=== PATIENT | female | born 1955 | race Caucasian/White ===

== ENCOUNTER → 2024-08-15 06:38 | Outpatient (REF) | payer MEDICARE, MEDICAID, SELFPAY ==
[2024-08-15 10:04] LABS: Hematocrit 34.7 % (37-47); Hemoglobin 10.4 g/dL (12.0-15.0); Mean Corpuscular Hgb 31.2 pg (27.0-32.0); Mean Corpuscular Volume 104.2 fL (81-99); Mean Platelet Vol. 9.8 fl (6.2-12.0); Platelet Count 236 K/mm3 (150-450); Red Blood Count 3.33 M/mm3 (4.2-5.4); White Blood Count 9.4 K/mm3 (4.4-11.0)
[2024-08-15 10:17] LABS: Anion Gap 7 (5-15); BUN 13 mg/dL (4-19); BUN/Creat Ratio 28.5 RATIO (10-20); Calcium,Total 8.8 mg/dL (7.6-11.0); Carbon Dioxide 31.7 mmol/L (21.0-32.0); Chloride 103 mmol/L (98-108); Creatinine, Serum 0.47 mg/dL (0.70-1.20); EST Glomerular Filtration Rate 104 (>60); Glucose 85 mg/dL (70-99); Potassium 3.9 mmol/L (3.3-5.1); Sodium Level 142 mmol/L (133-145)
== END ==
LOC: OLS.SANC 06:38
PROVIDERS: Visit Provider Internal Medicine
DX: J44.9 Chronic obstructive pulmonary disease, unspecified (principal); E87.6 Hypokalemia
CPT/HCPCS: 36415; 80048; 85027

== ENCOUNTER → 2024-08-22 04:00 | Outpatient (REF) | payer MEDICARE, MEDICAID, SELFPAY ==
--- OUTSIDE RECORDS SUMMARY | 2024-08-22 04:24 | XMS RPT_ITS | CCD ---
Author Organization [facility] ion Partnership [facility] Care Team Providers Care Knifeman Name Role Phone Ellis CHANDRAKANT Jameson Attending Unavailable Results Test Name Value Interpretation Reference Range Facil ity Basic Metabolic Profile (BMP )on 08-15-2024 BUN/CRE 28.5 RATIO High 10-20 [facility] Comment on above: Order Comment: 102-2 Performed By: #### L 100.0500, L500.2500 #### [facility] [address] [place], [address] Calcium [Mass/Vol] 8.8 mg/dL Normal 7.6-11.0 [facility] Comment on above: Order Comment: 102-2 Performed By: #### L 100.0500, L500.2500 #### [facility] [address] [place], [address] Chloride [Moles/Vol] 103 mmol/L Normal 98-108 [facility] Comment on above: Order Comment: 102-2 Performed By: #### L 100.0500, L500.2500 #### [facility] [address] [place], [address] CO2 [Moles/Vol] 31.7 mmol/L Normal 21.0-32.0 [facility] Comment on above: Order Comment: 102-2 Performed By: #### L 100.0500, L500.2500 #### [facility] [address] [place], [address] Creatinine [Mass/Vol] 0.47 mg/dL Low 0.70-1.20 [facility] Comment on above: Order Comment: 102-2 Performed By: #### L 100.0500, L500.2500 #### [facility] [address] [place], [address] GAP 7 Normal 5-15 [facility] Comment on above: Order Comment: 102-2 Performed By: #### L 100.0500, L500.2500 #### [facility] [address] [place], [address] GFR/1.73 sq M.predicted among non-blacks MDRD (S/P/Bld) [Vol rate/Area] 104 mL/min/{1.73_m2} Normal >60 [facility] Comment on above: Order Comment: 102-2 Result Comment: mL/m in/1.73m2 CKD-EPI Creatinine Equation (2020) Performed By: #### L 100.0500, L500.2500 #### [facility] [address] [place], [address] Glucose [Mass/Vol] 85 mg/dL Normal 70-99 [facility] Comment on above: Order Comment: 102-2 Performed By: #### L 100.0500, L500.2500 #### [facility] [address] [place], [address] Potassium [Moles/Vol] 3.9 mmol/L Normal 3.3-5.1 [facility] Comment on above: Order Comment: 102-2 Performed By: #### L 100.0500, L500.2500 #### [facility] [address] [place], [address] Sodium [Moles/Vol] 142 mmol/L Normal 133-145 [facility] Comment on above: Order Comment: 102-2 Performed By: #### L 100.0500, L500.2500 #### [facility] [address] [place], [address] Urea nitrogen [Mass/Vol] 13 mg/dL Normal 4-19 [facility] Comment on above: Order Comment: 102-2 Performed By: #### L 100.0500, L500.2500 #### [facility] [address] [place], [address] CBC-Complete Blood Cnt No Di ffon 08-15-2024 Erythrocyte distribution width (RBC) [Ratio] 14.0 % Normal 11.6-14.6 [facility] Comment on above: Order Comment: 102-2 Performed By: #### L 100.0500, L500.2500 #### [facility] [address] [place], [address] Hematocrit (Bld) [Volume fraction] 34.7 % Low 37-47 [facility] Comment on above: Order Comment: 102-2 Performed By: #### L 100.0500, L500.2500 #### [facility] [address] [place], [address] Hemoglobin (Bld) [Mass/Vol] 10.4 g/dL Low 12.0-15.0 [facility] Comment on above: Order Comment: 102-2 Performed By: #### L 100.0500, L500.2500 #### [facility] [address] [place], [address] MCH (RBC) [Entitic mass] 31.2 pg Normal 27.0-32.0 [facility] Comment on above: Order Comment: 102-2 Performed By: #### L 100.0500, L500.2500 #### [facility] [address] [place], [address] MCHC (RBC) [Mass/Vol] 30.0 g/dL Low 32-36 [facility] Comment on above: Order Comment: 102-2 Performed By: #### L 100.0500, L500.2500 #### [facility] [address] [place], [address] MCV (RBC) [Entitic vol] 104.2 fL High 81-99 [facility] Comment on above: Order Comment: 102-2 Performed By: #### L 100.0500, L500.2500 #### [facility] [address] [place], [address] Platelet mean volume (Bld) [Entitic vol] 9.8 fL Normal 6.2-12.0 [facility] Comment on above: Order Comment: 102-2 Performed By: #### L 100.0500, L500.2500 #### [facility] [address] [place], [address] Platelets (Bld) [#/Vol] 236 10*3/uL Normal 150-450 [facility] Comment on above: Order Comment: 102-2 Performed By: #### L 100.0500, L500.2500 #### [facility] [address] [place], [address] RBC (Bld) [#/Vol] 3.33 10*6/uL Low 4.2-5.4 [facility] Comment on above: Order Comment: 102-2 Performed By: #### L 100.0500, L500.2500 #### [facility] [address] [place], [address] RDW SD 54.0 fl High 35.1-43.9 [facility] Comment on above: Order Comment: 102-2 Performed By: #### L 100.0500, L500.2500 #### [facility] [address] [place], [address] WBC (Bld) [#/Vol] 9.4 10*3/uL Normal 4.4-11.0 [facility] Comment on above: Order Comment: 102-2 Performed By: #### L 100.0500, L500.2500 #### [facility] [address] [place], [address] Encounters Encounter Date Encounter Type Care Provider Facility Start: 08-15-2024 ambulatory Jameson Mcgraw lity:[facility] Payers Date Payer Category Payer Self-pay Summary Purpose Family History No Family History Records Found Advance Directives No Advanced Directives Records Found Additional Source Comments INFORMATION SOURCE (unrecogn ized section and content) DATE CREATED AUTHOR 08/18/2024 [facility] FOR RECORDS PERTAINING TO PATIENTS WHO ARE OR HAVE BEEN ENROLLED IN A CHEMICAL DEPENDENCY/SUBSTANCEABUSE PROGRAM, SOME INFORMATION MAY BE OMITTED. This clinical summary was aggregated from multiple sources. Caution should be exercised in using it in the provision of clinical care. This summary normalizes information from multiple sources, and as a consequence, information in this document may materially change the coding, format and clinical context of patient data. In addition, data may be omitted in some cases. CLINICAL DECISIONS SHOULD BE BASED ON THE PRIMARY CLINICAL RECORDS. [employer] provides no warranty or guarantee of the accuracy or completeness of information in this document.
--- OUTSIDE RECORDS SUMMARY | 2024-08-22 04:24 | XMS RPT_ITS | CCD ---
Author Organization [facility] ion Partnership [facility] Care Team Providers Care Pin Game Machine Inspector Name Role Phone Ellis CHANDRAKANT Jmaeson Attending Unavailable Results Test Name Value Interpretation Reference Range Facil ity Basic Metabolic Profile (BMP )on 08-15-2024 BUN/CRE 28.5 RATIO High 10-20 [facility] Comment on above: Order Comment: 102-2 Performed By: #### L 100.0500, L500.2500 #### [facility] [address] [place], [address] Calcium [Mass/Vol] 8.8 mg/dL Normal 7.6-11.0 [facility] Comment on above: Order Comment: 102-2 Performed By: #### L 100.0500, L500.2500 #### [facility] [address] [place], [address] Chloride [Moles/Vol] 103 mmol/L Normal 98-108 [facility] Comment on above: Order Comment: 102-2 Performed By: #### L 100.0500, L500.2500 #### [facility] [address] [place], [address] CO2 [Moles/Vol] 31.7 mmol/L Normal 21.0-32.0 [facility] Comment on above: Order Comment: 102-2 Performed By: #### L 100.0500, L500.2500 #### [facility] [address] [place], [address] Creatinine [Mass/Vol] 0.47 mg/dL Low 0.70-1.20 [facility] Comment on above: Order Comment: 102-2 Performed By: #### L 100.0500, L500.2500 #### [facility] [address] [place], [address] GAP 7 Normal 5-15 [facility] Comment on above: Order Comment: 102-2 Performed By: #### L 100.0500, L500.2500 #### [facility] [address] [place], [address] GFR/1.73 sq M.predicted among non-blacks MDRD (S/P/Bld) [Vol rate/Area] 104 mL/min/{1.73_m2} Normal >60 [facility] Comment on above: Order Comment: 102-2 Result Comment: mL/m in/1.73m2 CKD-EPI Creatinine Equation (2020) Performed By: #### L 100.0500, L500.2500 #### [facility] [address] [place], [address] Glucose [Mass/Vol] 85 mg/dL Normal 70-99 [facility] Comment on above: Order Comment: 102-2 Performed By: #### L 100.0500, L500.2500 #### [facility] [address] [place], [address] Potassium [Moles/Vol] 3.9 mmol/L Normal 3.3-5.1 [facility] Comment on above: Order Comment: 102-2 Performed By: #### L 100.0500, L500.2500 #### [facility] [address] [place], [address] Sodium [Moles/Vol] 142 mmol/L Normal 133-145 [facility] Comment on above: Order Comment: 102-2 Performed By: #### L 100.0500, L500.2500 #### [facility] [address] [place], [address] Urea nitrogen [Mass/Vol] 13 mg/dL Normal 4-19 [facility] Comment on above: Order Comment: 102-2 Performed By: #### L 100.0500, L500.2500 #### [facility] [address] [place], [address] CBC-Complete Blood Cnt No Di ffon 08-15-2024 Erythrocyte distribution width (RBC) [Ratio] 14.0 % Normal 11.6-14.6 [facility] Comment on above: Order Comment: 102-2 Performed By: #### L 100.0500, L500.2500 #### [facility] [address] [place], [address] Hematocrit (Bld) [Volume fraction] 34.7 % Low 37-47 [facility] Comment on above: Order Comment: 102-2 Performed By: #### L 100.0500, L500.2500 #### [facility] [address] [place], [address] Hemoglobin (Bld) [Mass/Vol] 10.4 g/dL Low 12.0-15.0 [facility] Comment on above: Order Comment: 102-2 Performed By: #### L 100.0500, L500.2500 #### [facility] [address] [place], [address] MCH (RBC) [Entitic mass] 31.2 pg Normal 27.0-32.0 [facility] Comment on above: Order Comment: 102-2 Performed By: #### L 100.0500, L500.2500 #### [facility] [address] [place], [address] MCHC (RBC) [Mass/Vol] 30.0 g/dL Low 32-36 [facility] Comment on above: Order Comment: 102-2 Performed By: #### L 100.0500, L500.2500 #### [facility] [address] [place], [address] MCV (RBC) [Entitic vol] 104.2 fL High 81-99 [facility] Comment on above: Order Comment: 102-2 Performed By: #### L 100.0500, L500.2500 #### [facility] [address] [place], [address] Platelet mean volume (Bld) [Entitic vol] 9.8 fL Normal 6.2-12.0 [facility] Comment on above: Order Comment: 102-2 Performed By: #### L 100.0500, L500.2500 #### [facility] [address] [place], [address] Platelets (Bld) [#/Vol] 236 10*3/uL Normal 150-450 [facility] Comment on above: Order Comment: 102-2 Performed By: #### L 100.0500, L500.2500 #### [facility] [address] [place], [address] RBC (Bld) [#/Vol] 3.33 10*6/uL Low 4.2-5.4 [facility] Comment on above: Order Comment: 102-2 Performed By: #### L 100.0500, L500.2500 #### [facility] [address] [place], [address] RDW SD 54.0 fl High 35.1-43.9 [facility] Comment on above: Order Comment: 102-2 Performed By: #### L 100.0500, L500.2500 #### [facility] [address] [place], [address] WBC (Bld) [#/Vol] 9.4 10*3/uL Normal 4.4-11.0 [facility] Comment on above: Order Comment: 102-2 Performed By: #### L 100.0500, L500.2500 #### [facility] [address] [place], [address] Encounters Encounter Date Encounter Type Care Provider Facility Start: 08-15-2024 ambulatory Jameson Mcgraw lity:[facility] Payers Date Payer Category Payer Self-pay Summary Purpose Family History No Family History Records Found Advance Directives No Advanced Directives Records Found Additional Source Comments INFORMATION SOURCE (unrecogn ized section and content) DATE CREATED AUTHOR 08/18/2024 [facility] FOR RECORDS PERTAINING TO PATIENTS WHO [...] BE BASED ON THE PRIMARY CLINICAL RECORDS. [employer] provides no warranty or guarantee of the accuracy or completeness of information in this document.
[2024-08-22 08:18] LABS: Thyroid Stim Hormone (TSH) 0.786 uIU/mL (0.300-4.200)
== END ==
LOC: OLS.SANC 04:00
PROVIDERS: Referring Provider Internal Medicine; Visit Provider Internal Medicine
DX: E03.9 Hypothyroidism, unspecified (principal)
CPT/HCPCS: 36415; 84443

== ENCOUNTER → 2024-09-14 | Outpatient (REF) | payer MEDICARE, MEDICAID, SELFPAY ==
--- OUTSIDE RECORDS SUMMARY | 2024-09-14 04:16 | XMS RPT_ITS | CCD ---
Author Organization [facility] CliniSyin Care Team Providers Care Credit Department Manager Name Role Phone Herminia Case Primary Care Provider Evie, Herminia Primary Care Unavailable Evie, Herminia Referring Unavailable Ziyad Menendez Attending Unavailable Evie, Herminia Primary Care Unavailable Distel, Herminia Referring Unavailable Ziyad Menendez Attending Unavailable Evie, Herminia Primary Care Unavailable Distel, Herminia Referring Unavailable Ziyad Menendez Attending Unavailable Distel, Herminia Primary Care Unavailable Distel, Herminia Referring Unavailable Ziyad Menendez Attending Unavailable Distel, Herminia Primary Care Unavailable Distel, Herminia Referring Unavailable Ziyad Menendez Attending Unavailable Distel Herminia MAHAJAN Primary Care Provider Herminia Case MD Primary Care Provider Herminia Case MD Primary Care Provider Ziyad Menendez MD Unavailable Aj LAMINATING PRESS OPERATOR - AN/SSN 2 4 OPERATOR, Sally Unavailable Afshin LAMINATING PRESS OPERATOR - AN/SSN 2 4 OPERATOR, Kisha Unavailable Ziyad Menendez MD Unavailable Aj LAMINATING PRESS OPERATOR - AN/SSN 2 4 OPERATOR, Sally Unavailable Ziyad Menendez MD Unavailable Herminia Case MD Primary Care Provider Herminia Case MD Primary Care Provider Ziyad Menendez MD Unavailable Aj LAMINATING PRESS OPERATOR - AN/SSN 2 4 OPERATOR, Sally Unavailable Melva Juárez PA-C Unavailable Herminia Case MD Primary Care Provider Evie MAHAJAN, Herminia Unavailable Evie MAHAJAN, Herminia Unavailable DISTEL, HERMINIA Primary Care Unavailable BARBI GOLDBERG Attending Unavailabl e DISTEL, HERMINIA Attending Unavailable DISTEL, HERMINIA Primary Care Unavailable DISTEL, HERMINIA Attending Unavailable DISTEL, HERMINIA Primary Care Unavailable DISTEL, HERMINIA Primary Care Unavailable SELF Referring Unavailable DISTEL, HERMINIA Attending Unavailable DISTEL, HERMINIA Primary Care Unavailable JOAQUINA MARTINEZ Attending Unava ilable Ellis STALLINGS, Jameson Attending Unavailable Ellis STALLINGS, Jameson Attending Unavailable DISTEL, HERMINIA Primary Care Unavailable ELYSSA TESFAYE Attending Unavailable DISTEL, HERMINIA Primary Care Unavailable SHON, ZIYAD Attending Unavailable SHON, ZIYAD Referring Unavailable DISTEL, HERMINIA Primary Care Unavailable DISTEL, HERMINIA Primary Care Unavailable BETSEY GRESHAM Consulting Unavailable DEJUAN BISHOP Admitting Unavailable RENA BEVERLY Attending Unavailable DISTEL, HERMINIA Primary Care Unavailable MIGUEL, NICKOLAS Admitting Unavailable BETSEY GRESHAM Consulting Unavailable ROLAND ORTIZ Attending Unavailable EVANGELINA DESAI Consulting Unavailable DISTEL, HERMINIA Primary Care Unavailable FLAKO ALTAMIRANO Attending Unavailable Allergies Allergy Classification Reported Allergen(s) Allergy Type Date of Onset Reaction(s) Facility (20 sources) Seasonal allergy; Translations: [SEASONAL ALLERGIES] Allergy to substance 08-16-2017 Intolerance [facility] Work Phone: (20 sources) Pollen Allergy to substance 08-16-2017 Unknown [facility] Medications Current Medications Medication Drug Class(es) Dates Sig (Normalized) Sig (Original) acetaminophen 325 mg / oxyCODONE hydrochloride 5 mg oral tablet (20 sources) Opioid Agonist Start: 10-17-2023 End: 08-22-2024 take 1 tablet by mouth every six hours as needed for pain oxyCODONE-acetamino phen (PERCOCET) 5-325 mg tablet Indications: Compression fracture of body of thoracic vertebra (HCC) , Other closed nondisplaced fracture of proximal end of right humerus with routine healing, subsequent encounter Take 1 tablet by mouth every 6 hours as needed for pain for up to 30 days. 120 tablet 07/23/2024 Active Start: 10-16-2023 End: 10-16-2023 1 tablet, Oral, Once, On 10/16/23 at 1950, For 1 dose, Maximum dose of acetaminophen is 4000 mg from all sources in 24 hours. Start: 05-03-2023 End: 10-15-2023 take 1 tablet by mouth every six hours as needed for pain oxyCODONE-acetaminophen (PERCOCET) 5-325 mg tablet Indications: Compression fracture of body of thoracic vertebra (HCC) , Other closed nondisplaced fracture of proximal end of right humerus with routine healing, subsequent encounter Take 1 tablet by mouth every 6 hours as needed for pain for up to 30 days. 120 tablet 0 09/15/2023 10/15/2023 Active Start: 02-18-2023 End: 02-23-2023 take 1 tablet by mouth every six hours as needed for pain oxyCODONE-acetaminophen (Percocet) 5-325 MG tablet Indications: Nondisplaced fracture of neck of left femur (HCC) Take 1 tablet by mouth every 6 hours as needed for moderate pain (4-6) for up to 5 days. 15 tablet 0 02/18/2023 02/23/2023 Active Start: 02-13-2023 End: 02-18-2023 take 1 tablet by mouth every six hours as needed for pain oxyCODONE-acetaminophen (Percocet) 5-325 MG per tablet 1 tablet Start: 11-08-2022 End: 11-11-2022 take 1 tablet by mouth every six hours as needed for pain oxyCODONE-acetaminophen (Percocet) 5-325 MG tablet Indications: Closed displaced intertrochanteric fracture of left femur, initial encounter ([facility]) Take 1 tablet by mouth every 6 hours as needed for moderate pain (4-6) or severe pain (7-10) for up to 3 days. 12 tablet 0 11/08/2022 11/11/2022 Active Start: 11-06-2022 End: 11-07-2022 take 1 tablet by mouth every six hours as needed for pain and pain oxyCODONE-acetaminophen (Percocet) 5-325 MG per tablet 1 tablet Start: 08-28-2022 End: 05-04-2023 take 1 tablet by mouth every four hours as needed for pain oxyCODONE-acetaminophen (PERCOCET) 5-325 mg tablet Indications: Compression fracture of body of thoracic vertebra (HCC) , Other closed nondisplaced fracture of proximal end of right humerus with routine healing, subsequent encounter Take 1 tablet by mouth every 4 hours as needed for pain for up to 30 days. 134 tablet 0 04/04/2023 05/02/2023 Discontinued Start: 06-03-2022 End: 08-26-2022 take 1 tablet by mouth every four hours as needed for pain oxyCODONE-acetaminophen (PERCOCET) 5-325 mg tablet Indications: Compression fracture of body of thoracic vertebra (HCC) , Other closed nondisplaced fracture of proximal end of right humerus with routine healing, subsequent encounter Take 1 tablet by mouth every 4 hours as needed for pain for up to 30 days. 134 tablet 0 07/27/2022 08/26/2022 Active Start: 05-24-2022 End: 05-29-2022 take 1 tablet by mouth every six hours as needed for pain oxyCODONE-acetaminophen (Percocet) 10-325 MG tablet Indications: Closed fracture of neck of right humerus, initial encounter Take 1 tablet by mouth every 6 hours as needed for moderate pain (4-6) or severe pain (7-10) for up to 5 days. 15 tablet 0 05/24/2022 05/29/2022 Active Start: 05-21-2022 End: 05-24-2022 take 2 tablets by mouth every six hours as needed for pain oxyCODONE-acetaminophen (Percocet) 5-325 MG per tablet 2 tablet Start: 04-09-2022 End: 06-06-2022 take 1 tablet by mouth every six hours as needed for pain oxyCODONE-acetaminophen (Percocet) 5-325 MG tablet Indications: Humeral head fracture, right, closed, initial encounter Take 1 tablet by mouth every 6 hours as needed for moderate pain (4-6) for up to 5 days. 12 tablet 0 05/23/2022 05/24/2022 Discontinued (Stop taking at discharge) Start: 06-01-2021 End: 04-07-2022 take 1 tablet by mouth every six hours as needed for pain oxyCODONE-acetaminophen (PERCOCET) 5-325 mg tablet Indications: Compression fracture of body of thoracic vertebra (HCC) Take 1 tablet by mouth every 6 hours as needed for pain for up to 30 days. 120 tablet 0 03/08/2022 04/07/2022 Discontinued Start: 10-16-2020 End: 10-16-2020 oxyCODONE-acetaminophen (PER COCET) 5-325 MG per tablet 1 tablet Start: 11-21-2019 oxyCODONE-acet aminophen (PERCOCET) 5-325 MG per tablet 1 tablet Start: 10-27-2019 End: 10-27-2019 oxyCODONE-acetaminophen (PER COCET) 5-325 MG per tablet 2 tablet Start: 10-27-2019 End: 11-02-2019 oxyCODONE-acetaminophen (PER COCET) 7.5-325 MG per tablet Indications: Compression fracture of L3 lumbar vertebra, sequela Take 1 tablet by mouth every 8 hours as needed for Pain for up to 6 days. Intended supply: 30 days 18 tablet 0 10/27/2019 11/02/2019 Active Start: 10-21-2019 End: 10-21-2019 oxyCODONE-acetaminophen (PER COCET) 5-325 MG per tablet 1 tablet Start: 10-21-2019 End: 10-24-2019 take 1 tablet by mouth every six hours as needed for pain, then take 1 tablet by mouth as needed for pain oxyCODONE-acetaminophen (PERCOCET) 5-325 MG per tablet Indications: Compression fracture of lumbar vertebra, initial encounter, unspecified lumbar vertebral level (HCC) Take 1 tablet by mouth every 6 hours as needed for Pain for up to 3 days. Intended supply: 3 days. Take lowest dose possible to manage pain 12 tablet 0 10/21/2019 10/24/2019 Active Start: 08-02-2019 End: 10-21-2019 take 1 tablet by mouth every six hours as needed for pain 1 tablet, Oral, EVERY 6 HOURS PRN, Pain Severe (7-10), Starting Olga 08/02/19 at 2107 Maximum dose of acetaminophen is 4000 mg from all sources in 24 hours. Start: 08-02-2019 End: 08-02-2019 oxyCODONE-acetaminophen (PER COCET) 5-325 MG per tablet 1.5 tablet take 1 tablet by shanna th every four hours as needed for pain oxyCODONE-acetaminophen (PERCOCET) 7.5-325 MG per tablet Take 1 tablet by mouth every 4 hours as needed for Pain. 0 Active Comment on above: Take 1 tablet by shanna th every 6 hours as needed for pain for up to 30 days. Take 1 tablet by shanna th every 6 hours as needed for pain for up to 30 days. Do not start before July 30, 2021. Take 1 tablet by shanna th every 6 hours as needed for pain for up to 30 days. Do not start before April 09, 2022. Take 1 tablet by shanna th every 4 hours as needed for pain for up to 30 days. albuterol 0.83 mg/ml inhalation solution (20 sources) beta2-Adrenergic Agonist Start: 08-08-2024 End: 08-08-2025 albuterol (2.5 MG/3ML) 0.083% nebulizer solution Indications: Pulmonary emphysema, unspecified emphysema type (HCC) , Chronic obstructive pulmonary disease, unspecified COPD type (HCC) Take 3 mL (2.5 mg) by nebulization 2 times daily. 08/08/2024 08/08/2025 Active Start: 08-04-2024 End: 08-08-2024 2.5 mg, Nebulization, 2 time s daily, First dose on 08/04/24 at 0800, Initiate RT Bronchodilator Protocol? Yes Start: 07-30-2024 End: 08-08-2024 2.5 mg, Nebulization, Every 4 hours PRN, wheezing, shortness of breath, Starting on 07/30/24 at 2149, Initiate RT Bronchodilator Protocol? Yes Start: 12-14-2023 End: 06-11-2024 take 2 puff(s) by inhalation every four hours as needed for wheezing albuterol HFA (PROVENTIL HFA, VENTOLIN HFA) 90 mcg/actuation inhaler Indications: Panlobular emphysema (HCC) Inhale 2 Puffs as instructed every 4 hours as needed for wheezing/shortness of breath. 18 g 5 12/14/2023 Active Start: 02-13-2023 End: 02-18-2023 albuterol (2.5 MG/3ML) 0.083 % nebulizer solution 2.5 mg Start: 06-22-2022 take 3 mL by inhalat ion every four hours as needed albuterol (PROVENTIL) 2.5 mg /3 mL (0.083 %) nebulizer solution INHALE 3 ML VIA NEBULIZER EVERY 4 HOURS NEEDED FOR WHEEZE OR FOR SHORTNESS OF BREATH 90 mL 1 06/22/2022 Active Start: 06-22-2022 End: 06-22-2022 take 2.5 mg by inhalation every four hours as needed albuterol (PROVENTIL) 2.5 mg /3 mL (0.083 %) nebulizer solution Use 3 mL via nebulizer every 4 hours as needed for wheezing/shortness of breath. 30 mL 1 06/22/2022 06/22/2022 Discontinued Start: 08-06-2021 End: 02-18-2023 take 2 puff(s) by inhalation every four hours as needed albuterol 108 (90 Base) MCG/ACT inhaler Inhale 2 puffs every 4 hours as needed. 08/06/2021 Active Start: 06-06-2020 End: 02-02-2022 take 2 puff(s) by inhalation every four hours as needed for wheezing albuterol HFA (PROVENTIL HFA, VENTOLIN HFA) 90 mcg/actuation inhaler Indications: Panlobular emphysema (HCC) Inhale 2 Puffs as instructed every 4 hours as needed for wheezing/shortness of breath. 18 g 5 08/06/2021 Active Start: 03-16-2020 albuterol (PRO VENTIL) nebulizer solution 2.5 mg Start: 11-21-2019 2.5 mg, Nebuli zation, EVERY 4 HOURS PRN, Wheezing, Starting Tue11/21/19 at 2145 Start: 12-30-2015 albuterol (PRO VENTIL) 2.5 mg /3 mL (0.083 %) nebulizer solution albuterol sulfat e HFA 108 (90 BASE) MCG/ACT inhaler Indications: as needed noted on 02/20 Inhale 2 puffs into the lungs every 6 hours as needed for Wheezing Indications: as needed noted on 02/20 Active albuterol sulfat e HFA 108 (90 BASE) MCG/ACT inhaler Indications: as needed noted on 02/20 Inhale 2 puffs into the lungs every 6 hours as needed for Wheezing Indications: as needed noted on 02/20 Active Comment on above: Inhale 2 Puffs as in structed every 4 hours as needed for Wheezing/Shortness of Breath. Use 3 mL via nebuliz er every 4 hours as needed for wheezing/shortness of breath. INHALE 3 ML VIA NEBU LIZER EVERY 4 HOURS NEEDED FOR WHEEZE OR FOR SHORTNESS OF BREATH albuterol sulfate HFA 108 (90 Base) MCG/ACT inhaler (1 source) Start: 08-02-19 albuterol sulfate HFA 108 (90 Base) MCG/ACT inhaler alendronic acid 70 mg oral tablet (20 sources) Bisphosphonate Start: 12-15-19 End: 12-27-19 take 1 tablet by mouth every week alendronate (FOSAMAX) 70 mg tablet Indications: Age-related osteoporosis without current pathological fracture TAKE 1 TABLET BY MOUTH ONE TIME A WEEK. 4 tablet 11 12/27/2023 12/26/2024 Active Start: 10-28-2020 End: 10-28-2021 take 1 tablet by mouth every week alendronate (FOSAMAX) 70 mg tablet Indications: Age-related osteoporosis without current pathological fracture Take 1 tablet by mouth one time a week. 12 tablet 3 10/28/2020 Active Alendronate Sodi um (FOSAMAX PO) Take by mouth once a week 0 Active Comment on above: Take 1 tablet by shanna th one time a week. aspirin 81 mg delayed release oral tablet (20 sources) Platelet Aggregation Inhibitor, Nonsteroidal Anti-inflammatory Drug Start: 11-25-2019 End: 08-08-2024 aspirin 81 MG EC tablet Take 81 mg by mouth. 11/25/2019 Active Start: 11-21-2019 aspirin EC tab let 81 mg Comment on above: Take 81 mg by mouth. atorvastatin 40 mg oral tablet (20 sources) HMG-CoA Reductase Inhibitor Start: 11-21-19 End: 07-31-19 take 1 tablet by mouth once daily atorvastatin (LIPITOR) 40 mg tablet Indications: Hyperlipidemia, mixed TAKE 1 TABLET BY MOUTH EVERY DAY AT NIGHT 90 tablet 3 2022 Active Comment on above: TAKE 1 TABLET BY SHANNA TH EVERY DAY AT NIGHT azithromycin 250 mg oral tablet (2 sources) Macrolide Antimicrobial Start: 03-16-20 End: 03-26-19 azithromycin (ZITHROMAX) 250 MG tablet Indications: COPD exacerbation (HCC) , Bronchitis Take 2 tablets (500 mg total) on Day 1, followed by 1 tablet (250 mg) once daily on Days 2 through 5. 1 packet 0 03/16/2020 03/26/2020 Active Start: 08-03-2019 End: 08-03-2019 azithromycin (ZITHROMAX) tab let 500 mg benzonatate 100 mg oral capsule (1 source) Non-narcotic Antitussive Start: 03-16-2020 End: 03-23-2020 take 1 capsule by mouth three times daily as needed for cough benzonatate (TESSALON PERLES) 100 MG capsule Take 1 capsule by mouth 3 times daily as needed for Cough 30 capsule 0 03/16/2020 03/23/2020 Active bisacodyl 5 mg delayed release oral tablet (1 source) Stimulant Laxative Start: 11-21-2019 take 5 mg by mouth once daily as needed for constipation 5 mg, Oral, DAILY PRN, Constipation, Starting Tue11/21/19 at 2148 First line therapy for constipation. 24 hr buPROPion hydrochloride 150 mg extended release oral tablet (20 sources) Aminoketone Start: 07-16-2024 End: 08-08-2024 take 1 tablet by mouth once daily buPROPion XL (WELLBUTRIN XL) 150 mg 24 hr tablet Indications: Major depression, recurrent, chronic TAKE 1 TABLET BY MOUTH EVERY DAY 90 tablet 3 07/16/2024 Active Start: 08-06-2021 End: 11-08-2022 take 1 tablet by mouth every twenty-four hours in the morning buPROPion XL (Wellbutrin XL) 150 MG 24 hr tablet Take 150 mg by mouth in the morning. 08/06/2021 Active Start: 02-02-2021 End: 09-22-2023 take 1 tablet by mouth once daily buPROPion XL (WELLBU JOSEPH XL) 150 mg 24 hr tablet Indications: Major depression, recurrent, chronic take 1 tablet by mouth every day 90 tablet 3 07/20/2023 Active Start: 11-22-2019 take 150 mg by mouth once sean y 150 mg, Oral, DAILY, First dose on Olga 11/22/19 at 0900 Do not crush or break. Start: 08-03-2019 take 50 mg by mouth once daily 50 mg, Oral, DAILY, First dose on Tue08/03/19 at 0900 take 150 mg by mouth once daily buPROPion HCl (WELLBUTRIN PO) Take 150 mg by mouth daily 0 Active take 50 mg by mouth once daily b uPROPion HCl (WELLBUTRIN PO) Take 50 mg by mouth daily 0 Active Comment on above: Take 1 tablet by shanna th once daily. TAKE 1 TABLET BY SHANNA TH EVERY DAY busPIRone hydrochloride 15 mg oral tablet (20 sources) Start: 08-14-2024 take 1 tablet by mouth three times daily busPIRone (BUSPAR) 15 mg tablet Indications: PAUL (generalized anxiety disorder) TAKE 1 TABLET BY MOUTH THREE TIMES A DAY 270 tablet 1 08/14/2024 Active Start: 02-07-2024 End: 03-08-2024 take 1 tablet by mouth three times daily busPIRone (BUSPAR) 15 mg tablet Indications: PAUL (generalized anxiety disorder) Take 1 tablet by mouth three times a day. 90 tablet 5 02/07/2024 03/08/2024 Active Start: 09-21-2023 End: 08-08-2024 take 1 tablet by mouth twice daily busPIRone (Buspar) 15 MG tablet Take 1 tablet (15 mg) by mouth 2 times daily. 60 tablet 09/22/2023 Active Start: 05-02-2023 End: 10-16-2023 take 1 tablet by mouth three times daily busPIRone (BUSPAR) 15 mg tablet Indications: PAUL (generalized anxiety disorder) Take 1 tablet by mouth three times a day. 90 tablet 0 09/16/2023 10/16/2023 Active Comment on above: Take 1 tablet by shanna th three times a day. calcium carbonate 625 mg / cholecalciferol 125 unt oral tablet (20 sources) Vitamin D calcium carbonate-cholecalcifer ol (Oyster Shell) 250-3.125 MG-MCG tablet Take 1 tablet by mouth. Active Calcium Citrate / Vitamin D (20 sources) Calcium Citrate- Vitamin D (CALCIUM + D PO) Take by mouth 2 times daily 0 Active cefTRIAXone sodium 1 g in sodium chloride 0.9 % 100 mL IVPB (add-vantage) (1 source) Start: 08-03-19 cefTRIAXone sodium 1 g in sodium chloride 0.9 % 100 mL IVPB (add-vantage) cholecalciferol 0.025 mg oral tablet (6 sources) Vitamin D Start: 09-22-19 End: 10-23-19 24 take 1 tablet by mouth once daily cholecalciferol (Vitamin D-3) 25 MCG (1000 UT) tablet Take 1 tablet (1,000 Units) by mouth daily. 30 tablet 09/23/2023 10/23/2023 Active cyclobenzaprine hydrochloride 5 mg oral tablet (20 sources) Muscle Relaxant Start: 01-09-20 End: 06-27-19 take 1 tablet by mouth every twelve hours cyclobenzaprine (FLEXERIL) 5 mg tablet Indications: Compression fracture of body of thoracic vertebra (HCC) , Other closed nondisplaced fracture of proximal end of right humerus with routine healing, subsequent encounter Take 1 tablet by mouth every 12 hours. 30 tablet 2 06/26/2024 Active Start: 06-11-2023 End: 01-09-2024 take 1 tablet by mouth twice daily as needed cyclobenzaprine (FLEXERIL) 5 mg tablet Indications: Compression fracture of body of thoracic vertebra (HCC) , Other closed nondisplaced fracture of proximal end of right humerus with routine healing, subsequent encounter take 1 tablet by mouth twice a day as needed 30 tablet 2 08/08/2023 01/09/2024 Discontinued Start: 02-14-2023 End: 09-22-2023 take 1 tablet by mouth three times daily as needed for muscle spasms cyclobenzaprine (Flexeril) 10 MG tablet Take 1 tablet (10 mg) by mouth 3 times daily as needed for muscle spasms for up to 10 days. 02/18/2023 09/22/2023 Discontinued (Stop taking at discharge) Start: 05-03-2022 End: 05-08-2023 take 1 tablet by mouth twice daily as needed cyclobenzaprine (FLEXERIL) 5 mg tablet Indications: Compression fracture of body of thoracic vertebra (HCC) , Other closed nondisplaced fracture of proximal end of right humerus with routine healing, subsequent encounter Take 1 tablet by mouth two times a day as needed. 90 tablet 0 02/07/2023 05/08/2023 Active Start: 02-09-2022 End: 04-07-2022 take 1 tablet by mouth three times daily as needed cyclobenzaprine (FLEXERIL) 5 mg tablet Indications: Chronic midline low back pain without sciatica Take 1 tablet by mouth three times daily as needed. 30 tablet 0 03/08/2022 04/07/2022 Active Start: 11-21-2021 End: 12-21-2021 take 1 tablet by mouth three times daily as needed cyclobenzaprine (FLEXERIL) 5 mg tablet Indications: Chronic midline low back pain without sciatica Take 1 tablet by mouth three times daily as needed. 30 tablet 0 11/21/2021 12/21/2021 Active Start: 08-06-2021 End: 09-05-2021 take 1 tablet by mouth three times daily as needed cyclobenzaprine (FLEXERIL) 5 mg tablet Indications: Chronic midline low back pain without sciatica Take 1 tablet by mouth three times daily as needed. 30 tablet 0 08/06/2021 09/05/2021 Active Start: 05-06-2021 End: 08-04-2021 take 1 tablet by mouth twice daily as needed cyclobenzaprine (FLEXERIL) 5 mg tablet Indications: Compression fracture of body of thoracic vertebra (HCC) Take 1 tablet by mouth twice daily as needed. 30 tablet 2 05/06/2021 08/04/2021 Active Start: 11-21-2019 take 10 mg by mouth three times daily as needed for muscle spasms 10 mg, Oral, 3 TIMES DAILY PRN, Muscle spasms, Starting 11/21/19 at 2146 Start: 01-08-2016 End: 10-21-2019 cyclobenzaprine (FLEXERIL) 1 0 MG tablet Indications: taking as needed noted on 02/07 Take 10 mg by mouth 2 times daily as needed Indications: taking as needed noted on 02/07 0 01/08/2016 Active Comment on above: Take 1 tablet by shanna twice daily as needed. Take 1 tablet by shanna three times daily as needed. TAKE 1 TABLET BY SHANAN TWICE A DAY NEEDED Take 1 tablet by shanna two times a day as needed. Take 10 mg by mouth. docusate sodium 50 mg / sennosides, group home 8.6 mg oral tablet (20 sources) Start: 09-21-2023 End: 10-22-2023 take 1 tablet by mouth once daily senna-docusate sodium (Senokot-S) 8.6-50 MG tablet Take 1 tablet by mouth Nightly. 30 tablet 09/22/2023 10/22/2023 Active Start: 02-08-2020 senna-docusate (PERICOLACE) 8.6-50 MG per tablet Indications: Drug induced constipation Take 2 tablets by mouth 2 times daily as needed for Constipation (Take 2 tabs daily and if needed take twice a day to maintain regular BMs) 0 02/08/2020 Active Start: 11-21-2019 take 1 tablet by shanna th twice daily as needed for constipation 1 tablet, Oral, 2 TIMES DAILY PRN, constipation, Starting 11/21/19 at 2146 Start: 10-27-2019 End: 02-08-2020 take 8.6-50 mg by mouth once as needed senna-docusate (PERICOLACE) 8.6-50 MG per tablet Take 2 tablets by mouth daily as needed for Constipation 20 tablet 0 10/27/2019 02/08/2020 Discontinued doxycycline hyclate 100 mg oral capsule (20 sources) Tetracycline-class Drug Start: 12-30-2023 End: 01-06-2024 take 1 capsule by mouth twice daily doxycycline hyclate (VIBRAMYCIN) 100 mg capsule Indications: Panlobular emphysema (HCC) Take 1 capsule (100 mg) by mouth two times a day for 7 days. 14 capsule 12/30/2023 01/06/2024 Active Start: 08-07-2023 End: 08-17-2023 take 1 tablet by mouth twice daily doxycycline (Vibra-Tabs) 100 MG tablet Take 1 tablet (100 mg) by mouth 2 times daily for 10 days. Take with a full glass of water and do not lie down for at least 30 minutes after. 20 tablet 0 08/07/2023 08/17/2023 Active Start: 09-15-2022 End: 09-25-2022 take 1 capsule by mouth twice daily doxycycline hyclate (VIBRAMYCIN) 100 mg capsule Indications: Panlobular emphysema (HCC) Take 1 capsule by mouth twice daily for 10 days. 20 capsule 0 09/15/2022 09/25/2022 Active Start: 01-30-2020 End: 05-21-2022 doxycycline (Vibramycin) 100 MG capsule Start: 08-04-2019 End: 08-09-2019 take 1 tablet by mouth twice daily doxycycline hyclate (VIBRA-TABS) 100 MG tablet Take 1 tablet by mouth 2 times daily for 5 days 10 tablet 0 08/04/2019 08/09/2019 Active Comment on above: Take 1 capsule by [facility] twice daily for 7 days. Take 1 capsule by mo [facility] twice daily for 10 days. 60 actuat fluticasone propionate 0.25 mg/actuat / salmeterol 0.05 mg/actuat dry powder inhaler (20 sources) Corticosteroid, beta2-Adrenergic Agonist Start: 08-19-2024 take 250 ug by inhalation once daily Fluticasone-Salme terol 250-50 MCG/ACT aerosol powder Inhale 250 mcg daily. 30 DAY SUPPLY 08/19/2024 Active Start: 04-24-2024 End: 10-21-2024 take 1 puff(s) by mouth twice daily fluticasone-salmeterol (ADVAIR, WIXELA) 250-50 mcg/dose inhaler Indications: Pulmonary emphysema, unspecified emphysema type (HCC) Inhale 1 Puff as instructed two times a day. RINSE AND GARGLE MOUTH WITH WATER AFTER EACH USE. 60 Each 5 04/24/2024 10/21/2024 Active Start: 01-09-2024 End: 01-11-2024 take 1 puff(s) by mouth twice daily fluticasone-salmeterol (ADVAIR, WIXELA) 250-50 mcg/dose inhaler Indications: Pulmonary emphysema, unspecified emphysema type (HCC) INHALE 1 PUFF INSTRUCTED TWO TIMES A DAY. RINSE AND GARGLE MOUTH WITH WATER AFTER EACH USE. 60 Each 5 01/09/2024 01/11/2024 Discontinued (Patient chooses alternative therapy) Start: 01-09-2024 End: 07-07-2024 take 1 puff(s) by mouth twice daily fluticasone-salmeterol (ADVAIR, WIXELA) 250-50 mcg/dose inhaler Indications: Pulmonary emphysema, unspecified emphysema type (HCC) INHALE 1 PUFF INSTRUCTED TWO TIMES A DAY. RINSE AND GARGLE MOUTH WITH WATER AFTER EACH USE. 60 Each 5 01/09/2024 07/07/2024 Active Start: 07-08-2023 End: 01-04-2024 take 1 puff(s) by mouth twice daily fluticasone-salmeterol (ADVAIR DISKUS) 250-50 mcg/dose inhaler Indications: Pulmonary emphysema, unspecified emphysema type (HCC) Inhale 1 Puff as instructed two times a day. RINSE AND GARGLE MOUTH WITH WATER AFTER EACH USE. 1 Each 5 07/08/2023 01/04/2024 Active Fluticasone Furoate-Vilanterol (BREO ELLIPTA IN) (19 sources) Fluticasone Furoate-Vilanterol (BREO ELLIPTA IN) Inhale into the lungs daily 0 Active folic acid 1 mg oral tablet (9 sources) Start: 08-07-2024 End: 08-09-2025 take 1 tablet by mouth once daily folic acid (Folvite) 1 MG tablet Take 1 tablet (1 mg) by mouth daily. 08/09/2024 08/09/2025 Active 12 hr guaiFENesin 600 mg extended release oral tablet (5 sources) Start: 08-20-2024 take 2 tablets by mouth twice daily as needed for cough guaiFENesin (Mucinex) 600 MG 12 hr tablet Indications: Chronic obstructive pulmonary disease with acute lower respiratory infection (HCC) Take 2 tablets (1,200 mg) by mouth 2 times daily as needed for cough or congestion for up to 28 doses. Do not crush, chew, or split. 56 tablet 08/20/2024 Active Start: 08-03-2019 guaiFENesin (M UCINEX) extended release tablet 600 mg 3 ml heparin sodium, porcine 100 unt/ml prefilled syringe (11 sources) Unfractionated Heparin, Anti-coagulant Start: 10-14-2021 End: 10-15-2021 heparin flush 100 UNIT/ML injection 500 Units Start: 09-24-2020 End: 09-25-2020 heparin flush 100 UNIT/ML in jection 500 Units Start: 06-09-2020 End: 06-10-2020 heparin flush 100 UNIT/ML in jection 500 Units Start: 02-21-2020 End: 02-22-2020 heparin flush 100 UNIT/ML in jection 500 Units Start: 02-07-2020 End: 02-09-2020 heparin flush 100 UNIT/ML in jection 500 Units Start: 01-31-2020 End: 02-02-2020 heparin flush 100 UNIT/ML in jection 500 Units Start: 01-24-2020 End: 01-26-2020 heparin flush 100 UNIT/ML in jection 500 Units Start: 01-17-2020 End: 01-18-2020 heparin flush 100 UNIT/ML in jection 500 Units hydrOXYzine hydrochloride 10 mg oral tablet (1 source) Antihistamine Start: 11-23-2019 hydrOXYzine (A TARAX) tablet 10 mg 4 ml labetalol hydrochloride 5 mg/ml cartridge (1 source) beta-Adrenergic Brigid Start: 11-21-2019 10 mg, Intravenous, EVERY 10 MIN PRN, High Blood Pressure, Starting Tue11/21/19 at 2147 Administer 10 mg IV every 10 min if SBP is 210 mmHg or greater OR DBP is 120 mmHg or greater as long as HR is greater than 65bp m until goal BP has been achieved and to a max of 30 mg Notify provider if SBP is 210 mmHg or greater OR DBP is 120 mmHg or greater after 3 consecutive doses. If HR is less than 65 call MD for further orders lidocaine 25 mg/ml / prilocaine 25 mg/ml topical cream (14 sources) Antiarrhythmic, Amide Local Anesthetic Start: 12-13-2019 lidocaine-prilocaine (EMLA) 2.5-2.5 % cream Apply dime size amount to port 1 hour prior to access 1 Tube 3 12/13/2019 Active Magnesium Oxide (20 sources) magnesium oxide (Mag-Ox) 400 mg tablet 400 mg daily. Active magnesium oxide (Mag-Ox) 400 mg tablet 400 mg daily. 0 Active melatonin 3 mg oral tablet (20 sources) Start: 09-20-2023 End: 08-08-2024 take 1 tablet by mouth once daily melatonin 3 MG tablet Take 1 tablet (3 mg) by mouth Nightly. 09/22/2023 Active Start: 05-21-2022 End: 05-24-2022 take 6 mg by mouth once daily as needed for sleep 6 mg, Oral, Nightly PRN, sleep, Starting on Tue05/21/22 at 0525 mirtazapine 30 mg oral tablet (20 sources) Start: 06-07-2024 End: 12-04-2024 take 1 tablet by mouth once daily at bedtime mirtazapine (REMERON) 30 mg tablet Indications: Moderate episode of recurrent major depressive disorder (HCC) Take 1 tablet by mouth daily at bedtime. 90 tablet 1 06/07/2024 12/04/2024 Active Start: 06-10-2023 End: 08-08-2024 take 1 tablet by mouth once daily mirtazapine (Remeron) 15 MG tablet Take 1 tablet (15 mg) by mouth Nightly. 30 tablet 09/22/2023 Active Start: 05-20-2023 End: 08-18-2023 take 1 tablet by mouth once daily at bedtime Mirtazapine (REMERON) 7.5 mg tablet Indications: Moderate episode of recurrent major depressive disorder (HCC) Take 1 tablet by mouth daily at bedtime. 30 tablet 2 05/20/2023 06/10/2023 Discontinued Comment on above: Take 1 tablet by shanna th daily at bedtime. montelukast 10 mg oral tablet (20 sources) Leukotriene Receptor Antagonist Start: End: take 1 tablet by mouth once daily at bedtime montelukast (SINGULAIR) 10 mg tablet Take 10 mg by mouth daily at bedtime. 2022 Active Start: 08-02-2019 End: 11-08-2022 take 10 mg by mouth once daily 10 mg, Oral, Nightly, F irst dose on Tue05/21/22 at 2100 Comment on above: Take 10 mg by mouth daily at bedtime. morphine sulfate 15 mg oral tablet (19 sources) Opioid Agonist Start: 08-08-2024 End: 08-20-2024 take 1 tablet by mouth every six hours as needed for pain morphine (MSIR) 15 MG tablet Indications: Severe malnutrition (CMS/HCC) (HCC) , Pulmonary emphysema, unspecified emphysema type (HCC) Take 1 tablet (15 mg) by mouth every 6 hours as needed for severe pain (7-10) (shortness of breath) for up to 5 days. 20 tablet 08/08/2024 08/20/2024 Active Start: 08-01-2024 End: 08-08-2024 take 1 tablet by mouth every four hours as needed for pain morphine (MSIR) 15 MG tablet Indications: Severe malnutrition (CMS/HCC) (HCC) , Pulmonary emphysema, unspecified emphysema type (HCC) Take 1 tablet (15 mg) by mouth every 4 hours as needed for severe pain (7-10) (shortness of breath) for up to 5 days. 20 tablet 08/03/2024 08/08/2024 Discontinued Start: 07-31-2024 End: 08-01-2024 take 1 tablet by mouth every four hours as needed for pain 7.5 mg, Oral, Every 4 hours PRN, severe pain (7-10), shortness of breath, Starting on Tue07/31/24 at 1533 Start: 11-06-2022 End: 11-07-2022 take 2 mg intravenously every four hours as needed for pain morphine injection 2 mg Start: 05-21-2022 End: 05-21-2022 take 2 mg intravenously every four hours as needed for pain 2 mg, IntraVENous, Every 4 hours PRN, moderate pain (4-6), Starting on Tue05/21/22 at 0525 If oral and IV narcotics ordered, use oral first and only use IV if oral is ineffective or cannot take oral. Do Not give oral and IV within 1 hour of each other unless specifically ordered. Start: 05-21-2022 End: 05-21-2022 morphine injection 2 mg Start: 10-27-2019 End: 10-27-2019 morphine (PF) 4 MG/ML inject ion Start: 10-27-2019 End: 10-27-2019 morphine injection 4 mg Nebulizers (20 sources) Start: 06-22-2022 Nebulizers Ind ications: Chronic respiratory failure with hypoxia (HCC) , Panlobular emphysema (HCC) Use as directed. 1 Each 06/22/2022 Active Start: 06-22-2022 Nebulizers Ind ications: Chronic respiratory failure with hypoxia (HCC) , Panlobular emphysema (HCC) Use as directed. 1 Each 0 06/22/2022 Active Start: 06-22-2022 End: 06-22-2022 Nebulizers Indications: Perioperative Educator kyrie respiratory failure with hypoxia (HCC) , Panlobular emphysema (HCC) Use as directed. 1 Each 0 06/22/2022 06/22/2022 Discontinued Comment on above: Use as directed. OLANZapine 5 mg oral tablet (4 sources) Atypical Antipsychotic Start: take 1 tablet by mouth once daily OLANZapine (ZYPREXA) 5 MG tablet Indications: Chemotherapy induced nausea and vomiting Take 1 tablet by mouth nightly 30 tablet 0 02/21/2020 Active ondansetron 8 mg oral tablet (14 sources) Serotonin-3 Receptor Antagonist Start: take 1 tablet by mouth every eight hours as needed for nausea ondansetron (ZOFRAN) 8 MG tablet Indications: Malignant neoplasm of exocervix (HCC) Take 1 tablet by mouth every 8 hours as needed for Nausea or Vomiting 35 tablet 4 01/03/2020 Active Start: 11-21-2019 4 mg, Intraven ous, EVERY 6 HOURS PRN, Nausea, Vomiting, Starting Tue11/21/19 at 2147 Start: 10-27-2019 End: 10-27-2019 ondansetron (ZOFRAN) injecti on 4 mg Start: 10-21-2019 End: 10-21-2019 ondansetron (ZOFRAN-ODT) dis integrating tablet 4 mg OXYGEN, HOME THERAPY, (8 sources) Start: 09-15-2020 End: 09-15-2021 OXYGEN, HOME THERAPY, Indications: Chronic respiratory failure with hypoxia (HCC) , Panlobular emphysema (HCC) 3 L/min by Nasal Cannula route continuous. 0 09/15/2020 09/15/2021 Active Comment on above: 3 L/min by Nasal Can nula route continuous. PARoxetine hydrochloride 30 mg oral tablet (20 sources) Serotonin Reuptake Inhibitor Start: 08-09-2024 End: 08-09-2025 take 1 tablet by mouth once daily in the morning PARoxetine (Paxil) 30 MG tablet Take 1 tablet (30 mg) by mouth every morning. 30 tablet 11 08/09/2024 08/09/2025 Active Start: 08-02-2024 End: 08-08-2024 take 30 mg by mouth once daily in the morning 30 mg, Oral, Every morning, First dose (after last modification) on Tue08/02/24 at 0900 Start: 09-22-2023 End: 08-08-2024 take 20 mg by mouth once daily in the morning 20 mg, Oral, Every morning, First dose on Tue07/31/24 at 0900 Start: 09-21-2023 End: 09-22-2023 take 30 mg by mouth once daily 30 mg, Oral, Daily, Fir st dose (after last modification) on Tue09/21/23 at 0900 Start: 04-07-2023 End: 04-06-2024 take 1 tablet by mouth once daily PARoxetine (PAXIL) 40 mg tablet Indications: Moderate episode of recurrent major depressive disorder (HCC) , PAUL (generalized anxiety disorder) TAKE 1 TABLET BY MOUTH EVERY DAY 90 tablet 3 04/06/2024 Active Comment on above: Take 1 tablet by shanna th once daily. Take 1/2 tablet at bedtime for 2 weeks, then increase to full tablet QHS. perflutren lipid microspheres (DEFINITY) injection 1.65 mg (1 source) Start: 11-22-2019 End: 11-25-2019 perflutren lipid microspheres (DEFINITY) injection 1.65 mg predniSONE 20 mg oral tablet (20 sources) Start: 05-02-2024 predniSONE (DELTASONE) 20 mg tablet Indications: Panlobular emphysema (HCC) 2 tabs daily x 4 days, then 1 tab daily x 4 days, then 1/2 tab daily x 4 days 14 tablet 05/02/2024 Active Start: 12-30-2023 End: 05-02-2024 predniSONE (DELTASONE) 20 mg tablet Indications: Panlobular emphysema (HCC) Take 2.5 tabs for 2 days, then decrease by 0.5 tab every 2 days until gone 15 tablet 12/30/2023 05/02/2024 Discontinued Start: 09-08-2023 End: 09-22-2023 take 4 tablets by mouth once daily, then take 3 tablets by mouth once daily, then take 2 tablets by mouth once daily, then take 1 tablet by mouth once daily, then take 0.5 tablet by mouth once daily predniSONE (DELTASONE) 10 mg tablet Indications: Herpes zoster without complication Take 4 tablets daily by mouth for 3 days, then take 3 tablets daily for 3 days, then take 2 tablets daily for 3 days, then 1 tablet daily for 3 days then one-half tablet daily for 2 days 31 tablet 0 09/08/2023 09/22/2023 Active Start: 08-07-2023 End: 08-07-2023 predniSONE (Deltasone) table t 40 mg Start: 08-07-2023 End: 08-12-2023 take 4 tablets by mouth once daily predniSONE (Deltasone) 10 MG tablet Take 4 tablets (40 mg) by mouth daily for 5 days. 20 tablet 0 08/07/2023 08/12/2023 Active Start: 05-20-2023 End: 06-10-2023 predniSONE (DELTASONE) 20 mg tablet Indications: Panlobular emphysema (HCC) 2 tabs daily x 3 days, then 1 tab daily x 3 days, then 1/2 tab daily x 4 days 11 tablet 0 05/20/2023 06/10/2023 Discontinued Start: 09-15-2022 End: 09-24-2022 predniSONE (DELTASONE) 10 mg tablet Take 4 tabs daily for 3 days, then 2 tabs daily for 3 days, then 1 tab daily for 3 days with food. 21 tablet 0 09/15/2022 09/24/2022 Active Start: 07-03-2021 End: 08-06-2021 predniSONE (DELTASONE) 20 mg tablet Indications: Panlobular emphysema (HCC) 2 tabs daily x 3 days, then 1 tab daily x 3 days, then 1/2 tab daily x 4 days 11 tablet 0 08/06/2021 Active Start: 05-06-2021 End: 07-01-2021 predniSONE (DELTASONE) 20 mg tablet Indications: COPD (chronic obstructive pulmonary disease) with acute bronchitis (HCC) 2 tabs daily x 3 days, then 1 tab daily x 3 days, then 1/2 tab daily x 4 days 12 tablet 0 05/06/2021 07/01/2021 Discontinued Start: 03-16-2020 End: 03-26-2020 take 4 tablets by mouth once daily predniSONE (DELTASONE) 10 MG tablet Take 4 tablets by mouth once daily for 5 days 20 tablet 0 03/16/2020 03/26/2020 Active Start: 01-30-2020 End: 03-16-2020 predniSONE (DELTASONE) 20 MG tablet Start: 08-04-2019 End: 08-09-2019 take 2 tablets by mouth once daily predniSONE (DELTASONE) 20 MG tablet Take 2 tablets by mouth daily for 5 days 10 tablet 0 08/04/2019 08/09/2019 Active Start: 08-04-2019 predniSONE (DE LTASONE) tablet 40 mg Comment on above: 2 tabs daily x 3 day s, then 1 tab daily x 3 days, then 1/2 tab daily x 4 days Take 4 tabs daily fo r 3 days, then 2 tabs daily for 3 days, then 1 tab daily for 3 days with food. prochlorperazine 10 mg oral tablet (19 sources) Phenothiazine Start: 2019 take 1 tablet by mouth every six hours as needed for nausea and vomiting prochlorperazine (COMPAZINE) 10 MG tablet Indications: Malignant neoplasm of exocervix (HCC) Take 1 tablet by mouth every 6 hours as needed (nausea and vomiting) 120 tablet 3 01/03/2020 Active QUEtiapine 100 mg oral tablet (20 sources) Atypical Antipsychotic Start: 2024 End: 2024 take 1 tablet by mouth once daily as needed for anxiety and sleep QUEtiapine (SEROquel) 50 MG tablet Take 1 tablet (50 mg) by mouth Nightly as needed (Anxiety and Sleep). 08/08/2024 Active Start: 07-31-2024 End: 08-08-2024 take 50 mg by mouth once daily as needed for anxiety and sleep 50 mg, Oral, Nightly PRN, agitation, Anxiety and Sleep, Starting on Tue07/31/24 at 1007 Start: 03-12-2024 End: 09-11-2024 take 2 tablets by mouth every twenty-four hours as needed QUEtiapine (SEROQUEL) 100 mg tablet TAKE 2 TABLETS BY MOUTH AT BEDTIME NEEDED 180 tablet 1 09/11/2024 Active Start: 09-21-2023 End: 09-22-2023 take 50 mg by mouth once daily as needed 50 mg, Oral, Nightly PRN, insomnia, Starting on Tue09/21/23 at 1630 Start: 09-20-2023 End: 09-21-2023 take 100 mg by mouth once daily 100 mg, Oral, Nightly, First dose on Tue09/20/23 at 0000 Start: 11-06-2022 End: 08-08-2024 take 200 mg by mouth once daily 200 mg, Oral, Nightly, First dose on Tue02/14/23 at 2100, Indications: Generalized Anxiety Disorder, Major Depressive Disorder Start: 09-15-2022 End: 03-10-2024 take 2 tablets by mouth every twenty-four hours as needed QUEtiapine (SEROQUEL) 100 mg tablet take 2 tablets by mouth at bedtime as needed 180 tablet 1 09/14/2023 03/10/2024 Discontinued Start: 03-05-2022 End: 09-15-2022 take 1.5 tablets by mouth at bedtime as needed QUEtiapine (SEROQUEL) 100 mg tablet Take 1.5 tablets by mouth at bedtime as needed. 135 tablet 1 03/05/2022 09/15/2022 Discontinued Start: 05-06-2021 End: 03-05-2022 take 1 tablet by mouth every twenty-four hours as needed QUEtiapine (SEROQUEL) 100 mg tablet Take 1 tablet by mouth at bedtime as needed. 90 tablet 1 10/28/2021 03/05/2022 Discontinued Comment on above: Take 1 tablet by shanna at bedtime as needed. Take 1.5 tablets by mouth at bedtime as needed. Take 2 tablets by mo uth at bedtime as needed. TAKE 2 TABLETS BY MO UTH AT BEDTIME NEEDED sodium chloride flush 0.9 % injection 3 mL (1 source) Start: 10-27-2019 sodium chloride flush 0.9 % injection 3 mL traZODone hydrochloride 100 mg oral tablet (20 sources) Serotonin Reuptake Inhibitor Start: 11-21-2019 take 100 mg by mouth once daily as needed for sleep 100 mg, Oral, NIGHTLY PRN, Sleep, Starting Tue11/21/19 at 2150 Start: 01-09-2017 End: 01-18-2020 traZODone (DESYREL) 50 MG ta blet Take 50-100 mg by mouth nightly as needed 0 01/09/2017 01/18/2020 Discontinued valACYclovir 1000 mg oral tablet (3 sources) Herpesvirus Nucleoside Analog DNA Polymerase Inhibitor, Herpes Simplex Virus Nucleoside Analog DNA Polymerase Inhibitor, Herpes Zoster Virus Nucleoside Analog DNA Polymerase Inhibitor Start: 09-08-2023 End: 09-15-2023 take 1 tablet by mouth three times daily valACYclovir (VALTREX) 1 gram tablet Indications: Herpes zoster without complication Take 1 tablet by mouth three times a day for 7 days. 21 tablet 0 09/08/2023 09/15/2023 Active Zinc (20 sources) Zinc 50 MG capsu le Take 50 mg by mouth. Active Zinc 50 MG capsu le Take 50 mg by mouth. 0 Active Completed/Discontinued Medications Medication Drug Class(es) Dates Sig (Normalized) Sig (Original) acetaminophen 325 mg oral tablet (20 sources) Start: 07-31-2024 End: 08-08-2024 650 mg, Oral, 2 times daily, First dose on Tue07/31/24 at 1030, Maximum dose of acetaminophen is 4000 mg from all sources in 24 hours. Start: 07-30-2024 End: 08-08-2024 take 1 tablet by mouth every six hours as needed for pain and fever acetaminophen (Tylenol) tablet 650 mg Start: 09-22-2023 End: 10-02-2023 take 2 tablets by mouth three times daily acetaminophen (Tylenol) 325 MG tablet Take 2 tablets (650 mg) by mouth 3 times daily for 10 days. 09/22/2023 10/02/2023 Active Start: 09-20-2023 End: 09-22-2023 650 mg, Oral, 3 times daily, First dose on Tue09/20/23 at 2100, Maximum dose of acetaminophen is 4000 mg from all sources in 24 hours. Start: 09-20-2023 End: 09-22-2023 take 1 tablet by mouth every six hours as needed for pain and fever acetaminophen (Tylenol) tablet 650 mg Start: 09-19-2023 End: 09-19-2023 1,000 mg, Oral, Once, On Tue09/19/23 at 1820, For 1 dose, Maximum dose of acetaminophen is 4000 mg from all sources in 24 hours. Start: 02-14-2023 End: 02-18-2023 take 1 tablet by mouth every six hours as needed for pain and fever acetaminophen (Tylenol) tablet 650 mg Start: 02-13-2023 End: 02-13-2023 acetaminophen (Tylenol) tabl et 1,000 mg Start: 11-06-2022 End: 11-08-2022 take 1 tablet by mouth every six hours as needed for pain and fever acetaminophen (Tylenol) tablet 650 mg Start: 11-06-2022 End: 11-06-2022 acetaminophen (Tylenol) tabl et 1,000 mg Start: 05-23-2022 End: 06-02-2022 take 2 tablets by mouth every six hours as needed for pain and fever acetaminophen (Tylenol) 325 MG tablet Take 2 tablets (650 mg) by mouth every 6 hours as needed for mild pain (1-3) or fever (For temp greater than 100.4 F (38 C)) for up to 10 days. 30 tablet 0 05/23/2022 06/02/2022 Active Start: 05-21-2022 End: 05-24-2022 take 1 tablet by mouth every six hours as needed for pain and fever acetaminophen (Tylenol) tablet 650 mg Start: 11-21-2019 acetaminophen (TYLENOL) tablet 650 mg 30 actuat aclidinium bromide 0.4 mg/actuat dry powder inhaler (20 sources) End: 01-18-2020 take 1 puff(s) by inhalation twice daily aclidinium (TUDORZA PRESSAIR) 400 MCG/ACT AEPB inhaler Inhale 1 puff into the lungs 2 times daily 0 01/18/2020 Discontinued albuterol 0.833 mg/ml / ipratropium bromide 0.167 mg/ml inhalation solution (9 sources) Anticholinergi c, beta2-Adrenerg ic Agonist Start: 02-18-2023 End: 02-18-2023 ipratropium-albuter ol (Duo-Neb) 0.5-2.5 mg/3 mL nebulizer solution 3 mL Start: 02-16-2023 End: 02-18-2023 3 mL, Nebulization, 3 times daily, First dose on Tue02/16/23 at 2000, Indications: Asthma, COPD Start: 11-06-2022 End: 11-08-2022 ipratropium-albuterol (Duo-N eb) 0.5-2.5 mg/3 mL nebulizer solution 3 mL Start: 05-21-2022 End: 05-24-2022 3 mL, Nebulization, 3 times daily, First dose on Tue05/21/22 at 0800 Start: 03-16-2020 End: 03-16-2020 ipratropium-albuterol (DUONE B) nebulizer solution 1 ampule albuterol sulfate HFA 108 (90 Base) MCG/ACT inhaler 2 puff (2 sources) Start: 08-02-2019 End: 08-03-2019 take 2 puff(s) by inhalation every six hours as needed for wheezing 2 puff, Inhalation, EVERY 6 HOURS PRN, Wheezing, Starting [facility] 08/02/19 at 2106 Start: 08-02-2019 albuterol sulf ate HFA 108 (90 Base) MCG/ACT inhaler 2 puff alteplase (CATHFLO) injection 2 mg (1 source) Start: 02-07-2020 End: 02-07-2020 alteplase (CATHFLO) injection 2 mg azithromycin (ZITHROMAX) 500 mg in dextrose 5 % 250 mL IVPB (1 source) Start: 08-02-2019 End: 08-02-2019 azithromycin (ZITHROMAX) 500 mg in dextrose 5 % 250 mL IVPB azithromycin (Zithromax) 500 mg in sodium chloride 0.9 % 250 mL IVPB (ADD-Holden) (2 sources) Start: 08-07-2023 End: 08-07-2023 azithromycin (Zithromax) 500 mg in sodium chloride 0.9 % 250 mL IVPB (ADD-Holden) ceFAZolin 1000 mg injection (1 source) Cephalosporin Antibacterial Start: 12-19-2019 End: 12-19-2019 ceFAZolin (ANCEF) 1 g in dextrose 5 % 50 mL IVPB (premix) ceFAZolin (Ancef) 2,000 mg in sodium chloride 0.9 % 100 mL IVPB (2 sources) Start: 11-07-2022 End: 11-08-2022 take 2000 mg intravenously every eight hours 2,000 mg, IntraVENous, at 200 mL/hr, Administer over 30 Minutes, Every 8 hours, First dose on Tue11/07/22 at 1600, For 2 doses, Phase II/On Unit Patients < 120 k mg ~~~ Patients >/= 120 k mg Mini-Bag Plus bag Suspected Indication (Select all that apply): Surgical Prophylaxis cefepime (Maxipime) 2,000 mg in sodium chloride 0.9 % 50 mL IVPB Mini-Bag Plus (4 sources) Start: 08-06-2024 End: 08-08-2024 take 2000 mg intravenously every eight hours 2,000 mg, IntraVENous, at 12.5 mL/hr, Administer over 4 Hours, Every 8 hours, First dose (after last modification) on Tue08/06/24 at 0800, Mini-Bag Plus bag, Suspected Indication (Select all that apply): Pneumonia (HAP) Start: 08-01-2024 End: 08-06-2024 take 2000 mg intravenously every twelve hours 2,000 mg, IntraVENous, at 12.5 mL/hr, Administer over 4 Hours, Every 12 hours, First dose on Tue08/01/24 at 1900, Mini-Bag Plus bag, Suspected Indication (Select all that apply): Pneumonia (HAP) cefTRIAXone (Rocephin) 1 g in sodium chloride 0.9 % 50 mL IVPB Mini-Bag Plus (2 sources) Start: 08-07-2023 End: 08-07-2023 cefTRIAXone (Rocephin) 1 g in sodium chloride 0.9 % 50 mL IVPB Mini-Bag Plus cefTRIAXone (ROCEPHIN) 1 g IVPB in NS 50ml minibag (1 source) Start: 08-02-2019 End: 08-02-2019 cefTRIAXone (ROCEPHIN) 1 g IVPB in NS 50ml minibag cetirizine hydrochloride 10 mg oral tablet (2 sources) Histamine-1 Receptor Antagonist Start: 08-01-2024 End: 08-08-2024 take 5 mg by mouth once daily 5 mg, Oral, Daily, First dose on Tue08/01/24 at 1815 CISplatin (PLATINOL) 68 mg in sodium chloride 0.9 % 500 mL chemo IVPB (4 sources) Start: 02-22-2020 End: 02-22-2020 CISplatin (PLATINOL) 68 mg in sodium chloride 0.9 % 500 mL chemo IVPB Start: 02-08-2020 End: 02-08-2020 CISplatin (PLATINOL) 68 mg i n sodium chloride 0.9 % 500 mL chemo IVPB Start: 02-01-2020 End: 02-01-2020 CISplatin (PLATINOL) 68 mg i n sodium chloride 0.9 % 500 mL chemo IVPB Start: 01-25-2020 End: 01-25-2020 CISplatin (PLATINOL) 68 mg i n sodium chloride 0.9 % 500 mL chemo IVPB clonazePAM 0.5 mg oral tablet (20 sources) Benzodiazepine Start: 11-23-2019 End: 09-22-2023 take 0.5 mg by mouth once daily 0.5 mg, Oral, Nightly, First dose on Tue05/21/22 at 2100 Comment on above: take 1 tablet by shanna th every day at night dexamethasone (DECADRON) 12 mg in sodium chloride 0.9 % IVPB (4 sources) Start: 02-22-2020 End: 02-22-2020 dexamethasone (DECADRON) 12 mg in sodium chloride 0.9 % IVPB Start: 02-08-2020 End: 02-08-2020 dexamethasone (DECADRON) 12 mg in sodium chloride 0.9 % IVPB Start: 02-01-2020 End: 02-01-2020 dexamethasone (DECADRON) 12 mg in sodium chloride 0.9 % IVPB Start: 01-25-2020 End: 01-25-2020 dexamethasone (DECADRON) 12 mg in sodium chloride 0.9 % IVPB diatrizoate meglumine-sodium (Gastrografin) 66-10 % solution 30 mL (2 sources) Start: 07-31-2024 End: 07-31-2024 30 mL, Oral, Once, On Tue07/31/24 at 1130, For 1 dose, 1. INPATIENTS 30ML GASTROGRAFIN MIXED IN 32OZ OF WATER-DRINK HALF 2 HRS BEFORE AND THE HALF 1HR BEFORE EXAM. 2. EMERGENCY PATIENTS 30ML GASTROGRAFIN MIXED IN 32OZ OF WATER AND WAIT 1 HOUR THEN SCAN. diclofenac sodium 0.01 mg/mg topical gel (20 sources) Nonsteroidal Anti-inflammatory Drug Start: 06-27-2023 End: 06-06-2024 diclofenac (VOLTAREN ARTHRITIS PAIN) 1 % topical gel Indications: Compression fracture of body of thoracic vertebra (HCC) , Other closed nondisplaced fracture of proximal end of right humerus with routine healing, subsequent encounter Apply 2 g to affected area four times daily. 200 g 5 06/27/2023 06/06/2024 Discontinued Start: 02-18-2023 End: 06-06-2024 Diclofenac Sodium (Voltaren) 1 % gel Apply 4 g topically 2 times daily. 02/18/2023 Active Start: 02-17-2023 End: 02-18-2023 Diclofenac Sodium (Voltaren) 1 % gel 4 g Start: 01-14-2023 End: 06-25-2023 diclofenac (VOLTAREN ARTHRIT IS PAIN) 1 % topical gel Indications: Compression fracture of body of thoracic vertebra (HCC) , Other closed nondisplaced fracture of proximal end of right humerus with routine healing, subsequent encounter Apply 2 g to affected area four times daily. 200 g 5 03/08/2023 06/25/2023 Discontinued Comment on above: Apply 2 g to affecte d area four times daily. Apply 4 g to affecte d area. diphenhydrAMINE hydrochloride 25 mg oral tablet (20 sources) Histamine-1 Receptor Antagonist End: diphenhydrAMINE (Sominex) 25 MG tablet Take 25 mg by mouth. 0 02/18/2023 Discontinued (Stop taking at discharge) doxylamine succinate 25 mg oral tablet (2 sources) Start: End: take 25 mg by mouth once daily as needed for sleep 25 mg, Oral, Nightly PRN, sleep, Starting on 11/07/22 at 0940 DULoxetine 60 mg delayed release oral capsule (20 sources) Serotonin and Norepinephrine Reuptake Inhibitor Start: End: take 1 capsule by mouth once daily DULoxetine (CYMBALTA) 30 mg capsule Indications: Moderate episode of recurrent major depressive disorder (HCC) , PAUL (generalized anxiety disorder) Take 1 capsule by mouth once daily. 14 capsule 0 03/11/2023 05/02/2023 Discontinued Start: 01-14-2023 End: 02-19-2024 take 60 mg by mouth once daily 60 mg, Oral, Daily, Fir st dose on Tue09/20/23 at 0900, Do not crush or chew. Start: 01-14-2023 End: 01-28-2023 take 1 capsule by mouth once daily DULoxetine (CYMBALTA) 30 mg capsule Indications: Moderate episode of recurrent major depressive disorder (HCC) Take 1 capsule by mouth once daily for 14 days. 14 capsule 0 01/14/2023 Active Comment on above: Take 1 capsule by [facility] once daily for 14 days. Take 1 capsule by [facility] once daily. 0.3 ml enoxaparin sodium 100 mg/ml prefilled syringe (14 sources) Low Molecular Weight Heparin Start: 08-01-19 End: 08-09-19 inject 30 mg by subcutaneous injection every twenty-four hours 30 mg, SubCUTAneous, Every 24 hours scheduled (Daily), First dose on Tue07/31/24 at 0900, Indication of Use: Prophylaxis-DVT/PE, Indications: Prophylaxis of Venous Thromboembolism Start: 09-20-2023 End: 09-22-2023 inject 40 mg by subcutaneous injection every twenty-four hours 40 mg, SubCUTAneous, Every 24 hours scheduled (Daily), First dose on Tue09/20/23 at 0900, Indication of Use: Prophylaxis-DVT/PE, Indications: Prophylaxis of Venous Thromboembolism Start: 02-14-2023 End: 02-18-2023 enoxaparin (Lovenox) syringe 40 mg Start: 11-09-2022 End: 12-09-2022 inject 0.4 mL by subcutaneous injection every twenty-four hours enoxaparin (Lovenox) 40 MG/0.4ML solution prefilled syringe Indications: Prophylaxis of Venous Thromboembolism Inject 0.4 mL (40 mg) under the skin every 24 hours. Do not start before November 09, 2022. 30 each 0 11/09/2022 12/09/2022 Active Start: 11-08-2022 End: 11-08-2022 inject 40 mg by subcutaneous injection every twenty-four hours 40 mg, SubCUTAneous, Every 24 hours scheduled (Daily), First dose on Tue11/08/22 at 0900, Phase II/On Unit Indication of Use: Prophylaxis-DVT/PE Indications: Prophylaxis of Venous Thromboembolism Start: 05-23-2022 End: 05-24-2022 enoxaparin (Lovenox) syringe 40 mg Start: 11-22-2019 inject 40 mg by subc utaneous injection once daily 40 mg, Subcutaneous, DAILY, First dose on Tue11/22/19 at 0900 Start: 11-09-2019 End: 11-09-2019 enoxaparin (LOVENOX) injecti on 100 mg EPINEPHrine / Lidocaine (3 sources) Antiarrhythmic, alpha-Adrenergic Agonist, beta-Adrenergic Agonist, Catecholamine, Amide Local Anesthetic Start: 05-21-2022 End: 05-21-2022 lidocaine-EPINEPHrine (Xylocaine W/EPI) 1 %-1:163910 injection 10 mL Start: 12-19-2019 End: 12-19-2019 lidocaine-EPINEPHrine 2 perc ent-1:819800 injection 2 ml fentaNYL 0.05 mg/ml injection (3 sources) Opioid Agonist Start: 12-19-2019 End: 12-19-2019 fentaNYL (SUBLIMAZE) injection fluticasone propionate 0.05 mg/actuat metered dose nasal spray (20 sources) Corticosteroid Start: 07-31-2024 End: 08-08-2024 2 spray, Each Nostril, Daily, First dose on Tue07/31/24 at 0900, Shake gently. Before first use, prime pump (press 6 times until fine spray appears). After use, clean tip and replace cap. Start: 11-08-2022 End: 11-08-2023 take 2 spray(s) nasal route once daily fluticasone (FLONASE) 50 mcg/actuation nasal spray spray 2 sprays into each nostril every day 48 mL 3 11/02/2023 Active Start: 05-21-2022 End: 05-24-2022 2 spray, Each Nostril, Daily , First dose on Tue05/21/22 at 0900 Shake gently. Before first use, prime pump (press 6 times until fine spray appears). After use, clean tip and replace cap. Start: 08-06-2021 End: 08-06-2022 fluticasone (Flonase) 50 MCG /ACT nasal spray 2 sprays in the morning. 08/06/2021 Active Start: 11-22-2019 2 spray, Nasal , 2 TIMES DAILY, First dose on Tue11/22/19 at 2100 Start: 12-29-2015 End: 08-06-2022 take 2 spray(s) nasal route once daily fluticasone (FLONASE) 50 mcg/actuation nasal spray Use 2 Sprays in each nostril once daily. 1 Each 08/06/2021 08/06/2022 Active fluticasone (AMBROCIO NASE) 50 MCG/ACT nasal spray Indications: as needed 2 sprays by Nasal route 2 times daily Indications: as needed 0 Active Comment on above: Use 2 Sprays in each nostril once daily. 30 actuat fluticasone furoate 0.2 mg/actuat / vilanterol 0.025 mg/actuat dry powder inhaler (20 sources) Corticosteroid, beta2-Adrenergic Agonist Start: 11-08-2022 End: 12-26-2023 fluticasone-vilanterol (BREO ELLIPTA) 200-25 mcg/dose inhaler Indications: Pulmonary emphysema, unspecified emphysema type (HCC) Inhale 1 Inhalation as instructed once daily. 60 Each 5 06/29/2023 07/08/2023 Discontinued Start: 11-20-2021 End: 06-07-2022 fluticasone-vilanterol (BREO ELLIPTA) 200-25 mcg/dose inhaler Indications: Pulmonary emphysema, unspecified emphysema type (HCC) Inhale 1 Inhalation as instructed once daily. 60 Each 12/09/2021 Active Start: 05-06-2021 End: 11-02-2021 fluticasone-vilanterol (BREO ELLIPTA) 200-25 mcg/dose inhaler Indications: Pulmonary emphysema, unspecified emphysema type (HCC) Inhale 1 Inhalation as instructed once daily. 60 Each 05/06/2021 11/02/2021 Active take 1 puff(s) by in halation once daily Fluticasone Furoate-Vilanterol (Breo Ellipta) 200-25 MCG/ACT aerosol powder Indications: Asthma , COPD Inhale 1 puff daily. Active Comment on above: Inhale 1 Inhalation as instructed once daily. folic acid 1 mg in dextrose 5 % 50 mL IVPB (2 sources) Start: 08-06-2024 End: 08-06-2024 1 mg, IntraVENous, at 100 mL/hr, Administer over 30 Minutes, Once, On Tue08/06/24 at 1500, For 1 dose 60 actuat formoterol fumarate 0.005 mg/actuat / mometasone furoate 0.2 mg/actuat metered dose inhaler (20 sources) Corticosteroid, beta2-Adrenergic Agonist Start: 07-30-2024 End: 08-08-2024 take 2 puff(s) by mouth twice daily 2 puff, Inhalation, 2 times daily, First dose on Tue07/30/24 at 2310, Rinse mouth with water after use to reduce aftertaste and incidence of candidiasis. Do not swallow. Start: 01-11-2024 End: 04-24-2024 take 2 puff(s) by inhalation twice daily mometasone-formoterol (DULERA) 200-5 mcg/actuation inhaler Inhale 2 Puffs as instructed two times a day. 13 g 1 01/11/2024 04/24/2024 Discontinued (Cost of medication) Start: 09-20-2023 End: 09-22-2023 take 2 puff(s) by mouth twice daily 2 puff, Inhalation, 2 times daily, First dose on Tue09/20/23 at 0000, Rinse mouth with water after use to reduce aftertaste and incidence of candidiasis. Do not swallow. Start: 11-22-2019 take 2 puff(s) by in halation twice daily 2 puff, Inhalation, 2 TIMES DAILY, First dose on [place] 11/22/19 at 2000 Rinse mouth out with water (without swallowing) after every dose. Start: 08-04-2019 take 2 puff(s) by in halation twice daily 2 puff, Inhalation, 2 TIMES DAILY, First dose on 08/04/19 at 0800 Rinse mouth out with water (without swallowing) after every dose. Start: 10-20-2016 End: 01-18-2020 take 2 puff(s) by inhalation twice daily DULERA 200-5 MCG/ACT inhaler INHALE 2 PUFF(S) 2 TIMES A DAY INHALED 30 DAY(S) 10/20/2016 01/18/2020 Discontinued (LIST CLEANUP) fosaprepitant (EMEND) 150 mg in sodium chloride 0.9 % 150 mL IVPB (4 sources) Start: 02-22-2020 End: 02-22-2020 fosaprepitant (EMEND) 150 mg in sodium chloride 0.9 % 150 mL IVPB Start: 02-08-2020 End: 02-08-2020 fosaprepitant (EMEND) 150 mg in sodium chloride 0.9 % 150 mL IVPB Start: 02-01-2020 End: 02-01-2020 fosaprepitant (EMEND) 150 mg in sodium chloride 0.9 % 150 mL IVPB Start: 01-25-2020 End: 01-25-2020 fosaprepitant (EMEND) 150 mg in sodium chloride 0.9 % 150 mL IVPB gabapentin 300 mg oral capsule (20 sources) Anti-epileptic Agent Start: 09-20-2023 End: 09-20-2023 take 600 mg by mouth once daily 600 mg, Oral, Nightly, First dose on Tue09/20/23 at 0000 Start: 02-08-2020 End: 07-30-2024 take 1 tablet by mouth once daily gabapentin (Neurontin) 600 MG tablet Take 1 tablet by mouth daily. 02/08/2020 07/30/2024 Discontinued (Therapy completed) Start: 08-02-2019 take 100 mg by mouth twice daily 100 mg, Oral, 2 TIMES DAILY, First dose on [facility] 08/02/19 at 2130 Comment on above: Take 600 mg by mouth daily at bedtime. 1 ml HYDROmorphone hydrochloride 1 mg/ml cartridge (3 sources) Opioid Agonist Start: 05-21-2022 End: 05-21-2022 HYDROmorphone (Dilaudid) injection 1 mg Start: 10-21-2019 End: 10-21-2019 HYDROmorphone (DILAUDID) inj ection 1 mg HYDROmorphone (Dilaudid) injection 0.25 mg (2 sources) Start: 11-07-2022 End: 11-08-2022 HYDROmorphone (Dilaudid) injection 0.25 mg ibuprofen 400 mg oral tablet (8 sources) Nonsteroidal Anti-inflammatory Drug Start: 05-23-2022 End: 05-23-2022 ibuprofen tablet 400 mg Start: 11-07-2019 End: 11-24-2019 take 1 tablet by mouth every six hours as needed for pain ibuprofen (ADVIL;MOTRIN) 600 MG tablet Take 1 tablet by mouth every 6 hours as needed for Pain 60 tablet 0 11/07/2019 11/24/2019 Discontinued (Stop Taking at Discharge) Start: 02-12-2017 End: 10-21-2019 take 1 tablet by mouth every six hours as needed for pain ibuprofen (ADVIL;MOTRIN) 600 MG tablet Take 1 tablet by mouth every 6 hours as needed for Pain 20 tablet 0 02/12/2017 10/21/2019 Discontinued (LIST CLEANUP) iopamidol (ISOVUE-370) 76 % injection 50 mL (1 source) Start: 10-14-2021 End: 10-14-2021 iopamidol (ISOVUE-370) 76 % injection 50 mL iopamidol (ISOVUE-370) 76 % injection 75 mL (5 sources) Start: 12-26-2020 End: 12-26-2020 iopamidol (ISOVUE-370) 76 % injection 75 mL Start: 09-24-2020 End: 09-24-2020 iopamidol (ISOVUE-370) 76 % injection 75 mL Start: 06-06-2020 End: 06-06-2020 iopamidol (ISOVUE-370) 76 % injection 75 mL Start: 03-10-2020 End: 03-10-2020 iopamidol (ISOVUE-370) 76 % injection 75 mL Start: 10-27-2019 End: 10-27-2019 iopamidol (ISOVUE-370) 76 % injection 75 mL iopamidol (Isovue-370) 76 % injection 75 mL (4 sources) Start: 08-03-2024 End: 08-08-2024 take 75 mL intravenously once as needed 75 mL, IntraVENous, IMG once PRN, contrast, Starting on Tue08/03/24 at 0917, For 1 dose Start: 07-31-2024 End: 07-31-2024 take 75 mL intravenously once as needed 75 mL, IntraVENous, IMG once PRN, contrast, Starting on Tue07/31/24 at 1125, For 1 dose 1 ml ketorolac tromethamine 30 mg/ml cartridge (8 sources) Nonsteroidal Anti-inflammatory Drug, Cyclooxygenase Inhibitor Start: 04-28-2024 End: 04-28-2024 15 mg, IntraVENous, Once, On 04/28/24 at 0115, For 1 dose Start: 02-13-2023 End: 02-13-2023 ketorolac (Toradol) injectio n 10 mg Start: 10-21-2019 ketorolac (TOR ADOL) injection 30 mg Start: 10-21-2019 End: 10-20-2020 take 1 tablet by mouth every six hours as needed for pain ketorolac (TORADOL) 10 MG tablet Take 1 tablet by mouth every 6 hours as needed for Pain 20 tablet 0 10/21/2019 10/20/2020 Active lidocaine 0.04 mg/mg medicated patch (12 sources) Antiarrhythmic, Amide Local Anesthetic Start: 10-16-2023 End: 10-17-2023 1 patch, TransDERmal, Administer over 12 Hours, Once, On 10/16/23 at 1950, For 1 dose, Apply patch to back. Patch may remain in place for up to 12 hours in any 24 hour period. Start: 10-16-2023 End: 07-30-2024 apply 1 dose transdermal route once daily, then apply 1 dose transdermal route every twelve hours lidocaine (Lidoderm) 5 % patch Apply 1 patch topically daily. Remove & discard patch within 12 hours or as directed by 10 patch 10/16/2023 07/30/2024 Discontinued (Therapy completed) Start: 09-20-2023 End: 09-22-2023 Topical, PRN, mild pain (1-3 ), left sided abd and skin pain, Starting on Tue09/20/23 at 0009 Start: 12-19-2019 End: 12-19-2019 lidocaine PF 2 % injection LORazepam 0.5 mg oral tablet (1 source) Benzodiazepine Start: 11-22-2019 End: 11-22-2019 LORazepam (ATIVAN) tablet 0.5 mg Start: 11-22-2019 End: 11-22-2019 LORazepam (ATIVAN) tablet 0. 5 mg 50 ml magnesium sulfate 40 mg/ml injection (2 sources) Start: 09-19-2023 End: 09-19-2023 2,000 mg, IntraVENous, at 25 mL/hr, Administer over 2 Hours, Once, On Tue09/19/23 at 1740, For 1 dose, Recommended infusion rate not to exceed 1,000 mg (milligrams) per hour. methocarbamol 500 mg oral tablet (7 sources) Muscle Relaxant Start: 10-16-2023 End: 08-08-2024 take 2 tablets by mouth every eight hours as needed methocarbamol (Robaxin) 500 MG tablet Take 2 tablets (1,000 mg) by mouth every 8 hours as needed for muscle spasms for up to 10 days. 30 tablet 10/16/2023 08/08/2024 Discontinued (Stop taking at discharge) methylPREDNISolone 40 mg injection (5 sources) Corticosteroid Start: 07-31-2024 End: 08-02-2024 take 20 mg intravenously every twelve hours 20 mg, IntraVENous, Every 12 hours, First dose on Tue07/31/24 at 0600 Start: 03-16-2020 End: 03-16-2020 methylPREDNISolone sodium (S PRABHJOT-MEDROL) injection 125 mg Start: 08-03-2019 End: 08-04-2019 methylPREDNISolone sodium (S PRABHJOT-MEDROL) injection 40 mg Start: 08-02-2019 End: 08-02-2019 methylPREDNISolone sodium (S PRABHJOT-MEDROL) injection 125 mg 2 ml midazolam 1 mg/ml injection (3 sources) Benzodiazepine Start: 12-19-2019 End: 12-19-2019 midazolam (VERSED) injection 1 ml naloxone hydrochloride 0.4 mg/ml injection (14 sources) Opioid Antagonist Start: 07-30-2024 End: 08-08-2024 0.4 mg, IntraVENous, Every 5 min PRN, opioid reversal, respiratory depression, Starting on Tue07/30/24 at 2308, +++ For RR Start: 09-20-2023 End: 09-22-2023 0.4 mg, IntraVENous, Every 5 min PRN, opioid reversal, respiratory depression, Starting on Tue09/20/23 at 0753, +++ For RR Start: 02-17-2023 End: 02-18-2023 naloxone (Narcan) injection 0.4 mg Start: 05-21-2022 End: 05-24-2022 naloxone (Narcan) injection 0.4 mg Start: 09-15-2020 End: 08-06-2021 naloxone 4 mg/actuation nasa l spray (NARCAN) Indications: Chronic pain syndrome Use 1 spray in one nostril as needed for overdose. May repeat every 2 to 3 min in alternating nostrils until medical assistance is available 1 Box 0 09/15/2020 08/06/2021 Discontinued Comment on above: Use 1 spray in one n ostril as needed for overdose. May repeat every 2 to 3 min in alternating nostrils until medical assistance is available 24 hr nicotine 0.583 mg/hr transdermal system (20 sources) Cholinergic Nicotinic Agonist Start: 09-20-19 End: 09-22-19 apply 1 dose transdermal route once daily at bedtime 1 patch, TransDERmal, Administer over 24 Hours, Daily, First dose on Tue09/20/23 at 1200, Apply new patch to nonhairy, clean, dry skin on the upper body or upper outer arm. Rotate patch sites. Notify Pharmacy if patient or provider prefers patch to be removed at bedtime and replaced in the morning. Start: 11-09-2022 End: 08-08-2024 apply 1 dose transdermal route once daily nicotine (Nicoderm, Step 1) 21 MG/24HR patch Place 1 patch on the skin daily. Do not start before November 09, 2022. 30 patch 11/09/2022 08/08/2024 Discontinued (Stop taking at discharge) Start: 11-09-2022 End: 05-03-2023 apply 1 dose transdermal route every hour nicotine (NICODERM) 21 mg/24 hr Apply 1 Patch as directed. 0 11/09/2022 05/03/2023 Discontinued Start: 11-08-2022 End: 11-08-2022 nicotine (Nicoderm, Step 1) 21 MG/24HR patch 1 patch Comment on above: Apply 1 Patch as dir ected. ondansetron ODT (Zofran-ODT) disintegrating tablet 4 mg (10 sources) Start: 07-31-19 End: 08-09-19 take 1 tablet by mouth every eight hours as needed for nausea and vomiting ondansetron ODT (Zofran-ODT) disintegrating tablet 4 mg Start: 09-20-2023 End: 09-22-2023 take 1 tablet by mouth every eight hours as needed for nausea and vomiting ondansetron ODT (Zofran-ODT) disintegrating tablet 4 mg Start: 02-14-2023 End: 02-18-2023 take 1 tablet by mouth every eight hours as needed for nausea and vomiting ondansetron ODT (Zofran-ODT) disintegrating tablet 4 mg Start: 11-06-2022 End: 11-08-2022 take 1 tablet by mouth every eight hours as needed for nausea and vomiting ondansetron ODT (Zofran-ODT) disintegrating tablet 4 mg Start: 05-21-2022 End: 05-24-2022 take 1 tablet by mouth every eight hours as needed for nausea and vomiting ondansetron ODT (Zofran-ODT) disintegrating tablet 4 mg oxyCODONE hydrochloride 5 mg oral tablet (17 sources) Opioid Agonist Start: 07-30-2024 End: 07-31-2024 take 1 tablet by mouth every six hours as needed for pain and pain 5 mg, Oral, Every 6 hours PRN, moderate pain (4-6), severe pain (7-10), Starting on Tue07/30/24 at 2305 Start: 09-20-2023 End: 09-22-2023 take 1 tablet by mouth every six hours as needed for pain and pain 5 mg, Oral, Every 6 hours PRN, moderate pain (4-6), severe pain (7-10), Starting on Tue09/20/23 at 0749 Start: 09-19-2023 End: 09-19-2023 take 5 mg by mouth once 5 mg, Oral, Once, On 09/18 at 1925, For 1 dose Start: 02-13-2023 End: 02-13-2023 oxyCODONE (Roxicodone) immed iate release tablet 5 mg Start: 11-07-2022 End: 11-08-2022 take 1 tablet by mouth every four hours as needed for pain oxyCODONE (Roxicodone) immediate release tablet 5 mg Start: 11-06-2022 End: 11-06-2022 oxyCODONE (Roxicodone) immed iate release tablet 5 mg Start: 11-07-2019 End: 11-14-2019 take 1 tablet by mouth every six hours as needed for pain, then take 1 tablet by mouth as needed for pain oxyCODONE (ROXICODONE) 5 MG immediate release tablet Indications: S/P hysterectomy Take 1 tablet by mouth every 6 hours as needed for Pain for up to 7 days. Intended supply: 3 days. Take lowest dose possible to manage pain 25 tablet 0 11/07/2019 11/14/2019 Active palonosetron (ALOXI) injecti on 0.25 mg (4 sources) Start: 02-22-2020 End: 02-22-2020 palonosetron (ALOXI) injecti on 0.25 mg Start: 02-08-2020 End: 02-08-2020 palonosetron (ALOXI) injecti on 0.25 mg Start: 02-01-2020 End: 02-01-2020 palonosetron (ALOXI) injecti on 0.25 mg Start: 01-25-2020 End: 01-25-2020 palonosetron (ALOXI) injecti on 0.25 mg perflutren protein A microsphere (Optison) 3 mL in sodium chloride (PF) 0.9 % 10 mL IV syringe (2 sources) Start: 09-20-2023 End: 09-22-2023 0-10 mL, IntraVENous, IMG once PRN, other, Suboptimal echo image, Starting on Tue09/20/23 at 0813, For 1 dose, CV Procedural Medications, Administer via slow IVP for suboptimal echocardiogram enhancement. May administer as divided doses to reach optimal image enhancement polyethylene glycol 3350 14434 mg powder for oral solution (14 sources) Osmotic Laxative Start: 07-30-2024 End: 08-08-2024 take 17 g by mouth every twenty-four hours as needed for constipation 17 g, Oral, Daily PRN, constipation, Starting on Tue07/30/24 at 2312, 1st line for treatment of constipation - give scheduled if no bowel movement in past 24 hours. Start: 09-20-2023 End: 09-25-2023 take 17 g by mouth every twenty-four hours as needed polyethylene glycol, PEG, 3350 (Miralax) 17 g packet Take 17 g by mouth Daily as needed (constipation) for up to 3 days. 09/22/2023 09/25/2023 Active Start: 02-14-2023 End: 02-21-2023 take 17 g by mouth every twenty-four hours as needed polyethylene glycol, PEG, 3350 (Miralax) 17 g packet Take 17 g by mouth Daily as needed (constipation) for up to 3 days. 0 02/18/2023 02/21/2023 Active Start: 11-06-2022 End: 11-08-2022 take 17 g by mouth every twenty-four hours as needed for constipation polyethylene glycol (PEG) 3350 (Miralax) packet 17 g Start: 05-21-2022 End: 05-24-2022 take 17 g by mouth every twenty-four hours as needed for constipation 17 g, Oral, Daily PRN, constipation, Starting on Tue05/21/22 at 0525 1st line for treatment of constipation - give scheduled if no bowel movement in past 24 hours. microencapsulated potassium chloride 10 meq extended release oral tablet (20 sources) Start: 09-21-2023 End: 09-21-2023 40 mEq, Oral, 2 times daily, First dose on Tue09/21/23 at 0900, For 2 doses, Best given with food and plenty of water to minimize gastric irritation. Do not crush or chew. Start: 09-20-2023 End: 09-20-2023 40 mEq, Oral, Once, On Tue at 0200, For 1 dose, Best given with food and plenty of water to minimize gastric irritation. Do not crush or chew. Start: 09-20-2023 End: 09-20-2023 40 mEq, Oral, Once, On Tue at 0200, For 1 dose, Best given with food and plenty of water to minimize gastric irritation. Do not crush or chew. Start: 09-19-2023 End: 09-19-2023 10 mEq, IntraVENous, at 100 mL/hr, Administer over 1 Hours, Every 1 hour, First dose on Tue09/19/23 at 1800, For 4 doses, Total dose: 40 mEq Start: 09-19-2023 End: 09-19-2023 40 mEq, Oral, Once, On Tue at 1740, For 1 dose, Best given with food and plenty of water to minimize gastric irritation. Do not crush or chew. Start: 02-16-2023 End: 02-16-2023 potassium chloride (Klor-Con ) packet 40 mEq Start: 2022 End: 05-03-2023 take 2 tablets by mouth in the morning potassium chloride 20 mEq TbER take 2 tablets by mouth in the morning 0 2022 05/03/2023 Discontinued Start: 01-17-2020 End: 02-18-2023 take 2 tablets by mouth once daily potassium chloride CR (Klor-Con M20) 20 MEQ ER tablet Take 2 tablets by mouth daily. 0 02/08/2020 Active Start: 11-22-2019 End: 11-22-2019 potassium chloride (KLOR-CON M) extended release tablet 40 mEq Comment on above: take 2 tablets by mo uth in the morning potassium chloride 10 mEq, magnesium sulfate 1 g in sodium chloride 0.9 % 500 mL IVPB (8 sources) Start: 02-22-2020 End: 02-22-2020 potassium chloride 10 mEq, magnesium sulfate 1 g in sodium chloride 0.9 % 500 mL IVPB Start: 02-22-2020 End: 02-22-2020 potassium chloride 10 mEq, m agnesium sulfate 1 g in sodium chloride 0.9 % 500 mL IVPB Start: 02-08-2020 End: 02-08-2020 potassium chloride 10 mEq, m agnesium sulfate 1 g in sodium chloride 0.9 % 500 mL IVPB Start: 02-08-2020 End: 02-08-2020 potassium chloride 10 mEq, m agnesium sulfate 1 g in sodium chloride 0.9 % 500 mL IVPB Start: 02-01-2020 End: 02-01-2020 potassium chloride 10 mEq, m agnesium sulfate 1 g in sodium chloride 0.9 % 500 mL IVPB Start: 02-01-2020 End: 02-01-2020 potassium chloride 10 mEq, m agnesium sulfate 1 g in sodium chloride 0.9 % 500 mL IVPB Start: 01-25-2020 End: 01-25-2020 potassium chloride 10 mEq, m agnesium sulfate 1 g in sodium chloride 0.9 % 500 mL IVPB Start: 01-25-2020 End: 01-25-2020 potassium chloride 10 mEq, m agnesium sulfate 1 g in sodium chloride 0.9 % 500 mL IVPB salmon calcitonin 200 unt/ml injectable solution (20 sources) Calcitonin Start: 07-31-2024 End: 08-08-2024 inject 50 [IU] by intramuscular injection once daily 50 Units, IntraMUSCular, Daily, First dose on Tue07/31/24 at 0900 Start: 09-20-2023 End: 09-22-2023 inject 50 [IU] by intramuscular injection once daily 50 Units, IntraMUSCular, Daily, First dose on Tue09/20/23 at 0900 Start: 02-19-2023 End: 08-08-2024 calcitonin (Miacalcin) 200 U NIT/ML injection Inject 0.25 mL (50 Units) into the shoulder, thigh, or buttocks daily. 02/19/2023 08/08/2024 Discontinued (Stop taking at discharge) Start: 02-14-2023 End: 05-03-2023 calcitonin, salmon, (MIACALC IN) 200 unit/mL injection Inject 50 Units intramuscularly. 0 02/19/2023 05/03/2023 Discontinued Comment on above: Inject 50 Units intr amuscularly. sertraline 100 mg oral tablet (20 sources) Serotonin Reuptake Inhibitor Start: 11-06-2022 End: 11-08-2022 sertraline (Zoloft) tablet 200 mg Start: 05-21-2022 End: 05-24-2022 take 200 mg by mouth once daily 200 mg, Oral, Daily, F irst dose on Tue05/21/22 at 0800 Start: 02-02-2021 End: 02-18-2023 take 2 tablets by mouth in the morning sertraline (Zoloft) 100 MG tablet Take 200 mg by mouth in the morning. 0 02/02/2021 02/18/2023 Discontinued (Stop taking at discharge) Start: 11-22-2019 take 200 mg by mouth once sean y 200 mg, Oral, DAILY, First dose on Olga 11/22/19 at 0900 Start: 08-03-2019 take 200 mg by mouth once sean y 200 mg, Oral, DAILY, First dose on Tue08/03/19 at 0900 Comment on above: Take 2 tablets by mo [facility] once daily. TAKE 2 TABLETS BY MO [facility] EVERY DAY sodium chloride 0.111 meq/ml nasal solution (20 sources) Start: 08-01-2024 End: 08-08-2024 take 2 spray(s) nasal route every two hours as needed for congestion 2 spray, Each Nostril, Every 2 hour PRN, congestion, Starting on Tue08/01/24 at 1751 Start: 04-27-2024 End: 04-28-2024 1,000 mL, IntraVENous, at 1, 000 mL/hr, Administer over 1 Hours, Once, On Tue04/27/24 at 2350, For 1 dose Start: 09-19-2023 End: 09-19-2023 500 mL, IntraVENous, at 1,00 0 mL/hr, Administer over 0.5 Hours, Once, On Tue09/19/23 at 1740, For 1 dose Start: 08-07-2023 End: 08-07-2023 sodium chloride 0.9 % bolus 1,701 mL Start: 02-17-2023 End: 02-18-2023 sodium chloride 0.9 % infusi on Start: 02-17-2023 End: 02-17-2023 sodium chloride 0.9 % bolus 500 mL Start: 02-13-2023 End: 02-13-2023 sodium chloride 0.9 % bolus 500 mL Start: 11-06-2022 End: 11-08-2022 sodium chloride 0.9 % infusi on Start: 11-06-2022 End: 11-08-2022 take 5-40 mL intravenously every twelve hours sodium chloride 0.9% (NS) flush 5-40 mL Start: 05-21-2022 End: 05-24-2022 take 5-40 mL intravenously every twelve hours 5-40 mL, IntraVENous, Every 12 hours, First dose on Tue05/21/22 at 0530 For Line Patency: Peripheral IV = 5 mL; Midline or Central Line = 10 mL/lumen. If following IV push medication, administer flush at same rate as the IV push. Flush volume is determined by type of infusion therapy being given. For non-viscous solutions use: Peripheral IV = 5 mL Midline or Central Line = 10 mL/lumen For viscous solutions (i.e. blood components, parenteral nutrition, contrast media, or after obtaining blood sample) use: Peripheral IV = 10 mL Midline or Central Line = 20 mL/lumen Start: 05-21-2022 End: 05-24-2022 take 100 mL intravenously every hour 100 mL/hr, IntraVENous, Continuous, Starting on Tue05/21/22 at 0530 Start: 05-21-2022 End: 05-24-2022 take 5-40 mL intravenously once as needed 5-40 mL, IntraVENous, PRN, line care, After every IV line use, Starting on Tue05/21/22 at 0525 For Line Patency: Peripheral IV = 5 mL; Midline or Central Line = 10 mL/lumen. If following IV push medication, administer flush at same rate as the IV push. Flush volume is determined by type of infusion therapy being given. For non-viscous solutions use: Peripheral IV = 5 mL Midline or Central Line = 10 mL/lumen For viscous solutions (i.e. blood components, parenteral nutrition, contrast media, or after obtaining blood sample) use: Peripheral IV = 10 mL Midline or Central Line = 20 mL/lumen Start: 10-14-2021 End: 10-15-2021 sodium chloride flush 0.9 % injection 5-40 mL Start: 12-26-2020 End: 12-27-2020 sodium chloride flush 0.9 % injection 10 mL Start: 06-09-2020 End: 06-10-2020 sodium chloride flush 0.9 % injection 10 mL Start: 02-22-2020 End: 02-22-2020 0.9 % sodium chloride infusi on Start: 02-21-2020 End: 02-22-2020 sodium chloride flush 0.9 % injection 10 mL Start: 02-08-2020 End: 02-08-2020 0.9 % sodium chloride infusi on Start: 02-07-2020 End: 02-08-2020 sodium chloride flush 0.9 % injection 20 mL Start: 02-01-2020 End: 02-01-2020 0.9 % sodium chloride infusi on Start: 01-31-2020 End: 02-01-2020 sodium chloride flush 0.9 % injection 10 mL Start: 01-25-2020 End: 01-25-2020 0.9 % sodium chloride infusi on Start: 01-24-2020 End: 01-25-2020 sodium chloride flush 0.9 % injection 20 mL Start: 01-17-2020 End: 01-18-2020 sodium chloride flush 0.9 % injection 20 mL Start: 12-19-2019 0.9 % sodium c hloride infusion Start: 11-22-2019 End: 11-25-2019 sodium chloride flush 0.9 % injection 10 mL Start: 11-21-2019 10 mL, Intrave nous, EVERY 12 HOURS SCHEDULED (2 times per day), First dose on Tue11/21/19 at 2215 Start: 11-21-2019 take 10 mL intraveno us route once as needed 10 mL, Intravenous, PRN, Line Care, After every IV line use, Starting Tue11/21/19 at 2147 Start: 11-21-2019 End: 11-23-2019 Intravenous, at 50 mL/hr, CONTINUOUS, Starting Tue11/21/19 at 2215 Start: 10-27-2019 End: 10-27-2019 0.9 % sodium chloride bolus Start: 08-02-2019 End: 08-02-2019 0.9 % sodium chloride bolus technetium Tc-99m medronate (Tc-MDP) radio-isotope injection 22 millicurie (2 sources) Start: 02-17-2023 End: 02-17-2023 technetium Tc-99m medronate (Tc-MDP) radio-isotope injection 22 millicurie 10 actuat tiotropium 0.0025 mg/actuat inhalation spray (20 sources) Anticholinergic Start: 07-31-2024 End: 08-08-2024 2 puff, Inhalation, Daily, First dose on Tue07/31/24 at 0800, Instruct to hold breath for 10 seconds after each inhalation. Before first use, prime inhaler by actuating until aerosal cloud is seen, then actuating 3 more times. Start: 09-20-2023 End: 09-22-2023 2 puff, Inhalation, Daily, F irst dose on Tue09/20/23 at 1300, Instruct to hold breath for 10 seconds after each inhalation. Before first use, prime inhaler by actuating until aerosal cloud is seen, then actuating 3 more times. Start: 02-16-2023 End: 02-18-2023 take 1 capsule by inhalation once daily 18 mcg (1 capsule), Inhalation, Daily, First dose on Tue02/16/23 at 1745 Start: 11-24-2022 End: 11-28-2023 take 2 puff(s) by mouth once daily tiotropium bromide (SPIRIVA RESPIMAT) 2.5 mcg/actuation inhaler Indications: Pulmonary emphysema, unspecified emphysema type (HCC) INHALE 2 PUFFS BY MOUTH ONCE DAILY DIRECTED 3 Each 3 11/28/2023 Active Start: 11-06-2022 End: 11-08-2022 take 1 capsule by inhalation once daily 18 mcg (1 capsule), Inhalation, Daily, First dose on Tue11/06/22 at 1700 Start: 11-20-2021 take 2 puff(s) by in halation in the morning tiotropium (Spiriva Respimat) 2.5 MCG/ACT inhaler Inhale 2 puffs in the morning. 11/20/2021 Active Start: 11-20-2021 End: 11-24-2022 take 2 puff(s) by inhalation once daily, then take 2 puff(s) by inhalation once daily tiotropium bromide (SPIRIVA RESPIMAT) 2.5 mcg/actuation inhaler Indications: Pulmonary emphysema, unspecified emphysema type (HCC) Inhale 2 Puffs as instructed once daily. Inhale two puffs once daily. 12 g 3 11/20/2021 11/24/2022 Discontinued Start: 05-06-2021 take 2 puff(s) by in halation once daily, then take 2 puff(s) by inhalation once daily tiotropium bromide (SPIRIVA RESPIMAT) 2.5 mcg/actuation inhaler Indications: Pulmonary emphysema, unspecified emphysema type (HCC) Inhale 2 Puffs as instructed once daily. Inhale two puffs once daily. 4 mL 5 05/06/2021 Active Start: 11-22-2019 tiotropium (SP IRIVA) inhalation capsule 18 mcg Tiotropium Bromi de Monohydrate (SPIRIVA HANDIHALER IN) Inhale into the lungs 2 times daily 0 Active Comment on above: Inhale 2 Puffs as in structed once daily. Inhale two puffs once daily. INHALE 2 PUFFS BY MO UT ONCE DAILY DIRECTED Problems Active Problems Problem Classification Problem Date Documented Date Episodic/Chronic Acute cerebrovascular disease (3 sources) Ischemic stroke; Translations: [Acute ischemic stroke] Onset: 11-22-2019 11-22-2019 Chronic Administrative/social admission (20 sources) Patient encounter status; Translations: [Other specified counseling] Resolved: 09-23-2016 09-23-2016 Episodic Anxiety disorders (20 sources) Generalized anxiety disorder; Translations: [Generalized anxiety disorder] Onset: 03-11-2023 03-11-2023 Chronic Aspiration pneumonitis; food/vomitus (1 source) Aspiration pneumonia; Translations: [Pneumonitis due to inhalation of food and vomit] 08-20-2024 Episodic Asthma (1 source) Mild intermittent asthma, uncomplicated; Translations: [Mild intermittent asthma, uncomplicated] Onset: 08-29-2024 Chronic Cardiac and circulatory congenital anomalies (13 sources) Patent foramen ovale; Translations: [PFO (patent foramen ovale)] Onset: 09-20-2023 09-20-2023 Chronic Chronic obstructive pulmonary disease and bronchiectasis (20 sources) Chronic obstructive lung disease; Translations: [Acute exacerbation of chronic obstructive airways disease] Onset: 09-14-2016 Resolved: 09-20-2023 04-10-2017 Chronic Chronic obstructive pulmonary disease and bronchiectasis (3 sources) Bronchitis; Translations: [Bronchitis, not specified as acute or chronic] 08-07-2023 Episodic Complication of device; implant or graft (20 sources) Disorder of cardiovascular prostheses and implants; Translations: [Other specified complication of vascular prosthetic devices, implants and grafts, initial encounter] Onset: 08-06-2021 Chronic Diabetes mellitus without complication (1 source) Hyperglycemia; Translations: [Hyperglycemia, unspecified] 05-02-2024 Episodic Diseases of white blood cells (20 sources) Leukocytosis; Translations: [Elevated white blood cell count, unspecified] Onset: 04-10-2017 04-13-2018 Chronic Disorders of lipid metabolism (4 sources) Mixed hyperlipidemia; Translations: [Mixed hyperlipidemia] Chronic Fluid and electrolyte disorders (20 sources) Hyperosmolality and hypernatremia; Translations: [Hypokalemia] Onset: 09-17-2016 Resolved: 04-13-2018 09-22-2016 Episodic Fracture of upper limb (4 sources) Closed supracondylar fracture of left humerus; Translations: [Displaced simple supracondylar fracture without intercondylar fracture of left humerus, initial encounter for closed fracture] Onset: 07-30-2024 07-30-2024 Episodic Mood disorders (20 sources) Recurrent major depression; Translations: [Major depressive disorder, recurrent, unspecified] Onset: 04-12-2018 04-12-2018 Chronic Nutritional deficiencies (20 sources) Malnutrition (calorie); Translations: [Moderate protein-calorie malnutrition] Onset: 04-13-2018 Resolved: 09-20-2023 04-13-2018 Chronic Osteoporosis (20 sources) Osteoporosis; Translations: [Age-related osteoporosis without current pathological fracture] 07-11-2018 Chronic Other aftercare (1 source) Post-discharge follow-up; Translations: [Encounter for follow-up examination after completed treatment for conditions other than malignant neoplasm] 08-20-2024 Episodic Other aftercare (2 sources) Encounter for follow-up examination after completed treatment for conditions other than malignant neoplasm; Translations: [Encounter for follow-up examination after completed treatment for conditions other than malignant neoplasm] Onset: 08-20-2024 Episodic Other connective tissue disease (2 sources) Swelling of lower limb; Translations: [Leg swelling] Episodic Other connective tissue disease (3 sources) Muscle weakness of upper limb; Translations: [Right arm weakness] Onset: 11-21-2019 11-21-2019 Episodic Other diseases of veins and lymphatics (2 sources) Other specified disorders of veins; Translations: [Other specified disorders of veins] Onset: 01-01-2022 Episodic Other fractures (1 source) Closed fracture of coccyx; Translations: [Fracture of coccyx, initial encounter for closed fracture] Episodic Other fractures (2 sources) Fracture of seventh thoracic vertebra; Translations: [Wedge compression fracture of T7-T8 vertebra, initial encounter for closed fracture] 09-19-2023 Episodic Other injuries and conditions due to external causes (2 sources) Closed injury of head; Translations: [Unspecified injury of head, initial encounter] 09-19-2023 Episodic Other lower respiratory disease (20 sources) Solitary pulmonary nodule; Translations: [Nodule of lung] Onset: 04-10-2017 04-10-2017 Episodic Other lower respiratory disease (2 sources) Other nonspecific abnormal finding of lung field; Translations: [Other nonspecific abnormal finding of lung field] Onset: 10-14-2021 Episodic Other nervous system disorders (20 sources) Chronic pain syndrome; Translations: [Chronic pain syndrome] Onset: 03-11-2023 Resolved: 03-11-2023 03-11-2023 Chronic Other nervous system disorders (9 sources) Chronic pain; Translations: [Other chronic pain] Onset: 04-10-2017 08-03-2024 Chronic Other nervous system disorders (9 sources) Impaired cognition; Translations: [Other symptoms and signs involving cognitive functions and awareness] Onset: 08-03-2024 08-03-2024 Episodic Other nutritional; endocrine; and metabolic disorders (13 sources) Adult failure to thrive syndrome; Translations: [Adult failure to thrive] Onset: 07-30-2024 07-30-2024 Episodic Other nutritional; endocrine; and metabolic disorders (2 sources) Adult failure to thrive; Translations: [Adult failure to thrive] Onset: 07-30-2024 Episodic Other screening for suspected conditions (not mental disorders or infectious disease) (5 sources) CT of chest abnormal; Translations: [Abnormal findings on diagnostic imaging of other specified body structures] Onset: 10-14-2021 Chronic Other upper respiratory infections (1 source) Acute sinusitis; Translations: [Other acute sinusitis] Episodic Paralysis (20 sources) Weakness of right arm; Translations: [Right arm weakness] Onset: 11-21-2019 11-21-2019 Pathological fracture (5 sources) Pathological fracture of femur due to osteoporosis; Translations: [Age-related osteoporosis with current pathological fracture, left femur, subsequent encounter for fracture with routine healing] 12-11-2022 Episodic Residual codes; unclassified (1 source) Radiology result abnormal; Translations: [Abnormal findings on diagnostic imaging of other specified body structures] Episodic Residual codes; unclassified (1 source) Family history of breast cancer; Translations: [Family history of malignant neoplasm of breast] 01-22-2023 Episodic Residual codes; unclassified (9 sources) At risk of delirium; Translations: [Other specified personal risk factors, not elsewhere classified] Onset: 08-03-2024 08-03-2024 Episodic Respiratory failure; insufficiency; arrest (adult) (20 sources) Dependence on supplemental oxygen; Translations: [Dependence on supplemental oxygen] Onset: 09-14-2016 Resolved: 09-23-2016 04-10-2017 Chronic Spondylosis; intervertebral disc disorders; other back problems (20 sources) Degeneration of cervical intervertebral disc; Translations: [Other cervical disc degeneration, unspecified cervical region] Onset: 04-12-2018 04-12-2018 Chronic Unclassified (20 sources) Compression fracture of thoracic vertebra; Translations: [Thoracic compression fracture] 04-12-2018 Unclassified (1 source) Abnormal findings on diagnostic imaging of other specified body structures; Translations: [Abnormal CT of the chest] Unclassified (1 source) OPENED IN ERROR 10-06-2023 Viral infection (20 sources) Infection due to Human parainfluenza virus 3; Translations: [Other viral infections of unspecified site] Onset: 09-14-2016 Resolved: 09-23-2016 09-23-2016 Episodic Past or Other Problems Problem Classification Problem Date Documented Date Episodic/Chronic Bacterial infection; unspecified site (20 sources) Haemophilus infection; Translations: [Hemophilus influenzae infection, unspecified site] Onset: 09-19-2016 Resolved: 09-23-2016 09-23-2016 Episodic Cancer of cervix (20 sources) Malignant neoplasm of exocervix; Translations: [Malignant neoplasm of exocervix] Onset: 11-02-2019 Resolved: 05-20-2023 11-07-2019 Chronic Cancer of cervix (20 sources) History of malignant neoplasm of cervix; Translations: [Personal history of malignant neoplasm of cervix uteri] Onset: 11-02-2019 03-09-2023 Episodic E Codes: Fall (20 sources) Fall; Translations: [Unspecified fall, initial encounter] Onset: 05-21-2022 Resolved: 11-06-2022 05-21-2022 Episodic Fracture of neck of femur (hip) (20 sources) Closed intertrochanteric fracture; Translations: [Displaced intertrochanteric fracture of left femur, initial encounter for closed fracture] Onset: 11-06-2022 11-06-2022 Episodic Fracture of upper limb (20 sources) Closed fracture of upper end of humerus; Translations: [Other nondisplaced fracture of upper end of right humerus, subsequent encounter for fracture with routine healing] Onset: 05-22-2022 Resolved: 11-06-2022 Episodic Genitourinary symptoms and ill-defined conditions (20 sources) Blood in urine; Translations: [Hematuria, unspecified] Onset: 09-22-2016 Resolved: 04-13-2018 04-13-2018 Episodic Malaise and fatigue (17 sources) Asthenia; Translations: [Other malaise] Onset: 09-20-2023 09-20-2023 Episodic Neoplasms of unspecified nature or uncertain behavior (20 sources) Neoplasm of uncertain behavior of skin; Translations: [Neoplasm of uncertain behavior of skin] Onset: 04-23-2016 03-11-2023 Episodic Open wounds of head; neck; and trunk (2 sources) Facial laceration ; Translations: [Laceration without foreign body of other part of head, initial encounter] Episodic Other circulatory disease (20 sources) Drug-induced hypotension; Translations: [Hypotension due to drugs] Onset: 09-14-2016 Resolved: 09-22-2016 09-22-2016 Episodic Other circulatory disease (20 sources) Difficult venous access; Translations: [Other specified disorders of veins] Onset: 12-19-2019 12-19-2019 Episodic Other circulatory disease (20 sources) History of cerebrovascular accident; Translations: [Personal history of transient ischemic attack (TIA), and cerebral infarction without residual deficits] Onset: 11-22-2019 12-14-2019 Episodic Other connective tissue disease (10 sources) Weakness of right arm; Translations: [Other symptoms and signs involving the musculoskeletal system] Onset: 11-21-2019 11-21-2019 Episodic Other connective tissue disease (20 sources) Other symptoms and signs involving the musculoskeletal system; Translations: [Other musculoskeletal symptoms referable to limbs] Onset: 11-21-2019 Resolved: 11-06-2022 01-01-2022 Episodic Other connective tissue disease (17 sources) Recurrent falls ; Translations: [Repeated falls] Onset: 09-20-2023 02-13-2023 Episodic Other fractures (20 sources) Compression fracture of lumbar spine; Translations: [Wedge compression fracture of unspecified lumbar vertebra, initial encounter for closed fracture] Onset: 02-13-2023 02-13-2023 Episodic Other fractures (20 sources) Compression fracture of thoracic vertebra; Translations: [Wedge compression fracture of unspecified thoracic vertebra, initial encounter for closed fracture] Onset: 04-12-2018 Resolved: 11-06-2022 04-12-2018 Episodic Other fractures (20 sources) Compression fracture of thoracic spine; Translations: [Wedge compression fracture of unspecified thoracic vertebra, initial encounter for closed fracture] Onset: 07-11-2018 Episodic Other fractures (2 sources) Wedge compression fracture of unspecified thoracic vertebra, initial encounter for closed fracture; Translations: [Wedge compression fracture of unspecified thoracic vertebra, initial encounter for closed fracture (HCC)] Onset: 10-16-2023 Episodic Other fractures (2 sources) Wedge compression fracture of T5-T6 vertebra, initial encounter for closed fracture; Translations: [Wedge compression fracture of T5-T6 vertebra, initial encounter for closed fracture (HCC)] Onset: 09-19-2023 Episodic Other fractures (2 sources) Wedge compression fracture of T7-T8 vertebra, initial encounter for closed fracture; Translations: [Wedge compression fracture of T7-T8 vertebra, initial encounter for closed fracture (HCC)] Onset: 09-19-2023 Episodic Other fractures (2 sources) Wedge compression fracture of first lumbar vertebra, initial encounter for closed fracture; Translations: [Wedge compression fracture of first lumbar vertebra, initial encounter for closed fracture (HCC)] Onset: 09-19-2023 Episodic Other injuries and conditions due to external causes (2 sources) Unspecified injury of head, initial encounter; Translations: [Unspecified injury of head, initial encounter] Onset: 09-19-2023 Episodic Other liver diseases (20 sources) Enzyme level - finding; Translations: [Transaminitis] Onset: 09-14-2016 Resolved: 09-22-2016 09-22-2016 Episodic Other lower respiratory disease (9 sources) Lung mass; Translations: [Pulmonary nodule] Onset: 04-10-2017 04-10-2017 Episodic Other lower respiratory disease (20 sources) Hypercapnia with mixed acid-base disorder; Translations: [Hypercapnia with mixed acid-base disorder] Onset: 09-17-2016 Resolved: 09-22-2016 09-22-2016 Episodic Other lower respiratory disease (20 sources) Dyspnea; Translations: [Shortness of breath] Onset: 04-13-2018 04-13-2018 Episodic Other nutritional; endocrine; and metabolic disorders (20 sources) Obese class I; Translations: [Obesity, unspecified] Onset: 12-07-2018 Resolved: 03-11-2023 12-07-2018 Chronic Other nutritional; endocrine; and metabolic disorders (15 sources) Unintentional weight loss; Translations: [Abnormal weight loss] Onset: 09-20-2023 09-20-2023 Episodic Other upper respiratory disease (20 sources) Mucoid impaction of bronchi; Translations: [Unspecified foreign body in bronchus causing asphyxiation, initial encounter] Onset: 09-15-2016 Resolved: 09-19-2016 09-19-2016 Episodic Pneumonia (except that caused by tuberculosis or sexually transmitted disease) (20 sources) Pneumonia; Translations: [Pneumonia, unspecified organism] Onset: 08-02-2019 08-02-2019 Episodic Residual codes; unclassified (20 sources) Chronic back pain ; Translations: [Chronic back pain] Onset: 04-10-2017 04-10-2017 Episodic Residual codes; unclassified (20 sources) H/O: hysterectomy; Translations: [S/P hysterectomy] Onset: 11-06-2019 11-07-2019 Episodic Respiratory failure; insufficiency; arrest (adult) (20 sources) Acute on chronic hypoxemic and hypercapnic respiratory failure; Translations: [Acute on chronic respiratory failure with hypoxia and hypercapnia] Onset: 09-14-2016 Resolved: 09-23-2016 09-23-2016 Screening and history of mental health and substance abuse codes (20 sources) Ex-smoker; Translations: [Personal history of nicotine dependence] Onset: 04-10-2017 04-10-2017 Episodic Spondylosis; intervertebral disc disorders; other back problems (20 sources) Sciatica; Translations: [Chronic low back pain] Onset: 04-10-2017 04-10-2017 Episodic Superficial injury; contusion (5 sources) Contusion of right elbow; Translations: [Contusion of right elbow, initial encounter] Onset: 04-27-2024 Episodic Syncope (4 sources) Near syncope; Translations: [Syncope and collapse] Onset: 09-19-2023 09-19-2023 Episodic Unclassified (20 sources) Patient encounter status; Translations: [Goals of care, counseling/discussion] Resolved: 09-23-2016 09-23-2016 Results Test Name Value Interpretation Reference Range Facility 36on 09-07-2024 36 Spoke to Nilesh from [facility] and scheduled patient for a follow up on 09/24@10am. Patient has not been seen for quite a while and also is requesting port removal to be scheduled. Normal [facility] 36 Nilesh from [facility] states pt's port was flushed but there was no blood draw back. Patient requested for the port to be removed due to not being used for roughly 1 year. Please contact Nilesh with further questions at [phone] Normal [facility] Progress Noteon 09-06-2024 Progress Note Normal [facility] Thyroid Stim Hormone (TSH)on 08-22-2024 TSH 0.786 uIU/mL Normal 0.300-4.200 [facility] Comment on above: Order Comment: 102.2 Performed By: #### L [id number] #### [facility] [address] [place], [address] 37on 08-20-2024 37 Normal [facility] Progress Noteon 08-20-2024 Progress Note Normal [facility] Basic Metabolic Profile (BMP )on 08-15-2024 BUN/CRE 28.5 RATIO High 10-20 [facility] Comment on above: Order Comment: 102-2 Performed By: #### L 100.0500, L500.2500 #### [facility] [address] [place], [address] Calcium [Mass/Vol] 8.8 mg/dL Normal 7.6-11.0 [place] Comment on above: Order Comment: 102-2 Performed By: #### L 100.0500, L500.2500 #### [facility] [address] [place], [address] Chloride [Moles/Vol] 103 mmol/L Normal 98-108 [facility] Comment on above: Order Comment: 102-2 Performed By: #### L 100.0500, L500.2500 #### [facility] [address] [place], [address] CO2 [Moles/Vol] 31.7 mmol/L Normal 21.0-32.0 [facility] Comment on above: Order Comment: 102-2 Performed By: #### L 100.0500, L500.2500 #### [facility] [address] [place], [address] Creatinine [Mass/Vol] 0.47 mg/dL Low 0.70-1.[address] [facility] Comment on above: Order Comment: 102-2 Performed By: #### L 100.0500, L500.2500 #### [facility] [address] [place], [address] GAP 7 Normal 5-15 [facility] Comment on above: Order Comment: 102-2 Performed By: #### L 100.0500, L500.2500 #### [facility] [address] [place], [address] GFR/1.73 sq M.predicted among non-blacks MDRD (S/P/Bld) [Vol rate/Area] 104 mL/min/{1.73_m2} Normal >60 [facility] Comment on above: Order Comment: 102-2 Result Comment: mL/m in/1.73m2 CKD-EPI Creatinine Equation (2020) Performed By: #### L 100.0500, L500.2500 #### [facility] [address] [place], [address] Glucose [Mass/Vol] 85 mg/dL Normal 70-99 [place] Comment on above: Order Comment: 102-2 Performed By: #### L 100.0500, L500.2500 #### [facility] [address] [place], [address] Potassium [Moles/Vol] 3.9 mmol/L Normal 3.3-5.[address] [facility] Comment on above: Order Comment: 102-2 Performed By: #### L 100.0500, L500.2500 #### [facility] [address] [place], [address] Sodium [Moles/Vol] 142 mmol/L Normal 133-145 [place] Comment on above: Order Comment: 102-2 Performed By: #### L 100.0500, L500.2500 #### [facility] [address] [place], [address] Urea nitrogen [Mass/Vol] 13 mg/dL Normal 4-19 [facility] Comment on above: Order Comment: 102-2 Performed By: #### L 100.0500, L500.2500 #### [facility] [address] [place], [address] CBC-Complete Blood Cnt No Di ffon 08-15-2024 Erythrocyte distribution width (RBC) [Ratio] 14.0 % Normal 11.6-14.6 [facility] Comment on above: Order Comment: 102-2 Performed By: #### L 100.0500, L500.2500 #### [facility] [address] [place], [address] Hematocrit (Bld) [Volume fraction] 34.7 % Low 37-47 [facility] Comment on above: Order Comment: 102-2 Performed By: #### L 100.0500, L500.2500 #### [facility] [address] [place], [address] Hemoglobin (Bld) [Mass/Vol] 10.4 g/dL Low 12.0-15.0 [facility] Comment on above: Order Comment: 102-2 Performed By: #### L 100.0500, L500.2500 #### [facility] [address] [place], [address] MCH (RBC) [Entitic mass] 31.2 pg Normal 27.0-32.0 [facility] Comment on above: Order Comment: 102-2 Performed By: #### L 100.0500, L500.2500 #### [facility] [address] [place], [address] MCHC (RBC) [Mass/Vol] 30.0 g/dL Low 32-[address] [facility] Comment on above: Order Comment: 102-2 Performed By: #### L 100.0500, L500.2500 #### [facility] [address] [place], [address] MCV (RBC) [Entitic vol] 104.2 fL High 81-99 [facility] Comment on above: Order Comment: 102-2 Performed By: #### L 100.0500, L500.2500 #### [facility] [address] [place], [address] Platelet mean volume (Bld) [Entitic vol] 9.8 fL Normal 6.2-12.0 [facility] Comment on above: Order Comment: 102-2 Performed By: #### L 100.0500, L500.2500 #### [facility] [address] [place], [address] Platelets (Bld) [#/Vol] 236 10*3/uL Normal 150-450 [facility] Comment on above: Order Comment: 102-2 Performed By: #### L 100.0500, L500.2500 #### [facility] [address] [place], [address] RBC (Bld) [#/Vol] 3.33 10*6/uL Low 4.2-5.4 [facility] Comment on above: Order Comment: 102-2 Performed By: #### L 100.0500, L500.2500 #### [facility] [address] [place], [address] RDW SD 54.0 fl High 35.1-43.9 [facility] Comment on above: Order Comment: 102-2 Performed By: #### L 100.0500, L500.2500 #### [facility] [address] [place], [address] WBC (Bld) [#/Vol] 9.4 10*3/uL Normal 4.4-11.0 [place] Comment on above: Order Comment: 102-2 Performed By: #### L 100.0500, L500.2500 #### [facility] [address] [place], [address] [id number] 08-10-2024 [id number] Patient Choice Patient Name: GONZALO DELUCA Date of : 1955 30on 08-08-2024 30 30 Normal [facility] [id number] 08-08-2024 [id number] MAR, Discharge med list transmitted and 7000 in HENs to [facility] [place] via [employer] per [facility]CC request. C METABOLIC PANELon 05- Anion gap [Moles/Vol] 8 mmol/L Normal 3-13 [facility] Comment on above: Performed By: #### L [id number] ####Natural Gas Inspector: HANS PAULSON ([id number])[facility] CAN[facility]ENTERNorma [facility]IC[facility] ([facility])[address] [place] [address] Calcium [Mass/Vol] 8.6 mg/dL Low 8.8-10.0 [facility] Comment on above: Performed By: #### L [id number] ####Natural Gas Inspector: HANS PAULSON ([id number])[facility] CAN[facility] CENTERNorma [facility]ICKS ([facility])[address] Chloride [Moles/Vol] 101 mmol/L Normal 98-107 [facility] Comment on above: Performed By: #### L [id number] ####Natural Gas Inspector: HANS WALDROPKimESCOBAR ([id number])[facility] MAKAYLALOS [facility]OS MEDICAL CENTERN ([facility])[address] CO2 [Moles/Vol] 32 mmol/L High 23-31 [facility] Comment on above: Performed By: #### L [id number] ####Natural Gas Inspector: HANS WALDROPIVELISSE ([id number])[facility] ([facility])[address] Creatinine [Mass/Vol] 0.63 mg/dL Normal 0.57-1.11 [facility] Comment on above: Performed By: #### L [id number] ####Natural Gas Inspector: HANS ALCANTARESCOBAR ([id number])[facility] ([facility])[address] GLOMERULAR FILTRATION RATE ML/MIN/1.73 SQ M.PREDICTED >90.0 Normal >60.0 [facility] Comment on above: Result Comment: Calc ulation based on the Chronic Kidney Disease Epidemiology Collaboration (CKD-EPI) equation refit without adjustment for race Performed By: #### L [id number] ####Natural Gas Inspector: HANS PAULSON ([id number])[facility] ([facility])[address] Glucose [Mass/Vol] 99 mg/dL Normal 82-115 [facility] Comment on above: Performed By: #### L [id number] ####Natural Gas Inspector: HANS PAULSON ([id number])[facility] Potassium [Moles/Vol] 3.9 mmol/L Normal 3.5-5.1 [facility] Comment on above: Result Comment: [facility] potassium values may be up to 0.5 mmol/L lower than serum values. Performed By: #### L AB15 ####Natural Gas Inspector: HANS PAULSON ([id number])[facility]ENTERNorma [facility] ([facility])[address] Sodium [Moles/Vol] 141 mmol/L Normal 136-145 [facility] Comment on above: Performed By: #### L [id number] ####Natural Gas Inspector: HANS PAULSON ([id number])[facility] MAKAYLAHONORHEALTH REHABILIT[facility]ITAL ([facility])[address] Urea nitrogen [Mass/Vol] 22 mg/dL Normal 9-23 [facility] Comment on above: Performed By: #### L [id number] ####Natural Gas Inspector: HANS PAULSON ([id number])[facility] ([facility])[address] Basic metabolic 1998 panelon 08-08-2024 Anion gap [Moles/Vol] 8 mmol/L 3 - 13 mmol/L [facility] Calcium [Mass/Vol] 8.6 mg/dL Low 8.8 - 10. 0 mg/dL [facility] Chloride [Moles/Vol] 101 mmol/L 98 - 10 7 mmol/L [facility] CO2 [Moles/Vol] 32 mmol/L High 23 - 31 mmol/L [facility] Creatinine [Mass/Vol] 0.63 mg/dL 0.57 - 1.11 mg/dL [facility] GFR/1.73 sq M.predicted (S/P/Bld) [Vol rate/Area] - PINF [facility] Comment on above: Calculation based on the Chronic Kidney Disease Epidemiology Collaboration (CKD-EPI) equation refit without adjustment for race Glucose [Mass/Vol] 99 mg/dL 82 - 115 mg/dL [facility] Interpretation and review of laboratory results Abnormal [facility] Potassium [Moles/Vol] 3.9 mmol/L 3.5 - 5.1 mmol/L [facility] Comment on above: Plasma potassium martín ues may be up to 0.5 mmol/L lower than serum values. Sodium [Moles/Vol] 141 mmol/L 136 - 145 mmol/L [facility] Urea nitrogen [Mass/Vol] 22 mg/dL 9 - 23 mg/d L [facility] CBC W Auto Differential pane l (Bld)on 08-08-2024 Basophils (Bld) [#/Vol] 0 10*3/uL 0.0 - 0.2 10*3/uL [facility] Basophils/100 WBC (Bld) 0.2 % 0.0 - 2.0 % [facility] Eosinophils (Bld) [#/Vol] 0.4 10*3/uL 0.0 - 0.5 10*3/uL [facility] Eosinophils/100 WBC (Bld) 2.9 % 0.0 - 6.0 % [facility] Erythrocyte distribution width (RBC) [Ratio] 14.6 % 11.5 - 15.0 % [facility] Hematocrit (Bld) [Volume fraction] 33.7 % Low 35.0 - 47.0 % [facility] Hemoglobin (Bld) [Mass/Vol] 10.4 g/dL Low 11.7 - 16.0 g/dL [facility] Immature granulocytes (Bld) [#/Vol] 0 10*3/uL NINF - 0.1 10*3/uL [facility] Immature granulocytes/100 WBC (Bld) 0.3 % 0.0 - 2.0 % [facility] Interpretation and review of laboratory results Abnormal [facility] Lymphocytes (Bld) [#/Vol] 1.1 10*3/uL 1.0 - 4.3 10*3/uL [facility] Lymphocytes/100 WBC (Bld) 9 % Low 15.0 - 45.0 % [facility] MCH (RBC) [Entitic mass] 31.3 pg 26. 0 - 34.0 pg [facility] MCHC (RBC) [Mass/Vol] 30.9 % 30.5 - 36.0 % [facility] MCV (RBC) [Entitic vol] 101.5 fL High 77.0 - 99.0 fL [facility] Monocytes (Bld) [#/Vol] 1.2 10*3/uL High 0.0 - 0.9 10*3/uL [facility] Monocytes/100 WBC (Bld) 9.6 % 5.0 - 13.0 % [facility] Neutrophils (Bld) [#/Vol] 9.8 10*3/uL High 1.8 - 7.5 10*3/uL [facility] Neutrophils/100 WBC (Bld) 78 % 38.0 - 82.0 % [facility] Nucleated RBC/100 WBC (Bld) [Ratio] 0 % [facility] Platelet mean volume (Bld) [Entitic vol] 9.8 fL 9.0 - 12.7 fL [facility] Platelets (Bld) [#/Vol] 192 10*3/uL 140 - 440 10*3/uL [facility] RBC (Bld) [#/Vol] 3.32 10*6/uL Low 3.80 - 5.2 0 10*6/uL [facility] WBC (Bld) [#/Vol] 12.6 10*3/uL High 3.6 - 10.7 10*3/uL [facility] CBC WITH AUTO DIFFERENTIALon 08-08-2024 Basophils (Bld) [#/Vol] 0.0 10*3/uL Normal 0.0-0.2 [facility] Comment on above: Performed By: #### L [id number] ####Natural Gas Inspector: HANS PAULSON ([id number])[facility]ENTERA [place] ([facility])[address] Basophils/100 WBC (Bld) 0.2 % Normal 0.0-2.0 [facility] Comment on above: Performed By: #### L [id number] ####Natural Gas Inspector: HANS PAULSON ([id number])[facility]A [place] ([facility])[address] Eosinophils (Bld) [#/Vol] 0.4 10*3/uL Normal 0.0-0.5 [facility] Comment on above: Performed By: #### L [id number] ####Natural Gas Inspector: HANS PAULSON ([id number])[facility]A [place] ([facility])[address] [place] [address] [place] Eosinophils/100 WBC (Bld) 2.9 % Normal 0.0-6.0 [facility] Comment on above: Performed By: #### L [id number] ####Natural Gas Inspector: HANS PAULSON ([id number])[facility]A [place] ([facility])[address] Erythrocyte distribution width (RBC) [Ratio] 14.6 % Normal 11.5-15.0 [facility] Comment on above: Performed By: #### L [id number] ####Natural Gas Inspector: HANS PAULSON ([id number])[facility]A [place] ([facility])[address] Hematocrit (Bld) [Volume fraction] 33.7 % Low 35.0-47.0 [facility] Comment on above: Performed By: #### L [id number] ####Natural Gas Inspector: HANS PAULSON ([id number])[facility]A [facility] ([facility])[address] Hemoglobin (Bld) [Mass/Vol] 10.4 g/dL Low 11.7-16.0 [facility] Comment on above: Performed By: #### L [id number] ####Natural Gas Inspector: HANS PAULSON ([id number])[facility]A [facility] ([facility])[address] IMMATURE GRANS % 0.3 % Normal 0.0-2.0 [facility] Comment on above: Performed By: #### L [id number] ####Natural Gas Inspector: HANS PAULSON ([id number])[facility]A [facility] ([facility])[address] IMMATURE GRANS ABSOLUTE 0.0 10*3/uL Normal <0.1 [facility] Comment on above: Performed By: #### L [id number] ####Natural Gas Inspector: HANS PAULSON ([id number])[facility]A [facility] ([facility])[address] Lymphocytes (Bld) [#/Vol] 1.1 10*3/uL Normal 1.0-4.3 [facility] Comment on above: Performed By: #### L [id number] ####Natural Gas Inspector: HANS PAULSON ([id number])[facility] ([facility])[address] Lymphocytes/100 WBC (Bld) 9.0 % Low 15.0-45.0 [facility] Comment on above: Performed By: #### L [id number] ####Natural Gas Inspector: HANS PAULSON ([id number])[facility] [place] ([facility])[address] MCH (RBC) [Entitic mass] 31.3 pg Normal 26.0-34.0 [facility] Comment on above: Performed By: #### L [id number] ####Natural Gas Inspector: HANS PAULSON ([id number])[facility]A [facility] ([facility])[address] MCHC 30.9 % Normal 30.5-36.0 [facility] Comment on above: Performed By: #### L [id number] ####Natural Gas Inspector: HANS PAULSON ([id number])[facility]A [facility] ([facility])[address] MCV (RBC) [Entitic vol] 101.5 fL High 77.0-99.0 [facility] Comment on above: Performed By: #### L [id number] ####Natural Gas Inspector: HANS PAULSON ([id number])[facility]A [place] ([facility])[address] Monocytes (Bld) [#/Vol] 1.2 10*3/uL High 0.0-0.9 [facility] Comment on above: Performed By: #### L [id number] ####Natural Gas Inspector: HANS PAULSON ([id number])[facility] [place] ([facility])[address] Monocytes/100 WBC (Bld) 9.6 % Normal 5.0-13.0 [facility] Comment on above: Performed By: #### L [id number] ####Natural Gas Inspector: HANS PAULSON ([id number])[facility]A [facility] ([facility])[address] NEUTROPHILS ABSOLUTE 9.8 10*3/uL High 1.8-7.5 [facility] Comment on above: Performed By: #### L [id number] ####Natural Gas Inspector: HANS PAULSON ([id number])[facility] [place] ([facility])[address] Neutrophils/100 WBC (Bld) 78.0 % Normal 38.0-82.0 [facility] Comment on above: Performed By: #### L [id number] ####Natural Gas Inspector: HANS PAULSON ([id number])[facility] [place] ([facility])[address] NRBC 0.0 /100 WBCs Normal 0.0-2.0 [facility] Comment on above: Performed By: #### L [id number] ####Natural Gas Inspector: HANS PAULSON ([id number])[facility] [place] ([facility])[address] Platelet mean volume (Bld) [Entitic vol] 9.8 fL Normal 9.0-12.7 [facility] Comment on above: Performed By: #### L [id number] ####Natural Gas Inspector: HANS PAULSON ([id number])[facility] [place] ([facility])[address] Platelets (Bld) [#/Vol] 192 10*3/uL Normal 140-440 [facility] Comment on above: Performed By: #### L [id number] ####Natural Gas Inspector: HANS PAULSON ([id number])[facility] [place] ([facility])[address] [place] [address] [place] RBC (Bld) [#/Vol] 3.32 10*6/uL Low 3.80-5.20 [facility] Comment on above: Performed By: #### L [id number] ####Natural Gas Inspector: HANS PAULSON ([id number])[facility] [place] ([facility])[address] WBC (Bld) [#/Vol] 12.6 10*3/uL High 3.6-10.7 [facility] Comment on above: Performed By: #### L [id number] ####Natural Gas Inspector: HANS PAULSON ([id number])[facility] ([facility])[address] [place] [address] COMPLETE URINALYSIS WITH REF FAMILIA TO CULTUREon 08-08-2024 BACTERIA (#/HPF) IN URINE Negative Normal Negative [facility] Comment on above: Performed By: #### L [id number] ####Natural Gas Inspector: HANS PAULSON ([id number])[facility] [place] [address] BILIRUBIN, TOTAL PRESENCE IN URINE Negative Normal Negative [facility] Comment on above: Performed By: #### L [id number] ####Natural Gas Inspector: HANS PAULSON ([id number])[facility])[address] [place] [address] Clarity (U) Clear Normal Clear [facility] Comment on above: Performed By: #### L [id number] ####Natural Gas Inspector: HANS PAULSON ([id number])[facility] ([facility])[address] [place] [address] Color (U) Yellow Normal Lt. Yellow [facility] Comment on above: Performed By: #### L [id number] ####Natural Gas Inspector: HANS PAULSON ([id number])[facility] ([facility])[address] [place] [address] GLUCOSE (MG/DL) IN URINE Normal Normal Normal (<70 ) [facility] Comment on above: Performed By: #### L [id number] ####Natural Gas Inspector: HANS PAULSON ([id number])[facility])[address] [place] [address] HEMOGLOBIN PRESENCE IN URINE Negative Normal Negative [facility] Comment on above: Performed By: #### L [id number] ####Natural Gas Inspector: HANS ALCANTARESCOBAR ([id number])[facility] [place] ([facility])[address] Ketones Ql (U) Negative Normal Negative [facility] Comment on above: Performed By: #### L [id number] ####Natural Gas Inspector: HANS ALCANTARESCOBAR ([id number])[facility]A [facility] ([facility])[address] LEUKOCYTE ESTERASE PRESENCE IN URINE BY TEST STRIP Negative Normal Negative [facility] Comment on above: Performed By: #### L [id number] ####Natural Gas Inspector: HANS WALDROPKimESCOBAR ([id number])[facility] ([facility])[address] [place] [address] [place] MUCUS (#/LPF) IN URINE SEDIMENT Few Normal Negative [facility] Comment on above: Performed By: #### L [id number] ####Natural Gas Inspector: HANS ALCANTARESCOBAR ([id number])[facility] ([facility])[address] NITRITE PRESENCE IN URINE Negative Normal Negative [facility] Comment on above: Performed By: #### L [id number] ####Natural Gas Inspector: HANS ALCANTARESCOBAR ([id number])[facility] ([facility])[address] pH (U) 6.0 [pH] Normal 5.0-8.0 [facility] Comment on above: Performed By: #### L [id number] ####Natural Gas Inspector: HANS ALCANTARESCOBAR ([id number])[facility] ([facility])[address] Protein (U) [Mass/Vol] 20 mg/dL Abnormal Negative [facility] Comment on above: Performed By: #### L [id number] ####Natural Gas Inspector: HANS PAULSON ([id number])[facility] ([facility])[address] [place] [address] [place] RBC (#/HPF) IN URINE SEDIMENT 0-2 Normal 0-2 [facility] Comment on above: Performed By: #### L [id number] ####Natural Gas Inspector: HANS PAULSON ([id number])[facility]A [facility] CENTERMarisa ([facility])[address] [place] [address] Specific gravity (U) [Rel density] 1.026 Normal 1.005-1.030 [facility] Comment on above: Result Comment: KYM Gilmore COMMENTS:A specimen with <=10 WBC is not consistent with inflammation. This specimen will not reflex to a urine culture. Performed By: #### L [id number] ####Natural Gas Inspector: HANS PAULSON ([id number])[facility]ENTERNorma [facility] CENTERMarisa ([facility])[address] [place] [address] SQUAMOUS EPITHELIAL CELLS (#/HPF) IN URINE SEDIMENT 0-2 Normal 3-5 [facility] Comment on above: Performed By: #### L [id number] ####Natural Gas Inspector: HANS PAULSON ([id number])[facility]ERNorma [place] ([facility])[address] [place] [address] UROBILINOGEN (MG/DL) IN URINE Normal Normal Normal (0-1) [facility] Comment on above: Performed By: #### L [id number] ####Natural Gas Inspector: HANS PAULSON ([id number])[facility]ENTERNorma [facility] ([facility])[address] [place] [address] WBC (LEUKOCYTE) (#/HPF) IN URINE SEDIMENT 3-5 Normal 0-5 [facility] Comment on above: Performed By: #### L [id number] ####Natural Gas Inspector: HANS PAULSON ([id number])[facility])[address] [place] [address] Nursing Noteon 08-08-2024 Nursing Note Called report to [facility]. Pickup scheduled for 3:30pm. Normal [facility] Nursing Note Normal [facility] Progress Noteon 08-08-2024 Progress Note Normal [facility] Progress Note Patient chart review ed and being rounded on. Note to follow. 6:29 AM 08/08/24 Rena Beverly MD Division of Hospitalist Medicine [facility] Normal [facility] Urinalysis complete panel (U )Ordered By: Ziyad Ruiz on 08-08-2024 Bacteria LM.HPF (Urine sed) [#/Area] Negative Negative /HPF [facility] Bilirubin Ql (U) Negative Negative mg/dL [facility] Clarity (U) Clear Clear [facility] Color (U) Yellow Lt. Yellow [facility] Epithelial cells.squamous LM.HPF (Urine sed) [#/Area] 0-2 [facility] h Glucose Ql (U) Normal Normal (<70) mg/dL [facility] Hemoglobin Ql (U) Negative Negative mg/dL [facility] Interpretation and review of laboratory results Abnormal [facility] Ketones (U) [Mass/Vol] Negative Negat kenton mg/dL [facility] Leukocyte esterase Test strip Ql (U) Negative Negative Sandra/uL [facility] Mucus LM.HPF (Urine sed) [#/Area] Few Negative /LPF [facility] Nitrite Ql (U) Negative Negative [facility] th pH (U) 6.0 [pH] 5.0 - 8.0 pH [facility] Protein (U) [Mass/Vol] 20 mg/dL Abnormal Negative [facility] RBC LM.HPF (Urine sed) [#/Area] 0-2 [facility] Specific gravity (U) [Rel density] 1.026 1.005 - 1.030 [facility] Urobilinogen (U) [Mass/Vol] Normal Normal (0-1) mg/dL [facility] WBC LM.HPF (Urine sed) [#/Area] 3-5 [facility] A specimen with <=10 WBC is not consistent with inflammation. This specimen will not reflex to a urine culture. [facility] XR Chest 2 Viewson No significant change compared to the prior exam. Report Dictated on Electronically Signed By: Pawan Cordova MD Electronically Signed Date/Time: 08/08/2024 10:02 AM T [employer] SYSTEM Patient Name: GONZALO DELUCA : 1955 Exam Date/Time: 08/08/2024 09:53 Procedure: XR CHEST 2 VIEWS Ordering Provider: BEVERLY CANDICE Reason For Exam: hypoxia CHEST X-RAY PA/LATERAL CLINICAL INDICATION: hypoxia TECHNIQUE: Frontal and lateral plain films of the chest were obtained. COMPARISON: 07/30/2024 and 07/31/2024. FINDINGS: Cardiomediastinal silhouette: Stable size of the cardiac silhouette. Stable central venous port. Lungs: Severe COPD changes with extensive pulmonary scarring and stable density projecting over the left infrahilar region. No acute focal pulmonary consolidation. No definite pleural effusion or pneumothorax. Bones: Generalized osteopenia. Multilevel compression deformities of the thoracic spine with kyphosis of the spine similar to prior CT imaging. [facility] Pawan Cordova MD - 08/08/2024 Patient Name: GONZALO DELUCA : 1955 [facility]#: [id number] Exam Date/Time: 08/08/2024 09:53 Procedure: XR CHEST 2 VIEWS Ordering Provider: BEVERLY CANDICE Reason For Exam: hypoxia CHEST X-RAY PA/LATERAL CLINICAL INDICATION: hypoxia TECHNIQUE: Frontal and lateral plain films of the chest were obtained. COMPARISON: 07/30/2024 and 07/31/2024. FINDINGS: Cardiomediastinal silhouette: Stable size of the cardiac silhouette. Stable central venous port. Lungs: Severe COPD changes with extensive pulmonary scarring and stable density projecting over the left infrahilar region. No acute focal pulmonary consolidation. No definite pleural effusion or pneumothorax. Bones: Generalized osteopenia. Multilevel compression deformities of the thoracic spine with kyphosis of the spine similar to prior CT imaging. IMPRESSION: No significant change compared to the prior exam. Report Dictated on Electronically Signed By: Pawan Cordova MD Electronically Signed Date/Time: 08/08/2024 10:[address] [facility] Radiology Study observation (narrative) [facility] XR Chest 2 ViewsOrdered By: Pawan Cordova on 08-08-2024 [employer] Work Phone: [phone] 08-07-2024 [id number] Normal [facility] BASIC METABOLIC PANELon 07-20 Anion gap [Moles/Vol] 7 mmol/L Normal 3-13 [facility] Comment on above: Performed By: #### L [id number] ####Natural Gas Inspector: HANS PAULSON ([id number])[facility] [place] (SBHLAB)[address] Calcium [Mass/Vol] 9.3 mg/dL Normal 8.8-10.0 [facility] Comment on above: Performed By: #### L [id number] ####Natural Gas Inspector: HANS PAULSON ([id number])[facility] [place] (SBHLAB)[address] Chloride [Moles/Vol] 101 mmol/L Normal 98-107 [facility] Comment on above: Performed By: #### L [id number] ####Natural Gas Inspector: HANS PAULSON ([id number])[facility] [place] (SBHLAB)[address] CO2 [Moles/Vol] 33 mmol/L High 23-31 [facility] Comment on above: Performed By: #### L [id number] ####Natural Gas Inspector: HANS PAULSON ([id number])[facility] [place] (SBHLAB)[address] Creatinine [Mass/Vol] 0.59 mg/dL Normal 0.57-1.11 [facility] Comment on above: Performed By: #### L [id number] ####Natural Gas Inspector: HANS PAULSON ([id number])[facility] [place] (SBHLAB)[address] [place] [address] [place] GLOMERULAR FILTRATION RATE ML/MIN/1.73 SQ M.PREDICTED >90.0 Normal >60.0 [facility] Comment on above: Result Comment: Calc ulation based on the Chronic Kidney Disease Epidemiology Collaboration (CKD-EPI) equation refit without adjustment for race Performed By: #### L [id number] ####Natural Gas Inspector: HANS PAULSON ([id number])[facility]ENTERNorma [place] (SBHLAB)[address] Glucose [Mass/Vol] 124 mg/dL High 82-115 [facility] Comment on above: Performed By: #### L [id number] ####Natural Gas Inspector: HANS PAULSON ([id number])[facility]ERNorma [facility] CENTERMarisa (SBHLAB)[address] Potassium [Moles/Vol] 3.7 mmol/L Normal 3.5-5.1 [facility] Comment on above: Result Comment: [facility] potassium values may be up to 0.5 mmol/L lower than serum values. Performed By: #### L [id number] ####Natural Gas Inspector: HANS PAULSON ([id number])[facility]ENTERNorma [place]AM[place] (SBHLAB)[address] Sodium [Moles/Vol] 141 mmol/L Normal 136-145 [facility] Comment on above: Performed By: #### L [id number] ####Natural Gas Inspector: HANS PAULSON ([id number])[facility] (SBHLAB)[address] Urea nitrogen [Mass/Vol] 28 mg/dL High 9-23 [facility] Comment on above: Performed By: #### L [id number] ####Natural Gas Inspector: HANS PAULSON ([id number])[facility] (SBHLAB)[address] Basic metabolic 1998 panelon 08-07-2024 Anion gap [Moles/Vol] 7 mmol/L 3 - 13 mmol/L [facility] Calcium [Mass/Vol] 9.3 mg/dL 8.8 - 10. 0 mg/dL [facility] Chloride [Moles/Vol] 101 mmol/L 98 - 10 7 mmol/L [facility] CO2 [Moles/Vol] 33 mmol/L High 23 - 31 mmol/L [facility] Creatinine [Mass/Vol] 0.59 mg/dL 0.57 - 1.11 mg/dL [facility] GFR/1.73 sq M.predicted (S/P/Bld) [Vol rate/Area] - PINF [facility] Comment on above: Calculation based on the Chronic Kidney Disease Epidemiology Collaboration (CKD-EPI) equation refit without adjustment for race Glucose [Mass/Vol] 124 mg/dL High 82 - 115 mg/dL [facility] Interpretation and review of laboratory results Abnormal [facility] Potassium [Moles/Vol] 3.7 mmol/L 3.5 - 5.1 mmol/L [facility] Comment on above: Plasma potassium martín ues may be up to 0.5 mmol/L lower than serum values. Sodium [Moles/Vol] 141 mmol/L 136 - 145 mmol/L [facility] Urea nitrogen [Mass/Vol] 28 mg/dL High 9 - 23 mg/d L [facility] CBC W Auto Differential pane l (Bld)Ordered By: Crystal Dupont on 08-07-2024 Basophils (Bld) [#/Vol] 0 10*3/uL 0.0 - 0.2 10*3/uL [facility] Basophils/100 WBC (Bld) 0.2 % 0.0 - 2.0 % [facility] Eosinophils (Bld) [#/Vol] 0.3 10*3/uL 0.0 - 0.5 10*3/uL [facility] Eosinophils/100 WBC (Bld) 3.2 % 0.0 - 6.0 % [facility] Erythrocyte distribution width (RBC) [Ratio] 14.3 % 11.5 - 15.0 % [facility] Hematocrit (Bld) [Volume fraction] 33.8 % Low 35.0 - 47.0 % [facility] Hemoglobin (Bld) [Mass/Vol] 10.5 g/dL Low 11.7 - 16.0 g/dL [facility] Immature granulocytes (Bld) [#/Vol] 0 10*3/uL NINF - 0.1 10*3/uL [facility] Immature granulocytes/100 WBC (Bld) 0.1 % 0.0 - 2.0 % [facility] Interpretation and review of laboratory results Abnormal [facility] Lymphocytes (Bld) [#/Vol] 1.2 10*3/uL 1.0 - 4.3 10*3/uL [facility] Lymphocytes/100 WBC (Bld) 14.2 % Low 15.0 - 45.0 % [facility] MCH (RBC) [Entitic mass] 31.1 pg 26. 0 - 34.0 pg [facility] MCHC (RBC) [Mass/Vol] 31.1 % 30.5 - 36.0 % [facility] MCV (RBC) [Entitic vol] 100 fL High 77.0 - 99.0 fL [facility] Monocytes (Bld) [#/Vol] 0.8 10*3/uL 0.0 - 0.9 10*3/uL [facility] Monocytes/100 WBC (Bld) 9.6 % 5.0 - 13.0 % [facility] Neutrophils (Bld) [#/Vol] 6.3 10*3/uL 1.8 - 7.5 10*3/uL [facility] Neutrophils/100 WBC (Bld) 72.7 % 38.0 - 82.0 % [facility] Nucleated RBC/100 WBC (Bld) [Ratio] 0 % [facility] Platelet mean volume (Bld) [Entitic vol] 9.9 fL 9.0 - 12.7 fL [facility] Platelets (Bld) [#/Vol] 189 10*3/uL 140 - 440 10*3/uL [facility] RBC (Bld) [#/Vol] 3.38 10*6/uL Low 3.80 - 5.2 0 10*6/uL [facility] WBC (Bld) [#/Vol] 8.7 10*3/uL 3.6 - 10.7 10*3/uL [facility] CBC WITH AUTO DIFFERENTIALon 08-07-2024 Basophils (Bld) [#/Vol] 0.0 10*3/uL Normal 0.0-0.2 [facility] Comment on above: Performed By: #### L [id number] ####Natural Gas Inspector: HANS PAULSON ([id number])[facility]ENTERNorma RICKS ([facility])[address] [place] [address] Basophils/100 WBC (Bld) 0.2 % Normal 0.0-2.0 [facility] Comment on above: Performed By: #### L [id number] ####Natural Gas Inspector: HANS [id number])[facility] [place] (SBHLAB)[address] Eosinophils (Bld) [#/Vol] 0.3 10*3/uL Normal 0.0-0.5 [facility] Comment on above: Performed By: #### L [id number] ####Natural Gas Inspector: HANS PAULSON ([id number])[facility] [place] (SBHLAB)[address] Eosinophils/100 WBC (Bld) 3.2 % Normal 0.0-6.0 [facility] Comment on above: Performed By: #### L [id number] ####Natural Gas Inspector: HANS PAULSON ([id number])[facility] (SBHLAB)[address] [place] [address] Erythrocyte distribution width (RBC) [Ratio] 14.3 % Normal 11.5-15.0 [facility] Comment on above: Performed By: #### L [id number] ####Natural Gas Inspector: HANS PAULSON ([id number])[facility]A [facility] (SBHLAB)[address] [place] [address] Hematocrit (Bld) [Volume fraction] 33.8 % Low 35.0-47.0 [facility] Comment on above: Performed By: #### L [id number] ####Natural Gas Inspector: HANS PAULSON ([id number])[facility] (SBHLAB)[address] [place] [address] Hemoglobin (Bld) [Mass/Vol] 10.5 g/dL Low 11.7-16.0 [facility] Comment on above: Performed By: #### L [id number] ####Natural Gas Inspector: HANS PAULSON ([id number])[facility] [place] (SBHLAB)[address] IMMATURE GRANS % 0.1 % Normal 0.0-2.0 [facility] Comment on above: Performed By: #### L [id number] ####Natural Gas Inspector: HANS PAULSON ([id number])[facility] (SBHLAB)[address] IMMATURE GRANS ABSOLUTE 0.0 10*3/uL Normal <0.1 [facility] Comment on above: Performed By: #### L [id number] ####Natural Gas Inspector: HANS PAULSON ([id number])[facility]ENTERNorma [place] (SBHLAB)[address] Lymphocytes (Bld) [#/Vol] 1.2 10*3/uL Normal 1.0-4.3 [facility] Comment on above: Performed By: #### L [id number] ####Natural Gas Inspector: HANS PAULSON ([id number])[facility]ERNorma [facility] (SBHLAB)[address] Lymphocytes/100 WBC (Bld) 14.2 % Low 15.0-45.0 [facility] Comment on above: Performed By: #### L [id number] ####Natural Gas Inspector: HANS PAULSON ([id number])[facility]ENTERNorma [place] (SBHLAB)[address] MCH (RBC) [Entitic mass] 31.1 pg Normal 26.0-34.0 [facility] Comment on above: Performed By: #### L [id number] ####Natural Gas Inspector: HANS PAULSON ([id number])[facility]ERNorma [facility] (SBHLAB)[address] [place] [address] MCHC 31.1 % Normal 30.5-36.0 [facility] Comment on above: Performed By: #### L [id number] ####Natural Gas Inspector: HANS PAULSON ([id number])[facility]ENTERNorma [place] (SBHLAB)[address] MCV (RBC) [Entitic vol] 100.0 fL High 77.0-99.0 [facility] Comment on above: Performed By: #### L [id number] ####Natural Gas Inspector: HANS PAULSON ([id number])[facility] (SBHLAB)[address] Monocytes (Bld) [#/Vol] 0.8 10*3/uL Normal 0.0-0.9 [facility] Comment on above: Performed By: #### L [id number] ####Natural Gas Inspector: HANS ALCANTARESCOBAR ([id number])[facility] [place] (SBHLAB)[address] Monocytes/100 WBC (Bld) 9.6 % Normal 5.0-13.0 [facility] Comment on above: Performed By: #### L [id number] ####Natural Gas Inspector: HANS PAULSON ([id number])[facility] [place] (SBHLAB)[address] NEUTROPHILS ABSOLUTE 6.3 10*3/uL Normal 1.8-7.5 [facility] Comment on above: Performed By: #### L [id number] ####Natural Gas Inspector: HANS PAULSON ([id number])[facility] [place] (SBHLAB)[address] Neutrophils/100 WBC (Bld) 72.7 % Normal 38.0-82.0 [facility] Comment on above: Performed By: #### L [id number] ####Natural Gas Inspector: HANS ALCANTARESCOBAR ([id number])[facility] [place] (SBHLAB)[address] NRBC 0.0 /100 WBCs Normal 0.0-2.0 [facility] Comment on above: Performed By: #### L [id number] ####Natural Gas Inspector: HANS ALCANTARESCOBAR ([id number])[facility] [place] (SBHLAB)[address] Platelet mean volume (Bld) [Entitic vol] 9.9 fL Normal 9.0-12.7 [facility] Comment on above: Performed By: #### L [id number] ####Natural Gas Inspector: HANS PAULSON ([id number])[facility] [place] (SBHLAB)[address] Platelets (Bld) [#/Vol] 189 10*3/uL Normal 140-440 [facility] Comment on above: Performed By: #### L [id number] ####Natural Gas Inspector: HANS PAULSON ([id number])[facility]ERNorm[facility] [place] ([facility])[address] RBC (Bld) [#/Vol] 3.38 10*6/uL Low 3.80-5.20 [facility] Comment on above: Performed By: #### L [id number] ####Natural Gas Inspector: HANS PAULSON ([id number])[facility]ERNorma [facility] (SBHLAB)[address] WBC (Bld) [#/Vol] 8.7 10*3/uL Normal 3.6-10.7 [facility] Comment on above: Performed By: #### L [id number] ####Natural Gas Inspector: HANS PAULSON ([id number])[facility]ERNorma [facility] (SBHLAB)[address] [place] [address] Progress Noteon 08-07-2024 Progress Note Normal [facility] Progress Note Normal [facility] 30on 08-06-2024 30 Normal [facility] 30 Normal [facility] 30 Normal [facility] [id number] 08-06-2024 [id number] Normal [facility] [id number] Normal [facility] BASIC METABOLIC PANELon 05- Anion gap [Moles/Vol] 7 mmol/L Normal 3-13 [facility] Comment on above: Performed By: #### L [id number] ####Natural Gas Inspector: HANS PAULSON ([id number])[facility] (SB[facility]AB)[address] Calcium [Mass/Vol] 8.9 mg/dL Normal 8.8-10.0 [facility] Comment on above: Performed By: #### L [id number] ####Natural Gas Inspector: HANS PAULSON ([id number])[facility] [place] (SB[facility])[address] Chloride [Moles/Vol] 101 mmol/L Normal 98-107 [facility] Comment on above: Performed By: #### L [id number] ####Natural Gas Inspector: HANS LORENE ([id number])[facility] (SB[facility])[address] CO2 [Moles/Vol] 33 mmol/L High 23-31 [facility] Comment on above: Performed By: #### L [id number] ####Natural Gas Inspector: HANS LORENE ([id number])[facility] (SBHL[facility])[address] Creatinine [Mass/Vol] 0.56 mg/dL Low 0.57-1.11 [facility] Comment on above: Performed By: #### L [id number] ####Natural Gas Inspector: HANS WALDROPIVELISSE ([id number])[facility] (SBHLAB)[address] GLOMERULAR FILTRATION RATE ML/MIN/1.73 SQ M.PREDICTED >90.0 Normal >60.0 [facility] Comment on above: Result Comment: Calc ulation based on the Chronic Kidney Disease Epidemiology Collaboration (CKD-EPI) equation refit without adjustment for race Performed By: #### L [id number] ####Natural Gas Inspector: HANS PAULSON ([id number])[facility] ([facility])[address] Glucose [Mass/Vol] 93 mg/dL Normal 82-115 [facility] Comment on above: Performed By: #### L [id number] ####Natural Gas Inspector: HANS ALCANTARESCOBAR ([id number])[facility] (HLAB)[address] Potassium [Moles/Vol] 3.8 mmol/L Normal 3.5-5.1 [facility] Comment on above: Result Comment: [facility] potassium values may be up to 0.5 mmol/L lower than serum values. Performed By: #### L [id number] ####Natural Gas Inspector: HANS PAULSON ([id number])[facility] (SBHLAB)[address] [place] [address] Sodium [Moles/Vol] 141 mmol/L Normal 136-145 [facility] Comment on above: Performed By: #### L [id number] ####Natural Gas Inspector: HANS LORENE ([id number])[facility] (SBHLAB)[address] Urea nitrogen [Mass/Vol] 27 mg/dL High 9-23 [facility] Comment on above: Performed By: #### L [id number] ####Natural Gas Inspector: HANS PAULSON ([id number])[facility] (SBHLAB)[address] [place] [address] Basic metabolic 1998 panelon 08-06-2024 Anion gap [Moles/Vol] 7 mmol/L 3 - 13 mmol/L [facility] Calcium [Mass/Vol] 8.9 mg/dL 8.8 - 10. 0 mg/dL [facility] Chloride [Moles/Vol] 101 mmol/L 98 - 10 7 mmol/L [facility] CO2 [Moles/Vol] 33 mmol/L High 23 - 31 mmol/L [facility] Creatinine [Mass/Vol] 0.56 mg/dL Low 0.57 - 1.11 mg/dL [facility] GFR/1.73 sq M.predicted (S/P/Bld) [Vol rate/Area] - PINF [facility] Comment on above: Calculation based on the Chronic Kidney Disease Epidemiology Collaboration (CKD-EPI) equation refit without adjustment for race Glucose [Mass/Vol] 93 mg/dL 82 - 115 mg/dL [facility] Interpretation and review of laboratory results Abnormal [facility] Potassium [Moles/Vol] 3.8 mmol/L 3.5 - 5.1 mmol/L [facility] Comment on above: Plasma potassium martín ues may be up to 0.5 mmol/L lower than serum values. Sodium [Moles/Vol] 141 mmol/L 136 - 145 mmol/L [facility] Urea nitrogen [Mass/Vol] 27 mg/dL High 9 - 23 mg/d L [facility] CBC W Auto Differential pane l (Bld)Ordered By: Hakeem Cruz on 08-06-2024 Basophils (Bld) [#/Vol] 0.1 10*3/uL 0.0 - 0.2 10*3/uL [facility] Basophils/100 WBC (Bld) 0.6 % 0.0 - 2.0 % [facility] Eosinophils (Bld) [#/Vol] 0.3 10*3/uL 0.0 - 0.5 10*3/uL [facility] Eosinophils/100 WBC (Bld) 3.3 % 0.0 - 6.0 % [facility] Erythrocyte distribution width (RBC) [Ratio] 14 % 11.5 - 15.0 % [facility] Hematocrit (Bld) [Volume fraction] 35.3 % 35.0 - 47.0 % [facility] Hemoglobin (Bld) [Mass/Vol] 10.7 g/dL Low 11.7 - 16.0 g/dL [facility] Immature granulocytes (Bld) [#/Vol] 0 10*3/uL NINF - 0.1 10*3/uL [facility] Immature granulocytes/100 WBC (Bld) 0.4 % 0.0 - 2.0 % [facility] Interpretation and review of laboratory results Abnormal [facility] Lymphocytes (Bld) [#/Vol] 1.4 10*3/uL 1.0 - 4.3 10*3/uL [facility] Lymphocytes/100 WBC (Bld) 18.1 % 15.0 - 45.0 % [facility] MCH (RBC) [Entitic mass] 30.8 pg 26. 0 - 34.0 pg [facility] MCHC (RBC) [Mass/Vol] 30.3 % Low 30.5 - 36.0 % [facility] MCV (RBC) [Entitic vol] 101.7 fL High 77.0 - 99.0 fL [facility] Monocytes (Bld) [#/Vol] 0.8 10*3/uL 0.0 - 0.9 10*3/uL [facility] Monocytes/100 WBC (Bld) 9.6 % 5.0 - 13.0 % [facility] Neutrophils (Bld) [#/Vol] 5.3 10*3/uL 1.8 - 7.5 10*3/uL [facility] Neutrophils/100 WBC (Bld) 68 % 38.0 - 82.0 % [facility] Nucleated RBC/100 WBC (Bld) [Ratio] 0 % [facility] Platelet mean volume (Bld) [Entitic vol] 9.6 fL 9.0 - 12.7 fL [facility] Platelets (Bld) [#/Vol] 166 10*3/uL 140 - 440 10*3/uL [facility] RBC (Bld) [#/Vol] 3.47 10*6/uL Low 3.80 - 5.2 0 10*6/uL [facility] WBC (Bld) [#/Vol] 7.8 10*3/uL 3.6 - 10.7 10*3/uL [facility] CBC WITH AUTO DIFFERENTIALon 08-06-2024 Basophils (Bld) [#/Vol] 0.1 10*3/uL Normal 0.0-0.2 [facility] Comment on above: Performed By: #### L [id number] ####Natural Gas Inspector: HANS PAULSON ([id number])[facility]ERNorma [facility]ENTERSTEVEN (SBHLAB)[address] Basophils/100 WBC (Bld) 0.6 % Normal 0.0-2.0 [facility] Comment on above: Performed By: #### L [id number] ####Natural Gas Inspector: HANS PAULSON ([id number])[facility] CENTERSTEVEN (SBHLAB)[address] Eosinophils (Bld) [#/Vol] 0.3 10*3/uL Normal 0.0-0.5 [facility] Comment on above: Performed By: #### L [id number] ####Natural Gas Inspector: HANS PAULSON ([id number])[facility]A [place] (SBHLAB)[address] [place] [address] [place] Eosinophils/100 WBC (Bld) 3.3 % Normal 0.0-6.0 [facility] Comment on above: Performed By: #### L [id number] ####Natural Gas Inspector: HANS PAULSON ([id number])[facility] [place] (SBHLAB)[address] Erythrocyte distribution width (RBC) [Ratio] 14.0 % Normal 11.5-15.0 [facility] Comment on above: Performed By: #### L [id number] ####Natural Gas Inspector: HANS PAULSON ([id number])[facility] (SBHLAB)[address] Hematocrit (Bld) [Volume fraction] 35.3 % Normal 35.0-47.0 [facility] Comment on above: Performed By: #### L [id number] ####Natural Gas Inspector: HANS PAULSON ([id number])[facility] (SBAB)[address] Hemoglobin (Bld) [Mass/Vol] 10.7 g/dL Low 11.7-16.0 [facility] Comment on above: Performed By: #### L [id number] ####Natural Gas Inspector: HANS PAULSON ([id number])[facility] (SBHLAB)[address] IMMATURE GRANS % 0.4 % Normal 0.0-2.0 [facility] Comment on above: Performed By: #### L [id number] ####Natural Gas Inspector: HANS PAULSON ([id number])[facility] (SBHLAB)[address] IMMATURE GRANS ABSOLUTE 0.0 10*3/uL Normal <0.1 [facility] Comment on above: Performed By: #### L [id number] ####Natural Gas Inspector: HANS PAULSON ([id number])[facility] [place] (SBHLAB)155 [place] [address] [place] Lymphocytes (Bld) [#/Vol] 1.4 10*3/uL Normal 1.0-4.3 [facility] Comment on above: Performed By: #### L [id number] ####Natural Gas Inspector: HANS PAULSON ([id number])[facility] (SBHLAB)[address] Lymphocytes/100 WBC (Bld) 18.1 % Normal 15.0-45.0 [facility] Comment on above: Performed By: #### L [id number] ####Natural Gas Inspector: HANS PAULSON ([id number])[place] (SBHLAB)[address] MCH (RBC) [Entitic mass] 30.8 pg Normal 26.0-34.0 [facility] Comment on above: Performed By: #### L [id number] ####Natural Gas Inspector: HANS PAULSON ([id number])[facility]ERN[facility] (SBHLAB)[address] MCHC 30.3 % Low 30.5-36.0 [facility] Comment on above: Performed By: #### L [id number] ####Natural Gas Inspector: HANS PAULSON ([id number])[facility] (SBHLAB)[address] MCV (RBC) [Entitic vol] 101.7 fL High 77.0-99.0 [facility] Comment on above: Performed By: #### L [id number] ####Natural Gas Inspector: HANS PAULSON ([id number])[facility] (SBHLAB)[address] [place] [address] Monocytes (Bld) [#/Vol] 0.8 10*3/uL Normal 0.0-0.9 [facility] Comment on above: Performed By: #### L [id number] ####Natural Gas Inspector: HANS PAULSON ([id number])[facility] [place] (SBHLAB)[address] [place] [address] [place] Monocytes/100 WBC (Bld) 9.6 % Normal 5.0-13.0 [facility] Comment on above: Performed By: #### L [id number] ####Natural Gas Inspector: HANS PAULSON ([id number])[facility] (SBHLAB)[address] NEUTROPHILS ABSOLUTE 5.3 10*3/uL Normal 1.8-7.5 [facility] Comment on above: Performed By: #### L [id number] ####Natural Gas Inspector: HANS PAULSON ([id number])[facility] [place] (SBHLAB)[address] Neutrophils/100 WBC (Bld) 68.0 % Normal 38.0-82.0 [facility] Comment on above: Performed By: #### L [id number] ####Natural Gas Inspector: HANS PAULSON ([id number])[facility] [place] (SBHLAB)[address] NRBC 0.0 /100 WBCs Normal 0.0-2.0 [facility] Comment on above: Performed By: #### L [id number] ####Natural Gas Inspector: HANS PAULSON ([id number])[facility] [place] (SBHLAB)[address] Platelet mean volume (Bld) [Entitic vol] 9.6 fL Normal 9.0-12.7 [facility] Comment on above: Performed By: #### L [id number] ####Natural Gas Inspector: HANS PAULSON ([id number])[facility] [place] (SBHLAB)[address] Platelets (Bld) [#/Vol] 166 10*3/uL Normal 140-440 [facility] Comment on above: Performed By: #### L [id number] ####Natural Gas Inspector: HANS PAULSON ([id number])[facility] [place] (SBHLAB)[address] [place] [address] [place] RBC (Bld) [#/Vol] 3.47 10*6/uL Low 3.80-5.20 [facility] Comment on above: Performed By: #### L [id number] ####Natural Gas Inspector: HANS PAULSON ([id number])[facility] [place] (SBHLAB)[address] WBC (Bld) [#/Vol] 7.8 10*3/uL Normal 3.6-10.7 [facility] Comment on above: Performed By: #### L [id number] ####Natural Gas Inspector: HANS PAULSON ([id number])[facility] (SBHLAB)[address] Progress Noteon 08-06-2024 Progress Note Normal [facility] Progress [facility] Normal [facility] Progress Note Normal [facility] Progress Note Normal [facility] Progress Note Normal [facility] 30on 08-05-2024 30 Normal [facility] 30 Normal [facility] BASIC METABOLIC PANELon 07-19 Anion gap [Moles/Vol] 5 mmol/L Normal 3-13 [facility] Comment on above: Performed By: #### L [id number] ####Natural Gas Inspector: HANS PAULSON ([id number])[facility] (SBHLAB)[address] Calcium [Mass/Vol] 9.4 mg/dL Normal 8.8-10.0 [facility] Comment on above: Performed By: #### L [id number] ####Natural Gas Inspector: HANS PAULSON ([id number])[facility] (SBHLAB)[address] [place] [address] [place] Chloride [Moles/Vol] 100 mmol/L Normal 98-107 [facility] Comment on above: Performed By: #### L [id number] ####Natural Gas Inspector: HANS PAULSON ([id number])[facility] (SBHLAB)[address] [place] [address] [place] CO2 [Moles/Vol] 36 mmol/L High 23-31 [facility] Comment on above: Performed By: #### L [id number] ####Natural Gas Inspector: HANS PAULSON ([id number])[facility] (SBHLAB)[address] Creatinine [Mass/Vol] 0.57 mg/dL Normal 0.57-1.11 [facility] Comment on above: Performed By: #### L [id number] ####Natural Gas Inspector: HANS PAULSON ([id number])[facility]orm[facility] (HLAB)[address] GLOMERULAR FILTRATION RATE ML/MIN/1.73 SQ M.PREDICTED >90.0 Normal >60.0 [facility] Comment on above: Result Comment: Calc ulation based on the Chronic Kidney Disease Epidemiology Collaboration (CKD-EPI) equation refit without adjustment for race Performed By: #### L [id number] ####Natural Gas Inspector: HANS PAULSON ([id number])[facility] Glucose [Mass/Vol] 102 mg/dL Normal 82-115 [facility] Comment on above: Performed By: #### L [id number] ####Natural Gas Inspector: HANS PAULSON ([id number])[facility] [place] [address] [place] Potassium [Moles/Vol] 4.3 mmol/L Normal 3.5-5.1 [facility] Comment on above: Result Comment: [facility] potassium values may be up to 0.5 mmol/L lower than serum values. Performed By: #### L [id number] ####Natural Gas Inspector: HANS PAULSON ([id number])[facility] [place] [address] [place] Sodium [Moles/Vol] 141 mmol/L Normal 136-145 [facility] Comment on above: Performed By: #### L [id number] ####Natural Gas Inspector: HANS PAULSON ([id number])[facility] [place] [address] [place] Urea nitrogen [Mass/Vol] 25 mg/dL High 9-23 [facility] Comment on above: Performed By: #### L [id number] ####Natural Gas Inspector: HANS PAULSON ([id number])[facility] (SBHLAB)[address] [place] [address] Bacteria identified Aer cx N om (Lower resp)Ordered By: Joaquina Andrade on 08-05-2024 Gram Stain Result Few Epithelial cells per low power field Abnormal [facility] Gram Stain Result Many Polymorphonucle ar leukocytes per low power field Abnormal [facility] Gram Stain Result Positive Abnormal [facility] ealt Gram Stain Result Negative Abnormal [facility] Interpretation and review of laboratory results Abnormal [facility] Basic metabolic 1998 panelon 08-05-2024 Anion gap [Moles/Vol] 5 mmol/L 3 - 13 mmol/L [facility] Calcium [Mass/Vol] 9.4 mg/dL 8.8 - 10. 0 mg/dL [facility] Chloride [Moles/Vol] 100 mmol/L 98 - 10 7 mmol/L [facility] CO2 [Moles/Vol] 36 mmol/L High 23 - 31 mmol/L [facility] Creatinine [Mass/Vol] 0.57 mg/dL 0.57 - 1.11 mg/dL [facility] GFR/1.73 sq M.predicted (S/P/Bld) [Vol rate/Area] - PINF [facility] Comment on above: Calculation based on the Chronic Kidney Disease Epidemiology Collaboration (CKD-EPI) equation refit without adjustment for race Glucose [Mass/Vol] 102 mg/dL 82 - 115 mg/dL [facility] Interpretation and review of laboratory results Abnormal [facility] Potassium [Moles/Vol] 4.3 mmol/L 3.5 - 5.1 mmol/L [facility] Comment on above: Plasma potassium martín ues may be up to 0.5 mmol/L lower than serum values. Sodium [Moles/Vol] 141 mmol/L 136 - 145 mmol/L [facility] Urea nitrogen [Mass/Vol] 25 mg/dL High 9 - 23 mg/d L [facility] CBC W Auto Differential pane l (Bld)Ordered By: Yair Sanchez on 08-05-2024 Basophils (Bld) [#/Vol] 0 10*3/uL 0.0 - 0.2 10*3/uL [facility] Basophils/100 WBC (Bld) 0.3 % 0.0 - 2.0 % [facility] Eosinophils (Bld) [#/Vol] 0.1 10*3/uL 0.0 - 0.5 10*3/uL [facility] Eosinophils/100 WBC (Bld) 0.6 % 0.0 - 6.0 % [facility] Erythrocyte distribution width (RBC) [Ratio] 13.9 % 11.5 - 15.0 % [facility] Hematocrit (Bld) [Volume fraction] 38.5 % 35.0 - 47.0 % [facility] Hemoglobin (Bld) [Mass/Vol] 12 g/dL 11.7 - 16.0 g/dL [facility] Immature granulocytes (Bld) [#/Vol] 0 10*3/uL NINF - 0.1 10*3/uL [facility] Immature granulocytes/100 WBC (Bld) 0.2 % 0.0 - 2.0 % [facility] Interpretation and review of laboratory results Abnormal [facility] Lymphocytes (Bld) [#/Vol] 1.5 10*3/uL 1.0 - 4.3 10*3/uL [facility] Lymphocytes/100 WBC (Bld) 14.9 % Low 15.0 - 45.0 % [facility] MCH (RBC) [Entitic mass] 31.6 pg 26. 0 - 34.0 pg [facility] MCHC (RBC) [Mass/Vol] 31.2 % 30.5 - 36.0 % [facility] MCV (RBC) [Entitic vol] 101.3 fL High 77.0 - 99.0 fL [facility] Monocytes (Bld) [#/Vol] 1.2 10*3/uL High 0.0 - 0.9 10*3/uL [facility] Monocytes/100 WBC (Bld) 12 % 5.0 - 13.0 % [facility] Neutrophils (Bld) [#/Vol] 7.1 10*3/uL 1.8 - 7.5 10*3/uL [facility] Neutrophils/100 WBC (Bld) 72 % 38.0 - 82.0 % [facility] Nucleated RBC/100 WBC (Bld) [Ratio] 0 % [facility] Platelet mean volume (Bld) [Entitic vol] 9.8 fL 9.0 - 12.7 fL [facility] Platelets (Bld) [#/Vol] 221 10*3/uL 140 - 440 10*3/uL [facility] RBC (Bld) [#/Vol] 3.8 10*6/uL 3.80 - 5.2 0 10*6/uL [facility] WBC (Bld) [#/Vol] 9.9 10*3/uL 3.6 - 10.7 10*3/uL [facility] CBC WITH AUTO DIFFERENTIALon 08-05-2024 Basophils (Bld) [#/Vol] 0.0 10*3/uL Normal 0.0-0.2 [facility] Comment on above: Performed By: #### L [id number] ####Natural Gas Inspector: HANS PAULSON ([id number])[facility] [place] (SBAB)[address] [place] [address] Basophils/100 WBC (Bld) 0.3 % Normal 0.0-2.0 [facility] Comment on above: Performed By: #### L [id number] ####Natural Gas Inspector: HANS PAULSON ([id number])[facility] [place] (SBHLAB)[address] [place] [address] Eosinophils (Bld) [#/Vol] 0.1 10*3/uL Normal 0.0-0.5 [facility] Comment on above: Performed By: #### L [id number] ####Natural Gas Inspector: HANS PAULSON ([id number])[facility] [place] (SBHLAB)[address] [place] [address] Eosinophils/100 WBC (Bld) 0.6 % Normal 0.0-6.0 [facility] Comment on above: Performed By: #### L [id number] ####Natural Gas Inspector: HANS PAULSON ([id number])[facility] [place] (SBHLAB)[address] [place] [address] Erythrocyte distribution width (RBC) [Ratio] 13.9 % Normal 11.5-15.0 [facility] Comment on above: Performed By: #### L [id number] ####Natural Gas Inspector: HANS PAULSON ([id number])[facility] (SBHLAB)[address] Hematocrit (Bld) [Volume fraction] 38.5 % Normal 35.0-47.0 [facility] Comment on above: Performed By: #### L [id number] ####Natural Gas Inspector: HANS PAULSON ([id number])[facility] (SBHLAB)[address] Hemoglobin (Bld) [Mass/Vol] 12.0 g/dL Normal 11.7-16.0 [facility] Comment on above: Performed By: #### L [id number] ####Natural Gas Inspector: HANS PAULSON ([id number])[facility] IMMATURE GRANS % 0.2 % Normal 0.0-2.0 [facility] Comment on above: Performed By: #### L [id number] ####Natural Gas Inspector: HANS PAULSON ([id number])[facility])[address] IMMATURE GRANS ABSOLUTE 0.0 10*3/uL Normal <0.1 [facility] Comment on above: Performed By: #### L [id number] ####Natural Gas Inspector: HANS PAULSON ([id number])[facility])[address] [place] [address] Lymphocytes (Bld) [#/Vol] 1.5 10*3/uL Normal 1.0-4.3 [facility] Comment on above: Performed By: #### L [id number] ####Natural Gas Inspector: HANS PAULSON ([id number])[facility])[address] [place] [address] [place] Lymphocytes/100 WBC (Bld) 14.9 % Low 15.0-45.0 [facility] Comment on above: Performed By: #### L [id number] ####Natural Gas Inspector: HANS PAULSON ([id number])[facility])[address] MCH (RBC) [Entitic mass] 31.6 pg Normal 26.0-34.0 [facility] Comment on above: Performed By: #### L [id number] ####Natural Gas Inspector: HANS ALCANTARESCOBAR ([id number])[place] (SBHLAB)[address] MCHC 31.2 % Normal 30.5-36.0 [facility] Comment on above: Performed By: #### L [id number] ####Natural Gas Inspector: HANS PAULSON ([id number])[facility] [place] (SBHLAB)[address] MCV (RBC) [Entitic vol] 101.3 fL High 77.0-99.0 [facility] Comment on above: Performed By: #### L [id number] ####Natural Gas Inspector: HANS PAULSON ([id number])[facility] [place] (SBHLAB)[address] Monocytes (Bld) [#/Vol] 1.2 10*3/uL High 0.0-0.9 [facility] Comment on above: Performed By: #### L [id number] ####Natural Gas Inspector: HANS PAULSON ([id number])[facility]MNorma [place] (SBHLAB)[address] Monocytes/100 WBC (Bld) 12.0 % Normal 5.0-13.0 [facility] Comment on above: Performed By: #### L [id number] ####Natural Gas Inspector: HANS PAULSON ([id number])[facility] [place] (SBHLAB)[address] NEUTROPHILS ABSOLUTE 7.1 10*3/uL Normal 1.8-7.5 [facility] Comment on above: Performed By: #### L [id number] ####Natural Gas Inspector: HANS PAULSON ([id number])[facility] [place] (SBHLAB)[address] Neutrophils/100 WBC (Bld) 72.0 % Normal 38.0-82.0 [facility] Comment on above: Performed By: #### L [id number] ####Natural Gas Inspector: HANS PAULSON ([id number])[facility] [place] (SBHLAB)[address] NRBC 0.0 /100 WBCs Normal 0.0-2.0 [facility] Comment on above: Performed By: #### L [id number] ####Natural Gas Inspector: HANS PAULSON ([id number])[facility] [place] (SBHLAB)[address] Platelet mean volume (Bld) [Entitic vol] 9.8 fL Normal 9.0-12.7 [facility] Comment on above: Performed By: #### L [id number] ####Natural Gas Inspector: HANS PAULSON ([id number])[facility] [place] (SBHLAB)[address] [place] [address] [place] Platelets (Bld) [#/Vol] 221 10*3/uL Normal 140-440 [facility] Comment on above: Performed By: #### L [id number] ####Natural Gas Inspector: HANS PAULSON ([id number])[facility] [place] (SBHLAB)[address] [place] [address] [place] RBC (Bld) [#/Vol] 3.80 10*6/uL Normal 3.80-5.20 [facility] Comment on above: Performed By: #### L [id number] ####Natural Gas Inspector: HANS PAULSON ([id number])[facility] [place] (SBHLAB)[address] [place] [address] [place] WBC (Bld) [#/Vol] 9.9 10*3/uL Normal 3.6-10.7 [facility] Comment on above: Performed By: #### L [id number] ####Natural Gas Inspector: HANS PAULSON ([id number])[facility] [place] (SBHLAB)[address] Laboratory - Microbiology an d Antimicrobial susceptibilityOrdered By: Joaquina Andrade on 08-05-2024 Bacteria identified Aer cx Nom (Lower resp) Many respiratory linus present. [facility] Bacteria identified Aer cx Nom (Lower resp) Many Pseudomonas aeruginosa Abnormal [facility] Progress Noteon 08-05-2024 Progress Note Normal [facility] Progress Note Normal [facility] Progress Note Normal [facility] Progress Note Normal [facility] 30on 08-04-2024 30 Normal [facility] 30 Normal [facility] [id number] 08-04-2024 [id number] Normal [facility] [id number] Normal [facility] BASIC METABOLIC PANELon 07-19 Anion gap [Moles/Vol] 6 mmol/L Normal 3-13 [facility] Comment on above: Performed By: #### L [id number] ####Natural Gas Inspector: HANS PAULSON ([id number])[facility] (SBHLAB)[address] Calcium [Mass/Vol] 8.4 mg/dL Low 8.8-10.0 [facility] Comment on above: Performed By: #### L [id number] ####Natural Gas Inspector: HANS PAULSON ([id number])[facility] (SBHLAB)[address] [place] [address] [place] Chloride [Moles/Vol] 104 mmol/L Normal 98-107 [facility] Comment on above: Performed By: #### L [id number] ####Natural Gas Inspector: HANS PAULSON ([id number])[facility] (SBHLAB)[address] [place] [address] [place] CO2 [Moles/Vol] 32 mmol/L High 23-31 [facility] Comment on above: Performed By: #### L [id number] ####Natural Gas Inspector: HANS PAULSON ([id number])[facility] (SBHLAB)[address] [place] [address] [place] Creatinine [Mass/Vol] 0.55 mg/dL Low 0.57-1.11 [facility] Comment on above: Performed By: #### L [id number] ####Natural Gas Inspector: HANS PAULSON ([id number])[facility]ENTERNorma [facility]Mar[facility] ([facility])[address] [place] [address] GLOMERULAR FILTRATION RATE ML/MIN/1.73 SQ M.PREDICTED >90.0 Normal >60.0 [facility] Comment on above: Result Comment: Calc ulation based on the Chronic Kidney Disease Epidemiology Collaboration (CKD-EPI) equation refit without adjustment for race Performed By: #### L [id number] ####Natural Gas Inspector: HANS PAULSON ([id number])[facility]ENTERNorma [place] ([facility])[address] [place] [address] Glucose [Mass/Vol] 111 mg/dL Normal 82-115 [facility] Comment on above: Performed By: #### L [id number] ####Natural Gas Inspector: HANS PAULSON ([id number])[facility] ([facility])[address] [place] [address] Potassium [Moles/Vol] 4.2 mmol/L Normal 3.5-5.1 [facility] Comment on above: Result Comment: [facility] potassium values may be up to 0.5 mmol/L lower than serum values. Performed By: #### L [id number] ####Natural Gas Inspector: HANS PAULSON ([id number])[facility]ENTERNorma [facility]ST[facility]EN ([facility])[address] [place] [address] Sodium [Moles/Vol] 142 mmol/L Normal 136-145 [facility] Comment on above: Performed By: #### L [id number] ####Natural Gas Inspector: HANS PAULSON ([id number])[facility] ([facility])[address] Urea nitrogen [Mass/Vol] 26 mg/dL High 9-23 [facility] Comment on above: Performed By: #### L [id number] ####Natural Gas Inspector: HANS PAULSON ([id number])[facility] [place] (SBHLAB)[address] Basic metabolic 1998 panelon 08-04-2024 Anion gap [Moles/Vol] 6 mmol/L 3 - 13 mmol/L [facility] Calcium [Mass/Vol] 8.4 mg/dL Low 8.8 - 10. 0 mg/dL [facility] Chloride [Moles/Vol] 104 mmol/L 98 - 10 7 mmol/L [facility] CO2 [Moles/Vol] 32 mmol/L High 23 - 31 mmol/L [facility] Creatinine [Mass/Vol] 0.55 mg/dL Low 0.57 - 1.11 mg/dL [facility] GFR/1.73 sq M.predicted (S/P/Bld) [Vol rate/Area] - PINF [facility] Comment on above: Calculation based on the Chronic Kidney Disease Epidemiology Collaboration (CKD-EPI) equation refit without adjustment for race Glucose [Mass/Vol] 111 mg/dL 82 - 115 mg/dL [facility] Interpretation and review of laboratory results Abnormal [facility] Potassium [Moles/Vol] 4.2 mmol/L 3.5 - 5.1 mmol/L [facility] Comment on above: Plasma potassium martín ues may be up to 0.5 mmol/L lower than serum values. Sodium [Moles/Vol] 142 mmol/L 136 - 145 mmol/L [facility] Urea nitrogen [Mass/Vol] 26 mg/dL High 9 - 23 mg/d L [facility] CBC W Auto Differential pane l (Bld)on 08-04-2024 Basophils (Bld) [#/Vol] 0 10*3/uL 0.0 - 0.2 10*3/uL [facility] Basophils/100 WBC (Bld) 0.2 % 0.0 - 2.0 % [facility] Eosinophils (Bld) [#/Vol] 0 10*3/uL 0.0 - 0.5 10*3/uL [facility] Eosinophils/100 WBC (Bld) 0.4 % 0.0 - 6.0 % [facility] Erythrocyte distribution width (RBC) [Ratio] 13.8 % 11.5 - 15.0 % [facility] Hematocrit (Bld) [Volume fraction] 32.5 % Low 35.0 - 47.0 % [facility] Hemoglobin (Bld) [Mass/Vol] 10.2 g/dL Low 11.7 - 16.0 g/dL [facility] Immature granulocytes (Bld) [#/Vol] 0 10*3/uL NINF - 0.1 10*3/uL [facility] Immature granulocytes/100 WBC (Bld) 0.4 % 0.0 - 2.0 % [facility] Interpretation and review of laboratory results Abnormal [facility] Lymphocytes (Bld) [#/Vol] 1 10*3/uL 1.0 - 4.3 10*3/uL [facility] Lymphocytes/100 WBC (Bld) 11.8 % Low 15.0 - 45.0 % [facility] MCH (RBC) [Entitic mass] 31.6 pg 26. 0 - 34.0 pg [facility] MCHC (RBC) [Mass/Vol] 31.4 % 30.5 - 36.0 % [facility] MCV (RBC) [Entitic vol] 100.6 fL High 77.0 - 99.0 fL [facility] Monocytes (Bld) [#/Vol] 1 10*3/uL High 0.0 - 0.9 10*3/uL [facility] Monocytes/100 WBC (Bld) 11.6 % 5.0 - 13.0 % [facility] Neutrophils (Bld) [#/Vol] 6.2 10*3/uL 1.8 - 7.5 10*3/uL [facility] Neutrophils/100 WBC (Bld) 75.6 % 38.0 - 82.0 % [facility] Nucleated RBC/100 WBC (Bld) [Ratio] 0 % [facility] Platelet mean volume (Bld) [Entitic vol] 9.6 fL 9.0 - 12.7 fL [facility] Platelets (Bld) [#/Vol] 164 10*3/uL 140 - 440 10*3/uL [facility] [facility] RBC (Bld) [#/Vol] 3.23 10*6/uL Low 3.80 - 5.2 0 10*6/uL [facility] WBC (Bld) [#/Vol] 8.2 10*3/uL 3.6 - 10.7 10*3/uL [facility] CBC WITH AUTO DIFFERENTIALon 08-04-2024 Basophils (Bld) [#/Vol] 0.0 10*3/uL Normal 0.0-0.2 [facility] Comment on above: Performed By: #### L [id number] ####Natural Gas Inspector: HANS PAULSON ([id number])[facility] (SBHLAB)[address] Basophils/100 WBC (Bld) 0.2 % Normal 0.0-2.0 [facility] Comment on above: Performed By: #### L [id number] ####Natural Gas Inspector: HANS PAULSON ([id number])[facility] (SBHLAB)[address] Eosinophils (Bld) [#/Vol] 0.0 10*3/uL Normal 0.0-0.5 [facility] Comment on above: Performed By: #### L [id number] ####Natural Gas Inspector: HANS PAULSON ([id number])[facility] (SBHLAB)[address] Eosinophils/100 WBC (Bld) 0.4 % Normal 0.0-6.0 [facility] Comment on above: Performed By: #### L [id number] ####Natural Gas Inspector: HANS PAULSON ([id number])[facility] (SBHLAB)[address] [place] [address] Erythrocyte distribution width (RBC) [Ratio] 13.8 % Normal 11.5-15.0 [facility] Comment on above: Performed By: #### L [id number] ####Natural Gas Inspector: HANS PAULSON ([id number])[facility] (SBHLAB)[address] Hematocrit (Bld) [Volume fraction] 32.5 % Low 35.0-47.0 [facility] Comment on above: Performed By: #### L [id number] ####Natural Gas Inspector: HANS PAULSON ([id number])[facility] [place] (SBHLAB)[address] [place] [address] [place] Hemoglobin (Bld) [Mass/Vol] 10.2 g/dL Low 11.7-16.0 [facility] Comment on above: Performed By: #### L [id number] ####Natural Gas Inspector: HANS PAULSON ([id number])[facility] (SBHLAB)[address] IMMATURE GRANS % 0.4 % Normal 0.0-2.0 [facility] Comment on above: Performed By: #### L [id number] ####Natural Gas Inspector: HANS PAULSON ([id number])[facility] IMMATURE GRANS ABSOLUTE 0.0 10*3/uL Normal <0.1 [facility] Comment on above: Performed By: #### L [id number] ####Natural Gas Inspector: HANS PAULSON ([id number])[facility] [place] [address] Lymphocytes (Bld) [#/Vol] 1.0 10*3/uL Normal 1.0-4.3 [facility] Comment on above: Performed By: #### L [id number] ####Natural Gas Inspector: HANS PAULSON ([id number])[facility] [place] [address] Lymphocytes/100 WBC (Bld) 11.8 % Low 15.0-45.0 [facility] Comment on above: Performed By: #### L [id number] ####Natural Gas Inspector: HANS PAULSON ([id number])[facility] (SBHLAB)[address] [place] [address] MCH (RBC) [Entitic mass] 31.6 pg Normal 26.0-34.0 [facility] Comment on above: Performed By: #### L [id number] ####Natural Gas Inspector: HANS PAULSON ([id number])[facility] (SBAB)[address] MCHC 31.4 % Normal 30.5-36.0 [facility] Comment on above: Performed By: #### L [id number] ####Natural Gas Inspector: HANS ALCANTARESCOBAR ([id number])[facility] (SBHLAB)[address] MCV (RBC) [Entitic vol] 100.6 fL High 77.0-99.0 [facility] Comment on above: Performed By: #### L [id number] ####Natural Gas Inspector: HANS ALCANTARESCOBAR ([id number])[facility] (SBHLAB)[address] Monocytes (Bld) [#/Vol] 1.0 10*3/uL High 0.0-0.9 [facility] Comment on above: Performed By: #### L [id number] ####Natural Gas Inspector: HNAS WALDROPIVELISSE ([id number])[facility] [place] (SBHLAB)[address] Monocytes/100 WBC (Bld) 11.6 % Normal 5.0-13.0 [facility] Comment on above: Performed By: #### L [id number] ####Natural Gas Inspector: HANS ALCANTARESCOBAR ([id number])[facility] (SBHLAB)[address] NEUTROPHILS ABSOLUTE 6.2 10*3/uL Normal 1.8-7.5 [facility] Comment on above: Performed By: #### L [id number] ####Natural Gas Inspector: HANS ALCANTARESCOBAR ([id number])[facility] (SBHLAB)[address] Neutrophils/100 WBC (Bld) 75.6 % Normal 38.0-82.0 [facility] Comment on above: Performed By: #### L [id number] ####Natural Gas Inspector: HANS ALCANTARESCOBAR ([id number])[facility] (SBHLAB)[address] NRBC 0.0 /100 WBCs Normal 0.0-2.0 [facility] Comment on above: Performed By: #### L [id number] ####Natural Gas Inspector: HANS PAULSON ([id number])[facility] [place] (SBHLAB)[address] Platelet mean volume (Bld) [Entitic vol] 9.6 fL Normal 9.0-12.7 [facility] Comment on above: Performed By: #### L [id number] ####Natural Gas Inspector: HANS PAULSON ([id number])[facility] [place] (SBHLAB)[address] Platelets (Bld) [#/Vol] 164 10*3/uL Normal 140-440 [facility] Comment on above: Performed By: #### L [id number] ####Natural Gas Inspector: HANS PAULSON ([id number])[facility] [place] (SBHLAB)[address] RBC (Bld) [#/Vol] 3.23 10*6/uL Low 3.80-5.20 [facility] Comment on above: Performed By: #### L [id number] ####Natural Gas Inspector: HANS PAULSON ([id number])[facility] [place] (SB[facility]AB)[address] WBC (Bld) [#/Vol] 8.2 10*3/uL Normal 3.6-10.7 [facility] Comment on above: Performed By: #### L [id number] ####Natural Gas Inspector: HANS PAULSON ([id number])[facility] [place] (SBHLAB)[address] Progress Noteon 08-04-2024 Progress Note Normal [facility] Progress Note Normal [facility] Progress Note Normal [facility] Progress Note Nutrition note -received consult for poor jeri <12 . Jeri is 21 -already being followed by RDChristie Normal [facility] 30on 08-03-2024 30 Normal [facility] 30 Normal [facility] [id number] 08-03-2024 [id number] Tasked weekend case hardener to follow for pending auth to [facility]. [phone] will need to be completed at the time of discharge. custodial services manager to follow and assist as needed. Normal [facility] [id number] Sent updated notes t o [facility] via [facility] per TCC request. Await review and response regarding ability to accept. TCC notified. Normal [facility] [id number] Normal [facility] Progress Noteon 08-03-2024 Progress Note Normal [facility] Progress Note Normal [facility] Progress Note Normal [facility] Progress Note Normal [facility] Progress Note Normal [facility] Progress Note Normal [facility] Progress Note Normal [facility] Progress Note Normal [facility] 30on 08-02-2024 30 Normal [facility] 30 Normal [facility] [id number] 08-02-2024 [id number] Normal [facility] [id number] Normal [facility] Progress Noteon 08-02-2024 Progress Note Normal [facility] Progress Note Normal [facility] Progress Note Normal [facility] Progress Note Normal [facility] Progress Note Normal [facility] Progress Note Normal [facility] Progress Note Normal [facility] 30on 08-01-2024 30 Normal [facility] [id number] 08-01-2024 [id number] Normal [facility] Consulton 08-01-2024 Consult Normal [facility] PNEUMONIA PCR PANELon 2024 PNEUMONIA PCR PANEL Normal [facility] Comment on above: Performed By: #### L [id number], [id number] ####Natural Gas Inspector: AMELIE ELIZABETH ([id number])[facility] ([id number] [place] [address] Progress Noteon 08-01-2024 Progress Note Normal [facility] Progress Note Normal [facility] Progress Note Normal [facility] Progress Note Normal [facility] Progress Note Normal [facility] RESPIRATORY CULTURE AND STAI Non 08-01-2024 RESPIRATORY CULTURE AND STAIN Normal [facility] Comment on above: Performed By: #### L AB900, [id number] ####Natural Gas Inspector: AMELIE ELIZABETH ([id number])[facility] (SACLAB)[address] Respiratory pathogens DNA an d RNA panel MILANA+non-probe (Lower resp)Ordered By: Calvin Brown on 08-01-2024 Acinetobacter baumannii complex Not detected Not Detected [facility] Adenovirus Not detected Not Detected [facility] Chlamydia pneumoniae Not detected Not Detected [facility] Enterobacter cloacae complex Not detected Not Detected [facility] Escherichia coli Not detected Not Detected [facility] FLUAV RNA MILANA+non-probe Ql (Lower resp) Not detected Not Detected [facility] FLUBV RNA MILANA+non-probe Ql (Lower resp) Not detected Not Detected [facility] Haemophilus influenzae Not detected Not Detecte d [facility] Human Metapneumovirus Not detected Not Detected [facility] Human Rhinovirus/Enterovirus Not detected Not Detected [facility] Interpretation and review of laboratory results Abnormal [facility] Klebsiella (Enterobacter) aerogenes Not detected Not Detected [facility] ealt Klebsiella oxytoca Not detected Not Detected [facility] Klebsiella pneumoniae Not detected Not Detected [facility] Legionella pneumophila Not detected Not Detecte d [facility] Moraxella catarrhalis Detected Abnormal Not Detected [facility] Mycoplasma pneumoniae Not detected Not Detected [facility] Parainfluenza virus Not detected Not Detected [facility] Proteus spp Not detected Not Detected [facility] lt Pseudomonas aeruginosa Detected Abnormal Not Detected [facility] RSV RNA MILANA+probe Ql (Resp) Not detected Not Detected [facility] S. agalactiae Org specific cx Ql (Vag fld) Detected Abnormal Not Detected [facility] SARS-CoV-2 (COVID-19) RNA MILANA+non-probe Ql (Nph) Not detected Not Detected [facility] SARS-CoV-2 (COVID-19) RNA MILANA+probe Ql (Unsp spec) Methodology: Multiplex PCR This panel does not test for SARS-CoV-2 (Covid-19). The following antimicrobial resistance gene is reported if the appropriate organism is detected: mecA. The following antimicrobial resistance genes are reported if detected and the appropriate organisms are detected: CTX-M, IMP, KPC, NDM, OXA-48-like, and VIM. [facility] Serratia marcescens Not detected Not Detected S [facility] Staphylococcus aureus Not detected Not Detected [facility] Streptococcus pneumoniae Not detected Not Detec tommy [facility] Streptococcus pyogenes Not detected Not Detecte d [facility] [id number] 07-31-2024 [id number] Desk Maker following case for Discharge Needs. Normal [facility] [id number] 07-31-2024 [id number] Normal [facility] [id number] Normal [facility] CRP [Mass/Vol]on 07-31-2024 Interpretation and review of laboratory results Normal [facility] CT Abdomen and Pelvis WO and W contrast Medardo 07-31-2024 1. New wedge-shaped subpleural airspace opacity in the left lower lobe is most likely either focal pneumonia or a lung infarct. Neoplasm is unlikely, but follow-up to resolution is recommended. 2. No acute findings in the abdomen or pelvis. 3. Multiple chronic osteoporotic compression fractures in the thoracic and lumbar spine. 4. Severe pulmonary emphysema. Report Dictated on Electronically Signed By: Brando Tejada MD Electronically Signed Date/Time: 07/31/2024 4:14 PM [facility] 1955 [id number] Exam Date/Time: 07/31/2024 15:25 Procedure: CT CHEST ABDOMEN PELVIS W CONTRAST Ordering Provider: SERNA DANIEL Reason For Exam: unexplained weight loss EXAMINATION: CT CHEST ABDOMEN PELVIS W CONTRAST CLINICAL HISTORY: unexplained weight loss COMPARISON: 10/16/2023 TECHNIQUE: Contiguous axial images were obtained through the chest abdomen and pelvis from the level of the thoracic inlet through the pubic symphysis following administration of intravenous contrast. Dose reduction was employed with automated exposure control. FINDINGS: Cardiovasculature: Heart size is normal. Left upper extremity PICC line with tip in the SVC. Normal caliber thoracic aorta. No central pulmonary emboli. Mediastinum/Pericardiu m: Small amount of pericardial fluid, similar to the prior. Lymph Nodes: No thoracic lymphadenopathy is evident Pleura: Unremarkable Central Airways: No airway nodules. Lungs: Severe diffuse emphysematous changes bilaterally. There is a new peripheral wedge-shaped airspace opacity posteriorly in the left lower lobe. A few tiny centrilobular nodules are also noted in both lower lobes. No other sites of airspace consolidation. Hepatobiliary: No suspicious hepatic lesions. The gallbladder is contracted. Pancreas: Unremarkable Spleen: Unremarkable Adrenal Glands: Unremarkable Kidneys, ureters, and bladder: No calculi or hydroureteronephrosis. Abdominal and pelvic vasculature: Unremarkable GI tract: No evidence of obstruction. The appendix is not visualized. Peritoneum and retroperitoneum: No free fluid or free air is noted. Lymph Nodes: No abdominal or pelvic lymphadenopathy is evident. Pelvis: Unremarkable Visualized musculoskeletal structures: Remote ORIF of the left hip. Chronic osteoporotic compression fractures of the T6-T9, T11, and L2-L4 vertebral bodies. No destructive bone lesion or acute fractures. [facility] Brando Tejada M D - 07/31/2024 Patient Name: GONZALO DELUCA : 1955 [facility]#: [id number] Exam Date/Time: 07/31/2024 15:25 Procedure: CT CHEST ABDOMEN PELVIS W CONTRAST Ordering Provider: SERNA DANIEL Reason For Exam: unexplained weight loss EXAMINATION: CT CHEST ABDOMEN PELVIS W CONTRAST CLINICAL HISTORY: unexplained weight loss COMPARISON: 10/16/2023 TECHNIQUE: Contiguous axial images were obtained through the chest abdomen and pelvis from the level of the thoracic inlet through the pubic symphysis following administration of intravenous contrast. Dose reduction was employed with automated exposure control. FINDINGS: Cardiovasculature: Heart size is normal. Left upper extremity PICC line with tip in the SVC. Normal caliber thoracic aorta. No central pulmonary emboli. Mediastinum/Pericardiu m: Small amount of pericardial fluid, similar to the prior. Lymph Nodes: No thoracic lymphadenopathy is evident Pleura: Unremarkable Central Airways: No airway nodules. Lungs: Severe diffuse emphysematous changes bilaterally. There is a new peripheral wedge-shaped airspace opacity posteriorly in the left lower lobe. A few tiny centrilobular nodules are also noted in both lower lobes. No other sites of airspace consolidation. Hepatobiliary: No suspicious hepatic lesions. The gallbladder is contracted. Pancreas: Unremarkable Spleen: Unremarkable Adrenal Glands: Unremarkable Kidneys, ureters, and bladder: No calculi or hydroureteronephrosis. Abdominal and pelvic vasculature: Unremarkable GI tract: No evidence of obstruction. The appendix is not visualized. Peritoneum and retroperitoneum: No free fluid or free air is noted. Lymph Nodes: No abdominal or pelvic lymphadenopathy is evident. Pelvis: Unremarkable Visualized musculoskeletal structures: Remote ORIF of the left hip. Chronic osteoporotic compression fractures of the T6-T9, T11, and L2-L4 vertebral bodies. No destructive bone lesion or acute fractures. IMPRESSION: 1. New wedge-shaped subpleural airspace opacity in the left lower lobe is most likely either focal pneumonia or a lung infarct. Neoplasm is unlikely, but follow-up to resolution is recommended. 2. No acute findings in the abdomen or pelvis. 3. Multiple chronic osteoporotic compression fractures in the thoracic and lumbar spine. 4. Severe pulmonary emphysema. Report Dictated on Electronically Signed By: Brando Tejada MD Electronically Signed Date/Time: 07/31/2024 4:14 PM EDT [facility] Radiology Study observation (narrative) [facility] CT Abdomen and Pelvis WO and W contrast IVOrdered By: Brando Tejada on 07-31-2024 [facility] Work Phone: CT CHEST ABDOMEN PELVIS W CO NTRASTon 07-31-2024 CT CHEST ABDOMEN PELVIS W CONTRAST Normal [facility] Consulton 07-31-2024 Consult Normal [facility] Consult Normal [facility] Consult Normal [facility] Consult Normal [facility] Laboratory - Chemistry and C hemistry - challengeon 07-31-2024 TSH Qn 0.28 m[IU]/L Low [facility] Procalcitonin [Mass/Vol] 0.03 ng/mL NICHOLAS F - 0.07 ng/mL [facility] CRP [Mass/Vol] 1.4 mg/L NINF - 5.0 mg/L [facility] Procalcitonin [Mass/Vol]on 0 07-31-2024 Interpretation and review of laboratory results Normal [facility] PCT <0.50 = Low risk of severe sepsis and/or septic shock. PCT >2.00 = High risk of severe sepsis and/or septic shock. [facility] Progress Noteon 07-31-2024 Progress Note Normal [facility] Progress Note Normal [facility] Progress Note Normal [facility] Progress Note Normal [facility] Progress Note Normal [facility] Progress Note Normal [facility] RESPIRATORY PATHOGENS PANEL BY PCRon 07-31-2024 RESPIRATORY PATHOGENS PANEL BY PCR Normal [facility] Comment on above: Performed By: #### L [id number] ####Natural Gas Inspector: AMELIE ELIZABETH ([id number])[facility] ([address] Respiratory pathogens DNA an d RNA panel MILANA+non-probe (Nph)on 07-31-2024 Adenovirus Not detected Not Detected [facility] B. pertussis DNA MILANA+probe Ql (Unsp spec) Not detected Not Detected [facility] ealt Bordetella parapertussis Not detected Not Detec tommy [facility] Chlamydia pneumoniae Not detected Not Detected [facility] Coronavirus 229E Not detected Not Detected [facility] Coronavirus HKU1 Not detected Not Detected [facility] Coronavirus NL63 Not detected Not Detected [facility] Coronavirus OC43 Not detected Not Detected [facility] FLUAV RNA MILANA+non-probe Ql (Nph) Not detected Not Detected [facility] FLUBV RNA MILANA+non-probe Ql (Nph) Not detected Not Detected [facility] Human Metapneumovirus Not detected Not Detected [facility] Human Rhinovirus/Enterovirus Not detected Not Detected [facility] Interpretation and review of laboratory results Normal [facility] Mycoplasma pneumoniae Not detected Not Detected [facility] Parainfluenza 1 Not detected Not Detected [facility] Parainfluenza 2 Not detected Not Detected [facility] Parainfluenza 3 Not detected Not Detected [facility] Parainfluenza 4 Not detected Not Detected [facility] Respiratory Syncytial Virus Not detected Not Detected [facility] SARS-CoV-2 (COVID-19) RNA MILANA+non-probe Ql (Nph) Not detected Not Detected [facility] Methodology: Multipl ex PCR [facility] TSH Qnon 07-31-2024 Interpretation and review of laboratory results Abnormal [facility] BASIC METABOLIC PANELon 05- Anion gap [Moles/Vol] 4 mmol/L Normal 3-13 [facility] Comment on above: Performed By: #### L AB69, LAB15, RYQ766, LAB99, LAB67, NGY169, LAB20, XZG981, [id number] ####Natural Gas Inspector: HANS PAULSON ([id number])[facility] Calcium [Mass/Vol] 8.8 mg/dL Normal 8.8-10.0 [facility] Comment on above: Performed By: #### L AB69, LAB15, RHR761, LAB99, LAB67, TXI373, LAB20, ZDD018, [id number] ####Natural Gas Inspector: HANS PAULSON ([id number])[facility] (SBAB)[address] Chloride [Moles/Vol] 103 mmol/L Normal 98-107 [facility] Comment on above: Performed By: #### L AB69, LAB15, PDS308, LAB99, LAB67, QMG045, LAB20, PPI318, [id number] ####Natural Gas Inspector: HANS PAULSON ([id number])[facility] (SBHLAB)[address] [place] [address] [place] CO2 [Moles/Vol] 37 mmol/L High 23-31 [facility] Comment on above: Performed By: #### L AB69, LAB15, ECI495, LAB99, LAB67, ZWE523, LAB20, XDL294, [id number] ####Natural Gas Inspector: HANS PAULSON ([id number])[facility] ([facility])[address] Creatinine [Mass/Vol] 0.63 mg/dL Normal 0.57-1.11 [facility] Comment on above: Performed By: #### L AB69, LAB15, ESD728, LAB99, LAB67, XSW484, LAB20, HCC644, [id number] ####Natural Gas Inspector: HANS PAULSON ([id number])[facility] ([facility])[address] GLOMERULAR FILTRATION RATE ML/MIN/1.73 SQ M.PREDICTED >90.0 Normal >60.0 [facility] Comment on above: Result Comment: Calc ulation based on the Chronic Kidney Disease Epidemiology Collaboration (CKD-EPI) equation refit without adjustment for race Performed By: #### L AB69, LAB15, DQT702, LAB99, LAB67, DAS065, LAB20, QAM692, [id number] ####Natural Gas Inspector: HANS PAULSON ([id number])[facility] ([facility])[address] [place] [address] Glucose [Mass/Vol] 80 mg/dL Low 82-115 [facility] Comment on above: Performed By: #### L AB69, LAB15, WZL268, LAB99, LAB67, IPH394, LAB20, WEV760, [id number] ####Natural Gas Inspector: HANS PAULSON ([id number])[facility] ([facility])[address] [place] [address] Potassium [Moles/Vol] 5.0 mmol/L Normal 3.5-5.1 [facility] Comment on above: Result Comment: [facility] potassium values may be up to 0.5 mmol/L lower than serum values. Performed By: #### L AB69, LAB15, ZVH665, LAB99, LAB67, LTP039, LAB20, NMM799, [id number] ####Natural Gas Inspector: HANS PAULSON ([id number])[facility] ([facility])[address] Sodium [Moles/Vol] 144 mmol/L Normal 136-145 [facility] Comment on above: Performed By: #### L AB69, LAB15, IUH389, LAB99, LAB67, KFH074, LAB20, VZM583, [id number] ####Natural Gas Inspector: HANS PAULSON ([id number])[facility] ([facility])[address] Urea nitrogen [Mass/Vol] 16 mg/dL Normal 9-23 [facility] [facility] Comment on above: Performed By: #### L AB69, LAB15, [id number], LAB99, LAB67, CUG460, LAB20, [id number], [id number] ####Natural Gas Inspector: HANS PAULSON ([id number])[facility] ([facility])[address] [place] [address] Basic metabolic 1998 panelon 07-30-2024 Anion gap [Moles/Vol] 4 mmol/L 3 - 13 mmol/L [facility] Calcium [Mass/Vol] 8.8 mg/dL 8.8 - 10. 0 mg/dL [facility] Chloride [Moles/Vol] 103 mmol/L 98 - 10 7 mmol/L [facility] CO2 [Moles/Vol] 37 mmol/L High 23 - 31 mmol/L [facility] Creatinine [Mass/Vol] 0.63 mg/dL 0.57 - 1.11 mg/dL [facility] GFR/1.73 sq M.predicted (S/P/Bld) [Vol rate/Area] - PINF [facility] Comment on above: Calculation based on the Chronic Kidney Disease Epidemiology Collaboration (CKD-EPI) equation refit without adjustment for race Glucose [Mass/Vol] 80 mg/dL Low 82 - 115 mg/dL [facility] Potassium [Moles/Vol] 5 mmol/L 3.5 - 5.1 mmol/L [facility] Comment on above: Plasma potassium martín ues may be up to 0.5 mmol/L lower than serum values. Sodium [Moles/Vol] 144 mmol/L 136 - 145 mmol/L [facility] Urea nitrogen [Mass/Vol] 16 mg/dL 9 - 23 mg/d L [facility] C-REACTIVE PROTEINon 025 CRP [Mass/Vol] 1.4 mg/L Normal <5.0 [facility] Comment on above: Performed By: #### L AB69, LAB15, [id number], LAB99, LAB67, [id number], LAB20, [id number], [id number] ####Natural Gas Inspector: HANS PAULSON ([id number])[facility] ([facility])[address] [place] [address] CBC W Auto Differential pane l (Bld)Ordered By: Eh Alves on 07-30-2024 Basophils (Bld) [#/Vol] 0 10*3/uL 0.0 - 0.2 10*3/uL [facility] Basophils/100 WBC (Bld) 0.4 % 0.0 - 2.0 % [facility] Eosinophils (Bld) [#/Vol] 0.2 10*3/uL 0.0 - 0.5 10*3/uL [facility] Eosinophils/100 WBC (Bld) 2.7 % 0.0 - 6.0 % [facility] Erythrocyte distribution width (RBC) [Ratio] 13.4 % 11.5 - 15.0 % [facility] Hematocrit (Bld) [Volume fraction] 37 % 35.0 - 47.0 % [facility] Hemoglobin (Bld) [Mass/Vol] 11.2 g/dL Low 11.7 - 16.0 g/dL [facility] Immature granulocytes (Bld) [#/Vol] 0 10*3/uL NINF - 0.1 10*3/uL [facility] Immature granulocytes/100 WBC (Bld) 0.3 % 0.0 - 2.0 % [facility] Interpretation and review of laboratory results Abnormal [facility] Lymphocytes (Bld) [#/Vol] 1 10*3/uL 1.0 - 4.3 10*3/uL [facility] Lymphocytes/100 WBC (Bld) 10.7 % Low 15.0 - 45.0 % [facility] MCH (RBC) [Entitic mass] 31.3 pg 26. 0 - 34.0 pg [facility] MCHC (RBC) [Mass/Vol] 30.3 % Low 30.5 - 36.0 % [facility] MCV (RBC) [Entitic vol] 103.4 fL High 77.0 - 99.0 fL [facility] Monocytes (Bld) [#/Vol] 0.5 10*3/uL 0.0 - 0.9 10*3/uL [facility] Monocytes/100 WBC (Bld) 5.5 % 5.0 - 13.0 % [facility] Neutrophils (Bld) [#/Vol] 7.2 10*3/uL 1.8 - 7.5 10*3/uL [facility] Neutrophils/100 WBC (Bld) 80.4 % 38.0 - 82.0 % [facility] Nucleated RBC/100 WBC (Bld) [Ratio] 0 % [facility] Platelet mean volume (Bld) [Entitic vol] 9.5 fL 9.0 - 12.7 fL [facility] Platelets (Bld) [#/Vol] 225 10*3/uL 140 - 440 10*3/uL [facility] RBC (Bld) [#/Vol] 3.58 10*6/uL Low 3.80 - 5.2 0 10*6/uL [facility] WBC (Bld) [#/Vol] 8.9 10*3/uL 3.6 - 10.7 10*3/uL [facility] CBC WITH AUTO DIFFERENTIALon 07-30-2024 Basophils (Bld) [#/Vol] 0.0 10*3/uL Normal 0.0-0.2 [facility] Comment on above: Performed By: #### L [id number] ####Natural Gas Inspector: HANS PAULSON ([id number])[facility] ([facility])[address] [place] [address] Basophils/100 WBC (Bld) 0.4 % Normal 0.0-2.0 [facility] Comment on above: Performed By: #### L [id number] ####Natural Gas Inspector: HANS PAULSON ([id number])[facility] ([facility])[address] Eosinophils (Bld) [#/Vol] 0.2 10*3/uL Normal 0.0-0.5 [facility] Comment on above: Performed By: #### L [id number] ####Natural Gas Inspector: HANS PAULSON ([id number])[facility] (SBHLAB)[address] Eosinophils/100 WBC (Bld) 2.7 % Normal 0.0-6.0 [facility] Comment on above: Performed By: #### L [id number] ####Natural Gas Inspector: HANS ALCANTARESCOBAR ([id number])[facility] ([facility])[address] Erythrocyte distribution width (RBC) [Ratio] 13.4 % Normal 11.5-15.0 [facility] Comment on above: Performed By: #### L [id number] ####Natural Gas Inspector: HANS PAULSON ([id number])[facility] Hematocrit (Bld) [Volume fraction] 37.0 % Normal 35.0-47.0 [facility] Comment on above: Performed By: #### L [id number] ####Natural Gas Inspector: HANS PAULSON ([id number])[facility] ([facility])[address] Hemoglobin (Bld) [Mass/Vol] 11.2 g/dL Low 11.7-16.0 [facility] Comment on above: Performed By: #### L [id number] ####Natural Gas Inspector: HANS PAULSON ([id number])[facility] ([facility])[address] IMMATURE GRANS % 0.3 % Normal 0.0-2.0 [facility] Comment on above: Performed By: #### L [id number] ####Natural Gas Inspector: HANS PAULSON ([id number])[facility] ([facility])[address] IMMATURE GRANS ABSOLUTE 0.0 10*3/uL Normal <0.1 [facility] Comment on above: Performed By: #### L [id number] ####Natural Gas Inspector: HANS PAULSON ([id number])[facility] ([facility])[address] Lymphocytes (Bld) [#/Vol] 1.0 10*3/uL Normal 1.0-4.3 [facility] Comment on above: Performed By: #### L [id number] ####Natural Gas Inspector: HANS ALCANTARESCOBAR ([id number])[facility] ([facility])[address] Lymphocytes/100 WBC (Bld) 10.7 % Low 15.0-45.0 [facility] Comment on above: Performed By: #### L [id number] ####Natural Gas Inspector: HANS PAULSON ([id number])[facility] [place] ([facility])[address] MCH (RBC) [Entitic mass] 31.3 pg Normal 26.0-34.0 [facility] Comment on above: Performed By: #### L [id number] ####Natural Gas Inspector: HANS PAULSON ([id number])[facility] [place] ([facility])[address] MCHC 30.3 % Low 30.5-36.0 [facility] Comment on above: Performed By: #### L [id number] ####Natural Gas Inspector: HANS PAULSON ([id number])[facility] ([facility])[address] [place] [address] MCV (RBC) [Entitic vol] 103.4 fL High 77.0-99.0 [facility] Comment on above: Performed By: #### L [id number] ####Natural Gas Inspector: HANS PAULSON ([id number])[facility] [place] ([facility])[address] Monocytes (Bld) [#/Vol] 0.5 10*3/uL Normal 0.0-0.9 [facility] Comment on above: Performed By: #### L [id number] ####Natural Gas Inspector: HANS PAULSON ([id number])[facility] [place] ([facility])[address] Monocytes/100 WBC (Bld) 5.5 % Normal 5.0-13.0 [facility] Comment on above: Performed By: #### L [id number] ####Natural Gas Inspector: HANS PAULSON ([id number])[facility] ([facility])[address] NEUTROPHILS ABSOLUTE 7.2 10*3/uL Normal 1.8-7.5 [facility] Comment on above: Performed By: #### L [id number] ####Natural Gas Inspector: HANS PAULSON ([id number])[facility] [place] ([facility])[address] Neutrophils/100 WBC (Bld) 80.4 % Normal 38.0-82.0 [facility] Comment on above: Performed By: #### L [id number] ####Natural Gas Inspector: HANS PAULSON ([id number])[facility] [place] ([facility])[address] NRBC 0.0 /100 WBCs Normal 0.0-2.0 [facility] Comment on above: Performed By: #### L [id number] ####Natural Gas Inspector: HANS PAULSON ([id number])[facility] [place] ([facility])[address] Platelet mean volume (Bld) [Entitic vol] 9.5 fL Normal 9.0-12.7 [facility] Comment on above: Performed By: #### L [id number] ####Natural Gas Inspector: HANS PAULSON ([id number])[facility] [place] ([facility])[address] [place] [address] [place] Platelets (Bld) [#/Vol] 225 10*3/uL Normal 140-440 [facility] Comment on above: Performed By: #### L [id number] ####Natural Gas Inspector: HANS PAULSON ([id number])[facility] [place] ([facility])[address] [place] [address] [place] RBC (Bld) [#/Vol] 3.58 10*6/uL Low 3.80-5.20 [facility] Comment on above: Performed By: #### L [id number] ####Natural Gas Inspector: HANS PAULSON ([id number])[facility] ([facility]AB)[address] WBC (Bld) [#/Vol] 8.9 10*3/uL Normal 3.6-10.7 [facility] Comment on above: Performed By: #### L [id number] ####Natural Gas Inspector: HANS PAULSON ([id number])[facility] ([facility]AB)[address] CNOVon 07-30-2024 CNOV Office Visit (FAMDNA ) GONZALO DELUCA ([id number]) 1955 Date Time Provider Department 07/30/24 3:00 PM HERMINIA CASE During your visit today, we recorded the following information about you: Temperature Pulse Blood pressure Weight 98.4 degrees 106/minute 120/78 40.6 kg Height 1.641 m Herminia Case MD 07/30/2024 4:33 PM Signed 07/30/2024 Recording using Miroi software for draft documentation of the visit was discussed with the patient/authorized financial sales representative; all questions welcomed and answered. Patient/authorized financial sales representative agreed to proceed HPI: Gonzalo is a 68-year-old female with a history of COPD, presenting with dyspnea and significant weight loss, accompanied by her son who is providing additional history. Dyspnea: - Chronic dyspnea, no acute worsening today. - Currently using a portable oxygen concentrator ; home oxygen set at 3.5 L/min. - Home SpO2 levels typically range from 90-93% but satting 79-81% here on oxygen. - Reports constant cough and production of "nasty looking crap." - Denies fever. - History of vaping. Weight Loss: - Significant weight loss since December 2022, with current weight at 89 lbs, down from 137 lbs. - Reports decreased appetite, often forcing herself to eat. - Consumes one meal per day, supplemented with 2-3 nutritional shakes (260 calories each) occasionally. - Experiences dyspnea while eating, leading to reduced intake. - Son reports she rarely leaves her room and often cancels appointments requiring travel. Depression: - History of depression, currently on multiple medications. - Denies feeling depressed but acknowledges difficulty breathing while eating. No other concerns or complaints today. PAST MEDICAL HISTORY Diagnosis Date COPD (chronic obstructive pulmonary disease) (HCC) DDD (degenerative disc disease), lumbar Encounter for chronic pain management Major depression, recurrent, chronic (HCC) Osteoporosis Pulmonary nodule, right 2015 PAST SURGICAL HISTORY Procedure Laterality Date CYSTOSCOPY 01/12/2017 CYSTOSCOPY 02/11/2017 EYE SURGERY HX Right 1994 detached retina HIP SURGERY HX Left 10/2022 ORIF for fracture TUBAL LIGATION HX 1992 FAMILY HISTORY Problem Relation Age of Onset Breast Cancer Mother 65 other (lung cancer) Father Breast Cancer Sister 62 No Known Problems Brother other (negative genetic testing for breast CA) Daughter Social History Tobacco Use Smoking status: Former Current packs/day: 0.00 Average packs/day: 1.5 packs/day for 69.0 years (103.5 ttl pk-yrs) Types: Cigarettes Start date: 1971 Quit date: 2018 Years since quittin.3 Smokeless tobacco: Never Tobacco comments: vaping intermittently Vaping Use Vaping status: Never Used Substance Use Topics Alcohol use: No Drug use: No Current Outpatient Medications on File Prior to Visit Medication Sig oxyCODONE-acetaminophe n (PERCOCET) 5-325 mg tablet Take 1 tablet by mouth every 6 hours as needed for pain for up to 30 days. buPROPion XL (WELLBUTRIN XL) 150 mg 24 hr tablet TAKE 1 TABLET BY MOUTH EVERY DAY cyclobenzaprine (FLEXERIL) 5 mg tablet Take 1 tablet by mouth every 12 hours. mirtazapine (REMERON) 30 mg tablet Take 1 tablet by mouth daily at bedtime. fluticasone-salmeterol (ADVAIR, WIXELA) 250-50 mcg/dose inhaler Inhale 1 Puff as instructed two times a day. RINSE AND GARGLE MOUTH WITH WATER AFTER EACH USE. PARoxetine (PAXIL) 40 mg tablet TAKE 1 TABLET BY MOUTH EVERY DAY QUEtiapine (SEROQUEL) 100 mg tablet Take 2 tablets by mouth at bedtime as needed. alendronate (FOSAMAX) 70 mg tablet TAKE 1 TABLET BY MOUTH ONE TIME A WEEK. tiotropium bromide (SPIRIVA RESPIMAT) 2.5 mcg/actuation inhaler INHALE 2 PUFFS BY MOUTH ONCE DAILY DIRECTED fluticasone (FLONASE) 50 mcg/actuation nasal spray spray 2 sprays into each nostril every day montelukast (SINGULAIR) 10 mg tablet Take 10 mg by mouth daily at bedtime. Nebulizers Use as directed. albuterol (PROVENTIL) 2.5 mg /3 mL (0.083 %) nebulizer solution INHALE 3 ML VIA NEBULIZER EVERY 4 HOURS NEEDED FOR WHEEZE OR FOR SHORTNESS OF BREATH predniSONE (DELTASONE) 20 mg tablet 2 tabs daily x 4 days, then 1 tab daily x 4 days, then 1/2 tab daily x 4 days (Patient not taking: Reported on 07/30/2024) albuterol HFA (PROVENTIL HFA, VENTOLIN HFA) 90 mcg/actuation inhaler Inhale 2 Puffs as instructed every 4 hours as needed for wheezing/shortness of breath. atorvastatin (LIPITOR) 40 mg tablet TAKE 1 TABLET BY MOUTH EVERY DAY AT NIGHT (Patient not taking: Reported on 07/30/2024) No current facility-administered medications on file prior to visit. Review of Systems: Constitutional: (+) weakness, (+) weight loss, (-) fever Respiratory: (+) dyspnea, (+) cough, (+) phlegm Gastrointestinal: (+) decreased appetite Musculoskeletal: (+) elbow pain Psychiatric: ( (more content not included)... Normal [facility] COMPLETE URINALYSIS WITH REF FAMILIA TO CULTURE 07-30-2024 AMORPHOUS CRYSTALS (#/HPF) IN URINE Many Abnormal Negative [facility] Comment on above: Performed By: #### L [id number] ####Natural Gas Inspector: HANS PAULSON ([id number])[facility] ([facility]AB)[address] BACTERIA (#/HPF) IN URINE Negative Normal Negative [facility] Comment on above: Performed By: #### L [id number] ####Natural Gas Inspector: HANS PAULSON ([id number])[facility] ([facility])[address] BILIRUBIN, TOTAL PRESENCE IN URINE Negative Normal Negative [facility] Comment on above: Performed By: #### L [id number] ####Natural Gas Inspector: HANS PAULSON ([id number])[facility] ([facility])[address] Clarity (U) Turbid Abnormal Clear [facility] Comment on above: Performed By: #### L [id number] ####Natural Gas Inspector: HANS PAULSON ([id number])[facility] ([facility])[address] Color (U) Yellow Normal Lt. Yellow [facility] Comment on above: Performed By: #### L [id number] ####Natural Gas Inspector: HANS PAULSON ([id number])[facility] ([facility])[address] GLUCOSE (MG/DL) IN URINE Normal Normal Normal (<70 ) [facility] Comment on above: Performed By: #### L [id number] ####Natural Gas Inspector: HANS PAULSON ([id number])[facility] ([facility])[address] HEMOGLOBIN PRESENCE IN URINE Negative Normal Negative [facility] Comment on above: Performed By: #### L [id number] ####Natural Gas Inspector: HANS PAULSON ([id number])[facility] ([facility])[address] HYALINE CASTS (#/LPF) IN URINE SEDIMENT BY MICROSCOPY 0-2 Abnormal Negative [facility] Comment on above: Performed By: #### L [id number] ####Natural Gas Inspector: HANS PAULSON ([id number])[facility] ([facility])[address] Ketones Ql (U) Negative Normal Negative [facility] Comment on above: Performed By: #### L [id number] ####Natural Gas Inspector: HANS PAULSON ([id number])[facility] ([facility])[address] LEUKOCYTE ESTERASE PRESENCE IN URINE BY TEST STRIP 25 Sandra/uL Abnormal Negative [facility] Comment on above: Performed By: #### L [id number] ####Natural Gas Inspector: HANS PAULSON ([id number])[facility] ([facility])[address] [place] [address] [place] MUCUS (#/LPF) IN URINE SEDIMENT Few Normal Negative [facility] Comment on above: Performed By: #### L [id number] ####Natural Gas Inspector: HANS PAULSON ([id number])[facility] NITRITE PRESENCE IN URINE Negative Normal Negative [facility] Comment on above: Performed By: #### L [id number] ####Natural Gas Inspector: HANS PAULSON ([id number])[facility] [place] [address] pH (U) 7.5 [pH] Normal 5.0-8.0 [facility] Comment on above: Performed By: #### L [id number] ####Natural Gas Inspector: HANS PAULSON ([id number])[facility] Protein (U) [Mass/Vol] 10 mg/dL Abnormal Negative [facility] Comment on above: Performed By: #### L [id number] ####Natural Gas Inspector: HANS PAULSON ([id number])[facility] [place] [address] [place] RBC (#/HPF) IN URINE SEDIMENT 0-2 Normal 0-2 [facility] Comment on above: Performed By: #### L [id number] ####Natural Gas Inspector: HANS PAULSON ([id number])[facility] ([facility])[address] [place] [address] Specific gravity (U) [Rel density] 1.023 Normal 1.005-1.030 [facility] Comment on above: Result Comment: KYM Gilmore COMMENTS:A specimen with <=10 WBC is not consistent with inflammation. This specimen will not reflex to a urine culture. Performed By: #### L [id number] ####Natural Gas Inspector: HANS PAULSON ([id number])[facility] ([facility])[address] [place] [address] SQUAMOUS EPITHELIAL CELLS (#/HPF) IN URINE SEDIMENT 0-2 Normal 3-5 [facility] Comment on above: Performed By: #### L [id number] ####Natural Gas Inspector: HANS PAULSON ([id number])[facility] [place] [address] UROBILINOGEN (MG/DL) IN URINE Normal Normal Normal (0-1) [facility] Comment on above: Performed By: #### L [id number] ####Natural Gas Inspector: HANS PAULSON ([id number])[facility] ([facility])[address] [place] [address] WBC (LEUKOCYTE) (#/HPF) IN URINE SEDIMENT 3-5 Normal 0-5 [facility] Comment on above: Performed By: #### L [id number] ####Natural Gas Inspector: HANS PAULSON ([id number])[facility] [place] [address] Cobalamin (Vitamin B12) [Mas s/Vol]on 07-30-2024 Interpretation and review of laboratory results Normal [facility] ECG 12-LEADon 07-30-2024 ECG 12-LEAD IMPRESSION: Sinus rhythm Left axis deviation Electronically Signed On 07-30-2024 21:23:27 EDT by Evelio Wills [facility] ED Provider Noteon ED Provider Note Normal [facility] FOLATEon 07-30-2024 FOLATE RESULT 5.2 ng/mL Low 7.0-31.4 [facility] Comment on above: Performed By: #### L AB69, LAB15, QYZ169, LAB99, LAB67, WQE022, LAB20, UDS725, [id number] ####Natural Gas Inspector: HANS PAULSON ([id number])[facility] ([facility])[address] [place] [address] [place] Folate [Mass/Vol]on 07-31-19 Interpretation and review of laboratory results Abnormal [facility] HEPATIC FUNCTION PANELon Albumin [Mass/Vol] 3.0 g/dL Low 3.4-4.8 [facility] Comment on above: Performed By: #### L AB69, LAB15, MNI056, LAB99, LAB67, PPN570, LAB20, ZLM420, [id number] ####Natural Gas Inspector: HANS PAULSON ([id number])[facility] ([facility])[address] [place] [address] [place] ALP [Catalytic activity/Vol] 97 U/L Normal 40-150 [facility] Comment on above: Performed By: #### L AB69, LAB15, PGI047, LAB99, LAB67, LJU778, LAB20, RWU693, [id number] ####Natural Gas Inspector: HANS PAULSON ([id number])[facility] ([facility])[address] [place] [address] [place] ALT [Catalytic activity/Vol] 10 U/L Normal <30 [facility] Comment on above: Performed By: #### L AB69, LAB15, PQV499, LAB99, LAB67, DGA988, LAB20, LGX064, [id number] ####Natural Gas Inspector: HANS PAULSON ([id number])[facility] ([facility])[address] [place] [address] [place] AST [Catalytic activity/Vol] 21 U/L Normal <34 [facility] Comment on above: Performed By: #### L AB69, LAB15, WWV128, LAB99, LAB67, PMI335, LAB20, RZG376, [id number] ####Natural Gas Inspector: HANS PAULSON ([id number])[facility] ([facility])[address] [place] [address] Bilirubin [Mass/Vol] 0.2 mg/dL Normal <1.2 [facility] Comment on above: Performed By: #### L AB69, LAB15, IGI213, LAB99, LAB67, SCW258, LAB20, OJC304, [id number] ####Natural Gas Inspector: HANS PAULSON ([id number])[facility] [place] [address] Bilirubin.indirect [Mass/Vol] 0.1 mg/dL Normal <0.5 [facility] Comment on above: Performed By: #### L AB69, LAB15, JVT643, LAB99, LAB67, KFI753, LAB20, XIG397, [id number] ####Natural Gas Inspector: HANS PAULSON ([id number])[facility] [place] [address] Protein [Mass/Vol] 6.5 g/dL Normal 6.4-8.3 [facility] Comment on above: Result Comment: Seru m protein values are higher than plasma values. Samples from recumbent persons are lower by up to 0.5 g/dL as compared to ambulatory persons. After 60 years values are lower by up to 0.2 g/dL. Performed By: #### L AB69, LAB15, KYG497, LAB99, LAB67, CLM843, LAB20, DRN435, [id number] ####Natural Gas Inspector: HANS PAULSON ([id number])[facility] [place] [address] Hepatic function 2000 panelo n 07-30-2024 Albumin [Mass/Vol] 3 g/dL Low 3.4 - 4.8 g/dL [facility] ALP [Catalytic activity/Vol] 97 U/L 40 - 150 U/L [facility] ALT [Catalytic activity/Vol] 10 U/L NINF - 30 U/L [facility] AST [Catalytic activity/Vol] 21 U/L NINF - 34 U/L [facility] Bilirubin [Mass/Vol] 0.2 mg/dL NINF - 1.2 mg/dL [facility] Bilirubin.conjugated [Mass/Vol] 0.1 mg/dL NINF - 0.5 mg/dL [facility] Protein [Mass/Vol] 6.5 g/dL 6.4 - 8.3 g/dL [facility] Comment on above: Serum protein values are higher than plasma values. Samples from recumbent persons are lower by up to 0.5 g/dL as compared to ambulatory persons. After 60 years values are lower by up to 0.2 g/dL. LIPASEon 07-30-2024 Lipase [Catalytic activity/Vol] 18 U/L Normal <55 [facility] Comment on above: Performed By: #### L AB69, LAB15, XDL048, LAB99, LAB67, VQE753, LAB20, NWM176, [id number] ####Natural Gas Inspector: HANS PAULSON ([id number])[facility] [place] [address] Laboratory - Chemistry and C hemistry - challengeon 07-30-2024 Folate [Mass/Vol] 5.2 ng/mL Low 7.0 - 31.4 ng/mL [facility] Cobalamin (Vitamin B12) [Mass/Vol] 639 pg/mL 213 - 816 pg/mL [facility] Lipase [Catalytic activity/Vol] 18 U/L NINF - 55 U/L [facility] Magnesium [Mass/Vol] 1.9 mg/dL 1.6 - 2 .6 mg/dL [facility] MAGNESIUMon 07-30-2024 Magnesium [Mass/Vol] 1.9 mg/dL Normal 1.6-2.6 [facility] Comment on above: Result Comment: KYM Gilmore COMMENTS:Higher values can be expected in females during menses. Performed By: #### L AB69, LAB15, CDK037, LAB99, LAB67, [id number], LAB20, [id number], [id number] ####Natural Gas Inspector: HANS PAULSON ([id number])[facility] CAN[facility]ER CENTERNorma RICKS (SBHLAB)[address] Magnesium [Mass/Vol]on 07-30 Higher values can be expected in females during menses. [facility] No Panel InformationOrdered By: Evelio Sterling on 07-30-[address] [place] [address] [facility] Work Phone: MI Interval 137 ms [facility] Work Phone: QRS [place] -35 degrees [facility] Work Phone: QRSD Interval 99 ms [facility] Work Phone: QT Interval 350 ms [facility] Work Phone: QTC Interval [address] [facility] Work Phone: T Wave [place] [address] [facility] Work Phone: [facility] Work Phone: No Panel Informationon 07-30 Sinus rhythm Left axis deviation Electronically Signed On 07-30-2024 21:23:27 EDT by Evelio Reyez DO - 07/30/2024 IMPRESSION: Sinus rhythm Left axis deviation Electronically Signed On 07-30-2024 21:23:27 EDT by Evelio Sterling [facility] Interpretation and review of laboratory results Abnormal [facility] Interpretation and review of laboratory results Normal [facility] Luis E Keating DO 07/30/2024 9:53 PM Splint Application Performed by: Luis E Keating DO Authorized by: Luis E Keating DO Consent: Consent obtained: Verbal Consent given by: Patient Risks, benefits, and alternatives were discussed: yes Risks discussed: Pain, numbness and swelling Alternatives discussed: Delayed treatment and referral [place] protocol: Patient identity confirmed: Verbally with patient Pre-procedure details: Distal neurologic exam: Normal Distal perfusion: distal pulses strong and brisk capillary refill Procedure details: Location: Elbow Elbow location: L elbow Strapping: no Splint type: Sugar tong and long arm Supplies: Fiberglass Attestation: Splint applied and adjusted personally by me Post-procedure details: Distal neurologic exam: Normal Distal perfusion: distal pulses strong Procedure completion: Tolerated well, no immediate complications Post-procedure imaging: not applicable [facility] PROCALCITONIN TESTon 025 PROCALCITONIN 0.03 ng/mL Normal <0.07 [facility] Comment on above: Result Comment: KYM R COMMENTS:PCT <0.50 = Low risk of severe sepsis and/or septic shock.PCT >2.00 = High risk of severe sepsis and/or septic shock. Performed By: #### L AB69, LAB15, VWN522, LAB99, LAB67, GJA874, LAB20, BCB304, [id number] ####Natural Gas Inspector: HANS PAULSON ([id number])[facility] [place] [address] THYROID STIMULATING HORMONEo n 07-30-2024 THYROID STIMULATING HORMONE 0.28 uIU/mL Low 0.35-4.94 [facility] Comment on above: Performed By: #### L AB69, LAB15, UOZ235, LAB99, LAB67, LIQ897, LAB20, IPQ135, [id number] ####Natural Gas Inspector: HANS PAULSON ([id number])[facility] [place] [address] Urinalysis complete panel (U )on 07-30-2024 Amorphous Crystals, Urine Many Abnormal Negative /HPF [facility] Bacteria LM.HPF (Urine sed) [#/Area] Negative Negative /HPF [facility] Bilirubin Ql (U) Negative Negative mg/dL [facility] Clarity (U) Turbid Abnormal Clear [facility] Color (U) Yellow Lt. Yellow [facility] Epithelial cells.squamous LM.HPF (Urine sed) [#/Area] 0-2 [facility] Glucose Ql (U) Normal Normal (<70) mg/dL [facility] Hemoglobin Ql (U) Negative Negative mg/dL [facility] Hyaline casts Auto (Urine sed) [#/Area] 0-2 Abnormal Negative /LPF [facility] Interpretation and review of laboratory results Abnormal [facility] Ketones (U) [Mass/Vol] Negative Negat kenton mg/dL [facility] Leukocyte esterase Test strip Ql (U) 25 Abnormal Negative Sandra/uL [facility] Mucus LM.HPF (Urine sed) [#/Area] Few Negative /LPF [facility] Nitrite Ql (U) Negative Negative [facility] th pH (U) 7.5 [pH] 5.0 - 8.0 pH [facility] Protein (U) [Mass/Vol] 10 mg/dL Abnormal Negative [facility] RBC LM.HPF (Urine sed) [#/Area] 0-2 [facility] Specific gravity (U) [Rel density] 1.023 1.005 - 1.030 [facility] Urobilinogen (U) [Mass/Vol] Normal Normal (0-1) mg/dL [facility] WBC LM.HPF (Urine sed) [#/Area] 3-5 [facility] A specimen with <=10 WBC is not consistent with inflammation. This specimen will not reflex to a urine culture. [facility] VITAMIN B12on 07-30-2024 Cobalamin (Vitamin B12) [Mass/Vol] 639 pg/mL Normal 213-816 [facility] Comment on above: Performed By: #### L AB69, LAB15, QUP012, LAB99, LAB67, IZP740, LAB20, GEU189, [id number] ####Natural Gas Inspector: HANS PAULSON ([id number])[facility] [place] [address] Vital signsOrdered By: Evelio Sterling on 07-30-2024 Heart rate 95 /min bpm [facility] Work Phone: XR Chest Single viewon 07-30 No acute cardiopulmonary abnormality identified. Chronic appearing lung changes. Report Dictated on Electronically Signed By: Honorio Andino MD Electronically Signed Date/Time: 07/30/2024 5:42 PM [facility] [employer] [facility] Patient Name: GONZALO DELUCA : 1955 Exam Date/Time: 07/30/2024 17:32 Procedure: XR CHEST 1 VIEW Ordering Provider: KEATING VISHNU Reason For Exam: sob EXAMINATION: XR chest AP. EXAM DATE & TIME: 07/30/2024 5:32 PM EDT INDICATION: sob ADDITIONAL INFORMATION: 68-year-old female with shortness of breath presents for evaluation COMPARISON: Chest x-ray dated 09/19/2023 TECHNIQUE: Frontal view of the chest was obtained. FINDINGS: Lines/support devices: Left chest port terminates in the region of the SVC. Cardiomediastinal silhouette: Within normal limits. Lungs/pleura: Chronic interstitial coarsening is seen. There is also bibasilar scarring/atelectasis. No focal consolidation, pleural effusion or pneumothorax. Osseous structures: Degenerative changes of the spine and shoulders are seen. No acute osseous abnormality is demonstrated. Bones are osteopenic. Other findings: None. [facility] Honorio Andino MD - 07/30/2024 Patient Name: GONZALO DELUCA : 1955 [facility]#: [id number] Exam Date/Time: 07/30/2024 17:32 Procedure: XR CHEST 1 VIEW Ordering Provider: KEATING VISHNU Reason For Exam: sob EXAMINATION: XR chest AP. EXAM DATE & TIME: 07/30/2024 5:32 PM EDT INDICATION: sob ADDITIONAL INFORMATION: 68-year-old female with shortness of breath presents for evaluation COMPARISON: Chest x-ray dated 09/19/2023 TECHNIQUE: Frontal view of the chest was obtained. FINDINGS: Lines/support devices: Left chest port terminates in the region of the SVC. Cardiomediastinal silhouette: Within normal limits. Lungs/pleura: Chronic interstitial coarsening is seen. There is also bibasilar scarring/atelectasis. No focal consolidation, pleural effusion or pneumothorax. Osseous structures: Degenerative changes of the spine and shoulders are seen. No acute osseous abnormality is demonstrated. Bones are osteopenic. Other findings: None. IMPRESSION: No acute cardiopulmonary abnormality identified. Chronic appearing lung changes. Report Dictated on Electronically Signed By: Honorio Andino MD Electronically Signed Date/Time: 07/30/2024 5:42 PM EDT [facility] Radiology Study observation (narrative) [facility] XR Elbow - left 2 Viewson Acute, obliquely oriented, slightly displaced and impacted fracture through the supracondylar region of the left elbow with associated soft tissue swelling. Report Dictated on Electronically Signed By: Honorio Andino MD Electronically Signed Date/Time: 07/30/2024 5:46 PM EDT [facility] 1955 [id number] Exam Date/Time: 07/30/2024 17:32 Procedure: XR ELBOW 1-2 VIEWS LEFT Ordering Provider: KEATING VISHNU Reason For Exam: fall; deformity EXAMINATION: XR left elbow. EXAM DATE & TIME: 07/30/2024 5:32 PM EDT INDICATION: fall; deformity ADDITIONAL INFORMATION: 68-year-old female status post fall with deformity of the left elbow and pain presents for evaluation COMPARISON: Left elbow radiograph dated 04/28/2024 TECHNIQUE: AP, lateral and oblique views of the left elbow were obtained. FINDINGS: There is an acute, obliquely oriented and slightly displaced fracture through the supracondylar region of the left elbow with associated soft tissue swelling and obscuration of the anterior fat pad the elbow. There is mild impaction with regards to this fracture. No other fracture or dislocation is seen. The bones are osteopenic. No radiopaque foreign body. [facility] Honorio Andino MD - 07/30/2024 Patient Name: GONZALO DELUCA : 1955 Exam Date/Time: 07/30/2024 17:32 Procedure: XR ELBOW 1-2 VIEWS LEFT Ordering Provider: KEATING VISHNU Reason For Exam: fall; deformity EXAMINATION: XR left elbow. EXAM DATE & TIME: 07/30/2024 5:32 PM EDT INDICATION: fall; deformity ADDITIONAL INFORMATION: 68-year-old female status post fall with deformity of the left elbow and pain presents for evaluation COMPARISON: Left elbow radiograph dated 04/28/2024 TECHNIQUE: AP, lateral and oblique views of the left elbow were obtained. FINDINGS: There is an acute, obliquely oriented and slightly displaced fracture through the supracondylar region of the left elbow with associated soft tissue swelling and obscuration of the anterior fat pad the elbow. There is mild impaction with regards to this fracture. No other fracture or dislocation is seen. The bones are osteopenic. No radiopaque foreign body. IMPRESSION: Acute, obliquely oriented, slightly displaced and impacted fracture through the supracondylar region of the left elbow with associated soft tissue swelling. Report Dictated on Electronically Signed By: Honoiro Andino MD Electronically Signed Date/Time: 07/30/2024 5:46 PM EDT [facility] Radiology Study observation (narrative) [facility] XR Elbow - left 2 ViewsOrder ed By: Honorio Adnino on 07-30-2024 [facility] Work Phone: Progress Noteon 07-24-2024 Progress Note Call placed to patient, no show for port flush appointment today. LVM to return call to get rescheduled. Normal [facility] 06-30-2024 [facility]ON[facility] DEL[facility]CA ([id number]) 1955 F Date Time Provider Department 06/30/24 [facility] During your visit today, we recorded the following information about you: Whit Shay LPN 06/30/2024 10:14 AM Signed Type of letter/form/fax request - Assisted living orders Form received from [facility] on 06/29/24 floor and placed on MD desk () for completion. Completed form needs to be faxed to [phone]. Route to NE when form completed for processing Leona Castañeda APRN.[facility] 07/02/2024 2:33 PM Signed Orders signed and in outbox. Please fax. Thank you, Leona Castañeda APRN.NADEEM Berryyaneth KAMILAH Sherman 07/02/2024 2:54 PM Signed Request completed and faxed. Allergies As of Date: 06/30/2024 Noted Allergy Reaction SEASONAL ALLERGIES 08/16/2017 5 - Intolerance Date Reviewed: 12/30/2023 Reviewed by: Joaquina Martinez APRN.AN/SSN 2 4 OPERATOR - Fully Assessed Reason for Visit: Orders [681] Prescriptions as of 07/02/2024 - cyclobenzaprine (FLEXERIL) 5 mg tablet Take 1 tablet by mouth every 12 hours. - oxyCODONE-acetaminophe n (PERCOCET) 5-325 mg tablet Take 1 tablet by mouth every 6 hours as needed for pain for up to 30 days. - mirtazapine (REMERON) 30 mg tablet Take 1 tablet by mouth daily at bedtime. - predniSONE (DELTASONE) 20 mg tablet 2 tabs daily x 4 days, then 1 tab daily x 4 days, then 1/2 tab daily x 4 days - fluticasone-salmeterol (ADVAIR, WIXELA) 250-50 mcg/dose inhaler Inhale 1 Puff as instructed two times a day. RINSE AND GARGLE MOUTH WITH WATER AFTER EACH USE. - PARoxetine (PAXIL) 40 mg tablet TAKE 1 TABLET BY MOUTH EVERY DAY - QUEtiapine (SEROQUEL) 100 mg tablet Take 2 tablets by mouth at bedtime as needed. - alendronate (FOSAMAX) 70 mg tablet TAKE 1 TABLET BY MOUTH ONE TIME A WEEK. - albuterol HFA (PROVENTIL HFA, VENTOLIN HFA) 90 mcg/actuation inhaler Inhale 2 Puffs as instructed every 4 hours as needed for wheezing/shortness of breath. - tiotropium bromide (SPIRIVA RESPIMAT) 2.5 mcg/actuation inhaler INHALE 2 PUFFS BY MOUTH ONCE DAILY DIRECTED - fluticasone (FLONASE) 50 mcg/actuation nasal spray spray 2 sprays into each nostril every day - buPROPion XL (WELLBUTRIN XL) 150 mg 24 hr tablet take 1 tablet by mouth every day - montelukast (SINGULAIR) 10 mg tablet Take 10 mg by mouth daily at bedtime. - atorvastatin (LIPITOR) 40 mg tablet TAKE 1 TABLET BY MOUTH EVERY DAY AT NIGHT - Nebulizers Use as directed. - albuterol (PROVENTIL) 2.5 mg /3 mL (0.083 %) nebulizer solution INHALE 3 ML VIA NEBULIZER EVERY 4 HOURS NEEDED FOR WHEEZE OR FOR SHORTNESS OF BREATH Problem List As Of Date 06/30/2024 Noted Resolved DDD (degenerative disc disease), lumbar [M51.36* Panlobular emphysema (HCC) [J43.1] Major depression, recurrent, chronic (HCC) [F33* Osteoporosis [M81.0] Pulmonary nodule, right [R91.1] Compression fracture of body of thoracic verteb*07/11/2018 Obesity, Class I, BMI 30-34.9 [E66.811] 12/07/2018 03/11/2023 Chronic midline low back pain without sciatica *03/23/2019 History of cervical cancer [Z85.41] 11/02/2019 COPD (chronic obstructive pulmonary disease) wi*02/02/2021 03/09/2023 Chronic respiratory failure with hypoxia (HCC) *08/06/2021 Moderate malnutrition (HCC) [E44.0] 01/22/2023 03/11/2023 Compression fracture of L4 lumbar vertebra, wit*03/11/2023 Moderate episode of recurrent major depressive *03/11/2023 PAUL (generalized anxiety disorder) [F41.1] 03/11/2023 Chronic pain syndrome [G89.4] 03/11/2023 03/11/2023 Former smoker [Z87.891] 04/10/2017 Diagnosed: 03/11/2023 H/O: CVA (cerebrovascular accident) [Z86.73] 11/22/2019 Diagnosed: 03/11/2023 Leukocytosis [D72.829] 04/10/2017 Diagnosed: 03/11/2023 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/07/2019 05/20/2023 Diagnosed: 03/11/2023 Neoplasm of uncertain behavior of skin [D48.5] 04/23/2016 Diagnosed: 03/11/2023 Nondisplaced fracture of neck of left femur (HC*11/06/2022 Diagnosed: 03/11/2023 Other specified complication of vascular prosth*08/06/2021 Diagnosed: 03/11/2023 PNA (pneumonia) [J18.9] 08/02/2019 Diagnosed: 03/11/2023 Right arm weakness [R29.898] 11/21/2019 Diagnosed: 03/11/2023 Poor venous access [I87.8] 12/19/2019 Diagnosed: 03/11/2023 S/P hysterectomy [Z90.710] 11/06/2019 Diagnosed: 03/11/2023 Sciatica [M54.30] 04/10/2017 Diagnosed: 03/11/2023 Shortness of breath [R06.02] 04/13/2018 Diagnosed: 03/11/2023 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] 04/10/2017 Diagnosed: 03/11/2023 Encounter Status:Closed by WHIT SHAY on 07/02/24 [facility] CNPNon 06-07-2024 CNPN Telephone (HCSIND) GONZALO DELUCA ([id number]) 1955 F Date Time Provider Department 06/07/24 MADDI VALERO During your visit today, we recorded the following information about you: Maddi Valero LPN 06/07/2024 5:05 PM Signed Herminia Case MD Thank you for the referral. Our first available date for a therapy start of care is 06/11/24. Please let us know if this is acceptable for you and the patient. Thank you , Maddi Valero LPN June 07, 2024 5:05 PM Maddi Valero LPN 06/08/2024 9:25 AM Signed Herminia Case MD Thank you for the referral. Our first available date for a therapy start of care is 06/11/24. Please let us know if this is acceptable for you and the patient. Thank you , KAMILAH Subramanian Laura, MD 06/08/2024 10:21 AM Signed Yes it is, thank you. Jessica Linn LPN 06/10/2024 8:38 AM Signed Herminia Case MD, [facility] received a referral for [facility] services. We have made several attempts to reach the patient, but we have been unsuccessful. At this time we will be canceling the referral. If they require services, a new referral will need to be submitted. Thank you, Jessica Linn LPN [facility] Intake Nurse Melva Juárez PA-C 06/11/2024 1:35 PM Signed Noted. Melva Juárez PA-C Allergies As of Date: 06/07/2024 Noted Allergy Reaction SEASONAL ALLERGIES 08/16/2017 5 - Intolerance Date Reviewed: 12/30/2023 Reviewed by: Joaquina Martinez APRN.AN/SSN 2 4 OPERATOR - Fully Assessed Reason for Visit: Home Care [4073] Cmt: SOC approval. Prescriptions as of 06/11/2024 - mirtazapine (REMERON) 30 mg tablet Take 1 tablet by mouth daily at bedtime. - oxyCODONE-acetaminophe n (PERCOCET) 5-325 mg tablet Take 1 tablet by mouth every 6 hours as needed for pain for up to 30 days. - predniSONE (DELTASONE) 20 mg tablet 2 tabs daily x 4 days, then 1 tab daily x 4 days, then 1/2 tab daily x 4 days - fluticasone-salmeterol (ADVAIR, WIXELA) 250-50 mcg/dose inhaler Inhale 1 Puff as instructed two times a day. RINSE AND GARGLE MOUTH WITH WATER AFTER EACH USE. - PARoxetine (PAXIL) 40 mg tablet TAKE 1 TABLET BY MOUTH EVERY DAY - cyclobenzaprine (FLEXERIL) 5 mg tablet TAKE 1 TABLET BY MOUTH EVERY 12 HOURS - QUEtiapine (SEROQUEL) 100 mg tablet Take 2 tablets by mouth at bedtime as needed. - alendronate (FOSAMAX) 70 mg tablet TAKE 1 TABLET BY MOUTH ONE TIME A WEEK. - albuterol HFA (PROVENTIL HFA, VENTOLIN HFA) 90 mcg/actuation inhaler Inhale 2 Puffs as instructed every 4 hours as needed for wheezing/shortness of breath. - tiotropium bromide (SPIRIVA RESPIMAT) 2.5 mcg/actuation inhaler INHALE 2 PUFFS BY MOUTH ONCE DAILY DIRECTED - fluticasone (FLONASE) 50 mcg/actuation nasal spray spray 2 sprays into each nostril every day - buPROPion XL (WELLBUTRIN XL) 150 mg 24 hr tablet take 1 tablet by mouth every day - montelukast (SINGULAIR) 10 mg tablet Take 10 mg by mouth daily at bedtime. - atorvastatin (LIPITOR) 40 mg tablet TAKE 1 TABLET BY MOUTH EVERY DAY AT NIGHT - Nebulizers Use as directed. - albuterol (PROVENTIL) 2.5 mg /3 mL (0.083 %) nebulizer solution INHALE 3 ML VIA NEBULIZER EVERY 4 HOURS NEEDED FOR WHEEZE OR FOR SHORTNESS OF BREATH Problem List As Of Date 06/07/2024 Noted Resolved DDD (degenerative disc disease), lumbar [M51.36* Panlobular emphysema (HCC) [J43.1] Major depression, recurrent, chronic (HCC) [F33* Osteoporosis [M81.0] Pulmonary nodule, right [R91.1] Compression fracture of body of thoracic verteb*07/11/2018 Obesity, Class I, BMI 30-34.9 [E66.811] 12/07/2018 03/11/2023 Chronic midline low back pain without sciatica *03/23/2019 History of cervical cancer [Z85.41] 11/02/2019 COPD (chronic obstructive pulmonary disease) wi*02/02/2021 03/09/2023 Chronic respiratory failure with hypoxia (HCC) *08/06/2021 Moderate malnutrition (HCC) [E44.0] 01/22/2023 03/11/2023 Compression fracture of L4 lumbar vertebra, wit*03/11/2023 Moderate episode of recurrent major depressive *03/11/2023 PAUL (generalized anxiety disorder) [F41.1] 03/11/2023 Chronic pain syndrome [G89.4] 03/11/2023 03/11/2023 Former smoker [Z87.891] 04/10/2017 Diagnosed: 03/11/2023 H/O: CVA (cerebrovascular accident) [Z86.73] 11/22/2019 Diagnosed: 03/11/2023 Leukocytosis [D72.829] 04/10/2017 Diagnosed: 03/11/2023 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/07/2019 05/20/2023 Diagnosed: 03/11/2023 Neoplasm of uncertain behavior of skin [D48.5] 04/23/2016 Diagnosed: 03/11/2023 Nondisplaced fracture of neck of left femur (HC*11/06/2022 Diagnosed: 03/11/2023 Other specified complication of vascular prosth*08/06/2021 Diagnosed: 03/11/2023 PNA (pneumonia) [J18.9] 08/02/2019 Diagnosed: 03/11/2023 Right arm weakness [R29.898] 11/21/2019 Diagnosed: 03/11/2023 Poor venous access [I87.8] 12/19/2019 Diagnosed: 03/11/2023 S/P hysterectomy [Z90.710] (more content not included)... Normal [facility] CNPN Telephone (HCSIND) GONZALO DELUCA ([id number]) 1955 F Date Time Provider Department 06/07/24 MADDI VALERO HCSIND During your visit today, we recorded the following information about you: Allergies As of Date: 06/07/2024 Noted Allergy Reaction SEASONAL ALLERGIES 08/16/2017 5 - Intolerance Date Reviewed: 12/30/2023 Reviewed by: Joaquina Martinez APRN.AN/SSN 2 4 OPERATOR - Fully Assessed Reason for Visit: Home Care [4073] Cmt: Confirmation call. Prescriptions as of 06/11/2024 - mirtazapine (REMERON) 30 mg tablet Take 1 tablet by mouth daily at bedtime. - oxyCODONE-acetaminophe n (PERCOCET) 5-325 mg tablet Take 1 tablet by mouth every 6 hours as needed for pain for up to 30 days. - predniSONE (DELTASONE) 20 mg tablet 2 tabs daily x 4 days, then 1 tab daily x 4 days, then 1/2 tab daily x 4 days - fluticasone-salmeterol (ADVAIR, WIXELA) 250-50 mcg/dose inhaler Inhale 1 Puff as instructed two times a day. RINSE AND GARGLE MOUTH WITH WATER AFTER EACH USE. - PARoxetine (PAXIL) 40 mg tablet TAKE 1 TABLET BY MOUTH EVERY DAY - cyclobenzaprine (FLEXERIL) 5 mg tablet TAKE 1 TABLET BY MOUTH EVERY 12 HOURS - QUEtiapine (SEROQUEL) 100 mg tablet Take 2 tablets by mouth at bedtime as needed. - alendronate (FOSAMAX) 70 mg tablet TAKE 1 TABLET BY MOUTH ONE TIME A WEEK. - albuterol HFA (PROVENTIL HFA, VENTOLIN HFA) 90 mcg/actuation inhaler Inhale 2 Puffs as instructed every 4 hours as needed for wheezing/shortness of breath. - tiotropium bromide (SPIRIVA RESPIMAT) 2.5 mcg/actuation inhaler INHALE 2 PUFFS BY MOUTH ONCE DAILY DIRECTED - fluticasone (FLONASE) 50 mcg/actuation nasal spray spray 2 sprays into each nostril every day - buPROPion XL (WELLBUTRIN XL) 150 mg 24 hr tablet take 1 tablet by mouth every day - montelukast (SINGULAIR) 10 mg tablet Take 10 mg by mouth daily at bedtime. - atorvastatin (LIPITOR) 40 mg tablet TAKE 1 TABLET BY MOUTH EVERY DAY AT NIGHT - Nebulizers Use as directed. - albuterol (PROVENTIL) 2.5 mg /3 mL (0.083 %) nebulizer solution INHALE 3 ML VIA NEBULIZER EVERY 4 HOURS NEEDED FOR WHEEZE OR FOR SHORTNESS OF BREATH Problem List As Of Date 06/07/2024 Noted Resolved DDD (degenerative disc disease), lumbar [M51.36* Panlobular emphysema (HCC) [J43.1] Major depression, recurrent, chronic (HCC) [F33* Osteoporosis [M81.0] Pulmonary nodule, right [R91.1] Compression fracture of body of thoracic verteb*07/11/2018 Obesity, Class I, BMI 30-34.9 [E66.811] 12/07/2018 03/11/2023 Chronic midline low back pain without sciatica *03/23/2019 History of cervical cancer [Z85.41] 11/02/2019 COPD (chronic obstructive pulmonary disease) wi*02/02/2021 03/09/2023 Chronic respiratory failure with hypoxia (HCC) *08/06/2021 Moderate malnutrition (HCC) [E44.0] 01/22/2023 03/11/2023 Compression fracture of L4 lumbar vertebra, wit*03/11/2023 Moderate episode of recurrent major depressive *03/11/2023 PAUL (generalized anxiety disorder) [F41.1] 03/11/2023 Chronic pain syndrome [G89.4] 03/11/2023 03/11/2023 Former smoker [Z87.891] 04/10/2017 Diagnosed: 03/11/2023 H/O: CVA (cerebrovascular accident) [Z86.73] 11/22/2019 Diagnosed: 03/11/2023 Leukocytosis [D72.829] 04/10/2017 Diagnosed: 03/11/2023 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/07/2019 05/20/2023 Diagnosed: 03/11/2023 Neoplasm of uncertain behavior of skin [D48.5] 04/23/2016 Diagnosed: 03/11/2023 Nondisplaced fracture of neck of left femur (HC*11/06/2022 Diagnosed: 03/11/2023 Other specified complication of vascular prosth*08/06/2021 Diagnosed: 03/11/2023 PNA (pneumonia) [J18.9] 08/02/2019 Diagnosed: 03/11/2023 Right arm weakness [R29.898] 11/21/2019 Diagnosed: 03/11/2023 Poor venous access [I87.8] 12/19/2019 Diagnosed: 03/11/2023 S/P hysterectomy [Z90.710] 11/06/2019 Diagnosed: 03/11/2023 Sciatica [M54.30] 04/10/2017 Diagnosed: 03/11/2023 Shortness of breath [R06.02] 04/13/2018 Diagnosed: 03/11/2023 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] 04/10/2017 Diagnosed: 03/11/2023 Encounter Status:Closed by MADDI VALERO on 06/07/24 Normal [facility] Helen 06-06-2024 CNPN Telephone (HCSIND) GONZALO DELUCA ([id number]) 1955 F Date Time Provider Department 06/06/24 HERMINIA CASE HCSIND During your visit today, we recorded the following information about you: Erna Diaz LPN 06/06/2024 1:02 PM Signed Herminia Case MD Thank you for the referral for Gonzalo Deluca to receive home care services through [facility]. At this time, the office note is not yet completed for us to review for CMS guidelines. Please let us know once you have an opportunity to complete it so that we can review for CMS. Also, per CMS guidelines your office note needs to include a discussion of HHC with the following: - why is HHC needed - why is the patient homebound - what is the diagnosis that HHC is seeing the patient for. Thank you, KAMILAH Cohn Melissa, LPN 06/07/2024 12:30 PM Signed Herminia Case MD At this time, the office note is not yet completed for us to review for CMS guidelines. Please let us know once you have an opportunity to complete it so that we can review for CMS. Also, per CMS guidelines your office note needs to include a discussion of HHC with the following: - why is HHC needed - why is the patient homebound - what is the diagnosis that HHC is seeing the patient for. Thank you, KAMILAH Padgett Laura, MD 06/07/2024 4:22 PM Signed Note done. Allergies As of Date: 06/06/2024 Noted Allergy Reaction SEASONAL ALLERGIES 08/16/2017 5 - Intolerance Date Reviewed: 12/30/2023 Reviewed by: Joaquina Martinez APRN.AN/SSN 2 4 OPERATOR - Fully Assessed Reason for Visit: Home Care [4073] Prescriptions as of 06/07/2024 - mirtazapine (REMERON) 30 mg tablet Take 1 tablet by mouth daily at bedtime. - oxyCODONE-acetaminophe n (PERCOCET) 5-325 mg tablet Take 1 tablet by mouth every 6 hours as needed for pain for up to 30 days. - predniSONE (DELTASONE) 20 mg tablet 2 tabs daily x 4 days, then 1 tab daily x 4 days, then 1/2 tab daily x 4 days - fluticasone-salmeterol (ADVAIR, WIXELA) 250-50 mcg/dose inhaler Inhale 1 Puff as instructed two times a day. RINSE AND GARGLE MOUTH WITH WATER AFTER EACH USE. - PARoxetine (PAXIL) 40 mg tablet TAKE 1 TABLET BY MOUTH EVERY DAY - cyclobenzaprine (FLEXERIL) 5 mg tablet TAKE 1 TABLET BY MOUTH EVERY 12 HOURS - QUEtiapine (SEROQUEL) 100 mg tablet Take 2 tablets by mouth at bedtime as needed. - alendronate (FOSAMAX) 70 mg tablet TAKE 1 TABLET BY MOUTH ONE TIME A WEEK. - albuterol HFA (PROVENTIL HFA, VENTOLIN HFA) 90 mcg/actuation inhaler Inhale 2 Puffs as instructed every 4 hours as needed for wheezing/shortness of breath. - tiotropium bromide (SPIRIVA RESPIMAT) 2.5 mcg/actuation inhaler INHALE 2 PUFFS BY MOUTH ONCE DAILY DIRECTED - fluticasone (FLONASE) 50 mcg/actuation nasal spray spray 2 sprays into each nostril every day - buPROPion XL (WELLBUTRIN XL) 150 mg 24 hr tablet take 1 tablet by mouth every day - montelukast (SINGULAIR) 10 mg tablet Take 10 mg by mouth daily at bedtime. - atorvastatin (LIPITOR) 40 mg tablet TAKE 1 TABLET BY MOUTH EVERY DAY AT NIGHT - Nebulizers Use as directed. - albuterol (PROVENTIL) 2.5 mg /3 mL (0.083 %) nebulizer solution INHALE 3 ML VIA NEBULIZER EVERY 4 HOURS NEEDED FOR WHEEZE OR FOR SHORTNESS OF BREATH Problem List As Of Date 06/06/2024 Noted Resolved DDD (degenerative disc disease), lumbar [M51.36* Panlobular emphysema (HCC) [J43.1] Major depression, recurrent, chronic (HCC) [F33* Osteoporosis [M81.0] Pulmonary nodule, right [R91.1] Compression fracture of body of thoracic verteb*07/11/2018 Obesity, Class I, BMI 30-34.9 [E66.811] 12/07/2018 03/11/2023 Chronic midline low back pain without sciatica *03/23/2019 History of cervical cancer [Z85.41] 11/02/2019 COPD (chronic obstructive pulmonary disease) wi*02/02/2021 03/09/2023 Chronic respiratory failure with hypoxia (HCC) *08/06/2021 Moderate malnutrition (HCC) [E44.0] 01/22/2023 03/11/2023 Compression fracture of L4 lumbar vertebra, wit*03/11/2023 Moderate episode of recurrent major depressive *03/11/2023 PAUL (generalized anxiety disorder) [F41.1] 03/11/2023 Chronic pain syndrome [G89.4] 03/11/2023 03/11/2023 Former smoker [Z87.891] 04/10/2017 Diagnosed: 03/11/2023 H/O: CVA (cerebrovascular accident) [Z86.73] 11/22/2019 Diagnosed: 03/11/2023 Leukocytosis [D72.829] 04/10/2017 Diagnosed: 03/11/2023 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/07/2019 05/20/2023 Diagnosed: 03/11/2023 Neoplasm of uncertain behavior of skin [D48.5] 04/23/2016 Diagnosed: 03/11/2023 Nondisplaced fracture of neck of left femur (HC*11/06/2022 Diagnosed: 03/11/2023 Other specified complication of vascular prosth*08/06/2021 Diagnosed: 03/11/2023 PNA (pneumonia) [J18.9] 08/02/2019 Diagnosed: 03/11/2023 Right arm weakness [R29.898] 11/21/2019 Diagnosed: 03/11/2023 Poor venous access [I87.8] (more content not included)... Normal [facility] 36on 06-05-2024 36 Pt called with christian padron to schedule appt with [facility]. Made appt with pt being past due. Pt was supposed to be seen 05/14 for 6 month surveillance appt. Called [facility] and scheduled port flush for 06/12/24 at 2:00 pm. Normal [facility] 36 Patient called to obtain an order for a port flush and/or removal. Patient not sure if she needs to make an appointment. Patient would like schedule in [place]. Verified contact number for patient is correct. Normal [facility] Basic metabolic 1998 panelon 04-28-2024 Anion gap [Moles/Vol] 8 mmol/L 3 - 13 mmol/L [facility] Calcium [Mass/Vol] 9.1 mg/dL 8.8 - 10. 0 mg/dL [facility] Chloride [Moles/Vol] 102 mmol/L 98 - 10 7 mmol/L [facility] CO2 [Moles/Vol] 33 mmol/L High 23 - 31 mmol/L [facility] Creatinine [Mass/Vol] 0.78 mg/dL 0.57 - 1.11 mg/dL [facility] GFR/1.73 sq M.predicted (S/P/Bld) [Vol rate/Area] 83.4 mL/min - PINF [facility] Comment on above: Calculation based on the Chronic Kidney Disease Epidemiology Collaboration (CKD-EPI) equation refit without adjustment for race Glucose [Mass/Vol] 179 mg/dL High 82 - 115 mg/dL [facility] Interpretation and review of laboratory results Abnormal [facility] Potassium [Moles/Vol] 3.6 mmol/L 3.5 - 5.1 mmol/L [facility] Comment on above: Plasma potassium martín ues may be up to 0.5 mmol/L lower than serum values. Sodium [Moles/Vol] 143 mmol/L 136 - 145 mmol/L [facility] Urea nitrogen [Mass/Vol] 13 mg/dL 9 - 23 mg/d L [facility] CBC W Auto Differential pane l (Bld)Ordered By: Hakeem Cruz on 04-28-2024 Basophils (Bld) [#/Vol] 0 10*3/uL 0.0 - 0.2 10*3/uL [facility] Basophils/100 WBC (Bld) 0.6 % 0.0 - 2.0 % [facility] Eosinophils (Bld) [#/Vol] 0.3 10*3/uL 0.0 - 0.5 10*3/uL [facility] Eosinophils/100 WBC (Bld) 4 % 0.0 - 6.0 % [facility] Erythrocyte distribution width (RBC) [Ratio] 13.2 % 11.5 - 15.0 % [facility] Hematocrit (Bld) [Volume fraction] 37.3 % 35.0 - 47.0 % [facility] Hemoglobin (Bld) [Mass/Vol] 11.5 g/dL Low 11.7 - 16.0 g/dL [facility] Immature granulocytes (Bld) [#/Vol] 0 10*3/uL NINF - 0.1 10*3/uL [facility] Immature granulocytes/100 WBC (Bld) 0.5 % 0.0 - 2.0 % [facility] Interpretation and review of laboratory results Abnormal [facility] Lymphocytes (Bld) [#/Vol] 0.7 10*3/uL Low 1.0 - 4.3 10*3/uL [facility] Lymphocytes/100 WBC (Bld) 10.6 % Low 15.0 - 45.0 % [facility] MCH (RBC) [Entitic mass] 30.9 pg 26. 0 - 34.0 pg [facility] MCHC (RBC) [Mass/Vol] 30.8 % 30.5 - 36.0 % [facility] MCV (RBC) [Entitic vol] 100.3 fL High 77.0 - 99.0 fL [facility] Monocytes (Bld) [#/Vol] 0.4 10*3/uL 0.0 - 0.9 10*3/uL [facility] Monocytes/100 WBC (Bld) 6.5 % 5.0 - 13.0 % [facility] Neutrophils (Bld) [#/Vol] 5.1 10*3/uL 1.8 - 7.5 10*3/uL [facility] Neutrophils/100 WBC (Bld) 77.8 % 38.0 - 82.0 % [facility] Nucleated RBC/100 WBC (Bld) [Ratio] 0 % [facility] Platelet mean volume (Bld) [Entitic vol] 10 fL 9.0 - 12.7 fL [facility] Platelets (Bld) [#/Vol] 165 10*3/uL 140 - 440 10*3/uL [facility] RBC (Bld) [#/Vol] 3.72 10*6/uL Low 3.80 - 5.2 0 10*6/uL [facility] WBC (Bld) [#/Vol] 6.5 10*3/uL 3.6 - 10.7 10*3/uL [facility] CT CERVICAL SPINE WO IV CONT RASTon 04-28-2024 CT CERVICAL SPINE WO IV CONTRAST Normal [facility] CT Cervical spine WO contras ton 04-28-2024 Patient Name: GONZALO DELUCA : 1955 Exam Date/Time: 04/28/2024 00:12 Procedure: CT CERVICAL SPINE WO IV CONTRAST Ordering Provider: ALTAMIRANO JEFFREY Reason For Exam: Neck trauma (Age >= 65y) Indication: Trauma Comparison date: No comparison. FINDINGS: Dose reduction was employed with automated exposure control.3 mm unenhanced imaging of the brain performed. Images viewed in multiple orthogonal planes. Limited by motion, streak artifact. There is no definite acute edema, midline shift, acute hemorrhage, or findings to suggest high likelihood of large acute infarct, within limits of the study. MRI more specific/sensitive. No convincing abnormal extra-axial fluid collections visualized. Bony structures:Unremarkabl e as seen. CSF spaces are not convincingly abnormal. Orbits within normal limits. Review of the paranasal sinuses shows no air-fluid levels. [facility] Ramses Gamble MD - 04/28/2024 Patient Name: GONZALO DELUCA : 1955 Exam Date/Time: 04/28/2024 00:12 Procedure: CT CERVICAL SPINE WO IV CONTRAST Ordering Provider: ALTAMIRANO JEFFREY Reason For Exam: Neck trauma (Age >= 65y) Indication: Trauma Comparison date: No comparison. FINDINGS: Dose reduction was employed with automated exposure control.3 mm unenhanced imaging of the brain performed. Images viewed in multiple orthogonal planes. Limited by motion, streak artifact. There is no definite acute edema, midline shift, acute hemorrhage, or findings to suggest high likelihood of large acute infarct, within limits of the study. MRI more specific/sensitive. No convincing abnormal extra-axial fluid collections visualized. Bony structures:Unremarkabl e as seen. CSF spaces are not convincingly abnormal. Orbits within normal limits. Review of the paranasal sinuses shows no air-fluid levels. IMPRESSION: Impression: No acute process seen. CT cervical spine: Indication: Trauma and neck pain FINDINGS: Dose reduction was employed with automated exposure control. Unenhanced cervical spine performed. 3-D imaging created and reviewed on independent 3-D workstation for better detection of pathology evaluation of neural foramina. Limited by motion. Bone density:Normal. Acute lesions: No acute fracture or dislocation. Soft tissues: No soft tissue swelling. Arthritis: Degenerative changes visible. Posterior osteophytes cause neural foraminal narrowing. Limited views of skull base unremarkable. Visualized portions of lung apices Show no major volume loss.. IMPRESSION: No acute bone process. Report Dictated on Electronically Signed By: Ramses Gamble MD Electronically Signed Date/Time: 04/28/2024 12:50 AM [facility] Radiology Study observation (narrative) [facility] HEAD WO IV CONTRASTon CT HEAD WO IV CONTRAST Normal [facility] CT Head WO contraston 2024 [facility] 1955 [id number] Exam Date/Time: 04/28/2024 00:12 Procedure: CT HEAD WO IV CONTRAST Ordering Provider: ALTAMIRANO JEFFREY Reason For Exam: Head trauma, minor (Age >= 65y) Indication: Trauma Comparison date: No comparison. FINDINGS: Dose reduction was employed with automated exposure control.3 mm unenhanced imaging of the brain performed. Images viewed in multiple orthogonal planes. Limited by motion, streak artifact. There is no definite acute edema, midline shift, acute hemorrhage, or findings to suggest high likelihood of large acute infarct, within limits of the study. MRI more specific/sensitive. No convincing abnormal extra-axial fluid collections visualized. Bony structures:Unremarkabl e as seen. CSF spaces are not convincingly abnormal. Orbits within normal limits. Review of the paranasal sinuses shows no air-fluid levels. [facility] Ramses Gamble MD - 04/28/2024 [facility] Name[facility]ONZALO [facility]CA : 1955 [id number] Exam Date/Time: 04/28/2024 00:12 Procedure: CT HEAD WO IV CONTRAST Ordering Provider: ALTAMIRANO JEFFREY Reason For Exam: Head trauma, minor (Age >= 65y) Indication: Trauma Comparison date: No comparison. FINDINGS: Dose reduction was employed with automated exposure control.3 mm unenhanced imaging of the brain performed. Images viewed in multiple orthogonal planes. Limited by motion, streak artifact. There is no definite acute edema, midline shift, acute hemorrhage, or findings to suggest high likelihood of large acute infarct, within limits of the study. MRI more specific/sensitive. No convincing abnormal extra-axial fluid collections visualized. Bony structures:Unremarkabl e as seen. CSF spaces are not convincingly abnormal. Orbits within normal limits. Review of the paranasal sinuses shows no air-fluid levels. IMPRESSION: Impression: No acute process seen. CT cervical spine: Indication: Trauma and neck pain FINDINGS: Dose reduction was employed with automated exposure control. Unenhanced cervical spine performed. 3-D imaging created and reviewed on independent 3-D workstation for better detection of pathology evaluation of neural foramina. Limited by motion. Bone density:Normal. Acute lesions: No acute fracture or dislocation. Soft tissues: No soft tissue swelling. Arthritis: Degenerative changes visible. Posterior osteophytes cause neural foraminal narrowing. Limited views of skull base unremarkable. Visualized portions of lung apices Show no major volume loss.. IMPRESSION: No acute bone process. Report Dictated on Electronically Signed By: Ramses aGmble MD Electronically Signed Date/Time: 04/28/2024 12:50 AM EST [facility] Radiology Study observation (narrative) [facility] ECG 12-LEADon 04-28-2024 ECG 12-LEAD IMPRESSION: Sinus rhythm with normal rate, intervals and QRS duration. No acute ischemic changes. Inferior Q waves, old Electronically Signed On 04-28-2024 14:40:42 EST by Freddy Ibarra Normal [facility] Laboratory - Chemistry and C hemistry - challengeon 04-28-2024 Magnesium [Mass/Vol] 2 mg/dL 1.6 - 2 .6 mg/dL [facility] Magnesium [Mass/Vol]on 04-28 Interpretation and review of laboratory results Normal [facility] Higher values can be expected in females during menses. [facility] No Panel Informationon 04-28 Impression: No acute process seen. CT cervical spine: Indication: Trauma and neck pain FINDINGS: Dose reduction was employed with automated exposure control. Unenhanced cervical spine performed. 3-D imaging created and reviewed on independent 3-D workstation for better detection of pathology evaluation of neural foramina. Limited by motion. Bone density:Normal. Acute lesions: No acute fracture or dislocation. Soft tissues: No soft tissue swelling. Arthritis: Degenerative changes visible. Posterior osteophytes cause neural foraminal narrowing. Limited views of skull base unremarkable. Visualized portions of lung apices Show no major volume loss.. IMPRESSION: No acute bone process. Report Dictated on Electronically Signed By: Ramses Gamble MD Electronically Signed Date/Time: 04/28/2024 12:50 AM [employer] [facility] Interpretation and review of laboratory results Normal [facility] Troponin HS Serial Baseline 4 ng/L NINF - 14 ng/L [facility] Comment on above: In individuals prese nting with symptoms > 2h, a baseline troponin <= 5 ng/L suggests acute cardiac injury is unlikely and further serial testing is generally not indicated. [facility] XR Elbow - left 3 Viewson Findings and impression: Left elbow three views performed. Bone density is normal. No fracture or dislocation seen. Report Dictated on Electronically Signed By: Ramses Gamble MD Electronically Signed Date/Time: 04/28/2024 12:23 AM [employer] Patient Name: GONZALO DELUCA : 1955 Exam Date/Time: 04/28/2024 00:01 Procedure: XR ELBOW 3+ VIEWS LEFT Ordering Provider: ALTAMIRANO JEFFREY Reason For Exam: Elbow trauma Indication: Elbow trauma. [facility] Ramses Gamble MD - 04/28/2024 Patient Name: [facility]ONZALO DELUCA : 1955 [id number] Exam Date/Time: 04/28/2024 00:01 Procedure: XR ELBOW 3+ VIEWS LEFT Ordering Provider: ALTAMIRANO JEFFREY Reason For Exam: Elbow trauma Indication: Elbow trauma. IMPRESSION: Findings and impression: Left elbow three views performed. Bone density is normal. No fracture or dislocation seen. Report Dictated on Electronically Signed By: Ramses Gamble MD Electronically Signed Date/Time: 04/28/2024 12:23 AM EST [facility] Radiology Study observation (narrative) [facility] XR Elbow - left 3 ViewsOrder ed By: Ramses Gamble on 04-28-2024 [facility] Work Phone: BASIC METABOLIC PANELon 02-0 Anion gap [Moles/Vol] 8 mmol/L Normal 3-13 [facility] Comment on above: Performed By: #### L [id number], LAB15, [id number] ####Natural Gas Inspector: HANS PAULSON ([id number])[facility] ([facility])[address] [place] [address] Calcium [Mass/Vol] 9.1 mg/dL Normal 8.8-10.0 [facility] Comment on above: Performed By: #### L [id number], LAB15, [id number] ####Natural Gas Inspector: HANS PAULSON ([id number])[facility] ([facility])[address] [place] [address] Chloride [Moles/Vol] 102 mmol/L Normal 98-107 [facility] Comment on above: Performed By: #### L [id number], LAB15, [id number] ####Natural Gas Inspector: HANS PAULSON ([id number])[facility] ([facility])[address] [place] [address] [place] CO2 [Moles/Vol] 33 mmol/L High 23-31 [facility] Comment on above: Performed By: #### Arsenio RAGLAND, LAB15, [id number] ####Natural Gas Inspector: HANS PAULSON ([id number])[facility] ([facility])[address] Creatinine [Mass/Vol] 0.78 mg/dL Normal 0.57-1.11 [facility] Comment on above: Performed By: #### Arsenio RAGLAND, LAB15, [id number] ####Natural Gas Inspector: HANS PAULSON ([id number])[facility] ([facility])[address] [place] [address] [place] GLOMERULAR FILTRATION RATE ML/MIN/1.73 SQ M.PREDICTED 83.4 mL/min/1.73m*2 Normal >60.0 [facility] Comment on above: Result Comment: Calc ulation based on the Chronic Kidney Disease Epidemiology Collaboration (CKD-EPI) equation refit without adjustment for race Performed By: #### Arsenio RAGLAND, LAB15, [id number] ####Natural Gas Inspector: HANS PAULSON ([id number])[facility] ([facility])[address] [place] [address] [place] Glucose [Mass/Vol] 179 mg/dL High 82-115 [facility] Comment on above: Performed By: #### Arsenio RAGLAND, LAB15, [id number] ####Natural Gas Inspector: HANS PAULSON ([id number])[facility] ([facility])[address] [place] [address] [place] Potassium [Moles/Vol] 3.6 mmol/L Normal 3.5-5.1 [facility] Comment on above: Result Comment: [facility] potassium values may be up to 0.5 mmol/L lower than serum values. Performed By: #### Arsenio AB103, LAB15, [id number] ####Natural Gas Inspector: HANS [id number])[facility] ([facility])[address] Sodium [Moles/Vol] 143 mmol/L Normal 136-145 [facility] Comment on above: Performed By: #### L AB103, LAB15, [id number] ####Natural Gas Inspector: HANS PAULSON ([id number])[facility] ([facility])[address] Urea nitrogen [Mass/Vol] 13 mg/dL Normal 9-23 [facility] Comment on above: Performed By: #### L [id number], LAB15, [id number] ####Natural Gas Inspector: HANS PAULSON ([id number])[facility] ([facility])[address] CBC WITH AUTO DIFFERENTIALon 04-27-2024 Basophils (Bld) [#/Vol] 0.0 10*3/uL Normal 0.0-0.2 [facility] Comment on above: Performed By: #### L [id number] ####Natural Gas Inspector: HANS PAULSON ([id number])[facility] [place] ([facility])[address] Basophils/100 WBC (Bld) 0.6 % Normal 0.0-2.0 [facility] Comment on above: Performed By: #### L [id number] ####Natural Gas Inspector: HANS PAULSON ([id number])[facility] [place] ([facility])[address] Eosinophils (Bld) [#/Vol] 0.3 10*3/uL Normal 0.0-0.5 [facility] Comment on above: Performed By: #### L [id number] ####Natural Gas Inspector: HANS PAULSON ([id number])[facility] [place] ([facility])[address] Eosinophils/100 WBC (Bld) 4.0 % Normal 0.0-6.0 [facility] Comment on above: Performed By: #### L [id number] ####Natural Gas Inspector: HANS ALCANTARESCOBAR ([id number])[facility] [place] [address] Erythrocyte distribution width (RBC) [Ratio] 13.2 % Normal 11.5-15.0 [facility] Comment on above: Performed By: #### L [id number] ####Natural Gas Inspector: HANS ALCANTARESCOBAR ([id number])[facility] [place] [address] Hematocrit (Bld) [Volume fraction] 37.3 % Normal 35.0-47.0 [facility] Comment on above: Performed By: #### L [id number] ####Natural Gas Inspector: HANS ALCANTARESCOBAR ([id number])[facility] ([facility])[address] [place] [address] Hemoglobin (Bld) [Mass/Vol] 11.5 g/dL Low 11.7-16.0 [facility] Comment on above: Performed By: #### L [id number] ####Natural Gas Inspector: HANS PAULSON ([id number])[facility] ([facility])[address] [place] [address] IMMATURE GRANS % 0.5 % Normal 0.0-2.0 [facility] Comment on above: Performed By: #### L [id number] ####Natural Gas Inspector: HANS PAULSON ([id number])[facility] ([facility])[address] [place] [address] IMMATURE GRANS ABSOLUTE 0.0 10*3/uL Normal <0.1 [facility] Comment on above: Performed By: #### L [id number] ####Natural Gas Inspector: HANS PAULSON ([id number])[facility] ([facility])[address] [place] [address] Lymphocytes (Bld) [#/Vol] 0.7 10*3/uL Low 1.0-4.3 [facility] Comment on above: Performed By: #### L [id number] ####Natural Gas Inspector: HANS PAULSON ([id number])[facility] ([facility])[address] Lymphocytes/100 WBC (Bld) 10.6 % Low 15.0-45.0 [facility] Comment on above: Performed By: #### L [id number] ####Natural Gas Inspector: HANS PAULSON ([id number])[facility]ERNorm[facility] ([facility])[address] MCH (RBC) [Entitic mass] 30.9 pg Normal 26.0-34.0 [facility] Comment on above: Performed By: #### L [id number] ####Natural Gas Inspector: HANS WALDROPKimESCOBAR ([id number])[facility] CANCER CENTERNorma VILAMarisa (SBHLAB)[address] MCHC 30.8 % Normal 30.5-36.0 [facility] Comment on above: Performed By: #### L [id number] ####Natural Gas Inspector: HANS PAULSON ([id number])[facility] CANCER CENTERNorma BR[facility] CENTERMarisa (SBHLAB)[address] MCV (RBC) [Entitic vol] 100.3 fL High 77.0-99.0 [facility] Comment on above: Performed By: #### L [id number] ####Natural Gas Inspector: HANS PAULSON ([id number])[facility] CAN[facility]ENTERNorma BR[facility] CENTERMarisa (SBHLAB)[address] Monocytes (Bld) [#/Vol] 0.4 10*3/uL Normal 0.0-0.9 [facility] Comment on above: Performed By: #### L [id number] ####Natural Gas Inspector: HANS PAULSON ([id number])[facility] CAN[facility] CENTERNorma [facility]ENTERN (SBHLAB)[address] Monocytes/100 WBC (Bld) 6.5 % Normal 5.0-13.0 [facility] Comment on above: Performed By: #### L [id number] ####Natural Gas Inspector: HANS ALCANTARESCOBAR ([id number])[facility] CAN[facility]ENTERA [place] (SBHLAB)[address] NEUTROPHILS ABSOLUTE 5.1 10*3/uL Normal 1.8-7.5 [facility] Comment on above: Performed By: #### L [id number] ####Natural Gas Inspector: HANS ALCANTARESCOBAR ([id number])[facility]ENTERA [place] (SBHLAB)[address] Neutrophils/100 WBC (Bld) 77.8 % Normal 38.0-82.0 [facility] Comment on above: Performed By: #### L [id number] ####Natural Gas Inspector: HANS WALDROPIVELISSE ([id number])[facility]ENTERA [place] (SBHLAB)[address] [place] [address] NRBC 0.0 /100 WBCs Normal 0.0-2.0 [facility] Comment on above: Performed By: #### L [id number] ####Natural Gas Inspector: HANS ALCANTARESCOBAR ([id number])[facility]A [place] (SBHLAB)[address] Platelet mean volume (Bld) [Entitic vol] 10.0 fL Normal 9.0-12.7 [facility] Comment on above: Performed By: #### L [id number] ####Natural Gas Inspector: HANS PAULSON ([id number])[facility]A [place] (SBHLAB)[address] Platelets (Bld) [#/Vol] 165 10*3/uL Normal 140-440 [facility] Comment on above: Performed By: #### L [id number] ####Natural Gas Inspector: HANS ALCANTARESCOBAR ([id number])[facility]A [place] (SBHLAB)[address] RBC (Bld) [#/Vol] 3.72 10*6/uL Low 3.80-5.20 [facility] Comment on above: Performed By: #### L [id number] ####Natural Gas Inspector: HANSRONALD PAULSON ([id number])[facility] CAN[facility]ER CENTERNorma [place] (SBHLAB)[address] WBC (Bld) [#/Vol] 6.5 10*3/uL Normal 3.6-10.7 [facility] Comment on above: Performed By: #### L [id number] ####Natural Gas Inspector: HANSRONALD PAULSON ([id number])[facility] ED Nursing Noteon 04-27-2024 ED Nursing Note Per ems, fall on carpeted floor. _ LOC but pt states she was dizzy and weak prior to fall. C/o L elbow and nose pain 2ndary fall Normal [facility] ED Provider Noteon ED Provider Note Normal [facility] HIGH SENSITIVITY TROPONIN, S ERIAL BASELINEon 04-27-2024 TROPONIN HS SERIAL BASELINE 4 ng/L Normal <=14 [facility] Comment on above: Result Comment: In i ndividuals presenting with symptoms > 2h, a baseline troponin <= 5 ng/L suggests acutecardiac injury is unlikely and further serial testing is generally not indicated. Performed By: #### L [id number], LAB15, [id number] ####Natural Gas Inspector: HANSRONALD PAULSON ([id number])[facility])[address] [place] [address] MAGNESIUMon 04-27-2024 Magnesium [Mass/Vol] 2.0 mg/dL Normal 1.6-2.6 [facility] Comment on above: Result Comment: ORDE R COMMENTS:Higher values can be expected in females during menses. Performed By: #### L [id number], LAB15, [id number] ####Natural Gas Inspector: HANS WALDROPIVELISSE ([id number])[facility] (SBAB)[address] CNPLupe 03-01-2024 CNPN Telephone ([facility]) GONZALO DELUCA ([id number]) 1955 F Date Time Provider Department 03/01/24 HERMINIA CASE During your visit today, we recorded the following information about you: Whit Shay LPN 03/01/2024 10:46 AM Signed Per [facility], Diclofenac Sodium is on backorder unavailable. Please advise. KAMILAH Contreras Laura, MD 03/01/2024 3:51 PM Signed Let patient know she can try looking for this available over the counter. Looks like she uses the diclofenac gel. Whit Shay LPN 03/02/2024 9:18 AM Signed LM for patient to call the office. KAMILAH Contreras Dawn, LPN 03/05/2024 3:49 PM Signed Patient aware, will buy over the counter. Whit Shay LPN Allergies As of Date: 03/01/2024 Noted Allergy Reaction SEASONAL ALLERGIES 08/16/2017 5 - Intolerance Date Reviewed: 12/30/2023 Reviewed by: Joaquina Martinez APRN.AN/SSN 2 4 OPERATOR - Fully Assessed Reason for Visit: Medication Problem [65] Prescriptions as of 03/05/2024 - oxyCODONE-acetaminophe n (PERCOCET) 5-325 mg tablet Take 1 tablet by mouth every 6 hours as needed for pain for up to 30 days. - busPIRone (BUSPAR) 15 mg tablet Take 1 tablet by mouth three times a day. - PARoxetine (PAXIL) 40 mg tablet Take 1 tablet by mouth once daily. - mometasone-formoterol (DULERA) 200-5 mcg/actuation inhaler Inhale 2 Puffs as instructed two times a day. - cyclobenzaprine (FLEXERIL) 5 mg tablet Take 1 tablet by mouth every 12 hours. - predniSONE (DELTASONE) 20 mg tablet Take 2.5 tabs for 2 days, then decrease by 0.5 tab every 2 days until gone - alendronate (FOSAMAX) 70 mg tablet TAKE 1 TABLET BY MOUTH ONE TIME A WEEK. - albuterol HFA (PROVENTIL HFA, VENTOLIN HFA) 90 mcg/actuation inhaler Inhale 2 Puffs as instructed every 4 hours as needed for wheezing/shortness of breath. - tiotropium bromide (SPIRIVA RESPIMAT) 2.5 mcg/actuation inhaler INHALE 2 PUFFS BY MOUTH ONCE DAILY DIRECTED - mirtazapine (REMERON) 15 mg tablet take 1 tablet by mouth everyday at bedtime - fluticasone (FLONASE) 50 mcg/actuation nasal spray spray 2 sprays into each nostril every day - QUEtiapine (SEROQUEL) 100 mg tablet take 2 tablets by mouth at bedtime as needed - buPROPion XL (WELLBUTRIN XL) 150 mg 24 hr tablet take 1 tablet by mouth every day - diclofenac (VOLTAREN ARTHRITIS PAIN) 1 % topical gel Apply 2 g to affected area four times daily. - montelukast (SINGULAIR) 10 mg tablet Take 10 mg by mouth daily at bedtime. - diclofenac (VOLTAREN) 1 % topical gel Apply 4 g to affected area. - atorvastatin (LIPITOR) 40 mg tablet TAKE 1 TABLET BY MOUTH EVERY DAY AT NIGHT - Nebulizers Use as directed. - albuterol (PROVENTIL) 2.5 mg /3 mL (0.083 %) nebulizer solution INHALE 3 ML VIA NEBULIZER EVERY 4 HOURS NEEDED FOR WHEEZE OR FOR SHORTNESS OF BREATH Problem List As Of Date 03/01/2024 Noted Resolved DDD (degenerative disc disease), lumbar [M51.36* Panlobular emphysema (HCC) [J43.1] Major depression, recurrent, chronic (HCC) [F33* Osteoporosis [M81.0] Pulmonary nodule, right [R91.1] Compression fracture of body of thoracic verteb*07/11/2018 Obesity, Class I, BMI 30-34.9 [E66.811] 12/07/2018 03/11/2023 Chronic midline low back pain without sciatica *03/23/2019 History of cervical cancer [Z85.41] 11/02/2019 COPD (chronic obstructive pulmonary disease) wi*02/02/2021 03/09/2023 Chronic respiratory failure with hypoxia (HCC) *08/06/2021 Moderate malnutrition (HCC) [E44.0] 01/22/2023 03/11/2023 Compression fracture of L4 lumbar vertebra, wit*03/11/2023 Moderate episode of recurrent major depressive *03/11/2023 PAUL (generalized anxiety disorder) [F41.1] 03/11/2023 Chronic pain syndrome [G89.4] 03/11/2023 03/11/2023 Former smoker [Z87.891] 04/10/2017 Diagnosed: 03/11/2023 H/O: CVA (cerebrovascular accident) [Z86.73] 11/22/2019 Diagnosed: 03/11/2023 Leukocytosis [D72.829] 04/10/2017 Diagnosed: 03/11/2023 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/07/2019 05/20/2023 Diagnosed: 03/11/2023 Neoplasm of uncertain behavior of skin [D48.5] 04/23/2016 Diagnosed: 03/11/2023 Nondisplaced fracture of neck of left femur (HC*11/06/2022 Diagnosed: 03/11/2023 Other specified complication of vascular prosth*08/06/2021 Diagnosed: 03/11/2023 PNA (pneumonia) [J18.9] 08/02/2019 Diagnosed: 03/11/2023 Right arm weakness [R29.898] 11/21/2019 Diagnosed: 03/11/2023 Poor venous access [I87.8] 12/19/2019 Diagnosed: 03/11/2023 S/P hysterectomy [Z90.710] 11/06/2019 Diagnosed: 03/11/2023 Sciatica [M54.30] 04/10/2017 Diagnosed: 03/11/2023 Shortness of breath [R06.02] 04/13/2018 Diagnosed: 03/11/2023 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] 04/10/2017 Diagnosed: 03/11/2023 Encounter Status:Closed by WHIT SHAY on 03/05/24 [facility] 12-27-2023 [facility]EL Telephone [facility] GONZALO DELUCA ([id number]) 1955 F Date Time Provider Department 12/27/23 HERMINIA CASE During your visit today, we recorded the following information about you: Whit Shay LPN 12/27/2023 12:51 PM Signed Type of letter/form/fax request - Home Health Care Orders Form received from [facility] on 12/26/23 floor and placed on MD desk () for completion. Completed form needs to be faxed to [phone]. Route to [place] when form completed for processing Whit Shay LPN 12/27/2023 3:31 PM Signed Request completed and faxed. Allergies As of Date: 12/27/2023 Noted Allergy Reaction SEASONAL ALLERGIES 08/16/2017 5 - Intolerance Date Reviewed: 09/08/2023 Reviewed by: Tate Weathers MA - Fully Assessed Reason for Visit: Orders [681] Prescriptions as of 12/27/2023 - alendronate (FOSAMAX) 70 mg tablet TAKE 1 TABLET BY MOUTH ONE TIME A WEEK. - albuterol HFA (PROVENTIL HFA, VENTOLIN HFA) 90 mcg/actuation inhaler Inhale 2 Puffs as instructed every 4 hours as needed for wheezing/shortness of breath. - oxyCODONE-acetaminophe n (PERCOCET) 5-325 mg tablet Take 1 tablet by mouth every 6 hours as needed for pain for up to 30 days. - tiotropium bromide (SPIRIVA RESPIMAT) 2.5 mcg/actuation inhaler INHALE 2 PUFFS BY MOUTH ONCE DAILY DIRECTED - mirtazapine (REMERON) 15 mg tablet take 1 tablet by mouth everyday at bedtime - fluticasone (FLONASE) 50 mcg/actuation nasal spray spray 2 sprays into each nostril every day - QUEtiapine (SEROQUEL) 100 mg tablet take 2 tablets by mouth at bedtime as needed - cyclobenzaprine (FLEXERIL) 5 mg tablet take 1 tablet by mouth twice a day as needed - buPROPion XL (WELLBUTRIN XL) 150 mg 24 hr tablet take 1 tablet by mouth every day - fluticasone-salmeterol (ADVAIR DISKUS) 250-50 mcg/dose inhaler Inhale 1 Puff as instructed two times a day. RINSE AND GARGLE MOUTH WITH WATER AFTER EACH USE. - PARoxetine (PAXIL) 40 mg tablet Take 1 tablet by mouth once daily. Take 1/2 tablet at bedtime for 2 weeks, then increase to full tablet QHS. - diclofenac (VOLTAREN ARTHRITIS PAIN) 1 % topical gel Apply 2 g to affected area four times daily. - montelukast (SINGULAIR) 10 mg tablet Take 10 mg by mouth daily at bedtime. - diclofenac (VOLTAREN) 1 % topical gel Apply 4 g to affected area. - atorvastatin (LIPITOR) 40 mg tablet TAKE 1 TABLET BY MOUTH EVERY DAY AT NIGHT - Nebulizers Use as directed. - albuterol (PROVENTIL) 2.5 mg /3 mL (0.083 %) nebulizer solution INHALE 3 ML VIA NEBULIZER EVERY 4 HOURS NEEDED FOR WHEEZE OR FOR SHORTNESS OF BREATH Problem List As Of Date 12/27/2023 Noted Resolved DDD (degenerative disc disease), lumbar [M51.36* Panlobular emphysema (HCC) [J43.1] Major depression, recurrent, chronic (HCC) [F33* Osteoporosis [M81.0] Pulmonary nodule, right [R91.1] Compression fracture of body of thoracic verteb*07/11/2018 Obesity, Class I, BMI 30-34.9 [E66.811] 12/07/2018 03/11/2023 Chronic midline low back pain without sciatica *03/23/2019 History of cervical cancer [Z85.41] 11/02/2019 COPD (chronic obstructive pulmonary disease) wi*02/02/2021 03/09/2023 Chronic respiratory failure with hypoxia (HCC) *08/06/2021 Moderate malnutrition (HCC) [E44.0] 01/22/2023 03/11/2023 Compression fracture of L4 lumbar vertebra, wit*03/11/2023 Moderate episode of recurrent major depressive *03/11/2023 PAUL (generalized anxiety disorder) [F41.1] 03/11/2023 Chronic pain syndrome [G89.4] 03/11/2023 03/11/2023 Former smoker [Z87.891] 04/10/2017 Diagnosed: 03/11/2023 H/O: CVA (cerebrovascular accident) [Z86.73] 11/22/2019 Diagnosed: 03/11/2023 Leukocytosis [D72.829] 04/10/2017 Diagnosed: 03/11/2023 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/07/2019 05/20/2023 Diagnosed: 03/11/2023 Neoplasm of uncertain behavior of skin [D48.5] 04/23/2016 Diagnosed: 03/11/2023 Nondisplaced fracture of neck of left femur (HC*11/06/2022 Diagnosed: 03/11/2023 Other specified complication of vascular prosth*08/06/2021 Diagnosed: 03/11/2023 PNA (pneumonia) [J18.9] 08/02/2019 Diagnosed: 03/11/2023 Right arm weakness [R29.898] 11/21/2019 Diagnosed: 03/11/2023 Poor venous access [I87.8] 12/19/2019 Diagnosed: 03/11/2023 S/P hysterectomy [Z90.710] 11/06/2019 Diagnosed: 03/11/2023 Sciatica [M54.30] 04/10/2017 Diagnosed: 03/11/2023 Shortness of breath [R06.02] 04/13/2018 Diagnosed: 03/11/2023 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] 04/10/2017 Diagnosed: 03/11/2023 Encounter Status:Closed by WHIT SHAY on 12/27/23 [facility] 12-13-2023 CNPN Telephone ([facility]) GONZALO DELUCA ([id number]) 1955 F Date Time Provider Department 12/13/23 HERMINIA CASE During your visit today, we recorded the following information about you: Whit Shay LPN 12/13/2023 11:03 AM Signed Type of letter/form/fax request - Home Health Care Orders Form received from [facility] on 12/12/23 floor and placed on MD desk () for completion. Completed form needs to be faxed to [phone]. Route to [place] when form completed for processing Herminia Case MD 12/13/2023 5:46 PM Signed Done. Whit Shay LPN 12/14/2023 7:56 AM Signed Request completed and faxed. Allergies As of Date: 12/13/2023 Noted Allergy Reaction SEASONAL ALLERGIES 08/16/2017 5 - Intolerance Date Reviewed: 09/08/2023 Reviewed by: Tate Weathers MA - Fully Assessed Reason for Visit: Results [95] Prescriptions as of 12/14/2023 - tiotropium bromide (SPIRIVA RESPIMAT) 2.5 mcg/actuation inhaler INHALE 2 PUFFS BY MOUTH ONCE DAILY DIRECTED - oxyCODONE-acetaminophe n (PERCOCET) 5-325 mg tablet Take 1 tablet by mouth every 6 hours as needed for pain for up to 30 days. - mirtazapine (REMERON) 15 mg tablet take 1 tablet by mouth everyday at bedtime - fluticasone (FLONASE) 50 mcg/actuation nasal spray spray 2 sprays into each nostril every day - QUEtiapine (SEROQUEL) 100 mg tablet take 2 tablets by mouth at bedtime as needed - cyclobenzaprine (FLEXERIL) 5 mg tablet take 1 tablet by mouth twice a day as needed - buPROPion XL (WELLBUTRIN XL) 150 mg 24 hr tablet take 1 tablet by mouth every day - fluticasone-salmeterol (ADVAIR DISKUS) 250-50 mcg/dose inhaler Inhale 1 Puff as instructed two times a day. RINSE AND GARGLE MOUTH WITH WATER AFTER EACH USE. - PARoxetine (PAXIL) 40 mg tablet Take 1 tablet by mouth once daily. Take 1/2 tablet at bedtime for 2 weeks, then increase to full tablet QHS. - diclofenac (VOLTAREN ARTHRITIS PAIN) 1 % topical gel Apply 2 g to affected area four times daily. - montelukast (SINGULAIR) 10 mg tablet Take 10 mg by mouth daily at bedtime. - diclofenac (VOLTAREN) 1 % topical gel Apply 4 g to affected area. - alendronate (FOSAMAX) 70 mg tablet TAKE 1 TABLET BY MOUTH ONE TIME A WEEK. - atorvastatin (LIPITOR) 40 mg tablet TAKE 1 TABLET BY MOUTH EVERY DAY AT NIGHT - Nebulizers Use as directed. - albuterol (PROVENTIL) 2.5 mg /3 mL (0.083 %) nebulizer solution INHALE 3 ML VIA NEBULIZER EVERY 4 HOURS NEEDED FOR WHEEZE OR FOR SHORTNESS OF BREATH - albuterol HFA (PROVENTIL HFA, VENTOLIN HFA) 90 mcg/actuation inhaler Inhale 2 Puffs as instructed every 4 hours as needed for wheezing/shortness of breath. Problem List As Of Date 12/13/2023 Noted Resolved DDD (degenerative disc disease), lumbar [M51.36] Panlobular emphysema (HCC) [J43.1] Major depression, recurrent, chronic (HCC) [F33* Osteoporosis [M81.0] Pulmonary nodule, right [R91.1] Compression fracture of body of thoracic verteb*07/11/2018 Obesity, Class I, BMI 30-34.9 [E66.9] 12/07/2018 03/11/2023 Chronic midline low back pain without sciatica *03/23/2019 History of cervical cancer [Z85.41] 11/02/2019 COPD (chronic obstructive pulmonary disease) wi*02/02/2021 03/09/2023 Chronic respiratory failure with hypoxia (HCC) *08/06/2021 Moderate malnutrition (HCC) [E44.0] 01/22/2023 03/11/2023 Compression fracture of L4 lumbar vertebra, wit*03/11/2023 Moderate episode of recurrent major depressive *03/11/2023 PAUL (generalized anxiety disorder) [F41.1] 03/11/2023 Chronic pain syndrome [G89.4] 03/11/2023 03/11/2023 Former smoker [Z87.891] 04/10/2017 Diagnosed: 03/11/2023 H/O: CVA (cerebrovascular accident) [Z86.73] 11/22/2019 Diagnosed: 03/11/2023 Leukocytosis [D72.829] 04/10/2017 Diagnosed: 03/11/2023 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/07/2019 05/20/2023 Diagnosed: 03/11/2023 Neoplasm of uncertain behavior of skin [D48.5] 04/23/2016 Diagnosed: 03/11/2023 Nondisplaced fracture of neck of left femur (HC*11/06/2022 Diagnosed: 03/11/2023 Other specified complication of vascular prosth*08/06/2021 Diagnosed: 03/11/2023 PNA (pneumonia) [J18.9] 08/02/2019 Diagnosed: 03/11/2023 Right arm weakness [R29.898] 11/21/2019 Diagnosed: 03/11/2023 Poor venous access [I87.8] 12/19/2019 Diagnosed: 03/11/2023 S/P hysterectomy [Z90.710] 11/06/2019 Diagnosed: 03/11/2023 Sciatica [M54.30] 04/10/2017 Diagnosed: 03/11/2023 Shortness of breath [R06.02] 04/13/2018 Diagnosed: 03/11/2023 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] 04/10/2017 Diagnosed: 03/11/2023 Encounter Status:Closed by WHIT SHAY on 12/14/23 [facility] 12-06-2023 ANUEL Telephone (ANALIA) GONZALO DELUCA ([id number]) 1955 F Date Time Provider Department 12/06/23 HERMINIA CASE During your visit today, we recorded the following information about you: Whit Shay LPN 12/06/2023 1:40 PM Signed Type of letter/form/fax request - Home Health Care Orders Plan of Care Certification Period-11/25/23 to 01/23/24 Form received from [facility] on 12/01/23 floor and placed on MD desk () for completion. Completed form needs to be faxed to [phone]. Route to [place] when form completed for processing Herminia Case MD 12/06/2023 2:50 PM Signed Done. Whit Shay LPN 12/06/2023 3:02 PM Signed Request completed and faxed. Allergies As of Date: 12/06/2023 Noted Allergy Reaction SEASONAL ALLERGIES 08/16/2017 5 - Intolerance Date Reviewed: 09/08/2023 Reviewed by: Tate Weathers MA - Fully Assessed Reason for Visit: Orders [681] Prescriptions as of 12/06/2023 - tiotropium bromide (SPIRIVA RESPIMAT) 2.5 mcg/actuation inhaler INHALE 2 PUFFS BY MOUTH ONCE DAILY DIRECTED - oxyCODONE-acetaminophe n (PERCOCET) 5-325 mg tablet Take 1 tablet by mouth every 6 hours as needed for pain for up to 30 days. - mirtazapine (REMERON) 15 mg tablet take 1 tablet by mouth everyday at bedtime - fluticasone (FLONASE) 50 mcg/actuation nasal spray spray 2 sprays into each nostril every day - QUEtiapine (SEROQUEL) 100 mg tablet take 2 tablets by mouth at bedtime as needed - cyclobenzaprine (FLEXERIL) 5 mg tablet take 1 tablet by mouth twice a day as needed - buPROPion XL (WELLBUTRIN XL) 150 mg 24 hr tablet take 1 tablet by mouth every day - fluticasone-salmeterol (ADVAIR DISKUS) 250-50 mcg/dose inhaler Inhale 1 Puff as instructed two times a day. RINSE AND GARGLE MOUTH WITH WATER AFTER EACH USE. - PARoxetine (PAXIL) 40 mg tablet Take 1 tablet by mouth once daily. Take 1/2 tablet at bedtime for 2 weeks, then increase to full tablet QHS. - diclofenac (VOLTAREN ARTHRITIS PAIN) 1 % topical gel Apply 2 g to affected area four times daily. - montelukast (SINGULAIR) 10 mg tablet Take 10 mg by mouth daily at bedtime. - diclofenac (VOLTAREN) 1 % topical gel Apply 4 g to affected area. - alendronate (FOSAMAX) 70 mg tablet TAKE 1 TABLET BY MOUTH ONE TIME A WEEK. - atorvastatin (LIPITOR) 40 mg tablet TAKE 1 TABLET BY MOUTH EVERY DAY AT NIGHT - Nebulizers Use as directed. - albuterol (PROVENTIL) 2.5 mg /3 mL (0.083 %) nebulizer solution INHALE 3 ML VIA NEBULIZER EVERY 4 HOURS NEEDED FOR WHEEZE OR FOR SHORTNESS OF BREATH - albuterol HFA (PROVENTIL HFA, VENTOLIN HFA) 90 mcg/actuation inhaler Inhale 2 Puffs as instructed every 4 hours as needed for wheezing/shortness of breath. Problem List As Of Date 12/06/2023 Noted Resolved DDD (degenerative disc disease), lumbar [M51.36] Panlobular emphysema (HCC) [J43.1] Major depression, recurrent, chronic (HCC) [F33* Osteoporosis [M81.0] Pulmonary nodule, right [R91.1] Compression fracture of body of thoracic verteb*07/11/2018 Obesity, Class I, BMI 30-34.9 [E66.9] 12/07/2018 03/11/2023 Chronic midline low back pain without sciatica *03/23/2019 History of cervical cancer [Z85.41] 11/02/2019 COPD (chronic obstructive pulmonary disease) wi*02/02/2021 03/09/2023 Chronic respiratory failure with hypoxia (HCC) *08/06/2021 Moderate malnutrition (HCC) [E44.0] 01/22/2023 03/11/2023 Compression fracture of L4 lumbar vertebra, wit*03/11/2023 Moderate episode of recurrent major depressive *03/11/2023 PAUL (generalized anxiety disorder) [F41.1] 03/11/2023 Chronic pain syndrome [G89.4] 03/11/2023 03/11/2023 Former smoker [Z87.891] 04/10/2017 Diagnosed: 03/11/2023 H/O: CVA (cerebrovascular accident) [Z86.73] 11/22/2019 Diagnosed: 03/11/2023 Leukocytosis [D72.829] 04/10/2017 Diagnosed: 03/11/2023 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/07/2019 05/20/2023 Diagnosed: 03/11/2023 Neoplasm of uncertain behavior of skin [D48.5] 04/23/2016 Diagnosed: 03/11/2023 Nondisplaced fracture of neck of left femur (HC*11/06/2022 Diagnosed: 03/11/2023 Other specified complication of vascular prosth*08/06/2021 Diagnosed: 03/11/2023 PNA (pneumonia) [J18.9] 08/02/2019 Diagnosed: 03/11/2023 Right arm weakness [R29.898] 11/21/2019 Diagnosed: 03/11/2023 Poor venous access [I87.8] 12/19/2019 Diagnosed: 03/11/2023 S/P hysterectomy [Z90.710] 11/06/2019 Diagnosed: 03/11/2023 Sciatica [M54.30] 04/10/2017 Diagnosed: 03/11/2023 Shortness of breath [R06.02] 04/13/2018 Diagnosed: 03/11/2023 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] 04/10/2017 Diagnosed: 03/11/2023 Encounter Status:Closed by WHIT SHAY on 12/06/23 [facility] GONZALO DELUCA ([id number]) 1955 F Date Time Provider Department 11/14/23 HERMINIA CASE During your visit today, we recorded the following information about you: Whit Shay LPN 11/14/2023 11:47 AM Signed Type of letter/form/fax request - Home Health Care Orders Form received from [facility] on 11/13/23 floor and placed on MD desk () for completion. Completed form needs to be faxed to . Route to [place] when form completed for processing Herminia Case MD 11/14/2023 12:51 PM Signed Done. Whit Shay LPN 11/14/2023 1:59 PM Signed Request completed and faxed. Allergies As of Date: 11/14/2023 Noted Allergy Reaction SEASONAL ALLERGIES 08/16/2017 5 - Intolerance Date Reviewed: 09/08/2023 Reviewed by: Tate Weathers MA - Fully Assessed Reason for Visit: Orders [851] Prescriptions as of 11/14/2023 - mirtazapine (REMERON) 15 mg tablet take 1 tablet by mouth everyday at bedtime - fluticasone (FLONASE) 50 mcg/actuation nasal spray spray 2 sprays into each nostril every day - oxyCODONE-acetaminophe n (PERCOCET) 5-325 mg tablet Take 1 tablet by mouth every 6 hours as needed for pain for up to 30 days. - QUEtiapine (SEROQUEL) 100 mg tablet take 2 tablets by mouth at bedtime as needed - cyclobenzaprine (FLEXERIL) 5 mg tablet take 1 tablet by mouth twice a day as needed - buPROPion XL (WELLBUTRIN XL) 150 mg 24 hr tablet take 1 tablet by mouth every day - fluticasone-salmeterol (ADVAIR DISKUS) 250-50 mcg/dose inhaler Inhale 1 Puff as instructed two times a day. RINSE AND GARGLE MOUTH WITH WATER AFTER EACH USE. - PARoxetine (PAXIL) 40 mg tablet Take 1 tablet by mouth once daily. Take 1/2 tablet at bedtime for 2 weeks, then increase to full tablet QHS. - diclofenac (VOLTAREN ARTHRITIS PAIN) 1 % topical gel Apply 2 g to affected area four times daily. - montelukast (SINGULAIR) 10 mg tablet Take 10 mg by mouth daily at bedtime. - diclofenac (VOLTAREN) 1 % topical gel Apply 4 g to affected area. - alendronate (FOSAMAX) 70 mg tablet TAKE 1 TABLET BY MOUTH ONE TIME A WEEK. - tiotropium bromide (SPIRIVA RESPIMAT) 2.5 mcg/actuation inhaler INHALE 2 PUFFS BY MOUTH ONCE DAILY DIRECTED - atorvastatin (LIPITOR) 40 mg tablet TAKE 1 TABLET BY MOUTH EVERY DAY AT NIGHT - Nebulizers Use as directed. - albuterol (PROVENTIL) 2.5 mg /3 mL (0.083 %) nebulizer solution INHALE 3 ML VIA NEBULIZER EVERY 4 HOURS NEEDED FOR WHEEZE OR FOR SHORTNESS OF BREATH - albuterol HFA (PROVENTIL HFA, VENTOLIN HFA) 90 mcg/actuation inhaler Inhale 2 Puffs as instructed every 4 hours as needed for wheezing/shortness of breath. Problem List As Of Date 11/14/2023 Noted Resolved DDD (degenerative disc disease), lumbar [M51.36] Panlobular emphysema (HCC) [J43.1] Major depression, recurrent, chronic (HCC) [F33* Osteoporosis [M81.0] Pulmonary nodule, right [R91.1] Compression fracture of body of thoracic verteb*07/11/2018 Obesity, Class I, BMI 30-34.9 [E66.9] 12/07/2018 03/11/2023 Chronic midline low back pain without sciatica *03/23/2019 History of cervical cancer [Z85.41] 11/02/2019 COPD (chronic obstructive pulmonary disease) wi*02/02/2021 03/09/2023 Chronic respiratory failure with hypoxia (HCC) *08/06/2021 Moderate malnutrition (HCC) [E44.0] 01/22/2023 03/11/2023 Compression fracture of L4 lumbar vertebra, wit*03/11/2023 Moderate episode of recurrent major depressive *03/11/2023 PAUL (generalized anxiety disorder) [F41.1] 03/11/2023 Chronic pain syndrome [G89.4] 03/11/2023 03/11/2023 Former smoker [Z87.891] 04/10/2017 Diagnosed: 03/11/2023 H/O: CVA (cerebrovascular accident) [Z86.73] 11/22/2019 Diagnosed: 03/11/2023 Leukocytosis [D72.829] 04/10/2017 Diagnosed: 03/11/2023 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/07/2019 05/20/2023 Diagnosed: 03/11/2023 Neoplasm of uncertain behavior of skin [D48.5] 04/23/2016 Diagnosed: 03/11/2023 Nondisplaced fracture of neck of left femur (HC*11/06/2022 Diagnosed: 03/11/2023 Other specified complication of vascular prosth*08/06/2021 Diagnosed: 03/11/2023 PNA (pneumonia) [J18.9] 08/02/2019 Diagnosed: 03/11/2023 Right arm weakness [R29.898] 11/21/2019 Diagnosed: 03/11/2023 Poor venous access [I87.8] 12/19/2019 Diagnosed: 03/11/2023 S/P hysterectomy [Z90.710] 11/06/2019 Diagnosed: 03/11/2023 Sciatica [M54.30] 04/10/2017 Diagnosed: 03/11/2023 Shortness of breath [R06.02] 04/13/2018 Diagnosed: 03/11/2023 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] 04/10/2017 Diagnosed: 03/11/2023 Encounter Status:Closed by WHIT SHAY on 11/14/23 [facility] GONZAL[facility] DELUCA ([id number]) 1955 F Date Time Provider Department 10/28/23 HERMINIA CASE During your visit today, we recorded the following information about you: Whit Shay LPN 10/28/2023 9:46 AM Signed Type of letter/form/fax request - Home Health Care Orders Form received from [facility] on 10/27/23 floor and placed on MD desk () for completion. Completed form needs to be faxed to [phone]. Route to [place] when form completed for processing Herminia Case MD 10/28/2023 1:56 PM Signed Done. Whit Shay LPN 10/28/2023 1:58 PM Signed Request completed and faxed. Allergies As of Date: 10/28/2023 Noted Allergy Reaction SEASONAL ALLERGIES 08/16/2017 5 - Intolerance Date Reviewed: 09/08/2023 Reviewed by: Tate Weathers MA - Fully Assessed Reason for Visit: Orders [681] Prescriptions as of 10/28/2023 - oxyCODONE-acetaminophe n (PERCOCET) 5-325 mg tablet Take 1 tablet by mouth every 6 hours as needed for pain for up to 30 days. - mirtazapine (REMERON) 15 mg tablet Take 1 tablet by mouth daily at bedtime. - QUEtiapine (SEROQUEL) 100 mg tablet take 2 tablets by mouth at bedtime as needed - cyclobenzaprine (FLEXERIL) 5 mg tablet take 1 tablet by mouth twice a day as needed - buPROPion XL (WELLBUTRIN XL) 150 mg 24 hr tablet take 1 tablet by mouth every day - fluticasone-salmeterol (ADVAIR DISKUS) 250-50 mcg/dose inhaler Inhale 1 Puff as instructed two times a day. RINSE AND GARGLE MOUTH WITH WATER AFTER EACH USE. - PARoxetine (PAXIL) 40 mg tablet Take 1 tablet by mouth once daily. Take 1/2 tablet at bedtime for 2 weeks, then increase to full tablet QHS. - diclofenac (VOLTAREN ARTHRITIS PAIN) 1 % topical gel Apply 2 g to affected area four times daily. - montelukast (SINGULAIR) 10 mg tablet Take 10 mg by mouth daily at bedtime. - diclofenac (VOLTAREN) 1 % topical gel Apply 4 g to affected area. - alendronate (FOSAMAX) 70 mg tablet TAKE 1 TABLET BY MOUTH ONE TIME A WEEK. - tiotropium bromide (SPIRIVA RESPIMAT) 2.5 mcg/actuation inhaler INHALE 2 PUFFS BY MOUTH ONCE DAILY DIRECTED - atorvastatin (LIPITOR) 40 mg tablet TAKE 1 TABLET BY MOUTH EVERY DAY AT NIGHT - fluticasone (FLONASE) 50 mcg/actuation nasal spray Use 2 Sprays in each nostril once daily. - Nebulizers Use as directed. - albuterol (PROVENTIL) 2.5 mg /3 mL (0.083 %) nebulizer solution INHALE 3 ML VIA NEBULIZER EVERY 4 HOURS NEEDED FOR WHEEZE OR FOR SHORTNESS OF BREATH - albuterol HFA (PROVENTIL HFA, VENTOLIN HFA) 90 mcg/actuation inhaler Inhale 2 Puffs as instructed every 4 hours as needed for wheezing/shortness of breath. Problem List As Of Date 10/28/2023 Noted Resolved DDD (degenerative disc disease), lumbar [M51.36] Panlobular emphysema (HCC) [J43.1] Major depression, recurrent, chronic (HCC) [F33* Osteoporosis [M81.0] Pulmonary nodule, right [R91.1] Compression fracture of body of thoracic verteb*07/11/2018 Obesity, Class I, BMI 30-34.9 [E66.9] 12/07/2018 03/11/2023 Chronic midline low back pain without sciatica *03/23/2019 History of cervical cancer [Z85.41] 11/02/2019 COPD (chronic obstructive pulmonary disease) wi*02/02/2021 03/09/2023 Chronic respiratory failure with hypoxia (HCC) *08/06/2021 Moderate malnutrition (HCC) [E44.0] 01/22/2023 03/11/2023 Compression fracture of L4 lumbar vertebra, wit*03/11/2023 Moderate episode of recurrent major depressive *03/11/2023 PAUL (generalized anxiety disorder) [F41.1] 03/11/2023 Chronic pain syndrome [G89.4] 03/11/2023 03/11/2023 Former smoker [Z87.891] 04/10/2017 H/O: CVA (cerebrovascular accident) [Z86.73] 11/22/2019 Leukocytosis [D72.829] 04/10/2017 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/07/2019 05/20/2023 Neoplasm of uncertain behavior of skin [D48.5] 04/23/2016 Nondisplaced fracture of neck of left femur (HC*11/06/2022 Other specified complication of vascular prosth*08/06/2021 PNA (pneumonia) [J18.9] 08/02/2019 Right arm weakness [R29.898] 11/21/2019 Poor venous access [I87.8] 12/19/2019 S/P hysterectomy [Z90.710] 11/06/2019 Sciatica [M54.30] 04/10/2017 Shortness of breath [R06.02] 04/13/2018 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] 04/10/2017 Encounter Status:Closed by WHIT SHAY on 10/28/23 [facility] 10-22-2023 CNPN Telephone (4CQ) GONZALO DELUCA ([id number]) 1955 F Date Time Provider Department 10/22/23 HERMINIA CASE 4CQ During your visit today, we recorded the following information about you: Elsy aCro 10/22/2023 11:53 AM Signed [facility] PT called to report that patient cancelled her PT appointment today. Melva Juárez PA-C 10/24/2023 11:49 AM Signed Noted. Melva Juárez PA-C Allergies As of Date: 10/22/2023 Noted Allergy Reaction SEASONAL ALLERGIES 08/16/2017 5 - Intolerance Date Reviewed: 09/08/2023 Reviewed by: Tate Weathers MA - Fully Assessed Reason for Visit: Patient Update [1234] Prescriptions as of 10/24/2023 - oxyCODONE-acetaminophe n (PERCOCET) 5-325 mg tablet Take 1 tablet by mouth every 6 hours as needed for pain for up to 30 days. - mirtazapine (REMERON) 15 mg tablet Take 1 tablet by mouth daily at bedtime. - QUEtiapine (SEROQUEL) 100 mg tablet take 2 tablets by mouth at bedtime as needed - cyclobenzaprine (FLEXERIL) 5 mg tablet take 1 tablet by mouth twice a day as needed - buPROPion XL (WELLBUTRIN XL) 150 mg 24 hr tablet take 1 tablet by mouth every day - fluticasone-salmeterol (ADVAIR DISKUS) 250-50 mcg/dose inhaler Inhale 1 Puff as instructed two times a day. RINSE AND GARGLE MOUTH WITH WATER AFTER EACH USE. - PARoxetine (PAXIL) 40 mg tablet Take 1 tablet by mouth once daily. Take 1/2 tablet at bedtime for 2 weeks, then increase to full tablet QHS. - diclofenac (VOLTAREN ARTHRITIS PAIN) 1 % topical gel Apply 2 g to affected area four times daily. - montelukast (SINGULAIR) 10 mg tablet Take 10 mg by mouth daily at bedtime. - diclofenac (VOLTAREN) 1 % topical gel Apply 4 g to affected area. - alendronate (FOSAMAX) 70 mg tablet TAKE 1 TABLET BY MOUTH ONE TIME A WEEK. - tiotropium bromide (SPIRIVA RESPIMAT) 2.5 mcg/actuation inhaler INHALE 2 PUFFS BY MOUTH ONCE DAILY DIRECTED - atorvastatin (LIPITOR) 40 mg tablet TAKE 1 TABLET BY MOUTH EVERY DAY AT NIGHT - fluticasone (FLONASE) 50 mcg/actuation nasal spray Use 2 Sprays in each nostril once daily. - Nebulizers Use as directed. - albuterol (PROVENTIL) 2.5 mg /3 mL (0.083 %) nebulizer solution INHALE 3 ML VIA NEBULIZER EVERY 4 HOURS NEEDED FOR WHEEZE OR FOR SHORTNESS OF BREATH - albuterol HFA (PROVENTIL HFA, VENTOLIN HFA) 90 mcg/actuation inhaler Inhale 2 Puffs as instructed every 4 hours as needed for wheezing/shortness of breath. Problem List As Of Date 10/22/2023 Noted Resolved DDD (degenerative disc disease), lumbar [M51.36] Panlobular emphysema (HCC) [J43.1] Major depression, recurrent, chronic (HCC) [F33* Osteoporosis [M81.0] Pulmonary nodule, right [R91.1] Compression fracture of body of thoracic verteb*07/11/2018 Obesity, Class I, BMI 30-34.9 [E66.9] 12/07/2018 03/11/2023 Chronic midline low back pain without sciatica *03/23/2019 History of cervical cancer [Z85.41] 11/02/2019 COPD (chronic obstructive pulmonary disease) wi*02/02/2021 03/09/2023 Chronic respiratory failure with hypoxia (HCC) *08/06/2021 Moderate malnutrition (HCC) [E44.0] 01/22/2023 03/11/2023 Compression fracture of L4 lumbar vertebra, wit*03/11/2023 Moderate episode of recurrent major depressive *03/11/2023 PAUL (generalized anxiety disorder) [F41.1] 03/11/2023 Chronic pain syndrome [G89.4] 03/11/2023 03/11/2023 Former smoker [Z87.891] 04/10/2017 H/O: CVA (cerebrovascular accident) [Z86.73] 11/22/2019 Leukocytosis [D72.829] 04/10/2017 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/07/2019 05/20/2023 Neoplasm of uncertain behavior of skin [D48.5] 04/23/2016 Nondisplaced fracture of neck of left femur (HC*11/06/2022 Other specified complication of vascular prosth*08/06/2021 PNA (pneumonia) [J18.9] 08/02/2019 Right arm weakness [R29.898] 11/21/2019 Poor venous access [I87.8] 12/19/2019 S/P hysterectomy [Z90.710] 11/06/2019 Sciatica [M54.30] 04/10/2017 Shortness of breath [R06.02] 04/13/2018 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] 04/10/2017 Encounter Status:Closed by MELVA JUÁREZ on 10/24/23 [facility] 10-18-2023 ANUEL Telephone ([facility]) GONZALO DELUCA ([id number]) 1955 F Date Time Provider Department 10/18/23 HERMINIA CASE During your visit today, we recorded the following information about you: Whit Shay KAMILAH 10/18/2023 3:01 PM Signed Type of letter/form/fax request - Home Health Care Orders Form received from [facility] on 10/18/23 floor and placed on MD desk () for completion. Completed form needs to be faxed to [phone]. Route to [place] when form completed for processing Jaspal Whit, KAMILAH 10/18/2023 3:53 PM Signed Request completed and faxed. Allergies As of Date: 10/18/2023 Noted Allergy Reaction SEASONAL ALLERGIES 08/16/2017 5 - Intolerance Date Reviewed: 09/08/2023 Reviewed by: Tate Weathers MA - Fully Assessed Reason for Visit: Orders [681] Prescriptions as of 10/18/2023 - oxyCODONE-acetaminophe n (PERCOCET) 5-325 mg tablet Take 1 tablet by mouth every 6 hours as needed for pain for up to 30 days. - mirtazapine (REMERON) 15 mg tablet Take 1 tablet by mouth daily at bedtime. - QUEtiapine (SEROQUEL) 100 mg tablet take 2 tablets by mouth at bedtime as needed - cyclobenzaprine (FLEXERIL) 5 mg tablet take 1 tablet by mouth twice a day as needed - buPROPion XL (WELLBUTRIN XL) 150 mg 24 hr tablet take 1 tablet by mouth every day - fluticasone-salmeterol (ADVAIR DISKUS) 250-50 mcg/dose inhaler Inhale 1 Puff as instructed two times a day. RINSE AND GARGLE MOUTH WITH WATER AFTER EACH USE. - PARoxetine (PAXIL) 40 mg tablet Take 1 tablet by mouth once daily. Take 1/2 tablet at bedtime for 2 weeks, then increase to full tablet QHS. - diclofenac (VOLTAREN ARTHRITIS PAIN) 1 % topical gel Apply 2 g to affected area four times daily. - montelukast (SINGULAIR) 10 mg tablet Take 10 mg by mouth daily at bedtime. - diclofenac (VOLTAREN) 1 % topical gel Apply 4 g to affected area. - alendronate (FOSAMAX) 70 mg tablet TAKE 1 TABLET BY MOUTH ONE TIME A WEEK. - tiotropium bromide (SPIRIVA RESPIMAT) 2.5 mcg/actuation inhaler INHALE 2 PUFFS BY MOUTH ONCE DAILY DIRECTED - atorvastatin (LIPITOR) 40 mg tablet TAKE 1 TABLET BY MOUTH EVERY DAY AT NIGHT - fluticasone (FLONASE) 50 mcg/actuation nasal spray Use 2 Sprays in each nostril once daily. - Nebulizers Use as directed. - albuterol (PROVENTIL) 2.5 mg /3 mL (0.083 %) nebulizer solution INHALE 3 ML VIA NEBULIZER EVERY 4 HOURS NEEDED FOR WHEEZE OR FOR SHORTNESS OF BREATH - albuterol HFA (PROVENTIL HFA, VENTOLIN HFA) 90 mcg/actuation inhaler Inhale 2 Puffs as instructed every 4 hours as needed for wheezing/shortness of breath. Problem List As Of Date 10/18/2023 Noted Resolved DDD (degenerative disc disease), lumbar [M51.36] Panlobular emphysema (HCC) [J43.1] Major depression, recurrent, chronic (HCC) [F33* Osteoporosis [M81.0] Pulmonary nodule, right [R91.1] Compression fracture of body of thoracic verteb*07/11/2018 Obesity, Class I, BMI 30-34.9 [E66.9] 12/07/2018 03/11/2023 Chronic midline low back pain without sciatica *03/23/2019 History of cervical cancer [Z85.41] 11/02/2019 COPD (chronic obstructive pulmonary disease) wi*02/02/2021 03/09/2023 Chronic respiratory failure with hypoxia (HCC) *08/06/2021 Moderate malnutrition (HCC) [E44.0] 01/22/2023 03/11/2023 Compression fracture of L4 lumbar vertebra, wit*03/11/2023 Moderate episode of recurrent major depressive *03/11/2023 PAUL (generalized anxiety disorder) [F41.1] 03/11/2023 Chronic pain syndrome [G89.4] 03/11/2023 03/11/2023 Former smoker [Z87.891] 04/10/2017 H/O: CVA (cerebrovascular accident) [Z86.73] 11/22/2019 Leukocytosis [D72.829] 04/10/2017 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/07/2019 05/20/2023 Neoplasm of uncertain behavior of skin [D48.5] 04/23/2016 Nondisplaced fracture of neck of left femur (HC*11/06/2022 Other specified complication of vascular prosth*08/06/2021 PNA (pneumonia) [J18.9] 08/02/2019 Right arm weakness [R29.898] 11/21/2019 Poor venous access [I87.8] 12/19/2019 S/P hysterectomy [Z90.710] 11/06/2019 Sciatica [M54.30] 04/10/2017 Shortness of breath [R06.02] 04/13/2018 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] 04/10/2017 Encounter Status:Closed by WHIT SHAY on 10/18/23 Normal [facility] CT CHEST WO IV CONTRASTon CT CHEST WO IV CONTRAST Normal [facility] CT Chest WO contraston 10-15 1. Severe emphysema with scattered areas of bronchiectasis and bronchial wall thickening as well as mucous plugging. Scattered centrilobular and branching nodular opacities suggests small airways disease/infection. Findings have demonstrated a waxing and waning appearance on prior studies. No pneumothorax or pleural effusions. 2. Osseous demineralization. Redemonstration of multiple compression fracture deformities most of which have been present on prior studies. Mild compression fracture deformity, inferior endplate T10 appears new from prior studies. Report Dictated on Electronically Signed By: Osiel Kwon MD Electronically Signed Date/Time: 10/16/2023 9:11 PM T [facility] Patient Name: GONZALO DELUCA : 1955 [facility]#: [id number] Exam Date/Time: 10/16/2023 20:29 Procedure: CT CHEST WO IV CONTRAST Ordering Provider: HARTLEY SAMANTHA Reason For Exam: L rib pain after fall CT CHEST WITHOUT CONTRAST CLINICAL INDICATION: Status post fall with left-sided rib pain TECHNIQUE: Serial axial CT images of the chest were acquired without administration of intravenous contrast. Coronal and sagittal reformatted images were also made available for interpretation. Dose reduction was employed with automated exposure control. Three dimensional volume rendered and maximum intensity projection reconstruction was performed concurrently with independent workstation software by the radiologist to better visualize the osseous structures in various orientations. COMPARISON: Several prior studies most recently CT thoracic spine 09/19/2023 FINDINGS: Examination is somewhat limited for the evaluation of solid organs and vascular structures due to the lack of intravenous contrast. Additional limitations: Patient motion and streak artifact. Heart/mediastinum: Heart size is within normal limits. Thoracic aorta and pulmonary trunk are normal in caliber. Trace to small pericardial effusion. No suspicious bulky adenopathy. Left-sided Mediport in place. Lungs/pleura: Severe emphysema with scattered areas of bronchiectasis and bronchial wall thickening. Scant inspissated secretions/mucous left mainstem bronchus with occlusion/mucus plugging involving multiple peripheral bronchi in a basilar distribution. Streaky opacities most marked most pronounced dependently. Biapical pleural-parenchymal scarring. Multiple centrilobular and branching nodular opacities in a basilar distribution. No pleural effusions. No pneumothorax. Visualized upper abdomen: Visualized liver appears homogeneous. Spleen appears within normal limits. No adrenal mass or nodule. No significant abnormality within the kidneys. Mild atherosclerosis. Osseous structures/soft tissues: Osseous structures appear demineralized. Severe compression fracture deformity T5 and to a lesser extent T8. Mild to moderate compression fracture deformities T6 and T7. Mild compression fracture deformity inferior endplate T10 which appears new. Moderate compressive fracture deformity L1, L2, and L3. Several remote appearing rib fracture deformities. No suspicious bulky axillary adenopathy. [facility] Roxie Kwon MD - 10/16/2023 Patient Name: GONZALO DELUCA : 1955 Exam Date/Time: 10/16/2023 20:29 Procedure: CT CHEST WO IV CONTRAST Ordering Provider: HARTLEY SAMANTHA Reason For Exam: L rib pain after fall CT CHEST WITHOUT CONTRAST CLINICAL INDICATION: Status post fall with left-sided rib pain TECHNIQUE: Serial axial CT images of the chest were acquired without administration of intravenous contrast. Coronal and sagittal reformatted images were also made available for interpretation. Dose reduction was employed with automated exposure control. Three dimensional volume rendered and maximum intensity projection reconstruction was performed concurrently with independent workstation software by the radiologist to better visualize the osseous structures in various orientations. COMPARISON: Several prior studies most recently CT thoracic spine 09/19/2023 FINDINGS: Examination is somewhat limited for the evaluation of solid organs and vascular structures due to the lack of intravenous contrast. Additional limitations: Patient motion and streak artifact. Heart/mediastinum: Heart size is within normal limits. Thoracic aorta and pulmonary trunk are normal in caliber. Trace to small pericardial effusion. No suspicious bulky adenopathy. Left-sided Mediport in place. Lungs/pleura: Severe emphysema with scattered areas of bronchiectasis and bronchial wall thickening. Scant inspissated secretions/mucous left mainstem bronchus with occlusion/mucus plugging involving multiple peripheral bronchi in a basilar distribution. Streaky opacities most marked most pronounced dependently. Biapical pleural-parenchymal scarring. Multiple centrilobular and branching nodular opacities in a basilar distribution. No pleural effusions. No pneumothorax. Visualized upper abdomen: Visualized liver appears homogeneous. Spleen appears within normal limits. No adrenal mass or nodule. No significant abnormality within the kidneys. Mild atherosclerosis. Osseous structures/soft tissues: Osseous structures appear demineralized. Severe compression fracture deformity T5 and to a lesser extent T8. Mild to moderate compression fracture deformities T6 and T7. Mild compression fracture deformity inferior endplate T10 which appears new. Moderate compressive fracture deformity L1, L2, and L3. Several remote appearing rib fracture deformities. No suspicious bulky axillary adenopathy. IMPRESSION: 1. Severe emphysema with scattered areas of bronchiectasis and bronchial wall thickening as well as mucous plugging. Scattered centrilobular and branching nodular opacities suggests small airways disease/infection. Findings have demonstrated a waxing and waning appearance on prior studies. No pneumothorax or pleural effusions. 2. Osseous demineralization. Redemonstration of multiple compression fracture deformities most of which have been present on prior studies. Mild compression fracture deformity, inferior endplate T10 appears new from prior studies. Report Dictated on Electronically Signed By: Osiel Kwon MD Electronically Signed Date/Time: 10/16/2023 9:11 PM EDT [facility] Radiology Study observation (narrative) Abe paz CT Chest WO contrastOrdered By: Roxie Kwon on 10-16-2023 [facility] Work Phone: ED Provider Noteon ED Provider Note Normal [facility] XR Hip - left 3 Viewson 09-19 FINDINGS/IMPRESSION: Limitations: Limited by suspected osseous demineralization and overlying bowel gas as well as patient positioning 3 cannulated screws traverse a subcapital left femoral neck fracture. Appearance is overall similar to prior study. No acute fracture or dislocation. Osteoarthritis right and left hip. Degenerative changes in the sacroiliac joints. Degenerative spondylosis in the visualized lumbar spine Report Dictated on Electronically Signed By: Osiel Kwon MD Electronically Signed Date/Time: 10/16/2023 8:46 PM EDT [facility] Patient Name: GONZALO DELUCA : 1955 Exam Date/Time: 10/16/2023 20:40 Procedure: XR HIP 2 OR 3 VW LEFT Ordering Provider: HARTLEY SAMANTHA Reason For Exam: L hip pain after fall LEFT HIP: CLINICAL INDICATION: Status post fall with left hip pain TECHNIQUE: AP view the pelvis, two views of the left hip. COMPARISON: 09/19/2023 [facility] Roxie Kwon MD - 10/16/2023 Patient Name: GONZALO DELUCA : 1955 Exam Date/Time: 10/16/2023 20:40 Procedure: XR HIP 2 OR 3 VW LEFT Ordering Provider: HARTLEY SAMANTHA Reason For Exam: L hip pain after fall LEFT HIP: CLINICAL INDICATION: Status post fall with left hip pain TECHNIQUE: AP view the pelvis, two views of the left hip. COMPARISON: 09/19/2023 IMPRESSION: FINDINGS/IMPRESSION: Limitations: Limited by suspected osseous demineralization and overlying bowel gas as well as patient positioning 3 cannulated screws traverse a subcapital left femoral neck fracture. Appearance is overall similar to prior study. No acute fracture or dislocation. Osteoarthritis right and left hip. Degenerative changes in the sacroiliac joints. Degenerative spondylosis in the visualized lumbar spine Report Dictated on Electronically Signed By: Osiel Kwon MD Electronically Signed Date/Time: 10/16/2023 8:46 PM EDT [facility] Radiology Study observation (narrative) Abe Cervantes 10-10-2023 CNPN Telephone (FAMDNA) GONZALO DELUCA ([id number]) 1955 F Date Time Provider Department 10/10/23 HERMINIA CASE [facility], [facility]1983 During your visit today, we recorded the following information about you: Whit Shay LPN 10/10/2023 1:42 PM Signed Type of letter/form/fax request - Home Health Care Orders Form received from [facility] on 10/06/23 floor and placed on MD desk () for completion. Completed form needs to be faxed to [phone]. Route to [place] when form completed for processing Herminia Case MD 10/11/2023 8:16 AM Signed Done. Whit Shay LPN 10/11/2023 8:19 AM Signed Request completed and faxed. Allergies As of Date: 10/10/2023 Noted Allergy Reaction SEASONAL ALLERGIES 08/16/2017 5 - Intolerance Date Reviewed: 09/08/2023 Reviewed by: Tate Weathers MA - Fully Assessed Reason for Visit: Orders [681] Prescriptions as of 10/11/2023 - mirtazapine (REMERON) 15 mg tablet Take 1 tablet by mouth daily at bedtime. - busPIRone (BUSPAR) 15 mg tablet Take 1 tablet by mouth three times a day. - oxyCODONE-acetaminophe n (PERCOCET) 5-325 mg tablet Take 1 tablet by mouth every 6 hours as needed for pain for up to 30 days. - QUEtiapine (SEROQUEL) 100 mg tablet take 2 tablets by mouth at bedtime as needed - cyclobenzaprine (FLEXERIL) 5 mg tablet take 1 tablet by mouth twice a day as needed - buPROPion XL (WELLBUTRIN XL) 150 mg 24 hr tablet take 1 tablet by mouth every day - fluticasone-salmeterol (ADVAIR DISKUS) 250-50 mcg/dose inhaler Inhale 1 Puff as instructed two times a day. RINSE AND GARGLE MOUTH WITH WATER AFTER EACH USE. - PARoxetine (PAXIL) 40 mg tablet Take 1 tablet by mouth once daily. Take 1/2 tablet at bedtime for 2 weeks, then increase to full tablet QHS. - diclofenac (VOLTAREN ARTHRITIS PAIN) 1 % topical gel Apply 2 g to affected area four times daily. - montelukast (SINGULAIR) 10 mg tablet Take 10 mg by mouth daily at bedtime. - diclofenac (VOLTAREN) 1 % topical gel Apply 4 g to affected area. - alendronate (FOSAMAX) 70 mg tablet TAKE 1 TABLET BY MOUTH ONE TIME A WEEK. - tiotropium bromide (SPIRIVA RESPIMAT) 2.5 mcg/actuation inhaler INHALE 2 PUFFS BY MOUTH ONCE DAILY DIRECTED - atorvastatin (LIPITOR) 40 mg tablet TAKE 1 TABLET BY MOUTH EVERY DAY AT NIGHT - fluticasone (FLONASE) 50 mcg/actuation nasal spray Use 2 Sprays in each nostril once daily. - Nebulizers Use as directed. - albuterol (PROVENTIL) 2.5 mg /3 mL (0.083 %) nebulizer solution INHALE 3 ML VIA NEBULIZER EVERY 4 HOURS NEEDED FOR WHEEZE OR FOR SHORTNESS OF BREATH - albuterol HFA (PROVENTIL HFA, VENTOLIN HFA) 90 mcg/actuation inhaler Inhale 2 Puffs as instructed every 4 hours as needed for wheezing/shortness of breath. Problem List As Of Date 10/10/2023 Noted Resolved DDD (degenerative disc disease), lumbar [M51.36] Panlobular emphysema (HCC) [J43.1] Major depression, recurrent, chronic (HCC) [F33* Osteoporosis [M81.0] Pulmonary nodule, right [R91.1] Compression fracture of body of thoracic verteb*07/11/2018 Obesity, Class I, BMI 30-34.9 [E66.9] 12/07/2018 03/11/2023 Chronic midline low back pain without sciatica *03/23/2019 History of cervical cancer [Z85.41] 11/02/2019 COPD (chronic obstructive pulmonary disease) wi*02/02/2021 03/09/2023 Chronic respiratory failure with hypoxia (HCC) *08/06/2021 Moderate malnutrition (HCC) [E44.0] 01/22/2023 03/11/2023 Compression fracture of L4 lumbar vertebra, wit*03/11/2023 Moderate episode of recurrent major depressive *03/11/2023 PAUL (generalized anxiety disorder) [F41.1] 03/11/2023 Chronic pain syndrome [G89.4] 03/11/2023 03/11/2023 Former smoker [Z87.891] 04/10/2017 H/O: CVA (cerebrovascular accident) [Z86.73] 11/22/2019 Leukocytosis [D72.829] 04/10/2017 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/07/2019 05/20/2023 Neoplasm of uncertain behavior of skin [D48.5] 04/23/2016 Nondisplaced fracture of neck of left femur (HC*11/06/2022 Other specified complication of vascular prosth*08/06/2021 PNA (pneumonia) [J18.9] 08/02/2019 Right arm weakness [R29.898] 11/21/2019 Poor venous access [I87.8] 12/19/2019 S/P hysterectomy [Z90.710] 11/06/2019 Sciatica [M54.30] 04/10/2017 Shortness of breath [R06.02] 04/13/2018 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] 04/10/2017 Encounter Status:Closed by WHIT SHAY on 10/11/23 [facility] 10-06-2023 [facility] GONZALO DELUCA ([id number]) 1955 F Date Time Provider Department 10/06/23 HERMINIA CASE During your visit today, we recorded the following information about you: Jessica Castro 10/06/2023 10:34 AM Signed [facility] is calling Herminia Case MD today to report patient's home health care physical therapy will be delayed a week as patient informed them that she is not feeling well.. Patient has been identified by name and birthdate. Duration of symptoms: N/A Person calling: caregiver: [facility] Call patient at: at home [phone] (home) [phone] (cell) Was an appointment scheduled: No Closing statement: Jessica Whitley Pss Allergies As of Date: 10/06/2023 Noted Allergy Reaction SEASONAL ALLERGIES 08/16/2017 5 - Intolerance Date Reviewed: 09/08/2023 Reviewed by: Tate Weathers MA - Fully Assessed Reason for Visit: Home Care [4073] Cmt: Physical therapy delayed 1 week Prescriptions as of 10/06/2023 - mirtazapine (REMERON) 15 mg tablet Take 1 tablet by mouth daily at bedtime. - busPIRone (BUSPAR) 15 mg tablet Take 1 tablet by mouth three times a day. - oxyCODONE-acetaminophe n (PERCOCET) 5-325 mg tablet Take 1 tablet by mouth every 6 hours as needed for pain for up to 30 days. - QUEtiapine (SEROQUEL) 100 mg tablet take 2 tablets by mouth at bedtime as needed - cyclobenzaprine (FLEXERIL) 5 mg tablet take 1 tablet by mouth twice a day as needed - buPROPion XL (WELLBUTRIN XL) 150 mg 24 hr tablet take 1 tablet by mouth every day - fluticasone-salmeterol (ADVAIR DISKUS) 250-50 mcg/dose inhaler Inhale 1 Puff as instructed two times a day. RINSE AND GARGLE MOUTH WITH WATER AFTER EACH USE. - PARoxetine (PAXIL) 40 mg tablet Take 1 tablet by mouth once daily. Take 1/2 tablet at bedtime for 2 weeks, then increase to full tablet QHS. - diclofenac (VOLTAREN ARTHRITIS PAIN) 1 % topical gel Apply 2 g to affected area four times daily. - montelukast (SINGULAIR) 10 mg tablet Take 10 mg by mouth daily at bedtime. - diclofenac (VOLTAREN) 1 % topical gel Apply 4 g to affected area. - alendronate (FOSAMAX) 70 mg tablet TAKE 1 TABLET BY MOUTH ONE TIME A WEEK. - tiotropium bromide (SPIRIVA RESPIMAT) 2.5 mcg/actuation inhaler INHALE 2 PUFFS BY MOUTH ONCE DAILY DIRECTED - atorvastatin (LIPITOR) 40 mg tablet TAKE 1 TABLET BY MOUTH EVERY DAY AT NIGHT - fluticasone (FLONASE) 50 mcg/actuation nasal spray Use 2 Sprays in each nostril once daily. - Nebulizers Use as directed. - albuterol (PROVENTIL) 2.5 mg /3 mL (0.083 %) nebulizer solution INHALE 3 ML VIA NEBULIZER EVERY 4 HOURS NEEDED FOR WHEEZE OR FOR SHORTNESS OF BREATH - albuterol HFA (PROVENTIL HFA, VENTOLIN HFA) 90 mcg/actuation inhaler Inhale 2 Puffs as instructed every 4 hours as needed for wheezing/shortness of breath. Problem List As Of Date 10/06/2023 Noted Resolved DDD (degenerative disc disease), lumbar [M51.36] Panlobular emphysema (HCC) [J43.1] Major depression, recurrent, chronic (HCC) [F33* Osteoporosis [M81.0] Pulmonary nodule, right [R91.1] Compression fracture of body of thoracic verteb*07/11/2018 Obesity, Class I, BMI 30-34.9 [E66.9] 12/07/2018 03/11/2023 Chronic midline low back pain without sciatica *03/23/2019 History of cervical cancer [Z85.41] 11/02/2019 COPD (chronic obstructive pulmonary disease) wi*02/02/2021 03/09/2023 Chronic respiratory failure with hypoxia (HCC) *08/06/2021 Moderate malnutrition (HCC) [E44.0] 01/22/2023 03/11/2023 Compression fracture of L4 lumbar vertebra, wit*03/11/2023 Moderate episode of recurrent major depressive *03/11/2023 PAUL (generalized anxiety disorder) [F41.1] 03/11/2023 Chronic pain syndrome [G89.4] 03/11/2023 03/11/2023 Former smoker [Z87.891] 04/10/2017 H/O: CVA (cerebrovascular accident) [Z86.73] 11/22/2019 Leukocytosis [D72.829] 04/10/2017 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/07/2019 05/20/2023 Neoplasm of uncertain behavior of skin [D48.5] 04/23/2016 Nondisplaced fracture of neck of left femur (HC*11/06/2022 Other specified complication of vascular prosth*08/06/2021 PNA (pneumonia) [J18.9] 08/02/2019 Right arm weakness [R29.898] 11/21/2019 Poor venous access [I87.8] 12/19/2019 S/P hysterectomy [Z90.710] 11/06/2019 Sciatica [M54.30] 04/10/2017 Shortness of breath [R06.02] 04/13/2018 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] 04/10/2017 Encounter Status:Closed by JOAQUINA MARTINEZ on 10/06/23 Normal [facility] CARECOORDon 09-26-2023 CARECOORD Patient Choice Patient Name: GONZALO DELUCA Date of : 1955 Normal [facility] BASIC METABOLIC PANELon 07-0 Anion gap [Moles/Vol] 10 mmol/L Normal 3-13 [facility] Comment on above: Performed By: #### L AB15 ####Natural Gas Inspector: HANS PAULSON ([id number])[facility] ([facility])[address] [place] [address] Calcium [Mass/Vol] 8.9 mg/dL Normal 8.4-10.4 [facility] Comment on above: Performed By: #### L AB15 ####Natural Gas Inspector: HANS PAULSON ([id number])[facility] [place] (SB[facility]AB)[address] Chloride [Moles/Vol] 100 mmol/L Normal 98-107 [facility] Comment on above: Performed By: #### L AB15 ####Natural Gas Inspector: HANS PAULSON ([id number])[facility] [place] ([facility])[address] CO2 [Moles/Vol] 30 mmol/L Normal 22-30 [facility] Comment on above: Performed By: #### L AB15 ####Natural Gas Inspector: HANS PAULSON ([id number])[facility] [place] ([facility])[address] Creatinine [Mass/Vol] 0.39 mg/dL Low 0.52-1.04 [facility] Comment on above: Performed By: #### L AB15 ####Natural Gas Inspector: HANS PAULSON ([id number])[facility] [place] ([facility])[address] GLOMERULAR FILTRATION RATE ML/MIN/1.73 SQ M.PREDICTED >90.0 Normal >60.0 [facility] Comment on above: Result Comment: Calc ulation based on the Chronic Kidney Disease Epidemiology Collaboration (CKD-EPI) equation refit without adjustment for race Performed By: #### L AB15 ####Natural Gas Inspector: HANS PAULSON ([id number])[facility] [place] (SB[facility]AB)[address] [place] [address] [place] Glucose [Mass/Vol] 109 mg/dL High 70-100 [facility] Comment on above: Performed By: #### L AB15 ####Natural Gas Inspector: HANS PAULSON ([id number])[facility] [place] (SB[facility])[address] [place] [address] [place] Potassium [Moles/Vol] 4.2 mmol/L Normal 3.5-5.1 [facility] Comment on above: Performed By: #### L AB15 ####Natural Gas Inspector: HANS PAULSON ([id number])[facility] ([facility])[address] Sodium [Moles/Vol] 140 mmol/L Normal 135-145 [facility] Comment on above: Performed By: #### L AB15 ####Natural Gas Inspector: HANS PAULSON ([id number])[facility] ([facility])[address] Urea nitrogen [Mass/Vol] 11 mg/dL Normal 7-17 [facility] Comment on above: Performed By: #### L AB15 ####Natural Gas Inspector: HANS PAULSON ([id number])[facility] ([facility])[address] [place] [address] Basic metabolic 1998 panelon 09-22-2023 Anion gap [Moles/Vol] 10 mmol/L 3 - 13 mmol/L [facility] Calcium [Mass/Vol] 8.9 mg/dL 8.4 - 10. 4 mg/dL [facility] Chloride [Moles/Vol] 100 mmol/L 98 - 10 7 mmol/L [facility] CO2 [Moles/Vol] 30 mmol/L 22 - 30 mmol/L [facility] Creatinine [Mass/Vol] 0.39 mg/dL Low 0.52 - 1.04 mg/dL [facility] GFR/1.73 sq M.predicted MDRD (S/P/Bld) [Vol rate/Area] - PINF [facility] Comment on above: Calculation based on the Chronic Kidney Disease Epidemiology Collaboration (CKD-EPI) equation refit without adjustment for race Glucose [Mass/Vol] 109 mg/dL High 70 - 100 mg/dL [facility] Interpretation and review of laboratory results Abnormal [facility] Potassium [Moles/Vol] 4.2 mmol/L 3.5 - 5.1 mmol/L [facility] Sodium [Moles/Vol] 140 mmol/L 135 - 145 mmol/L [facility] Urea nitrogen [Mass/Vol] 11 mg/dL 7 - 17 mg/d L [facility] CARECOORDon 09-22-2023 CARECOORD Normal [facility] CBC W Auto Differential pane l (Bld)Ordered By: Rolando Shelton on 09-22-2023 Basophils (Bld) [#/Vol] 0.1 10*3/uL 0.0 - 0.2 10*3/uL [facility] Basophils/100 WBC (Bld) 0.5 % 0.0 - 2.0 % [facility] Eosinophils (Bld) [#/Vol] 0.1 10*3/uL 0.0 - 0.5 10*3/uL [facility] Eosinophils/100 WBC (Bld) 1.3 % 0.0 - 6.0 % [facility] Erythrocyte distribution width (RBC) [Ratio] 13.2 % 11.5 - 15.0 % [facility] Hematocrit (Bld) [Volume fraction] 37.5 % 35.0 - 47.0 % [facility] Hemoglobin (Bld) [Mass/Vol] 11.9 g/dL 11.7 - 16.0 g/dL [facility] Immature granulocytes (Bld) [#/Vol] 0.0 10*3/uL NINF - 0.1 10*3/uL [facility] Immature granulocytes/100 WBC (Bld) 0.3 % 0.0 - 2.0 % [facility] Interpretation and review of laboratory results Abnormal [facility] Lymphocytes (Bld) [#/Vol] 0.8 10*3/uL Low 1.0 - 4.3 10*3/uL [facility] Lymphocytes/100 WBC (Bld) 8.6 % Low 15.0 - 45.0 % [facility] MCH (RBC) [Entitic mass] 30.3 pg 26. 0 - 34.0 pg [facility] MCHC (RBC) [Mass/Vol] 31.7 % 30.5 - 36.0 % [facility] MCV (RBC) [Entitic vol] 95.4 fL 77.0 - 99.0 fL [facility] Monocytes (Bld) [#/Vol] 0.5 10*3/uL 0.0 - 0.9 10*3/uL [facility] Monocytes/100 WBC (Bld) 5.3 % 5.0 - 13.0 % [facility] Neutrophils (Bld) [#/Vol] 8.2 10*3/uL High 1.8 - 7.5 10*3/uL [facility] Neutrophils/100 WBC (Bld) 84.0 % High 38.0 - 82.0 % [facility] Nucleated RBC/100 WBC (Bld) [Ratio] 0.0 % [facility] Platelet mean volume (Bld) [Entitic vol] 9.2 fL 9.0 - 12.7 fL [facility] Platelets (Bld) [#/Vol] 289 10*3/uL 140 - 440 10*3/uL [facility] RBC (Bld) [#/Vol] 3.93 10*6/uL 3.80 - 5.2 0 10*6/uL [facility] WBC (Bld) [#/Vol] 9.8 10*3/uL 3.6 - 10.7 10*3/uL [facility] CBC WITH AUTO DIFFERENTIALon 09-22-2023 Basophils (Bld) [#/Vol] 0.1 10*3/uL Normal 0.0-0.2 [facility] Comment on above: Performed By: #### L [id number] ####Natural Gas Inspector: HANS PAULSON ([id number])[facility] ([facility])[address] Basophils/100 WBC (Bld) 0.5 % Normal 0.0-2.0 [facility] Comment on above: Performed By: #### L [id number] ####Natural Gas Inspector: HANS PAULSON ([id number])[facility] ([facility])[address] [place] [address] [place] Eosinophils (Bld) [#/Vol] 0.1 10*3/uL Normal 0.0-0.5 [facility] Comment on above: Performed By: #### L [id number] ####Natural Gas Inspector: HANS PAULSON ([id number])[facility] (SBHLAB)[address] [place] [address] [place] Eosinophils/100 WBC (Bld) 1.3 % Normal 0.0-6.0 [facility] Comment on above: Performed By: #### L [id number] ####Natural Gas Inspector: HANS PAULSON ([id number])[facility]ENTERNorma [facility]ENTERMarisa ([facility])[address] [place] [address] Erythrocyte distribution width (RBC) [Ratio] 13.2 % Normal 11.5-15.0 [facility] Comment on above: Performed By: #### L [id number] ####Natural Gas Inspector: HANS PAULSON ([id number])[facility] ([facility])[address] [place] [address] Hematocrit (Bld) [Volume fraction] 37.5 % Normal 35.0-47.0 [facility] Comment on above: Performed By: #### L [id number] ####Natural Gas Inspector: HANS PAULSON ([id number])[facility] ([facility])[address] [place] [address] Hemoglobin (Bld) [Mass/Vol] 11.9 g/dL Normal 11.7-16.0 [facility] Comment on above: Performed By: #### L [id number] ####Natural Gas Inspector: HANS PAULSON ([id number])[facility] ([facility])[address] [place] [address] IMMATURE GRANS % 0.3 % Normal 0.0-2.0 [facility] Comment on above: Performed By: #### L [id number] ####Natural Gas Inspector: HANS PAULSON ([id number])[facility] ([facility])[address] [place] [address] IMMATURE GRANS ABSOLUTE 0.0 10*3/uL Normal <0.1 [facility] Comment on above: Performed By: #### L [id number] ####Natural Gas Inspector: HANS PAULSON ([id number])[facility] ([facility])[address] [place] [address] Lymphocytes (Bld) [#/Vol] 0.8 10*3/uL Low 1.0-4.3 [facility] Comment on above: Performed By: #### L [id number] ####Natural Gas Inspector: HANS PAULSON ([id number])[facility] [place] ([facility])[address] Lymphocytes/100 WBC (Bld) 8.6 % Low 15.0-45.0 [facility] Comment on above: Performed By: #### L [id number] ####Natural Gas Inspector: HANS PAULSON ([id number])[facility] (SB[facility]AB)[address] MCH (RBC) [Entitic mass] 30.3 pg Normal 26.0-34.0 [facility] Comment on above: Performed By: #### L [id number] ####Natural Gas Inspector: HANS PAULSON ([id number])[facility] (SB[facility]AB)[address] [place] [address] MCHC 31.7 % Normal 30.5-36.0 [facility] Comment on above: Performed By: #### L [id number] ####Natural Gas Inspector: HANS APULSON ([id number])[facility] ([facility])[address] [place] [address] MCV (RBC) [Entitic vol] 95.4 fL Normal 77.0-99.0 [facility] Comment on above: Performed By: #### L [id number] ####Natural Gas Inspector: HANS PAULSON ([id number])[facility] ([facility])[address] [place] [address] Monocytes (Bld) [#/Vol] 0.5 10*3/uL Normal 0.0-0.9 [facility] Comment on above: Performed By: #### L [id number] ####Natural Gas Inspector: HANS PAULSON ([id number])[facility] ([facility])[address] Monocytes/100 WBC (Bld) 5.3 % Normal 5.0-13.0 [facility] Comment on above: Performed By: #### L [id number] ####Natural Gas Inspector: HANS PAULSON ([id number])[facility] [place] (SBHLAB)[address] NEUTROPHILS ABSOLUTE 8.2 10*3/uL High 1.8-7.5 [facility] Comment on above: Performed By: #### L [id number] ####Natural Gas Inspector: HANS PAULSON ([id number])[facility] [place] ([facility])[address] Neutrophils/100 WBC (Bld) 84.0 % High 38.0-82.0 [facility] Comment on above: Performed By: #### L [id number] ####Natural Gas Inspector: HANS PAULSON ([id number])[facility] [place] ([facility])[address] NRBC 0.0 /100 WBCs Normal 0.0-2.0 [facility] Comment on above: Performed By: #### L [id number] ####Natural Gas Inspector: HANS PAULSON ([id number])[facility] [place] ([facility])[address] Platelet mean volume (Bld) [Entitic vol] 9.2 fL Normal 9.0-12.7 [facility] Comment on above: Performed By: #### L [id number] ####Natural Gas Inspector: HANS PAULSON ([id number])[facility] [place] ([facility])[address] [place] [address] [place] Platelets (Bld) [#/Vol] 289 10*3/uL Normal 140-440 [facility] Comment on above: Performed By: #### L [id number] ####Natural Gas Inspector: HANS PAULSON ([id number])[facility] [place] ([facility])[address] [place] [address] [place] RBC (Bld) [#/Vol] 3.93 10*6/uL Normal 3.80-5.20 [facility] Comment on above: Performed By: #### L [id number] ####Natural Gas Inspector: HANS PAULSON ([id number])[facility] [place]LA[place] (SB[facility]AB)[address] WBC (Bld) [#/Vol] 9.8 10*3/uL Normal 3.6-10.7 [facility] Comment on above: Performed By: #### L [id number] ####Natural Gas Inspector: HANS PAULSON ([id number])[facility]ENTERNorma [facility]ENTERMarisa ([facility]AB)[address] IDNon 09-22-2023 IDN The patient is Moderately Unstable - Medium risk of patient condition declining or worsening The patient's goals for the shift include rest The clinical goals for the shift include safety Normal [facility] Progress Noteon 09-22-2023 Progress Note Patient chart is reviewed. Currently rounding. Full note to follow. Normal [facility] 25-hydroxyvitamin D3 [Mass/V ol]on 09-21-2023 Interpretation and review of laboratory results Normal [facility] Therapy is based on measurement of Total 25-OHD with the following classification levels: Less than 20 ng/mL: Indicative of Vit D deficiency 20-30 ng/mL: Suggests Vit D insufficiency Optimal: Greater than or equal to 30 ng/mL Test performed by [employer] Competitive Immunoassay, measuring Total Vitamin D, not individual fractions. [facility] [id number] 09-21-2023 [id number] Normal [facility] BASIC METABOLIC PANELon 07-0 Anion gap [Moles/Vol] 2 mmol/L Low 3-13 [facility] Comment on above: Performed By: #### L [id number], [id number], LAB15, LAB67 ####Natural Gas Inspector: HANS PAULSON ([id number])[facility] ([facility])[address] Calcium [Mass/Vol] 9.1 mg/dL Normal 8.4-10.4 [facility] Comment on above: Performed By: #### L [id number], [id number], LAB15, LAB67 ####Natural Gas Inspector: HANS PAULSON ([id number])[facility]ENTERNorma [facility]ENTERSTEVEN (SBHLAB)[address] Chloride [Moles/Vol] 102 mmol/L Normal 98-107 [facility] Comment on above: Performed By: #### L AB129, [id number], LAB15, LAB67 ####Natural Gas Inspector: HANS PAULSON ([id number])[facility] CO2 [Moles/Vol] 35 mmol/L High 22-30 [facility] Comment on above: Performed By: #### L AB129, [id number], LAB15, LAB67 ####Natural Gas Inspector: HANS PAULSON ([id number])[facility] ([facility])[address] Creatinine [Mass/Vol] 0.49 mg/dL Low 0.52-1.04 [facility] Comment on above: Performed By: #### L AB129, [id number], LAB15, LAB67 ####Natural Gas Inspector: HANS PAULSON ([id number])[facility] ([facility])[address] [place] [address] GLOMERULAR FILTRATION RATE ML/MIN/1.73 SQ M.PREDICTED >90.0 Normal >60.0 [facility] Comment on above: Result Comment: Calc ulation based on the Chronic Kidney Disease Epidemiology Collaboration (CKD-EPI) equation refit without adjustment for race Performed By: #### L AB129, [id number], LAB15, LAB67 ####Natural Gas Inspector: HANS PAULSON ([id number])[facility] ([facility])[address] Glucose [Mass/Vol] 97 mg/dL Normal 70-100 [facility] Comment on above: Performed By: #### L AB129, [id number], LAB15, LAB67 ####Natural Gas Inspector: HANS PAULSON ([id number])[facility] ([facility])[address] Potassium [Moles/Vol] 3.1 mmol/L Low 3.5-5.1 [facility] Comment on above: Performed By: #### L AB129, [id number], LAB15, LAB67 ####Natural Gas Inspector: HANS AGUILARCER ([id number])[facility] CAN[facility]ER CENTERNorma [facility] ([facility])[address] Sodium [Moles/Vol] 139 mmol/L Normal 135-145 [facility] Comment on above: Performed By: #### L AB129, DLZ801, LAB15, LAB67 ####Natural Gas Inspector: HANS WALDROPKimESCOBAR ([id number])[facility] MA[facility] ([facility])[address] Urea nitrogen [Mass/Vol] 18 mg/dL High 7-17 [facility] Comment on above: Performed By: #### L AB129, [id number], LAB15, LAB67 ####Natural Gas Inspector: HANS ALCANTARESCOBAR ([id number])[facility] ([facility])[address] Basic metabolic 1998 panelon 09-21-2023 Anion gap [Moles/Vol] 2 mmol/L Low 3 - 13 mmol/L [facility] Calcium [Mass/Vol] 9.1 mg/dL 8.4 - 10. 4 mg/dL [facility] Chloride [Moles/Vol] 102 mmol/L 98 - 10 7 mmol/L [facility] CO2 [Moles/Vol] 35 mmol/L High 22 - 30 mmol/L [facility] Creatinine [Mass/Vol] 0.49 mg/dL Low 0.52 - 1.04 mg/dL [facility] GFR/1.73 sq M.predicted MDRD (S/P/Bld) [Vol rate/Area] - PINF [facility] Comment on above: Calculation based on the Chronic Kidney Disease Epidemiology Collaboration (CKD-EPI) equation refit without adjustment for race Glucose [Mass/Vol] 97 mg/dL 70 - 100 mg/dL [facility] Potassium [Moles/Vol] 3.1 mmol/L Low 3.5 - 5.1 mmol/L [facility] Sodium [Moles/Vol] 139 mmol/L 135 - 145 mmol/L [facility] Urea nitrogen [Mass/Vol] 18 mg/dL High 7 - 17 mg/d L [facility] CARECOORDon 07-03-2024 CARECOHACKBERRY Normal [facility] CARECOHACKBERRY Normal [facility] CBC W Auto Differential pane l (Bld)Ordered By: Crystal Dupont on 09-21-2023 Basophils (Bld) [#/Vol] 0.1 10*3/uL 0.0 - 0.2 10*3/uL [facility] Basophils/100 WBC (Bld) 0.5 % 0.0 - 2.0 % [facility] Eosinophils (Bld) [#/Vol] 0.8 10*3/uL High 0.0 - 0.5 10*3/uL [facility] Eosinophils/100 WBC (Bld) 8.2 % High 0.0 - 6.0 % [facility] Erythrocyte distribution width (RBC) [Ratio] 13.2 % 11.5 - 15.0 % [facility] Hematocrit (Bld) [Volume fraction] 33.9 % Low 35.0 - 47.0 % [facility] Hemoglobin (Bld) [Mass/Vol] 10.6 g/dL Low 11.7 - 16.0 g/dL [facility] Immature granulocytes (Bld) [#/Vol] 0.0 10*3/uL NINF - 0.1 10*3/uL [facility] Immature granulocytes/100 WBC (Bld) 0.2 % 0.0 - 2.0 % [facility] Interpretation and review of laboratory results Abnormal [facility] Lymphocytes (Bld) [#/Vol] 0.8 10*3/uL Low 1.0 - 4.3 10*3/uL [facility] Lymphocytes/100 WBC (Bld) 8.7 % Low 15.0 - 45.0 % [facility] MCH (RBC) [Entitic mass] 30.2 pg 26. 0 - 34.0 pg [facility] MCHC (RBC) [Mass/Vol] 31.3 % 30.5 - 36.0 % [facility] MCV (RBC) [Entitic vol] 96.6 fL 77.0 - 99.0 fL [facility] Monocytes (Bld) [#/Vol] 0.7 10*3/uL 0.0 - 0.9 10*3/uL [facility] Monocytes/100 WBC (Bld) 7.1 % 5.0 - 13.0 % [facility] Neutrophils (Bld) [#/Vol] 7.0 10*3/uL 1.8 - 7.5 10*3/uL [facility] Neutrophils/100 WBC (Bld) 75.3 % 38.0 - 82.0 % [facility] Nucleated RBC/100 WBC (Bld) [Ratio] 0.0 % [facility] Platelet mean volume (Bld) [Entitic vol] 9.5 fL 9.0 - 12.7 fL [facility] Platelets (Bld) [#/Vol] 217 10*3/uL 140 - 440 10*3/uL [facility] RBC (Bld) [#/Vol] 3.51 10*6/uL Low 3.80 - 5.2 0 10*6/uL [facility] WBC (Bld) [#/Vol] 9.4 10*3/uL 3.6 - 10.7 10*3/uL [facility] CBC WITH AUTO DIFFERENTIALon 09-21-2023 Basophils (Bld) [#/Vol] 0.1 10*3/uL Normal 0.0-0.2 [facility] Comment on above: Performed By: #### L [id number] ####Natural Gas Inspector: HANS PAULSON ([id number])[facility] ([facility])[address] [place] [address] Basophils/100 WBC (Bld) 0.5 % Normal 0.0-2.0 [facility] Comment on above: Performed By: #### L [id number] ####Natural Gas Inspector: HANS PAULSON ([id number])[facility] ([facility])[address] Eosinophils (Bld) [#/Vol] 0.8 10*3/uL High 0.0-0.5 [facility] Comment on above: Performed By: #### L [id number] ####Natural Gas Inspector: HANS PAULSON ([id number])[facility] ([facility])[address] Eosinophils/100 WBC (Bld) 8.2 % High 0.0-6.0 [facility] Comment on above: Performed By: #### L [id number] ####Natural Gas Inspector: HANS PAULSON ([id number])[facility] [place] [address] Erythrocyte distribution width (RBC) [Ratio] 13.2 % Normal 11.5-15.0 [facility] Comment on above: Performed By: #### L [id number] ####Natural Gas Inspector: HANS ALCANTARESCOBAR ([id number])[facility] ([facility])[address] [place] [address] Hematocrit (Bld) [Volume fraction] 33.9 % Low 35.0-47.0 [facility] Comment on above: Performed By: #### L [id number] ####Natural Gas Inspector: HANS ALCANTARESCOBAR ([id number])[facility] ([facility])[address] [place] [address] Hemoglobin (Bld) [Mass/Vol] 10.6 g/dL Low 11.7-16.0 [facility] Comment on above: Performed By: #### L [id number] ####Natural Gas Inspector: HANS PAULSON ([id number])[facility] ([facility])[address] [place] [address] IMMATURE GRANS % 0.2 % Normal 0.0-2.0 [facility] Comment on above: Performed By: #### L [id number] ####Natural Gas Inspector: HANS PAULSON ([id number])[facility] ([facility])[address] [place] [address] IMMATURE GRANS ABSOLUTE 0.0 10*3/uL Normal <0.1 [facility] Comment on above: Performed By: #### L [id number] ####Natural Gas Inspector: HANS PAULSON ([id number])[facility] ([facility])[address] [place] [address] Lymphocytes (Bld) [#/Vol] 0.8 10*3/uL Low 1.0-4.3 [facility] Comment on above: Performed By: #### L [id number] ####Natural Gas Inspector: HANS ALCANTARESCOBAR ([id number])[facility] (SBHLAB)[address] Lymphocytes/100 WBC (Bld) 8.7 % Low 15.0-45.0 [facility] Comment on above: Performed By: #### L [id number] ####Natural Gas Inspector: HANS ALCANTARESCOBAR ([id number])[facility] CAN[facility]ER CENTERNorma [facility] (SBHLAB)[address] MCH (RBC) [Entitic mass] 30.2 pg Normal 26.0-34.0 [facility] Comment on above: Performed By: #### L [id number] ####Natural Gas Inspector: HANS WALDROPKimESCOBAR ([id number])[facility] CAN[facility] CENTERNorma VILAMarisa (SBHLAB)[address] MCHC 31.3 % Normal 30.5-36.0 [facility] Comment on above: Performed By: #### L [id number] ####Natural Gas Inspector: HANS PAULSON ([id number])[facility]ENTERNorma [facility]CHL[facility] CENTERMarisa (SBHLAB)[address] MCV (RBC) [Entitic vol] 96.6 fL Normal 77.0-99.0 [facility] Comment on above: Performed By: #### L [id number] ####Natural Gas Inspector: HANS PAULSON ([id number])[facility]ENTERNorma BRANCHL[facility] CENTERMarisa (SBHLAB)[address] Monocytes (Bld) [#/Vol] 0.7 10*3/uL Normal 0.0-0.9 [facility] Comment on above: Performed By: #### L [id number] ####Natural Gas Inspector: HANS PAULSON ([id number])[facility]ENTERNorma [facility] (SB[facility]AB)[address] Monocytes/100 WBC (Bld) 7.1 % Normal 5.0-13.0 [facility] Comment on above: Performed By: #### L [id number] ####Natural Gas Inspector: HANS WALDROPKimESCOBAR ([id number])[facility]ENTERA [place] (SBHLAB)[address] NEUTROPHILS ABSOLUTE 7.0 10*3/uL Normal 1.8-7.5 [facility] Comment on above: Performed By: #### L [id number] ####Natural Gas Inspector: HANS ALCANTARESCOBAR ([id number])[facility]A [place] (SBHLAB)[address] Neutrophils/100 WBC (Bld) 75.3 % Normal 38.0-82.0 [facility] Comment on above: Performed By: #### L [id number] ####Natural Gas Inspector: HANS WALDROPIVELISSE ([id number])[facility] [place] (SBHLAB)[address] NRBC 0.0 /100 WBCs Normal 0.0-2.0 [facility] Comment on above: Performed By: #### L [id number] ####Natural Gas Inspector: HANS ALCANTARESCOBAR ([id number])[facility] [place] (SBHLAB)[address] Platelet mean volume (Bld) [Entitic vol] 9.5 fL Normal 9.0-12.7 [facility] Comment on above: Performed By: #### L [id number] ####Natural Gas Inspector: HANS PAULSON ([id number])[facility] [place] (SBHLAB)[address] Platelets (Bld) [#/Vol] 217 10*3/uL Normal 140-440 [facility] Comment on above: Performed By: #### L [id number] ####Natural Gas Inspector: HANS ALCANTARESCOBAR ([id number])[facility] [place] (SBHLAB)[address] RBC (Bld) [#/Vol] 3.51 10*6/uL Low 3.80-5.20 [facility] Comment on above: Performed By: #### L [id number] ####Natural Gas Inspector: HANS PAULSON ([id number])[facility] ([facility])[address] [place] [address] WBC (Bld) [#/Vol] 9.4 10*3/uL Normal 3.6-10.7 [facility] Comment on above: Performed By: #### L [id number] ####Natural Gas Inspector: HANS PAULSON ([id number])[facility] ([facility])[address] [place] [address] CNPNon 09-21-2023 CNPN Telephone (FAMDNA) GONZALO DELUCA ([id number]) 1955 F Date Time Provider Department 09/21/23 HERMINIA CASE FAMDNA During your visit today, we recorded the following information about you: Ana Maria Acosta, RN 09/21/2023 2:55 PM Signed Ashley from [facility] Patient currently admitted for falls Need orders to follow for Home Care Call back number: [phone] Melva Juárez PA-C 09/21/2023 4:01 PM Signed Orders or will Dr. Case follow? She will follow. We don't typically give home care orders. RODRÍGUEZ Kruse Kristina, CHARLEY 09/21/2023 4:54 PM Signed Called and spoke with Vivian from [facility] They just need to confirm Dr. Case will follow for For homecare They Don't need orders. Verbal given now. Allergies As of Date: 09/21/2023 Noted Allergy Reaction SEASONAL ALLERGIES 08/16/2017 5 - Intolerance Date Reviewed: 09/08/2023 Reviewed by: Tate Weathers MA - Fully Assessed Reason for Visit: Patient Update [1234] Prescriptions as of 09/21/2023 - mirtazapine (REMERON) 15 mg tablet Take 1 tablet by mouth daily at bedtime. - busPIRone (BUSPAR) 15 mg tablet Take 1 tablet by mouth three times a day. - oxyCODONE-acetaminophe n (PERCOCET) 5-325 mg tablet Take 1 tablet by mouth every 6 hours as needed for pain for up to 30 days. - QUEtiapine (SEROQUEL) 100 mg tablet take 2 tablets by mouth at bedtime as needed - predniSONE (DELTASONE) 10 mg tablet Take 4 tablets daily by mouth for 3 days, then take 3 tablets daily for 3 days, then take 2 tablets daily for 3 days, then 1 tablet daily for 3 days then one-half tablet daily for 2 days - cyclobenzaprine (FLEXERIL) 5 mg tablet take 1 tablet by mouth twice a day as needed - buPROPion XL (WELLBUTRIN XL) 150 mg 24 hr tablet take 1 tablet by mouth every day - fluticasone-salmeterol (ADVAIR DISKUS) 250-50 mcg/dose inhaler Inhale 1 Puff as instructed two times a day. RINSE AND GARGLE MOUTH WITH WATER AFTER EACH USE. - PARoxetine (PAXIL) 40 mg tablet Take 1 tablet by mouth once daily. Take 1/2 tablet at bedtime for 2 weeks, then increase to full tablet QHS. - diclofenac (VOLTAREN ARTHRITIS PAIN) 1 % topical gel Apply 2 g to affected area four times daily. - montelukast (SINGULAIR) 10 mg tablet Take 10 mg by mouth daily at bedtime. - diclofenac (VOLTAREN) 1 % topical gel Apply 4 g to affected area. - alendronate (FOSAMAX) 70 mg tablet TAKE 1 TABLET BY MOUTH ONE TIME A WEEK. - tiotropium bromide (SPIRIVA RESPIMAT) 2.5 mcg/actuation inhaler INHALE 2 PUFFS BY MOUTH ONCE DAILY DIRECTED - atorvastatin (LIPITOR) 40 mg tablet TAKE 1 TABLET BY MOUTH EVERY DAY AT NIGHT - fluticasone (FLONASE) 50 mcg/actuation nasal spray Use 2 Sprays in each nostril once daily. - Nebulizers Use as directed. - albuterol (PROVENTIL) 2.5 mg /3 mL (0.083 %) nebulizer solution INHALE 3 ML VIA NEBULIZER EVERY 4 HOURS NEEDED FOR WHEEZE OR FOR SHORTNESS OF BREATH - albuterol HFA (PROVENTIL HFA, VENTOLIN HFA) 90 mcg/actuation inhaler Inhale 2 Puffs as instructed every 4 hours as needed for wheezing/shortness of breath. Problem List As Of Date 09/21/2023 Noted Resolved DDD (degenerative disc disease), lumbar [M51.36] Panlobular emphysema (HCC) [J43.1] Major depression, recurrent, chronic (HCC) [F33* Osteoporosis [M81.0] Pulmonary nodule, right [R91.1] Compression fracture of body of thoracic verteb*07/11/2018 Obesity, Class I, BMI 30-34.9 [E66.9] 12/07/2018 03/11/2023 Chronic midline low back pain without sciatica *03/23/2019 History of cervical cancer [Z85.41] 11/02/2019 COPD (chronic obstructive pulmonary disease) wi*02/02/2021 03/09/2023 Chronic respiratory failure with hypoxia (HCC) *08/06/2021 Moderate malnutrition (HCC) [E44.0] 01/22/2023 03/11/2023 Compression fracture of L4 lumbar vertebra, wit*03/11/2023 Moderate episode of recurrent major depressive *03/11/2023 PAUL (generalized anxiety disorder) [F41.1] 03/11/2023 Chronic pain syndrome [G89.4] 03/11/2023 03/11/2023 Former smoker [Z87.891] 04/10/2017 H/O: CVA (cerebrovascular accident) [Z86.73] 11/22/2019 Leukocytosis [D72.829] 04/10/2017 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/07/2019 05/20/2023 Neoplasm of uncertain behavior of skin [D48.5] 04/23/2016 Nondisplaced fracture of neck of left femur (HC*11/06/2022 Other specified complication of vascular prosth*08/06/2021 PNA (pneumonia) [J18.9] 08/02/2019 Right arm weakness [R29.898] 11/21/2019 Poor venous access [I87.8] 12/19/2019 S/P hysterectomy [Z90.710] 11/06/2019 Sciatica [M54.30] 04/10/2017 Shortness of breath [R06.02] 04/13/2018 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] 04/10/2017 Encounter Status:Closed by ANA MARIA ACOSTA on 09/21/23 Normal [facility] Cobalamin (Vitamin B12) [Mas s/Vol]on 09-21-2023 Interpretation and review of laboratory results Normal [facility] Consulton 09-21-2023 Consult Normal [facility] ECG 12-LEADon 09-21-2023 ECG 12-LEAD IMPRESSION: Sinus rhythm Nonspecific T abnormalities, lateral leads Compared to ECG 09/19/2023 17:01:12 T-wave abnormality now present Prolonged QT interval no longer present Electronically Signed On 09-21-2023 09:19:23 EDT by Raul Cao Normal [facility] IDNon 09-21-2023 IDN The patient is Moderately Unstable - Medium risk of patient condition declining or worsening The patient's goals for the shift include safety and comfort The clinical goals for the shift include safety Normal [facility] Laboratory - Chemistry and C hemistry - challengeon 09-21-2023 Cobalamin (Vitamin B12) [Mass/Vol] 735 pg/mL 239 - 931 pg/mL [facility] TSH Qn 1.017 m[IU]/L [facility] 25-hydroxyvitamin D3 [Mass/Vol] 30 ng/mL 30 - 100 ng/mL [facility] Magnesium [Mass/Vol] 1.5 mg/dL Low 1.6 - 2 .3 mg/dL [facility] MAGNESIUMon 09-21-2023 Magnesium [Mass/Vol] 1.5 mg/dL Low 1.6-2.3 [facility] Comment on above: Performed By: #### L [id number], [id number], LAB15, LAB67 ####Natural Gas Inspector: HANS PAULSON ([id number])[facility] (SBHLAB)[address] [place] [address] No Panel InformationOrdered By: Raul Cao on 09-21-2023 P [place] 46 degrees [facility] Work Phone: MI Interval 142 ms [employer] Work Phone: QRS [place] -35 degrees [employer] Work Phone: QRSD Interval 102 ms [employer] Work Phone: QT Interval 382 ms [employer] Work Phone: QTC Interval 446 ms [employer] Work Phone: T Wave [place] 147 degrees [employer] Work Phone: [employer] Work Phone: No Panel Informationon 09-20 Sinus rhythm Nonspecific T abnormalities, lateral leads Compared to ECG 09/19/2023 17:01:12 T-wave abnormality now present Prolonged QT interval no longer present Electronically Signed On 09-21-2023 09:19:23 EDT by Raul Cao Raul Forman MD - 09/21/2023 IMPRESSION: Sinus rhythm Nonspecific T abnormalities, lateral leads Compared to ECG 09/19/2023 17:01:12 T-wave abnormality now present Prolonged QT interval no longer present Electronically Signed On 09-21-2023 09:19:23 EDT by Raul Cao [facility] Interpretation and review of laboratory results Abnormal [facility] Progress Noteon 09-21-2023 Progress Note Normal [facility] Normal [facility] Progress Note Normal [facility] Progress Note Normal [facility] Progress Note Normal [facility] THYROID STIMULATING HORMONEo n 09-21-2023 THYROID STIMULATING HORMONE 1.017 uIU/mL Normal 0.465-4.680 [facility] Comment on above: Performed By: #### L AB129, [id number], LAB15, LAB67 ####Natural Gas Inspector: HANS PAULSON ([id number])[facility] [place] (SBHLAB)[address] [place] [address] TSH Qnon 09-21-2023 Interpretation and review of laboratory results Normal [facility] VITAMIN B12on 09-21-2023 Cobalamin (Vitamin B12) [Mass/Vol] 735 pg/mL Normal 239-931 [facility] Comment on above: Performed By: #### L AB129, YBQ002, LAB15, LAB67 ####Natural Gas Inspector: HANS PAULSON ([id number])[facility] (SB[facility])[address] VITAMIN D DEFICIENCY SCREENI NG (VIT D 25)on 09-21-2023 VIT D 25-OH, TOTAL 30 ng/mL Normal 30-100 [facility] Comment on above: Result Comment: KYM Gilmore COMMENTS:Therapy is based on measurement of Total 25-OHD with the following classification levels:Less than 20 ng/mL: Indicative of Vit D [id number] ng/mL: Suggests Vit D insufficiencyOptimal: Greater than or equal to 30 ng/mLTest performed by miacosa Competitive Immunoassay, measuring Total Vitamin D, not individual fractions. Performed By: #### L [id number] ####Natural Gas Inspector: HANS PAULSON ([id number])[facility] (SB[facility]AB)[address] Vital signsOrdered By: Bernadette Cao on 09-21-2023 Heart rate 82 /min bpm [facility] Work Phone: BASIC METABOLIC PANELon Anion gap [Moles/Vol] 5 mmol/L Normal 3-13 [facility] Comment on above: Performed By: #### L AB15, [id number], [id number] ####Natural Gas Inspector: HANS PAULSON ([id number])[facility] ([facility])[address] Calcium [Mass/Vol] 8.5 mg/dL Normal 8.4-10.4 [facility] Comment on above: Performed By: #### L AB15, [id number], [id number] ####Natural Gas Inspector: HANS PAULSON ([id number])[facility] ([facility])[address] Chloride [Moles/Vol] 99 mmol/L Normal 98-107 [facility] Comment on above: Performed By: #### L AB15, UOL092, MPQ671 ####Natural Gas Inspector: HANS PAULSON ([id number])[facility] ([facility])[address] CO2 [Moles/Vol] 33 mmol/L High 22-30 [facility] Comment on above: Performed By: #### L AB15, [id number], GIP380 ####Natural Gas Inspector: HANS PAULSON ([id number])[facility] ([facility])[address] Creatinine [Mass/Vol] 0.73 mg/dL Normal 0.52-1.04 [facility] Comment on above: Performed By: #### Arsenio AB15, [id number], MZL764 ####Natural Gas Inspector: HANS PAULSON ([id number])[facility] ([facility])[address] GLOMERULAR FILTRATION RATE ML/MIN/1.73 SQ M.PREDICTED >90.0 Normal >60.0 [facility] Comment on above: Result Comment: Calc ulation based on the Chronic Kidney Disease Epidemiology Collaboration (CKD-EPI) equation refit without adjustment for race Performed By: #### L AB15, [id number], YLO082 ####Natural Gas Inspector: HANS PAULSON ([id number])[facility] ([facility])[address] Glucose [Mass/Vol] 94 mg/dL Normal 70-100 [facility] Comment on above: Performed By: #### L AB15, RYS724, SWG888 ####Natural Gas Inspector: HANS PAULSON ([id number])[facility] (HLAB)[address] Potassium [Moles/Vol] 3.1 mmol/L Low 3.5-5.1 [facility] Comment on above: Performed By: #### L AB15, MJD874, DPE427 ####Natural Gas Inspector: HANS PAULSON ([id number])[facility]ERNorma [facility] (SBHLAB)[address] Sodium [Moles/Vol] 137 mmol/L Normal 135-145 [facility] Comment on above: Performed By: #### L AB15, [id number], UHI022 ####Natural Gas Inspector: HANS PAULSON ([id number])[facility]ERNorm[facility] (SBHLAB)[address] Urea nitrogen [Mass/Vol] 28 mg/dL High 7-17 [facility] Comment on above: Performed By: #### L AB15, EZK018, SET340 ####Natural Gas Inspector: HANS PAULSON ([id number])[facility] (SBHLAB)[address] Basic metabolic 1998 panelon 09-20-2023 Anion gap [Moles/Vol] 5 mmol/L 3 - 13 mmol/L [facility] Calcium [Mass/Vol] 8.5 mg/dL 8.4 - 10. 4 mg/dL [facility] Chloride [Moles/Vol] 99 mmol/L 98 - 10 7 mmol/L [facility] CO2 [Moles/Vol] 33 mmol/L High 22 - 30 mmol/L [facility] Creatinine [Mass/Vol] 0.73 mg/dL 0.52 - 1.04 mg/dL [facility] GFR/1.73 sq M.predicted MDRD (S/P/Bld) [Vol rate/Area] - PINF [facility] Comment on above: Calculation based on the Chronic Kidney Disease Epidemiology Collaboration (CKD-EPI) equation refit without adjustment for race Glucose [Mass/Vol] 94 mg/dL 70 - 100 mg/dL [facility] Interpretation and review of laboratory results Abnormal [facility] Potassium [Moles/Vol] 3.1 mmol/L Low 3.5 - 5.1 mmol/L [facility] Sodium [Moles/Vol] 137 mmol/L 135 - 145 mmol/L [facility] Urea nitrogen [Mass/Vol] 28 mg/dL High 7 - 17 mg/d L [facility] CARECOORDon 09-20-2023 CARECOORD Normal [facility] CBC W Auto Differential pane l (Bld)on 09-20-2023 Basophils (Bld) [#/Vol] 0.1 10*3/uL 0.0 - 0.2 10*3/uL [facility] Basophils/100 WBC (Bld) 0.5 % 0.0 - 2.0 % [facility] Eosinophils (Bld) [#/Vol] 0.8 10*3/uL High 0.0 - 0.5 10*3/uL [facility] Eosinophils/100 WBC (Bld) 7.0 % High 0.0 - 6.0 % [facility] Erythrocyte distribution width (RBC) [Ratio] 12.9 % 11.5 - 15.0 % [facility] Hematocrit (Bld) [Volume fraction] 34.8 % Low 35.0 - 47.0 % [facility] Hemoglobin (Bld) [Mass/Vol] 11.0 g/dL Low 11.7 - 16.0 g/dL [facility] Immature granulocytes (Bld) [#/Vol] 0.0 10*3/uL NINF - 0.1 10*3/uL [facility] Immature granulocytes/100 WBC (Bld) 0.4 % 0.0 - 2.0 % [facility] Interpretation and review of laboratory results Abnormal [facility] Lymphocytes (Bld) [#/Vol] 1.3 10*3/uL 1.0 - 4.3 10*3/uL [facility] Lymphocytes/100 WBC (Bld) 11.5 % Low 15.0 - 45.0 % [facility] MCH (RBC) [Entitic mass] 30.2 pg 26. 0 - 34.[address] [facility] MCHC (RBC) [Mass/Vol] 31.6 % 30.5 - 36.0 % [facility] MCV (RBC) [Entitic vol] 95.6 fL 77.0 - 99.0 fL [facility] Monocytes (Bld) [#/Vol] 0.7 10*3/uL 0.0 - 0.9 10*3/uL [facility] Monocytes/100 WBC (Bld) 6.0 % 5.0 - 13.0 % [facility] Neutrophils (Bld) [#/Vol] 8.2 10*3/uL High 1.8 - 7.5 10*3/uL [facility] Neutrophils/100 WBC (Bld) 74.6 % 38.0 - 82.0 % [facility] [facility] Nucleated RBC/100 WBC (Bld) [Ratio] 0.0 % [facility] Platelet mean volume (Bld) [Entitic vol] 9.4 fL 9.0 - 12.7 fL [facility] Platelets (Bld) [#/Vol] 243 10*3/uL 140 - 440 10*3/uL [facility] RBC (Bld) [#/Vol] 3.64 10*6/uL Low 3.80 - 5.2 0 10*6/uL [facility] WBC (Bld) [#/Vol] 10.9 10*3/uL High 3.6 - 10.7 10*3/uL [facility] CBC WITH AUTO DIFFERENTIALon 09-20-2023 Basophils (Bld) [#/Vol] 0.1 10*3/uL Normal 0.0-0.2 [facility] Comment on above: Performed By: #### L [id number] ####Natural Gas Inspector: HANS PAULSON ([id number])[facility] ([facility])[address] Basophils/100 WBC (Bld) 0.5 % Normal 0.0-2.0 [facility] Comment on above: Performed By: #### L [id number] ####Natural Gas Inspector: HANS PAULSON ([id number])[facility] (SBAB)[address] Eosinophils (Bld) [#/Vol] 0.8 10*3/uL High 0.0-0.5 [facility] Comment on above: Performed By: #### L [id number] ####Natural Gas Inspector: HANS PAULSON ([id number])[facility] [place] (SBHLAB)[address] [place] [address] [place] Eosinophils/100 WBC (Bld) 7.0 % High 0.0-6.0 [facility] Comment on above: Performed By: #### L [id number] ####Natural Gas Inspector: HANS PAULSON ([id number])[facility] (SBHLAB)[address] Erythrocyte distribution width (RBC) [Ratio] 12.9 % Normal 11.5-15.0 [facility] Comment on above: Performed By: #### L [id number] ####Natural Gas Inspector: HANS PAULSON ([id number])[facility] [place] (SBHLAB)[address] Hematocrit (Bld) [Volume fraction] 34.8 % Low 35.0-47.0 [facility] Comment on above: Performed By: #### L [id number] ####Natural Gas Inspector: HANS PAULSON ([id number])[facility] [place] [address] Hemoglobin (Bld) [Mass/Vol] 11.0 g/dL Low 11.7-16.0 [facility] Comment on above: Performed By: #### L [id number] ####Natural Gas Inspector: HANS PAULSON ([id number])[facility] [place] (SBHLAB)[address] IMMATURE GRANS % 0.4 % Normal 0.0-2.0 [facility] Comment on above: Performed By: #### L [id number] ####Natural Gas Inspector: HANS PAULSON ([id number])[facility] IMMATURE GRANS ABSOLUTE 0.0 10*3/uL Normal <0.1 [facility] Comment on above: Performed By: #### L [id number] ####Natural Gas Inspector: HANS PAULSON ([id number])[facility] [place] (SBHLAB)[address] Lymphocytes (Bld) [#/Vol] 1.3 10*3/uL Normal 1.0-4.3 [facility] Comment on above: Performed By: #### L [id number] ####Natural Gas Inspector: HANS PAULSON ([id number])[facility] (SBHLAB)[address] Lymphocytes/100 WBC (Bld) 11.5 % Low 15.0-45.0 [facility] Comment on above: Performed By: #### L [id number] ####Natural Gas Inspector: HANS PAULSON ([id number])[facility] [place] (SBHLAB)[address] MCH (RBC) [Entitic mass] 30.2 pg Normal 26.0-34.0 [facility] Comment on above: Performed By: #### L [id number] ####Natural Gas Inspector: HANS PAULSON ([id number])[facility] (SBHLAB)[address] MCHC 31.6 % Normal 30.5-36.0 [facility] Comment on above: Performed By: #### L [id number] ####Natural Gas Inspector: HANS PAULSON ([id number])[facility] (SBHLAB)[address] MCV (RBC) [Entitic vol] 95.6 fL Normal 77.0-99.0 [facility] Comment on above: Performed By: #### L [id number] ####Natural Gas Inspector: HANS PAULSON ([id number])[facility] [place] (SBHLAB)[address] [place] [address] Monocytes (Bld) [#/Vol] 0.7 10*3/uL Normal 0.0-0.9 [facility] Comment on above: Performed By: #### L [id number] ####Natural Gas Inspector: HANS PAULSON ([id number])[facility] [place] (SBHLAB)[address] Monocytes/100 WBC (Bld) 6.0 % Normal 5.0-13.0 [facility] Comment on above: Performed By: #### L [id number] ####Natural Gas Inspector: HANS PAULSON ([id number])[facility] [place] (SBHLAB)[address] NEUTROPHILS ABSOLUTE 8.2 10*3/uL High 1.8-7.5 [facility] Comment on above: Performed By: #### L [id number] ####Natural Gas Inspector: HANS PAULSON ([id number])[facility] [place] (SBHLAB)[address] Neutrophils/100 WBC (Bld) 74.6 % Normal 38.0-82.0 [facility] Comment on above: Performed By: #### L [id number] ####Natural Gas Inspector: HANS PAULSON ([id number])[facility] [place] (SBHLAB)[address] NRBC 0.0 /100 WBCs Normal 0.0-2.0 [facility] Comment on above: Performed By: #### L [id number] ####Natural Gas Inspector: HANS PAULSON ([id number])[facility] [place] (SBHLAB)[address] Platelet mean volume (Bld) [Entitic vol] 9.4 fL Normal 9.0-12.7 [facility] Comment on above: Performed By: #### L [id number] ####Natural Gas Inspector: HANS PAULSON ([id number])[facility] [place] (SBHLAB)[address] Platelets (Bld) [#/Vol] 243 10*3/uL Normal 140-440 [facility] Comment on above: Performed By: #### L [id number] ####Natural Gas Inspector: HANS PAULSON ([id number])[facility] [place] (SBHLAB)[address] [place] [address] [place] RBC (Bld) [#/Vol] 3.64 10*6/uL Low 3.80-5.20 [facility] Comment on above: Performed By: #### L [id number] ####Natural Gas Inspector: HANS PAULSON ([id number])[facility] [place] (SBHLAB)[address] WBC (Bld) [#/Vol] 10.9 10*3/uL High 3.6-10.7 [facility] Comment on above: Performed By: #### L [id number] ####Natural Gas Inspector: HANS PAULSON ([id number])[facility] [place] [address] Consulton 09-20-2023 Consult Normal [facility] Consult Normal [facility] Consult Normal [facility] IDNon 09-20-2023 IDN Normal [facility] Laboratory - Chemistry and C hemistry - challengeon 09-20-2023 Magnesium [Mass/Vol] 2.3 mg/dL 1.6 - 2 .3 mg/dL [facility] Troponin I.cardiac [Mass/Vol] 0.022 ng/mL NINF - 0.034 ng/mL [facility] Magnesium [Mass/Vol] 2.7 mg/dL High 1.6 - 2 .3 mg/dL [facility] MAGNESIUMon 09-20-2023 Magnesium [Mass/Vol] 2.3 mg/dL Normal 1.6-2.3 [facility] Comment on above: Performed By: #### L [id number], [id number], [id number] ####Natural Gas Inspector: HANS PAULSON ([id number])[facility] ([facility])[address] [place] [address] Magnesium [Mass/Vol]on 09-19 Interpretation and review of laboratory results Normal [facility] Interpretation and review of laboratory results Abnormal [facility] Progress Noteon 09-20-2023 Progress Note [facility] Progress Note Normal [facility] Note Normal [facility] Progress [facility] TROPONIN Ion 09-20-2023 Troponin I.cardiac [Mass/Vol] 0.022 ng/mL Normal <0.034 [facility] Comment on above: Result Comment: KYM Gilmore COMMENTS:Patients with high levels of Biotin oral intake (ie >5 mg/day) may have falsely decreased Troponin levels. Performed By: #### L [id number], [id number], [id number] ####Natural Gas Inspector: HANS PAULSON ([id number])[facility] [place] (SBHLAB)[address] [place] [address] Troponin I.cardiac [Mass/Vol ]on 09-20-2023 Interpretation and review of laboratory results Normal [facility] [employer] Patients with high levels of Biotin oral intake (ie >5 mg/day) may have falsely decreased Troponin levels. [facility] Heart TransthoracicOrdere d By: Srini Vital on 09-20-2023 Ao Root Index 2.56 cm/m2 [employer] Work Phone: [phone] Aortic Root 4.0 cm [facility] Phone: [phone] Aortic Sinus Valsalva 4.0 cm [facility] [employer] Phone: [phone] Aortic Sinus Valsalva Index 2.56 cm/m2 [employer] Phone: [phone] E/E' Lateral 4.67 [facility] Phone: [phone] E/E' Ratio (Averaged) 5.13 [facility] [employer] Phone: [phone] E/E' Septal 5.60 [facility] Phone: [phone] EF BP 65 % 55 - 100 % [employer] Phone: [phone] Fractional Shortening 2D 27 % 28 - 44 % [employer] Phone: [phone] Global Longitudinal Strain -18.1 % [facility] Phone: [phone] Interpretation and review of laboratory results Abnormal [employer] Phone: [phone] IVC Diameter 1.8 cm [employer] Phone: [phone] IVSd 1.0 cm Abnormal 0.6 - 0.9 cm [employer] Phone: [phone] LA Diameter 2.8 cm [employer] Phone: [phone] LA Size Index 1.79 cm/m2 [employer] Work Phone: [phone] LA Volume 2C 36 mL 22 - 52 mL [employer] Phone: [phone] LA Volume 4C 31 mL 22 - 52 mL [facility] Work Phone: LA Volume A/L [address] [facility] Work Phone: LA Volume BP 39 mL 22 - [address] [facility] Work [phone] LA Volume Index 2C 23 mL/m2 16 - 34 mL/m2 [facility] Work Phone: LA Volume Index 4C 20 mL/m2 16 - 34 mL/m2 [facility] Work Phone: LA Volume Index A/L 27 mL/m2 16 - 34 mL/m2 [facility] Work Phone: LA Volume Index BP 25 ml/m2 16 - 34 ml/m2 [facility] Work Phone: LA/AO Root Ratio 0.70 [facility] Work Phone: LV E' Lateral Velocity 12 cm/s [facility] Work Phone: LV E' Septal Velocity 10 cm/s [facility] Work Phone: LV EDV A2C [address] [facility] Work Phone: LV EDV A4C [address] [facility] Work Phone: LV EDV BP 60 mL 56 - [address] [facility] Work Phone: LV EDV Index A2C 36 mL/m2 [facility] Work Phone: LV EDV Index A4C 38 mL/m2 [facility] Work Phone: LV EDV Index BP 38 mL/m2 [facility] Work Phone: LV Ejection Fraction A2C 60 % [facility] Work Phone: LV Ejection Fraction A4C 70 % [facility] Work Phone: LV ESV A2C [address] [facility] Work Phone: LV ESV A4C [address] [facility] Work Phone: LV ESV BP 21 mL 19 - [address] [facility] Work Phone: LV ESV Index A2C 14 mL/m2 [facility] Work Phone: [phone] LV ESV Index A4C 12 mL/m2 [facility] Work Phone: [phone] LV ESV Index BP 13 mL/m2 [facility] Work Phone: LV Mass 2D 158.2 g 67 - [address] [facility] [employer] Work Phone: [phone] LV Mass 2D Index 101.4 g/m2 Abnormal 43 - 95 g/m2 [facility] [employer] Work Phone: LV RWT Ratio 0.50 [facility] [employer] Work Phone: [phone] LVIDd 4.4 cm 3.9 - 5.[address] [facility] [employer] Work Phone: [phone] LVIDd Index 2.82 cm/m2 [facility] [employer] Work Phone: [phone] [facility] [employer] Work Phone: [phone] LVIDs Index 2.05 cm/m2 [facility] [employer] Work Phone: [phone] LVOT Area 4.[address] [facility] [employer] Work Phone: [phone] LVOT Cardiac Output 6.5 liter/minute [facility] [employer] Work Phone: LVOT Diameter 2.[address] [facility] [employer] Work Phone: [phone] LVOT Mean Gradient [address] [facility] [employer] Work Phone: [phone] LVOT Peak Gradient [address] [facility] [employer] Work Phone: [phone] LVOT Peak Velocity 0.9 m/s [facility] [employer] Work Phone: LVOT Stroke Volume Index 50.3 mL/m2 [facility] [employer] Work Phone: LVOT SV 78.[address] [facility] [employer] Work [phone] LVOT VTI 18.[address] [facility] [employer] Work Phone: LVPWd 1.1 cm Abnormal 0.6 - 0.[address] [facility] Work Phone: [phone] MV A Velocity 0.55 m/s [facility] [employer] Work Phone: [phone] MV E Velocity 0.56 m/s [facility] Work Phone: [phone] MV E Wave Deceleration Time 192.[address] [facility] Work Phone: [phone] MV E/A 1.02 [facility] Work Phone: [phone] RA Area 4C 28.[address] [facility] Work Phone: [phone] RV Basal Dimension 2.[address] [facility] Work Phone: [phone] RV Free Wall Peak S' 15 cm/s [facility] Work Phone: [phone] RV Longitudinal Dimension 5.[address] [facility] Work Phone: [phone] RV Mid Dimension 2.[address] [facility] Work Phone: [phone] Sinotubular Junction 3.4 cm [facility] Work Phone: [phone] TAPSE 1.[address] [facility] Work Phone: [phone] TR Max Velocity 2.90 m/s [facility] Work Phone: [phone] TR Peak Gradient [address] [facility] Work Phone: [phone] [facility] Work Phone: US Heart Transthoracicon Left Ventricle: Left ventricle size is normal. Mildly increased wall thickness. Normal left ventricular systolic function. EF by 2D Simpsons Biplane is 65%. Global longitudinal strain is normal with a value of -18.1%. Normal wall motion. Right Ventricle: Right ventricle size is normal. Interatrial Septum: No interatrial shunt visualized on color Doppler. Agitated saline study was positive without provocation. Right to left shunt was noted. Hypermobile interatrial septum. No significant valvular abnormalities. Left Ventricle Left ventricle size is normal. Mildly increased wall thickness. Normal left ventricular systolic function. EF by 2D [employer]ons Biplane is 65%. Global longitudinal strain is normal with a value of -18.1%. Normal wall motion. Right Ventricle Right ventricle size is normal. TAPSE is normal. Left Atrium Left atrium size is normal (LA volume index 16-34 mL/m2). Right Atrium Right atrium size is normal. IVC/SVC IVC diameter is normal and decreases greater than 50% during inspiration; therefore the estimated right atrial pressure is normal (~3 mmHg). Mitral Valve Valve structure is normal. No regurgitation. No stenosis noted. Tricuspid Valve Valve structure is normal. Trace regurgitation. Aortic Valve Trileaflet. No cusp thickening. No cusp calcification. No regurgitation. No stenosis. Pulmonic Valve The pulmonic valve was not well visualized. Valve structure is normal. No regurgitation. Ascending Aorta Not well visualized. Normal sized sinuses of Valsalva and ascending aorta. Pericardium Evidence of prominent epicardial fat. No pericardial effusion. Septum No interatrial shunt visualized on color Doppler. Agitated saline study was positive without provocation. Right to left shunt was noted. Hypermobile interatrial septum. Pulmonary Artery Pulmonary artery was not well visualized. Study Details Image quality: adequate. Additional technique includes myocardial strain. Heart rate: 79 bpm. Blood pressure: 109/66 mmHg. Saline contrast was given to evaluate for intracardiac shunt. Comparison Study There is a prior study available for comparison. Prior study date: 11/23/2019. EF 65%. Echo Additional Conclusions No significant valvular abnormalities. CV CPACS BLOOD GAS, VENOUSon 09-19-19 Base excess Calc (BldV) [Moles/Vol] 4.1 mmol/L High -3.0-3.0 [facility] Comment on above: Performed By: #### L [id number] ####Natural Gas Inspector: HANS PAULSON ([id number])[facility])[address] [place] [address] CO2 [Moles/Vol] 31.4 mmol/L High 23.0-30.0 [facility] Comment on above: Performed By: #### L [id number] ####Natural Gas Inspector: HANS PAULSON ([id number])[facility] (SBHLAB)[address] [place] [address] HCO3 (Bld) [Moles/Vol] 29.9 mmol/L Normal 21.0-30.0 [facility] Comment on above: Performed By: #### L [id number] ####Natural Gas Inspector: HANS PAULSON ([id number])[facility] Hemoglobin (Bld) [Mass/Vol] 13.4 g/dL Normal Screen only [facility] Comment on above: Performed By: #### L [id number] ####Natural Gas Inspector: HANS PAULSON ([id number])[facility] (SBHLAB)[address] OXYGEN (MM HG) IN VENOUS BLOOD 50.1 mm Hg Normal [facility] Comment on above: Performed By: #### L [id number] ####Natural Gas Inspector: HANS PAULSON ([id number])[facility] (SBHLAB)[address] OXYGEN SATURATION (%) IN VENOUS BLOOD 85.8 % Normal [facility] Comment on above: Performed By: #### L [id number] ####Natural Gas Inspector: HANS PAULSON ([id number])[facility] (SBHLAB)[address] PCO2, VICKY 49.6 mm Hg Normal 35.0-53.0 [facility] Comment on above: Performed By: #### L [id number] ####Natural Gas Inspector: HANS PAULSON ([id number])[facility] (SBHLAB)[address] PH VENOUS 7.398 Normal 7.320-7.420 [facility] Comment on above: Performed By: #### L [id number] ####Natural Gas Inspector: HANS PAULSON ([id number])[facility] (SBHLAB)[address] SOURCE OF OXYGEN Nasal cannula Normal [facility] Comment on above: Result Comment: KYM Gilmore COMMENTS:Assessment of oxygenation is best done with an arterial blood gas determination. Reference ranges for pO2, bicarbonate, and base excess are for mixed venous blood. Specimens drawn from a peripheral vein will often have higher values. Performed By: #### L [id number] ####Natural Gas Inspector: HANS PAULSON ([id number])[facility] (SBHLAB)[address] CBC W Auto Differential pane l (Bld)on 09-19-2023 Basophils (Bld) [#/Vol] 0.0 10*3/uL 0.0 - 0.2 10*3/uL [facility] Basophils/100 WBC (Bld) 0.2 % 0.0 - 2.0 % [facility] Eosinophils (Bld) [#/Vol] 0.3 10*3/uL 0.0 - 0.5 10*3/uL [facility] Eosinophils/100 WBC (Bld) 1.5 % 0.0 - 6.0 % [facility] Erythrocyte distribution width (RBC) [Ratio] 13.0 % 11.5 - 15.0 % [facility] Hematocrit (Bld) [Volume fraction] 39.6 % 35.0 - 47.0 % [facility] Hemoglobin (Bld) [Mass/Vol] 12.7 g/dL 11.7 - 16.0 g/dL [facility] Immature granulocytes (Bld) [#/Vol] 0.1 10*3/uL High NINF - 0.1 10*3/uL [facility] Immature granulocytes/100 WBC (Bld) 0.6 % 0.0 - 2.0 % [facility] Interpretation and review of laboratory results Abnormal [facility] Lymphocytes (Bld) [#/Vol] 1.3 10*3/uL 1.0 - 4.3 10*3/uL [facility] Lymphocytes/100 WBC (Bld) 6.5 % Low 15.0 - 45.0 % [facility] MCH (RBC) [Entitic mass] 30.4 pg 26. 0 - 34.0 pg [facility] MCHC (RBC) [Mass/Vol] 32.1 % 30.5 - 36.0 % [facility] MCV (RBC) [Entitic vol] 94.7 fL 77.0 - 99.0 fL [facility] Monocytes (Bld) [#/Vol] 1.0 10*3/uL High 0.0 - 0.9 10*3/uL [facility] Monocytes/100 WBC (Bld) 5.1 % 5.0 - 13.0 % [facility] Neutrophils (Bld) [#/Vol] 16.8 10*3/uL High 1.8 - 7.5 10*3/uL [facility] Neutrophils/100 WBC (Bld) 86.1 % High 38.0 - 82.0 % [facility] Nucleated RBC/100 WBC (Bld) [Ratio] 0.0 % [facility] Platelet mean volume (Bld) [Entitic vol] 9.3 fL 9.0 - 12.7 fL [facility] Platelets (Bld) [#/Vol] 339 10*3/uL 140 - 440 10*3/uL [facility] RBC (Bld) [#/Vol] 4.18 10*6/uL 3.80 - 5.2 0 10*6/uL [facility] WBC (Bld) [#/Vol] 19.5 10*3/uL High 3.6 - 10.7 10*3/uL [facility] CBC WITH AUTO DIFFERENTIALon 09-19-2023 Basophils (Bld) [#/Vol] 0.0 10*3/uL Normal 0.0-0.2 [facility] Comment on above: Performed By: #### L [id number] ####Natural Gas Inspector: HANS PAULSON ([id number])[facility] [place] (SBHLAB)[address] Basophils/100 WBC (Bld) 0.2 % Normal 0.0-2.0 [facility] Comment on above: Performed By: #### L [id number] ####Natural Gas Inspector: HANS PAULSON ([id number])[facility]ERNorma [facility] (SBHLAB)[address] Eosinophils (Bld) [#/Vol] 0.3 10*3/uL Normal 0.0-0.5 [facility] Comment on above: Performed By: #### L [id number] ####Natural Gas Inspector: HANS PAULSON ([id number])[facility] [place] (SBHLAB)[address] [place] [address] [place] Eosinophils/100 WBC (Bld) 1.5 % Normal 0.0-6.0 [facility] Comment on above: Performed By: #### L [id number] ####Natural Gas Inspector: HANS PAULSON ([id number])[facility] [place] (SBHLAB)[address] Erythrocyte distribution width (RBC) [Ratio] 13.0 % Normal 11.5-15.0 [facility] Comment on above: Performed By: #### L [id number] ####Natural Gas Inspector: HANS PAULSON ([id number])[facility] (SBHLAB)[address] Hematocrit (Bld) [Volume fraction] 39.6 % Normal 35.0-47.0 [facility] Comment on above: Performed By: #### L [id number] ####Natural Gas Inspector: HANS PAULSON ([id number])[facility] ([facility])[address] Hemoglobin (Bld) [Mass/Vol] 12.7 g/dL Normal 11.7-16.0 [facility] Comment on above: Performed By: #### L [id number] ####Natural Gas Inspector: HANS PAULSON ([id number])[facility] (SBHL[facility])[address] IMMATURE GRANS % 0.6 % Normal 0.0-2.0 [facility] Comment on above: Performed By: #### L [id number] ####Natural Gas Inspector: HANS PAULSON ([id number])[facility] ([facility])[address] IMMATURE GRANS ABSOLUTE 0.1 10*3/uL High <0.1 [facility] Comment on above: Performed By: #### L [id number] ####Natural Gas Inspector: HANS PAULSON ([id number])[facility] [place] (SBHLAB)[address] [place] [address] [place] Lymphocytes (Bld) [#/Vol] 1.3 10*3/uL Normal 1.0-4.3 [facility] Comment on above: Performed By: #### L [id number] ####Natural Gas Inspector: HANS PAULSON ([id number])[facility] ([facility])[address] [place] [address] [place] Lymphocytes/100 WBC (Bld) 6.5 % Low 15.0-45.0 [facility] Comment on above: Performed By: #### L [id number] ####Natural Gas Inspector: HANS PAULSON ([id number])[place] ([facility])[address] MCH (RBC) [Entitic mass] 30.4 pg Normal 26.0-34.0 [facility] Comment on above: Performed By: #### L [id number] ####Natural Gas Inspector: HANS PAULSON ([id number])[facility]ERNorm[facility] (SBHL[facility])[address] MCHC 32.1 % Normal 30.5-36.0 [facility] Comment on above: Performed By: #### L [id number] ####Natural Gas Inspector: HANS PAULSON ([id number])[facility]ERNorma [facility] (SBHLAB)[address] MCV (RBC) [Entitic vol] 94.7 fL Normal 77.0-99.0 [facility] Comment on above: Performed By: #### L [id number] ####Natural Gas Inspector: HANS PAULSON ([id number])[facility]ERNorma [facility] (SBHLAB)[address] [place] [address] Monocytes (Bld) [#/Vol] 1.0 10*3/uL High 0.0-0.9 [facility] Comment on above: Performed By: #### L [id number] ####Natural Gas Inspector: HANS PAULSON ([id number])[facility]A [place] (SBHLAB)[address] [place] [id number] [place] Monocytes/100 WBC (Bld) 5.1 % Normal 5.0-13.0 [facility] Comment on above: Performed By: #### L [id number] ####Natural Gas Inspector: HANS PAULSON ([id number])[facility] (SBHLAB)[address] NEUTROPHILS ABSOLUTE 16.8 10*3/uL High 1.8-7.5 [facility] Comment on above: Performed By: #### L [id number] ####Natural Gas Inspector: HANS PAULSON ([id number])[facility] [place] (SBHLAB)[address] Neutrophils/100 WBC (Bld) 86.1 % High 38.0-82.0 [facility] Comment on above: Performed By: #### L [id number] ####Natural Gas Inspector: HANS PAULSON ([id number])[facility] [place] (SBHLAB)[address] NRBC 0.0 /100 WBCs Normal 0.0-2.0 [facility] Comment on above: Performed By: #### L [id number] ####Natural Gas Inspector: HANS PAULSON ([id number])[facility] [place] (SBHLAB)[address] Platelet mean volume (Bld) [Entitic vol] 9.3 fL Normal 9.0-12.7 [facility] Comment on above: Performed By: #### L [id number] ####Natural Gas Inspector: HANS PAULSON ([id number])[facility] [place] (SBHLAB)[address] Platelets (Bld) [#/Vol] 339 10*3/uL Normal 140-440 [facility] Comment on above: Performed By: #### L [id number] ####Natural Gas Inspector: HANS PAULSON ([id number])[facility] [place] (SBHLAB)[address] [place] [id number] [place] RBC (Bld) [#/Vol] 4.18 10*6/uL Normal 3.80-5.20 [facility] Comment on above: Performed By: #### L [id number] ####Natural Gas Inspector: HANS PAULSON ([id number])[facility] [place] (SBHLAB)[address] WBC (Bld) [#/Vol] 19.5 10*3/uL High 3.6-10.7 [facility] Comment on above: Performed By: #### L [id number] ####Natural Gas Inspector: HANS PAULSON ([id number])[facility] (SBHLAB)[address] COMPLETE URINALYSISon 2023 BACTERIA (#/HPF) IN URINE Negative Normal Negative [facility] Comment on above: Performed By: #### L [id number] ####Natural Gas Inspector: HANS PAULSON ([id number])[facility] (SBHLAB)[address] BILIRUBIN, TOTAL PRESENCE IN URINE Negative Normal Negative [facility] Comment on above: Performed By: #### L [id number] ####Natural Gas Inspector: HANS PAULSON ([id number])[facility] (SBHLAB)[address] Clarity (U) Clear Normal Clear [facility] Comment on above: Performed By: #### L [id number] ####Natural Gas Inspector: HANS PAULSON ([id number])[facility] (SBHLAB)[address] Color (U) Yellow Normal Lt. Yellow [facility] Comment on above: Performed By: #### L [id number] ####Natural Gas Inspector: HANS PAULSON ([id number])[facility] (SBHLAB)[address] GLUCOSE (MG/DL) IN URINE Normal Normal Normal (<70 ) [facility] Comment on above: Performed By: #### L [id number] ####Natural Gas Inspector: HANS PAULSON ([id number])[facility] (SBHLAB)[address] HEMOGLOBIN PRESENCE IN URINE Negative Normal Negative [facility] Comment on above: Performed By: #### L [id number] ####Natural Gas Inspector: HANS PAULSON ([id number])[facility] [place] (SBHLAB)[address] HYALINE CASTS (#/LPF) IN URINE SEDIMENT BY MICROSCOPY 3-5 Abnormal Negative [facility] Comment on above: Performed By: #### L [id number] ####Natural Gas Inspector: HANS ALCANTARESCOBAR ([id number])[facility] [place] (SBHLAB)[address] Ketones Ql (U) Negative Normal Negative [facility] Comment on above: Performed By: #### L [id number] ####Natural Gas Inspector: HANS PAULSON ([id number])[facility] [place] (SBHLAB)[address] LEUKOCYTE ESTERASE PRESENCE IN URINE BY TEST STRIP Negative Normal Negative [facility] Comment on above: Performed By: #### L [id number] ####Natural Gas Inspector: HANS PAULSON ([id number])[facility] [place] (SBHLAB)[address] [place] [address] [place] MUCUS (#/LPF) IN URINE SEDIMENT Few Normal Negative [facility] Comment on above: Performed By: #### L [id number] ####Natural Gas Inspector: HANS ALCANTARESCOBAR ([id number])[facility] [place] (SBHLAB)[address] NITRITE PRESENCE IN URINE Negative Normal Negative [facility] Comment on above: Performed By: #### L [id number] ####Natural Gas Inspector: HANS ALCANTARESCOBAR ([id number])[facility] [place] (SBHLAB)[address] [place] [address] [place] NON-SQUAMOUS EPITHELIAL (#/HPF) IN URINE 0-2 Abnormal Negative [facility] Comment on above: Performed By: #### L [id number] ####Natural Gas Inspector: HANS PAULSON ([id number])[facility] [place] (SBHLAB)[address] pH (U) 5.5 [pH] Normal 5.0-8.0 [facility] Comment on above: Performed By: #### L [id number] ####Natural Gas Inspector: HANS PAULSON ([id number])[facility]ERNorma [place] (SBHLAB)[address] Protein (U) [Mass/Vol] 20 mg/dL Abnormal Negative [facility] Comment on above: Performed By: #### L [id number] ####Natural Gas Inspector: HANS PAULSON ([id number])[facility] (SBHLAB)[address] RBC (#/HPF) IN URINE SEDIMENT 0-2 Normal 0-2 [facility] Comment on above: Performed By: #### L [id number] ####Natural Gas Inspector: HANS PAULSON ([id number])[facility] CENTERNorma [place] (SBHLAB)[address] [place] [address] Specific gravity (U) [Rel density] 1.018 Normal 1.005-1.030 [facility] Comment on above: Performed By: #### L [id number] ####Natural Gas Inspector: HANS PAULSON ([id number])[facility]ENTERNorma [facility]ENTERMarisa (SBHLAB)[address] [place] [address] SQUAMOUS EPITHELIAL CELLS (#/HPF) IN URINE SEDIMENT 0-2 Normal 3-5 [facility] Comment on above: Performed By: #### L [id number] ####Natural Gas Inspector: HANS PAULSON ([id number])[facility]ERNorma [facility] (SBHLAB)[address] [place] [address] [place] UROBILINOGEN (MG/DL) IN URINE Normal Normal Normal (0-1) [facility] Comment on above: Performed By: #### L [id number] ####Natural Gas Inspector: HANS PAULSON ([id number])[facility]A [facility] (SBHLAB)[address] [place] [address] WBC (LEUKOCYTE) (#/HPF) IN URINE SEDIMENT 3-5 Normal 0-5 [facility] Comment on above: Performed By: #### L [id number] ####Natural Gas Inspector: HANS PAULSON ([id number])[facility]A [facility] (SBHLAB)[address] COMPREHENSIVE METABOLIC PANE Cory 09-19-2023 Albumin [Mass/Vol] 3.9 g/dL Normal 3.5-5.0 [facility] Comment on above: Performed By: #### L [id number], LAB17 ####Natural Gas Inspector: HANS PAULSON ([id number])[facility] (SBHLAB)[address] ALP [Catalytic activity/Vol] 115 U/L Normal 38-126 [facility] Comment on above: Performed By: #### L [id number], [id number] ####Natural Gas Inspector: HANS PAULSON ([id number])[facility] (SBHLAB)[address] ALT [Catalytic activity/Vol] 38 U/L High 0-34 [facility] Comment on above: Performed By: #### L [id number], LAB17 ####Natural Gas Inspector: HANS PAULSON ([id number])[facility] (SBHLAB)[address] Anion gap [Moles/Vol] 13 mmol/L Normal 3-13 [facility] Comment on above: Performed By: #### L [id number], LAB17 ####Natural Gas Inspector: HANS PAULSON ([id number])[facility] (SBHLAB)[address] AST [Catalytic activity/Vol] 35 U/L Normal 15-46 [facility] Comment on above: Performed By: #### L [id number], LAB17 ####Natural Gas Inspector: HANS PAULSON ([id number])[facility] (SBHLAB)[address] Bilirubin [Mass/Vol] 0.5 mg/dL Normal 0.2-1.3 [facility] Comment on above: Performed By: #### L [id number], LAB17 ####Natural Gas Inspector: HANS PAULSON ([id number])[facility] [place] (SBHLAB)[address] Calcium [Mass/Vol] 9.0 mg/dL Normal 8.4-10.4 [facility] Comment on above: Performed By: #### L [id number], LAB17 ####Natural Gas Inspector: HANS PAULSON ([id number])[facility] [place] (SBHLAB)[address] Chloride [Moles/Vol] 93 mmol/L Low 98-107 [facility] Comment on above: Performed By: #### L [id number], LAB17 ####Natural Gas Inspector: HANS PAULSON ([id number])[facility] (SBHLAB)[address] CO2 [Moles/Vol] 35 mmol/L High 22-30 [facility] Comment on above: Performed By: #### L [id number], LAB17 ####Natural Gas Inspector: HANS PAULSON ([id number])[facility] [place] (HLAB)[address] Creatinine [Mass/Vol] 1.33 mg/dL High 0.52-1.04 [facility] Comment on above: Performed By: #### L [id number], LAB17 ####Natural Gas Inspector: HANS PAULSON ([id number])[facility] [place] (SBHLAB)[address] GLOMERULAR FILTRATION RATE ML/MIN/1.73 SQ M.PREDICTED 44.2 mL/min/1.73m*2 Low >60.0 [facility] Comment on above: Result Comment: Calc ulation based on the Chronic Kidney Disease Epidemiology Collaboration (CKD-EPI) equation refit without adjustment for race Performed By: #### L [id number], LAB17 ####Natural Gas Inspector: HANS PAULSON ([id number])[facility] [place] (SBHLAB)[address] Glucose [Mass/Vol] 99 mg/dL Normal 70-100 [facility] Comment on above: Performed By: #### L [id number], LAB17 ####Natural Gas Inspector: HANS PAULSON ([id number])[facility]ERNorm[facility] (SBHLAB)[address] Potassium [Moles/Vol] 2.3 mmol/L Critically low 3.5-5.1 [facility] Comment on above: Performed By: #### L [id number], LAB17 ####Natural Gas Inspector: HANS PAULSON ([id number])[facility]ERNorm[facility] [place] (SBHLAB)[address] Protein [Mass/Vol] 7.1 g/dL Normal 6.3-8.2 [facility] Comment on above: Performed By: #### L [id number], LAB17 ####Natural Gas Inspector: HANS PAULSON ([id number])[facility]ERNorm[facility] (SBHLAB)[address] Sodium [Moles/Vol] 140 mmol/L Normal 135-145 [facility] Comment on above: Performed By: #### L [id number], LAB17 ####Natural Gas Inspector: HANS PAULSON ([id number])[facility] (SBHLAB)[address] Urea nitrogen [Mass/Vol] 36 mg/dL High 7-17 [facility] Comment on above: Performed By: #### L [id number], LAB17 ####Natural Gas Inspector: HANS PAULSON ([id number])[facility] (SBHLAB)[address] CERVICAL SPINE WO IV CONT RASTon 09-19-2023 CT CERVICAL SPINE WO IV CONTRAST Normal [facility] CT Cervical spine WO contras ton 09-19-2023 Patient Name: GONZALO DELUCA : 1955 Exam Date/Time: 09/19/2023 17:44 Procedure: CT CERVICAL SPINE WO IV CONTRAST Ordering Provider: WEATHERS KEVIN Reason For Exam: syncope and fall Examination: CT cervical spine Indication: syncope and fall Technique: Axial CT images of the cervical spine were obtained at 1 mm intervals. Dose reduction was employed with automatic exposure control. Sagittal and coronal reconstructions were provided as well. Findings: Minimal anterior listhesis present at C7/T1. Otherwise, the cervical vertebral bodies are in gross anatomic alignment. There is no acute fracture. Small sclerotic lesion is present anteriorly within the C7 vertebral body. Moderate to severe multilevel degenerative facet changes are present, greater on the right. Advanced right-sided foraminal narrowing present at C4/C5. Mild to moderate right-sided foraminal narrowing noted at C5/C6. Moderate or slightly greater foraminal narrowing present at C6/C7. Moderate disc space loss present at C6/C7. There is no prevertebral soft tissue swelling. No cervical adenopathy is demonstrated. Scarring or atelectasis of the upper lungs noted. [facility] Clark Duffy MD - 09/19/2023 Patient Name: [facility]ON[facility]CA : 1955 [id number] Exam Date/Time: 09/19/2023 17:44 Procedure: CT CERVICAL SPINE WO IV CONTRAST Ordering Provider: WEATHERS KEVIN Reason For Exam: syncope and fall Examination: CT cervical spine Indication: syncope and fall Technique: Axial CT images of the cervical spine were obtained at 1 mm intervals. Dose reduction was employed with automatic exposure control. Sagittal and coronal reconstructions were provided as well. Findings: Minimal anterior listhesis present at C7/T1. Otherwise, the cervical vertebral bodies are in gross anatomic alignment. There is no acute fracture. Small sclerotic lesion is present anteriorly within the C7 vertebral body. Moderate to severe multilevel degenerative facet changes are present, greater on the right. Advanced right-sided foraminal narrowing present at C4/C5. Mild to moderate right-sided foraminal narrowing noted at C5/C6. Moderate or slightly greater foraminal narrowing present at C6/C7. Moderate disc space loss present at C6/C7. There is no prevertebral soft tissue swelling. No cervical adenopathy is demonstrated. Scarring or atelectasis of the upper lungs noted. IMPRESSION: Impression: No acute osseous abnormality. Nonspecific sclerotic lesion within the C7 vertebral body may represent a bone island among others. Correlate with patient risk factors and consider follow-up whole-body bone scan as clinically directed. There is a left-sided catheter from a subclavian approach with catheter tip in the SVC. Examination: CT thoracic spine Indication: syncope and fall Technique: Axial CT images of the thoracic spine were obtained at 1 mm intervals Sagittal and coronal reconstructions were reviewed as well. Dose reduction was employed with automatic exposure control. Findings: Counting will be based on the small sclerotic lesion anteriorly within the C7 Recent compression fractures are present in the midthoracic region, most pronounced at T5 and T8. Moderate compression deformity of T7. Moderate compression deformity of L1. Fractures appear remote. There is thoracic kyphosis and osteopenia. There is peribronchial thickening, bilaterally. Fairly extensive emphysematous changes are present. Mild infiltrate, scar or atelectasis of the right lung base present. Mild atelectasis or scar of the left lung base noted. No sizable pulmonary nodule. Impression: Moderate to severe compression fracture of T5 and T8. Moderate compression deformity of T7. Moderate L1 compression fracture. Osteopenia. Stents of emphysematous changes with peribronchial thickening and scarring. Probable mild right basilar airspace disease. Bronchiectasis is also present. Report Dictated on Electronically Signed By: Clark Duffy MD Electronically Signed Date/Time: 09/19/2023 6:01 PM EDT [facility] CT HEAD WO IV CONTRASTon CT HEAD WO IV CONTRAST Normal [facility] CT Head WO contraston 2023 No intracranial traumatic injuries. Report Dictated on Electronically Signed By: Brando Tejada MD Electronically Signed Date/Time: 09/19/2023 5:55 PM [facility] [employer] Patient Name: GONZALO DELUCA : 1955 Exam Date/Time: 09/19/2023 17:43 Procedure: CT HEAD WO IV CONTRAST Ordering Provider: WEATHERS KEVIN Reason For Exam: syncope and fall, hit head CT HEAD WITHOUT CONTRAST CLINICAL HISTORY: syncope and fall, hit head COMPARISON: 05/21/2022 TECHNIQUE: Helical CT of the brain without contrast. Dose reduction was employed with automated exposure control. FINDINGS: Acute Findings: No hemorrhage, mass, or infarct. Chronic Changes: Unchanged small area of encephalomalacia in the lateral aspect of the right occipital lobe. Ventricles and sulci: Within normal limits for age. Other: Right scleral banding. Clear paranasal sinuses. No calvarial fractures. [facility] Brando Tejada M D - 09/19/2023 Patient Name: GONZALO DELUCA : 1955 Exam Date/Time: 09/19/2023 17:43 Procedure: CT HEAD WO IV CONTRAST Ordering Provider: WEATHERS KEVIN Reason For Exam: syncope and fall, hit head CT HEAD WITHOUT CONTRAST CLINICAL HISTORY: syncope and fall, hit head COMPARISON: 05/21/2022 TECHNIQUE: Helical CT of the brain without contrast. Dose reduction was employed with automated exposure control. FINDINGS: Acute Findings: No hemorrhage, mass, or infarct. Chronic Changes: Unchanged small area of encephalomalacia in the lateral aspect of the right occipital lobe. Ventricles and sulci: Within normal limits for age. Other: Right scleral banding. Clear paranasal sinuses. No calvarial fractures. IMPRESSION: No intracranial traumatic injuries. Report Dictated on Electronically Signed By: Brando Tejada MD Electronically Signed Date/Time: 09/19/2023 5:[address] Head WO contrastOrdered B y: Brando Tejada on 09-19-2023 [employer] Work Phone: CT THORACIC SPINE WO IV CONT RASTon 09-19-2023 CT THORACIC SPINE WO IV CONTRAST Normal [facility] CT Thoracic spine WO contras ton 09-19-2023 Patient Name: GONZALO DELUCA : 1955 Exam Date/Time: 09/19/2023 17:48 Procedure: CT THORACIC SPINE WO IV CONTRAST Ordering Provider: WEATHERS KEVIN Reason For Exam: compression frx seen on xray Examination: CT cervical spine Indication: syncope and fall Technique: Axial CT images of the cervical spine were obtained at 1 mm intervals. Dose reduction was employed with automatic exposure control. Sagittal and coronal reconstructions were provided as well. Findings: Minimal anterior listhesis present at C7/T1. Otherwise, the cervical vertebral bodies are in gross anatomic alignment. There is no acute fracture. Small sclerotic lesion is present anteriorly within the C7 vertebral body. Moderate to severe multilevel degenerative facet changes are present, greater on the right. Advanced right-sided foraminal narrowing present at C4/C5. Mild to moderate right-sided foraminal narrowing noted at C5/C6. Moderate or slightly greater foraminal narrowing present at C6/C7. Moderate disc space loss present at C6/C7. There is no prevertebral soft tissue swelling. No cervical adenopathy is demonstrated. Scarring or atelectasis of the upper lungs noted. [facility] Clark Duffy MD - 09/19/2023 [facility] Name: [facility]ON[facility]AL[facility]UCA : 1955 [id number] Exam Date/Time: 09/19/2023 17:48 Procedure: CT THORACIC SPINE WO IV CONTRAST Ordering Provider: WEATHERS KEVIN Reason For Exam: compression frx seen on xray Examination: CT cervical spine Indication: syncope and fall Technique: Axial CT images of the cervical spine were obtained at 1 mm intervals. Dose reduction was employed with automatic exposure control. Sagittal and coronal reconstructions were provided as well. Findings: Minimal anterior listhesis present at C7/T1. Otherwise, the cervical vertebral bodies are in gross anatomic alignment. There is no acute fracture. Small sclerotic lesion is present anteriorly within the C7 vertebral body. Moderate to severe multilevel degenerative facet changes are present, greater on the right. Advanced right-sided foraminal narrowing present at C4/C5. Mild to moderate right-sided foraminal narrowing noted at C5/C6. Moderate or slightly greater foraminal narrowing present at C6/C7. Moderate disc space loss present at C6/C7. There is no prevertebral soft tissue swelling. No cervical adenopathy is demonstrated. Scarring or atelectasis of the upper lungs noted. IMPRESSION: Impression: No acute osseous abnormality. Nonspecific sclerotic lesion within the C7 vertebral body may represent a bone island among others. Correlate with patient risk factors and consider follow-up whole-body bone scan as clinically directed. There is a left-sided catheter from a subclavian approach with catheter tip in the SVC. Examination: CT thoracic spine Indication: syncope and fall Technique: Axial CT images of the thoracic spine were obtained at 1 mm intervals Sagittal and coronal reconstructions were reviewed as well. Dose reduction was employed with automatic exposure control. Findings: Counting will be based on the small sclerotic lesion anteriorly within the C7 Recent compression fractures are present in the midthoracic region, most pronounced at T5 and T8. Moderate compression deformity of T7. Moderate compression deformity of L1. Fractures appear remote. There is thoracic kyphosis and osteopenia. There is peribronchial thickening, bilaterally. Fairly extensive emphysematous changes are present. Mild infiltrate, scar or atelectasis of the right lung base present. Mild atelectasis or scar of the left lung base noted. No sizable pulmonary nodule. Impression: Moderate to severe compression fracture of T5 and T8. Moderate compression deformity of T7. Moderate L1 compression fracture. Osteopenia. Stents of emphysematous changes with peribronchial thickening and scarring. Probable mild right basilar airspace disease. Bronchiectasis is also present. Report Dictated on Electronically Signed By: Clark Duffy MD Electronically Signed Date/Time: 09/19/2023 6:01 PM EDT [facility] Radiology Study observation (narrative) [facility] Comprehensive metabolic 1998 panelOrdered By: Mara Hale on 09-19-2023 Albumin [Mass/Vol] 3.9 g/dL 3.5 - 5.0 g/dL [facility] ALP [Catalytic activity/Vol] 115 U/L 38 - 126 U/L [facility] ALT [Catalytic activity/Vol] 38 U/L High 0 - 34 U/L [facility] Anion gap [Moles/Vol] 13 mmol/L 3 - 13 mmol/L [facility] AST [Catalytic activity/Vol] 35 U/L 15 - 46 U/L [facility] Bilirubin [Mass/Vol] 0.5 mg/dL 0.2 - 1 .3 mg/dL [facility] Calcium [Mass/Vol] 9.0 mg/dL 8.4 - 10. 4 mg/dL [facility] Chloride [Moles/Vol] 93 mmol/L Low 98 - 10 7 mmol/L [facility] CO2 [Moles/Vol] 35 mmol/L High 22 - 30 mmol/L [facility] Creatinine [Mass/Vol] 1.33 mg/dL High 0.52 - 1.04 mg/dL [facility] GFR/1.73 sq M.predicted MDRD (S/P/Bld) [Vol rate/Area] 44.2 mL/min/{1.73_m2} Low - PINF [facility] Comment on above: Calculation based on the Chronic Kidney Disease Epidemiology Collaboration (CKD-EPI) equation refit without adjustment for race Glucose [Mass/Vol] 99 mg/dL 70 - 100 mg/dL [facility] Interpretation and review of laboratory results Abnormal [facility] Potassium [Moles/Vol] 2.3 mmol/L Critically low 3.5 - 5.1 mmol/L [facility] Protein [Mass/Vol] 7.1 g/dL 6.3 - 8.2 g/dL [facility] Sodium [Moles/Vol] 140 mmol/L 135 - 145 mmol/L [facility] Urea nitrogen [Mass/Vol] 36 mg/dL High 7 - 17 mg/d L [facility] ECG 12-LEADon 09-19-2023 ECG 12-LEAD IMPRESSION: Sinus rhythm Inferior infarct, old Prolonged QT interval No significant changes compared to previous Electronically Signed On 09-19-2023 18:04:00 EDT by Jono Weathers Normal [facility] ED Nursing Noteon 09-19-2023 ED Nursing Note Floor advised of pt coming to floor. Elizabeth Garzon, EMT 09/19/231945 Normal [facility] ED Nursing Note Pt provided with a toni laurie and chicken salad sandwich. Elizabeth Garzon, EMT 09/19/231939 ED Nursing Note Pt on 2lpm of oxygen . Pt 89% on room air. Oxygen increased to 3lpm. Elizabeth Garzon, EMT 09/19/23 1732 Normal [facility] ED Nursing Note Pt to radiology. Elizabeth Garzon, EMT 09/19/23 1711 Normal [facility] ED Provider Noteon ED Provider Note Normal [facility] - Chemistry and C hemistry - challengeon 09-19-2023 Troponin I.cardiac [Mass/Vol] 0.031 ng/mL [facility] - 0.034 ng/mL [facility] Troponin I.cardiac [Mass/Vol] 0.025 ng/mL [facility] - 0.034 ng/mL [facility] Laboratory - Chemistry and C hemistry - challengeOrdered By: Rosa Elena Puente on 09-19-2023 Base excess Calc (BldV) [Moles/Vol] 4.1 mmol/L High -3.0 - 3.0 mmol/L [facility] CO2 (BldV) [Partial pressure] 49.6 mm[Hg] [facility] CO2 [Moles/Vol] 31.4 mmol/L High 23.0 - 30.0 mmol/L [facility] HCO3 (Bld) [Moles/Vol] 29.9 mmol/L 21.0 - 30.0 mmol/L [facility] Oxygen (BldV) [Partial pressure] 50.1 mm[Hg] mm Hg [facility] pH (BldV) 7.398 [pH] 7.320 - 7.420 [facility] Laboratory - Hematology and Cell countsOrdered By: Rosa Elena Puente on 09-19-2023 Hemoglobin (Bld) [Mass/Vol] 13.4 g/dL Screen only [facility] MAGNESIUMon 09-19-2023 Magnesium [Mass/Vol] 2.7 mg/dL High 1.6-2.3 [facility] Comment on above: Performed By: #### L [id number], [id number] ####Natural Gas Inspector: HANS PAULSON ([id number])[facility] ([facility])[address] [place] [address] No Panel InformationOrdered By: Rosa Elena Puente on 09-19-2023 Interpretation and review of laboratory results Abnormal [facility] Source Of Oxygen Nasal cannula [facility] Assessment of oxygenation is best done with an arterial blood gas determination. Reference ranges for pO2, bicarbonate, and base excess are for mixed venous blood. Specimens drawn from a peripheral vein will often have higher values. [facility] No Panel Informationon 09-18 P [place] 25 degrees [facility] MI Interval 140 ms [facility] QRS [place] -48 degrees [facility] QRSD Interval [address] [facility] QT Interval 468 ms [facility] QTC Interval 594 ms [facility] T Wave [place] 0 degrees [facility] Sinus rhythm Inferior infarct, old Prolonged QT interval No significant changes compared to previous Electronically Signed On 09-19-2023 18:04:00 EDT by Jono Weathers CV Jono Viramontes MD - 09/19/2023 IMPRESSION: Sinus rhythm Inferior infarct, old Prolonged QT interval No significant changes compared to previous Electronically Signed On 09-19-2023 18:04:00 EDT by Jono Weathers [facility] Impression: No acute osseous abnormality. Nonspecific sclerotic lesion within the C7 vertebral body may represent a bone island among others. Correlate with patient risk factors and consider follow-up whole-body bone scan as clinically directed. There is a left-sided catheter from a subclavian approach with catheter tip in the SVC. Examination: CT thoracic spine Indication: syncope and fall Technique: Axial CT images of the thoracic spine were obtained at 1 mm intervals Sagittal and coronal reconstructions were reviewed as well. Dose reduction was employed with automatic exposure control. Findings: Counting will be based on the small sclerotic lesion anteriorly within the C7 Recent compression fractures are present in the midthoracic region, most pronounced at T5 and T8. Moderate compression deformity of T7. Moderate compression deformity of L1. Fractures appear remote. There is thoracic kyphosis and osteopenia. There is peribronchial thickening, bilaterally. Fairly extensive emphysematous changes are present. Mild infiltrate, scar or atelectasis of the right lung base present. Mild atelectasis or scar of the left lung base noted. No sizable pulmonary nodule. Impression: Moderate to severe compression fracture of T5 and T8. Moderate compression deformity of T7. Moderate L1 compression fracture. Osteopenia. Stents of emphysematous changes with peribronchial thickening and scarring. Probable mild right basilar airspace disease. Bronchiectasis is also present. Report Dictated on Electronically Signed By: Clark Duffy MD Electronically Signed Date/Time: 09/19/2023 6:01 PM [facility] Radiographic feature s suggestive of COPD. Compression fractures in the midthoracic spine with thoracic kyphosis. EXAMINATION: AP pelvis one view INDICATION: sob, hx copd on 2-3L NC FINDINGS: No acute fracture or dislocation is demonstrated. There are three cannulated screws fixating a subcapital left femoral neck fracture. Mild joint space loss laterally within the left hip. Moderate degenerative disc disease of the lower lumbar spine noted. The soft tissues are grossly unremarkable. IMPRESSION: No acute osseous abnormality. Report Dictated on Electronically Signed By: Clark Duffy MD Electronically Signed Date/Time: 09/19/2023 5:26 PM [facility] Radiology Study observation (narrative) [facility] Panel InformationOrdered By: Clark Duffy on 09-19-2023 [facility] Work Phone: Nursing Noteon 09-19-2023 Nursing Note Normal [facility] Nursing Note Patient arrived from er to room 463 bed 2. Patient is alert and oriented. Realized patient required private room bed coordinator notified. Will be transferred when bed available. Normal [facility] TROPONIN Ion 09-19-2023 Troponin I.cardiac [Mass/Vol] 0.031 ng/mL Normal <0.034 [facility] Comment on above: Result Comment: KYM Gilmore COMMENTS:Patients with high levels of Biotin oral intake (ie >5 mg/day) may have falsely decreased Troponin levels. Performed By: #### L [id number], [id number] ####Natural Gas Inspector: HANS PAULSON ([id number])[facility] ([facility])[address] [place] [address] TROPONIN, WITH SERIAL REFLEX on 09-19-2023 Troponin I.cardiac [Mass/Vol] 0.025 ng/mL Normal <0.034 [facility] Comment on above: Result Comment: KYM Gilmore COMMENTS:Patients with high levels of Biotin oral intake (ie >5 mg/day) may have falsely decreased Troponin levels. Performed By: #### L [id number], [id number] ####Natural Gas Inspector: HANS PAULSON ([id number])[facility] Troponin I.cardiac [Mass/Vol ]on 09-19-2023 Interpretation and review of laboratory results Normal [facility] Patients with high levels of Biotin oral intake (ie >5 mg/day) may have falsely decreased Troponin levels. [facility] Interpretation and review of laboratory results Normal [facility] Patients with high levels of Biotin oral intake (ie >5 mg/day) may have falsely decreased Troponin levels. [facility] Urinalysis complete panel (U )Ordered By: Chrissy Aleaxndra on 09-19-2023 Bacteria LM.HPF (Urine sed) [#/Area] Negative Negative /HPF [facility] Bilirubin Ql (U) Negative Negative mg/dL [facility] Clarity (U) Clear Clear [facility] Color (U) Yellow Lt. Yellow [facility] Epithelial cells.squamous LM.HPF (Urine sed) [#/Area] 0-2 [facility] h Glucose Ql (U) Normal Normal (<70) mg/dL [facility] Hemoglobin Ql (U) Negative Negative mg/dL [facility] Hyaline casts Auto (Urine sed) [#/Area] 3-5 Abnormal Negative /LPF [facility] Interpretation and review of laboratory results Abnormal [facility] Ketones (U) [Mass/Vol] Negative Negat kenton mg/dL [facility] Leukocyte esterase Test strip Ql (U) Negative Negative Sandra/uL [facility] Mucus LM.HPF (Urine sed) [#/Area] Few Negative /LPF [facility] Nitrite Ql (U) Negative Negative [facility] Non-Squamous Epithalial Cells, Urine 0-2 Abnormal Negative /HPF [facility] pH (U) 5.5 [pH] 5.0 - 8.0 pH [facility] Protein (U) [Mass/Vol] 20 mg/dL Abnormal Negative [facility] RBC LM.HPF (Urine sed) [#/Area] 0-2 [facility] Specific gravity (U) [Rel density] 1.018 1.005 - 1.030 [facility] Urobilinogen (U) [Mass/Vol] Normal Normal (0-1) mg/dL [facility] WBC LM.HPF (Urine sed) [#/Area] 3-5 [facility] Vital signsOrdered By: Rosa Elena Puente on 09-19-2023 Oxygen saturation in Venous blood 85.8 % [facility] Vital signson 09-19-2023 Heart rate 97 /min bpm [facility] XR Chest 2 Viewson Patient Name: GONZALO DELUCA : 1955 Exam Date/Time: 09/19/2023 17:25 Procedure: XR CHEST 2 VIEWS Ordering Provider: WEATHERS KEVIN Reason For Exam: sob, hx copd on 2-3L NC EXAMINATION: PA/Lateral chest INDICATION: sob, hx copd on 2-3L NC FINDINGS: There is no focal consolidation, sizable pleural effusion or pneumothorax. There is hyperinflation of the lungs with flattening of the hemidiaphragms and increased AP dimension of the chest. The cardiac silhouette and mediastinum are within normal limits. Left-sided Mediport catheter tip overlies the SVC. The spine is osteopenic. Suspect compression fractures in the midthoracic region with thoracic kyphosis. [facility] Clark Duffy MD - 09/19/2023 Patient Name: GONZALO DELUCA : 1955 Exam Date/Time: 09/19/2023 17:25 Procedure: XR CHEST 2 VIEWS Ordering Provider: WEATHERS KEVIN Reason For Exam: sob, hx copd on 2-3L NC EXAMINATION: PA/Lateral chest INDICATION: sob, hx copd on 2-3L NC FINDINGS: There is no focal consolidation, sizable pleural effusion or pneumothorax. There is hyperinflation of the lungs with flattening of the hemidiaphragms and increased AP dimension of the chest. The cardiac silhouette and mediastinum are within normal limits. Left-sided Mediport catheter tip overlies the SVC. The spine is osteopenic. Suspect compression fractures in the midthoracic region with thoracic kyphosis. IMPRESSION: Radiographic features suggestive of COPD. Compression fractures in the midthoracic spine with thoracic kyphosis. EXAMINATION: AP pelvis one view INDICATION: sob, hx copd on 2-3L NC FINDINGS: No acute fracture or dislocation is demonstrated. There are three cannulated screws fixating a subcapital left femoral neck fracture. Mild joint space loss laterally within the left hip. Moderate degenerative disc disease of the lower lumbar spine noted. The soft tissues are grossly unremarkable. IMPRESSION: No acute osseous abnormality. Report Dictated on Electronically Signed By: Clark Duffy MD Electronically Signed Date/Time: 09/19/2023 5:26 PM EDT [facility] Radiology Study observation (narrative) [facility] XR Pelvis 1 or 2 Viewson Patient Name: GONZALO DELUCA : 1955 Exam Date/Time: 09/19/2023 17:24 Procedure: XR PELVIS 1-2 VIEWS Ordering Provider: WEATHERS KEVIN Reason For Exam: left sided hip pain s/p fall EXAMINATION: PA/Lateral chest INDICATION: sob, hx copd on 2-3L NC FINDINGS: There is no focal consolidation, sizable pleural effusion or pneumothorax. There is hyperinflation of the lungs with flattening of the hemidiaphragms and increased AP dimension of the chest. The cardiac silhouette and mediastinum are within normal limits. Left-sided Mediport catheter tip overlies the SVC. The spine is osteopenic. Suspect compression fractures in the midthoracic region with thoracic kyphosis. [facility] Clark Duffy MD - 09/19/2023 Patient Name: GONZALO DELUCA : 1955 Exam Date/Time: 09/19/2023 17:24 Procedure: XR PELVIS 1-2 VIEWS Ordering Provider: WEATHERS KEVIN Reason For Exam: left sided hip pain s/p fall EXAMINATION: PA/Lateral chest INDICATION: sob, hx copd on 2-3L NC FINDINGS: There is no focal consolidation, sizable pleural effusion or pneumothorax. There is hyperinflation of the lungs with flattening of the hemidiaphragms and increased AP dimension of the chest. The cardiac silhouette and mediastinum are within normal limits. Left-sided Mediport catheter tip overlies the SVC. The spine is osteopenic. Suspect compression fractures in the midthoracic region with thoracic kyphosis. IMPRESSION: Radiographic features suggestive of COPD. Compression fractures in the midthoracic spine with thoracic kyphosis. EXAMINATION: AP pelvis one view INDICATION: sob, hx copd on 2-3L NC FINDINGS: No acute fracture or dislocation is demonstrated. There are three cannulated screws fixating a subcapital left femoral neck fracture. Mild joint space loss laterally within the left hip. Moderate degenerative disc disease of the lower lumbar spine noted. The soft tissues are grossly unremarkable. IMPRESSION: No acute osseous abnormality. Report Dictated on Electronically Signed By: Clark Duffy MD Electronically Signed Date/Time: 09/19/2023 5:26 PM EDT [facility] Radiology Study observation (narrative) Abe Abraham 09-08-2023 CNOV Office Visit ([facility] ) GONZALO DELUCA ([id number]) 1955 F Date Time Provider Department 09/08/23 3:20 PM BARBI GOLDBERG [facility] During your visit today, we recorded the following information about you: Temperature Pulse Blood pressure Weight 99.3 degrees 105/minute 139/87 55.5 kg Height 1.641 m Tate Weathers MA 09/08/2023 4:09 PM Signed Mammogram Screening Never done Colorectal Cancer Screening Never done RSV Vaccine(1 - 1-dose 60+ series) Never done Shingrix Vaccine(2 of 2) due on 12/06/2019 Bone Density Screening due on 2021 Lung Cancer Screening due on 10/14/2022 Covid-19 Vaccine(2022- season) Never done Advance Directive Discussion due on 03/21/2023 Barbi Goldberg MD 09/08/2023 4:09 PM Signed Gonzalo Deluca is a 67 year old female who presents today with concern or complaint of Patient presents with: Shingles: On left side onset 2 days ago had pain left lower back then noted she had a rash it's burning has tried cold which did help some has never had shingles before, did not get the vaccine COPD on oxygen breathing always difficult / chronic SOB, stable interested in steroids if that would help her shingles pain no DM has done well w/ steroids in the past PAST MEDICAL HISTORY Diagnosis Date COPD (chronic obstructive pulmonary disease) (HCC) DDD (degenerative disc disease), lumbar Encounter for chronic pain management Major depression, recurrent, chronic (HCC) Osteoporosis Pulmonary nodule, right 2016 MEDS reviewed ALLERGIES: Seasonal Allergies PHYSICAL EXAMINATION: BP 139/87 Pulse 105 Temp 37.4 ?C (99.3 ?F) (Temporal) Ht 164.1 cm (5' 4.61") Wt 55.5 kg (122 lb 5.7 oz) SpO2 92% BMI 20.61 kg/m? General appearance: alert, cooperative, pleasant, in NAD, on oxygen per nasal cannula, in wheelchair Skin: Rash in dermatomal distribution left lumbar back radiating around to left side of lower abdomen - erythematous, sl indurated, few vessicles ASSESSMENT/PLAN: 1. Herpes zoster without complication - ICD9: 053.9, ICD10: B02.9 onset 2 days ago, tx w/ valtrex tid x 7 days will add prednisone in effort to improve pain control and given add'l benefit to comorbidity of COPD, also discussed topical lidocaine spray ok, cool compress ok, f/u if sx not improving or any concerns, briefly discussed add'l option of gabapentin for nerve pain if this plan is insufficient or or if persistent pain/postherpetic neuralgia after tx - VALACYCLOVIR 1 GRAM TABLET - PREDNISONE 10 MG TABLET Barbi Goldberg MD Allergies As of Date: 09/08/2023 Noted Allergy Reaction SEASONAL ALLERGIES 08/16/2017 5 - Intolerance Date Reviewed: 09/08/2023 Reviewed by: Tate Weathers MA - Fully Assessed Reason for Visit: Shingles [870] Cmt: On left side Primary Visit Diagnosis:Herpes zoster without complication [B02.9] Order(s):valACYclovir (VALTREX) 1 gram tabletTake 1 tablet by mouth three times a day for 7 days.Disp: 21 tabletRfl: 0 predniSONE (DELTASONE) 10 mg tabletTake 4 tablets daily by mouth for 3 days, then take 3 tablets daily for 3 days, then take 2 tablets daily for 3 days, then 1 tablet daily for 3 days then one-half tablet daily for 2 daysDisp: 31 tabletRfl: 0 Prescriptions as of 09/08/2023 - QUEtiapine (SEROQUEL) 100 mg tablet TAKE 2 TABLETS BY MOUTH AT BEDTIME NEEDED - alendronate (FOSAMAX) 70 mg tablet TAKE 1 TABLET BY MOUTH ONE TIME A WEEK. - tiotropium bromide (SPIRIVA RESPIMAT) 2.5 mcg/actuation inhaler INHALE 2 PUFFS BY MOUTH ONCE DAILY DIRECTED - atorvastatin (LIPITOR) 40 mg tablet TAKE 1 TABLET BY MOUTH EVERY DAY AT NIGHT - albuterol (PROVENTIL) 2.5 mg /3 mL (0.083 %) nebulizer solution INHALE 3 ML VIA NEBULIZER EVERY 4 HOURS NEEDED FOR WHEEZE OR FOR SHORTNESS OF BREATH - valACYclovir (VALTREX) 1 gram tablet Take 1 tablet by mouth three times a day for 7 days. - predniSONE (DELTASONE) 10 mg tablet Take 4 tablets daily by mouth for 3 days, then take 3 tablets daily for 3 days, then take 2 tablets daily for 3 days, then 1 tablet daily for 3 days then one-half tablet daily for 2 days - oxyCODONE-acetaminophe n (PERCOCET) 5-325 mg tablet Take 1 tablet by mouth every 6 hours as needed for pain for up to 30 days. - cyclobenzaprine (FLEXERIL) 5 mg tablet take 1 tablet by mouth twice a day as needed - buPROPion XL (WELLBUTRIN XL) 150 mg 24 hr tablet take 1 tablet by mouth every day - fluticasone-salmeterol (ADVAIR DISKUS) 250-50 mcg/dose inhaler Inhale 1 Puff as instructed two times a day. RINSE AND GARGLE MOUTH WITH WATER AFTER EACH USE. - PARoxetine (PAXIL) 40 mg tablet Take 1 tablet by mouth once daily. Take 1/2 tablet at bedtime for 2 weeks, then increase to full tablet QHS. - diclofenac (VOLTAREN ARTHRITIS PAIN) 1 % topical gel Apply 2 g to affected area four times daily. - Mirtazapine (REMER (more content not included)... Normal [facility] CNPNon 09-06-2023 ANUEL Telephone ([facility]) YOSIJACEA ([id number]) 1955 F Date Time Provider Department 09/06/23 HERMINIA CASE During your visit today, we recorded the following information about you: Lala Shelley 09/06/2023 12:30 PM Signed Gonzalo is calling Herminia Case MD today with concern regarding Electronic Communication (FAX from [facility] is going to be coming over that needs to be faxed back to them ) Patient has been identified by name and birthdate. Duration of symptoms: N/A Person calling: self daughter: Karishma Call patient at: at home [phone] (home) [phone] (cell) Was an appointment scheduled: No Closing statement: Results or non-symptom based questions: Thank you for calling [facility], your call will be returned within the next business day. Lala MckeonWhit Zimmerman LPN 09/07/2023 9:05 AM Signed LM for patient letting her know we have not received the form from [facility]. Whit Shay LPN Allergies As of Date: 09/06/2023 Noted Allergy Reaction SEASONAL ALLERGIES 08/16/2017 5 - Intolerance Date Reviewed: 05/02/2023 Reviewed by: Whit Sahy LPN - Fully Assessed Reason for Visit: Electronic Communication [890] Cmt: FAX from [facility] is going to be coming over that needs to be faxed back to them Prescriptions as of 09/07/2023 - oxyCODONE-acetaminophe n (PERCOCET) 5-325 mg tablet Take 1 tablet by mouth every 6 hours as needed for pain for up to 30 days. - cyclobenzaprine (FLEXERIL) 5 mg tablet take 1 tablet by mouth twice a day as needed - buPROPion XL (WELLBUTRIN XL) 150 mg 24 hr tablet take 1 tablet by mouth every day - fluticasone-salmeterol (ADVAIR DISKUS) 250-50 mcg/dose inhaler Inhale 1 Puff as instructed two times a day. RINSE AND GARGLE MOUTH WITH WATER AFTER EACH USE. - PARoxetine (PAXIL) 40 mg tablet Take 1 tablet by mouth once daily. Take 1/2 tablet at bedtime for 2 weeks, then increase to full tablet QHS. - diclofenac (VOLTAREN ARTHRITIS PAIN) 1 % topical gel Apply 2 g to affected area four times daily. - Mirtazapine (REMERON) 15 mg tablet Take 1 tablet by mouth daily at bedtime. - montelukast (SINGULAIR) 10 mg tablet Take 10 mg by mouth daily at bedtime. - diclofenac (VOLTAREN) 1 % topical gel Apply 4 g to affected area. - QUEtiapine (SEROQUEL) 100 mg tablet TAKE 2 TABLETS BY MOUTH AT BEDTIME NEEDED - alendronate (FOSAMAX) 70 mg tablet TAKE 1 TABLET BY MOUTH ONE TIME A WEEK. - tiotropium bromide (SPIRIVA RESPIMAT) 2.5 mcg/actuation inhaler INHALE 2 PUFFS BY MOUTH ONCE DAILY DIRECTED - atorvastatin (LIPITOR) 40 mg tablet TAKE 1 TABLET BY MOUTH EVERY DAY AT NIGHT - fluticasone (FLONASE) 50 mcg/actuation nasal spray Use 2 Sprays in each nostril once daily. - Nebulizers Use as directed. - albuterol (PROVENTIL) 2.5 mg /3 mL (0.083 %) nebulizer solution INHALE 3 ML VIA NEBULIZER EVERY 4 HOURS NEEDED FOR WHEEZE OR FOR SHORTNESS OF BREATH - albuterol HFA (PROVENTIL HFA, VENTOLIN HFA) 90 mcg/actuation inhaler Inhale 2 Puffs as instructed every 4 hours as needed for wheezing/shortness of breath. Problem List As Of Date 09/06/2023 Noted Resolved DDD (degenerative disc disease), lumbar [M51.36] Panlobular emphysema (HCC) [J43.1] Major depression, recurrent, chronic (HCC) [F33* Osteoporosis [M81.0] Pulmonary nodule, right [R91.1] Compression fracture of body of thoracic verteb*07/11/2018 Obesity, Class I, BMI 30-34.9 [E66.9] 12/07/2018 03/11/2023 Chronic midline low back pain without sciatica *03/23/2019 History of cervical cancer [Z85.41] 11/02/2019 COPD (chronic obstructive pulmonary disease) wi*02/02/2021 03/09/2023 Chronic respiratory failure with hypoxia (HCC) *08/06/2021 Moderate malnutrition (HCC) [E44.0] 01/22/2023 03/11/2023 Compression fracture of L4 lumbar vertebra, wit*03/11/2023 Moderate episode of recurrent major depressive *03/11/2023 PAUL (generalized anxiety disorder) [F41.1] 03/11/2023 Chronic pain syndrome [G89.4] 03/11/2023 03/11/2023 Former smoker [Z87.891] 04/10/2017 H/O: CVA (cerebrovascular accident) [Z86.73] 11/22/2019 Leukocytosis [D72.829] 04/10/2017 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/07/2019 05/20/2023 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 Basophils/100 WBC (Bld) 0.3 % 0.0 - 2.0 % [facility] Eosinophils (Bld) [#/Vol] 0.1 10*3/uL 0.0 - 0.5 10*3/uL [facility] [facility] Eosinophils/100 WBC (Bld) 0.8 % 0.0 - 6.0 % [facility] Erythrocyte distribution width (RBC) [Ratio] 12.6 % 11.5 - 15.0 % [facility] Hematocrit (Bld) [Volume fraction] 39.2 % 35.0 - 47.0 % [facility] Hemoglobin (Bld) [Mass/Vol] 12.6 g/dL 11.7 - 16.0 g/dL [facility] Immature granulocytes (Bld) [#/Vol] 0.1 10*3/uL High NINF - 0.1 10*3/uL [facility] Immature granulocytes/100 WBC (Bld) 0.5 % 0.0 - 2.0 % [facility] Interpretation and review of laboratory results Abnormal [facility] Lymphocytes (Bld) [#/Vol] 1.0 10*3/uL 1.0 - 4.3 10*3/uL [facility] Lymphocytes/100 WBC (Bld) 9.6 % Low 15.0 - 45.0 % [facility] MCH (RBC) [Entitic mass] 30.9 pg 26. 0 - 34.0 pg [facility] MCHC (RBC) [Mass/Vol] 32.1 % 30.5 - 36.0 % [facility] MCV (RBC) [Entitic vol] 96.1 fL 77.0 - 99.0 fL [facility] Monocytes (Bld) [#/Vol] 1.3 10*3/uL High 0.0 - 0.9 10*3/uL [facility] Monocytes/100 WBC (Bld) 12.9 % 5.0 - 13.0 % [facility] Neutrophils (Bld) [#/Vol] 7.8 10*3/uL High 1.8 - 7.5 10*3/uL [facility] Neutrophils/100 WBC (Bld) 75.9 % 38.0 - 82.0 % [facility] Nucleated RBC/100 WBC (Bld) [Ratio] 0.0 % [facility] Platelet mean volume (Bld) [Entitic vol] 9.8 fL 9.0 - 12.7 fL [facility] Platelets (Bld) [#/Vol] 351 10*3/uL 140 - 440 10*3/uL [facility] RBC (Bld) [#/Vol] 4.08 10*6/uL 3.80 - 5.2 0 10*6/uL [facility] WBC (Bld) [#/Vol] 10.3 10*3/uL 3.6 - 10.7 10*3/uL [facility] COVID-19, Flu A/B, and RSV C omboon 08-07-2023 Interpretation and review of laboratory results Normal [facility] Comprehensive metabolic 1998 panelon 08-07-2023 Albumin [Mass/Vol] 4.0 g/dL 3.5 - 5.0 g/dL [facility] ALP [Catalytic activity/Vol] 282 U/L High 38 - 126 U/L [facility] ALT [Catalytic activity/Vol] 47 U/L High 0 - 34 U/L [facility] Anion gap [Moles/Vol] 11 mmol/L 3 - 13 mmol/L [facility] AST [Catalytic activity/Vol] 62 U/L High 15 - 46 U/L [facility] Bilirubin [Mass/Vol] 1.1 mg/dL 0.2 - 1 .3 mg/dL [facility] Calcium [Mass/Vol] 9.2 mg/dL 8.4 - 10. 4 mg/dL [facility] Chloride [Moles/Vol] 96 mmol/L Low 98 - 10 7 mmol/L [facility] CO2 [Moles/Vol] 35 mmol/L High 22 - 30 mmol/L [facility] Creatinine [Mass/Vol] 0.57 mg/dL 0.52 - 1.04 mg/dL [facility] GFR/1.73 sq M.predicted MDRD (S/P/Bld) [Vol rate/Area] - PINF [facility] Comment on above: Calculation based on the Chronic Kidney Disease Epidemiology Collaboration (CKD-EPI) equation refit without adjustment for race Glucose [Mass/Vol] 119 mg/dL High 70 - 100 mg/dL [facility] Interpretation and review of laboratory results Abnormal [facility] Potassium [Moles/Vol] 3.1 mmol/L Low 3.5 - 5.1 mmol/L [facility] Protein [Mass/Vol] 7.9 g/dL 6.3 - 8.2 g/dL [facility] Sodium [Moles/Vol] 142 mmol/L 135 - 145 mmol/L [facility] Urea nitrogen [Mass/Vol] 10 mg/dL 7 - 17 mg/d L [facility] CHEMISTRY SPECIMEN MODERATELY HEMOLYZED; INTERPRET WITH CAUTION! [facility] Laboratory - Chemistry and C hemistry - challengeon 08-07-2023 Lactate [Moles/Vol] 2.0 mmol/L 0.7 - 2. 0 mmol/L [facility] Laboratory - Microbiology an d Antimicrobial susceptibilityon 08-07-2023 FLUAV RNA MILANA+probe Ql (Resp) Not detected Not Detected [facility] FLUBV RNA MILANA+probe Ql (Resp) Not detected Not Detected [facility] RSV RNA MILANA+probe Ql (Resp) Not detected Not Detected [facility] SARS-CoV-2 (COVID-19) RNA MILANA+probe Ql (Resp) Not detected Not Detected [facility] SARS-CoV-2 (COVID-19) RNA MILANA+probe Ql (Unsp spec) Methodology: real-time, RT-PCR The SARS-CoV-2, Flu A/B, and RSV Combo assay is intended for in vitro diagnostic use under the FDA Emergency Use Authorization (EUA). This test has not been FDA cleared or approved. In compliance with this authorization, please visit www.fda.gov/media/2774 35/download or www.fda.gov/media/1426 36/download to access the applicable information sheets. [facility] No Panel Informationon 08-06 Interpretation and review of laboratory results Normal [facility] P [place] [address] [facility] [place] Interval 137 ms [facility] QRS [place] -35 degrees [facility] QRSD Interval 95 ms [facility] Interval 246 ms [facility] QTC Interval 299 ms [facility] T Wave [place] 0 degrees [facility] Sinus rhythm Inferior infarct, old Electronically Signed On 08-07-2023 15:06:03 EDT by Lorenzo Jimenez MD - 08/07/2023 IMPRESSION: Sinus rhythm Inferior infarct, old Electronically Signed On 08-07-2023 15:06:03 EDT by Lorenzo Orozco [facility] Vital signson 08-07-2023 Heart rate 89 /min bpm [facility] XR Chest Single viewon 08-06 1. Lines/Tubes/Devices/Allen rdware: Left indwelling port present with tip projecting over SVC. Please confirm position and function of any catheters or attempted catheters clinically. 2. Lungs: No major volume loss. Persistent interstitial prominence likely reflects fibrosis. Elements of mild edema or infiltrate are difficult to exclude.. Limited due to portable technique. Consider follow-up with PA and lateral chest for persistent symptoms. 3. Pleura: No significant effusion. No significant pneumothorax. 4. Heart and mediastinum: Limited due to technique. 5. Upper abdomen: No acute process seen. 6. Thorax:No acute bony process Report Dictated on Electronically Signed By: Ramses Gamble MD Electronically Signed Date/Time: 08/07/2023 4:05 PM EDT [facility] Patient Name: GONZAOL DELUCA : 1955 Exam Date/Time: 08/07/2023 15:54 Procedure: XR CHEST 1 VIEW Ordering Provider: SOLIZ AMY Reason For Exam: COUGH EXAM TYPE: RADIOLOGIC EXAMINATION, CHEST, SINGLE VIEW FRONTAL (CXR SINGLE VIEW) EXAM DATE AND TIME: 08/07/2023 3:54 PM EDT INDICATION: Respiratory distress COMPARISON: 11/06/2022 TECHNIQUE: A single frontal view of the thorax was obtained and reviewed. Special views: None. [facility] Ramses Gamble MD - 08/07/2023 Patient Name: GONZALO DELUCA : 1955 Exam Date/Time: 08/07/2023 15:54 Procedure: XR CHEST 1 VIEW Ordering Provider: SOLIZ AMY Reason For Exam: COUGH EXAM TYPE: RADIOLOGIC EXAMINATION, CHEST, SINGLE VIEW FRONTAL (CXR SINGLE VIEW) EXAM DATE AND TIME: 08/07/2023 3:54 PM EDT INDICATION: Respiratory distress COMPARISON: 11/06/2022 TECHNIQUE: A single frontal view of the thorax was obtained and reviewed. Special views: None. IMPRESSION: 1. Lines/Tubes/Devices/Allen rdware: Left indwelling port present with tip projecting over SVC. Please confirm position and function of any catheters or attempted catheters clinically. 2. Lungs: No major volume loss. Persistent interstitial prominence likely reflects fibrosis. Elements of mild edema or infiltrate are difficult to exclude.. Limited due to portable technique. Consider follow-up with PA and lateral chest for persistent symptoms. 3. Pleura: No significant effusion. No significant pneumothorax. 4. Heart and mediastinum: Limited due to technique. 5. Upper abdomen: No acute process seen. 6. Thorax:No acute bony process Report Dictated on Electronically Signed By: Ramses Gamble MD Electronically Signed Date/Time: 08/07/2023 4:05 PM EDT [facility] Radiology Study observation (narrative) [facility] XR Chest Single viewOrdered By: Ramses Gamble on 08-07-2023 [facility] Work Phone: TOX SCREEN ROUT URon 024 Amphetamines Confirm (U) [Mass/Vol] Negative Negative [facility] Barbiturates Urine Negative Negative [facility] Benzodiazepines Urine Negative Negative [facility] Cannabinoids Screen Ql (U) Positive Abnormal Negative [facility] Cocaine Ql (U) Negative Negative [facility] Ethanol (U) [Mass/Vol] <11 mg/dL Cl [facility] Opiates Screen Ql (U) Negative Negative [facility] oxyCODONE cutoff Screen (U) [Mass/Vol] Positive Abnormal Negative [facility] Phencyclidine Ql (U) Negative Negative [facility] Basic metabolic 1998 panelon 02-18-2023 Anion gap [Moles/Vol] 5 mmol/L 3 - 13 mmol/L [facility] Calcium [Mass/Vol] 8.2 mg/dL Low 8.4 - 10. 4 mg/dL [facility] Chloride [Moles/Vol] 107 mmol/L 98 - 10 7 mmol/L [facility] CO2 [Moles/Vol] 28 mmol/L 22 - 30 mmol/L [facility] Creatinine [Mass/Vol] 0.55 mg/dL 0.52 - 1.04 mg/dL [facility] GFR/1.73 sq M.predicted MDRD (S/P/Bld) [Vol rate/Area] - PINF [facility] Comment on above: Calculation based on the Chronic Kidney Disease Epidemiology Collaboration (CKD-EPI) equation refit without adjustment for race Glucose [Mass/Vol] 113 mg/dL High 70 - 100 mg/dL [facility] Interpretation and review of laboratory results Abnormal [facility] Potassium [Moles/Vol] 3.8 mmol/L 3.5 - 5.1 mmol/L [facility] Sodium [Moles/Vol] 140 mmol/L 135 - 145 mmol/L [facility] Urea nitrogen [Mass/Vol] 14 mg/dL 7 - 17 mg/d L [facility] CBC W Auto Differential pane l (Bld)Ordered By: Yair Sanchez on 02-18-2023 Basophils (Bld) [#/Vol] 0.0 10*3/uL 0.0 - 0.2 10*3/uL [facility] Basophils/100 WBC (Bld) 0.7 % 0.0 - 2.0 % [facility] Eosinophils (Bld) [#/Vol] 0.4 10*3/uL 0.0 - 0.5 10*3/uL [facility] Eosinophils/100 WBC (Bld) 7.3 % High 1.0 - 6.0 % [facility] Erythrocyte distribution width (RBC) [Ratio] 14.0 % 11.5 - 14.5 % [facility] Hematocrit (Bld) [Volume fraction] 30.7 % Low 35.0 - 47.0 % [facility] Hemoglobin (Bld) [Mass/Vol] 10.0 g/dL Low 11.7 - 16.0 g/dL [facility] Interpretation and review of laboratory results Abnormal [facility] Lymphocytes (Bld) [#/Vol] 0.8 10*3/uL Low 1.0 - 4.3 10*3/uL [facility] Lymphocytes/100 WBC (Bld) 15.3 % Low 20.0 - 40.0 % [facility] MCH (RBC) [Entitic mass] 31.1 pg 26. 0 - 34.0 pg [facility] MCHC (RBC) [Mass/Vol] 32.7 % 32.0 - 36.0 % [facility] MCV (RBC) [Entitic vol] 95.1 fL 80.0 - 98.0 fL [facility] Monocytes (Bld) [#/Vol] 0.4 10*3/uL 0.0 - 0.8 10*3/uL [facility] Monocytes/100 WBC (Bld) 8.6 % 2.0 - 10.0 % [facility] Neutrophils (Bld) [#/Vol] 3.5 10*3/uL 1.8 - 7.0 10*3/uL [facility] Neutrophils/100 WBC (Bld) 68.1 % 40.0 - 80.0 % [facility] Nucleated RBC/100 WBC (Bld) [Ratio] 0.0 % [facility] Platelet mean volume (Bld) [Entitic vol] 7.3 fL Low 7.4 - 12.4 fL [facility] Platelets (Bld) [#/Vol] 178 10*3/uL 140 - 440 10*3/uL [facility] RBC (Bld) [#/Vol] 3.23 10*6/uL Low 3.8 - 5.20 10*6/uL [facility] WBC (Bld) [#/Vol] 5.1 10*3/uL 3.6 - 10.7 10*3/uL [facility] Laboratory - Microbiology an d Antimicrobial susceptibilityOrdered By: Savanna Cerrato on 02-18-2023 SARS-CoV-2 (COVID-19) Ag IA.rapid Ql (Resp) Negative Negative [facility] Comment on above: A negative result do es not rule out the possibility of SARS-CoV-2 infection. NAAT-based methods should be considered for symptomatic patients presenting greater than seven days after onset of symptoms. Method: Lateral flow immunoassay. Fact sheets for healthcare providers and patients can be found at the following sites: https://www.fda.gov/media/544245/download https://www.fda.gov/media/953447/download SARS-CoV-2 (COVID-19) Ag IA. rapid Ql (Resp)Ordered By: Savanna Cerrato on 02-18-2023 Interpretation and review of laboratory results Normal [facility] Basic metabolic 1998 panelon 02-17-2023 Anion gap [Moles/Vol] 7 mmol/L 3 - 13 mmol/L [facility] Calcium [Mass/Vol] 8.5 mg/dL 8.4 - 10. 4 mg/dL [facility] Chloride [Moles/Vol] 106 mmol/L 98 - 10 7 mmol/L [facility] CO2 [Moles/Vol] 28 mmol/L 22 - 30 mmol/L [facility] Creatinine [Mass/Vol] 0.49 mg/dL Low 0.52 - 1.04 mg/dL [facility] GFR/1.73 sq M.predicted MDRD (S/P/Bld) [Vol rate/Area] - PINF [facility] Comment on above: Calculation based on the Chronic Kidney Disease Epidemiology Collaboration (CKD-EPI) equation refit without adjustment for race Glucose [Mass/Vol] 115 mg/dL High 70 - 100 mg/dL [facility] Interpretation and review of laboratory results Abnormal [facility] Potassium [Moles/Vol] 3.7 mmol/L 3.5 - 5.1 mmol/L [facility] Sodium [Moles/Vol] 141 mmol/L 135 - 145 mmol/L [facility] Urea nitrogen [Mass/Vol] 14 mg/dL 7 - 17 mg/d L [facility] NM Bone Limited Viewson 11-3 Moderately intense tracer uptake within the L4 vertebral body, most consistent with a subacute compression fracture. Compression deformity of the L3 vertebral body seen on plain films dated 02/13/2023 demonstrates no increased tracer uptake, most consistent with remote compression fracture. Increased tracer uptake within the left femoral neck corresponds to metallic fixation hardware and sequelae of prior fracture. Punctate foci of increased tracer uptake within the anterior ribs bilaterally is consistent with nondisplaced rib fractures, age indeterminate. Report Dictated on Electronically Signed By: Raul Farmer MD Electronically Signed Date/Time: 02/17/2023 4:36 PM [facility] 1955 [id number] Exam Date/Time: 02/17/2023 10:41 Procedure: NM BONE LIMITED Ordering Provider: GRESHAM JAMES Reason For Exam: Spine fracture, thoracic, traumatic BONE SCINTIGRAPHY (LIMITED) CLINICAL INDICATION: Spine fracture, fall Delayed scintigraphic images of the thoracic and lumbar spine was performed in multiple projections following the intravenous administration of 22 mCi of technetium-99m MDP. COMPARISON: Lumbar spine plain films dated 02/13/2023. FINDINGS: There is moderately intense tracer uptake within the L4 vertebral body, most consistent with a subacute compression fracture. The compression deformity of the L3 vertebral body seen on plain films from 02/13/2023 does not demonstrate abnormal increased tracer uptake, and is most likely remote. Moderately intense tracer uptake within the mid to lower thoracic spine is most consistent with degenerative changes. There are punctate foci of increased tracer uptake within the anterior ribs bilaterally consistent with sequelae of prior trauma. Moderately increased tracer uptake within the left femoral neck corresponds to metallic fixation hardware noted on plain films of the lumbar spine. [facility] Raul Farmer MD - 02/17/2023 [facility] Name: [facility]ONZALO [facility]CA : 1955 [id number] Exam Date/Time: 02/17/2023 10:41 Procedure: NM BONE LIMITED Ordering Provider: GRESHMA JAMES Reason For Exam: Spine fracture, thoracic, traumatic BONE SCINTIGRAPHY (LIMITED) CLINICAL INDICATION: Spine fracture, fall Delayed scintigraphic images of the thoracic and lumbar spine was performed in multiple projections following the intravenous administration of 22 mCi of technetium-99m MDP. COMPARISON: Lumbar spine plain films dated 02/13/2023. FINDINGS: There is moderately intense tracer uptake within the L4 vertebral body, most consistent with a subacute compression fracture. The compression deformity of the L3 vertebral body seen on plain films from 02/13/2023 does not demonstrate abnormal increased tracer uptake, and is most likely remote. Moderately intense tracer uptake within the mid to lower thoracic spine is most consistent with degenerative changes. There are punctate foci of increased tracer uptake within the anterior ribs bilaterally consistent with sequelae of prior trauma. Moderately increased tracer uptake within the left femoral neck corresponds to metallic fixation hardware noted on plain films of the lumbar spine. IMPRESSION: Moderately intense tracer uptake within the L4 vertebral body, most consistent with a subacute compression fracture. Compression deformity of the L3 vertebral body seen on plain films dated 02/13/2023 demonstrates no increased tracer uptake, most consistent with remote compression fracture. Increased tracer uptake within the left femoral neck corresponds to metallic fixation hardware and sequelae of prior fracture. Punctate foci of increased tracer uptake within the anterior ribs bilaterally is consistent with nondisplaced rib fractures, age indeterminate. Report Dictated on Electronically Signed By: Raul Farmer MD Electronically Signed Date/Time: 02/17/2023 4:36 PM EST [facility] Radiology Study observation (narrative) [facility] NM Bone Limited ViewsOrdered By: Raul Farmer on 02-17-2023 [facility] Basic metabolic 1998 panelon 02-16-2023 Anion gap [Moles/Vol] 2 mmol/L Low 3 - 13 mmol/L [facility] Calcium [Mass/Vol] 8.3 mg/dL Low 8.4 - 10. 4 mg/dL [facility] Chloride [Moles/Vol] 105 mmol/L 98 - 10 7 mmol/L [facility] CO2 [Moles/Vol] 32 mmol/L High 22 - 30 mmol/L [facility] Creatinine [Mass/Vol] 0.58 mg/dL 0.52 - 1.04 mg/dL [facility] GFR/1.73 sq M.predicted MDRD (S/P/Bld) [Vol rate/Area] - PINF [facility] Comment on above: Calculation based on the Chronic Kidney Disease Epidemiology Collaboration (CKD-EPI) equation refit without adjustment for race Glucose [Mass/Vol] 117 mg/dL High 70 - 100 mg/dL [facility] Interpretation and review of laboratory results Abnormal [facility] Potassium [Moles/Vol] 3.3 mmol/L Low 3.5 - 5.1 mmol/L [facility] Sodium [Moles/Vol] 139 mmol/L 135 - 145 mmol/L [facility] Urea nitrogen [Mass/Vol] 16 mg/dL 7 - 17 mg/d L [facility] Laboratory - Chemistry and C hemistry - challengeon 02-16-2023 Magnesium [Mass/Vol] 1.9 mg/dL 1.6 - 2 .3 mg/dL [facility] Magnesium [Mass/Vol]on 02-16 Interpretation and review of laboratory results Normal [facility] Basic metabolic 1998 panelon 02-15-2023 Anion gap [Moles/Vol] 6 mmol/L 3 - 13 mmol/L [facility] Calcium [Mass/Vol] 8.4 mg/dL 8.4 - 10. 4 mg/dL [facility] Chloride [Moles/Vol] 104 mmol/L 98 - 10 7 mmol/L [facility] CO2 [Moles/Vol] 28 mmol/L 22 - 30 mmol/L [facility] Creatinine [Mass/Vol] 0.52 mg/dL 0.52 - 1.04 mg/dL [facility] GFR/1.73 sq M.predicted MDRD (S/P/Bld) [Vol rate/Area] - PINF [facility] Comment on above: Calculation based on the Chronic Kidney Disease Epidemiology Collaboration (CKD-EPI) equation refit without adjustment for race Glucose [Mass/Vol] 91 mg/dL 70 - 100 mg/dL [facility] Interpretation and review of laboratory results Abnormal [facility] Potassium [Moles/Vol] 3.2 mmol/L Low 3.5 - 5.1 mmol/L [facility] Sodium [Moles/Vol] 138 mmol/L 135 - 145 mmol/L [facility] Urea nitrogen [Mass/Vol] 15 mg/dL 7 - 17 mg/d L [facility] CBC panel Auto (Bld)Ordered By: Rosa Ruiz on 02-15-2023 Erythrocyte distribution width (RBC) [Ratio] 13.8 % 11.5 - 14.5 % [facility] Hematocrit (Bld) [Volume fraction] 31.2 % Low 35.0 - 47.0 % [facility] Hemoglobin (Bld) [Mass/Vol] 10.6 g/dL Low 11.7 - 16.0 g/dL [facility] Interpretation and review of laboratory results Abnormal [facility] MCH (RBC) [Entitic mass] 31.5 pg 26. 0 - 34.0 pg [facility] MCHC (RBC) [Mass/Vol] 33.9 % 32.0 - 36.0 % [facility] MCV (RBC) [Entitic vol] 92.9 fL 80.0 - 98.0 fL [facility] Platelet mean volume (Bld) [Entitic vol] 7.7 fL 7.4 - 12.4 fL [facility] Platelets (Bld) [#/Vol] 163 10*3/uL 140 - 440 10*3/uL [facility] RBC (Bld) [#/Vol] 3.36 10*6/uL Low 3.8 - 5.20 10*6/uL [facility] WBC (Bld) [#/Vol] 5.2 10*3/uL 3.6 - 10.7 10*3/uL [facility] Laboratory - Chemistry and C hemistry - challengeon 02-15-2023 Magnesium [Mass/Vol] 1.9 mg/dL 1.6 - 2 .3 mg/dL [facility] Magnesium [Mass/Vol]on 02-15 Interpretation and review of laboratory results Normal [facility] 25-hydroxyvitamin D3 [Mass/V ol]on 02-14-2023 Interpretation and review of laboratory results Normal [facility] Therapy is based on measurement of Total 25-OHD with the following classification levels: Less than 20 ng/mL: Indicative of Vit D deficiency 20-30 ng/mL: Suggests Vit D insufficiency Optimal: Greater than or equal to 30 ng/mL Test performed by [employer] Competitive Immunoassay, measuring Total Vitamin D, not individual fractions. [facility] Laboratory - Chemistry and C hemistry - challengeon 02-14-2023 25-hydroxyvitamin D3 [Mass/Vol] 37 ng/mL 30 - 100 ng/mL [facility] Basic metabolic 1998 panelon 02-13-2023 Anion gap [Moles/Vol] 7 mmol/L 3 - 13 mmol/L [facility] Calcium [Mass/Vol] 9.1 mg/dL 8.4 - 10. 4 mg/dL [facility] Chloride [Moles/Vol] 98 mmol/L 98 - 10 7 mmol/L [facility] CO2 [Moles/Vol] 32 mmol/L High 22 - 30 mmol/L [facility] Creatinine [Mass/Vol] 0.50 mg/dL Low 0.52 - 1.04 mg/dL [facility] GFR/1.73 sq M.predicted MDRD (S/P/Bld) [Vol rate/Area] - PINF [facility] Comment on above: Calculation based on the Chronic Kidney Disease Epidemiology Collaboration (CKD-EPI) equation refit without adjustment for race Glucose [Mass/Vol] 96 mg/dL 70 - 100 mg/dL [facility] Interpretation and review of laboratory results Abnormal [facility] Potassium [Moles/Vol] 3.7 mmol/L 3.5 - 5.1 mmol/L [facility] Sodium [Moles/Vol] 137 mmol/L 135 - 145 mmol/L [facility] Urea nitrogen [Mass/Vol] 13 mg/dL 7 - 17 mg/d L [facility] CBC W Auto Differential pane l (Bld)Ordered By: Kina Valverde on 02-13-2023 Basophils (Bld) [#/Vol] 0.0 10*3/uL 0.0 - 0.2 10*3/uL [facility] Basophils/100 WBC (Bld) 0.3 % 0.0 - 2.0 % [facility] Eosinophils (Bld) [#/Vol] 0.1 10*3/uL 0.0 - 0.5 10*3/uL [facility] Eosinophils/100 WBC (Bld) 0.9 % Low 1.0 - 6.0 % [facility] Erythrocyte distribution width (RBC) [Ratio] 13.8 % 11.5 - 14.5 % [facility] Hematocrit (Bld) [Volume fraction] 36.2 % 35.0 - 47.0 % [facility] Hemoglobin (Bld) [Mass/Vol] 11.9 g/dL 11.7 - 16.0 g/dL [facility] Interpretation and review of laboratory results Abnormal [facility] Lymphocytes (Bld) [#/Vol] 0.7 10*3/uL Low 1.0 - 4.3 10*3/uL [facility] Lymphocytes/100 WBC (Bld) 6.4 % Low 20.0 - 40.0 % [facility] MCH (RBC) [Entitic mass] 30.7 pg 26. 0 - 34.0 pg [facility] MCHC (RBC) [Mass/Vol] 32.7 % 32.0 - 36.0 % [facility] MCV (RBC) [Entitic vol] 93.9 fL 80.0 - 98.0 fL [facility] Monocytes (Bld) [#/Vol] 0.4 10*3/uL 0.0 - 0.8 10*3/uL [facility] Monocytes/100 WBC (Bld) 3.7 % 2.0 - 10.0 % [facility] Neutrophils (Bld) [#/Vol] 9.9 10*3/uL High 1.8 - 7.0 10*3/uL [facility] Neutrophils/100 WBC (Bld) 88.7 % High 40.0 - 80.0 % [facility] Nucleated RBC/100 WBC (Bld) [Ratio] 0.0 % [facility] mean volume (Bld) [Entitic vol] 7.3 fL Low 7.4 - 12.4 fL [facility] Platelets (Bld) [#/Vol] 212 10*3/uL 140 - 440 10*3/uL [facility] RBC (Bld) [#/Vol] 3.86 10*6/uL 3.8 - 5.20 10*6/uL [facility] WBC (Bld) [#/Vol] 11.1 10*3/uL High 3.6 - 10.7 10*3/uL [facility] [facility] XR Lumbar spine 2 or 3 Views on 02-13-2023 1. Multilevel, possible insufficiency compressive changes in the L2-L4 levels, mild and new in the L2 and L4 levels and moderate in the L3 level, similar to comparison. No other, acute osseous abnormality. 2. Degenerative change. Report Dictated on Electronically Signed By: Gianni Avila MD Electronically Signed Date/Time: 02/13/2023 8:25 PM EST [place] Patient Name: GONZALO DELUCA : 1955 Exam Date/Time: 02/13/2023 20:15 Procedure: XR LUMBAR SPINE 2-3 VIEWS Ordering Provider: OROZCO SCOTT Reason For Exam: TRAUMA LUMBAR SPINE 3 VIEWS CLINICAL INDICATION: TRAUMA TECHNIQUE: 3 views of the lumbar spine. COMPARISON: September,. FINDINGS: Diffuse osteopenia. Moderate compressive change in L3 superior endplate, about the same. Mild superior endplate concavities in L2 and L4 levels, new from comparison, but without cortical buckling. Fixation screws partially visualized in left femoral head-neck. No acute loss of height or gross malalignment of vertebral bodies. No osseous destruction. Degenerative changes, most pronounced in the L5-S1 level, including vacuum disc formation, about the same. Moderate facet arthrosis in mid-lower lumbar spine, also similar. Paraspinal soft tissues grossly unremarkable. [place] Gianni Avila MD - 02/13/2023 Patient Name: GONZALO DELUCA DOB: 1955 Exam Date/Time: 02/13/2023 20:15 Procedure: XR LUMBAR SPINE 2-3 VIEWS Ordering Provider: OROZCO SCOTT Reason For Exam: TRAUMA LUMBAR SPINE 3 VIEWS CLINICAL INDICATION: TRAUMA TECHNIQUE: 3 views of the lumbar spine. COMPARISON: September,. FINDINGS: Diffuse osteopenia. Moderate compressive change in L3 superior endplate, about the same. Mild superior endplate concavities in L2 and L4 levels, new from comparison, but without cortical buckling. Fixation screws partially visualized in left femoral head-neck. No acute loss of height or gross malalignment of vertebral bodies. No osseous destruction. Degenerative changes, most pronounced in the L5-S1 level, including vacuum disc formation, about the same. Moderate facet arthrosis in mid-lower lumbar spine, also similar. Paraspinal soft tissues grossly unremarkable. IMPRESSION: 1. Multilevel, possible insufficiency compressive changes in the L2-L4 levels, mild and new in the L2 and L4 levels and moderate in the L3 level, similar to comparison. No other, acute osseous abnormality. 2. Degenerative change. Report Dictated on Electronically Signed By: Gianni Avila MD Electronically Signed Date/Time: 02/13/2023 8:25 PM [facility] Radiology Study observation (narrative) [facility] XR Shoulder - left 2 Viewson 02-13-2023 1. No acute osseous abnormality. 2. Remote posttraumatic and mild degenerative change. Report Dictated on Electronically Signed By: Gianni Avila MD Electronically Signed Date/Time: 02/13/2023 8:17 PM [facility] Patient Name: GONZALO DELUCA : 1955 Exam Date/Time: 02/13/2023 20:13 Procedure: XR SHOULDER 2+ VIEWS LEFT Ordering Provider: OROZCO SCOTT Reason For Exam: TRAUMA LEFT SHOULDER 3 VIEWS CLINICAL INDICATION: TRAUMA TECHNIQUE: 3 views of the left shoulder. COMPARISON: Left shoulder radiographs, January,; portable chest x-ray, 3 March, 2023. FINDINGS: Diffuse osteopenia. No acute fracture or dislocation. Subacute or chronic fracture deformity in the distal clavicle, new from comparison chest x-ray. Mild degenerative change in the glenohumeral and AC joints. Soft tissues grossly unremarkable. Left-sided portacatheter again noted. [facility] Gianni Avila MD - 02/13/2023 [facility] 1955 [id number] Exam Date/Time: 02/13/2023 20:13 Procedure: XR SHOULDER 2+ VIEWS LEFT Ordering Provider: OROZCO SCOTT Reason For Exam: TRAUMA LEFT SHOULDER 3 VIEWS CLINICAL INDICATION: TRAUMA TECHNIQUE: 3 views of the left shoulder. COMPARISON: Left shoulder radiographs, January,; portable chest x-ray, May,. FINDINGS: Diffuse osteopenia. No acute fracture or dislocation. Subacute or chronic fracture deformity in the distal clavicle, new from comparison chest x-ray. Mild degenerative change in the glenohumeral and AC joints. Soft tissues grossly unremarkable. Left-sided portacatheter again noted. IMPRESSION: 1. No acute osseous abnormality. 2. Remote posttraumatic and mild degenerative change. Report Dictated on Electronically Signed By: Gianni Avila MD Electronically Signed Date/Time: 02/13/2023 8:17 PM EST [facility] Radiology Study observation (narrative) [facility] XR Shoulder - left 2 ViewsOr dered By: Gianni Avila on 02-13-2023 [facility] Work Phone: Basic metabolic 1998 panelon 11-08-2022 Anion gap [Moles/Vol] 3 mmol/L 3 - 13 mmol/L [facility] Calcium [Mass/Vol] 8.1 mg/dL Low 8.4 - 10. 4 mg/dL [facility] Chloride [Moles/Vol] 105 mmol/L 98 - 10 7 mmol/L [facility] CO2 [Moles/Vol] 27 mmol/L 22 - 30 mmol/L [facility] Creatinine [Mass/Vol] 0.65 mg/dL 0.52 - 1.04 mg/dL [facility] GFR/1.73 sq M.predicted MDRD (S/P/Bld) [Vol rate/Area] - PINF [facility] Comment on above: Calculation based on the Chronic Kidney Disease Epidemiology Collaboration (CKD-EPI) equation refit without adjustment for race Glucose [Mass/Vol] 142 mg/dL High 70 - 100 mg/dL [facility] Interpretation and review of laboratory results Abnormal [facility] Potassium [Moles/Vol] 4.1 mmol/L 3.5 - 5.1 mmol/L [facility] Sodium [Moles/Vol] 136 mmol/L 135 - 145 mmol/L [facility] Urea nitrogen [Mass/Vol] 19 mg/dL High 7 - 17 mg/d L [facility] CBC W Auto Differential pane l (Bld)Ordered By: Rolando Shelton on 11-08-2022 Basophils (Bld) [#/Vol] 0.1 10*3/uL 0.0 - 0.2 10*3/uL [facility] Basophils/100 WBC (Bld) 0.7 % 0.0 - 2.0 % [facility] Eosinophils (Bld) [#/Vol] 0.0 10*3/uL 0.0 - 0.5 10*3/uL [facility] Eosinophils/100 WBC (Bld) 0.0 % Low 1.0 - 6.0 % [facility] Erythrocyte distribution width (RBC) [Ratio] 14.7 % High 11.5 - 14.5 % [facility] Hematocrit (Bld) [Volume fraction] 29.9 % Low 35.0 - 47.0 % [facility] Hemoglobin (Bld) [Mass/Vol] 10.3 g/dL Low 11.7 - 16.0 g/dL [facility] Interpretation and review of laboratory results Abnormal [facility] Lymphocytes (Bld) [#/Vol] 0.5 10*3/uL Low 1.0 - 4.3 10*3/uL [facility] Lymphocytes/100 WBC (Bld) 5.5 % Low 20.0 - 40.0 % [facility] MCH (RBC) [Entitic mass] 32.0 pg 26. 0 - 34.0 pg [facility] MCHC (RBC) [Mass/Vol] 34.5 % 32.0 - 36.0 % [facility] MCV (RBC) [Entitic vol] 92.8 fL 80.0 - 98.[address] [facility] Monocytes (Bld) [#/Vol] 0.6 10*3/uL 0.0 - 0.8 10*3/uL [facility] Monocytes/100 WBC (Bld) 6.8 % 2.0 - 10.0 % [facility] Neutrophils (Bld) [#/Vol] 7.9 10*3/uL High 1.8 - 7.0 10*3/uL [facility] Neutrophils/100 WBC (Bld) 87.0 % High 40.0 - 80.0 % [facility] Nucleated RBC/100 WBC (Bld) [Ratio] 0.0 % [facility] Platelet mean volume (Bld) [Entitic vol] 7.6 fL 7.4 - 12.4 fL [facility] Platelets (Bld) [#/Vol] 182 10*3/uL 140 - 440 10*3/uL [facility] RBC (Bld) [#/Vol] 3.23 10*6/uL Low 3.8 - 5.20 10*6/uL [facility] WBC (Bld) [#/Vol] 9.1 10*3/uL 3.6 - 10.7 10*3/uL [facility] Basic metabolic 1998 panelon 11-07-2022 Anion gap [Moles/Vol] 0 mmol/L Low 3 - 13 mmol/L [facility] Calcium [Mass/Vol] 8.3 mg/dL Low 8.4 - 10. 4 mg/dL [facility] Chloride [Moles/Vol] 106 mmol/L 98 - 10 7 mmol/L [facility] CO2 [Moles/Vol] 29 mmol/L 22 - 30 mmol/L [facility] Creatinine [Mass/Vol] 0.71 mg/dL 0.52 - 1.04 mg/dL [facility] GFR/1.73 sq M.predicted MDRD (S/P/Bld) [Vol rate/Area] - PINF [facility] Comment on above: Calculation based on the Chronic Kidney Disease Epidemiology Collaboration (CKD-EPI) equation refit without adjustment for race Glucose [Mass/Vol] 96 mg/dL 70 - 100 mg/dL [facility] Interpretation and review of laboratory results Abnormal [facility] Potassium [Moles/Vol] 3.8 mmol/L 3.5 - 5.1 mmol/L [facility] Sodium [Moles/Vol] 135 mmol/L 135 - 145 mmol/L [facility] Urea nitrogen [Mass/Vol] 14 mg/dL 7 - 17 mg/d L [facility] Slightly Hemolyzed [facility] CBC W Auto Differential pane l (Bld)Ordered By: Hakeem Cruz on 11-07-2022 Basophils (Bld) [#/Vol] 0.0 10*3/uL 0.0 - 0.2 10*3/uL [facility] Basophils/100 WBC (Bld) 0.4 % 0.0 - 2.0 % [facility] Eosinophils (Bld) [#/Vol] 0.5 10*3/uL 0.0 - 0.5 10*3/uL [facility] Eosinophils/100 WBC (Bld) 7.5 % High 1.0 - 6.0 % [facility] Erythrocyte distribution width (RBC) [Ratio] 14.8 % High 11.5 - 14.5 % [facility] Hematocrit (Bld) [Volume fraction] 33.8 % Low 35.0 - 47.0 % [facility] Hemoglobin (Bld) [Mass/Vol] 11.2 g/dL Low 11.7 - 16.0 g/dL [facility] Interpretation and review of laboratory results Abnormal [facility] Lymphocytes (Bld) [#/Vol] 0.7 10*3/uL Low 1.0 - 4.3 10*3/uL [facility] Lymphocytes/100 WBC (Bld) 12.2 % Low 20.0 - 40.0 % [facility] MCH (RBC) [Entitic mass] 31.0 pg 26. 0 - 34.0 pg [facility] MCHC (RBC) [Mass/Vol] 33.3 % 32.0 - 36.0 % [facility] MCV (RBC) [Entitic vol] 93.0 fL 80.0 - 98.0 fL [facility] Monocytes (Bld) [#/Vol] 0.5 10*3/uL 0.0 - 0.8 10*3/uL [facility] Monocytes/100 WBC (Bld) 7.5 % 2.0 - 10.0 % [facility] Neutrophils (Bld) [#/Vol] 4.4 10*3/uL 1.8 - 7.0 10*3/uL [facility] Neutrophils/100 WBC (Bld) 72.4 % 40.0 - 80.0 % [facility] Nucleated RBC/100 WBC (Bld) [Ratio] 0.0 % [facility] Platelet mean volume (Bld) [Entitic vol] 7.0 fL Low 7.4 - 12.[address] [facility] Platelets (Bld) [#/Vol] 213 10*3/uL 140 - 440 10*3/uL [facility] RBC (Bld) [#/Vol] 3.63 10*6/uL Low 3.8 - 5.20 10*6/uL [facility] WBC (Bld) [#/Vol] 6.0 10*3/uL 3.6 - 10.7 10*3/uL [facility] No Panel Informationon 11-07 There is no interpretation needed for this exam. IMAGING Sinus rhythm Inferior infarct, old Electronically Signed On 11-07-2022 1:11:05 EDT by Melva Hull CV Melva Albrecht, - 11/07/2022 IMPRESSION: Sinus rhythm Inferior infarct, old Electronically Signed On 11-07-2022 1:11:05 EDT by Melva Hull [facility] No Panel InformationOrdered By: Melva Hull on 11-07-[address] [place] [address] [facility] Work Phone: MI Interval [address] [facility] Work Phone: QRS [place] -[address] [facility] Work Phone: QRSD Interval [address] [facility] Work Phone: QT Interval [address] [facility] Work Phone: QTC Interval [address] [facility] Work Phone: T Wave [place] -[address] [facility] Work Phone: [facility] Work Phone: Urinalysis complete panel (U )on 11-07-2022 Bilirubin Ql (U) Negative Negative mg/dL [facility] Clarity (U) Clear Clear [facility] Color (U) Yellow Lt. Yellow [facility] Glucose Ql (U) Normal Normal (<70) mg/dL [facility] Hemoglobin Ql (U) Negative Negative mg/dL [facility] Interpretation and review of laboratory results Normal [facility] Ketones (U) [Mass/Vol] Negative Negat kenton mg/dL [facility] Leukocyte esterase Test strip Ql (U) Negative Negative Sandra/uL [facility] Nitrite Ql (U) Negative Negative [facility] th pH (U) 6.5 [pH] 5.0 - 8.0 pH [facility] Protein (U) [Mass/Vol] Negative Negat kenton mg/dL [facility] Specific gravity (U) [Rel density] 1.025 1.005 - 1.030 [facility] Urobilinogen (U) [Mass/Vol] Normal Normal (0-1) mg/dL [facility] Vital signsOrdered By: Celio Hull on 11-07-2022 Heart rate 121 /min bpm [facility] Work Phone: Basic metabolic 1998 panelon 11-06-2022 Anion gap [Moles/Vol] 2 mmol/L Low 3 - 13 mmol/L [facility] Calcium [Mass/Vol] 8.4 mg/dL 8.4 - 10. 4 mg/dL [facility] Chloride [Moles/Vol] 105 mmol/L 98 - 10 7 mmol/L [facility] CO2 [Moles/Vol] 30 mmol/L 22 - 30 mmol/L [facility] Creatinine [Mass/Vol] 0.66 mg/dL 0.52 - 1.04 mg/dL [facility] GFR/1.73 sq M.predicted MDRD (S/P/Bld) [Vol rate/Area] - PINF [facility] Comment on above: Calculation based on the Chronic Kidney Disease Epidemiology Collaboration (CKD-EPI) equation refit without adjustment for race Glucose [Mass/Vol] 99 mg/dL 70 - 100 mg/dL [facility] Interpretation and review of laboratory results Abnormal [facility] Potassium [Moles/Vol] 3.5 mmol/L 3.5 - 5.1 mmol/L [facility] Sodium [Moles/Vol] 137 mmol/L 135 - 145 mmol/L [facility] Urea nitrogen [Mass/Vol] 12 mg/dL 7 - 17 mg/d L [facility] CBC panel Auto (Bld)Ordered By: Desiree Ho on 11-06-2022 Erythrocyte distribution width (RBC) [Ratio] 14.9 % High 11.5 - 14.5 % [facility] Hematocrit (Bld) [Volume fraction] 36.4 % 35.0 - 47.0 % [facility] Hemoglobin (Bld) [Mass/Vol] 12.1 g/dL 11.7 - 16.0 g/dL [facility] Interpretation and review of laboratory results Abnormal [facility] MCH (RBC) [Entitic mass] 31.0 pg 26. 0 - 34.0 pg [facility] MCHC (RBC) [Mass/Vol] 33.3 % 32.0 - 36.0 % [facility] MCV (RBC) [Entitic vol] 93.2 fL 80.0 - 98.0 fL [facility] Platelet mean volume (Bld) [Entitic vol] 7.2 fL Low 7.4 - 12.4 fL [facility] Platelets (Bld) [#/Vol] 238 10*3/uL 140 - 440 10*3/uL [facility] RBC (Bld) [#/Vol] 3.91 10*6/uL 3.8 - 5.20 10*6/uL [facility] WBC (Bld) [#/Vol] 10.3 10*3/uL 3.6 - 10.7 10*3/uL [facility] No Panel Informationon 11-06 Radiology Study observation (narrative) [facility] XR Hand - right 3 Viewson No fracture or acute osseous injury. Report Dictated on Electronically Signed By: Ankit Tripathi MD Electronically Signed Date/Time: 11/06/2022 2:14 PM [facility] Patient Name: GONZALO DELUCA : 1955 Exam Date/Time: 11/06/2022 14:20 Procedure: XR HAND 3+ VIEWS RIGHT Ordering Provider: MCCANN JOSEPH Reason For Exam: Hand trauma, fracture suspected, nondiagnostic xray Right hand CLINICAL INDICATION: Pain TECHNIQUE: Three views of the right hand COMPARISON: None FINDINGS: No cortical or trabecular irregularity to suggest a fracture. Bones appear in grossly normal anatomic alignment. The soft tissues are within normal limits. 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 Otherwise no significant productive or erosive arthropathy. [facility] Ankit Tripathi MD - 11/06/2022 Patient Name: GONZALO DELUCA : 1955 Exam Date/Time: 11/06/2022 14:20 Procedure: XR HAND 3+ VIEWS RIGHT Ordering Provider: MCCANN JOSEPH Reason For Exam: Hand trauma, fracture suspected, nondiagnostic xray Right hand CLINICAL INDICATION: Pain TECHNIQUE: Three views of the right hand COMPARISON: None FINDINGS: No cortical or trabecular irregularity to suggest a fracture. Bones appear in grossly normal anatomic alignment. The soft tissues are within normal limits. 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 Otherwise no significant productive or erosive arthropathy. IMPRESSION: No fracture or acute osseous injury. Report Dictated on Electronically Signed By: Ankit Tripathi MD Electronically Signed Date/Time: 11/06/2022 2:14 PM EDT [facility] XR Hip - left 3 Viewson 10-19 Impression: Intertrochanteric left hip fracture, with foreshortening of the fracture fragments. Report Dictated on Electronically Signed By: Ankit Tripathi MD Electronically Signed Date/Time: 11/06/2022 2:28 PM EDT [facility] Patient Name: GONZALO DELUCA : 1955 Exam Date/Time: 11/06/2022 14:18 Procedure: XR HIP 2 OR 3 VW LEFT Ordering Provider: MCCANN JOSEPH Reason For Exam: Hip trauma, fracture suspected, no prior imaging Examination: Left hip Clinical Indication: Pain Comparison: 05/21/2022 Findings: Left hip: AP view of the pelvis along with AP and lateral views of the left hip. Intertrochanteric left hip fracture, with foreshortening of the fracture fragments. The femoral head remains seated within the acetabulum. Right hip and pelvis: No fracture, diastases/dislocation or osseous necrosis. Intact sacroiliac joints without evidence of erosion or widening. Normal osseous mineralization. [facility] Ankit Tripathi MD - 11/06/2022 Patient Name: GONZALO DELUCA : 1955 Exam Date/Time: 11/06/2022 14:18 Procedure: XR HIP 2 OR 3 VW LEFT Ordering Provider: MCCANN JOSEPH Reason For Exam: Hip trauma, fracture suspected, no prior imaging Examination: Left hip Clinical Indication: Pain Comparison: 05/21/2022 Findings: Left hip: AP view of the pelvis along with AP and lateral views of the left hip. Intertrochanteric left hip fracture, with foreshortening of the fracture fragments. The femoral head remains seated within the acetabulum. Right hip and pelvis: No fracture, diastases/dislocation or osseous necrosis. Intact sacroiliac joints without evidence of erosion or widening. Normal osseous mineralization. IMPRESSION: Impression: Intertrochanteric left hip fracture, with foreshortening of the fracture fragments. Report Dictated on Electronically Signed By: Ankit Tripathi MD Electronically Signed Date/Time: 11/06/2022 2:28 PM EDT [facility] XR Ribs - left 2 Viewson 1. No acute cardiopulmonary disease. 2. Pulmonary hyperinflation. 3. Normal ribs. Report Dictated on Electronically Signed By: Ankit Tripathi MD Electronically Signed Date/Time: 11/06/2022 2:26 PM EDT [facility] Patient Name: GONZALO DELUCA : 1955 Exam Date/Time: 11/06/2022 14:18 Procedure: XR RIBS 2 VIEWS LEFT Ordering Provider: MCCANN JOSEPH Reason For Exam: Rib pain, fx suspected RIGHT RIBS AND CHEST CLINICAL INDICATION: Pain. TECHNIQUE: Three views were obtained COMPARISON: Correlation with chest radiograph May 21, 2022. FINDINGS: Stable appearance/location of the left-sided chest [id number] line. The cardiac and mediastinal silhouettes are unremarkable. The hyperinflated lungs demonstrate no consolidation or area of atelectasis. The costophrenic angles are sharp. No pneumothorax is noted. The ribs demonstrate no evidence for fracture or bone lesion. [facility] Ankit Tripathi MD - 11/06/2022 Patient Name: GONZALO DELUCA : 1955 [facility]#: [id number] Exam Date/Time: 11/06/2022 14:18 Procedure: XR RIBS 2 VIEWS LEFT Ordering Provider: MCCANN JOSEPH Reason For Exam: Rib pain, fx suspected RIGHT RIBS AND CHEST CLINICAL INDICATION: Pain. TECHNIQUE: Three views were obtained COMPARISON: Correlation with chest radiograph May 21, 2022. FINDINGS: Stable appearance/location of the left-sided chest [id number] line. The cardiac and mediastinal silhouettes are unremarkable. The hyperinflated lungs demonstrate no consolidation or area of atelectasis. The costophrenic angles are sharp. No pneumothorax is noted. The ribs demonstrate no evidence for fracture or bone lesion. IMPRESSION: 1. No acute cardiopulmonary disease. 2. Pulmonary hyperinflation. 3. Normal ribs. Report Dictated on Electronically Signed By: Ankit Tripathi MD Electronically Signed Date/Time: 11/06/2022 2:26 PM EDT [facility] Radiology Study observation (narrative) [facility] XR Ribs - left 2 ViewsOrdere d By: Ankit Tripathi on 11-06-2022 [facility] Work Phone: CBC W Auto Differential pane l (Bld)on 09-15-2022 Basophils (Bld) [#/Vol] 0.05 10*3/uL <0.11 k/uL [facility] Basophils/100 WBC (Bld) 0.5 % C [facility] Differential cell count method Nom (Bld) Auto [facility] Eosinophils (Bld) [#/Vol] 0.49 10*3/uL High <0.46 k/uL [facility] Eosinophils/100 WBC (Bld) 5.0 % [facility] Erythrocyte distribution width (RBC) [Ratio] 14.9 % 11.5 - 15.0 % [facility] Hematocrit (Bld) [Volume fraction] 39.3 % 36.0 - 46.0 % [facility] Hemoglobin (Bld) [Mass/Vol] 12.1 g/dL 11.5 - 15.5 g/dL [facility] Immature granulocytes (Bld) [#/Vol] 0.04 10*3/uL <0.10 k/uL [facility] Immature granulocytes/100 WBC (Bld) 0.4 % [facility] Lymphocytes (Bld) [#/Vol] 0.94 10*3/uL Low 1.00 - 4.00 k/uL [facility] Lymphocytes/100 WBC (Bld) 9.7 % [facility] MCH (RBC) [Entitic mass] 30.2 pg 26. 0 - 34.0 pg [facility] MCHC (RBC) [Mass/Vol] 30.8 g/dL 30.5 - 36.0 g/dL [facility] MCV (RBC) [Entitic vol] 98.0 fL 80.0 - 100.0 fL [facility] Monocytes (Bld) [#/Vol] 0.73 10*3/uL <0.87 k/uL [facility] Monocytes/100 WBC (Bld) 7.5 % C [facility] Neutrophils (Bld) [#/Vol] 7.47 10*3/uL 1.45 - 7.50 k/uL [facility] Neutrophils/100 WBC (Bld) 76.9 % [facility] Nucleated RBC (Bld) [#/Vol] <0.01 k/uL [facility] Nucleated RBC/100 WBC (Bld) [Ratio] 0.0 /100 WBC [facility] Platelet mean volume (Bld) [Entitic vol] 9.3 fL 9.0 - 12.7 fL [facility] Platelets (Bld) [#/Vol] 349 10*3/uL 150 - 400 k/uL [facility] RBC (Bld) [#/Vol] 4.01 10*6/uL 3.90 - 5.2 0 m/uL [facility] WBC (Bld) [#/Vol] 9.72 10*3/uL 3.70 - 11. 00 k/uL [facility] Comprehensive metabolic 2000 panelon 09-15-2022 Albumin [Mass/Vol] 4.0 g/dL 3.9 - 4.9 g/dL [facility] ALP [Catalytic activity/Vol] 148 U/L High 34 - 123 U/L [facility] ALT [Catalytic activity/Vol] 12 U/L 7 - 38 U/L [facility] Anion gap [Moles/Vol] 11 mmol/L 9 - 18 mmol/L [facility] AST [Catalytic activity/Vol] 17 U/L 13 - 35 U/L [facility] Bilirubin [Mass/Vol] 0.4 mg/dL 0.2 - 1 .3 mg/dL [facility] Calcium [Mass/Vol] 9.8 mg/dL 8.5 - 10. 2 mg/dL [facility] Chloride [Moles/Vol] 103 mmol/L 97 - 10 5 mmol/L [facility] CO2 [Moles/Vol] 28 mmol/L 22 - 30 mmol/L [facility] Creatinine [Mass/Vol] 0.64 mg/dL 0.58 - 0.96 mg/dL [facility] Estimated Glomerular Filtration Rate 98 mL/min/1.73m >=60 mL/min/1.73m [facility] Glucose [Mass/Vol] 84 mg/dL 74 - 99 mg/dL [facility] Potassium [Moles/Vol] 4.4 mmol/L 3.7 - 5.1 mmol/L [facility] Protein [Mass/Vol] 7.3 g/dL 6.3 - 8.0 g/dL [facility] Sodium [Moles/Vol] 142 mmol/L 136 - 144 mmol/L [facility] Urea nitrogen [Mass/Vol] 15 mg/dL 7 - 21 mg/d L [facility] Lipid 1996 panelon 3 Cholesterol [Mass/Vol] 169 mg/dL <200 mg/dL [facility] Cholesterol in HDL [Mass/Vol] 54 mg/dL >39 mg/dL [facility] Cholesterol in LDL [Mass/Vol] 85 mg/dL <100 mg/dL [facility] Cholesterol in LDL/Cholesterol in HDL [Mass ratio] 1.57 {ratio} <2.54 [facility] Cholesterol in VLDL [Mass/Vol] 30 mg/dL High <30 mg/dL [facility] Cholesterol non HDL [Mass/Vol] 115 mg/dL <130 mg/dL [facility] Cholesterol.total/Choles terol in HDL [Mass ratio] 3.13 {ratio} <5.10 [facility] Fasting Time 10 hrs [facility] Triglyceride [Mass/Vol] 150 mg/dL High <150 mg/dL C [facility] Basic metabolic 1998 panelon 05-24-2022 Anion gap [Moles/Vol] 3 mmol/L 3 - 13 mmol/L [facility] Calcium [Mass/Vol] 8.4 mg/dL 8.4 - 10. 4 mg/dL [facility] Chloride [Moles/Vol] 106 mmol/L 98 - 10 7 mmol/L [facility] CO2 [Moles/Vol] 30 mmol/L 22 - 30 mmol/L [facility] Creatinine [Mass/Vol] 0.64 mg/dL 0.52 - 1.04 mg/dL [facility] GFR/1.73 sq M.predicted MDRD (S/P/Bld) [Vol rate/Area] - PINF [facility] Comment on above: Calculation based on the Chronic Kidney Disease Epidemiology Collaboration (CKD-EPI) equation refit without adjustment for race Glucose [Mass/Vol] 157 mg/dL High 70 - 100 mg/dL [facility] Interpretation and review of laboratory results Abnormal [facility] Potassium [Moles/Vol] 3.6 mmol/L 3.5 - 5.1 mmol/L [facility] Sodium [Moles/Vol] 139 mmol/L 135 - 145 mmol/L [facility] Urea nitrogen [Mass/Vol] 12 mg/dL 7 - 17 mg/d L [facility] CBC W Auto Differential pane l (Bld)on 05-24-2022 Basophils (Bld) [#/Vol] 0.0 10*3/uL 0.0 - 0.2 10*3/uL [facility] Basophils/100 WBC (Bld) 0.5 % 0.0 - 2.0 % [facility] Eosinophils (Bld) [#/Vol] 0.3 10*3/uL 0.0 - 0.5 10*3/uL [facility] Eosinophils/100 WBC (Bld) 3.0 % 1.0 - 6.0 % [facility] Erythrocyte distribution width (RBC) [Ratio] 13.5 % 11.5 - 14.5 % [facility] Hematocrit (Bld) [Volume fraction] 30.6 % Low 35.0 - 47.0 % [facility] Hemoglobin (Bld) [Mass/Vol] 10.0 g/dL Low 11.7 - 16.0 g/dL [facility] Interpretation and review of laboratory results Abnormal [facility] Lymphocytes (Bld) [#/Vol] 0.8 10*3/uL Low 1.0 - 4.3 10*3/uL [facility] Lymphocytes/100 WBC (Bld) 8.6 % Low 20.0 - 40.0 % [facility] MCH (RBC) [Entitic mass] 31.0 pg 26. 0 - 34.0 pg [facility] MCHC (RBC) [Mass/Vol] 32.6 % 32.0 - 36.0 % [facility] MCV (RBC) [Entitic vol] 95.1 fL 80.0 - 98.0 fL [facility] Monocytes (Bld) [#/Vol] 0.5 10*3/uL 0.0 - 0.8 10*3/uL [facility] Monocytes/100 WBC (Bld) 5.7 % 2.0 - 10.0 % [facility] Neutrophils (Bld) [#/Vol] 7.6 10*3/uL High 1.8 - 7.0 10*3/uL [facility] Neutrophils/100 WBC (Bld) 82.2 % High 40.0 - 80.0 % [facility] Nucleated RBC/100 WBC (Bld) [Ratio] 0.0 % [facility] Platelet mean volume (Bld) [Entitic vol] 7.1 fL Low 7.4 - 12.4 fL [facility] Platelets (Bld) [#/Vol] 261 10*3/uL 140 - 440 10*3/uL [facility] RBC (Bld) [#/Vol] 3.22 10*6/uL Low 3.8 - 5.20 10*6/uL [facility] WBC (Bld) [#/Vol] 9.3 10*3/uL 3.6 - 10.7 10*3/uL [facility] Basic metabolic 1998 panelon 05-23-2022 Anion gap [Moles/Vol] 2 mmol/L Low 3 - 13 mmol/L [facility] Calcium [Mass/Vol] 8.5 mg/dL 8.4 - 10. 4 mg/dL [facility] Chloride [Moles/Vol] 109 mmol/L High 98 - 10 7 mmol/L [facility] CO2 [Moles/Vol] 28 mmol/L 22 - 30 mmol/L [facility] Creatinine [Mass/Vol] 0.68 mg/dL 0.52 - 1.04 mg/dL [facility] GFR/1.73 sq M.predicted MDRD (S/P/Bld) [Vol rate/Area] - PINF [facility] Comment on above: Calculation based on the Chronic Kidney Disease Epidemiology Collaboration (CKD-EPI) equation refit without adjustment for race Glucose [Mass/Vol] 104 mg/dL High 70 - 100 mg/dL [facility] Interpretation and review of laboratory results Abnormal [facility] Potassium [Moles/Vol] 3.6 mmol/L 3.5 - 5.1 mmol/L [facility] Sodium [Moles/Vol] 138 mmol/L 135 - 145 mmol/L [facility] Urea nitrogen [Mass/Vol] 13 mg/dL 7 - 17 mg/d L [facility] CBC W Auto Differential pane l (Bld)Ordered By: Crystal Dupont on 05-23-2022 Basophils (Bld) [#/Vol] 0.1 10*3/uL 0.0 - 0.2 10*3/uL [facility] Basophils/100 WBC (Bld) 0.5 % 0.0 - 2.0 % [facility] Eosinophils (Bld) [#/Vol] 0.2 10*3/uL 0.0 - 0.5 10*3/uL [facility] Eosinophils/100 WBC (Bld) 2.5 % 1.0 - 6.0 % [facility] Erythrocyte distribution width (RBC) [Ratio] 13.9 % 11.5 - 14.5 % [facility] Hematocrit (Bld) [Volume fraction] 31.1 % Low 35.0 - 47.0 % [facility] Hemoglobin (Bld) [Mass/Vol] 10.3 g/dL Low 11.7 - 16.0 g/dL [facility] Interpretation and review of laboratory results Abnormal [facility] Lymphocytes (Bld) [#/Vol] 0.7 10*3/uL Low 1.0 - 4.3 10*3/uL [facility] Lymphocytes/100 WBC (Bld) 6.8 % Low 20.0 - 40.0 % [facility] MCH (RBC) [Entitic mass] 31.5 pg 26. 0 - 34.0 pg [facility] MCHC (RBC) [Mass/Vol] 33.1 % 32.0 - 36.0 % [facility] MCV (RBC) [Entitic vol] 95.1 fL 80.0 - 98.0 fL [facility] Monocytes (Bld) [#/Vol] 0.7 10*3/uL 0.0 - 0.8 10*3/uL [facility] Monocytes/100 WBC (Bld) 7.5 % 2.0 - 10.0 % [facility] Neutrophils (Bld) [#/Vol] 7.9 10*3/uL High 1.8 - 7.0 10*3/uL [facility] Neutrophils/100 WBC (Bld) 82.7 % High 40.0 - 80.0 % [facility] Nucleated RBC/100 WBC (Bld) [Ratio] 0.1 % [facility] Platelet mean volume (Bld) [Entitic vol] 6.7 fL Low 7.4 - 12.4 fL [facility] Platelets (Bld) [#/Vol] 248 10*3/uL 140 - 440 10*3/uL [facility] RBC (Bld) [#/Vol] 3.27 10*6/uL Low 3.8 - 5.20 10*6/uL [facility] WBC (Bld) [#/Vol] 9.6 10*3/uL 3.6 - 10.7 10*3/uL [facility] Laboratory - Chemistry and C hemistry - challengeon 05-23-2022 Magnesium [Mass/Vol] 1.9 mg/dL 1.6 - 2 .3 mg/dL [facility] Magnesium [Mass/Vol]on 05-23 Interpretation and review of laboratory results Normal [facility] No Panel Informationon 05-23 [facility] Basic metabolic 1998 panelon 05-22-2022 Anion gap [Moles/Vol] 2 mmol/L Low 3 - 13 mmol/L [facility] Calcium [Mass/Vol] 8.4 mg/dL 8.4 - 10. 4 mg/dL [facility] Chloride [Moles/Vol] 105 mmol/L 98 - 10 7 mmol/L [facility] CO2 [Moles/Vol] 30 mmol/L 22 - 30 mmol/L [facility] Creatinine [Mass/Vol] 0.69 mg/dL 0.52 - 1.04 mg/dL [facility] GFR/1.73 sq M.predicted MDRD (S/P/Bld) [Vol rate/Area] - PINF [facility] Comment on above: Calculation based on the Chronic Kidney Disease Epidemiology Collaboration (CKD-EPI) equation refit without adjustment for race Glucose [Mass/Vol] 86 mg/dL 70 - 100 mg/dL [facility] Interpretation and review of laboratory results Abnormal [facility] Potassium [Moles/Vol] 4.2 mmol/L 3.5 - 5.1 mmol/L [facility] Sodium [Moles/Vol] 137 mmol/L 135 - 145 mmol/L [facility] Urea nitrogen [Mass/Vol] 13 mg/dL 7 - 17 mg/d L [facility] CBC W Auto Differential pane l (Bld)Ordered By: Hakeem Cruz on 05-22-2022 Basophils (Bld) [#/Vol] 0.0 10*3/uL 0.0 - 0.2 10*3/uL [facility] Basophils/100 WBC (Bld) 0.5 % 0.0 - 2.0 % [facility] Eosinophils (Bld) [#/Vol] 0.3 10*3/uL 0.0 - 0.5 10*3/uL [facility] Eosinophils/100 WBC (Bld) 4.1 % 1.0 - 6.0 % [facility] Erythrocyte distribution width (RBC) [Ratio] 14.0 % 11.5 - 14.5 % [facility] Hematocrit (Bld) [Volume fraction] 33.0 % Low 35.0 - 47.0 % [facility] Hemoglobin (Bld) [Mass/Vol] 10.8 g/dL Low 11.7 - 16.0 g/dL [facility] Interpretation and review of laboratory results Abnormal [facility] Lymphocytes (Bld) [#/Vol] 1.0 10*3/uL 1.0 - 4.3 10*3/uL [facility] Lymphocytes/100 WBC (Bld) 12.8 % Low 20.0 - 40.0 % [facility] MCH (RBC) [Entitic mass] 31.2 pg 26. 0 - 34.0 pg [facility] MCHC (RBC) [Mass/Vol] 32.8 % 32.0 - 36.0 % [facility] MCV (RBC) [Entitic vol] 95.1 fL 80.0 - 98.0 fL [facility] Monocytes (Bld) [#/Vol] 0.6 10*3/uL 0.0 - 0.8 10*3/uL [facility] Monocytes/100 WBC (Bld) 8.6 % 2.0 - 10.0 % [facility] Neutrophils (Bld) [#/Vol] 5.6 10*3/uL 1.8 - 7.0 10*3/uL [facility] Neutrophils/100 WBC (Bld) 74.0 % 40.0 - 80.0 % [facility] Nucleated RBC/100 WBC (Bld) [Ratio] 0.0 % [facility] Platelet mean volume (Bld) [Entitic vol] 7.0 fL Low 7.4 - 12.4 fL [facility] Platelets (Bld) [#/Vol] 238 10*3/uL 140 - 440 10*3/uL [facility] RBC (Bld) [#/Vol] 3.47 10*6/uL Low 3.8 - 5.20 10*6/uL [facility] WBC (Bld) [#/Vol] 7.5 10*3/uL 3.6 - 10.7 10*3/uL [facility] Laboratory - Chemistry and C hemistry - challengeon 05-22-2022 Magnesium [Mass/Vol] 2.2 mg/dL 1.6 - 2 .3 mg/dL [facility] Magnesium [Mass/Vol]on 05-22 Interpretation and review of laboratory results Normal [facility] No Panel Informationon 05-22 [facility] Basic metabolic 1998 panelon 05-21-2022 Anion gap [Moles/Vol] 1 mmol/L Low 3 - 13 mmol/L [facility] Calcium [Mass/Vol] 9.1 mg/dL 8.4 - 10. 4 mg/dL [facility] Chloride [Moles/Vol] 103 mmol/L 98 - 10 7 mmol/L [facility] CO2 [Moles/Vol] 35 mmol/L High 22 - 30 mmol/L [facility] Creatinine [Mass/Vol] 0.78 mg/dL 0.52 - 1.04 mg/dL [facility] GFR/1.73 sq M.predicted MDRD (S/P/Bld) [Vol rate/Area] 84.4 mL/min/{1.73_m2} - PINF [facility] Comment on above: Calculation based on the Chronic Kidney Disease Epidemiology Collaboration (CKD-EPI) equation refit without adjustment for race Glucose [Mass/Vol] 116 mg/dL High 70 - 100 mg/dL [facility] Potassium [Moles/Vol] 4.2 mmol/L 3.5 - 5.1 mmol/L [facility] Sodium [Moles/Vol] 138 mmol/L 135 - 145 mmol/L [facility] Urea nitrogen [Mass/Vol] 15 mg/dL 7 - 17 mg/d L [facility] CBC W Auto Differential pane l (Bld)Ordered By: Yair Sanchez on 05-21-2022 Basophils (Bld) [#/Vol] 0.0 10*3/uL 0.0 - 0.2 10*3/uL [facility] Basophils/100 WBC (Bld) 0.2 % 0.0 - 2.0 % [facility] Eosinophils (Bld) [#/Vol] 0.2 10*3/uL 0.0 - 0.5 10*3/uL [facility] Eosinophils/100 WBC (Bld) 1.8 % 1.0 - 6.0 % [facility] Erythrocyte distribution width (RBC) [Ratio] 14.0 % 11.5 - 14.5 % [facility] Hematocrit (Bld) [Volume fraction] 39.0 % 35.0 - 47.0 % [facility] Hemoglobin (Bld) [Mass/Vol] 12.5 g/dL 11.7 - 16.0 g/dL [facility] Interpretation and review of laboratory results Abnormal [facility] Lymphocytes (Bld) [#/Vol] 0.7 10*3/uL Low 1.0 - 4.3 10*3/uL [facility] Lymphocytes/100 WBC (Bld) 5.6 % Low 20.0 - 40.0 % [facility] MCH (RBC) [Entitic mass] 30.7 pg 26. 0 - 34.[address] [facility] MCHC (RBC) [Mass/Vol] 32.1 % 32.0 - 36.0 % [facility] MCV (RBC) [Entitic vol] 95.4 fL 80.0 - 98.0 fL [facility] Monocytes (Bld) [#/Vol] 0.6 10*3/uL 0.0 - 0.8 10*3/uL [facility] Monocytes/100 WBC (Bld) 5.3 % 2.0 - 10.0 % [facility] Neutrophils (Bld) [#/Vol] 10.6 10*3/uL High 1.8 - 7.0 10*3/uL [facility] Neutrophils/100 WBC (Bld) 87.1 % High 40.0 - 80.0 % [facility] Nucleated RBC/100 WBC (Bld) [Ratio] 0.0 % [facility] Platelet mean volume (Bld) [Entitic vol] 7.5 fL 7.4 - 12.[address] [facility] Platelets (Bld) [#/Vol] 339 10*3/uL 140 - 440 10*3/uL [facility] RBC (Bld) [#/Vol] 4.09 10*6/uL 3.8 - 5.20 10*6/uL [facility] WBC (Bld) [#/Vol] 12.1 10*3/uL High 3.6 - 10.7 10*3/uL [facility] CT Cervical spine WO contras ton 05-21-2022 1. No fracture or subluxation of the cervical vertebrae. 2. 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 3. Diffuse osteopenia. 4. Emphysema. Report Dictated on Electronically Signed By: Jaspreet Jeong Electronically Signed Date/Time: 05/21/2022 4:41 AM [facility] [[email or web address]] [employer] Patient Name: GONZALO DELUCA : 1955 Exam Date/Time: 05/21/2022 04:31 Procedure: CT CERVICAL SPINE WO IV CONTRAST Ordering Provider: FLORES PRISCA Reason For Exam: fall with head trauma CT CERVICAL SPINE: CLINICAL INDICATION: Trauma. TECHNIQUE: 3 mm axial images of the cervical spine were obtained. Coronal and sagittal reconstruction images were provided for review. Dose reduction was employed with automated exposure control. COMPARISON: None. FINDINGS: Cervical vertebra are in anatomic alignment. Multilevel cervical disc narrowing with uncovertebral and endplate osteophytes from C3-C4 through C6-C7 level. Sclerotic density in the inferior anterior C7 vertebral body likely represents degenerative endplate changes or bone island. There are degenerative changes at the atlantodens interval. Vertebral body heights are maintained. Bilateral cervical facet osteoarthritis. The osseous structures are demineralized. The surrounding soft tissues of the neck are grossly unremarkable on this noncontrast study. Evaluation for a disc herniation is limited with CT imaging. Moderate apical emphysema [facility] Jaspreet Jeong DO - 05/21/2022 [facility] 1955 [id number] Exam Date/Time: 05/21/2022 04:31 Procedure: CT CERVICAL SPINE WO IV CONTRAST Ordering Provider: FLORES PRISCA Reason For Exam: fall with head trauma CT CERVICAL SPINE: CLINICAL INDICATION: Trauma. TECHNIQUE: 3 mm axial images of the cervical spine were obtained. Coronal and sagittal reconstruction images were provided for review. Dose reduction was employed with automated exposure control. COMPARISON: None. FINDINGS: Cervical vertebra are in anatomic alignment. Multilevel cervical disc narrowing with uncovertebral and endplate osteophytes from C3-C4 through C6-C7 level. Sclerotic density in the inferior anterior C7 vertebral body likely represents degenerative endplate changes or bone island. There are degenerative changes at the atlantodens interval. Vertebral body heights are maintained. Bilateral cervical facet osteoarthritis. The osseous structures are demineralized. The surrounding soft tissues of the neck are grossly unremarkable on this noncontrast study. Evaluation for a disc herniation is limited with CT imaging. Moderate apical emphysema IMPRESSION: 1. No fracture or subluxation of the cervical vertebrae. 2. 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 3. Diffuse osteopenia. 4. Emphysema. Report Dictated on Workstation: [employer] Electronically Signed By: Jaspreet Jeogn Electronically Signed Date/Time: 05/21/2022 4:41 AM EST [facility] Radiology Study observation (narrative) [facility] CT Head WO contraston 2022 No acute intracranial process. Minimal right periorbital soft tissue swelling. Report Dictated on Workstation: [employer] Electronically Signed By: Jaspreet Jeong Electronically Signed Date/Time: 05/21/2022 4:38 AM EST [facility] 1955 [id number] Exam Date/Time: 05/21/2022 04:30 Procedure: CT HEAD WO IV CONTRAST Ordering Provider: FLORES PRISCA Reason For Exam: Head trauma, moderate-severe CT HEAD WITHOUT CONTRAST: CLINICAL INDICATION: Fall. Right periorbital laceration. Right arm pain. COMPARISON: 11/21/2019 TECHNIQUE: [address] images through the brain. Sagittal and coronal reformatted images provided. Dose reduction was employed with automated exposure control. FINDINGS: Ventricles and extra-axial spaces: Cerebral ventricles and sulci are normal in size and configuration. No extra-axial fluid collection. Cerebral and cerebellar parenchyma: No abnormal areas of decreased or increased parenchymal density. No mass, mass effect or acute cortical infarct. Hemorrhage: None. Brainstem: Normal. Visualized paranasal sinuses: Normal. Mastoid air cells: Normal. Visualized orbits: Normal. Right orbital band is redemonstrated. Calvarium and skull base: Normal.. Other: Minimal right periorbital soft tissue swelling.. Right preorbital air density is normal finding. [facility] Jaspreet Jeong, DO - 05/21/2022 Patient Name: GONZALO DELUCA : 1955 Exam Date/Time: 05/21/2022 04:30 Procedure: CT HEAD WO IV CONTRAST Ordering Provider: FLORES PRISCA Reason For Exam: Head trauma, moderate-severe CT HEAD WITHOUT CONTRAST: CLINICAL INDICATION: Fall. Right periorbital laceration. Right arm pain. COMPARISON: 11/21/2019 TECHNIQUE: [address] images through the brain. Sagittal and coronal reformatted images provided. Dose reduction was employed with automated exposure control. FINDINGS: Ventricles and extra-axial spaces: Cerebral ventricles and sulci are normal in size and configuration. No extra-axial fluid collection. Cerebral and cerebellar parenchyma: No abnormal areas of decreased or increased parenchymal density. No mass, mass effect or acute cortical infarct. Hemorrhage: None. Brainstem: Normal. Visualized paranasal sinuses: Normal. Mastoid air cells: Normal. Visualized orbits: Normal. Right orbital band is redemonstrated. Calvarium and skull base: Normal.. Other: Minimal right periorbital soft tissue swelling.. Right preorbital air density is normal finding. IMPRESSION: No acute intracranial process. Minimal right periorbital soft tissue swelling. Report Dictated on Electronically Signed By: Jaspreet Jeong Electronically Signed Date/Time: 05/21/2022 4:38 AM EST [facility] Radiology Study observation (narrative) [facility] Laboratory - Chemistry and C hemistry - challengeon 05-21-2022 Magnesium [Mass/Vol] 2.6 mg/dL High 1.6 - 2 .3 mg/dL [facility] No Panel Informationon 05-21 Interpretation and review of laboratory results Abnormal [facility] Martha Flores MD 05/21/2022 5:56 AM Laceration Repair Performed by: Martha Flores MD Authorized by: Martha Flores MD Consent: Consent obtained: Verbal Consent given by: Patient Risks discussed: Pain, poor cosmetic result, need for additional repair and poor wound healing Anesthesia: Anesthesia method: None Laceration details: Location: Shoulder/arm Shoulder/arm location: R elbow Length (cm): 3 Depth (mm): 1 Pre-procedure details: Preparation: Patient was prepped and draped in usual sterile fashion Exploration: Hemostasis achieved with: Direct pressure Imaging outcome: foreign body not noted Wound exploration: wound explored through full range of motion and entire depth of wound visualized Wound extent: no areolar tissue violation noted Contaminated: yes Treatment: Area cleansed with: Saline Amount of cleaning: Extensive Irrigation solution: Sterile saline Irrigation volume: 150 Debridement: None Undermining: None Scar revision: no Skin repair: Repair method: Steri-Strips Number of Steri-Strips: 5 Approximation: Approximation: Close Post-procedure details: Dressing: Open (no dressing) Procedure completion: Tolerated well, no immediate complications [facility] Martha Flores MD 05/21/2022 5:56 AM Laceration Repair Performed by: Martha Flores MD Authorized by: Martha Flores MD Consent: Consent obtained: Verbal Consent given by: Patient Risks discussed: Infection, need for additional repair, poor cosmetic result and poor wound healing [place] protocol: Patient identity confirmed: Verbally with patient Anesthesia: Anesthesia method: None Laceration details: Location: Hand Hand location: L hand, dorsum Length (cm): 2 Depth (mm): 1 Pre-procedure details: Preparation: Patient was prepped and draped in usual sterile fashion Exploration: Limited defect created (wound extended): no Hemostasis achieved with: Direct pressure Imaging outcome: foreign body not noted Wound exploration: wound explored through full range of motion and entire depth of wound visualized Treatment: Area cleansed with: Saline Amount of cleaning: Extensive Irrigation solution: Sterile saline Irrigation volume: 100 Irrigation method: Pressure wash Debridement: None Undermining: None Scar revision: no Skin repair: Repair method: Steri-Strips Number of Steri-Strips: 3 Approximation: Approximation: Close Post-procedure details: Dressing: Open (no dressing) Procedure completion: Tolerated well, no immediate complications [facility] Martha Flores MD 05/21/2022 5:56 AM Laceration Repair Performed by: Martha Flores MD Authorized by: Martha Flores MD Consent: Consent obtained: Verbal Consent given by: Patient Risks discussed: Infection, pain, poor cosmetic result, poor wound healing and need for additional repair [place] protocol: Patient identity confirmed: Verbally with patient Anesthesia: Anesthesia method: Local infiltration Local anesthetic: Lidocaine 1% WITH epi Laceration details: Location: Face Face location: R eyebrow Length (cm): 2 Depth (mm): 2 Pre-procedure details: Preparation: Patient was prepped and draped in usual sterile fashion Exploration: Hemostasis achieved with: Direct pressure Imaging obtained comment: CT Imaging outcome: foreign body not noted Wound exploration: wound explored through full range of motion and entire depth of wound visualized Wound extent: areolar tissue violated Wound extent: no fascia violation noted Contaminated: yes Treatment: Area cleansed with: Saline Amount of cleaning: Extensive Irrigation solution: Sterile saline Irrigation volume: 250 Irrigation method: Pressure wash Debridement: None Undermining: None Scar revision: no Skin repair: Repair method: Sutures Suture size: 5-0 Suture material: Chromic gut Suture technique: Simple interrupted Number of sutures: 4 Approximation: Approximation: Close Post-procedure details: Dressing: Open (no dressing) Procedure completion: Tolerated well, no immediate complications [facility] XR Chest Single viewon 05-21 1. Lines/ tubes/ devices: Left IJ MediPort catheter tip terminates in the mid SVC, unchanged. 2. Lungs and Pleura: Coarse bilateral interstitial markings are redemonstrated. Lungs are hyperinflated with flattened diaphragms, stretch pulmonary markings consistent with COPD. No infiltrate or mass. No pneumothorax or pleural effusion. 3. Heart and mediastinum: Normal cardiomediastinal margin. 4. Bones: Thoracic degenerative spondylosis. Interval acute, fracture of the right surgical neck with slightly displaced fracture fragments. Diffuse osteopenia. Report Dictated on Electronically Signed By: Jaspreet Jeong Electronically Signed Date/Time: 05/21/2022 3:52 AM EST [facility] Patient Name: GONZALO DELUCA : 1955 Exam Date/Time: 05/21/2022 04:12 Procedure: XR CHEST 1 VIEW Ordering Provider: FLORES PRISCA Reason For Exam: fall PORTABLE CHEST CLINICAL INDICATION: Fall. COMPARISON: 03/16/2020. Correlation is made with CT chest dated 10/14/2021. TECHNIQUE: A single frontal view of thorax was obtained and reviewed. [facility] Jaspreet Jeong, DO - 05/21/2022 Patient Name: GONZALO DELUCA : 1955 Exam Date/Time: 05/21/2022 04:12 Procedure: XR CHEST 1 VIEW Ordering Provider: FLORES PRISCA Reason For Exam: fall PORTABLE CHEST CLINICAL INDICATION: Fall. COMPARISON: 03/16/2020. Correlation is made with CT chest dated 10/14/2021. TECHNIQUE: A single frontal view of thorax was obtained and reviewed. IMPRESSION: 1. Lines/ tubes/ devices: Left IJ MediPort catheter tip terminates in the mid SVC, unchanged. 2. Lungs and Pleura: Coarse bilateral interstitial markings are redemonstrated. Lungs are hyperinflated with flattened diaphragms, stretch pulmonary markings consistent with COPD. No infiltrate or mass. No pneumothorax or pleural effusion. 3. Heart and mediastinum: Normal cardiomediastinal margin. 4. Bones: Thoracic degenerative spondylosis. Interval acute, fracture of the right surgical neck with slightly displaced fracture fragments. Diffuse osteopenia. Report Dictated on Electronically Signed By: Jaspreet Jeong Electronically Signed Date/Time: 05/21/2022 3:52 AM [facility] Radiology Study observation (narrative) [facility] XR Elbow - right 3 Viewson 0 05-21-2022 Elbow joint effusion . Occult elbow osseous fracture is likely, but not visualized. Osteopenia. Follow-up right elbow radiograph in 7-10 days is recommended. Report Dictated on Electronically Signed By: Jaspreet Jenog Electronically Signed Date/Time: 05/21/2022 4:16 AM [facility] [[email or web address]] [employer] [facility] Patient Name: GONZALO DELUCA : 1955 Exam Date/Time: 05/21/2022 04:11 Procedure: XR ELBOW 3+ VIEWS RIGHT Ordering Provider: FLORES PRISCA Reason For Exam: fall with pain with ROM RIGHT ELBOW: CLINICAL INDICATION: Fall. Elbow pain. Reduced right elbow range of motion. TECHNIQUE: AP, lateral and oblique COMPARISON: None. FINDINGS: Displaced anterior and positive posterior fat pad are consistent with elbow joint effusion. Occult elbow fracture is suspected, but not identified. The osseous structures are demineralized. No bone lesion is identified. [facility] Jaspreet Jeong DO - 05/21/2022 Patient Name: GONZALO DELUCA : 1955 Exam Date/Time: 05/21/2022 04:11 Procedure: XR ELBOW 3+ VIEWS RIGHT Ordering Provider: FLORES PRISCA Reason For Exam: fall with pain with ROM RIGHT ELBOW: CLINICAL INDICATION: Fall. Elbow pain. Reduced right elbow range of motion. TECHNIQUE: AP, lateral and oblique COMPARISON: None. FINDINGS: Displaced anterior and positive posterior fat pad are consistent with elbow joint effusion. Occult elbow fracture is suspected, but not identified. The osseous structures are demineralized. No bone lesion is identified. IMPRESSION: Elbow joint effusion. Occult elbow osseous fracture is likely, but not visualized. Osteopenia. Follow-up right elbow radiograph in 7-10 days is recommended. Report Dictated on Electronically Signed By: Jaspreet Jeong Electronically Signed Date/Time: 05/21/2022 4:[address] [facility] Radiology Study observation (narrative) [facility] XR Elbow - right 3 ViewsOrde red By: Jaspreet Jeong on 05-21-2022 [employer] Work Phone: XR Pelvis 1 or 2 Viewson No acute traumatic osseous abnormality. Osteopenia. Report Dictated on Electronically Signed By: Jaspreet Jeong Electronically Signed Date/Time: 05/21/2022 4:17 AM EST [facility] Patient Name: GONZALO DELUCA : 1955 Exam Date/Time: 05/21/2022 04:12 Procedure: XR PELVIS 1-2 VIEWS Ordering Provider: FLORES PRISCA Reason For Exam: fall PELVIS: Indication: Fall.. Views: AP Comparison: None. Findings: Bilateral hip joints are maintained. There is no evidence for fracture or dislocation. Inferior lumbar degenerative spondylosis. No diastases of the SI joints or pubic symphysis. Sacrum is obscured by overlying bowel gas. Osseous structures are demineralized. No bone lesion or soft tissue abnormality is identified. [facility] [employer] [facility] Jaspreet Jeong DO - 05/21/2022 Patient Name: GONZALO DELUCA : 1955 Exam Date/Time: 05/21/2022 04:12 Procedure: XR PELVIS 1-2 VIEWS Ordering Provider: FLORES PRISCA Reason For Exam: fall PELVIS: Indication: Fall.. Views: AP Comparison: None. Findings: Bilateral hip joints are maintained. There is no evidence for fracture or dislocation. Inferior lumbar degenerative spondylosis. No diastases of the SI joints or pubic symphysis. Sacrum is obscured by overlying bowel gas. Osseous structures are demineralized. No bone lesion or soft tissue abnormality is identified. IMPRESSION: No acute traumatic osseous abnormality. Osteopenia. Report Dictated on Workstation: [id number] Electronically Signed By: Jaspreet Jeong Electronically Signed Date/Time: 05/21/2022 4:17 AM EST [facility] Radiology Study observation (narrative) [facility] XR Shoulder - right 2 Viewso n 05-21-2022 1. Acute, transverse fracture through the right proximal surgical humeral neck. There is mild avulsion fracture of the right greater tuberosity. Diffuse osteopenia. Remote multiple mid thoracic compression fracture deformities, unchanged. Emphysema. Report Dictated on Electronically Signed By: Jaspreet Jeong Electronically Signed Date/Time: 05/21/2022 3:56 AM [facility] [[email or web address]] [employer] [facility] Patient Name: GONZALO DELUCA : 1955 Exam Date/Time: 05/21/2022 04:11 Procedure: XR SHOULDER 2+ VIEWS RIGHT Ordering Provider: FLORES PRISCA Reason For Exam: fall RIGHT SHOULDER: CLINICAL INDICATION: Fall. Right shoulder pain. TECHNIQUE: Three views of the right shoulder. COMPARISON: None. FINDINGS: There is an acute transverse, comminuted fracture involving the right proximal humeral surgical neck. There is at least three-part fracture with slight avulsion of the greater tuberosity. The right acromiohumeral space is maintained. Mild right AC joint arthrosis. Glenohumeral joint is normal. The osseous structures are demineralized. No bone lesion is identified. There are multiple mid thoracic compression fracture deformities, unchanged. No soft tissue abnormality is identified. Lungs are hyperinflated with flattened diaphragms, consistent with COPD. [facility] [employer] [facility] Jaspreet Jeong DO - 05/21/2022 Patient Name: GONZALO DELUCA : 1955 Exam Date/Time: 05/21/2022 04:11 Procedure: XR SHOULDER 2+ VIEWS RIGHT Ordering Provider: FLORES PRISCA Reason For Exam: fall RIGHT SHOULDER: CLINICAL INDICATION: Fall. Right shoulder pain. TECHNIQUE: Three views of the right shoulder. COMPARISON: None. FINDINGS: There is an acute transverse, comminuted fracture involving the right proximal humeral surgical neck. There is at least three-part fracture with slight avulsion of the greater tuberosity. The right acromiohumeral space is maintained. Mild right AC joint arthrosis. Glenohumeral joint is normal. The osseous structures are demineralized. No bone lesion is identified. There are multiple mid thoracic compression fracture deformities, unchanged. No soft tissue abnormality is identified. Lungs are hyperinflated with flattened diaphragms, consistent with COPD. IMPRESSION: 1. Acute, transverse fracture through the right proximal surgical humeral neck. There is mild avulsion fracture of the right greater tuberosity. Diffuse osteopenia. Remote multiple mid thoracic compression fracture deformities, unchanged. Emphysema. Report Dictated on Electronically Signed By: Jaspreet Jeong Electronically Signed Date/Time: 05/21/2022 3:56 AM EST [facility] Radiology Study observation (narrative) [facility] Basic Metabolic Panelon 07-2 Anion gap [Moles/Vol] 4 mmol/L Normal 3-13 [facility] Comment on above: Performed By: #### B MP3 #### [facility] [address] [place] [address] Calcium [Mass/Vol] 8.8 mg/dL Normal 8.4-10.4 [facility] Comment on above: Performed By: #### B MP3 #### [facility] [address] [place] [address] CO2 [Moles/Vol] 31 mmol/L High 22-30 [facility] Comment on above: Performed By: #### B MP3 #### [facility] [address] [place] [address] Glucose [Mass/Vol] 91 mg/dL Normal 70-100 [facility] Comment on above: Performed By: #### B MP3 #### [facility] [address] [place] [address] Urea nitrogen [Mass/Vol] 15 mg/dL Normal 9-20 [facility] Comment on above: Performed By: #### B MP3 #### [facility] [address] [place] [address] Creatinine [Mass/Vol] 0.80 mg/dL Normal 0.52-1.25 [facility] Comment on above: Performed By: #### B MP3 #### [facility] [address] [place] [address] GFR/1.73 sq M.predicted among blacks MDRD (S/P/Bld) [Vol rate/Area] 89.7 mL/min/{1.73_m2} Normal >60 [facility] Comment on above: Performed By: #### B MP3 #### [facility] [address] [place] [address] GFR/1.73 sq M.predicted among non-blacks MDRD (S/P/Bld) [Vol rate/Area] 77.4 mL/min/{1.73_m2} Normal >60 [facility] Comment on above: Result Comment: KDIG O guidelines provide the following GFR categories: Stage GFR(ml/min/1.73 m2) Terms G1 >=90 Normal or high G2 60-89 Mildly decreased* G3a 45-59 Mildly to moderately decreased G3b 30-44 Moderately to severely decreased G4 15-29 Severely decreased G5 <15 Kidney failure *Relative to young adult level. In the absence of evidence of kidney damage, neither GFR category G1 nor G2 fulfill the criteria for CKD. The CKD-EPI equation is validated in individuals 18 years of age and older. Currently the best equation for estimating glomerular filtration rate (GFR) from serum creatinine in children is the Bedside Vazquez equation. It is less accurate in patients with extremes of muscle mass, restriction of dietary protein, ingestion of creatine, extra-renal metabolism of creatinine, or treatment with medications that affect renal tubular creatinine secretion. Performed By: #### B MP3 #### [facility] [address] [place] [address] Potassium [Moles/Vol] 4.1 mmol/L Normal 3.5-5.1 [facility] Comment on above: Performed By: #### B MP3 #### [facility] [address] [place] [address] Chloride [Moles/Vol] 106 mmol/L Normal 98-107 [facility] Comment on above: Performed By: #### B MP3 #### [facility] [address] [place] [address] Sodium [Moles/Vol] 141 mmol/L Normal 135-145 [facility] Comment on above: Performed By: #### B MP3 #### [facility] [address] [place] [address] Anion gap [Moles/Vol] 4 mmol/L 3 - 13 mmol/L [facility] Calcium [Mass/Vol] 8.8 mg/dL 8.4 - 10. 4 mg/dL [facility] Chloride [Moles/Vol] 106 mmol/L 98 - 10 7 mmol/L [facility] CO2 [Moles/Vol] 31 mmol/L High 22 - 30 mmol/L [facility] Creatinine [Mass/Vol] 0.8 mg/dL 0.52 - 1.25 mg/dL [facility] EGFR IF NonAfrican Gambian 77.4 mL/min 60 - PINF mL/min [facility] Comment on above: KDIGO guidelines pro vide the following GFR categories: Stage GFR(ml/min/1.73 m2) Terms G1 >=90 Normal or high G2 60-89 Mildly decreased* G3a 45-59 Mildly to moderately decreased G3b 30-44 Moderately to severely decreased G4 15-29 Severely decreased G5 <15 Kidney failure *Relative to young adult level. In the absence of evidence of kidney damage, neither GFR category G1 nor G2 fulfill the criteria for CKD. The CKD-EPI equation is validated in individuals 18 years of age and older. Currently the best equation for estimating glomerular filtration rate (GFR) from serum creatinine in children is the Bedside Vazquez equation. It is less accurate in patients with extremes of muscle mass, restriction of dietary protein, ingestion of creatine, extra-renal metabolism of creatinine, or treatment with medications that affect renal tubular creatinine secretion. GFR/1.73 sq M.predicted among blacks MDRD (S/P/Bld) [Vol rate/Area] 89.7 mL/min/{1.73_m2} 60 - PINF mL/min [facility] Glucose [Mass/Vol] 91 mg/dL 70 - 100 mg/dL [facility] Interpretation and review of laboratory results Abnormal [facility] Potassium [Moles/Vol] 4.1 mmol/L 3.5 - 5.1 mmol/L [facility] Sodium [Moles/Vol] 141 mmol/L 135 - 145 mmol/L [facility] Urea nitrogen (BldV) [Mass/Vol] 15 mg/dL 9 - 20 mg/dL [facility] Test Performed by [facility], [address], [place], [place] [address] [facility] CT Chest w/ Contraston 10-14 CT Chest w/ Contrast Patient Name: GONZALO EDEN Computed Tomography ACCESSION EXAM DATE/TIME PROCEDURE ORDERING PROVIDER [id number] 10/14/2021 14:[address] Thorax w/ Contrast ZIYAD MENENDEZ CPT code 19911 Q9967 Reason For Exam (CT Thorax w/ Contrast) Malignant neoplasm of exocervix Report CLINICAL HISTORY: Endometrial cancer. COMPARISON: 12/26/2020 Technique: [address] images were obtained of the chest after the uneventful IV administration of 75 mL of Isovue-370. Images were reformatted in coronal and sagittal projections. FINDINGS: Lungs: Opacity seen within both lung bases on the prior 12/26/2020 examination has resolved. The previously described spiculated nodule within the posterior right lower lobe is also no longer visualized There is a new ill-defined opacity within the superior segment of the left lower lobe (series 4:56). Severe upper lobe predominant centrilobular emphysematous changes are present along with scarring in the right lung apex. There are no new suspicious nodules or masses. Filling defects are present within the tracheobronchial tree supplying the right lower lobe (series 4:182). The remainder the tracheobronchial tree remains patent although there is bronchial wall thickening. Pleura: No pleural effusion Heart/Great vessels: Normal heart size with no pericardial effusion. The aorta and pulmonary arteries are normal in caliber. Mediastinum/Neli: No enlarged mediastinal, hilar, or axillary lymph nodes. Thyroid and Esophagus: Normal Visualized Upper Abdomen: Normal Chest wall/Lower neck: Left-sided Mediport catheter in place. Bones: Computed Tomography Report Bones are osteopenic. Multilevel compression deformities of the midthoracic spine remain unchanged. IMPRESSION: Spiculated nodule within the posterior right lower lobe described on the prior 12/26/2020 examination is no longer visualized. Ill-defined opacities within the lung bases bilaterally have also resolved. New ill-defined opacity within the superior segment of the left lower lobe. Given waxing waning appearance, this would most likely be infectious or inflammatory etiology. Severe upper lobe predominant centrilobular emphysematous changes. Small filling defect within the tracheobronchial tree supplying the right lower lobe. This is most likely secondary to mucous plugging. Report Dictated on Final Dictating Physician: MD SADE, GABRIEL BRADY Signed Date and Time: 10/16/2021 12:05 pm Signed by: MD SADE, GABRIEL BRADY Transcribed Date and Time: 10/16/2021 12:06 Normal [facility] TOX SCREEN ROUT URon 022 Amphetamines Confirm (U) [Mass/Vol] Negative Negative [facility] Barbiturates Urine Negative Negative [facility] Benzodiazepines Urine Negative Negative [facility] Cannabinoids, Urine Negative Negative [facility] Cocaine Ql (U) Negative Negative [facility] Ethanol (U) [Mass/Vol] <11 <11 mg/dL [facility] Opiates Screen Ql (U) Negative Negative [facility] oxyCODONE cutoff Screen (U) [Mass/Vol] Positive Abnormal Negative [facility] Phencyclidine Ql (U) Negative Negative [facility] CT Chest w/ Contraston 12-26 CT Chest w/ Contrast Patient Name: GONZALO EDEN Computed Tomography ACCESSION EXAM DATE/TIME PROCEDURE ORDERING PROVIDER [id number] 12/26/2020 11:[address] Thorax w/ Contrast ZIYAD MENENDEZ CPT code 96215 Q9967 Reason For Exam (CT Thorax w/ Contrast) Malignant neoplasm of exocervix; lung nodule seen on imaging study; 3-6 month follow up per radiology Report CLINICAL HISTORY: Pulmonary nodules COMPARISON: 09/24/2020 Technique: [address] images were obtained of the chest after the uneventful IV administration of 75 mL of Isovue-370. Images were reformatted in coronal and sagittal projections. FINDINGS: Lungs: Previously identified ill-defined opacity within the superior segment of the left lower lobe has improved as well as the previously identified spiculated nodule within the posterior aspect of the right lower lobe However, there is a new pleural-based spiculated nodule within the posterior right lower lobe (4:190) which measures 1.2 cm in short axis. A elongated nodular density within the posterior aspect of the right lower lobe (4:129) is also new. There are also new ill-defined opacities within the lung bases bilaterally. There are severe upper lobe predominant centrilobular emphysematous changes. Linear atelectasis/scarring within the right upper lobe is unchanged. Small filling defects are present within the bronchi supplying both lower lobes. Pleura: No pleural effusion Heart/Great vessels: Normal heart size with no pericardial effusion. The aorta and pulmonary arteries are normal in caliber. Mediastinum/Neli: No enlarged mediastinal, hilar, or axillary lymph nodes. A small amount of water attenuation fluid is present within the superior aortic pericardial recess. Thyroid and Esophagus: Normal Visualized Upper Abdomen: Normal Chest wall/Lower neck: Computed Tomography Report Normal Bones: Compression deformities of the midthoracic spine are unchanged. No new suspicious osseous lesions. IMPRESSION: Nodular opacities within both lungs which display a waxing waning appearance when compared to 09/24/2020. These findings would be more consistent with an infectious or inflammatory etiology rather than neoplastic. Clinical correlation is needed. Continued short-term follow-up is recommended. Severe upper lobe predominant centrilobular emphysematous changes. Report Dictated on Final Dictating Physician: MD STUART YUN ROBERT Signed Date and Time: 12/29/2020 2:03 pm Signed by: MD STUART YUN ROBERT Transcribed Date and Time: 12/29/2020 2:04 Normal [facility] Creatinineon 12-26-2020 Creatinine [Mass/Vol] 0.73 mg/dL Normal 0.52-1.25 [facility] Comment on above: Performed By: #### C RTN3 #### [facility] [address] [place] [address] GFR/1.73 sq M.predicted among blacks MDRD (S/P/Bld) [Vol rate/Area] mL/min/{1.73_m2} Normal >60 [facility] Comment on above: Performed By: #### C RTN3 #### [facility] [address] [place] [address] GFR/1.73 sq M.predicted among non-blacks MDRD (S/P/Bld) [Vol rate/Area] 87.0 mL/min/{1.73_m2} Normal >60 [facility] Comment on above: Result Comment: KDIG O guidelines provide the following GFR categories: Stage GFR(ml/min/1.73 m2) Terms G1 >=90 Normal or high G2 60-89 Mildly decreased* G3a 45-59 Mildly to moderately decreased G3b 30-44 Moderately to severely decreased G4 15-29 Severely decreased G5 <15 Kidney failure *Relative to young adult level. In the absence of evidence of kidney damage, neither GFR category G1 nor G2 fulfill the criteria for CKD. The CKD-EPI equation is validated in individuals 18 years of age and older. Currently the best equation for estimating glomerular filtration rate (GFR) from serum creatinine in children is the Bedside Vazquez equation. It is less accurate in patients with extremes of muscle mass, restriction of dietary protein, ingestion of creatine, extra-renal metabolism of creatinine, or treatment with medications that affect renal tubular creatinine secretion. Performed By: #### C RTN3 #### [facility] [address] [place] [address] Creatinine, SerumOrdered By: Ziyad Menendez on 12-26-2020 Creatinine [Mass/Vol] 0.73 mg/dL 0.52 - 1.25 mg/dL [facility] Work Phone: EGFR IF NonAfrican Gambian 87.0 mL/min >60 [facility] Work Phone: Comment on above: KDIGO guidelines pro vide the following GFR categories: Stage GFR(ml/min/1.73 m2) Terms G1 >=90 Normal or high G2 60-89 Mildly decreased* G3a 45-59 Mildly to moderately decreased G3b 30-44 Moderately to severely decreased G4 15-29 Severely decreased G5 <15 Kidney failure *Relative to young adult level. In the absence of evidence of kidney damage, neither GFR category G1 nor G2 fulfill the criteria for CKD. The CKD-EPI equation is validated in individuals 18 years of age and older. Currently the best equation for estimating glomerular filtration rate (GFR) from serum creatinine in children is the Bedside Vazquez equation. It is less accurate in patients with extremes of muscle mass, restriction of dietary protein, ingestion of creatine, extra-renal metabolism of creatinine, or treatment with medications that affect renal tubular creatinine secretion. GFR/1.73 sq M.predicted among blacks MDRD (S/P/Bld) [Vol rate/Area] mL/min/{1.73_m2} >60 mL/min [employer] Work Phone: Test Performed by [facility], [address] [place], [place] [id number] [place], [place] [address] Work Phone: [employer] Work Phone: XR ELBOW RIGHT (MIN 3 VIEWS) Ordered By: Lauren Lutz on 10-16-2020 Patient Name: GONZALO DELUCA Diagnostic Radiology ACCESSION EXAM DATE/TIME PROCEDURE ORDERING PROVIDER [id number] 10/16/2020 15:30 EDT CR Elbow 3+ Views Right NADEEM LUTZ DANIEL M CPT code 24732 Reason For Exam (CR Elbow 3+ Views Right) pain, fall Report Indication: Pain after fall. Three views of the right elbow show no evidence of an acute fracture or dislocation. There is no bone destruction, erosion or periosteal reaction. There is no evidence of a joint effusion or radiopaque foreign body. IMPRESSION: 1. No evidence of an acute bone process. Report Dictated on --- Final --- Dictating Physician: DO WALLACE ANTHONY Signed Date and Time: 10/16/2020 3:56 pm Signed by: DO WALLACE ANTHONY Transcribed Date and Time: 10/16/2020 3:57 [facility] Work Phone: Real, [facility] Incoming Radiology Results From [facility] - 10/16/2020 3:57 PM EDT Patient Name: GONZALO DELUCA Diagnostic Radiology ACCESSION EXAM DATE/TIME PROCEDURE ORDERING PROVIDER [id number] 10/16/2020 15:30 EDT CR Elbow 3+ Views Right NADEEM LUTZ DANIEL M CPT code 68906 Reason For Exam (CR Elbow 3+ Views Right) pain, fall Report Indication: Pain after fall. Three views of the right elbow show no evidence of an acute fracture or dislocation. There is no bone destruction, erosion or periosteal reaction. There is no evidence of a joint effusion or radiopaque foreign body. IMPRESSION: 1. No evidence of an acute bone process. Report Dictated on --- Final --- Dictating Physician: DO WALLACE ANTHONY Signed Date and Time: 10/16/2020 3:56 pm Signed by: DO WALLACE ANTHONY Transcribed Date and Time: 10/16/2020 3:57 [facility] Work Phone: [facility] Work Phone: XR LUMBAR SPINE (2-3 VIEWS)O rdered By: Lauren Lutz on 10-16-2020 [id number] ACCESSION EXAM DATE/TIME PROCEDURE ORDERING PROVIDER [id number] 10/16/2020 15:30 EDT CR Spine Lumbosacral 2 NADEEM LUTZ DANIEL M or 3 Views CPT code 28476 Reason For Exam (CR Spine Lumbosacral 2 or 3 Views) back pain, fall Report LUMBAR SPINE 3 VIEWS CLINICAL INDICATION: back pain, fall TECHNIQUE: Three views of the lumbar spine. COMPARISON: 10/21/2019 CT scan FINDINGS: No significant scoliosis. Normal SI joints. Severe disc space narrowing L5-S1. Grade 1 anterolisthesis of L4 on L5. Severe facet arthrosis L4-L5 and L5-S1. Mild to moderate upper endplate L3 compression fracture similar to the previous study. IMPRESSION: 1. Degenerative changes. Chronic L3 compression fracture. Report Dictated on --- Final --- Dictating Physician: MD VENCES JOHN R Signed Date and Time: 10/16/2020 5:11 pm Signed by: MD VENCES JOHN R Transcribed Date and Time: 10/16/2020 5:12 [facility] Work Phone: [facility], [facility] From [facility] - 10/16/2020 5:12 PM EDT Patient Name: GONZALO DELUCA Diagnostic Radiology ACCESSION EXAM DATE/TIME PROCEDURE ORDERING PROVIDER [id number] 10/16/2020 15:30 EDT CR Spine Lumbosacral 2 NADEEM LUTZ DANIEL M or 3 Views CPT code 91515 Reason For Exam (CR Spine Lumbosacral 2 or 3 Views) back pain, fall Report LUMBAR SPINE 3 VIEWS CLINICAL INDICATION: back pain, fall TECHNIQUE: Three views of the lumbar spine. COMPARISON: 10/21/2019 CT scan FINDINGS: No significant scoliosis. Normal SI joints. Severe disc space narrowing L5-S1. Grade 1 anterolisthesis of L4 on L5. Severe facet arthrosis L4-L5 and L5-S1. Mild to moderate upper endplate L3 compression fracture similar to the previous study. IMPRESSION: 1. Degenerative changes. Chronic L3 compression fracture. Report Dictated on --- Final --- Dictating Physician: MD VENCES JOHN R Signed Date and Time: 10/16/2020 5:11 pm Signed by: MD VENCES JOHN R Transcribed Date and Time: 10/16/2020 5:12 [facility] Work Phone: [facility] Work Phone: XR SACRUM COCCYX (MIN 2 VIEW S)Ordered By: Lauren Lutz on 10-16-2020 Patient Name: GONZALO DELUCA Diagnostic Radiology ACCESSION EXAM DATE/TIME PROCEDURE ORDERING PROVIDER [id number] 10/16/2020 15:30 EDT CR Sacrum/Coccyx 2+ NADEEM LUTZ DANIEL M Views CPT code 33920 Reason For Exam (CR Sacrum/Coccyx 2+ Views) fall, pain Report THREE VIEWS OF THE SACRUM AND COCCYX CLINICAL INDICATION: fall, pain TECHNIQUE: Three views of the sacrum and coccyx. COMPARISON: None FINDINGS: Prominent degenerative changes lower lumbar spine. SI joints appear intact. Nondisplaced fracture seen on the lateral view in the upper coccyx. IMPRESSION: 1. Nondisplaced fracture of the coccyx. Report Dictated on --- Final --- Dictating Physician: MD VENCES JOHN R Signed Date and Time: 10/16/2020 5:13 pm Signed by: MD VENCES JOHN R Transcribed Date and Time: 10/16/2020 5:14 [facility] Work Phone: [facility], [facility] Incoming Radiology Results From [facility] - 10/16/2020 5:14 PM EDT Patient Name: GONZALO DELUCA Diagnostic Radiology ACCESSION EXAM DATE/TIME PROCEDURE ORDERING PROVIDER [id number] 10/16/2020 15:30 EDT CR Sacrum/Coccyx 2+ NADEEM LUTZ, LAUREN King Views CPT code 19551 Reason For Exam (CR Sacrum/Coccyx 2+ Views) fall, pain Report THREE VIEWS OF THE SACRUM AND COCCYX CLINICAL INDICATION: fall, pain TECHNIQUE: Three views of the sacrum and coccyx. COMPARISON: None FINDINGS: Prominent degenerative changes lower lumbar spine. SI joints appear intact. Nondisplaced fracture seen on the lateral view in the upper coccyx. IMPRESSION: 1. Nondisplaced fracture of the coccyx. Report Dictated on --- Final --- Dictating Physician: MD VENCES JOHN R Signed Date and Time: 10/16/2020 5:13 pm Signed by: MD VENCES JOHN R Transcribed Date and Time: 10/16/2020 5:14 [facility] Work Phone: [facility] Work Phone: CT CHEST W CONTRASTOrdered B y: Ziyad Menendez on 09-24-2020 Patient Name: GONZALO DELUCA Computed Tomography ACCESSION EXAM DATE/TIME PROCEDURE ORDERING PROVIDER [id number] 09/24/2020 12:[address] Thorax w/ Contrast MENENDEZ, ZIYAD CPT code 27532 Q9967 Reason For Exam (CT Thorax w/ Contrast) Malignant neoplasm of exocervix, 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 TECHNIQUE: CT scan of the chest with IV contrast. Multiplanar reformations. COMPARISON: May,. FINDINGS: The lungs again show diffuse, bullous emphysematous change and some volume loss, with upper lobe predominance. Somewhat ill-defined and juxtapleural density again noted in the posterior aspect of right lower lobe measuring 1.3 x 1.8 cm, moderately decreased in size. Hazy, nodular density noted previously in the left lower lobe posterolateral aspect now measures 6 mm and is also moderately decreased. 6 mm nodular density in the lingula, about the same. Somewhat lobular and ill-defined, juxtapleural nodular density in the left lower lobe superior segment posteriorly measures approximately 0.8 x 1.3 cm, new from comparison (series 3:68). No discrete parenchymal mass, focal consolidation, pleural effusion or apparent pneumothorax. Mediastinal structures are without significant abnormality. Left-sided portacatheter again noted. No apparent aneurysm, pseudoaneurysm or aortic dissection. No significant lymph node enlargement or axillary adenopathy. Visualized upper abdomen grossly unremarkable. Multilevel, wedge-shaped compression deformities again noted in mid thoracic spine, specifically T5, T7 and T8 levels. Less severe superior endplate concavity and compressive change in the L2 level, also similar. IMPRESSION: 1. Marked emphysematous change, and ill-defined parenchymal densities in the bilateral lower lobes, decreased in size in the interval. 2. Ill-defined, juxtapleural density in left lower lobe superior segment, new in the interval and indeterminate. Short interval follow-up CT chest in 3-6 months Computed Tomography Report suggested to document stability. 3. No other acute findings. Report Dictated on --- Final --- Dictating Physician: MD AVILA WENDELL Signed Date and Time: 09/24/2020 6:27 pm Signed by: MD AVILA WENDELL Transcribed Date and Time: 09/24/2020 6:28 [facility] Work Phone: [facility], [facility] 6:29 PM EDT Patient Name: GONZALO DELUCA Computed Tomography ACCESSION EXAM DATE/TIME PROCEDURE ORDERING PROVIDER [id number] 09/24/2020 12:[address] Thorax w/ Contrast ZIYAD MENENDEZ CPT code 60500 Q9967 Reason For Exam (CT Thorax w/ Contrast) Malignant neoplasm of exocervix, 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 TECHNIQUE: CT scan of the chest with IV contrast. Multiplanar reformations. COMPARISON: May,. FINDINGS: The lungs again show diffuse, bullous emphysematous change and some volume loss, with upper lobe predominance. Somewhat ill-defined and juxtapleural density again noted in the posterior aspect of right lower lobe measuring 1.3 x 1.8 cm, moderately decreased in size. Hazy, nodular density noted previously in the left lower lobe posterolateral aspect now measures 6 mm and is also moderately decreased. 6 mm nodular density in the lingula, about the same. Somewhat lobular and ill-defined, juxtapleural nodular density in the left lower lobe superior segment posteriorly measures approximately 0.8 x 1.3 cm, new from comparison (series 3:68). No discrete parenchymal mass, focal consolidation, pleural effusion or apparent pneumothorax. Mediastinal structures are without significant abnormality. Left-sided portacatheter again noted. No apparent aneurysm, pseudoaneurysm or aortic dissection. No significant lymph node enlargement or axillary adenopathy. Visualized upper abdomen grossly unremarkable. Multilevel, wedge-shaped compression deformities again noted in mid thoracic spine, specifically T5, T7 and T8 levels. Less severe superior endplate concavity and compressive change in the L2 level, also similar. IMPRESSION: 1. Marked emphysematous change, and ill-defined parenchymal densities in the bilateral lower lobes, decreased in size in the interval. 2. Ill-defined, juxtapleural density in left lower lobe superior segment, new in the interval and indeterminate. Short interval follow-up CT chest in 3-6 months Computed Tomography Report suggested to document stability. 3. No other acute findings. 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 FALL SCREENING: Has the patient had 2 falls in the last year or 1 fall with injury or currently using an Ambulatory Assistive Device (Walker, Cane, Wheelchair, Crutches, etc.)? No PATIENT GENDER DATA: Female. status: : No status: NO. PATIENT RELEVANT IMPLANT DATA REVIEWED: Not Applicable RADIOLOGY DEPARTMENT: CT; Exam(s) Completed: Brain and Spine and General X-ray: Exam(s) Completed: Upper Extremity X-Ray(s): Shoulder, AP / TRUE AP / AXILLARY right PERIPHERAL IV DATA: Not applicable SIGNED BY: RT Alfred(R) September 12, 2020 12:49 PM Normal [facility] Basic metabolic 2000 panelon 09-12-2020 Anion gap [Moles/Vol] 5 mmol/L Low 8-16 [facility] Comment on above: Order Comment: Speci men Type: BLOOD SPECIMEN Performed By: #### 2 4321-2 #### [facility] CLIA [id number] [address] [place] [address] [place] Calcium [Mass/Vol] 8.8 mg/dL Normal 8.5-10.1 [facility] Comment on above: Order Comment: Speci men Type: BLOOD SPECIMEN Performed By: #### 2 4321-2 #### [facility] CLIA [id number] [address] [place], [place] [address] [place] Chloride [Moles/Vol] 102 mmol/L Normal 98-107 [facility] Comment on above: Order Comment: Speci men Type: BLOOD SPECIMEN Performed By: #### 2 4321-2 #### [facility] CLIA [id number] [address] [place], [place] [address] [place] CO2 [Moles/Vol] 33 mmol/L High 21-32 [facility] Comment on above: Order Comment: Speci men Type: BLOOD SPECIMEN Performed By: #### 2 4321-2 #### [facility] CLIA [id number] [address] [place], [place] [address] [place] Creatinine [Mass/Vol] 0.86 mg/dL Normal 0.51-0.95 [facility] Comment on above: Order Comment: Speci men Type: BLOOD SPECIMEN Performed By: #### 2 4321-2 #### [facility] CLIA [id number] [address] [place] [address] [place] GFR/1.73 sq M.predicted among blacks MDRD (S/P/Bld) [Vol rate/Area] mL/min/{1.73_m2} [facility] Comment on above: Order Comment: Speci men Type: BLOOD SPECIMEN Performed By: #### 2 4321-2 #### [facility] CLIA [id number] [address] [place] [address] [place] GFR/1.73 sq M.predicted among non-blacks MDRD (S/P/Bld) [Vol rate/Area] mL/min/{1.73_m2} [facility] Comment on above: Order Comment: Speci men Type: BLOOD SPECIMEN Result Comment: eGFR (Estimated GFR) Units of measure: mL/min/1.73 meters squared eGFR is derived from the reexpressed MDRD Study equation using the following parameters: serum creatinine, age, gender and race. The creatinine assay has been calibrated to be traceable to IDMS. An eGFR <60 mL/min/1.73m2 for >3 months is consistent with chronic kidney disease. Refer to KDOQI guidelines for clinical interpretation. In patients with unstable renal function, e.g. those with acute kidney injury, the eGFR may not accurately reflect actual GFR. Performed By: #### 2 4321-2 #### [facility] CLIA [id number] [address] [place] [address] [place] Glucose [Mass/Vol] 98 mg/dL Normal 70-99 [facility] Comment on above: Order Comment: Speci men Type: BLOOD SPECIMEN Result Comment: The [place] Diabetes Association (ADA) provides guidance for cutoff values for fasting glucose and random glucose. The ADA defines fasting as no caloric intake for at least 8 hours. Fasting plasma glucose results between 100 to 125 mg/dL indicate increased risk for diabetes (prediabetes). Fasting plasma glucose results greater than or equal to 126 mg/dL meet the criteria for diagnosis of diabetes. In the absence of unequivocal hyperglycemia, results should be confirmed by repeat testing. In a patient with classic symptoms of hyperglycemia or hyperglycemic crisis, random plasma glucose results greater than or equal to 200 mg/dL meet the criteria for diagnosis of diabetes. Reference: Standards of Medical Care in Diabetes 2016, [place] [employer] Association. Diabetes Care. 2016.39(Suppl 1). Performed By: #### 2 4321-2 #### [facility] CLIA [id number] [address] [place] [address] [place] Potassium [Moles/Vol] 3.7 mmol/L Normal 3.5-5.1 [facility] Comment on above: Order Comment: Speci men Type: BLOOD SPECIMEN Performed By: #### 2 4321-2 #### [facility] CLIA [id number] [address] [place] [address] [place] Sodium [Moles/Vol] 140 mmol/L Normal 136-145 [facility] Comment on above: Order Comment: Speci men Type: BLOOD SPECIMEN Performed By: #### 2 4321-2 #### [facility] CLIA [id number] [address] [place] [address] [place] Urea nitrogen [Mass/Vol] 17 mg/dL Normal 7-18 [facility] Comment on above: Order Comment: Speci men Type: BLOOD SPECIMEN Performed By: #### 2 4321-2 #### [facility] CLIA [id number] [address] [place], [place] [address] [facility] CBC W Auto Differential pane l (Bld)on 09-12-2020 Basophils (Bld) [#/Vol] 0.03 10*3/uL Normal <0.11 [facility] Comment on above: Order Comment: Speci men Type: BLOOD SPECIMEN Performed By: #### 5 7021-8 #### [facility] CLIA [id number] [address] [place], [place] [address] [facility] Basophils/100 WBC (Bld) 0.5 % Normal [facility] Comment on above: Order Comment: Speci men Type: BLOOD SPECIMEN Performed By: #### 5 7021-8 #### [facility] CLIA [id number] [address] [place] [address] Differential cell count method Nom (Bld) Auto Normal [facility] Comment on above: Order Comment: Speci men Type: BLOOD SPECIMEN Performed By: #### 5 7021-8 #### [facility] CLIA [id number] [address] [place] [address] STATES OF [facility] Eosinophils (Bld) [#/Vol] 0.49 10*3/uL High <0.46 [facility] Comment on above: Order Comment: Speci men Type: BLOOD SPECIMEN Performed By: #### 5 7021-8 #### [facility] CLIA [id number] [address] [place], [place] [address] [facility] Eosinophils/100 WBC (Bld) 8.2 % Normal [facility] Comment on above: Order Comment: Speci men Type: BLOOD SPECIMEN Performed By: #### 5 7021-8 #### [facility] CLIA [id number] [address] [place] [address] OF [facility] Erythrocyte distribution width (RBC) [Ratio] 12.7 % Normal 11.5-15.0 [facility] Comment on above: Order Comment: Speci men Type: BLOOD SPECIMEN Performed By: #### 5 7021-8 #### [facility] CLIA [id number] [address] [place] [address] Hematocrit (Bld) [Volume fraction] 34.2 % Low 36.0-46.0 [facility] Comment on above: Order Comment: Speci men Type: BLOOD SPECIMEN Performed By: #### 5 7021-8 #### [facility] CLIA [id number] [address] [place] [address] STATES OF [facility] Hemoglobin (Bld) [Mass/Vol] 10.8 g/dL Low 11.5-15.5 [facility] Comment on above: Order Comment: Speci men Type: BLOOD SPECIMEN Performed By: #### 5 7021-8 #### [facility] CLIA [id number] [address] [place] [address] Lymphocytes (Bld) [#/Vol] 0.59 10*3/uL Low 1.00-4.00 [facility] Comment on above: Order Comment: Speci men Type: BLOOD SPECIMEN Performed By: #### 5 7021-8 #### [facility] CLIA [id number] [address] [place] [address] Lymphocytes/100 WBC (Bld) 9.9 % Normal [facility] Comment on above: Order Comment: Speci men Type: BLOOD SPECIMEN Performed By: #### 5 7021-8 #### [facility] CLIA [id number] [address] [place] [address] MCH (RBC) [Entitic mass] 30.7 pg Normal 26.0-34.0 [facility] Comment on above: Order Comment: Speci men Type: BLOOD SPECIMEN Performed By: #### 5 7021-8 #### [facility] CLIA [id number] [address] [place], [place] [address] [place] MCHC (RBC) [Mass/Vol] 31.6 g/dL Normal 30.5-36.0 [facility] Comment on above: Order Comment: Speci men Type: BLOOD SPECIMEN Performed By: #### 5 7021-8 #### [facility] CLIA [id number] [address] [place] [address] MCV (RBC) [Entitic vol] 97.2 fL Normal 80.0-100.0 [facility] Comment on above: Order Comment: Speci men Type: BLOOD SPECIMEN Performed By: #### 5 7021-8 #### [facility] CLIA [id number] [address] [place] [address] Monocytes (Bld) [#/Vol] 0.63 10*3/uL Normal <0.87 [facility] Comment on above: Order Comment: Speci men Type: BLOOD SPECIMEN Performed By: #### 5 7021-8 #### [facility] CLIA [id number] [address] [place] [address] Monocytes/100 WBC (Bld) 10.6 % Normal [facility] Comment on above: Order Comment: Speci men Type: BLOOD SPECIMEN Performed By: #### 5 7021-8 #### [facility] CLIA [id number] [address] [place] [address] Neutrophils (Bld) [#/Vol] 4.20 10*3/uL Normal 1.45-7.50 [facility] Comment on above: Order Comment: Speci men Type: BLOOD SPECIMEN Performed By: #### 5 7021-8 #### [facility] CLIA [id number] [address] [place] [address] Neutrophils/100 WBC (Bld) 70.8 % Normal [facility] Comment on above: Order Comment: Speci men Type: BLOOD SPECIMEN Performed By: #### 5 7021-8 #### [facility] CLIA [id number] [address] [place] [address] [place] Platelet mean volume (Bld) [Entitic vol] 9.1 fL Normal 9.0-12.7 [facility] Comment on above: Order Comment: Speci men Type: BLOOD SPECIMEN Performed By: #### 5 7021-8 #### [facility] CLIA [id number] [address] [place] [address] STATES OF [facility] Platelets (Bld) [#/Vol] 215 10*3/uL Normal 150-400 [facility] Comment on above: Order Comment: Speci men Type: BLOOD SPECIMEN Performed By: #### 5 7021-8 #### [facility] CLIA [id number] [address] [place] [address] [place] RBC (Bld) [#/Vol] 3.52 10*6/uL Low 3.90-5.20 [facility] Comment on above: Order Comment: Speci men Type: BLOOD SPECIMEN Performed By: #### 5 7021-8 #### [facility] CLIA [id number] [address] [place] [address] [place] WBC (Bld) [#/Vol] 5.94 10*3/uL Normal 3.70-11.00 [facility] Comment on above: Order Comment: Speci men Type: BLOOD SPECIMEN Performed By: #### 5 7021-8 #### [facility] CLIA [id number] [address] [place] [address] CT BRAIN WO IVCONon 09-13-19 CT BRAIN WO IVCON * * *Final Report* * * DATE OF EXAM: Sep 12 2020 1:00PM [facility] 0504 - CT BRAIN WO IVCON / PROCEDURE REASON: Head trauma, headache * * * * Physician Interpretation * * * * EXAMINATION: CT BRAIN WO IVCON CLINICAL HISTORY: Head trauma, headache recent fall, hit right side of the floor head. TECHNIQUE: Serial axial images without IV contrast were obtained from the vertex to the foramen magnum. MQ: [id number] CT Radiation dose: Integrated Dose-Length Product (DLP) for this visit = 1060 mGy*cm CT Dose Reduction Employed: No dose reduction techniques were required COMPARISON: None. RESULT: Post-operative change: None. Acute change: No evidence of an acute infarct or other acute parenchymal process. Hemorrhage: No evidence of acute intracranial hemorrhage. ECASS hemorrhagic transformation score: Not Applicable Mass Lesion / Mass Effect: There is no evidence of an intracranial mass or extraaxial fluid collection. No significant mass effect. Chronic change: Small area of nonspecific presumed encephalomalacia within the right occipital lobe posteriorly. Clinical correlation is recommended. Parenchyma: There is no significant volume loss. The brain parenchyma is otherwise within normal limits for age. Ventricles: The ventricles are within normal limits of size and configuration for age. Paranasal sinuses and skull base: Presumed postsurgical changes of the right orbit. The visualized mastoid air cells are clear. The visualized paranasal sinuses are clear. Food Mixer Assembler (topogram) images: No additional findings. IMPRESSION: 1. No CT evidence of acute intracranial abnormalities. 2. Small area of presumed encephalomalacia within right occipital lobe posteriorly. Clinical correlation is recommended. 3. Presumed postsurgical changes of right orbits are partially imaged. Chemistry Faculty Member: ANGEL Transcribe Date/Time: Sep 12 2020 1:04P Dictated by : ELIOT STERLING MD This examination was interpreted and the report reviewed and electronically signed by: ELIOT STERLING MD on Sep 12 2020 1:12PM EST [id number] Normal [facility] CT CERVICAL SPINE WO IVCONon 09-12-2020 CT CERVICAL SPINE WO IVCON * * *Final Report* * * DATE OF EXAM: Sep 12 2020 1:00PM [facility] 0505 - CT CERVICAL SPINE WO IVCON / PROCEDURE REASON: C-spine fx, traumatic * * * * Physician Interpretation * * * * EXAMINATION: CT CERVICAL SPINE WO IVCON CLINICAL HISTORY: Recent falls, neck pain, possible C-spine fracture. TECHNIQUE: CT of the cervical spine without IV contrast. Spiral, high resolution axial images were obtained from the skull base to the cervicothoracic junction with sagittal and coronal planar reconstructions. MQ: [id number] CT Radiation dose: Integrated CT Dose-Length Product (DLP) for this visit = 1060 mGy*cm CT Dose Reduction Employed: No dose reduction techniques were required COMPARISON: None. RESULT: Counting reference: Craniocervical junction. Anatomic Variants: None. Food Mixer Assembler (topogram) images: No additional findings. Alignment: Grade 1 anterolisthesis of the C4 relation to C5, C5 in relation to C6. Craniocervical junction: Craniocervical junction is normal. Osseous structures/fracture: Nonspecific right lesion within the T2 vertebral body inferiorly measuring the 5 mm. This is not completely characterized on this examination. Sclerotic lesion within the C6 vertebral body is favored to be bone island. Sclerotic lesion within the C7 vertebral body is stable to be bone island. The vertebral body heights are within normal limits. Severe diffuse osteopenia limits evaluation for nondisplaced fractures. Degenerative changes: Moderate multilevel degenerative changes. Other: Severe emphysema at the lung apices, with nonspecific interlobular septal thickening. IMPRESSION: 1. No CT evidence of acute osseous abnormalities. Severe diffuse osteopenia. 2. Indeterminant 5 mm sclerotic lesion within T10 vertebral body. Although this may represent a bone island, this should be confirmed with nonemergent nuclear medicine bone scan. 3. Grade 1 anterolisthesis of C4 relation to C5 and C5 in relation to C6. These are likely secondary to facet degenerative changes. 4. Partially imaged severe emphysema at the lung apices. Nonspecific interlobular septal thickening. Nonemergent dedicated chest imaging is recommended, if not previously obtained. Anatomic Variant: None. Assume 7 cervical vertebrae with counting from the craniocervical junction. Chemistry Faculty Member: [facility] Transcribe Date/Time: Sep 12 2020 1:12P Dictated by : ELIOT STERLING MD This examination was interpreted and the report reviewed and electronically signed by: ELIOT STERLING MD on Sep 12 2020 1:28PM EST [id number] Normal [facility] ED NOTEon 09-12-2020 ED NOTE HNO ID: [id number] Author: Ursula De León RN Service: Emergency Medicine Author Type: Registered Nurse Type: ED Notes Filed: 09/12/2020 1:53 PM Note Text: Normal [facility] ED NOTE HNO ID: [id number] Author: Griselda Gaviria RN Service: Emergency Medicine Author Type: Registered Nurse Type: ED Notes Filed: 09/12/2020 11:45 AM Note Text: Pt c/o frequent falls, injury to right shoulder. Pt also c/o possible UTI-having urinary frequency. Normal [facility] ED PROV NOTEon 09-12-2020 ED PROV NOTE HNO ID: [id number] Author: Sneha Jett DO Service: Emergency Medicine Author Type: Physician Type: ED Provider Notes Filed: 09/12/2020 2:14 PM Note Text: CHIEF COMPLAINT Patient presents with: fall-right shoulder pain feeling off balance-frequent falls possible UTI HPI Gonzalo Deluca is a 64 year old female who presents with dysuria since the onset one week ago. She has been having frequent falls where she feels off balance. She has had dysuria and frequency at the same time. No fever or chills. No flank pain. She did hit her head but no LOC. No headache, vision changes or focal deficits. There are no alleviating factors. REVIEW OF SYSTEMS : See history of present illness, no hematuria, no flank pain GI: No Vomiting or diarrhea General: No fe fever PAST MEDICAL HISTORY/SURGICAL HISTORY PAST MEDICAL HISTORY Diagnosis Date - COPD (chronic obstructive pulmonary disease) ([facility]) - DDD (degenerative disc disease), lumbar - Encounter for chronic pain management - Major depression, recurrent, chronic (HCC) - Osteoporosis - Pulmonary nodule, right 2015 PAST SURGICAL HISTORY Procedure Laterality Date - CYSTOSCOPY 01/12/2017 - CYSTOSCOPY 02/11/2017 - EYE SURGERY HX Right 1994 detached retina - TUBAL LIGATION HX 1992 CURRENT MEDICATIONS No current facility-administered medications for this encounter. Current Outpatient Medications: - cephALEXin (KEFLEX) 500 mg capsule, Take 1 capsule by mouth twice daily for 7 days., Disp: 14 capsule, Rfl: 0 - oxyCODONE-acetaminophe n (PERCOCET) 7.5-325 mg tablet, Take 1 tablet by mouth four times daily for 30 days., Disp: 120 tablet, Rfl: 0 - SPIRIVA RESPIMAT 2.5 mcg/actuation inhaler, INHALE 2 PUFFS INSTRUCTED ONCE DAILY. INHALE TWO PUFFS ONCE DAILY., Disp: 4 mL, Rfl: 5 - BREO ELLIPTA 200-25 mcg/dose inhaler, INHALE 1 INHALATION INSTRUCTED ONCE DAILY., Disp: 1 Each, Rfl: 5 - sertraline (ZOLOFT) 100 mg tablet, TAKE 2 TABLETS BY MOUTH EVERY DAY, Disp: 180 tablet, Rfl: 1 - cyclobenzaprine (FLEXERIL) 5 mg tablet, TAKE 1 TABLET BY MOUTH TWICE A DAY NEEDED, Disp: 30 tablet, Rfl: 0 - predniSONE (DELTASONE) 20 mg tablet, 2 tabs daily x 3 days, then 1 tab daily x 3 days, then 1/2 tab daily x 4 days, Disp: 11 tablet, Rfl: 0 - oxyCODONE-acetaminophe n (PERCOCET) 7.5-325 mg tablet, Take 1 tablet by mouth four times daily as needed for Pain for up to 30 days., Disp: 120 tablet, Rfl: 0 - oxyCODONE-acetaminophe n (PERCOCET) 7.5-325 mg tablet, Take 1 tablet by mouth four times daily for 30 days. Do not start before July 06, 2020., Disp: 120 tablet, Rfl: 0 - albuterol HFA (PROVENTIL HFA, VENTOLIN HFA) 90 mcg/actuation inhaler, Inhale 2 Puffs as instructed every 4 hours as needed for Wheezing/Shortness of Breath., Disp: 18 g, Rfl: 5 - clonazePAM (KLONOPIN) 0.5 mg tablet, Take 1 tablet by mouth daily at bedtime for 90 days., Disp: 30 tablet, Rfl: 2 - alendronate (FOSAMAX) 70 mg tablet, Take 1 tablet by mouth one time a week., Disp: 12 tablet, Rfl: 3 - buPROPion XL (WELLBUTRIN XL) 150 mg 24 hr tablet, Take 1 tablet by mouth once daily., Disp: 90 tablet, Rfl: 1 - Food Supplement, Lactose-Free (ENSURE ACTIVE HIGH PROTEIN) liqd, Take 237 mL by mouth at bedtime as needed., Disp: 60 Can, Rfl: 2 - atorvastatin (LIPITOR) 40 mg tablet, TAKE 1 TABLET BY MOUTH EVERY DAY AT NIGHT, Disp: 90 tablet, Rfl: 3 - aspirin, enteric coated (ASPIRIN, ENTERIC COATED) 81 mg EC tablet, Take 81 mg by mouth., Disp: , Rfl: - omeprazole (PRILOSEC) 20 mg capsule, TAKE 1 CAPSULE BY MOUTH EVERY DAY (Patient not taking: Reported on 04/09/2020), Disp: 30 capsule, Rfl: 2 - montelukast (SINGULAIR) 10 mg tablet, Take 1 tablet by mouth daily at bedtime., Disp: 90 tablet, Rfl: 3 - ibuprofen (MOTRIN) 600 mg tablet, Take 600 mg by mouth every 8 hours as needed for Pain. , Disp: , Rfl: - albuterol (PROVENTIL) 2.5 mg /3 mL (0.083 %) nebulizer solution, , Disp: , Rfl: - fluticasone (FLONASE) 50 mcg/actuation nasal spray, Use 2 Sprays in each nostril once daily. , Disp: , Rfl: ALLERGIES ALLERGIES Allergen Reactions - Seasonal Allergies Intolerance FAMILY HISTORY/SOCIAL HISTORY FAMILY HISTORY Problem Relation Age of Onset - Breast Cancer Mother - other (lung cancer) Father - Breast Cancer Sister 62 - No Known Problems Brother Social History Tobacco Use - Smoking status: Former Smoker Packs/day: 1.50 Years: 69.00 Pack years: 103.50 Start date: 1971 Quit date: 2017 Years since quittin.4 - Smokeless tobacco: Never Used - Tobacco comment: vaping intermittently Vaping Use - Vaping Use: Never used Substance Use Topics - Alcohol use: No - Drug use: No IMMUNIZATIONS; Noncontributory PHYSICAL EXAM VITAL SIGNS: 09/12/20 1138 09/12/20 1310 09/12/20 1406 BP: 111/65 110/53 112/73 Pulse: 73 71 74 Resp: 18 18 16 Temp: 36.5 ?C (97.7 ?F) TempSrc: Temporal SpO2: (!) 91% 97% 98% Weight: 61.2 kg (135 lb) (more content not included)... Normal [facility] Urinalysis complete panel (U )on 09-12-2020 Bacteria LM.HPF (Urine sed) [#/Area] Moderate Abnormal None Seen [facility] Comment on above: Order Comment: Speci men Type: URINE SPECIMEN Performed By: #### 2 4356-8 #### [facility] CLIA [id number] [facility] [place] Bilirubin Ql (U) Negative Normal Negative [facility] Comment on above: Order Comment: Speci men Type: URINE SPECIMEN Performed By: #### 2 4356-8 #### [facility] CLIA [id number] [facility] [address] [place] Clarity (Unsp spec) Cloudy Abnormal Clear [facility] Comment on above: Order Comment: Speci men Type: URINE SPECIMEN Performed By: #### 2 4356-8 #### [facility] CLIA [id number] [facility] [place] [address] [place] [facility] Color (U) Yellow Normal Yellow [facility] Comment on above: Order Comment: Speci men Type: URINE SPECIMEN Performed By: #### 2 4356-8 #### [facility] CLIA [id number] [address] [place], [place] [address] [facility] Epithelial cells LM.HPF (Urine sed) [#/Area] Few Normal [facility] Comment on above: Order Comment: Speci men Type: URINE SPECIMEN Performed By: #### 2 4356-8 #### [facility] CLIA [id number] [address] [place] [address] Glucose Test strip (U) [Mass/Vol] Negative Normal Negative [facility] Comment on above: Order Comment: Speci men Type: URINE SPECIMEN Performed By: #### 2 4356-8 #### [facility] CLIA [id number] [address] [place], [place] [address] [place] Hemoglobin Ql (U) Trace Abnormal Negative [facility] Comment on above: Order Comment: Speci men Type: URINE SPECIMEN Performed By: #### 2 4356-8 #### [facility] CLIA [id number] [address] [place], [place] [address] [place] Ketones Ql (U) Negative Normal Negative [facility] Comment on above: Order Comment: Speci men Type: URINE SPECIMEN Performed By: #### 2 4356-8 #### [facility] CLIA [id number] [address] [place], [place] [address] [facility] Leukocyte esterase Test strip Ql (U) 3+ Abnormal Negative [facility] Comment on above: Order Comment: Speci men Type: URINE SPECIMEN Performed By: #### 2 4356-8 #### [facility] CLIA [id number] [facility] [place] [address] [place] Nitrite Ql (U) Negative Normal Negative [facility] Comment on above: Order Comment: Speci men Type: URINE SPECIMEN Performed By: #### 2 4356-8 #### [facility] CLIA [id number] [address] [place] [address] pH (U) 6.0 [pH] Normal 5.0-8.0 [facility] Comment on above: Order Comment: Speci men Type: URINE SPECIMEN Performed By: #### 2 4356-8 #### [facility] CLIA [id number] [address] [place] [address] Protein (U) [Mass/Vol] Negative Normal Negative [facility] Comment on above: Order Comment: Speci men Type: URINE SPECIMEN Performed By: #### 2 4356-8 #### [facility] CLIA [id number] [address] [place] [address] RBC LM.HPF (Urine sed) [#/Area] 0-3 /HPF Normal 0-3 /HPF [facility] Comment on above: Order Comment: Speci men Type: URINE SPECIMEN Performed By: #### 2 4356-8 #### [facility] CLIA [id number] [address] [place] [address] Specific gravity (U) [Rel density] 1.015 Normal 1.005-1.030 [facility] Comment on above: Order Comment: Speci men Type: URINE SPECIMEN Performed By: #### 2 4356-8 #### [facility] CLIA [id number] [address] [place] [address] Urobilinogen Ql (U) 0.2 EU/dL Normal 0.2-1.0 EU/dL [facility] Comment on above: Order Comment: Speci men Type: URINE SPECIMEN Performed By: #### 2 4356-8 #### [facility] CLIA [id number] [address] [place] [address] [place] WBC LM.HPF (Urine sed) [#/Area] 11-25 /HPF Abnormal 0-5 /HPF [facility] Comment on above: Order Comment: Speci men Type: URINE SPECIMEN Performed By: #### 2 4356-8 #### [facility] CLIA [id number] [address] [place] [address] [place] XR SHLDR >/=3V AP/HECTOR AP/OTH R RTon 09-12-2020 XR SHLDR >/=3V AP/HECTOR AP/OTHR RT * * *Final Report* * * DATE OF EXAM: Sep 12 2020 12:48PM AWX [id number] - XR SHLDR >/=3V AP/HECOTR AP/OTHR RT / PROCEDURE REASON: Shoulder pain, initial exam * * * * Physician Interpretation * * * * XR SHLDR >/=3V AP/HECTOR AP/OTHR RT HISTORY: 64 years old Clinical information: Shoulder pain, initial exam multiple recent falls, c/o right shoulder pain, difficulty with abducting arm TECHNIQUE: Images: XR SHLDR >/=3V AP/HECTOR AP/OTHR RT Comparison: None. RESULT: Visualized right lung is clear. No pneumothorax is seen. Left-sided central line catheter tip in profile with the SVC. No fractures or dislocations are seen. IMPRESSION: No acute osseous abnormality. Chemistry Faculty Member: [facility] Transcribe Date/Time: Sep 12 2020 12:55P Dictated by : SHANON CARTER MD This examination was interpreted and the report reviewed and electronically signed by: SHANON CARTER MD on Sep 12 2020 12:56PM EST [id number] Normal [facility] POCT Creatinineon 06-06-2020 Creatinine [Mass/Vol] 0.8 mg/dL 0.6 - 1.4 mg/dL [employer] Work Phone: Comment on above: Performed by [facility] CLIA ID:[id number] [place] GFR/1.73 sq M predicted among blacks MDRD (S/P/Bld) [Vol rate/Area] mL/min/{1.73_m2} >60 mL/min [facility] Work Phone: GFR/1.73 sq M predicted among non-blacks MDRD (S/P/Bld) [Vol rate/Area] 78.2 mL/min/{1.73_m2} >60 [employer] Work Phone: Comment on above: KDIGO guidelines pro vide the following GFR categories: Stage GFR(ml/min/1.73 m2) Terms G1 >=90 Normal or high G2 60-89 Mildly decreased* G3a 45-59 Mildly to moderately decreased G3b 30-44 Moderately to severely decreased G4 15-29 Severely decreased G5 <15 Kidney failure *Relative to young adult level. In the absence of evidence of kidney damage, neither GFR category G1 nor G2 fulfill the criteria for CKD. The CKD-EPI equation is validated in individuals 18 years of age and older. Currently the best equation for estimating glomerular filtration rate (GFR) from serum creatinine in children is the Bedside Vazquez equation. It is less accurate in patients with extremes of muscle mass, restriction of dietary protein, ingestion of creatine, extra-renal metabolism of creatinine, or treatment with medications that affect renal tubular creatinine secretion. Test Performed by [facility], [address] [place] [address]. [place], [place] [id number] [place] [address] Work Phone: Brain Natriuretic Peptideon 03-16-2020 Natriuretic peptide B (Bld) [Mass/Vol] 100 pg/mL 0 - 125 pg/mL [place], [place] Test Performed by [facility], [address] [place] [address]. [place], [place] [id number] [place] [address] COVID-19, Rapidon 03-16-2020 Sodium [Moles/Vol] see below [place], [place] Comment on above: Not Detected Expected Result: Not Detected _ Isothermal nucleic acid amplification performed on the [employer] Now System by the [facility] Negative results do not preclude SARS-CoV-2 infection and should not be used as the sole basis for treatment or other patient management decisions. This assay was developed by [employer] and distributed under an Emergency Use Authorization (EUA) granted by the FDA for the qualitative detection of SARS-CoV-2 nucleic acid. Provider and patient fact sheets can be found at https://www.fda.gov/media/182189/download and https://www.fda.gov/media/706246/download. Test Performed by [facility], [address], [place], [place] [address] [place] Comprehensive Metabolic Pane cory 03-16-2020 Albumin [Mass/Vol] 3.2 g/dL Low 3.5 - 5 g/dL [place] ALP [Catalytic activity/Vol] 98 U/L 38 - 126 U/L [place] ALT [Catalytic activity/Vol] 18 U/L 0 - 34 U/L [place] Comment on above: The ALT test is perf ormed by an updated assay method. Please note that the reference intervals have been changed and are now sex specific. Anion gap [Moles/Vol] 6 mmol/L [place] AST [Catalytic activity/Vol] 27 U/L 15 - 46 U/L [place] Bilirubin Ql (U) 0.1 mg/dL Low 0.2 - 1.3 mg/dL [place] Calcium [Mass/Vol] 8.7 mg/dL 8.4 - 10. 4 mg/dL [place] Chloride [Moles/Vol] 104 mmol/L 98 - 10 7 mmol/L [place] CO2 [Moles/Vol] 29 mmol/L 22 - 30 mmol/L [place] Creatinine [Mass/Vol] 0.85 mg/dL 0.52 - 1.25 mg/dL [place] EGFR IF NonAfrican [place] 72.8 mL/min >60 [place] Comment on above: KDIGO guidelines pro vide the following GFR categories: Stage GFR(ml/min/1.73 m2) Terms G1 >=90 Normal or high G2 60-89 Mildly decreased* G3a 45-59 Mildly to moderately decreased G3b 30-44 Moderately to severely decreased G4 15-29 Severely decreased G5 <15 Kidney failure *Relative to young adult level. In the absence of evidence of kidney damage, neither GFR category G1 nor G2 fulfill the criteria for CKD. The CKD-EPI equation is validated in individuals 18 years of age and older. Currently the best equation for estimating glomerular filtration rate (GFR) from serum creatinine in children is the Bedside Vazquez equation. It is less accurate in patients with extremes of muscle mass, restriction of dietary protein, ingestion of creatine, extra-renal metabolism of creatinine, or treatment with medications that affect renal tubular creatinine secretion. GFR/1.73 sq M predicted among blacks MDRD (S/P/Bld) [Vol rate/Area] 84.3 mL/min/{1.73_m2} >60 [place] Glucose [Mass/Vol] 96 mg/dL 70 - 100 mg/dL [place] Interpretation and review of laboratory results Abnormal [place] Potassium [Moles/Vol] 4.1 mmol/L 3.5 - 5.1 mmol/L [place] Protein [Mass/Vol] 6.0 g/dL Low 6.3 - 8.2 g/dL [place] Sodium [Moles/Vol] 138 mmol/L 135 - 145 mmol/L [place] Urea nitrogen [Mass/Vol] 14 mg/dL 7 - 20 mg/d L [place] Test Performed by [facility], [address] [place], [place] [id number] [place] [address] Hemogram (CBC) w/Auto Diffon 03-16-2020 Absolute Baso # 0.0 10*3/uL 0 - 0.2 10*3/uL [place] Absolute Neut # 5.0 10*3/uL 1.8 - 7 10*3/uL [place] Basophils/100 WBC (Bld) 0.5 % 0 - 2 % [place] Eosinophils (Bld) [#/Vol] 0.1 10*3/uL 0 - 0.5 10*3/uL [place] Eosinophils/100 WBC (Bld) 1.7 % 1 - 6 % [place] Erythrocyte distribution width (RBC) [Ratio] 21.1 % High 11.5 - 14.5 % [place] Granulocytes/100 WBC (Bld) 76.2 % 40 - 80 % [place] Hematocrit (Bld) [Volume fraction] 27.3 % Low 35 - 47 % [place] Hemoglobin (Bld) [Mass/Vol] 8.9 g/dL Low 11.7 - 16 g/dL [place] Interpretation and review of laboratory results Abnormal [place] Lymphocytes (Bld) [#/Vol] 0.6 10*3/uL Low 1 - 4.3 10*3/uL [place] Lymphocytes/100 WBC (Bld) 9.5 % Low 20 - 40 % [place] MCH (RBC) [Entitic mass] 30.6 pg 26 - 34 pg [place] MCHC (RBC) [Mass/Vol] 32.7 % 32 - 36 % [place] MCV (RBC) [Entitic vol] 93.4 fL 79 - 98 fL [place], [place] Monocytes (Bld) [#/Vol] 0.8 10*3/uL 0 - 0.8 10*3/uL [place] Monocytes/100 WBC (Bld) 12.1 % High 2 - 10 % [place] Platelet mean volume (Bld) [Entitic vol] 6.9 fL Low 7.4 - 10.4 fL [place] Platelets (Bld) [#/Vol] 235 10*3/uL 140 - 440 10*3/uL [place] RBC (Bld) [#/Vol] 2.93 10*6/uL Low 3.8 - 5.2 10*6/uL [place] WBC (Bld) [#/Vol] 6.6 10*3/uL 3.6 - 10.7 10*3/uL [place] Test Performed by [facility], [address], [place], [place] [address] [place] Metabolic Panelon 03-16-2020 Sodium [Moles/Vol] Slight [place] RBC MORPHOLOGYon 03-16-2020 Anisocytosis Ql (Bld) Moderate [place] RBC morphology finding Nom (Bld) ABNORMAL [place] Test Performed by [facility], [address] [place], [place] [address] [place] Troponin x1on 03-16-2020 Troponin I.cardiac [Mass/Vol] ng/mL 0 - 0.034 ng/mL [place] Comment on above: . Test Performed by [facility], [address], [place], [place] [address] [place] XR CHEST PORTABLEon 03-16-20 Patient Name: GONZALO DELUCA Diagnostic Radiology ACCESSION EXAM DATE/TIME PROCEDURE ORDERING PROVIDER [id number] 03/16/2020 14:04 EST CR Chest Portable ISIDRO SOLIZ-C, AMELIE L CPT code 35083 Reason For Exam (CR Chest Portable) Cough Report EXAM TYPE: RADIOLOGIC EXAMINATION, CHEST, SINGLE VIEW FRONTAL (CXR SINGLE VIEW) EXAM DATE AND TIME: 03/16/2020 2:04 PM EST INDICATION: Cough COMPARISON: 12/19/2019 TECHNIQUE: A single frontal view of the thorax was obtained and reviewed. Special views: None. IMPRESSION: 1. Lines/Tubes/Devices/Allen rdware: Stable projection of implanted access catheter on the left.. Please confirm position/function of devices/catheters clinically. 2. Lungs: Persistent fibrotic change and interstitial prominence. New subtle irregular 2 cm density right midlung field nonspecific. Consider focal infiltrate. Follow-up recommended. 3. Pleura: No significant effusion. No significant pneumothorax. 4. Heart and mediastinum: Limited due to technique. 5. Upper abdomen: No acute process seen. 6. Thorax:No acute bony process Report Dictated on --- Final --- Dictating Physician: MD GAMBLE JOHN Signed Date and Time: 03/16/2020 2:15 pm Signed by: MD GAMBLE JOHN Transcribed Date and Time: 03/16/2020 2:16 [place] Real, [facility] - 03/16/2020 2:16 PM EST Patient Name: GONZALO DELUCA Diagnostic Radiology ACCESSION EXAM DATE/TIME PROCEDURE ORDERING PROVIDER [id number] 03/16/2020 14:04 EST CR Chest Portable ISIDRO SOLIZ-C, AMELIE L CPT code 45863 Reason For Exam (CR Chest Portable) Cough Report EXAM TYPE: RADIOLOGIC EXAMINATION, CHEST, SINGLE VIEW FRONTAL (CXR SINGLE VIEW) EXAM DATE AND TIME: 03/16/2020 2:04 PM EST INDICATION: Cough COMPARISON: 12/19/2019 TECHNIQUE: A single frontal view of the thorax was obtained and reviewed. Special views: None. IMPRESSION: 1. Lines/Tubes/Devices/Allen rdware: Stable projection of implanted access catheter on the left.. Please confirm position/function of devices/catheters clinically. 2. Lungs: Persistent fibrotic change and interstitial prominence. New subtle irregular 2 cm density right midlung field nonspecific. Consider focal infiltrate. Follow-up recommended. 3. Pleura: No significant effusion. No significant pneumothorax. 4. Heart and mediastinum: Limited due to technique. 5. Upper abdomen: No acute process seen. 6. Thorax:No acute bony process Report Dictated on --- Final --- Dictating Physician: MD GAMBLE JOHN Signed Date and Time: 03/16/2020 2:15 pm Signed by: MD GAMBLE JOHN Transcribed Date and Time: 03/16/2020 2:16 [place] CBC Auto Differentialon 12-0 Absolute Baso # 0.0 10*3/uL 0 - 0.2 10*3/uL [place] Absolute Neut # 2.5 10*3/uL 1.8 - 7 10*3/uL [place] Basophils/100 WBC (Bld) 0.5 % 0 - 2 % [place] Eosinophils (Bld) [#/Vol] 0.2 10*3/uL 0 - 0.5 10*3/uL [place] Eosinophils/100 WBC (Bld) 6.1 % High 1 - 6 % [place] Erythrocyte distribution width (RBC) [Ratio] 16.2 % High 11.5 - 14.5 % [place] Granulocytes/100 WBC (Bld) 70.6 % 40 - 80 % [place] Hematocrit (Bld) [Volume fraction] 29.6 % Low 35 - 47 % [place] Hemoglobin (Bld) [Mass/Vol] 9.8 g/dL Low 11.7 - 16 g/dL [place] Interpretation and review of laboratory results Abnormal [place] Lymphocytes (Bld) [#/Vol] 0.5 10*3/uL Low 1 - 4.3 10*3/uL [place] Lymphocytes/100 WBC (Bld) 13.0 % Low 20 - 40 % [place] MCH (RBC) [Entitic mass] 29.6 pg 26 - 34 pg [place] MCHC (RBC) [Mass/Vol] 33.0 % 32 - 36 % [place] MCV (RBC) [Entitic vol] 89.6 fL 79 - 98 fL [place] Monocytes (Bld) [#/Vol] 0.3 10*3/uL 0 - 0.8 10*3/uL [place] Monocytes/100 WBC (Bld) 9.8 % 2 - 10 % [place] Platelet mean volume (Bld) [Entitic vol] 7.5 fL 7.4 - 10.4 fL [place] Platelets (Bld) [#/Vol] 155 10*3/uL 140 - 440 10*3/uL [place] RBC (Bld) [#/Vol] 3.30 10*6/uL Low 3.8 - 5.2 10*6/uL [place] WBC (Bld) [#/Vol] 3.5 10*3/uL Low 3.6 - 10.7 10*3/uL [place] Test Performed by [facility], [address] [place] [address] [place], [place] Comp Metabolic Panelon 02-20 ALP [Catalytic activity/Vol] 89 U/L Normal 38-126 [facility] Comment on above: Performed By: #### C MP3, MG3, HEMDF ####[facility] [id number] [place] [address] ALT [Catalytic activity/Vol] 18 U/L Normal 0-34 [facility] Comment on above: Result Comment: The ALT test is performed by an updated assay method. Please note that the reference intervals have been changed and are now sex specific. Performed By: #### C MP3, MG3, HEMDF ####[place] [address] [facility] [address] [address] Calcium [Mass/Vol] 8.8 mg/dL Normal 8.4-10.4 [facility] Comment on above: Performed By: #### C MP3, MG3, HEMDF ####[place] [address] [facility] [address] Glucose [Mass/Vol] 79 mg/dL Normal 70-100 [facility] Comment on above: Performed By: #### C MP3, MG3, HEMDF ####[place] [address] [facility] [address] Protein [Mass/Vol] 6.0 g/dL Low 6.3-8.2 [facility] Comment on above: Performed By: #### C MP3, MG3, HEMDF ####[place] [address] [facility] [place] [address] Urea nitrogen [Mass/Vol] 11 mg/dL Normal 7-20 [facility] Comment on above: Performed By: #### C MP3, MG3, HEMDF ####[place] [address] [facility] [place] [address] Anion gap [Moles/Vol] 5 Normal [facility] Comment on above: Performed By: #### C MP3, MG3, HEMDF ####[place] [address] [facility] [place] [address] AST [Catalytic activity/Vol] 35 U/L Normal 15-46 [facility] Comment on above: Performed By: #### C MP3, MG3, HEMDF ####[place] [address] [facility] [place] [address] Bilirubin [Mass/Vol] 0.3 mg/dL Normal 0.2-1.3 [facility] Comment on above: Performed By: #### C MP3, MG3, HEMDF ####[place] [address] [facility] [place] [address] CO2 [Moles/Vol] 31 mmol/L High 22-30 [facility] Comment on above: Performed By: #### C MP3, MG3, HEMDF ####[place] [address] [place], [place] Creatinine [Mass/Vol] 0.64 mg/dL Normal 0.52-1.25 [facility] Comment on above: Performed By: #### C MP3, MG3, HEMDF ####[place] [address] [place], [place] GFR/1.73 sq M predicted among blacks MDRD (S/P/Bld) [Vol rate/Area] mL/min/{1.73_m2} Normal >60 [facility] Comment on above: Performed By: #### C MP3, MG3, HEMDF ####[place] [address] [place], [place] GFR/1.73 sq M predicted among non-blacks MDRD (S/P/Bld) [Vol rate/Area] mL/min/{1.73_m2} Normal >60 [facility] Comment on above: Result Comment: KDIG O guidelines provide the following GFR categories: Stage GFR(ml/min/1.73 m2) Terms G1 >=90 Normal or high G2 60-89 Mildly decreased* G3a 45-59 Mildly to moderately decreased G3b 30-44 Moderately to severely decreased G4 15-29 Severely decreased G5 <15 Kidney failure *Relative to young adult level. In the absence of evidence of kidney damage, neither GFR category G1 nor G2 fulfill the criteria for CKD. The CKD-EPI equation is validated in individuals 18 years of age and older. Currently the best equation for estimating glomerular filtration rate (GFR) from serum creatinine in children is the Bedside Vazquez equation. It is less accurate in patients with extremes of muscle mass, restriction of dietary protein, ingestion of creatine, extra-renal metabolism of creatinine, or treatment with medications that affect renal tubular creatinine secretion. Performed By: #### C MP3, MG3, HEMDF ####[place] [address] [place], [place] Chloride [Moles/Vol] 101 mmol/L Normal 98-107 [facility] Comment on above: Performed By: #### C MP3, MG3, HEMDF ####[place] [address] [place], [place] Potassium [Moles/Vol] 4.2 mmol/L Normal 3.5-5.1 [facility] Comment on above: Performed By: #### C MP3, MG3, HEMDF ####[facility] [place], [place] Sodium [Moles/Vol] 137 mmol/L Normal 135-145 [facility] Comment on above: Performed By: #### C MP3, MG3, HEMDF ####[facility] [place], [place] Albumin [Mass/Vol] 2.2 g/dL Low 3.5-5.0 [facility] Comment on above: Performed By: #### C MP3, MG3, HEMDF ####[facility] [place], [place] Comprehensive Metabolic Pane cory 02-21-2020 Albumin [Mass/Vol] 2.2 g/dL Low 3.5 - 5 g/dL [place] ALP [Catalytic activity/Vol] 89 U/L 38 - 126 U/L [place] ALT [Catalytic activity/Vol] 18 U/L 0 - 34 U/L [place] Comment on above: The ALT test is perf ormed by an updated assay method. Please note that the reference intervals have been changed and are now sex specific. Anion gap [Moles/Vol] 5 mmol/L [place] AST [Catalytic activity/Vol] 35 U/L 15 - 46 U/L [place] Bilirubin Ql (U) 0.3 mg/dL 0.2 - 1.3 mg/dL [place] Calcium [Mass/Vol] 8.8 mg/dL 8.4 - 10. 4 mg/dL [place] Chloride [Moles/Vol] 101 mmol/L 98 - 10 7 mmol/L [place] CO2 [Moles/Vol] 31 mmol/L High 22 - 30 mmol/L [place] Creatinine [Mass/Vol] 0.64 mg/dL 0.52 - 1.25 mg/dL [place] EGFR IF NonAfrican [place]ian >90.0 >60 mL/min [place] Comment on above: KDIGO guidelines pro vide the following GFR categories: Stage GFR(ml/min/1.73 m2) Terms G1 >=90 Normal or high G2 60-89 Mildly decreased* G3a 45-59 Mildly to moderately decreased G3b 30-44 Moderately to severely decreased G4 15-29 Severely decreased G5 <15 Kidney failure *Relative to young adult level. In the absence of evidence of kidney damage, neither GFR category G1 nor G2 fulfill the criteria for CKD. The CKD-EPI equation is validated in individuals 18 years of age and older. Currently the best equation for estimating glomerular filtration rate (GFR) from serum creatinine in children is the Bedside Vazquez equation. It is less accurate in patients with extremes of muscle mass, restriction of dietary protein, ingestion of creatine, extra-renal metabolism of creatinine, or treatment with medications that affect renal tubular creatinine secretion. GFR/1.73 sq M predicted among blacks MDRD (S/P/Bld) [Vol rate/Area] mL/min/{1.73_m2} >60 mL/min [place] Glucose [Mass/Vol] 79 mg/dL 70 - 100 mg/dL [place] Interpretation and review of laboratory results Abnormal [place] Potassium [Moles/Vol] 4.2 mmol/L 3.5 - 5.1 mmol/L [place] Protein [Mass/Vol] 6.0 g/dL Low 6.3 - 8.2 g/dL [place] Sodium [Moles/Vol] 137 mmol/L 135 - 145 mmol/L [place] Urea nitrogen [Mass/Vol] 11 mg/dL 7 - 20 mg/d L [place] Hemogram w/ Autodiffon 02-20 Abs Baso Cnt 0.0 10*3/uL Normal 0.0-0.2 [facility] [employer] Comment on above: Performed By: #### C MP3, MG3, HEMDF #### [facility] [address] [place] [address] Abs Neutrophile Cnt 2.5 10*3/uL Normal 1.8-7.0 [facility] Comment on above: Performed By: #### C MP3, MG3, HEMDF #### [place] [address] [place], [place] Basophils/100 WBC (Bld) 0.5 % Normal 0.0-2.0 [facility] Comment on above: Performed By: #### C MP3, MG3, HEMDF #### [place] [address] [place], [place] Eosinophils (Bld) [#/Vol] 0.2 10*3/uL Normal 0.0-0.5 [facility] Comment on above: Performed By: #### C MP3, MG3, HEMDF #### [place] [address] [place], [place] Eosinophils/100 WBC (Bld) 6.1 % High 1.0-6.0 [facility] Comment on above: Performed By: #### C MP3, MG3, HEMDF #### [place] [address] [place], [place] Erythrocyte distribution width (RBC) [Ratio] 16.2 % High 11.5-14.5 [facility] Comment on above: Performed By: #### C MP3, MG3, HEMDF #### [place] [address] [place], [place] Granulocytes/100 WBC (Bld) 70.6 % Normal 40.0-80.0 [facility] Comment on above: Performed By: #### C MP3, MG3, HEMDF #### [place] [address] [place], [place] Hematocrit (Bld) [Volume fraction] 29.6 % Low 35.0-47.0 [facility] Comment on above: Performed By: #### C MP3, MG3, HEMDF #### [place] [address] [place], [place] Hemoglobin (Bld) [Mass/Vol] 9.8 g/dL Low 11.7-16.0 [facility] Comment on above: Performed By: #### C MP3, MG3, HEMDF #### [place] [address] [place], [place] Lymphocytes (Bld) [#/Vol] 0.5 10*3/uL Low 1.0-4.3 [facility] Comment on above: Performed By: #### C MP3, MG3, HEMDF #### [place] [address] [place], [place] Lymphocytes/100 WBC (Bld) 13.0 % Low 20.0-40.0 [facility] Comment on above: Performed By: #### C MP3, MG3, HEMDF #### [place] [address] [place], [place] MCH (RBC) [Entitic mass] 29.6 pg Normal 26.0-34.0 [facility] Comment on above: Performed By: #### C MP3, MG3, HEMDF #### [address] MCHC (RBC) [Mass/Vol] 33.0 % Normal 32.0-36.0 [facility] Comment on above: Performed By: #### C MP3, MG3, HEMDF #### [address] MCV (RBC) [Entitic vol] 89.6 fL Normal 79.0-98.0 [facility] Comment on above: Performed By: #### C MP3, MG3, HEMDF #### [place] [address] [place], [place] Monocytes (Bld) [#/Vol] 0.3 10*3/uL Normal 0.0-0.8 [facility] Comment on above: Performed By: #### C MP3, MG3, HEMDF #### [address] Monocytes/100 WBC (Bld) 9.8 % Normal 2.0-10.0 [facility] Comment on above: Performed By: #### C MP3, MG3, HEMDF #### [address] [address] Platelet mean volume (Bld) [Entitic vol] 7.5 fL Normal 7.4-10.4 [facility] Comment on above: Performed By: #### C MP3, MG3, HEMDF #### [place] [address] [place], [place] Platelets (Bld) [#/Vol] 155 10*3/uL Normal 140-440 [facility] Comment on above: Performed By: #### C MP3, MG3, HEMDF #### [place] [address] [place], [place] RBC (Bld) [#/Vol] 3.30 10*6/uL Low 3.80-5.20 [facility] Comment on above: Performed By: #### C MP3, MG3, HEMDF #### [place] [address] [place], [place] WBC (Bld) [#/Vol] 3.5 10*3/uL Low 3.6-10.7 [facility] Comment on above: Performed By: #### C MP3, MG3, HEMDF #### [place] [address] [place], [place] Magnesiumon 02-21-2020 Magnesium [Mass/Vol] 1.6 mg/dL Normal 1.6-2.3 [facility] Comment on above: Performed By: #### C MP3, MG3, HEMDF #### [place] [address] [place], [place] Magnesium [Mass/Vol] 1.6 mg/dL 1.6 - 2 .3 mg/dL [place] Otheron 02-21-2020 Test Performed by [place] [address] [place] [address] [place], [place] CBC Auto Differentialon 01-19 Absolute Baso # 0.0 10*3/uL 0 - 0.2 10*3/uL [place] Absolute Neut # 5.3 10*3/uL 1.8 - 7 10*3/uL [place] Basophils/100 WBC (Bld) 0.4 % 0 - 2 % [place] Eosinophils (Bld) [#/Vol] 0.1 10*3/uL 0 - 0.5 10*3/uL [place] Eosinophils/100 WBC (Bld) 1.0 % 1 - 6 % [place] Erythrocyte distribution width (RBC) [Ratio] 15.0 % High 11.5 - 14.5 % [place] Granulocytes/100 WBC (Bld) 84.0 % High 40 - 80 % [place] Hematocrit (Bld) [Volume fraction] 34.1 % Low 35 - 47 % [place] Hemoglobin (Bld) [Mass/Vol] 11.3 g/dL Low 11.7 - 16 g/dL [place] Lymphocytes (Bld) [#/Vol] 0.4 10*3/uL Low 1 - 4.3 10*3/uL [place] Lymphocytes/100 WBC (Bld) 5.7 % Low 20 - 40 % [place] MCH (RBC) [Entitic mass] 29.7 pg 26 - 34 pg [place] MCHC (RBC) [Mass/Vol] 33.0 % 32 - 36 % [place] MCV (RBC) [Entitic vol] 89.8 fL 79 - 98 fL [place], [place] Monocytes (Bld) [#/Vol] 0.6 10*3/uL 0 - 0.8 10*3/uL [place] Monocytes/100 WBC (Bld) 8.9 % 2 - 10 % [place] Platelet mean volume (Bld) [Entitic vol] 6.7 fL Low 7.4 - 10.4 fL [place] Platelets (Bld) [#/Vol] 315 10*3/uL 140 - 440 10*3/uL [place] RBC (Bld) [#/Vol] 3.79 10*6/uL Low 3.8 - 5.2 10*6/uL [place] WBC (Bld) [#/Vol] 6.3 10*3/uL 3.6 - 10.7 10*3/uL [place] Comprehensive Metabolic Pane cory 02-07-2020 Albumin [Mass/Vol] 3.5 g/dL 3.5 - 5 g/dL [place] ALP [Catalytic activity/Vol] 91 U/L 38 - 126 U/L [place] ALT [Catalytic activity/Vol] 21 U/L 0 - 34 U/L [place] Comment on above: The ALT test is perf ormed by an updated assay method. Please note that the reference intervals have been changed and are now sex specific. Anion gap [Moles/Vol] 4 mmol/L [place] AST [Catalytic activity/Vol] 24 U/L 15 - 46 U/L [place] Bilirubin Ql (U) 0.5 mg/dL 0.2 - 1.3 mg/dL [place] Calcium [Mass/Vol] 9.1 mg/dL 8.4 - 10. 4 mg/dL [place] Chloride [Moles/Vol] 101 mmol/L 98 - 10 7 mmol/L [place] CO2 [Moles/Vol] 33 mmol/L High 22 - 30 mmol/L [place] Creatinine [Mass/Vol] 0.66 mg/dL 0.52 - 1.25 mg/dL [place] EGFR IF NonAfrican [place]ian >90.0 >60 mL/min [place] Comment on above: KDIGO guidelines pro vide the following GFR categories: Stage GFR(ml/min/1.73 m2) Terms G1 >=90 Normal or high G2 60-89 Mildly decreased* G3a 45-59 Mildly to moderately decreased G3b 30-44 Moderately to severely decreased G4 15-29 Severely decreased G5 <15 Kidney failure *Relative to young adult level. In the absence of evidence of kidney damage, neither GFR category G1 nor G2 fulfill the criteria for CKD. The CKD-EPI equation is validated in individuals 18 years of age and older. Currently the best equation for estimating glomerular filtration rate (GFR) from serum creatinine in children is the Bedside Vazquez equation. It is less accurate in patients with extremes of muscle mass, restriction of dietary protein, ingestion of creatine, extra-renal metabolism of creatinine, or treatment with medications that affect renal tubular creatinine secretion. GFR/1.73 sq M predicted among blacks MDRD (S/P/Bld) [Vol rate/Area] mL/min/{1.73_m2} >60 mL/min [place] Glucose [Mass/Vol] 97 mg/dL 70 - 100 mg/dL [place] Potassium [Moles/Vol] 3.9 mmol/L 3.5 - 5.1 mmol/L [place] Protein [Mass/Vol] 6.1 g/dL Low 6.3 - 8.2 g/dL [place] Sodium [Moles/Vol] 139 mmol/L 135 - 145 mmol/L [place] Urea nitrogen [Mass/Vol] 19 mg/dL 7 - 20 mg/d L [place] Magnesiumon 02-07-2020 Magnesium [Mass/Vol] 1.5 mg/dL Low 1.6 - 2 .3 mg/dL [place] Otheron 02-07-2020 Interpretation and review of laboratory results Abnormal [place] Test Performed by [facility], [address] [place] [id number] [place], [place] CBC Auto Differentialon 01-19 Absolute Baso # 0.0 10*3/uL 0 - 0.2 10*3/uL [place] Absolute Neut # 7.6 10*3/uL High 1.8 - 7 10*3/uL [place] Basophils/100 WBC (Bld) 0.1 % 0 - 2 % [place] Eosinophils (Bld) [#/Vol] 0.0 10*3/uL 0 - 0.5 10*3/uL [place] Eosinophils/100 WBC (Bld) 0.0 % Low 1 - 6 % [place] Erythrocyte distribution width (RBC) [Ratio] 14.3 % 11.5 - 14.5 % [place] Granulocytes/100 WBC (Bld) 94.4 % High 40 - 80 % [place] Hematocrit (Bld) [Volume fraction] 35.2 % 35 - 47 % [place] Hemoglobin (Bld) [Mass/Vol] 11.3 g/dL Low 11.7 - 16 g/dL [place] Interpretation and review of laboratory results Abnormal [place] Lymphocytes (Bld) [#/Vol] 0.2 10*3/uL Low 1 - 4.3 10*3/uL [place] Lymphocytes/100 WBC (Bld) 2.8 % Low 20 - 40 % [place] MCH (RBC) [Entitic mass] 29.2 pg 26 - 34 pg [place] MCHC (RBC) [Mass/Vol] 32.2 % 32 - 36 % [place] MCV (RBC) [Entitic vol] 90.7 fL 79 - 98 fL [place], [place] Monocytes (Bld) [#/Vol] 0.2 10*3/uL 0 - 0.8 10*3/uL [place] Monocytes/100 WBC (Bld) 2.7 % 2 - 10 % [place] Platelet mean volume (Bld) [Entitic vol] 8.1 fL 7.4 - 10.4 fL [place] Platelets (Bld) [#/Vol] 252 10*3/uL 140 - 440 10*3/uL [place] RBC (Bld) [#/Vol] 3.88 10*6/uL 3.8 - 5.2 10*6/uL [place] WBC (Bld) [#/Vol] 8.1 10*3/uL 3.6 - 10.7 10*3/uL [place] Test [facility] by [facility], [address] [place] [address] [place] Comp Metabolic Panelon 01-30 ALP [Catalytic activity/Vol] 112 U/L Normal 38-126 [facility] Comment on above: Performed By: #### C MP3, MG3, HEMDF #### [address] [address] ALT [Catalytic activity/Vol] 20 U/L Normal 0-34 [facility] Comment on above: Result Comment: The ALT test is performed by an updated assay method. Please note that the reference intervals have been changed and are now sex specific. Performed By: #### C MP3, MG3, HEMDF #### [facility] [address] [place], [place] Calcium [Mass/Vol] 9.3 mg/dL Normal 8.4-10.4 [facility] Comment on above: Performed By: #### C MP3, MG3, HEMDF #### [facility] [address] [place], [place] Glucose [Mass/Vol] 119 mg/dL High 70-100 [facility] Comment on above: Performed By: #### C MP3, MG3, HEMDF #### [facility] [address] [place], [place] Urea nitrogen [Mass/Vol] 16 mg/dL Normal 7-20 [facility] Comment on above: Performed By: #### C MP3, MG3, HEMDF #### [place] [address] [place], [place] Anion gap [Moles/Vol] 9 Normal [facility] Comment on above: Performed By: #### C MP3, MG3, HEMDF #### [place] [address] [place], [place] AST [Catalytic activity/Vol] 26 U/L Normal 15-46 [facility] Comment on above: Performed By: #### C MP3, MG3, HEMDF #### [facility] [address] [place], [place] Bilirubin [Mass/Vol] 0.2 mg/dL Normal 0.2-1.3 [facility] Comment on above: Performed By: #### C MP3, MG3, HEMDF #### [place] [address] [place], [place] CO2 [Moles/Vol] 28 mmol/L Normal 22-30 [facility] Comment on above: Performed By: #### C MP3, MG3, HEMDF #### [place] [address] [place], [place] Creatinine [Mass/Vol] 0.54 mg/dL Normal 0.52-1.25 [facility] Comment on above: Performed By: #### C MP3, MG3, HEMDF #### [place] [address] [place] [address] GFR/1.73 sq M predicted among blacks MDRD (S/P/Bld) [Vol rate/Area] mL/min/{1.73_m2} Normal >60 [facility] Comment on above: Performed By: #### C MP3, MG3, HEMDF #### [facility] [address] [place] [address] GFR/1.73 sq M predicted among non-blacks MDRD (S/P/Bld) [Vol rate/Area] mL/min/{1.73_m2} Normal >60 [facility] Comment on above: Result Comment: KDIG O guidelines provide the following GFR categories: Stage GFR(ml/min/1.73 m2) Terms G1 >=90 Normal or high G2 60-89 Mildly decreased* G3a 45-59 Mildly to moderately decreased G3b 30-44 Moderately to severely decreased G4 15-29 Severely decreased G5 <15 Kidney failure *Relative to young adult level. In the absence of evidence of kidney damage, neither GFR category G1 nor G2 fulfill the criteria for CKD. The CKD-EPI equation is validated in individuals 18 years of age and older. Currently the best equation for estimating glomerular filtration rate (GFR) from serum creatinine in children is the Bedside Vazquez equation. It is less accurate in patients with extremes of muscle mass, restriction of dietary protein, ingestion of creatine, extra-renal metabolism of creatinine, or treatment with medications that affect renal tubular creatinine secretion. Performed By: #### C MP3, MG3, HEMDF #### [facility] [address] [place] [address] Protein [Mass/Vol] 6.9 g/dL Normal 6.3-8.2 [facility] Comment on above: Performed By: #### C MP3, MG3, HEMDF #### [facility] [address] [place] [address] Chloride [Moles/Vol] 102 mmol/L Normal 98-107 [facility] Comment on above: Performed By: #### C MP3, MG3, HEMDF #### [facility] [address] [place], [place] Potassium [Moles/Vol] 4.5 mmol/L Normal 3.5-5.1 [facility] Comment on above: Performed By: #### C MP3, MG3, HEMDF #### [facility] [address] [place], [place] Sodium [Moles/Vol] 139 mmol/L Normal 135-145 [facility] Comment on above: Performed By: #### C MP3, MG3, HEMDF #### [facility] [address] [place], [place] Albumin [Mass/Vol] 3.8 g/dL Normal 3.5-5.0 [facility] Comment on above: Performed By: #### C MP3, MG3, HEMDF #### [facility] [address] [place], [place] Comprehensive Metabolic Pane cory 01-31-2020 Albumin [Mass/Vol] 3.8 g/dL 3.5 - 5 g/dL [place] ALP [Catalytic activity/Vol] 112 U/L 38 - 126 U/L [place] ALT [Catalytic activity/Vol] 20 U/L 0 - 34 U/L [place] Comment on above: The ALT test is perf ormed by an updated assay method. Please note that the reference intervals have been changed and are now sex specific. Anion gap [Moles/Vol] 9 mmol/L [place] AST [Catalytic activity/Vol] 26 U/L 15 - 46 U/L [place] Bilirubin Ql (U) 0.2 mg/dL 0.2 - 1.3 mg/dL [place] Calcium [Mass/Vol] 9.3 mg/dL 8.4 - 10. 4 mg/dL [place] Chloride [Moles/Vol] 102 mmol/L 98 - 10 7 mmol/L [place] CO2 [Moles/Vol] 28 mmol/L 22 - 30 mmol/L [place] Creatinine [Mass/Vol] 0.54 mg/dL 0.52 - 1.25 mg/dL [place] EGFR IF NonAfrican [place]ian >90.0 >60 mL/min [place] Comment on above: KDIGO guidelines pro vide the following GFR categories: Stage GFR(ml/min/1.73 m2) Terms G1 >=90 Normal or high G2 60-89 Mildly decreased* G3a 45-59 Mildly to moderately decreased G3b 30-44 Moderately to severely decreased G4 15-29 Severely decreased G5 <15 Kidney failure *Relative to young adult level. In the absence of evidence of kidney damage, neither GFR category G1 nor G2 fulfill the criteria for CKD. The CKD-EPI equation is validated in individuals 18 years of age and older. Currently the best equation for estimating glomerular filtration rate (GFR) from serum creatinine in children is the Bedside Vazquez equation. It is less accurate in patients with extremes of muscle mass, restriction of dietary protein, ingestion of creatine, extra-renal metabolism of creatinine, or treatment with medications that affect renal tubular creatinine secretion. GFR/1.73 sq M predicted among blacks MDRD (S/P/Bld) [Vol rate/Area] mL/min/{1.73_m2} >60 mL/min [place] Glucose [Mass/Vol] 119 mg/dL High 70 - 100 mg/dL [place] Interpretation and review of laboratory results Abnormal [place] Potassium [Moles/Vol] 4.5 mmol/L 3.5 - 5.1 mmol/L [place] Protein [Mass/Vol] 6.9 g/dL 6.3 - 8.2 g/dL [place] Sodium [Moles/Vol] 139 mmol/L 135 - 145 mmol/L [place] Urea nitrogen [Mass/Vol] 16 mg/dL 7 - 20 mg/d L [place] Hemogram w/ Autodiffon 01-30 Abs Baso Cnt 0.0 10*3/uL Normal 0.0-0.2 [employer] Comment on above: Performed By: #### C MP3, MG3, HEMDF #### [employer] [address] [place] [address] Abs Neutrophile Cnt 7.6 10*3/uL High 1.8-7.0 [facility] Comment on above: Performed By: #### C MP3, MG3, HEMDF #### [place] [address] [place] [address] Basophils/100 WBC (Bld) 0.1 % Normal 0.0-2.0 [facility] Comment on above: Performed By: #### C MP3, MG3, HEMDF #### [place] [address] [place] Eosinophils (Bld) [#/Vol] 0.0 10*3/uL Normal 0.0-0.5 [facility] Comment on above: Performed By: #### C MP3, MG3, HEMDF #### [place] [address] [place] Eosinophils/100 WBC (Bld) 0.0 % Low 1.0-6.0 [facility] Comment on above: Performed By: #### C MP3, MG3, HEMDF #### [place] [address] [place] Erythrocyte distribution width (RBC) [Ratio] 14.3 % Normal 11.5-14.5 [facility] Comment on above: Performed By: #### C MP3, MG3, HEMDF #### [place] [address] [place] Granulocytes/100 WBC (Bld) 94.4 % High 40.0-80.0 [facility] Comment on above: Performed By: #### C MP3, MG3, HEMDF #### [place] [address] [place] Hematocrit (Bld) [Volume fraction] 35.2 % Normal 35.0-47.0 [facility] Comment on above: Performed By: #### C MP3, MG3, HEMDF #### [place] [address] [place] Hemoglobin (Bld) [Mass/Vol] 11.3 g/dL Low 11.7-16.0 [facility] Comment on above: Performed By: #### C MP3, MG3, HEMDF #### [place] [address] [place] Lymphocytes (Bld) [#/Vol] 0.2 10*3/uL Low 1.0-4.3 [facility] Comment on above: Performed By: #### C MP3, MG3, HEMDF #### [place] [address] [place] Lymphocytes/100 WBC (Bld) 2.8 % Low 20.0-40.0 [facility] Comment on above: Performed By: #### C MP3, MG3, HEMDF #### [place] [address] [place] MCH (RBC) [Entitic mass] 29.2 pg Normal 26.0-34.0 [facility] Comment on above: Performed By: #### C MP3, MG3, HEMDF #### [place] [address] [place] MCHC (RBC) [Mass/Vol] 32.2 % Normal 32.0-36.0 [facility] Comment on above: Performed By: #### C MP3, MG3, HEMDF #### [place] [address] [place], [place] MCV (RBC) [Entitic vol] 90.7 fL Normal 79.0-98.0 [facility] Comment on above: Performed By: #### C MP3, MG3, HEMDF #### [place] [address] [place], [place] Monocytes (Bld) [#/Vol] 0.2 10*3/uL Normal 0.0-0.8 [facility] Comment on above: Performed By: #### C MP3, MG3, HEMDF #### [place] [address] [place], [place] Monocytes/100 WBC (Bld) 2.7 % Normal 2.0-10.0 [facility] Comment on above: Performed By: #### C MP3, MG3, HEMDF #### [place] [address] [place], [place] Platelet mean volume (Bld) [Entitic vol] 8.1 fL Normal 7.4-10.4 [facility] Comment on above: Performed By: #### C MP3, MG3, HEMDF #### [place] [address] [place], [place] Platelets (Bld) [#/Vol] 252 10*3/uL Normal 140-440 [facility] Comment on above: Performed By: #### C MP3, MG3, HEMDF #### [place] [address] [place], [place] RBC (Bld) [#/Vol] 3.88 10*6/uL Normal 3.80-5.20 [facility] Comment on above: Performed By: #### C MP3, MG3, HEMDF #### [place] [address] [place], [place] WBC (Bld) [#/Vol] 8.1 10*3/uL Normal 3.6-10.7 [facility] Comment on above: Performed By: #### C MP3, MG3, HEMDF #### [place] [place], [place] Magnesiumon 01-31-2020 Magnesium [Mass/Vol] 1.8 mg/dL Normal 1.6-2.3 [facility] Comment on above: Performed By: #### C MP3, MG3, HEMDF #### [place] [address] [place], [place] Magnesium [Mass/Vol] 1.8 mg/dL 1.6 - 2 .3 mg/dL [place], [place] Otheron 01-31-2020 Test Performed by [place] [address] [place] [address] [place], [place] CBC Auto Differentialon Absolute Baso # 0.0 10*3/uL 0 - 0.2 10*3/uL [place] Absolute Neut # 5.1 10*3/uL 1.8 - 7 10*3/uL [place] Basophils/100 WBC (Bld) 0.5 % 0 - 2 % [place] Eosinophils (Bld) [#/Vol] 0.5 10*3/uL 0 - 0.5 10*3/uL [place] Eosinophils/100 WBC (Bld) 6.7 % High 1 - 6 % [place] Erythrocyte distribution width (RBC) [Ratio] 14.5 % 11.5 - 14.5 % [place] Granulocytes/100 WBC (Bld) 73.3 % 40 - 80 % [place] Hematocrit (Bld) [Volume fraction] 35.8 % 35 - 47 % [place] Hemoglobin (Bld) [Mass/Vol] 11.5 g/dL Low 11.7 - 16 g/dL [place] Interpretation and review of laboratory results Abnormal [place] Lymphocytes (Bld) [#/Vol] 0.8 10*3/uL Low 1 - 4.3 10*3/uL [place] Lymphocytes/100 WBC (Bld) 12.2 % Low 20 - 40 % [place] MCH (RBC) [Entitic mass] 29.3 pg 26 - 34 pg [place] MCHC (RBC) [Mass/Vol] 32.2 % 32 - 36 % [place] MCV (RBC) [Entitic vol] 90.9 fL 79 - 98 fL [place] Monocytes (Bld) [#/Vol] 0.5 10*3/uL 0 - 0.8 10*3/uL [place] Monocytes/100 WBC (Bld) 7.3 % 2 - 10 % [place] Platelet mean volume (Bld) [Entitic vol] 8.1 fL 7.4 - 10.4 fL [place] Platelets (Bld) [#/Vol] 219 10*3/uL 140 - 440 10*3/uL [place] RBC (Bld) [#/Vol] 3.94 10*6/uL 3.8 - 5.2 10*6/uL [place] WBC (Bld) [#/Vol] 6.9 10*3/uL 3.6 - 10.7 10*3/uL [place] Test [facility] by [facility], [address], [place], [place] [address] [place], [place] Comprehensive Metabolic Pane cory 01-24-2020 Albumin [Mass/Vol] 3.9 g/dL 3.5 - 5 g/dL [place] ALP [Catalytic activity/Vol] 97 U/L 38 - 126 U/L [place] ALT [Catalytic activity/Vol] 22 U/L 0 - 34 U/L [place] Comment on above: The ALT test is perf ormed by an updated assay method. Please note that the reference intervals have been changed and are now sex specific. Anion gap [Moles/Vol] 7 mmol/L [place] AST [Catalytic activity/Vol] 27 U/L 15 - 46 U/L [place] Bilirubin Ql (U) 0.4 mg/dL 0.2 - 1.3 mg/dL [place] Calcium [Mass/Vol] 9.4 mg/dL 8.4 - 10. 4 mg/dL [place] Chloride [Moles/Vol] 102 mmol/L 98 - 10 7 mmol/L [place] CO2 [Moles/Vol] 31 mmol/L High 22 - 30 mmol/L [place] Creatinine [Mass/Vol] 0.73 mg/dL 0.52 - 1.25 mg/dL [place] EGFR IF NonAfrican [place]ian 87.5 mL/min >60 [place] Comment on above: KDIGO guidelines pro vide the following GFR categories: Stage GFR(ml/min/1.73 m2) Terms G1 >=90 Normal or high G2 60-89 Mildly decreased* G3a 45-59 Mildly to moderately decreased G3b 30-44 Moderately to severely decreased G4 15-29 Severely decreased G5 <15 Kidney failure *Relative to young adult level. In the absence of evidence of kidney damage, neither GFR category G1 nor G2 fulfill the criteria for CKD. The CKD-EPI equation is validated in individuals 18 years of age and older. Currently the best equation for estimating glomerular filtration rate (GFR) from serum creatinine in children is the Bedside Vazquez equation. It is less accurate in patients with extremes of muscle mass, restriction of dietary protein, ingestion of creatine, extra-renal metabolism of creatinine, or treatment with medications that affect renal tubular creatinine secretion. GFR/1.73 sq M predicted among blacks MDRD (S/P/Bld) [Vol rate/Area] mL/min/{1.73_m2} >60 mL/min [place] Glucose [Mass/Vol] 106 mg/dL High 70 - 100 mg/dL [place] Interpretation and review of laboratory results Abnormal [place] Potassium [Moles/Vol] 4.3 mmol/L 3.5 - 5.1 mmol/L [place] Protein [Mass/Vol] 6.8 g/dL 6.3 - 8.2 g/dL [place] Sodium [Moles/Vol] 140 mmol/L 135 - 145 mmol/L [place] Urea nitrogen [Mass/Vol] 20 mg/dL 7 - 20 mg/d L [place] Magnesium[place] 01-24-2020 Magnesium [Mass/Vol] 2.0 mg/dL 1.6 - 2 .3 mg/dL [place] Otheron 01-24-2020 Test Performed by [facility], [address] [place] [address] [place], [place] CBC Auto Differentialon 12-20 Absolute Baso # 0.1 10*3/uL 0 - 0.2 10*3/uL [place] Absolute Neut # 5.5 10*3/uL 1.8 - 7 10*3/uL [place] Basophils/100 WBC (Bld) 1.0 % 0 - 2 % [place] Eosinophils (Bld) [#/Vol] 1.2 10*3/uL High 0 - 0.5 10*3/uL [place] Eosinophils/100 WBC (Bld) 13.8 % High 1 - 6 % [place] Erythrocyte distribution width (RBC) [Ratio] 14.0 % 11.5 - 14.5 % [place] Granulocytes/100 WBC (Bld) 63.2 % 40 - 80 % [place] Hematocrit (Bld) [Volume fraction] 37.1 % 35 - 47 % [place] Hemoglobin (Bld) [Mass/Vol] 12.4 g/dL 11.7 - 16 g/dL [place] Interpretation and review of laboratory results Abnormal [place] Lymphocytes (Bld) [#/Vol] 1.3 10*3/uL 1 - 4.3 10*3/uL [place] Lymphocytes/100 WBC (Bld) 15.1 % Low 20 - 40 % [place] MCH (RBC) [Entitic mass] 30.2 pg 26 - 34 pg [place] MCHC (RBC) [Mass/Vol] 33.5 % 32 - 36 % [place] MCV (RBC) [Entitic vol] 90.0 fL 79 - 98 fL [place] Monocytes (Bld) [#/Vol] 0.6 10*3/uL 0 - 0.8 10*3/uL [place] Monocytes/100 WBC (Bld) 6.9 % 2 - 10 % [place] Platelet mean volume (Bld) [Entitic vol] 8.1 fL 7.4 - 10.4 fL [place] Platelets (Bld) [#/Vol] 224 10*3/uL 140 - 440 10*3/uL [place] RBC (Bld) [#/Vol] 4.12 10*6/uL 3.8 - 5.2 10*6/uL [place] WBC (Bld) [#/Vol] 8.7 10*3/uL 3.6 - 10.7 10*3/uL [place] Test Performed by [facility], [address], [place], [place] [id number] [place] [address] Comprehensive Metabolic Pane cory 01-17-2020 Albumin [Mass/Vol] 3.8 g/dL 3.5 - 5 g/dL [place] ALP [Catalytic activity/Vol] 99 U/L 38 - 126 U/L [place] ALT [Catalytic activity/Vol] 17 U/L 0 - 34 U/L [place] Comment on above: The ALT test is perf ormed by an updated assay method. Please note that the reference intervals have been changed and are now sex specific. Anion gap [Moles/Vol] 7 mmol/L [place] AST [Catalytic activity/Vol] 29 U/L 15 - 46 U/L [place] Bilirubin Ql (U) 0.3 mg/dL 0.2 - 1.3 mg/dL [place] Calcium [Mass/Vol] 8.7 mg/dL 8.4 - 10. 4 mg/dL [place] Chloride [Moles/Vol] 102 mmol/L 98 - 10 7 mmol/L [place] CO2 [Moles/Vol] 33 mmol/L High 22 - 30 mmol/L [place] Creatinine [Mass/Vol] 0.75 mg/dL 0.52 - 1.25 mg/dL [place] EGFR IF NonAfrican [place]ian 84.7 mL/min >60 [place] Comment on above: KDIGO guidelines pro vide the following GFR categories: Stage GFR(ml/min/1.73 m2) Terms G1 >=90 Normal or high G2 60-89 Mildly decreased* G3a 45-59 Mildly to moderately decreased G3b 30-44 Moderately to severely decreased G4 15-29 Severely decreased G5 <15 Kidney failure *Relative to young adult level. In the absence of evidence of kidney damage, neither GFR category G1 nor G2 fulfill the criteria for CKD. The CKD-EPI equation is validated in individuals 18 years of age and older. Currently the best equation for estimating glomerular filtration rate (GFR) from serum creatinine in children is the Bedside Vazquez equation. It is less accurate in patients with extremes of muscle mass, restriction of dietary protein, ingestion of creatine, extra-renal metabolism of creatinine, or treatment with medications that affect renal tubular creatinine secretion. GFR/1.73 sq M predicted among blacks MDRD (S/P/Bld) [Vol rate/Area] mL/min/{1.73_m2} >60 mL/min [place] Glucose [Mass/Vol] 93 mg/dL 70 - 100 mg/dL [place] Interpretation and review of laboratory results Abnormal [place] Potassium [Moles/Vol] 2.8 mmol/L Low 3.5 - 5.1 mmol/L [place] Protein [Mass/Vol] 6.6 g/dL 6.3 - 8.2 g/dL [place] Sodium [Moles/Vol] 142 mmol/L 135 - 145 mmol/L [place] Urea nitrogen [Mass/Vol] 9 mg/dL 7 - 20 mg/d L [place] Magnesium[place] 01-17-2020 Magnesium [Mass/Vol] 1.9 mg/dL 1.6 - 2 .3 mg/dL [place] Otheron 01-17-2020 Test Performed by [facility], [address] [place] [address]. [place], [place] [id number] [place] [address] CT Nonbill Guide Rad Therapy on 12-26-2019 CT Nonbill Guide Rad Therapy Patient Name: GONZALO DELUCA CT Exam Date/Time 12/26/2019 11:38:[address] Nonbill Guide Rad Therapy Ordering Physician MD WU, BURKE E Accession Number [id number] Reason For Exam Endometriod Ca Report CT of the abdomen and pelvis without intravenous contrast, 12/26/2019. Reason for examination: Endometrial cancer. Patient for radiation therapy. COMPARISON: October 27, 2019. TECHNIQUE: Large [id number] 3 mm axial images were obtained through the abdomen and pelvis for radiation therapy planning purposes. No intravenous or oral contrast was administered. FINDINGS: There are emphysematous changes with scattered areas of scarring or atelectasis in the visualized portions of the lungs. Evaluation is somewhat limited by motion. ABDOMEN: Evaluation is limited by technique, motion and artifact from the patient's arms. There is a nonspecific subcentimeter lesion in the left lobe of the liver which is unchanged and too small to accurately characterize. There is a nonobstructing 3 mm calculus in the upper pole of the left kidney. No mass or lymphadenopathy is appreciated. Pelvis: The uterus is not identified, and likely has been removed. No definite mass or lymphadenopathy is noted. No abnormal fluid collection is identified. There are diverticula in the distal colon. There are degenerative changes in the mid to lower thoracic spine and lumbar spine. There is a compression deformity of one of the midthoracic vertebral bodies which was better evaluated on a CT of a thoracic spine dated October 21, 2019. Also a mild compression deformity of L3 which is unchanged. IMPRESSION: Postoperative changes. Chronic findings as described. No clear evidence of metastatic disease. Report Dictated on Final Dictated: 12/26/2019 3:50 pm Dictating Physician: MD DOZIER JOE M Signed Date and Time: 12/26/2019 3:54 pm Signed by: MD DOZIER JOE M Transcribed Date and Time: 12/26/2019 3:50 Normal [facility] Otheron 12-26-2019 Patient Name: GONZALO DELUCA ---CT--- Exam Date/Time 12/26/2019 11:38:[address] Nonbill Guide Rad Therapy Ordering Physician MD WU, BURKE E Accession Number [id number] Reason For Exam Endometriod Ca Report CT of the abdomen and pelvis without intravenous contrast, 12/26/2019. Reason for examination: Endometrial cancer. Patient for radiation therapy. COMPARISON: October 27, 2019. TECHNIQUE: Large [id number] 3 mm axial images were obtained through the abdomen and pelvis for radiation therapy planning purposes. No intravenous or oral contrast was administered. FINDINGS: There are emphysematous changes with scattered areas of scarring or atelectasis in the visualized portions of the lungs. Evaluation is somewhat limited by motion. ABDOMEN: Evaluation is limited by technique, motion and artifact from the patient's arms. There is a nonspecific subcentimeter lesion in the left lobe of the liver which is unchanged and too small to accurately characterize. There is a nonobstructing 3 mm calculus in the upper pole of the left kidney. No mass or lymphadenopathy is appreciated. Pelvis: The uterus is not identified, and likely has been removed. No definite mass or lymphadenopathy is noted. No abnormal fluid collection is identified. There are diverticula in the distal colon. There are degenerative changes in the mid to lower thoracic spine and lumbar spine. There is a compression deformity of one of the midthoracic vertebral bodies which was better evaluated on a CT of a thoracic spine dated October 21, 2019. Also a mild compression deformity of L3 which is unchanged. IMPRESSION: Postoperative changes. Chronic findings as described. No clear evidence of metastatic disease. Report Dictated on --- Final --- Dictated: 12/26/2019 3:50 pm Dictating Physician: MD DOZIER JOE M Signed Date and Time: 12/26/2019 3:54 pm Signed by: MD DOZIER JOE M Transcribed Date and Time: 12/26/2019 3:50 [facility], [place] [facility], [facility] Incoming Radiology Results From [facility] - 12/26/2019 3:55 PM EDT Patient Name: GONZALO DELUCA ---CT--- Exam Date/Time 12/26/2019 11:38:[address] Nonbill Guide Rad Therapy Ordering Physician MD WU, BURKE E Accession Number [id number] Reason For Exam Endometriod Ca Report CT of the abdomen and pelvis without intravenous contrast, 12/26/2019. Reason for examination: Endometrial cancer. Patient for radiation therapy. COMPARISON: October 27, 2019. TECHNIQUE: Large tejjv-zs-[id number] 3 mm axial images were obtained through the abdomen and pelvis for radiation therapy planning purposes. No intravenous or oral contrast was administered. FINDINGS: There are emphysematous changes with scattered areas of scarring or atelectasis in the visualized portions of the lungs. Evaluation is somewhat limited by motion. ABDOMEN: Evaluation is limited by technique, motion and artifact from the patient's arms. There is a nonspecific subcentimeter lesion in the left lobe of the liver which is unchanged and too small to accurately characterize. There is a nonobstructing 3 mm calculus in the upper pole of the left kidney. No mass or lymphadenopathy is appreciated. Pelvis: The uterus is not identified, and likely has been removed. No definite mass or lymphadenopathy is noted. No abnormal fluid collection is identified. There are diverticula in the distal colon. There are degenerative changes in the mid to lower thoracic spine and lumbar spine. There is a compression deformity of one of the midthoracic vertebral bodies which was better evaluated on a CT of a thoracic spine dated October 21, 2019. Also a mild compression deformity of L3 which is unchanged. IMPRESSION: Postoperative changes. Chronic findings as described. No clear evidence of metastatic disease. Report Dictated on --- Final --- Dictated: 12/26/2019 3:50 pm Dictating Physician: MD DOZIER JOE M Signed Date and Time: 12/26/2019 3:54 pm Signed by: MD DOZIER JOE M Transcribed Date and Time: 12/26/2019 3:50 [facility], [place] XA SPECIAL ANGIOGRAPHY PROCE DURE 12-19-2019 Patient Name: GONZALO DELUCA ---Special Procedures--- Exam Date/Time 12/19/2019 14:31:06 EDT Exam XA Special Angiography Procedure Ordering Physician ZIYAD MENENDEZ Accession Number [id number] Reason For Exam Mediport placement Report LEFT CHEST PORT PLACEMENT The benefits and risks of the procedure were discussed with the patient. The patient agreed to proceed. Conscious Sedation: An independent trained nurse under my supervision monitored the patient during the procedure and administered 2 mg of Versed and 100 ug of Fentanyl intravenously. The monitoring time was 45 minutes. Sterile technique was utilized. The skin was cleaned with 2% chlorhexidine. Sterile drapes were placed. I washed my hands prior to the procedure. I wore a cap, mask, sterile gown and sterile gloves during the procedure. Lidocaine was applied for local anesthesia. Using sterile technique and fluoroscopic guidance a micropuncture needle was inserted into the left subclavian vein and a wire advanced. The subcutaneous tract was dilated. A sheath was placed and then the catheter for the port advanced through the sheath. A pocket was created for the port and the catheter tunneled to the pocket. The catheter was trimmed and attached to the port. The port was flushed with heparinized saline. The port was secured in the pocket using 2-0 Vicryl. The skin was closed using 3-0 Vicryl and steri-strips. A chest radiograph after the procedure shows no evidence of a pneumothorax. The tip of the catheter is in the SVC. Fluoroscopic time: 12 seconds Fluoroscopic images: Zero IMPRESSION: Left chest port was placed. Report Dictated on --- Final --- Dictating Physician: MD GRIFFITH MALAY Signed Date and Time: 12/19/2019 2:31 pm Signed by: MD GRIFFITH MALAY Transcribed Date and Time: 12/19/2019 2:32 [facility]- [place], [place] [facility], [facility] Incoming Radiology Results From [facility] - 12/19/2019 2:33 PM EDT Patient Name: GONZALO DELUCA ---Special Procedures--- Exam Date/Time 12/19/2019 14:31:06 EDT Exam XA Special Angiography Procedure Ordering Physician ZIYAD MENENDEZ Accession Number [id number] Reason For Exam Mediport placement Report LEFT CHEST PORT PLACEMENT The benefits and risks of the procedure were discussed with the patient. The patient agreed to proceed. Conscious Sedation: An independent trained nurse under my supervision monitored the patient during the procedure and administered 2 mg of Versed and 100 ug of Fentanyl intravenously. The monitoring time was 45 minutes. Sterile technique was utilized. The skin was cleaned with 2% chlorhexidine. Sterile drapes were placed. I washed my hands prior to the procedure. I wore a cap, mask, sterile gown and sterile gloves during the procedure. Lidocaine was applied for local anesthesia. Using sterile technique and fluoroscopic guidance a micropuncture needle was inserted into the left subclavian vein and a wire advanced. The subcutaneous tract was dilated. A sheath was placed and then the catheter for the port advanced through the sheath. A pocket was created for the port and the catheter tunneled to the pocket. The catheter was trimmed and attached to the port. The port was flushed with heparinized saline. The port was secured in the pocket using 2-0 Vicryl. The skin was closed using 3-0 Vicryl and steri-strips. A chest radiograph after the procedure shows no evidence of a pneumothorax. The tip of the catheter is in the SVC. Fluoroscopic time: 12 seconds Fluoroscopic images: Zero IMPRESSION: Left chest port was placed. Report Dictated on --- Final --- Dictating Physician: MD GRIFFITH MALAY Signed Date and Time: 12/19/2019 2:31 pm Signed by: MD GRIFFITH MALAY Transcribed Date and Time: 12/19/2019 2:32 [facility], [place] XR CHEST PORTABLEon 12-19-19 Patient Name: GONZALO DELUCA ---Diagnostic Radiology--- Exam Date/Time 12/19/2019 14:50:00 EDT Exam CR Chest Portable Ordering Physician MD GRIFFITH MALAY Accession Number [id number] CPT4 Codes 68390 () Reason For Exam Med Port placement She is in ACS room 12. She can go home after Dr. Suhail rocha's the XRay. Please contact him at [phone] when it is available. Thanks Report CLINICAL INFORMATION: Cervical cancer. Mediport placement. Portable view of the chest at 1440 hours is provided and compared with a previous study dated 11/12/2019. FINDINGS: A left chest wall Mediport is now in place via the left subclavian vein. The distal tip is in the superior vena cava. The cardiac silhouette and mediastinum are otherwise within normal limits. The lungs are free of infiltrate or pleural effusion. There is no pneumothorax. IMPRESSION: 1. New left chest wall Mediport as described. The distal tip is in the SVC. 2. No pneumothorax. Report Dictated on --- Final --- Dictating Physician: MD HO JEFFREY Signed Date and Time: 12/19/2019 3:05 pm Signed by: MD HO JEFFREY Transcribed Date and Time: 12/19/2019 3:06 [place] [facility], [facility] Incoming [facility]iology [facility] - 12/19/2019 3:06 PM EDT Patient Name: GONZALO DELUCA ---Diagnostic Radiology--- Exam Date/Time 12/19/2019 14:50:00 EDT Exam CR Chest Portable Ordering Physician MD GRIFFITH MALAY Accession Number [id number] CPT4 Codes 08746 () Reason For Exam Med Port placement She is in ACS room 12. She can go home after Dr. Suhail rocha's the XRay. Please contact him at *[phone] when it is available. Thanks Report CLINICAL INFORMATION: Cervical cancer. Mediport placement. Portable view of the chest at 1440 hours is provided and compared with a previous study dated 11/12/2019. FINDINGS: A left chest wall Mediport is now in place via the left subclavian vein. The distal tip is in the superior vena cava. The cardiac silhouette and mediastinum are otherwise within normal limits. The lungs are free of infiltrate or pleural effusion. There is no pneumothorax. IMPRESSION: 1. New left chest wall Mediport as described. The distal tip is in the SVC. 2. No pneumothorax. Report Dictated on --- Final --- Dictating Physician: MD HO JEFFREY Signed Date and Time: 12/19/2019 3:05 pm Signed by: MD HO JEFFREY Transcribed Date and Time: 12/19/2019 3:06 [place] Basic Metabolic Panel w/ Ref familia to MGon 11-24-2019 Anion gap [Moles/Vol] 4 mmol/L [place] Calcium [Mass/Vol] 8.3 mg/dL Low 8.4 - 10. 4 mg/dL [place] Chloride [Moles/Vol] 102 mmol/L 98 - 10 7 mmol/L [place] CO2 [Moles/Vol] 27 mmol/L 22 - 30 mmol/L [place] Creatinine [Mass/Vol] 0.52 mg/dL 0.52 - 1.25 mg/dL [place] EGFR IF NonAfrican [place]ian >90.0 >60 mL/min [place] Comment on above: KDIGO guidelines pro vide the following GFR categories: Stage GFR(ml/min/1.73 m2) Terms G1 >=90 Normal or high G2 60-89 Mildly decreased* G3a 45-59 Mildly to moderately decreased G3b 30-44 Moderately to severely decreased G4 15-29 Severely decreased G5 <15 Kidney failure *Relative to young adult level. In the absence of evidence of kidney damage, neither GFR category G1 nor G2 fulfill the criteria for CKD. The CKD-EPI equation is validated in individuals 18 years of age and older. Currently the best equation for estimating glomerular filtration rate (GFR) from serum creatinine in children is the Bedside Vazquez equation. It is less accurate in patients with extremes of muscle mass, restriction of dietary protein, ingestion of creatine, extra-renal metabolism of creatinine, or treatment with medications that affect renal tubular creatinine secretion. GFR/1.73 sq M predicted among blacks MDRD (S/P/Bld) [Vol rate/Area] mL/min/{1.73_m2} >60 mL/min [place] Glucose [Mass/Vol] 84 mg/dL 70 - 100 mg/dL [place] Interpretation and review of laboratory results Abnormal [place] Potassium [Moles/Vol] 3.8 mmol/L 3.5 - 5.1 mmol/L [place] Sodium [Moles/Vol] 133 mmol/L Low 135 - 145 mmol/L [place] Urea nitrogen [Mass/Vol] 8 mg/dL 7 - 20 mg/d L [place] Test Performed by [facility], [address] [place] [id number] [place] [address] CBC Auto Differentialon 0 Absolute Baso # 0.0 10*3/uL 0 - 0.2 10*3/uL [place] Absolute Neut # 5.9 10*3/uL 1.8 - 7 10*3/uL [place] Basophils/100 WBC (Bld) 0.5 % 0 - 2 % [place] Eosinophils (Bld) [#/Vol] 0.2 10*3/uL 0 - 0.5 10*3/uL [place] Eosinophils/100 WBC (Bld) 2.6 % 1 - 6 % [place] Erythrocyte distribution width (RBC) [Ratio] 13.8 % 11.5 - 14.5 % [place] Granulocytes/100 WBC (Bld) 78.0 % 40 - 80 % [place] Hematocrit (Bld) [Volume fraction] 31.1 % Low 35 - 47 % [place] Hemoglobin (Bld) [Mass/Vol] 10.0 g/dL Low 11.7 - 16 g/dL [place] Interpretation and review of laboratory results Abnormal [place] Lymphocytes (Bld) [#/Vol] 0.9 10*3/uL Low 1 - 4.3 10*3/uL [place] Lymphocytes/100 WBC (Bld) 12.2 % Low 20 - 40 % [place] MCH (RBC) [Entitic mass] 30.5 pg 26 - 34 pg [place] MCHC (RBC) [Mass/Vol] 32.3 % 32 - 36 % [place] MCV (RBC) [Entitic vol] 94.5 fL 79 - 98 fL [place] Monocytes (Bld) [#/Vol] 0.5 10*3/uL 0 - 0.8 10*3/uL [place] Monocytes/100 WBC (Bld) 6.7 % 2 - 10 % [place] Platelet mean volume (Bld) [Entitic vol] 6.7 fL Low 7.4 - 10.4 fL [place] Platelets (Bld) [#/Vol] 378 10*3/uL 140 - 440 10*3/uL [place] RBC (Bld) [#/Vol] 3.29 10*6/uL Low 3.8 - 5.2 10*6/uL [place] WBC (Bld) [#/Vol] 7.6 10*3/uL 3.6 - 10.7 10*3/uL [place] Test Performed by [facility], [address], [place], [place] [address] [place] VL DUP CAROTID BILATERALon 0 11-24-2019 Real, [facility] Incoming Cardiology Results From [facility] - 11/24/2019 9:57 AM EDT [facility] ----- Carotid Duplex Report Ordering Physician: Aparan Walter Director Of Public Works: Alexa De León Interpreting Physician: Austyn Dee MD ----- Location: [facility] [place] ----- Indications: Right arm weakness. ----- Conclusions 1. Normal antegrade flow involving the left vertebral artery. 2. Normal antegrade flow involving the right vertebral artery. 3. Normal study involving the right internal carotid artery. 4. Antegrade flow noted in the right vertebral artery. 5. Normal study involving the left internal carotid artery. 6. Antegrade flow noted in the left vertebral artery. ----- History: Risk factors: Former tobacco use. ----- Study data: Complete carotid duplex study. Grayscale 2D imaging, color Doppler imaging, and spectral Doppler analysis. Location: Vascular laboratory. Objective: Diagnostic evaluation. Procedure: A vascular evaluation was performed with the patient in the supine position. Images were obtained using a [employer] E9 vascular ultrasound machine. ----- Findings Carotid/vertebral arteries: Right common carotid: The vessel is normal; it has no evidence of disease. Right internal carotid: The vessel is normal; it has no evidence of disease. Right external carotid: The vessel is normal; it has no evidence of disease. Right vertebral: The arterial flow direction is antegrade. Left vertebral: The arterial flow direction is antegrade. Left common carotid: The vessel is normal; it has no evidence of disease. Left internal carotid: The vessel is normal; it has no evidence of disease. Left external carotid: The vessel is normal; it has no evidence of disease. ----- Arterial flow: + +------ -----+ + +Location +PSV(cm/sec)+EDV(cm/se c)+ + +------ -----+ + +R CCA , prox +79 +19 + + +------ -----+ + +R CCA , mid +71 +20 + + +------ -----+ + +R CCA , distal+71 +22 + + +------ -----+ + +R ICA , prox +44 +18 + + +------ -----+ + +R ICA , mid +78 +27 + + +------ -----+ + +R ICA , distal+67 +27 + + +------ -----+ + +R ECA +51 +14 + + +------ -----+ + +R vertebral +50 +15 + + +------ -----+ + +R subclavian +136 +13 + + +------ -----+ + +L CCA , prox +84 +15 + + +------ -----+ + +L CCA , mid +59 +11 + + +------ -----+ + +L CCA , distal+50 +7 + + +------ -----+ + +L ICA , prox +43 +14 + + +------ -----+ + +L ICA , mid +64 +24 + + +------ -----+ + +L ICA , distal+88 +21 + + +------ -----+ + +L ECA +32 +9 + + +------ -----+ + +L vertebral +45 +16 + + +------ -----+ + +L subclavian +109 +9 + + +------ -----+ + Velocity ratios: + --+-----+-----+ + +R PSV+L PSV+ + --+-----+-----+ +Max ICA / Mid CCA Ratio+1.09 +1.49 + + --+-----+-----+ Prepared and electronically signed by Austyn Dee MD 11/24/2019 09:57 [facility]- [place], [facility] ----- Carotid Duplex Report Ordering Physician: Aparna Walter Director Of Public Works: Alexa De León Interpreting Physician: Austyn Dee MD ----- Location: [facility] [place] ----- Indications: Right arm weakness. ----- Conclusions 1. Normal antegrade flow involving the left vertebral artery. 2. Normal antegrade flow involving the right vertebral artery. 3. Normal study involving the right internal carotid artery. 4. Antegrade flow noted in the right vertebral artery. 5. Normal study involving the left internal carotid artery. 6. Antegrade flow noted in the left vertebral artery. ----- History: Risk factors: Former tobacco use. ----- Study data: Complete carotid duplex study. Grayscale 2D imaging, color Doppler imaging, and spectral Doppler analysis. Location: Vascular laboratory. Objective: Diagnostic evaluation. Procedure: A vascular evaluation was performed with the patient in the supine position. Images were obtained using a [employer] E9 vascular ultrasound machine. ----- Findings Carotid/vertebral arteries: Right common carotid: The vessel is normal; it has no evidence of disease. Right internal carotid: The vessel is normal; it has no evidence of disease. Right external carotid: The vessel is normal; it has no evidence of disease. Right vertebral: The arterial flow direction is antegrade. Left vertebral: The arterial flow direction is antegrade. Left common carotid: The vessel is normal; it has no evidence of disease. Left internal carotid: The vessel is normal; it has no evidence of disease. Left external carotid: The vessel is normal; it has no evidence of disease. ----- Arterial flow: + +------ -----+ + +Location +PSV(cm/sec)+EDV(cm/se c)+ + +------ -----+ + +R CCA , prox +79 +19 + + +------ -----+ + +R CCA , mid +71 +20 + + +------ -----+ + +R CCA , distal+71 +22 + + +------ -----+ + +R ICA , prox +44 +18 + + +------ -----+ + +R ICA , mid +78 +27 + + +------ -----+ + +R ICA , distal+67 +27 + + +------ -----+ + +R ECA +51 +14 + + +------ -----+ + +R vertebral +50 +15 + + +------ -----+ + +R subclavian +136 +13 + + +------ -----+ + +L CCA , prox +84 +15 + + +------ -----+ + +L CCA , mid +59 +11 + + +------ -----+ + +L CCA , distal+50 +7 + + +------ -----+ + +L ICA , prox +43 +14 + + +------ -----+ + +L ICA , mid +64 +24 + + +------ -----+ + +L ICA , distal+88 +21 + + +------ -----+ + +L ECA +32 +9 + + +------ -----+ + +L vertebral +45 +16 + + +------ -----+ + +L subclavian +109 +9 + + +------ -----+ + Velocity ratios: + --+-----+-----+ + +R PSV+L PSV+ + --+-----+-----+ +Max ICA / Mid CCA Ratio+1.09 +1.49 + + --+-----+-----+ Prepared and electronically signed by Austyn Dee MD 11/24/2019 09:57 [facility]- [place], [place] Basic Metabolic Panel w/ Ref familia to MGon 11-23-2019 Anion gap [Moles/Vol] 3 mmol/L [facility] [place], [place] Calcium [Mass/Vol] 8.6 mg/dL 8.4 - 10. 4 mg/dL [place] Chloride [Moles/Vol] 101 mmol/L 98 - 10 7 mmol/L [place] CO2 [Moles/Vol] 31 mmol/L High 22 - 30 mmol/L [place] Creatinine [Mass/Vol] 0.55 mg/dL 0.52 - 1.25 mg/dL [place] EGFR IF NonAfrican [place]ian >90.0 >60 mL/min [place] Comment on above: KDIGO guidelines pro vide the following GFR categories: Stage GFR(ml/min/1.73 m2) Terms G1 >=90 Normal or high G2 60-89 Mildly decreased* G3a 45-59 Mildly to moderately decreased G3b 30-44 Moderately to severely decreased G4 15-29 Severely decreased G5 <15 Kidney failure *Relative to young adult level. In the absence of evidence of kidney damage, neither GFR category G1 nor G2 fulfill the criteria for CKD. The CKD-EPI equation is validated in individuals 18 years of age and older. Currently the best equation for estimating glomerular filtration rate (GFR) from serum creatinine in children is the Bedside Vazquez equation. It is less accurate in patients with extremes of muscle mass, restriction of dietary protein, ingestion of creatine, extra-renal metabolism of creatinine, or treatment with medications that affect renal tubular creatinine secretion. GFR/1.73 sq M predicted among blacks MDRD (S/P/Bld) [Vol rate/Area] mL/min/{1.73_m2} >60 mL/min [place] Glucose [Mass/Vol] 87 mg/dL 70 - 100 mg/dL [place] Interpretation and review of laboratory results Abnormal [place] Potassium [Moles/Vol] 4.0 mmol/L 3.5 - 5.1 mmol/L [place] Sodium [Moles/Vol] 136 mmol/L 135 - 145 mmol/L [place] Urea nitrogen [Mass/Vol] 12 mg/dL 7 - 20 mg/d L [place] Test Performed by [facility], [address], [address] [facility] [place], [place] CBC Auto Differentialon 09-0 Absolute Baso # 0.0 10*3/uL 0 - 0.2 10*3/uL [place] Absolute Neut # 5.3 10*3/uL 1.8 - 7 10*3/uL [place] Basophils/100 WBC (Bld) 0.6 % 0 - 2 % [place] Eosinophils (Bld) [#/Vol] 0.3 10*3/uL 0 - 0.5 10*3/uL [place] Eosinophils/100 WBC (Bld) 3.6 % 1 - 6 % [place] Erythrocyte distribution width (RBC) [Ratio] 13.7 % 11.5 - 14.5 % [place] Granulocytes/100 WBC (Bld) 73.0 % 40 - 80 % [place] Hematocrit (Bld) [Volume fraction] 30.5 % Low 35 - 47 % [place] Hemoglobin (Bld) [Mass/Vol] 9.9 g/dL Low 11.7 - 16 g/dL [place] Interpretation and review of laboratory results Abnormal [place] Lymphocytes (Bld) [#/Vol] 1.1 10*3/uL 1 - 4.3 10*3/uL [place] Lymphocytes/100 WBC (Bld) 14.8 % Low 20 - 40 % [place] MCH (RBC) [Entitic mass] 30.5 pg 26 - 34 pg [place] MCHC (RBC) [Mass/Vol] 32.3 % 32 - 36 % [place] MCV (RBC) [Entitic vol] 94.3 fL 79 - 98 fL [place], [place] Monocytes (Bld) [#/Vol] 0.6 10*3/uL 0 - 0.8 10*3/uL [place] Monocytes/100 WBC (Bld) 8.0 % 2 - 10 % [place] Platelet mean volume (Bld) [Entitic vol] 6.6 fL Low 7.4 - 10.4 fL [facility]- [place], [place] Platelets (Bld) [#/Vol] 366 10*3/uL 140 - 440 10*3/uL [facility], [place] RBC (Bld) [#/Vol] 3.24 10*6/uL Low 3.8 - 5.2 10*6/uL [facility], [place] WBC (Bld) [#/Vol] 7.3 10*3/uL 3.6 - 10.7 10*3/uL [facility], [place] Test Performed by [facility], [address] [place], [place] [id number] [place] [address], [place] ECHO Complete 2D W Doppler W Coloron 11-23-2019 TRANSTHORACIC ECHOCARDIOGRAM PATIENT: Gonzalo Deluca STUDY DATE: 11/23/2019 : 1955 AGE: 64 HT/WT: 165.1 cm (65 70.8 kg in) (155.7 lb) GENDER: F BP: 124 / 79 LOCATION: [facility] PATIENT Inpatient [facility] STATUS: *ORDERING PHYSICIAN: * Lauren Serna *RN: * Alea Gomez *READING PHYSICIAN: Haritha Milligan *HOT BOX OPERATOR: * Jany Vital MD RD, [place] ----- INDICATIONS: Right hand weakness. ----- CONCLUSIONS SUMMARY: 1. Left ventricle: Systolic function is normal by the biplane method of disks. The estimated ejection fraction is 65%. There are no regional wall motion abnormalities. 2. Pulmonary arteries: Systolic pressure is within the normal range, estimated to be 27 mm Hg. 3. No significant valve disease. ----- STUDY DATA: Complete transthoracic echocardiogram. Procedure: Image quality was fair. The study was technically limited due to poor acoustic window availability. Intravenous imaging enhancement (Definity) was administered to opacify the chamber. Definity lot #: [id number]. M-mode, complete 2D, complete spectral Doppler, and color flow Doppler images were acquired and archived for permanent storage and are available for subsequent review. Study status: Routine. Patient status: Inpatient. ECG RHYTHM: NSR ----- FINDINGS LEFT VENTRICLE: The cavity size is normal. Wall thickness is normal. Systolic function is normal by the biplane method of disks. The estimated ejection fraction is 65%. There are no regional wall motion abnormalities. RIGHT VENTRICLE: The cavity size is normal. Systolic function is normal. Right ventricular systolic pressure is within the normal range. VENTRICULAR SEPTUM: There is no evidence of a ventricular septal defect. LEFT ATRIUM: The atrium is normal in size. RIGHT ATRIUM: The atrium is normal in size. ATRIAL SEPTUM: Color Doppler shows no shunt. MITRAL VALVE: Structurally normal valve. Doppler: There is no regurgitation. The peak diastolic gradient is 2 mm Hg. AORTIC VALVE: Structurally normal valve. Trileaflet. Doppler: There is no regurgitation. The peak systolic gradient is 6 mm Hg. The peak systolic velocity is 1.2 m/sec. TRICUSPID VALVE: Structurally normal valve. Doppler: There is trivial, less than 1+ regurgitation. PULMONIC VALVE: Structurally normal valve. Doppler: There is trivial, less than 1+ regurgitation. AORTA: Aortic root: The aortic root is trivially dilated. PULMONARY ARTERY: Systolic pressure is within the normal range, estimated to be 27 mm Hg. Main pulmonary artery: Normal. PERICARDIUM: There is no pericardial effusion. SYSTEMIC VEINS: Inferior vena cava: The vessel is normal. The IVC collapses by greater than 50% with inspiration. ----- Measurements Value 09/18/2016 Reference Aortic root ID 3.6 cm <4.0 Aortic root ID, STJ, ED 2.9 cm 2.0 - 3.2 Aortic root ID/bsa, STJ, ED 1.6 cm/m^2 1.1 - 1.9 Value 09/18/2016 Reference Ascending aorta ID, A-P, S 3.1 cm Ascending aorta ID/bsa, 1.7 cm/m^2 A-P, S Left ventricle Value 09/18/2016 Reference LV ID, ED 4.7 cm 4.4 3.8 - 5.2 LV ID, ES 3.5 cm 3.4 2.2 - 3.5 LV ID/bsa, ED 2.6 cm/m^2 2.3 - 3.1 LV ID/bsa, ES 1.9 cm/m^2 1.3 - 2.1 LV PW thickness, ED (H) 1.0 cm 1.3 0.6 - 0.9 LV PW/LV ID ratio, ED 0.22 LV wall mass (H) 182 g 66 - 150 LV wall mass/bsa (H) 100 g/m^2 44 - 88 Stroke volume/bsa, 1-p A2C 36.4 ml/m^2 LV end-diastolic volume, 104 ml 48 - 140 1-p A4C LV end-systolic volume, 1-p 39 ml 12 - 60 A4C LV end-diastolic volume, 102 ml 46 - 106 2-p LV end-systolic volume, 2-p 36 ml 14 - 42 LV ejection fraction, 2-p 65 % 54 - 74 LV E/e', lateral 8.2 5.5 LV E/e', medial 9.2 5 LV E/e', average 8.7 5.2 Ventricular septum Value 09/18/2016 Reference IVS thickness, ED (H) 1.1 cm 1.1 0.6 - 0.9 LVOT Value 09/18/2016 Reference LVOT ID, A-P 2.2 cm 2.0 LVOT mean velocity, S 0.7 m/sec LVOT peak gradient, S 4 mm Hg Stroke volume (SV), LVOT DP 81 ml Stroke index (SV/bsa), LVOT 45 ml/m^2 DP Aortic valve Value 09/18/2016 Reference Aortic valve peak velocity, 1.2 m/sec S Aortic peak gradient, S 6 mm Hg Left atrium Value 09/18/2016 Reference LA volume/bsa, ES, 2-p 31 ml/m^2 18 16 - 34 Mitral valve Value 09/18/2016 Reference Mitral E-wave peak velocity 0.8 m/sec 0.9 Mitral A-wave peak velocity 1.1 m/sec 1.3 Mitral deceleration time 210 ms 174 Mitral peak gradient, D 2 mm Hg 4 Mitral E/A ratio, peak 0.7 0.7 Tricuspid valve Value 09/18/2016 Reference Tricuspid regurg peak 2.4 m/sec <=2.8 velocity Tricuspid peak RV-RA 24 mm Hg gradient Right atrium Value 09/18/2016 Reference RA area, ES, A4C 14 cm^2 11 10 - 18 Right ventricle Value 09/18/2016 Reference RV ID, minor axis, ED, A4C 3.4 cm 2.5 - 4.1 base RV ID, minor axis, ED, A4C 2.7 cm 1.9 - 3.5 mid TAPSE, 2D 2.1 cm 1.7 - 3.1 RV s', lateral 10.0 cm/sec 13.4 6.0 - 13.4 Legend: (L) and (H) derrick values outside specified reference range. Electronically signed by Srini Vital MD 11/23/2019 11:59 Prior Signatures: [facility], [facility], [facility] Incoming Cardiology Results From [facility] - 11/23/2019 11:59 AM EDT TRANSTHORACIC ECHOCARDIOGRAM PATIENT: Gonzalo Deluca STUDY DATE: 11/23/2019 : 1955 AGE: 64 HT/WT: 165.1 cm (65 70.8 kg in) (155.7 lb) GENDER: F BP: 124 / 79 LOCATION: [facility] PATIENT Inpatient [facility] STATUS: *ORDERING PHYSICIAN: * Lauren Serna *RN: * Alea Gomez *READING PHYSICIAN: Haritha Milligan *HOT BOX OPERATOR: * Jany Vital MD [facility], [place] ----- INDICATIONS: Right hand weakness. ----- CONCLUSIONS SUMMARY: 1. Left ventricle: Systolic function is normal by the biplane method of disks. The estimated ejection fraction is 65%. There are no regional wall motion abnormalities. 2. Pulmonary arteries: Systolic pressure is within the normal range, estimated to be 27 mm Hg. 3. No significant valve disease. ----- STUDY DATA: Complete transthoracic echocardiogram. Procedure: Image quality was fair. The study was technically limited due to poor acoustic window availability. Intravenous imaging enhancement (Definity) was administered to opacify the chamber. Definity lot #: [id number]. M-mode, complete 2D, complete spectral Doppler, and color flow Doppler images were acquired and archived for permanent storage and are available for subsequent review. Study status: Routine. Patient status: Inpatient. ECG RHYTHM: NSR ----- FINDINGS LEFT VENTRICLE: The cavity size is normal. Wall thickness is normal. Systolic function is normal by the biplane method of disks. The estimated ejection fraction is 65%. There are no regional wall motion abnormalities. RIGHT VENTRICLE: The cavity size is normal. Systolic function is normal. Right ventricular systolic pressure is within the normal range. VENTRICULAR SEPTUM: There is no evidence of a ventricular septal defect. LEFT ATRIUM: The atrium is normal in size. RIGHT ATRIUM: The atrium is normal in size. ATRIAL SEPTUM: Color Doppler shows no shunt. MITRAL VALVE: Structurally normal valve. Doppler: There is no regurgitation. The peak diastolic gradient is 2 mm Hg. AORTIC VALVE: Structurally normal valve. Trileaflet. Doppler: There is no regurgitation. The peak systolic gradient is 6 mm Hg. The peak systolic velocity is 1.2 m/sec. TRICUSPID VALVE: Structurally normal valve. Doppler: There is trivial, less than 1+ regurgitation. PULMONIC VALVE: Structurally normal valve. Doppler: There is trivial, less than 1+ regurgitation. AORTA: Aortic root: The aortic root is trivially dilated. PULMONARY ARTERY: Systolic pressure is within the normal range, estimated to be 27 mm Hg. Main pulmonary artery: Normal. PERICARDIUM: There is no pericardial effusion. SYSTEMIC VEINS: Inferior vena cava: The vessel is normal. The IVC collapses by greater than 50% with inspiration. ----- Measurements Value 09/18/2016 Reference Aortic root ID 3.6 cm <4.0 Aortic root ID, STJ, ED 2.9 cm 2.0 - 3.2 Aortic root ID/bsa, STJ, ED 1.6 cm/m^2 1.1 - 1.9 Value 09/18/2016 Reference Ascending aorta ID, A-P, S 3.1 cm Ascending aorta ID/bsa, 1.7 cm/m^2 A-P, S Left ventricle Value 09/18/2016 Reference LV ID, ED 4.7 cm 4.4 3.8 - 5.2 LV ID, ES 3.5 cm 3.4 2.2 - 3.5 LV ID/bsa, ED 2.6 cm/m^2 2.3 - 3.1 LV ID/bsa, ES 1.9 cm/m^2 1.3 - 2.1 LV PW thickness, ED (H) 1.0 cm 1.3 0.6 - 0.9 LV PW/LV ID ratio, ED 0.22 LV wall mass (H) 182 g 66 - 150 LV wall mass/bsa (H) 100 g/m^2 44 - 88 Stroke volume/bsa, 1-p A2C 36.4 ml/m^2 LV end-diastolic volume, 104 ml 48 - 140 1-p A4C LV end-systolic volume, 1-p 39 ml 12 - 60 A4C LV end-diastolic volume, 102 ml 46 - 106 2-p LV end-systolic volume, 2-p 36 ml 14 - 42 LV ejection fraction, 2-p 65 % 54 - 74 LV E/e', lateral 8.2 5.5 LV E/e', medial 9.2 5 LV E/e', average 8.7 5.2 Ventricular septum Value 09/18/2016 Reference IVS thickness, ED (H) 1.1 cm 1.1 0.6 - 0.9 LVOT Value 09/18/2016 Reference LVOT ID, A-P 2.2 cm 2.0 LVOT mean velocity, S 0.7 m/sec LVOT peak gradient, S 4 mm Hg Stroke volume (SV), LVOT DP 81 ml Stroke index (SV/bsa), LVOT 45 ml/m^2 DP Aortic valve Value 09/18/2016 Reference Aortic valve peak velocity, 1.2 m/sec S Aortic peak gradient, S 6 mm Hg Left atrium Value 09/18/2016 Reference LA volume/bsa, ES, 2-p 31 ml/m^2 18 16 - 34 Mitral valve Value 09/18/2016 Reference Mitral E-wave peak velocity 0.8 m/sec 0.9 Mitral A-wave peak velocity 1.1 m/sec 1.3 Mitral deceleration time 210 ms 174 Mitral peak gradient, D 2 mm Hg 4 Mitral E/A ratio, peak 0.7 0.7 Tricuspid valve Value 09/18/2016 Reference Tricuspid regurg peak 2.4 m/sec <=2.8 velocity Tricuspid peak RV-RA 24 mm Hg gradient Right atrium Value 09/18/2016 Reference RA area, ES, A4C 14 cm^2 11 10 - 18 Right ventricle Value 09/18/2016 Reference RV ID, minor axis, ED, A4C 3.4 cm 2.5 - 4.1 base RV ID, minor axis, ED, A4C 2.7 cm 1.9 - 3.5 mid TAPSE, 2D 2.1 cm 1.7 - 3.1 RV s', lateral 10.0 cm/sec 13.4 6.0 - 13.4 Legend: (L) and (H) derrick values outside specified reference range. Electronically signed by Srini Vital MD 11/23/2019 11:59 Prior Signatures: [place], [place] CBCon 11-22-2019 Erythrocyte distribution width (RBC) [Ratio] 13.8 % 11.5 - 14.5 % [place] Hematocrit (Bld) [Volume fraction] 29.9 % Low 35 - 47 % [place] Hemoglobin (Bld) [Mass/Vol] 9.6 g/dL Low 11.7 - 16 g/dL [place] Interpretation and review of laboratory results Abnormal [place] MCH (RBC) [Entitic mass] 30.3 pg 26 - 34 pg [place] MCHC (RBC) [Mass/Vol] 31.9 % Low 32 - 36 % [facility] [place] MCV (RBC) [Entitic vol] 94.9 fL 79 - 98 fL [place] Platelet mean volume (Bld) [Entitic vol] 7.2 fL Low 7.4 - 10.4 fL [place] Platelets (Bld) [#/Vol] 380 10*3/uL 140 - 440 10*3/uL [place] RBC (Bld) [#/Vol] 3.15 10*6/uL Low 3.8 - 5.2 10*6/uL [place] WBC (Bld) [#/Vol] 8.9 10*3/uL 3.6 - 10.7 10*3/uL [place] Test [facility] by [facility], [address], [place], [place] [id number] [place] [address] Comprehensive Metabolic Pane l w/ Reflex to MGon 11-22-2019 Albumin [Mass/Vol] 2.8 g/dL Low 3.5 - 5 g/dL [place] ALP [Catalytic activity/Vol] 77 U/L 38 - 126 U/L [place] ALT [Catalytic activity/Vol] 20 U/L 0 - 34 U/L [place] Comment on above: The ALT test is perf ormed by an updated assay method. Please note that the reference intervals have been changed and are now sex specific. Anion gap [Moles/Vol] 4 mmol/L [place] AST [Catalytic activity/Vol] 52 U/L High 15 - 46 U/L [place] Bilirubin Ql (U) 0.2 mg/dL 0.2 - 1.3 mg/dL [place] Calcium [Mass/Vol] 8.3 mg/dL Low 8.4 - 10. 4 mg/dL [place] Chloride [Moles/Vol] 103 mmol/L 98 - 10 7 mmol/L [place] CO2 [Moles/Vol] 33 mmol/L High 22 - 30 mmol/L [place] Creatinine [Mass/Vol] 0.54 mg/dL 0.52 - 1.25 mg/dL [place] EGFR IF NonAfrican [place]ian >90.0 >60 mL/min [place] Comment on above: KDIGO guidelines pro vide the following GFR categories: Stage GFR(ml/min/1.73 m2) Terms G1 >=90 Normal or high G2 60-89 Mildly decreased* G3a 45-59 Mildly to moderately decreased G3b 30-44 Moderately to severely decreased G4 15-29 Severely decreased G5 <15 Kidney failure *Relative to young adult level. In the absence of evidence of kidney damage, neither GFR category G1 nor G2 fulfill the criteria for CKD. The CKD-EPI equation is validated in individuals 18 years of age and older. Currently the best equation for estimating glomerular filtration rate (GFR) from serum creatinine in children is the Bedside Vazquez equation. It is less accurate in patients with extremes of muscle mass, restriction of dietary protein, ingestion of creatine, extra-renal metabolism of creatinine, or treatment with medications that affect renal tubular creatinine secretion. GFR/1.73 sq M predicted among blacks MDRD (S/P/Bld) [Vol rate/Area] mL/min/{1.73_m2} >60 mL/min [place] Glucose [Mass/Vol] 99 mg/dL 70 - 100 mg/dL [place] Interpretation and review of laboratory results Abnormal [place] Potassium [Moles/Vol] 3.1 mmol/L Low 3.5 - 5.1 mmol/L [place] Protein [Mass/Vol] 5.4 g/dL Low 6.3 - 8.2 g/dL [place] Sodium [Moles/Vol] 140 mmol/L 135 - 145 mmol/L [place] Urea nitrogen [Mass/Vol] 11 mg/dL 7 - 20 mg/d L [place] EKG 12 Lead if not already d one by divya 11-22-2019 [facility] Incoming Cardiology Results From [facility] - 11/22/2019 12:02 PM EDT [facility] Test Date: 2019-11-21 Pat Name: Gonzalo Deluca Department: 01 Room: 454 Gender: F [employer]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 : 1955 Requested By: RAY BARROSO Order Number: [id number] Reading MD: Vicente Brown Measurements Intervals [place] Rate: 89 P: 42 MI: 152 QRS: -20 QRSD: 100 T: 18 QT: 376 QTc: 458 Interpretive Statements SINUS RHYTHM Compared to ECG 08/02/2019 18:19:40 Ventricular premature complex(es) no longer present Electronically Signed On 11-22-2019 12:01:36 EDT by [facility] Test Date: 2019-11-21 Pat Name: Gonzlao Deluca Department: 01 Room: 454 Gender: F [employer]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 : 1955 Requested By: RAY BARROSO Order Number: [id number] Reading : Vicente [employer] Measurements Intervals [place] Rate: 89 P: 42 MI: 152 QRS: -20 QRSD: 100 T: 18 QT: 376 QTc: 458 Interpretive Statements SINUS RHYTHM Compared to ECG 08/02/2019 18:19:40 Ventricular premature complex(es) no longer present Electronically Signed On 11-22-2019 12:01:36 EDT by [facility] [place] Hemoglobin A1con 11-22-2019 eAG 100 mg/dL [place] HbA1c (Bld) [Mass fraction] 5.1 % 4 - 6 % [place] Comment on above: --HgbA1C levels may not be accurate in patients who have renal disease, received recent blood transfusions, are anemic, or who have dyshemoglobinemia. Test Performed by [facility], [address] Lipid panel - fastingon Cholesterol [Mass/Vol] 132 mg/dL <200 Me [place], [place] Cholesterol in HDL [Mass/Vol] 41 mg/dL 40 - 60 mg/dL [place] Cholesterol in LDL [Mass/Vol] 68 mg/dL <100 [place] Cholesterol.total/Choles terol in HDL [Mass ratio] 3 {ratio} [place] Comment on above: Ref Range: < 3 Low Risk for CHD 3-6 Mod Risk for CHD > 6 High Risk for CHD Triglyceride [Mass/Vol] 116 mg/dL <150 M [place], [place] Magnesiumon 11-22-2019 Magnesium [Mass/Vol] 1.9 mg/dL 1.6 - 2 .3 mg/dL [place] Test Performed by [facility], [address] [place], [address] Otheron 11-22-2019 Test Performed by [facility], [address] VL LOWER EXTREMITY VENOUS RI GHT [id number] 11-22-2019 [facility] ----- Right Lower Extremity Venous Duplex Report Ordering Physician: Lauren Serna Director Of Public Works: Eh Rojas Interpreting Physician: Josef Cochran ----- Location: [facility] ----- Indications: Right sided swelling. ----- Conclusions 1. There is no evidence of acute deep or superficial venous thrombosis noted in the right lower extremity. 2. The left common femoral vein fully compresses and demonstrates normal venous flow. ----- History: Risk factors: Hypercoagulable state, recent surgery. ----- Study data: Right lower extremity venous duplex evaluation. Right lateral evaluation with grayscale 2D imaging, color Doppler imaging, and spectral Doppler analysis. Location: Bedside. Objective: Diagnostic evaluation. Procedure: A vascular evaluation was performed with the patient in the supine position. Images were obtained using a [employer] E9 vascular ultrasound machine. ----- Venous flow and imaging: + ----+-------+--------- ----+ +Location +Overall+Properties + + ----+-------+--------- ----+ +R CFV +Patent +Normal phasicity; spontaneous; + + + +normal augmentation; compressible + + ----+-------+--------- ----+ +R saphenofemoral junction+Patent +Compressible + + ----+-------+--------- ----+ +R profunda femoral +Patent +Normal phasicity; spontaneous; + + + +normal augmentation + + ----+-------+--------- ----+ +R FV - prox. +Patent +Compressible + + ----+-------+--------- ----+ +R FV - mid +Patent +Normal phasicity; spontaneous; + + + +normal augmentation; compressible + + ----+-------+--------- ----+ +R FV - distal +Patent +Compressible + + ----+-------+--------- ----+ +R popliteal +Patent +Normal phasicity; spontaneous; + + + +normal augmentation; compressible + + ----+-------+--------- ----+ +R gastrocnemius +Patent +Compressible + + ----+-------+--------- ----+ +R PTV +Patent +Compressible + + ----+-------+--------- ----+ +R peroneal +Patent +Compressible + + ----+-------+--------- ----+ +R soleal +Patent +Compressible + + ----+-------+--------- ----+ +R GSV +Patent +Compressible + + ----+-------+--------- ----+ +L CFV +Patent +Normal phasicity; spontaneous; + + + +normal augmentation; compressible + + ----+-------+--------- ----+ Prepared and electronically signed by Josef Cochran 11/22/2019 14:37 [facility] [place], [place] Real, [facility] Incoming Cardiology Results From Jessika/Anny - 11/22/2019 2:37 PM EDT [facility] ----- Right Lower Extremity Venous Duplex Report Ordering Physician: Lauren Serna Director Of Public Works: Eh Rojas Interpreting Physician: Josef Cochran ----- Location: [facility] ----- Indications: Right sided swelling. ----- Conclusions 1. There is no evidence of acute deep or superficial venous thrombosis noted in the right lower extremity. 2. The left common femoral vein fully compresses and demonstrates normal venous flow. ----- History: Risk factors: Hypercoagulable state, recent surgery. ----- Study data: Right lower extremity venous duplex evaluation. Right lateral evaluation with grayscale 2D imaging, color Doppler imaging, and spectral Doppler analysis. Location: Bedside. Objective: Diagnostic evaluation. Procedure: A vascular evaluation was performed with the patient in the supine position. Images were obtained using a [employer] E9 vascular ultrasound machine. ----- Venous flow and imaging: + ----+-------+--------- ----+ +Location +Overall+Properties + + ----+-------+--------- ----+ +R CFV +Patent +Normal phasicity; spontaneous; + + + +normal augmentation; compressible + + ----+-------+--------- ----+ +R saphenofemoral junction+Patent +Compressible + + ----+-------+--------- ----+ +R profunda femoral +Patent +Normal phasicity; spontaneous; + + + +normal augmentation + + ----+-------+--------- ----+ +R FV - prox. +Patent +Compressible + + ----+-------+--------- ----+ +R FV - mid +Patent +Normal phasicity; spontaneous; + + + +normal augmentation; compressible + + ----+-------+--------- ----+ +R FV - distal +Patent +Compressible + + ----+-------+--------- ----+ +R popliteal +Patent +Normal phasicity; spontaneous; + + + +normal augmentation; compressible + + ----+-------+--------- ----+ +R gastrocnemius +Patent +Compressible + + ----+-------+--------- ----+ +R PTV +Patent +Compressible + + ----+-------+--------- ----+ +R peroneal +Patent +Compressible + + ----+-------+--------- ----+ +R soleal +Patent +Compressible + + ----+-------+--------- ----+ +R GSV +Patent +Compressible + + ----+-------+--------- ----+ +L CFV +Patent +Normal phasicity; spontaneous; + + + +normal augmentation; compressible + + ----+-------+--------- ----+ Prepared and electronically signed by Josef Cochran 11/22/2019 14:37 [place], [place] APTTon 11-21-2019 aPTT Coag (Bld) [Time] 23.6 s 20 - 30.5 s [place], [place] Comment on above: NOTE: The therapeuti c time for Heparin anticoagulation, based on Xa activity inhibition, is an APTT of 46-80 seconds. CBC Auto Differentialon Absolute Baso # 0.1 10*3/uL 0 - 0.2 10*3/uL [place] Absolute Neut # 4.8 10*3/uL 1.8 - 7 10*3/uL [place] Basophils/100 WBC (Bld) 0.7 % 0 - 2 % [place] Eosinophils (Bld) [#/Vol] 0.3 10*3/uL 0 - 0.5 10*3/uL [place] Eosinophils/100 WBC (Bld) 3.7 % 1 - 6 % [place] Erythrocyte distribution width (RBC) [Ratio] 14.0 % 11.5 - 14.5 % [place] Granulocytes/100 WBC (Bld) 71.5 % 40 - 80 % [place] Hematocrit (Bld) [Volume fraction] 34.5 % Low 35 - 47 % [place] Hemoglobin (Bld) [Mass/Vol] 11.0 g/dL Low 11.7 - 16 g/dL [place] Interpretation and review of laboratory results Abnormal [place] Lymphocytes (Bld) [#/Vol] 1.1 10*3/uL 1 - 4.3 10*3/uL [place] Lymphocytes/100 WBC (Bld) 16.9 % Low 20 - 40 % [place] MCH (RBC) [Entitic mass] 30.4 pg 26 - 34 pg [place] MCHC (RBC) [Mass/Vol] 32.0 % 32 - 36 % [place] MCV (RBC) [Entitic vol] 95.1 fL 79 - 98 fL [place] Monocytes (Bld) [#/Vol] 0.5 10*3/uL 0 - 0.8 10*3/uL [place] Monocytes/100 WBC (Bld) 7.2 % 2 - 10 % [place] Platelet mean volume (Bld) [Entitic vol] 6.7 fL Low 7.4 - 10.4 fL [place] Platelets (Bld) [#/Vol] 438 10*3/uL 140 - 440 10*3/uL [place] RBC (Bld) [#/Vol] 3.63 10*6/uL Low 3.8 - 5.2 10*6/uL [place] WBC (Bld) [#/Vol] 6.8 10*3/uL 3.6 - 10.7 10*3/uL [place] Test Performed by [facility], [address], [place], [place] [address] [place] [address] HEAD WO CONTRASTon 2019 Patient Name: GONZALO DELUCA ---CT--- Exam Date/Time 11/21/2019 16:56:[address] Head or Brain w/o Contrast Ordering Physician RAY ALLEN Accession Number [id number] CPT4 Codes 74230 () Reason For Exam right arm weakness Report CT BRAIN WITHOUT CONTRAST CLINICAL INDICATION: right arm weakness TECHNIQUE: CT scan of the brain without IV contrast. Multiplanar reformations. COMPARISON: None. FINDINGS: No apparent mass or mass effect, hemorrhage, midline shift or hydrocephalus. No evidence of acute cortical infarct. No abnormal, extra-axial fluid or air collection. Patchy low density in the periventricular and subcortical white matter is nonspecific, but may relate to chronic small vessel ischemic change. Small focus of encephalomalacia suggesting old ischemic change or infarct(s) in the right occipital region. Age-related volume loss. Osseous calvarium grossly intact. IMPRESSION: 1. No acute intracranial findings. 2. Chronic ischemic and atrophic changes. Report Dictated on Workstation: [id number] --- Final --- Dictating Physician: MD AVILA WENDELL Signed Date and Time: 11/21/2019 5:08 pm Signed by: MD AVILA WENDELL Transcribed Date and Time: 11/21/2019 5:09 [place], [place] Real, [facility] Incoming Radiology Results From [employer] - 11/21/2019 5:09 PM EDT Patient Name: GONZALO DELUCA ---CT--- Exam Date/Time 11/21/2019 16:56:[address] Head or Brain w/o Contrast Ordering Physician RAY ALLEN Accession Number [id number] CPT4 Codes 20572 () Reason For Exam right arm weakness Report CT BRAIN WITHOUT CONTRAST CLINICAL INDICATION: right arm weakness TECHNIQUE: CT scan of the brain without IV contrast. Multiplanar reformations. COMPARISON: None. FINDINGS: No apparent mass or mass effect, hemorrhage, midline shift or hydrocephalus. No evidence of acute cortical infarct. No abnormal, extra-axial fluid or air collection. Patchy low density in the periventricular and subcortical white matter is nonspecific, but may relate to chronic small vessel ischemic change. Small focus of encephalomalacia suggesting old ischemic change or infarct(s) in the right occipital region. Age-related volume loss. Osseous calvarium grossly intact. IMPRESSION: 1. No acute intracranial findings. 2. Chronic ischemic and atrophic changes. Report Dictated on Workstation: [id number] --- Final --- Dictating Physician: MD AVLIA WENDELL Signed Date and Time: 11/21/2019 5:08 pm Signed by: MD AVILA WENDELL Transcribed Date and Time: 11/21/2019 5:09 [place] Comprehensive Metabolic Pane l w/ Reflex to MGon 11-21-2019 Albumin [Mass/Vol] 3.3 g/dL Low 3.5 - 5 g/dL [place] ALP [Catalytic activity/Vol] 96 U/L 38 - 126 U/L [place] ALT [Catalytic activity/Vol] 23 U/L 0 - 34 U/L [place] Comment on above: The ALT test is perf ormed by an updated assay method. Please note that the reference intervals have been changed and are now sex specific. Anion gap [Moles/Vol] 4 mmol/L [place] AST [Catalytic activity/Vol] 37 U/L 15 - 46 U/L [place] Bilirubin Ql (U) 0.1 mg/dL Low 0.2 - 1.3 mg/dL [place] Calcium [Mass/Vol] 9.1 mg/dL 8.4 - 10. 4 mg/dL [place] Chloride [Moles/Vol] 100 mmol/L 98 - 10 7 mmol/L [place] CO2 [Moles/Vol] 37 mmol/L High 22 - 30 mmol/L [place] Creatinine [Mass/Vol] 0.66 mg/dL 0.52 - 1.25 mg/dL [place] EGFR IF NonAfrican Gambian >90.0 >60 mL/min [place] Comment on above: KDIGO guidelines pro vide the following GFR categories: Stage GFR(ml/min/1.73 m2) Terms G1 >=90 Normal or high G2 60-89 Mildly decreased* G3a 45-59 Mildly to moderately decreased G3b 30-44 Moderately to severely decreased G4 15-29 Severely decreased G5 <15 Kidney failure *Relative to young adult level. In the absence of evidence of kidney damage, neither GFR category G1 nor G2 fulfill the criteria for CKD. The CKD-EPI equation is validated in individuals 18 years of age and older. Currently the best equation for estimating glomerular filtration rate (GFR) from serum creatinine in children is the Bedside Vazquez equation. It is less accurate in patients with extremes of muscle mass, restriction of dietary protein, ingestion of creatine, extra-renal metabolism of creatinine, or treatment with medications that affect renal tubular creatinine secretion. GFR/1.73 sq M predicted among blacks MDRD (S/P/Bld) [Vol rate/Area] mL/min/{1.73_m2} >60 mL/min [place] Glucose [Mass/Vol] 93 mg/dL 70 - 100 mg/dL [place] Interpretation and review of laboratory results Abnormal [place] Potassium [Moles/Vol] 3.4 mmol/L Low 3.5 - 5.1 mmol/L [place] Protein [Mass/Vol] 6.3 g/dL 6.3 - 8.2 g/dL [place] Sodium [Moles/Vol] 141 mmol/L 135 - 145 mmol/L [place] Urea nitrogen [Mass/Vol] 12 mg/dL 7 - 20 mg/d L [place] Test Performed by [facility], [address] [place], [place] [id number] [place] [address] Magnesiumon 11-21-2019 Magnesium [Mass/Vol] 2.0 mg/dL 1.6 - 2 .3 mg/dL [place] Test Performed by [facility], [address] [place], [place] [address] [facility] [place] Otheron 11-21-2019 [facility], [address], [address] POCT Glucoseon 11-21-2019 Glucose [Mass/Vol] 94 mg/dL 70 - 100 mg/dL [place] Comment on above: Test performed by ucose meter. Results may be 10%-15% lower than serum/plasma values. (CLIA ID [id number]) Test Performed by [facility], [address] [place] [address] Protime-INRon 11-21-2019 INR Coag (PPP) [Relative time] 1.0 {INR} [place] Comment on above: Recommended Anticoag ulant Therapy: SEE BELOW ----- INR of 2.0 - 3.0 : - Prophylaxis of Venous Thrombosis (high-risk surgery) - Treatment of Venous Thrombosis - Treatment of Pulmonary Embolism (Includes tissue heart valves, Acute Myocardial Infarction to prevent systemic embolism, Valvular Heart Disease, and Atrial Fibrillation) ----- INR of 2.5 - 3.5 : - Mechanical Prosthetic Valves (high risk) - If oral anticoagulant therapy is used to prevent Myocardial Infarction PT Coag (PPP) [Time] 10.1 s 9 - 12 s [place], [place] Comment on above: . Troponinon 11-21-2019 Troponin I.cardiac [Mass/Vol] ng/mL 0 - 0.034 ng/mL [place] Comment on above: . Test Performed by [facility], [address] [place] [address] [id number] 11-13-2019 SARS-CoV-2 SARS-CoV-2 --> Statu s: F Not Detected Expected Result: Not Detected _ Real-time, RT-PCR performed on the [employer] System by the [facility]. Negative results do not preclude SARS-CoV-2 infection and should not be used as the sole basis for treatment or other patient management decisions. This assay was developed by [employer] and [employer] and distributed under an Emergency Use Authorization (EUA) granted by the FDA for the qualitative detection of SARS-CoV-2 nucleic acid. Results were determined from a pool consisting of specimens from additional patients. This test was modified, and its performance characteristics, showing minimal loss of sensitivity, have been validated by the [facility]. Approval is pending review by the U. S. Food and Drug Administration. If symptoms are severe and persist, testing a new specimen may be warranted. Additionally, IgG testing may be considered for patients more than 7-10 days post onset of symptoms. Expected Result: Not Detected _ Real-time, RT-PCR performed on the [employer] System by the [facility]. Negative results do not preclude SARS-CoV-2 infection and should not be used as the sole basis for treatment or other patient management decisions. This assay was developed by [employer] and [employer] and distributed under an Emergency Use Authorization (EUA) granted by the FDA for the qualitative detection of SARS-CoV-2 nucleic acid. Results were determined from a pool consisting of specimens from additional patients. This test was modified, and its performance characteristics, showing minimal loss of sensitivity, have been validated by the [facility]. Approval is pending review by the U. S. Food and Drug Administration. If symptoms are severe and persist, testing a new specimen may be warranted. Additionally, IgG testing may be considered for patients more than 7-10 days post onset of symptoms. Normal [facility] Comment on above: Order Comment: Speci men Source Comment:Nasopharyngeal Swab Performed By: #### C OVID ####[facility] [place], [place] Basic Metabolic Panelon - Calcium [Mass/Vol] 9.2 mg/dL Normal 8.4-10.4 [facility] Comment on above: Performed By: #### B MP3, HEMDF #### [facility] [address] [place], [place] Glucose [Mass/Vol] 120 mg/dL High 70-100 [facility] Comment on above: Performed By: #### B MP3, HEMDF #### [facility] [address] [place], [place] Urea nitrogen [Mass/Vol] 9 mg/dL Normal 7-20 [facility] Comment on above: Performed By: #### B MP3, HEMDF #### [facility] [address] [place], [place] Anion gap [Moles/Vol] 7 Normal [facility] Comment on above: Performed By: #### B MP3, HEMDF #### [facility] [address] [place], [place] CO2 [Moles/Vol] 31 mmol/L High 22-30 [facility] Comment on above: Performed By: #### B MP3, HEMDF #### [facility] [address] [place], [place] Creatinine [Mass/Vol] 0.49 mg/dL Low 0.52-1.25 [facility] Comment on above: Performed By: #### B MP3, HEMDF #### [facility] [address] [place], [place] GFR/1.73 sq M predicted among blacks MDRD (S/P/Bld) [Vol rate/Area] mL/min/{1.73_m2} Normal >60 [facility] Comment on above: Performed By: #### B MP3, HEMDF #### [facility] [address] [place], [place] GFR/1.73 sq M predicted among non-blacks MDRD (S/P/Bld) [Vol rate/Area] mL/min/{1.73_m2} Normal >60 [facility] Comment on above: Result Comment: KDIG O guidelines provide the following GFR categories: Stage GFR(ml/min/1.73 m2) Terms G1 >=90 Normal or high G2 60-89 Mildly decreased* G3a 45-59 Mildly to moderately decreased G3b 30-44 Moderately to severely decreased G4 15-29 Severely decreased G5 <15 Kidney failure *Relative to young adult level. In the absence of evidence of kidney damage, neither GFR category G1 nor G2 fulfill the criteria for CKD. The CKD-EPI equation is validated in individuals 18 years of age and older. Currently the best equation for estimating glomerular filtration rate (GFR) from serum creatinine in children is the Bedside Vazquez equation. It is less accurate in patients with extremes of muscle mass, restriction of dietary protein, ingestion of creatine, extra-renal metabolism of creatinine, or treatment with medications that affect renal tubular creatinine secretion. Performed By: #### B MP3, HEMDF #### [facility] [address] [place], [place] Potassium [Moles/Vol] 2.9 mmol/L Low 3.5-5.1 [facility] Comment on above: Performed By: #### B MP3, HEMDF #### [facility] [address] [place], [place] Chloride [Moles/Vol] 103 mmol/L Normal 98-107 [facility] Comment on above: Performed By: #### B MP3, HEMDF #### [facility] [address] [place], [place] Sodium [Moles/Vol] 140 mmol/L Normal 135-145 [facility] Comment on above: Performed By: #### B MP3, HEMDF #### [facility] [address] [place], [place] CR Chest Portableon 11-12-19 20 CR Chest Portable Patient Name: GONZALO DELUCA Diagnostic Radiology Exam Date/Time 11/12/2019 20:13:01 EDT Exam CR Chest Portable Ordering Physician NADEEM CASEY JENNIFER L. Accession Number [id number] CPT4 Codes 63249 () Reason For Exam cough and fever Report PORTABLE CHEST: INDICATION: Cough and fever COMPARISON: 08/02/2019 Obtained at 2011 hours. A single portable AP radiograph of the chest was obtained. The heart is normal in size. The mediastinal silhouette is normal. The lungs are clear. There are no effusions or infiltrates. There is no pleural thickening. The osseous structures are unremarkable. IMPRESSION: No acute process. Report Dictated on Workstation: [id number] Final Dictated: 11/12/2019 8:15 pm Dictating Physician: DO CHAVARRIA ALFRED Signed Date and Time: 11/12/2019 8:16 pm Signed by: DO CHAVARRIA ALFRED Transcribed Date and Time: 11/12/2019 8:15 Normal [facility] Hemogram w/ Autodiffon 11-11 Abs Baso Cnt 0.1 10*3/uL Normal 0.0-0.2 [facility] Comment on above: Performed By: #### B MP3, HEMDF #### [facility] [address] [place], [place] Abs Neutrophile Cnt 12.0 10*3/uL High 1.8-7.0 [facility] Comment on above: Performed By: #### B MP3, HEMDF #### [facility] [address] [place], [place] Basophils/100 WBC (Bld) 0.4 % Normal 0.0-2.0 [facility] Comment on above: Performed By: #### B MP3, HEMDF #### [facility] [address] [place], [place] Eosinophils (Bld) [#/Vol] 0.2 10*3/uL Normal 0.0-0.5 [facility] Comment on above: Performed By: #### B MP3, HEMDF #### [facility] [address] [place], [place] Eosinophils/100 WBC (Bld) 1.6 % Normal 1.0-6.0 [facility] Comment on above: Performed By: #### B MP3, HEMDF #### [facility] [address] [place], [place] Erythrocyte distribution width (RBC) [Ratio] 14.2 % Normal 11.5-14.5 [facility] Comment on above: Performed By: #### B MP3, HEMDF #### [facility] [address] [place], [place] Granulocytes/100 WBC (Bld) 81.3 % High 40.0-80.0 [facility] Comment on above: Performed By: #### B MP3, HEMDF #### [facility] [address] [place], [place] Hematocrit (Bld) [Volume fraction] 38.0 % Normal 35.0-47.0 [facility] Comment on above: Performed By: #### B MP3, HEMDF #### [facility] [address] [place], [place] Hemoglobin (Bld) [Mass/Vol] 12.9 g/dL Normal 11.7-16.0 [facility] Comment on above: Performed By: #### B MP3, HEMDF #### [place] [address] [place], [place] Lymphocytes (Bld) [#/Vol] 1.4 10*3/uL Normal 1.0-4.3 [facility] Comment on above: Performed By: #### B MP3, HEMDF #### [place] [address] [place], [place] Lymphocytes/100 WBC (Bld) 9.3 % Low 20.0-40.0 [facility] Comment on above: Performed By: #### B MP3, HEMDF #### [place] [address] [place], [place] MCH (RBC) [Entitic mass] 32.0 pg Normal 26.0-34.0 [facility] Comment on above: Performed By: #### B MP3, HEMDF #### [place] [address] [place], [place] MCHC (RBC) [Mass/Vol] 34.0 % Normal 32.0-36.0 [facility] Comment on above: Performed By: #### B MP3, HEMDF #### [place] [address] [place], [place] MCV (RBC) [Entitic vol] 94.1 fL Normal 79.0-98.0 [facility] Comment on above: Performed By: #### B MP3, HEMDF #### [place] [address] [place], [place] Monocytes (Bld) [#/Vol] 1.1 10*3/uL High 0.0-0.8 [facility] Comment on above: Performed By: #### B MP3, HEMDF #### [place] [address] [place], [place] Monocytes/100 WBC (Bld) 7.4 % Normal 2.0-10.0 [facility] Comment on above: Performed By: #### B MP3, HEMDF #### [place] [address] [place], [place] Platelet mean volume (Bld) [Entitic vol] 6.8 fL Low 7.4-10.4 [facility] Comment on above: Performed By: #### B MP3, HEMDF #### [facility] [address] [place], [place] Platelets (Bld) [#/Vol] 526 10*3/uL High 140-440 [facility] Comment on above: Performed By: #### B MP3, HEMDF #### [facility] [address] [place], [place] RBC (Bld) [#/Vol] 4.03 10*6/uL Normal 3.80-5.20 [facility] Comment on above: Performed By: #### B MP3, HEMDF #### [facility] [address] [place], [place] WBC (Bld) [#/Vol] 14.8 10*3/uL High 3.6-10.7 [facility] Comment on above: Performed By: #### B MP3, HEMDF #### [facility] [address] [place], [place] VL Venous Duplex US Lower Ex t Righton 11-10-2019 VL Venous Duplex US Lower Ext Right Patient Name: GONZALO DELUCA Ultrasound Exam Date/Time 11/10/2019 18:25:00 EDT Exam VL Venous Duplex US Lower Ext Right Ordering Physician [id number] -TANI JOSEPH Accession Number [id number] CPT4 Codes 74698 () Reason For Exam Other specified soft tissue disorders Report [facility] ----- Right Lower Extremity Venous Duplex Report Ordering Physician: Tani Joseph Director Of Public Works: Luda Alonso Interpreting Physician: Ramses Mcgrath MD ----- Location: [facility] at [place] ----- Indications: Leg swelling. Pt s/p hysterectomy 11/06/2019. Rt lower leg swelling x 1 day. Pt given Lovenox in ED last night. ----- Preliminary result was reported to Dr. Lowell Lopez , by Luda Alonso , on 11/10/2019 , at 06:30 PM. Correct read-back was verified. Patient was sent home. ----- Conclusions 1. There is no evidence of acute deep or superficial venous thrombosis noted in the right lower extremity. 2. The left common femoral vein fully compresses and demonstrates normal venous flow. ----- History: Risk factors: Former tobacco use. Age over 50 years. ----- Study data: Right lower extremity venous duplex evaluation. Right lateral evaluation with grayscale 2D imaging, color Doppler imaging, and spectral Doppler analysis. Location: Vascular laboratory. Procedure: A vascular evaluation was performed with the patient in the supine position. Images were obtained using a [employer] [email or web address] [email or web address] vascular ultrasound machine. ----- Venous flow and imaging: + ----+-------+--------- ----+ +Location +Overall+Properties + + ----+-------+--------- ----+ +R CFV +Patent +Normal phasicity; spontaneous; + + + +normal augmentation; compressible + + ----+-------+--------- ----+ +R saphenofemoral junction+Patent +Compressible + + ----+-------+--------- ----+ +R profunda femoral +Patent +Normal phasicity; spontaneous; + + + +normal augmentation + + ----+-------+--------- ----+ +R FV - prox. +Patent +Compressible + + ----+-------+--------- ----+ +R FV - mid +Patent +Normal phasicity; spontaneous; + + + +normal augmentation; compressible + + ----+-------+--------- ----+ +R FV - distal +Patent +Compressible + + ----+-------+--------- ----+ +R popliteal +Patent +Normal phasicity; spontaneous; + + + +normal augmentation; compressible + + ----+-------+--------- ----+ +R gastrocnemius +Patent +Compressible + + ----+-------+--------- ----+ +R PTV +Patent +Compressible + + ----+-------+--------- ----+ +R peroneal +Patent +Compressible + + ----+-------+--------- ----+ + ----+Patent +Compressible + + ----+-------+--------- ----+ +R GSV +Patent +Compressible + + ----+-------+--------- ----+ +L CFV +Patent +Normal phasicity; spontaneous; + + + +normal augmentation; compressible + + ----+-------+--------- ----+ Prepared and electronically signed by Ramses Mcgrath MD 11/12/2019 08:11 Final Dictated: 11/12/2019 8:11 am Dictating Physician: RAMSES MCGRATH Signed Date and Time: 11/12/2019 8:11 am Signed by: RAMSES MCGRATH [facility] Op Noteon 11-06-2019 Op Note PATIENT: MAHAMED DELUCA ADMISSION DATE: 11/06/2019 SURGERY DATE: 11/06/2019 DATE OF : 1955 AGE: 63 ADMITTING PHYSICIAN: Ziyad Menendez MD ATTENDING PHYSICIAN: Ziyad Menendez MD DICTATING PHYSICIAN: Ziyad Menendez MD OPERATIVE RECORD Procedure: ABDOMINAL RADICAL HYSTERECTOMY WITH BSO AND PELVIC LYMPH NODE DISSECTION. Preoperative Diagnosis: Cervical cancer stage IB2. Postoperative Diagnosis: Cervical cancer stage IB2. Anesthesia: General. Avionics Installer : Dr. Beth. Description of Findings: No evidence of extra cervical disease was found. Description of Procedure: The patient was identified and brought to the operating room. After administration of general anesthetic, underwent abdominoperineal and vaginal prep. She underwent exam under anesthesia, which revealed a small tumor about 2.5 cm that appeared to be in the lower uterine segment, endocervix with no evidence of parametrial vaginal involvement. A Dooley catheter was placed after she was prepped and draped and she was draped in supine position. Compression stockings on and running. Time-out was performed. Antibiotics were given. Using a knife, a Pfannenstiel incision was made, sharply dividing down through the skin, subcutaneous tissue was taken down using Bovie cautery. The fascia was opened using Bovie cautery, dissected off the underlying rectus abdominus muscles. The peritoneal cavity was opened sharply. The Nilesh wound retractor was placed followed by the Bookwalter retractor. Intra-abdominal exploration was normal. The bowel was packed out of the pelvis with wet lap sponges. The right and left round ligaments were coagulated and transected. The anterior and posterior leaves of the broad ligament were opened. The pararectal and paravesical spaces were made, no suspicious adenopathy and no evidence of parametrial disease was found. The ovarian vessels were skeletonized above the ureter, coagulated with bipolar cautery and divided. The bladder was dissected inferiorly. On the right side, the right uterine artery was identified as it exited from the superior vesical artery, was coagulated and divided using the Enseal. The right ureter was then dissected off the medial leaf of the right broad ligament, using fine right angle clamps, a small burst of electrocautery. The parametrial tunnel was opened. The ureter was released all the way down to its entry into the bladder. A similar dissection was then repeated over on the left side. The rectovaginal space was then opened and the rectum was dissected inferiorly. The uterosacral ligaments were clamped, cut, and tied using curved Zeppelins and 0 Vicryl transfixion sutures. Again using curved zeppelins, the parametrial tissue was clamped cut and tied to the vaginal tube. The vaginal cuff then crossclamped with curved Zeppelins, sharply divided, and the radical hysterectomy specimen handed off the field, was marked at 12 o'clock on the vaginal mucosa. The Zeppelins were replaced with 0 Vicryl transfixion sutures and the cuff was closed using interrupted 0 Vicryl [id number]. The abdomen and pelvis was then copiously irrigated. Starting on the left side, left common iliac, followed by left external and internal iliac nodes were removed as well as lymph nodes in the obturator space. The obturator was identified and preserved. The dissection was continued until the crossing of the circumflex iliac vein distally. A similar dissection was then repeated on the right side to remove the right pelvic lymph nodes. Hemostasis was both bipolar and monopolar cautery. Hemostasis was noted. The pelvis was irrigated. All sponges, needles, and instruments was correct to the surgeon x2 and using the colon closure protocol, the fascia was then closed using a running 0 PDS in a loop mass closure system, followed by subcuticular 3-0 Monocryl on the skin. Steri-Strips were applied and she was taken to the recovery room in stable condition. EBL about 250 cc. Diskriter Job ID: [id number] Ziyad Menendez MD DOD:11/06/2019 10:13 A /geraldnie DOT:11/06/2019 10:45 A Job Number: [id number] Document Number: [id number] cc: Ziyad Menendez MD [facility] [address] [facility] [id number] Angle Case MD [address] [address] Normal [facility] Surgical Pathologyon 020 Surgical Pathology [id number] [facility] PATHOLOGY AND LABORATORY MEDICINE [address] [place], [place] [id number] FINAL SURGICAL PATHOLOGY REPORT NAME: GONZALO DELUCA Barrington : 1955 63 Y F BILLING NO.: [id number] LOCATION: [address] [place] [address] PROCEDURE 11/06/2019 DATE: SURGEON: ZIYAD MENENDEZ MD RECEIVED 11/06/2019 DATE: ATTENDING: ZIYAD MENENDEZ MD REPORT DATE: 11/07/2019 COPIES TO: DIAGNOSIS: A. 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 LEFT PELVIC LYMPH NODES, SAMPLING - SIX LYMPH NODES, NEGATIVE FOR METASTASIS (0/6) C. RIGHT PELVIC LYMPH NODES, SAMPLING - ONE OF 12 LYMPH NODES, POSITIVE FOR METASTATIC CARCINOMA (1/12) - FOCUS OF METASTATIC CARCINOMA MEASURES APPROXIMATELY 0.5 MM IN MAXIMAL DIMENSION SPECIMEN Procedure: Radical hysterectomy, Bilateral salpingo-oophorectomy TUMOR Tumor Size: Greatest Dimension (Centimeters) - 2.2 x 2 x 2 cm Histologic Type: Squamous cell carcinoma, NOS Histologic Grade: G2: Moderately differentiated Depth of Stromal Invasion (Millimeters): 10 mm Longitudinal Horizontal Extent / Length of Stromal Invasion (Millimeters): 22 mm Other Tissue / Organ Involvement: Not applicable Lymphovascular Invasion: Present MARGINS Ectocervical Margin: Uninvolved by invasive carcinoma Status of Intraepithelial Neoplasia at Margin: Uninvolved by intraepithelial neoplasia Radial (Circumferential) Margin: Uninvolved by invasive carcinoma Vaginal Cuff Margin: Uninvolved by invasive carcinoma Status of Intraepithelial Neoplasia at Margin: Uninvolved by intraepithelial neoplasia LYMPH NODES Number of Nodes with Metastasis (excludes isolated tumor cells): 1 Number of Nodes with Isolated Tumor Cells: 0 Rubio Site(s) with Tumor Cells: Right pelvic Total Number of Node(s) Examined: 20 PATHOLOGIC STAGE CLASSIFICATION (pTNM, AJCC 8th Edition) Note: Reporting of pT, pN, and (when applicable) pM categories is based on information available to the pathologist at the time the report is issued. As per the AJCC (Chapter 1, 8th Ed.) it is the managing physician's responsibility to establish the final pathologic stage based upon all pertinent information, including but potentially not limited to this pathology report. Primary Tumor (pT): pT1b1 Regional Lymph Nodes (pN): pN1 FIGO STAGE FIGO Stage: IIIC1 RECEIVING TEAM MEMBER TUMOR BLOCK(S): A2, A3 HCK/HCK Signature> ANSLEY CHAUDHARY M.D. 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 "Radical hysterectomy, bilateral tubes and ovaries" Received in formalin is a radical hysterectomy specimen consisting of uterus, cervix, parametrium, vaginal cuff, and bilateral adnexa. A blue suture per requisition stephenson the 12 o'clock aspect of the specimen. The uterus and cervix weigh 72 grams and measure 7.7 x 3.8 x 2.7 cm. The ectocervix and vaginal cuff are pale pink in color and measures 3.7 x 3.7 cm. The os is patent and slit like and measures 1.2 cm across. The cervix from approximately 3 o'clock to 8 o'clock has a somewhat roughened, granular texture. No obvious mass is notable from the external surface. The parametrium on the right aspect measures roughly 3 x 2.8 x 1.2 cm and on the left side measures roughly 3.2 x 1.2 x 0.6 cm. The serosal surface of the uterus is pale valero stein in color smooth and glistening. The parametrium and the surrounding paracervical tissue is painted with black ink. The ectocervix is removed, revealing an apparent mass lesion present from the 6 o'clock to 9 o'clock aspects, extending into the parametrial soft tissue. An area of possible ulceration is adjacent to this area. This measures roughly 2.2 x 2.0 x2.0 cm on cross sections. Portions have a glossy white cut surface. Separate possible foci is noted at the approximately 3 o'clock aspect. The majority of friable area is noted from the 6 o'clock to 9 o'clock aspects, which are entirely submitted. Bisecting the uterus reveals the remaining endocervical canal to measure 3.2 cm with the endometrial cavity being triangular in shape and measuring 2 x 1.7 cm cornu to cornu. The cut surfaces are glossy stein pink. The majority of lesion appears concentrated on the right hand aspect of the posterior and anterior uterus. A single 0.6 cm white whorled nodule on the anterior aspect is noted. No other lesions are noted within the endomyometrium. The left ovary measures 2.4 x 1.5 x 1.1 cm with a weight of 1 gram. The ovary is pink stein and cerebriform in appearance. Sectioning reveals multiple small fluid filled cysts. No papillations or excrescences are identified. Multiple financial sales representative sections are submitted. The left fallopian tube segment measures 6.3 cm in length by an average diameter of 1.1 cm. The tube appears to have been previously surgically interrupted by the presence of blue surgical ties imbedded within the tubal tissue. The tube is dusky purple in coloration with fimbria present at one end. Sectioning reveals an unremarkable pinpoint lumen. No masses or lesions are identified. The right ovary weighs less than 1 gram and measures 2.8 x 1.1 x 0.8 cm. The ovary has a stein yellow cerebriform appearance and when sectioned, demonstrates and unremarkable appearing cut surface. No masses or lesions are identified. The entire ovary is submitted for microscopic examination. The right fallopian tube segment measures 6.6 cm in length with an average diameter of 0.6 cm. The tube has been previously interrupted via the presence of two blue surgical ties imbedded within the tissue and has a dusky purple to valero appearance. Fimbria are present at one end. Sectioning reveals an unremarkable pinpoint lumen. No masses or lesions are grossly identified. Multiple financial sales representative sections are submitted. Cassette Summary: 1 - 4 is ectocervix with vaginal cuff margin from 6 o'clock to 9 o'clock, entirely submitted; 5 is financial sales representative 9 o'clock to 12 o'clock; 6 - 8 is 3 o'clock to 6 o'clock, entirely submitted; 9 is financial sales representative 12 o'clock to 3 o'clock; 10 is 12 o'clock to 3 o'clock perpendicular section; 11is 3 o'clock to 6 o'clock perpendicular section; 12 is 6 o'clock to 9 o'clock, perpendicularly sectioned; 13 is 9 o'clock to 12 o'clock, perpendicularly sectioned; 14 and 15 are full thickness posterior endomyometrium; 16 and 17 are full thickness anterior endomyometrium with white whorled nodule; 18 is posterior lower uterine segment; 19 is anterior lower uterine segment; 20 and 21 is financial sales representative right parametrium; 22 is financial sales representative left parametrium; 23 is left ovary; 24 is right ovary; 25 is left fallopian tube; 26 right fallopian tube. B. "Left pelvic lymph node" Received in formalin are multiple fragments of yellow stein fibrofatty tissue which aggregate to approximately 5.3 x 3.0 x 1.2 cm. Contained within this tissue are multiple possible small lymph nodes ranging in size from 0.4 cm to 5 cm in greatest dimensions. The largest lymph node is serially sectioned and submitted into cassettes 1 - 4; 5 - 7 each contain a single possible lymph node, sectioned; 8 contains two possible lymph nodes; 9 contains the remainder of tissue from the specimen. C. "Right pelvic lymph node" Received in formalin are multiple small fragments of yellow stein fibrofatty tissue which aggregate to approximately 7.5 x 3.5 x 1.1 cm. Contained within this tissue are multiple possible small lymph nodes are identified which range in size from 0.4 cm in greatest dimensions to 4.5 cm in greatest dimensions. The largest lymph node is sectioned and entirely submitted into cassettes 1 - 4. The second largest node is submitted entirely into cassettes 5 - 7; 8 - 11 each contain a single possible lymph node, bisected; 12 contains four possible small lymph nodes. The remaining tissue from the specimen is submitted into 13. S/[facility] Disclaimer: The following statement applies to all immunohistochemistry, in situ hybridization, molecular studies, and immunofluorescence testing. The use of one or more reagents in the above tests is regulated as an analyte specific reagent (ASR). These tests were developed and their performance characteristics determined by the clinical laboratories of [facility]. They have not been cleared by the US Food and Drug Administration (FDA). The FDA has determined that such clearance or approval is not necessary. All the above immunostains were performed on paraffin embedded tissue. Appropriate positive and negative controls (where applicable) were run in parallel with the patient's specimen; these controls showed expected staining pattern, with acceptable intensity of staining. Immunohistochemical assays have not been validated on decalcified tissues. Results should be interpreted with caution given the raised possibility of false negativity on decalcified specimens. Professional Performing Location: [facility] [address] [place] [address]. DEPARTMENT OF PATHOLOGY AND LABORATORY MEDICINE [place], [place] [address] Normal [facility] TS GELon 11-05-2019 TS GEL ABO Group: A Rh, Gel: POS Antibody Screen Gel: NEG Normal [facility] Comment on above: Performed By: #### T SGL ####[id number] [place], [place] [address] TYPE AND SCREENon 11-05-2019 Sodium [Moles/Vol] A [facility] [place] Sodium [Moles/Vol] Positive [facility] [place] Sodium [Moles/Vol] Negative [facility], ONEL Test Performed by [facility], [address] [place] [id number] [facility] Helen 10-31-2019 CNPN Telephone (JOSE LUISFV) GONZALO DELUCA ([id number]) 1955 F Date Time Provider Department 10/31/19 AMELIE SOUSA ([employer]) AYE During your visit today, we recorded the following information about you: Allergies As of Date: 10/31/2019 Noted Allergy Reaction SEASONAL ALLERGIES 08/16/2017 5 - Intolerance Date Reviewed: 10/19/2019 Reviewed by: Luz Ellis Ma - Fully Assessed Reason for Visit: Future Appointment [256] Cmt: Spoke with patient and gave PET Scan instructions. Prescriptions as of 10/31/2019 Sig: SURGICAL LUBRICANT JELLY TOPI* For MRI Female Pelvis, MRI de* SURGICAL LUBRICANT JELLY TOPI* For MRI Female Pelvis, MRI de* PREDNISONE 20 MG TABLET Take 3 tabs by mouth daily x * SODIUM CHLORIDE 0.9 % (FLUSH)* Inject 2-10 mL intravenously * PERFLUTREN LIPID MICROSPHERES* Inject 1.3 mL intravenously a* OMEPRAZOLE 20 MG CAPSULE,HOMERO* Take 1 capsule by mouth once * OXYCODONE-ACETAMINOPHE N 7.5 M* Take 1 tablet by mouth three * OXYCODONE-ACETAMINOPHE N 7.5 M* Take 1 tablet by mouth three * TRAZODONE 50 MG TABLET Take 2 tablets by mouth daily* SERTRALINE 100 MG TABLET Take 2 tablets by mouth once * BUPROPION XL 150 MG TAB Take 1 tablet by mouth once d* CYCLOBENZAPRINE 5 MG TABLET Take 1 tablet by mouth twice * DULERA 200 MCG-5 MCG/ACTUATIO* Inhale 2 Puffs as instructed * Patient taking differently: Inhale 2 Puffs as instructed * TUDORZA PRESSAIR 400 MCG/ACTU* Inhale 1 Puff as instructed t* ALENDRONATE 70 MG TABLET Take 1 tablet by mouth one ti* GABAPENTIN 300 MG CAPSULE Take 1 capsule by mouth at be* MONTELUKAST 10 MG TABLET Take 1 tablet by mouth daily * ALBUTEROL SULFATE HFA 90 MCG/* INHALE 2 PUFFS BY MOUTH 4 CAROLINA* IBUPROFEN 600 MG TABLET Take 600 mg by mouth every 8 * ALBUTEROL SULFATE 2.5 MG/3 ML* FLUTICASONE PROPIONATE 50 MCG* Use 2 Sprays in each nostril * Problem List As Of Date 10/31/2019 Noted Resolved DDD (degenerative disc disease), lumbar [M51.36] COPD with exacerbation (HCC) [J44.1] Major depression, recurrent, chronic (HCC) [F33* Osteoporosis [M81.0] Pulmonary nodule, right [R91.1] Compression fracture of body of thoracic verteb*07/11/2018 Obesity, Class I, BMI 30-34.9 [E66.9] 12/07/2018 Chronic midline low back pain without sciatica *03/23/2019 Encounter Status:Closed by AMELIE ZAYAS on 10/31/19 [facility] PROGRESSon 10-31-2019 PROGRESS HNO ID: [id number] Author: Ankit Cook Service: ? Author Type: Physician Type: Progress Notes Filed: 11/13/2019 11:07 AM Note Text: TELEVISIT PROGRESS NOTE This is a telephone encounter initiated for an established patient, parent or guardian not leading to an Evaluation AND Management service or procedure within the next 24 hours or soonest available appointment. Patient name and birthday verified: Yes Location of patient: [place] Persons Present: patient PROBLEM: Presents for results Subjective: 63 yo hx vaginal bleeding. Referred by Dr. Valladares. Pap test notable for malignant cells. Pelvic US 09/27/2019 notable for dilated uterine cavity. Endometrial thickness by my measurement 1.3mm. Hypervascular endocervical/lower uterine segment lesion. 10/19/2019: EMB/ECC Endometrium and endocervix, biopsy and curettage (A, B) ?Detached fragments of squamous cell carcinoma; see comment COMMENT To further evaluate this patient's malignancy, immunohistochemical stains were performed and evaluated at the [facility] using block B1. 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 ?P53 shows wild type expression. ?ER shows moderate expression in 30% of tumor cells. ?MI is negative. ?An RNA in situ hybridization (DARION) test for high risk HPV is also positive. 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 The submitted material is fragmented and stromal invasion cannot be adequately evaluated. ?Dr. Navjot Escamilla has reviewed this case and agrees. 10/19/2019 wound culture - No growth 3 days 11/06/19 radical ARIANA-BSO-LND (Dr Ziyad Menendez, [facility]) 11/09/19 ED Visit ([facility]) MRI not yet completed PET not yet completed Surgical Lubricant Jelly gel For MRI Female Pelvis, MRI department to provide. Administer intra-vaginal Surgilube immediately prior the MRI procedure (total amount to patient toleranace). Surgical Lubricant Jelly gel For MRI Female Pelvis, MRI department to provide. Administer intra-vaginal Surgilube immediately prior the MRI procedure (total amount to patient toleranace). predniSONE (DELTASONE) 20 mg tablet Take 3 tabs by mouth daily x 3 days, then 2 tabs daily x 3 days, then 1 tab daily x 3 days, then 1/2 tab daily x 4 days NaCl 0.9% Inject 2-10 mL intravenously as directed. For Echo procedure perflutren lipid microspheres (DEFINITY) 1.1 mg/mL injection (to be provided with echo procedure) Inject 1.3 mL intravenously as directed. Administration Instructions: If no IV access, insert saline lock prior to administering contrast. Discontinue saline lock post exam. If patient has central line or IVAD, may access for administration according to line specific nursing protocol. Once exam is complete, flush line and de-access per line specific nursing protocol.Diluted IV Bolus: Dilute 1.3 ml of Definity with 8.7 ml of preservative-free saline. omeprazole (PRILOSEC) 20 mg capsule Take 1 capsule by mouth once daily. oxyCODONE-acetaminophe n (PERCOCET) 7.5-325 mg tablet Take 1 tablet by mouth three times daily as needed for Pain for up to 30 days. Do not start before September 30, 2019. oxyCODONE-acetaminophe n (PERCOCET) 7.5-325 mg tablet Take 1 tablet by mouth three times daily as needed for Pain for up to 30 days. Do not start before October 30, 2019. traZODone (DESYREL) 50 mg tablet Take 2 tablets by mouth daily at bedtime. sertraline (ZOLOFT) 100 mg tablet Take 2 tablets by mouth once daily. buPROPion XL (WELLBUTRIN XL) 150 mg 24 hr tablet Take 1 tablet by mouth once daily. cyclobenzaprine (FLEXERIL) 5 mg tablet Take 1 tablet by mouth twice daily as needed. mometasone-formoterol (DULERA) 200-5 mcg/actuation inhaler Inhale 2 Puffs as instructed twice daily. aclidinium bromide (TUDORZA PRESSAIR) 400 mcg/actuation aepb inhaler Inhale 1 Puff as instructed twice daily. alendronate (FOSAMAX) 70 mg tablet Take 1 tablet by mouth one time a week. gabapentin (NEURONTIN) 300 mg capsule Take 1 capsule by mouth at bedtime as needed for up to 30 days. montelukast (SINGULAIR) 10 mg tablet Take 1 tablet by mouth daily at bedtime. albuterol HFA (PROVENTIL HFA, VENTOLIN HFA) 90 mcg/actuation inhaler INHALE 2 PUFFS BY MOUTH 4 TIMES A DAY ibuprofen (MOTRIN) 600 mg tablet Take 600 mg by mouth every 8 hours as needed for Pain. albuterol (PROVENTIL) 2.5 mg /3 mL (0.083 %) nebulizer solution fluticasone (FLONASE) 50 mcg/actuation nasal spray Use 2 Sprays in each nostril once daily. ALLERGIES Allergen Reactions - Seasonal Allergies Intolerance ROS: Gonzalo Deluca reports that she feels well. No vaginal bleeding or discharge. No shortness of breath, cough, or chest pain. No abdominal pain, nausea, vomiting, diarrhea, or constipation. No dysuria, gross hematuria, urinary frequency, urinary urgency, or incontinence. Her ECOG performance status is 2 (ambulatory and capable of all selfcare but unable to carry out any work activities, up and about more than 50% of waking hours). Ankit Cook MD PHYSICAL: N/A Telephone Encounter RESULTS: ASSESSMENT: 63 yo T1b1 N1a SCC cervix Staged at [facility] 11/06/2019 Hx COPD, 3L suppl O2 at home Possible TIA 07/2019 CAD abd stress 2017; possible NSTEMI 2017 (per pt) Mother berast CA Sister breast CA [facility] eval 10/21/[address] notable for old T5 compressions fx PLAN: MRI and PET CT completed at [facility] S/p staging surgery w Dr. Menendez 11/06/201904/01 Pelvic nodes positive, Ao nodes not sampled 10mm stromal invasion Planned for adjuvant chemoRT at [facility] Ankit Cook MD 5min spent counseling the pateint by telephone Normal [facility] Basic Metabolic Panelon 08-0 Anion gap [Moles/Vol] 6 mmol/L [place], [place] Calcium [Mass/Vol] 9.7 mg/dL 8.4 - 10. 4 mg/dL [place], [place] Chloride [Moles/Vol] 102 mmol/L 98 - 10 7 mmol/L [place] CO2 [Moles/Vol] 32 mmol/L High 22 - 30 mmol/L [place] Creatinine [Mass/Vol] 0.57 mg/dL 0.52 - 1.25 mg/dL [place], [place] EGFR IF NonAfrican Gambian >90.0 >60 mL/min [place], [place] Comment on above: KDIGO guidelines pro vide the following GFR categories: Stage GFR(ml/min/1.73 m2) Terms G1 >=90 Normal or high G2 60-89 Mildly decreased* G3a 45-59 Mildly to moderately decreased G3b 30-44 Moderately to severely decreased G4 15-29 Severely decreased G5 <15 Kidney failure *Relative to young adult level. In the absence of evidence of kidney damage, neither GFR category G1 nor G2 fulfill the criteria for CKD. The CKD-EPI equation is validated in individuals 18 years of age and older. Currently the best equation for estimating glomerular filtration rate (GFR) from serum creatinine in children is the Bedside Vazquez equation. It is less accurate in patients with extremes of muscle mass, restriction of dietary protein, ingestion of creatine, extra-renal metabolism of creatinine, or treatment with medications that affect renal tubular creatinine secretion. GFR/1.73 sq M predicted among blacks MDRD (S/P/Bld) [Vol rate/Area] mL/min/{1.73_m2} >60 mL/min [place] Glucose [Mass/Vol] 111 mg/dL High 70 - 100 mg/dL [place] Potassium [Moles/Vol] 4.1 mmol/L 3.5 - 5.1 mmol/L [place] Sodium [Moles/Vol] 140 mmol/L 135 - 145 mmol/L [place] Urea nitrogen [Mass/Vol] 20 mg/dL 7 - 20 mg/d L [place] ABDOMEN PELVIS W CONTRAST on 10-27-2019 [facility] Incoming Radiology Results From [facility] - 10/27/2019 5:10 PM EDT Patient Name: GONZALO DELUCA ---CT--- Exam Date/Time 10/27/2019 16:53:[address] Abdomen/Pelvis w/ IV Contrast (IV Onl Ordering Physician MD JAMIE, ANKIT French Accession Number [id number] CPT4 Codes 77386 (CT Abdomen/Pelvis w/ IV Contrast (IV Onl), Q9967 (CT ISOVUE 370MG/[id number] L&1) Reason For Exam RUQ/RIGHT flank pain, known cervical CA, unknown if Mets Report CT ABDOMEN AND PELVIS CLINICAL INDICATION: RUQ/RIGHT flank pain, known cervical CA, unknown if Mets TECHNIQUE: CT scan of the abdomen and pelvis with IV contrast. Multiplanar reformations. COMPARISON: None FINDINGS: Lung bases show emphysema. A few small nodular densities noted at the lung bases, largest is about 8 x 6 mm in the right lower lobe. No free intraperitoneal gas seen. Liver shows no significant abnormality. Gallbladder and biliary tree appear normal. Spleen shows no significant abnormality. Adrenal glands show no significant abnormality. 2 mm calculus mid left kidney. Kidneys otherwise appear unremarkable. Pancreas shows no significant abnormality. Abdominal aorta is nonaneurysmal. The appendix appears normal. Constipation noted. No bowel obstruction. No acute inflammatory process. No adenopathy seen. Numerous diverticula, mostly in the sigmoid colon. No diverticulitis seen. No ureteral calculus seen on either side. Mild L3 compression fracture, which appears chronic. IMPRESSION: 1. A few small nodular densities at the lung bases, nonspecific. Fleischner Society guidelines indicate that for solitary nodules measuring 6-8 mm in average cross-sectional size in a low risk patient, a CT follow-up is recommended in 6-12 months, and then an additional CT can be considered at 18-24 months. For multiple nodules in a low risk patient measuring 6-8 mm in average cross-sectional size, a CT follow-up is recommended in 3-6 months, and then an additional CT can be considered at 18-24 months. For a high risk patient, a solitary nodule measuring 6-8 mm in average cross-sectional size requires CT follow-up in 6-12 months, with additional follow-up at 18-24 months. Multiple nodules from 6-8 mm in average cross-sectional size require CT in 3-6 months, with a follow-up at 18-24 months. 2. Constipation. Diverticulosis. Report Dictated on --- Final --- Dictating Physician: MD VENCES JOHN R Signed Date and Time: 10/27/2019 5:08 pm Signed by: MD VENCES JOHN R Transcribed Date and Time: 10/27/2019 5:09 [place] Patient Name: GONZALO DELUCA ---CT--- Exam Date/Time 10/27/2019 16:53:[address] Abdomen/Pelvis w/ IV Contrast (IV Onl Ordering Physician MD JAMIE, ANKIT French Accession Number [id number] CPT4 Codes 49409 (CT Abdomen/Pelvis w/ IV Contrast (IV Onl), Q9967 (CT ISOVUE 370MG/[id number]&M L&1) Reason For Exam RUQ/RIGHT flank pain, known cervical CA, unknown if Mets Report CT ABDOMEN AND PELVIS CLINICAL INDICATION: RUQ/RIGHT flank pain, known cervical CA, unknown if Mets TECHNIQUE: CT scan of the abdomen and pelvis with IV contrast. Multiplanar reformations. COMPARISON: None FINDINGS: Lung bases show emphysema. A few small nodular densities noted at the lung bases, largest is about 8 x 6 mm in the right lower lobe. No free intraperitoneal gas seen. Liver shows no significant abnormality. Gallbladder and biliary tree appear normal. Spleen shows no significant abnormality. Adrenal glands show no significant abnormality. 2 mm calculus mid left kidney. Kidneys otherwise appear unremarkable. Pancreas shows no significant abnormality. Abdominal aorta is nonaneurysmal. The appendix appears normal. Constipation noted. No bowel obstruction. No acute inflammatory process. No adenopathy seen. Numerous diverticula, mostly in the sigmoid colon. No diverticulitis seen. No ureteral calculus seen on either side. Mild L3 compression fracture, which appears chronic. IMPRESSION: 1. A few small nodular densities at the lung bases, nonspecific. Fleischner Society guidelines indicate that for solitary nodules measuring 6-8 mm in average cross-sectional size in a low risk patient, a CT follow-up is recommended in 6-12 months, and then an additional CT can be considered at 18-24 months. For multiple nodules in a low risk patient measuring 6-8 mm in average cross-sectional size, a CT follow-up is recommended in 3-6 months, and then an additional CT can be considered at 18-24 months. For a high risk patient, a solitary nodule measuring 6-8 mm in average cross-sectional size requires CT follow-up in 6-12 months, with additional follow-up at 18-24 months. Multiple nodules from 6-8 mm in average cross-sectional size require CT in 3-6 months, with a follow-up at 18-24 months. 2. Constipation. Diverticulosis. Report Dictated on --- Final --- Dictating Physician: MD VENCES JOHN R Signed Date and Time: 10/27/2019 5:08 pm Signed by: MD VENCES JOHN R Transcribed Date and Time: 10/27/2019 5:09 [place] Hemogram (CBC) w/Auto Diffon 10-27-2019 Absolute Baso # 0.1 10*3/uL 0 - 0.2 10*3/uL [place] Absolute Neut # 9.8 10*3/uL High 1.8 - 7 10*3/uL [place] Basophils/100 WBC (Bld) 0.4 % 0 - 2 % M [place] Eosinophils (Bld) [#/Vol] 0.5 10*3/uL 0 - 0.5 10*3/uL [place] Eosinophils/100 WBC (Bld) 4.0 % 1 - 6 % [place] Erythrocyte distribution width (RBC) [Ratio] 14.4 % 11.5 - 14.5 % [place] Granulocytes/100 WBC (Bld) 76.6 % 40 - 80 % [place] Hematocrit (Bld) [Volume fraction] 41.9 % 35 - 47 % [place] Hemoglobin (Bld) [Mass/Vol] 13.7 g/dL 11.7 - 16 g/dL [place] Lymphocytes (Bld) [#/Vol] 1.5 10*3/uL 1 - 4.3 10*3/uL [place] Lymphocytes/100 WBC (Bld) 12.1 % Low 20 - 40 % [place] MCH (RBC) [Entitic mass] 30.3 pg 26 - 34 pg [place] MCHC (RBC) [Mass/Vol] 32.6 % 32 - 36 % [place] MCV (RBC) [Entitic vol] 93.1 fL 79 - 98 fL [place], [place] Monocytes (Bld) [#/Vol] 0.9 10*3/uL High 0 - 0.8 10*3/uL [place] Monocytes/100 WBC (Bld) 6.9 % 2 - 10 % [place] Platelet mean volume (Bld) [Entitic vol] 7.1 fL Low 7.4 - 10.4 fL [place] Platelets (Bld) [#/Vol] 413 10*3/uL 140 - 440 10*3/uL [place] RBC (Bld) [#/Vol] 4.50 10*6/uL 3.8 - 5.2 10*6/uL [place] WBC (Bld) [#/Vol] 12.8 10*3/uL High 3.6 - 10.7 10*3/uL [place] Hepatic Function Panelon Albumin [Mass/Vol] 4.2 g/dL 3.5 - 5 g/dL [place] ALP [Catalytic activity/Vol] 116 U/L 38 - 126 U/L [place] ALT [Catalytic activity/Vol] 42 U/L High 0 - 34 U/L [place] Comment on above: The ALT test is perf ormed by an updated assay method. Please note that the reference intervals have been changed and are now sex specific. AST [Catalytic activity/Vol] 47 U/L High 15 - 46 U/L [place] Bilirubin Ql (U) 0.4 mg/dL 0.2 - 1.3 mg/dL [place] Bilirubin.direct [Mass/Vol] 0.0 mg/dL 0 - 0.3 mg/dL [place] Protein [Mass/Vol] 7.5 g/dL 6.3 - 8.2 g/dL [place] Lipaseon 10-27-2019 Lipase [Catalytic activity/Vol] 72 U/L 23 - 300 U/L [place] Otheron 10-27-2019 Interpretation and review of laboratory results Abnormal [place] Test Performed by [facility], [address] [place], [place] [id number] [place] [address] CT LUMBAR SPINE WO CONTRASTo n 10-21-2019 Patient Name: GONZALO DELUCA ---CT--- Exam Date/Time 10/21/2019 21:54:[address] Spine Lumbar w/o Contrast Ordering Physician DO OTTO DAVID J Accession Number [id number] CPT4 Codes 98638 () Reason For Exam Acute onset T 10 to L1 pain. Suspect compression fracture. History compression fractures Report CT THORACIC AND LUMBAR SPINE WITHOUT CONTRAST CLINICAL INDICATION: Acute onset T 10 to L1 pain. Suspect compression fracture. History compression fractures TECHNIQUE: CT scan of the thoracic and lumbar spine without IV contrast. Multiplanar reformations. COMPARISON: CT chest, August,. FINDINGS: Diffuse osteopenia. Mild dextroconvex curvature in the thoracic spine may be positional versus soft tissue spasm. Marked, wedge-shaped compression deformity in T5 level similar to comparison. Moderate compressive change in T7 level and mild compressive change in T6 level, also similar. No significant retropulsion. Mild-moderate concavity in the L3 superior endplate without anterior cortical buckling or significant retropulsion may also represent chronic insufficiency change. Variable, multilevel degenerative disc disease and spondylosis, most pronounced in the lower thoracic and lower lumbar spine. No obviously acute compression deformity or gross malalignment of thoracic and lumbar vertebral bodies. No acute fracture. No acute, osseous central spinal canal encroachment. Paraspinal soft tissues grossly unremarkable. Diffuse, bullous emphysematous change partially visualized in the lungs. Pleuroparenchymal, nodular densities in the bilateral lung bases measuring 1.2 cm on the right and 1.3 cm on the left partially visualized and may represent atelectasis versus scarring. 3 mm calcification in left kidney without apparent hydronephrosis. Mild diverticular change in the sigmoid colon partially visualized. IMPRESSION: 1. Chronic compression deformities in the midthoracic spine, most severe in the T5 level, similar to comparison. 2. Findings suggesting mild-moderate insufficiency compressive change in L3 superior endplate. 3. No obviously acute compression deformity or apparent fracture in the thoracic and lumbar spine. 4. Degenerative spondylosis. 5. Emphysematous change and possible atelectasis versus scarring in the bilateral lung bases, although indeterminate. Fleischner Society guidelines indicate that for a solitary nodule measuring greater than 8 mm in size in a low or high risk patient, one of the following should be performed in three months: CT follow-up, biopsy, or PET-CT. Note that negative PET-CT does not exclude low-grade malignancy, and FDG uptake may be underestimated in small nodules (<1 cm), or those close to the diaphragm. For multiple nodules greater than 8 mm in size in a low risk patient, CT follow-up is recommended in 3-6 months, then consider additional CT follow- up at 18-24 months. In a high risk patient with multiple nodules greater than 8 mm in size, recommend CT follow-up in 3-6 months, with additional follow-up at 18-24 months. 6. Nonobstructing, left renal calcification. Report Dictated on --- Final --- Dictating Physician: MD AVILA WENDELL Signed Date and Time: 10/21/2019 10:25 pm Signed by: MD AVILA WENDELL Transcribed Date and Time: 10/21/2019 10:26 [facility] [place], [place] [facility], [facility] Incoming Radiology Results From [facility] - 10/21/2019 10:26 PM EDT Patient Name: GONZALO DELUCA ---CT--- Exam Date/Time 10/21/2019 21:54:[address] Spine Lumbar w/o Contrast Ordering Physician DO OTTO DAVID J Accession Number [id number] CPT4 Codes 23579 () Reason For Exam Acute onset T 10 to L1 pain. Suspect compression fracture. History compression fractures Report CT THORACIC AND LUMBAR SPINE WITHOUT CONTRAST CLINICAL INDICATION: Acute onset T 10 to L1 pain. Suspect compression fracture. History compression fractures TECHNIQUE: CT scan of the thoracic and lumbar spine without IV contrast. Multiplanar reformations. COMPARISON: CT chest, August,. FINDINGS: Diffuse osteopenia. Mild dextroconvex curvature in the thoracic spine may be positional versus soft tissue spasm. Marked, wedge-shaped compression deformity in T5 level similar to comparison. Moderate compressive change in T7 level and mild compressive change in T6 level, also similar. No significant retropulsion. Mild-moderate concavity in the L3 superior endplate without anterior cortical buckling or significant retropulsion may also represent chronic insufficiency change. Variable, multilevel degenerative disc disease and spondylosis, most pronounced in the lower thoracic and lower lumbar spine. No obviously acute compression deformity or gross malalignment of thoracic and lumbar vertebral bodies. No acute fracture. No acute, osseous central spinal canal encroachment. Paraspinal soft tissues grossly unremarkable. Diffuse, bullous emphysematous change partially visualized in the lungs. Pleuroparenchymal, nodular densities in the bilateral lung bases measuring 1.2 cm on the right and 1.3 cm on the left partially visualized and may represent atelectasis versus scarring. 3 mm calcification in left kidney without apparent hydronephrosis. Mild diverticular change in the sigmoid colon partially visualized. IMPRESSION: 1. Chronic compression deformities in the midthoracic spine, most severe in the T5 level, similar to comparison. 2. Findings suggesting mild-moderate insufficiency compressive change in L3 superior endplate. 3. No obviously acute compression deformity or apparent fracture in the thoracic and lumbar spine. 4. Degenerative spondylosis. 5. Emphysematous change and possible atelectasis versus scarring in the bilateral lung bases, although indeterminate. Fleischner Society guidelines indicate that for a solitary nodule measuring greater than 8 mm in size in a low or high risk patient, one of the following should be performed in three months: CT follow-up, biopsy, or PET-CT. Note that negative PET-CT does not exclude low-grade malignancy, and FDG uptake may be underestimated in small nodules (<1 cm), or those close to the diaphragm. For multiple nodules greater than 8 mm in size in a low risk patient, CT follow-up is recommended in 3-6 months, then consider additional CT follow- up at 18-24 months. In a high risk patient with multiple nodules greater than 8 mm in size, recommend CT follow-up in 3-6 months, with additional follow-up at 18-24 months. 6. Nonobstructing, left renal calcification. Report Dictated on --- Final --- Dictating Physician: MD AVILA WENDELL Signed Date and Time: 10/21/2019 10:25 pm Signed by: MD AVILA WENDELL Transcribed Date and Time: 10/21/2019 10:26 [place] THORACIC SPINE WO MIHAI Ton 10-21-2019 Patient Name: GONZALO DELUCA ---CT--- Exam Date/Time 10/21/2019 20:45:[address] Spine Thoracic w/o Contrast Ordering Physician DO OTTO DAVID J Accession Number [id number] CPT4 Codes 53677 () Reason For Exam Acute onset T 10 to L1 pain. Suspect compression fracture. History compression fractures Report CT THORACIC AND LUMBAR SPINE WITHOUT CONTRAST CLINICAL INDICATION: Acute onset T 10 to L1 pain. Suspect compression fracture. History compression fractures TECHNIQUE: CT scan of the thoracic and lumbar spine without IV contrast. Multiplanar reformations. COMPARISON: CT chest, August,. FINDINGS: Diffuse osteopenia. Mild dextroconvex curvature in the thoracic spine may be positional versus soft tissue spasm. Marked, wedge-shaped compression deformity in T5 level similar to comparison. Moderate compressive change in T7 level and mild compressive change in T6 level, also similar. No significant retropulsion. Mild-moderate concavity in the L3 superior endplate without anterior cortical buckling or significant retropulsion may also represent chronic insufficiency change. Variable, multilevel degenerative disc disease and spondylosis, most pronounced in the lower thoracic and lower lumbar spine. No obviously acute compression deformity or gross malalignment of thoracic and lumbar vertebral bodies. No acute fracture. No acute, osseous central spinal canal encroachment. Paraspinal soft tissues grossly unremarkable. Diffuse, bullous emphysematous change partially visualized in the lungs. Pleuroparenchymal, nodular densities in the bilateral lung bases measuring 1.2 cm on the right and 1.3 cm on the left partially visualized and may represent atelectasis versus scarring. 3 mm calcification in left kidney without apparent hydronephrosis. Mild diverticular change in the sigmoid colon partially visualized. IMPRESSION: 1. Chronic compression deformities in the midthoracic spine, most severe in the T5 level, similar to comparison. 2. Findings suggesting mild-moderate insufficiency compressive change in L3 superior endplate. 3. No obviously acute compression deformity or apparent fracture in the thoracic and lumbar spine. 4. Degenerative spondylosis. 5. Emphysematous change and possible atelectasis versus scarring in the bilateral lung bases, although indeterminate. Fleischner Society guidelines indicate that for a solitary nodule measuring greater than 8 mm in size in a low or high risk patient, one of the following should be performed in three months: CT follow-up, biopsy, or PET-CT. Note that negative PET-CT does not exclude low-grade malignancy, and FDG uptake may be underestimated in small nodules (<1 cm), or those close to the diaphragm. For multiple nodules greater than 8 mm in size in a low risk patient, CT follow-up is recommended in 3-6 months, then consider additional CT follow- up at 18-24 months. In a high risk patient with multiple nodules greater than 8 mm in size, recommend CT follow-up in 3-6 months, with additional follow-up at 18-24 months. 6. Nonobstructing, left renal calcification. Report Dictated on --- Final --- Dictating Physician: MD AVILA WENDELL Signed Date and Time: 10/21/2019 10:25 pm Signed by: MD AVILA WENDELL Transcribed Date and Time: 10/21/2019 10:26 [facility], [place] [facility], [facility] Incoming Radiology Results From [facility] - 10/21/2019 10:26 PM EDT Patient Name: GONZALO DELUCA ---CT--- Exam Date/Time 10/21/2019 20:45:[address] Spine Thoracic w/o Contrast Ordering Physician DO OTTO DAVID J Accession Number [id number] CPT4 Codes 11631 () Reason For Exam Acute onset T 10 to L1 pain. Suspect compression fracture. History compression fractures Report CT THORACIC AND LUMBAR SPINE WITHOUT CONTRAST CLINICAL INDICATION: Acute onset T 10 to L1 pain. Suspect compression fracture. History compression fractures TECHNIQUE: CT scan of the thoracic and lumbar spine without IV contrast. Multiplanar reformations. COMPARISON: CT chest, August,. FINDINGS: Diffuse osteopenia. Mild dextroconvex curvature in the thoracic spine may be positional versus soft tissue spasm. Marked, wedge-shaped compression deformity in T5 level similar to comparison. Moderate compressive change in T7 level and mild compressive change in T6 level, also similar. No significant retropulsion. Mild-moderate concavity in the L3 superior endplate without anterior cortical buckling or significant retropulsion may also represent chronic insufficiency change. Variable, multilevel degenerative disc disease and spondylosis, most pronounced in the lower thoracic and lower lumbar spine. No obviously acute compression deformity or gross malalignment of thoracic and lumbar vertebral bodies. No acute fracture. No acute, osseous central spinal canal encroachment. Paraspinal soft tissues grossly unremarkable. Diffuse, bullous emphysematous change partially visualized in the lungs. Pleuroparenchymal, nodular densities in the bilateral lung bases measuring 1.2 cm on the right and 1.3 cm on the left partially visualized and may represent atelectasis versus scarring. 3 mm calcification in left kidney without apparent hydronephrosis. Mild diverticular change in the sigmoid colon partially visualized. IMPRESSION: 1. Chronic compression deformities in the midthoracic spine, most severe in the T5 level, similar to comparison. 2. Findings suggesting mild-moderate insufficiency compressive change in L3 superior endplate. 3. No obviously acute compression deformity or apparent fracture in the thoracic and lumbar spine. 4. Degenerative spondylosis. 5. Emphysematous change and possible atelectasis versus scarring in the bilateral lung bases, although indeterminate. Fleischner Society guidelines indicate that for a solitary nodule measuring greater than 8 mm in size in a low or high risk patient, one of the following should be performed in three months: CT follow-up, biopsy, or PET-CT. Note that negative PET-CT does not exclude low-grade malignancy, and FDG uptake may be underestimated in small nodules (<1 cm), or those close to the diaphragm. For multiple nodules greater than 8 mm in size in a low risk patient, CT follow-up is recommended in 3-6 months, then consider additional CT follow- up at 18-24 months. In a high risk patient with multiple nodules greater than 8 mm in size, recommend CT follow-up in 3-6 months, with additional follow-up at 18-24 months. 6. Nonobstructing, left renal calcification. Report Dictated on --- Final --- Dictating Physician: MD AVILA WENDELL Signed Date and Time: 10/21/2019 10:25 pm Signed by: MD AVILA WENDELL Transcribed Date and Time: 10/21/2019 10:26 [place] PROGRESSon 10-19-2019 PROGRESS HNO ID: [id number] Author: Ankit Cook Service: ? Author Type: Physician Type: Progress Notes Filed: 10/23/2019 3:58 PM Note Text: TELEVISIT PROGRESS NOTE This is a telephone encounter initiated for an established patient, parent or guardian not leading to an Evaluation AND Management service or procedure within the next 24 hours or soonest available appointment. Patient name and birthday verified: Yes Location of patient: [place] Persons Present: patient PROBLEM: Presents for results Subjective: 63 yo hx vaginal bleeding. Referred by Dr. Valladares. Pap test notable for malignant cells. Pelvic US 09/27/2019 notable for dilated uterine cavity. Endometrial thickness by my measurement 1.3mm. Hypervascular endocervical/lower uterine segment lesion. 10/19/2019: EMB/ECC Endometrium and endocervix, biopsy and curettage (A, B) ?Detached fragments of squamous cell carcinoma; see comment COMMENT To further evaluate this patient's malignancy, immunohistochemical stains were performed and evaluated at the [facility] using block B1. 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 ?P53 shows wild type expression. ?ER shows moderate expression in 30% of tumor cells. ?MI is negative. ?An RNA in situ hybridization (DARION) test for high risk HPV is also positive. 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 The submitted material is fragmented and stromal invasion cannot be adequately evaluated. ?Dr. Navjot Escamilla has reviewed this case and agrees. 10/19/2019 wound culture - No growth 3 days MRI not yet completed PET not yet completed iv contrast (will be provided with radiology test) MRI Female Pelvis Inject, intravenously, once for 1 dose. No IV access, insert saline lock prior to the beginning of sedation, infusion, injection of imaging exam. Discontinue saline lock post exam. If Pt has a central line or IVAD, may access for administration according to line specific nursing protocol. Once exam is complete flush line and de-access according to line specific nursing protocol in the MR contrast administration guidelines link. Surgical Lubricant Jelly gel For MRI Female Pelvis, MRI department to provide. Administer intra-vaginal Surgilube immediately prior the MRI procedure (total amount to patient toleranace). predniSONE (DELTASONE) 20 mg tablet Take 3 tabs by mouth daily x 3 days, then 2 tabs daily x 3 days, then 1 tab daily x 3 days, then 1/2 tab daily x 4 days NaCl 0.9% Inject 2-10 mL intravenously as directed. For Echo procedure perflutren lipid microspheres (DEFINITY) 1.1 mg/mL injection (to be provided with echo procedure) Inject 1.3 mL intravenously as directed. Administration Instructions: If no IV access, insert saline lock prior to administering contrast. Discontinue saline lock post exam. If patient has central line or IVAD, may access for administration according to line specific nursing protocol. Once exam is complete, flush line and de-access per line specific nursing protocol.Diluted IV Bolus: Dilute 1.3 ml of Definity with 8.7 ml of preservative-free saline. omeprazole (PRILOSEC) 20 mg capsule Take 1 capsule by mouth once daily. oxyCODONE-acetaminophe n (PERCOCET) 7.5-325 mg tablet Take 1 tablet by mouth three times daily as needed for Pain for up to 30 days. Do not start before September 30, 2019. [START ON 10/30/2019] oxyCODONE-acetaminophe n (PERCOCET) 7.5-325 mg tablet Take 1 tablet by mouth three times daily as needed for Pain for up to 30 days. Do not start before October 30, 2019. traZODone (DESYREL) 50 mg tablet Take 2 tablets by mouth daily at bedtime. sertraline (ZOLOFT) 100 mg tablet Take 2 tablets by mouth once daily. buPROPion XL (WELLBUTRIN XL) 150 mg 24 hr tablet Take 1 tablet by mouth once daily. cyclobenzaprine (FLEXERIL) 5 mg tablet Take 1 tablet by mouth twice daily as needed. mometasone-formoterol (DULERA) 200-5 mcg/actuation inhaler Inhale 2 Puffs as instructed twice daily. aclidinium bromide (TUDORZA PRESSAIR) 400 mcg/actuation aepb inhaler Inhale 1 Puff as instructed twice daily. alendronate (FOSAMAX) 70 mg tablet Take 1 tablet by mouth one time a week. gabapentin (NEURONTIN) 300 mg capsule Take 1 capsule by mouth at bedtime as needed for up to 30 days. montelukast (SINGULAIR) 10 mg tablet Take 1 tablet by mouth daily at bedtime. albuterol HFA (PROVENTIL HFA, VENTOLIN HFA) 90 mcg/actuation inhaler INHALE 2 PUFFS BY MOUTH 4 TIMES A DAY ibuprofen (MOTRIN) 600 mg tablet Take 600 mg by mouth every 8 hours as needed for Pain. albuterol (PROVENTIL) 2.5 mg /3 mL (0.083 %) nebulizer solution fluticasone (FLONASE) 50 mcg/actuation nasal spray Use 2 Sprays in each nostril once daily. ALLERGIES Allergen Reactions - Seasonal Allergies Intolerance ROS: Gonzalo Deluca reports that she feels well. No vaginal bleeding or discharge. No shortness of breath, cough, or chest pain. No abdominal pain, nausea, vomiting, diarrhea, or constipation. No dysuria, gross hematuria, urinary frequency, urinary urgency, or incontinence. Her ECOG performance status is 3 Ankit Cook MD PHYSICAL: N/A Telephone Encounter RESULTS: ASSESSMENT: 63 yo endocervical/lower uterine segment SCC 10/19/2019 Molecular testing suggest cervical Hx vaginal bleeding, malignant cells on Pap 10/12/2019 US w dilated uterine cavity, hypervascular endocervical/lower uterine segment lesion measuring 2.3 x 1.3cm Hx COPD, 3L suppl O2 at home Possible TIA 07/2019 CAD abd stress 2018; possible NSTEMI 2017 (per pt) Mother berast CA Sister breast CA [facility] eval 10/21/[address] notable for old T5 compressions fx PLAN: EMB and ECC 10/19/2019 SCC IHC SISH cw cervical primary Pyometra 10/19/2019 Gram stain and culture negative Discussed evaluation of cervical ca vs lower uterine segment ca. MRI pelvis to delineate lesion PET CT to assess for mets Pt has appt for 2nd opinion at [facility] 1y ago brielle [facility] per pt, follow up encouraged Telephone encounter after MR and PET Ankit Cook MD 9min spent counseling the patient by telephone. [facility] 09-27-2019 [facility] HNO ID: [id number] Author: ALIYA Choi (Ct) Service: Radiology Author Type: Clinical Carton Gluing Machine Operator Type: Allied Health Filed: 09/27/2019 9:15 AM Note Text: Radiology Service Progress Note PATIENT NAME: Gonzalo Deluca DATE OF SERVICE: September 27, 2019 TIME: 9:14 AM PATIENT IDENTITY VERIFICATION COMPLETED USING TWO (2) IDENTIFIERS: Name and Date of confirmed by patient verbally. FALL SCREENING: Has the patient had 2 falls in the last year or 1 fall with injury or currently using an Ambulatory Assistive Device (Walker, Cane, Wheelchair, Crutches, etc.)? No PATIENT GENDER DATA: Female. status: : No status: NO. PATIENT RELEVANT IMPLANT DATA REVIEWED: Not Applicable RADIOLOGY DEPARTMENT: Ultrasound PERIPHERAL IV DATA: Not applicable SIGNED BY: ALIYA Choi September 27, 2019 9:14 AM [facility] US FEMALE PELVIS TRANSABD LT Don 09-27-2019 US FEMALE PELVIS TRANSABD LTD * * *Final Report* * * DATE OF EXAM: Sep 27 2019 8:58AM [facility] 1059 - US FEMALE PELVIS TRANSABD LTD / PROCEDURE REASON: N95.1-Kxtj-juicoevmuj bleeding * * * * Physician Interpretation * * * * EXAMINATION: TRANSVAGINAL AND LIMITED TRANSABDOMINAL PELVIC ULTRASOUND CLINICAL HISTORY: Postmenopausal bleeding TECHNIQUE: Sonography of the pelvis was performed by transvaginal and transabdominal (limited) techniques. Images were obtained and stored in a permanent archive. MQ: UFP_1 COMPARISON: Comparison is made to prior CT dated 03/26/2013 RESULT: Uterus size: 7.0 x 4.3 x 2.6 cm -Orientation: Anteverted -Myometrium: Slightly inhomogeneous with a small 9 x 9 x 6 mm anterior body/fundus fibroid. -Endometrial echo complex: Complex fluid is seen within the endometrial canal. Double layer technique measures 0.2 cm. Overall thickness including the fluid measures 13 mm. There is no internal vascularity. -Cervix: At the lower uterine segment and endocervical canal there is an ovoid soft tissue hypoechoic structure measuring 2.5 x 1.2 cm. There is internal vascularity. Right ovary: Not visualized. Left ovary: 13 x 10 x 9 millimeters. Normal sonographic appearance. Pelvis free fluid: None. IMPRESSION: There is an abnormal vascular soft tissue density within the expected location of the lower uterine segment/endocervical canal measuring 2.5 x 1.2 cm. Large endometrial polyp, fibroid or endometrial neoplasm would be in the differential. There is mildly complex fluid expanding the fundal endometrium. Findings could be secondary to obstruction at the lower uterine segment. Pelvic MRI may be helpful. Chemistry Faculty Member: ANGEL Transcribe Date/Time: Sep 27 2019 5:07P Dictated by : SAAD ESQUIVEL MD This examination was interpreted and the report reviewed and electronically signed by: SAAD ESQUIVEL MD on Sep 27 2019 5:14PM EST [id number] [facility] FEMALE PELVIS TRANSVAGon 09-27-2019 US FEMALE PELVIS TRANSVAG * * *Final Report* * * DATE OF EXAM: Sep 27 2019 8:58AM [facility] 1060 - US FEMALE PELVIS TRANSVAG / PROCEDURE REASON: N95.6-Wrdk-iochjzktbd bleeding * * * * Physician Interpretation * * * * EXAMINATION: TRANSVAGINAL AND LIMITED TRANSABDOMINAL PELVIC ULTRASOUND CLINICAL HISTORY: Postmenopausal bleeding TECHNIQUE: Sonography of the pelvis was performed by transvaginal and transabdominal (limited) techniques. Images were obtained and stored in a permanent archive. MQ: UFP_1 COMPARISON: Comparison is made to prior CT dated 03/26/2013 RESULT: Uterus size: 7.0 x 4.3 x 2.6 cm -Orientation: Anteverted -Myometrium: Slightly inhomogeneous with a small 9 x 9 x 6 mm anterior body/fundus fibroid. -Endometrial echo complex: Complex fluid is seen within the endometrial canal. Double layer technique measures 0.2 cm. Overall thickness including the fluid measures 13 mm. There is no internal vascularity. -Cervix: At the lower uterine segment and endocervical canal there is an ovoid soft tissue hypoechoic structure measuring 2.5 x 1.2 cm. There is internal vascularity. Right ovary: Not visualized. Left ovary: 13 x 10 x 9 millimeters. Normal sonographic appearance. Pelvis free fluid: None. IMPRESSION: There is an abnormal vascular soft tissue density within the expected location of the lower uterine segment/endocervical canal measuring 2.5 x 1.2 cm. Large endometrial polyp, fibroid or endometrial neoplasm would be in the differential. There is mildly complex fluid expanding the fundal endometrium. Findings could be secondary to obstruction at the lower uterine segment. Pelvic MRI may be helpful. Chemistry Faculty Member: [facility] Transcribe Date/Time: Sep 27 2019 5:07P Dictated by : SAAD ESQUIVEL MD This examination was interpreted and the report reviewed and electronically signed by: SAAD ESQUIVEL MD on Sep 27 2019 5:14PM EST [id number] Normal [facility] Basic Metabolic Panelon 05- Anion gap [Moles/Vol] 8 mmol/L [place] Calcium [Mass/Vol] 8.7 mg/dL 8.4 - 10. 4 mg/dL [place] Chloride [Moles/Vol] 105 mmol/L 98 - 10 7 mmol/L [place] CO2 [Moles/Vol] 26 mmol/L 22 - 30 mmol/L [place] Creatinine [Mass/Vol] 0.5 mg/dL Low 0.52 - 1.25 mg/dL [place] EGFR IF NonAfrican [place]ian >90.0 >60 mL/min [place] Comment on above: KDIGO guidelines pro vide the following GFR categories: Stage GFR(ml/min/1.73 m2) Terms G1 >=90 Normal or high G2 60-89 Mildly decreased* G3a 45-59 Mildly to moderately decreased G3b 30-44 Moderately to severely decreased G4 15-29 Severely decreased G5 <15 Kidney failure *Relative to young adult level. In the absence of evidence of kidney damage, neither GFR category G1 nor G2 fulfill the criteria for CKD. The CKD-EPI equation is validated in individuals 18 years of age and older. Currently the best equation for estimating glomerular filtration rate (GFR) from serum creatinine in children is the Bedside Vazquez equation. It is less accurate in patients with extremes of muscle mass, restriction of dietary protein, ingestion of creatine, extra-renal metabolism of creatinine, or treatment with medications that affect renal tubular creatinine secretion. GFR/1.73 sq M predicted among blacks MDRD (S/P/Bld) [Vol rate/Area] mL/min/{1.73_m2} >60 mL/min [place] Glucose [Mass/Vol] 145 mg/dL High 70 - 100 mg/dL [place] Interpretation and review of laboratory results Abnormal [place] Potassium [Moles/Vol] 4.0 mmol/L 3.5 - 5.1 mmol/L [place] Sodium [Moles/Vol] 139 mmol/L 135 - 145 mmol/L [place] Urea nitrogen [Mass/Vol] 17 mg/dL 7 - 20 mg/d L [place] Test Performed by [facility], [address] [place], [place] [id number] [place] [address] CBC Auto Differentialon 05-1 Absolute Baso # 0.0 10*3/uL 0 - 0.2 10*3/uL [place] Absolute Neut # 13.6 10*3/uL High 1.8 - 7 10*3/uL [place] Basophils/100 WBC (Bld) 0.2 % 0 - 2 % M [place] Eosinophils (Bld) [#/Vol] 0.0 10*3/uL 0 - 0.5 10*3/uL [place] Eosinophils/100 WBC (Bld) 0.0 % Low 1 - 6 % [place] Erythrocyte distribution width (RBC) [Ratio] 13.8 % 11.5 - 14.5 % [place] Granulocytes/100 WBC (Bld) 92.2 % High 40 - 80 % [place] Hematocrit (Bld) [Volume fraction] 33.9 % Low 35 - 47 % [place] Hemoglobin (Bld) [Mass/Vol] 11.1 g/dL Low 11.7 - 16 g/dL [place] Interpretation and review of laboratory results Abnormal [place] Lymphocytes (Bld) [#/Vol] 0.6 10*3/uL Low 1 - 4.3 10*3/uL [place] Lymphocytes/100 WBC (Bld) 3.9 % Low 20 - 40 % [place] MCH (RBC) [Entitic mass] 31.0 pg 26 - 34 pg [place] MCHC (RBC) [Mass/Vol] 32.8 % 32 - 36 % [place] MCV (RBC) [Entitic vol] 94.6 fL 79 - 98 fL [place] Monocytes (Bld) [#/Vol] 0.5 10*3/uL 0 - 0.8 10*3/uL [place] Monocytes/100 WBC (Bld) 3.7 % 2 - 10 % [place] Platelet mean volume (Bld) [Entitic vol] 7.5 fL 7.4 - 10.4 fL [place] Platelets (Bld) [#/Vol] 208 10*3/uL 140 - 440 10*3/uL [place] RBC (Bld) [#/Vol] 3.58 10*6/uL Low 3.8 - 5.2 10*6/uL [place] WBC (Bld) [#/Vol] 14.7 10*3/uL High 3.6 - 10.7 10*3/uL [place] Test Performed by [facility], [address] [place] [id number] [place] [address] Basic Metabolic Panelon 05- Anion gap [Moles/Vol] 8 mmol/L [place] Calcium [Mass/Vol] 8.2 mg/dL Low 8.4 - 10. 4 mg/dL [place] Chloride [Moles/Vol] 99 mmol/L 98 - 10 7 mmol/L [place] CO2 [Moles/Vol] 28 mmol/L 22 - 30 mmol/L [place] Creatinine [Mass/Vol] 0.49 mg/dL Low 0.52 - 1.25 mg/dL [place] EGFR IF NonAfrican [place]ian >90.0 >60 mL/min [place] Comment on above: KDIGO guidelines pro vide the following GFR categories: Stage GFR(ml/min/1.73 m2) Terms G1 >=90 Normal or high G2 60-89 Mildly decreased* G3a 45-59 Mildly to moderately decreased G3b 30-44 Moderately to severely decreased G4 15-29 Severely decreased G5 <15 Kidney failure *Relative to young adult level. In the absence of evidence of kidney damage, neither GFR category G1 nor G2 fulfill the criteria for CKD. The CKD-EPI equation is validated in individuals 18 years of age and older. Currently the best equation for estimating glomerular filtration rate (GFR) from serum creatinine in children is the Bedside Vazquez equation. It is less accurate in patients with extremes of muscle mass, restriction of dietary protein, ingestion of creatine, extra-renal metabolism of creatinine, or treatment with medications that affect renal tubular creatinine secretion. GFR/1.73 sq M predicted among blacks MDRD (S/P/Bld) [Vol rate/Area] mL/min/{1.73_m2} >60 mL/min [place] Glucose [Mass/Vol] 185 mg/dL High 70 - 100 mg/dL [place] Interpretation and review of laboratory results Abnormal [place] Potassium [Moles/Vol] 3.7 mmol/L 3.5 - 5.1 mmol/L [place] Sodium [Moles/Vol] 134 mmol/L Low 135 - 145 mmol/L [place] Urea nitrogen [Mass/Vol] 11 mg/dL 7 - 20 mg/d L [place] CBC Auto Differentialon 05- Absolute Baso # 0.0 10*3/uL 0 - 0.2 10*3/uL [place] Absolute Neut # 10.2 10*3/uL High 1.8 - 7 10*3/uL [place] Basophils/100 WBC (Bld) 0.0 % 0 - 2 % [place] Eosinophils (Bld) [#/Vol] 0.0 10*3/uL 0 - 0.5 10*3/uL [place] Eosinophils/100 WBC (Bld) 0.0 % Low 1 - 6 % [place] Erythrocyte distribution width (RBC) [Ratio] 14.0 % 11.5 - 14.5 % [place] Granulocytes/100 WBC (Bld) 94.9 % High 40 - 80 % [place] Hematocrit (Bld) [Volume fraction] 35.8 % 35 - 47 % [place] Hemoglobin (Bld) [Mass/Vol] 11.9 g/dL 11.7 - 16 g/dL [place] Interpretation and review of laboratory results Abnormal [place] Lymphocytes (Bld) [#/Vol] 0.3 10*3/uL Low 1 - 4.3 10*3/uL [place] Lymphocytes/100 WBC (Bld) 3.1 % Low 20 - 40 % [place] MCH (RBC) [Entitic mass] 31.3 pg 26 - 34 pg [place] MCHC (RBC) [Mass/Vol] 33.1 % 32 - 36 % [place] MCV (RBC) [Entitic vol] 94.5 fL 79 - 98 fL [place] Monocytes (Bld) [#/Vol] 0.2 10*3/uL 0 - 0.8 10*3/uL [place] Monocytes/100 WBC (Bld) 2.0 % 2 - 10 % [place] Platelet mean volume (Bld) [Entitic vol] 7.0 fL Low 7.4 - 10.4 fL [place] Platelets (Bld) [#/Vol] 180 10*3/uL 140 - 440 10*3/uL [place] RBC (Bld) [#/Vol] 3.79 10*6/uL Low 3.8 - 5.2 10*6/uL [place] WBC (Bld) [#/Vol] 10.8 10*3/uL High 3.6 - 10.7 10*3/uL [place] Test Performed by [facility], [address] [place], [address]- [place], [place] Gram Stainon 08-03-2019 INR Coag (Bld) [Relative time] Moderate epithelial cells/lpf. Many polymorphonuclear cells/lpf. Moderate gram positive cocci Rare gram negative bacilli. Few gram positive bacilli. Few yeast. [place] Test [facility]formed by [facility], [address] [place] [address] Specimen Source Comment:Sputum Expectorated [place] Legionella Antigen, Urineon 08-03-2019 LEGIONELLA ANTIGEN Legionella antigen N OT DETECTED. [place] Magnesiumon 08-03-2019 Magnesium [Mass/Vol] 2.1 mg/dL 1.6 - 2 .3 mg/dL [place] Otheron 08-03-2019 Test Performed by [facility], [address], [place], [place] [id number] [place] [address] Test Performed by [facility], [facility] [place] [address] Specimen Source Comment:Urine, clean catch [place] Respiratory Virus PCR Panelo n 08-03-2019 Respiratory Panel PCR NEGATIVE: No targe ts were detected by the [employer] Upper Respiratory Pathogens PCR Panel. PLEASE NOTE: This assay DOES NOT detect SARS-CoV-2/COVID-19. _ The [employer] Upper Respiratory Pathogens PCR Panel can detect the following targets: Adenovirus, Coronavirus 229E, Coronavirus HKU1, Coronavirus NL63, Coronavirus OC43, Human Metapneumovirus, Human Rhinovirus/Enterovirus , Influenza A, Influenza B, Parainfluenza Virus 1, Parainfluenza Virus 2, Parainfluenza Virus 3, Parainfluenza Virus 4, Respiratory Syncytial Virus, Bordetella pertussis, Bordetella parapertussis, Chlamydia pneumoniae, Mycoplasma pneumoniae [place] Test [facility]formed by [facility], [facility] [place] [address] Specimen Source Comment:Nasopharyngeal Swab [place] STREP PNEUMONIAE ANTIGENon 0 08-03-2019 STREP PNEUMONIAE ANTIGEN, URINE Strep pneumo antigen NOT DETECTED. [place] Urinalysison 08-03-2019 Appearance (U) Clear Clear NA [place] Comment on above: . Bilirubin Urine Negative Negative mg/dL [place] Comment on above: . Color (U) Yellow Lt. Yellow NA [place] Comment on above: . Glucose, Ur Normal Normal (<70) mg/dL [place] Comment on above: . Interpretation and review of laboratory results Abnormal [place] Ketones Ql (U) Negative Negative mg/dL [place] Comment on above: . LEUKOCYTES, UA Negative Negative Sandra/uL [place] Comment on above: . Mucous Threads Few Negative /[LPF] [place] Comment on above: . Nitrite, Urine Negative Negative NA [place] Comment on above: . Occult Blood,Urine Negative Negative mg/dL [place] Comment on above: . pH (U) 6.5 [pH] [place] Comment on above: . Protein (U) [Mass/Vol] 10 mg/dL Abnormal Negative Me [place] Comment on above: . RBC (U) [#/Vol] 0-2 0 - 2 /[HPF] [place] Comment on above: . Specific [place], Urine 1.014 M [place], [place] Comment on above: . Squam Epithel, UA 0-2 3 - 5 /[HPF] [place] Comment on above: . Urobilinogen, Urine 2 mg/dL Abnormal Normal (0-1) [place] Comment on above: . WBC, UA 0-2 0 - 5 /[HPF] [place] Comment on above: . Test Performed by [facility], [address], [place], [place] [address] [place] Basic Metabolic Panelon 05- Anion gap [Moles/Vol] 11 mmol/L [place] Calcium [Mass/Vol] 8.7 mg/dL 8.4 - 10. 4 mg/dL [place] Chloride [Moles/Vol] 101 mmol/L 98 - 10 7 mmol/L [place] CO2 [Moles/Vol] 26 mmol/L 22 - 30 mmol/L [place] Creatinine [Mass/Vol] 0.61 mg/dL 0.52 - 1.25 mg/dL [place] EGFR IF NonAfrican [place]ian >90.0 >60 mL/min [place] Comment on above: KDIGO guidelines pro vide the following GFR categories: Stage GFR(ml/min/1.73 m2) Terms G1 >=90 Normal or high G2 60-89 Mildly decreased* G3a 45-59 Mildly to moderately decreased G3b 30-44 Moderately to severely decreased G4 15-29 Severely decreased G5 <15 Kidney failure *Relative to young adult level. In the absence of evidence of kidney damage, neither GFR category G1 nor G2 fulfill the criteria for CKD. The CKD-EPI equation is validated in individuals 18 years of age and older. Currently the best equation for estimating glomerular filtration rate (GFR) from serum creatinine in children is the Bedside Vazquez equation. It is less accurate in patients with extremes of muscle mass, restriction of dietary protein, ingestion of creatine, extra-renal metabolism of creatinine, or treatment with medications that affect renal tubular creatinine secretion. GFR/1.73 sq M predicted among blacks MDRD (S/P/Bld) [Vol rate/Area] mL/min/{1.73_m2} >60 mL/min [place] Glucose [Mass/Vol] 118 mg/dL High 70 - 100 mg/dL [place] Interpretation and review of laboratory results Abnormal [place] Potassium [Moles/Vol] 3.5 mmol/L 3.5 - 5.1 mmol/L [place] Sodium [Moles/Vol] 139 mmol/L 135 - 145 mmol/L [place] Urea nitrogen [Mass/Vol] 9 mg/dL 7 - 20 mg/d L [place] Test Performed by [facility], [address], [place], [place] [address] [place] COVID-19on 08-02-2019 SARS-CoV-2 Not Detected Expected Result: Not Detected _ Real-time, RT-PCR performed on the [employer] System by the [facility] Microbiology Service. Negative results do not preclude SARS-CoV-2 infection and should not be used as the sole basis for treatment or other patient management decisions. This assay was developed by [employer] and distributed under an Emergency Use Authorization (EUA) granted by the FDA for the qualitative detection of SARS-CoV-2 nucleic acid. [place] Test Performed by [facility], [address] [place] [id number] Specimen Source Comment:Nasopharyngeal Swab [place] Hemogram (CBC)on 08-02-2019 Erythrocyte distribution width (RBC) [Ratio] 14.1 % 11.5 - 14.5 % [place] Hematocrit (Bld) [Volume fraction] 37.5 % 35 - 47 % [place] Hemoglobin (Bld) [Mass/Vol] 12.5 g/dL 11.7 - 16 g/dL [place] Interpretation and review of laboratory results Abnormal [place] MCH (RBC) [Entitic mass] 31.5 pg 26 - 34 pg [place] MCHC (RBC) [Mass/Vol] 33.4 % 32 - 36 % [place] MCV (RBC) [Entitic vol] 94.3 fL 79 - 98 fL [place] Platelet mean volume (Bld) [Entitic vol] 7.6 fL 7.4 - 10.4 fL [place] Platelets (Bld) [#/Vol] 196 10*3/uL 140 - 440 10*3/uL [place] RBC (Bld) [#/Vol] 3.98 10*6/uL 3.8 - 5.2 10*6/uL [place] WBC (Bld) [#/Vol] 12.6 10*3/uL High 3.6 - 10.7 10*3/uL [place] Test Performed by [facility], [address], [place], [place] [address] [place] Lactic Acid, Plasmaon 2019 Interpretation and review of laboratory results Abnormal [place] Lactate [Moles/Vol] 0.6 mmol/L Low 0.7 - 2 mmol/L [place] Test Performed by [facility], [address], [place], [place] [address] [place] Troponin x1on 08-02-2019 Troponin I.cardiac [Mass/Vol] ng/mL 0 - 0.034 ng/mL [place] Comment on above: . Test Performed by [facility], [address] [place], [place], [place] [address] [place] XR CHEST PORTABLEon 08-02-19 20 [address], [facility] Incoming Radiology Results From [facility] - 08/02/2019 6:51 PM EDT Patient Name: GONZALO DELUCA ---Diagnostic Radiology--- Exam Date/Time 08/02/2019 18:40:13 EDT Exam CR Chest Portable Ordering Physician JOANIE ALMONTE Accession Number [id number] CPT4 Codes 98429 () Reason For Exam SOB, cough Report Portable chest, single view Clinical: Shortness of breath, cough COMPARISON: October 16, 2018 portable chest Heart size is stable. No mediastinal shift. The lungs show COPD related changes. There is now evidence of a right upper lobe infiltrate, new since previous. There is also a small, patchy left basilar infiltrate laterally. No sizable pleural effusions pneumothoraces. Osseous degenerative changes. Report Dictated on --- Final --- Dictating Physician: MD CAMACHO BRIAN Signed Date and Time: 08/02/2019 6:49 pm Signed by: MD CAMACHO BRIAN Transcribed Date and Time: 08/02/2019 6:50 [place] Patient Name: GONZALO DELUCA ---Diagnostic Radiology--- Exam Date/Time 08/02/2019 18:40:13 EDT Exam CR Chest Portable Ordering Physician JOANIE ALMONTE Accession Number [id number] CPT4 Codes 67570 () Reason For Exam SOB, cough Report Portable chest, single view Clinical: Shortness of breath, cough COMPARISON: October 16, 2018 portable chest Heart size is stable. No mediastinal shift. The lungs show COPD related changes. There is now evidence of a right upper lobe infiltrate, new since previous. There is also a small, patchy left basilar infiltrate laterally. No sizable pleural effusions pneumothoraces. Osseous degenerative changes. Report Dictated on --- Final --- Dictating Physician: MD CAMACHO BRIAN Signed Date and Time: 08/02/2019 6:49 pm Signed by: MD CAMACHO BRIAN Transcribed Date and Time: 08/02/2019 6:50 [facility] [place] Vital Signs Date Time Vital Sign Value Performing Clinician Facility 08-20-2024 10:28-0400 Body height 162.6 cm Elyssa Tesfaye NP Work Phone: [facility] 08-20-2024 10:28-0400 Body mass index (BMI) [Ratio] 16 kg/m2 Elyssa Tesfaye NP Work Phone: [facility] 08-20-2024 10:28-0400 Body temperature 96.8 [degF] Elyssa Tesfaye MACHINE WIPER Work Phone: [facility] 08-20-2024 10:28-0400 Body weight 42.27 kg Elyssa Tesfaye MACHINE WIPER Work Phone: [facility] 08-20-2024 10:28-0400 Diastolic blood pressure 67 mm[Hg] Elyssa Tesfaye MACHINE WIPER Work Phone: [facility] 08-20-2024 10:28-0400 Heart rate 92 /min Elyssa Tesfaye MACHINE WIPER Work Phone: [facility] 08-20-2024 10:28-0400 SaO2% (BldA) [Mass fraction] 91 % Elyssa Tesfaye MACHINE WIPER Work Phone: [employer] Comment on above: 4Lp 08-20-2024 10:28-0400 Systolic blood pressure 105 mm[Hg] Elyssa Tesfaye MACHINE WIPER Work Phone: [employer] [facility] 08-08-2024 13:22-0400 Heart rate 88 /min Luis E Mudrakola DO Work Phone: [employer] 08-08-2024 13:22-0400 Respiratory rate 24 /min Luis E Mudrakola DO Work Phone: [facility] 08-08-2024 13:22-0400 SaO2% (BldA) [Mass fraction] 92 % Luis E Keating DO Work Phone: [facility] 08-08-2024 08:14-0400 Body temperature 97.2 [degF] Luis E Jailynla DO Work Phone: [facility] 08-08-2024 08:14-0400 Diastolic blood pressure 64 mm[Hg] Luis E Jailynla DO Work Phone: [facility] 08-08-2024 08:14-0400 Systolic blood pressure 99 mm[Hg] Luis E Glaserla DO Work Phone: [facility] 08-06-2024 14:25-0400 Body height 162.6 cm Luis E Keating DO Work Phone: [facility] 08-03-2024 21:01-0400 Body mass index (BMI) [Ratio] 15.29 kg/m2 Luis E Keating DO Work Phone: [facility] 08-03-2024 21:01-0400 Body weight 40.4 kg Luis E Keating DO Work Phone: [facility] 07-30-2024 14:53-0400 Body height 164.1 cm Herminia Case MD Work Phone: [facility] 07-30-2024 14:53-0400 Body mass index (BMI) [Ratio] 15.08 kg/m2 Herminia Case MD Work Phone: [facility] 07-30-2024 14:53-0400 Body temperature 98.4 [degF] Herminia Case MD Work Phone: [facility] 07-30-2024 14:53-0400 Body weight 40.6 kg Herminia Case MD Work Phone: [facility] 07-30-2024 14:53-0400 Diastolic blood pressure 78 mm[Hg] Herminia Case MD Work Phone: [facility] 07-30-2024 14:53-0400 Heart rate 106 /min Herminia Case MD Work Phone: [facility] 07-30-2024 14:53-0400 SaO2% (BldA) [Mass fraction] 82 % Herminia Case MD Work Phone: [facility] 07-30-2024 14:53-0400 Systolic blood pressure 120 mm[Hg] Herminia Case MD Work Phone: [facility] 04-28-2024 01:19-0500 Diastolic blood pressure 78 mm[Hg] Flako Altamirano MD Work Phone: [facility] 04-28-2024 01:19-0500 Heart rate 87 /min Flako Altamirano MD Work Phone: [facility] 04-28-2024 01:19-0500 Respiratory rate 16 /min Flako Altamirano MD Work Phone: [facility] 04-28-2024 01:19-0500 SaO2% (BldA) [Mass fraction] 96 % Flako Altamirano MD Work Phone: [facility] 04-28-2024 01:19-0500 Systolic blood pressure 119 mm[Hg] Flako Altamirano MD Work Phone: [facility] 04-27-2024 23:43-0500 Body height 160 cm Flako Altamirano MD Work Phone: [facility] 04-27-2024 23:43-0500 Body mass index (BMI) [Ratio] 19.13 kg/m2 Flako Altamirano MD Work Phone: [facility] 04-27-2024 23:43-0500 Body temperature 98.1 [degF] Flako Altamirano MD Work Phone: [facility] 04-27-2024 23:43-0500 Body weight 48.99 kg Flako Altamirano MD Work Phone: [facility] 10-16-2023 21:24-0400 Body temperature 98.1 [degF] Herminia Case MD Work Phone: [facility] 10-16-2023 21:24-0400 Diastolic blood pressure 95 mm[Hg] Herminia Case MD Work Phone: [facility] 10-16-2023 21:24-0400 Heart rate 99 /min Herminia Case MD Work Phone: [facility] 10-16-2023 21:24-0400 Respiratory rate 14 /min Herminia Case MD Work Phone: [facility] 10-16-2023 21:24-0400 SaO2% (BldA) [Mass fraction] 94 % Herminia Case MD Work Phone: [facility] 10-16-2023 21:24-0400 Systolic blood pressure 125 mm[Hg] Herminia Case MD Work Phone: [facility] 09-22-2023 07:58-0400 Body temperature 97.39 [degF] Jono Weathers MD Work Phone: [facility] 09-22-2023 07:58-0400 Diastolic blood pressure 96 mm[Hg] Jono Weathers MD Work Phone: [facility] 09-22-2023 07:58-0400 Heart rate 99 /min Jono Weathers MD Work Phone: [facility] 09-22-2023 07:58-0400 Respiratory rate 17 /min Jono Weathers MD Work Phone: [facility] 09-22-2023 07:58-0400 SaO2% (BldA) [Mass fraction] 96 % Jono Weathers MD Work Phone: [facility] 09-22-2023 07:58-0400 Systolic blood pressure 140 mm[Hg] Jono Weathers MD Work Phone: [facility] 09-20-2023 15:22-0400 Body height 165.1 cm Jono Weathers MD Work Phone: [facility] 09-20-2023 15:22-0400 Body mass index (BMI) [Ratio] 19.14 kg/m2 Jono Weathers MD Work Phone: [facility] 09-20-2023 15:22-0400 Body weight 52.16 kg Jono Weathers MD Work Phone: [facility] 09-08-2023 15:40-0400 Body height 164.1 cm Barbi Goldberg MD Work Phone: [facility] 09-08-2023 15:40-0400 Body mass index (BMI) [Ratio] 20.61 kg/m2 Barbi Goldberg MD Work Phone: [facility] 09-08-2023 15:40-0400 Body temperature 99.3 [degF] Barbi Goldberg MD Work Phone: [facility] 09-08-2023 15:40-0400 Body weight 55.5 kg Barbi Goldberg MD Work Phone: [facility] 09-08-2023 15:40-0400 Diastolic blood pressure 87 mm[Hg] Barbi Goldberg MD Work Phone: [facility] 09-08-2023 15:40-0400 Heart rate 105 /min Barbi Goldberg MD Work Phone: [facility] 09-08-2023 15:40-0400 SaO2% (BldA) [Mass fraction] 92 % Barbi Goldberg MD Work Phone: [facility] 09-08-2023 15:40-0400 Systolic blood pressure 139 mm[Hg] Barbi Goldberg MD Work Phone: [facility] 08-07-2023 18:00-0400 Diastolic blood pressure 79 mm[Hg] Herminia Case MD Work Phone: [facility] 08-07-2023 18:00-0400 Heart rate 97 /min Herminia Case MD Work Phone: [facility] 08-07-2023 18:00-0400 Respiratory rate 23 /min Herminia Case MD Work Phone: [facility] 08-07-2023 18:00-0400 SaO2% (BldA) [Mass fraction] 92 % Herminia Case MD Work Phone: [facility] 08-07-2023 18:00-0400 Systolic blood pressure 137 mm[Hg] Herminia Case MD Work Phone: [facility] 08-07-2023 14:41-0400 Body mass index (BMI) [Ratio] 20.8 kg/m2 Herminia Case MD Work Phone: [facility] 08-07-2023 14:41-0400 Body temperature 98.01 [degF] Herminia Case MD Work Phone: [facility] 08-07-2023 14:41-0400 Body weight 56.7 kg Herminia Case MD Work Phone: [facility] 05-02-2023 14:31-0500 Body height 164.1 cm Herminia Case MD Work Phone: [facility] 05-02-2023 14:31-0500 Body temperature 98.1 [degF] Herminia Case MD Work Phone: [facility] 05-02-2023 14:31-0500 Body weight 60.1 kg Herminia Case MD Work Phone: [facility] 05-02-2023 14:31-0500 Diastolic blood pressure 78 mm[Hg] Herminia Case MD Work Phone: [facility] 05-02-2023 14:31-0500 Heart rate 87 /min Herminia Case MD Work Phone: [facility] 05-02-2023 14:31-0500 SaO2% (BldA) [Mass fraction] 90 % Herminia Case MD Work Phone: [facility] 05-02-2023 14:31-0500 Systolic blood pressure 112 mm[Hg] Herminia Case MD Work Phone: [facility] 02-18-2023 09:31-0500 Body temperature 98.01 [degF] Lorenzo Orozco MD Work Phone: [facility] 02-18-2023 09:31-0500 Diastolic blood pressure 76 mm[Hg] Lorenzo Orozco MD Work Phone: [facility] 02-18-2023 09:31-0500 Heart rate 87 /min Lorenzo Orozco MD Work Phone: [facility] 02-18-2023 09:31-0500 Respiratory rate 20 /min Lorenzo Orozco MD Work Phone: [facility] 02-18-2023 09:31-0500 SaO2% (BldA) [Mass fraction] 97 % Lorenzo Orozco MD Work Phone: [facility] 02-18-2023 09:31-0500 Systolic blood pressure 128 mm[Hg] Lorenzo Orozco MD Work Phone: [facility] 02-14-2023 10:00-0500 Body mass index (BMI) [Ratio] 22.47 kg/m2 Lorenzo Orozco MD Work Phone: [facility] 02-14-2023 10:00-0500 Body weight 61.24 kg Lorenzo Orozco MD Work Phone: [facility] 02-13-2023 19:05-0500 Body height 165.1 cm Lorenzo Orozco MD Work Phone: [facility] 01-14-2023 16:00-0400 Body height 164.1 cm Herminia Case MD Work Phone: [facility] 01-14-2023 16:00-0400 Body temperature 97.59 [degF] Herminia Case MD Work Phone: [facility] 01-14-2023 16:00-0400 Body weight 62.14 kg Herminia Case MD Work Phone: [facility] 01-14-2023 16:00-0400 Diastolic blood pressure 70 mm[Hg] Herminia Case MD Work Phone: [facility] 01-14-2023 16:00-0400 Heart rate 83 /min Herminia Case MD Work Phone: [facility] 01-14-2023 16:00-0400 SaO2% (BldA) [Mass fraction] 93 % Herminia Case MD Work Phone: [facility] 01-14-2023 16:00-0400 Systolic blood pressure 100 mm[Hg] Herminia Case MD Work Phone: [facility] 11-08-2022 08:37-0400 Heart rate 87 /min Austyn Mccann DO Work Phone: [facility] 11-08-2022 08:37-0400 Respiratory rate 16 /min Austyn Mccann DO Work Phone: [employer] [employer] [facility] 11-08-2022 08:37-0400 SaO2% (BldA) [Mass fraction] 97 % Austyn Mccann DO Work Phone: [facility] 11-08-2022 07:29-0400 Body temperature 97.81 [degF] Austyn Mccann DO Work Phone: [facility] 11-08-2022 07:29-0400 Diastolic blood pressure 63 mm[Hg] Austyn Mccann DO Work Phone: [facility] 11-08-2022 07:29-0400 Systolic blood pressure 108 mm[Hg] Austyn Mccann DO Work Phone: [facility] 11-06-2022 18:36-0400 Body height 162.6 cm Austyn Mccann DO Work Phone: [facility] 11-06-2022 18:36-0400 Body mass index (BMI) [Ratio] 22.31 kg/m2 Austyn Mccann DO Work Phone: [facility] 11-06-2022 18:36-0400 Body weight 58.97 kg Austyn Mccann DO Work Phone: [facility] 10-20-2022 14:06-0400 Body height 160 cm Kisha Afshin LAMINATING PRESS OPERATOR - AN/SSN 2 4 OPERATOR Work Phone: [facility] 10-20-2022 14:06-0400 Body mass index (BMI) [Ratio] 23.56 kg/m2 Kisha Afshin LAMINATING PRESS OPERATOR - AN/SSN 2 4 OPERATOR Work Phone: [facility] 10-20-2022 14:06-0400 Body weight 60.33 kg Kisha Afshin LAMINATING PRESS OPERATOR - AN/SSN 2 4 OPERATOR Work Phone: [facility] 10-20-2022 14:06-0400 Diastolic blood pressure 83 mm[Hg] Kisha Afshin LAMINATING PRESS OPERATOR - AN/SSN 2 4 OPERATOR Work Phone: [facility] 10-20-2022 14:06-0400 Heart rate 96 /min Kisha Afshin LAMINATING PRESS OPERATOR - AN/SSN 2 4 OPERATOR Work Phone: [facility] 10-20-2022 14:06-0400 Systolic blood pressure 143 mm[Hg] Kisha Afshin LAMINATING PRESS OPERATOR - AN/SSN 2 4 OPERATOR Work Phone: [facility] 09-15-2022 14:40-0400 Body height 165.1 cm Melva Ladonna PA-C Work Phone: [facility] 09-15-2022 14:40-0400 Body temperature 97.3 [degF] Melva Ladonna PA-C Work Phone: [facility] 09-15-2022 14:40-0400 Body weight 61.1 kg Melva Ladonna PA-C Work Phone: [facility] 09-15-2022 14:40-0400 Diastolic blood pressure 78 mm[Hg] Melva [place] PA-C Work Phone: [facility] 09-15-2022 14:40-0400 Heart rate 101 /min Melva [place] PA-C Work Phone: [facility] 09-15-2022 14:40-0400 SaO2% (BldA) [Mass fraction] 95 % Melva [place] PA-C Work Phone: [facility] 09-15-2022 14:40-0400 Systolic blood pressure 133 mm[Hg] Melva Milianland PA-C Work Phone: [facility] 05-24-2022 07:52-0500 Heart rate 98 /min Martha Flores MD Work Phone: [facility] 05-24-2022 07:52-0500 Respiratory rate 16 /min Martha Flores MD Work Phone: [facility] 05-24-2022 07:52-0500 SaO2% (BldA) [Mass fraction] 92 % Martha Flores MD Work Phone: [facility] 05-24-2022 07:24-0500 Body temperature 98.49 [degF] Martha Flores MD Work Phone: [facility] 05-24-2022 07:24-0500 Diastolic blood pressure 73 mm[Hg] Martha Flores MD Work Phone: [facility] 05-24-2022 07:24-0500 Systolic blood pressure 126 mm[Hg] Martha Flores MD Work Phone: [facility] 05-22-2022 05:38-0500 Body mass index (BMI) [Ratio] 24.32 kg/m2 Martha Flores MD Work Phone: [facility] 05-22-2022 05:38-0500 Body weight 66.3 kg Martha Flores MD Work Phone: [facility] 05-21-2022 17:58-0500 Body height 165.1 cm Martha Flores MD Work Phone: [facility] 04-21-2022 14:05-0500 Body height 165.1 cm Sally Alvarez CNP Work Phone: [facility] 04-21-2022 14:05-0500 Body mass index (BMI) [Ratio] 23.63 kg/m2 Sally Alvarez CNP Work Phone: [facility] 04-21-2022 14:05-0500 Body weight 64.41 kg Sally Rocha APRN - AN/SSN 2 4 OPERATOR Work Phone: [facility] 04-21-2022 14:05-0500 Diastolic blood pressure 78 mm[Hg] Sally Rocha APRN - AN/SSN 2 4 OPERATOR Work Phone: [facility] 04-21-2022 14:05-0500 Heart rate 93 /min Sally Rocha APRN - AN/SSN 2 4 OPERATOR Work Phone: [facility] 04-21-2022 14:05-0500 Systolic blood pressure 122 mm[Hg] Sally Rocha APRN - AN/SSN 2 4 OPERATOR Work Phone: [facility] 08-06-2021 17:18-0400 Heart rate 96 /min Herminia Case MD Work Phone: [facility] 08-06-2021 17:18-0400 SaO2% (BldA) [Mass fraction] 84 % Herminia Case MD Work Phone: [facility] 08-06-2021 16:44-0400 Diastolic blood pressure 74 mm[Hg] Herminia Case MD Work Phone: [facility] 08-06-2021 16:44-0400 Systolic blood pressure 124 mm[Hg] Herminia Case MD Work Phone: [facility] 08-06-2021 16:35-0400 Body temperature 98.8 [degF] Herminia Case MD Work Phone: [facility] 08-06-2021 16:35-0400 Body weight 58.79 kg Herminia Case MD Work Phone: [facility] 10-16-2020 14:42-0400 Body temperature 98.49 [degF] Herminia Case MD Work Phone: [facility] Work Phone: 10-16-2020 14:42-0400 Diastolic blood pressure 79 mm[Hg] Herminia Case MD Work Phone: [facility] Work Phone: 10-16-2020 14:42-0400 Heart rate 85 /min Herminia Case MD Work Phone: [facility] Work Phone: 10-16-2020 14:42-0400 Respiratory rate 20 /min Herminia Case MD Work Phone: [facility] Work Phone: 10-16-2020 14:42-0400 SaO2% (BldA) [Mass fraction] 91 % Herminia Case MD Work Phone: [facility] Work Phone: 10-16-2020 14:42-0400 Systolic blood pressure 117 mm[Hg] Herminia Case MD Work Phone: [facility] Work Phone: 03-16-2020 16:32-0500 BP Diastolic 83 mm[Hg] [place] 03-16-2020 16:32-0500 BP Systolic 133 mm[Hg] [place] 03-16-2020 16:32-0500 Pulse (Heart Rate) 101 /min [place] 03-16-2020 16:32-0500 Pulse Oximetry 94 % [place] 03-16-2020 16:32-0500 Respiratory Rate 20 /min [place] 03-16-2020 11:57-0500 BMI (Body Mass Index) 23.17 kg/m2 [place] 03-16-2020 11:57-0500 Body Temperature 98.8 [degF] [place] 03-16-2020 11:57-0500 Body weight 61.24 kg [place] 02-22-2020 09:21-0500 BP Diastolic 72 mm[Hg] Ziyad [facility]ws [facility] [place] 02-22-2020 09:21-0500 BP Systolic 102 mm[Hg] Ziyad Alicia [facility] , [place] 02-22-2020 09:21-0500 Pulse (Heart Rate) 98 /min Ziyad Alicia [facility] 02-22-2020 09:21-0500 Pulse Oximetry 92 % Ziyad Alicia [facility] [place] 02-22-2020 09:21-0500 Respiratory Rate 16 /min Ziyad Alicia [facility] 02-22-2020 09:07-0500 BMI (Body Mass Index) 23.52 kg/m2 Ziyad Alicia [facility] 02-22-2020 09:07-0500 Body weight 62.14 kg Ziyad Alicia [facility] [place] 02-22-2020 09:07-0500 Height 162.6 cm Ziyad Alicia [facility] [place] 02-21-2020 14:47-0500 Body Temperature 97.59 [degF] Ziyad Alicia [facility] , [place] 02-21-2020 14:47-0500 BP Diastolic 74 mm[Hg] Ziyad Alicia [facility] , [place] 02-21-2020 14:47-0500 BP Systolic 113 mm[Hg] Ziyad Alicia [facility] [place] 02-21-2020 14:47-0500 Pulse (Heart Rate) 90 /min Ziyad Alicia [facility] 02-21-2020 14:47-0500 Respiratory Rate 20 /min Ziyad Alicia [facility], [place] 02-08-2020 09:28-0500 BMI (Body Mass Index) 23.48 kg/m2 Ziyad Alicia [facility] 02-08-2020 09:28-0500 Body Temperature 98.6 [degF] Ziyad Alicia [facility] 02-08-2020 09:28-0500 Body weight 62.05 kg Ziyad Alicia [facility] , [place] 02-08-2020 09:28-0500 BP Diastolic 81 mm[Hg] Ziyad Alicia [facility] [place] 02-08-2020 09:28-0500 BP Systolic 98 mm[Hg] Ziyad Alicia [facility] [place] 02-08-2020 09:28-0500 Height 162.6 cm Ziyad Alicia [facility] [place] 02-08-2020 09:28-0500 Pulse (Heart Rate) 104 /min Ziyad Alicia [facility] 02-08-2020 09:28-0500 Pulse Oximetry 91 % Ziyad Alicia [facility] , [place] 02-08-2020 09:28-0500 Respiratory Rate 16 /min Ziyad Alicia [facility], [place] 02-01-2020 09:08-0500 BMI (Body Mass Index) 23.49 kg/m2 Ziyad Alicia [facility] 02-01-2020 [id number] Body weight 62.41 kg Ziyad Alicia [facility] [place] 02-01-2020 [id number] Height 163 cm Ziyad Alicia [facility] [place] 01-31-2020 14:04-0500 Body Temperature 97.9 [degF] Ziyad Alicia [facility], [place] 01-31-2020 14:04-0500 BP Diastolic 82 mm[Hg] Ziyad Menendez [facility] , [place] 01-31-2020 14:04-0500 BP Systolic 117 mm[Hg] Ziyad Alicia [facility] , [place] 01-31-2020 14:04-0500 Pulse (Heart Rate) 109 /min Ziyad Alicia [facility], [place] 01-31-2020 14:04-0500 Respiratory Rate 20 /min Ziyad Alicia [facility], [place] 01-25-2020 09:25-0500 Body Temperature 99.19 [degF] Ziyad [facility] [place] 01-25-2020 09:25-0500 BP Diastolic 80 mm[Hg] Ziyad Menendez [facility] , [place] 01-25-2020 09:25-0500 BP Systolic 113 mm[Hg] Ziyad Alicia [facility] , [place] 01-25-2020 09:25-0500 Pulse (Heart Rate) 104 /min Ziyad Alicia [facility], [place] 01-25-2020 09:25-0500 Pulse Oximetry 93 % Ziyad Alicia [facility] , [place] 01-25-2020 09:25-0500 Respiratory Rate 16 /min Ziyad Alicia [facility] [place] 01-25-2020 09:21-0500 BMI (Body Mass Index) 23.22 kg/m2 Ziyad Alicia [facility] 01-25-2020 09:21-0500 Body weight 61.69 kg Ziyad Alicia [facility] [place] 01-25-2020 09:21-0500 Height 163 cm Ziyad Alicia [facility] [place] 01-24-2020 09:25-0500 BMI (Body Mass Index) 23.22 kg/m2 Ziyad Alicia [facility] 01-24-2020 09:25-0500 Body weight 61.69 kg Ziyad Menendez [facility] [place] 12-19-2019 15:00-0400 BP Diastolic 77 mm[Hg] Ziyad Alicia [facility] , [place] 12-19-2019 15:00-0400 BP Systolic 144 mm[Hg] Ziyad Menendez [facility] , [place] 12-19-2019 15:00-0400 Pulse (Heart Rate) 92 /min Ziyad Alicia [facility], [place] 12-19-2019 15:00-0400 Pulse Oximetry 99 % Ziyad Alicia [facility] , [place] 12-19-2019 15:00-0400 Respiratory Rate 18 /min Ziyad Alicia [facility], [place] 12-19-2019 11:25-0400 BMI (Body Mass Index) 23.46 kg/m2 Ziyad Alicia [facility], [place] 12-19-2019 11:25-0400 Body Temperature 99.5 [degF] Ziyad [facility]ia [facility] [place] 12-19-2019 11:25-0400 Body weight 63.96 kg Ziyad Alicia [facility] , [place] 12-19-2019 11:25-0400 Height 165.1 cm Ziyad Alicia [facility] , [place] 11-24-2019 11:45-0400 Body Temperature 98.2 [degF] [facility] [place] [place] 11-24-2019 11:45-0400 BP Diastolic 81 mm[Hg] [facility] [place] [place] 11-24-2019 11:45-0400 BP Systolic 126 mm[Hg] [facility] [place] 11-24-2019 11:45-0400 Pulse (Heart Rate) 90 /min [facility], [place] 11-24-2019 11:45-0400 Pulse [facility] 97 [facility] [place] 11-24-2019 11:45-0400 Respiratory Rate 18 /min [facility], [place] 11-22-2019 10:31-0400 Height 165.1 cm [facility], [place] 11-21-2019 21:35-0400 BMI (Body Mass Index) 25.96 kg/m2 [facility], [place] 11-21-2019 21:35-0400 Body weight 70.76 kg [facility], [place] 11-09-2019 22:55-0400 BMI (Body Mass Index) 24.96 kg/m2 [facility], [place] 11-09-2019 22:55-0400 Body Temperature 98.29 [degF] [facility], [place] 11-09-2019 22:55-0400 Body weight 68.04 kg [facility] , [place] Comment on above: from 10/21/19 11-09-2019 22:55-0400 BP Diastolic 72 mm[Hg] [facility] , [place] 11-09-2019 22:55-0400 BP Systolic 120 mm[Hg] [facility] , [place] 11-09-2019 22:55-0400 Pulse (Heart Rate) 107 /min [facility], [place] 11-09-2019 22:55-0400 Pulse Oximetry 95 % [facility] , [place] 11-09-2019 22:55-0400 Respiratory Rate 18 /min [facility] , [place] 11-05-2019 13:04-0400 BMI (Body Mass Index) 24.96 kg/m2 Ziyad Shon [facility] 11-05-2019 13:04-0400 Body Temperature 98.49 [degF] Ziyad Alicia [facility] 11-05-2019 13:04-0400 Body weight 68.04 kg Ziyad Alicia [facility] , [place] 11-05-2019 13:04-0400 BP Diastolic 83 mm[Hg] Ziayd Alicia [facility] , [place] 11-05-2019 13:04-0400 BP Systolic 124 mm[Hg] Ziyad Alicia [facility] , [place] 11-05-2019 13:04-0400 Height 165.1 cm Ziyad Alicia [facility] , [place] 11-05-2019 13:04-0400 Pulse (Heart Rate) 92 /min Ziyad Alicia [facility], [place] 11-05-2019 13:04-0400 Pulse Oximetry 89 % Ziyad Alicia [facility] , [place] 11-05-2019 13:04-0400 Respiratory Rate 16 /min Ziyad Alicia [facility], [place] 10-27-2019 17:39-0400 BP Diastolic 82 mm[Hg] [facility] [place] 10-27-2019 17:39-0400 BP Systolic 129 mm[Hg] [facility] [place] [facility] [place] 10-27-2019 17:39-0400 Pulse (Heart Rate) 87 /min Ankit Zaragoza [facility], [place] 10-27-2019 17:39-0400 Pulse Oximetry 95 % Ankit Zaragoza [facility] , [place] 10-27-2019 17:39-0400 Respiratory Rate 18 /min [facility] [place] 10-27-2019 15:07-0400 Body Temperature 98.2 [degF] [facility] [place] 10-27-2019 15:04-0400 BMI (Body Mass Index) 24.96 kg/m2 Ankit Zaragoza [facility] [place], [place] 10-27-2019 15:04-0400 Body weight 68.04 kg Ankit Zaragoza [facility] [place] 10-27-2019 15:04-0400 Height 165.1 cm [facility] [place] 10-21-2019 23:01-0400 BP Diastolic 99 mm[Hg] Jaspreet [facility] , [place] 10-21-2019 23:01-0400 BP Systolic 152 mm[Hg] Jaspreet [facility] , [place] 10-21-2019 23:01-0400 Pulse (Heart Rate) 86 /min Jaspreet [facility], [place] 10-21-2019 23:01-0400 Pulse Oximetry 95 % Jaspreet [facility] , [place] 10-21-2019 23:01-0400 Respiratory Rate 18 /min Jaspreet [facility], [place] 10-21-2019 19:59-0400 BMI (Body Mass Index) 24.96 kg/m2 Jaspreet [facility], [place] 10-21-2019 19:59-0400 Body Temperature 98.29 [degF] Jaspreet [facility], [place] 10-21-2019 19:59-0400 Body weight 68.04 kg Jaspreet [place] 08-04-2019 09:35-0400 Pulse Oximetry 95 % [facility] , [place] 08-04-2019 09:35-0400 Respiratory Rate 18 /min [place] 08-04-2019 09:08-0400 Body Temperature 98.1 [degF] [place], [place] 08-04-2019 09:08-0400 BP Diastolic 74 mm[Hg] [place], [place] 08-04-2019 09:08-0400 BP Systolic 120 mm[Hg] [place], [place] 08-04-2019 09:08-0400 Pulse (Heart Rate) 66 /min [place], [place] 08-02-2019 20:51-0400 BMI (Body Mass Index) 23.3 kg/m2 [place], [place] 08-02-2019 20:51-0400 Body weight 63.5 kg [place] 08-02-2019 20:51-0400 Height 165.1 cm [place] Encounters Encounter Date Encounter Type Care Provider Facility Start: 09-07-2024 End: 09-11-2024 Refill Herminia Case MD Work Phone: [facility] Comment on above: Refill Request Start: 09-07-2024 End: 09-07-2024 Telephone encounter Ziyad Menendez MD Work Phone: [facility] Gynecologic Oncology - [place] Start: 09-06-2024 End: 09-06-2024 ambulatory Ziyad Menendez MD Work Phone: [facility] Comment on above: Other specified comp lication of vascular prosthetic devices, implants and grafts, initial encounter (HCC) (Primary Dx); Poor venous access Start: 08-22-2024 End: 09-03-2024 ambulatory Jameson STALLINGS Facility:[facility] Comment on above: Refill Request Start: 08-20-2024 End: 08-20-2024 Office outpatient visit 25 minutes Elyssa Tesfaye NP Work Phone: [facility] Pulmonary and Sleep Medicine [facility] Comment on above: Hospital discharge f ollow-up (Primary Dx); Acute on chronic respiratory failure with hypoxia (HCC); Centrilobular emphysema (HCC); Aspiration pneumonia of left lower lobe, unspecified aspiration pneumonia type (HCC); Chronic obstructive pulmonary disease with acute lower respiratory infection (HCC); History of tobacco abuse; Severe malnutrition (CMS/HCC) (HCC) Start: 08-20-2024 End: 08-20-2024 ambulatory ELYSSA TESFAYE [facility] Start: 08-18-2024 End: 08-24-2024 Refill Herminia Case MD Work Phone: [facility] Comment on above: Refill Request Start: 08-15-2024 ambulatory Jameson STALLINGS Faci lity:[facility] Start: 08-13-2024 End: 08-14-2024 Refill Melva Juárez PA-C Work Phone: [facility] Comment on above: Refill Request Start: 08-08-2024 End: 08-08-2024 Orders Only Melva Garcia RN [facility] Pall[facility] - [place] Comment on above: Chronic obstructive pulmonary disease, unspecified COPD type (HCC) (Primary Dx); Severe malnutrition (CMS/HCC) (HCC) Start: 07-30-2024 End: 08-08-2024 Evaluation and management of inpatient Luis E Keating DO Work Phone: [facility] Cardiac Progressive Care Unit PCU 2E Comment on above: Adult failure to thr kenton (Primary Dx); Severe protein-calorie malnutrition (HCC); Closed supracondylar fracture of left humerus, initial encounter; Severe malnutrition (CMS/HCC) (HCC); Pulmonary emphysema, unspecified emphysema type (HCC); Chronic obstructive pulmonary disease, unspecified COPD type (HCC) Start: 07-30-2024 End: 07-30-2024 Office outpatient visit 25 minutes Herminia Case MD Work Phone: [facility] Comment on above: Chronic respiratory failure with hypoxia (HCC) (Primary Dx); Centrilobular emphysema (HCC); Adult failure to thrive; Severe protein-calorie malnutrition (HCC) Start: 07-30-2024 End: 07-30-2024 ambulatory HERMINIA CASE Facility:[facility] Start: 07-22-2024 End: 07-23-2024 Refill Herminia Case MD Work Phone: [facility] Comment on above: Refill Request Start: 06-30-2024 End: 07-02-2024 Telephone encounter Herminia Case MD Work Phone: [facility] Comment on above: Orders Start: 06-26-2024 End: 06-26-2024 Refill Melva Juárez PA-C Work Phone: [facility] Comment on above: Refill Request Start: 06-07-2024 End: 06-07-2024 Telephone encounter Maddi Valero LPN Work Phone: [facility] Comment on above: Home Care (SOC appro martín.) Home Care (Confirmat ion call.) Start: 06-06-2024 End: 06-06-[address] [facility] Facility:[facility] Start: 06-06-2024 End: 06-06-2024 Telemedicine consultation with patient Herminia Case MD Work Phone: [facility] Start: 06-06-2024 End: 06-06-2024 Telephone encounter Herminia Case MD Work Phone: [facility] Comment on above: Home Care Panlobular emphysema (HCC) (Primary Dx); Moderate episode of recurrent major depressive disorder (HCC); Chronic respiratory failure with hypoxia (HCC) Start: 05-26-2024 End: 05-28-2024 Refill Herminia Case MD Work Phone: [facility] Comment on above: Refill Request Start: 05-22-2024 End: 06-22-2024 ambulatory Herminia Case MD Work Phone: [facility] Start: 05-08-2024 End: 05-10-2024 Refill Melva Juárez PA-C Work Phone: [facility] Comment on above: Refill Request Start: 05-02-2024 End: 05-02-2024 [facility] Herminia Case MD Work Phone: [facility] Comment on above: Compression fracture of body of thoracic vertebra (HCC) (Primary Dx); Panlobular emphysema (HCC); Moderate episode of recurrent major depressive disorder (HCC); PAUL (generalized anxiety disorder); Chronic respiratory failure with hypoxia (HCC); Hyperlipidemia, mixed; Hyperglycemia; Other closed nondisplaced fracture of proximal end of right humerus with routine healing, subsequent encounter Start: 04-30-2024 End: 05-01-2024 Refill Herminia Case MD Work Phone: [facility] Comment on above: Refill Request Start: 04-27-2024 End: 04-28-2024 Emergency department patient visit Flako Altamirano MD Work Phone: [facility] ED Comment on above: Contusion of face, i nitial encounter (Primary Dx) Start: 04-23-2024 End: 04-24-2024 ambulatory Melva Juárez PA-C Work Phone: [facility] Comment on above: Copd meds Start: 04-06-2024 End: 04-06-2024 Refill Herminia Case MD Work Phone: [facility] Comment on above: Refill Request Start: 03-31-2024 End: 04-03-2024 Refill Herminia Case MD Work Phone: [facility] Comment on above: Refill Request Start: 03-18-2024 End: 03-20-2024 Refill Melva PARRYC Work Phone: [facility] Comment on above: Refill Request Start: 03-10-2024 End: 03-12-2024 Refill Melva PARRYC Work Phone: [facility] Comment on above: Refill Request Start: 03-09-2024 End: 03-09-2024 Refill Herminia Case MD Work Phone: [facility] Comment on above: Refill Request Start: 03-04-2024 End: 03-06-2024 Refill Herminia Case MD Work Phone: [facility] Comment on above: Refill Request Start: 03-01-2024 End: 03-05-2024 Telephone encounter Herminia Case MD Work Phone: [facility] Comment on above: Medication Problem Start: 02-06-2024 End: 02-07-2024 ambulatory Melva Juárez PA-C Work Phone: [facility] Comment on above: [place] Refill Request Start: 01-11-2024 End: 01-11-2024 Refill Brando Simon MD Work Phone: [facility] Comment on above: Refill Request Start: 01-10-2024 End: 01-11-2024 Refill Melva Juárez PA-C Work Phone: [facility] Comment on above: Refill Request Start: 01-09-2024 End: 01-11-2024 Refill Herminia Case MD Work Phone: [facility] Comment on above: Refill Request Copd med Start: 01-08-2024 End: 01-09-2024 Refill Herminia Case MD Work Phone: [facility] Comment on above: Refill Request Start: 12-30-2023 End: 12-30-2023 ambulatory Joaquina Cesar Shubham Rao LAMINATING PRESS OPERATOR.AN/SSN 2 [address] OPER[address] Work Phone: [facility] Comment on above: Panlobular emphysema (HCC) Start: 12-30-2023 End: 12-30-2023 Telemedicine consultation with patient Joaquina Cesar Shubham Rao APRN.AN/SSN 2 4 OPERATOR Work Phone: [facility] Start: 12-27-2023 End: 12-27-2023 Refill Jessica Kong LAMINATING PRESS OPERATOR.AN/SSN 2 [address] OPER[address] Work Phone: [facility] Comment on above: Refill Request Start: 12-27-2023 End: 12-27-2023 Telephone encounter Herminia aCse MD Work Phone: [facility] Comment on above: Orders Start: 12-13-2023 End: 12-14-2023 Telephone encounter Herminia Case MD Work Phone: [facility] Comment on above: Results Refill Request Start: 12-06-2023 End: 12-08-2023 Home visit Herminia Case MD Work Phone: [facility] Comment on above: Osteoporotic vertebr al collapse, with routine healing, subsequent encounter (Primary Dx) Start: 12-06-2023 End: 12-06-2023 Telephone encounter Herminia Case MD Work Phone: [facility] Comment on above: Orders Start: 11-28-2023 End: 11-28-2023 Refill Melva Juárez PA-C Work Phone: [facility] Comment on above: Refill Request Start: 11-14-2023 End: 11-15-2023 Telephone encounter Herminia Case MD Work Phone: [facility] Comment on above: Orders Refill Request Start: 11-12-2023 End: 11-12-2023 Refill Melva Juárez PA-C Work Phone: [facility] Comment on above: Refill Request Start: 11-02-2023 Refill Brando leblanc MD Work Phone: [facility] Comment on above: Refill Request Start: 10-28-2023 Telephone encounter Herminia warner MD Work Phone: [facility] Comment on above: Orders Start: 10-22-2023 Telephone encounter Herminia warner MD Work Phone: [address] [place] [address] Comment on above: Patient Update Start: 10-18-2023 Telephone encounter Herminia warner MD Work Phone: [facility] Comment on above: Orders Start: 10-16-2023 End: 10-16-2023 Emergency department patient visit HERMINIA CASE [facility] Comment on above: Fall, initial encoun ter (Primary Dx); Compression fracture of body of thoracic vertebra (HCC) Start: 10-11-2023 Home visit Herminia Mccurdy Work Phone: [facility] Comment on above: Osteoporotic vertebr al collapse, with routine healing, subsequent encounter (Primary Dx) Start: 10-10-2023 Telephone encounter Herminia warner MD Work Phone: [facility] Comment on above: Orders Start: 10-06-2023 Home visit Herminia Mccurdy Work Phone: [facility] Comment on above: Pathological fractur e of vertebra due to other osteoporosis with routine healing, subsequent encounter (Primary Dx) Start: 10-06-2023 Telephone encounter Herminia warner MD Work Phone: [facility] Comment on above: Home Care (Physical therapy delayed 1 week) Start: 10-06-2023 Unlisted evaluation and management service Herminia Case MD Work Phone: [facility] Comment on above: OPENED IN ERROR (Mariam phillip Dx) Start: 09-21-2023 Telephone encounter Herminia warner MD Work Phone: [facility] Comment on above: Patient Update Start: 09-19-2023 End: 09-22-2023 Evaluation and management of inpatient Jono Weathers MD Work Phone: [facility] Cardiac Progressive Care Unit PCU 2E Comment on above: Near syncope (Primar y Dx); Closed head injury, initial encounter; Fall, initial encounter; Compression fracture of T5 vertebra, initial encounter (HCC); Compression fracture of T7 vertebra, initial encounter (HCC); Compression fracture of T8 vertebra, initial encounter (HCC); Compression fracture of L1 vertebra, initial encounter (HCC) Start: 09-16-2023 Refill Herminia Mccurdy Work Phone: [facility] Comment on above: Refill Request Start: 09-15-2023 Refill Herminia Mccurdy Work Phone: [facility] Comment on above: Refill Request Start: 09-14-2023 Refill Melva silva PA-C Work Phone: [facility] Comment on above: Refill Request Start: 09-08-2023 End: 09-08-2023 ambulatory HERMINIA CASE Facility:[facility] Start: 09-08-2023 End: 09-08-2023 Patient encounter procedure Barbi Goldberg MD Work Phone: [facility] Comment on above: Herpes zoster withou t complication (Primary Dx) Start: 09-06-2023 Telephone encounter Herminia warner MD Work Phone: [facility] Comment on above: Electronic Communica tion (FAX from [facility] is going to be coming over that needs to be faxed back to them ) Start: 08-20-2023 Refill Herminia Mccurdy Work Phone: [facility] Comment on above: Refill Request Start: 08-07-2023 End: 08-07-2023 Emergency department patient visit Herminia Case MD Work Phone: [facility] Comment on above: Bronchitis (Primary Dx); COPD exacerbation (HCC) Start: 08-05-2023 Refill Herminia Mccurdy Work Phone: [facility] Comment on above: Refill Request Start: 07-22-2023 Refill Herminia Mccurdy Work Phone: [facility] Comment on above: Refill Request Start: 07-20-2023 Refill Melva silva PA-C Work Phone: [facility] Comment on above: Refill Request Start: 07-05-2023 ambulatory Herminia Mccurdy Work Phone: [facility] Start: 07-04-2023 Refill Gena Michaels APRN.AN/SSN 2 4 OPERATOR Work Phone: [facility] Comment on above: Refill Request Start: 07-03-2023 Refill Gena Michaels APRN.AN/SSN 2 4 OPERATOR Work Phone: [facility] Comment on above: Refill Request Start: 06-30-2023 Telephone encounter Herminia warner MD Work Phone: [facility] Comment on above: Medication Problem Start: 06-28-2023 ambulatory Herminia Mccurdy Work Phone: [facility] Comment on above: Breo Start: 06-25-2023 Refill Herminia Mccurdy Work Phone: [facility] Comment on above: Refill Request Start: 06-24-2023 Refill Herminia Mccurdy Work Phone: [facility] Comment on above: Refill Request Start: 06-22-2023 ambulatory Herminia Mccurdy Work Phone: [facility] Start: 06-10-2023 Refill Herminia Mccurdy Work Phone: [facility] Comment on above: Refill Request Start: 06-10-2023 End: 06-10-2023 [facility] Herminia Case MD Work Phone: [facility] Comment on above: Moderate episode of recurrent major depressive disorder (HCC) (Primary Dx); Panlobular emphysema (HCC); Chronic respiratory failure with hypoxia (HCC) Start: 05-26-2023 Refill Herminia Mccurdy Work Phone: [facility] Comment on above: Refill Request Start: 05-25-2023 Telephone encounter Herminia warner MD Work Phone: [facility] Comment on above: Orders Start: 05-20-2023 End: 05-20-2023 [facility] Herminia Case MD Work Phone: [facility] Comment on above: Moderate episode of recurrent major depressive disorder (HCC) (Primary Dx); Panlobular emphysema (HCC) Start: 05-19-2023 Telephone encounter Herminia warner MD Work Phone: [facility] Comment on above: Orders Start: 05-18-2023 Home visit Herminia Mccurdy Work Phone: [facility] Comment on above: Age-related osteopor osis with current pathological fracture of left femur, initial encounter (HCC) (Primary Dx) Start: 05-18-2023 Telephone encounter Herminia warner MD Work Phone: [facility] Comment on above: Orders Start: 05-09-2023 Telephone encounter Herminia warner MD Work Phone: [facility] Comment on above: Orders Start: 05-02-2023 End: 05-02-2023 Patient encounter procedure Herminia Case MD Work Phone: [facility] Comment on above: PAUL (generalized anx iety disorder) (Primary Dx); Medication monitoring encounter; Compression fracture of body of thoracic vertebra (HCC); Other closed nondisplaced fracture of proximal end of right humerus with routine healing, subsequent encounter; Chronic respiratory failure with hypoxia (HCC); Panlobular emphysema (HCC); Moderate episode of recurrent major depressive disorder (HCC) Start: 04-29-2023 Telephone encounter Herminia warner MD Work Phone: [facility] Comment on above: Medication Problem Start: 04-27-2023 ambulatory Herminia Mccurdy Work Phone: [facility] Comment on above: Panic attacks Start: 04-21-2023 Telephone encounter Kisha Ruiz calli LAMINATING PRESS OPERATOR - AN/SSN 2 4 OPERATOR Work Phone: [facility] Gynecologic Oncology Start: 04-19-2023 Telephone encounter Herminia warner MD Work Phone: [facility] Comment on above: Orders Start: 03-07-2023 Refill Herminia Mccurdy Work Phone: [facility] Comment on above: Refill Request Start: 02-13-2023 End: 02-18-2023 Evaluation and management of inpatient Lorenzo Orozco MD Work Phone: [facility] AAU 2 Comment on above: Lumbar compression f racture, closed, initial encounter (HCC) (Primary Dx); Fall, initial encounter; Multiple falls; Nondisplaced fracture of neck of left femur (HCC) Start: 02-07-2023 Refill Melva silva PA-C Work Phone: [facility] Comment on above: Refill Request Start: 02-07-2023 Telephone encounter Herminia warner MD Work Phone: [facility] Comment on above: Orders Start: 02-01-2023 ambulatory Agustina Romero [facility] Comment on above: Population Health Na vigation Outreach (/Cologuard reminder ) Start: 01-31-2023 Telephone encounter Herminia warner MD Work Phone: [facility] Comment on above: Orders Start: 01-27-2023 ambulatory Jo mariscal MA [facility] Comment on above: Population Health Na vigation Outreach ([facility]O CARE GAP) Start: 01-24-2023 Telephone encounter Herminia warner MD Work Phone: [facility] Comment on above: Orders Start: 01-21-2023 Telephone encounter Herminia warner MD Work Phone: [facility] Comment on above: Orders Start: 01-17-2023 Telephone encounter Herminia warner MD Work Phone: [facility] Comment on above: Orders Start: 01-14-2023 End: 01-14-2023 Patient encounter procedure Herminia Case MD Work Phone: [facility] Comment on above: Compression fracture of body of thoracic vertebra (HCC) (Primary Dx); Family history of breast cancer; Malignant neoplasm of exocervix (HCC); Encounter for immunization; Moderate episode of recurrent major depressive disorder (HCC); Panlobular emphysema (HCC); Other closed nondisplaced fracture of proximal end of right humerus with routine healing, subsequent encounter; Moderate malnutrition (HCC) Start: 01-07-2023 Telephone encounter Herminia warner MD Work Phone: [facility] Comment on above: appointment cancella tion Start: 01-05-2023 Telephone encounter Herminia warner MD Work Phone: [facility] Comment on above: Missed Appointment Start: 12-30-2022 Telephone encounter Herminia warner MD Work Phone: [facility] Comment on above: Orders Start: 12-28-2022 Telephone encounter Herminia warner MD Work Phone: [facility] Comment on above: Orders Start: 12-22-2022 Telephone encounter Herminia warner MD Work Phone: [facility] Comment on above: Orders Start: 12-16-2022 Refill Herminia Mccurdy Work Phone: [facility] Comment on above: Refill Request Start: 12-10-2022 Refill Melva lovell PA-C Work Phone: [facility] Comment on above: Refill Request Start: 12-09-2022 ambulatory Melva Milian land PA-C Work Phone: [facility] Comment on above: cologuard (cologuard ) Start: 12-09-2022 Telephone encounter Herminia warner MD Work Phone: [facility] Comment on above: Orders Start: 12-07-2022 Home visit Herminia Mccurdy Work Phone: [facility] Comment on above: Age-related osteopor osis with current pathological fracture of left femur with routine healing (Primary Dx) Start: 12-07-2022 Telephone encounter Herminia warner MD Work Phone: [facility] Comment on above: Orders Start: 11-29-2022 Telephone encounter Herminia warner MD Work Phone: [facility] Comment on above: Home Care Start: 11-22-2022 Refill Melva lovell PA-C Work Phone: [facility] Comment on above: Refill Request Start: 2022 Refill Herminia Mccurdy Work Phone: [facility] Comment on above: Refill Request Start: 11-17-2022 Refill Brando leblanc MD Work Phone: [facility] Comment on above: Refill Request Start: 11-15-2022 Refill Herminia Mccurdy Work Phone: [facility] Comment on above: Refill Request Start: 11-07-2022 ambulatory Herminia Mccurdy Work Phone: [facility] Comment on above: Renewals for my Breo and Luze Start: 11-06-2022 End: 11-08-2022 Evaluation and management of inpatient Austyn Mccann DO Work Phone: [facility] 4S TE[facility] Comment on above: Closed displaced int ertrochanteric fracture of left femur, initial encounter (HCC) (Primary Dx) Start: 10-27-2022 Telephone encounter Kisha mccurdy LAMINATING PRESS OPERATOR - AN/SSN 2 4 OPERATOR Work Phone: [facility]necologic [facility] Start: 10-22-2022 Refill Herminia Mccurdy Work Phone: [facility] Comment on above: Refill Request Start: 10-21-2022 Refill Herminia Mccurdy Work Phone: [facility] Comment on above: Refill Request Start: 10-20-2022 End: 10-20-2022 Office outpatient visit 25 minutes Kisha Reichod LAMINATING PRESS OPERATOR - AN/SSN 2 4 OPERATOR Work Phone: [facility] Comment on above: 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); Encounter for screening mammogram for malignant neoplasm of breast Start: 10-15-2022 Refill Jessica warner LAMINATING PRESS OPERATOR.AN/SSN 2 4 OPER[address] Work Phone: [facility] Comment on above: Refill Request Start: 09-15-2022 End: 09-15-2022 Patient encounter procedure Melva Sandoval PA-C Work Phone: [facility] Comment on above: Panlobular emphysema (HCC) (Primary Dx); COPD (chronic obstructive pulmonary disease) with acute bronchitis (HCC); Hyperlipidemia, mixed; Medication monitoring encounter; Screening for colon cancer; Medication management; Chronic midline low back pain without sciatica; DDD (degenerative disc disease), lumbar; Major depression, recurrent, chronic (HCC) Start: 08-17-2022 ambulatory Herminia Mccurdy Work Phone: [facility] Start: 07-29-2022 Refill Herminia Mccurdy Work Phone: [facility] Comment on above: Refill Request Start: 07-27-2022 Refill Herminia Mccurdy Work Phone: [facility] Comment on above: Refill Request Start: 07-14-2022 ambulatory Herminia Mccurdy Work Phone: [facility] Start: 07-02-2022 Telephone encounter Herminia warner MD Work Phone: [facility] Comment on above: Patient Update (Rupinder elled her home OT visit today due to illness ) Start: 07-01-2022 Telephone encounter Herminia warner MD Work Phone: [facility] Comment on above: Orders Start: 06-30-2022 Telephone encounter Herminia warner MD Work Phone: [facility] Comment on above: Medication Problem; Patient Update Start: 06-22-2022 ambulatory Herminia Mccurdy Work Phone: [facility] Comment on above: Sinus Problem Start: 06-22-2022 Refill Melva lovell PA-C Work Phone: [facility] Comment on above: Med Change Request Start: 06-22-2022 Telephone encounter Herminia warner MD Work Phone: [facility] Comment on above: Orders Start: 06-14-2022 Telephone encounter Herminia warner MD Work Phone: [facility] Comment on above: Orders Start: 06-03-2022 End: 06-03-2022 ambulatory Herminia Case MD Work Phone: [facility] Comment on above: Other closed nondisp laced fracture of proximal end of right humerus with routine healing, subsequent encounter (Primary Dx); Panlobular emphysema (HCC); Chronic respiratory failure with hypoxia (HCC); COPD (chronic obstructive pulmonary disease) with acute bronchitis (HCC); Major depression, recurrent, chronic (HCC); Compression fracture of body of thoracic vertebra (HCC) Start: 06-03-2022 End: 06-03-2022 Telemedicine consultation with patient Herminia Case MD Work Phone: [facility] Start: 06-01-2022 Telephone encounter Herminia warner MD Work Phone: [facility] Comment on above: Orders Start: 05-31-2022 Telephone encounter Herminia warner MD Work Phone: [facility] Comment on above: Home Care Management Start: 05-21-2022 End: 05-24-2022 Emergency department patient visit Martha Flores MD Work Phone: [facility] Comment on above: Fall, initial encoun ter (Primary Dx); Facial laceration, initial encounter; Closed fracture of neck of right humerus, initial encounter; Humeral head fracture, right, closed, initial encounter Start: 05-06-2022 Refill Donovan montes MD Work Phone: [facility] Comment on above: Refill Request Start: 04-21-2022 End: 04-21-2022 Office outpatient visit 15 minutes Sally Rocha LAMINATING PRESS OPERATOR - AN/SSN 2 4 OPERATOR Work Phone: [facility] PIPE INSPECTOR Oncology Comment on above: 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) Start: 04-19-2022 Refill Herminia Mccurdy Work Phone: [facility] Comment on above: Refill Request Start: 04-07-2022 Refill Herminia Mccurdy Work Phone: [facility] Comment on above: Refill Request Start: 04-06-2022 ambulatory [facility] [place] Comment on above: Population Health Na vigation Outreach [facility] Start: 03-08-2022 Refill Melva lovell PA-C Work Phone: [facility] Comment on above: Refill Request Start: 03-05-2022 End: 03-05-2022 ambulatory Melva Sandoval PA-C Work Phone: [facility] Comment on above: COPD (chronic obstru ctive pulmonary disease) with acute bronchitis (HCC) (Primary Dx); DDD (degenerative disc disease), lumbar; Major depression, recurrent, chronic (HCC) Start: 03-05-2022 End: 03-05-2022 Telemedicine consultation with patient Melva Sandoval PA-C Work Phone: [facility] Start: 03-05-2022 Telephone encounter Melva Sandoval PA-C Work Phone: [facility] Comment on above: Appointment Start: 03-03-2022 Telephone encounter Herminia warner MD Work Phone: [facility] Comment on above: Orders Start: 02-16-2022 ambulatory Herminia Evie Mccurdy Work Phone: [facility] Start: 02-08-2022 ambulatory Herminia Case Christine Mccurdy Work Phone: [facility] Comment on above: Muscle relaxer Refill Request Start: 02-01-2022 ambulatory Herminia Evie Mccurdy Work Phone: [facility] Comment on above: Nurse Triage Call Start: 01-29-2022 ambulatory Macarena Young er LAMINATING PRESS OPERATOR.AN/SSN 2 4 OPERATOR Work Phone: Telemedicine Comment on above: Other acute sinusiti s, recurrence not specified (Primary Dx) Start: 01-13-2022 Refill Herminianorma Mccurdy Work Phone: [facility] Comment on above: Refill Request Start: 12-09-2021 ambulatory Herminia Case [facility] Start: 12-08-2021 ambulatory Herminia Evie Mccurdy Work Phone: [facility] Comment on above: Breo Start: 11-26-2021 Refill Herminia Evie Mccurdy Work Phone: [facility] Comment on above: Refill Request Start: 10-27-2021 Refill Melva lovell PA-C Work Phone: [facility] Comment on above: Refill Request Start: 10-18-2021 Refill Herminia Evie Mccurdy Work Phone: [facility] Comment on above: Refill Request Start: 10-14-2021 ambulatory Herminia Evie [facility] Start: 10-14-2021 End: 10-14-2021 Subsequent hospital visit by physician Ziyad Menendez MD Work Phone: [facility] Med Onc Comment on above: 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); Abnormal chest CT; Other specified complication of vascular prosthetic devices, implants and grafts, initial encounter (HCC); Poor venous access Malignant neoplasm o f exocervix (HCC); Abnormal findings on diagnostic imaging of other specified body structures; Abnormal chest CT Start: 10-13-2021 Telephone encounter Herminia warner MD Work Phone: [facility] Comment on above: Orders ([facility]-Oxy gen order.) Start: 08-26-2021 Refill Jessica warner APRN.AN/SSN 2 4 OPERATOR Work Phone: [facility] Comment on above: Refill Request Start: 08-07-2021 Telephone encounter Herminia warner MD Work Phone: [facility] Comment on above: Patient Question Start: 08-06-2021 End: 08-06-2021 Patient encounter procedure Herminia Case MD Work Phone: [facility] Comment on above: Panlobular emphysema (HCC) (Primary Dx); Encounter for screening mammogram for malignant neoplasm of breast; Chronic respiratory failure with hypoxia (HCC); Medication monitoring encounter; Major depression, recurrent, chronic (HCC); Compression fracture of body of thoracic vertebra (HCC); Chronic midline low back pain without sciatica; Screening for lipid disorders; Vitamin D deficiency; Pulmonary nodule, right Start: 08-06-2021 Telephone encounter Herminia warner MD Work Phone: [facility] Comment on above: Orders ([facility] ) Start: 08-04-2021 ambulatory Herminia Case [facility] Start: 07-28-2021 Refill Jessica warner APRN.AN/SSN 2 4 OPERATOR Work Phone: [facility] Comment on above: Refill Request Start: 07-01-2021 Refill Melva lovell PA-C Work Phone: 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); Poor venous access Malignant neoplasm o f exocervix (HCC); Lung nodule seen on imaging study Start: 10-16-2020 End: 10-16-2020 Emergency department patient visit Herminia Case MD Work Phone: [facility] Comment on above: Closed fracture of c occyx, initial encounter (HCC) (Primary Dx); Contusion of right elbow, initial encounter Start: 09-24-2020 End: 09-24-2020 Subsequent hospital visit by physician Ziyad Menendez MD Work Phone: [facility] CT Scan Comment on above: Arrived Poor venous access ( Primary Dx); Malignant neoplasm of exocervix (HCC) Start: 06-09-2020 End: 06-09-2020 Subsequent hospital visit by physician Ziyad Menendez Work Phone: 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); Poor venous access Start: 06-06-2020 End: 06-06-2020 Subsequent hospital visit by physician Ziyad Menendez Work Phone: [facility] CT Scan Comment on above: Abnormal findings on diagnostic imaging of other specified body structures; Abnormal CT of the chest Start: 03-16-2020 End: 03-16-2020 Emergency department patient visit Tani French Jake Work Phone: [facility] Comment on above: COPD exacerbation (H CC) (Primary Dx); Bronchitis Start: 03-10-2020 End: 03-10-2020 Subsequent hospital visit by physician Ziyad Menendez Work Phone: [facility] CT Scan Comment on above: Malignant neoplasm o f exocervix (HCC); Lung nodule seen on imaging study Start: 03-03-2020 End: 03-03-2020 Subsequent hospital visit by physician Burke Washburn Work Phone: [facility] Rad Onc Start: 02-29-2020 End: 02-29-2020 Subsequent hospital visit by physician Burke Washburn Work Phone: [facility] Start: 02-28-2020 End: 02-28-2020 Subsequent hospital visit by physician Burke Washburn Work Phone: [facility] Start: 02-26-2020 End: 02-26-2020 Subsequent hospital visit by physician Burke Diezer Work Phone: [facility] Start: 02-25-2020 End: 02-25-2020 Subsequent hospital visit by physician Burke Diezer Work Phone: [facility] Start: 02-22-2020 End: 02-22-2020 Subsequent hospital visit by physician Burke Diezer Work Phone: [facility] Comment on above: 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) Start: 02-07-2020 End: 02-07-2020 Subsequent hospital visit by physician Ziyad Menendez Work Phone: [facility] Comment on above: 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); Poor venous access Start: 02-06-2020 End: 02-07-2020 Subsequent hospital visit by physician Burke Diezer Work Phone: [facility] Start: 02-05-2020 End: 02-05-2020 Subsequent hospital visit by physician Burke Washburn Work Phone: [facility] Start: 02-04-2020 End: 02-04-2020 Subsequent hospital visit by physician Burke Washburn Work Phone: [facility] Start: 02-01-2020 End: 02-01-2020 Subsequent hospital visit by physician Ziyad Menendez Work Phone: [facility] Comment on above: 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 Comment on above: Poor venous access ( Primary Dx); Malignant neoplasm of exocervix (HCC) Start: 01-31-2020 End: 01-31-2020 Subsequent hospital visit by physician Burke Washburn Work Phone: [facility] Start: 01-29-2020 End: 01-29-2020 Subsequent hospital visit by physician Burke Washburn Work Phone: [facility] Start: 01-25-2020 End: 01-25-2020 Subsequent hospital visit by physician Ziyad Menendez Work Phone: [facility] Comment on above: 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) Start: 01-24-2020 End: 01-24-2020 Subsequent hospital visit by physician Ziyad Menendez Work Phone: [facility] Comment on above: Poor venous access ( Primary Dx); Malignant neoplasm of exocervix (HCC) Start: 01-22-2020 End: 01-22-2020 Subsequent hospital visit by physician Burke Washburn Work Phone: [facility] Start: 01-17-2020 End: 01-17-2020 Subsequent hospital visit by physician Ziyad Menendez Work Phone: [facility] Comment on above: 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); Poor venous access Start: 01-17-2020 End: 01-17-2020 Subsequent hospital visit by physician Burke Washburn Work Phone: [facility] Start: 01-15-2020 End: 01-15-2020 Subsequent hospital visit by physician Burke Diezer Work Phone: [facility] Start: 01-14-2020 End: 01-14-2020 Subsequent hospital visit by physician Burke Washburn Work Phone: [facility] Start: 01-11-2020 End: 01-11-2020 Subsequent hospital visit by physician Burke Washburn Work Phone: [facility] Start: 01-09-2020 End: 01-09-2020 Subsequent hospital visit by physician Burke Diezer Work Phone: [facility] Start: 12-26-2019 End: 12-26-2019 Subsequent hospital visit by physician Burke Washburn Work Phone: [facility] Start: 12-26-2019 End: 12-26-2019 Subsequent hospital visit by physician Burke Washburn Work Phone: [facility] Start: 12-19-2019 End: 12-20-2019 Subsequent hospital visit by physician Ziyad Menendez Work Phone: [facility] Cath [facility] IR Lab Comment on above: Malignant neoplasm o f exocervix (HCC) Start: 12-11-2019 End: 12-11-2019 Subsequent hospital visit by physician Burke Washburn Work Phone: [facility] Start: 11-21-2019 End: 11-24-2019 Evaluation and management of inpatient Ray Barroso Work Phone: [facility] 4S TELEMETRY Comment on above: Right arm weakness ( Primary Dx); Pulmonary emphysema, unspecified emphysema type (HCC) Start: 11-10-2019 End: 11-10-2019 Subsequent hospital visit by physician Herminia Case Work Phone: [facility] Comment on above: Leg swelling Start: 11-10-2019 End: 11-10-2019 Subsequent hospital visit by physician Tani Joseph Work Phone: [facility] Ultrasound Start: 11-09-2019 End: 11-09-2019 Emergency department patient visit Tani Madeleine Joseph Work Phone: [facility] Comment on above: Leg swelling (Primar y Dx) Start: 11-05-2019 End: 11-05-2019 Subsequent hospital visit by physician Ziyad Menendez Work Phone: [facility] Pre-Admit Testing Comment on above: Pre-op testing (Prim tom Dx) Start: 10-27-2019 End: 10-27-2019 Emergency department patient visit Ankit Zaragoza Work Phone: [facility] Comment on above: Compression fracture of L3 lumbar vertebra, sequela (Primary Dx); Acute exacerbation of chronic low back pain Start: 10-21-2019 End: 10-21-2019 Emergency department patient visit Jaspreet Ferris Wayne Work Phone: [facility] Comment on above: Compression fracture of lumbar vertebra, initial encounter, unspecified lumbar vertebral level (HCC) (Primary Dx) Start: 08-02-2019 End: 08-04-2019 Evaluation and management of inpatient Joanie Johnson Work Phone: [facility] TELEMETRY Procedures Date Procedure Procedure Detail Performing Clinician Start: 08-20-2024 Follow-up visit HERMINIA REYES Start: 08-08-2024 Urnls dip stick/tabl et reagent auto microscopy Rena Beverly MD Work Phone: Start: 08-08-2024 Radiologic exam chest 2 views Rena Beverly MD Work Phone: Start: 08-08-2024 Basic metabolic pane l calcium total Rena Beverly MD Work Phone: Start: 08-07-2024 Basic metabolic pane l calcium total Rena Beverly MD Work Phone: Start: 08-06-2024 End: 08-06-2024 Basic metabolic panel calcium total Rena Beverly MD Work Phone: Start: 08-05-2024 Basic metabolic pane l calcium total Rena Beverly MD Work Phone: Start: 08-04-2024 Basic metabolic pane l calcium total Rena Beverly MD Work Phone: Start: 08-01-2024 Respiratory pathogen s DNA and RNA panel - Lower respiratory specimen by MILANA with non-probe detection Leann Cross LAMINATING PRESS OPERATOR - AN/SSN 2 4 OPERATOR Work Phone: Start: 08-01-2024 Smr prim src gram/gi emsa stain bct fungi/cell Leann Cross LAMINATING PRESS OPERATOR - AN/SSN 2 4 OPERATOR Work Phone: Start: 07-31-2024 Ct abdomen & pelvis w/contrast material Lauren Serna MD Work Phone: Start: 07-31-2024 Respiratory pathogen s DNA and RNA panel - Nasopharynx by MILANA with non-probe detection Lauren Serna MD Work Phone: Start: 07-30-2024 Urnls dip stick/tabl et reagent auto microscopy Luis E Mudrakola DO Work Phone: Start: 07-30-2024 Radiologic exam ches t single view Luis E Mudrakola DO Work Phone: Start: 07-30-2024 Radex elbow 2 views Vis hnu Mudrakola DO Work Phone: Start: 07-30-2024 Basic metabolic pane l calcium total Luis E Mudrakola DO Work Phone: Start: 07-30-2024 C-reactive protein Lance Serna MD Work Phone: Start: 07-30-2024 Ecg routine ecg w/le ast 12 lds trcg only w/o i&r Luis E Mudrakola DO Work Phone: Start: 07-30-2024 Application long arm splint shoulder hand Luis E Mudrakola DO Work Phone: Start: 04-28-2024 Ct cervical spine w/ o contrast material Flako Altamirano MD Work Phone: Start: 04-28-2024 Ct head/brain w/o co ntrast material Flako Altamirano MD Work Phone: Start: 04-28-2024 Radex elbow complete minimum 3 views Flako Altamirano MD Work Phone: Start: 04-27-2024 Ecg routine ecg w/le ast 12 lds trcg only w/o i&r Flako Altamirano MD Work Phone: Start: 04-27-2024 Basic metabolic pane l calcium total Flako Altamirano MD Work Phone: Start: 10-16-2023 Radex hip unilateral with pelvis 2-3 views Janneth Hartley PA-C Work Phone: Start: 10-16-2023 Ct thorax w/o contra st material Janneth Hartley PA-C Work Phone: Start: 09-22-2023 Basic metabolic pane l calcium total Lauren Serna MD Work Phone: Start: 09-21-2023 Basic metabolic pane l calcium total Lauren Serna MD Work Phone: Start: 09-20-2023 Echo tthrc r-t 2d w/ wom-mode compl spec&colr d Lauren Serna MD Work Phone: Start: 09-20-2023 Ecg routine ecg w/le ast 12 lds trcg only w/o i&r Nickolas Marrreo MD Work Phone: Start: 09-20-2023 Basic metabolic pane l calcium total Lauren Serna MD Work Phone: Start: 09-19-2023 Assay of magnesium Lance Serna MD Work Phone: Start: 09-19-2023 Urinalysis complete panel - Urine Heydi Ceballos MD Work Phone: Start: 09-19-2023 Urnls dip stick/tabl et reagent auto microscopy Heydi Ceballos MD Work Phone: Start: 09-19-2023 Blood gases any comb ination ph pco2 po2 co2 hco3 Heydi Ceballos MD Work Phone: Start: 09-19-2023 End: 09-19-2023 Ct cervical spine w/o contrast material Heydi Ceballos MD Work Phone: Start: 09-19-2023 Ct head/brain w/o co ntrast material Heydi Ceballos MD Work Phone: Start: 09-19-2023 Radiologic exam chest 2 views Heydi Ceballos MD Work Phone: Start: 09-19-2023 Radiologic examinati on pelvis 1/2 views Heydi Ceballos MD Work Phone: Start: 09-19-2023 Comprehensive metabolic panel Heydi Ceballos MD Work Phone: Start: 09-19-2023 Ecg routine ecg w/le ast 12 lds trcg only w/o i&r Heydi Ceballos MD Work Phone: Start: 08-07-2023 Bacteria identified in Blood by Culture Amelie FELIX Work Phone: Start: 08-07-2023 Radiologic exam ches t single view Amelie FELIX Work Phone: Start: 08-07-2023 SARS-COV-2, FLU A/B, AND RSV COMBO Amelie FELIX Work Phone: Start: 08-07-2023 Bacteria identified in Blood by Culture Amelie FELIX Work Phone: Start: 08-07-2023 Comprehensive metabolic panel Amelie FELIX Work Phone: Start: 08-07-2023 Ecg routine ecg w/le ast 12 lds trcg only w/o i&r Lorenzo Orozco MD Work Phone: Start: 05-02-2023 Drug tst prsmv instr mnt chem analyzers pr date Herminia Case MD Work Phone: Start: 02-18-2023 SARS-CoV-2 (COVID-19 ) Ag [Presence] in Respiratory specimen by Rapid immunoassay Earlene Echavarria MD Work Phone: Start: 02-18-2023 Basic metabolic pane l calcium total Earlene Echavarria MD Work Phone: Start: 02-17-2023 Bone &/joint imaging limited area Betsey Gresham MD Work Phone: Start: 02-17-2023 Basic metabolic pane l calcium total Earlene Echavarria MD Work Phone: Start: 02-16-2023 Basic metabolic pane l calcium total Earlene Echavarria MD Work Phone: Start: 02-15-2023 Basic metabolic pane l calcium total Earlene Echavarria MD Work Phone: Start: 02-14-2023 25 hydroxy includes fractions if performed Lauren Serna MD Work Phone: Start: 02-13-2023 Basic metabolic pane l calcium total Lorenzo Orozco MD Work Phone: Start: 02-13-2023 End: 02-13-2023 Radex spine lumbosacral 2/3 views Lorenzo Orozco MD Work Phone: Start: 11-08-2022 Basic metabolic pane l calcium total Andres Ventura MD Work Phone: Start: 11-07-2022 Urinalysis complete panel - Urine Andres Ventura MD Work Phone: Start: 11-07-2022 Urnls dip stick/tabl et rgnt auto w/o microscopy Raul Whipple DO Work Phone: Start: 11-07-2022 OXYGEN THERAPY Ray Mendez APRN - ARMATURE WINDER REPAIR Work Phone: Start: 11-07-2022 FL GUIDANCE OR USE O NLY - NON-RESULTABLE Andres Ventura MD Work Phone: Start: 11-07-2022 End: 11-07-2022 Prq skel fixj femoral fx prox end neck Andres Ventura MD Work Phone: Start: 11-07-2022 End: 11-07-2022 Basic metabolic panel calcium total Raul Whipple DO Work Phone: Start: 11-06-2022 Ecg routine ecg w/le ast 12 lds trcg only w/o i&r Raul Whipple DO Work Phone: Start: 11-06-2022 Basic metabolic pane l calcium total Austyn Mccann DO Work Phone: Start: 11-06-2022 End: 11-06-2022 Radex ribs unilateral 2 views Austyn Mccann DO Work Phone: Start: 10-20-2022 Microscopic observat ion [Identifier] in Cervix by Cyto stain Kisha Pepe LAMINATING PRESS OPERATOR - AN/SSN 2 4 OPERATOR Work Phone: Start: 09-15-2022 Blood count complete auto&auto difrntl wbc Melva Sandoval PA-C Work Phone: Start: 09-15-2022 Lipid panel Bulk Order Provider Start: 09-15-2022 Lipid 1996 panel - S soniya or Plasma Herminia Case MD Work Phone: Start: 05-24-2022 Basic metabolic pane l calcium total Teresa Cedillo MD Work Phone: Start: 05-23-2022 Basic metabolic pane l calcium total Dianne Dale Work Phone: Start: 05-22-2022 Basic metabolic pane l calcium total Dianne Dale Work Phone: Start: 05-21-2022 Ecg routine ecg w/le ast 12 lds trcg only w/o i&r Martha Flores MD Work Phone: Start: 05-21-2022 Basic metabolic pane l calcium total Martha Flores MD Work Phone: Start: 05-21-2022 Ct cervical spine w/ o contrast material Martha Flores MD Work Phone: Start: 05-21-2022 Ct head/brain w/o co ntrast material Martha Flores MD Work Phone: Start: 05-21-2022 Radiologic exam ches t single view Martha Flores MD Work Phone: Start: 05-21-2022 End: 05-21-2022 Radex shoulder complete minimum 2 views Martha Flores MD Work Phone: Start: 05-21-2022 PB ED PLACEHOLDER Veena Flores MD Work Phone: Start: 10-14-2021 Basic metabolic pane l calcium total Ziyad Menendez MD Work Phone: Start: 09-17-2021 Microscopic observat ion [Identifier] in Cervix by Cyto stain Ziyad Menendez MD Work Phone: Start: 08-06-2021 Drug tst prsmv instr mnt chem analyzers pr date Herminia Case MD Work Phone: Start: 12-26-2020 Creatinine blood Janet Menendez MD Work Phone: Start: 10-16-2020 Radex spine lumbosac ral 2/3 views Lauren Lutz LAMINATING PRESS OPERATOR - AN/SSN 2 4 OPERATOR Work Phone: Start: 09-24-2020 Ct thorax w/contrast material Ziyad Menendez MD Work Phone: Start: 06-06-2020 Creatinine other source Ziyad Menendez Work Phone: Start: 03-16-2020 Nebulizer therapy Amelie Soliz Work Phone: Start: 03-16-2020 Radiologic exam ches t single view Amelie Soliz Work Phone: Start: 03-16-2020 COVID-19, RAPID Amelie sarmiento Work Phone: Start: 03-16-2020 Assay of troponin quantitative Amelie Soliz Work Phone: Start: 03-16-2020 Blood count complete auto&auto difrntl wbc Amelie Soliz Work Phone: Start: 03-16-2020 Comprehensive metabolic panel Amelie Soliz Work Phone: Start: 03-16-2020 Natriuretic peptide Amelie Soliz Work Phone: Start: 03-16-2020 RBC morphology findi ng Nom (Bld) Amelie Soliz Work Phone: Start: 03-16-2020 Ecg routine ecg w/le ast 12 lds w/i&r Amelie Soliz Work Phone: Start: 02-21-2020 Assay of magnesium Zion Menendez Work Phone: Start: 02-21-2020 Blood count complete auto&auto difrntl wbc Ziyad Menendez Work Phone: Start: 02-21-2020 Comprehensive metabolic panel Ziyad Menendez Work Phone: Start: 02-07-2020 Blood count complete auto&auto difrntl wbc Ziyad Menendez Work Phone: Start: 02-07-2020 Assay of magnesium Zion Menendez Work Phone: Start: 02-07-2020 Comprehensive metabolic panel Ziyad Menendez Work Phone: Start: 01-31-2020 Assay of magnesium Zion Menendez Work Phone: Start: 01-31-2020 Blood count complete auto&auto difrntl wbc Ziyad Menendez Work Phone: Start: 01-31-2020 Comprehensive metabolic panel Ziyad Menendez Work Phone: Start: 01-24-2020 Assay of magnesium Zion Menendez Work Phone: Start: 01-24-2020 Blood count complete auto&auto difrntl wbc Ziyad Menendez Work Phone: Start: 01-24-2020 Comprehensive metabolic panel Ziyad Menendez Work Phone: Start: 01-17-2020 Assay of magnesium Zion Menendez Work Phone: Start: 01-17-2020 Blood count complete auto&auto difrntl wbc Ziyad Menendez Work Phone: Start: 01-17-2020 Comprehensive metabolic panel Ziyad Menendez Work Phone: Start: 12-26-2019 CT GUIDANCE RADIOLOGY THERAPY Burke Washburn Work Phone: Start: 12-19-2019 Radiologic exam ches t single view Ross Griffith Work Phone: Start: 12-19-2019 Special treatments a nd procedures Ziyad Menendez Work Phone: Start: 11-24-2019 BASIC METABOLIC PANE L W/ REFLEX TO MG FOR LOW K Aparna Walter Work Phone: Start: 11-24-2019 Blood count complete auto&auto difrntl wbc Aparna Walter Work Phone: Start: 11-23-2019 Duplex scan extracra nial art compl bi study Aparna Walter Work Phone: Start: 11-23-2019 Echo tthrc r-t 2d w/ wom-mode compl spec&colr d Lauren Serna Work Phone: Start: 11-23-2019 BASIC METABOLIC PANE L W/ REFLEX TO MG FOR LOW K Aparna Walter Work Phone: Start: 11-23-2019 Blood count complete auto&auto difrntl wbc Aparna Walter Work Phone: Start: 11-22-2019 Dup-scan xtr veins unilateral/limited study Lauren Serna Work Phone: Start: 11-22-2019 Electroencephalogram w/rec awake&asleep Chad Magallanes Work Phone: Start: 11-22-2019 Assay of magnesium Lance Serna Work Phone: Start: 11-22-2019 Blood count complete auto&auto difrntl wbc Lauren Serna Work Phone: Start: 11-22-2019 Blood count complete automated Lauren Serna Work Phone: Start: 11-22-2019 Hemoglobin glycosylated a1c Lauren Serna Work Phone: Start: 11-22-2019 Lipid panel Lauren booth Work Phone: Start: 11-21-2019 Speech and language therapy regime Lauren Serna Work Phone: Start: 11-21-2019 Ct head/brain w/o co ntrast material Ray B Lafountain Work Phone: Start: 11-21-2019 Assay of magnesium Livan olas B Lafountain Work Phone: Start: 11-21-2019 Assay of troponin quantitative Ray B Lafountain Work Phone: Start: 11-21-2019 Blood count complete auto&auto difrntl wbc Ray B Lafountain Work Phone: Start: 11-21-2019 Prothrombin time Lacey as B Lafountain Work Phone: Start: 11-21-2019 Thromboplastin time partial plasma/whole blood Ray B Lafountain Work Phone: Start: 11-21-2019 Oxygen therapy [[facility] Ray B Lafountain Work Phone: Start: 11-21-2019 Ecg routine ecg w/le ast 12 lds w/i&r Ray B Lafountain Work Phone: Start: 11-21-2019 Gluc bld gluc mntr d ev cleared fda spec home use Unknown Provider Result Start: 11-18-2019 Microscopic examinat ion of blood, culture Comment on above: Order Comment: Speci men Source Comment:Blood Performed By: #### C /BLT ####[facility] Zeetl [address] [id number] Start: 11-07-2019 H/O: hysterectomy S/P hysterectomy C venkat Rocha LAMINATING PRESS OPERATOR - AN/SSN 2 4 OPERATOR Work Phone: Start: 11-06-2019 H/O: hysterectomy S/P hysterectomy S spike Menendez MD Work Phone: Start: 11-05-2019 Blood typing serologic abo Macarena Chakraborty Work Phone: Start: 10-27-2019 Assay of lipase Ankit Bren wilksadwoa Work Phone: Start: 10-27-2019 Basic metabolic pane l calcium total Ankit Zaragoza Work Phone: Start: 10-27-2019 Blood count complete auto&auto difrntl wbc Ankit Zaragoza Work Phone: Start: 10-27-2019 Hepatic function panel Ankit Zaragoza Work Phone: Start: 10-27-2019 Computed tomography of abdomen and pelvis with contrast Ankit Zaragoza Work Phone: Start: 10-21-2019 Ct lumbar spine w/o contrast material Everett Wayne Work Phone: Start: 10-21-2019 Ct thoracic spine w/ o contrast material Jaspreet Ferris Wayne Work Phone: Start: 08-04-2019 Basic metabolic pane l calcium total Roland Ortiz Work Phone: Start: 08-04-2019 Blood count complete auto&auto difrntl wbc Roland Ortiz Work Phone: Start: 08-03-2019 Assay of magnesium Lance Serna Work Phone: Start: 08-03-2019 Basic metabolic pane l calcium total Lauren Serna Work Phone: Start: 08-03-2019 Blood count complete auto&auto difrntl wbc Lauren Serna Work Phone: Start: 08-02-2019 Smr prim src gram/gi emsa stain bct fungi/cell Lauren Serna Work Phone: Start: 08-02-2019 Virus centrifuge enh ncd id imfluor stain ea Lauren Serna Work Phone: Start: 08-02-2019 Iaad ia mult step me thod nos each organism Lauren Serna Work Phone: Start: 08-02-2019 STREP PNEUMONIAE ANTIGEN Lauren Serna Work Phone: Start: 08-02-2019 Urnls dip stick/tabl et rgnt auto w/o microscopy Joanie R Alex Work Phone: Start: 08-02-2019 MDI TREATMENT Joanie R Alex Work Phone: Start: 08-02-2019 Radiologic exam ches t single view Joanie R Alex Work Phone: Start: 08-02-2019 Ecg routine ecg w/le ast 12 lds w/i&r Joanie R Alex Work Phone: Start: 08-02-2019 Assay of lactate Quenti n R Alex Work Phone: Start: 08-02-2019 COVID-19 Joanie R Alex Work Phone: Start: 08-02-2019 Iadna respiratry pro be & rev trnscr 12-25 target Joanie R Alex Work Phone: Start: 08-02-2019 Assay of troponin quantitative Joanie R Alex Work Phone: Start: 08-02-2019 Basic metabolic pane l calcium total Joanie R Alex Work Phone: Start: 08-02-2019 Blood count complete automated Joanie R Alex Work Phone: Start: 08-02-2019 CULTURE, BLOOD 1 Quenti n R Alex Work Phone: Start: 08-02-2019 Culture bacterial bl ood aerobic w/id isolates Joanie R Alex Work Phone: Start: 08-26-2017 Mammography Flako carlson MD Work Phone: Plan of Treatment Date Care Activity Detail Author Start: 10-21-2027 Screening for malign ant neoplasm of cervix [facility] Start: 09-16-2027 Lipid 1996 panel - S soniya or Plasma Lipid Screening [facility] Start: 09-16-2027 Lipid panel Lipid Screening [facility] Start: 09-16-2027 LIPID SCREEN LIPID SCREEN [facility] Start: 08-09-2027 Diabetes Screening Diabetes Screenin g [facility] Start: 07-31-2027 Diabetes Screening Diabetes Screenin g [facility] Start: 04-27-2027 Diabetes Screening Diabetes Screenin g [facility] Start: 09-21-2026 Diabetes Screening Diabetes Screenin g [facility] Start: 08-08-2026 DTaP/Tdap/Td vaccine (2 - Td or Tdap) DTaP/Tdap/Td vaccine (2 - Td or Tdap) [facility] Start: 08-08-2026 DTaP/Tdap/Td vaccine (2 - Td) DTaP/Tdap/Td vaccine (2 - Td) [place] Start: 08-08-2026 DTaP/Tdap/Td Vaccine s (2 - Td or Tdap) DTaP/Tdap/Td Vaccines (2 - Td or Tdap) [facility] Start: 08-08-2026 Urine microalbumin profile [facility] Start: 08-06-2026 Diabetes Screening Diabetes Screenin g [facility] Start: 02-18-2026 Diabetes Screening Diabetes Screenmn g [facility] Start: 11-08-2025 Diabetes Screening Diabetes Screenin [facility] Start: 10-20-2025 Screening for malign ant neoplasm of cervix Pap Smear [facility] Start: 09-15-2025 DIABETES SCREEN DIABETES SCREEN [facility] Start: 09-15-2025 Diabetes Screening Diabetes Screenin g [facility] Start: 07-30-2025 Annual PCP Team Perioperative Educator kyrie Disease Visit Annual PCP Team Chronic Disease Visit [facility] Start: 06-06-2025 Annual PCP Team Perioperative Educator kyrie Disease Visit Annual PCP Team Chronic Disease Visit [facility] Start: 05-02-2025 Annual PCP Team Perioperative Educator kyrie Disease Visit Annual PCP Team Chronic Disease Visit [facility] Start: 12-29-2024 Annual PCP Team Perioperative Educator kyrie Disease Visit Annual PCP Team Chronic Disease Visit [facility] Start: 11-26-2024 End: 11-26-2024 Patient encounter procedure 11/26/2024 1:30 PM EDT Office Visit [facility] Pulmonary and Sleep [facility] [address] [place] [address] Elyssa Tesfaye NP [address] [place] [address] [facility] Pulmonary [facility] Sleep Medicine [facility] Start: 11-20-2024 End: 11-20-2024 Patient encounter procedure 11/20/2024 3:[address] [facility] CT [address] [place] [phone] Elyssa Tesfaye NP [address] [place] [address] [facility] CT Start: 11-20-2024 End: 08-20-2025 CT Chest WO contrast CT chest wo IV contrast Imaging Routine Chronic obstructive pulmonary disease with acute lower respiratory infection (HCC) Expected: 11/20/2024, Expires: 08/20/2025 [facility] Work Phone: Comment on above: Expected: 11/20/2024 , Expires: 08/20/2025 Start: 2024 Influenza vaccination Influenz a Vaccine (Season Ended) [facility] Start: 10-24-2024 End: 10-24-2024 Patient encounter procedure 10/24/2024 10:[address] [facility] PFT [address] [place] [phone] Elyssa Tesfaye NP [address] [place] [address] [facility] PFT Start: 10-18-2024 End: 10-18-2024 ambulatory 10/18/2024 3:30 PM EDT Infusion [facility] [address] [place] [phone] Ziyad Menendez MD [address] [place] [address] [facility] Start: 10-15-2024 Screening for malign ant neoplasm of lung Lung Cancer Screening [facility] Start: 10-11-2024 HPV TESTING HPV TESTING [facility] Start: 10-11-2024 PAP TESTING PAP TESTING [facility] Start: 09-24-2024 End: 09-24-2024 Patient encounter procedure 09/24/2024 10:00 AM EDT Office Visit [facility] Gynecologic Oncology - [place] [address] [place] [phone] Radha Orellana APRN - [place] [address] [place] [address] [facility] Gynecologic Oncology - [place] Start: 09-17-2024 Screening for malign ant neoplasm of cervix [facility] Start: 09-07-2024 Annual PCP Team Perioperative Educator kyrie Disease Visit Annual PCP Team Chronic Disease Visit [facility] Start: 09-04-2024 End: 09-04-2024 ambulatory 09/04/2024 2:30 PM EDT Infusion [facility] [address] [place] [phone] [facility] Start: 08-20-2024 End: 08-20-2025 Complete PFT pre and post bronchodilator with FENO Complete PFT pre and post bronchodilator with FENO PFT Routine Chronic obstructive pulmonary disease with acute lower respiratory infection (HCC) Centrilobular emphysema (HCC) Expected: 08/20/2024 (Approximate), Expires: 08/20/2025 [facility] Comment on above: Expected: 08/20/2024 (Approximate), Expires: 08/20/2025 Start: 08-20-2024 End: 08-20-2024 Patient encounter procedure 08/20/2024 10:30 AM EDT Office Visit [facility] Pulmonary and Sleep Medicine [facility] [address] [place] [address] Elyssa Tesfaye NP [address] [place] [address] [facility] Pulmonary and Sleep Medicine [facility] Start: 07-30-2024 End: 07-30-2024 Patient encounter procedure 07/30/2024 3:00 PM EDT Office Visit Family Medicine [place] [address] [address] Herminia Case MD [address] [place] [address] back pain [facility] [place] Comment on above: back pain Start: 06-30-2024 End: 09-29-2024 CBC W Auto Differential panel - Blood COMPLETE BLOOD COUNT AND DIFFERENTIAL Lab Routine Hyperlipidemia, mixed Expected: 06/30/2024 (Approximate), Expires: 09/29/2024 [facility] Comment on above: Expected: 06/30/2024 (Approximate), Expires: 09/29/2024 Start: 06-30-2024 End: 09-29-2024 Hemoglobin A1c in Blood HEMOGLOBIN A1C Lab Routine Hyperglycemia Expected: 06/30/2024 (Approximate), Expires: 09/29/[address] [facility] Work Phone: Comment on above: Expected: 06/30/2024 (Approximate), Expires: 09/29/2024 Start: 06-30-2024 End: 09-29-2024 Hepatic function 2000 panel - Serum or Plasma HEPATIC FUNCTION PNL Lab Routine Hyperlipidemia, mixed Expected: 06/30/2024 (Approximate), Expires: 09/29/2024 [facility] Comment on above: Expected: 06/30/2024 (Approximate), Expires: 09/29/2024 Start: 06-30-2024 End: 09-29-2024 Lipid 1996 panel - Serum or Plasma LIPID PANEL BASIC Lab Routine Hyperlipidemia, mixed Expected: 06/30/2024 (Approximate), Expires: 09/29/2024 [facility] Comment on above: Expected: 06/30/2024 (Approximate), Expires: 09/29/2024 Start: 06-09-2024 Annual PCP Team Perioperative Educator kyrie Disease Visit Annual PCP Team Chronic Disease Visit [facility] Start: 06-06-2024 End: 06-06-2024 ambulatory 06/06/2024 10:20 AM EDT [place] [address] [address] Herminia Case MD [address] [place] [address] discuss assisted living/longterm [facility] [place] Comment on above: discuss assisted raul ing/longterm Start: 05-19-2024 Annual PCP Team Perioperative Educator kyrie Disease Visit Annual PCP Team Chronic Disease Visit [facility] Start: 05-02-2024 Annual PCP Team Perioperative Educator kyrie Disease Visit Annual PCP Team Chronic Disease Visit [facility] Start: 03-22-2024 Depression Monitoring Depression Mon [facility] Start: 03-21-2024 Advance Directive Discussion Advance Directive Discussion [facility] Start: 03-21-2024 Medicare Advantage Annual Wellness Visit Medicare Advantage Annual Wellness Visit [facility] Start: 03-11-2024 Annual PCP Team Perioperative Educator kyrie Disease Visit Annual PCP Team Chronic Disease Visit [facility] Start: 01-15-2024 Annual PCP Team Perioperative Educator kyrie Disease Visit Annual PCP Team Chronic Disease Visit [facility] Start: 12-08-2023 LIPID SCREEN LIPID SCREEN [facility] Start: 11-20-2023 Covid-19 Vaccine ( season) Covid-19 Vaccine ( season) [facility] Start: 11-20-2023 Covid-19 Vaccine ( season) Covid-19 Vaccine ( season) [facility] Start: 11-20-2023 Influenza vaccination C [facility] Start: 09-18-2023 Influenza vaccination Influenza Vacc ine (#1) [facility] Comment on above: Postponed from 11/19 (Declined at this time) Start: 09-16-2023 ANNUAL PCP TEAM PARENT PARTNER KYRIE DISEASE VISIT ANNUAL PCP TEAM CHRONIC DISEASE VISIT [facility] Start: 09-16-2023 Zoledronic acid therapy ALPHA- 1 ANTITRYPSIN DEFICIENCY SCREENING [facility] Comment on above: Postponed from 11/19 (Declined at this time) Start: 09-13-2023 DIABETES SCREEN DIABETES SCREEN [facility] Start: 09-08-2023 End: 09-08-2023 Patient encounter procedure 09/08/2023 3:20 PM EDT Office Visit [facility] [place] [address] [address] Barbi Goldberg MD [address] [place], [place] [phone] [facility] [place] Comment on above: shaziarae Start: 08-24-2023 End: 08-24-2023 Follow-up encounter 08/24/2023 3:[address] [facility] [address] [address] Melva Juárez, PA-C [address] [place] [address] Follow up visit Family [facility] [place] Comment on above: Follow up visit Start: 08-16-2023 End: 08-16-2023 Patient encounter procedure 08/16/2023 10:00 AM EDT Office Visit [facility] [address] [address] Herminia Case MD [address] [place], [place] [phone] sick [facility] Comment on above: sick Start: 08-03-2023 End: 08-03-2023 Follow-up encounter 08/03/2023 11:[address] [facility] [address] [address] Herminia Case MD [address] [place] [address] [facility] Comment on above: Follow up Start: 07-22-2023 End: 07-22-2023 Follow-up encounter 07/22/2023 1:00 PM EDT [facility] [place] [address] [address] Herminia Case MD [address] [place], [place] [id number] 6 week follow up-anxiety and depression [facility] [place] Comment on above: 6 week follow up-anx iety and depression Start: 07-05-2023 End: 10-04-2023 Lipid 1996 panel - Serum or Plasma LIPID PANEL BASIC Lab Routine Medication management Expected: 07/05/2023, Expires: 10/04/[address] [facility] Work Phone: Comment on above: Expected: 07/05/2023 , Expires: 10/04/2023 Start: 06-04-2023 ANNUAL PCP TEAM PARENT PARTNER KYRIE DISEASE VISIT ANNUAL PCP TEAM CHRONIC DISEASE VISIT [facility] Start: 06-04-2023 COVID-19 VACCINE (#1) COVID-19 VACCI NE (#1) [facility] Comment on above: Postponed from 05/19 (Declined at this time) Start: 06-04-2023 SHINGRIX VACCINE (2 of 2) SHINGRIX VACCINE (2 of 2) [facility] Comment on above: Postponed from 12/05 (Declined at this time) Start: 05-02-2023 End: 08-01-2023 PAIN PANEL, UR QUANT [facility] Work Phone: Comment on above: Expected: 05/02/2023 , Expires: 08/01/2023 Start: 04-22-2023 End: 04-22-2023 Patient encounter procedure [facility] Gynecologic Oncology Start: 03-21-2023 Advance Directive Discussion Advance Directive Discussion [facility] Start: 03-21-2023 Medicare Advantage Annual Wellness Visit Medicare Advantage Annual Wellness Visit [facility] Start: 03-09-2023 End: 03-09-2023 Patient encounter procedure 03/09/2023 11:15 AM EST Office Visit [facility] [address] [place] [address] Freddy Person MD [address] [address] [facility] Start: 03-05-2023 ANNUAL PCP TEAM PARENT PARTNER KYRIE DISEASE VISIT ANNUAL PCP TEAM CHRONIC DISEASE VISIT [facility] Start: 09-02-2023 ANNUAL PCP TEAM PARENT PARTNER KYRIE DISEASE VISIT ANNUAL PCP TEAM CHRONIC DISEASE VISIT [facility] Start: 2022 Covid-19 Vaccine ( season) Covid-19 Vaccine () [facility] Start: 2022 Influenza vaccination C [facility] Start: 11-17-2022 End: 11-17-2022 Patient encounter procedure 11/17/2022 9:00 AM EDT Office Visit [facility] [address] [place] [address] Nabeel Tran MD [address] [place] [address] [facility] Start: 11-10-2022 End: 11-10-2022 Patient encounter procedure 11/10/2022 3:30 PM EDT Appointment [facility] CT Imaging [address] [place] [phone] Kisha Pepe APRN - AN/SSN 2 4 OPERATOR [address] [facility] [place] [address] [facility] Imaging Start: 10-27-2022 End: 10-27-2022 Patient encounter procedure 10/27/2022 10:40 AM EDT Office Visit [facility] [address] [place] [address] Nabeel Tran MD [address] [place] [address] [facility] Start: 10-24-2022 Screening for malign ant neoplasm of cervix Cervical cancer screen [facility] Start: 10-20-2022 End: 10-21-2023 CT Chest WO contrast CT chest wo IV contrast Imaging Routine Malignant neoplasm of exocervix (HCC) Expected: 10/20/2022, Expires: 10/21/2023 [facility] Work Phone: Comment on above: Expected: 10/20/2022 , Expires: 10/21/2023 Start: 10-20-2022 End: 12-21-2023 DBT Breast - bilateral screening Bilateral screening mammogram with tomosynthesis Imaging Routine Encounter for screening mammogram for malignant neoplasm of breast Expected: 10/20/2022, Expires: 12/21/2023 [facility] Comment on above: Expected: 10/20/2022 , Expires: 12/21/2023 Start: 10-20-2022 End: 10-20-2022 Patient encounter procedure 10/20/2022 Office Visit Gynecologic Oncology Kisha Pepe APRN - [facility] [address] [facility] [place] [address] [facility] [place] PIPE INSPECTOR Oncology Start: 10-14-2022 Influenza vaccination LUNG CANCER SC REENING [facility] Start: 10-14-2022 Screening for malign ant neoplasm of lung Lung Cancer Screening [facility] Start: 09-17-2022 Influenza vaccination INFLUENZA (#1) [facility] Comment on above: Postponed from 11/19 (Declined at this time) Start: 08-17-2022 End: 10-17-2022 Lipid 1996 panel - Serum or Plasma LIPID PANEL BASIC Lab Routine Medication management Expected: 08/17/2022, Expires: 10/17/[address] [facility] Work Phone: Comment on above: Expected: 08/17/2022 , Expires: 10/17/2022 Start: 08-06-2022 ANNUAL PCP TEAM PARENT PARTNER KYRIE DISEASE VISIT ANNUAL PCP TEAM CHRONIC DISEASE VISIT [facility] Start: 05-06-2022 ANNUAL PCP TEAM PARENT PARTNER KYRIE DISEASE VISIT ANNUAL PCP TEAM CHRONIC DISEASE VISIT [facility] Start: 03-21-2022 ADVANCE DIRECTIVE DISCUSSION ADVANCE DIRECTIVE DISCUSSION [facility] Start: 03-17-2022 End: 03-17-2022 Patient encounter procedure 03/17/2022 Office Visit Gynecologic Oncology Ziyad Menendez MD [address] [facility] [place], [place] [id number] [facility] [place] PIPE INSPECTOR Oncology Start: 03-11-2022 Pneumococcal 0-64 ye ars Vaccine (2 of 2 - PPSV23) Pneumococcal 0-64 years Vaccine (2 of 2 - PPSV23) [facility] Work Phone: Start: 03-11-2022 Pneumococcal 0-64 ye ars Vaccine (2 of 4 - PPSV23) Pneumococcal 0-64 years Vaccine (2 of 4 - PPSV23) [facility] Work Phone: Start: 02-16-2022 End: 04-18-2022 CBC panel - Blood by Automated count CBC Lab Routine Medication management Expected: 02/16/2022, Expires: 04/18/[address] [facility] Work Phone: Comment on above: Expected: 02/16/2022 , Expires: 04/18/2022 Start: 02-16-2022 End: 04-18-2022 SCHEDULE LAB TESTING SCHEDULE LAB TESTING Lab Routine Expected: 02/16/2022, Expires: 04/18/[address] [facility] Work Phone: Comment on above: Expected: 02/16/2022 , Expires: 04/18/2022 Start: 12-26-2021 Influenza vaccination LUNG CANCER SC REENING [facility] Start: 12-09-2021 End: 12-09-2021 Patient encounter procedure 12/09/2021 Appointment Infusion Therapy [facility] Start: 2021 ADVANCE DIRECTIVE DISCUSSION ADVANCE DIRECTIVE DISCUSSION [facility] Start: 2021 BONE DENSITY BONE DENSITY [facility] Start: 2021 Bone Density Screening Bone Density Screening [facility] Start: 2021 Influenza vaccination C [facility] Start: 2021 Screening for osteoporosis Bone Density Screening [facility] Start: 10-27-2021 End: 12-27-2021 CBC panel - Blood by Automated count CBC Lab Routine Medication management Expected: 10/27/2021, Expires: 12/27/[address] [facility] Work Phone: Comment on above: Expected: 10/27/2021 , Expires: 12/27/2021 Start: 10-27-2021 End: 12-27-2021 SCHEDULE LAB TESTING SCHEDULE LAB TESTING Lab Routine Expected: 10/27/2021, Expires: 12/27/[address] [facility] Work Phone: Comment on above: Expected: 10/27/2021 , Expires: 12/27/2021 Start: 09-24-2021 Screening for malign ant neoplasm of lung Low dose CT lung screening [facility] Work Phone: Start: 09-15-2021 COLORECTAL CANCER SCREENING COLORECTAL CANCER SCREENING [facility] Comment on above: Postponed from 11/19 (Declined at this time) Start: 09-15-2021 COVID-19 VACCINE (#1) COVID-19 VACCI NE (#1) [facility] Comment on above: Postponed from 11/19 (Declined at this time) Start: 09-15-2021 COVID-19 VACCINE (1) COVID-19 VACCIN E (1) [facility] Comment on above: Postponed from 11/19 (Declined at this time) Start: 09-15-2021 SHINGRIX VACCINE (2 of 2) SHINGRIX VACCINE (2 of 2) [facility] Comment on above: Postponed from 12/05 (Declined at this time) Start: 08-06-2021 End: 10-06-2021 CBC W Auto Differential panel - Blood CBC + DIFF Lab Routine Panlobular emphysema (HCC) Chronic respiratory failure with hypoxia (HCC) Expected: 08/06/2021, Expires: 10/06/[address] [facility] Work Phone: Comment on above: Expected: 08/06/2021 , Expires: 10/06/2021 Start: 08-06-2021 End: 10-06-2021 Comprehensive metabolic 2000 panel - Serum or Plasma COMP METABOLIC PANEL Lab Routine Panlobular emphysema (HCC) Chronic respiratory failure with hypoxia (HCC) Expected: 08/06/2021, Expires: 10/06/[address] [facility] Work Phone: Comment on above: Expected: 08/06/2021 , Expires: 10/06/2021 Start: 08-06-2021 End: 10-06-2021 LIPID PANEL BASIC LIPID PANEL BASIC Lab Routine Screening for lipid disorders Expected: 08/06/2021, Expires: 10/06/[address] [facility] Work Phone: Comment on above: Expected: 08/06/2021 , Expires: 10/06/2021 Start: 08-06-2021 End: 10-06-2021 PAIN PANEL, UR QUANT PAIN PANEL, UR QUANT Lab Routine Medication monitoring encounter Expected: 08/06/2021, Expires: 10/06/[address] [facility] Work Phone: Comment on above: Expected: 08/06/2021 , Expires: 10/06/2021 Start: 08-06-2021 End: 10-06-2021 VITAMIN D 25 HYDROXY VITAMIN D 25 HYDROXY Lab Routine Vitamin D deficiency Expected: 08/06/2021, Expires: 10/06/[address] [facility] Work Phone: Comment on above: Expected: 08/06/2021 , Expires: 10/06/2021 Start: 06-06-2021 Screening for malign ant neoplasm of lung Low dose CT lung screening [facility] Work Phone: Start: 02-06-2021 End: 02-06-2021 Patient encounter procedure 02/06/2021 Appointment Infusion Therapy [facility] Start: 11-23-2020 Statin Therapy Statin Therapy [place] Start: 11-21-2020 Lipid panel [facility] Start: 2020 Influenza vaccination Flu vaccine (# 1) [facility] Work Phone: Start: 10-13-2020 End: 10-13-2020 Office Visit [facility] [place] PIPE INSPECTOR Oncology Start: 08-08-2020 End: 08-08-2020 Appointment 08/08/2020 Appointment Infusion Therapy [facility] Start: 07-01-2020 End: 07-01-2020 Telemedicine 07/01/2020 Telemedicine Cardiology Nell Padilla MD [address] [place] [address] [id number] [facility] Start: 06-13-2020 End: 06-13-2020 Appointment 06/13/2020 Appointment Infusion Therapy [facility] Start: 06-09-2020 End: 06-09-2020 Office Visit 06/09/2020 Office Visit Gynecologic Oncology Ziyad Menendez MD [address] [place], [address] [place] [address] [phone] [facility] [place] PIPE INSPECTOR Oncology Start: 04-15-2020 Lipid panel Lipid screen [facility] Start: 03-28-2020 End: 03-28-2020 Virtual Visit 03/28/2020 Virtual Visit Palliative Care David Pollack, DO [address] [id number] [facility] Start: 03-17-2020 End: 03-17-2020 Office Visit [facility] PIPE INSPECTOR Oncology Comment on above: 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) Start: 03-10-2020 End: 03-10-2020 Appointment 03/10/[address] [facility] [address] Scan Start: 02-22-2020 End: 02-22-2020 Appointment [facility] Start: 02-21-2020 End: 02-21-2020 Office Visit [facility] [place] PIPE INSPECTOR Oncology Start: 02-08-2020 End: 02-08-2020 Appointment [facility] Start: 02-07-2020 End: 02-07-2020 Appointment 02/07/2020 Appointment Infusion Therapy [facility] Start: 02-01-2020 End: 02-01-2020 Appointment [facility] Start: 01-31-2020 End: 01-31-[address] [facility] Start: 01-25-2020 End: 01-25-2020 Appointment [facility] Start: 01-24-2020 End: 01-24-2020 Appointment 01/24/2020 Appointment Infusion Therapy [facility] Start: 01-18-2020 End: 01-18-2020 Appointment 01/18/2020 Appointment Infusion Therapy [facility] Start: 01-17-2020 End: 01-17-2020 Appointment [facility] Start: 12-13-2019 End: 12-13-2019 Office Visit 12/13/2019 Office Visit Gynecologic Oncology Ziyad Menendez MD [address] [place], [address] [place] [address] [phone] [facility] PIPE INSPECTOR Oncology Start: 12-07-2019 End: 12-07-2019 Office Visit 12/07/2019 Office Visit Gynecologic Oncology Ziyad Menendez MD [address], [address] [place] [address] [phone] [facility] PIPE INSPECTOR Oncology Start: 12-06-2019 Shingles Vaccine (2 of 2) Shingles Vaccine (2 of 2) [facility] Start: 12-06-2019 SHINGRIX VACCINE (2 of 2) SHINGRIX VACCINE (2 of 2) [facility] Start: 12-06-2019 Zoster Vaccines (2 of 2) Zoster Vacc otto (2 of 2) [facility] Start: 11-22-2019 End: 11-22-2019 Office Visit 11/22/2019 Office Visit Gynecologic Oncology Ziyad Menendez MD [address] [place], [address] [place], [place] [id number] [facility] PIPE INSPECTOR Oncology Start: 11-20-2019 Influenza vaccination Flu vaccine (# 1) [place], [place] Start: 11-09-2019 End: 11-08-2020 US Lower Extremity Venous Right US Lower Extremity Venous Right Imaging Routine Leg swelling Expected: 11/09/2019, Expires: 11/08/2020 [place] Comment on above: Expected: 11/09/2019 , Expires: 11/08/2020 Start: 11-06-2019 End: 11-06-2019 Appointment [facility] Start: 10-30-2019 End: 10-30-2019 Appointment 10/30/2019 Appointment Pre-Admission Testing Ziyad Menendez MD [address], [address] [place] [address] [phone] [facility] Pre-Admit Testing Start: 10-25-2019 Annual Wellness Visi t (AWV) Annual Wellness Visit (AWV) [place] Start: 10-25-2019 End: 10-25-2019 Office Visit 10/25/2019 Office Visit Gynecologic Oncology Ziyad Menendez MD [address] [place] [address] [phone] [facility] [place] PIPE INSPECTOR Oncology Start: 10-18-2019 Screening for malign ant neoplasm of lung Low dose CT lung screening [place], [place] Start: 08-27-2019 Screening for malign ant neoplasm of breast Breast cancer screen [facility] Start: 12-10-2018 Screening for osteoporosis Bone Density Scan [facility] Start: 08-26-2018 Screening for malign ant neoplasm of breast [facility] Start: 03-11-2018 PNEUMOCOCCAL (2 - PCV) PNEUMOCOCCAL (2 - PCV) [facility] Start: 03-11-2018 Pneumococcal 0-64 ye ars Vaccine (2 - PCV) Pneumococcal 0-64 years Vaccine (2 - PCV) [facility] Start: 03-11-2018 Pneumococcal Vaccine : 50+ Years (2 of 2 - PCV) Pneumococcal Vaccine: 50+ Years (2 of 2 - PCV) [facility] Start: 03-11-2018 Pneumococcal Vaccine : 65+ (2 - PCV) Pneumococcal Vaccine: 65+ (2 - PCV) [facility] Start: 03-11-2018 Pneumococcal Vaccine : 65+ Years (2 - PCV) Pneumococcal Vaccine: 65+ Years (2 - PCV) [facility] Start: 03-11-2018 Pneumococcal Vaccine : 65+ Years (2 of 2 - PCV) Pneumococcal Vaccine: 65+ Years (2 of 2 - PCV) [facility] Start: 03-11-2018 PNEUMOCOCCAL: 65+ (2 - PCV) PNEUMOCOCCAL: 65+ (2 - PCV) [facility] Start: 2016 RSV Immunization age d 60 or older (1 - 1-dose 60+ series) RSV Immunization aged 60 or older (1 - 1-dose 60+ series) [facility] Start: 2016 RSV Immunization for Adults (1 - Risk 60-74 years 1-dose series) RSV Immunization for Adults (1 - Risk 60-74 years 1-dose series) [facility] Start: 2016 RSV Vaccine (1 - 1-d ose 60+ series) RSV Vaccine (1 - 1-dose 60+ series) [facility] Start: 2016 RSV Vaccine (1 - Ris k 60-74 years 1-dose series) RSV Vaccine (1 - Risk 60-74 years 1-dose series) [facility] Start: 04-15-2016 Lipid panel Lipid screen [place], [place] Start: 2006 Screening for malign ant neoplasm of colon Colon cancer screen colonoscopy [place], [place] Start: 2006 Screening for malign ant neoplasm of lung Low dose CT lung screening [facility] Start: 2006 Shingles Vaccine (1 of 2) Shingles Vaccine (1 of 2) [place] Start: 2001 COLOGUARD (FIT-DNA) COLOGUARD (FIT-D NA) [facility] Start: 2001 Colonoscopy COLONOSCOPY [facility] Start: 2001 COLORECTAL CANCER SCREENING COLORECTAL CANCER SCREENING [facility] Start: [address] COLONOGRAPHY [facility] Start: 2001 FECAL OCCULT BLOOD FECAL OCCULT BLOO D [facility] Start: 2001 Screening for malign ant neoplasm of colon [facility] Start: 2001 SIGMOIDOSCOPY SIGMOIDOSCOPY [facility] Start: 1996 Mammography [facility] Start: 1996 Screening for malign ant neoplasm of breast [facility] Start: 1986 Screening for malign ant neoplasm of cervix [facility] Start: 1986 Zoledronic acid therapy ALPHA- 1 ANTITRYPSIN DEFICIENCY SCREENING [facility] Start: 1977 Screening for malign ant neoplasm of cervix [place], [place] Start: 1974 Hepatitis C screening Hepatitis C [facility] Start: 1972 COVID-19 Vaccine (1) COVID-19 Vaccin e (1) [facility] Work Phone: Start: 1968 COVID-19 Vaccine (1) COVID-19 Vaccin e (1) [facility] Work Phone: Start: 1968 Depression Monitoring Depression Mon itoring [facility] Start: 1968 Depresssion Monitoring Depresssion M onitoring [facility] Start: 1961 COVID-19 Vaccine (#1) COVID-19 Vacci ne (#1) [facility] Start: 05-19-1957 COVID-19 VACCINE (#1) COVID-19 VACCI NE (#1) [facility] Start: 1956 Annual wellness visit Medicare Initial Physical (IPPE) [facility] Start: 1956 Annual Wellness Visi t (AWV) Annual Wellness Visit (AWV) [facility] Start: 1956 Hepatitis B Vaccines (1 of 3 - 3-dose series) Hepatitis B Vaccines (1 of 3 - 3-dose series) [facility] Start: 1956 Medicare Advantage Annual Wellness Visit (AWV) Medicare Advantage Annual Wellness Visit (AWV) [facility] Start: 1956 Screening for malign ant neoplasm of colon [facility] Start: 1956 Screening for osteoporosis Bone Density Scan [facility] Bacteria identified in Blood by Culture [facility] Work Phone: Basic metabolic 2000 panel Basic Metabolic Panel Lab Routine Daily until discontinued starting 08/04/2019, 1 completed [employer] [facility] Comment on above: Daily until disconti nued starting 08/04/2019, 1 completed Basic Metabolic Pane l w/ Reflex to MG Basic Metabolic Panel w/ Reflex to MG Lab Routine Daily until discontinued starting 11/23/2019, 2 completed [employer] [facility] Comment on above: Daily until disconti nued starting 11/23/2019, 2 completed [facility] Comment on above: Daily until disconti nued starting 08/04/2019, 1 completed Daily until disconti nued starting 11/23/2019, 2 completed End: 02-01-2020 CBC Auto Differential CBC Auto Differential Lab Routine Malignant neoplasm of exocervix (HCC) 1 Occurrences starting 02/01/2020 until 02/01/2020 [employer] [facility] Comment on above: 1 Occurrences starti ng 02/01/2020 until 02/01/2020 COLOGUARD COLOGUARD Lab Ro utine Screening for colon cancer Ordered: 09/15/[address] [facility] Work Phone: Comment on above: Ordered: 09/15/2022 End: 02-01-2020 Comprehensive metabolic 2000 panel Comprehensive Metabolic Panel Lab Routine Malignant neoplasm of exocervix (HCC) 1 Occurrences starting 02/01/2020 until 02/01/2020 [employer] [facility] Comment on above: 1 Occurrences starti ng 02/01/2020 until 02/01/2020 End: 03-16-2020 COVID-19 COVID-19 Lab STAT One Time for 1 Occurrences starting 03/16/2020 until 03/16/2020 [place] Comment on above: One Time for 1 Occur rences starting 03/16/2020 until 03/16/2020 COVID-19 COVID-19 Lab STA T 03/16/2020 1:18 PM [place] End: 06-09-2020 Creatinine [Mass/Vol] Creatinine, Serum Lab Routine Malignant neoplasm of exocervix (HCC) 1 Occurrences starting 06/09/2020 until 06/09/2020 [facility] Work Phone: Comment on above: 1 Occurrences starti ng 06/09/2020 until 06/09/2020 End: 03-10-2020 CT CHEST ABDOMEN PELVIS W CONTRAST CT CHEST ABDOMEN PELVIS W CONTRAST Imaging Routine Malignant neoplasm of exocervix (HCC) Lung nodule seen on imaging study 1 Occurrences starting 03/10/2020 until 03/10/2020 [place] Comment on above: 1 Occurrences starti ng 03/10/2020 until 03/10/2020 CT CHEST ABDOMEN PEL VIS W CONTRAST CT CHEST ABDOMEN PELVIS W CONTRAST Imaging Routine Malignant neoplasm of exocervix (HCC) Lung nodule seen on imaging study 03/10/2020 1:23 PM [place] End: 06-06-2020 CT Chest W Contrast CT Chest W Contrast Imaging Routine Abnormal CT of the chest 1 Occurrences starting 06/06/2020 until 06/06/2020 [facility] Work Phone: Comment on above: 1 Occurrences starti ng 06/06/2020 until 06/06/2020 CT Chest W Contrast [facility] Work Phone: End: 12-26-2020 CT CHEST W CONTRAST CT CHEST W CONTRAST Imaging Routine Once for 1 Occurrences starting 12/26/2020 until 12/26/2020 [facility] Work Phone: Comment on above: Once for 1 Occurrenc es starting 12/26/2020 until 12/26/2020 End: 10-14-2021 CT Chest W Contrast [facility] Work Phone: Comment on above: 1 Occurrences starti ng 10/14/2021 until 10/14/2021 Once for 1 Occurrenc es starting 10/14/2021 until 10/14/2021 Culture, Blood 1 [place], [place] End: 03-16-2020 Culture, Blood 1 Culture, Blood 1 Microbiology STAT One Time for 1 Occurrences starting 03/16/2020 until 03/16/2020 [place] Comment on above: One Time for 1 Occur rences starting 03/16/2020 until 03/16/2020 Culture, Blood 2 [place] End: 03-16-2020 Culture, Blood 2 Culture, Blood 2 Microbiology STAT One Time for 1 Occurrences starting 03/16/2020 until 03/16/2020 [place] Comment on above: One Time for 1 Occur rences starting 03/16/2020 until 03/16/2020 Culture, Respiratory Culture, Re spiratory Microbiology Routine 08/02/2019 11:55 PM EDT [place] Cytology Cervical or vaginal smear or scraping study Pap Smear Pathology and Cytology Routine Malignant neoplasm of exocervix (HCC) 10/20/2022 2:32 PM EDT [facility] End: 06-21-2025 DBT Breast - bilateral screening PAOLO SCREENING W [facility] Radiology Routine Encounter for screening mammogram for breast cancer 1 Occurrences starting 05/22/2024 until 06/21/[address] [facility] Work Phone: Comment on above: 1 Occurrences starti ng 05/22/2024 until 06/21/2025 ECG 12 lead ECG 12 lead CV E CG STAT 05/21/2022 5:47 AM [facility] Work Phone: ECG 12 lead ECG 12 lead CV E CG STAT 04/27/2024 11:57 PM [facility] Work Phone: EKG 12 Lead - Chest Pain [place], [place] End: 08-04-2019 Home O2 eval (desaturation screen) Home O2 eval (desaturation screen) Respiratory Care Routine One Time for 1 Occurrences starting 08/04/2019 until 08/04/2019 [place] Comment on above: One Time for 1 Occur rences starting 08/04/2019 until 08/04/2019 HPV High Risk PCR HPV High Risk PCR Microbiology Routine Malignant neoplasm of exocervix (HCC) 10/20/2022 2:32 PM EDT [facility] End: 02-01-2020 Magnesium [Mass/Vol] Magnesium Lab Routine Malignant neoplasm of exocervix (HCC) 1 Occurrences starting 02/01/2020 until 02/01/2020 [facility] Occurrences starti ng 02/01/2020 until 02/01/2020 End: 08-13-2023 PAOOL SCREENING PAOLO SCREENING Radiology Routine Encounter for screening mammogram for breast cancer 1 Occurrences starting 07/14/2022 until 08/13/[address] [facility] Work Phone: Comment on above: 1 Occurrences starti ng 07/14/2022 until 08/13/2023 End: 09-05-2022 PAOLO SCREENING W CARON PAOLO SCREENING [facility] Radiology Routine Encounter for screening mammogram for malignant neoplasm of breast 1 Occurrences starting 08/06/2021 until 09/05/[address] [facility] Work Phone: Comment on above: 1 Occurrences starti ng 08/06/2021 until 09/05/2022 MDI Treatment MDI Treatment Respiratory Care Routine Every 6hr As Needed until discontinued starting 08/02/2019 [facility] on above: Every 6hr As Needed until discontinued starting 08/02/2019 End: 07-21-2024 MG Breast Screening PAOLO SCREENING Radiology Routine Encounter for screening mammogram for breast cancer 1 Occurrences starting 06/22/2023 until 07/21/[address] [facility] Work Phone: Comment on above: 1 Occurrences starti ng 06/22/2023 until 07/21/2024 Nebulizer therapy HHN Treatment Respiratory Care Routine 0600, 1000, 1400, 1800, 2200 until discontinued starting 03/16/2020, 6 completed [facility] Comment on above: 0600, 1000, 1400, 18 00, 2200 until discontinued starting 03/16/2020, 6 completed Oxygen therapy [[facility]] [facility] Comment on above: Daily until disconti nued starting 11/21/2019, 2 completed Daily until disconti nued starting 11/21/2019 PAIN PANEL, UR QUANT PAIN PANEL, UR QUANT Lab Routine Medication monitoring encounter 05/02/2023 3:12 PM [facility] Work Phone: End: 08-02-2019 Respiratory Virus PCR Panel Respiratory Virus PCR Panel Microbiology Add-On One Time for 1 Occurrences starting 08/02/2019 until 08/02/2019 [facility] [place] Comment on above: One Time for 1 Occur rences starting 08/02/2019 until 08/02/2019 SPECIMEN VALIDITY, URINE SPECIME N VALIDITY, URINE Lab Routine Medication monitoring encounter 05/02/2023 3:12 PM [facility] Work Phone: End: 06-09-2020 Urea nitrogen [Mass/Vol] BUN Lab Routine Malignant neoplasm of exocervix (HCC) 1 Occurrences starting 06/09/2020 until 06/09/2020 [facility] Work Phone: Comment on above: 1 Occurrences starti ng 06/09/2020 until 06/09/2020 End: 10-27-2019 Urinalysis Urinalysis Lab STAT One Time for 1 Occurrences starting 10/27/2019 until 10/27/2019 [facility] [place] Comment on above: One Time for 1 Occur rences starting 10/27/2019 until 10/27/2019 End: 11-10-2019 US Lower Extremity Venous Right US Lower Extremity Venous Right Imaging Routine Leg swelling 1 Occurrences starting 11/10/2019 until 11/10/2019 [facility] [place] Comment on above: 1 Occurrences starti ng 11/10/2019 until 11/10/2019 US Lower Extremity Venous Right US Lower Extremity Venous Right Imaging Routine Leg swelling 11/10/2019 6:00 PM EDT [facility] Immunizations Immunization Date Immunization Notes Care Provider Stephen de santiago 01-14-2023 pneumococcal Conjuga te, unspecified formulation Herminia Case MD Work Phone: [facility] Work Phone: 01-14-2023 pneumococcal (PCV20) vaccine, 20 valent (PREVNAR 20) Herminia Case MD Work Phone: [facility] 10-11-2019 zoster vaccine recombinant Melva Ladonna PA-C Work Phone: [facility] 12-07-2018 influenza, injectabl e, quadrivalent, contains preservative Melva [place] PA-C Work Phone: [facility] 12-07-2018 influenza virus vaccine, unspecified formulation Kisha Afshin LAMINATING PRESS OPERATOR - AN/SSN 2 4 OPERATOR Work Phone: [facility] 01-10-2018 influenza nasal, unspecified formulation Herminia Case MD Work Phone: [facility] 01-10-2018 influenza virus vaccine, unspecified formulation Joanie Alex [facility] 01-10-2018 influenza, seasonal, injectable Melva [place] PA-C Work Phone: [facility] 03-11-2017 pneumococcal polysaccharide vaccine, 23 valent Melva [place] PA-C Work Phone: [facility] Work Phone: 02-15-2017 influenza, injectabl e, quadrivalent, preservative free Melva [place] PA-C Work Phone: [facility] 08-08-2016 tetanus toxoid, redu manjula diphtheria toxoid, and acellular pertussis vaccine, adsorbed Joanie Alex [facility] Work Phone: 02-10-2013 influenza, seasonal, injectable, preservative free Melva [place] PA-C Work Phone: [facility] 02-15-2012 influenza, seasonal, injectable, preservative free Melva Ladonna PA-C Work Phone: [facility] NEGATED: Highlighted row has not occurred!05-22-2022 Influenza,seasonal,sout radha Hemisphere,quad,preserv Free Martha Flores MD Work Phone: [facility] Comment on above: Deferred: Patient Re fused Payers Date Payer Category Payer Self-pay 2022 Medicare (Managed Care) [facility] DUAL COMPLETE HMO POS SNP [id number] 2022 Medicare HMO [employer] DUAL COMPLET E [id number] 2022 Unknown [id number] 2021 Medicare HUMANA MEDICARE HUMANA GOLD PLUS [id number] 2021-Present [phone] [place] [address] [id number] 2021 Medicare HUMANA MEDICARE HUMANA GOLD PLUS O [id number] 2021-Present [phone] [address] [place] [id number] 2019 Medicaid [id number] 2019 Medicaid [id number] 2019 Medicare MEDICARE MEDICAR E PART A AND B [id number] 2019-Present [phone] [address] [address] [place] [address] [id number] 2019 Medicare [id number] 2014 Unknown [facility] HEALTH PL[facility] xxxxxxxxxxxx 2014-Present [phone] [address] [place] [address] xxxxxxxxxxxx [id number] 2014 Unknown [id number] 1956 Unknown [id number] 1956 Unknown [id number] 1956 Unknown [id number] 1956 Unknown [id number] 1956 Unknown [id number] Private Health Insurance Unknown [id number] Social History Date Type Detail Facility Start: 08-02-2019 End: 09-15-2022 Tobacco smoking status NHIS Former smoker [facility] Start: 03-21-1971 End: 03-21-2017 History of tobacco use Current smoker [facility] Start: 03-21-1971 End: 03-21-2017 History of tobacco use Cigarette Smoker [facility] Start: 08-02-2019 End: 09-08-2022 Cigarettes smoked current (pack per day) - Reported [facility] Start: 08-02-2019 End: 10-20-2020 Alcohol intake Current drinker of alcohol (finding) [facility] Start: 10-19-2017 Alcohol Comment very rarely [facility] Start: 1955 Sex Assigned At Not on file [place] Exposure to SARS-CoV -2 (event) Unable to assess [facility] [place] Start: 10-21-2019 End: 09-15-2022 Tobacco use and exposure Never used [facility] Start: 07-27-2021 End: 11-06-2022 Exposure to SARS-CoV-2 (event) Not sure [facility] Start: 11-05-2019 Alcohol Comment 1-2 times/yr [facility] Start: 11-21-2019 Tobacco Comment pt states she quit 4-5 years ago [facility] Start: 11-28-2020 End: 12-30-2023 Alcohol intake Current non-drinker of alcohol (finding) [facility] Start: 05-06-2021 End: 05-21-2022 History SDOH Alcohol Frequency 2 [facility] Start: 05-06-2021 End: 05-21-2022 History SDOH Alcohol Std Drinks 1 [facility] Start: 05-06-2021 History SDOH Social Connections Phone 5 [facility] Start: 05-06-2021 End: 03-05-2022 History SDOH Social Connections Get Together 4 [facility] Start: 05-06-2021 End: 03-05-2022 History SDOH Social Connections Meetings 98 [facility] Start: 05-06-2021 End: 03-05-2022 History SDOH Social Connections Living 3 [facility] Start: 05-06-2021 End: 05-21-2022 History SDOH Physical Activity DPW 0 [facility] Start: 07-11-2018 End: 09-15-2022 Tobacco Comment vaping intermittently [facility] Start: 03-05-2022 End: 09-08-2022 Social connection and isolation panel [facility] Do you belong to any clubs or organizations such as samaritan groups, unions, fraternal or athletic groups, or school groups? No [facility] How often do you att end meetings of the clubs or organizations you belong to? Patient refused [facility] Are you now , , , , never or living with a partner? [facility] How often to you hav e a drink containing alcohol? Never [facility] How hard is it for y ou to pay for the very basics like food, housing, medical care, and heating Not very hard [facility] Do you feel stress - tense, restless, nervous, or anxious, or unable to sleep at night because your mind is troubled all the time - these days [OSQ] To some extent [facility] (I/We) worried jeannie er (my/our) food would run out before (I/we) got money to buy more. Never true [facility] The food that (I/we) bought just didn't last, and (I/we) didn't have money to get more. DK or Refused [facility] Start: 04-26-2021 Gender identity Identifies as female gender (finding) [facility] Start: 04-26-2021 Sexual orientation Heterosexual (finding) [facility] Start: 05-21-2022 End: 08-20-2024 Alcohol intake Ex-drinker (finding) [facility] Start: 05-21-2022 Alcohol Comment Approx once a year [facility] Are you now , , , , never or living with a partner? [facility] Do you feel stress - tense, restless, nervous, or anxious, or unable to sleep at night because your mind is troubled all the time - these days [OSQ] Only a little [facility] Start: 10-19-2021 Sex Female (finding) [facility] History of tobacco use Passive smoker [facility] How often do you nee d to have someone help you when you read instructions, pamphlets, or other written material from your doctor or pharmacy [SILS] Rarely [facility] Medical Equipment Procedure Code Equipment Code Equipment Origin al Text Equipment Identifier Dates Xc[employer] Power Port-12/19/2019 [id number] Start: 12-19-2019 Comment on above: Description: Kylee Barrow ower Port Left Chest Regular Size. Screw Josie 7.3x85mm 16mm-Thrd - [id number] Start: 11-07-2022 Screw Josie 7.3x85mm 16mm-Thrd - [id number] Start: 11-07-2022 Functional Status Date Assessment Result Facility 06-06-2024 Total score [AUDIT-C] 0 06/07/19 9:46 AM EDT User, Na [facility] 06-06-2024 Within the last year , have you been humiliated or emotionally abused in other ways by your partner or ex-partner? No 06/06/2024 9:46 AM EDT User, Charliet No [facility] 06-06-2024 Within the last year , have you been afraid of your partner or ex-partner? No 06/06/2024 9:46 AM EDT User, Heliocatet No [facility] 06-06-2024 Within the last year , have you been raped or forced to have any kind of sexual activity by your partner or ex-partner? No 06/06/2024 9:46 AM EDT User, Heliocatet No [facility] 06-06-2024 Within the last year , have you been kicked, hit, slapped, or otherwise physically hurt by your partner or ex-partner? No 06/06/2024 9:46 AM EDT User, Heliohart No [facility] 06-06-2024 How often to you hav e a drink containing alcohol? Never 06/06/2024 9:46 AM EDT UserCharliet Never [facility] 06-06-2024 Functional status Patient does n ot drink 06/06/2024 9:46 AM EDT User, Charliet Patient does not drink [facility] 06-06-2024 How often do you hav e 6 or more drinks on 1 occasion? Never 06/06/2024 9:46 AM EDT User, Charliet Never [facility] Clinical Notes 09-24-2020 to 09-10-2024 Telephone Encounter - Tate Weathers MA - 09/10/2024 9:01 AM EDTTelephone Encounter - Tate Weathers MA - 09/10/2024 9:01 AM EDTTelephone Encounter - Jeff Donaldson - 09/07/2024 11:19 AM EDT Note Date & Type Note Facility 09-10-2024 Telephone encounter Note Prescription Refill Information The patient has been identified by name and date of : Yes Caregiver verified no other encounters exist for this prescription request: Yes Caregiver confirmed with patient/requestor that no other refills are due, in the near future, with this provider at this time: Yes The last office visit in the department: 07/30/24 Does the patient have a future office visit with this provider/department: No Requested Prescriptions Pending Prescriptions Disp Refills QUEtiapine (SEROQUEL) 100 mg tablet [Pharmacy Med Name: QUETIAPINE FUMARATE 100 MG TAB] 180 tablet 1 Sig: TAKE 2 TABLETS BY MOUTH AT BEDTIME NEEDED Tate Weathers MA September 10, 2024 9:01 AM [facility] 09-10-2024 Miscellaneous Notes Prescription Refill Information The patient has been identified by name and date of : Yes Caregiver verified no other encounters exist for this prescription request: Yes Caregiver confirmed with patient/requestor that no other refills are due, in the near future, with this provider at this time: Yes The last office visit in the department: 07/30/24 Does the patient have a future office visit with this provider/department: No Requested Prescriptions Pending Prescriptions Disp Refills QUEtiapine (SEROQUEL) 100 mg tablet [Pharmacy Med Name: QUETIAPINE FUMARATE 100 MG TAB] 180 tablet 1 Sig: TAKE 2 TABLETS BY MOUTH AT BEDTIME NEEDED Tate Weathers MA September 10, 2024 9:01 AM documented in this encounter [facility] 09-07-2024 Telephone encounter Note Spoke to Nilesh from [facility] and scheduled patient for a follow up on 09/24@10am. Patient has not been seen for quite a while and also is requesting port removal to be scheduled. [facility] 09-07-2024 Miscellaneous Notes Spoke to Nilesh from [facility] and scheduled patient for a follow up on 09/24@10am. Patient has not been seen for quite a while and also is requesting port removal to be scheduled. Nilesh from [facility] pt's port was flushed but there was no blood draw back. Patient requested for the port to be removed due to not being used for roughly 1 year. Please contact Nilesh with further questions at [phone] documented in this encounter [facility] 09-07-2024 Telephone encounter Note Nilesh from [facility] pt's port was flushed but there was no blood draw back. Patient requested for the port to be removed due to not being used for roughly 1 year. Please contact Nilesh with further questions at [phone] [facility] 09-06-2024 History of Presen t illness Narrative Arrival Note Infusion Patient is here for port flush Labs were not ordered. Flushes without difficulty but unable to obtain blood return. Pt states that port has no been flushed in over a year. She is going to inquire with Dr. Menendez about having it removed Ordered treatment completed. Patient discharged without any issues. Patient has a copy of next infusion appointment and verbalizes understanding. All questions answered. documented in this encounter [facility] 09-03-2024 Telephone encounter Note Noted. Melva Juárez PA-C [facility] 09-03-2024 Miscellaneous Notes Noted. Melva Juárez PA-C Patient returned call and LVM. Called and spoke with patient Patient was admitted to hospital and recently discharged to a SN, patient's daughter had submitted request in anticipation of discharge. SNIF is currently managing medications, no longer in need Unsure of anticipated discharge, and if it will be to assisted living or back to home. Will plan to keep office aware. Called patient, no answer at this time. Left voicemail to call the office back. Patient had 30 pills filled on on 08/22. Is she following up with a different provider for prescriptions? Prescription Refill Information The patient has been identified by name and date of : Yes Caregiver verified no other encounters exist for this prescription request: Yes Caregiver confirmed with patient/requestor that no other refills are due, in the near future, with this provider at this time: Yes The last office visit in the department: 07/30/24 Does the patient have a future office visit with this provider/department: No Requested Prescriptions Pending Prescriptions Disp Refills oxyCODONE-acetaminophen (PERCOCET) 5-325 mg tablet 120 tablet 0 Sig: Take 1 tablet by mouth every 6 hours as needed for pain for up to 30 days. Tate Weathers MA August 22, 2024 2:19 PM documented in this encounter [facility] 09-03-2024 Telephone encounter Note Patient returned call and LVM. Called and spoke with patient Patient was admitted to hospital and recently discharged to a [facility], patient's daughter had submitted request in anticipation of discharge. [facility] is currently managing medications, no longer in need Unsure of anticipated discharge, and if it will be to assisted living or back to home. Will plan to keep office aware. [facility] 08-29-2024 Telephone encounter Note Called patient, no answer at this time. Left voicemail to call the office back. [facility] 08-28-2024 Telephone encounter Note Patient had 30 pills filled on on 08/22. Is she following up with a different provider for prescriptions? [facility] 08-22-2024 Telephone encounter Note Prescription Refill Information The patient has been identified by name and date of : Yes Caregiver verified no other encounters exist for this prescription request: Yes Caregiver confirmed with patient/requestor that no other refills are due, in the near future, with this provider at this time: Yes The last office visit in the department: 07/30/24 Does the patient have a future office visit with this provider/department: No Requested Prescriptions Pending Prescriptions Disp Refills oxyCODONE-acetaminophen (PERCOCET) 5-325 mg tablet 120 tablet 0 Sig: Take 1 tablet by mouth every 6 hours as needed for pain for up to 30 days. Tate Weathers MA August 22, 2024 2:19 PM [facility] 08-20-2024 Telephone encounter Note Prescription Refill Information The patient has been identified by name and date of : Yes Caregiver verified no other encounters exist for this prescription request: Yes Caregiver confirmed with patient/requestor that no other refills are due, in the near future, with this provider at this time: Yes The last office visit in the department: 07/30/2024 Does the patient have a future office visit with this provider/department: No Requested Prescriptions Pending Prescriptions Disp Refills oxyCODONE-acetaminophen (PERCOCET) 5-325 mg tablet 120 tablet 0 Sig: Take 1 tablet by mouth every 6 hours as needed for pain for up to 30 days. Virginia Parks LPN August 20, 2024 11:39 AM [facility] 08-20-2024 Miscellaneous Notes Prescription Refill Information The patient has been identified by name and date of : Yes Caregiver verified no other encounters exist for this prescription request: Yes Caregiver confirmed with patient/requestor that no other refills are due, in the near future, with this provider at this time: Yes The last office visit in the department: 07/30/2024 Does the patient have a future office visit with this provider/department: No Requested Prescriptions Pending Prescriptions Disp Refills oxyCODONE-acetaminophen (PERCOCET) 5-325 mg tablet 120 tablet 0 Sig: Take 1 tablet by mouth every 6 hours as needed for pain for up to 30 days. Virginia Parks LPN August 20, 2024 11:39 AM documented in this encounter [facility] 08-20-2024 History of Presen t illness Narrative Images from the original note were not included. [facility] Pulmonary Medicine [address] [place] [address] Date of Service: 08/20/2024 Visit type: An Established patient Chief Complaint/Reason for Referral: Hospital Follow-up (COPD,PSA/MSSA/STREP LRTI/ESTABLISH PULM OUTPATIENT...) SUBJECTIVE History of Present Illness: Gonzalo Deluca ( 1955) is a 68 y.o. female patient, with significant PMH of COPD, emphysema, chronic respiratory failure 3L, pulmonary nodule, sciatica, and tobacco use being seen for pulmonary hospital follow up Admitted [facility] 07/30/2024 - 08/08/2024 pulmonology was consulted for triple bacterial pneumonia, treated for pseudomona, moraxella and Streptoccus, on top of severe pneumonia, with increased oxygen requirements and chronic respiratory failure. Failure to thrive. Chronic resp failure with severe emphysema, 3L baseline O2. Treated with Dulera, Spiriva. Reports significant weight loss of 40 lbs over the past few months. Currently at [facility], [facility]. Presents today with son, states breathing is better than before the hospital. Wearing 3L supplemental continuous oxygen today. SpO2 is 92%, does not appear distressed. Staying at [facility] for [facility] and has been beneficial. Follows with palliative care for dyspnea, taking oxycodone and has been helping. Reports has gained some weight since breathing has improved and being at [facility] facility. Expressed to keep up whatever it is she is doing! BMI is 16.0 today. Continues using Breo ellipta, Spiriva inhalers twice daily. Albuterol as needed. Checking pulse ox and has ran as low as 79% (without oxygen on) and typically 90-92%. No longer smoking tobacco products, however reports she is still vaping. States its only a couple times a day. Intends to quit. Pneumonia vaccine: Seasonal Flu vaccine: COVID-19 vaccine: MMRC Dyspnea Scale: Grade Description of Breathlessness 0 I only get breathless with strenuous exercise. 1 I get short of breath when hurrying on level ground or walking up a slight hill. 2 On level ground, I walk slower than people of the same age because of breathlessness, or have to stop for breath when walking at my own pace. 3 I stop for breath after walking about 100 yards or after a few minutes on level ground. 4 I am too breathless to leave the house or I am breathless when dressing. OBJECTIVE MEDICAL HISTORY: Medical History[1] SURGICAL HISTORY: Surgical History[2] ALLERGIES: Allergies[3] MEDICATIONS: Current Medications[4] SOCIAL HISTORY: Social History Tobacco Use Smoking status: Former Current packs/day: 0.00 Average packs/day: 1.5 packs/day for 39.5 years (59.3 ttl pk-yrs) Types: Cigarettes Start date: 1972 Quit date: 09/20/2011 Years since quittin.9 Passive exposure: Past Smokeless tobacco: Never Tobacco comments: Quit smoking: pt states she quit 4-5 years ago Substance Use Topics Alcohol use: Not Currently Comment: Approx once a year FAMILY HISTORY: Family History[5] REVIEW OF SYSTEMS: Review of Systems Constitutional: Negative for chills, fatigue and fever. HENT: Positive for congestion. Negative for postnasal drip and rhinorrhea. Respiratory: Negative for chest tightness and wheezing (occasional wheezing, mostly in evenings). Cough: thick yellow sputum mostly in mornings. Shortness of breath: with activity. Cardiovascular: Negative for palpitations and leg swelling. VITAL SIGNS: BP 105/67 Pulse 92 Temp 36 C (96.8 F) (Temporal) Ht 5' 4" (1.626 m) Wt 93 lb 3.2 oz (42.3 kg) SpO2 91% Comment: 4Lp BMI 16.00 kg/m PHYSICAL EXAM: Physical Exam Constitutional: General: She is awake. She is not in acute distress (malnurished). Appearance: She is cachectic. HENT: Head: Normocephalic. Eyes: General: Right eye: No discharge. Left eye: No discharge. Cardiovascular: Rate and Rhythm: Normal rate and regular rhythm. Heart sounds: No murmur heard. Pulmonary: Effort: No respiratory distress. Breath sounds: Decreased breath sounds present. No wheezing or rhonchi. Musculoskeletal: Right lower leg: No edema. Left lower leg: No edema. Skin: General: Skin is warm and dry. Neurological: Mental Status: She is alert and oriented to person, place, and time. Psychiatric: Behavior: Behavior normal. Behavior is cooperative. DATA REVIEWED: PFT's-- CXR-- 08/08/2024 COMPARISON: 07/30/2024 and 07/31/2024. FINDINGS: Cardiomediastinal silhouette: Stable size of the cardiac silhouette. Stable central venous port. Lungs: Severe COPD changes with extensive pulmonary scarring and stable density projecting over the left infrahilar region. No acute focal pulmonary consolidation. No definite pleural effusion or pneumothorax. Bones: Generalized osteopenia. Multilevel compression deformities of the thoracic spine with kyphosis of the spine similar to prior CT imaging. IMPRESSION: No significant change compared to the prior exam. CT Chest 07/31/2024 COMPARISON: 10/16/2023 TECHNIQUE: Contiguous axial images were obtained through the chest abdomen and pelvis from the level of the thoracic inlet through the pubic symphysis following administration of intravenous contrast. Dose reduction was employed with automated exposure control. FINDINGS: Cardiovasculature: Heart size is normal. Left upper extremity PICC line with tip in the SVC. Normal caliber thoracic aorta. No central pulmonary emboli. Mediastinum/Pericardium: Small amount of pericardial fluid, similar to the prior. Lymph Nodes: No thoracic lymphadenopathy is evident Pleura: Unremarkable Central Airways: No airway nodules. Lungs: Severe diffuse emphysematous changes bilaterally. There is a new peripheral wedge-shaped airspace opacity posteriorly in the left lower lobe. A few tiny centrilobular nodules are also noted in both lower lobes. No other sites of airspace consolidation. Hepatobiliary: No suspicious hepatic lesions. The gallbladder is contracted. Pancreas: Unremarkable Spleen: Unremarkable Adrenal Glands: Unremarkable Kidneys, ureters, and bladder: No calculi or hydroureteronephrosis. Abdominal and pelvic vasculature: Unremarkable GI tract: No evidence of obstruction. The appendix is not visualized. Peritoneum and retroperitoneum: No free fluid or free air is noted. Lymph Nodes: No abdominal or pelvic lymphadenopathy is evident. Pelvis: Unremarkable Visualized musculoskeletal structures: Remote ORIF of the left hip. Chronic osteoporotic compression fractures of the T6-T9, T11, and L2-L4 vertebral bodies. No destructive bone lesion or acute fractures. IMPRESSION: 1. New wedge-shaped subpleural airspace opacity in the left lower lobe is most likely either focal pneumonia or a lung infarct. Neoplasm is unlikely, but follow-up to resolution is recommended. 2. No acute findings in the abdomen or pelvis. 3. Multiple chronic osteoporotic compression fractures in the thoracic and lumbar spine. 4. Severe pulmonary emphysema. TTE--09/20/2023 Left Ventricle: Left ventricle size is normal. Mildly increased wall thickness. Normal left ventricular systolic function. EF by 2D Simpsons Biplane is 65%. Global longitudinal strain is normal with a value of -18.1%. Normal wall motion. Right Ventricle: Right ventricle size is normal. Interatrial Septum: No interatrial shunt visualized on color Doppler. Agitated saline study was positive without provocation. Right to left shunt was noted. Hypermobile interatrial septum. No significant valvular abnormalities. ASSESSMENT and PLAN 1. Hospital discharge follow-up (Primary) Improved since discharge, treated for triple bacteria pneumonia, suspecting aspiration. Treated antibiotics. Significant weight loss recently, due to dyspnea. Treatment for dyspnea from palliative care is beneficial. Using inhalers/nebs approx. Completed prednisone taper. Wearing 3L O2 at baseline. group home currently 2. Acute on chronic respiratory failure with hypoxia (HCC) - continue supplemental oxygen, baseline 3L NC. Maintain SpO2 88-92% 3. Centrilobular emphysema (HCC) - CT chest does show severe emphysema -PFT from 2016, FEV1/FVC reduced, FEV1 1.45, 50% predicted. No bronchodilator response. Severe obstructive ventilatory defect with evidence of gas trapping, no evidence of hyperinflation or bronchodilator response. - obtaining new PFT will be beneficial to determine severity of disease. Last PFT from 2016 - complete PFT pre and post bronchodilator with FENO; Future - continue Breo ellipta, Spiriva inhalers twice daily. Albuterol nebulizer/inhler as needed for symptom relief 4. Aspiration pneumonia of left lower lobe, unspecified aspiration pneumonia type (HCC) - CT chest with new wedge shaped opacity in the LLL concerning for pneumonia vs lung infarct. Pneumonia PCR panel + for Pseudomonas, Moraxella and Strep agalactiae. Final respiratory culture + for Pseudomonas aeruginosa. - repeat CT chest 6-8 weeks; future 5. Chronic obstructive pulmonary disease with acute lower respiratory infection (HCC) - CT chest wo IV contrast; Future to ensure resolution of pneumonia - Complete PFT pre and post bronchodilator with FENO; Future - guaiFENesin (Mucinex) 600 MG 12 hr tablet; Take 2 tablets (1,200 mg) by mouth 2 times daily as needed for cough or congestion for up to 28 doses. Do not crush, chew, or split. Dispense: 56 tablet; Refill: 0 6. History of tobacco abuse - continues to remains tobacco free, is vaping a couple times a day - advised vaping can only exacerbate their condition and potentially lead to further complications. - declines NRT at this time 7. Severe malnutrition (CMS/HCC) ([facility]) - pulmonary cachexia; palliative following and treating dyspnea with benefits - trying to gain weight since breathing has improved - eating what wood chopper has recommended while at [facility] facility FOLLOW UP: Follow up in about 3 months (around 11/20/2024), or if symptoms worsen or fail to improve. Portions of the information within this encounter were entered using an electronic dictation system. Best attempts were made to proofread the information prior to note completion. Despite the review of the information, some errors may remain. If there are questions related to the information contained within the note please contact the signing provider directly. Electronically signed by: Elyssa Tesfaye NP Pulmonary & Sleep Medicine [1] Past Medical History: Diagnosis Date Abnormal stress test Acute exacerbation of chronic obstructive pulmonary disease ([facility]) 04/12/2018 Allergic rhinitis Arthritis Asthma Bronchitis Cancer (CMS/HCC) ([facility]) skin Cervical cancer ([facility]) Chest pain COPD (chronic obstructive pulmonary disease) ([facility]) USE OXYGEN 3 L AT NIGHT DDD (degenerative disc disease), cervical Defect, retina, with detachment right DJD (degenerative joint disease), lumbar Emphysema lung ([facility]) Former smoker Hematuria SCHEDULED FOR THE PROCEDURE /SURGERY ON 02/11/2017 Hypokalemia Lung nodules Near syncope 09/19/2023 Osteoporosis Palpitations Pneumonia Recurrent major depression ([facility]) Sciatica Thoracic compression fracture ([facility]) Vitamin D deficiency [2] Past Surgical History: Procedure Laterality Date CYSTOSCOPY 01/12/2017 OFFICE PROCEDURE CYSTOSCOPY 02/11/2017 C&P bladder biopsy EYE SURGERY detached retina 1994 HYSTERECTOMY 11/06/2019 ABDOMINAL RADICAL HYSTERECTOMY WITH BSO AND PELVIC LYMPH; DR. ZIYAD FISH OTHER SURGICAL HISTORY Left 12/19/2019 Med Port POWER Regular Size OTHER SURGICAL HISTORY Left 11/07/2022 Percutaneous skeltal fixation femoral fracture TUBAL LIGATION 1992 [3] Allergies Allergen Reactions Pollen Extract Unknown [4] Current Outpatient Medications: albuterol (2.5 MG/3ML) 0.083% nebulizer solution, Take 3 mL (2.5 mg) by nebulization 2 times daily., Disp: , Rfl: albuterol 108 (90 Base) MCG/ACT inhaler, Inhale 2 puffs every 4 hours as needed., Disp: , Rfl: aspirin 81 MG EC tablet, Take 81 mg by mouth., Disp: , Rfl: buPROPion XL (Wellbutrin XL) 150 MG 24 hr tablet, Take 150 mg by mouth in the morning., Disp: , Rfl: busPIRone (Buspar) 15 MG tablet, Take 1 tablet (15 mg) by mouth 2 times daily., Disp: 60 tablet, Rfl: 0 calcium carbonate-cholecalciferol (Oyster Shell) 250-3.125 MG-MCG tablet, Take 1 tablet by mouth., Disp: , Rfl: Diclofenac Sodium (Voltaren) 1 % gel, Apply 4 g topically 2 times daily., Disp: , Rfl: fluticasone (Flonase) 50 MCG/ACT nasal spray, 2 sprays in the morning., Disp: , Rfl: Fluticasone Furoate-Vilanterol (Breo Ellipta) 200-25 MCG/ACT aerosol powder , Inhale 1 puff daily., Disp: , Rfl: Fluticasone-Salmeterol 250-50 MCG/ACT aerosol powder , Inhale 250 mcg daily. 30 DAY SUPPLY, Disp: , Rfl: folic acid (Folvite) 1 MG tablet, Take 1 tablet (1 mg) by mouth daily., Disp: , Rfl: magnesium oxide (Mag-Ox) 400 mg tablet, 400 mg daily., Disp: , Rfl: melatonin 3 MG tablet, Take 1 tablet (3 mg) by mouth Nightly., Disp: , Rfl: mirtazapine (Remeron) 15 MG tablet, Take 1 tablet (15 mg) by mouth Nightly., Disp: 30 tablet, Rfl: 0 montelukast (Singulair) 10 MG tablet, Take 10 mg by mouth Nightly., Disp: , Rfl: morphine (MSIR) 15 MG tablet, Take 1 tablet (15 mg) by mouth every 6 hours as needed for severe pain (7-10) (shortness of breath) for up to 5 days., Disp: 20 tablet, Rfl: 0 PARoxetine (Paxil) 30 MG tablet, Take 1 tablet (30 mg) by mouth every morning., Disp: 30 tablet, Rfl: 11 QUEtiapine (SEROquel) 50 MG tablet, Take 1 tablet (50 mg) by mouth Nightly as needed (Anxiety and Sleep)., Disp: , Rfl: tiotropium (Spiriva Respimat) 2.5 MCG/ACT inhaler, Inhale 2 puffs in the morning., Disp: , Rfl: Zinc 50 MG capsule, Take 50 mg by mouth., Disp: , Rfl: guaiFENesin (Mucinex) 600 MG 12 hr tablet, Take 2 tablets (1,200 mg) by mouth 2 times daily as needed for cough or congestion for up to 28 doses. Do not crush, chew, or split., Disp: 56 tablet, Rfl: 0 [5] Family History Problem Relation Name Age of Onset Colon cancer Neg Hx Ovarian cancer Neg Hx Cancer Mother breast- to liver Cancer Sister breast Cancer Father lung to brain No Known Problems Brother Uterine cancer Neg Hx documented in this encounter [facility] 08-20-2024 Instructions Rosalee Marvin - 08/20/2024 10:30 AM EDT YOUR APPOINTMENT TODAY WAS WITH THE [facility] LUNG NODULE [facility], COPD CLINIC, PULMONARY AND SLEEP MEDICINE OFFICE. PLEASE CALL OUR OFFICE AT [phone] for our [place] office location or [phone] for our [place] location, IF YOU HAVE NOT RECEIVED YOUR TEST RESULTS 7 DAYS AFTER TESTING IS COMPLETED. PLEASE REMEMBER TO REQUEST REFILLS AT YOUR OFFICE VISITS. PHONE/FAX REQUESTS REQUIRE 48-72 HOURS FOR RESPONSE. A FRIENDLY REMINDER COPAYS ARE DUE AT TIME OF SERVICE. THANK YOU. Our Patients Are Important! We want to improve and you can help. After your visit we want you to feel: Listened to, Respected and have your health care explained. You may receive a survey asking you about your visit. Please complete the survey. We will use your feedback to make improvements. COVID-19 VACCINATION INFORMATION: PH. [phone] HEALTH.[facility]G/CORONAVIRUS/VACCINE [facility] Central Scheduling [phone] [facility] Sleep Scheduling [phone] documented in this encounter [facility] 08-14-2024 Telephone encounter Note Prescription Refill Information The patient has been identified by name and date of : Yes Caregiver verified no other encounters exist for this prescription request: Yes Caregiver confirmed with patient/requestor that no other refills are due, in the near future, with this provider at this time: Yes The last office visit in the department: 07/30/24 Does the patient have a future office visit with this provider/department: No Requested Prescriptions Pending Prescriptions Disp Refills busPIRone (BUSPAR) 15 mg tablet [Pharmacy Med Name: BUSPIRONE HCL 15 MG TABLET] 270 tablet 1 Sig: TAKE 1 TABLET BY MOUTH THREE TIMES A DAY Tate Weathers MA August 14, 2024 10:39 AM [facility] 08-14-2024 Miscellaneous Notes Prescription Refill Information The patient has been identified by name and date of : Yes Caregiver verified no other encounters exist for this prescription request: Yes Caregiver confirmed with patient/requestor that no other refills are due, in the near future, with this provider at this time: Yes The last office visit in the department: 07/30/24 Does the patient have a future office visit with this provider/department: No Requested Prescriptions Pending Prescriptions Disp Refills busPIRone (BUSPAR) 15 mg tablet [Pharmacy Med Name: BUSPIRONE HCL 15 MG TABLET] 270 tablet 1 Sig: TAKE 1 TABLET BY MOUTH THREE TIMES A DAY Tate Weathers MA August 14, 2024 10:39 AM documented in this encounter [facility] 08-08-2024 Nurse Note Called report to R[facility] [place]. Pickup scheduled for 3:30pm. [facility] 08-08-2024 Nurse Note Called report to [facility]. Pickup scheduled for 3:30pm. Wound Care consulted for Pressure Injury Prevention. Pt's Jeri score= 17 on 08/08 Pt's pressure points assessed. Pt stood independently for posterior assessment. Pt's Heels, Buttocks/coccyx, Back, Right elbow, Occiput and ears all intact. Cast in place to left upper extremity. [place] and healed area noted to coccyx. [place] and blanchable tissues noted to bilateral heels. Instructed pt on pressure injury prevention and importance of turning/postioning every 2hrs while in bed and every 15 min while sitting in chair. Verbalized understanding. Prevention Measures in place, including: Pillows/wedges, Heels elevated off bed on pillows, Zinc/Moisture Barrier ointment (obtained and applied), Waffle chair cushion (obtain for pt once getting out of bed to chair). Skin Care precaution order set ordered. Dietitian consult in place. PT/OT consult in place. D/W nursing staff. Will continue to follow pt. Please secure chat for any questions or concerns. Rosalina Cross RN documented in this encounter [facility] 08-08-2024 History of Presen t illness Narrative Pt has been seen by palliative care during this hospital admission. Provider suggested referral to outside pall care provider at [facility]. Referral sent to [facility], faxed to documented in this encounter [facility] 08-08-2024 Nurse Note Wound Care consulted for Pressure Injury Prevention. Pt's Jeri score= 17 on 08/08 Pt's pressure points assessed. Pt stood independently for posterior assessment. Pt's Heels, Buttocks/coccyx, Back, Right elbow, Occiput and ears all intact. Cast in place to left upper extremity. [place] and healed area noted to coccyx. [place] and blanchable tissues noted to bilateral heels. Instructed pt on pressure injury prevention and importance of turning/postioning every 2hrs while in bed and every 15 min while sitting in chair. Verbalized understanding. Prevention Measures in place, including: Pillows/wedges, Heels elevated off bed on pillows, Zinc/Moisture Barrier ointment (obtained and applied), Waffle chair cushion (obtain for pt once getting out of bed to chair). Skin Care precaution order set ordered. Dietitian consult in place. PT/OT consult in place. D/W nursing staff. Will continue to follow pt. Please secure chat for any questions or concerns. Rosalina Cross RN [facility] 08-08-2024 Note Formatting of this n ote might be different from the original. Rounds this am DCP: [facility] Called to notify Karishma/dtr: [facility] has overturned the Denial and is approved to go to [facility] Transport arranged for 330pm. Tasked to [employer] to complete 7,000 Send AVS and Mar to facility Facility is updated CHARLEY and notified [facility] 08-08-2024 Note Formatting of this n ote might be different from the original. Rounds this am DCP: [facility] Called to notify Karishma/dtr: [facility] has overturned the Denial and is approved to go to [facility] Transport arranged for 330pm. Tasked to [employer] to complete 7,000 Send AVS and Mar to facility Facility is updated CHARLEY and notified [facility] 08-08-2024 Miscellaneous Notes Rounds this am DCP: [facility] Called to notify Karishma/dtr: [facility] has overturned the Denial and is approved to go to [facility] Transport arranged for 330pm. Tasked to [employer] to complete 7,000 Send AVS and Mar to facility Facility is updated RN and MD notified Patient Choice Patient Name: GONZALO DELUCA Date of : 1955 All Providers Sent Referral Name: [facility] Member Phone: [phone] Address: [address] [place] [address] Name: [facility] Phone: [phone] Address: [address] [place] [address] Name: [facility] Phone: [phone] Address: [address] [place] [address] Name: [facility] Phone: [phone] Address: [address] [place] [address] MAR, Discharge med list transmitted and 7000 in HENs to [facility] via [facility] per TCC request. Problem: Knowledge Deficit Goal: Patient/family/caregiver demonstrates understanding of disease process, treatment plan, medications, and discharge instructions 08/08/2024 0447 by Sadie Rodriguez RN Outcome: Not Progressing 08/08/2024 0316 by Sadie Rodriguez RN Outcome: Progressing Problem: Potential for Compromised Skin Integrity Goal: Skin Integrity is Maintained or Improved 08/08/2024 0447 by Sadie Rodriguez RN Outcome: Not Progressing 08/08/2024 031 by Sadie Rodriguez RN Outcome: Not Progressing Problem: Urinary Incontinence Goal: Perineal skin integrity is maintained or improved 08/08/2024 0447 by Sadie Rodriguez RN Outcome: Not Progressing 08/08/2024 031 by Sadie Rodriguez RN Outcome: Not Progressing Problem: Potential for Falls Goal: I will remain free of falls 08/08/2024 044 by Sadie Rodriguez RN Outcome: Not Progressing 08/08/2024315 by Sadie Rodriguez RN Outcome: Progressing Problem: Discharge Barriers Goal: My discharge needs are met 08/08/2024 044 by Sadie Rodriguez RN Outcome: Not Progressing 08/08/2024315 by Sadie Rodriguez RN Outcome: Not Progressing Problem: Problem Interventions Goal: Assess Nutritional Intake 08/08/2024446 by Sadie Rodriguez RN Outcome: Progressing 08/08/2024315 by Sadie Rodriguez RN Outcome: Not Progressing Goal: Dietary Supplements 08/08/2024 0447 by Sadie Rodriguez RN Outcome: Progressing 08/08/2024 0316 by Sadie Rodriguez RN Outcome: Not Progressing Goal: Promote nutritional intake 08/08/2024 0447 by Sadie Rodriguez RN Outcome: Progressing 08/08/2024 031 by Sadie Rodriguez RN Outcome: Not Progressing Problem: Potential for Compromised Skin Integrity Goal: Skin Integrity is Maintained or Improved Outcome: Not Progressing Problem: Urinary Incontinence Goal: Perineal skin integrity is maintained or improved Outcome: Not Progressing Problem: Discharge Barriers Goal: My discharge needs are met Outcome: Not Progressing Problem: Problem Interventions Goal: Assess Nutritional Intake Outcome: Not Progressing Goal: Dietary Supplements Outcome: Not Progressing Goal: Promote nutritional intake Outcome: Not Progressing Care Management Progress Note -Pt started the appeals process yesterday for denied SNF stay. We now have 72 hours for a response from her insurance. -Notified Dr. Beverly -Updated clinicals faxed to [phone] -If the appeal process is upheld, pt will have to go home with [facility]. -custodial services manager to follow and assist as needed. Length of Stay (Days): 6 GMLOS: 5.2 Problem: Knowledge Deficit Goal: Patient/family/caregiver demonstrates understanding of disease process, treatment plan, medications, and discharge instructions Outcome: Progressing Problem: Potential for Compromised Skin Integrity Goal: Skin Integrity is Maintained or Improved Outcome: Progressing Goal: Nutritional status is improving Outcome: Progressing Problem: Urinary Incontinence Goal: Perineal skin integrity is maintained or improved Outcome: Progressing Problem: Potential for Falls Goal: I will remain free of falls Outcome: Progressing Problem: Problem Interventions Goal: Dietary Supplements Outcome: Progressing Spoke with pt earlier in the day to to determine if she wants to appeal the P2P decision denying SNF. Pt asked to go to [place]. She is in the process of trying to get to [facility] through her waiver services. She started this process about a month ago. Tasked SW to check into the AL situation. SW spoke with daughter Karishma who states she wants her mom to appeal the P2P process. She does not think the pt should be going home. It would not be a good environment for her. Spoke with pt again and informed her of daughter's concerns and needing to appeal the P2P decision. Appeals number given to pt to call: [phone]. Appeals fax number: [phone]. Pt was calling as this CM was walking out of her room. custodial services manager to follow and assist as needed. Spoke with patients daughter Karishma, regarding dc plans, who states that they would like to ideally get patient into [facility] and then get patient over to [facility] under Medicaid. This will require an insurance appeal for the [facility]p facility. Shared this discussion with the TCC Problem: Knowledge Deficit Goal: Patient/family/caregiver demonstrates understanding of disease process, treatment plan, medications, and discharge instructions Outcome: Progressing Problem: Potential for Compromised Skin Integrity Goal: Skin Integrity is Maintained or Improved Outcome: Progressing Problem: Potential for Compromised Skin Integrity Goal: Nutritional status is improving Outcome: Progressing Problem: Urinary Incontinence Goal: Perineal skin integrity is maintained or improved Outcome: Progressing Problem: Potential for Falls Goal: I will remain free of falls Outcome: Progressing Problem: Discharge Barriers Goal: My discharge needs are met Outcome: Progressing Problem: Knowledge Deficit Goal: Patient/family/caregiver demonstrates understanding of disease process, treatment plan, medications, and discharge instructions Outcome: Progressing Problem: Potential for Compromised Skin Integrity Goal: Skin Integrity is Maintained or Improved Outcome: Progressing Problem: Potential for Compromised Skin Integrity Goal: Nutritional status is improving Outcome: Progressing Problem: Urinary Incontinence Goal: Perineal skin integrity is maintained or improved Outcome: Progressing Problem: Knowledge Deficit Goal: Patient/family/caregiver demonstrates understanding of disease process, treatment plan, medications, and discharge instructions Outcome: Progressing Problem: Potential for Compromised Skin Integrity Goal: Skin Integrity is Maintained or Improved Outcome: Progressing Problem: Potential for Compromised Skin Integrity Goal: Nutritional status is improving Outcome: Progressing Problem: Urinary Incontinence Goal: Perineal skin integrity is maintained or improved Outcome: Progressing Problem: Potential for Falls Goal: I will remain free of falls Outcome: Progressing Problem: Discharge Barriers Goal: My discharge needs are met Outcome: Progressing Problem: Problem Interventions Goal: Assess Nutritional Intake Outcome: Progressing Problem: Knowledge Deficit Goal: Patient/family/caregiver demonstrates understanding of disease process, treatment plan, medications, and discharge instructions Outcome: Progressing Problem: Potential for Compromised Skin Integrity Goal: Skin Integrity is Maintained or Improved Outcome: Progressing Goal: Nutritional status is improving Outcome: Progressing Problem: Urinary Incontinence Goal: Perineal skin integrity is maintained or improved Outcome: Progressing Problem: Potential for Falls Goal: I will remain free of falls Outcome: Progressing Problem: Problem Interventions Goal: Assess Nutritional Intake Outcome: Progressing Goal: Dietary Supplements Outcome: Progressing Goal: Promote nutritional intake Outcome: Progressing Was updated by attending that peer to peer was denied and patient would need to submit an appeal. The appeal number for [facility] is [phone] and fast appeal fax [phone] is not open on the weekend and this will need to be initiated on Tuesday. Discussed with patient and she wanted to discuss with her daughter prior to deciding to pursue appeal or discharge home with [facility]. She did state that her daughter was interested in getting her into an assistive living and that she has medicaid. Will update weekday TCC to follow.. Problem: Knowledge Deficit Goal: Patient/family/caregiver demonstrates understanding of disease process, treatment plan, medications, and discharge instructions Outcome: Progressing Problem: Potential for Compromised Skin Integrity Goal: Skin Integrity is Maintained or Improved Outcome: Progressing Problem: Potential for Compromised Skin Integrity Goal: Nutritional status is improving Outcome: Progressing Problem: Urinary Incontinence Goal: Perineal skin integrity is maintained or improved Outcome: Progressing Problem: Potential for Falls Goal: I will remain free of falls Outcome: Progressing Problem: Discharge Barriers Goal: My discharge needs are met Outcome: Progressing Called [facility] and spoke with Xiao and insurance is requesting peer to peer to be completed by 08/06 at 12 noon central standard time. Number for peer to peer is [phone] option 5. Will need members name, and ID number. Physicians are available 8-5 over the weekend central standard time. Did update attending with information to complete peer to peer. . Problem: Knowledge Deficit Goal: Patient/family/caregiver demonstrates understanding of disease process, treatment plan, medications, and discharge instructions Outcome: Progressing Problem: Potential for Compromised Skin Integrity Goal: Skin Integrity is Maintained or Improved Outcome: Progressing Goal: Nutritional status is improving Outcome: Progressing Problem: Urinary Incontinence Goal: Perineal skin integrity is maintained or improved Outcome: Progressing Problem: Potential for Falls Goal: I will remain free of falls Outcome: Progressing Problem: Discharge Barriers Goal: My discharge needs are met Outcome: Progressing Problem: Problem Interventions Goal: Assess Nutritional Intake Outcome: Progressing Goal: Dietary Supplements Outcome: Progressing Goal: Promote nutritional intake Outcome: Progressing Tasked weekend case hardener to follow for pending auth to [facility]. 7000 will need to be completed at the time of discharge. custodial services manager to follow and assist as needed. Sent updated notes to [facility] per [facility] request. Await review and response regarding ability to accept. TCC notified. Care Management Progress Note -Discharge plan is [facility] -Tasked [employer] pond supervisor to start auth. -Tasked [employer] to send updated clinical notes to facility. -custodial services manager to follow for auth approval and assist as needed. Length of Stay (Days): 2 GMLOS: 4.1 Problem: Knowledge Deficit Goal: Patient/family/caregiver demonstrates understanding of disease process, treatment plan, medications, and discharge instructions Outcome: Progressing Problem: Potential for Compromised Skin Integrity Goal: Skin Integrity is Maintained or Improved Outcome: Progressing Problem: Potential for Compromised Skin Integrity Goal: Nutritional status is improving Outcome: Progressing Problem: Urinary Incontinence Goal: Perineal skin integrity is maintained or improved Outcome: Progressing Problem: Potential for Falls Goal: I will remain free of falls Outcome: Progressing Problem: Discharge Barriers Goal: My discharge needs are met Outcome: Progressing Problem: Problem Interventions Goal: Assess Nutritional Intake Outcome: Progressing Problem: Knowledge Deficit Goal: Patient/family/caregiver demonstrates understanding of disease process, treatment plan, medications, and discharge instructions Outcome: Progressing Problem: Potential for Compromised Skin Integrity Goal: Skin Integrity is Maintained or Improved Outcome: Progressing Goal: Nutritional status is improving Outcome: Progressing Problem: Urinary Incontinence Goal: Perineal skin integrity is maintained or improved Outcome: Progressing Problem: Potential for Falls Goal: I will remain free of falls Outcome: Progressing Problem: Discharge Barriers Goal: My discharge needs are met Outcome: Progressing Referral placed to SNF- [facility] via [facility] per TCC request. Await review and response regarding ability to accept. TCC notified. Care Management Progress Note -Spoke with pt at bedside for SNF choices. -Pt would like referrals sent to [facility], [facility], and [facility]. -Tasked [employer] to send those referrals. -Will speak with pt again once facility responses are in for facility of choice. -custodial services manager to follow and assist as needed. Length of Stay (Days): 1 GMLOS: No GMLOS Documented -Spoke with pt and she has chosen [facility] as FOC. Informed facility. ADOD is [address] Bishop. Anticipate starting auth tomorrow. custodial services manager to follow and assist as needed. Problem: Knowledge Deficit Goal: Patient/family/caregiver demonstrates understanding of disease process, treatment plan, medications, and discharge instructions Outcome: Progressing Problem: Potential for Compromised Skin Integrity Goal: Skin Integrity is Maintained or Improved Outcome: Progressing Problem: Urinary Incontinence Goal: Perineal skin integrity is maintained or improved Outcome: Progressing Problem: Potential for Falls Goal: I will remain free of falls Outcome: Progressing Problem: Discharge Barriers Goal: My discharge needs are met Outcome: Progressing Problem: Knowledge Deficit Goal: Patient/family/caregiver demonstrates understanding of disease process, treatment plan, medications, and discharge instructions Outcome: Progressing Problem: Potential for Compromised Skin Integrity Goal: Skin Integrity is Maintained or Improved Outcome: Progressing Goal: Nutritional status is improving Outcome: Progressing Problem: Urinary Incontinence Goal: Perineal skin integrity is maintained or improved Outcome: Progressing Problem: Potential for Falls Goal: I will remain free of falls Outcome: Progressing Problem: Discharge Barriers Goal: My discharge needs are met Outcome: Progressing Care Management Progress Note -Met with pt at bedside. Introduced self and role. -PT/OT recommending SNF. Pt is agreeable. -SNF list given to pt for her to look over for SNF choices. -Will follow up tomorrow for SNF choices. She also has contact information for CM in case she decides before then on choices. -custodial services manager to follow and assist as needed. Length of Stay (Days): 1 GMLOS: No GMLOS Documented Problem: Knowledge Deficit Goal: Patient/family/caregiver demonstrates understanding of disease process, treatment plan, medications, and discharge instructions Outcome: Progressing Problem: Potential for Compromised Skin Integrity Goal: Skin Integrity is Maintained or Improved Outcome: Progressing Goal: Nutritional status is improving Outcome: Progressing Problem: Urinary Incontinence Goal: Perineal skin integrity is maintained or improved Outcome: Progressing Problem: Potential for Falls Goal: I will remain free of falls Outcome: Progressing Problem: Discharge Barriers Goal: My discharge needs are met Outcome: Progressing Desk Maker following case for Discharge Needs. Images from the original note were not included. [facility] Palliative Care Transitions of Care Note Gonzalo Deluca : 1955 ADMIT DATE: 07/30/2024 DISCHARGE DATE: TBD PRIMARY CARE PHYSICIAN: HERMINIA CASE MD CODE STATUS: DNR-CCA DISCHARGE DIAGNOSES: Principal Problem: Adult failure to thrive HOSPITAL COURSE: Goals of care Gonzalo Deluca retains capacity for medical decision-making -legal surrogate decision maker is unknown, daughter listed in emergency contacts-->Karishma Deluca ( ) -Would encourage completion of HCPOA while admitted. -goals of care include: 1) improve SOB 2) improve pain Fall L Elbow fracture Debility, FTT -Worsening functional status at home. -She lives with her daughter, mainly stays on 2nd floor in her room where she has microwave and fridge. -She is really not able to go up and down steps well. -PT/OT. -s/p casting with ortho. -Orthopedics following, non-op fracture. -Monitor. Unintentional weight loss Pulmonary cachexia -Patient is severely malnourished appearing. -Noted that reports that she is not hungry and when she does try to eat she is full only after a few bites. -Endorses feeling very short of breath when trying to eat. -Child Development Teacher would be helpful. -BMI 15.28 -Albumin-->3.0 -Monitor. Chronic respiratory failure Dyspnea Severe emphysema -3L baseline. Worsening SOB as of late. -Continue MSIR to 15 mg Q4 hour PRN severe pain/shortness of breath. -Patient is not sure how well this is helping her shortness of breath at this time. -Continue to follow on symptoms. Discussed with her that we could rotate back to percocet/oxycodone if this was more effective. -PFT last done in 2016-->FEV1/FVC reduced, FEV1 1.45, 50% predicted. No bronchodilator response. Severe obstructive ventilatory defect with evidence of gas trapping, no evidence of hyperinflation or bronchodilator response. -Noted that we continue to follow for goals of care. -CT CAP 5-13-->reviewed, severe emphysema. -Pulmonology following. -monitor. Continue to follow. Palliative Care Encounter -Code Status: DNR-CCA, OK for intubation. - will continue to follow for ongoing monitoring of progression of Dyspnea as well as for appropriateness for hospice care due to COPD and Respiratory Failure SIGNIFICANT DIAGNOSTIC STUDIES: Labs, imaging CODE STATUS DISCUSSIONS: DNR-CCA SYMPTOM MANAGEMENT MEDICATIONS: MSIR RECOMMENDED NEXT STEPS: Dc when medically stable FOLLOW UP TESTING, PENDING RESULTS OR REFERRALS AT TRANSITIONAL CARE VISIT: No PENDING STUDIES: No DISPOSITION: Skilled Rehab Facility FACILITY/HOME CARE AGENCY NAME: [facility] Follow up with [facility] on office to call patient. If appointment not scheduled, patient should be scheduled within 1-2 weeks. Reason for Outpatient/Home/ECF Palliative Care follow-up: Symptom management: specifically pain/shortness of breath Opiate Prescribing OARRS was reviewed and is supportive of the care plan. The qualifying diagnosis is terminal condition The patient is Palliative care patient The duration of opiate prescription is longer than 7 days because terminal condition This patient requires opioid dosage greater than 30 oral morphine equivalents due to Terminal Condition and symptoms could not be controlled with non-opioid alternatives alone or with lower doses of opiates. Patient being rotated to a new opiate regimen yes. Education was provided regarding 3 options for disposal of left over medication including drug take back programs, flushing appropriate medications down the toilet or household disposal. SIGNED: DB Aggarwal CNP 08/03/2024, 10:20 AM Rounds this am DCP: TBD Need PT/OT to determine to ED with chief complaint of unintentional weight loss, shortness of breath, and also left elbow pain has been dealing with COPD for quite some time but recently has gotten more short of breath and is not finding energy to perform much of activities of daily living. Has had very poor appetite normal eats only once a day. Son is also concerned she is not taking care of her with neuropathy because she did not have the oxygen tanks is back up and her concentrator is not working. She was noted be significantly hypoxic at PCP office for the scheduled appointment 93% on 5L last read documented in this encounter [facility] 08-08-2024 Note Formatting of this n ote might be different from the original. Patient Choice Patient Name: GONZALO DELUCA Date of : 1955 All Providers Sent Referral Name: Vinicius Briggs - CPAN Member Phone: [phone] Address: [address] [place] [address] Name: [facility] Phone: [phone] Address: [address] [place] [address] Name: [facility] Phone: [phone] Address: [address] [place] [address] Name: [facility] ([facility] Phone: [phone] Address: [address] [place] [address] [facility] 08-08-2024 Note Formatting of this n ote might be different from the original. Patient Choice Patient Name: GONZALO DELUCA Date of : 1955 All Providers Sent Referral Name: Vinicius Alvarez CPAN Member Phone: [phone] Address: [address] [place] [address] Name: [facility] Phone: [phone] Address: [address] [place] [address] Name: [facility] Phone: [phone] Address: [address] [place] [address] Name: [facility] Phone: [phone] Address: [address] [place] [address] [facility] 08-08-2024 Note Formatting of this n ote might be different from the original. MAR, Discharge med list transmitted and 7000 in HENs to [facility] via [facility] per [facility] request. [facility] 08-08-2024 Note Formatting of this n ote might be different from the original. MAR, Discharge med list transmitted and 7000 in HENs to [facility] via [facility] per [facility] request. [facility] 08-08-2024 Note [facility] 08-08-2024 Hospital course Narrative Images from the original note were not included. Hospitalist Discharge Summary Gonzalo Deluca : 1955 Admit date: 07/30/2024 Discharge date: 08/08/2024 Admitting Physician: Dejuan Bishop MD Primary Care Physician: HERMINIA CASE MD Visit Status: Inpatient Code Status: DNR-CCA BRIEF HOSPITAL COURSE: 68-year-old female with a history of COPD who presents to the emergency department with worsening weight loss, failure to thrive, and increased shortness of breath. The patient reports significant weight loss, stating her weight has decreased to 89 pounds, with a total loss of 40 pounds. She describes increased anorexia, expressing no desire to eat or drink and feeling "just not hungry." The patient's shortness of breath, which is chronic due to her COPD, has worsened. She arrived at the emergency department requiring 3 liters of oxygen. Her baseline respiratory status includes chronic respiratory failure, requiring 3 liters of oxygen, and severe emphysema. In April, the patient experienced a fall resulting in left elbow pain, which has persisted since then. A fracture was identified on imaging, described as "several months old." The patient's condition has significantly impacted her overall health and functioning, leading to a failure to thrive diagnosis. Her severe malnourishment and unintentional weight loss have contributed to her debilitated state. The combination of her respiratory issues, chronic pain, and nutritional deficits has led to a decline in her overall health status. Recent healthcare interactions include consultations with [facility], palliative care, pulmonology, orthopedic surgery, geriatrics, and speech-language pathology. These consultations were initiated to address various aspects of her complex medical condition. VS on arrival HR 91, RR 18, BP 114/79, Spow 90 % on 3 liters. EKG showed heart rate of 95, normal sinus rhythm. Labs: Hemoglobin 11.2, MCP 103, glucose 80, albumin 3, folate low at 5.2. No WC in urine. Imaging: Left elbow fracture several months old. CT-CAP showed new red shaped sepulchral spats, opacity in left lower lobe, likely pneumonia or lung infarction. Multiple chronic osteoporotic compression fractures in thoracic and lumbar spine. Pulmonology was consulted for triple bacterial pneumonia in which she was treated, for Pseudomona, Moraxella and Streptocccus, on top of her severe pneumonia, with increased oxygen requirements on top of her chronic respiratory failure. Condition improved - SNF denied placement. P2P denied and appealed which was accepted. Acute, acute on chronic, unstable/uncontrolled chronic problems/discharge diagnoses: Failure to thrive with severe malnourishment Assessment: Patient has experienced significant unintentional weight loss of 40 pounds, with current weight at 89 pounds. She reports increased anorexia and no desire to eat or drink. Lab results show low albumin (3) and low folate (5.2), indicative of malnutrition. This condition is likely exacerbated by her chronic respiratory failure and severe emphysema. Plan: - METAL SMELTER evaluation: recommended regular solids with thin liquids, sitting upright, slow rate of intake, and small bites - Will likely need some extra supplementations - with boost and other nutrition on discharge Chronic respiratory failure with severe emphysema Polymicrobial pneumonia including Pseudomonas Moraxella in the Streptococcus, suspect aspiration Hx of h eavy tobacco abuse Assessment: Patient has a history of COPD with chronic shortness of breath on exertion. She arrived on 3 liters of oxygen, which is her baseline. Last PFT shows FEV1 of 11.4% and 50% predicted. CT chest shows severe pulmonary emphysema and new round-shaped septal spots, opacity in left lower lobe, possibly indicating pneumonia in which she was treated with total course of Cefepime. Plan: - Continue oxygen therapy at 3 liters - Pulmonology consultation - Continue bronchodilator therapy: Dulera and Spiriva with tapering dosing - Incentive spirometry - continue outpatient - Outpatient pulmonary function testing to get new baseline PFTs Chronic pain (left elbow fracture) L-supracondylar humerus fracture related to severe osteoporosis Assessment: Patient reports left elbow pain since a fall in April. Imaging confirms a left elbow fracture several months old. [facility] was [facility]. Plan: - Continue Tylenol 650 mg BID - Morphine 15 mg Q4 hours for pain and shortness of breath - Discontinued Flexeril during admission if she needs to restart a muscle relax use tizanidine instead per geriatrics Anxiety and depression Assessment: Patient is on multiple psychotropic medications for anxiety and depression management. Plan: - Continue: - Wellbutrin 150 mg PO daily - Effexor 150 mg daily - weaned off and discontinued during admission - Buspirone 15 mg BID - Mirtazapine 15 mg at bedtime - Adjust: - Decreased paroxetine from 40 mg to 30 mg daily - Changed Seroquel from 200 mg to 50 mg at bedtime - Discontinue: - Sudafed - Monitor for improvement in appetite with medication adjustments Severe malnutrition with suspected pulmonary cachexia Medical History[1] Procedures:Elbow 102 07/30: Impression: Acute, obliquely oriented, slightly displaced and impacted fracture through the supracondylar region of the left elbow with associated soft tissue swelling. CXR 07/30: Impression: No acute cardiopulmonary abnormality identified. Chronic appearing lung changes. CT abdomen, and pelvis with contrast 07/31: Impression: 1. New wedge-shaped subpleural airspace opacity in the left lower lobe is most likely either focal pneumonia or a lung infarct. Neoplasm is unlikely, but follow-up to resolution is recommended. 2. No acute findings in the abdomen or pelvis. 3. Multiple chronic osteoporotic compression fractures in the thoracic and lumbar spine. 4. Severe pulmonary emphysema. CXR 08/08: FINDINGS: Cardiomediastinal silhouette: Stable size of the cardiac silhouette. Stable central venous port. Lungs: Severe COPD changes with extensive pulmonary scarring and stable density projecting over the left infrahilar region. No acute focal pulmonary consolidation. No definite pleural effusion or pneumothorax. Bones: Generalized osteopenia. Multilevel compression deformities of the thoracic spine with kyphosis of the spine similar to prior CT imaging. Impression: No significant change compared to the prior exam. Hospital Course: See discharge diagnoses list above and medication adjustments below in med rec.The patient is discharged in improved and stable condition. Consults: IP CONSULT TO ORTHOPAEDIC SURGERY IP CONSULT TO PALLIATIVE CARE IP CONSULT TO GERIATRICS IP CONSULT TO DIETITIAN IP CONSULT TO DIETITIAN IP CONSULT TO WOUND PREVENTION Discharge Instructions: Diet: Dietary Orders (From admission, onward) Start Ordered 07/31/24 1031 Supplement:AM Snack, PM Snack; Vanilla Ensure Plus Until discontinued Question Answer Comment Frequency AM Snack Frequency PM Snack Select supplement: Vanilla Ensure Plus 07/31/24 1030 07/31/24 1031 Supplement:HS Snack; [place] Ensure Plus Until discontinued Question Answer Comment Frequency HS Snack Select supplement: [place] Ensure Plus 07/31/24 1030 07/30/24 2313 Adult diet Regular Diet effective now Question: Diet type Answer: Regular 07/30/24 231 Activity: as tolerated Recommended Outpatient Tests: Disposition: Patient discharged in stable condition to Home. Greater than 31 minutes spent discharging the patient and coming up with patient discharge plan. Vitals: BP 99/64 Pulse 87 Temp 36.2 C (97.2 F) Resp 18 Ht 5' 4" (1.626 m) Wt 89 lb 1.1 oz (40.4 kg) SpO2 93% BMI 15.29 kg/m Pulse Ox: SpO2 Av.8 % Min: 90 % Max: 99 % Supplemental O2: O2 Flow Rate (L/min): 3 L/min Physical Exam HENT: Mouth/Throat: Pharynx: Oropharynx is clear. Eyes: Conjunctiva/sclera: Conjunctivae normal. Cardiovascular: Rate and Rhythm: Normal rate. Heart sounds: No murmur heard. Pulmonary: Effort: Pulmonary effort is normal. No respiratory distress. Breath sounds: No wheezing or rales. Comments: Nasal cannula to 3 L oxygen Abdominal: General: Bowel sounds are normal. There is no distension. Tenderness: There is no abdominal tenderness. There is no guarding. Comments: Thin appearance Musculoskeletal: General: Signs of injury present. No tenderness. Comments: left sided cast above elbow Skin: General: Skin is warm. Capillary Refill: Capillary refill takes less than 2 seconds. Findings: Bruising (Bilateral upper and lower extremity) present. Comments: Hip scars bilaterally Neurological: General: No focal deficit present. Mental Status: She is alert and oriented to person, place, and time. Chronically ill apperances, LABS: Recent Labs 08/06/24 0118 08/07/2413708/08/24 0108 NA 141 141 141 K 3.8 3.7 3.9 CL 101 101 101 CO2 33* 33* 32* BUN 27* 28* 22 CREATININE 0.56* 0.59 0.63 GLUCOSE 93 124* 99 CALCIUM 8.9 9.3 8.6* Recent Labs 08/06/24 0119 08/07/2413708/08/24 0108 WBC 7.8 8.7 12.6* RBC 3.47* 3.38* 3.32* HGB 10.7* 10.5* 10.4* HCT 35.3 33.8* 33.7* MCV 101.7* 100.0* 101.5* MCH 30.8 31.1 31.3 MCHC 30.3* 31.1 30.9 RDW 14.0 14.3 14.6 PLT 166 189 192 MPV 9.6 9.9 9.8 Discharge Medications: Medication List START taking these medications folic acid 1 MG tablet Commonly known as: Folvite Take 1 tablet (1 mg) by mouth daily. Start taking on: August 09, 2024 melatonin 3 MG tablet Take 1 tablet (3 mg) by mouth Nightly. morphine 15 MG tablet Commonly known as: MSIR Take 1 tablet (15 mg) by mouth every 6 hours as needed for severe pain (7-10) (shortness of breath) for up to 5 days. CHANGE how you take these medications PARoxetine 30 MG tablet Commonly known as: Paxil Take 1 tablet (30 mg) by mouth every morning. Start taking on: August 09, 2024 What changed: medication strength how much to take QUEtiapine 50 MG tablet Commonly known as: SEROquel Take 1 tablet (50 mg) by mouth Nightly as needed (Anxiety and Sleep). What changed: medication strength how much to take when to take this reasons to take this CONTINUE taking these medications * albuterol 108 (90 Base) MCG/ACT inhaler * albuterol (2.5 MG/3ML) 0.083% nebulizer solution Take 3 mL (2.5 mg) by nebulization 2 times daily. aspirin 81 MG EC tablet Breo Ellipta 200-25 MCG/ACT aerosol powder Generic drug: Fluticasone Furoate-Vilanterol buPROPion XL 150 MG 24 hr tablet Commonly known as: Wellbutrin XL busPIRone 15 MG tablet Commonly known as: Buspar Take 1 tablet (15 mg) by mouth 2 times daily. calcium carbonate-cholecalciferol 250-3.125 MG-MCG tablet Commonly known as: Oyster Shell Diclofenac Sodium 1 % gel Commonly known as: Voltaren Apply 4 g topically 2 times daily. fluticasone 50 MCG/ACT nasal spray Commonly known as: Flonase magnesium oxide 400 MG tablet Commonly known as: Mag-Ox mirtazapine 15 MG tablet Commonly known as: Remeron Take 1 tablet (15 mg) by mouth Nightly. montelukast 10 MG tablet Commonly known as: Singulair Spiriva Respimat 2.5 MCG/ACT inhaler Generic drug: tiotropium Zinc 50 MG capsule * This list has 2 medication(s) that are the same as other medications prescribed for you. Read the directions carefully, and ask your doctor or other care provider to review them with you. STOP taking these medications alendronate 70 MG tablet Commonly known as: Fosamax calcitonin 200 UNIT/ML injection Commonly known as: Miacalcin methocarbamol 500 MG tablet Commonly known as: Robaxin nicotine 21 MG/24HR patch Commonly known as: Nicoderm, Step 1 Where to Get Your Medications These medications were sent to [facility]/pharmacy #[id number] - [place] [address] [facility] [place] [phone] PARoxetine 30 MG tablet You can get these medications from any pharmacy Bring a paper prescription for each of these medications morphine 15 MG tablet Information about where to get these medications is not yet available Ask your nurse or doctor about these medications albuterol (2.5 MG/3ML) 0.083% nebulizer solution folic acid 1 MG tablet QUEtiapine 50 MG tablet Recommended Follow-up: [facility] [place] [address] [facility] [address] Follow up Cognitive Evaluation Betsey Gresham MD [address] [facility] [address] Schedule an appointment as soon as possible for a visit in 3 week(s) Elyssa Tesfaye NP [address] [facility] [address] Go on 08/20/2024 Pulmonary hospital follow up at 10:30 AM Complexity of Follow up: [] Moderate Complexity: follow up within 7-14 calendar days ([address]) [x] Severe Complexity: follow up within 7 calendar days (85[address]) Follow up Testing, Pending results or Referrals at Transitional Care Visit: [x] yes [] no Instructions to MA: Please call patient on day after discharge (must document patient contacted within 2 business days of discharge). Follow up questions for MA: 1. Did you get medications filled and taking them as instructed from discharge? 2. Are you following your discharge instructions from your hospital stay? 3. Please confirm patient is scheduled for a follow up appointment within the above time frame. Signed: Rena Beverly MD Division of Hospitalist Medicine [employer] [facility] [employer] 08/08/2024, 12:48 PM [1] Past Medical History: Diagnosis Date Abnormal stress test Acute exacerbation of chronic obstructive pulmonary disease (HCC) 04/12/2018 Allergic rhinitis Arthritis Asthma Bronchitis Cancer (CMS/HCC) (HCC) skin Cervical cancer (HCC) Chest pain COPD (chronic obstructive pulmonary disease) (HCC) USE OXYGEN 3 L AT NIGHT DDD (degenerative disc disease), cervical Defect, retina, with detachment right DJD (degenerative joint disease), lumbar Emphysema lung (HCC) Former smoker Hematuria SCHEDULED FOR THE PROCEDURE /SURGERY ON 02/11/2017 Hypokalemia Lung nodules Near syncope 09/19/2023 Osteoporosis Palpitations Pneumonia Recurrent major depression (HCC) Sciatica Thoracic compression fracture (HCC) Vitamin D deficiency documented in this encounter [facility] 08-08-2024 History of Presen t illness Narrative Patient chart reviewed and being rounded on. Note to follow. 6:29 AM 08/08/24 Rena Beverly MD Division of Hospitalist Medicine [facility] [employer] Images from the original note were not included. [facility], Pulmonary Medicine [address] [place] [id number] Patient - Gonzalo Deluca, Age - 68 y.o. - 1955 Room Number - [id number] Consulting - Rena Beverly MD Primary Care Physician - [phone] Date of Admission - 07/30/2024 4:40 PM Hospital Day - 6 Chief Complaint : weight loss, shortness of breath, failure to thrive Gonzalo Deluca is a 68 y.o. female who pulmonary is following for severe emphysema PMH: COPD, emphysema, chronic respiratory failure 3 liters, pulmonary nodule, sciatica, and tobacco use. Patient quit smoking cigarettes 6 years ago but she continues to vape. Patient reports significant weight loss of around 40 lbs over the last few months. She is not currently following with a staff genetic counselor. She is on Breo ellipta, Spiriva, and prn Albuterol at home. Interval history Patient resting comfortably in bed. She denied any chest pain, shortness of breath, fever or chills. This morning. Cough and sputum production improved. On 3 liters NC. No new overnight concerns. A pertinent review of systems was performed and was otherwise non-contributory except as detailed in subjective section above. Objective Vitals: BP 122/80 (BP Location: Right arm, Patient Position: Lying) Pulse 77 Temp 36.1 C (97 F) (Temporal) Resp 18 Ht 5' 4" (1.626 m) Wt 89 lb 1.1 oz (40.4 kg) SpO2 91% BMI 15.29 kg/m Pulse Ox: SpO2 Av.2 % Min: 90 % Max: 94 % Supplemental O2: O2 Flow Rate (L/min): 3 L/min I/O 24HR INTAKE/OUTPUT: Intake/Output Summary (Last 24 hours) at 08/07/2024 1036 Last data filed at 08/07/2024 0612 Gross per 24 hour Intake 370 ml Output 350 ml Net 20 ml Exam Physical Exam Vitals and nursing note reviewed. Constitutional: General: She is not in acute distress. Comments: Thin appearance HENT: Head: Normocephalic and atraumatic. Nose: Nose normal. No congestion or rhinorrhea. Eyes: General: No scleral icterus. Right eye: No discharge. Left eye: No discharge. Cardiovascular: Rate and Rhythm: Normal rate and regular rhythm. Pulmonary: Effort: Pulmonary effort is normal. No respiratory distress. Breath sounds: No stridor. No wheezing or rales. Genitourinary: Comments: Left arm cast Neurological: Mental Status: She is alert. Medications Current Medications Scheduled Meds[1] PRN Mediations PRN Meds[2] Labs CBC Results from last 7 days Lab Units 08/07/24 0138 WBC AUTO 10*3/uL 8.7 HEMOGLOBIN g/dL 10.5* HEMATOCRIT % 33.8* PLATELETS 10*3/uL 189 BMP: Results from last 7 days Lab Units 08/07/24 0138 08/06/24 0118 08/05/24 0214 SODIUM mmol/L 141 141 141 POTASSIUM mmol/L 3.7 3.8 4.3 CHLORIDE mmol/L 101 101 100 CO2 mmol/L 33* 33* 36* BUN mg/dL 28* 27* 25* CREATININE mg/dL 0.59 0.56* 0.57 GLUCOSE mg/dL 124* 93 102 CALCIUM mg/dL 9.3 8.9 9.4 ABG: LIVER PROFILE No lab exists for component: LABALBU Cultures Respiratory pathogens PCR: Negative Respiratory culture: many respiratory linus, many pseudomonas aeruginosa Pneumonia PCR panel: + PSA, Moraxella catarrhalis, Strep agalactiae Radiology CXR 07/30/24: IMPRESSION: No acute cardiopulmonary abnormality identified. Chronic appearing lung changes CT chest, abdomen, pelvis with contrast 07/31/24: IMPRESSION: 1. New wedge-shaped subpleural airspace opacity in the left lower lobe is most likely either focal pneumonia or a lung infarct. Neoplasm is unlikely, but follow-up to resolution is recommended. 2. No acute findings in the abdomen or pelvis. 3. Multiple chronic osteoporotic compression fractures in the thoracic and lumbar spine. 4. Severe pulmonary emphysema. Active Hospital Problem List Problem List[3] Assessment LLL opacity suspicious for pneumonia vs lung infarct Polymicrobial LRTI, + PSA, Moraxella and Strep agalactiae COPD Severe emphysema Tobacco use disorder Severe malnutrition, pulmonary cachexia Recommendations CT chest with new wedge shaped opacity in the LLL concerning for pneumonia vs lung infarct. Pneumonia PCR panel + for Pseudomonas, Moraxella and Strep agalactiae. Final respiratory culture + for Pseudomonas aeruginosa. Will complete Cefepime course today Recommend follow up CT chest in 4-6 weeks to ensure resolution of pneumonia On baseline 3 liters NC. Maintain SpO2 88-92% Spiriva, Dulera, Albuterol neb's while inpatient. Resume Spiriva and Breo Ellipta at discharge. Denied need for refills Consider new PFT's outpatient to determine severity of disease. Last PFT from 2016 Prednisone taper as ordered Josué Mcgraw Counseled on smoking cessation. Patient quit smoking cigarettes 6 years ago but continues to vape. Advised patient to quit smoking completely. CM following to assist with discharge planning. Advance Directive: DNR-CCA Discharge planning: Okay to discharge from pulmonary standpoint. Will sign off at this time, please feel free to contact our service for any further questions or changes in clinical status. Hospital follow up scheduled with Elyssa Tesfaye APRN on 08/20/24 Case discussed with nurse and patient Questions and concerns addressed. I have discussed the patient's case and plan of care with my collaborating physician Dr. Aburto [1] acetaminophen, 650 mg, Oral, BID albuterol, 2.5 mg, Nebulization, BID aspirin, 81 mg, Oral, Daily buPROPion XL, 150 mg, Oral, Daily busPIRone, 15 mg, Oral, BID calcitonin, 50 Units, IntraMUSCular, Daily cefepime, 2,000 mg, IntraVENous, q8h cetirizine, 5 mg, Oral, Daily enoxaparin, 30 mg, SubCUTAneous, Daily fluticasone, 2 spray, Each Nostril, Daily folic acid, 1 mg, Oral, Daily melatonin, 3 mg, Oral, Nightly mirtazapine, 15 mg, Oral, Nightly mometasone-formoterol, 2 puff, Inhalation, BID montelukast, 10 mg, Oral, Nightly PARoxetine, 30 mg, Oral, q AM predniSONE, 10 mg, Oral, Daily tiotropium, 2 puff, Inhalation, Daily [2] PRN medications: acetaminophen OR acetaminophen, albuterol, iopamidol, morphine, naloxone, ondansetron ODT OR ondansetron, polyethylene glycol (PEG) 3350, QUEtiapine, sodium chloride [3] Patient Active Problem List Diagnosis Poor venous access Other specified complication of vascular prosthetic devices, implants and grafts, initial encounter ([facility]) Chronic pain COPD (chronic obstructive pulmonary disease) (HCC) DDD (degenerative disc disease), cervical Leukocytosis Malignant neoplasm of exocervix (HCC) Recurrent major depression (HCC) Pulmonary nodule S/P hysterectomy Sciatica Shortness of breath Supplemental oxygen dependent PNA (pneumonia) H/O: CVA (cerebrovascular accident) Former smoker Nondisplaced fracture of neck of left femur (HCC) Lumbar compression fracture, closed, initial encounter ([facility]) Severe malnutrition (CMS/HCC) (HCC) Falls frequently Unintentional weight loss Debility PFO (patent foramen ovale) Adult failure to thrive Anxiety and depression Cognitive deficits At risk for delirium Hospitalist Progress Note 08/07/2024 Subjective: Admit Date: 07/30/2024 PCP: HERMINIA CASE MD Room#: B2-254/B2-254 B BRIEF HOSPITAL COURSE: 68-year-old female with a history of COPD who presents to the emergency department with worsening weight loss, failure to thrive, and increased shortness of breath. The patient reports significant weight loss, stating her weight has decreased to 89 pounds, with a total loss of 40 pounds. She describes increased anorexia, expressing no desire to eat or drink and feeling "just not hungry." The patient's shortness of breath, which is chronic due to her COPD, has worsened. She arrived at the emergency department requiring 3 liters of oxygen. Her baseline respiratory status includes chronic respiratory failure, requiring 3 liters of oxygen, and severe emphysema. In April, the patient experienced a fall resulting in left elbow pain, which has persisted since then. A fracture was identified on imaging, described as "several months old." The patient's condition has significantly impacted her overall health and functioning, leading to a failure to thrive diagnosis. Her severe malnourishment and unintentional weight loss have contributed to her debilitated state. The combination of her respiratory issues, chronic pain, and nutritional deficits has led to a decline in her overall health status. Recent healthcare interactions include consultations with [facility], palliative care, pulmonology, orthopedic surgery, geriatrics, and speech-language pathology. These consultations were initiated to address various aspects of her complex medical condition. VS on arrival HR 91, RR 18, BP 114/79, Spow 90 % on 3 liters. EKG showed heart rate of 95, normal sinus rhythm. Labs: Hemoglobin 11.2, MCP 103, glucose 80, albumin 3, folate low at 5.2. No WC in urine. Imaging: Left elbow fracture several months old. CT-CAP showed new red shaped sepulchral spats, opacity in left lower lobe, likely pneumonia or lung infarction. Multiple chronic osteoporotic compression fractures in thoracic and lumbar spine. Pulmonology was consulted for triple bacterial pneumonia in which she was treated, for Pseudomona, Moraxella and Streptocccus, on top of her severe pneumonia, with increased oxygen requirements on top of her chronic respiratory failure. Condition improved - SNF denied placement. P2P obtained. Interval History: Discussed with patient she starting to feel okay, still requires assistance to get up out of bed and manage care. But feels stronger than she did when she first arrived. Family history regarding appeal process to try to get into usp facility. She denies any fever cough or chills,, no shortness of breath and feels like she has almost completely recovered from pneumonia. Will wait for appeal process Adult diet Regular 24HR INTAKE/OUTPUT: Intake/Output Summary (Last 24 hours) at 08/07/2024 1636 Last data filed at 08/07/2024 0900 Gross per 24 hour Intake 610 ml Output 350 ml Net 260 ml Past Medical History: Medical History[1] LABS: CBC: Recent Labs 08/05/2421308/06/24 01108/07/24 013 WBC 9.9 7.8 8.7 RBC 3.80 3.47* 3.38* HGB 12.0 10.7* 10.5* HCT 38.5 35.3 33.8* MCV 101.3* 101.7* 100.0* RDW 13.9 14.0 14.3 PLT 221 166 189 BMP: Recent Labs 08/05/2421308/06/24 0118 08/07/24 013 NA 141 141 141 K 4.3 3.8 3.7 CL 100 101 101 CO2 36* 33* 33* BUN 25* 27* 28* CREATININE 0.57 0.56* 0.59 GLUCOSE 102 93 124* CALCIUM 9.4 8.9 9.3 ANIONGAP 5 7 7 LIVER PROFILE:No results for input(s): "AST", "ALT", "BILITOT", "ALKPHOS", "PROT" in the last 72 hours. No lab exists for component: LABALBU PT/INR: No results for input(s): "PROTIME", "INR" in the last 72 hours. CARDIAC ENZYMES: No results for input(s): "TROPONINI" in the last 72 hours. Procalcitonin: No results found for: "PROCAL" COVID-19 PCR: No results for input(s): "COVID19" in the last 72 hours. Objective: Vitals: BP 122/80 (BP Location: Right arm, Patient Position: Lying) Pulse 77 Temp 36.1 C (97 F) (Temporal) Resp 18 Ht 5' 4" (1.626 m) Wt 89 lb 1.1 oz (40.4 kg) SpO2 90% BMI 15.29 kg/m Pulse Ox: SpO2 Av % Min: 90 % Max: 94 % Supplemental O2: O2 Flow Rate (L/min): 3 L/min Physical Exam Vitals and nursing note reviewed. HENT: Mouth/Throat: Pharynx: Oropharynx is clear. Eyes: Conjunctiva/sclera: Conjunctivae normal. Cardiovascular: Rate and Rhythm: Normal rate. Heart sounds: No murmur heard. Pulmonary: Effort: Pulmonary effort is normal. No respiratory distress. Breath sounds: No wheezing or rales. Comments: Nasal cannula to 2 L oxygen Abdominal: General: Bowel sounds are normal. There is no distension. Tenderness: There is no abdominal tenderness. There is no guarding. Comments: Thin appearance Musculoskeletal: General: Signs of injury present. No tenderness. Comments: left sided cast above elbow Skin: General: Skin is warm. Capillary Refill: Capillary refill takes less than 2 seconds. Findings: Bruising (Bilateral upper and lower extremity) present. Comments: Hip scars bilaterally Neurological: General: No focal deficit present. Mental Status: She is alert and oriented to person, place, and time. Medications: Scheduled PRN Scheduled Meds[2] PRN Meds[3] Continuous Continuous Meds[4] Assessment Data: (CAT1) Reviewed 3 or more notes from different specialty or health system (each=1). (CAT1) Reviewed 3 or more labs/studies ordered by another provider not previously counted (each=1, panels count as 1). (LOW: 2x CAT1 or independent historian MOD: 3x CAT1 or 1x CAT3 EXTENSIVE: 3x CAT1 and 1x CAT3) Acute, acute on chronic, unstable/uncontrolled chronic problems/diagnoses: 8-year-old female with history of COPD presents with worsening weight loss, failure to thrive, and increased shortness of breath. Failure to thrive with severe malnourishment Assessment: Patient has experienced significant unintentional weight loss of 40 pounds, with current weight at 89 pounds. She reports increased anorexia and no desire to eat or drink. Lab results show low albumin (3) and low folate (5.2), indicative of malnutrition. This condition is likely exacerbated by her chronic respiratory failure and severe emphysema. Plan: - Palliative care consultation for management of failure to thrive and debility - [facility] [facility]ELTER evaluation: recommended regular solids with thin liquids, sitting upright, slow rate of intake, and small bites - group home's has been denied - will need appeal. - Geriatrics involvement for assisted living waiver exploration - PT and OT referrals Chronic respiratory failure with severe emphysema Polymicrobial pneumonia including Pseudomonas Moraxella in the Streptococcus, suspect aspiration Hx of h eavy tobacco abuse Assessment: Patient has a history of COPD with chronic shortness of breath on exertion. She arrived on 3 liters of oxygen, which is her baseline. Last PFT shows FEV1 of 11.4% and 50% predicted. CT chest shows severe pulmonary emphysema and new round-shaped septal spots, opacity in left lower lobe, possibly indicating pneumonia or lung infarction. Neoplasm is considered unlikely. Plan: - Continue oxygen therapy at 3 liters - CT chest, abdomen, and pelvis - new wedge- shaped subpleural airspace opacity in left lower lobe, - Pulmonology consultation - will continue antibiotics until 7 day duration until 08/07 - Continue bronchodilator therapy: Dulera and Spiriva with tapering dosing - Incentive spirometry - Outpatient pulmonary function testing Chronic pain (left elbow fracture) L-supracondylar humerus fracture related to severe osteoporosis Assessment: Patient reports left elbow pain since a fall in April. Imaging confirms a left elbow fracture several months old. [facility] was [facility]. Plan: - Continue Tylenol 650 mg BID - Morphine 15 mg Q4 hours for pain and shortness of breath - Discontinued Flexeril if possible and if need to restart a muscle relax use tizanidine instead Anxiety and depression Assessment: Patient is on multiple psychotropic medications for anxiety and depression management. Plan: - Continue: - Wellbutrin 150 mg PO daily - Effexor 150 mg daily - weaned off and discontinued during admission - Buspirone 15 mg BID - Mirtazapine 15 mg at bedtime - Adjust: - Decrease paroxetine from 40 mg to 30 mg daily - Change Seroquel from 200 mg to 50 mg at bedtime - Discontinue: - Sudafed - Consider slow outpatient weaning of gabapentin - Monitor for improvement in appetite with medication adjustments Severe malnutrition with suspected pulmonary cachexia Plan As a result of the above findings & factors, the following mgmt was pursued: - 08/04- VS, labs reviewed, P2P completed for patient - unable to get approved -still denied as they stated her contact emiliano assistance - showing she is to independent for SNF placement - 08/05- VS, labs reviewed, continue antibiotics until 08/07, discussed with antibiotic stewardship, will need to Appeal P2P, vs considering trying to get AL - 08/06 - VS, labs reviewed, last day of antibiotic therapy, will need to wait on appeal for SNF placement, daugther cannot manage helping patient at home and she will need placement in the future. - 08/07-vital signs, labs obtained, awaiting for appeal for usp facility, if that gets denied will need home health, - am labs, replace lytes prn - PT/OT/CM/SW - delirium precautions: increase activity and limit nighttime disturbances - DVT prophylaxis: enoxaparin and encourage ambulation Complexity: Chronic illness with severe exacerbation, progression, or side effect of tx (HIGH). Risk: Admission to hospital-level care was considered or occurred (HIGH). Advance Directive: DNR-CCA Anticipated Discharge - Date - - Location - SNF vs home with home health - Pending the following - final placement Total time spent (which include face to face and non face to face encounters) : 38 minutes Toxic drug monitoring/narrow therapeutic index drug monitoring : # Drug name : lovenox # Route administered : SQ # Method of monitoring : Monitor for bleeding Extended Emergency Contact Information Primary Emergency Contact: Karishma Deluca Address: [address] [place] [address] [address] [place], [address] Mobile Relation: Daughter Secondary Emergency Contact: Jace Deluca Mobile Relation: Son Rena Tuyet Beverly MD Division of Hospitalist Medicine [facility] [1] Past Medical History: Diagnosis Date Abnormal stress test Acute exacerbation of chronic obstructive pulmonary disease (HCC) 04/12/2018 Allergic rhinitis Arthritis Asthma Bronchitis Cancer (CMS/HCC) (HCC) skin Cervical cancer (HCC) Chest pain COPD (chronic obstructive pulmonary disease) (HCC) USE OXYGEN 3 L AT NIGHT DDD (degenerative disc disease), cervical Defect, retina, with detachment right DJD (degenerative joint disease), lumbar Emphysema lung (HCC) Former smoker Hematuria SCHEDULED FOR THE PROCEDURE /SURGERY ON 02/11/2017 Hypokalemia Lung nodules Near syncope 09/19/2023 Osteoporosis Palpitations Pneumonia Recurrent major depression (HCC) Sciatica Thoracic compression fracture (HCC) Vitamin D deficiency [2] acetaminophen, 650 mg, Oral, BID albuterol, 2.5 mg, Nebulization, BID aspirin, 81 mg, Oral, Daily buPROPion XL, 150 mg, Oral, Daily busPIRone, 15 mg, Oral, BID calcitonin, 50 Units, IntraMUSCular, Daily cefepime, 2,000 mg, IntraVENous, q8h cetirizine, 5 mg, Oral, Daily enoxaparin, 30 mg, SubCUTAneous, Daily fluticasone, 2 spray, Each Nostril, Daily folic acid, 1 mg, Oral, Daily melatonin, 3 mg, Oral, Nightly mirtazapine, 15 mg, Oral, Nightly mometasone-formoterol, 2 puff, Inhalation, BID montelukast, 10 mg, Oral, Nightly PARoxetine, 30 mg, Oral, q AM predniSONE, 10 mg, Oral, Daily tiotropium, 2 puff, Inhalation, Daily [3] PRN medications: acetaminophen OR acetaminophen, albuterol, iopamidol, morphine, naloxone, ondansetron ODT OR ondansetron, polyethylene glycol (PEG) 3350, QUEtiapine, sodium chloride [4] Nutrition Assessment Type and Reason for Visit: Reassess (follow up on ONS -patient is consuming) Nutrition Recommendations/Plan: Suggest to continue Adult diet Regular to promote intake. Very SOB . Will continue Ensure Plus hi protein tid ( 350 alexus, 13-20 gm pro/serving) to assist with weight gain/maintenance . Continues to lose wt. Continue remeron, folvite Please document PO intakes -diet and ONS-consistently in the flowsheet to better assess intake adequacy. Monitor labs, status, intakes to reassess. Follow up at least weekly Malnutrition Assessment: Malnutrition Status: Severe malnutrition Context: Chronic Illness Findings of the 6 clinical characteristics of malnutrition: Energy Intake: 75% or less estimated energy requirements for 1 month or longer Weight Loss: Greater than 20% over 1 year (29% in 1 year) Body Fat Loss: Severe body fat loss Orbital, Buccal region Muscle Mass Loss: Severe muscle mass loss Temples (temporalis), Scapula (trapezius), Hand (interosseous) Fluid Accumulation: No significant fluid accumulation Hotel [employer] Strength: Nutrition Assessment: per MD-BRIEF HOSPITAL COURSE: 68-year-old female with a history of COPD who presents to the emergency department with worsening weight loss, failure to thrive, and increased shortness of breath. The patient reports significant weight loss, stating her weight has decreased to 89 pounds, with a total loss of 40 pounds. She describes increased anorexia, expressing no desire to eat or drink and feeling "just not hungry." The patient's shortness of breath, which is chronic due to her COPD, has worsened. She arrived at the emergency department requiring 3 liters of oxygen. Her baseline respiratory status includes chronic respiratory failure, requiring 3 liters of oxygen, and severe emphysema. In April, the patient experienced a fall resulting in left elbow pain, which has persisted since then. A fracture was identified on imaging, described as "several months old." The patient's condition has significantly impacted her overall health and functioning, leading to a failure to thrive diagnosis. Her severe malnourishment and unintentional weight loss have contributed to her debilitated state. The combination of her respiratory issues, chronic pain, and nutritional deficits has led to a decline in her overall health status. Recent healthcare interactions include consultations with [facility], palliative care, pulmonology, orthopedic surgery, geriatrics, and speech-language pathology. These consultations were initiated to address various aspects of her complex medical condition.Pulmonology was consulted for triple bacterial pneumonia in which she was treated, for Pseudomona, Moraxella and Streptocccus, on top of her severe pneumonia, with increased oxygen requirements on top of her chronic respiratory failure.Patient condition has significnatly improved and she is able to walk more, still feels difficulties with transiton from bed to standing and back down Per MD-Acute, acute on chronic, unstable/uncontrolled chronic problems/diagnoses: 8-year-old female with history of COPD presents with worsening weight loss, failure to thrive, and increased shortness of breath. 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 Estimated Daily Nutrient Needs: Energy Requirements Based On: Kcal/kg Weight Used for Energy Requirements: Weight for Energy Calculation (kg): 40.4 kg Total Energy Requirements (kcals/day): 30-35-40 or 1212- to 1414- 1616 Weight Used for Protein Requirements: Current Weight in Kg Used for Protein Requirements: 40.4 kg Estimated Total Protein (g/day): 1.2-1.8 or 48-73 Estimated Daily Total Fluid (ml/day): 1.2-1.6 liters Nutrition Related Findings: wt decreased since admission,jeri 20, 08/05 bm, i/o + 2 liters ,alb 3, hgb 10.7, co2-33, folate 5.2- ,md to start folate - low , on remeron Wound Type: None Current Nutrition Therapies: Adult diet Regular Current Oral Intake Average Meal Intake: 26-50%, 51-75% Average Supplements Intake: 51-75% Anthropometric Measures: Height: 162.6 cm (5' 4") Current Body Weight: 40.4 kg (89 lb 1.1 oz) Weight Source: Bed Scale (08/03/24) Admission Body Weight: 40.6 kg (89 lb 8.1 oz) (07/30/24 PCP office) Usual Body Weight: 55.5 kg (122 lb 5.7 oz) % Weight Change (Calculated): -27.2 [place] Body Weight (lbs) (Calculated): 120 lbs [place] Body Weight (Kg) (Calculated): 55 kg % [place] Body Weight (Calculated): 74.2 % BMI (kg/m2) (Calculated): 15.3 Weight Adjustment For: No Adjustment BMI Categories: Underweight (BMI less than 22) age over 65 Nutrition Diagnosis: Severe malnutrition, In context of chronic illness related to inadequate protein-energy intake as evidenced by severe muscle loss, severe loss of subcutaneous fat, weight loss greater than or equal to 20% in 1 year, poor intake prior to admission Increased nutrient needs related to impaired respiratory function, increase demand for energy/nutrients as evidenced by (COPD and emphysema) Nutrition Interventions: Nutrition Education/Counseling: Education not indicated Coordination of Nutrition Care: Continue to monitor while inpatient Plan of Care discussed with: patient and RN Goals: Previous Goal Met: Progressing toward Goal(s) Goals: Meet at least 75% of estimated needs, other (specify) Specify Other Goals: educate on need for high calorie supplement Nutrition Monitoring and Evaluation: Behavioral-Environmental Outcomes: None Identified Food/Nutrient Intake Outcomes: Food and Nutrient Intake, Supplement Intake Physical Signs/Symptoms Outcomes: Biochemical Data, Chewing or Swallowing, GI Status, Nausea or Vomiting, Fluid Status or Edema, Hemodynamic Status, Meal Time Behavior, Nutrition Focused Physical Findings, Skin, Weight Discharge Planning: Continue current diet, Continue Oral Nutrition Supplement Phillip Bradshaw RD Contact: *[phone] or secure chat [facility] Geriatric Medicine Inpatient Consult Service Admission Date: 07/30/2024 Assessment Principal Problem: Adult failure to thrive Active Problems: Severe malnutrition (CMS/HCC) (HCC) Debility Anxiety and depression Cognitive deficits At risk for delirium Chronic pain Plan Debility --contributing factors include medications, COPD, malnutrition, cognitive decline, subacute elbow fracture --uses a cane at baseline. --PT and OT eval - current recommendation is SNF --on several medications that can contribute to falls. See below. --Palliative care following - changed from Percocet to Morphine for shortness of breath --Family looking into AL waiver --08/06: insurance has been denying SNF. Sounds like she will be appealing. Severe Malnutrition --continue Mirtazapine --dietary following --recommend psychiatry outpatient follow up for further review of medications --08/06: appetite OK Anxiety Depression --Wellbutrin XL 150mg daily - continue at this time. Consider weaning outpatient. May contribute to weight loss. --Buspirone 15mg BID - Continue. --Mirtazapine 15mg at HS - continue. --Paroxetine 40 mg daily - Risk of anticholinergic side effects (falls, confusion). Consider slow wean to avoid withdrawal. Decreased to 30 mg daily. Further wean outpatient. --Seroquel 200mg at HS - changed to 50mg HS PRN and will monitor. Concern for fall risk. --Recommend outpatient Psychiatry follow up. --08/06: continue reduced dose of seroquel Cognitive deficits --patient knowledgeable of her medical history and medications --+ history of cognitive decline at home. + history of decline in ADL's and IADL's - Debility, COPD, medications, and depression also contributing to functional decline. --Head imaging - CT head 04/28/24: no acute process. CT head 09/20/23: Unchanged small area of encephalomalacia in the lateral aspect of the right occipital lobe. --History concerning for baseline cognitive deficits. --Recommend outpatient follow up at [facility] for more in depth cognitive evaluation when in usual state of health. --08/06 Stable Chronic pain --Continue Tylenol 650mg BID --Takes Flexeril 5mg - ordered for BID dosing at home (takes occasionally). Recommend avoiding/decreasing use due to fall/confusion risk. --Takes Oxycodone-Acetaminophen 5/325mg at home - reports taking every 6 hours. Currently on Morphine, per palliative medicine --PRN flexeril stopped on 516 as she wasn't using medication in hospital and it is serotonergic. Consider low dose of tizanidine prn if she develops muscle spasms 08/06: stable At risk for delirium --Risk factors: pain, advanced age, sensory impairments, acute illness, high risk medications including steroids, and baseline cognitive deficits --Encourage PO intake, time up in chair, family visits, supervised ambulation, and sleep hygiene --If agitated, assess for and consider treating for pain --QTc= 439 ms --Continue scheduled melatonin at --08/06 : She is not delirious Follow-up: prn, please page with any questions/issues Subjective Chief Complaint: shortness of breath Geriatrics consulted for "falls at home, failure to thrive" HPI- The patient is known to me. 68 y.o. year-old female with past medical history of COPD, cervical cancer, DDD, DJD, osteoporosis, depression, compression fracture, vitain D deficiency, anxiety who was admitted to acute care for weight loss and shortness of breath. Diagnosed with Failure to Thrive, severe protein-calorie malnutrition, closed supracondylar fracture of left elbow, COPD. Ortho evaluated and diagnosed the fracture as subacute from Apr when she had a fall. Placed in long arm cast. Started on steroids for COPD exacerbation. Also being treated for pneumonia Reviewed pulmonology progress note Reviewed primary team progress note - patient improving. Going to appeal insurance to try to get her in SNF CBC: normal wbc, plt. Hgb 10.7 TSH: CO2 33, bun 27 Interval History: -She is feeling good today. Feels like she is getting better. -feels the most short of breath around 6 pm in the evenings. Usually requests a breathing treatment around that time. -Sleep is so-so. She does wake up a couple of times -appetite is good -she is disappointed that her insurance has been denying SNF Review of Systems Constitutional: Negative for fever. Respiratory: Positive for shortness of breath. Cardiovascular: Negative for leg swelling. Gastrointestinal: Negative for abdominal pain, constipation and diarrhea. Genitourinary: Negative for dysuria. Musculoskeletal: Positive for arthralgias and back pain (chronic). Negative for myalgias. Psychiatric/Behavioral: Negative for confusion. Objective BP 116/72 (BP Location: Right arm, Patient Position: Lying) Pulse 82 Temp 36.6 C (97.9 F) (Temporal) Resp 18 Ht 5' 4" (1.626 m) Wt 89 lb 1.1 oz (40.4 kg) SpO2 93% BMI 15.29 kg/m No intake or output data in the 24 hours ending 08/06/24 1153 Wt Readings from Last 3 Encounters: 08/03/24 89 lb 1.1 oz (40.4 kg) 04/27/24 108 lb (49 kg) 09/20/23 115 lb (52.2 kg) Current Medications[1] Physical Exam Constitutional: General: She is not in acute distress. Appearance: She is not ill-appearing. Comments: Sitting up at edge of bed HENT: Head: Normocephalic and atraumatic. Cardiovascular: Rate and Rhythm: Normal rate and regular rhythm. Heart sounds: No murmur heard. No friction rub. No gallop. Pulmonary: Effort: Pulmonary effort is normal. Breath sounds: Decreased breath sounds present. No wheezing, rhonchi or rales. Musculoskeletal: Right lower leg: No edema. Left lower leg: No edema. Comments: Left arm in a cast Neurological: Mental Status: She is alert. Psychiatric: Attention and Perception: Attention normal. Mood and Affect: Affect normal. Speech: Speech normal. Labs and Imaging: Recent Results (from the past 24 hours) Basic metabolic panel Collection Time: 08/06/24 1:18 AM Result Value Ref Range SODIUM 141 136 - 145 mmol/L POTASSIUM 3.8 3.5 - 5.1 mmol/L CHLORIDE 101 98 - 107 mmol/L CARBON DIOXIDE 33 (H) 23 - 31 mmol/L UREA NITROGEN 27 (H) 9 - 23 mg/dL CREATININE 0.56 (L) 0.57 - 1.11 mg/dL GLUCOSE 93 82 - 115 mg/dL CALCIUM 8.9 8.8 - 10.0 mg/dL ANION GAP 7 3 - 13 mmol/L eGFR >90.0 >60.0 mL/min/1.73m*2 CBC auto differential Collection Time: 08/06/24 1:19 AM Result Value Ref Range Auto WBC 7.8 3.6 - 10.7 10*3/uL RBC 3.47 (L) 3.80 - 5.20 10*6/uL Hemoglobin 10.7 (L) 11.7 - 16.0 g/dL Hematocrit 35.3 35.0 - 47.0 % MCV 101.7 (H) 77.0 - 99.0 fL MCH 30.8 26.0 - 34.0 pg MCHC 30.3 (L) 30.5 - 36.0 % RDW 14.0 11.5 - 15.0 % Platelets 166 140 - 440 10*3/uL MPV 9.6 9.0 - 12.7 fL nRBC 0.0 0.0 - 2.0 /100 WBCs Neutrophils Relative 68.0 38.0 - 82.0 % Lymphocytes Relative 18.1 15.0 - 45.0 % Monocytes Relative 9.6 5.0 - 13.0 % Eosinophils Relative 3.3 0.0 - 6.0 % Basophils Relative 0.6 0.0 - 2.0 % Immature Grans % 0.4 0.0 - 2.0 % Neutrophils Absolute 5.3 1.8 - 7.5 10*3/uL Lymphocytes Absolute 1.4 1.0 - 4.3 10*3/uL Monocytes Absolute 0.8 0.0 - 0.9 10*3/uL Eosinophils Absolute 0.3 0.0 - 0.5 10*3/uL Basophils Absolute 0.1 0.0 - 0.2 10*3/uL Immature Grans Absolute 0.0 <0.1 10*3/uL Lab Results Component Value Date TSH 0.28 (L) 07/30/2024 Lab Results Component Value Date [id number] 639 07/30/2024 Lab Results Component Value Date VITD25 30 09/21/2023 [1] Current Facility-Administered Medications: acetaminophen (Tylenol) tablet 650 mg, 650 mg, Oral, q6h PRN OR acetaminophen (Tylenol) suppository 650 mg, 650 mg, Rectal, q6h PRN, Lauren Serna MD acetaminophen (Tylenol) tablet 650 mg, 650 mg, Oral, BID, Saad Telles APRN - AN/SSN 2 4 OPERATOR, 650 mg at 08/06/24 0841 albuterol (2.5 MG/3ML) 0.083% nebulizer solution 2.5 mg, 2.5 mg, Nebulization, q4h PRN, Lauren Serna MD, 2.5 mg at 08/05/24 1709 albuterol (2.5 MG/3ML) 0.083% nebulizer solution 2.5 mg, 2.5 mg, Nebulization, BID, Rena Beverly MD, 2.5 mg at 08/06/24 0911 aspirin EC tablet 81 mg, 81 mg, Oral, Daily, Lauren Serna MD, 81 mg at 08/06/24 0841 buPROPion XL (Wellbutrin XL) 24 hr tablet 150 mg, 150 mg, Oral, Daily, Lauren Serna MD, 150 mg at 08/06/24 0841 busPIRone (Buspar) tablet 15 mg, 15 mg, Oral, BID, Lauren Serna MD, 15 mg at 08/06/24 0842 calcitonin (Miacalcin) injection 50 Units, 50 Units, IntraMUSCular, Daily, Lauren Serna MD, 50 Units at 08/06/24 0839 cefepime (Maxipime) 2,000 mg in sodium chloride 0.9 % 50 mL IVPB Mini-Bag Plus, 2,000 mg, IntraVENous, q8h, Dejuan Bishop MD, Last Rate: 12.5 mL/hr at 08/06/24 0840, 2,000 mg at 08/06/24 0840 cetirizine (ZyrTEC) tablet 5 mg, 5 mg, Oral, Daily, Dejuan Bishop MD, 5 mg at 08/06/24 0842 enoxaparin (Lovenox) syringe 30 mg, 30 mg, SubCUTAneous, Daily, Lauren Serna MD, 30 mg at 08/06/24 0840 fluticasone (Flonase) nasal spray 2 spray, 2 spray, Each Nostril, Daily, Lauren Serna MD, 2 spray at 08/01/24 1347 iopamidol (Isovue-370) 76 % injection 75 mL, 75 mL, IntraVENous, Once PRN, Rena Beverly MD melatonin tablet 3 mg, 3 mg, Oral, Nightly, Lauren Serna MD, 3 mg at 08/05/242043 mirtazapine (Remeron) tablet 15 mg, 15 mg, Oral, Nightly, Lauren Serna MD, 15 mg at 08/05/242043 mometasone-formoterol (Dulera 200) 200-5 MCG/ACT inhaler 2 puff, 2 puff, Inhalation, BID, Lauren Senra MD, 2 puff at 08/06/24 0839 montelukast (Singulair) tablet 10 mg, 10 mg, Oral, Nightly, Lauren Serna MD, 10 mg at 08/05/24 2044 morphine (MSIR) tablet 15 mg, 15 mg, Oral, q4h PRN, Imelda Bernard APRN - [place], 15 mg at 08/06/24 0856 naloxone (Narcan) injection 0.4 mg, 0.4 mg, IntraVENous, q5 min PRN, Lauren Serna MD ondansetron ODT (Zofran-ODT) disintegrating tablet 4 mg, 4 mg, Oral, q8h PRN OR ondansetron (Zofran) injection 4 mg, 4 mg, IntraVENous, q6h PRN, Lauren Serna MD PARoxetine (Paxil) tablet 30 mg, 30 mg, Oral, q AM, Saad Telles APRN - AN/SSN 2 4 OPERATOR, 30 mg at 08/06/24 0841 polyethylene glycol (PEG) 3350 (Miralax) packet 17 g, 17 g, Oral, Daily PRN, Lauren Serna MD [COMPLETED] predniSONE (Deltasone) tablet 30 mg, 30 mg, Oral, Daily, 30 mg at 08/04/24 0927 FOLLOWED BY [COMPLETED] predniSONE (Deltasone) tablet 20 mg, 20 mg, Oral, Daily, 20 mg at 08/06/24 0841 FOLLOWED BY [START ON 08/07/2024] predniSONE (Deltasone) tablet 10 mg, 10 mg, Oral, Daily, Leann Cross APRN - AN/SSN 2 4 OPERATOR QUEtiapine (SEROquel) tablet 50 mg, 50 mg, Oral, Nightly PRN, Saad Telles APRN - AN/SSN 2 4 OPERATOR, 50 mg at 08/05/24 2048 sodium chloride ([place]) 0.65 % nasal spray 2 spray, 2 spray, Each Nostril, q2h PRN, Dejuan Bishop MD, 2 spray at 08/02/24 1621 tiotropium (Spiriva Respimat) 2.5 MCG/ACT inhaler 2 puff, 2 puff, Inhalation, Daily, Lauren Serna MD, 2 puff at 08/06/24 0839 Images from the original note were not included. PHYSICAL THERAPY [facility] Treatment Note Name/MRN: Gonzalo Deluca ([id number]) Date of : 1955 Age: 68 y.o. Room/Bed: B2-254/B2-254 B Visit #: 5 out of 7 Discharge Recommendation: Snf Facility Other: TBD at next level of care, pt owns a cane Assessment Pt continues to make good overall progress towards established therapy goals this date. Remains limited by severe SOB and fatigue with mobility. Pt completed bed mobility at Mod I, STS transfers with IV pole at CGA, Gait training with IV pole completed at CGA/Min Ax1. Pt tolerated all activity fair and gave good overall effort. Vitals noted in subjective section below. Pt will continue to benefit from skilled therapy services during acute medical stay to improve upon presenting deficits prior to discharge to SNF. Subjective Pt pleasant and agreeable to PT session. RN cleared pt for session. Vitals 3L O2 at start of session O2 sat 90% with a drop to 82% with short ambulation. Increased O2 to 6L during seated rest for recovery pre-gait SpO2 95% dropping to 87% post ambulation and up to 92% following 2 minute seated rest with PLB. Returned to 3L at end of session. Pain: Pt denies any current pain. Medical Precautions: No active isolations Proper PPE donned/doffed in accordance with facility standards. Fall Risk: Webb Fall Risk Score: 85 (Low Risk) Webb Fall Risk Score: 85 (High Risk) Precautions/Restrictions: Lines/Drains/Airways: PIV, O2 Fall Precautions Overall Cognitive Status: WFL Overall Orientation Status: Oriented x4 Family/Caregiver Present: none Objective Bed Mobility Supine to sit: Modified Independent Sit to supine: Modified Independent Mod I for all bed mobility. Slow and safe throughout. No LOB. Transfers/Mobility Sit to stand: Contact Guard Stand to sit: Contact Guard Pt completed STS from EOB and bedside chair x3 with IV pole for support at CGAx1. Cues given for pacing and sequencing. Fair return noted. Limited d/t SOB with activity Device(s) used: IV Pole Ambulation Ambulation 1 Assistive device(s) used: IV Pole Assist level: Contact Guard, Min Assist Distance (ft): 15ft x2, 30ft x2 Quality of gait: antalgic, reciprocal stepping, B foot clearance, shuffling, narrow SADIE, slow lauren, path deviations Multiple bouts of gait training completed with IV pole for support. CGA with Min Ax1 d/t 2 bouts of increased gait instability and deviations during onset of fatigue/SOB. Able to stabilize following cues. Increased time needed for recovery. Plan Continue acute PT per plan of care. Safety/Education Safety Safety Devices in place: All fall risk precautions in place, call light within reach, left in bed, gait belt, patient at risk for falls, nurse notified, and no alarms engaged upon entry Restraints: N/A Education Education Given To: patient Education Provided: PT Role, PT Goals, Gait Training, Plan of Care, Transfer Training, Energy Conservation, IADL Safety, Equipment, Fall Prevention Education, Discharge Recommendations, Benefits of Increasing Activity, and Breathing Techniques Education Method: Verbal, Demonstration, and Teach Back Barriers to Learning: None Education Outcome: Verbalized Understanding, Demonstrated Understanding, and Continued Education Needed Outcome Measures AM-PAC AM-PAC Inpatient Mobility Raw Score (No Stairs) : 17 [facility] Score: Walked 25 ft or more (i.e. walked outside of room) Goals Patient Stated Goal: to improve walking Encounter Problems Encounter Problems (Active) Balance Patient will maintain dynamic standing balance for 5 minutes with modified independence in order to demonstrate decreased risk of falling. (Progressing) Start: 07/31/24 Expected End: 08/14/24 Exercise Patient will complete lower extremity exercises for 1-2 sets / 10 reps in order to improve strength and activity tolerance for mobility. (Not Addressed) Start: 07/31/24 Expected End: 08/14/24 Mobility Patient will ambulate 100 feet with modified independence and least restrictive device in order to improve safety and independence with mobility. (Progressing) Start: 07/31/24 Expected End: 08/14/24 Patient will ascend and descend 13 stairs with one railing and supervision in order to safely negotiate home. (Not Addressed) Start: 07/31/24 Expected End: 08/14/24 Safety Patient will recall/demonstrate weight bearing and/or ROM restrictions with all functional mobility in order to promote healing and safety with functional tasks. (Progressing) Start: 07/31/24 Expected End: 08/14/24 Transfers Patient will perform bed mobility with modified independence in order to improve independence and prepare for out of bed mobility. (Completed) Start: 07/31/24 Expected End: 08/14/24 Resolved: 08/03/24 Patient will complete functional transfers with least restrictive device with modified independence in order to prepare for ambulation. (Progressing) Start: 07/31/24 Expected End: 08/14/24 Therapy Time Individual Co-treatment Time In 0945 Time Out 0959 Minutes 14 Timed Code Treatment Minutes: 10 Minutes (gait x1) Rayo Joseph PT Images from the original note were not included. [facility] [place] [address] [place] [id number] Patient - Gonzalo Deluca, Age - 68 y.o. - 1955 Room Number - B2-254/B2-254 B Consulting - Rena Beverly MD Primary Care Physician [phone] Date of Admission - 07/30/2024 4:40 PM Hospital Day - 5 Chief Complaint : weight loss, shortness of breath, failure to thrive Gonzalo Deluca is a 68 y.o. female who pulmonary is following for severe emphysema PMH: COPD, emphysema, chronic respiratory failure 3 liters, pulmonary nodule, sciatica, and tobacco use. Patient quit smoking cigarettes 6 years ago but she continues to vape. Patient reports significant weight loss of around 40 lbs over the last few months. She is not currently following with a staff genetic counselor. She is on Breo ellipta, Spiriva, and prn Albuterol at home. Interval history Patient denies any chest pain, fever or chills this morning. Dyspnea and cough have improved. On baseline 3 liters NC. No new overnight concerns. A pertinent review of systems was performed and was otherwise non-contributory except as detailed in subjective section above. Objective Vitals: BP 116/72 (BP Location: Right arm, Patient Position: Lying) Pulse 82 Temp 36.6 C (97.9 F) (Temporal) Resp 18 Ht 5' 4" (1.626 m) Wt 89 lb 1.1 oz (40.4 kg) SpO2 93% BMI 15.29 kg/m Pulse Ox: SpO2 Av.4 % Min: 91 % Max: 94 % Supplemental O2: O2 Flow Rate (L/min): 3 L/min I/O 24HR INTAKE/OUTPUT: No intake or output data in the 24 hours ending 08/06/24 1028 Exam Physical Exam Vitals and nursing note reviewed. Constitutional: General: She is not in acute distress. Comments: Thin appearance HENT: Head: Normocephalic and atraumatic. Nose: Nose normal. No congestion or rhinorrhea. Eyes: General: No scleral icterus. Right eye: No discharge. Left eye: No discharge. Cardiovascular: Rate and Rhythm: Normal rate and regular rhythm. Pulmonary: Effort: Pulmonary effort is normal. No respiratory distress. Breath sounds: No stridor. No wheezing or rales. Genitourinary: Comments: Left arm cast Neurological: Mental Status: She is alert. Medications Current Medications Scheduled Meds[1] PRN Mediations PRN Meds[2] Labs CBC Results from last 7 days Lab Units 08/06/24 0119 WBC AUTO 10*3/uL 7.8 HEMOGLOBIN g/dL 10.7* HEMATOCRIT % 35.3 PLATELETS 10*3/uL 166 BMP: Results from last 7 days Lab Units 08/06/24 0118 08/05/24 0214 08/04/24 0043 SODIUM mmol/L 141 141 142 POTASSIUM mmol/L 3.8 4.3 4.2 CHLORIDE mmol/L 101 100 104 CO2 mmol/L 33* 36* 32* BUN mg/dL 27* 25* 26* CREATININE mg/dL 0.56* 0.57 0.55* GLUCOSE mg/dL 93 102 111 CALCIUM mg/dL 8.9 9.4 8.4* ABG: LIVER PROFILE Results from last 7 days Lab Units 07/30/24 1729 ALK PHOS U/L 97 BILIRUBIN TOTAL mg/dL 0.2 BILIRUBIN DIRECT mg/dL 0.1 PROTEIN TOTAL g/dL 6.5 ALT U/L 10 AST U/L 21 Cultures Respiratory pathogens PCR: Negative Respiratory culture: many respiratory linus, many pseudomonas aeruginosa Pneumonia PCR panel: + PSA, Moraxella catarrhalis, Strep agalactiae Radiology CXR 07/30/24: IMPRESSION: No acute cardiopulmonary abnormality identified. Chronic appearing lung changes CT chest, abdomen, pelvis with contrast 07/31/24: IMPRESSION: 1. New wedge-shaped subpleural airspace opacity in the left lower lobe is most likely either focal pneumonia or a lung infarct. Neoplasm is unlikely, but follow-up to resolution is recommended. 2. No acute findings in the abdomen or pelvis. 3. Multiple chronic osteoporotic compression fractures in the thoracic and lumbar spine. 4. Severe pulmonary emphysema. Active Hospital Problem List Problem List[3] Assessment LLL opacity suspicious for pneumonia vs lung infarct Polymicrobial LRTI, + PSA, Moraxella and Strep agalactiae COPD Severe emphysema Tobacco use disorder Severe malnutrition, pulmonary cachexia Recommendations CT chest with new wedge shaped opacity in the LLL concerning for pneumonia vs lung infarct. Pneumonia PCR panel + for Pseudomonas, Moraxella and Strep agalactiae. Final respiratory culture + for Pseudomonas aeruginosa. Plan for IV Cefepime through 08/07 per ID stewardship recommendations. Recommend follow up CT chest in 4-6 weeks to ensure resolution of pneumonia On baseline 3 liters NC. Maintain SpO2 88-92% Spiriva, Dulera, Albuterol neb's while inpatient. Resume Spiriva and Breo Ellipta at discharge. Consider new PFT's outpatient to determine severity of disease. Last PFT from 2016 Prednisone taper as ordered Josué Mcgraw Counseled on smoking cessation. Patient quit smoking cigarettes 6 years ago but continues to vape. Advised patient to quit smoking completely. PT/OT recommend SNF Advance Directive: DNR-CCA Discharge planning: Patient is stable for SNF from pulmonary standpoint. Hospital follow up scheduled with Elyssa Tesfaye APRN on 08/20/24 Case discussed with nurse and patient Questions and concerns addressed. I have discussed the patient's case and plan of care with my collaborating physician Dr. Aburto [1] acetaminophen, 650 mg, Oral, BID albuterol, 2.5 mg, Nebulization, BID aspirin, 81 mg, Oral, Daily buPROPion XL, 150 mg, Oral, Daily busPIRone, 15 mg, Oral, BID calcitonin, 50 Units, IntraMUSCular, Daily cefepime, 2,000 mg, IntraVENous, q8h cetirizine, 5 mg, Oral, Daily enoxaparin, 30 mg, SubCUTAneous, Daily fluticasone, 2 spray, Each Nostril, Daily melatonin, 3 mg, Oral, Nightly mirtazapine, 15 mg, Oral, Nightly mometasone-formoterol, 2 puff, Inhalation, BID montelukast, 10 mg, Oral, Nightly PARoxetine, 30 mg, Oral, q AM [START ON 08/07/2024] predniSONE, 10 mg, Oral, Daily tiotropium, 2 puff, Inhalation, Daily [2] PRN medications: acetaminophen OR acetaminophen, albuterol, iopamidol, morphine, naloxone, ondansetron ODT OR ondansetron, polyethylene glycol (PEG) 3350, QUEtiapine, sodium chloride [3] Patient Active Problem List Diagnosis Poor venous access Other specified complication of vascular prosthetic devices, implants and grafts, initial encounter ([facility]) Chronic pain COPD (chronic obstructive pulmonary disease) ([facility]) DDD (degenerative disc disease), cervical Leukocytosis Malignant neoplasm of exocervix (HCC) Recurrent major depression (HCC) Pulmonary nodule S/P hysterectomy Sciatica Shortness of breath Supplemental oxygen dependent PNA (pneumonia) H/O: CVA (cerebrovascular accident) Former smoker Nondisplaced fracture of neck of left femur (HCC) Lumbar compression fracture, closed, initial encounter (HCC) Severe malnutrition (CMS/HCC) (HCC) Falls frequently Unintentional weight loss Debility PFO (patent foramen ovale) Adult failure to thrive Anxiety and depression Cognitive deficits At risk for delirium Images from the original note were not included. OCCUPATIONAL THERAPY [facility] Treatment Note Name/MRN: Gonzalo Deluca ([id number]) Date of : 1955 Age: 68 y.o. Room/Bed: B2-254/B2-254 B Visit #: 4 out of 6 Discharge Recommendation: Home with Home health OT, Home with assist PRN Equipment Needed: No Assessment Pt progressing well with OT POC. She completed bed mobility with Mod I. Supervision for transfers and SBA for mobility with no device. Pt able to complete toileting, LB dressing, and hand hygiene with mod I. She remains very limited by per Spo2 desaturations and endurance deficits however at this time, she has progressed to HHC and PRN assist instead of SNF. Pt would likely benefit from [facility] for longer term needs. Subjective Pt sleeping but awoke easily, very pleasant and agreeable to therapy treatment Pain: 0-10 pain scale: 7/10 Location: back Medical Precautions: No active isolations Proper PPE donned/doffed in accordance with facility standards. Fall Risk: Webb Fall Risk Score: 85 (Low Risk) Webb Fall Risk Score: 85 (High Risk) Precautions/Restrictions: Lines/Drains/Airways: 3L via NC, PIV, L UE splint L UE NWBing Fall Precautions Family/Caregiver Present: none Objective ADLs LE Dressing: Modified Independent Toileting: Modified Independent Grooming: Modified Independent Pt able to doff soiled pants and don new pants with mod I while seated on the toilet. She completed bathroom level toileting with mod I. Pt performed hand hygiene at the sink with mod I. Bed Mobility Supine to sit: Modified Independent Sit to supine: Modified Independent Scooting: Modified Independent Pt completed bed mobility tasks with mod I. No c/o dizziness noted with positional changes. Transfers/Mobility Sit to stand: Supervision Stand to sit: Supervision Toilet: Supervision Standing balance: SBA Functional mobility: SBA Pt stood from EOB with no device and supervision. She walked to and from the bathroom with SBA and completed a toilet transfer with supervision. Pt with a lateral sway when walking but no true LOB observed. Spo2 was 92% before mobility and briefly dropped to 83% however poor waveform noted. She returned to 90% within 2 minutes with cues for breathing technique with poor carryover. Device(s) used: None Plan Continue acute OT per plan of care. Safety/Education Safety Safety Devices in place: All fall risk precautions in place, call light within reach, left in bed, and patient at risk for falls Restraints: N/A Education Education Given To: patient Education Provided: OT Role, Plan of Care, Fall Prevention Education, Discharge Recommendations, Benefits of Increasing Activity, and Breathing Techniques Education Method: Verbal Barriers to Learning: None Education Outcome: Continued Education Needed AM-PAC AM-PAC Inpatient Daily Activity Raw Score: 18 ADL Inpatient CMS G-Code Modifier: CK Goals Patient Stated Goal: to go to the bathroom Encounter Problems Encounter Problems (Active) Balance Patient will maintain dynamic standing balance for 3 minutes with modified independence in order to demonstrate decreased risk of falling. (Progressing) Start: 08/01/24 Expected End: 08/07/24 Mobility pt will perform functional mobility and transfers with Mod I (Progressing) Start: 08/01/24 Expected End: 08/07/24 OT Misc pt will use EC/breathing techniques to maintain Spo2 > 90% during functional activities (Progressing) Start: 08/01/24 Expected End: 08/07/24 Encounter Problems (Resolved) Dressings Lower Extremities Patient will dress lower body with mod I (Goal Met) Start: 08/01/24 Expected End: 08/07/24 Resolved: 08/06/24 Toileting Patient will complete toileting tasks at standard toilet with modified independence. (Goal Met) Start: 08/01/24 Expected End: 08/07/24 Resolved: 08/06/24 Therapy Time Individual Co-treatment Time In 0814 Time Out 0826 Minutes 12 Timed Code Treatment Minutes: 12 Minutes (1 ADL) Roopa More OT Hospitalist Progress Note 08/06/2024 Subjective: Admit Date: 07/30/2024 PCP: HERMINIA CASE MD Room#: B2-254/B2-254 B BRIEF HOSPITAL COURSE: 68-year-old female with a history of COPD who presents to the emergency department with worsening weight loss, failure to thrive, and increased shortness of breath. The patient reports significant weight loss, stating her weight has decreased to 89 pounds, with a total loss of 40 pounds. She describes increased anorexia, expressing no desire to eat or drink and feeling "just not hungry." The patient's shortness of breath, which is chronic due to her COPD, has worsened. She arrived at the emergency department requiring 3 liters of oxygen. Her baseline respiratory status includes chronic respiratory failure, requiring 3 liters of oxygen, and severe emphysema. In April, the patient experienced a fall resulting in left elbow pain, which has persisted since then. A fracture was identified on imaging, described as "several months old." The patient's condition has significantly impacted her overall health and functioning, leading to a failure to thrive diagnosis. Her severe malnourishment and unintentional weight loss have contributed to her debilitated state. The combination of her respiratory issues, chronic pain, and nutritional deficits has led to a decline in her overall health status. Recent healthcare interactions include consultations with [facility], palliative care, pulmonology, orthopedic surgery, geriatrics, and speech-language pathology. These consultations were initiated to address various aspects of her complex medical condition. VS on arrival HR 91, RR 18, BP 114/79, Spow 90 % on 3 liters. EKG showed heart rate of 95, normal sinus rhythm. Labs: Hemoglobin 11.2, MCP 103, glucose 80, albumin 3, folate low at 5.2. No WC in urine. Imaging: Left elbow fracture several months old. CT-CAP showed new red shaped sepulchral spats, opacity in left lower lobe, likely pneumonia or lung infarction. Multiple chronic osteoporotic compression fractures in thoracic and lumbar spine. Pulmonology was consulted for triple bacterial pneumonia in which she was treated, for Pseudomona, Moraxella and Streptocccus, on top of her severe pneumonia, with increased oxygen requirements on top of her chronic respiratory failure. Condition improved - SNF denied placement. P2P obtained. Interval History: Discussed with patient - she feels that she is getting stronger, but is aware that she is going to eventually need more assistance - such as an assisted living facility in the future. No fever or chills. Feels that cough has improved and she does not feel short of breath at this time. No headache or dizziness, arm pain is minimal. NO other concerns expressed at this time. Adult diet Regular 24HR INTAKE/OUTPUT: No intake or output data in the 24 hours ending 08/06/24 0841 Past Medical History: Medical History[1] LABS: CBC: Recent Labs 08/04/24 0043 08/05/24 0214 08/06/24 0119 WBC 8.2 9.9 7.8 RBC 3.23* 3.80 3.47* HGB 10.2* 12.0 10.7* HCT 32.5* 38.5 35.3 MCV 100.6* 101.3* 101.7* RDW 13.8 13.9 14.0 PLT 164 221 166 BMP: Recent Labs 08/04/24 0043 08/05/24 0214 08/06/24 0118 NA 142 141 141 K 4.2 4.3 3.8 CL 104 100 101 CO2 32* 36* 33* BUN 26* 25* 27* CREATININE 0.55* 0.57 0.56* GLUCOSE 111 102 93 CALCIUM 8.4* 9.4 8.9 ANIONGAP 6 5 7 LIVER PROFILE:No results for input(s): "AST", "ALT", "BILITOT", "ALKPHOS", "PROT" in the last 72 hours. No lab exists for component: LABALBU PT/INR: No results for input(s): "PROTIME", "INR" in the last 72 hours. CARDIAC ENZYMES: No results for input(s): "TROPONINI" in the last 72 hours. Procalcitonin: No results found for: "PROCAL" COVID-19 PCR: No results for input(s): "COVID19" in the last 72 hours. Objective: Vitals: BP 116/72 (BP Location: Right arm, Patient Position: Lying) Pulse 85 Temp 36.6 C (97.9 F) (Temporal) Resp 18 Ht 5' 4" (1.626 m) Wt 89 lb 1.1 oz (40.4 kg) SpO2 94% BMI 15.29 kg/m Pulse Ox: SpO2 Av.6 % Min: 91 % Max: 94 % Supplemental O2: O2 Flow Rate (L/min): 3 L/min Physical Exam Vitals and nursing note reviewed. HENT: Mouth/Throat: Pharynx: Oropharynx is clear. Eyes: Conjunctiva/sclera: Conjunctivae normal. Cardiovascular: Rate and Rhythm: Normal rate. Heart sounds: No murmur heard. Pulmonary: Effort: Pulmonary effort is normal. No respiratory distress. Breath sounds: No wheezing or rales. Abdominal: General: Bowel sounds are normal. There is no distension. Tenderness: There is no abdominal tenderness. There is no guarding. Comments: Thin appearance Musculoskeletal: General: Signs of injury present. No tenderness. Comments: left sided cast above elbow Skin: General: Skin is warm. Capillary Refill: Capillary refill takes less than 2 seconds. Findings: Bruising (Bilateral upper and lower extremity) present. Comments: Hip scars bilaterally Neurological: General: No focal deficit present. Mental Status: She is alert and oriented to person, place, and time. Medications: Scheduled PRN Scheduled Meds[2] PRN Meds[3] Continuous Continuous Meds[4] Assessment Data: (CAT1) Reviewed 3 or more notes from different specialty or health system (each=1). (CAT1) Reviewed 3 or more labs/studies ordered by another provider not previously counted (each=1, panels count as 1). (LOW: 2x CAT1 or independent historian MOD: 3x CAT1 or 1x CAT3 EXTENSIVE: 3x CAT1 and 1x CAT3) Acute, acute on chronic, unstable/uncontrolled chronic problems/diagnoses: 8-year-old female with history of COPD presents with worsening weight loss, failure to thrive, and increased shortness of breath. Failure to thrive with severe malnourishment Assessment: Patient has experienced significant unintentional weight loss of 40 pounds, with current weight at 89 pounds. She reports increased anorexia and no desire to eat or drink. Lab results show low albumin (3) and low folate (5.2), indicative of malnutrition. This condition is likely exacerbated by her chronic respiratory failure and severe emphysema. Plan: - Palliative care consultation for management of failure to thrive and debility - METAL SMELTER evaluation: recommended regular solids with thin liquids, sitting upright, slow rate of intake, and small bites - group home's has been denied - will need appeal. - Geriatrics involvement for assisted living waiver exploration - PT and OT referrals Chronic respiratory failure with severe emphysema Polymicrobial pneumonia including Pseudomonas Moraxella in the Streptococcus, suspect aspiration Hx of h eavy tobacco abuse Assessment: Patient has a history of COPD with chronic shortness of breath on exertion. She arrived on 3 liters of oxygen, which is her baseline. Last PFT shows FEV1 of 11.4% and 50% predicted. CT chest shows severe pulmonary emphysema and new round-shaped septal spots, opacity in left lower lobe, possibly indicating pneumonia or lung infarction. Neoplasm is considered unlikely. Plan: - Continue oxygen therapy at 3 liters - CT chest, abdomen, and pelvis - new wedge- shaped subpleural airspace opacity in left lower lobe, - Pulmonology consultation - will continue antibiotics until 7 day duration until 08/07 - Continue bronchodilator therapy: Dulera and Spiriva with tapering dosing - Incentive spirometry - Outpatient pulmonary function testing Chronic pain (left elbow fracture) L-supracondylar humerus fracture related to severe osteoporosis Assessment: Patient reports left elbow pain since a fall in April. Imaging confirms a left elbow fracture several months old. [facility] was consulted. Plan: - Continue Tylenol 650 mg BID - Morphine 15 mg Q4 hours for pain and shortness of breath - Discontinued Flexeril if possible and if need to restart a muscle relax use tizanidine instead Anxiety and depression Assessment: Patient is on multiple psychotropic medications for anxiety and depression management. Plan: - Continue: - Wellbutrin 150 mg PO daily - Effexor 150 mg daily - weaned off and discontinued during admission - Buspirone 15 mg BID - Mirtazapine 15 mg at bedtime - Adjust: - Decrease paroxetine from 40 mg to 30 mg daily - Change Seroquel from 200 mg to 50 mg at bedtime - Discontinue: - Sudafed - Consider slow outpatient weaning of gabapentin - Monitor for improvement in appetite with medication adjustments Severe malnutrition with suspected pulmonary cachexia Plan As a result of the above findings & factors, the following mgmt was pursued: - 08/04- VS, labs reviewed, P2P completed for patient - unable to get approved -still denied as they stated her contact rominad assistance - showing she is to independent for SNF placement - 08/05- VS, labs reviewed, continue antibiotics until 08/07, discussed with antibiotic stewardship, will need to Appeal P2P, vs considering trying to get AL - 08/06 - VS, labs reviewed, last day of antibiotic therapy, will need to wait on appeal for SNF placement, daugther cannot manage helping patient at home and she will need placement in the future. - am labs, replace lytes prn - PT/OT/CM/SW - delirium precautions: increase activity and limit nighttime disturbances - DVT prophylaxis: enoxaparin and encourage ambulation Complexity: Chronic illness with severe exacerbation, progression, or side effect of tx (HIGH). Risk: Admission to hospital-level care was considered or occurred (HIGH). Advance Directive: DNR-CCA Anticipated Discharge - Date - - Location - SNF vs home with home health - Pending the following - final placement Total time spent (which include face to face and non face to face encounters) : 38 minutes Toxic drug monitoring/narrow therapeutic index drug monitoring : # Drug name : lovenox # Route administered : SQ # Method of monitoring : Monitor for bleeding Extended Emergency Contact Information Primary Emergency Contact: Karishma Deluca Address: [address] [place] [address] Dr [place], [address] of [facility] Mobile Relation: Daughter Secondary Emergency Contact: Jace Deluca Mobile Relation: Son Rena Benz MD [facility] [1] Past Medical History: Diagnosis Date Abnormal stress test Acute exacerbation of chronic obstructive pulmonary disease (HCC) 04/12/2018 Allergic rhinitis Arthritis Asthma Bronchitis Cancer (CMS/HCC) (HCC) skin Cervical cancer (HCC) Chest pain COPD (chronic obstructive pulmonary disease) (HCC) USE OXYGEN 3 L AT NIGHT DDD (degenerative disc disease), cervical Defect, retina, with detachment right DJD (degenerative joint disease), lumbar Emphysema lung (HCC) Former smoker Hematuria SCHEDULED FOR THE PROCEDURE /SURGERY ON 02/11/2017 Hypokalemia Lung nodules Near syncope 09/19/2023 Osteoporosis Palpitations Pneumonia Recurrent major depression (HCC) Sciatica Thoracic compression fracture (HCC) Vitamin D deficiency [2] acetaminophen, 650 mg, Oral, BID albuterol, 2.5 mg, Nebulization, BID aspirin, 81 mg, Oral, Daily buPROPion XL, 150 mg, Oral, Daily busPIRone, 15 mg, Oral, BID calcitonin, 50 Units, IntraMUSCular, Daily cefepime, 2,000 mg, IntraVENous, q8h cetirizine, 5 mg, Oral, Daily enoxaparin, 30 mg, SubCUTAneous, Daily fluticasone, 2 spray, Each Nostril, Daily melatonin, 3 mg, Oral, Nightly mirtazapine, 15 mg, Oral, Nightly mometasone-formoterol, 2 puff, Inhalation, BID montelukast, 10 mg, Oral, Nightly PARoxetine, 30 mg, Oral, q AM predniSONE, 20 mg, Oral, Daily Followed by [START ON 08/07/2024] predniSONE, 10 mg, Oral, Daily tiotropium, 2 puff, Inhalation, Daily [3] PRN medications: acetaminophen OR acetaminophen, albuterol, iopamidol, morphine, naloxone, ondansetron ODT OR ondansetron, polyethylene glycol (PEG) 3350, QUEtiapine, sodium chloride [4] Images from the original note were not included. PHYSICAL THERAPY [facility] Treatment Note Name/MRN: Gonzalo Deluca ([id number]) Date of : 1955 Age: 68 y.o. Room/Bed: B2-254/[facility] B Visit #: 4 out of 7 Discharge Recommendation: Snf Facility Other: TBD at next level of care, pt owns a cane Assessment 68 y/o female referred from PCP office with weight loss, SOB and failure to thrive. Pt also c/o she fell in apr, she had left elbow pain, and her armed turned black for weeks back then and was swollen since then. Current x-rays show a supracondylar fracture. Dr. Gresham plans to put a long-arm cast on her this admission and requests L UE NWB. Pt seen on 4L for PT this date, 6L for ambulation, SpO2 87%-94% during mobility with delayed drop post mobility. Pt is mod I for bed mobility, supervision for sitting balance, CGA for sit <> stand transfer with quad cane, and CGA for ambulation 10 feet x 1 trial, limited by decreased SpO2. RPD decreased from 3-4/10 at start of session to 2-3/10 post session. Pt would benefit from continued acute PT services and SNF to improve endurance, balance, LE strength, and independence with mobility. Subjective Cleared by RN for PT treatment. Pt received to PT 4 L via NC, increased per RN discussion to tank O2 at 6L for ambulation trial. Pt pleasant and cooperative and agreeable to PT treatment. Vitals: Pre: SpO2 90-94% on 4L, RPD 3-4/10 During: SpO2 87-91% on 4L, RPD 3/10, post ambulation 2-3/10, desat to 87% on 6L post ambulation trial Post: SpO2 93% on 4L via NC Pain: "always" but pt didn't provide rating, or location Medical Precautions: No active isolations Proper PPE donned/doffed in accordance with facility standards. Fall Risk: Webb Fall Risk Score: 85 (Low Risk) Webb Fall Risk Score: 85 (High Risk) Precautions/Restrictions: Lines/Drains/Airways: 4L via NC, PIV Fall Precautions Overall Cognitive Status: WFL Overall Orientation Status: Oriented x4 Family/Caregiver Present: none Objective Bed Mobility Supine to sit: Modified Independent Sit to supine: Modified Independent Scooting: Supervision Transfers/Mobility Sit to stand: Contact Guard Stand to sit: Contact Guard X 3 trials, v/v and visual demo for paired breathing technique to improve ventilation / gas exchange and avoid breath holding, stand to SB quad cane. Device(s) used: Quad cane and small base and gait belt Ambulation Ambulation 1 Assistive device(s) used: Quad cane and small base Assist level: Contact Guard Distance (ft): 5 feet x 2 trials, 10 feet x 1 trial, seated rest between trials d/t decreased SpO2 to 87% Quality of gait: slow lauren, increased time in double stance, cues for paced breathing throughout, Spo2 monitored throughout, pt educated on RPD scale with ambulation Balance During Session: Posture: good Sitting - Static: Supervision Sitting - Dynamic: Supervision Standing - Static: Contact Guard, with unilateral UE support Standing - Dynamic: Contact Guard, with unilateral UE support Exercises Exercises Hip Flexion: seated EOB, 1 set 10 reps Knee Long Arc Quad: seated EOB, 1 set 10 reps Ankle Pumps: seated EOB, 1 set 10 reps Other exercises Other exercises?: Yes Other exercises 1: paired breathing with all LE exercises, pt educated on paired breathing with sit <> stand trasnfers and paced breathing with activity; visual demo and v/c for correct technqiue Plan Continue acute PT per plan of care. Safety/Education Safety Safety Devices in place: All fall risk precautions in place, call light within reach, left in bed, gait belt, patient at risk for falls, and no alarms engaged upon entry Restraints: No Education Education Given To: patient Education Provided: PT Role, PT Goals, Gait Training, Plan of Care, Home Exercise Program, Precautions, Transfer Training, Energy Conservation, Equipment, Fall Prevention Education, Benefits of Increasing Activity, Breathing Techniques, and paced breathing, paired breathing, RPD scale and goal range for mobility Education Method: Verbal and Printed Information Barriers to Learning: None Education Outcome: Verbalized Understanding and Continued Education Needed Outcome Measures AM-PAC AM-PAC Inpatient Mobility Raw Score (No Stairs) : 17 JH-HLM JH-HLM Score: Walked 10 steps or more (i.e. walked to restroom) Goals Patient Stated Goal: to improve walking Encounter Problems Encounter Problems (Active) Balance Patient will maintain dynamic standing balance for 5 minutes with modified independence in order to demonstrate decreased risk of falling. (Progressing) Start: 07/31/24 Expected End: 08/14/24 Exercise Patient will complete lower extremity exercises for 1-2 sets / 10 reps in order to improve strength and activity tolerance for mobility. (Not Addressed) Start: 07/31/24 Expected End: 08/14/24 Mobility Patient will ambulate 100 feet with modified independence and least restrictive device in order to improve safety and independence with mobility. (Progressing) Start: 07/31/24 Expected End: 08/14/24 Patient will ascend and descend 13 stairs with one railing and supervision in order to safely negotiate home. (Not Addressed) Start: 07/31/24 Expected End: 08/14/24 Safety Patient will recall/demonstrate weight bearing and/or ROM restrictions with all functional mobility in order to promote healing and safety with functional tasks. (Progressing) Start: 07/31/24 Expected End: 08/14/24 Transfers Patient will perform bed mobility with modified independence in order to improve independence and prepare for out of bed mobility. (Completed) Start: 07/31/24 Expected End: 08/14/24 Resolved: 08/03/24 Patient will complete functional transfers with least restrictive device with modified independence in order to prepare for ambulation. (Progressing) Start: 07/31/24 Expected End: 08/14/24 Therapy Time Individual Co-treatment Time In 1024 Time Out 1053 Minutes 29 Timed Code Treatment Minutes: 29 Minutes (1 ther act, 1 ther ex) Gracy Garza PT Images from the original note were not included. OCCUPATIONAL THERAPY [facility] Treatment Note Name/MRN: Gonzalo Deluca ([id number]) Date of : 1955 Age: 68 y.o. Room/Bed: [facility] B Visit #: 3 out of 6 Discharge Recommendation: Snf Facility Equipment Needed: No Assessment Pt tolerated session fair, continues to be limited by fatigue and SOB. Pt completed bed mobility with Mod I. She performed STS transfers, standing balance, and functional mobility with CGA. She demo instability throughout. Pt reports limited social support. Pt is progressing with POC but is still below baseline and is a high fall risk. Pt would benefit from continued OT to improve activity tolerance, balance, and strength needed for improved occupational performance. Pt is recommended for SNF upon planned discharge d/t poor endurance and fatigue with short distances. Subjective Pt supine in bed upon arrival, pleasant and agreeable. Per RN, pt okay to see. SpO2 monitored throughout. SpO2: 88% (lowest, with mobility) Pain: 0-10 pain scale: 5/10 Location: L elbow Medical Precautions: No active isolations Proper PPE donned/doffed in accordance with facility standards. Fall Risk: Webb Fall Risk Score: 85 (Low Risk) Webb Fall Risk Score: 85 (High Risk) Precautions/Restrictions: Braces or Orthoses: LUE long cast Left UE Weight Bearing: Non-Weight Bearing Lines/Drains/Airways: O2 Family/Caregiver Present: none Objective ADLs Pt declining participation in ADL tasks at this time. Bed Mobility Supine to sit: Modified Independent Sit to supine: Modified Independent HOB Elevated Use of bed rail(s) Pt edu on LUE NWB status prior to mobility with good understanding noted. Pt completed all aspects of bed mobility with use of bed features at Mod I. Pt able to maintain LUE NWB throughout. Denied dizziness with positional changes. Transfers/Mobility Sit to stand: Contact Guard Stand to sit: Contact Guard Sitting balance: Independent Standing balance: Contact Guard Functional mobility: Contact Guard Pt completed x2 STS from EOB without device at CGA. Pt edu on proper tech to maintain LUE NWB, demo good teachback. Pt performed functional mobility without use of device with CGA, she demo instability throughout and use of environmental supports for steadiness. She tolerated short functional household distance before requiring seated recovery period. Pt edu on breathing tech throughout mobility with fair carry over. Once seated pt able to focus on breathing tech and increased SpO2 to 92-94% on 4L, good teach back. Device(s) used: None Cognition - Safety judgement: decreased awareness of need for assistance WFL Plan Continue acute OT per plan of care. Safety/Education Safety Safety Devices in place: All fall risk precautions in place, call light within reach, left in bed, gait belt, patient at risk for falls, nurse notified, and no alarms engaged upon entry Restraints: No Education Education Given To: patient Education Provided: OT Role, Plan of Care, Precautions, Transfer Training, Energy Conservation, Fall Prevention Education, Discharge Recommendations, Benefits of Increasing Activity, and Breathing Techniques Education Method: Verbal, Demonstration, and Teach Back Barriers to Learning: None Education Outcome: Verbalized Understanding, Demonstrated Understanding, and Continued Education Needed AM-PAC AM-PAC Inpatient Daily Activity Raw Score: 18 ADL Inpatient CMS G-Code Modifier: CK Goals Patient Stated Goal: none stated at this time. Encounter Problems Encounter Problems (Active) Balance Patient will maintain dynamic standing balance for 3 minutes with modified independence in order to demonstrate decreased risk of falling. (Progressing) Start: 08/01/24 Expected End: 08/07/24 Dressings Lower Extremities Patient will dress lower body with mod I (Not Addressed) Start: 08/01/24 Expected End: 08/07/24 Mobility pt will perform functional mobility and transfers with Mod I (Progressing) Start: 08/01/24 Expected End: 08/07/24 OT Misc pt will use EC/breathing techniques to maintain Spo2 > 90% during functional activities (Progressing) Start: 08/01/24 Expected End: 08/07/24 Toileting Patient will complete toileting tasks at standard toilet with modified independence. (Not Addressed) Start: 08/01/24 Expected End: 08/07/24 Therapy Time Individual Co-treatment Time In 0932 Time Out 0952 Minutes 20 Timed Code Treatment Minutes: 20 Minutes (1 THER ACT) JANICE Diana Cosigned by Roopa More OT at 08/06/2024 7:53 AM EDT Images from the original note were not included. [facility], Pulmonary Medicine [address], [place] [address] Patient - Gonzalo Deluca, Age - 68 y.o. - 1955 Room Number - B2-254/B2-254 B Consulting - Rena Beverly MD Primary Care Physician [phone] Date of Admission - 07/30/2024 4:40 PM Hospital Day - 4 Chief Complaint Gonzalo Deluca is a 68 y.o. female who pulmonary is following for Emphysema/ lung density/CRF Interval History Continues to improve sitting on the bed no acute distress she is afebrile Oxygen saturation 94 percentile on 4 L a cannula HPI Gonzalo Deluca is a 68 y.o. female admitted for Weight loss failure to thrive Patient with a history of severe underlying emphysematous lung disease, chronic respiratory failure on home oxygen heavy tobacco use quit 6 years ago continues to vape lung nodules in the past thoracic compression fracture admitted with main complaint of losing weight almost 40 pounds in recent months poor appetite failure to thrive Underwent CT chest which did show severe emphysema Left lower lobe density, new in comparison to previous CAT scan Favor tiny lung nodule both lower lobes Patient having cough with phlegm however having difficulty coughing up the phlegm Denies any fever chills Rigor Shortness of breath more recently Denies any hemoptysis hematemesis melena hematuria Apparently not seeing any staff genetic counselor recently Was on Dulera Spiriva and rescue inhaler compliant with the medication Not on NIV No PFT available in [facility] All other systems reviewed Objective Vitals: BP 123/78 Pulse 78 Temp 36.7 C (98 F) (Temporal) Resp 16 Ht 5' 4" (1.626 m) Wt 89 lb 1.1 oz (40.4 kg) SpO2 94% BMI 15.29 kg/m Pulse Ox: SpO2 Av.4 % Min: 93 % Max: 95 % Supplemental O2: O2 Flow Rate (L/min): 4 L/min (decreased to 4L NC, 5L spo2 95%. Pt wears 3L at home.) I/O 24HR INTAKE/OUTPUT: Intake/Output Summary (Last 24 hours) at 08/05/2024 1029 Last data filed at 08/05/2024 0614 Gross per 24 hour Intake 240 ml Output -- Net 240 ml Exam General appearance: No distress appears comfortable on 4 L nasal cannula HEENT: Normocephalic, atraumatic. Pupils equil and round, External ear normal, conjunctivae normal, negative for scleral icterus. No congestion. Neck: ROM normal, supple, trachea midline. No lymphadenopathy Cardiovascular: Regular rate and rhythm. Heart sounds normal. Negative for murmur, friction rub or gallop. Pulmonary: Effort normal, no respiratory distress/conversational dyspnea Increased AP diameter of the chest Markedly decreased breath sound Few basilar rales No wheezing No pleural rub Abdomen: Soft, non distended, non tender, bowel sounds normal. No palpable masses. No Hepatomegaly Musculoskeletal: ROM normal, Negative for swelling, tenderness or deformity. Skin: Warm, dry. Skin color, texture, turgor normal. Negative for rashes or lesions. Extremities: No clubbing, cyanosis, or extremity edema Left upper extremity in splint Neurological: No focal deficits. Alert and oriented x 3. Cranial nerves II-XII are intact Lymphatics: No cervical or axillary lymphadenopathy Psychiatric: Mood, behavior, thought content normal. Cooperative with exam. Medications Current Medications Scheduled Meds[1] PRN Mediations PRN Meds[2] IV Drips/Infusions Continuous Meds[3] Labs CBC Results from last 7 days Lab Units 08/05/24 0214 WBC AUTO 10*3/uL 9.9 HEMOGLOBIN g/dL 12.0 HEMATOCRIT % 38.5 PLATELETS 10*3/uL 221 BMP: Results from last 7 days Lab Units 08/05/24 0214 08/04/24 0043 07/30/24 1729 SODIUM mmol/L 141 142 144 POTASSIUM mmol/L 4.3 4.2 5.0 CHLORIDE mmol/L 100 104 103 CO2 mmol/L 36* 32* 37* BUN mg/dL 25* 26* 16 CREATININE mg/dL 0.57 0.55* 0.63 GLUCOSE mg/dL 102 111 80* CALCIUM mg/dL 9.4 8.4* 8.8 ABG: LIVER PROFILE Results from last 7 days Lab Units 07/30/24 1729 ALK PHOS U/L 97 BILIRUBIN TOTAL mg/dL 0.2 BILIRUBIN DIRECT mg/dL 0.1 PROTEIN TOTAL g/dL 6.5 ALT U/L 10 AST U/L 21 INR PTT No results found for: "PTT" Cultures Radiology Exam Date/Time: 07/31/2024 15:25 Procedure: CT CHEST ABDOMEN PELVIS W CONTRAST Ordering Provider: SERNA DANIEL Reason For Exam: unexplained weight loss EXAMINATION: CT CHEST ABDOMEN PELVIS W CONTRAST CLINICAL HISTORY: unexplained weight loss COMPARISON: 10/16/2023 TECHNIQUE: Contiguous axial images were obtained through the chest abdomen and pelvis from the level of the thoracic inlet through the pubic symphysis following administration of intravenous contrast. Dose reduction was employed with automated exposure control. FINDINGS: Cardiovasculature: Heart size is normal. Left upper extremity PICC line with tip in the SVC. Normal caliber thoracic aorta. No central pulmonary emboli. Mediastinum/Pericardium: Small amount of pericardial fluid, similar to the prior. Lymph Nodes: No thoracic lymphadenopathy is evident Pleura: Unremarkable Central Airways: No airway nodules. Lungs: Severe diffuse emphysematous changes bilaterally. There is a new peripheral wedge-shaped airspace opacity posteriorly in the left lower lobe. A few tiny centrilobular nodules are also noted in both lower lobes. No other sites of airspace consolidation. Hepatobiliary: No suspicious hepatic lesions. The gallbladder is contracted. Pancreas: Unremarkable Spleen: Unremarkable Adrenal Glands: Unremarkable Kidneys, ureters, and bladder: No calculi or hydroureteronephrosis. Abdominal and pelvic vasculature: Unremarkable GI tract: No evidence of obstruction. The appendix is not visualized. Peritoneum and retroperitoneum: No free fluid or free air is noted. Lymph Nodes: No abdominal or pelvic lymphadenopathy is evident. Pelvis: Unremarkable Visualized musculoskeletal structures: Remote ORIF of the left hip. Chronic osteoporotic compression fractures of the T6-T9, T11, and L2-L4 vertebral bodies. No destructive bone lesion or acute fractures. IMPRESSION: 1. New wedge-shaped subpleural airspace opacity in the left lower lobe is most likely either focal pneumonia or a lung infarct. Neoplasm is unlikely, but follow-up to resolution is recommended. 2. No acute findings in the abdomen or pelvis. 3. Multiple chronic osteoporotic compression fractures in the thoracic and lumbar spine. 4. Severe pulmonary emphysema. 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 Patient emphysema clinically as well as radiologically appears to be severe no current PFT available on [facility] 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 in weight loss Left lower lobe density pneumonia versus atelectasis favor later Sputum culture Incentive spirometry Will need follow-up CT chest short-term for left lower lobe density Continue bronchodilator therapy patient was on Dulera and Spiriva Tapering dose of steroid we are going slow tapering dose on prednisone that will also help her appetite Complete pulmonary function test as an outpatient Follow-up with pulmonary office postdischarge Polymicrobial lower respiratory infection on cefepime Sputum culture growing Pseudomonas Continue tapering dose of prednisone Wean off FiO2 keep saturation 90 to 92% Advance Directive: DNR-CCA Case discussed with nurse and patient. Questions and concerns addressed. Portions of the information within this encounter were entered using an electronic dictation system. Best attempts were made to edit/proofread the information prior to note completion. Despite the review of information, some errors may remain. If there are questions related to the information contained within the note please contact the signing provider directly. [1] acetaminophen, 650 mg, Oral, BID albuterol, 2.5 mg, Nebulization, BID aspirin, 81 mg, Oral, Daily buPROPion XL, 150 mg, Oral, Daily busPIRone, 15 mg, Oral, BID calcitonin, 50 Units, IntraMUSCular, Daily cefepime, 2,000 mg, IntraVENous, q12h cetirizine, 5 mg, Oral, Daily enoxaparin, 30 mg, SubCUTAneous, Daily fluticasone, 2 spray, Each Nostril, Daily melatonin, 3 mg, Oral, Nightly mirtazapine, 15 mg, Oral, Nightly mometasone-formoterol, 2 puff, Inhalation, BID montelukast, 10 mg, Oral, Nightly PARoxetine, 30 mg, Oral, q AM predniSONE, 20 mg, Oral, Daily Followed by [START ON 08/07/2024] predniSONE, 10 mg, Oral, Daily tiotropium, 2 puff, Inhalation, Daily [2] PRN medications: acetaminophen OR acetaminophen, albuterol, iopamidol, morphine, naloxone, ondansetron ODT OR ondansetron, polyethylene glycol (PEG) 3350, QUEtiapine, sodium chloride [3] [4] Patient Active Problem List Diagnosis Poor venous access Other specified complication of vascular prosthetic devices, implants and grafts, initial encounter ([facility]) Chronic pain COPD (chronic obstructive pulmonary disease) ([facility]) DDD (degenerative disc disease), cervical Leukocytosis Malignant neoplasm of exocervix (HCC) Recurrent major depression (HCC) Pulmonary nodule S/P hysterectomy Sciatica Shortness of breath Supplemental oxygen dependent PNA (pneumonia) H/O: CVA (cerebrovascular accident) Former smoker Nondisplaced fracture of neck of left femur ([facility]) Lumbar compression fracture, closed, initial encounter ([facility]) Severe malnutrition (CMS/HCC) ([facility]) Falls frequently Unintentional weight loss Debility PFO (patent foramen ovale) Adult failure to thrive Anxiety and depression Cognitive deficits At risk for delirium Hospitalist Progress Note 08/05/2024 Subjective: Admit Date: 07/30/2024 PCP: HERMINIA CASE MD Room#: B2-254/[id number] B BRIEF HOSPITAL COURSE: 68-year-old female with a history of COPD who presents to the emergency department with worsening weight loss, failure to thrive, and increased shortness of breath. The patient reports significant weight loss, stating her weight has decreased to 89 pounds, with a total loss of 40 pounds. She describes increased anorexia, expressing no desire to eat or drink and feeling "just not hungry." The patient's shortness of breath, which is chronic due to her COPD, has worsened. She arrived at the emergency department requiring 3 liters of oxygen. Her baseline respiratory status includes chronic respiratory failure, requiring 3 liters of oxygen, and severe emphysema. In April, the patient experienced a fall resulting in left elbow pain, which has persisted since then. A fracture was identified on imaging, described as "several months old." The patient's condition has significantly impacted her overall health and functioning, leading to a failure to thrive diagnosis. Her severe malnourishment and unintentional weight loss have contributed to her debilitated state. The combination of her respiratory issues, chronic pain, and nutritional deficits has led to a decline in her overall health status. Recent healthcare interactions include consultations with [facility], palliative care, pulmonology, orthopedic surgery, geriatrics, and speech-language pathology. These consultations were initiated to address various aspects of her complex medical condition. VS on arrival HR 91, RR 18, BP 114/79, Spow 90 % on 3 liters. EKG showed heart rate of 95, normal sinus rhythm. Labs: Hemoglobin 11.2, MCP 103, glucose 80, albumin 3, folate low at 5.2. No WC in urine. Imaging: Left elbow fracture several months old. CT-CAP showed new red shaped sepulchral spats, opacity in left lower lobe, likely pneumonia or lung infarction. Multiple chronic osteoporotic compression fractures in thoracic and lumbar spine. Pulmonology was consulted for triple bacterial pneumonia in which she was treated, for Pseudomona, Moraxella and Streptocccus, on top of her severe pneumonia, with increased oxygen requirements on top of her chronic respiratory failure. Interval History: Patient condition has significnatly improved and she is able to walk more, still feels difficulties with transiton from bed to standing and back down, gets fired when walking the hallways. No fever or chills. No cough or congestion - it has all significant ly improved. She is going appeal the insurance to try to get her in the SNF Adult diet Regular 24HR INTAKE/OUTPUT: Intake/Output Summary (Last 24 hours) at 08/05/2024 1435 Last data filed at 08/05/2024 0736 Gross per 24 hour Intake 480 ml Output -- Net 480 ml Past Medical History: Medical History[1] LABS: CBC: Recent Labs 08/04/24 0043 08/05/24 0214 WBC 8.2 9.9 RBC 3.23* 3.80 HGB 10.2* 12.0 HCT 32.5* 38.5 MCV 100.6* 101.3* RDW 13.8 13.9 PLT 164 221 BMP: Recent Labs 08/04/24 0043 08/05/24 0214 NA 142 141 K 4.2 4.3 CL 104 100 CO2 32* 36* BUN 26* 25* CREATININE 0.55* 0.57 GLUCOSE 111 102 CALCIUM 8.4* 9.4 ANIONGAP 6 5 LIVER PROFILE:No results for input(s): "AST", "ALT", "BILITOT", "ALKPHOS", "PROT" in the last 72 hours. No lab exists for component: LABALBU PT/INR: No results for input(s): "PROTIME", "INR" in the last 72 hours. CARDIAC ENZYMES: No results for input(s): "TROPONINI" in the last 72 hours. Procalcitonin: No results found for: "PROCAL" COVID-19 PCR: No results for input(s): "COVID19" in the last 72 hours. Objective: Vitals: BP 123/78 Pulse 78 Temp 36.7 C (98 F) (Temporal) Resp 16 Ht 5' 4" (1.626 m) Wt 89 lb 1.1 oz (40.4 kg) SpO2 94% BMI 15.29 kg/m Pulse Ox: SpO2 Av.4 % Min: 93 % Max: 95 % Supplemental O2: O2 Flow Rate (L/min): 4 L/min (decreased to 4L NC, 5L spo2 95%. Pt wears 3L at home.) Physical Exam Vitals and nursing note reviewed. HENT: Mouth/Throat: Pharynx: Oropharynx is clear. Eyes: Conjunctiva/sclera: Conjunctivae normal. Cardiovascular: Rate and Rhythm: Normal rate. Heart sounds: No murmur heard. Pulmonary: Effort: Pulmonary effort is normal. No respiratory distress. Breath sounds: No wheezing or rales. Abdominal: General: Bowel sounds are normal. There is no distension. Tenderness: There is no abdominal tenderness. There is no guarding. Comments: Thin appearance Musculoskeletal: General: Tenderness and signs of injury present. Comments: left sided cast above elbow Skin: General: Skin is warm. Capillary Refill: Capillary refill takes less than 2 seconds. Findings: Bruising (Bilateral upper and lower extremity) present. Comments: Hip scars bilaterally Neurological: General: No focal deficit present. Mental Status: She is alert and oriented to person, place, and time. Medications: Scheduled PRN Scheduled Meds[2] PRN Meds[3] Continuous Continuous Meds[4] Assessment Data: (CAT1) Reviewed 3 or more notes from different specialty or health system (each=1). (CAT1) Reviewed 3 or more labs/studies ordered by another provider not previously counted (each=1, panels count as 1). (LOW: 2x CAT1 or independent historian MOD: 3x CAT1 or 1x CAT3 EXTENSIVE: 3x CAT1 and 1x CAT3) Acute, acute on chronic, unstable/uncontrolled chronic problems/diagnoses: 8-year-old female with history of COPD presents with worsening weight loss, failure to thrive, and increased shortness of breath. Failure to thrive with severe malnourishment Assessment: Patient has experienced significant unintentional weight loss of 40 pounds, with current weight at 89 pounds. She reports increased anorexia and no desire to eat or drink. Lab results show low albumin (3) and low folate (5.2), indicative of malnutrition. This condition is likely exacerbated by her chronic respiratory failure and severe emphysema. Plan: - Palliative care consultation for management of failure to thrive and debility - METAL SMELTER evaluation: recommended regular solids with thin liquids, sitting upright, slow rate of intake, and small bites - Consider [facility] facility placement for comprehensive care - Geriatrics involvement for assisted living waiver exploration Chronic respiratory failure with severe emphysema Polymicrobial pneumonia including Pseudomonas Moraxella in the Streptococcus, suspect aspiration Hx of h eavy tobacco abuse Assessment: Patient has a history of COPD with chronic shortness of breath on exertion. She arrived on 3 liters of oxygen, which is her baseline. Last PFT shows FEV1 of 11.4% and 50% predicted. CT chest shows severe pulmonary emphysema and new round-shaped septal spots, opacity in left lower lobe, possibly indicating pneumonia or lung infarction. Neoplasm is considered unlikely. Plan: - Continue oxygen therapy at 3 liters - Pulmonology consultation - Follow-up CT chest, abdomen, and pelvis - new wedge- shaped subpleural airspace opacity in left lower lobe, - will continue antibiotics until 7 day duration until 08/07 - Continue bronchodilator therapy: Dulera and Spiriva with tapering dosing - Incentive spirometry - Outpatient pulmonary function testing - PT and OT referrals Chronic pain (left elbow fracture) Assessment: Patient reports left elbow pain since a fall in April. Imaging confirms a left elbow fracture several months old. [facility] was consulted. Plan: - Orthopedic surgeon to apply LAC tomorrow - Continue Tylenol 650 mg BID - Rotative morphine 7.5 mg Q4 hours for pain and shortness of breath - Consider discontinuing Flexeril if possible - discontinued and if need to start due tizanidine instead - Discontinue oxycodone-acetaminophen L-supracondylar humerus fracture related to severe osteoporosis Anxiety and depression Assessment: Patient is on multiple psychotropic medications for anxiety and depression management. Plan: - Continue: - Wellbutrin (dose not specified) - Effexor 150 mg daily (recommend weaning outpatient) - Buspirone 15 mg BID - Mirtazapine 15 mg at bedtime - Adjust: - Decrease paroxetine from 40 mg to 30 mg daily - Change Seroquel from 200 mg to 50 mg at bedtime - Discontinue: - Sudafed - Consider slow outpatient weaning of gabapentin - Monitor for improvement in appetite with medication adjustments Severe malnutrition with suspected pulmonary cachexia Plan As a result of the above findings & factors, the following mgmt was pursued: - 08/04- VS, labs reviewed, P2P completed for patient - unable to get approved -still denied as they stated her contact emiliano assistance - showing she is to independent for SNF placement - 08/05- VS, labs reviewed, continue antibiotics until 08/07, discussed with antibiotic stewardship, will need to Appeal P2P, vs considering trying to get AL - am labs, replace lytes prn - PT/OT/CM/SW - delirium precautions: increase activity and limit nighttime disturbances - DVT prophylaxis: enoxaparin and encourage ambulation Complexity: Chronic illness with severe exacerbation, progression, or side effect of tx (HIGH). Risk: Admission to hospital-level care was considered or occurred (HIGH). Advance Directive: DNR-CCA Anticipated Discharge - Date - - Location - SNF vs home with home health - Pending the following - final placement Total time spent (which include face to face and non face to face encounters) : 38 minutes Toxic drug monitoring/narrow therapeutic index drug monitoring : # Drug name : lovenox # Route administered : SQ # Method of monitoring : Monitor for bleeding Extended Emergency Contact Information Primary Emergency Contact: Karishma Deluca Address: [address] [place] [address] [place] [address] [facility] Mobile Relation: Daughter Secondary Emergency Contact: Jace Deluca Mobile Relation: Darshan Beverly MD Division of Hospitalist Medicine [employer] [1] Past Medical History: Diagnosis Date Abnormal stress test Acute exacerbation of chronic obstructive pulmonary disease (HCC) 04/12/2018 Allergic rhinitis Arthritis Asthma Bronchitis Cancer (CMS/HCC) (HCC) skin Cervical cancer (HCC) Chest pain COPD (chronic obstructive pulmonary disease) (HCC) USE OXYGEN 3 L AT NIGHT DDD (degenerative disc disease), cervical Defect, retina, with detachment right DJD (degenerative joint disease), lumbar Emphysema lung (HCC) Former smoker Hematuria SCHEDULED FOR THE PROCEDURE /SURGERY ON 02/11/2017 Hypokalemia Lung nodules Near syncope 09/19/2023 Osteoporosis Palpitations Pneumonia Recurrent major depression (HCC) Sciatica Thoracic compression fracture (HCC) Vitamin D deficiency [2] acetaminophen, 650 mg, Oral, BID albuterol, 2.5 mg, Nebulization, BID aspirin, 81 mg, Oral, Daily buPROPion XL, 150 mg, Oral, Daily busPIRone, 15 mg, Oral, BID calcitonin, 50 Units, IntraMUSCular, Daily cefepime, 2,000 mg, IntraVENous, q12h cetirizine, 5 mg, Oral, Daily enoxaparin, 30 mg, SubCUTAneous, Daily fluticasone, 2 spray, Each Nostril, Daily melatonin, 3 mg, Oral, Nightly mirtazapine, 15 mg, Oral, Nightly mometasone-formoterol, 2 puff, Inhalation, BID montelukast, 10 mg, Oral, Nightly PARoxetine, 30 mg, Oral, q AM predniSONE, 20 mg, Oral, Daily Followed by [START ON 08/07/2024] predniSONE, 10 mg, Oral, Daily tiotropium, 2 puff, Inhalation, Daily [3] PRN medications: acetaminophen OR acetaminophen, albuterol, iopamidol, morphine, naloxone, ondansetron ODT OR ondansetron, polyethylene glycol (PEG) 3350, QUEtiapine, sodium chloride [4] Images from the original note were not included. [facility] [place] [address] [place] [address] [id number] Patient - Gonzalo Deluca, Age - 68 y.o. - 1955 Room Number - [id number]/[id number] B Consulting - Rena Beverly MD Primary Care Physician - HERMINIA CASE MD [facility] # - [id number] Date of Admission - 07/30/2024 4:40 PM Hospital Day - 3 Chief Complaint Gonzalo Deluca is a 68 y.o. female who pulmonary is following for Emphysema/ lung density/CRF Interval History Feeling better she is awake and alert currently on 3.5 L [place] saturation 91% Appetite improving Sputum culture many Pseudomonas aeruginosa, final cultures pending Currently on cefepime HPI Gonzalo Deluca is a 68 y.o. female admitted for Weight loss failure to thrive Patient with a history of severe underlying emphysematous lung disease, chronic respiratory failure on home oxygen heavy tobacco use quit 6 years ago continues to vape lung nodules in the past thoracic compression fracture admitted with main complaint of losing weight almost 40 pounds in recent months poor appetite failure to thrive Underwent CT chest which did show severe emphysema Left lower lobe density, new in comparison to previous CAT scan Favor tiny lung nodule both lower lobes Patient having cough with phlegm however having difficulty coughing up the phlegm Denies any fever chills Rigor Shortness of breath more recently Denies any hemoptysis hematemesis melena hematuria Apparently not seeing any staff genetic counselor recently Was on Dulera Spiriva and rescue inhaler compliant with the medication Not on NIV No PFT available in [facility] All other systems reviewed Objective Vitals: BP 127/72 Pulse 85 Temp 36.3 C (97.3 F) (Temporal) Resp 18 Ht 5' 4" (1.626 m) Wt 89 lb 1.1 oz (40.4 kg) SpO2 91% BMI 15.29 kg/m Pulse Ox: SpO2 Av.8 % Min: 91 % Max: 94 % Supplemental O2: O2 Flow Rate (L/min): 3.5 L/min I/O 24HR INTAKE/OUTPUT: Intake/Output Summary (Last 24 hours) at 08/04/2024 1121 Last data filed at 08/04/2024 0938 Gross per 24 hour Intake 1146 ml Output 400 ml Net 746 ml Exam General appearance: Sitting on the bed no acute distress, afebrile HEENT: Normocephalic, atraumatic. Pupils equil and round, External ear normal, conjunctivae normal, negative for scleral icterus. No congestion. Neck: ROM normal, supple, trachea midline. No lymphadenopathy Cardiovascular: Regular rate and rhythm. Heart sounds normal. Negative for murmur, friction rub or gallop. Pulmonary: Effort normal, no respiratory distress/conversational dyspnea Increased AP diameter of the chest Markedly decreased breath sound Few basilar rales No wheezing No pleural rub Abdomen: Soft, non distended, non tender, bowel sounds normal. No palpable masses. No Hepatomegaly Musculoskeletal: ROM normal, Negative for swelling, tenderness or deformity. Skin: Warm, dry. Skin color, texture, turgor normal. Negative for rashes or lesions. Extremities: No clubbing, cyanosis, or extremity edema Left upper extremity in splint Neurological: No focal deficits. Alert and oriented x 3. Cranial nerves II-XII are intact Lymphatics: No cervical or axillary lymphadenopathy Psychiatric: Mood, behavior, thought content normal. Cooperative with exam. Medications Current Medications Scheduled Meds[1] PRN Mediations PRN Meds[2] IV Drips/Infusions Continuous Meds[3] Labs CBC Results from last 7 days Lab Units 08/04/24 0043 WBC AUTO 10*3/uL 8.2 HEMOGLOBIN g/dL 10.2* HEMATOCRIT % 32.5* PLATELETS 10*3/uL 164 BMP: Results from last 7 days Lab Units 08/04/24 0043 07/30/24 1729 SODIUM mmol/L 142 144 POTASSIUM mmol/L 4.2 5.0 CHLORIDE mmol/L 104 103 CO2 mmol/L 32* 37* BUN mg/dL 26* 16 CREATININE mg/dL 0.55* 0.63 GLUCOSE mg/dL 111 80* CALCIUM mg/dL 8.4* 8.8 ABG: LIVER PROFILE Results from last 7 days Lab Units 07/30/24 1729 ALK PHOS U/L 97 BILIRUBIN TOTAL mg/dL 0.2 BILIRUBIN DIRECT mg/dL 0.1 PROTEIN TOTAL g/dL 6.5 ALT U/L 10 AST U/L 21 INR PTT No results found for: "PTT" Cultures Radiology Exam Date/Time: 07/31/2024 15:25 Procedure: CT CHEST ABDOMEN PELVIS W CONTRAST Ordering Provider: SERNA DANIEL Reason For Exam: unexplained weight loss EXAMINATION: CT CHEST ABDOMEN PELVIS W CONTRAST CLINICAL HISTORY: unexplained weight loss COMPARISON: 10/16/2023 TECHNIQUE: Contiguous axial images were obtained through the chest abdomen and pelvis from the level of the thoracic inlet through the pubic symphysis following administration of intravenous contrast. Dose reduction was employed with automated exposure control. FINDINGS: Cardiovasculature: Heart size is normal. Left upper extremity PICC line with tip in the SVC. Normal caliber thoracic aorta. No central pulmonary emboli. Mediastinum/Pericardium: Small amount of pericardial fluid, similar to the prior. Lymph Nodes: No thoracic lymphadenopathy is evident Pleura: Unremarkable Central Airways: No airway nodules. Lungs: Severe diffuse emphysematous changes bilaterally. There is a new peripheral wedge-shaped airspace opacity posteriorly in the left lower lobe. A few tiny centrilobular nodules are also noted in both lower lobes. No other sites of airspace consolidation. Hepatobiliary: No suspicious hepatic lesions. The gallbladder is contracted. Pancreas: Unremarkable Spleen: Unremarkable Adrenal Glands: Unremarkable Kidneys, ureters, and bladder: No calculi or hydroureteronephrosis. Abdominal and pelvic vasculature: Unremarkable GI tract: No evidence of obstruction. The appendix is not visualized. Peritoneum and retroperitoneum: No free fluid or free air is noted. Lymph Nodes: No abdominal or pelvic lymphadenopathy is evident. Pelvis: Unremarkable Visualized musculoskeletal structures: Remote ORIF of the left hip. Chronic osteoporotic compression fractures of the T6-T9, T11, and L2-L4 vertebral bodies. No destructive bone lesion or acute fractures. IMPRESSION: 1. New wedge-shaped subpleural airspace opacity in the left lower lobe is most likely either focal pneumonia or a lung infarct. Neoplasm is unlikely, but follow-up to resolution is recommended. 2. No acute findings in the abdomen or pelvis. 3. Multiple chronic osteoporotic compression fractures in the thoracic and lumbar spine. 4. Severe pulmonary emphysema. 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 Patient emphysema clinically as well as radiologically appears to be severe no current PFT available on [facility] 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 in weight loss Left lower lobe density pneumonia versus atelectasis favor later Sputum culture Incentive spirometry Will need follow-up CT chest short-term for left lower lobe density Continue bronchodilator therapy patient was on Dulera and Spiriva Tapering dose of steroid we are going slow tapering dose on prednisone that will also help her appetite Complete pulmonary function test as an outpatient Follow-up with pulmonary office postdischarge Polymicrobial lower respiratory infection on cefepime Sputum culture growing Pseudomonas final report and sensitivity is still pending Advance Directive: DNR-CCA Case discussed with nurse and patient. Questions and concerns addressed. Portions of the information within this encounter were entered using an electronic dictation system. Best attempts were made to edit/proofread the information prior to note completion. Despite the review of information, some errors may remain. If there are questions related to the information contained within the note please contact the signing provider directly. [1] acetaminophen, 650 mg, Oral, BID albuterol, 2.5 mg, Nebulization, BID aspirin, 81 mg, Oral, Daily buPROPion XL, 150 mg, Oral, Daily busPIRone, 15 mg, Oral, BID calcitonin, 50 Units, IntraMUSCular, Daily cefepime, 2,000 mg, IntraVENous, q12h cetirizine, 5 mg, Oral, Daily enoxaparin, 30 mg, SubCUTAneous, Daily fluticasone, 2 spray, Each Nostril, Daily melatonin, 3 mg, Oral, Nightly mirtazapine, 15 mg, Oral, Nightly mometasone-formoterol, 2 puff, Inhalation, BID montelukast, 10 mg, Oral, Nightly PARoxetine, 30 mg, Oral, q AM [START ON 08/05/2024] predniSONE, 20 mg, Oral, Daily Followed by [START ON 08/07/2024] predniSONE, 10 mg, Oral, Daily tiotropium, 2 puff, Inhalation, Daily [2] PRN medications: acetaminophen OR acetaminophen, albuterol, iopamidol, morphine, naloxone, ondansetron ODT OR ondansetron, polyethylene glycol (PEG) 3350, QUEtiapine, sodium chloride [3] [4] Patient Active Problem List Diagnosis Poor venous access Other specified complication of vascular prosthetic devices, implants and grafts, initial encounter (HCC) Chronic pain COPD (chronic obstructive pulmonary disease) (HCC) DDD (degenerative disc disease), cervical Leukocytosis Malignant neoplasm of exocervix (HCC) Recurrent major depression (HCC) Pulmonary nodule S/P hysterectomy Sciatica Shortness of breath Supplemental oxygen dependent PNA (pneumonia) H/O: CVA (cerebrovascular accident) Former smoker Nondisplaced fracture of neck of left femur (HCC) Lumbar compression fracture, closed, initial encounter (HCC) Severe malnutrition (CMS/HCC) (HCC) Falls frequently Unintentional weight loss Debility PFO (patent foramen ovale) Adult failure to thrive Anxiety and depression Cognitive deficits At risk for delirium Hospitalist Progress Note 08/04/2024 Subjective: Admit Date: 07/30/2024 PCP: HERMINIA CASE MD Room#: B2-254/B2-254 B BRIEF HOSPITAL COURSE: 68-year-old female with a history of COPD who presents to the emergency department with worsening weight loss, failure to thrive, and increased shortness of breath. The patient reports significant weight loss, stating her weight has decreased to 89 pounds, with a total loss of 40 pounds. She describes increased anorexia, expressing no desire to eat or drink and feeling "just not hungry." The patient's shortness of breath, which is chronic due to her COPD, has worsened. She arrived at the emergency department requiring 3 liters of oxygen. Her baseline respiratory status includes chronic respiratory failure, requiring 3 liters of oxygen, and severe emphysema. In April, the patient experienced a fall resulting in left elbow pain, which has persisted since then. A fracture was identified on imaging, described as "several months old." The patient's condition has significantly impacted her overall health and functioning, leading to a failure to thrive diagnosis. Her severe malnourishment and unintentional weight loss have contributed to her debilitated state. The combination of her respiratory issues, chronic pain, and nutritional deficits has led to a decline in her overall health status. Recent healthcare interactions include consultations with [facility], palliative care, pulmonology, orthopedic surgery, geriatrics, and speech-language pathology. These consultations were initiated to address various aspects of her complex medical condition. VS on arrival HR 91, RR 18, BP 114/79, Spow 90 % on 3 liters. EKG showed heart rate of 95, normal sinus rhythm. Labs: Hemoglobin 11.2, MCP 103, glucose 80, albumin 3, folate low at 5.2. No WC in urine. Imaging: Left elbow fracture several months old. CT-CAP showed new red shaped sepulchral spats, opacity in left lower lobe, likely pneumonia or lung infarction. Multiple chronic osteoporotic compression fractures in thoracic and lumbar spine. Interval History: Patient seen in room - called for P2P which was denied and discussed that she will need to appeal the insurance decision as she will need more assistance. Has difficulties with getting things down with the arm fracture. NO fever or chills, cough or congestions. NO abdomen pain Adult diet Regular 24HR INTAKE/OUTPUT: Intake/Output Summary (Last 24 hours) at 08/04/2024 1006 Last data filed at 08/04/2024 0938 Gross per 24 hour Intake 1146 ml Output 400 ml Net 746 ml Past Medical History: Medical History[1] LABS: CBC: Recent Labs 08/04/24 0043 WBC 8.2 RBC 3.23* HGB 10.2* HCT 32.5* MCV 100.6* RDW 13.8 PLT 164 BMP: Recent Labs 08/04/24 0043 NA 142 K 4.2 CL 104 CO2 32* BUN 26* CREATININE 0.55* GLUCOSE 111 CALCIUM 8.4* ANIONGAP 6 LIVER PROFILE:No results for input(s): "AST", "ALT", "BILITOT", "ALKPHOS", "PROT" in the last 72 hours. No lab exists for component: LABALBU PT/INR: No results for input(s): "PROTIME", "INR" in the last 72 hours. CARDIAC ENZYMES: No results for input(s): "TROPONINI" in the last 72 hours. Procalcitonin: No results found for: "PROCAL" COVID-19 PCR: No results for input(s): "COVID19" in the last 72 hours. Objective: Vitals: BP 127/72 Pulse 85 Temp 36.3 C (97.3 F) (Temporal) Resp 18 Ht 5' 4" (1.626 m) Wt 89 lb 1.1 oz (40.4 kg) SpO2 91% BMI 15.29 kg/m Pulse Ox: SpO2 Av.8 % Min: 91 % Max: 94 % Supplemental O2: O2 Flow Rate (L/min): 3.5 L/min Physical Exam Vitals and nursing note reviewed. HENT: Mouth/Throat: Pharynx: Oropharynx is clear. Eyes: Conjunctiva/sclera: Conjunctivae normal. Cardiovascular: Rate and Rhythm: Normal rate. Heart sounds: No murmur heard. Pulmonary: Effort: Pulmonary effort is normal. No respiratory distress. Breath sounds: No wheezing or rales. Abdominal: General: Bowel sounds are normal. There is no distension. Tenderness: There is no abdominal tenderness. There is no guarding. Comments: Thin appearance Musculoskeletal: General: Tenderness and signs of injury present. Comments: left sided cast above elbow Skin: General: Skin is warm. Capillary Refill: Capillary refill takes less than 2 seconds. Findings: Bruising (Bilateral upper and lower extremity) present. Comments: Hip scars bilaterally Neurological: General: No focal deficit present. Mental Status: She is alert and oriented to person, place, and time. Medications: Scheduled PRN Scheduled Meds[2] PRN Meds[3] Continuous Continuous Meds[4] Assessment Data: (CAT1) Reviewed 3 or more notes from different specialty or health system (each=1). (CAT1) Reviewed 3 or more labs/studies ordered by another provider not previously counted (each=1, panels count as 1). (LOW: 2x CAT1 or independent historian MOD: 3x CAT1 or 1x CAT3 EXTENSIVE: 3x CAT1 and 1x CAT3) Acute, acute on chronic, unstable/uncontrolled chronic problems/diagnoses: 8-year-old female with history of COPD presents with worsening weight loss, failure to thrive, and increased shortness of breath. Failure to thrive with severe malnourishment Assessment: Patient has experienced significant unintentional weight loss of 40 pounds, with current weight at 89 pounds. She reports increased anorexia and no desire to eat or drink. Lab results show low albumin (3) and low folate (5.2), indicative of malnutrition. This condition is likely exacerbated by her chronic respiratory failure and severe emphysema. Plan: - Palliative care consultation for management of failure to thrive and debility - METAL SMELTER evaluation: recommended regular solids with thin liquids, sitting upright, slow rate of intake, and small bites - Consider usp facility placement for comprehensive care - Geriatrics involvement for assisted living waiver exploration Chronic respiratory failure with severe emphysema Assessment: Patient has a history of COPD with chronic shortness of breath on exertion. She arrived on 3 liters of oxygen, which is her baseline. Last PFT shows FEV1 of 11.4% and 50% predicted. CT chest shows severe pulmonary emphysema and new round-shaped septal spots, opacity in left lower lobe, possibly indicating pneumonia or lung infarction. Neoplasm is considered unlikely. Plan: - Continue oxygen therapy at 3 liters - Pulmonology consultation - Follow-up CT chest, abdomen, and pelvis - Continue bronchodilator therapy: Dulera and Spiriva with tapering dosing - Incentive spirometry - Outpatient pulmonary function testing - PT and OT referrals Chronic pain (left elbow fracture) Assessment: Patient reports left elbow pain since a fall in April. Imaging confirms a left elbow fracture several months old. [facility]. Plan: - Orthopedic surgeon to apply LAC tomorrow - Continue Tylenol 650 mg BID - Rotative morphine 7.5 mg Q4 hours for pain and shortness of breath - Consider discontinuing Flexeril if possible - discontinued and if need to start due tizanidine instead - Discontinue oxycodone-acetaminophen L-supracondylar humerus fracture related to severe osteoporosis Anxiety and depression Assessment: Patient is on multiple psychotropic medications for anxiety and depression management. Plan: - Continue: - Wellbutrin (dose not specified) - Effexor 150 mg daily (recommend weaning outpatient) - Buspirone 15 mg BID - Mirtazapine 15 mg at bedtime - Adjust: - Decrease paroxetine from 40 mg to 30 mg daily - Change Seroquel from 200 mg to 50 mg at bedtime - Discontinue: - Sudafed - Consider slow outpatient weaning of gabapentin - Monitor for improvement in appetite with medication adjustments Plan As a result of the above findings & factors, the following mgmt was pursued: - 08/04- VS, labs reviewed, P2P completed for patient - unable to get approved -still denied as they stated her contact emiliano assistance - showing she is to independent for SNF placement - am labs, replace lytes prn - PT/OT/CM/SW - delirium precautions: increase activity and limit nighttime disturbances - DVT prophylaxis: enoxaparin and encourage ambulation Complexity: Chronic illness with severe exacerbation, progression, or side effect of tx (HIGH). Risk: Admission to hospital-level care was considered or occurred (HIGH). Advance Directive: DNR-CCA Anticipated Discharge - Date - - Location - SNF vs home with home health - Pending the following - final placement Total time spent (which include face to face and non face to face encounters) : 58 minutes Toxic drug monitoring/narrow therapeutic index drug monitoring : # Drug name : lovenox # Route administered : SQ # Method of monitoring : Monitor for bleeding Extended Emergency Contact Information Primary Emergency Contact: Karishma Deluca Address: [address] [place] [address] [address] [id number] [facility] Mobile Relation: Daughter Secondary Emergency Contact: Jace Deluca Mobile Relation: Son Rena Tuyet Beverly MD Division of Hospitalist Medicine [facility] [1] Past Medical History: Diagnosis Date Abnormal stress test Acute exacerbation of chronic obstructive pulmonary disease (HCC) 04/12/2018 Allergic rhinitis Arthritis Asthma Bronchitis Cancer (CMS/HCC) (HCC) skin Cervical cancer (HCC) Chest pain COPD (chronic obstructive pulmonary disease) (HCC) USE OXYGEN 3 L AT NIGHT DDD (degenerative disc disease), cervical Defect, retina, with detachment right DJD (degenerative joint disease), lumbar Emphysema lung (HCC) Former smoker Hematuria SCHEDULED FOR THE PROCEDURE /SURGERY ON 02/11/2017 Hypokalemia Lung nodules Near syncope 09/19/2023 Osteoporosis Palpitations Pneumonia Recurrent major depression (HCC) Sciatica Thoracic compression fracture (HCC) Vitamin D deficiency [2] acetaminophen, 650 mg, Oral, BID albuterol, 2.5 mg, Nebulization, BID aspirin, 81 mg, Oral, Daily buPROPion XL, 150 mg, Oral, Daily busPIRone, 15 mg, Oral, BID calcitonin, 50 Units, IntraMUSCular, Daily cefepime, 2,000 mg, IntraVENous, q12h cetirizine, 5 mg, Oral, Daily enoxaparin, 30 mg, SubCUTAneous, Daily fluticasone, 2 spray, Each Nostril, Daily melatonin, 3 mg, Oral, Nightly mirtazapine, 15 mg, Oral, Nightly mometasone-formoterol, 2 puff, Inhalation, BID montelukast, 10 mg, Oral, Nightly PARoxetine, 30 mg, Oral, q AM [START ON 08/05/2024] predniSONE, 20 mg, Oral, Daily Followed by [START ON 08/07/2024] predniSONE, 10 mg, Oral, Daily tiotropium, 2 puff, Inhalation, Daily [3] PRN medications: acetaminophen OR acetaminophen, albuterol, iopamidol, morphine, naloxone, ondansetron ODT OR ondansetron, polyethylene glycol (PEG) 3350, QUEtiapine, sodium chloride [4] Images from the original note were not included. PHYSICAL THERAPY [facility] Name/MRN: Gonzalo Deluca ([id number]) Date: 08/04/2024 Chart review completed this date. PT attempted. Pt supine. Receiving breathing treatments during first attempt second attempt patient requesting RESISTANCE BRAZER return after eating breakfast. Pt tray had not yet arrived. Max encouragement provided with no success. Multiple options for therapy participation provided with no success. PT will continue to follow. Will re-attempt another time/date as schedule permits. Salina Miller PTA Cosigned by Gracy Garza PT at 08/04/2024 1:15 PM EDT Nutrition note -received consult for poor jeri <12 . Jeri is 20 -already being followed by LAILA. [facility] Respiratory Care Department Progress Note As part of the Respiratory Assessment Program (RAP), the following Respiratory Therapist evaluation has been completed, including a chart review and clinical/physical assessment. Respiratory Therapist RAP Evaluation Guideline Points 0 1 2 3 4 Points Strongly Consider History Factor No Pulmonary conditions Stable Pulmonary condition(s) Surgery or Intervention that may impact Pulmonary system (at risk) Surgery or Intervention that is impacting Pulmonary system Active Exacerbation of Pulmonary Condition 1 Respiratory Pattern Regular, RR= 12-18 ADRIAN or Increased RR= 19-24 Irregular, or RR= 25-30 SOB, talk in short sentences, or RR= 31-35 Severe SOB, accessory muscle use, one word answers, or RR>35 1 Aerosol Med(s), High Flow O2 Breath Sounds Clear Diminished in 1 lobe Diminished in <= 2 lobes Adventitious breath sounds Coarse crackles, Wheezes, or Diminished in >2 lobes 3 Aerosol Med(s), Bronchial Hygiene, Hyperinflation Cough & Sputum Strong cough, no secretion retention or production Weak cough, no secretion retention or production Weak cough, w/ production (less often than Q2hr), or secretion retention No cough, w/ secretion retention or production (less often than Q2hr) Significant secretion production (more often than Q2hr) or mucus plug 0 Aerosol Med(s), Bronchial Hygiene, Hyperinflation Level of Activity Ambulatory Ambulatory with Assist Up in chair or edge of bed (dangle) Non-ambulatory, bedridden with active ROM Completely paralyzed or without active ROM 1 Triage 5 0-2 Triage 4 3-5 Triage 3 6-10 Triage 2 11-14 Triage 1 >=15 Total 6 Triage Score = 3 TRIAGE SCORING - SUGGESTED FREQUENCIES Aerosol Therapy Bronchial Hygiene Hyperinflation Triage Score Q4h & PRN 1 Q4hWA (QID) & PRN 2 TID & PRN 3 BID & PRN 4 PRN 5 Therapy(s) Indicated Yes/No Aerosol Medication y Hyperinflation n Bronchial Hygiene y High Flow Oxygen n RT to enter/modify frequency of treatment order in EMR/EHR to match this RAP evaluation. Based on this RAP evaluation the following therapy is being initiated: Albuterol At the following frequency: BID & PRN Comments: Encourage C&DB, add Aerobika Thank you for involving Respiratory in the care of this patient, Nutrition Assessment Type and Reason for Visit: Reassess Nutrition Recommendations/Plan: Continue Regular Diet with Ensure Plus TID (+350 kcal, 20 g protein, 240 mL/serving) Encourage patient to participate in room service and order well balanced meals Please document all oral intake in EMR for most accurate nutrient intake assessment As able, please obtain weekly standing scale weights for most accurate anthropometric data and calculation of macronutrient and fluid needs RDN to continue to monitor weekly: fluid accumulation, weight, skin integrity, trends in lab values, tolerance of PO and ONS, clinical status, discharge planning. Malnutrition Assessment: Malnutrition Status: Severe malnutrition (copd) Context: Chronic Illness Findings of the 6 clinical characteristics of malnutrition: Energy Intake: 75% or less estimated energy requirements for 1 month or longer Weight Loss: Greater than 20% over 1 year (29% in 1 year) Body Fat Loss: Severe body fat loss Orbital, Buccal region Muscle Mass Loss: Severe muscle mass loss Temples (temporalis), Scapula (trapezius), Hand (interosseous) Fluid Accumulation: No significant fluid accumulation Hotel Controller Strength: Nutrition Assessment: 68 year old woman who remains admitted to [facility] at direction of PCP with FTT- +falls, poor PO, weight loss and SOB. Pulmonology consulted and supporting, +severe emphysema and imaging on admit showed: LLL density, suspected atelectasis . Steroid taper, +PNA. Orthopedics consulted and supporting, +Supracondylar left humerus fracture, no acute surgical interventions planning, +Cast to left arm. Palliative care and Geriatrics consulted and supporting, planning SNF discharge for short-term rehab. +4 L O2 via NC this morning. Sitting up in bed at time of assessment, this morning she consumed: a yogurt parfait, a breakfast sandwich and Ensure Plus supplement. Per patient and RN drinking daily. Bed scale weight of 42 kg or 92.4# obtained during visit. Denies: pain, nausea, GI distress. Encouraged PO. Estimated Daily Nutrient Needs: Energy Requirements Based On: Kcal/kg Weight Used for Energy Requirements: Weight for Energy Calculation (kg): 40.4 kg Total Energy Requirements (kcals/day): 30-35-40 or 1212- to 1414- 1616 Weight Used for Protein Requirements: Current Weight in Kg Used for Protein Requirements: 40.4 kg Estimated Total Protein (g/day): 1.2-1.8 or 48-73 Estimated Daily Total Fluid (ml/day): 1.2-1.6 liters Nutrition Related Findings: A+Ox4. No skin break down or edema noted, Jeri score= 20 +Supracondylar left humerus fracture with cast to left arm. PO >50%, +ONS. Meds: wellbutrin, buspar, maxipime, zyrtec, remeron, paxil, prednisone taper. Labs reviewed Wound Type: None Current Nutrition Therapies: Adult diet Regular Current Oral Intake Average Meal Intake: 51-75%, 76-100% Average Supplements Intake: 76-100% Anthropometric Measures: Height: 162.6 cm (5' 4") Current Body Weight: 42 kg (92 lb 9.5 oz) Weight Source: Bed Scale Admission Body Weight: 40.6 kg (89 lb 8.1 oz) (07/30/24 PCP office) Usual Body Weight: 55.5 kg (122 lb 5.6 oz) (per EMR 122.35# 09/08/23) % Weight Change (Calculated): -24.3 [place] Body Weight (lbs) (Calculated): 120 lbs [place] Body Weight (Kg) (Calculated): 55 kg % [place] Body Weight (Calculated): 77.2 % BMI (kg/m2) (Calculated): 15.9 Weight Adjustment For: No Adjustment BMI Categories: Underweight (BMI less than 22) age over 65 Nutrition Diagnosis: Severe malnutrition, In context of chronic illness related to inadequate protein-energy intake as evidenced by severe muscle loss, severe loss of subcutaneous fat, weight loss greater than or equal to 20% in 1 year, poor intake prior to admission Increased nutrient needs related to impaired respiratory function, increase demand for energy/nutrients as evidenced by (COPD and emphysema) Nutrition Interventions: Nutrition Education/Counseling: Education not indicated Coordination of Nutrition Care: Continue to monitor while inpatient Plan of Care discussed with: patient and RN Goals: Previous Goal Met: Progressing toward Goal(s) Goals: Meet at least 75% of estimated needs, other (specify) Specify Other Goals: educate on need for high calorie supplement Nutrition Monitoring and Evaluation: Behavioral-Environmental Outcomes: None Identified Food/Nutrient Intake Outcomes: Food and Nutrient Intake, Supplement Intake Physical Signs/Symptoms Outcomes: Biochemical Data, GI Status, Meal Time Behavior, Hemodynamic Status, Weight, Skin, Fluid Status or Edema, Nutrition Focused Physical Findings, Nausea or Vomiting Discharge Planning: Continue current diet, Continue Oral Nutrition Supplement Celeste Garcia, LAILAN, LDN, Contact: *[phone] [facility] Geriatric Medicine Inpatient Consult Service Admission Date: 07/30/2024 Assessment Principal Problem: Adult failure to thrive Plan Debility --contributing factors include medications, COPD, malnutrition, cognitive decline, subacute elbow fracture --uses a cane at baseline. --PT and OT eval - current recommendation is SNF --on several medications that can contribute to falls. See below. --Palliative care following - changed from Percocet to Morphine for shortness of breath --Family looking into [place] waiver --08/03: [facility] Severe Malnutrition --continue Mirtazapine --dietary following --recommend psychiatry outpatient follow up for further review of medications --08/03: Reports a fair appetite here. Anxiety Depression --Wellbutrin XL 150mg daily - continue at this time. Consider weaning outpatient. May contribute to weight loss. --Buspirone 15mg BID - Continue. --Mirtazapine 15mg at HS - continue. --Paroxetine 40 mg daily - Risk of anticholinergic side effects (falls, confusion). Consider slow wean to avoid withdrawal. Decreased to 30 mg daily. Further wean outpatient. --Seroquel 200mg at HS - changed to 50mg HS PRN and will monitor. Concern for fall risk. --Recommend outpatient Psychiatry follow up. --08/03: Continue on the reduced dose of seroquel. Of note, this was the dose recommended by [facility] psychiatry when she was hospitalized in summer 2023 Cognitive deficits --patient knowledgeable of her medical history and medications --+ history of cognitive decline at home. + history of decline in ADL's and IADL's - Debility, COPD, medications, and depression also contributing to functional decline. --Head imaging - CT head 04/28/24: no acute process. CT head 09/20/23: Unchanged small area of encephalomalacia in the lateral aspect of the right occipital lobe. --History concerning for baseline cognitive deficits. --Recommend outpatient follow up at [facility] for more in depth cognitive evaluation when in usual state of health. --08/03: stable Chronic pain --Continue Tylenol 650mg BID --Takes Flexeril 5mg - ordered for BID dosing at home (takes occasionally). Recommend avoiding/decreasing use due to fall/confusion risk. --Takes Oxycodone-Acetaminophen 5/325mg at home - reports taking every 6 hours. Currently on Morphine, per palliative medicine --08/03: Will stop flexeril, as she hasn't been taking the medication. Also, it is serotonergic and she is already on a few serotonergic medications. Consider a low dose of tizanidine prn if she develops muscle spasms At risk for delirium --Risk factors: pain, advanced age, sensory impairments, acute illness, high risk medications including steroids, and baseline cognitive deficits --Encourage PO intake, time up in chair, family visits, supervised ambulation, and sleep hygiene --If agitated, assess for and consider treating for pain --QTc= 439 ms --Continue scheduled melatonin at --08/03: She does not appear delirious today Follow-up: will follow with you Subjective Chief Complaint: shortness of breath Geriatrics consulted for "falls at home, failure to thrive" HPI- The patient is new to me but seen by the Geriatric Inpatient Consult team. 68 y.o. year-old female with past medical history of COPD, cervical cancer, DDD, DJD, osteoporosis, depression, compression fracture, vitain D deficiency, anxiety who was admitted to acute care for weight loss and shortness of breath. Diagnosed with Failure to Thrive, severe protein-calorie malnutrition, closed supracondylar fracture of left elbow, COPD. Ortho evaluated and diagnosed the fracture as subacute from Apr when she had a fall. Placed in long arm cast. Started on steroids for COPD exacerbation. Also being treated for pneumonia Reviewed today's orthopedic note Reviewed yesterday's palliative care note Reviewed today's case management notes Reviewed MAY: has not used prn flexeril She has used PRN seroquel each night she has been admitted. Interval History: -She reports feeling OK today. Her shortness of breath is mild and she isn't sure if it has improved over the past few days. Also with cough. Her appetite is "not bad". -Sleep: it was OK. She did wake up a few times. She does confirm that she takes the seroquel nightly at home for sleep. She notes waking up a bit more on the 50 mg nightly prn dose. Review of Systems Constitutional: Negative for fever. Respiratory: Positive for cough and shortness of breath. Cardiovascular: Negative for leg swelling. Gastrointestinal: Negative for abdominal pain, constipation, diarrhea and nausea. Genitourinary: Negative for dysuria. Musculoskeletal: Positive for arthralgias. Negative for myalgias. Psychiatric/Behavioral: Negative for confusion. Objective BP 113/65 (BP Location: Right arm, Patient Position: Sitting) Pulse 79 Temp 36.2 C (97.2 F) (Temporal) Resp 17 Ht 5' 4" (1.626 m) Wt 89 lb (40.4 kg) SpO2 94% BMI 15.28 kg/m Intake/Output Summary (Last 24 hours) at 08/03/2024 1118 Last data filed at 08/02/2024 2154 Gross per 24 hour Intake 200 ml Output -- Net 200 ml Wt Readings from Last 3 Encounters: 07/30/24 89 lb (40.4 kg) 04/27/24 108 lb (49 kg) 09/20/23 115 lb (52.2 kg) Current Medications[1] Physical Exam Constitutional: General: She is not in acute distress. Appearance: She is not ill-appearing. HENT: Head: Normocephalic and atraumatic. Cardiovascular: Rate and Rhythm: Normal rate and regular rhythm. Heart sounds: No murmur heard. No friction rub. No gallop. Pulmonary: Effort: Pulmonary effort is normal. Breath sounds: Decreased breath sounds (mild) present. No wheezing, rhonchi or rales. Abdominal: General: There is no distension. Palpations: Abdomen is soft. Tenderness: There is no abdominal tenderness. There is no guarding or rebound. Musculoskeletal: Right lower leg: No edema. Left lower leg: No edema. Comments: Left arm in a cast Neurological: Mental Status: She is alert. Psychiatric: Attention and Perception: Attention normal. Mood and Affect: Affect normal. Speech: Speech normal. Labs and Imaging: No results found for this or any previous visit (from the past 24 hours). Lab Results Component Value Date TSH 0.28 (L) 07/30/2024 Lab Results Component Value Date [id number] 639 07/30/2024 Lab Results Component Value Date VITD25 30 09/21/2023 [1] Current Facility-Administered Medications: acetaminophen (Tylenol) tablet 650 mg, 650 mg, Oral, q6h PRN OR acetaminophen (Tylenol) suppository 650 mg, 650 mg, Rectal, q6h PRN, Lauren Serna MD acetaminophen (Tylenol) tablet 650 mg, 650 mg, Oral, BID, Saad Ezdariene, LAMINATING PRESS OPERATOR - AN/SSN 2 4 OPERATOR, 650 mg at 08/03/24 09 albuterol (2.5 MG/3ML) 0.083% nebulizer solution 2.5 mg, 2.5 mg, Nebulization, q4h PRN, Lauren Serna MD, 2.5 mg at 08/01/242055 aspirin EC tablet 81 mg, 81 mg, Oral, Daily, Lauren Serna MD, 81 mg at 08/02/24 08 buPROPion XL (Wellbutrin XL) 24 hr tablet 150 mg, 150 mg, Oral, Daily, Lauren Serna MD, 150 mg at 08/03/24 09 busPIRone (Buspar) tablet 15 mg, 15 mg, Oral, BID, Lauren Serna MD, 15 mg at 08/03/24 09 calcitonin (Miacalcin) injection 50 Units, 50 Units, IntraMUSCular, Daily, Lauren Serna MD, 50 Units at 08/03/2415 cefepime (Maxipime) 2,000 mg in sodium chloride 0.9 % 50 mL IVPB Mini-Bag Plus, 2,000 mg, IntraVENous, q12h, Dejuan Bishop MD, Last Rate: 12.5 mL/hr at 08/03/24 0919, 2,000 mg at 08/03/24 0919 cetirizine (ZyrTEC) tablet 5 mg, 5 mg, Oral, Daily, Dejuan Bishop MD, 5 mg at 08/03/24 0911 cyclobenzaprine (Flexeril) tablet 5 mg, 5 mg, Oral, TID PRN, Lauren Serna MD enoxaparin (Lovenox) syringe 30 mg, 30 mg, SubCUTAneous, Daily, Lauren Serna MD, 30 mg at 08/03/24 09 fluticasone (Flonase) nasal spray 2 spray, 2 spray, Each Nostril, Daily, Lauren Serna MD, 2 spray at 08/01/24 1347 iopamidol (Isovue-370) 76 % injection 75 mL, 75 mL, IntraVENous, Once PRN, Rena Beverly MD melatonin tablet 3 mg, 3 mg, Oral, Nightly, Lauren Serna MD, 3 mg at 08/02/242047 mirtazapine (Remeron) tablet 15 mg, 15 mg, Oral, Nightly, Lauren Serna MD, 15 mg at 08/02/242047 mometasone-formoterol (Dulera 200) 200-5 MCG/ACT inhaler 2 puff, 2 puff, Inhalation, BID, Lauren Serna MD, 2 puff at 08/03/24913 montelukast (Singulair) tablet 10 mg, 10 mg, Oral, Nightly, Lauren Serna MD, 10 mg at 08/02/242047 morphine (MSIR) tablet 15 mg, 15 mg, Oral, q4h PRN, Imelda Bernard, LAMINATING PRESS OPERATOR - AN/SSN 2 4 OPERATOR, 15 mg at 08/03/24 0909 naloxone (Narcan) injection 0.4 mg, 0.4 mg, IntraVENous, q5 min PRN, Lauren Serna MD ondansetron ODT (Zofran-ODT) disintegrating tablet 4 mg, 4 mg, Oral, q8h PRN OR ondansetron (Zofran) injection 4 mg, 4 mg, IntraVENous, q6h PRN, Lauren Serna MD PARoxetine (Paxil) tablet 30 mg, 30 mg, Oral, q AM, Saad Elfego, LAMINATING PRESS OPERATOR - AN/SSN 2 4 OPERATOR, 30 mg at 08/03/24 0910 polyethylene glycol (PEG) 3350 (Miralax) packet 17 g, 17 g, Oral, Daily PRN, Lauren Serna MD predniSONE (Deltasone) tablet 30 mg, 30 mg, Oral, Daily, 30 mg at 08/03/24 0910 FOLLOWED BY [START ON 08/05/2024] predniSONE (Deltasone) tablet 20 mg, 20 mg, Oral, Daily FOLLOWED BY [START ON 08/07/2024] predniSONE (Deltasone) tablet 10 mg, 10 mg, Oral, Daily, Leann Cross, LAMINATING PRESS OPERATOR - AN/SSN 2 4 OPERATOR QUEtiapine (SEROquel) tablet 50 mg, 50 mg, Oral, Nightly PRN, Saad Telles APRN - AN/SSN 2 4 OPERATOR, 50 mg at 08/02/24 2048 sodium chloride ([place]) 0.65 % nasal spray 2 spray, 2 spray, Each Nostril, q2h PRN, Dejuan Bishop MD, 2 spray at 08/02/24 1621 tiotropium (Spiriva Respimat) 2.5 MCG/ACT inhaler 2 puff, 2 puff, Inhalation, Daily, Lauren Serna MD, 2 puff at 08/03/24 0915 Images from the original note were not included. PHYSICAL THERAPY [facility] Treatment Note Name/MRN: Gonzalo Deluca ([id number]) Date of : 1955 Age: 68 y.o. Room/Bed: [facility] B Visit #: 3 out of 7 visits Discharge Recommendation: Snf Facility Other: TBD at next level of care, pt owns a cane Prior Level of Function Prior Level of ADL Function: Independent Prior Level of Mobility: Independent; Device: Straight Cane Prior Level of Transfers: Independent Assessment Pt demonstrates continued motivation to participate in PT in order to progress toward goals. Pt is mod I for bed mobility, CGA for transfers and ambulation with cane for up to 40 ft. Pt on 4 L O2 and demonstrates delayed decrease in SpO2 with mobility. Pts SpO2 ranged 79-94% this date. Emphasis on paced pursed lip breathing (PLB) within session during activity. Pt could benefit from continued PT in order to progress toward goals. SNF recommendation remains appropriate at this time due to her high fall risk and minimal activity tolerance with mobility. Subjective Patient pleasant and agreeable to therapy session this date. Per RN patient okay for therapy. Observation: 4L O2, PIV Vitals SpO2 79-94% Pain: 0-10 pain scale: 6/10 Location: back Medical Precautions: No active isolations Proper PPE donned/doffed in accordance with facility standards. Fall Risk: Webb Fall Risk Score: 70 (Low Risk) Webb Fall Risk Score: 70 (High Risk) Precautions/Restrictions: Braces or Orthoses: L UE splint - long cast to by completed this admission by Dr. Gresham Left UE Weight Bearing: Non-Weight Bearing Lines/Drains/Airways: O2 Overall Cognitive Status: Exceptions - Safety judgement: decreased awareness of need for safety - Problem solving: decreased awareness of errors - Insights: decreased awareness of deficits Overall Orientation Status: Oriented x4 Family/Caregiver Present: none Objective Bed Mobility Supine to sit: Modified Independent Sit to supine: Modified Independent Scooting: Modified Independent Denies dizziness with positional changes. Pt completed while maintaining L UE NWB and able to provided therapist the rationale for why she is NWB on her L UE. Transfers/Mobility Sit to stand: Contact Guard, to SPC from EOB 2x Stand to sit: Contact Guard Denies dizziness on initial stance. Noted postural sway on initial stance. No true LOB. Device(s) used: Straight Cane Ambulation Ambulation 1 Assistive device(s) used: Straight Cane Assist level: Contact Guard Distance (ft): 40 ft x 2 Quality of gait: No LOB, reciprocal stepping, B foot clearance, uneven step length, slow lauren, postural sway, path deviations Gait training completed in order to improve patients functional strength, balance, safety and independence with mobility. Emphasis this date on paced PLB with exertion to prevent decreased SpO2 with activity. Pts SpO2 decreased to 79% on initial trial upon sitting EOB with ~2 minutes to return to >88%. Second trial patient demonstrates improved PLB and able to maintain SpO2 >87% with delayed drop again upon sitting. Pt demonstrates improved gait mechanics on second trial as well with slow pace and increased attention to task of breathing. Exercises Declined to complete due to back pain. Plan Continue acute PT per plan of care. Safety/Education Safety Safety Devices in place: All fall risk precautions in place, call light within reach, left in bed, gait belt, patient at risk for falls, nurse notified, and no alarms engaged upon entry Restraints: N/A Education Education Given To: patient Education Provided: PT Role, PT Goals, Gait Training, Plan of Care, Precautions, Transfer Training, Energy Conservation, Equipment, Fall Prevention Education, Discharge Recommendations, Benefits of Increasing Activity, and Breathing Techniques Education Method: Verbal, Demonstration, and Teach Back Barriers to Learning: Cognition Education Outcome: Verbalized Understanding, Demonstrated Understanding, and Continued Education Needed Outcome Measures AM-PAC AM-PAC Inpatient Mobility Raw Score (No Stairs) : 17 JH-HLM -HLM Score: Walked 25 ft or more (i.e. walked outside of room) Goals Patient Stated Goal: Patient states she wants to get stronger. Encounter Problems Encounter Problems (Active) Balance Patient will maintain dynamic standing balance for 5 minutes with modified independence in order to demonstrate decreased risk of falling. (Progressing) Start: 07/31/24 Expected End: 08/14/24 Exercise Patient will complete lower extremity exercises for 1-2 sets / 10 reps in order to improve strength and activity tolerance for mobility. (Not Addressed) Start: 07/31/24 Expected End: 08/14/24 Mobility Patient will ambulate 100 feet with modified independence and least restrictive device in order to improve safety and independence with mobility. (Progressing) Start: 07/31/24 Expected End: 08/14/24 Patient will ascend and descend 13 stairs with one railing and supervision in order to safely negotiate home. (Not Addressed) Start: 07/31/24 Expected End: 08/14/24 Safety Patient will recall/demonstrate weight bearing and/or ROM restrictions with all functional mobility in order to promote healing and safety with functional tasks. (Progressing) Start: 07/31/24 Expected End: 08/14/24 Transfers Patient will perform bed mobility with modified independence in order to improve independence and prepare for out of bed mobility. (Completed) Start: 07/31/24 Expected End: 08/14/24 Resolved: 08/03/24 Patient will complete functional transfers with least restrictive device with modified independence in order to prepare for ambulation. (Progressing) Start: 07/31/24 Expected End: 08/14/24 Therapy Time Individual Co-treatment Time In 0941 Time Out 1000 Minutes 19 Timed Code Treatment Minutes: 15 Minutes (gait x 1) Jennifer Esparza PT Images from the original note were not included. OCCUPATIONAL THERAPY [facility] Treatment Note Name/MRN: Gonzalo Deluca ([id number]) Date of : 1955 Age: 68 y.o. Room/Bed: [facility] B Visit #: 2 out of 6 visits Discharge Recommendation: Snf Facility Equipment Needed: No Prior Level of Function Prior Level of ADL Function: Independent Prior Level of Mobility: Independent; Device: Straight Cane Prior Level of Transfers: Independent Assessment Pt tolerated session fair, continues to be limited by fatigue and SOB. Pt completed bed mobility at Mod I. Pt completed x3 STS and LE dressing/bathing at [facility]. Pt completed seated UE bathing at Mod A. Pt reports limited social support. Pt is progressing with POC but is still below baseline and is a high fall risk. Pt would benefit from continued OT to improve activity tolerance, balance, and strength needed for improved occupational performance. Pt is recommended for SNF at D/C Subjective Pt supine in bed, pleasant and agreeable. Pain: Ignacio-Claros Pain Ratin = Hurts a little bit Pain Location: reports more of an "annoying" pain in her LUE Medical Precautions: No active isolations Proper PPE donned/doffed in accordance with facility standards. Fall Risk: Webb Fall Risk Score: 70 (Low Risk) Webb Fall Risk Score: 70 (High Risk) Precautions/Restrictions: Braces or Orthoses: L UE splint - long cast to by completed this admission by Dr. Gresham Left UE Weight Bearing: Non-Weight Bearing Lines/Drains/Airways: O2 Family/Caregiver Present: none Objective ADLs LE Dressing: Contact Guard Grooming: Modified Independent, after setup UE Bathing: Mod Assist, after setup LE Bathing: Contact Guard Pt maintained LUE NWB throughout. Pt demo appropriate functional reach, limited by SOB during anterior trunk flexion. Pt doffed pants with unilateral UE support at CGA. Pt demo no overt LoB. Pt demo threading LE clothing while seated and managed over hips in standing at CGA. Pt doffed/donned austin socks while seated EOB with figure 4 tech at Mod I. Pt completed seated face washing at EOB at Mod I. Pt completed UE bathing while seated EOB with Mod A after set up. Pt with IV running and in personal shirt, unable to fully doff shirt for bathing. Pt required assist to wash R side due to LUE with cast. Pt completed standing LE bathing (periarea) at [facility]. Pt demo no overt LoB, generally unstable. Pt required seated rest break x2 due to increased SOB. Pt completed BLE bathing while seated without hands on assist Bed Mobility Supine to sit: Modified Independent Sit to supine: Modified Independent Scooting: Modified Independent HOB Elevated Use of bed rail(s) Pt completed all aspects of bed mobility with use of bed features at Mod I. Pt able to maintain LUE NWB throughout. Transfers/Mobility Sit to stand: Contact Guard Stand to sit: Contact Guard, Pt completed x3 STS from EOB without device at [facility]. Pt ed on proper tech to maintain LUE NWB, demo good teachback. Pt denied dizziness but demo SOB Sitting balance: Independent Standing balance: Contact Guard Pt completed standing ADL tasks at CGA. Pt demo instability but no overt LoB. Pt limited by SOB. Device(s) used: None Cognition - Safety judgement: decreased awareness of need for assistance WFL Plan Continue acute OT per plan of care. Safety/Education Safety Safety Devices in place: All fall risk precautions in place, call light within reach, left in bed, patient at risk for falls, nurse notified, and no alarms engaged upon entry Restraints: No Education Education Given To: patient Education Provided: OT Role, Plan of Care, Precautions, ADL Adaptive Strategies, Transfer Training, Fall Prevention Education, and Discharge Recommendations Education Method: Verbal, Demonstration, and Teach Back Barriers to Learning: None Education Outcome: Verbalized Understanding, Demonstrated Understanding, and Continued Education Needed AM-PAC AM-PAC Inpatient Daily Activity Raw Score: 18 ADL Inpatient CMS G-Code Modifier: CK Goals Patient Stated Goal: none stated at this time. Encounter Problems Encounter Problems (Active) Balance Patient will maintain dynamic standing balance for 3 minutes with modified independence in order to demonstrate decreased risk of falling. (Progressing) Start: 08/01/24 Expected End: 08/07/24 Dressings Lower Extremities Patient will dress lower body with mod I (Progressing) Start: 08/01/24 Expected End: 08/07/24 Mobility pt will perform functional mobility and transfers with Mod I (Progressing) Start: 08/01/24 Expected End: 08/07/24 OT Misc pt will use EC/breathing techniques to maintain Spo2 > 90% during functional activities (Progressing) Start: 08/01/24 Expected End: 08/07/24 Toileting Patient will complete toileting tasks at standard toilet with modified independence. (Not Addressed) Start: 08/01/24 Expected End: 08/07/24 Therapy Time Individual Co-treatment Time In 1017 Time Out 1033 Minutes 16 Timed Code Treatment Minutes: 16 Minutes (1 ADL) VAN Nelson Cosigned by Heidi Park OT at 08/03/2024 2:32 PM EDT Hospitalist Progress Note 08/03/2024 Subjective: Admit Date: 07/30/2024 PCP: HERMINIA CASE MD Room#: B2-254/B2-254 B BRIEF HOSPITAL COURSE: 68-year-old female with a history of COPD who presents to the emergency department with worsening weight loss, failure to thrive, and increased shortness of breath. The patient reports significant weight loss, stating her weight has decreased to 89 pounds, with a total loss of 40 pounds. She describes increased anorexia, expressing no desire to eat or drink and feeling "just not hungry." The patient's shortness of breath, which is chronic due to her COPD, has worsened. She arrived at the emergency department requiring 3 liters of oxygen. Her baseline respiratory status includes chronic respiratory failure, requiring 3 liters of oxygen, and severe emphysema. In April, the patient experienced a fall resulting in left elbow pain, which has persisted since then. A fracture was identified on imaging, described as "several months old." The patient's condition has significantly impacted her overall health and functioning, leading to a failure to thrive diagnosis. Her severe malnourishment and unintentional weight loss have contributed to her debilitated state. The combination of her respiratory issues, chronic pain, and nutritional deficits has led to a decline in her overall health status. Recent healthcare interactions include consultations with [facility], palliative care, pulmonology, orthopedic surgery, geriatrics, and speech-language pathology. These consultations were initiated to address various aspects of her complex medical condition. VS on arrival HR 91, RR 18, BP 114/79, Spow 90 % on 3 liters. EKG showed heart rate of 95, normal sinus rhythm. Labs: Hemoglobin 11.2, MCP 103, glucose 80, albumin 3, folate low at 5.2. No WC in urine. Imaging: Left elbow fracture several months old. CT-CAP showed new red shaped sepulchral spats, opacity in left lower lobe, likely pneumonia or lung infarction. Multiple chronic osteoporotic compression fractures in thoracic and lumbar spine. Interval History: She describes chronic back pain who feels the morphine is helping. Denies any fever, chills. Feels that her appetite has improved she is aware that she has 3 different bacteria secondary pneumonia pain well no concerns of stool walking okay was walking up and down the room denies any headache or dizziness. No overnight issues. Case and plan discussed with patient and bedside nurse. All questions answered. Adult diet Regular 24HR INTAKE/OUTPUT: Intake/Output Summary (Last 24 hours) at 08/03/2024 0906 Last data filed at 08/02/2024 2154 Gross per 24 hour Intake 200 ml Output -- Net 200 ml Past Medical History: Medical History[1] LABS: CBC: No results for input(s): "WBC", "RBC", "HGB", "HCT", "MCV", "RDW", "PLT" in the last 72 hours. BMP:No results for input(s): "NA", "K", "CL", "CO2", "BUN", "CREATININE", "GLUCOSE", "CALCIUM", "ANIONGAP" in the last 72 hours. LIVER PROFILE:No results for input(s): "AST", "ALT", "BILITOT", "ALKPHOS", "PROT" in the last 72 hours. No lab exists for component: LABALBU PT/INR: No results for input(s): "PROTIME", "INR" in the last 72 hours. CARDIAC ENZYMES: No results for input(s): "TROPONINI" in the last 72 hours. Procalcitonin: No results found for: "PROCAL" COVID-19 PCR: No results for input(s): "COVID19" in the last 72 hours. Objective: Vitals: BP 113/65 (BP Location: Right arm, Patient Position: Sitting) Pulse 79 Temp 36.2 C (97.2 F) (Temporal) Resp 17 Ht 5' 4" (1.626 m) Wt 89 lb (40.4 kg) SpO2 94% BMI 15.28 kg/m Pulse Ox: SpO2 Av % Min: 94 % Max: 94 % Supplemental O2: O2 Flow Rate (L/min): 4 L/min Physical Exam Vitals and nursing note reviewed. HENT: Mouth/Throat: Pharynx: Oropharynx is clear. Eyes: Conjunctiva/sclera: Conjunctivae normal. Cardiovascular: Rate and Rhythm: Normal rate. Heart sounds: No murmur heard. Pulmonary: Effort: Pulmonary effort is normal. No respiratory distress. Breath sounds: No wheezing or rales. Abdominal: General: Bowel sounds are normal. There is no distension. Tenderness: There is no abdominal tenderness. There is no guarding. Comments: Thin appearance Musculoskeletal: General: Tenderness and signs of injury present. Comments: left sided cast above elbow Skin: General: Skin is warm. Capillary Refill: Capillary refill takes less than 2 seconds. Findings: Bruising (Bilateral upper and lower extremity) present. Comments: Hip scars bilaterally Neurological: General: No focal deficit present. Mental Status: She is alert and oriented to person, place, and time. Medications: Scheduled PRN Scheduled Meds[2] PRN Meds[3] Continuous Continuous Meds[4] Assessment Data: (CAT1) Reviewed 3 or more notes from different specialty or health system (each=1). (CAT1) Reviewed 3 or more labs/studies ordered by another provider not previously counted (each=1, panels count as 1). (LOW: 2x CAT1 or independent historian MOD: 3x CAT1 or 1x CAT3 EXTENSIVE: 3x CAT1 and 1x CAT3) Acute, acute on chronic, unstable/uncontrolled chronic problems/diagnoses: 8-year-old female with history of COPD presents with worsening weight loss, failure to thrive, and increased shortness of breath. Failure to thrive with severe malnourishment Assessment: Patient has experienced significant unintentional weight loss of 40 pounds, with current weight at 89 pounds. She reports increased anorexia and no desire to eat or drink. Lab results show low albumin (3) and low folate (5.2), indicative of malnutrition. This condition is likely exacerbated by her chronic respiratory failure and severe emphysema. Plan: - Palliative care consultation for management of failure to thrive and debility - [facility]AL SMELTER evaluation: recommended regular solids with thin liquids, sitting upright, slow rate of intake, and small bites - Consider [facility] facility placement for comprehensive care - Geriatrics involvement for assisted living waiver exploration Chronic respiratory failure with severe emphysema Assessment: Patient has a history of COPD with chronic shortness of breath on exertion. She arrived on 3 liters of oxygen, which is her baseline. Last PFT shows FEV1 of 11.4% and 50% predicted. CT chest shows severe pulmonary emphysema and new round-shaped septal spots, opacity in left lower lobe, possibly indicating pneumonia or lung infarction. Neoplasm is considered unlikely. Plan: - Continue oxygen therapy at 3 liters - Pulmonology consultation - Follow-up CT chest, abdomen, and pelvis - Continue bronchodilator therapy: Dulera and Spiriva with tapering dosing - Incentive spirometry - Outpatient pulmonary function testing - PT and OT referrals Chronic pain (left elbow fracture) Assessment: Patient reports left elbow pain since a fall in April. Imaging confirms a left elbow fracture several months old. [facility] was consulted. Plan: - Orthopedic surgeon to apply LAC tomorrow - Continue Tylenol 650 mg BID - Rotative morphine 7.5 mg Q4 hours for pain and shortness of breath - Consider discontinuing Flexeril if possible - discontinued and if need to start due tizanidine instead - Discontinue oxycodone-acetaminophen L-supracondylar humerus fracture related to severe osteoporosis Anxiety and depression Assessment: Patient is on multiple psychotropic medications for anxiety and depression management. Plan: - Continue: - Wellbutrin (dose not specified) - Effexor 150 mg daily (recommend weaning outpatient) - Buspirone 15 mg BID - Mirtazapine 15 mg at bedtime - Adjust: - Decrease paroxetine from 40 mg to 30 mg daily - Change Seroquel from 200 mg to 50 mg at bedtime - Discontinue: - Sudafed - Consider slow outpatient weaning of gabapentin - Monitor for improvement in appetite with medication adjustments Plan As a result of the above findings & factors, the following mgmt was pursued: - L-supracondylar humerus fracture related to severe osteoporosis - am labs, replace lytes prn - PT/OT/CM/SW - delirium precautions: increase activity and limit nighttime disturbances - DVT prophylaxis: enoxaparin and encourage ambulation Complexity: Chronic illness with severe exacerbation, progression, or side effect of tx (HIGH). Risk: Admission to hospital-level care was considered or occurred (HIGH). Advance Directive: DNR-CCA Anticipated Discharge - Date - - Location - SNF - Pending the following - final placement Total time spent (which include face to face and non face to face encounters) : 58 minutes Toxic drug monitoring/narrow therapeutic index drug monitoring : # Drug name : lovenox # Route administered : SQ # Method of monitoring : Monitor for bleeding Extended Emergency Contact Information Primary Emergency Contact: Karishma Deluca [address]: [address] [place] [id number] [facility] Mobile Relation: Daughter Secondary Emergency Contact: Jace Deluca Mobile Relation: Son Rena Tuyet Beverly MD Division of Hospitalist Medicine [facility] [1] Past Medical History: Diagnosis Date Abnormal stress test Acute exacerbation of chronic obstructive pulmonary disease (HCC) 04/12/2018 Allergic rhinitis Arthritis Asthma Bronchitis Cancer (CMS/HCC) (HCC) skin Cervical cancer (HCC) Chest pain COPD (chronic obstructive pulmonary disease) (HCC) USE OXYGEN 3 L AT NIGHT DDD (degenerative disc disease), cervical Defect, retina, with detachment right DJD (degenerative joint disease), lumbar Emphysema lung (HCC) Former smoker Hematuria SCHEDULED FOR THE PROCEDURE /SURGERY ON 02/11/2017 Hypokalemia Lung nodules Near syncope 09/19/2023 Osteoporosis Palpitations Pneumonia Recurrent major depression (HCC) Sciatica Thoracic compression fracture (HCC) Vitamin D deficiency [2] acetaminophen, 650 mg, Oral, BID aspirin, 81 mg, Oral, Daily buPROPion XL, 150 mg, Oral, Daily busPIRone, 15 mg, Oral, BID calcitonin, 50 Units, IntraMUSCular, Daily cefepime, 2,000 mg, IntraVENous, q12h cetirizine, 5 mg, Oral, Daily enoxaparin, 30 mg, SubCUTAneous, Daily fluticasone, 2 spray, Each Nostril, Daily melatonin, 3 mg, Oral, Nightly mirtazapine, 15 mg, Oral, Nightly mometasone-formoterol, 2 puff, Inhalation, BID montelukast, 10 mg, Oral, Nightly PARoxetine, 30 mg, Oral, q AM predniSONE, 30 mg, Oral, Daily Followed by [START ON 08/05/2024] predniSONE, 20 mg, Oral, Daily Followed by [START ON 08/07/2024] predniSONE, 10 mg, Oral, Daily tiotropium, 2 puff, Inhalation, Daily [3] PRN medications: acetaminophen OR acetaminophen, albuterol, cyclobenzaprine, morphine, naloxone, ondansetron ODT OR ondansetron, polyethylene glycol (PEG) 3350, QUEtiapine, sodium chloride [4] Images from the original note were not included. [facility] [place] [address] [place] [id number] Patient - Gonzalo Deluca, Age - 68 y.o. - 1955 Room Number - B2-254/B2-254 B Consulting - Rena Beverly MD Primary Care Physician - [phone] Date of Admission - 07/30/2024 4:40 PM Hospital Day - 2 Chief Complaint Gonzalo Deluca is a 68 y.o. female who pulmonary is following for Emphysema/ lung density/CRF Interval History Continues to improve awake and alert no distress Sputum culture growing Pseudomonas final results pending Sputum PCR positive for poly microbes Currently on cefepime HPI Gonzalo Deluca is a 68 y.o. female admitted for Weight loss failure to thrive Patient with a history of severe underlying emphysematous lung disease, chronic respiratory failure on home oxygen heavy tobacco use quit 6 years ago continues to vape lung nodules in the past thoracic compression fracture admitted with main complaint of losing weight almost 40 pounds in recent months poor appetite failure to thrive Underwent CT chest which did show severe emphysema Left lower lobe density, new in comparison to previous CAT scan Favor tiny lung nodule both lower lobes Patient having cough with phlegm however having difficulty coughing up the phlegm Denies any fever chills Rigor Shortness of breath more recently Denies any hemoptysis hematemesis melena hematuria Apparently not seeing any staff genetic counselor recently Was on Dulera Spiriva and rescue inhaler compliant with the medication Not on NIV No PFT available in [facility] All other systems reviewed Objective Vitals: BP 113/65 (BP Location: Right arm, Patient Position: Sitting) Pulse 79 Temp 36.2 C (97.2 F) (Temporal) Resp 17 Ht 5' 4" (1.626 m) Wt 89 lb (40.4 kg) SpO2 94% BMI 15.28 kg/m Pulse Ox: SpO2 Av % Min: 94 % Max: 94 % Supplemental O2: O2 Flow Rate (L/min): 4 L/min I/O 24HR INTAKE/OUTPUT: Intake/Output Summary (Last 24 hours) at 08/03/2024 0858 Last data filed at 08/02/2024 2154 Gross per 24 hour Intake 200 ml Output -- Net 200 ml Exam General appearance: Awake and alert on 4 L sat 94% HEENT: Normocephalic, atraumatic. Pupils equil and round, External ear normal, conjunctivae normal, negative for scleral icterus. No congestion. Neck: ROM normal, supple, trachea midline. No lymphadenopathy Cardiovascular: Regular rate and rhythm. Heart sounds normal. Negative for murmur, friction rub or gallop. Pulmonary: Effort normal, no respiratory distress/conversational dyspnea Increased AP diameter of the chest Markedly decreased breath sound Few basilar rales No wheezing No pleural rub Abdomen: Soft, non distended, non tender, bowel sounds normal. No palpable masses. No Hepatomegaly Musculoskeletal: ROM normal, Negative for swelling, tenderness or deformity. Skin: Warm, dry. Skin color, texture, turgor normal. Negative for rashes or lesions. Extremities: No clubbing, cyanosis, or extremity edema Left upper extremity in splint Neurological: No focal deficits. Alert and oriented x 3. Cranial nerves II-XII are intact Lymphatics: No cervical or axillary lymphadenopathy Psychiatric: Mood, behavior, thought content normal. Cooperative with exam. Medications Current Medications Scheduled Meds[1] PRN Mediations PRN Meds[2] IV Drips/Infusions Continuous Meds[3] Labs CBC Results from last 7 days Lab Units 07/30/24 1729 WBC AUTO 10*3/uL 8.9 HEMOGLOBIN g/dL 11.2* HEMATOCRIT % 37.0 PLATELETS 10*3/uL 225 BMP: Results from last 7 days Lab Units 07/30/24 1729 SODIUM mmol/L 144 POTASSIUM mmol/L 5.0 CHLORIDE mmol/L 103 CO2 mmol/L 37* BUN mg/dL 16 CREATININE mg/dL 0.63 GLUCOSE mg/dL 80* CALCIUM mg/dL 8.8 ABG: LIVER PROFILE Results from last 7 days Lab Units 07/30/24 1729 ALK PHOS U/L 97 BILIRUBIN TOTAL mg/dL 0.2 BILIRUBIN DIRECT mg/dL 0.1 PROTEIN TOTAL g/dL 6.5 ALT U/L 10 AST U/L 21 INR PTT No results found for: "PTT" Cultures Radiology Exam Date/Time: 07/31/2024 15:25 Procedure: CT CHEST ABDOMEN PELVIS W CONTRAST Ordering Provider: SERNA DANIEL Reason For Exam: unexplained weight loss EXAMINATION: CT CHEST ABDOMEN PELVIS W CONTRAST CLINICAL HISTORY: unexplained weight loss COMPARISON: 10/16/2023 TECHNIQUE: Contiguous axial images were obtained through the chest abdomen and pelvis from the level of the thoracic inlet through the pubic symphysis following administration of intravenous contrast. Dose reduction was employed with automated exposure control. FINDINGS: Cardiovasculature: Heart size is normal. Left upper extremity PICC line with tip in the SVC. Normal caliber thoracic aorta. No central pulmonary emboli. Mediastinum/Pericardium: Small amount of pericardial fluid, similar to the prior. Lymph Nodes: No thoracic lymphadenopathy is evident Pleura: Unremarkable Central Airways: No airway nodules. Lungs: Severe diffuse emphysematous changes bilaterally. There is a new peripheral wedge-shaped airspace opacity posteriorly in the left lower lobe. A few tiny centrilobular nodules are also noted in both lower lobes. No other sites of airspace consolidation. Hepatobiliary: No suspicious hepatic lesions. The gallbladder is contracted. Pancreas: Unremarkable Spleen: Unremarkable Adrenal Glands: Unremarkable Kidneys, ureters, and bladder: No calculi or hydroureteronephrosis. Abdominal and pelvic vasculature: Unremarkable GI tract: No evidence of obstruction. The appendix is not visualized. Peritoneum and retroperitoneum: No free fluid or free air is noted. Lymph Nodes: No abdominal or pelvic lymphadenopathy is evident. Pelvis: Unremarkable Visualized musculoskeletal structures: Remote ORIF of the left hip. Chronic osteoporotic compression fractures of the T6-T9, T11, and L2-L4 vertebral bodies. No destructive bone lesion or acute fractures. IMPRESSION: 1. New wedge-shaped subpleural airspace opacity in the left lower lobe is most likely either focal pneumonia or a lung infarct. Neoplasm is unlikely, but follow-up to resolution is recommended. 2. No acute findings in the abdomen or pelvis. 3. Multiple chronic osteoporotic compression fractures in the thoracic and lumbar spine. 4. Severe pulmonary emphysema. 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 Patient emphysema clinically as well as radiologically appears to be severe no current PFT available on [facility] 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 prednisone Continue to wean FiO2 Bronchodilator therapy Advance Directive: DNR-CCA Case discussed with nurse and patient. Questions and concerns addressed. Portions of the information within this encounter were entered using an electronic dictation system. Best attempts were made to edit/proofread the information prior to note completion. Despite the review of information, some errors may remain. If there are questions related to the information contained within the note please contact the signing provider directly. [1] acetaminophen, 650 mg, Oral, BID aspirin, 81 mg, Oral, Daily buPROPion XL, 150 mg, Oral, Daily busPIRone, 15 mg, Oral, BID calcitonin, 50 Units, IntraMUSCular, Daily cefepime, 2,000 mg, IntraVENous, q12h cetirizine, 5 mg, Oral, Daily enoxaparin, 30 mg, SubCUTAneous, Daily fluticasone, 2 spray, Each Nostril, Daily melatonin, 3 mg, Oral, Nightly mirtazapine, 15 mg, Oral, Nightly mometasone-formoterol, 2 puff, Inhalation, BID montelukast, 10 mg, Oral, Nightly PARoxetine, 30 mg, Oral, q AM predniSONE, 30 mg, Oral, Daily Followed by [START ON 08/05/2024] predniSONE, 20 mg, Oral, Daily Followed by [START ON 08/07/2024] predniSONE, 10 mg, Oral, Daily tiotropium, 2 puff, Inhalation, Daily [2] PRN medications: acetaminophen OR acetaminophen, albuterol, cyclobenzaprine, morphine, naloxone, ondansetron ODT OR ondansetron, polyethylene glycol (PEG) 3350, QUEtiapine, sodium chloride [3] [4] Patient Active Problem List Diagnosis Poor venous access Other specified complication of vascular prosthetic devices, implants and grafts, initial encounter (HCC) Chronic back pain COPD (chronic obstructive pulmonary disease) ([facility]) DDD (degenerative disc disease), cervical Leukocytosis Malignant neoplasm of exocervix (HCC) Recurrent major depression ([facility]) Pulmonary nodule S/P hysterectomy Sciatica Shortness of breath Supplemental oxygen dependent PNA (pneumonia) H/O: CVA (cerebrovascular accident) Former smoker Nondisplaced fracture of neck of left femur (HCC) Lumbar compression fracture, closed, initial encounter ([facility]) Severe malnutrition (CMS/HCC) (HCC) Falls frequently Unintentional weight loss Debility PFO (patent foramen ovale) Adult failure to thrive H: No results for input(s): "HGB", "WBC" in the last 72 hours. VS: Blood pressure 145/89, pulse 101, temperature 36.4 C (97.5 F), temperature source Temporal, resp. rate 18, height 1.626 m (5' 4"), weight 40.4 kg (89 lb), SpO2 94%. No complaints or overnight issues. PE: LAC intact LUE. 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 Lab Results Component Value Date WBC 8.9 07/30/2024 HGB 11.2 (L) 07/30/2024 HCT 37.0 07/30/2024 PLT 225 07/30/2024 Images from the original note were not included. Palliative Care Progress Note Chief Complaint: Gonzalo Deluca is a 68 y.o. female with chief complaint of weight loss. Palliative Care is actively following. Assessment/Plan Goals of care Gonzalo Deluca retains capacity for medical decision-making -legal surrogate decision maker is unknown, daughter listed in emergency contacts-->Karishma Deluca ( ) -Would encourage completion of HCPOA while admitted. -goals of care include: 1) improve SOB 2) improve pain Fall L Elbow fracture Debility, FTT -Worsening functional status at home. -She lives with her daughter, mainly stays on 2nd floor in her room where she has microwave and fridge. -She is really not able to go up and down steps well. -PT/OT. -s/p casting with ortho. -Orthopedics following, non-op fracture. -Monitor. Unintentional weight loss Pulmonary cachexia -Patient is severely malnourished appearing. -Noted that reports that she is not hungry and when she does try to eat she is full only after a few bites. -Endorses feeling very short of breath when trying to eat. -Child Development Teacher would be helpful. -BMI 15.28 -Albumin-->3.0 -Monitor. Chronic respiratory failure Dyspnea Severe emphysema -3L baseline. Worsening SOB as of late. -Continue MSIR to 15 mg Q4 hour PRN severe pain/shortness of breath. -Patient is not sure how well this is helping her shortness of breath at this time. -Continue to follow on symptoms. Discussed with her that we could rotate back to percocet/oxycodone if this was more effective. -PFT last done in 2016-->FEV1/FVC reduced, FEV1 1.45, 50% predicted. No bronchodilator response. Severe obstructive ventilatory defect with evidence of gas trapping, no evidence of hyperinflation or bronchodilator response. -Noted that we continue to follow for goals of care. -CT CAP 13-->reviewed, severe emphysema. -Pulmonology following. -monitor. Continue to follow. Palliative Care Encounter -Code Status: DNR-CCA, OK for intubation. - will continue to follow for ongoing monitoring of progression of Dyspnea as well as for appropriateness for hospice care due to COPD and Respiratory Failure Discharge planning: Per primary team. Patient meets criteria for general inpatient hospice care: No Palliative Care IDT members involved: None Discussed the plan of care with the other interdisciplinary team (IDT) members of the Palliative Care and Hospice teams and Patient. Subjective: Subjective/Events Gonzalo Deluca is a 68 y.o. female seen today, seen today, In bed. She received her cast with orthopedics today. States feels better now with stabilization. NAEON. Still unsure about response to MSIR. Discussion with her re: rotation back to percocet/oxycodone she is willing to try the morphine for another dose or 2 and then will re-visit discussion tomorrow. Continue to follow all other systems reviewed and negative. Palliative Care Assessments: Goals of care: Continue Current Management, Live Longer, extend life as much as possible, Improve or Maintain Function/Quality of Life, Preserve [place]/Autonomy/Control, and Remain at Home Advanced Directives: DNR-CCA, DNI Functional Assessment: PPS 70% amb reduced; can't do normal work/some disease; full self care; normal or reduced intake; full LOC Prognosis: depends upon goals of care Spiritual Assessment: No spiritual distress identified Bereavement and Grief: To Be Determined PDMP/OARRS Reviewed: Yes-reviewed ROS: See palliative care ROS/ESAS below; All other systems were reviewed and are negative. [place] Symptom Assessment Score [place] Score Pain Score (if non-verbal, add .FLACC below) 0 Tiredness Score 0 Nausea Score 0 Depression Score 0 Anxiety Score 0 Drowsiness Score 0 Anorexia Score (0= eating well, 10= not eating) 7 Wellbeing Score (10= worst sense of well-being) 7 Constipation 0 Dyspnea Score (0= no shortness of breath) 4 Family Meeting: Participants: patient Family meeting was held to discuss:Goals of Care, Treatment Options, and Symptom Management Objective: BP 123/80 (BP Location: Right arm, Patient Position: Sitting) Pulse 87 Temp 36.5 C (97.7 F) (Temporal) Resp 16 Ht 5' 4" (1.626 m) Wt 89 lb (40.4 kg) SpO2 93% BMI 15.28 kg/m Physical Exam Vitals and nursing note reviewed. Constitutional: General: She is awake. She is not in acute distress. Appearance: She is cachectic. She is ill-appearing. Interventions: Nasal cannula in place. HENT: Head: Normocephalic and atraumatic. Nose: Nose normal. Mouth/Throat: Mouth: Mucous membranes are moist. Pharynx: Oropharynx is clear. Eyes: General: Right eye: No discharge. Left eye: No discharge. Extraocular Movements: Extraocular movements intact. Pupils: Pupils are equal, round, and reactive to light. Cardiovascular: Rate and Rhythm: Normal rate and regular rhythm. Pulses: Normal pulses. Heart sounds: Normal heart sounds. No murmur heard. Pulmonary: Effort: Pulmonary effort is normal. No respiratory distress. Breath sounds: Normal breath sounds. Abdominal: General: Abdomen is flat. There is no distension. Palpations: Abdomen is soft. Tenderness: There is no abdominal tenderness. Musculoskeletal: Cervical back: Normal range of motion and neck supple. Right lower leg: No edema. Left lower leg: No edema. Skin: General: Skin is warm and dry. Capillary Refill: Capillary refill takes less than 2 seconds. Coloration: Skin is pale. Neurological: Mental Status: She is alert and oriented to person, place, and time. Mental status is at baseline. Psychiatric: Mood and Affect: Mood normal. Behavior: Behavior normal. Behavior is cooperative. Thought Content: Thought content normal. Judgment: Judgment normal. Medication information: 24-hour PRN meds received: seroquel 50 mg x1, MSIR 15mg x4 Results/Verification of Data Review Objective data reviewed (must include dates reviewed for labs, imaging reports and other specialty notes): BMP, CBC 08/02/24 Data in Support of Terminal Illness: Is patient hospice appropriate? Eligible, but not consistent with GOC at this time DB Aggarwal CNP Images from the original note were not included. PHYSICAL THERAPY [facility] Treatment Note Name/MRN: Gonzalo Deluca ([id number]) Date of : 1955 Age: 68 y.o. Room/Bed: B2-254/B2-254 B Visit #: 2 out of 7 visits Discharge Recommendation: Continue to assess pending progress, Snf Facility Other: TBD at next level of care, pt owns a cane Prior Level of Function Prior Level of ADL Function: Independent Prior Level of Mobility: Independent; Device: Straight Cane Prior Level of Transfers: Independent Assessment Pt continues to make good overall progress towards established therapy goals this date. Remains limited by SOB and rapid onset of fatigue. Pt completed bed mobility at [facility], STS transfers with IV pole to assist at CGA, Gait training with IV pole for support completed at Min/CGA. Pt tolerated all activity well and gave good overall effort. Vitals noted in subjective section below. Pt will continue to benefit from skilled therapy services during acute medical stay to improve upon presenting deficits prior to discharge to SNF pending progress with therapy services. Subjective Pt pleasant and agreeable to PT session. RN cleared pt for session. Vitals SpO2 on 5L NC 83-91% Educated on PLB technique for recovery with fair overall return. Pain: Pt denies any current pain. Medical Precautions: No active isolations Proper PPE donned/doffed in accordance with facility standards. Fall Risk: Webb Fall Risk Score: 70 (Low Risk) Webb Fall Risk Score: 70 (High Risk) Precautions/Restrictions: Braces or Orthoses: L UE splint - long cast to by completed this admission by Dr. Gresham Left UE Weight Bearing: Non-Weight Bearing Lines/Drains/Airways: O2 Overall Cognitive Status: WFL Overall Orientation Status: Oriented x4 Family/Caregiver Present: none Objective Bed Mobility Supine to sit: Contact Guard Sit to supine: Contact Guard CGAx1 for all bed mobility. Minor cues for activity pacing, hand placement for self assistance and overall body mechanics. Good return noted. No overt LOB. Increased time needed to complete. Transfers/Mobility Sit to stand: Contact Guard Stand to sit: Contact Guard Pt completed STS from EOB x3 with IV pole as support at CGAx1. No overt LOB noted. Mild multidirectional postural swaying present. Cues given for sequencing, transfer surface approximation and overall pacing. Fair return noted. Device(s) used: IV Pole Ambulation Ambulation 1 Assistive device(s) used: IV Pole Assist level: Contact Guard, Min Assist Distance (ft): 35ftx1 Quality of gait: No LOB, reciprocal stepping, B foot clearance, shuffling, narrow SADIE, slow lauren, postural sway, path deviations Pt completed gait training with IV pole for support while maintaining NWB status to LUE. Cues required for proper heel toe sequencing, gait stabilization and overall body mechanics. 2 minor episodes of lateral gait deviation d/t onset of fatigue and SOB. Min Ax1 needed to correct. Plan Continue acute PT per plan of care. Safety/Education Safety Safety Devices in place: All fall risk precautions in place, call light within reach, left in bed, gait belt, patient at risk for falls, nurse notified, and no alarms engaged upon entry Restraints: N/A Education Education Given To: patient Education Provided: PT Role, PT Goals, Gait Training, Plan of Care, Transfer Training, Energy Conservation, IADL Safety, Equipment, Fall Prevention Education, Discharge Recommendations, Benefits of Increasing Activity, and Breathing Techniques Education Method: Verbal and Demonstration Barriers to Learning: None Education Outcome: Verbalized Understanding, Demonstrated Understanding, and Continued Education Needed Outcome Measures AM-PAC AM-PAC Inpatient Mobility Raw Score (No Stairs) : 15 JH-HLM -M Score: Walked 25 ft or more (i.e. walked outside of room) Goals Patient Stated Goal: Patient states she wants to get stronger. Encounter Problems Encounter Problems (Active) Balance Patient will maintain dynamic standing balance for 5 minutes with modified independence in order to demonstrate decreased risk of falling. (Progressing) Start: 07/31/24 Expected End: 08/14/24 Exercise Patient will complete lower extremity exercises for 1-2 sets / 10 reps in order to improve strength and activity tolerance for mobility. (Not Addressed) Start: 07/31/24 Expected End: 08/14/24 Mobility Patient will ambulate 100 feet with modified independence and least restrictive device in order to improve safety and independence with mobility. (Progressing) Start: 07/31/24 Expected End: 08/14/24 Patient will ascend and descend 13 stairs with one railing and supervision in order to safely negotiate home. (Not Addressed) Start: 07/31/24 Expected End: 08/14/24 Safety Patient will recall/demonstrate weight bearing and/or ROM restrictions with all functional mobility in order to promote healing and safety with functional tasks. (Progressing) Start: 07/31/24 Expected End: 08/14/24 Transfers Patient will perform bed mobility with modified independence in order to improve independence and prepare for out of bed mobility. (Progressing) Start: 07/31/24 Expected End: 08/14/24 Patient will complete functional transfers with least restrictive device with modified independence in order to prepare for ambulation. (Progressing) Start: 07/31/24 Expected End: 08/14/24 Therapy Time Individual Co-treatment Time In 951 Time Out 1003 Minutes 11 Timed Code Treatment Minutes: 10 Minutes (gait x1) Rayo Joseph PT [facility] Geriatric Medicine Inpatient Consult Service Admission Date: 07/30/2024 Assessment Principal Problem: Adult failure to thrive Plan Falls Debility --contributing factors include medications, COPD, malnutrition, cognitive decline --uses a cane at baseline. --PT and OT eval - current recommendation is SNF --on several medications that can contribute to falls. See below. --Palliative care following - changed from Percocet to Morphine for shortness of breath --ST evaluated - Regular diet, thin liquids. No further ST needs. --Family looking into [place] waiver --08/02: making progress with therapy. Continue plan. Weight loss Severe Malnutrition --poor appetite. Intake better here. --continue Mirtazapine --dietary following --recommend psychiatry outpatient follow up for further review of medications --08/02: stable. Continue plan. Anxiety Depression --Wellbutrin XL 150mg daily - continue at this time. Recommend weaning outpatient. May contribute to weight loss. --Buspirone 15mg BID - Continue. --Mirtazapine 15mg at HS - continue. --Paroxetine 40 mg daily - Risk of anticholinergic side effects (falls, confusion). Recommend slow wean to avoid withdrawal. Decreased to 30 mg daily. Further wean outpatient. --Seroquel 200mg at HS - changed to 50mg HS PRN and will monitor. Concern for fall risk. --Patient previously reported failing trials of Duloxetine and Sertraline. --Takes Sudafed - discussed with patient to avoid --Recommend outpatient Psychiatry follow up. --08/02: Stable, continue plan. Cognitive deficits --patient knowledgeable of her medical history and medications --+ history of cognitive decline at home. + history of decline in ADL's and IADL's - Debility, COPD, medications, and depression also contributing to functional decline. --Head imaging - CT head 04/28/24: no acute process. CT head 09/20/23: Unchanged small area of encephalomalacia in the lateral aspect of the right occipital lobe. --History concerning for baseline cognitive deficits. --Recommend outpatient follow up at [facility] ([facility] for more in depth cognitive evaluation when in usual state of health. 08/02: Stable, continue plan. Chronic pain --Continue Tylenol 650mg BID --Takes Flexeril 5mg - ordered for BID dosing at home (takes occasionally). Recommend avoiding/decreasing use due to fall/confusion risk. --Takes Oxycodone-Acetaminophen 5/325mg at home - reports taking every 6 hours. Currently on Morphine. --Pain controlled --08/02: stable, continue plan. At risk for delirium --Risk factors: pain, advanced age, sensory impairments, acute illness, high risk medications, and baseline cognitive deficits --Encourage PO intake, time up in chair, family visits, supervised ambulation, and sleep hygiene --If agitated, assess for and consider treating for pain --QTc= 439 ms --Continue Seroquel 50 mg at HS PRN --Continue scheduled melatonin at HS --Monitor for constipation/urinary retention - last BM 08/01 --Possible medication contributions: Steroids --08/02: does not appear delirious. Monitor sleep. Continue plan. Follow-up: will follow with you Subjective Chief Complaint: fatigue Geriatrics consulted for "falls at home, failure to thrive" HPI- The patient is known to me. 68 y.o. year-old female with PMH of COPD, cervical cancer, DDD, DJD, Lung nodules, Osteoporosis, Depression, Compression fracture, Vitamin D deficiency, anxiety, presented to [facility] on 07/30/24 with complaints of weight loss and shortness of breath. Admitted with Failure to Thrive, severe protein-calorie malnutrition, closed supracondylar fracture of left humerus, COPD. Ortho evaluated and diagnosed the fracture as subacute from Feb when she had a fall. Placed in long arm cast. Started on steroids for COPD. Pneumonia PCR panel positive for streptococcus agalactiae, Moraxella catarrhalis, Pseudomonas aeruginosa. Interval History: Remains on general medical/surgical floor . -Patient reports she is sleepy today, had interrupted sleep last night. Had trouble breathing yesterday but improved today. Pain controlled. Eating well. Says she has 3 different infections. -Nursing reports no concerns. Seen by PT. Ambulated 35 ft x1. Recommending short term SNF for rehab. Review of Systems Constitutional: Positive for fatigue. Respiratory: Positive for cough and shortness of breath. Cardiovascular: Negative for chest pain and leg swelling. Gastrointestinal: Negative for abdominal pain and constipation. Genitourinary: Negative for difficulty urinating. Musculoskeletal: Positive for gait problem. Neurological: Positive for weakness. Psychiatric/Behavioral: Positive for sleep disturbance. Negative for confusion and dysphoric mood. The patient is not nervous/anxious. Objective BP 123/80 (BP Location: Right arm, Patient Position: Sitting) Pulse 87 Temp 36.5 C (97.7 F) (Temporal) Resp 16 Ht 5' 4" (1.626 m) Wt 89 lb (40.4 kg) SpO2 93% BMI 15.28 kg/m No intake or output data in the 24 hours ending 08/02/24 1318 Wt Readings from Last 3 Encounters: 07/30/24 89 lb (40.4 kg) 04/27/24 108 lb (49 kg) 09/20/23 115 lb (52.2 kg) Current Medications[1] Physical Exam Vitals reviewed. Constitutional: General: She is not in acute distress. Appearance: She is underweight. She is ill-appearing (chronic). Cardiovascular: Rate and Rhythm: Normal rate and regular rhythm. Pulmonary: Effort: Pulmonary effort is normal. No respiratory distress. Breath sounds: Normal breath sounds. Abdominal: General: Bowel sounds are normal. There is no distension. Palpations: Abdomen is soft. Tenderness: There is no abdominal tenderness. Musculoskeletal: Right lower leg: No edema. Left lower leg: No edema. Neurological: Mental Status: She is alert. Psychiatric: Attention and Perception: Attention normal. Mood and Affect: Mood normal. Thought Content: Thought content is not paranoid or delusional. Labs and Imaging: No results found for this or any previous visit (from the past 24 hours). Lab Results Component Value Date TSH 0.28 (L) 07/30/2024 Lab Results Component Value Date [id number] 07/30/2024 Lab Results Component Value Date VITD25 30 09/21/2023 Reviewed: allergies, previous encounters, imaging, active problem lists, medications, and labs [1] Current Facility-Administered Medications: acetaminophen (Tylenol) tablet 650 mg, 650 mg, Oral, q6h PRN OR acetaminophen (Tylenol) suppository 650 mg, 650 mg, Rectal, q6h PRN, Lauren Serna MD acetaminophen (Tylenol) tablet 650 mg, 650 mg, Oral, BID, DB Merrill CNP, 650 mg at 08/02/24 0802 albuterol (2.5 MG/3ML) 0.083% nebulizer solution 2.5 mg, 2.5 mg, Nebulization, q4h PRN, Lauren Serna MD, 2.5 mg at 08/01/242055 aspirin EC tablet 81 mg, 81 mg, Oral, Daily, Lauren Serna MD, 81 mg at 08/02/24 0803 buPROPion XL (Wellbutrin XL) 24 hr tablet 150 mg, 150 mg, Oral, Daily, Lauren Serna MD, 150 mg at 08/02/24 0803 busPIRone (Buspar) tablet 15 mg, 15 mg, Oral, BID, Lauren Serna MD, 15 mg at 08/02/24 0803 calcitonin (Miacalcin) injection 50 Units, 50 Units, IntraMUSCular, Daily, Lauren Serna MD, 50 Units at 08/02/24 1157 cefepime (Maxipime) 2,000 mg in sodium chloride 0.9 % 50 mL IVPB Mini-Bag Plus, 2,000 mg, IntraVENous, q12h, Dejuan Bishop MD, Stopped at 08/02/24 1213 cetirizine (ZyrTEC) tablet 5 mg, 5 mg, Oral, Daily, Dejuan Bishop MD, 5 mg at 08/02/24 0803 cyclobenzaprine (Flexeril) tablet 5 mg, 5 mg, Oral, TID PRN, Lauren Serna MD enoxaparin (Lovenox) syringe 30 mg, 30 mg, SubCUTAneous, Daily, Lauren Serna MD, 30 mg at 08/02/24 0802 fluticasone (Flonase) nasal spray 2 spray, 2 spray, Each Nostril, Daily, Lauren Serna MD, 2 spray at 08/01/24 1347 melatonin tablet 3 mg, 3 mg, Oral, Nightly, Lauren Serna MD, 3 mg at 08/01/242032 mirtazapine (Remeron) tablet 15 mg, 15 mg, Oral, Nightly, Lauren Serna MD, 15 mg at 08/01/242032 mometasone-formoterol (Dulera 200) 200-5 MCG/ACT inhaler 2 puff, 2 puff, Inhalation, BID, Lauren Serna MD, 2 puff at 08/02/24 0806 montelukast (Singulair) tablet 10 mg, 10 mg, Oral, Nightly, Lauren Serna MD, 10 mg at 08/01/242032 morphine (MSIR) tablet 15 mg, 15 mg, Oral, q4h PRN, Imelda Bernard, LAMINATING PRESS OPERATOR - AN/SSN 2 4 OPERATOR, 15 mg at 08/02/24 1156 naloxone (Narcan) injection 0.4 mg, 0.4 mg, IntraVENous, q5 min PRN, Lauren Serna MD ondansetron ODT (Zofran-ODT) disintegrating tablet 4 mg, 4 mg, Oral, q8h PRN OR ondansetron (Zofran) injection 4 mg, 4 mg, IntraVENous, q6h PRN, Lauren Serna MD PARoxetine (Paxil) tablet 30 mg, 30 mg, Oral, q AM, DB Merrill CNP, 30 mg at 08/02/24 0936 polyethylene glycol (PEG) 3350 (Miralax) packet 17 g, 17 g, Oral, Daily PRN, Lauren Serna MD [START ON 08/03/2024] predniSONE (Deltasone) tablet 30 mg, 30 mg, Oral, Daily FOLLOWED BY [START ON 08/05/2024] predniSONE (Deltasone) tablet 20 mg, 20 mg, Oral, Daily FOLLOWED BY [START ON 08/07/2024] predniSONE (Deltasone) tablet 10 mg, 10 mg, Oral, Daily, DB Saldana CNP QUEtiapine (SEROquel) tablet 50 mg, 50 mg, Oral, Nightly PRN, DB Merrill CNP, 50 mg at 08/01/24 2033 sodium chloride ([place]) 0.65 % nasal spray 2 spray, 2 spray, Each Nostril, q2h PRN, Dejuan Bishop MD tiotropium (Spiriva Respimat) 2.5 MCG/ACT inhaler 2 puff, 2 puff, Inhalation, Daily, Lauren Serna MD, 2 puff at 08/02/24 0806 Hospitalist Progress Note 08/02/2024 [phone]: Please page md ([phone]) for patient care issues. [phone]: Please page [facility] night Hospitalist for any issues. Subjective: Admit Date: 07/30/2024 PCP: HERMINIA CASE MD Room#: B2-254/B2-254 B Interval History: Patient is sitting on the bed, still on 5 L nasal cannula saturating well. No signs of respiratory distress noticed Denies any cough or sputum production pain No other significant overnight issues. Adult diet Regular @[id number]@ 24HR INTAKE/OUTPUT: No intake or output data in the 24 hours ending 08/02/24 1255 Past Medical History: Medical History[1] LABS: CBC: Recent Labs 07/30/24 1729 WBC 8.9 RBC 3.58* HGB 11.2* HCT 37.0 MCV 103.4* RDW 13.4 PLT 225 BMP: Recent Labs 07/30/24 1729 NA 144 K 5.0 CL 103 CO2 37* BUN 16 CREATININE 0.63 GLUCOSE 80* CALCIUM 8.8 ANIONGAP 4 LIVER PROFILE: Recent Labs 07/30/24 1729 AST 21 ALT 10 BILITOT 0.2 ALKPHOS 97 PROT 6.5 PT/INR: No results for input(s): "PROTIME", "INR" in the last 72 hours. CARDIAC ENZYMES: No results for input(s): "TROPONINI" in the last 72 hours. Procalcitonin: Lab Results Component Value Date PROCAL 0.03 07/30/2024 COVID-19 PCR: No results for input(s): "COVID19" in the last 72 hours. Objective: Vitals: BP 123/80 (BP Location: Right arm, Patient Position: Sitting) Pulse 87 Temp 36.5 C (97.7 F) (Temporal) Resp 16 Ht 5' 4" (1.626 m) Wt 89 lb (40.4 kg) SpO2 93% BMI 15.28 kg/m Pulse Ox: SpO2 Av.3 % Min: 87 % Max: 95 % Supplemental O2: O2 Flow Rate (L/min): 5 L/min General appearance: No apparent distress, appears stated age and cooperative with exam HEENT: Normal cephalic, atraumatic without obvious deformity. Pupils equal, round, and reactive to light. Extra ocular muscles intact. Conjunctivae/corneas clear. Neck: Supple, with full range of motion. No jugular venous distention. Trachea midline. No lymphadenopathy. Respiratory: Normal respiratory effort. Clear to auscultation, bilaterally without Rales/Wheezes/Rhonchi. Cardiovascular: Regular rate and rhythm with normal S1/S2 without murmurs, rubs or gallops. Abdomen: Soft, non-tender, non-distended with normal bowel sounds. No rebound or guarding. Musculoskeletal: Left upper extremity cast is in place Skin: Skin color, texture, turgor normal. No rashes or lesions. Neurologic: Neurovascularly intact without any focal sensory/motor deficits. Cranial nerves: II-XII intact, grossly non-focal. Medications: Continuous Meds[2] Scheduled Meds[3] Assessment Left supracondylar humerus fracture-mostly subacute from 04/2024. Left lower lobe density-new compared to previous CT scan. Acute hypoxic respiratory failure. Acute COPD exacerbation. Protein calorie malnutrition. History of: Severe COPD-emphysematous lung disease. Chronic respiratory failure on 3 L nasal cannula at baseline. Heavy tobacco smoker-quit 5 years ago-currently continues to vape. Severe protein calorie malnutrition. Severe osteoporosis. Plan: Orthopedics evaluated the patient, given her severe osteoporosis-not a surgical candidate. long-arm cast placed on 08/02. Continue symptomatic treatment. Currently patient is on a tapering dose of prednisone. Continue breathing treatments both scheduled and as needed. Pneumonia PCR panel growing Pseudomonas and Streptococcus and Moraxella-started patient on cefepime on 08/01 Pulmonary is following and managing COPD, also recommended follow-up imaging with a CT scan of the chest in short-term to follow-up on left lower lobe density. Still on 5 L nasal cannula-continue to wean oxygen PFTs outpatient. Protein supplements ordered. Home medications reviewed and resumed appropriately Follow-up CBC BMP ordered DVT prophylaxis: Lovenox daily. Disposition: PT OT recommending [facility] facility. Possible discharge in next 1 to 2 days. Pending Long arm cast placement -am labs, replace lytes prn -increase activity -DVT prophylaxis: [] Lovenox [] Heparin [] SCDs [x] Encourage ambulation [] Already on Anticoagulation Advance Directive: DNR-CCA Discharge planning: JEZD Dejuan Bishop MD Division of Hospitalist Medicine Inpatient Medical Services/[facility]: [phone] Acute hypoxic respiratory failure [1] Past Medical History: Diagnosis Date Abnormal stress test Acute exacerbation of chronic obstructive pulmonary disease (HCC) 04/12/2018 Allergic rhinitis Arthritis Asthma Bronchitis Cancer (CMS/HCC) (HCC) skin Cervical cancer (HCC) Chest pain COPD (chronic obstructive pulmonary disease) (HCC) USE OXYGEN 3 L AT NIGHT DDD (degenerative disc disease), cervical Defect, retina, with detachment right DJD (degenerative joint disease), lumbar Emphysema lung (HCC) Former smoker Hematuria SCHEDULED FOR THE PROCEDURE /SURGERY ON 02/11/2017 Hypokalemia Lung nodules Near syncope 09/19/2023 Osteoporosis Palpitations Pneumonia Recurrent major depression (HCC) Sciatica Thoracic compression fracture (HCC) Vitamin D deficiency [2] [3] acetaminophen, 650 mg, Oral, BID aspirin, 81 mg, Oral, Daily buPROPion XL, 150 mg, Oral, Daily busPIRone, 15 mg, Oral, BID calcitonin, 50 Units, IntraMUSCular, Daily cefepime, 2,000 mg, IntraVENous, q12h cetirizine, 5 mg, Oral, Daily enoxaparin, 30 mg, SubCUTAneous, Daily fluticasone, 2 spray, Each Nostril, Daily melatonin, 3 mg, Oral, Nightly mirtazapine, 15 mg, Oral, Nightly mometasone-formoterol, 2 puff, Inhalation, BID montelukast, 10 mg, Oral, Nightly PARoxetine, 30 mg, Oral, q AM [START ON 08/03/2024] predniSONE, 30 mg, Oral, Daily Followed by [START ON 08/05/2024] predniSONE, 20 mg, Oral, Daily Followed by [START ON 08/07/2024] predniSONE, 10 mg, Oral, Daily tiotropium, 2 puff, Inhalation, Daily Images from the original note were not included. OCCUPATIONAL THERAPY [facility] Treatment Note Name/MRN: Gonzalo Deluca ([id number]) Date of : 1955 Age: 68 y.o. Room[facility]: [facility] Visit #: 1 out of 6 visits Discharge Recommendation: Snf Facility, Continue to assess pending progress Equipment Needed: No Prior Level of Function Prior Level of ADL Function: Independent Prior Level of Mobility: Independent; Device: Straight Cane Prior Level of Transfers: Independent Assessment Patient seen for OT treatment this date focusing on functional transfers/mobility without a device. She declines use of cane when offered at this time. She demos mild instability at this time remains a high falls risk this date. Patient demos increased difficulty managing OT lines at this time. Increased shortness of breath noted at this time however SpO2 noted to remain within functional limits. Cueing provided for pursed lip breathing technique with good teach back noted at this time. She will continue benefit from skilled OT services to improve her balance, endurance, and safety at this time. Recommend plan discharge for SNF pending progress. Subjective Pleasant cooperative. Okay to see per RN. Agreeable to therapy treatment. Pain: Pt denies any current pain. Medical Precautions: No active isolations Proper PPE donned/doffed in accordance with facility standards. Fall Risk: Webb Fall Risk Score: 70 (Low Risk) Webb Fall Risk Score: 70 (High Risk) Precautions/Restrictions: Braces or Orthoses: L UE splint - long cast to by completed this admission by Dr. Gresahm Left UE Weight Bearing: Non-Weight Bearing Lines/Drains/Airways: O2 Family/Caregiver Present: none Objective ADLs Pt completed simulated toileting activity at bathroom level this date however declines formal need to complete. No difficulty noted with clothing management or functional reach or CHANEL care. Patient however demos increased instability at this time and is a high fall risk this date. Bed Mobility Supine to sit: SBA Sit to supine: SBA Scooting: SBA HOB elevated. Increased time to complete. Denies dizziness with positional changes. Increased reliance on bed rails to complete. No physical assist for BLE management or trunk control. Transfers/Mobility Sit to stand: Contact Guard Stand to sit: Contact Guard Toilet: Contact Guard Functional mobility: Contact Guard Patient pleated sit to stands x 2 this date. On x 1 from edge of bed and x 1 from left level toilet this date. Contact-guard assist overall for stability. Good hand placement for push up from/reach back for seated surfaces with good lower extremity management noted for proper base support. Denies dizziness with positional changes at this time. Once in standing patient with no true loss of balance however noted general instability throughout. Remains a high fall risk during completion. She was able to complete short functional home distances in the hallway with contact-guard assist overall increased difficulty managing O2 line this date. Increased shortness of breath noted at this time with SpO2 remaining within functional limits throughout. She completed mobility to the bathroom and was able to complete toilet transfer with contact-guard assist overall and use of grab bars for safety. Device(s) used: Front wheeled walker Plan Continue acute OT per plan of care. Safety/Education Safety Safety Devices in place: All fall risk precautions in place, call light within reach, left in bed, gait belt, patient at risk for falls, nurse notified, and no alarms engaged upon entry Restraints: No Education Education Given To: patient Education Provided: Plan of Care, ADL Adaptive Strategies, Transfer Training, Equipment, Fall Prevention Education, Discharge Recommendations, and Benefits of Increasing Activity Education Method: Verbal, Demonstration, and Teach Back Barriers to Learning: None Education Outcome: Verbalized Understanding, Demonstrated Understanding, and Continued Education Needed AM-PAC AM-PAC Inpatient Daily Activity Raw Score: 18 ADL Inpatient CMS G-Code Modifier: CK Goals Patient Stated Goal: none stated at this time. Encounter Problems Encounter Problems (Active) Balance Patient will maintain dynamic standing balance for 3 minutes with modified independence in order to demonstrate decreased risk of falling. (Progressing) Start: 08/01/24 Expected End: 08/07/24 Dressings Lower Extremities Patient will dress lower body with mod I (Not Addressed) Start: 08/01/24 Expected End: 08/07/24 Mobility pt will perform functional mobility and transfers with Mod I (Progressing) Start: 08/01/24 Expected End: 08/07/24 OT Misc pt will use EC/breathing techniques to maintain Spo2 > 90% during functional activities (Progressing) Start: 08/01/24 Expected End: 08/07/24 Toileting Patient will complete toileting tasks at standard toilet with modified independence. (Slowly Progressing) Start: 08/01/24 Expected End: 08/07/24 Therapy Time Individual Co-treatment Time In 0904 Time Out 0919 Minutes 15 Darius Worrell OT Portions of the information within this encounter were entered using an electronic dictation system. Best attempts were made to edit/proofread the information prior to note completion. Despite the review of information, some errors may remain. If there are questions related to the information contained within the note please contact the signing provider directly. H: Recent Labs 07/30/24 1729 HGB 11.2* WBC 8.9 VS: Blood pressure 131/88, pulse 95, temperature 36 C (96.8 F), temperature source Temporal, resp. rate 22, height 1.626 m (5' 4"), weight 40.4 kg (89 lb), SpO2 95%. No complaints or overnight issues. PE: NVI LUE Left elbow benign -- splint removed. Fx appears chronic. Xray: N/a IMP: Left supracondylar humerus fx -- Apr 27 PLAN: Suspect this fx will go on to nonunion giving no healing today and patient's poor metabolic state. Long arm cast applied. Proceed with discharge. Lab Results Component Value Date WBC 8.9 07/30/2024 HGB 11.2 (L) 07/30/2024 HCT 37.0 07/30/2024 PLT 225 07/30/2024 Images from the original note were not included. [facility] [place] [address] [place], [place] [id number] Patient - Gonzalo Deluca, Age - 68 y.o. - 1955 Room Number - [id number]/[id number] B Consulting - Dejuan Bishop MD Primary Care Physician - [phone] Date of Admission - 07/30/2024 4:40 PM Hospital Day - 1 Chief Complaint Gonzalo Deluca is a 68 y.o. female who pulmonary is following for Emphysema/ lung density/CRF Interval History Feeling better today currently on 5 L [place] saturation 93 to 95% Sputum pneumonia PCR positive for Enterococcus agalactiae, Moraxella catarrhalis, Pseudomonas aeruginosa, patient has been placed on cefepime Tolerating well so far Appetite slowly improving No chest pain no fever no chill no rigor HPI Gonzalo Deluca is a 68 y.o. female admitted for Weight loss failure to thrive Patient with a history of severe underlying emphysematous lung disease, chronic respiratory failure on home oxygen heavy tobacco use quit 6 years ago continues to vape lung nodules in the past thoracic compression fracture admitted with main complaint of losing weight almost 40 pounds in recent months poor appetite failure to thrive Underwent CT chest which did show severe emphysema Left lower lobe density, new in comparison to previous CAT scan Favor tiny lung nodule both lower lobes Patient having cough with phlegm however having difficulty coughing up the phlegm Denies any fever chills Rigor Shortness of breath more recently Denies any hemoptysis hematemesis melena hematuria Apparently not seeing any staff genetic counselor recently Was on Dulera Spiriva and rescue inhaler compliant with the medication Not on NIV No PFT available in [facility] All other systems reviewed Objective Vitals: BP 131/88 (BP Location: Right arm, Patient Position: Sitting) Pulse 95 Temp 36 C (96.8 F) (Temporal) Resp 22 Ht 5' 4" (1.626 m) Wt 89 lb (40.4 kg) SpO2 95% BMI 15.28 kg/m Pulse Ox: SpO2 Av.5 % Min: 87 % Max: 95 % Supplemental O2: O2 Flow Rate (L/min): 5 L/min I/O 24HR INTAKE/OUTPUT: No intake or output data in the 24 hours ending 08/02/24 0719 Exam General appearance: Sitting by the edge of the bed awake and alert no acute distress still hypoxic requiring up to 5 L nasal cannula Oxygen saturation 94% HEENT: Normocephalic, atraumatic. Pupils equil and round, External ear normal, conjunctivae normal, negative for scleral icterus. No congestion. Neck: ROM normal, supple, trachea midline. No lymphadenopathy Cardiovascular: Regular rate and rhythm. Heart sounds normal. Negative for murmur, friction rub or gallop. Pulmonary: Effort normal, no respiratory distress/conversational dyspnea Increased AP diameter of the chest Markedly decreased breath sound Few basilar rales No wheezing No pleural rub Abdomen: Soft, non distended, non tender, bowel sounds normal. No palpable masses. No Hepatomegaly Musculoskeletal: ROM normal, Negative for swelling, tenderness or deformity. Skin: Warm, dry. Skin color, texture, turgor normal. Negative for rashes or lesions. Extremities: No clubbing, cyanosis, or extremity edema Left upper extremity in splint Neurological: No focal deficits. Alert and oriented x 3. Cranial nerves II-XII are intact Lymphatics: No cervical or axillary lymphadenopathy Psychiatric: Mood, behavior, thought content normal. Cooperative with exam. Medications Current Medications Scheduled Meds[1] PRN Mediations PRN Meds[2] IV Drips/Infusions Continuous Meds[3] Labs CBC Results from last 7 days Lab Units 07/30/24 1729 WBC AUTO 10*3/uL 8.9 HEMOGLOBIN g/dL 11.2* HEMATOCRIT % 37.0 PLATELETS 10*3/uL 225 BMP: Results from last 7 days Lab Units 07/30/24 1729 SODIUM mmol/L 144 POTASSIUM mmol/L 5.0 CHLORIDE mmol/L 103 CO2 mmol/L 37* BUN mg/dL 16 CREATININE mg/dL 0.63 GLUCOSE mg/dL 80* CALCIUM mg/dL 8.8 ABG: LIVER PROFILE Results from last 7 days Lab Units 07/30/24 1729 ALK PHOS U/L 97 BILIRUBIN TOTAL mg/dL 0.2 BILIRUBIN DIRECT mg/dL 0.1 PROTEIN TOTAL g/dL 6.5 ALT U/L 10 AST U/L 21 INR PTT No results found for: "PTT" Cultures Radiology Exam Date/Time: 07/31/2024 15:25 Procedure: CT CHEST ABDOMEN PELVIS W CONTRAST Ordering Provider: SERNA DANIEL Reason For Exam: unexplained weight loss EXAMINATION: CT CHEST ABDOMEN PELVIS W CONTRAST CLINICAL HISTORY: unexplained weight loss COMPARISON: 10/16/2023 TECHNIQUE: Contiguous axial images were obtained through the chest abdomen and pelvis from the level of the thoracic inlet through the pubic symphysis following administration of intravenous contrast. Dose reduction was employed with automated exposure control. FINDINGS: Cardiovasculature: Heart size is normal. Left upper extremity PICC line with tip in the SVC. Normal caliber thoracic aorta. No central pulmonary emboli. Mediastinum/Pericardium: Small amount of pericardial fluid, similar to the prior. Lymph Nodes: No thoracic lymphadenopathy is evident Pleura: Unremarkable Central Airways: No airway nodules. Lungs: Severe diffuse emphysematous changes bilaterally. There is a new peripheral wedge-shaped airspace opacity posteriorly in the left lower lobe. A few tiny centrilobular nodules are also noted in both lower lobes. No other sites of airspace consolidation. Hepatobiliary: No suspicious hepatic lesions. The gallbladder is contracted. Pancreas: Unremarkable Spleen: Unremarkable Adrenal Glands: Unremarkable Kidneys, ureters, and bladder: No calculi or hydroureteronephrosis. Abdominal and pelvic vasculature: Unremarkable GI tract: No evidence of obstruction. The appendix is not visualized. Peritoneum and retroperitoneum: No free fluid or free air is noted. Lymph Nodes: No abdominal or pelvic lymphadenopathy is evident. Pelvis: Unremarkable Visualized musculoskeletal structures: Remote ORIF of the left hip. Chronic osteoporotic compression fractures of the T6-T9, T11, and L2-L4 vertebral bodies. No destructive bone lesion or acute fractures. IMPRESSION: 1. New wedge-shaped subpleural airspace opacity in the left lower lobe is most likely either focal pneumonia or a lung infarct. Neoplasm is unlikely, but follow-up to resolution is recommended. 2. No acute findings in the abdomen or pelvis. 3. Multiple chronic osteoporotic compression fractures in the thoracic and lumbar spine. 4. Severe pulmonary emphysema. 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 Patient emphysema clinically as well as radiologically appears to be severe no current PFT available on epic 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 in weight loss Left lower lobe density pneumonia versus atelectasis favor later Sputum culture Incentive spirometry Will need follow-up CT chest short-term for left lower lobe density Continue bronchodilator therapy patient was on Dulera and Spiriva Tapering dose of steroid we are going slow tapering dose on prednisone that will also help her appetite Complete pulmonary function test as an outpatient Follow-up with pulmonary office postdischarge As noted above patient having placed on cefepime 2 g every 12 for polymicrobial aspiration pneumonia Still hypoxic requiring up to 5 L nasal cannula, titrate FiO2 to keep saturation 90 to 92% Will switch IV steroid to p.o. prednisone Continue bronchodilator therapy Advance Directive: DNR-CCA Case discussed with nurse and patient. Questions and concerns addressed. Total time 50 minutes on this day of encounter includes counseling, coordinating plan of care, record and documentation review before and after visit including documentation and time not explicitly included on EMR time stamp for accounting for open encounter. Portions of the information within this encounter were entered using an electronic dictation system. Best attempts were made to edit/proofread the information prior to note completion. Despite the review of information, some errors may remain. If there are questions related to the information contained within the note please contact the signing provider directly. [1] acetaminophen, 650 mg, Oral, BID aspirin, 81 mg, Oral, Daily buPROPion XL, 150 mg, Oral, Daily busPIRone, 15 mg, Oral, BID calcitonin, 50 Units, IntraMUSCular, Daily cefepime, 2,000 mg, IntraVENous, q12h cetirizine, 5 mg, Oral, Daily enoxaparin, 30 mg, SubCUTAneous, Daily fluticasone, 2 spray, Each Nostril, Daily melatonin, 3 mg, Oral, Nightly methylPREDNISolone sod suc (PF), 20 mg, IntraVENous, q12h mirtazapine, 15 mg, Oral, Nightly mometasone-formoterol, 2 puff, Inhalation, BID montelukast, 10 mg, Oral, Nightly PARoxetine, 30 mg, Oral, q AM tiotropium, 2 puff, Inhalation, Daily [2] PRN medications: acetaminophen OR acetaminophen, albuterol, cyclobenzaprine, morphine, naloxone, ondansetron ODT OR ondansetron, polyethylene glycol (PEG) 3350, QUEtiapine, sodium chloride [3] [4] Patient Active Problem List Diagnosis Poor venous access Other specified complication of vascular prosthetic devices, implants and grafts, initial encounter ([facility]) Chronic back pain COPD (chronic obstructive pulmonary disease) ([facility]) DDD (degenerative disc disease), cervical Leukocytosis Malignant neoplasm of exocervix ([facility]) Recurrent major depression ([facility]) Pulmonary nodule S/P hysterectomy Sciatica Shortness of breath Supplemental oxygen dependent PNA (pneumonia) H/O: CVA (cerebrovascular accident) Former smoker Nondisplaced fracture of neck of left femur ([facility]) Lumbar compression fracture, closed, initial encounter ([facility]) Severe malnutrition (CMS/HCC) ([facility]) Falls frequently Unintentional weight loss Debility PFO (patent foramen ovale) Adult failure to thrive Hospitalist Progress Note 08/01/[phone]: Please page me ([phone]) for patient care issues. [phone]: Please page [facility] night Hospitalist for any issues. Subjective: Admit Date: 07/30/2024 PCP: HERMINIA CASE MD Room#: B2-254/B2-254 B Interval History: Patient is sitting on the chair, denies any chest pain shortness of breath or palpitations Denies any upper extremity pain. No other significant overnight issues. Adult diet Regular @[id number]@ 24HR INTAKE/OUTPUT: Intake/Output Summary (Last 24 hours) at 08/01/2024 175 Last data filed at 07/31/2024 1759 Gross per 24 hour Intake 125 ml Output -- Net 125 ml Past Medical History: Medical History[1] LABS: CBC: Recent Labs 07/30/24 1729 WBC 8.9 RBC 3.58* HGB 11.2* HCT 37.0 MCV 103.4* RDW 13.4 PLT 225 BMP: Recent Labs 07/30/24 1729 NA 144 K 5.0 CL 103 CO2 37* BUN 16 CREATININE 0.63 GLUCOSE 80* CALCIUM 8.8 ANIONGAP 4 LIVER PROFILE: Recent Labs 07/30/24 1729 AST 21 ALT 10 BILITOT 0.2 ALKPHOS 97 PROT 6.5 PT/INR: No results for input(s): "PROTIME", "INR" in the last 72 hours. CARDIAC ENZYMES: No results for input(s): "TROPONINI" in the last 72 hours. Procalcitonin: Lab Results Component Value Date PROCAL 0.03 07/30/2024 COVID-19 PCR: No results for input(s): "COVID19" in the last 72 hours. Objective: Vitals: BP 114/79 Pulse 91 Temp 36.9 C (98.5 F) (Temporal) Resp 18 Ht 5' 4" (1.626 m) Wt 89 lb (40.4 kg) SpO2 90% BMI 15.28 kg/m Pulse Ox: SpO2 Av.3 % Min: 90 % Max: 96 % Supplemental O2: O2 Flow Rate (L/min): 5 L/min General appearance: No apparent distress, appears stated age and cooperative with exam HEENT: Normal cephalic, atraumatic without obvious deformity. Pupils equal, round, and reactive to light. Extra ocular muscles intact. Conjunctivae/corneas clear. Neck: Supple, with full range of motion. No jugular venous distention. Trachea midline. No lymphadenopathy. Respiratory: Normal respiratory effort. Clear to auscultation, bilaterally without Rales/Wheezes/Rhonchi. Cardiovascular: Regular rate and rhythm with normal S1/S2 without murmurs, rubs or gallops. Abdomen: Soft, non-tender, non-distended with normal bowel sounds. No rebound or guarding. Musculoskeletal: Left upper extremity cast is in place Skin: Skin color, texture, turgor normal. No rashes or lesions. Neurologic: Neurovascularly intact without any focal sensory/motor deficits. Cranial nerves: II-XII intact, grossly non-focal. Medications: Continuous Meds[2] Scheduled Meds[3] Assessment Left supracondylar humerus fracture-mostly subacute from 04/2024. Left lower lobe density-new compared to previous CT scan. Acute COPD exacerbation. Protein calorie malnutrition. History of: Severe COPD-emphysematous lung disease. Chronic respiratory failure on 3 L nasal cannula at baseline. Heavy tobacco smoker-quit 5 years ago-currently continues to vape. Severe protein calorie malnutrition. Severe osteoporosis. Plan: Orthopedics evaluated the patient, given her severe osteoporosis-not a surgical candidate. Planning for long-arm cast tomorrow. Continue symptomatic treatment. Patient is on IV Solu-Medrol, possible transition to prednisone in next 1 to 2 days, continue breathing treatments both scheduled and as needed. Pulmonary is following and managing COPD, also recommended follow-up imaging with a CT scan of the chest in short-term to follow-up on left lower lobe density. PFTs outpatient. Protein supplements ordered. Home medications reviewed and resumed appropriately Follow-up CBC BMP ordered DVT prophylaxis: Lovenox daily. Disposition: PT OT recommending [facility] facility. Possible discharge in next 1 to 2 days. Pending Long arm cast placement -am labs, replace lytes prn -increase activity -DVT prophylaxis: [] Lovenox [] Heparin [] SCDs [x] Encourage ambulation [] Already on Anticoagulation Advance Directive: DNR-CCA Discharge planning: TBD Dejuan Bishop MD Division of Hospitalist Medicine Inpatient Medical Services/[facility]: [phone] [1] Past Medical History: Diagnosis Date Abnormal stress test Acute exacerbation of chronic obstructive pulmonary disease (HCC) 04/12/2018 Allergic rhinitis Arthritis Asthma Bronchitis Cancer (CMS/HCC) (HCC) skin Cervical cancer (HCC) Chest pain COPD (chronic obstructive pulmonary disease) (HCC) USE OXYGEN 3 L AT NIGHT DDD (degenerative disc disease), cervical Defect, retina, with detachment right DJD (degenerative joint disease), lumbar Emphysema lung (HCC) Former smoker Hematuria SCHEDULED FOR THE PROCEDURE /SURGERY ON 02/11/2017 Hypokalemia Lung nodules Near syncope 09/19/2023 Osteoporosis Palpitations Pneumonia Recurrent major depression (HCC) Sciatica Thoracic compression fracture (HCC) Vitamin D deficiency [2] [3] acetaminophen, 650 mg, Oral, BID aspirin, 81 mg, Oral, Daily buPROPion XL, 150 mg, Oral, Daily busPIRone, 15 mg, Oral, BID calcitonin, 50 Units, IntraMUSCular, Daily enoxaparin, 30 mg, SubCUTAneous, Daily fluticasone, 2 spray, Each Nostril, Daily melatonin, 3 mg, Oral, Nightly methylPREDNISolone sod suc (PF), 20 mg, IntraVENous, q12h mirtazapine, 15 mg, Oral, Nightly mometasone-formoterol, 2 puff, Inhalation, BID montelukast, 10 mg, Oral, Nightly [START ON 08/02/2024] PARoxetine, 30 mg, Oral, q AM tiotropium, 2 puff, Inhalation, Daily Images from the original note were not included. PHYSICAL THERAPY [facility] Treatment Note Name/MRN: Gonzalo Deluca ([id number]) Date of : 1955 Age: 68 y.o. Room/Bed: [facility] B Visit #: 1 out of 7 visits Discharge Recommendation: Continue to assess pending progress, Snf Facility Other: TBD at next level of care, pt owns a cane Prior Level of Function Prior Level of ADL Function: Independent Prior Level of Mobility: Independent; Device: Straight Cane Prior Level of Transfers: Independent Assessment Pt tolerated session fair. Pt greatly limited by SOB. Pt able to complete some seated exercises followed by ambulation. Pts O2 dropped to 77% during ambulation. Increased time taken after ambulation for pt to sit and focus on breathing. After a few minutes of sitting pts O2 got back to 85-87%. Pt will continue to benefit from skilled PT interventions including strength and gait training. Continue to recommend SNF pending pts activity tolerance. Subjective Pt agreeable to therapy. Observation: sitting EOB, O2 in tact Vitals: O2 78-92% throughout session. Pain: Pt denies any current pain. Medical Precautions: No active isolations Proper PPE donned/doffed in accordance with facility standards. Fall Risk: Webb Fall Risk Score: 70 (Low Risk) Webb Fall Risk Score: 70 (High Risk) Precautions/Restrictions: Braces or Orthoses: L UE splint - long cast to by completed this admission by Dr. Gresham Left UE Weight Bearing: Non-Weight Bearing Lines/Drains/Airways: O2 Overall Cognitive Status: WFL Overall Orientation Status: Oriented x4 Family/Caregiver Present: none Objective Transfers/Mobility Sit to stand: SBA Stand to sit: SBA X1 from EOB Pt cued for correct hand and foot placement. Fair teach back. Pt demos fast, impulsive movements. Pt mildly unsteady on feet throughout but no true LOB. Pt demos good eccentric control. Device(s) used: None Ambulation Ambulation 1 Assistive device(s) used: Portable O2 tank handle in RUE Assist level: Contact Guard, Min Assist Distance (ft): 40ft Quality of gait: No LOB, reciprocal stepping, B foot clearance, uneven step length, wide SADIE, slow lauren, path deviations, instability through all phases Pt demos slightly flexed forward posture with uneven, reciprocal steps and good foot clearance. Pt demos erratic movements and appears very unsteady on feet. CGA to ensure pt safety with moments of min assist required to keep pt balanced. Pt experienced multiple path deviations. Pt cued to slow movements, fair teach back. Pt O2 dropped to 78% during ambulation, pt taken back to bed, several minutes taken for O2 to get back up into upper 80s. Exercises Exercises Gluteal Sets: seated x10 BLE Hip Flexion: seated x10 BLE Knee Long Arc Quad: seated x10 BLE Plan Continue acute PT per plan of care. Safety/Education Safety Safety Devices in place: All fall risk precautions in place, call light within reach, gait belt, patient at risk for falls, nurse notified, and patient left sitting EOB Restraints: No Education Education Given To: patient and daughter Education Provided: PT Role, PT Goals, Gait Training, Plan of Care, Home Exercise Program, Transfer Training, and Benefits of Increasing Activity Education Method: Verbal, Demonstration, and Teach Back Barriers to Learning: None Education Outcome: Verbalized Understanding and Demonstrated Understanding Outcome Measures AM-PAC AM-PAC Inpatient Mobility Raw Score (No Stairs) : 15 JH-HLM JH-HLM Score: Walked 25 ft or more (i.e. walked outside of room) Goals Patient Stated Goal: Patient states she wants to get stronger. Encounter Problems Encounter Problems (Active) Balance Patient will maintain dynamic standing balance for 5 minutes with modified independence in order to demonstrate decreased risk of falling. (Progressing) Start: 07/31/24 Expected End: 08/14/24 Exercise Patient will complete lower extremity exercises for 1-2 sets / 10 reps in order to improve strength and activity tolerance for mobility. (Progressing) Start: 07/31/24 Expected End: 08/14/24 Mobility Patient will ambulate 100 feet with modified independence and least restrictive device in order to improve safety and independence with mobility. (Progressing) Start: 07/31/24 Expected End: 08/14/24 Patient will ascend and descend 13 stairs with one railing and supervision in order to safely negotiate home. (Not Addressed) Start: 07/31/24 Expected End: 08/14/24 Safety Patient will recall/demonstrate weight bearing and/or ROM restrictions with all functional mobility in order to promote healing and safety with functional tasks. (Progressing) Start: 07/31/24 Expected End: 08/14/24 Transfers Patient will perform bed mobility with modified independence in order to improve independence and prepare for out of bed mobility. (Not Addressed) Start: 07/31/24 Expected End: 08/14/24 Patient will complete functional transfers with least restrictive device with modified independence in order to prepare for ambulation. (Progressing) Start: 07/31/24 Expected End: 08/14/24 Therapy Time Individual Co-treatment Time In 1039 Time Out 1048 Minutes 9 Timed Code Treatment Minutes: 8 Minutes (1 gait) Lucía Christianson RESISTANCE BRAZER Cosigned by Jennifer Esparza PT at 08/01/2024 4:08 PM EDT [facility] Geriatric Medicine Inpatient Consult Service Admission Date: 07/30/2024 Assessment Principal Problem: Adult failure to thrive Plan Falls Debility --contributing factors include medications, COPD, malnutrition, cognitive decline --uses a cane at baseline. --PT and OT eval - current recommendation is SNF --09/21/23 Vit D 30 -- TSH 0.28 --on several medications that can contribute to falls. See below. --Palliative care following - changed from Percocet to Morphine for shortness of breath --ST evaluated - Regular diet, thin liquids. No further ST needs. --Family looking into [place] waiver Weight loss Severe Malnutrition --poor appetite. Intake better here. --continue Mirtazapine --dietary following --recommend psychiatry outpatient follow up for further review of medications Anxiety Depression --Wellbutrin XL 150mg daily - continue at this time. Recommend weaning outpatient. May contribute to weight loss. --Buspirone 15mg BID - Continue. --Mirtazapine 15mg at HS - continue. --Paroxetine 40 mg daily - Risk of anticholinergic side effects (falls, confusion). Recommend slow wean to avoid withdrawal. Recommend decrease to 30 mg daily. Further wean outpatient. --Seroquel 200mg at HS - changed to 50mg HS PRN and will monitor. Concern for fall risk. -Slept well last night with Seroquel 50mg. --Patient previously reported failing trials of Duloxetine and Sertraline. --Takes Sudafed - discussed with patient to avoid --Recommend outpatient Psychiatry follow up. Cognitive deficits --patient knowledgeable of her medical history and medications --+ history of cognitive decline at home. + history of decline in ADL's and IADL's Debility, COPD, medications contributing --Head imaging - CT head 04/28/24: no acute process. CT head 09/20/23: Unchanged small area of encephalomalacia in the lateral aspect of the right occipital lobe. --History concerning for baseline cognitive deficits. --Recommend outpatient follow up at [facility] for more in depth cognitive evaluation when in usual state of health. Chronic pain --Continue Tylenol 650mg BID --Takes Flexeril 5mg - ordered for BID dosing at home. Recommend avoiding/decreasing use due to fall/confusion risk. Reports taking occasionally at home. --Takes Oxycodone-Acetaminophen 5/325mg at home - reports taking every 6 hours. Currently on Morphine. --Pain controlled At risk for delirium --Risk factors: pain, advanced age, sensory impairments, acute illness, high risk medications, and baseline cognitive deficits --Encourage PO intake, time up in chair, family visits, supervised ambulation, and sleep hygiene --If agitated, assess for and consider treating for pain --QTc= 439 ms --Takes Seroquel 200mg at HS at home. Resumed at lower dose 50mg HS PRN. --Continue scheduled melatonin at HS --Monitor for constipation/urinary retention - last BM 08/01 --Possible medication contributions: Steroids Follow-up: will follow with you Subjective Chief Complaint: weakness Geriatrics consulted for "falls at home, failure to thrive" HPI- The patient is known to me. 68 y.o. year-old female with PMH of COPD, cervical cancer, DDD, DJD, Lung nodules, Osteoporosis, Depression, Compression fracture, Vitamin D deficiency, anxiety, presented to [facility] 07/[facility]24 with complaints of weight loss and shortness of breath. Admitted with Failure to Thrive, severe protein-calorie malnutrition, close supracondylar fracture of left humerus, COPD. Ortho evaluated and diagnosed the fracture as subacute from Fe when she had a fall. Long arm cast will be placed and she will be nonweightbearing. Started on steroids for COPD. Interval History: Remains on general medical/surgical floor . -Patient reports feeling better. Slept well last night. Eating well. BM today. -Nursing reports no concerns. Seen by PT. Ambulated 40 ft CGA- min assist Recommending short term SNF for rehab. Review of Systems Respiratory: Positive for cough and shortness of breath. Cardiovascular: Negative for chest pain and leg swelling. Gastrointestinal: Negative for abdominal pain, constipation, diarrhea and nausea. Genitourinary: Negative for difficulty urinating and dysuria. Musculoskeletal: Positive for arthralgias and gait problem. Neurological: Positive for weakness. Negative for tremors. Psychiatric/Behavioral: Negative for confusion, dysphoric mood and sleep disturbance. The patient is not nervous/anxious. Objective BP 114/79 Pulse 91 Temp 36.9 C (98.5 F) (Temporal) Resp 18 Ht 5' 4" (1.626 m) Wt 89 lb (40.4 kg) SpO2 90% BMI 15.28 kg/m Intake/Output Summary (Last 24 hours) at 08/01/2024 1031 Last data filed at 07/31/2024 1759 Gross per 24 hour Intake 325 ml Output -- Net 325 ml Wt Readings from Last 3 Encounters: 07/30/24 89 lb (40.4 kg) 04/27/24 108 lb (49 kg) 09/20/23 115 lb (52.2 kg) Current Medications[1] Physical Exam Vitals reviewed. Constitutional: General: She is not in acute distress. Appearance: She is underweight. She is ill-appearing (chronic). Cardiovascular: Rate and Rhythm: Normal rate and regular rhythm. Pulmonary: Effort: Pulmonary effort is normal. No respiratory distress. Breath sounds: Normal breath sounds. Abdominal: General: Bowel sounds are normal. There is no distension. Palpations: Abdomen is soft. Tenderness: There is no abdominal tenderness. Musculoskeletal: Right lower leg: No edema. Left lower leg: No edema. Neurological: Mental Status: She is alert. Psychiatric: Attention and Perception: Attention normal. Mood and Affect: Mood normal. Thought Content: Thought content is not paranoid or delusional. Labs and Imaging: Recent Results (from the past 24 hours) Respiratory Pathogens Panel by PCR Collection Time: 07/31/24 11:58 AM Specimen: Nasopharynx; Swab Result Value Ref Range SARS-CoV-2 Not Detected Not Detected Adenovirus Not Detected Not Detected Coronavirus HKU1 Not Detected Not Detected Coronavirus NL63 Not Detected Not Detected Coronavirus 229E Not Detected Not Detected Coronavirus OC43 Not Detected Not Detected Human Metapneumovirus Not Detected Not Detected Human Rhinovirus/Enterovirus Not Detected Not Detected Influenza A Not Detected Not Detected Influenza B Not Detected Not Detected Parainfluenza 1 Not Detected Not Detected Parainfluenza 2 Not Detected Not Detected Parainfluenza 3 Not Detected Not Detected Parainfluenza 4 Not Detected Not Detected Respiratory Syncytial Virus Not Detected Not Detected Bordetella pertussis Not Detected Not Detected Bordetella parapertussis Not Detected Not Detected Chlamydia pneumoniae Not Detected Not Detected Mycoplasma pneumoniae Not Detected Not Detected Lab Results Component Value Date TSH 0.28 (L) 07/30/2024 Lab Results Component Value Date [id number] 07/30/2024 Lab Results Component Value Date VITD25 30 09/21/2023 Reviewed: allergies, previous encounters, imaging, active problem lists, medications, and labs [1] Current Facility-Administered Medications: acetaminophen (Tylenol) tablet 650 mg, 650 mg, Oral, q6h PRN OR acetaminophen (Tylenol) suppository 650 mg, 650 mg, Rectal, q6h PRN, Lauren Serna MD acetaminophen (Tylenol) tablet 650 mg, 650 mg, Oral, BID, DB Merrill CNP, 650 mg at 08/01/24 0840 albuterol (2.5 MG/3ML) 0.083% nebulizer solution 2.5 mg, 2.5 mg, Nebulization, q4h PRN, Lauren Serna MD, 2.5 mg at 07/31/242008 aspirin EC tablet 81 mg, 81 mg, Oral, Daily, Lauren Serna MD, 81 mg at 08/01/24 0840 buPROPion XL (Wellbutrin XL) 24 hr tablet 150 mg, 150 mg, Oral, Daily, Lauren Serna MD, 150 mg at 08/01/24 0840 busPIRone (Buspar) tablet 15 mg, 15 mg, Oral, BID, Lauren Serna MD, 15 mg at 08/01/24 0840 calcitonin (Miacalcin) injection 50 Units, 50 Units, IntraMUSCular, Daily, Lauren Serna MD cyclobenzaprine (Flexeril) tablet 5 mg, 5 mg, Oral, TID PRN, Lauren Serna MD enoxaparin (Lovenox) syringe 30 mg, 30 mg, SubCUTAneous, Daily, Lauren Serna MD, 30 mg at 08/01/24 0841 fluticasone (Flonase) nasal spray 2 spray, 2 spray, Each Nostril, Daily, Lauren Serna MD, 2 spray at 07/31/24 08 melatonin tablet 3 mg, 3 mg, Oral, Nightly, Lauren Serna MD, 3 mg at 07/31/242054 methylPREDNISolone sod suc (PF) (SOLU-Medrol) 40 MG injection 20 mg, 20 mg, IntraVENous, q12h, Lauren Serna MD, 20 mg at 08/01/24 0618 mirtazapine (Remeron) tablet 15 mg, 15 mg, Oral, Nightly, Lauren Serna MD, 15 mg at 07/31/242054 mometasone-formoterol (Dulera 200) 200-5 MCG/ACT inhaler 2 puff, 2 puff, Inhalation, BID, Lauren Serna MD, 2 puff at 08/01/2448 montelukast (Singulair) tablet 10 mg, 10 mg, Oral, Nightly, Lauren Serna MD, 10 mg at 07/31/242054 morphine (MSIR) tablet 7.5 mg, 7.5 mg, Oral, q4h PRN, DB Lo CNP, 7.5 mg at 08/01/24 08 naloxone (Narcan) injection 0.4 mg, 0.4 mg, IntraVENous, q5 min PRN, Lauren Serna MD ondansetron ODT (Zofran-ODT) disintegrating tablet 4 mg, 4 mg, Oral, q8h PRN OR ondansetron (Zofran) injection 4 mg, 4 mg, IntraVENous, q6h PRN, Lauren Serna MD PARoxetine (Paxil) tablet 20 mg, 20 mg, Oral, q AM, Dejuan Bishop MD, 20 mg at 08/01/2440 polyethylene glycol (PEG) 3350 (Miralax) packet 17 g, 17 g, Oral, Daily PRN, Lauren Serna MD QUEtiapine (SEROquel) tablet 50 mg, 50 mg, Oral, Nightly PRN, DB Merrill CNP, 50 mg at 07/31/242054 tiotropium (Spiriva Respimat) 2.5 MCG/ACT inhaler 2 puff, 2 puff, Inhalation, Daily, Lauren Serna MD, 2 puff at 08/01/24 0848 Images from the original note were not included. Speech-Language Pathology SPEECH LANGUAGE PATHOLOGY [facility] Dysphagia Treatment Note Patient Name: Gonzalo Deluca Evaluation Date: 08/01/2024 Date of : 1955 Admission Date: 07/30/2024 4:40 PM Age: 68 y.o. Room[facility]Bed: [facility] B Subjective Patient alert and cooperative. Seen upright in bed. Answers all basic questions with clear vocal quality. Follows all basic commands. No visitors at bedside. Pt was sitting up eating breakfast. Current Diet: Dietary Orders (From admission, onward) Start Ordered 07/31/24 1031 Supplement:AM Snack, PM Snack; Vanilla Ensure Plus Until discontinued Question Answer Comment Frequency AM Snack Frequency PM Snack Select supplement: Vanilla Ensure Plus 07/31/24 1030 07/31/24 1031 Supplement:HS Snack; [place] Ensure Plus Until discontinued Question Answer Comment Frequency HS Snack Select supplement: [place] Ensure Plus 07/31/24 1030 07/30/24 2313 Adult diet Regular Diet effective now Question: Diet type Answer: Regular 07/30/24 2313 Oxygen: Oxygen Therapy: Supplemental oxygen O2 Delivery Method: Nasal cannula O2 Flow Rate (L/min): 5 L/min Pain: Pt denies any current pain. PPE Worn: gloves Objective & Assessment Dysphagia Treatment # of Activities: 1 Dysphagia Activity 1: Assess prandial tolerance and education of recommended strategies. Seen pt at end of breakfast meal. Taking larger bites. Encourage small bites/drinks to assist with decreased possible work of breathing with entire meal. Pt has upper dentures now. Can still eat without. Indicated slower rate with eating breakfast sandwich, however taking large bites of banana bread. Reinforce smaller bites to assist with control of respiratory status. Pt was in agreement. She is open to drinking Ensure to assist with supplement for nutritional status. Feel pt is alert and appropriate to manage diet choices independently. If dislike or unable to masticate pt will avoid. (As she did with fresh fruit cup on breakfast tray.). no further ST needs at this time. Plan & Recommendations Plan: Encouraged smaller bites. Recommend Regular solids and Thin liquids and meds as tolerated and the following precautions: - Upright positioning for all PO intake - Slow rate of intake - Small bites/sips Patient has achieved all acute care METAL SMELTER goals. Speech therapy to sign off at this time. D/C Recommendations: No follow up therapy recommended post discharge, If changes in function or further concerns with airway compromise please reconsult ST. Education Education Given: swallowing strategies Given To: patient Response: verbalizes understanding Goals Patient Stated Goal: To continue to eat better, drink Ensure. Encounter Problems Encounter Problems (Resolved) Swallowing Patient will tolerate the least restrictive diet consistency to allow for safe consumption of daily meals (Completed) Start: 07/31/24 Expected End: 08/07/24 Resolved: 08/01/24 Therapy Time METAL SMELTER Individual Minutes Time In: 829 Time Out: 839 Minutes: 10 ORI oHlden Images from the original note were not included. Palliative Care Progress Note Chief Complaint: Gonzalo Deluca is a 68 y.o. female with chief complaint of weight loss. Palliative Care provider will follow-up on 08-02. Assessment/Plan Goals of care Gonzalo Deluca retains capacity for medical decision-making -legal surrogate decision maker is unknown, daughter listed in emergency contacts-->Karishma Deluca ( ) -Would encourage completion of HCPOA while admitted. -see subjective for details of conversation -goals of care include: 1) improve SOB 2) improve pain Fall L Elbow fracture Debility, FTT -Worsening functional status at home. -She lives with her daughter, mainly stays on 2nd floor in her room where she has microwave and fridge. -She is really not able to go up and down steps well. -PT/OT. -Appears that she is getting L arm casted tomorrow with ortho. -Orthopedics following, non-op fracture. -Monitor. Unintentional weight loss Pulmonary cachexia -Patient is severely malnourished appearing. -Noted that reports that she is not hungry and when she does try to eat she is full only after a few bites. -Endorses feeling very short of breath when trying to eat. -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 -Child Development Teacher would be helpful. -BMI 15.28 -Albumin-->3.0 -Monitor. Chronic respiratory failure Dyspnea Severe emphysema -3L baseline. Worsening SOB as of late. -Chronically on percocet, but does not endorse this helping with shortness of breath. -Increase MSIR to 15 mg Q4 hour PRN severe pain/shortness of breath. Does not appear that 7.5 mg dose was effective. -PFT last done in 2016-->FEV1/FVC reduced, FEV1 1.45, 50% predicted. No bronchodilator response. Severe obstructive ventilatory defect with evidence of gas trapping, no evidence of hyperinflation or bronchodilator response. -Discussion around code status today. Discussed with her the likelihood that she would not come off of a ventilator if put on one, she is still OK with short term intubation at this time. -CT CAP 07-31-->reviewed, severe emphysema. -Pulmonology consulted, await recs. Discussed with MACHINE WIPER Leann this AM. She will need follow up outpatient as well. -monitor. Continue to follow. Palliative Care Encounter -Code Status: DNR-CCA - will continue to follow for ongoing monitoring of progression of Dyspnea as well as for appropriateness for hospice care due to COPD and Respiratory Failure Discharge planning: Not ready for discharge due to uncontrolled symptoms Patient meets criteria for general inpatient hospice care: No Palliative Care IDT members involved: None Discussed the plan of care with the other interdisciplinary team (IDT) members of the Palliative Care and Hospice teams and Patient. Subjective: Subjective/Events Gonzalo Deluca is a 68 y.o. female seen today. States that she feels a little better than yesterday. MSIR at current dose is not really helping. Increased to 15 mg today. Continue to follow. Pulmonology consulted. All other systems reviewed and negative. Palliative Care Assessments: Goals of care: Continue Current Management, Live Longer, extend life as much as possible, Improve or Maintain Function/Quality of Life, Preserve [place]/Autonomy/Control, and Remain at Home Advanced Directives: DNR Functional Assessment: PPS 70% amb reduced; can't do normal work/some disease; full self care; normal or reduced intake; full LOC Prognosis: depends upon goals of care Spiritual Assessment: No spiritual distress identified Bereavement and Grief: To Be Determined PDMP/OARRS Reviewed: Yes-reviewed ROS: See palliative care ROS/ESAS below; All other systems were reviewed and are negative. [place] Symptom Assessment Score [place] Score Pain Score (if non-verbal, add .FLACC below) 4 Tiredness Score 0 Nausea Score 0 Depression Score 0 Anxiety Score 0 Drowsiness Score 0 Anorexia Score (0= eating well, 10= not eating) 6 Wellbeing Score (10= worst sense of well-being) 7 Constipation 0 Dyspnea Score (0= no shortness of breath) 4 Family Meeting: Participants: patient Family meeting was held to discuss:Goals of Care, Treatment Options, and Symptom Management Objective: BP 114/79 Pulse 91 Temp 36.9 C (98.5 F) (Temporal) Resp 18 Ht 5' 4" (1.626 m) Wt 89 lb (40.4 kg) SpO2 90% BMI 15.28 kg/m Physical Exam Vitals and nursing note reviewed. Constitutional: General: She is awake. She is not in acute distress. Appearance: She is cachectic. She is ill-appearing. Interventions: Nasal cannula in place. HENT: Head: Normocephalic and atraumatic. Nose: Nose normal. Mouth/Throat: Mouth: Mucous membranes are moist. Pharynx: Oropharynx is clear. Eyes: General: Right eye: No discharge. Left eye: No discharge. Extraocular Movements: Extraocular movements intact. Pupils: Pupils are equal, round, and reactive to light. Cardiovascular: Rate and Rhythm: Normal rate and regular rhythm. Pulses: Normal pulses. Heart sounds: Normal heart sounds. No murmur heard. Pulmonary: Effort: Pulmonary effort is normal. No respiratory distress. Breath sounds: Normal breath sounds. Abdominal: General: Abdomen is flat. There is no distension. Palpations: Abdomen is soft. Tenderness: There is no abdominal tenderness. Musculoskeletal: Cervical back: Normal range of motion and neck supple. Right lower leg: No edema. Left lower leg: No edema. Skin: General: Skin is warm and dry. Capillary Refill: Capillary refill takes less than 2 seconds. Coloration: Skin is pale. Neurological: Mental Status: She is alert and oriented to person, place, and time. Mental status is at baseline. Psychiatric: Mood and Affect: Mood normal. Behavior: Behavior normal. Behavior is cooperative. Thought Content: Thought content normal. Judgment: Judgment normal. Medication information: 24-hour PRN meds received: MSIR 7.5 mg x3 Results/Verification of Data Review Objective data reviewed (must include dates reviewed for labs, imaging reports and other specialty notes): BMP, CBC 08/01/24 ABG 08/01/24 PFT 08/01/24 Data in Support of Terminal Illness: Is patient hospice appropriate? Eligible, but not consistent with [facility] at this time DB Aggarwal CNP H: Recent Labs 07/30/24 1729 HGB 11.2* WBC 8.9 VS: Blood pressure 145/86, pulse 91, temperature 36.7 C (98.1 F), temperature source Temporal, resp. rate 18, height 1.626 m (5' 4"), weight 40.4 kg (89 lb), SpO2 96%. No complains or overnight issues. PE: NVI LUE. Long arm splint intact. Good finger ROM Xray: N/a IMP: Left supracondylar humerus fx -- chronic? PLAN: Will apply LAC tomorrow 0700 Lab Results Component Value Date WBC 8.9 07/30/2024 HGB 11.2 (L) 07/30/2024 HCT 37.0 07/30/2024 PLT 225 07/30/2024 Hospitalist Progress Note 07/31/2024 [phone]: Please page me ([phone]) for patient care issues. [phone]: Please page IMS night Hospitalist for any issues. Subjective: Admit Date: 07/30/2024 PCP: HERMINIA CASE MD Room#: B2-254/B2-254 B Interval History: Patient is sitting on the bed, denies any chest pain or shortness of breath. Denies any abdominal pain nausea or vomitings No other significant overnight issues. Adult diet Regular @[id number]@ 24HR INTAKE/OUTPUT: Intake/Output Summary (Last 24 hours) at 07/31/2024 2325 Last data filed at 07/31/2024 1759 Gross per 24 hour Intake 565 ml Output -- Net 565 ml Past Medical History: Medical History[1] LABS: CBC: Recent Labs 07/30/24 1729 WBC 8.9 RBC 3.58* HGB 11.2* HCT 37.0 MCV 103.4* RDW 13.4 PLT 225 BMP: Recent Labs 07/30/24 1729 NA 144 K 5.0 CL 103 CO2 37* BUN 16 CREATININE 0.63 GLUCOSE 80* CALCIUM 8.8 ANIONGAP 4 LIVER PROFILE: Recent Labs 07/30/24 1729 AST 21 ALT 10 BILITOT 0.2 ALKPHOS 97 PROT 6.5 PT/INR: No results for input(s): "PROTIME", "INR" in the last 72 hours. CARDIAC ENZYMES: No results for input(s): "TROPONINI" in the last 72 hours. Procalcitonin: Lab Results Component Value Date PROCAL 0.03 07/30/2024 COVID-19 PCR: No results for input(s): "COVID19" in the last 72 hours. Objective: Vitals: BP 145/86 (BP Location: Left arm, Patient Position: Lying) Pulse 91 Temp 36.7 C (98.1 F) (Temporal) Resp 18 Ht 5' 4" (1.626 m) Wt 89 lb (40.4 kg) SpO2 96% BMI 15.28 kg/m Pulse Ox: SpO2 Av.6 % Min: 92 % Max: 96 % Supplemental O2: O2 Flow Rate (L/min): 5 L/min General appearance: No apparent distress, appears stated age and cooperative with exam HEENT: Normal cephalic, atraumatic without obvious deformity. Pupils equal, round, and reactive to light. Extra ocular muscles intact. Conjunctivae/corneas clear. Neck: Supple, with full range of motion. No jugular venous distention. Trachea midline. No lymphadenopathy. Respiratory: Normal respiratory effort. Clear to auscultation, bilaterally without Rales/Wheezes/Rhonchi. Cardiovascular: Regular rate and rhythm with normal S1/S2 without murmurs, rubs or gallops. Abdomen: Soft, non-tender, non-distended with normal bowel sounds. No rebound or guarding. Musculoskeletal: Left upper extremity cast is in place Skin: Skin color, texture, turgor normal. No rashes or lesions. Neurologic: Neurovascularly intact without any focal sensory/motor deficits. Cranial nerves: II-XII intact, grossly non-focal. Medications: Continuous Meds[2] Scheduled Meds[3] Assessment Left supracondylar humerus fracture-mostly subacute from 04/2024. Left lower lobe density-new compared to previous CT scan. Acute COPD exacerbation. Protein calorie malnutrition. History of: Severe COPD-emphysematous lung disease. Chronic respiratory failure on 3 L nasal cannula at baseline. Heavy tobacco smoker-quit 5 years ago-currently continues to vape. Severe protein calorie malnutrition. Severe osteoporosis. Plan: Orthopedics evaluated the patient, given her severe osteoporosis-not a surgical candidate. Planning for long-arm cast tomorrow. Continue symptomatic treatment. Patient is on IV Solu-Medrol, possible transition to prednisone in next 1 to 2 days, continue breathing treatments both scheduled and as needed. Pulmonary is following and managing COPD, also recommended follow-up imaging with a CT scan of the chest in short-term to follow-up on left lower lobe density. PFTs outpatient. Protein supplements ordered. Home medications reviewed and resumed appropriately Follow-up CBC BMP ordered DVT prophylaxis: Lovenox daily. Disposition: PT OT recommending [facility] facility. Possible discharge in next 1 to 2 days. Pending Long arm cast placement -am labs, replace lytes prn -increase activity -DVT prophylaxis: [] Lovenox [] Heparin [] SCDs [x] Encourage ambulation [] Already on Anticoagulation Advance Directive: DNR-CCA Discharge planning: TBD Dejuan Bishop MD Division of Hospitalist Medicine Inpatient Medical Services/[facility] P[facility]: [phone] [1] Past Medical History: Diagnosis Date Abnormal stress test Acute exacerbation of chronic obstructive pulmonary disease (HCC) 04/12/2018 Allergic rhinitis Arthritis Asthma Bronchitis Cancer ([facility]/HCC) (HCC) skin Cervical cancer (HCC) Chest pain COPD (chronic obstructive pulmonary disease) ([facility]) USE OXYGEN 3 L AT NIGHT DDD (degenerative disc disease), cervical Defect, retina, with detachment right DJD (degenerative joint disease), lumbar Emphysema lung (HCC) Former smoker Hematuria SCHEDULED FOR THE PROCEDURE /SURGERY ON 02/11/2017 Hypokalemia Lung nodules Near syncope 09/19/2023 Osteoporosis Palpitations Pneumonia Recurrent major depression ([facility]) Sciatica Thoracic compression fracture ([facility]) Vitamin D deficiency [2] [3] acetaminophen, 650 mg, Oral, BID aspirin, 81 mg, Oral, Daily buPROPion XL, 150 mg, Oral, Daily busPIRone, 15 mg, Oral, BID calcitonin, 50 Units, IntraMUSCular, Daily enoxaparin, 30 mg, SubCUTAneous, Daily fluticasone, 2 spray, Each Nostril, Daily melatonin, 3 mg, Oral, Nightly methylPREDNISolone sod suc (PF), 20 mg, IntraVENous, q12h mirtazapine, 15 mg, Oral, Nightly mometasone-formoterol, 2 puff, Inhalation, BID montelukast, 10 mg, Oral, Nightly [START ON 08/01/2024] PARoxetine, 20 mg, Oral, q AM tiotropium, 2 puff, Inhalation, Daily Images from the original note were not included. Speech-Language Pathology SPEECH LANGUAGE PATHOLOGY [facility] SPEECH THERAPY DIET RECOMMENDATIONS Diet: Regular solids (SOFT CHOICES as NEEDED)and Thin liquids Medications: as tolerated Precautions: - Upright positioning for all PO intake - Slow rate of intake - Small bites/sips Images from the original note were not included. PHYSICAL THERAPY [facility] Initial Evaluation Name/MRN: Gonzalo Deluca ([id number]) Evaluation Date: 07/31/2024 Date of : 1955 Admission Date: 07/30/2024 4:40 PM Age: 68 y.o. Room/Bed: [facility] B Discharge Recommendation: Continue to assess pending progress, Snf Facility Other: TBD at next level of care, pt owns a cane Assessment IMPRESSION: Pt presents with decreased functional mobility, decreased strength, decreased safety awareness, decreased endurance and impaired balance. Pt has decreased standing balance, poor activity tolerance, decreased safety awareness and weakness requiring assist of 1 person in order to safely complete OOB mobility placing her at a high risk of falling. Pt could benefit from skilled PT in order to address her decreased functional mobility, strength, balance and safety. Pt has medical history as listed below that that contributes to her clinical presentation, including COPD. At baseline patient is functionally independent with a cane. Currently patient is unsafe to return home secondary to her increased need for assist and fall risks with mobility. Admitting Diagnosis: Pt referred from PCP office with weight loss, SOB and failure to thrive. Pt also c/o she fell in apr, she had left elbow pain, and her armed turned black for weeks back then and was swollen since then. Current x-rays show a supracondylar fracture. Dr. Gresham plans to put a long-arm cast on her this admission and requests L UE NWB. Prognosis: good Performance Deficits /Impairments: Increased Pain, Decreased Functional Mobility, Decreased ADL status, Decreased Strength, Decreased Safety Awareness, Decreased Endurance, Decreased Balance, and Decreased ROM Decision Making: Medium Complexity Subjective Patient pleasant and agreeable to therapy session this date. Per RN patient okay for therapy. Observation: 3L O2 intact, L UE splint donned Vitals SpO2 84-92% Pain: 0-10 pain scale: 5/10 Location: L UE Past Medical History: Medical History[1] Past Surgical History: Surgical History[2] Admission Diagnosis: Patient Active Problem List Diagnosis Date Noted Severe malnutrition ([facility]) ([facility]) 07/31/2024 Adult failure to thrive 07/30/2024 Falls frequently 09/20/2023 Unintentional weight loss 09/20/2023 Debility 09/20/2023 PFO (patent foramen ovale) 09/20/2023 Lumbar compression fracture, closed, initial encounter ([facility]) 02/13/2023 Nondisplaced fracture of neck of left femur ([facility]) 11/06/2022 Other specified complication of vascular prosthetic devices, implants and grafts, initial encounter ([facility]) 08/06/2021 Poor venous access 12/19/2019 H/O: CVA (cerebrovascular accident) 12/14/2019 Malignant neoplasm of exocervix ([facility]) 11/07/2019 S/P hysterectomy 11/07/2019 PNA (pneumonia) 08/02/2019 Leukocytosis 04/13/2018 Shortness of breath 04/13/2018 DDD (degenerative disc disease), cervical 04/12/2018 Recurrent major depression ([facility]) 04/12/2018 Chronic back pain 04/10/2017 COPD (chronic obstructive pulmonary disease) ([facility]) 04/10/2017 Pulmonary nodule 04/10/2017 Sciatica 04/10/2017 Supplemental oxygen dependent 04/10/2017 Former smoker 04/10/2017 Medical Precautions: Droplet Plus Proper PPE donned/doffed in accordance with facility standards. Fall Risk: Webb Fall Risk Score: 70 (Low Risk) Webb Fall Risk Score: 70 (High Risk) Precautions/Restrictions: Braces or Orthoses: L UE splint - long cast to by completed this admission by Dr. Gresham Left UE Weight Bearing: Non-Weight Bearing Lines/Drains/Airways: O2 Family/Caregiver Present: none Overall Cognitive Status: Exceptions - Safety judgement: decreased awareness of need for assistance and decreased awareness of need for safety - Problem solving: decreased awareness of errors and decreased awareness of L UE NWB without consistent cueing Overall Orientation Status: Oriented x4 Vision: wears glasses at all times and and are being used during the eval Hearing: normal Social/Functional History Patient admitted from home. Lives With: Daughter Type of Home: single family home Home Layout: Multi-Level Home, Bed/Bath Upstairs, and 13 steps to get to her bedroom Home Access: Stairs to Enter with Rails (# of stairs: 3) Bathroom Shower/Tub: Tub/Shower Combo Toilet: Standard Home Equipment: front wheeled walker, rollator, cane, bedside commode, oxygen, and 3L O2 baseline Homemaking Responsibilities: Independent Receives Help From: Family Active Linotyper: N/A Prior Level of Function Prior Level of ADL Function: Independent Prior Level of Mobility: Independent; Device: Straight Cane Prior Level of Transfers: Independent Objective Lower Extremity Assessment AROM: WFL Strength: Pt demonstrates appropriate B LE and quad strength in order to safely participate in OOB mobility, generalized weakness noted Sensation: WFL Bed Mobility: Supine to sit: SBA Sit to supine: SBA Scooting: SBA Patient educated on L UE NWB restriction prior to mobility. Pt able to maintain with cueing, however attempts to utilize L UE occasionally, corrects with cues. Pt educated on rationale for L UE NWB in order to improve patient understanding and compliance. Denies dizziness with positional changes. Transfers Sit to stand: Contact Guard, to oxygen carrier - pt reports she uses this or a cane Stand to sit: Contact Guard Denies dizziness on initial stance. Pt requires cues for L UE NWB with transitions, able to maintain with cueing. Ambulation Ambulation 1 Assistive device(s) used: oxygen carrier pushed with R UE Assist level: Contact Guard, Min Assist Distance (ft): 40 ft x 1 Quality of gait: reciprocal stepping, B foot clearance, uneven step length, 1 LOB with Jeff for correct, increased gait speed with increased fatigue and SOB noted Pt requires 1 person for safety and cues for pursed lip breathing and slowing gait speed for safety. Pts SpO2 decreased to 84% with this distance requiring ~1 minute seated rest and PLB to return to >90%. Outcome Measures AM-PAC How much HELP from another person do you currently need Turning from your back to your side while in a flat bed without using bedrails?: A Little Moving from lying on your back to sitting on the side of a flat bed without using bedrails?: A Little Moving to and from a bed to a chair (including a wheelchair)?: A Little Standing up from a chair using your arms (wheelchair or bedside chair)?: A Little Walking in a hospital room?: A Little Stair climbing assessed?: No AM-PAC Inpatient Mobility Raw Score (No Stairs) : 15 [facility] Score: Walked 10 steps or more (i.e. walked to restroom) Plan Pt would benefit from skilled acute PT services to address Strengthening, ROM, Gait Training, Balance Training, Self-Care/ADL Training, Functional Mobility Training, Endurance Training, Safety Education and Training, Stair Training, Pain Management, Equipment Evaluation/Education, Home Management Training, and Patient/Caregiver Training. Frequency: 7 visits Barriers: Pain, Impaired balance, and Decreased endurance Safety/Education Safety Safety Devices in place: All fall risk precautions in place, call light within reach, left in bed, gait belt, patient at risk for falls, nurse notified, and no alarms engaged upon entry Restraints: N/A Education Education Given To: patient Education Provided: PT Role, PT Goals, Gait Training, Plan of Care, Precautions, Transfer Training, Energy Conservation, Equipment, Fall Prevention Education, Discharge Recommendations, Benefits of Increasing Activity, and Breathing Techniques Education Method: Verbal, Demonstration, and Teach Back Barriers to Learning: None Education Outcome: Verbalized Understanding, Demonstrated Understanding, and Continued Education Needed Goals Patient Stated Goal: Patient states she wants to get stronger. Encounter Problems Encounter Problems (Active) Balance Patient will maintain dynamic standing balance for 5 minutes with modified independence in order to demonstrate decreased risk of falling. Start: 07/31/24 Expected End: 08/14/24 Exercise Patient will complete lower extremity exercises for 1-2 sets / 10 reps in order to improve strength and activity tolerance for mobility. Start: 07/31/24 Expected End: 08/14/24 Mobility Patient will ambulate 100 feet with modified independence and least restrictive device in order to improve safety and independence with mobility. Start: 07/31/24 Expected End: 08/14/24 Patient will ascend and descend 13 stairs with one railing and supervision in order to safely negotiate home. Start: 07/31/24 Expected End: 08/14/24 Safety Patient will recall/demonstrate weight bearing and/or ROM restrictions with all functional mobility in order to promote healing and safety with functional tasks. Start: 07/31/24 Expected End: 08/14/24 Transfers Patient will perform bed mobility with modified independence in order to improve independence and prepare for out of bed mobility. Start: 07/31/24 Expected End: 08/14/24 Patient will complete functional transfers with least restrictive device with modified independence in order to prepare for ambulation. Start: 07/31/24 Expected End: 08/14/24 Therapy Time Individual Co-Treatment Co-Evaluation Time In 1437 Time Out 1449 Minutes 12 Jennifer Esparza PT Patient's Physical Therapy Plan of Care supervision is transferred to a [facility] Physical Therapist. Goals and/or treatment plan was established in collaboration with patient/family/other representatives. [1] Past Medical History: Diagnosis Date Abnormal stress test Acute exacerbation of chronic obstructive pulmonary disease (HCC) 04/12/2018 Allergic rhinitis Arthritis Asthma Bronchitis Cancer (CMS/HCC) (HCC) skin Cervical cancer ([facility]) Chest pain COPD (chronic obstructive pulmonary disease) ([facility]) USE OXYGEN 3 L AT NIGHT DDD (degenerative disc disease), cervical Defect, retina, with detachment right DJD (degenerative joint disease), lumbar Emphysema lung ([facility]) Former smoker Hematuria SCHEDULED FOR THE PROCEDURE /SURGERY ON 02/11/2017 Hypokalemia Lung nodules Near syncope 09/19/2023 Osteoporosis Palpitations Pneumonia Recurrent major depression (HCC) Sciatica Thoracic compression fracture ([facility]) Vitamin D deficiency [2] Past Surgical History: Procedure Laterality Date CYSTOSCOPY 01/12/2017 OFFICE PROCEDURE CYSTOSCOPY 02/11/2017 C&P bladder biopsy EYE SURGERY detached retina 1994 HYSTERECTOMY 11/06/2019 ABDOMINAL RADICAL HYSTERECTOMY WITH BSO AND PELVIC LYMPH; DR. ZIYAD MENENDEZ [facility] OTHER SURGICAL HISTORY Left 12/19/2019 Med Port POWER Regular Size OTHER SURGICAL HISTORY Left 11/07/2022 Percutaneous skeltal fixation femoral fracture TUBAL LIGATION 1992 Images from the original note were not included. Speech-Language Pathology SPEECH LANGUAGE PATHOLOGY [facility] Bedside Swallow Evaluation Patient Name: Gonzalo Deluca Evaluation Date: 07/31/2024 Date of : 1955 Admission Date: 07/30/2024 4:40 PM Age: 68 y.o. Room/Bed: [facility] B IMPRESSION: No s/s oropharyngeal dysphagia. No overt clinical s/s pulmonary compromise with PO. Risk factors for aspiration include COPD, emphysema, O2, intermittent coughing, concern with weight loss. RECOMMENDATION: Recommend Regular solids and Thin liquids and meds as tolerated and the following precautions: (pt is appropriate to make softer choices and cut own food up) - Upright positioning for all PO intake - Slow rate of intake - Small bites/sips Dysphagia NOMS: Level 7: The individual's ability to eat independently is not limited by swallow function. Swallowing would be safe and efficient across all consistencies. Compensatory strategies are effectively used when needed. Pt would benefit from skilled acute METAL SMELTER services Ensure patient tolerance of the recommended diet. Frequency: 3 days/wk for 1 week Barriers: debility, decreased appetite Prognosis: good D/C Recommendations: ongoing speech therapy at next level of care Subjective Patient alert and cooperative. Seen upright in bed. Answers some basic questions with clear vocal quality. Follows all basic commands. No visitors at bedside. Spoke with CHARLEY Braun who cleared pt to be evaluated. Dysphagia History: No history of METAL SMELTER services in EMR with retrospective chart review Baseline Diet: Regular diet with thin liquids Current Diet: Dietary Orders (From admission, onward) Start Ordered 07/31/24 1031 Supplement:AM Snack, PM Snack; Vanilla Ensure Plus Until discontinued Question Answer Comment Frequency AM Snack Frequency PM Snack Select supplement: Vanilla Ensure Plus 07/31/24 1030 07/31/24 1031 Supplement:HS Snack; [place] Ensure Plus Until discontinued Question Answer Comment Frequency HS Snack Select supplement: [place] Ensure Plus 07/31/24 1030 07/30/242312 Adult diet Regular Diet effective now Question: Diet type Answer: Regular 07/30/242312 Tube Feeding: no Tracheostomy: no Recent Chest Xray/CT of Chest: XR chest 1 view 07/30/2024 Impression No acute cardiopulmonary abnormality identified. Chronic appearing lung changes. Report Dictated on Electronically Signed By: Honorio Andino MD Electronically Signed Date/Time: 07/30/2024 5:42 PM EDT Oxygen: Oxygen Therapy: Supplemental oxygen O2 Delivery Method: Nasal cannula O2 Flow Rate (L/min): 5 L/min Past Medical History: Medical History[1] Past Surgical History: Surgical History[2] Admission Diagnosis: Patient Active Problem List Diagnosis Date Noted Severe malnutrition (CMS/HCC) ([facility]) 07/31/2024 Adult failure to thrive 07/30/2024 Falls frequently 09/20/2023 Unintentional weight loss 09/20/2023 Debility 09/20/2023 PFO (patent foramen ovale) 09/20/2023 Lumbar compression fracture, closed, initial encounter ([facility]) 02/13/2023 Nondisplaced fracture of neck of left femur ([facility]) 11/06/2022 Other specified complication of vascular prosthetic devices, implants and grafts, initial encounter ([facility]) 08/06/2021 Poor venous access 12/19/2019 H/O: CVA (cerebrovascular accident) 12/14/2019 Malignant neoplasm of exocervix ([facility]) 11/07/2019 S/P hysterectomy 11/07/2019 PNA (pneumonia) 08/02/2019 Leukocytosis 04/13/2018 Shortness of breath 04/13/2018 DDD (degenerative disc disease), cervical 04/12/2018 Recurrent major depression ([facility]) 04/12/2018 Chronic back pain 04/10/2017 COPD (chronic obstructive pulmonary disease) ([facility]) 04/10/2017 Pulmonary nodule 04/10/2017 Sciatica 04/10/2017 Supplemental oxygen dependent 04/10/2017 Former smoker 04/10/2017 History of Present Illness: Chief Complaint Patient presents with Weight Loss Pt in with family for c/o failure to thrive, weight loss, and shortness of breath. Pt arrives on 3L oxygen, has history of COPD and states has been short of breath with exertion. Pt states she has been losing weight and now weighs 89lbs. States was sent by PCP Shortness of [id number] y.o. who presents to the emergency department with chief complaint of unintentional weight loss, shortness of breath, and also left elbow pain. Patient has been dealing with COPD for quite some time but recently has gotten more short of breath and is not finding energy to perform much of activities of daily living. Has had very poor appetite normal eats only once a day. Son is also concerned she is not taking care of her with neuropathy because she did not have the oxygen tanks is back up and her concentrator is not working. She was noted be significantly hypoxic at PCP office for the scheduled appointment. Also noted to have lost even more weight since prior PCP appointment so PCP was concern for failure to thrive and sent to ED to ED for further evaluation. With regards to left elbow pain, she states she has fallen a couple of times and think she might of hurt it a month ago. Apparently x-rays were taken at that time but were negative for fracture. Patient Complaint: Pt without complaint. She does support occasional cough with increased rate of intake. Pain: Pt denies any current pain. PPE Worn: gloves Objective Bedside swallow eval completed. Oral Motor Mechanism Facial Movement (CN VII) - WFL Labial Structure/Function (CN VII) - WFL Lingual Structure/Function (CN XII) - WFL Dentition - Some missing teeth, does not have upper dentures, daughter to bring. Oral Hygiene: moist Swallowing Examination PO Trials - thin liquid, (straw) - puree, (teaspoon) - regular solids Oral Phase Patient presents with adequate oral receipt of each bolus. There is no anterior bolus loss. There is appropriate bolus containment for each tested texture in the oral cavity. Mastication appeared complete, organized, and timely. Oral transit time appears WFL. There is no oral residue. Pharyngeal Phase Hyolaryngeal excursion clinically appears adequate and timely per palpation. 1-2 swallows palpated per bolus, likely indicative of adequate pharyngeal clearance. No overt clinical s/s airway penetration as evidenced by no cough, no throat clear, and no change in vocal quality. able to masticate soft regular without upper plate. Encourage that pt order softer solids until dentures are available. Pt reported improved po intake at lunch. "I actually had an appetite. I haven't been hungry. Limited evaluation d/t need to go to CT for scan. Education Education Given: swallowing strategies, diet recommendations with softer choices. Given To: patient Response: verbalizes understanding Goals Patient Stated Goal: None stated. Transport entered room to take to exam. Encounter Problems Encounter Problems (Active) Swallowing Patient will tolerate the least restrictive diet consistency to allow for safe consumption of daily meals Start: 07/31/24 Expected End: 08/07/24 Therapy Time METAL SMELTER Individual Minutes Time In: 1518 Time Out: 1526 Minutes: 8 ORI Holden [1] Past Medical History: Diagnosis Date Abnormal stress test Acute exacerbation of chronic obstructive pulmonary disease (HCC) 04/12/2018 Allergic rhinitis Arthritis Asthma Bronchitis Cancer (CMS/HCC) (HCC) skin Cervical cancer (HCC) Chest pain COPD (chronic obstructive pulmonary disease) (HCC) USE OXYGEN 3 L AT NIGHT DDD (degenerative disc disease), cervical Defect, retina, with detachment right DJD (degenerative joint disease), lumbar Emphysema lung (HCC) Former smoker Hematuria SCHEDULED FOR THE PROCEDURE /SURGERY ON 02/11/2017 Hypokalemia Lung nodules Near syncope 09/19/2023 Osteoporosis Palpitations Pneumonia Recurrent major depression (HCC) Sciatica Thoracic compression fracture (HCC) Vitamin D deficiency [2] Past Surgical History: Procedure Laterality Date CYSTOSCOPY 01/12/2017 OFFICE PROCEDURE CYSTOSCOPY 02/11/2017 C&P bladder biopsy EYE SURGERY detached retina 1994 HYSTERECTOMY 11/06/2019 ABDOMINAL RADICAL HYSTERECTOMY WITH BSO AND PELVIC LYMPH; DR. ZIYAD MENENDEZ [facility] OTHER SURGICAL HISTORY Left 12/19/2019 Med Port POWER Regular Size OTHER SURGICAL HISTORY Left 11/07/2022 Percutaneous skeltal fixation femoral fracture TUBAL LIGATION 1992 Images from the original note were not included. PHYSICAL THERAPY [facility] Name/MRN: Gonzalo Deluca ([id number]) Date: 07/31/2024 Chart review completed. Patient is currently OOR for testing and not available to participate in PT session. Will continue to follow and re-attempt as appropriate. Jennifer Esparza PT Nutrition Assessment Type and Reason for Visit: Initial, Consult (poor po - needs high calorie supplement) Nutrition Recommendations/Plan: Suggest to continue regular diet to promote intake. Upper dentures not here- denies issues -denies assist status- METAL SMELTER ordered per MNT protocol , will initiate vanilla Ensure Plus hi pro( 350 alexus, 20 gm pro/serving) and brown Ensure plus ( 350 alexus, 13 gm pro/serving) Please document PO intakes-diet and ONS- consistently in the flowsheet to better assess intake adequacy. Suggest folate supplement- check vit d status . Suggest daily mvi. Continue remeron. Monitor labs, status, intake to reassess. Follow up weekly Malnutrition Assessment: Malnutrition Status: Severe malnutrition (copd) Context: Chronic Illness Findings of the 6 clinical characteristics of malnutrition: Energy Intake: 75% or less estimated energy requirements for 1 month or longer Weight Loss: Greater than 20% over 1 year (29% in 1 year) Body Fat Loss: Severe body fat loss Orbital, Buccal region Muscle Mass Loss: Severe muscle mass loss Temples (temporalis), Scapula (trapezius), Hand (interosseous) Fluid Accumulation: No significant fluid accumulation Hotel Controller Strength: na Nutrition Assessment: per MD-CHIEF COMPLAINT Chief Complaint Patient presents with Weight Loss Pt in with family for c/o failure to thrive, weight loss, and shortness of breath. Pt arrives on 3L oxygen, has history of COPD and states has been short of breath with exertion. Pt states she has been losing weight and now weighs 89lbs. States was sent by PCP Shortness of Breath, left elbow pain. per MD- Patient has been dealing with COPD for quite some time but recently has gotten more short of breath and is not finding energy to perform much of activities of daily living. Has had very poor appetite normal eats only once a day. Son is also concerned she is not taking care of her with neuropathy because she did not have the oxygen tanks is back up and her concentrator is not working. She was noted be significantly hypoxic at PCP office for the scheduled appointment. Also noted to have lost even more weight since prior PCP appointment so PCP was concern for failure to thrive and sent to ED to ED for further evaluation. per ortho-Assessment 1. Left supracondylar humerus fracture, extra-articular, presumed subacute from April 28, 2024 2. Osteoporosis 3. Severe malnutrition, BMI 15.28 4. Osteoporosis confirmed by last DEXA scan December 10, 2016 Estimated Daily Nutrient Needs: Energy Requirements Based On: Kcal/kg Weight Used for Energy Requirements: Weight for Energy Calculation (kg): 40.4 kg Total Energy Requirements (kcals/day): 30-35-40 or 1212- to 1414- 1616 Weight Used for Protein Requirements: Current Weight in Kg Used for Protein Requirements: 40.4 kg Estimated Total Protein (g/day): 1.2-1.8 or 48-73 Estimated Daily Total Fluid (ml/day): 1.2-1.6 liters Nutrition Related Findings: 29% wt loss in 1 yr- BARREL CHESTED , 5/12 bm hypoactive,jeri 21,alb 3, hgb 11.2, co2- 37, folate 5.2, gfr 90- on remeron, prednisone Wound Type: None Current Nutrition Therapies: Adult diet Regular Current Oral Intake Average Meal Intake: 51-75% Average Supplements Intake: None Ordered (RD to start) Anthropometric Measures: Height: 162.6 cm (5' 4") Current Body Weight: 40.4 kg (89 lb) Weight Source: Standing Scale Usual Body Weight: 56.7 kg (125 lb) (08/06/24) % Weight Change (Calculated): -28.8 [place] Body Weight (lbs) (Calculated): 120 lbs [place] Body Weight (Kg) (Calculated): 55 kg % [place] Body Weight (Calculated): 74.2 % BMI (kg/m2) (Calculated): 15.3 BMI Categories: Underweight (BMI less than 22) age over 65 Nutrition Diagnosis: Severe malnutrition, Inadequate protein-energy intake related to impaired respiratory function, cognitive or neurological impairment as evidenced by severe muscle loss, severe loss of subcutaneous fat, weight loss greater than or equal to 20% in 1 year, poor intake prior to admission, BMI (29% wt loss in 1 year) Nutrition Interventions: Nutrition Education/Counseling: Education initiated (needs high alexus ons) Coordination of Nutrition Care: Continue to monitor while inpatient Plan of Care discussed with: patient Goals: Goals: Meet at least 75% of estimated needs, other (specify) Specify Other Goals: educate on need for high calorie supplement Nutrition Monitoring and Evaluation: Behavioral-Environmental Outcomes: Knowledge or Skill Food/Nutrient Intake Outcomes: Food and Nutrient Intake, Supplement Intake Physical Signs/Symptoms Outcomes: Biochemical Data, Chewing or Swallowing, GI Status, Nausea or Vomiting, Fluid Status or Edema, Hemodynamic Status, Meal Time Behavior, Nutrition Focused Physical Findings, Skin, Weight Discharge Planning: Continue current diet, Continue Oral Nutrition Supplement Phillip Bradshaw RD Contact: *[phone] or secure chat documented in this encounter [facility] 08-08-2024 Plan of care note Problem: Knowledge Deficit Goal: Patient/family/caregiver demonstrates understanding of disease process, treatment plan, medications, and discharge instructions 08/08/2024446 by Sadie Rodriguez RN Outcome: Not Progressing 08/08/2024315 by Sadie Rodriguez RN Outcome: Progressing Problem: Potential for Compromised Skin Integrity Goal: Skin Integrity is Maintained or Improved 08/08/2024446 by Sadie Rodriguez RN Outcome: Not Progressing 08/08/2024315 by Sadie Rodriguez RN Outcome: Not Progressing Problem: Urinary Incontinence Goal: Perineal skin integrity is maintained or improved 08/08/2024446 by Sadie Rodriguez RN Outcome: Not Progressing 08/08/2024315 by Sadie Rodriguez RN Outcome: Not Progressing Problem: Potential for Falls Goal: I will remain free of falls 08/08/2024446 by Sadie Rodriguez RN Outcome: Not Progressing 08/08/2024315 by Sadie Rodriguez RN Outcome: Progressing Problem: Discharge Barriers Goal: My discharge needs are met 08/08/2024446 by Sadie Rodriguez RN Outcome: Not Progressing 08/08/2024315 by Sadie Rodriguez RN Outcome: Not Progressing Problem: Problem Interventions Goal: Assess Nutritional Intake 08/08/2024446 by Sadie Rodriguez RN Outcome: Progressing 08/08/2024 0316 by Sadie Rodriguez RN Outcome: Not Progressing Goal: Dietary Supplements 08/08/2024 0447 by Sadie Rodriguez RN Outcome: Progressing 08/08/2024 0316 by Sadie Rodriguez RN Outcome: Not Progressing Goal: Promote nutritional intake 08/08/2024 0447 by Sadie Rodriguez RN Outcome: Progressing 08/08/2024 0316 by Sadie Rodriguez RN Outcome: Not Progressing [facility] 08-08-2024 Plan of care note Problem: Potential for Compromised Skin Integrity Goal: Skin Integrity is Maintained or Improved Outcome: Not Progressing Problem: Urinary Incontinence Goal: Perineal skin integrity is maintained or improved Outcome: Not Progressing Problem: Discharge Barriers Goal: My discharge needs are met Outcome: Not Progressing Problem: Problem Interventions Goal: Assess Nutritional Intake Outcome: Not Progressing Goal: Dietary Supplements Outcome: Not Progressing Goal: Promote nutritional intake Outcome: Not Progressing [facility] 08-07-2024 Note Formatting of this n ote might be different from the original. Care Management Progress Note -Pt started the appeals process yesterday for denied SNF stay. We now have 72 hours for a response from her insurance. -Notified Dr. Beverly -Updated clinicals faxed to [phone] -If the appeal process is upheld, pt will have to go home with [facility]. -custodial services manager to follow and assist as needed. Length of Stay (Days): 6 GMLOS: 5.2 [facility] 08-07-2024 Note Formatting of this n ote might be different from the original. Care Management Progress Note -Pt started the appeals process yesterday for denied SNF stay. We now have 72 hours for a response from her insurance. -Notified Dr. Beverly -Updated clinicals faxed to [phone] -If the appeal process is upheld, pt will have to go home with [facility]. -custodial services manager to follow and assist as needed. Length of Stay (Days): 6 GMLOS: 5.2 [facility] 08-06-2024 Plan of care note Problem: Knowledge Deficit Goal: Patient/family/caregiver demonstrates understanding of disease process, treatment plan, medications, and discharge instructions Outcome: Progressing Problem: Potential for Compromised Skin Integrity Goal: Skin Integrity is Maintained or Improved Outcome: Progressing Goal: Nutritional status is improving Outcome: Progressing Problem: Urinary Incontinence Goal: Perineal skin integrity is maintained or improved Outcome: Progressing Problem: Potential for Falls Goal: I will remain free of falls Outcome: Progressing Problem: Problem Interventions Goal: Dietary Supplements Outcome: Progressing [facility] 08-06-2024 Note Formatting of this n ote might be different from the original. Spoke with pt earlier in the day to to determine if she wants to appeal the P2P decision denying SNF. Pt asked to go to [place]. She is in the process of trying to get to [facility] through her waiver services. She started this process about a month ago. Tasked SW to check into the [place] situation. SW spoke with daughter Karishma who states she wants her mom to appeal the P2P process. She does not think the pt should be going home. It would not be a good environment for her. Spoke with pt again and informed her of daughter's concerns and needing to appeal the P2P decision. Appeals number given to pt to call: [phone]. Appeals fax number: [phone]. Pt was calling as this CM was walking out of her room. custodial services manager to follow and assist as needed. [facility] 08-06-2024 Note Formatting of this n ote might be different from the original. Spoke with pt earlier in the day to to determine if she wants to appeal the P2P decision denying SNF. Pt asked to go to [place]. She is in the process of trying to get to [facility] through her waiver services. She started this process about a month ago. Tasked SW to check into the AL situation. SW spoke with daughter Karishma who states she wants her mom to appeal the P2P process. She does not think the pt should be going home. It would not be a good environment for her. Spoke with pt again and informed her of daughter's concerns and needing to appeal the P2P decision. Appeals number given to pt to call: [phone]. Appeals fax number: [phone]. Pt was calling as this CM was walking out of her room. custodial services manager to follow and assist as needed. [facility] 08-06-2024 Note Formatting of this n ote might be different from the original. Spoke with patients demetrice Schwarz, regarding dc plans, who states that they would like to ideally get patient into usp and then get patient over to [facility] under Medicaid. This will require an insurance appeal for the usp facility. Shared this discussion with the TCC [facility] 08-06-2024 Note Formatting of this n ote might be different from the original. Spoke with patients demetrice Schwarz, regarding dc plans, who states that they would like to ideally get patient into usp and then get patient over to [facility] under Medicaid. This will require an insurance appeal for the usp facility. Shared this discussion with the [facility] 08-06-2024 Plan of care note Problem: Knowledge Deficit Goal: Patient/family/caregiver demonstrates understanding of disease process, treatment plan, medications, and discharge instructions Outcome: Progressing Problem: Potential for Compromised Skin Integrity Goal: Skin Integrity is Maintained or Improved Outcome: Progressing Problem: Potential for Compromised Skin Integrity Goal: Nutritional status is improving Outcome: Progressing Problem: Urinary Incontinence Goal: Perineal skin integrity is maintained or improved Outcome: Progressing Problem: Potential for Falls Goal: I will remain free of falls Outcome: Progressing Problem: Discharge Barriers Goal: My discharge needs are met Outcome: Progressing [facility] 08-06-2024 Plan of care note Problem: Knowledge Deficit Goal: Patient/family/caregiver demonstrates understanding of disease process, treatment plan, medications, and discharge instructions Outcome: Progressing Problem: Potential for Compromised Skin Integrity Goal: Skin Integrity is Maintained or Improved Outcome: Progressing Problem: Potential for Compromised Skin Integrity Goal: Nutritional status is improving Outcome: Progressing Problem: Urinary Incontinence Goal: Perineal skin integrity is maintained or improved Outcome: Progressing [facility] 08-05-2024 Plan of care note Problem: Knowledge Deficit Goal: Patient/family/caregiver demonstrates understanding of disease process, treatment plan, medications, and discharge instructions Outcome: Progressing Problem: Potential for Compromised Skin Integrity Goal: Skin Integrity is Maintained or Improved Outcome: Progressing Problem: Potential for Compromised Skin Integrity Goal: Nutritional status is improving Outcome: Progressing Problem: Urinary Incontinence Goal: Perineal skin integrity is maintained or improved Outcome: Progressing Problem: Potential for Falls Goal: I will remain free of falls Outcome: Progressing Problem: Discharge Barriers Goal: My discharge needs are met Outcome: Progressing Problem: Problem Interventions Goal: Assess Nutritional Intake Outcome: Progressing [facility] 08-05-2024 Plan of care note Problem: Knowledge Deficit Goal: Patient/family/caregiver demonstrates understanding of disease process, treatment plan, medications, and discharge instructions Outcome: Progressing Problem: Potential for Compromised Skin Integrity Goal: Skin Integrity is Maintained or Improved Outcome: Progressing Goal: Nutritional status is improving Outcome: Progressing Problem: Urinary Incontinence Goal: Perineal skin integrity is maintained or improved Outcome: Progressing Problem: Potential for Falls Goal: I will remain free of falls Outcome: Progressing Problem: Problem Interventions Goal: Assess Nutritional Intake Outcome: Progressing Goal: Dietary Supplements Outcome: Progressing Goal: Promote nutritional intake Outcome: Progressing [facility] 08-04-2024 Note Formatting of this n ote might be different from the original. Was updated by attending that peer to peer was denied and patient would need to submit an appeal. The appeal number for [facility] is [phone] and fast appeal fax [phone] is not open on the weekend and this will need to be initiated on Tuesday. Discussed with patient and she wanted to discuss with her daughter prior to deciding to pursue appeal or discharge home with [facility]. She did state that her daughter was interested in getting her into an assistive living and that she has medicaid. Will update weekday TCC to follow.. [facility] 08-04-2024 Note Formatting of this n ote might be different from the original. Was updated by attending that peer to peer was denied and patient would need to submit an appeal. The appeal number for [facility] is [phone] and fast appeal fax [phone] is not open on the weekend and this will need to be initiated on Tuesday. Discussed with patient and she wanted to discuss with her daughter prior to deciding to pursue appeal or discharge home with [facility]. She did state that her daughter was interested in getting her into an assistive living and that she has medicaid. Will update weekday TCC to follow.. [facility] 08-04-2024 Plan of care note Problem: Knowledge Deficit Goal: Patient/family/caregiver demonstrates understanding of disease process, treatment plan, medications, and discharge instructions Outcome: Progressing Problem: Potential for Compromised Skin Integrity Goal: Skin Integrity is Maintained or Improved Outcome: Progressing Problem: Potential for Compromised Skin Integrity Goal: Nutritional status is improving Outcome: Progressing Problem: Urinary Incontinence Goal: Perineal skin integrity is maintained or improved Outcome: Progressing Problem: Potential for Falls Goal: I will remain free of falls Outcome: Progressing Problem: Discharge Barriers Goal: My discharge needs are met Outcome: Progressing T [facility] 08-04-2024 Note Formatting of this n ote might be different from the original. Called [facility] and spoke with Def[employer] is requesting peer to peer to be completed by 08/06 at 12 noon central standard time. Number for peer to peer is [phone] option 5. Will need members name, and ID number. Physicians are available 8-5 over the weekend central standard time. Did update attending with information to complete peer to peer. . [facility] 08-04-2024 Note Formatting of this n ote might be different from the original. Called [facility] and spoke with Defixo is requesting peer to peer to be completed by 08/06 at 12 noon central standard time. Number for peer to peer is [phone] option 5. Will need members name, and ID number. Physicians are available 8-5 over the weekend central standard time. Did update attending with information to complete peer to peer. . [facility] 08-04-2024 Plan of care note Problem: Knowledge Deficit Goal: Patient/family/caregiver demonstrates understanding of disease process, treatment plan, medications, and discharge instructions Outcome: Progressing Problem: Potential for Compromised Skin Integrity Goal: Skin Integrity is Maintained or Improved Outcome: Progressing Goal: Nutritional status is improving Outcome: Progressing Problem: Urinary Incontinence Goal: Perineal skin integrity is maintained or improved Outcome: Progressing Problem: Potential for Falls Goal: I will remain free of falls Outcome: Progressing Problem: Discharge Barriers Goal: My discharge needs are met Outcome: Progressing Problem: Problem Interventions Goal: Assess Nutritional Intake Outcome: Progressing Goal: Dietary Supplements Outcome: Progressing Goal: Promote nutritional intake Outcome: Progressing [facility] 08-03-2024 Note Formatting of this n ote might be different from the original. Tasked weekend case hardener to follow for pending auth to [facility]. 7000 will need to be completed at the time of discharge. custodial services manager to follow and assist as needed. [facility] 08-03-2024 Note Formatting of this n ote might be different from the original. Tasked weekend case hardener to follow for pending auth to [facility]. 7000 will need to be completed at the time of discharge. custodial services manager to follow and assist as needed. [facility] 08-03-2024 Note Formatting of this n ote might be different from the original. Sent updated notes to [facility] per [facility] request. Await review and response regarding ability to accept. TCC notified. [facility] 08-03-2024 Note Formatting of this n ote might be different from the original. Sent updated notes to [facility] per TCC request. Await review and response regarding ability to accept. TCC notified. [facility] 08-03-2024 Note Formatting of this n ote might be different from the original. Care Management Progress Note -Discharge plan is [facility] -Tasked [facility] pond supervisor to start auth. -Tasked [employer] to send updated clinical notes to facility. -custodial services manager to follow for auth approval and assist as needed. Length of Stay (Days): 2 GMLOS: 4.1 [facility] 08-03-2024 Note Formatting of this n ote might be different from the original. Care Management Progress Note -Discharge plan is [facility] -Tasked [employer] pond supervisor to start auth. -Tasked [employer] to send updated clinical notes to facility. -custodial services manager to follow for auth approval and assist as needed. Length of Stay (Days): 2 GMLOS: 4.1 [facility] 08-03-2024 Plan of care note Problem: Knowledge Deficit Goal: Patient/family/caregiver demonstrates understanding of disease process, treatment plan, medications, and discharge instructions Outcome: Progressing Problem: Potential for Compromised Skin Integrity Goal: Skin Integrity is Maintained or Improved Outcome: Progressing Problem: Potential for Compromised Skin Integrity Goal: Nutritional status is improving Outcome: Progressing Problem: Urinary Incontinence Goal: Perineal skin integrity is maintained or improved Outcome: Progressing Problem: Potential for Falls Goal: I will remain free of falls Outcome: Progressing Problem: Discharge Barriers Goal: My discharge needs are met Outcome: Progressing Problem: Problem Interventions Goal: Assess Nutritional Intake Outcome: Progressing [facility] 08-03-2024 Plan of care note Problem: Knowledge Deficit Goal: Patient/family/caregiver demonstrates understanding of disease process, treatment plan, medications, and discharge instructions Outcome: Progressing Problem: Potential for Compromised Skin Integrity Goal: Skin Integrity is Maintained or Improved Outcome: Progressing Goal: Nutritional status is improving Outcome: Progressing Problem: Urinary Incontinence Goal: Perineal skin integrity is maintained or improved Outcome: Progressing Problem: Potential for Falls Goal: I will remain free of falls Outcome: Progressing Problem: Discharge Barriers Goal: My discharge needs are met Outcome: Progressing [facility] 08-02-2024 Note Formatting of this n ote might be different from the original. Referral placed to [facility] via [facility] per TCC request. Await review and response regarding ability to accept. TCC notified. [facility] 08-02-2024 Note Formatting of this n ote might be different from the original. Referral placed to [facility] via [facility] per TCC request. Await review and response regarding ability to accept. TCC notified. [facility] 08-02-2024 Note Formatting of this n ote might be different from the original. Care Management Progress Note -Spoke with pt at bedside for SNF choices. -Pt would like referrals sent to [facility], [facility], and [facility]. -Tasked [employer] to send those referrals. -Will speak with pt again once facility responses are in for facility of choice. -custodial services manager to follow and assist as needed. Length of Stay (Days): 1 GMLOS: No GMLOS Documented -Spoke with pt and she has chosen [facility] as FOC. Informed facility. ADOD is [address] Bishop. Anticipate starting auth tomorrow. custodial services manager to follow and assist as needed. [facility] 08-02-2024 Note Formatting of this n ote might be different from the original. Care Management Progress Note -Spoke with pt at bedside for SNF choices. -Pt would like referrals sent to [facility], [facility], [facility], and [facility]. -Tasked [employer] to send those referrals. -Will speak with pt again once facility responses are in for facility of choice. -custodial services manager to follow and assist as needed. Length of Stay (Days): 1 GMLOS: No GMLOS Documented -Spoke with pt and she has chosen [facility] as FOC. Informed facility. ADOD is [address] Bishop. Anticipate starting auth tomorrow. custodial services manager to follow and assist as needed. [facility] 08-02-2024 Plan of care note Problem: Knowledge Deficit Goal: Patient/family/caregiver demonstrates understanding of disease process, treatment plan, medications, and discharge instructions Outcome: Progressing Problem: Potential for Compromised Skin Integrity Goal: Skin Integrity is Maintained or Improved Outcome: Progressing Problem: Urinary Incontinence Goal: Perineal skin integrity is maintained or improved Outcome: Progressing Problem: Potential for Falls Goal: I will remain free of falls Outcome: Progressing Problem: Discharge Barriers Goal: My discharge needs are met Outcome: Progressing [facility] 08-02-2024 Hospital Discharg e instructions Gabriela Rosa RN - 08/02/2024 7:21 AM EDT Images from the original note were not included. Continuity of Care Form Patient Name: Gonzalo Deluca : 1955 Admit date: 07/30/2024 Discharge date: 08/08/24 Code Status Order: DNR-CCA Advance Directives: N Admitting Physician: Lauren Serna MD PCP: HERMINIA CASE MD Discharging Nurse: Gabriela Rosa RN Discharging Hospital Unit/Room#: B2-254/B2-254 B Discharging Unit Emergency Contact: Extended Emergency Contact Information Primary Emergency Contact: Karishma Deluca Address: [address] [place] [address] [place] [id number] [facility] Mobile Relation: Daughter Secondary Emergency Contact: Jace Deluca Mobile Relation: Son Past Surgical History: Past Surgical History: Procedure Laterality Date CYSTOSCOPY 01/12/2017 OFFICE PROCEDURE CYSTOSCOPY 02/11/2017 C&P bladder biopsy EYE SURGERY detached retina 1994 HYSTERECTOMY 11/06/2019 ABDOMINAL RADICAL HYSTERECTOMY WITH BSO AND PELVIC LYMPH; DR. ZIYAD MENENDEZ [facility] OTHER SURGICAL HISTORY Left 12/19/2019 Med Port POWER Regular Size OTHER SURGICAL HISTORY Left 11/07/2022 Percutaneous skeltal fixation femoral fracture TUBAL LIGATION 1992 Immunization History: Immunization History Administered Date(s) Administered Influenza, Unspecified 01/10/2018 Tdap 08/08/2016 Active Problems: Medical Problems Problem List * (Principal) Adult failure to thrive Other specified complication of vascular prosthetic devices, implants and grafts, initial encounter (HCC) Nondisplaced fracture of neck of left femur (HCC) Lumbar compression fracture, closed, initial encounter (HCC) Severe malnutrition (CMS/HCC) (HCC) Falls frequently Unintentional weight loss Debility PFO (patent foramen ovale) Poor venous access Chronic back pain COPD (chronic obstructive pulmonary disease) (HCC) Overview Signed 01/01/2022 6:48 AM by Interface, Incoming Problems- [facility] Conversion On home 3-4L NC DDD (degenerative disc disease), cervical Leukocytosis Malignant neoplasm of exocervix (HCC) Recurrent major depression (HCC) Pulmonary nodule Overview Signed 01/01/2022 6:48 AM by Interface, Incoming Problems- [facility] Conversion Per CT CHest 09/2015: 12 mm nodule (R), 5 mm nodule (L); unchanged CT Chest 08/2016 S/P hysterectomy Sciatica Shortness of breath Supplemental oxygen dependent PNA (pneumonia) H/O: CVA (cerebrovascular accident) Overview Signed 09/20/2023 5:32 PM by Ziyad Ovalles MD Lacunar event, per Neuro 11/2019. Former smoker Isolation/Infection: No active isolations No active infections Nurse Assessment: Last Vital Signs: BP 131/88 (BP Location: Right arm, Patient Position: Sitting) Pulse 95 Temp 36 C (96.8 F) (Temporal) Resp 22 Ht 1.626 m (5' 4") Wt 40.4 kg (89 lb) SpO2 95% BMI 15.28 kg/m Last documented pain score (0-10 scale): Last Weight: Wt Readings from Last 1 Encounters: 07/30/24 40.4 kg (89 lb) Mental Status: SHAMA Patient Mental Status: oriented and alert IV Access: SHAMA IV Access: None Nursing Mobility/ADLs: Walking Minimal assistance Transfer Minimal assistance Bathing Minimal assistance Dressing Independent Toileting Minimal assistance Feeding Independent Instrumentation Instructor Minimal assistance Med Delivery yes Wound Care Documentation and Therapy: Wound/Incision 05/21/22 Traumatic Eye Right (Active) Number of days: 803 Wound/Incision 05/21/22 Traumatic Wrist Left;Posterior (Active) Number of days: 803 Wound/Incision 11/07/22 Incision Leg Anterior;Left;Proximal;Upper (Active) Number of days: 633 Elimination: Continence: Bowel: yes Bladder: yes Urinary Catheter: None Colostomy/Ileostomy/Ileal Conduit: None Date of Last BM: 08/07/24 No intake or output data in the 24 hours ending 08/02/24 0721 No intake/output data recorded. Safety Concerns: at risk for falls Impairments/Disabilities: none Nutrition Therapy: Current Nutrition Therapy: Oral diet: general Routes of Feeding: oral Liquids: no restrictions Daily Fluid Restriction: no Last Modified Barium Swallow with Video (Video Swallowing Test): not done Treatments at the Time of Hospital Discharge: Respiratory Treatments: scheduled & PRN nebulizer treatments Oxygen Therapy: is on oxygen at 3 L/min per nasal cannula. Ventilator: No ventilator support Rehab Therapies: physical therapy and occupational therapy Weight Bearing Status/Restrictions: non-weight bearing LUE Other Medical Equipment (for information only, NOT a DME order): aliyah-walker Other Treatments: Patient's personal belongings (please select all that are sent with patient): glasses, dentures upper, and clothes RN SIGNATURE: MANAGEMENT/SOCIAL WORK SECTION Inpatient Status Date: 07/30/24 Discharging to Facility/ Agency Name: [facility] Address: [address] [place] [address] Fax: Dialysis Facility (if applicable) Name: Address: Dialysis Schedule: Phone: Fax: Skiing Instructor/[employer] signature: ICIAN SECTION Name: Gonzalo Deluca Prognosis: fair Condition at Discharge: stable Rehab Potential (if transferring to Rehab): good Recommended Labs or Other Treatments After Discharge: CBC and CMP The individual is being admitted to a nursing facility directly from an [facility] or a unit of a [facility] that is not operated by or licensed by [facility] under section 5119.14 or 5160-3-15.1 5 The individual requires the level of services provided by a nursing facility for the condition for which he or she was treated in the hospital and, Physician Certification: I certify the above information and transfer of Gonzalo Deluca is necessary for the continuing treatment of the diagnosis listed and that she requires usp facility for less than 30 days. Update Admission H&P: No change in H&P Summary of interval: 68-year-old female with a history of COPD who presents to the emergency department with worsening weight loss, failure to thrive, and increased shortness of breath. The patient reports significant weight loss, stating her weight has decreased to 89 pounds, with a total loss of 40 pounds. She describes increased anorexia, expressing no desire to eat or drink and feeling "just not hungry." The patient's shortness of breath, which is chronic due to her COPD, has worsened. She arrived at the emergency department requiring 3 liters of oxygen. Her baseline respiratory status includes chronic respiratory failure, requiring 3 liters of oxygen, and severe emphysema. In April, the patient experienced a fall resulting in left elbow pain, which has persisted since then. A fracture was identified on imaging, described as "several months old." The patient's condition has significantly impacted her overall health and functioning, leading to a failure to thrive diagnosis. Her severe malnourishment and unintentional weight loss have contributed to her debilitated state. The combination of her respiratory issues, chronic pain, and nutritional deficits has led to a decline in her overall health status. Recent healthcare interactions include consultations with [facility], palliative care, pulmonology, orthopedic surgery, geriatrics, and speech-language pathology. These consultations were initiated to address various aspects of her complex medical condition. VS on arrival HR 91, RR 18, BP 114/79, Spow 90 % on 3 liters. EKG showed heart rate of 95, normal sinus rhythm. Labs: Hemoglobin 11.2, MCP 103, glucose 80, albumin 3, folate low at 5.2. No WC in urine. Imaging: Left elbow fracture several months old. CT-CAP showed new red shaped sepulchral spats, opacity in left lower lobe, likely pneumonia or lung infarction. Multiple chronic osteoporotic compression fractures in thoracic and lumbar spine. Pulmonology was consulted for triple bacterial pneumonia in which she was treated, for Pseudomona, Moraxella and Streptocccus, on top of her severe pneumonia, with increased oxygen requirements on top of her chronic respiratory failure. Condition improved - SNF denied placement. P2P denied and appealed which was accepted. Failure to thrive with severe malnourishment Assessment: Patient has experienced significant unintentional weight loss of 40 pounds, with current weight at 89 pounds. She reports increased anorexia and no desire to eat or drink. Lab results show low albumin (3) and low folate (5.2), indicative of malnutrition. This condition is likely exacerbated by her chronic respiratory failure and severe emphysema. Plan: - METAL SMELTER evaluation: recommended regular solids with thin liquids, sitting upright, slow rate of intake, and small bites - Will likely need some extra supplementations - with boost and other nutrition on discharge Chronic respiratory failure with severe emphysema Polymicrobial pneumonia including Pseudomonas Moraxella in the Streptococcus, suspect aspiration Hx of h eavy tobacco abuse Assessment: Patient has a history of COPD with chronic shortness of breath on exertion. She arrived on 3 liters of oxygen, which is her baseline. Last PFT shows FEV1 of 11.4% and 50% predicted. CT chest shows severe pulmonary emphysema and new round-shaped septal spots, opacity in left lower lobe, possibly indicating pneumonia in which she was treated with total course of Cefepime. Plan: - Continue oxygen therapy at 3 liters - Pulmonology consultation - Continue bronchodilator therapy: Dulera and Spiriva with tapering dosing - Incentive spirometry - continue outpatient - Outpatient pulmonary function testing to get new baseline PFTs Chronic pain (left elbow fracture) L-supracondylar humerus fracture related to severe osteoporosis Assessment: Patient reports left elbow pain since a fall in April. Imaging confirms a left elbow fracture several months old. [facility] was [facility]. Plan: - Continue Tylenol 650 mg BID - Morphine 15 mg Q4 hours for pain and shortness of breath - Discontinued Flexeril during admission if she needs to restart a muscle relax use tizanidine instead per geriatrics Anxiety and depression Assessment: Patient is on multiple psychotropic medications for anxiety and depression management. Plan: - Continue: - Wellbutrin 150 mg PO daily - Effexor 150 mg daily - weaned off and discontinued during admission - Buspirone 15 mg BID - Mirtazapine 15 mg at bedtime - Adjust: - Decreased paroxetine from 40 mg to 30 mg daily - Changed Seroquel from 200 mg to 50 mg at bedtime - Discontinue: - Sudafed - Monitor for improvement in appetite with medication adjustments PHYSICIAN SIGNATURE: documented in this encounter [facility] 08-02-2024 Plan of care note Problem: Knowledge Deficit Goal: Patient/family/caregiver demonstrates understanding of disease process, treatment plan, medications, and discharge instructions Outcome: Progressing Problem: Potential for Compromised Skin Integrity Goal: Skin Integrity is Maintained or Improved Outcome: Progressing Goal: Nutritional status is improving Outcome: Progressing Problem: Urinary Incontinence Goal: Perineal skin integrity is maintained or improved Outcome: Progressing Problem: Potential for Falls Goal: I will remain free of falls Outcome: Progressing Problem: Discharge Barriers Goal: My discharge needs are met Outcome: Progressing [facility] 08-01-2024 Note Formatting of this n ote might be different from the original. Care Management Progress Note -Met with pt at bedside. Introduced self and role. -PT/OT recommending SNF. Pt is agreeable. -SNF list given to pt for her to look over for SNF choices. -Will follow up tomorrow for SNF choices. She also has contact information for CM in case she decides before then on choices. -custodial services manager to follow and assist as needed. Length of Stay (Days): 1 GMLOS: No GMLOS Documented [facility] 08-01-2024 Note Formatting of this n ote might be different from the original. Care Management Progress Note -Met with pt at bedside. Introduced self and role. -PT/OT recommending SNF. Pt is agreeable. -SNF list given to pt for her to look over for SNF choices. -Will follow up tomorrow for SNF choices. She also has contact information for CM in case she decides before then on choices. -custodial services manager to follow and assist as needed. Length of Stay (Days): 1 GMLOS: No GMLOS Documented [facility] 08-01-2024 Consult note Formatting of th is note is different from the original. [facility] [place] [address] [place] [id number] Patient - Gonzalo Deluca [facility] # - [id number] - 1955 Date of Admission - 07/30/2024 4:40 PM Date of evaluation - 08/01/2024 Room - B2-254/B2-254 B Hospital Day - 1 Consulting - Dejuan Bishop MD Primary Care Physician - HERMINIA CASE MD Active Hospital Problem List Problem List[1] Reason for Consult Severe emphysema History of Present Illness Gonzalo Deluca is a 68 y.o. female admitted for Weight loss failure to thrive Patient with a history of severe underlying emphysematous lung disease, chronic respiratory failure on home oxygen heavy tobacco use quit 6 years ago continues to vape lung nodules in the past thoracic compression fracture admitted with main complaint of losing weight almost 40 pounds in recent months poor appetite failure to thrive Underwent CT chest which did show severe emphysema Left lower lobe density, new in comparison to previous CAT scan Favor tiny lung nodule both lower lobes Patient having cough with phlegm however having difficulty coughing up the phlegm Denies any fever chills Rigor Shortness of breath more recently Denies any hemoptysis hematemesis melena hematuria Apparently not seeing any staff genetic counselor recently Was on Dulera Spiriva and rescue inhaler compliant with the medication Not on NIV No PFT available in epic Medical History Past Medical History Medical History[2] Past Surgical History Surgical History[3] Social History Social History Socioeconomic History Marital status: Spouse name: Not on file Number of children: Not on file Years of education: Not on file Highest education level: Not on file Occupational History Not on file Tobacco Use Smoking status: Former Current packs/day: 0.00 Average packs/day: 1.5 packs/day for 39.5 years (59.3 ttl pk-yrs) Types: Cigarettes Start date: 1972 Quit date: 09/20/2011 Years since quittin.8 Passive exposure: Past Smokeless tobacco: Never Tobacco comments: Quit smoking: pt states she quit 4-5 years ago Vaping Use Vaping status: Every Day Substances: Nicotine Devices: Refillable tank Substance and Sexual Activity Alcohol use: Not Currently Comment: Approx once a year Drug use: No Sexual activity: Defer Other Topics Concern Not on file Social History Narrative Not on file Social Drivers of Health Financial Resource Strain: Low Risk (07/31/2024) Overall Financial Resource Strain (CARDIA) Difficulty of Paying Living Expenses: Not hard at all Food Insecurity: No Food Insecurity (07/31/2024) Hunger Vital Sign Worried About Running Out of Food in the Last Year: Never true Ran Out of Food in the Last Year: Never true Transportation Needs: No Transportation Needs (07/31/2024) PRAPARE - Transportation Lack of Transportation (Medical): No Lack of Transportation (Non-Medical): No Recent Concern: Transportation Needs - Unmet Transportation Needs (06/06/2024) Received from [facility] PRAPARE - Transportation Lack of Transportation (Medical): Yes Lack of Transportation (Non-Medical): No Physical Activity: Insufficiently Active (07/31/2024) Exercise Vital Sign Days of Exercise per Week: 3 days Minutes of Exercise per Session: 20 min Stress: No Stress Concern Present (07/31/2024) [employer] - Occupational Stress Questionnaire Feeling of Stress : Only a little Recent Concern: Stress - Stress Concern Present (06/06/2024) Received from [facility] [employer] [employer] - Occupational Stress Questionnaire Feeling of Stress : To some extent Social Connections: Socially Isolated (07/31/2024) Social Connection and Isolation Panel [NHANES] Frequency of Communication with Friends and Family: Three times a week Frequency of Social Gatherings with Friends and Family: Three times a week Attends Judaism Services: Never Active Member of Clubs or Organizations: No Attends Club or Organization Meetings: Never Marital Status: Intimate Partner Violence: Not At Risk (07/31/2024) Humiliation, Afraid, Rape, and Kick questionnaire Fear of Current or Ex-Partner: No Emotionally Abused: No Physically Abused: No Sexually Abused: No Housing Stability: Low Risk (07/31/2024) Housing Stability Vital Sign Unable to Pay for Housing in the Last Year: No Number of Times Moved in the Last Year: 0 Homeless in the Last Year: No Family History Family History[4] Immunization History Immunization History Administered Date(s) Administered Influenza, Unspecified 01/10/2018 Tdap 08/08/2016 Medications Current Medications Scheduled Meds[5] PRN Mediations PRN Meds[6] IV Drips/Infusions Continuous Meds[7] Home Medications Current Outpatient Medications Medication Instructions albuterol 108 (90 Base) MCG/ACT inhaler 2 puffs, Every 4 hours PRN alendronate (FOSAMAX) 70 mg, Oral, Weekly aspirin 81 mg buPROPion XL (WELLBUTRIN XL) 150 mg, Oral, Daily busPIRone (BUSPAR) 15 mg, Oral, 2 times daily calcitonin (MIACALCIN) 50 Units, IntraMUSCular, Daily calcium carbonate-cholecalciferol (Oyster Shell) 250-3.125 MG-MCG tablet 1 tablet Diclofenac Sodium (VOLTAREN) 4 g, Topical, 2 times daily fluticasone (Flonase) 50 MCG/ACT nasal spray 2 sprays, Does not apply, Daily Fluticasone Furoate-Vilanterol (Breo Ellipta) 200-25 MCG/ACT aerosol powder 1 puff, Daily magnesium oxide (MAG-OX) 400 mg, Daily melatonin 3 mg, Oral, Nightly methocarbamol (ROBAXIN) 1,000 mg, Oral, Every 8 hours PRN mirtazapine (REMERON) 15 mg, Oral, Nightly montelukast (SINGULAIR) 10 mg, Nightly nicotine (Nicoderm, Step 1) 21 MG/24HR patch 1 patch, TransDERmal, Daily PARoxetine (PAXIL) 20 mg, Oral, Every morning QUEtiapine (SEROQUEL) 200 mg, Nightly tiotropium (Spiriva Respimat) 2.5 MCG/ACT inhaler 2 puffs, Daily Zinc 50 mg Allergies Allergies[8] Review of Systems General Denies any fever or chills HEENT Denies any diplopia, tinnitus or vertigo Resp See HPI Cardiac Denies any chest pain, palpitations, claudication or edema GI Denies any melena, hematochezia, hematemesis or pyrosis Marked weight loss/cachexia Denies any frequency, urgency, hesitancy or incontinence Heme Denies bruising or bleeding easily Neuro Denies any focal motor or sensory deficits Psychiatric Denies anxiety, depression, suicidal ideation Skin Denies rashes, itching, open sores Vitals height is 5' 4" (1.626 m) and weight is 89 lb (40.4 kg). Her temporal temperature is 36.9 C (98.5 F). Her blood pressure is 114/79 and her pulse is 91. Her respiration is 18 and oxygen saturation is 90%. Body mass index is 15.28 kg/m . 24 Hour intake and output Intake/Output Summary (Last 24 hours) at 08/01/2024 1201 Last data filed at 07/31/2024 1759 Gross per 24 hour Intake 325 ml Output -- Net 325 ml @[id number]@ Physical Exam General appearance: Awake, alert, no acute distress. However gets short of breath on talking Currently on 3 L nasal cannula saturation 88 to 90% HEENT: Normocephalic, atraumatic. Pupils equil and round, External ear normal, conjunctivae normal, negative for scleral icterus. No congestion. Neck: ROM normal, supple, trachea midline. No lymphadenopathy Cardiovascular: Regular rate and rhythm. Heart sounds normal. Negative for murmur, friction rub or gallop. Pulmonary: Effort normal, no respiratory distress/conversational dyspnea Increased AP diameter of the chest Markedly decreased breath sound Few basilar rales No wheezing No pleural rub Abdomen: Soft, non distended, non tender, bowel sounds normal. No palpable masses. No Hepatomegaly Musculoskeletal: ROM normal, Negative for swelling, tenderness or deformity. Skin: Warm, dry. Skin color, texture, turgor normal. Negative for rashes or lesions. Extremities: No clubbing, cyanosis, or extremity edema Neurological: No focal deficits. Alert and oriented x 3. Cranial nerves II-XII are intact Lymphatics: No cervical or axillary lymphadenopathy Psychiatric: Mood, behavior, thought content normal. Cooperative with exam. Labs CBC Results from last 7 days Lab Units 07/30/24 1729 WBC AUTO 10*3/uL 8.9 HEMOGLOBIN g/dL 11.2* HEMATOCRIT % 37.0 PLATELETS 10*3/uL 225 BMP: Results from last 7 days Lab Units 07/30/24 1729 SODIUM mmol/L 144 POTASSIUM mmol/L 5.0 CHLORIDE mmol/L 103 CO2 mmol/L 37* BUN mg/dL 16 CREATININE mg/dL 0.63 GLUCOSE mg/dL 80* CALCIUM mg/dL 8.8 ABG: LIVER PROFILE Results from last 7 days Lab Units 07/30/24 1729 ALK PHOS U/L 97 BILIRUBIN TOTAL mg/dL 0.2 BILIRUBIN DIRECT mg/dL 0.1 PROTEIN TOTAL g/dL 6.5 ALT U/L 10 AST U/L 21 INR PTT No results found for: "PTT" Cultures Radiology Exam Date/Time: 07/31/2024 15:25 Procedure: CT CHEST ABDOMEN PELVIS W CONTRAST Ordering Provider: SERNA DANIEL Reason For Exam: unexplained weight loss EXAMINATION: CT CHEST ABDOMEN PELVIS W CONTRAST CLINICAL HISTORY: unexplained weight loss COMPARISON: 10/16/2023 TECHNIQUE: Contiguous axial images were obtained through the chest abdomen and pelvis from the level of the thoracic inlet through the pubic symphysis following administration of intravenous contrast. Dose reduction was employed with automated exposure control. FINDINGS: Cardiovasculature: Heart size is normal. Left upper extremity PICC line with tip in the SVC. Normal caliber thoracic aorta. No central pulmonary emboli. Mediastinum/Pericardium: Small amount of pericardial fluid, similar to the prior. Lymph Nodes: No thoracic lymphadenopathy is evident Pleura: Unremarkable Central Airways: No airway nodules. Lungs: Severe diffuse emphysematous changes bilaterally. There is a new peripheral wedge-shaped airspace opacity posteriorly in the left lower lobe. A few tiny centrilobular nodules are also noted in both lower lobes. No other sites of airspace consolidation. Hepatobiliary: No suspicious hepatic lesions. The gallbladder is contracted. Pancreas: Unremarkable Spleen: Unremarkable Adrenal Glands: Unremarkable Kidneys, ureters, and bladder: No calculi or hydroureteronephrosis. Abdominal and pelvic vasculature: Unremarkable GI tract: No evidence of obstruction. The appendix is not visualized. Peritoneum and retroperitoneum: No free fluid or free air is noted. Lymph Nodes: No abdominal or pelvic lymphadenopathy is evident. Pelvis: Unremarkable Visualized musculoskeletal structures: Remote ORIF of the left hip. Chronic osteoporotic compression fractures of the T6-T9, T11, and L2-L4 vertebral bodies. No destructive bone lesion or acute fractures. IMPRESSION: 1. New wedge-shaped subpleural airspace opacity in the left lower lobe is most likely either focal pneumonia or a lung infarct. Neoplasm is unlikely, but follow-up to resolution is recommended. 2. No acute findings in the abdomen or pelvis. 3. Multiple chronic osteoporotic compression fractures in the thoracic and lumbar spine. 4. Severe pulmonary emphysema. 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 Patient emphysema clinically as well as radiologically appears to be severe no current PFT available on [facility] 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 in weight loss Left lower lobe density pneumonia versus atelectasis favor later Sputum culture Incentive spirometry Will need follow-up CT chest short-term for left lower lobe density Continue bronchodilator therapy patient was on Dulera and Spiriva Tapering dose of steroid we are going slow tapering dose on prednisone that will also help her appetite Complete pulmonary function test as an outpatient Follow-up with pulmonary office postdischarge Advance Directive: DNR-CCA Case discussed with nurse and patient Questions and concerns addressed. Total time 60 minutes on this day of encounter includes counseling, coordinating plan of care, record and documentation review before and after visit including documentation and time not explicitly included on EMR time stamp for accounting for open encounter. Portions of the information within this encounter were entered using an electronic dictation system. Best attempts were made to edit/proofread the information prior to note completion. Despite the review of information, some errors may remain. If there are questions related to the information contained within the note please contact the signing provider directly. [1] Patient Active Problem List Diagnosis Poor venous access Other specified complication of vascular prosthetic devices, implants and grafts, initial encounter (HCC) Chronic back pain COPD (chronic obstructive pulmonary disease) (HCC) DDD (degenerative disc disease), cervical Leukocytosis Malignant neoplasm of exocervix (HCC) Recurrent major depression (HCC) Pulmonary nodule S/P hysterectomy Sciatica Shortness of breath Supplemental oxygen dependent PNA (pneumonia) H/O: CVA (cerebrovascular accident) Former smoker Nondisplaced fracture of neck of left femur (HCC) Lumbar compression fracture, closed, initial encounter (HCC) Severe malnutrition (CMS/HCC) (HCC) Falls frequently Unintentional weight loss Debility PFO (patent foramen ovale) Adult failure to thrive [2] Past Medical History: Diagnosis Date Abnormal stress test Acute exacerbation of chronic obstructive pulmonary disease (HCC) 04/12/2018 Allergic rhinitis Arthritis Asthma Bronchitis Cancer (CMS/HCC) (HCC) skin Cervical cancer (HCC) Chest pain COPD (chronic obstructive pulmonary disease) (HCC) USE OXYGEN 3 L AT NIGHT DDD (degenerative disc disease), cervical Defect, retina, with detachment right DJD (degenerative joint disease), lumbar Emphysema lung (HCC) Former smoker Hematuria SCHEDULED FOR THE PROCEDURE /SURGERY ON 02/11/2017 Hypokalemia Lung nodules Near syncope 09/19/2023 Osteoporosis Palpitations Pneumonia Recurrent major depression (HCC) Sciatica Thoracic compression fracture (HCC) Vitamin D deficiency [3] Past Surgical History: Procedure Laterality Date CYSTOSCOPY 01/12/2017 OFFICE PROCEDURE CYSTOSCOPY 02/11/2017 C&P bladder biopsy EYE SURGERY detached retina 1994 HYSTERECTOMY 11/06/2019 ABDOMINAL RADICAL HYSTERECTOMY WITH BSO AND PELVIC LYMPH; DR. ZIYAD MENENDEZ [facility] OTHER SURGICAL HISTORY Left 12/19/2019 Med Port POWER Regular Size OTHER SURGICAL HISTORY Left 11/07/2022 Percutaneous skeltal fixation femoral fracture TUBAL LIGATION 1992 [4] Family History Problem Relation Name Age of Onset Colon cancer Neg Hx Ovarian cancer Neg Hx Cancer Mother breast- to liver Cancer Sister breast Cancer Father lung to brain No Known Problems Brother Uterine cancer Neg Hx [5] acetaminophen, 650 mg, Oral, BID aspirin, 81 mg, Oral, Daily buPROPion XL, 150 mg, Oral, Daily busPIRone, 15 mg, Oral, BID calcitonin, 50 Units, IntraMUSCular, Daily enoxaparin, 30 mg, SubCUTAneous, Daily fluticasone, 2 spray, Each Nostril, Daily melatonin, 3 mg, Oral, Nightly methylPREDNISolone sod suc (PF), 20 mg, IntraVENous, q12h mirtazapine, 15 mg, Oral, Nightly mometasone-formoterol, 2 puff, Inhalation, BID montelukast, 10 mg, Oral, Nightly PARoxetine, 20 mg, Oral, q AM tiotropium, 2 puff, Inhalation, Daily [6] PRN medications: acetaminophen OR acetaminophen, albuterol, cyclobenzaprine, morphine, naloxone, ondansetron ODT OR ondansetron, polyethylene glycol (PEG) 3350, QUEtiapine [7] [8] Allergies Allergen Reactions Pollen Extract Unknown [facility] 08-01-2024 Consult note Formatting of th is note is different from the original. [facility] [place] [address] [place] [address] Patient - Gonzalo Deluca - 1955 Date of Admission - 07/30/2024 4:40 PM Date of evaluation - 08/01/2024 Room - B2-254/B2-254 B Hospital Day - 1 Consulting - Dejuan Bishop MD Primary Care Physician - HERMINIA CASE MD Active Hospital Problem List Problem List[1] Reason for Consult Severe emphysema History of Present Illness Gonzalo Deluca is a 68 y.o. female admitted for Weight loss failure to thrive Patient with a history of severe underlying emphysematous lung disease, chronic respiratory failure on home oxygen heavy tobacco use quit 6 years ago continues to vape lung nodules in the past thoracic compression fracture admitted with main complaint of losing weight almost 40 pounds in recent months poor appetite failure to thrive Underwent CT chest which did show severe emphysema Left lower lobe density, new in comparison to previous CAT scan Favor tiny lung nodule both lower lobes Patient having cough with phlegm however having difficulty coughing up the phlegm Denies any fever chills Rigor Shortness of breath more recently Denies any hemoptysis hematemesis melena hematuria Apparently not seeing any staff genetic counselor recently Was on Dulera Spiriva and rescue inhaler compliant with the medication Not on NIV No PFT available in epic Medical History Past Medical History Medical History[2] Past Surgical History Surgical History[3] Social History Social History Socioeconomic History Marital status: Spouse name: Not on file Number of children: Not on file Years of education: Not on file Highest education level: Not on file Occupational History Not on file Tobacco Use Smoking status: Former Current packs/day: 0.00 Average packs/day: 1.5 packs/day for 39.5 years (59.3 ttl pk-yrs) Types: Cigarettes Start date: 1972 Quit date: 09/20/2011 Years since quittin.8 Passive exposure: Past Smokeless tobacco: Never Tobacco comments: Quit smoking: pt states she quit 4-5 years ago Vaping Use Vaping status: Every Day Substances: Nicotine Devices: Refillable tank Substance and Sexual Activity Alcohol use: Not Currently Comment: Approx once a year Drug use: No Sexual activity: Defer Other Topics Concern Not on file Social History Narrative Not on file Social Drivers of Health Financial Resource Strain: Low Risk (07/31/2024) Overall Financial Resource Strain (CARDIA) Difficulty of Paying Living Expenses: Not hard at all Food Insecurity: No Food Insecurity (07/31/2024) Hunger Vital Sign Worried About Running Out of Food in the Last Year: Never true Ran Out of Food in the Last Year: Never true Transportation Needs: No Transportation Needs (07/31/2024) PRAPARE - Transportation Lack of Transportation (Medical): No Lack of Transportation (Non-Medical): No Recent Concern: Transportation Needs - Unmet Transportation Needs (06/06/2024) Received from [facility] PRAPARE - Transportation Lack of Transportation (Medical): Yes Lack of Transportation (Non-Medical): No Physical Activity: Insufficiently Active (07/31/2024) Exercise Vital Sign Days of Exercise per Week: 3 days Minutes of Exercise per Session: 20 min Stress: No Stress Concern Present (07/31/2024) [employer] - Occupational Stress Questionnaire Feeling of Stress : Only a little Recent Concern: Stress - Stress Concern Present (06/06/2024) Received from [facility] [employer] [employer] - Occupational Stress Questionnaire Feeling of Stress : To some extent Social Connections: Socially Isolated (07/31/2024) Social Connection and Isolation Panel [NHANES] Frequency of Communication with Friends and Family: Three times a week Frequency of Social Gatherings with Friends and Family: Three times a week Attends Judaism Services: Never Active Member of Clubs or Organizations: No Attends Club or Organization Meetings: Never Marital Status: Intimate Partner Violence: Not At Risk (07/31/2024) Humiliation, Afraid, Rape, and Kick questionnaire Fear of Current or Ex-Partner: No Emotionally Abused: No Physically Abused: No Sexually Abused: No Housing Stability: Low Risk (07/31/2024) Housing Stability Vital Sign Unable to Pay for Housing in the Last Year: No Number of Times Moved in the Last Year: 0 Homeless in the Last Year: No Family History Family History[4] Immunization History Immunization History Administered Date(s) Administered Influenza, Unspecified 01/10/2018 Tdap 08/08/2016 Medications Current Medications Scheduled Meds[5] PRN Mediations PRN Meds[6] IV Drips/Infusions Continuous Meds[7] Home Medications Current Outpatient Medications Medication Instructions albuterol 108 (90 Base) MCG/ACT inhaler 2 puffs, Every 4 hours PRN alendronate (FOSAMAX) 70 mg, Oral, Weekly aspirin 81 mg buPROPion XL (WELLBUTRIN XL) 150 mg, Oral, Daily busPIRone (BUSPAR) 15 mg, Oral, 2 times daily calcitonin (MIACALCIN) 50 Units, IntraMUSCular, Daily calcium carbonate-cholecalciferol (Oyster Shell) 250-3.125 MG-MCG tablet 1 tablet Diclofenac Sodium (VOLTAREN) 4 g, Topical, 2 times daily fluticasone (Flonase) 50 MCG/ACT nasal spray 2 sprays, Does not apply, Daily Fluticasone Furoate-Vilanterol (Breo Ellipta) 200-25 MCG/ACT aerosol powder 1 puff, Daily magnesium oxide (MAG-OX) 400 mg, Daily melatonin 3 mg, Oral, Nightly methocarbamol (ROBAXIN) 1,000 mg, Oral, Every 8 hours PRN mirtazapine (REMERON) 15 mg, Oral, Nightly montelukast (SINGULAIR) 10 mg, Nightly nicotine (Nicoderm, Step 1) 21 MG/24HR patch 1 patch, TransDERmal, Daily PARoxetine (PAXIL) 20 mg, Oral, Every morning QUEtiapine (SEROQUEL) 200 mg, Nightly tiotropium (Spiriva Respimat) 2.5 MCG/ACT inhaler 2 puffs, Daily Zinc 50 mg Allergies Allergies[8] Review of Systems General Denies any fever or chills HEENT Denies any diplopia, tinnitus or vertigo Resp See HPI Cardiac Denies any chest pain, palpitations, claudication or edema GI Denies any melena, hematochezia, hematemesis or pyrosis Marked weight loss/cachexia Denies any frequency, urgency, hesitancy or incontinence Heme Denies bruising or bleeding easily Neuro Denies any focal motor or sensory deficits Psychiatric Denies anxiety, depression, suicidal ideation Skin Denies rashes, itching, open sores Vitals height is 5' 4" (1.626 m) and weight is 89 lb (40.4 kg). Her temporal temperature is 36.9 C (98.5 F). Her blood pressure is 114/79 and her pulse is 91. Her respiration is 18 and oxygen saturation is 90%. Body mass index is 15.28 kg/m . 24 Hour intake and output Intake/Output Summary (Last 24 hours) at 08/01/2024 1201 Last data filed at 07/31/2024 1759 Gross per 24 hour Intake 325 ml Output -- Net 325 ml @[id number]@ Physical Exam General appearance: Awake, alert, no acute distress. However gets short of breath on talking Currently on 3 L nasal cannula saturation 88 to 90% HEENT: Normocephalic, atraumatic. Pupils equil and round, External ear normal, conjunctivae normal, negative for scleral icterus. No congestion. Neck: ROM normal, supple, trachea midline. No lymphadenopathy Cardiovascular: Regular rate and rhythm. Heart sounds normal. Negative for murmur, friction rub or gallop. Pulmonary: Effort normal, no respiratory distress/conversational dyspnea Increased AP diameter of the chest Markedly decreased breath sound Few basilar rales No wheezing No pleural rub Abdomen: Soft, non distended, non tender, bowel sounds normal. No palpable masses. No Hepatomegaly Musculoskeletal: ROM normal, Negative for swelling, tenderness or deformity. Skin: Warm, dry. Skin color, texture, turgor normal. Negative for rashes or lesions. Extremities: No clubbing, cyanosis, or extremity edema Neurological: No focal deficits. Alert and oriented x 3. Cranial nerves II-XII are intact Lymphatics: No cervical or axillary lymphadenopathy Psychiatric: Mood, behavior, thought content normal. Cooperative with exam. Labs CBC Results from last 7 days Lab Units 07/30/24 1729 WBC AUTO 10*3/uL 8.9 HEMOGLOBIN g/dL 11.2* HEMATOCRIT % 37.0 PLATELETS 10*3/uL 225 BMP: Results from last 7 days Lab Units 07/30/24 1729 SODIUM mmol/L 144 POTASSIUM mmol/L 5.0 CHLORIDE mmol/L 103 CO2 mmol/L 37* BUN mg/dL 16 CREATININE mg/dL 0.63 GLUCOSE mg/dL 80* CALCIUM mg/dL 8.8 ABG: LIVER PROFILE Results from last 7 days Lab Units 07/30/24 1729 ALK PHOS U/L 97 BILIRUBIN TOTAL mg/dL 0.2 BILIRUBIN DIRECT mg/dL 0.1 PROTEIN TOTAL g/dL 6.5 ALT U/L 10 AST U/L 21 INR PTT No results found for: "PTT" Cultures Radiology Exam Date/Time: 07/31/2024 15:25 Procedure: CT CHEST ABDOMEN PELVIS W CONTRAST Ordering Provider: SERNA DANIEL Reason For Exam: unexplained weight loss EXAMINATION: CT CHEST ABDOMEN PELVIS W CONTRAST CLINICAL HISTORY: unexplained weight loss COMPARISON: 10/16/2023 TECHNIQUE: Contiguous axial images were obtained through the chest abdomen and pelvis from the level of the thoracic inlet through the pubic symphysis following administration of intravenous contrast. Dose reduction was employed with automated exposure control. FINDINGS: Cardiovasculature: Heart size is normal. Left upper extremity PICC line with tip in the SVC. Normal caliber thoracic aorta. No central pulmonary emboli. Mediastinum/Pericardium: Small amount of pericardial fluid, similar to the prior. Lymph Nodes: No thoracic lymphadenopathy is evident Pleura: Unremarkable Central Airways: No airway nodules. Lungs: Severe diffuse emphysematous changes bilaterally. There is a new peripheral wedge-shaped airspace opacity posteriorly in the left lower lobe. A few tiny centrilobular nodules are also noted in both lower lobes. No other sites of airspace consolidation. Hepatobiliary: No suspicious hepatic lesions. The gallbladder is contracted. Pancreas: Unremarkable Spleen: Unremarkable Adrenal Glands: Unremarkable Kidneys, ureters, and bladder: No calculi or hydroureteronephrosis. Abdominal and pelvic vasculature: Unremarkable GI tract: No evidence of obstruction. The appendix is not visualized. Peritoneum and retroperitoneum: No free fluid or free air is noted. Lymph Nodes: No abdominal or pelvic lymphadenopathy is evident. Pelvis: Unremarkable Visualized musculoskeletal structures: Remote ORIF of the left hip. Chronic osteoporotic compression fractures of the T6-T9, T11, and L2-L4 vertebral bodies. No destructive bone lesion or acute fractures. IMPRESSION: 1. New wedge-shaped subpleural airspace opacity in the left lower lobe is most likely either focal pneumonia or a lung infarct. Neoplasm is unlikely, but follow-up to resolution is recommended. 2. No acute findings in the abdomen or pelvis. 3. Multiple chronic osteoporotic compression fractures in the thoracic and lumbar spine. 4. Severe pulmonary emphysema. 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 Patient emphysema clinically as well as radiologically appears to be severe no current PFT available on [facility] 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 in weight loss Left lower lobe density pneumonia versus atelectasis favor later Sputum culture Incentive spirometry Will need follow-up CT chest short-term for left lower lobe density Continue bronchodilator therapy patient was on Dulera and Spiriva Tapering dose of steroid we are going slow tapering dose on prednisone that will also help her appetite Complete pulmonary function test as an outpatient Follow-up with pulmonary office postdischarge Advance Directive: DNR-CCA Case discussed with nurse and patient Questions and concerns addressed. Total time 60 minutes on this day of encounter includes counseling, coordinating plan of care, record and documentation review before and after visit including documentation and time not explicitly included on EMR time stamp for accounting for open encounter. Portions of the information within this encounter were entered using an electronic dictation system. Best attempts were made to edit/proofread the information prior to note completion. Despite the review of information, some errors may remain. If there are questions related to the information contained within the note please contact the signing provider directly. [1] Patient Active Problem List Diagnosis Poor venous access Other specified complication of vascular prosthetic devices, implants and grafts, initial encounter (HCC) Chronic back pain COPD (chronic obstructive pulmonary disease) (HCC) DDD (degenerative disc disease), cervical Leukocytosis Malignant neoplasm of exocervix (HCC) Recurrent major depression (HCC) Pulmonary nodule S/P hysterectomy Sciatica Shortness of breath Supplemental oxygen dependent PNA (pneumonia) H/O: CVA (cerebrovascular accident) Former smoker Nondisplaced fracture of neck of left femur (HCC) Lumbar compression fracture, closed, initial encounter ([facility]) Severe malnutrition (CMS/HCC) ([facility]) Falls frequently Unintentional weight loss Debility PFO (patent foramen ovale) Adult failure to thrive [2] Past Medical History: Diagnosis Date Abnormal stress test Acute exacerbation of chronic obstructive pulmonary disease ([facility]) 04/12/2018 Allergic rhinitis Arthritis Asthma Bronchitis Cancer (CMS/HCC) ([facility]) skin Cervical cancer (HCC) Chest pain COPD (chronic obstructive pulmonary disease) ([facility]) USE OXYGEN 3 L AT NIGHT DDD (degenerative disc disease), cervical Defect, retina, with detachment right DJD (degenerative joint disease), lumbar Emphysema lung ([facility]) Former smoker Hematuria SCHEDULED FOR THE PROCEDURE /SURGERY ON 02/11/2017 Hypokalemia Lung nodules Near syncope 09/19/2023 Osteoporosis Palpitations Pneumonia Recurrent major depression ([facility]) Sciatica Thoracic compression fracture ([facility]) Vitamin D deficiency [3] Past Surgical History: Procedure Laterality Date CYSTOSCOPY 01/12/2017 OFFICE PROCEDURE CYSTOSCOPY 02/11/2017 C&P bladder biopsy EYE SURGERY detached retina 1994 HYSTERECTOMY 11/06/2019 ABDOMINAL RADICAL HYSTERECTOMY WITH BSO AND PELVIC LYMPH; DR. ZIYAD MENENDEZ [facility] OTHER SURGICAL HISTORY Left 12/19/2019 Med Port POWER Regular Size OTHER SURGICAL HISTORY Left 11/07/2022 Percutaneous skeltal fixation femoral fracture TUBAL LIGATION 1992 [4] Family History Problem Relation Name Age of Onset Colon cancer Neg Hx Ovarian cancer Neg Hx Cancer Mother breast- to liver Cancer Sister breast Cancer Father lung to brain No Known Problems Brother Uterine cancer Neg Hx [5] acetaminophen, 650 mg, Oral, BID aspirin, 81 mg, Oral, Daily buPROPion XL, 150 mg, Oral, Daily busPIRone, 15 mg, Oral, BID calcitonin, 50 Units, IntraMUSCular, Daily enoxaparin, 30 mg, SubCUTAneous, Daily fluticasone, 2 spray, Each Nostril, Daily melatonin, 3 mg, Oral, Nightly methylPREDNISolone sod suc (PF), 20 mg, IntraVENous, q12h mirtazapine, 15 mg, Oral, Nightly mometasone-formoterol, 2 puff, Inhalation, BID montelukast, 10 mg, Oral, Nightly PARoxetine, 20 mg, Oral, q AM tiotropium, 2 puff, Inhalation, Daily [6] PRN medications: acetaminophen OR acetaminophen, albuterol, cyclobenzaprine, morphine, naloxone, ondansetron ODT OR ondansetron, polyethylene glycol (PEG) 3350, QUEtiapine [7] [8] Allergies Allergen Reactions Pollen Extract Unknown Associated Order(s): IP CONSULT TO DIETITIAN Images from the original note were not included. Nutrition Assessment Type and Reason for Visit: Initial, Consult (poor po - needs high calorie supplement) Nutrition Recommendations/Plan: Suggest to continue regular diet to promote intake. Upper dentures not here- denies issues -denies assist status- METAL SMELTER ordered per MNT protocol , will initiate vanilla Ensure Plus hi pro( 350 alexus, 20 gm pro/serving) and brown Ensure plus ( 350 alexus, 13 gm pro/serving) Please document PO intakes-diet and ONS- consistently in the flowsheet to better assess intake adequacy. Suggest folate supplement- check vit d status . Suggest daily mvi. Continue remeron. Monitor labs, status, intake to reassess. Follow up weekly Malnutrition Assessment: Malnutrition Status: Severe malnutrition (copd) Context: Chronic Illness Findings of the 6 clinical characteristics of malnutrition: Energy Intake: 75% or less estimated energy requirements for 1 month or longer Weight Loss: Greater than 20% over 1 year (29% in 1 year) Body Fat Loss: Severe body fat loss Orbital, Buccal region Muscle Mass Loss: Severe muscle mass loss Temples (temporalis), Scapula (trapezius), Hand (interosseous) Fluid Accumulation: No significant fluid accumulation Hotel Controller Strength: na Associated Order(s): IP CONSULT TO PALLIATIVE CARE Images from the original note were not included. Palliative Care Initial Consult Chief Complaint: Gonzalo Deluca is a 68 y.o. female with chief complaint of fall, unintentional weight loss. Palliative Care is actively following. Assessment/Plan Goals of care Gonzalo Deluca retains capacity for medical decision-making -legal surrogate decision maker is unknown, daughter listed in emergency contacts-->Karishma Deluca ( ) -see subjective for details of conversation -goals of care include: 1) improve SOB Fall L Elbow fracture Debility, FTT -Worsening functional status at home. -She lives with her daughter, mainly stays on 2nd floor in her room where she has microwave and fridge. -She is really not able to go up and down steps well. -PT/OT. -Pulmonary rehab??? -Monitor. Unintentional weight loss Pulmonary cachexia -Patient is severely malnourished appearing. -Noted that reports that she is not hungry and when she does try to eat she is full only after a few bites. -Endorses feeling very short of breath when trying to eat. -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 -Child Development Teacher would be helpful. -BMI 15.28 -Albumin-->3.0 -Monitor. Chronic respiratory failure Dyspnea Severe emphysema -3L baseline. Worsening SOB as of late. -Chronically on percocet, but does not endorse this helping with shortness of breath. -Rotating to MSIR 7.5 mg Q4 hour PRN pain/SOB. -PFT last done in 2016-->FEV1/FVC reduced, FEV1 1.45, 50% predicted. No bronchodilator response. Severe obstructive ventilatory defect with evidence of gas trapping, no evidence of hyperinflation or bronchodilator response. -Appears that she has not seen pulmonology in quite sometime. -Would likely be worth having pulmonology see her this admission to establish and then f/u outpatient. -Discussion around code status today. Discussed with her the likelihood that she would not come off of a ventilator if put on one, she is still OK with short term intubation at this time. -CXR reviewed 07-30-->No acute cardiopulmonary abnormality identified. Chronic appearing lung changes. -CT CAP 07-31-->New wedge-shaped subpleural airspace opacity in the left lower lobe is most likely either focal pneumonia or a lung infarct. Neoplasm is unlikely, but follow-up to resolution is recommended. No acute findings in the abdomen or pelvis. Multiple chronic osteoporotic compression fractures in the thoracic and lumbar spine. Severe pulmonary emphysema. -monitor. Continue to follow. Palliative Care Encounter -Code Status: DNR-CCA - will continue to follow for ongoing monitoring of progression of Dyspnea as well as for appropriateness for hospice care due to COPD and Respiratory Failure PC Time Stamp: Total of 90 minutes spent on this encounter including Chart review, Patient visit and exam, Documentation in EHR, Care coordination, Communicating with primary attending or other consultants, Electronic order planner of medications, tests or procedures, Obtaining and/or reviewing separately obtained history, and Counseling and educating patient/family/caregiver. Discharge planning: Not ready for discharge due to uncontrolled symptoms Patient meets criteria for general inpatient hospice care: No Palliative Care IDT members involved: None Discussed the plan of care with the other interdisciplinary team (IDT) members of the Palliative Care and Hospice teams and Patient. Subjective: Subjective/Events Gonzalo Deluca is a 68 y.o. female with PMH of severe COPD, emphysema, tobacco abuse, OP, MDD, DDD, chronic respiratory failure on 3L. Presents for worsening debility, FTT , Falls, unintentional weight loss and worsening dyspnea. Noted L elbow pain and imaging revealing acute fracture on imaging. Orthopedics consulted. She continues to have worsening functional status at home. Noted that she has very poor appetite and only eats one time a day. O2 concentrator is not working and she has no supplies at home? She was sent to ER from her PCP office for concern of worsening failure to thrive. Palliative care consulted for goals of care and non-pain symptoms. She is seen today, in bed. She is cachetic appearing. NC in place. Some conversational dyspnea. Shortness of breath reported with minimal to no relief from oxycodone. Has been on percocet chronically for years. [facility]B. Would refer to home/OP palliative care for ongoing goals of care discussions. NAEON. Continue to follow. All other systems reviewed and negative. Return tomorrow. Pain Assessment No pain Advance Care Planning Advanced Care Planning Conversation Pertinent Diagnosis/es: severe COPD, chronic respiratory failure The patient and/or surrogate consented to a voluntary Advance Care Planning conversation. Gonzalo Deluca retains capacity for medical decision-making Individuals present included: Patient. Summary of the conversation: -Introduced the palliative care service to the patient and/or family. Discussed that we see patients with serious illnesses. Our role is to assist with pain and symptom management and to support the patient and family to promote quality of life. We at times also assist in discussions regarding goals of care and clinical decisions. -Discussed symptoms and goals of care extensively. -Discussed that likely her nutritional status is 2/2 pulmonary cachexia as mentioned above. Encouraged continued PO intake as she is able. -Briefly discussed that this will continue to progress and started discussion around hospice LOC, patient states she is not ready for this at this time. -Will refer to palliative care outpatient. -Reviewed with patient and family that, given multiple medical co-morbidities in the setting of advanced age, if patient were to have cardiac arrest the chances of surviving CPR would be low. Reviewed that if survived cardiac arrest, patient would likely not return to prior level of function. -Noted that patient continues to state that she would be ok with short term intubation, if needed but would absolutely not want CPR under any circumstance. -Questions answered, concerns addressed, emotional support provided. Outcome of the conversation: Decision to change code status to DNRCCA and allow intubation, if necessary Advance Directives were explained including HCPOA, Living Will and/or DNR. This is the first significant conversation I have had with this patient about advanced care planning. I spent 40 minutes providing separately identifiable ACP services with the patient and/or surrogate decision maker in a voluntary conversation discussing the patient's goals, values, and preferences as detailed in the note above. Imelda Bernard, LAMINATING PRESS OPERATOR - AN/SSN 2 4 OPERATOR Palliative Care Assessments: Goals of care: Continue Current Management, Live Longer, extend life as much as possible, Improve or Maintain Function/Quality of Life, Preserve [place]/Autonomy/Control, and Remain at Home Advanced Directives: DNR Functional Assessment: PPS 70% amb reduced; can't do normal work/some disease; full self care; normal or reduced intake; full LOC Prognosis: depends upon goals of care Spiritual Assessment: No spiritual distress identified Bereavement and Grief: To Be Determined PDMP/OARRS Reviewed: Yes-reviewed Social history: Marital status: Children: not addressed Living status: with daughter Work history: retired status: No Judaism sahrla: None ROS: See palliative care ROS/ESAS below; All other systems were reviewed and are negative. [place] Symptom Assessment Score [place] Score Pain Score (if non-verbal, add .FLACC below) 0 Tiredness Score 0 Nausea Score 0 Depression Score 0 Anxiety Score 0 Drowsiness Score 0 Anorexia Score (0= eating well, 10= not eating) 7 Wellbeing Score (10= worst sense of well-being) 6 Constipation 0 Dyspnea Score (0= no shortness of breath) 5 Family Meeting: Participants: patient Family meeting was held to discuss:Goals of Care and Symptom Management Medical History[1] Surgical History[2] Family History[3] Unable to obtain family history due to N/A- family history available Allergies[4] Objective: BP 106/70 (BP Location: Right arm, Patient Position: Lying) Pulse 85 Temp (!) 35.8 C (96.5 F) (Temporal) Resp 14 Ht 5' 4" (1.626 m) Wt 89 lb (40.4 kg) SpO2 94% BMI 15.28 kg/m Physical Exam Vitals and nursing note reviewed. Constitutional: General: She is awake. She is not in acute distress. Appearance: She is cachectic. She is ill-appearing. Interventions: Nasal cannula in place. HENT: Head: Normocephalic. Nose: Nose normal. Mouth/Throat: Mouth: Mucous membranes are moist. Pharynx: Oropharynx is clear. Eyes: General: Right eye: No discharge. Left eye: No discharge. Extraocular Movements: Extraocular movements intact. Pupils: Pupils are equal, round, and reactive to light. Cardiovascular: Rate and Rhythm: Normal rate and regular rhythm. Pulses: Normal pulses. Heart sounds: Normal heart sounds. No murmur heard. Pulmonary: Effort: Pulmonary effort is normal. No respiratory distress. Breath sounds: Normal breath sounds. Abdominal: General: Abdomen is flat. There is no distension. Palpations: Abdomen is soft. Tenderness: There is no abdominal tenderness. Musculoskeletal: Cervical back: Normal range of motion and neck supple. Right lower leg: No edema. Left lower leg: No edema. Skin: General: Skin is warm and dry. Capillary Refill: Capillary refill takes less than 2 seconds. Coloration: Skin is pale. Neurological: Mental Status: She is alert and oriented to person, place, and time. Mental status is at baseline. Psychiatric: Mood and Affect: Mood normal. Behavior: Behavior normal. Behavior is cooperative. Thought Content: Thought content normal. Judgment: Judgment normal. Medication information: 24-hour PRN meds received: oxycodone 5 mg x3 Results/Verification of Data Review Objective data reviewed (must include dates reviewed for labs, imaging reports and other specialty notes): BMP, CBC 08/01/24 CXR 08/01/24 Data in Support of Terminal Illness: Is patient hospice appropriate? Eligible, but not consistent with C at this time Transition Note Initiated: yes DB Aggarwal CNP [1] Past Medical History: Diagnosis Date Abnormal stress test Acute exacerbation of chronic obstructive pulmonary disease (HCC) 04/12/2018 Allergic rhinitis Arthritis Asthma Bronchitis Cancer (CMS/HCC) (HCC) skin Cervical cancer (HCC) Chest pain COPD (chronic obstructive pulmonary disease) (HCC) USE OXYGEN 3 L AT NIGHT DDD (degenerative disc disease), cervical Defect, retina, with detachment right DJD (degenerative joint disease), lumbar Emphysema lung (HCC) Former smoker Hematuria SCHEDULED FOR THE PROCEDURE /SURGERY ON 02/11/2017 Hypokalemia Lung nodules Near syncope 09/19/2023 Osteoporosis Palpitations Pneumonia Recurrent major depression (HCC) Sciatica Thoracic compression fracture (HCC) Vitamin D deficiency [2] Past Surgical History: Procedure Laterality Date CYSTOSCOPY 01/12/2017 OFFICE PROCEDURE CYSTOSCOPY 02/11/2017 C&P bladder biopsy EYE SURGERY detached retina 1994 HYSTERECTOMY 11/06/2019 ABDOMINAL RADICAL HYSTERECTOMY WITH BSO AND PELVIC LYMPH; DR. ZIYAD MENENDEZ [facility] OTHER SURGICAL HISTORY Left 12/19/2019 Med Port POWER Regular Size OTHER SURGICAL HISTORY Left 11/07/2022 Percutaneous skeltal fixation femoral fracture TUBAL LIGATION 1992 [3] Family History Problem Relation Name Age of Onset Colon cancer Neg Hx Ovarian cancer Neg Hx Cancer Mother breast- to liver Cancer Sister breast Cancer Father lung to brain No Known Problems Brother Uterine cancer Neg Hx [4] Allergies Allergen Reactions Pollen Extract Unknown Cosigned by Ruth العراقي MD at 08/01/2024 5:26 PM EDT Associated Order(s): IP CONSULT TO GERIATRICS [facility] Geriatric Medicine Inpatient Consult Service Admission Date: 07/30/2024 Admission Status: INPATIENT Chief Complaint: weight loss Reason for Appointment Geriatrics consulted for "falls at home, failure to thrive" Assessment & Plan Principal Problem: Adult failure to thrive Falls Debility --contributing factors include medications, COPD, malnutrition, cognitive decline --uses a cane at baseline. --PT and OT eval pending --09/21/23 Vit D 30 --check TSH --on several medications that can contribute to falls. See below. --Palliative care consult pending --Consult ST due to swallowing issue --Family looking into [place] waiver Weight loss Malnutrition --poor appetite (ate well this am) --continue Mirtazapine --Palliative consult --dietary consult --recommend psychiatry outpatient follow up for further review of medications Anxiety Depression --Wellbutrin XL 150mg daily - continue at this time. Recommend weaning outpatient. May contribute to weight loss. --Buspirone 15mg BID - per dispense report: fills for TID. Patient reports taking BID. Continue. --Mirtazapine 15mg at HS - continue. --Paroxetine 40 mg daily - Risk of anticholinergic side effects (falls, confusion). Recommend slow wean to avoid withdrawal. Will decrease to 30 mg daily. Further wean outpatient. --Seroquel 200mg at HS - change to 50mg HS PRN and will monitor. Concern for fall risk. --Patient previously reported failing trials of Duloxetine and Sertraline. --Takes Sudafed - discussed with patient to avoid --Recommend outpatient Psychiatry follow up. Cognitive deficits --patient knowledgeable of her medical history and medications --+ history of cognitive decline at home. + history of decline in ADL's and IADL's Debility, COPD, medications contributing --TSH pending, B12 WNL --Head imaging - CT head 04/28/24: no acute process. CT head 09/20/23: Unchanged small area of encephalomalacia in the lateral aspect of the right occipital lobe. --History concerning for baseline cognitive deficits. --Recommend outpatient follow up at [facility] for more in depth cognitive evaluation when in usual state of health. Chronic pain --Start Tylenol 650mg BID --Takes Flexeril 5mg - ordered for BID dosing at home. Recommend avoiding/decreasing use due to fall/confusion risk. --Takes Oxycodone-Acetaminophen 5/325mg - ordered for 4 times a day dosing at home. While hospitalized, schedule Tylenol and agree with Oxycodone 5mg every 6 hours as needed. At risk for delirium --Risk factors: pain, advanced age, sensory impairments, acute illness, high risk medications, and baseline cognitive deficits --Encourage PO intake, time up in chair, family visits, supervised ambulation, and sleep hygiene --If agitated, assess for and consider treating for pain --QTc= 439 ms --Takes Seroquel 200mg at HS at home. Resume at lower dose 50mg HS PRN and monitor. --Continue scheduled melatonin at HS --Monitor for constipation/urinary retention - last BM 07/30 --Possible medication contributions: Steroids I spent total time of 90 minutes face to face with the patient and/or family discussing the diagnosis and importance of compliance with the treatment plan as well as documenting on the day of the visit. In addition, that total time includes the following: -Reviewing previous notes, -Reviewing labs, -Obtaining and/or reviewing separately obtained history, -Ordering prescription medications, tests and procedures, -Communicating results to the patient/family/caregiver, -Counseling/educating the patient/family/caregiver, -Documenting clinical information in the patients electronic record, and -Performing a medically appropriate exam and/or evaluation Subjective: HPI 68 y.o. year-old female with PMH of COPD, cervical cancer, DDD, DJD, Lung nodules, Osteoporosis, Depression, Compression fracture, Vitamin D deficiency, anxiety, presented to [facility] on 07/30/24 with complaints of weight loss and shortness of breath. Admitted with Failure to Thrive, severe protein-calorie malnutrition, close supracondylar fracture of left humerus, COPD. Ortho evaluated and diagnosed the fracture as subacute from Fe when she had a fall. Long arm cast will be placed and she will be nonweightbearing. Started on steroids for COPD. Known to inpatient geriatrics September 2023. Followed for polypharmacy, debility, chronic pain, cognitive decline. Daughter Karishma reported patient having memory issues for a year with progression. [place] she was managing her medications ok. Daughter felt she needed more help in the home. Lives with daughter and granddaughter. Psychiatry evaluated patient and medication adjusted. Nursing Delirium Screen (Nu-Desc): Nursing Delirium Symptom Checklist Total Score: 0 Conversation with caregiver: Karishma daughter -Secluded to herself. -Likes sweets and snacks. Does not eat well -Has a swallowing issue, chokes. -She does not want help from family -Memory: loses track of time. Misses medications at times. May forget what time it is. -They are trying to get her into [place] and working on Medicaid waiver. Advance Care Planning Code Status: Full Code Allergies[1] Current Medications[2] Medical History[3] Surgical History[4] Social History Tobacco Use Smoking status: Former Current packs/day: 0.00 Average packs/day: 1.5 packs/day for 39.5 years (59.3 ttl pk-yrs) Types: Cigarettes Start date: 1972 Quit date: 09/20/2011 Years since quittin.8 Passive exposure: Past Smokeless tobacco: Never Tobacco comments: Quit smoking: pt states she quit 4-5 years ago Substance Use Topics Alcohol use: Not Currently Comment: Approx once a year Social History Social History Narrative Not on file Family History Family History[5] Family Status Relation Name Status Neg Hx (Not Specified) Mother Sister Alive Father Brother Alive No partnership data on file Family history reviewed as above Review of Systems Constitutional: Negative for fatigue and fever. HENT: Negative for congestion. Respiratory: Positive for cough and shortness of breath. Cardiovascular: Negative for chest pain and leg swelling. Gastrointestinal: Negative for abdominal pain, constipation, diarrhea and nausea. Genitourinary: Negative for difficulty urinating and dysuria. Musculoskeletal: Positive for arthralgias and gait problem. Neurological: Positive for dizziness and weakness. Negative for tremors. Psychiatric/Behavioral: Positive for sleep disturbance. Negative for confusion and dysphoric mood. The patient is nervous/anxious (at times). Functional Status Prior to Admission: (I: Independent, A: Assisted, D: Dependent) ADLs I A D Notes Bathing [] [x] [] Dressing [x] [] [] Toileting [] [x] [] Shortness of breath. Transfers [x] [] [] Feeding [x] [] [] Ambulation [x] [] [] Assistive devices: straight cane IADLs I A D Telephone [x] [] [] Transportation [] [] [x] Shopping [] [] [x] Meal prep [] [x] [] Housework [] [] [x] Medications [x] [] [] Finances [] [] [x] Objective: BP 115/72 (BP Location: Right arm, Patient Position: Sitting) Pulse 87 Temp 36.4 C (97.6 F) (Temporal) Resp (!) 26 Ht 5' 4" (1.626 m) Wt 89 lb (40.4 kg) SpO2 93% BMI 15.28 kg/m No intake or output data in the 24 hours ending 07/31/24 0802 Wt Readings from Last 3 Encounters: 07/30/24 89 lb (40.4 kg) 04/27/24 108 lb (49 kg) 09/20/23 115 lb (52.2 kg) Physical Exam Vitals reviewed. Constitutional: General: She is not in acute distress. Appearance: She is ill-appearing (chronic). Cardiovascular: Rate and Rhythm: Normal rate and regular rhythm. Pulmonary: Effort: Pulmonary effort is normal. No respiratory distress. Breath sounds: Normal breath sounds. Abdominal: General: Bowel sounds are normal. There is no distension. Palpations: Abdomen is soft. Tenderness: There is no abdominal tenderness. Musculoskeletal: Right lower leg: No edema. Left lower leg: No edema. Neurological: Mental Status: She is alert. Comments: Slight shaking in hands No rigidity Psychiatric: Attention and Perception: Attention normal. Mood and Affect: Mood normal. Thought Content: Thought content is not paranoid or delusional. Labs and Imaging: Recent Results (from the past 24 hours) ECG 12 lead Collection Time: 07/30/24 4:46 PM Result Value Ref Range Heart Rate 95 bpm QRSD Interval 99 ms QT Interval 350 ms QTC Interval 439 ms P [place] 53 degrees QRS [place] -35 degrees T Wave [place] 43 degrees MI Interval 137 ms CBC auto differential Collection Time: 07/30/24 5:29 PM Result Value Ref Range Auto WBC 8.9 3.6 - 10.7 10*3/uL RBC 3.58 (L) 3.80 - 5.20 10*6/uL Hemoglobin 11.2 (L) 11.7 - 16.0 g/dL Hematocrit 37.0 35.0 - 47.0 % MCV 103.4 (H) 77.0 - 99.0 fL MCH 31.3 26.0 - 34.0 pg MCHC 30.3 (L) 30.5 - 36.0 % RDW 13.4 11.5 - 15.0 % Platelets 225 140 - 440 10*3/uL MPV 9.5 9.0 - 12.7 fL nRBC 0.0 0.0 - 2.0 /100 WBCs Neutrophils Relative 80.4 38.0 - 82.0 % Lymphocytes Relative 10.7 (L) 15.0 - 45.0 % Monocytes Relative 5.5 5.0 - 13.0 % Eosinophils Relative 2.7 0.0 - 6.0 % Basophils Relative 0.4 0.0 - 2.0 % Immature Grans % 0.3 0.0 - 2.0 % Neutrophils Absolute 7.2 1.8 - 7.5 10*3/uL Lymphocytes Absolute 1.0 1.0 - 4.3 10*3/uL Monocytes Absolute 0.5 0.0 - 0.9 10*3/uL Eosinophils Absolute 0.2 0.0 - 0.5 10*3/uL Basophils Absolute 0.0 0.0 - 0.2 10*3/uL Immature Grans Absolute 0.0 <0.1 10*3/uL Basic metabolic panel Collection Time: 07/30/24 5:29 PM Result Value Ref Range SODIUM 144 136 - 145 mmol/L POTASSIUM 5.0 3.5 - 5.1 mmol/L CHLORIDE 103 98 - 107 mmol/L CARBON DIOXIDE 37 (H) 23 - 31 mmol/L UREA NITROGEN 16 9 - 23 mg/dL CREATININE 0.63 0.57 - 1.11 mg/dL GLUCOSE 80 (L) 82 - 115 mg/dL CALCIUM 8.8 8.8 - 10.0 mg/dL ANION GAP 4 3 - 13 mmol/L eGFR >90.0 >60.0 mL/min/1.73m*2 Hepatic function panel Collection Time: 07/30/24 5:29 PM Result Value Ref Range BILIRUBIN, TOTAL 0.2 <1.2 mg/dL BILIRUBIN, DIRECT 0.1 <0.5 mg/dL ALKALINE PHOSPHATASE 97 40 - 150 U/L AST (SGOT) 21 <34 U/L ALT 10 <30 U/L ALBUMIN 3.0 (L) 3.4 - 4.8 g/dL TOTAL PROTEIN 6.5 6.4 - 8.3 g/dL Lipase Collection Time: 07/30/24 5:29 PM Result Value Ref Range LIPASE 18 <55 U/L Magnesium Collection Time: 07/30/24 5:29 PM Result Value Ref Range MAGNESIUM 1.9 1.6 - 2.6 mg/dL Vitamin B12 Collection Time: 07/30/24 5:29 PM Result Value Ref Range VITAMIN B12 639 213 - 816 pg/mL Folate Collection Time: 07/30/24 5:29 PM Result Value Ref Range FOLATE RESULT 5.2 (L) 7.0 - 31.4 ng/mL Procalcitonin Test Collection Time: 07/30/24 5:29 PM Result Value Ref Range PROCALCITONIN 0.03 <0.07 ng/mL C-reactive protein Collection Time: 07/30/24 5:29 PM Result Value Ref Range C REACTIVE PROTEIN 1.4 <5.0 mg/L Urinalysis complete with reflex to Culture Collection Time: 07/30/24 9:05 PM Result Value Ref Range Color, Urine Yellow Lt. Yellow Clarity, Urine Turbid (A) Clear pH, Urine 7.5 5.0 - 8.0 pH Leukocytes, Urine 25 (A) Negative Sandra/uL Nitrite, Urine Negative Negative Protein, Urine 10 (A) Negative mg/dL Glucose, Urine Normal Normal (<70) mg/dL Bilirubin, Urine Negative Negative mg/dL Ketones, Urine Negative Negative mg/dL Urobilinogen, Urine Normal Normal (0-1) mg/dL Blood, Urine Negative Negative mg/dL RBC, Urine 0-2 0 - 2 /HPF WBC, Urine 3-5 0 - 5 /HPF Squamous Epithelial, Urine 0-2 3 - 5 /HPF Bacteria, Urine Negative Negative /HPF Mucus, Urine Few Negative /LPF Amorphous Crystals, Urine Many (A) Negative /HPF Hyaline Casts, Urine 0-2 (A) Negative /LPF SPECIFIC GRAVITY OF URINE (NUMERIC) 1.023 1.005 - 1.030 Lab Results Component Value Date TSH 1.017 09/21/2023 No components found for: "B12" No results found for: "VITD25" Reviewed: active problem list, medication list, allergies, family history, social history, notes from last encounter, notes from last several encounters, lab results, imaging Follow-up: will follow with you Saad Telles APRN - [place] 07/31/24 8:02 AM [1] Allergies Allergen Reactions Pollen Extract Unknown [2] Current Facility-Administered Medications: acetaminophen (Tylenol) tablet 650 mg, 650 mg, Oral, q6h PRN OR acetaminophen (Tylenol) suppository 650 mg, 650 mg, Rectal, q6h PRN, Lauren Serna MD albuterol (2.5 MG/3ML) 0.083% nebulizer solution 2.5 mg, 2.5 mg, Nebulization, q4h PRN, Lauren Serna MD aspirin EC tablet 81 mg, 81 mg, Oral, Daily, Lauren Serna MD buPROPion XL (Wellbutrin XL) 24 hr tablet 150 mg, 150 mg, Oral, Daily, Lauren Serna MD busPIRone (Buspar) tablet 15 mg, 15 mg, Oral, BID, Lauren Serna MD, 15 mg at 07/31/24 003 calcitonin (Miacalcin) injection 50 Units, 50 Units, IntraMUSCular, Daily, Lauren Serna MD cyclobenzaprine (Flexeril) tablet 5 mg, 5 mg, Oral, TID PRN, Lauren Serna MD enoxaparin (Lovenox) syringe 30 mg, 30 mg, SubCUTAneous, Daily, Lauren Serna MD fluticasone (Flonase) nasal spray 2 spray, 2 spray, Each Nostril, Daily, Lauren Serna MD melatonin tablet 3 mg, 3 mg, Oral, Nightly, Lauren Serna MD, 3 mg at 07/31/2429 methylPREDNISolone sod suc (PF) (SOLU-Medrol) 40 MG injection 20 mg, 20 mg, IntraVENous, q12h, Lauren Serna MD, 20 mg at 07/31/24 06 mirtazapine (Remeron) tablet 15 mg, 15 mg, Oral, Nightly, Lauren Serna MD, 15 mg at 07/31/24 003 mometasone-formoterol (Dulera 200) 200-5 MCG/ACT inhaler 2 puff, 2 puff, Inhalation, BID, Lauren Serna MD, 2 puff at 07/31/24 003 montelukast (Singulair) tablet 10 mg, 10 mg, Oral, Nightly, Lauren Serna MD, 10 mg at 07/31/24 0031 naloxone (Narcan) injection 0.4 mg, 0.4 mg, IntraVENous, q5 min PRN, Lauren Serna MD ondansetron ODT (Zofran-ODT) disintegrating tablet 4 mg, 4 mg, Oral, q8h PRN OR ondansetron (Zofran) injection 4 mg, 4 mg, IntraVENous, q6h PRN, Lauren Serna MD oxyCODONE (Roxicodone) immediate release tablet 5 mg, 5 mg, Oral, q6h PRN, Lauren Serna MD, 5 mg at 07/31/24 0052 PARoxetine (Paxil) tablet 20 mg, 20 mg, Oral, q AM, Lauren Serna MD polyethylene glycol (PEG) 3350 (Miralax) packet 17 g, 17 g, Oral, Daily PRN, Lauren Serna MD tiotropium (Spiriva Respimat) 2.5 MCG/ACT inhaler 2 puff, 2 puff, Inhalation, Daily, Lauren Serna MD [3] Past Medical History: Diagnosis Date Abnormal stress test Acute exacerbation of chronic obstructive pulmonary disease (HCC) 04/12/2018 Allergic rhinitis Arthritis Asthma Bronchitis Cancer (CMS/HCC) (HCC) skin Cervical cancer ([facility]) Chest pain COPD (chronic obstructive pulmonary disease) ([facility]) USE OXYGEN 3 L AT NIGHT DDD (degenerative disc disease), cervical Defect, retina, with detachment right DJD (degenerative joint disease), lumbar Emphysema lung (HCC) Former smoker Hematuria SCHEDULED FOR THE PROCEDURE /SURGERY ON 02/11/2017 Hypokalemia Lung nodules Near syncope 09/19/2023 Osteoporosis Palpitations Pneumonia Recurrent major depression ([facility]) Sciatica Thoracic compression fracture ([facility]) Vitamin D deficiency [4] Past Surgical History: Procedure Laterality Date CYSTOSCOPY 01/12/2017 OFFICE PROCEDURE CYSTOSCOPY 02/11/2017 C&P bladder biopsy EYE SURGERY detached retina 1994 HYSTERECTOMY 11/06/2019 ABDOMINAL RADICAL HYSTERECTOMY WITH BSO AND PELVIC LYMPH; DR. ZIYAD FISH OTHER SURGICAL HISTORY Left 12/19/2019 Med Port POWER Regular Size OTHER SURGICAL HISTORY Left 11/07/2022 Percutaneous skeltal fixation femoral fracture TUBAL LIGATION 1992 [5] Family History Problem Relation Name Age of Onset Colon cancer Neg Hx Ovarian cancer Neg Hx Cancer Mother breast- to liver Cancer Sister breast Cancer Father lung to brain No Known Problems Brother Uterine cancer Neg Hx Associated Order(s): Inpatient consult to orthopaedic surgery--left elbow fracture Inpatient consult to orthopaedic surgery--left elbow fracture Consult performed by: Betsey Gresham MD Consult ordered by: Lauren Serna MD Consult Note Date:07/31/2024 Patient Name:Gonzalo Deluca Date of :1955 Age:68 y.o. Reason for Consult: Left elbow fracture Chief Complaint Chief Complaint Patient presents with Weight Loss Pt in with family for c/o failure to thrive, weight loss, and shortness of breath. Pt arrives on 3L oxygen, has history of COPD and states has been short of breath with exertion. Pt states she has been losing weight and now weighs 89lbs. States was sent by PCP Shortness of Breath Progressive debility and shortness of breath History Obtained From Patient and chart History of Present Illness This patient was admitted for progressive weight loss and shortness of breath. Of orthopedic concern, she had a fall in early April. X-rays April 28 showed no fracture or acuity. She describes swelling and bruising at that time. She adamantly denies subsequent fall. She states she may have gotten too close to the wall and bumped the elbow." Since she was being admitted, she stated that she thought she "might as well have the elbow looked at as well." Current x-rays show a supracondylar fracture. Past Medical History Medical History[1] Past Surgical History Surgical History[2] Medications Prior to Admission medications Medication Sig Start Date End Date Taking? Authorizing Provider albuterol 108 (90 Base) MCG/ACT inhaler Inhale 2 puffs every 4 hours as needed. 08/06/21 Yes Historical Provider, aspirin 81 MG EC tablet Take 81 mg by mouth. 11/25/19 Yes Historical Provider, calcium carbonate-cholecalciferol (Oyster Shell) 250-3.125 MG-MCG tablet Take 1 tablet by mouth. Yes Historical Provider, Diclofenac Sodium (Voltaren) 1 % gel Apply 4 g topically 2 times daily. 02/18/23 Yes Earlene Echavarria MD Fluticasone Furoate-Vilanterol (Breo Ellipta) 200-25 MCG/ACT aerosol powder Inhale 1 puff daily. Yes Historical Provider, magnesium oxide (Mag-Ox) 400 mg tablet 400 mg daily. Yes Historical Provider, montelukast (Singulair) 10 MG tablet Take 10 mg by mouth Nightly. Yes Historical Provider, QUEtiapine (SEROquel) 200 MG tablet Take 200 mg by mouth Nightly. Yes Historical Provider, tiotropium (Spiriva Respimat) 2.5 MCG/ACT inhaler Inhale 2 puffs in the morning. 11/20/21 Yes Historical Provider, Zinc 50 MG capsule Take 50 mg by mouth. Yes Historical Provider, alendronate (Fosamax) 70 MG tablet Take 70 mg by mouth once a week. 12/14/21 12/14/22 Historical Provider, buPROPion XL (Wellbutrin XL) 150 MG 24 hr tablet Take 150 mg by mouth in the morning. 08/06/21 08/06/22 Historical Provider, busPIRone (Buspar) 15 MG tablet Take 1 tablet (15 mg) by mouth 2 times daily. 09/22/23 10/22/23 Roland Ortiz DO calcitonin (Miacalcin) 200 UNIT/ML injection Inject 0.25 mL (50 Units) into the shoulder, thigh, or buttocks daily. Patient not taking: Reported on 07/31/2024 02/19/23 Earlene Echavarria MD fluticasone (Flonase) 50 MCG/ACT nasal spray 2 sprays in the morning. 08/06/21 08/06/22 Historical Provider, melatonin 3 MG tablet Take 1 tablet (3 mg) by mouth Nightly. Patient not taking: Reported on 07/31/2024 09/22/23 Roland Ortiz DO methocarbamol (Robaxin) 500 MG tablet Take 2 tablets (1,000 mg) by mouth every 8 hours as needed for muscle spasms for up to 10 days. 10/16/23 10/26/23 Janneth Godinez PA-C mirtazapine (Remeron) 15 MG tablet Take 1 tablet (15 mg) by mouth Nightly. 09/22/23 10/22/23 Roland Ortiz, DO nicotine (Nicoderm, Step 1) 21 MG/24HR patch Place 1 patch on the skin daily. Do not start before November 09, 2022. 11/09/22 12/09/22 Raul Whipple, DO PARoxetine (Paxil) 20 MG tablet Take 1 tablet (20 mg) by mouth every morning. 09/22/23 10/22/23 Roland Ortiz DO atorvastatin (Lipitor) 40 MG tablet Take 1 tablet by mouth Nightly. 11/24/19 07/30/24 Historical Provider, gabapentin (Neurontin) 600 MG tablet Take 1 tablet by mouth daily. 02/08/20 07/30/24 Historical Provider, lidocaine (Lidoderm) 5 % patch Apply 1 patch topically daily. Remove & discard patch within 12 hours or as directed by . 10/16/23 07/30/24 Janneth Godinez PA-C Allergies Pollen extract Social History reports that she quit smoking about 12 years ago. Her smoking use included cigarettes. She started smoking about 52 years ago. She has a 59.3 pack-year smoking history. She has been exposed to tobacco smoke. She has never used smokeless tobacco. She reports that she does not currently use alcohol. She reports that she does not use drugs. Family History Family History[3] Review of Systems See H&P Physical Exam BP 115/72 (BP Location: Right arm, Patient Position: Sitting) Pulse 87 Temp 36.4 C (97.6 F) (Temporal) Resp (!) 26 Ht 1.626 m (5' 4") Wt 40.4 kg (89 lb) SpO2 93% BMI 15.28 kg/m General: Well-developed, very thin and malnourished. Appears older than her stated age of 68. She is in no acute distress. Neurologic: Alert and oriented x 3. Mood and affect normal. Sensory exams intact to light touch bilateral upper extremities. Vascular: No cyanosis, clubbing or edema. Musculoskeletal: Full function and range of motion to hands wrist and fingers. Left upper extremity is immobilized in long-arm splint. She is actively using this arm to eat breakfast. Labs CBC: Recent Labs 07/30/24 1729 WBC 8.9 RBC 3.58* HGB 11.2* HCT 37.0 MCV 103.4* RDW 13.4 PLT 225 CHEMISTRIES: Recent Labs 07/30/24 1729 NA 144 K 5.0 CL 103 CO2 37* BUN 16 CREATININE 0.63 GLUCOSE 80* MG 1.9 PT/INR:No results for input(s): "PROTIME", "INR" in the last 72 hours. APTT:No results for input(s): "APTT" in the last 72 hours. LIVER PROFILE: Recent Labs 07/30/24 1729 AST 21 ALT 10 BILIDIR 0.1 BILITOT 0.2 ALKPHOS 97 Imaging/Diagnostics Reviewed x-rays include: Left elbow April 28, 2024 shows no fractures or deformities. No effusion and no soft tissue signs or swelling. Current left elbow x-ray on admission shows a somewhat impacted supracondylar humerus fracture which is far distal and slightly displaced. Although it was read as acute, there are some changes that suggest this could be subacute. Assessment 1. Left supracondylar humerus fracture, extra-articular, presumed subacute from April 28, 2024 2. Osteoporosis 3. Severe malnutrition, BMI 15.28 4. Osteoporosis confirmed by last DEXA scan December 10, 2016 Plan 1. History suggest that this is a fracture that is now over 3 months old. If so, it is highly likely to go on to a nonunion. Her medical condition makes her at high risk for pulmonary complication for surgical reconstruction. Furthermore, her severe osteoporosis and the extremely small distal fragment would likely make open reduction and internal fixation a failure. If this becomes a chronic nonunion and is not symptomatically acceptable. If she ever is a surgical candidate, it would likely be an elbow replacement. I will plan on putting a long-arm arm cast on her in the next couple days as the schedule permits. She needs to be nonweightbearing on this upper extremity. Thank you for the consult we will follow with you. Electronically signed by Betsey Gresham MD [1] Past Medical History: Diagnosis Date Abnormal stress test Acute exacerbation of chronic obstructive pulmonary disease (HCC) 04/12/2018 Allergic rhinitis Arthritis Asthma Bronchitis Cancer (CMS/HCC) (HCC) skin Cervical cancer (HCC) Chest pain COPD (chronic obstructive pulmonary disease) (HCC) USE OXYGEN 3 L AT NIGHT DDD (degenerative disc disease), cervical Defect, retina, with detachment right DJD (degenerative joint disease), lumbar Emphysema lung (HCC) Former smoker Hematuria SCHEDULED FOR THE PROCEDURE /SURGERY ON 02/11/2017 Hypokalemia Lung nodules Near syncope 09/19/2023 Osteoporosis Palpitations Pneumonia Recurrent major depression (HCC) Sciatica Thoracic compression fracture (HCC) Vitamin D deficiency [2] Past Surgical History: Procedure Laterality Date CYSTOSCOPY 01/12/2017 OFFICE PROCEDURE CYSTOSCOPY 02/11/2017 C&P bladder biopsy EYE SURGERY detached retina 1994 HYSTERECTOMY 11/06/2019 ABDOMINAL RADICAL HYSTERECTOMY WITH BSO AND PELVIC LYMPH; DR. ZIYAD MENENDEZ [facility] OTHER SURGICAL HISTORY Left 12/19/2019 Med Port POWER Regular Size OTHER SURGICAL HISTORY Left 11/07/2022 Percutaneous skeltal fixation femoral fracture TUBAL LIGATION 1992 [3] Family History Problem Relation Name Age of Onset Colon cancer Neg Hx Ovarian cancer Neg Hx Cancer Mother breast- to liver Cancer Sister breast Cancer Father lung to brain No Known Problems Brother Uterine cancer Neg Hx documented in this encounter [facility] 08-01-2024 Plan of care note Problem: Knowledge Deficit Goal: Patient/family/caregiver demonstrates understanding of disease process, treatment plan, medications, and discharge instructions Outcome: Progressing Problem: Potential for Compromised Skin Integrity Goal: Skin Integrity is Maintained or Improved Outcome: Progressing Goal: Nutritional status is improving Outcome: Progressing Problem: Urinary Incontinence Goal: Perineal skin integrity is maintained or improved Outcome: Progressing Problem: Potential for Falls Goal: I will remain free of falls Outcome: Progressing Problem: Discharge Barriers Goal: My discharge needs are met Outcome: Progressing [facility] 07-31-2024 Note Formatting of this n ote might be different from the original. Desk Maker following case for Discharge Needs. [facility] 07-31-2024 Note Formatting of this n ote might be different from the original. Desk Maker following case for Discharge Needs. [facility] 07-31-2024 Consult note Associated Order (s): IP CONSULT TO DIETITIAN Images from the original note were not included. Nutrition Assessment Type and Reason for Visit: Initial, Consult (poor po - needs high calorie supplement) Nutrition Recommendations/Plan: Suggest to continue regular diet to promote intake. Upper dentures not here- denies issues -denies assist status- METAL SMELTER ordered per MNT protocol , will initiate vanilla Ensure Plus hi pro( 350 alexus, 20 gm pro/serving) and brown Ensure plus ( 350 alexus, 13 gm pro/serving) Please document PO intakes-diet and ONS- consistently in the flowsheet to better assess intake adequacy. Suggest folate supplement- check vit d status . Suggest daily mvi. Continue remeron. Monitor labs, status, intake to reassess. Follow up weekly Malnutrition Assessment: Malnutrition Status: Severe malnutrition (copd) Context: Chronic Illness Findings of the 6 clinical characteristics of malnutrition: Energy Intake: 75% or less estimated energy requirements for 1 month or longer Weight Loss: Greater than 20% over 1 year (29% in 1 year) Body Fat Loss: Severe body fat loss Orbital, Buccal region Muscle Mass Loss: Severe muscle mass loss Temples (temporalis), Scapula (trapezius), Hand (interosseous) Fluid Accumulation: No significant fluid accumulation Hotel Controller Strength: na [facility] 07-31-2024 Consult note Associated Order (s): IP CONSULT TO PALLIATIVE CARE Images from the original note were not included. Palliative Care Initial Consult Chief Complaint: Gonzalo Deluca is a 68 y.o. female with chief complaint of fall, unintentional weight loss. Palliative Care is actively following. Assessment/Plan Goals of care Gonzalo Deluca retains capacity for medical decision-making -legal surrogate decision maker is unknown, daughter listed in emergency contacts-->Karishma Deluca ( ) -see subjective for details of conversation -goals of care include: 1) improve SOB Fall L Elbow fracture Debility, FTT -Worsening functional status at home. -She lives with her daughter, mainly stays on 2nd floor in her room where she has microwave and fridge. -She is really not able to go up and down steps well. -PT/OT. -Pulmonary rehab??? -Monitor. Unintentional weight loss Pulmonary cachexia -Patient is severely malnourished appearing. -Noted that reports that she is not hungry and when she does try to eat she is full only after a few bites. -Endorses feeling very short of breath when trying to eat. -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 -Child Development Teacher would be helpful. -BMI 15.28 -Albumin-->3.0 -Monitor. Chronic respiratory failure Dyspnea Severe emphysema -3L baseline. Worsening SOB as of late. -Chronically on percocet, but does not endorse this helping with shortness of breath. -Rotating to MSIR 7.5 mg Q4 hour PRN pain/SOB. -PFT last done in 2015-->FEV1/FVC reduced, FEV1 1.45, 50% predicted. No bronchodilator response. Severe obstructive ventilatory defect with evidence of gas trapping, no evidence of hyperinflation or bronchodilator response. -Appears that she has not seen pulmonology in quite sometime. -Would likely be worth having pulmonology see her this admission to establish and then f/u outpatient. -Discussion around code status today. Discussed with her the likelihood that she would not come off of a ventilator if put on one, she is still OK with short term intubation at this time. -CXR reviewed 07-30-->No acute cardiopulmonary abnormality identified. Chronic appearing lung changes. -CT CAP 07-31-->New wedge-shaped subpleural airspace opacity in the left lower lobe is most likely either focal pneumonia or a lung infarct. Neoplasm is unlikely, but follow-up to resolution is recommended. No acute findings in the abdomen or pelvis. Multiple chronic osteoporotic compression fractures in the thoracic and lumbar spine. Severe pulmonary emphysema. -monitor. Continue to follow. Palliative Care Encounter -Code Status: DNR-CCA - will continue to follow for ongoing monitoring of progression of Dyspnea as well as for appropriateness for hospice care due to COPD and Respiratory Failure PC Time Stamp: Total of 90 minutes spent on this encounter including Chart review, Patient visit and exam, Documentation in EHR, Care coordination, Communicating with primary attending or other consultants, Electronic order planner of medications, tests or procedures, Obtaining and/or reviewing separately obtained history, and Counseling and educating patient/family/caregiver. Discharge planning: Not ready for discharge due to uncontrolled symptoms Patient meets criteria for general inpatient hospice care: No Palliative Care IDT members involved: None Discussed the plan of care with the other interdisciplinary team (IDT) members of the Palliative Care and Hospice teams and Patient. Subjective: Subjective/Events Gonzalo Deluca is a 68 y.o. female with PMH of severe COPD, emphysema, tobacco abuse, OP, MDD, DDD, chronic respiratory failure on 3L. Presents for worsening debility, FTT , Falls, unintentional weight loss and worsening dyspnea. Noted L elbow pain and imaging revealing acute fracture on imaging. Orthopedics consulted. She continues to have worsening functional status at home. Noted that she has very poor appetite and only eats one time a day. O2 concentrator is not working and she has no supplies at home? She was sent to ER from her PCP office for concern of worsening failure to thrive. Palliative care consulted for goals of care and non-pain symptoms. She is seen today, in bed. She is cachetic appearing. NC in place. Some conversational dyspnea. Shortness of breath reported with minimal to no relief from oxycodone. Has been on percocet chronically for years. Rotated to MSIR today for pain/SOB. Would refer to home/OP palliative care for ongoing goals of care discussions. NAEON. Continue to follow. All other systems reviewed and negative. Return tomorrow. Pain Assessment No pain Advance Care Planning Advanced Care Planning Conversation Pertinent Diagnosis/es: severe COPD, chronic respiratory failure The patient and/or surrogate consented to a voluntary Advance Care Planning conversation. Gonzalo Deluca retains capacity for medical decision-making Individuals present included: Patient. Summary of the conversation: -Introduced the palliative care service to the patient and/or family. Discussed that we see patients with serious illnesses. Our role is to assist with pain and symptom management and to support the patient and family to promote quality of life. We at times also assist in discussions regarding goals of care and clinical decisions. -Discussed symptoms and goals of care extensively. -Discussed that likely her nutritional status is 2/2 pulmonary cachexia as mentioned above. Encouraged continued PO intake as she is able. -Briefly discussed that this will continue to progress and started discussion around hospice LOC, patient states she is not ready for this at this time. -Will refer to palliative care outpatient. -Reviewed with patient and family that, given multiple medical co-morbidities in the setting of advanced age, if patient were to have cardiac arrest the chances of surviving CPR would be low. Reviewed that if survived cardiac arrest, patient would likely not return to prior level of function. -Noted that patient continues to state that she would be ok with short term intubation, if needed but would absolutely not want CPR under any circumstance. -Questions answered, concerns addressed, emotional support provided. Outcome of the conversation: Decision to change code status to DNRCCA and allow intubation, if necessary Advance Directives were explained including HCPOA, Living Will and/or DNR. This is the first significant conversation I have had with this patient about advanced care planning. I spent 40 minutes providing separately identifiable ACP services with the patient and/or surrogate decision maker in a voluntary conversation discussing the patient's goals, values, and preferences as detailed in the note above. Imelda Bernard, LAMINATING PRESS OPERATOR - AN/SSN 2 4 OPERATOR Palliative Care Assessments: Goals of care: Continue Current Management, Live Longer, extend life as much as possible, Improve or Maintain Function/Quality of Life, Preserve [place]/Autonomy/Control, and Remain at Home Advanced Directives: DNR Functional Assessment: PPS 70% amb reduced; can't do normal work/some disease; full self care; normal or reduced intake; full LOC Prognosis: depends upon goals of care Spiritual Assessment: No spiritual distress identified Bereavement and Grief: To Be Determined PDMP/OARRS Reviewed: Yes-reviewed Social history: Marital status: Children: not addressed Living status: with daughter Work history: retired [place] status: No Judaism sharla: None ROS: See palliative care ROS/ESAS below; All other systems were reviewed and are negative. [place] Symptom Assessment Score [place] Score Pain Score (if non-verbal, add .FLACC below) 0 Tiredness Score 0 Nausea Score 0 Depression Score 0 Anxiety Score 0 Drowsiness Score 0 Anorexia Score (0= eating well, 10= not eating) 7 Wellbeing Score (10= worst sense of well-being) 6 Constipation 0 Dyspnea Score (0= no shortness of breath) 5 Family Meeting: Participants: patient Family meeting was held to discuss:Goals of Care and Symptom Management Medical History[1] Surgical History[2] Family History[3] Unable to obtain family history due to N/A- family history available Allergies[4] Objective: BP 106/70 (BP Location: Right arm, Patient Position: Lying) Pulse 85 Temp (!) 35.8 C (96.5 F) (Temporal) Resp 14 Ht 5' 4" (1.626 m) Wt 89 lb (40.4 kg) SpO2 94% BMI 15.28 kg/m Physical Exam Vitals and nursing note reviewed. Constitutional: General: She is awake. She is not in acute distress. Appearance: She is cachectic. She is ill-appearing. Interventions: Nasal cannula in place. HENT: Head: Normocephalic. Nose: Nose normal. Mouth/Throat: Mouth: Mucous membranes are moist. Pharynx: Oropharynx is clear. Eyes: General: Right eye: No discharge. Left eye: No discharge. Extraocular Movements: Extraocular movements intact. Pupils: Pupils are equal, round, and reactive to light. Cardiovascular: Rate and Rhythm: Normal rate and regular rhythm. Pulses: Normal pulses. Heart sounds: Normal heart sounds. No murmur heard. Pulmonary: Effort: Pulmonary effort is normal. No respiratory distress. Breath sounds: Normal breath sounds. Abdominal: General: Abdomen is flat. There is no distension. Palpations: Abdomen is soft. Tenderness: There is no abdominal tenderness. Musculoskeletal: Cervical back: Normal range of motion and neck supple. Right lower leg: No edema. Left lower leg: No edema. Skin: General: Skin is warm and dry. Capillary Refill: Capillary refill takes less than 2 seconds. Coloration: Skin is pale. Neurological: Mental Status: She is alert and oriented to person, place, and time. Mental status is at baseline. Psychiatric: Mood and Affect: Mood normal. Behavior: Behavior normal. Behavior is cooperative. Thought Content: Thought content normal. Judgment: Judgment normal. Medication information: 24-hour PRN meds received: oxycodone 5 mg x3 Results/Verification of Data Review Objective data reviewed (must include dates reviewed for labs, imaging reports and other specialty notes): BMP, CBC 08/01/24 CXR 08/01/24 Data in Support of Terminal Illness: Is patient hospice appropriate? Eligible, but not consistent with GOC at this time Transition Note Initiated: yes DB Aggarwal CNP [1] Past Medical History: Diagnosis Date Abnormal stress test Acute exacerbation of chronic obstructive pulmonary disease (HCC) 04/12/2018 Allergic rhinitis Arthritis Asthma Bronchitis Cancer (CMS/HCC) (HCC) skin Cervical cancer (HCC) Chest pain COPD (chronic obstructive pulmonary disease) (HCC) USE OXYGEN 3 L AT NIGHT DDD (degenerative disc disease), cervical Defect, retina, with detachment right DJD (degenerative joint disease), lumbar Emphysema lung (HCC) Former smoker Hematuria SCHEDULED FOR THE PROCEDURE /SURGERY ON 02/11/2017 Hypokalemia Lung nodules Near syncope 09/19/2023 Osteoporosis Palpitations Pneumonia Recurrent major depression (HCC) Sciatica Thoracic compression fracture (HCC) Vitamin D deficiency [2] Past Surgical History: Procedure Laterality Date CYSTOSCOPY 01/12/2017 OFFICE PROCEDURE CYSTOSCOPY 02/11/2017 C&P bladder biopsy EYE SURGERY detached retina 1994 HYSTERECTOMY 11/06/2019 ABDOMINAL RADICAL HYSTERECTOMY WITH BSO AND PELVIC LYMPH; DR. ZIYAD FISH OTHER SURGICAL HISTORY Left 12/19/2019 Med Port POWER Regular Size OTHER SURGICAL HISTORY Left 11/07/2022 Percutaneous skeltal fixation femoral fracture TUBAL LIGATION 1992 [3] Family History Problem Relation Name Age of Onset Colon cancer Neg Hx Ovarian cancer Neg Hx Cancer Mother breast- to liver Cancer Sister breast Cancer Father lung to brain No Known Problems Brother Uterine cancer Neg Hx [4] Allergies Allergen Reactions Pollen Extract Unknown Cosigned by Ruth العراقي MD at 08/01/2024 5:26 PM EDT [facility] 07-31-2024 Note Formatting of this n ote is different from the original. Images from the original note were not included. [facility] Palliative Care Transitions of Care Note Gonzalo Deluca : 1955 ADMIT DATE: 07/30/2024 DISCHARGE DATE: TBD PRIMARY CARE PHYSICIAN: HERMINIA CASE MD CODE STATUS: DNR-CCA DISCHARGE DIAGNOSES: Principal Problem: Adult failure to thrive HOSPITAL COURSE: Goals of care Gonzalo Deluca retains capacity for medical decision-making -legal surrogate decision maker is unknown, daughter listed in emergency contacts-->Karishma Deluca ( ) -Would encourage completion of HCPOA while admitted. -goals of care include: 1) improve SOB 2) improve pain Fall L Elbow fracture Debility, FTT -Worsening functional status at home. -She lives with her daughter, mainly stays on 2nd floor in her room where she has microwave and fridge. -She is really not able to go up and down steps well. -PT/OT. -s/p casting with ortho. -Orthopedics following, non-op fracture. -Monitor. Unintentional weight loss Pulmonary cachexia -Patient is severely malnourished appearing. -Noted that reports that she is not hungry and when she does try to eat she is full only after a few bites. -Endorses feeling very short of breath when trying to eat. -Child Development Teacher would be helpful. -BMI 15.28 -Albumin-->3.0 -Monitor. Chronic respiratory failure Dyspnea Severe emphysema -3L baseline. Worsening SOB as of late. -Continue MSIR to 15 mg Q4 hour PRN severe pain/shortness of breath. -Patient is not sure how well this is helping her shortness of breath at this time. -Continue to follow on symptoms. Discussed with her that we could rotate back to percocet/oxycodone if this was more effective. -PFT last done in 2016-->FEV1/FVC reduced, FEV1 1.45, 50% predicted. No bronchodilator response. Severe obstructive ventilatory defect with evidence of gas trapping, no evidence of hyperinflation or bronchodilator response. -Noted that we continue to follow for goals of care. -CT CAP 5-13-->reviewed, severe emphysema. -Pulmonology following. -monitor. Continue to follow. Palliative Care Encounter -Code Status: DNR-CCA, OK for intubation. - will continue to follow for ongoing monitoring of progression of Dyspnea as well as for appropriateness for hospice care due to COPD and Respiratory Failure SIGNIFICANT DIAGNOSTIC STUDIES: Labs, imaging CODE STATUS DISCUSSIONS: DNR-CCA SYMPTOM MANAGEMENT MEDICATIONS: MSIR RECOMMENDED NEXT STEPS: Dc when medically stable FOLLOW UP TESTING, PENDING RESULTS OR REFERRALS AT TRANSITIONAL CARE VISIT: No PENDING STUDIES: No DISPOSITION: Skilled Rehab Facility FACILITY/HOME CARE AGENCY NAME: [facility] Follow up with [facility] on office to call patient. If appointment not scheduled, patient should be scheduled within 1-2 weeks. Reason for Outpatient/Home/ECF Palliative Care follow-up: Symptom management: specifically pain/shortness of breath Opiate Prescribing OARRS was reviewed and is supportive of the care plan. The qualifying diagnosis is terminal condition The patient is Palliative care patient The duration of opiate prescription is longer than 7 days because terminal condition This patient requires opioid dosage greater than 30 oral morphine equivalents due to Terminal Condition and symptoms could not be controlled with non-opioid alternatives alone or with lower doses of opiates. Patient being rotated to a new opiate regimen yes. Education was provided regarding 3 options for disposal of left over medication including drug take back programs, flushing appropriate medications down the toilet or household disposal. SIGNED: DB Aggarwal CNP 08/03/2024, 10:20 AM [facility] 07-31-2024 Note Formatting of this n ote is different from the original. Images from the original note were not included. [facility] Palliative Care Transitions of Care Note Gonzalo Deluca : 1955 ADMIT DATE: 07/30/2024 DISCHARGE DATE: TBD PRIMARY CARE PHYSICIAN: HERMINIA CASE MD CODE STATUS: DNR-CCA DISCHARGE DIAGNOSES: Principal Problem: Adult failure to thrive HOSPITAL COURSE: Goals of care Gonzalo Deluca retains capacity for medical decision-making -legal surrogate decision maker is unknown, daughter listed in emergency contacts-->Karishma Starksyahir ( ) -Would encourage completion of HCPOA while admitted. -goals of care include: 1) improve SOB 2) improve pain Fall L Elbow fracture Debility, FTT -Worsening functional status at home. -She lives with her daughter, mainly stays on 2nd floor in her room where she has microwave and fridge. -She is really not able to go up and down steps well. -PT/OT. -s/p casting with ortho. -Orthopedics following, non-op fracture. -Monitor. Unintentional weight loss Pulmonary cachexia -Patient is severely malnourished appearing. -Noted that reports that she is not hungry and when she does try to eat she is full only after a few bites. -Endorses feeling very short of breath when trying to eat. -Child Development Teacher would be helpful. -BMI 15.28 -Albumin-->3.0 -Monitor. Chronic respiratory failure Dyspnea Severe emphysema -3L baseline. Worsening SOB as of late. -Continue MSIR to 15 mg Q4 hour PRN severe pain/shortness of breath. -Patient is not sure how well this is helping her shortness of breath at this time. -Continue to follow on symptoms. Discussed with her that we could rotate back to percocet/oxycodone if this was more effective. -PFT last done in 2015-->FEV1/FVC reduced, FEV1 1.45, 50% predicted. No bronchodilator response. Severe obstructive ventilatory defect with evidence of gas trapping, no evidence of hyperinflation or bronchodilator response. -Noted that we continue to follow for goals of care. -CT CAP 07-31-->reviewed, severe emphysema. -Pulmonology following. -monitor. Continue to follow. Palliative Care Encounter -Code Status: DNR-CCA, OK for intubation. - will continue to follow for ongoing monitoring of progression of Dyspnea as well as for appropriateness for hospice care due to COPD and Respiratory Failure SIGNIFICANT DIAGNOSTIC STUDIES: Labs, imaging CODE STATUS DISCUSSIONS: DNR-CCA SYMPTOM MANAGEMENT MEDICATIONS: MSIR RECOMMENDED NEXT STEPS: Dc when medically stable FOLLOW UP TESTING, PENDING RESULTS OR REFERRALS AT TRANSITIONAL CARE VISIT: No PENDING STUDIES: No DISPOSITION: Skilled Rehab Facility FACILITY/HOME CARE AGENCY NAME: [facility] Follow up with [facility] on office to call patient. If appointment not scheduled, patient should be scheduled within 1-2 weeks. Reason for Outpatient/Home/ECF Palliative Care follow-up: Symptom management: specifically pain/shortness of breath Opiate Prescribing OARRS was reviewed and is supportive of the care plan. The qualifying diagnosis is terminal condition The patient is Palliative care patient The duration of opiate prescription is longer than 7 days because terminal condition This patient requires opioid dosage greater than 30 oral morphine equivalents due to Terminal Condition and symptoms could not be controlled with non-opioid alternatives alone or with lower doses of opiates. Patient being rotated to a new opiate regimen yes. Education was provided regarding 3 options for disposal of left over medication including drug take back programs, flushing appropriate medications down the toilet or household disposal. SIGNED: DB Aggarwal CNP 08/03/2024, 10:20 AM [facility] 07-31-2024 Note Formatting of this n ote might be different from the original. Rounds this am DCP: TBD Need PT/OT to determine to ED with chief complaint of unintentional weight loss, shortness of breath, and also left elbow pain has been dealing with COPD for quite some time but recently has gotten more short of breath and is not finding energy to perform much of activities of daily living. Has had very poor appetite normal eats only once a day. Son is also concerned she is not taking care of her with neuropathy because she did not have the oxygen tanks is back up and her concentrator is not working. She was noted be significantly hypoxic at PCP office for the scheduled appointment 93% on 5L last read [facility] 07-31-2024 Note Formatting of this n ote might be different from the original. Rounds this am DCP: TBD Need PT/OT to determine to ED with chief complaint of unintentional weight loss, shortness of breath, and also left elbow pain has been dealing with COPD for quite some time but recently has gotten more short of breath and is not finding energy to perform much of activities of daily living. Has had very poor appetite normal eats only once a day. Son is also concerned she is not taking care of her with neuropathy because she did not have the oxygen tanks is back up and her concentrator is not working. She was noted be significantly hypoxic at PCP office for the scheduled appointment 93% on 5L last read [facility] 07-31-2024 Consult note Associated Order (s): IP CONSULT TO GERIATRICS [facility] Ger[facility] Medicine Inpatient Consult Service Admission Date: 07/30/2024 Admission Status: INPATIENT Chief Complaint: weight loss Reason for Appointment Geriatrics consulted for "falls at home, failure to thrive" Assessment & Plan Principal Problem: Adult failure to thrive Falls Debility --contributing factors include medications, COPD, malnutrition, cognitive decline --uses a cane at baseline. --PT and OT eval pending --09/21/23 Vit D 30 --check TSH --on several medications that can contribute to falls. See below. --Palliative care consult pending --Consult ST due to swallowing issue --Family looking into [place] waiver Weight loss Malnutrition --poor appetite (ate well this am) --continue Mirtazapine --Palliative consult --dietary consult --recommend psychiatry outpatient follow up for further review of medications Anxiety Depression --Wellbutrin XL 150mg daily - continue at this time. Recommend weaning outpatient. May contribute to weight loss. --Buspirone 15mg BID - per dispense report: fills for TID. Patient reports taking BID. Continue. --Mirtazapine 15mg at HS - continue. --Paroxetine 40 mg daily - Risk of anticholinergic side effects (falls, confusion). Recommend slow wean to avoid withdrawal. Will decrease to 30 mg daily. Further wean outpatient. --Seroquel 200mg at HS - change to 50mg HS PRN and will monitor. Concern for fall risk. --Patient previously reported failing trials of Duloxetine and Sertraline. --Takes Sudafed - discussed with patient to avoid --Recommend outpatient Psychiatry follow up. Cognitive deficits --patient knowledgeable of her medical history and medications --+ history of cognitive decline at home. + history of decline in ADL's and IADL's Debility, COPD, medications contributing --TSH pending, B12 WNL --Head imaging - CT head 04/28/24: no acute process. CT head 09/20/23: Unchanged small area of encephalomalacia in the lateral aspect of the right occipital lobe. --History concerning for baseline cognitive deficits. --Recommend outpatient follow up at [facility] ([facility] for more in depth cognitive evaluation when in usual state of health. Chronic pain --Start Tylenol 650mg BID --Takes Flexeril 5mg - ordered for BID dosing at home. Recommend avoiding/decreasing use due to fall/confusion risk. --Takes Oxycodone-Acetaminophen 5/325mg - ordered for 4 times a day dosing at home. While hospitalized, schedule Tylenol and agree with Oxycodone 5mg every 6 hours as needed. At risk for delirium --Risk factors: pain, advanced age, sensory impairments, acute illness, high risk medications, and baseline cognitive deficits --Encourage PO intake, time up in chair, family visits, supervised ambulation, and sleep hygiene --If agitated, assess for and consider treating for pain --QTc= 439 ms --Takes Seroquel 200mg at HS at home. Resume at lower dose 50mg HS PRN and monitor. --Continue scheduled melatonin at HS --Monitor for constipation/urinary retention - last BM 07/30 --Possible medication contributions: Steroids I spent total time of 90 minutes face to face with the patient and/or family discussing the diagnosis and importance of compliance with the treatment plan as well as documenting on the day of the visit. In addition, that total time includes the following: -Reviewing previous notes, -Reviewing labs, -Obtaining and/or reviewing separately obtained history, -Ordering prescription medications, tests and procedures, -Communicating results to the patient/family/caregiver, -Counseling/educating the patient/family/caregiver, -Documenting clinical information in the patients electronic record, and -Performing a medically appropriate exam and/or evaluation Subjective: HPI 68 y.o. year-old female with PMH of COPD, cervical cancer, DDD, DJD, Lung nodules, Osteoporosis, Depression, Compression fracture, Vitamin D deficiency, anxiety, presented to [facility] on 07/30/24 with complaints of weight loss and shortness of breath. Admitted with Failure to Thrive, severe protein-calorie malnutrition, close supracondylar fracture of left humerus, COPD. Ortho evaluated and diagnosed the fracture as subacute from Apr when she had a fall. Long arm cast will be placed and she will be nonweightbearing. Started on steroids for COPD. Known to inpatient geriatrics September 2023. Followed for polypharmacy, debility, chronic pain, cognitive decline. Daughter Karishma reported patient having memory issues for a year with progression. [place] she was managing her medications ok. Daughter felt she needed more help in the home. Lives with daughter and granddaughter. Psychiatry evaluated patient and medication adjusted. Nursing Delirium Screen (Nu-Desc): Nursing Delirium Symptom Checklist Total Score: 0 Conversation with caregiver: Karishma daughter -Secluded to herself. -Likes sweets and snacks. Does not eat well -Has a swallowing issue, chokes. -She does not want help from family -Memory: loses track of time. Misses medications at times. May forget what time it is. -They are trying to get her into [place] and working on Medicaid waiver. Advance Care Planning Code Status: Full Code Allergies[1] Current Medications[2] Medical History[3] Surgical History[4] Social History Tobacco Use Smoking status: Former Current packs/day: 0.00 Average packs/day: 1.5 packs/day for 39.5 years (59.3 ttl pk-yrs) Types: Cigarettes Start date: 1972 Quit date: 09/20/2011 Years since quittin.8 Passive exposure: Past Smokeless tobacco: Never Tobacco comments: Quit smoking: pt states she quit 4-5 years ago Substance Use Topics Alcohol use: Not Currently Comment: Approx once a year Social History Social History Narrative Not on file Family History Family History[5] Family Status Relation Name Status Neg Hx (Not Specified) Mother Sister Alive Father Brother Alive No partnership data on file Family history reviewed as above Review of Systems Constitutional: Negative for fatigue and fever. HENT: Negative for congestion. Respiratory: Positive for cough and shortness of breath. Cardiovascular: Negative for chest pain and leg swelling. Gastrointestinal: Negative for abdominal pain, constipation, diarrhea and nausea. Genitourinary: Negative for difficulty urinating and dysuria. Musculoskeletal: Positive for arthralgias and gait problem. Neurological: Positive for dizziness and weakness. Negative for tremors. Psychiatric/Behavioral: Positive for sleep disturbance. Negative for confusion and dysphoric mood. The patient is nervous/anxious (at times). Functional Status Prior to Admission: (I: Independent, A: Assisted, D: Dependent) ADLs I A D Notes Bathing [] [x] [] Dressing [x] [] [] Toileting [] [x] [] Shortness of breath. Transfers [x] [] [] Feeding [x] [] [] Ambulation [x] [] [] Assistive devices: straight cane IADLs I A D Telephone [x] [] [] Transportation [] [] [x] Shopping [] [] [x] Meal prep [] [x] [] Housework [] [] [x] Medications [x] [] [] Finances [] [] [x] Objective: BP 115/72 (BP Location: Right arm, Patient Position: Sitting) Pulse 87 Temp 36.4 C (97.6 F) (Temporal) Resp (!) 26 Ht 5' 4" (1.626 m) Wt 89 lb (40.4 kg) SpO2 93% BMI 15.28 kg/m No intake or output data in the 24 hours ending 07/31/24 0802 Wt Readings from Last 3 Encounters: 07/30/24 89 lb (40.4 kg) 04/27/24 108 lb (49 kg) 09/20/23 115 lb (52.2 kg) Physical Exam Vitals reviewed. Constitutional: General: She is not in acute distress. Appearance: She is ill-appearing (chronic). Cardiovascular: Rate and Rhythm: Normal rate and regular rhythm. Pulmonary: Effort: Pulmonary effort is normal. No respiratory distress. Breath sounds: Normal breath sounds. Abdominal: General: Bowel sounds are normal. There is no distension. Palpations: Abdomen is soft. Tenderness: There is no abdominal tenderness. Musculoskeletal: Right lower leg: No edema. Left lower leg: No edema. Neurological: Mental Status: She is alert. Comments: Slight shaking in hands No rigidity Psychiatric: Attention and Perception: Attention normal. Mood and Affect: Mood normal. Thought Content: Thought content is not paranoid or delusional. Labs and Imaging: Recent Results (from the past 24 hours) ECG 12 lead Collection Time: 07/30/24 4:46 PM Result Value Ref Range Heart Rate 95 bpm QRSD Interval 99 ms QT Interval 350 ms QTC Interval 439 ms P [place] 53 degrees QRS [place] -35 degrees T Wave [place] 43 degrees MI Interval 137 ms CBC auto differential Collection Time: 07/30/24 5:29 PM Result Value Ref Range Auto WBC 8.9 3.6 - 10.7 10*3/uL RBC 3.58 (L) 3.80 - 5.20 10*6/uL Hemoglobin 11.2 (L) 11.7 - 16.0 g/dL Hematocrit 37.0 35.0 - 47.0 % MCV 103.4 (H) 77.0 - 99.0 fL MCH 31.3 26.0 - 34.0 pg MCHC 30.3 (L) 30.5 - 36.0 % RDW 13.4 11.5 - 15.0 % Platelets 225 140 - 440 10*3/uL MPV 9.5 9.0 - 12.7 fL nRBC 0.0 0.0 - 2.0 /100 WBCs Neutrophils Relative 80.4 38.0 - 82.0 % Lymphocytes Relative 10.7 (L) 15.0 - 45.0 % Monocytes Relative 5.5 5.0 - 13.0 % Eosinophils Relative 2.7 0.0 - 6.0 % Basophils Relative 0.4 0.0 - 2.0 % Immature Grans % 0.3 0.0 - 2.0 % Neutrophils Absolute 7.2 1.8 - 7.5 10*3/uL Lymphocytes Absolute 1.0 1.0 - 4.3 10*3/uL Monocytes Absolute 0.5 0.0 - 0.9 10*3/uL Eosinophils Absolute 0.2 0.0 - 0.5 10*3/uL Basophils Absolute 0.0 0.0 - 0.2 10*3/uL Immature Grans Absolute 0.0 <0.1 10*3/uL Basic metabolic panel Collection Time: 07/30/24 5:29 PM Result Value Ref Range SODIUM 144 136 - 145 mmol/L POTASSIUM 5.0 3.5 - 5.1 mmol/L CHLORIDE 103 98 - 107 mmol/L CARBON DIOXIDE 37 (H) 23 - 31 mmol/L UREA NITROGEN 16 9 - 23 mg/dL CREATININE 0.63 0.57 - 1.11 mg/dL GLUCOSE 80 (L) 82 - 115 mg/dL CALCIUM 8.8 8.8 - 10.0 mg/dL ANION GAP 4 3 - 13 mmol/L eGFR >90.0 >60.0 mL/min/1.73m*2 Hepatic function panel Collection Time: 07/30/24 5:29 PM Result Value Ref Range BILIRUBIN, TOTAL 0.2 <1.2 mg/dL BILIRUBIN, DIRECT 0.1 <0.5 mg/dL ALKALINE PHOSPHATASE 97 40 - 150 U/L AST (SGOT) 21 <34 U/L ALT 10 <30 U/L ALBUMIN 3.0 (L) 3.4 - 4.8 g/dL TOTAL PROTEIN 6.5 6.4 - 8.3 g/dL Lipase Collection Time: 07/30/24 5:29 PM Result Value Ref Range LIPASE 18 <55 U/L Magnesium Collection Time: 07/30/24 5:29 PM Result Value Ref Range MAGNESIUM 1.9 1.6 - 2.6 mg/dL Vitamin B12 Collection Time: 07/30/24 5:29 PM Result Value Ref Range VITAMIN B12 639 213 - 816 pg/mL Folate Collection Time: 07/30/24 5:29 PM Result Value Ref Range FOLATE RESULT 5.2 (L) 7.0 - 31.4 ng/mL Procalcitonin Test Collection Time: 07/30/24 5:29 PM Result Value Ref Range PROCALCITONIN 0.03 <0.07 ng/mL C-reactive protein Collection Time: 07/30/24 5:29 PM Result Value Ref Range C REACTIVE PROTEIN 1.4 <5.0 mg/L Urinalysis complete with reflex to Culture Collection Time: 07/30/24 9:05 PM Result Value Ref Range Color, Urine Yellow Lt. Yellow Clarity, Urine Turbid (A) Clear pH, Urine 7.5 5.0 - 8.0 pH Leukocytes, Urine 25 (A) Negative Sandra/uL Nitrite, Urine Negative Negative Protein, Urine 10 (A) Negative mg/dL Glucose, Urine Normal Normal (<70) mg/dL Bilirubin, Urine Negative Negative mg/dL Ketones, Urine Negative Negative mg/dL Urobilinogen, Urine Normal Normal (0-1) mg/dL Blood, Urine Negative Negative mg/dL RBC, Urine 0-2 0 - 2 /HPF WBC, Urine 3-5 0 - 5 /HPF Squamous Epithelial, Urine 0-2 3 - 5 /HPF Bacteria, Urine Negative Negative /HPF Mucus, Urine Few Negative /LPF Amorphous Crystals, Urine Many (A) Negative /HPF Hyaline Casts, Urine 0-2 (A) Negative /LPF SPECIFIC GRAVITY OF URINE (NUMERIC) 1.023 1.005 - 1.030 Lab Results Component Value Date TSH 1.017 09/21/2023 No components found for: "B12" No results found for: "VITD25" Reviewed: active problem list, medication list, allergies, family history, social history, notes from last encounter, notes from last several encounters, lab results, imaging Follow-up: will follow with you DB Almeida CNP 07/31/24 8:02 AM [1] Allergies Allergen Reactions Pollen Extract Unknown [2] Current Facility-Administered Medications: acetaminophen (Tylenol) tablet 650 mg, 650 mg, Oral, q6h PRN OR acetaminophen (Tylenol) suppository 650 mg, 650 mg, Rectal, q6h PRN, Lauren Serna MD albuterol (2.5 MG/3ML) 0.083% nebulizer solution 2.5 mg, 2.5 mg, Nebulization, q4h PRN, Lauren Serna MD aspirin EC tablet 81 mg, 81 mg, Oral, Daily, Lauren Serna MD buPROPion XL (Wellbutrin XL) 24 hr tablet 150 mg, 150 mg, Oral, Daily, Lauren Serna MD busPIRone (Buspar) tablet 15 mg, 15 mg, Oral, BID, Lauren Serna MD, 15 mg at 07/31/24 0030 calcitonin (Miacalcin) injection 50 Units, 50 Units, IntraMUSCular, Daily, Lauren Serna MD cyclobenzaprine (Flexeril) tablet 5 mg, 5 mg, Oral, TID PRN, Lauren Serna MD enoxaparin (Lovenox) syringe 30 mg, 30 mg, SubCUTAneous, Daily, Lauren Serna MD fluticasone (Flonase) nasal spray 2 spray, 2 spray, Each Nostril, Daily, Lauren Serna MD melatonin tablet 3 mg, 3 mg, Oral, Nightly, Lauren Serna MD, 3 mg at 07/31/24 003 methylPREDNISolone sod suc (PF) (SOLU-Medrol) 40 MG injection 20 mg, 20 mg, IntraVENous, q12h, Lauren Serna MD, 20 mg at 07/31/24 0623 mirtazapine (Remeron) tablet 15 mg, 15 mg, Oral, Nightly, Lauren Serna MD, 15 mg at 07/31/24 003 mometasone-formoterol (Dulera 200) 200-5 MCG/ACT inhaler 2 puff, 2 puff, Inhalation, BID, Lauren Serna MD, 2 puff at 07/31/24 0032 montelukast (Singulair) tablet 10 mg, 10 mg, Oral, Nightly, Lauren Serna MD, 10 mg at 07/31/24 0031 naloxone (Narcan) injection 0.4 mg, 0.4 mg, IntraVENous, q5 min PRN, Lauren Serna MD ondansetron ODT (Zofran-ODT) disintegrating tablet 4 mg, 4 mg, Oral, q8h PRN OR ondansetron (Zofran) injection 4 mg, 4 mg, IntraVENous, q6h PRN, Lauren Serna MD oxyCODONE (Roxicodone) immediate release tablet 5 mg, 5 mg, Oral, q6h PRN, Lauren Serna MD, 5 mg at 07/31/24 0052 PARoxetine (Paxil) tablet 20 mg, 20 mg, Oral, q AM, Lauren Serna MD polyethylene glycol (PEG) 3350 (Miralax) packet 17 g, 17 g, Oral, Daily PRN, Lauren Serna MD tiotropium (Spiriva Respimat) 2.5 MCG/ACT inhaler 2 puff, 2 puff, Inhalation, Daily, Lauren Serna MD [3] Past Medical History: Diagnosis Date Abnormal stress test Acute exacerbation of chronic obstructive pulmonary disease (HCC) 04/12/2018 Allergic rhinitis Arthritis Asthma Bronchitis Cancer (CMS/HCC) ([facility]) skin Cervical cancer ([facility]) Chest pain COPD (chronic obstructive pulmonary disease) ([facility]) USE OXYGEN 3 L AT NIGHT DDD (degenerative disc disease), cervical Defect, retina, with detachment right DJD (degenerative joint disease), lumbar Emphysema lung (HCC) Former smoker Hematuria SCHEDULED FOR THE PROCEDURE /SURGERY ON 02/11/2017 Hypokalemia Lung nodules Near syncope 09/19/2023 Osteoporosis Palpitations Pneumonia Recurrent major depression ([facility]) Sciatica Thoracic compression fracture ([facility]) Vitamin D deficiency [4] Past Surgical History: Procedure Laterality Date CYSTOSCOPY 01/12/2017 OFFICE PROCEDURE CYSTOSCOPY 02/11/2017 C&P bladder biopsy EYE SURGERY detached retina 1994 HYSTERECTOMY 11/06/2019 ABDOMINAL RADICAL HYSTERECTOMY WITH BSO AND PELVIC LYMPH; DR. ZIYAD MENENDEZ [facility] OTHER SURGICAL HISTORY Left 12/19/2019 Med Port POWER Regular Size OTHER SURGICAL HISTORY Left 11/07/2022 Percutaneous skeltal fixation femoral fracture TUBAL LIGATION 1992 [5] Family History Problem Relation Name Age of Onset Colon cancer Neg Hx Ovarian cancer Neg Hx Cancer Mother breast- to liver Cancer Sister breast Cancer Father lung to brain No Known Problems Brother Uterine cancer Neg Hx [facility] 07-31-2024 Consult note Associated Order (s): Inpatient consult to orthopaedic surgery--left elbow fracture Inpatient consult to orthopaedic surgery--left elbow fracture Consult performed by: Betsey Gresham MD Consult ordered by: Lauren Serna MD Consult Note Date:07/31/2024 Patient Name:Gonzalo Deluca Date of :1955 Age:68 y.o. Reason for Consult: Left elbow fracture Chief Complaint Chief Complaint Patient presents with Weight Loss Pt in with family for c/o failure to thrive, weight loss, and shortness of breath. Pt arrives on 3L oxygen, has history of COPD and states has been short of breath with exertion. Pt states she has been losing weight and now weighs 89lbs. States was sent by PCP Shortness of Breath Progressive debility and shortness of breath History Obtained From Patient and chart History of Present Illness This patient was admitted for progressive weight loss and shortness of breath. Of orthopedic concern, she had a fall in early April. X-rays April 28 showed no fracture or acuity. She describes swelling and bruising at that time. She adamantly denies subsequent fall. She states she may have gotten too close to the wall and bumped the elbow." Since she was being admitted, she stated that she thought she "might as well have the elbow looked at as well." Current x-rays show a supracondylar fracture. Past Medical History Medical History[1] Past Surgical History Surgical History[2] Medications Prior to Admission medications Medication Sig Start Date End Date Taking? Authorizing Provider albuterol 108 (90 Base) MCG/ACT inhaler Inhale 2 puffs every 4 hours as needed. 08/06/21 Yes Historical Provider, aspirin 81 MG EC tablet Take 81 mg by mouth. 11/25/19 Yes Historical Provider, calcium carbonate-cholecalciferol (Oyster Shell) 250-3.125 MG-MCG tablet Take 1 tablet by mouth. Yes Historical Provider, Diclofenac Sodium (Voltaren) 1 % gel Apply 4 g topically 2 times daily. 02/18/23 Yes Earlene Echavarria MD Fluticasone Furoate-Vilanterol (Breo Ellipta) 200-25 MCG/ACT aerosol powder Inhale 1 puff daily. Yes Historical Provider, magnesium oxide (Mag-Ox) 400 mg tablet 400 mg daily. Yes Historical Provider, montelukast (Singulair) 10 MG tablet Take 10 mg by mouth Nightly. Yes Historical Provider, QUEtiapine (SEROquel) 200 MG tablet Take 200 mg by mouth Nightly. Yes Historical Provider, tiotropium (Spiriva Respimat) 2.5 MCG/ACT inhaler Inhale 2 puffs in the morning. 11/20/21 Yes Historical Provider, Zinc 50 MG capsule Take 50 mg by mouth. Yes Historical Provider, alendronate (Fosamax) 70 MG tablet Take 70 mg by mouth once a week. 12/14/21 12/14/22 Historical Provider, buPROPion XL (Wellbutrin XL) 150 MG 24 hr tablet Take 150 mg by mouth in the morning. 08/06/21 08/06/22 Historical Provider, busPIRone (Buspar) 15 MG tablet Take 1 tablet (15 mg) by mouth 2 times daily. 09/22/23 10/22/23 Roland Ortiz DO calcitonin (Miacalcin) 200 UNIT/ML injection Inject 0.25 mL (50 Units) into the shoulder, thigh, or buttocks daily. Patient not taking: Reported on 07/31/2024 02/19/23 Earlene Echavarria MD fluticasone (Flonase) 50 MCG/ACT nasal spray 2 sprays in the morning. 08/06/21 08/06/22 Historical Provider, melatonin 3 MG tablet Take 1 tablet (3 mg) by mouth Nightly. Patient not taking: Reported on 07/31/2024 09/22/23 Roland Ortiz DO methocarbamol (Robaxin) 500 MG tablet Take 2 tablets (1,000 mg) by mouth every 8 hours as needed for muscle spasms for up to 10 days. 10/16/23 10/26/23 Janneth Godinez PA-C mirtazapine (Remeron) 15 MG tablet Take 1 tablet (15 mg) by mouth Nightly. 09/22/23 10/22/23 Roland Ortiz DO nicotine (Nicoderm, Step 1) 21 MG/24HR patch Place 1 patch on the skin daily. Do not start before November 09, 2022. 11/09/22 12/09/22 Raul Whipple, DO PARoxetine (Paxil) 20 MG tablet Take 1 tablet (20 mg) by mouth every morning. 09/22/23 10/22/23 Roland Ortiz DO atorvastatin (Lipitor) 40 MG tablet Take 1 tablet by mouth Nightly. 11/24/19 07/30/24 Historical Provider, gabapentin (Neurontin) 600 MG tablet Take 1 tablet by mouth daily. 02/08/20 07/30/24 Historical Provider, lidocaine (Lidoderm) 5 % patch Apply 1 patch topically daily. Remove & discard patch within 12 hours or as directed by . 10/16/23 07/30/24 Janneth Godinez PA-C Allergies Pollen extract Social History reports that she quit smoking about 12 years ago. Her smoking use included cigarettes. She started smoking about 52 years ago. She has a 59.3 pack-year smoking history. She has been exposed to tobacco smoke. She has never used smokeless tobacco. She reports that she does not currently use alcohol. She reports that she does not use drugs. Family History Family History[3] Review of Systems See H&P Physical Exam BP 115/72 (BP Location: Right arm, Patient Position: Sitting) Pulse 87 Temp 36.4 C (97.6 F) (Temporal) Resp (!) 26 Ht 1.626 m (5' 4") Wt 40.4 kg (89 lb) SpO2 93% BMI 15.28 kg/m General: Well-developed, very thin and malnourished. Appears older than her stated age of 68. She is in no acute distress. Neurologic: Alert and oriented x 3. Mood and affect normal. Sensory exams intact to light touch bilateral upper extremities. Vascular: No cyanosis, clubbing or edema. Musculoskeletal: Full function and range of motion to hands wrist and fingers. Left upper extremity is immobilized in long-arm splint. She is actively using this arm to eat breakfast. Labs CBC: Recent Labs 07/30/24 1729 WBC 8.9 RBC 3.58* HGB 11.2* HCT 37.0 MCV 103.4* RDW 13.4 PLT 225 CHEMISTRIES: Recent Labs 07/30/24 1729 NA 144 K 5.0 CL 103 CO2 37* BUN 16 CREATININE 0.63 GLUCOSE 80* MG 1.9 PT/INR:No results for input(s): "PROTIME", "INR" in the last 72 hours. APTT:No results for input(s): "APTT" in the last 72 hours. LIVER PROFILE: Recent Labs 07/30/24 1729 AST 21 ALT 10 BILIDIR 0.1 BILITOT 0.2 ALKPHOS 97 Imaging/Diagnostics Reviewed x-rays include: Left elbow April 28, 2024 shows no fractures or deformities. No effusion and no soft tissue signs or swelling. Current left elbow x-ray on admission shows a somewhat impacted supracondylar humerus fracture which is far distal and slightly displaced. Although it was read as acute, there are some changes that suggest this could be subacute. Assessment 1. Left supracondylar humerus fracture, extra-articular, presumed subacute from April 28, 2024 2. Osteoporosis 3. Severe malnutrition, BMI 15.28 4. Osteoporosis confirmed by last DEXA scan December 10, 2016 Plan 1. History suggest that this is a fracture that is now over 3 months old. If so, it is highly likely to go on to a nonunion. Her medical condition makes her at high risk for pulmonary complication for surgical reconstruction. Furthermore, her severe osteoporosis and the extremely small distal fragment would likely make open reduction and internal fixation a failure. If this becomes a chronic nonunion and is not symptomatically acceptable. If she ever is a surgical candidate, it would likely be an elbow replacement. I will plan on putting a long-arm arm cast on her in the next couple days as the schedule permits. She needs to be nonweightbearing on this upper extremity. Thank you for the consult we will follow with you. Electronically signed by Betsey Gresham MD [1] Past Medical History: Diagnosis Date Abnormal stress test Acute exacerbation of chronic obstructive pulmonary disease (HCC) 04/12/2018 Allergic rhinitis Arthritis Asthma Bronchitis Cancer (CMS/HCC) (HCC) skin Cervical cancer (HCC) Chest pain COPD (chronic obstructive pulmonary disease) (HCC) USE OXYGEN 3 L AT NIGHT DDD (degenerative disc disease), cervical Defect, retina, with detachment right DJD (degenerative joint disease), lumbar Emphysema lung (HCC) Former smoker Hematuria SCHEDULED FOR THE PROCEDURE /SURGERY ON 02/11/2017 Hypokalemia Lung nodules Near syncope 09/19/2023 Osteoporosis Palpitations Pneumonia Recurrent major depression (HCC) Sciatica Thoracic compression fracture (HCC) Vitamin D deficiency [2] Past Surgical History: Procedure Laterality Date CYSTOSCOPY 01/12/2017 OFFICE PROCEDURE CYSTOSCOPY 02/11/2017 C&P bladder biopsy EYE SURGERY detached retina 1994 HYSTERECTOMY 11/06/2019 ABDOMINAL RADICAL HYSTERECTOMY WITH BSO AND PELVIC LYMPH; DR. ZIYAD MENENDEZ [facility] OTHER SURGICAL HISTORY Left 12/19/2019 Med Port POWER Regular Size OTHER SURGICAL HISTORY Left 11/07/2022 Percutaneous skeltal fixation femoral fracture TUBAL LIGATION 1992 [3] Family History Problem Relation Name Age of Onset Colon cancer Neg Hx Ovarian cancer Neg Hx Cancer Mother breast- to liver Cancer Sister breast Cancer Father lung to brain No Known Problems Brother Uterine cancer Neg Hx [facility] 07-30-2024 History and physical note History and Physical [facility] Gonzalo Deluca : 1955 AGE 68 y.o. YEARS Note Date 07/30/2024 Primary Care Physician:HERMINIA CASE MD Current Providers as of 07/30/2024 PCP: Herminia Case MD Care Team Provider: Ziyad Menendez MD Care Team Provider: DB Durham CNP Care Team Provider: DB Kohli CNP Referring Provider: not found, starting on TueJuly 30, 2024 12:00 AM Attending Provider: Luis E Keating DO, starting on TueJuly 30, 2024 4:52 PM (Active) Registered Nurse: Herminia Villanueva RN, starting on TueJuly 30, 2024 7:29 PM (Active) Chief Complaint: Weight Loss (Pt in with family for c/o failure to thrive, weight loss, and shortness of breath. Pt arrives on 3L oxygen, has history of COPD and states has been short of breath with exertion. Pt states she has been losing weight and now weighs 89lbs. States was sent by PCP) and Shortness of Breath HPI: She was referred in from her pcp office She reports she fell in apr, she had left elbow pain, and her armed turned black for weeks back then and was swollen since then. Tonight in the ed it was xrayed, she reports she did not fall recently but has been swollen and painful since april She is not very hungry at home, she denies problems eating or drinking Her weight is down, she has lost about 40 lbs She admits that she has less than ideal p.o. intake. Appetite is a big reason for her if she is just not eating or drinking very much She does have COPD. She is on oxygen and inhalers at home which she was taking she continues to be short of breath sometimes at rest but usually with exertion. She has a cough and recently she was coughing up some yellow phlegm She has fallen other times in the past, but not recently When she went to see her PCP with all these problems she was referred into the hospital for further evaluation. When I currently see her in the ER she is mildly short of breath on oxygen alert answering questions Review of Systems: General: Skin: HEENT: Cardiovascular Fever n Rashes Difficulty chewing Chest Pain n Chills n Sores Appetite Loss She hardly has much of an appetite at all Chest Pressure n Fatigue A little Epistaxis Orthopnea n Sweats n Hearing loss Palpitations n GI: Tinnitus GERD n Vision quality RESP: Abdominal Pain n : SOB/ADRIAN y Nausea n Hematuria n Cough y Vomiting n Dysuria n Productive/Sputum yellow Hematemesis NEURO: Urgency n Hemoptysis n Diarrhea n Headaches n Frequency n Wheezing some Constipation Seizures n Times at night urinating n Heamatochezia Neuropathy n catheter present n MSK: Melena Focal weakness n Hesitancy Focal Numbness Incontinence Acute joint pain Left elbow pain Dizzy/Vertigo Redness n Difficulty speaking Heme/Lymph Swelling n Difficulty walking Lymphadenopathy Myalgia Ataxia Chronic joint pain Left elbow Past Medical History: Diagnosis Date Abnormal stress test Acute exacerbation of chronic obstructive pulmonary disease (HCC) 04/12/2018 Allergic rhinitis Arthritis Asthma Bronchitis Cancer (CMS/HCC) ([facility]) skin Cervical cancer (HCC) Chest pain COPD (chronic obstructive pulmonary disease) ([facility]) USE OXYGEN 3 L AT NIGHT DDD (degenerative disc disease), cervical Defect, retina, with detachment right DJD (degenerative joint disease), lumbar Emphysema lung ([facility]) Former smoker Hematuria SCHEDULED FOR THE PROCEDURE /SURGERY ON 02/11/2017 Hypokalemia Lung nodules Near syncope 09/19/2023 Osteoporosis Palpitations Pneumonia Recurrent major depression ([facility]) Sciatica Thoracic compression fracture ([facility]) Vitamin D deficiency Past Surgical History: Procedure Laterality Date CYSTOSCOPY 01/12/2017 OFFICE PROCEDURE CYSTOSCOPY 02/11/2017 C&P bladder biopsy EYE SURGERY detached retina 1994 HYSTERECTOMY 11/06/2019 ABDOMINAL RADICAL HYSTERECTOMY WITH BSO AND PELVIC LYMPH; DR. ZIYAD FISH OTHER SURGICAL HISTORY Left 12/19/2019 Med Port POWER Regular Size OTHER SURGICAL HISTORY Left 11/07/2022 Percutaneous skeltal fixation femoral fracture TUBAL LIGATION 1992 Allergies Allergen Reactions Pollen Extract Unknown Medications Prior to Admission: Medications Reviewed with patient at bedside - were able to verify most meds but not completely Current Outpatient Medications Medication Instructions albuterol 108 (90 Base) MCG/ACT inhaler 2 puffs, Inhalation, Every 4 hours PRN alendronate (FOSAMAX) 70 mg, Oral, Weekly aspirin 81 mg, Oral buPROPion XL (WELLBUTRIN XL) 150 mg, Oral, Daily busPIRone (BUSPAR) 15 mg, Oral, 2 times daily calcitonin (MIACALCIN) 50 Units, IntraMUSCular, Daily calcium carbonate-cholecalciferol (Oyster Shell) 250-3.125 MG-MCG tablet 1 tablet, Oral Diclofenac Sodium (VOLTAREN) 4 g, Topical, 2 times daily fluticasone (Flonase) 50 MCG/ACT nasal spray 2 sprays, Does not apply, Daily Fluticasone Furoate-Vilanterol (Breo Ellipta) 200-25 MCG/ACT aerosol powder 1 puff, Inhalation, Daily magnesium oxide (MAG-OX) 400 mg, Daily melatonin 3 mg, Oral, Nightly methocarbamol (ROBAXIN) 1,000 mg, Oral, Every 8 hours PRN mirtazapine (REMERON) 15 mg, Oral, Nightly montelukast (SINGULAIR) 10 mg, Oral, Nightly nicotine (Nicoderm, Step 1) 21 MG/24HR patch 1 patch, TransDERmal, Daily PARoxetine (PAXIL) 20 mg, Oral, Every morning QUEtiapine (SEROQUEL) 200 mg, Oral, Nightly tiotropium (Spiriva Respimat) 2.5 MCG/ACT inhaler 2 puffs, Inhalation, Daily Zinc 50 mg, Oral Social History Social History Tobacco Use Smoking status: Former Current packs/day: 0.00 Types: Cigarettes Quit date: 09/20/2011 Years since quittin.8 Smokeless tobacco: Never Tobacco comments: Quit smoking: pt states she quit 4-5 years ago Substance Use Topics Alcohol use: Not Currently Comment: Approx once a year Family History Family History Problem Relation Name Age of Onset Colon cancer Neg Hx Ovarian cancer Neg Hx Cancer Mother breast- to liver Cancer Sister breast Cancer Father lung to brain No Known Problems Brother Uterine cancer Neg Hx Physical Exam Temp (24hrs), Av.4 C (99.4 F), Min:37.4 C (99.4 F), Max:37.4 C (99.4 F) Body mass index is 15.28 kg/m .BMI Classification: Underweight (BMI <18.5) BP 121/82 Pulse 93 Temp 37.4 C (99.4 F) (Temporal) Resp 20 Ht 5' 4" (1.626 m) Wt 89 lb (40.4 kg) SpO2 93% BMI 15.28 kg/m Pulse Ox: SpO2 Av.6 % Min: 92 % Max: 97 % Supplemental O2: O2 Flow Rate (L/min): 3 L/min General appearance: No apparent distress, appears stated age and cooperative with exam she appears very same on oxygen mild respiratory distress HEENT: Normal cephalic, atraumatic without obvious deformity. Pupils equal, round, and reactive to light. Extra ocular muscles intact. Conjunctivae/corneas clear. Neck: Supple, with full range of motion. No jugular venous distention. Trachea midline. No lymphadenopathy. Respiratory: Decreased breath sounds with wheezing Cardiovascular: Regular rate and rhythm with normal S1/S2 without murmurs, rubs or gallops. Abdomen nondistended, normoactive bowel sounds Musculoskeletal: Muscle wasting and no edema Skin: Skin color, texture, turgor normal. No rashes or lesions. Neurologic: Neurovascularly intact without any focal sensory/motor deficits. Cranial nerves grossly intact. Labs Admission on 07/30/2024 Component Date Value Heart Rate 07/30/2024 95 QRSD Interval 07/30/2024 99 QT Interval 07/30/2024 350 QTC Interval 07/30/2024 439 P Sp[place] 07/30/2024 53 QRS Sp[place]ale 07/30/2024 -35 T Wave [place] 07/30/2024 43 MI Interval 07/30/2024 137 Auto WBC 07/30/2024 8.9 RBC 07/30/2024 3.58 (L) Hemoglobin 07/30/2024 11.2 (L) Hematocrit 07/30/2024 37.0 MCV 07/30/2024 103.4 (H) MCH 07/30/2024 31.3 MCHC 07/30/2024 30.3 (L) RDW 07/30/2024 13.4 Platelets 07/30/2024 225 MPV 07/30/2024 9.5 nRBC 07/30/2024 0.0 Neutrophils Relative 07/30/2024 80.4 Lymphocytes Relative 07/30/2024 10.7 (L) Monocytes Relative 07/30/2024 5.5 Eosinophils Relative 07/30/2024 2.7 Basophils Relative 07/30/2024 0.4 Immature Grans % 07/30/2024 0.3 Neutrophils Absolute 07/30/2024 7.2 Lymphocytes Absolute 07/30/2024 1.0 Monocytes Absolute 07/30/2024 0.5 Eosinophils Absolute 07/30/2024 0.2 Basophils Absolute 07/30/2024 0.0 Immature Grans Absolute 07/30/2024 0.0 SODIUM 07/30/2024 144 POTASSIUM 07/30/2024 5.0 CHLORIDE 07/30/2024 103 CARBON DIOXIDE 07/30/2024 37 (H) UREA NITROGEN 07/30/2024 16 CREATININE 07/30/2024 0.63 GLUCOSE 07/30/2024 80 (L) CALCIUM 07/30/2024 8.8 ANION GAP 07/30/2024 4 eGFR 07/30/2024 >90.0 BILIRUBIN, TOTAL 07/30/2024 0.2 BILIRUBIN, DIRECT 07/30/2024 0.1 ALKALINE PHOSPHATASE 07/30/2024 97 AST (SGOT) 07/30/2024 21 ALT 07/30/2024 10 ALBUMIN 07/30/2024 3.0 (L) TOTAL PROTEIN 07/30/2024 6.5 LIPASE 07/30/2024 18 MAGNESIUM 07/30/2024 1.9 VITAMIN B12 07/30/2024 639 FOLATE RESULT 07/30/2024 5.2 (L) Color, Urine 07/30/2024 Yellow Clarity, Urine 07/30/2024 Turbid (A) pH, Urine 07/30/2024 7.5 Leukocytes, Urine 07/30/2024 25 (A) Nitrite, Urine 07/30/2024 Negative Protein, Urine 07/30/2024 10 (A) Glucose, Urine 07/30/2024 Normal Bilirubin, Urine 07/30/2024 Negative Ketones, Urine 07/30/2024 Negative Urobilinogen, Urine 07/30/2024 Normal Blood, Urine 07/30/2024 Negative RBC, Urine 07/30/2024 0-2 WBC, Urine 07/30/2024 3-5 Squamous Epithelial, Uri* 07/30/2024 0-2 Bacteria, Urine 07/30/2024 Negative Mucus, Urine 07/30/2024 Few Amorphous Crystals, Urine 07/30/2024 Many (A) Hyaline Casts, Urine 07/30/2024 0-2 (A) SPECIFIC GRAVITY OF URIN* 07/30/2024 1.023 EKG Encounter Date: 07/30/24 ECG 12 lead Result Value Heart Rate 95 QRSD Interval 99 QT Interval 350 QTC Interval 439 P Sp[place] 53 QRS Spindale -35 T Wave Sp[place] 43 MI Interval 137 Impression Sinus rhythm Left axis deviation Electronically Signed On 07-30-2024 21:23:27 EDT by Evelio Sterling Assessment/Plan and Medical Decision Making Left elbow fracture She reports from fall in the past Has had swollen since then. I suspect this is a remote injury as she denies her to get recently In the emergency room she was placed in a splint. She has seen [facility] orthopedics in the past they will be asked to see and evaluate her Cough, copd Cxr clear She is coughing up yellow phlegm She is taking her inhalers and chronic oxygen at home and on admission she has a normal white blood cell count at 8.9, her procalcitonin is normal at 0.03 Nine 9.4 Pulses Fast at 95 Blood Pressure Normal but on the Lower Side at 102/70 She is requiring 3 L of oxygen She meets 1 SIRS criteria by tachycardia At this time her being afebrile, abnormal cell count having low procalcitonin I will hold off on antibiotics request respiratory viral panel I will continue her inhalers. I will start her on IV Solu-Medrol scheduled 20 mg p.o. twice daily for COPD exacerbation Weight loss She does not eat well She denies any physical problems chewing or swallowing her food. There is no problems any food getting stuck in her throat. She admits she does not eat very much and has very little appetite. She reports has not had a gi workup in the past. When I discussed with her about a GI workup she was somewhat hesitant to get procedures done not sure if she wants to go that route although she would consider getting an EGD she probably would decline a colonoscopy. With her profound weight loss appetite stimulant may be beneficial but nonetheless supplementing herself with protein shakes daily should be something more able to achieve since her BMI is down. I will ask both palliative care and geriatrics to see and assist She is already on Remeron at home In reviewing her chart I do not see any abdominal imaging performed in the last few years I think given the severity of her low BMI and declining status at home a CT of her chest abdomen pelvis would be warranted to do as an inpatient to look for any possible cause of her weight loss Some old imaging did have some pulmonary nodules I reconciled her home medications with her in the room I discussed the need for admission with the emergency provider. -DVT prophylaxis: [x] Lovenox [] Heparin [] SCDs [x] Encourage ambulation [] Already on Anticoagulation [] Pharmocologic prophylaxis on hold to due risk bleed/procedure [] Low risk, ambulatory [] Both pharmacologic and mechanical contraindicated 60 minutes - Time spent on admission 07/30/2024 Gonzalo Deluca [id number] Any scheduled follow up appointments Future Appointments Date Time Provider Department Center 09/04/2024 2:30 PM [facility] 1 [facility] None Extended Emergency Contact Information Primary Emergency Contact: Karishma Deluca Address: [address] [place] [address] [place] [address] [facility] Mobile Relation: Daughter Secondary Emergency Contact: Jace Deluca Mobile Relation: Son Portions of this note may be electronically transcribed. Please forward a copy of this H&P to the primary care physician. [facility] Work Phone: 07-30-[address] [facility] 07-30-2024 History and physical note History and Physical [facility] Gonzalo Deluca : 1955 AGE 68 y.o. YEARS Note Date 07/30/2024 Primary Care Physician:HERMINIA CASE MD Current Providers as of 07/30/2024 PCP: Herminia Case MD Care Team Provider: Ziyad Menendez MD Care Team Provider: DB Durham CNP Care Team Provider: DB Kohli CNP Referring Provider: not found, starting on TueJuly 30, 2024 12:00 AM Attending Provider: Luis E Keating DO, starting on TueJuly 30, 2024 4:52 PM (Active) Registered Nurse: Herminia Villanueva RN, starting on TueJuly 30, 2024 7:29 PM (Active) Chief Complaint: Weight Loss (Pt in with family for c/o failure to thrive, weight loss, and shortness of breath. Pt arrives on 3L oxygen, has history of COPD and states has been short of breath with exertion. Pt states she has been losing weight and now weighs 89lbs. States was sent by PCP) and Shortness of Breath HPI: She was referred in from her pcp office She reports she fell in apr, she had left elbow pain, and her armed turned black for weeks back then and was swollen since then. Tonight in the ed it was xrayed, she reports she did not fall recently but has been swollen and painful since april She is not very hungry at home, she denies problems eating or drinking Her weight is down, she has lost about 40 lbs She admits that she has less than ideal p.o. intake. Appetite is a big reason for her if she is just not eating or drinking very much She does have COPD. She is on oxygen and inhalers at home which she was taking she continues to be short of breath sometimes at rest but usually with exertion. She has a cough and recently she was coughing up some yellow phlegm She has fallen other times in the past, but not recently When she went to see her PCP with all these problems she was referred into the hospital for further evaluation. When I currently see her in the ER she is mildly short of breath on oxygen alert answering questions Review of Systems: General: Skin: HEENT: Cardiovascular Fever n Rashes Difficulty chewing Chest Pain n Chills n Sores Appetite Loss She hardly has much of an appetite at all Chest Pressure n Fatigue A little Epistaxis Orthopnea n Sweats n Hearing loss Palpitations n GI: Tinnitus GERD n Vision quality RESP: Abdominal Pain n : SOB/ADRIAN y Nausea n Hematuria n Cough y Vomiting n Dysuria n Productive/Sputum yellow Hematemesis NEURO: Urgency n Hemoptysis n Diarrhea n Headaches n Frequency n Wheezing some Constipation Seizures n Times at night urinating n Heamatochezia Neuropathy n catheter present n MSK: Melena Focal weakness n Hesitancy Focal Numbness Incontinence Acute joint pain Left elbow pain Dizzy/Vertigo Redness n Difficulty speaking Heme/Lymph Swelling n Difficulty walking Lymphadenopathy Myalgia Ataxia Chronic joint pain Left elbow Past Medical History: Diagnosis Date Abnormal stress test Acute exacerbation of chronic obstructive pulmonary disease (HCC) 04/12/2018 Allergic rhinitis Arthritis Asthma Bronchitis Cancer ([facility]/HCC) ([facility]) skin Cervical cancer (HCC) Chest pain COPD (chronic obstructive pulmonary disease) ([facility]) USE OXYGEN 3 L AT NIGHT DDD (degenerative disc disease), cervical Defect, retina, with detachment right DJD (degenerative joint disease), lumbar Emphysema lung ([facility]) Former smoker Hematuria SCHEDULED FOR THE PROCEDURE /SURGERY ON 02/11/2017 Hypokalemia Lung nodules Near syncope 09/19/2023 Osteoporosis Palpitations Pneumonia Recurrent major depression ([facility]) Sciatica Thoracic compression fracture ([facility]) Vitamin D deficiency Past Surgical History: Procedure Laterality Date CYSTOSCOPY 01/12/2017 OFFICE PROCEDURE CYSTOSCOPY 02/11/2017 C&P bladder biopsy EYE SURGERY detached retina 1994 HYSTERECTOMY 11/06/2019 ABDOMINAL RADICAL HYSTERECTOMY WITH BSO AND PELVIC LYMPH; DR. ZIYAD FISH OTHER SURGICAL HISTORY Left 12/19/2019 Med Port POWER Regular Size OTHER SURGICAL HISTORY Left 11/07/2022 Percutaneous skeltal fixation femoral fracture TUBAL LIGATION 1992 Allergies Allergen Reactions Pollen Extract Unknown Medications Prior to Admission: Medications Reviewed with patient at bedside - were able to verify most meds but not completely Current Outpatient Medications Medication Instructions albuterol 108 (90 Base) MCG/ACT inhaler 2 puffs, Inhalation, Every 4 hours PRN alendronate (FOSAMAX) 70 mg, Oral, Weekly aspirin 81 mg, Oral buPROPion XL (WELLBUTRIN XL) 150 mg, Oral, Daily busPIRone (BUSPAR) 15 mg, Oral, 2 times daily calcitonin (MIACALCIN) 50 Units, IntraMUSCular, Daily calcium carbonate-cholecalciferol (Oyster Shell) 250-3.125 MG-MCG tablet 1 tablet, Oral Diclofenac Sodium (VOLTAREN) 4 g, Topical, 2 times daily fluticasone (Flonase) 50 MCG/ACT nasal spray 2 sprays, Does not apply, Daily Fluticasone Furoate-Vilanterol (Breo Ellipta) 200-25 MCG/ACT aerosol powder 1 puff, Inhalation, Daily magnesium oxide (MAG-OX) 400 mg, Daily melatonin 3 mg, Oral, Nightly methocarbamol (ROBAXIN) 1,000 mg, Oral, Every 8 hours PRN mirtazapine (REMERON) 15 mg, Oral, Nightly montelukast (SINGULAIR) 10 mg, Oral, Nightly nicotine (Nicoderm, Step 1) 21 MG/24HR patch 1 patch, TransDERmal, Daily PARoxetine (PAXIL) 20 mg, Oral, Every morning QUEtiapine (SEROQUEL) 200 mg, Oral, Nightly tiotropium (Spiriva Respimat) 2.5 MCG/ACT inhaler 2 puffs, Inhalation, Daily Zinc 50 mg, Oral Social History Social History Tobacco Use Smoking status: Former Current packs/day: 0.00 Types: Cigarettes Quit date: 09/20/2011 Years since quittin.8 Smokeless tobacco: Never Tobacco comments: Quit smoking: pt states she quit 4-5 years ago Substance Use Topics Alcohol use: Not Currently Comment: Approx once a year Family History Family History Problem Relation Name Age of Onset Colon cancer Neg Hx Ovarian cancer Neg Hx Cancer Mother breast- to liver Cancer Sister breast Cancer Father lung to brain No Known Problems Brother Uterine cancer Neg Hx Physical Exam Temp (24hrs), Av.4 C (99.4 F), Min:37.4 C (99.4 F), Max:37.4 C (99.4 F) Body mass index is 15.28 kg/m .BMI Classification: Underweight (BMI <18.5) BP 121/82 Pulse 93 Temp 37.4 C (99.4 F) (Temporal) Resp 20 Ht 5' 4" (1.626 m) Wt 89 lb (40.4 kg) SpO2 93% BMI 15.28 kg/m Pulse Ox: SpO2 Av.6 % Min: 92 % Max: 97 % Supplemental O2: O2 Flow Rate (L/min): 3 L/min General appearance: No apparent distress, appears stated age and cooperative with exam she appears very same on oxygen mild respiratory distress HEENT: Normal cephalic, atraumatic without obvious deformity. Pupils equal, round, and reactive to light. Extra ocular muscles intact. Conjunctivae/corneas clear. Neck: Supple, with full range of motion. No jugular venous distention. Trachea midline. No lymphadenopathy. Respiratory: Decreased breath sounds with wheezing Cardiovascular: Regular rate and rhythm with normal S1/S2 without murmurs, rubs or gallops. Abdomen nondistended, normoactive bowel sounds Musculoskeletal: Muscle wasting and no edema Skin: Skin color, texture, turgor normal. No rashes or lesions. Neurologic: Neurovascularly intact without any focal sensory/motor deficits. Cranial nerves grossly intact. Labs Admission on 07/30/2024 Component Date Value Heart Rate 07/30/2024 95 QRSD Interval 07/30/2024 99 QT Interval 07/30/2024 350 QTC Interval 07/30/2024 439 P Sp[place] 07/30/2024 53 QRS [place] 07/30/2024 -35 T Wave [place] 07/30/2024 43 MI Interval 07/30/2024 137 Auto WBC 07/30/2024 8.9 RBC 07/30/2024 3.58 (L) Hemoglobin 07/30/2024 11.2 (L) Hematocrit 07/30/2024 37.0 MCV 07/30/2024 103.4 (H) MCH 07/30/2024 31.3 MCHC 07/30/2024 30.3 (L) RDW 07/30/2024 13.4 Platelets 07/30/2024 225 MPV 07/30/2024 9.5 nRBC 07/30/2024 0.0 Neutrophils Relative 07/30/2024 80.4 Lymphocytes Relative 07/30/2024 10.7 (L) Monocytes Relative 07/30/2024 5.5 Eosinophils Relative 07/30/2024 2.7 Basophils Relative 07/30/2024 0.4 Immature Grans % 07/30/2024 0.3 Neutrophils Absolute 07/30/2024 7.2 Lymphocytes Absolute 07/30/2024 1.0 Monocytes Absolute 07/30/2024 0.5 Eosinophils Absolute 07/30/2024 0.2 Basophils Absolute 07/30/2024 0.0 Immature Grans Absolute 07/30/2024 0.0 SODIUM 07/30/2024 144 POTASSIUM 07/30/2024 5.0 CHLORIDE 07/30/2024 103 CARBON DIOXIDE 07/30/2024 37 (H) UREA NITROGEN 07/30/2024 16 CREATININE 07/30/2024 0.63 GLUCOSE 07/30/2024 80 (L) CALCIUM 07/30/2024 8.8 ANION GAP 07/30/2024 4 eGFR 07/30/2024 >90.0 BILIRUBIN, TOTAL 07/30/2024 0.2 BILIRUBIN, DIRECT 07/30/2024 0.1 ALKALINE PHOSPHATASE 07/30/2024 97 AST (SGOT) 07/30/2024 21 ALT 07/30/2024 10 ALBUMIN 07/30/2024 3.0 (L) TOTAL PROTEIN 07/30/2024 6.5 LIPASE 07/30/2024 18 MAGNESIUM 07/30/2024 1.9 VITAMIN B12 07/30/2024 639 FOLATE RESULT 07/30/2024 5.2 (L) Color, Urine 07/30/2024 Yellow Clarity, Urine 07/30/2024 Turbid (A) pH, Urine 07/30/2024 7.5 Leukocytes, Urine 07/30/2024 25 (A) Nitrite, Urine 07/30/2024 Negative Protein, Urine 07/30/2024 10 (A) Glucose, Urine 07/30/2024 Normal Bilirubin, Urine 07/30/2024 Negative Ketones, Urine 07/30/2024 Negative Urobilinogen, Urine 07/30/2024 Normal Blood, Urine 07/30/2024 Negative RBC, Urine 07/30/2024 0-2 WBC, Urine 07/30/2024 3-5 Squamous Epithelial, Uri* 07/30/2024 0-2 Bacteria, Urine 07/30/2024 Negative Mucus, Urine 07/30/2024 Few Amorphous Crystals, Urine 07/30/2024 Many (A) Hyaline Casts, Urine 07/30/2024 0-2 (A) SPECIFIC GRAVITY OF URIN* 07/30/2024 1.023 EKG Encounter Date: 07/30/24 ECG 12 lead Result Value Heart Rate 95 QRSD Interval 99 QT Interval 350 QTC Interval 439 P Sp[place] 53 QRS Sp[place]ale -35 T Wave [place] 43 MI Interval 137 Impression Sinus rhythm Left axis deviation Electronically Signed On 07-30-2024 21:23:27 EDT by Evelio Sterling Assessment/Plan and Medical Decision Making Left elbow fracture She reports from fall in the past Has had swollen since then. I suspect this is a remote injury as she denies her to get recently In the emergency room she was placed in a splint. She has seen [facility] orthopedics in the past they will be asked to see and evaluate her Cough, copd Cxr clear She is coughing up yellow phlegm She is taking her inhalers and chronic oxygen at home and on admission she has a normal white blood cell count at 8.9, her procalcitonin is normal at 0.03 Nine 9.4 Pulses Fast at 95 Blood Pressure Normal but on the Lower Side at 102/70 She is requiring 3 L of oxygen She meets 1 SIRS criteria by tachycardia At this time her being afebrile, abnormal cell count having low procalcitonin I will hold off on antibiotics request respiratory viral panel I will continue her inhalers. I will start her on IV Solu-Medrol scheduled 20 mg p.o. twice daily for COPD exacerbation Weight loss She does not eat well She denies any physical problems chewing or swallowing her food. There is no problems any food getting stuck in her throat. She admits she does not eat very much and has very little appetite. She reports has not had a gi workup in the past. When I discussed with her about a GI workup she was somewhat hesitant to get procedures done not sure if she wants to go that route although she would consider getting an EGD she probably would decline a colonoscopy. With her profound weight loss appetite stimulant may be beneficial but nonetheless supplementing herself with protein shakes daily should be something more able to achieve since her BMI is down. I will ask both palliative care and geriatrics to see and assist She is already on Remeron at home In reviewing her chart I do not see any abdominal imaging performed in the last few years I think given the severity of her low BMI and declining status at home a CT of her chest abdomen pelvis would be warranted to do as an inpatient to look for any possible cause of her weight loss Some old imaging did have some pulmonary nodules I reconciled her home medications with her in the room I discussed the need for admission with the emergency provider. -DVT prophylaxis: [x] Lovenox [] Heparin [] SCDs [x] Encourage ambulation [] Already on Anticoagulation [] Pharmocologic prophylaxis on hold to due risk bleed/procedure [] Low risk, ambulatory [] Both pharmacologic and mechanical contraindicated 60 minutes - Time spent on admission 07/30/2024 Gonzalo Deluca [id number] Any scheduled follow up appointments Future Appointments Date Time Provider Department Center 09/04/2024 2:30 PM [facility] None Extended Emergency Contact Information Primary Emergency Contact: Karishma Deluca Address: [address] [place] [address] [facility] Mobile Relation: Daughter Secondary Emergency Contact: Jace Deluca Mobile Relation: Son Portions of this note may be electronically transcribed. Please forward a copy of this H&P to the primary care physician. documented in this encounter [facility] 07-30-2024 Emergency department Note Associated Order(s): Splint Application EMERGENCY DEPARTMENT ENCOUNTER Pt Name: Gonzalo Deluca Birthdate 1955 Date of evaluation: 07/30/2024 ED Provider: Luis E Keating DO CHIEF COMPLAINT Chief Complaint Patient presents with Weight Loss Pt in with family for c/o failure to thrive, weight loss, and shortness of breath. Pt arrives on 3L oxygen, has history of COPD and states has been short of breath with exertion. Pt states she has been losing weight and now weighs 89lbs. States was sent by PCP Shortness of Breath HISTORY OF PRESENT ILLNESS (Location/Symptom, Timing/Onset, Context/Setting, Quality, Duration, Modifying Factors, Severity) Note limiting factors. I wore appropriate PPE for the entirety of this encounter. HPI Goznalo Deluca is a 68 y.o. who presents to the emergency department with chief complaint of unintentional weight loss, shortness of breath, and also left elbow pain. Patient has been dealing with COPD for quite some time but recently has gotten more short of breath and is not finding energy to perform much of activities of daily living. Has had very poor appetite normal eats only once a day. Son is also concerned she is not taking care of her with neuropathy because she did not have the oxygen tanks is back up and her concentrator is not working. She was noted be significantly hypoxic at PCP office for the scheduled appointment. Also noted to have lost even more weight since prior PCP appointment so PCP was concern for failure to thrive and sent to ED to ED for further evaluation. With regards to left elbow pain, she states she has fallen a couple of times and think she might of hurt it a month ago. Apparently x-rays were taken at that time but were negative for fracture. Nursing Notes were reviewed. Limitations to history: None Outside historians: Family : son REVIEW OF SYSTEMS Review of Systems Pertinent positives and negatives as per HPI PAST MEDICAL HISTORY Past Medical History: Diagnosis Date Abnormal stress test Acute exacerbation of chronic obstructive pulmonary disease (HCC) 04/12/2018 Allergic rhinitis Arthritis Asthma Bronchitis Cancer ([facility]/HCC) (HCC) skin Cervical cancer ([facility]) Chest pain COPD (chronic obstructive pulmonary disease) ([facility]) USE OXYGEN 3 L AT NIGHT DDD (degenerative disc disease), cervical Defect, retina, with detachment right DJD (degenerative joint disease), lumbar Emphysema lung ([facility]) Former smoker Hematuria SCHEDULED FOR THE PROCEDURE /SURGERY ON 02/11/2017 Hypokalemia Lung nodules Near syncope 09/19/2023 Osteoporosis Palpitations Pneumonia Recurrent major depression ([facility]) Sciatica Thoracic compression fracture ([facility]) Vitamin D deficiency SURGICAL HISTORY Past Surgical History: Procedure Laterality Date CYSTOSCOPY 01/12/2017 OFFICE PROCEDURE CYSTOSCOPY 02/11/2017 C&P bladder biopsy EYE SURGERY detached retina 1994 HYSTERECTOMY 11/06/2019 ABDOMINAL RADICAL HYSTERECTOMY WITH BSO AND PELVIC LYMPH; DR. ZIYAD FISH OTHER SURGICAL HISTORY Left 12/19/2019 Med Port POWER Regular Size OTHER SURGICAL HISTORY Left 11/07/2022 Percutaneous skeltal fixation femoral fracture TUBAL LIGATION 1992 CURRENT MEDICATIONS Previous Medications ALBUTEROL 108 (90 BASE) MCG/ACT INHALER Inhale 2 puffs every 4 hours as needed. ALENDRONATE (FOSAMAX) 70 MG TABLET Take 70 mg by mouth once a week. ASPIRIN 81 MG EC TABLET Take 81 mg by mouth. ATORVASTATIN (LIPITOR) 40 MG TABLET Take 1 tablet by mouth Nightly. BUPROPION XL (WELLBUTRIN XL) 150 MG 24 HR TABLET Take 150 mg by mouth in the morning. BUSPIRONE (BUSPAR) 15 MG TABLET Take 1 tablet (15 mg) by mouth 2 times daily. CALCITONIN (MIACALCIN) 200 UNIT/ML INJECTION Inject 0.25 mL (50 Units) into the shoulder, thigh, or buttocks daily. CALCIUM CARBONATE-CHOLECALCIFEROL (OYSTER SHELL) 250-3.125 MG-MCG TABLET Take 1 tablet by mouth. DICLOFENAC SODIUM (VOLTAREN) 1 % GEL Apply 4 g topically 2 times daily. FLUTICASONE (FLONASE) 50 MCG/ACT NASAL SPRAY 2 sprays in the morning. FLUTICASONE FUROATE-VILANTEROL (BREO ELLIPTA) 200-25 MCG/ACT AEROSOL POWDER Inhale 1 puff daily. GABAPENTIN (NEURONTIN) 600 MG TABLET Take 1 tablet by mouth daily. LIDOCAINE (LIDODERM) 5 % PATCH Apply 1 patch topically daily. Remove & discard patch within 12 hours or as directed by MD. MAGNESIUM OXIDE (MAG-OX) 400 MG TABLET 400 mg daily. MELATONIN 3 MG TABLET Take 1 tablet (3 mg) by mouth Nightly. METHOCARBAMOL (ROBAXIN) 500 MG TABLET Take 2 tablets (1,000 mg) by mouth every 8 hours as needed for muscle spasms for up to 10 days. MIRTAZAPINE (REMERON) 15 MG TABLET Take 1 tablet (15 mg) by mouth Nightly. MONTELUKAST (SINGULAIR) 10 MG TABLET Take 10 mg by mouth Nightly. NICOTINE (NICODERM, STEP 1) 21 MG/24HR PATCH Place 1 patch on the skin daily. Do not start before November 09, 2022. PAROXETINE (PAXIL) 20 MG TABLET Take 1 tablet (20 mg) by mouth every morning. TIOTROPIUM (SPIRIVA RESPIMAT) 2.5 MCG/ACT INHALER Inhale 2 puffs in the morning. ZINC 50 MG CAPSULE Take 50 mg by mouth. ALLERGIES Pollen extract FAMILY HISTORY Family History Problem Relation Name Age of Onset Colon cancer Neg Hx Ovarian cancer Neg Hx Cancer Mother breast- to liver Cancer Sister breast Cancer Father lung to brain No Known Problems Brother Uterine cancer Neg Hx SOCIAL HISTORY Social History Socioeconomic History Marital status: Tobacco Use Smoking status: Former Current packs/day: 0.00 Types: Cigarettes Quit date: 09/20/2011 Years since quittin.8 Smokeless tobacco: Never Tobacco comments: Quit smoking: pt states she quit 4-5 years ago Vaping Use Vaping status: Every Day Substances: Nicotine Devices: Refillable tank Substance and Sexual Activity Alcohol use: Not Currently Comment: Approx once a year Drug use: No Sexual activity: Defer Social Drivers of Health Financial Resource Strain: Low Risk (06/06/2024) Received from [facility] Overall Financial Resource Strain (CARDIA) Difficulty of Paying Living Expenses: Not very hard Food Insecurity: No Food Insecurity (06/06/2024) Received from [facility] Hunger Vital Sign Worried About Running Out of Food in the Last Year: Never true Ran Out of Food in the Last Year: Never true Transportation Needs: Unmet Transportation Needs (06/06/2024) Received from [facility] PRAPARE - Transportation Lack of Transportation (Medical): Yes Lack of Transportation (Non-Medical): No Physical Activity: Inactive (06/06/2024) Received from [facility] Exercise Vital Sign Days of Exercise per Week: 0 days Minutes of Exercise per Session: 0 min Stress: Stress Concern Present (06/06/2024) Received from [facility] [employer] - Occupational Stress Questionnaire Feeling of Stress : To some extent Social Connections: Unknown (06/06/2024) Received from [facility] Social Connection and Isolation Panel [NHANES] Frequency of Communication with Friends and Family: Twice a week Frequency of Social Gatherings with Friends and Family: Never Attends Judaism Services: Never Active Member of Clubs or Organizations: No Attends Club or Organization Meetings: Never Marital Status: Patient declined Intimate Partner Violence: Not At Risk (09/19/2023) Humiliation, Afraid, Rape, and Kick questionnaire Fear of Current or Ex-Partner: No Emotionally Abused: No Physically Abused: No Sexually Abused: No Housing Stability: Low Risk (09/19/2023) Housing Stability Vital Sign Unable to Pay for Housing in the Last Year: No Number of Times Moved in the Last Year: 1 Homeless in the Last Year: No PHYSICAL EXAM ED Triage Vitals [07/30/24 1636] Temp Heart Rate Resp BP 37.4 C (99.4 F) 95 20 102/70 SpO2 Temp Source Heart Rate Source Patient Position (!) 92 % Temporal Monitor -- BP Location FiO2 (%) -- -- Physical Exam Vitals and nursing note reviewed. Constitutional: Appearance: She is well-developed. Comments: Cachectic appearance HENT: Head: Normocephalic and atraumatic. Eyes: Conjunctiva/sclera: Conjunctivae normal. Cardiovascular: Rate and Rhythm: Normal rate and regular rhythm. Heart sounds: No murmur heard. Pulmonary: Effort: Pulmonary effort is normal. No respiratory distress. Breath sounds: Rhonchi present. No wheezing or rales. Abdominal: Palpations: Abdomen is soft. Tenderness: There is no abdominal tenderness. Musculoskeletal: General: No swelling. Cervical back: Neck supple. Comments: Mild soft tissue swelling to the left elbow. Small effusion to the left elbow joint. There is bony tenderness to palpation of the condylar area of the left distal humerus. Radial pulses are 2+ bilateral. Normal strength and sensation to the hand. Capillary fill is normal along the digits. Skin: General: Skin is warm and dry. Capillary Refill: Capillary refill takes less than 2 seconds. Neurological: Mental Status: She is alert and oriented to person, place, and time. Psychiatric: Mood and Affect: Mood normal. DIAGNOSTIC RESULTS RADIOLOGY (Per Emergency Physician): Interpretation per the Radiologist below, if available at the time of this note: XR chest 1 view Final Result No acute cardiopulmonary abnormality identified. Chronic appearing lung changes. Report Dictated on Electronically Signed By: Honorio Andino MD Electronically Signed Date/Time: 07/30/2024 5:42 PM EDT XR elbow 1 or 2 views left Final Result Acute, obliquely oriented, slightly displaced and impacted fracture through the supracondylar region of the left elbow with associated soft tissue swelling. Report Dictated on Electronically Signed By: Honorio Andino MD Electronically Signed Date/Time: 07/30/2024 5:46 PM EDT LABS: Labs Reviewed CBC WITH AUTO DIFFERENTIAL - Abnormal Result Value Auto WBC 8.9 RBC 3.58 (*) Hemoglobin 11.2 (*) Hematocrit 37.0 MCV 103.4 (*) MCH 31.3 MCHC 30.3 (*) RDW 13.4 Platelets 225 MPV 9.5 nRBC 0.0 Neutrophils Relative 80.4 Lymphocytes Relative 10.7 (*) Monocytes Relative 5.5 Eosinophils Relative 2.7 Basophils Relative 0.4 Immature Grans % 0.3 Neutrophils Absolute 7.2 Lymphocytes Absolute 1.0 Monocytes Absolute 0.5 Eosinophils Absolute 0.2 Basophils Absolute 0.0 Immature Grans Absolute 0.0 BASIC METABOLIC PANEL - Abnormal SODIUM 144 POTASSIUM 5.0 CHLORIDE 103 CARBON DIOXIDE 37 (*) UREA NITROGEN 16 CREATININE 0.63 GLUCOSE 80 (*) CALCIUM 8.8 ANION GAP 4 eGFR >90.0 HEPATIC FUNCTION PANEL - Abnormal BILIRUBIN, TOTAL 0.2 BILIRUBIN, DIRECT 0.1 ALKALINE PHOSPHATASE 97 AST (SGOT) 21 ALT 10 ALBUMIN 3.0 (*) TOTAL PROTEIN 6.5 FOLATE - Abnormal FOLATE RESULT 5.2 (*) COMPLETE URINALYSIS WITH REFLEX TO CULTURE - Abnormal Color, Urine Yellow Clarity, Urine Turbid (*) pH, Urine 7.5 Leukocytes, Urine 25 (*) Nitrite, Urine Negative Protein, Urine 10 (*) Glucose, Urine Normal Bilirubin, Urine Negative Ketones, Urine Negative Urobilinogen, Urine Normal Blood, Urine Negative RBC, Urine 0-2 WBC, Urine 3-5 Squamous Epithelial, Urine 0-2 Bacteria, Urine Negative Mucus, Urine Few Amorphous Crystals, Urine Many (*) Hyaline Casts, Urine 0-2 (*) SPECIFIC GRAVITY OF URINE (NUMERIC) 1.023 Narrative: A specimen with <=10 WBC is not consistent with inflammation. This specimen will not reflex to a urine culture. LIPASE - Normal LIPASE 18 MAGNESIUM - Normal MAGNESIUM 1.9 Narrative: Higher values can be expected in females during menses. VITAMIN B12 - Normal VITAMIN B12 639 All other labs were within normal range or not returned as of this dictation. EMERGENCY DEPARTMENT COURSE and DIFFERENTIAL DIAGNOSIS/MDM: Vitals: Vitals: 07/30/24 1637 07/30/24 1900 07/30/24 1930 07/30/241999 BP: 120/77 119/82 121/82 Pulse: 94 97 93 Resp: (!) 27 18 20 Temp: TempSrc: SpO2: 93% 97% 93% 93% Weight: 40.4 kg (89 lb) Height: 1.626 m (5' 4") Medications - No data to display The patient does show evidence of malnutrition. She has weight loss, low albumin and folate levels. Has been falling more. Also not caring for equipment very well. Currently does not have any oxygen supplies at home and her concentrator is not working. PCPs concerns were for overall adult failure to thrive and needing admission. I do believe she would benefit from admission for further orthopedic evaluation as well because she does have a supracondylar fracture of the left elbow. Splinted as detailed below. Neurovascularity is normal prior to and after the splint. PROCEDURES: Splint Application Performed by: Luis E Keating DO Authorized by: Luis E Keating DO Consent: Consent obtained: Verbal Consent given by: Patient Risks, benefits, and alternatives were discussed: yes Risks discussed: Pain, numbness and swelling Alternatives discussed: Delayed treatment and referral [place] protocol: Patient identity confirmed: Verbally with patient Pre-procedure details: Distal neurologic exam: Normal Distal perfusion: distal pulses strong and brisk capillary refill Procedure details: Location: Elbow Elbow location: L elbow Strapping: no Splint type: Sugar tong and long arm Supplies: Fiberglass Attestation: Splint applied and adjusted personally by me Post-procedure details: Distal neurologic exam: Normal Distal perfusion: distal pulses strong Procedure completion: Tolerated well, no immediate complications Post-procedure imaging: not applicable FINAL IMPRESSION 1. Adult failure to thrive 2. Severe protein-calorie malnutrition (HCC) 3. Closed supracondylar fracture of left humerus, initial encounter DISPOSITION Admit 07/30/2024 09:47:19 PM PATIENT REFERRED TO: No follow-up provider specified. DISCHARGE MEDICATIONS: New Prescriptions No medications on file (Comment: Please note this report has been produced using speech recognition software and may contain errors related to that system including errors in grammar, punctuation, and spelling, as well as words and phrases that may be inappropriate. If there are any questions or concerns please feel free to contact the dictating provider for clarification.) Luis E Keating DO (electronically signed) Emergency Medicine Provider Luis E Keating DO 07/30/24 215 documented in this encounter [facility] 07-30-2024 Physician Emergency department Note Associated Order(s): Splint Application EMERGENCY DEPARTMENT ENCOUNTER Pt Name: Gonzalo Deluca Birthdate 1955 Date of evaluation: 07/30/2024 ED Provider: Luis E Keating DO CHIEF COMPLAINT Chief Complaint Patient presents with Weight Loss Pt in with family for c/o failure to thrive, weight loss, and shortness of breath. Pt arrives on 3L oxygen, has history of COPD and states has been short of breath with exertion. Pt states she has been losing weight and now weighs 89lbs. States was sent by PCP Shortness of Breath HISTORY OF PRESENT ILLNESS (Location/Symptom, Timing/Onset, Context/Setting, Quality, Duration, Modifying Factors, Severity) Note limiting factors. I wore appropriate PPE for the entirety of this encounter. HPI Gonzalo Deluca is a 68 y.o. who presents to the emergency department with chief complaint of unintentional weight loss, shortness of breath, and also left elbow pain. Patient has been dealing with COPD for quite some time but recently has gotten more short of breath and is not finding energy to perform much of activities of daily living. Has had very poor appetite normal eats only once a day. Son is also concerned she is not taking care of her with neuropathy because she did not have the oxygen tanks is back up and her concentrator is not working. She was noted be significantly hypoxic at PCP office for the scheduled appointment. Also noted to have lost even more weight since prior PCP appointment so PCP was concern for failure to thrive and sent to ED to ED for further evaluation. With regards to left elbow pain, she states she has fallen a couple of times and think she might of hurt it a month ago. Apparently x-rays were taken at that time but were negative for fracture. Nursing Notes were reviewed. Limitations to history: None Outside historians: Family : son REVIEW OF SYSTEMS Review of Systems Pertinent positives and negatives as per HPI PAST MEDICAL HISTORY Past Medical History: Diagnosis Date Abnormal stress test Acute exacerbation of chronic obstructive pulmonary disease (HCC) 04/12/2018 Allergic rhinitis Arthritis Asthma Bronchitis Cancer ([facility]) (HCC) skin Cervical cancer (HCC) Chest pain COPD (chronic obstructive pulmonary disease) (HCC) USE OXYGEN 3 L AT NIGHT DDD (degenerative disc disease), cervical Defect, retina, with detachment right DJD (degenerative joint disease), lumbar Emphysema lung (HCC) Former smoker Hematuria SCHEDULED FOR THE PROCEDURE /SURGERY ON 02/11/2017 Hypokalemia Lung nodules Near syncope 09/19/2023 Osteoporosis Palpitations Pneumonia Recurrent major depression (HCC) Sciatica Thoracic compression fracture ([facility]) Vitamin D deficiency SURGICAL HISTORY Past Surgical History: Procedure Laterality Date CYSTOSCOPY 01/12/2017 OFFICE PROCEDURE CYSTOSCOPY 02/11/2017 C&P bladder biopsy EYE SURGERY detached retina 1994 HYSTERECTOMY 11/06/2019 ABDOMINAL RADICAL HYSTERECTOMY WITH BSO AND PELVIC LYMPH; DR. ZIYAD MENENDEZ [facility] OTHER SURGICAL HISTORY Left 12/19/2019 Med Port POWER Regular Size OTHER SURGICAL HISTORY Left 11/07/2022 Percutaneous skeltal fixation femoral fracture TUBAL LIGATION 1992 CURRENT MEDICATIONS Previous Medications ALBUTEROL 108 (90 BASE) MCG/ACT INHALER Inhale 2 puffs every 4 hours as needed. ALENDRONATE (FOSAMAX) 70 MG TABLET Take 70 mg by mouth once a week. ASPIRIN 81 MG EC TABLET Take 81 mg by mouth. ATORVASTATIN (LIPITOR) 40 MG TABLET Take 1 tablet by mouth Nightly. BUPROPION XL (WELLBUTRIN XL) 150 MG 24 HR TABLET Take 150 mg by mouth in the morning. BUSPIRONE (BUSPAR) 15 MG TABLET Take 1 tablet (15 mg) by mouth 2 times daily. CALCITONIN (MIACALCIN) 200 UNIT/ML INJECTION Inject 0.25 mL (50 Units) into the shoulder, thigh, or buttocks daily. CALCIUM CARBONATE-CHOLECALCIFEROL (OYSTER SHELL) 250-3.125 MG-MCG TABLET Take 1 tablet by mouth. DICLOFENAC SODIUM (VOLTAREN) 1 % GEL Apply 4 g topically 2 times daily. FLUTICASONE (FLONASE) 50 MCG/ACT NASAL SPRAY 2 sprays in the morning. FLUTICASONE FUROATE-VILANTEROL (BREO ELLIPTA) 200-25 MCG/ACT AEROSOL POWDER Inhale 1 puff daily. GABAPENTIN (NEURONTIN) 600 MG TABLET Take 1 tablet by mouth daily. LIDOCAINE (LIDODERM) 5 % PATCH Apply 1 patch topically daily. Remove & discard patch within 12 hours or as directed by MD. MAGNESIUM OXIDE (MAG-OX) 400 MG TABLET 400 mg daily. MELATONIN 3 MG TABLET Take 1 tablet (3 mg) by mouth Nightly. METHOCARBAMOL (ROBAXIN) 500 MG TABLET Take 2 tablets (1,000 mg) by mouth every 8 hours as needed for muscle spasms for up to 10 days. MIRTAZAPINE (REMERON) 15 MG TABLET Take 1 tablet (15 mg) by mouth Nightly. MONTELUKAST (SINGULAIR) 10 MG TABLET Take 10 mg by mouth Nightly. NICOTINE (NICODERM, STEP 1) 21 MG/24HR PATCH Place 1 patch on the skin daily. Do not start before November 09, 2022. PAROXETINE (PAXIL) 20 MG TABLET Take 1 tablet (20 mg) by mouth every morning. TIOTROPIUM (SPIRIVA RESPIMAT) 2.5 MCG/ACT INHALER Inhale 2 puffs in the morning. ZINC 50 MG CAPSULE Take 50 mg by mouth. ALLERGIES Pollen extract FAMILY HISTORY Family History Problem Relation Name Age of Onset Colon cancer Neg Hx Ovarian cancer Neg Hx Cancer Mother breast- to liver Cancer Sister breast Cancer Father lung to brain No Known Problems Brother Uterine cancer Neg Hx SOCIAL HISTORY Social History Socioeconomic History Marital status: Tobacco Use Smoking status: Former Current packs/day: 0.00 Types: Cigarettes Quit date: 09/20/2011 Years since quittin.8 Smokeless tobacco: Never Tobacco comments: Quit smoking: pt states she quit 4-5 years ago Vaping Use Vaping status: Every Day Substances: Nicotine Devices: Refillable tank Substance and Sexual Activity Alcohol use: Not Currently Comment: Approx once a year Drug use: No Sexual activity: Defer Social Drivers of Health Financial Resource Strain: Low Risk (06/06/2024) Received from [facility] Overall Financial Resource Strain (CARDIA) Difficulty of Paying Living Expenses: Not very hard Food Insecurity: No Food Insecurity (06/06/2024) Received from [facility] Hunger Vital Sign Worried About Running Out of Food in the Last Year: Never true Ran Out of Food in the Last Year: Never true Transportation Needs: Unmet Transportation Needs (06/06/2024) Received from [facility] PRAPARE - Transportation Lack of Transportation (Medical): Yes Lack of Transportation (Non-Medical): No Physical Activity: Inactive (06/06/2024) Received from [facility] Exercise Vital Sign Days of Exercise per Week: 0 days Minutes of Exercise per Session: 0 min Stress: Stress Concern Present (06/06/2024) Received from [facility] [employer] - Occupational Stress Questionnaire Feeling of Stress : To some extent Social Connections: Unknown (06/06/2024) Received from [facility] Social Connection and Isolation Panel [NHANES] Frequency of Communication with Friends and Family: Twice a week Frequency of Social Gatherings with Friends and Family: Never Attends Judaism Services: Never Active Member of Clubs or Organizations: No Attends Club or Organization Meetings: Never Marital Status: Patient declined Intimate Partner Violence: Not At Risk (09/19/2023) Humiliation, Afraid, Rape, and Kick questionnaire Fear of Current or Ex-Partner: No Emotionally Abused: No Physically Abused: No Sexually Abused: No Housing Stability: Low Risk (09/19/2023) Housing Stability Vital Sign Unable to Pay for Housing in the Last Year: No Number of Times Moved in the Last Year: 1 Homeless in the Last Year: No PHYSICAL EXAM ED Triage Vitals [07/30/24 1636] Temp Heart Rate Resp BP 37.4 C (99.4 F) 95 20 102/70 SpO2 Temp Source Heart Rate Source Patient Position (!) 92 % Temporal Monitor -- BP Location FiO2 (%) -- -- Physical Exam Vitals and nursing note reviewed. Constitutional: Appearance: She is well-developed. Comments: Cachectic appearance HENT: Head: Normocephalic and atraumatic. Eyes: Conjunctiva/sclera: Conjunctivae normal. Cardiovascular: Rate and Rhythm: Normal rate and regular rhythm. Heart sounds: No murmur heard. Pulmonary: Effort: Pulmonary effort is normal. No respiratory distress. Breath sounds: Rhonchi present. No wheezing or rales. Abdominal: Palpations: Abdomen is soft. Tenderness: There is no abdominal tenderness. Musculoskeletal: General: No swelling. Cervical back: Neck supple. Comments: Mild soft tissue swelling to the left elbow. Small effusion to the left elbow joint. There is bony tenderness to palpation of the condylar area of the left distal humerus. Radial pulses are 2+ bilateral. Normal strength and sensation to the hand. Capillary fill is normal along the digits. Skin: General: Skin is warm and dry. Capillary Refill: Capillary refill takes less than 2 seconds. Neurological: Mental Status: She is alert and oriented to person, place, and time. Psychiatric: Mood and Affect: Mood normal. DIAGNOSTIC RESULTS RADIOLOGY (Per Emergency Physician): Interpretation per the Radiologist below, if available at the time of this note: XR chest 1 view Final Result No acute cardiopulmonary abnormality identified. Chronic appearing lung changes. Report Dictated on Electronically Signed By: Honorio Andino MD Electronically Signed Date/Time: 07/30/2024 5:42 PM EDT XR elbow 1 or 2 views left Final Result Acute, obliquely oriented, slightly displaced and impacted fracture through the supracondylar region of the left elbow with associated soft tissue swelling. Report Dictated on Electronically Signed By: Honorio Andino MD Electronically Signed Date/Time: 07/30/2024 5:46 PM EDT LABS: Labs Reviewed CBC WITH AUTO DIFFERENTIAL - Abnormal Result Value Auto WBC 8.9 RBC 3.58 (*) Hemoglobin 11.2 (*) Hematocrit 37.0 MCV 103.4 (*) MCH 31.3 MCHC 30.3 (*) RDW 13.4 Platelets 225 MPV 9.5 nRBC 0.0 Neutrophils Relative 80.4 Lymphocytes Relative 10.7 (*) Monocytes Relative 5.5 Eosinophils Relative 2.7 Basophils Relative 0.4 Immature Grans % 0.3 Neutrophils Absolute 7.2 Lymphocytes Absolute 1.0 Monocytes Absolute 0.5 Eosinophils Absolute 0.2 Basophils Absolute 0.0 Immature Grans Absolute 0.0 BASIC METABOLIC PANEL - Abnormal SODIUM 144 POTASSIUM 5.0 CHLORIDE 103 CARBON DIOXIDE 37 (*) UREA NITROGEN 16 CREATININE 0.63 GLUCOSE 80 (*) CALCIUM 8.8 ANION GAP 4 eGFR >90.0 HEPATIC FUNCTION PANEL - Abnormal BILIRUBIN, TOTAL 0.2 BILIRUBIN, DIRECT 0.1 ALKALINE PHOSPHATASE 97 AST (SGOT) 21 ALT 10 ALBUMIN 3.0 (*) TOTAL PROTEIN 6.5 FOLATE - Abnormal FOLATE RESULT 5.2 (*) COMPLETE URINALYSIS WITH REFLEX TO CULTURE - Abnormal Color, Urine Yellow Clarity, Urine Turbid (*) pH, Urine 7.5 Leukocytes, Urine 25 (*) Nitrite, Urine Negative Protein, Urine 10 (*) Glucose, Urine Normal Bilirubin, Urine Negative Ketones, Urine Negative Urobilinogen, Urine Normal Blood, Urine Negative RBC, Urine 0-2 WBC, Urine 3-5 Squamous Epithelial, Urine 0-2 Bacteria, Urine Negative Mucus, Urine Few Amorphous Crystals, Urine Many (*) Hyaline Casts, Urine 0-2 (*) SPECIFIC GRAVITY OF URINE (NUMERIC) 1.023 Narrative: A specimen with <=10 WBC is not consistent with inflammation. This specimen will not reflex to a urine culture. LIPASE - Normal LIPASE 18 MAGNESIUM - Normal MAGNESIUM 1.9 Narrative: Higher values can be expected in females during menses. VITAMIN B12 - Normal VITAMIN B12 639 All other labs were within normal range or not returned as of this dictation. EMERGENCY DEPARTMENT COURSE and DIFFERENTIAL DIAGNOSIS/MDM: Vitals: Vitals: 07/30/24 1637 07/30/24 1900 07/30/24 1930 07/30/241999 BP: 120/77 119/82 121/82 Pulse: 94 97 93 Resp: (!) 27 18 20 Temp: TempSrc: SpO2: 93% 97% 93% 93% Weight: 40.4 kg (89 lb) Height: 1.626 m (5' 4") Medications - No data to display The patient does show evidence of malnutrition. She has weight loss, low albumin and folate levels. Has been falling more. Also not caring for equipment very well. Currently does not have any oxygen supplies at home and her concentrator is not working. PCPs concerns were for overall adult failure to thrive and needing admission. I do believe she would benefit from admission for further orthopedic evaluation as well because she does have a supracondylar fracture of the left elbow. Splinted as detailed below. Neurovascularity is normal prior to and after the splint. PROCEDURES: Splint Application Performed by: Luis E Keating DO Authorized by: Luis E Keating DO Consent: Consent obtained: Verbal Consent given by: Patient Risks, benefits, and alternatives were discussed: yes Risks discussed: Pain, numbness and swelling Alternatives discussed: Delayed treatment and referral [place] protocol: Patient identity confirmed: Verbally with patient Pre-procedure details: Distal neurologic exam: Normal Distal perfusion: distal pulses strong and brisk capillary refill Procedure details: Location: Elbow Elbow location: L elbow Strapping: no Splint type: Sugar tong and long arm Supplies: Fiberglass Attestation: Splint applied and adjusted personally by me Post-procedure details: Distal neurologic exam: Normal Distal perfusion: distal pulses strong Procedure completion: Tolerated well, no immediate complications Post-procedure imaging: not applicable FINAL IMPRESSION 1. Adult failure to thrive 2. Severe protein-calorie malnutrition (HCC) 3. Closed supracondylar fracture of left humerus, initial encounter DISPOSITION Admit 07/30/2024 09:47:19 PM PATIENT REFERRED TO: No follow-up provider specified. DISCHARGE MEDICATIONS: New Prescriptions No medications on file (Comment: Please note this report has been produced using speech recognition software and may contain errors related to that system including errors in grammar, punctuation, and spelling, as well as words and phrases that may be inappropriate. If there are any questions or concerns please feel free to contact the dictating provider for clarification.) Luis E Keating DO (electronically signed) Emergency Medicine Provider Luis E Keating DO 07/30/242152 [facility] 07-30-2024 Note HNO ID: [id number] Author: HERMINIA CASE MD Service: ? Author Type: Physician Type: Progress Notes Filed: 07/30/2024 16:33 Note Text: 07/30/2024 Recording using [employer] software for draft documentation of the visit was discussed with the patient/authorized financial sales representative; all questions welcomed and answered. Patient/authorized financial sales representative agreed to proceed HPI: Gonzalo is a 68-year-old female with a history of COPD, presenting with dyspnea and significant weight loss, accompanied by her son who is providing additional history. Dyspnea: - Chronic dyspnea, no acute worsening today. - Currently using a portable oxygen concentrator ; home oxygen set at 3.5 L/min. - Home SpO2 levels typically range from 90-93% but satting 79-81% here on oxygen. - Reports constant cough and production of "nasty looking crap." - Denies fever. - History of vaping. Weight Loss: - Significant weight loss since December 2022, with current weight at 89 lbs, down from 137 lbs. - Reports decreased appetite, often forcing herself to eat. - Consumes one meal per day, supplemented with 2-3 nutritional shakes (260 calories each) occasionally. - Experiences dyspnea while eating, leading to reduced intake. - Son reports she rarely leaves her room and often cancels appointments requiring travel. Depression: - History of depression, currently on multiple medications. - Denies feeling depressed but acknowledges difficulty breathing while eating. No other concerns or complaints today. PAST MEDICAL HISTORY Diagnosis Date COPD (chronic obstructive pulmonary disease) (HCC) DDD (degenerative disc disease), lumbar Encounter for chronic pain management Major depression, recurrent, chronic (HCC) Osteoporosis Pulmonary nodule, right 2015 PAST SURGICAL HISTORY Procedure Laterality Date CYSTOSCOPY 01/12/2017 CYSTOSCOPY 02/11/2017 EYE SURGERY HX Right 1994 detached retina HIP SURGERY HX Left 10/2022 ORIF for fracture TUBAL LIGATION HX 1992 FAMILY HISTORY Problem Relation Age of Onset Breast Cancer Mother 65 other (lung cancer) Father Breast Cancer Sister 62 No Known Problems Brother other (negative genetic testing for breast CA) Daughter Social History Tobacco Use Smoking status: Former Current packs/day: 0.00 Average packs/day: 1.5 packs/day for 69.0 years (103.5 ttl pk-yrs) Types: Cigarettes Start date: 1971 Quit date: 2018 Years since quittin.3 Smokeless tobacco: Never Tobacco comments: vaping intermittently Vaping Use Vaping status: Never Used Substance Use Topics Alcohol use: No Drug use: No Current Outpatient Medications on File Prior to Visit Medication Sig oxyCODONE-acetaminophen (PERCOCET) 5-325 mg tablet Take 1 tablet by mouth every 6 hours as needed for pain for up to 30 days. buPROPion XL (WELLBUTRIN XL) 150 mg 24 hr tablet TAKE 1 TABLET BY MOUTH EVERY DAY cyclobenzaprine (FLEXERIL) 5 mg tablet Take 1 tablet by mouth every 12 hours. mirtazapine (REMERON) 30 mg tablet Take 1 tablet by mouth daily at bedtime. fluticasone-salmeterol (ADVAIR, WIXELA) 250-50 mcg/dose inhaler Inhale 1 Puff as instructed two times a day. RINSE AND GARGLE MOUTH WITH WATER AFTER EACH USE. PARoxetine (PAXIL) 40 mg tablet TAKE 1 TABLET BY MOUTH EVERY DAY QUEtiapine (SEROQUEL) 100 mg tablet Take 2 tablets by mouth at bedtime as needed. alendronate (FOSAMAX) 70 mg tablet TAKE 1 TABLET BY MOUTH ONE TIME A WEEK. tiotropium bromide (SPIRIVA RESPIMAT) 2.5 mcg/actuation inhaler INHALE 2 PUFFS BY MOUTH ONCE DAILY DIRECTED fluticasone (FLONASE) 50 mcg/actuation nasal spray spray 2 sprays into each nostril every day montelukast (SINGULAIR) 10 mg tablet Take 10 mg by mouth daily at bedtime. Nebulizers Use as directed. albuterol (PROVENTIL) 2.5 mg /3 mL (0.083 %) nebulizer solution INHALE 3 ML VIA NEBULIZER EVERY 4 HOURS NEEDED FOR WHEEZE OR FOR SHORTNESS OF BREATH predniSONE (DELTASONE) 20 mg tablet 2 tabs daily x 4 days, then 1 tab daily x 4 days, then 1/2 tab daily x 4 days (Patient not taking: Reported on 07/30/2024) albuterol HFA (PROVENTIL HFA, VENTOLIN HFA) 90 mcg/actuation inhaler Inhale 2 Puffs as instructed every 4 hours as needed for wheezing/shortness of breath. atorvastatin (LIPITOR) 40 mg tablet TAKE 1 TABLET BY MOUTH EVERY DAY AT NIGHT (Patient not taking: Reported on 07/30/2024) No current facility-administered medications on file prior to visit. Review of Systems: Constitutional: (+) weakness, (+) weight loss, (-) fever Respiratory: (+) dyspnea, (+) cough, (+) phlegm Gastrointestinal: (+) decreased appetite Musculoskeletal: (+) elbow pain Psychiatric: (+) depression, (+) anxiety Physical Exam: BP 120/78 Pulse 106 Temp 36.9 ?C (98.4 ?F) (Temporal) Ht 164.1 cm (5' 4.61") Wt 40.6 kg (89 lb 8.1 oz) SpO2 (!) 82% BMI 15.08 kg/m? GENERAL: NAD, alert and oriented, cachectic. SKIN: Unremarkable, no rash or skin lesions. HEAD (more content not included)... [facility] 07-30-2024 History of Presen t illness Narrative 07/30/2024 Recording using Miroi software for draft documentation of the visit was discussed with the patient/authorized financial sales representative; all questions welcomed and answered. Patient/authorized financial sales representative agreed to proceed HPI: Gonzalo is a 68-year-old female with a history of COPD, presenting with dyspnea and significant weight loss, accompanied by her son who is providing additional history. Dyspnea: - Chronic dyspnea, no acute worsening today. - Currently using a portable oxygen concentrator ; home oxygen set at 3.5 L/min. - Home SpO2 levels typically range from 90-93% but satting 79-81% here on oxygen. - Reports constant cough and production of "nasty looking crap." - Denies fever. - History of vaping. Weight Loss: - Significant weight loss since December 2022, with current weight at 89 lbs, down from 137 lbs. - Reports decreased appetite, often forcing herself to eat. - Consumes one meal per day, supplemented with 2-3 nutritional shakes (260 calories each) occasionally. - Experiences dyspnea while eating, leading to reduced intake. - Son reports she rarely leaves her room and often cancels appointments requiring travel. Depression: - History of depression, currently on multiple medications. - Denies feeling depressed but acknowledges difficulty breathing while eating. No other concerns or complaints today. PAST MEDICAL HISTORY Diagnosis Date COPD (chronic obstructive pulmonary disease) (HCC) DDD (degenerative disc disease), lumbar Encounter for chronic pain management Major depression, recurrent, chronic (HCC) Osteoporosis Pulmonary nodule, right 2015 PAST SURGICAL HISTORY Procedure Laterality Date CYSTOSCOPY 01/12/2017 CYSTOSCOPY 02/11/2017 EYE SURGERY HX Right 1994 detached retina HIP SURGERY HX Left 10/2022 ORIF for fracture TUBAL LIGATION HX 1992 FAMILY HISTORY Problem Relation Age of Onset Breast Cancer Mother 65 other (lung cancer) Father Breast Cancer Sister 62 No Known Problems Brother other (negative genetic testing for breast CA) Daughter Social History Tobacco Use Smoking status: Former Current packs/day: 0.00 Average packs/day: 1.5 packs/day for 69.0 years (103.5 ttl pk-yrs) Types: Cigarettes Start date: 1971 Quit date: 2018 Years since quittin.3 Smokeless tobacco: Never Tobacco comments: vaping intermittently Vaping Use Vaping status: Never Used Substance Use Topics Alcohol use: No Drug use: No Current Outpatient Medications on File Prior to Visit Medication Sig oxyCODONE-acetaminophen (PERCOCET) 5-325 mg tablet Take 1 tablet by mouth every 6 hours as needed for pain for up to 30 days. buPROPion XL (WELLBUTRIN XL) 150 mg 24 hr tablet TAKE 1 TABLET BY MOUTH EVERY DAY cyclobenzaprine (FLEXERIL) 5 mg tablet Take 1 tablet by mouth every 12 hours. mirtazapine (REMERON) 30 mg tablet Take 1 tablet by mouth daily at bedtime. fluticasone-salmeterol (ADVAIR, WIXELA) 250-50 mcg/dose inhaler Inhale 1 Puff as instructed two times a day. RINSE AND GARGLE MOUTH WITH WATER AFTER EACH USE. PARoxetine (PAXIL) 40 mg tablet TAKE 1 TABLET BY MOUTH EVERY DAY QUEtiapine (SEROQUEL) 100 mg tablet Take 2 tablets by mouth at bedtime as needed. alendronate (FOSAMAX) 70 mg tablet TAKE 1 TABLET BY MOUTH ONE TIME A WEEK. tiotropium bromide (SPIRIVA RESPIMAT) 2.5 mcg/actuation inhaler INHALE 2 PUFFS BY MOUTH ONCE DAILY DIRECTED fluticasone (FLONASE) 50 mcg/actuation nasal spray spray 2 sprays into each nostril every day montelukast (SINGULAIR) 10 mg tablet Take 10 mg by mouth daily at bedtime. Nebulizers Use as directed. albuterol (PROVENTIL) 2.5 mg /3 mL (0.083 %) nebulizer solution INHALE 3 ML VIA NEBULIZER EVERY 4 HOURS NEEDED FOR WHEEZE OR FOR SHORTNESS OF BREATH predniSONE (DELTASONE) 20 mg tablet 2 tabs daily x 4 days, then 1 tab daily x 4 days, then 1/2 tab daily x 4 days (Patient not taking: Reported on 07/30/2024) albuterol HFA (PROVENTIL HFA, VENTOLIN HFA) 90 mcg/actuation inhaler Inhale 2 Puffs as instructed every 4 hours as needed for wheezing/shortness of breath. atorvastatin (LIPITOR) 40 mg tablet TAKE 1 TABLET BY MOUTH EVERY DAY AT NIGHT (Patient not taking: Reported on 07/30/2024) No current facility-administered medications on file prior to visit. Review of Systems: Constitutional: (+) weakness, (+) weight loss, (-) fever Respiratory: (+) dyspnea, (+) cough, (+) phlegm Gastrointestinal: (+) decreased appetite Musculoskeletal: (+) elbow pain Psychiatric: (+) depression, (+) anxiety Physical Exam: BP 120/78 Pulse 106 Temp 36.9 C (98.4 F) (Temporal) Ht 164.1 cm (5' 4.61") Wt 40.6 kg (89 lb 8.1 oz) SpO2 (!) 82% BMI 15.08 kg/m GENERAL: NAD, alert and oriented, cachectic. SKIN: Unremarkable, no rash or skin lesions. HEAD: Normocephalic. LUNGS: Wheezing noted bilaterally. HEART: Regular rate and rhythm, no murmurs. No ectopy. EXTREMITIES: Normal, no deformities, no skin discoloration, no edema. NEURO: Awake, alert and oriented x3, gait not assessed, in wheelchair. Diagnostics reviewed: Assessment/Plan: 1. Centrilobular emphysema (HCC) (J43.2) 2. Chronic respiratory failure with hypoxia (HCC) (J96.11) - Chronic dyspnea with SpO2 at 82% on current portable oxygen concentrator setting. - Home oxygen therapy at 3.5 L/min achieves SpO2 of 90-93%. - Wheezing noted on auscultation. - Discussed risks of inadequate oxygenation, including potential for cardiac events. - Patient to go to [facility] for stabilization of oxygen levels and further evaluation, hope to admit for failure to thrive, likely needs SNF. 3. Adult failure to thrive (R62.7) 4. Severe protein-calorie malnutrition (HCC) (E43) - Significant weight loss from 137 lbs in December 2022 to 89 lbs currently. - Poor oral intake, eating once daily with occasional nutritional shakes (260 kcal each, 2-3 per day). - Discussed potential for hospitalization to optimize nutrition and oxygenation. - Consideration for admission to a [facility] facility for nutritional support and rehabilitation. - Patient and family agree to ER visit for evaluation of failure to thrive and potential admission. Orders placed during this encounter: No orders found for this visit on 07/30/24. The patient indicates understanding of these issues and agrees with the plan of care. Red flag symptoms reviewed if needed. Herminia Case MD documented in this encounter [facility] 07-23-2024 Telephone encounter Note Prescription Refill Information The patient has been identified by name and date of : Yes Caregiver verified no other encounters exist for this prescription request: Yes Caregiver confirmed with patient/requestor that no other refills are due, in the near future, with this provider at this time: Yes The last office visit in the department: 06/06/24 Does the patient have a future office visit with this provider/department: Yes Requested Prescriptions Pending Prescriptions Disp Refills oxyCODONE-acetaminophen (PERCOCET) 5-325 mg tablet 120 tablet 0 Sig: Take 1 tablet by mouth every 6 hours as needed for pain for up to 30 days. Whit Shay LPN July 23, 2024 11:22 AM [facility] 07-23-2024 Miscellaneous Notes Prescription Refill Information The patient has been identified by name and date of : Yes Caregiver verified no other encounters exist for this prescription request: Yes Caregiver confirmed with patient/requestor that no other refills are due, in the near future, with this provider at this time: Yes The last office visit in the department: 06/06/24 Does the patient have a future office visit with this provider/department: Yes Requested Prescriptions Pending Prescriptions Disp Refills oxyCODONE-acetaminophen (PERCOCET) 5-325 mg tablet 120 tablet 0 Sig: Take 1 tablet by mouth every 6 hours as needed for pain for up to 30 days. Whit Shay LPN July 23, 2024 11:22 AM documented in this encounter [facility] 07-02-2024 Telephone encounter Note Request completed and faxed. [facility] 07-02-2024 Miscellaneous Notes Request completed and faxed. Orders signed and in outbox. Please fax. Thank you, Leona Castañeda APRN.AN/SSN 2 4 OPERATOR Type of letter/form/fax request - Assisted living orders Form received from [facility] on 06/29/24 floor and placed on desk () for completion. Completed form needs to be faxed to [phone]. Route to [place] when form completed for processing documented in this encounter [facility] 07-02-2024 Telephone encounter Note Orders signed and in outbox. Please fax. Thank you, Leona Castañeda APRN.AN/SSN 2 4 OPERATOR [facility] Work Phone: 06-30-2024 Telephone encounter Note Type of letter/form/fax request - Assisted living orders Form received from [facility] on 06/29/24 floor and placed on MD desk () for completion. Completed form needs to be faxed to [phone]. Route to [place] when form completed for processing [facility] 06-26-2024 Telephone encounter Note Prescription Refill Information The patient has been identified by name and date of : Yes Caregiver verified no other encounters exist for this prescription request: Yes Caregiver confirmed with patient/requestor that no other refills are due, in the near future, with this provider at this time: Yes The last office visit in the department: 06/06/24 Does the patient have a future office visit with this provider/department: Yes Requested Prescriptions Pending Prescriptions Disp Refills cyclobenzaprine (FLEXERIL) 5 mg tablet 30 tablet 2 Sig: Take 1 tablet by mouth every 12 hours. Whit Shay LPN June 26, 2024 9:32 AM [facility] 06-26-2024 Miscellaneous Notes Prescription Refill Information The patient has been identified by name and date of : Yes Caregiver verified no other encounters exist for this prescription request: Yes Caregiver confirmed with patient/requestor that no other refills are due, in the near future, with this provider at this time: Yes The last office visit in the department: 06/06/24 Does the patient have a future office visit with this provider/department: Yes Requested Prescriptions Pending Prescriptions Disp Refills cyclobenzaprine (FLEXERIL) 5 mg tablet 30 tablet 2 Sig: Take 1 tablet by mouth every 12 hours. Whit Shay LPN June 26, 2024 9:32 AM documented in this encounter [facility] 06-26-2024 Telephone encounter Note Prescription Refill Information The patient has been identified by name and date of : Yes Caregiver verified no other encounters exist for this prescription request: Yes Caregiver confirmed with patient/requestor that no other refills are due, in the near future, with this provider at this time: Yes The last office visit in the department: 05/27/24 Does the patient have a future office visit with this provider/department: Yes Last Tox/Pain: 05/02/23 Requested Prescriptions Pending Prescriptions Disp Refills oxyCODONE-acetaminophen (PERCOCET) 5-325 mg tablet 120 tablet 0 Sig: Take 1 tablet by mouth every 6 hours as needed for pain for up to 30 days. Christina Patel MA June 26, 2024 8:38 AM [facility] 06-26-2024 Miscellaneous Notes Prescription Refill Information The patient has been identified by name and date of : Yes Caregiver verified no other encounters exist for this prescription request: Yes Caregiver confirmed with patient/requestor that no other refills are due, in the near future, with this provider at this time: Yes The last office visit in the department: 05/27/24 Does the patient have a future office visit with this provider/department: Yes Last Tox/Pain: 05/02/23 Requested Prescriptions Pending Prescriptions Disp Refills oxyCODONE-acetaminophen (PERCOCET) 5-325 mg tablet 120 tablet 0 Sig: Take 1 tablet by mouth every 6 hours as needed for pain for up to 30 days. Christina Patel MA June 26, 2024 8:38 AM documented in this encounter [facility] 06-07-2024 Telephone encounter Note Herminia Case MD Thank you for the referral. Our first available date for a therapy start of care is 06/11/24. Please let us know if this is acceptable for you and the patient. Thank you , Maddi Valero LPN June 07, 2024 5:05 PM [facility] Work Phone: 06-07-2024 Miscellaneous Notes Herminia Case MD Thank you for the referral. Our first available date for a therapy start of care is 06/11/24. Please let us know if this is acceptable for you and the patient. Thank you , Maddi Valero LPN June 07, 2024 5:05 PM documented in this encounter [facility] 06-06-2024 Telephone encounter Note Herminia Case MD Thank you for the referral for Gonzalo Deluca to receive home care services through [facility]. At this time, the office note is not yet completed for us to review for CMS guidelines. Please let us know once you have an opportunity to complete it so that we can review for CMS. Also, per CMS guidelines your office note needs to include a discussion of HHC with the following: - why is HHC needed - why is the patient homebound - what is the diagnosis that [facility] is seeing the patient for. Thank you, Erna Diaz LPN [facility] Work Phone: 06-06-2024 Miscellaneous Notes Herminia Case MD Thank you for the referral for Gonzalo Deluca to receive home care services through [facility]. At this time, the office note is not yet completed for us to review for CMS guidelines. Please let us know once you have an opportunity to complete it so that we can review for CMS. Also, per CMS guidelines your office note needs to include a discussion of HHC with the following: - why is HHC needed - why is the patient homebound - what is the diagnosis that [facility] is seeing the patient for. Thank you, Erna Diaz LPN documented in this encounter [facility] 06-06-2024 Note HNO ID: [id number] Author: HERMINIA CASE MD Service: ? Author Type: Physician Type: Progress Notes Filed: 06/07/2024 16:23 Note Text: VIRTUAL VISIT PROGRESS NOTE This is a virtual visit using [employer] Video Visit. It required patient-provider interaction for the medical decision making as documented below. I have communicated my name and active licensure. The patient's identity and physical location were verified at the time of this visit. Either the patient or their legal financial sales representative has been informed of the risks and benefits of -- and alternatives to -- treatment through a remote evaluation and consents to proceed with the evaluation remotely. Gonzalo Deluca is a 68 year old female seen for discuss living situation. Daughter worried about patient Falls frequently, losing weight. Fell a few weeks ago while walking to the bathroom, injured her arm, bruised face. No fractures in the ER. Patient feels like its mostly from tripping on her oxygen. Feels dizzy at times, not really orthostatic, no vertigo. Losing weight, thinks she's down to 100 lbs. Only eating once a day. Likes sweets, not much nutritious food. Appetite is low. Increased her mirtazapine to twice a day a few days ago. She doesn't really leave her bedroom. Copd on oxygen - good about her inhalers, meds. Oxygen is up to 4L continuous. Has anxiety about leaving the house, worries her oxygen will run out or it will get unhooked HISTORY REVIEWED (electronic chart updated): PAST MEDICAL HISTORY Diagnosis Date COPD (chronic obstructive pulmonary disease) (HCC) DDD (degenerative disc disease), lumbar Encounter for chronic pain management Major depression, recurrent, chronic (HCC) Osteoporosis Pulmonary nodule, right 2015 PAST SURGICAL HISTORY Procedure Laterality Date CYSTOSCOPY 01/12/2017 CYSTOSCOPY 02/11/2017 EYE SURGERY HX Right 1994 detached retina HIP SURGERY HX Left 10/2022 ORIF for fracture TUBAL LIGATION HX 1992 FAMILY HISTORY Problem Relation Age of Onset Breast Cancer Mother 65 other (lung cancer) Father Breast Cancer Sister 62 No Known Problems Brother other (negative genetic testing for breast CA) Daughter Social History Tobacco Use Smoking status: Former Current packs/day: 0.00 Average packs/day: 1.5 packs/day for 69.0 years (103.5 ttl pk-yrs) Types: Cigarettes Start date: 1971 Quit date: 2017 Years since quittin.2 Smokeless tobacco: Never Tobacco comments: vaping intermittently Vaping Use Vaping status: Never Used Substance Use Topics Alcohol use: No Drug use: No Current Outpatient Medications Medication Sig mirtazapine (REMERON) 15 mg tablet Take 1 tablet by mouth daily at bedtime. oxyCODONE-acetaminophen (PERCOCET) 5-325 mg tablet Take 1 tablet by mouth every 6 hours as needed for pain for up to 30 days. predniSONE (DELTASONE) 20 mg tablet 2 tabs daily x 4 days, then 1 tab daily x 4 days, then 1/2 tab daily x 4 days fluticasone-salmeterol (ADVAIR, WIXELA) 250-50 mcg/dose inhaler Inhale 1 Puff as instructed two times a day. RINSE AND GARGLE MOUTH WITH WATER AFTER EACH USE. PARoxetine (PAXIL) 40 mg tablet TAKE 1 TABLET BY MOUTH EVERY DAY cyclobenzaprine (FLEXERIL) 5 mg tablet TAKE 1 TABLET BY MOUTH EVERY 12 HOURS QUEtiapine (SEROQUEL) 100 mg tablet Take 2 tablets by mouth at bedtime as needed. alendronate (FOSAMAX) 70 mg tablet TAKE 1 TABLET BY MOUTH ONE TIME A WEEK. albuterol HFA (PROVENTIL HFA, VENTOLIN HFA) 90 mcg/actuation inhaler Inhale 2 Puffs as instructed every 4 hours as needed for wheezing/shortness of breath. tiotropium bromide (SPIRIVA RESPIMAT) 2.5 mcg/actuation inhaler INHALE 2 PUFFS BY MOUTH ONCE DAILY DIRECTED fluticasone (FLONASE) 50 mcg/actuation nasal spray spray 2 sprays into each nostril every day buPROPion XL (WELLBUTRIN XL) 150 mg 24 hr tablet take 1 tablet by mouth every day montelukast (SINGULAIR) 10 mg tablet Take 10 mg by mouth daily at bedtime. atorvastatin (LIPITOR) 40 mg tablet TAKE 1 TABLET BY MOUTH EVERY DAY AT NIGHT Nebulizers Use as directed. albuterol (PROVENTIL) 2.5 mg /3 mL (0.083 %) nebulizer solution INHALE 3 ML VIA NEBULIZER EVERY 4 HOURS NEEDED FOR WHEEZE OR FOR SHORTNESS OF BREATH No current facility-administered medications for this visit. ALLERGIES Allergen Reactions Seasonal Allergies Intolerance REVIEW OF SYSTEMS: GENERAL: feeling well without fatigue, weight loss noted RESPIRATORY: chronic lung disease under good control with current medication CARDIOVASCULAR: no chest pain, no palpitations PHYSICAL EXAMINATION: VIDEO EXAM: (if completed, performed via video enabled technology) GENERAL: alert and appropriate, in no distress, happy, smiling, interactive, and thin SKIN: no rash noted RESPIRATORY: breathing non-labored ASSESSMENT: (J43.1) Panlobular emphysema (HCC) (primary encounter diagnosis) (F33.1) Moderate episode of recurrent major depressive di (more content not included)... [facility] 06-06-2024 History of Presen t illness Narrative VIRTUAL VISIT PROGRESS NOTE This is a virtual visit using MyChart Zoom Video Visit. It required patient-provider interaction for the medical decision making as documented below. I have communicated my name and active licensure. The patient's identity and physical location were verified at the time of this visit. Either the patient or their legal financial sales representative has been informed of the risks and benefits of -- and alternatives to -- treatment through a remote evaluation and consents to proceed with the evaluation remotely. Gonzalo Deluca is a 68 year old female seen for discuss living situation. Daughter worried about patient Falls frequently, losing weight. Fell a few weeks ago while walking to the bathroom, injured her arm, bruised face. No fractures in the ER. Patient feels like its mostly from tripping on her oxygen. Feels dizzy at times, not really orthostatic, no vertigo. Losing weight, thinks she's down to 100 lbs. Only eating once a day. Likes sweets, not much nutritious food. Appetite is low. Increased her mirtazapine to twice a day a few days ago. She doesn't really leave her bedroom. Copd on oxygen - good about her inhalers, meds. Oxygen is up to 4L continuous. Has anxiety about leaving the house, worries her oxygen will run out or it will get unhooked HISTORY REVIEWED (electronic chart updated): PAST MEDICAL HISTORY Diagnosis Date COPD (chronic obstructive pulmonary disease) (HCC) DDD (degenerative disc disease), lumbar Encounter for chronic pain management Major depression, recurrent, chronic (HCC) Osteoporosis Pulmonary nodule, right 2015 PAST SURGICAL HISTORY Procedure Laterality Date CYSTOSCOPY 01/12/2017 CYSTOSCOPY 02/11/2017 EYE SURGERY HX Right 1994 detached retina HIP SURGERY HX Left 10/2022 ORIF for fracture TUBAL LIGATION HX 1992 FAMILY HISTORY Problem Relation Age of Onset Breast Cancer Mother 65 other (lung cancer) Father Breast Cancer Sister 62 No Known Problems Brother other (negative genetic testing for breast CA) Daughter Social History Tobacco Use Smoking status: Former Current packs/day: 0.00 Average packs/day: 1.5 packs/day for 69.0 years (103.5 ttl pk-yrs) Types: Cigarettes Start date: 1971 Quit date: 2018 Years since quittin.2 Smokeless tobacco: Never Tobacco comments: vaping intermittently Vaping Use Vaping status: Never Used Substance Use Topics Alcohol use: No Drug use: No Current Outpatient Medications Medication Sig mirtazapine (REMERON) 15 mg tablet Take 1 tablet by mouth daily at bedtime. oxyCODONE-acetaminophen (PERCOCET) 5-325 mg tablet Take 1 tablet by mouth every 6 hours as needed for pain for up to 30 days. predniSONE (DELTASONE) 20 mg tablet 2 tabs daily x 4 days, then 1 tab daily x 4 days, then 1/2 tab daily x 4 days fluticasone-salmeterol (ADVAIR, WIXELA) 250-50 mcg/dose inhaler Inhale 1 Puff as instructed two times a day. RINSE AND GARGLE MOUTH WITH WATER AFTER EACH USE. PARoxetine (PAXIL) 40 mg tablet TAKE 1 TABLET BY MOUTH EVERY DAY cyclobenzaprine (FLEXERIL) 5 mg tablet TAKE 1 TABLET BY MOUTH EVERY 12 HOURS QUEtiapine (SEROQUEL) 100 mg tablet Take 2 tablets by mouth at bedtime as needed. alendronate (FOSAMAX) 70 mg tablet TAKE 1 TABLET BY MOUTH ONE TIME A WEEK. albuterol HFA (PROVENTIL HFA, VENTOLIN HFA) 90 mcg/actuation inhaler Inhale 2 Puffs as instructed every 4 hours as needed for wheezing/shortness of breath. tiotropium bromide (SPIRIVA RESPIMAT) 2.5 mcg/actuation inhaler INHALE 2 PUFFS BY MOUTH ONCE DAILY DIRECTED fluticasone (FLONASE) 50 mcg/actuation nasal spray spray 2 sprays into each nostril every day buPROPion XL (WELLBUTRIN XL) 150 mg 24 hr tablet take 1 tablet by mouth every day montelukast (SINGULAIR) 10 mg tablet Take 10 mg by mouth daily at bedtime. atorvastatin (LIPITOR) 40 mg tablet TAKE 1 TABLET BY MOUTH EVERY DAY AT NIGHT Nebulizers Use as directed. albuterol (PROVENTIL) 2.5 mg /3 mL (0.083 %) nebulizer solution INHALE 3 ML VIA NEBULIZER EVERY 4 HOURS NEEDED FOR WHEEZE OR FOR SHORTNESS OF BREATH No current facility-administered medications for this visit. ALLERGIES Allergen Reactions Seasonal Allergies Intolerance REVIEW OF SYSTEMS: GENERAL: feeling well without fatigue, weight loss noted RESPIRATORY: chronic lung disease under good control with current medication CARDIOVASCULAR: no chest pain, no palpitations PHYSICAL EXAMINATION: VIDEO EXAM: (if completed, performed via video enabled technology) GENERAL: alert and appropriate, in no distress, happy, smiling, interactive, and thin SKIN: no rash noted RESPIRATORY: breathing non-labored ASSESSMENT: (J43.1) Panlobular emphysema (HCC) (primary encounter diagnosis) (F33.1) Moderate episode of recurrent major depressive disorder (HCC) (J96.11) Chronic respiratory failure with hypoxia (HCC) PLAN: Diagnoses and all orders for this visit: Panlobular emphysema (HCC) - CONSULT TO [facility] - pt cannot drive, has severe anxiety when leaving the house due to oxygen requirements, falls frequently, short of breath with exertion. Would benefit from home health for general strengthening to avoid falls, risk assessment of house, social work consultation for assistance in future usp placement. Moderate episode of recurrent major depressive disorder (HCC) - increase to 30 mg, mirtazapine (REMERON) 15 mg tablet; Take 2 tablet by mouth daily at bedtime. Chronic respiratory failure with hypoxia (HCC) - CONSULT TO [facility] There are no Patient Instructions on file for this visit. Herminia Case MD documented in this encounter [facility] 05-26-2024 Telephone encounter Note Prescription Refill Information The patient has been identified by name and date of : Yes Caregiver verified no other encounters exist for this prescription request: Yes Caregiver confirmed with patient/requestor that no other refills are due, in the near future, with this provider at this time: Yes The last office visit in the department: 05/02/24 Does the patient have a future office visit with this provider/department: Yes Requested Prescriptions Pending Prescriptions Disp Refills mirtazapine (REMERON) 15 mg tablet 90 tablet 0 Sig: Take 1 tablet by mouth daily at bedtime. oxyCODONE-acetaminophen (PERCOCET) 5-325 mg tablet 120 tablet 0 Sig: Take 1 tablet by mouth every 6 hours as needed for pain for up to 30 days. Whit Shay LPN May 26, 2024 12:10 PM [facility] 05-26-2024 Miscellaneous Notes Prescription Refill Information The patient has been identified by name and date of : Yes Caregiver verified no other encounters exist for this prescription request: Yes Caregiver confirmed with patient/requestor that no other refills are due, in the near future, with this provider at this time: Yes The last office visit in the department: 05/02/24 Does the patient have a future office visit with this provider/department: Yes Requested Prescriptions Pending Prescriptions Disp Refills mirtazapine (REMERON) 15 mg tablet 90 tablet 0 Sig: Take 1 tablet by mouth daily at bedtime. oxyCODONE-acetaminophen (PERCOCET) 5-325 mg tablet 120 tablet 0 Sig: Take 1 tablet by mouth every 6 hours as needed for pain for up to 30 days. Whit Shay LPN May 26, 2024 12:10 PM documented in this encounter [facility] 05-22-2024 Note Patient Outreach (FA [facility]) GONZALO DELUCA ([id number]) 1955 F Date Time Provider Department 05/22/24 HERMINIA CASE During your visit today, we recorded the following information about you: Allergies As of Date: 05/22/2024 Noted Allergy Reaction SEASONAL ALLERGIES 08/16/2017 5 - Intolerance Date Reviewed: 12/30/2023 Reviewed by: Joaquina Martinez APRN.AN/SSN 2 4 OPERATOR - Fully Assessed Visit Diagnosis:Encounter for screening mammogram for breast cancer [Z12.31] Order(s):PAOLO SCREENING [facility]ON [[id number]] Order #: [id number] FUTURE Prescriptions as of 06/22/2024 - mirtazapine (REMERON) 30 mg tablet Take 1 tablet by mouth daily at bedtime. - oxyCODONE-acetaminophen (PERCOCET) 5-325 mg tablet Take 1 tablet by mouth every 6 hours as needed for pain for up to 30 days. - predniSONE (DELTASONE) 20 mg tablet 2 tabs daily x 4 days, then 1 tab daily x 4 days, then 1/2 tab daily x 4 days - fluticasone-salmeterol (ADVAIR, WIXELA) 250-50 mcg/dose inhaler Inhale 1 Puff as instructed two times a day. RINSE AND GARGLE MOUTH WITH WATER AFTER EACH USE. - PARoxetine (PAXIL) 40 mg tablet TAKE 1 TABLET BY MOUTH EVERY DAY - cyclobenzaprine (FLEXERIL) 5 mg tablet TAKE 1 TABLET BY MOUTH EVERY 12 HOURS - QUEtiapine (SEROQUEL) 100 mg tablet Take 2 tablets by mouth at bedtime as needed. - alendronate (FOSAMAX) 70 mg tablet TAKE 1 TABLET BY MOUTH ONE TIME A WEEK. - albuterol HFA (PROVENTIL HFA, VENTOLIN HFA) 90 mcg/actuation inhaler Inhale 2 Puffs as instructed every 4 hours as needed for wheezing/shortness of breath. - tiotropium bromide (SPIRIVA RESPIMAT) 2.5 mcg/actuation inhaler INHALE 2 PUFFS BY MOUTH ONCE DAILY DIRECTED - fluticasone (FLONASE) 50 mcg/actuation nasal spray spray 2 sprays into each nostril every day - buPROPion XL (WELLBUTRIN XL) 150 mg 24 hr tablet take 1 tablet by mouth every day - montelukast (SINGULAIR) 10 mg tablet Take 10 mg by mouth daily at bedtime. - atorvastatin (LIPITOR) 40 mg tablet TAKE 1 TABLET BY MOUTH EVERY DAY AT NIGHT - Nebulizers Use as directed. - albuterol (PROVENTIL) 2.5 mg /3 mL (0.083 %) nebulizer solution INHALE 3 ML VIA NEBULIZER EVERY 4 HOURS NEEDED FOR WHEEZE OR FOR SHORTNESS OF BREATH Problem List As Of Date 05/22/2024 Noted Resolved DDD (degenerative disc disease), lumbar [M51.36* Panlobular emphysema (HCC) [J43.1] Major depression, recurrent, chronic (HCC) [F33* Osteoporosis [M81.0] Pulmonary nodule, right [R91.1] Compression fracture of body of thoracic verteb*07/11/2018 Obesity, Class I, BMI 30-34.9 [E66.811] 12/07/2018 03/11/2023 Chronic midline low back pain without sciatica *03/23/2019 History of cervical cancer [Z85.41] 11/02/2019 COPD (chronic obstructive pulmonary disease) wi*02/02/2021 03/09/2023 Chronic respiratory failure with hypoxia (HCC) *08/06/2021 Moderate malnutrition (HCC) [E44.0] 01/22/2023 03/11/2023 Compression fracture of L4 lumbar vertebra, wit*03/11/2023 Moderate episode of recurrent major depressive *03/11/2023 PAUL (generalized anxiety disorder) [F41.1] 03/11/2023 Chronic pain syndrome [G89.4] 03/11/2023 03/11/2023 Former smoker [Z87.891] 04/10/2017 Diagnosed: 03/11/2023 H/O: CVA (cerebrovascular accident) [Z86.73] 11/22/2019 Diagnosed: 03/11/2023 Leukocytosis [D72.829] 04/10/2017 Diagnosed: 03/11/2023 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/07/2019 05/20/2023 Diagnosed: 03/11/2023 Neoplasm of uncertain behavior of skin [D48.5] 04/23/2016 Diagnosed: 03/11/2023 Nondisplaced fracture of neck of left femur (HC*11/06/2022 Diagnosed: 03/11/2023 Other specified complication of vascular prosth*08/06/2021 Diagnosed: 03/11/2023 PNA (pneumonia) [J18.9] 08/02/2019 Diagnosed: 03/11/2023 Right arm weakness [R29.898] 11/21/2019 Diagnosed: 03/11/2023 Poor venous access [I87.8] 12/19/2019 Diagnosed: 03/11/2023 S/P hysterectomy [Z90.710] 11/06/2019 Diagnosed: 03/11/2023 Sciatica [M54.30] 04/10/2017 Diagnosed: 03/11/2023 Shortness of breath [R06.02] 04/13/2018 Diagnosed: 03/11/2023 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] 04/10/2017 Diagnosed: 03/11/2023 Encounter Status:Closed by MEG HARRISON on 06/22/24 [facility] 05-09-2024 Telephone encounter Note Pt has refills on current prescription that should be available until end may. Melva Powell PA-C [facility] 05-09-2024 Miscellaneous Notes Pt has refills on current prescription that should be available until end may. Melva Powell PA-C Prescription Refill Information The patient has been identified by name and date of : Yes Caregiver verified no other encounters exist for this prescription request: Yes Caregiver confirmed with patient/requestor that no other refills are due, in the near future, with this provider at this time: Yes The last office visit in the department: 05/02/24 Does the patient have a future office visit with this provider/department: Yes Requested Prescriptions Pending Prescriptions Disp Refills cyclobenzaprine (FLEXERIL) 5 mg tablet [Pharmacy Med Name: CYCLOBENZAPRINE 5 MG TABLET] 30 tablet 2 Sig: TAKE 1 TABLET BY MOUTH EVERY 12 HOURS Tate Weathers MA May 09, 2024 9:26 AM documented in this encounter [facility] 05-09-2024 Telephone encounter Note Prescription Refill Information The patient has been identified by name and date of : Yes Caregiver verified no other encounters exist for this prescription request: Yes Caregiver confirmed with patient/requestor that no other refills are due, in the near future, with this provider at this time: Yes The last office visit in the department: 05/02/24 Does the patient have a future office visit with this provider/department: Yes Requested Prescriptions Pending Prescriptions Disp Refills cyclobenzaprine (FLEXERIL) 5 mg tablet [Pharmacy Med Name: CYCLOBENZAPRINE 5 MG TABLET] 30 tablet 2 Sig: TAKE 1 TABLET BY MOUTH EVERY 12 HOURS Tate Weathers MA May 09, 2024 9:26 AM [facility] 05-02-2024 Note HNO ID: [id number] Author: ?, ?, ? Service: ? Author Type: ? Type: Progress Notes Filed: 05/02/2024 18:24 Note Text: Pt got scheduled [facility] 05-02-2024 Note HNO ID: [id number] Author: ?, ?, ? Service: ? Author Type: ? Type: Progress Notes Filed: 05/02/2024 12:10 Note Text: Mc sent [facility] 05-02-2024 History of Presen t illness Narrative Mc sent VIRTUAL VISIT PROGRESS NOTE This is a virtual visit using [employer] Video Visit. It required patient-provider interaction for the medical decision making as documented below. I have communicated my name and active licensure. The patient's identity and physical location were verified at the time of this visit. Either the patient or their legal financial sales representative has been informed of the risks and benefits of -- and alternatives to -- treatment through a remote evaluation and consents to proceed with the evaluation remotely. Gonzalo Deluca is a 68 year old female seen for follow up. Chronic pain Osteoporosis with compression fracture Percocet qid, last filled 04/03 Definitely helps her get around the house better. Emphysema On oxygen 3L continuous Not breathing well today, no fever, baseline chronic cough, feels sob at rest today. No chest pain. Hasn't used her albuterol today, Used advair and spiriva this morning. No sick contacts. Recent fall a few days ago, went to [place] [facility] Doesn't recall how it happened, fell in her room, thinks she tripped, hit her face on the floor no LOC Bruising over her right inferior orbital area, left elbow bruised. CT head/ neck normal, xray left elbow normal. Anxiety - doing well on paxil 40 mg seroquel at bedtime, mirtazapine at bedtime sleeping well. Mood is ok. Blood sugar 179 in the ER No results found for: "HBA1C") Cholesterol, Total (mg/dL) Date Value 09/15/2022 169 12/07/2018 159 HDL Cholesterol (mg/dL) Date Value 09/15/2022 54 12/07/2018 61 LDL Cholesterol (mg/dL) Date Value 09/15/2022 85 12/07/2018 88 Triglyceride (mg/dL) Date Value 09/15/2022 150 12/07/2018 48 HISTORY REVIEWED (electronic chart updated): PAST MEDICAL HISTORY Diagnosis Date COPD (chronic obstructive pulmonary disease) (HCC) DDD (degenerative disc disease), lumbar Encounter for chronic pain management Major depression, recurrent, chronic (HCC) Osteoporosis Pulmonary nodule, right 2015 PAST SURGICAL HISTORY Procedure Laterality Date CYSTOSCOPY 01/12/2017 CYSTOSCOPY 02/11/2017 EYE SURGERY HX Right 1994 detached retina HIP SURGERY HX Left 10/2022 ORIF for fracture TUBAL LIGATION HX 1992 FAMILY HISTORY Problem Relation Age of Onset Breast Cancer Mother 65 other (lung cancer) Father Breast Cancer Sister 62 No Known Problems Brother other (negative genetic testing for breast CA) Daughter Social History Tobacco Use Smoking status: Former Current packs/day: 0.00 Average packs/day: 1.5 packs/day for 69.0 years (103.5 ttl pk-yrs) Types: Cigarettes Start date: 1971 Quit date: 2018 Years since quittin.1 Smokeless tobacco: Never Tobacco comments: vaping intermittently Vaping Use Vaping status: Never Used Substance Use Topics Alcohol use: No Drug use: No Current Outpatient Medications Medication Sig predniSONE (DELTASONE) 20 mg tablet 2 tabs daily x 4 days, then 1 tab daily x 4 days, then 1/2 tab daily x 4 days oxyCODONE-acetaminophen (PERCOCET) 5-325 mg tablet Take 1 tablet by mouth every 6 hours as needed for pain for up to 30 days. fluticasone-salmeterol (ADVAIR, WIXELA) 250-50 mcg/dose inhaler Inhale 1 Puff as instructed two times a day. RINSE AND GARGLE MOUTH WITH WATER AFTER EACH USE. PARoxetine (PAXIL) 40 mg tablet TAKE 1 TABLET BY MOUTH EVERY DAY cyclobenzaprine (FLEXERIL) 5 mg tablet TAKE 1 TABLET BY MOUTH EVERY 12 HOURS QUEtiapine (SEROQUEL) 100 mg tablet Take 2 tablets by mouth at bedtime as needed. mirtazapine (REMERON) 15 mg tablet TAKE 1 TABLET BY MOUTH EVERYDAY AT BEDTIME alendronate (FOSAMAX) 70 mg tablet TAKE 1 TABLET BY MOUTH ONE TIME A WEEK. albuterol HFA (PROVENTIL HFA, VENTOLIN HFA) 90 mcg/actuation inhaler Inhale 2 Puffs as instructed every 4 hours as needed for wheezing/shortness of breath. tiotropium bromide (SPIRIVA RESPIMAT) 2.5 mcg/actuation inhaler INHALE 2 PUFFS BY MOUTH ONCE DAILY DIRECTED fluticasone (FLONASE) 50 mcg/actuation nasal spray spray 2 sprays into each nostril every day buPROPion XL (WELLBUTRIN XL) 150 mg 24 hr tablet take 1 tablet by mouth every day diclofenac (VOLTAREN ARTHRITIS PAIN) 1 % topical gel Apply 2 g to affected area four times daily. montelukast (SINGULAIR) 10 mg tablet Take 10 mg by mouth daily at bedtime. diclofenac (VOLTAREN) 1 % topical gel Apply 4 g to affected area. atorvastatin (LIPITOR) 40 mg tablet TAKE 1 TABLET BY MOUTH EVERY DAY AT NIGHT Nebulizers Use as directed. albuterol (PROVENTIL) 2.5 mg /3 mL (0.083 %) nebulizer solution INHALE 3 ML VIA NEBULIZER EVERY 4 HOURS NEEDED FOR WHEEZE OR FOR SHORTNESS OF BREATH No current facility-administered medications for this visit. ALLERGIES Allergen Reactions Seasonal Allergies Intolerance REVIEW OF SYSTEMS: GENERAL: feeling well without fatigue, no recent change in weight RESPIRATORY: no cough, feeling sob CARDIOVASCULAR: no chest pain, no palpitations PHYSICAL EXAMINATION: VIDEO EXAM: (if completed, performed via video enabled technology) GENERAL: alert and appropriate, in no distress, well-hydrated, well nourished, and happy, smiling, interactive SKIN: no rash noted RESPIRATORY: wearing oxygen ASSESSMENT: (S22.000A) Compression fracture of body of thoracic vertebra (HCC) (primary encounter diagnosis) (J43.1) Panlobular emphysema (HCC) (F33.1) Moderate episode of recurrent major depressive disorder (HCC) (F41.1) PAUL (generalized anxiety disorder) (J96.11) Chronic respiratory failure with hypoxia (HCC) (E78.2) Hyperlipidemia, mixed (R73.9) Hyperglycemia (S42.294D) Other closed nondisplaced fracture of proximal end of right humerus with routine healing, subsequent encounter PLAN: Diagnoses and all orders for this visit: Compression fracture of body of thoracic vertebra (HCC) - oxyCODONE-acetaminophen (PERCOCET) 5-325 mg tablet; Take 1 tablet by mouth every 6 hours as needed for pain for up to 30 days. Panlobular emphysema (HCC) - predniSONE (DELTASONE) 20 mg tablet; 2 tabs daily x 4 days, then 1 tab daily x 4 days, then 1/2 tab daily x 4 days Moderate episode of recurrent major depressive disorder (HCC) Continue current meds PAUL (generalized anxiety disorder) Continue current meds Chronic respiratory failure with hypoxia (HCC) Continue oxygen Hyperlipidemia, mixed - COMPLETE BLOOD COUNT AND DIFFERENTIAL; Future - HEPATIC FUNCTION PNL; Future - LIPID PANEL BASIC; Future Hyperglycemia - HEMOGLOBIN A1C; Future Other closed nondisplaced fracture of proximal end of right humerus with routine healing, subsequent encounter - oxyCODONE-acetaminophen (PERCOCET) 5-325 mg tablet; Take 1 tablet by mouth every 6 hours as needed for pain for up to 30 days. PDMP website checked and validated. All prescriptions have been APPROPRIATELY filled. No suspicious activity was identified. 05/02/2024 by Herminia Case MD There are no Patient Instructions on file for this visit. Herminia Case MD documented in this encounter [facility] 05-02-2024 Note HNO ID: [id number] Author: HERMINIA CASE MD Service: ? Author Type: Physician Type: Progress Notes Filed: 05/02/2024 11:35 Note Text: VIRTUAL VISIT PROGRESS NOTE This is a virtual visit using [employer] Video Visit. It required patient-provider interaction for the medical decision making as documented below. I have communicated my name and active licensure. The patient's identity and physical location were verified at the time of this visit. Either the patient or their legal financial sales representative has been informed of the risks and benefits of -- and alternatives to -- treatment through a remote evaluation and consents to proceed with the evaluation remotely. Gonzalo Deluca is a 68 year old female seen for follow up. Chronic pain Osteoporosis with compression fracture Percocet qid, last filled 04/03 Definitely helps her get around the house better. Emphysema On oxygen 3L continuous Not breathing well today, no fever, baseline chronic cough, feels sob at rest today. No chest pain. Hasn't used her albuterol today, Used advair and spiriva this morning. No sick contacts. Recent fall a few days ago, went to [facility] Doesn't recall how it happened, fell in her room, thinks she tripped, hit her face on the floor no LOC Bruising over her right inferior orbital area, left elbow bruised. CT head/ neck normal, xray left elbow normal. Anxiety - doing well on paxil 40 mg seroquel at bedtime, mirtazapine at bedtime sleeping well. Mood is ok. Blood sugar 179 in the ER No results found for: "HBA1C") Cholesterol, Total (mg/dL) Date Value 09/15/2022 169 12/07/2018 159 HDL Cholesterol (mg/dL) Date Value 09/15/2022 54 12/07/2018 61 LDL Cholesterol (mg/dL) Date Value 09/15/2022 85 12/07/2018 88 Triglyceride (mg/dL) Date Value 09/15/2022 150 12/07/2018 48 HISTORY REVIEWED (electronic chart updated): PAST MEDICAL HISTORY Diagnosis Date COPD (chronic obstructive pulmonary disease) (HCC) DDD (degenerative disc disease), lumbar Encounter for chronic pain management Major depression, recurrent, chronic (HCC) Osteoporosis Pulmonary nodule, right 2016 PAST SURGICAL HISTORY Procedure Laterality Date CYSTOSCOPY 01/12/2017 CYSTOSCOPY 02/11/2017 EYE SURGERY HX Right 1994 detached retina HIP SURGERY HX Left 10/2022 ORIF for fracture TUBAL LIGATION HX 1992 FAMILY HISTORY Problem Relation Age of Onset Breast Cancer Mother 65 other (lung cancer) Father Breast Cancer Sister 62 No Known Problems Brother other (negative genetic testing for breast CA) Daughter Social History Tobacco Use Smoking status: Former Current packs/day: 0.00 Average packs/day: 1.5 packs/day for 69.0 years (103.5 ttl pk-yrs) Types: Cigarettes Start date: 1971 Quit date: 2018 Years since quittin.1 Smokeless tobacco: Never Tobacco comments: vaping intermittently Vaping Use Vaping status: Never Used Substance Use Topics Alcohol use: No Drug use: No Current Outpatient Medications Medication Sig predniSONE (DELTASONE) 20 mg tablet 2 tabs daily x 4 days, then 1 tab daily x 4 days, then 1/2 tab daily x 4 days oxyCODONE-acetaminophen (PERCOCET) 5-325 mg tablet Take 1 tablet by mouth every 6 hours as needed for pain for up to 30 days. fluticasone-salmeterol (ADVAIR, WIXELA) 250-50 mcg/dose inhaler Inhale 1 Puff as instructed two times a day. RINSE AND GARGLE MOUTH WITH WATER AFTER EACH USE. PARoxetine (PAXIL) 40 mg tablet TAKE 1 TABLET BY MOUTH EVERY DAY cyclobenzaprine (FLEXERIL) 5 mg tablet TAKE 1 TABLET BY MOUTH EVERY 12 HOURS QUEtiapine (SEROQUEL) 100 mg tablet Take 2 tablets by mouth at bedtime as needed. mirtazapine (REMERON) 15 mg tablet TAKE 1 TABLET BY MOUTH EVERYDAY AT BEDTIME alendronate (FOSAMAX) 70 mg tablet TAKE 1 TABLET BY MOUTH ONE TIME A WEEK. albuterol HFA (PROVENTIL HFA, VENTOLIN HFA) 90 mcg/actuation inhaler Inhale 2 Puffs as instructed every 4 hours as needed for wheezing/shortness of breath. tiotropium bromide (SPIRIVA RESPIMAT) 2.5 mcg/actuation inhaler INHALE 2 PUFFS BY MOUTH ONCE DAILY DIRECTED fluticasone (FLONASE) 50 mcg/actuation nasal spray spray 2 sprays into each nostril every day buPROPion XL (WELLBUTRIN XL) 150 mg 24 hr tablet take 1 tablet by mouth every day diclofenac (VOLTAREN ARTHRITIS PAIN) 1 % topical gel Apply 2 g to affected area four times daily. montelukast (SINGULAIR) 10 mg tablet Take 10 mg by mouth daily at bedtime. diclofenac (VOLTAREN) 1 % topical gel Apply 4 g to affected area. atorvastatin (LIPITOR) 40 mg tablet TAKE 1 TABLET BY MOUTH EVERY DAY AT NIGHT Nebulizers Use as directed. albuterol (PROVENTIL) 2.5 mg /3 mL (0.083 %) nebulizer solution INHALE 3 ML VIA NEBULIZER EVERY 4 HOURS NEEDED FOR WHEEZE OR FOR SHORTNESS OF BREATH No current facility-administered medications for this visit. ALLERGIES Allergen Reactions Seasonal Allergies Intolerance REVIEW OF SYSTEMS: GENERAL: (more content not included)... [facility] 05-01-2024 Telephone encounter Note Mc sent [facility] 05-01-2024 Miscellaneous Notes Mc sent Needs appointment. Prescription Refill Information The patient has been identified by name and date of : Yes Caregiver verified no other encounters exist for this prescription request: Yes Caregiver confirmed with patient/requestor that no other refills are due, in the near future, with this provider at this time: Yes The last office visit in the department: 12/30/23 Does the patient have a future office visit with this provider/department: No Requested Prescriptions Pending Prescriptions Disp Refills oxyCODONE-acetaminophen (PERCOCET) 5-325 mg tablet 120 tablet 0 Sig: Take 1 tablet by mouth every 6 hours as needed for pain for up to 30 days. Whit Shay LPN April 30, 2024 6:08 PM documented in this encounter [facility] 05-01-2024 Telephone encounter Note Needs appointment. [facility] 04-30-2024 Telephone encounter Note Prescription Refill Information The patient has been identified by name and date of : Yes Caregiver verified no other encounters exist for this prescription request: Yes Caregiver confirmed with patient/requestor that no other refills are due, in the near future, with this provider at this time: Yes The last office visit in the department: 12/30/23 Does the patient have a future office visit with this provider/department: No Requested Prescriptions Pending Prescriptions Disp Refills oxyCODONE-acetaminophen (PERCOCET) 5-325 mg tablet 120 tablet 0 Sig: Take 1 tablet by mouth every 6 hours as needed for pain for up to 30 days. Whit Shay LPN April 30, 2024 6:08 PM [facility] 04-27-2024 Emergency department Note Patient: Gonzalo Deluca : 1955 Date of Evaluation: 04/27/2024 ED Supervising Physician: Flako Altamirano MD I personally evaluated Gonzalo Deluca and made/approved the management plan and take responsibility for the patient management. This will serve as my Supervisory note and shared attestation. I did perform a substantive portion of the visit including all aspects of the Medical Decision Making. I wore appropriate PPE for the entirety of this encounter. In brief, Gonzalo Deluca is a 68 y.o. that presents to the emergency department after a fall. States that she got up to go to the bathroom and lost her balance and fell hitting her face. She also has left elbow pain. Denies any blood thinner usage. Denies chest pain, shortness of breath, or any cold symptoms including no fever, cough, congestion. On physical exam she has an abrasion and contusion to the right side of her nose. She also has tenderness to palpation of her left elbow and pain with range of motion of the left elbow. Patient is also mildly tachycardic and her blood pressure is 90 systolic. She has mildly dry mucous membranes. Will check labs, EKG, CT head without IV contrast, CT cervical spine without IV contrast, x-ray left elbow, give IV fluids, and reassess. The differential diagnosis associated with this patient's presentation includes acute ICH, acute C-spine fracture, acute facial fracture, acute dehydration, acute kidney injury, acute electrolyte abnormality, acute elbow fracture. I personally discussed the patient's management with other clinicians: All diagnostic, treatment, and disposition decisions were made by myself in conjunction with the Resident. I also supervised cardenas portions of any procedures performed by the Resident. For all further details of the patient's emergency department visit, please see their documentation. (Comment: Please note this report has been produced using speech recognition software and may contain errors related to that system including errors in grammar, punctuation, and spelling, as well as words and phrases that may be inappropriate. If there are any questions or concerns please feel free to contact the dictating provider for clarification.) Flako Altamirano MD [employer] [facility] [place] CHIEF COMPLAINT Chief Complaint Patient presents with Fall Weakness, Gen C/o of face pain and L elbow pain 2ndary fall. Pt states she felt weak and dizzy prior to fall but no LOC HISTORY OF PRESENT ILLNESS (Location/Symptom, Timing/Onset, Context/Setting, Quality, Duration, Modifying Factors, Severity) Note limiting factors. I wore appropriate PPE for the entirety of this encounter. Nursing Notes were reviewed. Limitations to history: None Outside historians: None REVIEW OF SYSTEMS Review of Systems Musculoskeletal: Left elbow pain Pertinent positives and negatives as per HPI. PAST MEDICAL HISTORY Past Medical History: Diagnosis Date Abnormal stress test Acute exacerbation of chronic obstructive pulmonary disease ([facility]) 04/12/2018 Allergic rhinitis Arthritis Asthma Bronchitis Cancer ([facility]/HCC) (HCC) skin Cervical cancer ([facility]) Chest pain COPD (chronic obstructive pulmonary disease) ([facility]) USE OXYGEN 3 L AT NIGHT DDD (degenerative disc disease), cervical Defect, retina, with detachment right DJD (degenerative joint disease), lumbar Emphysema lung ([facility]) Former smoker Hematuria SCHEDULED FOR THE PROCEDURE /SURGERY ON 02/11/2017 Hypokalemia Lung nodules Near syncope 09/19/2023 Osteoporosis Palpitations Pneumonia Recurrent major depression ([facility]) Sciatica Thoracic compression fracture ([facility]) Vitamin D deficiency SURGICAL HISTORY Past Surgical History: Procedure Laterality Date CYSTOSCOPY 01/12/2017 OFFICE PROCEDURE CYSTOSCOPY 02/11/2017 C&P bladder biopsy EYE SURGERY detached retina 1994 HYSTERECTOMY 11/06/2019 ABDOMINAL RADICAL HYSTERECTOMY WITH BSO AND PELVIC LYMPH; DR. ZIYAD MENENDEZ [facility] OTHER SURGICAL HISTORY Left 12/19/2019 Med Port POWER Regular Size OTHER SURGICAL HISTORY Left 11/07/2022 Percutaneous skeltal fixation femoral fracture TUBAL LIGATION 1992 CURRENT MEDICATIONS Previous Medications ALBUTEROL 108 (90 BASE) MCG/ACT INHALER Inhale 2 puffs every 4 hours as needed. ALENDRONATE (FOSAMAX) 70 MG TABLET Take 70 mg by mouth once a week. ASPIRIN 81 MG EC TABLET Take 81 mg by mouth. ATORVASTATIN (LIPITOR) 40 MG TABLET Take 1 tablet by mouth Nightly. BUPROPION XL (WELLBUTRIN XL) 150 MG 24 HR TABLET Take 150 mg by mouth in the morning. BUSPIRONE (BUSPAR) 15 MG TABLET Take 1 tablet (15 mg) by mouth 2 times daily. CALCITONIN (MIACALCIN) 200 UNIT/ML INJECTION Inject 0.25 mL (50 Units) into the shoulder, thigh, or buttocks daily. CALCIUM CARBONATE-CHOLECALCIFEROL (OYSTER SHELL) 250-3.125 MG-MCG TABLET Take 1 tablet by mouth. DICLOFENAC SODIUM (VOLTAREN) 1 % GEL Apply 4 g topically 2 times daily. FLUTICASONE (FLONASE) 50 MCG/ACT NASAL SPRAY 2 sprays in the morning. FLUTICASONE FUROATE-VILANTEROL (BREO ELLIPTA) 200-25 MCG/ACT AEROSOL POWDER Inhale 1 puff daily. GABAPENTIN (NEURONTIN) 600 MG TABLET Take 1 tablet by mouth daily. LIDOCAINE (LIDODERM) 5 % PATCH Apply 1 patch topically daily. Remove & discard patch within 12 hours or as directed by MD. MAGNESIUM OXIDE (MAG-OX) 400 MG TABLET 400 mg daily. MELATONIN 3 MG TABLET Take 1 tablet (3 mg) by mouth Nightly. METHOCARBAMOL (ROBAXIN) 500 MG TABLET Take 2 tablets (1,000 mg) by mouth every 8 hours as needed for muscle spasms for up to 10 days. MIRTAZAPINE (REMERON) 15 MG TABLET Take 1 tablet (15 mg) by mouth Nightly. MONTELUKAST (SINGULAIR) 10 MG TABLET Take 10 mg by mouth Nightly. NICOTINE (NICODERM, STEP 1) 21 MG/24HR PATCH Place 1 patch on the skin daily. Do not start before November 09, 2022. PAROXETINE (PAXIL) 20 MG TABLET Take 1 tablet (20 mg) by mouth every morning. TIOTROPIUM (SPIRIVA RESPIMAT) 2.5 MCG/ACT INHALER Inhale 2 puffs in the morning. ZINC 50 MG CAPSULE Take 50 mg by mouth. ALLERGIES Pollen extract FAMILY HISTORY Family History Problem Relation Name Age of Onset Colon cancer Neg Hx Ovarian cancer Neg Hx Cancer Mother breast- to liver Cancer Sister breast Cancer Father lung to brain No Known Problems Brother Uterine cancer Neg Hx SOCIAL HISTORY Social History Socioeconomic History Marital status: Tobacco Use Smoking status: Former Current packs/day: 0.00 Types: Cigarettes Quit date: 09/20/2011 Years since quittin.6 Smokeless tobacco: Never Tobacco comments: Quit smoking: pt states she quit 4-5 years ago Vaping Use Vaping status: Every Day Substances: Nicotine Devices: Refillable tank Substance and Sexual Activity Alcohol use: Not Currently Comment: Approx once a year Drug use: No Sexual activity: Defer Social Drivers of Health Financial Resource Strain: Low Risk (09/19/2023) Overall Financial Resource Strain (CARDIA) Difficulty of Paying Living Expenses: Not hard at all Food Insecurity: No Food Insecurity (09/19/2023) Hunger Vital Sign Worried About Running Out of Food in the Last Year: Never true Ran Out of Food in the Last Year: Never true Transportation Needs: No Transportation Needs (09/19/2023) PRAPARE - Transportation Lack of Transportation (Medical): No Lack of Transportation (Non-Medical): No Physical Activity: Inactive (09/19/2023) Exercise Vital Sign Days of Exercise per Week: 0 days Minutes of Exercise per Session: 0 min Stress: No Stress Concern Present (09/19/2023) [employer] [place] [employer] - Occupational Stress Questionnaire Feeling of Stress : Only a little Social Connections: Socially Isolated (09/19/2023) Social Connection and Isolation Panel [NHANES] Frequency of Communication with Friends and Family: Three times a week Frequency of Social Gatherings with Friends and Family: Three times a week Attends Judaism Services: Never Active Member of Clubs or Organizations: No Attends Club or Organization Meetings: Never Marital Status: Intimate Partner Violence: Not At Risk (09/19/2023) Humiliation, Afraid, Rape, and Kick questionnaire Fear of Current or Ex-Partner: No Emotionally Abused: No Physically Abused: No Sexually Abused: No Housing Stability: Low Risk (09/19/2023) Housing Stability Vital Sign Unable to Pay for Housing in the Last Year: No Number of Times Moved in the Last Year: 1 Homeless in the Last Year: No SCREENINGS [place] Coma Scale Best Eye Response: Spontaneous Best Verbal Response: Oriented Best Motor Response: Follows commands Angelina Coma Scale Score: 15 PHYSICAL EXAM ED Triage Vitals [04/27/24 2343] Temp Heart Rate Resp BP 36.7 C (98.1 F) 101 20 90/64 SpO2 Temp Source Heart Rate Source Patient Position (!) 92 % Oral Monitor Lying BP Location FiO2 (%) Right arm -- Physical Exam Vitals and nursing note reviewed. Constitutional: General: She is not in acute distress. Appearance: She is well-developed. HENT: Head: Normocephalic. Comments: Abrasion/contusion to the right side of the nose Mouth/Throat: Mouth: Mucous membranes are dry. Eyes: Conjunctiva/sclera: Conjunctivae normal. Cardiovascular: Rate and Rhythm: Regular rhythm. Tachycardia present. Pulmonary: Effort: Pulmonary effort is normal. No respiratory distress. Breath sounds: Normal breath sounds. Abdominal: Palpations: Abdomen is soft. Tenderness: There is no abdominal tenderness. Musculoskeletal: Cervical back: Neck supple. Comments: Tenderness to palpation and pain with range of motion of the left elbow Skin: General: Skin is warm and dry. Neurological: Mental Status: She is alert. Comments: NIHSS equals 0 Test of skew is normal Psychiatric: Mood and Affect: Mood normal. DIAGNOSTIC RESULTS Procedures/EKG: RADIOLOGY (Per Emergency Physician): Interpretation per the Radiologist below, if available at the time of this note: CT cervical spine wo IV contrast Final Result Impression: No acute process seen. CT cervical spine: Indication: Trauma and neck pain FINDINGS: Dose reduction was employed with automated exposure control. Unenhanced cervical spine performed. 3-D imaging created and reviewed on independent 3-D workstation for better detection of pathology evaluation of neural foramina. Limited by motion. Bone density:Normal. Acute lesions: No acute fracture or dislocation. Soft tissues: No soft tissue swelling. Arthritis: Degenerative changes visible. Posterior osteophytes cause neural foraminal narrowing. Limited views of skull base unremarkable. Visualized portions of lung apices Show no major volume loss.. IMPRESSION: No acute bone process. Report Dictated on Electronically Signed By: Ramses aGmble MD Electronically Signed Date/Time: 04/28/2024 12:[address] head wo IV contrast Final Result Impression: No acute process seen. CT cervical spine: Indication: Trauma and neck pain FINDINGS: Dose reduction was employed with automated exposure control. Unenhanced cervical spine performed. 3-D imaging created and reviewed on independent 3-D workstation for better detection of pathology evaluation of neural foramina. Limited by motion. Bone density:Normal. Acute lesions: No acute fracture or dislocation. Soft tissues: No soft tissue swelling. Arthritis: Degenerative changes visible. Posterior osteophytes cause neural foraminal narrowing. Limited views of skull base unremarkable. Visualized portions of lung apices Show no major volume loss.. IMPRESSION: No acute bone process. Report Dictated on Electronically Signed By: Ramses Gamble MD Electronically Signed Date/Time: 04/28/2024 12:50 AM EST XR elbow 3+ views left Final Result Findings and impression: Left elbow three views performed. Bone density is normal. No fracture or dislocation seen. Report Dictated on Electronically Signed By: Ramses Gamble MD Electronically Signed Date/Time: 04/28/2024 12:23 AM EST ED BEDSIDE ULTRASOUND: Performed by ED Physician - none LABS: Labs Reviewed CBC WITH AUTO DIFFERENTIAL - Abnormal Result Value Auto WBC 6.5 RBC 3.72 (*) Hemoglobin 11.5 (*) Hematocrit 37.3 MCV 100.3 (*) MCH 30.9 MCHC 30.8 RDW 13.2 Platelets 165 MPV 10.0 nRBC 0.0 Neutrophils Relative 77.8 Lymphocytes Relative 10.6 (*) Monocytes Relative 6.5 Eosinophils Relative 4.0 Basophils Relative 0.6 Immature Grans % 0.5 Neutrophils Absolute 5.1 Lymphocytes Absolute 0.7 (*) Monocytes Absolute 0.4 Eosinophils Absolute 0.3 Basophils Absolute 0.0 Immature Grans Absolute 0.0 BASIC METABOLIC PANEL - Abnormal SODIUM 143 POTASSIUM 3.6 CHLORIDE 102 CARBON DIOXIDE 33 (*) UREA NITROGEN 13 CREATININE 0.78 GLUCOSE 179 (*) CALCIUM 9.1 ANION GAP 8 eGFR 83.4 HIGH SENSITIVITY TROPONIN, SERIAL BASELINE - Normal Troponin HS Serial Baseline 4 MAGNESIUM - Normal MAGNESIUM 2.0 Narrative: Higher values can be expected in females during menses. HIGH SENSITIVITY TROPONIN, SERIAL, SECOND TEST All other labs were within normal range or not returned as of this dictation. EMERGENCY DEPARTMENT COURSE and DIFFERENTIAL DIAGNOSIS/MDM: Vitals: Vitals: 04/27/24 2343 04/28/243 04/28/244 BP: 90/64 102/70 BP Location: Right arm Right arm Patient Position: Lying Lying Pulse: 101 89 Resp: 20 15 Temp: 36.7 C (98.1 F) TempSrc: Oral SpO2: (!) 92% 96% 96% Weight: 49 kg (108 lb) Height: 1.6 m (5' 3") Diagnoses as of 04/28/24111 Contusion of face, initial encounter Medications ketorolac (Toradol) injection 15 mg (has no administration in time range) sodium chloride 0.9 % bolus 1,000 mL (1,000 mL IntraVENous New Bag 04/27/24 9770) REVAL: MDM On reassessment I talked to the patient about her test results. Her CT head and C-spine are unremarkable. Her x-ray elbow showed no acute bony abnormality. We discussed symptoms that should prompt immediate return to the emergency department. Will discharge home at this time with precautions to return for worsening or changing symptoms. CRITICAL CARE TIME CONSULTS: None PROCEDURES: Unless otherwise noted below, none Procedures Patients symptoms are consistent with sepsis, severe sepsis, or septic shock (If yes use ".sepsiscoremeasure"): No FINAL IMPRESSION 1. Contusion of face, initial encounter DISPOSITION Discharge 04/28/2024 01:11:17 AM PATIENT REFERRED TO: Herminia Case MD [address] [place] [id number] DISCHARGE MEDICATIONS: New Prescriptions No medications on file (Comment: Please note this report has been produced using speech recognition software and may contain errors related to that system including errors in grammar, punctuation, and spelling, as well as words and phrases that may be inappropriate. If there are any questions or concerns please feel free to contact the dictating provider for clarification.) Flako Altamirano MD (electronically signed) Emergency Medicine Provider Flako Altamirano MD 04/28/24111 Per ems, fall on carpeted floor. _ LOC but pt states she was dizzy and weak prior to fall. C/o L elbow and nose pain 2ndary fall documented in this encounter [facility] 04-27-2024 Emergency department Triage note Per ems, fall on carpeted floor. _ LOC but pt states she was dizzy and weak prior to fall. C/o L elbow and nose pain 2ndary fall [facility] 04-27-2024 Physician Emergency department Note Patient: Gonzalo Deluca : 1955 Date of Evaluation: 04/27/2024 ED Supervising Physician: Flako Altamirano MD I personally evaluated Gonzalo Deluca and made/approved the management plan and take responsibility for the patient management. This will serve as my Supervisory note and shared attestation. I did perform a substantive portion of the visit including all aspects of the Medical Decision Making. I wore appropriate PPE for the entirety of this encounter. In brief, Gonzalo Deluca is a 68 y.o. that presents to the emergency department after a fall. States that she got up to go to the bathroom and lost her balance and fell hitting her face. She also has left elbow pain. Denies any blood thinner usage. Denies chest pain, shortness of breath, or any cold symptoms including no fever, cough, congestion. On physical exam she has an abrasion and contusion to the right side of her nose. She also has tenderness to palpation of her left elbow and pain with range of motion of the left elbow. Patient is also mildly tachycardic and her blood pressure is 90 systolic. She has mildly dry mucous membranes. Will check labs, EKG, CT head without IV contrast, CT cervical spine without IV contrast, x-ray left elbow, give IV fluids, and reassess. The differential diagnosis associated with this patient's presentation includes acute ICH, acute C-spine fracture, acute facial fracture, acute dehydration, acute kidney injury, acute electrolyte abnormality, acute elbow fracture. I personally discussed the patient's management with other clinicians: All diagnostic, treatment, and disposition decisions were made by myself in conjunction with the Resident. I also supervised cardenas portions of any procedures performed by the Resident. For all further details of the patient's emergency department visit, please see their documentation. (Comment: Please note this report has been produced using speech recognition software and may contain errors related to that system including errors in grammar, punctuation, and spelling, as well as words and phrases that may be inappropriate. If there are any questions or concerns please feel free to contact the dictating provider for clarification.) Flako Altamirano MD [facility] [employer] CHIEF COMPLAINT Chief Complaint Patient presents with Fall Weakness, Gen C/o of face pain and L elbow pain 2ndary fall. Pt states she felt weak and dizzy prior to fall but no LOC HISTORY OF PRESENT ILLNESS (Location/Symptom, Timing/Onset, Context/Setting, Quality, Duration, Modifying Factors, Severity) Note limiting factors. I wore appropriate PPE for the entirety of this encounter. Nursing Notes were reviewed. Limitations to history: None Outside historians: None REVIEW OF SYSTEMS Review of Systems Musculoskeletal: Left elbow pain Pertinent positives and negatives as per HPI. PAST MEDICAL HISTORY Past Medical History: Diagnosis Date Abnormal stress test Acute exacerbation of chronic obstructive pulmonary disease (HCC) 04/12/2018 Allergic rhinitis Arthritis Asthma Bronchitis Cancer ([facility]) (HCC) skin Cervical cancer ([facility]) Chest pain COPD (chronic obstructive pulmonary disease) ([facility]) USE OXYGEN 3 L AT NIGHT DDD (degenerative disc disease), cervical Defect, retina, with detachment right DJD (degenerative joint disease), lumbar Emphysema lung ([facility]) Former smoker Hematuria SCHEDULED FOR THE PROCEDURE /SURGERY ON 02/11/2017 Hypokalemia Lung nodules Near syncope 09/19/2023 Osteoporosis Palpitations Pneumonia Recurrent major depression ([facility]) Sciatica Thoracic compression fracture ([facility]) Vitamin D deficiency SURGICAL HISTORY Past Surgical History: Procedure Laterality Date CYSTOSCOPY 01/12/2017 OFFICE PROCEDURE CYSTOSCOPY 02/11/2017 C&P bladder biopsy EYE SURGERY detached retina 1994 HYSTERECTOMY 11/06/2019 ABDOMINAL RADICAL HYSTERECTOMY WITH BSO AND PELVIC LYMPH; DR. ZIYAD FISH OTHER SURGICAL HISTORY Left 12/19/2019 Med Port POWER Regular Size OTHER SURGICAL HISTORY Left 11/07/2022 Percutaneous skeltal fixation femoral fracture TUBAL LIGATION 1992 CURRENT MEDICATIONS Previous Medications ALBUTEROL 108 (90 BASE) MCG/ACT INHALER Inhale 2 puffs every 4 hours as needed. ALENDRONATE (FOSAMAX) 70 MG TABLET Take 70 mg by mouth once a week. ASPIRIN 81 MG EC TABLET Take 81 mg by mouth. ATORVASTATIN (LIPITOR) 40 MG TABLET Take 1 tablet by mouth Nightly. BUPROPION XL (WELLBUTRIN XL) 150 MG 24 HR TABLET Take 150 mg by mouth in the morning. BUSPIRONE (BUSPAR) 15 MG TABLET Take 1 tablet (15 mg) by mouth 2 times daily. CALCITONIN (MIACALCIN) 200 UNIT/ML INJECTION Inject 0.25 mL (50 Units) into the shoulder, thigh, or buttocks daily. CALCIUM CARBONATE-CHOLECALCIFEROL (OYSTER SHELL) 250-3.125 MG-MCG TABLET Take 1 tablet by mouth. DICLOFENAC SODIUM (VOLTAREN) 1 % GEL Apply 4 g topically 2 times daily. FLUTICASONE (FLONASE) 50 MCG/ACT NASAL SPRAY 2 sprays in the morning. FLUTICASONE FUROATE-VILANTEROL (BREO ELLIPTA) 200-25 MCG/ACT AEROSOL POWDER Inhale 1 puff daily. GABAPENTIN (NEURONTIN) 600 MG TABLET Take 1 tablet by mouth daily. LIDOCAINE (LIDODERM) 5 % PATCH Apply 1 patch topically daily. Remove & discard patch within 12 hours or as directed by MD. MAGNESIUM OXIDE (MAG-OX) 400 MG TABLET 400 mg daily. MELATONIN 3 MG TABLET Take 1 tablet (3 mg) by mouth Nightly. METHOCARBAMOL (ROBAXIN) 500 MG TABLET Take 2 tablets (1,000 mg) by mouth every 8 hours as needed for muscle spasms for up to 10 days. MIRTAZAPINE (REMERON) 15 MG TABLET Take 1 tablet (15 mg) by mouth Nightly. MONTELUKAST (SINGULAIR) 10 MG TABLET Take 10 mg by mouth Nightly. NICOTINE (NICODERM, STEP 1) 21 MG/24HR PATCH Place 1 patch on the skin daily. Do not start before November 09, 2022. PAROXETINE (PAXIL) 20 MG TABLET Take 1 tablet (20 mg) by mouth every morning. TIOTROPIUM (SPIRIVA RESPIMAT) 2.5 MCG/ACT INHALER Inhale 2 puffs in the morning. ZINC 50 MG CAPSULE Take 50 mg by mouth. ALLERGIES Pollen extract FAMILY HISTORY Family History Problem Relation Name Age of Onset Colon cancer Neg Hx Ovarian cancer Neg Hx Cancer Mother breast- to liver Cancer Sister breast Cancer Father lung to brain No Known Problems Brother Uterine cancer Neg Hx SOCIAL HISTORY Social History Socioeconomic History Marital status: Tobacco Use Smoking status: Former Current packs/day: 0.00 Types: Cigarettes Quit date: 09/20/2011 Years since quittin.6 Smokeless tobacco: Never Tobacco comments: Quit smoking: pt states she quit 4-5 years ago Vaping Use Vaping status: Every Day Substances: Nicotine Devices: Refillable tank Substance and Sexual Activity Alcohol use: Not Currently Comment: Approx once a year Drug use: No Sexual activity: Defer Social Drivers of Health Financial Resource Strain: Low Risk (09/19/2023) Overall Financial Resource Strain (CARDIA) Difficulty of Paying Living Expenses: Not hard at all Food Insecurity: No Food Insecurity (09/19/2023) Hunger Vital Sign Worried About Running Out of Food in the Last Year: Never true Ran Out of Food in the Last Year: Never true Transportation Needs: No Transportation Needs (09/19/2023) PRAPARE - Transportation Lack of Transportation (Medical): No Lack of Transportation (Non-Medical): No Physical Activity: Inactive (09/19/2023) Exercise Vital Sign Days of Exercise per Week: 0 days Minutes of Exercise per Session: 0 min Stress: No Stress Concern Present (09/19/2023) [employer] [place] [employer] - Occupational Stress Questionnaire Feeling of Stress : Only a little Social Connections: Socially Isolated (09/19/2023) Social Connection and Isolation Panel [NHANES] Frequency of Communication with Friends and Family: Three times a week Frequency of Social Gatherings with Friends and Family: Three times a week Attends Judaism Services: Never Active Member of Clubs or Organizations: No Attends Club or Organization Meetings: Never Marital Status: Intimate Partner Violence: Not At Risk (09/19/2023) Humiliation, Afraid, Rape, and Kick questionnaire Fear of Current or Ex-Partner: No Emotionally Abused: No Physically Abused: No Sexually Abused: No Housing Stability: Low Risk (09/19/2023) Housing Stability Vital Sign Unable to Pay for Housing in the Last Year: No Number of Times Moved in the Last Year: 1 Homeless in the Last Year: No SCREENINGS [place] Coma Scale Best Eye Response: Spontaneous Best Verbal Response: Oriented Best Motor Response: Follows commands Angelina Coma Scale Score: 15 PHYSICAL EXAM ED Triage Vitals [04/27/24 2343] Temp Heart Rate Resp BP 36.7 C (98.1 F) 101 20 90/64 SpO2 Temp Source Heart Rate Source Patient Position (!) 92 % Oral Monitor Lying BP Location FiO2 (%) Right arm -- Physical Exam Vitals and nursing note reviewed. Constitutional: General: She is not in acute distress. Appearance: She is well-developed. HENT: Head: Normocephalic. Comments: Abrasion/contusion to the right side of the nose Mouth/Throat: Mouth: Mucous membranes are dry. Eyes: Conjunctiva/sclera: Conjunctivae normal. Cardiovascular: Rate and Rhythm: Regular rhythm. Tachycardia present. Pulmonary: Effort: Pulmonary effort is normal. No respiratory distress. Breath sounds: Normal breath sounds. Abdominal: Palpations: Abdomen is soft. Tenderness: There is no abdominal tenderness. Musculoskeletal: Cervical back: Neck supple. Comments: Tenderness to palpation and pain with range of motion of the left elbow Skin: General: Skin is warm and dry. Neurological: Mental Status: She is alert. Comments: NIHSS equals 0 Test of skew is normal Psychiatric: Mood and Affect: Mood normal. DIAGNOSTIC RESULTS Procedures/EKG: RADIOLOGY (Per Emergency Physician): Interpretation per the Radiologist below, if available at the time of this note: CT cervical spine wo IV contrast Final Result Impression: No acute process seen. CT cervical spine: Indication: Trauma and neck pain FINDINGS: Dose reduction was employed with automated exposure control. Unenhanced cervical spine performed. 3-D imaging created and reviewed on independent 3-D workstation for better detection of pathology evaluation of neural foramina. Limited by motion. Bone density:Normal. Acute lesions: No acute fracture or dislocation. Soft tissues: No soft tissue swelling. Arthritis: Degenerative changes visible. Posterior osteophytes cause neural foraminal narrowing. Limited views of skull base unremarkable. Visualized portions of lung apices Show no major volume loss.. IMPRESSION: No acute bone process. Report Dictated on Electronically Signed By: Ramses Gamble MD Electronically Signed Date/Time: 04/28/2024 12:[address] head wo IV contrast Final Result Impression: No acute process seen. CT cervical spine: Indication: Trauma and neck pain FINDINGS: Dose reduction was employed with automated exposure control. Unenhanced cervical spine performed. 3-D imaging created and reviewed on independent 3-D workstation for better detection of pathology evaluation of neural foramina. Limited by motion. Bone density:Normal. Acute lesions: No acute fracture or dislocation. Soft tissues: No soft tissue swelling. Arthritis: Degenerative changes visible. Posterior osteophytes cause neural foraminal narrowing. Limited views of skull base unremarkable. Visualized portions of lung apices Show no major volume loss.. IMPRESSION: No acute bone process. Report Dictated on Electronically Signed By: Ramses Gamble MD Electronically Signed Date/Time: 04/28/2024 12:50 AM EST XR elbow 3+ views left Final Result Findings and impression: Left elbow three views performed. Bone density is normal. No fracture or dislocation seen. Report Dictated on Electronically Signed By: Ramses Gamble MD Electronically Signed Date/Time: 04/28/2024 12:23 AM EST ED BEDSIDE ULTRASOUND: Performed by ED Physician - none LABS: Labs Reviewed CBC WITH AUTO DIFFERENTIAL - Abnormal Result Value Auto WBC 6.5 RBC 3.72 (*) Hemoglobin 11.5 (*) Hematocrit 37.3 MCV 100.3 (*) MCH 30.9 MCHC 30.8 RDW 13.2 Platelets 165 MPV 10.0 nRBC 0.0 Neutrophils Relative 77.8 Lymphocytes Relative 10.6 (*) Monocytes Relative 6.5 Eosinophils Relative 4.0 Basophils Relative 0.6 Immature Grans % 0.5 Neutrophils Absolute 5.1 Lymphocytes Absolute 0.7 (*) Monocytes Absolute 0.4 Eosinophils Absolute 0.3 Basophils Absolute 0.0 Immature Grans Absolute 0.0 BASIC METABOLIC PANEL - Abnormal SODIUM 143 POTASSIUM 3.6 CHLORIDE 102 CARBON DIOXIDE 33 (*) UREA NITROGEN 13 CREATININE 0.78 GLUCOSE 179 (*) CALCIUM 9.1 ANION GAP 8 eGFR 83.4 HIGH SENSITIVITY TROPONIN, SERIAL BASELINE - Normal Troponin HS Serial Baseline 4 MAGNESIUM - Normal MAGNESIUM 2.0 Narrative: Higher values can be expected in females during menses. HIGH SENSITIVITY TROPONIN, SERIAL, SECOND TEST All other labs were within normal range or not returned as of this dictation. EMERGENCY DEPARTMENT COURSE and DIFFERENTIAL DIAGNOSIS/MDM: Vitals: Vitals: 04/27/24 2343 04/28/24 0053 04/28/24 0054 BP: 90/64 102/70 BP Location: Right arm Right arm Patient Position: Lying Lying Pulse: 101 89 Resp: 20 15 Temp: 36.7 C (98.1 F) TempSrc: Oral SpO2: (!) 92% 96% 96% Weight: 49 kg (108 lb) Height: 1.6 m (5' 3") Diagnoses as of 04/28/24111 Contusion of face, initial encounter Medications ketorolac (Toradol) injection 15 mg (has no administration in time range) sodium chloride 0.9 % bolus 1,000 mL (1,000 mL IntraVENous New Bag 04/27/24 7215) REVAL: MDM On reassessment I talked to the patient about her test results. Her CT head and C-spine are unremarkable. Her x-ray elbow showed no acute bony abnormality. We discussed symptoms that should prompt immediate return to the emergency department. Will discharge home at this time with precautions to return for worsening or changing symptoms. CRITICAL CARE TIME CONSULTS: None PROCEDURES: Unless otherwise noted below, none Procedures Patients symptoms are consistent with sepsis, severe sepsis, or septic shock (If yes use ".sepsiscoremeasure"): No FINAL IMPRESSION 1. Contusion of face, initial encounter DISPOSITION Discharge 04/28/2024 01:11:17 AM PATIENT REFERRED TO: Herminia Case MD [address] [place] [address] DISCHARGE MEDICATIONS: New Prescriptions No medications on file (Comment: Please note this report has been produced using speech recognition software and may contain errors related to that system including errors in grammar, punctuation, and spelling, as well as words and phrases that may be inappropriate. If there are any questions or concerns please feel free to contact the dictating provider for clarification.) Flako Altamirano MD (electronically signed) Emergency Medicine Provider Flako Altamirano MD 04/28/24111 [facility] 04-06-2024 Telephone encounter Note Prescription Refill Information The patient has been identified by name and date of : Yes Caregiver verified no other encounters exist for this prescription request: Yes Caregiver confirmed with patient/requestor that no other refills are due, in the near future, with this provider at this time: Yes The last office visit in the department: 12/30/23 Does the patient have a future office visit with this provider/department: No Requested Prescriptions Pending Prescriptions Disp Refills PARoxetine (PAXIL) 40 mg tablet [Pharmacy Med Name: PAROXETINE HCL 40 MG TABLET] 90 tablet Sig: TAKE 1 TABLET BY MOUTH EVERY DAY Tate Weathers MA April 06, 2024 9:03 AM [facility] 04-06-2024 Miscellaneous Notes Prescription Refill Information The patient has been identified by name and date of : Yes Caregiver verified no other encounters exist for this prescription request: Yes Caregiver confirmed with patient/requestor that no other refills are due, in the near future, with this provider at this time: Yes The last office visit in the department: 12/30/23 Does the patient have a future office visit with this provider/department: No Requested Prescriptions Pending Prescriptions Disp Refills PARoxetine (PAXIL) 40 mg tablet [Pharmacy Med Name: PAROXETINE HCL 40 MG TABLET] 90 tablet Sig: TAKE 1 TABLET BY MOUTH EVERY DAY Tate Weathers MA April 06, 2024 9:03 AM documented in this encounter [facility] 04-02-2024 Telephone encounter Note Pt has three refills available at the pharmacy. Melva Juárez PA-C [facility] 04-02-2024 Miscellaneous Notes Pt has three refills available at the pharmacy. Melva Juárez PA-C Pharmacy verified in Epic Patient has been identified by name and date of : Yes Patient aware RX will be sent to pharmacy. No need to notify patient. Patient phones for refill(s): Requested Prescriptions Pending Prescriptions Disp Refills tiotropium bromide (SPIRIVA RESPIMAT) 2.5 mcg/actuation inhaler 3 Each 3 Date of last office visit : 09/08/2023 Date of next office visit : 03/31/2024 Last 2 Encounter Wt Readings: Date: Wt: 09/08/2023 55.5 kg (122 lb 5.7 oz) 05/02/2023 60.1 kg (132 lb 7.9 oz) Not applicable Please advise. Maria Alejandra Reno MA documented in this encounter [facility] 04-02-2024 Telephone encounter Note Pharmacy verified in [facility] Patient has been identified by name and date of : Yes Patient aware RX will be sent to pharmacy. No need to notify patient. Patient phones for refill(s): Requested Prescriptions Pending Prescriptions Disp Refills oxyCODONE-acetaminophen (PERCOCET) 5-325 mg tablet 120 tablet 0 Sig: Take 1 tablet by mouth every 6 hours as needed for pain for up to 30 days. Date of last office visit : 09/08/2023 Date of next office visit : Visit date not found Last 2 Encounter Wt Readings: Date: Wt: 09/08/2023 55.5 kg (122 lb 5.7 oz) 05/02/2023 60.1 kg (132 lb 7.9 oz) Not applicable Please advise. Maria Alejandra Reno MA [facility] 04-02-2024 Miscellaneous Notes Pharmacy verified in [facility] Patient has been identified by name and date of : Yes Patient aware RX will be sent to pharmacy. No need to notify patient. Patient phones for refill(s): Requested Prescriptions Pending Prescriptions Disp Refills oxyCODONE-acetaminophen (PERCOCET) 5-325 mg tablet 120 tablet 0 Sig: Take 1 tablet by mouth every 6 hours as needed for pain for up to 30 days. Date of last office visit : 09/08/2023 Date of next office visit : Visit date not found Last 2 Encounter Wt Readings: Date: Wt: 09/08/2023 55.5 kg (122 lb 5.7 oz) 05/02/2023 60.1 kg (132 lb 7.9 oz) Not applicable Please advise. Maria Alejandra Reno MA documented in this encounter [facility] 04-02-2024 Telephone encounter Note Pharmacy verified in Epic Patient has been identified by name and date of : Yes Patient aware RX will be sent to pharmacy. No need to notify patient. Patient phones for refill(s): Requested Prescriptions Pending Prescriptions Disp Refills tiotropium bromide (SPIRIVA RESPIMAT) 2.5 mcg/actuation inhaler 3 Each 3 Date of last office visit : 09/08/2023 Date of next office visit : 03/31/2024 Last 2 Encounter Wt Readings: Date: Wt: 09/08/2023 55.5 kg (122 lb 5.7 oz) 05/02/2023 60.1 kg (132 lb 7.9 oz) Not applicable Please advise. Maria Alejandra Reno MA [facility] 03-20-2024 Telephone encounter Note Prescription Refill Information The patient has been identified by name and date of : Yes Caregiver verified no other encounters exist for this prescription request: Yes Caregiver confirmed with patient/requestor that no other refills are due, in the near future, with this provider at this time: Yes The last office visit in the department: 09/08/2023 Does the patient have a future office visit with this provider/department: No Requested Prescriptions Pending Prescriptions Disp Refills cyclobenzaprine (FLEXERIL) 5 mg tablet [Pharmacy Med Name: CYCLOBENZAPRINE 5 MG TABLET] 30 tablet 2 Sig: TAKE 1 TABLET BY MOUTH EVERY 12 HOURS Evangelina Baltazar MA March 20, 2024 12:08 PM [facility] 03-20-2024 Miscellaneous Notes Prescription Refill Information The patient has been identified by name and date of : Yes Caregiver verified no other encounters exist for this prescription request: Yes Caregiver confirmed with patient/requestor that no other refills are due, in the near future, with this provider at this time: Yes The last office visit in the department: 09/08/2023 Does the patient have a future office visit with this provider/department: No Requested Prescriptions Pending Prescriptions Disp Refills cyclobenzaprine (FLEXERIL) 5 mg tablet [Pharmacy Med Name: CYCLOBENZAPRINE 5 MG TABLET] 30 tablet 2 Sig: TAKE 1 TABLET BY MOUTH EVERY 12 HOURS Evangelina Baltazar MA March 20, 2024 12:08 PM documented in this encounter [facility] 03-12-2024 Telephone encounter Note Pharmacy verified in [facility]. Patient has been identified by name and date of : Yes Patient aware RX will be sent to pharmacy. No need to notify patient. Patient phones for refill(s): Requested Prescriptions Pending Prescriptions Disp Refills QUEtiapine (SEROQUEL) 100 mg tablet 180 tablet 1 Sig: Take 2 tablets by mouth at bedtime as needed. Date of last office visit : 09/08/2023 Date of next office visit : Visit date not found Last 2 Encounter Wt Readings: Date: Wt: 09/08/2023 55.5 kg (122 lb 5.7 oz) 05/02/2023 60.1 kg (132 lb 7.9 oz) Not applicable Please advise. Rocio Westfall MA [facility] 03-12-2024 Miscellaneous Notes Pharmacy verified in [facility]. Patient has been identified by name and date of : Yes Patient aware RX will be sent to pharmacy. No need to notify patient. Patient phones for refill(s): Requested Prescriptions Pending Prescriptions Disp Refills QUEtiapine (SEROQUEL) 100 mg tablet 180 tablet 1 Sig: Take 2 tablets by mouth at bedtime as needed. Date of last office visit : 09/08/2023 Date of next office visit : Visit date not found Last 2 Encounter Wt Readings: Date: Wt: 09/08/2023 55.5 kg (122 lb 5.7 oz) 05/02/2023 60.1 kg (132 lb 7.9 oz) Not applicable Please advise. Rocio Westfall MA documented in this encounter [facility] 03-09-2024 Telephone encounter Note Prescription Refill Information The patient has been identified by name and date of : Yes Caregiver verified no other encounters exist for this prescription request: Yes Caregiver confirmed with patient/requestor that no other refills are due, in the near future, with this provider at this time: Yes The last office visit in the department: 12/30/23 Does the patient have a future office visit with this provider/department: No Requested Prescriptions Pending Prescriptions Disp Refills mirtazapine (REMERON) 15 mg tablet [Pharmacy Med Name: MIRTAZAPINE 15 MG TABLET] 90 tablet 0 Sig: TAKE 1 TABLET BY MOUTH EVERYDAY AT BEDTIME Christina Patel MA March 09, 2024 4:57 PM [facility] 03-09-2024 Miscellaneous Notes Prescription Refill Information The patient has been identified by name and date of : Yes Caregiver verified no other encounters exist for this prescription request: Yes Caregiver confirmed with patient/requestor that no other refills are due, in the near future, with this provider at this time: Yes The last office visit in the department: 12/30/23 Does the patient have a future office visit with this provider/department: No Requested Prescriptions Pending Prescriptions Disp Refills mirtazapine (REMERON) 15 mg tablet [Pharmacy Med Name: MIRTAZAPINE 15 MG TABLET] 90 tablet 0 Sig: TAKE 1 TABLET BY MOUTH EVERYDAY AT BEDTIME Christina Patel MA March 09, 2024 4:57 PM documented in this encounter [facility] 03-05-2024 Telephone encounter Note Patient aware, will buy over the counter. Whit Shay LPN [facility] 03-05-2024 Miscellaneous Notes Patient aware, will buy over the counter. Whit Shay LPN LM for patient to call the office. Whit Shay LPN Let patient know she can try looking for this available over the counter. Looks like she uses the diclofenac gel. Per [facility], Diclofenac Sodium is on backorder unavailable. Please advise. Whit Shay LPN documented in this encounter [facility] 03-05-2024 Telephone encounter Note Pharmacy verified in [facility] Patient has been identified by name and date of : Yes Patient aware RX will be sent to pharmacy. No need to notify patient. Patient phones for refill(s): Requested Prescriptions Pending Prescriptions Disp Refills oxyCODONE-acetaminophen (PERCOCET) 5-325 mg tablet 120 tablet 0 Sig: Take 1 tablet by mouth every 6 hours as needed for pain for up to 30 days. Date of last office visit : 09/08/2023 Date of next office visit : Visit date not found Last 2 Encounter Wt Readings: Date: Wt: 09/08/2023 55.5 kg (122 lb 5.7 oz) 05/02/2023 60.1 kg (132 lb 7.9 oz) Please advise. Silvia Trejo MA [facility] 03-05-2024 Miscellaneous Notes Pharmacy verified in [facility] Patient has been identified by name and date of : Yes Patient aware RX will be sent to pharmacy. No need to notify patient. Patient phones for refill(s): Requested Prescriptions Pending Prescriptions Disp Refills oxyCODONE-acetaminophen (PERCOCET) 5-325 mg tablet 120 tablet 0 Sig: Take 1 tablet by mouth every 6 hours as needed for pain for up to 30 days. Date of last office visit : 09/08/2023 Date of next office visit : Visit date not found Last 2 Encounter Wt Readings: Date: Wt: 09/08/2023 55.5 kg (122 lb 5.7 oz) 05/02/2023 60.1 kg (132 lb 7.9 oz) Please advise. Silvia Trejo MA documented in this encounter [facility] 03-02-2024 Telephone encounter Note LM for patient to call the office. Whit Shay LPN [facility] 03-01-2024 Telephone encounter Note Let patient know she can try looking for this available over the counter. Looks like she uses the diclofenac gel. [facility] 03-01-2024 Telephone encounter Note Per [facility], Diclofenac Sodium is on backorder unavailable. Please advise. Whit Shay LPN [facility] 02-07-2024 Telephone encounter Note Pharmacy verified in [facility] Patient has been identified by name and date of : Yes Patient aware RX will be sent to pharmacy. No need to notify patient. Pharmacy phones for refill(s): Requested Prescriptions Pending Prescriptions Disp Refills oxyCODONE-acetaminophen (PERCOCET) 5-325 mg tablet 120 tablet 0 Sig: Take 1 tablet by mouth every 6 hours as needed for pain for up to 30 days. Date of last office visit : 09/08/2023 Date of next office visit : Visit date not found Last 2 Encounter Wt Readings: Date: Wt: 09/08/2023 55.5 kg (122 lb 5.7 oz) 05/02/2023 60.1 kg (132 lb 7.9 oz) Please advise. Silvia Trejo MA [facility] 02-07-2024 Miscellaneous Notes Pharmacy verified in Epic Patient has been identified by name and date of : Yes Patient aware RX will be sent to pharmacy. No need to notify patient. Pharmacy phones for refill(s): Requested Prescriptions Pending Prescriptions Disp Refills oxyCODONE-acetaminophen (PERCOCET) 5-325 mg tablet 120 tablet 0 Sig: Take 1 tablet by mouth every 6 hours as needed for pain for up to 30 days. Date of last office visit : 09/08/2023 Date of next office visit : Visit date not found Last 2 Encounter Wt Readings: Date: Wt: 09/08/2023 55.5 kg (122 lb 5.7 oz) 05/02/2023 60.1 kg (132 lb 7.9 oz) Please advise. Silvia Trejo MA documented in this encounter [facility] 02-07-2024 Telephone encounter Note Prescription Refill Information The patient has been identified by name and date of : Yes Caregiver verified no other encounters exist for this prescription request: Yes Caregiver confirmed with patient/requestor that no other refills are due, in the near future, with this provider at this time: Yes The last office visit in the department: 09/08/2023 Does the patient have a future office visit with this provider/department: Visit date not found Requested Prescriptions Pending Prescriptions Disp Refills busPIRone (BUSPAR) 15 mg tablet 90 tablet 0 Sig: Take 1 tablet by mouth three times a day. Simran Prasad MA February 07, 2024 11:36 AM [facility] 02-07-2024 Miscellaneous Notes Prescription Refill Information The patient has been identified by name and date of : Yes Caregiver verified no other encounters exist for this prescription request: Yes Caregiver confirmed with patient/requestor that no other refills are due, in the near future, with this provider at this time: Yes The last office visit in the department: 09/08/2023 Does the patient have a future office visit with this provider/department: Visit date not found Requested Prescriptions Pending Prescriptions Disp Refills busPIRone (BUSPAR) 15 mg tablet 90 tablet 0 Sig: Take 1 tablet by mouth three times a day. Simran Prasad MA February 07, 2024 11:36 AM documented in this encounter [facility] 01-11-2024 Telephone encounter Note This was refilled earlier today. Melva Juárez PA-C [facility] 01-11-2024 Miscellaneous Notes This was refilled earlier today. Melva Juárez PA-C Prescription Refill Information The patient has been identified by name and date of : Yes Caregiver verified no other encounters exist for this prescription request: Yes Caregiver confirmed with patient/requestor that no other refills are due, in the near future, with this provider at this time: Yes The last office visit in the department: 09/08/2023 Does the patient have a future office visit with this provider/department: Yes Requested Prescriptions Pending Prescriptions Disp Refills oxyCODONE-acetaminophen (PERCOCET) 5-325 mg tablet 120 tablet 0 Sig: Take 1 tablet by mouth every 6 hours as needed for pain for up to 30 days. Evangelina Baltazar MA January 11, 2024 2:10 PM documented in this encounter [facility] 01-11-2024 Telephone encounter Note Prescription Refill Information The patient has been identified by name and date of : Yes Caregiver verified no other encounters exist for this prescription request: Yes Caregiver confirmed with patient/requestor that no other refills are due, in the near future, with this provider at this time: Yes The last office visit in the department: 09/08/2023 Does the patient have a future office visit with this provider/department: Yes Requested Prescriptions Pending Prescriptions Disp Refills oxyCODONE-acetaminophen (PERCOCET) 5-325 mg tablet 120 tablet 0 Sig: Take 1 tablet by mouth every 6 hours as needed for pain for up to 30 days. Evangelina Baltazar MA January 11, 2024 2:10 PM [facility] 01-10-2024 Telephone encounter Note Pharmacy verified in [facility]. Patient has been identified by name and date of : Yes Patient aware RX will be sent to pharmacy. No need to notify patient. Patient phones for refill(s): Requested Prescriptions Pending Prescriptions Disp Refills PARoxetine (PAXIL) 40 mg tablet 30 tablet 2 Sig: Take 1 tablet by mouth once daily. Take 1/2 tablet at bedtime for 2 weeks, then increase to full tablet QHS. Date of last office visit : 09/08/2023 Date of next office visit : Visit date not found Last 2 Encounter Wt Readings: Date: Wt: 09/08/2023 55.5 kg (122 lb 5.7 oz) 05/02/2023 60.1 kg (132 lb 7.9 oz) Not applicable Please advise. Rocio Westfall MA [facility] 01-10-2024 Miscellaneous Notes Pharmacy verified in [facility]. Patient has been identified by name and date of : Yes Patient aware RX will be sent to pharmacy. No need to notify patient. Patient phones for refill(s): Requested Prescriptions Pending Prescriptions Disp Refills PARoxetine (PAXIL) 40 mg tablet 30 tablet 2 Sig: Take 1 tablet by mouth once daily. Take 1/2 tablet at bedtime for 2 weeks, then increase to full tablet QHS. Date of last office visit : 09/08/2023 Date of next office visit : Visit date not found Last 2 Encounter Wt Readings: Date: Wt: 09/08/2023 55.5 kg (122 lb 5.7 oz) 05/02/2023 60.1 kg (132 lb 7.9 oz) Not applicable Please advise. Rocio Westfall MA documented in this encounter [facility] 01-09-2024 Telephone encounter Note Pharmacy verified in [facility]. Patient has been identified by name and date of : Yes Patient aware RX will be sent to pharmacy. No need to notify patient. Patient phones for refill(s): Requested Prescriptions Pending Prescriptions Disp Refills oxyCODONE-acetaminophen (PERCOCET) 5-325 mg tablet 120 tablet 0 Sig: Take 1 tablet by mouth every 6 hours as needed for pain for up to 30 days. Date of last office visit : 09/08/2023 Date of next office visit : Visit date not found Last 2 Encounter Wt Readings: Date: Wt: 09/08/2023 55.5 kg (122 lb 5.7 oz) 05/02/2023 60.1 kg (132 lb 7.9 oz) Not applicable Please advise. Rocio Westfall MA [facility] 01-09-2024 Miscellaneous Notes Pharmacy verified in [facility]. Patient has been identified by name and date of : Yes Patient aware RX will be sent to pharmacy. No need to notify patient. Patient phones for refill(s): Requested Prescriptions Pending Prescriptions Disp Refills oxyCODONE-acetaminophen (PERCOCET) 5-325 mg tablet 120 tablet 0 Sig: Take 1 tablet by mouth every 6 hours as needed for pain for up to 30 days. Date of last office visit : 09/08/2023 Date of next office visit : Visit date not found Last 2 Encounter Wt Readings: Date: Wt: 09/08/2023 55.5 kg (122 lb 5.7 oz) 05/02/2023 60.1 kg (132 lb 7.9 oz) Not applicable Please advise. Rocio Westfall MA documented in this encounter [facility] 01-09-2024 Telephone encounter Note Prescription Refill Information The patient has been identified by name and date of : Yes Caregiver verified no other encounters exist for this prescription request: Yes Caregiver confirmed with patient/requestor that no other refills are due, in the near future, with this provider at this time: Yes The last office visit in the department: 12/30/23 Does the patient have a future office visit with this provider/department: No Requested Prescriptions Pending Prescriptions Disp Refills cyclobenzaprine (FLEXERIL) 5 mg tablet 30 tablet 2 Sig: Take 1 tablet by mouth every 12 hours. Whit Shay LPN January 09, 2024 2:38 PM [facility] 01-09-2024 Miscellaneous Notes Prescription Refill Information The patient has been identified by name and date of : Yes Caregiver verified no other encounters exist for this prescription request: Yes Caregiver confirmed with patient/requestor that no other refills are due, in the near future, with this provider at this time: Yes The last office visit in the department: 12/30/23 Does the patient have a future office visit with this provider/department: No Requested Prescriptions Pending Prescriptions Disp Refills cyclobenzaprine (FLEXERIL) 5 mg tablet 30 tablet 2 Sig: Take 1 tablet by mouth every 12 hours. Whit Shay LPN January 09, 2024 2:38 PM documented in this encounter [facility] 01-09-2024 Telephone encounter Note Please review and advise. [facility] 01-09-2024 Miscellaneous Notes Please review and advise. documented in this encounter [facility] 01-09-2024 Telephone encounter Note Prescription Refill Information The patient has been identified by name and date of : Yes Caregiver verified no other encounters exist for this prescription request: Yes Caregiver confirmed with patient/requestor that no other refills are due, in the near future, with this provider at this time: Yes The last office visit in the department: 12/30/23 Does the patient have a future office visit with this provider/department: No Requested Prescriptions Pending Prescriptions Disp Refills fluticasone-salmeterol (ADVAIR, WIXELA) 250-50 mcg/dose inhaler [Pharmacy Med Name: FLUTICASONE-SALMETEROL 250-50] 60 Each 5 Sig: INHALE 1 PUFF INSTRUCTED TWO TIMES A DAY. RINSE AND GARGLE MOUTH WITH WATER AFTER EACH USE. Whit Shay LPN January 09, 2024 10:42 AM [facility] 01-09-2024 Miscellaneous Notes Prescription Refill Information The patient has been identified by name and date of : Yes Caregiver verified no other encounters exist for this prescription request: Yes Caregiver confirmed with patient/requestor that no other refills are due, in the near future, with this provider at this time: Yes The last office visit in the department: 12/30/23 Does the patient have a future office visit with this provider/department: No Requested Prescriptions Pending Prescriptions Disp Refills fluticasone-salmeterol (ADVAIR, WIXELA) 250-50 mcg/dose inhaler [Pharmacy Med Name: FLUTICASONE-SALMETEROL 250-50] 60 Each 5 Sig: INHALE 1 PUFF INSTRUCTED TWO TIMES A DAY. RINSE AND GARGLE MOUTH WITH WATER AFTER EACH USE. Whit Shay LPN January 09, 2024 10:42 AM documented in this encounter [facility] 12-30-2023 Note HNO ID: [id number] Author: JOAQUINA MARTINEZ APRN.AN/SSN 2 4 OPERATOR Service: ? Author Type: Nurse Practitioner Type: Progress Notes Filed: 12/30/2023 13:47 Note Text: VIRTUAL VISIT PROGRESS NOTE This is a virtual visit using [employer] Video Visit. It required patient-provider interaction for the medical decision making as documented below. I have communicated my name and active licensure. The patient's identity and physical location were verified at the time of this visit. Either the patient or their legal financial sales representative has been informed of the risks and benefits of -- and alternatives to -- treatment through a remote evaluation and consents to proceed with the evaluation remotely. Gonzalo Deluca is a 68 year old female seen for sinus infection. C/o nose running constantly, headaches, coughing crap up, running low grade fever, upwards of 99.3. Sx started 2 days ago. Breathing not real good right now because of illness. Pulse ox 92-93%. Using inhalers. If lets this go to long, gets bad quickly. Requesting steroids to help lossen up lungs and get breathing better. HISTORY REVIEWED (electronic chart updated): PAST MEDICAL HISTORY Diagnosis Date COPD (chronic obstructive pulmonary disease) (HCC) DDD (degenerative disc disease), lumbar Encounter for chronic pain management Major depression, recurrent, chronic (HCC) Osteoporosis Pulmonary nodule, right 2016 PAST SURGICAL HISTORY Procedure Laterality Date CYSTOSCOPY 01/12/2017 CYSTOSCOPY 02/11/2017 EYE SURGERY HX Right 1994 detached retina HIP SURGERY HX Left 10/2022 ORIF for fracture TUBAL LIGATION HX 1992 FAMILY HISTORY Problem Relation Age of Onset Breast Cancer Mother 65 other (lung cancer) Father Breast Cancer Sister 62 No Known Problems Brother other (negative genetic testing for breast CA) Daughter Social History Tobacco Use Smoking status: Former Current packs/day: 0.00 Average packs/day: 1.5 packs/day for 69.0 years (103.5 ttl pk-yrs) Types: Cigarettes Start date: 1971 Quit date: 2018 Years since quittin.7 Smokeless tobacco: Never Tobacco comments: vaping intermittently Vaping Use Vaping status: Never Used Substance Use Topics Alcohol use: No Drug use: No Current Outpatient Medications Medication Sig alendronate (FOSAMAX) 70 mg tablet TAKE 1 TABLET BY MOUTH ONE TIME A WEEK. albuterol HFA (PROVENTIL HFA, VENTOLIN HFA) 90 mcg/actuation inhaler Inhale 2 Puffs as instructed every 4 hours as needed for wheezing/shortness of breath. oxyCODONE-acetaminophen (PERCOCET) 5-325 mg tablet Take 1 tablet by mouth every 6 hours as needed for pain for up to 30 days. tiotropium bromide (SPIRIVA RESPIMAT) 2.5 mcg/actuation inhaler INHALE 2 PUFFS BY MOUTH ONCE DAILY DIRECTED mirtazapine (REMERON) 15 mg tablet take 1 tablet by mouth everyday at bedtime fluticasone (FLONASE) 50 mcg/actuation nasal spray spray 2 sprays into each nostril every day QUEtiapine (SEROQUEL) 100 mg tablet take 2 tablets by mouth at bedtime as needed cyclobenzaprine (FLEXERIL) 5 mg tablet take 1 tablet by mouth twice a day as needed buPROPion XL (WELLBUTRIN XL) 150 mg 24 hr tablet take 1 tablet by mouth every day fluticasone-salmeterol (ADVAIR DISKUS) 250-50 mcg/dose inhaler Inhale 1 Puff as instructed two times a day. RINSE AND GARGLE MOUTH WITH WATER AFTER EACH USE. PARoxetine (PAXIL) 40 mg tablet Take 1 tablet by mouth once daily. Take 1/2 tablet at bedtime for 2 weeks, then increase to full tablet QHS. diclofenac (VOLTAREN ARTHRITIS PAIN) 1 % topical gel Apply 2 g to affected area four times daily. montelukast (SINGULAIR) 10 mg tablet Take 10 mg by mouth daily at bedtime. diclofenac (VOLTAREN) 1 % topical gel Apply 4 g to affected area. atorvastatin (LIPITOR) 40 mg tablet TAKE 1 TABLET BY MOUTH EVERY DAY AT NIGHT Nebulizers Use as directed. albuterol (PROVENTIL) 2.5 mg /3 mL (0.083 %) nebulizer solution INHALE 3 ML VIA NEBULIZER EVERY 4 HOURS NEEDED FOR WHEEZE OR FOR SHORTNESS OF BREATH No current facility-administered medications for this visit. ALLERGIES Allergen Reactions Seasonal Allergies Intolerance REVIEW OF SYSTEMS: As noted in HPI PHYSICAL EXAMINATION: VIDEO EXAM: (if completed, performed via video enabled technology) GENERAL: alert and appropriate, in no distress and well-hydrated, well nourished OROPHARYNX: moist mucus membranes RESPIRATORY: breathing non-labored, no grunting/flaring/retractions, and moist cough throughout OV CHEST: equal chest rise with normal respiratory effort ASSESSMENT: (J43.1) Panlobular emphysema (HCC) PLAN: Start doxy and pred taper Continue maintenance and rescue meds, mucinex Oxygen cont Monitor pulse ox at home Warning signs to seek treatment for discussed Patient to f/u with persistent, new or worsening symptoms There are no Patient Instructions on file for this visit. Joaquina Rao APRN.[facility] 12-30-2023 History of Presen t illness Narrative VIRTUAL VISIT PROGRESS NOTE This is a virtual visit using [employer] Video Visit. It required patient-provider interaction for the medical decision making as documented below. I have communicated my name and active licensure. The patient's identity and physical location were verified at the time of this visit. Either the patient or their legal financial sales representative has been informed of the risks and benefits of -- and alternatives to -- treatment through a remote evaluation and consents to proceed with the evaluation remotely. Gonzalo Deluca is a 68 year old female seen for sinus infection. C/o nose running constantly, headaches, coughing crap up, running low grade fever, upwards of 99.3. Sx started 2 days ago. Breathing not real good right now because of illness. Pulse ox 92-93%. Using inhalers. If lets this go to long, gets bad quickly. Requesting steroids to help lossen up lungs and get breathing better. HISTORY REVIEWED (electronic chart updated): PAST MEDICAL HISTORY Diagnosis Date COPD (chronic obstructive pulmonary disease) (HCC) DDD (degenerative disc disease), lumbar Encounter for chronic pain management Major depression, recurrent, chronic (HCC) Osteoporosis Pulmonary nodule, right 2015 PAST SURGICAL HISTORY Procedure Laterality Date CYSTOSCOPY 01/12/2017 CYSTOSCOPY 02/11/2017 EYE SURGERY HX Right 1994 detached retina HIP SURGERY HX Left 10/2022 ORIF for fracture TUBAL LIGATION HX 1992 FAMILY HISTORY Problem Relation Age of Onset Breast Cancer Mother 65 other (lung cancer) Father Breast Cancer Sister 62 No Known Problems Brother other (negative genetic testing for breast CA) Daughter Social History Tobacco Use Smoking status: Former Current packs/day: 0.00 Average packs/day: 1.5 packs/day for 69.0 years (103.5 ttl pk-yrs) Types: Cigarettes Start date: 1971 Quit date: 2017 Years since quittin.7 Smokeless tobacco: Never Tobacco comments: vaping intermittently Vaping Use Vaping status: Never Used Substance Use Topics Alcohol use: No Drug use: No Current Outpatient Medications Medication Sig alendronate (FOSAMAX) 70 mg tablet TAKE 1 TABLET BY MOUTH ONE TIME A WEEK. albuterol HFA (PROVENTIL HFA, VENTOLIN HFA) 90 mcg/actuation inhaler Inhale 2 Puffs as instructed every 4 hours as needed for wheezing/shortness of breath. oxyCODONE-acetaminophen (PERCOCET) 5-325 mg tablet Take 1 tablet by mouth every 6 hours as needed for pain for up to 30 days. tiotropium bromide (SPIRIVA RESPIMAT) 2.5 mcg/actuation inhaler INHALE 2 PUFFS BY MOUTH ONCE DAILY DIRECTED mirtazapine (REMERON) 15 mg tablet take 1 tablet by mouth everyday at bedtime fluticasone (FLONASE) 50 mcg/actuation nasal spray spray 2 sprays into each nostril every day QUEtiapine (SEROQUEL) 100 mg tablet take 2 tablets by mouth at bedtime as needed cyclobenzaprine (FLEXERIL) 5 mg tablet take 1 tablet by mouth twice a day as needed buPROPion XL (WELLBUTRIN XL) 150 mg 24 hr tablet take 1 tablet by mouth every day fluticasone-salmeterol (ADVAIR DISKUS) 250-50 mcg/dose inhaler Inhale 1 Puff as instructed two times a day. RINSE AND GARGLE MOUTH WITH WATER AFTER EACH USE. PARoxetine (PAXIL) 40 mg tablet Take 1 tablet by mouth once daily. Take 1/2 tablet at bedtime for 2 weeks, then increase to full tablet QHS. diclofenac (VOLTAREN ARTHRITIS PAIN) 1 % topical gel Apply 2 g to affected area four times daily. montelukast (SINGULAIR) 10 mg tablet Take 10 mg by mouth daily at bedtime. diclofenac (VOLTAREN) 1 % topical gel Apply 4 g to affected area. atorvastatin (LIPITOR) 40 mg tablet TAKE 1 TABLET BY MOUTH EVERY DAY AT NIGHT Nebulizers Use as directed. albuterol (PROVENTIL) 2.5 mg /3 mL (0.083 %) nebulizer solution INHALE 3 ML VIA NEBULIZER EVERY 4 HOURS NEEDED FOR WHEEZE OR FOR SHORTNESS OF BREATH No current facility-administered medications for this visit. ALLERGIES Allergen Reactions Seasonal Allergies Intolerance REVIEW OF SYSTEMS: As noted in HPI PHYSICAL EXAMINATION: VIDEO EXAM: (if completed, performed via video enabled technology) GENERAL: alert and appropriate, in no distress and well-hydrated, well nourished OROPHARYNX: moist mucus membranes RESPIRATORY: breathing non-labored, no grunting/flaring/retractions, and moist cough throughout OV CHEST: equal chest rise with normal respiratory effort ASSESSMENT: (J43.1) Panlobular emphysema (HCC) PLAN: Start doxy and pred taper Continue maintenance and rescue meds, mucinex Oxygen cont Monitor pulse ox at home Warning signs to seek treatment for discussed Patient to f/u with persistent, new or worsening symptoms There are no Patient Instructions on file for this visit. Joaquina Rao APRN.AN/SSN 2 4 OPERATOR documented in this encounter [facility] 12-27-2023 Telephone encounter Note Request completed and faxed. [facility] 12-27-2023 Miscellaneous Notes Request completed and faxed. Type of letter/form/fax request - Home Health Care Orders Form received from [facility] on 12/26/23 floor and placed on MD desk () for completion. Completed form needs to be faxed to [phone]. Route to [place] when form completed for processing documented in this encounter [facility] 12-27-2023 Telephone encounter Note Type of letter/form/fax request - Home Health Care Orders Form received from [facility] on 12/26/23 floor and placed on MD desk () for completion. Completed form needs to be faxed to [phone]. Route to [place] when form completed for processing [facility] 12-27-2023 Telephone encounter Note Prescription Refill Information The patient has been identified by name and date of : Yes Caregiver verified no other encounters exist for this prescription request: Yes Caregiver confirmed with patient/requestor that no other refills are due, in the near future, with this provider at this time: Yes The last office visit in the department: 09/08/23 Does the patient have a future office visit with this provider/department: No Requested Prescriptions Pending Prescriptions Disp Refills alendronate (FOSAMAX) 70 mg tablet [Pharmacy Med Name: ALENDRONATE SODIUM 70 MG TAB] 4 tablet 11 Sig: TAKE 1 TABLET BY MOUTH ONE TIME A WEEK. Danyelle Contreras LPN December 27, 2023 10:41 AM [facility] 12-27-2023 Miscellaneous Notes Prescription Refill Information The patient has been identified by name and date of : Yes Caregiver verified no other encounters exist for this prescription request: Yes Caregiver confirmed with patient/requestor that no other refills are due, in the near future, with this provider at this time: Yes The last office visit in the department: 09/08/23 Does the patient have a future office visit with this provider/department: No Requested Prescriptions Pending Prescriptions Disp Refills alendronate (FOSAMAX) 70 mg tablet [Pharmacy Med Name: ALENDRONATE SODIUM 70 MG TAB] 4 tablet 11 Sig: TAKE 1 TABLET BY MOUTH ONE TIME A WEEK. Danyelle Contreras LPN December 27, 2023 10:41 AM documented in this encounter [facility] 12-14-2023 Telephone encounter Note Prescription Refill Information The patient has been identified by name and date of : Yes Caregiver verified no other encounters exist for this prescription request: Yes Caregiver confirmed with patient/requestor that no other refills are due, in the near future, with this provider at this time: Yes The last office visit in the department: 09/08/23 Does the patient have a future office visit with this provider/department: No Requested Prescriptions Pending Prescriptions Disp Refills albuterol HFA (PROVENTIL HFA, VENTOLIN HFA) 90 mcg/actuation inhaler 18 g 5 Sig: Inhale 2 Puffs as instructed every 4 hours as needed for wheezing/shortness of breath. oxyCODONE-acetaminophen (PERCOCET) 5-325 mg tablet 120 tablet 0 Sig: Take 1 tablet by mouth every 6 hours as needed for pain for up to 30 days. Whit Shay LPN December 14, 2023 9:21 AM [facility] 12-14-2023 Miscellaneous Notes Prescription Refill Information The patient has been identified by name and date of : Yes Caregiver verified no other encounters exist for this prescription request: Yes Caregiver confirmed with patient/requestor that no other refills are due, in the near future, with this provider at this time: Yes The last office visit in the department: 09/08/23 Does the patient have a future office visit with this provider/department: No Requested Prescriptions Pending Prescriptions Disp Refills albuterol HFA (PROVENTIL HFA, VENTOLIN HFA) 90 mcg/actuation inhaler 18 g 5 Sig: Inhale 2 Puffs as instructed every 4 hours as needed for wheezing/shortness of breath. oxyCODONE-acetaminophen (PERCOCET) 5-325 mg tablet 120 tablet 0 Sig: Take 1 tablet by mouth every 6 hours as needed for pain for up to 30 days. Whit Shay LPN December 14, 2023 9:21 AM documented in this encounter [facility] 12-14-2023 Telephone encounter Note Request completed and faxed. [facility] 12-14-2023 Miscellaneous Notes Request completed and faxed. Done. Type of letter/form/fax request - Home Health Care Orders Form received from [facility] on 12/12/23 floor and placed on MD desk () for completion. Completed form needs to be faxed to [phone]. Route to [place] when form completed for processing documented in this encounter [facility] 12-13-2023 Telephone encounter Note Done. [facility] 12-13-2023 Telephone encounter Note Type of letter/form/fax request - Home Health Care Orders Form received from [facility] on 12/12/23 floor and placed on desk () for completion. Completed form needs to be faxed to [phone]. Route to [place] when form completed for processing [facility] 12-08-2023 Telephone encounter Note Home care Certification Form [address] [facility]. For cert dates 11/25/23 to 01/23/24 that were signed on 12/06/23. Recertification Patient's home health 485 form / care plan for stated certification period reviewed and signed. Relevant medical records were reviewed. No changes were indicated [facility] 12-08-2023 Miscellaneous Notes Home care Certification Form [address] [facility]. For cert dates 11/25/23 to 01/23/24 that were signed on 12/06/23. Recertification Patient's home health 485 form / care plan for stated certification period reviewed and signed. Relevant medical records were reviewed. No changes were indicated documented in this encounter [facility] 12-06-2023 Telephone encounter Note Request completed and faxed. [facility] 12-06-2023 Miscellaneous Notes Request completed and faxed. Done. Type of letter/form/fax request - Home Health Care Orders Plan of Care Certification Period-11/25/23 to 01/23/[address] [facility] on 12/01/23 floor and placed on MD desk () for completion. Completed form needs to be faxed to [phone]. Route to [place] when form completed for processing documented in this encounter [facility] 12-06-2023 Telephone encounter Note Done. [facility] 12-06-2023 Telephone encounter Note Type of letter/form/fax request - Home Health Care Orders Plan of Care Certification Period-11/25/23 to 01/23/[address] [facility] on 12/01/23 floor and placed on MD desk () for completion. Completed form needs to be faxed to [phone]. Route to [place] when form completed for processing [facility] 11-28-2023 Telephone encounter Note Pharmacy verified in [facility] Patient has been identified by name and date of : Yes Patient aware RX will be sent to pharmacy. No need to notify patient. Pharmacy phones for refill(s): Requested Prescriptions Pending Prescriptions Disp Refills SPIRIVA RESPIMAT 2.5 mcg/actuation inhaler [Pharmacy Med Name: SPIRIVA RESPIMAT 2.5 MCG INH] 4 Sig: INHALE 2 PUFFS BY MOUTH ONCE DAILY DIRECTED Date of last office visit : 09/08/2023 Date of next office visit : Visit date not found Last 2 Encounter Wt Readings: Date: Wt: 09/08/2023 55.5 kg (122 lb 5.7 oz) 05/02/2023 60.1 kg (132 lb 7.9 oz) Please advise. Silvia Trejo MA [facility] 11-28-2023 Miscellaneous Notes Pharmacy verified in [facility] Patient has been identified by name and date of : Yes Patient aware RX will be sent to pharmacy. No need to notify patient. Pharmacy phones for refill(s): Requested Prescriptions Pending Prescriptions Disp Refills SPIRIVA RESPIMAT 2.5 mcg/actuation inhaler [Pharmacy Med Name: SPIRIVA RESPIMAT 2.5 MCG INH] 4 Sig: INHALE 2 PUFFS BY MOUTH ONCE DAILY DIRECTED Date of last office visit : 09/08/2023 Date of next office visit : Visit date not found Last 2 Encounter Wt Readings: Date: Wt: 09/08/2023 55.5 kg (122 lb 5.7 oz) 05/02/2023 60.1 kg (132 lb 7.9 oz) Please advise. Silvia Trejo MA documented in this encounter [facility] 11-14-2023 Telephone encounter Note Pharmacy verified in [facility]. Patient has been identified by name and date of : Yes Patient aware RX will be sent to pharmacy. No need to notify patient. Patient phones for refill(s): Requested Prescriptions Pending Prescriptions Disp Refills oxyCODONE-acetaminophen (PERCOCET) 5-325 mg tablet 120 tablet 0 Sig: Take 1 tablet by mouth every 6 hours as needed for pain for up to 30 days. Date of last office visit : 09/08/2023 Date of next office visit : Visit date not found Last 2 Encounter Wt Readings: Date: Wt: 09/08/2023 55.5 kg (122 lb 5.7 oz) 05/02/2023 60.1 kg (132 lb 7.9 oz) Not applicable Please advise. Rocio Westfall MA [facility] 11-14-2023 Miscellaneous Notes Pharmacy verified in [facility]. Patient has been identified by name and date of : Yes Patient aware RX will be sent to pharmacy. No need to notify patient. Patient phones for refill(s): Requested Prescriptions Pending Prescriptions Disp Refills oxyCODONE-acetaminophen (PERCOCET) 5-325 mg tablet 120 tablet 0 Sig: Take 1 tablet by mouth every 6 hours as needed for pain for up to 30 days. Date of last office visit : 09/08/2023 Date of next office visit : Visit date not found Last 2 Encounter Wt Readings: Date: Wt: 09/08/2023 55.5 kg (122 lb 5.7 oz) 05/02/2023 60.1 kg (132 lb 7.9 oz) Not applicable Please advise. Rocio Westfall MA documented in this encounter [facility] 11-14-2023 Telephone encounter Note Request completed and faxed. [facility] 11-14-2023 Miscellaneous Notes Request completed and faxed. Done. Type of letter/form/fax request - Home Health Care Orders Form received from [facility] on 11/13/23 floor and placed on MD desk () for completion. Completed form needs to be faxed to . Route to [place] when form completed for processing documented in this encounter [facility] 11-14-2023 Telephone encounter Note Done. [facility] 11-14-2023 Telephone encounter Note Type of letter/form/fax request - Home Health Care Orders Form received from [facility] on 11/13/23 floor and placed on MD desk () for completion. Completed form needs to be faxed to . Route to [place] when form completed for processing [facility] 11-12-2023 Telephone encounter Note Prescription Refill Information The patient has been identified by name and date of : Yes Caregiver verified no other encounters exist for this prescription request: Yes Caregiver confirmed with patient/requestor that no other refills are due, in the near future, with this provider at this time: Yes The last office visit in the department: 09/08/23 Does the patient have a future office visit with this provider/department: No Requested Prescriptions Pending Prescriptions Disp Refills mirtazapine (REMERON) 15 mg tablet [Pharmacy Med Name: MIRTAZAPINE 15 MG TABLET] 90 tablet 0 Sig: take 1 tablet by mouth everyday at bedtime Whit Shay LPN November 12, 2023 10:33 AM [facility] 11-12-2023 Miscellaneous Notes Prescription Refill Information The patient has been identified by name and date of : Yes Caregiver verified no other encounters exist for this prescription request: Yes Caregiver confirmed with patient/requestor that no other refills are due, in the near future, with this provider at this time: Yes The last office visit in the department: 09/08/23 Does the patient have a future office visit with this provider/department: No Requested Prescriptions Pending Prescriptions Disp Refills mirtazapine (REMERON) 15 mg tablet [Pharmacy Med Name: MIRTAZAPINE 15 MG TABLET] 90 tablet 0 Sig: take 1 tablet by mouth everyday at bedtime Whit Shay LPN November 12, 2023 10:33 AM documented in this encounter [facility] 11-02-2023 Telephone encounter Note Prescription Refill Information The patient has been identified by name and date of : Yes Caregiver verified no other encounters exist for this prescription request: Yes Caregiver confirmed with patient/requestor that no other refills are due, in the near future, with this provider at this time: Yes The last office visit in the department: 09/08/2023 Does the patient have a future office visit with this provider/department: Visit date not found Requested Prescriptions Pending Prescriptions Disp Refills fluticasone (FLONASE) 50 mcg/actuation nasal spray [Pharmacy Med Name: FLUTICASONE PROP 50 MCG SPRAY] 48 mL 3 Sig: spray 2 sprays into each nostril every day Simran Prasad MA November 02, 2023 8:23 AM [facility] 11-02-2023 Miscellaneous Notes Prescription Refill Information The patient has been identified by name and date of : Yes Caregiver verified no other encounters exist for this prescription request: Yes Caregiver confirmed with patient/requestor that no other refills are due, in the near future, with this provider at this time: Yes The last office visit in the department: 09/08/2023 Does the patient have a future office visit with this provider/department: Visit date not found Requested Prescriptions Pending Prescriptions Disp Refills fluticasone (FLONASE) 50 mcg/actuation nasal spray [Pharmacy Med Name: FLUTICASONE PROP 50 MCG SPRAY] 48 mL 3 Sig: spray 2 sprays into each nostril every day Simran Prasad MA November 02, 2023 8:23 AM documented in this encounter [facility] 10-28-2023 Telephone encounter Note Request completed and faxed. [facility] 10-28-2023 Miscellaneous Notes Request completed and faxed. Done. Type of letter/form/fax request - Home Health Care Orders Form received from [facility] on 10/27/23 floor and placed on MD desk () for completion. Completed form needs to be faxed to [phone]. Route to [place] when form completed for processing documented in this encounter [facility] 10-28-2023 Telephone encounter Note Done. [facility] 10-28-2023 Telephone encounter Note Type of letter/form/fax request - Home Health Care Orders Form received from [facility] on 10/27/23 floor and placed on MD desk () for completion. Completed form needs to be faxed to [phone]. Route to [place] when form completed for processing [facility] 10-24-2023 Telephone encounter Note Noted. Melva Juárez PA-C [facility] 10-24-2023 Miscellaneous Notes Noted. Melva Juárez PA-C Summary: Patient Update [facility] PT called to report that patient cancelled her PT appointment today. documented in this encounter [facility] 10-22-2023 Telephone encounter Note Summary: Patient Update [facility] PT called to report that patient cancelled her PT appointment today. [facility] 10-18-2023 Telephone encounter Note Request completed and faxed. [facility] 10-18-2023 Miscellaneous Notes Request completed and faxed. Type of letter/form/fax request - Home Health Care Orders Form received from [facility] on 10/18/23 floor and placed on MD desk () for completion. Completed form needs to be faxed to [phone]. Route to [place] when form completed for processing documented in this encounter [facility] 10-18-2023 Telephone encounter Note Type of letter/form/fax request - Home Health Care Orders Form received from [facility] on 10/18/23 floor and placed on MD desk () for completion. Completed form needs to be faxed to [phone]. Route to [place] when form completed for processing [facility] 10-16-2023 Hospital Discharg e instructions Janneth Hartley PA-C - 10/16/2023 9:52 PM EDT Continue take your home medications as prescribed, and use lidocaine patches. Do the incentive spirometer for 10 breaths every 2 hours while awake. Return to ER if experiencing any worsening symptoms The following attachments cannot be sent through Care Everywhere.Preventing Falls ED ([place])Acute Pain, Adult ([place])documented in this encounter [facility] 10-16-2023 Emergency department Note Emergency Department Encounter [facility] ED Patient: Gonzalo Deluca : 1955 Date of Evaluation: 10/16/2023 ED LIN[facility] Provider: Janneth Hartley PA-C Patient seen independently within my scope of practice with an Emergency Medicine attending available for supervision. Chief Complaint: Chief Complaint Patient presents with Fall Pt arrived by EMS from home from falling backwards over the vacuum. Pt denies hitting head. Pt states her left side and left leg hurts. Pt states the pain is an 8/10. History of Present Illness: Gonzalo Deluca is a 67 y.o. female who presented to the emergency department for evaluation of fall. Patient states he tripped over a vacuum, fell on her left side. Patient states she is having pain in her left hip, left flank. Did not hit her head or lose consciousness. Denies any nausea or vomiting.. Nursing notes were reviewed. Limitations to history: Outside historians: Review of Systems: Positives and pertinent negatives as per HPI. All other systems were reviewed and are acutely negative except as noted. Past History: Past Medical History: Diagnosis Date Abnormal stress test Acute exacerbation of chronic obstructive pulmonary disease (HCC) 04/12/2018 Allergic rhinitis Arthritis Asthma Bronchitis Cancer (CMS/HCC) (HCC) skin Cervical cancer (CMS/HCC) ([facility]) Chest pain COPD (chronic obstructive pulmonary disease) ([facility]) USE OXYGEN 3 L AT NIGHT DDD (degenerative disc disease), cervical Defect, retina, with detachment right DJD (degenerative joint disease), lumbar Emphysema lung ([facility]) Former smoker Hematuria SCHEDULED FOR THE PROCEDURE /SURGERY ON 02/11/2017 Hypokalemia Lung nodules Near syncope 09/19/2023 Osteoporosis Palpitations Pneumonia Recurrent major depression ([facility]) Sciatica Thoracic compression fracture ([facility]) Vitamin D deficiency Past Surgical History: Procedure Laterality Date CYSTOSCOPY 01/12/2017 OFFICE PROCEDURE CYSTOSCOPY 02/11/2017 C&P bladder biopsy EYE SURGERY detached retina 1994 HYSTERECTOMY 11/06/2019 ABDOMINAL RADICAL HYSTERECTOMY WITH BSO AND PELVIC LYMPH; DR. ZIYAD MENENDEZ [facility] OTHER SURGICAL HISTORY Left 12/19/2019 Med Port POWER Regular Size OTHER SURGICAL HISTORY Left 11/07/2022 Percutaneous skeltal fixation femoral fracture TUBAL LIGATION 1992 Social History Socioeconomic History Marital status: Tobacco Use Smoking status: Former Current packs/day: 0.00 Types: Cigarettes Quit date: 09/20/2011 Years since quittin.0 Smokeless tobacco: Never Tobacco comments: Quit smoking: pt states she quit 4-5 years ago Vaping Use Vaping status: Every Day Substances: Nicotine Devices: Refillable tank Substance and Sexual Activity Alcohol use: Not Currently Comment: Approx once a year Drug use: No Sexual activity: Defer Social Determinants of Health Financial Resource Strain: Low Risk (09/19/2023) Overall Financial Resource Strain (CARDIA) Difficulty of Paying Living Expenses: Not hard at all Food Insecurity: No Food Insecurity (09/19/2023) Hunger Vital Sign Worried About Running Out of Food in the Last Year: Never true Ran Out of Food in the Last Year: Never true Transportation Needs: No Transportation Needs (09/19/2023) PRAPARE - Transportation Lack of Transportation (Medical): No Lack of Transportation (Non-Medical): No Physical Activity: Inactive (09/19/2023) Exercise Vital Sign Days of Exercise per Week: 0 days Minutes of Exercise per Session: 0 min Stress: No Stress Concern Present (09/19/2023) [employer] [place] [employer] Occupational Health - Occupational Stress Questionnaire Feeling of Stress : Only a little Social Connections: Socially Isolated (09/19/2023) Social Connection and Isolation Panel [NHANES] Frequency of Communication with Friends and Family: Three times a week Frequency of Social Gatherings with Friends and Family: Three times a week Attends Judaism Services: Never Active Member of Clubs or Organizations: No Attends Club or Organization Meetings: Never Marital Status: Intimate Partner Violence: Not At Risk (09/19/2023) Humiliation, Afraid, Rape, and Kick questionnaire Fear of Current or Ex-Partner: No Emotionally Abused: No Physically Abused: No Sexually Abused: No Housing Stability: Low Risk (09/19/2023) Housing Stability Vital Sign Unable to Pay for Housing in the Last Year: No Number of Times Moved in the Last Year: 1 Homeless in the Last Year: No Medications/Allergies: Previous Medications ALBUTEROL 108 (90 BASE) MCG/ACT INHALER Inhale 2 puffs every 4 hours as needed. ALENDRONATE (FOSAMAX) 70 MG TABLET Take 70 mg by mouth once a week. ASPIRIN 81 MG EC TABLET Take 81 mg by mouth. ATORVASTATIN (LIPITOR) 40 MG TABLET Take 1 tablet by mouth Nightly. BUPROPION XL (WELLBUTRIN XL) 150 MG 24 HR TABLET Take 150 mg by mouth in the morning. BUSPIRONE (BUSPAR) 15 MG TABLET Take 1 tablet (15 mg) by mouth 2 times daily. CALCITONIN (MIACALCIN) 200 UNIT/ML INJECTION Inject 0.25 mL (50 Units) into the shoulder, thigh, or buttocks daily. CALCIUM CARBONATE-CHOLECALCIFEROL (OYSTER SHELL) 250-3.125 MG-MCG TABLET Take 1 tablet by mouth. CHOLECALCIFEROL (VITAMIN D-3) 25 MCG (1000 UT) TABLET Take 1 tablet (1,000 Units) by mouth daily. DICLOFENAC SODIUM (VOLTAREN) 1 % GEL Apply 4 g topically 2 times daily. FLUTICASONE (FLONASE) 50 MCG/ACT NASAL SPRAY 2 sprays in the morning. FLUTICASONE FUROATE-VILANTEROL (BREO ELLIPTA) 200-25 MCG/ACT AEROSOL POWDER Inhale 1 puff daily. GABAPENTIN (NEURONTIN) 600 MG TABLET Take 1 tablet by mouth daily. MAGNESIUM OXIDE (MAG-OX) 400 MG TABLET 400 mg daily. MELATONIN 3 MG TABLET Take 1 tablet (3 mg) by mouth Nightly. MIRTAZAPINE (REMERON) 15 MG TABLET Take 1 tablet (15 mg) by mouth Nightly. MONTELUKAST (SINGULAIR) 10 MG TABLET Take 10 mg by mouth Nightly. NICOTINE (NICODERM, STEP 1) 21 MG/24HR PATCH Place 1 patch on the skin daily. Do not start before November 09, 2022. PAROXETINE (PAXIL) 20 MG TABLET Take 1 tablet (20 mg) by mouth every morning. SENNA-DOCUSATE SODIUM (SENOKOT-S) 8.6-50 MG TABLET Take 1 tablet by mouth Nightly. TIOTROPIUM (SPIRIVA RESPIMAT) 2.5 MCG/ACT INHALER Inhale 2 puffs in the morning. ZINC 50 MG CAPSULE Take 50 mg by mouth. Allergies Allergen Reactions Pollen Extract Unknown Physical Exam: ED Triage Vitals [10/16/231917] Temp Heart Rate Resp BP 36.5 C (97.7 F) (!) 113 20 113/83 SpO2 Temp Source Heart Rate Source Patient Position (!) 91 % Oral Monitor -- BP Location FiO2 (%) -- -- Physical Exam Vitals and nursing note reviewed. Constitutional: General: She is not in acute distress. Appearance: She is well-developed. HENT: Head: Normocephalic and atraumatic. Mouth/Throat: Mouth: Mucous membranes are moist. Eyes: Conjunctiva/sclera: Conjunctivae normal. Cardiovascular: Rate and Rhythm: Normal rate and regular rhythm. Pulses: Dorsalis pedis pulses are 2+ on the right side and 2+ on the left side. Heart sounds: No murmur heard. Pulmonary: Effort: Pulmonary effort is normal. No respiratory distress. Breath sounds: Normal breath sounds. Chest: Chest wall: Tenderness present. Comments: Tenderness to left posterior ribs, there is no flail chest, ecchymosis or crepitus Abdominal: Palpations: Abdomen is soft. Tenderness: There is no abdominal tenderness. Musculoskeletal: General: No swelling. Cervical back: Neck supple. Right hip: Normal. Left hip: Tenderness present. No deformity. Normal range of motion. Right upper leg: Normal. Left upper leg: Normal. Comments: Tenderness to left hip, normal range of motion Skin: General: Skin is warm and dry. Capillary Refill: Capillary refill takes less than 2 seconds. Neurological: General: No focal deficit present. Mental Status: She is alert and oriented to person, place, and time. Sensory: No sensory deficit. Motor: No weakness. Psychiatric: Mood and Affect: Mood normal. Screenings: Patients symptoms are consistent with sepsis, severe sepsis, or septic shock (If yes use ".sepsiscoremeasure"): Diagnostics: Labs: Labs Reviewed - No data to display Radiographs: XR hip left 2 or 3 views Final Result FINDINGS/IMPRESSION: Limitations: Limited by suspected osseous demineralization and overlying bowel gas as well as patient positioning 3 cannulated screws traverse a subcapital left femoral neck fracture. Appearance is overall similar to prior study. No acute fracture or dislocation. Osteoarthritis right and left hip. Degenerative changes in the sacroiliac joints. Degenerative spondylosis in the visualized lumbar spine Report Dictated on Electronically Signed By: Osiel Kwon MD Electronically Signed Date/Time: 10/16/2023 8:[address] chest wo IV contrast Final Result 1. Severe emphysema with scattered areas of bronchiectasis and bronchial wall thickening as well as mucous plugging. Scattered centrilobular and branching nodular opacities suggests small airways disease/infection. Findings have demonstrated a waxing and waning appearance on prior studies. No pneumothorax or pleural effusions. 2. Osseous demineralization. Redemonstration of multiple compression fracture deformities most of which have been present on prior studies. Mild compression fracture deformity, inferior endplate T10 appears new from prior studies. Report Dictated on Electronically Signed By: Osiel Kwon MD Electronically Signed Date/Time: 10/16/2023 9:11 PM EDT Procedures: Procedures EKG: All EKG's are interpreted by the Emergency Department Physician in the absence of a turntable engineer. Please see Epiphany for interpretation of EKG. Emergency Department Course and Medical Decision Making In brief, Gonzalo Deluca is a 67 y.o. female who presented to the emergency department for evaluation of fall. Physical exam as above, patient nontoxic in appearance. Vital signs upon arrival are normal External records reviewed: CT imaging was obtained, patient did not hit her head or lose consciousness, x-ray of the left hip was obtained which showed no acute fracture or dislocation, similar to previous study. CT chest shows severe emphysema scattered area of bronchiectasis and bronchial wall thickening and mucous plugging, findings to demonstrate a waxing waning appearance in previous studies, no pneumothorax. Has multiple compression fractures which is chronic, but there is a mild compression deformity at T10, appears to be new. Patient ambulated without difficulty, states her pain is improved. Will be discharged home and follow-up with her doctor I estimate there is LOW risk for intracranial hemorrhage or edema, subdural or epidural hematoma, cauda equina or central cord syndrome, cord compression, compartment syndrome, tendon or neurovascular injury, pneumothorax, hemothorax, pericardial tamponade, cardiac contusion, thoracic aortic dissection, intra-abdominal injury or perforated bowel, thus I consider the discharge disposition reasonable. Gonzalo Deluca and myself have engaged in Shared Decision Making to ensure adequate and appropriate information was provided to Gonzalo Deluca to assist them in choosing a course of treatment based on their own preferences and concerns. MDM elements: Diagnostic tests considered but not performed: Diagnostics interpreted by me: Discussions with other clinicians: Chronic conditions impacting care: Social determinants of health affecting care: . ED Medications managed: Medications Lidocaine 4 % patch 1 patch (1 patch TransDERmal Medication Applied 10/16/232000) oxyCODONE-acetaminophen (Percocet) 5-325 MG per tablet 1 tablet (1 tablet Oral Given 10/16/232000) Prescription drugs considered: Critical Care: None Consults: None FINAL IMPRESSION 1. Fall, initial encounter 2. Compression fracture of body of thoracic vertebra (HCC) DISPOSITION: Discharge 10/16/2023 09:51:31 PM PATIENT REFERRED TO: Herminia Case MD [address] [place] [id number] Call [facility] [id number] Go to If symptoms worsen DISCHARGE MEDICATIONS: New Prescriptions LIDOCAINE (LIDODERM) 5 % PATCH Apply 1 patch topically daily. Remove & discard patch within 12 hours or as directed by . METHOCARBAMOL (ROBAXIN) 500 MG TABLET Take 2 tablets (1,000 mg) by mouth every 8 hours as needed for muscle spasms for up to 10 days. Janneth Hartley PA-C [facility] Janneth Hartley PA-C 10/16/232151 documented in this encounter [facility] 10-16-2023 Physician Emergency department Note Emergency Department Encounter [facility] ED Patient: Gonzalo Deluca : 1955 Date of Evaluation: 10/16/2023 ED LINDA Provider: Janneth Hartley PA-C Patient seen independently within my scope of practice with an Emergency Medicine attending available for supervision. Chief Complaint: Chief Complaint Patient presents with Fall Pt arrived by EMS from home from falling backwards over the vacuum. Pt denies hitting head. Pt states her left side and left leg hurts. Pt states the pain is an 8/10. History of Present Illness: Gonzalo Deluca is a 67 y.o. female who presented to the emergency department for evaluation of fall. Patient states he tripped over a vacuum, fell on her left side. Patient states she is having pain in her left hip, left flank. Did not hit her head or lose consciousness. Denies any nausea or vomiting.. Nursing notes were reviewed. Limitations to history: Outside historians: Review of Systems: Positives and pertinent negatives as per HPI. All other systems were reviewed and are acutely negative except as noted. Past History: Past Medical History: Diagnosis Date Abnormal stress test Acute exacerbation of chronic obstructive pulmonary disease (HCC) 04/12/2018 Allergic rhinitis Arthritis Asthma Bronchitis Cancer (CMS/HCC) (HCC) skin Cervical cancer (CMS/HCC) (HCC) Chest pain COPD (chronic obstructive pulmonary disease) (HCC) USE OXYGEN 3 L AT NIGHT DDD (degenerative disc disease), cervical Defect, retina, with detachment right DJD (degenerative joint disease), lumbar Emphysema lung (HCC) Former smoker Hematuria SCHEDULED FOR THE PROCEDURE /SURGERY ON 02/11/2017 Hypokalemia Lung nodules Near syncope 09/19/2023 Osteoporosis Palpitations Pneumonia Recurrent major depression ([facility]) Sciatica Thoracic compression fracture ([facility]) Vitamin D deficiency Past Surgical History: Procedure Laterality Date CYSTOSCOPY 01/12/2017 OFFICE PROCEDURE CYSTOSCOPY 02/11/2017 C&P bladder biopsy EYE SURGERY detached retina 1994 HYSTERECTOMY 11/06/2019 ABDOMINAL RADICAL HYSTERECTOMY WITH BSO AND PELVIC LYMPH; DR. ZIYAD MENENDEZ [facility] OTHER SURGICAL HISTORY Left 12/19/2019 Med Port POWER Regular Size OTHER SURGICAL HISTORY Left 11/07/2022 Percutaneous skeltal fixation femoral fracture TUBAL LIGATION 1992 Social History Socioeconomic History Marital status: Tobacco Use Smoking status: Former Current packs/day: 0.00 Types: Cigarettes Quit date: 09/20/2011 Years since quittin.0 Smokeless tobacco: Never Tobacco comments: Quit smoking: pt states she quit 4-5 years ago Vaping Use Vaping status: Every Day Substances: Nicotine Devices: Refillable tank Substance and Sexual Activity Alcohol use: Not Currently Comment: Approx once a year Drug use: No Sexual activity: Defer Social Determinants of Health Financial Resource Strain: Low Risk (09/19/2023) Overall Financial Resource Strain (CARDIA) Difficulty of Paying Living Expenses: Not hard at all Food Insecurity: No Food Insecurity (09/19/2023) Hunger Vital Sign Worried About Running Out of Food in the Last Year: Never true Ran Out of Food in the Last Year: Never true Transportation Needs: No Transportation Needs (09/19/2023) PRAPARE - Transportation Lack of Transportation (Medical): No Lack of Transportation (Non-Medical): No Physical Activity: Inactive (09/19/2023) Exercise Vital Sign Days of Exercise per Week: 0 days Minutes of Exercise per Session: 0 min Stress: No Stress Concern Present (09/19/2023) [employer] [place] [employer] - Occupational Stress Questionnaire Feeling of Stress : Only a little Social Connections: Socially Isolated (09/19/2023) Social Connection and Isolation Panel [NHANES] Frequency of Communication with Friends and Family: Three times a week Frequency of Social Gatherings with Friends and Family: Three times a week Attends Judaism Services: Never Active Member of Clubs or Organizations: No Attends Club or Organization Meetings: Never Marital Status: Intimate Partner Violence: Not At Risk (09/19/2023) Humiliation, Afraid, Rape, and Kick questionnaire Fear of Current or Ex-Partner: No Emotionally Abused: No Physically Abused: No Sexually Abused: No Housing Stability: Low Risk (09/19/2023) Housing Stability Vital Sign Unable to Pay for Housing in the Last Year: No Number of Times Moved in the Last Year: 1 Homeless in the Last Year: No Medications/Allergies: Previous Medications ALBUTEROL 108 (90 BASE) MCG/ACT INHALER Inhale 2 puffs every 4 hours as needed. ALENDRONATE (FOSAMAX) 70 MG TABLET Take 70 mg by mouth once a week. ASPIRIN 81 MG EC TABLET Take 81 mg by mouth. ATORVASTATIN (LIPITOR) 40 MG TABLET Take 1 tablet by mouth Nightly. BUPROPION XL (WELLBUTRIN XL) 150 MG 24 HR TABLET Take 150 mg by mouth in the morning. BUSPIRONE (BUSPAR) 15 MG TABLET Take 1 tablet (15 mg) by mouth 2 times daily. CALCITONIN (MIACALCIN) 200 UNIT/ML INJECTION Inject 0.25 mL (50 Units) into the shoulder, thigh, or buttocks daily. CALCIUM CARBONATE-CHOLECALCIFEROL (OYSTER SHELL) 250-3.125 MG-MCG TABLET Take 1 tablet by mouth. CHOLECALCIFEROL (VITAMIN D-3) 25 MCG (1000 UT) TABLET Take 1 tablet (1,000 Units) by mouth daily. DICLOFENAC SODIUM (VOLTAREN) 1 % GEL Apply 4 g topically 2 times daily. FLUTICASONE (FLONASE) 50 MCG/ACT NASAL SPRAY 2 sprays in the morning. FLUTICASONE FUROATE-VILANTEROL (BREO ELLIPTA) 200-25 MCG/ACT AEROSOL POWDER Inhale 1 puff daily. GABAPENTIN (NEURONTIN) 600 MG TABLET Take 1 tablet by mouth daily. MAGNESIUM OXIDE (MAG-OX) 400 MG TABLET 400 mg daily. MELATONIN 3 MG TABLET Take 1 tablet (3 mg) by mouth Nightly. MIRTAZAPINE (REMERON) 15 MG TABLET Take 1 tablet (15 mg) by mouth Nightly. MONTELUKAST (SINGULAIR) 10 MG TABLET Take 10 mg by mouth Nightly. NICOTINE (NICODERM, STEP 1) 21 MG/24HR PATCH Place 1 patch on the skin daily. Do not start before November 09, 2022. PAROXETINE (PAXIL) 20 MG TABLET Take 1 tablet (20 mg) by mouth every morning. SENNA-DOCUSATE SODIUM (SENOKOT-S) 8.6-50 MG TABLET Take 1 tablet by mouth Nightly. TIOTROPIUM (SPIRIVA RESPIMAT) 2.5 MCG/ACT INHALER Inhale 2 puffs in the morning. ZINC 50 MG CAPSULE Take 50 mg by mouth. Allergies Allergen Reactions Pollen Extract Unknown Physical Exam: ED Triage Vitals [10/16/231917] Temp Heart Rate Resp BP 36.5 C (97.7 F) (!) 113 20 113/83 SpO2 Temp Source Heart Rate Source Patient Position (!) 91 % Oral Monitor -- BP Location FiO2 (%) -- -- Physical Exam Vitals and nursing note reviewed. Constitutional: General: She is not in acute distress. Appearance: She is well-developed. HENT: Head: Normocephalic and atraumatic. Mouth/Throat: Mouth: Mucous membranes are moist. Eyes: Conjunctiva/sclera: Conjunctivae normal. Cardiovascular: Rate and Rhythm: Normal rate and regular rhythm. Pulses: Dorsalis pedis pulses are 2+ on the right side and 2+ on the left side. Heart sounds: No murmur heard. Pulmonary: Effort: Pulmonary effort is normal. No respiratory distress. Breath sounds: Normal breath sounds. Chest: Chest wall: Tenderness present. Comments: Tenderness to left posterior ribs, there is no flail chest, ecchymosis or crepitus Abdominal: Palpations: Abdomen is soft. Tenderness: There is no abdominal tenderness. Musculoskeletal: General: No swelling. Cervical back: Neck supple. Right hip: Normal. Left hip: Tenderness present. No deformity. Normal range of motion. Right upper leg: Normal. Left upper leg: Normal. Comments: Tenderness to left hip, normal range of motion Skin: General: Skin is warm and dry. Capillary Refill: Capillary refill takes less than 2 seconds. Neurological: General: No focal deficit present. Mental Status: She is alert and oriented to person, place, and time. Sensory: No sensory deficit. Motor: No weakness. Psychiatric: Mood and Affect: Mood normal. Screenings: Patients symptoms are consistent with sepsis, severe sepsis, or septic shock (If yes use ".sepsiscoremeasure"): Diagnostics: Labs: Labs Reviewed - No data to display Radiographs: XR hip left 2 or 3 views Final Result FINDINGS/IMPRESSION: Limitations: Limited by suspected osseous demineralization and overlying bowel gas as well as patient positioning 3 cannulated screws traverse a subcapital left femoral neck fracture. Appearance is overall similar to prior study. No acute fracture or dislocation. Osteoarthritis right and left hip. Degenerative changes in the sacroiliac joints. Degenerative spondylosis in the visualized lumbar spine Report Dictated on Electronically Signed By: Osiel Kwon MD Electronically Signed Date/Time: 10/16/2023 8:[address] chest wo IV contrast Final Result 1. Severe emphysema with scattered areas of bronchiectasis and bronchial wall thickening as well as mucous plugging. Scattered centrilobular and branching nodular opacities suggests small airways disease/infection. Findings have demonstrated a waxing and waning appearance on prior studies. No pneumothorax or pleural effusions. 2. Osseous demineralization. Redemonstration of multiple compression fracture deformities most of which have been present on prior studies. Mild compression fracture deformity, inferior endplate T10 appears new from prior studies. Report Dictated on Electronically Signed By: Osiel Kwon MD Electronically Signed Date/Time: 10/16/2023 9:11 PM EDT Procedures: Procedures EKG: All EKG's are interpreted by the Emergency Department Physician in the absence of a turntable engineer. Please see Epiphany for interpretation of EKG. Emergency Department Course and Medical Decision Making In brief, Gonzalo Deluca is a 67 y.o. female who presented to the emergency department for evaluation of fall. Physical exam as above, patient nontoxic in appearance. Vital signs upon arrival are normal External records reviewed: CT imaging was obtained, patient did not hit her head or lose consciousness, x-ray of the left hip was obtained which showed no acute fracture or dislocation, similar to previous study. CT chest shows severe emphysema scattered area of bronchiectasis and bronchial wall thickening and mucous plugging, findings to demonstrate a waxing waning appearance in previous studies, no pneumothorax. Has multiple compression fractures which is chronic, but there is a mild compression deformity at T10, appears to be new. Patient ambulated without difficulty, states her pain is improved. Will be discharged home and follow-up with her doctor I estimate there is LOW risk for intracranial hemorrhage or edema, subdural or epidural hematoma, cauda equina or central cord syndrome, cord compression, compartment syndrome, tendon or neurovascular injury, pneumothorax, hemothorax, pericardial tamponade, cardiac contusion, thoracic aortic dissection, intra-abdominal injury or perforated bowel, thus I consider the discharge disposition reasonable. Gonzalo Deluca and myself have engaged in Shared Decision Making to ensure adequate and appropriate information was provided to Gonzalo Deluca to assist them in choosing a course of treatment based on their own preferences and concerns. MDM elements: Diagnostic tests considered but not performed: Diagnostics interpreted by me: Discussions with other clinicians: Chronic conditions impacting care: Social determinants of health affecting care: . ED Medications managed: Medications Lidocaine 4 % patch 1 patch (1 patch TransDERmal Medication Applied 10/16/232000) oxyCODONE-acetaminophen (Percocet) 5-325 MG per tablet 1 tablet (1 tablet Oral Given 10/16/232000) Prescription drugs considered: Critical Care: None Consults: None FINAL IMPRESSION 1. Fall, initial encounter 2. Compression fracture of body of thoracic vertebra (HCC) DISPOSITION: Discharge 10/16/2023 09:51:31 PM PATIENT REFERRED TO: Herminia Case MD [address] [place] [address] [phone] Call [facility] ED [address] [place] [phone] Go to If symptoms worsen DISCHARGE MEDICATIONS: New Prescriptions LIDOCAINE (LIDODERM) 5 % PATCH Apply 1 patch topically daily. Remove & discard patch within 12 hours or as directed by . METHOCARBAMOL (ROBAXIN) 500 MG TABLET Take 2 tablets (1,000 mg) by mouth every 8 hours as needed for muscle spasms for up to 10 days. Janneth Hartley PA-C [employer] Janneth Hartley PA-C 10/16/232151 [facility] 10-11-2023 Telephone encounter Note Home care Certification Form 485 received from [facility]. For cert dates 09/26/23 to 11/24/23 that were signed on 10/11/23. New Certification Patient's home health 485 form / care plan for stated certification period reviewed and signed. Relevant medical records were reviewed. No changes were indicated [facility] 10-11-2023 Miscellaneous Notes Home care Certification Form 485 received from [facility]. For cert dates 09/26/23 to 11/24/23 that were signed on 10/11/23. New Certification Patient's home health 485 form / care plan for stated certification period reviewed and signed. Relevant medical records were reviewed. No changes were indicated documented in this encounter [facility] 10-11-2023 Telephone encounter Note Request completed and faxed. [facility] 10-11-2023 Miscellaneous Notes Request completed and faxed. Done. Type of letter/form/fax request - Home Health Care Orders Form received from [facility] on 10/06/23 floor and placed on MD desk () for completion. Completed form needs to be faxed to [phone]. Route to [place] when form completed for processing documented in this encounter [facility] 10-11-2023 Telephone encounter Note Done. [facility] 10-10-2023 Telephone encounter Note Type of letter/form/fax request - Home Health Care Orders Form received from [facility] on 10/06/23 floor and placed on MD desk () for completion. Completed form needs to be faxed to [phone]. Route to [place] when form completed for processing [facility] 10-06-2023 Note HNO ID: [id number] Author: LALA MOLINA LPN Service: ? Author Type: LICENSED NURSE Type: Progress Notes Filed: 10/06/2023 12:12 Note Text: This encounter was opened in error. [facility] 10-06-2023 History of Presen t illness Narrative This encounter was opened in error. documented in this encounter [facility] 10-06-[address] [facility] is calling Herminia Case MD today to report patient's home health care physical therapy will be delayed a week as patient informed them that she is not feeling well.. Patient has been identified by name and birthdate. Duration of symptoms: N/A Person calling: caregiver: [facility] Call patient at: at home [phone] (home) [phone] (cell) Was an appointment scheduled: No Closing statement: Jessica Jay [facility] Work Phone: 10-06-2023 Miscellaneous Notes [facility] is calling Herminia Case MD today to report patient's home health care physical therapy will be delayed a week as patient informed them that she is not feeling well.. Patient has been identified by name and birthdate. Duration of symptoms: N/A Person calling: caregiver: [facility] Call patient at: at home [phone] (home) [phone] (cell) Was an appointment scheduled: No Closing statement: Jessica Whitley Pss documented in this encounter [facility] 09-22-2023 Miscellaneous Notes Patient Choice Patient Name: GONZALO DELUCA Date of : 1955 All Providers Sent Referral Name: [facility] Phone: [phone] Address: [address] [place] [address] The patient is Moderately Unstable - Medium risk of patient condition declining or worsening The patient's goals for the shift include rest The clinical goals for the shift include safety Received message from Reny Telles APRN. Daughter Karishma requesting information on resources available to receive additional help in the home. Placed call to [phone]. Left voice mail and return call back number. [facility] is not here tomorrow -plan to return on Tuesday09/23/23. Made referral to [facility] per Reny Telles APRN. Images from the original note were not included. Care Management Progress Note Chart reviewed. Patient remains on 2 east for treatment of falls and lumbar compression. Has LSO brace at home (per Ortho notes). Geriatrics following. PT recommends return home with home care. business liaison officer following. Currently on 3 liters oxygen; wears 2.5-3 liters at home. DC plan: home with daughter and home care, [facility] following. Discharge Milestones and Delays Expected date/time: 09/23/[address] discharge order Complete med reconciliation Case mgmt discharge readiness Clinical Stability Diagnostic Workup Patient Education Complete Expected Discharge History Expected Date/Time Set By Reviewed At 09/23/2023 SATURNINO Diaz 09/21/2023 9:03 AM 09/19- Ortho following for fractured vertebrae. On 3 liters. Up independently. 703- Still on 3L. In a lot of pain still. Home with daughter," 09/23/2023 SATURNINO Diaz 09/21/2023 9:02 AM 09/19- Ortho following for fractured vertebrae. On 3 liters. Up independently. 703- Still on 3L. In a lot of pain still. Home with daughter,Added blood pressure meds." 09/23/2023 SATURNINO Diaz 09/20/2023 9:21 AM 09/19- Ortho following for fractured vertebrae. On 3 liters. Up independently." 09/23/2023 Carolina Alvarez RN 09/20/2023 8:29 AM 09/23/2023 Heydi Ceballos MD 09/19/2023 8:42 PM 09/23/2023 Heydi Ceballos MD 09/19/2023 6:48 PM Length of Stay (Days): 2 GMLOS: No GMLOS Documented Start PACC Note Home Health Referral Educated patient and daughter, Karishma, on Home Care and services available. Patient offered choice of available HHC and agreeable to SN, PT services with [facility] - Home Care. Care Types: None Isolation Precautions: No active isolations Social Determinates of Health: Tobacco Use: Medium Risk (09/19/2023) Patient History Smoking Tobacco Use: Former Smokeless Tobacco Use: Never Passive Exposure: Not on file Social History Substance and Sexual Activity Alcohol Use Not Currently Comment: Approx once a year Social History Substance and Sexual Activity Drug Use No Does the patient have any financial resource strain? No Does the patient have any food insecurities? No Does the patient have any housing instabilities? No If any of the above is noted as yes - consider a DIRECTOR OF ROOMS evaluation once the patient returns home. START PATIENT REGISTRATION INFORMATION Order Information Order Signing Physician: Nickolas Marrero MD Service Ordered RN ?: Yes Service Ordered PT ?: Yes Service Ordered OT ?: No Service Ordered ST ?: No Service Ordered DIRECTOR OF ROOMS?:No Service Ordered COMMUNITY SERVICES COORDINATOR?: No Following Physician: HERMINIA CASE MD Following Physician Overseeing Physician: HERMINIA CASE MD (Required for Residents only) Agreeable to Follow? Yes Date/Time of Call 09/21/23 2:04 PM, Spoke with: yes per call back received from office . Care Coordination Same Day SOC?: No Primary Care Physician: HERMINIA CASE MD Primary Care Physician Primary Care Physician Address: [address] [place] [id number] Visit Instructions: N/A Service Discharge Location Type: Home with Home Health Care Service Facility Name: N/A Service Floor Facility: N/A Service Room No: N/A Demographics Patient Last Name: Yosi Patient First Name: Gonzalo Language/Communication Barrier: DAUGHTER KARISHMA IS CONTACT Service Address: [address] [place] [address] Service City: [facility] ST: [place] Service ZIP: [address] Service Other phone numbers: Telephone Information: Emergency Contact: Extended Emergency Contact Information Primary Emergency Contact: Karishma Deluca Address: [address] [place] [address] [place] [address] [facility] Mobile Relation: Daughter Secondary Emergency Contact: Jace Deluca Mobile Relation: Son Admission Information Admit Date: 09/19/2023 Patient status at discharge: Inpatient Admitting Diagnosis: Near syncope [R55] Closed head injury, initial encounter [S09.90XA] Fall, initial encounter [W19.XXXA] Compression fracture of T7 vertebra, initial encounter (HCC) [S22.060A] Compression fracture of T8 vertebra, initial encounter ([facility]) [S22.060A] Compression fracture of T5 vertebra, initial encounter ([facility]) [S22.050A] Compression fracture of L1 vertebra, initial encounter ([facility]) [S32.010A] Caregiver Information Caregiver First Name: NA Caregiver Last Name: NA Caregiver Relationship to Patient NA Caregiver Phone Number: NA Caregiver Notes: N/A [employer] List No END PATIENT REGISTRATION INFORMATION Pt Home Health goal To return home and avoid readmission to the hospital by increasing disease process education and preventing falls. COVID Status 1. Do you have any upper respiratory symptoms (cough, SOB, Fever)? No 2. Have you been exposed to anyone with COVID-19 Virus? No Answer only if pending or positive for COVID-19? 1. Agreeable to wear PPE at each visit? No 2. Is the hospital supplying them with PPE upon Discharge? No Start PACC Summary General Report/ Additional Comments Acute, acute on chronic, unstable/uncontrolled chronic problems/diagnoses: Falls/debility - PT/OT ?Syncopal episode - cardiology consulted- likely related to balance, debility and polypharmacy - ECHO- EF 65%, no valvular abnormality - prolonged QTC on admission, corrected on repeat EKG Mild elevation of troponin/left sided chest pain - ECHO no wall motion abnormality, cardiology on board. Shingles , recent- stable Hypokalemia- corrected Smoking COPD and chronic respiratory failure on home oxygen 2-3 lit/NC- stable Severe compression fracture of T5 and T8. Moderate compression fracture L1. Moderated compression deformity T7- ortho consulted, back brace as needed. Polypharmacy- geriatrics and psych consulted, see recs. Stable chronic problems affecting care, new non-acute diagnoses: Discharge Date: TBD Referral Source-PACC: (Hospital/Unit): [facility] / [id number]/[id number] A End PACC Note The patient is Moderately Unstable - Medium risk of patient condition declining or worsening The patient's goals for the shift include safety and comfort The clinical goals for the shift include safety Care Managment Initial Assessment Date: 09/20/2023 Patient Name: Gonzalo Deluca : 1955 Patient Information Source of Information: Patient Cognition/Language: WFL - Within Functional Limits Permission given to speak with patient financial sales representative/caregiver as indicated: Yes Confirmation of Payer with patient/family: Yes Payer Name: [facility] Dual Complete [place]: No Confirmation of Primary Care Physician: Confirmed PCP Name: Deep Dunn Seen in last 2 years?: Yes Primary Caregiver: Self If assistance needed, confirmed caregiver ready, willing and able to care for patient at discharge: Yes Confirmed with: patient Living Arrangements Current Residence: House Number of Floors 2 Number of Entry Steps: 2 Bed/Bath Levels: Both second floor Facility: Facility Name: Plan to Return: Lives with: Children, Extended family members Support Systems: Children Activities of Daily Living Ambulation: Assistance (cane as needed) Bathing/Dressing: Independent Elimination/Continence/Toileting : Independent Feeding: Independent Who Assists with Activities of Daily Living: Instrumental Activities of Daily Living Prescription Coverage: Yes Pharmacy Used: [facility] in [place] Medication Management: Independent Transportation/Shopping: Transportation Mode: Car Needs Assistance with Transportation at Discharge: No Meal Preparation: Assistance Provider Meal Prep Assistance Provider Name: daughter Laundry/Cleaning: Assistance Provider Laundry/Cleaning Assistance Provider Name: daughter Finances/Bill Paying: Independent Communication: Independent Types of Care Services/Equipment Utilized Care Services: Dialysis Type: NA Durable Medical Equipment: Cane, Walker, Wheelchair (standard or power), Shower Seat, Bedside Commode, Oxygen (Continuous or prn) Oxygen Flow Rate: 2.5-3 L continuous Patient's Goal/Discharge Plan Patient expects to be discharged to: Home with possible HHC Discharge Planning Actions: Continue to follow Patient's Choice Rights and [employer] and Collaborative Relationships Disclosed as Indicated for Post-Acute Care: Interdisciplinary Team Engagement: Social Work Referral for: Additional Information: Pt admitted to for syncopal episode and fall. Met with pt at bedside, introduced self and explained role. Pt has insurance with RX coverage, active with PCP. Pt lives with her daughter and granddaughter in a two story home. Pt gives permission to speak with daughter if needed. Pt uses a cane for mobility assistance. Independent with other ADL's. Daughter assists with cleaning and cooking. She manages her own medications. She does not drive and does have a ride home at discharge. Pt wears O2 as baseline at 2.5-3L continuously. Orthopedics following. Cardiology and Geriatrics consulted. ECHO pending. PT/OT with pending evals. Pt states she would be agreeable to HHC if it was deemed necessary. Tasked HHC to follow for possible home going needs. Discharge plan is home with possible HHC at this time. custodial services manager to follow and assist as needed. Carolina Alvarez RN Problem: Knowledge Deficit Goal: Patient/family/caregiver demonstrates understanding of disease process, treatment plan, medications, and discharge instructions Outcome: Progressing Problem: Potential for Compromised Skin Integrity Goal: Skin Integrity is Maintained or Improved Outcome: Progressing Goal: Nutritional status is improving Outcome: Progressing Problem: Urinary Incontinence Goal: Perineal skin integrity is maintained or improved Outcome: Progressing The patient is Moderately Stable - Low risk of patient condition declining or worsening The patient's goals for the shift include rest The clinical goals for the shift include safety Over the shift, the patient did not make progress toward the following goals. Barriers to progression include . Recommendations to address these barriers include . documented in this encounter [facility] 09-22-2023 Note Formatting of this n ote might be different from the original. Patient Choice Patient Name: GONZALO DELUCA Date of : 1955 All Providers Sent Referral Name: [facility] Phone: [phone] Address: [address] [place] [id number] [facility] 09-22-2023 Note Formatting of this n ote might be different from the original. Patient Choice Patient Name: GONZALO DELUCA Date of : 1955 All Providers Sent Referral Name: [facility] Phone: [phone] Address: [address] [place] [id number] [facility] 09-22-2023 Note [facility] 09-22-2023 History of Presen t illness Narrative Patient chart is reviewed. Currently rounding. Full note to follow. Hospitalist Progress Note 09/21/2023 Subjective: Admit Date: 09/19/2023 PCP: HERMINIA CASE MD Room#: B2-261/B2-261 A BRIEF HOSPITAL COURSE: Admitted for syncopal episode and fall. Noted to have compression fracture- ortho consulted- brace as needed. prolonged QTC/syncope - cardiology consulted Recent shingles treated with valtrex and steroid - stable Interval History: Feels better. No dizziness, lightheaded. Adult diet Regular 24HR INTAKE/OUTPUT: Intake/Output Summary (Last 24 hours) at 09/21/2023 1116 Last data filed at 09/21/2023 0218 Gross per 24 hour Intake -- Output 800 ml Net -800 ml Past Medical History: Past Medical History: Diagnosis Date Abnormal stress test Acute exacerbation of chronic obstructive pulmonary disease (HCC) 04/12/2018 Allergic rhinitis Arthritis Asthma Bronchitis Cancer (CMS/HCC) (HCC) skin Cervical cancer (CMS/HCC) (HCC) Chest pain COPD (chronic obstructive pulmonary disease) (HCC) USE OXYGEN 3 L AT NIGHT DDD (degenerative disc disease), cervical Defect, retina, with detachment right DJD (degenerative joint disease), lumbar Emphysema lung (HCC) Former smoker Hematuria SCHEDULED FOR THE PROCEDURE /SURGERY ON 02/11/2017 Hypokalemia Lung nodules Near syncope 09/19/2023 Osteoporosis Palpitations Pneumonia Recurrent major depression (HCC) Sciatica Thoracic compression fracture (HCC) Vitamin D deficiency LABS: CBC: Recent Labs 09/19/23170609/19/23 17509/20/2362609/21/23 042 WBC 19.5* -- 10.9* 9.4 RBC 4.18 -- 3.64* 3.51* HGB 12.7 13.4 11.0* 10.6* HCT 39.6 -- 34.8* 33.9* MCV 94.7 -- 95.6 96.6 RDW 13.0 -- 12.9 13.2 PLT 339 -- 243 217 BMP: Recent Labs 09/19/23170609/20/2362609/21/23426 NA 140 137 139 K 2.3* 3.1* 3.1* CL 93* 99 102 CO2 35* 33* 35* BUN 36* 28* 18* CREATININE 1.33* 0.73 0.49* GLUCOSE 99 94 97 CALCIUM 9.0 8.5 9.1 ANIONGAP 13 5 2* LIVER PROFILE: Recent Labs 09/19/231706 AST 35 ALT 38* BILITOT 0.5 ALKPHOS 115 PROT 7.1 PT/INR: No results for input(s): "PROTIME", "INR" in the last 72 hours. CARDIAC ENZYMES: Recent Labs 09/19/23170609/19/23 2319 09/20/23 06 TROPONINI 0.025 0.031 0.022 Procalcitonin: No results found for: "PROCAL" COVID-19 PCR: No results for input(s): "COVID19" in the last 72 hours. Objective: Vitals: BP 124/84 Pulse 92 Temp 36.2 C (97.2 F) (Temporal) Resp 16 Ht 5' 5" (1.651 m) Wt 115 lb (52.2 kg) SpO2 91% BMI 19.14 kg/m Pulse Ox: SpO2 Av.2 % Min: 91 % Max: 93 % Supplemental O2: O2 Flow Rate (L/min): 3 L/min Physical Exam Constitutional: Appearance: Normal appearance. Cardiovascular: Rate and Rhythm: Normal rate and regular rhythm. Pulmonary: Breath sounds: Normal breath sounds. Abdominal: General: Bowel sounds are normal. Palpations: Abdomen is soft. Musculoskeletal: Right lower leg: No edema. Left lower leg: No edema. Skin: Coloration: Skin is not pale. Comments: Rash left flank Neurological: Mental Status: She is alert. Medications: Scheduled PRN acetaminophen, 650 mg, Oral, TID buPROPion XL, 150 mg, Oral, Daily busPIRone, 15 mg, Oral, TID calcitonin, 50 Units, IntraMUSCular, Daily enoxaparin, 40 mg, SubCUTAneous, Daily mirtazapine, 15 mg, Oral, Nightly mometasone-formoterol, 2 puff, Inhalation, BID montelukast, 10 mg, Oral, Nightly nicotine, 1 patch, TransDERmal, Daily PARoxetine, 30 mg, Oral, Daily potassium chloride CR, 40 mEq, Oral, BID QUEtiapine, 100 mg, Oral, Nightly tiotropium, 2 puff, Inhalation, Daily PRN medications: acetaminophen OR acetaminophen, lidocaine, melatonin, naloxone, ondansetron ODT OR ondansetron, oxyCODONE, perflutren protein A microsphere (Optison) 3 mL in sodium chloride (PF) 0.9 % 10 mL IV syringe, polyethylene glycol (PEG) 3350 Continuous Assessment Data: (CAT1) Reviewed 1 notes from different specialty or health system (each=1). (LOW: 2x CAT1 or independent historian MOD: 3x CAT1 or 1x CAT3 EXTENSIVE: 3x CAT1 and 1x CAT3) Acute, acute on chronic, unstable/uncontrolled chronic problems/diagnoses: Falls/debility - PT/OT ?Syncopal episode - cardiology consulted- likely related to balance, debility and polypharmacy - ECHO- EF 65%, no valvular abnormality - prolonged QTC on admission, corrected on repeat EKG Mild elevation of troponin/left sided chest pain - ECHO no wall motion abnormality, cardiology on board. Shingles , recent- stable Hypokalemia- corrected Smoking COPD and chronic respiratory failure on home oxygen 2-3 lit/NC- stable Severe compression fracture of T5 and T8. Moderate compression fracture L1. Moderated compression deformity T7- ortho consulted, back brace as needed. Polypharmacy- geriatrics and psych consulted, see recs. Stable chronic problems affecting care, new non-acute diagnoses: Plan As a result of the above findings & factors, the following mgmt was pursued: - psych consult pending. - geriatrics consult appreciated. -replace K - Pt/OT- Home with [facility]. - DC home tomorrow if OK with consults. - am labs, replace lytes prn - PT/OT/CM/SW - delirium precautions: increase activity - DVT prophylaxis: enoxaparin and encourage ambulation Advance Directive: Full Code Anticipated Discharge Extended Emergency Contact Information Primary Emergency Contact: Karishma Deluca Address: [address] [place] [address] [place] [phone] [facility] Mobile Relation: Daughter Secondary Emergency Contact: Jace Deluca Mobile Relation: Son Nickolas Marrero MD Division of Hospitalist Medicine [facility] Images from the original note were not included. PHYSICAL THERAPY [facility] Initial Evaluation Name/MRN: Gonzalo Deluca ([id number]) Evaluation Date: 09/21/2023 Date of : 1955 Admission Date: 09/19/2023 4:29 PM Age: 67 y.o. Room/Bed: B2-261/B2-261 A Discharge Recommendation: Home with Home health PT, Continue to assess pending progress Assessment IMPRESSION: Patient was admitted on 09/18 due to a fall. Pt found to have moderate to severe compression fx of T5 and T8, Moderate compression deformity of T7, and Moderate l1 compression fx. Ortho said LSO for comfort but OK for OT/PT as tolerated. Prior to admission, pt lived with her daughter and performed ADLs and mobility independently. Patient mobility session is limited due to inc levels of pain, and inability to tolerate higher functional mobility. Today patient demo SBA bed mobility, CGA transfers, and min A progress to CGA for ambulation. Patient will continue to benefit from acute skilled PT in order to improve functional mobility as pain levels dec through hospital course. PT discharge rec is home with HHPT pending patient progress through acute skilled PT Diagnosis: moderate to severe compression fx of T5 and T8, Moderate compression deformity of T7, and Moderate l1 compression fx. Prognosis: good Performance Deficits /Impairments: Increased Pain, Decreased Functional Mobility, Decreased ADL status, Decreased ROM, Decreased Strength, Decreased Endurance, Decreased Balance, and Decreased Posture Decision Making: Medium Complexity Subjective PT got rn approval to eval. Patient was agreeable to PT eval. Pain: 0-10 pain scale: 8/10 Location: back Patient reports no change in pain with mobility Past Medical History: Past Medical History: Diagnosis Date Abnormal stress test Acute exacerbation of chronic obstructive pulmonary disease ([facility]) 04/12/2018 Allergic rhinitis Arthritis Asthma Bronchitis Cancer ([facility]) ([facility]) skin Cervical cancer ([facility]) ([facility]) Chest pain COPD (chronic obstructive pulmonary disease) ([facility]) USE OXYGEN 3 L AT NIGHT DDD (degenerative disc disease), cervical Defect, retina, with detachment right DJD (degenerative joint disease), lumbar Emphysema lung ([facility]) Former smoker Hematuria SCHEDULED FOR THE PROCEDURE /SURGERY ON 02/11/2017 Hypokalemia Lung nodules Near syncope 09/19/2023 Osteoporosis Palpitations Pneumonia Recurrent major depression ([facility]) Sciatica Thoracic compression fracture ([facility]) Vitamin D deficiency Past Surgical History: Past Surgical History: Procedure Laterality Date CYSTOSCOPY 01/12/2017 OFFICE PROCEDURE CYSTOSCOPY 02/11/2017 C&P bladder biopsy EYE SURGERY detached retina 1994 HYSTERECTOMY 11/06/2019 ABDOMINAL RADICAL HYSTERECTOMY WITH BSO AND PELVIC LYMPH; DR[facility]YAD [facility]AL [facility] OTHER SURGICAL HISTORY Left 12/19/2019 Med Port POWER Regular Size OTHER SURGICAL HISTORY Left 11/07/2022 Percutaneous skeltal fixation femoral fracture TUBAL LIGATION 1992 Admission Diagnosis: Patient Active Problem List Diagnosis Date Noted Severe malnutrition ([facility]) ([facility]) 09/20/2023 Falls frequently 09/20/2023 Unintentional weight loss 09/20/2023 Debility 09/20/2023 PFO (patent foramen ovale) 09/20/2023 Lumbar compression fracture, closed, initial encounter ([facility]) 02/13/2023 Nondisplaced fracture of neck of left femur ([facility]) 11/06/2022 Other specified complication of vascular prosthetic devices, implants and grafts, initial encounter ([facility]) 08/06/2021 Poor venous access 12/19/2019 H/O: CVA (cerebrovascular accident) 12/14/2019 Malignant neoplasm of exocervix ([facility]) 11/07/2019 S/P hysterectomy 11/07/2019 PNA (pneumonia) 08/02/2019 Leukocytosis 04/13/2018 Shortness of breath 04/13/2018 DDD (degenerative disc disease), cervical 04/12/2018 Recurrent major depression ([facility]) 04/12/2018 Chronic back pain 04/10/2017 COPD (chronic obstructive pulmonary disease) ([facility]) 04/10/2017 Pulmonary nodule 04/10/2017 Sciatica 04/10/2017 Supplemental oxygen dependent 04/10/2017 Former smoker 04/10/2017 Medical Precautions: No active isolations Proper PPE donned/doffed in accordance with facility standards. Fall Risk: Webb Fall Risk Score: 60 (High Risk) Precautions/Restrictions: Braces or Orthoses: LSO for comfort. OK for PT/OT as tolerated Family/Caregiver Present: none Overall Cognitive Status: Exceptions - Memory: decreased recall of recent events and decreased short term memory - Problem solving: assistance required to generate solutions and assistance required to implement solutions Overall Orientation Status: Oriented x4 Vision: no visual deficits Hearing: normal Social/Functional History Patient admitted from home. Lives With: Daughter Type of Home: single family home Home Layout: Multi-Level Home Home Access: Stairs to Enter with Rails (# of stairs: 3) Bathroom Shower/Tub: Tub/Shower Combo Toilet: Standard Home Equipment: front wheeled walker, rollator, cane, and bedside commode Homemaking Responsibilities: Independent Receives Help From: Family Active Linotyper: N/A Prior Level of Function ADL Assistance: Independent Ambulation Assistance: Independent Transfer Assistance: Independent Patient was a questionable historian Objective Lower Extremity Assessment AROM: reduced LE rom via functional mobility PROM: Not assessed this session Strength: Exceptions: reduced LE strength via functional mobility Bed Mobility: Supine to sit: SBA, Patient was educated on log roll technique for bed mobility. Patient was able to initiate and sequence with appropriate technique. Patient was IND with leg management OOB and demo adequate core strength to ascend to seated position. No LOB and denies dizziness. Sit to supine: SBA, Patient was educated on log roll technique for bed mobility. Patient was able to initiate and sequence with appropriate technique. Patient demo good trunk descend ECC control, and leg management back in bed IND. Patient required inc time to perform mobility. Transfers Sit to stand: SBA, x1 bed to FWW. Patient was educated on set up for safe ascend. Patient demo ability to complete transfer with no LOB. Patient demo inc use of UE through FWW for balance in standing. Stand to sit: SBA, x1 bed to FWW. Patient was educated on set up for safe descend. Patient demo dec ecc control upon sitting. No LOB. X3 attempt toilet transfer. Patient was educated to bed at hips not back for pain reduction. Patient unable to sit completely on toilet due to reports of pain. And refused to AMB further distance requesting to go back into bed. Ambulation Ambulation 1 Assistive device(s) used: front wheeled walker Assist level: Contact Guard, Min Assist Distance (ft): 2x15 feet Quality of gait: antalgic, step to pattern, shuffling, narrow SADIE, slow lauren, Patient demo inc use of FWW for balance and support. Patient demo dec WB on the L with inability to demonstrate heel first contact. Patient required slight assistance for balance initially progressing to CGA. Patient demo short stride lengths with a step to gait pattern. Patient was educated on FWW management, body proximity and obstacle navigation. 88% SPO2 after mobility Patient educated on breathing techniques. (1:2 ratio and pursed lip breathing) Upon PT exit patient was saturating back in the 90%'s. Outcome Measures AM-PAC How much HELP from another person do you currently need Turning from your back to your side while in a flat bed without using bedrails?: A Little Moving from lying on your back to sitting on the side of a flat bed without using bedrails?: A Little Moving to and from a bed to a chair (including a wheelchair)?: A Little Standing up from a chair using your arms (wheelchair or bedside chair)?: A Little Walking in a hospital room?: A Lot Stair climbing assessed?: No AM-PAC Inpatient Mobility Raw Score (No Stairs) : 14 -[facility] Plan Pt would benefit from skilled acute PT services to address Strengthening, ROM, Balance Training, Functional Mobility Training, Endurance Training, Gait Training, Stair Training, Pain Management, Equipment Evaluation/Education, and Positioning. Frequency: 6 visits during current hospital admission or until additional recommendations are made Barriers: Pain Safety/Education Safety Safety Devices in place: All fall risk precautions in place, call light within reach, left in bed, gait belt, patient at risk for falls, and nurse notified Restraints: No Education Education Given To: patient Education Provided: PT Role, PT Goals, Gait Training, Transfer Training, Energy Conservation, Equipment, Fall Prevention Education, Discharge Recommendations, Benefits of Increasing Activity, and Breathing Techniques Education Method: Verbal and Demonstration Barriers to Learning: None Education Outcome: Verbalized Understanding and Demonstrated Understanding Goals Patient Stated Goal: patient reports wanting back to feel better Encounter Problems Encounter Problems (Active) Exercise Patient will complete lower extremity exercises for 1-2 sets / 5-10 reps in order to improve strength and activity tolerance for mobility. Start: 09/21/23 Expected End: 09/28/23 Mobility Patient will ambulate 100 feet with modified independence and least restrictive device in order to improve safety and independence with mobility. Start: 09/21/23 Expected End: 09/28/23 Patient will ascend and descend 3 stairs with least restrictive device and modified independence in order to safely negotiate home. Start: 09/21/23 Expected End: 09/28/23 Misc: Patient will be able to ambulate 50 feet with LRAD and modified independence demonstrating left heel first contact 50% of the time in order to progress to safe ambulate at home. Start: 09/21/23 Expected End: 09/28/23 Transfers Patient will perform bed mobility with modified independence in order to improve independence and prepare for out of bed mobility. Start: 09/21/23 Expected End: 09/28/23 Patient will complete sit to stand transfer with modified independence to LRAD in order to improve safety and prepare for out of bed mobility. Start: 09/21/23 Expected End: 09/28/23 Therapy Time Individual Co-treatment Time In 906 (co eval with OT) Time Out 926 Minutes 20 Timed Code Treatment Minutes: 8 Minutes (x1 ther act) JEFFERSON Galdamez Patient's Physical Therapy Plan of Care supervision is transferred to a [facility] Physical Therapist. Goals and/or treatment plan was established in collaboration with patient/family/other representatives. Images from the original note were not included. OCCUPATIONAL THERAPY [facility] Initial Evaluation Name/MRN: Gonzalo Deluca ([id number]) Evaluation Date: 09/21/2023 Date of : 1955 Admission Date: 09/19/2023 4:29 PM Age: 67 y.o. Room/Bed: B2-261/B2-261 A Discharge Recommendation: Home with Home health OT, Home with assist PRN, Continue to assess pending progress Equipment Needed: No Assessment IMPRESSION: Pt admitted to ED on 09/18 with a fall. Pt found to have moderate to severe compression fx of T5 and T8, Moderate compression deformity of T7, and Moderate l1 compression fx. Ortho said LSO for comfort but OK for OT/PT as tolerated. Prior to admission, pt lived with her daughter and performed ADLs and mobility independently. Upon eval, pt required SBA for bed mobility, CGA for transfers, CGA-Min A for mobility, and SBA for ADLs. Pt is limited by significant back pain. Educated on BLT precautions for comfort. Pt would benefit from skilled OT services in order to increase safety and independence in occupational tasks. Recommend HHC and PRN assist upon DC. Performance Deficits /Impairments: Increased Pain, Decreased Functional Mobility, Decreased ADL status, Decreased Strength, Decreased Endurance, Decreased Balance, and Decreased High Level IADLs Prognosis: Good Decision Making: Medium Complexity Subjective Pt very pleasant and agreeable to therapy eval. Pain: 0-10 pain scale: 8/10 Location: back Past Medical History: Past Medical History: Diagnosis Date Abnormal stress test Acute exacerbation of chronic obstructive pulmonary disease (HCC) 04/12/2018 Allergic rhinitis Arthritis Asthma Bronchitis Cancer (CMS/HCC) (HCC) skin Cervical cancer (CMS/HCC) (HCC) Chest pain COPD (chronic obstructive pulmonary disease) (HCC) USE OXYGEN 3 L AT NIGHT DDD (degenerative disc disease), cervical Defect, retina, with detachment right DJD (degenerative joint disease), lumbar Emphysema lung (HCC) Former smoker Hematuria SCHEDULED FOR THE PROCEDURE /SURGERY ON 02/11/2017 Hypokalemia Lung nodules Near syncope 09/19/2023 Osteoporosis Palpitations Pneumonia Recurrent major depression (HCC) Sciatica Thoracic compression fracture ([facility]) Vitamin D deficiency Past Surgical History: Past Surgical History: Procedure Laterality Date CYSTOSCOPY 01/12/2017 OFFICE PROCEDURE CYSTOSCOPY 02/11/2017 C&P bladder biopsy EYE SURGERY detached retina 1994 HYSTERECTOMY 11/06/2019 ABDOMINAL RADICAL HYSTERECTOMY WITH BSO AND PELVIC LYMPH; DR. ZIYAD NORWOODA OTHER SURGICAL HISTORY Left 12/19/2019 Med Port POWER Regular Size OTHER SURGICAL HISTORY Left 11/07/2022 Percutaneous skeltal fixation femoral fracture TUBAL LIGATION 1992 Admission Diagnosis: Patient Active Problem List Diagnosis Date Noted Severe malnutrition ([facility]) ([facility]) 09/20/2023 Falls frequently 09/20/2023 Unintentional weight loss 09/20/2023 Debility 09/20/2023 PFO (patent foramen ovale) 09/20/2023 Lumbar compression fracture, closed, initial encounter ([facility]) 02/13/2023 Nondisplaced fracture of neck of left femur ([facility]) 11/06/2022 Other specified complication of vascular prosthetic devices, implants and grafts, initial encounter ([facility]) 08/06/2021 Poor venous access 12/19/2019 H/O: CVA (cerebrovascular accident) 12/14/2019 Malignant neoplasm of exocervix ([facility]) 11/07/2019 S/P hysterectomy 11/07/2019 PNA (pneumonia) 08/02/2019 Leukocytosis 04/13/2018 Shortness of breath 04/13/2018 DDD (degenerative disc disease), cervical 04/12/2018 Recurrent major depression ([facility]) 04/12/2018 Chronic back pain 04/10/2017 COPD (chronic obstructive pulmonary disease) ([facility]) 04/10/2017 Pulmonary nodule 04/10/2017 Sciatica 04/10/2017 Supplemental oxygen dependent 04/10/2017 Former smoker 04/10/2017 Medical Precautions: No active isolations Proper PPE donned/doffed in accordance with facility standards. Fall Risk: Webb Fall Risk Score: 60 (High Risk) Precautions/Restrictions: Braces or Orthoses: LSO for comfort. OK for PT/OT as tolerated Family/Caregiver Present: none Overall Cognitive Status: Exceptions - Memory: decreased recall of recent events and decreased short term memory - Problem solving: assistance required to generate solutions and assistance required to implement solutions Overall Orientation Status: Oriented x4 Social/Functional History Patient admitted from home. Lives With: Daughter Type of Home: single family home Home Layout: Multi-Level Home Home Access: Stairs to Enter with Rails (# of stairs: 3) Bathroom Shower/Tub: Tub/Shower Combo Toilet: Standard Home Equipment: front wheeled walker, rollator, cane, and bedside commode Homemaking Responsibilities: Independent Receives Help From: Family Active Linotyper: N/A Prior Level of Function ADL Assistance: Independent Ambulation Assistance: Independent Transfer Assistance: Independent Pt is a questionable historian Objective ADLs LE Dressing: SBA Toileting: unable to complete Pt used figure 4 technique to doff socks while sitting at EOB and hinged at the hips to don her socks. She attempted bathroom level toileting but was unable to complete, as she could not sit on the toilet d/t severe exacerbation of pain with transfer to a low surface. Educated pt on continuing to use the BSC and elevating her toilet at home to improve safety and ability to complete toilet transfers upon Dc. Upper Extremity Assessment AROM: generally WFL PROM: Not assessed this session Strength: unable to formally assess d/t pain. < 3/5 strength observed in B UEs during functional activities. Vision: no visual deficits Hearing: normal Bed Mobility Supine to sit: SBA Sit to supine: SBA Scooting: SBA Pt educated on log roll technique to improve pain management during positional changes. She required SBA for bed mobility with slight additional time to complete. HOB was elevated. Pt denied dizziness. Transfers/Functional Mobility Sit to stand: Contact Guard Stand to sit: Contact Guard Toilet: unable to complete Standing balance: Contact Guard Functional mobility: Contact Guard, Min Assist Educated pt on hand placement for transfers. She stood from EOB to FWW with CGA. Pt walked to the bathroom with Min A initially, decreased ability to WB through the L LE d/t pain. Pt attempted 3 toilet transfers but was unable to fully sit d/t pain. Pts pain increased and she returned to EOB to end the session. Device(s) used: Front wheeled walker AM-PAC AM-PAC Inpatient Daily Activity Raw Score: 19 ADL Inpatient CMS G-Code Modifier: CK Plan Pt would benefit from skilled acute OT services to address Strengthening, Balance Training, Functional Mobility Training, Endurance Training, Pain Management, Safety Education and Training, Patient/Caregiver Training, Equipment Evaluation/Education, Positioning, Self-Care/ADL Training, and Home Management Training. Frequency: 5 visits during current hospital admission or until additional recommendations are made Barriers: Pain and Decreased endurance Prognosis: good Safety/Education Safety Safety Devices in place: All fall risk precautions in place, call light within reach, left in bed, gait belt, patient at risk for falls, and nurse notified Restraints: N/A Education Education Given To: patient Education Provided: OT Role, Plan of Care, Precautions, Transfer Training, Equipment, Fall Prevention Education, Discharge Recommendations, and Benefits of Increasing Activity Education Method: Verbal Barriers to Learning: None Education Outcome: Verbalized Understanding Goals Patient Stated Goal: to have less pain Encounter Problems Encounter Problems (Active) Balance Patient will maintain dynamic standing balance for 3 minutes with modified independence in order to demonstrate decreased risk of falling. Start: 09/21/23 Expected End: 09/26/23 Dressings Lower Extremities Patient will perform LB ADLs with Mod I Start: 09/21/23 Expected End: 09/26/23 Mobility Pt will perform functional mobility and transfers with FWW and mod I Start: 09/21/23 Expected End: 09/26/23 Toileting Patient will complete toileting tasks at standard toilet with modified independence. Start: 09/21/23 Expected End: 09/26/23 Transfers Patient will perform bed mobility with modified independence in order to improve independence and prepare for out of bed mobility. Start: 09/21/23 Expected End: 09/26/23 Therapy Time Individual Co-treatment Time In 0907 Time Out 0927 co-eval Minutes 20 Roopa More OT Patient's Occupational Therapy Plan of Care supervision is transferred to a [facility] Occupational Therapist. Goals and/or treatment plan was established in collaboration with patient/family/other representatives. [facility] Geriatric Medicine Inpatient Consult Service Admission Date: 09/19/2023 Assessment Principal Problem: Falls frequently Active Problems: Severe malnutrition (CMS/HCC) (HCC) Unintentional weight loss Debility Chronic back pain COPD (chronic obstructive pulmonary disease) (HCC) Supplemental oxygen dependent Plan Polypharmacy (History per patient and review of dispense report). -Wellbutrin - taking for a year. -Duloxetine - no longer taking so order stopped. Patient reports not effective. -Cyclobenzaprine - taking 5mg about weekly. Recommend not restarting due to risk of falls and confusion. -Mirtazapine - taking 15mg at HS. Some improvement in appetite. Continue. -Paroxetine - taking 40mg. Recommend slow wean, will decrease to 30mg daily. At risk for anticholinergic side effects (falls, confusion). -Buspar - taking 15mg TID - resumed to avoid withdrawal. -Quetiapine - taking 200mg at HS for sleep. Started Nov 2022. Currently on 100mg at HS. -Oxycodone-Acetaminophen - takes 5/325mg 4 times a day for 8-10 years. Currently on Oxycodone 5mg every 6 hours as needed. -Dicussed with daughter today, recommend patient has increased supervision of medications. Anxiety History of reported panic attacks -will consult psychiatry to review medications and establish care -patient reports failing trials of Duloxetine and Sertraline -see polypharmacy above Cognitive deficits --+ history of cognitive decline at home. + history of decline in ADL's and IADL's. Debility, pain and COPD contributing to decline. --TSH WNL, B12 WNL --Head imaging - CT head 09/19/23 - unchanged small area of encephalomalacia in lateral aspect of right occipital lobe. --History concerning for baseline cognitive impairment --Recommend outpatient follow up at [facility] for more in depth cognitive evaluation when in usual state of health. Debility -contributing factors include COPD, osteoporosis, anxiety, chronic pain, polypharmacy -Vit D 30 - start Vit D3 1000 units daily -PT and OT recommend home with home PT -patient may need increased assistance at home. Daughter interested in information - case management notified. Chronic pain -continue Tylenol 650mg TID. Hepatic panel reviewed - ALT slightly elevated 38 -continue Oxycodone IR PRN At risk for delirium --Risk factors: head trauma, pain, advanced age, sensory impairments, acute illness, high risk medications, and baseline cognitive deficits --Encourage PO intake, time up in chair, family visits, supervised ambulation, and sleep hygiene --If agitated, assess for and consider treating for pain --QTc= 446 --No antipsychotic unless patient is danger to self/others/treatment --Schedule melatonin at HS --Monitor for constipation/urinary retention - last BM unknown ( few days ago per patient) --Possible medication contributions: see polypharmacy Constipation --takes stool softener regularly at home -start Senna S nightly Follow-up: will follow with you Subjective Chief Complaint: back pain Geriatrics consulted for fall, polypharmacy, labile BP HPI- The patient is known to me. 67 y.o. year-old female with PMH of asthma, skin cancer, Cervical cancer, COPD (uses 3 L at night), DDD, DJD, Former smoker, lung nodules, osteoporosis, depression, Vit D deficiency, Osteoporosis presented to [facility] on 09/19/23 for fall. Found to have prolonged QT interval, hypokalemia, WBC 19.5, CT showed multiple recent midthoracic compression fractures and likely remote lumbar compression fracture. Interval History: Remains on general medical/surgical floor . -Patient reports she is tired, slept only a few hours. Having a lot of back pain. Appetite not that good. -Nursing reports she at times seems she may have cognitive issues and other times not. -Spoke with daughter Karishma today. Reports patient having memory issues for the last year, progressively worsening. Feels she manages meds ok. Needs some assistance with bathing and dressing due to mobility and COPD. She is alone often during the day. Daughter feels she could use more help in the home Reviewed notes/chart: -prolonged Qtc on admission - corrected on repeat EKG -PT recommend home with home health PT -ortho - L1 compression - progressed from 2020, may be new or could just have settled from occurrence in 2020 and now stable. Instructed to bring LSO and wear PRN for comfort. No further workup on sclerotic cervical lesion. -BMP - K 3.1, creat 0.49 BUN 18 Review of Systems Constitutional: Negative for fatigue. HENT: Negative for congestion. Respiratory: Negative for shortness of breath. Gastrointestinal: Negative for abdominal pain, constipation, diarrhea and nausea. Genitourinary: Negative for difficulty urinating. Musculoskeletal: Positive for back pain and gait problem. Neurological: Positive for tremors (slight this morning due to pain, does not have normally). Negative for dizziness. Psychiatric/Behavioral: Positive for sleep disturbance. Objective BP 124/84 Pulse 92 Temp 36.2 C (97.2 F) (Temporal) Resp 16 Ht 5' 5" (1.651 m) Wt 115 lb (52.2 kg) SpO2 91% BMI 19.14 kg/m Intake/Output Summary (Last 24 hours) at 09/21/2023 0955 Last data filed at 09/21/2023 0218 Gross per 24 hour Intake -- Output 800 ml Net -800 ml Wt Readings from Last 3 Encounters: 09/20/23 115 lb (52.2 kg) 08/07/23 125 lb (56.7 kg) 02/14/23 135 lb (61.2 kg) Current Facility-Administered Medications: acetaminophen (Tylenol) tablet 650 mg, 650 mg, Oral, q6h PRN OR acetaminophen (Tylenol) suppository 650 mg, 650 mg, Rectal, q6h PRN, Lauren Serna MD acetaminophen (Tylenol) tablet 650 mg, 650 mg, Oral, TID, Saad Ezzie, LAMINATING PRESS OPERATOR - AN/SSN 2 4 OPERATOR, 650 mg at 09/21/23821 buPROPion XL (Wellbutrin XL) 24 hr tablet 150 mg, 150 mg, Oral, Daily, Lauren Serna MD, 150 mg at 09/21/23821 busPIRone (Buspar) tablet 15 mg, 15 mg, Oral, TID, Saad Ezzie, LAMINATING PRESS OPERATOR - AN/SSN 2 4 OPERATOR, 15 mg at 09/21/23821 calcitonin (Miacalcin) injection 50 Units, 50 Units, IntraMUSCular, Daily, Lauren Serna MD enoxaparin (Lovenox) syringe 40 mg, 40 mg, SubCUTAneous, Daily, Lauren Serna MD, 40 mg at 09/21/23821 lidocaine (LMX) 4 % cream, , Topical, PRN, Lauren Serna MD melatonin tablet 3 mg, 3 mg, Oral, Nightly PRN, Saad Ezzie, LAMINATING PRESS OPERATOR - AN/SSN 2 4 OPERATOR, 3 mg at 09/20/232121 mirtazapine (Remeron) tablet 15 mg, 15 mg, Oral, Nightly, Saad Ezzie, LAMINATING PRESS OPERATOR - AN/SSN 2 4 OPERATOR, 15 mg at 09/20/232122 mometasone-formoterol (Dulera 200) 200-5 MCG/ACT inhaler 2 puff, 2 puff, Inhalation, BID, Lauren Serna MD, 2 puff at 09/21/23 0832 montelukast (Singulair) tablet 10 mg, 10 mg, Oral, Nightly, Lauren Seran MD, 10 mg at 09/20/23 212 naloxone (Narcan) injection 0.4 mg, 0.4 mg, IntraVENous, q5 min PRN, Lauren Serna MD nicotine (Nicoderm, Step 2) 14 MG/24HR patch 1 patch, 1 patch, TransDERmal, Daily, Nickolas Marrero MD, 1 patch at 09/20/23 1601 ondansetron ODT (Zofran-ODT) disintegrating tablet 4 mg, 4 mg, Oral, q8h PRN, 4 mg at 09/21/23 0741 OR ondansetron (Zofran) injection 4 mg, 4 mg, IntraVENous, q6h PRN, Lauren Serna MD oxyCODONE (Roxicodone) immediate release tablet 5 mg, 5 mg, Oral, q6h PRN, Lauren Serna MD, 5 mg at 09/21/23 0434 PARoxetine (Paxil) tablet 30 mg, 30 mg, Oral, Daily, DB Merrill CNP, 30 mg at 09/21/23 0822 perflutren protein A microsphere (Optison) 3 mL in sodium chloride (PF) 0.9 % 10 mL IV syringe, 0-10 mL, IntraVENous, Once PRN, Lauren Serna MD polyethylene glycol (PEG) 3350 (Miralax) packet 17 g, 17 g, Oral, Daily PRN, Lauren Serna MD potassium chloride CR (Klor-Con M10) ER tablet 40 mEq, 40 mEq, Oral, BID, Nickolas Marrero MD QUEtiapine (SEROquel) tablet 100 mg, 100 mg, Oral, Nightly, Lauren Serna MD, 100 mg at 09/20/23 212 tiotropium (Spiriva Respimat) 2.5 MCG/ACT inhaler 2 puff, 2 puff, Inhalation, Daily, Nickolas Marrero MD, 2 puff at 09/21/23 0825 Physical Exam Constitutional: Comments: Grimacing at times in pain with movement Cardiovascular: Rate and Rhythm: Normal rate and regular rhythm. Pulmonary: Effort: Pulmonary effort is normal. No respiratory distress. Breath sounds: Normal breath sounds. No wheezing, rhonchi or rales. Abdominal: General: Bowel sounds are normal. There is no distension. Palpations: Abdomen is soft. Tenderness: There is no abdominal tenderness. Musculoskeletal: Right lower leg: No edema. Left lower leg: No edema. Skin: Comments: Scabbed rash over left side of low back and side Neurological: Mental Status: She is alert and oriented to person, place, and time. Psychiatric: Attention and Perception: Attention normal. Mood and Affect: Mood normal. Labs and Imaging: Recent Results (from the past 24 hour(s)) Transthoracic echocardiogram (TTE) complete with contrast, bubble, strain, and 3D PRN Collection Time: 09/20/23 3:22 PM Result Value Ref Range IVSd 1.0 (A) 0.6 - 0.9 cm LVIDd 4.4 3.9 - 5.3 cm LVIDs 3.2 cm LVOT Diameter 2.3 cm LVPWd 1.1 (A) 0.6 - 0.9 cm Global Longitudinal Strain -18.1 % EF BP 65 55 - 100 % LV Ejection Fraction A2C 60 % LV Ejection Fraction A4C 70 % LV EDV A2C 56 mL LV EDV A4C 60 mL LV EDV BP 60 56 - 104 mL LV ESV A2C 22 mL LV ESV A4C 18 mL LV ESV BP 21 19 - 49 mL LVOT Cardiac Output 6.5 liter/minute LVOT Peak Gradient 3 mmHg LVOT Mean Gradient 2 mmHg LVOT SV 78.5 ml LVOT Peak Velocity 0.9 m/s LVOT VTI 18.9 cm RV Longitudinal Dimension 5.0 cm RV Mid Dimension 2.4 cm RV Basal Dimension 2.7 cm RV Free Wall Peak S' 15 cm/s LA Diameter 2.8 cm LA Volume A/L 42 mL LA Volume 2C 36 22 - 52 mL LA Volume 4C 31 22 - 52 mL LA Volume BP 39 22 - 52 mL RA Area 4C 28.3 mL MV A Velocity 0.55 m/s MV E Wave Deceleration Time 192.4 ms MV E Velocity 0.56 m/s LV E' Lateral Velocity 12 cm/s LV E' Septal Velocity 10 cm/s TAPSE 1.9 1.7 cm TR Peak Gradient 34 mmHg TR Max Velocity 2.90 m/s IVC Diameter 1.8 cm Aortic Root 4.0 cm Fractional Shortening 2D 27 28 - 44 % LV ESV Index BP 13 mL/m2 LV EDV Index BP 38 mL/m2 LV ESV Index A4C 12 mL/m2 LV EDV Index A4C 38 mL/m2 LV ESV Index A2C 14 mL/m2 LV EDV Index A2C 36 mL/m2 LVIDd Index 2.82 cm/m2 LVIDs Index 2.05 cm/m2 LV RWT Ratio 0.50 LV Mass 2D 158.2 67 - 162 g LV Mass 2D Index 101.4 (A) 43 - 95 g/m2 MV E/A 1.02 E/E' Ratio (Averaged) 5.13 E/E' Lateral 4.67 E/E' Septal 5.60 LA Volume Index BP 25 16 - 34 ml/m2 LA Volume Index A/L 27 16 - 34 mL/m2 LVOT Stroke Volume Index 50.3 mL/m2 LVOT Area 4.2 cm2 LA Volume Index 2C 23 16 - 34 mL/m2 LA Volume Index 4C 20 16 - 34 mL/m2 LA Size Index 1.79 cm/m2 LA/AO Root Ratio 0.70 Ao Root Index 2.56 cm/m2 Aortic Sinus Valsalva 4.0 cm Aortic Sinus Valsalva Index 2.56 cm/m2 Sinotubular Junction 3.4 cm CBC auto differential Collection Time: 09/21/23 4:27 AM Result Value Ref Range Auto WBC 9.4 3.6 - 10.7 10*3/uL RBC 3.51 (L) 3.80 - 5.20 10*6/uL Hemoglobin 10.6 (L) 11.7 - 16.0 g/dL Hematocrit 33.9 (L) 35.0 - 47.0 % MCV 96.6 77.0 - 99.0 fL MCH 30.2 26.0 - 34.0 pg MCHC 31.3 30.5 - 36.0 % RDW 13.2 11.5 - 15.0 % Platelets 217 140 - 440 10*3/uL MPV 9.5 9.0 - 12.7 fL nRBC 0.0 0.0 - 2.0 /100 WBCs Neutrophils Relative 75.3 38.0 - 82.0 % Lymphocytes Relative 8.7 (L) 15.0 - 45.0 % Monocytes Relative 7.1 5.0 - 13.0 % Eosinophils Relative 8.2 (H) 0.0 - 6.0 % Basophils Relative 0.5 0.0 - 2.0 % Immature Grans % 0.2 0.0 - 2.0 % Neutrophils Absolute 7.0 1.8 - 7.5 10*3/uL Lymphocytes Absolute 0.8 (L) 1.0 - 4.3 10*3/uL Monocytes Absolute 0.7 0.0 - 0.9 10*3/uL Eosinophils Absolute 0.8 (H) 0.0 - 0.5 10*3/uL Basophils Absolute 0.1 0.0 - 0.2 10*3/uL Immature Grans Absolute 0.0 <0.1 10*3/uL Magnesium Collection Time: 09/21/23 4:27 AM Result Value Ref Range MAGNESIUM 1.5 (L) 1.6 - 2.3 mg/dL Vitamin D Deficiency Screening (Vit D 25) Collection Time: 09/21/23 4:27 AM Result Value Ref Range VIT D 25-OH, TOTAL 30 30 - 100 ng/mL TSH Collection Time: 09/21/23 4:27 AM Result Value Ref Range THYROID STIMULATING HORMONE 1.017 0.465 - 4.680 uIU/mL Vitamin B12 Collection Time: 09/21/23 4:27 AM Result Value Ref Range VITAMIN B12 735 239 - 931 pg/mL Basic metabolic panel Collection Time: 09/21/23 4:27 AM Result Value Ref Range SODIUM 139 135 - 145 mmol/L POTASSIUM 3.1 (L) 3.5 - 5.1 mmol/L CHLORIDE 102 98 - 107 mmol/L CARBON DIOXIDE 35 (H) 22 - 30 mmol/L UREA NITROGEN 18 (H) 7 - 17 mg/dL CREATININE 0.49 (L) 0.52 - 1.04 mg/dL GLUCOSE 97 70 - 100 mg/dL CALCIUM 9.1 8.4 - 10.4 mg/dL ANION GAP 2 (L) 3 - 13 mmol/L eGFR >90.0 >60.0 mL/min/1.73m*2 Lab Results Component Value Date TSH 1.017 09/21/2023 Lab Results Component Value Date [id number] 735 09/21/2023 Lab Results Component Value Date VITD25 30 09/21/2023 Reviewed: allergies, previous encounters, imaging, active problem lists, medications, and labs H: Recent Labs 09/21/23 0427 HGB 10.6* WBC 9.4 VS: Blood pressure 124/84, pulse 92, temperature 36.2 C (97.2 F), temperature source Temporal, resp. rate 16, height 1.651 m (5' 5"), weight 52.2 kg (115 lb), SpO2 91%. Complains of nausea and not feeling well. No overnight events T/L pain unchanged. PE: Sitting at side of bed w/ emesis bag NVI BLE Diffuse POP throughout T and L spine. Xray: Reviewed CT w/ radiology: Multiple mid/lower thoracic compression deformities without change from Dec 2020 scan Questionable sclerotic lesion in C7 and lucency in T1 unchanged. L1 compression deformity present in 2020, but has progressed IMP: L1 compression -- progressed from 2020. Could be new or could just have settled some from occurrence in 2020 and now stable. Thoracic kyphosis Severe osteoporosis Near syncope Weight loss of 1/3 of prior body weight PLAN: Has LSO at home. Instructed to bring in and wear prn for comfort. No further workup needed on sclerotic cervical lesion. PT/OT and mobilize as able. OK for discharge when medically stable. Lab Results Component Value Date WBC 9.4 09/21/2023 HGB 10.6 (L) 09/21/2023 HCT 33.9 (L) 09/21/2023 PLT 217 09/21/2023 Nutrition Assessment Type and Reason for Visit: Initial, Positive Nutrition Screen Nutrition Recommendations/Plan: Suggest continue Regular diet as ordered Per mnt protocol will order Ensure Plus bid (350 kcal, 20 gm prot per serving) pt encouraged to consume supplements in addition to meals -as tolerated Please document meal and supplement intakes in RN Flowsheets to better assess adequacy of nutrition Suggest standing scale weight as able -monitor wt RD to monitor po intake, labs, weight; follow up weekly Malnutrition Assessment: Malnutrition Status: Severe malnutrition Context: Chronic Illness Findings of the 6 clinical characteristics of malnutrition: Energy Intake: 75% or less estimated energy requirements for 1 month or longer Weight Loss: Greater than 7.5% over 3 months Body Fat Loss: (Moderate body fat loss) Orbital, Triceps, Fat Overlying Ribs Muscle Mass Loss: Severe muscle mass loss Temples (temporalis), Clavicles (pectoralis & deltoids), Thigh (quadraceps), Calf (gastrocnemius) Fluid Accumulation: No significant fluid accumulation Hotel Controller Strength: Not Performed Nutrition Assessment: 67 y.o. female admits after fall, syncopal episode, mild elevation of troponin/left sided chest pain, shingles, hypokalemia, COPD, Ortho assessed -exac of thoracic spine pain post fall, multiple thoracic and lumbar compression deformities, cervical thoracic vertebral lesion. per MD notes 60 lb wt loss from 170 lbs to 110 lbs in the last year (pt clarified this to be over past 10 years today) Pt reports wt loss has been gradual and trying to gain but unable. pt states drinking supplement twice daily but eating only 1 meal per day. Pt reports wt over last year from 125 lb to 115 lb (records indicate this wt loss < 2 mo) Estimated Daily Nutrient Needs: Energy Requirements Based On: Kcal/kg Weight Used for Energy Requirements: Current Weight for Energy Calculation (kg): 52 kg Total Energy Requirements (kcals/day): 9715-6150 (28-35) Weight Used for Protein Requirements: Current Weight in Kg Used for Protein Requirements: 52 kg Estimated Total Protein (g/day): 52-62 (1.0-1.2) Estimated Daily Total Fluid (ml/day): per MD Nutrition Related Findings: no edema, ?last bm, wbc 10.9, bun 28, k+3.1, meds include kcl 7/2. wt records indicate 15% loss at 9 mo and 8% loss < 2 mo Wound Type: None Wt Readings from Last 50 Encounters: 09/20/23 52.2 kg (115 lb) 08/07/23 56.7 kg (125 lb) 02/14/23 61.2 kg (135 lb) 11/06/22 59 kg (130 lb) 10/20/22 60.3 kg (133 lb) 05/22/22 66.3 kg (146 lb 2.6 oz) 04/21/22 64.4 kg (142 lb) 09/17/21 58.5 kg (129 lb) 10/20/20 63.5 kg (140 lb) 06/09/20 63.5 kg (140 lb) 02/21/20 61.7 kg (136 lb) 02/08/20 61.7 kg (136 lb) 01/31/20 61.5 kg (135 lb 8 oz) 12/07/19 64 kg (141 lb) 10/25/19 70.3 kg (155 lb) 02/22/19 65.8 kg (145 lb) Current Nutrition Therapies: Adult diet Regular Current Oral Intake Average Meal Intake: 26-50% (per pt) Average Supplements Intake: None Ordered Anthropometric Measures: Height: 165.1 cm (5' 5") Current Body Weight: 52.2 kg (115 lb) (stated) Weight Source: Stated Admission Body Weight: 52.2 kg (115 lb) Usual Body Weight: 56.7 kg (125 lb) (08/07/23 per records; 156# 11/22/[address]) % Weight Change (Calculated): -8 [place] Body Weight (lbs) (Calculated): 125 lbs [place] Body Weight (Kg) (Calculated): 57 kg % [place] Body Weight (Calculated): 92 % BMI (kg/m2) (Calculated): 19.1 BMI Categories: Underweight (BMI less than 22) age over 65 Nutrition Diagnosis: Severe malnutrition, In context of chronic illness related to catabolic illness as evidenced by poor intake prior to admission, weight loss 7.5% in 3 months, severe muscle loss, moderate loss of subcutaneous fat Nutrition Interventions: Nutrition Education/Counseling: No recommendation at this time Coordination of Nutrition Care: Continue to monitor while inpatient Plan of Care discussed with: patient Goals: Goals: PO intake 75% or greater, prior to discharge Nutrition Monitoring and Evaluation: Food/Nutrient Intake Outcomes: Food and Nutrient Intake, Supplement Intake Physical Signs/Symptoms Outcomes: Biochemical Data, Chewing or Swallowing, GI Status, Nausea or Vomiting, Fluid Status or Edema, Hemodynamic Status, Meal Time Behavior, Skin, Weight Discharge Planning: Continue current diet, Continue Oral Nutrition Supplement Mara Corona RD Contact: *[phone] or via Secure Chat Hospitalist Progress Note 09/20/2023 Subjective: Admit Date: 09/19/2023 PCP: HERMINIA CASE MD Room#: B2-261/B2-261 A BRIEF HOSPITAL COURSE: Admitted for syncopal episode and fall. Noted to have compression fracture, prolonged QTC. Recent shingles treated with valtrex and steroid Interval History: Denies any chest pain, SOB, abdominal pain. Adult diet Regular 24HR INTAKE/OUTPUT: Intake/Output Summary (Last 24 hours) at 09/20/2023 1152 Last data filed at 09/20/2023 0114 Gross per 24 hour Intake 752.08 ml Output -- Net 752.08 ml Past Medical History: Past Medical History: Diagnosis Date Abnormal stress test Allergic rhinitis Arthritis Asthma Bronchitis Cancer (CMS/HCC) (HCC) skin Cervical cancer (CMS/HCC) (HCC) Chest pain COPD (chronic obstructive pulmonary disease) (HCC) USE OXYGEN 3 L AT NIGHT DDD (degenerative disc disease), cervical Defect, retina, with detachment right DJD (degenerative joint disease), lumbar Emphysema lung (HCC) Former smoker Hematuria SCHEDULED FOR THE PROCEDURE /SURGERY ON 02/11/2017 Hypokalemia Lung nodules Near syncope 09/19/2023 Osteoporosis Palpitations Pneumonia Recurrent major depression (HCC) Sciatica Thoracic compression fracture (HCC) Vitamin D deficiency LABS: CBC: Recent Labs 09/19/23 17009/19/23 1754 09/20/23 0627 WBC 19.5* -- 10.9* RBC 4.18 -- 3.64* HGB 12.7 13.4 11.0* HCT 39.6 -- 34.8* MCV 94.7 -- 95.6 RDW 13.0 -- 12.9 PLT 339 -- 243 BMP: Recent Labs 09/19/23 1707 09/20/23 06 NA 140 137 K 2.3* 3.1* CL 93* 99 CO2 35* 33* BUN 36* 28* CREATININE 1.33* 0.73 GLUCOSE 99 94 CALCIUM 9.0 8.5 ANIONGAP 13 5 LIVER PROFILE: Recent Labs 09/19/23 170 AST 35 ALT 38* BILITOT 0.5 ALKPHOS 115 PROT 7.1 PT/INR: No results for input(s): "PROTIME", "INR" in the last 72 hours. CARDIAC ENZYMES: Recent Labs 09/19/23 1707 09/19/23 2319 09/20/23 0627 TROPONINI 0.025 0.031 0.022 Procalcitonin: No results found for: "PROCAL" COVID-19 PCR: No results for input(s): "COVID19" in the last 72 hours. Objective: Vitals: BP 110/72 (BP Location: Left arm, Patient Position: Lying) Pulse 85 Temp (!) 35.8 C (96.4 F) (Temporal) Resp 18 Ht 5' 5" (1.651 m) Wt 115 lb (52.2 kg) SpO2 92% BMI 19.14 kg/m Pulse Ox: SpO2 Av.4 % Min: 91 % Max: 95 % Supplemental O2: O2 Flow Rate (L/min): 3 L/min Physical Exam Constitutional: Appearance: Normal appearance. Cardiovascular: Rate and Rhythm: Normal rate and regular rhythm. Pulmonary: Breath sounds: Normal breath sounds. Abdominal: General: Bowel sounds are normal. Palpations: Abdomen is soft. Musculoskeletal: Right lower leg: No edema. Left lower leg: No edema. Skin: Comments: Rash left flank Neurological: Mental Status: She is alert. Medications: Scheduled PRN buPROPion XL, 150 mg, Oral, Daily calcitonin, 50 Units, IntraMUSCular, Daily clonazePAM, 0.5 mg, Oral, Nightly DULoxetine, 60 mg, Oral, Daily enoxaparin, 40 mg, SubCUTAneous, Daily gabapentin, 600 mg, Oral, Nightly mometasone-formoterol, 2 puff, Inhalation, BID montelukast, 10 mg, Oral, Nightly nicotine, 1 patch, TransDERmal, Daily QUEtiapine, 100 mg, Oral, Nightly tiotropium, 2 puff, Inhalation, Daily PRN medications: acetaminophen OR acetaminophen, lidocaine, naloxone, ondansetron ODT OR ondansetron, oxyCODONE, perflutren protein A microsphere (Optison) 3 mL in sodium chloride (PF) 0.9 % 10 mL IV syringe, polyethylene glycol (PEG) 3350 Continuous Assessment Data: (CAT1) Reviewed 1 notes from different specialty or health system (each=1). (LOW: 2x CAT1 or independent historian MOD: 3x CAT1 or 1x CAT3 EXTENSIVE: 3x CAT1 and 1x CAT3) Acute, acute on chronic, unstable/uncontrolled chronic problems/diagnoses: Fall Syncopal episode Prolonged QTC- corrected in EKG in am Mild elevation of troponin/left sided chest pain Shingles Hypokalemia Smoking Severe compression fracture of T5 and T8. Moderate compression fracture COPD Stable chronic problems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 (SGOT) 35 15 - 46 U/L ALT 38 (H) 0 - 34 U/L ALKALINE PHOSPHATASE 115 38 - 126 U/L ALBUMIN 3.9 3.5 - 5.0 g/dL BILIRUBIN, TOTAL 0.5 0.2 - 1.3 mg/dL TOTAL PROTEIN 7.1 6.3 - 8.2 g/dL eGFR 44.2 (L) >60.0 mL/min/1.73m*2 Blood gas, venous (ACH and [facility]) Collection Time: 09/19/23 5:54 PM Result Value Ref Range pH, Venous 7.398 7.320 - 7.420 pCO2, Venous 49.6 35.0 - 53.0 mm Hg pO2, Venous 50.1 mm Hg HCO3, Venous 29.9 21.0 - 30.0 mmol/L O2 Sat, Venous 85.8 % Base Excess, Venous 4.1 (H) -3.0 - 3.0 mmol/L Hgb, blood gas 13.4 Screen only g/dl TCO2, Venous 31.4 (H) 23.0 - 30.0 mmol/L Source Of Oxygen Nasal cannula Complete Urinalysis Collection Time: 09/19/23 7:33 PM Result Value Ref Range Color, Urine Yellow Lt. Yellow Clarity, Urine Clear Clear pH, Urine 5.5 5.0 - 8.0 pH Leukocytes, Urine Negative Negative Sandra/uL Nitrite, Urine Negative Negative Protein, Urine 20 (A) Negative mg/dL Glucose, Urine Normal Normal (<70) mg/dL Bilirubin, Urine Negative Negative mg/dL Ketones, Urine Negative Negative mg/dL Urobilinogen, Urine Normal Normal (0-1) mg/dL Blood, Urine Negative Negative mg/dL RBC, Urine 0-2 0 - 2 /HPF WBC, Urine 3-5 0 - 5 /HPF Squamous Epithelial, Urine 0-2 3 - 5 /HPF Non-Squamous Epithalial Cells, Urine 0-2 (A) Negative /HPF Bacteria, Urine Negative Negative /HPF Mucus, Urine Few Negative /LPF Hyaline Casts, Urine 3-5 (A) Negative /LPF SPECIFIC GRAVITY OF URINE (NUMERIC) 1.018 1.005 - 1.030 Troponin I Collection Time: 09/19/23 11:19 PM Result Value Ref Range TROPONIN I 0.031 <0.034 ng/mL Magnesium Collection Time: 09/19/23 11:19 PM Result Value Ref Range MAGNESIUM 2.7 (H) 1.6 - 2.3 mg/dL CBC auto differential Collection Time: 09/20/23 6:27 AM Result Value Ref Range Auto WBC 10.9 (H) 3.6 - 10.7 10*3/uL RBC 3.64 (L) 3.80 - 5.20 10*6/uL Hemoglobin 11.0 (L) 11.7 - 16.0 g/dL Hematocrit 34.8 (L) 35.0 - 47.0 % MCV 95.6 77.0 - 99.0 fL MCH 30.2 26.0 - 34.0 pg MCHC 31.6 30.5 - 36.0 % RDW 12.9 11.5 - 15.0 % Platelets 243 140 - 440 10*3/uL MPV 9.4 9.0 - 12.7 fL nRBC 0.0 0.0 - 2.0 /100 WBCs Neutrophils Relative 74.6 38.0 - 82.0 % Lymphocytes Relative 11.5 (L) 15.0 - 45.0 % Monocytes Relative 6.0 5.0 - 13.0 % Eosinophils Relative 7.0 (H) 0.0 - 6.0 % Basophils Relative 0.5 0.0 - 2.0 % Immature Grans % 0.4 0.0 - 2.0 % Neutrophils Absolute 8.2 (H) 1.8 - 7.5 10*3/uL Lymphocytes Absolute 1.3 1.0 - 4.3 10*3/uL Monocytes Absolute 0.7 0.0 - 0.9 10*3/uL Eosinophils Absolute 0.8 (H) 0.0 - 0.5 10*3/uL Basophils Absolute 0.1 0.0 - 0.2 10*3/uL Immature Grans Absolute 0.0 <0.1 10*3/uL Basic metabolic panel Collection Time: 09/20/23 6:27 AM Result Value Ref Range SODIUM 137 135 - 145 mmol/L POTASSIUM 3.1 (L) 3.5 - 5.1 mmol/L CHLORIDE 99 98 - 107 mmol/L CARBON DIOXIDE 33 (H) 22 - 30 mmol/L UREA NITROGEN 28 (H) 7 - 17 mg/dL CREATININE 0.73 0.52 - 1.04 mg/dL GLUCOSE 94 70 - 100 mg/dL CALCIUM 8.5 8.4 - 10.4 mg/dL ANION GAP 5 3 - 13 mmol/L eGFR >90.0 >60.0 mL/min/1.73m*2 Troponin I Collection Time: 09/20/23 6:27 AM Result Value Ref Range TROPONIN I 0.022 <0.034 ng/mL Magnesium Collection Time: 09/20/23 6:27 AM Result Value Ref Range MAGNESIUM 2.3 1.6 - 2.3 mg/dL ECG 12 lead Collection Time: 09/20/23 7:50 AM Result Value Ref Range Heart Rate 82 bpm QRSD Interval 102 ms QT Interval 382 ms QTC Interval 446 ms P [place] 46 degrees QRS [place] -35 degrees T Wave [place] 147 degrees MI Interval 142 ms Transthoracic echocardiogram (TTE) complete with contrast, bubble, strain, and 3D PRN Collection Time: 09/20/23 3:22 PM Result Value Ref Range IVSd 1.0 (A) 0.6 - 0.9 cm LVIDd 4.4 3.9 - 5.3 cm LVIDs 3.2 cm LVOT Diameter 2.3 cm LVPWd 1.1 (A) 0.6 - 0.9 cm Global Longitudinal Strain -18.1 % EF BP 65 55 - 100 % LV Ejection Fraction A2C 60 % LV Ejection Fraction A4C 70 % LV EDV A2C 56 mL LV EDV A4C 60 mL LV EDV BP 60 56 - 104 mL LV ESV A2C 22 mL LV ESV A4C 18 mL LV ESV BP 21 19 - 49 mL LVOT Cardiac Output 6.5 liter/minute LVOT Peak Gradient 3 mmHg LVOT Mean Gradient 2 mmHg LVOT SV 78.5 ml LVOT Peak Velocity 0.9 m/s LVOT VTI 18.9 cm RV Longitudinal Dimension 5.0 cm RV Mid Dimension 2.4 cm RV Basal Dimension 2.7 cm RV Free Wall Peak S' 15 cm/s LA Diameter 2.8 cm LA Volume A/L 42 mL LA Volume 2C 36 22 - 52 mL LA Volume 4C 31 22 - 52 mL LA Volume BP 39 22 - 52 mL RA Area 4C 28.3 mL MV A Velocity 0.55 m/s MV E Wave Deceleration Time 192.4 ms MV E Velocity 0.56 m/s LV E' Lateral Velocity 12 cm/s LV E' Septal Velocity 10 cm/s TAPSE 1.9 1.7 cm TR Peak Gradient 34 mmHg TR Max Velocity 2.90 m/s IVC Diameter 1.8 cm Aortic Root 4.0 cm Fractional Shortening 2D 27 28 - 44 % LV ESV Index BP 13 mL/m2 LV EDV Index BP 38 mL/m2 LV ESV Index A4C 12 mL/m2 LV EDV Index A4C 38 mL/m2 LV ESV Index A2C 14 mL/m2 LV EDV Index A2C 36 mL/m2 LVIDd Index 2.82 cm/m2 LVIDs Index 2.05 cm/m2 LV RWT Ratio 0.50 LV Mass 2D 158.2 67 - 162 g LV Mass 2D Index 101.4 (A) 43 - 95 g/m2 MV E/A 1.02 E/E' Ratio (Averaged) 5.13 E/E' Lateral 4.67 E/E' Septal 5.60 LA Volume Index BP 25 16 - 34 ml/m2 LA Volume Index A/L 27 16 - 34 mL/m2 LVOT Stroke Volume Index 50.3 mL/m2 LVOT Area 4.2 cm2 LA Volume Index 2C 23 16 - 34 mL/m2 LA Volume Index 4C 20 16 - 34 mL/m2 LA Size Index 1.79 cm/m2 LA/AO Root Ratio 0.70 Ao Root Index 2.56 cm/m2 Aortic Sinus Valsalva 4.0 cm Aortic Sinus Valsalva Index 2.56 cm/m2 Sinotubular Junction 3.4 cm No results found for: "TSH" No components found for: "B12" No results found for: "VITD25" Reviewed: active problem list, medication list, allergies, family history, social history, notes from last encounter, notes from last several encounters, lab results, imaging Follow-up: will follow with you Saad Telles, LAMINATING PRESS OPERATOR - AN/SSN 2 4 OPERATOR 09/20/23 4:58 PM Associated Order(s): IP CONSULT TO CARDIOLOGY [facility] [place] [facility] [place] Note Reason for Consult/Chief Complaint: "Syncope" Established turntable engineer: None History of Present Illness: Gonzalo Deluca is a 67 y.o. female with a long hx of falls for a variety of reasons. She has injured both UE and LE. No hx of significant head injury with these falls. There is a prior hx of R sided weakness that was dx'd as probable acute lacunar infarct by Neuro 11/2019. Hx of stage IIIc SCC cervix, s/p pelvic surgery, Staged 3C1 Rx'd chemoXRT w/cisplatin Pt says she did not pass out. Says she was in granddtr's bedroom and getting ready to walk and fell over due to loss of balance onto her left side. This fall was not as bad as others. She says she remembers falling but could not stop herself. Has occ dizziness with standing, but does not recall having syncope for a few yrs. She used to pass out when she was much younger but not recently. Has severe COPD on chronic O2-NC Assessment/Plan Fall/ Balance/ Debility. Consult for "syncope". Long hx of falls. EKG ok. Tele ok. Echo ok. No sign ACS or specific cardiac decompensation. Pt denies syncope. May have dizziness from time to time. Vitals notable for variable BP as low as 85/56, high 141/79, most other measures ok. Labile BP may contribute to risk of Sxs. May be worse with ongoing wt loss. -Avoid BP meds -Push fluids, stabilize caloric intake. -Avoid meds that lower BP -Etiology for balance issues? Central or peripheral issues vs both? Mgt per primary service; consider outpt consult Neuro -Geriatric eval Unintentional weight loss. Etiology? Pt says she has no appetite. BMI 19. 115 lbs <-125 <- 132 <- 135 (01/2023) <-130 <- 134 <-146 (05/2022) <- 140 2020. -Recommend f/u with PCP -Appetite stimulants? Re-eval for other etiologies of appetite suppression Atrial shunt. Echo suggests likely PFO. Present in 25% of the population. No other signs of substantial cardiac dysfxn. Risk of this lesion of CVA. She has made it to 67 without embolic event. This is an incidental finding. -No further w/u. COPD. O2 dependent. Stable. -outpt mgt. Hx lacunar stroke. 2019. Contributor to balance difficulty? -Med mgt. Code. Social. Lives with dtr and granddtr. Fall was in granddtr bedroom. Propre access to assistive devices? Cognitive impairment? She has had a large number of falls, apparently mechanical and due to "off balance". -Geriatric consult; address tools for stability. Mgt of polypharmacy. -Code is FULL; given falls with worsening debility, severe COPD (quit smoking) outcome, CCA should be considered and discussed with pt/family. Consider Palliative Consult for GOC. Cardiology Discharge/Sign-off Recommendations Cardiology medications to continue: [] All cardiac medications as ordered currently [x] Medications; after review of meds by Geriatrics and primary team; avoid BP agents [] Please start the following medications on discharge: [] Please stop the following medications on discharge: Followup testing recommended as an outpatient: [] To be arranged by Inpatient provider/PCP [] Will be arranged by Cardiology Cardiology followup: [x] Not needed; refer back to cardiology if there are new issues of concern. [] Recommend primary service arrange f/u with patient's outpatient turntable engineer 1-2 wks. [] Recommended; unable to arrange at this time, will arrange post-discharge [] Arranged as follows: If there are any questions/concerns, please contact the covering provider. If no answer by Secure Chat, please call the cardiology office to obtain appropriate covering RESEARCH AND DEVELOPMENT DIRECTOR/physician. Medications: buPROPion XL, 150 mg, Oral, Daily calcitonin, 50 Units, IntraMUSCular, Daily clonazePAM, 0.5 mg, Oral, Nightly DULoxetine, 60 mg, Oral, Daily enoxaparin, 40 mg, SubCUTAneous, Daily gabapentin, 600 mg, Oral, Nightly mometasone-formoterol, 2 puff, Inhalation, BID montelukast, 10 mg, Oral, Nightly nicotine, 1 patch, TransDERmal, Daily QUEtiapine, 100 mg, Oral, Nightly tiotropium, 2 puff, Inhalation, Daily Infusion Medications: Physical Examination: Vitals: 09/19/23 2343 09/20/23 0315 09/20/23 0822 09/20/23 1157 BP: 135/80 (!) 85/56 110/72 109/66 BP Location: Left arm Right arm Patient Position: Lying Sitting Pulse: 86 82 85 87 Resp: 18 16 18 18 Temp: 36.6 C (97.8 F) 36.1 C (96.9 F) (!) 35.8 C (96.4 F) 36.7 C (98.1 F) TempSrc: Temporal Temporal Temporal Temporal SpO2: 91% 95% 92% 92% Weight: Height: Intake/Output Summary (Last 24 hours) at 09/20/2023 1451 Last data filed at 09/20/2023 0114 Gross per 24 hour Intake 752.08 ml Output -- Net 752.08 ml Wt Readings from Last 3 Encounters: 09/19/23 115 lb (52.2 kg) 08/07/23 125 lb (56.7 kg) 02/14/23 135 lb (61.2 kg) Physical Exam Constitutional: No acute distress. Likely undernourished. Well hydrated Psychiatric: A &O x 3. Medical insight fair NMT: Oral mucosa is pink and moist Neck: No JVD. Respiratory: Lungs are clear Cardiac exam: Rhythm: RRR ; Normal S1 and S2 Murmur: None Other: No rub; no gallop Vasc: Peripheral pulses 2+ Abdomen: Soft, +BS Extremities: No LE edema Skin: Warm to touch and well perfused Laboratory Tests: Recent Labs 09/19/23170609/20/23 0627 NA 140 137 K 2.3* 3.1* CL 93* 99 CO2 35* 33* BUN 36* 28* CREATININE 1.33* 0.73 EGFR 44.2* >90.0 Recent Labs 09/19/23 17009/19/23 2319 09/20/23 0627 TROPONINI 0.025 0.031 0.022 Recent Labs 09/19/23 17009/19/23 1754 09/20/23 0627 WBC 19.5* -- 10.9* HGB 12.7 13.4 11.0* HCT 39.6 -- 34.8* MCV 94.7 -- 95.6 PLT 339 -- 243 Lab Results Component Value Date HGBA1C 5.1 11/22/2019 No results found for: "TSH" Lab Results Component Value Date CHOL 132 11/22/2019 Lab Results Component Value Date HDL 41 11/22/2019 No results found for: "LDLCALC" Lab Results Component Value Date TRIG 116 11/22/2019 No results found for: "CHOLHDL" No results found for: LDLCHOLESTER No results for input(s): "BNP" in the last 72 hours. No results for input(s): "INR" in the last 72 hours. Results from last 7 days Lab Units 09/19/23 1707 AST U/L 35 ALT U/L 38* No results found for: "IRON", "TIBC", "FERRITIN" Radiology: CXR: personally reviewed: Hyperexpanded lung vazquez. L chest port w/tip likely in SVC. Cardiac Tests Personally Reviewed: Last EKG 09/19/23 Impression Sinus rhythm, no ischemia/infarct Nonspecific T abnormalities, lateral leads Telemetry findings: Sinus. No arrhythmia Reports reviewed: Last Echo 09/19/23 TRANSTHORACIC ECHOCARDIOGRAM (TTE) COMPLETE (CONTRAST/BUBBLE/3D PRN) 09/20/2023 3:44 PM (Final) Interpretation Summary Left Ventricle: Left ventricle size is normal. Mildly increased wall thickness. Normal left ventricular systolic function. EF by 2D Simpsons Biplane is 65%. Global longitudinal strain is normal with a value of -18.1%. Normal wall motion. Right Ventricle: Right ventricle size is normal. Interatrial Septum: No interatrial shunt visualized on color Doppler. Agitated saline study was positive without provocation. Right to left shunt was noted. Hypermobile interatrial septum. No significant valvular abnormalities. Signed by: Srini Vital MD on 09/20/2023 3:44 PM Last Cath No results found for this or any previous visit. Last Stress Test No results found for this or any previous visit. Last EP study No results found for this or any previous visit. No results found for: "EFBP", "PLVEF", "LVEFPHYS", "LVEF2D", EF Ziyad Ovalles MD DATE of SERVICE: 09/20/2023 Associated Order(s): Inpatient consult to orthopaedic surgery-- Inpatient consult to orthopaedic surgery-- Consult performed by: Betsey Gresham MD Consult ordered by: Lauren Serna MD Consult Note Date:09/20/2023 Patient Name:Gonzalo Deluca Date of :1955 Age:67 y.o. Reason for Consult: thoracic pain Chief Complaint Chief Complaint Patient presents with Fall Pt arrived by EMS for a fall at home. EMS states she fell and hit her left side and has some rib pain. Negative LOC and not on blood thinners. Pt is on oxygen at 2lpm for COPD. Pt denies chest pain and SOB. back pain History Obtained From Patient and chart History of Present Illness This patient is well-known to our practice due to prior history of multiple spinal compression fractures and prior hip fracture. She has had an episode of thoracic pain and burning from current herpes zoster. She had a near syncopal episode yesterday and fell onto her buttocks. She presented with increasing back as well as left sided chest pain from her fall. Of note she is also lost 60 pounds going down from 170 pounds to 110 pounds in the last year. She feels that her pain is worse following her fall. She denies radiation or neurologic changes. Past Medical History Past Medical History: Diagnosis Date Abnormal stress test Allergic rhinitis Arthritis Asthma Bronchitis Cancer (CMS/HCC) ([facility]) skin Cervical cancer (CMS/HCC) ([facility]) Chest pain COPD (chronic obstructive pulmonary disease) ([facility]) USE OXYGEN 3 L AT NIGHT DDD (degenerative disc disease), cervical Defect, retina, with detachment right DJD (degenerative joint disease), lumbar Emphysema lung ([facility]) Former smoker Hematuria SCHEDULED FOR THE PROCEDURE /SURGERY ON 02/11/2017 Hypokalemia Lung nodules Near syncope 09/19/2023 Osteoporosis Palpitations Pneumonia Recurrent major depression ([facility]) Sciatica Thoracic compression fracture ([facility]) Vitamin D deficiency Past Surgical History Past Surgical History: Procedure Laterality Date CYSTOSCOPY 01/12/2017 OFFICE PROCEDURE CYSTOSCOPY 02/11/2017 C&P bladder biopsy EYE SURGERY detached retina 1994 HYSTERECTOMY 11/06/2019 ABDOMINAL RADICAL HYSTERECTOMY WITH BSO AND PELVIC LYMPH; DR. ZIYAD FISH OTHER SURGICAL HISTORY Left 12/19/2019 Med Port POWER Regular Size OTHER SURGICAL HISTORY Left 11/07/2022 Percutaneous skeltal fixation femoral fracture TUBAL LIGATION 1992 Medications Prior to Admission medications Medication Sig Start Date End Date Taking? Authorizing Provider albuterol 108 (90 Base) MCG/ACT inhaler Inhale 2 puffs every 4 hours as needed. 08/06/21 Historical Provider, alendronate (Fosamax) 70 MG tablet Take 70 mg by mouth once a week. 12/14/21 12/14/22 Historical Provider, aspirin 81 MG EC tablet Take 81 mg by mouth. 11/25/19 Historical Provider, atorvastatin (Lipitor) 40 MG tablet Take 1 tablet by mouth Nightly. 11/24/19 Historical Provider, buPROPion XL (Wellbutrin XL) 150 MG 24 hr tablet Take 150 mg by mouth in the morning. 08/06/21 08/06/22 Historical Provider, calcitonin (Miacalcin) 200 UNIT/ML injection Inject 0.25 mL (50 Units) into the shoulder, thigh, or buttocks daily. 02/19/23 Earlene Echavarria MD calcium carbonate-cholecalciferol (Oyster Shell) 250-3.125 MG-MCG tablet Take 1 tablet by mouth. Historical Provider, clonazePAM (KlonoPIN) 0.5 MG tablet Take 1 tablet by mouth Nightly. 11/24/19 Historical Provider, cyclobenzaprine (Flexeril) 10 MG tablet Take 1 tablet (10 mg) by mouth 3 times daily as needed for muscle spasms for up to 10 days. 02/18/23 02/28/23 Earlene Echavarria MD Diclofenac Sodium (Voltaren) 1 % gel Apply 4 g topically 2 times daily. 02/18/23 Earlene Echavarria MD DULoxetine (Cymbalta) [address] capsule Take 1 capsule (60 mg) by mouth daily. Do not crush or chew. 02/19/23 02/19/24 Earlene Echavarria MD fluticasone (Flonase) 50 MCG/ACT nasal spray 2 sprays in the morning. 08/06/21 08/06/22 Historical Provider, Fluticasone Furoate-Vilanterol (Breo Ellipta) 200-25 MCG/ACT aerosol powder Inhale 1 puff daily. Historical Provider, gabapentin (Neurontin) 600 MG tablet Take 1 tablet by mouth daily. 02/08/20 Historical Provider, magnesium oxide (Mag-Ox) 400 mg tablet 400 mg daily. Historical Provider, montelukast (Singulair) 10 MG tablet Take 10 mg by mouth Nightly. Historical Provider, nicotine (Nicoderm, Step 1) 21 MG/24HR patch Place 1 patch on the skin daily. Do not start before November 09, 2022. 11/09/22 12/09/22 Raul Whipple, tiotropium (Spiriva Respimat) 2.5 MCG/ACT inhaler Inhale 2 puffs in the morning. 11/20/21 Historical Provider, Zinc 50 MG capsule Take 50 mg by mouth. Historical Provider, Allergies Pollen extract Social History reports that she quit smoking about 12 years ago. Her smoking use included cigarettes. She has never used smokeless tobacco. She reports that she does not currently use alcohol. She reports that she does not use drugs. Family History Family History Problem Relation Name Age of Onset Colon cancer Neg Hx Ovarian cancer Neg Hx Cancer Mother breast- to liver Cancer Sister breast Cancer Father lung to brain No Known Problems Brother Uterine cancer Neg Hx Review of Systems See H&P Physical Exam BP 110/72 (BP Location: Left arm, Patient Position: Lying) Pulse 85 Temp (!) 35.8 C (96.4 F) (Temporal) Resp 18 Ht 1.651 m (5' 5") Wt 52.2 kg (115 lb) SpO2 92% BMI 19.14 kg/m General: Well-developed, chronically ill-appearing, on oxygen and appears her stated age of 67. She is lying in the lateral decubitus position comfortable and in no acute distress. Neurologic: Alert and oriented x 3. Mood and affect normal. Sensory exams intact to light touch bilateral lower extremities. Vascular: No cyanosis, clubbing or edema to both lower extremities. Pulses intact. Musculoskeletal: Severe thoracic kyphosis. Diffuse pain on palpation about the thoracic spine. Distal motor functions intact. Skin: Extensive zoster lesions on the thoracic spine. Photographic documentation is present in her chart. Labs CBC: Recent Labs 09/19/23170609/19/23 1754 09/20/23 0627 WBC 19.5* -- 10.9* RBC 4.18 -- 3.64* HGB 12.7 13.4 11.0* HCT 39.6 -- 34.8* MCV 94.7 -- 95.6 RDW 13.0 -- 12.9 PLT 339 -- 243 CHEMISTRIES: Recent Labs 09/19/23 17009/19/23 2319 09/20/23 0627 NA 140 -- 137 K 2.3* -- 3.1* CL 93* -- 99 CO2 35* -- 33* BUN 36* -- 28* CREATININE 1.33* -- 0.73 GLUCOSE 99 -- 94 MG -- 2.7* 2.3 PT/INR:No results for input(s): "PROTIME", "INR" in the last 72 hours. APTT:No results for input(s): "APTT" in the last 72 hours. LIVER PROFILE: Recent Labs 09/19/23 170 AST 35 ALT 38* BILITOT 0.5 ALKPHOS 115 Imaging/Diagnostics Reviewed x-rays include: CT scan of the cervical spine shows moderate to severe degenerative disc disease throughout the cervical spine and mild to severe foraminal stenosis at multiple levels. There is a C7 sclerotic lesion in the vertebral body that could be a bone island. Further imaging is recommended. CT scan of the thoracic spine shows a severe kyphosis of 90 degrees. Multiple thoracic and lumbar compression deformities are present of age-indeterminate. Question of posterior vertebral body T1 sclerotic lesion but this could be the C7 lesion and just a variation in enumeration. Assessment 1. Exacerbation of thoracic spine pain post fall 2. Multiple thoracic and lumbar compression deformities, age-indeterminate 3. Cervical thoracic vertebral lesion 4. Significant weight loss 5. Thoracic herpes zoster Plan 1. I need to review her imaging with radiology to compare the old films to new film to determine acuity. If necessary an MRI will be ordered. I also discussed with them the benefit of bone scan versus MRI to evaluate the cervical thoracic lesion. In the meantime, PT and OT have been ordered. This can proceed pending the workup as mentioned above. Thank you for the consult we will follow with you. documented in this encounter [facility] 09-21-2023 Telephone encounter Note Orders or will Dr. Case follow? She will follow. We don't typically give home care orders. Melva Juárez PA-C [facility] 09-21-2023 Telephone encounter Note Ashley from [facility] Patient currently admitted for falls Need orders to follow for Home Care Call back number: [phone] [facility] 09-21-2023 Note Formatting of this n ote is different from the original. Images from the original note were not included. Care Management Progress Note Chart reviewed. Patient remains on 2 east for treatment of falls and lumbar compression. Has LSO brace at home (per Ortho notes). Geriatrics following. PT recommends return home with home care. business liaison officer following. Currently on 3 liters oxygen; wears 2.5-3 liters at home. DC plan: home with daughter and home care, MONTE[place]O following. Discharge Milestones and Delays Expected date/time: 09/23/[address] discharge order Complete med reconciliation Case mgmt discharge readiness Clinical Stability Diagnostic Workup Patient Education Complete Expected Discharge History Expected Date/Time Set By Reviewed At 09/23/2023 SATURNINO Diaz 09/21/2023 9:03 AM 09/19- Ortho following for fractured vertebrae. On 3 liters. Up independently. 703- Still on 3L. In a lot of pain still. Home with daughter," 09/23/2023 SATURNINO Diaz 09/21/2023 9:02 AM 09/19- Ortho following for fractured vertebrae. On 3 liters. Up independently. 703- Still on 3L. In a lot of pain still. Home with daughter,Added blood pressure meds." 09/23/2023 SATURNINO Diaz 09/20/2023 9:21 AM 09/19- Ortho following for fractured vertebrae. On 3 liters. Up independently." 09/23/2023 Carolina Alvarez RN 09/20/2023 8:29 AM 09/23/2023 Heydi Ceballos MD 09/19/2023 8:42 PM 09/23/2023 Heydi Ceballos MD 09/19/2023 6:48 PM Length of Stay (Days): 2 GMLOS: No GMLOS Documented T [facility] 09-21-2023 Note Formatting of this n ote is different from the original. Images from the original note were not included. Care Management Progress Note Chart reviewed. Patient remains on 2 east for treatment of falls and lumbar compression. Has LSO brace at home (per Ortho notes). Geriatrics following. PT recommends return home with home care. business liaison officer following. Currently on 3 liters oxygen; wears 2.5-3 liters at home. DC plan: home with daughter and home care, MONTEIRO following. Discharge Milestones and Delays Expected date/time: 09/23/[address] discharge order Complete med reconciliation Case mgmt discharge readiness Clinical Stability Diagnostic Workup Patient Education Complete Expected Discharge History Expected Date/Time Set By Reviewed At 09/23/2023 Virginia Rao, SATURNINO 09/21/2023 9:03 AM 09/19- Ortho following for fractured vertebrae. On 3 liters. Up independently. 703- Still on 3L. In a lot of pain still. Home with daughter," 09/23/2023 Virginia Jalen, MACHINIST OUTSIDE 09/21/2023 9:02 AM 09/19- Ortho following for fractured vertebrae. On 3 liters. Up independently. 703- Still on 3L. In a lot of pain still. Home with daughter,Added blood pressure meds." 09/23/2023 SATURNINO Diaz 09/20/2023 9:21 AM 09/19- Ortho following for fractured vertebrae. On 3 liters. Up independently." 09/23/2023 Carolina Alvarez RN 09/20/2023 8:29 AM 09/23/2023 Heydi Ceballos MD 09/19/2023 8:42 PM 09/23/2023 Heydi Ceballos MD 09/19/2023 6:48 PM Length of Stay (Days): 2 GMLOS: No GMLOS Documented [facility] 09-21-2023 Note Formatting of this n ote is different from the original. Start PACC Note Home Health Referral Educated patient and daughter, Karishma, on Home Care and services available. Patient offered choice of available HHC and agreeable to SN, PT services with [facility]. Care Types: None Isolation Precautions: No active isolations Social Determinates of Health: Tobacco Use: Medium Risk (09/19/2023) Patient History Smoking Tobacco Use: Former Smokeless Tobacco Use: Never Passive Exposure: Not on file Social History Substance and Sexual Activity Alcohol Use Not Currently Comment: Approx once a year Social History Substance and Sexual Activity Drug Use No Does the patient have any financial resource strain? No Does the patient have any food insecurities? No Does the patient have any housing instabilities? No If any of the above is noted as yes - consider a DIRECTOR OF ROOMS evaluation once the patient returns home. START PATIENT REGISTRATION INFORMATION Order Information Order Signing Physician: Nickolas Marrero MD Service Ordered RN ?: Yes Service Ordered PT ?: Yes Service Ordered OT ?: No Service Ordered ST ?: No Service Ordered DIRECTOR OF ROOMS?:No Service Ordered COMMUNITY SERVICES COORDINATOR?: No Following Physician: HERMINIA CASE MD Following Physician Overseeing Physician: HERMINIA CASE MD (Required for Residents only) Agreeable to Follow? Yes Date/Time of Call 09/21/23 2:04 PM, Spoke with: yes per call back received from office . Care Coordination Same Day SOC?: No Primary Care Physician: HERMINIA CASE MD Primary Care Physician Primary Care Physician Address: [address] [place] [id number] Visit Instructions: N/A Service Discharge Location Type: Home with Home Health Care Service Facility Name: N/A Service Floor Facility: N/A Service Room No: N/A Demographics Patient Last Name: Yosi Patient First Name: Gonzalo Language/Communication Barrier: DAUGHTER KARISHMA IS CONTACT Service Address: [address] [place], [place] [address] Service City: [facility]: [place] Service ZIP: [address] Service Other phone numbers: Telephone Information: Emergency Contact: Extended Emergency Contact Information Primary Emergency Contact: Karishma Deluca Address: [address] [place], [place] [address] [address] [facility] Mobile Relation: Daughter Secondary Emergency Contact: Jace Deluca Mobile Relation: Son Admission Information Admit Date: 09/19/2023 Patient status at discharge: Inpatient Admitting Diagnosis: Near syncope [R55] Closed head injury, initial encounter [S09.90XA] Fall, initial encounter [W19.XXXA] Compression fracture of T7 vertebra, initial encounter (HCC) [S22.060A] Compression fracture of T8 vertebra, initial encounter ([facility]) [S22.060A] Compression fracture of T5 vertebra, initial encounter ([facility]) [S22.050A] Compression fracture of L1 vertebra, initial encounter ([facility]) [S32.010A] Caregiver Information Caregiver First Name: NA Caregiver Last Name: NA Caregiver Relationship to Patient NA Caregiver Phone Number: NA Caregiver Notes: N/A [employer] List No END PATIENT REGISTRATION INFORMATION Pt Home Health goal To return home and avoid readmission to the hospital by increasing disease process education and preventing falls. COVID Status 1. Do you have any upper respiratory symptoms (cough, SOB, Fever)? No 2. Have you been exposed to anyone with COVID-19 Virus? No Answer only if pending or positive for COVID-19? 1. Agreeable to wear PPE at each visit? No 2. Is the hospital supplying them with PPE upon Discharge? No Start PACC Summary General Report/ Additional Comments Acute, acute on chronic, unstable/uncontrolled chronic problems/diagnoses: Falls/debility - PT/OT ?Syncopal episode - cardiology consulted- likely related to balance, debility and polypharmacy - ECHO- EF 65%, no valvular abnormality - prolonged QTC on admission, corrected on repeat EKG Mild elevation of troponin/left sided chest pain - ECHO no wall motion abnormality, cardiology on board. Shingles , recent- stable Hypokalemia- corrected Smoking COPD and chronic respiratory failure on home oxygen 2-3 lit/NC- stable Severe compression fracture of T5 and T8. Moderate compression fracture L1. Moderated compression deformity T7- ortho consulted, back brace as needed. Polypharmacy- geriatrics and psych consulted, see recs. Stable chronic problems affecting care, new non-acute diagnoses: Discharge Date: TBD Referral Source-PACC: (Hospital/Unit): [facility] / B2-261/B2-261 A End PACC Note [facility] 09-21-2023 Note Formatting of this n ote is different from the original. Start PACC Note Home Health Referral Educated patient and daughter, Karishma, on Home Care and services available. Patient offered choice of available HHC and agreeable to SN, PT services with [facility]. Care Types: None Isolation Precautions: No active isolations Social Determinates of Health: Tobacco Use: Medium Risk (09/19/2023) Patient History Smoking Tobacco Use: Former Smokeless Tobacco Use: Never Passive Exposure: Not on file Social History Substance and Sexual Activity Alcohol Use Not Currently Comment: Approx once a year Social History Substance and Sexual Activity Drug Use No Does the patient have any financial resource strain? No Does the patient have any food insecurities? No Does the patient have any housing instabilities? No If any of the above is noted as yes - consider a DIRECTOR OF ROOMS evaluation once the patient returns home. START PATIENT REGISTRATION INFORMATION Order Information Order Signing Physician: Nickolas Marrero MD Service Ordered RN ?: Yes Service Ordered PT ?: Yes Service Ordered OT ?: No Service Ordered ST ?: No Service Ordered DIRECTOR OF ROOMS?:No Service Ordered COMMUNITY SERVICES COORDINATOR?: No Following Physician: HERMINIA CASE MD Following Physician Overseeing Physician: HERMINIA CASE MD (Required for Residents only) Agreeable to Follow? Yes Date/Time of Call 09/21/23 2:04 PM, Spoke with: yes per call back received from office . Care Coordination Same Day SOC?: No Primary Care Physician: HERMINIA CASE MD Primary Care Physician Primary Care Physician Address: [address] [place] [id number] Visit Instructions: N/A Service Discharge Location Type: Home with Home Health Care Service Facility Name: N/A Service Floor Facility: N/A Service Room No: N/A Demographics Patient Last Name: Yosi Patient First Name: Gonzalo Language/Communication Barrier: DAUGHTER KARISHMA IS CONTACT Service Address: [address] [place], [place] [address] [facility] City: [facility]: [place] Service ZIP: [address] Service Other phone numbers: Telephone Information: Emergency Contact: Extended Emergency Contact Information Primary Emergency Contact: Karishma Deluca Address: [address] [place] [address] [place], [place] [id number] [place] [address] Mobile Relation: Daughter Secondary Emergency Contact: Jace Deluca Mobile Relation: Son Admission Information Admit Date: 09/19/2023 Patient status at discharge: Inpatient Admitting Diagnosis: Near syncope [R55] Closed head injury, initial encounter [S09.90XA] Fall, initial encounter [W19.XXXA] Compression fracture of T7 vertebra, initial encounter ([facility]) [S22.060A] Compression fracture of T8 vertebra, initial encounter ([facility]) [S22.060A] Compression fracture of T5 vertebra, initial encounter ([facility]) [S22.050A] Compression fracture of L1 vertebra, initial encounter ([facility]) [S32.010A] Caregiver Information Caregiver First Name: NA Caregiver Last Name: NA Caregiver Relationship to Patient NA Caregiver Phone Number: NA Caregiver Notes: N/A [employer] List No END PATIENT REGISTRATION INFORMATION Pt Home Health goal To return home and avoid readmission to the hospital by increasing disease process education and preventing falls. COVID Status 1. Do you have any upper respiratory symptoms (cough, SOB, Fever)? No 2. Have you been exposed to anyone with COVID-19 Virus? No Answer only if pending or positive for COVID-19? 1. Agreeable to wear PPE at each visit? No 2. Is the hospital supplying them with PPE upon Discharge? No Start PACC Summary General Report/ Additional Comments Acute, acute on chronic, unstable/uncontrolled chronic problems/diagnoses: Falls/debility - PT/OT ?Syncopal episode - cardiology consulted- likely related to balance, debility and polypharmacy - ECHO- EF 65%, no valvular abnormality - prolonged QTC on admission, corrected on repeat EKG Mild elevation of troponin/left sided chest pain - ECHO no wall motion abnormality, cardiology on board. Shingles , recent- stable Hypokalemia- corrected Smoking COPD and chronic respiratory failure on home oxygen 2-3 lit/NC- stable Severe compression fracture of T5 and T8. Moderate compression fracture L1. Moderated compression deformity T7- ortho consulted, back brace as needed. Polypharmacy- geriatrics and psych consulted, see recs. Stable chronic problems affecting care, new non-acute diagnoses: Discharge Date: TBD Referral Source-PACC: (Hospital/Unit): [facility] / B2-261/B2-261 A End PACC Note [facility] 09-21-2023 Plan of care note The patient is Moderately Unstable - Medium risk of patient condition declining or worsening The patient's goals for the shift include safety and comfort The clinical goals for the shift include safety [facility] 09-20-2023 Consult note Associated Order (s): IP CONSULT TO GERIATRICS [facility] Geriatric Medicine Inpatient Consult Service Admission Date: 09/19/2023 Admission Status: INPATIENT Chief Complaint: back pain Reason for Appointment Geriatrics consulted for fall, polypharmacy, labile BP Assessment & Plan Principal Problem: Near syncope Active Problems: Severe malnutrition (CMS/HCC) (HCC) Polypharmacy (History per patient and review of dispense report) -Wellbutrin - taking for a year. -Duloxetine - no longer taking. Will DC. -Cyclobenzaprine - taking 5mg about weekly. Recommend not restarting due to risk of falls and confusion. -Mirtazapine - taking 15mg at HS. Some improvement in appetite. Will resume. -Paroxetine - taking 40mg. Recommend slow wean, will decrease to 30mg daily. At risk for anticholinergic side effects (falls, confusion). -Buspar - taking 15mg TID - will resume to avoid withdrawal. -Quetiapine - taking 200mg at HS for sleep. Started Nov 2022. Currently on 100mg at HS-will continue. -Oxycodone-Acetaminophen - takes 5/325mg 4 times a day for 8-10 years. Agree with current dose of Oxycodone 5mg every 6 hours as needed. -would be beneficial to speak with family regarding any cognitive concerns. Will attempt 09/20. Anxiety History of reported panic attacks -will consult psychiatry to review medications and establish care -patient reports failing trials of Duloxetine and Sertraline -see polypharmacy above Debility -contributing factors include COPD, osteoporosis, anxiety, chronic pain, polypharmacy -Vit D 37 in Jan 2023, will recheck -check TSH and B12 -PT and OT - eval pending -patient may need increased assistance at home Chronic pain -start Tylenol 650mg TID. Hepatic panel reviewed - ALT slightly elevated 38 -continue Oxycodone IR PRN At risk for delirium --Risk factors: head trauma, pain, advanced age, sensory impairments, acute illness, high risk medications, and baseline cognitive deficits --Encourage PO intake, time up in chair, family visits, supervised ambulation, and sleep hygiene --If agitated, assess for and consider treating for pain --QTc= 446 --No antipsychotic unless patient is danger to self/others/treatment --Start PRN melatonin at HS --Monitor for constipation/urinary retention - last BM unknown --Possible medication contributions: see polypharmacy I spent total time of 70 minutes face to face with the patient and/or family discussing the diagnosis and importance of compliance with the treatment plan as well as documenting on the day of the visit. In addition, that total time includes the following: -Reviewing previous notes, -Reviewing labs, -Obtaining and/or reviewing separately obtained history, -Ordering prescription medications, tests and procedures, -Communicating results to the patient/family/caregiver, -Counseling/educating the patient/family/caregiver, -Documenting clinical information in the patients electronic record, and -Performing a medically appropriate exam and/or evaluation Subjective: HPI 67 y.o. year-old female with PMH of asthma, skin cancer, Cervical cancer, COPD (uses 3 L at night), DDD, DJD, Former smoker, lung nodules, osteoporosis, depression, Vit D deficiency, Osteoporosis presented to [facility] on 09/19/23 for fall. Found to have prolonged QT interval, hypokalemia, WBC 19.5, CT showed multiple recent midthoracic compression fractures and likely remote lumbar compression fracture. Noted with weight loss 170 lbs to 110 lbs over past year Recently on valtrex for shingles diagnosed 09/07 Found to have small hematoma on right occiput Ortho consulted - thoracic and lumbar compression deformities, age-indeterminate. Cervical thoracic vertebral lesion. Plan to do bone scan versus MRI. Case management - lives with daughter and granddaughter. Uses a cane for mobility, independent in other ADLs. Daughter assists with cleaning and cooking. Manages own medications. Nursing Delirium Screen (Nu-Desc): Nursing Delirium Symptom Checklist Total Score: 0 Conversation with patient: -lives with daughter who works during day. -Patient states her appetite is better in hospital since there are more choices. Daughter cooks in evening. -Manages own medications - pulls them up on her phone. Some forgetfulness about meds without list. -Reports falling at home due to loss of balance. Did not pass out. -Report about 2-3 falls this year, 3-4 last year. -Has anxiety and panic attacks. Failed treatment with Duloxetine and Sertraline. -takes Percocet 5/325mg 4 times a day for 8-10 years -on Seroquel for 6-8 months, takes for sleep -Has tried Benadryl, Melatonin, CBD gummies to help with sleep -states she was going to set up Psychiatry appointment Conversation with caregiver: will attempt 09/20 . Advance Care Planning Healthcare Power of Pond Supervisor: Unknown Financial Power of Pond Supervisor: Unknown Living Will:Unknown Code Status: Full Code Allergies Allergen Reactions Pollen Extract Unknown Current Facility-Administered Medications: acetaminophen (Tylenol) tablet 650 mg, 650 mg, Oral, q6h PRN OR acetaminophen (Tylenol) suppository 650 mg, 650 mg, Rectal, q6h PRN, Lauren Serna MD buPROPion XL (Wellbutrin XL) 24 hr tablet 150 mg, 150 mg, Oral, Daily, Lauren Serna MD, 150 mg at 09/20/23 1043 calcitonin (Miacalcin) injection 50 Units, 50 Units, IntraMUSCular, Daily, Lauren Serna MD DULoxetine (Cymbalta) DR capsule 60 mg, 60 mg, Oral, Daily, Lauren Serna MD, 60 mg at 09/20/23 1043 enoxaparin (Lovenox) syringe 40 mg, 40 mg, SubCUTAneous, Daily, Lauren Serna MD, 40 mg at 09/20/23 1043 lidocaine (LMX) 4 % cream, , Topical, PRN, Lauren Serna MD mometasone-formoterol (Dulera 200) 200-5 MCG/ACT inhaler 2 puff, 2 puff, Inhalation, BID, Lauren Serna MD montelukast (Singulair) tablet 10 mg, 10 mg, Oral, Nightly, Lauren Serna MD, 10 mg at 09/20/23 0013 naloxone (Narcan) injection 0.4 mg, 0.4 mg, IntraVENous, q5 min PRN, Lauren Serna MD nicotine (Nicoderm, Step 2) 14 MG/24HR patch 1 patch, 1 patch, TransDERmal, Daily, Nickolas Marrero MD, 1 patch at 09/20/23 1601 ondansetron ODT (Zofran-ODT) disintegrating tablet 4 mg, 4 mg, Oral, q8h PRN OR ondansetron (Zofran) injection 4 mg, 4 mg, IntraVENous, q6h PRN, Lauren Serna MD oxyCODONE (Roxicodone) immediate release tablet 5 mg, 5 mg, Oral, q6h PRN, Lauren Serna MD, 5 mg at 09/20/23 1043 perflutren protein A microsphere (Optison) 3 mL in sodium chloride (PF) 0.9 % 10 mL IV syringe, 0-10 mL, IntraVENous, Once PRN, Lauren Serna MD polyethylene glycol (PEG) 3350 (Miralax) packet 17 g, 17 g, Oral, Daily PRN, Lauren Serna MD QUEtiapine (SEROquel) tablet 100 mg, 100 mg, Oral, Nightly, Lauren Serna MD, 100 mg at 09/20/23 0014 tiotropium (Spiriva Respimat) 2.5 MCG/ACT inhaler 2 puff, 2 puff, Inhalation, Daily, Nickolas Marrero MD, 2 puff at 09/20/23 1400 Past Medical History: Diagnosis Date Abnormal stress test Allergic rhinitis Arthritis Asthma Bronchitis Cancer (CMS/HCC) ([facility]) skin Cervical cancer (CMS/HCC) ([facility]) Chest pain COPD (chronic obstructive pulmonary disease) ([facility]) USE OXYGEN 3 L AT NIGHT DDD (degenerative disc disease), cervical Defect, retina, with detachment right DJD (degenerative joint disease), lumbar Emphysema lung ([facility]) Former smoker Hematuria SCHEDULED FOR THE PROCEDURE /SURGERY ON 02/11/2017 Hypokalemia Lung nodules Near syncope 09/19/2023 Osteoporosis Palpitations Pneumonia Recurrent major depression ([facility]) Sciatica Thoracic compression fracture ([facility]) Vitamin D deficiency Past Surgical History: Procedure Laterality Date CYSTOSCOPY 01/12/2017 OFFICE PROCEDURE CYSTOSCOPY 02/11/2017 C&P bladder biopsy EYE SURGERY detached retina 1994 HYSTERECTOMY 11/06/2019 ABDOMINAL RADICAL HYSTERECTOMY WITH BSO AND PELVIC LYMPH; DR. ZIYAD FISH OTHER SURGICAL HISTORY Left 12/19/2019 Med Port POWER Regular Size OTHER SURGICAL HISTORY Left 11/07/2022 Percutaneous skeltal fixation femoral fracture TUBAL LIGATION 1992 Social History Tobacco Use Smoking status: Former Current packs/day: 0.00 Types: Cigarettes Quit date: 09/20/2011 Years since quittin.0 Smokeless tobacco: Never Tobacco comments: Quit smoking: pt states she quit 4-5 years ago Substance Use Topics Alcohol use: Not Currently Comment: Approx once a year Social History Social History Narrative Not on file Family History Family History Problem Relation Name Age of Onset Colon cancer Neg Hx Ovarian cancer Neg Hx Cancer Mother breast- to liver Cancer Sister breast Cancer Father lung to brain No Known Problems Brother Uterine cancer Neg Hx Family Status Relation Name Status Neg Hx (Not Specified) Mother Sister Alive Father Brother Alive No partnership data on file Family history reviewed as above Review of Systems Constitutional: Negative for fatigue. HENT: Negative for congestion. Respiratory: Negative for shortness of breath. Gastrointestinal: Negative for abdominal pain, constipation, diarrhea and nausea. Genitourinary: Negative for difficulty urinating. Musculoskeletal: Positive for back pain and gait problem. Neurological: Positive for dizziness (at times when up walking). Psychiatric/Behavioral: Positive for sleep disturbance. Functional Status Prior to Admission: (I: Independent, A: Assisted, D: Dependent) ADLs I A D Notes Bathing [x] [] [] Dressing [x] [] [] Toileting [x] [] [] Transfers [x] [] [] Feeding [x] [] [] Ambulation [] [] [] Assistive devices: straight cane IADLs I A D Telephone [x] [] [] Transportation [] [] [x] Shopping [] [] [] Meal prep [] [x] [] Housework [] [] [] Medications [x] [] [] Finances [] [] [] Objective: BP 101/71 (BP Location: Right arm, Patient Position: Lying) Pulse 87 Temp (!) 35.7 C (96.3 F) (Temporal) Resp 18 Ht 5' 5" (1.651 m) Wt 115 lb (52.2 kg) SpO2 92% BMI 19.14 kg/m Intake/Output Summary (Last 24 hours) at 09/20/2023 1658 Last data filed at 09/20/2023 0114 Gross per 24 hour Intake 752.08 ml Output -- Net 752.08 ml Wt Readings from Last 3 Encounters: 09/20/23 115 lb (52.2 kg) 08/07/23 125 lb (56.7 kg) 02/14/23 135 lb (61.2 kg) Physical Exam Constitutional: General: She is not in acute distress. HENT: Mouth/Throat: Mouth: Mucous membranes are moist. Cardiovascular: Rate and Rhythm: Normal rate and regular rhythm. Pulmonary: Effort: Pulmonary effort is normal. No respiratory distress. Breath sounds: Normal breath sounds. Abdominal: General: Bowel sounds are normal. There is no distension. Palpations: Abdomen is soft. Tenderness: There is no abdominal tenderness. Musculoskeletal: Right lower leg: No edema. Left lower leg: No edema. Neurological: Mental Status: She is alert and oriented to person, place, and time. Psychiatric: Mood and Affect: Mood normal. Comments: Some trouble remembering medications, pulled up my chart on her phone Labs and Imaging: Recent Results (from the past 24 hour(s)) ECG 12 lead Collection Time: 09/19/23 5:05 PM Result Value Ref Range Heart Rate 97 bpm QRSD Interval 103 ms QT Interval 468 ms QTC Interval 594 ms P [place] 25 degrees QRS [place] -48 degrees T Wave [place] 0 degrees MI Interval 140 ms CBC auto differential Collection Time: 09/19/23 5:07 PM Result Value Ref Range Auto WBC 19.5 (H) 3.6 - 10.7 10*3/uL RBC 4.18 3.80 - 5.20 10*6/uL Hemoglobin 12.7 11.7 - 16.0 g/dL Hematocrit 39.6 35.0 - 47.0 % MCV 94.7 77.0 - 99.0 fL MCH 30.4 26.0 - 34.0 pg MCHC 32.1 30.5 - 36.0 % RDW 13.0 11.5 - 15.0 % Platelets 339 140 - 440 10*3/uL MPV 9.3 9.0 - 12.7 fL nRBC 0.0 0.0 - 2.0 /100 WBCs Neutrophils Relative 86.1 (H) 38.0 - 82.0 % Lymphocytes Relative 6.5 (L) 15.0 - 45.0 % Monocytes Relative 5.1 5.0 - 13.0 % Eosinophils Relative 1.5 0.0 - 6.0 % Basophils Relative 0.2 0.0 - 2.0 % Immature Grans % 0.6 0.0 - 2.0 % Neutrophils Absolute 16.8 (H) 1.8 - 7.5 10*3/uL Lymphocytes Absolute 1.3 1.0 - 4.3 10*3/uL Monocytes Absolute 1.0 (H) 0.0 - 0.9 10*3/uL Eosinophils Absolute 0.3 0.0 - 0.5 10*3/uL Basophils Absolute 0.0 0.0 - 0.2 10*3/uL Immature Grans Absolute 0.1 (H) <0.1 10*3/uL Troponin, with Serial Reflex Collection Time: 09/19/23 5:07 PM Result Value Ref Range TROPONIN I 0.025 <0.034 ng/mL Comprehensive metabolic panel Collection Time: 09/19/23 5:07 PM Result Value Ref Range SODIUM 140 135 - 145 mmol/L POTASSIUM 2.3 (LL) 3.5 - 5.1 mmol/L CHLORIDE 93 (L) 98 - 107 mmol/L CARBON DIOXIDE 35 (H) 22 - 30 mmol/L ANION GAP 13 3 - 13 mmol/L UREA NITROGEN 36 (H) 7 - 17 mg/dL CREATININE 1.33 (H) 0.52 - 1.04 mg/dL GLUCOSE 99 70 - 100 mg/dL CALCIUM 9.0 8.4 - 10.4 mg/dL AST (SGOT) 35 15 - 46 U/L ALT 38 (H) 0 - 34 U/L ALKALINE PHOSPHATASE 115 38 - 126 U/L ALBUMIN 3.9 3.5 - 5.0 g/dL BILIRUBIN, TOTAL 0.5 0.2 - 1.3 mg/dL TOTAL PROTEIN 7.1 6.3 - 8.2 g/dL eGFR 44.2 (L) >60.0 mL/min/1.73m*2 Blood gas, venous (ACH and [facility]) Collection Time: 09/19/23 5:54 PM Result Value Ref Range pH, Venous 7.398 7.320 - 7.420 pCO2, Venous 49.6 35.0 - 53.0 mm Hg pO2, Venous 50.1 mm Hg HCO3, Venous 29.9 21.0 - 30.0 mmol/L O2 Sat, Venous 85.8 % Base Excess, Venous 4.1 (H) -3.0 - 3.0 mmol/L Hgb, blood gas 13.4 Screen only g/dl TCO2, Venous 31.4 (H) 23.0 - 30.0 mmol/L Source Of Oxygen Nasal cannula Complete Urinalysis Collection Time: 09/19/23 7:33 PM Result Value Ref Range Color, Urine Yellow Lt. Yellow Clarity, Urine Clear Clear pH, Urine 5.5 5.0 - 8.0 pH Leukocytes, Urine Negative Negative Sandra/uL Nitrite, Urine Negative Negative Protein, Urine 20 (A) Negative mg/dL Glucose, Urine Normal Normal (<70) mg/dL Bilirubin, Urine Negative Negative mg/dL Ketones, Urine Negative Negative mg/dL Urobilinogen, Urine Normal Normal (0-1) mg/dL Blood, Urine Negative Negative mg/dL RBC, Urine 0-2 0 - 2 /HPF WBC, Urine 3-5 0 - 5 /HPF Squamous Epithelial, Urine 0-2 3 - 5 /HPF Non-Squamous Epithalial Cells, Urine 0-2 (A) Negative /HPF Bacteria, Urine Negative Negative /HPF Mucus, Urine Few Negative /LPF Hyaline Casts, Urine 3-5 (A) Negative /LPF SPECIFIC GRAVITY OF URINE (NUMERIC) 1.018 1.005 - 1.030 Troponin I Collection Time: 09/19/23 11:19 PM Result Value Ref Range TROPONIN I 0.031 <0.034 ng/mL Magnesium Collection Time: 09/19/23 11:19 PM Result Value Ref Range MAGNESIUM 2.7 (H) 1.6 - 2.3 mg/dL CBC auto differential Collection Time: 09/20/23 6:27 AM Result Value Ref Range Auto WBC 10.9 (H) 3.6 - 10.7 10*3/uL RBC 3.64 (L) 3.80 - 5.20 10*6/uL Hemoglobin 11.0 (L) 11.7 - 16.0 g/dL Hematocrit 34.8 (L) 35.0 - 47.0 % MCV 95.6 77.0 - 99.0 fL MCH 30.2 26.0 - 34.0 pg MCHC 31.6 30.5 - 36.0 % RDW 12.9 11.5 - 15.0 % Platelets 243 140 - 440 10*3/uL MPV 9.4 9.0 - 12.7 fL nRBC 0.0 0.0 - 2.0 /100 WBCs Neutrophils Relative 74.6 38.0 - 82.0 % Lymphocytes Relative 11.5 (L) 15.0 - 45.0 % Monocytes Relative 6.0 5.0 - 13.0 % Eosinophils Relative 7.0 (H) 0.0 - 6.0 % Basophils Relative 0.5 0.0 - 2.0 % Immature Grans % 0.4 0.0 - 2.0 % Neutrophils Absolute 8.2 (H) 1.8 - 7.5 10*3/uL Lymphocytes Absolute 1.3 1.0 - 4.3 10*3/uL Monocytes Absolute 0.7 0.0 - 0.9 10*3/uL Eosinophils Absolute 0.8 (H) 0.0 - 0.5 10*3/uL Basophils Absolute 0.1 0.0 - 0.2 10*3/uL Immature Grans Absolute 0.0 <0.1 10*3/uL Basic metabolic panel Collection Time: 09/20/23 6:27 AM Result Value Ref Range SODIUM 137 135 - 145 mmol/L POTASSIUM 3.1 (L) 3.5 - 5.1 mmol/L CHLORIDE 99 98 - 107 mmol/L CARBON DIOXIDE 33 (H) 22 - 30 mmol/L UREA NITROGEN 28 (H) 7 - 17 mg/dL CREATININE 0.73 0.52 - 1.04 mg/dL GLUCOSE 94 70 - 100 mg/dL CALCIUM 8.5 8.4 - 10.4 mg/dL ANION GAP 5 3 - 13 mmol/L eGFR >90.0 >60.0 mL/min/1.73m*2 Troponin I Collection Time: 09/20/23 6:27 AM Result Value Ref Range TROPONIN I 0.022 <0.034 ng/mL Magnesium Collection Time: 09/20/23 6:27 AM Result Value Ref Range MAGNESIUM 2.3 1.6 - 2.3 mg/dL ECG 12 lead Collection Time: 09/20/23 7:50 AM Result Value Ref Range Heart Rate 82 bpm QRSD Interval 102 ms QT Interval 382 ms QTC Interval 446 ms P [place] 46 degrees QRS [place] -35 degrees T Wave [place] 147 degrees MI Interval 142 ms Transthoracic echocardiogram (TTE) complete with contrast, bubble, strain, and 3D PRN Collection Time: 09/20/23 3:22 PM Result Value Ref Range IVSd 1.0 (A) 0.6 - 0.9 cm LVIDd 4.4 3.9 - 5.3 cm LVIDs 3.2 cm LVOT Diameter 2.3 cm LVPWd 1.1 (A) 0.6 - 0.9 cm Global Longitudinal Strain -18.1 % EF BP 65 55 - 100 % LV Ejection Fraction A2C 60 % LV Ejection Fraction A4C 70 % LV EDV A2C 56 mL LV EDV A4C 60 mL LV EDV BP 60 56 - 104 mL LV ESV A2C 22 mL LV ESV A4C 18 mL LV ESV BP 21 19 - 49 mL LVOT Cardiac Output 6.5 liter/minute LVOT Peak Gradient 3 mmHg LVOT Mean Gradient 2 mmHg LVOT SV 78.5 ml LVOT Peak Velocity 0.9 m/s LVOT VTI 18.9 cm RV Longitudinal Dimension 5.0 cm RV Mid Dimension 2.4 cm RV Basal Dimension 2.7 cm RV Free Wall Peak S' 15 cm/s LA Diameter 2.8 cm LA Volume A/L 42 mL LA Volume 2C 36 22 - 52 mL LA Volume 4C 31 22 - 52 mL LA Volume BP 39 22 - 52 mL RA Area 4C 28.3 mL MV A Velocity 0.55 m/s MV E Wave Deceleration Time 192.4 ms MV E Velocity 0.56 m/s LV E' Lateral Velocity 12 cm/s LV E' Septal Velocity 10 cm/s TAPSE 1.9 1.7 cm TR Peak Gradient 34 mmHg TR Max Velocity 2.90 m/s IVC Diameter 1.8 cm Aortic Root 4.0 cm Fractional Shortening 2D 27 28 - 44 % LV ESV Index BP 13 mL/m2 LV EDV Index BP 38 mL/m2 LV ESV Index A4C 12 mL/m2 LV EDV Index A4C 38 mL/m2 LV ESV Index A2C 14 mL/m2 LV EDV Index A2C 36 mL/m2 LVIDd Index 2.82 cm/m2 LVIDs Index 2.05 cm/m2 LV RWT Ratio 0.50 LV Mass 2D 158.2 67 - 162 g LV Mass 2D Index 101.4 (A) 43 - 95 g/m2 MV E/A 1.02 E/E' Ratio (Averaged) 5.13 E/E' Lateral 4.67 E/E' Septal 5.60 LA Volume Index BP 25 16 - 34 ml/m2 LA Volume Index A/L 27 16 - 34 mL/m2 LVOT Stroke Volume Index 50.3 mL/m2 LVOT Area 4.2 cm2 LA Volume Index 2C 23 16 - 34 mL/m2 LA Volume Index 4C 20 16 - 34 mL/m2 LA Size Index 1.79 cm/m2 LA/AO Root Ratio 0.70 Ao Root Index 2.56 cm/m2 Aortic Sinus Valsalva 4.0 cm Aortic Sinus Valsalva Index 2.56 cm/m2 Sinotubular Junction 3.4 cm No results found for: "TSH" No components found for: "B12" No results found for: "VITD25" Reviewed: active problem list, medication list, allergies, family history, social history, notes from last encounter, notes from last several encounters, lab results, imaging Follow-up: will follow with you DB Almeida CNP 09/20/23 4:58 PM [facility] 09-20-2023 Note Formatting of this n ote might be different from the original. Care Managment Initial Assessment Date: 09/20/2023 Patient Name: Gonzalo Deluca : 1955 Patient Information Source of Information: Patient Cognition/Language: WFL - Within Functional Limits Permission given to speak with patient financial sales representative/caregiver as indicated: Yes Confirmation of Payer with patient/family: Yes Payer Name: [facility] Dual Complete [place]: No Confirmation of Primary Care Physician: Confirmed PCP Name: Deep Dunn Seen in last 2 years?: Yes Primary Caregiver: Self If assistance needed, confirmed caregiver ready, willing and able to care for patient at discharge: Yes Confirmed with: patient Living Arrangements Current Residence: House Number of Floors 2 Number of Entry Steps: 2 Bed/Bath Levels: Both second floor Facility: Facility Name: Plan to Return: Lives with: Children, Extended family members Support Systems: Children Activities of Daily Living Ambulation: Assistance (cane as needed) Bathing/Dressing: Independent Elimination/Continence/Toileting : Independent Feeding: Independent Who Assists with Activities of Daily Living: Instrumental Activities of Daily Living Prescription Coverage: Yes [facility] Used[facility] [place] Medication Management: Independent Transportation/Shopping: Transportation Mode: Car Needs Assistance with Transportation at Discharge: No Meal Preparation: Assistance Provider Meal Prep Assistance Provider Name: daughter Laundry/Cleaning: Assistance Provider Laundry/Cleaning Assistance Provider Name: demetrice Finances/Bill Paying: Independent Communication: Independent Types of Care Services/Equipment Utilized Care Services: Dialysis Type: NA Durable Medical Equipment: Cane, Walker, Wheelchair (standard or power), Shower Seat, Bedside Commode, Oxygen (Continuous or prn) Oxygen Flow Rate: 2.5-3 L continuous Patient's Goal/Discharge Plan Patient expects to be discharged to: Home with possible HHC Discharge Planning Actions: Continue to follow Patient's Choice Rights and [employer] and Collaborative Relationships Disclosed as Indicated for Post-Acute Care: Interdisciplinary Team Engagement: Social Work Referral for: Additional Information: Pt admitted to for syncopal episode and fall. Met with pt at bedside, introduced self and explained role. Pt has insurance with RX coverage, active with PCP. Pt lives with her daughter and granddaughter in a two story home. Pt gives permission to speak with daughter if needed. Pt uses a cane for mobility assistance. Independent with other ADL's. Daughter assists with cleaning and cooking. She manages her own medications. She does not drive and does have a ride home at discharge. Pt wears O2 as baseline at 2.5-3L continuously. Orthopedics following. Cardiology and Geriatrics consulted. ECHO pending. PT/OT with pending evals. Pt states she would be agreeable to HHC if it was deemed necessary. Tasked HHC to follow for possible home going needs. Discharge plan is home with possible HHC at this time. custodial services manager to follow and assist as needed. Carolina Alvarez RN [facility] 09-20-2023 Note Formatting of this n ote might be different from the original. Care Managment Initial Assessment Date: 09/20/2023 Patient Name: Gonzalo Deluca : 1955 Patient Information Source of Information: Patient Cognition/Language: WFL - Within Functional Limits Permission given to speak with patient financial sales representative/caregiver as indicated: Yes Confirmation of Payer with patient/family: Yes Payer Name: [facility] Dual Complete : No Confirmation of Primary Care Physician: Confirmed PCP Name: Deep Dunn Seen in last 2 years?: Yes Primary Caregiver: Self If assistance needed, confirmed caregiver ready, willing and able to care for patient at discharge: Yes Confirmed with: patient Living Arrangements Current Residence: House Number of Floors 2 Number of Entry Steps: 2 Bed/Bath Levels: Both second floor Facility: Facility Name: Plan to Return: Lives with: Children, Extended family members Support Systems: Children Activities of Daily Living Ambulation: Assistance (cane as needed) Bathing/Dressing: Independent Elimination/Continence/Toileting : Independent Feeding: Independent Who Assists with Activities of Daily Living: Instrumental Activities of Daily Living Prescription Coverage: Yes [facility] [place] Medication Management: Independent Transportation/Shopping: Transportation Mode: Car Needs Assistance with Transportation at Discharge: No Meal Preparation: Assistance Provider Meal Prep Assistance Provider Name: daughter Laundry/Cleaning: Assistance Provider Laundry/Cleaning Assistance Provider Name: daughter Finances/Bill Paying: Independent Communication: Independent Types of Care Services/Equipment Utilized Care Services: Dialysis Type: NA Durable Medical Equipment: Cane, Walker, Wheelchair (standard or power), Shower Seat, Bedside Commode, Oxygen (Continuous or prn) Oxygen Flow Rate: 2.5-3 L continuous Patient's Goal/Discharge Plan Patient expects to be discharged to: Home with possible C Discharge Planning Actions: Continue to follow Patient's Choice Rights and [employer] and Collaborative Relationships Disclosed as Indicated for Post-Acute Care: Interdisciplinary Team Engagement: Social Work Referral for: Additional Information: Pt admitted to for syncopal episode and fall. Met with pt at bedside, introduced self and explained role. Pt has insurance with RX coverage, active with PCP. Pt lives with her daughter and granddaughter in a two story home. Pt gives permission to speak with daughter if needed. Pt uses a cane for mobility assistance. Independent with other ADL's. Daughter assists with cleaning and cooking. She manages her own medications. She does not drive and does have a ride home at discharge. Pt wears O2 as baseline at 2.5-3L continuously. Orthopedics following. Cardiology and Geriatrics consulted. ECHO pending. PT/OT with pending evals. Pt states she would be agreeable to [facility] if it was deemed necessary. Tasked HHC to follow for possible home going needs. Discharge plan is home with possible HHC at this time. custodial services manager to follow and assist as needed. Carolina Alvarez RN [facility] 09-20-2023 Consult note Associated Order (s): IP CONSULT TO CARDIOLOGY [facility] [place] [facility] [place] Consult Note Reason for Consult/Chief Complaint: "Syncope" Established turntable engineer: None History of Present Illness: Gonzalo Deluca is a 67 y.o. female with a long hx of falls for a variety of reasons. She has injured both UE and LE. No hx of significant head injury with these falls. There is a prior hx of R sided weakness that was dx'd as probable acute lacunar infarct by Neuro 11/2019. Hx of stage IIIc SCC cervix, s/p pelvic surgery, Staged 3C1 Rx'd chemoXRT w/cisplatin Pt says she did not pass out. Says she was in granddtr's bedroom and getting ready to walk and fell over due to loss of balance onto her left side. This fall was not as bad as others. She says she remembers falling but could not stop herself. Has occ dizziness with standing, but does not recall having syncope for a few yrs. She used to pass out when she was much younger but not recently. Has severe COPD on chronic O2-NC Assessment/Plan Fall/ Balance/ Debility. Consult for "syncope". Long hx of falls. EKG ok. Tele ok. Echo ok. No sign ACS or specific cardiac decompensation. Pt denies syncope. May have dizziness from time to time. Vitals notable for variable BP as low as 85/56, high 141/79, most other measures ok. Labile BP may contribute to risk of Sxs. May be worse with ongoing wt loss. -Avoid BP meds -Push fluids, stabilize caloric intake. -Avoid meds that lower BP -Etiology for balance issues? Central or peripheral issues vs both? Mgt per primary service; consider outpt consult Neuro -Geriatric eval Unintentional weight loss. Etiology? Pt says she has no appetite. BMI 19. 115 lbs <-125 <- 132 <- 135 (01/2023) <-130 <- 134 <-146 (05/2022) <- 140 2020. -Recommend f/u with PCP -Appetite stimulants? Re-eval for other etiologies of appetite suppression Atrial shunt. Echo suggests likely PFO. Present in 25% of the population. No other signs of substantial cardiac dysfxn. Risk of this lesion of CVA. She has made it to 67 without embolic event. This is an incidental finding. -No further w/u. COPD. O2 dependent. Stable. -outpt mgt. Hx lacunar stroke. 2020. Contributor to balance difficulty? -Med mgt. Code. Social. Lives with dtr and granddtr. Fall was in granddtr bedroom. Propre access to assistive devices? Cognitive impairment? She has had a large number of falls, apparently mechanical and due to "off balance". -Geriatric consult; address tools for stability. Mgt of polypharmacy. -Code is FULL; given falls with worsening debility, severe COPD (quit smoking) outcome, CCA should be considered and discussed with pt/family. Consider Palliative Consult for GOC. Cardiology Discharge/Sign-off Recommendations Cardiology medications to continue: [] All cardiac medications as ordered currently [x] Medications; after review of meds by Geriatrics and primary team; avoid BP agents [] Please start the following medications on discharge: [] Please stop the following medications on discharge: Followup testing recommended as an outpatient: [] To be arranged by Inpatient provider/PCP [] Will be arranged by Cardiology Cardiology followup: [x] Not needed; refer back to cardiology if there are new issues of concern. [] Recommend primary service arrange f/u with patient's outpatient turntable engineer 1-2 wks. [] Recommended; unable to arrange at this time, will arrange post-discharge [] Arranged as follows: If there are any questions/concerns, please contact the covering provider. If no answer by Secure Chat, please call the cardiology office to obtain appropriate covering RESEARCH AND DEVELOPMENT DIRECTOR/physician. Medications: buPROPion XL, 150 mg, Oral, Daily calcitonin, 50 Units, IntraMUSCular, Daily clonazePAM, 0.5 mg, Oral, Nightly DULoxetine, 60 mg, Oral, Daily enoxaparin, 40 mg, SubCUTAneous, Daily gabapentin, 600 mg, Oral, Nightly mometasone-formoterol, 2 puff, Inhalation, BID montelukast, 10 mg, Oral, Nightly nicotine, 1 patch, TransDERmal, Daily QUEtiapine, 100 mg, Oral, Nightly tiotropium, 2 puff, Inhalation, Daily Infusion Medications: Physical Examination: Vitals: 09/19/23 2343 09/20/23 0315 09/20/23 0822 09/20/23 1157 BP: 135/80 (!) 85/56 110/72 109/66 BP Location: Left arm Right arm Patient Position: Lying Sitting Pulse: 86 82 85 87 Resp: 18 16 18 18 Temp: 36.6 C (97.8 F) 36.1 C (96.9 F) (!) 35.8 C (96.4 F) 36.7 C (98.1 F) TempSrc: Temporal Temporal Temporal Temporal SpO2: 91% 95% 92% 92% Weight: Height: Intake/Output Summary (Last 24 hours) at 09/20/2023 1451 Last data filed at 09/20/2023 0114 Gross per 24 hour Intake 752.08 ml Output -- Net 752.08 ml Wt Readings from Last 3 Encounters: 09/19/23 115 lb (52.2 kg) 08/07/23 125 lb (56.7 kg) 02/14/23 135 lb (61.2 kg) Physical Exam Constitutional: No acute distress. Likely undernourished. Well hydrated Psychiatric: A &O x 3. Medical insight fair NMT: Oral mucosa is pink and moist Neck: No JVD. Respiratory: Lungs are clear Cardiac exam: Rhythm: RRR ; Normal S1 and S2 Murmur: None Other: No rub; no gallop Vasc: Peripheral pulses 2+ Abdomen: Soft, +BS Extremities: No LE edema Skin: Warm to touch and well perfused Laboratory Tests: Recent Labs 09/19/23170609/20/23 0627 NA 140 137 K 2.3* 3.1* CL 93* 99 CO2 35* 33* BUN 36* 28* CREATININE 1.33* 0.73 EGFR 44.2* >90.0 Recent Labs 09/19/23 1707 09/19/23 2319 09/20/23 0627 TROPONINI 0.025 0.031 0.022 Recent Labs 09/19/23 1707 09/19/23 1754 09/20/23 0627 WBC 19.5* -- 10.9* HGB 12.7 13.4 11.0* HCT 39.6 -- 34.8* MCV 94.7 -- 95.6 PLT 339 -- 243 Lab Results Component Value Date HGBA1C 5.1 11/22/2019 No results found for: "TSH" Lab Results Component Value Date CHOL 132 11/22/2019 Lab Results Component Value Date HDL 41 11/22/2019 No results found for: "LDLCALC" Lab Results Component Value Date TRIG 116 11/22/2019 No results found for: "CHOLHDL" No results found for: LDLCHOLESTER No results for input(s): "BNP" in the last 72 hours. No results for input(s): "INR" in the last 72 hours. Results from last 7 days Lab Units 09/19/23 1707 AST U/L 35 ALT U/L 38* No results found for: "IRON", "TIBC", "FERRITIN" Radiology: CXR: personally reviewed: Hyperexpanded lung vazquez. L chest port w/tip likely in SVC. Cardiac Tests Personally Reviewed: Last EKG 09/19/23 Impression Sinus rhythm, no ischemia/infarct Nonspecific T abnormalities, lateral leads Telemetry findings: Sinus. No arrhythmia Reports reviewed: Last Echo 09/19/23 TRANSTHORACIC ECHOCARDIOGRAM (TTE) COMPLETE (CONTRAST/BUBBLE/3D PRN) 09/20/2023 3:44 PM (Final) Interpretation Summary Left Ventricle: Left ventricle size is normal. Mildly increased wall thickness. Normal left ventricular systolic function. EF by 2D Simpsons Biplane is 65%. Global longitudinal strain is normal with a value of -18.1%. Normal wall motion. Right Ventricle: Right ventricle size is normal. Interatrial Septum: No interatrial shunt visualized on color Doppler. Agitated saline study was positive without provocation. Right to left shunt was noted. Hypermobile interatrial septum. No significant valvular abnormalities. Signed by: Srini Vital MD on 09/20/2023 3:44 PM Last Cath No results found for this or any previous visit. Last Stress Test No results found for this or any previous visit. Last EP study No results found for this or any previous visit. No results found for: "EFBP", "PLVEF", "LVEFPHYS", "LVEF2D", EF Ziyad Ovalles MD DATE of SERVICE: 09/20/2023 [facility] 09-20-2023 Consult note Associated Order (s): Inpatient consult to orthopaedic surgery-- Inpatient consult to orthopaedic surgery-- Consult performed by: Betsey Gresham MD Consult ordered by: Lauren Serna MD Consult Note Date:09/20/2023 Patient Name:Gonzalo Deluca Date of :1955 Age:67 y.o. Reason for Consult: thoracic pain Chief Complaint Chief Complaint Patient presents with Fall Pt arrived by EMS for a fall at home. EMS states she fell and hit her left side and has some rib pain. Negative LOC and not on blood thinners. Pt is on oxygen at 2lpm for COPD. Pt denies chest pain and SOB. back pain History Obtained From Patient and chart History of Present Illness This patient is well-known to our practice due to prior history of multiple spinal compression fractures and prior hip fracture. She has had an episode of thoracic pain and burning from current herpes zoster. She had a near syncopal episode yesterday and fell onto her buttocks. She presented with increasing back as well as left sided chest pain from her fall. Of note she is also lost 60 pounds going down from 170 pounds to 110 pounds in the last year. She feels that her pain is worse following her fall. She denies radiation or neurologic changes. Past Medical History Past Medical History: Diagnosis Date Abnormal stress test Allergic rhinitis Arthritis Asthma Bronchitis Cancer (CMS/HCC) ([facility]) skin Cervical cancer (CMS/HCC) ([facility]) Chest pain COPD (chronic obstructive pulmonary disease) ([facility]) USE OXYGEN 3 L AT NIGHT DDD (degenerative disc disease), cervical Defect, retina, with detachment right DJD (degenerative joint disease), lumbar Emphysema lung ([facility]) Former smoker Hematuria SCHEDULED FOR THE PROCEDURE /SURGERY ON 02/11/2017 Hypokalemia Lung nodules Near syncope 09/19/2023 Osteoporosis Palpitations Pneumonia Recurrent major depression ([facility]) Sciatica Thoracic compression fracture (HCC) Vitamin D deficiency Past Surgical History Past Surgical History: Procedure Laterality Date CYSTOSCOPY 01/12/2017 OFFICE PROCEDURE CYSTOSCOPY 02/11/2017 C&P bladder biopsy EYE SURGERY detached retina 1994 HYSTERECTOMY 11/06/2019 ABDOMINAL RADICAL HYSTERECTOMY WITH BSO AND PELVIC LYMPH; DR. ZIYAD NORWOODA OTHER SURGICAL HISTORY Left 12/19/2019 Med Port POWER Regular Size OTHER SURGICAL HISTORY Left 11/07/2022 Percutaneous skeltal fixation femoral fracture TUBAL LIGATION 1992 Medications Prior to Admission medications Medication Sig Start Date End Date Taking? Authorizing Provider albuterol 108 (90 Base) MCG/ACT inhaler Inhale 2 puffs every 4 hours as needed. 08/06/21 Historical Provider, alendronate (Fosamax) 70 MG tablet Take 70 mg by mouth once a week. 12/14/21 12/14/22 Historical Provider, aspirin 81 MG EC tablet Take 81 mg by mouth. 11/25/19 Historical Provider, atorvastatin (Lipitor) 40 MG tablet Take 1 tablet by mouth Nightly. 11/24/19 Historical Provider, buPROPion XL (Wellbutrin XL) 150 MG 24 hr tablet Take 150 mg by mouth in the morning. 08/06/21 08/06/22 Historical Provider, calcitonin (Miacalcin) 200 UNIT/ML injection Inject 0.25 mL (50 Units) into the shoulder, thigh, or buttocks daily. 02/19/23 Earlene Echavarria MD calcium carbonate-cholecalciferol (Oyster Shell) 250-3.125 MG-MCG tablet Take 1 tablet by mouth. Historical Provider, clonazePAM (KlonoPIN) 0.5 MG tablet Take 1 tablet by mouth Nightly. 11/24/19 Historical Provider, cyclobenzaprine (Flexeril) 10 MG tablet Take 1 tablet (10 mg) by mouth 3 times daily as needed for muscle spasms for up to 10 days. 02/18/23 02/28/23 Earlene Echavarria MD Diclofenac Sodium (Voltaren) 1 % gel Apply 4 g topically 2 times daily. 02/18/23 Earlene Echavarria MD DULoxetine (Cymbalta) [address] capsule Take 1 capsule (60 mg) by mouth daily. Do not crush or chew. 02/19/23 02/19/24 Earlene Echavarria MD fluticasone (Flonase) 50 MCG/ACT nasal spray 2 sprays in the morning. 08/06/21 08/06/22 Historical Provider, Fluticasone Furoate-Vilanterol (Breo Ellipta) 200-25 MCG/ACT aerosol powder Inhale 1 puff daily. Historical Provider, gabapentin (Neurontin) 600 MG tablet Take 1 tablet by mouth daily. 02/08/20 Historical Provider, magnesium oxide (Mag-Ox) 400 mg tablet 400 mg daily. Historical Provider, montelukast (Singulair) 10 MG tablet Take 10 mg by mouth Nightly. Historical Provider, nicotine (Nicoderm, Step 1) 21 MG/24HR patch Place 1 patch on the skin daily. Do not start before November 09, 2022. 11/09/22 12/09/22 Raul Whipple, tiotropium (Spiriva Respimat) 2.5 MCG/ACT inhaler Inhale 2 puffs in the morning. 11/20/21 Historical Provider, Zinc 50 MG capsule Take 50 mg by mouth. Historical Provider, Allergies Pollen extract Social History reports that she quit smoking about 12 years ago. Her smoking use included cigarettes. She has never used smokeless tobacco. She reports that she does not currently use alcohol. She reports that she does not use drugs. Family History Family History Problem Relation Name Age of Onset Colon cancer Neg Hx Ovarian cancer Neg Hx Cancer Mother breast- to liver Cancer Sister breast Cancer Father lung to brain No Known Problems Brother Uterine cancer Neg Hx Review of Systems See H&P Physical Exam BP 110/72 (BP Location: Left arm, Patient Position: Lying) Pulse 85 Temp (!) 35.8 C (96.4 F) (Temporal) Resp 18 Ht 1.651 m (5' 5") Wt 52.2 kg (115 lb) SpO2 92% BMI 19.14 kg/m General: Well-developed, chronically ill-appearing, on oxygen and appears her stated age of 67. She is lying in the lateral decubitus position comfortable and in no acute distress. Neurologic: Alert and oriented x 3. Mood and affect normal. Sensory exams intact to light touch bilateral lower extremities. Vascular: No cyanosis, clubbing or edema to both lower extremities. Pulses intact. Musculoskeletal: Severe thoracic kyphosis. Diffuse pain on palpation about the thoracic spine. Distal motor functions intact. Skin: Extensive zoster lesions on the thoracic spine. Photographic documentation is present in her chart. Labs CBC: Recent Labs 09/19/23 17009/19/23 1754 09/20/23 0627 WBC 19.5* -- 10.9* RBC 4.18 -- 3.64* HGB 12.7 13.4 11.0* HCT 39.6 -- 34.8* MCV 94.7 -- 95.6 RDW 13.0 -- 12.9 PLT 339 -- 243 CHEMISTRIES: Recent Labs 09/19/23 17009/19/23 2319 09/20/23 0627 NA 140 -- 137 K 2.3* -- 3.1* CL 93* -- 99 CO2 35* -- 33* BUN 36* -- 28* CREATININE 1.33* -- 0.73 GLUCOSE 99 -- 94 MG -- 2.7* 2.3 PT/INR:No results for input(s): "PROTIME", "INR" in the last 72 hours. APTT:No results for input(s): "APTT" in the last 72 hours. LIVER PROFILE: Recent Labs 09/19/231706 AST 35 ALT 38* BILITOT 0.5 ALKPHOS 115 Imaging/Diagnostics Reviewed x-rays include: CT scan of the cervical spine shows moderate to severe degenerative disc disease throughout the cervical spine and mild to severe foraminal stenosis at multiple levels. There is a C7 sclerotic lesion in the vertebral body that could be a bone island. Further imaging is recommended. CT scan of the thoracic spine shows a severe kyphosis of 90 degrees. Multiple thoracic and lumbar compression deformities are present of age-indeterminate. Question of posterior vertebral body T1 sclerotic lesion but this could be the C7 lesion and just a variation in enumeration. Assessment 1. Exacerbation of thoracic spine pain post fall 2. Multiple thoracic and lumbar compression deformities, age-indeterminate 3. Cervical thoracic vertebral lesion 4. Significant weight loss 5. Thoracic herpes zoster Plan 1. I need to review her imaging with radiology to compare the old films to new film to determine acuity. If necessary an MRI will be ordered. I also discussed with them the benefit of bone scan versus MRI to evaluate the cervical thoracic lesion. In the meantime, PT and OT have been ordered. This can proceed pending the workup as mentioned above. Thank you for the consult we will follow with you. [facility] 09-20-2023 Plan of care note Problem: Knowledge Deficit Goal: Patient/family/caregiver demonstrates understanding of disease process, treatment plan, medications, and discharge instructions Outcome: Progressing Problem: Potential for Compromised Skin Integrity Goal: Skin Integrity is Maintained or Improved Outcome: Progressing Goal: Nutritional status is improving Outcome: Progressing Problem: Urinary Incontinence Goal: Perineal skin integrity is maintained or improved Outcome: Progressing The patient is Moderately Stable - Low risk of patient condition declining or worsening The patient's goals for the shift include rest The clinical goals for the shift include safety Over the shift, the patient did not make progress toward the following goals. Barriers to progression include . Recommendations to address these barriers include . [facility] 09-19-2023 Nurse Note Explained to patient about transfer to 261. Patient verbalized understanding. Report called to 2e rn. No further questions at present. Attempted to restart potassium. Patient c./o paon at iv site. Potassium slowed and arm raised. Patient transported with oxygen and transport monitor to room 261. [facility] 09-19-2023 Nurse Note Explained to patient about transfer to 261. Patient verbalized understanding. Report called to 2e rn. No further questions at present. Attempted to restart potassium. Patient c./o paon at iv site. Potassium slowed and arm raised. Patient transported with oxygen and transport monitor to room 261. Patient arrived from er to room 463 bed 2. Patient is alert and oriented. Realized patient required private room bed coordinator notified. Will be transferred when bed available. documented in this encounter [facility] 09-19-2023 History and physical note Images from the original note were not included. History and Physical [facility] Gonzalo Deluca : 1955 AGE 67 y.o. 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 EMS states she fell and hit her left side and has some rib pain. Negative LOC and not on blood thinners. Pt is on oxygen at 2lpm for COPD. Pt denies chest pain and SOB. ) HPI: She reports she was walking from one room to another, and the she leaned to the left side and then fell on her left buttocks She has pain her left chest, she also has shingles on her left chest She was on valtrex for 10 days and also was on steroids due to her recently diagnosed shingles She did fell lightheaded and dizzy at the times She denied any vertigo. She denied any focal numbness or weakness. She denied hitting her head or neck but states she fell down to a sitting position mainly hitting her left buttocks first. She had pain around her left chest and left single area around this time as well Over the past year she has went from 170 lbs to 110 so she has been losing weight She denies any physical problems chewing or swallowing or food. But she does report that she has appetite loss and is not eating as much She reports she is also had other falls over the year. Including skin tears on her arm but currently she has and not having any headache or neck pain or any other specific joint pain other than her left ribs and left abdomen Review of Systems: General: Skin: HEENT: Cardiovascular Fever n Rashes n Difficulty chewing n Chest Pain n Chills n Sores n Appetite Loss y Chest Pressure n Fatigue y Epistaxis n Orthopnea Sweats n Hearing loss n Palpitations n GI: Tinnitus n GERD n Vision quality n RESP: Abdominal Pain n : SOB/ADRIAN y Nausea y Hematuria n Cough y Vomiting Dysuria n Productive/Sputum yellow Hematemesis n NEURO: Urgency n Hemoptysis n Diarrhea n Headaches n Frequency n Wheezing n Constipation n Seizures Times at night urinating Heamatochezia Neuropathy n catheter present MSK: Melena Focal weakness n Hesitancy n Focal Numbness n Incontinence n Acute joint pain n Dizzy/Vertigo n Redness n Difficulty speaking n Heme/Lymph Swelling n Difficulty walking n Lymphadenopathy Myalgia n Ataxia Chronic joint pain Past Medical History: Diagnosis Date Abnormal stress test Allergic rhinitis Arthritis Asthma Bronchitis Cancer ([facility]) ([facility]) skin Cervical cancer (CMS/HCC) ([facility]) Chest pain COPD (chronic obstructive pulmonary disease) ([facility]) USE OXYGEN 3 L AT NIGHT DDD (degenerative disc disease), cervical Defect, retina, with detachment right DJD (degenerative joint disease), lumbar Emphysema lung ([facility]) Former smoker Hematuria SCHEDULED FOR THE PROCEDURE /SURGERY ON 02/11/2017 Hypokalemia Lung nodules Near syncope 09/19/2023 Osteoporosis Palpitations Pneumonia Recurrent major depression ([facility]) Sciatica Thoracic compression fracture ([facility]) Vitamin D deficiency She is on 3 liters of oxygen chronically Past Surgical History: Procedure Laterality Date CYSTOSCOPY 01/12/2017 OFFICE PROCEDURE CYSTOSCOPY 02/11/2017 C&P bladder biopsy EYE SURGERY detached retina 1994 HYSTERECTOMY 11/06/2019 ABDOMINAL RADICAL HYSTERECTOMY WITH BSO AND PELVIC LYMPH; DR. ZIYAD MENENDEZ [facility] OTHER SURGICAL HISTORY Left 12/19/2019 Med Port POWER Regular Size OTHER SURGICAL HISTORY Left 11/07/2022 Percutaneous skeltal fixation femoral fracture TUBAL LIGATION 1992 Allergies Allergen Reactions Pollen Extract Unknown Medications Prior to Admission: Current Outpatient Medications Medication Instructions albuterol 108 (90 Base) MCG/ACT inhaler 2 puffs, Inhalation, Every 4 hours PRN alendronate (FOSAMAX) 70 mg, Oral, Weekly aspirin 81 mg, Oral atorvastatin (Lipitor) 40 MG tablet 1 tablet, Oral, Nightly buPROPion XL (WELLBUTRIN XL) 150 mg, Oral, Daily calcitonin (MIACALCIN) 50 Units, IntraMUSCular, Daily calcium carbonate-cholecalciferol (Oyster Shell) 250-3.125 MG-MCG tablet 1 tablet, Oral clonazePAM (KlonoPIN) 0.5 MG tablet 1 tablet, Oral, Nightly cyclobenzaprine (FLEXERIL) 10 mg, Oral, 3 times daily PRN Diclofenac Sodium (VOLTAREN) 4 g, Topical, 2 times daily DULoxetine (CYMBALTA) 60 mg, Oral, Daily, Do not crush or chew. fluticasone (Flonase) 50 MCG/ACT nasal spray 2 sprays, Does not apply, Daily Fluticasone Furoate-Vilanterol (Breo Ellipta) 200-25 MCG/ACT aerosol powder 1 puff, Inhalation, Daily gabapentin (Neurontin) 600 MG tablet 1 tablet, Oral, Daily magnesium oxide (MAG-OX) 400 mg, Daily montelukast (SINGULAIR) 10 mg, Oral, Nightly nicotine (Nicoderm, Step 1) 21 MG/24HR patch 1 patch, TransDERmal, Daily tiotropium (Spiriva Respimat) 2.5 MCG/ACT inhaler 2 puffs, Inhalation, Daily Zinc 50 mg, Oral She does not take asa, atorvastatin Current Facility-Administered Medications: oxyCODONE (Roxicodone) immediate release tablet 5 mg, 5 mg, Oral, Once, Heydi Ceballos MD potassium chloride IVPB 10 mEq, 10 mEq, IntraVENous, q1h, Heydi Ceballos MD, Last Rate: 100 mL/hr at 09/19/231820, 10 mEq at 09/19/231820 Social History Social History Tobacco Use Smoking status: Former Current packs/day: 0.00 Types: Cigarettes Quit date: 09/20/2011 Years since quittin.0 Smokeless tobacco: Never Tobacco comments: Quit smoking: pt states she quit 4-5 years ago Substance Use Topics Alcohol use: Not Currently Comment: Approx once a year She vapes nicotine Family History Family History Problem Relation Name Age of Onset Colon cancer Neg Hx Ovarian cancer Neg Hx Cancer Mother breast- to liver Cancer Sister breast Cancer Father lung to brain No Known Problems Brother Uterine cancer Neg Hx Physical Exam Temp (24hrs), Av.8 C (98.3 F), Min:36.8 C (98.2 F), Max:36.8 C (98.3 F) Body mass index is 19.14 kg/m .BMI Classification: Normal Weight (BMI 18.5-24.9) BP 108/67 (BP Location: Left arm, Patient Position: Lying) Pulse 92 Temp 36.8 C (98.3 F) (Temporal) Resp 16 Ht 5' 5" (1.651 m) Wt 115 lb (52.2 kg) SpO2 (!) 92% BMI 19.14 kg/m Pulse Ox: SpO2 Av % Min: 92 % Max: 92 % Supplemental O2: O2 Flow Rate (L/min): 3 L/min General appearance: She is alert and answering questions well and appears to be thin HEENT: Normal cephalic, atraumatic without obvious deformity. Pupils equal, round, and reactive to light. Extra ocular muscles intact. Conjunctivae/corneas clear. Neck: Supple, with full range of motion. No jugular venous distention. Trachea midline. No lymphadenopathy. Respiratory: Normal respiratory effort. Clear to auscultation, bilaterally without Rales/Wheezes/Rhonchi. Cardiovascular: Regular rate and rhythm with normal S1/S2 without murmurs, rubs or gallops. Abdomen: Soft, non-tender, non-distended with normal bowel sounds. No rebound or guarding. Musculoskeletal: She points to pain in her lower lateral left chest. This is around her shingles is difficult to determine if the pain is in the ribs or muscles are due to her shingles. She has no cervical thoracic or lumbar spinal tenderness Skin: She is a rash present on her left lower abdomen as pictured below It appears to be resolving herpetic lesions. Some have minor surrounding erythema but does not appear to be actively infected or draining Neurologic: Neurovascularly intact without any focal sensory/motor deficits. Cranial nerves grossly intact. Labs Admission on 09/19/2023 Component Date Value Heart Rate 09/19/2023 97 QRSD Interval 09/19/2023 103 QT Interval 09/19/2023 468 QTC Interval 09/19/2023 594 P Sp[place] 09/19/2023 25 QRS [place] 09/19/2023 -48 T Wave [place] 09/19/2023 0 MI Interval 09/19/2023 140 Auto WBC 09/19/2023 19.5 (H) RBC 09/19/2023 4.18 Hemoglobin 09/19/2023 12.7 Hematocrit 09/19/2023 39.6 MCV 09/19/2023 94.7 MCH 09/19/2023 30.4 MCHC 09/19/2023 32.1 RDW 09/19/2023 13.0 Platelets 09/19/2023 339 MPV 09/19/2023 9.3 nRBC 09/19/2023 0.0 Neutrophils Relative 09/19/2023 86.1 (H) Lymphocytes Relative 09/19/2023 6.5 (L) Monocytes Relative 09/19/2023 5.1 Eosinophils Relative 09/19/2023 1.5 Basophils Relative 09/19/2023 0.2 Immature Grans % 09/19/2023 0.6 Neutrophils Absolute 09/19/2023 16.8 (H) Lymphocytes Absolute 09/19/2023 1.3 Monocytes Absolute 09/19/2023 1.0 (H) Eosinophils Absolute 09/19/2023 0.3 Basophils Absolute 09/19/2023 0.0 Immature Grans Absolute 09/19/2023 0.1 (H) TROPONIN I 09/19/2023 0.025 SODIUM 09/19/2023 140 POTASSIUM 09/19/2023 2.3 (LL) CHLORIDE 09/19/2023 93 (L) CARBON DIOXIDE 09/19/2023 35 (H) ANION GAP 09/19/2023 13 UREA NITROGEN 09/19/2023 36 (H) CREATININE 09/19/2023 1.33 (H) GLUCOSE 09/19/2023 99 CALCIUM 09/19/2023 9.0 AST (SGOT) 09/19/2023 35 ALT 09/19/2023 38 (H) ALKALINE PHOSPHATASE 09/19/2023 115 ALBUMIN 09/19/2023 3.9 BILIRUBIN, TOTAL 09/19/2023 0.5 TOTAL PROTEIN 09/19/2023 7.1 eGFR 09/19/2023 44.2 (L) Color, Urine 09/19/2023 Yellow Clarity, Urine 09/19/2023 Clear pH, Urine 09/19/2023 5.5 Leukocytes, Urine 09/19/2023 Negative Nitrite, Urine 09/19/2023 Negative Protein, Urine 09/19/2023 20 (A) Glucose, Urine 09/19/2023 Normal Bilirubin, Urine 09/19/2023 Negative Ketones, Urine 09/19/2023 Negative Urobilinogen, Urine 09/19/2023 Normal Blood, Urine 09/19/2023 Negative RBC, Urine 09/19/2023 0-2 WBC, Urine 09/19/2023 3-5 Squamous Epithelial, Uri* 09/19/2023 0-2 Non-Squamous Epithalial * 09/19/2023 0-2 (A) Bacteria, Urine 09/19/2023 Negative Mucus, Urine 09/19/2023 Few Hyaline Casts, Urine 09/19/2023 3-5 (A) SPECIFIC GRAVITY OF URIN* 09/19/2023 1.018 pH, Venous 09/19/2023 7.398 pCO2, Venous 09/19/2023 49.6 pO2, Venous 09/19/2023 50.1 HCO3, Venous 09/19/2023 29.9 O2 Sat, Venous 09/19/2023 85.8 Base Excess, Venous 09/19/2023 4.1 (H) Hgb, blood gas 09/19/2023 13.4 TCO2, Venous 09/19/2023 31.4 (H) Source Of Oxygen 09/19/2023 Nasal cannula EKG Encounter Date: 09/19/23 ECG 12 lead Result Value Heart Rate 97 QRSD Interval 103 QT Interval 468 QTC Interval 594 P Sp[place]ale 25 QRS [place] -48 T Wave [place] 0 MI Interval 140 Impression Sinus rhythm Inferior infarct, old Prolonged QT interval No significant changes compared to previous Electronically Signed On 09-19-2023 18:04:00 EDT by Jono Weathers Assessment/Plan and Medical Decision Making Fell and hit left side ? Syncope and now with left chest pain 67-year-old presents the hospital she fell while up and ambulating Has pain in her left side left ribs similar location where she recently was diagnosed with shingles. Workup in the emergency room shows that her blood pressure was normal 141/79 on admission her pulse was 99 temperature is 98.2 Laboratory values were significant for hypokalemia - 2.3 see below Her troponin was normal on admission at 0.025 EKG with sinus rhythm flattened t waves laterally and qtc 594 - see below She had an elevated white blood cell count 19.5 she recent received steroids due to her shingles diagnosis- could be from steroied Urinalysis did not show any evidence of infection. X-ray pelvis no acute disease. Xray of chest showing emphysemia. Ct of thoracic spine showing compression fractures of the mid thoracic spine showing moderate to severe compression fracture T5 T8 and also compression deformity of T7 and L1. she additionally has evidence of hyperinflated lungs and COPD her CT of her head CT of her cervical spine did not show any acute disease. There was moderate Disc space loss at C6-C7 I will check an echocardiogram as she had exertional syncope when she was up walking around. I will check further cardiac enzymes and request cardiology to see her due to chest pain, EKG with long qt and nonspecific st changes (although some of this could be due to her hypokalemia) Monitor on tele I will also request orthostatics I will request orthopedics to see her as [facility] has seen her in the past for lumbar compression fractures I will also provide her pain control Hypokalemia Potassium 2.3 on admission low likely could cause her to have muscle weakness may be the reason for her fall IV and oral replacement currently in process At home she does not appear to be on any potassium lowering medications She may need to monitor potassium in the future and supplement if needed Recent shingles She was recently placed on Valtrex she states she completed 10-day course also prednisone She currently is on 600 mg of Neurontin daily for pain which will be continued she requested some lidocaine gel which I ordered to assist with the pain She appears to have resolving rash which does not appear to be infected I reconciled the rest of her home medications including medications and inhalers for COPD also her anxiety medications Resume diet I requested PT and OT to see her Weight loss She is she has dropped about 60 pounds over the past year She has no physical problems chewing or swallowing but does have an appetite loss Likely needs to see GI as an outpatient for workup I discussed the need for admission with the emergency provider. -DVT prophylaxis: [x] Lovenox [] Heparin [] SCDs [x] Encourage ambulation [] Already on Anticoagulation [] Pharmocologic prophylaxis on hold to due risk bleed/procedure [] Low risk, ambulatory [] Both pharmacologic and mechanical contraindicated 09/19/2023 Gonzalo Deluca [id number] Any scheduled follow up appointments Extended Emergency Contact Information Primary Emergency Contact: Karishma Deluca Address: [address] [place] [address] [place] [address] [facility] Mobile Relation: Daughter Secondary Emergency Contact: Jace Deluca Mobile Relation: Son Portions of this note may be electronically transcribed. Please forward a copy of this H&P to the primary care physician. [facility] [employer] Work Phone: 09-19-2023 Note [facility] 09-19-2023 History and physical note Images from the original note were not included. History and Physical [facility] Gonzalo Deluca : 1955 AGE 67 y.o. 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 EMS states she fell and hit her left side and has some rib pain. Negative LOC and not on blood thinners. Pt is on oxygen at 2lpm for COPD. Pt denies chest pain and SOB. ) HPI: She reports she was walking from one room to another, and the she leaned to the left side and then fell on her left buttocks She has pain her left chest, she also has shingles on her left chest She was on valtrex for 10 days and also was on steroids due to her recently diagnosed shingles She did fell lightheaded and dizzy at the times She denied any vertigo. She denied any focal numbness or weakness. She denied hitting her head or neck but states she fell down to a sitting position mainly hitting her left buttocks first. She had pain around her left chest and left single area around this time as well Over the past year she has went from 170 lbs to 110 so she has been losing weight She denies any physical problems chewing or swallowing or food. But she does report that she has appetite loss and is not eating as much She reports she is also had other falls over the year. Including skin tears on her arm but currently she has and not having any headache or neck pain or any other specific joint pain other than her left ribs and left abdomen Review of Systems: General: Skin: HEENT: Cardiovascular Fever n Rashes n Difficulty chewing n Chest Pain n Chills n Sores n Appetite Loss y Chest Pressure n Fatigue y Epistaxis n Orthopnea Sweats n Hearing loss n Palpitations n GI: Tinnitus n GERD n Vision quality n RESP: Abdominal Pain n : SOB/ADRIAN y Nausea y Hematuria n Cough y Vomiting Dysuria n Productive/Sputum yellow Hematemesis n NEURO: Urgency n Hemoptysis n Diarrhea n Headaches n Frequency n Wheezing n Constipation n Seizures Times at night urinating Heamatochezia Neuropathy n catheter present MSK: Melena Focal weakness n Hesitancy n Focal Numbness n Incontinence n Acute joint pain n Dizzy/Vertigo n Redness n Difficulty speaking n Heme/Lymph Swelling n Difficulty walking n Lymphadenopathy Myalgia n Ataxia Chronic joint pain Past Medical History: Diagnosis Date Abnormal stress test Allergic rhinitis Arthritis Asthma Bronchitis Cancer ([facility]) ([facility]) skin Cervical cancer ([facility]) ([facility]) Chest pain COPD (chronic obstructive pulmonary disease) ([facility]) USE OXYGEN 3 L AT NIGHT DDD (degenerative disc disease), cervical Defect, retina, with detachment right DJD (degenerative joint disease), lumbar Emphysema lung ([facility]) Former smoker Hematuria SCHEDULED FOR THE PROCEDURE /SURGERY ON 02/11/2017 Hypokalemia Lung nodules Near syncope 09/19/2023 Osteoporosis Palpitations Pneumonia Recurrent major depression ([facility]) Sciatica Thoracic compression fracture ([facility]) Vitamin D deficiency She is on 3 liters of oxygen chronically Past Surgical History: Procedure Laterality Date CYSTOSCOPY 01/12/2017 OFFICE PROCEDURE CYSTOSCOPY 02/11/2017 C&P bladder biopsy EYE SURGERY detached retina 1994 HYSTERECTOMY 11/06/2019 ABDOMINAL RADICAL HYSTERECTOMY WITH BSO AND PELVIC LYMPH; DR. ZIYAD MENENDEZ [facility] OTHER SURGICAL HISTORY Left 12/19/2019 Med Port POWER Regular Size OTHER SURGICAL HISTORY Left 11/07/2022 Percutaneous skeltal fixation femoral fracture TUBAL LIGATION 1992 Allergies Allergen Reactions Pollen Extract Unknown Medications Prior to Admission: Current Outpatient Medications Medication Instructions albuterol 108 (90 Base) MCG/ACT inhaler 2 puffs, Inhalation, Every 4 hours PRN alendronate (FOSAMAX) 70 mg, Oral, Weekly aspirin 81 mg, Oral atorvastatin (Lipitor) 40 MG tablet 1 tablet, Oral, Nightly buPROPion XL (WELLBUTRIN XL) 150 mg, Oral, Daily calcitonin (MIACALCIN) 50 Units, IntraMUSCular, Daily calcium carbonate-cholecalciferol (Oyster Shell) 250-3.125 MG-MCG tablet 1 tablet, Oral clonazePAM (KlonoPIN) 0.5 MG tablet 1 tablet, Oral, Nightly cyclobenzaprine (FLEXERIL) 10 mg, Oral, 3 times daily PRN Diclofenac Sodium (VOLTAREN) 4 g, Topical, 2 times daily DULoxetine (CYMBALTA) 60 mg, Oral, Daily, Do not crush or chew. fluticasone (Flonase) 50 MCG/ACT nasal spray 2 sprays, Does not apply, Daily Fluticasone Furoate-Vilanterol (Breo Ellipta) 200-25 MCG/ACT aerosol powder 1 puff, Inhalation, Daily gabapentin (Neurontin) 600 MG tablet 1 tablet, Oral, Daily magnesium oxide (MAG-OX) 400 mg, Daily montelukast (SINGULAIR) 10 mg, Oral, Nightly nicotine (Nicoderm, Step 1) 21 MG/24HR patch 1 patch, TransDERmal, Daily tiotropium (Spiriva Respimat) 2.5 MCG/ACT inhaler 2 puffs, Inhalation, Daily Zinc 50 mg, Oral She does not take asa, atorvastatin Current Facility-Administered Medications: oxyCODONE (Roxicodone) immediate release tablet 5 mg, 5 mg, Oral, Once, Heydi Ceballos MD potassium chloride IVPB 10 mEq, 10 mEq, IntraVENous, q1h, Heydi Ceballos MD, Last Rate: 100 mL/hr at 09/19/231820, 10 mEq at 09/19/231820 Social History Social History Tobacco Use Smoking status: Former Current packs/day: 0.00 Types: Cigarettes Quit date: 09/20/2011 Years since quittin.0 Smokeless tobacco: Never Tobacco comments: Quit smoking: pt states she quit 4-5 years ago Substance Use Topics Alcohol use: Not Currently Comment: Approx once a year She vapes nicotine Family History Family History Problem Relation Name Age of Onset Colon cancer Neg Hx Ovarian cancer Neg Hx Cancer Mother breast- to liver Cancer Sister breast Cancer Father lung to brain No Known Problems Brother Uterine cancer Neg Hx Physical Exam Temp (24hrs), Av.8 C (98.3 F), Min:36.8 C (98.2 F), Max:36.8 C (98.3 F) Body mass index is 19.14 kg/m .BMI Classification: Normal Weight (BMI 18.5-24.9) BP 108/67 (BP Location: Left arm, Patient Position: Lying) Pulse 92 Temp 36.8 C (98.3 F) (Temporal) Resp 16 Ht 5' 5" (1.651 m) Wt 115 lb (52.2 kg) SpO2 (!) 92% BMI 19.14 kg/m Pulse Ox: SpO2 Av % Min: 92 % Max: 92 % Supplemental O2: O2 Flow Rate (L/min): 3 L/min General appearance: She is alert and answering questions well and appears to be thin HEENT: Normal cephalic, atraumatic without obvious deformity. Pupils equal, round, and reactive to light. Extra ocular muscles intact. Conjunctivae/corneas clear. Neck: Supple, with full range of motion. No jugular venous distention. Trachea midline. No lymphadenopathy. Respiratory: Normal respiratory effort. Clear to auscultation, bilaterally without Rales/Wheezes/Rhonchi. Cardiovascular: Regular rate and rhythm with normal S1/S2 without murmurs, rubs or gallops. Abdomen: Soft, non-tender, non-distended with normal bowel sounds. No rebound or guarding. Musculoskeletal: She points to pain in her lower lateral left chest. This is around her shingles is difficult to determine if the pain is in the ribs or muscles are due to her shingles. She has no cervical thoracic or lumbar spinal tenderness Skin: She is a rash present on her left lower abdomen as pictured below It appears to be resolving herpetic lesions. Some have minor surrounding erythema but does not appear to be actively infected or draining Neurologic: Neurovascularly intact without any focal sensory/motor deficits. Cranial nerves grossly intact. Labs Admission on 09/19/2023 Component Date Value Heart Rate 09/19/2023 97 QRSD Interval 09/19/2023 103 QT Interval 09/19/2023 468 QTC Interval 09/19/2023 594 P [place] 09/19/2023 25 QRS [place] 09/19/2023 -48 T Wave [place] 09/19/2023 0 MI Interval 09/19/2023 140 Auto WBC 09/19/2023 19.5 (H) RBC 09/19/2023 4.18 Hemoglobin 09/19/2023 12.7 Hematocrit 09/19/2023 39.6 MCV 09/19/2023 94.7 MCH 09/19/2023 30.4 MCHC 09/19/2023 32.1 RDW 09/19/2023 13.0 Platelets 09/19/2023 339 MPV 09/19/2023 9.3 nRBC 09/19/2023 0.0 Neutrophils Relative 09/19/2023 86.1 (H) Lymphocytes Relative 09/19/2023 6.5 (L) Monocytes Relative 09/19/2023 5.1 Eosinophils Relative 09/19/2023 1.5 Basophils Relative 09/19/2023 0.2 Immature Grans % 09/19/2023 0.6 Neutrophils Absolute 09/19/2023 16.8 (H) Lymphocytes Absolute 09/19/2023 1.3 Monocytes Absolute 09/19/2023 1.0 (H) Eosinophils Absolute 09/19/2023 0.3 Basophils Absolute 09/19/2023 0.0 Immature Grans Absolute 09/19/2023 0.1 (H) TROPONIN I 09/19/2023 0.025 SODIUM 09/19/2023 140 POTASSIUM 09/19/2023 2.3 (LL) CHLORIDE 09/19/2023 93 (L) CARBON DIOXIDE 09/19/2023 35 (H) ANION GAP 09/19/2023 13 UREA NITROGEN 09/19/2023 36 (H) CREATININE 09/19/2023 1.33 (H) GLUCOSE 09/19/2023 99 CALCIUM 09/19/2023 9.0 AST (SGOT) 09/19/2023 35 ALT 09/19/2023 38 (H) ALKALINE PHOSPHATASE 09/19/2023 115 ALBUMIN 09/19/2023 3.9 BILIRUBIN, TOTAL 09/19/2023 0.5 TOTAL PROTEIN 09/19/2023 7.1 eGFR 09/19/2023 44.2 (L) Color, Urine 09/19/2023 Yellow Clarity, Urine 09/19/2023 Clear pH, Urine 09/19/2023 5.5 Leukocytes, Urine 09/19/2023 Negative Nitrite, Urine 09/19/2023 Negative Protein, Urine 09/19/2023 20 (A) Glucose, Urine 09/19/2023 Normal Bilirubin, Urine 09/19/2023 Negative Ketones, Urine 09/19/2023 Negative Urobilinogen, Urine 09/19/2023 Normal Blood, Urine 09/19/2023 Negative RBC, Urine 09/19/2023 0-2 WBC, Urine 09/19/2023 3-5 Squamous Epithelial, Uri* 09/19/2023 0-2 Non-Squamous Epithalial * 09/19/2023 0-2 (A) Bacteria, Urine 09/19/2023 Negative Mucus, Urine 09/19/2023 Few Hyaline Casts, Urine 09/19/2023 3-5 (A) SPECIFIC GRAVITY OF URIN* 09/19/2023 1.018 pH, Venous 09/19/2023 7.398 pCO2, Venous 09/19/2023 49.6 pO2, Venous 09/19/2023 50.1 HCO3, Venous 09/19/2023 29.9 O2 Sat, Venous 09/19/2023 85.8 Base Excess, Venous 09/19/2023 4.1 (H) Hgb, blood gas 09/19/2023 13.4 TCO2, Venous 09/19/2023 31.4 (H) Source Of Oxygen 09/19/2023 Nasal cannula EKG Encounter Date: 09/19/23 ECG 12 lead Result Value Heart Rate 97 QRSD Interval 103 QT Interval 468 QTC Interval 594 P [place] 25 QRS [place] -48 T Wave [place] 0 MI Interval 140 Impression Sinus rhythm Inferior infarct, old Prolonged QT interval No significant changes compared to previous Electronically Signed On 09-19-2023 18:04:00 EDT by Jono Weathers Assessment/Plan and Medical Decision Making Fell and hit left side ? Syncope and now with left chest pain 67-year-old presents the hospital she fell while up and ambulating Has pain in her left side left ribs similar location where she recently was diagnosed with shingles. Workup in the emergency room shows that her blood pressure was normal 141/79 on admission her pulse was 99 temperature is 98.2 Laboratory values were significant for hypokalemia - 2.3 see below Her troponin was normal on admission at 0.025 EKG with sinus rhythm flattened t waves laterally and qtc 594 - see below She had an elevated white blood cell count 19.5 she recent received steroids due to her shingles diagnosis- could be from steroied Urinalysis did not show any evidence of infection. X-ray pelvis no acute disease. Xray of chest showing emphysemia. Ct of thoracic spine showing compression fractures of the mid thoracic spine showing moderate to severe compression fracture T5 T8 and also compression deformity of T7 and L1. she additionally has evidence of hyperinflated lungs and COPD her CT of her head CT of her cervical spine did not show any acute disease. There was moderate Disc space loss at C6-C7 I will check an echocardiogram as she had exertional syncope when she was up walking around. I will check further cardiac enzymes and request cardiology to see her due to chest pain, EKG with long qt and nonspecific st changes (although some of this could be due to her hypokalemia) Monitor on tele I will also request orthostatics I will request orthopedics to see her as [facility] has seen her in the past for lumbar compression fractures I will also provide her pain control Hypokalemia Potassium 2.3 on admission low likely could cause her to have muscle weakness may be the reason for her fall IV and oral replacement currently in process At home she does not appear to be on any potassium lowering medications She may need to monitor potassium in the future and supplement if needed Recent shingles She was recently placed on Valtrex she states she completed 10-day course also prednisone She currently is on 600 mg of Neurontin daily for pain which will be continued she requested some lidocaine gel which I ordered to assist with the pain She appears to have resolving rash which does not appear to be infected I reconciled the rest of her home medications including medications and inhalers for COPD also her anxiety medications Resume diet I requested PT and OT to see her Weight loss She is she has dropped about 60 pounds over the past year She has no physical problems chewing or swallowing but does have an appetite loss Likely needs to see GI as an outpatient for workup I discussed the need for admission with the emergency provider. -DVT prophylaxis: [x] Lovenox [] Heparin [] SCDs [x] Encourage ambulation [] Already on Anticoagulation [] Pharmocologic prophylaxis on hold to due risk bleed/procedure [] Low risk, ambulatory [] Both pharmacologic and mechanical contraindicated 09/19/2023 Gonzalo Deluca [id number] Any scheduled follow up appointments Extended Emergency Contact Information Primary Emergency Contact: Karishma Deluca Address: [address] [place] [address] [place] [address] [facility] Mobile Relation: Daughter Secondary Emergency Contact: Jace Deluca Mobile Relation: Son Portions of this note may be electronically transcribed. Please forward a copy of this H&P to the primary care physician. documented in this encounter [facility] 09-19-2023 Nurse Note Patient arrived from er to room 463 bed 2. Patient is alert and oriented. Realized patient required private room bed coordinator notified. Will be transferred when bed available. [facility] 09-19-2023 Emergency department Note Floor advised of pt coming to floor. VERA Brown 09/19/231945 [facility] 09-19-2023 Emergency department Note Floor advised of pt coming to floor. VERA Brown 09/19/231945 Pt provided with a toni laurie and chicken salad sandwich. VERA Brown 09/19/231939 Pt on 2lpm of oxygen. Pt 89% on room air. Oxygen increased to 3lpm. VERA Brown 09/19/231731 Pt to radiology. VERA Brown 09/19/23 1711 EMERGENCY DEPARTMENT ENCOUNTER Pt Name: Gonzalo Deluca Birthdate 1955 Date of evaluation: 09/19/2023 ED Provider: Heydi Ceballos MD CHIEF COMPLAINT Chief Complaint Patient presents with Fall Pt arrived by EMS for a fall at home. EMS states she fell and hit her left side and has some rib pain. Negative LOC and not on blood thinners. Pt is on oxygen at 2lpm for COPD. Pt denies chest pain and SOB. HISTORY OF PRESENT ILLNESS (Location/Symptom, Timing/Onset, Context/Setting, Quality, Duration, Modifying Factors, Severity) Note limiting factors. I wore appropriate PPE for the entirety of this encounter. HPI Gonzalo Deluca is a 67 y.o. female who presents to the emergency department for fall status post near syncope. Patient arrives via EMS. Patient states that she guillermina from a chair and was walking over to another room when she started feeling lightheaded which caused her to fall. Patient states that she did not lose consciousness and does not take any blood thinners. Patient does state that she hit the back of her head. Denies nausea/vomiting, confusion, focal weakness, paresthesias. Patient is currently dealing with shingles at the moment over her left lower chest and does have significant pain due to this. Patient also has a history of COPD and requires 2 to 3 L nasal cannula at baseline. Here in the ED, patient denies recent illness, fever/chills, change in appetite, chest pain, shortness of breath, abdominal pain, dysuria, diarrhea. Nursing Notes were reviewed. Limitations to history: Outside historians: REVIEW OF SYSTEMS Review of Systems As noted in HPI. PAST MEDICAL HISTORY Past Medical History: Diagnosis Date Abnormal stress test Allergic rhinitis Arthritis Asthma Bronchitis Cancer (CMS/HCC) ([facility]) skin Cervical cancer (CMS/HCC) ([facility]) Chest pain COPD (chronic obstructive pulmonary disease) ([facility]) USE OXYGEN 3 L AT NIGHT DDD (degenerative disc disease), cervical Defect, retina, with detachment right DJD (degenerative joint disease), lumbar Emphysema lung ([facility]) Former smoker Hematuria SCHEDULED FOR THE PROCEDURE /SURGERY ON 02/11/2017 Hypokalemia Lung nodules Near syncope 09/19/2023 Osteoporosis Palpitations Pneumonia Recurrent major depression (HCC) Sciatica Thoracic compression fracture ([facility]) Vitamin D deficiency SURGICAL HISTORY Past Surgical History: Procedure Laterality Date CYSTOSCOPY 01/12/2017 OFFICE PROCEDURE CYSTOSCOPY 02/11/2017 C&P bladder biopsy EYE SURGERY detached retina 1994 HYSTERECTOMY 11/06/2019 ABDOMINAL RADICAL HYSTERECTOMY WITH BSO AND PELVIC LYMPH; DR. ZIYAD FISH OTHER SURGICAL HISTORY Left 12/19/2019 Med Port POWER Regular Size OTHER SURGICAL HISTORY Left 11/07/2022 Percutaneous skeltal fixation femoral fracture TUBAL LIGATION 1992 CURRENT MEDICATIONS Previous Medications ALBUTEROL 108 (90 BASE) MCG/ACT INHALER Inhale 2 puffs every 4 hours as needed. ALENDRONATE (FOSAMAX) 70 MG TABLET Take 70 mg by mouth once a week. ASPIRIN 81 MG EC TABLET Take 81 mg by mouth. ATORVASTATIN (LIPITOR) 40 MG TABLET Take 1 tablet by mouth Nightly. BUPROPION XL (WELLBUTRIN XL) 150 MG 24 HR TABLET Take 150 mg by mouth in the morning. CALCITONIN (MIACALCIN) 200 UNIT/ML INJECTION Inject 0.25 mL (50 Units) into the shoulder, thigh, or buttocks daily. CALCIUM CARBONATE-CHOLECALCIFEROL (OYSTER SHELL) 250-3.125 MG-MCG TABLET Take 1 tablet by mouth. CLONAZEPAM (KLONOPIN) 0.5 MG TABLET Take 1 tablet by mouth Nightly. CYCLOBENZAPRINE (FLEXERIL) 10 MG TABLET Take 1 tablet (10 mg) by mouth 3 times daily as needed for muscle spasms for up to 10 days. DICLOFENAC SODIUM (VOLTAREN) 1 % GEL Apply 4 g topically 2 times daily. DULOXETINE (CYMBALTA) [address] CAPSULE Take 1 capsule (60 mg) by mouth daily. Do not crush or chew. FLUTICASONE (FLONASE) 50 MCG/ACT NASAL SPRAY 2 sprays in the morning. FLUTICASONE FUROATE-VILANTEROL (BREO ELLIPTA) 200-25 MCG/ACT AEROSOL POWDER Inhale 1 puff daily. GABAPENTIN (NEURONTIN) 600 MG TABLET Take 1 tablet by mouth daily. MAGNESIUM OXIDE (MAG-OX) 400 MG TABLET 400 mg daily. MONTELUKAST (SINGULAIR) 10 MG TABLET Take 10 mg by mouth Nightly. NICOTINE (NICODERM, STEP 1) 21 MG/24HR PATCH Place 1 patch on the skin daily. Do not start before November 09, 2022. TIOTROPIUM (SPIRIVA RESPIMAT) 2.5 MCG/ACT INHALER Inhale 2 puffs in the morning. ZINC 50 MG CAPSULE Take 50 mg by mouth. ALLERGIES Allergies Allergen Reactions Pollen Extract Unknown FAMILY HISTORY Family History Problem Relation Name Age of Onset Colon cancer Neg Hx Ovarian cancer Neg Hx Cancer Mother breast- to liver Cancer Sister breast Cancer Father lung to brain No Known Problems Brother Uterine cancer Neg Hx SOCIAL HISTORY Social History Socioeconomic History Marital status: Tobacco Use Smoking status: Former Current packs/day: 0.00 Types: Cigarettes Quit date: 09/20/2011 Years since quittin.0 Smokeless tobacco: Never Tobacco comments: Quit smoking: pt states she quit 4-5 years ago Vaping Use Vaping status: Every Day Substance and Sexual Activity Alcohol use: Not Currently Comment: Approx once a year Drug use: No Social Determinants of Health Financial Resource Strain: Low Risk (05/20/2023) Received from [facility] Overall Financial Resource Strain (CARDIA) Difficulty of Paying Living Expenses: Not very hard Food Insecurity: No Food Insecurity (05/20/2023) Received from [facility] Hunger Vital Sign Worried About Running Out of Food in the Last Year: Never true Ran Out of Food in the Last Year: Never true Transportation Needs: No Transportation Needs (05/20/2023) Received from [facility] PRAPARE - Transportation Lack of Transportation (Medical): No Lack of Transportation (Non-Medical): No Physical Activity: Inactive (05/20/2023) Received from [facility] Exercise Vital Sign Days of Exercise per Week: 0 days Minutes of Exercise per Session: 0 min Stress: Stress Concern Present (05/20/2023) Received from [facility] of Occupational Health - Occupational Stress Questionnaire Feeling of Stress : To some extent Social Connections: Unknown (05/20/2023) Received from [facility] Social Connection and Isolation Panel [NHANES] Frequency of Communication with Friends and Family: Twice a week Frequency of Social Gatherings with Friends and Family: Patient declined Attends Judaism Services: Never Active Member of Clubs or Organizations: No Attends Club or Organization Meetings: Patient declined Marital Status: Intimate Partner Violence: Not At Risk (05/21/2022) Humiliation, Afraid, Rape, and Kick questionnaire Fear of Current or Ex-Partner: No Emotionally Abused: No Physically Abused: No Sexually Abused: No Housing Stability: Low Risk (05/20/2023) Received from [facility] Housing Stability Vital Sign Unable to Pay for Housing in the Last Year: No Number of Places Lived in the Last Year: 1 In the last 12 months, was there a time when you did not have a steady place to sleep or slept in a senior living (including now)?: No SCREENINGS PHYSICAL EXAM ED Triage Vitals Temp Pulse Resp BP -- -- -- -- SpO2 Temp src Heart Rate Source Patient Position -- -- -- -- BP Location FiO2 (%) -- -- Physical Exam Vitals and nursing note reviewed. Constitutional: General: She is not in acute distress. Appearance: She is not ill-appearing. HENT: Head: Normocephalic and atraumatic. Comments: No obvious bony deformities or step offs Eyes: Extraocular Movements: Extraocular movements intact. Pupils: Pupils are equal, round, and reactive to light. Cardiovascular: Rate and Rhythm: Normal rate and regular rhythm. Pulses: Normal pulses. Pulmonary: Effort: Pulmonary effort is normal. No respiratory distress. Breath sounds: Normal breath sounds. Comments: TTP around area of shingles rash. No bony deformities or crepitus Chest: Chest wall: Tenderness present. Abdominal: General: There is no distension. Palpations: Abdomen is soft. Musculoskeletal: General: No tenderness or deformity. Normal range of motion. Cervical back: Normal range of motion and neck supple. No tenderness. Neurological: Mental Status: She is alert and oriented to person, place, and time. DIAGNOSTIC RESULTS EKG: If performed, reviewed by me with my interpretation noted below in [facility]. Refer to [facility] for official interpretation. RADIOLOGY: Refer to [facility] below for my independent interpretation. Interpretation per the Radiologist below, if available at the time of this note: CT thoracic spine wo IV contrast Final Result Impression: No acute osseous abnormality. Nonspecific sclerotic lesion within the C7 vertebral body may represent a bone island among others. Correlate with patient risk factors and consider follow-up whole-body bone scan as clinically directed. There is a left-sided catheter from a subclavian approach with catheter tip in the SVC. Examination: CT thoracic spine Indication: syncope and fall Technique: Axial CT images of the thoracic spine were obtained at 1 mm intervals Sagittal and coronal reconstructions were reviewed as well. Dose reduction was employed with automatic exposure control. Findings: Counting will be based on the small sclerotic lesion anteriorly within the C7 Recent compression fractures are present in the midthoracic region, most pronounced at T5 and T8. Moderate compression deformity of T7. Moderate compression deformity of L1. Fractures appear remote. There is thoracic kyphosis and osteopenia. There is peribronchial thickening, bilaterally. Fairly extensive emphysematous changes are present. Mild infiltrate, scar or atelectasis of the right lung base present. Mild atelectasis or scar of the left lung base noted. No sizable pulmonary nodule. Impression: Moderate to severe compression fracture of T5 and T8. Moderate compression deformity of T7. Moderate L1 compression fracture. Osteopenia. Stents of emphysematous changes with peribronchial thickening and scarring. Probable mild right basilar airspace disease. Bronchiectasis is also present. Report Dictated on Electronically Signed By: Clark Duffy MD Electronically Signed Date/Time: 09/19/2023 6:[address] cervical spine wo IV contrast Final Result Impression: No acute osseous abnormality. Nonspecific sclerotic lesion within the C7 vertebral body may represent a bone island among others. Correlate with patient risk factors and consider follow-up whole-body bone scan as clinically directed. There is a left-sided catheter from a subclavian approach with catheter tip in the SVC. Examination: CT thoracic spine Indication: syncope and fall Technique: Axial CT images of the thoracic spine were obtained at 1 mm intervals Sagittal and coronal reconstructions were reviewed as well. Dose reduction was employed with automatic exposure control. Findings: Counting will be based on the small sclerotic lesion anteriorly within the C7 Recent compression fractures are present in the midthoracic region, most pronounced at T5 and T8. Moderate compression deformity of T7. Moderate compression deformity of L1. Fractures appear remote. There is thoracic kyphosis and osteopenia. There is peribronchial thickening, bilaterally. Fairly extensive emphysematous changes are present. Mild infiltrate, scar or atelectasis of the right lung base present. Mild atelectasis or scar of the left lung base noted. No sizable pulmonary nodule. Impression: Moderate to severe compression fracture of T5 and T8. Moderate compression deformity of T7. Moderate L1 compression fracture. Osteopenia. Stents of emphysematous changes with peribronchial thickening and scarring. Probable mild right basilar airspace disease. Bronchiectasis is also present. Report Dictated on Electronically Signed By: Clark Duffy MD Electronically Signed Date/Time: 09/19/2023 6:[address] head wo IV contrast Final Result No intracranial traumatic injuries. Report Dictated on Electronically Signed By: Brando Tejada MD Electronically Signed Date/Time: 09/19/2023 5:55 PM EDT XR chest 2 views Final Result Radiographic features suggestive of COPD. Compression fractures in the midthoracic spine with thoracic kyphosis. EXAMINATION: AP pelvis one view INDICATION: sob, hx copd on 2-3L NC FINDINGS: No acute fracture or dislocation is demonstrated. There are three cannulated screws fixating a subcapital left femoral neck fracture. Mild joint space loss laterally within the left hip. Moderate degenerative disc disease of the lower lumbar spine noted. The soft tissues are grossly unremarkable. IMPRESSION: No acute osseous abnormality. Report Dictated on Electronically Signed By: Clark Duffy MD Electronically Signed Date/Time: 09/19/2023 5:26 PM EDT XR pelvis 1 or 2 views Final Result Radiographic features suggestive of COPD. Compression fractures in the midthoracic spine with thoracic kyphosis. EXAMINATION: AP pelvis one view INDICATION: sob, hx copd on 2-3L NC FINDINGS: No acute fracture or dislocation is demonstrated. There are three cannulated screws fixating a subcapital left femoral neck fracture. Mild joint space loss laterally within the left hip. Moderate degenerative disc disease of the lower lumbar spine noted. The soft tissues are grossly unremarkable. IMPRESSION: No acute osseous abnormality. Report Dictated on Electronically Signed By: Clark Duffy MD Electronically Signed Date/Time: 09/19/2023 5:26 PM EDT LABS: Labs Reviewed CBC WITH AUTO DIFFERENTIAL - Abnormal Result Value Auto WBC 19.5 (*) RBC 4.18 Hemoglobin 12.7 Hematocrit 39.6 MCV 94.7 MCH 30.4 MCHC 32.1 RDW 13.0 Platelets 339 MPV 9.3 nRBC 0.0 Neutrophils Relative 86.1 (*) Lymphocytes Relative 6.5 (*) Monocytes Relative 5.1 Eosinophils Relative 1.5 Basophils Relative 0.2 Immature Grans % 0.6 Neutrophils Absolute 16.8 (*) Lymphocytes Absolute 1.3 Monocytes Absolute 1.0 (*) Eosinophils Absolute 0.3 Basophils Absolute 0.0 Immature Grans Absolute 0.1 (*) COMPREHENSIVE METABOLIC PANEL - Abnormal SODIUM 140 POTASSIUM 2.3 (*) CHLORIDE 93 (*) CARBON DIOXIDE 35 (*) ANION GAP 13 UREA NITROGEN 36 (*) CREATININE 1.33 (*) GLUCOSE 99 CALCIUM 9.0 AST (SGOT) 35 ALT 38 (*) ALKALINE PHOSPHATASE 115 ALBUMIN 3.9 BILIRUBIN, TOTAL 0.5 TOTAL PROTEIN 7.1 eGFR 44.2 (*) BLOOD GAS, VENOUS - Abnormal pH, Venous 7.398 pCO2, Venous 49.6 pO2, Venous 50.1 HCO3, Venous 29.9 O2 Sat, Venous 85.8 Base Excess, Venous 4.1 (*) Hgb, blood gas 13.4 TCO2, Venous 31.4 (*) Source Of Oxygen Nasal cannula Narrative: Assessment of oxygenation is best done with an arterial blood gas determination. Reference ranges for pO2, bicarbonate, and base excess are for mixed venous blood. Specimens drawn from a peripheral vein will often have higher values. TROPONIN, WITH SERIAL REFLEX - Normal TROPONIN I 0.025 Narrative: Patients with high levels of Biotin oral intake (ie >5 mg/day) may have falsely decreased Troponin levels. COMPLETE URINALYSIS WITH REFLEX TO CULTURE Narrative: The following orders were created for panel order Urinalysis complete with reflex to Culture. Procedure Abnormality Status --------- ------ Complete Urinalysis[[id number]] Please view results for these tests on the individual orders. COMPLETE URINALYSIS TROPONIN I TROPONIN I All other labs were within normal range or not returned at time of this dictation. EMERGENCY DEPARTMENT COURSE and DIFFERENTIAL DIAGNOSIS/MDM: Vitals: Vitals: 09/19/23 1639 BP: (!) 141/79 BP Location: Left arm Patient Position: Sitting Pulse: 99 Resp: 18 Temp: 36.8 C (98.2 F) TempSrc: Oral SpO2: (!) 92% Weight: 52.2 kg (115 lb) Height: 1.651 m (5' 5") Clinical Impression: The patient presented with chief complaint as above. Patient's vital signs were reviewed by me. Pertinent history and physical exam as above. Nursing notes were reviewed by me. The differential diagnosis associated with this patient's presentation includes acute hypoxic event, ACS, COPD exacerbation, pneumonia, arrhythmia, electrolyte abnormalities, metabolic derangements, UTI, other infectious process, ICH, fracture, and others or a combination of the above. Our workup consisted of ordering/reviewing EKG, CT head and C-spine, chest x-ray and pelvic x-ray, and blood work with urine studies. Reassessment: EKG shows sinus rhythm with prolonged QT interval, consistent with prior EKG though prolonged QTc interval is new. CMP does have panic lab with hypokalemia of 2.3 as well as what looks to be prerenal acidemia and elevated bicarb. VBG will be obtained. Patient given IV fluids, potassium and magnesium repletion for hypokalemia and prolonged QT. CBC does reveal leukocytosis of 19.5 which is nearly doubled from patient's baseline 1 month ago. No anemia. Chest x-ray reveals changes consistent with COPD as well as compression fractures in the mid thoracic spine with thoracic kyphosis. CT thoracic spine was added given patient did have some pain to this area, which revealed multiple recent midthoracic compression fractures and a likely remote lumbar compression fracture. X-ray of the pelvis unremarkable. Discussed patient with hospitalist, who agreed to admit patient for further management including further monitoring and repletion of electrolyte abnormalities and follow-up of compression fractures. Patient admitted in stable condition. Diagnoses as of 09/19/23 190 Near syncope Closed head injury, initial encounter Fall, initial encounter Compression fracture of T5 vertebra, initial encounter ([facility]) Compression fracture of T7 vertebra, initial encounter ([facility]) Compression fracture of T8 vertebra, initial encounter ([facility]) Compression fracture of L1 vertebra, initial encounter ([facility]) External records reviewed: Chronic conditions impacting care: Social determinants of health affecting care: Diagnostics independently interpreted by me: As above ED Medications managed: Medications potassium chloride IVPB 10 mEq (10 mEq IntraVENous New Bag 09/19/23 182) magnesium sulfate IVPB premix 2,000 mg (2,000 mg IntraVENous New Bag 09/19/23 182) sodium chloride 0.9 % bolus 500 mL (500 mL IntraVENous New Bag 09/19/23 1740) potassium chloride CR (Klor-Con M10) ER tablet 40 mEq (40 mEq Oral Given 09/19/23 1823) acetaminophen (Tylenol) tablet 1,000 mg (1,000 mg Oral Given 09/19/23 1836) Response to therapies provided: As above Diagnostics & Treatments/Interventions considered: As above Management discussions with other Clinicians: hospitalist PROCEDURES: Unless otherwise noted below, none. Procedures FINAL IMPRESSION 1. Near syncope 2. Closed head injury, initial encounter 3. Fall, initial encounter 4. Compression fracture of T5 vertebra, initial encounter ([facility]) 5. Compression fracture of T7 vertebra, initial encounter ([facility]) 6. Compression fracture of T8 vertebra, initial encounter ([facility]) 7. Compression fracture of L1 vertebra, initial encounter ([facility]) DISPOSITION Admit 09/19/2023 06:48:16 PM PATIENT REFERRED TO: No follow-up provider specified. DISCHARGE MEDICATIONS: New Prescriptions No medications on file (Comment: Please note this report has been produced using speech recognition software and may contain errors related to that system including errors in grammar, punctuation, and spelling, as well as words and phrases that may be inappropriate. If there are any questions or concerns please feel free to contact the dictating provider for clarification.) Heydi Ceballos MD (electronically signed) Emergency Medicine Resident Heydi Ceballos MD Resident 09/19/231907 Emergency Department Encounter [facility] ED Patient: Gonzalo Deluca : 1955 Date of Evaluation: 09/19/2023 ED Supervising Physician: Jono Weathers MD I personally evaluated Gonzalo Deluca and made/approved the management plan and take responsibility for the patient management. This will serve as my Supervisory note and shared attestation. I did perform a substantive portion of the visit including all aspects of the Medical Decision Making. I wore appropriate PPE for the entirety of this encounter. In brief, Gonzalo Deluca is a 67 y.o. that presents to the emergency department for evaluation of injuries from a fall. Patient states she fell and hit her left back and buttock area. Patient states he has been having back pain due to shingles in the left low back area. She does have history of COPD. Denies increased shortness of breath. She did hit her head but denies loss of consciousness. Complains of a bump on her head in the right occiput area Focused exam: Awake and alert. There is a small hematoma on the right occiput. Otherwise no palpable step-off on the scalp. Midline cervical spine nontender. Lungs with occasional expiratory wheeze. Heart regular rate and rhythm. Abdomen soft nondistended without focal tenderness rebound or guarding. Patient has healing shingles rash on her left low back area. No obvious bony prominence tenderness in the thoracic spine. She has some upper lumbar paraspinous muscle tenderness. Equal distal pulses in lower extremities. Neurologic exam has no focal deficits. NIH on my exam equals 0. EKG: Normal sinus rhythm. Rate of 97. Evidence of old inferior infarct. No acute appearing ST segment elevation. No significant change compared to previous of 08/07/2023. Today's EKG interpreted by this examiner. Chest x-ray: COPD changes. No acute infiltrate. DJD with multiple areas of compression fractures in the thoracic spine. Interpreted by this examiner. X-ray pelvis shows postsurgical changes of previous fracture repair, no acute fracture. Interpreted by this examiner Brief ED course/MDM: Laboratory studies obtained and patient has moderate to severe hypokalemia. Patient has had syncope. She did hit her head suffering head trauma but has no intracranial hemorrhage. There is no gross focal neurologic deficits. Do feel she is admitted for cardiac monitoring, electrolyte replacement. Patient is admitted in fair condition Diagnostics interpreted by me: Xray(s) multiple x-rays as above CT scan(s) CT head as above EKG; see my interpretation elsewhere in the chart All diagnostic, treatment, and disposition decisions were made by myself in conjunction with the Resident. I also supervised cardenas portions of any procedures performed by the Resident. For all further details of the patient's emergency department visit, please see their documentation. (Comment: Please note this report has been produced using speech recognition software and may contain errors related to that system including errors in grammar, punctuation, and spelling, as well as words and phrases that may be inappropriate. If there are any questions or concerns please feel free to contact the dictating provider for clarification.) Jono Weathers MD [employer] Jono Weathers MD 09/19/231903 documented in this encounter [facility] 09-19-2023 Emergency department Note Pt provided with a toni laurie and chicken salad sandwich. VERA Brown 09/19/231939 [facility] 09-19-2023 Emergency department Note Pt on 2lpm of oxygen. Pt 89% on room air. Oxygen increased to 3lpm. VERA Brown 09/19/23 1732 [facility] 09-19-2023 Emergency department Note Pt to radiology. VERA Brown 09/19/23 1711 [facility] 09-19-2023 Physician Emergency department Note EMERGENCY DEPARTMENT ENCOUNTER Pt Name: Gonzalo Deluca Birthdate 1955 Date of evaluation: 09/19/2023 ED Provider: Heydi Ceballos MD CHIEF COMPLAINT Chief Complaint Patient presents with Fall Pt arrived by EMS for a fall at home. EMS states she fell and hit her left side and has some rib pain. Negative LOC and not on blood thinners. Pt is on oxygen at 2lpm for COPD. Pt denies chest pain and SOB. HISTORY OF PRESENT ILLNESS (Location/Symptom, Timing/Onset, Context/Setting, Quality, Duration, Modifying Factors, Severity) Note limiting factors. I wore appropriate PPE for the entirety of this encounter. HPI Gonzalo Deluca is a 67 y.o. female who presents to the emergency department for fall status post near syncope. Patient arrives via EMS. Patient states that she guillermina from a chair and was walking over to another room when she started feeling lightheaded which caused her to fall. Patient states that she did not lose consciousness and does not take any blood thinners. Patient does state that she hit the back of her head. Denies nausea/vomiting, confusion, focal weakness, paresthesias. Patient is currently dealing with shingles at the moment over her left lower chest and does have significant pain due to this. Patient also has a history of COPD and requires 2 to 3 L nasal cannula at baseline. Here in the ED, patient denies recent illness, fever/chills, change in appetite, chest pain, shortness of breath, abdominal pain, dysuria, diarrhea. Nursing Notes were reviewed. Limitations to history: Outside historians: REVIEW OF SYSTEMS Review of Systems As noted in HPI. PAST MEDICAL HISTORY Past Medical History: Diagnosis Date Abnormal stress test Allergic rhinitis Arthritis Asthma Bronchitis Cancer (CMS/HCC) (HCC) skin Cervical cancer (CMS/HCC) (HCC) Chest pain COPD (chronic obstructive pulmonary disease) ([facility]) USE OXYGEN 3 L AT NIGHT DDD (degenerative disc disease), cervical Defect, retina, with detachment right DJD (degenerative joint disease), lumbar Emphysema lung ([facility]) Former smoker Hematuria SCHEDULED FOR THE PROCEDURE /SURGERY ON 02/11/2017 Hypokalemia Lung nodules Near syncope 09/19/2023 Osteoporosis Palpitations Pneumonia Recurrent major depression ([facility]) Sciatica Thoracic compression fracture ([facility]) Vitamin D deficiency SURGICAL HISTORY Past Surgical History: Procedure Laterality Date CYSTOSCOPY 01/12/2017 OFFICE PROCEDURE CYSTOSCOPY 02/11/2017 C&P bladder biopsy EYE SURGERY detached retina 1994 HYSTERECTOMY 11/06/2019 ABDOMINAL RADICAL HYSTERECTOMY WITH BSO AND PELVIC LYMPH; DR. ZIYAD MENENDEZ [facility] OTHER SURGICAL HISTORY Left 12/19/2019 Med Port POWER Regular Size OTHER SURGICAL HISTORY Left 11/07/2022 Percutaneous skeltal fixation femoral fracture TUBAL LIGATION 1992 CURRENT MEDICATIONS Previous Medications ALBUTEROL 108 (90 BASE) MCG/ACT INHALER Inhale 2 puffs every 4 hours as needed. ALENDRONATE (FOSAMAX) 70 MG TABLET Take 70 mg by mouth once a week. ASPIRIN 81 MG EC TABLET Take 81 mg by mouth. ATORVASTATIN (LIPITOR) 40 MG TABLET Take 1 tablet by mouth Nightly. BUPROPION XL (WELLBUTRIN XL) 150 MG 24 HR TABLET Take 150 mg by mouth in the morning. CALCITONIN (MIACALCIN) 200 UNIT/ML INJECTION Inject 0.25 mL (50 Units) into the shoulder, thigh, or buttocks daily. CALCIUM CARBONATE-CHOLECALCIFEROL (OYSTER SHELL) 250-3.125 MG-MCG TABLET Take 1 tablet by mouth. CLONAZEPAM (KLONOPIN) 0.5 MG TABLET Take 1 tablet by mouth Nightly. CYCLOBENZAPRINE (FLEXERIL) 10 MG TABLET Take 1 tablet (10 mg) by mouth 3 times daily as needed for muscle spasms for up to 10 days. DICLOFENAC SODIUM (VOLTAREN) 1 % GEL Apply 4 g topically 2 times daily. DULOXETINE (CYMBALTA) [address] CAPSULE Take 1 capsule (60 mg) by mouth daily. Do not crush or chew. FLUTICASONE (FLONASE) 50 MCG/ACT NASAL SPRAY 2 sprays in the morning. FLUTICASONE FUROATE-VILANTEROL (BREO ELLIPTA) 200-25 MCG/ACT AEROSOL POWDER Inhale 1 puff daily. GABAPENTIN (NEURONTIN) 600 MG TABLET Take 1 tablet by mouth daily. MAGNESIUM OXIDE (MAG-OX) 400 MG TABLET 400 mg daily. MONTELUKAST (SINGULAIR) 10 MG TABLET Take 10 mg by mouth Nightly. NICOTINE (NICODERM, STEP 1) 21 MG/24HR PATCH Place 1 patch on the skin daily. Do not start before November 09, 2022. TIOTROPIUM (SPIRIVA RESPIMAT) 2.5 MCG/ACT INHALER Inhale 2 puffs in the morning. ZINC 50 MG CAPSULE Take 50 mg by mouth. ALLERGIES Allergies Allergen Reactions Pollen Extract Unknown FAMILY HISTORY Family History Problem Relation Name Age of Onset Colon cancer Neg Hx Ovarian cancer Neg Hx Cancer Mother breast- to liver Cancer Sister breast Cancer Father lung to brain No Known Problems Brother Uterine cancer Neg Hx SOCIAL HISTORY Social History Socioeconomic History Marital status: Tobacco Use Smoking status: Former Current packs/day: 0.00 Types: Cigarettes Quit date: 09/20/2011 Years since quittin.0 Smokeless tobacco: Never Tobacco comments: Quit smoking: pt states she quit 4-5 years ago Vaping Use Vaping status: Every Day Substance and Sexual Activity Alcohol use: Not Currently Comment: Approx once a year Drug use: No Social Determinants of Health Financial Resource Strain: Low Risk (05/20/2023) Received from [facility] Overall Financial Resource Strain (CARDIA) Difficulty of Paying Living Expenses: Not very hard Food Insecurity: No Food Insecurity (05/20/2023) Received from [facility] Hunger Vital Sign Worried About Running Out of Food in the Last Year: Never true Ran Out of Food in the Last Year: Never true Transportation Needs: No Transportation Needs (05/20/2023) Received from [facility] PRAPARE - Transportation Lack of Transportation (Medical): No Lack of Transportation (Non-Medical): No Physical Activity: Inactive (05/20/2023) Received from [facility] Exercise Vital Sign Days of Exercise per Week: 0 days Minutes of Exercise per Session: 0 min Stress: Stress Concern Present (05/20/2023) Received from [facility] [employer] [place] of Occupational Health - Occupational Stress Questionnaire Feeling of Stress : To some extent Social Connections: Unknown (05/20/2023) Received from [facility] Social Connection and Isolation Panel [NHANES] Frequency of Communication with Friends and Family: Twice a week Frequency of Social Gatherings with Friends and Family: Patient declined Attends Judaism Services: Never Active Member of Clubs or Organizations: No Attends Club or Organization Meetings: Patient declined Marital Status: Intimate Partner Violence: Not At Risk (05/21/2022) Humiliation, Afraid, Rape, and Kick questionnaire Fear of Current or Ex-Partner: No Emotionally Abused: No Physically Abused: No Sexually Abused: No Housing Stability: Low Risk (05/20/2023) Received from [facility] Housing Stability Vital Sign Unable to Pay for Housing in the Last Year: No Number of Places Lived in the Last Year: 1 In the last 12 months, was there a time when you did not have a steady place to sleep or slept in a senior living (including now)?: No SCREENINGS PHYSICAL EXAM ED Triage Vitals Temp Pulse Resp BP -- -- -- -- SpO2 Temp src Heart Rate Source Patient Position -- -- -- -- BP Location FiO2 (%) -- -- Physical Exam Vitals and nursing note reviewed. Constitutional: General: She is not in acute distress. Appearance: She is not ill-appearing. HENT: Head: Normocephalic and atraumatic. Comments: No obvious bony deformities or step offs Eyes: Extraocular Movements: Extraocular movements intact. Pupils: Pupils are equal, round, and reactive to light. Cardiovascular: Rate and Rhythm: Normal rate and regular rhythm. Pulses: Normal pulses. Pulmonary: Effort: Pulmonary effort is normal. No respiratory distress. Breath sounds: Normal breath sounds. Comments: TTP around area of shingles rash. No bony deformities or crepitus Chest: Chest wall: Tenderness present. Abdominal: General: There is no distension. Palpations: Abdomen is soft. Musculoskeletal: General: No tenderness or deformity. Normal range of motion. Cervical back: Normal range of motion and neck supple. No tenderness. Neurological: Mental Status: She is alert and oriented to person, place, and time. DIAGNOSTIC RESULTS EKG: If performed, reviewed by me with my interpretation noted below in [facility]. Refer to [facility] for official interpretation. RADIOLOGY: Refer to [facility] below for my independent interpretation. Interpretation per the Radiologist below, if available at the time of this note: CT thoracic spine wo IV contrast Final Result Impression: No acute osseous abnormality. Nonspecific sclerotic lesion within the C7 vertebral body may represent a bone island among others. Correlate with patient risk factors and consider follow-up whole-body bone scan as clinically directed. There is a left-sided catheter from a subclavian approach with catheter tip in the SVC. Examination: CT thoracic spine Indication: syncope and fall Technique: Axial CT images of the thoracic spine were obtained at 1 mm intervals Sagittal and coronal reconstructions were reviewed as well. Dose reduction was employed with automatic exposure control. Findings: Counting will be based on the small sclerotic lesion anteriorly within the C7 Recent compression fractures are present in the midthoracic region, most pronounced at T5 and T8. Moderate compression deformity of T7. Moderate compression deformity of L1. Fractures appear remote. There is thoracic kyphosis and osteopenia. There is peribronchial thickening, bilaterally. Fairly extensive emphysematous changes are present. Mild infiltrate, scar or atelectasis of the right lung base present. Mild atelectasis or scar of the left lung base noted. No sizable pulmonary nodule. Impression: Moderate to severe compression fracture of T5 and T8. Moderate compression deformity of T7. Moderate L1 compression fracture. Osteopenia. Stents of emphysematous changes with peribronchial thickening and scarring. Probable mild right basilar airspace disease. Bronchiectasis is also present. Report Dictated on Electronically Signed By: Clark Duffy MD Electronically Signed Date/Time: 09/19/2023 6:[address] cervical spine wo IV contrast Final Result Impression: No acute osseous abnormality. Nonspecific sclerotic lesion within the C7 vertebral body may represent a bone island among others. Correlate with patient risk factors and consider follow-up whole-body bone scan as clinically directed. There is a left-sided catheter from a subclavian approach with catheter tip in the SVC. Examination: CT thoracic spine Indication: syncope and fall Technique: Axial CT images of the thoracic spine were obtained at 1 mm intervals Sagittal and coronal reconstructions were reviewed as well. Dose reduction was employed with automatic exposure control. Findings: Counting will be based on the small sclerotic lesion anteriorly within the C7 Recent compression fractures are present in the midthoracic region, most pronounced at T5 and T8. Moderate compression deformity of T7. Moderate compression deformity of L1. Fractures appear remote. There is thoracic kyphosis and osteopenia. There is peribronchial thickening, bilaterally. Fairly extensive emphysematous changes are present. Mild infiltrate, scar or atelectasis of the right lung base present. Mild atelectasis or scar of the left lung base noted. No sizable pulmonary nodule. Impression: Moderate to severe compression fracture of T5 and T8. Moderate compression deformity of T7. Moderate L1 compression fracture. Osteopenia. Stents of emphysematous changes with peribronchial thickening and scarring. Probable mild right basilar airspace disease. Bronchiectasis is also present. Report Dictated on Electronically Signed By: Clark Duffy MD Electronically Signed Date/Time: 09/19/2023 6:[address] head wo IV contrast Final Result No intracranial traumatic injuries. Report Dictated on Electronically Signed By: Brando Tejada MD Electronically Signed Date/Time: 09/19/2023 5:55 PM EDT XR chest 2 views Final Result Radiographic features suggestive of COPD. Compression fractures in the midthoracic spine with thoracic kyphosis. EXAMINATION: AP pelvis one view INDICATION: sob, hx copd on 2-3L NC FINDINGS: No acute fracture or dislocation is demonstrated. There are three cannulated screws fixating a subcapital left femoral neck fracture. Mild joint space loss laterally within the left hip. Moderate degenerative disc disease of the lower lumbar spine noted. The soft tissues are grossly unremarkable. IMPRESSION: No acute osseous abnormality. Report Dictated on Electronically Signed By: Clark Duffy MD Electronically Signed Date/Time: 09/19/2023 5:26 PM EDT XR pelvis 1 or 2 views Final Result Radiographic features suggestive of COPD. Compression fractures in the midthoracic spine with thoracic kyphosis. EXAMINATION: AP pelvis one view INDICATION: sob, hx copd on 2-3L NC FINDINGS: No acute fracture or dislocation is demonstrated. There are three cannulated screws fixating a subcapital left femoral neck fracture. Mild joint space loss laterally within the left hip. Moderate degenerative disc disease of the lower lumbar spine noted. The soft tissues are grossly unremarkable. IMPRESSION: No acute osseous abnormality. Report Dictated on Electronically Signed By: Clark Duffy MD Electronically Signed Date/Time: 09/19/2023 5:26 PM EDT LABS: Labs Reviewed CBC WITH AUTO DIFFERENTIAL - Abnormal Result Value Auto WBC 19.5 (*) RBC 4.18 Hemoglobin 12.7 Hematocrit 39.6 MCV 94.7 MCH 30.4 MCHC 32.1 RDW 13.0 Platelets 339 MPV 9.3 nRBC 0.0 Neutrophils Relative 86.1 (*) Lymphocytes Relative 6.5 (*) Monocytes Relative 5.1 Eosinophils Relative 1.5 Basophils Relative 0.2 Immature Grans % 0.6 Neutrophils Absolute 16.8 (*) Lymphocytes Absolute 1.3 Monocytes Absolute 1.0 (*) Eosinophils Absolute 0.3 Basophils Absolute 0.0 Immature Grans Absolute 0.1 (*) COMPREHENSIVE METABOLIC PANEL - Abnormal SODIUM 140 POTASSIUM 2.3 (*) CHLORIDE 93 (*) CARBON DIOXIDE 35 (*) ANION GAP 13 UREA NITROGEN 36 (*) CREATININE 1.33 (*) GLUCOSE 99 CALCIUM 9.0 AST (SGOT) 35 ALT 38 (*) ALKALINE PHOSPHATASE 115 ALBUMIN 3.9 BILIRUBIN, TOTAL 0.5 TOTAL PROTEIN 7.1 eGFR 44.2 (*) BLOOD GAS, VENOUS - Abnormal pH, Venous 7.398 pCO2, Venous 49.6 pO2, Venous 50.1 HCO3, Venous 29.9 O2 Sat, Venous 85.8 Base Excess, Venous 4.1 (*) Hgb, blood gas 13.4 TCO2, Venous 31.4 (*) Source Of Oxygen Nasal cannula Narrative: Assessment of oxygenation is best done with an arterial blood gas determination. Reference ranges for pO2, bicarbonate, and base excess are for mixed venous blood. Specimens drawn from a peripheral vein will often have higher values. TROPONIN, WITH SERIAL REFLEX - Normal TROPONIN I 0.025 Narrative: Patients with high levels of Biotin oral intake (ie >5 mg/day) may have falsely decreased Troponin levels. COMPLETE URINALYSIS WITH REFLEX TO CULTURE Narrative: The following orders were created for panel order Urinalysis complete with reflex to Culture. Procedure Abnormality Status --------- ------ Complete Urinalysis[[id number]] Please view results for these tests on the individual orders. COMPLETE URINALYSIS TROPONIN I TROPONIN I All other labs were within normal range or not returned at time of this dictation. EMERGENCY DEPARTMENT COURSE and DIFFERENTIAL DIAGNOSIS/MDM: Vitals: Vitals: 09/19/23 1639 BP: (!) 141/79 BP Location: Left arm Patient Position: Sitting Pulse: 99 Resp: 18 Temp: 36.8 C (98.2 F) TempSrc: Oral SpO2: (!) 92% Weight: 52.2 kg (115 lb) Height: 1.651 m (5' 5") Clinical Impression: The patient presented with chief complaint as above. Patient's vital signs were reviewed by me. Pertinent history and physical exam as above. Nursing notes were reviewed by me. The differential diagnosis associated with this patient's presentation includes acute hypoxic event, ACS, COPD exacerbation, pneumonia, arrhythmia, electrolyte abnormalities, metabolic derangements, UTI, other infectious process, ICH, fracture, and others or a combination of the above. Our workup consisted of ordering/reviewing EKG, CT head and C-spine, chest x-ray and pelvic x-ray, and blood work with urine studies. Reassessment: EKG shows sinus rhythm with prolonged QT interval, consistent with prior EKG though prolonged QTc interval is new. CMP does have panic lab with hypokalemia of 2.3 as well as what looks to be prerenal acidemia and elevated bicarb. VBG will be obtained. Patient given IV fluids, potassium and magnesium repletion for hypokalemia and prolonged QT. CBC does reveal leukocytosis of 19.5 which is nearly doubled from patient's baseline 1 month ago. No anemia. Chest x-ray reveals changes consistent with COPD as well as compression fractures in the mid thoracic spine with thoracic kyphosis. CT thoracic spine was added given patient did have some pain to this area, which revealed multiple recent midthoracic compression fractures and a likely remote lumbar compression fracture. X-ray of the pelvis unremarkable. Discussed patient with hospitalist, who agreed to admit patient for further management including further monitoring and repletion of electrolyte abnormalities and follow-up of compression fractures. Patient admitted in stable condition. Diagnoses as of 09/19/23 1900 Near syncope Closed head injury, initial encounter Fall, initial encounter Compression fracture of T5 vertebra, initial encounter (HCC) Compression fracture of T7 vertebra, initial encounter (HCC) Compression fracture of T8 vertebra, initial encounter (HCC) Compression fracture of L1 vertebra, initial encounter (HCC) External records reviewed: Chronic conditions impacting care: Social determinants of health affecting care: Diagnostics independently interpreted by me: As above ED Medications managed: Medications potassium chloride IVPB 10 mEq (10 mEq IntraVENous New Bag 09/19/23 182) magnesium sulfate IVPB premix 2,000 mg (2,000 mg IntraVENous New Bag 09/19/23 182) sodium chloride 0.9 % bolus 500 mL (500 mL IntraVENous New Bag 09/19/23 1740) potassium chloride CR (Klor-Con M10) ER tablet 40 mEq (40 mEq Oral Given 09/19/23 182) acetaminophen (Tylenol) tablet 1,000 mg (1,000 mg Oral Given 09/19/23 183) Response to therapies provided: As above Diagnostics & Treatments/Interventions considered: As above Management discussions with other Clinicians: hospitalist PROCEDURES: Unless otherwise noted below, none. Procedures FINAL IMPRESSION 1. Near syncope 2. Closed head injury, initial encounter 3. Fall, initial encounter 4. Compression fracture of T5 vertebra, initial encounter (HCC) 5. Compression fracture of T7 vertebra, initial encounter (HCC) 6. Compression fracture of T8 vertebra, initial encounter ([facility]) 7. Compression fracture of L1 vertebra, initial encounter ([facility]) DISPOSITION Admit 09/19/2023 06:48:16 PM PATIENT REFERRED TO: No follow-up provider specified. DISCHARGE MEDICATIONS: New Prescriptions No medications on file (Comment: Please note this report has been produced using speech recognition software and may contain errors related to that system including errors in grammar, punctuation, and spelling, as well as words and phrases that may be inappropriate. If there are any questions or concerns please feel free to contact the dictating provider for clarification.) Heydi Ceballos MD (electronically signed) Emergency Medicine Resident Heydi Ceballos MD Resident 09/19/23 [id number] [facility] 09-19-2023 Physician Emergency department Note Emergency Department Encounter [facility] ED Patient: Gonzalo Deluca : 1955 Date of Evaluation: 09/19/2023 ED Supervising Physician: Jono Weathers MD I personally evaluated Gonzalo Deluca and made/approved the management plan and take responsibility for the patient management. This will serve as my Supervisory note and shared attestation. I did perform a substantive portion of the visit including all aspects of the Medical Decision Making. I wore appropriate PPE for the entirety of this encounter. In brief, Gonzalo Deluca is a 67 y.o. that presents to the emergency department for evaluation of injuries from a fall. Patient states she fell and hit her left back and buttock area. Patient states he has been having back pain due to shingles in the left low back area. She does have history of COPD. Denies increased shortness of breath. She did hit her head but denies loss of consciousness. Complains of a bump on her head in the right occiput area Focused exam: Awake and alert. There is a small hematoma on the right occiput. Otherwise no palpable step-off on the scalp. Midline cervical spine nontender. Lungs with occasional expiratory wheeze. Heart regular rate and rhythm. Abdomen soft nondistended without focal tenderness rebound or guarding. Patient has healing shingles rash on her left low back area. No obvious bony prominence tenderness in the thoracic spine. She has some upper lumbar paraspinous muscle tenderness. Equal distal pulses in lower extremities. Neurologic exam has no focal deficits. NIH on my exam equals 0. EKG: Normal sinus rhythm. Rate of 97. Evidence of old inferior infarct. No acute appearing ST segment elevation. No significant change compared to previous of 08/07/2023. Today's EKG interpreted by this examiner. Chest x-ray: COPD changes. No acute infiltrate. DJD with multiple areas of compression fractures in the thoracic spine. Interpreted by this examiner. X-ray pelvis shows postsurgical changes of previous fracture repair, no acute fracture. Interpreted by this examiner Brief ED course/MDM: Laboratory studies obtained and patient has moderate to severe hypokalemia. Patient has had syncope. She did hit her head suffering head trauma but has no intracranial hemorrhage. There is no gross focal neurologic deficits. Do feel she is admitted for cardiac monitoring, electrolyte replacement. Patient is admitted in fair condition Diagnostics interpreted by me: Xray(s) multiple x-rays as above CT scan(s) CT head as above EKG; see my interpretation elsewhere in the chart All diagnostic, treatment, and disposition decisions were made by myself in conjunction with the Resident. I also supervised cardenas portions of any procedures performed by the Resident. For all further details of the patient's emergency department visit, please see their documentation. (Comment: Please note this report has been produced using speech recognition software and may contain errors related to that system including errors in grammar, punctuation, and spelling, as well as words and phrases that may be inappropriate. If there are any questions or concerns please feel free to contact the dictating provider for clarification.) Jono Weathers MD [facility] Jono Weathers MD 09/19/231903 [employer] Phone: 09-16-2023 Telephone encounter Note Prescription Refill Information The patient has been identified by name and date of : Yes Caregiver verified no other encounters exist for this prescription request: Yes Caregiver confirmed with patient/requestor that no other refills are due, in the near future, with this provider at this time: Yes The last office visit in the department: 09/08/23 Does the patient have a future office visit with this provider/department: No Requested Prescriptions Pending Prescriptions Disp Refills mirtazapine (REMERON) 15 mg tablet 90 tablet 0 Sig: Take 1 tablet by mouth daily at bedtime. Whit Shay LPN September 16, 2023 10:08 AM [facility] 09-16-2023 Miscellaneous Notes Prescription Refill Information The patient has been identified by name and date of : Yes Caregiver verified no other encounters exist for this prescription request: Yes Caregiver confirmed with patient/requestor that no other refills are due, in the near future, with this provider at this time: Yes The last office visit in the department: 09/08/23 Does the patient have a future office visit with this provider/department: No Requested Prescriptions Pending Prescriptions Disp Refills mirtazapine (REMERON) 15 mg tablet 90 tablet 0 Sig: Take 1 tablet by mouth daily at bedtime. Whit Shay LPN September 16, 2023 10:08 AM documented in this encounter [facility] 09-15-2023 Telephone encounter Note Mychart sent [facility] 09-15-2023 Miscellaneous Notes Mychart sent Schedule follow up appt with me for chronic pain Pharmacy verified in [facility] Patient has been identified by name and date of : Yes Patient aware RX will be sent to pharmacy. No need to notify patient. Patient phones for refill(s): Requested Prescriptions Pending Prescriptions Disp Refills oxyCODONE-acetaminophen (PERCOCET) 5-325 mg tablet 120 tablet 0 Sig: Take 1 tablet by mouth every 6 hours as needed for pain for up to 30 days. Date of last office visit : 09/08/2023 Date of next office visit : Visit date not found Last 2 Encounter Wt Readings: Date: Wt: 09/08/2023 55.5 kg (122 lb 5.7 oz) 05/02/2023 60.1 kg (132 lb 7.9 oz) Please advise. Silvia Trejo MA documented in this encounter [facility] 09-15-2023 Telephone encounter Note Schedule follow up appt with me for chronic pain [facility] 09-15-2023 Telephone encounter Note Pharmacy verified in [facility] Patient has been identified by name and date of : Yes Patient aware RX will be sent to pharmacy. No need to notify patient. Patient phones for refill(s): Requested Prescriptions Pending Prescriptions Disp Refills oxyCODONE-acetaminophen (PERCOCET) 5-325 mg tablet 120 tablet 0 Sig: Take 1 tablet by mouth every 6 hours as needed for pain for up to 30 days. Date of last office visit : 09/08/2023 Date of next office visit : Visit date not found Last 2 Encounter Wt Readings: Date: Wt: 09/08/2023 55.5 kg (122 lb 5.7 oz) 05/02/2023 60.1 kg (132 lb 7.9 oz) Please advise. Silvia Trejo MA [facility] 09-14-2023 Telephone encounter Note Prescription Refill Information The patient has been identified by name and date of : Yes Caregiver verified no other encounters exist for this prescription request: Yes Caregiver confirmed with patient/requestor that no other refills are due, in the near future, with this provider at this time: Yes The last office visit in the department: 09/08/23 Does the patient have a future office visit with this provider/department: No Requested Prescriptions Pending Prescriptions Disp Refills QUEtiapine (SEROQUEL) 100 mg tablet [Pharmacy Med Name: QUETIAPINE FUMARATE 100 MG TAB] 180 tablet 1 Sig: take 2 tablets by mouth at bedtime as needed Whit Shay LPN September 14, 2023 10:[address] [facility] 09-14-2023 Miscellaneous Notes Prescription Refill Information The patient has been identified by name and date of : Yes Caregiver verified no other encounters exist for this prescription request: Yes Caregiver confirmed with patient/requestor that no other refills are due, in the near future, with this provider at this time: Yes The last office visit in the department: 09/08/23 Does the patient have a future office visit with this provider/department: No Requested Prescriptions Pending Prescriptions Disp Refills QUEtiapine (SEROQUEL) 100 mg tablet [Pharmacy Med Name: QUETIAPINE FUMARATE 100 MG TAB] 180 tablet 1 Sig: take 2 tablets by mouth at bedtime as needed Whit Shay LPN September 14, 2023 10:57 AM documented in this encounter [facility] 09-08-2023 Note HNO ID: [id number] Author: BARBI GOLDBERG MD Service: ? Author Type: Physician Type: Progress Notes Filed: 09/08/2023 16:09 Note Text: Gonzalo Deluca is a 67 year old female who presents today with concern or complaint of Patient presents with: Shingles: On left side onset 2 days ago had pain left lower back then noted she had a rash it's burning has tried cold which did help some has never had shingles before, did not get the vaccine COPD on oxygen breathing always difficult / chronic SOB, stable interested in steroids if that would help her shingles pain no DM has done well w/ steroids in the past PAST MEDICAL HISTORY Diagnosis Date COPD (chronic obstructive pulmonary disease) (HCC) DDD (degenerative disc disease), lumbar Encounter for chronic pain management Major depression, recurrent, chronic (HCC) Osteoporosis Pulmonary nodule, right 2016 MEDS reviewed ALLERGIES: Seasonal Allergies PHYSICAL EXAMINATION: BP 139/87 Pulse 105 Temp 37.4 ?C (99.3 ?F) (Temporal) Ht 164.1 cm (5' 4.61") Wt 55.5 kg (122 lb 5.7 oz) SpO2 92% BMI 20.61 kg/m? General appearance: alert, cooperative, pleasant, in NAD, on oxygen per nasal cannula, in wheelchair Skin: Rash in dermatomal distribution left lumbar back radiating around to left side of lower abdomen - erythematous, sl indurated, few vessicles ASSESSMENT/PLAN: 1. Herpes zoster without complication - ICD9: 053.9, ICD10: B02.9 onset 2 days ago, tx w/ valtrex tid x 7 days will add prednisone in effort to improve pain control and given add'l benefit to comorbidity of COPD, also discussed topical lidocaine spray ok, cool compress ok, f/u if sx not improving or any concerns, briefly discussed add'l option of gabapentin for nerve pain if this plan is insufficient or or if persistent pain/postherpetic neuralgia after tx - VALACYCLOVIR 1 GRAM TABLET - PREDNISONE 10 MG TABLET Barbi Goldberg MD [facility] 09-08-2023 History of Presen t illness Narrative Gonzalo Deluca is a 67 year old female who presents today with concern or complaint of Patient presents with: Shingles: On left side onset 2 days ago had pain left lower back then noted she had a rash it's burning has tried cold which did help some has never had shingles before, did not get the vaccine COPD on oxygen breathing always difficult / chronic SOB, stable interested in steroids if that would help her shingles pain no DM has done well w/ steroids in the past PAST MEDICAL HISTORY Diagnosis Date COPD (chronic obstructive pulmonary disease) (HCC) DDD (degenerative disc disease), lumbar Encounter for chronic pain management Major depression, recurrent, chronic (HCC) Osteoporosis Pulmonary nodule, right 2016 MEDS reviewed ALLERGIES: Seasonal Allergies PHYSICAL EXAMINATION: BP 139/87 Pulse 105 Temp 37.4 C (99.3 F) (Temporal) Ht 164.1 cm (5' 4.61") Wt 55.5 kg (122 lb 5.7 oz) SpO2 92% BMI 20.61 kg/m General appearance: alert, cooperative, pleasant, in NAD, on oxygen per nasal cannula, in wheelchair Skin: Rash in dermatomal distribution left lumbar back radiating around to left side of lower abdomen - erythematous, sl indurated, few vessicles ASSESSMENT/PLAN: 1. Herpes zoster without complication - ICD9: 053.9, ICD10: B02.9 onset 2 days ago, tx w/ valtrex tid x 7 days will add prednisone in effort to improve pain control and given add'l benefit to comorbidity of COPD, also discussed topical lidocaine spray ok, cool compress ok, f/u if sx not improving or any concerns, briefly discussed add'l option of gabapentin for nerve pain if this plan is insufficient or or if persistent pain/postherpetic neuralgia after tx - VALACYCLOVIR 1 GRAM TABLET - PREDNISONE 10 MG TABLET Barbi Goldberg MD Mammogram Screening Never done Colorectal Cancer Screening Never done RSV Vaccine(1 - 1-dose 60+ series) Never done Shingrix Vaccine(2 of 2) due on 12/06/2019 Bone Density Screening due on 2021 Lung Cancer Screening due on 10/14/2022 Covid-19 Vaccine( season) Never done Advance Directive Discussion due on 03/21/2023 documented in this encounter [facility] 09-08-2023 Note HNO ID: [id number] Author: TATE WEATHERS MA Service: ? 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 Whit Shay LPN [facility] 09-07-2023 Miscellaneous Notes LM for patient letting her know we have not received the form from [employer]. Whit Shay LPN Gonzalo is calling Herminia Case MD today with concern regarding Electronic Communication [facility] ) Patient has been identified by name and birthdate. Duration of symptoms: N/A Person calling: self daughter: Karishma Call patient at: at home [phone] (home) [phone] (cell) Was an appointment scheduled: No Closing statement: Results or non-symptom based questions: Thank you for calling [facility], your call will be returned within the next business day. Lala Jay documented in this encounter [facility] 09-06-2023 Telephone encounter Note Gonzalo is calling Herminia Case MD today with concern regarding Electronic Communication (FAX from [facility] is going to be coming over that needs to be faxed back to them ) Patient has been identified by name and birthdate. Duration of symptoms: N/A Person calling: self daughter: Karishma Call patient at: at home [phone] (home) [phone] (cell) Was an appointment scheduled: No Closing statement: Results or non-symptom based questions: Thank you for calling [facility], your call will be returned within the next business day. Lala Jay [facility] 08-22-2023 Telephone encounter Note Last appointment: 05/20/23 Next appointment: 08/24/23 Pharmacy verified in [facility]. Refill(s) requested: Requested Prescriptions Pending Prescriptions Disp Refills oxyCODONE-acetaminophen (PERCOCET) 5-325 mg tablet 120 tablet 0 Sig: Take 1 tablet by mouth every 6 hours as needed for pain for up to 30 days. Refused Prescriptions Disp Refills cyclobenzaprine (FLEXERIL) 5 mg tablet 30 tablet 2 Sig: Take 1 tablet by mouth every 12 hours. Order(s) pended. Please advise. Tate Weathers MA, SALAD [employer]F [facility] 08-22-2023 Miscellaneous Notes Last appointment: 05/20/23 Next appointment: 08/24/23 Pharmacy verified in [facility]. Refill(s) requested: Requested Prescriptions Pending Prescriptions Disp Refills oxyCODONE-acetaminophen (PERCOCET) 5-325 mg tablet 120 tablet 0 Sig: Take 1 tablet by mouth every 6 hours as needed for pain for up to 30 days. Refused Prescriptions Disp Refills cyclobenzaprine (FLEXERIL) 5 mg tablet 30 tablet 2 Sig: Take 1 tablet by mouth every 12 hours. Order(s) pended. Please advise. Tate Weathers MA, [employer] documented in this encounter [facility] 08-05-2023 Telephone encounter Note Last appointment: 06/10/23 Next appointment: 08/16/23 Pharmacy verified in [facility]. Refill(s) requested: Requested Prescriptions Pending Prescriptions Disp Refills cyclobenzaprine (FLEXERIL) 5 mg tablet [Pharmacy Med Name: CYCLOBENZAPRINE 5 MG TABLET] 30 tablet 2 Sig: take 1 tablet by mouth twice a day as needed Order(s) pended. Please advise. Whit Shay LPN, [employer] [facility] 08-05-2023 Miscellaneous Notes Last appointment: 06/10/23 Next appointment: 08/16/23 Pharmacy verified in [facility]. Refill(s) requested: Requested Prescriptions Pending Prescriptions Disp Refills cyclobenzaprine (FLEXERIL) 5 mg tablet [Pharmacy Med Name: CYCLOBENZAPRINE 5 MG TABLET] 30 tablet 2 Sig: take 1 tablet by mouth twice a day as needed Order(s) pended. Please advise. Whit Shay LPN, [employer] documented in this encounter [facility] 07-23-2023 Telephone encounter Note Last appointment: 06/10/23 Next appointment: 08/03/23 Pharmacy verified in [facility]. Refill(s) requested: Requested Prescriptions Pending Prescriptions Disp Refills oxyCODONE-acetaminophen (PERCOCET) 5-325 mg tablet 120 tablet 0 Sig: Take 1 tablet by mouth every 6 hours as needed for pain for up to 30 days. Order(s) pended. Please advise. Whit Shay LPN, ELISEO [facility] 07-23-2023 Miscellaneous Notes Last appointment: 06/10/23 Next appointment: 08/03/23 Pharmacy verified in [facility]. Refill(s) requested: Requested Prescriptions Pending Prescriptions Disp Refills oxyCODONE-acetaminophen (PERCOCET) 5-325 mg tablet 120 tablet 0 Sig: Take 1 tablet by mouth every 6 hours as needed for pain for up to 30 days. Order(s) pended. Please advise. Whit Shay LPN, ELISEO documented in this encounter [facility] 07-20-2023 Telephone encounter Note Pharmacy verified in [facility] Patient has been identified by name and date of : Yes Patient aware RX will be sent to pharmacy. No need to notify patient. Pharmacy phones for refill(s): Requested Prescriptions Pending Prescriptions Disp Refills buPROPion XL (WELLBUTRIN XL) 150 mg 24 hr tablet [Pharmacy Med Name: BUPROPION HCL XL 150 MG TABLET] 90 tablet 3 Sig: take 1 tablet by mouth every day Date of last office visit : 05/02/2023 Date of next office visit : 08/03/2023 Last 2 Encounter Wt Readings: Date: Wt: 05/02/2023 60.1 kg (132 lb 7.9 oz) 01/14/2023 62.1 kg (137 lb) Thyroid: No results found for: TSH Diabetes: No results found for: HBA1C Cholesterol: Triglyceride (mg/dL) Date Value 09/15/2022 150 12/07/2018 48 HDL Cholesterol (mg/dL) Date Value 09/15/2022 54 12/07/2018 61 LDL Cholesterol (mg/dL) Date Value 09/15/2022 85 12/07/2018 88 ALT (U/L) Date Value 09/15/2022 12 Non HDL Cholesterol (mg/dL) Date Value 09/15/2022 115 12/07/2018 98 Blood Pressure: BUN (mg/dL) Date Value 09/15/2022 15 02/05/2016 14 Creatinine Date Value 09/15/2022 0.64 mg/dL 08/28/2018 0.48 MG/DL 02/05/2016 0.52 mg/dL Sodium Date Value 09/15/2022 142 mmol/L 08/28/2018 141 MEQ/L 02/05/2016 141 mEq/L Potassium Date Value 09/15/2022 4.4 mmol/L 08/28/2018 2.9 MEQ/L 02/05/2016 3.5 mEq/L Last 1 Encounter BP Readings: Date: BP: 05/02/2023 112/78 Coumadin: No results found for: INR Blood Counts: RBC Date Value 09/15/2022 4.01 m/uL 08/28/2018 4.76 M/uL 02/05/2016 4.20 mil/cmm WBC Date Value 09/15/2022 9.72 k/uL 08/28/2018 11.5 K/uL 02/05/2016 15.0 thou/cmm Hematocrit (%) Date Value 09/15/2022 39.3 02/05/2016 42.4 HEMATOCRIT (%) Date Value 08/28/2018 42.6 Hemoglobin (g/dL) Date Value 09/15/2022 12.1 HEMOGLOBIN (g/dL) Date Value 08/28/2018 14.1 Platelet Count Date Value 09/15/2022 349 k/uL 02/05/2016 352 thou/cmm PLATELETS (k/uL) Date Value 08/28/2018 265 Liver Function: ALT (U/L) Date Value 09/15/2022 12 AST (U/L) Date Value 09/15/2022 17 Potassium: Potassium Date Value 09/15/2022 4.4 mmol/L 08/28/2018 2.9 MEQ/L 02/05/2016 3.5 mEq/L B12: No results found for: "B12" Please advise. Nicole Sabillon MA [facility] 07-20-2023 Miscellaneous Notes Pharmacy verified in [facility] Patient has been identified by name and date of : Yes Patient aware RX will be sent to pharmacy. No need to notify patient. Pharmacy phones for refill(s): Requested Prescriptions Pending Prescriptions Disp Refills buPROPion XL (WELLBUTRIN XL) 150 mg 24 hr tablet [Pharmacy Med Name: BUPROPION HCL XL 150 MG TABLET] 90 tablet 3 Sig: take 1 tablet by mouth every day Date of last office visit : 05/02/2023 Date of next office visit : 08/03/2023 Last 2 Encounter Wt Readings: Date: Wt: 05/02/2023 60.1 kg (132 lb 7.9 oz) 01/14/2023 62.1 kg (137 lb) Thyroid: No results found for: TSH Diabetes: No results found for: HBA1C Cholesterol: Triglyceride (mg/dL) Date Value 09/15/2022 150 12/07/2018 48 HDL Cholesterol (mg/dL) Date Value 09/15/2022 54 12/07/2018 61 LDL Cholesterol (mg/dL) Date Value 09/15/2022 85 12/07/2018 88 ALT (U/L) Date Value 09/15/2022 12 Non HDL Cholesterol (mg/dL) Date Value 09/15/2022 115 12/07/2018 98 Blood Pressure: BUN (mg/dL) Date Value 09/15/2022 15 02/05/2016 14 Creatinine Date Value 09/15/2022 0.64 mg/dL 08/28/2018 0.48 MG/DL 02/05/2016 0.52 mg/dL Sodium Date Value 09/15/2022 142 mmol/L 08/28/2018 141 MEQ/L 02/05/2016 141 mEq/L Potassium Date Value 09/15/2022 4.4 mmol/L 08/28/2018 2.9 MEQ/L 02/05/2016 3.5 mEq/L Last 1 Encounter BP Readings: Date: BP: 05/02/2023 112/78 Coumadin: No results found for: INR Blood Counts: RBC Date Value 09/15/2022 4.01 m/uL 08/28/2018 4.76 M/uL 02/05/2016 4.20 mil/cmm WBC Date Value 09/15/2022 9.72 k/uL 08/28/2018 11.5 K/uL 02/05/2016 15.0 thou/cmm Hematocrit (%) Date Value 09/15/2022 39.3 02/05/2016 42.4 HEMATOCRIT (%) Date Value 08/28/2018 42.6 Hemoglobin (g/dL) Date Value 09/15/2022 12.1 HEMOGLOBIN (g/dL) Date Value 08/28/2018 14.1 Platelet Count Date Value 09/15/2022 349 k/uL 02/05/2016 352 thou/cmm PLATELETS (k/uL) Date Value 08/28/2018 265 Liver Function: ALT (U/L) Date Value 09/15/2022 12 AST (U/L) Date Value 09/15/2022 17 Potassium: Potassium Date Value 09/15/2022 4.4 mmol/L 08/28/2018 2.9 MEQ/L 02/05/2016 3.5 mEq/L B12: No results found for: "B12" Please advise. Nicole Sabillon MA documented in this encounter [facility] 07-08-2023 Telephone encounter Note LM for patient to call the office. Whit Shay LPN [facility] 07-08-2023 Miscellaneous Notes LM for patient to call the office. Whit Shay LPN Rx sent for advair which is similar. Received fax from [facility], the Fluticasone-Vilanterol 200-25, is not covered by insurance. Please advise. Whit Shay LPN documented in this encounter [facility] 07-08-2023 Telephone encounter Note Rx sent for advair which is similar. [facility] 07-04-2023 Miscellaneous Notes Pharmacy verified in [facility] Patient has been identified by name and date of : Yes Patient aware RX will be sent to pharmacy. No need to notify patient. Patient phones for refill(s): Requested Prescriptions Pending Prescriptions Disp Refills PARoxetine (PAXIL) 40 mg tablet 30 tablet 2 Sig: Take 1 tablet by mouth once daily. Take 1/2 tablet at bedtime for 2 weeks, then increase to full tablet QHS. Date of last office visit : 05/02/2023 Date of next office visit : 07/22/2023 Last 2 Encounter Wt Readings: Date: Wt: 05/02/2023 60.1 kg (132 lb 7.9 oz) 01/14/2023 62.1 kg (137 lb) Not applicable Please advise. Maria Alejandra Reno MA documented in this encounter [facility] 06-30-2023 Telephone encounter Note Received fax from [facility], the Fluticasone-Vilanterol 200-25, is not covered by insurance. Please advise. Whit Shay LPN [facility] 06-28-2023 Miscellaneous Notes Last appointment: 06/10/23 Next appointment: 07/22/23 Pharmacy verified in [facility]. Refill(s) requested: Requested Prescriptions Pending Prescriptions Disp Refills fluticasone-vilanterol (BREO ELLIPTA) 200-25 mcg/dose inhaler 60 Each 5 Sig: Inhale 1 Inhalation as instructed once daily. Order(s) pended. Please advise. Whit Shay LPN, [employer] documented in this encounter [facility] 06-27-2023 Miscellaneous Notes Pharmacy verified in [facility] Patient has been identified by name and date of : Yes Patient aware RX will be sent to pharmacy. No need to notify patient. Patient phones for refill(s): Requested Prescriptions Pending Prescriptions Disp Refills diclofenac (VOLTAREN ARTHRITIS PAIN) 1 % topical gel 200 g 5 Sig: Apply 2 g to affected area four times daily. oxyCODONE-acetaminophen (PERCOCET) 5-325 mg tablet 120 tablet 0 Sig: Take 1 tablet by mouth every 6 hours as needed for pain for up to 30 days. Date of last office visit : 05/02/2023 Date of next office visit : 07/22/2023 Last 2 Encounter Wt Readings: Date: Wt: 05/02/2023 60.1 kg (132 lb 7.9 oz) 01/14/2023 62.1 kg (137 lb) Not applicable Please advise. Maria Alejandra Reno MA documented in this encounter [facility] 06-24-2023 Miscellaneous Notes Last appointment: 06/10/23 Next appointment: 07/22/23 Pharmacy verified in [facility]. Refill(s) requested: Requested Prescriptions Pending Prescriptions Disp Refills busPIRone (BUSPAR) 15 mg tablet 90 tablet 0 Sig: Take 1 tablet by mouth three times a day. Order(s) pended. Please advise. Rayo Roman MA, [employer] documented in this encounter [facility] 06-11-2023 Miscellaneous Notes Last appointment: 06/10/23 Next appointment: 07/22/23 Pharmacy verified in [facility]. Refill(s) requested: Requested Prescriptions Pending Prescriptions Disp Refills cyclobenzaprine (FLEXERIL) 5 mg tablet [Pharmacy Med Name: CYCLOBENZAPRINE 5 MG TABLET] 30 tablet 2 Sig: take 1 tablet by mouth twice a day as needed Order(s) pended. Please advise. Whit Shay LPN, ELISEO documented in this encounter [facility] 06-10-2023 History of Presen t illness Narrative VIRTUAL VISIT PROGRESS NOTE This is a virtual visit using [employer] Video Visit. It required patient-provider interaction for the medical decision making as documented below. I have communicated my name and active licensure. The patient's identity and physical location were verified at the time of this visit. Either the patient or their legal financial sales representative has been informed of the risks and benefits of -- and alternatives to -- treatment through a remote evaluation and consents to proceed with the evaluation remotely. Gonzalo Deluca is a 67 year old female seen for follow up depression. Depression Added mirtazapine at bedtime last visit - not really helping. Appetite still not great. No side effects. Wellbutrin 150 mg, buspirone 15 mg TID, paxil 40 mg, seroquel 200 mg at bedtime. Still feeling anxious at times, panic attacks couple times a week. Feels anxious when can't breathe well Still on 3 liters oxygen continuous, pulse ox is 92-94, drops down to 88-89 when first getting up Took prednisone after last visit, doing better. HISTORY REVIEWED (electronic chart updated): PAST MEDICAL HISTORY Diagnosis Date COPD (chronic obstructive pulmonary disease) (HCC) DDD (degenerative disc disease), lumbar Encounter for chronic pain management Major depression, recurrent, chronic (HCC) Osteoporosis Pulmonary nodule, right 2016 PAST SURGICAL HISTORY Procedure Laterality Date CYSTOSCOPY 01/12/2017 CYSTOSCOPY 02/11/2017 EYE SURGERY HX Right 1994 detached retina HIP SURGERY HX Left 10/2022 ORIF for fracture TUBAL LIGATION HX 1992 FAMILY HISTORY Problem Relation Age of Onset Breast Cancer Mother 65 other (lung cancer) Father Breast Cancer Sister 62 No Known Problems Brother other (negative genetic testing for breast CA) Daughter Social History Tobacco Use Smoking status: Former Packs/day: 1.50 Years: 69.00 Additional pack years: 0.00 Total pack years: 103.50 Types: Cigarettes Start date: 1971 Quit date: 2018 Years since quittin.3 Smokeless tobacco: Never Tobacco comments: vaping intermittently Vaping Use Vaping Use: Never used Substance Use Topics Alcohol use: No Drug use: No Current Outpatient Medications Medication Sig QUEtiapine (SEROQUEL) 100 mg tablet TAKE 2 TABLETS BY MOUTH AT BEDTIME NEEDED buPROPion XL (WELLBUTRIN XL) 150 mg 24 hr tablet TAKE 1 TABLET BY MOUTH EVERY DAY fluticasone-salmeterol (ADVAIR DISKUS) 250-50 mcg/dose inhaler Inhale 1 Puff as instructed two times a day. RINSE AND GARGLE MOUTH WITH WATER AFTER EACH USE. PARoxetine (PAXIL) 40 mg tablet Take 1 tablet by mouth once daily. Take 1/2 tablet at bedtime for 2 weeks, then increase to full tablet QHS. diclofenac (VOLTAREN ARTHRITIS PAIN) 1 % topical gel Apply 2 g to affected area four times daily. oxyCODONE-acetaminophen (PERCOCET) 5-325 mg tablet Take 1 tablet by mouth every 6 hours as needed for pain for up to 30 days. busPIRone (BUSPAR) 15 mg tablet Take 1 tablet by mouth three times a day. cyclobenzaprine (FLEXERIL) 5 mg tablet take 1 tablet by mouth twice a day as needed Mirtazapine (REMERON) 15 mg tablet Take 1 tablet by mouth daily at bedtime. montelukast (SINGULAIR) 10 mg tablet Take 10 mg by mouth daily at bedtime. diclofenac (VOLTAREN) 1 % topical gel Apply 4 g to affected area. alendronate (FOSAMAX) 70 mg tablet TAKE 1 TABLET BY MOUTH ONE TIME A WEEK. tiotropium bromide (SPIRIVA RESPIMAT) 2.5 mcg/actuation inhaler INHALE 2 PUFFS BY MOUTH ONCE DAILY DIRECTED atorvastatin (LIPITOR) 40 mg tablet TAKE 1 TABLET BY MOUTH EVERY DAY AT NIGHT fluticasone (FLONASE) 50 mcg/actuation nasal spray Use 2 Sprays in each nostril once daily. Nebulizers Use as directed. albuterol (PROVENTIL) 2.5 mg /3 mL (0.083 %) nebulizer solution INHALE 3 ML VIA NEBULIZER EVERY 4 HOURS NEEDED FOR WHEEZE OR FOR SHORTNESS OF BREATH albuterol HFA (PROVENTIL HFA, VENTOLIN HFA) 90 mcg/actuation inhaler Inhale 2 Puffs as instructed every 4 hours as needed for wheezing/shortness of breath. No current facility-administered medications for this visit. ALLERGIES Allergen Reactions Seasonal Allergies Intolerance REVIEW OF SYSTEMS: GENERAL: no recent change in weight, no fever RESPIRATORY: chronic lung disease under good control with current medication CARDIOVASCULAR: no chest pain, no palpitations PHYSICAL EXAMINATION: VIDEO EXAM: (if completed, performed via video enabled technology) GENERAL: alert and appropriate, in no distress, well-hydrated, well nourished, and appears tired SKIN: no rash noted RESPIRATORY: breathing non-labored ASSESSMENT: (F33.1) Moderate episode of recurrent major depressive disorder (HCC) (primary encounter diagnosis) (J43.1) Panlobular emphysema (HCC) (J96.11) Chronic respiratory failure with hypoxia (HCC) PLAN: Diagnoses and all orders for this visit: Moderate episode of recurrent major depressive disorder (HCC) - increase dose from 7.5 to 15 mg Mirtazapine (REMERON) 15 mg tablet; Take 1 tablet by mouth daily at bedtime. Panlobular emphysema (HCC) Fu with pulmonary Chronic respiratory failure with hypoxia (HCC) Continue oxygen supplementation There are no Patient Instructions on file for this visit. Herminia Case MD documented in this encounter [facility] 05-27-2023 Miscellaneous Notes Pharmacy verified in [facility] Patient has been identified by name and date of : Yes Patient aware RX will be sent to pharmacy. No need to notify patient. Patient phones for refill(s): Requested Prescriptions Pending Prescriptions Disp Refills oxyCODONE-acetaminophen (PERCOCET) 5-325 mg tablet 120 tablet 0 Sig: Take 1 tablet by mouth every 6 hours as needed for pain for up to 30 days. Date of last office visit : 05/02/2023 Date of next office visit : 06/10/2023 Last 2 Encounter Wt Readings: Date: Wt: 05/02/2023 60.1 kg (132 lb 7.9 oz) 01/14/2023 62.1 kg (137 lb) Thyroid: No results found for: TSH Diabetes: No results found for: HBA1C Cholesterol: Triglyceride (mg/dL) Date Value 09/15/2022 150 12/07/2018 48 HDL Cholesterol (mg/dL) Date Value 09/15/2022 54 12/07/2018 61 LDL Cholesterol (mg/dL) Date Value 09/15/2022 85 12/07/2018 88 ALT (U/L) Date Value 09/15/2022 12 Non HDL Cholesterol (mg/dL) Date Value 09/15/2022 115 12/07/2018 98 Blood Pressure: BUN (mg/dL) Date Value 09/15/2022 15 02/05/2016 14 Creatinine Date Value 09/15/2022 0.64 mg/dL 08/28/2018 0.48 MG/DL 02/05/2016 0.52 mg/dL Sodium Date Value 09/15/2022 142 mmol/L 08/28/2018 141 MEQ/L 02/05/2016 141 mEq/L Potassium Date Value 09/15/2022 4.4 mmol/L 08/28/2018 2.9 MEQ/L 02/05/2016 3.5 mEq/L Last 1 Encounter BP Readings: Date: BP: 05/02/2023 112/78 Coumadin: No results found for: INR Blood Counts: RBC Date Value 09/15/2022 4.01 m/uL 08/28/2018 4.76 M/uL 02/05/2016 4.20 mil/cmm WBC Date Value 09/15/2022 9.72 k/uL 08/28/2018 11.5 K/uL 02/05/2016 15.0 thou/cmm Hematocrit (%) Date Value 09/15/2022 39.3 02/05/2016 42.4 HEMATOCRIT (%) Date Value 08/28/2018 42.6 Hemoglobin (g/dL) Date Value 09/15/2022 12.1 HEMOGLOBIN (g/dL) Date Value 08/28/2018 14.1 Platelet Count Date Value 09/15/2022 349 k/uL 02/05/2016 352 thou/cmm PLATELETS (k/uL) Date Value 08/28/2018 265 Liver Function: ALT (U/L) Date Value 09/15/2022 12 AST (U/L) Date Value 09/15/2022 17 Potassium: Potassium Date Value 09/15/2022 4.4 mmol/L 08/28/2018 2.9 MEQ/L 02/05/2016 3.5 mEq/L B12: No results found for: "B12" Please advise. Nicole Sabillon Ma documented in this encounter [facility] 05-26-2023 Miscellaneous Notes Last appointment: 05-20-23 Next appointment: 06-10-23 Pharmacy verified in [facility]. Refill(s) requested: Requested Prescriptions Pending Prescriptions Disp Refills busPIRone (BUSPAR) 15 mg tablet 90 tablet 0 Sig: Take 1 tablet by mouth three times a day. Order(s) pended. Please advise. Evangelina Baltazar MA, ELISEO documented in this encounter [facility] 05-25-2023 Miscellaneous Notes Type of letter/form/fax request - orders Form received from [facility] Placed on MD desk () for completion. Completed form needs to be faxed to [phone]. Route to [place] when form completed for processing documented in this encounter [facility] 05-25-2023 Miscellaneous Notes Request completed and faxed to [phone] with confirmation of receipt. [facility] Done. Type of letter/form/fax request - Home Health Care Orders Form received from [facility] on 05/18/23 floor and placed on MD desk () for completion. Completed form needs to be faxed to [phone]. Route to [place] when form completed for processing documented in this encounter [facility] 05-20-2023 History of Presen t illness Narrative VIRTUAL VISIT PROGRESS NOTE This is a virtual visit using [employer] Video Visit. It required patient-provider interaction for the medical decision making as documented below. I have communicated my name and active licensure. The patient's identity and physical location were verified at the time of this visit. Either the patient or their legal financial sales representative has been informed of the risks and benefits of -- and alternatives to -- treatment through a remote evaluation and consents to proceed with the evaluation remotely. Gonzalo Deluca is a 67 year old female seen for follow up anxiety. Anxiety Added buspirone to last visit - daughter worried about her feeling depressed, increased sadness, not eating, isolating herself. No major stressors. Sleeping well, 10-12 hours. Knows she sleeps too much because she doesn't want to do anything. Buspirone 2-3 times a day helping, no panic attacks. Copd - wheezing, sinus pressure, coughing x 1 week No fever. Feels like she needs a steroid. No body aches. Has used marijuana gummies in the last for anxiety - helped. HISTORY REVIEWED (electronic chart updated): PAST MEDICAL HISTORY Diagnosis Date COPD (chronic obstructive pulmonary disease) (HCC) DDD (degenerative disc disease), lumbar Encounter for chronic pain management Major depression, recurrent, chronic (HCC) Osteoporosis Pulmonary nodule, right 2015 PAST SURGICAL HISTORY Procedure Laterality Date CYSTOSCOPY 01/12/2017 CYSTOSCOPY 02/11/2017 EYE SURGERY HX Right 1994 detached retina HIP SURGERY HX Left 10/2022 ORIF for fracture TUBAL LIGATION HX 1992 FAMILY HISTORY Problem Relation Age of Onset Breast Cancer Mother 65 other (lung cancer) Father Breast Cancer Sister 62 No Known Problems Brother other (negative genetic testing for breast CA) Daughter Social History Tobacco Use Smoking status: Former Packs/day: 1.50 Years: 69.00 Additional pack years: 0.00 Total pack years: 103.50 Types: Cigarettes Start date: 1971 Quit date: 2018 Years since quittin.1 Smokeless tobacco: Never Tobacco comments: vaping intermittently Vaping Use Vaping Use: Never used Substance Use Topics Alcohol use: No Drug use: No Current Outpatient Medications Medication Sig Mirtazapine (REMERON) 7.5 mg tablet Take 1 tablet by mouth daily at bedtime. predniSONE (DELTASONE) 20 mg tablet 2 tabs daily x 3 days, then 1 tab daily x 3 days, then 1/2 tab daily x 4 days oxyCODONE-acetaminophen (PERCOCET) 5-325 mg tablet Take 1 tablet by mouth every 6 hours as needed for pain for up to 30 days. busPIRone (BUSPAR) 15 mg tablet Take 1 tablet by mouth three times a day. PARoxetine (PAXIL) 40 mg tablet Take 1 tablet by mouth once daily. Take 1/2 tablet at bedtime for 2 weeks, then increase to full tablet QHS. montelukast (SINGULAIR) 10 mg tablet Take 10 mg by mouth daily at bedtime. cyclobenzaprine (FLEXERIL) 10 mg tablet Take 10 mg by mouth. diclofenac (VOLTAREN) 1 % topical gel Apply 4 g to affected area. diclofenac (VOLTAREN ARTHRITIS PAIN) 1 % topical gel Apply 2 g to affected area four times daily. QUEtiapine (SEROQUEL) 100 mg tablet TAKE 2 TABLETS BY MOUTH AT BEDTIME NEEDED alendronate (FOSAMAX) 70 mg tablet TAKE 1 TABLET BY MOUTH ONE TIME A WEEK. tiotropium bromide (SPIRIVA RESPIMAT) 2.5 mcg/actuation inhaler INHALE 2 PUFFS BY MOUTH ONCE DAILY DIRECTED atorvastatin (LIPITOR) 40 mg tablet TAKE 1 TABLET BY MOUTH EVERY DAY AT NIGHT fluticasone-vilanterol (BREO ELLIPTA) 200-25 mcg/dose inhaler Inhale 1 Inhalation as instructed once daily. fluticasone (FLONASE) 50 mcg/actuation nasal spray Use 2 Sprays in each nostril once daily. buPROPion XL (WELLBUTRIN XL) 150 mg 24 hr tablet TAKE 1 TABLET BY MOUTH EVERY DAY Nebulizers Use as directed. albuterol (PROVENTIL) 2.5 mg /3 mL (0.083 %) nebulizer solution INHALE 3 ML VIA NEBULIZER EVERY 4 HOURS NEEDED FOR WHEEZE OR FOR SHORTNESS OF BREATH albuterol HFA (PROVENTIL HFA, VENTOLIN HFA) 90 mcg/actuation inhaler Inhale 2 Puffs as instructed every 4 hours as needed for wheezing/shortness of breath. No current facility-administered medications for this visit. ALLERGIES Allergen Reactions Seasonal Allergies Intolerance REVIEW OF SYSTEMS: GENERAL: feeling well without fatigue, no recent change in weight RESPIRATORY: as above CARDIOVASCULAR: no chest pain, no palpitations PHYSICAL EXAMINATION: VIDEO EXAM: (if completed, performed via video enabled technology) GENERAL: alert and appropriate, in no distress, well-hydrated, well nourished, and appears tired SKIN: no rash noted RESPIRATORY: breathing non-labored per daughter, has audible wheezing ASSESSMENT: (F33.1) Moderate episode of recurrent major depressive disorder (HCC) (primary encounter diagnosis) (J43.1) Panlobular emphysema (HCC) PLAN: Diagnoses and all orders for this visit: Moderate episode of recurrent major depressive disorder (HCC) - start Mirtazapine (REMERON) 7.5 mg tablet; Take 1 tablet by mouth daily at bedtime. Panlobular emphysema (HCC) - start predniSONE (DELTASONE) 20 mg tablet; 2 tabs daily x 3 days, then 1 tab daily x 3 days, then 1/2 tab daily x 4 days Fu 1 month There are no Patient Instructions on file for this visit. Herminia Case MD documented in this encounter [facility] 05-19-2023 Miscellaneous Notes Home care Certification Form 485 received from 05/18/23. For cert dates 05/11/23 to 07/09/23 that were signed on 05/18/23. Recertification Patient's home health 485 form / care plan for stated certification period reviewed and signed. Relevant medical records were reviewed. No changes were indicated documented in this encounter [facility] 05-18-2023 Miscellaneous Notes Request completed and faxed. Done. Type of letter/form/fax request - Home Health Care Orders Form received from [facility] on floor and placed on MD desk () for completion. Completed form needs to be faxed to [phone]. Route to [place] when form completed for processing documented in this encounter [facility] 05-09-2023 Miscellaneous Notes Request completed and faxed. Type of letter/form/fax request - Home Health Care Orders Form received from [facility] on 05/06/23 floor and placed on MD desk () for completion. Completed form needs to be faxed to [phone]. Route to [place] when form completed for processing documented in this encounter [facility] 05-02-2023 History of Presen t illness Narrative Patient presents with: Follow Up HPI: Gonzalo Deluca is a 67 year old female who presents to the office today for follow up. Anxiety - on paxil, switched from cymbalta to paxil. Chronic pain Left hip fracture - 10/2022 Compression fracture 01/2023 Went to rehab , then home right before ojai Back home currently, home nursing PT and nursing coming once a week. [facility]tox 07/2021 Falls Uses a cane or walker at home, has episodes of tripping over her oxygen, fell off the toilet while getting up. Only eats once a day, typically at night, chicken, potatoes. Copd Getting panic attacks when she can't breathe Keeps oxygen 2.5-3.5 liters Has taken clonazepam in the past Does struggle to sleep - trazodone helped int he past. REVIEW OF SYSTEMS: CONSTITUTIONAL: No fevers, chills, nightsweats, unintended weight loss HEENT: Denies frequent or severe heaches, nasal congestion/sinus symptoms, problematic allergy problems. EYES: No diplopia or blurry vision. CARDIOVASCULAR: No chest pain, dyspnea, palpitations, orthopnea, PND, ankle edema. PULM: No dyspnea, unexplained cough. GI: No dysphagia/odynophagia, problematic reflux, constipation, diarrhea, changes in stool habits, hematochezia, melena. : No new urinary complaints, including dysuria, gross hematuria or pyuria. NEURO: No new balance problems, peripheral weakness/paresthesias or numbness of concern. MUSC-SKEL: No new joint pain, swelling, or erythema. PSY: No concerns regarding depression, anxiety or panic. INTEGUMENTARY: No new skin changes (rash, new or changing mole, new growth) PAST MEDICAL HISTORY Diagnosis Date COPD (chronic obstructive pulmonary disease) (HCC) DDD (degenerative disc disease), lumbar Encounter for chronic pain management Major depression, recurrent, chronic (HCC) Osteoporosis Pulmonary nodule, right 2015 PAST SURGICAL HISTORY Procedure Laterality Date CYSTOSCOPY 01/12/2017 CYSTOSCOPY 02/11/2017 EYE SURGERY HX Right 1994 detached retina HIP SURGERY HX Left 10/2022 ORIF for fracture TUBAL LIGATION HX 1992 FAMILY HISTORY Problem Relation Age of Onset Breast Cancer Mother 65 other (lung cancer) Father Breast Cancer Sister 62 No Known Problems Brother other (negative genetic testing for breast CA) Daughter Social History Tobacco Use Smoking status: Former Packs/day: 1.50 Years: 69.00 Additional pack years: 0.00 Total pack years: 103.50 Types: Cigarettes Start date: 1971 Quit date: 2018 Years since quittin.1 Smokeless tobacco: Never Tobacco comments: vaping intermittently Vaping Use Vaping Use: Never used Substance Use Topics Alcohol use: No Drug use: No ACTIVE PROBLEM LIST Ddd (Degenerative Disc Disease), Lumbar Panlobular Emphysema (Hcc) Major Depression, Recurrent, Chronic (Hcc) Osteoporosis Pulmonary Nodule, Right Compression Fracture of Body of Thoracic Vertebra (Hcc) Chronic Midline Low Back Pain Without Sciatica History of Cervical Cancer Chronic Respiratory Failure With Hypoxia (Hcc) Compression Fracture of L4 Lumbar Vertebra, With Routine Healing, Subsequent Encounter Moderate Episode of Recurrent Major Depressive Disorder (Hcc) Paul (Generalized Anxiety Disorder) Former Smoker H/O: Cva (Cerebrovascular Accident) Leukocytosis Malignant Neoplasm of Exocervix ([facility]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 Take 1/2 tablet at bedtime for 2 weeks, then increase to full tablet QHS. montelukast (SINGULAIR) 10 mg tablet Take 10 mg by mouth daily at bedtime. cyclobenzaprine (FLEXERIL) 10 mg tablet Take 10 mg by mouth. diclofenac (VOLTAREN) 1 % topical gel Apply 4 g to affected area. diclofenac (VOLTAREN ARTHRITIS PAIN) 1 % topical gel Apply 2 g to affected area four times daily. cyclobenzaprine (FLEXERIL) 5 mg tablet Take 1 tablet by mouth two times a day as needed. QUEtiapine (SEROQUEL) 100 mg tablet TAKE 2 TABLETS BY MOUTH AT BEDTIME NEEDED alendronate (FOSAMAX) 70 mg tablet TAKE 1 TABLET BY MOUTH ONE TIME A WEEK. tiotropium bromide (SPIRIVA RESPIMAT) 2.5 mcg/actuation inhaler INHALE 2 PUFFS BY MOUTH ONCE DAILY DIRECTED atorvastatin (LIPITOR) 40 mg tablet TAKE 1 TABLET BY MOUTH EVERY DAY AT NIGHT fluticasone-vilanterol (BREO ELLIPTA) 200-25 mcg/dose inhaler Inhale 1 Inhalation as instructed once daily. fluticasone (FLONASE) 50 mcg/actuation nasal spray Use 2 Sprays in each nostril once daily. buPROPion XL (WELLBUTRIN XL) 150 mg 24 hr tablet TAKE 1 TABLET BY MOUTH EVERY DAY Nebulizers Use as directed. albuterol (PROVENTIL) 2.5 mg /3 mL (0.083 %) nebulizer solution INHALE 3 ML VIA NEBULIZER EVERY 4 HOURS NEEDED FOR WHEEZE OR FOR SHORTNESS OF BREATH oxyCODONE-acetaminophen (PERCOCET) 5-325 mg tablet Take 1 tablet by mouth every 6 hours as needed for pain for up to 30 days. busPIRone (BUSPAR) 15 mg tablet Take 1 tablet by mouth three times a day. calcitonin, salmon, (MIACALCIN) 200 unit/mL injection Inject 50 Units intramuscularly. gabapentin (NEURONTIN) 600 mg tablet Take 600 mg by mouth daily at bedtime. (Patient not taking: Reported on 05/02/2023) nicotine (NICODERM) 21 mg/24 hr Apply 1 Patch as directed. (Patient not taking: Reported on 05/02/2023) potassium chloride 20 mEq TbER take 2 tablets by mouth in the morning (Patient not taking: Reported on 05/02/2023) albuterol HFA (PROVENTIL HFA, VENTOLIN HFA) 90 mcg/actuation inhaler Inhale 2 Puffs as instructed every 4 hours as needed for wheezing/shortness of breath. EXAM:BP 112/78 Pulse 87 Temp 36.7 C (98.1 F) (Temporal) Ht 164.1 cm (5' 4.61") Wt 60.1 kg (132 lb 7.9 oz) SpO2 90% BMI 22.32 kg/m Last Wt 05/02/23 : 60.1 kg (132 lb 7.9 oz) 01/14/23 : 62.1 kg (137 lb) 09/15/22 : 61.1 kg (134 lb 11.2 oz) 08/06/21 : 58.8 kg (129 lb 9.6 oz) PHYSICAL EXAM: General Appearance: Well appearing, alert, in no acute distress, well-hydrated, well nourished.. Skin: Skin color, texture, turgor normal, no suspicious rashes or lesions. Lungs: Lungs clear to auscultation. No wheezing, rhonchi, rales. Heart: RRR without murmur, gallop, or rubs. No ectopy. Neurologic: Gait not assessed, in wheelchair. ASSESSMENT/PLAN: 1. PAUL (generalized anxiety disorder) - ICD9: 300.02, ICD10: F41.1 (primary diagnosis) - start BUSPIRONE 15 MG TABLET 2. Medication monitoring encounter - ICD9: V58.83, ICD10: Z51.81 - TOX SCREEN ROUT UR - PAIN PANEL, UR QUANT - PAIN PANEL, UR QUANT - SPECIMEN VALIDITY, URINE 3. Compression fracture of body of thoracic vertebra (HCC) - ICD9: 805.2, ICD10: S22.000A - PDMP website checked and validated. All prescriptions have been APPROPRIATELY filled. No suspicious activity was identified. 05/03/2023 by Herminia Case MD - OXYCODONE-ACETAMINOPHEN 5 MG-325 MG TABLET Decrease dose from 5 tabs per day to 4 4. Other closed nondisplaced fracture of proximal end of right humerus with routine healing, subsequent encounter - ICD9: V54.11, ICD10: S42.294D - OXYCODONE-ACETAMINOPHEN 5 MG-325 MG TABLET 5. Chronic respiratory failure with hypoxia (HCC) - ICD9: 518.83, 799.02, ICD10: J96.11 - stable, keep sats around 92% 6. Panlobular emphysema (HCC) - ICD9: 492.8, ICD10: J43.1 - stable 7. Moderate episode of recurrent major depressive disorder (HCC) - ICD9: 296.32, ICD10: F33.1 - continue current dose. Herminia Case Mammogram Screening Never done Colorectal Cancer Screening Never done RSV Vaccine(1 - 1-dose 60+ series) Never done Bone Density Screening Never done Lung Cancer Screening due on 10/14/2022 Advance Directive Discussion due on 03/21/2023 documented in this encounter [facility] 05-02-2023 Instructions Whit Shay LPN - 05/02/2023 2:26 PM EST [facility] TEST INFORMATION [facility] HOURS: Lab is open: 7:30am to 5:00pm M - , 7:30am to 4:00pm on Tue and 8am -12pm on Tue. The lab is located in [facility] on the first floor. There is a registration window at the lab, available 7 am to 3 pm Tuesday - Tuesday. If registration is unavailable at the lab, you may register at the patient registration office near the front lobby of the hospital. SCHEDULING A LAB APPOINTMENT: Laboratory appointments are recommended.Walk ins are still accepted. Call [phone] or schedule via [employer] scheduling ticket. ROUTINE LAB ORDERS 60 days after they are entered. If your lab orders , you may be required to wait in the lab while they are reinstated FUTURE ORDERS are lab tests to be completed on the EXPECTED date. These orders 60 days after the expected date. STANDING ORDERS are recurring orders with an expiration date. The interval will indicate how often the test should be completed. CT / MRI / IVP If you have lab tests ordered for one of these radiology exams, please complete the blood work at least one day prior to the scheduled exam. PRESCRIPTION REFILL REQUESTS Request prescription refills through your [employer] account or contact your Pharmacy. My Chart Schedule My Appointment enables you to view your established primary care provider's open schedule and book an appointment online in real-time. This feature is available in internal medicine, family medicine, or pediatrics at any of our [facility] locations and main campus. documented in this encounter [facility] 04-29-2023 Miscellaneous Notes Spoke to Amanda who states she has been seeing patient for a few months for palliative care. Discharged from facility about a month ago Fall and Hip fx Fall with femur fx On continuous O2 3.5L - COPD Clonazepam not reordered when she left facility - provider requesting OV Walking with walker [facility] home health care nurse also seeing pt. OV scheduled Tuesday Gonzalo is a patient of Herminia Case MD today NADEEM Patel from [facility] is calling to speak to the nurse to review medications. She has questions related to her anxiety and respiratory status. She stated it was not urgent but needs to speak to the nurse/provider today. Patient has been identified by name and birthdate. Closing statement: Symptom Call: Thank you for calling [facility], your call is very important. A nurse will call in approximately 2-4 hours during business hours. If this is an emergency, please contact 911. [place] Pss documented in this encounter [facility] 04-27-2023 Miscellaneous Notes Please review and advise documented in this encounter [facility] 04-27-2023 Telephone encounter Note Patient cancelled 04-27 appointment via [employer] with the following: Reason for Cancellation: Patient: Lack of Transportation" LVM to r/s [facility] 04-27-2023 Miscellaneous Notes Patient cancelled 04-27 appointment via [employer] with the following: Reason for Cancellation: Patient: Lack of Transportation" LVM to r/s Patient cancelled 04-22 appointment via [employer] stating: Reason for Cancellation: Patient: Schedule Conflict" LVM for patient to call back and get r/s documented in this encounter [facility] 04-21-2023 Telephone encounter Note Patient cancelled 04-22 appointment via [employer] stating: Reason for Cancellation: Patient: Schedule Conflict" LVM for patient to call back and get r/s [facility] 04-21-2023 Miscellaneous Notes Request completed and faxed. Type of letter/form/fax request - Home Health Care Orders Form received from [facility] on 04/17/23 floor and placed on MD desk () for completion. Completed form needs to be faxed to [phone]. Route to NE when form completed for processing documented in this encounter [facility] 03-11-2023 History of Past i llness Narrative Problem Noted Date Diagnosed Date Resolved Date Chronic pain syndrome 03/11/20232022 Moderate malnutrition 01/22/20232022 COPD (chronic obstructive pu lmonary disease) with acute bronchitis (HCC) 02/02/2021 03/09/2023 Obesity, Class I, BMI 30-34.9 12/07/2018 03/11/2023 documented as of this encounter (statuses as of 04/22/2023) [facility]12-22-2023 History of Past illness Narrative* Problem Noted Date Diagnosed Date Resolved Date Chronic pain syndrome 03/11/20232022 Moderate malnutrition 01/22/20232022 COPD (chronic obstructive pu lmonary disease) with acute bronchitis (HCC) 02/02/2021 03/09/2023 Obesity, Class I, BMI 30-34.9 12/07/2018 03/11/2023 documented as of this encounter (statuses as of 04/28/2023) [facility] History of Past illness Narrative* Problem Noted Date Diagnosed Date Resolved Date Chronic pain syndrome 03/11/20232022 Moderate malnutrition 01/22/20232022 COPD (chronic obstructive pu lmonary disease) with acute bronchitis (HCC) 02/02/2021 03/09/2023 Obesity, Class I, BMI 30-34.9 12/07/2018 03/11/2023 documented as of this encounter (statuses as of 05/03/2023) [facility] History of Past illness Narrative* Problem Noted Date Diagnosed Date Resolved Date Chronic pain syndrome 03/11/20232022 Moderate malnutrition 01/22/20232022 COPD (chronic obstructive pu lmonary disease) with acute bronchitis (HCC) 02/02/2021 03/09/2023 Obesity, Class I, BMI 30-34.9 12/07/2018 03/11/2023 documented as of this encounter (statuses as of 05/09/2023) [facility] History of Past illness Narrative* Problem Noted Date Diagnosed Date Resolved Date Chronic pain syndrome 03/11/20232022 Moderate malnutrition 01/22/20232022 COPD (chronic obstructive pu lmonary disease) with acute bronchitis (HCC) 02/02/2021 03/09/2023 Obesity, Class I, BMI 30-34.9 12/07/2018 03/11/2023 documented as of this encounter (statuses as of 05/18/2023) [facility] History of Past illness Narrative* Problem Noted Date Diagnosed Date Resolved Date Chronic pain syndrome 03/11/20232022 Moderate malnutrition 01/22/20232022 COPD (chronic obstructive pu lmonary disease) with acute bronchitis (HCC) 02/02/2021 03/09/2023 Malignant neoplasm of exocervix 11/07/2019 05/20/2023 Obesity, Class I, BMI 30-34.9 12/07/2018 03/11/2023 documented as of this encounter (statuses as of 05/20/2023) [facility] History of Past illness Narrative* Problem Noted Date Diagnosed Date Resolved Date Chronic pain syndrome 03/11/20232022 Moderate malnutrition 01/22/20232022 COPD (chronic obstructive pu lmonary disease) with acute bronchitis (HCC) 02/02/2021 03/09/2023 Malignant neoplasm of exocervix 11/07/2019 05/20/2023 Obesity, Class I, BMI 30-34.9 12/07/2018 03/11/2023 documented as of this encounter (statuses as of 05/21/2023) [facility] History of Past illness Narrative* Problem Noted Date Diagnosed Date Resolved Date Chronic pain syndrome 03/11/20232022 Moderate malnutrition 01/22/20232022 COPD (chronic obstructive pu lmonary disease) with acute bronchitis (HCC) 02/02/2021 03/09/2023 Malignant neoplasm of exocervix 11/07/2019 3 05/20/2023 Obesity, Class I, BMI 30-34.9 12/07/2018 03/11/2023 documented as of this encounter (statuses as of 05/24/2023) [facility] History of Past illness Narrative* Problem Noted Date Diagnosed Date Resolved Date Chronic pain syndrome 03/11/20232022 Moderate malnutrition 01/22/20232022 COPD (chronic obstructive pu lmonary disease) with acute bronchitis (HCC) 02/02/2021 03/09/2023 Malignant neoplasm of exocervix 11/07/2019 05/20/2023 Obesity, Class I, BMI 30-34.9 12/07/2018 03/11/2023 documented as of this encounter (statuses as of 05/26/2023) [facility] History of Past illness Narrative* Problem Noted Date Diagnosed Date Resolved Date Chronic pain syndrome 03/11/20232022 Moderate malnutrition 01/22/20232022 COPD (chronic obstructive pu lmonary disease) with acute bronchitis (HCC) 02/02/2021 03/09/2023 Malignant neoplasm of exocervix 11/07/2019 05/20/2023 Obesity, Class I, BMI 30-34.9 12/07/2018 03/11/2023 documented as of this encounter (statuses as of 05/26/2023) [facility] History of Past illness Narrative* Problem Noted Date Diagnosed Date Resolved Date Chronic pain syndrome 03/11/20232022 Moderate malnutrition 01/22/20232022 COPD (chronic obstructive pu lmonary disease) with acute bronchitis (HCC) 02/02/2021 03/09/2023 Malignant neoplasm of exocervix 11/07/2019 05/20/2023 Obesity, Class I, BMI 30-34.9 12/07/2018 03/11/2023 documented as of this encounter (statuses as of 05/27/2023) [facility] History of Past illness Narrative* Problem Noted Date Diagnosed Date Resolved Date Chronic pain syndrome 03/11/20232022 Moderate malnutrition 01/22/20232022 COPD (chronic obstructive pu lmonary disease) with acute bronchitis (HCC) 02/02/2021 03/09/2023 Malignant neoplasm of exocervix 11/07/2019 05/20/2023 Obesity, Class I, BMI 30-34.9 12/07/2018 03/11/2023 documented as of this encounter (statuses as of 05/27/2023) [facility] History of Past illness Narrative* Problem Noted Date Diagnosed Date Resolved Date Chronic pain syndrome 03/11/20232022 Moderate malnutrition 01/22/20232022 COPD (chronic obstructive pu lmonary disease) with acute bronchitis (HCC) 02/02/2021 03/09/2023 Malignant neoplasm of exocervix 11/07/2019 05/20/2023 Obesity, Class I, BMI 30-34.9 12/07/2018 03/11/2023 documented as of this encounter (statuses as of 06/11/2023) [facility] History of Past illness Narrative* Problem Noted Date Diagnosed Date Resolved Date Chronic pain syndrome 03/11/20232022 Moderate malnutrition 01/22/20232022 COPD (chronic obstructive pu lmonary disease) with acute bronchitis (HCC) 02/02/2021 03/09/2023 Malignant neoplasm of exocervix 11/07/2019 05/20/2023 Obesity, Class I, BMI 30-34.9 12/07/2018 03/11/2023 documented as of this encounter (statuses as of 06/24/2023) [facility] History of Past illness Narrative* Problem Noted Date Diagnosed Date Resolved Date Chronic pain syndrome 03/11/20232022 Moderate malnutrition 01/22/20232022 COPD (chronic obstructive pu lmonary disease) with acute bronchitis (HCC) 02/02/2021 03/09/2023 Malignant neoplasm of exocervix 11/07/2019 05/20/2023 Obesity, Class I, BMI 30-34.9 12/07/2018 03/11/2023 documented as of this encounter (statuses as of 06/27/2023) [facility] History of Past illness Narrative* Problem Noted Date Diagnosed Date Resolved Date Chronic pain syndrome 03/11/20232022 Moderate malnutrition 01/22/20232022 COPD (chronic obstructive pu lmonary disease) with acute bronchitis (HCC) 02/02/2021 03/09/2023 Malignant neoplasm of exocervix 11/07/2019 05/20/2023 Obesity, Class I, BMI 30-34.9 12/07/2018 03/11/2023 documented as of this encounter (statuses as of 06/27/2023) [facility] History of Past illness Narrative* Problem Noted Date Diagnosed Date Resolved Date Chronic pain syndrome 03/11/20232022 Moderate malnutrition 01/22/20232022 COPD (chronic obstructive pu lmonary disease) with acute bronchitis (HCC) 02/02/2021 03/09/2023 Malignant neoplasm of exocervix 11/07/2019 05/20/2023 Obesity, Class I, BMI 30-34.9 12/07/2018 03/11/2023 documented as of this encounter (statuses as of 06/30/2023) [facility] History of Past illness Narrative* Problem Noted Date Diagnosed Date Resolved Date Chronic pain syndrome 03/11/20232022 Moderate malnutrition 01/22/20232022 COPD (chronic obstructive pu lmonary disease) with acute bronchitis (HCC) 02/02/2021 03/09/2023 Malignant neoplasm of exocervix 11/07/2019 05/20/2023 Obesity, Class I, BMI 30-34.9 12/07/2018 03/11/2023 documented as of this encounter (statuses as of 07/05/2023) [facility] History of Past illness Narrative* Problem Noted Date Diagnosed Date Resolved Date Chronic pain syndrome 03/11/20232022 Moderate malnutrition 01/22/20232022 COPD (chronic obstructive pu lmonary disease) with acute bronchitis (HCC) 02/02/2021 03/09/2023 Malignant neoplasm of exocervix 11/07/2019 05/20/2023 Obesity, Class I, BMI 30-34.9 12/07/2018 03/11/2023 documented as of this encounter (statuses as of 07/05/2023) [facility] History of Past illness Narrative* Problem Noted Date Diagnosed Date Resolved Date Chronic pain syndrome 03/11/20232022 Moderate malnutrition 01/22/20232022 COPD (chronic obstructive pu lmonary disease) with acute bronchitis (HCC) 02/02/2021 03/09/2023 Malignant neoplasm of exocervix 11/07/2019 05/20/2023 Obesity, Class I, BMI 30-34.9 12/07/2018 03/11/2023 documented as of this encounter (statuses as of 07/08/2023) [facility]12-19-2023 Miscellaneous Notes* Telephone Encounter - Maria Alejandra Reno MA - 03/08/2023 8:34 AM EST Pharmacy verified in [facility] Patient has been identified by name and date of : Yes Patient aware RX will be sent to pharmacy. No need to notify patient. Patient phones for refill(s): Requested Prescriptions Pending Prescriptions Disp Refills diclofenac (VOLTAREN ARTHRITIS PAIN) 1 % topical gel 200 g 5 Sig: Apply 2 g to affected area four times daily. oxyCODONE-acetaminophen (PERCOCET) 5-325 mg tablet 134 tablet 0 Sig: Take 1 tablet by mouth every 4 hours as needed for pain for up to 30 days. Date of last office visit : 01/14/2023 Date of next office visit : 03/11/2023 Last 2 Encounter Wt Readings: Date: Wt: 01/14/2023 62.1 kg (137 lb) 09/15/2022 61.1 kg (134 lb 11.2 oz) Not applicable Please advise. Maria Alejandra Reno MA [facility] Miscellaneous Notes* Care Coordination - Unknown Case Management - 02/18/2023 4:02 PM EST Patient Choice Patient Name: GONZALO DELUCA Date of : 1955 All Providers Sent Referral Name: [facility] Phone: [phone] Address: [address] [place] [address] * Care Coordination - SATURNINO Garcia - 02/18/2023 2:19 PM EST S/W, follow up Patient discharged to [facility]. Transport set via [facility] at 430p. associate professor of communication provided with report number. I did visit patient in room to notify of transport at 430p. Patient noted she will inform her daughter. * Care Coordination - Nidia Barahona - 02/18/2023 1:34 PM EST Discharge med list transmitted to [facility] via [facility] per TCC request. [id number] was entered into [facility] for the SNF- Facility is aware. * Care Coordination - SATURNINO Garcia - 02/16/2023 1:48 PM EST S/W, transport Transport sheet placed in patient paper chart for [facility] SNF. * Care Coordination - Jordana Lowe RN - 02/16/2023 11:18 AM EST Images from the original note were not included. Care Management Progress Note Remains in HICU due to lumbar fracture. Bone scan planned for 02/17. Ortho following. [facility] able to accept pt. SALAD CHEF tasked to initiate insurance auth. Await insurance approval. Insurance approval received. Attending, ortho, RN & MACHINIST OUTSIDE notified. Pt to have bone scan tomorrowas needs to be completed 3 d after acute fracture to make sure can be seen on scan. Discharge Milestones and Delays Expected Date/Time: 02/18/[address] discharge order Complete med reconciliation Case mgmt discharge readiness Clinical Stability Diagnsotic Workup Expected Discharge History Expected Date/Time Set By Reviewed At 02/18/2023 SATURNINO Garcia 02/16/2023 10:12 AM 02/18/2023 SATURNINO Garcia 02/15/2023 10:33 AM 02/16/2023 Lorenzo Orozco MD 02/14/2023 9:52 AM 02/16/2023 Lorenzo Orozco MD 02/13/2023 9:24 PM Length of Stay (Days): 3 GMLOS: No GMLOS Documented * Care Coordination - Nidia Barahona - 02/15/2023 3:09 PM EST Referral placed to [facility] request. Await review and response regarding ability to accept. TCC notified. * Care Coordination - Ping Lazo RN - 02/15/2023 2:44 PM EST Care Managment Initial Assessment Date: 02/15/2023 Patient Name: Gonzalo Deluca : 1955 Patient Information Source of Information: Patient Cognition/Language: WFL - Within Functional Limits Permission given to speak with patient financial sales representative/caregiver as indicated: Yes (Karishma Deluca dtr [phone]) Confirmation of Payer with patient/family: Yes Payer Name: [facility] Medicare : No Confirmation of Primary Care Physician: Confirmed PCP Name: Herminia Case Seen in last 2 years?: Yes Primary Caregiver: Self If assistance needed, confirmed caregiver ready, willing and able to care for patient at discharge: Confirmed with: Living Arrangements Current Residence: Private Residence Number of Floors 2 Number of Entry Steps: Bed/Bath Levels: Both second floor Facility: Facility Name: Plan to Return: Lives with: Children Support Systems: Children Activities of Daily Living Ambulation: Independent Bathing/Dressing: Independent Elimination/Continence/Toileting: Independent Feeding: Independent Who Assists with Activities of Daily Living: Instrumental Activities of Daily Living Prescription Coverage: Yes [facility]: [facility] Medication Management: Independent Transportation/Shopping: Independent Transportation Mode: Car Needs Assistance with Transportation at Discharge: Yes Meal Preparation: Independent Laundry/Cleaning: Independent Finances/Bill Paying: Independent Communication: Independent Types of Care Services/Equipment Utilized Care Services: Dialysis Type: NA Durable Medical Equipment: Cane, Walker, Oxygen (Continuous or prn) Oxygen Flow Rate: 2.5 to 3 liters Patient's Goal/Discharge Plan Patient expects to be discharged to: SNF Discharge Planning Actions: Continue to follow, Snf Facility referral indicated [place] of choice: [place] of choice discussed, Choice list provided (emailed to [email or web address]) Patient's Choice Rights and [employer] and Collaborative Relationships Disclosed as Indicated for Post-Acute Care: Yes Interdisciplinary Team Engagement: PT/OT Social Work Referral for: Additional Information: Patient admitted to [facility] for treatment of of Lumbar compression fracture. PT/OT recommends SNF. Spoke with patient over the phone. Explained role. Lives w/ daughter in two story home. Independentwith adls. Daughter and Son drives. +PCP, +RX cov, +DME, home oxygen. Discussed SNF. Emailed list to [email or web address]. She did inform me she was at [facility] and would be agreeable to go back there. SALAD CHEF tasked to make referral to [facility]. Did explained will need to confirm bedavailability and obtain insurance authorization. She demonstrates understanding. DCP: SNF, referral to [facility]. Other choices pending. Ping Lazo RN * Home Care - Deanna Romero LPN - 02/14/2023 8:50 AM EST Patient is currently active with [facility]. The patients current certification period will on 03/28/23. The patient is currently receiving PT services through the agency. Desk Maker to continue to follow. documented in this [facility]SPro[facility] [id number] Note* Care Coordination - Unknown Case Management - 02/18/2023 4:02 PM EST Patient Choice Patient Name: GONZALO DELUCA Date of : 1955 All Providers Sent Referral Name: [facility] Phone: [phone] Address: [address] [place] [id number] [id number]* Care Coordination - Unknown Case Management - 02/18/2023 4:02 PM EST Patient Choice Patient Name: GONZALO DELUCA Date of : 1955 All Providers Sent Referral Name: [facility] Phone: [phone] Address: [address] [place] [id number] [id number] Note* Care Coordination - SATURNINO Garcia - 02/18/2023 2:19 PM EST S/W, follow up Patient discharged to [facility]. Transport set via [facility] at 430p. associate professor of communication provided with report number. I did visit patient in room to notify of transport at 430p. Patient noted she will inform her daughter. [id number] Note* Care Coordination - SATURNINO Garcia - 02/18/2023 2:19 PM EST S/W, follow up Patient discharged to [facility]. Transport set via [facility] at 430p. associate professor of communication provided with report number. I did visit patient in room to notify of transport at 430p. Patient noted she will inform her daughter. [place] [id number] Note* Care Coordination - Nidia Barahona - 02/18/2023 1:34 PM EST Discharge med list transmitted to [facility] via [employer] per TCC request. [id number] was entered into [facility] for the SNF- Facility is aware. [place] [id number] Note* Care Coordination - Nidia Barahona - 02/18/2023 1:34 PM EST Discharge med list transmitted to [facility] via [facility] per TCC request. [id number] was entered into [facility] for the SNF- Facility is aware. [facility] [id number] Hospital Discharge instructions* Discharge Instr - Activity* Earlene Echavarria MD - 02/18/2023 1:10 PM EST As tolerated * Discharge Instr - Diet* Earlene Echavarria MD - 02/18/2023 1:11 PM EST Dietary Orders (From admission, onward) Start Ordered 02/14/2340 Adult diet Regular Diet effective now Question: Diet type Answer: Regular 02/14/2340 * Discharge Instr - SHAMA* Rimma Mills RN - 02/16/2023 1:47 PM EST Continuity of Care Form Patient Name: Gonzalo Deluca : 1955 Admit date: 02/13/2023 Discharge date: Code Status Order: Full Code Advance Directives: N Admitting Physician: Lauren Serna MD PCP: HERMINIA CASE MD Discharging Nurse: Discharging Hospital Unit/Room#: 232-08/232-08 A Discharging Unit Phone Number: Emergency Contact: Extended Emergency Contact Information Primary Emergency Contact: Karishma Deluca Address: [address] [place] [address] [place] [address] [place] Mobile Relation: Daughter Secondary Emergency Contact: Jace Deluca Mobile Relation: Son Past Surgical History: Past Surgical History: Procedure Laterality Date CYSTOSCOPY 01/12/2017 OFFICE PROCEDURE CYSTOSCOPY 02/11/2017 C&P bladder biopsy EYE SURGERY detached retina 1995 HYSTERECTOMY 11/06/2019 ABDOMINAL RADICAL HYSTERECTOMY WITH BSO AND PELVIC LYMPH; DR. ZIYAD MENENDEZ [facility] OTHER SURGICAL HISTORY Left 12/19/2019 Med Port POWER Regular Size OTHER SURGICAL HISTORY Left 11/07/2022 Percutaneous skeltal fixation femoral fracture TUBAL LIGATION 1992 Immunization History: Immunization History Administered Date(s) Administered Influenza, Unspecified 01/10/2018 Tdap 08/08/2016 Active Problems: Medical Problems Problem List * (Principal) Lumbar compression fracture, closed, initial encounter (HCC) Other specified complication of vascular prosthetic devices, implants and grafts, initial encounter(HCC) Acute exacerbation of chronic obstructive pulmonary disease (HCC) Nondisplaced fracture of neck of left femur (HCC) Poor venous access Chronic back pain COPD (chronic obstructive pulmonary disease) ([facility]) Overview Signed 01/01/2022 6:48 AM by Interface, Incoming Problems- [facility] Conversion On home 3-4L NC DDD (degenerative disc disease), cervical Leukocytosis Malignant neoplasm of exocervix (HCC) Moderate malnutrition (CMS/HCC) (HCC) Recurrent major depression (HCC) Pulmonary nodule Overview Signed 01/01/2022 6:48 AM by Interface, Incoming Problems- [facility] Conversion Per CT CHest 09/2015: 12 mm nodule (R), 5 mm nodule (L); unchanged CT Chest 08/2016 S/P hysterectomy Sciatica Shortness of breath Supplemental oxygen dependent PNA (pneumonia) H/O: CVA (cerebrovascular accident) Former smoker Isolation/Infection: No active isolations No active infections Nurse Assessment: Last Vital Signs: BP 121/72 (BP Location: Left arm, Patient Position: Lying) Pulse 88 Temp 36.6C (97.9 F) (Temporal) Resp 16 Ht 1.651 m (5' 5") Wt 61.2 kg (135 lb) SpO2 95% BMI 22.47 kg/m Last documented pain score (0-10 scale): Last Weight: Wt Readings from Last 1 Encounters: 02/14/23 61.2 kg (135 lb) Mental Status: {SHAMA Patient Mental Status:69729} IV Access: SHAMA IV Access: None Nursing Mobility/ADLs: Walking Minimal assistance Transfer Minimal assistance Bathing Minimal assistance Dressing Minimal assistance Toileting Minimal assistance Feeding Independent Instrumentation Instructor Independent Med Delivery no Wound Care Documentation and Therapy: Wound/Incision 05/21/22 Traumatic Eye Right (Active) Number of days: 270 Wound/Incision 05/21/22 Traumatic Wrist Left;Posterior (Active) Number of days: 270 Wound/Incision 11/07/22 Incision Leg Anterior;Left;Proximal;Upper (Active) Number of days: 101 Elimination: Continence: Bowel: yes Bladder: yes Urinary Catheter: None Colostomy/Ileostomy/Ileal Conduit: None Date of Last BM: Intake/Output Summary (Last 24 hours) at 02/16/2023 1347 Last data filed at 02/15/2023 1500 Gross per 24 hour Intake 300 ml Output -- Net 300 ml I/O last 3 completed shifts: In: 300 (4.9 mL/kg) [P.O.:300] Out: - (0 mL/kg) Weight: 61.2 kg Safety Concerns: at risk for falls Impairments/Disabilities: none Nutrition Therapy: Current Nutrition Therapy: Oral diet: general Routes of Feeding: oral Liquids: thin liquids Daily Fluid Restriction: no Last Modified Barium Swallow with Video (Video Swallowing Test): not done Treatments at the Time of Hospital Discharge: Respiratory Treatments: Oxygen Therapy: is on oxygen at 3 L/min per nasal cannula. Ventilator: No ventilator support Rehab Therapies: physical therapy and occupational therapy Weight Bearing Status/Restrictions: no restriction Other Medical Equipment (for information only, NOT a DME order): LSO -- wear when out of bed. 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 Update Admission H&P: No change in H&P PHYSICIAN SIGNATURE: * Additional Instructions* Earlene Echavarria MD - 02/18/2023 1:11 PM EST BONe scan with compression fracture, and brace given, also shows rib fractures. Follow up with Dr. Frank CBC and BMP in 3 days documented in this [place]12-01-2023 History of Present illness Narrative* Yesenia Salas RCP - 02/18/2023 11:45 AM EST [facility] Respiratory Care Department Progress Note As part of the Respiratory Assessment Program (RAP), the following Respiratory Therapist evaluationhas been completed, including a chart review and clinical/physical assessment. Respiratory Therapist RAP Evaluation Guideline Points 0 1 2 3 4 Points Strongly Consider History Factor No Pulmonary conditions Stable Pulmonary condition(s) Surgery or Intervention that may impact Pulmonary system (at risk) Surgery or Intervention that is impacting Pulmonary system Active Exacerbation of Pulmonary Condition 1 Respiratory Pattern Regular, RR= 12-18 ADRIAN or Increased RR= 19-24 Irregular, or RR= 25-30 SOB, talk in short sentences, or RR= 31-35 Severe SOB, accessory muscle use, one word answers, or RR>35 0 Aerosol Med(s), High Flow O2 Breath Sounds Clear Diminished in 1 lobe Diminished in ? 2 lobes Adventitious breath sounds Coarse crackles, Wheezes, or Diminished in >2 lobes 2 Aerosol Med(s), Bronchial Hygiene, Hyperinflation Cough & Sputum Strong cough, no secretion retention or production Weak cough, no secretion retention or production Weak cough, w/ production (less often than Q2hr), or secretion retention No cough, w/ secretion retention or production (less often than Q2hr) Significant secretion production (more often than Q2hr) or mucus plug 1 Aerosol Med(s), Bronchial Hygiene, Hyperinflation Level of Activity Ambulatory Ambulatory with Assist Up in chair or edge of bed (dangle) Non-ambulatory, bedridden with active ROM Completely paralyzed or without active ROM 1 Triage 5 0-2 Triage 4 3-5 Triage 3 6-10 Triage 2 11-14 Triage 1 ?15 Total 5 Triage Score = 4 TRIAGE SCORING - SUGGESTED FREQUENCIES Aerosol Therapy Bronchial Hygiene Hyperinflation Triage Score Q4h & PRN 1 Q4hWA (QID) & PRN 2 TID & PRN 3 BID & PRN 4 PRN 5 Therapy(s) Indicated Yes/No Aerosol Medication Y Hyperinflation N Bronchial Hygiene N High Flow Oxygen N Flow Rates PEF (L/Sec) NA IVC NA FVC NA FEV1 NA FEV1/FVC NA Patient instructed and returned demonstration on use of MDI (with spacer, as appropriate) None RT to enter/modify frequency of treatment order in EMR/EHR to match this RAP evaluation. Based on this RAP evaluation the following therapy is being initiated: DUONEB At the following frequency: BID &PRN Comments: Thank you for involving Respiratory in the care of this patient, * Earlene Echavarria MD - 02/17/2023 3:43 PM EST Images from the original note were not included. [phone]: Please page me ([phone]) for patient care issues. [phone]: Please page [facility] Hospitalist for any issues. Subjective: Admit Date: 02/13/2023 PCP: HERMINIA CASE MD Room#: 232-08/232-08 Norma Deluca is a 67 y.o. female who presents with Lumbar compression fracture, closed, initial encounter ([facility]) Interval History: Claims that back pain is better, still refusing MRI because of claustrophobia andalso refuses even with sedation Bone scan was done today, results pending She was hypotensive today morning with a blood pressure of 88 systolic and improved with IV fluid bolus PT recommends SNF, held at discharge because of hypotension denies chest pain, sob, abdominal pain, nausea, vomiting, diarrhea, constipation, fevers, or chills. Adult diet Regular 24HR INTAKE/OUTPUT: No intake or output data in the 24 hours ending 02/17/23 1543 LABS: CBC: Recent Labs 02/15/23 0456 WBC 5.2 RBC 3.36* HGB 10.6* HCT 31.2* MCV 92.9 RDW 13.8 PLT 163 BMP: Recent Labs 02/15/23 0456 02/16/23 0343 02/17/23 0507 NA 138 139 141 K 3.2* 3.3* 3.7 CL 104 105 106 CO2 28 32* 28 BUN 15 16 14 CREATININE 0.52 0.58 0.49* GLUCOSE 91 117* 115* CALCIUM 8.4 8.3* 8.5 ANIONGAP 6 2* 7 LIVER PROFILE:No results for input(s): "AST", "ALT", "BILITOT", "ALKPHOS", "PROT" in the last 72 hours. No lab exists for component: "LABALBU" PT/INR: No results for input(s): "PROTIME", "INR" in the last 72 hours. CARDIAC ENZYMES: No results for input(s): "TROPONINI" in the last 72 hours. Procalcitonin: No results found for: "PROCAL" Objective: Vitals: BP 111/67 Pulse 84 Temp 36.4 C (97.5 F) (Temporal) Resp 16 Ht 5' 5" (1.651 m) Wt 135 lb (61.2 kg) SpO2 96% BMI 22.47 kg/m Pulse Ox: SpO2 Av.5 % Min: 93 % Max: 96 % Supplemental O2: O2 Flow Rate (L/min): 3 L/min 02/17/2023 General appearance: Appears to be in no distress and cooperative to exam HEENT: Eyes: No scleral icterus Oral: Tongue is semi-moist Cardiovascular: S1/S2 heard, RRR Respiratory: Diminished breath sounds bilaterally and no rhonchi or wheezing abdomen: Soft, non-tender, non-distended bowel sounds positive Musculoskeletal: Decreased range of motion of lumbar spine and pain on palpation from the thoracolumbar to the lumbosacral area and thoracic kyphosis is seen Neurologic: No acute motor or sensory deficits are noticed, no facial droop skin: No visible rashes or lesions. Medications: sodium chloride, 100 mL/hr, Last Rate: 100 mL/hr (02/17/23 1130) aspirin, 81 mg, Oral, Daily atorvastatin, 40 mg, Oral, Nightly buPROPion XL, 150 mg, Oral, Daily calcitonin, 50 Units, IntraMUSCular, Daily clonazePAM, 0.5 mg, Oral, Nightly DULoxetine, 60 mg, Oral, Daily enoxaparin, 40 mg, SubCUTAneous, Daily gabapentin, 600 mg, Oral, Daily ipratropium-albuterol, 3 mL, Nebulization, TID montelukast, 10 mg, Oral, Nightly QUEtiapine, 200 mg, Oral, Nightly tiotropium, 1 capsule, Inhalation, Daily Assessment Fall Hypotension-bolused 500 mL of IV normal saline and started IV at 100 cc an hour and a blood pressure improved new compression deformities in L2 and L4. With chronic compression at L3, acute thoracolumbar fracture-no acute surgical intervention, bone scan is done but the results are pending left shoulder pain -no acute surgery Subacute left clavicular fracture w healing from Oct 2022 COPD Chronic problems Hyperlipidemia Anxiety w claustrophobia' Osteoporosis with prior fractures Plan Bolused IV fluids and monitor blood pressure overnight also added bupropion and Cymbalta Bone scan is done and awaiting results replace potassium Diet Adult diet Regular DVT Prophylaxis [x] Lovenox, [] Heparin, [] SCDs, [] Ambulation [] Already on Anticoagulation GI Prophylaxis [] PPI, [] H2 Brigid, [] Carafate, [] Diet/Tube Feeds Code Status Full Code There was a tentative plan of discharge to [facility]p facility today but discharge was held because of hypotension, will recheck blood pressure overnight MDM [] Low, [x] Moderate,[] High Patient's risk as above Total time spent (which include face to face and non face to face encounters) : minutes Toxic drug monitoring/narrow therapeutic index drug monitoring : # Drug name : Lovenox # Route administered : Subcutaneous # Method of monitoring : Daily Extended Emergency Contact Information Primary Emergency Contact: Karishma Deluca Address: [address] [place] [address] [place] [address] [facility] Mobile Relation: Daughter Secondary Emergency Contact: YosiJace Mobile Relation: Son Advance Directive: Full Code Discharge planning: TBD Earlene Echavarria MD Division of Hospitalist Medicine Inpatient Medical Services/[facility] * Oseas Clarence, PT - 02/17/2023 11:39 AM EST Images from the original note were not included. PHYSICAL THERAPY [facility] Treatment Note Name/MRN: Gonzalo Deluca ([id number]) Date of : 1955 Age: 67 y.o. Room/Bed: 232-08/232-08 A Visit #: 2 out of 7 visits Discharge Recommendation: SNF and Continue to assess pending progress Equipment Needed: no, patient owns a cane and FWW Prior Level of Function ADL Assistance: Independent Ambulation Assistance: Independent Device(s) used: front wheeled walker Transfer Assistance: Independent Assessment Pt demo decreased mobility secondary to increased pain today. She demo bed mobility min A, transferto FWW min A and takes a few side steps to HOB with FWW and Jeff. She is very limited by pain. She desat to 85%, recover to 91% on 3L O2. She remains at increased falls risk, SNF remain appropriate Subjective Per RN pt okay for therapy. She is agreeable to PT< in pain from lying on table for bone scan Pain: RN managing pain. 0-10 pain scale: 8/10 Location: LBP Medical Precautions: No active isolations Proper PPE donned/doffed in accordance with facility standards. Fall Risk: Webb Fall Risk Score: 85 (High Risk) Precautions/Restrictions: Right LE Weight Bearing: Weight Bearing As Tolerated Left LE Weight Bearing: Weight Bearing As Tolerated Right UE Weight Bearing: Weight Bearing As Tolerated Left UE Weight Bearing: Weight Bearing As Tolerated Overall Cognitive Status: WNL Overall Orientation Status: Oriented x4 Family/Caregiver Present: none Objective Ambulation Ambulation 1 Assistive device(s) used: front wheeled walker Assist level: Min Assist, Pt able to take a few steps EOB with min A and FWW, demo little to no foot clearance and need assist to manage FWW. Distance (ft): 2 ft Quality of gait: No LOB, shuffling, wide SADIE, slow lauren, postural sway, path deviations, instability through all phases Transfers/Mobility Sit to stand: Min Assist, Pt complete transfer to FWW min A. Therapist cues pt for hand placement. Therapist cues pt for avoid twisting/bending. She demo no LOB, is limited by pain. She demo decreased eccentric control to sit, require min A. Stand to sit: Min Assist Device(s) used: front wheeled walker Bed Mobility Supine to sit: Min Assist, Pt demo log roll with min A to guide trunk. She require increased time due to pain. Therapist cues pt for sequencing for log roll and use of bed rail. She sits EOB Mod I. She desat to 85% but recover to 91% in ~1 min Plan Continue acute PT per plan of care. Safety/Education Safety Safety Devices in place: All fall risk precautions in place, call light within reach, gait belt, patient at risk for falls, nurse notified, and patient left sitting EOB Restraints: No Education Education Given To: patient Education Provided: PT Role, PT Goals, Gait Training, Plan of Care, Precautions, Transfer Training,Energy Conservation, Equipment, Fall Prevention Education, Discharge Recommendations, and Benefits of Increasing Activity Education Method: Verbal and Demonstration Barriers to Learning: None Education Outcome: Verbalized Understanding, Demonstrated Understanding, and Continued Education Needed Outcome Measures AM-PAC AM-PAC Inpatient Mobility Raw Score (No Stairs) : 15 -[facility] Goals Patient Stated Goal: Patient states she doesn't want to fall anymore. Encounter Problems Encounter Problems (Active) Balance Patient will maintain dynamic standing balance for 5 minutes with modified independence in order todemonstrate decreased risk of falling. (Progressing) Start: 02/14/23 Expected End: 02/22/23 Exercise Patient will complete lower extremity exercises for 1-2 sets / 10 reps in order to improve strengthand activity tolerance for mobility. (Not Addressed) Start: 02/14/23 Expected End: 02/22/23 Mobility Patient will ambulate 100 feet with modified independence and rolling walker in order to improve safety and independence with mobility. (Progressing) Start: 02/14/23 Expected End: 02/22/23 Patient will ascend and descend 12 stairs with least restrictive device and supervision in order tosafely negotiate home. (Not Addressed) Start: 02/14/23 Expected End: 02/22/23 Pain - Adult Transfers Patient will perform bed mobility with modified independence in order to improve independence and prepare for out of bed mobility. (Progressing) Start: 02/14/23 Expected End: 02/22/23 Patient will complete functional transfers with rolling walker with modified independence in order to prepare for ambulation. (Progressing) Start: 02/14/23 Expected End: 02/22/23 Therapy Time Individual Co-treatment Time In 1055 Time Out 1105 Minutes 10 Timed Code Treatment Minutes: 8 Minutes (ther act x1) Oseas Lima PT * Betsey Gresham MD - 02/17/2023 10:51 AM EST BS shows uptake at L4 c/w fracture. No uptake elsewhere other than deg changes. LSO ordered from [facility] Can be discharged when medically ready. * Betsey Gresham MD - 02/17/2023 7:02 AM EST H: Recent Labs 02/15/23 0456 HGB 10.6* WBC 5.2 VS: Blood pressure 125/69, pulse 93, temperature 36.6 C (97.9 F), temperature source Temporal, resp. rate 20, height 1.651 m (5' 5"), weight 61.2 kg (135 lb), SpO2 95%. Sleeping. Arouses w/ moderate stimulation. States pain controlled, had "good day" yesterday. Taking perc 5 q6 hrs. PE: NVI. Mobilizes easily. Xray: pnd IMP: L2, L4 compression deformities -- ?acuity PLAN: Bone scan today. OK for discharge to ECF after bone scan done Decision on brace and type of brace depends on if fx's are acute and location of fx's. Brace can be delivered to ECF -- but normally, ECF doesn't follow through on this and patient nevergets brace. Discussed w/ patient. Decrease pain meds. Dr. Ventura to cover until Feb. Lab Results Component Value Date WBC 5.2 02/15/2023 HGB 10.6 (L) 02/15/2023 HCT 31.2 (L) 02/15/2023 PLT 163 02/15/2023 * Roopa More OT - 02/16/2023 1:58 PM EST Images from the original note were not included. OCCUPATIONAL THERAPY [facility] Treatment Note Name/MRN: Gonzalo Deluca ([id number]) Date of : 1955 Age: 67 y.o. Room/Bed: 232-08/232-08 A Visit #: 1 out of 7 visits Discharge Recommendation: SNF Equipment Needed: TBD at next level of care Prior Level of Function ADL Assistance: Independent Ambulation Assistance: Independent Device(s) used: front wheeled walker Transfer Assistance: Independent Assessment Pt tolerating treatment fairly. She was motivated to participate but was limited by her pain and her significant O2 desaturations. Pt able to complete bed mobility with supervision. She required CGA for transfers and min A for mobility with the FWW. Pt unable to complete a household distance of mobility d/t pain and significant Spo2 desaturations. pts Spo2 desaturated to 77% despite pt being non-symptomatic requiring increased O2 and additional time to recover to 90%. SNF remains appropriate d/t pts diminished activity tolerance. Subjective Pt very pleasant and agreeable to therapy. Pain: hip pain worsening with mobility but did not rate Medical Precautions: No active isolations Proper PPE donned/doffed in accordance with facility standards. Fall Risk: Webb Fall Risk Score: 85 (High Risk) Precautions/Restrictions: Right LE Weight Bearing: Weight Bearing As Tolerated Left LE Weight Bearing: Weight Bearing As Tolerated Right UE Weight Bearing: Weight Bearing As Tolerated Left UE Weight Bearing: Weight Bearing As Tolerated Per Ortho: OK to mobilize Family/Caregiver Present: none Objective ADLs Pt declined to attempt toileting or ADLs this date. Bed Mobility Supine to sit: Supervision Sit to supine: Supervision Scooting: Supervision Pt able to use the modified log roll technique to perform bed mobility with supervision. Heavy use of bed rail required and HOB elevated > 45 degrees. Pt denied dizziness. Transfers/Mobility Sit to stand: Contact Guard Stand to sit: Contact Guard Standing balance: Contact Guard Functional mobility: Min Assist Pt able to elevate from the EOB to the FWW with CGA but demo'd poor hand placement with austin hands on the walker. Pt walked a short distance in the ramirez using the FWW. She was relatively unsteady, requiring Min A for safety. Pt walked a short distance into the hallway but required a standing rest break d/t pain and fatigue. Spo2 measured at 77% with pt not symptomatic. O2 increased with RN aware. Pt returned to EOB with additional time to recover to 90% Spo2. Device(s) used: front wheeled walker Plan Continue acute OT per plan of care. Safety/Education Safety Safety Devices in place: All fall risk precautions in place, call light within reach, left in bed, gait belt, patient at risk for falls, and nurse notified Restraints: N/A Education Education Given To: patient Education Provided: OT Role, Plan of Care, and Discharge Recommendations Education Method: Verbal Barriers to Learning: None Education Outcome: Verbalized Understanding AM-PAC AM-PAC Inpatient Daily Activity Raw Score: 19 ADL Inpatient CMS G-Code Modifier: CK Goals Patient Stated Goal: to go to rehab. Encounter Problems Encounter Problems (Active) Balance Patient will tolerate standing for 3 minutes mod I with fww to allow increased independence in ADLs. (Progressing) Start: 02/14/23 Expected End: 02/28/23 Dressing Upper Extremities Patient will complete upper body ADLs mod I. (Not Addressed) Start: 02/14/23 Expected End: 02/28/23 Dressings Lower Extremities Patient will complete lower body ADLs mod I. (Not Addressed) Start: 02/14/23 Expected End: 02/28/23 Mobility Patient will demonstrate functional ambulation mod I with fww. (Progressing) Start: 02/14/23 Expected End: 02/28/23 Toileting Patient will complete toileting tasks at standard toilet with modified independence. (Not Addressed) Start: 02/14/23 Expected End: 02/28/23 Transfers Patient will complete functional transfer with rolling walker with modified independence in order to prepare for ambulation. (Progressing) Start: 02/14/23 Expected End: 02/28/23 Therapy Time Individual Co-treatment Time In 1241 Time Out 1253 Minutes 12 Roopa More OT * Earlene Echavarria MD - 02/16/2023 8:42 AM EST Images from the original note were not included. [phone]: Please page me ([phone]) for patient care issues. [phone]: Please page [facility] Hospitalist for any issues. Subjective: Admit Date: 02/13/2023 PCP: HERMINIA CASE MD Room#: 232-08/232-08 Norma Deluac is a 67 y.o. female who presents with Lumbar compression fracture, closed, initial encounter ([facility]) Interval History: Claims that back pain is better, still refusing MRI because of claustrophobia andalso refuses even with sedation Bone scan pending on 02/17 tentative planning to go to SNF , PT recommends SNF Denies chest pain, sob, abdominal pain, nausea, vomiting, diarrhea, constipation,fevers, or chills. Adult diet Regular 24HR INTAKE/OUTPUT: Intake/Output Summary (Last 24 hours) at 02/16/2023 0842 Last data filed at 02/15/2023 1500 Gross per 24 hour Intake 300 ml Output -- Net 300 ml LABS: CBC: Recent Labs 02/13/23211302/15/23455 WBC 11.1* 5.2 RBC 3.86 3.36* HGB 11.9 10.6* HCT 36.2 31.2* MCV 93.9 92.9 RDW 13.8 13.8 PLT 212 163 BMP: Recent Labs 02/13/23211302/15/2345502/16/23 0343 NA 137 138 139 K 3.7 3.2* 3.3* CL 98 104 105 CO2 32* 28 32* BUN 13 15 16 CREATININE 0.50* 0.52 0.58 GLUCOSE 96 91 117* CALCIUM 9.1 8.4 8.3* ANIONGAP 7 6 2* LIVER PROFILE:No results for input(s): "AST", "ALT", "BILITOT", "ALKPHOS", "PROT" in the last 72 hours. No lab exists for component: "LABALBU" PT/INR: No results for input(s): "PROTIME", "INR" in the last 72 hours. CARDIAC ENZYMES: No results for input(s): "TROPONINI" in the last 72 hours. Procalcitonin: No results found for: "PROCAL" Objective: Vitals: BP 121/72 (BP Location: Left arm, Patient Position: Lying) Pulse 88 Temp 36.6 C (97.9 F) (Temporal) Resp 16 Ht 5' 5" (1.651 m) Wt 135 lb (61.2 kg) SpO2 95% BMI 22.47 kg/m Pulse Ox: SpO2 Av % Min: 95 % Max: 95 % Supplemental O2: O2 Flow Rate (L/min): 3 L/min 02/16/2023 General appearance: Appears to be in mild distress and cooperative to exam HEENT: Eyes: No scleral icterus Oral: Tongue is semi-moist Cardiovascular: S1/S2 heard, RRR Respiratory: Diminished breath sounds bilaterally and no rhonchi or wheezing abdomen: Soft, non-tender, non-distended bowel sounds positive Musculoskeletal: Decreased range of motion of lumbar spine and pain on palpation from the thoracolumbar to the lumbosacral area and thoracic kyphosis is seen Neurologic: No acute motor or sensory deficits are noticed, no facial droop skin: No visible rashes or lesions. Medications: aspirin, 81 mg, Oral, Daily atorvastatin, 40 mg, Oral, Nightly buPROPion XL, 150 mg, Oral, Daily calcitonin, 50 Units, IntraMUSCular, Daily clonazePAM, 0.5 mg, Oral, Nightly DULoxetine, 60 mg, Oral, Daily enoxaparin, 40 mg, SubCUTAneous, Daily gabapentin, 600 mg, Oral, Daily ipratropium-albuterol, 3 mL, Nebulization, TID montelukast, 10 mg, Oral, Nightly QUEtiapine, 200 mg, Oral, Nightly tiotropium, 1 capsule, Inhalation, Daily Assessment Fall-check vitamin D level New compression deformities in L2 and L4. With chronic compression at L3, acute thoracolumbar fracture-no acute surgical intervention, Ortho following and ordered a bone scan which is scheduled for 02/17 Left shoulder pain -no acute surgery Subacute left clavicular fracture w healing from Oct 2022 COPD Chronic problems Hyperlipidemia Anxiety w claustrophobia' Osteoporosis with prior fractures Plan Add Breo and montelukast and Spiriva from her home meds Also added bupropion and Cymbalta Awaiting bone scan replace potassium Diet Adult diet Regular DVT Prophylaxis [x] Lovenox, [] Heparin, [] SCDs, [] Ambulation [] Already on Anticoagulation GI Prophylaxis [] PPI, [] H2 Brigid, [] Carafate, [] Diet/Tube Feeds Code Status Full Code Disposition Patient requires continued admission due to fall and lumbar spine fracture , waiting for brace and SNF certification MDM [] Low, [x] Moderate,[] High Patient's risk as above Total time spent (which include face to face and non face to face encounters) : minutes Toxic drug monitoring/narrow therapeutic index drug monitoring : # Drug name : Lovenox # Route administered : Subcutaneous # Method of monitoring : Daily Extended Emergency Contact Information Primary Emergency Contact: RaudelNacho sinclairi Address: [address] [place] [address] [place] [address] [facility] Mobile Relation: Daughter Secondary Emergency Contact: Jace Deluca Mobile Relation: Son Advance Directive: Full Code Discharge planning: TBD Earlene Echavarria MD Division of Hospitalist Medicine Inpatient Medical Services/[facility] * Betsey Gresham MD - 02/16/2023 7:51 AM EST H: Recent Labs 02/15/23 0456 HGB 10.6* WBC 5.2 VS: Blood pressure 121/72, pulse 88, temperature 36.6 C (97.9 F), temperature source Temporal, resp. rate 16, height 1.651 m (5' 5"), weight 61.2 kg (135 lb), SpO2 95%. Sleeping, arouses easily No events overnight. Ambulated yesterday w/ PT PE: Mobilizes in bed without issue. Mild spine pain at TL jct. NVI distal Xray: pnd IMP: Age-indeteriminant fx's L2, L4 PLAN: Patient can't get MRI due to claustrophibia Bone scan scheduled for tomorrow. Brace TBD based on findins on scan. Continue to mobilize. Lab Results Component Value Date WBC 5.2 02/15/2023 HGB 10.6 (L) 02/15/2023 HCT 31.2 (L) 02/15/2023 PLT 163 02/15/2023 * Earlene Echavarria MD - 02/15/2023 2:46 PM EST Images from the original note were not included. [phone]: Please page me ([phone]) for patient care issues. [phone]: Please page [facility] Hospitalist for any issues. Subjective: Admit Date: 02/13/2023 PCP: HERMINIA CASE MD Room#: 232-08/232-08 Norma Deluca is a 67 y.o. female who presents with Lumbar compression fracture, closed, initial encounter ([facility]) Interval History: Claims that back pain is better, still refusing MRI because of claustrophobia andalso refuses even with sedation Awaiting for brace , and also for SNF precertification PT recommends SNF Denies chest pain, sob, abdominal pain, nausea, vomiting, diarrhea, constipation,fevers, or chills. Adult diet Regular 24HR INTAKE/OUTPUT: No intake or output data in the 24 hours ending 02/15/23 1447 LABS: CBC: Recent Labs 02/13/23211302/15/23 0456 WBC 11.1* 5.2 RBC 3.86 3.36* HGB 11.9 10.6* HCT 36.2 31.2* MCV 93.9 92.9 RDW 13.8 13.8 PLT 212 163 BMP: Recent Labs 02/13/23211302/15/236 NA 137 138 K 3.7 3.2* CL 98 104 CO2 32* 28 BUN 13 15 CREATININE 0.50* 0.52 GLUCOSE 96 91 CALCIUM 9.1 8.4 ANIONGAP 7 6 LIVER PROFILE:No results for input(s): "AST", "ALT", "BILITOT", "ALKPHOS", "PROT" in the last 72 hours. No lab exists for component: "LABALBU" PT/INR: No results for input(s): "PROTIME", "INR" in the last 72 hours. CARDIAC ENZYMES: No results for input(s): "TROPONINI" in the last 72 hours. Procalcitonin: No results found for: "PROCAL" Objective: Vitals: BP 138/67 (BP Location: Right arm, Patient Position: Lying) Pulse 82 Temp 36.4 C (97.5 F) (Temporal) Resp 20 Ht 5' 5" (1.651 m) Wt 135 lb (61.2 kg) SpO2 95% BMI 22.47 kg/m Pulse Ox: SpO2 Av.5 % Min: 94 % Max: 95 % Supplemental O2: O2 Flow Rate (L/min): 3 L/min 02/15/2023 General appearance: Appears to be in mild distress and cooperative to exam HEENT: Eyes: No scleral icterus Oral: Tongue is semi-moist Cardiovascular: S1/S2 heard, RRR Respiratory: Diminished breath sounds bilaterally and no rhonchi or wheezing abdomen: Soft, non-tender, non-distended bowel sounds positive Musculoskeletal: Decreased range of motion of lumbar spine and pain on palpation from the thoracolumbar to the lumbosacral area and thoracic kyphosis is seen Neurologic: No acute motor or sensory deficits are noticed, no facial droop skin: No visible rashes or lesions. Medications: aspirin, 81 mg, Oral, Daily atorvastatin, 40 mg, Oral, Nightly buPROPion XL, 150 mg, Oral, Daily calcitonin, 50 Units, IntraMUSCular, Daily DULoxetine, 60 mg, Oral, Daily enoxaparin, 40 mg, SubCUTAneous, Daily QUEtiapine, 200 mg, Oral, Nightly Assessment Fall-check vitamin D level New compression deformities in L2 and L4. With chronic compression at L3, acute thoracolumbar fracture-no acute surgical intervention Left shoulder pain -no acute surgery Subacute left clavicular fracture w healing from Oct 2022 Hypokalemia Chronic problems Hyperlipidemia Anxiety w claustrophobia' Osteoporosis with prior fractures Plan Check vitamin D level Awaiting SNF precertification Replace potassium Diet Adult diet Regular DVT Prophylaxis [x] Lovenox, [] Heparin, [] SCDs, [] Ambulation [] Already on Anticoagulation GI Prophylaxis [] PPI, [] H2 Brigid, [] Carafate, [] Diet/Tube Feeds Code Status Full Code Disposition Patient requires continued admission due to fall and lumbar spine fracture , waiting for brace and SNF certification MDM [] Low, [x] Moderate,[] High Patient's risk as above Total time spent (which include face to face and non face to face encounters) : minutes Toxic drug monitoring/narrow therapeutic index drug monitoring : # Drug name : Lovenox # Route administered : Subcutaneous # Method of monitoring : Daily Extended Emergency Contact Information Primary Emergency Contact: Karishma Deluca Address: [address] [place] [address] [place] [address] [place] Mobile Relation: Daughter Secondary Emergency Contact: Jace Deluca Mobile Relation: Son Advance Directive: Full Code Discharge planning: TBD Earlene Echavarria MD Division of Hospitalist Medicine Inpatient Medical Services/[facility] * Marian Mendosa, PT - 02/15/2023 11:13 AM EST Images from the original note were not included. PHYSICAL THERAPY [facility] Treatment Note Name/MRN: Gonzalo Deluca ([id number]) Date of : 1955 Age: 67 y.o. Room/Bed: 232-08/232-08 A Visit #: 1 out of 7 visits Discharge Recommendation: SNF and Continue to assess pending progress Equipment Needed: no, patient owns a cane and FWW Prior Level of Function ADL Assistance: Independent Ambulation Assistance: Independent Device(s) used: front wheeled walker Transfer Assistance: Independent Assessment Pt continues to present with decreased functional independence. Pt with poor endurance during ambulation with use of FWW. Pt limited by acute back pain and requires education for postioning in bed for pain control. Pt desat to 80% after ambulating with 3L and required increase to 6L to recover to 92%. At end of session patient long sitting in bed with 3.5L and 90%. Pt expected to continue to benefit from skilled PT to increase functional endurance and safety. Continue to rec SNF. Subjective Pt seated EOB upon arrival with O2 NC sitting on bed next to her. O2 85% on RA and recovered with 3L. Pain: pain in low back; did not rate Medical Precautions: No active isolations Proper PPE donned/doffed in accordance with facility standards. Fall Risk: Webb Fall Risk Score: 85 (High Risk) Precautions/Restrictions: Right LE Weight Bearing: Weight Bearing As Tolerated Left LE Weight Bearing: Weight Bearing As Tolerated Right UE Weight Bearing: Weight Bearing As Tolerated Left UE Weight Bearing: Weight Bearing As Tolerated Overall Cognitive Status: WFL Overall Orientation Status: Oriented x4 Family/Caregiver Present: none Objective Ambulation Ambulation 1 Assistive device(s) used: front wheeled walker Assist level: Min Assist Distance (ft): ~30'x1 Quality of gait: reciprocal stepping, slow lauren Pt with rapid fatigue and rushed to return to EOB. Pt spo2 desat to 80% after ambulating and increased to 90% with 6L and then titrated to 3.5L at rest. Pt educated on energy conservation and use of pursed lip breathing with good carryover. Transfers/Mobility Sit to stand: Contact Guard Stand to sit: Contact Guard From EOB to FWW with cues for hand placement. Device(s) used: front wheeled walker Bed Mobility Sit to supine: Min Assist Scooting: Min Assist Cues for positioning for pain control in low back. Increased SOB after returning to bed that improved with time. Denies dizziness. Plan Continue acute PT per plan of care. Safety/Education Safety Safety Devices in place: All fall risk precautions in place, call light within reach, left in bed, gait belt, patient at risk for falls, and nurse notified Restraints: No Education Education Given To: patient Education Provided: PT Role, PT Goals, Gait Training, Plan of Care, Precautions, Transfer Training,Energy Conservation, Equipment, and Discharge Recommendations Education Method: Verbal and Demonstration Barriers to Learning: None Education Outcome: Verbalized Understanding, Demonstrated Understanding, and Continued Education Needed Outcome Measures AM-PAC AM-PAC Inpatient Mobility Raw Score (No Stairs) : 15 Goals Patient Stated Goal: Patient states she doesn't want to fall anymore. Encounter Problems Encounter Problems (Active) Balance Patient will maintain dynamic standing balance for 5 minutes with modified independence in order todemonstrate decreased risk of falling. (Progressing) Start: 02/14/23 Expected End: 02/22/23 Exercise Patient will complete lower extremity exercises for 1-2 sets / 10 reps in order to improve strengthand activity tolerance for mobility. (Not Addressed) Start: 02/14/23 Expected End: 02/22/23 Mobility Patient will ambulate 100 feet with modified independence and rolling walker in order to improve safety and independence with mobility. (Progressing) Start: 02/14/23 Expected End: 02/22/23 Patient will ascend and descend 12 stairs with least restrictive device and supervision in order tosafely negotiate home. (Not Addressed) Start: 02/14/23 Expected End: 02/22/23 Pain - Adult Transfers Patient will perform bed mobility with modified independence in order to improve independence and prepare for out of bed mobility. (Progressing) Start: 02/14/23 Expected End: 02/22/23 Patient will complete functional transfers with rolling walker with modified independence in order to prepare for ambulation. (Progressing) Start: 02/14/23 Expected End: 02/22/23 Therapy Time Individual Co-treatment Time In 1039 Time Out 1056 Minutes 17 Timed Code Treatment Minutes: 15 Minutes (1 Gt) Marian Mendosa PT * Josie Isaac - 02/15/2023 7:55 AM EST Nutrition rescreen complete. Pt assigned a level one for nutrition care. * Btesey Gresham MD - 02/15/2023 7:22 AM EST H: Recent Labs 02/15/23 0456 HGB 10.6* WBC 5.2 VS: Blood pressure (!) 141/79, pulse 83, temperature 36.3 C (97.3 F), temperature source Temporal, resp. rate 18, height 1.651 m (5' 5"), weight 61.2 kg (135 lb), SpO2 94%. No overnight issues. Sleeping, arouses easily. Complains of "soreness." Mobilized some yesterday. PE: NVI BLE. Lying supine, comfortable. Xray: pnd IMP: Lumbar fractures. PLAN: Continue to mobilize. Unable to get MRI even w/ sedation due to claustrophobia. Waiting to get BS (.) Lab Results Component Value Date WBC 5.2 02/15/2023 HGB 10.6 (L) 02/15/2023 HCT 31.2 (L) 02/15/2023 PLT 163 02/15/2023 * Earlene Echavarria MD - 02/14/2023 10:14 AM EST Images from the original note were not included. [phone]: Please page me ([phone]) for patient care issues. [phone]: Please page [facility] Hospitalist for any issues. Subjective: Admit Date: 02/13/2023 PCP: HERMINIA CASE MD Room#: 232-08/232-08 Norma Deluca is a 67 y.o. female who presents with Lumbar compression fracture, closed, initial encounter ([facility]) Interval History: No overnight issues. She is refusing MRI because of claustrophobia Refuses MRI, reviewed ortho consult complains of back pain PT recommends SNF Denies chest pain, sob, abdominal pain, nausea, vomiting, diarrhea, constipation,fevers, or chills. Adult diet Regular 24HR INTAKE/OUTPUT: Intake/Output Summary (Last 24 hours) at 02/14/2023 1014 Last data filed at 02/13/2023 2203 Gross per 24 hour Intake 500 ml Output -- Net 500 ml LABS: CBC: Recent Labs 02/13/232113 WBC 11.1* RBC 3.86 HGB 11.9 HCT 36.2 MCV 93.9 RDW 13.8 PLT 212 BMP: Recent Labs 02/13/232113 NA 137 K 3.7 CL 98 CO2 32* BUN 13 CREATININE 0.50* GLUCOSE 96 CALCIUM 9.1 ANIONGAP 7 LIVER PROFILE:No results for input(s): "AST", "ALT", "BILITOT", "ALKPHOS", "PROT" in the last 72 hours. No lab exists for component: "LABALBU" PT/INR: No results for input(s): "PROTIME", "INR" in the last 72 hours. CARDIAC ENZYMES: No results for input(s): "TROPONINI" in the last 72 hours. Procalcitonin: No results found for: "PROCAL" Objective: Vitals: BP (!) 137/94 Pulse 83 Temp 36.8 C (98.2 F) (Oral) Resp 18 Ht 5' 5" (1.651 m) Wt 135 lb (61.2 kg) SpO2 95% BMI 22.47 kg/m Pulse Ox: SpO2 Av.8 % Min: 95 % Max: 98 % Supplemental O2: O2 Flow Rate (L/min): 3 L/min 02/14/2023 General appearance: No apparent distress, appears stated age, HEENT: Eyes: No scleral icterus Oral: Tongue is semi-moist Cardiovascular: S1/S2 heard, RRR Respiratory: Diminished breath sounds bilaterally and no rhonchi or wheezing abdomen: Soft, non-tender, non-distended bowel sounds positive Musculoskeletal: Decreased range of motion of lumbar spine and pain on palpation from the thoracolumbar to the lumbosacral area and thoracic kyphosis is seen Neurologic: No acute motor or sensory deficits are noticed, no facial droop skin: No visible rashes or lesions. Medications: aspirin, 81 mg, Oral, Daily atorvastatin, 40 mg, Oral, Nightly buPROPion XL, 150 mg, Oral, Daily calcitonin, 50 Units, IntraMUSCular, Daily DULoxetine, 60 mg, Oral, Daily enoxaparin, 40 mg, SubCUTAneous, Daily QUEtiapine, 200 mg, Oral, Nightly Assessment Fall New compression deformities in L2 and L4. With chronic compression at L3, acute thoracolumbar fracture Left shoulder pain Subacute left clavicular fracture w healing from Oct 2022 Chronic problems Hyperlipidemia Anxiety w claustrophobia' Osteoporosis with prior fractures Plan 67-year-old female patient is admitted with falls and low back pain and is diagnosed with compression deformities from L2-L4 Spine service is consulted and they recommend conservative treatment with physical therapy since patient refuses MRI Physical therapy recommending [facility] facility and possible discharge planning to SNF in 1 to 2 days -am labs, replace lytes prn -increase activity Diet Adult diet Regular DVT Prophylaxis [x] Lovenox, [] Heparin, [] SCDs, [] Ambulation [] Already on Anticoagulation GI Prophylaxis [] PPI, [] H2 Brigid, [] Carafate, [] Diet/Tube Feeds Code Status Full Code Disposition Patient requires continued admission due to fall and lumbar spine fracture MDM [] Low, [x] Moderate,[] High Patient's risk as above Total time spent (which include face to face and non face to face encounters) : minutes Toxic drug monitoring/narrow therapeutic index drug monitoring : # Drug name : Lovenox # Route administered : Subcutaneous # Method of monitoring : Daily Extended Emergency Contact Information Primary Emergency Contact: Karishma Deluca Address: [address] [place] [address] [place] [address] [facility] Mobile Relation: Daughter Secondary Emergency Contact: Jace Deluca Mobile Relation: Son Advance Directive: Full Code Discharge planning: TBD Earlene Echavarria MD Division of Hospitalist Medicine Inpatient Medical Services/[facility] * Catalina Rojo, OT - 02/14/2023 10:11 AM EST Images from the original note were not included. OCCUPATIONAL THERAPY [facility] Initial Evaluation Name/MRN: Gonzalo Deluca ([id number]) Evaluation Date: 02/14/2023 Date of : 1955 Admission Date: 02/13/2023 6:59 PM Age: 67 y.o. Room[facility]: [facility] Discharge Recommendation: SNF and Continue to assess pending progress Equipment Needed: TBD at next level of care Assessment IMPRESSION: Pt admitted with fall resulting in back pain. Ortho stated: 1. L2 and L4 compression deformities, new from 2020, post fall 201924 January 2023. 2. L3 compression deformity without interval change from 2020 3. Thoracic kyphosis 4. Thoracic pain 5. Lumbar degenerative disc disease 6. Subacute left clavicle fracture with progressive healing from October 2022 7. Status post percutaneous screw fixation left intertrochanteric hip fracture Prior to admission, pt was independent in ADLs, functional transfers and mobility with fww. Pt now requires SBA-min A for LB ADLs, and CGA for functional transfers and min A for short mobility at fww. Pt is limited by impaired balance and endurance. Pt should benefit from skilled OT services in order to increase safety and independence in occupational participation. Performance Deficits /Impairments: Increased Pain, Decreased Functional Mobility, Decreased ADL status, Decreased Strength, Decreased Safety Awareness, Decreased Endurance, Decreased Balance, and Decreased High Level IADLs Prognosis: Good Decision Making: Medium Complexity Subjective Pt pleasant and cooperative. Per RN, ok for pt to participate in OT eval. Co-eval with PT. 3L O2 intact, SpO2 ~85-92%. Pain: 0-10 pain scale: 7/10 Location: back pain Past Medical History: Past Medical History: Diagnosis Date Abnormal stress test Allergic rhinitis Arthritis Asthma Bronchitis Cancer (CMS/HCC) (HCC) skin Cervical cancer (CMS/HCC) ([facility]) Chest pain COPD (chronic obstructive pulmonary disease) ([facility]) USE OXYGEN 3 L AT NIGHT DDD (degenerative disc disease), cervical Defect, retina, with detachment right DJD (degenerative joint disease), lumbar Emphysema lung ([facility]) Former smoker Hematuria SCHEDULED FOR THE PROCEDURE /SURGERY ON 02/11/2017 Hypokalemia Lung nodules Osteoporosis Palpitations Pneumonia Recurrent major depression ([facility]) Sciatica Thoracic compression fracture ([facility]) Vitamin D deficiency Past Surgical History: Past Surgical History: Procedure Laterality Date CYSTOSCOPY 01/12/2017 OFFICE PROCEDURE CYSTOSCOPY 02/11/2017 C&P bladder biopsy EYE SURGERY detached retina 1994 HYSTERECTOMY 11/06/2019 ABDOMINAL RADICAL HYSTERECTOMY WITH BSO AND PELVIC LYMPH; DR. ZIYAD FISH OTHER SURGICAL HISTORY Left 12/19/2019 Med Port POWER Regular Size OTHER SURGICAL HISTORY Left 11/07/2022 Percutaneous skeltal fixation femoral fracture TUBAL LIGATION 1992 Admission Diagnosis: Patient Active Problem List Diagnosis Date Noted Lumbar compression fracture, closed, initial encounter ([facility]) 02/13/2023 Nondisplaced fracture of neck of left femur ([facility]) 11/06/2022 Other specified complication of vascular prosthetic devices, implants and grafts, initial encounter([facility]) 08/06/2021 Acute exacerbation of chronic obstructive pulmonary disease ([facility]) 04/12/2018 Poor venous access 12/19/2019 H/O: CVA (cerebrovascular accident) 12/14/2019 Malignant neoplasm of exocervix ([facility]) 11/07/2019 S/P hysterectomy 11/07/2019 PNA (pneumonia) 08/02/2019 Leukocytosis 04/13/2018 Moderate malnutrition ([facility]) ([facility]) 04/13/2018 Shortness of breath 04/13/2018 DDD (degenerative disc disease), cervical 04/12/2018 Recurrent major depression ([facility]) 04/12/2018 Chronic back pain 04/10/2017 COPD (chronic obstructive pulmonary disease) ([facility]) 04/10/2017 Pulmonary nodule 04/10/2017 Sciatica 04/10/2017 Supplemental oxygen dependent 04/10/2017 Former smoker 04/10/2017 Medical Precautions: No active isolations Proper PPE donned/doffed in accordance with facility standards. Fall Risk: Webb Fall Risk Score: 40 (Medium Risk) Precautions/Restrictions: Right LE Weight Bearing: Weight Bearing As Tolerated Left LE Weight Bearing: Weight Bearing As Tolerated Right UE Weight Bearing: Weight Bearing As Tolerated Left UE Weight Bearing: Weight Bearing As Tolerated Family/Caregiver Present: none Overall Cognitive Status: WFL Overall Orientation Status: Oriented x4 Social/Functional History Patient admitted from home. Lives With: Daughter Type of Home: single family home Home Layout: Two Level Home, 1/2 Bath on Main Floor, and Bed/Bed Upstairs Home Access: Stairs to Enter without Rails (# of stairs: 1) Bathroom Shower/Tub: Tub/Shower Combo, Shower Chair with Back, and Grab Bars Toilet: Standard Home Equipment: front wheeled walker, cane, and oxygen Homemaking Responsibilities: Independent Receives Help From: Family Active Linotyper: No Prior Level of Function ADL Assistance: Independent Ambulation Assistance: Independent Device(s) used: front wheeled walker Transfer Assistance: Independent Objective ADLs Pt with increased pain as well as impaired balance, strength and endurance, requiring increased assist for ADLs. Upper Extremity Assessment AROM: Impaired: generally decreased, functional PROM: Impaired: generally decreased, functional Strength: Exceptions: generally decreased, functional Vision: no visual deficits Hearing: normal Bed Mobility NT seated at EOB pre/post session. Transfers/Functional Mobility Sit to stand: Contact Guard Stand to sit: Contact Guard Functional mobility: Min Assist Pt required VC for safe hand placement when completing transfers as pt attempted to hold onto fww during transfers, pt required CGA to complete. Pt ambulated a short distance in room/ramirez with min A d/t instability, pt with increased SOB with SpO2 desaturating to ~-85% requiring VC for pursed lip breathing. SpO2 >90% within ~1 min. Device(s) used: front wheeled walker AM-PAC AM-PAC Inpatient Daily Activity Raw Score: 19 ADL Inpatient CMS G-Code Modifier: CK Plan Pt would benefit from skilled acute OT services to address Strengthening, Balance Training, Functional Mobility Training, Endurance Training, Pain Management, Safety Education and Training, Patient/Caregiver Training, Positioning, and Self-Care/ADL Training. Frequency: 7 visits during current hospital admission or until additional recommendations are made Barriers: Decreased endurance and SpO2 desaturation Prognosis: good Safety/Education Safety Safety Devices in place: All fall risk precautions in place, call light within reach, left in bed, gait belt, patient at risk for falls, nurse notified, and no alarms engaged upon entry Restraints: No Education Education Given To: patient Education Provided: OT Role, Plan of Care, ADL Adaptive Strategies, Transfer Training, Equipment, Discharge Recommendations, Benefits of Increasing Activity, and Breathing Techniques Education Method: Verbal Barriers to Learning: None Education Outcome: Verbalized Understanding, Demonstrated Understanding, and Continued Education Needed Goals Patient Stated Goal: to go to rehab. Encounter Problems Encounter Problems (Active) Balance Patient will tolerate standing for 3 minutes mod I with fww to allow increased independence in ADLs. Start: 02/14/23 Expected End: 02/28/23 Dressing Upper Extremities Patient will complete upper body ADLs mod I. Start: 02/14/23 Expected End: 02/28/23 Dressings Lower Extremities Patient will complete lower body ADLs mod I. Start: 02/14/23 Expected End: 02/28/23 Mobility Patient will demonstrate functional ambulation mod I with fww. Start: 02/14/23 Expected End: 02/28/23 Toileting Patient will complete toileting tasks at standard toilet with modified independence. Start: 02/14/23 Expected End: 02/28/23 Transfers Patient will complete functional transfer with rolling walker with modified independence in order to prepare for ambulation. Start: 02/14/23 Expected End: 02/28/23 Therapy Time Individual Co-treatment Time In 0834 Time Out 0848 Minutes 14 Catalina Rojo OT Patient's Occupational Therapy Plan of Care supervision is transferred to a [facility] Occupational Therapist. Goals and/or treatment plan was established in collaboration with patient/family/other representatives. * Jennifer Esparza PT - 02/14/2023 8:36 AM EST Images from the original note were not included. PHYSICAL THERAPY [facility] Initial Evaluation Name/MRN: Gonzalo Deluca ([id number]) Evaluation Date: 02/14/2023 Date of : 1955 Admission Date: 02/13/2023 6:59 PM Age: 67 y.o. Room/Bed: [facility]08 A Discharge Recommendation: SNF and Continue to assess pending progress Equipment Needed: no, patient owns a cane and FWW Assessment IMPRESSION: Pt presents with decreased functional mobility, decreased strength, decreased safety awareness, decreased endurance and impaired balance. Pt has decreased standing balance, poor activity tolerance, decreased safety awareness and weakness requiring physical assist of 1 person in order tosafely complete minimal OOB mobility placing her at a high risk of falling. Pt could benefit from skilled PT in order to address her decreased functional mobility, strength, balance and safety. Pt has medical history as listed below that that contributes to her clinical presentation. At baseline patient is functionally independent with a FWW. Currently patient is unsafe to return home secondary to her increased need for assist and fall risks with mobility. Diagnosis: Pt admitted with fall and back pain. Per ortho patient presents as an acute thoracolumbar fracture. No restrictions per ortho MD. Prognosis: good Performance Deficits /Impairments: Increased Pain, Decreased Functional Mobility, Decreased Strength, Decreased Safety Awareness, Decreased Endurance, Decreased Balance, and Decreased Posture Decision Making: Medium Complexity Subjective Patient pleasant agreeable to therapy session this date. Co-eval with OT. Observation: 3L O2, L LE leg length discrepancy (does not have her shoe yet) Vitals SpO2 decreased to 85% on 3L O2 with mobility, improved to >92% at rest pre/post mobility. Pain: 0-10 pain scale: 7/10 - worse with mobility, did not re-rate Location: lower back Past Medical History: Past Medical History: Diagnosis Date Abnormal stress test Allergic rhinitis Arthritis Asthma Bronchitis Cancer (CMS/HCC) ([facility]) skin Cervical cancer (CMS/HCC) ([facility]) Chest pain COPD (chronic obstructive pulmonary disease) ([facility]) USE OXYGEN 3 L AT NIGHT DDD (degenerative disc disease), cervical Defect, retina, with detachment right DJD (degenerative joint disease), lumbar Emphysema lung ([facility]) Former smoker Hematuria SCHEDULED FOR THE PROCEDURE /SURGERY ON 02/11/2017 Hypokalemia Lung nodules Osteoporosis Palpitations Pneumonia Recurrent major depression ([facility]) Sciatica Thoracic compression fracture ([facility]) Vitamin D deficiency Past Surgical History: Past Surgical History: Procedure Laterality Date CYSTOSCOPY 01/12/2017 OFFICE PROCEDURE CYSTOSCOPY 02/11/2017 C&P bladder biopsy EYE SURGERY detached retina 1994 HYSTERECTOMY 11/06/2019 ABDOMINAL RADICAL HYSTERECTOMY WITH BSO AND PELVIC LYMPH; DR. ZIYAD FISH OTHER SURGICAL HISTORY Left 12/19/2019 Med Port POWER Regular Size OTHER SURGICAL HISTORY Left 11/07/2022 Percutaneous skeltal fixation femoral fracture TUBAL LIGATION 1992 Admission Diagnosis: Patient Active Problem List Diagnosis Date Noted Lumbar compression fracture, closed, initial encounter ([facility]) 02/13/2023 Nondisplaced fracture of neck of left femur ([facility]) 11/06/2022 Other specified complication of vascular prosthetic devices, implants and grafts, initial encounter([facility]) 08/06/2021 Acute exacerbation of chronic obstructive pulmonary disease ([facility]) 04/12/2018 Poor venous access 12/19/2019 H/O: CVA (cerebrovascular accident) 12/14/2019 Malignant neoplasm of exocervix ([facility]) 11/07/2019 S/P hysterectomy 11/07/2019 PNA (pneumonia) 08/02/2019 Leukocytosis 04/13/2018 Moderate malnutrition ([facility]) ([facility]) 04/13/2018 Shortness of breath 04/13/2018 DDD (degenerative disc disease), cervical 04/12/2018 Recurrent major depression ([facility]) 04/12/2018 Chronic back pain 04/10/2017 COPD (chronic obstructive pulmonary disease) ([facility]) 04/10/2017 Pulmonary nodule 04/10/2017 Sciatica 04/10/2017 Supplemental oxygen dependent 04/10/2017 Former smoker 04/10/2017 Medical Precautions: No active isolations Proper PPE donned/doffed in accordance with facility standards. Fall Risk: Webb Fall Risk Score: 85 (Medium Risk) Precautions/Restrictions: Right LE Weight Bearing: Weight Bearing As Tolerated Left LE Weight Bearing: Weight Bearing As Tolerated Right UE Weight Bearing: Weight Bearing As Tolerated Left UE Weight Bearing: Weight Bearing As Tolerated Family/Caregiver Present: none Overall Cognitive Status: WFL Overall Orientation Status: Oriented x4 Vision: wears glasses at all times and and are being used during the eval Hearing: normal Social/Functional History Patient admitted from home. Lives With: Daughter Type of Home: single family home Home Layout: Two Level Home, 1/2 Bath on Main Floor, and Bed/Bed Upstairs Home Access: Stairs to Enter without Rails (# of stairs: 1) Bathroom Shower/Tub: Tub/Shower Combo, Shower Chair with Back, and Grab Bars Toilet: Standard Home Equipment: front wheeled walker, cane, and oxygen Homemaking Responsibilities: Independent Receives Help From: Family Active Linotyper: No Prior Level of Function ADL Assistance: Independent Ambulation Assistance: Independent Device(s) used: front wheeled walker Transfer Assistance: Independent Objective Lower Extremity Assessment AROM: WFL Strength: Pt demonstrates >3/5 with mobility, generalized weakness observed throughout mobility Bed Mobility: NT patient sitting EOB pre/post session per patient preference. Transfers Sit to stand: Contact Guard, to FWW from EOB with cues for hand placement Stand to sit: Contact Guard Denies dizziness on initial stance. No true LOB noted with UE support on initial stance. Ambulation Ambulation 1 Assistive device(s) used: front wheeled walker Assist level: Min Assist Distance (ft): 20 ft x 1 Quality of gait: Pt demonstrates uneven reciprocal stepping pattern with toe only weight acceptanceon L LE, slow lauren, flexed posture, no true LOB, instability with increased fatigue Pt requires Jeff for stability and support with increased distance. SpO2 decreases to 85% with thisdistance requiring 1 minute seated rest break and cues for pursed lip breathing to return to >91%. Pt limited by pain and fatigue placing her at a high risk of falling. Outcome Measures AM-PAC How much HELP from another person do you currently need Turning from your back to your side while in a flat bed without using bedrails?: A Little Moving from lying on your back to sitting on the side of a flat bed without using bedrails?: A Little Moving to and from a bed to a chair (including a wheelchair)?: A Little Standing up from a chair using your arms (wheelchair or bedside chair)?: A Little Walking in a hospital room?: A Little Stair climbing assessed?: No AM-PAC Inpatient Mobility Raw Score (No Stairs) : 15 Plan Pt would benefit from skilled acute PT services to address Strengthening, Balance Training, Functional Mobility Training, Endurance Training, Gait Training, Stair Training, Neuromuscular Re-EducationTraining, Pain Management, Safety Education and Training, Patient/Caregiver Training, Equipment Eval uation/Education, and Positioning. Frequency: 7 visits Barriers: Pain and Decreased endurance Safety/Education Safety Safety Devices in place: All fall risk precautions in place, call light within reach, left in bed, gait belt, patient at risk for falls, nurse notified, no alarms engaged upon entry, and patient leftsitting EOB Restraints: N/A Education Education Given To: patient Education Provided: PT Role, PT Goals, Gait Training, Plan of Care, Transfer Training, Equipment, Fall Prevention Education, Discharge Recommendations, Benefits of Increasing Activity, and Breathing Techniques Education Method: Verbal, Demonstration, and Teach Back Barriers to Learning: None Education Outcome: Verbalized Understanding, Demonstrated Understanding, and Continued Education Needed Goals Patient Stated Goal: Patient states she doesn't want to fall anymore. Encounter Problems Encounter Problems (Active) Balance Patient will maintain dynamic standing balance for 5 minutes with modified independence in order todemonstrate decreased risk of falling. Start: 02/14/23 Expected End: 02/22/23 Exercise Patient will complete lower extremity exercises for 1-2 sets / 10 reps in order to improve strengthand activity tolerance for mobility. Start: 02/14/23 Expected End: 02/22/23 Mobility Patient will ambulate 100 feet with modified independence and rolling walker in order to improve safety and independence with mobility. Start: 02/14/23 Expected End: 02/22/23 Patient will ascend and descend 12 stairs with least restrictive device and supervision in order tosafely negotiate home. Start: 02/14/23 Expected End: 02/22/23 Transfers Patient will perform bed mobility with modified independence in order to improve independence and prepare for out of bed mobility. Start: 02/14/23 Expected End: 02/22/23 Patient will complete functional transfers with rolling walker with modified independence in order to prepare for ambulation. Start: 02/14/23 Expected End: 02/22/23 Therapy Time Individual Co-treatment Time In 0834 Time Out 0848 Minutes 14 Jennifer Esparza PT Patient's Physical Therapy Plan of Care supervision is transferred to a [facility] Physical Therapist. Goals and/or treatment plan was established in collaboration with patient/family/other representatives. documented in this encounterSProMedica Defiance Regional [id number] Nurse Note* ARMIN DE OLIVEIRA - 02/17/2023 6:09 PM EST Order for brace faxed to [employer] along with face sheet by [place] Emily [facility] [id number] Nurse Note* ARMIN DE OLIVEIRA - 02/17/2023 6:09 PM EST Order for brace faxed to [employer] along with face sheet by [employer] Emily documented in this encounterSProMedica Defiance Regional [id number] Note* Care Coordination - SATURNINO Garcia - 02/16/2023 1:48 PM EST S/W, transport Transport sheet placed in patient paper chart for [facility] SN[facility]. [facility] [id number] Note* Care Coordination - SATURNINO Garcia - 02/16/2023 1:48 PM EST S/W, transport Transport sheet placed in patient paper chart for [facility] SN[facility]. [facility] [id number] Note* Care Coordination - Jordana Lowe RN - 02/16/2023 11:18 AM EST Images from the original note were not included. Care Management Progress Note Remains in HICU due to lumbar fracture. Bone scan planned for 02/17. Ortho following. [facility] able to accept pt. SALAD CHEF tasked to initiate insurance auth. Await insurance approval. Insurance approval received. Attending, faustina, RN & MACHINIST OUTSIDE notified. Pt to have bone scan tomorrowas needs to be completed 3 d after acute fracture to make sure can be seen on scan. Discharge Milestones and Delays Expected Date/Time: 02/18/[address] discharge order Complete med reconciliation Case mgmt discharge readiness Clinical Stability Diagnsotic Workup Expected Discharge History Expected Date/Time Set By Reviewed At 02/18/2023 SATURNINO Garcia 02/16/2023 10:12 AM 02/18/2023 SATURNINO Garcia 02/15/2023 10:33 AM 02/16/2023 Lorenzo Orozco MD 02/14/2023 9:52 AM 02/16/2023 Lorenzo Orozco MD 02/13/2023 9:24 PM Length of Stay (Days): 3 GMLOS: No GMLOS Documented [facility] [id number] Note* Care Coordination - Jordana Lowe RN - 02/16/2023 11:18 AM EST Images from the original note were not included. Care Management Progress Note Remains in HICU due to lumbar fracture. Bone scan planned for 02/17. Ortho following. [facility] able to accept pt. SALAD CHEF tasked to initiate insurance auth. Await insurance approval. Insurance approval received. Attending, ortho, RN & MACHINIST OUTSIDE notified. Pt to have bone scan tomorrowas needs to be completed 3 d after acute fracture to make sure can be seen on scan. Discharge Milestones and Delays Expected Date/Time: 02/18/[address] discharge order Complete med reconciliation Case mgmt discharge readiness Clinical Stability Diagnsotic Workup Expected Discharge History Expected Date/Time Set By Reviewed At 02/18/2023 SATURNINO Garcia 02/16/2023 10:12 AM 02/18/2023 SATURNINO Garcia 02/15/2023 10:33 AM 02/16/2023 Lorenzo Orozco MD 02/14/2023 9:52 AM 02/16/2023 Lorenzo Orozco MD 02/13/2023 9:24 PM Length of Stay (Days): 3 GMLOS: No GMLOS Documented [facility] [id number] Note* Care Coordination - Nidia Barahona - 02/15/2023 3:09 PM EST Referral placed to [facility] via [facility] per TCC request. Await review and response regarding ability to accept. TCC notified. [id number] Note* Care Coordination - Nidia Barahona - 02/15/2023 3:09 PM EST Referral placed to [facility] via [facility] per TCC request. Await review and response regarding ability to accept. TCC notified. [place] [id number] Note* Care Coordination - Ping Lazo RN - 02/15/2023 2:44 PM EST Care Managment Initial Assessment Date: 02/15/2023 Patient Name: Gonzalo Deluca : 1955 Patient Information Source of Information: Patient Cognition/Language: WFL - Within Functional Limits Permission given to speak with patient financial sales representative/caregiver as indicated: Yes (Karishma Starksyahir dtr [phone]) Confirmation of Payer with patient/family: Yes Payer Name: [facility] Medicare [place]: No Confirmation of Primary Care Physician: Confirmed PCP Name: Herminia Case Seen in last 2 years?: Yes Primary Caregiver: Self If assistance needed, confirmed caregiver ready, willing and able to care for patient at discharge: Confirmed with: Living Arrangements Current Residence: Private Residence Number of Floors 2 Number of Entry Steps: Bed/Bath Levels: Both second floor Facility: Facility Name: Plan to Return: Lives with: Children Support Systems: Children Activities of Daily Living Ambulation: Independent Bathing/Dressing: Independent Elimination/Continence/Toileting: Independent Feeding: Independent Who Assists with Activities of Daily Living: Instrumental Activities of Daily Living Prescription Coverage: Yes [facility] Medication Management: Independent Transportation/Shopping: Independent Transportation Mode: Car Needs Assistance with Transportation at Discharge: Yes Meal Preparation: Independent Laundry/Cleaning: Independent Finances/Bill Paying: Independent Communication: Independent Types of Care Services/Equipment Utilized Care Services: Dialysis Type: NA Durable Medical Equipment: Cane, Walker, Oxygen (Continuous or prn) Oxygen Flow Rate: 2.5 to 3 liters Patient's Goal/Discharge Plan Patient expects to be discharged to: SNF Discharge Planning Actions: Continue to follow, Snf Facility referral indicated [place]: [place] choice discussed, Choice list provided (emailed to [email or web address]) Patient's Choice Rights and [employer] and Collaborative Relationships Disclosed as Indicated for Post-Acute Care: Yes Interdisciplinary Team Engagement: PT/OT Social Work Referral for: Additional Information: Patient admitted to [facility] for treatment of of Lumbar compression fracture. PT/OT recommends SNF. Spoke with patient over the phone. Explained role. Lives w/ daughter in two story home. Independentwith adls. Daughter and Son drives. +PCP, +RX cov, +DME, home oxygen. Discussed SNF. Emailed list to [email or web address]. She did inform me she was at [facility] and would be agreeable to go back there. SALAD CHEF tasked to make referral to [facility]. Did explained will need to confirm bedavailability and obtain insurance authorization. She demonstrates understanding. DCP: SNF, referral to [facility]. Other choices pending. Ping Lazo RN [facility] [id number] Note* Care Coordination - Ping Lazo RN - 02/15/2023 2:44 PM EST Care Managment Initial Assessment Date: 02/15/2023 Patient Name: Gonzalo Deluca : 1955 Patient Information Source of Information: Patient Cognition/Language: WFL - Within Functional Limits Permission given to speak with patient financial sales representative/caregiver as indicated: Yes (Karishma Deluca dtr [phone]) Confirmation of Payer with patient/family: Yes Payer Name: [facility] Medicare [place]: No Confirmation of Primary Care Physician: Confirmed PCP Name: Herminia Case Seen in last 2 years?: Yes Primary Caregiver: Self If assistance needed, confirmed caregiver ready, willing and able to care for patient at discharge: Confirmed with: Living Arrangements Current Residence: Private Residence Number of Floors 2 Number of Entry Steps: Bed/Bath Levels: Both second floor Facility: Facility Name: Plan to Return: Lives with: Children Support Systems: Children Activities of Daily Living Ambulation: Independent Bathing/Dressing: Independent Elimination/Continence/Toileting: Independent Feeding: Independent Who Assists with Activities of Daily Living: Instrumental Activities of Daily Living Prescription Coverage: Yes [facility] Medication Management: Independent Transportation/Shopping: Independent Transportation Mode: Car Needs Assistance with Transportation at Discharge: Yes Meal Preparation: Independent Laundry/Cleaning: Independent Finances/Bill Paying: Independent Communication: Independent Types of Care Services/Equipment Utilized Care Services: Dialysis Type: NA Durable Medical Equipment: Cane, Walker, Oxygen (Continuous or prn) Oxygen Flow Rate: 2.5 to 3 liters Patient's Goal/Discharge Plan Patient expects to be discharged to: SNF Discharge Planning Actions: Continue to follow, Snf Facility referral indicated [place]: [place] of choice discussed, Choice list provided (emailed to [email or web address]) Patient's Choice Rights and [employer] and Collaborative Relationships Disclosed as Indicated for Post-Acute Care: Yes Interdisciplinary Team Engagement: PT/OT Social Work Referral for: Additional Information: Patient admitted to [facility] for treatment of of Lumbar compression fracture. PT/OT recommends SNF. Spoke with patient over the phone. Explained role. Lives w/ daughter in two story home. Independentwith adls. Daughter and Son drives. +PCP, +RX cov, +DME, home oxygen. Discussed SNF. Emailed list to [email or web address]. She did inform me she was at [facility] and would be agreeable to go back there. SALAD CHEF tasked to make referral to [facility]. Did explained will need to confirm bedavailability and obtain insurance authorization. She demonstrates understanding. DCP: SNF, referral to [facility]. Other choices pending. Ping Lazo RN [facility] [id number] Emergency department Note* Joaquina Guevara RN - 02/14/2023 9:20 AM EST Report called to Jameson WHITEHEAD at this time. Joaquina Guevara RN 02/14/23 0920 [id number] Emergency department Note* Joaquina Guevara RN - 02/14/2023 9:20 AM EST Report called to [facility] at this time. Joaquina Guevara RN 02/14/23 0920 * Joaquina Guevara RN - 02/14/2023 8:27 AM EST Attempted Nurse to nurse via telephone at this time, Jameson states they will call back. Joaquina Guevara RN 02/14/23 0828 * Lorenzo Orozco MD - 02/13/2023 6:59 PM EST EMERGENCY DEPARTMENT ENCOUNTER Pt Name: Gonzalo Deluca Birthdate 1955 Date of evaluation: 02/13/2023 ED Provider: Lorenzo Orozco MD CHIEF COMPLAINT Chief Complaint Patient presents with Fall Complaint of a fall today getting off of a toilet injuring lower back and pelvis pain. Pt also states her left shoulder hurts. Denies LOC or blood thinners. Pt is alert and oriented at this time. HISTORY OF PRESENT ILLNESS (Location/Symptom, Timing/Onset, Context/Setting, Quality, Duration, Modifying Factors, Severity) Note limiting factors. I wore appropriate PPE for the entirety of this encounter. HPI Gonzalo Deluca is a 67 y.o. who presents to the emergency department chief complaint of left shoulder and lower back pain. Patient reportedly tripped and fell in her bathroom. She denies hitting her head or loss of consciousness. Denies any head or neck pain. Denies being on any blood thinners. Denies any chest pain or abdominal pain. Brought in by EMS. Reportedly on 2 L of oxygen via nasal cannula chronically. States that happened about 20 minutes prior to presentation. Nursing Notes were reviewed. REVIEW OF SYSTEMS Review of Systems Respiratory: Negative for shortness of breath. Cardiovascular: Negative for chest pain. Gastrointestinal: Negative for abdominal pain. Genitourinary: Negative for flank pain and hematuria. Musculoskeletal: Positive for back pain. Negative for neck pain. Skin: Negative for wound. Neurological: Negative for syncope and headaches. Hematological: Does not bruise/bleed easily. Pertinent positives and negatives as per HPI PAST MEDICAL HISTORY Past Medical History: Diagnosis Date Abnormal stress test Allergic rhinitis Arthritis Asthma Bronchitis Cancer (CMS/HCC) ([facility]) skin Cervical cancer ([facility]/HCC) ([facility]) Chest pain COPD (chronic obstructive pulmonary disease) ([facility]) USE OXYGEN 3 L AT NIGHT DDD (degenerative disc disease), cervical Defect, retina, with detachment right DJD (degenerative joint disease), lumbar Emphysema lung ([facility]) Former smoker Hematuria SCHEDULED FOR THE PROCEDURE /SURGERY ON 02/11/2017 Hypokalemia Lung nodules Osteoporosis Palpitations Pneumonia Recurrent major depression ([facility]) Sciatica Thoracic compression fracture ([facility]) Vitamin D deficiency SURGICAL HISTORY Past Surgical History: Procedure Laterality Date CYSTOSCOPY 01/12/2017 OFFICE PROCEDURE CYSTOSCOPY 02/11/2017 C&P bladder biopsy EYE SURGERY detached retina 1994 HYSTERECTOMY 11/06/2019 ABDOMINAL RADICAL HYSTERECTOMY WITH BSO AND PELVIC LYMPH; DR. ZIYAD FISH OTHER SURGICAL HISTORY Left 12/19/2019 Med Port POWER Regular Size OTHER SURGICAL HISTORY Left 11/07/2022 Percutaneous skeltal fixation femoral fracture TUBAL LIGATION 1992 CURRENT MEDICATIONS Previous Medications ALBUTEROL 108 (90 BASE) MCG/ACT INHALER Inhale 2 puffs every 4 hours as needed. ALENDRONATE (FOSAMAX) 70 MG TABLET Take 70 mg by mouth once a week. ASPIRIN 81 MG EC TABLET Take 81 mg by mouth. ATORVASTATIN (LIPITOR) 40 MG TABLET Take 1 tablet by mouth Nightly. BUPROPION XL (WELLBUTRIN XL) 150 MG 24 HR TABLET Take 150 mg by mouth in the morning. CALCIUM CARBONATE-CHOLECALCIFEROL (OYSTER SHELL) 250-3.125 MG-MCG TABLET Take 1 tablet by mouth. CLONAZEPAM (KLONOPIN) 0.5 MG TABLET Take 1 tablet by mouth Nightly. DIPHENHYDRAMINE (SOMINEX) 25 MG TABLET Take 25 mg by mouth. FLUTICASONE (FLONASE) 50 MCG/ACT NASAL SPRAY 2 sprays in the morning. FLUTICASONE FUROATE-VILANTEROL (BREO ELLIPTA) 200-25 MCG/ACT AEROSOL POWDER Inhale 1 puff daily. GABAPENTIN (NEURONTIN) 600 MG TABLET Take 1 tablet by mouth daily. MAGNESIUM OXIDE (MAG-OX) 400 MG TABLET 400 mg daily. MONTELUKAST (SINGULAIR) 10 MG TABLET Take 10 mg by mouth Nightly. NICOTINE (NICODERM, STEP 1) 21 MG/24HR PATCH Place 1 patch on the skin daily. Do not start before November 09, 2022. POTASSIUM CHLORIDE CR (KLOR-CON M20) 20 MEQ ER TABLET Take 2 tablets by mouth daily. QUETIAPINE (SEROQUEL) 100 MG TABLET Take 200 mg by mouth Nightly. SERTRALINE (ZOLOFT) 100 MG TABLET Take 200 mg by mouth in the morning. TIOTROPIUM (SPIRIVA RESPIMAT) 2.5 MCG/ACT INHALER Inhale 2 puffs in the morning. ZINC 50 MG CAPSULE Take 50 mg by mouth. ALLERGIES Pollen extract FAMILY HISTORY Family History Problem Relation Name Age of Onset Colon cancer Neg Hx Ovarian cancer Neg Hx Cancer Mother breast- to liver Cancer Sister breast Cancer Father lung to brain No Known Problems Brother Uterine cancer Neg Hx SOCIAL HISTORY Social History Socioeconomic History Marital status: Tobacco Use Smoking status: Former Packs/day: 1.5 Types: Cigarettes Quit date: 09/20/2011 Years since quittin.4 Smokeless tobacco: Never Tobacco comments: Quit smoking: pt states she quit 4-5 years ago Vaping Use Vaping Use: Every day Substance and Sexual Activity Alcohol use: Not Currently Comment: Approx once a year Drug use: No Social Determinants of Health Intimate Partner Violence: Not At Risk (05/21/2022) Humiliation, Afraid, Rape, and Kick questionnaire Fear of Current or Ex-Partner: No Emotionally Abused: No Physically Abused: No Sexually Abused: No SCREENINGS PHYSICAL EXAM ED Triage Vitals [02/13/23 1905] Temp Heart Rate Resp BP 36.8 C (98.2 F) 86 16 (!) 153/86 SpO2 Temp Source Heart Rate Source Patient Position 98 % Oral -- Lying BP Location FiO2 (%) Left arm -- Physical Exam Vitals and nursing note reviewed. Constitutional: General: She is not in acute distress. Comments: 67-year-old female HENT: Head: Normocephalic and atraumatic. Eyes: Extraocular Movements: Extraocular movements intact. Pupils: Pupils are equal, round, and reactive to light. Neck: Comments: No cervical spinal tenderness Cardiovascular: Rate and Rhythm: Normal rate. Pulses: Normal pulses. Pulmonary: Effort: Pulmonary effort is normal. Breath sounds: Normal breath sounds. Chest: Chest wall: No tenderness. Abdominal: Palpations: Abdomen is soft. Tenderness: There is no abdominal tenderness. Musculoskeletal: Comments: Left lateral proximal shoulder tenderness. Lumbar and sacral spinal tenderness. No step-offs. Pelvis stable to anterior and lateral compression. No thoracic spinal tenderness. No lower extremity tenderness to gross palpation. Skin: General: Skin is warm and dry. Neurological: General: No focal deficit present. Mental Status: She is alert. Sensory: No sensory deficit. Motor: No weakness. Coordination: Coordination normal. DIAGNOSTIC RESULTS RADIOLOGY (Per Emergency Physician): Interpretation per the Radiologist below, if available at the time of this note: XR shoulder 2+ views left (Results Pending) XR lumbar spine 2 or 3 views (Results Pending) LABS: Labs Reviewed - No data to display All other labs were within normal range or not returned as of this dictation. EMERGENCY DEPARTMENT COURSE and DIFFERENTIAL DIAGNOSIS/MDM: Vitals: Vitals: 02/13/235 BP: (!) 153/86 BP Location: Left arm Patient Position: Lying Pulse: 86 Resp: 16 Temp: 36.8 C (98.2 F) TempSrc: Oral SpO2: 98% Weight: 61.2 kg (135 lb) Height: 1.651 m (5' 5") Medications acetaminophen (Tylenol) tablet 1,000 mg (has no administration in time range) oxyCODONE (Roxicodone) immediate release tablet 5 mg (has no administration in time range) Evaluated for left shoulder and lower back pain after reported mechanical fall. Denies syncope. No signs of head trauma. Denies head or neck pain. Treated symptomatically for pain with oral acetaminophen oxycodone. Denies take any medications prior to presentation. Patient hemodynamically stable. Evaluated with left shoulder and lumbar x-rays. Patient has lumbar compression fractures. Discussed continued symptomatic treatment and discharged home. Patient and family expressed concerns about patient having multiple falls and feels she would be safe for her at a facility. Patient will be admitted for physical therapy assessment and disposition. ED Course as of 02/17/23 08 Sun Feb 13, [id number] XR shoulder 2+ views left No proximal humerus fracture on my review of left shoulder x-ray [SP] 2030 XR shoulder 2+ views left IMPRESSION: 1. No acute osseous abnormality. 2. Remote posttraumatic and mild degenerative change. [SP] 2030 XR lumbar spine 2 or 3 views IMPRESSION: 1. Multilevel, possible insufficiency compressive changes in the L2-L4 levels, mild and new in the L2 and L4 levels and moderate in the L3 level, similar to comparison. No other, acute osseous abnormality. 2. Degenerative change. [SP] 2049 Family is present on reevaluation. Patient and family are requesting placement back in rehab versus [facility] facility. They states they are concerned about patient's falling at home. Patient is agreeable. [SP] ED Course User Index [SP] Lorenzo Orozco MD Diagnoses as of 02/17/23 0847 Lumbar compression fracture, closed, initial encounter (HCC) Fall, initial encounter Multiple falls MDM elements: The patient presented with chief complaint of left shoulder and lower back pain. The differential diagnosis associated with this patient's presentation includes contusion, fracture, dislocation, sprain, strain. Our workup consisted of ordering/reviewing: Shoulder and lumbosacral x-ray. To aid in management, I performed an independent interpretation of Xray(s) . I discussed their care with Admitting team and family. The patient will be Admitted. Patient is in agreement with this plan. PROCEDURES: Unless otherwise noted below, none Procedures FINAL IMPRESSION 1. Lumbar compression fracture, closed, initial encounter (HCC) 2. Fall, initial encounter 3. Multiple falls DISPOSITION PATIENT REFERRED TO: No follow-up provider specified. DISCHARGE MEDICATIONS: New Prescriptions No medications on file (Comment: Please note this report has been produced using speech recognition software and may contain errors related to that system including errors in grammar, punctuation, and spelling, as well as words and phrases that may be inappropriate. If there are any questions or concerns please feel freeto contact the dictating provider for clarification.) Lorenzo Orozco MD (electronically signed) Emergency Medicine Provider Lorenzo Orozco MD 02/17/23 0849 * VERA Harper - 02/13/2023 6:59 PM EST Complaint of fall today injuring lower back and left shoulder. * Anahi Harvey RN - 02/13/2023 6:59 PM EST Bed: 02 Expected date: Expected time: Means of arrival: Comments: Jean Harvey RN 02/13/23 185 * Nancy Salas RN - 02/13/2023 6:59 PM EST Bed: 16 Expected date: Expected time: Means of arrival: Comments: Room 2 Nancy Salas RN 02/13/232203 documented in this [place]11-27-2023 Note* Home Care - Deanna Romero LPN - 02/14/2023 8:50 AM EST Patient is currently active with [facility]. The patients current certification period will on 03/28/23. The patient is currently receiving PT services through the agency. Desk Maker to continue to follow. [facility] [id number] Note* Home Care - Deanna Romero LPN - 02/14/2023 8:50 AM EST Patient is currently active with [facility]. The patients current certification period will on 03/28/23. The patient is currently receiving PT services through the agency. Desk Maker to continue to follow. [facility] [id number] Emergency department Note* Joaquina Guevara RN - 02/14/2023 8:27 AM EST Attempted Nurse to nurse via telephone at this time, Peter states they will call back. Joaquina Guevara RN 02/14/[address] [facility] [id number] Consult note* Betsey Gresham MD - 02/14/2023 7:49 AM ESTAssociated Order(s): Inpatient consult to orthopaedic surgery-- Inpatient consult to orthopaedic surgery-- Consult performed by: Betsey Gresham MD Consult ordered by: Lauren Serna MD Consult Note Date:02/14/2023 Patient Name:Gonzalo Deluca Date of :1955 Age:67 y.o. Reason for Consult: back and left shoulder pain Chief Complaint Chief Complaint Patient presents with Fall Complaint of a fall today getting off of a toilet injuring lower back and pelvis pain. Pt also states her left shoulder hurts. Denies LOC or blood thinners. Pt is alert and oriented at this time. Back pain History Obtained From Patient and chart History of Present Illness This patient has had previous falls. She fell in October and suffered a left clavicle fracture and underwent surgical repair of the left hip fracture. She slipped on a bathroom rug and fell against the wall on the evening of February 13, 2023 (yesterday.) She is complaining of low back pain. Left shoulder pain upon arrival to the ER has improved dramatically. She denies radiation distally she localizes the pain to the thoracolumbar junction. Past Medical History Past Medical History: Diagnosis Date Abnormal stress test Allergic rhinitis Arthritis Asthma Bronchitis Cancer (CMS/HCC) ([facility]) skin Cervical cancer (CMS/HCC) ([facility]) Chest pain COPD (chronic obstructive pulmonary disease) ([facility]) USE OXYGEN 3 L AT NIGHT DDD (degenerative disc disease), cervical Defect, retina, with detachment right DJD (degenerative joint disease), lumbar Emphysema lung ([facility]) Former smoker Hematuria SCHEDULED FOR THE PROCEDURE /SURGERY ON 02/11/2017 Hypokalemia Lung nodules Osteoporosis Palpitations Pneumonia Recurrent major depression ([facility]) Sciatica Thoracic compression fracture ([facility]) Vitamin D deficiency Past Surgical History Past Surgical History: Procedure Laterality Date CYSTOSCOPY 01/12/2017 OFFICE PROCEDURE CYSTOSCOPY 02/11/2017 C&P bladder biopsy EYE SURGERY detached retina 1994 HYSTERECTOMY 11/06/2019 ABDOMINAL RADICAL HYSTERECTOMY WITH BSO AND PELVIC LYMPH; DR. ZIYAD MENENDEZ [facility] OTHER SURGICAL HISTORY Left 12/19/2019 Med Port POWER Regular Size OTHER SURGICAL HISTORY Left 11/07/2022 Percutaneous skeltal fixation femoral fracture TUBAL LIGATION 1992 Medications Prior to Admission medications Medication Sig Start Date End Date Taking? Authorizing Provider albuterol 108 (90 Base) MCG/ACT inhaler Inhale 2 puffs every 4 hours as needed. 08/06/21 Historical Provider, alendronate (Fosamax) 70 MG tablet Take 70 mg by mouth once a week. 12/14/21 12/14/22 Historical Provider, aspirin 81 MG EC tablet Take 81 mg by mouth. 11/25/19 Historical Provider, atorvastatin (Lipitor) 40 MG tablet Take 1 tablet by mouth Nightly. 11/24/19 Historical Provider, buPROPion XL (Wellbutrin XL) 150 MG 24 hr tablet Take 150 mg by mouth in the morning. 08/06/21 08/06/22 Historical Provider, calcium carbonate-cholecalciferol (Oyster Shell) 250-3.125 MG-MCG tablet Take 1 tablet by mouth. Historical Provider, clonazePAM (KlonoPIN) 0.5 MG tablet Take 1 tablet by mouth Nightly. 11/24/19 Historical Provider, diphenhydrAMINE (Sominex) 25 MG tablet Take 25 mg by mouth. Historical Provider, fluticasone (Flonase) 50 MCG/ACT nasal spray 2 sprays in the morning. 08/06/21 08/06/22 Historical Provider, Fluticasone Furoate-Vilanterol (Breo Ellipta) 200-25 MCG/ACT aerosol powder Inhale 1 puff daily. Historical Provider, gabapentin (Neurontin) 600 MG tablet Take 1 tablet by mouth daily. 02/08/20 Historical Provider, magnesium oxide (Mag-Ox) 400 mg tablet 400 mg daily. Historical Provider, montelukast (Singulair) 10 MG tablet Take 10 mg by mouth Nightly. Historical Provider, nicotine (Nicoderm, Step 1) 21 MG/24HR patch Place 1 patch on the skin daily. Do not start before November 09, 2022. 11/09/22 12/09/22 Raul Whipple, potassium chloride CR (Klor-Con M20) 20 MEQ ER tablet Take 2 tablets by mouth daily. 02/08/20 Historical Provider, QUEtiapine (SEROquel) 100 MG tablet Take 200 mg by mouth Nightly. Historical Provider, sertraline (Zoloft) 100 MG tablet Take 200 mg by mouth in the morning. 02/02/21 Historical Provider, tiotropium (Spiriva Respimat) 2.5 MCG/ACT inhaler Inhale 2 puffs in the morning. 11/20/21 Historical Provider, Zinc 50 MG capsule Take 50 mg by mouth. Historical Provider, Allergies Pollen extract Social History reports that she quit smoking about 11 years ago. Her smoking use included cigarettes. She smoked an average of 1.5 packs per day. She has never used smokeless tobacco. She reports that she does not currently use alcohol. She reports that she does not use drugs. Family History Family History Problem Relation Name Age of Onset Colon cancer Neg Hx Ovarian cancer Neg Hx Cancer Mother breast- to liver Cancer Sister breast Cancer Father lung to brain No Known Problems Brother Uterine cancer Neg Hx Review of Systems See H&P Physical Exam BP (!) 137/94 Pulse 83 Temp 36.8 C (98.2 F) (Oral) Resp 18 Ht 1.651 m (5' 5") Wt 61.2 kg (135 lb) SpO2 95% BMI 22.47 kg/m General: Well-developed, well-nourished, thin. Appears older than her stated age of 67 she is in noacute distress Vascular: No cyanosis, clubbing or edema bilateral lower extremities Neurologic: Alert and oriented x 3. Mood and affect normal. Sensory exams intact to light touch bilateral lower extremities. Musculoskeletal: Full range of motion of left shoulder with mild pain on end range. Mild discomforton palpation at the distal clavicle. Distal motor functions intact bilateral lower extremities without deformity. Pain on palpation from the thoracolumbar junction to the lumbar sacral junction. Thora cic kyphosis is present. No step-offs. Labs CBC: Recent Labs 02/13/232113 WBC 11.1* RBC 3.86 HGB 11.9 HCT 36.2 MCV 93.9 RDW 13.8 PLT 212 CHEMISTRIES: Recent Labs 02/13/232113 NA 137 K 3.7 CL 98 CO2 32* BUN 13 CREATININE 0.50* GLUCOSE 96 PT/INR:No results for input(s): "PROTIME", "INR" in the last 72 hours. APTT:No results for input(s): "APTT" in the last 72 hours. LIVER PROFILE:No results for input(s): "AST", "ALT", "BILIDIR", "BILITOT", "ALKPHOS" in the last 72hours. Imaging/Diagnostics Reviewed x-rays include: X-ray of the left shoulder shows osteopenia with progressive healing of her subacute left distal clavicle fracture which is comminuted in comparison to prior x-rays October 2022. X-ray of the lumbar spine shows lumbar degenerative disease. She has new interval compression deformities at L2 and L4 compared to prior films 16 October 2020. L3 compression deformity has no interval change. Percutaneous screw fixation of the left hip is present. Assessment 1. L2 and L4 compression deformities, new from 2020, post fall 201924 January 2023. 2. L3 compression deformity without interval change from 2020 3. Thoracic kyphosis 4. Thoracic pain 5. Lumbar degenerative disc disease 6. Subacute left clavicle fracture with progressive healing from October 2022 7. Status post percutaneous screw fixation left intertrochanteric hip fracture Plan 1. This patient presents as an acute thoracolumbar fracture. Discussed MRI with her. She states that due to claustrophobia she cannot get an MRI even with sedation. PT and OT have been ordered. She can be weightbearing as tolerated and PT can proceed. Explained toher that our only option to check for acuity for occult fractures would be a bone scan, however based on her osteoporosis and age we would have to wait until 17 February for this to be accurate. Thank you for the consult we will follow with you. [facility]11-27-2023 Consult note* Betsey [facility]resham MD - [facility]14[facility] consult to orthopaedic surgery-- Inpatient consult to orthopaedic surgery-- Consult performed by: Betsey Gresham MD Consult ordered by: Lauren Serna MD Consult Note Date:02/14/2023 Patient Name:Gonzalo Deluca Date of :1955 Age:67 y.o. Reason for Consult: back and left shoulder pain Chief Complaint Chief Complaint Patient presents with Fall Complaint of a fall today getting off of a toilet injuring lower back and pelvis pain. Pt also states her left shoulder hurts. Denies LOC or blood thinners. Pt is alert and oriented at this time. Back pain History Obtained From Patient and chart History of Present Illness This patient has had previous falls. She fell in October and suffered a left clavicle fracture and underwent surgical repair of the left hip fracture. She slipped on a bathroom rug and fell against the wall on the evening of February 13, 2023 (yesterday.) She is complaining of low back pain. Left shoulder pain upon arrival to the ER has improved dramatically. She denies radiation distally she localizes the pain to the thoracolumbar junction. Past Medical History Past Medical History: Diagnosis Date Abnormal stress test Allergic rhinitis Arthritis Asthma Bronchitis Cancer (CMS/HCC) ([facility]) skin Cervical cancer (CMS/HCC) ([facility]) Chest pain COPD (chronic obstructive pulmonary disease) ([facility]) USE OXYGEN 3 L AT NIGHT DDD (degenerative disc disease), cervical Defect, retina, with detachment right DJD (degenerative joint disease), lumbar Emphysema lung ([facility]) Former smoker Hematuria SCHEDULED FOR THE PROCEDURE /SURGERY ON 02/11/2017 Hypokalemia Lung nodules Osteoporosis Palpitations Pneumonia Recurrent major depression ([facility]) Sciatica Thoracic compression fracture (HCC) Vitamin D deficiency Past Surgical History Past Surgical History: Procedure Laterality Date CYSTOSCOPY 01/12/2017 OFFICE PROCEDURE CYSTOSCOPY 02/11/2017 C&P bladder biopsy EYE SURGERY detached retina 1994 HYSTERECTOMY 11/06/2019 ABDOMINAL RADICAL HYSTERECTOMY WITH BSO AND PELVIC LYMPH; DR. ZIYAD NORWOODA OTHER SURGICAL HISTORY Left 12/19/2019 Med Port POWER Regular Size OTHER SURGICAL HISTORY Left 11/07/2022 Percutaneous skeltal fixation femoral fracture TUBAL LIGATION 1992 Medications Prior to Admission medications Medication Sig Start Date End Date Taking? Authorizing Provider albuterol 108 (90 Base) MCG/ACT inhaler Inhale 2 puffs every 4 hours as needed. 08/06/21 Historical Provider, alendronate (Fosamax) 70 MG tablet Take 70 mg by mouth once a week. 12/14/21 12/14/22 Historical Provider, aspirin 81 MG EC tablet Take 81 mg by mouth. 11/25/19 Historical Provider, atorvastatin (Lipitor) 40 MG tablet Take 1 tablet by mouth Nightly. 11/24/19 Historical Provider, buPROPion XL (Wellbutrin XL) 150 MG 24 hr tablet Take 150 mg by mouth in the morning. 08/06/21 08/06/22 Historical Provider, calcium carbonate-cholecalciferol (Oyster Shell) 250-3.125 MG-MCG tablet Take 1 tablet by mouth. Historical Provider, clonazePAM (KlonoPIN) 0.5 MG tablet Take 1 tablet by mouth Nightly. 11/24/19 Historical Provider, diphenhydrAMINE (Sominex) 25 MG tablet Take 25 mg by mouth. Historical Provider, fluticasone (Flonase) 50 MCG/ACT nasal spray 2 sprays in the morning. 08/06/21 08/06/22 Historical Provider, Fluticasone Furoate-Vilanterol (Breo Ellipta) 200-25 MCG/ACT aerosol powder Inhale 1 puff daily. Historical Provider, gabapentin (Neurontin) 600 MG tablet Take 1 tablet by mouth daily. 02/08/20 Historical Provider, magnesium oxide (Mag-Ox) 400 mg tablet 400 mg daily. Historical Provider, montelukast (Singulair) 10 MG tablet Take 10 mg by mouth Nightly. Historical Provider, nicotine (Nicoderm, Step 1) 21 MG/24HR patch Place 1 patch on the skin daily. Do not start before November 09, 2022. 11/09/22 12/09/22 Raul Whipple, potassium chloride CR (Klor-Con M20) 20 MEQ ER tablet Take 2 tablets by mouth daily. 02/08/20 Historical Provider, QUEtiapine (SEROquel) 100 MG tablet Take 200 mg by mouth Nightly. Historical Provider, sertraline (Zoloft) 100 MG tablet Take 200 mg by mouth in the morning. 02/02/21 Historical Provider, tiotropium (Spiriva Respimat) 2.5 MCG/ACT inhaler Inhale 2 puffs in the morning. 11/20/21 Historical Provider, Zinc 50 MG capsule Take 50 mg by mouth. Historical Provider, Allergies Pollen extract Social History reports that she quit smoking about 11 years ago. Her smoking use included cigarettes. She smoked an average of 1.5 packs per day. She has never used smokeless tobacco. She reports that she does not currently use alcohol. She reports that she does not use drugs. Family History Family History Problem Relation Name Age of Onset Colon cancer Neg Hx Ovarian cancer Neg Hx Cancer Mother breast- to liver Cancer Sister breast Cancer Father lung to brain No Known Problems Brother Uterine cancer Neg Hx Review of Systems See H&P Physical Exam BP (!) 137/94 Pulse 83 Temp 36.8 C (98.2 F) (Oral) Resp 18 Ht 1.651 m (5' 5") Wt 61.2 kg (135 lb) SpO2 95% BMI 22.47 kg/m General: Well-developed, well-nourished, thin. Appears older than her stated age of 67 she is in noacute distress Vascular: No cyanosis, clubbing or edema bilateral lower extremities Neurologic: Alert and oriented x 3. Mood and affect normal. Sensory exams intact to light touch bilateral lower extremities. Musculoskeletal: Full range of motion of left shoulder with mild pain on end range. Mild discomforton palpation at the distal clavicle. Distal motor functions intact bilateral lower extremities without deformity. Pain on palpation from the thoracolumbar junction to the lumbar sacral junction. Thora cic kyphosis is present. No step-offs. Labs CBC: Recent Labs 02/13/234 WBC 11.1* RBC 3.86 HGB 11.9 HCT 36.2 MCV 93.9 RDW 13.8 PLT 212 CHEMISTRIES: Recent Labs 02/13/232113 NA 137 K 3.7 CL 98 CO2 32* BUN 13 CREATININE 0.50* GLUCOSE 96 PT/INR:No results for input(s): "PROTIME", "INR" in the last 72 hours. APTT:No results for input(s): "APTT" in the last 72 hours. LIVER PROFILE:No results for input(s): "AST", "ALT", "BILIDIR", "BILITOT", "ALKPHOS" in the last 72hours. Imaging/Diagnostics Reviewed x-rays include: X-ray of the left shoulder shows osteopenia with progressive healing of her subacute left distal clavicle fracture which is comminuted in comparison to prior x-rays October 2022. X-ray of the lumbar spine shows lumbar degenerative disease. She has new interval compression deformities at L2 and L4 compared to prior films 16 October 2020. L3 compression deformity has no interval change. Percutaneous screw fixation of the left hip is present. Assessment 1. L2 and L4 compression deformities, new from 2020, post fall 201924 January 2023. 2. L3 compression deformity without interval change from 2020 3. Thoracic kyphosis 4. Thoracic pain 5. Lumbar degenerative disc disease 6. Subacute left clavicle fracture with progressive healing from October 2022 7. Status post percutaneous screw fixation left intertrochanteric hip fracture Plan 1. This patient presents as an acute thoracolumbar fracture. Discussed MRI with her. She states that due to claustrophobia she cannot get an MRI even with sedation. PT and OT have been ordered. She can be weightbearing as tolerated and PT can proceed. Explained toher that our only option to check for acuity for occult fractures would be a bone scan, however based on her osteoporosis and age we would have to wait until 17 February for this to be accurate. Thank you for the consult we will follow with you. documented in this [place]11-26-2023 History and physical note* Lauren Serna MD - 02/13/2023 11:12 PM EST Images from the original note were not included. History and Physical [facility] Gonzalo Deluca : 1955 AGE 67 y.o. YEARS Note Date 02/13/2023 Primary Care Physician:HERMINIA CASE MD Current Providers as of 02/13/2023 PCP: Herminia Case MD Care Team Provider: Ziyad Menendez MD Care Team Provider: DB Durham CNP Care Team Provider: DB Kohli CNP Referring Provider: not found, starting on TueFeb 13, 2023 12:00 AM Admitting Provider: Lauren Serna MD, (Active) Attending Provider: Lorenzo Orozco MD, starting on TueFeb 13, 2023 7:15 PM (Active) Attending Provider: Lauren Serna MD, starting on TueFeb 13, 2023 9:24 PM (Active) Chief Complaint: Fall (Complaint of a fall today getting off of a toilet injuring lower back and pelvis pain. Pt also states her left shoulder hurts. Denies LOC or blood thinners. Pt is alert and oriented at this time. ) HPI: She presented to the ed with a fall She reports she was in the bathroom and she stood up She slipped on a bath mat, she fell, her left shoulder hit the wall, and she then fell down She had lower back afterwards, mid lower back Pain was located in the center in the lumbar area not below her waistline She did have some bruising on her left shoulder But she has some left shoulder pain mid lower back pain she denies any other pain such as head or neck pain She did not feel like she was dizzy or lightheaded that she was going to pass out She did not have any bowel or bladder incontinence she did not think that she lost consciousness. She did not have any radiating pain going down her legs Earlier this year she had a fall with a left hip fracture that was repaired she has stay in ECF For few weeks has been home for approximately couple months She is on chronic oxygen at home Review of Systems: General: Skin: HEENT: Cardiovascular Fever n Rashes n Difficulty chewing n Chest Pain n Chills n Sores n Appetite Loss n Chest Pressure n Fatigue n Epistaxis n Orthopnea n Sweats n Hearing loss n Palpitations n GI: Tinnitus n GERD n Vision quality n RESP: Abdominal Pain n : SOB/ADRIAN chronically Nausea n Hematuria n Cough n Vomiting n Dysuria n Productive/Sputum n Hematemesis n NEURO: Urgency n Hemoptysis n Diarrhea n Headaches n Frequency n Wheezing n Constipation n Seizures n Times at night urinating n Heamatochezia n Neuropathy n catheter present n MSK: Melena n Focal weakness n Hesitancy n Focal Numbness n Incontinence n Acute joint pain Left shoulder and lower back Dizzy/Vertigo n Redness n Difficulty speaking Heme/Lymph Swelling She has some left leg swelling Difficulty walking Lymphadenopathy Myalgia Ataxia Chronic joint pain Past Medical History: Diagnosis Date Abnormal stress test Allergic rhinitis Arthritis Asthma Bronchitis Cancer (CMS/HCC) ([facility]) skin Cervical cancer (CMS/HCC) ([facility]) Chest pain COPD (chronic obstructive pulmonary disease) ([facility]) USE OXYGEN 3 L AT NIGHT DDD (degenerative disc disease), cervical Defect, retina, with detachment right DJD (degenerative joint disease), lumbar Emphysema lung ([facility]) Former smoker Hematuria SCHEDULED FOR THE PROCEDURE /SURGERY ON 02/11/2017 Hypokalemia Lung nodules Osteoporosis Palpitations Pneumonia Recurrent major depression ([facility]) Sciatica Thoracic compression fracture ([facility]) Vitamin D deficiency She is on 3 liters of oxygen all the time Past Surgical History: Procedure Laterality Date CYSTOSCOPY 01/12/2017 OFFICE PROCEDURE CYSTOSCOPY 02/11/2017 C&P bladder biopsy EYE SURGERY detached retina 1994 HYSTERECTOMY 11/06/2019 ABDOMINAL RADICAL HYSTERECTOMY WITH BSO AND PELVIC LYMPH; DR. ZIYAD MENENDEZ [facility] OTHER SURGICAL HISTORY Left 12/19/2019 Med Port POWER Regular Size OTHER SURGICAL HISTORY Left 11/07/2022 Percutaneous skeltal fixation femoral fracture TUBAL LIGATION 1992 Allergies Allergen Reactions Pollen Extract Unknown Medications Prior to Admission: albuterol HFA (PROVENTIL HFA, VENTOLIN HFA) 90 mcg/actuation inhaler Indications: Panlobular emphysema (HCC) Inhale 2 Puffs as instructed every 4 hours as needed for wheezing/shortness of breath. 18 g 5 08/06/2021 Active Nebulizers Indications: Chronic respiratory failure with hypoxia (HCC), Panlobular emphysema (HCC) Use as directed. 1 Each 0 06/22/2022 Active albuterol (PROVENTIL) 2.5 mg /3 mL (0.083 %) nebulizer solution INHALE 3 ML VIA NEBULIZER EVERY 4 HOURS NEEDED FOR WHEEZE OR FOR SHORTNESS OF BREATH 90 mL 1 06/22/2022 Active buPROPion XL (WELLBUTRIN XL) 150 mg 24 hr tablet Indications: Major depression, recurrent, chronic (HCC) TAKE 1 TABLET BY MOUTH EVERY DAY 90 tablet 3 07/30/2022 Active fluticasone-vilanterol (BREO ELLIPTA) 200-25 mcg/dose inhaler Indications: Pulmonary emphysema, unspecified emphysema type (HCC) Inhale 1 Inhalation as instructed once daily. 60 Each 5 11/08/2022 05/07/2023 Active fluticasone (FLONASE) 50 mcg/actuation nasal spray Use 2 Sprays in each nostril once daily. 1 Each 11 11/08/2022 11/08/2023 Active atorvastatin (LIPITOR) 40 mg tablet Indications: Hyperlipidemia, mixed TAKE 1 TABLET BY MOUTH EVERY DAY AT NIGHT 90 tablet 3 2022ctive tiotropium bromide (SPIRIVA RESPIMAT) 2.5 mcg/actuation inhaler Indications: Pulmonary emphysema, unspecified emphysema type (HCC) INHALE 2 PUFFS BY MOUTH ONCE DAILY DIRECTED 3 Each 3 11/24/2022 Active alendronate (FOSAMAX) 70 mg tablet Indications: Age-related osteoporosis without current pathological fracture TAKE 1 TABLET BY MOUTH ONE TIME A WEEK. 12 tablet 3 12/10/2022 12/10/2023 Active DULoxetine (CYMBALTA) 30 mg capsule Indications: Moderate episode of recurrent major depressive disorder (HCC) Take 1 capsule by mouth once daily for 14 days. 14 capsule 0 01/14/2023 Active diclofenac (VOLTAREN ARTHRITIS PAIN) 1 % topical gel Indications: Compression fracture of body of thoracic vertebra (HCC), Other closed nondisplaced fracture of proximal end of right humerus with routine healing, subsequent encounter Apply 2 g to affected area four times daily. 200 g 5 01/14/2023 Active oxyCODONE-acetaminophen (PERCOCET) 5-325 mg tablet Indications: Compression fracture of body of thoracic vertebra (HCC), Other closed nondisplaced fracture of proximal end of right humerus with routine healing, subsequent encounter Take 1 tablet by mouth every 4 hours as needed for pain for up to 30 days. 134 tablet 0 02/07/2023 03/09/2023 Active DULoxetine (CYMBALTA) 60 mg capsule Indications: Moderate episode of recurrent major depressive disorder (HCC) Take 1 capsule by mouth once daily. 90 capsule 0 02/07/2023 05/08/2023 Active cyclobenzaprine (FLEXERIL) 5 mg tablet Indications: Compression fracture of body of thoracic vertebra (HCC), Other closed nondisplaced fracture of proximal end of right humerus with routine healing, subsequent encounter Take 1 tablet by mouth two times a day as needed. 90 tablet 0 02/07/2023 05/08/2023 Active QUEtiapine (SEROQUEL) 100 mg tablet TAKE 2 TABLETS BY MOUTH AT BEDTIME NEEDED 180 tablet 1 02/07/2023 Active QUEtiapine (SEROQUEL) 100 mg tablet Take 2 tablets by mouth at bedtime as needed. 180 tablet 1 09/15/2022 02/07/2023 Discontinued oxyCODONE-acetaminophen (PERCOCET) 5-325 mg tablet Indications: Compression fracture of body of thoracic vertebra (HCC), Other closed nondisplaced fracture of proximal end of right humerus with routine healing, subsequent encounter Take 1 tablet by mouth every 4 hours as needed for pain for up to 30 days. 134 tablet 0 01/11/2023 02/06/2023 Discontinued DULoxetine (CYMBALTA) 60 mg capsule Indications: Moderate episode of recurrent major depressive disorder (HCC) Take 1 capsule by mouth once daily. 30 capsule 0 01/14/2023 02/06/2023 Discontinued cyclobenzaprine (FLEXERIL) 5 mg tablet Indications: Compression fracture of body of thoracic vertebra (HCC), Other closed nondisplaced fracture of proximal end of right humerus with routine healing, subsequent encounter Take 1 tablet by mouth two times a day as needed. 30 Current Outpatient Medications Medication Instructions albuterol 108 (90 Base) MCG/ACT inhaler 2 puffs, Inhalation, Every 4 hours PRN alendronate (FOSAMAX) 70 mg, Oral, Weekly aspirin 81 mg, Oral atorvastatin (Lipitor) 40 MG tablet 1 tablet, Oral, Nightly buPROPion XL (WELLBUTRIN XL) 150 mg, Oral, Daily calcium carbonate-cholecalciferol (Oyster Shell) 250-3.125 MG-MCG tablet 1 tablet, Oral clonazePAM (KlonoPIN) 0.5 MG tablet 1 tablet, Oral, Nightly diphenhydrAMINE (SOMINEX) 25 mg, Oral fluticasone (Flonase) 50 MCG/ACT nasal spray 2 sprays, Does not apply, Daily Fluticasone Furoate-Vilanterol (Breo Ellipta) 200-25 MCG/ACT aerosol powder 1 puff, Inhalation, Daily gabapentin (Neurontin) 600 MG tablet 1 tablet, Oral, Daily magnesium oxide (MAG-OX) 400 mg, Daily montelukast (SINGULAIR) 10 mg, Oral, Nightly nicotine (Nicoderm, Step 1) 21 MG/24HR patch 1 patch, TransDERmal, Daily potassium chloride CR (Klor-Con M20) 20 MEQ ER tablet 2 tablets, Oral, Daily QUEtiapine (SEROQUEL) 200 mg, Oral, Nightly sertraline (ZOLOFT) 200 mg, Oral, Daily tiotropium (Spiriva Respimat) 2.5 MCG/ACT inhaler 2 puffs, Inhalation, Daily Zinc 50 mg, Oral Social History Social History Tobacco Use Smoking status: Former Packs/day: 1.5 Types: Cigarettes Quit date: 09/20/2011 Years since quittin.4 Smokeless tobacco: Never Tobacco comments: Quit smoking: pt states she quit 4-5 years ago Substance Use Topics Alcohol use: Not Currently Comment: Approx once a year She vapes nicotine Family History Family History Problem Relation Name Age of Onset Colon cancer Neg Hx Ovarian cancer Neg Hx Cancer Mother breast- to liver Cancer Sister breast Cancer Father lung to brain No Known Problems Brother Uterine cancer Neg Hx Physical Exam Temp (24hrs), Av.8 C (98.2 F), Min:36.8 C (98.2 F), Max:36.8 C (98.2 F) Body mass index is 22.47 kg/m .BMI Classification: Normal Weight (BMI 18.5-24.9) BP (!) 153/86 (BP Location: Left arm, Patient Position: Lying) Pulse 86 Temp 36.8 C (98.2 F) (Oral) Resp 16 Ht 5' 5" (1.651 m) Wt 135 lb (61.2 kg) SpO2 98% BMI 22.47 kg/m Pulse Ox: [id number]: 98 % Min: 98 % Max: 98 % Supplemental O2: O2 Flow Rate (L/min): 3 L/min General appearance: She is alert and oriented answering questions well resting in bed no distress HEENT: Normal cephalic, atraumatic without obvious deformity. Pupils equal, round, and reactive to light. Extra ocular muscles intact. Conjunctivae/corneas clear. Neck: Supple, with full range of motion. No jugular venous distention. Trachea midline. No lymphadenopathy. Respiratory: Normal respiratory effort. Clear to auscultation, bilaterally without Rales/Wheezes/Rhonchi. Cardiovascular: Regular rate and rhythm with normal S1/S2 without murmurs, rubs or gallops. Abdomen: Soft, non-tender, non-distended with normal bowel sounds. No rebound or guarding. Musculoskeletal: Her pain is located in her mid lumbar area. There is no particular areas of point tenderness There is no bruising. Except on the lateral side of her left shoulder Skin: Skin color, texture, turgor normal. No rashes or lesions. Neurologic: Neurovascularly intact without any focal sensory/motor deficits. Cranial nerves grosslyintact. Labs Admission on 02/13/2023 Component Date Value SODIUM 02/13/2023 137 POTASSIUM 02/13/2023 3.7 CHLORIDE 02/13/2023 98 CARBON DIOXIDE 02/13/2023 32 (H) UREA NITROGEN 02/13/2023 13 CREATININE 02/13/2023 0.50 (L) GLUCOSE 02/13/2023 96 CALCIUM 02/13/2023 9.1 ANION GAP 02/13/2023 7 eGFR 02/13/2023 >90.0 Auto WBC 02/13/2023 11.1 (H) RBC 02/13/2023 3.86 Hemoglobin 02/13/2023 11.9 Hematocrit 02/13/2023 36.2 MCV 02/13/2023 93.9 MCH 02/13/2023 30.7 MCHC 02/13/2023 32.7 RDW 02/13/2023 13.8 Platelets 02/13/2023 212 MPV 02/13/2023 7.3 (L) nRBC 02/13/2023 0.0 Neutrophils Relative 02/13/2023 88.7 (H) Lymphocytes Relative 02/13/2023 6.4 (L) Monocytes Relative 02/13/2023 3.7 Eosinophils Relative 02/13/2023 0.9 (L) Basophils Relative 02/13/2023 0.3 Neutrophils Absolute 02/13/2023 9.9 (H) Lymphocytes Absolute 02/13/2023 0.7 (L) Monocytes Absolute 02/13/2023 0.4 Eosinophils Absolute 02/13/2023 0.1 Basophils Absolute 02/13/2023 0.0 EKG Encounter Date: 11/06/22 ECG 12 lead Result Value Heart Rate 121 QRSD Interval 98 QT Interval 395 QTC Interval 473 P [place] 69 QRS [place] -35 T Wave [place] -12 MI Interval 152 Impression Sinus rhythm Inferior infarct, old Electronically Signed On 11-07-2022 1:11:05 EDT by Melva Hull Assessment/Plan and Medical Decision Making Fall with back and shoulder pain Lumbar xray "L2-L4 levels, mild and new in the L2 and L4 levels and moderate in the L3 level, " She is having pain in her lumbar back only No radiating symptoms no numbness weakness urinary incontinence Orthopedics will see and evaluate her for this For any possible further imaging or possible intervention She is 67 years old she reports osteoporosis or osteopenia but states she has not had a bone density done in 5 or 6 years will likely need to repeat bone density scan done She does supplement with vitamin D and take Fosamax at home. If new bone density study does show significant osteopenia or osteoporosis. May need to consider alternate therapies to treat as she already had earlier hip fracture this year. Patient did have left shoulder pain as well and there is a bruise present on exam however x-ray left shoulder is negative for fracture [facility] orthopedics has seen her in the past seeing her engineering technologist for the For now I will continue with oral pain control with Percocet we will add IV medication if needed Activity per orthopedics copd She is on home oxygen We will continue this she is not significantly wheezing on exam we will provide as needed breathingtreatments we will not treat for an acute exacerbation I reconciled the rest of her home medications I will continue her aspirin and statin Wellbutrin and Seroquel that she is on at home patient also takes Fosamax which can be handled as an outpatient vitamin D at home but I am unsure of the dose Per her PDMP she has not received prescription for benzodiazepines recently Patient would like evaluation for possible rehab at discharge either inpatient rehab or ECF, and case management will need to get involved to see what she qualifies for -DVT prophylaxis: [x] Lovenox [] Heparin [] SCDs [x] Encourage ambulation [] Already on Anticoagulation [] Pharmocologic prophylaxis on hold to due risk bleed/procedure 02/13/2023 Gonzalo Deluca [id number] Any scheduled follow up appointments Future Appointments Date Time Provider Department Center 03/09/2023 11:15 AM Freddy Person MD [facility] None 04/22/2023 1:00 PM DB Durham CNP [facility] None Extended Emergency Contact Information Primary Emergency Contact: Nacho Delucai Address: [address] [place] [address] [place] [address] [facility] Mobile Relation: Daughter Secondary Emergency Contact: Jace Deluca Mobile Relation: Son Portions of this note may be electronically transcribed. Please forward a copy of this H&P to the primary care physician. [facility] Phone: [phone] History and physical note* Lauren Serna MD - 02/13/2023 11:12 PM EST Images from the original note were not included. History and Physical [facility] Gonzalo Starksyahir : 1955 AGE 67 y.o. YEARS Note Date 02/13/2023 Primary Care Physician:HERMINIA CASE MD Current Providers as of 02/13/2023 PCP: Herminia Case MD Care Team Provider: Ziyad Menendez MD Care Team Provider: DB Durham CNP Care Team Provider: DB Kohli CNP Referring Provider: not found, starting on TueFeb 13, 2023 12:00 AM Admitting Provider: Lauren Serna MD, (Active) Attending Provider: Lorenzo Orozco MD, starting on TueFeb 13, 2023 7:15 PM (Active) Attending Provider: Lauren Serna MD, starting on TueFeb 13, 2023 9:24 PM (Active) Chief Complaint: Fall (Complaint of a fall today getting off of a toilet injuring lower back and pelvis pain. Pt also states her left shoulder hurts. Denies LOC or blood thinners. Pt is alert and oriented at this time. ) HPI: She presented to the ed with a fall She reports she was in the bathroom and she stood up She slipped on a bath mat, she fell, her left shoulder hit the wall, and she then fell down She had lower back afterwards, mid lower back Pain was located in the center in the lumbar area not below her waistline She did have some bruising on her left shoulder But she has some left shoulder pain mid lower back pain she denies any other pain such as head or neck pain She did not feel like she was dizzy or lightheaded that she was going to pass out She did not have any bowel or bladder incontinence she did not think that she lost consciousness. She did not have any radiating pain going down her legs Earlier this year she had a fall with a left hip fracture that was repaired she has stay in ECF For few weeks has been home for approximately couple months She is on chronic oxygen at home Review of Systems: General: Skin: HEENT: Cardiovascular Fever n Rashes n Difficulty chewing n Chest Pain n Chills n Sores n Appetite Loss n Chest Pressure n Fatigue n Epistaxis n Orthopnea n Sweats n Hearing loss n Palpitations n GI: Tinnitus n GERD n Vision quality n RESP: Abdominal Pain n : SOB/ADRIAN chronically Nausea n Hematuria n Cough n Vomiting n Dysuria n Productive/Sputum n Hematemesis n NEURO: Urgency n Hemoptysis n Diarrhea n Headaches n Frequency n Wheezing n Constipation n Seizures n Times at night urinating n Heamatochezia n Neuropathy n catheter present n MSK: Melena n Focal weakness n Hesitancy n Focal Numbness n Incontinence n Acute joint pain Left shoulder and lower back Dizzy/Vertigo n Redness n Difficulty speaking Heme/Lymph Swelling She has some left leg swelling Difficulty walking Lymphadenopathy Myalgia Ataxia Chronic joint pain Past Medical History: Diagnosis Date Abnormal stress test Allergic rhinitis Arthritis Asthma Bronchitis Cancer (CMS/HCC) ([facility]) skin Cervical cancer (CMS/HCC) ([facility]) Chest pain COPD (chronic obstructive pulmonary disease) ([facility]) USE OXYGEN 3 L AT NIGHT DDD (degenerative disc disease), cervical Defect, retina, with detachment right DJD (degenerative joint disease), lumbar Emphysema lung (HCC) Former smoker Hematuria SCHEDULED FOR THE PROCEDURE /SURGERY ON 02/11/2017 Hypokalemia Lung nodules Osteoporosis Palpitations Pneumonia Recurrent major depression (HCC) Sciatica Thoracic compression fracture (HCC) Vitamin D deficiency She is on 3 liters of oxygen all the time Past Surgical History: Procedure Laterality Date CYSTOSCOPY 01/12/2017 OFFICE PROCEDURE CYSTOSCOPY 02/11/2017 C&P bladder biopsy EYE SURGERY detached retina 1994 HYSTERECTOMY 11/06/2019 ABDOMINAL RADICAL HYSTERECTOMY WITH BSO AND PELVIC LYMPH; DR. ZIYAD NORWOODA OTHER SURGICAL HISTORY Left 12/19/2019 Med Port POWER Regular Size OTHER SURGICAL HISTORY Left 11/07/2022 Percutaneous skeltal fixation femoral fracture TUBAL LIGATION 1992 Allergies Allergen Reactions Pollen Extract Unknown Medications Prior to Admission: albuterol HFA (PROVENTIL HFA, VENTOLIN HFA) 90 mcg/actuation inhaler Indications: Panlobular emphysema (HCC) Inhale 2 Puffs as instructed every 4 hours as needed for wheezing/shortness of breath. 18 g 5 08/06/2021 Active Nebulizers Indications: Chronic respiratory failure with hypoxia (HCC), Panlobular emphysema (HCC) Use as directed. 1 Each 0 06/22/2022 Active albuterol (PROVENTIL) 2.5 mg /3 mL (0.083 %) nebulizer solution INHALE 3 ML VIA NEBULIZER EVERY 4 HOURS NEEDED FOR WHEEZE OR FOR SHORTNESS OF BREATH 90 mL 1 06/22/2022 Active buPROPion XL (WELLBUTRIN XL) 150 mg 24 hr tablet Indications: Major depression, recurrent, chronic (HCC) TAKE 1 TABLET BY MOUTH EVERY DAY 90 tablet 3 07/30/2022 Active fluticasone-vilanterol (BREO ELLIPTA) 200-25 mcg/dose inhaler Indications: Pulmonary emphysema, unspecified emphysema type (HCC) Inhale 1 Inhalation as instructed once daily. 60 Each 11/08/2022 05/07/2023 Active fluticasone (FLONASE) 50 mcg/actuation nasal spray Use 2 Sprays in each nostril once daily. 1 Each 11 11/08/2022 11/08/2023 Active atorvastatin (LIPITOR) 40 mg tablet Indications: Hyperlipidemia, mixed TAKE 1 TABLET BY MOUTH EVERY DAY AT NIGHT 90 tablet 3 2022ctive tiotropium bromide (SPIRIVA RESPIMAT) 2.5 mcg/actuation inhaler Indications: Pulmonary emphysema, unspecified emphysema type (HCC) INHALE 2 PUFFS BY MOUTH ONCE DAILY DIRECTED 3 Each 3 11/24/2022 Active alendronate (FOSAMAX) 70 mg tablet Indications: Age-related osteoporosis without current pathological fracture TAKE 1 TABLET BY MOUTH ONE TIME A WEEK. 12 tablet 3 12/10/2022 12/10/2023 Active DULoxetine (CYMBALTA) 30 mg capsule Indications: Moderate episode of recurrent major depressive disorder (HCC) Take 1 capsule by mouth once daily for 14 days. 14 capsule 0 01/14/2023 Active diclofenac (VOLTAREN ARTHRITIS PAIN) 1 % topical gel Indications: Compression fracture of body of thoracic vertebra (HCC), Other closed nondisplaced fracture of proximal end of right humerus with routine healing, subsequent encounter Apply 2 g to affected area four times daily. 200 g 5 01/14/2023 Active oxyCODONE-acetaminophen (PERCOCET) 5-325 mg tablet Indications: Compression fracture of body of thoracic vertebra (HCC), Other closed nondisplaced fracture of proximal end of right humerus with routine healing, subsequent encounter Take 1 tablet by mouth every 4 hours as needed for pain for up to 30 days. 134 tablet 0 02/07/2023 03/09/2023 Active DULoxetine (CYMBALTA) 60 mg capsule Indications: Moderate episode of recurrent major depressive disorder (HCC) Take 1 capsule by mouth once daily. 90 capsule 0 02/07/2023 05/08/2023 Active cyclobenzaprine (FLEXERIL) 5 mg tablet Indications: Compression fracture of body of thoracic vertebra (HCC), Other closed nondisplaced fracture of proximal end of right humerus with routine healing, subsequent encounter Take 1 tablet by mouth two times a day as needed. 90 tablet 0 02/07/2023 05/08/2023 Active QUEtiapine (SEROQUEL) 100 mg tablet TAKE 2 TABLETS BY MOUTH AT BEDTIME NEEDED 180 tablet 1 02/07/2023 Active QUEtiapine (SEROQUEL) 100 mg tablet Take 2 tablets by mouth at bedtime as needed. 180 tablet 1 09/15/2022 02/07/2023 Discontinued oxyCODONE-acetaminophen (PERCOCET) 5-325 mg tablet Indications: Compression fracture of body of thoracic vertebra (HCC), Other closed nondisplaced fracture of proximal end of right humerus with routine healing, subsequent encounter Take 1 tablet by mouth every 4 hours as needed for pain for up to 30 days. 134 tablet 0 01/11/2023 02/06/2023 Discontinued DULoxetine (CYMBALTA) 60 mg capsule Indications: Moderate episode of recurrent major depressive disorder (HCC) Take 1 capsule by mouth once daily. 30 capsule 0 01/14/2023 02/06/2023 Discontinued cyclobenzaprine (FLEXERIL) 5 mg tablet Indications: Compression fracture of body of thoracic vertebra (HCC), Other closed nondisplaced fracture of proximal end of right humerus with routine healing, subsequent encounter Take 1 tablet by mouth two times a day as needed. 30 Current Outpatient Medications Medication Instructions albuterol 108 (90 Base) MCG/ACT inhaler 2 puffs, Inhalation, Every 4 hours PRN alendronate (FOSAMAX) 70 mg, Oral, Weekly aspirin 81 mg, Oral atorvastatin (Lipitor) 40 MG tablet 1 tablet, Oral, Nightly buPROPion XL (WELLBUTRIN XL) 150 mg, Oral, Daily calcium carbonate-cholecalciferol (Oyster Shell) 250-3.125 MG-MCG tablet 1 tablet, Oral clonazePAM (KlonoPIN) 0.5 MG tablet 1 tablet, Oral, Nightly diphenhydrAMINE (SOMINEX) 25 mg, Oral fluticasone (Flonase) 50 MCG/ACT nasal spray 2 sprays, Does not apply, Daily Fluticasone Furoate-Vilanterol (Breo Ellipta) 200-25 MCG/ACT aerosol powder 1 puff, Inhalation, Daily gabapentin (Neurontin) 600 MG tablet 1 tablet, Oral, Daily magnesium oxide (MAG-OX) 400 mg, Daily montelukast (SINGULAIR) 10 mg, Oral, Nightly nicotine (Nicoderm, Step 1) 21 MG/24HR patch 1 patch, TransDERmal, Daily potassium chloride CR (Klor-Con M20) 20 MEQ ER tablet 2 tablets, Oral, Daily QUEtiapine (SEROQUEL) 200 mg, Oral, Nightly sertraline (ZOLOFT) 200 mg, Oral, Daily tiotropium (Spiriva Respimat) 2.5 MCG/ACT inhaler 2 puffs, Inhalation, Daily Zinc 50 mg, Oral Social History Social History Tobacco Use Smoking status: Former Packs/day: 1.5 Types: Cigarettes Quit date: 09/20/2011 Years since quittin.4 Smokeless tobacco: Never Tobacco comments: Quit smoking: pt states she quit 4-5 years ago Substance Use Topics Alcohol use: Not Currently Comment: Approx once a year She vapes nicotine Family History Family History Problem Relation Name Age of Onset Colon cancer Neg Hx Ovarian cancer Neg Hx Cancer Mother breast- to liver Cancer Sister breast Cancer Father lung to brain No Known Problems Brother Uterine cancer Neg Hx Physical Exam Temp (24hrs), Av.8 C (98.2 F), Min:36.8 C (98.2 F), Max:36.8 C (98.2 F) Body mass index is 22.47 kg/m .BMI Classification: Normal Weight (BMI 18.5-24.9) BP (!) 153/86 (BP Location: Left arm, Patient Position: Lying) Pulse 86 Temp 36.8 C (98.2 F) (Oral) Resp 16 Ht 5' 5" (1.651 m) Wt 135 lb (61.2 kg) SpO2 98% BMI 22.47 kg/m Pulse Ox: HuH1Fod: 98 % Min: 98 % Max: 98 % Supplemental O2: O2 Flow Rate (L/min): 3 L/min General appearance: She is alert and oriented answering questions well resting in bed no distress HEENT: Normal cephalic, atraumatic without obvious deformity. Pupils equal, round, and reactive to light. Extra ocular muscles intact. Conjunctivae/corneas clear. Neck: Supple, with full range of motion. No jugular venous distention. Trachea midline. No lymphadenopathy. Respiratory: Normal respiratory effort. Clear to auscultation, bilaterally without Rales/Wheezes/Rhonchi. Cardiovascular: Regular rate and rhythm with normal S1/S2 without murmurs, rubs or gallops. Abdomen: Soft, non-tender, non-distended with normal bowel sounds. No rebound or guarding. Musculoskeletal: Her pain is located in her mid lumbar area. There is no particular areas of point tenderness There is no bruising. Except on the lateral side of her left shoulder Skin: Skin color, texture, turgor normal. No rashes or lesions. Neurologic: Neurovascularly intact without any focal sensory/motor deficits. Cranial nerves grosslyintact. Labs Admission on 02/13/2023 Component Date Value SODIUM 02/13/2023 137 POTASSIUM 02/13/2023 3.7 CHLORIDE 02/13/2023 98 CARBON DIOXIDE 02/13/2023 32 (H) UREA NITROGEN 02/13/2023 13 CREATININE 02/13/2023 0.50 (L) GLUCOSE 02/13/2023 96 CALCIUM 02/13/2023 9.1 ANION GAP 02/13/2023 7 eGFR 02/13/2023 >90.0 Auto WBC 02/13/2023 11.1 (H) RBC 02/13/2023 3.86 Hemoglobin 02/13/2023 11.9 Hematocrit 02/13/2023 36.2 MCV 02/13/2023 93.9 MCH 02/13/2023 30.7 MCHC 02/13/2023 32.7 RDW 02/13/2023 13.8 Platelets 02/13/2023 212 MPV 02/13/2023 7.3 (L) nRBC 02/13/2023 0.0 Neutrophils Relative 02/13/2023 88.7 (H) Lymphocytes Relative 02/13/2023 6.4 (L) Monocytes Relative 02/13/2023 3.7 Eosinophils Relative 02/13/2023 0.9 (L) Basophils Relative 02/13/2023 0.3 Neutrophils Absolute 02/13/2023 9.9 (H) Lymphocytes Absolute 02/13/2023 0.7 (L) Monocytes Absolute 02/13/2023 0.4 Eosinophils Absolute 02/13/2023 0.1 Basophils Absolute 02/13/2023 0.0 EKG Encounter Date: 11/06/22 ECG 12 lead Result Value Heart Rate 121 QRSD Interval 98 QT Interval 395 QTC Interval 473 P [place] 69 QRS [place] -35 T Wave [place] -12 MI Interval 152 Impression Sinus rhythm Inferior infarct, old Electronically Signed On 11-07-2022 1:11:05 EDT by Melva Hull Assessment/Plan and Medical Decision Making Fall with back and shoulder pain Lumbar xray "L2-L4 levels, mild and new in the L2 and L4 levels and moderate in the L3 level, " She is having pain in her lumbar back only No radiating symptoms no numbness weakness urinary incontinence Orthopedics will see and evaluate her for this For any possible further imaging or possible intervention She is 67 years old she reports osteoporosis or osteopenia but states she has not had a bone density done in 5 or 6 years will likely need to repeat bone density scan done She does supplement with vitamin D and take Fosamax at home. If new bone density study does show significant osteopenia or osteoporosis. May need to consider alternate therapies to treat as she already had earlier hip fracture this year. Patient did have left shoulder pain as well and there is a bruise present on exam however x-ray left shoulder is negative for fracture [facility] orthopedics has seen her in the past seeing her engineering technologist for the For now I will continue with oral pain control with Percocet we will add IV medication if needed Activity per orthopedics copd She is on home oxygen We will continue this she is not significantly wheezing on exam we will provide as needed breathingtreatments we will not treat for an acute exacerbation I reconciled the rest of her home medications I will continue her aspirin and statin Wellbutrin and Seroquel that she is on at home patient also takes Fosamax which can be handled as an outpatient vitamin D at home but I am unsure of the dose Per her PDMP she has not received prescription for benzodiazepines recently Patient would like evaluation for possible rehab at discharge either inpatient rehab or ECF, and case management will need to get involved to see what she qualifies for -DVT prophylaxis: [x] Lovenox [] Heparin [] SCDs [x] Encourage ambulation [] Already on Anticoagulation [] Pharmocologic prophylaxis on hold to due risk bleed/procedure 02/13/2023 Gonzalo Deluca [id number] Any scheduled follow up appointments Future Appointments Date Time Provider Department Center 03/09/2023 11:15 AM Freddy Person MD [facility] None 04/22/2023 1:00 PM Sally Rocha APRN - [facility] None Extended Emergency Contact Information Primary Emergency Contact: Karishma Deluca Address: [address] [place] [address] [place] [address] [facility] Mobile Relation: Daughter Secondary Emergency Contact: Jace Deluca Mobile Relation: Son Portions of this note may be electronically transcribed. Please forward a copy of this H&P to the primary care physician. documented in this [place] [id number] Emergency department Note* Anahi Harvey RN - 02/13/2023 6:59 PM EST Bed: 02 Expected date: Expected time: Means of arrival: Comments: Jean Harvey RN 02/13/23 [id number] Emergency department Note* Nancy Salas RN - 02/13/2023 6:59 PM EST Bed: 16 Expected date: Expected time: Means of arrival: Comments: Room 2 Nancy Salas RN 02/13/232203 [place] [id number] Emergency department Triage note* VERA Harper - 02/13/2023 6:59 PM EST Complaint of fall today injuring lower back and left shoulder. [place] [id number] Physician Emergency department Note* Lorenzo Orozco MD - 02/13/2023 6:59 PM EST EMERGENCY DEPARTMENT ENCOUNTER Pt Name: Gonzalo Deluca Birthdate 1955 Date of evaluation: 02/13/2023 ED Provider: Lorenzo Orozco MD CHIEF COMPLAINT Chief Complaint Patient presents with Fall Complaint of a fall today getting off of a toilet injuring lower back and pelvis pain. Pt also states her left shoulder hurts. Denies LOC or blood thinners. Pt is alert and oriented at this time. HISTORY OF PRESENT ILLNESS (Location/Symptom, Timing/Onset, Context/Setting, Quality, Duration, Modifying Factors, Severity) Note limiting factors. I wore appropriate PPE for the entirety of this encounter. HPI Gonzalo Deluca is a 67 y.o. who presents to the emergency department chief complaint of left shoulder and lower back pain. Patient reportedly tripped and fell in her bathroom. She denies hitting her head or loss of consciousness. Denies any head or neck pain. Denies being on any blood thinners. Denies any chest pain or abdominal pain. Brought in by EMS. Reportedly on 2 L of oxygen via nasal cannula chronically. States that happened about 20 minutes prior to presentation. Nursing Notes were reviewed. REVIEW OF SYSTEMS Review of Systems Respiratory: Negative for shortness of breath. Cardiovascular: Negative for chest pain. Gastrointestinal: Negative for abdominal pain. Genitourinary: Negative for flank pain and hematuria. Musculoskeletal: Positive for back pain. Negative for neck pain. Skin: Negative for wound. Neurological: Negative for syncope and headaches. Hematological: Does not bruise/bleed easily. Pertinent positives and negatives as per HPI PAST MEDICAL HISTORY Past Medical History: Diagnosis Date Abnormal stress test Allergic rhinitis Arthritis Asthma Bronchitis Cancer (CMS/HCC) ([facility]) skin Cervical cancer ([facility]) ([facility]) Chest pain COPD (chronic obstructive pulmonary disease) ([facility]) USE OXYGEN 3 L AT NIGHT DDD (degenerative disc disease), cervical Defect, retina, with detachment right DJD (degenerative joint disease), lumbar Emphysema lung ([facility]) Former smoker Hematuria SCHEDULED FOR THE PROCEDURE /SURGERY ON 02/11/2017 Hypokalemia Lung nodules Osteoporosis Palpitations Pneumonia Recurrent major depression ([facility]) Sciatica Thoracic compression fracture ([facility]) Vitamin D deficiency SURGICAL HISTORY Past Surgical History: Procedure Laterality Date CYSTOSCOPY 01/12/2017 OFFICE PROCEDURE CYSTOSCOPY 02/11/2017 C&P bladder biopsy EYE SURGERY detached retina 1994 HYSTERECTOMY 11/06/2019 ABDOMINAL RADICAL HYSTERECTOMY WITH BSO AND PELVIC LYMPH; DR. ZIYAD MENENDEZ [facility] OTHER SURGICAL HISTORY Left 12/19/2019 Med Port POWER Regular Size OTHER SURGICAL HISTORY Left 11/07/2022 Percutaneous skeltal fixation femoral fracture TUBAL LIGATION 1992 CURRENT MEDICATIONS Previous Medications ALBUTEROL 108 (90 BASE) MCG/ACT INHALER Inhale 2 puffs every 4 hours as needed. ALENDRONATE (FOSAMAX) 70 MG TABLET Take 70 mg by mouth once a week. ASPIRIN 81 MG EC TABLET Take 81 mg by mouth. ATORVASTATIN (LIPITOR) 40 MG TABLET Take 1 tablet by mouth Nightly. BUPROPION XL (WELLBUTRIN XL) 150 MG 24 HR TABLET Take 150 mg by mouth in the morning. CALCIUM CARBONATE-CHOLECALCIFEROL (OYSTER SHELL) 250-3.125 MG-MCG TABLET Take 1 tablet by mouth. CLONAZEPAM (KLONOPIN) 0.5 MG TABLET Take 1 tablet by mouth Nightly. DIPHENHYDRAMINE (SOMINEX) 25 MG TABLET Take 25 mg by mouth. FLUTICASONE (FLONASE) 50 MCG/ACT NASAL SPRAY 2 sprays in the morning. FLUTICASONE FUROATE-VILANTEROL (BREO ELLIPTA) 200-25 MCG/ACT AEROSOL POWDER Inhale 1 puff daily. GABAPENTIN (NEURONTIN) 600 MG TABLET Take 1 tablet by mouth daily. MAGNESIUM OXIDE (MAG-OX) 400 MG TABLET 400 mg daily. MONTELUKAST (SINGULAIR) 10 MG TABLET Take 10 mg by mouth Nightly. NICOTINE (NICODERM, STEP 1) 21 MG/24HR PATCH Place 1 patch on the skin daily. Do not start before November 09, 2022. POTASSIUM CHLORIDE CR (KLOR-CON M20) 20 MEQ ER TABLET Take 2 tablets by mouth daily. QUETIAPINE (SEROQUEL) 100 MG TABLET Take 200 mg by mouth Nightly. SERTRALINE (ZOLOFT) 100 MG TABLET Take 200 mg by mouth in the morning. TIOTROPIUM (SPIRIVA RESPIMAT) 2.5 MCG/ACT INHALER Inhale 2 puffs in the morning. ZINC 50 MG CAPSULE Take 50 mg by mouth. ALLERGIES Pollen extract FAMILY HISTORY Family History Problem Relation Name Age of Onset Colon cancer Neg Hx Ovarian cancer Neg Hx Cancer Mother breast- to liver Cancer Sister breast Cancer Father lung to brain No Known Problems Brother Uterine cancer Neg Hx SOCIAL HISTORY Social History Socioeconomic History Marital status: Tobacco Use Smoking status: Former Packs/day: 1.5 Types: Cigarettes Quit date: 09/20/2011 Years since quittin.4 Smokeless tobacco: Never Tobacco comments: Quit smoking: pt states she quit 4-5 years ago Vaping Use Vaping Use: Every day Substance and Sexual Activity Alcohol use: Not Currently Comment: Approx once a year Drug use: No Social Determinants of Health Intimate Partner Violence: Not At Risk (05/21/2022) Humiliation, Afraid, Rape, and Kick questionnaire Fear of Current or Ex-Partner: No Emotionally Abused: No Physically Abused: No Sexually Abused: No SCREENINGS PHYSICAL EXAM ED Triage Vitals [02/13/231904] Temp Heart Rate Resp BP 36.8 C (98.2 F) 86 16 (!) 153/86 SpO2 Temp Source Heart Rate Source Patient Position 98 % Oral -- Lying BP Location FiO2 (%) Left arm -- Physical Exam Vitals and nursing note reviewed. Constitutional: General: She is not in acute distress. Comments: 67-year-old female HENT: Head: Normocephalic and atraumatic. Eyes: Extraocular Movements: Extraocular movements intact. Pupils: Pupils are equal, round, and reactive to light. Neck: Comments: No cervical spinal tenderness Cardiovascular: Rate and Rhythm: Normal rate. Pulses: Normal pulses. Pulmonary: Effort: Pulmonary effort is normal. Breath sounds: Normal breath sounds. Chest: Chest wall: No tenderness. Abdominal: Palpations: Abdomen is soft. Tenderness: There is no abdominal tenderness. Musculoskeletal: Comments: Left lateral proximal shoulder tenderness. Lumbar and sacral spinal tenderness. No step-offs. Pelvis stable to anterior and lateral compression. No thoracic spinal tenderness. No lower extremity tenderness to gross palpation. Skin: General: Skin is warm and dry. Neurological: General: No focal deficit present. Mental Status: She is alert. Sensory: No sensory deficit. Motor: No weakness. Coordination: Coordination normal. DIAGNOSTIC RESULTS RADIOLOGY (Per Emergency Physician): Interpretation per the Radiologist below, if available at the time of this note: XR shoulder 2+ views left (Results Pending) XR lumbar spine 2 or 3 views (Results Pending) LABS: Labs Reviewed - No data to display All other labs were within normal range or not returned as of this dictation. EMERGENCY DEPARTMENT COURSE and DIFFERENTIAL DIAGNOSIS/MDM: Vitals: Vitals: 02/13/231904 BP: (!) 153/86 BP Location: Left arm Patient Position: Lying Pulse: 86 Resp: 16 Temp: 36.8 C (98.2 F) TempSrc: Oral SpO2: 98% Weight: 61.2 kg (135 lb) Height: 1.651 m (5' 5") Medications acetaminophen (Tylenol) tablet 1,000 mg (has no administration in time range) oxyCODONE (Roxicodone) immediate release tablet 5 mg (has no administration in time range) Evaluated for left shoulder and lower back pain after reported mechanical fall. Denies syncope. No signs of head trauma. Denies head or neck pain. Treated symptomatically for pain with oral acetaminophen oxycodone. Denies take any medications prior to presentation. Patient hemodynamically stable. Evaluated with left shoulder and lumbar x-rays. Patient has lumbar compression fractures. Discussed continued symptomatic treatment and discharged home. Patient and family expressed concerns about patient having multiple falls and feels she would be safe for her at a facility. Patient will be admitted for physical therapy assessment and disposition. ED Course as of 02/17/23 0847 [place] Feb 13, [id number] XR shoulder 2+ views left No proximal humerus fracture on my review of left shoulder x-ray [SP] 2030 XR shoulder 2+ views left IMPRESSION: 1. No acute osseous abnormality. 2. Remote posttraumatic and mild degenerative change. [SP] 2030 XR lumbar spine 2 or 3 views IMPRESSION: 1. Multilevel, possible insufficiency compressive changes in the L2-L4 levels, mild and new in the L2 and L4 levels and moderate in the L3 level, similar to comparison. No other, acute osseous abnormality. 2. Degenerative change. [SP] 2049 Family is present on reevaluation. Patient and family are requesting placement back in rehab versus [facility]p facility. They states they are concerned about patient's falling at home. Patient is agreeable. [SP] ED Course User Index [SP] Lorenzo Orozco MD Diagnoses as of 02/17/23846 Lumbar compression fracture, closed, initial encounter (HCC) Fall, initial encounter Multiple falls MDM elements: The patient presented with chief complaint of left shoulder and lower back pain. The differential diagnosis associated with this patient's presentation includes contusion, fracture, dislocation, sprain, strain. Our workup consisted of ordering/reviewing: Shoulder and lumbosacral x-ray. To aid in management, I performed an independent interpretation of Xray(s) . I discussed their care with Admitting team and family. The patient will be Admitted. Patient is in agreement with this plan. PROCEDURES: Unless otherwise noted below, none Procedures FINAL IMPRESSION 1. Lumbar compression fracture, closed, initial encounter (HCC) 2. Fall, initial encounter 3. Multiple falls DISPOSITION PATIENT REFERRED TO: No follow-up provider specified. DISCHARGE MEDICATIONS: New Prescriptions No medications on file (Comment: Please note this report has been produced using speech recognition software and may contain errors related to that system including errors in grammar, punctuation, and spelling, as well as words and phrases that may be inappropriate. If there are any questions or concerns please feel freeto contact the dictating provider for clarification.) Lorenzo Orozco MD (electronically signed) Emergency Medicine Provider Lorenzo Orozco MD 02/17/23 0849 [id number] Miscellaneous Notes* Telephone Encounter - Whit Shay LPN - 02/08/2023 9:57 AM EST Request completed and faxed. * Telephone Encounter - Herminia Case MD - 02/08/2023 9:48 AM EST Done. * Telephone Encounter - Whit Shay LPN - 02/07/2023 2:59 PM EST Type of letter/form/fax request - Home Health Care Orders Plan of Care Certification Period- 01/28/23 to 03/28/[address] [facility] on 02/04/23 floor and placed on MD desk () for completion. Completed form needs to be faxed to [phone]. Route to [place] when form completed for processing documented [facility] Miscellaneous Notes* Telephone Encounter - Tate Weathers MA - 02/07/2023 2:00 PM EST Last appointment: 01/14/23 Next appointment: 03/11/23 Pharmacy verified in [facility]. Refill(s) requested: Requested Prescriptions Pending Prescriptions Disp Refills QUEtiapine (SEROQUEL) 100 mg tablet [Pharmacy Med Name: QUETIAPINE FUMARATE 100 MG TAB] 180 tablet 1 Sig: TAKE 2 TABLETS BY MOUTH AT BEDTIME NEEDED Order(s) pended. Please advise. Tate L Jasiel, MA, [employer] documented in this encounterVan [facility]11-14-2023 History of Present illness Narrative* Agustina Romero MA - 02/01/2023 11:01 AM EST POPULATION HEALTH NAVIGATION OUTREACH Action/FYI Called and left a message to call [phone], to discuss health maintenance items that are due. Sent My Chart message. Patient Identified by Name and : NO Outreach Outcome/Action Unable to reach patient: Left message Wixhart message sent Did you use a PCP flex slot to schedule this appointment? N/A Reason for Outreach Care Gap or Scheduling/Wellness visits Payer: Payor: [facility] MEDICARE / Plan: [facility] DUAL COMPLETE HMO POS SNP / Product Type: Medicare / Care Gap Reviewed:: Colorectal Cancer Screening Reminder: Reminder note to check Health Maintenance for items below Health Maintenance items due: Mammogram Screening Never done Colorectal Cancer Screening Never done RSV Vaccine(1 - 1-dose 60+ series) Never done Bone Density Screening Never done Lung Cancer Screening due on 10/14/2022 Navigation Signature: Agustina Romero MA February 01, 2023 11:02 AM documented in this encounterVan [facility]11-14-2023 Miscellaneous Notes* Telephone Encounter - Whit Shay LPN - 02/01/2023 9:07 AM EST Request completed and faxed. * Telephone Encounter - Whit Shay LPN - 01/31/2023 3:36 PM EST Type of letter/form/fax request - Home Health Care Orders Form received from [facility] on 01/28/23 floor and placed on MD desk () for completion. Completed form needs to be faxed to [phone]. Route to [place] when form completed for processing documented in this encounterVan [facility]11-09-2023 History of Present illness Narrative* Jo Chen MA - 01/27/2023 12:21 PM EST POPULATION HEALTH NAVIGATION OUTREACH Action/FYI Unable to leave Mychart message sent Mammogram Screening Never done Colorectal Cancer Screening Never done Patient Identified by Name and : NO Outreach Outcome/Action Unable to reach patient: Phone number not valid / voicemail full MyChart message sent Did you use a PCP flex slot to schedule this appointment? N/A Reason for Outreach Care Gap or Scheduling/Wellness visits Payer: Payor: [facility] MEDICARE / Plan: [facility] DUAL COMPLETE HMO POS SNP / Product Type: Medicare / Care Gap Reviewed:: Breast Cancer screening Colorectal Cancer Screening Reminder: Reminder note to check Health Maintenance for items below Health Maintenance items due: Mammogram Screening Never done Colorectal Cancer Screening Never done RSV Vaccine(1 - 1-dose 60+ series) Never done Bone Density Screening Never done Lung Cancer Screening due on 10/14/2022 Navigation Signature: Jo Chen MA January 27, 2023 12:21 PM documented in this encounterVan [facility]11-06-2023 Miscellaneous Notes* Telephone Encounter - Whit Shay LPN - 01/24/2023 3:12 PM EST Request completed and faxed. * Telephone Encounter - Herminia Case MD - 01/24/2023 3:06 PM EST Done. * Telephone Encounter - Whit Shay LPN - 01/24/2023 2:42 PM EST Type of letter/form/fax request - Home Health Care Orders Form received from [facility] on 01/21/23 floor and placed on MD desk () for completion. Completed form needs to be faxed to [phone]. Route to [place] when form completed for processing documented in this [facility]11-03-2023 Miscellaneous Notes* Telephone Encounter - Rayo Roman Ma - 01/21/2023 1:45 PM EDT Type of letter/form/fax request - Home Health Care Orders Form received from [facility] on 01/21/23 floor and placed on desk () for completion. Completed form needs to be faxed to [phone]. Route to [place] when form completed for processing documented in this encounterVan [facility]10-30-2023 Miscellaneous Notes* Telephone Encounter - Whit Shay LPN - 01/17/2023 6:06 PM EDT Request completed and faxed. * Telephone Encounter - Whit Shay LPN - 01/17/2023 10:35 AM EDT Type of letter/form/fax request - Home Health Care Orders Form received from [facility] on 01/15/23 floor and placed on desk () for completion. Completed form needs to be faxed to [phone]. Route to [place] when form completed for processing documented in this [facility]10-27-2023 Instructions* Patient Instructions* Herminia Case MD - 01/14/2023 4:22 PM EDT Reduce dose of sertraline to 100 mg for 2 weeks, at the same time start duloxetine 30 mg for 2 weeks. Then 1/2 tab of sertraline (50 mg ) x 2 weeks, at the same time start duloxetine 60 mg for 2 weeks. Then stop sertraline, continue 60 mg duloxetine. documented in this encounterVan [facility]10-27-2023 History of Present illness Narrative* Herminia Case MD - 01/14/2023 4:03 PM EDT Patient presents with: 6 Month Exam HPI: Gonzalo Deluca is a 67 year old female who presents to the office today for follow up. Chronic low back and hip pain Left femur fracture s/p ORIF on 11/07/2022 Cervical CA - TY Last pap 10/20/2022 - normal, HPV neg. S/p chemo, radiation Lung nodules - CT scan 09/2021 - severe emphysema, no new masses Overdue for mammogram, repeat CT scan Requesting cyclobenzaprine, voltaren gel Helps her hips, knees Pulmonary - dr. Tadeo - planning to schedule. Copd - emphysema - 2.5 liters oxygen continuous. Mood low, not motivated, not much benjie On sertraline 200 mg, not sure if really helping. REVIEW OF SYSTEMS: CONSTITUTIONAL: No fevers, chills, nightsweats, unintended weight loss HEENT: Denies frequent or severe heaches, nasal congestion/sinus symptoms, problematic allergy problems. EYES: No diplopia or blurry vision. CARDIOVASCULAR: No chest pain, dyspnea, palpitations, orthopnea, PND, ankle edema. PULM: No dyspnea, unexplained cough. GI: No dysphagia/odynophagia, problematic reflux, constipation, diarrhea, changes in stool habits, hematochezia, melena. : No new urinary complaints, including dysuria, gross hematuria or pyuria. NEURO: No new balance problems, peripheral weakness/paresthesias or numbness of concern. MUSC-SKEL: No new joint pain, swelling, or erythema. PSY: No concerns regarding depression, anxiety or panic. INTEGUMENTARY: No new skin changes (rash, new or changing mole, new growth) PAST MEDICAL HISTORY Diagnosis Date COPD (chronic obstructive pulmonary disease) (HCC) DDD (degenerative disc disease), lumbar Encounter for chronic pain management Major depression, recurrent, chronic (HCC) Osteoporosis Pulmonary nodule, right 2016 PAST SURGICAL HISTORY Procedure Laterality Date CYSTOSCOPY 01/12/2017 CYSTOSCOPY 02/11/2017 EYE SURGERY HX Right 1994 detached retina HIP SURGERY HX Left 10/2022 ORIF for fracture TUBAL LIGATION HX 1992 FAMILY HISTORY Problem Relation Age of Onset Breast Cancer Mother 65 other (lung cancer) Father Breast Cancer Sister 62 No Known Problems Brother other (negative genetic testing for breast CA) Daughter Social History Tobacco Use Smoking status: Former Packs/day: 1.50 Years: 69.00 Additional pack years: 0.00 Total pack years: 103.50 Types: Cigarettes Start date: 1971 Quit date: 2017 Years since quittin.8 Smokeless tobacco: Never Tobacco comments: vaping intermittently Vaping Use Vaping Use: Never used Substance Use Topics Alcohol use: No Drug use: No ACTIVE PROBLEM LIST Ddd (Degenerative Disc Disease), Lumbar Panlobular Emphysema (Hcc) Major Depression, Recurrent, Chronic (Hcc) Osteoporosis Pulmonary Nodule, Right Compression Fracture of Body of Thoracic Vertebra (Hcc) Obesity, Class I, Bmi 30-34.9 Chronic Midline Low Back Pain Without Sciatica Malignant Neoplasm of Exocervix (Hcc) Copd (Chronic Obstructive Pulmonary Disease) With Acute Bronchitis (Hcc) Chronic Respiratory Failure With Hypoxia (Hcc) Moderate Malnutrition (Hcc) ALLERGIES Allergen Reactions Seasonal Allergies Intolerance MEDICATIONS: oxyCODONE-acetaminophen (PERCOCET) 5-325 mg tablet Take 1 tablet by mouth every 4 hours as needed for pain for up to 30 days. alendronate (FOSAMAX) 70 mg tablet TAKE 1 TABLET BY MOUTH ONE TIME A WEEK. tiotropium bromide (SPIRIVA RESPIMAT) 2.5 mcg/actuation inhaler INHALE 2 PUFFS BY MOUTH ONCE DAILY DIRECTED atorvastatin (LIPITOR) 40 mg tablet TAKE 1 TABLET BY MOUTH EVERY DAY AT NIGHT fluticasone-vilanterol (BREO ELLIPTA) 200-25 mcg/dose inhaler Inhale 1 Inhalation as instructed once daily. fluticasone (FLONASE) 50 mcg/actuation nasal spray Use 2 Sprays in each nostril once daily. QUEtiapine (SEROQUEL) 100 mg tablet Take 2 tablets by mouth at bedtime as needed. buPROPion XL (WELLBUTRIN XL) 150 mg 24 hr tablet TAKE 1 TABLET BY MOUTH EVERY DAY Nebulizers Use as directed. albuterol (PROVENTIL) 2.5 mg /3 mL (0.083 %) nebulizer solution INHALE 3 ML VIA NEBULIZER EVERY 4 HOURS NEEDED FOR WHEEZE OR FOR SHORTNESS OF BREATH DULoxetine (CYMBALTA) 30 mg capsule Take 1 capsule by mouth once daily for 14 days. DULoxetine (CYMBALTA) 60 mg capsule Take 1 capsule by mouth once daily. cyclobenzaprine (FLEXERIL) 5 mg tablet Take 1 tablet by mouth two times a day as needed. diclofenac (VOLTAREN ARTHRITIS PAIN) 1 % topical gel Apply 2 g to affected area four times daily. albuterol HFA (PROVENTIL HFA, VENTOLIN HFA) 90 mcg/actuation inhaler Inhale 2 Puffs as instructed every 4 hours as needed for wheezing/shortness of breath. EXAM:BP 100/70 Pulse 83 Temp 36.4 C (97.6 F) (Temporal) Ht 164.1 cm (5' 4.61") Wt 62.1 kg (137 lb) SpO2 93% BMI 23.08 kg/m Last Wt 01/14/23 : 62.1 kg (137 lb) 09/15/22 : 61.1 kg (134 lb 11.2 oz) 08/06/21 : 58.8 kg (129 lb 9.6 oz) 02/02/21 : 59.8 kg (131 lb 12.8 oz) PHYSICAL EXAM: General Appearance: Well appearing, alert, in no acute distress, well-hydrated, well nourished.. Skin: Skin color, texture, turgor normal, no suspicious rashes or lesions. . Neck: Supple, no adenopathy; thyroid symmetric, normal size, no bruits. Lungs: Lungs clear to auscultation. No wheezing, rhonchi, rales. Heart: RRR without murmur, gallop, or rubs. No ectopy. Extremities: No deformities, edema, skin discoloration, clubbing or cyanosis. Good capillary refill. Neurologic: Gait not assessed, in wheelchair. ASSESSMENT/PLAN: 1. Compression fracture of body of thoracic vertebra (HCC) - ICD9: 805.2, ICD10: S22.000A (primary diagnosis) - continue percocet - CYCLOBENZAPRINE 5 MG TABLET - DICLOFENAC 1 % TOPICAL GEL 2. Family history of breast cancer - ICD9: V16.3, ICD10: Z80.3 - CONSULT TO MEDICAL GENETICS - CANCER 3. Malignant neoplasm of exocervix (HCC) - ICD9: 180.1, ICD10: C53.1 - CONSULT TO MEDICAL GENETICS - CANCER 4. Encounter for immunization - ICD9: V03.89, ICD10: Z23 - PNEUMOCOCCAL VACCINE (PREVNAR 20) 5. Moderate episode of recurrent major depressive disorder (HCC) - ICD9: 296.32, ICD10: F33.1 - start duloxetine, may help with chronic pain - stop sertraline - DULOXETINE 30 MG CAPSULE,DELAYED RELEASE - DULOXETINE 60 MG CAPSULE,DELAYED RELEASE 6. Panlobular emphysema (HCC) - ICD9: 492.8, ICD10: J43.1 7. Other closed nondisplaced fracture of proximal end of right humerus with routine healing, subsequent encounter - ICD9: V54.11, ICD10: S42.294D - CYCLOBENZAPRINE 5 MG TABLET - DICLOFENAC 1 % TOPICAL GEL 8. Moderate malnutrition (HCC) - ICD9: 263.0, ICD10: E44.0 - work on more protein, veggies. Herminia Case * Whit Shay LPN - 01/14/2023 3:59 PM EDT Mammogram Screening Never done Colorectal Cancer Screening Never done RSV Vaccine(1 - 1-dose 60+ series) Never done Pneumococcal Vaccine: 65+(2 - PCV) due on 03/11/2018 Bone Density Screening Never done Lung Cancer Screening due on 10/14/2022 Influenza Vaccine(1) due on 2022 documented in this encounterVan [facility]10-20-2023 Miscellaneous Notes* Telephone Encounter - Melva Juárez PA-C - 01/07/2023 3:21 PM EDT Noted. Melva Juárez PA-C * Telephone Encounter - Teressa Macario - 01/07/2023 1:21 PM EDT [facility] with [facility] calling to update that patient cancelled her appointment today becauseshe is not feeling well. Any questions, please call Lake @ [phone] documented in this encounterVan [facility]ert [facility] Hospital10-18-2023 Miscellaneous Notes* Telephone Encounter - Melva Juárez PA-C - 01/05/2023 5:12 PM EDT Noted. Melva Juárez PA-C * Telephone Encounter - Rayo Roman Ma - 01/05/2023 4:32 PM EDT IDANIAI * Telephone Encounter - Teressa Macario - 01/05/2023 12:17 PM EDT Dianne from [facility] calling today to update that patient missed appointment today because she does not feel well. Patient is asking to hold off therapy until Tuesday. documented in this encounterVan [facility]ert [facility]10-12-2023 Miscellaneous Notes* Telephone Encounter - Whit Shay LPN - 12/30/2022 11:28 AM EDT Request completed and faxed. * Telephone Encounter - Herminia Case MD - 12/30/2022 11:18 AM EDT Done. * Telephone Encounter - Whit Shay LPN - 12/30/2022 9:28 AM EDT Type of letter/form/fax request - Home Health Care Orders Form received from [facility] on 12/29/22 floor and placed on MD desk () for completion. Completed form needs to be faxed to [phone]. Route to [place] when form completed for processing documented in this encounterVan [facility]10-11-2023 Miscellaneous Notes* Telephone Encounter - Whit Shay LPN - 12/29/2022 8:43 AM EDT Request completed and faxed. * Telephone Encounter - Whit Shay LPN - 12/28/2022 2:00 PM EDT Type of letter/form/fax request - Home Health Care Orders Form received from [facility] on 12/27/22 floor and placed on MD desk () for completion. Completed form needs to be faxed to [phone]. Route to [place] when form completed for processing documented in this encounterVan [facility]10-09-2023 Miscellaneous Notes* Telephone Encounter - Whit Shay LPN - 12/27/2022 3:41 PM EDT Request completed and faxed. * Telephone Encounter - Whit Shay LPN - 12/22/2022 8:26 AM EDT Type of letter/form/fax request - Home Health Care Orders Form received from [facility] on 12/21/22 floor and placed on MD desk () for completion. Completed form needs to be faxed to [phone]. Route to [place] when form completed for processing documented in this encounterVan [facility]ert [facility] Hospital09-28-2023 Miscellaneous Notes* Telephone Encounter - Parul Sanderson OCCA - 12/16/2022 2:11 PM EDT Last appointment: 09/15/22 Next appointment: 01/14/23 Pharmacy verified in [facility]. Refill(s) requested: Requested Prescriptions Pending Prescriptions Disp Refills oxyCODONE-acetaminophen (PERCOCET) 5-325 mg tablet 134 tablet 0 Sig: Take 1 tablet by mouth every 4 hours as needed for pain for up to 30 days. Order(s) pended. Please advise,thank you. Parul GOMES December 16, 2022 2:12 PM documented in this encounterVan Wert [facility] Hospital09-23-2023 Miscellaneous Notes* Telephone Encounter - Whit Shay LPN - 12/11/2022 8:37 AM EDT Home care Certification Form 485 received from [facility]. For cert dates 11/29/22 to 01/27/23 that were signed on 12/07/22. Recertification Patient's home health 485 form / care plan for stated certification period reviewed and signed. Relevant medical records were reviewed. No changes were indicated documented in this encounterVan Wert [facility] Hospital09-22-2023 Miscellaneous Notes* Telephone Encounter - Cayden Acevedo - 12/10/2022 3:31 PM EDT Last appointment: 09.15.2022 Next appointment: 01.14.2023 Pharmacy verified in [facility]. Refill(s) requested: Requested Prescriptions Pending Prescriptions Disp Refills alendronate (FOSAMAX) 70 mg tablet [Pharmacy Med Name: ALENDRONATE SODIUM 70 MG TAB] 12 tablet 3 Sig: TAKE 1 TABLET BY MOUTH ONE TIME A WEEK. Order(s) pended. Please advise. Cayden Acevedo CMA documented in this encounterVan Wert [facility] Hospital09-21-2023 Miscellaneous Notes* Telephone Encounter - Whit Shay LPN - 12/09/2022 2:57 PM EDT Request completed and faxed. * Telephone Encounter - Herminia Case MD - 12/09/2022 2:49 PM EDT Done. * Telephone Encounter - Whit Shay LPN - 12/09/2022 2:16 PM EDT Type of letter/form/fax request - Home Health Care Orders Form received from [facility] on 12/07/22 floor and placed on MD desk () for completion. Completed form needs to be faxed to [phone]. Route to [place] when form completed for processing documented in this encounterVan Wert [facility] Hospital09-21-2023 History of Present illness Narrative* Silvia Trejo Ma - 12/09/2022 10:45 AM EDT Spoke with patient. Patient states that she will complete it and send it in. documented in this encounterVan Wert [facility] Hospital09-19-2023 Miscellaneous Notes* Telephone Encounter - Whit Shay LPN - 12/07/2022 4:19 PM EDT Request completed and faxed. * Telephone Encounter - Herminia Case MD - 12/07/2022 4:01 PM EDT Done. * Telephone Encounter - Whit Shay LPN - 12/07/2022 8:50 AM EDT Type of letter/form/fax request - Home Health Care Orders Form received from [facility] on 12/03/22 floor and placed on MD desk () for completion. Completed form needs to be faxed to [phone]. Route to [place] when form completed for processing documented in this encounterVan Wert [facility] Hospital09-12-2023 Miscellaneous Notes* Telephone Encounter - Whit Shay LPN - 11/30/2022 9:33 AM EDT Called Leola from [facility] and relayed message below. She verbalized understanding. Whit Shay LPN * Telephone Encounter - Herminia Case MD - 11/29/2022 7:19 PM EDT yes * Telephone Encounter - Jessica Castro - 11/29/2022 4:41 PM EDT Leola Villanueva from [facility] is calling to confirm that Dr. Case will follow patient for home health care. Please call back to [phone] documented in this encounterVan Wert [facility] Hospital09-05-2023 Miscellaneous Notes* Telephone Encounter - Simran Prasad Ma - 11/23/2022 7:49 PM EDT Date of last office visit : 09/15/2022 Date of next office visit : 01/14/2023 Pharmacy verified in [facility]. Refill(s) requested: Requested Prescriptions Pending Prescriptions Disp Refills SPIRIVA RESPIMAT 2.5 mcg/actuation inhaler [Pharmacy Med Name: SPIRIVA RESPIMAT 2.5 MCG INH] 3 Sig: INHALE 2 PUFFS BY MOUTH ONCE DAILY DIRECTED Order(s) pended. Please advise. Simran Prasad Ma, CMA documented in this encounterVan Wert [facility] Hospital09-01-2023 Miscellaneous Notes* Telephone Encounter - Estee Amor LPN - 2022 4:01 PM EDT Pharmacy verified in [facility] Patient has been identified by name and date of : Yes Patient aware RX will be sent to pharmacy. No need to notify patient. Pharmacy phones for refill(s): Requested Prescriptions Pending Prescriptions Disp Refills atorvastatin (LIPITOR) 40 mg tablet [Pharmacy Med Name: ATORVASTATIN 40 MG TABLET] 90 tablet 3 Sig: TAKE 1 TABLET BY MOUTH EVERY DAY AT NIGHT Date of last office visit : 09/15/2022 Date of next office visit : 01/14/2023 Last 2 Encounter Wt Readings: Date: Wt: 09/15/2022 61.1 kg (134 lb 11.2 oz) 08/06/2021 58.8 kg (129 lb 9.6 oz) Cholesterol: Triglyceride (mg/dL) Date Value 09/15/2022 150 12/07/2018 48 HDL Cholesterol (mg/dL) Date Value 09/15/2022 54 12/07/2018 61 LDL Cholesterol (mg/dL) Date Value 09/15/2022 85 12/07/2018 88 ALT (U/L) Date Value 09/15/2022 12 Non HDL Cholesterol (mg/dL) Date Value 09/15/2022 115 12/07/2018 98 Please advise. Estee Amor LPN documented in this encounterVan Wert [facility] Hospital08-31-2023 Miscellaneous Notes* Telephone Encounter - Madison Ceja - 11/18/2022 1:04 PM EDT Patient scheduled for sooner appointment * Telephone Encounter - Herminia Case MD - 11/18/2022 12:50 PM EDT Needs sooner appt for pain med refills. * Telephone Encounter - Parul Sanderson OCCA - 11/17/2022 12:54 PM EDT Last appointment: 09/15/22 Next appointment: 03/17/23 Pharmacy verified in [facility]. Refill(s) requested: Requested Prescriptions Pending Prescriptions Disp Refills oxyCODONE-acetaminophen (PERCOCET) 5-325 mg tablet 134 tablet 0 Sig: Take 1 tablet by mouth every 4 hours as needed for pain for up to 30 days. Order(s) pended. Please advise,thank you. Parul GOMES November 17, 2022 12:55 PM documented in this encounterVan Wert County Hospital08-28-2023 Miscellaneous Notes* Telephone Encounter - Maria Alejandra Reno MA - 11/15/2022 1:29 PM EDT Pharmacy verified in [facility] Patient has been identified by name and date of : Yes Patient aware RX will be sent to pharmacy. No need to notify patient. Patient phones for refill(s): Requested Prescriptions Pending Prescriptions Disp Refills cyclobenzaprine (FLEXERIL) 5 mg tablet [Pharmacy Med Name: CYCLOBENZAPRINE 5 MG TABLET] 30 tablet 2 Sig: TAKE 1 TABLET BY MOUTH TWICE A DAY NEEDED Date of last office visit : 09/15/2022 Date of next office visit : 03/17/2023 Last 2 Encounter Wt Readings: Date: Wt: 09/15/2022 61.1 kg (134 lb 11.2 oz) 08/06/2021 58.8 kg (129 lb 9.6 oz) Not applicable Please advise. Maria Alejandra Reno MA documented in this encounterVan Wert County Hospital08-21-2023 Note* Care Coordination - SATURNINO Garcia - 11/08/2022 2:29 PM EDT S/W, follow up Patient discharged to [facility]. Transport set via [facility] at 430p. associate professor of communication provided report number. I did visit patient in room to notify. Patient and myself did notify daughter karishma via speaker phone of transport this evening. [phone]* Care Coordination - SATURNINO Garcia - 11/08/2022 2:29 PM EDT S/W, follow up Patient discharged to [facility]. Transport set via [facility] at 430p. associate professor of communication provided report number. I did visit patient in room to notify. Patient and myself did notify daughter karishma via speaker phone of transport this evening. [facility] [phone] Miscellaneous Notes* Care Coordination - SATURNINO Garcia - 11/08/2022 2:29 PM EDT S/W, follow up Patient discharged to [facility]. Transport set via [facility] at 430p. associate professor of communication provided report number. I did visit patient in room to notify. Patient and myself did notify daughter karishma via speaker phone of transport this evening. * Care Coordination - Unknown Case Management - 11/08/2022 1:57 PM EDT Patient Choice Patient Name: GONZALO DELUCA Date of : 1955 All Providers Sent Referral Name: [facility] Phone: [phone] Address: [address] [place] [address] * Care Coordination - Phillip Gurrola RN - 11/08/2022 11:20 AM EDT Tasked SALAD [employer]F to submit for auth for [facility]. . * Care Coordination - Phillip Gurrola RN - 11/08/2022 6:59 AM EDT Images from the original note were not included. Care Management Progress Note Awaiting therapy evals and recommendations. Per careport. [facility] is able to accept. Will need insurance auth. Did send message to them to determine if would have bed available tomorrow. Labs stable this morning. Pain 5-8. Discharge plan snf Discharge Milestones and Delays Expected Date/Time: 11/08/[address] discharge order Complete med reconciliation Case mgmt discharge readiness Clinical Stability Diagnsotic Workup Expected Discharge History Expected Date/Time Set By Reviewed At 11/08/2022 Austyn Mccann DO 11/06/2022 4:18 PM 11/08/2022 Austyn Mccann, DO 11/06/2022 3:22 PM Length of Stay (Days): 2 GMLOS: No GMLOS Documented . * Care Plan - Tona Barroso RN - 11/07/2022 9:03 PM EDT The patient is Moderately Stable - Low risk of patient condition declining or worsening The patient's goals for the shift include "Pain control and rest." The clinical goals for the shift include Safety * Home Care - Rosa Elena Isaac LPN - 11/07/2022 4:39 PM EDT Desk Maker following case for Discharge Needs. * Care Coordination - Phillip Gurrola RN - 11/07/2022 4:20 PM EDT Care Managment Initial Assessment Date: 11/07/2022 Patient Name: Gonzalo Deluca : 1955 Patient Information Source of Information: Patient Name/Contact Information: KARISHMA DELUCA [phone] GUYDeirdre AND JACE DELUCA SON [phone] Cognition/Language: WFL - Within Functional Limits Permission given to speak with patient financial sales representative/caregiver as indicated: Yes Confirmation of Payer with patient/family: Yes Payer Name: [facility] DUAL COMPLETE : No Confirmation of Primary Care Physician: Confirmed PCP Name: DR. CASE Seen in last 2 years?: Yes Primary Caregiver: Self If assistance needed, confirmed caregiver ready, willing and able to care for patient at discharge:Yes Confirmed with: PER PATIENT DAUGHTER Living Arrangements Current Residence: House Number of Floors 2 (SPLIT LEVEL) Number of Entry Steps: 1 Bed/Bath Levels: Both first floor Facility: Facility Name: [facility] Plan to Return: No Lives with: Children (DAUGHTER, DAUGHTER'S BOYFRIEND AND 6 YR OLD GRANDDAUGHTER) Support Systems: Children Activities of Daily Living Ambulation: Independent Bathing/Dressing: Independent Elimination/Continence/Toileting: Independent Feeding: Independent Who Assists with Activities of Daily Living: NA Instrumental Activities of Daily Living Prescription Coverage: Yes Pharmacy Used[facility] [place] Medication Management: Prescription pick-up Who assists with medication securing and setup?: DAUGHTER PICKS UP MEDS OR HAS THEM DELIVERED Transportation/Shopping: Assistance Provider Transportation/Shopping Assistance Provider Name: DAUGHTER Transportation Mode: Car Needs Assistance with Transportation at Discharge: Yes (IF DC'D TO SNF) Meal Preparation: Assistance Provider Meal Prep Assistance Provider Name: DAUGHTERS BOYFRIEND Laundry/Cleaning: Assistance Provider Laundry/Cleaning Assistance Provider Name: DAUGHTER Finances/Bill Paying: Independent Communication: Independent Types of Care Services/Equipment Utilized Care Services: Dialysis Type: NA Durable Medical Equipment: Shower Seat, Oxygen (Continuous or prn) Oxygen Flow Rate: 2.5 LITERS CONT DME Provider: [facility] Patient's Goal/Discharge Plan Patient expects to be discharged to: RETIREMENT FACILITY Discharge Planning Actions: Snf Facility referral indicated [place] of choice: [place] of choice discussed, Choice list provided Patient's Choice Rights and [employer] and Collaborative Relationships Disclosed as Indicated for Post-Acute Care: Yes Interdisciplinary Team Engagement: PT/OT, Home Health Care Social Work Referral for: Additional Information: Inpatient status from home with left femur fracture. Ortho consulted. OR this morning-: Percutaneous cannulated screw fixation left femoral neck fracture. Daily labs, pt/ot. Discharge preparation checklist reviewed with patient. She lives at home with her daughter and her daughter's boyfriend. Theylive in a split level home. Her bedroom and bathroom are on the main floor. Discussed possible therapy needs upon discharge. List of in network facilities given to her. She states she is planning discharging to a [facility] facility and would like to go to facility in [place] where her daughter's friend works-[facility]. Will place referral in careport to determine if [facility]. Did instruct patient to choose 3 other facilities in case there is no bed available at [facility] Will have home care follow peripherally should therapy recommend home with [facility]. Tentative discharge plan is home with [facility] vs snf when medically stable/accepting facility and auth obtained. Phillip Gurrola RN * Op Note - Andres Ventura MD - 11/07/2022 8:14 AM EDT Preoperative diagnosis: Left nondisplaced valgus impacted subcapital femoral neck fracture Postoperative diagnosis: Same Procedure: Percutaneous cannulated screw fixation left femoral neck fracture Surgeon: Andres Ventura MD Avionics Installer: Jono HARRIS Anesthesia: General Estimate blood loss: 5 mL Fluids: Crystalloid per anesthesia notes Medications: Ancef 2 g IV Complications: None Implants: Three 7.3 mm cannulated screws from [employer] Clinical history and operative indications: The patient is a 66-year-old female who sustained a mechanical fall from standing height at home yesterday morning on November 06, 2022. She presented emergency department with left hip pain and inability to ambulate. Radiographic findings were consistent with a nondisplaced valgus impacted subcapital fracture of the left hip. I recommended percutaneous fixation. The procedure was explained in detail to the patient including potential risks and complications. All of her questions were answered and no guarantees were made or implied. There were no medical contraindications to surgery and informed consent was signed. Operative summary: The patient was taken the operating room on the morning of November 15 in stable condition. A nerve block was performed by the anesthesia team in the holding area. A general anesthetic was induced on her hospital bed. She is then transferred to the fracture table. The perineal post was placed and herpelvis was stabilized against the post. Her well leg was flexed and abducted out of the surgical field. The left foot was placed into the fracture table boot. Care taken to pad all of her bony prominences. Gentle traction and internal rotation was applied to the left hip. The C-arm was brought in to image the hip. C-arm confirmed anatomic reduction of her nondisplaced fracture. The left hip was then prepped and draped in usual sterile orthopedic fashion and I began the procedure. Using C arm guidance, a small stab incision was made over the lateral aspect of the left femur in line with the lesser trochanter. Deep dissection was done with a hemostat. A guidepin from the [employer] 7.3 mm cannulated screw set was then introduced into the femoral neck. The first pin was placed low on the neck on the AP view and centrally on the lateral view. With his first pin in appropriate position, the parallel pin guide was used to place 2 more pins superior to the first, 1 slightly anterior and one slightly posterior. This gave us an inverted triangular orientation of the pins. We measured the length of our screws off the pins. We overdrilled in the usual fashion. Short threaded screws were then placed carefully. Excellent bony purchase was achieved with all 3 screws. We achieved good compression across the fracture site. The guidepins were removed and that completed the procedure. Final AP and lateral images were taken with the C arm. C-arm confirmed an anatomic reduction of thefracture and good position of the screws. The wound was thoroughly irrigated before closure. Subcutaneous tissue was reapproximated with 2-0 Vicryl in interrupted fashion. Skin was closed with 4-0 Monocryl in running subcuticular fashion. Dermabond and a Silverlon dressing was applied. Patient was awakened without difficulty and was taken to recovery in stable condition. * Care Plan - Tona Barroso RN - 11/06/2022 11:24 PM EDT The patient is Moderately Stable - Low risk of patient condition declining or worsening The patient's goals for the shift include "Pain control and rest." The clinical goals for the shift include Safety documented in this [place] [id number] Note* Care Coordination - Unknown Case Management - 11/08/2022 1:57 PM EDT Patient Choice Patient Name: GONZALO DELUCA Date of : 1955 All Providers Sent [facility]erral Name: [facility] Phone: [phone] Address: [address] [place] [id number] [id number]* Care Coordination - Unknown Case Management - 11/08/2022 1:57 PM EDT Patient Choice Patient Name: GONZALO DELUCA Date of : 1955 All Providers Sent Referral Name: [facility] Phone: [phone] Address: [address] [place] [id number] [id number] Hospital Discharge instructions* Discharge Instr - SHAMA* Austyn Bee RN - 11/08/2022 1:44 PM EDT Continuity of Care Form Patient Name: Gonzalo Deluca : 1955 Admit date: 11/06/2022 Discharge date: Code Status Order: Full Code Advance Directives: N Admitting Physician: Raul Whipple DO PCP: HERMINIA CASE MD Discharging Nurse: Austyn Bee RN Discharging Hospital Unit/Room#: B4-453/B4-453 A Discharging Unit Emergency Contact: Extended Emergency Contact Information Primary Emergency Contact: YosiKarishma Relation: Child Secondary Emergency Contact: Jace Deluca Hollis Relation: Child Past Surgical History: Past Surgical History: Procedure Laterality Date CYSTOSCOPY 01/12/2017 OFFICE PROCEDURE CYSTOSCOPY 02/11/2017 C&P bladder biopsy EYE SURGERY detached retina 1995 HYSTERECTOMY 11/06/2019 ABDOMINAL RADICAL HYSTERECTOMY WITH BSO AND PELVIC LYMPH; DR. ZIYAD FISH OTHER SURGICAL HISTORY Left 12/19/2019 Med Port POWER Regular Size OTHER SURGICAL HISTORY Left 11/07/2022 Percutaneous skeltal fixation femoral fracture TUBAL LIGATION 1992 Immunization History: Immunization History Administered Date(s) Administered Influenza, Unspecified 01/10/2018 Tdap 08/08/2016 Active Problems: Medical Problems Problem List * (Principal) Nondisplaced fracture of neck of left femur (HCC) Other specified complication of vascular prosthetic devices, implants and grafts, initial encounter(HCC) Acute exacerbation of chronic obstructive pulmonary disease (HCC) Poor venous access Chronic back pain COPD (chronic obstructive pulmonary disease) (HCC) Overview Signed 01/01/2022 6:48 AM by Interface, Incoming Problems- [facility] Conversion On home 3-4L NC DDD (degenerative disc disease), cervical Leukocytosis Malignant neoplasm of exocervix (HCC) Moderate malnutrition (CMS/HCC) (HCC) Recurrent major depression (HCC) Pulmonary nodule Overview Signed 01/01/2022 6:48 AM by Interface, Incoming Problems- [facility] Conversion Per CT CHest 09/2015: 12 mm nodule (R), 5 mm nodule (L); unchanged CT Chest 08/2016 S/P hysterectomy Sciatica Shortness of breath Supplemental oxygen dependent PNA (pneumonia) H/O: CVA (cerebrovascular accident) Former smoker Isolation/Infection: No active isolations No active infections Nurse Assessment: Last Vital Signs: BP 108/63 (BP Location: Right arm, Patient Position: Lying) Pulse 87 Temp 36.6 C (97.8 F) (Temporal) Resp 16 Ht 1.626 m (5' 4") Wt 59 kg (130 lb) SpO2 97% BMI 22.31 kg/m Last documented pain score (0-10 scale): Last Weight: Wt Readings from Last 1 Encounters: 11/06/22 59 kg (130 lb) Mental Status: SHAMA Patient Mental Status: oriented, alert, and coherent IV Access: SHAMA IV Access: None Nursing Mobility/ADLs: Walking Minimal assistance Transfer Minimal assistance Bathing Minimal assistance Dressing Minimal assistance Toileting Minimal assistance Feeding Independent Instrumentation Instructor Minimal assistance Med Delivery no Wound Care Documentation and Therapy: Wound/Incision 05/21/22 Traumatic Eye Right (Active) Number of days: 170 Wound/Incision 05/21/22 Traumatic Wrist Left;Posterior (Active) Number of days: 170 Wound/Incision 11/07/22 Incision Leg Anterior;Left;Proximal;Upper (Active) Site Assessment Unable to assess 11/07/222106 Odor None 11/07/222106 Primary Dressing Dermabond;Silver dressing 11/07/222106 Dressing Status Clean, dry & intact 11/07/222106 Number of days: 1 Elimination: Continence: Bowel: yes Bladder: no, at times Urinary Catheter: None Colostomy/Ileostomy/Ileal Conduit: None Date of Last BM: 11/05/2022 Intake/Output Summary (Last 24 hours) at 11/08/2022 1342 Last data filed at 11/08/2022 0312 Gross per 24 hour Intake 132 ml Output 900 ml Net -768 ml I/O last 3 completed shifts: In: 392 (6.6 mL/kg) [I.V.:291 (4.9 mL/kg); IV Piggyback:101] Out: 900 (15.3 mL/kg) [Urine:900 (0.4 mL/kg/hr)] Weight: 59 kg Safety Concerns: Fall Risk Impairments/Disabilities: vision Nutrition Therapy: Current Nutrition Therapy: Oral diet: general Routes of Feeding: oral Liquids: no restrictions Daily Fluid Restriction: no Last Modified Barium Swallow with Video (Video Swallowing Test): not done Treatments at the Time of Hospital Discharge: Respiratory Treatments: Oxygen Therapy: is on oxygen at 3 L/min per nasal cannula. Ventilator: No ventilator support Rehab Therapies: physical therapy and occupational therapy Weight Bearing Status/Restrictions: no restriction Other Medical Equipment (for information only, NOT a DME order): walker Other Treatments: Patient's personal belongings (please select all that are sent with patient): glasses and dentures upper and lower RN SIGNATURE: MANAGEMENT/SOCIAL WORK SECTION Inpatient Status Date: Readmission Risk Assessment Score: @READMISSIONRISKDETAILS@ Discharging to Facility/ Agency Name: [facility] Address:[address] [place] [address] Phone:[phone] Fax: Dialysis Facility (if applicable) Name: Address: Dialysis Schedule: Phone: Fax: [employer] signature: ICIAN SECTION Prognosis: excellent Condition at Discharge: stable Rehab Potential (if transferring to Rehab): excellent Recommended Labs or Other Treatments After Discharge: none Physician Certification: I certify the above information and transfer of Gonzalo Deluca is necessary for the continuing treatment of the diagnosis listed and that she requires usp facility for less than 30 days. Update Admission H&P: No change in H&P PHYSICIAN SIGNATURE: documented in this [place]08-21-2023 Hospital course Narrative* Raul Whipple DO - 11/08/2022 1:31 PM EDT Images from the original note were not included. Hospitalist Discharge Summary Gonzalo Deluca : 1955 Admit date: 11/06/2022 Discharge date: 11/08/2022 Admitting Physician: Raul Whipple DO Primary Care Physician: HERMINIA CASE MD Visit Status: inpatient Code Status: Full Code Discharge Diagnoses: Left intertrochanteric hip fracture Mechanical fall at home Known COPD with emphysema and asthma Chronic hypoxic respiratory failure MDD, chronic HLD DDD Hospital Course: patient admitted with mechanical fall at home, sustained left intertrochanteric hip fracture. Underwent ORIF by ortho on 11/07/22, patient tolerated procedure well. Patient had pain managed adequately. She as cleared by ortho for discharge. Patient labs and vitals remained stable. She worked with PT/OT and was recommended SNF on discharge. Patient to follow up with PCP and ortho surgery outpatient in 2-4 weeks. Patient discharged to SNF in stable condition on 11/08/22. Consults: IP CONSULT TO ORTHOPAEDIC SURGERY IP CONSULT TO CASE MANAGEMENT Discharge Instructions: Diet: Adult diet Regular Activity: as tolerated Recommended Outpatient Tests: Disposition: Patient discharged in stable condition to SNF LABS: CBC: Recent Labs 11/06/22 1455 11/07/22 0638 11/08/22 0156 WBC 10.3 6.0 9.1 RBC 3.91 3.63* 3.23* HGB 12.1 11.2* 10.3* HCT 36.4 33.8* 29.9* MCV 93.2 93.0 92.8 RDW 14.9* 14.8* 14.7* PLT 238 213 182 BMP: Recent Labs 11/06/22 1455 11/07/22 0617 11/08/22 0156 NA 137 135 136 K 3.5 3.8 4.1 CL 105 106 105 CO2 30 29 27 BUN 12 14 19* CREATININE 0.66 0.71 0.65 GLUCOSE 99 96 142* CALCIUM 8.4 8.3* 8.1* ANIONGAP 2* 0* 3 LIVER PROFILE:No results for input(s): AST, ALT, BILITOT, ALKPHOS, PROT in the last 72 hours. No lab exists for component: LABALBU PT/INR: No results for input(s): PROTIME, INR in the last 72 hours. CARDIAC ENZYMES: No results for input(s): TROPONINI in the last 72 hours. Procalcitonin: No results found for: PROCAL COVID-19 PCR: No results for input(s): COVID19 in the last 72 hours. Vitals: BP 108/63 (BP Location: Right arm, Patient Position: Lying) Pulse 87 Temp 36.6 C (97.8 F) (Temporal) Resp 16 Ht 5' 4" (1.626 m) Wt 130 lb (59 kg) SpO2 97% BMI 22.31 kg/m Pulse Ox: SpO2 Av.3 % Min: 92 % Max: 97 % Supplemental O2: O2 Flow Rate (L/min): 3 L/min General appearance: No apparent distress, appears stated age and cooperative with exam, female in NAD Respiratory: diminished, but CTA BL , no wheezing. Cardiovascular: Regular rate and rhythm with no murmur Abdomen: Soft, non-tender, non-distended Skin: left hip post surgical changes noted, distal pulses intact in BL LE, no edema in BL LE. Neurologic: grossly non-focal. Discharge Medications: Medication List START taking these medications enoxaparin 40 MG/0.4ML solution prefilled syringe Commonly known as: Lovenox Inject 0.4 mL (40 mg) under the skin every 24 hours. Do not start before November 09, 2022. Start taking on: November 09, 2022 nicotine 21 MG/24HR patch Commonly known as: Nicoderm, Step 1 Place 1 patch on the skin daily. Do not start before November 09, 2022. Start taking on: November 09, 2022 oxyCODONE-acetaminophen 5-325 MG tablet Commonly known as: Percocet Take 1 tablet by mouth every 6 hours as needed for moderate pain (4-6) or severe pain (7-10) for upto 3 days. CONTINUE taking these medications albuterol 108 (90 Base) MCG/ACT inhaler alendronate 70 MG tablet Commonly known as: Fosamax aspirin 81 MG EC tablet atorvastatin 40 MG tablet Commonly known as: Lipitor Breo Ellipta 200-25 MCG/ACT aerosol powder Generic drug: Fluticasone Furoate-Vilanterol buPROPion XL 150 MG 24 hr tablet Commonly known as: Wellbutrin XL calcium carbonate-cholecalciferol 250-3.125 MG-MCG tablet Commonly known as: Oyster Shell clonazePAM 0.5 MG tablet Commonly known as: KlonoPIN diphenhydrAMINE 25 MG tablet Commonly known as: Sominex fluticasone 50 MCG/ACT nasal spray Commonly known as: Flonase gabapentin 600 MG tablet Commonly known as: Neurontin magnesium oxide 400 mg tablet Commonly known as: Mag-Ox montelukast 10 MG tablet Commonly known as: Singulair potassium chloride CR 20 MEQ ER tablet Commonly known as: Klor-Con M20 QUEtiapine 100 MG tablet Commonly known as: SEROquel sertraline 100 MG tablet Commonly known as: Zoloft Spiriva Respimat 2.5 MCG/ACT inhaler Generic drug: tiotropium Zinc 50 MG capsule Where to Get Your Medications You can get these medications from any pharmacy Bring a paper prescription for each of these medications enoxaparin 40 MG/0.4ML solution prefilled syringe nicotine 21 MG/24HR patch oxyCODONE-acetaminophen 5-325 MG tablet Recommended Follow-up: PCP and ortho surgery outpatient in 1-2 weeks @READMISSIONRISK@ Complexity of Follow up: [] Moderate Complexity: follow up within 7-14 calendar days (42078) [x] Severe Complexity: follow up within 7 calendar days (44092) Follow up Testing, Pending results or Referrals at Transitional Care Visit: [x] yes [] no Instructions to MA: Please call patient on day after discharge (must document patient contacted within 2 business days of discharge). Follow up questions for MA: 1. Did you get medications filled and taking them as instructed from discharge? 2. Are you following your discharge instructions from your hospital stay? 3. Please confirm patient is scheduled for a follow up appointment within the above time frame. Signed: Raul Whipple DO Division of Hospitalist Medicine Inpatient Medical Services/[facility] 11/08/2022, 1:31 PM Total time Spent on Discharge: 21 minutes documented in this [place]08-21-2023 History of Present illness Narrative* Raul Whipple DO - 11/08/2022 1:00 PM EDT Images from the original note were not included. Hospitalist Progress Note 11/08/2022 [id number]: Please page me ([phone]) for patient care issues. [id number]: Please page [facility] Hospitalist for any issues. Subjective: Admit Date: 11/06/2022 PCP: HERMINIA CASE MD Room#: B4-453/B4-453 A Interval History: No overnight issues. Denies chest pain, sob, abdominal pain, nausea, vomiting, diarrhea, constipation, fevers, or chills. Mild left hip pain reported, working well with therapy. Adult diet Regular 24HR INTAKE/OUTPUT: Intake/Output Summary (Last 24 hours) at 11/08/2022 1300 Last data filed at 11/08/2022 0312 Gross per 24 hour Intake 132 ml Output 900 ml Net -768 ml Past Medical History: Past Medical History: Diagnosis Date Abnormal stress test Allergic rhinitis Arthritis Asthma Bronchitis Cancer (CMS/HCC) (HCC) skin Cervical cancer (CMS/HCC) (HCC) Chest pain COPD (chronic obstructive pulmonary disease) ([facility]) USE OXYGEN 3 L AT NIGHT DDD (degenerative disc disease), cervical Defect, retina, with detachment right DJD (degenerative joint disease), lumbar Emphysema lung (HCC) Former smoker Hematuria SCHEDULED FOR THE PROCEDURE /SURGERY ON 02/11/2017 Hypokalemia Lung nodules Osteoporosis Palpitations Pneumonia Recurrent major depression (HCC) Sciatica Thoracic compression fracture ([facility]) Vitamin D deficiency LABS: CBC: Recent Labs 11/06/22 1455 11/07/22 0638 11/08/22 0156 WBC 10.3 6.0 9.1 RBC 3.91 3.63* 3.23* HGB 12.1 11.2* 10.3* HCT 36.4 33.8* 29.9* MCV 93.2 93.0 92.8 RDW 14.9* 14.8* 14.7* PLT 238 213 182 BMP: Recent Labs 11/06/22 1455 11/07/22 0617 11/08/22 0156 NA 137 135 136 K 3.5 3.8 4.1 CL 105 106 105 CO2 30 29 27 BUN 12 14 19* CREATININE 0.66 0.71 0.65 GLUCOSE 99 96 142* CALCIUM 8.4 8.3* 8.1* ANIONGAP 2* 0* 3 LIVER PROFILE:No results for input(s): AST, ALT, BILITOT, ALKPHOS, PROT in the last 72 hours. No lab exists for component: LABALBU PT/INR: No results for input(s): PROTIME, INR in the last 72 hours. CARDIAC ENZYMES: No results for input(s): TROPONINI in the last 72 hours. Procalcitonin: No results found for: PROCAL COVID-19 PCR: No results for input(s): COVID19 in the last 72 hours. Objective: Vitals: BP 108/63 (BP Location: Right arm, Patient Position: Lying) Pulse 87 Temp 36.6 C (97.8 F) (Temporal) Resp 16 Ht 5' 4" (1.626 m) Wt 130 lb (59 kg) SpO2 97% BMI 22.31 kg/m Pulse Ox: SpO2 Av.3 % Min: 92 % Max: 97 % Supplemental O2: O2 Flow Rate (L/min): 3 L/min General appearance: No apparent distress, appears stated age and cooperative with exam Respiratory: diminished but CTA BL, no wheezing. Cardiovascular: Regular rate and rhythm with no murmur Abdomen: Soft, non-tender, non-distended Skin: left hip post surgical changes noted, distal pulses intact in BL LE, no edema in BL LE. Neurologic: grossly non-focal. Medications: aspirin, 81 mg, Oral, Daily atorvastatin, 40 mg, Oral, Nightly buPROPion XL, 150 mg, Oral, Nightly enoxaparin, 40 mg, SubCUTAneous, Daily gabapentin, 600 mg, Oral, Nightly montelukast, 10 mg, Oral, Nightly nicotine, 1 patch, TransDERmal, Daily QUEtiapine, 200 mg, Oral, Nightly sertraline, 200 mg, Oral, Nightly sodium chloride 0.9%, 5-40 mL, IntraVENous, q12h tiotropium, 1 capsule, Inhalation, Daily Assessment Left intertrochanteric hip fracture Mechanical fall Ortho on consult, ORIF on 11/07/22 Labs stable, EKG, and UA reviewed CXR negative for acute pathology PT/OT eval and treat PRN pain medications Known COPD with emphysema and asthma Chronic hypoxic respiratory failure Patient is in 2-3L via NC at baseline No acute exacerbation Resume home breathing treatments, PRN duonebs MDD, chronic Resume home zoloft and wellbutrin HLD Resume statin DDD Gabapentin resumed Medical Decision Making 11/06/22: patient with mechanical fall at home with left intertrochanteric hip fracture. Ortho on consult. UA and EKG pre-op pending. NPO at midnight. PRN pain medications. NSQIP patient is at averagesurgical risk. At this time benefits of surgery outweigh risks associated with surgical intervention. Await ortho recs 11/07/22: patient underwent ORIF with screw fixation of left femoral neck fracture today by ortho surgery, patient tolerated procedure well. PT/OT eval and treat, labs in the AM. Suspect may need SNF.CM to follow. 11/08/22: patient with mechanical fall at home, found to have left intertrochanteric hip fracture. Underwent ORIF by ortho on 11/07/22, tolerated well. Patient at baseline O2 requirements for chronic respiratory failure. PT/OT recommending SNF. Discussed with CM, awaiting for placement and auth. -am labs, replace lytes prn -increase activity -resume home medications as indicated -DVT prophylaxis: [x] Lovenox [] Heparin [] SCDs [x] Encourage ambulation [] Already on Anticoagulation Anticipated Discharge - Date - 11/09 vs 11/10 - Location - SNF - Pending the following - clearance by ortho, PT/OT eval and treat. Auth? Toxic drug monitoring/narrow therapeutic index drug monitoring : # Drug name : # Route administered : # Method of monitoring : Extended Emergency Contact Information Primary Emergency Contact: Karishma Deluca Relation: Child Secondary Emergency Contact: Jace Deluca Relation: Child Raulmila Whipple DO Division of Hospitalist Medicine Inpatient Medical Services/[facility] PAGER: Epic chat * Betsey Gresham MD - 11/08/2022 11:05 AM EDT H: Recent Labs 11/08/22 0156 HGB 10.3* WBC 9.1 VS: Blood pressure 108/63, pulse 87, temperature 36.6 C (97.8 F), temperature source Temporal, resp. rate 16, height 1.626 m (5' 4"), weight 59 kg (130 lb), SpO2 97 %. No complaints other than pain -- block starting to wear off. Walked to door today w/ PT. PE: NVI. Calves soft. Silverlon C&D. No flash. Xray: N/a LABS: Hgb OK IMP: POD 1, perc screws left hip PLAN: PT/OT Monitor Hgb DVT prophy Discharge plans. Lab Results Component Value Date WBC 9.1 11/08/2022 HGB 10.3 (L) 11/08/2022 HCT 29.9 (L) 11/08/2022 PLT 182 11/08/2022 * Amy Brambila OT - 11/08/2022 10:19 AM EDT Occupational Therapy Facility/Department: [facility] Occupational Therapy Initial Evaluation NAME: Gonzalo Deluca : 1955 Date of Service: 11/08/2022 Discharge Recommendations: IP Rehab OT Equipment Recommendations Equipment Needed: No (TBD at next level of care) Assessment REQUIRES OT FOLLOW-UP: Yes Performance deficits / Impairments: Decreased functional mobility , Decreased ADL status, DecreasedROM, Decreased strength, Decreased cognition, Decreased balance, Decreased high-level IADLs, Decreased posture Assessment: Pt admitting 11/06 s/p L subcapital femoral fx-underwent 11/07 percutaneous screw fixation with Dr. Ventura, is WBAT. At baseline, pt is independent with ADLs and functional mobility without a device. Pt is currently mod I-max A with ADLs and min A for transfers and functional mobility short distances with fww. Pt is limited by balance deficits, weakness, fatigue, and pain and is functioning below baseline. Pt would benefit from skilled OT services to maximize safety and independence with ADLs and functional mobility. Rec IPR at d/c. Pt is motivated to participate in therapy services and likely able to tolerate 3 hrs of therapy daily. Prognosis: Good Decision Making: Medium Complexity History: Pt admitting 11/06 s/p L subcapital femoral fx-underwent 11/07 percutaneous screw fixation with Dr. Ventura is WBAT Exam: AM-PAC Assistance / Modification: mod I-max A Activity Tolerance Activity Tolerance: Patient limited by fatigue Patient Diagnosis(es): The encounter diagnosis was Closed displaced intertrochanteric fracture of left femur, initial encounter ([facility]). has a past medical history of Abnormal stress test, Allergic rhinitis, Arthritis, Asthma, Bronchitis, Cancer (CMS/HCC) ([facility]), Cervical cancer (CMS/HCC) ([facility]), Chest pain, COPD (chronic obstructive pulmonary disease) ([facility]), DDD (degenerative disc disease), cervical, Defect, retina, with detachment, DJD (degenerative joint disease), lumbar, Emphysema lung ([facility]), Former smoker, Hematuria, Hypokalemia, Lung nodules, Osteoporosis, Palpitations, Pneumonia, Recurrent major depression ([facility]), Sciatica, Thoracic compression fracture ([facility]), and Vitamin D deficiency. She has no past medical history of Blood circulation, collateral, Chronic kidney disease, Clotting disorder (CMS/HCC) ([facility]), Disease of blood and blood forming organ, GERD (gastroesophageal reflux disease), Liver disease, Movement disorder, Other disorders of kidney and ureter in diseases classified elsewhere, Seizures ([facility]), or Syncope and collapse. has a past surgical history that includes Tubal ligation; Cystoscopy (01/12/2017); Cystoscopy (02/11/2017); Eye surgery; Hysterectomy (11/06/2019); Other surgical history (Left, 12/19/2019); and Other surgical history (Left, 11/07/2022). Restrictions Restrictions/Precautions Restrictions/Precautions: Weight Bearing, General Precautions, Fall Risk Required Braces or Orthoses?: No Lower Extremity Weight Bearing Restrictions Left Lower Extremity Weight Bearing: Weight Bearing As Tolerated Position Activity Restriction Other position/activity restrictions: s/p L subcapital femoral fx-underwent 11/[address] Ventura, is WBAT Vision/Hearing Vision: Within Functional Limits Hearing: Functional/adequate for paticipation in therapy Cognition/Orientation Overall Cognitive Status: WFL Overall Orientation Status: Within Functional Limits Subjective General Chart Reviewed: Yes Patient Assessed for Rehabilitation Services: Yes Family / Caregiver Present: No Subjective Subjective: Pt supine in bed at arrival. Pleasant and agreeable. General Comments Comments: Per RN, pt ok to see. Patient Stated Goal: to get stronger and go to rehab Pain Assessment Pain Assessment: No/denies pain Social/Functional History Social/Functional History Lives With: Daughter (daughter boyfriend) Type of Home: House Home Layout: Two level, 1/2 bath on main level, Bed/Bath upstairs Home Access: Stairs to enter with rails Entrance Stairs - Number of Steps: 3 Bathroom Shower/Tub: Walk-in shower Bathroom Toilet: Standard Receives Help From: Family ADL Assistance: Independent Homemaking Assistance: Independent Homemaking Responsibilities: Yes Ambulation Assistance: Independent With device?: No Transfer Assistance: Independent Objective Gross Assessment: Yes AROM: Generally decreased, functional Strength: Generally decreased, functional Coordination: Within functional limits Tone: Normal Sensation: Impaired (reports decreased sensation in LLE however remains functional) Observation/Palpation Posture: Good Observation: sx dressing clean/dry/intact; 3L O2, PIV Balance Sitting Balance: Supervision Standing Balance: Contact guard assistance Standing Balance Time: ~1 minute total Activity: static standing Comment: Pt standing with increased reliance on fww. No true LOB noted with static standing. Functional Mobility Functional - Mobility Device: Rolling Walker Activity: Other Assist Level: Minimal assistance Functional Mobility Comments: Pt ambulating to/from door with fww with min A for balance with verbal cues for technqiue and walker mgmt. Pt with intermittent partial L knee buckling however demos self correction. Pt with mild impulsivity with ambulation and demos decreased WB with LLE. ADL Feeding: Independent Grooming: Modified independent UE Bathing: Modified independent LE Bathing: Moderate assistance UE Dressing: Modified independent LE Dressing: Maximum assistance Toileting: Minimal assistance Additional Comments: Pt is independent with ADLs at baseline. At time of eval, pt is mod I with UB ADLs, mod-max A with LB ADLs, and min A with toileting bathroom level. Pt requires assist with distal LE ADLs d/t decreased functional reach. Pt with decreased standing balance, requiring assist with clothing mgmt up/down while using fww for UE support. Bed mobility Supine to Sit: Stand by assistance Sit to Supine: Unable to assess Scooting: Stand by assistance Comment: Pt denies dizzness. Therapist educate pt on WB status. She demo bed mobility SBA with increased time to complete, is in recliner post session Transfers Sit to stand: Minimal assistance Stand to sit: Minimal assistance Transfer Comments: Pt standing from EOB to fww with min A for elevation and balance, requiring increased time to establish steady SADIE. Pt sitting in recliner with min A for controlled descent. Pt required verbal cues for safe hand placement during transfers with good teach back. Plan Times per Day: Daily # of visits: 7 Current Treatment Recommendations: Strengthening, ROM, Balance Training, Functional Mobility Training, Endurance Training, Pain Management, Safety Education & Training, Patient/Caregiver Education & Training, Equipment Evaluation, Education, & procurement, Self-Care / ADL, Home Management Training Plan Comment: POC and goals established in collaboration with the pt. Safety Safety Devices in place: Yes Type of devices: All fall risk precautions in place, Call light within reach, No alarms engaged upon entry into room, Nurse notified, Left in chair, Patient at risk for falls, Gait belt Restraints Initially in place: No Outcomes Score AM-PAC Score AM-PAC Inpatient Daily Activity Raw Score: 19 ADL Inpatient CMS G-Code Modifier: CK Goals Encounter Problems Encounter Problems (Active) Dressings Lower Extremities Patient will dress lower body with SBA Start: 11/08/22 Expected End: 11/15/22 Mobility Patient will demonstrate functional ambulation with SBA Start: 11/08/22 Expected End: 11/15/22 Toileting Patient will complete toileting tasks at standard toilet with SBA. Start: 11/08/22 Expected End: 11/15/22 Transfers Patient will complete functional transfer with rolling walker with SBA in order to prepare for ambulation. Start: 11/08/22 Expected End: 11/15/22 Education Education Given To: Patient Education Provided: OT role, Plan of care, Transfer training, Equipment, Discharge recommendations,Fall prevention strategies Education Method: Verbal, Teach Back Barriers to Learning: None Education Outcome: Verbalized understanding, Demonstrated understanding, Continued education needed Therapy Time Individual Co-treatment Time In 820 Time Out 832 (co eval with PT) Minutes 12 POC supervision transferred to rehab service department occupational therapist. Amy Brambila OT * Oseas King PT - 11/08/2022 9:45 AM EDT Physical Therapy Facility/Department: [facility] Physical Therapy Initial Evaluation NAME: Gonzalo Deluca : 1955 Date of Service: 11/08/2022 Discharge Recommendations: IP Rehab PT Equipment Recommendations Other: TBD at d/c location Assessment Requires PT Follow-Up: Yes Assessment: Pt presents with noted deficits after admission 11/06 s/p L subcapital femoral fx-underwent 11/07 percutaneous screw fixation with Dr. Ventura, is WBAT. At baseline is IND with no device. She demo bed mobility SBA, transfer to FWW with min A and minimal ambulation with FWW and min A. She is limited by fatigue and resiudal numbness. She is at increased falls risk and unsafe to retur homethis date, rec IPR.Pt highly motivated and pt will likely benefit from multidisciplinary therapies Performance Deficits/Impairments: Decreased safe awareness, Decreased functional mobility , Decreased endurance, Decreased sensation, Decreased balance, Decreased strength Decision Making: Medium Complexity History: s/p L subcapital femoral fx-underwent 11/07 percutaneous screw fixation with Dr. Ventura is WBAT Exam: [facility] Clinical Presentation: Pt admitted 11/06 with s/p L subcapital femoral fx- underwent 11/07 percutaneous screw fixation with Dr. Ventura is WBAT. She has PMH as indicated which contribute to her clinical presentation. She has multiple deficits as noted to be addressed by PT, represent moderate complexdecision making Barriers to Learning: None Barriers to Learning: None Activity Tolerance Activity Tolerance: Patient limited by fatigue Activity Tolerance Comments: residual numbness Patient Diagnosis(es): The encounter diagnosis was Closed displaced intertrochanteric fracture of left femur, initial encounter ([facility]). has a past medical history of Abnormal stress test, Allergic rhinitis, Arthritis, Asthma, Bronchitis, Cancer ([facility]) ([facility]), Cervical cancer ([facility]) ([facility]), Chest pain, COPD (chronic obstructive pulmonary disease) ([facility]), DDD (degenerative disc disease), cervical, Defect, retina, with detachment, DJD (degenerative joint disease), lumbar, Emphysema lung ([facility]), Former smoker, Hematuria, Hypokalemia, Lung nodules, Osteoporosis, Palpitations, Pneumonia, Recurrent major depression ([facility]), Sciatica, Thoracic compression fracture ([facility]), and Vitamin D deficiency. She has no past medical history of Blood circulation, collateral, Chronic kidney disease, Clotting disorder ([facility]) ([facility]), Disease of blood and blood forming organ, GERD (gastroesophageal reflux disease), Liver disease, Movement disorder, Other disorders of kidney and ureter in diseases classified elsewhere, Seizures ([facility]), or Syncope and collapse. has a past surgical history that includes Tubal ligation; Cystoscopy (01/12/2017); Cystoscopy (02/11/2017); Eye surgery; Hysterectomy (11/06/2019); Other surgical history (Left, 12/19/2019); and Other surgical history (Left, 11/07/2022). Restrictions Restrictions/Precautions Restrictions/Precautions: Weight Bearing, General Precautions, Fall Risk Required Braces or Orthoses?: No Lower Extremity Weight Bearing Restrictions Left Lower Extremity Weight Bearing: Weight Bearing As Tolerated Position Activity Restriction Other position/activity restrictions: s/p L subcapital femoral fx-underwent 11/[address] Ventura is WBAT Vision/Hearing Vision: Within Functional Limits Hearing: Functional/adequate for paticipation in therapy Cognition/Orientation Overall Cognitive Status: WFL Overall Orientation Status: Within Functional Limits Subjective General Chart Reviewed: Yes Patient Assessed for Rehabilitation Services: Yes Additional Pertinent Hx: s/p L subcapital femoral fx-underwent 11/[address] percutaneous screw fixation with Dr. Ventura is WBAT Family / Caregiver Present: No Follows Commands: Within Functional Limits General Comment Comments: Per RN pt okay for therapy Subjective Subjective: Pt pleasant and agree to PT Patient Stated Goal: None stated Pain Assessment Pain Assessment: No/denies pain Social/Functional History Social/Functional History Lives With: Daughter (daughter boyfriend) Type of Home: House Home Layout: Two level, 1/2 bath on main level, Bed/Bath upstairs Home Access: Stairs to enter with rails Entrance Stairs - Number of Steps: 3 Bathroom Shower/Tub: Walk-in shower Bathroom Toilet: Standard Receives Help From: Family ADL Assistance: Independent Homemaking Assistance: Independent Homemaking Responsibilities: Yes Ambulation Assistance: Independent With device?: No Transfer Assistance: Independent Objective Observation/Palpation Posture: Good Observation: sx dressing clean/dry/intact; 3L O2, PIV Gross Assessment: Yes AROM: Generally decreased, functional Strength: Generally decreased, functional Tone: Normal Sensation: Impaired (residual post op numbness) Bed mobility Supine to Sit: Stand by assistance Sit to Supine: Unable to assess Scooting: Stand by assistance Comment: Pt denies dizzness. Therapist educate pt on WB status. She demo bed mobility SBA with increased time to complete, is in recliner post session Transfers Sit to Stand: Minimal Assistance Stand to sit: Minimal Assistance Comment: Pt complete functional transfer to FWW with min A. Therapist cues pt for hand and foot placement. She demo 1 retro LOB with min A to correct. She demo decreased eccentric control to sit, require min A Ambulation Ambulation: Yes Ambulation 1 Surface 1: Level tile Device 1: Rolling walker Assistance 1: Minimum assistance Quality of Gait 1: No LOB, step to pattern, slow lauren Quality of Gait Comment 1: Pt ambulate with FWW and min A. She demo decreased WB through LLE, also reports some residual numbness. She demo no LOB, 1-2 instance buckling but self corrects. She demo step to pattern with decreased lauren and step length Distance (ft) 1: ~20 ft Comments 1: Therapist cues pt for safety and walker management, cues for upright trunk and walker use. Pt limited by residual numbness Balance Posture: Good Sitting - Static: Good Sitting - Dynamic: Good Standing - Static: Fair Standing - Dynamic: Fair, - Plan Times per Day: Daily # of visits: 7 Current Treatment Recommendations: Strengthening, Balance Training, Functional Mobility Training, Transfer Training, Endurance Training, Equipment Evaluation, Education, & procurement, Patient/Caregiver Education & Training, Safety Education & Training, Home Exercise Program, Stair training, Gait Training, Pain Management, Positioning Plan Comment: goals and treatment plan established in collaboration with pt Safety Safety Devices Safety Devices in Place: Yes Type of Devices: Nurse notified, Patient at risk for falls, All fall risk precautions in place, Call light within reach, Left in chair, Gait belt AM-PAC Score AM-PAC Inpatient Mobility Raw Score (No Stairs) : 15 Goals Encounter Problems Encounter Problems (Active) Exercise Patient will complete lower extremity exercises for 1-2 sets / 5-10 reps in order to improve strength and activity tolerance for mobility. Start: 11/08/22 Expected End: 11/15/22 Mobility Patient will ambulate 75 feet with SBA and rolling walker in order to improve safety and independence with mobility. Start: 11/08/22 Expected End: 11/15/22 Transfers Patient will perform bed mobility with modified independence in order to improve independence and prepare for out of bed mobility. Start: 11/08/22 Expected End: 11/15/22 Patient will complete sit to stand transfer with SBA to rolling walker in order to improve safety and prepare for out of bed mobility. Start: 11/08/22 Expected End: 11/15/22 Education Education Given To: Patient Education Provided: Goals, Energy Conservation, PT Role, General Safety, Gait Training, Plan of Care, Discharge recommendations, Functional Mobility Training, Equipment, Precautions, Transfer Training, Weight-bearing Education, Injury Prevention Education Method: Demonstration, Verbal Barriers to Learning: None Education Outcome: Verbalized understanding, Demonstrated understanding, Continued education needed Therapy Time Individual Co-treatment Time In 0821 (co-eval with OT) Time Out 0833 Minutes 12 Oseas Knig, PT * Josie Isaac - 11/08/2022 8:21 AM EDT Nutrition rescreen complete. Pt assigned a level one for nutrition care. * Raul Whipple DO - 11/07/2022 12:00 PM EDT Images from the original note were not included. Hospitalist Progress Note 11/07/2022 [phone]: Please page me ([phone]) for patient care issues. [phone]: Please page [facility] Hospitalist for any issues. Subjective: Admit Date: 11/06/2022 PCP: HERMINIA CASE MD Room#: B4-740/W7-813 A Interval History: No overnight issues. Denies chest pain, sob, abdominal pain, nausea, vomiting, diarrhea, constipation, fevers, or chills. Mild left hip pain reported, tolerated surgery well. Adult diet Regular 24HR INTAKE/OUTPUT: Intake/Output Summary (Last 24 hours) at 11/07/2022 1200 Last data filed at 11/07/2022 0917 Gross per 24 hour Intake 260 ml Output -- Net 260 ml Past Medical History: Past Medical History: Diagnosis Date Abnormal stress test Allergic rhinitis Arthritis Asthma Bronchitis Cancer (CMS/HCC) (HCC) skin Cervical cancer (CMS/HCC) (HCC) Chest pain COPD (chronic obstructive pulmonary disease) (HCC) USE OXYGEN 3 L AT NIGHT DDD (degenerative disc disease), cervical Defect, retina, with detachment right DJD (degenerative joint disease), lumbar Emphysema lung (HCC) Former smoker Hematuria SCHEDULED FOR THE PROCEDURE /SURGERY ON 02/11/2017 Hypokalemia Lung nodules Osteoporosis Palpitations Pneumonia Recurrent major depression (HCC) Sciatica Thoracic compression fracture (HCC) Vitamin D deficiency LABS: CBC: Recent Labs 11/06/22 1455 11/07/22 0638 WBC 10.3 6.0 RBC 3.91 3.63* HGB 12.1 11.2* HCT 36.4 33.8* MCV 93.2 93.0 RDW 14.9* 14.8* PLT 238 213 BMP: Recent Labs 11/06/22 1455 11/07/22 0617 NA 137 135 K 3.5 3.8 CL 105 106 CO2 30 29 BUN 12 14 CREATININE 0.66 0.71 GLUCOSE 99 96 CALCIUM 8.4 8.3* ANIONGAP 2* 0* LIVER PROFILE:No results for input(s): AST, ALT, BILITOT, ALKPHOS, PROT in the last 72 hours. No lab exists for component: LABALBU PT/INR: No results for input(s): PROTIME, INR in the last 72 hours. CARDIAC ENZYMES: No results for input(s): TROPONINI in the last 72 hours. Procalcitonin: No results found for: PROCAL COVID-19 PCR: No results for input(s): COVID19 in the last 72 hours. Objective: Vitals: BP 111/70 (BP Location: Right arm, Patient Position: Lying) Pulse 99 Temp 36.3 C (97.3 F) (Temporal) Resp 20 Ht 5' 4" (1.626 m) Wt 130 lb (59 kg) SpO2 93% BMI 22.31 kg/m Pulse Ox: SpO2 Av.4 % Min: 90 % Max: 99 % Supplemental O2: O2 Flow Rate (L/min): 3 L/min General appearance: No apparent distress, appears stated age and cooperative with exam Respiratory: diminished but CTA BL Cardiovascular: Regular rate and rhythm with no murmur Abdomen: Soft, non-tender, non-distended Skin: left hip post surgical changes noted, distal pulses intact in BL LE, no edema in BL LE. Neurologic: grossly non-focal. Medications: [START ON 11/08/2022] aspirin, 81 mg, Oral, Daily atorvastatin, 40 mg, Oral, Nightly buPROPion XL, 150 mg, Oral, Nightly ceFAZolin, 2,000 mg, IntraVENous, q8h [START ON 11/08/2022] enoxaparin, 40 mg, SubCUTAneous, Daily gabapentin, 600 mg, Oral, Nightly montelukast, 10 mg, Oral, Nightly QUEtiapine, 200 mg, Oral, Nightly sertraline, 200 mg, Oral, Nightly sodium chloride 0.9%, 5-40 mL, IntraVENous, q12h tiotropium, 1 capsule, Inhalation, Daily Assessment Left intertrochanteric hip fracture Mechanical fall Ortho on consult, ORIF on 11/07/22 Labs stable, EKG, and UA reviewed CXR negative for acute pathology PT/OT eval and treat PRN pain medications Known COPD with emphysema and asthma Chronic hypoxic respiratory failure Patient is in 2-3L via NC at baseline No acute exacerbation Resume home breathing treatments, PRN duonebs MDD, chronic Resume home zoloft and wellbutrin HLD Resume statin DDD Gabapentin resumed Medical Decision Making 11/06/22: patient with mechanical fall at home with left intertrochanteric hip fracture. Ortho on consult. UA and EKG pre-op pending. NPO at midnight. PRN pain medications. NSQIP patient is at averagesurgical risk. At this time benefits of surgery outweigh risks associated with surgical intervention. Await ortho recs 11/07/22: patient underwent ORIF with screw fixation of left femoral neck fracture today by ortho surgery, patient tolerated procedure well. PT/OT eval and treat, labs in the AM. Suspect may need SNF.CM to follow. -am labs, replace lytes prn -increase activity -resume home medications as indicated -DVT prophylaxis: [x] Lovenox [] Heparin [] SCDs [x] Encourage ambulation [] Already on Anticoagulation Anticipated Discharge - Date - 11/08 vs 11/09 - Location - Home - Pending the following - clearance by ortho, PT/OT eval and treat. Auth? Toxic drug monitoring/narrow therapeutic index drug monitoring : # Drug name : # Route administered : # Method of monitoring : Extended Emergency Contact Information Primary Emergency Contact: Karishma Deluca Relation: Child Secondary Emergency Contact: Jace Deluca Relation: Child Raul Whipple DO Division of Hospitalist Medicine Inpatient Medical Services/[employer] PAGER: Epic chat documented in this [place]08-21-2023 Note* Care Coordination - Phillip Gurrola RN - 11/08/2022 11:20 AM EDT Tasked [facility] to submit for auth for [facility]. . [facility] [id number] Note* Care Coordination - Phillip Gurrola RN - 11/08/2022 11:20 AM EDT Tasked [facility] to submit for auth for [facility]. . [facility] [id number] Nurse Note* Austyn Bee RN - 11/08/2022 10:58 AM EDT Pt. found with vape in bed. When asking pt. about using the vape, pt stated, "I have been using this since I've been here" Patient educated on no smoking/vaping policy. Vape removed and placed in chart box. Protective services notified. Dr. Whipple notified. See orders. [facility] [id number] Nurse Note* Austyn Bee RN - 11/08/2022 10:58 AM EDT Pt. found with vape in bed. When asking pt. about using the vape, pt stated, "I have been using this since I've been here" Patient educated on no smoking/vaping policy. Vape removed and placed in chart box. Protective services notified. Dr. Whipple notified. See orders. documented in this encounterSProMedica Defiance [facility] [id number] Miscellaneous Notes* Telephone Encounter - Whit Shay LPN - 11/08/2022 8:17 AM EDT Medication is pended. Last visit: 09/15/22 Next visit: 03/17/23 [facility]* Care Coordination - Phillip Gurrola RN - 11/08/2022 6:59 AM EDT Images from the original note were not included. Care Management Progress Note Awaiting therapy evals and recommendations. Per careport. [facility] is able to accept. Will need insurance auth. Did send message to them to determine if would have bed available tomorrow. Labs stable this morning. Pain 5-8. Discharge plan snf Discharge Milestones and Delays Expected Date/Time: 11/08/[address] discharge order Complete med reconciliation Case mgmt discharge readiness Clinical Stability Diagnsotic Workup Expected Discharge History Expected Date/Time Set By Reviewed At 11/08/2022 Austyn Valentinlupillo, DO 11/06/2022 4:18 PM 11/08/2022 Austyn Valentinlupillo, DO 11/06/2022 3:22 PM Length of Stay (Days): 2 GMLOS: No GMLOS Documented . [facility] [id number] Note* Care Coordination - Phillip Gurrola RN - 11/08/2022 6:59 AM EDT Images from the original note were not included. Care Management Progress Note Awaiting therapy evals and recommendations. Per careport. [facility] is able to accept. Will need insurance auth. Did send message to them to determine if would have bed available tomorrow. Labs stable this morning. Pain 5-8. Discharge plan snf Discharge Milestones and Delays Expected Date/Time: 11/08/[address] discharge order Complete med reconciliation Case mgmt discharge readiness Clinical Stability Diagnsotic Workup Expected Discharge History Expected Date/Time Set By Reviewed At 11/08/2022 Austyn Frost Jorge, DO 11/06/2022 4:18 PM 11/08/2022 Austyn Mccann, DO 11/06/2022 3:22 PM Length of Stay (Days): 2 GMLOS: No GMLOS Documented . [facility] [id number] Plan of care note* Care Plan - Tona Barroso RN - 11/07/2022 9:03 PM EDT The patient is Moderately Stable - Low risk of patient condition declining or worsening The patient's goals for the shift include "Pain control and rest." The clinical goals for the shift include Safety [facility] [id number] Note* Home Care - Rosa Elena Isaac LPN - 11/07/2022 4:39 PM EDT Desk Maker following case for Discharge Needs. [place] [id number] Note* Home Care - Rosa Elena Isaac LPN - 11/07/2022 4:39 PM EDT Desk Maker following case for Discharge Needs. [place] [id number] Note* Care Coordination - Phillip Gurrola RN - 11/07/2022 4:20 PM EDT Care Managment Initial Assessment Date: 11/07/2022 Patient Name: Gonzalo Deluca : 1955 Patient Information Source of Information: Patient Name/Contact Information: KARISHMA DELUCA [phone] LOWELL AND JACE DELUCA SON [phone] Cognition/Language: WFL - Within Functional Limits Permission given to speak with patient financial sales representative/caregiver as indicated: Yes Confirmation of Payer with patient/family: Yes Payer Name: [facility] DUAL COMPLETE : No Confirmation of Primary Care Physician: Confirmed PCP Name: DR. CASE Seen in last 2 years?: Yes Primary Caregiver: Self If assistance needed, confirmed caregiver ready, willing and able to care for patient at discharge:Yes Confirmed with: PER PATIENT DAUGHTER Living Arrangements Current Residence: House Number of Floors 2 (SPLIT LEVEL) Number of Entry Steps: 1 Bed/Bath Levels: Both first floor Facility: Facility Name: NA Plan to Return: No Lives with: Children (DAUGHTER, DAUGHTER'S BOYFRIEND AND 6 YR OLD GRANDDAUGHTER) Support Systems: Children Activities of Daily Living Ambulation: Independent Bathing/Dressing: Independent Elimination/Continence/Toileting: Independent Feeding: Independent Who Assists with Activities of Daily Living: NA Instrumental Activities of Daily Living Prescription Coverage: Yes Pharmacy Used: [facility] [place] Medication Management: Prescription pick-up Who assists with medication securing and setup?: DAUGHTER PICKS UP MEDS OR HAS THEM DELIVERED Transportation/Shopping: Assistance Provider Transportation/Shopping Assistance Provider Name: DAUGHTER Transportation Mode: Car Needs Assistance with Transportation at Discharge: Yes (IF DC'D TO SNF) Meal Preparation: Assistance Provider Meal Prep Assistance Provider Name: DAUGHTERS BOYFRIEND Laundry/Cleaning: Assistance Provider Laundry/Cleaning Assistance Provider Name: DAUGHTER Finances/Bill Paying: Independent Communication: Independent Types of Care Services/Equipment Utilized Care Services: Dialysis Type: NA Durable Medical Equipment: Shower Seat, Oxygen (Continuous or prn) Oxygen Flow Rate: 2.5 LITERS CONT DME Provider: TRACI Patient's Goal/Discharge Plan Patient expects to be discharged to: RETIREMENT FACILITY Discharge Planning Actions: Snf Facility referral indicated [place] choice: [place] discussed, Choice list provided Patient's Choice Rights and [employer] and Collaborative Relationships Disclosed as Indicated for Post-Acute Care: Yes Interdisciplinary Team Engagement: PT/OT, Home Health Care Social Work Referral for: Additional Information: Inpatient status from home with left femur fracture. Ortho consulted. OR this morning-: Percutaneous cannulated screw fixation left femoral neck fracture. Daily labs, pt/ot. Discharge preparation checklist reviewed with patient. She lives at home with her daughter and her daughter's boyfriend. Theylive in a split level home. Her bedroom and bathroom are on the main floor. Discussed possible therapy needs upon discharge. List of in network facilities given to her. She states she is planning discharging to a [facility] facility and would like to go to facility in [place] where her daughter's friend works-[employer] [facility]. Will place referral in [facility] to determine if bed is available and if fa [facility] is in network with patient's [facility]. Did instruct patient to choose 3 other facilities in case there is no bed available at [facility]. Will have home care follow peripherally should therapy recommend home with hhc. Tentative discharge plan is home with hhc vs snf when medically stable/accepting facility and auth obtained. Phillip Gurrola RN [facility] [id number] Note* Care Coordination - Phillip Gurrola RN - 11/07/2022 4:20 PM EDT Care Managment Initial Assessment Date: 11/07/2022 Patient Name: Gonzalo Deluca : 1955 Patient Information Source of Information: Patient Name/Contact Information: KARISHMA DELUCA [phone] DAROCEEDeirdre AND JACE DELUCA SON [phone] Cognition/Language: WFL - Within Functional Limits Permission given to speak with patient financial sales representative/caregiver as indicated: Yes Confirmation of Payer with patient/family: Yes Payer Name: [facility] DUAL COMPLETE : No Confirmation of Primary Care Physician: Confirmed PCP Name: DR. CASE Seen in last 2 years?: Yes Primary Caregiver: Self If assistance needed, confirmed caregiver ready, willing and able to care for patient at discharge:Yes Confirmed with: PER PATIENT DAUGHTER Living Arrangements Current Residence: House Number of Floors 2 (SPLIT LEVEL) Number of Entry Steps: 1 Bed/Bath Levels: Both first floor Facility: Facility Name: NA Plan to Return: No Lives with: Children (DAUGHTER, DAUGHTER'S BOYFRIEND AND 6 YR OLD GRANDDAUGHTER) Support Systems: Children Activities of Daily Living Ambulation: Independent Bathing/Dressing: Independent Elimination/Continence/Toileting: Independent Feeding: Independent Who Assists with Activities of Daily Living: NA Instrumental Activities of Daily Living Prescription Coverage: Yes Pharmacy Used: [facility] [place] Medication Management: Prescription pick-up Who assists with medication securing and setup?: DAUGHTER PICKS UP MEDS OR HAS THEM DELIVERED Transportation/Shopping: Assistance Provider Transportation/Shopping Assistance Provider Name: DAUGHTER Transportation Mode: Car Needs Assistance with Transportation at Discharge: Yes (IF DC'D TO SNF) Meal Preparation: Assistance Provider Meal Prep Assistance Provider Name: DAUGHTERS BOYFRIEND Laundry/Cleaning: Assistance Provider Laundry/Cleaning Assistance Provider Name: DAUGHTER Finances/Bill Paying: Independent Communication: Independent Types of Care Services/Equipment Utilized Care Services: Dialysis Type: NA Durable Medical Equipment: Shower Seat, Oxygen (Continuous or prn) Oxygen Flow Rate: 2.5 LITERS CONT DME Provider: TRACI Patient's Goal/Discharge Plan Patient expects to be discharged to: RETIREMENT FACILITY Discharge Planning Actions: Snf Facility referral indicated [place]: [place] discussed, Choice list provided Patient's Choice Rights and [employer] and Collaborative Relationships Disclosed as Indicated for Post-Acute Care: Yes Interdisciplinary Team Engagement: PT/OT, Home Health Care Social Work Referral for: Additional Information: Inpatient status from home with left femur fracture. Ortho consulted. OR this morning-: Percutaneous cannulated screw fixation left femoral neck fracture. Daily labs, pt/ot. Discharge preparation checklist reviewed with patient. She lives at home with her daughter and her daughter's boyfriend. Theylive in a split level home. Her bedroom and bathroom are on the main floor. Discussed possible therapy needs upon discharge. List of in network facilities given to her. She states she is planning discharging to a usp facility and would like to go to facility in [place] where her daughter's friend works-[employer] [facility] [employer] [facility]. [facility] and if fa cility is in network with patient's [facility]. Did instruct patient to choose 3 other facilities in case there is no bed available at [facility]. Will have home care follow peripherally should therapy recommend home with hhc. Tentative discharge plan is home with hhc vs snf when medically stable/accepting facility and auth obtained. Phillip Gurrola RN [facility] [id number] Note* Op Note - Andres Ventura MD - 11/07/2022 8:14 AM EDT Preoperative diagnosis: Left nondisplaced valgus impacted subcapital femoral neck fracture Postoperative diagnosis: Same Procedure: Percutaneous cannulated screw fixation left femoral neck fracture Surgeon: Andres Ventura MD Avionics Installer: Jono HARRIS Anesthesia: General Estimate blood loss: 5 mL Fluids: Crystalloid per anesthesia notes Medications: Ancef 2 g IV Complications: None Implants: Three 7.3 mm cannulated screws from [employer] Clinical history and operative indications: The patient is a 66-year-old female who sustained a mechanical fall from standing height at home yesterday morning on November 06, 2022. She presented emergency department with left hip pain and inability to ambulate. Radiographic findings were consistent with a nondisplaced valgus impacted subcapital fracture of the left hip. I recommended percutaneous fixation. The procedure was explained in detail to the patient including potential risks and complications. All of her questions were answered and no guarantees were made or implied. There were no medical contraindications to surgery and informed consent was signed. Operative summary: The patient was taken the operating room on the morning of November 15 in stable condition. A nerve block was performed by the anesthesia team in the holding area. A general anesthetic was induced on her hospital bed. She is then transferred to the fracture table. The perineal post was placed and herpelvis was stabilized against the post. Her well leg was flexed and abducted out of the surgical field. The left foot was placed into the fracture table boot. Care taken to pad all of her bony prominences. Gentle traction and internal rotation was applied to the left hip. The C-arm was brought in to image the hip. C-arm confirmed anatomic reduction of her nondisplaced fracture. The left hip was then prepped and draped in usual sterile orthopedic fashion and I began the procedure. Using C arm guidance, a small stab incision was made over the lateral aspect of the left femur in line with the lesser trochanter. Deep dissection was done with a hemostat. A guidepin from the [employer] 7.3 mm cannulated screw set was then introduced into the femoral neck. The first pin was placed low on the neck on the AP view and centrally on the lateral view. With his first pin in appropriate position, the parallel pin guide was used to place 2 more pins superior to the first, 1 slightly anterior and one slightly posterior. This gave us an inverted triangular orientation of the pins. We measured the length of our screws off the pins. We overdrilled in the usual fashion. Short threaded screws were then placed carefully. Excellent bony purchase was achieved with all 3 screws. We achieved good compression across the fracture site. The guidepins were removed and that completed the procedure. Final AP and lateral images were taken with the C arm. C-arm confirmed an anatomic reduction of thefracture and good position of the screws. The wound was thoroughly irrigated before closure. Subcutaneous tissue was reapproximated with 2-0 Vicryl in interrupted fashion. Skin was closed with 4-0 Monocryl in running subcuticular fashion. Dermabond and a Silverlon dressing was applied. Patient was awakened without difficulty and was taken to recovery in stable condition. [id number] Note* Op Note - Andres Ventura MD - 11/07/2022 8:14 AM EDT Preoperative diagnosis: Left nondisplaced valgus impacted subcapital femoral neck fracture Postoperative diagnosis: Same Procedure: Percutaneous cannulated screw fixation left femoral neck fracture Surgeon: Andres Ventura MD Avionics Installer: Jono HARRIS Anesthesia: General Estimate blood loss: 5 mL Fluids: Crystalloid per anesthesia notes Medications: Ancef 2 g IV Complications: None Implants: Three 7.3 mm cannulated screws from [employer] Clinical history and operative indications: The patient is a 66-year-old female who sustained a mechanical fall from standing height at home yesterday morning on November 06, 2022. She presented emergency department with left hip pain and inability to ambulate. Radiographic findings were consistent with a nondisplaced valgus impacted subcapital fracture of the left hip. I recommended percutaneous fixation. The procedure was explained in detail to the patient including potential risks and complications. All of her questions were answered and no guarantees were made or implied. There were no medical contraindications to surgery and informed consent was signed. Operative summary: The patient was taken the operating room on the morning of November 15 in stable condition. A nerve block was performed by the anesthesia team in the holding area. A general anesthetic was induced on her hospital bed. She is then transferred to the fracture table. The perineal post was placed and herpelvis was stabilized against the post. Her well leg was flexed and abducted out of the surgical field. The left foot was placed into the fracture table boot. Care taken to pad all of her bony prominences. Gentle traction and internal rotation was applied to the left hip. The C-arm was brought in to image the hip. C-arm confirmed anatomic reduction of her nondisplaced fracture. The left hip was then prepped and draped in usual sterile orthopedic fashion and I began the procedure. Using C arm guidance, a small stab incision was made over the lateral aspect of the left femur in line with the lesser trochanter. Deep dissection was done with a hemostat. A guidepin from the [employer] 7.3 mm cannulated screw set was then introduced into the femoral neck. The first pin was placed low on the neck on the AP view and centrally on the lateral view. With his first pin in appropriate position, the parallel pin guide was used to place 2 more pins superior to the first, 1 slightly anterior and one slightly posterior. This gave us an inverted triangular orientation of the pins. We measured the length of our screws off the pins. We overdrilled in the usual fashion. Short threaded screws were then placed carefully. Excellent bony purchase was achieved with all 3 screws. We achieved good compression across the fracture site. The guidepins were removed and that completed the procedure. Final AP and lateral images were taken with the C arm. C-arm confirmed an anatomic reduction of thefracture and good position of the screws. The wound was thoroughly irrigated before closure. Subcutaneous tissue was reapproximated with 2-0 Vicryl in interrupted fashion. Skin was closed with 4-0 Monocryl in running subcuticular fashion. Dermabond and a Silverlon dressing was applied. Patient was awakened without difficulty and was taken to recovery in stable condition. [facility] [id number] Plan of care note* Care Plan - Tona Barroso RN - 11/06/2022 11:24 PM EDT The patient is Moderately Stable - Low risk of patient condition declining or worsening The patient's goals for the shift include "Pain control and rest." The clinical goals for the shift include Safety [facility] [id number] Consult note* Andres Ventura MD - 11/06/2022 5:53 PM EDTAssociated Order(s): IP CONSULT TO ORTHOPAEDIC SURGERY Consult received for left hip fracture. Chart and imaging reviewed remotely. 66 yo WF tripped and fell at home this morning. X-ray was misread as intertrochanteric fracture of the left hip. This is a valgus impacted subcapital FNF. I recommend percutaneous cannulated screw fixation. No medical contraindications to surgery. She is on the OR schedule for 8 AM tomorrow. I will see her preop in the holding area to obtain informed consent. [facility] [id number] Consult note* Andres Ventura MD - 11/06/2022 5:53 PM EDTAssociated Order(s): IP CONSULT TO ORTHOPAEDIC SURGERY Consult received for left hip fracture. Chart and imaging reviewed remotely. 66 yo WF tripped and fell at home this morning. X-ray was misread as intertrochanteric fracture of the left hip. This is a valgus impacted subcapital FNF. I recommend percutaneous cannulated screw fixation. No medical contraindications to surgery. She is on the OR schedule for 8 AM tomorrow. I will see her preop in the holding area to obtain informed consent. documented in this encounterSProMedica Defiance Regional [id number] Emergency department Note* Gwen Solorzano RN - 11/06/2022 4:06 PM EDT Spoke with patient about which medications she has taken today, patient states that she take all medications nightly. Change medications to be given nightly. Gwen Solorzano RN 11/06/22 7128 [facility] [id number] Emergency department Note* Gwen Solorzano RN - 11/06/2022 4:06 PM EDT Spoke with patient about which medications she has taken today, patient states that she take all medications nightly. Change medications to be given nightly. Gwen Solorzano RN 11/06/22 1607 * VERA Kraft - 11/06/2022 1:02 PM EDT Guided Karishma back VERA Kraft 11/06/22 1302 * VERA Kraft - 11/06/2022 12:57 PM EDT Introduced myself as pt liaison and explaiined role and provided support to daughter Karishma in [place] , pt arrived via EMS. VERA Kraft 11/06/22 1258 * Austyn Mccann DO - 11/06/2022 12:49 PM EDT EMERGENCY DEPARTMENT ENCOUNTER Pt Name: Gonzalo Deluca Birthdate 1955 Date of evaluation: 11/06/2022 ED Provider: Austyn Mccann DO CHIEF COMPLAINT Chief Complaint Patient presents with Hip Pain Hand Pain HISTORY OF PRESENT ILLNESS (Location/Symptom, Timing/Onset, Context/Setting, Quality, Duration, Modifying Factors, Severity) Note limiting factors. I wore appropriate PPE for the entirety of this encounter. HPI Gonzalo Deluca is a 66 y.o. female who presents to the emergency department status post fall. The patient reports that she tripped on her feet and fell to the ground. She denies hitting her head or loss of consciousness. The patient has a history of COPD wears oxygen at baseline. She reports pain in her left hip and right hand. Denies numbness or weakness. Nursing Notes were reviewed. Limitations to history: Outside historians: REVIEW OF SYSTEMS Review of Systems Musculoskeletal: Positive for left hip pain and right hand pain PAST MEDICAL HISTORY Past Medical History: Diagnosis Date Abnormal stress test Allergic rhinitis Arthritis Asthma Bronchitis Cancer (CMS/HCC) ([facility]) skin Cervical cancer (CMS/HCC) (HCC) Chest pain COPD (chronic obstructive pulmonary disease) (HCC) USE OXYGEN 3 L AT NIGHT DDD (degenerative disc disease), cervical Defect, retina, with detachment right DJD (degenerative joint disease), lumbar Emphysema lung (HCC) Former smoker Hematuria SCHEDULED FOR THE PROCEDURE /SURGERY ON 02/11/2017 Hypokalemia Lung nodules Osteoporosis Palpitations Pneumonia Recurrent major depression (HCC) Sciatica Thoracic compression fracture ([facility]) Vitamin D deficiency SURGICAL HISTORY Past Surgical History: Procedure Laterality Date CYSTOSCOPY 01/12/2017 OFFICE PROCEDURE CYSTOSCOPY 02/11/2017 C&P bladder biopsy EYE SURGERY detached retina 1994 HYSTERECTOMY 11/06/2019 ABDOMINAL RADICAL HYSTERECTOMY WITH BSO AND PELVIC LYMPH; DR. ZIYAD FISH OTHER SURGICAL HISTORY Left 12/19/2019 Med Port POWER Regular Size TUBAL LIGATION 1992 CURRENT MEDICATIONS Previous Medications ALBUTEROL 108 (90 BASE) MCG/ACT INHALER Inhale 2 puffs every 4 hours as needed. ALENDRONATE (FOSAMAX) 70 MG TABLET Take 70 mg by mouth once a week. ASPIRIN 81 MG EC TABLET Take 81 mg by mouth. ATORVASTATIN (LIPITOR) 40 MG TABLET Take 1 tablet by mouth Nightly. BUPROPION XL (WELLBUTRIN XL) 150 MG 24 HR TABLET Take 150 mg by mouth in the morning. CALCIUM CARBONATE-CHOLECALCIFEROL (OYSTER SHELL) 250-3.125 MG-MCG TABLET Take 1 tablet by mouth. CLONAZEPAM (KLONOPIN) 0.5 MG TABLET Take 1 tablet by mouth Nightly. DIPHENHYDRAMINE (SOMINEX) 25 MG TABLET Take 25 mg by mouth. FLUTICASONE (FLONASE) 50 MCG/ACT NASAL SPRAY 2 sprays in the morning. FLUTICASONE FUROATE-VILANTEROL (BREO ELLIPTA) 200-25 MCG/ACT AEROSOL POWDER Inhale 1 puff daily. GABAPENTIN (NEURONTIN) 600 MG TABLET Take 1 tablet by mouth daily. MAGNESIUM OXIDE (MAG-OX) 400 MG TABLET 400 mg daily. MONTELUKAST (SINGULAIR) 10 MG TABLET Take 10 mg by mouth Nightly. POTASSIUM CHLORIDE CR (KLOR-CON M20) 20 MEQ ER TABLET Take 2 tablets by mouth daily. SERTRALINE (ZOLOFT) 100 MG TABLET Take 200 mg by mouth in the morning. TIOTROPIUM (SPIRIVA RESPIMAT) 2.5 MCG/ACT INHALER Inhale 2 puffs in the morning. ZINC 50 MG CAPSULE Take 50 mg by mouth. ALLERGIES Pollen extract FAMILY HISTORY Family History Problem Relation Name Age of Onset Colon cancer Neg Hx Ovarian cancer Neg Hx Cancer Mother breast- to liver Cancer Sister breast Cancer Father lung to brain No Known Problems Brother Uterine cancer Neg Hx SOCIAL HISTORY Social History Socioeconomic History Marital status: Tobacco Use Smoking status: Former Packs/day: 1.50 Types: Cigarettes Quit date: 09/20/2011 Years since quittin.1 Smokeless tobacco: Never Tobacco comments: Quit smoking: pt states she quit 4-5 years ago Substance and Sexual Activity Alcohol use: Not Currently Comment: Approx once a year Drug use: No Social Determinants of Health Intimate Partner Violence: Not At Risk (05/21/2022) Humiliation, Afraid, Rape, and Kick questionnaire Fear of Current or Ex-Partner: No Emotionally Abused: No Physically Abused: No Sexually Abused: No SCREENINGS PHYSICAL EXAM ED Triage Vitals Temp Pulse Resp BP -- -- -- -- SpO2 Temp src Heart Rate Source Patient Position -- -- -- -- BP Location FiO2 (%) -- -- Physical Exam Constitutional: General: She is not in acute distress. Appearance: Normal appearance. She is not ill-appearing, toxic-appearing or diaphoretic. HENT: Head: Atraumatic. Comments: No scalp hematoma Musculoskeletal: Comments: Tenderness to palpation of the left hip, pain with passive range of motion. Left lower extremity is neurovascular intact. Tenderness to the right third MCP. No midline spinal tenderness. No other long bone deformities or tenderness. Skin: Capillary Refill: Capillary refill takes less than 2 seconds. Comments: Swelling and bruising noted to the right third MCP. Neurological: General: No focal deficit present. Mental Status: She is alert. DIAGNOSTIC RESULTS RADIOLOGY (Per Emergency Physician): Interpretation per the Radiologist below, if available at the time of this note: XR hand 3+ views right Final Result No fracture or acute osseous injury. Report Dictated on Electronically Signed By: Ankit Tripathi MD Electronically Signed Date/Time: 11/06/2022 2:14 PM EDT XR hip left 2 or 3 views Final Result Impression: Intertrochanteric left hip fracture, with foreshortening of the fracture fragments. Report Dictated on Electronically Signed By: Ankit Tripathi MD Electronically Signed Date/Time: 11/06/2022 2:28 PM EDT XR ribs 2 views left Final Result 1. No acute cardiopulmonary disease. 2. Pulmonary hyperinflation. 3. Normal ribs. Report Dictated on Electronically Signed By: Ankit Tripathi MD Electronically Signed Date/Time: 11/06/2022 2:26 PM EDT LABS: Labs Reviewed BASIC METABOLIC PANEL - Abnormal Result Value SODIUM 137 POTASSIUM 3.5 CHLORIDE 105 CARBON DIOXIDE 30 UREA NITROGEN 12 CREATININE 0.66 GLUCOSE 99 CALCIUM 8.4 ANION GAP 2 (*) eGFR >90.0 CBC (HEMOGRAM) - Abnormal Auto WBC 10.3 RBC 3.91 Hemoglobin 12.1 Hematocrit 36.4 MCV 93.2 MCH 31.0 MCHC 33.3 RDW 14.9 (*) Platelets 238 MPV 7.2 (*) All other labs were within normal range or not returned as of this dictation. EMERGENCY DEPARTMENT COURSE and DIFFERENTIAL DIAGNOSIS/MDM: Vitals: Vitals: 11/06/22 1254 11/06/22 1259 BP: 89/79 116/88 Pulse: 92 Resp: 20 Temp: 37.1 C (98.7 F) TempSrc: Oral SpO2: 92% Weight: 59 kg (130 lb) Medications oxyCODONE (Roxicodone) immediate release tablet 5 mg (has no administration in time range) acetaminophen (Tylenol) tablet 1,000 mg (1,000 mg Oral Given 11/06/22 1305) oxyCODONE (Roxicodone) immediate release tablet 5 mg (5 mg Oral Given 11/06/22 1305) MDM The patient presented with chief complaint of left hip pain and right hand pain status post fall. See history and physical exam above. Differential diagnosis includes but is not limited to hip fracture, hand fracture. Plain films ordered. The patient was given medications as above for acute pain. To aid in management, I performed an independent interpretation of all laboratory tests, EKG, imaging, and other diagnostics ordered. Plain films reveal left intertrochanteric hip fracture as interpreted by me, see radiologist reportfor details. Orthopedics, Dr. Gresham, was consulted. The patient will be admitted to medicine. Discussed the case with admitting physician, Dr. Whipple, who was agreeable. Patient's care was impacted by COPD. I Austyn Mccann DO am the custom feed mill operator helper of record. PROCEDURES: Unless otherwise noted below, none Procedures FINAL IMPRESSION 1. Closed displaced intertrochanteric fracture of left femur, initial encounter ([facility]) DISPOSITION Admit 11/06/2022 03:22:00 PM PATIENT REFERRED TO: No follow-up provider specified. DISCHARGE MEDICATIONS: New Prescriptions No medications on file (Comment: Please note this report has been produced using speech recognition software and may contain errors related to that system including errors in grammar, punctuation, and spelling, as well as words and phrases that may be inappropriate. If there are any questions or concerns please feel freeto contact the dictating provider for clarification.) Austyn Mccann DO (electronically signed) Emergency Medicine Provider Austyn Mccann DO 11/06/22 1523 * Gwen Solorzano RN - 11/06/2022 12:49 PM EDT Patient presents to the ED via EMS. Patient had a mechanical fall in her room due to tripped over her feet. Patient denies hitting head. Patient states she has balance issues at baseline and uses assistance to walk. Patient is resting comfortably with family at bedside. * Shelley Verdugo RN - 11/06/2022 12:49 PM EDT Bed: 04 Expected date: Expected time: Means of arrival: Comments: Jean 67/F Fall with L hip pain Shelley Verdugo RN 11/06/22 1250 documented in this [place]08-19-2023 History and physical note* Raul Whipple DO - 11/06/2022 3:23 PM EDT Images from the original note were not included. Attending History and Physical Admit Date: 11/06/2022 PCP: HERMINIA CASE MD CHIEF COMPLAINT: mechanical fall Reason for Admission: left hip fracture History Obtained From: patient HISTORY OF PRESENT ILLNESS: Gonzalo is a 66 y.o. female with past medical history hx of smoking, COPD with emphysema and Asthma, HLD, anxiety/depression. who presents to [facility] on 11/06/2022 with chief complaint of fall at home. Patient reports tripping over her own feet and landing on her left side. EMS called, patient transportedto the ED for further evaluation. Denies chest pain, sob, abdominal pain, nausea, vomiting, diarrhea, constipation, fevers, or chills. While in the ED, Initial vitals showed VSS. Initial Labs showed largely stable labs. Imaging showedneagtive xray right hand, negative left ribs xray, positive xray of left hip for intertrochanteric hip fracutre. Patient started on pain medications. Patient admitted for further management of acute left hip fracture and mechanical fall at home. Past Medical History: Past Medical History: Diagnosis Date Abnormal stress test Allergic rhinitis Arthritis Asthma Bronchitis Cancer ([facility]) ([facility]) skin Cervical cancer ([facility]) ([facility]) Chest pain COPD (chronic obstructive pulmonary disease) ([facility]) USE OXYGEN 3 L AT NIGHT DDD (degenerative disc disease), cervical Defect, retina, with detachment right DJD (degenerative joint disease), lumbar Emphysema lung ([facility]) Former smoker Hematuria SCHEDULED FOR THE PROCEDURE /SURGERY ON 02/11/2017 Hypokalemia Lung nodules Osteoporosis Palpitations Pneumonia Recurrent major depression ([facility]) Sciatica Thoracic compression fracture ([facility]) Vitamin D deficiency Past Surgical History: Past Surgical History: Procedure Laterality Date CYSTOSCOPY 01/12/2017 OFFICE PROCEDURE CYSTOSCOPY 02/11/2017 C&P bladder biopsy EYE SURGERY detached retina 1994 HYSTERECTOMY 11/06/2019 ABDOMINAL RADICAL HYSTERECTOMY WITH BSO AND PELVIC LYMPH; DR. ZIYAD FISH OTHER SURGICAL HISTORY Left 12/19/2019 Med Port POWER Regular Size TUBAL LIGATION 1992 Social History: Social History Socioeconomic History Marital status: Spouse name: Not on file Number of children: Not on file Years of education: Not on file Highest education level: Not on file Occupational History Not on file Tobacco Use Smoking status: Former Packs/day: 1.50 Types: Cigarettes Quit date: 09/20/2011 Years since quittin.1 Smokeless tobacco: Never Tobacco comments: Quit smoking: pt states she quit 4-5 years ago Substance and Sexual Activity Alcohol use: Not Currently Comment: Approx once a year Drug use: No Sexual activity: Not on file Other Topics Concern Not on file Social History Narrative Not on file Social Determinants of Health Financial Resource Strain: Not on file Food Insecurity: Not on file Transportation Needs: Not on file Physical Activity: Not on file Stress: Not on file Social Connections: Not on file Intimate Partner Violence: Not At Risk (05/21/2022) Humiliation, Afraid, Rape, and Kick questionnaire Fear of Current or Ex-Partner: No Emotionally Abused: No Physically Abused: No Sexually Abused: No Housing Stability: Not on file Family History: Family History Problem Relation Name Age of Onset Colon cancer Neg Hx Ovarian cancer Neg Hx Cancer Mother breast- to liver Cancer Sister breast Cancer Father lung to brain No Known Problems Brother Uterine cancer Neg Hx Medications Prior to Admission: No current facility-administered medications on file prior to encounter. Current Outpatient Medications on File Prior to Encounter Medication Sig Dispense Refill albuterol 108 (90 Base) MCG/ACT inhaler Inhale 2 puffs every 4 hours as needed. alendronate (Fosamax) 70 MG tablet Take 70 mg by mouth once a week. aspirin 81 MG EC tablet Take 81 mg by mouth. atorvastatin (Lipitor) 40 MG tablet Take 1 tablet by mouth Nightly. buPROPion XL (Wellbutrin XL) 150 MG 24 hr tablet Take 150 mg by mouth in the morning. calcium carbonate-cholecalciferol (Oyster Shell) 250-3.125 MG-MCG tablet Take 1 tablet by mouth. clonazePAM (KlonoPIN) 0.5 MG tablet Take 1 tablet by mouth Nightly. diphenhydrAMINE (Sominex) 25 MG tablet Take 25 mg by mouth. fluticasone (Flonase) 50 MCG/ACT nasal spray 2 sprays in the morning. Fluticasone Furoate-Vilanterol (Breo Ellipta) 200-25 MCG/ACT aerosol powder Inhale 1 puff daily. gabapentin (Neurontin) 600 MG tablet Take 1 tablet by mouth daily. magnesium oxide (Mag-Ox) 400 mg tablet 400 mg daily. montelukast (Singulair) 10 MG tablet Take 10 mg by mouth Nightly. potassium chloride CR (Klor-Con M20) 20 MEQ ER tablet Take 2 tablets by mouth daily. sertraline (Zoloft) 100 MG tablet Take 200 mg by mouth in the morning. tiotropium (Spiriva Respimat) 2.5 MCG/ACT inhaler Inhale 2 puffs in the morning. Zinc 50 MG capsule Take 50 mg by mouth. Allergies: Allergies Allergen Reactions Pollen Extract Unknown REVIEW OF SYSTEMS: ROS as stated in the HPI above Vitals: BP 116/88 Pulse 92 Temp 37.1 C (98.7 F) (Oral) Resp 20 Wt 130 lb (59 kg) SpO2 92% BMI 23.03 kg/m BMI Classification: Normal Weight (BMI 18.5-24.9) Pulse Ox: SpO2 Av % Min: 92 % Max: 92 % Supplemental O2: O2 Flow Rate (L/min): 3 L/min PHYSICAL EXAM: General appearance: No apparent distress, appears stated age and cooperative with exam., female in NAD Respiratory: diminished BL, no wheezing. Cardiovascular: Regular rate and rhythm with no murmur Abdomen: Soft, non-tender, non-distended Skin: Skin color, texture, turgor normal. No rashes or lesions. Left hip tenderness, distal pulses intact in BL LE, no edema in BL LE. Neurologic: grossly non-focal. DATA: CBC: Recent Labs 11/06/22 1455 WBC 10.3 RBC 3.91 HGB 12.1 HCT 36.4 MCV 93.2 RDW 14.9* PLT 238 BMP: Recent Labs 11/06/22 1455 NA 137 K 3.5 CL 105 CO2 30 BUN 12 CREATININE 0.66 GLUCOSE 99 CALCIUM 8.4 ANIONGAP 2* LIVER PROFILE:No results for input(s): AST, ALT, BILITOT, ALKPHOS, PROT in the last 72 hours. No lab exists for component: LABALBU PT/INR: No results for input(s): PROTIME, INR in the last 72 hours. CARDIAC ENZYMES: No results for input(s): TROPONINI in the last 72 hours. Procalcitonin: No results found for: PROCAL Urine Culture: No results found for this or any previous visit. COVID-19 PCR: No results for input(s): COVID19 in the last 72 hours. I reviewed: [x] laboratory results [x] radiographic results At the time of today's encounter. Pt was advised of the results. IMPRESSION: Left intertrochanteric hip fracture Mechanical fall Ortho on consult Labs stable, EKG, and UA pending CXR negative for acute pathology PT/OT eval and treat PRN pain medications NPO after midnight Known COPD with emphysema and asthma Chronic hypoxic respiratory failure Patient is in 2-3L via NC at baseline No acute exacerbation Resume home breathing treatments, PRN duonebs MDD, chronic Resume home zoloft and wellbutrin HLD Resume statin DDD Gabapentin resumed Medical Decision Makin: patient with mechanical fall at home with left intertrochanteric hip fracture. Ortho on consult. UA and EKG pre-op pending. NPO at midnight. PRN pain medications. NSQIP patient is at average surgical risk. At this time benefits of surgery outweigh risks associated with surgical intervention. Await ortho recs. -PT/OT eval/increase activity -am labs, replace lytes prn -vitals per routine -home meds as ordered -DVT prophylaxis: [] Lovenox [] Heparin [x] SCDs [x] Encourage ambulation [] Already on Anticoagulation Anticipated Discharge - Date - 11/08/22 - Location - Home vs SNF - Pending the following - ortho eval, surgery, PT/OT eval and treat, auth if needed Toxic drug monitoring/narrow therapeutic index drug monitoring : # Drug name : # Route administered : # Method of monitoring : Extended Emergency Contact Information Primary Emergency Contact: Karishma Deluca Relation: Child Secondary Emergency Contact: YosiJace Relation: Child Code status: Prior -see below for additional orders, further recommendations to follow Orders Placed This Encounter Procedures XR hip left 2 or 3 views XR hand 3+ views right XR ribs 2 views left Basic metabolic panel CBC Inpatient consult to orthopaedic surgery-- Admit to inpatient Please forward a copy of this H&P to the patient's PCP. Thank you. [id number] History and physical note* Raul Whipple DO - 11/06/2022 3:23 PM EDT Images from the original note were not included. Attending History and Physical Admit Date: 11/06/2022 PCP: HERMINIA CASE MD CHIEF COMPLAINT: mechanical fall Reason for Admission: left hip fracture History Obtained From: patient HISTORY OF PRESENT ILLNESS: Gonzalo is a 66 y.o. female with past medical history hx of smoking, COPD with emphysema and Asthma, HLD, anxiety/depression. who presents to [facility] on 11/06/2022 with chief complaint of fall at home. Patient reports tripping over her own feet and landing on her left side. EMS called, patient transportedto the ED for further evaluation. Denies chest pain, sob, abdominal pain, nausea, vomiting, diarrhea, constipation, fevers, or chills. While in the ED, Initial vitals showed VSS. Initial Labs showed largely stable labs. Imaging showedneagtive xray right hand, negative left ribs xray, positive xray of left hip for intertrochanteric hip fracutre. Patient started on pain medications. Patient admitted for further management of acute left hip fracture and mechanical fall at home. Past Medical History: Past Medical History: Diagnosis Date Abnormal stress test Allergic rhinitis Arthritis Asthma Bronchitis Cancer ([facility]) ([facility]) skin Cervical cancer (CMS/HCC) ([facility]) Chest pain COPD (chronic obstructive pulmonary disease) ([facility]) USE OXYGEN 3 L AT NIGHT DDD (degenerative disc disease), cervical Defect, retina, with detachment right DJD (degenerative joint disease), lumbar Emphysema lung ([facility]) Former smoker Hematuria SCHEDULED FOR THE PROCEDURE /SURGERY ON 02/11/2017 Hypokalemia Lung nodules Osteoporosis Palpitations Pneumonia Recurrent major depression ([facility]) Sciatica Thoracic compression fracture ([facility]) Vitamin D deficiency Past Surgical History: Past Surgical History: Procedure Laterality Date CYSTOSCOPY 01/12/2017 OFFICE PROCEDURE CYSTOSCOPY 02/11/2017 C&P bladder biopsy EYE SURGERY detached retina 1994 HYSTERECTOMY 11/06/2019 ABDOMINAL RADICAL HYSTERECTOMY WITH BSO AND PELVIC LYMPH; DR. ZIYAD FISH OTHER SURGICAL HISTORY Left 12/19/2019 Med Port POWER Regular Size TUBAL LIGATION 1992 Social History: Social History Socioeconomic History Marital status: Spouse name: Not on file Number of children: Not on file Years of education: Not on file Highest education level: Not on file Occupational History Not on file Tobacco Use Smoking status: Former Packs/day: 1.50 Types: Cigarettes Quit date: 09/20/2011 Years since quittin.1 Smokeless tobacco: Never Tobacco comments: Quit smoking: pt states she quit 4-5 years ago Substance and Sexual Activity Alcohol use: Not Currently Comment: Approx once a year Drug use: No Sexual activity: Not on file Other Topics Concern Not on file Social History Narrative Not on file Social Determinants of Health Financial Resource Strain: Not on file Food Insecurity: Not on file Transportation Needs: Not on file Physical Activity: Not on file Stress: Not on file Social Connections: Not on file Intimate Partner Violence: Not At Risk (05/21/2022) Humiliation, Afraid, Rape, and Kick questionnaire Fear of Current or Ex-Partner: No Emotionally Abused: No Physically Abused: No Sexually Abused: No Housing Stability: Not on file Family History: Family History Problem Relation Name Age of Onset Colon cancer Neg Hx Ovarian cancer Neg Hx Cancer Mother breast- to liver Cancer Sister breast Cancer Father lung to brain No Known Problems Brother Uterine cancer Neg Hx Medications Prior to Admission: No current facility-administered medications on file prior to encounter. Current Outpatient Medications on File Prior to Encounter Medication Sig Dispense Refill albuterol 108 (90 Base) MCG/ACT inhaler Inhale 2 puffs every 4 hours as needed. alendronate (Fosamax) 70 MG tablet Take 70 mg by mouth once a week. aspirin 81 MG EC tablet Take 81 mg by mouth. atorvastatin (Lipitor) 40 MG tablet Take 1 tablet by mouth Nightly. buPROPion XL (Wellbutrin XL) 150 MG 24 hr tablet Take 150 mg by mouth in the morning. calcium carbonate-cholecalciferol (Oyster Shell) 250-3.125 MG-MCG tablet Take 1 tablet by mouth. clonazePAM (KlonoPIN) 0.5 MG tablet Take 1 tablet by mouth Nightly. diphenhydrAMINE (Sominex) 25 MG tablet Take 25 mg by mouth. fluticasone (Flonase) 50 MCG/ACT nasal spray 2 sprays in the morning. Fluticasone Furoate-Vilanterol (Breo Ellipta) 200-25 MCG/ACT aerosol powder Inhale 1 puff daily. gabapentin (Neurontin) 600 MG tablet Take 1 tablet by mouth daily. magnesium oxide (Mag-Ox) 400 mg tablet 400 mg daily. montelukast (Singulair) 10 MG tablet Take 10 mg by mouth Nightly. potassium chloride CR (Klor-Con M20) 20 MEQ ER tablet Take 2 tablets by mouth daily. sertraline (Zoloft) 100 MG tablet Take 200 mg by mouth in the morning. tiotropium (Spiriva Respimat) 2.5 MCG/ACT inhaler Inhale 2 puffs in the morning. Zinc 50 MG capsule Take 50 mg by mouth. Allergies: Allergies Allergen Reactions Pollen Extract Unknown REVIEW OF SYSTEMS: ROS as stated in the HPI above Vitals: BP 116/88 Pulse 92 Temp 37.1 C (98.7 F) (Oral) Resp 20 Wt 130 lb (59 kg) SpO2 92% BMI 23.03 kg/m BMI Classification: Normal Weight (BMI 18.5-24.9) Pulse Ox: SpO2 Av % Min: 92 % Max: 92 % Supplemental O2: O2 Flow Rate (L/min): 3 L/min PHYSICAL EXAM: General appearance: No apparent distress, appears stated age and cooperative with exam., female in NAD Respiratory: diminished BL, no wheezing. Cardiovascular: Regular rate and rhythm with no murmur Abdomen: Soft, non-tender, non-distended Skin: Skin color, texture, turgor normal. No rashes or lesions. Left hip tenderness, distal pulses intact in BL LE, no edema in BL LE. Neurologic: grossly non-focal. DATA: CBC: Recent Labs 11/06/22 1455 WBC 10.3 RBC 3.91 HGB 12.1 HCT 36.4 MCV 93.2 RDW 14.9* PLT 238 BMP: Recent Labs 11/06/22 1455 NA 137 K 3.5 CL 105 CO2 30 BUN 12 CREATININE 0.66 GLUCOSE 99 CALCIUM 8.4 ANIONGAP 2* LIVER PROFILE:No results for input(s): AST, ALT, BILITOT, ALKPHOS, PROT in the last 72 hours. No lab exists for component: LABALBU PT/INR: No results for input(s): PROTIME, INR in the last 72 hours. CARDIAC ENZYMES: No results for input(s): TROPONINI in the last 72 hours. Procalcitonin: No results found for: PROCAL Urine Culture: No results found for this or any previous visit. COVID-19 PCR: No results for input(s): COVID19 in the last 72 hours. I reviewed: [x] laboratory results [x] radiographic results At the time of today's encounter. Pt was advised of the results. IMPRESSION: Left intertrochanteric hip fracture Mechanical fall Ortho on consult Labs stable, EKG, and UA pending CXR negative for acute pathology PT/OT eval and treat PRN pain medications NPO after midnight Known COPD with emphysema and asthma Chronic hypoxic respiratory failure Patient is in 2-3L via NC at baseline No acute exacerbation Resume home breathing treatments, PRN duonebs MDD, chronic Resume home zoloft and wellbutrin HLD Resume statin DDD Gabapentin resumed Medical Decision Makin: patient with mechanical fall at home with left intertrochanteric hip fracture. Ortho on consult. UA and EKG pre-op pending. NPO at midnight. PRN pain medications. NSQIP patient is at average surgical risk. At this time benefits of surgery outweigh risks associated with surgical intervention. Await ortho recs. -PT/OT eval/increase activity -am labs, replace lytes prn -vitals per routine -home meds as ordered -DVT prophylaxis: [] Lovenox [] Heparin [x] SCDs [x] Encourage ambulation [] Already on Anticoagulation Anticipated Discharge - Date - 11/08/22 - Location - Home vs SNF - Pending the following - ortho eval, surgery, PT/OT eval and treat, auth if needed Toxic drug monitoring/narrow therapeutic index drug monitoring : # Drug name : # Route administered : # Method of monitoring : Extended Emergency Contact Information Primary Emergency Contact: Karishma Deluca Relation: Child Secondary Emergency Contact: Jace Deluca Relation: Child Code status: Prior -see below for additional orders, further recommendations to follow Orders Placed This Encounter Procedures XR hip left 2 or 3 views XR hand 3+ views right XR ribs 2 views left Basic metabolic panel CBC Inpatient consult to orthopaedic surgery-- Admit to inpatient Please forward a copy of this H&P to the patient's PCP. Thank you. documented in this encounterSumma [id number] Emergency department Note* VERA Kraft - 11/06/2022 1:02 PM EDT Guided Karishma back VERA Kraft 11/06/22 1302 [id number] Emergency department Note* VERA Kraft - 11/06/2022 12:57 PM EDT Introduced myself as pt liaison and explaiined role and provided support to [facility] , pt arrived via EMS. VERA Kraft 11/06/22 1258 [id number] Emergency department Note* Shelley Verdugo RN - 11/06/2022 12:49 PM EDT Bed: 04 Expected date: Expected time: Means of arrival: Comments: Jean 67/F Fall with L hip pain Shelley Verdugo RN 11/06/22 1250 [id number] Emergency department Triage note* Gwen Solorzano RN - 11/06/2022 12:49 PM EDT Patient presents to the ED via EMS. Patient had a mechanical fall in her room due to tripped over her feet. Patient denies hitting head. Patient states she has balance issues at baseline and uses assistance to walk. Patient is resting comfortably with family at bedside. [id number] Physician Emergency department Note* Austyn Mccann DO - 11/06/2022 12:49 PM EDT EMERGENCY DEPARTMENT ENCOUNTER Pt Name: Gonzalo Deluca Birthdate 1955 Date of evaluation: 11/06/2022 ED Provider: Austyn Mccann DO CHIEF COMPLAINT Chief Complaint Patient presents with Hip Pain Hand Pain HISTORY OF PRESENT ILLNESS (Location/Symptom, Timing/Onset, Context/Setting, Quality, Duration, Modifying Factors, Severity) Note limiting factors. I wore appropriate PPE for the entirety of this encounter. HPI Gonzalo Deluca is a 66 y.o. female who presents to the emergency department status post fall. The patient reports that she tripped on her feet and fell to the ground. She denies hitting her head or loss of consciousness. The patient has a history of COPD wears oxygen at baseline. She reports pain in her left hip and right hand. Denies numbness or weakness. Nursing Notes were reviewed. Limitations to history: Outside historians: REVIEW OF SYSTEMS Review of Systems Musculoskeletal: Positive for left hip pain and right hand pain PAST MEDICAL HISTORY Past Medical History: Diagnosis Date Abnormal stress test Allergic rhinitis Arthritis Asthma Bronchitis Cancer ([facility]) ([facility]) skin Cervical cancer (CMS/HCC) ([facility]) Chest pain COPD (chronic obstructive pulmonary disease) ([facility]) USE OXYGEN 3 L AT NIGHT DDD (degenerative disc disease), cervical Defect, retina, with detachment right DJD (degenerative joint disease), lumbar Emphysema lung ([facility]) Former smoker Hematuria SCHEDULED FOR THE PROCEDURE /SURGERY ON 02/11/2017 Hypokalemia Lung nodules Osteoporosis Palpitations Pneumonia Recurrent major depression ([facility]) Sciatica Thoracic compression fracture ([facility]) Vitamin D deficiency SURGICAL HISTORY Past Surgical History: Procedure Laterality Date CYSTOSCOPY 01/12/2017 OFFICE PROCEDURE CYSTOSCOPY 02/11/2017 C&P bladder biopsy EYE SURGERY detached retina 1994 HYSTERECTOMY 11/06/2019 ABDOMINAL RADICAL HYSTERECTOMY WITH BSO AND PELVIC LYMPH; DR. ZIYAD NORWOOD OTHER SURGICAL HISTORY Left 12/19/2019 Med Port POWER Regular Size TUBAL LIGATION 1992 CURRENT MEDICATIONS Previous Medications ALBUTEROL 108 (90 BASE) MCG/ACT INHALER Inhale 2 puffs every 4 hours as needed. ALENDRONATE (FOSAMAX) 70 MG TABLET Take 70 mg by mouth once a week. ASPIRIN 81 MG EC TABLET Take 81 mg by mouth. ATORVASTATIN (LIPITOR) 40 MG TABLET Take 1 tablet by mouth Nightly. BUPROPION XL (WELLBUTRIN XL) 150 MG 24 HR TABLET Take 150 mg by mouth in the morning. CALCIUM CARBONATE-CHOLECALCIFEROL (OYSTER SHELL) 250-3.125 MG-MCG TABLET Take 1 tablet by mouth. CLONAZEPAM (KLONOPIN) 0.5 MG TABLET Take 1 tablet by mouth Nightly. DIPHENHYDRAMINE (SOMINEX) 25 MG TABLET Take 25 mg by mouth. FLUTICASONE (FLONASE) 50 MCG/ACT NASAL SPRAY 2 sprays in the morning. FLUTICASONE FUROATE-VILANTEROL (BREO ELLIPTA) 200-25 MCG/ACT AEROSOL POWDER Inhale 1 puff daily. GABAPENTIN (NEURONTIN) 600 MG TABLET Take 1 tablet by mouth daily. MAGNESIUM OXIDE (MAG-OX) 400 MG TABLET 400 mg daily. MONTELUKAST (SINGULAIR) 10 MG TABLET Take 10 mg by mouth Nightly. POTASSIUM CHLORIDE CR (KLOR-CON M20) 20 MEQ ER TABLET Take 2 tablets by mouth daily. SERTRALINE (ZOLOFT) 100 MG TABLET Take 200 mg by mouth in the morning. TIOTROPIUM (SPIRIVA RESPIMAT) 2.5 MCG/ACT INHALER Inhale 2 puffs in the morning. ZINC 50 MG CAPSULE Take 50 mg by mouth. ALLERGIES Pollen extract FAMILY HISTORY Family History Problem Relation Name Age of Onset Colon cancer Neg Hx Ovarian cancer Neg Hx Cancer Mother breast- to liver Cancer Sister breast Cancer Father lung to brain No Known Problems Brother Uterine cancer Neg Hx SOCIAL HISTORY Social History Socioeconomic History Marital status: Tobacco Use Smoking status: Former Packs/day: 1.50 Types: Cigarettes Quit date: 09/20/2011 Years since quittin.1 Smokeless tobacco: Never Tobacco comments: Quit smoking: pt states she quit 4-5 years ago Substance and Sexual Activity Alcohol use: Not Currently Comment: Approx once a year Drug use: No Social Determinants of Health Intimate Partner Violence: Not At Risk (05/21/2022) Humiliation, Afraid, Rape, and Kick questionnaire Fear of Current or Ex-Partner: No Emotionally Abused: No Physically Abused: No Sexually Abused: No SCREENINGS PHYSICAL EXAM ED Triage Vitals Temp Pulse Resp BP -- -- -- -- SpO2 Temp src Heart Rate Source Patient Position -- -- -- -- BP Location FiO2 (%) -- -- Physical Exam Constitutional: General: She is not in acute distress. Appearance: Normal appearance. She is not ill-appearing, toxic-appearing or diaphoretic. HENT: Head: Atraumatic. Comments: No scalp hematoma Musculoskeletal: Comments: Tenderness to palpation of the left hip, pain with passive range of motion. Left lower extremity is neurovascular intact. Tenderness to the right third MCP. No midline spinal tenderness. No other long bone deformities or tenderness. Skin: Capillary Refill: Capillary refill takes less than 2 seconds. Comments: Swelling and bruising noted to the right third MCP. Neurological: General: No focal deficit present. Mental Status: She is alert. DIAGNOSTIC RESULTS RADIOLOGY (Per Emergency Physician): Interpretation per the Radiologist below, if available at the time of this note: XR hand 3+ views right Final Result No fracture or acute osseous injury. Report Dictated on Electronically Signed By: Ankit Tripathi MD Electronically Signed Date/Time: 11/06/2022 2:14 PM EDT XR hip left 2 or 3 views Final Result Impression: Intertrochanteric left hip fracture, with foreshortening of the fracture fragments. Report Dictated on Electronically Signed By: Ankit Tripathi MD Electronically Signed Date/Time: 11/06/2022 2:28 PM EDT XR ribs 2 views left Final Result 1. No acute cardiopulmonary disease. 2. Pulmonary hyperinflation. 3. Normal ribs. Report Dictated on Electronically Signed By: Ankit Tripathi MD Electronically Signed Date/Time: 11/06/2022 2:26 PM EDT LABS: Labs Reviewed BASIC METABOLIC PANEL - Abnormal Result Value SODIUM 137 POTASSIUM 3.5 CHLORIDE 105 CARBON DIOXIDE 30 UREA NITROGEN 12 CREATININE 0.66 GLUCOSE 99 CALCIUM 8.4 ANION GAP 2 (*) eGFR >90.0 CBC (HEMOGRAM) - Abnormal Auto WBC 10.3 RBC 3.91 Hemoglobin 12.1 Hematocrit 36.4 MCV 93.2 MCH 31.0 MCHC 33.3 RDW 14.9 (*) Platelets 238 MPV 7.2 (*) All other labs were within normal range or not returned as of this dictation. EMERGENCY DEPARTMENT COURSE and DIFFERENTIAL DIAGNOSIS/MDM: Vitals: Vitals: 11/06/22 1254 11/06/22 1259 BP: 89/79 116/88 Pulse: 92 Resp: 20 Temp: 37.1 C (98.7 F) TempSrc: Oral SpO2: 92% Weight: 59 kg (130 lb) Medications oxyCODONE (Roxicodone) immediate release tablet 5 mg (has no administration in time range) acetaminophen (Tylenol) tablet 1,000 mg (1,000 mg Oral Given 11/06/22 1305) oxyCODONE (Roxicodone) immediate release tablet 5 mg (5 mg Oral Given 11/06/22 1305) MDM The patient presented with chief complaint of left hip pain and right hand pain status post fall. See history and physical exam above. Differential diagnosis includes but is not limited to hip fracture, hand fracture. Plain films ordered. The patient was given medications as above for acute pain. To aid in management, I performed an independent interpretation of all laboratory tests, EKG, imaging, and other diagnostics ordered. Plain films reveal left intertrochanteric hip fracture as interpreted by me, see radiologist reportfor details. Orthopedics, Dr. Gresham, was consulted. The patient will be admitted to medicine. Discussed the case with admitting physician, Dr. Whipple, who was agreeable. Patient's care was impacted by COPD. I Austyn Mccann DO am the custom feed mill operator helper of record. PROCEDURES: Unless otherwise noted below, none Procedures FINAL IMPRESSION 1. Closed displaced intertrochanteric fracture of left femur, initial encounter ([facility]) DISPOSITION Admit 11/06/2022 03:22:00 PM PATIENT REFERRED TO: No follow-up provider specified. DISCHARGE MEDICATIONS: New Prescriptions No medications on file (Comment: Please note this report has been produced using speech recognition software and may contain errors related to that system including errors in grammar, punctuation, and spelling, as well as words and phrases that may be inappropriate. If there are any questions or concerns please feel freeto contact the dictating provider for clarification.) Austyn Mccann DO (electronically signed) Emergency Medicine Provider Austyn Mccann DO 11/06/22 1523 [id number] Telephone encounter Note* Telephone Encounter - Kisha Pepe APRN - AN/SSN 2 4 OPERATOR - 10/27/2022 11:01 AM EDT With normal HPV and Pap I left a message encouraged patient to call back with any questions or concerns [facility] [employer] Phone: [phone] [phone] Miscellaneous Notes* Telephone Encounter - DB Kohli CNP - 10/27/2022 11:01 AM EDT With normal HPV and Pap I left a message encouraged patient to call back with any questions or concerns documented in this [place]08-04-2023 Miscellaneous Notes* Telephone Encounter - Whit Shay LPN - 10/22/2022 1:01 PM EDT Last appointment: 09/15/22 Next appointment: 03/17/23 Pharmacy verified in [facility]. Refill(s) requested: Requested Prescriptions Pending Prescriptions Disp Refills sertraline (ZOLOFT) 100 mg tablet [Pharmacy Med Name: SERTRALINE HCL 100 MG TABLET] 180 tablet 1 Sig: TAKE 2 TABLETS BY MOUTH EVERY DAY Order(s) pended. Please advise. Whit Shay LPN, CMA documented in this encounterVan [facility]08-03-2023 Miscellaneous Notes* Telephone Encounter - Whit Shay LPN - 10/21/2022 12:55 PM EDT Last appointment: 09/15/22 Next appointment: 03/17/23 Pharmacy verified in [facility]. Refill(s) requested: Requested Prescriptions Pending Prescriptions Disp Refills oxyCODONE-acetaminophen (PERCOCET) 5-325 mg tablet 134 tablet 0 Sig: Take 1 tablet by mouth every 4 hours as needed for pain for up to 30 days. Order(s) pended. Please advise. Whit Shay LPN, CMA documented in this encounterVan [facility]ert [facility]08-02-2023 History of Present illness Narrative* Kisha Pepe, LAMINATING PRESS OPERATOR - AN/SSN 2 4 OPERATOR - 10/20/2022 2:00 PM EDT @LOGOIMAGE@ Chief Complaint Patient presents with Follow-up Pt has no concerns HISTORY OF THE PRESENT ILLNESS: Gonzalo Deluca is a 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 Gonzalo Deluca is a 64 y.o. 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 Patient had positive lymph node on final pathology, was then treated with combined chemoradiotherapy. Patient is s/p radical hysterectomy, BSO, LND on 11/21/2019 followed by combined chemoradiotherapy. This completed on February 2020 TREATMENT PLAN: Adjuvant radiation therapy to the pelvis. INTERVAL SINCE RADIATION: 01/14/2020 - 03/03/2020 (49 days) 01/14/20 - 03/03/20: 45.00/45.00 Gy to the Pelvis in 25 fractions of 1.80 Gy using the VMAT/Daily IGRT technique with [address] scan 01/08 to follow up on lung nodules. IMPRESSION: 1. Advanced COPD. 2. Masslike structure with fibrotic changes in the right lower lobe. This has decreased slightly in size. 3. New 1.5 cm mixed groundglass/solid nodule in the periphery of the left lower lobe. A follow-up CT is recommended in approximately 3 or [address] scan on 10/14/21 to follow-up on lung nodules IMPRESSION: Spiculated nodule within the posterior right lower lobe described on the prior 12/26/2020 examination is no longer visualized. Ill-defined opacities within the lung bases bilaterally have also resolved. New ill-defined opacity within the superior segment of the left lower lobe. Given waxing waning appearance, this would most likely be infectious or inflammatory etiology. Severe upper lobe predominant centrilobular emphysematous changes. Small filling defect within the tracheobronchial tree supplying the right lower lobe. This is most likely secondary to mucous plugging. Patient is now 2 years status post completion of treatment. Interval History Since the patient's last visit, she has been doing well and is without complaints. She does not have: Abdominal pain, abdominal distention, pelvic pain, bloating, constipation, nausea/vomiting, increased abdominal girth, early satiety, weight loss, weight gain, vaginal bleeding, vaginal discharge, changes with urination, changes with bowels, vaginal dryness. Does have SOB relatedto COPD, not worsening, on home 02. Not up-to-date on mammogram, will give order today. Past Medical History: Diagnosis Date Abnormal stress test Allergic rhinitis Arthritis Asthma Bronchitis Cancer (CMS/HCC) ([facility]) skin Cervical cancer (CMS/HCC) ([facility]) Chest pain COPD (chronic obstructive pulmonary disease) ([facility]) USE OXYGEN 3 L AT NIGHT DDD (degenerative disc disease), cervical Defect, retina, with detachment right DJD (degenerative joint disease), lumbar Emphysema lung ([facility]) Former smoker Hematuria SCHEDULED FOR THE PROCEDURE /SURGERY ON 02/11/2017 Hypokalemia Lung nodules Osteoporosis Palpitations Pneumonia Recurrent major depression ([facility]) Sciatica Thoracic compression fracture ([facility]) Vitamin D deficiency Past Surgical History: Procedure Laterality Date CYSTOSCOPY 01/12/2017 OFFICE PROCEDURE CYSTOSCOPY 02/11/2017 C&P bladder biopsy EYE SURGERY detached retina 1994 HYSTERECTOMY 11/06/2019 ABDOMINAL RADICAL HYSTERECTOMY WITH BSO AND PELVIC LYMPH; DR. ZIYAD MENENDEZ [facility] OTHER SURGICAL HISTORY Left 12/19/2019 Med Port POWER Regular Size TUBAL LIGATION 1992 @MEDCMED@ Allergies as of 10/20/2022 - Reviewed 10/20/2022 Allergen Reaction Noted Pollen extract Unknown 08/16/2017 REVIEW OF SYSTEMS: As per the HPI, otherwisenegative. Vitals: 10/20/22 1406 BP: (!) 143/83 Pulse: 96 Body mass index is 23.56 kg/m . Physical Exam Constitutional: Appearance: Normal appearance. Pulmonary: Effort: Pulmonary effort is normal. Abdominal: General: Abdomen is flat. Palpations: Abdomen is soft. Comments: Well-healed Pfannenstiel incision Genitourinary: General: Normal vulva. Comments: .Uterus, cervix, bilateral adnexa surgically absent. No lesions or nodularity of the vaginal cuff, posterior cul-de-sac or rectovaginal vault. Exam consistent with radiation changes. Musculoskeletal: General: Normal range of motion. Lymphadenopathy: Cervical: Right cervical: No superficial cervical adenopathy. Left cervical: No superficial cervical adenopathy. Upper Body: Right upper body: No supraclavicular adenopathy. Left upper body: No supraclavicular adenopathy. Skin: General: Skin is warm and dry. Neurological: General: No focal deficit present. Mental Status: She is alert and oriented to person, place, and time. ASSESSMENT/PLAN: No evidence of disease or malignancy seen on examination today. Yearly Pap Smears. Done today, will call with results and follow-up accordingly Follow up in [address] scan of chest to follow lung nodule. Mammogram ordered will call with results and follow-up accordingly. We discussed routine surveillance of disease per the NCCN guidelines with history and physical examination every 3-6 months for the first 2 years followed by every 6-12 months for years 3 through 5. We discussed the imaging will be obtained on an as-needed basis, based upon history and physical exam findings. The signs and symptoms of recurrence were reviewed and the patient will contact our office in the interim should any of these arise. The patient had an opportunity to ask questions, all of which were answered to the best of my ability. She is in agreement with the above noted plan. I spent a total time of 15 minutes reviewing previous notes, test results, obtaining history, communicating results to the patient as well as counseling the patient, documenting clinical information in the patient's electronic medical record and coordinating care for the patient. Disclaimer: This note was dictated by speech recognition. I apologize for minor errors in meat team member which may be present. documented in this [place]06-28-2023 History of Present illness Narrative* Melva Sandoval PA-C - 09/15/2022 2:46 PM EDT Gonzalo Deluca is a 66 year old female here today for routine follow up. COPD: Lungs feel junky. Increased sob since air quality became poor. +productive cough. Requesting prednisone and antibiotic. Has appt with staff genetic counselor in [place] in September. Declines antitrypsin blood draw. Using inhalers as prescribed. On O2 2.5 L Taking 200 mg seroquel at bedtime. Working well. Too hard to break in half to take 150 mg. Percocet 4 times daily, Willing to do cologuard. Mood stable with current medications. REVIEW OF SYSTEMS See HPI, otherwise unremarkable. PAST MEDICAL HISTORY Diagnosis Date COPD (chronic obstructive pulmonary disease) (HCC) DDD (degenerative disc disease), lumbar Encounter for chronic pain management Major depression, recurrent, chronic (HCC) Osteoporosis Pulmonary nodule, right 2015 PAST SURGICAL HISTORY Procedure Laterality Date CYSTOSCOPY 01/12/2017 CYSTOSCOPY 02/11/2017 EYE SURGERY HX Right 1994 detached retina TUBAL LIGATION HX 1992 FAMILY HISTORY Problem Relation Age of Onset Breast Cancer Mother other (lung cancer) Father Breast Cancer Sister 62 No Known Problems Brother Social History Tobacco Use Smoking status: Former Packs/day: 1.50 Years: 69.00 Pack years: 103.50 Types: Cigarettes Start date: 1971 Quit date: 2017 Years since quittin.4 Smokeless tobacco: Never Tobacco comments: vaping intermittently Vaping Use Vaping Use: Never used Substance Use Topics Alcohol use: No Drug use: No PHYSICAL EXAMINATION: Vitals: BP 133/78 Pulse 101 Temp 36.3 C (97.3 F) Ht 165.1 cm (5' 5") Wt 61.1 kg (134 lb 11.2 oz) SpO2 95% BMI 22.42 kg/m General Appearance: chronically ill appearing, alert, in no acute distress, well-hydrated, well nourished.. Lungs: distant breath sounds b/l, some expiratory wheezing. Heart: RRR without murmur, gallop, or rubs. No ectopy. Psych: pleasant, appropriate affect. ASSESSMENT: DIAGNOSIS: (J43.1) Panlobular emphysema (HCC) (primary encounter diagnosis) (J44.0, J20.9) COPD (chronic obstructive pulmonary disease) with acute bronchitis (HCC) (E78.2) Hyperlipidemia, mixed (Z51.81) Medication monitoring encounter (Z12.11) Screening for colon cancer (Z79.899) Medication management (M54.50, G89.29) Chronic midline low back pain without sciatica (M51.36) DDD (degenerative disc disease), lumbar (F33.9) Major depression, recurrent, chronic (HCC) PLAN: ASSESSMENT/PLAN: 1. Panlobular emphysema (HCC) - ICD9: 492.8, ICD10: J43.1 (primary diagnosis) Prednisone taper. - DOXYCYCLINE HYCLATE 100 MG CAPSULE - PARKING FOR HANDICAPPED 2. COPD (chronic obstructive pulmonary disease) with acute bronchitis (HCC) - ICD9: 491.22, ICD10: J44.0, J20.9 - PARKING FOR HANDICAPPED 3. Hyperlipidemia, mixed - ICD9: 272.2, ICD10: E78.2 - Control undetermined, due for labs - Continue current medications - Counseled on healthy diet and regular exercise 4. Medication monitoring encounter - ICD9: V58.83, ICD10: Z51.81 - CBC + DIFF - COMP METABOLIC PANEL 5. Screening for colon cancer - ICD9: V76.51, ICD10: Z12.11 - COLOGUARD 6. Medication management - ICD9: V58.69, ICD10: Z79.899 7. Chronic midline low back pain without sciatica - ICD9: 724.2, 338.29, ICD10: M54.50, G89.29 Stable, continue current meds 8. DDD (degenerative disc disease), lumbar - ICD9: 722.52, ICD10: M51.36 stable 9. Major depression, recurrent, chronic (HCC) - ICD9: 296.30, ICD10: F33.9 Stable, continue current meds Follow up 3 months or sooner prn. Pt in agreement with the plan and verbalized understanding. Melva Sandoval PA-C * Rayo Roman Ma - 09/15/2022 2:40 PM EDT ALPHA-1 ANTITRYPSIN DEFICIENCY SCREENING Never done MAMMOGRAM Never done COLORECTAL CANCER SCREENING Never done PNEUMOCOCCAL: 66+(2 - PCV) due on 03/11/2018 BONE DENSITY Never done documented in this encounterVan [facility]05-12-2023 Miscellaneous Notes* Telephone Encounter - Silvia Trejo Ma - 07/30/2022 11:26 AM EDT Pharmacy verified in [facility] Patient has been identified by name and date of : Yes Patient aware RX will be sent to pharmacy. No need to notify patient. Pharmacy phones for refill(s): Requested Prescriptions Pending Prescriptions Disp Refills buPROPion XL (WELLBUTRIN XL) 150 mg 24 hr tablet [Pharmacy Med Name: BUPROPION HCL XL 150 MG TABLET] 90 tablet 3 Sig: TAKE 1 TABLET BY MOUTH EVERY DAY Date of last office visit : 08/06/2021 Date of next office visit : 09/03/2022 Last 2 Encounter Wt Readings: Date: Wt: 08/06/2021 58.8 kg (129 lb 9.6 oz) 02/02/2021 59.8 kg (131 lb 12.8 oz) Please advise. Silvia Trejo Ma documented in this encounterVan [facility]05-09-2023 Miscellaneous Notes* Telephone Encounter - Whit Shay LPN - 07/27/2022 3:24 PM EDT Last appointment: 06/03/22 Next appointment: 09/03/22 Pharmacy verified in [facility]. Refill(s) requested: Requested Prescriptions Pending Prescriptions Disp Refills cyclobenzaprine (FLEXERIL) 5 mg tablet 30 tablet 2 Sig: Take 1 tablet by mouth twice daily as needed. oxyCODONE-acetaminophen (PERCOCET) 5-325 mg tablet 134 tablet 0 Sig: Take 1 tablet by mouth every 4 hours as needed for pain for up to 30 days. Order(s) pended. Please advise. Whit Shay LPN, CMA documented in this encounterVan [facility]ert [facility]04-14-2023 Miscellaneous Notes* Telephone Encounter - Melva Sandoval PA-C - 07/02/2022 3:24 PM EDT Noted. Melva Sandoval PA-C * Telephone Encounter - Imelda Jay - 07/02/2022 3:11 PM EDT Laurie CHRISTY from [facility] is calling Herminia Case MD today to inform provider as an Patient Update (Cancelled her home OT visit today due to illness )please be advised. Patient was not feeling well. [phone]. Patient has been identified by name and birthdate. Duration of symptoms: N/A Person calling: Laurie OT Call patient at: n/a [phone] (home) [phone] (cell) Was an appointment scheduled: No Closing statement: Results or non-symptom based questions: Thank you for calling [facility], your call will be returned within the next business day. Imelda Hull Pss documented in this encounterVan Wert [facility]04-13-2023 Miscellaneous Notes* Telephone Encounter - Whit Shay LPN - 07/01/2022 3:25 PM EDT Request completed and faxed. * Telephone Encounter - Herminia Case MD - 07/01/2022 3:00 PM EDT Done. * Telephone Encounter - Whit Shay LPN - 07/01/2022 10:35 AM EDT Type of letter/form/fax request - Home Health Care Orders Form received from [facility] on 06/30/22 floor and placed on MD desk () for completion. Completed form needs to be faxed to [phone]. Route to [place] when form completed for processing documented in this encounterVan Wert [facility]04-12-2023 Miscellaneous Notes* Telephone Encounter - Ruddy Moreno RN - 06/30/2022 7:20 PM EDT Laurie from [facility] informed. Advised to call back with any further concerns or questions. * Telephone Encounter - Melva Sandoval PA-C - 06/30/2022 7:13 PM EDT I am not aware of any concerning interactions. Melva Sandoval PA-C * Telephone Encounter - Ruddy Moreno RN - 06/30/2022 7:07 PM EDT CHRISTY Sullivan [facility]. Their computer program alerted her to "possible interaction" and they have to call and notify provider with all alerts. There are no concerns or symptoms to report. * Telephone Encounter - Melva Sandoval PA-C - 06/30/2022 7:02 PM EDT I am not aware of any interaction between the two. Can they clarify? Thanks Melva Sandoval PA-C * Telephone Encounter - Kita [facility] - 06/30/2022 3:10 PM EDT Gonzalo Deluca, has Laurie /CHRISTY with [facility] is calling Herminia Case MD today to advise ofa possible medication interaction, the albuterol sulfate with the cyclobenzaprine. This is noted they are advised to call provider with this information Laurie [phone] (verified) Patient has been identified by name and birthdate. Duration of symptoms: N/A Person calling: CHRISTY Sullivan with [facility] Call patient at: at home [phone] (home) [phone] (cell) Was an appointment scheduled: No Closing statement: Results or non-symptom based questions: Thank you for calling [facility], your call will be returned within the next business day. K[facility] documented in this encounterVan Wert County Hospital04-04-2023 Miscellaneous Notes* Telephone Encounter - Rocio Westfall MA - 06/22/2022 3:57 PM EDT Spoke to the patient and she stated she will go to Express care. Patient declined OV at this time and would rather be seen at the walk in. Rocio Westfall MA * Addendum Note - Melva Sandoval PA-C - 06/22/2022 3:45 PM EDTAddended by: MELVA SANDOVAL on: 06/22/2022 03:45 PM Modules accepted: Orders * Addendum Note - Melva Sandoval PA-C - 06/22/2022 3:45 PM EDTAddended by: MELVA SANDOVAL on: 06/22/2022 03:45 PM Modules accepted: Orders * Telephone Encounter - Melva Sandoval PA-C - 06/22/2022 3:43 PM EDT Recommend OV or express care. Please fax machine order. Thanks Melva Sandoval PA-C * Telephone Encounter - Whit Carey RN - 06/22/2022 2:46 PM EDT Voicemail received June 22, 2022 1338 Hi there, my name is Rina, I am an occupational therapist with [facility]. I am callingabout patient Gonzalo Deluca, date 57. I am calling for several reasons. First of all to notify the doctor of an elevated heart rate. Which was 105 today. Patient is having some shortness of breath today and coughing. Says she has a sinus infection she thinks, with a lot of facial pressure and yellow drainage. Her BP was 132/78, just FYI. And also to ask about a nebulizer. She had one in the past and it is broken. She isnt sure if she should get a new one. Her oxygen level was 92% on 2.5L. she had already done all her emergency inhalers. Also needed to report that hse had a fall, on the , which was last . In the bathroom, she said her feet slipped out from underneath her, said she landed on her butt. She has seen Dr. Gresham since then and no concerns for elbow and shoulder which had been broken. I think that is it. If you have any questions for me I can be reached at [phone]. Thank you" Spoke with patient Complaints of sinus pain and pressure with nasal congestion Yellow nasal discharge Productive cough, yellow green phlegm Onset 06/20/22 Reports nebulizer broke a few years ago and asking for replacement order to be sent to [facility] Will need aerosol prescription also Patient is also requesting steroid to help with respiratory symptoms. States this happens every year around this time and steroids help. Patient is agreeable to OV or express care if needed Routing to provider for review Reason for Disposition [1] Sinus congestion as part of a cold AND [2] present < 10 days Answer Assessment - Initial Assessment Questions 1. LOCATION: Under and above eyes bilaterally 2. ONSET: Tuesday06/20/22 3. SEVERITY: 5/10 4. RECURRENT SYMPTOM: Occurs when weather changes 5. NASAL CONGESTION: yes, is able to breath through nose 6. NASAL DISCHARGE yellow discharge 7. FEVER: 99.0 yesterday evening 8. OTHER SYMPTOMS: short of breath with activity 9. : NA Protocols used: Sinus Pain or [id number] documented in this encounterVan Wert [facility] Hospital04-04-2023 Miscellaneous Notes* Telephone Encounter - Bernadette Rubin MA - 06/22/2022 3:55 PM EDT Last appointment: 06/03/22 Next appointment: 09/03/22 Pharmacy verified in [facility]. Refill(s) requested: Requested Prescriptions Pending Prescriptions Disp Refills albuterol (PROVENTIL) 2.5 mg /3 mL (0.083 %) nebulizer solution [Pharmacy Med Name: ALBUTEROL SUL 2.5 MG/3 ML SOLN] 90 mL 1 Sig: INHALE 3 ML VIA NEBULIZER EVERY 4 HOURS NEEDED FOR WHEEZE OR FOR SHORTNESS OF BREATH Order(s) pended. Please advise. Bernadette Rubin MA, [facility] documented in this encounterVan Wert County Hospital04-04-2023 Miscellaneous Notes* Telephone Encounter - Whit Shay LPN - 06/22/2022 1:16 PM EDT Request completed and faxed. * Telephone Encounter - Herminia Case MD - 06/22/2022 12:59 PM EDT Done. * Telephone Encounter - Whit Shay LPN - 06/22/2022 11:38 AM EDT Type of letter/form/fax request - Home Health Care Orders Form received from [facility] on 06/21/22 floor and placed on desk () for completion. Completed form needs to be faxed to [phone]. Route to NE when form completed for processing documented in this encounterVan Wert [facility]03-27-2023 Miscellaneous Notes* Telephone Encounter - Whit Shay LPN - 06/14/2022 12:32 PM EDT Request completed and faxed. * Telephone Encounter - Herminia Case MD - 06/14/2022 12:18 PM EDT Done. * Telephone Encounter - Whit Shay LPN - 06/14/2022 10:48 AM EDT Type of letter/form/fax request - Home Health Care Orders Form received from [facility] on 06/13/22 floor and placed on MD desk () for completion. Completed form needs to be faxed to [phone]. Route to NE when form completed for processing documented in this encounterVan Wert [facility]03-16-2023 History of Present illness Narrative* Herminia Case MD - 06/03/2022 3:34 PM EDT VIRTUAL VISIT PROGRESS NOTE This is a virtual visit using LookTracker video visit. It required patient-provider interaction for themedical decision making as documented below. Gonzalo Deluca is a 66 year old female seen for follow up. Admitted 05/21-05/24 at [facility] none Fell on 05/21 Missed a step while walking in her house at night Sustained right humeral and radial head fractures Admitted, seen by ortho No surgery, wearing a sling - seeing dr. Gresham on 06/18 Has home OT and PT Xray 05/21/22 1. Acute, transverse fracture through the right proximal surgical humeral neck. There is mild avulsion fracture of the right greater tuberosity. Diffuse osteopenia. Remote multiple mid thoracic compression fracture deformities, unchanged. Copd - breathing ok, on oxygen 2.5 L continuous Chronic back pain, compression fractures Flexeril 5 mg BID, percocet 5 mg/325 QID, had 10 mg #15 for breakthrough, filled on 05/24. Has been taking 1.5 tabs of 5 mg since leaving the hospital. Mood is more depressed since the fall but feels she will be ok. HISTORY REVIEWED (electronic chart updated): PAST MEDICAL HISTORY Diagnosis Date COPD (chronic obstructive pulmonary disease) (HCC) DDD (degenerative disc disease), lumbar Encounter for chronic pain management Major depression, recurrent, chronic (HCC) Osteoporosis Pulmonary nodule, right 2015 PAST SURGICAL HISTORY Procedure Laterality Date CYSTOSCOPY 01/12/2017 CYSTOSCOPY 02/11/2017 EYE SURGERY HX Right 1994 detached retina TUBAL LIGATION HX 1992 FAMILY HISTORY Problem Relation Age of Onset Breast Cancer Mother other (lung cancer) Father Breast Cancer Sister 62 No Known Problems Brother Social History Tobacco Use Smoking status: Former Packs/day: 1.50 Years: 69.00 Pack years: 103.50 Types: Cigarettes Start date: 1971 Quit date: 2017 Years since quittin.2 Smokeless tobacco: Never Tobacco comments: vaping intermittently Vaping Use Vaping Use: Never used Substance Use Topics Alcohol use: No Drug use: No Current Outpatient Medications Medication Sig alendronate (FOSAMAX) 70 mg tablet TAKE 1 TABLET BY MOUTH ONE TIME A WEEK. atorvastatin (LIPITOR) 40 mg tablet TAKE 1 TABLET BY MOUTH EVERY DAY AT NIGHT fluticasone (FLONASE) 50 mcg/actuation nasal spray Use 2 Sprays in each nostril once daily. buPROPion XL (WELLBUTRIN XL) 150 mg 24 hr tablet Take 1 tablet by mouth once daily. oxyCODONE-acetaminophen (PERCOCET) 5-325 mg tablet Take 1 tablet by mouth every 4 hours as needed for pain for up to 30 days. cyclobenzaprine (FLEXERIL) 5 mg tablet Take 1 tablet by mouth twice daily as needed. sertraline (ZOLOFT) 100 mg tablet Take 2 tablets by mouth once daily. QUEtiapine (SEROQUEL) 100 mg tablet Take 1.5 tablets by mouth at bedtime as needed. fluticasone-vilanterol (BREO ELLIPTA) 200-25 mcg/dose inhaler Inhale 1 Inhalation as instructed once daily. tiotropium bromide (SPIRIVA RESPIMAT) 2.5 mcg/actuation inhaler Inhale 2 Puffs as instructed once daily. Inhale two puffs once daily. albuterol HFA (PROVENTIL HFA, VENTOLIN HFA) 90 mcg/actuation inhaler Inhale 2 Puffs as instructed every 4 hours as needed for wheezing/shortness of breath. No current facility-administered medications for this visit. ALLERGIES Allergen Reactions Seasonal Allergies Intolerance REVIEW OF SYSTEMS: GENERAL: feeling well without fatigue, no recent change in weight RESPIRATORY: no cough, no wheezing or shortness of breath CARDIOVASCULAR: no chest pain, no palpitations PHYSICAL EXAMINATION: VIDEO EXAM: (if completed, performed via video enabled technology) GENERAL: alert and appropriate, in no distress, well-hydrated, well nourished, and happy, smiling, interactive SKIN: no rash noted RESPIRATORY: breathing non-labored ASSESSMENT: (S42.294D) Other closed nondisplaced fracture of proximal end of right humerus with routine healing, subsequent encounter (primary encounter diagnosis) (J43.1) Panlobular emphysema (HCC) (J96.11) Chronic respiratory failure with hypoxia (HCC) (J44.0, J20.9) COPD (chronic obstructive pulmonary disease) with acute bronchitis (HCC) (F33.9) Major depression, recurrent, chronic (HCC) (S22.000A) Compression fracture of body of thoracic vertebra (HCC) PLAN: Diagnoses and all orders for this visit: Other closed nondisplaced fracture of proximal end of right humerus with routine healing, subsequent encounter - oxyCODONE-acetaminophen (PERCOCET) 5-325 mg tablet; Take 1 tablet by mouth every 4 hours as needed for pain for up to 30 days. - increase to 5 times a day for 2 weeks to help with breakthrough nighttime pain, back to #120 nextmonth Panlobular emphysema (HCC) Continue oxygen, current inhalers Chronic respiratory failure with hypoxia (HCC) COPD (chronic obstructive pulmonary disease) with acute bronchitis (HCC) Major depression, recurrent, chronic (HCC) Compression fracture of body of thoracic vertebra (HCC) - oxyCODONE-acetaminophen (PERCOCET) 5-325 mg tablet; Take 1 tablet by mouth every 4 hours as needed for pain for up to 30 days. - cyclobenzaprine (FLEXERIL) 5 mg tablet; Take 1 tablet by mouth twice daily as needed. Other orders - ADVANCE CARE PLAN DISCUSSION There are no Patient Instructions on file for this visit. Herminia Case MD documented [facility] Miscellaneous Notes* Telephone Encounter - Whit Shay LPN - 06/01/2022 10:42 AM EDT Request completed and faxed. * Telephone Encounter - Herminia Case MD - 06/01/2022 9:53 AM EDT Done. * Telephone Encounter - Whit Shay LPN - 06/01/2022 9:28 AM EDT Type of letter/form/fax request - Home Health Care Orders Form received from [facility] on 05/28/22 floor and placed on MD desk () for completion. Completed form needs to be faxed to [phone]. Route to NE when form completed for processing documented in this encounterVan [facility]03-13-[facility]23 Miscellaneous Notes* Telephone Encounter - Herminia Case MD - 05/31/2022 8:22 PM EDT Noted. * Telephone Encounter - Jessica Whitley Pss - 05/31/2022 4:09 PM EDT Rina is an occupational therapist for [facility] and is calling to let Dr. Case know that the patient cancelled her occupational therapy visit last and has put the therapist off until Tuesday (although she has not set up a time yet). Patient's occupational therapy is delayed. Rina [phone] documented in this encounterVan [facility]03-06-2023 Note* Care Coordination - Janet Jean RN - 05/24/2022 11:11 AM EST Pt remains on 1E, plan for discharge today. Spoke with pt at bedside, she states she wants to discharge home with daughter. THANIA notified, pt confirms she has transportation home and they will bring her 02 to pick her up. Wears 2L NC. Plan for pt to discharge home with HHC. TCC to assist and followas needed. [phone]* Care Coordination - Janet Jean RN - 05/24/2022 11:11 AM EST Pt remains on 1E, plan for discharge today. Spoke with pt at bedside, she states she wants to discharge home with daughter. THANIA notified, pt confirms she has transportation home and they will bring her 02 to pick her up. Wears 2L NC. Plan for pt to discharge home with HHC. TCC to assist and followas needed. [facility] [id number] Miscellaneous Notes* Care Coordination - Janet Jean RN - 05/24/2022 11:11 AM EST Pt remains on 1E, plan for discharge today. Spoke with pt at bedside, she states she wants to discharge home with daughter. THANIA notified, pt confirms she has transportation home and they will bring her 02 to pick her up. Wears 2L NC. Plan for pt to discharge home with HHC. TCC to assist and followas needed. * Care Plan - Jennifer Hartley RN - 05/23/2022 9:00 PM EST Problem: Musculoskeletal - Adult Goal: Return mobility to safest level of function Outcome: Progressing Goal: Maintain proper alignment of affected body part Outcome: Progressing Goal: Return ADL status to a safe level of function Outcome: Progressing Problem: Pain Goal: My pain/discomfort is manageable Outcome: Progressing Problem: Safety Goal: Patient will be injury free during hospitalization Outcome: Progressing Goal: I will remain free of falls Outcome: Progressing * Care Plan - Nicole Swift RN - 05/23/2022 6:02 PM EST Problem: Musculoskeletal - Adult Goal: Return mobility to safest level of function 05/23/2022 1802 by Nicole Swift RN Outcome: Progressing 05/23/2022 180 by Nicole Swift RN Outcome: Progressing Goal: Maintain proper alignment of affected body part 05/23/2022 1802 by Nicole Swift RN Outcome: Progressing 05/23/2022 1802 by Nicole Swift RN Outcome: Progressing Goal: Return ADL status to a safe level of function 05/23/2022 1802 by Nicole Swift RN Outcome: Progressing 05/23/2022 1802 by Nicole Swift RN Outcome: Progressing Problem: Pain Goal: My pain/discomfort is manageable 05/23/2022 1802 by Nicole Swift RN Outcome: Progressing 05/23/2022 1802 by Nicole Swift RN Outcome: Progressing Problem: Safety Goal: Patient will be injury free during hospitalization 05/23/2022 1802 by Nicole Swift RN Outcome: Progressing 05/23/2022 1802 by Nicole Swift RN Outcome: Progressing Goal: I will remain free of falls 05/23/2022 1802 by Nicole Swift RN Outcome: Progressing 05/23/2022 1802 by Nicole Swift RN Outcome: Progressing * Care Coordination - Unknown Case Management - 05/23/2022 2:13 PM EST Patient Choice Patient Name: GONZALO DELUCA Date of : 1955 All Providers Sent Referral Name: [facility] Phone: [phone] Address: [address] [place] [id number] * Home Care - Mahsa Castro RN - 05/23/2022 2:03 PM EST Start PACC Note Home Health Referral Educated patient on Home Care and services available. Patient offered choice of available HHC and agreeable to PT/OT services with [facility]. Care Types: None Isolation Precautions: No active isolations Social Determinates of Health: Tobacco Use: Medium Risk Smoking Tobacco Use: Former Smokeless Tobacco Use: Never Passive Exposure: Not on file Social History Substance and Sexual Activity Alcohol Use Not Currently Comment: Approx once a year Social History Substance and Sexual Activity Drug Use No Does the patient have any financial resource strain? No Does the patient have any food insecurities? No Does the patient have any housing instabilities? No If any of the above is noted as yes - consider a DIRECTOR OF ROOMS evaluation once the patient returns home. START PATIENT REGISTRATION INFORMATION Order Information Order Signing Physician: Teresa Cedillo MD Service Ordered RN ?: No Service Ordered PT ?: Yes Service Ordered OT ?: Yes Service Ordered ST ?: No Service Ordered DIRECTOR OF ROOMS?:No Service Ordered COMMUNITY SERVICES COORDINATOR?: No Following Physician: HERMINIA CASE MD Following Physician Overseeing Physician: HERMINIA CASE MD (Required for Residents only) Agreeable to Follow? Office closed Date/Time of Call 05/23/22 2:04 PM Care Coordination SOC Call from [facility] Required?: No Same Day SOC?: No Primary Care Physician: HERMINIA CASE MD Primary Care Physician Primary Care Physician Address: [address] [place] [id number] Visit Instructions: N/A Service Discharge Location Type: Home with Home Health Care Service Facility Name: N/A Service Floor Facility: N/A Service Room No: N/A Demographics Patient Last Name: Yosi Patient First Name: Gonzalo Language/Communication Barrier: n/a Service Address: [facility] Ramesh Bañuelos Service City: [facility] ST: [place] Service ZIP: [address] Service (home) Other phone numbers: Telephone Information: Emergency Contact: Extended Emergency Contact Information Primary Emergency Contact: Karishma Deluca Relation: Child Secondary Emergency Contact: Jace Deluca Relation: Child Admission Information Admit Date: 05/21/2022 Patient status at discharge: Observation Caregiver Information Caregiver First Name: Karishma Caregiver Last Name: Yosi Caregiver Relationship to Patient dtr Caregiver Caregiver Notes: N/A Brain [employer] List No END PATIENT REGISTRATION INFORMATION Pt Home Health goal rehab at home Admitting Diagnosis Facial laceration, initial encounter [S01.81XA] Fall, initial encounter [W19.XXXA] Closed fracture of neck of right humerus, initial encounter [S42.211A] Humeral head fracture, right, closed, initial encounter [S42.291A] COVID Status 1. Do you have any upper respiratory symptoms (cough, SOB, Fever)? No 2. Have you been exposed to anyone with COVID-19 Virus? No Answer only if pending or positive for COVID-19? 1. Agreeable to wear PPE at each visit? N/a 2. Is the hospital supplying them with PPE upon Discharge? N/a Start PACC Summary General Report/ Additional Comments S/P fall Proximal humeral/radial fx, right side Discharge Date: 05/23/22 Referral Source-PACC: (Hospital/Unit): [facility] / B1-147/B1-147 B End PACC Note * Care Coordination - Phillip Gurrola RN - 05/22/2022 4:48 PM EST Care Managment Initial Assessment Date: 05/22/2022 Patient Name: Gonzalo Deluca : 1955 Patient Information Source of Information: Patient Name/Contact Information: KARISHMA DELUCA [phone] DAUGHTER Cognition/Language: WFL - Within Functional Limits Permission given to speak with patient financial sales representative/caregiver as indicated: Yes Confirmation of Payer with patient/family: Yes Payer Name: [facility] DUAL COMPLETE : No Confirmation of Primary Care Physician: Confirmed PCP Name: DR. CASE Seen in last 2 years?: Yes Primary Caregiver: Self If assistance needed, confirmed caregiver ready, willing and able to care for patient at discharge: Confirmed with: Living Arrangements Current Residence: House Number of Floors 2 Number of Entry Steps: 1 Bed/Bath Levels: Both first floor Facility: Facility Name: [facility] Plan to Return: Yes Lives with: Support Systems: Children (DAUGHTER AND DAUGHTER'S BOYFRIEND AND 6 YEAR OLD GRANDDAUGHTER) Activities of Daily Living Ambulation: Independent Bathing/Dressing: Independent Elimination/Continence/Toileting: Independent Feeding: Independent Who Assists with Activities of Daily Living: NA Instrumental Activities of Daily Living Prescription Coverage: Yes Pharmacy Used: [facility] [place] Medication Management: Prescription pick-up Who assists with medication securing and setup?: DAUGHTER PICKS UP OR HAS MEDS DELIVERED Transportation/Shopping: Assistance Provider Transportation/Shopping Assistance Provider Name: DAUGHTER Transportation Mode: Car Needs Assistance with Transportation at Discharge: No (DAUGHTER) Meal Preparation: Independent Laundry/Cleaning: Independent Finances/Bill Paying: Independent Communication: Independent Types of Care Services/Equipment Utilized Care Services: Dialysis Type: NA Durable Medical Equipment: Oxygen (Continuous or prn) Oxygen Flow Rate: 2.5 LITERS CONT DME Provider: [facility] Patient's Goal/Discharge Plan Patient expects to be discharged to: HOME WITH [facility] Discharge Planning Actions: Continue to follow Patient's Choice Rights and [employer] and Collaborative Relationships Disclosed as Indicated for Post-Acute Care: NA Interdisciplinary Team Engagement: Home Health Care, PT/OT Social Work Referral for: Additional Information: Admitted from home following a fall. Sustained right shoulder and elbow fracture. Admitted to [facility] ortho consulted, has sling in place to right arm. Pt/ot and pain control. Discharge preparation checklist reviewed with patient. Has prescription coverage and able to afford medications. Reviewed therapy evals and recommendations of snf with patient and she is electing to discharge to home with [facility] services. business liaison officer updated via [facility]. Patient states lives at home with her daughter, prem's boyfriend, and her 6 year granddaughter. States her daughter plans on taking FMLA and staying with her while she recovers. Patient does wear oxygen at 2.5 liters at home cont. Denies anticipating any additional needs upon discharge. Discharge plan home with [facility] when medically stable. Anticipate probable discharge in the am.. Phillip Gurrola RN * Care Plan - Nicole Swift RN - 05/22/2022 3:59 PM EST Problem: Musculoskeletal - Adult Goal: Return mobility to safest level of function 05/22/2022 1559 by Nicole Swift RN Outcome: Progressing 05/22/2022 1558 by Nciole Swift RN Outcome: Progressing Goal: Maintain proper alignment of affected body part 05/22/2022 1559 by Nicoel Swift RN Outcome: Progressing 05/22/2022 1558 by Nicole Swift RN Outcome: Progressing Goal: Return ADL status to a safe level of function 05/22/2022 1559 by Nicole Swift RN Outcome: Progressing 05/22/2022 1558 by Nicole Swift RN Outcome: Progressing Problem: Pain Goal: My pain/discomfort is manageable 05/22/2022 1559 by Nicole Swift RN Outcome: Progressing 05/22/2022 1558 by Nicole Swift RN Outcome: Progressing Problem: Safety Goal: Patient will be injury free during hospitalization 05/22/2022 1559 by Nicole Swift RN Outcome: Progressing 05/22/2022 1558 by Nicole Swift RN Outcome: Progressing Goal: I will remain free of falls 05/22/2022 1559 by Nicole Swift RN Outcome: Progressing 05/22/2022 1558 by Nicole wSift RN Outcome: Progressing * Care Plan - Jennifer Hartley RN - 05/21/2022 10:34 PM EST Problem: Musculoskeletal - Adult Goal: Return mobility to safest level of function Outcome: Progressing Goal: Maintain proper alignment of affected body part Outcome: Progressing Goal: Return ADL status to a safe level of function Outcome: Progressing Problem: Pain Goal: My pain/discomfort is manageable Outcome: Progressing Problem: Safety Goal: Patient will be injury free during hospitalization Outcome: Progressing Goal: I will remain free of falls Outcome: Progressing documented in this [place]03-06-2023 Hospital course Narrative* Teresa Cedillo MD - 05/24/2022 10:00 AM EST Images from the original note were not included. Discharge Summary Gonzalo Deluca : 1955 ADMIT DATE: 05/21/2022 DISCHARGE DATE: 05/24/2022 PRIMARY CARE PHYSICIAN: HERMINIA CASE MD VISIT STATUS: inpatient CODE STATUS: Full Code DISCHARGE DIAGNOSES: S/P fall Proximal humeral/radial fx, right side COPD Chronic respiratory failure Anemia Hyperlipidemia depression HOSPITAL COURSE: 66 year old presented s/p fall. She was found to have right humeral and radial head fractures. She was admitted and seen by Orthopedic Surgery who recommended non operative management with sling and NWB RUE. She was seen by PT/OT. Recommendation was made for SNF but patient declined and wished [facility]. She was discharged home. SIGNIFICANT DIAGNOSTIC STUDIES: CT head, CT c spine, CXR, pelvic xray, R shoulder xray, R elbow xray CONSULTANTS: Orthopedic Surgery RECOMMENDED NEXT STEPS: Continue sling and NWB RUE. Outpatient PT/OT. Follow up with PCP and Orthopedcs as outpatient. Physical Exam: General appearance: alert, cooperative and no distress Mental Status: oriented to person, place and time and normal affect Lungs: few coarse breath sounds bilaterally, normal effort Heart: regular rate and rhythm, no murmur Abdomen: soft, nontender, nondistended, bowel sounds present, no masses Extremities: no edema, redness, tenderness in the calves Skin: no gross lesions, rashes DISCHARGE MEDICATIONS: Medication List START taking these medications acetaminophen 325 MG tablet Commonly known as: Tylenol Take 2 tablets (650 mg) by mouth every 6 hours as needed for mild pain (1-3) or fever (For temp greater than 100.4 F (38 C)) for up to 10 days. oxyCODONE-acetaminophen 10-325 MG tablet Commonly known as: Percocet Take 1 tablet by mouth every 6 hours as needed for moderate pain (4-6) or severe pain (7-10) for upto 5 days. CONTINUE taking these medications albuterol 108 (90 Base) MCG/ACT inhaler alendronate 70 MG tablet Commonly known as: Fosamax aspirin 81 MG EC tablet atorvastatin 40 MG tablet Commonly known as: Lipitor Breo Ellipta 200-25 MCG/ACT aerosol powder Generic drug: Fluticasone Furoate-Vilanterol buPROPion XL 150 MG 24 hr tablet Commonly known as: Wellbutrin XL calcium carbonate-cholecalciferol 250-3.125 MG-MCG tablet Commonly known as: Oyster Shell clonazePAM 0.5 MG tablet Commonly known as: KlonoPIN diphenhydrAMINE 25 MG tablet Commonly known as: Sominex fluticasone 50 MCG/ACT nasal spray Commonly known as: Flonase gabapentin 600 MG tablet Commonly known as: Neurontin magnesium oxide 400 mg tablet Commonly known as: Mag-Ox montelukast 10 MG tablet Commonly known as: Singulair potassium chloride CR 20 MEQ ER tablet Commonly known as: Klor-Con M20 sertraline 100 MG tablet Commonly known as: Zoloft Spiriva Respimat 2.5 MCG/ACT inhaler Generic drug: tiotropium Zinc 50 MG capsule Where to Get Your Medications You can get these medications from any pharmacy Bring a paper prescription for each of these medications oxyCODONE-acetaminophen 10-325 MG tablet Information about where to get these medications is not yet available Ask your nurse or doctor about these medications acetaminophen 325 MG tablet DIET: Adult diet Regular ACTIVITY: up with assist COMPLEXITY OF FOLLOW UP: [] Moderate Complexity: follow up within 7-14 calendar days ([id number]) [] Severe Complexity: follow up within 7 calendar days ([id number]) FOLLOW UP TESTING, PENDING RESULTS OR REFERRALS AT TRANSITIONAL CARE VISIT: [] Yes [] No PENDING STUDIES: No DISPOSITION: Home FACILITY/HOME CARE AGENCY NAME: Follow up with Betsey Gresham MD [address] [place] [address] Schedule an appointment as soon as possible for a visit in 3 week(s) Herminia Case MD [address] [place] [place] [address] Schedule an appointment as soon as possible for a visit in 1 week(s) INSTRUCTIONS TO MA/SW: Please call patient on day after discharge (must document patient contacted within 2 business days of discharge). FOLLOW UP QUESTIONS FOR MA/SW: 1. Did you get medications filled and taking them as instructed from discharge? 2. Are you following your discharge instructions from your hospital stay? 3. Please confirm patient is scheduled for a follow up appointment within the above time frame. DISCHARGE TIME: > 30 minutes SIGNED: TERESA CEDILLO MD 05/24/2022, 10:00 AM documented in this [place]03-06-2023 History of Present illness Narrative* Martita Ervin, RESISTANCE BRAZER - 05/24/2022 8:39 AM EST Physical Therapy Facility/Department: [facility] Physical Therapy Daily Treatment Note NAME: Gonzalo Deluca : 1955 Date of Service: 05/24/2022 Discharge Recommendations: Facility based therapy PT Equipment Recommendations Equipment Needed: No Assessment Assessment: Pt progressing towards acute care goals. Pt is SUP for bed mobility, SBA for transfers and light min A x 1 for ambulation due to pain and increased fatigue with distance. Pt SpO2 fluctuated between 88-92% on 3L. Pt would benefit from continued therapy at a facility but if she chooses togo home would require 24/7 asisst which she said that she has. Requires PT Follow-Up: Yes Patient Diagnosis(es): The primary encounter diagnosis was Fall, initial encounter. Diagnoses of Facial laceration, initial encounter, Closed fracture of neck of right humerus, initial encounter, andHumeral head fracture, right, closed, initial encounter were also pertinent to this visit. has a past medical history of Abnormal stress test, Allergic rhinitis, Arthritis, Asthma, Bronchitis, Cancer (CMS/HCC) (HCC), Cervical cancer (CMS/HCC) ([facility]), Chest pain, COPD (chronic obstructive pulmonary disease) ([facility]), DDD (degenerative disc disease), cervical, Defect, retina, with detachment, DJD (degenerative joint disease), lumbar, Emphysema lung ([facility]), Former smoker, Hematuria, Hypokalemia, Lung nodules, Osteoporosis, Palpitations, Pneumonia, Recurrent major depression ([facility]), Sciatica, Thoracic compression fracture ([facility]), and Vitamin D deficiency. She has no past medical history of Blood circulation, collateral, Chronic kidney disease, Clotting disorder (CMS/HCC) ([facility]), Disease of blood and blood forming organ, GERD (gastroesophageal reflux disease), Liver disease, Movement disorder, Other disorders of kidney and ureter in diseases classified elsewhere, Seizures (CMS/HCC) ([facility]), or Syncope and collapse. has a past surgical history that includes Tubal ligation; Cystoscopy (01/12/2017); Cystoscopy (02/11/2017); Eye surgery; Hysterectomy (11/06/2019); and Other surgical history (Left, 12/19/2019). Restrictions Restrictions/Precautions Restrictions/Precautions: Weight Bearing, General Precautions, Fall Risk Required Braces or Orthoses?: Yes Upper Extremity Weight Bearing Restrictions Right Upper Extremity Weight Bearing: Non Weight Bearing Required Braces or Orthoses Right Upper Extremity Brace/Splint: Sling Position Activity Restriction Other position/activity restrictions: s/p fall with R humeral surgical neck fx with new NWB status,sling, and no AROM at shoulder or elbow at this time. Subjective General Chart Reviewed: Yes Family / Caregiver Present: No General Comment Comments: Per RN okay to see. Subjective Subjective: Pt is agreeable to therapy. States she is having a lot of pain in L arm but didnt rate.RN gave pain meds a half hour ago when therapist first checked on patient. Pain Assessment Pain Assessment: (c/o of pain in R arm but didnt rate) Objective Bed mobility Supine to Sit: Supervision Sit to Supine: Supervision Scooting: Supervision Comment: Denied dizziness. HOB elevated but no use of bed rails. Pt able to maintain R UE NWB. Slowmovement and transitions. Limited by pain this session Transfers Sit to Stand: Stand by assistance (to no device) Stand to sit: Stand by assistance Comment: Denied dizziness. Pt able to demonstrate proper L UE placement when ascending and descending. Pt able to maintain R UE NWB throughout. Good eccentric control. Ambulation Ambulation: Yes Ambulation 1 Surface 1: Level tile Device 1: No device Other Apparatus 1: O2 (3L) Assistance 1: Minimum assistance Quality of Gait Comment 1: Demonstrates a slow, short reciprocal gait pattern, occasional staggers,standing rest breaks to catch her breath, slight furniture walking when faituged, unsteadiness but no LOB noted. Distance (ft) 1: [id number] Comments 1: O2 after 50ft x 1 was 88%-90%, patient slow to recover. Pt too fatigued to ambulate to steps to trail stairs. Extended time to complete. SpO2 WFL after ambulation and given time to recover. Plan # of visits: 2 visits Safety Safety Devices Safety Devices in Place: Yes Type of Devices: All fall risk precatuions in place, Call light within reach, Gait belt, Patient atrisk for falls, Left in bed, Nurse notified AM-PAC Score AM-PAC Inpatient Mobility Raw Score: 16 Mobility Inpatient [facility] G-Code Modifier: CK Goals Encounter Problems Encounter Problems (Active) Balance Patient will maintain dynamic standing balance for 5 minutes with SBA in order to demonstrate decreased risk of falling. (Progressing) Start: 05/21/22 Expected End: 05/28/22 Exercise Patient will complete lower extremity exercises for 1-2 sets / 5-10 reps in order to improve strength and activity tolerance for mobility. (Not Addressed) Start: 05/21/22 Expected End: 05/28/22 Mobility Patient will ambulate 100 feet with SBA and least restrictive device in order to improve safety andindependence with mobility. (Progressing) Start: 05/21/22 Expected End: 05/28/22 Patient will ascend and descend 12 stairs with least restrictive device and supervision in order tosafely negotiate home. (Not Addressed) Start: 05/21/22 Expected End: 05/28/22 Goal Note Declined due to pain and fatigue Transfers Patient will perform bed mobility with supervision in order to improve independence and prepare forout of bed mobility. (Completed) Start: 05/21/22 Expected End: 05/28/22 Met: 05/24/22 Patient will complete functional transfer with least restrictive device with supervision in order to prepare for ambulation. (Progressing) Start: 05/21/22 Expected End: 05/28/22 Encounter Problems (Resolved) Safety Patient will recall/demonstrate weight bearing and/or ROM restrictions with all functional mobilityin order to promote healing and safety with functional tasks. (Completed) Start: 05/21/22 Expected End: 05/28/22 Met: 05/23/22 Education Education Given To: Patient Education Provided: Goals, PT Role, Plan of Care, Discharge recommendations, Precautions, Transfer Training, Energy Conservation, General Safety, Gait Training, Functional Mobility Training, Weight-bearing Education, Injury Prevention Education Method: Demonstration, Verbal, Teach Back Barriers to Learning: None Education Outcome: Verbalized understanding, Continued education needed, Demonstrated understanding Therapy Time Individual Co-treatment Time In 0820 Time Out 0829 Minutes 9 Timed Code Treatment Minutes: 9 Minutes (1 gait) Martita Ervin PTA * Teresa Cedillo MD - 05/23/2022 2:10 PM EST Images from the original note were not included. Hospitalist Progress Note 05/23/[phone]: Please message me for patient care issues. [phone]: Please message [facility] Hospitalist for any issues. Subjective: Admit Date: 05/21/2022 PCP: HERMINIA CASE MD Room#: B1-147/B1-147 B Interval History: Remains on oxygen. Tolerating diet. Pain controlled. Denies chest pain, sob, abdominal pain, nausea, vomiting, diarrhea, constipation, fevers, or chills. She is weak. Still does notwant SNF/FBT but does not feel ready to go home today. D/w pt and RN separately. Adult diet Regular @[id number]@ 24HR INTAKE/OUTPUT: No intake or output data in the 24 hours ending 05/23/22 1410 Past Medical History: Past Medical History: Diagnosis Date Abnormal stress test Allergic rhinitis Arthritis Asthma Bronchitis Cancer (CMS/HCC) ([facility]) skin Cervical cancer (CMS/HCC) ([facility]) Chest pain COPD (chronic obstructive pulmonary disease) ([facility]) USE OXYGEN 3 L AT NIGHT DDD (degenerative disc disease), cervical Defect, retina, with detachment right DJD (degenerative joint disease), lumbar Emphysema lung (HCC) Former smoker Hematuria SCHEDULED FOR THE PROCEDURE /SURGERY ON 02/11/2017 Hypokalemia Lung nodules Osteoporosis Palpitations Pneumonia Recurrent major depression (HCC) Sciatica Thoracic compression fracture (HCC) Vitamin D deficiency LABS: CBC: Recent Labs 05/21/2252505/22/2245005/23/22 0058 WBC 12.1* 7.5 9.6 RBC 4.09 3.47* 3.27* HGB 12.5 10.8* 10.3* HCT 39.0 33.0* 31.1* MCV 95.4 95.1 95.1 RDW 14.0 14.0 13.9 PLT 339 238 248 BMP: Recent Labs 05/21/2252505/22/2245005/23/2257 NA 138 137 138 K 4.2 4.2 3.6 CL 103 105 109* CO2 35* 30 28 BUN 15 13 13 CREATININE 0.78 0.69 0.68 GLUCOSE 116* 86 104* CALCIUM 9.1 8.4 8.5 ANIONGAP 1* 2* 2* LIVER PROFILE:No results for input(s): AST, ALT, BILITOT, ALKPHOS, PROT in the last 72 hours. No lab exists for component: LABALBU PT/INR: No results for input(s): PROTIME, INR in the last 72 hours. CARDIAC ENZYMES: No results for input(s): TROPONINI in the last 72 hours. Procalcitonin: No results found for: PROCAL COVID-19 PCR: No results for input(s): COVID19 in the last 72 hours. Objective: Vitals: BP 107/79 (BP Location: Left arm, Patient Position: Lying) Pulse 91 Temp 37 C (98.6 F) (Temporal) Resp 16 Ht 5' 5" (1.651 m) Wt 146 lb 2.6 oz (66.3 kg) SpO2 95% BMI 24.32 kg/m Pulse Ox: SpO2 Av.2 % Min: 91 % Max: 95 % Physical Exam Constitutional: Appearance: Normal appearance. She is not toxic-appearing. HENT: Head: Normocephalic. Mouth/Throat: Mouth: Mucous membranes are moist. Cardiovascular: Rate and Rhythm: Normal rate and regular rhythm. Pulses: Normal pulses. Pulmonary: Effort: Pulmonary effort is normal. Breath sounds: No wheezing or rhonchi. Chest: Chest wall: No tenderness. Abdominal: General: Bowel sounds are normal. There is no distension. Palpations: Abdomen is soft. Tenderness: There is no abdominal tenderness. There is no rebound. Musculoskeletal: General: No swelling or deformity. Normal range of motion. Right lower leg: No edema. Left lower leg: No edema. Skin: General: Skin is warm and dry. Findings: No rash. Neurological: General: No focal deficit present. Mental Status: She is alert and oriented to person, place, and time. Medications: atorvastatin, 40 mg, Oral, Nightly buPROPion XL, 150 mg, Oral, Daily clonazePAM, 0.5 mg, Oral, Nightly fluticasone, 2 spray, Each Nostril, Daily gabapentin, 600 mg, Oral, Daily influenza, 0.5 mL, IntraMUSCular, Once ipratropium-albuterol, 3 mL, Nebulization, TID montelukast, 10 mg, Oral, Nightly sertraline, 200 mg, Oral, Daily sodium chloride 0.9%, 5-40 mL, IntraVENous, q12h Assessment S/P fall Proximal humeral/radial fx, right side COPD Anemia Hyperlipidemia depression Medical Decision Making Continue pain control, continue immobilizer, continue to increase activity, continue oxygen, continue IS, continue inhalers, Orthopedics following, PT/OT, follow up labs, continue current meds, discharge planning-orders complete but patient not comfortable leaving today, see orders. -am labs, replace lytes prn -increase activity -DVT prophylaxis: [x] Lovenox [] Heparin [] SCDs [x] Encourage ambulation [] Already on Anticoagulation Anticipated Discharge - Date - 05/23 - Location - Home with home care (patient declines FBT) - Pending the following - she is medically stable for discharge but patient currently does not feelcomfortable going home today Total time spent (which include face to face and non face to face encounters) : 42 minutes Toxic drug monitoring/narrow therapeutic index drug monitoring : # Drug name : # Route administered : # Method of monitoring : Extended Emergency Contact Information Primary Emergency Contact: Karishma Deluca Relation: Child Secondary Emergency Contact: Jace Deluca Relation: Child TERESA CEDILLO MD Division of Hospitalist Medicine [facility] [employer] PAGER: Epic chat * Andres Ventura MD - 05/23/2022 12:25 PM EST H: Patient sleeping soundly. I did not wake her. Chart reviewed. Recent Labs 05/23/22 0058 HGB 10.3* WBC 9.6 VS: Blood pressure 107/79, pulse 91, temperature 37 C (98.6 F), temperature source Temporal, resp. rate 16, height 1.651 m (5' 5"), weight 66.3 kg (146 lb 2.6 oz), SpO2 95 %. PE: Afeb VSS. Labs OK. Shoulder immobilizer intact. IMP: Right proximal humerus fx. Probable right radial head fx. PLAN: Therapy recommends FBT, but patient has 24 hour care and wants to go home. Plan for discharge soon. Continue shoulder immobilizer and NWB right UE. Follow up with Dr. Gresham in 2-3 weeks as outpatient. * Griselda Mcfarlane PTA - 05/23/2022 8:34 AM EST Physical Therapy Facility/Department: [facility] E Physical Therapy Daily Treatment Note NAME: Gonzalo Deluca : 1955 Date of Service: 05/23/2022 Discharge Recommendations: Facility based therapy PT Equipment Recommendations Equipment Needed: No Assessment Assessment: Pt continues to demonstrate ability to perform bed mobility, transfers and gait with SBA/MIN A for safety due to small episodes of decreased balance requiring assist for safety. Pt also demonstrates decreased O2 sats with activity requiring pacing to decrease fall risks. Pt would benefit from continued therapy at a facility but if chooses to go home would need 24 hour assist and further home therapy . Activity Tolerance Comment: Limited by fatigue/SOB Requires PT Follow-Up: Yes Patient Diagnosis(es): The primary encounter diagnosis was Fall, initial encounter. Diagnoses of Facial laceration, initial encounter and Closed fracture of neck of right humerus, initial encounter were also pertinent to this visit. has a past medical history of Abnormal stress test, Allergic rhinitis, Arthritis, Asthma, Bronchitis, Cancer (CMS/HCC) ([facility]), Cervical cancer (CMS/HCC) ([facility]), Chest pain, COPD (chronic obstructive pulmonary disease) ([facility]), DDD (degenerative disc disease), cervical, Defect, retina, with detachment, DJD (degenerative joint disease), lumbar, Emphysema lung ([facility]), Former smoker, Hematuria, Hypokalemia, Lung nodules, Osteoporosis, Palpitations, Pneumonia, Recurrent major depression ([facility]), Sciatica, Thoracic compression fracture ([facility]), and Vitamin D deficiency. She has no past medical history of Blood circulation, collateral, Chronic kidney disease, Clotting disorder (CMS/HCC) ([facility]), Disease of blood and blood forming organ, GERD (gastroesophageal reflux disease), Liver disease, Movement disorder, Other disorders of kidney and ureter in diseases classified elsewhere, Seizures ([facility]) ([facility]), or Syncope and collapse. has a past surgical history that includes Tubal ligation; Cystoscopy (01/12/2017); Cystoscopy (02/11/2017); Eye surgery; Hysterectomy (11/06/2019); and Other surgical history (Left, 12/19/2019). Restrictions Restrictions/Precautions Restrictions/Precautions: Weight Bearing, General Precautions, Fall Risk Required Braces or Orthoses?: Yes Upper Extremity Weight Bearing Restrictions Right Upper Extremity Weight Bearing: Non Weight Bearing Required Braces or Orthoses Right Upper Extremity Brace/Splint: Sling Position Activity Restriction Other position/activity restrictions: s/p fall with R humeral surgical neck fx with new NWB status,sling, and no AROM at shoulder or elbow at this time. Subjective General Chart Reviewed: Yes Family / Caregiver Present: No Subjective Subjective: Pt reports feeling better now that pain meds have "kicked in". Pt reports plan to go home vs facility. Pain Assessment Pain Score: 7 Pain Type: Acute pain Pain Location: Shoulder, Arm Pain Orientation: Right Objective Bed mobility Supine to Sit: Stand by assistance Sit to Supine: Stand by assistance Comment: pt performs with SBA with HOB elevated and maintaining of NWB R UE within sling. Slow movement with no c/o dizziness Transfers Sit to Stand: Stand by assistance Stand to sit: Stand by assistance Comment: of 1 for safety with pt maintaining NWB R UE in sling with slight unsteadiness but self recovers. Cues to stand prior to attempts to mobilize to ensure safety. Good eccentric control Ambulation 1 Surface 1: Level tile Device 1: No device Other Apparatus 1: O2 (in tow by therapist) Assistance 1: Standby assistance, Minimum assistance Quality of Gait Comment 1: of 1 for safety with slow, short reciprical pattern with occassional staggers but no blatant balance loss. Pt bumped R UE x 1 on door frame due to decreased awareness of space. (fall risk) Distance (ft) 1: 160' x 1, 15' x 1 Comments 1: O2 sat was 93% prior to mobility post gait and stairs, decreased to 82% with return to 96% within 1 minute of rest Stairs Rails 1: Left Assistance 1: Minimum assistance Number of Steps 1: 4 steps Comment 1: Pt reports only having to do 2 steps to enter home and be on level whe will be on at home (not 12 steps) Pt performed a reciprical pattern when ascending but sidestepped to descend with a step to pattern. Light assist to ensure safety and manage O2 line Exercises Straight Leg Raise: 1 set / 10 reps in supine B LE individually Quad Sets: 1 set / 10 reps in supine B LE Gluteal Sets: 1 set / 10 reps in supine B LE Hip Abduction: 1 set / 10 reps in supine B LE individually Knee Short Arc Quad: 1 set / 10 reps in supine B LE individually Comments: Pt performed exercises to improve strength and stamina for mobility. Rest breaks taken due to fatigue and respiratory status Plan # of visits: 3 visits Current Treatment Recommendations: (Cont ther ex and functional training) Safety Safety Devices Type of Devices: All fall risk precatuions in place, Call light within reach, Gait belt, Patient atrisk for falls, Left in bed, Nurse notified AM-PAC Score AM-PAC Inpatient Mobility Raw Score: 16 Mobility Inpatient [facility] G-Code Modifier: CK Goals Encounter Problems Encounter Problems (Active) Balance Patient will maintain dynamic standing balance for 5 minutes with SBA in order to demonstrate decreased risk of falling. (Progressing) Start: 05/21/22 Expected End: 05/28/22 Exercise Patient will complete lower extremity exercises for 1-2 sets / 5-10 reps in order to improve strength and activity tolerance for mobility. (Progressing) Start: 05/21/22 Expected End: 05/28/22 Mobility Patient will ambulate 100 feet with SBA and least restrictive device in order to improve safety andindependence with mobility. (Progressing) Start: 05/21/22 Expected End: 05/28/22 Patient will ascend and descend 12 stairs with least restrictive device and supervision in order tosafely negotiate home. (Progressing) Start: 05/21/22 Expected End: 05/28/22 Transfers Patient will perform bed mobility with supervision in order to improve independence and prepare forout of bed mobility. (Progressing) Start: 05/21/22 Expected End: 05/28/22 Patient will complete functional transfer with least restrictive device with supervision in order to prepare for ambulation. (Progressing) Start: 05/21/22 Expected End: 05/28/22 Encounter Problems (Resolved) Safety Patient will recall/demonstrate weight bearing and/or ROM restrictions with all functional mobilityin order to promote healing and safety with functional tasks. (Completed) Start: 05/21/22 Expected End: 05/28/22 Met: 05/23/22 Education Education Provided: Goals, PT Role, Plan of Care, Discharge recommendations, Precautions, Transfer Training, Energy Conservation, General Safety, Gait Training, Functional Mobility Training, Weight-bearing Education, Injury Prevention Education Method: Demonstration, Verbal, Teach Back Barriers to Learning: None Education Outcome: Verbalized understanding, Continued education needed, Demonstrated understanding Therapy Time Individual Co-treatment Time In 0750 Time Out 0818 Minutes 28 Timed Code Treatment Minutes: 23 Minutes (ther ex and gait) Griselda Mcfarlane PTA * Fely Walter - 05/23/2022 8:15 AM EST Nutrition rescreen completed. Patient assigned a level 1. * Griselda Mcfarlnae PTA - 05/22/2022 2:44 PM EST Physical Therapy Facility/Department: [facility] 1E Physical Therapy Daily Treatment Note NAME: Gonzalo Deluca : 1955 Date of Service: 05/22/2022 Discharge Recommendations: Facility based therapy PT Equipment Recommendations Equipment Needed: No Assessment Assessment: pt demonstrated small improvements in functional mobility with still requiring assist to safely complete transfers, bed mobility and gait. Pt fatigues easily and becomes SOB with activityrequiring frequent rest breaks. pt is not at a safe functional level and will continue to benefit from recommendation for further therapy to improve stamina, strength and functional independence withpain control Requires PT Follow-Up: Yes Patient Diagnosis(es): The primary encounter diagnosis was Fall, initial encounter. Diagnoses of Facial laceration, initial encounter and Closed fracture of neck of right humerus, initial encounter were also pertinent to this visit. has a past medical history of Abnormal stress test, Allergic rhinitis, Arthritis, Asthma, Bronchitis, Cancer (CMS/HCC) ([facility]), Cervical cancer (CMS/HCC) ([facility]), Chest pain, COPD (chronic obstructive pulmonary disease) ([facility]), DDD (degenerative disc disease), cervical, Defect, retina, with detachment, DJD (degenerative joint disease), lumbar, Emphysema lung ([facility]), Former smoker, Hematuria, Hypokalemia, Lung nodules, Osteoporosis, Palpitations, Pneumonia, Recurrent major depression ([facility]), Sciatica, Thoracic compression fracture ([facility]), and Vitamin D deficiency. She has no past medical history of Blood circulation, collateral, Chronic kidney disease, Clotting disorder (CMS/HCC) ([facility]), Disease of blood and blood forming organ, GERD (gastroesophageal reflux disease), Liver disease, Movement disorder, Other disorders of kidney and ureter in diseases classified elsewhere, Seizures (CMS/HCC) ([facility]), or Syncope and collapse. has a past surgical history that includes Tubal ligation; Cystoscopy (01/12/2017); Cystoscopy (02/11/2017); Eye surgery; Hysterectomy (11/06/2019); and Other surgical history (Left, 12/19/2019). Restrictions Restrictions/Precautions Restrictions/Precautions: Weight Bearing, General Precautions, Fall Risk Required Braces or Orthoses?: Yes Upper Extremity Weight Bearing Restrictions Right Upper Extremity Weight Bearing: Non Weight Bearing Required Braces or Orthoses Right Upper Extremity Brace/Splint: Sling Position Activity Restriction Other position/activity restrictions: s/p fall with R humeral surgical neck fx with new NWB status,sling, and no AROM at shoulder or elbow at this time. Subjective General Chart Reviewed: Yes Family / Caregiver Present: No Subjective Subjective: Pt pleasant and agreeable to therapy. Frustrated with her situation Pain Assessment Pain Score: 5 - Moderate pain (pre and post treatment) Pain Type: Acute pain Pain Location: Arm, Shoulder, Chest Pain Orientation: Right Objective Bed mobility Supine to Sit: Stand by assistance Sit to Supine: Stand by assistance Comment: of 1 for safety with HOB elevated and pt able to manuever LE's to EOB to sit self upright with supporting R UE in sling and with L UE. Pt returned to flat surface with SBA and time given with added support of LE to R with sling on. Pt positioned with pillows for comfort. Transfers Sit to Stand: Stand by assistance, Minimal Assistance Stand to sit: Stand by assistance, Minimal Assistance Comment: of 1 for safety with pt using L UE to elvate and reach back and light assist to steady pt. Ambulation 1 Surface 1: Level tile Device 1: No device Other Apparatus 1: O2 (3L) Assistance 1: Standby assistance, Minimum assistance Quality of Gait Comment 1: Pt walks with a slow step thru pattern with decreased stride length and at time varying base of support causing exagerated weight shifting/balance. Pt becomes SOB with activity Distance (ft) 1: 80' x 1 Comments 1: O2 sat 88% upon transitioning to sitting from supine with recovery to 93% prior to mobility. Dropped to 85% post gait requiring 1 minute to recover to 94%. Balance Comments: pt demonstrated ability to maintain stance with light MIN/SBA of 1 for support while donning pants with light assist provided to complete donning on R side of body. Exercises Hip Flexion: 1 set / 15 reps in sitting B LE alternating Hip Abduction: 1 set / 10 reps in sitting B LE isometrically Hip Adduction: 1 set / 10 reps in sitting B LE isometrically Knee Long Arc Quad: 1 set / 10 reps in sitting B LE alternating Ankle Pumps: 1 set / 15 reps in sitting B LE Comments: exercises performed to increase strength and stamina for mobility Rest breaks needed due to SOB Plan # of visits: 4 visits Current Treatment Recommendations: (Cont ther ex and functional training) Safety Safety Devices Type of Devices: All fall risk precatuions in place, Call light within reach, Gait belt, Patient atrisk for falls, Left in bed AM-PAC Score AM-PAC Inpatient Mobility Raw Score: 14 Mobility Inpatient [facility] G-Code Modifier: CL Goals Encounter Problems Encounter Problems (Active) Balance Patient will maintain dynamic standing balance for 5 minutes with SBA in order to demonstrate decreased risk of falling. (Progressing) Start: 05/21/22 Expected End: 05/28/22 Exercise Patient will complete lower extremity exercises for 1-2 sets / 5-10 reps in order to improve strength and activity tolerance for mobility. (Progressing) Start: 05/21/22 Expected End: 05/28/22 Mobility Patient will ambulate 100 feet with SBA and least restrictive device in order to improve safety andindependence with mobility. (Progressing) Start: 05/21/22 Expected End: 05/28/22 Patient will ascend and descend 12 stairs with least restrictive device and supervision in order tosafely negotiate home. (Not Addressed) Start: 05/21/22 Expected End: 05/28/22 Safety Patient will recall/demonstrate weight bearing and/or ROM restrictions with all functional mobilityin order to promote healing and safety with functional tasks. (Progressing) Start: 05/21/22 Expected End: 05/28/22 Transfers Patient will perform bed mobility with supervision in order to improve independence and prepare forout of bed mobility. (Progressing) Start: 05/21/22 Expected End: 05/28/22 Patient will complete functional transfer with least restrictive device with supervision in order to prepare for ambulation. (Progressing) Start: 05/21/22 Expected End: 05/28/22 Education Education Given To: Patient Education Provided: Goals, PT Role, Plan of Care, Discharge recommendations, Precautions, Transfer Training, Energy Conservation, General Safety, Equipment, Gait Training, Functional Mobility Training, Weight-bearing Education, Injury Prevention Education Method: Demonstration, Verbal Barriers to Learning: None Education Outcome: Verbalized understanding, Continued education needed, Demonstrated understanding Therapy Time Individual Co-treatment Time In 1400 Time Out 1430 Minutes 30 Timed Code Treatment Minutes: 23 Minutes (ther ex and gait) Griselda Mcfarlane PTA * Teresa Cedillo MD - 05/22/2022 11:56 AM EST Images from the original note were not included. Hospitalist Progress Note 05/22/2022 [phone]: Please message me for patient care issues. [phone]: Please message [facility] Hospitalist for any issues. Subjective: Admit Date: 05/21/2022 PCP: HERMINIA CASE MD Room#: B1-147/B1-147 B Interval History: Pain controlled. Tolerating diet. Weak. Denies chest pain, sob, abdominal pain, nausea, vomiting, diarrhea, constipation, fevers, or chills. D/w pt Adult diet Regular @[id number]@ 24HR INTAKE/OUTPUT: No intake or output data in the 24 hours ending 05/22/22 1156 Past Medical History: Past Medical History: Diagnosis Date Abnormal stress test Allergic rhinitis Arthritis Asthma Bronchitis Cancer (CMS/HCC) (HCC) skin Cervical cancer (CMS/HCC) (HCC) Chest pain COPD (chronic obstructive pulmonary disease) (HCC) USE OXYGEN 3 L AT NIGHT DDD (degenerative disc disease), cervical Defect, retina, with detachment right DJD (degenerative joint disease), lumbar Emphysema lung (HCC) Former smoker Hematuria SCHEDULED FOR THE PROCEDURE /SURGERY ON 02/11/2017 Hypokalemia Lung nodules Osteoporosis Palpitations Pneumonia Recurrent major depression (HCC) Sciatica Thoracic compression fracture (HCC) Vitamin D deficiency LABS: CBC: Recent Labs 05/21/22 0526 05/22/22 0451 WBC 12.1* 7.5 RBC 4.09 3.47* HGB 12.5 10.8* HCT 39.0 33.0* MCV 95.4 95.1 RDW 14.0 14.0 PLT 339 238 BMP: Recent Labs 05/21/22 0526 05/22/22 0451 NA 138 137 K 4.2 4.2 CL 103 105 CO2 35* 30 BUN 15 13 CREATININE 0.78 0.69 GLUCOSE 116* 86 CALCIUM 9.1 8.4 ANIONGAP 1* 2* LIVER PROFILE:No results for input(s): AST, ALT, BILITOT, ALKPHOS, PROT in the last 72 hours. No lab exists for component: LABALBU PT/INR: No results for input(s): PROTIME, INR in the last 72 hours. CARDIAC ENZYMES: No results for input(s): TROPONINI in the last 72 hours. Procalcitonin: No results found for: PROCAL COVID-19 PCR: No results for input(s): COVID19 in the last 72 hours. Objective: Vitals: BP 102/67 (BP Location: Left arm, Patient Position: Lying) Pulse 92 Temp 36.9 C (98.4 F) (Temporal) Resp 16 Ht 5' 5" (1.651 m) Wt 146 lb 2.6 oz (66.3 kg) SpO2 93% BMI 24.32 kg/m Pulse Ox: SpO2 Av % Min: 93 % Max: 95 % Physical Exam Constitutional: Appearance: Normal appearance. HENT: Head: Normocephalic. Cardiovascular: Rate and Rhythm: Normal rate and regular rhythm. Pulses: Normal pulses. Pulmonary: Effort: Pulmonary effort is normal. No respiratory distress. Breath sounds: No wheezing or rhonchi. Abdominal: General: Bowel sounds are normal. There is no distension. Palpations: Abdomen is soft. Tenderness: There is no abdominal tenderness. Musculoskeletal: General: No swelling or deformity. Right lower leg: No edema. Left lower leg: No edema. Skin: General: Skin is warm and dry. Neurological: General: No focal deficit present. Mental Status: She is alert. Medications: sodium chloride, 100 mL/hr, Last Rate: 100 mL/hr (05/21/22 0530) atorvastatin, 40 mg, Oral, Nightly buPROPion XL, 150 mg, Oral, Daily clonazePAM, 0.5 mg, Oral, Nightly fluticasone, 2 spray, Each Nostril, Daily gabapentin, 600 mg, Oral, Daily influenza, 0.5 mL, IntraMUSCular, Once ipratropium-albuterol, 3 mL, Nebulization, TID montelukast, 10 mg, Oral, Nightly sertraline, 200 mg, Oral, Daily sodium chloride 0.9%, 5-40 mL, IntraVENous, q12h Assessment S/P fall Proximal humeral/radial fx, right side COPD Anemia Hyperlipidemia depression Medical Decision Making Continue pain control, continue immobilizer, increase activity, IS, inhalers, wean oxygen, immobilizer in place, Orthopedics following, PT/OT, follow up labs, continue current meds, discharge planning, see orders. -am labs, replace lytes prn -increase activity -DVT prophylaxis: [] Lovenox [] Heparin [] SCDs [x] Encourage ambulation [] Already on Anticoagulation Anticipated Discharge - Date - 05/24 - Location - Skilled Facility - Pending the following - once authorization obtained Total time spent (which include face to face and non face to face encounters) : 40 minutes Toxic drug monitoring/narrow therapeutic index drug monitoring : # Drug name : # Route administered : # Method of monitoring : Extended Emergency Contact Information Primary Emergency Contact: Karishma Deluca Relation: Child Secondary Emergency Contact: Jace Deluca Relation: Child TERESA CEDILLO MD [facility] [employer] [facility] [employer] P[employer]: Epic chat * Andres Ventura MD - 05/22/2022 10:42 AM EST H: Patient resting comfortably. No issues over night. Recent Labs 05/22/22 0451 HGB 10.8* WBC 7.5 VS: Blood pressure 102/67, pulse 92, temperature 36.9 C (98.4 F), temperature source Temporal, resp. rate 16, height 1.651 m (5' 5"), weight 66.3 kg (146 lb 2.6 oz), SpO2 93 %. PE: Afeb VSS. Shoulder immobilizer intact right UE. NVI distally. IMP: 3-part fx right proximal humerus. Probable right radial head fx. PLAN: Shoulder immobilizer. NWB right UE. Therapy recommends FBT. Discharge planning. * Greer Isaura, PT - 05/21/2022 3:31 PM EST Physical Therapy Facility/Department: [facility] ED Physical Therapy Initial Evaluation NAME: Gonzalo Deluca : 1955 Date of Service: 05/21/2022 Discharge Recommendations: Facility based therapy, Continue to assess pending progress PT Equipment Recommendations Equipment Needed: No Assessment Assessment: Pt admitted 05/21 with fall. Pt found to have R proximal humeral fracture and occult right radial head fracture. Pt nonsurgical at this time and NWB on RUE. Pt presents with the below deficits limiting her functional independence. On evaluation patient requires Jeff for bed mobility, CGA for transfers and Min-CGA for ambulation with FWW. Pt demos decreased tolerance due to RUE pain. Pt should benefit from skilled PT to increase functional independence and safety. Rec FBT pending progress. Performance Deficits/Impairments: Decreased functional mobility , Decreased ROM, Decreased strength, Decreased safe awareness, Decreased endurance, Decreased balance, Increased pain, Decreased posture, Decreased ADL status Decision Making: Medium Complexity History: Pt admitted 05/21 with fall. Pt found to have R proximal humeral fracture and occult right radial head fracture. Pt nonsurgical at this time and NWB on RUE.. PMH listed below. Exam: AM-PAC Clinical Presentation: Pt has PMH as indicated below that contributes to her clinical presentation. Barriers to Learning: none Requires PT Follow-Up: Yes Barriers to Learning: none Activity Tolerance Activity Tolerance: Patient limited by fatigue, Patient limited by pain, Patient limited by endurance Patient Diagnosis(es): The primary encounter diagnosis was Fall, initial encounter. Diagnoses of Facial laceration, initial encounter and Closed fracture of neck of right humerus, initial encounter were also pertinent to this visit. has a past medical history of Abnormal stress test, Allergic rhinitis, Arthritis, Asthma, Bronchitis, Cancer (CMS/HCC) ([facility]), Cervical cancer (CMS/HCC) ([facility]), Chest pain, COPD (chronic obstructive pulmonary disease) ([facility]), DDD (degenerative disc disease), cervical, Defect, retina, with detachment, DJD (degenerative joint disease), lumbar, Emphysema lung ([facility]), Former smoker, Hematuria, Hypokalemia, Lung nodules, Osteoporosis, Palpitations, Pneumonia, Recurrent major depression ([facility]), Sciatica, Thoracic compression fracture ([facility]), and Vitamin D deficiency. She has no past medical history of Blood circulation, collateral, Chronic kidney disease, Clotting disorder (CMS/HCC) ([facility]), Disease of blood and blood forming organ, GERD (gastroesophageal reflux disease), Liver disease, Movement disorder, Other disorders of kidney and ureter in diseases classified elsewhere, Seizures (CMS/HCC) ([facility]), or Syncope and collapse. has a past surgical history that includes Tubal ligation; Cystoscopy (01/12/2017); Cystoscopy (02/11/2017); Eye surgery; Hysterectomy (11/06/2019); and Other surgical history (Left, 12/19/2019). Restrictions Restrictions/Precautions Restrictions/Precautions: Weight Bearing, General Precautions, Fall Risk Required Braces or Orthoses?: Yes Upper Extremity Weight Bearing Restrictions Right Upper Extremity Weight Bearing: Non Weight Bearing Required Braces or Orthoses Right Upper Extremity Brace/Splint: Sling Position Activity Restriction Other position/activity restrictions: s/p fall with R humeral surgical neck fx with new NWB status,sling, and no AROM at shoulder or elbow at this time. Vision/Hearing Vision: Impaired Vision Exceptions: (wears glasses, however the glasses are damaged at this time) Hearing: Functional/adequate for paticipation in therapy Cognition/Orientation Overall Cognitive Status: WFL Overall Orientation Status: Within Functional Limits Subjective General Chart Reviewed: Yes Patient Assessed for Rehabilitation Services: Yes Family / Caregiver Present: No Follows Commands: Within Functional Limits General Comment Comments: Per RN patient okay for therapy Subjective Subjective: Pt lying in bed and agreeable to therapy Pain Assessment Pain Assessment: 0-10 (pain in R shoulder and elbow, did not rate) Social/Functional History Social/Functional History Lives With: Daughter, Other (comment) (daughter's BF, granddaughter) Type of Home: House Home Layout: Two level, Bed/Bath upstairs, 1/2 bath on main level Home Access: Stairs to enter with rails Entrance Stairs - Number of Steps: 3 Bathroom Shower/Tub: Walk-in shower Bathroom Toilet: Standard ADL Assistance: Independent Homemaking Assistance: Independent Homemaking Responsibilities: Yes Ambulation Assistance: Independent (no device) Transfer Assistance: Independent Active Linotyper: No Additional Comments: daughter works Objective Observation/Palpation Posture: Good Observation: PIV , 3L O2 n.c. intact and in place, ED tele Gross Assessment Gross Assessment: Yes AROM: Generally decreased, functional PROM: Generally decreased, functional Strength: Generally decreased, functional Coordination: Generally decreased, functional Tone: Normal Sensation: Intact Gross Assessment: Yes AROM: Generally decreased, functional PROM: Generally decreased, functional Strength: Generally decreased, functional Coordination: Generally decreased, functional Tone: Normal Sensation: Intact Bed mobility Supine to Sit: Contact guard assistance Sit to Supine: Minimal assistance Scooting: Contact guard assistance Comment: HOB elevated and additional time to complete. Exited bed on L side to protect RUE. Pt requires Jeff for LEs to return to supine. Pt denies dizziness in sitting. Increased RUE pain during transfer. Cues to maintain NWB. Transfers Sit to Stand: Contact guard assistance Stand to sit: Contact guard assistance Comment: from EOB to no device with CGA for safety. Pt denies dizziness in standing. General unsteadiness noted. Ambulation Ambulation: Yes Ambulation 1 Surface 1: Level tile Device 1: No device Assistance 1: Contact guard, Minimum assistance Quality of Gait 1: reciprocal stepping, equal step length, instability throughout all phases, slow lauren Distance (ft) 1: ~15'x2 Comments 1: Pt requires CGA with Jeff at times due to unsteadiness. Pt with impulsive behavior and demos decreased safety awareness. Increased fall risk. Balance Posture: Fair Sitting - Static: Good Sitting - Dynamic: Good, - Standing - Static: Fair Standing - Dynamic: Fair, - Plan # of visits: 5 visits Current Treatment Recommendations: Strengthening, ROM, Balance Training, Functional Mobility Training, Transfer Training, Gait Training, Stair training, Endurance Training, Pain Management, Home Exercise Program, Safety Education & Training, Patient/Caregiver Education & Training, EquipmentEvaluation, Education, & procurement, Positioning Plan Comment: all goals and/or treatment were established in collaboration with patient Safety Safety Devices Safety Devices in Place: Yes Type of Devices: All fall risk precatuions in place, Call light within reach, Gait belt, Patient atrisk for falls, Left in bed AM-PAC Score AM-PAC Inpatient Mobility Raw Score: 12 Mobility Inpatient [facility] G-Code Modifier: CL Goals Encounter Problems Encounter Problems (Active) Balance Patient will maintain dynamic standing balance for 5 minutes with SBA in order to demonstrate decreased risk of falling. Start: 05/21/22 Expected End: 05/28/22 Exercise Patient will complete lower extremity exercises for 1-2 sets / 5-10 reps in order to improve strength and activity tolerance for mobility. Start: 05/21/22 Expected End: 05/28/22 Mobility Patient will ambulate 100 feet with SBA and least restrictive device in order to improve safety andindependence with mobility. Start: 05/21/22 Expected End: 05/28/22 Patient will ascend and descend 12 stairs with least restrictive device and supervision in order tosafely negotiate home. Start: 05/21/22 Expected End: 05/28/22 Safety Patient will recall/demonstrate weight bearing and/or ROM restrictions with all functional mobilityin order to promote healing and safety with functional tasks. Start: 05/21/22 Expected End: 05/28/22 Transfers Patient will perform bed mobility with supervision in order to improve independence and prepare forout of bed mobility. Start: 05/21/22 Expected End: 05/28/22 Patient will complete functional transfer with least restrictive device with supervision in order to prepare for ambulation. Start: 05/21/22 Expected End: 05/28/22 Education Education Given To: Patient Education Provided: Goals, PT Role, Plan of Care, Discharge recommendations, Precautions, Transfer Training, Energy Conservation, General Safety, Equipment, Gait Training, Functional Mobility Training, Weight-bearing Education, Injury Prevention Education Method: Demonstration, Verbal Barriers to Learning: None Education Outcome: Verbalized understanding, Continued education needed Therapy Time Individual Co-treatment Time In 1403 Time Out 1431 Minutes 28 Timed Code Treatment Minutes: 8 Minutes (1 TA) Marian Mendosa PT Addendum: Evaluation performed by therapist listed above. Greer Delarosa PT adding co-sign for observation. * Kendra Dougherty OT - 05/21/2022 3:27 PM EST Occupational Therapy Facility/Department: [facility] ED Occupational Therapy Initial Evaluation NAME: Gonzalo Deluca : 1955 Date of Service: 05/21/2022 Discharge Recommendations: Facility based therapy, Continue to assess pending progress OT Equipment Recommendations Equipment Needed: No (TBD at next level of care) Having reviewed the treatment plan and goals for this patient, I certify that the plan of care below is medically necessary and appropriate. Assessment Performance deficits / Impairments: Decreased functional mobility , Decreased ADL status, Decreasedendurance, Decreased ROM, Decreased balance, Decreased high-level IADLs Assessment: Pt in 05/21 with recent fall and new R humerus surgical neck fx. Pt is now NWB RUE with no AROM of shoulder or elbow. She was previously IND for ADLs, IADLs, and functional transfers / mobility. she is currently MOD A - CGA for ADLs, functional trnasfers / mobility without a device. Pt requires increased cueing for safety and stability thorughout session. good ability to maintain NWB status thorughout session, however pt with increased pain and fatigue throughout session. She would benefit from skilled OT services to address the above performance deficits. Recommend planned D/C for FBT pending. Prognosis: Good Decision Making: Medium Complexity History: Pt in 05/21 with recent fall and new R humerus surgical neck fx. Pt is now NWB RUE with no AROM of shoulder or elbow. Exam: AM-PAC Assistance / Modification: MIN - CGA REQUIRES OT FOLLOW-UP: Yes Activity Tolerance Activity Tolerance: Patient limited by fatigue Patient Diagnosis(es): The primary encounter diagnosis was Fall, initial encounter. Diagnoses of Facial laceration, initial encounter and Closed fracture of neck of right humerus, initial encounter were also pertinent to this visit. has a past medical history of Abnormal stress test, Allergic rhinitis, Arthritis, Asthma, Bronchitis, Cancer (CMS/HCC) ([facility]), Cervical cancer (CMS/HCC) ([facility]), Chest pain, COPD (chronic obstructive pulmonary disease) ([facility]), DDD (degenerative disc disease), cervical, Defect, retina, with detachment, DJD (degenerative joint disease), lumbar, Emphysema lung ([facility]), Former smoker, Hematuria, Hypokalemia, Lung nodules, Osteoporosis, Palpitations, Pneumonia, Recurrent major depression ([facility]), Sciatica, Thoracic compression fracture ([facility]), and Vitamin D deficiency. She has no past medical history of Blood circulation, collateral, Chronic kidney disease, Clotting disorder (CMS/HCC) ([facility]), Disease of blood and blood forming organ, GERD (gastroesophageal reflux disease), Liver disease, Movement disorder, Other disorders of kidney and ureter in diseases classified elsewhere, Seizures (CMS/HCC) ([facility]), or Syncope and collapse. has a past surgical history that includes Tubal ligation; Cystoscopy (01/12/2017); Cystoscopy (02/11/2017); Eye surgery; Hysterectomy (11/06/2019); and Other surgical history (Left, 12/19/2019). Restrictions Restrictions/Precautions Restrictions/Precautions: Weight Bearing, General Precautions, Fall Risk Required Braces or Orthoses?: Yes Upper Extremity Weight Bearing Restrictions Right Upper Extremity Weight Bearing: Non Weight Bearing Required Braces or Orthoses Right Upper Extremity Brace/Splint: Sling Position Activity Restriction Other position/activity restrictions: s/p fall with R humeral surgical neck fx with new NWB status,sling, and no AROM at shoulder or elbow at this time. Vision/Hearing Vision: Impaired Vision Exceptions: (wears glasses, however the glasses are damaged at this time) Hearing: Functional/adequate for paticipation in therapy Cognition/Orientation Overall Cognitive Status: WFL Overall Orientation Status: Within Functional Limits Subjective General Chart Reviewed: Yes Patient Assessed for Rehabilitation Services: Yes Family / Caregiver Present: No Subjective Subjective: pleasant and cooperative General Comments Comments: Ok to see per RN Pain Assessment Pain Assessment: 0-10 Pain Score: (R shoulder, did not formally rate) Social/Functional History Social/Functional History Lives With: Daughter, Other (comment) (daughter's BF, granddaughter) Type of Home: House Home Layout: Two level, Bed/Bath upstairs, 1/2 bath on main level Home Access: Stairs to enter with rails Entrance Stairs - Number of Steps: 3 Bathroom Shower/Tub: Walk-in shower Bathroom Toilet: Standard ADL Assistance: Independent Homemaking Assistance: Independent Homemaking Responsibilities: Yes Ambulation Assistance: Independent (no device) Transfer Assistance: Independent Active Linotyper: No Additional Comments: daughter works Objective Gross Assessment: Yes AROM: Grossly decreased, non-functional (RUE No AROM at shoulder or elbow, LUE appears WFL) Strength: Grossly decreased, non-functional (RUE NWB, LUE appears > +3/5 grossly observed) Observation/Palpation Posture: Good Observation: PIV , O2 n.c. intact and in place, ED tele Balance Sitting Balance: Modified independent (sitting EOB) Standing Balance: Contact guard assistance Standing Balance Time: ~ 2 minutes Activity: pericare, standing EOB Comment: increased fatigue noted at this time with SpO2 mild desat to 88% following short functional activity on 3L O2 n.c. Increased instability at this time. Functional Mobility Functional - Mobility Device: Rolling Walker Activity: Other (short mobility in room) Assist Level: Contact guard assistance Functional Mobility Comments: Pt with mild instability at this time during OOB activity. Pt with increased haste to complete functional mobility with mild difficulty with obstacle management. She fatigues quickly and demos mild use of environmental supports at this time. Toilet Transfers Toilet - Technique: Ambulating Equipment Used: Standard bedside commode Toilet Transfer: Contact guard assistance Toilet Transfers Comments: Increased impulsivity with incresad cueing required for pt to fully reach BSC prior to initiating sit. Extended time required to complete all functional tasks. ADL Feeding: Setup Grooming: Stand by assistance UE Bathing: Moderate assistance LE Bathing: Minimal assistance UE Dressing: Moderate assistance LE Dressing: Minimal assistance Toileting: Contact guard assistance Additional Comments: Pt requires increased time this date for all functional tasks 2/2 pain at thistime. She demos mild instability with OOB activity 2/2 pt haste to complete activities. She was able to doff austin socks with figure 4 tech and donned her LLE sock. Assist to don RLe sock required. Shecompleted BSC level toileting with CGA overall with no assist for pericare or clothing management. Cueing to slow down d/t pt impulsivity at this time. Bed mobility Supine to Sit: Contact guard assistance Sit to Supine: Minimal assistance Scooting: Contact guard assistance Comment: HOB elevated, additional time required to complete. Pt able to protect RUE throughout and avoid WB through arm. Pt denies dizziness at this time. Increased pain reported with completion. Incresaed c/o diziness throughout. Able to maintain NWB status. Transfers Sit to stand: Contact guard assistance Stand to sit: Contact guard assistance Transfer Comments: from EOB to no device and from chair to no device. No c/o dizziness, mild fatigue noted and increased pain. SpO2 mild desat to 88% with activity, recovers with seated rest. No trueLOB noted at this time with good use of LUE for push up from / reach back for seated surfaces. Plan Times per Week: 7 visits Current Treatment Recommendations: Balance Training, Functional Mobility Training, Endurance Training, Pain Management, Safety Education & Training, Patient/Caregiver Education & Training, Equipment Evaluation, Education, & procurement, Self-Care / ADL Plan Comment: POC and goals established in collaboration with pt. Safety Safety Devices in place: Yes Type of devices: All fall risk precautions in place, Call light within reach, Gait belt, Patient atrisk for falls, Left in bed, Nurse notified Restraints Initially in place: No AM-PAC Score AM-PAC Inpatient Daily Activity Raw Score: 17 ADL Inpatient CMS G-Code Modifier: CK Goals Encounter Problems Encounter Problems (Active) Dressing Upper Extremities Patient will complete upper body dressing MOD I Start: 05/21/22 Expected End: 05/31/22 Dressings Lower Extremities Patient will dress lower body MOD I Start: 05/21/22 Expected End: 05/31/22 Mobility Patient will demonstrate functional mobility with MOD I and FWW Start: 05/21/22 Expected End: 05/31/22 Safety Patient will recall/demonstrate weight bearing and/or ROM restrictions with all functional mobilityin order to promote healing and safety with functional tasks. Start: 05/21/22 Expected End: 05/31/22 Toileting Patient will complete toileting tasks at standard toilet with modified independence. Start: 05/21/22 Expected End: 05/31/22 Transfers Patient will complete functional transfer with least restrictive device with modified independence in order to prepare for ambulation. Start: 05/21/22 Expected End: 05/31/22 Education Education Given To: Patient Education Provided: OT Role, Plan of Care, Precautions, ADL Adaptive Strategies, Transfer Training,Equipment Education Method: Demonstration, Verbal Barriers to Learning: None Education Outcome: Verbalized understanding, Demonstrated understanding Therapy Time Individual Co-treatment Time In 1403 (OT / PT coeval) Time Out 1431 Minutes 28 Darius Worrell OT * Yaw Reeves MD - 05/21/2022 8:25 AM EST Patient is seen and examined, admitted by the vending mechanic early a.m., see H&P for details. Patient had a mechanical fall after she tripped over her dog, she hit her forehead but did not loseconsciousness, CT head and C-spine are negative for fracture or subluxation, x-ray pelvis negative. She sustained a acute transverse fracture of the proximal surgical neck of right humerus with mild avulsion fracture of right greater tuberosity, she also has a right elbow effusion, currently sling in place, requesting extra pain medications, Dr. Gresham at bedside and discussed with him, nonsurgical Patient can be discharged home once pain is controlled in 1 to 2 days. * Darius Worrell OT - 05/21/2022 7:43 AM EST Occupational Therapy Facility/Department: [facility] ED Occupational Therapy Initial Evaluation NAME: Gonzalo Deluca : 1955 Date of Service: 05/21/2022 PT/OT evaluation orders received and chart review completed. Pt found to have R proximal humerus fracture and possible R elbow occult right osseous fracture. Ortho consult pending. Will hold for updated POC and weight bearing status prior to initiating evaluation. Darius Worrell OT * Marian Mendosa PT - 05/21/2022 7:40 AM EST Physical Therapy Facility/Department: [facility] ED Physical Therapy Initial Evaluation NAME: Gonzalo Deluca : 1955 Date of Service: 05/21/2022 PT/OT evaluation orders received and chart review completed. Pt found to have R proximal humerus fracture and possible R elbow occult right osseous fracture. Ortho consult pending. Will hold for updated POC and weight bearing status prior to initiating evaluation. Marian Mendosa PT documented in this [place]03-05-2023 Plan of care note* Care Plan - Jennifer Hartley RN - 05/23/2022 9:00 PM EST Problem: Musculoskeletal - Adult Goal: Return mobility to safest level of function Outcome: Progressing Goal: Maintain proper alignment of affected body part Outcome: Progressing Goal: Return ADL status to a safe level of function Outcome: Progressing Problem: Pain Goal: My pain/discomfort is manageable Outcome: Progressing Problem: Safety Goal: Patient will be injury free during hospitalization Outcome: Progressing Goal: I will remain free of falls Outcome: Progressing [id number] Plan of care note* Care Plan - Nicole Swift RN - 05/23/2022 6:02 PM EST Problem: Musculoskeletal - Adult Goal: Return mobility to safest level of function 05/23/2022 180 by Nicole Swift RN Outcome: Progressing 05/23/2022 1802 by Nicole Swift RN Outcome: Progressing Goal: Maintain proper alignment of affected body part 05/23/2022 180 by Nicole Swift RN Outcome: Progressing 05/23/2022 180 by Nicole Swift RN Outcome: Progressing Goal: Return ADL status to a safe level of function 05/23/2022 180 by Nicole Swift RN Outcome: Progressing 05/23/2022 180 by Nicole Swift RN Outcome: Progressing Problem: Pain Goal: My pain/discomfort is manageable 05/23/2022 180 by Nicole Swift RN Outcome: Progressing 05/23/2022 180 by Nicole Swift RN Outcome: Progressing Problem: Safety Goal: Patient will be injury free during hospitalization 05/23/2022 180 by Nicole Swift RN Outcome: Progressing 05/23/2022 180 by Nicole Swift RN Outcome: Progressing Goal: I will remain free of falls 05/23/20221801 by Nicole Swift RN Outcome: Progressing 05/23/2022 180 by Nicole Swift RN Outcome: Progressing [id number] Note* Care Coordination - Unknown Case Management - 05/23/2022 2:13 PM EST Patient Choice Patient Name: GONZALO DELUCA Date of : 1955 All Providers Sent Referral Name: [facility] Phone: [phone] Address: [address] [place] [id number] Note* Care Coordination - Unknown Case Management - 05/23/2022 2:13 PM EST Patient Choice Patient Name: GONZALO DELUCA Date of : 1955 All Providers Sent Referral Name: [facility] Phone: [phone] Address: [address] [place] [id number] [id number] Note* Home Care - Mahsa Castro RN - 05/23/2022 2:03 PM EST Start PACC Note Home Health Referral Educated patient on Home Care and services available. Patient offered choice of available HHC and agreeable to PT/OT services with [facility]. Care Types: None Isolation Precautions: No active isolations Social Determinates of Health: Tobacco Use: Medium Risk Smoking Tobacco Use: Former Smokeless Tobacco Use: Never Passive Exposure: Not on file Social History Substance and Sexual Activity Alcohol Use Not Currently Comment: Approx once a year Social History Substance and Sexual Activity Drug Use No Does the patient have any financial resource strain? No Does the patient have any food insecurities? No Does the patient have any housing instabilities? No If any of the above is noted as yes - consider a DIRECTOR OF ROOMS evaluation once the patient returns home. START PATIENT REGISTRATION INFORMATION Order Information Order Signing Physician: Teresa Cedillo MD Service Ordered RN ?: No Service Ordered PT ?: Yes Service Ordered OT ?: Yes Service Ordered ST ?: No Service Ordered DIRECTOR OF ROOMS?:No Service Ordered COMMUNITY SERVICES COORDINATOR?: No Following Physician: HERMINIA CASE MD Following Physician Overseeing Physician: HERMINIA CASE MD (Required for Residents only) Agreeable to Follow? Office closed Date/Time of Call 05/23/22 2:04 PM Care Coordination SOC Call from [facility] Required?: No Same Day SOC?: No Primary Care Physician: HERMINIA CASE MD Primary Care Physician Primary Care Physician Address: [address] [place] [id number] Visit Instructions: N/A Service Discharge Location Type: Home with Home Health Care Service Facility Name: N/A Service Floor Facility: N/A Service Room No: N/A Demographics Patient Last Name: Yosi Patient First Name: Gonzalo Language/Communication Barrier: n/a Service Address: [facility] Ramesh Bañuelos Service City: [facility] ST: [place] Service ZIP: [address] Service (home) Other phone numbers: Telephone Information: Emergency Contact: Extended Emergency Contact Information Primary Emergency Contact: Karishma Deluca Relation: Child Secondary Emergency Contact: Jace Deluca Relation: Child Admission Information Admit Date: 05/21/2022 Patient status at discharge: Observation Caregiver Information Caregiver First Name: Karishma Caregiver Last Name: Yosi Caregiver Relationship to Patient dtr Caregiver Caregiver Notes: N/A [employer] List No END PATIENT REGISTRATION INFORMATION Pt Home Health goal rehab at home Admitting Diagnosis Facial laceration, initial encounter [S01.81XA] Fall, initial encounter [W19.XXXA] Closed fracture of neck of right humerus, initial encounter [S42.211A] Humeral head fracture, right, closed, initial encounter [S42.291A] COVID Status 1. Do you have any upper respiratory symptoms (cough, SOB, Fever)? No 2. Have you been exposed to anyone with COVID-19 Virus? No Answer only if pending or positive for COVID-19? 1. Agreeable to wear PPE at each visit? N/a 2. Is the hospital supplying them with PPE upon Discharge? N/a Start PACC Summary General Report/ Additional Comments S/P fall Proximal humeral/radial fx, right side Discharge Date: 05/23/22 Referral Source-PACC: (Hospital/Unit): [facility] / B1-147/B1-147 B End PACC Note [id number]* Home Care - Mahsa Castro RN - 05/23/2022 2:03 PM EST Start PACC Note Home Health Referral Educated patient on Home Care and services available. Patient offered choice of available HHC and agreeable to PT/OT services with [facility]. Care Types: None Isolation Precautions: No active isolations Social Determinates of Health: Tobacco Use: Medium Risk Smoking Tobacco Use: Former Smokeless Tobacco Use: Never Passive Exposure: Not on file Social History Substance and Sexual Activity Alcohol Use Not Currently Comment: Approx once a year Social History Substance and Sexual Activity Drug Use No Does the patient have any financial resource strain? No Does the patient have any food insecurities? No Does the patient have any housing instabilities? No If any of the above is noted as yes - consider a DIRECTOR OF ROOMS evaluation once the patient returns home. START PATIENT REGISTRATION INFORMATION Order Information Order Signing Physician: Teresa Cedillo MD Service Ordered RN ?: No Service Ordered PT ?: Yes Service Ordered OT ?: Yes Service Ordered ST ?: No Service Ordered DIRECTOR OF ROOMS?:No Service Ordered COMMUNITY SERVICES COORDINATOR?: No Following Physician: HERMINIA CASE MD Following Physician Overseeing Physician: HERMINIA CASE MD (Required for Residents only) Agreeable to Follow? Office closed Date/Time of Call 05/23/22 2:04 PM Care Coordination SOC Call from [facility] Required?: No Same Day SOC?: No Primary Care Physician: HERMINIA CASE MD Primary Care Physician Primary Care Physician Address: [address] [place] [address] Visit Instructions: N/A Service Discharge Location Type: Home with Home Health Care Service Facility Name: N/A Service Floor Facility: N/A Service Room No: N/A Demographics Patient Last Name: Yosi Patient First Name: Gonzalo Language/Communication Barrier: n/a Service Address: [address] [place] [address] Service City: [facility] ST: [place] Service ZIP: [address] Service (home) Other phone numbers: Telephone Information: Emergency Contact: Extended Emergency Contact Information Primary Emergency Contact: Karishma Deluca Relation: Child Secondary Emergency Contact: Jaec Deluca Relation: Child Admission Information Admit Date: 05/21/2022 Patient status at discharge: Observation Caregiver Information Caregiver First Name: Karishma Caregiver Last Name: Yosi Caregiver Relationship to Patient dtr Caregiver Caregiver Notes: N/A [employer] List No END PATIENT REGISTRATION INFORMATION Pt Home Health goal rehab at home Admitting Diagnosis Facial laceration, initial encounter [S01.81XA] Fall, initial encounter [W19.XXXA] Closed fracture of neck of right humerus, initial encounter [S42.211A] Humeral head fracture, right, closed, initial encounter [S42291A] COVID Status 1. Do you have any upper respiratory symptoms (cough, SOB, Fever)? No 2. Have you been exposed to anyone with COVID-19 Virus? No Answer only if pending or positive for COVID-19? 1. Agreeable to wear PPE at each visit? N/a 2. Is the hospital supplying them with PPE upon Discharge? N/a Start PACC Summary General Report/ Additional Comments S/P fall Proximal humeral/radial fx, right side Discharge Date: 05/23/22 Referral Source-PACC: (Hospital/Unit): [facility] / B1-147/B1-147 B End PACC Note [id number] Hospital Discharge instructions* Discharge Instr - Activity* Teresa Cedillo MD - 05/23/2022 12:34 PM EST Non weight bearing right upper extremity Continue shoulder immobilizer * Discharge Instr - Diet* Teresa Cedillo MD - 05/23/2022 12:35 PM EST Regular diet * Discharge Instr - Other Orders* Mahsa Castro RN - 05/23/2022 2:03 PM EST Discharging to Facility/ Agency [facility]: [facility] Address: [address] [place] [address] * Discharge Instr - SHAMA* Deanna Romero LPN - 05/24/2022 10:49 AM EST Continuity of Care Form Patient Name: Gonzalo Deluca : 1955 Admit date: 05/21/2022 Discharge date: Code Status Order: Full Code Advance Directives: N Admitting Physician: Teresa Cedillo MD PCP: HERMINIA CASE MD Discharging Nurse: Discharging Hospital Unit/Room#: B1-147/B1-147 B Discharging Unit Phone Number: Emergency Contact: Extended Emergency Contact Information Primary Emergency Contact: Karishma Deluca Relation: Child Secondary Emergency Contact: Jace Deluca Relation: Child Past Surgical History: Past Surgical History: Procedure Laterality Date CYSTOSCOPY 01/12/2017 OFFICE PROCEDURE CYSTOSCOPY 02/11/2017 C&P bladder biopsy EYE SURGERY detached retina 1994 HYSTERECTOMY 11/06/2019 ABDOMINAL RADICAL HYSTERECTOMY WITH BSO AND PELVIC LYMPH; [facility] OTHER [facility]GICAL HISTORY Left 12/19/2019 Med Port POWER Regular Size TUBAL LIGATION 1992 Immunization History: Immunization History Administered Date(s) Administered Influenza, Unspecified 01/10/2018 Tdap 08/08/2016 Active Problems: Medical Problems Problem List * (Principal) Fall, initial encounter Other specified complication of vascular prosthetic devices, implants and grafts, initial encounter(HCC) Acute exacerbation of chronic obstructive pulmonary disease (HCC) Humeral head fracture, right, closed, initial encounter Poor venous access Chronic back pain COPD (chronic obstructive pulmonary disease) (HCC) Overview Signed 01/01/2022 6:48 AM by Interface, Incoming Problems- [facility] Conversion On home 3-4L NC DDD (degenerative disc disease), cervical Emphysema lung (HCC) Leukocytosis Malignant neoplasm of exocervix (HCC) Moderate malnutrition (CMS/HCC) (HCC) Recurrent major depression (HCC) Pulmonary nodule Overview Signed 01/01/2022 6:48 AM by Interface, Incoming Problems- [facility] Conversion Per CT CHest 09/2015: 12 mm nodule (R), 5 mm nodule (L); unchanged CT Chest 08/2016 Right arm weakness S/P hysterectomy Sciatica Shortness of breath Supplemental oxygen dependent Thoracic compression fracture (HCC) PNA (pneumonia) H/O: CVA (cerebrovascular accident) Chronic obstructive pulmonary disease with (acute) exacerbation (HCC) COPD exacerbation (CMS/HCC) (HCC) Former smoker Isolation/Infection: No active isolations No active infections Nurse Assessment: Last Vital Signs: BP 126/73 Pulse 98 Temp 36.9 C (98.5 F) (Temporal) Resp 16 Ht 1.651 m (5'5") Wt 66.3 kg (146 lb 2.6 oz) SpO2 92% BMI 24.32 kg/m Last documented pain score (0-10 scale): Last Weight: Wt Readings from Last 1 Encounters: 05/22/22 66.3 kg (146 lb 2.6 oz) Mental Status: {SHAMA Patient Mental Status:77259} IV Access: {SHAMA IV Access:67244} Nursing Mobility/ADLs: Walking {YANETH ADL:93861::"Independent"} Transfer {YANETH ADL:03791::"Independent"} Bathing {YANETH ADL:07607::"Independent"} Dressing {YANETH ADL:74730::"Independent"} Toileting {YANETH ADL:03958::"Independent"} Feeding {YANETH ADL:13239::"Independent"} Instrumentation Instructor {YANETH ADL:29458::"Independent"} Med Delivery {yes/no:86251} Wound Care Documentation and Therapy: Wound/Incision 05/21/22 Traumatic Eye Right (Active) Site Assessment Swelling 05/24/22 0755 Odor None 05/23/22 0941 Drainage Amount None 05/24/22 0755 Primary Dressing Open to air 05/24/22 0755 Number of days: 2 Wound/Incision 05/21/22 Traumatic Wrist Left;Posterior (Active) Site Assessment [place] 05/24/22 0755 Odor None 05/24/22 0755 Drainage Amount None 05/24/22 0755 Primary Dressing Steri-strips 05/24/22 0755 Dressing Status Dry;Intact 05/24/22 0755 Number of days: 2 Elimination: Continence: Bowel: {yes/no:38698} Bladder: {yes/no:88955} Urinary Catheter: {SHAMA Urinary Catheter:42054} Colostomy/Ileostomy/Ileal Conduit: {YES / NO:56957} Date of Last BM: No intake or output data in the 24 hours ending 05/24/22 1049 No intake/output data recorded. Safety Concerns: {SHAMA Safety Concerns:19877} Impairments/Disabilities: {SHAMA Impairments/Disabilities:08815} Nutrition Therapy: Current Nutrition Therapy: {SHAMA Diet List:89393} Routes of Feeding: {routes of feedin} Liquids: {liquid consistency:54343} Daily Fluid Restriction: {daily fluid restriction:15594} Last Modified Barium Swallow with Video (Video Swallowing Test): {done not done:43715} Treatments at the Time of Hospital Discharge: Respiratory Treatments: Oxygen Therapy: {Therapy; copd oxygen:30238} Ventilator: {SHAMA Ventilator:62265} Rehab Therapies: {GEN THERAPY DISCIPLINE SCAL:1661779} Weight Bearing Status/Restrictions: {POD WEIGHT BEARIN} Other Medical Equipment (for information only, NOT a DME order): {Assistive Devices DME:77890} Other Treatments: Patient's personal belongings (please select all that are sent with patient): {SHAMA Patient Belongings:57722} RN SIGNATURE: {E-signature:61171} CASE MANAGEMENT/SOCIAL WORK SECTION Inpatient Status Date: Readmission Risk Assessment Score: Predictive Model Details Model IP RISK OF UNPLANNED READMISSION [[id number]] is not released. No score information can be retrieved Discharging to Facility/ Agency Name: Address: Phone: Fax: Dialysis Facility (if applicable) Name: Address: Dialysis Schedule: Phone: Fax: Skiing [facility] signature: {E-signature:03007} PHYSICIAN SECTION Prognosis: {Rehab Prognosis:16585} Condition at Discharge: {Patient Condition:57358} Rehab Potential (if transferring to Rehab): {Rehab Prognosis:89739} Recommended Labs or Other Treatments After Discharge: Physician Certification: I certify the above information and transfer of Gonzalo Deluca is necessary for the continuing treatment of the diagnosis listed and that she requires {SHAMA Level of Care:26248} for {greater less than:91619} 30 days. Update Admission H&P: {SHAMA Changes in H&P:78945} PHYSICIAN SIGNATURE: {E-signature:73831} Discharging to Facility/ Agency Name: [facility] Address: [address] [place] [address] documented in this [place]03-04-2023 Note* Care Coordination - Phillip Gurrola RN - 05/22/2022 4:48 PM EST Care Managment Initial Assessment Date: 05/22/2022 Patient Name: Gonzalo Deluca : 1955 Patient Information Source of Information: Patient Name/Contact Information: KARISHMA DELUCA [phone] DAUGHTER Cognition/Language: WFL - Within Functional Limits Permission given to speak with patient financial sales representative/caregiver as indicated: Yes Confirmation of Payer with patient/family: Yes Payer Name: [facility] DUAL COMPLETE [place]: No Confirmation of Primary Care Physician: Confirmed PCP Name: DR. CASE Seen in last 2 years?: Yes Primary Caregiver: Self If assistance needed, confirmed caregiver ready, willing and able to care for patient at discharge: Confirmed with: Living Arrangements Current Residence: House Number of Floors 2 Number of Entry Steps: 1 Bed/Bath Levels: Both first floor Facility: Facility Name: Plan to Return: Yes Lives with: Support Systems: Children (DAUGHTER AND DAUGHTER'S BOYFRIEND AND 6 YEAR OLD GRANDDAUGHTER) Activities of Daily Living Ambulation: Independent Bathing/Dressing: Independent Elimination/Continence/Toileting: Independent Feeding: Independent Who Assists with Activities of Daily Living: NA Instrumental Activities of Daily Living Prescription Coverage: Yes Pharmacy Used: [facility] [place] Medication Management: Prescription pick-up Who assists with medication securing and setup?: DAUGHTER PICKS UP OR HAS MEDS DELIVERED Transportation/Shopping: Assistance Provider Transportation/Shopping Assistance Provider Name: DAUGHTER Transportation Mode: Car Needs Assistance with Transportation at Discharge: No (DAUGHTER) Meal Preparation: Independent Laundry/Cleaning: Independent Finances/Bill Paying: Independent Communication: Independent Types of Care Services/Equipment Utilized Care Services: Dialysis Type: NA Durable Medical Equipment: Oxygen (Continuous or prn) Oxygen Flow Rate: 2.5 LITERS CONT DME Provider: [facility] Patient's Goal/Discharge Plan Patient expects to be discharged to: HOME WITH [facility] Discharge Planning Actions: Continue to follow Patient's Choice Rights and [employer] and Collaborative Relationships Disclosed as Indicated for Post-Acute Care: NA Interdisciplinary Team Engagement: Home Health Care, PT/OT Social Work Referral for: Additional Information: Admitted from home following a fall. Sustained right shoulder and elbow fracture. Admitted to [facility] ortho consulted, has sling in place to right arm. Pt/ot and pain control. Discharge preparation checklist reviewed with patient. Has prescription coverage and able to afford medications. Reviewed therapy evals and recommendations of snf with patient and she is electing to discharge to home with [facility] services. business liaison officer updated via [facility]. Patient states lives at home with her daughter, prem's boyfriend, and her 6 year granddaughter. States her daughter plans on taking FMLA and staying with her while she recovers. Patient does wear oxygen at 2.5 liters at home cont. Denies anticipating any additional needs upon discharge. Discharge plan home with [facility] when medically stable. Anticipate probable discharge in the am.. Phillip Gurrola RN [id number] Note* Care Coordination - Phillip Gurrola RN - 05/22/2022 4:48 PM EST Care Managment Initial Assessment Date: 05/22/2022 Patient Name: Gonzalo Deluca : 1955 Patient Information Source of Information: Patient Name/Contact Information: KARISHMA DELUCA [phone] DAUGHTER Cognition/Language: WFL - Within Functional Limits Permission given to speak with patient financial sales representative/caregiver as indicated: Yes Confirmation of Payer with patient/family: Yes Payer Name: [facility] DUAL COMPLETE [place]: No Confirmation of Primary Care Physician: Confirmed PCP Name: DR. CASE Seen in last 2 years?: Yes Primary Caregiver: Self If assistance needed, confirmed caregiver ready, willing and able to care for patient at discharge: Confirmed with: Living Arrangements Current Residence: House Number of Floors 2 Number of Entry Steps: 1 Bed/Bath Levels: Both first floor Facility: Facility Name: [facility] Plan to Return: Yes Lives with: Support Systems: Children (DAUGHTER AND DAUGHTER'S BOYFRIEND AND 6 YEAR OLD GRANDDAUGHTER) Activities of Daily Living Ambulation: Independent Bathing/Dressing: Independent Elimination/Continence/Toileting: Independent Feeding: Independent Who Assists with Activities of Daily Living: NA Instrumental Activities of Daily Living Prescription Coverage: Yes Pharmacy Used: [facility] [place] Medication Management: Prescription pick-up Who assists with medication securing and setup?: DAUGHTER PICKS UP OR HAS MEDS DELIVERED Transportation/Shopping: Assistance Provider Transportation/Shopping Assistance Provider Name: DAUGHTER Transportation Mode: Car Needs Assistance with Transportation at Discharge: No (DAUGHTER) Meal Preparation: Independent Laundry/Cleaning: Independent Finances/Bill Paying: Independent Communication: Independent Types of Care Services/Equipment Utilized Care Services: Dialysis Type: NA Durable Medical Equipment: Oxygen (Continuous or prn) Oxygen Flow Rate: 2.5 LITERS CONT DME Provider: [facility] Patient's Goal/Discharge Plan Patient expects to be discharged to: HOME WITH [facility] Discharge Planning Actions: Continue to follow Patient's Choice Rights and [employer] and Collaborative Relationships Disclosed as Indicated for Post-Acute Care: NA Interdisciplinary Team Engagement: Home Health Care, PT/OT Social Work Referral for: Additional Information: Admitted from home following a fall. Sustained right shoulder and elbow fracture. Admitted to [facility] ortho consulted, has sling in place to right arm. Pt/ot and pain control. Discharge preparation checklist reviewed with patient. Has prescription coverage and able to afford medications. Reviewed therapy evals and recommendations of snf with patient and she is electing to discharge to home with [facility] services. business liaison officer updated via [facility]. Patient states lives at home with her daughter, prem's boyfriend, and her 6 year granddaughter. States her daughter plans on taking FMLA and staying with her while she recovers. Patient does wear oxygen at 2.5 liters at home cont. Denies anticipating any additional needs upon discharge. Discharge plan home with [facility] when medically stable. Anticipate probable discharge in the am.. Phillip Gurrola RN [id number] Plan of care note* Care Plan - Nicole Swift RN - 05/22/2022 3:59 PM EST Problem: Musculoskeletal - Adult Goal: Return mobility to safest level of function 05/22/2022 1559 by Nicole Swift RN Outcome: Progressing 05/22/2022 1558 by Nicole Swift RN Outcome: Progressing Goal: Maintain proper alignment of affected body part 05/22/2022 1559 by Nicole Siwft RN Outcome: Progressing 05/22/2022 1558 by Nicole Swift RN Outcome: Progressing Goal: Return ADL status to a safe level of function 05/22/2022 1559 by Nicole Swift RN Outcome: Progressing 05/22/2022 1558 by Nicole Swift RN Outcome: Progressing Problem: Pain Goal: My pain/discomfort is manageable 05/22/2022 1559 by Nicole Swift RN Outcome: Progressing 05/22/2022 1558 by Nicole Swift RN Outcome: Progressing Problem: Safety Goal: Patient will be injury free during hospitalization 05/22/2022 1559 by Nicole Swift RN Outcome: Progressing 05/22/2022 1558 by Nicole Swift RN Outcome: Progressing Goal: I will remain free of falls 05/22/2022 1559 by Nicole Swift RN Outcome: Progressing 05/22/2022 1558 by Nicole Swift RN Outcome: Progressing [facility] [id number] Plan of care note* Care Plan - Jennifer Hartley RN - 05/21/2022 10:34 PM EST Problem: Musculoskeletal - Adult Goal: Return mobility to safest level of function Outcome: Progressing Goal: Maintain proper alignment of affected body part Outcome: Progressing Goal: Return ADL status to a safe level of function Outcome: Progressing Problem: Pain Goal: My pain/discomfort is manageable Outcome: Progressing Problem: Safety Goal: Patient will be injury free during hospitalization Outcome: Progressing Goal: I will remain free of falls Outcome: Progressing [facility] [id number] Consult note* Betsey Gresham MD - 05/21/2022 10:16 AM ESTAssociated Order(s): Inpatient consult to Orthopaedic Surgery Inpatient consult to Orthopaedic Surgery Consult performed by: Betsey Gresham MD Consult ordered by: Dianne Dale Consult Note Date:05/21/2022 Patient Name:Gonzalo Deluca Date of :1955 Age:66 y.o. Reason for Consult: Right upper extremity injury Chief Complaint Chief Complaint Patient presents with Fall Arm Injury Laceration Right arm pain History Obtained From Patient History of Present Illness This patient fell yesterday when she missed a step. She is found to have fractures in her right upper extremity. She complains of pain in this area no other complaints of pain or injury. Past Medical History Past Medical History: Diagnosis Date Abnormal stress test Allergic rhinitis Arthritis Asthma Bronchitis Cancer (CMS/HCC) skin Cervical cancer (CMS/HCC) Chest pain COPD (chronic obstructive pulmonary disease) (CMS/HCC) USE OXYGEN 3 L AT NIGHT DDD (degenerative disc disease), cervical Defect, retina, with detachment right DJD (degenerative joint disease), lumbar Emphysema lung (CMS/HCC) Former smoker Hematuria SCHEDULED FOR THE PROCEDURE /SURGERY ON 02/11/2017 Hypokalemia Lung nodules Osteoporosis Palpitations Pneumonia Recurrent major depression (CMS/HCC) Sciatica Thoracic compression fracture (CMS/HCC) Vitamin D deficiency Past Surgical History Past Surgical History: Procedure Laterality Date CYSTOSCOPY 01/12/2017 OFFICE PROCEDURE CYSTOSCOPY 02/11/2017 C&P bladder biopsy EYE SURGERY detached retina 1994 HYSTERECTOMY 11/06/2019 ABDOMINAL RADICAL HYSTERECTOMY WITH BSO AND PELVIC LYMPH; DR. ZIYAD MENENDEZ [facility] OTHER SURGICAL HISTORY Left 12/19/2019 Med Port POWER Regular Size TUBAL LIGATION 1992 Medications Prior to Admission medications Medication Sig Start Date End Date Taking? Authorizing Provider albuterol 108 (90 Base) MCG/ACT inhaler Inhale 2 puffs every 4 hours as needed. 08/06/21 Historical Provider, alendronate (Fosamax) 70 MG tablet Take 70 mg by mouth once a week. 12/14/21 12/14/22 Historical Provider, aspirin 81 MG EC tablet Take 81 mg by mouth. 11/25/19 Historical Provider, atorvastatin (Lipitor) 40 MG tablet Take 1 tablet by mouth Nightly. 11/24/19 Historical Provider, buPROPion XL (Wellbutrin XL) 150 MG 24 hr tablet Take 150 mg by mouth in the morning. 08/06/21 08/06/22 Historical Provider, clonazePAM (KlonoPIN) 0.5 MG tablet Take 1 tablet by mouth Nightly. 11/24/19 Historical Provider, diphenhydrAMINE (Sominex) 25 MG tablet Take 25 mg by mouth. Historical Provider, doxycycline (Vibramycin) 100 MG capsule 01/30/20 Historical Provider, fluticasone (Flonase) 50 MCG/ACT nasal spray 2 sprays in the morning. 08/06/21 08/06/22 Historical Provider, gabapentin (Neurontin) 600 MG tablet Take 1 tablet by mouth daily. 02/08/20 Historical Provider, montelukast (Singulair) 10 MG tablet Take 10 mg by mouth Nightly. Historical Provider, potassium chloride CR (Klor-Con M20) 20 MEQ ER tablet Take 2 tablets by mouth daily. 02/08/20 Historical Provider, sertraline (Zoloft) 100 MG tablet Take 200 mg by mouth in the morning. 02/02/21 Historical Provider, tiotropium (Spiriva Respimat) 2.5 MCG/ACT inhaler Inhale 2 puffs in the morning. 11/20/21 Historical Provider, Allergies Pollen extract Social History reports that she quit smoking about 10 years ago. Her smoking use included cigarettes. She smoked an average of 1.5 packs per day. She has never used smokeless tobacco. She reports current alcohol use. She reports that she does not use drugs. Family History Family History Problem Relation Name Age of Onset Colon cancer Neg Hx Ovarian cancer Neg Hx Cancer Mother breast- to liver Cancer Sister breast Cancer Father lung to brain No Known Problems Brother Uterine cancer Neg Hx Review of Systems Negative except that stated Physical Exam BP 112/81 Pulse 103 Temp 37.2 C (98.9 F) (Oral) Resp 16 SpO2 97% General: Well-developed, well-nourished, appears her stated age of 66 she is in no acute distress. Contusions are noted about the right supraorbital area. Vascular: No cyanosis, clubbing or edema in the upper extremities Neurologic: Alert and oriented x3, mood and affect normal, sensory exams intact to light touch bilateral upper extremities. Musculoskeletal: Swelling is present about the right shoulder and the right elbow. She is immobilized in a shoulder immobilizer. Hand, wrist and finger motion is normal. Pain on palpation about the shoulder and the elbow. Skin: Facial ecchymosis as above. Labs CBC: Recent Labs 05/21/22 0526 WBC 12.1* RBC 4.09 HGB 12.5 HCT 39.0 MCV 95.4 RDW 14.0 PLT 339 CHEMISTRIES: Recent Labs 05/21/22 0526 NA 138 K 4.2 CL 103 CO2 35* BUN 15 CREATININE 0.78 GLUCOSE 116* MG 2.6* PT/INR:No results for input(s): PROTIME, INR in the last 72 hours. APTT:No results for input(s): APTT in the last 72 hours. LIVER PROFILE:No results for input(s): AST, ALT, BILIDIR, BILITOT, ALKPHOS in the last 72 hours. Imaging/Diagnostics Reviewed x-rays include normal CT scan of the cervical spine other than degenerative disc disease and normal AP pelvis. Although x-ray of the right elbow shows no fracture she has osteopenia and there is an anterior fatpad and posterior fat pad sign consistent with occult radial head fracture. Right shoulder shows a mildly displaced right surgical neck and minimally displaced right greater tuberosity fracture. Assessment 1. Three-part humerus fracture, greater tuberosity and right surgical neck 2. Occult right radial head fracture Plan 1. Her fractures will be adequately treated with shoulder immobilization. Nonweightbearing and no range of motion through the shoulder or the elbow. PT and OT are ordered they can proceed with this. She states she has help at home. She can be discharged when independent with mobilization. Follow-up information is on the chart. Dr. Ventura will cover the weekend if there is any issues. [employer] Work Phone: [phone] Consult note* Betsey Gresham MD - [facility]22 [facility] to Orthopaedic Surgery Inpatient consult to Orthopaedic Surgery Consult performed by: Betsey Gresham MD Consult ordered by: Dianne Dale Consult Note Date:05/21/2022 Patient Name:Gonzalo Deluca Date of :1955 Age:66 y.o. Reason for Consult: Right upper extremity injury Chief Complaint Chief Complaint Patient presents with Fall Arm Injury Laceration Right arm pain History Obtained From Patient History of Present Illness This patient fell yesterday when she missed a step. She is found to have fractures in her right upper extremity. She complains of pain in this area no other complaints of pain or injury. Past Medical History Past Medical History: Diagnosis Date Abnormal stress test Allergic rhinitis Arthritis Asthma Bronchitis Cancer (CMS/HCC) skin Cervical cancer (CMS/HCC) Chest pain COPD (chronic obstructive pulmonary disease) (CMS/[facility]) USE OXYGEN 3 L AT NIGHT DDD (degenerative disc disease), cervical Defect, retina, with detachment right DJD (degenerative joint disease), lumbar Emphysema lung (CMS/HCC) Former smoker Hematuria SCHEDULED FOR THE PROCEDURE /SURGERY ON 02/11/2017 Hypokalemia Lung nodules Osteoporosis Palpitations Pneumonia Recurrent major depression ([facility]) Sciatica Thoracic compression fracture ([facility]) Vitamin D deficiency Past Surgical History Past Surgical History: Procedure Laterality Date CYSTOSCOPY 01/12/2017 OFFICE PROCEDURE CYSTOSCOPY 02/11/2017 C&P bladder biopsy EYE SURGERY detached retina 1994 HYSTERECTOMY 11/06/2019 ABDOMINAL RADICAL HYSTERECTOMY WITH BSO AND PELVIC LYMPH; DR. ZIYAD MENENDEZ [facility] OTHER SURGICAL HISTORY Left 12/19/2019 Med Port POWER Regular Size TUBAL LIGATION 1992 Medications Prior to Admission medications Medication Sig Start Date End Date Taking? Authorizing Provider albuterol 108 (90 Base) MCG/ACT inhaler Inhale 2 puffs every 4 hours as needed. 08/06/21 Historical Provider, alendronate (Fosamax) 70 MG tablet Take 70 mg by mouth once a week. 12/14/21 12/14/22 Historical Provider, aspirin 81 MG EC tablet Take 81 mg by mouth. 11/25/19 Historical Provider, atorvastatin (Lipitor) 40 MG tablet Take 1 tablet by mouth Nightly. 11/24/19 Historical Provider, buPROPion XL (Wellbutrin XL) 150 MG 24 hr tablet Take 150 mg by mouth in the morning. 08/06/21 08/06/22 Historical Provider, clonazePAM (KlonoPIN) 0.5 MG tablet Take 1 tablet by mouth Nightly. 11/24/19 Historical Provider, diphenhydrAMINE (Sominex) 25 MG tablet Take 25 mg by mouth. Historical Provider, doxycycline (Vibramycin) 100 MG capsule 01/30/20 Historical Provider, fluticasone (Flonase) 50 MCG/ACT nasal spray 2 sprays in the morning. 08/06/21 08/06/22 Historical Provider, gabapentin (Neurontin) 600 MG tablet Take 1 tablet by mouth daily. 02/08/20 Historical Provider, montelukast (Singulair) 10 MG tablet Take 10 mg by mouth Nightly. Historical Provider, potassium chloride CR (Klor-Con M20) 20 MEQ ER tablet Take 2 tablets by mouth daily. 02/08/20 Historical Provider, sertraline (Zoloft) 100 MG tablet Take 200 mg by mouth in the morning. 02/02/21 Historical Provider, tiotropium (Spiriva Respimat) 2.5 MCG/ACT inhaler Inhale 2 puffs in the morning. 11/20/21 Historical Provider, Allergies Pollen extract Social History reports that she quit smoking about 10 years ago. Her smoking use included cigarettes. She smoked an average of 1.5 packs per day. She has never used smokeless tobacco. She reports current alcohol use. She reports that she does not use drugs. Family History Family History Problem Relation Name Age of Onset Colon cancer Neg Hx Ovarian cancer Neg Hx Cancer Mother breast- to liver Cancer Sister breast Cancer Father lung to brain No Known Problems Brother Uterine cancer Neg Hx Review of Systems Negative except that stated Physical Exam BP 112/81 Pulse 103 Temp 37.2 C (98.9 F) (Oral) Resp 16 SpO2 97% General: Well-developed, well-nourished, appears her stated age of 66 she is in no acute distress. Contusions are noted about the right supraorbital area. Vascular: No cyanosis, clubbing or edema in the upper extremities Neurologic: Alert and oriented x3, mood and affect normal, sensory exams intact to light touch bilateral upper extremities. Musculoskeletal: Swelling is present about the right shoulder and the right elbow. She is immobilized in a shoulder immobilizer. Hand, wrist and finger motion is normal. Pain on palpation about the shoulder and the elbow. Skin: Facial ecchymosis as above. Labs CBC: Recent Labs 05/21/22 0526 WBC 12.1* RBC 4.09 HGB 12.5 HCT 39.0 MCV 95.4 RDW 14.0 PLT 339 CHEMISTRIES: Recent Labs 05/21/22 0526 NA 138 K 4.2 CL 103 CO2 35* BUN 15 CREATININE 0.78 GLUCOSE 116* MG 2.6* PT/INR:No results for input(s): PROTIME, INR in the last 72 hours. APTT:No results for input(s): APTT in the last 72 hours. LIVER PROFILE:No results for input(s): AST, ALT, BILIDIR, BILITOT, ALKPHOS in the last 72 hours. Imaging/Diagnostics Reviewed x-rays include normal CT scan of the cervical spine other than degenerative disc disease and normal AP pelvis. Although x-ray of the right elbow shows no fracture she has osteopenia and there is an anterior fatpad and posterior fat pad sign consistent with occult radial head fracture. Right shoulder shows a mildly displaced right surgical neck and minimally displaced right greater tuberosity fracture. Assessment 1. Three-part humerus fracture, greater tuberosity and right surgical neck 2. Occult right radial head fracture Plan 1. Her fractures will be adequately treated with shoulder immobilization. Nonweightbearing and no range of motion through the shoulder or the elbow. PT and OT are ordered they can proceed with this. She states she has help at home. She can be discharged when independent with mobilization. Follow-up information is on the chart. Dr. Ventura will cover the weekend if there is any issues. documented in this [place]03-03-2023 Emergency department Note* Erna Smalls RN - 05/21/2022 8:00 AM EST Pt repositioned in bed Erna Smalls RN 05/21/2236 [id number] Emergency department Note* Erna Smalls RN - 05/21/2022 8:00 AM EST Pt repositioned in bed Erna Smalls RN 05/21/2236 * Martha Flores MD - 05/21/2022 2:26 AM ESTAssociated Order(s): Laceration Repair; Laceration Repair; Laceration Repair Images from the original note were not included. EMERGENCY DEPARTMENT ENCOUNTER Pt Name: Gonzalo Deluca Birthdate 1955 Date of evaluation: 05/21/2022 ED Provider: Martha Flores MD CHIEF COMPLAINT Chief Complaint Patient presents with Fall Arm Injury Laceration HISTORY OF PRESENT ILLNESS (Location/Symptom, Timing/Onset, Context/Setting, Quality, Duration, Modifying Factors, Severity) Note limiting factors. I wore appropriate PPE for the entirety of this encounter. HPI Gonzalo Deluca is a 66 y.o. female with a past medical history significant for cancer, COPD, degenerative disc disease, and depression who presents to the emergency department for evaluation after a fall. Patient states was taking the dogs out when she missed her step and fell. She states she landed onto her right shoulder. States she states since then she was not able to move her right elbow or shoulder due to pain. Patient also endorses hitting her head during the incident. She denies any chest pain, shortness of breath, abdominal pain or nausea and vomiting. Patient also denies any pelvic pain or inability to ambulate. She states however given the amount of pain that she had in the blood coming from her head she did call EMS for transport to the hospital. Nursing Notes were reviewed. Limitations to history: None Outside historians: None REVIEW OF SYSTEMS Review of Systems Constitutional: Negative for chills and fever. HENT: Negative for ear pain and sore throat. Eyes: Negative for pain and visual disturbance. Respiratory: Negative for cough and shortness of breath. Cardiovascular: Negative for chest pain and palpitations. Gastrointestinal: Negative for abdominal pain and vomiting. Genitourinary: Negative for dysuria and hematuria. Musculoskeletal: Positive for arthralgias (Right shoulder and elbow). Negative for back pain. Skin: Negative for color change and rash. Neurological: Negative for seizures and syncope. Psychiatric/Behavioral: Negative for confusion. All other systems reviewed and are negative. PAST MEDICAL HISTORY Past Medical History: Diagnosis Date Abnormal stress test Allergic rhinitis Arthritis Asthma Bronchitis Cancer (CMS/HCC) skin Cervical cancer (CMS/HCC) Chest pain COPD (chronic obstructive pulmonary disease) (CMS/HCC) USE OXYGEN 3 L AT NIGHT DDD (degenerative disc disease), cervical Defect, retina, with detachment right DJD (degenerative joint disease), lumbar Emphysema lung (CMS/HCC) Former smoker Hematuria SCHEDULED FOR THE PROCEDURE /SURGERY ON 02/11/2017 Hypokalemia Lung nodules Osteoporosis Palpitations Pneumonia Recurrent major depression (CMS/HCC) Sciatica Thoracic compression fracture (CMS/HCC) Vitamin D deficiency SURGICAL HISTORY Past Surgical History: Procedure Laterality Date CYSTOSCOPY 01/12/2017 OFFICE PROCEDURE CYSTOSCOPY 02/11/2017 C&P bladder biopsy EYE SURGERY detached retina 1994 HYSTERECTOMY 11/06/2019 ABDOMINAL RADICAL HYSTERECTOMY WITH BSO AND PELVIC LYMPH; DR. ZIYAD FISH OTHER SURGICAL HISTORY Left 12/19/2019 Med Port POWER Regular Size TUBAL LIGATION 1992 CURRENT MEDICATIONS Previous Medications ALBUTEROL 108 (90 BASE) MCG/ACT INHALER Inhale 2 puffs every 4 hours as needed. ALENDRONATE (FOSAMAX) 70 MG TABLET Take 70 mg by mouth once a week. ASPIRIN 81 MG EC TABLET Take 81 mg by mouth. ATORVASTATIN (LIPITOR) 40 MG TABLET Take 1 tablet by mouth Nightly. BUPROPION XL (WELLBUTRIN XL) 150 MG 24 HR TABLET Take 150 mg by mouth in the morning. CLONAZEPAM (KLONOPIN) 0.5 MG TABLET Take 1 tablet by mouth Nightly. DIPHENHYDRAMINE (SOMINEX) 25 MG TABLET Take 25 mg by mouth. DOXYCYCLINE (VIBRAMYCIN) 100 MG CAPSULE FLUTICASONE (FLONASE) 50 MCG/ACT NASAL SPRAY 2 sprays in the morning. GABAPENTIN (NEURONTIN) 600 MG TABLET Take 1 tablet by mouth daily. MONTELUKAST (SINGULAIR) 10 MG TABLET Take 10 mg by mouth Nightly. POTASSIUM CHLORIDE CR (KLOR-CON M20) 20 MEQ ER TABLET Take 2 tablets by mouth daily. SERTRALINE (ZOLOFT) 100 MG TABLET Take 200 mg by mouth in the morning. TIOTROPIUM (SPIRIVA RESPIMAT) 2.5 MCG/ACT INHALER Inhale 2 puffs in the morning. ALLERGIES Pollen extract FAMILY HISTORY Family History Problem Relation Name Age of Onset Colon cancer Neg Hx Ovarian cancer Neg Hx Cancer Mother breast- to liver Cancer Sister breast Cancer Father lung to brain No Known Problems Brother Uterine cancer Neg Hx SOCIAL HISTORY Social History Socioeconomic History Marital status: Tobacco Use Smoking status: Former Packs/day: 1.50 Types: Cigarettes Quit date: 09/20/2011 Years since quittin.6 Smokeless tobacco: Never Tobacco comments: Quit smoking: pt states she quit 4-5 years ago Substance and Sexual Activity Alcohol use: Yes Alcohol/week: 0.0 standard drinks Drug use: No SCREENINGS PHYSICAL EXAM ED Triage Vitals [05/21/22 0237] Temp Heart Rate Resp BP 37.2 C (98.9 F) 88 20 (!) 113/92 SpO2 Temp Source Heart Rate Source Patient Position 98 % Oral Monitor Lying BP Location FiO2 (%) Left arm -- Physical Exam Vitals and nursing note reviewed. Constitutional: General: She is not in acute distress. Appearance: She is well-developed. HENT: Head: Normocephalic. Laceration (Laceration at the marked site.) present. Right Ear: Tympanic membrane and external ear normal. Left Ear: Tympanic membrane and external ear normal. Mouth/Throat: Mouth: Mucous membranes are moist. Pharynx: Oropharynx is clear. Eyes: Extraocular Movements: Extraocular movements intact. Conjunctiva/sclera: Conjunctivae normal. Pupils: Pupils are equal, round, and reactive to light. Cardiovascular: Rate and Rhythm: Normal rate and regular rhythm. Heart sounds: No murmur heard. Pulmonary: Effort: Pulmonary effort is normal. No respiratory distress. Breath sounds: Normal breath sounds. Abdominal: Palpations: Abdomen is soft. Tenderness: There is no abdominal tenderness. Musculoskeletal: General: Tenderness (Right shoulder with tenderness to palpation as well as right elbow. Patient unable to range right elbow due to pain. Wrist with full range of motion. Cap refill 2 seconds on the fingers. Patient with intact strength of the hand. .) present. No swelling. Cervical back: Neck supple. No tenderness. Lymphadenopathy: Cervical: No cervical adenopathy. Skin: General: Skin is warm and dry. Capillary Refill: Capillary refill takes less than 2 seconds. Neurological: Mental Status: She is alert. Psychiatric: Mood and Affect: Mood normal. DIAGNOSTIC RESULTS RADIOLOGY (Per Emergency Physician): Interpretation per the Radiologist below, if available at the time of this note: CT cervical spine wo IV contrast Final Result 1. No fracture or subluxation of the cervical vertebrae. 2. 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 3. Diffuse osteopenia. 4. Emphysema. Report Dictated on Electronically Signed By: Jaspreet Jeong Electronically Signed Date/Time: 05/21/2022 4:[address] head wo IV contrast Final Result No acute intracranial process. Minimal right periorbital soft tissue swelling. Report Dictated on Electronically Signed By: Jaspreet Jeong Electronically Signed Date/Time: 05/21/2022 4:38 AM EST XR pelvis 1 or 2 views Final Result No acute traumatic osseous abnormality. Osteopenia. Report Dictated on Electronically Signed By: Jaspreet Jeong Electronically Signed Date/Time: 05/21/2022 4:17 AM EST XR chest 1 view Final Result 1. Lines/ tubes/ devices: Left IJ MediPort catheter tip terminates in the mid SVC, unchanged. 2. Lungs and Pleura: Coarse bilateral interstitial markings are redemonstrated. Lungs are hyperinflated with flattened diaphragms, stretch pulmonary markings consistent with COPD.No infiltrate or mass. No pneumothorax or pleural effusion. 3. Heart and mediastinum: Normal cardiomediastinal margin. 4. Bones: Thoracic degenerative spondylosis. Interval acute, fracture of the right surgical neck with slightly displaced fracture fragments. Diffuse osteopenia. Report Dictated on Electronically Signed By: Jaspreet Jeong Electronically Signed Date/Time: 05/21/2022 3:52 AM EST XR shoulder 2+ views right Final Result 1. Acute, transverse fracture through the right proximal surgical humeral neck. There is mild avulsion fracture of the right greater tuberosity. Diffuse osteopenia. Remote multiple mid thoracic compression fracture deformities, unchanged. Emphysema. Report Dictated on Electronically Signed By: Jaspreet Jeong Electronically Signed Date/Time: 05/21/2022 3:56 AM EST XR elbow 3+ views right Final Result Elbow joint effusion. Occult elbow osseous fracture is likely, but not visualized. Osteopenia. Follow-up right elbow radiograph in 7-10 days is recommended. Report Dictated on Electronically Signed By: Jaspreet Jeong Electronically Signed Date/Time: 05/21/2022 4:16 AM EST LABS: Labs Reviewed BASIC METABOLIC PANEL - Abnormal Result Value SODIUM 138 POTASSIUM 4.2 CHLORIDE 103 CARBON DIOXIDE 35 (*) UREA NITROGEN 15 CREATININE 0.78 GLUCOSE 116 (*) CALCIUM 9.1 ANION GAP 1 (*) eGFR 84.4 MAGNESIUM - Abnormal MAGNESIUM 2.6 (*) CBC WITH AUTO DIFFERENTIAL - Abnormal Auto WBC 12.1 (*) RBC 4.09 Hemoglobin 12.5 Hematocrit 39.0 MCV 95.4 MCH 30.7 MCHC 32.1 RDW 14.0 Platelets 339 MPV 7.5 nRBC 0.0 Neutrophils Relative 87.1 (*) Lymphocytes Relative 5.6 (*) Monocytes Relative 5.3 Eosinophils Relative 1.8 Basophils Relative 0.2 Neutrophils Absolute 10.6 (*) Lymphocytes Absolute 0.7 (*) Monocytes Absolute 0.6 Eosinophils Absolute 0.2 Basophils Absolute 0.0 All other labs were within normal range or not returned as of this dictation. EMERGENCY DEPARTMENT COURSE and DIFFERENTIAL DIAGNOSIS/MDM: Vitals: Vitals: 05/21/22 0237 BP: (!) 113/92 BP Location: Left arm Patient Position: Lying Pulse: 88 Resp: 20 Temp: 37.2 C (98.9 F) TempSrc: Oral SpO2: 98% Medications clonazePAM (KlonoPIN) tablet 0.5 mg (has no administration in time range) gabapentin (Neurontin) tablet 600 mg (has no administration in time range) albuterol 108 (90 Base) MCG/ACT inhaler 2 puff (has no administration in time range) atorvastatin (Lipitor) tablet 40 mg (has no administration in time range) buPROPion XL (Wellbutrin XL) 24 hr tablet 150 mg (has no administration in time range) fluticasone (Flonase) nasal spray 2 spray (has no administration in time range) montelukast (Singulair) tablet 10 mg (has no administration in time range) sertraline (Zoloft) tablet 200 mg (has no administration in time range) ipratropium-albuterol (Duo-Neb) 0.5-2.5 mg/3 mL nebulizer solution 3 mL (has no administration in time range) HYDROcodone-acetaminophen ([place]) 5-325 MG per tablet 1 tablet (has no administration in time range) sodium chloride 0.9% (NS) flush 5-40 mL (has no administration in time range) sodium chloride 0.9% (NS) flush 5-40 mL (has no administration in time range) sodium chloride 0.9 % infusion (has no administration in time range) acetaminophen (Tylenol) tablet 650 mg (has no administration in time range) Or acetaminophen (Tylenol) suppository 650 mg (has no administration in time range) ondansetron ODT (Zofran-ODT) disintegrating tablet 4 mg (has no administration in time range) Or ondansetron (Zofran) injection 4 mg (has no administration in time range) polyethylene glycol (PEG) 3350 (Miralax) packet 17 g (has no administration in time range) Influenza Vac A&B SA Adj quadrivalent (Fluad) vaccine 0.5 mL (has no administration in time range) sodium chloride 0.9 % infusion (has no administration in time range) melatonin tablet 6 mg (has no administration in time range) morphine sulfate (PF) injection 2 mg (has no administration in time range) lidocaine-EPINEPHrine (Xylocaine W/EPI) 1 %-1:439229 injection 10 mL (10 mL Infiltration Given 05/21/22339) morphine injection 2 mg (2 mg IntraVENous Given 05/21/22339) ED Course as of 05/21/22 0555 TueMay 21, 2022 0544 Patient on my review with no intracranial bleeds appreciated. Patient with no skull or facial bone fractures. Pelvic and chest x-rays with no acute findings. X-rays of the right elbow and right shoulder with humeral neck fractureWith medial displacement and impaction with a slightly avulsed fracture on the right total aspect of the humeral head. Elbow effusion appreciated. [PK] 0546 . [PK] 0554 EKG with sinus rhythm with a rate of 93. Patient with no ST elevations or depressions concerning for STEMI. EKG with left axis deviation. Intervals within normal limits. EKG with poor R wave progression in the lateral leads. EKG otherwise unchanged from previous. EKG interpreted by myself. [PK] ED Course User Index [PK] Martha Flores MD Diagnoses as of 05/21/22 0555 Fall, initial encounter Facial laceration, initial encounter Closed fracture of neck of right humerus, initial encounter Patient presenting for evaluation for a fall with trauma to the forehead and right shoulder and elbow. Presentation is concerning for traumatic injuries including fractures and dislocations. Patient with a laceration above the right eyebrow. Patient unlikely had a syncopal episode and states remembers everything and remembers missing had step prior to falling. Patient also unlikely with an acute stroke as a result given no focal neurologic deficits on exam. Patient is positive per [place] C-spine criteria. Given these findings work-up in the department with results is as noted above with radiology over reads that agrees with this finding. Patient with mild leukocytosis with a left shift which is likelyreactive, EKG as noted above, no electrolytes abnormalities, and no renal function impairment. Patient's laceration repaired in the emergency department as noted on the procedure note. Given these findings patient was placed in a sling. Patient is a fall risk. As a result discussed with Dr. Gresham who recommended medical admission for him to evaluate patient in the morning. Patient discussed with Dr. Dale who accepted patient for admission to her service. Discussed lab and imaging results with the patient. Discussed with the patient orthopedic surgery recommendations. Patient verbalized understanding of information given and agreed with admission to the hospital for evaluation. Was admitted in stable condition. PROCEDURES: Unless otherwise noted below, none Laceration Repair Performed by: Martha Flores MD Authorized by: Martha Flores MD Consent: Consent obtained: Verbal Consent given by: Patient Risks discussed: Pain, poor cosmetic result, need for additional repair and poor wound healing Anesthesia: Anesthesia method: None Laceration details: Location: Shoulder/arm Shoulder/arm location: R elbow Length (cm): 3 Depth (mm): 1 Pre-procedure details: Preparation: Patient was prepped and draped in usual sterile fashion Exploration: Hemostasis achieved with: Direct pressure Imaging outcome: foreign body not noted Wound exploration: wound explored through full range of motion and entire depth of wound visualized Wound extent: no areolar tissue violation noted Contaminated: yes Treatment: Area cleansed with: Saline Amount of cleaning: Extensive Irrigation solution: Sterile saline Irrigation volume: 150 Debridement: None Undermining: None Scar revision: no Skin repair: Repair method: Steri-Strips Number of Steri-Strips: 5 Approximation: Approximation: Close Post-procedure details: Dressing: Open (no dressing) Procedure completion: Tolerated well, no immediate complications Laceration Repair Performed by: Martha Flores MD Authorized by: Martha Flores MD Consent: Consent obtained: Verbal Consent given by: Patient Risks discussed: Infection, need for additional repair, poor cosmetic result and poor wound healing [place] protocol: Patient identity confirmed: Verbally with patient Anesthesia: Anesthesia method: None Laceration details: Location: Hand Hand location: L hand, dorsum Length (cm): 2 Depth (mm): 1 Pre-procedure details: Preparation: Patient was prepped and draped in usual sterile fashion Exploration: Limited defect created (wound extended): no Hemostasis achieved with: Direct pressure Imaging outcome: foreign body not noted Wound exploration: wound explored through full range of motion and entire depth of wound visualized Treatment: Area cleansed with: Saline Amount of cleaning: Extensive Irrigation solution: Sterile saline Irrigation volume: 100 Irrigation method: Pressure wash Debridement: None Undermining: None Scar revision: no Skin repair: Repair method: Steri-Strips Number of Steri-Strips: 3 Approximation: Approximation: Close Post-procedure details: Dressing: Open (no dressing) Procedure completion: Tolerated well, no immediate complications Laceration Repair Performed by: Martha Flores MD Authorized by: Martha Flores MD Consent: Consent obtained: Verbal Consent given by: Patient Risks discussed: Infection, pain, poor cosmetic result, poor wound healing and need for additional repair [place] protocol: Patient identity confirmed: Verbally with patient Anesthesia: Anesthesia method: Local infiltration Local anesthetic: Lidocaine 1% WITH epi Laceration details: Location: Face Face location: R eyebrow Length (cm): 2 Depth (mm): 2 Pre-procedure details: Preparation: Patient was prepped and draped in usual sterile fashion Exploration: Hemostasis achieved with: Direct pressure Imaging obtained comment: CT Imaging outcome: foreign body not noted Wound exploration: wound explored through full range of motion and entire depth of wound visualized Wound extent: areolar tissue violated Wound extent: no fascia violation noted Contaminated: yes Treatment: Area cleansed with: Saline Amount of cleaning: Extensive Irrigation solution: Sterile saline Irrigation volume: 250 Irrigation method: Pressure wash Debridement: None Undermining: None Scar revision: no Skin repair: Repair method: Sutures Suture size: 5-0 Suture material: Chromic gut Suture technique: Simple interrupted Number of sutures: 4 Approximation: Approximation: Close Post-procedure details: Dressing: Open (no dressing) Procedure completion: Tolerated well, no immediate complications FINAL IMPRESSION 1. Fall, initial encounter 2. Facial laceration, initial encounter 3. Closed fracture of neck of right humerus, initial encounter DISPOSITION Admit 05/21/2022 05:12:55 AM PATIENT REFERRED TO: No follow-up provider specified. DISCHARGE MEDICATIONS: New Prescriptions No medications on file (Comment: Please note this report has been produced using speech recognition software and may contain errors related to that system including errors in grammar, punctuation, and spelling, as well as words and phrases that may be inappropriate. If there are any questions or concerns please feel freeto contact the dictating provider for clarification.) Martha Flores MD (electronically signed) Emergency Medicine Provider Martha Flores MD 05/21/22 0556 * Trell Muller RN - 05/21/2022 2:26 AM EST From home via EMS adrian c/o right arm pain and right orbit laceration s/p mechanical fall d/t poor lighting. Denies LOC, no thinners * Floridalma Gonzalez RN - 05/21/2022 2:26 AM EST Bed: 19 Expected date: 05/21/22 Expected time: Means of arrival: Comments: Jean Gonzalez RN 05/21/22 0227 documented in this [place]03-03-2023 History and physical note* Dianne Da Silva Suyapa - 05/21/2022 5:38 AM EST Images from the original note were not included. Attending History and Physical Admit Date: 05/21/2022 PCP: HERMINIA CASE MD CHIEF COMPLAINT: fall Reason for Admission: right shoulder frcature and elbow fracture History Obtained From: patient HISTORY OF PRESENT ILLNESS: Gonzalo is a 66 y.o. female with past medical history of cervical cancer COPD depression who presentswith chief complaint listed above. Patient presents to the Ed after a fall . She reports right arm pain and right orbit laceration . She states that at 0100 am she wanted to let her dog go out to potty. She states that due to poor lighting she missed a step and fell face down onto the floor She states that she had no LOC chest pain palpitations She reports no shortness of breath abdominal pain nausea vomiting .. In the ED patient was hemodynamically stable Ct cervical spine neg CT head neg . XRpelvis no fracture CXR no infiltrate or mass XR right elbow occult right osseous fracture XR right shoulder humeral neck and avulsion fracture of greater tuberosity . Lab data reveal sodium 138 potassium 4.2 BUN 15 Scr 0.78 WBC 12.1 HGB 12.5 PLT 339 Will admit for further evaluation and management. Past Medical History: Past Medical History: Diagnosis Date Abnormal stress test Allergic rhinitis Arthritis Asthma Bronchitis Cancer (CMS/HCC) skin Cervical cancer (CMS/HCC) Chest pain COPD (chronic obstructive pulmonary disease) (CMS/HCC) USE OXYGEN 3 L AT NIGHT DDD (degenerative disc disease), cervical Defect, retina, with detachment right DJD (degenerative joint disease), lumbar Emphysema lung (CMS/HCC) Former smoker Hematuria SCHEDULED FOR THE PROCEDURE /SURGERY ON 02/11/2017 Hypokalemia Lung nodules Osteoporosis Palpitations Pneumonia Recurrent major depression ([facility]/HCC) Sciatica Thoracic compression fracture ([facility]/HCC) Vitamin D deficiency Past Surgical History: Past Surgical History: Procedure Laterality Date CYSTOSCOPY 01/12/2017 OFFICE PROCEDURE CYSTOSCOPY 02/11/2017 C&P bladder biopsy EYE SURGERY detached retina 1994 HYSTERECTOMY 11/06/2019 ABDOMINAL RADICAL HYSTERECTOMY WITH BSO AND PELVIC LYMPH; DR. ZIYAD MENENDEZ [facility] OTHER SURGICAL HISTORY Left 12/19/2019 Med Port POWER Regular Size TUBAL LIGATION 1992 Social History: Social History Socioeconomic History Marital status: Spouse name: Not on file Number of children: Not on file Years of education: Not on file Highest education level: Not on file Occupational History Not on file Tobacco Use Smoking status: Former Packs/day: 1.50 Types: Cigarettes Quit date: 09/20/2011 Years since quittin.6 Smokeless tobacco: Never Tobacco comments: Quit smoking: pt states she quit 4-5 years ago Substance and Sexual Activity Alcohol use: Yes Alcohol/week: 0.0 standard drinks Drug use: No Sexual activity: Not on file Other Topics Concern Not on file Social History Narrative Not on file Social Determinants of Health Financial Resource Strain: Not on file Food Insecurity: Not on file Transportation Needs: Not on file Physical Activity: Not on file Stress: Not on file Social Connections: Not on file Intimate Partner Violence: Not on file Housing Stability: Not on file Family History: Family History Problem Relation Name Age of Onset Colon cancer Neg Hx Ovarian cancer Neg Hx Cancer Mother breast- to liver Cancer Sister breast Cancer Father lung to brain No Known Problems Brother Uterine cancer Neg Hx Medications Prior to Admission: No current facility-administered medications on file prior to encounter. Current Outpatient Medications on File Prior to Encounter Medication Sig Dispense Refill albuterol 108 (90 Base) MCG/ACT inhaler Inhale 2 puffs every 4 hours as needed. alendronate (Fosamax) 70 MG tablet Take 70 mg by mouth once a week. aspirin 81 MG EC tablet Take 81 mg by mouth. atorvastatin (Lipitor) 40 MG tablet Take 1 tablet by mouth Nightly. buPROPion XL (Wellbutrin XL) 150 MG 24 hr tablet Take 150 mg by mouth in the morning. clonazePAM (KlonoPIN) 0.5 MG tablet Take 1 tablet by mouth Nightly. diphenhydrAMINE (Sominex) 25 MG tablet Take 25 mg by mouth. doxycycline (Vibramycin) 100 MG capsule fluticasone (Flonase) 50 MCG/ACT nasal spray 2 sprays in the morning. gabapentin (Neurontin) 600 MG tablet Take 1 tablet by mouth daily. montelukast (Singulair) 10 MG tablet Take 10 mg by mouth Nightly. potassium chloride CR (Klor-Con M20) 20 MEQ ER tablet Take 2 tablets by mouth daily. sertraline (Zoloft) 100 MG tablet Take 200 mg by mouth in the morning. tiotropium (Spiriva Respimat) 2.5 MCG/ACT inhaler Inhale 2 puffs in the morning. Allergies: Allergies Allergen Reactions Pollen Extract Unknown REVIEW OF SYSTEMS: Constitutional: Negative for fever, chills, activity change and unexpected weight change. HEENT: Negative for congestion, postnasal drip and sneezing. Eyes: Negative for itching and visual disturbance. Respiratory: Negative for apnea, cough, choking, chest tightness, shortness of breath, wheezing andstridor. Cardiovascular: Negative for chest pain. Gastrointestinal: Negative for nausea, vomiting, abdominal pain, diarrhea and blood in stool. Genitourinary: Negative for dysuria, frequency and flank pain. Musculoskeletal: Negative for myalgias and +++joint swelling. Skin: Negative for rash. Neurological: Negative for dizziness, tremors, seizures, syncope, facial asymmetry, speech difficulty, weakness, numbness and headaches. Hematological: Negative for adenopathy. Psychiatric/Behavioral: Negative for suicidal ideas, behavioral problems, self- injury and dysphoricmood. Vitals: BP (!) 113/92 (BP Location: Left arm, Patient Position: Lying) Pulse 88 Temp 37.2 C (98.9 F) (Oral) Resp 20 SpO2 98% BMI Classification: Normal Weight (BMI 18.5-24.9) Pulse Ox: SpO2 Av % Min: 98 % Max: 98 % Supplemental O2: O2 Flow Rate (L/min): 4 L/min PHYSICAL EXAM: General appearance: No apparent distress, appears stated age and cooperative with exam. HEENT: Normal cephalic, atraumatic without obvious deformity. Pupils equal, round, and reactive to light. Extra ocular muscles intact. Conjunctivae/corneas clear. Neck: Supple, with full range of motion. No jugular venous distention. Trachea midline. No lymphadenopathy. Respiratory: Normal respiratory effort. Clear to auscultation, bilaterally without Rales/Wheezes/Rhonchi. Cardiovascular: Regular rate and rhythm with normal S1/S2 without murmurs, rubs or gallops. Abdomen: Soft, non-tender, non-distended with normal bowel sounds. No rebound or guarding. Musculoskeletal: right shoulder in sling with tenderness to palpation as well as right elbow right elbow swollen , wrist with full ROM intact strength of right and left hand No clubbing, cyanosis or edema bilaterally. +2 peripheral pulses in all extremities. Skin: Skin color, texture, turgor normal. No rashes or lesions. Neurologic: Neurovascularly intact without any focal sensory/motor deficits. Cranial nerves: II-XIIintact, grossly non-focal. Psychiatric: Alert and oriented, thought content appropriate, normal insight. DATA: CBC: Recent Labs 05/21/22 0526 WBC 12.1* RBC 4.09 HGB 12.5 HCT 39.0 MCV 95.4 RDW 14.0 PLT 339 BMP:No results for input(s): NA, K, CL, CO2, BUN, CREATININE, GLUCOSE, CALCIUM, ANIONGAP in the last 72 hours. LIVER PROFILE:No results for input(s): AST, ALT, BILITOT, ALKPHOS, PROT in the last 72 hours. No lab exists for component: LABALBU PT/INR: No results for input(s): PROTIME, INR in the last 72 hours. CARDIAC ENZYMES: No results for input(s): TROPONINI in the last 72 hours. Procalcitonin: No results found for: PROCAL Urine Culture: No results found for this or any previous visit. COVID-19 PCR: No results for input(s): COVID19 in the last 72 hours. I reviewed: [x] laboratory results [x] radiographic results At the time of today's encounter. Pt was advised of the results. No fracture or subluxation of the cervical vertebrae. 2. 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 3. Diffuse osteopenia. 4. Emphysema. IMPRESSION: No acute intracranial process. Minimal right periorbital soft tissue swelling. Comparison: None. Findings: Bilateral hip joints are maintained. There is no evidence for fracture or dislocation. Inferior lumbar degenerative spondylosis. No diastases of the SI joints or pubic symphysis. Sacrum is obscured by overlying bowel gas. Osseous structures are demineralized. No bone lesion or soft tissueabnormality is identified. IMPRESSION: No acute traumatic osseous abnormality. Osteopenia. 1. Lines/ tubes/ devices: Left IJ MediPort catheter tip terminates in the mid SVC, unchanged. 2. Lungs and Pleura: Coarse bilateral interstitial markings are redemonstrated. Lungs are hyperinflated with flattened diaphragms, stretch pulmonary markings consistent with COPD.No infiltrate or mass. No pneumothorax or pleural effusion. 3. Heart and mediastinum: Normal cardiomediastinal margin. 4. Bones: Thoracic degenerative spondylosis. Interval acute, fracture of the right surgical neck with slightly displaced fracture fragments. Diffuse osteopenia. IMPRESSION: Elbow joint effusion. Occult elbow osseous fracture is likely, but not visualized. Osteopenia. Follow-up right elbow radiograph in 7-10 days is recommended. IMPRESSION: 1. Acute, transverse fracture through the right proximal surgical humeral neck. There is mild avulsion fracture of the right greater tuberosity. Diffuse osteopenia. Remote multiple mid thoracic compression fracture deformities, unchanged. Assessment Data: (CAT1) CXR reviewed & showed no infiltrate as interpreted by me. (LOW: 2x CAT1 or independent historian MOD: 3x CAT1 or 1x CAT3 EXTENSIVE: 3x CAT1 and 1x CAT3) Acute, acute on chronic, unstable/uncontrolled chronic problems/diagnoses: Mechanical Fall : patient fell while taking her dogs out. She had no LOC XR pelvis no fracture CT head neg CT cervical spine neg XR right shoulder reveals surgical transverse humeral neck fracture XRright elbow reveals possible occult osseous fracture. Admit inpatient vitals telemetry pain controlNPO Ortho consult, patient has a 3.9 % 30 day risk of TX or cardiac arrest class 1 risk and is cleared for surgery Right orbital laceration ; repaired in ED Thoracic compression fractures as seen on Ct cervical spine , patient takes Fosamax Stable chronic problems affecting care, new non-acute diagnoses: History of squamous cell cancer or cervix : Patient is s/p radical hysterectomy, BSO, LND on 11/21/2019 followed by combined chemoradiotherapy. This completed on February 2020 COPD : Cw/ bronchodilators Depression/anxiety : Zoloft Wellbutrin Klonopin Hyperlipidemia ; Lipitor Chronic back pain : gabapentin Plan As a result of the above findings & factors, the following mgmt was pursued: - - am labs, replace lytes prn - PT/OT/CM/SW - delirium precautions: increase activity - DVT prophylaxis: encourage ambulation Complexity: Acute illness with systemic symptoms (MOD). Risk: Drug therapy requiring intensive monitoring (HIGH). Advance Directive: Full Code Anticipated Discharge - Date - 05/22/2022 - Location - Home - Pending the following - Right shoulder fracture Total time spent (which include face to face and non face to face encounters) : greater than 30 minutes Extended Emergency Contact Information Primary Emergency Contact: Karishma Cedillo Relation: Child Secondary Emergency Contact: YosiJace Hollis Relation: Child Dianne Dale Division of Hospitalist Medicine Inpatient Medical Services/[facility] [place] Work Phone: [phone] History and physical note* Dianne Dale - 05/21/2022 5:38 AM EST Images from the original note were not included. Attending History and Physical Admit Date: 05/21/2022 PCP: HERMINIA CASE MD CHIEF COMPLAINT: fall Reason for Admission: right shoulder frcature and elbow fracture History Obtained From: patient HISTORY OF PRESENT ILLNESS: Gonzalo is a 66 y.o. female with past medical history of cervical cancer COPD depression who presentswith chief complaint listed above. Patient presents to the Ed after a fall . She reports right arm pain and right orbit laceration . She states that at 0100 am she wanted to let her dog go out to potty. She states that due to poor lighting she missed a step and fell face down onto the floor She states that she had no LOC chest pain palpitations She reports no shortness of breath abdominal pain nausea vomiting .. In the ED patient was hemodynamically stable Ct cervical spine neg CT head neg . XRpelvis no fracture CXR no infiltrate or mass XR right elbow occult right osseous fracture XR right shoulder humeral neck and avulsion fracture of greater tuberosity . Lab data reveal sodium 138 potassium 4.2 BUN 15 Scr 0.78 WBC 12.1 HGB 12.5 PLT 339 Will admit for further evaluation and management. Past Medical History: Past Medical History: Diagnosis Date Abnormal stress test Allergic rhinitis Arthritis Asthma Bronchitis Cancer (CMS/HCC) skin Cervical cancer (CMS/HCC) Chest pain COPD (chronic obstructive pulmonary disease) (CMS/HCC) USE OXYGEN 3 L AT NIGHT DDD (degenerative disc disease), cervical Defect, retina, with detachment right DJD (degenerative joint disease), lumbar Emphysema lung (CMS/HCC) Former smoker Hematuria SCHEDULED FOR THE PROCEDURE /SURGERY ON 02/11/2017 Hypokalemia Lung nodules Osteoporosis Palpitations Pneumonia Recurrent major depression (CMS/HCC) Sciatica Thoracic compression fracture (CMS/HCC) Vitamin D deficiency Past Surgical History: Past Surgical History: Procedure Laterality Date CYSTOSCOPY 01/12/2017 OFFICE PROCEDURE CYSTOSCOPY 02/11/2017 C&P bladder biopsy EYE SURGERY detached retina 1994 HYSTERECTOMY 11/06/2019 ABDOMINAL RADICAL HYSTERECTOMY WITH BSO AND PELVIC LYMPH; [facility] OTHER SURGICAL HISTORY Left 12/19/2019 Med Port POWER Regular Size TUBAL LIGATION 1992 Social History: Social History Socioeconomic History Marital status: Spouse name: Not on file Number of children: Not on file Years of education: Not on file Highest education level: Not on file Occupational History Not on file Tobacco Use Smoking status: Former Packs/day: 1.50 Types: Cigarettes Quit date: 09/20/2011 Years since quittin.6 Smokeless tobacco: Never Tobacco comments: Quit smoking: pt states she quit 4-5 years ago Substance and Sexual Activity Alcohol use: Yes Alcohol/week: 0.0 standard drinks Drug use: No Sexual activity: Not on file Other Topics Concern Not on file Social History Narrative Not on file Social Determinants of Health Financial Resource Strain: Not on file Food Insecurity: Not on file Transportation Needs: Not on file Physical Activity: Not on file Stress: Not on file Social Connections: Not on file Intimate Partner Violence: Not on file Housing Stability: Not on file Family History: Family History Problem Relation Name Age of Onset Colon cancer Neg Hx Ovarian cancer Neg Hx Cancer Mother breast- to liver Cancer Sister breast Cancer Father lung to brain No Known Problems Brother Uterine cancer Neg Hx Medications Prior to Admission: No current facility-administered medications on file prior to encounter. Current Outpatient Medications on File Prior to Encounter Medication Sig Dispense Refill albuterol 108 (90 Base) MCG/ACT inhaler Inhale 2 puffs every 4 hours as needed. alendronate (Fosamax) 70 MG tablet Take 70 mg by mouth once a week. aspirin 81 MG EC tablet Take 81 mg by mouth. atorvastatin (Lipitor) 40 MG tablet Take 1 tablet by mouth Nightly. buPROPion XL (Wellbutrin XL) 150 MG 24 hr tablet Take 150 mg by mouth in the morning. clonazePAM (KlonoPIN) 0.5 MG tablet Take 1 tablet by mouth Nightly. diphenhydrAMINE (Sominex) 25 MG tablet Take 25 mg by mouth. doxycycline (Vibramycin) 100 MG capsule fluticasone (Flonase) 50 MCG/ACT nasal spray 2 sprays in the morning. gabapentin (Neurontin) 600 MG tablet Take 1 tablet by mouth daily. montelukast (Singulair) 10 MG tablet Take 10 mg by mouth Nightly. potassium chloride CR (Klor-Con M20) 20 MEQ ER tablet Take 2 tablets by mouth daily. sertraline (Zoloft) 100 MG tablet Take 200 mg by mouth in the morning. tiotropium (Spiriva Respimat) 2.5 MCG/ACT inhaler Inhale 2 puffs in the morning. Allergies: Allergies Allergen Reactions Pollen Extract Unknown REVIEW OF SYSTEMS: Constitutional: Negative for fever, chills, activity change and unexpected weight change. HEENT: Negative for congestion, postnasal drip and sneezing. Eyes: Negative for itching and visual disturbance. Respiratory: Negative for apnea, cough, choking, chest tightness, shortness of breath, wheezing andstridor. Cardiovascular: Negative for chest pain. Gastrointestinal: Negative for nausea, vomiting, abdominal pain, diarrhea and blood in stool. Genitourinary: Negative for dysuria, frequency and flank pain. Musculoskeletal: Negative for myalgias and +++joint swelling. Skin: Negative for rash. Neurological: Negative for dizziness, tremors, seizures, syncope, facial asymmetry, speech difficulty, weakness, numbness and headaches. Hematological: Negative for adenopathy. Psychiatric/Behavioral: Negative for suicidal ideas, behavioral problems, self- injury and dysphoricmood. Vitals: BP (!) 113/92 (BP Location: Left arm, Patient Position: Lying) Pulse 88 Temp 37.2 C (98.9 F) (Oral) Resp 20 SpO2 98% BMI Classification: Normal Weight (BMI 18.5-24.9) Pulse Ox: SpO2 Av % Min: 98 % Max: 98 % Supplemental O2: O2 Flow Rate (L/min): 4 L/min PHYSICAL EXAM: General appearance: No apparent distress, appears stated age and cooperative with exam. HEENT: Normal cephalic, atraumatic without obvious deformity. Pupils equal, round, and reactive to light. Extra ocular muscles intact. Conjunctivae/corneas clear. Neck: Supple, with full range of motion. No jugular venous distention. Trachea midline. No lymphadenopathy. Respiratory: Normal respiratory effort. Clear to auscultation, bilaterally without Rales/Wheezes/Rhonchi. Cardiovascular: Regular rate and rhythm with normal S1/S2 without murmurs, rubs or gallops. Abdomen: Soft, non-tender, non-distended with normal bowel sounds. No rebound or guarding. Musculoskeletal: right shoulder in sling with tenderness to palpation as well as right elbow right elbow swollen , wrist with full ROM intact strength of right and left hand No clubbing, cyanosis or edema bilaterally. +2 peripheral pulses in all extremities. Skin: Skin color, texture, turgor normal. No rashes or lesions. Neurologic: Neurovascularly intact without any focal sensory/motor deficits. Cranial nerves: II-XIIintact, grossly non-focal. Psychiatric: Alert and oriented, thought content appropriate, normal insight. DATA: CBC: Recent Labs 05/21/22 0526 WBC 12.1* RBC 4.09 HGB 12.5 HCT 39.0 MCV 95.4 RDW 14.0 PLT 339 BMP:No results for input(s): NA, K, CL, CO2, BUN, CREATININE, GLUCOSE, CALCIUM, ANIONGAP in the last 72 hours. LIVER PROFILE:No results for input(s): AST, ALT, BILITOT, ALKPHOS, PROT in the last 72 hours. No lab exists for component: LABALBU PT/INR: No results for input(s): PROTIME, INR in the last 72 hours. CARDIAC ENZYMES: No results for input(s): TROPONINI in the last 72 hours. Procalcitonin: No results found for: PROCAL Urine Culture: No results found for this or any previous visit. COVID-19 PCR: No results for input(s): COVID19 in the last 72 hours. I reviewed: [x] laboratory results [x] radiographic results At the time of today's encounter. Pt was advised of the results. No fracture or subluxation of the cervical vertebrae. 2. 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 3. Diffuse osteopenia. 4. Emphysema. IMPRESSION: No acute intracranial process. Minimal right periorbital soft tissue swelling. Comparison: None. Findings: Bilateral hip joints are maintained. There is no evidence for fracture or dislocation. Inferior lumbar degenerative spondylosis. No diastases of the SI joints or pubic symphysis. Sacrum is obscured by overlying bowel gas. Osseous structures are demineralized. No bone lesion or soft tissueabnormality is identified. IMPRESSION: No acute traumatic osseous abnormality. Osteopenia. 1. Lines/ tubes/ devices: Left IJ MediPort catheter tip terminates in the mid SVC, unchanged. 2. Lungs and Pleura: Coarse bilateral interstitial markings are redemonstrated. Lungs are hyperinflated with flattened diaphragms, stretch pulmonary markings consistent with COPD.No infiltrate or mass. No pneumothorax or pleural effusion. 3. Heart and mediastinum: Normal cardiomediastinal margin. 4. Bones: Thoracic degenerative spondylosis. Interval acute, fracture of the right surgical neck with slightly displaced fracture fragments. Diffuse osteopenia. IMPRESSION: Elbow joint effusion. Occult elbow osseous fracture is likely, but not visualized. Osteopenia. Follow-up right elbow radiograph in 7-10 days is recommended. IMPRESSION: 1. Acute, transverse fracture through the right proximal surgical humeral neck. There is mild avulsion fracture of the right greater tuberosity. Diffuse osteopenia. Remote multiple mid thoracic compression fracture deformities, unchanged. Assessment Data: (CAT1) CXR reviewed & showed no infiltrate as interpreted by me. (LOW: 2x CAT1 or independent historian MOD: 3x CAT1 or 1x CAT3 EXTENSIVE: 3x CAT1 and 1x CAT3) Acute, acute on chronic, unstable/uncontrolled chronic problems/diagnoses: Mechanical Fall : patient fell while taking her dogs out. She had no LOC XR pelvis no fracture CT head neg CT cervical spine neg XR right shoulder reveals surgical transverse humeral neck fracture XRright elbow reveals possible occult osseous fracture. Admit inpatient vitals telemetry pain controlNPO Ortho consult, patient has a 3.9 % 30 day risk of TX or cardiac arrest class 1 risk and is cleared for surgery Right orbital laceration ; repaired in ED Thoracic compression fractures as seen on Ct cervical spine , patient takes Fosamax Stable chronic problems affecting care, new non-acute diagnoses: History of squamous cell cancer or cervix : Patient is s/p radical hysterectomy, BSO, LND on 11/21/2019 followed by combined chemoradiotherapy. This completed on February 2020 COPD : Cw/ bronchodilators Depression/anxiety : Zoloft Wellbutrin Klonopin Hyperlipidemia ; Lipitor Chronic back pain : gabapentin Plan As a result of the above findings & factors, the following mgmt was pursued: - - am labs, replace lytes prn - PT/OT/CM/SW - delirium precautions: increase activity - DVT prophylaxis: encourage ambulation Complexity: Acute illness with systemic symptoms (MOD). Risk: Drug therapy requiring intensive monitoring (HIGH). Advance Directive: Full Code Anticipated Discharge - Date - 05/22/2022 - Location - Home - Pending the following - Right shoulder fracture Total time spent (which include face to face and non face to face encounters) : greater than 30 minutes Extended Emergency Contact Information Primary Emergency Contact: Karishma Cedillo Relation: Child Secondary Emergency Contact: Jace Deluca Relation: Child Dianne [place] Division of Hospitalist Medicine Inpatient Medical Services/[facility] documented in this [place]03-03-2023 Emergency department Note* Floridalma Gonzalez RN - 05/21/2022 2:26 AM EST Bed: 19 Expected date: 05/21/22 Expected time: Means of arrival: Comments: Jean Gonzalez RN 05/21/22 0227 [facility]03-03-2023 Emergency department Triage note* Trell Muller RN - 05/21/2022 2:26 AM EST From home via EMS adrian c/o right arm pain and right orbit laceration s/p mechanical fall d/t poor lighting. Denies LOC, no thinners [facility]03-03-2023 Physician Emergency department Note* Martha Flores MD - 05/21/2022 2:26 AM ESTAssociated Order(s): Laceration Repair; Laceration Repair; Laceration Repair Images from the original note were not included. EMERGENCY DEPARTMENT ENCOUNTER Pt Name: Gonzalo Deluca Birthdate 1955 Date of evaluation: 05/21/2022 ED Provider: Martha Flores MD CHIEF COMPLAINT Chief Complaint Patient presents with Fall Arm Injury Laceration HISTORY OF PRESENT ILLNESS (Location/Symptom, Timing/Onset, Context/Setting, Quality, Duration, Modifying Factors, Severity) Note limiting factors. I wore appropriate PPE for the entirety of this encounter. HPI Gonzalo Deluca is a 66 y.o. female with a past medical history significant for cancer, COPD, degenerative disc disease, and depression who presents to the emergency department for evaluation after a fall. Patient states was taking the dogs out when she missed her step and fell. She states she landed onto her right shoulder. States she states since then she was not able to move her right elbow or shoulder due to pain. Patient also endorses hitting her head during the incident. She denies any chest pain, shortness of breath, abdominal pain or nausea and vomiting. Patient also denies any pelvic pain or inability to ambulate. She states however given the amount of pain that she had in the blood coming from her head she did call EMS for transport to the hospital. Nursing Notes were reviewed. Limitations to history: None Outside historians: None REVIEW OF SYSTEMS Review of Systems Constitutional: Negative for chills and fever. HENT: Negative for ear pain and sore throat. Eyes: Negative for pain and visual disturbance. Respiratory: Negative for cough and shortness of breath. Cardiovascular: Negative for chest pain and palpitations. Gastrointestinal: Negative for abdominal pain and vomiting. Genitourinary: Negative for dysuria and hematuria. Musculoskeletal: Positive for arthralgias (Right shoulder and elbow). Negative for back pain. Skin: Negative for color change and rash. Neurological: Negative for seizures and syncope. Psychiatric/Behavioral: Negative for confusion. All other systems reviewed and are negative. PAST MEDICAL HISTORY Past Medical History: Diagnosis Date Abnormal stress test Allergic rhinitis Arthritis Asthma Bronchitis Cancer (CMS/HCC) skin Cervical cancer ([facility]/HCC) Chest pain COPD (chronic obstructive pulmonary disease) ([facility]) USE OXYGEN 3 L AT NIGHT DDD (degenerative disc disease), cervical Defect, retina, with detachment right DJD (degenerative joint disease), lumbar Emphysema lung ([facility]/HCC) Former smoker Hematuria SCHEDULED FOR THE PROCEDURE /SURGERY ON 02/11/2017 Hypokalemia Lung nodules Osteoporosis Palpitations Pneumonia Recurrent major depression ([facility]/HCC) Sciatica Thoracic compression fracture ([facility]) Vitamin D deficiency SURGICAL HISTORY Past Surgical History: Procedure Laterality Date CYSTOSCOPY 01/12/2017 OFFICE PROCEDURE CYSTOSCOPY 02/11/2017 C&P bladder biopsy EYE SURGERY detached retina 1994 HYSTERECTOMY 11/06/2019 ABDOMINAL RADICAL HYSTERECTOMY WITH BSO AND PELVIC LYMPH; DR. ZIYAD MEENNDEZ [facility] OTHER SURGICAL HISTORY Left 12/19/2019 Med Port POWER Regular Size TUBAL LIGATION 1992 CURRENT MEDICATIONS Previous Medications ALBUTEROL 108 (90 BASE) MCG/ACT INHALER Inhale 2 puffs every 4 hours as needed. ALENDRONATE (FOSAMAX) 70 MG TABLET Take 70 mg by mouth once a week. ASPIRIN 81 MG EC TABLET Take 81 mg by mouth. ATORVASTATIN (LIPITOR) 40 MG TABLET Take 1 tablet by mouth Nightly. BUPROPION XL (WELLBUTRIN XL) 150 MG 24 HR TABLET Take 150 mg by mouth in the morning. CLONAZEPAM (KLONOPIN) 0.5 MG TABLET Take 1 tablet by mouth Nightly. DIPHENHYDRAMINE (SOMINEX) 25 MG TABLET Take 25 mg by mouth. DOXYCYCLINE (VIBRAMYCIN) 100 MG CAPSULE FLUTICASONE (FLONASE) 50 MCG/ACT NASAL SPRAY 2 sprays in the morning. GABAPENTIN (NEURONTIN) 600 MG TABLET Take 1 tablet by mouth daily. MONTELUKAST (SINGULAIR) 10 MG TABLET Take 10 mg by mouth Nightly. POTASSIUM CHLORIDE CR (KLOR-CON M20) 20 MEQ ER TABLET Take 2 tablets by mouth daily. SERTRALINE (ZOLOFT) 100 MG TABLET Take 200 mg by mouth in the morning. TIOTROPIUM (SPIRIVA RESPIMAT) 2.5 MCG/ACT INHALER Inhale 2 puffs in the morning. ALLERGIES Pollen extract FAMILY HISTORY Family History Problem Relation Name Age of Onset Colon cancer Neg Hx Ovarian cancer Neg Hx Cancer Mother breast- to liver Cancer Sister breast Cancer Father lung to brain No Known Problems Brother Uterine cancer Neg Hx SOCIAL HISTORY Social History Socioeconomic History Marital status: Tobacco Use Smoking status: Former Packs/day: 1.50 Types: Cigarettes Quit date: 09/20/2011 Years since quittin.6 Smokeless tobacco: Never Tobacco comments: Quit smoking: pt states she quit 4-5 years ago Substance and Sexual Activity Alcohol use: Yes Alcohol/week: 0.0 standard drinks Drug use: No SCREENINGS PHYSICAL EXAM ED Triage Vitals [05/21/22 0237] Temp Heart Rate Resp BP 37.2 C (98.9 F) 88 20 (!) 113/92 SpO2 Temp Source Heart Rate Source Patient Position 98 % Oral Monitor Lying BP Location FiO2 (%) Left arm -- Physical Exam Vitals and nursing note reviewed. Constitutional: General: She is not in acute distress. Appearance: She is well-developed. HENT: Head: Normocephalic. Laceration (Laceration at the marked site.) present. Right Ear: Tympanic membrane and external ear normal. Left Ear: Tympanic membrane and external ear normal. Mouth/Throat: Mouth: Mucous membranes are moist. Pharynx: Oropharynx is clear. Eyes: Extraocular Movements: Extraocular movements intact. Conjunctiva/sclera: Conjunctivae normal. Pupils: Pupils are equal, round, and reactive to light. Cardiovascular: Rate and Rhythm: Normal rate and regular rhythm. Heart sounds: No murmur heard. Pulmonary: Effort: Pulmonary effort is normal. No respiratory distress. Breath sounds: Normal breath sounds. Abdominal: Palpations: Abdomen is soft. Tenderness: There is no abdominal tenderness. Musculoskeletal: General: Tenderness (Right shoulder with tenderness to palpation as well as right elbow. Patient unable to range right elbow due to pain. Wrist with full range of motion. Cap refill 2 seconds on the fingers. Patient with intact strength of the hand. .) present. No swelling. Cervical back: Neck supple. No tenderness. Lymphadenopathy: Cervical: No cervical adenopathy. Skin: General: Skin is warm and dry. Capillary Refill: Capillary refill takes less than 2 seconds. Neurological: Mental Status: She is alert. Psychiatric: Mood and Affect: Mood normal. DIAGNOSTIC RESULTS RADIOLOGY (Per Emergency Physician): Interpretation per the Radiologist below, if available at the time of this note: CT cervical spine wo IV contrast Final Result 1. No fracture or subluxation of the cervical vertebrae. 2. 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 3. Diffuse osteopenia. 4. Emphysema. Report Dictated on Electronically Signed By: Jaspreet Jeong Electronically Signed Date/Time: 05/21/2022 4:[address] head wo IV contrast Final Result No acute intracranial process. Minimal right periorbital soft tissue swelling. Report Dictated on Electronically Signed By: Jaspreet Jeong Electronically Signed Date/Time: 05/21/2022 4:38 AM EST XR pelvis 1 or 2 views Final Result No acute traumatic osseous abnormality. Osteopenia. Report Dictated on Electronically Signed By: Jaspreet Jeong Electronically Signed Date/Time: 05/21/2022 4:17 AM EST XR chest 1 view Final Result 1. Lines/ tubes/ devices: Left IJ MediPort catheter tip terminates in the mid SVC, unchanged. 2. Lungs and Pleura: Coarse bilateral interstitial markings are redemonstrated. Lungs are hyperinflated with flattened diaphragms, stretch pulmonary markings consistent with COPD.No infiltrate or mass. No pneumothorax or pleural effusion. 3. Heart and mediastinum: Normal cardiomediastinal margin. 4. Bones: Thoracic degenerative spondylosis. Interval acute, fracture of the right surgical neck with slightly displaced fracture fragments. Diffuse osteopenia. Report Dictated on Electronically Signed By: Jaspreet Jeong Electronically Signed Date/Time: 05/21/2022 3:52 AM EST XR shoulder 2+ views right Final Result 1. Acute, transverse fracture through the right proximal surgical humeral neck. There is mild avulsion fracture of the right greater tuberosity. Diffuse osteopenia. Remote multiple mid thoracic compression fracture deformities, unchanged. Emphysema. Report Dictated on Electronically Signed By: Jaspreet Jeong Electronically Signed Date/Time: 05/21/2022 3:56 AM EST XR elbow 3+ views right Final Result Elbow joint effusion. Occult elbow osseous fracture is likely, but not visualized. Osteopenia. Follow-up right elbow radiograph in 7-10 days is recommended. Report Dictated on Electronically Signed By: Jaspreet Jeong Electronically Signed Date/Time: 05/21/2022 4:16 AM EST LABS: Labs Reviewed BASIC METABOLIC PANEL - Abnormal Result Value SODIUM 138 POTASSIUM 4.2 CHLORIDE 103 CARBON DIOXIDE 35 (*) UREA NITROGEN 15 CREATININE 0.78 GLUCOSE 116 (*) CALCIUM 9.1 ANION GAP 1 (*) eGFR 84.4 MAGNESIUM - Abnormal MAGNESIUM 2.6 (*) CBC WITH AUTO DIFFERENTIAL - Abnormal Auto WBC 12.1 (*) RBC 4.09 Hemoglobin 12.5 Hematocrit 39.0 MCV 95.4 MCH 30.7 MCHC 32.1 RDW 14.0 Platelets 339 MPV 7.5 nRBC 0.0 Neutrophils Relative 87.1 (*) Lymphocytes Relative 5.6 (*) Monocytes Relative 5.3 Eosinophils Relative 1.8 Basophils Relative 0.2 Neutrophils Absolute 10.6 (*) Lymphocytes Absolute 0.7 (*) Monocytes Absolute 0.6 Eosinophils Absolute 0.2 Basophils Absolute 0.0 All other labs were within normal range or not returned as of this dictation. EMERGENCY DEPARTMENT COURSE and DIFFERENTIAL DIAGNOSIS/MDM: Vitals: Vitals: 05/21/22 0237 BP: (!) 113/92 BP Location: Left arm Patient Position: Lying Pulse: 88 Resp: 20 Temp: 37.2 C (98.9 F) TempSrc: Oral SpO2: 98% Medications clonazePAM (KlonoPIN) tablet 0.5 mg (has no administration in time range) gabapentin (Neurontin) tablet 600 mg (has no administration in time range) albuterol 108 (90 Base) MCG/ACT inhaler 2 puff (has no administration in time range) atorvastatin (Lipitor) tablet 40 mg (has no administration in time range) buPROPion XL (Wellbutrin XL) 24 hr tablet 150 mg (has no administration in time range) fluticasone (Flonase) nasal spray 2 spray (has no administration in time range) montelukast (Singulair) tablet 10 mg (has no administration in time range) sertraline (Zoloft) tablet 200 mg (has no administration in time range) ipratropium-albuterol (Duo-Neb) 0.5-2.5 mg/3 mL nebulizer solution 3 mL (has no administration in time range) HYDROcodone-acetaminophen ([place]) 5-325 MG per tablet 1 tablet (has no administration in time range) sodium chloride 0.9% (NS) flush 5-40 mL (has no administration in time range) sodium chloride 0.9% (NS) flush 5-40 mL (has no administration in time range) sodium chloride 0.9 % infusion (has no administration in time range) acetaminophen (Tylenol) tablet 650 mg (has no administration in time range) Or acetaminophen (Tylenol) suppository 650 mg (has no administration in time range) ondansetron ODT (Zofran-ODT) disintegrating tablet 4 mg (has no administration in time range) Or ondansetron (Zofran) injection 4 mg (has no administration in time range) polyethylene glycol (PEG) 3350 (Miralax) packet 17 g (has no administration in time range) Influenza Vac A&B SA Adj quadrivalent (Fluad) vaccine 0.5 mL (has no administration in time range) sodium chloride 0.9 % infusion (has no administration in time range) melatonin tablet 6 mg (has no administration in time range) morphine sulfate (PF) injection 2 mg (has no administration in time range) lidocaine-EPINEPHrine (Xylocaine W/EPI) 1 %-1:166477 injection 10 mL (10 mL Infiltration Given 05/21/22339) morphine injection 2 mg (2 mg IntraVENous Given 05/21/22339) ED Course as of 05/21/22 0555 TueMay 21, 2022 0512 Patient on my review with no intracranial bleeds appreciated. Patient with no skull or facial bone fractures. Pelvic and chest x-rays with no acute findings. X-rays of the right elbow and right shoulder with humeral neck fractureWith medial displacement and impaction with a slightly avulsed fracture on the right total aspect of the humeral head. Elbow effusion appreciated. [PK] 0546 . [PK] 0554 EKG with sinus rhythm with a rate of 93. Patient with no ST elevations or depressions concerning for STEMI. EKG with left axis deviation. Intervals within normal limits. EKG with poor R wave progression in the lateral leads. EKG otherwise unchanged from previous. EKG interpreted by myself. [PK] ED Course User Index [PK] Martha Flores MD Diagnoses as of 05/21/22 0555 Fall, initial encounter Facial laceration, initial encounter Closed fracture of neck of right humerus, initial encounter Patient presenting for evaluation for a fall with trauma to the forehead and right shoulder and elbow. Presentation is concerning for traumatic injuries including fractures and dislocations. Patient with a laceration above the right eyebrow. Patient unlikely had a syncopal episode and states remembers everything and remembers missing had step prior to falling. Patient also unlikely with an acute stroke as a result given no focal neurologic deficits on exam. Patient is positive per [place] C-spine criteria. Given these findings work-up in the department with results is as noted above with radiology over reads that agrees with this finding. Patient with mild leukocytosis with a left shift which is likelyreactive, EKG as noted above, no electrolytes abnormalities, and no renal function impairment. Patient's laceration repaired in the emergency department as noted on the procedure note. Given these findings patient was placed in a sling. Patient is a fall risk. As a result discussed with Dr. Gresham who recommended medical admission for him to evaluate patient in the morning. Patient discussed with Dr. Dlae who accepted patient for admission to her service. Discussed lab and imaging results with the patient. Discussed with the patient orthopedic surgery recommendations. Patient verbalized understanding of information given and agreed with admission to the hospital for evaluation. Was admitted in stable condition. PROCEDURES: Unless otherwise noted below, none Laceration Repair Performed by: Martha Flores MD Authorized by: Martha Flores MD Consent: Consent obtained: Verbal Consent given by: Patient Risks discussed: Pain, poor cosmetic result, need for additional repair and poor wound healing Anesthesia: Anesthesia method: None Laceration details: Location: Shoulder/arm Shoulder/arm location: R elbow Length (cm): 3 Depth (mm): 1 Pre-procedure details: Preparation: Patient was prepped and draped in usual sterile fashion Exploration: Hemostasis achieved with: Direct pressure Imaging outcome: foreign body not noted Wound exploration: wound explored through full range of motion and entire depth of wound visualized Wound extent: no areolar tissue violation noted Contaminated: yes Treatment: Area cleansed with: Saline Amount of cleaning: Extensive Irrigation solution: Sterile saline Irrigation volume: 150 Debridement: None Undermining: None Scar revision: no Skin repair: Repair method: Steri-Strips Number of Steri-Strips: 5 Approximation: Approximation: Close Post-procedure details: Dressing: Open (no dressing) Procedure completion: Tolerated well, no immediate complications Laceration Repair Performed by: Martha Flores MD Authorized by: Martha Flores MD Consent: Consent obtained: Verbal Consent given by: Patient Risks discussed: Infection, need for additional repair, poor cosmetic result and poor wound healing [place] protocol: Patient identity confirmed: Verbally with patient Anesthesia: Anesthesia method: None Laceration details: Location: Hand Hand location: L hand, dorsum Length (cm): 2 Depth (mm): 1 Pre-procedure details: Preparation: Patient was prepped and draped in usual sterile fashion Exploration: Limited defect created (wound extended): no Hemostasis achieved with: Direct pressure Imaging outcome: foreign body not noted Wound exploration: wound explored through full range of motion and entire depth of wound visualized Treatment: Area cleansed with: Saline Amount of cleaning: Extensive Irrigation solution: Sterile saline Irrigation volume: 100 Irrigation method: Pressure wash Debridement: None Undermining: None Scar revision: no Skin repair: Repair method: Steri-Strips Number of Steri-Strips: 3 Approximation: Approximation: Close Post-procedure details: Dressing: Open (no dressing) Procedure completion: Tolerated well, no immediate complications Laceration Repair Performed by: Martha Flores MD Authorized by: Martha Flores MD Consent: Consent obtained: Verbal Consent given by: Patient Risks discussed: Infection, pain, poor cosmetic result, poor wound healing and need for additional repair [place] protocol: Patient identity confirmed: Verbally with patient Anesthesia: Anesthesia method: Local infiltration Local anesthetic: Lidocaine 1% WITH epi Laceration details: Location: Face Face location: R eyebrow Length (cm): 2 Depth (mm): 2 Pre-procedure details: Preparation: Patient was prepped and draped in usual sterile fashion Exploration: Hemostasis achieved with: Direct pressure Imaging obtained comment: CT Imaging outcome: foreign body not noted Wound exploration: wound explored through full range of motion and entire depth of wound visualized Wound extent: areolar tissue violated Wound extent: no fascia violation noted Contaminated: yes Treatment: Area cleansed with: Saline Amount of cleaning: Extensive Irrigation solution: Sterile saline Irrigation volume: 250 Irrigation method: Pressure wash Debridement: None Undermining: None Scar revision: no Skin repair: Repair method: Sutures Suture size: 5-0 Suture material: Chromic gut Suture technique: Simple interrupted Number of sutures: 4 Approximation: Approximation: Close Post-procedure details: Dressing: Open (no dressing) Procedure completion: Tolerated well, no immediate complications FINAL IMPRESSION 1. Fall, initial encounter 2. Facial laceration, initial encounter 3. Closed fracture of neck of right humerus, initial encounter DISPOSITION Admit 05/21/2022 05:12:55 AM PATIENT REFERRED TO: No follow-up provider specified. DISCHARGE MEDICATIONS: New Prescriptions No medications on file (Comment: Please note this report has been produced using speech recognition software and may contain errors related to that system including errors in grammar, punctuation, and spelling, as well as words and phrases that may be inappropriate. If there are any questions or concerns please feel freeto contact the dictating provider for clarification.) Martha Flores MD (electronically signed) Emergency Medicine Provider Martha Flores MD 05/21/22 0556 [id number] Miscellaneous Notes* Telephone Encounter - Bernadette Rubin MA - 05/06/2022 8:02 AM EST Last appointment 03/05/22 Next appointment: 09/03/22 Pharmacy verified in [facility]. Refill(s) requested: Requested Prescriptions Pending Prescriptions Disp Refills oxyCODONE-acetaminophen (PERCOCET) 5-325 mg tablet 120 tablet 0 Sig: Take 1 tablet by mouth every 6 hours as needed for pain for up to 30 days. Order(s) pended. Please advise. Bernadette Rubin MA, [facility] documented in this encounterVan Wert County Hospital02-01-2023 History of Present illness Narrative* Sally Rocha APRN - AN/SSN 2 4 OPERATOR - 04/21/2022 2:00 PM EST @LOGOIMAGE@ Chief Complaint Patient presents with Follow-up Pt has no concerns. HISTORY OF THE PRESENT ILLNESS: Gonzalo Deluca is a 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 Gonzalo Deluca is a 64 y.o. 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 Patient had positive lymph node on final pathology, was then treated with combined chemoradiotherapy. Patient is s/p radical hysterectomy, BSO, LND on 11/21/2019 followed by combined chemoradiotherapy. This completed on February 2020 TREATMENT PLAN: Adjuvant radiation therapy to the pelvis. INTERVAL SINCE RADIATION: 01/14/2020 - 03/03/2020 (49 days) 01/14/20 - 03/03/20: 45.00/45.00 Gy to the Pelvis in 25 fractions of 1.80 Gy using the VMAT/Daily IGRT technique with [address] scan 01/08 to follow up on lung nodules. IMPRESSION: 1. Advanced COPD. 2. Masslike structure with fibrotic changes in the right lower lobe. This has decreased slightly in size. 3. New 1.5 cm mixed groundglass/solid nodule in the periphery of the left lower lobe. A follow-up CT is recommended in approximately 3 or 4 months Patient is now 1-1/2 years status post completion of treatment. She denies any signs and symptoms of recurrent cervical cancer. She is doing well. Interval History Since the patient's last visit, she has been doing well and is without complaints. She does not have: Abdominal pain, abdominal distention, pelvic pain, bloating, constipation, nausea/vomiting, increased abdominal girth, early satiety, weight loss, weight gain, vaginal bleeding, vaginal discharge, changes with urination, changes with bowels, vaginal dryness. Does have SOB relatedto COPD, not worsening. Past Medical History: Diagnosis Date Abnormal stress test Allergic rhinitis Arthritis Asthma Bronchitis Cancer (CMS/HCC) skin Cervical cancer (CMS/HCC) Chest pain COPD (chronic obstructive pulmonary disease) (CMS/HCC) USE OXYGEN 3 L AT NIGHT DDD (degenerative disc disease), cervical Defect, retina, with detachment right DJD (degenerative joint disease), lumbar Emphysema lung (CMS/HCC) Former smoker Hematuria SCHEDULED FOR THE PROCEDURE /SURGERY ON 02/11/2017 Hypokalemia Lung nodules Osteoporosis Palpitations Pneumonia Recurrent major depression (CMS/HCC) Sciatica Thoracic compression fracture (CMS/HCC) Vitamin D deficiency Past Surgical History: Procedure Laterality Date CYSTOSCOPY 01/12/2017 OFFICE PROCEDURE CYSTOSCOPY 02/11/2017 C&P bladder biopsy EYE SURGERY detached retina 1994 HYSTERECTOMY 11/06/2019 ABDOMINAL RADICAL HYSTERECTOMY WITH BSO AND PELVIC LYMPH; DR. ZIYAD FISH OTHER SURGICAL HISTORY Left 12/19/2019 Med Port POWER Regular Size TUBAL LIGATION 1992 @MEDCMED@ Allergies as of 04/21/2022 (No Known Allergies) REVIEW OF SYSTEMS: As per the HPI, otherwisenegative. Vitals: 04/21/22 1405 BP: 122/78 Pulse: 93 Body mass index is 23.63 kg/m . Physical Exam Abdominal: Comments: Well-healed Pfannenstiel incision ASSESSMENT/PLAN: No evidence of disease or malignancy seen on examination today. Yearly Pap Smears, not due today-will be due 10/2022. Follow up in 6 months. We discussed routine surveillance of disease per the NCCN guidelines with history and physical examination every 3-6 months for the first 2 years followed by every 6-12 months for years 3 through 5. We discussed the imaging will be obtained on an as-needed basis, based upon history and physical exam findings. The signs and symptoms of recurrence were reviewed and the patient will contact our office in the interim should any of these arise. The patient had an opportunity to ask questions, all of which were answered to the best of my ability. She is in agreement with the above noted plan. I spent a total time of 15 minutes reviewing previous notes, test results, obtaining history, communicating results to the patient as well as counseling the patient, documenting clinical information in the patient's electronic medical record and coordinating care for the patient. Disclaimer: This note was dictated by speech recognition. I apologize for minor errors in meat team member which may be present. documented in this encounterSProMedica Defiance Regional [id number] Miscellaneous Notes* Telephone Encounter - Donovan Brower MD - 04/07/2022 4:36 PM EST PDMP website checked and validated. All prescriptions have been APPROPRIATELY filled. No suspiciousactivity was identified. 04/07/2022 by Donovan Brower MD * Telephone Encounter - Bernadette Rubin MA - 04/07/2022 2:59 PM EST Last appointment: 03/05/22 Next appointment: 09/03/22 Pharmacy verified in [facility]. Refill(s) requested: Requested Prescriptions Pending Prescriptions Disp Refills oxyCODONE-acetaminophen (PERCOCET) 5-325 mg tablet 120 tablet 0 Sig: Take 1 tablet by mouth every 6 hours as needed for pain for up to 30 days. Order(s) pended. Please advise. Bernadette Rubin MA, [employer] documented in this encounterVan Wert [facility] Hospital01-17-2023 History of Present illness Narrative* Jo Chen MA - 04/06/2022 9:57 AM EST POPULATION HEALTH NAVIGATION OUTREACH Action/FYI [place] [employer] Air Powerhart message sent ANNUAL MEDICARE WELLNESS MAMMOGRAM Never done COLORECTAL CANCER SCREENING Never done INFLUENZA(1) due on 2021 ADVANCE DIRECTIVE DISCUSSION Never done Pt identified by name and : NO Outreach Outcome/Action Unable to reach patient: Left message Wixhart message sent Did you use a PCP flex slot to schedule this appointment? N/A Reason for Outreach Care Gap or Scheduling/Wellness visits Payer: Payor: [facility] MEDICARE / Plan: [facility] DUAL COMPLETE HMO SNP / Product Type: Medicare / Care Gap Reviewed:: Annual Wellness visit Breast Cancer screening Colorectal Cancer Screening Flu Vaccine Reminder: Reminder note to check Health Maintenance for items below Health Maintenance items due: COVID-19 VACCINE(1) Never done ALPHA-1 ANTITRYPSIN DEFICIENCY SCREENING Never done MAMMOGRAM Never done COLORECTAL CANCER SCREENING Never done PNEUMOCOCCAL: 65+(2 - PCV) due on 03/11/2018 SHINGRIX VACCINE(2 of 2) due on 12/06/2019 BONE DENSITY Never done INFLUENZA(1) due on 2021 ADVANCE DIRECTIVE DISCUSSION Never done Navigation Signature: Jo Chen MA April 06, 2022 9:57 AM documented in this [facility]12-19-2022 Miscellaneous Notes* Telephone Encounter - Whit Shay LPN - 03/08/2022 8:02 PM EST Last appointment: 03/05/22 Next appointment: 09/03/22 Pharmacy verified in [facility]. Refill(s) requested: Requested Prescriptions Pending Prescriptions Disp Refills cyclobenzaprine (FLEXERIL) 5 mg tablet 30 tablet 0 Sig: Take 1 tablet by mouth three times daily as needed. Order(s) pended. Please advise. Whit Shay LPN, CMA documented in this [facility]12-16-2022 Miscellaneous Notes* Telephone Encounter - Sandy Leggett - 03/05/2022 3:18 PM EST Spoke with patient. Patient has been scheduled with PCP on 09/03/2022. Thank you. Sandy Leggett * Telephone Encounter - Melva Sandoval PA-C - 03/05/2022 3:13 PM EST Please schedule pt for 6 month follow up with Dr. Case. Thanks, Melva Sandoval PA-C documented in this [facility]12-16-2022 History of Present illness Narrative* Melva Sandoval PA-C - 03/05/2022 3:07 PM EST VIRTUAL VISIT-pt consented Gonzalo Deluca is a 66 year old female here today for "follow up." COPD: Has staff genetic counselor in [place], but hasn't seen him in a year. Has call into his office to schedule. Oxygen orders were sent to DME yesterday. DDD: taking oxycodone every 6 hours. Controls pain. Inquires about increasing seroquel. 100 mg was helping her to sleep initially but no longer helping. Depression stable. REVIEW OF SYSTEMS See HPI, otherwise unremarkable. PAST MEDICAL HISTORY Diagnosis Date COPD (chronic obstructive pulmonary disease) (HCC) DDD (degenerative disc disease), lumbar Encounter for chronic pain management Major depression, recurrent, chronic (HCC) Osteoporosis Pulmonary nodule, right 2015 PAST SURGICAL HISTORY Procedure Laterality Date CYSTOSCOPY 01/12/2017 CYSTOSCOPY 02/11/2017 EYE SURGERY HX Right 1994 detached retina TUBAL LIGATION HX 1992 FAMILY HISTORY Problem Relation Age of Onset Breast Cancer Mother other (lung cancer) Father Breast Cancer Sister 62 No Known Problems Brother Social History Tobacco Use Smoking status: Former Packs/day: 1.50 Years: 69.00 Pack years: 103.50 Types: Cigarettes Start date: 1971 Quit date: 2017 Years since quittin.9 Smokeless tobacco: Never Tobacco comments: vaping intermittently Vaping Use Vaping Use: Never used Substance Use Topics Alcohol use: No Drug use: No PHYSICAL EXAMINATION: General Appearance: Well appearing, alert, in no acute distress, wearing oxygen. ASSESSMENT: DIAGNOSIS: (J44.0, J20.9) COPD (chronic obstructive pulmonary disease) with acute bronchitis (HCC) (primary encounter diagnosis) (M51.36) DDD (degenerative disc disease), lumbar (F33.9) Major depression, recurrent, chronic (HCC) PLAN: ASSESSMENT/PLAN: 1. COPD (chronic obstructive pulmonary disease) with acute bronchitis (HCC) - ICD9: 491.22, ICD10: J44.0, J20.9 (primary diagnosis) Needs to schedule with staff genetic counselor. 2. DDD (degenerative disc disease), lumbar - ICD9: 722.52, ICD10: M51.36 Stable, medication stable. 3. Major depression, recurrent, chronic (HCC) - ICD9: 296.30, ICD10: F33.9 Stable. Follow up [address] Case or sooner prn. Offered nurse visit for vaccines, pt declined. Return in the interim prn. Pt in agreement with the plan and verbalized understanding. Melva Sandoval PA-C documented in this encounterVan Wert County Hospital12-16-2022 Miscellaneous Notes* Telephone Encounter - Shelley Mendoza - 03/05/2022 7:36 AM EST Pt scheduled herself for a follow up today 03/05/22 at 3pm with Lynette Sandoval after message was left for pt to schedule with pulmonary. * Telephone Encounter - Whit Shay LPN - 03/04/2022 8:43 AM EST Orders faxed to [facility]. for patient, needs to schedule with pulmonology order was placed in Julyto schedule. Whit Shay LPN * Telephone Encounter - Melva Sandoval PA-C - 03/03/2022 6:07 PM EST Has pt seen pulmonology? She was referred in July. Needs to get this set up if she hasn't. Orders printed, please process. Melva Sandoval PA-C * Telephone Encounter - Kita Christiansen [employer] - 03/03/2022 11:03 AM EST Gonzalo Deluca [facility] Herminia Case MD today to request an order for oxygen and portable oxygen concentrator, testing and chart notes to be sent to : Attn: Christina phone number for Christina [phone] NOTE: Christina will send pre filled forms if needed please call her to advise Patient has been identified by name and birthdate. Duration of symptoms: N/A Kita Sedinger [employer] Electronically signed by [facility] at 03/03/2022 11:08 AM EST documented in this encounterVan Wert County Hospital11-23-2022 Miscellaneous Notes* Telephone Encounter - Evangelina Baltazar MA - 02/10/2022 8:27 AM EST Last appointment: 11-20-21 Next appointment: 03-01-22 Pharmacy verified in Epic. Refill(s) requested: Requested Prescriptions Pending Prescriptions Disp Refills oxyCODONE-acetaminophen (PERCOCET) 5-325 mg tablet 120 tablet 0 Sig: Take 1 tablet by mouth every 6 hours as needed for pain for up to 30 days. Order(s) pended. Please advise. Evangelina Baltazar MA, [facility] documented in this encounterVan Wert County Hospital11-21-2022 Miscellaneous Notes* Telephone Encounter - Whit Shay LPN - 02/08/2022 8:13 PM EST Medication pended. Last visit: 11/20/21 Next visit: 03/01/22 documented in this [facility]11-16-2022 Miscellaneous Notes* Telephone Encounter - Roopa Garza RN - 02/03/2022 1:14 PM EST Called patient. She said she feels about the same as yesterday. Offered an appointment with an available provider tomorrow morning. She said she will utilize [facility] today instead. * Telephone Encounter - Melva Sandoval PA-C - 02/03/2022 10:24 AM EST Can pt come in this morning for eval? Dr. Case has openings. Would prefer that pt be evaluated. Melva Sandoval PA-C * Telephone Encounter - Greer Navarro RN - 02/02/2022 6:30 PM EST Spoke to patient who is requesting antibiotic and steroid for sinus infection - concerned because of COPD hx. Symptoms started 1 week ago Cough - sometimes productive - yellowish Runny nose and congestion Pain in forehead and eyes Sometimes right sided ear pain Sore throat from drainage Some wheezing/tightness at times No new SOB Denies fever Gets frequent sinus infections with changing weather, last sinus infection in the spring Taking mucinex, ibuprofen, flonase Requesting antibiotic and steroid Reason for Disposition [1] Sinus congestion as part of a cold AND [2] present < 10 days Protocols used: Sinus Pain or [id number] * Telephone Encounter - Jessica Whitley Pss - 02/01/2022 4:19 PM EST Gonzalo is calling back. Please contact her at [phone]. Call anytime. * Telephone Encounter - Phillip Robles RN - 02/01/2022 12:10 PM EST I was wondering if Dr Lee could send an antibiotic and steroid in for me. I'm having sinus pain and coughing quite a bit. Any questions please contact me at [phone]. My pharmacy in [facility] in [place]. Thank you! Called patient regarding message below, no answer. Left message to call office back. LookTracker message sent as well. Phillip Robles RN Reason for Disposition Message left on unidentified voice mail. Phone number verified. Protocols used: No Contact or Duplicate Contact [id number] documented in this encounterVan Wert County Hospital11-11-2022 History of Present illness Narrative* Macarena Higgins APRN.AN/SSN 2 4 OPERATOR - 01/29/2022 11:12 PM EST This is an [facility] eVisit note for Gonzalo Deluca eVisit/Questionnaire reviewed The chief complaint for the visit - Patient presents with: Sinusitis Recommendations/Treatment plan - referral <5 mins to complete Macarena Higgins APRN.AN/SSN 2 4 OPERATOR documented in this [facility]10-27-2022 Miscellaneous Notes* Telephone Encounter - Christina Patel Ma - 01/14/2022 1:56 PM EDT Patient requesting refills as follows: Last Prescribed: 12/14/21 Last O/V: 11/20/21 Next O/V : 03/01/22 Requested Prescriptions Pending Prescriptions Disp Refills oxyCODONE-acetaminophen (PERCOCET) 5-325 mg tablet 120 tablet 0 Sig: Take 1 tablet by mouth every 6 hours as needed for pain for up to 30 days. Please review and advise. Christina Patel Ma documented in this [facility]09-08-2022 Miscellaneous Notes* Telephone Encounter - Evangelina Baltazar MA - 11/26/2021 9:01 AM EDT Last appointment: 11-20-21 Next appointment: 03-01-22 Pharmacy verified in [facility]. Refill(s) requested: Requested Prescriptions Pending Prescriptions Disp Refills atorvastatin (LIPITOR) 40 mg tablet [Pharmacy Med Name: ATORVASTATIN 40 MG TABLET] 90 tablet 1 Sig: TAKE 1 TABLET BY MOUTH EVERY DAY AT NIGHT Order(s) pended. Please advise. Evangelina Baltazar MA, [employer] documented in this [facility]08-10-2022 Miscellaneous Notes* Telephone Encounter - Danyelle Contreras - 10/28/2021 10:16 AM EDT Last appointment: 08/06/21 Next appointment: 11/12/21 Pharmacy verified in Epic. Refill(s) requested: Requested Prescriptions Pending Prescriptions Disp Refills QUEtiapine (SEROQUEL) 100 mg tablet 90 tablet 1 Sig: Take 1 tablet by mouth at bedtime as needed. Order(s) pended. Please advise. Danyelle Contreras LPN documented in this encounterVan Wert County Hospital08-01-2022 Miscellaneous Notes* Telephone Encounter - Melva Sandoval PA-C - 10/19/2021 1:06 PM EDT PDMP website checked and validated. All prescriptions have been APPROPRIATELY filled. No suspiciousactivity was identified. 10/19/2021 by Melva Sandoval PA-C * Telephone Encounter - Estee Amor LPN - 10/19/2021 12:47 PM EDT Pharmacy verified in [facility] Patient has been identified by name and date of : Yes Patient aware RX will be sent to pharmacy. No need to notify patient. Patient phones for refill(s): Pending Prescriptions Disp Refills OXYCODONE-ACETAMINOPHEN 5 MG-325 MG TABLET 120 tablet 0 Sig: Take 1 tablet by mouth every 6 hours as needed for pain for up to 30 days. SAULO Class: C-II SLAVA: No Date of last office visit : 08/06/2021 Date of next office visit : 11/12/2021 Last 2 Encounter Wt Readings: Date: Wt: 08/06/2021 58.8 kg (129 lb 9.6 oz) 02/02/2021 59.8 kg (131 lb 12.8 oz) Not applicable Please advise. Estee Amor LPN documented in this encounterVan Wert County Hospital07-28-2022 Miscellaneous Notes* Telephone Encounter - Whit Shay LPN - 10/15/2021 12:47 PM EDT Request completed and faxed. * Telephone Encounter - Herminia Case MD - 10/15/2021 12:45 PM EDT Done. * Telephone Encounter - Whit Shay LPN - 10/13/2021 1:11 PM EDT Placed on Dr. Case's desk for review. They are asking for a oxygen determination test. None on file. Please advise. Whit Shya LPN documented in this encounterVan Wert County Hospital07-27-2022 History of Present illness Narrative* Bret Contreras RN - 10/14/2021 1:00 PM EDT Pt here for port access for CT scan. Left Chest port accessed. Blood drawn from port. 1415: Ordered treatment completed. Patient discharged without any issues. Patient has a copy of next infusion appointment and verbalizes understanding. All questions answered. documented in this encounterSUMNE Work Phone: 1(442) 399-356506-08-2022 Miscellaneous Notes* Telephone Encounter - Melva Sandoval PA-C - 08/26/2021 3:47 PM EDT PDMP website checked and validated. All prescriptions have been APPROPRIATELY filled. No suspiciousactivity was identified. 08/26/2021 by Melva Sandoval PA-C * Telephone Encounter - Estee Amor LPN - 08/26/2021 2:15 PM EDT Pharmacy verified in Epic Patient has been identified by name and date of : Yes Patient aware RX will be sent to pharmacy. No need to notify patient. Patient phones for refill(s): Pending Prescriptions Disp Refills OXYCODONE-ACETAMINOPHEN 5 MG-325 MG TABLET 120 tablet 0 Sig: Take 1 tablet by mouth every 6 hours as needed for pain for up to 30 days. SAULO Class: C-II SLAVA: No Date of last office visit : 08/06/2021 Date of next office visit : 11/12/2021 Last 2 Encounter Wt Readings: Date: Wt: 08/06/2021 58.8 kg (129 lb 9.6 oz) 02/02/2021 59.8 kg (131 lb 12.8 oz) Not applicable Please advise. Estee Amor LPN documented in this encounterVan Wert County Hospital05-20-2022 Miscellaneous Notes* Telephone Encounter - Whit Shay LPN - 08/07/2021 3:24 PM EDT Mailed labs to patient and faxed office notes to [facility]. Whit Shay LPN * Telephone Encounter - Lala Rosas Pss - 08/07/2021 12:56 PM EDT Please mail lab orders to her home. Yes [facility] in [place] is where they need sent. Lala Jay * Telephone Encounter - Whit Shay LPN - 08/07/2021 11:24 AM EDT LM for patient to call office. 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 Need to know if it is [facility] her office notes need sent to. Whit Shay LPN documented in this encounterVan Wert County Hospital05-19-2022 Nurse Note* Lala Menard Pss - 08/06/2021 5:26 PM EDT Repeated Vitals SpO2 95 % on 3L nasal cannula , Pulse 90 SpO2 92% on room air for 2 min sitting , Pulse 92 SpO2 84% on room air ambulating 25 steps, Pulse 96 documented in this encounterVan Wert County Hospital05-19-2022 History of Present illness Narrative* Herminia Case MD - 08/06/2021 4:51 PM EDT Patient presents with: Follow Up HPI: Gonzalo Deluca is a 65 year old female who presents to the office today for follow up. 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 CT chest 12/2020 - wax and waning nodules, favor inflammation over neoplastic. Severe centrilobular emphysema Copd 2-3 Liters continuous C/o pressure in her sinuses, post nasal drip, purulent drainage No teeth pain X 1 week Increased sob. Chronic thoracic compression fracture Percocet QID - allows her to gt up and down the stairs, get around the house better, increases her function. Pain is lower back, no radiation. Last utox 08/2020 Depression Doing well on wellbutrin, zoloft Increased seroquel to 100 mg last visit, sleeping better. REVIEW OF SYSTEMS: CONSTITUTIONAL: No fevers, chills, nightsweats, unintended weight loss HEENT: Denies frequent or severe heaches, nasal congestion/sinus symptoms, problematic allergy problems. EYES: No diplopia or blurry vision. CARDIOVASCULAR: No chest pain, dyspnea, palpitations, orthopnea, PND, ankle edema. PULM: No dyspnea, unexplained cough. GI: No dysphagia/odynophagia, problematic reflux, constipation, diarrhea, changes in stool habits, hematochezia, melena. : No new urinary complaints, including dysuria, gross hematuria or pyuria. NEURO: No new balance problems, peripheral weakness/paresthesias or numbness of concern. MUSC-SKEL: No new joint pain, swelling, or erythema. PSY: No concerns regarding depression, anxiety or panic. INTEGUMENTARY: No new skin changes (rash, new or changing mole, new growth) PAST MEDICAL HISTORY Diagnosis Date COPD (chronic obstructive pulmonary disease) (HCC) DDD (degenerative disc disease), lumbar Encounter for chronic pain management Major depression, recurrent, chronic (HCC) Osteoporosis Pulmonary nodule, right 2015 PAST SURGICAL HISTORY Procedure Laterality Date CYSTOSCOPY 01/12/2017 CYSTOSCOPY 02/11/2017 EYE SURGERY HX Right 1994 detached retina TUBAL LIGATION HX 1993 FAMILY HISTORY Problem Relation Age of Onset Breast Cancer Mother other (lung cancer) Father Breast Cancer Sister 62 No Known Problems Brother Social History Tobacco Use Smoking status: Former Smoker Packs/day: 1.50 Years: 69.00 Pack years: 103.50 Start date: 1971 Quit date: 2017 Years since quittin.3 Smokeless tobacco: Never Used Tobacco comment: vaping intermittently Vaping Use Vaping Use: Never used Substance Use Topics Alcohol use: No Drug use: No ACTIVE PROBLEM LIST Ddd (Degenerative Disc Disease), Lumbar Panlobular Emphysema (Hcc) Major Depression, Recurrent, Chronic (Hcc) Osteoporosis Pulmonary Nodule, Right Compression Fracture of Body of Thoracic Vertebra (Hcc) Obesity, Class I, Bmi 30-34.9 Chronic Midline Low Back Pain Without Sciatica Malignant Neoplasm of Exocervix (Hcc) Copd (Chronic Obstructive Pulmonary Disease) With Acute Bronchitis (Hcc) Chronic Respiratory Failure With Hypoxia (Hcc) ALLERGIES Allergen Reactions Seasonal Allergies Intolerance MEDICATIONS: fluticasone (FLONASE) 50 mcg/actuation nasal spray Use 2 Sprays in each nostril once daily. oxyCODONE-acetaminophen (PERCOCET) 5-325 mg tablet Take 1 tablet by mouth every 6 hours as needed for pain for up to 30 days. Do not start before July 30, 2021. fluticasone-vilanterol (BREO ELLIPTA) 200-25 mcg/dose inhaler Inhale 1 Inhalation as instructed once daily. tiotropium bromide (SPIRIVA RESPIMAT) 2.5 mcg/actuation inhaler Inhale 2 Puffs as instructed once daily. Inhale two puffs once daily. QUEtiapine (SEROQUEL) 100 mg tablet Take 1 tablet by mouth at bedtime as needed. alendronate (FOSAMAX) 70 mg tablet Take 1 tablet by mouth one time a week. atorvastatin (LIPITOR) 40 mg tablet TAKE 1 TABLET BY MOUTH EVERY DAY AT NIGHT OXYGEN, HOME THERAPY, 3 L/min by Nasal Cannula route continuous. aspirin, enteric coated (ASPIRIN, ENTERIC COATED) 81 mg EC tablet Take 81 mg by mouth. albuterol (PROVENTIL) 2.5 mg /3 mL (0.083 %) nebulizer solution buPROPion XL (WELLBUTRIN XL) 150 mg 24 hr tablet Take 1 tablet by mouth once daily. albuterol HFA (PROVENTIL HFA, VENTOLIN HFA) 90 mcg/actuation inhaler Inhale 2 Puffs as instructed every 4 hours as needed for wheezing/shortness of breath. cyclobenzaprine (FLEXERIL) 5 mg tablet Take 1 tablet by mouth three times daily as needed. doxycycline hyclate (VIBRAMYCIN) 100 mg capsule Take 1 capsule by mouth twice daily for 7 days. predniSONE (DELTASONE) 20 mg tablet 2 tabs daily x 3 days, then 1 tab daily x 3 days, then 1/2 tab daily x 4 days sertraline (ZOLOFT) 100 mg tablet Take 2 tablets by mouth once daily. EXAM:BP 124/74 (BP Site: Right Arm, BP Position: Sitting) Pulse 96 Temp 37.1 C (98.8 F) (Temporal) Wt 58.8 kg (129 lb 9.6 oz) SpO2 (!) 84% BMI 21.57 kg/m Last Wt 08/06/21 : 58.8 kg (129 lb 9.6 oz) 02/02/21 : 59.8 kg (131 lb 12.8 oz) 10/28/20 : 60.3 kg (133 lb) 09/15/20 : 60.3 kg (133 lb) PHYSICAL EXAM: General Appearance: Well appearing, alert, in no acute distress, well-hydrated, well nourished.. Skin: Skin color, texture, turgor normal, no suspicious rashes or lesions. Lymph Nodes: No cervical lymphadenopathy, No supraclavicular lymphadenopathy Head: Normocephalic, no masses, lesions, tenderness or abnormalities. Eyes: Anicteric sclera. Pupils are equally round and reactive to light. Extraocular movements are intact. . Nose/Sinuses: Nares normal, septum midline, mucosa normal, no drainage or sinus tenderness. Oropharynx: Lips, mucosa, and tongue normal, teeth and gums normal, oropharynx normal. Neck: Supple, no adenopathy; thyroid symmetric, normal size, no bruits. Lungs: diffuse wheezing throughout Heart: RRR without murmur, gallop, or rubs. No ectopy. Neurologic: Gait normal. ASSESSMENT/PLAN: 1. Panlobular emphysema (HCC) - ICD9: 492.8, ICD10: J43.1 (primary diagnosis) - CONSULT TO PULM/CRITICAL CARE - ALBUTEROL SULFATE HFA 90 MCG/ACTUATION AEROSOL INHALER - COMP METABOLIC PANEL - CBC + DIFF - DOXYCYCLINE HYCLATE 100 MG CAPSULE - PREDNISONE 20 MG TABLET 2. Encounter for screening mammogram for malignant neoplasm of breast - ICD9: V76.12, ICD10: Z12.31 - PAOLO SCREENING W CARON 3. Chronic respiratory failure with hypoxia (HCC) - ICD9: 518.83, 799.02, ICD10: J96.11 - CONSULT TO PULM/CRITICAL CARE - COMP METABOLIC PANEL - CBC + DIFF 4. Medication monitoring encounter - ICD9: V58.83, ICD10: Z51.81 - PAIN PANEL, UR QUANT - TOX SCREEN ROUT UR 5. Major depression, recurrent, chronic (HCC) - ICD9: 296.30, ICD10: F33.9 - BUPROPION XL 150 MG TAB 6. Compression fracture of body of thoracic vertebra (HCC) - ICD9: 805.2, ICD10: S22.000A 7. Chronic midline low back pain without sciatica - ICD9: 724.2, 338.29, ICD10: M54.50, G89.29 - CYCLOBENZAPRINE 5 MG TABLET 8. Screening for lipid disorders - ICD9: V77.91, ICD10: Z13.220 - LIPID PANEL BASIC 9. Vitamin D deficiency - ICD9: 268.9, ICD10: E55.9 - VITAMIN D 25 HYDROXY 10. Pulmonary nodule, right - ICD9: 793.11, ICD10: R91.1 - encouraged to call semiconductor wafers etcher stripper/onc if needs further follow up and imaging. Herminia Case * Lala Menard Pss - 08/06/2021 4:35 PM EDT MAMMOGRAM Never done [facility] Miscellaneous Notes* Telephone Encounter - Whit Shay LPN - 08/06/2021 2:02 PM EDT Request completed and faxed. * Telephone Encounter - Herminia Case MD - 08/06/2021 1:41 PM EDT Done. * Telephone Encounter - Whit Shay LPN - 08/06/2021 10:47 AM EDT Type of letter/form/fax request - Home Health Care Orders Form received from [facility] on 08/04/21 floor and placed on MD desk () for completion. Completed form needs to be faxed to [phone]. Route to [place] when form completed for processing documented [facility] Miscellaneous Notes* Telephone Encounter - Jessica Kong APRN.CNP - 07/28/2021 4:00 PM EDT PDMP website checked and validated. All prescriptions have been APPROPRIATELY filled. No suspiciousactivity was identified. 07/28/2021 by Jessica Kong APRN.NADEEM * Telephone Encounter - Slade Mcgee Ma - 07/28/2021 1:34 PM EDT Patient has been identified by name and date of : Yes Pending Prescriptions Disp Refills OXYCODONE-ACETAMINOPHEN 5 MG-325 MG TABLET 120 tablet 0 Sig: Take 1 tablet by mouth every 6 hours as needed for pain for up to 30 days. SAULO Class: C-II SLAVA: No RX INSTRUCTIONS: Patient aware RX will be sent to pharmacy. No need to notify patient. Slade Mcgee Ma documented in this [facility]04-13-2022 Miscellaneous Notes* Telephone Encounter - Jessica Kong APRN.NADEEM - 07/01/2021 5:04 PM EDT PDMP website checked and validated. All prescriptions have been APPROPRIATELY filled. No suspiciousactivity was identified. 07/01/2021 by Jessica Kong APRN.NADEEM * Telephone Encounter - Evangelina Baltazar MA - 07/01/2021 2:26 PM EDT Last appointment: 05-06-21 Next appointment: 08-06-21 Pharmacy verified in [facility]. Refill(s) requested: Pending Prescriptions Disp Refills OXYCODONE-ACETAMINOPHEN 5 MG-325 MG TABLET 120 tablet 0 Sig: Take 1 tablet by mouth every 6 hours as needed for pain for up to 30 days. SAULO Class: C-II SLAVA: No Order(s) pended. Please advise. Evangelina Baltazar MA, SALAD [employer] documented in this [facility]04-13-2022 Miscellaneous Notes* Telephone Encounter - Evangelina Baltazar MA - 07/01/2021 2:17 PM EDT Last appointment: 05-06-21 Next appointment: 08-06-21 Pharmacy verified in [facility]. Refill(s) requested: Pending Prescriptions Disp Refills PREDNISONE 20 MG TABLET 12 tablet 0 Si tabs daily x 3 days, then 1 tab daily x 3 days, then 1/2 tab daily x 4 days SLAVA: No Order(s) pended. Please advise. Evangelina Baltazar MA, SALAD CHEF documented in this [facility]10-08-2021 History of Present illness Narrative* Shelley Lott RN - 12/26/2020 9:45 AM EDT Patient here for port access prior to CT scan, labs drawn via port. 1015 Patient taken to radiology by this RN, left at window with registration. documented [facility] encounter[facility] Work Phone: 1(876) 336-918907-29-2021 Hospital Discharge instructions* Instructions* Lauren Lutz APRN - CNP - 10/16/2020 Use a hemorrhoid pillow for the coccyx fracture, take your pain medication. * Attachments The following attachments cannot be sent through Care Everywhere. * Coccyx Injury ([place]) documented in this encounterSUMMA Work Phone: 1(275) 673-546707-07-2021 History of Present illness Narrative* Judy Mayer RN - 09/24/2020 10:55 AM EDT Arrival Note Patient is here for port access and flush for CT scan Labs were not ordered. 1230-Ordered treatment completed. Patient discharged without any issues. Patient has a copy of nextinfusion appointment and verbalizes understanding. All questions answered. documented in this encounterSUMFamiliar Work Phone: Evaluation note* Diagnosis Poor venous access- Primary Other specified circulatory system disorders Malignant neoplasm of exocervix (HCC) Malignant neoplasm of exocervix documented in this encounter [facility] Work Phone: Evaluation note* Diagnosis Closed fracture of coccyx, initial encounter (HCC)- Primary Contusion of right elbow, initial encounter documented in this encounter [facility] Work Phone: Evaluation note* Diagnosis Malignant neoplasm of exocervix (HCC)- Primary Malignant neoplasm of exocervix Poor venous access Other specified circulatory system disorders documented in this encounter [facility] Work Phone: Evaluation note* Diagnosis Malignant neoplasm of exocervix (HCC) Malignant neoplasm of exocervix Lung nodule seen on imaging study documented in this encounter [facility] Work Phone: [phone] note* Diagnosis Compression fracture of body of thoracic vertebra (HCC) [facility] Diagnosis Compression fracture of body of thoracic vertebra (HCC) [facility] Diagnosis COPD (chronic obstructive pulmonary disease) with acute bronchitis (HCC) Obstructive chronic bronchitis with acute bronchitis [facility] Panlobular emphysema (HCC)- Primary Other emphysema Encounter for screening mammogram for malignant neoplasm of breast Other screening mammogram Chronic respiratory failure with hypoxia (HCC) Chronic respiratory failure Medication monitoring encounter Encounter for therapeutic drug monitoring Major depression, recurrent, chronic (HCC) Major depressive disorder, recurrent episode, unspecified Compression fracture of body of thoracic vertebra (HCC) Chronic midline low back pain without sciatica Screening for lipid disorders Vitamin D deficiency Unspecified vitamin D deficiency Pulmonary nodule, right Solitary pulmonary nodule [facility] Diagnosis Compression fracture of body of thoracic vertebra (HCC) [facility]* Diagnosis Malignant neoplasm of exocervix (HCC)- Primary Malignant neoplasm of exocervix Abnormal chest CT Nonspecific (abnormal) findings on radiological and other examination of other intrathoracic organs Other specified complication of vascular prosthetic devices, implants and grafts, initial encounter (HCC) Poor venous access Other specified circulatory system disorders documented in this encounter [facility] Work Phone: Evaluation note* Diagnosis Malignant neoplasm of exocervix (HCC) Malignant neoplasm of exocervix Abnormal findings on diagnostic imaging of other specified body structures Abnormal chest CT Nonspecific (abnormal) findings on radiological and other examination of other intrathoracic organs documented in this encounter [facility] Work Phone: Evaluation note* Diagnosis Compression fracture of body of thoracic vertebra (HCC) [facility] Diagnosis Medication management Encounter for long-term (current) use of other medications [facility] Diagnosis Hyperlipidemia, mixed Mixed hyperlipidemia [facility] Diagnosis Compression fracture of body of thoracic vertebra (HCC) [facility] Diagnosis Other acute sinusitis, recurrence not specified- Primary [facility]* Diagnosis Chronic midline low back pain without sciatica [facility] Medication management Encounter for long-term (current) use of other medications [facility] Diagnosis Panlobular emphysema (HCC)- Primary Other emphysema [facility] Diagnosis COPD (chronic obstructive pulmonary disease) with acute bronchitis (HCC)- Primary Obstructive chronic bronchitis with acute bronchitis DDD (degenerative disc disease), lumbar Degeneration of lumbar or lumbosacral intervertebral disc Major depression, recurrent, chronic (HCC) Major depressive disorder, recurrent episode, unspecified [facility] Diagnosis Chronic midline low back pain without sciatica [facility]* Diagnosis Compression fracture of body of thoracic vertebra (HCC) [facility] Diagnosis Other closed nondisplaced fracture of proximal end of right humerus with routine healing, subsequent encounter- Primary Panlobular emphysema (HCC) Other emphysema Chronic respiratory failure with hypoxia (HCC) Chronic respiratory failure COPD (chronic obstructive pulmonary disease) with acute bronchitis (HCC) Obstructive chronic bronchitis with acute bronchitis Major depression, recurrent, chronic (HCC) Major depressive disorder, recurrent episode, unspecified Compression fracture of body of thoracic vertebra (HCC) [facility] Diagnosis Chronic respiratory failure with hypoxia (HCC)- Primary Chronic respiratory failure Panlobular emphysema (HCC) Other emphysema [facility] Diagnosis Encounter for screening mammogram for breast cancer [facility] Diagnosis Compression fracture of body of thoracic vertebra (HCC) Other closed nondisplaced fracture of proximal end of right humerus with routine healing, subsequent encounter [facility] Diagnosis Major depression, recurrent, chronic (HCC) Major depressive disorder, recurrent episode, unspecified [facility] Diagnosis Medication management Encounter for long-term (current) use of other medications [facility] Diagnosis Panlobular emphysema (HCC)- Primary Other emphysema COPD (chronic obstructive pulmonary disease) with acute bronchitis (HCC) Obstructive chronic bronchitis with acute bronchitis Hyperlipidemia, mixed Mixed hyperlipidemia Medication monitoring encounter Encounter for therapeutic drug monitoring Screening for colon cancer Special screening for malignant neoplasms, colon Medication management Encounter for long-term (current) use of other medications Chronic midline low back pain without sciatica DDD (degenerative disc disease), lumbar Degeneration of lumbar or lumbosacral intervertebral disc Major depression, recurrent, chronic (HCC) Major depressive disorder, recurrent episode, unspecified [facility] Diagnosis Major depression, recurrent, chronic (HCC) Major depressive disorder, recurrent episode, unspecified documented [facility] encounter [facility]* Diagnosis Malignant neoplasm of exocervix (HCC)- Primary Malignant neoplasm of exocervix Encounter for screening mammogram for malignant neoplasm of breast documented in this encounter [facility] note* Diagnosis Compression fracture of body of thoracic vertebra (HCC) Other closed nondisplaced fracture of proximal end of right humerus with routine healing, subsequent encounter documented [facility]* Diagnosis Major depression, recurrent, chronic (HCC) Major depressive disorder, recurrent episode, unspecified documented [facility]* Diagnosis Pulmonary emphysema, unspecified emphysema type (HCC) documented [facility]* Diagnosis Nondisplaced fracture of neck of left femur (HCC)- Primary Closed displaced intertrochanteric fracture of left femur, initial encounter ([facility]) documented in this encounter [facility] note* Diagnosis Compression fracture of body of thoracic vertebra (HCC) documented [facility]* Diagnosis Compression fracture of body of thoracic vertebra (HCC) Other closed nondisplaced fracture of proximal end of right humerus with routine healing, subsequent encounter documented [facility] encounter [facility]* Diagnosis Hyperlipidemia, mixed Mixed hyperlipidemia documented in this encounter [facility]* Diagnosis Pulmonary emphysema, unspecified emphysema type (HCC) [facility]* Diagnosis Age-related osteoporosis without current pathological fracture Senile osteoporosis documented [facility]* Diagnosis Age-related osteoporosis with current pathological fracture of left femur with routine healing- Primary Aftercare for healing pathologic fracture of upper leg [facility] Diagnosis Compression fracture of body of thoracic vertebra (HCC)- Primary Family history of breast cancer Family history of malignant neoplasm of breast Malignant neoplasm of exocervix (HCC) Malignant neoplasm of exocervix Encounter for immunization Need for other specified prophylactic vaccination against single bacterial disease Moderate episode of recurrent major depressive disorder (HCC) Panlobular emphysema (HCC) Other emphysema Other closed nondisplaced fracture of proximal end of right humerus with routine healing, subsequent encounter Moderate malnutrition (HCC) Malnutrition of moderate degree [facility] Diagnosis Lumbar compression fracture, closed, initial encounter ([facility])- Primary Lumbar compression fracture, closed, initial encounter ([facility]) Fall, initial encounter Multiple falls Nondisplaced fracture of neck of left femur (HCC) documented in this encounter [facility] note* Diagnosis Compression fracture of body of thoracic vertebra (HCC) Other closed nondisplaced fracture of proximal end of right humerus with routine healing, subsequent encounter [facility] Diagnosis PAUL (generalized anxiety disorder)- Primary Generalized anxiety disorder Medication monitoring encounter Encounter for therapeutic drug monitoring Compression fracture of body of thoracic vertebra (HCC) Other closed nondisplaced fracture of proximal end of right humerus with routine healing, subsequent encounter Chronic respiratory failure with hypoxia (HCC) Chronic respiratory failure Panlobular emphysema (HCC) Other emphysema Moderate episode of recurrent major depressive disorder (HCC) documented [facility]* Diagnosis Moderate episode of recurrent major depressive disorder (HCC)- Primary Panlobular emphysema (HCC) Other emphysema documented [facility]* Diagnosis Age-related osteoporosis with current pathological fracture of left femur, initial encounter ([facility])- Primary [facility]* Diagnosis PAUL (generalized anxiety disorder) Generalized anxiety disorder [facility]* Diagnosis Compression fracture of body of thoracic vertebra (HCC) Other closed nondisplaced fracture of proximal end of right humerus with routine healing, subsequent encounter [facility]* Diagnosis Compression fracture of body of thoracic vertebra (HCC) Other closed nondisplaced fracture of proximal end of right humerus with routine healing, subsequent encounter [facility]* Diagnosis Encounter for screening mammogram for breast cancer [facility] Diagnosis Compression fracture of body of thoracic vertebra (HCC) Other closed nondisplaced fracture of proximal end of right humerus with routine healing, subsequent encounter [facility]* Diagnosis Pulmonary emphysema, unspecified emphysema type (HCC) [facility]* Diagnosis Moderate episode of recurrent major depressive disorder (HCC) PAUL (generalized anxiety disorder) Generalized anxiety disorder documented in this encounter [facility] note* Diagnosis Moderate episode of recurrent major depressive disorder (HCC) PAUL (generalized anxiety disorder) Generalized anxiety disorder [facility] encounter [facility]* Diagnosis Medication management Encounter for long-term (current) use of other medications documented in this encounter [facility] note* Diagnosis Moderate episode of recurrent major depressive disorder (HCC)- Primary Panlobular emphysema (HCC) Other emphysema Chronic respiratory failure with hypoxia (HCC) Chronic respiratory failure documented in this encounter [facility] note* Diagnosis Major depression, recurrent, chronic (HCC) Major depressive disorder, recurrent episode, unspecified documented in this encounter [facility] note* Diagnosis Bronchitis- Primary Bronchitis, not specified as acute or chronic COPD exacerbation ([facility]) Obstructive chronic bronchitis with exacerbation documented in this encounter [facility] note* Diagnosis Compression fracture of body of thoracic vertebra (HCC) Other closed nondisplaced fracture of proximal end of right humerus with routine healing, subsequent encounter [facility] Diagnosis Herpes zoster without complication- Primary Herpes zoster without mention of complication documented in this encounter [facility] note* Diagnosis Compression fracture of body of thoracic vertebra (HCC) Other closed nondisplaced fracture of proximal end of right humerus with routine healing, subsequent encounter [facility]* Diagnosis Moderate episode of recurrent major depressive disorder (HCC) documented in this encounter [facility] note* Diagnosis Falls frequently- Primary Personal history of fall Near syncope Closed head injury, initial encounter Fall, initial encounter Compression fracture of T5 vertebra, initial encounter ([facility]) Compression fracture of T7 vertebra, initial encounter ([facility]) Compression fracture of T8 vertebra, initial encounter ([facility]) Compression fracture of L1 vertebra, initial encounter ([facility]) Severe malnutrition (CMS/HCC) (HCC) Nutritional marasmus Chronic back pain Unspecified backache COPD (chronic obstructive pulmonary disease) ([facility]) Chronic airway obstruction, not elsewhere classified Supplemental oxygen dependent Dependence on supplemental oxygen Unintentional weight loss Loss of weight Debility Unspecified debility documented in this encounter [facility] note* Diagnosis OPENED IN ERROR- Primary To allow closing an encounter opened in error (used in SmartSet) [facility]* Diagnosis Pathological fracture of vertebra due to other osteoporosis with routine healing, subsequent encounter- Primary documented in this encounter [facility]* Diagnosis Pulmonary emphysema, unspecified emphysema type (HCC) documented in this encounter [facility]* Diagnosis Osteoporotic vertebral collapse, with routine healing, subsequent encounter- Primary [facility]* Diagnosis Fall, initial encounter- Primary Compression fracture of body of thoracic vertebra (HCC) documented in this encounter [facility] note* Diagnosis Moderate episode of recurrent major depressive disorder (HCC) [facility]* Diagnosis Compression fracture of body of thoracic vertebra (HCC) Other closed nondisplaced fracture of proximal end of right humerus with routine healing, subsequent encounter documented in this encounter [facility]* Diagnosis Pulmonary emphysema, unspecified emphysema type (HCC) [facility]* Diagnosis Osteoporotic vertebral collapse, with routine healing, subsequent encounter- Primary [facility]* Diagnosis Panlobular emphysema (HCC) Other emphysema Compression fracture of body of thoracic vertebra (HCC) Other closed nondisplaced fracture of proximal end of right humerus with routine healing, subsequent encounter documented in this encounter [facility]* Diagnosis Age-related osteoporosis without current pathological fracture Senile osteoporosis [facility]* Diagnosis Panlobular emphysema (HCC) Other emphysema [facility] Diagnosis Compression fracture of body of thoracic vertebra (HCC) Other closed nondisplaced fracture of proximal end of right humerus with routine healing, subsequent encounter documented in this encounter [facility]* Diagnosis PAUL (generalized anxiety disorder) Generalized anxiety disorder [facility]* Diagnosis Malignant neoplasm of exocervix (HCC)- Primary Malignant neoplasm of exocervix documented in this encounter [facility] note* Diagnosis Fall, initial encounter- Primary Fall, initial encounter Facial laceration, initial encounter Closed fracture of neck of right humerus, initial encounter Humeral head fracture, right, closed, initial encounter Humeral head fracture, right, closed, initial encounter documented in this encounter [facility] note* Diagnosis Compression fracture of body of thoracic vertebra (HCC) Other closed nondisplaced fracture of proximal end of right humerus with routine healing, subsequent encounter [facility] Diagnosis Moderate episode of recurrent major depressive disorder (HCC) [facility]* Diagnosis Moderate episode of recurrent major depressive disorder (HCC) PAUL (generalized anxiety disorder) Generalized anxiety disorder [facility]* Diagnosis Pulmonary emphysema, unspecified emphysema type (HCC) [facility]* Diagnosis Contusion of face, initial encounter- Primary [facility]* Diagnosis Compression fracture of body of thoracic vertebra (HCC)- Primary Panlobular emphysema (HCC) Other emphysema Moderate episode of recurrent major depressive disorder (HCC) PAUL (generalized anxiety disorder) Generalized anxiety disorder Chronic respiratory failure with hypoxia (HCC) Chronic respiratory failure Hyperlipidemia, mixed Mixed hyperlipidemia Hyperglycemia Other abnormal glucose Other closed nondisplaced fracture of proximal end of right humerus with routine healing, subsequent encounter documented [facility]* Diagnosis Moderate episode of recurrent major depressive disorder (HCC) Compression fracture of body of thoracic vertebra (HCC) Other closed nondisplaced fracture of proximal end of right humerus with routine healing, subsequent encounter [facility] Diagnosis Panlobular emphysema (HCC)- Primary Other emphysema Moderate episode of recurrent major depressive disorder (HCC) Chronic respiratory failure with hypoxia (HCC) Chronic respiratory failure [facility]* Diagnosis Compression fracture of body of thoracic vertebra (HCC) Other closed nondisplaced fracture of proximal end of right humerus with routine healing, subsequent encounter documented [facility]* Diagnosis Chronic respiratory failure with hypoxia (HCC)- Primary Chronic respiratory failure Centrilobular emphysema (HCC) Other emphysema Adult failure to thrive Severe protein-calorie malnutrition (HCC) Other severe protein-calorie malnutrition [facility]* Diagnosis Chronic obstructive pulmonary disease, unspecified COPD type (HCC)- Primary Severe malnutrition (CMS/HCC) (HCC) Nutritional marasmus [facility]* Diagnosis Adult failure to thrive- Primary Adult failure to thrive Severe protein-calorie malnutrition (HCC) Other severe protein-calorie malnutrition Closed supracondylar fracture of left humerus, initial encounter Severe malnutrition (CMS/HCC) (HCC) Nutritional marasmus Pulmonary emphysema, unspecified emphysema type (HCC) Chronic obstructive pulmonary disease, unspecified COPD type (HCC) Debility Unspecified debility Severe malnutrition (CMS/HCC) (HCC) Nutritional marasmus Anxiety and depression Cognitive deficits Unspecified persistent mental disorders due to conditions classified elsewhere Chronic pain Other chronic pain At risk for delirium documented in this encounter [facility] note* Diagnosis PAUL (generalized anxiety disorder) Generalized anxiety disorder documented in this encounter [facility] note* Diagnosis Hospital discharge follow-up- Primary Other follow-up examination Acute on chronic respiratory failure with hypoxia (HCC) Centrilobular emphysema (HCC) Aspiration pneumonia of left lower lobe, unspecified aspiration pneumonia type (HCC) Chronic obstructive pulmonary disease with acute lower respiratory infection (HCC) History of tobacco abuse Severe malnutrition (CMS/HCC) (HCC) Nutritional marasmus documented in this encounter [facility] note* Diagnosis Compression fracture of body of thoracic vertebra ([facility]) Other closed nondisplaced fracture of proximal end of right humerus with routine healing, subsequent encounter documented in this encounter [facility] note* Diagnosis Other specified complication of vascular prosthetic devices, implants and grafts, initial encounter ([facility])- Primary Poor venous access documented in this encounter [facility] Discharge instructions* Attachments The following attachments cannot be sent through Care Everywhere. * Acute Bronchitis Discharge Instructions, Adult ([place]) documented in this [facility] Discharge instructions* Attachments The following attachments cannot be sent through Care Everywhere. * Closed Head Injury Discharge Instructions ([place]) documented in this [facility] for referral (narrative)* Diagnostic Procedure Only (Routine) - Pending Review Specialty Diagnoses / Procedures Referred By Lisa t Referred To Contact [facility] Diagnoses Encounter for screening mammogram for breast cancer Procedures PAOLO SCREENING SCREENING MAMMOGRAPHY BI 2-VIEW BREAST INC CAD Herminia Case MD [address] [place] [id number] [facility] [address] [facility] [address] Referral ID Status Reason Start Date Expiration Date Visits Requested Visits Authorized [id number] Pending Review Auto-Generat ed Referral 07/14/2022 08/13/2023 1 1 T [facility] for referral (narrative)* Diagnostic Procedure Only (Routine) - Pending Review Specialty Diagnoses / Procedures Referred By Lisa french Referred To Contact [facility] Diagnoses Encounter for screening mammogram for breast cancer Procedures PAOLO SCREENING SCREENING MAMMOGRAPHY BI 2-VIEW BREAST INC CAD Herminia Case MD [address] [place] [address] [facility] [address] [place] [address] Referral ID Status Reason Start Date Expiration Date Visits Requested Visits Authorized [id number] Pending Review Auto-Generat ed Referral 06/22/2023 07/21/2024 1 1 [facility] for visit Narrative* Treatment Plan (Routine) Status Reason Specialty Diagnoses / Procedures Referred By Contact Referred To Contact Authorized Diagnoses Malignant neoplasm of exocervix (HCC) Poor venous access Ziyad Menendez MD [address] [facility] [address] [place] [address] [facility] [address] [place] [address] [employer] Work Phone: [employer] for visit Narrative* Treatment Plan and Therapy Plan (Routine) Status Reason Specialty Diagnoses / Procedures Referred By Contact Referred To Contact Authorized Diagnoses Malignant neoplasm of exocervix (HCC) Poor venous access Ziyad Menendez MD [address] [facility] [place] [address] [facility] [address] [place] [address] [employer] Work Phone: [employer] for visit Narrative* Treatment Plan and Therapy Plan (Routine) - Pending Review Specialty Diagnoses / Procedures Referred By Lisa french Referred To Contact Diagnoses Poor venous access Other specified complication of vascular prosthetic devices, implants and grafts, initial encounter (HCC) Herminia Case MD [address] [place] [address] [facility] [address] [place] [address] Referral ID Status Reason Start Date Expiration Date V isits Requested Visits Authorized [id number] Pending Review 08/06/2021 08/06/2022 1 1 [facility] Work Phone: Discharge Instructions * Pharmacy* Estee Pantoja RPH - 08/03/2019 8:17 AM EDT * Additional Instructions* Freddy Fields MD - 08/04/2019 COPD SIGNS AND SYMPTOMS GREEN ZONE: All Clear- Your Symptoms Are Under Control Able to do usual activities Usual amounts of cough and phlegm/mucus No chest pain Your usual medications are controlling your symptoms This Means You Should: Continue taking your medications as prescribed Continue activity as tolerated Keep all doctor appointments Avoid smoking and exposure to strong chemical odors YELLOW ZONE: Caution as Your Health may be Worsening Increased cough and/or sputum production Increased shortness of breath with usual activity Increase in the amount of quick relief medications needed Increased fatigue or restlessness Poor sleep and symptoms waking you up Uneasy feeling or that something is wrong This Means You Should: Call your doctor for further instructions HERMINIA CASE MD [phone] RED ZONE: Medical Alert Severe or unrelieved shortness of breath at rest Unrelieved chest pain Not able to do any activity because of breathing Not able to sleep because of breathing Confusion or you can't think clearly This Means You Should Call 911 Immediately documented in this encounter* Attachments The following attachments cannot be sent through Care Everywhere. * Compression Fracture: Spine ([place]) documented in this encounter* Instructions* Ankit Zaragoza MD - 10/27/2019 Keep your appointment for magnetic resonance imaging and PET scan as scheduled. In addition to Percocet, I prescribed a laxative if needed. Let your doctor know you have had increased pain and are needing more than prescribed Percocet, and therefore ran out early. documented in this encounter* Instructions* Brandy Del Real RN - 11/05/[address] [facility] Information folder on the day of surgery. Please derrick the last dose taken (date and time ) on your Daily Medications List provided in your After Visit Summary. Please bring a photo ID and insurance information Do NOT take the following medications on the morning of surgery: Vitamins TAKE the following medications the morning of your surgery: Inhalers, WELLBUTRIN You may take your prescription pain medications. You may take Tylenol (Acetaminophen) if needed forpain. No Motrin, Ibuprofen, or Advil 24 hours prior to surgery, or longer if instructed by your surgeon. No Aleve or Naprosyn 3 days prior to surgery, or longer if instructed by your surgeon. If you are on BLOOD THINNERS or ASPIRIN Additional instruction: NONE You will receive a reminder call the day before surgery with your Same Day Surgery arrival time. If you have specific questions, please call your surgeon. * Attachments The following attachments cannot be sent through Care Everywhere. * Hysterectomy: Abdominal: Pre-op ([place]) * Oophorectomy: Pre-op ([place]) documented in this encounter* Instructions* Tani Joseph MD - 11/09/2019 Come back tomorrow for your ultrasound. If you have any chest pain or shortness of breath return tot emergency department immediately * Attachments The following attachments cannot be sent through Care Everywhere. * Edema: Leg and Ankle ([place]) documented in this encounter* Instructions* Jaspreet Lam RN - 12/19/2019 SEDATION / ANALGESIA INFORMATION / HOME GOING ADVICE You have received the sedation/analgesia medication during your visit Sedation/analgesia is used during short medical procedures under controlled supervision. The medication will produce a strong relaxation. You will be able to hear, speak and follow instructions, but your memory and alertness will be decreased. You will be able to swallow and breathe on your own. During sedation/analgesia your blood pressure,heart and breathing will be watched closely. After the procedure, you may not remember what was said or done. You may have the following effects from the medication. Drowsiness, dizziness, sleepiness or confusion. Difficulty remembering or delayed reaction times. Loss of fine muscle control or difficulty with your balance especially while walking. Difficulty focusing or blurred vision. You may not be aware of slight changes in your behavior and/or your reaction time because of the medication used during the procedure. Therefore you should follow these instructions. Have someone responsible help you with your care. Do not drive for 24 hours. Do not operate equipment for 24 hours ([employer], [employer] tools, kitchen accessories, stove). Do not drink any alcoholic beverages for a minimum of 24 hours. Do not make important personal, legal or business decisions for 24 hours. You may experience dizziness or lightheadedness. Move slowly and carefully, do not make sudden position changes. Drink extra amounts of fluids today. Increase your diet as tolerated (unless you have received specific instructions from your doctor). If you feel nauseated, continue with liquids until the nausea is gone. Notify your physician if you have not urinated within 8 hours after the procedure. Resume your medications unless otherwise instructed. Contact your physician if you have any questions or concerns. You may contact Special Procedures at with any questions or concerns. After hours (before 7 am and after 5 pm) call and ask for the Interventional Radiologist internal combustion engine inspector. IF YOU REPORT TO AN EMERGENCY ROOM, DOCTOR'S OFFICE OR HOSPITAL WITHIN 24 HOURS AFTER YOUR PROCEDURE, BRING THIS SHEET AND YOUR AFTER VISIT SUMMARY WITH YOU AND GIVE IT TO THE PHYSICIAN OR NURSE ATTENDING YOU.Implanted Port: What to Expect at Home Your Recovery Questions: [phone] You have had a procedure to implant a port. The port looks like a small bump under your skin. A thin, flexible tube called a catheter runs under the skin from the port into a large vein. You may have the port for weeks, months, or longer. You will be able to get medicine, blood, nutrients, or other fluids with more comfort. The port can be used right away. You will probably have some discomfort and bruising at the port site. This will go away in a few days. You may have strips of tape on the cut (incision) the doctor made, or the cut may have been closed with glue. It will be covered with a small bandage. This care sheet gives you a general idea about how long it will take for you to recover. But each person recovers at a different pace. Follow the steps below to feel better as quickly as possible. How can you care for yourself at home? Activity Avoid arm and upper body movements that may pull on the catheter. These movements include heavy weight lifting and vigorous use of your arms. No lifting over 5 pounds on the side with the port for 7 days. Check with your doctor as to when you may swim or exercise. You may drive 24 hours after the port placement. It's okay if the seat belt lays over the insertionsite. Medicines Your doctor will tell you if and when you can restart your medicines. He or she will also give you instructions about taking any new medicines. If you take blood thinners, such as warfarin (Coumadin), clopidogrel (Plavix), Apixaban (Eliquis), Dabigatran (Pradaxa), Rivaroxaban (Xarelto), or aspirin, be sure to talk to your doctor. He or she will tell you if and when to start taking those medicines again. Make sure that you understand exactly what your doctor wants you to do. Take pain medicines exactly as directed. If the doctor gave you a prescription medicine for pain, take it as prescribed. If you are not taking a prescription pain medicine, you may take Tylenol as directed. If you think your pain medicine is making you sick to your stomach: Take your medicine after meals (unless your doctor has told you not to). Ask your doctor for a different pain medicine. Incision care Remove the bandage the day after it has been placed to inspect the incision site. Replace with large bandaid or dressing. You will need to keep site clean & dry for 48 hours. After 48 hours days,you may shower and may wash the area with soap and water and pat it dry. Don't use hydrogen peroxide or alcohol, which can slow healing. You may cover the area with a gauze bandage if it weeps or rubs against clothing. Change the bandage every day for 7-10 days until healed. If you have strips of tape on the cut (incision) the doctor made, leave the tape on for a week or until it falls off. Use ice pack for the next 24 hours. On for 30 minutes, and off for 30 minutes. If you find relief with the use of the ice pack, you may continue to use it as needed. Other instructions Always carry the medical alert card that your doctor gives you. It contains information about your port. It will tell health care workers you have a port in case you need emergency care. Wear loose clothing over the port for the first 10 to 14 days. When getting dressed, be careful notto rub the port. Follow-up care is a cardenas part of your treatment and safety. Be sure to make and go to all appointments, and call your doctor if you are having problems. It's also a good idea to know your test resultsand keep a list of the medicines you take. When should you call for help? Call [phone] anytime you think you may need emergency care. For example, call if: You passed out (lost consciousness). You have severe trouble breathing. You have sudden chest pain and shortness of breath, or you cough up blood. Call your doctor now or seek immediate medical care if: You have signs of infection, such as: Increased pain, swelling, warmth, or redness near the port. Red streaks leading from the port. Pus draining from the port. A fever. You have pain or swelling in your neck or arm. You have trouble breathing or chest pain. Watch closely for changes in your health, and be sure to contact your doctor if: You have any problems with your port. You may call Special Procedures at with any questions or concerns about the port placement. After hours (before 7am or after 5 pm) call [phone] and ask for the Interventional Radiologist internal combustion engine inspector. Where can you learn more? Go to [email or web address] and sign in to your [employer] account. Enter M256 in the Search Health Information box to learn more about Implanted Port: What to Expect at Home. If you do not have an account, please click on the "Sign Up Now" link. Current as of: August 15, 2015 Content Version: 11.2 0510-4839 [employer]. Care instructions adapted under license by [employer]. If youhave questions about a medical condition or this instruction, always ask your healthcare professional. [employer] disclaims any warranty or liability for your use of this information. documented in this encounter* Attachments The following attachments cannot be sent through Care Everywhere. * COPD: General Info ([place]) * Bronchitis ([place]) documented in this encounter* Discharge Instr - Activity* Suzanna Concepcion RN - 11/23/2019 12:35 PM EDT As tolerated * Discharge Instr - Diet* Suzanna Concepcion RN - 11/23/2019 12:34 PM EDT ? Good nutrition is important when healing from an illness, injury, or surgery. Follow any nutrition recommendations given to you during your hospital stay. ? If you were given an oral nutrition supplement while in the hospital, continue to take this supplement at home. You can take it with meals, in-between meals, and/or before bedtime. These supplements can be purchased at most local grocery stores, pharmacies, and chain [employer]-stores. ? If you have any questions about your diet or nutrition, call the hospital and ask for the dietitian. General * Discharge Instr - Other Orders* Jessica Tubbs RN - 11/22/2019 1:27 PM EDT Your physician has ordered skilled home care services for you. Your home care will be provided by: [facility] [phone] * Attachments The following attachments cannot be sent through Care Everywhere. * Ischemic Stroke: General Info ([place]) documented in this encounter History of Present Illness * Phillip Snyder RCP - 08/04/2019 1:28 PM EDT [facility] Department Progress Note SpO2 at rest on RA = 90 HR at rest = 86 SpO2 with ambulation on RA = 87 Peak HR = 108 Distance Walked = 100ft Recovery SpO2 with ambulation = 90 with 2 lpm Recovery HR = 96 Recovery SpO2 with 4 lpm with ambulation (if needed) = 95% Patient has home oxygen 3 lpm 4lpm for exertion Qualify for home O2 Y/N = Yes Patient mobile at home Y/N = Yes * Fely Carrasco - 08/04/2019 8:35 AM EDT Nutrition rescreen completed. Patient assigned a level 1. * Roland Ortiz DO - 08/03/2019 1:55 PM EDT Hospitalist Progress Note 08/03/2019 2:56 PM [phone]: Please page me ([phone]) for patient care issues. [phone]: Please page [facility] night Hospitalist for any issues. Subjective: Admit Date: 08/02/2019 PCP: HERMINAI CASE MD Room#: 458/4582 Interval History: No overnight issues. Feels better. Denies chest pain, sob, abdominal pain, nausea, vomiting, diarrhea, constipation, fevers, or chills. DIET GENERAL; Patient Vitals for the past 96 hrs (Last 3 readings): Weight 08/02/19 2051 140 lb (63.5 kg) 08/02/19 1733 140 lb (63.5 kg) 24HR INTAKE/OUTPUT: Intake/Output Summary (Last 24 hours) at 08/03/2019 1456 Last data filed at 08/03/2019 0540 Gross per 24 hour Intake 1050 ml Output 551 ml Net 499 ml Past Medical History: Diagnosis Date Abnormal stress test Allergic rhinitis Arthritis Asthma Bronchitis Cancer (HCC) skin Chest pain COPD (chronic obstructive pulmonary disease) (HCC) USE OXYGEN 3 L AT NIGHT DDD (degenerative disc disease), cervical Defect, retina, with detachment right DJD (degenerative joint disease), lumbar Emphysema lung (HCC) Former smoker Hematuria SCHEDULED FOR THE PROCEDURE /SURGERY ON 02/11/2017 Hypokalemia Lung nodules Osteoporosis Palpitations Pneumonia Recurrent major depression (HCC) Sciatica Thoracic compression fracture (HCC) Vitamin D deficiency Medications: methylPREDNISolone 40 mg Intravenous Q8H azithromycin 500 mg Oral Daily cefTRIAXone (ROCEPHIN) IV 1 g Intravenous Q24H buPROPion 50 mg Oral Daily gabapentin 100 mg Oral BID montelukast 10 mg Oral Nightly sertraline 200 mg Oral Daily traZODone 50 mg Oral Nightly LABS: CBC: Recent Labs 08/02/19175608/03/19518 WBC 12.6* 10.8* RBC 3.98 3.79* HGB 12.5 11.9 HCT 37.5 35.8 MCV 94.3 94.5 RDW 14.1 14.0 PLT 196 180 BMP: Recent Labs 08/02/19175608/03/19518 NA 139 134* K 3.5 3.7 CL 101 99 CO2 26 28 BUN 9 11 CREATININE 0.61 0.49* GLUCOSE 118* 185* CALCIUM 8.7 8.2* ANIONGAP 11 8 LIVER PROFILE:No results for input(s): AST, ALT, BILITOT, ALKPHOS, LABALBU, PROT in the last 72 hours. PT/INR: No results for input(s): PROTIME, INR in the last 72 hours. CARDIAC ENZYMES: Recent Labs 08/02/191756 TROPONINI <0.012 Procalcitonin: Lab Results Component Value Date PROCAL 0.56 04/10/2017 Objective: Vitals: BP 123/66 Pulse 69 Temp 98.1 F (36.7 C) (Temporal) Resp 18 Ht 5' 5" (1.651 m) Wt 140 lb (63.5 kg) SpO2 99% BMI 23.30 kg/m Pulse Ox: SpO2 Av.9 % Min: 94 % Max: 99 % Supplemental O2: O2 Flow Rate (L/min): 3 L/min General appearance: No apparent distress, appears stated age and cooperative with exam HEENT: Normal cephalic, atraumatic without obvious deformity. Pupils equal, round, and reactive to light. Extra ocular muscles intact. Conjunctivae/corneas clear. Neck: Supple, with full range of motion. No jugular venous distention. Trachea midline. No lymphadenopathy. Respiratory: Normal respiratory effort. Clear to auscultation, bilaterally without Rales/Wheezes/Rhonchi. Cardiovascular: Regular rate and rhythm with normal S1/S2 without murmurs, rubs or gallops. Abdomen: Soft, non-tender, non-distended with normal bowel sounds. No rebound or guarding. Musculoskeletal: No clubbing, cyanosis or edema bilaterally. Full range of motion without deformity. Skin: Skin color, texture, turgor normal. No rashes or lesions. Neurologic: Neurovascularly intact without any focal sensory/motor deficits. Cranial nerves: II-XIIintact, grossly non-focal. Assessment 1. B/L CAP 2. AE COPD/asthma 3. Chronic pain 4. Vit D deficiency 5. Depression 6. COVID-19 negative Plan -adjust abx per ID stewardship team recs -oxygen/duonebs/IV steroids -am labs, replace lytes prn -increase activity -DVT prophylaxis: [x] Lovenox [] Heparin [] SCDs [x] Encourage ambulation [] Already on Anticoagulation Advance Directive: Full Code Discharge planning: possible discharge sometime over the weekend if continues to improve Roland Ortiz DO Division of Hospitalist Medicine Inpatient Medical Services PAGER: [phone] documented in this encounter* Brandy Del Real RN - 11/05/2019 12:30 PM EDT Labs obtained on 1st attempt with 22 gauge needle at LAC site. Patient tolerated well, site benign. documented in this encounter* Jaspreet Lam RN - 12/19/2019 1:56 PM EDT IR Procedures: This patient is here through [facility] for a Med Port placement . She verbalizes understanding of the procedural instructions. Dr. Griffith has spoken to her. History, allergies, medications andlab results reviewed. Informed consent signed. Prepped and draped in sterile fashion. Time out was performed. She is on a monitor. Tolerated the procedure well under conscious sedation. She is in no distress. Med Port pocket left chest is sutures closed, sutures are intact. Covaderm Dressing is intact, no bleeding, no hematoma. Report called to [facility]. Transfer back to [facility]. documented in this encounter* Imtiaz Mckeon RN - 01/17/2020 11:30 AM EDT Arrival Note Patient is here for port flush and lab draw. Labs were drawn via port. 1200: Ordered treatment completed. Patient discharged without any issues. Patient has a copy of next infusion appointment and verbalizes understanding. All questions answered. documented in this encounter* Sally Rocha RN - 01/24/2020 9:00 AM EST Pt here for labs from port. Completed using hospital policy. Ordered treatment completed. Patient discharged without any issues. Patient has a copy of next infusion appointment and verbalizes understanding. All questions answered. documented in this encounter* Estee Aguero RN - 01/25/2020 3:08 PM EST Ordered treatment completed. Patient discharged without any issues. Patient has a copy of next infusion appointment and verbalizes understanding. All questions answered. * Estee Aguero RN - 01/25/2020 9:30 AM EST Arrival Note Patient is here for chemotherapy. Labs were not ordered, obtained yesterday. documented in this encounter* Tigist Gee RN - 01/31/2020 2:00 PM EST Pt here for lab draw, CBCdiff/CMP/Mag from port to [facility]. Pt just came from office visit with Woody FELIX. Denies any questions or concerns today, pt has an up to date calendar and is aware of her chemo appt tomorrow. documented in this encounter* Estee Aguero RN - 02/01/2020 2:36 PM EST Ordered treatment completed. Patient discharged without any issues. Patient has a copy of next infusion appointment and verbalizes understanding. All questions answered. * Estee Aguero RN - 02/01/2020 8:30 AM EST Arrival Note Patient is here for chemotherapy. Labs were not ordered, obtained yesterday. documented in this encounter* Imtiaz Mckeon RN - 02/07/2020 10:13 AM EST Arrival Note Patient is here for port flush and lab draw. Labs were drawn via venipuncture due to port without blood return. Labs drawn for chemo treatment tomorrow. Cathflo instilled. documented in this encounter* Estee Aguero RN - 02/08/2020 2:30 PM EST Ordered treatment completed. Patient discharged without any issues. Patient has a copy of next infusion appointment and verbalizes understanding. All questions answered. * Estee Aguero RN - 02/08/2020 9:00 AM EST Arrival Note Patient is here for chemotherapy. Labs were not ordered, obtained yesterday. documented in this encounter* Tonia Sanchez RN - 02/21/2020 3:00 PM EST CBC with diff, CMP and Mag drawn via port to CCL. Tolerated well. documented in this encounter* Estee Aguero RN - 02/22/2020 2:42 PM EST Ordered treatment completed. Patient discharged without any issues. Patient has a copy of next infusion appointment and verbalizes understanding. All questions answered. * Estee Aguero RN - 02/22/2020 9:00 AM EST Arrival Note Patient is here for chemotherapy. Labs were not ordered, obtained yesterday all within limits for treatment. documented in this encounter* Leola Ashraf RCP - 11/23/2019 9:58 PM EDT Patient was offered nebulizer treatment at this time, wheeze auscultated RUL. Patient declined/refused at this time. * Aparna Walter APRN - [place] - 11/23/2019 12:00 PM EDT Hospitalist Progress Note 11/23/2019 6:27 PM Subjective: Admit Date: 11/21/2019 PCP: HERMINIA CASE MD Room#: [id number] Interval History: c/o feeling very anxious. Doesn't want to have MRI done bc she is claustrophobic.Feels like she is getting stronger. Denies chest pain, sob, abdominal pain, nausea, vomiting, diarrhea, constipation, fevers, or chills. DIET GENERAL; Dietary Nutrition Supplements: Low Calorie High Protein Supplement Patient Vitals for the past 96 hrs (Last 3 readings): Weight 11/21/19 2135 156 lb (70.8 kg) 11/21/19 1552 150 lb (68 kg) Medications: clonazePAM 0.5 mg Oral Daily fluticasone 2 spray Nasal BID mometasone-formoterol 2 puff Inhalation BID tiotropium 18 mcg Inhalation Daily buPROPion 150 mg Oral Daily sertraline 200 mg Oral Daily montelukast 10 mg Oral Nightly sodium chloride flush 10 mL Intravenous 2 times per day atorvastatin 40 mg Oral Nightly aspirin 81 mg Oral Daily Or aspirin 300 mg Rectal Daily enoxaparin 40 mg Subcutaneous Daily LABS: CBC: Recent Labs 11/21/19 1559 11/22/19 0122 11/23/19 0144 WBC 6.8 8.9 7.3 RBC 3.63* 3.15* 3.24* HGB 11.0* 9.6* 9.9* HCT 34.5* 29.9* 30.5* MCV 95.1 94.9 94.3 RDW 14.0 13.8 13.7 PLT 438 380 366 BMP: Recent Labs 11/21/19 1559 11/22/19 0122 11/23/19 0144 NA 141 140 136 K 3.4* 3.1* 4.0 CL 100 103 101 CO2 37* 33* 31* BUN 12 11 12 CREATININE 0.66 0.54 0.55 GLUCOSE 93 99 87 CALCIUM 9.1 8.3* 8.6 ANIONGAP 4 4 3 LIVER PROFILE: Recent Labs 11/21/19 1559 11/22/19 0122 AST 37 52* ALT 23 20 BILITOT 0.1* 0.2 ALKPHOS 96 77 LABALBU 3.3* 2.8* PROT 6.3 5.4* PT/INR: Recent Labs 11/21/19 155 PROTIME 10.1 INR 1.0 CARDIAC ENZYMES: Recent Labs 11/21/19 1559 TROPONINI <0.012 Procalcitonin: Lab Results Component Value Date PROCAL 0.56 04/10/2017 Objective: Vitals: BP 118/76 Pulse 85 Temp 97.7 F (36.5 C) (Temporal) Resp 18 Ht 5' 5" (1.651 m) Wt 156 lb (70.8 kg) SpO2 98% BMI 25.96 kg/m Pulse Ox: SpO2 Av.5 % Min: 92 % Max: 98 % Supplemental O2: O2 Flow Rate (L/min): 3 L/min General appearance: No apparent distress, but anxious HEENT: Normal cephalic, atraumatic without obvious deformity. Neck: Supple Respiratory: Normal respiratory effort; diminished Cardiovascular: Regular rate and rhythm with normal S1/S2 Abdomen: Soft, non-tender, non-distended with normal bowel sounds Musculoskeletal: No clubbing, cyanosis or edema bilaterally Skin: Skin color, texture, turgor normal. No rashes or lesions. Neurologic: Mild right upper extremity weakness Assessment/Plan 1. Acute right sided weakness, concern for acute stroke per Neurology. EEG done; awaiting results. Pt refusing MRI. Will get carotid US. Continue ASA/statin 2. Mild Right LE swelling, US neg for DVT 3. COPD, chronic respiratory failure: compensated ; continue home meds 4. Recent radical hyster, ARIANA, b/l salpingo-oophorectomy and pelvic LN dissection due to cervical CA: f/u Dr. Menendez as an outpt 5. Hypokalemia, replacement ordered 6. Anxiety, Hydroxyzine PRN -am labs, replace lytes prn -increase activity -DVT prophylaxis: [x] Lovenox [] Heparin [] SCDs [x] Encourage ambulation [] Already on Anticoagulation Advance Directive: Full Code Discharge planning: TBD Division of Hospitalist Medicine Inpatient Medical Services * Jennifer Esparza, PT - 11/23/2019 11:46 AM EDT Physical Therapy Facility/Department: [facility] Initial Assessment NAME: Gonzalo Deluca : 1955 Date of Service: 11/23/2019 Discharge Recommendations: Home with assist PRN PT Equipment Recommendations Equipment Needed: No Assessment Assessment: EVAL ONLY. Pt presents at her functional baseline and is independent without a device for mobility. Pt reports no concerns for home going and has no further acute PT needs. Pt has been upat radha in room this admissison. Prognosis: Good Decision Making: Low Complexity History: Pt admitted with RUE numbness/tingling/weakness, CT negative and MRI pending. Exam: AM-PAC Clinical Presentation: Pt admitted with RUE numbness/tingling/weakness, CT negative and MRI pending. Pt has medical history as indicated above that contributes to her clinical presentation. Pt presents at her functional baseline and is independent without a device for mobility. No acute PT needs identified. PT Education: Goals;PT Role;Plan of Care;General Safety Barriers to Learning: Pt has no noted barriers to learning. No Skilled PT: At baseline function REQUIRES PT FOLLOW UP: No Activity Tolerance Activity Tolerance: Patient Tolerated treatment well Patient Diagnosis(es): The encounter diagnosis was Right arm weakness. has a past medical history of Abnormal stress test, Allergic rhinitis, Arthritis, Asthma, Bronchitis, Cancer (HCC), Cervical cancer (HCC), Chest pain, COPD (chronic obstructive pulmonary disease) (HCC), DDD (degenerative disc disease), cervical, Defect, retina, with detachment, DJD (degenerative joint disease), lumbar, Emphysema lung (HCC), Former smoker, Hematuria, Hypokalemia, Lung nodules, Osteoporosis, Palpitations, Pneumonia, Recurrent major depression (HCC), Sciatica, Thoracic compressionfracture ([facility]), and Vitamin D deficiency. has a past surgical history that includes eye surgery; Tubal ligation; Cystoscopy (01/12/2017); Cystocopy (02/11/2017); and Hysterectomy (11/06/2019). Restrictions Restrictions/Precautions Restrictions/Precautions: General Precautions, Fall Risk(3L O2, tele) Required Braces or Orthoses?: No Vision/Hearing Vision: Within Functional Limits Vision Exceptions: Wears glasses at all times Hearing: Within functional limits Subjective General Chart Reviewed: Yes Patient assessed for rehabilitation services?: Yes Family / Caregiver Present: No General Comment Comments: Per RN patient okay for therapy. Co-eval with OT. Subjective Subjective: Pt pleasant and agreeable to therapy. Pain Screening Patient Currently in Pain: Yes Pain Assessment Pain Assessment: 0-10 Pain Level: 6 Pain Type: Chronic pain Pain Location: Abdomen;Back Pain Orientation: Right Pain Descriptors: Aching;Constant Pain Frequency: Continuous Clinical Progression: Not changed Non-Pharmaceutical Pain Intervention(s): Ambulation/Increased Activity;Repositioned(RN notified) Response to Pain Intervention: Patient Satisfied Vital Signs Patient Currently in Pain: Yes Orientation Orientation Overall Orientation Status: Within Normal Limits Social/Functional History Social/Functional History Lives With: Daughter Type of Home: House Home Layout: One level Home Access: Stairs to enter without rails Entrance Stairs - Number of Steps: 1 Bathroom Shower/Tub: Tub/Shower unit, Shower chair with back Bathroom Toilet: Standard Bathroom Equipment: Shower chair, Grab bars in shower Bathroom Accessibility: Accessible Home Equipment: Oxygen, Rolling walker(2-3 lit Nc O2) Receives Help From: Family ADL Assistance: Independent Homemaking Assistance: Independent Homemaking Responsibilities: Yes Ambulation Assistance: Independent(no device) Transfer Assistance: Independent Active Linotyper: Yes Mode of Transportation: Car Occupation: On disability Cognition Cognition Overall Cognitive Status: WFL Objective Observation/Palpation Posture: Good Observation: tele and 3L O2 intact AROM RLE (degrees) RLE AROM: WFL AROM LLE (degrees) LLE AROM : WFL Strength RLE Comment: demonstrates >3/5 with mobility Strength LLE Comment: demonstrates >3/5 with mobility Sensation Overall Sensation Status: Impaired(Pt c/o residual tingling in R forearm and hand, intact to pressure and light touch) Bed mobility Supine to Sit: Independent Sit to Supine: Independent Scooting: Independent Comment: Denies dizziness with positional changes. Transfers Sit to Stand: Modified independent(to no device from EOB, no LOB, denies dizziness) Stand to sit: Modified independent Ambulation Ambulation?: Yes Ambulation 1 Surface: level tile Device: No Device Other Apparatus: O2 Assistance: Modified Independent Quality of Gait: Pt demonstrates reciprocal stepping pattern with B foot clearance, no LOB, occasional lateral path deviations, no LOB Distance: 60 ft x 1 Comments: Pt able to manage O2 line and tank within room as well this session. Pt denies concerns for home going and reports she is at her baseline. Stairs/Curb Stairs?: No(Declines need to complete prior to home going and reports no concerns for completing athome.) Balance Posture: Good Sitting - Static: Good Sitting - Dynamic: Good Standing - Static: Good Standing - Dynamic: Fair;+ Plan Plan Times per week: EVAL ONLY Plan Comment: Goals and/or treatment plan were established in collaboration with patient. Safety Devices Type of devices: All fall risk precautions in place, Call light within reach, Gait belt, Patient atrisk for falls, Left in bed, Nurse notified -[facility] Score [facility] Inpatient Mobility Raw Score : 21 (11/23/19 114) [facility] Inpatient T-Scale Score : 50.25 (11/23/19 114) Mobility Inpatient [facility] 0-100% Score: 28.97 (11/23/19 114) Mobility Inpatient [facility] G-Code Modifier : CJ (11/23/191140) [facility] Mobility Inpatient How much difficulty turning over in bed?: None How much difficulty sitting down on / standing up from a chair with arms?: None How much difficulty moving from lying on back to sitting on side of bed?: None How much help from another person moving to and from a bed to a chair?: None How much help from another person needed to walk in hospital room?: None How much help from another person for climbing 3-5 steps with a railing?: Total [facility] Inpatient Mobility Raw Score : 21 AM-PAC Inpatient T-Scale Score : 50.25 Mobility Inpatient CMS 0-100% Score: 28.97 Mobility Inpatient CMS G-Code Modifier : CJ Goals Short term goals Time Frame for Short term goals: EVAL ONLY Patient Goals Patient goals : Pt states she wants to get home Therapy Time Individual Concurrent Group Co-treatment Time In 1001(co-eval with OT) Time Out 1015 Minutes 14 Jennifer Esparza, PT * Catalina Graff OT - 11/23/2019 11:41 AM EDT Occupational Therapy Occupational Therapy Initial Assessment Date: 11/23/2019 Patient Name: Gonzalo Deluca : 1955 Date of Service: 11/23/2019 Discharge Recommendations: Home with assist PRN Assessment Assessment: EVAL ONLY: Pt was and continues to be functionally independent in ADLs, functional transfers and mobility; pt with no concerns in returning home and pt with no acute OT needs. Prognosis: Good Decision Making: Low Complexity History: Pt admitted with RUE numbness/tingling/weakness, CT negative and MRI pending. Exam: AM-PAC Assistance / Modification: mod I OT Education: OT Role;Plan of Care Barriers to Learning: none No Skilled OT: Independent with functional mobility;Independent with ADL's;At baseline function;Safe to return home;No OT goals identified REQUIRES OT FOLLOW UP: No Activity Tolerance Activity Tolerance: Patient Tolerated treatment well Safety Devices Safety Devices in place: Yes Type of devices: All fall risk precautions in place;Call light within reach;Gait belt;Patient at risk for falls;Nurse notified;Left in bed Patient Diagnosis(es): The encounter diagnosis was Right arm weakness. has a past medical history of Abnormal stress test, Allergic rhinitis, Arthritis, Asthma, Bronchitis, Cancer ([facility]), Cervical cancer ([facility]), Chest pain, COPD (chronic obstructive pulmonary disease) ([facility]), DDD (degenerative disc disease), cervical, Defect, retina, with detachment, DJD (degenerative joint disease), lumbar, Emphysema lung ([facility]), Former smoker, Hematuria, Hypokalemia, Lung nodules, Osteoporosis, Palpitations, Pneumonia, Recurrent major depression ([facility]), Sciatica, Thoracic compressionfracture (HCC), and Vitamin D deficiency. has a past surgical history that includes eye surgery; Tubal ligation; Cystoscopy (01/12/2017); Cystocopy (02/11/2017); and Hysterectomy (11/06/2019). Restrictions Restrictions/Precautions Restrictions/Precautions: General Precautions, Fall Risk(3L O2, tele) Required Braces or Orthoses?: No Subjective General Chart Reviewed: Yes Patient assessed for rehabilitation services?: Yes Family / Caregiver Present: No Subjective Subjective: Pt pleasant and cooperative. General Comment Comments: Per RN ok for pt to participate in OT eval. Patient Currently in Pain: Yes Pain Assessment Pain Assessment: 0-10 Pain Level: 6 Pain Type: Chronic pain Pain Location: Abdomen;Back Pain Orientation: Right Pain Descriptors: Aching;Constant Pain Frequency: Continuous Clinical Progression: Not changed Non-Pharmaceutical Pain Intervention(s): Ambulation/Increased Activity;Repositioned(RN notified) Response to Pain Intervention: Patient Satisfied Vital Signs Temp: 97.1 F (36.2 C) Temp Source: Temporal Pulse: 87 Heart Rate Source: Monitor Resp: 18 BP: 128/80 BP Location: Left Arm MAP (mmHg): 96 Patient Position: Supine Patient Currently in Pain: Yes Oxygen Therapy SpO2: 95 % O2 Device: Nasal cannula O2 Flow Rate (L/min): 3 L/min Social/Functional History Social/Functional History Lives With: Daughter Type of Home: House Home Layout: One level Home Access: Stairs to enter without rails Entrance Stairs - Number of Steps: 1 Bathroom Shower/Tub: Tub/Shower unit, Shower chair with back Bathroom Toilet: Standard Bathroom Equipment: Shower chair, Grab bars in shower Bathroom Accessibility: Accessible Home Equipment: Oxygen, Rolling walker(2-3 lit Nc O2) Receives Help From: Family ADL Assistance: Independent Homemaking Assistance: Independent Homemaking Responsibilities: Yes Ambulation Assistance: Independent(no device) Transfer Assistance: Independent Active Linotyper: Yes Mode of Transportation: Car Occupation: On disability Objective Vision: Within Functional Limits Vision Exceptions: Wears glasses at all times Hearing: Within functional limits Observation/Palpation Posture: Good Observation: tele and 3L O2 intact Balance Sitting Balance: Independent Standing Balance: Modified independent (static/dynamic standing with no device) Functional Mobility Functional - Mobility Device: No device Activity: To/from bathroom(x2 trials) Assist Level: Modified independent Functional Mobility Comments: Pt ambulated with mod I with and without managing O2 line with no LOBnoted, however, with lateral path deviations. ADL Feeding: Independent Grooming: Modified independent UE Bathing: Modified independent LE Bathing: Modified independent UE Dressing: Modified independent LE Dressing: Modified independent Toileting: Modified independent Coordination Movements Are Fluid And Coordinated: Yes Bed mobility Supine to Sit: Independent Sit to Supine: Independent Scooting: Independent Comment: Denied dizziness with changes in positioning. Transfers Sit to stand: Modified independent Stand to sit: Modified independent Transfer Comments: with no device Cognition Overall Cognitive Status: WFL Sensation Overall Sensation Status: Impaired(Pt c/o residual tingling in R forearm and hand, intact to pressure and light touch) LUE AROM (degrees) LUE AROM : WFL RUE AROM (degrees) RUE AROM : WFL LUE Strength Gross LUE Strength: WFL L Hand General: 5/5 RUE Strength Gross RUE Strength: WFL R Hand General: 5/5 Plan Plan Plan Comment: POC and goals were made in collaboration with the pt. AM-PAC Score AM-[facility] Inpatient Daily Activity Raw Score: 24 (11/23/191137) AM-PAC Inpatient ADL T-Scale Score : 57.54 (11/23/191137) ADL Inpatient CMS 0-100% Score: 0 (11/23/191137) ADL Inpatient CMS G-Code Modifier : CH (11/23/191137) Therapy Time Individual Concurrent Group Co-treatment Time In 1001(co-eval with PT) Time Out 1015 Minutes 14 Catalina Graff OT * Dayana Roman PT - 11/22/2019 2:59 PM EDT Physical Therapy Facility/Department: [facility] 4S TELEMETRY Initial Assessment NAME: Gonzalo Deluca : 1955 Date of Service: 11/22/2019 Chart reviewed. Pt is currently off the floor at MRI. Will continue to follow and re-attempt as appropriate. Dayana Roman PT, DPT * Stacie Granados OT - 11/22/2019 2:59 PM EDT Occupational Therapy Occupational Therapy Initial Assessment Date: 11/22/2019 Patient Name: Gonzalo Deluca : 1955 Date of Service: 11/22/2019 OT garrettal attempted this PM, however pt currently off floor for MRI. Will continue to follow and attempt assessment as appropriate. Stacie Granados OT * Aparna Walter, LAMINATING PRESS OPERATOR - AN/SSN 2 4 OPERATOR - 11/22/2019 2:07 PM EDT Hospitalist Progress Note 11/22/2019 2:07 PM Subjective: Admit Date: 11/21/2019 PCP: HERMINIA CASE MD Room#: 454/4542 Interval History: No overnight issues; feeling much better today; ~95% Denies chest pain, sob, abdominal pain, nausea, vomiting, diarrhea, constipation, fevers, or chills. DIET GENERAL; Dietary Nutrition Supplements: Low Calorie High Protein Supplement Patient Vitals for the past 96 hrs (Last 3 readings): Weight 11/21/19 2135 156 lb (70.8 kg) 11/21/19 1552 150 lb (68 kg) Medications: sodium chloride 50 mL/hr at 11/21/19 2245 LORazepam 0.5 mg Oral Once sodium chloride 250 mL Intravenous Once buPROPion 150 mg Oral Daily sertraline 200 mg Oral Daily montelukast 10 mg Oral Nightly sodium chloride flush 10 mL Intravenous 2 times per day atorvastatin 40 mg Oral Nightly aspirin 81 mg Oral Daily Or aspirin 300 mg Rectal Daily enoxaparin 40 mg Subcutaneous Daily LABS: CBC: Recent Labs 11/21/19 1559 11/22/19 0122 WBC 6.8 8.9 RBC 3.63* 3.15* HGB 11.0* 9.6* HCT 34.5* 29.9* MCV 95.1 94.9 RDW 14.0 13.8 PLT 438 380 BMP: Recent Labs 11/21/19 1559 11/22/19 0122 NA 141 140 K 3.4* 3.1* CL 100 103 CO2 37* 33* BUN 12 11 CREATININE 0.66 0.54 GLUCOSE 93 99 CALCIUM 9.1 8.3* ANIONGAP 4 4 LIVER PROFILE: Recent Labs 11/21/19 1559 11/22/19 0122 AST 37 52* ALT 23 20 BILITOT 0.1* 0.2 ALKPHOS 96 77 LABALBU 3.3* 2.8* PROT 6.3 5.4* PT/INR: Recent Labs 11/21/19 1559 PROTIME 10.1 INR 1.0 CARDIAC ENZYMES: Recent Labs 11/21/19 1559 TROPONINI <0.012 Procalcitonin: Lab Results Component Value Date PROCAL 0.56 04/10/2017 Objective: Vitals: BP 109/69 Pulse 90 Temp 97.7 F (36.5 C) (Temporal) Resp 18 Ht 5' 5" (1.651 m) Wt 156 lb (70.8 kg) SpO2 94% BMI 25.96 kg/m Pulse Ox: SpO2 Av.9 % Min: 94 % Max: 100 % Supplemental O2: O2 Flow Rate (L/min): 3 L/min General appearance: No apparent distress HEENT: Normal cephalic, atraumatic without obvious deformity. Neck: Supple Respiratory: Normal respiratory effort; few wheezes Cardiovascular: Regular rate and rhythm with normal S1/S2 Abdomen: Soft, non-tender, non-distended with normal bowel sounds Musculoskeletal: No clubbing, cyanosis or edema bilaterally Skin: Skin color, texture, turgor normal. No rashes or lesions. Neurologic: Mild right upper extremity weakness Assessment/Plan 1. Acute right sided weakness, concern for acute stroke per Neurology. EEG/MRI. Continue ASA/statin. 2. Mild Right LE swelling, US neg for DVT 3. COPD, chronic respiratory failure: compensated ; resume home meds 4. Recent radical hyster, ARIANA, b/l salpingo-oophorectomy and pelvic LN dissection due to cervical CA: f/u Dr. Menendez as an outpt 5. Hypokalemia, replacement ordered -am labs, replace lytes prn -increase activity -DVT prophylaxis: [x] Lovenox [] Heparin [] SCDs [x] Encourage ambulation [] Already on Anticoagulation Advance Directive: Full Code Discharge planning: TBD Division of Hospitalist Medicine Inpatient Medical Services * Gary Lugo, RD, LD - 11/22/2019 10:40 AM EDT Comprehensive Nutrition Assessment Type and Reason for Visit: Initial, Positive Nutrition Screen Nutrition Recommendations/Plan: 1. Continue with General diet. Encourage consistent meal intake. 2. Initiate vanilla Ensure high protein BID per MNT protocol. Ensure High Protein provides 160 kcals, 16 g protein per serving. May consider changing to higher calorie formula if PO intakes are consistently <50% 3. Please document pt's PO intakes via flowsheet to accurately assess PO intake adequacy. 4. Monitor intakes, wts, and labs. RD will follow. Nutrition Assessment: Pt admit with right arm weakness and slurred speech noted by EMS. MRA head/neck and MRI of the brain pending. METAL SMELTER screened; no diet texture change recommended at this time. PT still reporting that she usually only eats 1 meal/day at home. She also reported this during an RD interview about a year ago. PT reports that her weight has been stable and that she takes ensure at home BID. Pt reports that she usually doesn't get hungry throughout the day. PT had a recent hysterectomy procedure 11/06/19 Malnutrition Assessment: Malnutrition Status: Insufficient data Context: Chronic Illness Findings of the 6 clinical characteristics of malnutrition: Energy Intake: 7 - 75% or less estimated energy requirements for 1 month or longer Weight Loss: No significant weight loss Body Fat Loss: Unable to assess Muscle Mass Loss: Unable to assess Fluid Accumulation: 1 - Mild Extremities(+1-2 RLE Edema) Hotel Controller Strength: Not Performed Estimated Daily Nutrient Needs: Energy (kcal): 9737-6683 kcals; Weight Used for Energy Requirements: [place](57kg) Protein (g): 57-68(1-1.2); Weight Used for Protein Requirements: [place](57kg) Fluid (ml/day): 1710 ml/day or per MD; Weight Used for Fluid Requirements: [place] Nutrition Related Findings: +1-2 RLE edema; K+ 3.1, ca++ 8.3, albumin 2.8 Wounds: Surgical Wound(lower ab surgical incision, BUE bruising) Current Nutrition Therapies: DIET GENERAL; Dietary Nutrition Supplements: Low Calorie High Protein Supplement Anthropometric Measures: Height: 5' 5" (165.1 cm) Current Body Weight: 156 lb (70.8 kg) Admission Body Weight: 156 lb (70.8 kg) Usual Body Weight: 155 lb (70.3 kg)(150-155# in the last month) [place] Body Weight: 125 lbs; % [place] Body Weight 124.8 % BMI: 26 Adjusted Body Weight: ; No Adjustment BMI Categories: Overweight (BMI 25.0-29.9) Nutrition Diagnosis: Inadequate energy intake related to other (comment)(lack of hunger) as evidenced by poor intake prior to admission Nutrition Interventions: Food and/or Nutrient Delivery: Continue Current Diet, Start Oral Nutrition Supplement Nutrition Education/Counseling: No recommendation at this time Coordination of Nutrition Care: Continued Inpatient Monitoring Goals: Pt will receive/tolerate >75% of meals/supplements Nutrition Monitoring and Evaluation: Behavioral-Environmental Outcomes: Beliefs and Attitutes Food/Nutrient Intake Outcomes: Food and Nutrient Intake, Supplement Intake Physical Signs/Symptoms Outcomes: Biochemical Data, GI Status, Nausea or Vomiting, Fluid Status or Edema, Meal Time Behavior, Nutrition Focused Physical Findings, Skin, Weight Discharge Planning: Continue Oral Nutrition Supplement, Continue current diet Contact: [phone] * Amelie Esquivel SLP - 11/22/2019 9:57 AM EDT Speech Language Pathology Patient is on a General diet. Completed speech orders as per stroke protocol. Spoke with pt and completed speech screening. No obvious facial weakness, dysarthria, or language deficits. Amelie Esquivel M.A.CCC/METAL SMELTER Speech-Language Pathologist documented in this encounter* Florencia Torres RN - 06/09/2020 3:30 PM EDT Patient arrived ambulatory for port flush. Port last flushed in February. Patient saw MD prior to arrival. Patient has no complaints and verbalizes understanding of POC. Med port accessed and flusheseasily. No blood return. Patient wishes not to have cathflo today due to time restraints. Wants to be scheduled in [place] for cathflo this week. Pham aware and will call patient to schedule patient.Med port deaccessed and gauze dressing applied. Patient dc home ambulatory. documented in this encounter Assessments Diagnosis Malignant neoplasm of exocervix (HCC) Malignant neoplasm of exocervix Diagnosis Poor venous access Other specified circulatory system disorders Malignant neoplasm of exocervix (HCC) Malignant neoplasm of exocervix Diagnosis PNA (pneumonia) Pneumonia, organism unspecified Diagnosis Compression fracture of lumbar vertebra, initial encounter, unspecified lumbar vertebral level (HCC) Diagnosis Compression fracture of L3 lumbar vertebra, sequela Acute exacerbation of chronic low back pain Diagnosis Pre-op testing Preoperative examination, unspecified Diagnosis Leg swelling Swelling of limb Diagnosis Leg swelling Swelling of limb Diagnosis Malignant neoplasm of exocervix (HCC) Malignant neoplasm of exocervix Diagnosis Malignant neoplasm of exocervix (HCC) Malignant neoplasm of exocervix Poor venous access Other specified circulatory system disorders Diagnosis Malignant neoplasm of exocervix (HCC) Malignant neoplasm of exocervix Diagnosis Malignant neoplasm of exocervix (HCC) Malignant neoplasm of exocervix Lung nodule seen on imaging study Malignant neoplasm of exocervix (HCC)- Primary Malignant neoplasm of exocervix Diagnosis COPD exacerbation (HCC)- Primary Obstructive chronic bronchitis with exacerbation Bronchitis Bronchitis, not specified as acute or chronic Malignant neoplasm of exocervix (HCC)- Primary Malignant neoplasm of exocervix Diagnosis Right arm weakness Other musculoskeletal symptoms referable to limbs Pulmonary emphysema, unspecified emphysema type (HCC) Acute ischemic stroke (HCC) Unspecified cerebral artery occlusion with cerebral infarction Diagnosis Abnormal findings on diagnostic imaging of other specified body structures Abnormal CT of the chest Nonspecific (abnormal) findings on radiological and other examination of other intrathoracic organs Diagnosis Malignant neoplasm of exocervix (HCC)- Primary Malignant neoplasm of exocervix Poor venous access Other specified circulatory system disorders Advance Directives Documents on File Type Date Recorded Patient Bath House Attendant Expl anation Advance Directives and Living Will Power of Pond Supervisor Latest Code Status on File Code Status Date Activated Date Inactivated Comments Full Code 08/03/2019 5:57 PM Full Code 10/17/2018 1:23 AM 10/18/2018 8:29 PM Full Code 06/05/2018 7:30 AM 06/07/2018 7:14 PM Full Code 04/12/2018 9:40 PM 04/14/2018 8:59 PM Full Code 04/10/2017 5:12 AM 04/12/2017 12:51 AM Latest Code Status on File Code Status Date Activated Date Inactivated Comments Full Code 08/03/2019 5:57 PM 08/04/2019 5:09 PM Documents on File Type Date Recorded Patient Bath House Attendant Expl anation ACP-Advance Directive ACP-Power of Pond Supervisor Latest Code Status on File Code Status Date Activated Date Inactivated Comments Full Code 11/06/2019 12:37 PM 11/08/2019 9:35 PM Full Code 11/06/2019 7:02 AM 11/06/2019 12:22 PM Full Code 08/03/2019 5:57 PM 08/04/2019 5:09 PM Full Code 10/17/2018 1:23 AM 10/18/2018 8:29 PM Full Code 06/05/2018 7:30 AM 06/07/2018 7:14 PM Documents on File Type Date Recorded Patient Bath House Attendant Expl anation ACP-Advance Directive ACP-Power of Pond Supervisor Latest Code Status on File Code Status Date Activated Date Inactivated Comments Full Code 11/06/2019 12:37 PM 11/08/2019 9:35 PM Full Code 11/06/2019 7:02 AM 11/06/2019 12:22 PM Full Code 08/03/2019 5:57 PM 08/04/2019 5:09 PM Latest Code Status on File Code Status Date Activated Date Inactivated Comments Full Code 11/21/2019 9:49 PM 11/24/2019 5:06 PM Full Code 11/06/2019 12:37 PM 11/08/2019 9:35 PM Latest Code Status on File Code Status Date Activated Date Inactivated Comments Full Code 11/21/2019 9:49 PM 11/24/2019 5:06 PM Full Code 11/06/2019 12:37 PM 11/08/2019 9:35 PM Latest Code Status on File Code Status Date Activated Date Inactivated Comments Full Code 11/21/2019 9:49 PM Documents on File Type Date Recorded Patient Bath House Attendant Expl anation Advance Directive(s) 09/12/2020 12:26 PM Documents on File Type Date Recorded Patient Bath House Attendant Expl anation Advance Directive(s) 09/12/2020 12:26 PM Latest Code Status on File Code Status Date Activated Date Inactivated Comments Full Code 05/21/2022 5:25 AM 05/24/2022 7:58 PM Latest Code Status on File Code Status Date Activated Date Inactivated Comments Full Code 05/21/2022 5:25 AM 05/24/2022 7:58 PM Latest Code Status on File Code Status Date Activated Date Inactivated Comments Full Code 11/07/2022 9:39 AM 11/08/2022 8:31 PM Code Status History Code Status Date Activated Date Inactivated Comments Full Code 11/06/2022 3:27 PM 11/07/2022 9:39 AM Full Code 05/21/2022 5:25 AM 05/24/2022 7:58 PM Latest Code Status on File Code Status Date Activated Date Inactivated Comments Full Code 02/14/2023 12:41 AM 02/18/2023 10:38 PM Code Status History Code Status Date Activated Date Inactivated Comments Full Code 11/07/2022 9:39 AM 11/08/2022 8:31 PM Full Code 11/06/2022 3:27 PM 11/07/2022 9:39 AM Full Code 05/21/2022 5:25 AM 05/24/2022 7:58 PM Date Activated Date Inactivated Comments 09/20/2023 12:06 AM 09/22/2023 4:42 PM Date Activated Date Inactivated Comments 02/14/2023 12:41 AM 02/18/2023 10:38 PM Date Activated Date Inactivated Comments 11/07/2022 9:39 AM 11/08/2022 8:31 PM Date Activated Date Inactivated Comments 11/06/2022 3:27 PM 11/07/2022 9:39 AM Date Activated Date Inactivated Comments 05/21/2022 5:25 AM 05/24/2022 7:58 PM Documents on File Type Date Recorded Patient Bath House Attendant Expl anation DNR (Do Not Resuscitate) 07/31/2024 3:36 PM [place] DNR Form Date Activated Date Inactivated Comments 07/31/2024 3:36 PM 08/08/2024 7:32 PM Question Answer Comments ICU transfer: Yes Intubation: Yes Date Activated Date Inactivated Comments 07/30/2024 11:13 PM 07/31/2024 3:36 PM Date Activated Date Inactivated Comments 09/20/2023 12:06 AM 09/22/2023 4:42 PM Date Activated Date Inactivated Comments 02/14/2023 12:41 AM 02/18/2023 10:38 PM Date Activated Date Inactivated Comments 11/07/2022 9:39 AM 11/08/2022 8:31 PM Documents on File Type Date Recorded Patient Bath House Attendant Expl anation DNR (Do Not Resuscitate) 07/31/2024 3:36 PM [place] DNR Form Date Activated Date Inactivated Comments 07/31/2024 3:36 PM 08/08/2024 7:32 PM Question Answer Comments ICU transfer: Yes Intubation: Yes Date Activated Date Inactivated Comments 07/30/2024 11:13 PM 07/31/2024 3:36 PM Date Activated Date Inactivated Comments 09/20/2023 12:06 AM 09/22/2023 4:42 PM Date Activated Date Inactivated Comments 02/14/2023 12:41 AM 02/18/2023 10:38 PM Date Activated Date Inactivated Comments 11/07/2022 9:39 AM 11/08/2022 8:31 PM Summary Purpose Family History No Family History Records FoundNo Family History Records FoundNo Family History Records FoundNo Family History Records FoundNo Family History Records FoundNo Family History Records FoundNo Family History Records FoundNo Family History Records Found Reason for Referral Status Reason Specialty Diagnoses / Procedures Referre d By Contact Referred To Contact Open Radiology Diagnoses Leg swelling Procedures US Lower Extremity Venous Right Tani Joseph MD [address] [place] [address] Status Reason Specialty Diagnoses / Procedures Referre d By Contact Referred To Contact Closed Radiology Diagnoses Malignant neoplasm of exocervix (HCC) Procedures XA SPECIAL ANGIOGRAPHY PROCEDURE Ziyad Menendez MD [address] [place] [address], [address] [place] [id number] Status Reason Specialty Diagnoses / Procedures Referre d By Contact Referred To Contact Closed Radiology Diagnoses Malignant neoplasm of exocervix (HCC) Lung nodule seen on imaging study Procedures CT CHEST ABDOMEN PELVIS W CONTRAST Ziyad Menendez MD [address] [facility] [place] [address] Status Reason Specialty Diagnoses / Procedures Referre d By Contact Referred To Contact Open Radiology Diagnoses Abnormal CT of the chest Procedures CT Chest W Contrast Ziyad Menendez MD [address] [facility] [place] [address] Status Reason Specialty Diagnoses / Procedures Referred By Contact Referred To Contact Open Specialty Services Required Orthopedic Surgery Diagnoses Closed fracture of coccyx, initial encounter (HCC) Lauren Lutz APRN - AN/SSN 2 4 OPERATOR [address] [place] [address] [place] [phone] [place] [address] Scheduling Instructions [facility] [address] [place] [address] Specialty Diagnoses / Procedures Referred By Lisa french Referred To Contact Pulmonary and Critical Care Medicine Diagnoses Panlobular emphysema (HCC) Chronic respiratory failure with hypoxia (HCC) Procedures CONSULT TO PULM/CRITICAL CARE OFFICE/OUTPATIENT [facility] 60-74 MINUTES Herminia Case MD [address] [place] [place] [id number] Referral ID Status Reason Start Date Expiration Date Visits Requested Visits Authorized [id number] Pending Review PCP Requested Referral 08/06/2021 08/06/2022 1 1 Specialty Diagnoses / Procedures Referred By Lisa french Referred To Contact BR IMAGING Diagnoses Encounter for screening mammogram for malignant neoplasm of breast Procedures PAOLO SCREENING W CARON SCREENING DIGITAL BREAST TOMOSYNTHESIS BI SCREENING MAMMOGRAPHY BI 2-VIEW BREAST INC CAD Herminia Case MD [address] [place] [address] [facility] [address] [place] [address] Referral ID Status Reason Start Date Expiration Date Visits Requested Visits Authorized [id number] Pending Review Auto-Generat ed Referral 08/06/2021 09/05/2022 1 1 Specialty Diagnoses / Procedures Referred By Lisa t Referred To Contact Radiology Diagnoses Malignant neoplasm of exocervix (HCC) Abnormal chest CT Procedures CT Chest W Contrast Ziyad Menendez MD [address] [facility] [place] [address] Referral ID Status Reason Start Date Expiration Date Visits Re quested Visits Authorized [id number] Closed 09/17/2021 09/17/2022 1 1 Specialty Diagnoses / Procedures Referred By Contac t Referred To Contact Gena Michaels APRN.AN/SSN 2 4 OPERATOR [address] [place] [address] Referral ID Status Reason Start Date Expiration Date V isits Requested Visits Authorized [id number] Pending Review 1 1 Specialty Diagnoses / Procedures Referred By Contac t Referred To Contact Radiology Diagnoses Malignant neoplasm of exocervix (HCC) Procedures CT chest wo IV contrast Kisha Pepe APRN - AN/SSN 2 4 OPERATOR [address] [facility] [address] [place] [address] Referral ID Status Reason Start Date Expiration Date V isits Requested Visits Authorized [id number] Pending Review 10/20/2022 04/18/2023 1 1 Specialty Diagnoses / Procedures Referred By Contac t Referred To Contact Diagnoses Family history of breast cancer Malignant neoplasm of exocervix (HCC) Procedures CONSULT TO MEDICAL GENETICS - CANCER MEDICAL GENETICS COUNSELING EACH 30 MINUTES Herminia Case MD [address] [place] [address] [address] Referral ID Status Reason Start Date Expiration Date Visits Requested Visits Authorized [id number] Pending Review PCP Requested Referral Auto-Generate d Referral 3 01/14/2024 1 1 Hospital Course Note Gynecology Oncology Discharg e Summary Patient Name: Gonzalo Deluca Patient : 1955 Primary Care Physician: HERMINIA CASE MD Admit Date: 11/06/2019 Attending Provider: Ziyad Menendez MD Principal Diagnosis: Post-op care Other Diagnosis: S/P hysterectomy [Z90.710] Patient Active Problem List Diagnosis ? Leukocytosis ? Sciatica ? Former smoker ? Chronic back pain ? COPD (chronic obstructive pulmonary disease) (HCC) ? Pulmonary nodule ? Supplemental oxygen dependent ? COPD exacerbation (HCC) ? Recurrent major depression (HCC) ? DDD (degenerative disc disease), cervical ? Emphysema lung (HCC) ? Thoracic compression fracture (HCC) ? Moderate malnutrition (HCC) ? Shortness of breath ? Chronic obstructive pulmonary disease with (acute) exacerbation (HCC) ? PNA (pneumonia) ? S/P hysterectomy ? 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 Additional Source Comments Reason for Visit (unrecogniz ed section and content) Reason Comments Fever Cough Emesis Reason Comments Back Pain Reason Comments Flank Pain Reason Comments Leg Swelling had surgery on 2019 for a radical hysterectomy and just noticed her right foot/ankle was swollen around 2200 on 11/09/2019. movement intact, sensation intact but states there is some numbness Reason Comments Shortness of Breath Reason Comments Extremity Weakness right arm Status Reason Specialty Diagnoses / Procedures Referred By Contact Referred To Contact Authorized Diagnoses Malignant neoplasm of exocervix (HCC) Poor venous access Ziyad Menendez MD [address] [facility] [place] [address] [facility] [address] [place] [id number] Reason Comments Fall Elbow Pain Tailbone Pain Reason Onset Date Comments Refill Request 07/01/2021 Reason Onset Date Comments Refill Request 07/28/2021 Reason Comments Orders [facility] Reason Comments Follow Up Reason Comments Patient Question Reason Onset Date Comments Refill Request 08/26/2021 Specialty Diagnoses / Procedures Referred By Lisa t Referred To Contact Radiology Diagnoses Malignant neoplasm of exocervix (HCC) Abnormal chest CT Procedures CT Chest W Contrast Ziyad Menendez MD [address] [facility] [place] [address] Referral ID Status Reason Start Date Expiration Date Visits Re quested Visits Authorized [id number] Closed 09/17/2021 09/17/2022 1 1 Reason Comments Orders [facility]. Reason Onset Date Comments Refill Request 10/18/2021 Reason Onset Date Comments Refill Request 10/27/2021 Reason Comments Refill Request Reason Onset Date Comments Refill Request 01/13/2022 Reason Comments Sinusitis Reason Comments Nurse Triage Call Reason Onset Date Comments Refill Request 02/08/2022 Reason Comments Orders Reason Comments Follow Up Reason Onset Date Comments Refill Request 03/08/2022 Reason Comments Appointment Reason Onset Date Comments Population Health Navigation Outreach 04/06/2022 [facility] Reason Onset Date Comments Refill Request 04/07/2022 Reason Onset Date Comments Refill Request 05/06/2022 Reason Comments Home Care Management Reason Comments Sinus Problem Reason Comments Med Change Request Reason Comments Medication Problem Patient Update Reason Comments Patient Update Cancelled her home O T visit today due to illness Reason Onset Date Comments Refill Request 07/27/2022 Reason Comments F/U 6 Month Reason Onset Date Comments Refill Request 10/15/2022 Reason Comments Follow-up Pt has no concerns Reason Onset Date Comments Refill Request 10/21/2022 Reason Comments Hip Pain Hand Pain Specialty Diagnoses / Procedures Referred By Contac t Referred To Contact Diagnoses Closed displaced intertrochanteric fracture of left femur, initial encounter ([facility]) Procedures . Raul Whipple DO [address] [place] [address] [facility] Telemetry [address] [place] [phone] Referral ID Status Reason Start Date Expiration Date Visits Re quested Visits Authorized [id number] 1 1 Reason Onset Date Comments Refill Request 11/17/2022 Reason Comments Home Care Reason Onset Date Comments cologuard 12/09/2022 cologuard Reason Onset Date Comments Home Care 12/07/2022 Reason Onset Date Comments Refill Request 12/16/2022 Reason Comments Missed Appointment Reason Comments appointment cancellation Reason Comments 6 Month Exam Reason Onset Date Comments Population Health Navigation Outreach 01/27/2023 ACO CARE GAP Reason Onset Date Comments Population Health Navigation Outreach 02/01/2023 Cologuard reminder Reason Comments Fall Complaint of a fall today getting off of a toilet injuring lower back and pelvis pain. Pt also states her left shoulder hurts. Denies LOC or blood thinners. Pt is alert and oriented at this time. Specialty Diagnoses / Procedures Referred By Contac t Referred To Contact Diagnoses Multiple falls Fall, initial encounter Lumbar compression fracture, closed, initial encounter ([facility]) Procedures . Lauren Serna MD [address] [address] [facility] [address] [place] [address] Referral ID Status Reason Start Date Expiration Date Visits Re quested Visits Authorized [id number] 1 1 Reason Onset Date Comments Refill Request 03/07/2023 Reason Comments Medication Problem Reason Onset Date Comments Home Care 05/18/2023 Reason Onset Date Comments Refill Request 05/26/2023 Reason Onset Date Comments Refill Request 06/24/2023 Reason Onset Date Comments Refill Request 06/25/2023 Reason Onset Date Comments Refill Request 07/04/2023 Reason Onset Date Comments Refill Request 07/22/2023 Reason Comments Shortness of Breath Cough Fever Reason Onset Date Comments Refill Request 08/20/2023 Reason Comments Electronic Communication FAX from [place] Andrey yanez is going to be coming over that needs to be faxed back to them Reason Comments Shingles On left side Reason Onset Date Comments Refill Request 09/15/2023 Reason Onset Date Comments Refill Request 09/16/2023 Reason Comments Patient Update Reason Comments Fall Pt arrived by EMS fo r a fall at home. EMS states she fell and hit her left side and has some rib pain. Negative LOC and not on blood thinners. Pt is on oxygen at 2lpm for COPD. Pt denies chest pain and SOB. Specialty Diagnoses / Procedures Referred By Contac t Referred To Contact Diagnoses Near syncope Closed head injury, initial encounter Fall, initial encounter Compression fracture of T7 vertebra, initial encounter (HCC) Compression fracture of T8 vertebra, initial encounter (HCC) Compression fracture of T5 vertebra, initial encounter (HCC) Compression fracture of L1 vertebra, initial encounter ([facility]) Procedures r55 Nickolas Marrero MD [address] [place] [address] [facility] 2e Cardiac P[address] [place] [address] Referral ID Status Reason Start Date Expiration Date Visits Re quested Visits Authorized [id number] 1 1 Reason Onset Date Comments Opened In Error 10/06/2023 Reason Comments Home Care Physical therapy del ayed 1 week Reason Onset Date Comments Home Care Management 10/06/2023 Home care C ertification Form 485 received from [employer] .For cert dates 09/26/2023 - 11/24/2023 that were signed on 10/10/2023.New CertificationPatient's home health 485 form / care plan for stated certification period reviewed and signed. Relevant medical records were reviewed. No changes were indicated Reason Onset Date Comments Home Care 10/11/2023 Reason Comments Fall Pt arrived by EMS fr om home from falling backwards over the vacuum. Pt denies hitting head. Pt states her left side and left leg hurts. Pt states the pain is an 8/10. Reason Onset Date Comments Refill Request 11/14/2023 Reason Onset Date Comments Home Care 12/06/2023 Reason Comments Results Reason Onset Date Comments Refill Request 12/13/2023 Reason Comments Telemedicine Reason Onset Date Comments Refill Request 01/09/2024 Reason Onset Date Comments Refill Request 01/10/2024 Reason Onset Date Comments Refill Request 01/11/2024 Reason Onset Date Comments Refill Request 02/06/2024 Reason Comments Follow-up Pt has no concerns. Reason Comments Fall Arm Injury Laceration Specialty Diagnoses / Procedures Referred By Lisa french Referred To Contact Diagnoses Fall, initial encounter Procedures [facility] [id number] ...[facility] Dual Complete active per [employer] eff 03/21/22 ...auth required ...pending auth ref# [id number] ...UM to fax clinical to [phone] Dianne Dale [address] [place] [address] [facility] Emergency Dept [facility] [place] [address] Referral ID Status Reason Start Date Expiration Date Visits Re quested Visits Authorized [id number] 1 1 Reason Onset Date Comments Refill Request 03/04/2024 Reason Onset Date Comments Refill Request 03/10/2024 Reason Onset Date Comments Refill Request 03/31/2024 Reason Comments Fall Weakness, Gen C/o of face pain and L elbow pain 2ndary fall. Pt states she felt weak and dizzy prior to fall but no LOC Reason Onset Date Comments Refill Request 04/30/2024 Reason Onset Date Comments Refill Request 05/26/2024 Reason Comments Follow Up Reason Comments Home Care SOC approval. Reason Comments Home Care Confirmation call. Reason Onset Date Comments Refill Request 06/26/2024 Reason Onset Date Comments Refill Request 07/22/2024 Reason Comments Weight Loss Pt in with family fo r c/o failure to thrive, weight loss, and shortness of breath. Pt arrives on 3L oxygen, has history of COPD and states has been short of breath with exertion. Pt states she has been losing weight and now weighs 89lbs. States was sent by PCP Shortness of Breath Specialty Diagnoses / Procedures Referred By Contgay t Referred To Contact Diagnoses Adult failure to thrive Severe protein-calorie malnutrition (HCC) Closed supracondylar fracture of left humerus, initial encounter Procedures . 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 Reason Onset Date Comments Refill Request 08/18/2024 Reason Onset Date Comments Refill Request 08/22/2024 Reason Comments OP Infusion INFORMATION SOURCE (unrecogn ized section and content) DATE CREATED AUTHOR 10/12/2019 [facility] DATE CREATED AUTHOR AUTHOR'S ORGANIZ ATION 11/14/2019 [facility] DATE CREATED AUTHOR AUTHOR'S ORGANIZ ATION 06/13/2020 [facility] DATE CREATED AUTHOR AUTHOR'S ORGANIZ ATION 09/13/2020 [facility] DATE CREATED AUTHOR AUTHOR'S ORGANIZ ATION 12/19/2021 [facility] DATE CREATED AUTHOR AUTHOR'S ORGANIZ ATION 07/31/2024 [facility] DATE CREATED AUTHOR AUTHOR'S ORGANIZ ATION 08/31/2024 [facility] DATE CREATED AUTHOR AUTHOR'S ORGANIZ ATION 09/11/2024 [facility] Ordered Prescriptions (unrec ognized section and content) Prescription Sig Dispensed Refills Start Date End Da te benzonatate (TESSALON PERLES) 100 MG capsule Take 1 capsule by mouth 3 times daily as needed for Cough 30 capsule 0 03/16/2020 03/23/2020 predniSONE (DELTASONE) 10 MG tablet Take 4 tablets by mouth once daily for 5 days 20 tablet 0 03/16/2020 03/26/2020 azithromycin (ZITHROMAX) 250 MG tabletIndications:COPD exacerbation (HCC),Bronchitis Take 2 tablets (500 mg total) on Day 1, followed by 1 tablet (250 mg) once daily on Days 2 through 5. 1 packet 0 03/16/2020 03/26/2020 Scheduled Active and Recently Administ ered Medications (unrecognized section and content) Medication Order 10/14/2020 10/15/2020 10/16/2020 oxyCODONE-acetaminophen (PERCOCET) 5-325 MG per tablet 1 tablet (COMPLETED) 1 tablet, Oral, ONCE, On Olga 10/16/20 at 1453, For 1 dose 1500 (Given - Provid er: Jono Wooten RN) Scheduled Medication Order 11/06/2022 11/07/2022 11/08/2022 acetaminophen (Tylenol) tablet 1,000 mg (COMPLETED) 1,000 mg, Oral, Once, On 11/06/22 at 1300, For 1 dose, Maximum dose of acetaminophen is 4000 mg from all sources in 24 hours. 1305 (Given - Provider: Gwen Solorzano RN) aspirin EC tablet 81 mg 81 mg, Oral, Daily, First dose on 11/08/22 at 0900, Do not crush, chew, or split. 0856 (Given - Provider: Austyn Bee RN) atorvastatin (Lipitor) tablet 40 mg 40 mg, Oral, Nightly, First dose on 11/06/22 at 2100 2100 (Given - Provider: Tona Barroso, CHARLEY) 2105 (Given - Provider: Tona Barroso, CHARLEY) buPROPion XL (Wellbutrin XL) 24 hr tablet 150 mg 150 mg, Oral, Nightly, First dose (after last modification) on 11/06/22 at 2100, Do not crush, chew, or split. 2100 (Given - Provider: Tona Barroso RN) 2106 (Given - Provider: Tona Barroso RN) ceFAZolin (Ancef) 2,000 mg in sodium chloride 0.9 % 100 mL IVPB (COMPLETED) 2,000 mg, IntraVENous, at 200 mL/hr, Administer over 30 Minutes, Every 8 hours, First dose on Tue11/07/22 at 1600, For 2 doses, Phase II/On Unit, Patients < 120 k mg ~~~ Patients >/= 120 k mg Mini-Bag Plus bag, Suspected Indication (Select all that apply): Surgical Prophylaxis 1615 (New Bag - Provider: Erna Sheldon RN)1645 (Stopped - Provider: Erna Sheldon RN) 0052 (New Bag - Provider: Tona Barroso RN)0122 (Stopped - Provider: Tona Barroso RN) enoxaparin (Lovenox) syringe 40 mg 40 mg, SubCUTAneous, Every 24 hours scheduled (Daily), First dose on Tue11/08/22 at 0900, Phase II/On Unit, Indication of Use: Prophylaxis-DVT/PE, Indications: Prophylaxis of Venous Thromboembolism 0856 (Given - Provider: Austyn Bee RN) gabapentin (Neurontin) tablet 600 mg 600 mg, Oral, Nightly, First dose (after last modification) on Tue11/06/22 at 2100 2100 (Given - Provider: Tona Barroso RN) 2105 (Given - Provider: Tona Barroso RN) montelukast (Singulair) tablet 10 mg 10 mg, Oral, Nightly, First dose on Tue11/06/22 at 2100 2100 (Given - Provider: Tona Barroso RN) 2105 (Given - Provider: Tona Barroso RN) nicotine (Nicoderm, Step 1) 21 MG/24HR patch 1 patch 1 patch, TransDERmal, Administer over 24 Hours, Daily, First dose on Tue11/08/22 at 1100 1110 (Medication Applied - Provider: Austyn Bee RN)1823 (Due: Medication Removed - Provider: Automatic Discharge Provider - Comment: Time automatically adjusted from order being discontinued) oxyCODONE (Roxicodone) immediate release tablet 5 mg (COMPLETED) 5 mg, Oral, Once, On Tue11/06/22 at 1300, For 1 dose 1305 (Given - Provider: Gwen Solorzano RN) oxyCODONE (Roxicodone) immediate release tablet 5 mg (COMPLETED) 5 mg, Oral, Once, On 11/06/22 at 1520, For 1 dose 1536 (Given - Provider: Gwen Solorzano RN) QUEtiapine (SEROquel) tablet 200 mg 200 mg, Oral, Nightly, First dose on 11/06/22 at 2115 2214 (Given - Provider: Tona Barroso RN) 2105 (Given - Provider: Tona Barroso RN) sertraline (Zoloft) tablet 200 mg 200 mg, Oral, Nightly, First dose (after last modification) on 11/06/22 at 2100 2100 (Given - Provider: Tona Barroso RN) 2105 (Given - Provider: Tona Barroso RN) sodium chloride 0.9% (NS) flush 5-40 mL 5-40 mL, IntraVENous, Every 12 hours, First dose on 11/06/22 at 1530, For Line Patency: Peripheral IV = 5 mL; Midline or Central Line = 10 mL/lumen. If following IV push medication, administer flush at same rate as the IV push. Flush volume is determined by type of infusion therapy being given. For non-viscous solutions use: Peripheral IV = 5 mL Midline or Central Line = 10 mL/lumen For viscous solutions (i.e. blood components, parenteral nutrition, contrast media, or after obtaining blood sample) use: Peripheral IV = 10 mL Midline or Central Line = 20 mL/lumen 1537 (Given - Provider: Gwen Solorzano RN) 0330 (Not Given - Provider: Tona Barroso RN - Reason: Other - Comment: Flushed with 10cc NS at 2100 on 11/06)0800 (Not Given - Provider: Erna Sheldon RN - Reason: Patient not available)210 (Given - Provider: Tona Barroso RN) 1009 (Given - Provider: Austyn Bee RN) tiotropium (Spiriva) 18 MCG per inhalation capsule 18 mcg 18 mcg (1 capsule), Inhalation, Daily, First dose on 11/06/22 at 1700 1700 (Not Given - Provider: Phillip Snyder RCP - Reason: Medication not available) 0945 (Given - Provider: Venu Trimble RCP) 0836 (Given - Provider: Phillip Vuong RCP) PRN Medication Order 11/06/2022 11/07/2022 11/08/2022 acetaminophen (Tylenol) suppository 650 mg(Linked Group 1) 650 mg, Rectal, Every 6 hours PRN, mild pain (1-3), fever, For temp greater than 100.4 F (38 C), Starting on 11/06/22 at 1522, Administer if oral route cannot be used. Maximum dose of acetaminophen is 4000 mg from all sources in 24 hours. acetaminophen (Tylenol) tablet 650 mg(Linked Group 1) 650 mg, Oral, Every 6 hours PRN, mild pain (1-3), fever, For temp greater than 100.4 F (38 C), Starting on 11/06/22 at 1522, Maximum dose of acetaminophen is 4000 mg from all sources in 24 hours. doxylamine (Unisom) tablet 25 mg 25 mg, Oral, Nightly PRN, sleep, Starting on 11/07/22 at 0940 HYDROmorphone (Dilaudid) injection 0.25 mg(Linked Group 2) 0.25 mg, IntraVENous, Every 3 hours PRN, moderate pain (4-6), Starting on 11/07/22 at 0939, Phase II/On Unit, If oral and IV narcotics ordered, use oral first and only use IV if oral is ineffective or cannot take oral. Do Not give oral and IV within 1 hour of each other unless specifically ordered. 1250 (See Alternative - Provider: Erna Sheldon RN)1615 (See Alternative - Provider: Erna Sheldon RN)2107 (See Alternative - Provider: Tona Barroso, CHARLEY) 0312 (See Alternative - Provider: Tona Barroso, CHARLEY)1009 (See Alternative - Provider: Austyn Bee, CHARLEY)1621 (See Alternative - Provider: Austyn Bee RN) HYDROmorphone (Dilaudid) injection 0.5 mg(Linked Group 2) 0.5 mg, IntraVENous, Every 3 hours PRN, severe pain (7-10), Starting on 11/07/22 at 0939, Phase II/On Unit, If oral and IV narcotics ordered, use oral first and only use IV if oral is ineffective or cannot take oral. Do Not give oral and IV within 1 hour of each other unless specifically ordered. 1250 (Given - Provider: Erna Sheldon, CHARLEY)1615 (Given - Provider: Erna Sheldon, CHARLEY)2107 (Given - Provider: Tona Barroso, CHARLEY) 0312 (Given - Provider: Tona Barroso, CHARLEY)1009 (Given - Provider: Austyn Bee, RN)1621 (Given - Provider: Austyn Bee RN) ipratropium-albuterol (Duo-Neb) 0.5-2.5 mg/3 mL nebulizer solution 3 mL 3 mL, Nebulization, 3 times daily PRN, wheezing, shortness of breath, Starting on 11/06/22 at 1526 morphine injection 2 mg (CANCELED) 2 mg, IntraVENous, Every 4 hours PRN, severe pain (7-10), Starting on 11/06/22 at 1526, If oral and IV narcotics ordered, use oral first and only use IV if oral is ineffective or cannot take oral. Do Not give oral and IV within 1 hour of each other unless specifically ordered. 1745 (Given - Provider: Alex Mendoza RN)2214 (Given - Provider: Tona Barroso, CHARLEY) ondansetron (Zofran) injection 4 mg(Linked Group 3) 4 mg, IntraVENous, Every 6 hours PRN, nausea, vomiting, Starting on 11/06/22 at 1522, 1st Line. Give IV if patient is unable to take orally. If inadequate response within 60 minutes, proceed to next-line agent or contact provider if no further options ordered. 0851 (Given - Provider: DB Duong CRNA) ondansetron ODT (Zofran-ODT) disintegrating tablet 4 mg(Linked Group 3) 4 mg, Oral, Every 8 hours PRN, nausea, vomiting, Starting on 11/06/22 at 1522, 1st Line. If inadequate response within 60 minutes, proceed to next-line agent or contact provider if no further options ordered. Patient should allow tablet to dissolve on tongue. Do not remove from blister pack until just before administering. 0851 (See Alternative - Provider: Ray Andrea, LAMINATING PRESS OPERATOR - [employer]PA[employer]) oxyCODONE (Roxicodone) immediate release tablet 10 mg(Linked Group 4) 10 mg, Oral, Every 4 hours PRN, severe pain (7-10), Starting on 11/07/22 at 0939, Phase II/On Unit 1013 (Given - Provider: Erna Sheldon RN)1444 (Given - Provider: Erna Sheldon RN)1850 (Given - Provider: Erna Sheldon RN) 0048 (Given - Provider: Tona Barroso RN)0855 (Given - Provider: Austyn Bee RN)1323 (Given - Provider: Austyn Bee RN) oxyCODONE (Roxicodone) immediate release tablet 5 mg(Linked Group 4) 5 mg, Oral, Every 4 hours PRN, moderate pain (4-6), Starting on 11/07/22 at 0939, Phase II/On Unit 1013 (See Alternative - Provider: Erna Sheldon RN)1444 (See Alternative - Provider: Erna Sheldon RN)1850 (See Alternative - Provider: Erna Sheldon RN) 0048 (See Alternative - Provider: Tona Barroso RN)0855 (See Alternative - Provider: Austyn Bee RN)1323 (See Alternative - Provider: Austyn Bee RN) oxyCODONE-acetaminophen (Percocet) 5-325 MG per tablet 1 tablet (CANCELED) 1 tablet, Oral, Every 6 hours PRN, moderate pain (4-6), severe pain (7-10), Starting on 11/06/22 at 1526, Maximum dose of acetaminophen is 4000 mg from all sources in 24 hours. 2048 (Given - Provider: Kelsi Madden RN) 0619 (Given - Provider: Tona Barroso RN) polyethylene glycol (PEG) 3350 (Miralax) packet 17 g 17 g, Oral, Daily PRN, constipation, Starting on 11/06/22 at 1522, 1st line for treatment of constipation - give scheduled if no bowel movement in past 24 hours. sodium chloride 0.9 % infusion 5-250 mL/hr, IntraVENous, PRN, if patient receiving piggyback infusions and maintenance fluids are not ordered OR KVO fluids to protect IV site / prevent frequent line interruptions / long duration, Starting on 11/06/22 at 1522, For piggyback infusion, administer at same rate as piggyback for a total of 25 mL. Enter 25 mL into dose field and piggyback rate into rate field of order. If piggyback is infusing at a rate less than 100 mL/hr, enter 25 mL into dose field and 100 mL/hr into rate field of order. For KVO fluids, enter rate of 20 mL/hr or less into rate field of order. sodium chloride 0.9 % irrigation solution (CANCELED) As needed, Starting on 11/07/22 at 0842, Intraprocedure 0842 (Given - Provider: Andres Ventura MD) sodium chloride 0.9% (NS) flush 5-40 mL 5-40 mL, IntraVENous, PRN, line care, After every IV line use, Starting on 11/06/22 at 1522, For Line Patency: Peripheral IV = 5 mL; Midline or Central Line = 10 mL/lumen. If following IV push medication, administer flush at same rate as the IV push. Flush volume is determined by type of infusion therapy being given. For non-viscous solutions use: Peripheral IV = 5 mL Midline or Central Line = 10 mL/lumen For viscous solutions (i.e. blood components, parenteral nutrition, contrast media, or after obtaining blood sample) use: Peripheral IV = 10 mL Midline or Central Line = 20 mL/lumen Linked Groups Order Group 1: acetaminophen (Tylenol) tablet 650 mgJump to med 650 mg, Oral, Every 6 hours PRN, mild pain (1-3), fever, For temp greater than 100.4 F (38 C), Starting on 11/06/22 at 1522
Maximum dose of acetaminophen is 4000 mg from all sources in 24 hours.
Or acetaminophen (Tylenol) suppository 650 mgJump to med 650 mg, Rectal, Every 6 hours PRN, mild pain (1-3), fever, For temp greater than 100.4 F (38 C), Starting on 11/06/22 at 1522
Administer if oral route cannot be used. Maximum dose of acetaminophen is 4000 mg from all sources in 24 hours.
Group 2: HYDROmorphone (Dilaudid) injection 0.25 mgJump to med 0.25 mg, IntraVENous, Every 3 hours PRN, moderate pain (4-6), Starting on 11/07/22 at 0939, Phase II/On Unit
If oral and IV narcotics ordered, use oral first and only use IV if oral is ineffective or cannot take oral. Do Not give oral and IV within 1 hour of each other unless specifically ordered.
Or HYDROmorphone (Dilaudid) injection 0.5 mgJump to med 0.5 mg, IntraVENous, Every 3 hours PRN, severe pain (7-10), Starting on 11/07/22 at 0939, Phase II/On Unit
If oral and IV narcotics ordered, use oral first and only use IV if oral is ineffective or cannot take oral. Do Not give oral and IV within 1 hour of each other unless specifically ordered.
Group 3: ondansetron ODT (Zofran-ODT) disintegrating tablet 4 mgJump to med 4 mg, Oral, Every 8 hours PRN, nausea, vomiting, Starting on 11/06/22 at 1522
1st Line. If inadequate response within 60 minutes, proceed to next-line agent or contact provider if no further options ordered. Patient should allow tablet to dissolve on tongue. Do not remove from blister pack until just before administering.
Or ondansetron (Zofran) injection 4 mgJump to med 4 mg, IntraVENous, Every 6 hours PRN, nausea, vomiting, Starting on 11/06/22 at 1522
1st Line. Give IV if patient is unable to take orally. If inadequate response within 60 minutes, proceed to next-line agent or contact provider if no further options ordered.
Group 4: oxyCODONE (Roxicodone) immediate release tablet 5 mgJump to med 5 mg, Oral, Every 4 hours PRN, moderate pain (4-6), Starting on 11/07/22 at 0939, Phase II/On Unit Or oxyCODONE (Roxicodone) immediate release tablet 10 mgJump to med 10 mg, Oral, Every 4 hours PRN, severe pain (7-10), Starting on 11/07/22 at 0939, Phase II/On Unit Scheduled Medication Order 02/16/2023 02/17/2023 02/18/2023 aspirin EC tablet 81 mg 81 mg, Oral, Daily, First dose on Tue02/14/23 at 0900, Do not crush, chew, or split. 0940 (Given - Provider: ARMIN DE OLIVEIRA) 1119 (Given - Provider: ARMIN DE OLIVEIRA) 0924 (Given - Provider: Rimma Mills RN) atorvastatin (Lipitor) tablet 40 mg 40 mg, Oral, Nightly, First dose on Tue02/14/23 at 2100 2100 (Given - Provider: Vicente Enciso RN) 2104 (Given - Provider: Cheryl Valdivia, CHARLEY) 2099 (Canceled Entry - Provider: Automatic Discharge Provider - Comment: Automatically canceled at discontinue of medication order) buPROPion XL (Wellbutrin XL) 24 hr tablet 150 mg 150 mg, Oral, Daily, First dose on Tue02/14/23 at 0800, Do not crush, chew, or split. 0940 (Given - Provider: ARMIN DE OLIVEIRA) 1120 (Given - Provider: ARMIN DE OLIVEIRA) 0924 (Given - Provider: Rimma Mills RN) calcitonin (Miacalcin) injection 50 Units 50 Units, IntraMUSCular, Daily, First dose on Tue02/14/23 at 0900 0948 (Given - Provider: ARMIN DE OLIVEIRA) 1120 (Given - Provider: ARMIN DE OLIVEIRA) 0921 (Given - Provider: Rimma Mills RN) clonazePAM (KlonoPIN) tablet 0.5 mg 0.5 mg, Oral, Nightly, First dose on Tue02/16/23 at 2100 210 (Given - Provider: Vicente Enciso, CHARLEY) 2104 (Given - Provider: Cheryl Valdivia, CHARLEY) 2100 (Canceled Entry - Provider: Automatic Discharge Provider - Comment: Automatically canceled at discontinue of medication order) DULoxetine (Cymbalta) DR capsule 60 mg 60 mg, Oral, Daily, First dose on Tue02/14/23 at 0900, Do not crush or chew. 0940 (Given - Provider: ARMIN DE OLIVEIRA) 1119 (Given - Provider: ARMIN DE OLIVEIRA) 0923 (Given - Provider: Rimma Mills, CHARLEY) enoxaparin (Lovenox) syringe 40 mg 40 mg, SubCUTAneous, Every 24 hours scheduled (Daily), First dose on Tue02/14/23 at 0900, Indication of Use: Prophylaxis-DVT/PE, Indications: Prophylaxis of Venous Thromboembolism 0941 (Given - Provider: ARMIN DE OLIVEIRA) 0900 (Given - Provider: ARMIN DE OLIVEIRA) 0923 (Given - Provider: Rimma Mills RN) gabapentin (Neurontin) tablet 600 mg 600 mg, Oral, Daily, First dose on Tue02/16/23 at 1745 2306 (Given - Provider: Vicente Enciso RN) 1119 (Given - Provider: ARMIN DE OLIVEIRA) 0924 (Given - Provider: Rimma Mills RN) ipratropium-albuterol (Duo-Neb) 0.5-2.5 mg/3 mL nebulizer solution 3 mL (CANCELED) 3 mL, Nebulization, 3 times daily, First dose on Tue02/16/23 at 1999, Indications: Asthma, COPD 2003 (Given - Provider: Kaylene Cifuentes RCP) 0940 (Not Given - Provider: Kate Stover RCP - Reason: Patient/family refused - Comment: pt did not feel the need fortx at this time)1300 (Not Given - Provider: Kate Stover RCP - Reason: Patient/family refused - Comment: pt did not feel the need fortx at this time)2107 (Not Given - Provider: Emanuel Le RCP - Reason: Patient/family refused) 0820 (Given - Provider: Yesenia Salas RCP) ipratropium-albuterol (Duo-Neb) 0.5-2.5 mg/3 mL nebulizer solution 3 mL 3 mL, Nebulization, 2 times daily, First dose (after last modification) on Tue02/18/23 at 1999, Indications: Asthma, COPD 1999 (Canceled Entry - Provider: Automatic Discharge Provider - Comment: Automatically canceled at discontinue of medication order) montelukast (Singulair) tablet 10 mg 10 mg, Oral, Nightly, First dose on Tue02/16/23 at 2100 2101 (Given - Provider: Vicente Enciso RN) 210 (Given - Provider: Cheryl Valdivia RN) 2100 (Canceled Entry - Provider: Automatic Discharge Provider - Comment: Automatically canceled at discontinue of medication order) potassium chloride (Klor-Con) packet 40 mEq (COMPLETED) 40 mEq, Oral, Once, On Tue02/16/23 at 0845, For 1 dose, Dissolve each packet in 4 ounces of water = 5 mEq per 1 oz fluid., Indications: Hypokalemia 0940 (Given - Provider: ARMIN DE OLIVEIRA) QUEtiapine (SEROquel) tablet 200 mg 200 mg, Oral, Nightly, First dose on Tue02/14/23 at 2100, Indications: Generalized Anxiety Disorder, Major Depressive Disorder 2100 (Given - Provider: Vicente Enciso RN) 2104 (Given - Provider: Cheryl Valdivia RN) 2100 (Canceled Entry - Provider: Automatic Discharge Provider - Comment: Automatically canceled at discontinue of medication order) sodium chloride 0.9 % bolus 500 mL (COMPLETED) 500 mL, IntraVENous, at 500 mL/hr, Administer over 1 Hours, Once, On Olga 02/17/23 at 0815, For 1 dose 0845 (New Bag - Provider: ARMIN DE OLIVEIRA)0945 (Stopped - Provider: ARMIN DE OLIVEIRA) tiotropium (Spiriva) 18 MCG per inhalation capsule 18 mcg 18 mcg (1 capsule), Inhalation, Daily, First dose on Tue02/16/23 at 1745 210 (Given - Provider: Vicente Enciso RN) 1120 (Given - Provider: ARMIN DE OLIVEIRA) 0923 (Given - Provider: Rimma Mills RN) Continuous Medication Order 02/16/2023 02/17/2023 02/18/2023 sodium chloride 0.9 % infusion (CANCELED) 100 mL/hr, IntraVENous, Continuous, Starting on Olga 02/17/23 at 1130 1130 (New Bag - Provider: ARMIN DE OLIVEIRA) 0309 (New Bag - Provider: Cheryl Valdivia RN)1343 (Stopped - Provider: Rimma Mills RN) PRN Medication Order 02/16/2023 02/17/2023 02/18/2023 acetaminophen (Tylenol) suppository 650 mg(Linked Group 1) 650 mg, Rectal, Every 6 hours PRN, mild pain (1-3), fever, For temp greater than 100.4 F (38 C), Starting on Tue02/14/23 at 0040, Administer if oral route cannot be used. Maximum dose of acetaminophen is 4000 mg from all sources in 24 hours. acetaminophen (Tylenol) tablet 650 mg(Linked Group 1) 650 mg, Oral, Every 6 hours PRN, mild pain (1-3), fever, For temp greater than 100.4 F (38 C), Starting on Tue02/14/23 at 0040, Maximum dose of acetaminophen is 4000 mg from all sources in 24 hours. albuterol (2.5 MG/3ML) 0.083% nebulizer solution 2.5 mg 2.5 mg, Nebulization, Every 4 hours PRN, wheezing, shortness of breath, Starting on Tue02/13/23 at 2323, Initiate RT Bronchodilator Protocol? Yes albuterol 108 (90 Base) MCG/ACT inhaler 2 puff 2 puff, Inhalation, Every 4 hours PRN, shortness of breath, Starting on Tue02/16/23 at 1735 cyclobenzaprine (Flexeril) tablet 10 mg 10 mg, Oral, 3 times daily PRN, muscle spasms, Starting on Tue02/14/23 at 0753 2306 (Given - Provider: Vicente Enciso RN) 0922 (Given - Provider: Rimma Mills RN) Diclofenac Sodium (Voltaren) 1 % gel 4 g 4 g, Topical, PRN, as needed for pain on joints, Starting on Olga 02/17/23 at 1620, Apply to affected areas. 2106 (Given - Provider: Cheryl Valdivia RN) HYDROcodone-acetaminophe n ([place]) 5-325 MG per tablet 1 tablet (CANCELED)(Linked Group 2) 1 tablet, Oral, Every 4 hours PRN, moderate pain (4-6), Starting on Olga 02/17/23 at 0706, Maximum dose of acetaminophen is 4000 mg from all sources in 24 hours. 1000 (Given - Provider: ARMIN DE OLIVEIRA)1119 (Given - Provider: ARMIN DE OLIVEIRA) naloxone (Narcan) injection 0.4 mg 0.4 mg, IntraVENous, PRN, opioid reversal, Starting on Olga 02/17/23 at 1542, For oversedation/difficult to rouse, pinpoint pupils, RR < 8; notify primary team internal combustion engine inspector if used ondansetron (Zofran) injection 4 mg(Linked Group 3) 4 mg, IntraVENous, Every 6 hours PRN, nausea, vomiting, Starting on Tue02/14/23 at 0040, 1st Line. Give IV if patient is unable to take orally. If inadequate response within 60 minutes, proceed to next-line agent or contact provider if no further options ordered. 0948 (See Alternative - Provider: ARMIN DE OLIVEIRA)1841 (See Alternative - Provider: ARMIN DE OLIVEIRA) ondansetron ODT (Zofran-ODT) disintegrating tablet 4 mg(Linked Group 3) 4 mg, Oral, Every 8 hours PRN, nausea, vomiting, Starting on Tue02/14/23 at 0040, 1st Line. If inadequate response within 60 minutes, proceed to next-line agent or contact provider if no further options ordered. Patient should allow tablet to dissolve on tongue. Do not remove from blister pack until just before administering. 0948 (Given - Provider: ARMIN DE OLIVEIRA)1841 (Given - Provider: ARMIN DE OLIVEIRA) oxyCODONE-acetaminophen (Percocet) 5-325 MG per tablet 1 tablet (CANCELED) 1 tablet, Oral, Every 6 hours PRN, moderate pain (4-6), severe pain (7-10), Starting on Tue02/13/23 at 2325, Maximum dose of acetaminophen is 4000 mg from all sources in 24 hours. 0333 (Given - Provider: Freddy Alarcon RN)0940 (Given - Provider: ARMIN DE OLIVEIRA)1648 (Given - Provider: ARMIN DE OLIVEIRA)2306 (Given - Provider: Vicente Enciso RN) oxyCODONE-acetaminophen (Percocet) 5-325 MG per tablet 1 tablet 1 tablet, Oral, Every 6 hours PRN, moderate pain (4-6), Starting on Olga 02/17/23 at 1540, Maximum dose of acetaminophen is 4000 mg from all sources in 24 hours. 1617 (Given - Provider: ARMIN DE OLIVEIRA)2336 (Given - Provider: Cheryl Valdivia, CHARLEY) 0921 (Given - Provider: Rimma Mills, RN)1534 (Given - Provider: Rimma Mills RN) polyethylene glycol (PEG) 3350 (Miralax) packet 17 g 17 g, Oral, Daily PRN, constipation, Starting on Tue02/14/23 at 0040, 1st line for treatment of constipation - give scheduled if no bowel movement in past 24 hours. technetium Tc-99m medronate (Tc-MDP) radio-isotope injection 22 millicurie (COMPLETED) 22 millicurie (rounded from 21.5 millicurie), IntraVENous, IMG once PRN, R WRIST, Starting on Tue02/17/23 at 0712, For 1 dose 0712 (Given - Provider: REAL Cadet) Linked Groups Order Group 1: acetaminophen (Tylenol) tablet 650 mgJump to med 650 mg, Oral, Every 6 hours PRN, mild pain (1-3), fever, For temp greater than 100.4 F (38 C), Starting on Tue02/14/23 at 0040, Maximum dose of acetaminophen is 4000 mg from all sources in 24 hours. Or acetaminophen (Tylenol) suppository 650 mgJump to med 650 mg, Rectal, Every 6 hours PRN, mild pain (1-3), fever, For temp greater than 100.4 F (38 C), Starting on Tue02/14/23 at 0040, Administer if oral route cannot be used. Maximum dose of acetaminophen is 4000 mg from all sources in 24 hours. Group 2: HYDROcodone-acetaminophen ([place]) 5-325 MG per tablet 1 tablet (CANCELED)Jump to med 1 tablet, Oral, Every 4 hours PRN, moderate pain (4-6), Starting on Tue02/17/23 at 0706, Maximum dose of acetaminophen is 4000 mg from all sources in 24 hours. Or HYDROcodone-acetaminophen ([place]) 5-325 MG per tablet 2 tablet (CANCELED) 2 tablet, Oral, Every 4 hours PRN, severe pain (7-10), Starting on Tue02/17/23 at 0706, Maximum dose of acetaminophen is 4000 mg from all sources in 24 hours. Group 3: ondansetron ODT (Zofran-ODT) disintegrating tablet 4 mgJump to med 4 mg, Oral, Every 8 hours PRN, nausea, vomiting, Starting on 02/14/23 at 0040, 1st Line. If inadequate response within 60 minutes, proceed to next-line agent or contact provider if no further options ordered. Patient should allow tablet to dissolve on tongue. Do not remove from blister pack until just before administering. Or ondansetron (Zofran) injection 4 mgJump to med 4 mg, IntraVENous, Every 6 hours PRN, nausea, vomiting, Starting on 02/14/23 at 0040, 1st Line. Give IV if patient is unable to take orally. If inadequate response within 60 minutes, proceed to next-line agent or contact provider if no further options ordered. Scheduled Medication Order 08/05/2023 08/06/2023 08/07/2023 azithromycin (Zithromax) 500 mg in sodium chloride 0.9 % 250 mL IVPB (ADD-Holden) (COMPLETED) 500 mg, IntraVENous, Administer over 60 Minutes, Once, On 08/07/23 at 1520, For 1 dose, ADD-Holden bag, Suspected Indication (Select all that apply): Upper Respiratory Infection 1745 (New Bag - Prov ider: Carolyn Monson RN)1845 (Stopped - Provider: Carolyn Monson RN) cefTRIAXone (Rocephin) 1 g in sodium chloride 0.9 % 50 mL IVPB Mini-Bag Plus (COMPLETED) 1 g, IntraVENous, at 100 mL/hr, Administer over 30 Minutes, Once, On 08/07/23 at 1520, For 1 dose, Mini-Bag Plus bag, Suspected Indication (Select all that apply): Upper Respiratory Infection 1648 (New Bag - Prov ider: Marjorie Ponce RN)171 (Stopped - Provider: Carolyn Monson RN) predniSONE (Deltasone) tablet 40 mg (COMPLETED) 40 mg, Oral, Once, On 08/07/23 at 1700, For 1 dose 1717 (Given - Provid er: Carolyn Monson RN) sodium chloride 0.9 % bolus 1,701 mL (COMPLETED) 1,701 mL (30 mL/kg 56.7 kg), IntraVENous, at 1,701 mL/hr, Administer over 1 Hours, Once, On Tue08/07/23 at 1520, For 1 dose 1539 (New Bag - Prov ider: Freddy Rodriguez, EMT)1639 (Stopped - Provider: Carolyn Monson RN) Scheduled Medication Order 09/20/2023 09/21/2023 09/22/2023 acetaminophen (Tylenol) tablet 650 mg 650 mg, Oral, 3 times daily, First dose on Tue09/20/23 at 2100, Maximum dose of acetaminophen is 4000 mg from all sources in 24 hours. 2121 (Given - Provider: Maeve Ryan RN) 0822 (Given - Provider: Jennifer Montes RN)1339 (Self Administered Via Pump - Provider: Jennifer Montes RN)2127 (Given - Provider: Maeve Ryan RN) 0801 (Given - Provider: Phillip Dee RN)1400 (Canceled Entry - Provider: Automatic Discharge Provider - Comment: Automatically canceled at discontinue of medication order) buPROPion XL (Wellbutrin XL) 24 hr tablet 150 mg 150 mg, Oral, Daily, First dose on Tue09/20/23 at 0800, Do not crush, chew, or split. 1043 (Given - Provider: Deanna Vaughan RN) 0822 (Given - Provider: Jennifer Montes RN) 0802 (Given - Provider: Phillip Dee, CHARLEY) busPIRone (Buspar) tablet 15 mg (CANCELED) 15 mg, Oral, 3 times daily, First dose on Tue09/20/23 at 2100 2121 (Given - Provider: Maeve Ryan RN) 0822 (Given - Provider: Jennifer Montes RN)1340 (Self Administered Via Pump - Provider: Jennifer Montes RN) busPIRone (Buspar) tablet 15 mg 15 mg, Oral, 2 times daily, First dose (after last modification) on Tue09/21/23 at 2100 212 (Given - Provider: Maeve Ryan RN) 0759 (Given - Provider: Phillip Dee RN) calcitonin (Miacalcin) injection 50 Units 50 Units, IntraMUSCular, Daily, First dose on Tue09/20/23 at 0900 1400 (Not Given - Provider: Deanna Vaughan RN - Reason: Medication not available) 1217 (Given - Provider: Jennifer Montes RN) 1223 (Given - Provider: Phillip Dee, CHARLEY) cholecalciferol (Vitamin D-3) tablet 1,000 Units 1,000 Units, Oral, Daily, First dose on Tue09/22/23 at 0900 0833 (Given - Provider: Phillip Dee, CHARLEY) clonazePAM (KlonoPIN) tablet 0.5 mg (CANCELED) 0.5 mg, Oral, Nightly, First dose on Tue09/20/23 at 0000 0014 (Given - Provider: Suzette Davis RN) DULoxetine (Cymbalta) DR capsule 60 mg (CANCELED) 60 mg, Oral, Daily, First dose on Tue09/20/23 at 0900, Do not crush or chew. 1043 (Given - Provider: Deanna Vaughan RN) enoxaparin (Lovenox) syringe 40 mg 40 mg, SubCUTAneous, Every 24 hours scheduled (Daily), First dose on Tue09/20/23 at 0900, Indication of Use: Prophylaxis-DVT/PE, Indications: Prophylaxis of Venous Thromboembolism 1043 (Given - Provider: Deanna Vaughan RN) 0822 (Given - Provider: Jennifer Montes RN) 0803 (Given - Provider: Phillip Dee, CHARLEY) gabapentin (Neurontin) capsule 600 mg (CANCELED) 600 mg, Oral, Nightly, First dose on Tue09/20/23 at 0000 0013 (Given - Provider: Suzette Davis RN) melatonin tablet 3 mg 3 mg, Oral, Nightly, First dose (after last modification) on Tue09/21/23 at 2100 2126 (Given - Provider: Maeve Ryan, CHARLEY) mirtazapine (Remeron) tablet 15 mg 15 mg, Oral, Nightly, First dose on Tue09/20/23 at 2100 2122 (Given - Provider: Maeve Ryan, CHARLEY) 2126 (Given - Provider: Maeve Ryan, CHARLEY) mometasone-formoterol (Dulera 200) 200-5 MCG/ACT inhaler 2 puff 2 puff, Inhalation, 2 times daily, First dose on Tue09/20/23 at 0000, Rinse mouth with water after use to reduce aftertaste and incidence of candidiasis. Do not swallow. 0000 (Canceled Entry - Provider: Automatic Discharge Provider - Comment: Automatically canceled at discontinue of medication order)0800 (Not Given - Provider: Deanna Vaughan RN - Reason: Medication not available)2124 (Given - Provider: Maeve Ryan RN) 0832 (Given - Provider: Jennifer Montes RN)2130 (Given - Provider: Maeve Ryan, CHARLEY) 08 (Given - Provider: Phillip Dee, CHARLEY) montelukast (Singulair) tablet 10 mg 10 mg, Oral, Nightly, First dose on Tue09/20/23 at 0000 0013 (Given - Provider: Suzette Davis RN)2121 (Given - Provider: Maeve Ryan, CHARLEY) 2126 (Given - Provider: Maeve Ryan RN) nicotine (Nicoderm, Step 2) 14 MG/24HR patch 1 patch 1 patch, TransDERmal, Administer over 24 Hours, Daily, First dose on Tue09/20/23 at 1200, Apply new patch to nonhairy, clean, dry skin on the upper body or upper outer arm. Rotate patch sites. Notify Pharmacy if patient or provider prefers patch to be removed at bedtime and replaced in the morning. 1601 (Medication Applied - Provider: Deanna Vaughan RN) 0859 (Medication Removed - Provider: Jennifer Montes RN)0900 (Not Given - Provider: Jennifer Montes RN - Reason: Patient/family refused) 0802 (Medication Applied - Provider: Phillip Dee RN)1436 (Due: Medication Removed - Provider: Automatic Discharge Provider - Comment: Time automatically adjusted from order being discontinued) PARoxetine (Paxil) tablet 30 mg 30 mg, Oral, Daily, First dose (after last modification) on Tue09/21/23 at 0900 0822 (Given - Provider: Jennifer Mnotes RN) 0802 (Given - Provider: Phillip Dee, RN) potassium chloride CR (Klor-Con M10) ER tablet 40 mEq (COMPLETED) 40 mEq, Oral, Once, On Tue09/20/23 at 0200, For 1 dose, Best given with food and plenty of water to minimize gastric irritation. Do not crush or chew. 0221 (Given - Provider: Suzette Davis RN) potassium chloride CR (Klor-Con M10) ER tablet 40 mEq (COMPLETED) 40 mEq, Oral, 2 times daily, First dose on Tue09/21/23 at 0900, For 2 doses, Best given with food and plenty of water to minimize gastric irritation. Do not crush or chew. 1014 (Given - Provider: Jennifer Montes RN)2127 (Given - Provider: Maeve Ryan, CHARLEY) potassium chloride IVPB 10 mEq () 10 mEq, IntraVENous, at 100 mL/hr, Administer over 1 Hours, Every 1 hour, First dose on Tue09/19/23 at 1800, For 4 doses, Total dose: 40 mEq 0014 (New Bag - Provider: Suzette Davis RN)0114 (Stopped - Provider: Suzette Davis RN) QUEtiapine (SEROquel) tablet 100 mg (CANCELED) 100 mg, Oral, Nightly, First dose on Tue09/20/23 at 0000 0014 (Given - Provider: Suzette Davis RN)2121 (Given - Provider: Maeve Ryan, CHARLEY) senna-docusate sodium (Senokot-S) 8.6-50 MG tablet 1 tablet 1 tablet, Oral, Nightly, First dose on Tue09/21/23 at 2100 2127 (Given - Provider: Maeve Ryan, CHARLEY) tiotropium (Spiriva Respimat) 2.5 MCG/ACT inhaler 2 puff 2 puff, Inhalation, Daily, First dose on Tue09/20/23 at 1300, Instruct to hold breath for 10 seconds after each inhalation. Before first use, prime inhaler by actuating until aerosal cloud is seen, then actuating 3 more times. 1400 (Given - Provider: Deanna Vaughan RN) 0825 (Given - Provider: Jennifer Montes RN) 0805 (Given - Provider: Phillip Dee RN) PRN Medication Order 09/20/2023 09/21/2023 09/22/2023 acetaminophen (Tylenol) suppository 650 mg(Linked Group 1) 650 mg, Rectal, Every 6 hours PRN, mild pain (1-3), fever, For temp greater than 100.4 F (38 C), Starting on Tue09/20/23 at 0003, Administer if oral route cannot be used. Maximum dose of acetaminophen is 4000 mg from all sources in 24 hours. acetaminophen (Tylenol) tablet 650 mg(Linked Group 1) 650 mg, Oral, Every 6 hours PRN, mild pain (1-3), fever, For temp greater than 100.4 F (38 C), Starting on Tue09/20/23 at 0003, Maximum dose of acetaminophen is 4000 mg from all sources in 24 hours. lidocaine (LMX) 4 % cream Topical, PRN, mild pain (1-3), left sided abd and skin pain, Starting on Tue09/20/23 at 0009 melatonin tablet 3 mg (CANCELED) 3 mg, Oral, Nightly PRN, sleep, Starting on Tue09/20/23 at 1812 2122 (Given - Provider: Maeve Ryan RN) naloxone (Narcan) injection 0.4 mg 0.4 mg, IntraVENous, Every 5 min PRN, opioid reversal, respiratory depression, Starting on Tue09/20/23 at 0753, +++ For RR <10, pinpoint pupils, over sedation for opioid reversal - MUST notify internal combustion engine inspector provider immediately after first dose, may give IM or SQ if no IV access +++ ondansetron (Zofran) injection 4 mg(Linked Group 2) 4 mg, IntraVENous, Every 6 hours PRN, nausea, vomiting, Starting on Tue09/20/23 at 0003, 1st Line. Give IV if patient is unable to take orally. If inadequate response within 60 minutes, proceed to next-line agent or contact provider if no further options ordered. 0741 (See Alternative - Provider: Jennifer Montes RN) ondansetron ODT (Zofran-ODT) disintegrating tablet 4 mg(Linked Group 2) 4 mg, Oral, Every 8 hours PRN, nausea, vomiting, Starting on Tue09/20/23 at 0003, 1st Line. If inadequate response within 60 minutes, proceed to next-line agent or contact provider if no further options ordered. Patient should allow tablet to dissolve on tongue. Do not remove from blister pack until just before administering. 0741 (Given - Provider: Jennifer Montes, CHARLEY) oxyCODONE (Roxicodone) immediate release tablet 5 mg 5 mg, Oral, Every 6 hours PRN, moderate pain (4-6), severe pain (7-10), Starting on Tue09/20/23 at 0749 1043 (Given - Provider: Deanna Vaughan, RN)1729 (Given - Provider: Deanna Vaughan RN) 0434 (Given - Provider: Maeve Ryan RN)1014 (Given - Provider: Jennifer Montes, RN)1748 (Given - Provider: Jennifer Montes, RN) perflutren protein A microsphere (Optison) 3 mL in sodium chloride (PF) 0.9 % 10 mL IV syringe 0-10 mL, IntraVENous, IMG once PRN, other, Suboptimal echo image, Starting on Tue09/20/23 at 0813, For 1 dose, CV Procedural Medications, Administer via slow IVP for suboptimal echocardiogram enhancement. May administer as divided doses to reach optimal image enhancement polyethylene glycol (PEG) 3350 (Miralax) packet 17 g 17 g, Oral, Daily PRN, constipation, Starting on Tue09/20/23 at 0003, 1st line for treatment of constipation - give scheduled if no bowel movement in past 24 hours. QUEtiapine (SEROquel) tablet 50 mg 50 mg, Oral, Nightly PRN, insomnia, Starting on Tue09/21/23 at 1630 Linked Groups Order Group 1: acetaminophen (Tylenol) tablet 650 mgJump to med 650 mg, Oral, Every 6 hours PRN, mild pain (1-3), fever, For temp greater than 100.4 F (38 C), Starting on Tue09/20/23 at 0003, Maximum dose of acetaminophen is 4000 mg from all sources in 24 hours. Or acetaminophen (Tylenol) suppository 650 mgJump to med 650 mg, Rectal, Every 6 hours PRN, mild pain (1-3), fever, For temp greater than 100.4 F (38 C), Starting on Tue09/20/23 at 0003, Administer if oral route cannot be used. Maximum dose of acetaminophen is 4000 mg from all sources in 24 hours. Group 2: ondansetron ODT (Zofran-ODT) disintegrating tablet 4 mgJump to med 4 mg, Oral, Every 8 hours PRN, nausea, vomiting, Starting on Tue09/20/23 at 0003, 1st Line. If inadequate response within 60 minutes, proceed to next-line agent or contact provider if no further options ordered. Patient should allow tablet to dissolve on tongue. Do not remove from blister pack until just before administering. Or ondansetron (Zofran) injection 4 mgJump to med 4 mg, IntraVENous, Every 6 hours PRN, nausea, vomiting, Starting on Tue09/20/23 at 0003, 1st Line. Give IV if patient is unable to take orally. If inadequate response within 60 minutes, proceed to next-line agent or contact provider if no further options ordered. Scheduled Medication Order 10/14/2023 10/15/2023 10/16/2023 Lidocaine 4 % patch 1 patch 1 patch, TransDERmal, Administer over 12 Hours, Once, On 10/16/23 at 1950, For 1 dose, Apply patch to back. Patch may remain in place for up to 12 hours in any 24 hour period. 2000 (Medication Linda lied - Provider: Ray Isaac RN)2231 (Due: Medication Removed - Provider: Automatic Discharge Provider - Comment: Time automatically adjusted from order being discontinued) oxyCODONE-acetaminophen (Percocet) 5-325 MG per tablet 1 tablet (COMPLETED) 1 tablet, Oral, Once, On 10/16/23 at 1950, For 1 dose, Maximum dose of acetaminophen is 4000 mg from all sources in 24 hours. 2000 (Given - Provid er: Ray Isaac RN) Scheduled Medication Order 05/22/2022 05/23/2022 05/24/2022 atorvastatin (Lipitor) tablet 40 mg 40 mg, Oral, Nightly, First dose on Tue05/21/22 at 2100 2127 (Given - Provider: Rocio Chaves LPN) 1999 (Given - Provider: Jennifer Hartley RN) buPROPion XL (Wellbutrin XL) 24 hr tablet 150 mg 150 mg, Oral, Daily, First dose on Tue05/21/22 at 0800, Do not crush, chew, or split. 1043 (Given - Provider: Nicole Swift RN) 0942 (Given - Provider: Nicole Swift RN) 0748 (Given - Provider: Patsy Wynn, CHARLEY) clonazePAM (KlonoPIN) tablet 0.5 mg 0.5 mg, Oral, Nightly, First dose on Tue05/21/22 at 2100 2127 (Given - Provider: Rocio Chaves LPN) 1999 (Given - Provider: Jennifer Hartley, RN) enoxaparin (Lovenox) syringe 40 mg 40 mg, SubCUTAneous, Every 24 hours scheduled (Daily), First dose on Tue05/23/22 at 1800, Indication of Use: Prophylaxis-DVT/PE, Indications: Prophylaxis of Venous Thromboembolism 1999 (Given - Provider: Jennifer Hartley, RN) 075 (Given - Provider: Patsy Wynn, CHARLEY) fluticasone (Flonase) nasal spray 2 spray 2 spray, Each Nostril, Daily, First dose on Tue05/21/22 at 0900, Shake gently. Before first use, prime pump (press 6 times until fine spray appears). After use, clean tip and replace cap. 0900 (Not Given - Provider: Nicole Swift RN - Reason: Patient/family refused) 0942 (Given - Provider: Nicole Swift RN) 0749 (Given - Provider: Patsy Wynn, CHARLEY) gabapentin (Neurontin) tablet 600 mg 600 mg, Oral, Daily, First dose on Tue05/21/22 at 0900 1043 (Given - Provider: Nicole Swift RN) 0942 (Given - Provider: Nicole Swift RN) 0753 (Given - Provider: Patsy Wynn, RN) ipratropium-albuterol (Duo-Neb) 0.5-2.5 mg/3 mL nebulizer solution 3 mL 3 mL, Nebulization, 3 times daily, First dose on Tue05/21/22 at 0800 0952 (Given - Provider: Lorenzo Crawford RCP)1351 (Given - Provider: Shala Perry RCP)2030 (Given - Provider: Kaykay Ambriz RCP) 0840 (Given - Provider: Yesenia Salas RCP)1349 (Given - Provider: Yesenia Salas RCP)2123 (Not Given - Provider: Emanuel Le RCP - Reason: Other - Comment: sleeping) 0752 (Given - Provider: Jessica De León RCP)1224 (Not Given - Provider: Jessica De León RCP - Reason: Patient not available - Comment: eating) montelukast (Singulair) tablet 10 mg 10 mg, Oral, Nightly, First dose on Tue05/21/22 at 2100 2127 (Given - Provider: Rocio Chaves LPN) 2000 (Given - Provider: Jennifer Hartley RN) sertraline (Zoloft) tablet 200 mg 200 mg, Oral, Daily, First dose on Tue05/21/22 at 0800 1043 (Given - Provider: Nicole Swift RN) 0942 (Given - Provider: Nicole Swift RN) 0748 (Given - Provider: Patsy Wynn, CHARLEY) sodium chloride 0.9% (NS) flush 5-40 mL 5-40 mL, IntraVENous, Every 12 hours, First dose on Tue05/21/22 at 0530, For Line Patency: Peripheral IV = 5 mL; Midline or Central Line = 10 mL/lumen. If following IV push medication, administer flush at same rate as the IV push. Flush volume is determined by type of infusion therapy being given. For non-viscous solutions use: Peripheral IV = 5 mL Midline or Central Line = 10 mL/lumen For viscous solutions (i.e. blood components, parenteral nutrition, contrast media, or after obtaining blood sample) use: Peripheral IV = 10 mL Midline or Central Line = 20 mL/lumen 0450 (Given - Provider: Jennifer Hartley RN)1730 (Not Given - Provider: Nicole Swift RN - Reason: Loss of IV access) 0530 (Not Given - Provider: Rocio Chaves LPN - Reason: Patient/family refused)1730 (Not Given - Provider: Nicole Swift RN - Reason: Loss of IV access) 0530 (Canceled Entry - Provider: Jennifer Hartley RN)1730 (Canceled Entry - Provider: Patsy Wynn, CHARLEY) PRN Medication Order 05/22/2022 05/23/2022 05/24/2022 acetaminophen (Tylenol) suppository 650 mg(Linked Group 1) 650 mg, Rectal, Every 6 hours PRN, mild pain (1-3), fever, For temp greater than 100.4 F (38 C), Starting on Tue05/21/22 at 0525, Administer if oral route cannot be used. Maximum dose of acetaminophen is 4000 mg from all sources in 24 hours. 0101 (See Alternativ e - Provider: Jennifer Hartley RN) acetaminophen (Tylenol) tablet 650 mg(Linked Group 1) 650 mg, Oral, Every 6 hours PRN, mild pain (1-3), fever, For temp greater than 100.4 F (38 C), Starting on Tue05/21/22 at 0525, Maximum dose of acetaminophen is 4000 mg from all sources in 24 hours. 0101 (Given - Provider: Jennifer Hartley RN) albuterol 108 (90 Base) MCG/ACT inhaler 2 puff 2 puff, Inhalation, Every 4 hours PRN, wheezing, shortness of breath, Starting on Tue05/21/22 at 0525 ibuprofen tablet 400 mg (COMPLETED) 400 mg, Oral, Once PRN, mild pain (1-3), Starting on Tue05/23/22 at 0628, For 1 dose 0643 (Given - Provider: Rocio Chaves LPN) melatonin tablet 6 mg 6 mg, Oral, Nightly PRN, sleep, Starting on Tue05/21/22 at 0525 2127 (Given - Provider: Rocio Chaves LPN) naloxone (Narcan) injection 0.4 mg 0.4 mg, IntraVENous, PRN, opioid reversal, Starting on Tue05/21/22 at 0745 ondansetron (Zofran) injection 4 mg(Linked Group 2) 4 mg, IntraVENous, Every 6 hours PRN, nausea, vomiting, Starting on Tue05/21/22 at 0525, 1st Line. Give IV if patient is unable to take orally. If inadequate response within 60 minutes, proceed to next-line agent or contact provider if no further options ordered. ondansetron ODT (Zofran-ODT) disintegrating tablet 4 mg(Linked Group 2) 4 mg, Oral, Every 8 hours PRN, nausea, vomiting, Starting on Tue05/21/22 at 0525, 1st Line. If inadequate response within 60 minutes, proceed to next-line agent or contact provider if no further options ordered. Patient should allow tablet to dissolve on tongue. Do not remove from blister pack until just before administering. oxyCODONE-acetaminophen (Percocet) 5-325 MG per tablet 1 tablet 1 tablet, Oral, Every 6 hours PRN, moderate pain (4-6), Starting on Tue05/21/22 at 0828, Maximum dose of acetaminophen is 4000 mg from all sources in 24 hours. oxyCODONE-acetaminophen (Percocet) 5-325 MG per tablet 2 tablet 2 tablet, Oral, Every 6 hours PRN, severe pain (7-10), Starting on Tue05/21/22 at 0828, Maximum dose of acetaminophen is 4000 mg from all sources in 24 hours. 0511 (Given - Provider: Jennifer Hartley RN)1219 (Given - Provider: Nicole Swift RN)1841 (Given - Provider: Nicole Swift RN) 0053 (Given - Provider: Rocio Chaves LPN)0656 (Given - Provider: Rocio Chaves LPN)1255 (Given - Provider: Nicole Swift RN)1959 (Given - Provider: Jennifer Hartley RN) 0211 (Given - Provider: Jennifer Hartley RN)0748 (Given - Provider: Patsy Wynn, CHARLEY)1429 (Given - Provider: Patsy Wynn, CHARLEY) polyethylene glycol (PEG) 3350 (Miralax) packet 17 g 17 g, Oral, Daily PRN, constipation, Starting on Tue05/21/22 at 0525, 1st line for treatment of constipation - give scheduled if no bowel movement in past 24 hours. 0946 (Given - Provider: Nicole Swift RN) sodium chloride 0.9 % infusion 5-250 mL/hr, IntraVENous, PRN, if patient receiving piggyback infusions and maintenance fluids are not ordered OR KVO fluids to protect IV site / prevent frequent line interruptions / long duration, Starting on Tue05/21/22 at 0525, For piggyback infusion, administer at same rate as piggyback for a total of 25 mL. Enter 25 mL into dose field and piggyback rate into rate field of order. If piggyback is infusing at a rate less than 100 mL/hr, enter 25 mL into dose field and 100 mL/hr into rate field of order. For KVO fluids, enter rate of 20 mL/hr or less into rate field of order. sodium chloride 0.9% (NS) flush 5-40 mL 5-40 mL, IntraVENous, PRN, line care, After every IV line use, Starting on Tue05/21/22 at 0525, For Line Patency: Peripheral IV = 5 mL; Midline or Central Line = 10 mL/lumen. If following IV push medication, administer flush at same rate as the IV push. Flush volume is determined by type of infusion therapy being given. For non-viscous solutions use: Peripheral IV = 5 mL Midline or Central Line = 10 mL/lumen For viscous solutions (i.e. blood components, parenteral nutrition, contrast media, or after obtaining blood sample) use: Peripheral IV = 10 mL Midline or Central Line = 20 mL/lumen Linked Groups Order Group 1: acetaminophen (Tylenol) tablet 650 mgJump to med 650 mg, Oral, Every 6 hours PRN, mild pain (1-3), fever, For temp greater than 100.4 F (38 C), Starting on Tue05/21/22 at 0525
Maximum dose of acetaminophen is 4000 mg from all sources in 24 hours.
Or acetaminophen (Tylenol) suppository 650 mgJump to med 650 mg, Rectal, Every 6 hours PRN, mild pain (1-3), fever, For temp greater than 100.4 F (38 C), Starting on Tue05/21/22 at 0525
Administer if oral route cannot be used. Maximum dose of acetaminophen is 4000 mg from all sources in 24 hours.
Group 2: ondansetron ODT (Zofran-ODT) disintegrating tablet 4 mgJump to med 4 mg, Oral, Every 8 hours PRN, nausea, vomiting, Starting on Tue05/21/22 at 0525
1st Line. If inadequate response within 60 minutes, proceed to next-line agent or contact provider if no further options ordered. Patient should allow tablet to dissolve on tongue. Do not remove from blister pack until just before administering.
Or ondansetron (Zofran) injection 4 mgJump to med 4 mg, IntraVENous, Every 6 hours PRN, nausea, vomiting, Starting on Tue05/21/22 at 0525
1st Line. Give IV if patient is unable to take orally. If inadequate response within 60 minutes, proceed to next-line agent or contact provider if no further options ordered.
Scheduled Medication Order 04/26/2024 04/27/2024 04/28/2024 ketorolac (Toradol) injection 15 mg (COMPLETED) 15 mg, IntraVENous, Once, On 04/28/24 at 0115, For 1 dose 0120 (Given - Provid er: Erna Cooper, RN) sodium chloride 0.9 % bolus 1,000 mL (COMPLETED) 1,000 mL, IntraVENous, at 1,000 mL/hr, Administer over 1 Hours, Once, On Tue04/27/24 at 2350, For 1 dose 2358 (New Bag - Provider: Desiree Rangel, RN) 0120 (Stopped - Provider: Erna Cooper, RN) Scheduled Medication Order 08/06/2024 08/07/2024 08/08/2024 acetaminophen (Tylenol) tablet 650 mg 650 mg, Oral, 2 times daily, First dose on Tue07/31/24 at 1030, Maximum dose of acetaminophen is 4000 mg from all sources in 24 hours. 0841 (Given - Provider: Neelam Badillo, CHARLEY)2024 (Given - Provider: Waldemar Holbrook, RN) 0901 (Given - Provider: Lizett Rizvi, RN)2038 (Given - Provider: Sadie Rodriguez, CHARLEY) 1014 (Given - Provider: Gabriela Rosa, CHARLEY) albuterol (2.5 MG/3ML) 0.083% nebulizer solution 2.5 mg 2.5 mg, Nebulization, 2 times daily, First dose on Tue08/04/24 at 0800, Initiate RT Bronchodilator Protocol? Yes 0911 (Given - Provider: Phillip Snyder RCP)2028 (Given - Provider: Pallavi Chairez RCP) 0838 (Given - Provider: Rosa Fiore RCP)2026 (Given - Provider: Luz Pruett, SHARONA) 0859 (Given - Provider: Kimber Alvarado RCP) aspirin EC tablet 81 mg 81 mg, Oral, Daily, First dose on Tue07/31/24 at 0900, Do not crush, chew, or split. 0841 (Given - Provider: Neelam Badillo RN) 0900 (Given - Provider: Lizett Rizvi RN) 0829 (Given - Provider: Gabriela Rosa, CHARLEY) buPROPion XL (Wellbutrin XL) 24 hr tablet 150 mg 150 mg, Oral, Daily, First dose on Tue07/31/24 at 0800, Do not crush, chew, or split. 0841 (Given - Provider: Neelam Badillo RN) 0900 (Given - Provider: Lizett Rizvi RN) 0829 (Given - Provider: Gabriela Rosa RN) busPIRone (Buspar) tablet 15 mg 15 mg, Oral, 2 times daily, First dose on Tue07/30/24 at 2310 0842 (Given - Provider: Neelam Badillo RN)2026 (Given - Provider: Waldemar Holbrook RN) 0900 (Given - Provider: Lizett Rizvi RN)2239 (Given - Provider: Sadie Rodriguez RN) 0829 (Given - Provider: Gabriela Rosa RN) calcitonin (Miacalcin) injection 50 Units 50 Units, IntraMUSCular, Daily, First dose on Tue07/31/24 at 0900 0839 (Given - Provider: Neelam Badillo RN) 0910 (Given - Provider: Lizett Rizvi RN) 1046 (Given - Provider: Gabriela Rosa RN) cefepime (Maxipime) 2,000 mg in sodium chloride 0.9 % 50 mL IVPB Mini-Bag Plus (CANCELED) 2,000 mg, IntraVENous, at 12.5 mL/hr, Administer over 4 Hours, Every 8 hours, First dose (after last modification) on Tue08/06/24 at 0800, Mini-Bag Plus bag, Suspected Indication (Select all that apply): Pneumonia (HAP) 0840 (New Bag - Provider: Neelam Badillo RN)1305 (Stopped - Provider: Neelam Badillo RN)1630 (New Bag - Provider: Neelam Badillo RN)2145 (Stopped - Provider: Waldemar Holbrook RN) 0047 (New Bag - Provider: Waldemar Holbrook RN)0612 (Stopped - Provider: Waldemar Holbrook RN)0856 (New Bag - Provider: Lizett Rizvi RN)1312 (Stopped - Provider: Lizett Rizvi RN)1612 (New Bag - Provider: Lizett Rizvi RN)2031 (Stopped - Provider: Sadie Rodriguez RN) 0019 (New Bag - Provider: Sadie Rodriguez RN)0410 (Stopped - Provider: Sadie Rodriguez RN)0834 (New Bag - Provider: Gabriela Rosa, CHARLEY)1239 (Stopped - Provider: Gabriela Rosa, CHARLEY) cetirizine (ZyrTEC) tablet 5 mg 5 mg, Oral, Daily, First dose on Tue08/01/24 at 1815 0842 (Given - Provider: Neelam Badillo RN) 0859 (Given - Provider: Lizett Rizvi RN) 0828 (Given - Provider: Gabriela Rosa, CHARLEY) enoxaparin (Lovenox) syringe 30 mg 30 mg, SubCUTAneous, Every 24 hours scheduled (Daily), First dose on Tue07/31/24 at 0900, Indication of Use: Prophylaxis-DVT/PE, Indications: Prophylaxis of Venous Thromboembolism 0840 (Given - Provider: Neelam Badillo RN) 0900 (Given - Provider: Lizett Rizvi RN) 0828 (Given - Provider: Gabriela Rosa, CHARLEY) fluticasone (Flonase) nasal spray 2 spray 2 spray, Each Nostril, Daily, First dose on Tue07/31/24 at 0900, Shake gently. Before first use, prime pump (press 6 times until fine spray appears). After use, clean tip and replace cap. 0849 (Not Given - Provider: Neelam Badillo RN - Reason: Patient/family refused) 0903 (Given - Provider: Lizett Rizvi RN) 0839 (Not Given - Provider: Gabriela Rosa RN - Reason: Patient/family refused) folic acid (Folvite) tablet 1 mg 1 mg, Oral, Daily, First dose on Tue08/07/24 at 0900 0859 (Given - Provider: Lizett Rizvi RN) 0829 (Given - Provider: Gabriela Rosa, CHARLEY) folic acid 1 mg in dextrose 5 % 50 mL IVPB (COMPLETED) 1 mg, IntraVENous, at 100 mL/hr, Administer over 30 Minutes, Once, On Tue08/06/24 at 1500, For 1 dose 1507 (New Bag - Provider: Neelam Badillo RN)1620 (Stopped - Provider: Neelam Badillo RN) melatonin tablet 3 mg 3 mg, Oral, Nightly, First dose on Tue07/30/24 at 2310 2025 (Given - Provider: Waldemar Holbrook RN) 2039 (Given - Provider: Sadie Rodriguez RN) mirtazapine (Remeron) tablet 15 mg 15 mg, Oral, Nightly, First dose on Tue07/30/24 at 2310 2025 (Given - Provider: Waldemar Holbrook RN) 2051 (Given - Provider: Sadie Rodriguez RN) mometasone-formoterol (Dulera 200) 200-5 MCG/ACT inhaler 2 puff 2 puff, Inhalation, 2 times daily, First dose on Tue07/30/24 at 2310, Rinse mouth with water after use to reduce aftertaste and incidence of candidiasis. Do not swallow. 0839 (Given - Provider: Neelam Badillo RN)2022 (Given - Provider: Waldemar Holbrook RN) 0903 (Given - Provider: Lizett Rizvi RN)2037 (Given - Provider: Sadie Rodriguez, CHARLEY) 0834 (Given - Provider: Gabriela Rosa, CHARLEY) montelukast (Singulair) tablet 10 mg 10 mg, Oral, Nightly, First dose on Tue07/30/24 at 2310 2025 (Given - Provider: Waldemar Holbrook RN) 2051 (Given - Provider: Sadie Rodriguez, CHARLEY) PARoxetine (Paxil) tablet 30 mg 30 mg, Oral, Every morning, First dose (after last modification) on Tue08/02/24 at 0900 0841 (Given - Provider: Neelam Badillo RN) 0859 (Given - Provider: Lizett Rizvi RN) 0828 (Given - Provider: Gabriela Rosa, CHARLEY) predniSONE (Deltasone) tablet 10 mg (COMPLETED)(Linked Group 1) 10 mg, Oral, Daily, First dose on Tue08/07/24 at 0900, For 2 days 0900 (Given - Provider: Lizett Rizvi RN) 0828 (Given - Provider: Gabriela Rosa, RN) predniSONE (Deltasone) tablet 20 mg (COMPLETED)(Linked Group 1) 20 mg, Oral, Daily, First dose on Tue08/05/24 at 0900, For 2 days 0841 (Given - Provider: Neelam Badillo, CHARLEY) tiotropium (Spiriva Respimat) 2.5 MCG/ACT inhaler 2 puff 2 puff, Inhalation, Daily, First dose on Tue07/31/24 at 0800, Instruct to hold breath for 10 seconds after each inhalation. Before first use, prime inhaler by actuating until aerosal cloud is seen, then actuating 3 more times. 0839 (Given - Provider: Neelam Badillo, CHARLEY) 0903 (Given - Provider: Lizett Rizvi RN) 0834 (Given - Provider: Gabriela Rosa, CHARLEY) PRN Medication Order 08/06/2024 08/07/2024 08/08/2024 acetaminophen (Tylenol) suppository 650 mg(Linked Group 2) 650 mg, Rectal, Every 6 hours PRN, fever, For temp greater than 100.4 F (38 C), Starting on Tue07/30/24 at 2312, Administer if oral route cannot be used. Maximum dose of acetaminophen is 4000 mg from all sources in 24 hours. acetaminophen (Tylenol) tablet 650 mg(Linked Group 2) 650 mg, Oral, Every 6 hours PRN, mild pain (1-3), fever, For temp greater than 100.4 F (38 C), Starting on Tue07/30/24 at 2312, Maximum dose of acetaminophen is 4000 mg from all sources in 24 hours. albuterol (2.5 MG/3ML) 0.083% nebulizer solution 2.5 mg 2.5 mg, Nebulization, Every 4 hours PRN, wheezing, shortness of breath, Starting on Tue07/30/24 at 2149, Initiate RT Bronchodilator Protocol? Yes 1613 (Given - Provider: Rosa Fiore RCP) 1321 (Given - Provider: Kimber Alvarado RCP) iopamidol (Isovue-370) 76 % injection 75 mL 75 mL, IntraVENous, IMG once PRN, contrast, Starting on Tue08/03/24 at 0917, For 1 dose morphine (MSIR) tablet 15 mg 15 mg, Oral, Every 4 hours PRN, severe pain (7-10), shortness of breath, Starting on Tue08/01/24 at 1407 0454 (Given - Provider: Linda Brasher RN)0856 (Given - Provider: Neelam Badillo, RN)1412 (Given - Provider: Neelam Badillo, RN)1851 (Given - Provider: Neelam Badillo, RN) 0046 (Given - Provider: Waldemar Holbrook, RN)0515 (Given - Provider: Waldemar Holbrook, RN)0914 (Given - Provider: Lizett Rizvi, RN)1325 (Given - Provider: Lizett Rizvi, RN)1743 (Given - Provider: Lizett Rizvi, RN)2239 (Given - Provider: Sadie Rodriguez RN) 0829 (Given - Provider: Gabriela Rosa, CHARLEY)1342 (Given - Provider: Gabriela Rosa, CHARLEY) naloxone (Narcan) injection 0.4 mg 0.4 mg, IntraVENous, Every 5 min PRN, opioid reversal, respiratory depression, Starting on Tue07/30/24 at 2308, +++ For RR <10, pinpoint pupils, over sedation for opioid reversal - MUST notify internal combustion engine inspector provider immediately after first dose, may give IM or SQ if no IV access +++ ondansetron (Zofran) injection 4 mg(Linked Group 3) 4 mg, IntraVENous, Every 6 hours PRN, nausea, vomiting, Starting on Tue07/30/24 at 2312, 1st Line. Give IV if patient is unable to take orally. If inadequate response within 60 minutes, proceed to next-line agent or contact provider if no further options ordered. ondansetron ODT (Zofran-ODT) disintegrating tablet 4 mg(Linked Group 3) 4 mg, Oral, Every 8 hours PRN, nausea, vomiting, Starting on Tue07/30/24 at 2312, 1st Line. If inadequate response within 60 minutes, proceed to next-line agent or contact provider if no further options ordered. Patient should allow tablet to dissolve on tongue. Do not remove from blister pack until just before administering. polyethylene glycol (PEG) 3350 (Miralax) packet 17 g 17 g, Oral, Daily PRN, constipation, Starting on Tue07/30/24 at 2312, 1st line for treatment of constipation - give scheduled if no bowel movement in past 24 hours. QUEtiapine (SEROquel) tablet 50 mg 50 mg, Oral, Nightly PRN, agitation, Anxiety and Sleep, Starting on Tue07/31/24 at 1007 2031 (Given - Provider: Waldemar Holbrook, RN) 2300 (Given - Provider: Sadie Rodriguez RN) sodium chloride ([place]) 0.65 % nasal spray 2 spray 2 spray, Each Nostril, Every 2 hour PRN, congestion, Starting on Tue08/01/24 at 1751 Linked Groups Order Group 1: predniSONE (Deltasone) tablet 30 mg (COMPLETED) 30 mg, Oral, Daily, First dose on Tue08/03/24 at 0900, For 2 days Followed by predniSONE (Deltasone) tablet 20 mg (COMPLETED)Jump to med 20 mg, Oral, Daily, First dose on Tue08/05/24 at 0900, For 2 days Followed by predniSONE (Deltasone) tablet 10 mg (COMPLETED)Jump to med 10 mg, Oral, Daily, First dose on Tue08/07/24 at 0900, For 2 days Group 2: acetaminophen (Tylenol) tablet 650 mgJump to med 650 mg, Oral, Every 6 hours PRN, mild pain (1-3), fever, For temp greater than 100.4 F (38 C), Starting on Tue07/30/24 at 2312, Maximum dose of acetaminophen is 4000 mg from all sources in 24 hours. Or acetaminophen (Tylenol) suppository 650 mgJump to med 650 mg, Rectal, Every 6 hours PRN, fever, For temp greater than 100.4 F (38 C), Starting on Tue07/30/24 at 2312, Administer if oral route cannot be used. Maximum dose of acetaminophen is 4000 mg from all sources in 24 hours. Group 3: ondansetron ODT (Zofran-ODT) disintegrating tablet 4 mgJump to med 4 mg, Oral, Every 8 hours PRN, nausea, vomiting, Starting on Tue07/30/24 at 2312, 1st Line. If inadequate response within 60 minutes, proceed to next-line agent or contact provider if no further options ordered. Patient should allow tablet to dissolve on tongue. Do not remove from blister pack until just before administering. Or ondansetron (Zofran) injection 4 mgJump to med 4 mg, IntraVENous, Every 6 hours PRN, nausea, vomiting, Starting on 07/30/24 at 2312, 1st Line. Give IV if patient is unable to take orally. If inadequate response within 60 minutes, proceed to next-line agent or contact provider if no further options ordered. Source Comments (unrecognize d section and content) In the event this informatio n is protected by the Federal Confidentiality of Alcohol and Drug Abuse Patient Records regulations: The Federal rules restrict any use of the information to criminally investigate or prosecute any alcohol or drug abuse patient.[facility]In the event this information is protected by the Federal Confidentiality of Alcohol and Drug Abuse Patient Records regulations: The Federal rules restrict any use of the information to criminally investigate or prosecute any alcohol or drug abuse patient.[facility]In the event this information is protected by the Federal Confidentiality of Alcohol and Drug Abuse Patient Records regulations: The Federal rules restrict any use of the information to criminally investigate or prosecute any alcohol or drug abuse patient.[facility]In the event this information is protected by the Federal Confidentiality of Alcohol and Drug Abuse Patient Records regulations: The Federal rules restrict any use of the information to criminally investigate or prosecute any alcohol or drug abuse patient.[facility]In the event this information is protected by the Federal Confidentiality of Alcohol and Drug Abuse Patient Records regulations: The Federal rules restrict any use of the information to criminally investigate or prosecute any alcohol or drug abuse patient.[facility]In the event this information is protected by the Federal Confidentiality of Alcohol and Drug Abuse Patient Records regulations: The Federal rules restrict any use of the information to criminally investigate or prosecute any alcohol or drug abuse patient.[facility]In the event this information is protected by the Federal Confidentiality of Alcohol and Drug Abuse Patient Records regulations: The Federal rules restrict any use of the information to criminally investigate or prosecute any alcohol or drug abuse patient.[facility]In the event this information is protected by the Federal Confidentiality of Alcohol and Drug Abuse Patient Records regulations: The Federal rules restrict any use of the information to criminally investigate or prosecute any alcohol or drug abuse patient.[facility]In the event this information is protected by the Federal Confidentiality of Alcohol and Drug Abuse Patient Records regulations: The Federal rules restrict any use of the information to criminally investigate or prosecute any alcohol or drug abuse patient.[facility]In the event this information is protected by the Federal Confidentiality of Alcohol and Drug Abuse Patient Records regulations: The Federal rules restrict any use of the information to criminally investigate or prosecute any alcohol or drug abuse patient.[facility]In the event this information is protected by the Federal Confidentiality of Alcohol and Drug Abuse Patient Records regulations: The Federal rules restrict any use of the information to criminally investigate or prosecute any alcohol or drug abuse patient.[facility]In the event this information is protected by the Federal Confidentiality of Alcohol and Drug Abuse Patient Records regulations: The Federal rules restrict any use of the information to criminally investigate or prosecute any alcohol or drug abuse patient.[facility]In the event this information is protected by the Federal Confidentiality of Alcohol and Drug Abuse Patient Records regulations: The Federal rules restrict any use of the information to criminally investigate or prosecute any alcohol or drug abuse patient.[facility]In the event this information is protected by the Federal Confidentiality of Alcohol and Drug Abuse Patient Records regulations: The Federal rules restrict any use of the information to criminally investigate or prosecute any alcohol or drug abuse patient.[facility]In the event this information is protected by the Federal Confidentiality of Alcohol and Drug Abuse Patient Records regulations: The Federal rules restrict any use of the information to criminally investigate or prosecute any alcohol or drug abuse patient.[facility]In the event this information is protected by the Federal Confidentiality of Alcohol and Drug Abuse Patient Records regulations: The Federal rules restrict any use of the information to criminally investigate or prosecute any alcohol or drug abuse patient.[facility]In the event this information is protected by the Federal Confidentiality of Alcohol and Drug Abuse Patient Records regulations: The Federal rules restrict any use of the information to criminally investigate or prosecute any alcohol or drug abuse patient.[facility]In the event this information is protected by the Federal Confidentiality of Alcohol and Drug Abuse Patient Records regulations: The Federal rules restrict any use of the information to criminally investigate or prosecute any alcohol or drug abuse patient.[facility]In the event this information is protected by the Federal Confidentiality of Alcohol and Drug Abuse Patient Records regulations: The Federal rules restrict any use of the information to criminally investigate or prosecute any alcohol or drug abuse patient.[facility]In the event this information is protected by the Federal Confidentiality of Alcohol and Drug Abuse Patient Records regulations: The Federal rules restrict any use of the information to criminally investigate or prosecute any alcohol or drug abuse patient.[facility]In the event this information is protected by the Federal Confidentiality of Alcohol and Drug Abuse Patient Records regulations: The Federal rules restrict any use of the information to criminally investigate or prosecute any alcohol or drug abuse patient.[facility]In the event this information is protected by the Federal Confidentiality of Alcohol and Drug Abuse Patient Records regulations: The Federal rules restrict any use of the information to criminally investigate or prosecute any alcohol or drug abuse patient.[facility]In the event this information is protected by the Federal Confidentiality of Alcohol and Drug Abuse Patient Records regulations: The Federal rules restrict any use of the information to criminally investigate or prosecute any alcohol or drug abuse patient.[facility]In the event this information is protected by the Federal Confidentiality of Alcohol and Drug Abuse Patient Records regulations: The Federal rules restrict any use of the information to criminally investigate or prosecute any alcohol or drug abuse patient.[facility]In the event this information is protected by the Federal Confidentiality of Alcohol and Drug Abuse Patient Records regulations: The Federal rules restrict any use of the information to criminally investigate or prosecute any alcohol or drug abuse patient.[facility]In the event this information is protected by the Federal Confidentiality of Alcohol and Drug Abuse Patient Records regulations: The Federal rules restrict any use of the information to criminally investigate or prosecute any alcohol or drug abuse patient.[facility]In the event this information is protected by the Federal Confidentiality of Alcohol and Drug Abuse Patient Records regulations: The Federal rules restrict any use of the information to criminally investigate or prosecute any alcohol or drug abuse patient.[facility]In the event this information is protected by the Federal Confidentiality of Alcohol and Drug Abuse Patient Records regulations: The Federal rules restrict any use of the information to criminally investigate or prosecute any alcohol or drug abuse patient.[facility]In the event this information is protected by the Federal Confidentiality of Alcohol and Drug Abuse Patient Records regulations: The Federal rules restrict any use of the information to criminally investigate or prosecute any alcohol or drug abuse patient.[facility]In the event this information is protected by the Federal Confidentiality of Alcohol and Drug Abuse Patient Records regulations: The Federal rules restrict any use of the information to criminally investigate or prosecute any alcohol or drug abuse patient.[facility]In the event this information is protected by the Federal Confidentiality of Alcohol and Drug Abuse Patient Records regulations: The Federal rules restrict any use of the information to criminally investigate or prosecute any alcohol or drug abuse patient.[facility]In the event this information is protected by the Federal Confidentiality of Alcohol and Drug Abuse Patient Records regulations: The Federal rules restrict any use of the information to criminally investigate or prosecute any alcohol or drug abuse patient.[facility]In the event this information is protected by the Federal Confidentiality of Alcohol and Drug Abuse Patient Records regulations: The Federal rules restrict any use of the information to criminally investigate or prosecute any alcohol or drug abuse patient.[facility]In the event this information is protected by the Federal Confidentiality of Alcohol and Drug Abuse Patient Records regulations: The Federal rules restrict any use of the information to criminally investigate or prosecute any alcohol or drug abuse patient.[facility]In the event this information is protected by the Federal Confidentiality of Alcohol and Drug Abuse Patient Records regulations: The Federal rules restrict any use of the information to criminally investigate or prosecute any alcohol or drug abuse patient.[facility]In the event this information is protected by the Federal Confidentiality of Alcohol and Drug Abuse Patient Records regulations: The Federal rules restrict any use of the information to criminally investigate or prosecute any alcohol or drug abuse patient.[facility]In the event this information is protected by the Federal Confidentiality of Alcohol and Drug Abuse Patient Records regulations: The Federal rules restrict any use of the information to criminally investigate or prosecute any alcohol or drug abuse patient.[facility]In the event this information is protected by the Federal Confidentiality of Alcohol and Drug Abuse Patient Records regulations: The Federal rules restrict any use of the information to criminally investigate or prosecute any alcohol or drug abuse patient.[facility]In the event this information is protected by the Federal Confidentiality of Alcohol and Drug Abuse Patient Records regulations: The Federal rules restrict any use of the information to criminally investigate or prosecute any alcohol or drug abuse patient.[facility]In the event this information is protected by the Federal Confidentiality of Alcohol and Drug Abuse Patient Records regulations: The Federal rules restrict any use of the information to criminally investigate or prosecute any alcohol or drug abuse patient.[facility]In the event this information is protected by the Federal Confidentiality of Alcohol and Drug Abuse Patient Records regulations: The Federal rules restrict any use of the information to criminally investigate or prosecute any alcohol or drug abuse patient.[facility]In the event this information is protected by the Federal Confidentiality of Alcohol and Drug Abuse Patient Records regulations: The Federal rules restrict any use of the information to criminally investigate or prosecute any alcohol or drug abuse patient.[facility]In the event this information is protected by the Federal Confidentiality of Alcohol and Drug Abuse Patient Records regulations: The Federal rules restrict any use of the information to criminally investigate or prosecute any alcohol or drug abuse patient.[facility]In the event this information is protected by the Federal Confidentiality of Alcohol and Drug Abuse Patient Records regulations: The Federal rules restrict any use of the information to criminally investigate or prosecute any alcohol or drug abuse patient.[facility]In the event this information is protected by the Federal Confidentiality of Alcohol and Drug Abuse Patient Records regulations: The Federal rules restrict any use of the information to criminally investigate or prosecute any alcohol or drug abuse patient.[facility]In the event this information is protected by the Federal Confidentiality of Alcohol and Drug Abuse Patient Records regulations: The Federal rules restrict any use of the information to criminally investigate or prosecute any alcohol or drug abuse patient.[facility]In the event this information is protected by the Federal Confidentiality of Alcohol and Drug Abuse Patient Records regulations: The Federal rules restrict any use of the information to criminally investigate or prosecute any alcohol or drug abuse patient.[facility]In the event this information is protected by the Federal Confidentiality of Alcohol and Drug Abuse Patient Records regulations: The Federal rules restrict any use of the information to criminally investigate or prosecute any alcohol or drug abuse patient.[facility]In the event this information is protected by the Federal Confidentiality of Alcohol and Drug Abuse Patient Records regulations: The Federal rules restrict any use of the information to criminally investigate or prosecute any alcohol or drug abuse patient.[facility]In the event this information is protected by the Federal Confidentiality of Alcohol and Drug Abuse Patient Records regulations: The Federal rules restrict any use of the information to criminally investigate or prosecute any alcohol or drug abuse patient.[facility]In the event this information is protected by the Federal Confidentiality of Alcohol and Drug Abuse Patient Records regulations: The Federal rules restrict any use of the information to criminally investigate or prosecute any alcohol or drug abuse patient.[facility]In the event this information is protected by the Federal Confidentiality of Alcohol and Drug Abuse Patient Records regulations: The Federal rules restrict any use of the information to criminally investigate or prosecute any alcohol or drug abuse patient.[facility]In the event this information is protected by the Federal Confidentiality of Alcohol and Drug Abuse Patient Records regulations: The Federal rules restrict any use of the information to criminally investigate or prosecute any alcohol or drug abuse patient.[facility]In the event this information is protected by the Federal Confidentiality of Alcohol and Drug Abuse Patient Records regulations: The Federal rules restrict any use of the information to criminally investigate or prosecute any alcohol or drug abuse patient.[facility]In the event this information is protected by the Federal Confidentiality of Alcohol and Drug Abuse Patient Records regulations: The Federal rules restrict any use of the information to criminally investigate or prosecute any alcohol or drug abuse patient.[facility]In the event this information is protected by the Federal Confidentiality of Alcohol and Drug Abuse Patient Records regulations: The Federal rules restrict any use of the information to criminally investigate or prosecute any alcohol or drug abuse patient.[facility]In the event this information is protected by the Federal Confidentiality of Alcohol and Drug Abuse Patient Records regulations: The Federal rules restrict any use of the information to criminally investigate or prosecute any alcohol or drug abuse patient.[facility]In the event this information is protected by the Federal Confidentiality of Alcohol and Drug Abuse Patient Records regulations: The Federal rules restrict any use of the information to criminally investigate or prosecute any alcohol or drug abuse patient.[facility]In the event this information is protected by the Federal Confidentiality of Alcohol and Drug Abuse Patient Records regulations: The Federal rules restrict any use of the information to criminally investigate or prosecute any alcohol or drug abuse patient.[facility]In the event this information is protected by the Federal Confidentiality of Alcohol and Drug Abuse Patient Records regulations: The Federal rules restrict any use of the information to criminally investigate or prosecute any alcohol or drug abuse patient.[facility]In the event this information is protected by the Federal Confidentiality of Alcohol and Drug Abuse Patient Records regulations: The Federal rules restrict any use of the information to criminally investigate or prosecute any alcohol or drug abuse patient.[facility]In the event this information is protected by the Federal Confidentiality of Alcohol and Drug Abuse Patient Records regulations: The Federal rules restrict any use of the information to criminally investigate or prosecute any alcohol or drug abuse patient.[facility]In the event this information is protected by the Federal Confidentiality of Alcohol and Drug Abuse Patient Records regulations: The Federal rules restrict any use of the information to criminally investigate or prosecute any alcohol or drug abuse patient.[facility] HospitalIn the event this information is protected by the Federal Confidentiality of Alcohol and Drug Abuse Patient Records regulations: The Federal rules restrict any use of the information to criminally investigate or prosecute any alcohol or drug abuse patient.[facility]In the event this information is protected by the Federal Confidentiality of Alcohol and Drug Abuse Patient Records regulations: The Federal rules restrict any use of the information to criminally investigate or prosecute any alcohol or drug abuse patient.[facility]In the event this information is protected by the Federal Confidentiality of Alcohol and Drug Abuse Patient Records regulations: The Federal rules restrict any use of the information to criminally investigate or prosecute any alcohol or drug abuse patient.[facility]In the event this information is protected by the Federal Confidentiality of Alcohol and Drug Abuse Patient Records regulations: The Federal rules restrict any use of the information to criminally investigate or prosecute any alcohol or drug abuse patient.[facility]In the event this information is protected by the Federal Confidentiality of Alcohol and Drug Abuse Patient Records regulations: The Federal rules restrict any use of the information to criminally investigate or prosecute any alcohol or drug abuse patient.[facility]In the event this information is protected by the Federal Confidentiality of Alcohol and Drug Abuse Patient Records regulations: The Federal rules restrict any use of the information to criminally investigate or prosecute any alcohol or drug abuse patient.[facility] HospitalIn the event this information is protected by the Federal Confidentiality of Alcohol and Drug Abuse Patient Records regulations: The Federal rules restrict any use of the information to criminally investigate or prosecute any alcohol or drug abuse patient.[facility]In the event this information is protected by the Federal Confidentiality of Alcohol and Drug Abuse Patient Records regulations: The Federal rules restrict any use of the information to criminally investigate or prosecute any alcohol or drug abuse patient.[facility]In the event this information is protected by the Federal Confidentiality of Alcohol and Drug Abuse Patient Records regulations: The Federal rules restrict any use of the information to criminally investigate or prosecute any alcohol or drug abuse patient.[facility]In the event this information is protected by the Federal Confidentiality of Alcohol and Drug Abuse Patient Records regulations: The Federal rules restrict any use of the information to criminally investigate or prosecute any alcohol or drug abuse patient.[facility]In the event this information is protected by the Federal Confidentiality of Alcohol and Drug Abuse Patient Records regulations: The Federal rules restrict any use of the information to criminally investigate or prosecute any alcohol or drug abuse patient.[facility]In the event this information is protected by the Federal Confidentiality of Alcohol and Drug Abuse Patient Records regulations: The Federal rules restrict any use of the information to criminally investigate or prosecute any alcohol or drug abuse patient.[facility]In the event this information is protected by the Federal Confidentiality of Alcohol and Drug Abuse Patient Records regulations: The Federal rules restrict any use of the information to criminally investigate or prosecute any alcohol or drug abuse patient.[facility]In the event this information is protected by the Federal Confidentiality of Alcohol and Drug Abuse Patient Records regulations: The Federal rules restrict any use of the information to criminally investigate or prosecute any alcohol or drug abuse patient.[facility]In the event this information is protected by the Federal Confidentiality of Alcohol and Drug Abuse Patient Records regulations: The Federal rules restrict any use of the information to criminally investigate or prosecute any alcohol or drug abuse patient.[facility]In the event this information is protected by the Federal Confidentiality of Alcohol and Drug Abuse Patient Records regulations: The Federal rules restrict any use of the information to criminally investigate or prosecute any alcohol or drug abuse patient.[facility]In the event this information is protected by the Federal Confidentiality of Alcohol and Drug Abuse Patient Records regulations: The Federal rules restrict any use of the information to criminally investigate or prosecute any alcohol or drug abuse patient.[facility]In the event this information is protected by the Federal Confidentiality of Alcohol and Drug Abuse Patient Records regulations: The Federal rules restrict any use of the information to criminally investigate or prosecute any alcohol or drug abuse patient.[facility]In the event this information is protected by the Federal Confidentiality of Alcohol and Drug Abuse Patient Records regulations: The Federal rules restrict any use of the information to criminally investigate or prosecute any alcohol or drug abuse patient.[facility]In the event this information is protected by the Federal Confidentiality of Alcohol and Drug Abuse Patient Records regulations: The Federal rules restrict any use of the information to criminally investigate or prosecute any alcohol or drug abuse patient.[facility]In the event this information is protected by the Federal Confidentiality of Alcohol and Drug Abuse Patient Records regulations: The Federal rules restrict any use of the information to criminally investigate or prosecute any alcohol or drug abuse patient.[facility]In the event this information is protected by the Federal Confidentiality of Alcohol and Drug Abuse Patient Records regulations: The Federal rules restrict any use of the information to criminally investigate or prosecute any alcohol or drug abuse patient.[facility]In the event this information is protected by the Federal Confidentiality of Alcohol and Drug Abuse Patient Records regulations: The Federal rules restrict any use of the information to criminally investigate or prosecute any alcohol or drug abuse patient.[facility]In the event this information is protected by the Federal Confidentiality of Alcohol and Drug Abuse Patient Records regulations: The Federal rules restrict any use of the information to criminally investigate or prosecute any alcohol or drug abuse patient.[facility]In the event this information is protected by the Federal Confidentiality of Alcohol and Drug Abuse Patient Records regulations: The Federal rules restrict any use of the information to criminally investigate or prosecute any alcohol or drug abuse patient.[facility]In the event this information is protected by the Federal Confidentiality of Alcohol and Drug Abuse Patient Records regulations: The Federal rules restrict any use of the information to criminally investigate or prosecute any alcohol or drug abuse patient.[facility]In the event this information is protected by the Federal Confidentiality of Alcohol and Drug Abuse Patient Records regulations: The Federal rules restrict any use of the information to criminally investigate or prosecute any alcohol or drug abuse patient.[facility]In the event this information is protected by the Federal Confidentiality of Alcohol and Drug Abuse Patient Records regulations: The Federal rules restrict any use of the information to criminally investigate or prosecute any alcohol or drug abuse patient.[facility]In the event this information is protected by the Federal Confidentiality of Alcohol and Drug Abuse Patient Records regulations: The Federal rules restrict any use of the information to criminally investigate or prosecute any alcohol or drug abuse patient.[facility]In the event this information is protected by the Federal Confidentiality of Alcohol and Drug Abuse Patient Records regulations: The Federal rules restrict any use of the information to criminally investigate or prosecute any alcohol or drug abuse patient.[facility]In the event this information is protected by the Federal Confidentiality of Alcohol and Drug Abuse Patient Records regulations: The Federal rules restrict any use of the information to criminally investigate or prosecute any alcohol or drug abuse patient.[facility]In the event this information is protected by the Federal Confidentiality of Alcohol and Drug Abuse Patient Records regulations: The Federal rules restrict any use of the information to criminally investigate or prosecute any alcohol or drug abuse patient.[facility]In the event this information is protected by the Federal Confidentiality of Alcohol and Drug Abuse Patient Records regulations: The Federal rules restrict any use of the information to criminally investigate or prosecute any alcohol or drug abuse patient.[facility]In the event this information is protected by the Federal Confidentiality of Alcohol and Drug Abuse Patient Records regulations: The Federal rules restrict any use of the information to criminally investigate or prosecute any alcohol or drug abuse patient.[facility]In the event this information is protected by the Federal Confidentiality of Alcohol and Drug Abuse Patient Records regulations: The Federal rules restrict any use of the information to criminally investigate or prosecute any alcohol or drug abuse patient.[facility]In the event this information is protected by the Federal Confidentiality of Alcohol and Drug Abuse Patient Records regulations: The Federal rules restrict any use of the information to criminally investigate or prosecute any alcohol or drug abuse patient.[facility]In the event this information is protected by the Federal Confidentiality of Alcohol and Drug Abuse Patient Records regulations: The Federal rules restrict any use of the information to criminally investigate or prosecute any alcohol or drug abuse patient.[facility]In the event this information is protected by the Federal Confidentiality of Alcohol and Drug Abuse Patient Records regulations: The Federal rules restrict any use of the information to criminally investigate or prosecute any alcohol or drug abuse patient.[facility]In the event this information is protected by the Federal Confidentiality of Alcohol and Drug Abuse Patient Records regulations: The Federal rules restrict any use of the information to criminally investigate or prosecute any alcohol or drug abuse patient.[facility]In the event this information is protected by the Federal Confidentiality of Alcohol and Drug Abuse Patient Records regulations: The Federal rules restrict any use of the information to criminally investigate or prosecute any alcohol or drug abuse patient.[facility]In the event this information is protected by the Federal Confidentiality of Alcohol and Drug Abuse Patient Records regulations: The Federal rules restrict any use of the information to criminally investigate or prosecute any alcohol or drug abuse patient.[facility]In the event this information is protected by the Federal Confidentiality of Alcohol and Drug Abuse Patient Records regulations: The Federal rules restrict any use of the information to criminally investigate or prosecute any alcohol or drug abuse patient.[facility]In the event this information is protected by the Federal Confidentiality of Alcohol and Drug Abuse Patient Records regulations: The Federal rules restrict any use of the information to criminally investigate or prosecute any alcohol or drug abuse patient.[facility]In the event this information is protected by the Federal Confidentiality of Alcohol and Drug Abuse Patient Records regulations: The Federal rules restrict any use of the information to criminally investigate or prosecute any alcohol or drug abuse patient.[facility]In the event this information is protected by the Federal Confidentiality of Alcohol and Drug Abuse Patient Records regulations: The Federal rules restrict any use of the information to criminally investigate or prosecute any alcohol or drug abuse patient.[facility]In the event this information is protected by the Federal Confidentiality of Alcohol and Drug Abuse Patient Records regulations: The Federal rules restrict any use of the information to criminally investigate or prosecute any alcohol or drug abuse patient.[facility] HospitalIn the event this information is protected by the Federal Confidentiality of Alcohol and Drug Abuse Patient Records regulations: The Federal rules restrict any use of the information to criminally investigate or prosecute any alcohol or drug abuse patient.[facility] HospitalIn the event this information is protected by the Federal Confidentiality of Alcohol and Drug Abuse Patient Records regulations: The Federal rules restrict any use of the information to criminally investigate or prosecute any alcohol or drug abuse patient.[facility] HospitalIn the event this information is protected by the Federal Confidentiality of Alcohol and Drug Abuse Patient Records regulations: The Federal rules restrict any use of the information to criminally investigate or prosecute any alcohol or drug abuse patient.[facility] HospitalIn the event this information is protected by the Federal Confidentiality of Alcohol and Drug Abuse Patient Records regulations: The Federal rules restrict any use of the information to criminally investigate or prosecute any alcohol or drug abuse patient.[facility] HospitalIn the event this information is protected by the Federal Confidentiality of Alcohol and Drug Abuse Patient Records regulations: The Federal rules restrict any use of the information to criminally investigate or prosecute any alcohol or drug abuse patient.[facility] HospitalIn the event this information is protected by the Federal Confidentiality of Alcohol and Drug Abuse Patient Records regulations: The Federal rules restrict any use of the information to criminally investigate or prosecute any alcohol or drug abuse patient.[facility] HospitalIn the event this information is protected by the Federal Confidentiality of Alcohol and Drug Abuse Patient Records regulations: The Federal rules restrict any use of the information to criminally investigate or prosecute any alcohol or drug abuse patient.[facility] HospitalIn the event this information is protected by the Federal Confidentiality of Alcohol and Drug Abuse Patient Records regulations: The Federal rules restrict any use of the information to criminally investigate or prosecute any alcohol or drug abuse patient.[facility] HospitalIn the event this information is protected by the Federal Confidentiality of Alcohol and Drug Abuse Patient Records regulations: The Federal rules restrict any use of the information to criminally investigate or prosecute any alcohol or drug abuse patient.[facility] HospitalIn the event this information is protected by the Federal Confidentiality of Alcohol and Drug Abuse Patient Records regulations: The Federal rules restrict any use of the information to criminally investigate or prosecute any alcohol or drug abuse patient.[facility] HospitalIn the event this information is protected by the Federal Confidentiality of Alcohol and Drug Abuse Patient Records regulations: The Federal rules restrict any use of the information to criminally investigate or prosecute any alcohol or drug abuse patient.[facility] HospitalIn the event this information is protected by the Federal Confidentiality of Alcohol and Drug Abuse Patient Records regulations: The Federal rules restrict any use of the information to criminally investigate or prosecute any alcohol or drug abuse patient.[facility] HospitalIn the event this information is protected by the Federal Confidentiality of Alcohol and Drug Abuse Patient Records regulations: The Federal rules restrict any use of the information to criminally investigate or prosecute any alcohol or drug abuse patient.[facility] HospitalIn the event this information is protected by the Federal Confidentiality of Alcohol and Drug Abuse Patient Records regulations: The Federal rules restrict any use of the information to criminally investigate or prosecute any alcohol or drug abuse patient.[facility] HospitalIn the event this information is protected by the Federal Confidentiality of Alcohol and Drug Abuse Patient Records regulations: The Federal rules restrict any use of the information to criminally investigate or prosecute any alcohol or drug abuse patient.[facility] HospitalIn the event this information is protected by the Federal Confidentiality of Alcohol and Drug Abuse Patient Records regulations: The Federal rules restrict any use of the information to criminally investigate or prosecute any alcohol or drug abuse patient.[facility] HospitalIn the event this information is protected by the Federal Confidentiality of Alcohol and Drug Abuse Patient Records regulations: The Federal rules restrict any use of the information to criminally investigate or prosecute any alcohol or drug abuse patient.[facility] HospitalIn the event this information is protected by the Federal Confidentiality of Alcohol and Drug Abuse Patient Records regulations: The Federal rules restrict any use of the information to criminally investigate or prosecute any alcohol or drug abuse patient.[facility] HospitalIn the event this information is protected by the Federal Confidentiality of Alcohol and Drug Abuse Patient Records regulations: The Federal rules restrict any use of the information to criminally investigate or prosecute any alcohol or drug abuse patient.[facility] HospitalIn the event this information is protected by the Federal Confidentiality of Alcohol and Drug Abuse Patient Records regulations: The Federal rules restrict any use of the information to criminally investigate or prosecute any alcohol or drug abuse patient.[facility] HospitalIn the event this information is protected by the Federal Confidentiality of Alcohol and Drug Abuse Patient Records regulations: The Federal rules restrict any use of the information to criminally investigate or prosecute any alcohol or drug abuse patient.[facility] HospitalIn the event this information is protected by the Federal Confidentiality of Alcohol and Drug Abuse Patient Records regulations: The Federal rules restrict any use of the information to criminally investigate or prosecute any alcohol or drug abuse patient.[facility] HospitalIn the event this information is protected by the Federal Confidentiality of Alcohol and Drug Abuse Patient Records regulations: The Federal rules restrict any use of the information to criminally investigate or prosecute any alcohol or drug abuse patient.[facility] HospitalIn the event this information is protected by the Federal Confidentiality of Alcohol and Drug Abuse Patient Records regulations: The Federal rules restrict any use of the information to criminally investigate or prosecute any alcohol or drug abuse patient.[facility] HospitalIn the event this information is protected by the Federal Confidentiality of Alcohol and Drug Abuse Patient Records regulations: The Federal rules restrict any use of the information to criminally investigate or prosecute any alcohol or drug abuse patient.[facility] HospitalIn the event this information is protected by the Federal Confidentiality of Alcohol and Drug Abuse Patient Records regulations: The Federal rules restrict any use of the information to criminally investigate or prosecute any alcohol or drug abuse patient.[facility] HospitalIn the event this information is protected by the Federal Confidentiality of Alcohol and Drug Abuse Patient Records regulations: The Federal rules restrict any use of the information to criminally investigate or prosecute any alcohol or drug abuse patient.[facility] HospitalIn the event this information is protected by the Federal Confidentiality of Alcohol and Drug Abuse Patient Records regulations: The Federal rules restrict any use of the information to criminally investigate or prosecute any alcohol or drug abuse patient.[facility] HospitalIn the event this information is protected by the Federal Confidentiality of Alcohol and Drug Abuse Patient Records regulations: The Federal rules restrict any use of the information to criminally investigate or prosecute any alcohol or drug abuse patient.[facility] HospitalIn the event this information is protected by the Federal Confidentiality of Alcohol and Drug Abuse Patient Records regulations: The Federal rules restrict any use of the information to criminally investigate or prosecute any alcohol or drug abuse patient.[facility] HospitalIn the event this information is protected by the Federal Confidentiality of Alcohol and Drug Abuse Patient Records regulations: The Federal rules restrict any use of the information to criminally investigate or prosecute any alcohol or drug abuse patient.[facility] HospitalIn the event this information is protected by the Federal Confidentiality of Alcohol and Drug Abuse Patient Records regulations: The Federal rules restrict any use of the information to criminally investigate or prosecute any alcohol or drug abuse patient.[facility] HospitalIn the event this information is protected by the Federal Confidentiality of Alcohol and Drug Abuse Patient Records regulations: The Federal rules restrict any use of the information to criminally investigate or prosecute any alcohol or drug abuse patient.[facility] HospitalIn the event this information is protected by the Federal Confidentiality of Alcohol and Drug Abuse Patient Records regulations: The Federal rules restrict any use of the information to criminally investigate or prosecute any alcohol or drug abuse patient.[facility] HospitalIn the event this information is protected by the Federal Confidentiality of Alcohol and Drug Abuse Patient Records regulations: The Federal rules restrict any use of the information to criminally investigate or prosecute any alcohol or drug abuse patient.[facility] HospitalIn the event this information is protected by the Federal Confidentiality of Alcohol and Drug Abuse Patient Records regulations: The Federal rules restrict any use of the information to criminally investigate or prosecute any alcohol or drug abuse patient.[facility] HospitalIn the event this information is protected by the Federal Confidentiality of Alcohol and Drug Abuse Patient Records regulations: The Federal rules restrict any use of the information to criminally investigate or prosecute any alcohol or drug abuse patient.[facility] HospitalIn the event this information is protected by the Federal Confidentiality of Alcohol and Drug Abuse Patient Records regulations: The Federal rules restrict any use of the information to criminally investigate or prosecute any alcohol or drug abuse patient.[facility] HospitalIn the event this information is protected by the Federal Confidentiality of Alcohol and Drug Abuse Patient Records regulations: The Federal rules restrict any use of the information to criminally investigate or prosecute any alcohol or drug abuse patient.[facility] HospitalIn the event this information is protected by the Federal Confidentiality of Alcohol and Drug Abuse Patient Records regulations: The Federal rules restrict any use of the information to criminally investigate or prosecute any alcohol or drug abuse patient.[facility] HospitalIn the event this information is protected by the Federal Confidentiality of Alcohol and Drug Abuse Patient Records regulations: The Federal rules restrict any use of the information to criminally investigate or prosecute any alcohol or drug abuse patient.[facility] HospitalIn the event this information is protected by the Federal Confidentiality of Alcohol and Drug Abuse Patient Records regulations: The Federal rules restrict any use of the information to criminally investigate or prosecute any alcohol or drug abuse patient.[facility] HospitalIn the event this information is protected by the Federal Confidentiality of Alcohol and Drug Abuse Patient Records regulations: The Federal rules restrict any use of the information to criminally investigate or prosecute any alcohol or drug abuse patient.[facility] HospitalIn the event this information is protected by the Federal Confidentiality of Alcohol and Drug Abuse Patient Records regulations: The Federal rules restrict any use of the information to criminally investigate or prosecute any alcohol or drug abuse patient.[facility] HospitalIn the event this information is protected by the Federal Confidentiality of Alcohol and Drug Abuse Patient Records regulations: The Federal rules restrict any use of the information to criminally investigate or prosecute any alcohol or drug abuse patient.[facility] HospitalIn the event this information is protected by the Federal Confidentiality of Alcohol and Drug Abuse Patient Records regulations: The Federal rules restrict any use of the information to criminally investigate or prosecute any alcohol or drug abuse patient.[facility] HospitalIn the event this information is protected by the Federal Confidentiality of Alcohol and Drug Abuse Patient Records regulations: The Federal rules restrict any use of the information to criminally investigate or prosecute any alcohol or drug abuse patient.[facility] HospitalIn the event this information is protected by the Federal Confidentiality of Alcohol and Drug Abuse Patient Records regulations: The Federal rules restrict any use of the information to criminally investigate or prosecute any alcohol or drug abuse patient.[facility] HospitalIn the event this information is protected by the Federal Confidentiality of Alcohol and Drug Abuse Patient Records regulations: The Federal rules restrict any use of the information to criminally investigate or prosecute any alcohol or drug abuse patient.[facility] HospitalIn the event this information is protected by the Federal Confidentiality of Alcohol and Drug Abuse Patient Records regulations: The Federal rules restrict any use of the information to criminally investigate or prosecute any alcohol or drug abuse patient.[facility] HospitalIn the event this information is protected by the Federal Confidentiality of Alcohol and Drug Abuse Patient Records regulations: The Federal rules restrict any use of the information to criminally investigate or prosecute any alcohol or drug abuse patient.[facility] Care Teams (unrecognized sec tion and content) Credit Department Manager Relationship Specialty Start Date End Date Herminia Case MD [address] [place] [id number] PCP - General Family Practice 12/12/18 Credit Department Manager Relationship Specialty Start Date End Date Herminia Case MD [address] [place] [address] PCP - General Family Practice 12/12/18 Credit Department Manager Relationship Specialty Start Date End Date Herminia Case MD [address] [place] [address] PCP - General Family Practice 12/12/18 Credit Department Manager Relationship Specialty Start Date End Date Herminia Case MD [address] [place] [address] PCP - General Family Practice 12/12/18 Credit Department Manager Relationship Specialty Start Date End Date Herminia Case MD [address] [place] [address] PCP - General Family Practice 12/12/18 Credit Department Manager Relationship Specialty Start Date End Date Herminia Case MD PCP - General 04/15/15 Credit Department Manager Relationship Specialty Start Date End Date Herminia Case MD PCP - General 04/15/15 Credit Department Manager Relationship Specialty Start Date End Date Herminia Case MD [address] [place] [address] PCP - General Family Practice 12/12/18 Credit Department Manager Relationship Specialty Start Date End Date Herminia Case MD [address] [place] [address] PCP - General Family Practice 12/12/18 Credit Department Manager Relationship Specialty Start Date End Date Herminia Case MD [address] [place] [address] PCP - General Family Practice 12/12/18 Credit Department Manager Relationship Specialty Start Date End Date Herminia Case MD [address] [place] [address] PCP - General Family Practice 12/12/18 Credit Department Manager Relationship Specialty Start Date End Date Herminia Case MD [address] [place] [address] PCP - General Family Medicine 12/12/18 Credit Department Manager Relationship Specialty Start Date End Date Herminia Case MD [address] [place] [address] PCP - General Family Medicine 12/12/18 Credit Department Manager Relationship Specialty Start Date End Date Herminia Case MD [address] [place] [address] PCP - General Family Medicine 12/12/18 Credit Department Manager Relationship Specialty Start Date End Date Herminia Case MD [address] [place] [address] PCP - General Family Medicine 12/12/18 Credit Department Manager Relationship Specialty Start Date End Date Herminia Case MD [address] [place] [address] PCP - General Family Medicine 12/12/18 Credit Department Manager Relationship Specialty Start Date End Date Herminia Case MD [address] [place] [address] PCP - General Family Medicine 12/12/18 Credit Department Manager Relationship Specialty Start Date End Date Herminia Case MD [address] [place] [address] PCP - General Family Medicine 12/12/18 Credit Department Manager Relationship Specialty Start Date End Date Herminia Case MD [address] [place] [address] PCP - General Family Medicine 12/12/18 Credit Department Manager Relationship Specialty Start Date End Date Herminia Case MD [address] [place] [address] PCP - General Family Medicine 12/12/18 Credit Department Manager Relationship Specialty Start Date End Date Herminia Case MD [address] [place] [address] PCP - General Family Medicine 12/12/18 Credit Department Manager Relationship Specialty Start Date End Date Herminia Case MD [address] [place] [address] PCP - General Family Medicine 12/12/18 Credit Department Manager Relationship Specialty Start Date End Date Herminia Case MD [address] [place] [address] PCP - General Family Medicine 12/12/18 Credit Department Manager Relationship Specialty Start Date End Date Herminia Case MD [address] [place] [address] PCP - General Family Medicine 12/12/18 Credit Department Manager Relationship Specialty Start Date End Date Herminia Case MD [address] [place] [address] PCP - General Family Medicine 12/12/18 Credit Department Manager Relationship Specialty Start Date End Date Herminia Case MD [address] [place] [address] PCP - General Family Medicine 12/12/18 Credit Department Manager Relationship Specialty Start Date End Date Herminia Case MD [address] [place] [address] PCP - General Family Medicine 12/12/18 Credit Department Manager Relationship Specialty Start Date End Date Herminia Case MD [address] [place] [address] PCP - General Family Medicine 12/12/18 Credit Department Manager Relationship Specialty Start Date End Date Herminia Case MD [address] [place] [address] PCP - General Family Medicine 12/12/18 Credit Department Manager Relationship Specialty Start Date End Date Herminia Case MD [address] [place], [place] [id number] PCP - General 04/15/15 Ziyad Menendez MD [address] [facility], [address] [place], [place] [id number] Consulting Physician Gynecologic Oncology 03/12/22 Sally Rocha LAMINATING PRESS OPERATOR - AN/SSN [address] [place] [address] [address] [place], [place] [id number] Nurse Practitioner Certified Nurse Practitioner 04/21/22 Kisha Pepe LAMINATING PRESS OPERATOR - AN/SSN [address] [place] [address] [address] [place], [place] [id number] Nurse Practitioner Nurse Practitioner 10/20/22 Credit Department Manager Relationship Specialty Start Date End Date Herminia Case MD [address] [place] [address] PCP - General Family Medicine 12/12/18 Credit Department Manager Relationship Specialty Start Date End Date Herminia Case MD [address] [place] [address] PCP - General Family Medicine 12/12/18 Credit Department Manager Relationship Specialty Start Date End Date Herminia Case MD [address] [place] [address] PCP - General 04/15/15 Ziyad Menendez MD [address] [facility] [place] [address] Consulting Physician Gynecologic Oncology 03/12/22 Sally Rocha APRN - AN/SSN 2 4 OPERATOR [address] [facility] [address] [place] [address] Nurse Practitioner Certified Nurse Practitioner 04/21/22 Kisha Peep APRN - AN/SSN 2 4 OPERATOR [address] [facility] [address] [place] [address] Nurse Practitioner Nurse Practitioner 10/20/22 Credit Department Manager Relationship Specialty Start Date End Date Herminia Case MD [address] [place] [address] PCP - General Family Medicine 12/12/18 Credit Department Manager Relationship Specialty Start Date End Date Herminia Case MD [address] [place] [address] PCP - General 04/15/15 Ziyad Menendez MD [address] [facility] [place] [address] Consulting Physician Gynecologic Oncology 03/12/22 Sally Rocha APRN - AN/SSN 2 4 OPERATOR [address] [facility] [address] [place] [address] Nurse Practitioner Certified Nurse Practitioner 04/21/22 Kisha Pepe APRN - AN/SSN 2 [address] [address] Nurse Practitioner Nurse Practitioner 10/20/22 Credit Department Manager Relationship Specialty Start Date End Date Herminia Case MD [address] [place] [address] PCP - General Family Medicine 12/12/18 Credit Department Manager Relationship Specialty Start Date End Date Herminia Case MD [address] [place] [address] PCP - General Family Medicine 12/12/18 Credit Department Manager Relationship Specialty Start Date End Date Herminia Case MD [address] [place] [address] PCP - General Family Medicine 12/12/18 Credit Department Manager Relationship Specialty Start Date End Date Herminia Case MD [address] [place] [address] PCP - General Family Medicine 12/12/18 Credit Department Manager Relationship Specialty Start Date End Date Herminia Case MD [address] [place] [address] PCP - General Family Medicine 12/12/18 Credit Department Manager Relationship Specialty Start Date End Date Herminia Case MD [address] [place] [address] PCP - General Family Medicine 12/12/18 Credit Department Manager Relationship Specialty Start Date End Date Herminia Case MD [address] [place] [address] PCP - General Family Medicine 12/12/18 Credit Department Manager Relationship Specialty Start Date End Date Herminia Case MD [address] [place] [address] PCP - General Family Medicine 12/12/18 Credit Department Manager Relationship Specialty Start Date End Date Herminia Case MD [address] [place] [address] PCP - General Family Medicine 12/12/18 Credit Department Manager Relationship Specialty Start Date End Date Herminia Case MD [address] [place] [address] PCP - General Family Medicine 12/12/18 Credit Department Manager Relationship Specialty Start Date End Date Herminia Case MD [address] [place] [address] PCP - General Family Medicine 12/12/18 Credit Department Manager Relationship Specialty Start Date End Date Herminia Case MD [address] [place] [address] PCP - General 04/15/15 Ziyad Menendez MD [address] [facility] [address] [place] [address] Consulting Physician Gynecologic Oncology 03/12/22 Sally Rocha LAMINATING PRESS OPERATOR - AN/SSN 2 4 OPERATOR 161 [facility] [address] [place], [place] [id number] Nurse Practitioner Certified Nurse Practitioner 04/21/22 Kisha Pepe LAMINATING PRESS OPERATOR - AN/SSN 2 4 OPERATOR 161 [facility] [address] [place], [place] [id number] Nurse Practitioner Nurse Practitioner 10/20/22 Credit Department Manager Relationship Specialty Start Date End Date Herminia Case MD [address] [place] [address] PCP - General Family Medicine 12/12/18 Credit Department Manager Relationship Specialty Start Date End Date Herminia Case MD [address] [place] [address] PCP - General Family Medicine 12/12/18 Credit Department Manager Relationship Specialty Start Date End Date Herminia Case MD [address] [place], [place] [id number] PCP - General 04/15/15 Ziyad Menendez MD [address] [facility] [address] [place] [address] Consulting Physician Gynecologic Oncology 03/12/22 Sally Rocha LAMINATING PRESS OPERATOR - AN/SSN 2 4 OPERATOR 161 [facility] [address] [place], [place] [id number] Nurse Practitioner Certified Nurse Practitioner 04/21/22 Kisha Pepe LAMINATING PRESS OPERATOR - AN/SSN 2 4 OPERATOR 161 [facility] 298 [place] [address] Nurse Practitioner Nurse Practitioner 10/20/22 Credit Department Manager Relationship Specialty Start Date End Date Herminia Case MD [address] [place] [address] PCP - General Family Medicine 12/12/18 Credit Department Manager Relationship Specialty Start Date End Date Herminia Case MD [address] [place] [address] PCP - General Family Medicine 12/12/18 Credit Department Manager Relationship Specialty Start Date End Date Herminia Case MD [address] [place] [address] PCP - General Family Medicine 12/12/18 Credit Department Manager Relationship Specialty Start Date End Date Herminia Case MD [address] [place] [address] PCP - General Family Medicine 12/12/18 Credit Department Manager Relationship Specialty Start Date End Date Herminia Case MD [address] [place] [address] PCP - General Family Medicine 12/12/18 Credit Department Manager Relationship Specialty Start Date End Date Herminia Case MD [address] [place] [address] PCP - General Family Medicine 12/12/18 Credit Department Manager Relationship Specialty Start Date End Date Herminia Case MD [address] [place] [address] PCP - General Family Medicine 12/12/18 Credit Department Manager Relationship Specialty Start Date End Date Herminia Case MD [address] [place] [address] PCP - General Family Medicine 12/12/18 Credit Department Manager Relationship Specialty Start Date End Date Herminia Case MD [address] [place] [address] PCP - General Family Medicine 12/12/18 Credit Department Manager Relationship Specialty Start Date End Date Herminia Case MD [address] [place] [address] PCP - General Family Medicine 12/12/18 Credit Department Manager Relationship Specialty Start Date End Date Herminia Csae MD [address] [place] [address] PCP - General Family Medicine 12/12/18 Credit Department Manager Relationship Specialty Start Date End Date Herminia Case MD [address] [place] [address] PCP - General 04/15/15 Ziyad Menendez MD 161 [facility] [address] [place] [address] Consulting Physician Gynecologic Oncology 03/12/22 Sally Rocha APRN - AN/SSN 2 4 OPERATOR 161 [facility] [address] [place] [address] Nurse Practitioner Certified Nurse Practitioner 04/21/22 Kisha Pepe APRN - AN/SSN 2 4 OPERATOR 161 [facility] [address] [place] [address] Nurse Practitioner Nurse Practitioner 10/20/22 Credit Department Manager Relationship Specialty Start Date End Date Herminia Case MD [address] [place] [address] PCP - General Family Medicine 12/12/18 Credit Department Manager Relationship Specialty Start Date End Date Herminia Case MD [address] [place] [address] PCP - General Family Medicine 12/12/18 Credit Department Manager Relationship Specialty Start Date End Date Herminia Case MD [address] [place] [address] PCP - General 04/15/15 Ziyad Menendez MD 161 [facility] [address] [place] [address] Consulting Physician Gynecologic Oncology 03/12/22 Sally Rocha APRN - AN/SSN 2 4 OPERATOR 161 [facility] [address] [place] [address] Nurse Practitioner Certified Nurse Practitioner 04/21/22 Kisha Pepe APRN - NADEME 161 [facility] [address] [place] [address] Nurse Practitioner Nurse Practitioner 10/20/22 Credit Department Manager Relationship Specialty Start Date End Date Herminia Case MD [address] [place] [address] PCP - General Family Medicine 12/12/18 Credit Department Manager Relationship Specialty Start Date End Date Herminia Case MD [address] [place] [address] PCP - General 04/15/15 Ziyad Menendez MD 161 [facility] [address] [place] [address] Consulting Physician Gynecologic Oncology 03/12/22 Sally Rocha APRN - NADEEM 161 [facility] [address] [place] [address] Nurse Practitioner Certified Nurse Practitioner 04/21/22 Kisha Pepe APRN - NADEEM 161 [facility] [address] [place] [address] Nurse Practitioner Nurse Practitioner 10/20/22 Credit Department Manager Relationship Specialty Start Date End Date Herminia Case MD [address] [place] [address] PCP - General Family Medicine 12/12/18 Credit Department Manager Relationship Specialty Start Date End Date Herminia Case MD [address] [place] [address] PCP - General 04/15/15 Ziyad Menendez MD 161 [facility] [place] [address] Consulting Physician Gynecologic Oncology 03/12/22 Sally Rocha, LAMINATING PRESS OPERATOR - AN/SSN 2 4 OPERATOR 161 [facility] [address] [place] [address] Nurse Practitioner Certified Nurse Practitioner 04/21/22 Credit Department Manager Relationship Specialty Start Date End Date Herminia Case MD [address] [place] [address] PCP - General 04/15/15 Ziyad Menendez MD [address] [place] [address], [address] [place] [address] Consulting Physician Gynecologic Oncology 03/12/22 Sally Rocha, LAMINATING PRESS OPERATOR - AN/SSN 2 4 OPERATOR 161 [facility] [address] [place] [address] Nurse Practitioner Certified Nurse Practitioner 04/21/22 Credit Department Manager Relationship Specialty Start Date End Date Herminia Case MD [address] [place] [address] PCP - General Family Medicine 12/12/18 Melva Juárez PA-C [address] [place] [address] [facility] 02/26/24 Credit Department Manager Relationship Specialty Start Date End Date Herminia Case MD [address] [place] [address] PCP - General Family Medicine 12/12/18 Melva Juárez PA-C [address] [place] [address] [facility] 02/26/24 Credit Department Manager Relationship Specialty Start Date End Date Herminia Case MD [address] [place] [address] PCP - General Family Medicine 12/12/18 Melva Juárez PA-C [address] [place] [address] [facility] Stars [facility] 02/26/24 Credit Department Manager Relationship Specialty Start Date End Date Herminia Case MD [address] [place] [address] PCP - General Family Medicine 12/12/18 Melva Juárez PA-C [address] [place] [address] [facility] 02/26/24 Credit Department Manager Relationship Specialty Start Date End Date Herminia Case MD [address] [place] [address] PCP - General Family Medicine 12/12/18 Melva Juárez PA-C [address] [place] [address] [facility] 02/26/24 Credit Department Manager Relationship Specialty Start Date End Date Herminia Case MD [address] [place] [address] PCP - General Family Medicine 12/12/18 Melva Juárez PA-C [address] [place] [address] [facility] 02/26/24 Credit Department Manager Relationship Specialty Start Date End Date Herminia Case MD [address] [place] [address] PCP - General 04/15/15 Ziyad Menendez MD 161 [facility] [address] [place] [address] Consulting Physician Gynecologic Oncology 03/12/22 Sally Rocha APRN - NADEEM 161 [facility] [address] [place] [address] Nurse Practitioner Certified Nurse Practitioner 04/21/22 Kisha Pepe APRN - AN/SSN 2 4 OPERATOR 161 [facility] [address] [place] [address] Nurse Practitioner Nurse Practitioner 10/20/22 Credit Department Manager Relationship Specialty Start Date End Date Herminia Case MD [address] [place] [address] PCP - General Family Medicine 12/12/18 Melva Juárez PA-C [address] [place] [address] [facility] 02/26/24 Credit Department Manager Relationship Specialty Start Date End Date Herminia Case MD [address] [place] [address] PCP - General Family Medicine 12/12/18 Melva Juárez PA-C [address] [place] [address] [facility] 02/26/24 Credit Department Manager Relationship Specialty Start Date End Date Herminia Case MD [address] [place] [address] PCP - General Family Medicine 12/12/18 Melva Juárez PA-C [address] [place] [address] [facility] 02/26/24 Herminia Case MD [address] [place] [address] Home Care Provider Family Medicine 06/07/24 Herminia Case MD [address] [place] [address] Referring Family Medicine 06/07/24 Credit Department Manager Relationship Specialty Start Date End Date Herminia Case MD [address] [place] [address] PCP - General Family Medicine 12/12/18 Melva Juárez PA-C [address] [place] [address] [facility] 02/26/24 Herminia Case MD [address] [place] [address] Home Care Provider Family Medicine 06/07/24 Herminia Case MD [address] [place] [address] Referring Family Medicine 06/07/24 Credit Department Manager Relationship Specialty Start Date End Date Herminia Case MD [address] [place] [address] PCP - General Family Medicine 12/12/18 Melva Juárez PA-C [address] [place] [address] [facility] 02/26/24 Herminia Case MD [address] [place] [address] Home Care Provider Family Medicine 06/07/24 Herminia Case MD [address] [place] [address] Referring Family Medicine 06/07/24 Credit Department Manager Relationship Specialty Start Date End Date Herminia Case MD [address] [place] [address] PCP - General Family Medicine 12/12/18 Melva Juárez PA-C [address] [place] [address] [facility] 02/26/24 Herminia Case MD [address] [place] [address] Home Care Provider Family Medicine 06/07/24 Herminia Case MD [address] [place] [address] Referring Family Medicine 06/07/24 Credit Department Manager Relationship Specialty Start Date End Date Herminia Case MD [address] [place] [address] PCP - General Family Medicine 12/12/18 Melva Juárez PA-C [address] [place] [address] [facility] 02/26/24 Herminia Case MD [address] [place] [address] Home Care Provider Family Medicine 06/07/24 Herminia Case MD [address] [place] [address] Referring Family Medicine 06/07/24 Credit Department Manager Relationship Specialty Start Date End Date Herminia Case MD [address] [place] [address] PCP - General Family Medicine 12/12/18 Melva Juárez PA-C [address] [place] [address] [facility] 02/26/24 Herminia Case MD [address] [place] [address] Home Care Provider Family Medicine 06/07/24 Herminia Case MD [address] [place] [address] Referring Family Medicine 06/07/24 Credit Department Manager Relationship Specialty Start Date End Date Herminia Case MD [address] [place] [address] PCP - General Family Medicine 12/12/18 Melva Juárez PA-C [address] [place] [address] [facility] 02/26/24 Herminia Case MD [address] [place] [address] Home Care Provider Family Medicine 06/07/24 Herminia Case MD [address] [place] [address] Referring Family Medicine 06/07/24 Credit Department Manager Relationship Specialty Start Date End Date Herminia Case MD [address] [place] [address] PCP - General 04/15/15 Ziyad Menendez MD [address] [address] Consulting Physician Gynecologic Oncology 03/12/22 Sally Rocha, LAMINATING PRESS OPERATOR - AN/SSN 2 4 OPERATOR [address] [facility] [address] [place] [address] Nurse Practitioner Certified Nurse Practitioner 04/21/22 Kisha Pepe APRN - AN/SSN 2 4 OPERATOR 161 [facility] [address] [place] [address] Nurse Practitioner Nurse Practitioner 10/20/22 Credit Department Manager Relationship Specialty Start Date End Date Herminia Case MD [address] [place] [address] PCP - General 04/15/15 Ziyad Menendez MD [address] [address] Consulting Physician Gynecologic Oncology 03/12/22 Sally Rocha APRN - AN/SSN 2 4 OPERATOR 161 [facility] [address] [place] [address] Nurse Practitioner Certified Nurse Practitioner 04/21/22 Kisha Pepe APRN - AN/SSN 2 4 OPERATOR [address] [address] Nurse Practitioner Nurse Practitioner 10/20/22 Credit Department Manager Relationship Specialty Start Date End Date Herminia Case MD [address] [place] [address] PCP - General Family Medicine 12/12/18 Melva Juárez PAKimC [address] [place], [place] [id number] [facility] 02/26/24 Herminia Case MD [address] [place] [address] Home Care Provider Family Medicine 06/07/24 Herminia Case MD [address] [place] [address] Referring Family Medicine 06/07/24 Credit Department Manager Relationship Specialty Start Date End Date Herminia Case MD [address] [place] [address] PCP - General 04/15/15 Ziyad Menendez MD 161 [facility] [address] [place] [address] Consulting Physician Gynecologic Oncology 03/12/22 Sally Rocha LAMINATING PRESS OPERATOR - AN/SSN 2 4 OPERATOR 161 [facility] [address] [place] [address] Nurse Practitioner Certified Nurse Practitioner 04/21/22 Kisha Pepe, LAMINATING PRESS OPERATOR - AN/SSN 2 4 OPERATOR 161 [facility] [address] [place] [address] Nurse Practitioner Nurse Practitioner 10/20/22 Credit Department Manager Relationship Specialty Start Date End Date Herminia Case MD [address] [place] [address] PCP - General Family Medicine 12/12/18 Melva Juárez PA-C [address] [place] [address] [facility] 02/26/24 Herminia Case MD [address] [place] [address] Home Care Provider Family Medicine 06/07/24 Herminia Case MD [address] [place] [address] Referring Family Medicine 06/07/24 Credit Department Manager Relationship Specialty Start Date End Date Herminia Case MD [address] [place] [address] PCP - General 04/15/15 Ziyad Menendez MD 161 [facility] [address] [place] [address] Consulting Physician Gynecologic Oncology 03/12/22 Sally Rocha APRN - AN/SSN 2 4 OPERATOR 161 [facility] [address] [place] [address] Nurse Practitioner Certified Nurse Practitioner 04/21/22 Kisha Pepe APRN - AN/SSN 2 4 OPERATOR 161 [facility] [address] [place] [address] Nurse Practitioner Nurse Practitioner 10/20/22 Credit Department Manager Relationship Specialty Start Date End Date Herminia Case MD [address] [place] [address] PCP - General 04/15/15 Ziyad Menendez MD 161 [facility] [address] [place] [address] Consulting Physician Gynecologic Oncology 03/12/22 Sally Rocha APRN - AN/SSN 2 4 OPERATOR 161 [facility] [address] [place] [address] Nurse Practitioner Certified Nurse Practitioner 04/21/22 Kisha Pepe APRN - AN/SSN 2 4 OPERATOR 161 [facility] [address] [place] [address] Nurse Practitioner Nurse Practitioner 10/20/22 FOR RECORDS PERTAINING TO PATIENTS WHO ARE [...] BE BASED ON THE PRIMARY CLINICAL RECORDS. [facility]. provides no warranty or guarantee of the accuracy or completeness of information in this document.
[2024-09-14 08:01] LABS: Hematocrit 38.3 % (37-47); Hemoglobin 12.1 g/dL (12.0-15.0); Mean Corp Hgb Conc 31.6 g/dL (32-36); Mean Corpuscular Volume 101.3 fL (81-99); Mean Platelet Vol. 9.9 fl (6.2-12.0); Platelet Count 274 K/mm3 (150-450); RBC Distribution Width CV 13.4 % (11.6-14.6); RBC Distribution Width SD 50.9 fl (35.1-43.9); Red Blood Count 3.78 M/mm3 (4.2-5.4); White Blood Count 11.4 K/mm3 (4.4-11.0)
[2024-09-14 09:26] LABS: Anion Gap 12 (5-15); BUN 13 mg/dL (4-19); BUN/Creat Ratio 23.4 RATIO (10-20); Calcium,Total 9.2 mg/dL (7.6-11.0); Carbon Dioxide 29.4 mmol/L (21.0-32.0); Chloride 98 mmol/L (98-108); Creatinine, Serum 0.56 mg/dL (0.70-1.20); EST Glomerular Filtration Rate 100 (>60); Glucose 103 mg/dL (70-99); Potassium 3.9 mmol/L (3.3-5.1); Sodium Level 139 mmol/L (133-145)
== END ==
LOC: OLS.SANC 05:00
PROVIDERS: Visit Provider Internal Medicine
DX: J44.9 Chronic obstructive pulmonary disease, unspecified (principal)
CPT/HCPCS: 36415; 80048; 85027

== ENCOUNTER → 2024-09-17 | Outpatient (REF) | payer MEDICARE, MEDICAID, SELFPAY ==
[2024-09-17 09:02] LABS: Hematocrit 35.4 % (37-47); Hemoglobin 10.7 g/dL (12.0-15.0); Mean Corp Hgb Conc 30.2 g/dL (32-36); Mean Corpuscular Hgb 30.9 pg (27.0-32.0); Mean Corpuscular Volume 102.3 fL (81-99); Mean Platelet Vol. 9.9 fl (6.2-12.0); Platelet Count 246 K/mm3 (150-450); RBC Distribution Width CV 13.7 % (11.6-14.6); RBC Distribution Width SD 52.1 fl (35.1-43.9); Red Blood Count 3.46 M/mm3 (4.2-5.4)
[2024-09-17 09:37] LABS: Anion Gap 7 (5-15); BUN 15 mg/dL (4-19); BUN/Creat Ratio 26.7 RATIO (10-20); Calcium,Total 8.9 mg/dL (7.6-11.0); Carbon Dioxide 32.9 mmol/L (21.0-32.0); Chloride 103 mmol/L (98-108); Creatinine, Serum 0.56 mg/dL (0.70-1.20); EST Glomerular Filtration Rate 100 (>60); Glucose 80 mg/dL (70-99); Potassium 4.1 mmol/L (3.3-5.1); Sodium Level 143 mmol/L (133-145)
== END ==
LOC: OLS.SANC 05:00
PROVIDERS: Visit Provider Internal Medicine
DX: J44.9 Chronic obstructive pulmonary disease, unspecified (principal)
CPT/HCPCS: 36415; 80048; 85027

== ENCOUNTER → 2024-09-17 | Outpatient (REF) | payer MEDICARE, MEDICAID, SELFPAY ==
[2024-09-18 11:04] LABS: Bacteria 0 SEEN /hpf (None Seen); Mucous, Urine 0 SEEN /hpf (<or=2+); Red Blood Cells-Urine 0 SEEN /hpf (0-5); Squamous Epithelial Cells - UA 0 SEEN /hpf (5-10); White Blood Cells 0 SEEN /hpf (0-5)
[2024-09-18 11:51] LABS: Color, Urine Yellow (Yellow); Glucose, Dipstick Normal (Normal); Ketone-Dipstick Negative (Negative); Leukocyte Esterase-Dipstick Negative /ul (Negative); Nitrite-Dipstick Negative (Negative); Occult Blood-Urine Negative /ul (Negative); Protein-Dipstick 15 mg/dl (Negative); Urine Bilirubin Dipstick Negative (Negative); Urine Clarity Sl. Cloudy (Clear); Urine Urobilinogen Normal (Normal)
[2024-09-18 12:35] LABS: Calcium Oxalate Crystals Ur 1+ /hpf (<or=2+)
== END ==
LOC: OLS.SANC 09:00
PROVIDERS: Referring Provider Internal Medicine; Visit Provider Internal Medicine
DX: N39.0 Urinary tract infection, site not specified (principal)
CPT/HCPCS: 81001; 87086; 87088

== ENCOUNTER → 2024-10-01 05:00 | Outpatient (REF) | payer MEDICARE, MEDICAID, SELFPAY ==
--- OUTSIDE RECORDS SUMMARY | 2024-10-01 03:48 | XMS RPT_ITS | CCD ---
Author Organization [facility] Care Team Providers Care Door Closer Name Role Phone Herminia Case Primary Care Provider Evie, Herminia Primary Care Unavailable Disttimmy, Herminia Referring Unavailable Ziyad Menendez Attending Unavailable Evie, Herminia Primary Care Unavailable Disttimmy, Herminia Referring Unavailable Ziyad Menendez Attending Unavailable Evie, Herminia Primary Care Unavailable Distel, Herminia Referring Unavailable Ziyad Menendez Attending Unavailable Guanakoel, Herminia Primary Care Unavailable Distel, Herminia Referring Unavailable Ziyad Menendez Attending Unavailable Distel, Herminia Primary Care Unavailable Distel, Herminia Referring Unavailable Ziyad Menendez Attending Unavailable Herminia Case MD Primary Care Provider [phone] Herminia Case MD Primary Care Provider Herminia Case MD Primary Care Provider Ziyad Menendez MD Unavailable [phone] Aj 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 - TONG SETTER, Sally Unavailable Afshin 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 - TONG SETTER, Kisha Unavailable Ziyad Menendez MD Unavailable Aj 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 - TONG SETTER, Sally Unavailable Ziyad Menendez MD Unavailable Herminia Case MD Primary Care Provider Herminia Case MD Primary Care Provider Ziyad Menendez MD Unavailable Ja 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 - TONG SETTER, Sally Unavailable Melva Juárez PA-C Unavailable Herminia [...] Care Unavailable JOAQUINA MARTINEZ Attending Unava ilable DISTEL, HERMINIA Primary Care Unavailable ELYSSA TESFAYE Attending Unavailable DISTEL, HERMINIA Primary Care Unavailable ZIYAD MENENDEZ Attending Unavailable ZIYAD MENENDEZ Referring Unavailable DISTEL, HERMINIA Primary Care Unavailable DISTEL, HERMINIA Primary Care Unavailable BETSEY GRESHAM Consulting Unavailable NAGINENI, DEJUAN Admitting Unavailable RENA BEVERLY Attending Unavailable DISTEL, HERMINIA Primary Care Unavailable NICKOLAS RIVERA Admitting Unavailable BETSEY GRESHAM Consulting Unavailable ILODIROLAND Attending Unavailable EVANGELINA DESAI Consulting Unavailable DISTEL, HERMINIA Primary Care Unavailable FLAKO ALTAMIRANO Attending Unavailable Ellis STALLINGS, Jameson Attending Unavailable Ellis STALLINGS, Jameson Attending Unavailable Ellis STALLINGS, Jameson Attending Unavailable Jameson Molina Referring Unavailable Jameson Molina Attending Unavailable Ellis STALLINGS, Jameson Attending Unavailable Allergies Allergy Classification Reported Allergen(s) Allergy Type Date of Onset Reaction(s) Facility (20 sources) Seasonal allergy; Translations: [SEASONAL ALLERGIES] Allergy to substance 08-16-2017 Intolerance [facility] Work Phone: (20 sources) Pollen Allergy to substance 08-16-2017 Unknown [facility] Medications Current Medications Medication Drug Class(es) [...] intertrochanteric fracture of left femur, initial encounter (HCC) Take 1 tablet by mouth every [...] zation, EVERY 4 HOURS PRN, Wheezing, Starting 11/21/19 at 2145 Start: 12-30-2015 albuterol (PRO VENTIL) 2.5 mg /3 mL (0.083 %) nebulizer solution albuterol sulfat e HFA 108 (90 BASE) MCG/ACT inhaler Indications: as needed noted on 02/20 Inhale 2 puffs into the lungs every 6 hours as needed for Wheezing Indications: as needed noted on 02/20 0 Active albuterol sulfat e HFA 108 (90 BASE) MCG/ACT inhaler Indications: as needed noted on 02/20 Inhale 2 puffs into the lungs every 6 hours as needed for Wheezing Indications: as needed noted on 02/20 0 Active Comment on above: Inhale 2 [...] 5 mg, Oral, DAILY PRN, Constipation, Starting 11/21/19 at 2148 First line therapy for constipation. [...] on above: Take 1 tablet by shanna three times a day. calcium carbonate 625 [...] mL IVPB (add-vantage) (1 source) Start: 08-03-19 20 cefTRIAXone sodium 1 g in sodium chloride 0.9 % 100 mL IVPB (add-vantage) cholecalciferol 0.025 mg oral tablet (6 sources) Vitamin D Start: 09-22-19 End: 10-23-19 take 1 tablet by mouth once daily [...] above: Take 1 tablet by shanna th twice daily as needed. Take 1 tablet by shanna th three times daily as needed. TAKE 1 TABLET BY SHANNA TH TWICE A DAY NEEDED Take 1 tablet by shanna th two times a day as needed. Take 10 mg by mouth. docusate sodium 50 mg / sennosides, chcf 8.6 mg oral tablet (20 sources) Start: [...] Start: 11-21-2019 take 1 tablet by shanna twice daily as needed for constipation 1 [...] Comment on above: Take 1 capsule by mo ut twice daily for 7 days. Take 1 capsule by mo uth twice daily for 10 days. 60 actuat [...] Active Start: 06-22-2022 End: 06-22-2022 Nebulizers Indications: [employer] kyrie respiratory failure with hypoxia (HCC) , Panlobular emphysema (HCC) Use as directed. 1 Each 0 06/22/2022 06/22/2022 Discontinued Comment on above: Use as directed. OLANZapine 5 mg oral tablet (4 sources) Atypical Antipsychotic Start: 0 take 1 tablet by mouth once daily OLANZapine (ZYPREXA) 5 MG tablet Indications: Chemotherapy induced nausea and vomiting Take 1 tablet by mouth nightly 30 tablet 0 02/21/2020 Active ondansetron 8 mg oral tablet (14 sources) Serotonin-3 Receptor Antagonist Start: 0 take 1 tablet by mouth every eight hours as needed for nausea ondansetron (ZOFRAN) 8 MG tablet Indications: Malignant neoplasm of exocervix (HCC) Take 1 tablet by mouth every 8 hours as needed for Nausea or Vomiting 35 tablet 4 01/03/2020 Active Start: 11-21-2019 4 mg, Intraven ous, EVERY 6 HOURS PRN, Nausea, Vomiting, Starting 11/21/19 at 2147 Start: 10-27-2019 End: 10-27-2019 ondansetron [...] Inhalation, EVERY 6 HOURS PRN, Wheezing, Starting [facility] 08/02/19 at 2106 Start: 08-02-2019 albuterol [...] sodium chloride 0.9 % 250 mL IVPB (ADD-[place]) (2 sources) Start: 08-07-2023 End: 08-07-2023 azithromycin (Zithromax) 500 mg in sodium chloride 0.9 % 250 mL IVPB (ADD-[place]) ceFAZolin 1000 mg injection (1 source) Cephalosporin [...] Comment on above: Take 1 capsule by [facility] once daily for 14 days. Take 1 capsule by [facility] once daily. 0.3 ml enoxaparin sodium 100 [...] 40 mg, Subcutaneous, DAILY, First dose on Olga 11/22/19 at 0900 Start: 11-09-2019 End: 11-09-2019 enoxaparin (LOVENOX) injecti on 100 mg EPINEPHrine / Lidocaine (3 sources) Antiarrhythmic, alpha-Adrenergic Agonist, beta-Adrenergic Agonist, Catecholamine, Amide Local Anesthetic Start: 05-21-2022 End: 05-21-2022 lidocaine-EPINEPHrine (Xylocaine W/EPI) 1 %-1:134751 injection 10 mL Start: 12-19-2019 End: 12-19-2019 lidocaine-EPINEPHrine 2 perc ent-1:524363 injection 2 ml fentaNYL 0.05 mg/ml injection [...] as instructed once daily. 60 Each 5 12/09/2021 Active Start: 05-06-2021 End: 11-02-2021 fluticasone-vilanterol (BREO ELLIPTA) 200-25 mcg/dose inhaler Indications: Pulmonary emphysema, unspecified emphysema type (HCC) Inhale 1 Inhalation as instructed once daily. 60 Each 5 05/06/2021 11/02/2021 Active take 1 puff(s) by [...] Oral, 2 TIMES DAILY, First dose on Olga 08/02/19 at 2130 Comment on above: Take [...] 12 hours or as directed by . 10 patch 10/16/2023 07/30/2024 Discontinued (Therapy completed) [...] reach optimal image enhancement polyethylene glycol 3350 09683 mg powder for oral solution (14 sources) [...] 200 mg, Oral, DAILY, First dose on Tue11/22/19 at 0900 Start: 08-03-2019 take 200 mg by mouth once sean y 200 mg, Oral, DAILY, First dose on Tue08/03/19 at 0900 Comment on above: Take 2 tablets by mo ut once daily. TAKE 2 TABLETS BY MO [facility] EVERY DAY sodium chloride 0.111 meq/ml [...] once daily. INHALE 2 PUFFS BY MO [facility] ONCE DAILY DIRECTED Problems Active Problems Problem [...] unspecified cervical region] Onset: 04-12-2018 04-12-2018 Chronic Thyroid disorders (1 source) Hypothyroidism, unspecified; Translations: [Hypothyroidism, unspecified] Onset: 09-20-2024 Chronic Unclassified (20 sources) Compression fracture of [...] Test Name Value Interpretation Reference Range Facility Urine Cultureon 09-20-2024 [facility] UNKNOWN METHOD OF COLLECTION Mixed Gram Pos Gram Neg Org [place] Count 11,000-25,000 MIXC Mixed contaminants. Submit a new specimen if indicated. Normal [facility] Comment on above: Performed By: #### L 400.0001, M100.2200 #### [facility] [address] [place], [address] Urinalysis, Completeon 09-18 CA OX CRYSTAL 1+ /hpf Normal [facility] Comment on above: Order Comment: UNKNO WN METHOD OF COLLECTION CLEAN CATCH Performed By: #### L 400.0001, M100.2200 #### [facility] [address] [place], [address] BACTERIA 0 SEEN Normal None Seen [facility] Comment on above: Order Comment: UNKNO WN METHOD OF COLLECTION CLEAN CATCH Performed By: #### L 400.0001, M100.2200 #### [facility] [address] [place], [address] EPI,SQUAMOUS 0 SEEN Normal 5-10 [facility] Comment on above: Order Comment: UNKNO WN METHOD OF COLLECTION CLEAN CATCH Performed By: #### L 400.0001, M100.2200 #### [facility] [address] [place], [address] Mucus Ql (Urine sed) 0 SEEN Normal [facility] Comment on above: Order Comment: UNKNO WN METHOD OF COLLECTION CLEAN CATCH Performed By: #### L 400.0001, M100.2200 #### [facility] [address] [place], [address] RBC 0 SEEN Normal 0-5 [facility] Comment on above: Order Comment: UNKNO WN METHOD OF COLLECTION CLEAN CATCH Performed By: #### L 400.0001, M100.2200 #### [facility] [address] [place], [address] WBC 0 SEEN Normal 0-5 [facility] Comment on above: Order Comment: UNKNO WN METHOD OF COLLECTION CLEAN CATCH Performed By: #### L 400.0001, M100.2200 #### [facility] [address] [place], [address] Basic Metabolic Profile (BMP )on 09-17-2024 BUN/CRE 26.7 RATIO High 10-20 [facility] Comment on above: Order Comment: 311-2 Performed By: #### L 500.2500, L100.0500 #### [facility] [address] [place], [address] Calcium [Mass/Vol] 8.9 mg/dL Normal 7.6-11.0 [facility] Comment on above: Order Comment: 311-2 Performed By: #### L 500.2500, L100.0500 #### [facility] [address] [place], [address] Chloride [Moles/Vol] 103 mmol/L Normal 98-108 [facility] Comment on above: Order Comment: 311-2 Performed By: #### L 500.2500, L100.0500 #### [facility] [address] [place], [address] CO2 [Moles/Vol] 32.9 mmol/L High 21.0-32.0 [facility] Comment on above: Order Comment: 311-2 Performed By: #### L 500.2500, L100.0500 #### [facility] [address] [place], [address] Creatinine [Mass/Vol] 0.56 mg/dL Low 0.70-1.20 [facility] Comment on above: Order Comment: 311-2 Performed By: #### L 500.2500, L100.0500 #### [facility] [address] [place], [address] GAP 7 Normal 5-15 [facility] Comment on above: Order Comment: 311-2 Performed By: #### L 500.2500, L100.0500 #### [facility] [address] [place], [address] GFR/1.73 sq M.predicted among non-blacks MDRD (S/P/Bld) [Vol rate/Area] 100 mL/min/{1.73_m2} Normal >60 [facility] Comment on above: Order Comment: 311-2 Result Comment: mL/m in/1.73m2 CKD-EPI Creatinine Equation (2020) Performed By: #### L 500.2500, L100.0500 #### [facility] [address] [place], [address] Glucose [Mass/Vol] 80 mg/dL Normal 70-99 [facility] Comment on above: Order Comment: 311-2 Performed By: #### L 500.2500, L100.0500 #### [facility] [address] [place], [address] Potassium [Moles/Vol] 4.1 mmol/L Normal 3.3-5.1 [facility] Comment on above: Order Comment: 311-2 Performed By: #### L 500.2500, L100.0500 #### [facility] [address] [place], [address] Sodium [Moles/Vol] 143 mmol/L Normal 133-145 [facility] Comment on above: Order Comment: 311-2 Performed By: #### L 500.2500, L100.0500 #### [facility] [address] [place], [address] Urea nitrogen [Mass/Vol] 15 mg/dL Normal 4-19 [facility] Comment on above: Order Comment: 311-2 Performed By: #### L 500.2500, L100.0500 #### [facility] [address] [place], [address] CBC-Complete Blood Cnt No Di ffon 09-17-2024 Erythrocyte distribution width (RBC) [Ratio] 13.7 % Normal 11.6-14.6 [facility] Comment on above: Order Comment: 311-2 Performed By: #### L 500.2500, L100.0500 #### [facility] [address] [place], [address] Hematocrit (Bld) [Volume fraction] 35.4 % Low 37-47 [facility] Comment on above: Order Comment: 311-2 Performed By: #### L 500.2500, L100.0500 #### [facility] [address] [place], [address] Hemoglobin (Bld) [Mass/Vol] 10.7 g/dL Low 12.0-15.0 [facility] Comment on above: Order Comment: 311-2 Performed By: #### L 500.2500, L100.0500 #### [facility] [address] [place], [address] MCH (RBC) [Entitic mass] 30.9 pg Normal 27.0-32.0 [facility] Comment on above: Order Comment: 311-2 Performed By: #### L 500.2500, L100.0500 #### [facility] [address] [place], [address] MCHC (RBC) [Mass/Vol] 30.2 g/dL Low 32-36 [facility] Comment on above: Order Comment: 311-2 Performed By: #### L 500.2500, L100.0500 #### [facility] [address] [place], [address] MCV (RBC) [Entitic vol] 102.3 fL High 81-99 [facility] Comment on above: Order Comment: 311-2 Performed By: #### L 500.2500, L100.0500 #### [facility] [address] [place], [address] Platelet mean volume (Bld) [Entitic vol] 9.9 fL Normal 6.2-12.0 [facility] Comment on above: Order Comment: 311-2 Performed By: #### L 500.2500, L100.0500 #### [facility] [address] [place], [address] Platelets (Bld) [#/Vol] 246 10*3/uL Normal 150-450 [facility] Comment on above: Order Comment: 311-2 Performed By: #### L 500.2500, L100.0500 #### [facility] [address] [place], [address] RBC (Bld) [#/Vol] 3.46 10*6/uL Low 4.2-5.4 [facility] Comment on above: Order Comment: 311-2 Performed By: #### L 500.2500, L100.0500 #### [facility] [address] [place], [address] RDW SD 52.1 fl High 35.1-43.9 [facility] Comment on above: Order Comment: 311-2 Performed By: #### L 500.2500, L100.0500 #### [facility] [address] [place], [address] WBC (Bld) [#/Vol] 8.0 10*3/uL Normal 4.4-11.0 [facility] Comment on above: Order Comment: 311-2 Performed By: #### L 500.2500, L100.0500 #### [facility] [address] [place], [address] Basic Metabolic Profile (BMP )on 09-14-2024 BUN/CRE 23.4 RATIO High 10-20 [facility] Comment on above: Order Comment: 311-2 Performed By: #### L 500.2500, L100.0500 #### [facility] [address] [place], [address] Calcium [Mass/Vol] 9.2 mg/dL Normal 7.6-11.0 [facility] Comment on above: Order Comment: 311-2 Performed By: #### L 500.2500, L100.0500 #### [facility] [address] [place], [address] Chloride [Moles/Vol] 98 mmol/L Normal 98-108 [facility] Comment on above: Order Comment: 311-2 Performed By: #### L 500.2500, L100.0500 #### [facility] [address] [place], [address] CO2 [Moles/Vol] 29.4 mmol/L Normal 21.0-32.0 [facility] Comment on above: Order Comment: 311-2 Performed By: #### L 500.2500, L100.0500 #### [facility] [address] [place], [address] Creatinine [Mass/Vol] 0.56 mg/dL Low 0.70-1.20 [facility] Comment on above: Order Comment: 311-2 Performed By: #### L 500.2500, L100.0500 #### [facility] [address] [place], [address] GAP 12 Normal 5-15 [facility] Comment on above: Order Comment: 311-2 Performed By: #### L 500.2500, L100.0500 #### [facility] [address] [place], [address] GFR/1.73 sq M.predicted among non-blacks MDRD (S/P/Bld) [Vol rate/Area] 100 mL/min/{1.73_m2} Normal >60 [facility] Comment on above: Order Comment: 311-2 Result Comment: mL/m in/1.73m2 CKD-EPI Creatinine Equation (2020) Performed By: #### L 500.2500, L100.0500 #### [facility] [address] [place], [address] Glucose [Mass/Vol] 103 mg/dL High 70-99 [facility] Comment on above: Order Comment: 311-2 Performed By: #### L 500.2500, L100.0500 #### [facility] [address] [place], [address] Potassium [Moles/Vol] 3.9 mmol/L Normal 3.3-5.1 [facility] Comment on above: Order Comment: 311-2 Performed By: #### L 500.2500, L100.0500 #### [facility] [address] [place], [address] Sodium [Moles/Vol] 139 mmol/L Normal 133-145 [facility] Comment on above: Order Comment: 311-2 Performed By: #### L 500.2500, L100.0500 #### [facility] [address] [place], [address] Urea nitrogen [Mass/Vol] 13 mg/dL Normal 4-19 [facility] Comment on above: Order Comment: 311-2 Performed By: #### L 500.2500, L100.0500 #### [facility] [address] [place], [address] CBC-Complete Blood Cnt No Di ffon 09-14-2024 Erythrocyte distribution width (RBC) [Ratio] 13.4 % Normal 11.6-14.6 [facility] Comment on above: Order Comment: 311-2 Performed By: #### L 500.2500, L100.0500 #### [facility] [address] [place], [address] Hematocrit (Bld) [Volume fraction] 38.3 % Normal 37-47 [facility] Comment on above: Order Comment: 311-2 Performed By: #### L 500.2500, L100.0500 #### [facility] [address] [place], [address] Hemoglobin (Bld) [Mass/Vol] 12.1 g/dL Normal 12.0-15.0 [facility] Comment on above: Order Comment: 311-2 Performed By: #### L 500.2500, L100.0500 #### [facility] [address] [place], [address] MCH (RBC) [Entitic mass] 32.0 pg Normal 27.0-32.0 [facility] Comment on above: Order Comment: 311-2 Performed By: #### L 500.2500, L100.0500 #### [facility] [address] [place], [address] MCHC (RBC) [Mass/Vol] 31.6 g/dL Low 32-36 [facility] Comment on above: Order Comment: 311-2 Performed By: #### L 500.2500, L100.0500 #### [facility] [address] [place], [address] MCV (RBC) [Entitic vol] 101.3 fL High 81-99 [facility] Comment on above: Order Comment: 311-2 Performed By: #### L 500.2500, L100.0500 #### [facility] [address] [place], [address] Platelet mean volume (Bld) [Entitic vol] 9.9 fL Normal 6.2-12.0 [facility] Comment on above: Order Comment: 311-2 Performed By: #### L 500.2500, L100.0500 #### [facility] [address] [place], [address] Platelets (Bld) [#/Vol] 274 10*3/uL Normal 150-450 [facility] Comment on above: Order Comment: 311-2 Performed By: #### L 500.2500, L100.0500 #### [facility] [address] [place], [address] RBC (Bld) [#/Vol] 3.78 10*6/uL Low 4.2-5.4 [facility] Comment on above: Order Comment: 311-2 Performed By: #### L 500.2500, L100.0500 #### [facility] [address] [place], [address] RDW SD 50.9 fl High 35.1-43.9 [facility] Comment on above: Order Comment: 311-2 Performed By: #### L 500.2500, L100.0500 #### [facility] [address] [place], [address] WBC (Bld) [#/Vol] 11.4 10*3/uL High 4.4-11.0 [facility] Comment on above: Order Comment: 311-2 Performed By: #### L 500.2500, L100.0500 #### [facility] [address] [place], [address] 36on 09-07-2024 36 Spoke to Nilesh from [facility] and scheduled patient for a follow up on 09/24@10am. Patient has not been seen for quite a while and also is requesting port removal to be scheduled. [facility] 36 Nilesh from [facility] states pt's port was flushed but there was no blood draw back. Patient requested for the port to be removed due to not being used for roughly 1 year. Please contact Nilesh with further questions at [phone] Normal [facility] Progress Noteon 09-06-2024 Progress Note Normal [facility] Thyroid Stim Hormone (TSH)on 08-22-2024 TSH 0.786 uIU/mL Normal 0.300-4.200 [facility] Comment on above: Order Comment: 102.2 Performed By: #### L 501.9520 #### [facility] [address] [place], [address] 37on 08-20-2024 37 Normal [facility] Progress Noteon 08-20-2024 Progress Note Normal [facility] Basic Metabolic Profile (BMP )on 08-15-2024 BUN/CRE 28.5 RATIO High 10-20 [facility] Comment on above: Order Comment: 102-2 Performed By: #### L 500.2500, L100.0500 #### [facility] [address] [place], [address] Calcium [Mass/Vol] 8.8 mg/dL Normal 7.6-11.0 [facility] Comment on above: Order Comment: 102-2 Performed By: #### L 500.2500, L100.0500 #### [facility] [address] [place], [address] Chloride [Moles/Vol] 103 mmol/L Normal 98-108 [facility] Comment on above: Order Comment: 102-2 Performed By: #### L 500.2500, L100.0500 #### [facility] [address] [place], [address] CO2 [Moles/Vol] 31.7 mmol/L Normal 21.0-32.0 [facility] Comment on above: Order Comment: 102-2 Performed By: #### L 500.2500, L100.0500 #### [facility] [address] [place], [address] Creatinine [Mass/Vol] 0.47 mg/dL Low 0.70-1.20 [facility] Comment on above: Order Comment: 102-2 Performed By: #### L 500.2500, L100.0500 #### [facility] [address] [place], [address] GAP 7 Normal 5-15 [facility] Comment on above: Order Comment: 102-2 Performed By: #### L 500.2500, L100.0500 #### [facility] [address] [place], [address] GFR/1.73 sq M.predicted among non-blacks MDRD (S/P/Bld) [Vol rate/Area] 104 mL/min/{1.73_m2} Normal >60 [facility] Comment on above: Order Comment: 102-2 Result Comment: mL/m in/1.73m2 CKD-EPI Creatinine Equation (2020) Performed By: #### L 500.2500, L100.0500 #### [facility] [address] [place], [address] Glucose [Mass/Vol] 85 mg/dL Normal 70-99 [facility] Comment on above: Order Comment: 102-2 Performed By: #### L 500.2500, L100.0500 #### [facility] [address] [place], [address] Potassium [Moles/Vol] 3.9 mmol/L Normal 3.3-5.1 [facility] Comment on above: Order Comment: 102-2 Performed By: #### L 500.2500, L100.0500 #### [facility] [address] [place], [address] Sodium [Moles/Vol] 142 mmol/L Normal 133-145 [facility] Comment on above: Order Comment: 102-2 Performed By: #### L 500.2500, L100.0500 #### [facility] [address] [place], [address] Urea nitrogen [Mass/Vol] 13 mg/dL Normal 4-19 [facility] Comment on above: Order Comment: 102-2 Performed By: #### L 500.2500, L100.0500 #### [facility] [address] [place], [address] CBC-Complete Blood Cnt No Di ffon 08-15-2024 Erythrocyte distribution width (RBC) [Ratio] 14.0 % Normal 11.6-14.6 [facility] Comment on above: Order Comment: 102-2 Performed By: #### L 500.2500, L100.0500 #### [facility] [address] [place], [address] Hematocrit (Bld) [Volume fraction] 34.7 % Low 37-47 [facility] Comment on above: Order Comment: 102-2 Performed By: #### L 500.2500, L100.0500 #### [facility] [address] [place], [address] Hemoglobin (Bld) [Mass/Vol] 10.4 g/dL Low 12.0-15.0 [facility] Comment on above: Order Comment: 102-2 Performed By: #### L 500.2500, L100.0500 #### [facility] [address] [place], [address] MCH (RBC) [Entitic mass] 31.2 pg Normal 27.0-32.0 [facility] Comment on above: Order Comment: 102-2 Performed By: #### L 500.2500, L100.0500 #### [facility] [address] [place], [address] MCHC (RBC) [Mass/Vol] 30.0 g/dL Low 32-36 [facility] Comment on above: Order Comment: 102-2 Performed By: #### L 500.2500, L100.0500 #### [facility] [address] [place], [address] MCV (RBC) [Entitic vol] 104.2 fL High 81-99 [facility] Comment on above: Order Comment: 102-2 Performed By: #### L 500.2500, L100.0500 #### [facility] [address] [place], [address] Platelet mean volume (Bld) [Entitic vol] 9.8 fL Normal 6.2-12.0 [facility] Comment on above: Order Comment: 102-2 Performed By: #### L 500.2500, L100.0500 #### [facility] [address] [place], [address] Platelets (Bld) [#/Vol] 236 10*3/uL Normal 150-450 [facility] Comment on above: Order Comment: 102-2 Performed By: #### L 500.2500, L100.0500 #### [facility] [address] [place], [address] RBC (Bld) [#/Vol] 3.33 10*6/uL Low 4.2-5.4 [facility] Comment on above: Order Comment: 102-2 Performed By: #### L 500.2500, L100.0500 #### [facility] [address] [place], [address] RDW SD 54.0 fl High 35.1-43.9 [facility] Comment on above: Order Comment: 102-2 Performed By: #### L 500.2500, L100.0500 #### [facility] [address] [place], [address] WBC (Bld) [#/Vol] 9.4 10*3/uL Normal 4.4-11.0 [facility] Comment on above: Order Comment: 102-2 Performed By: #### L 500.2500, L100.0500 #### [facility] [address] [place], [address] [id number] 08-10-2024 [id number] Patient Choice Patient Name: GONZALO DELUCA Date of : 1955 Normal [facility] 30on 08-08-2024 30 Normal [facility] 30 Normal [facility] [id number] 08-08-2024 [id number] Normal [facility] [id number] MAR, Discharge med list transmitted and 7000 in HENs to [facility] [place] via [employer] per TCC request. [facility] BASIC METABOLIC PANELon 05-2 Anion gap [Moles/Vol] 8 mmol/L Normal 3-13 [facility] Comment on above: Performed By: #### L [id number] ####[employer] Architect: HANS PAULSON ([id number])[facility] (SBHLAB)[address] Calcium [Mass/Vol] 8.6 mg/dL Low 8.8-10.0 [facility] Comment on above: Performed By: #### L [id number] ####[employer] Architect: HANS PAULSON ([id number])[facility] (SBHLAB)[address] [place] [address] [place] Chloride [Moles/Vol] 101 mmol/L Normal 98-107 [facility] Comment on above: Performed By: #### L [id number] ####[employer] Architect: HANS PAULSON ([id number])[facility] (SBHLAB)[address] [place] [address] [place] CO2 [Moles/Vol] 32 mmol/L High 23-31 [facility] Comment on above: Performed By: #### L [id number] ####[employer] Architect: HANS PAULSON ([id number])[facility] (SBHLAB)[address] [place] [address] [place] Creatinine [Mass/Vol] 0.63 mg/dL Normal 0.57-1.11 [facility] Comment on above: Performed By: #### L [id number] ####[employer] Automation Architect: HANS PAULSON ([id number])[facility] ([facility])[address] GLOMERULAR FILTRATION RATE ML/MIN/1.73 SQ M.PREDICTED >90.0 Normal >60.0 [facility] Comment on above: Result Comment: Calc ulation based on the Chronic Kidney Disease Epidemiology Collaboration (CKD-EPI) equation refit without adjustment for race Performed By: #### L [id number] ####[employer] Automation Architect: HANS PAULSON ([id number])[facility] ([facility])[address] [place] [address] Glucose [Mass/Vol] 99 mg/dL Normal 82-115 [facility] Comment on above: Performed By: #### L [id number] ####[employer] Automation Architect: HANS PAULSON ([id number])[facility] ([facility])[address] [place] [address] Potassium [Moles/Vol] 3.9 mmol/L Normal 3.5-5.1 [facility] Comment on above: Result Comment: [facility] potassium values may be up to 0.5 mmol/L lower than serum values. Performed By: #### L [id number] ####[employer] Automation Architect: HANS PAULSON ([id number])[facility] Sodium [Moles/Vol] 141 mmol/L Normal 136-145 [facility] Comment on above: Performed By: #### L [id number] ####[employer] Autom[employer] Architect: HANS PAULSON ([id number])[facility] Urea nitrogen [Mass/Vol] 22 mg/dL Normal 9-23 [facility] Comment on above: Performed By: #### L [id number] ####[employer] Automation Architect: HANS PAULSON ([id number])[facility] (SB[facility])[address] [place] [id number] [facility] Basic metabolic 1998 panelon 08-08-2024 Anion gap [Moles/Vol] 8 mmol/L 3 - 13 mmol/L [facility] Calcium [Mass/Vol] 8.6 mg/dL Low 8.8 - 10. 0 mg/dL [facility] Chloride [Moles/Vol] 101 mmol/L 98 - 10 7 mmol/L [facility] CO2 [Moles/Vol] 32 mmol/L High 23 - 31 mmol/L [facility] Creatinine [Mass/Vol] 0.63 mg/dL 0.57 - 1.11 mg/dL [facility] GFR/1.73 sq M.predicted (S/P/Bld) [Vol rate/Area] - PINF [facility] Comment on above: Calculation based on the Chronic Kidney Disease Epidemiology Collaboration (CKD-EPI) equation refit without adjustment for race Glucose [Mass/Vol] 99 mg/dL 82 - 115 mg/dL [facility] Interpretation and review of laboratory results Abnormal [facility] Potassium [Moles/Vol] 3.9 mmol/L 3.5 - 5.1 mmol/L [facility] Comment on above: Plasma potassium martín ues may be up to 0.5 mmol/L lower than serum values. Sodium [Moles/Vol] 141 mmol/L 136 - 145 mmol/L [facility] Urea nitrogen [Mass/Vol] 22 mg/dL 9 - 23 mg/d L [facility] CBC W Auto Differential pane l (Bld)on 08-08-2024 Basophils (Bld) [#/Vol] 0 10*3/uL 0.0 - 0.2 10*3/uL [facility] Basophils/100 WBC (Bld) 0.2 % 0.0 - 2.0 % [facility] Eosinophils (Bld) [#/Vol] 0.4 10*3/uL 0.0 - 0.5 10*3/uL [facility] Eosinophils/100 WBC (Bld) 2.9 % 0.0 - 6.0 % [facility] Erythrocyte distribution width (RBC) [Ratio] 14.6 % 11.5 - 15.0 % [facility] Hematocrit (Bld) [Volume fraction] 33.7 % Low 35.0 - 47.0 % [facility] Hemoglobin (Bld) [Mass/Vol] 10.4 g/dL Low 11.7 - 16.0 g/dL [facility] Immature granulocytes (Bld) [#/Vol] 0 10*3/uL NINF - 0.1 10*3/uL [facility] Immature granulocytes/100 WBC (Bld) 0.3 % 0.0 - 2.0 % [facility] Interpretation and review of laboratory results Abnormal [facility] Lymphocytes (Bld) [#/Vol] 1.1 10*3/uL 1.0 - 4.3 10*3/uL [facility] Lymphocytes/100 WBC (Bld) 9 % Low 15.0 - 45.0 % [facility] MCH (RBC) [Entitic mass] 31.3 pg 26. 0 - 34.0 pg [facility] MCHC (RBC) [Mass/Vol] 30.9 % 30.5 - 36.0 % [facility] MCV (RBC) [Entitic vol] 101.5 fL High 77.0 - 99.0 fL [facility] Monocytes (Bld) [#/Vol] 1.2 10*3/uL High 0.0 - 0.9 10*3/uL [facility] Monocytes/100 WBC (Bld) 9.6 % 5.0 - 13.0 % [facility] Neutrophils (Bld) [#/Vol] 9.8 10*3/uL High 1.8 - 7.5 10*3/uL [facility] Neutrophils/100 WBC (Bld) 78 % 38.0 - 82.0 % [facility] Nucleated RBC/100 WBC (Bld) [Ratio] 0 % [facility] Platelet mean volume (Bld) [Entitic vol] 9.8 fL 9.0 - 12.7 fL [facility] Platelets (Bld) [#/Vol] 192 10*3/uL 140 - 440 10*3/uL [facility] RBC (Bld) [#/Vol] 3.32 10*6/uL Low 3.80 - 5.2 0 10*6/uL [facility] WBC (Bld) [#/Vol] 12.6 10*3/uL High 3.6 - 10.7 10*3/uL [facility] CBC WITH AUTO DIFFERENTIALon 08-08-2024 Basophils (Bld) [#/Vol] 0.0 10*3/uL Normal 0.0-0.2 [facility] Comment on above: Performed By: #### L [id number] ####[employer] Architect: HANS ALCANTARESCOBAR ([id number])[facility] (SB[facility])[address] Basophils/100 WBC (Bld) 0.2 % Normal 0.0-2.0 [facility] Comment on above: Performed By: #### L [id number] ####[employer] Autom[employer] Architect: HANS ALCANTARESCOBAR ([id number])[facility] (SBHLAB)[address] Eosinophils (Bld) [#/Vol] 0.4 10*3/uL Normal 0.0-0.5 [facility] Comment on above: Performed By: #### L [id number] ####[employer] Architect: HANS PAULSON ([id number])[facility] ([facility])[address] Eosinophils/100 WBC (Bld) 2.9 % Normal 0.0-6.0 [facility] Comment on above: Performed By: #### L [id number] ####[employer] Autom[employer] Architect: HANS ALCANTARESCOBAR ([id number])[facility] (SB[facility]AB)[address] [place] [address] Erythrocyte distribution width (RBC) [Ratio] 14.6 % Normal 11.5-15.0 [facility] Comment on above: Performed By: #### L [id number] ####[employer] Architect: HANS PAULSON ([id number])[facility] ([facility])[address] Hematocrit (Bld) [Volume fraction] 33.7 % Low 35.0-47.0 [facility] Comment on above: Performed By: #### L [id number] ####[employer] Architect: HANS PAULSON ([id number])[facility] ([facility])[address] Hemoglobin (Bld) [Mass/Vol] 10.4 g/dL Low 11.7-16.0 [facility] Comment on above: Performed By: #### L [id number] ####[employer] Automation Architect: HANS PAULSON ([id number])[facility] (SBHLAB)[address] IMMATURE GRANS % 0.3 % Normal 0.0-2.0 [facility] Comment on above: Performed By: #### L [id number] ####[employer] Autom[employer] Architect: HANS PAULSON ([id number])[facility] (SBAB)[address] IMMATURE GRANS ABSOLUTE 0.0 10*3/uL Normal <0.1 [facility] Comment on above: Performed By: #### L [id number] ####[employer] Automation Architect: HANS PAULSON ([id number])[facility] Lymphocytes (Bld) [#/Vol] 1.1 10*3/uL Normal 1.0-4.3 [facility] Comment on above: Performed By: #### L [id number] ####[employer] Architect: HANS PAULSON ([id number])[facility] (SBAB)[address] Lymphocytes/100 WBC (Bld) 9.0 % Low 15.0-45.[address] [facility] Comment on above: Performed By: #### L [id number] ####[employer] Automation Architect: HANS PAULSON ([id number])[facility] ([facility])[address] MCH (RBC) [Entitic mass] 31.3 pg Normal 26.0-34.[address] [facility] Comment on above: Performed By: #### L [id number] ####[employer] Automation Architect: HANS PAULSON ([id number])[facility] (SBAB)[address] MCHC 30.9 % Normal 30.5-36.0 [facility] Comment on above: Performed By: #### L [id number] ####[employer] Automation Architect: HANS ALCANTARESCOBAR ([id number])[facility] (SB[facility]AB)[address] MCV (RBC) [Entitic vol] 101.5 fL High 77.0-99.0 [facility] Comment on above: Performed By: #### L [id number] ####[employer]ation Architect: HANS ALCANTARESCOBAR ([id number])[facility] ([facility])[address] Monocytes (Bld) [#/Vol] 1.2 10*3/uL High 0.0-0.9 [facility] Comment on above: Performed By: #### L [id number] ####[employer] Architect: HANS PAULSON ([id number])[facility] ([facility])[address] Monocytes/100 WBC (Bld) 9.6 % Normal 5.0-13.0 [facility] Comment on above: Performed By: #### L [id number] ####[employer] Architect: HANS PAULSON ([id number])[facility] ([facility])[address] NEUTROPHILS ABSOLUTE 9.8 10*3/uL High 1.8-7.5 [facility] Comment on above: Performed By: #### L [id number] ####[employer] Automation Architect: HANS ALCANTARESCOBAR ([id number])[facility] ([facility])[address] Neutrophils/100 WBC (Bld) 78.0 % Normal 38.0-82.0 [facility] Comment on above: Performed By: #### L [id number] ####[employer] Automation Architect: HANS PAULSON ([id number])[facility] ([facility])[address] [place] [address] [place] NRBC 0.0 /100 WBCs Normal 0.0-2.0 [facility] Comment on above: Performed By: #### L [id number] ####[employer] Automation Architect: HANS PAULSON ([id number])[facility] ([facility])[address] Platelet mean volume (Bld) [Entitic vol] 9.8 fL Normal 9.0-12.7 [facility] Comment on above: Performed By: #### L [id number] ####[employer] Automation Architect: HANS PAULSON ([id number])[facility] ([facility])[address] Platelets (Bld) [#/Vol] 192 10*3/uL Normal 140-440 [facility] Comment on above: Performed By: #### L [id number] ####[employer] Architect: HANS PAULSON ([id number])[facility] ([facility])[address] RBC (Bld) [#/Vol] 3.32 10*6/uL Low 3.80-5.20 [facility] Comment on above: Performed By: #### L [id number] ####[employer] Automation Architect: HANS PAULSON ([id number])[facility] (SB[facility]AB)[address] [place] [address] WBC (Bld) [#/Vol] 12.6 10*3/uL High 3.6-10.7 [facility] Comment on above: Performed By: #### L [id number] ####[employer] Autom[employer] Architect: HANS PAULSON ([id number])[facility] ([facility])[address] COMPLETE URINALYSIS WITH REF FAMILIA TO CULTUREon 08-08-2024 BACTERIA (#/HPF) IN URINE Negative Normal Negative [facility] Comment on above: Performed By: #### L [id number] ####[employer] Architect: HANS PAULSON ([id number])[facility] ([facility])[address] BILIRUBIN, TOTAL PRESENCE IN URINE Negative Normal Negative [facility] Comment on above: Performed By: #### L [id number] ####[employer] Automation Architect: HANS PAULSON ([id number])[facility] ([facility])[address] Clarity (U) Clear Normal Clear [facility] Comment on above: Performed By: #### L [id number] ####[employer] Architect: HANS PAULSON ([id number])[facility] ([facility])[address] Color (U) Yellow Normal Lt. Yellow [facility] Comment on above: Performed By: #### L [id number] ####[employer] Automation Architect: HANS PAULSON ([id number])[facility] ([facility])[address] [place] [address] GLUCOSE (MG/DL) IN URINE Normal Normal Normal (<70 ) [facility] Comment on above: Performed By: #### L [id number] ####[employer] Architect: HANS PAULSON ([id number])[facility] ([facility])[address] [place] [address] HEMOGLOBIN PRESENCE IN URINE Negative Normal Negative [facility] Comment on above: Performed By: #### L [id number] ####[employer] Architect: HANS PAULSON ([id number])[facility] ([facility])[address] [place] [address] Ketones Ql (U) Negative Normal Negative [facility] Comment on above: Performed By: #### L [id number] ####[employer]ation Architect: HANS PAULSON ([id number])[facility] ([facility])[address] [place] [address] LEUKOCYTE ESTERASE PRESENCE IN URINE BY TEST STRIP Negative Normal Negative [facility] Comment on above: Performed By: #### L [id number] ####[employer]ation Architect: HANS PAULSON ([id number])[facility] ([facility])[address] [place] [address] [place] MUCUS (#/LPF) IN URINE SEDIMENT Few Normal Negative [facility] Comment on above: Performed By: #### L [id number] ####[employer] Automation Architect: HANS PAULSON ([id number])[facility] ([facility])[address] NITRITE PRESENCE IN URINE Negative Normal Negative [facility] Comment on above: Performed By: #### L [id number] ####[employer]ation Architect: HANS PAULSON ([id number])[facility] ([facility])[address] pH (U) 6.0 [pH] Normal 5.0-8.0 [facility] Comment on above: Performed By: #### L [id number] ####[employer]ation Architect: HANS PAULSON ([id number])[facility] ([facility])[address] Protein (U) [Mass/Vol] 20 mg/dL Abnormal Negative [facility] Comment on above: Performed By: #### L [id number] ####[employer] Automation Architect: HANS PAULSON ([id number])[facility] [place] [address] RBC (#/HPF) IN URINE SEDIMENT 0-2 Normal 0-2 [facility] Comment on above: Performed By: #### L [id number] ####[employer] Automation Architect: HANS PAULSON ([id number])[facility] ([facility])[address] Specific gravity (U) [Rel density] 1.026 Normal 1.005-1.030 [facility] Comment on above: Result Comment: KYM Gilmore COMMENTS:A specimen with <=10 WBC is not consistent with inflammation. This specimen will not reflex to a urine culture. Performed By: #### L [id number] ####[employer]ation Architect: HANS PAULSON ([id number])[facility] ([facility])[address] SQUAMOUS EPITHELIAL CELLS (#/HPF) IN URINE SEDIMENT 0-2 Normal 3-5 [facility] Comment on above: Performed By: #### L [id number] ####[employer] Automation Architect: HANSRONALD PAULSON ([id number])[facility] MAK[facility]LAEN[facility] (SBHLAB)[address] UROBILINOGEN (MG/DL) IN URINE Normal Normal Normal (0-1) [facility] Comment on above: Performed By: #### L [id number] ####[employer] Automation Architect: HANS WALDROPIVELISSE ([id number])[facility] ([facility]HLAB)[address] WBC (LEUKOCYTE) (#/HPF) IN URINE SEDIMENT 3-5 Normal 0-5 [facility] Comment on above: Performed By: #### L [id number] ####[employer] Automation Architect: HANS PAULSON ([id number])[facility] ([facility])[address] [place] [address] Nursing Noteon 08-08-2024 Nursing Note Called report to Leena [facility] Pickup scheduled for 3:30pm. Normal [facility] Nursing Note Normal [facility] Progress Noteon 08-08-2024 Progress Note Normal [facility] Progress Note Patient chart review ed and being rounded on. Note to follow. 6:29 AM 08/08/24 Rena Beverly MD Division of Hospitalist Medicine Acute care [facility] Normal [facility] Urinalysis complete panel (U )Ordered By: Ziyad Ruiz on 08-08-2024 Bacteria LM.HPF (Urine sed) [#/Area] Negative Negative /HPF [facility] Bilirubin Ql (U) Negative Negative mg/dL [facility] Clarity (U) Clear Clear [facility] Color (U) Yellow Lt. Yellow [facility] Epithelial cells.squamous LM.HPF (Urine sed) [#/Area] 0-2 [facility] Glucose Ql (U) Normal Normal (<70) mg/dL [facility] Hemoglobin Ql (U) Negative Negative mg/dL [facility] Interpretation and review of laboratory results Abnormal [facility] Ketones (U) [Mass/Vol] Negative Negat kenton mg/dL [facility] Leukocyte esterase Test strip Ql (U) Negative Negative Sandra/uL [facility] Mucus LM.HPF (Urine sed) [#/Area] Few Negative /LPF [facility] Nitrite Ql (U) Negative Negative [facility] th pH (U) 6.0 [pH] 5.0 - 8.0 pH [facility] Protein (U) [Mass/Vol] 20 mg/dL Abnormal Negative [facility] RBC LM.HPF (Urine sed) [#/Area] 0-2 [facility] Specific gravity (U) [Rel density] 1.026 1.005 - 1.030 [facility] Urobilinogen (U) [Mass/Vol] Normal Normal (0-1) mg/dL [facility] WBC LM.HPF (Urine sed) [#/Area] 3-5 [facility] A specimen with <=10 WBC is not consistent with inflammation. This specimen will not reflex to a urine culture. [facility] XR Chest 2 Viewson No significant change compared to the prior exam. Report Dictated on Electronically Signed By: Pawan Cordova MD Electronically Signed Date/Time: 08/08/2024 10:02 AM EDT [facility] [employer] [facility] Patient Name[facility] 1955 [id number] Exam Date/Time: 08/08/2024 09:53 Procedure: XR CHEST [...] the spine similar to prior CT imaging. [facility] Pawan Cordova MD - 08/08/2024 Patient Name: GONZALO DELUCA : 1955 [facility]#: [id number] Exam Date/Time: 08/08/2024 09:53 Procedure: XR CHEST [...] Electronically Signed Date/Time: 08/08/2024 10:02 AM EDT [facility] Radiology Study observation (narrative) [facility] XR Chest 2 ViewsOrdered By: Pawan Cordova on 08-08-2024 [facility] Work Phone: [phone] 08-07-2024 [id number] Normal [facility] BASIC METABOLIC PANELon 07-20 Anion gap [Moles/Vol] 7 mmol/L Normal 3-13 [facility] Comment on above: Performed By: #### L [id number] ####[employer] Architect: HANS PAULSON ([id number])[facility] ([facility])[address] [place] [address] Calcium [Mass/Vol] 9.3 mg/dL Normal 8.8-10.0 [facility] Comment on above: Performed By: #### L [id number] ####[employer] Architect: HANS PAULSON ([id number])[facility] ([facility])[address] Chloride [Moles/Vol] 101 mmol/L Normal 98-107 [facility] Comment on above: Performed By: #### L [id number] ####[employer] Automation Architect: HANS ALCANTARESCOBAR ([id number])[facility] (SBHLAB)[address] CO2 [Moles/Vol] 33 mmol/L High 23-31 [facility] Comment on above: Performed By: #### L [id number] ####[employer]ation Architect: HANS WALDROPIVELISSE ([id number])[facility] (SBHLAB)[address] Creatinine [Mass/Vol] 0.59 mg/dL Normal 0.57-1.11 [facility] Comment on above: Performed By: #### L [id number] ####Qa Automation Architect: HANS PAULSON ([id number])[facility] (SBHLAB)[address] GLOMERULAR FILTRATION RATE ML/MIN/1.73 SQ M.PREDICTED >90.0 Normal >60.0 [facility] Comment on above: Result Comment: Calc ulation based on the Chronic Kidney Disease Epidemiology Collaboration (CKD-EPI) equation refit without adjustment for race Performed By: #### L [id number] ####Qa Automation Architect: HANS PAULSON ([id number])[facility] (SBHLAB)155 [place] [address] [place] Glucose [Mass/Vol] 124 mg/dL High 82-115 [facility] Comment on above: Performed By: #### L [id number] ####Qa Automation Architect: HANS PAULSON ([id number])[facility] (HLAB)[address] Potassium [Moles/Vol] 3.7 mmol/L Normal 3.5-5.1 [facility] Comment on above: Result Comment: [facility] potassium values may be up to 0.5 mmol/L lower than serum values. Performed By: #### L [id number] ####Qa Automation Architect: HANS PAULSON ([id number])[facility] (SBHLAB)[address] Sodium [Moles/Vol] 141 mmol/L Normal 136-145 [facility] Comment on above: Performed By: #### L [id number] ####Qa Automation Architect: HANS PAULSON ([id number])[facility] (SBHLAB)[address] Urea nitrogen [Mass/Vol] 28 mg/dL High 9-[address] [facility] Comment on above: Performed By: #### L [id number] ####Qa Automation Architect: HANS PAULSON ([id number])[facility] (SBHLAB)[address] Basic metabolic 1998 panelon 08-07-2024 Anion gap [Moles/Vol] 7 mmol/L 3 - 13 mmol/L [facility] Calcium [Mass/Vol] 9.3 mg/dL 8.8 - 10. 0 mg/dL [facility] Chloride [Moles/Vol] 101 mmol/L 98 - 10 7 mmol/L [facility] CO2 [Moles/Vol] 33 mmol/L High 23 - 31 mmol/L [facility] Creatinine [Mass/Vol] 0.59 mg/dL 0.57 - 1.11 mg/dL [facility] GFR/1.73 sq M.predicted (S/P/Bld) [Vol rate/Area] - PINF [facility] Comment on above: Calculation based on the Chronic Kidney Disease Epidemiology Collaboration (CKD-EPI) equation refit without adjustment for race Glucose [Mass/Vol] 124 mg/dL High 82 - 115 mg/dL [facility] Interpretation and review of laboratory results Abnormal [facility] Potassium [Moles/Vol] 3.7 mmol/L 3.5 - 5.1 mmol/L [facility] Comment on above: Plasma potassium martín ues may be up to 0.5 mmol/L lower than serum values. Sodium [Moles/Vol] 141 mmol/L 136 - 145 mmol/L [facility] Urea nitrogen [Mass/Vol] 28 mg/dL High 9 - 23 mg/d L [facility] CBC W Auto Differential pane l (Bld)Ordered By: Crystal Dupont on 08-07-2024 Basophils (Bld) [#/Vol] 0 10*3/uL 0.0 - 0.2 10*3/uL [facility] Basophils/100 WBC (Bld) 0.2 % 0.0 - 2.0 % [facility] Eosinophils (Bld) [#/Vol] 0.3 10*3/uL 0.0 - 0.5 10*3/uL [facility] Eosinophils/100 WBC (Bld) 3.2 % 0.0 - 6.0 % [facility] Erythrocyte distribution width (RBC) [Ratio] 14.3 % 11.5 - 15.0 % [facility] Hematocrit (Bld) [Volume fraction] 33.8 % Low 35.0 - 47.0 % [facility] Hemoglobin (Bld) [Mass/Vol] 10.5 g/dL Low 11.7 - 16.0 g/dL [facility] [employer] Immature granulocytes (Bld) [#/Vol] 0 10*3/uL NINF - 0.1 10*3/uL [facility] Immature granulocytes/100 WBC (Bld) 0.1 % 0.0 - 2.0 % [facility] Interpretation and review of laboratory results Abnormal [facility] Lymphocytes (Bld) [#/Vol] 1.2 10*3/uL 1.0 - 4.3 10*3/uL [facility] Lymphocytes/100 WBC (Bld) 14.2 % Low 15.0 - 45.0 % [facility] MCH (RBC) [Entitic mass] 31.1 pg 26. 0 - 34.0 pg [facility] MCHC (RBC) [Mass/Vol] 31.1 % 30.5 - 36.0 % [facility] MCV (RBC) [Entitic vol] 100 fL High 77.0 - 99.0 fL [facility] Monocytes (Bld) [#/Vol] 0.8 10*3/uL 0.0 - 0.9 10*3/uL [facility] Monocytes/100 WBC (Bld) 9.6 % 5.0 - 13.0 % [facility] Neutrophils (Bld) [#/Vol] 6.3 10*3/uL 1.8 - 7.5 10*3/uL [facility] Neutrophils/100 WBC (Bld) 72.7 % 38.0 - 82.0 % [facility] Nucleated RBC/100 WBC (Bld) [Ratio] 0 % [facility] Platelet mean volume (Bld) [Entitic vol] 9.9 fL 9.0 - 12.7 fL [facility] Platelets (Bld) [#/Vol] 189 10*3/uL 140 - 440 10*3/uL [facility] RBC (Bld) [#/Vol] 3.38 10*6/uL Low 3.80 - 5.2 0 10*6/uL [facility] WBC (Bld) [#/Vol] 8.7 10*3/uL 3.6 - 10.7 10*3/uL [facility] CBC WITH AUTO DIFFERENTIALon 08-07-2024 Basophils (Bld) [#/Vol] 0.0 10*3/uL Normal 0.0-0.[address] [facility] Comment on above: Performed By: #### L [id number] ####Qa Automation Architect: HANS PAULSON ([id number])[facility] (SBHLAB)[address] [place] [address] Basophils/100 WBC (Bld) 0.2 % Normal 0.0-2.0 [facility] Comment on above: Performed By: #### L [id number] ####Qa Automation Architect: HANS PAULSON ([id number])[facility] ([facility])[address] [place] [address] Eosinophils (Bld) [#/Vol] 0.3 10*3/uL Normal 0.0-0.[address] [facility] Comment on above: Performed By: #### L [id number] ####Qa Automation Architect: HANS PAULSON ([id number])[facility] (SBHLAB)[address] [place] [address] [place] Eosinophils/100 WBC (Bld) 3.2 % Normal 0.0-6.[address] [facility] Comment on above: Performed By: #### L [id number] ####Qa Automation Architect: HANS PAULSON ([id number])[facility] (SBHLAB)[address] Erythrocyte distribution width (RBC) [Ratio] 14.3 % Normal 11.5-15.0 [facility] Comment on above: Performed By: #### L [id number] ####Qa Automation Architect: HANS PAULSON ([id number])[facility] (SBHLAB)[address] Hematocrit (Bld) [Volume fraction] 33.8 % Low 35.0-47.0 [facility] Comment on above: Performed By: #### L [id number] ####Qa Automation Architect: HANS PAULSON ([id number])[facility] [place] [address] Hemoglobin (Bld) [Mass/Vol] 10.5 g/dL Low 11.7-16.0 [facility] Comment on above: Performed By: #### L [id number] ####Qa Automation Architect: HANS PAULSON ([id number])[facility] (SBHLAB)[address] IMMATURE GRANS % 0.1 % Normal 0.0-2.0 [facility] Comment on above: Performed By: #### L [id number] ####Qa Automation Architect: HANS PAULSON ([id number])[facility] [place] [address] IMMATURE GRANS ABSOLUTE 0.0 10*3/uL Normal <0.1 [facility] Comment on above: Performed By: #### L [id number] ####Qa Automation Architect: HANS PAULSON ([id number])[facility] (SBHLAB)[address] Lymphocytes (Bld) [#/Vol] 1.2 10*3/uL Normal 1.0-4.3 [facility] Comment on above: Performed By: #### L [id number] ####Qa Automation Architect: HANS PAULSON ([id number])[facility] (SBHLAB)[address] Lymphocytes/100 WBC (Bld) 14.2 % Low 15.0-45.[address] [facility] Comment on above: Performed By: #### L [id number] ####Qa Automation Architect: HANS PAULSON ([id number])[facility] (SBHLAB)[address] MCH (RBC) [Entitic mass] 31.1 pg Normal 26.0-34.[address] [facility] Comment on above: Performed By: #### L [id number] ####Qa Automation Architect: HANS PAULSON ([id number])[facility] (SBHLAB)[address] MCHC 31.1 % Normal 30.5-36.[address] [facility] Comment on above: Performed By: #### L [id number] ####Qa Automation Architect: HANS PAULSON ([id number])[facility] (SBHLAB)[address] MCV (RBC) [Entitic vol] 100.0 fL High 77.0-99.0 [facility] Comment on above: Performed By: #### L [id number] ####Qa Automation Architect: HANS PAULSON ([id number])[facility] (SBHLAB)[address] Monocytes (Bld) [#/Vol] 0.8 10*3/uL Normal 0.0-0.[address] [facility] Comment on above: Performed By: #### L [id number] ####Qa Automation Architect: HANS PAULSON ([id number])[facility] (SBHLAB)[address] Monocytes/100 WBC (Bld) 9.6 % Normal 5.0-13.0 [facility] Comment on above: Performed By: #### L [id number] ####Qa Automation Architect: HANS PAULSON ([id number])[facility] (SBHLAB)[address] NEUTROPHILS ABSOLUTE 6.3 10*3/uL Normal 1.8-7.5 [facility] Comment on above: Performed By: #### L [id number] ####Qa Automation Architect: HANS PAULSON ([id number])[facility] (SBHLAB)[address] Neutrophils/100 WBC (Bld) 72.7 % Normal 38.0-82.0 [facility] Comment on above: Performed By: #### L [id number] ####Qa Automation Architect: HANS PAULSON ([id number])[facility] (SBHLAB)[address] NRBC 0.0 /100 WBCs Normal 0.0-2.0 [facility] Comment on above: Performed By: #### L [id number] ####Qa Automation Architect: HANS PAULSON ([id number])[facility] (SBHLAB)[address] Platelet mean volume (Bld) [Entitic vol] 9.9 fL Normal 9.0-12.7 [facility] Comment on above: Performed By: #### L [id number] ####Qa Automation Architect: HANS PAULSON ([id number])[facility] (SBHLAB)[address] Platelets (Bld) [#/Vol] 189 10*3/uL Normal 140-440 [facility] Comment on above: Performed By: #### L [id number] ####Qa Automation Architect: HANS PAULSON ([id number])[facility] (SBHLAB)[address] RBC (Bld) [#/Vol] 3.38 10*6/uL Low 3.80-5.20 [facility] Comment on above: Performed By: #### L [id number] ####Qa Automation Architect: HANS PAULSON ([id number])[facility] (SBHLAB)[address] WBC (Bld) [#/Vol] 8.7 10*3/uL Normal 3.6-10.7 [facility] Comment on above: Performed By: #### L [id number] ####Qa Automation Architect: HANS PAULSON ([id number])[facility] ([facility])[address] Progress Noteon 08-07-2024 Progress Note Normal [facility] Progress Note Normal [facility] 30on 08-06-2024 30 Normal [facility] 30 Normal [facility] 30 Normal [facility] [id number] 08-06-2024 [id number] Normal [facility] [id number] Normal [facility] BASIC METABOLIC PANELon 05 Anion gap [Moles/Vol] 7 mmol/L Normal 3-13 [facility] Comment on above: Performed By: #### L [id number] ####Qa Automation Architect: HANS PAULSON ([id number])[facility] (SBHLAB)[address] Calcium [Mass/Vol] 8.9 mg/dL Normal 8.8-10.0 [facility] Comment on above: Performed By: #### L [id number] ####Qa Automation Architect: HANS PAULSON ([id number])[facility] ([facility])[address] [place] [address] [place] Chloride [Moles/Vol] 101 mmol/L Normal 98-107 [facility] Comment on above: Performed By: #### L [id number] ####Qa Automation Architect: HANS PAULSNO ([id number])[facility] ([facility])[address] [place] [address] [place] CO2 [Moles/Vol] 33 mmol/L High 23-31 [facility] Comment on above: Performed By: #### L [id number] ####Qa Automation Architect: HANS PAULSON ([id number])[facility] (SBHLAB)[address] Creatinine [Mass/Vol] 0.56 mg/dL Low 0.57-1.11 [facility] Comment on above: Performed By: #### L [id number] ####Qa Automation Architect: HANS PAULSON ([id number])[facility] GLOMERULAR FILTRATION RATE ML/MIN/1.73 SQ M.PREDICTED >90.0 Normal >60.0 [facility] Comment on above: Result Comment: Calc ulation based on the Chronic Kidney Disease Epidemiology Collaboration (CKD-EPI) equation refit without adjustment for race Performed By: #### L [id number] ####Qa Automation Architect: HANS PAULSON ([id number])[facility] ([facility])[address] Glucose [Mass/Vol] 93 mg/dL Normal 82-115 [facility] Comment on above: Performed By: #### L [id number] ####Qa Automation Architect: HANS PAULSON ([id number])[facility] Potassium [Moles/Vol] 3.8 mmol/L Normal 3.5-5.1 [facility] Comment on above: Result Comment: [facility] potassium values may be up to 0.5 mmol/L lower than serum values. Performed By: #### L [id number] ####Qa Automation Architect: HANS PAULSON ([id number])[facility] (HLAB)[address] [place] [address] [place] Sodium [Moles/Vol] 141 mmol/L Normal 136-145 [facility] Comment on above: Performed By: #### L [id number] ####Qa Automation Architect: HANS PAULSON ([id number])[facility] [place] [address] [place] Urea nitrogen [Mass/Vol] 27 mg/dL High 9-23 [facility] Comment on above: Performed By: #### L [id number] ####Qa Automation Architect: HANS PAULSON ([id number])[facility] (SBHLAB)[address] Basic metabolic 1998 panelon 08-06-2024 Anion gap [Moles/Vol] 7 mmol/L 3 - 13 mmol/L [facility] Calcium [Mass/Vol] 8.9 mg/dL 8.8 - 10. 0 mg/dL [facility] Chloride [Moles/Vol] 101 mmol/L 98 - 10 7 mmol/L [facility] CO2 [Moles/Vol] 33 mmol/L High 23 - 31 mmol/L [facility] Creatinine [Mass/Vol] 0.56 mg/dL Low 0.57 - 1.11 mg/dL [facility] GFR/1.73 sq M.predicted (S/P/Bld) [Vol rate/Area] - PINF [facility] Comment on above: Calculation based on the Chronic Kidney Disease Epidemiology Collaboration (CKD-EPI) equation refit without adjustment for race Glucose [Mass/Vol] 93 mg/dL 82 - 115 mg/dL [facility] Interpretation and review of laboratory results Abnormal [facility] Potassium [Moles/Vol] 3.8 mmol/L 3.5 - 5.1 mmol/L [facility] Comment on above: Plasma potassium martín ues may be up to 0.5 mmol/L lower than serum values. Sodium [Moles/Vol] 141 mmol/L 136 - 145 mmol/L [facility] Urea nitrogen [Mass/Vol] 27 mg/dL High 9 - 23 mg/d L [facility] CBC W Auto Differential pane l (Bld)Ordered By: Hakeem Cruz on 08-06-2024 Basophils (Bld) [#/Vol] 0.1 10*3/uL 0.0 - 0.2 10*3/uL [facility] Basophils/100 WBC (Bld) 0.6 % 0.0 - 2.0 % [facility] Eosinophils (Bld) [#/Vol] 0.3 10*3/uL 0.0 - 0.5 10*3/uL [facility] Eosinophils/100 WBC (Bld) 3.3 % 0.0 - 6.0 % [facility] Erythrocyte distribution width (RBC) [Ratio] 14 % 11.5 - 15.0 % [facility] Hematocrit (Bld) [Volume fraction] 35.3 % 35.0 - 47.0 % [facility] Hemoglobin (Bld) [Mass/Vol] 10.7 g/dL Low 11.7 - 16.0 g/dL [facility] Immature granulocytes (Bld) [#/Vol] 0 10*3/uL NINF - 0.1 10*3/uL [facility] Immature granulocytes/100 WBC (Bld) 0.4 % 0.0 - 2.0 % [facility] Interpretation and review of laboratory results Abnormal [facility] Lymphocytes (Bld) [#/Vol] 1.4 10*3/uL 1.0 - 4.3 10*3/uL [facility] Lymphocytes/100 WBC (Bld) 18.1 % 15.0 - 45.0 % [facility] MCH (RBC) [Entitic mass] 30.8 pg 26. 0 - 34.0 pg [facility] MCHC (RBC) [Mass/Vol] 30.3 % Low 30.5 - 36.0 % [facility] MCV (RBC) [Entitic vol] 101.7 fL High 77.0 - 99.0 fL [facility] Monocytes (Bld) [#/Vol] 0.8 10*3/uL 0.0 - 0.9 10*3/uL [facility] Monocytes/100 WBC (Bld) 9.6 % 5.0 - 13.0 % [facility] Neutrophils (Bld) [#/Vol] 5.3 10*3/uL 1.8 - 7.5 10*3/uL [facility] Neutrophils/100 WBC (Bld) 68 % 38.0 - 82.0 % [facility] Nucleated RBC/100 WBC (Bld) [Ratio] 0 % [facility] Platelet mean volume (Bld) [Entitic vol] 9.6 fL 9.0 - 12.7 fL [facility] Platelets (Bld) [#/Vol] 166 10*3/uL 140 - 440 10*3/uL [facility] RBC (Bld) [#/Vol] 3.47 10*6/uL Low 3.80 - 5.2 0 10*6/uL [facility] WBC (Bld) [#/Vol] 7.8 10*3/uL 3.6 - 10.7 10*3/uL [facility] CBC WITH AUTO DIFFERENTIALon 08-06-2024 Basophils (Bld) [#/Vol] 0.1 10*3/uL Normal 0.0-0.2 [facility] Comment on above: Performed By: #### L [id number] ####Qa Automation Architect: HANS PAULSON ([id number])[facility] (SBHLAB)[address] Basophils/100 WBC (Bld) 0.6 % Normal 0.0-2.0 [facility] Comment on above: Performed By: #### L [id number] ####Qa Automation Architect: HANS PAULSON ([id number])[facility] (SBHLAB)[address] Eosinophils (Bld) [#/Vol] 0.3 10*3/uL Normal 0.0-0.5 [facility] Comment on above: Performed By: #### L [id number] ####Qa Automation Architect: HANS PAULSON ([id number])[facility] (SBHLAB)[address] Eosinophils/100 WBC (Bld) 3.3 % Normal 0.0-6.0 [facility] Comment on above: Performed By: #### L [id number] ####Qa Automation Architect: HANS PAULSON ([id number])[facility] (SBHLAB)[address] Erythrocyte distribution width (RBC) [Ratio] 14.0 % Normal 11.5-15.0 [facility] Comment on above: Performed By: #### L [id number] ####Qa Automation Architect: HANS PAULSON ([id number])[facility] (SBHLAB)[address] Hematocrit (Bld) [Volume fraction] 35.3 % Normal 35.0-47.[address] [facility] Comment on above: Performed By: #### L [id number] ####Qa Automation Architect: HANS PAULSON ([id number])[facility] (SBHLAB)[address] Hemoglobin (Bld) [Mass/Vol] 10.7 g/dL Low 11.7-16.[address] [facility] Comment on above: Performed By: #### L [id number] ####Qa Automation Architect: HANS PAULSON ([id number])[facility] (SBHLAB)[address] IMMATURE GRANS % 0.4 % Normal 0.0-2.0 [facility] Comment on above: Performed By: #### L [id number] ####Qa Automation Architect: HANS PAULSON ([id number])[facility] (SBHLAB)[address] IMMATURE GRANS ABSOLUTE 0.0 10*3/uL Normal <0.[address] [facility] Comment on above: Performed By: #### L [id number] ####Qa Automation Architect: HANS PAULSON ([id number])[facility] (SBHLAB)[address] Lymphocytes (Bld) [#/Vol] 1.4 10*3/uL Normal 1.0-4.3 [facility] Comment on above: Performed By: #### L [id number] ####Qa Automation Architect: HANS PAULSON ([id number])[facility] ([facility])[address] [place] [address] Lymphocytes/100 WBC (Bld) 18.1 % Normal 15.0-45.[address] [facility] Comment on above: Performed By: #### L [id number] ####Qa Automation Architect: HANS PAULSON ([id number])[facility] (SBHLAB)[address] MCH (RBC) [Entitic mass] 30.8 pg Normal 26.0-34.[address] [facility] Comment on above: Performed By: #### L [id number] ####Qa Automation Architect: HANS PAULSON ([id number])[facility] ([facility])[address] MCHC 30.3 % Low 30.5-36.0 [facility] Comment on above: Performed By: #### L [id number] ####Qa Automation Architect: HANS WALDROPKmiESCOBAR ([id number])[facility] (SBHLAB)[address] MCV (RBC) [Entitic vol] 101.7 fL High 77.0-99.0 [facility] Comment on above: Performed By: #### L [id number] ####Qa Automation Architect: HANS LORENE ([id number])[facility] (SBHLAB)[address] Monocytes (Bld) [#/Vol] 0.8 10*3/uL Normal 0.0-0.9 [facility] Comment on above: Performed By: #### L [id number] ####Qa Automation Architect: HANS LORENE ([id number])[facility] (SBHLAB)[address] Monocytes/100 WBC (Bld) 9.6 % Normal 5.0-13.0 [facility] Comment on above: Performed By: #### L [id number] ####Qa Automation Architect: HANS ALCANTARESCOBAR ([id number])[facility] (SBHLAB)[address] NEUTROPHILS ABSOLUTE 5.3 10*3/uL Normal 1.8-7.5 [facility] Comment on above: Performed By: #### L [id number] ####Qa Automation Architect: HANS WALDROPBOOESCOBAR ([id number])[facility] (SBHLAB)[address] Neutrophils/100 WBC (Bld) 68.0 % Normal 38.0-82.0 [facility] Comment on above: Performed By: #### L [id number] ####Qa Automation Architect: HANS ALCANTARESCOBAR ([id number])[facility] (SBHLAB)[address] NRBC 0.0 /100 WBCs Normal 0.0-2.0 [facility] Comment on above: Performed By: #### L [id number] ####Qa Automation Architect: HANS PAULSON ([id number])[facility] (SBHLAB)[address] Platelet mean volume (Bld) [Entitic vol] 9.6 fL Normal 9.0-12.7 [facility] Comment on above: Performed By: #### L [id number] ####Qa Automation Architect: HANS PAULSON ([id number])[facility] (SB[facility]AB)[address] Platelets (Bld) [#/Vol] 166 10*3/uL Normal 140-440 [facility] Comment on above: Performed By: #### L [id number] ####Qa Automation Architect: HANS PAULSON ([id number])[facility] (SB[facility]AB)[address] RBC (Bld) [#/Vol] 3.47 10*6/uL Low 3.80-5.[address] [facility] Comment on above: Performed By: #### L [id number] ####Qa Automation Architect: HANS PAULSON ([id number])[facility] (SBHLAB)[address] [place] [address] WBC (Bld) [#/Vol] 7.8 10*3/uL Normal 3.6-10.7 [facility] Comment on above: Performed By: #### L [id number] ####Qa Automation Architect: HANS PAULSON ([id number])[facility] ([facility])[address] Progress Noteon 08-06-2024 Progress Note Normal [facility] Progress Note Normal [facility] Progress Note Normal [facility] Progress Note Normal [facility] Progress Note Normal [facility] Progress Note Normal [facility] 30on 08-05-2024 30 Normal [facility] 30 Normal [facility] BASIC METABOLIC PANELon 07-19 Anion gap [Moles/Vol] 5 mmol/L Normal 3-13 [facility] Comment on above: Performed By: #### L [id number] ####[employer] Architect: HANS PAULSON ([id number])[facility] ([facility])[address] Calcium [Mass/Vol] 9.4 mg/dL Normal 8.8-10.0 [facility] Comment on above: Performed By: #### L [id number] ####[employer] Architect: HANS PAULSON ([id number])[facility] ([facility])[address] Chloride [Moles/Vol] 100 mmol/L Normal 98-107 [facility] Comment on above: Performed By: #### L [id number] ####[employer] Architect: HANS PAULSON ([id number])[facility] ([facility])[address] [place] [address] [place] CO2 [Moles/Vol] 36 mmol/L High 23-31 [facility] Comment on above: Performed By: #### L [id number] ####[employer] Architect: HANS PAULSON ([id number])[facility] ([facility])[address] Creatinine [Mass/Vol] 0.57 mg/dL Normal 0.57-1.11 [facility] Comment on above: Performed By: #### L [id number] ####Qa Automation Architect: HANS PAULSON ([id number])[facility] ([facility])[address] [place] [address] [place] GLOMERULAR FILTRATION RATE ML/MIN/1.73 SQ M.PREDICTED >90.0 Normal >60.0 [facility] Comment on above: Result Comment: Calc ulation based on the Chronic Kidney Disease Epidemiology Collaboration (CKD-EPI) equation refit without adjustment for race Performed By: #### L [id number] ####Qa Automation Architect: HANS PAULSON ([id number])[facility] ([facility])[address] Glucose [Mass/Vol] 102 mg/dL Normal 82-115 [facility] Comment on above: Performed By: #### L [id number] ####Qa Automation Architect: HANS PAULSON ([id number])[facility] (SBHLAB)[address] Potassium [Moles/Vol] 4.3 mmol/L Normal 3.5-5.1 [facility] Comment on above: Result Comment: [facility] potassium values may be up to 0.5 mmol/L lower than serum values. Performed By: #### L [id number] ####Qa Automation Architect: HANS PAULSON ([id number])[facility] ([facility])[address] Sodium [Moles/Vol] 141 mmol/L Normal 136-145 [facility] Comment on above: Performed By: #### L [id number] ####Qa Automation Architect: HANS PAULSON ([id number])[facility] (SBHLAB)[address] Urea nitrogen [Mass/Vol] 25 mg/dL High 9-23 [facility] Comment on above: Performed By: #### L [id number] ####Qa Automation Architect: HANS PAULSON ([id number])[facility] Bacteria identified Aer cx N om (Lower resp)Ordered By: Joaquina Andrade on 08-05-2024 Gram Stain Result Few Epithelial cells per low power field Abnormal [facility] Gram Stain Result Many Polymorphonucle ar leukocytes per low power field Abnormal [facility] Gram Stain Result Positive Abnormal [facility] Gram Stain Result Negative [facility] Interpretation and review of laboratory results Abnormal [facility] Basic metabolic 1998 panelon 08-05-2024 Anion gap [Moles/Vol] 5 mmol/L 3 - 13 mmol/L [facility] Calcium [Mass/Vol] 9.4 mg/dL 8.8 - 10. 0 mg/dL [facility] Chloride [Moles/Vol] 100 mmol/L 98 - 10 7 mmol/L [facility] CO2 [Moles/Vol] 36 mmol/L High 23 - 31 mmol/L [facility] Creatinine [Mass/Vol] 0.57 mg/dL 0.57 - 1.11 mg/dL [facility] GFR/1.73 sq M.predicted (S/P/Bld) [Vol rate/Area] - PINF [facility] Comment on above: Calculation based on the Chronic Kidney Disease Epidemiology Collaboration (CKD-EPI) equation refit without adjustment for race Glucose [Mass/Vol] 102 mg/dL 82 - 115 mg/dL [facility] Interpretation and review of laboratory results Abnormal [facility] Potassium [Moles/Vol] 4.3 mmol/L 3.5 - 5.1 mmol/L [facility] Comment on above: Plasma potassium martín ues may be up to 0.5 mmol/L lower than serum values. Sodium [Moles/Vol] 141 mmol/L 136 - 145 mmol/L [facility] Urea nitrogen [Mass/Vol] 25 mg/dL High 9 - 23 mg/d L [facility] CBC W Auto Differential pane l (Bld)Ordered By: Yair Sanchez on 08-05-2024 Basophils (Bld) [#/Vol] 0 10*3/uL 0.0 - 0.2 10*3/uL [facility] Basophils/100 WBC (Bld) 0.3 % 0.0 - 2.0 % [facility] Eosinophils (Bld) [#/Vol] 0.1 10*3/uL 0.0 - 0.5 10*3/uL [facility] Eosinophils/100 WBC (Bld) 0.6 % 0.0 - 6.0 % [facility] Erythrocyte distribution width (RBC) [Ratio] 13.9 % 11.5 - 15.0 % [facility] Hematocrit (Bld) [Volume fraction] 38.5 % 35.0 - 47.0 % [facility] Hemoglobin (Bld) [Mass/Vol] 12 g/dL 11.7 - 16.0 g/dL [facility] Immature granulocytes (Bld) [#/Vol] 0 10*3/uL NINF - 0.1 10*3/uL [facility] Immature granulocytes/100 WBC (Bld) 0.2 % 0.0 - 2.0 % [facility] Interpretation and review of laboratory results Abnormal [facility] Lymphocytes (Bld) [#/Vol] 1.5 10*3/uL 1.0 - 4.3 10*3/uL [facility] Lymphocytes/100 WBC (Bld) 14.9 % Low 15.0 - 45.0 % [facility] MCH (RBC) [Entitic mass] 31.6 pg 26. 0 - 34.0 pg [facility] MCHC (RBC) [Mass/Vol] 31.2 % 30.5 - 36.0 % [facility] MCV (RBC) [Entitic vol] 101.3 fL High 77.0 - 99.0 fL [facility] Monocytes (Bld) [#/Vol] 1.2 10*3/uL High 0.0 - 0.9 10*3/uL [facility] Monocytes/100 WBC (Bld) 12 % 5.0 - 13.0 % [facility] Neutrophils (Bld) [#/Vol] 7.1 10*3/uL 1.8 - 7.5 10*3/uL [facility] Neutrophils/100 WBC (Bld) 72 % 38.0 - 82.0 % [facility] Nucleated RBC/100 WBC (Bld) [Ratio] 0 % [facility] Platelet mean volume (Bld) [Entitic vol] 9.8 fL 9.0 - 12.7 fL [facility] Platelets (Bld) [#/Vol] 221 10*3/uL 140 - 440 10*3/uL [facility] RBC (Bld) [#/Vol] 3.8 10*6/uL 3.80 - 5.2 0 10*6/uL [facility] WBC (Bld) [#/Vol] 9.9 10*3/uL 3.6 - 10.7 10*3/uL [facility] CBC WITH AUTO DIFFERENTIALon 08-05-2024 Basophils (Bld) [#/Vol] 0.0 10*3/uL Normal 0.0-0.2 [facility] Comment on above: Performed By: #### L [id number] ####Qa Automation Architect: HANS PAULSON ([id number])[facility] (SBHLAB)[address] Basophils/100 WBC (Bld) 0.3 % Normal 0.0-2.0 [facility] Comment on above: Performed By: #### L [id number] ####Qa Automation Architect: HANS PAULSON ([id number])[facility] (SBHLAB)[address] Eosinophils (Bld) [#/Vol] 0.1 10*3/uL Normal 0.0-0.5 [facility] Comment on above: Performed By: #### L [id number] ####Qa Automation Architect: HANS PAULSON ([id number])[facility] (SBHLAB)[address] Eosinophils/100 WBC (Bld) 0.6 % Normal 0.0-6.0 [facility] Comment on above: Performed By: #### L [id number] ####Qa Automation Architect: HANS PAULSON ([id number])[facility] (SBHLAB)[address] Erythrocyte distribution width (RBC) [Ratio] 13.9 % Normal 11.5-15.0 [facility] Comment on above: Performed By: #### L [id number] ####Qa Automation Architect: HANS PAULSON ([id number])[facility] (SBHLAB)[address] Hematocrit (Bld) [Volume fraction] 38.5 % Normal 35.0-47.0 [facility] Comment on above: Performed By: #### L [id number] ####Qa Automation Architect: HANS PAULSON ([id number])[facility] ([facility])[address] Hemoglobin (Bld) [Mass/Vol] 12.0 g/dL Normal 11.7-16.0 [facility] Comment on above: Performed By: #### L [id number] ####Qa Automation Architect: HANS PAULSON ([id number])[facility] (SBHLAB)[address] IMMATURE GRANS % 0.2 % Normal 0.0-2.0 [facility] Comment on above: Performed By: #### L [id number] ####Qa Automation Architect: HANS ALCANTARESCOBAR ([id number])[facility] ([facility])[address] IMMATURE GRANS ABSOLUTE 0.0 10*3/uL Normal <0.[address] [facility] Comment on above: Performed By: #### L [id number] ####Qa Automation Architect: HANS PAULSON ([id number])[facility] (SBHLAB)[address] Lymphocytes (Bld) [#/Vol] 1.5 10*3/uL Normal 1.0-4.[address] [facility] Comment on above: Performed By: #### L [id number] ####Qa Automation Architect: HANS PAULSON ([id number])[facility])[address] Lymphocytes/100 WBC (Bld) 14.9 % Low 15.0-45.[address] [facility] Comment on above: Performed By: #### L [id number] ####Qa Automation Architect: HANS PAULSON ([id number])[facility] ([facility])[address] MCH (RBC) [Entitic mass] 31.6 pg Normal 26.0-34.[address] [facility] Comment on above: Performed By: #### L [id number] ####Qa Automation Architect: HANS PAULSON ([id number])[facility] (SBHLAB)[address] MCHC 31.2 % Normal 30.5-36.[address] [facility] Comment on above: Performed By: #### L [id number] ####Qa Automation Architect: HANS PAULSON ([id number])[facility] ([facility])[address] MCV (RBC) [Entitic vol] 101.3 fL High 77.0-99.0 [facility] Comment on above: Performed By: #### L [id number] ####Qa Automation Architect: HANS PAULSON ([id number])[facility] (SBHLAB)[address] Monocytes (Bld) [#/Vol] 1.2 10*3/uL High 0.0-0.9 [facility] Comment on above: Performed By: #### L [id number] ####Qa Automation Architect: HANS PAULSON ([id number])[facility] [place] ([facility])[address] Monocytes/100 WBC (Bld) 12.0 % Normal 5.0-13.0 [facility] Comment on above: Performed By: #### L [id number] ####Qa Automation Architect: HANS PAULSON ([id number])[facility] [place] ([facility])[address] NEUTROPHILS ABSOLUTE 7.1 10*3/uL Normal 1.8-7.5 [facility] Comment on above: Performed By: #### L [id number] ####Qa Automation Architect: HANS PAULSON ([id number])[facility] [place] ([facility])[address] Neutrophils/100 WBC (Bld) 72.0 % Normal 38.0-82.0 [facility] Comment on above: Performed By: #### L [id number] ####Qa Automation Architect: HANS PAULSON ([id number])[facility] ([facility])[address] NRBC 0.0 /100 WBCs Normal 0.0-2.0 [facility] Comment on above: Performed By: #### L [id number] ####Qa Automation Architect: HANS PAULSON ([id number])[facility] ([facility])[address] Platelet mean volume (Bld) [Entitic vol] 9.8 fL Normal 9.0-12.7 [facility] Comment on above: Performed By: #### L [id number] ####Qa Automation Architect: HANS AGUILARCER ([id number])[facility] (SBHLAB)[address] Platelets (Bld) [#/Vol] 221 10*3/uL Normal 140-440 [facility] Comment on above: Performed By: #### L [id number] ####Qa Automation Architect: HANS AGUILARCER ([id number])[facility] (SBHLAB)[address] [place] [address] RBC (Bld) [#/Vol] 3.80 10*6/uL Normal 3.80-5.20 [facility] Comment on above: Performed By: #### L [id number] ####Qa Automation Architect: HANS AGUILARCER ([id number])[facility] ([facility])[address] [place] [address] WBC (Bld) [#/Vol] 9.9 10*3/uL Normal 3.6-10.7 [facility] Comment on above: Performed By: #### L [id number] ####Qa Automation Architect: HANS WALDROPIVELISSE ([id number])[facility] (SBHLAB)[address] [place] [address] Laboratory - Microbiology an d Antimicrobial susceptibilityOrdered By: Joaquina Andrade on 08-05-2024 Bacteria identified Aer cx Nom (Lower resp) Many respiratory linus present. [facility] Bacteria identified Aer cx Nom (Lower resp) Many Pseudomonas aeruginosa Abnormal [facility] Progress Noteon 08-05-2024 Progress Note Normal [facility] Progress [facility] Normal [facility] Progress Note Normal [facility] Progress Note Normal [facility] 30on 08-04-2024 [address] [facility] 30 Normal [facility] [id number] 08-04-2024 [id number] Normal [facility] [id number] Normal [facility] BASIC METABOLIC PANELon 05-1 Anion gap [Moles/Vol] 6 mmol/L Normal 3-13 [facility] Comment on above: Performed By: #### L [id number] ####Qa Automation Architect: HANS PAULSON ([id number])[facility] ([facility])[address] Calcium [Mass/Vol] 8.4 mg/dL Low 8.8-10.0 [facility] Comment on above: Performed By: #### L [id number] ####Qa Automation Architect: HANS PAULSON ([id number])[facility] ([facility])[address] Chloride [Moles/Vol] 104 mmol/L Normal 98-107 [facility] Comment on above: Performed By: #### L [id number] ####Qa Automation Architect: HANS PAULSON ([id number])[facility] [place] ([facility])[address] CO2 [Moles/Vol] 32 mmol/L High 23-31 [facility] Comment on above: Performed By: #### L [id number] ####Qa Automation Architect: HANS PAULSON ([id number])[facility] ([facility])[address] Creatinine [Mass/Vol] 0.55 mg/dL Low 0.57-1.11 [facility] Comment on above: Performed By: #### L [id number] ####Qa Automation Architect: HANS PAULSON ([id number])[facility] ([facility])[address] GLOMERULAR FILTRATION RATE ML/MIN/1.73 SQ M.PREDICTED >90.0 Normal >60.0 [facility] Comment on above: Result Comment: Calc ulation based on the Chronic Kidney Disease Epidemiology Collaboration (CKD-EPI) equation refit without adjustment for race Performed By: #### L [id number] ####Qa Automation Architect: HANS PAULSON ([id number])[facility] ([facility])[address] Glucose [Mass/Vol] 111 mg/dL Normal 82-115 [facility] Comment on above: Performed By: #### L [id number] ####Qa Automation Architect: HANS PAULSON ([id number])[facility]ALTH[facility] (SBHLAB)[address] Potassium [Moles/Vol] 4.2 mmol/L Normal 3.5-5.1 [facility] Comment on above: Result Comment: [facility] potassium values may be up to 0.5 mmol/L lower than serum values. Performed By: #### L [id number] ####Qa Automation Architect: HANS PAULSON ([id number])[facility] (SBHLAB)[address] Sodium [Moles/Vol] 142 mmol/L Normal 136-145 [facility] Comment on above: Performed By: #### L [id number] ####Qa Automation Architect: HANS PAULSON ([id number])[facility] (HLAB)[address] Urea nitrogen [Mass/Vol] 26 mg/dL High 9-23 [facility] Comment on above: Performed By: #### L [id number] ####Qa Automation Architect: HANS PAULSON ([id number])[facility] Basic metabolic 1998 panelon 08-04-2024 Anion gap [Moles/Vol] 6 mmol/L 3 - 13 mmol/L [facility] Calcium [Mass/Vol] 8.4 mg/dL Low 8.8 - 10. 0 mg/dL [facility] Chloride [Moles/Vol] 104 mmol/L 98 - 10 7 mmol/L [facility] CO2 [Moles/Vol] 32 mmol/L High 23 - 31 mmol/L [facility] Creatinine [Mass/Vol] 0.55 mg/dL Low 0.57 - 1.11 mg/dL [facility] GFR/1.73 sq M.predicted (S/P/Bld) [Vol rate/Area] - PINF [facility] Comment on above: Calculation based on the Chronic Kidney Disease Epidemiology Collaboration (CKD-EPI) equation refit without adjustment for race Glucose [Mass/Vol] 111 mg/dL 82 - 115 mg/dL [facility] Interpretation and review of laboratory results Abnormal [facility] Potassium [Moles/Vol] 4.2 mmol/L 3.5 - 5.1 mmol/L [facility] Comment on above: Plasma potassium martín ues may be up to 0.5 mmol/L lower than serum values. Sodium [Moles/Vol] 142 mmol/L 136 - 145 mmol/L [facility] Urea nitrogen [Mass/Vol] 26 mg/dL High 9 - 23 mg/d L [facility] CBC W Auto Differential pane l (Bld)on 08-04-2024 Basophils (Bld) [#/Vol] 0 10*3/uL 0.0 - 0.2 10*3/uL [facility] Basophils/100 WBC (Bld) 0.2 % 0.0 - 2.0 % [facility] Eosinophils (Bld) [#/Vol] 0 10*3/uL 0.0 - 0.5 10*3/uL [facility] Eosinophils/100 WBC (Bld) 0.4 % 0.0 - 6.0 % [facility] Erythrocyte distribution width (RBC) [Ratio] 13.8 % 11.5 - 15.0 % [facility] Hematocrit (Bld) [Volume fraction] 32.5 % Low 35.0 - 47.0 % [facility] Hemoglobin (Bld) [Mass/Vol] 10.2 g/dL Low 11.7 - 16.0 g/dL [facility] [employer] Immature granulocytes (Bld) [#/Vol] 0 10*3/uL NINF - 0.1 10*3/uL [facility] [employer] Immature granulocytes/100 WBC (Bld) 0.4 % 0.0 - 2.0 % [facility] Interpretation and review of laboratory results Abnormal [facility] Lymphocytes (Bld) [#/Vol] 1 10*3/uL 1.0 - 4.3 10*3/uL [facility] Lymphocytes/100 WBC (Bld) 11.8 % Low 15.0 - 45.0 % [facility] MCH (RBC) [Entitic mass] 31.6 pg 26. 0 - 34.0 pg [facility] MCHC (RBC) [Mass/Vol] 31.4 % 30.5 - 36.0 % [facility] MCV (RBC) [Entitic vol] 100.6 fL High 77.0 - 99.0 fL [facility] Monocytes (Bld) [#/Vol] 1 10*3/uL High 0.0 - 0.9 10*3/uL [facility] Monocytes/100 WBC (Bld) 11.6 % 5.0 - 13.0 % [facility] Neutrophils (Bld) [#/Vol] 6.2 10*3/uL 1.8 - 7.5 10*3/uL [facility] Neutrophils/100 WBC (Bld) 75.6 % 38.0 - 82.0 % [facility] Nucleated RBC/100 WBC (Bld) [Ratio] 0 % [facility] Platelet mean volume (Bld) [Entitic vol] 9.6 fL 9.0 - 12.7 fL [facility] Platelets (Bld) [#/Vol] 164 10*3/uL 140 - 440 10*3/uL [facility] RBC (Bld) [#/Vol] 3.23 10*6/uL Low 3.80 - 5.2 0 10*6/uL [facility] WBC (Bld) [#/Vol] 8.2 10*3/uL 3.6 - 10.7 10*3/uL [facility] CBC WITH AUTO DIFFERENTIALon 08-04-2024 Basophils (Bld) [#/Vol] 0.0 10*3/uL Normal 0.0-0.[address] [facility] Comment on above: Performed By: #### L [id number] ####Qa Automation Architect: HANS PAULSON ([id number])[facility] ([facility])[address] Basophils/100 WBC (Bld) 0.2 % Normal 0.0-2.0 [facility] Comment on above: Performed By: #### L [id number] ####Qa Automation Architect: AHNS PAULSON ([id number])[facility] [place] ([facility])[address] Eosinophils (Bld) [#/Vol] 0.0 10*3/uL Normal 0.0-0.5 [facility] Comment on above: Performed By: #### L [id number] ####Qa Automation Architect: HANS ALCANTARESCOBAR ([id number])[facility] ([facility])[address] [place] [address] Eosinophils/100 WBC (Bld) 0.4 % Normal 0.0-6.0 [facility] Comment on above: Performed By: #### L [id number] ####Qa Automation Architect: HANS ALCANTARESCOBAR ([id number])[facility] ([facility])[address] [place] [address] Erythrocyte distribution width (RBC) [Ratio] 13.8 % Normal 11.5-15.0 [facility] Comment on above: Performed By: #### L [id number] ####Qa Automation Architect: HANS WALDROPIVELISSE ([id number])[facility] ([facility])[address] [place] [address] Hematocrit (Bld) [Volume fraction] 32.5 % Low 35.0-47.0 [facility] Comment on above: Performed By: #### L [id number] ####Qa Automation Architect: HANS ALCANTARESCOBAR ([id number])[facility] ([facility])[address] [place] [address] Hemoglobin (Bld) [Mass/Vol] 10.2 g/dL Low 11.7-16.0 [facility] Comment on above: Performed By: #### L [id number] ####Qa Automation Architect: HANS ALCANTARESCOBAR ([id number])[facility] [place] [address] IMMATURE GRANS % 0.4 % Normal 0.0-2.0 [facility] Comment on above: Performed By: #### L [id number] ####Qa Automation Architect: HANS PAULSON ([id number])[facility] ([facility])[address] [place] [address] IMMATURE GRANS ABSOLUTE 0.0 10*3/uL Normal <0.[address] [facility] Comment on above: Performed By: #### L [id number] ####Qa Automation Architect: HANS PAULSON ([id number])[facility] (SBHLAB)[address] Lymphocytes (Bld) [#/Vol] 1.0 10*3/uL Normal 1.0-4.[address] [facility] Comment on above: Performed By: #### L [id number] ####Qa Automation Architect: HANS PAULSON ([id number])[facility] (SBHLAB)[address] Lymphocytes/100 WBC (Bld) 11.8 % Low 15.0-45.[address] [facility] Comment on above: Performed By: #### L [id number] ####Qa Automation Architect: HANS PAULSON ([id number])[facility] (SB[facility]AB)[address] [place] [address] MCH (RBC) [Entitic mass] 31.6 pg Normal 26.0-34.[address] [facility] Comment on above: Performed By: #### L [id number] ####Qa Automation Architect: HANS PAULSON ([id number])[facility] (SB[facility])[address] [place] [address] MCHC 31.4 % Normal 30.5-36.[address] [facility] Comment on above: Performed By: #### L [id number] ####Qa Automation Architect: HANS PAULSON ([id number])[facility]ALTHNorma [facility]BDZILTH[facility] (SBHLAB)[address] [place] [address] MCV (RBC) [Entitic vol] 100.6 fL High 77.0-99.0 [facility] Comment on above: Performed By: #### L [id number] ####Qa Automation Architect: HANS PAULSON ([id number])[facility] ([facility])[address] [place] [address] Monocytes (Bld) [#/Vol] 1.0 10*3/uL High 0.0-0.[address] [facility] Comment on above: Performed By: #### L [id number] ####Qa Automation Architect: HANS PAULSON ([id number])[facility] (SBHLAB)[address] Monocytes/100 WBC (Bld) 11.6 % Normal 5.0-13.0 [facility] Comment on above: Performed By: #### L [id number] ####Qa Automation Architect: HANS PAULSON ([id number])[facility] ([facility])[address] NEUTROPHILS ABSOLUTE 6.2 10*3/uL Normal 1.8-7.5 [facility] Comment on above: Performed By: #### L [id number] ####Qa Automation Architect: HANS PAULSON ([id number])[facility] ([facility])[address] Neutrophils/100 WBC (Bld) 75.6 % Normal 38.0-82.0 [facility] Comment on above: Performed By: #### L [id number] ####Qa Automation Architect: HANS PAULSON ([id number])[facility] ([facility])[address] NRBC 0.0 /100 WBCs Normal 0.0-2.0 [facility] Comment on above: Performed By: #### L [id number] ####Qa Automation Architect: HANS PUALSON ([id number])[facility] ([facility])[address] Platelet mean volume (Bld) [Entitic vol] 9.6 fL Normal 9.0-12.[address] [facility] Comment on above: Performed By: #### L [id number] ####Qa Automation Architect: HANS PAULSON ([id number])[facility] ([facility])[address] [place] [address] [place] Platelets (Bld) [#/Vol] 164 10*3/uL Normal 140-440 [facility] Comment on above: Performed By: #### L [id number] ####Qa Automation Architect: HANS PAULSON ([id number])[facility] ([facility])[address] RBC (Bld) [#/Vol] 3.23 10*6/uL Low 3.80-5.20 [facility] Comment on above: Performed By: #### L [id number] ####Qa Automation Architect: HANS PAULSON ([id number])[facility] ([facility])[address] WBC (Bld) [#/Vol] 8.2 10*3/uL Normal 3.6-10.7 [facility] Comment on above: Performed By: #### L [id number] ####[employer] Architect: HANS PAULSON ([id number])[facility] [place] [address] Progress Noteon 08-04-2024 Progress Note Normal [facility] Progress Note Normal [facility] Progress Note Nutrition note -received consult for poor jeri <12 . Jeri is 21 -already being followed by [facility]. [facility] 30on 08-03-2024 30 [facility] Center 30 [facility] [id number] 08-03-2024 [id number] Tasked weekend family caseworker to follow for pending auth to [facility]. [phone] will need to be completed at the time of discharge. vending manager to follow and assist as needed. [facility] [phone] Sent updated notes t o [facility] via [facility] per [facility] request. Await review and response regarding ability to accept. TCC notified. [facility] [id number] [facility] Progress Noteon 05-16-2025 Progress Note Normal [facility] [...] h System SHS 30on 08-02-2024 30 Normal [facility] 30 Normal [facility] [id number] 08-02-2024 [id number] Normal [facility] [id number] Normal [facility]S Progress Noteon 08-02-2024 Progress Note [...] h System SHS 30on 08-01-2024 30 Normal [facility]S [id number] 08-01-2024 [id number] Normal [facility] Consulton 08-01-2024 Consult Normal [facility] PNEUMONIA PCR PANELon 2024 PNEUMONIA PCR PANEL Normal [facility] Comment on above: Performed By: #### L [id number], [id number] ####Qa Automation Architect: AMELIE ELIZABETH ([id number])[address] Progress Noteon 08-01-2024 Progress Note Normal [facility] Progress Note Normal [facility] Progress Note Normal [facility] Progress Note Normal [facility] Progress Note Normal [facility] Progress Note Normal [facility] RESPIRATORY CULTURE AND STAI Non 08-01-2024 RESPIRATORY CULTURE AND STAIN Normal [facility] Comment on above: Performed By: #### L [id number], [id number] ####Qa Automation Architect: AMELIE ELIZABETH ([id number])[facility])[address] [place] [address] Respiratory pathogens DNA an d RNA panel MILANA+non-probe (Lower resp)Ordered By: Calvin Brown on 08-01-2024 Acinetobacter baumannii complex Not detected Not Detected [facility] Adenovirus Not detected Not Detected [facility] Chlamydia pneumoniae Not detected Not Detected [facility] Enterobacter cloacae complex Not detected Not Detected [facility] Escherichia coli Not detected Not Detected [facility] FLUAV RNA MILANA+non-probe Ql (Lower resp) Not detected Not Detected [facility] FLUBV RNA MILANA+non-probe Ql (Lower resp) Not detected Not Detected [facility] Haemophilus influenzae Not detected Not Detecte d [facility] Human Metapneumovirus Not detected Not Detected [facility] Human Rhinovirus/Enterovirus Not detected Not Detected [facility] Interpretation and review of laboratory results Abnormal [facility] Klebsiella (Enterobacter) aerogenes Not detected Not Detected [facility] Klebsiella oxytoca Not detected Not Detected [facility] Klebsiella pneumoniae Not detected Not Detected [facility] Legionella pneumophila Not detected Not Detecte d [facility] Moraxella catarrhalis Detected Abnormal Not Detected [facility] Mycoplasma pneumoniae Not detected Not Detected [facility] Parainfluenza virus Not detected Not Detected [facility] Proteus spp Not detected Not Detected [facility] Pseudomonas aeruginosa Detected Abnormal Not Detected [facility] RSV RNA MILANA+probe Ql (Resp) Not detected Not Detected [facility] S. agalactiae Org specific cx Ql (Vag fld) Detected Abnormal Not Detected [facility] SARS-CoV-2 (COVID-19) RNA MILANA+non-probe Ql (Nph) Not detected Not Detected [facility] SARS-CoV-2 (COVID-19) RNA MILANA+probe Ql (Unsp spec) Methodology: Multiplex PCR This panel does not test for SARS-CoV-2 (Covid-19). The following antimicrobial resistance gene is reported if the appropriate organism is detected: mecA. The following antimicrobial resistance genes are reported if detected and the appropriate organisms are detected: CTX-M, IMP, KPC, NDM, OXA-48-like, and VIM. [facility] Serratia marcescens Not detected Not Detected [facility] Staphylococcus aureus Not detected Not Detected [facility] Streptococcus pneumoniae Not detected Not Detec tommy [facility] Streptococcus pyogenes Not detected Not Detecte d [facility] [id number] 07-31-2024 [id number] Head Piece Assembler following case for Discharge Needs. Normal [facility] [id number] 07-31-2024 [id number] Normal [facility] [id number] Normal [facility] CRP [Mass/Vol]on 07-31-2024 Interpretation and review of laboratory results Normal [facility] CT Abdomen and Pelvis WO and [...] MD Electronically Signed Date/Time: 07/31/2024 4:14 PM [facility] Patient Name: GONZALO DELUCA : 1955 [facility]#: [id number] Exam Date/Time: 07/31/2024 15:25 Procedure: CT CHEST [...] 07/31/2024 [facility] Name[facility] 1955 [id number] Exam Date/Time: 07/31/2024 15:25 Procedure: CT CHEST [...] Date/Time: 07/31/2024 4:14 PM EDT [facility] Radiology Study observation (narrative) [facility] CT Abdomen and Pelvis WO and W contrast IVOrdered By: Brando Tejada on 07-31-2024 [facility] Work Phone: CT CHEST ABDOMEN PELVIS W CO NTRASTon 07-31-2024 CT CHEST ABDOMEN PELVIS W CONTRAST Normal [facility]S Consulton 07-31-2024 Consult Normal [facility] Consult Normal [facility] Consult Normal [facility] Consult Normal [facility] Laboratory - Chemistry and C hemistry - challengeon 07-31-2024 TSH Qn 0.28 m[IU]/L Low [facility] Procalcitonin [Mass/Vol] 0.03 ng/mL NICHOLAS F - 0.07 ng/mL [facility] CRP [Mass/Vol] 1.4 mg/L [facility] 5[facility] mg/L [facility] Procalcitonin [Mass/Vol]on 0 07-31-2024 Interpretation and review of laboratory results Normal [facility] PCT <0.50 = Low risk of severe sepsis and/or septic shock. PCT >2.00 = High risk of severe sepsis and/or septic shock. [facility] Progress Noteon 07-31-2024 Progress Note [facility] Progress [facility] Progress Note Normal [facility] Progress [facility] Normal [facility] Progress Note Normal [facility] Progress Note Normal [facility] RESPIRATORY PATHOGENS PANEL BY PCRon 07-31-2024 RESPIRATORY PATHOGENS PANEL BY PCR Normal [facility] Comment on above: Performed By: #### L [id number] ####Qa Automation Architect: AMELIE ELIZABETH ([id number])[facility] ([facility])[address] [place] [address] Respiratory pathogens DNA an d RNA panel MILANA+non-probe (Nph)on 07-31-2024 Adenovirus Not detected Not Detected [facility] B. pertussis DNA MILANA+probe Ql (Unsp spec) Not detected Not Detected [facility] Bordetella parapertussis Not detected Not Detec tommy [facility] Chlamydia pneumoniae Not detected Not Detected [facility] Coronavirus 229E Not detected Not Detected [facility] Coronavirus HKU1 Not detected Not Detected [facility] Coronavirus NL63 Not detected Not Detected [facility] Coronavirus OC43 Not detected Not Detected [facility] FLUAV RNA MILANA+non-probe Ql (Nph) Not detected Not Detected [facility] FLUBV RNA MILANA+non-probe Ql (Nph) Not detected Not Detected [facility] Human Metapneumovirus Not detected Not Detected [facility] Human Rhinovirus/Enterovirus Not detected Not Detected [facility] Interpretation and review of laboratory results Normal [facility] Mycoplasma pneumoniae Not detected Not Detected [facility] Parainfluenza 1 Not detected Not Detected [facility] Parainfluenza 2 Not detected Not Detected [facility] Parainfluenza 3 Not detected Not Detected [facility] Parainfluenza 4 Not detected Not Detected [facility] Respiratory Syncytial Virus Not detected Not Detected [facility] SARS-CoV-2 (COVID-19) RNA MILANA+non-probe Ql (Nph) Not detected Not Detected [facility] Methodology: Multipl ex PCR [facility] TSH Qnon 07-31-2024 Interpretation and review of laboratory results Abnormal [facility] BASIC METABOLIC PANELon 07-19 Anion gap [Moles/Vol] 4 mmol/L Normal 05-31 [facility] Comment on above: Performed By: #### L AB69, LAB15, RWI587, LAB99, LAB67, NRX628, LAB20, EOI916, [id number] ####Qa Automation Architect: HANS PAULSON ([id number])[facility] ([facility])[address] Calcium [Mass/Vol] 8.8 mg/dL Normal 8.8-10.0 [facility] Comment on above: Performed By: #### L AB69, LAB15, RDB657, LAB99, LAB67, ULV999, LAB20, CDP130, [id number] ####Qa Automation Architect: HANS PAULSON ([id number])[facility] ([facility])[address] Chloride [Moles/Vol] 103 mmol/L Normal 98-107 [facility] Comment on above: Performed By: #### L AB69, LAB15, TWI394, LAB99, LAB67, VOI186, LAB20, PTS247, [id number] ####Qa Automation Architect: HANS PAULSON ([id number])[facility] ([facility])[address] CO2 [Moles/Vol] 37 mmol/L High 23-31 [facility] Comment on above: Performed By: #### L AB69, LAB15, OFO820, LAB99, LAB67, NVX603, LAB20, EGW436, [id number] ####Qa Automation Architect: HANS PAULSON ([id number])[facility] ([facility])[address] Creatinine [Mass/Vol] 0.63 mg/dL Normal 0.57-1.11 [facility] Comment on above: Performed By: #### L AB69, LAB15, CBF435, LAB99, LAB67, WUM852, LAB20, DSD535, [id number] ####Qa Automation Architect: HANS PAULSON ([id number])[facility] ([facility])[address] GLOMERULAR FILTRATION RATE ML/MIN/1.73 SQ M.PREDICTED >90.0 Normal >60.0 [facility] Comment on above: Result Comment: Calc ulation based on the Chronic Kidney Disease Epidemiology Collaboration (CKD-EPI) equation refit without adjustment for race Performed By: #### L AB69, LAB15, GNH321, LAB99, LAB67, PAZ373, LAB20, HKU953, [id number] ####Qa Automation Architect: HANS PAULSON ([id number])[facility] ([facility])[address] Glucose [Mass/Vol] 80 mg/dL Low 82-115 [facility] Comment on above: Performed By: #### L AB69, LAB15, URA373, LAB99, LAB67, URC004, LAB20, DOM345, [id number] ####Qa Automation Architect: HANS PAULSON ([id number])[facility] ([facility])[address] Potassium [Moles/Vol] 5.0 mmol/L Normal 3.5-5.1 [facility] Comment on above: Result Comment: [facility] potassium values may be up to 0.5 mmol/L lower than serum values. Performed By: #### L AB69, LAB15, YHC669, LAB99, LAB67, OCC310, LAB20, MEX574, [id number] ####Qa Automation Architect: HANS PAULSON ([id number])[facility] [place] [address] Sodium [Moles/Vol] 144 mmol/L Normal 136-145 [facility] Comment on above: Performed By: #### L AB69, LAB15, DOL199, LAB99, LAB67, KDM022, LAB20, SQJ831, [id number] ####Qa Automation Architect: HANS PAULSON ([id number])[facility] ([facility])[address] [place] [address] [place] Urea nitrogen [Mass/Vol] 16 mg/dL Normal 9-23 [facility] Comment on above: Performed By: #### L AB69, LAB15, RQL134, LAB99, LAB67, HNR609, LAB20, ZPW498, [id number] ####Qa Automation Architect: HANS PAULSON ([id number])[facility] ([facility]AB)[address] Basic metabolic 1998 panelon 07-30-2024 Anion gap [Moles/Vol] 4 mmol/L 3 - 13 mmol/L [facility] Calcium [Mass/Vol] 8.8 mg/dL 8.8 - 10. 0 mg/dL [facility] Chloride [Moles/Vol] 103 mmol/L 98 - 10 7 mmol/L [facility] CO2 [Moles/Vol] 37 mmol/L High 23 - 31 mmol/L [facility] Creatinine [Mass/Vol] 0.63 mg/dL 0.57 - 1.11 mg/dL [facility] GFR/1.73 sq M.predicted (S/P/Bld) [Vol rate/Area] - PINF [facility] Comment on above: Calculation based on the Chronic Kidney Disease Epidemiology Collaboration (CKD-EPI) equation refit without adjustment for race Glucose [Mass/Vol] 80 mg/dL Low 82 - 115 mg/dL [facility] Potassium [Moles/Vol] 5 mmol/L 3.5 - 5.1 mmol/L [facility] Comment on above: Plasma potassium martín ues may be up to 0.5 mmol/L lower than serum values. Sodium [Moles/Vol] 144 mmol/L 136 - 145 mmol/L [facility] Urea nitrogen [Mass/Vol] 16 mg/dL 9 - 23 mg/d L [facility] C-REACTIVE PROTEINon 025 CRP [Mass/Vol] 1.4 mg/L Normal <5.0 [facility] Comment on above: Performed By: #### L AB69, LAB15, JFW855, LAB99, LAB67, QZU861, LAB20, IVO121, [id number] ####Qa Automation Architect: HANS PAULSON ([id number])[facility] ([facility])[address] CBC W Auto Differential pane l (Bld)Ordered By: Eh Alves on 07-30-2024 Basophils (Bld) [#/Vol] 0 10*3/uL 0.0 - 0.2 10*3/uL [facility] Basophils/100 WBC (Bld) 0.4 % 0.0 - 2.0 % [facility] Eosinophils (Bld) [#/Vol] 0.2 10*3/uL 0.0 - 0.5 10*3/uL [facility] Eosinophils/100 WBC (Bld) 2.7 % 0.0 - 6.0 % [facility] Erythrocyte distribution width (RBC) [Ratio] 13.4 % 11.5 - 15.0 % [facility] Hematocrit (Bld) [Volume fraction] 37 % 35.0 - 47.0 % [facility] Hemoglobin (Bld) [Mass/Vol] 11.2 g/dL Low 11.7 - 16.0 g/dL [facility] Immature granulocytes (Bld) [#/Vol] 0 10*3/uL NINF - 0.1 10*3/uL [facility] Immature granulocytes/100 WBC (Bld) 0.3 % 0.0 - 2.0 % [facility] Interpretation and review of laboratory results Abnormal [facility] Lymphocytes (Bld) [#/Vol] 1 10*3/uL 1.0 - 4.3 10*3/uL [facility] Lymphocytes/100 WBC (Bld) 10.7 % Low 15.0 - 45.0 % [facility] MCH (RBC) [Entitic mass] 31.3 pg 26. 0 - 34.0 pg [facility] MCHC (RBC) [Mass/Vol] 30.3 % Low 30.5 - 36.0 % [facility] MCV (RBC) [Entitic vol] 103.4 fL High 77.0 - 99.0 fL [facility] Monocytes (Bld) [#/Vol] 0.5 10*3/uL 0.0 - 0.9 10*3/uL [facility] Monocytes/100 WBC (Bld) 5.5 % 5.0 - 13.0 % [facility] Neutrophils (Bld) [#/Vol] 7.2 10*3/uL 1.8 - 7.5 10*3/uL [facility] Neutrophils/100 WBC (Bld) 80.4 % 38.0 - 82.0 % [facility] Nucleated RBC/100 WBC (Bld) [Ratio] 0 % [facility] Platelet mean volume (Bld) [Entitic vol] 9.5 fL 9.0 - 12.7 fL [facility] [employer] Platelets (Bld) [#/Vol] 225 10*3/uL 140 - 440 10*3/uL [facility] RBC (Bld) [#/Vol] 3.58 10*6/uL Low 3.80 - 5.2 0 10*6/uL [facility] WBC (Bld) [#/Vol] 8.9 10*3/uL 3.6 - 10.7 10*3/uL [facility] CBC WITH AUTO DIFFERENTIALon 07-30-2024 Basophils (Bld) [#/Vol] 0.0 10*3/uL Normal 0.0-0.[address] [facility] Comment on above: Performed By: #### L [id number] ####Qa Automation Architect: HANS PAULSON ([id number])[facility] ([facility])[address] Basophils/100 WBC (Bld) 0.4 % Normal 0.0-2.0 [facility] Comment on above: Performed By: #### L [id number] ####Qa Automation Architect: HANS PAULSON ([id number])[facility] ([facility])[address] Eosinophils (Bld) [#/Vol] 0.2 10*3/uL Normal 0.0-0.[address] [facility] Comment on above: Performed By: #### L [id number] ####Qa Automation Architect: HANS PAULSON ([id number])[facility] ([facility])[address] [place] [address] Eosinophils/100 WBC (Bld) 2.7 % Normal 0.0-6.[address] [facility] Comment on above: Performed By: #### L [id number] ####Qa Automation Architect: HANS PAULSON ([id number])[facility] ([facility])[address] Erythrocyte distribution width (RBC) [Ratio] 13.4 % Normal 11.5-15.[address] [facility] Comment on above: Performed By: #### L [id number] ####Qa Automation Architect: HANS PAULSON ([id number])[facility] ([facility])[address] Hematocrit (Bld) [Volume fraction] 37.0 % Normal 35.0-47.[address] [facility] Comment on above: Performed By: #### L [id number] ####Qa Automation Architect: HANS PAULSON ([id number])[facility] ([facility])[address] Hemoglobin (Bld) [Mass/Vol] 11.2 g/dL Low 11.7-16.[address] [facility] Comment on above: Performed By: #### L [id number] ####Qa Automation Architect: HANS PAULSON ([id number])[facility] ([facility])[address] IMMATURE GRANS % 0.3 % Normal 0.0-2.0 [facility] Comment on above: Performed By: #### L [id number] ####Qa Automation Architect: HANS PAULSON ([id number])[facility] ([facility])[address] IMMATURE GRANS ABSOLUTE 0.0 10*3/uL Normal <0.[address] [facility] Comment on above: Performed By: #### L [id number] ####Qa Automation Architect: HANS PAULSON ([id number])[facility] ([facility])[address] [place] [address] Lymphocytes (Bld) [#/Vol] 1.0 10*3/uL Normal 1.0-4.[address] [facility] Comment on above: Performed By: #### L [id number] ####Qa Automation Architect: HANS PAULSON ([id number])[facility] ([facility])[address] Lymphocytes/100 WBC (Bld) 10.7 % Low 15.0-45.[address] [facility] Comment on above: Performed By: #### L [id number] ####Qa Automation Architect: HANS PAULSON ([id number])[facility] ([facility])[address] MCH (RBC) [Entitic mass] 31.3 pg Normal 26.0-34.0 [facility] Comment on above: Performed By: #### L [id number] ####Qa Automation Architect: HANS PAULSON ([id number])[facility] ([facility])[address] MCHC 30.3 % Low 30.5-36.0 [facility] Comment on above: Performed By: #### L [id number] ####Qa Automation Architect: HANS PAULSON ([id number])[facility] ([facility])[address] MCV (RBC) [Entitic vol] 103.4 fL High 77.0-99.0 [facility] Comment on above: Performed By: #### L [id number] ####Qa Automation Architect: HANS PAULSON ([id number])[facility] ([facility])[address] Monocytes (Bld) [#/Vol] 0.5 10*3/uL Normal 0.0-0.9 [facility] Comment on above: Performed By: #### L [id number] ####Qa Automation Architect: HANS PAULSON ([id number])[facility] ([facility])[address] Monocytes/100 WBC (Bld) 5.5 % Normal 5.0-13.0 [facility] Comment on above: Performed By: #### L [id number] ####Qa Automation Architect: HANS PAULSON ([id number])[facility] ([facility])[address] NEUTROPHILS ABSOLUTE 7.2 10*3/uL Normal 1.8-7.5 [facility] Comment on above: Performed By: #### L [id number] ####Qa Automation Architect: HANS PAULSON ([id number])[facility] ([facility])[address] Neutrophils/100 WBC (Bld) 80.4 % Normal 38.0-82.0 [facility] Comment on above: Performed By: #### L [id number] ####Qa Automation Architect: HANS PAULSON ([id number])[facility] ([facility])[address] NRBC 0.0 /100 WBCs Normal 0.0-2.0 [facility] Comment on above: Performed By: #### L [id number] ####Qa Automation Architect: HANS PAULSON ([id number])[facility] ([facility])[address] Platelet mean volume (Bld) [Entitic vol] 9.5 fL Normal 9.0-12.7 [facility] Comment on above: Performed By: #### L [id number] ####Qa Automation Architect: HANS PAULSON ([id number])[facility] ([facility])[address] Platelets (Bld) [#/Vol] 225 10*3/uL Normal 140-440 [facility] Comment on above: Performed By: #### L [id number] ####Qa Automation Architect: HANS PAULSON ([id number])[facility] ([facility])[address] RBC (Bld) [#/Vol] 3.58 10*6/uL Low 3.80-5.20 [facility] Comment on above: Performed By: #### L [id number] ####Qa Automation Architect: HANS PAULSON ([id number])[facility] ([facility])[address] [place] [address] [place] WBC (Bld) [#/Vol] 8.9 10*3/uL Normal 3.6-10.7 [facility] Comment on above: Performed By: #### L [id number] ####Qa Automation Architect: HANS PAULSON ([id number])[facility] ([facility])[address] DARIANOVanna 07-30-2024 CNOV Office Visit (FAMDNA ) GONZALO DELUCA ([id number]) 1955 F Date Time Provider Department 07/30/24 3:00 PM HERMINIA CASE During your visit today, we recorded the following information about you: Temperature Pulse Blood pressure Weight 98.4 degrees 106/minute 120/78 40.6 kg Height 1.641 m Herminia Case MD 07/30/2024 4:33 PM Signed 07/30/2024 Recording using [employer] software for draft documentation of the visit was discussed with the patient/authorized artists' booking representative; all questions welcomed and answered. Patient/authorized artists' booking representative agreed to proceed HPI: Gonzalo is [...] Diagnosis Date COPD (chronic obstructive pulmonary disease) ([facility]) DDD (degenerative disc disease), lumbar Encounter for [...] 2017 Years since quittin.3 Smokeless tobacco: Never Tobacco [...] Psychiatric: ( (more content not included)... Normal [facility] COMPLETE URINALYSIS WITH REF FAMILIA TO CULTURE 07-30-2024 AMORPHOUS CRYSTALS (#/HPF) IN URINE Many Abnormal Negative [facility] Comment on above: Performed By: #### L [id number] ####Qa Automation Architect: HANS PAULSON ([id number])[facility] [place] [address] BACTERIA (#/HPF) IN URINE Negative Normal Negative [facility] Comment on above: Performed By: #### L [id number] ####Qa Automation Architect: HANS PAULSON ([id number])[facility] ([facility])[address] [place] [address] [place] BILIRUBIN, TOTAL PRESENCE IN URINE Negative Normal Negative [facility] Comment on above: Performed By: #### L [id number] ####Qa Automation Architect: HANS PAULSON ([id number])[facility] ([facility])[address] Clarity (U) Turbid Abnormal Clear [facility] Comment on above: Performed By: #### L [id number] ####Qa Automation Architect: HANS PAULSON ([id number])[facility] (SB[facility])[address] Color (U) Yellow Normal Lt. Yellow [facility] Comment on above: Performed By: #### L [id number] ####Qa Automation Architect: HANS PAULSON ([id number])[facility] (SBHLAB)[address] GLUCOSE (MG/DL) IN URINE Normal Normal Normal (<70 ) [facility] Comment on above: Performed By: #### L [id number] ####Qa Automation Architect: HANS PAULSON ([id number])[facility] [place] [address] HEMOGLOBIN PRESENCE IN URINE Negative Normal Negative [facility] Comment on above: Performed By: #### L [id number] ####Qa Automation Architect: HANS PAULSON ([id number])[facility] [place] [address] HYALINE CASTS (#/LPF) IN URINE SEDIMENT BY MICROSCOPY 0-2 Abnormal Negative [facility] Comment on above: Performed By: #### L [id number] ####Qa Automation Architect: HANS PAULSON ([id number])[facility] Ketones Ql (U) Negative Normal Negative [facility] Comment on above: Performed By: #### L [id number] ####Qa Automation Architect: HANS PAULSON ([id number])[facility] (SBHLAB)[address] [place] [address] LEUKOCYTE ESTERASE PRESENCE IN URINE BY TEST STRIP 25 Sandra/uL Abnormal Negative [facility] Comment on above: Performed By: #### L [id number] ####Qa Automation Architect: HANS PAULSON ([id number])[facility] [place] (SBHLAB)[address] [place] [address] [place] MUCUS (#/LPF) IN URINE SEDIMENT Few Normal Negative [facility] Comment on above: Performed By: #### L [id number] ####Qa Automation Architect: HANS PALUSON ([id number])[facility] BRANCHDZILTH-NA[facility]DITH-HLE HEALTH CENTERRaimundo (SBHLAB)[address] NITRITE PRESENCE IN URINE Negative Normal Negative [facility] Comment on above: Performed By: #### L [id number] ####Qa Automation Architect: HANS PAULSON ([id number])[facility] (SBHLAB)[address] pH (U) 7.5 [pH] Normal 5.0-8.0 [facility] Comment on above: Performed By: #### L [id number] ####Qa Automation Architect: HANS PAULSON ([id number])[facility] (SBHLAB)[address] Protein (U) [Mass/Vol] 10 mg/dL Abnormal Negative [facility] Comment on above: Performed By: #### L [id number] ####Qa Automation Architect: HANS PAULSON ([id number])[facility] [place] [address] RBC (#/HPF) IN URINE SEDIMENT 0-2 Normal 0-2 [facility] Comment on above: Performed By: #### L [id number] ####Qa Automation Architect: HANS PAULSON ([id number])[facility] [place] [address] Specific gravity (U) [Rel density] 1.023 Normal 1.005-1.030 [facility] Comment on above: Result Comment: KYM Gilmore COMMENTS:A specimen with <=10 WBC is not consistent with inflammation. This specimen will not reflex to a urine culture. Performed By: #### L [id number] ####Qa Automation Architect: HANS PAULSON ([id number])[facility] [place] (SBAB)[address] SQUAMOUS EPITHELIAL CELLS (#/HPF) IN URINE SEDIMENT 0-2 Normal 3-5 [facility] Comment on above: Performed By: #### L [id number] ####Qa Automation Architect: HANS PAULSON ([id number])[facility] (SBHLAB)[address] UROBILINOGEN (MG/DL) IN URINE Normal Normal Normal (0-1) [facility] Comment on above: Performed By: #### L [id number] ####Qa Automation Architect: HANS PAULSON ([id number])[facility]ALTHNoram [facility]) HOSPITALRaimundo (SBHLAB)[address] [place] [address] WBC (LEUKOCYTE) (#/HPF) IN URINE SEDIMENT 3-5 Normal 0-5 [facility] Comment on above: Performed By: #### L [id number] ####Qa Automation Architect: HANS PAULSON ([id number])[facility] (SBHLAB)[address] [place] [address] Cobalamin (Vitamin B12) [Mas s/Vol]on 07-30-2024 Interpretation and review of laboratory results Normal [facility] ECG 12-LEADon 07-30-2024 ECG 12-LEAD IMPRESSION: Sinus rhythm Left axis deviation Electronically Signed On 07-30-2024 21:23:27 EDT by Evelio Sterling Normal [facility] ED Provider Noteon ED Provider Note Normal [facility] FOLATEon 07-30-2024 FOLATE RESULT 5.2 ng/mL Low 7.0-31.4 [facility] Comment on above: Performed By: #### L AB69, LAB15, XCU087, LAB99, LAB67, CAZ940, LAB20, SHB844, [id number] ####Qa Automation Architect: HANS PAULSON ([id number])[facility] (SBHLAB)[address] [place] [address] Folate [Mass/Vol]on 07-31-19 Interpretation and review of laboratory results Abnormal [facility] HEPATIC FUNCTION PANELon Albumin [Mass/Vol] 3.0 g/dL Low 3.4-4.8 [facility] Comment on above: Performed By: #### L AB69, LAB15, LFN087, LAB99, LAB67, ESD890, LAB20, [id number], [id number] ####Qa Automation Architect: HANS PAULSON ([id number])[facility] MAKAYLAENCOM[facility] (SBHLAB)[address] ALP [Catalytic activity/Vol] 97 U/L Normal 40-150 [facility] Comment on above: Performed By: #### L AB69, LAB15, XQX269, LAB99, LAB67, FHO428, LAB20, ERJ849, [id number] ####Qa Automation Architect: HANS PAULSON ([id number])[facility] (SBHLAB)[address] [place] [address] ALT [Catalytic activity/Vol] 10 U/L Normal <30 [facility] Comment on above: Performed By: #### L AB69, LAB15, GOS188, LAB99, LAB67, AMK279, LAB20, ALO927, [id number] ####Qa Automation Architect: HANS PAULSON ([id number])[facility] (SBHLAB)[address] [place] [address] AST [Catalytic activity/Vol] 21 U/L Normal <34 [facility] Comment on above: Performed By: #### L AB69, LAB15, RDQ542, LAB99, LAB67, NZV725, LAB20, FOL347, [id number] ####Qa Automation Architect: HANS PAULSON ([id number])[facility] (SBHLAB)[address] [place] [address] [place] Bilirubin [Mass/Vol] 0.2 mg/dL Normal <1.2 [facility] Comment on above: Performed By: #### L AB69, LAB15, VRM499, LAB99, LAB67, GEU658, LAB20, MDL973, [id number] ####Qa Automation Architect: HANS PAULSON ([id number])[facility] (SBHLAB)[address] [place] [address] Bilirubin.indirect [Mass/Vol] 0.1 mg/dL Normal <0.5 [facility] Comment on above: Performed By: #### L AB69, LAB15, RJW750, LAB99, LAB67, LFN209, LAB20, GMS262, [id number] ####Qa Automation Architect: HANS PAULSON ([id number])[facility] (SBHLAB)[address] [place] [address] Protein [Mass/Vol] 6.5 g/dL Normal 6.4-8.3 [facility] Comment on above: Result Comment: Seru m protein values are higher than plasma values. Samples from recumbent persons are lower by up to 0.5 g/dL as compared to ambulatory persons. After 60 years values are lower by up to 0.2 g/dL. Performed By: #### L AB69, LAB15, QDG533, LAB99, LAB67, YRQ852, LAB20, EIG108, [id number] ####Qa Automation Architect: HANS PAULSON ([id number])[facility] (SBHLAB)[address] [place] [address] Hepatic function 2000 panelo n 07-30-2024 Albumin [Mass/Vol] 3 g/dL Low 3.4 - 4.8 g/dL [facility] ALP [Catalytic activity/Vol] 97 U/L 40 - 150 U/L [facility] ALT [Catalytic activity/Vol] 10 U/L NINF - 30 U/L [facility] AST [Catalytic activity/Vol] 21 U/L NINF - 34 U/L [facility] Bilirubin [Mass/Vol] 0.2 mg/dL NINF - 1.2 mg/dL [facility] Bilirubin.conjugated [Mass/Vol] 0.1 mg/dL [facility] 0.5 mg/dL [facility] Protein [Mass/Vol] 6.5 g/dL 6.4 - 8.3 g/dL [facility] Comment on above: Serum protein values are higher than plasma values. Samples from recumbent persons are lower by up to 0.5 g/dL as compared to ambulatory persons. After 60 years values are lower by up to 0.2 g/dL. LIPASEon 05-12-2025 Lipase [Catalytic activity/Vol] 18 U/L Normal <55 [facility] Comment on above: Performed By: #### L AB69, LAB15, UWC232, LAB99, LAB67, HLD227, LAB20, NFU713, [id number] ####Qa Automation Architect: HANS PAULSON ([id number])[facility] (SBAB)[address] Laboratory - Chemistry and C hemistry - challengeon 07-30-2024 Folate [Mass/Vol] 5.2 ng/mL Low 7.0 - 31.4 ng/mL [facility] [employer] Cobalamin (Vitamin B12) [Mass/Vol] 639 pg/mL 213 - 816 pg/mL [facility] Lipase [Catalytic activity/Vol] 18 U/L NINF - 55 U/L [facility] Magnesium [Mass/Vol] 1.9 mg/dL 1.6 - 2 .6 mg/dL [facility] MAGNESIUMon 07-30-2024 Magnesium [Mass/Vol] 1.9 mg/dL Normal 1.6-2.6 [facility] Comment on above: Result Comment: KYM Gilmore COMMENTS:Higher values can be expected in females during menses. Performed By: #### L AB69, LAB15, MCW260, LAB99, LAB67, LOI301, LAB20, NPA322, [id number] ####Qa Automation Architect: HANS PAULSON ([id number])[facility] (HLAB)[address] Magnesium [Mass/Vol]on 07-30 Higher values can be expected in females during menses. [facility] [employer] No Panel InformationOrdered By: Evelio Sterling on 07-30-2024 P Momence 53 degrees [employer] Work Phone: MS Interval 137 ms [facility] [employer] Work Phone: QRS Momence -35 degrees [employer] Work Phone: QRSD Interval 99 ms [facility] [employer] Work Phone: QT Interval 350 ms [facility] [employer] Work Phone: QTC Interval 439 ms [employer] Work Phone: T Wave Momence 43 degrees [employer] Work Phone: [employer] Work Phone: No Panel Informationon 07-30 Sinus rhythm Left axis deviation Electronically Signed On 07-30-2024 21:23:27 EDT by Evelio Reyez DO - 07/30/2024 IMPRESSION: Sinus rhythm Left axis deviation Electronically Signed On 07-30-2024 21:23:27 EDT by Evelio Sterling [facility] [employer] Interpretation and review of laboratory results Abnormal [facility] [employer] Interpretation and review of laboratory results Normal [facility] [employer] [facility] Luis E Keating DO 07/30/2024 9:53 PM Splint Application Performed by: Luis E Keating DO Authorized by: Luis E Keating DO Consent: Consent obtained: Verbal Consent given by: Patient Risks, benefits, and alternatives were discussed: yes Risks discussed: Pain, numbness and swelling Alternatives discussed: Delayed treatment and referral Piffard protocol: Patient identity confirmed: Verbally with patient [...] no immediate complications Post-procedure imaging: not applicable [facility] [employer] [facility] [employer] PROCALCITONIN TESTon 025 PROCALCITONIN 0.03 ng/mL Normal <0.07 [facility] [employer] [facility] Comment on above: Result Comment: KYM Gilmore COMMENTS:PCT <0.50 = Low risk of severe sepsis and/or septic shock.PCT >2.00 = High risk of severe sepsis and/or septic shock. Performed By: #### L AB69, LAB15, ACW354, LAB99, LAB67, EPT865, LAB20, HRU382, [id number] ####Qa Automation Architect: HANS PAULSON ([id number])[facility] (SBHLAB)[address] THYROID STIMULATING HORMONEo n 07-30-2024 THYROID STIMULATING HORMONE 0.28 uIU/mL Low 0.35-4.94 [facility] Comment on above: Performed By: #### L AB69, LAB15, CNF965, LAB99, LAB67, UUO105, LAB20, QXX034, [id number] ####Qa Automation Architect: HANS PAULSON ([id number])[facility] (SBHLAB)[address] Urinalysis complete panel (U )on 07-30-2024 Amorphous Crystals, Urine Many Abnormal Negative /HPF [facility] Bacteria LM.HPF (Urine sed) [#/Area] Negative Negative /HPF [facility] Bilirubin Ql (U) Negative Negative mg/dL [facility] Clarity (U) Turbid Abnormal Clear [facility] Color (U) Yellow Lt. Yellow [facility] Epithelial cells.squamous LM.HPF (Urine sed) [#/Area] 0-2 [facility] h Glucose Ql (U) Normal Normal (<70) mg/dL [facility] Hemoglobin Ql (U) Negative Negative mg/dL [facility] Hyaline casts Auto (Urine sed) [#/Area] 0-2 Abnormal Negative /LPF [facility] Interpretation and review of laboratory results Abnormal [facility] Ketones (U) [Mass/Vol] Negative Negat kenton mg/dL [facility] Leukocyte esterase Test strip Ql (U) 25 Abnormal Negative Sandra/uL [facility] Mucus LM.HPF (Urine sed) [#/Area] Few Negative /LPF [facility] Nitrite Ql (U) Negative Negative [facility] th pH (U) 7.5 [pH] 5.0 - 8.0 pH [facility] Protein (U) [Mass/Vol] 10 mg/dL Abnormal Negative [facility] RBC LM.HPF (Urine sed) [#/Area] 0-2 [facility] Specific gravity (U) [Rel density] 1.023 1.005 - 1.030 [facility] Urobilinogen (U) [Mass/Vol] Normal Normal (0-1) mg/dL [facility] WBC LM.HPF (Urine sed) [#/Area] 3-5 [facility] A specimen with <=10 WBC is not consistent with inflammation. This specimen will not reflex to a urine culture. [facility] VITAMIN B12on 07-30-2024 Cobalamin (Vitamin B12) [Mass/Vol] 639 pg/mL Normal 213-816 [facility] Comment on above: Performed By: #### L AB69, LAB15, GYA592, LAB99, LAB67, XHJ475, LAB20, TAU749, [id number] ####Qa Automation Architect: HANS PAULSON ([id number])[facility] (SBHLAB)[address] [place] [address] Vital signsOrdered By: Evelio Sterling on 07-30-2024 Heart rate 95 /min bpm [facility] [employer] Work Phone: XR Chest Single viewon 07-30 No acute cardiopulmonary abnormality identified. Chronic appearing lung changes. Report Dictated on Electronically Signed By: Honorio Andino MD Electronically Signed Date/Time: 07/30/2024 5:42 PM EDT [facility] [employer] [facility] Patient Name: GONZALO DELUCA : 1955 [...] Electronically Signed Date/Time: 07/30/2024 5:42 PM EDT [facility] Radiology Study observation (narrative) [facility] He alth XR Elbow - left 2 [...] bones are osteopenic. No radiopaque foreign body. [facility] Honorio Andino MD - 07/30/2024 Patient Name: [facility]ONZALO DELUCA : 1955 [id number] Exam Date/Time: 07/30/2024 17:32 Procedure: XR ELBOW [...] Date/Time: 07/30/2024 5:46 PM EDT [facility] Radiology Study observation (narrative) Abe paz XR Elbow - left 2 ViewsOrder ed By: Honorio Andino on 07-30-2024 [facility] Work Phone: Progress Noteon 07-24-2024 Progress Note Call placed to patient, no show for port flush appointment today. LVM to return call to get rescheduled. Normal [facility] CNPNon 06-30-2024 CNPN Telephone (FAMDNA) GONZALO DELUCA ([id number]) 1955 F Date Time Provider Department 06/30/24 HERMINIA CASE During your visit today, we recorded the following information about you: Whit Shay LPN 06/30/2024 10:14 AM Signed Type of letter/form/fax request - Assisted living orders Form received from [facility] on 06/29/24 floor and placed on MD desk () for completion. Completed form needs to be faxed to [phone]. Route to [place] when form completed for processing Leona Castañeda APRN.[facility] 07/02/2024 2:33 PM Signed Orders signed and in outbox. Please fax. Thank you, Leona Castañeda APRN.[facility] Whit Shay LPN 07/02/2024 2:54 PM Signed Request completed and faxed. Allergies As of Date: 06/30/2024 Noted Allergy Reaction SEASONAL ALLERGIES 08/16/2017 5 - Intolerance Date Reviewed: 12/30/2023 Reviewed by: Joaquina Martinez APRN.[facility] - Fully Assessed Reason for Visit: Orders [...] Encounter Status:Closed by WHIT SHAY on 07/02/24 [facility] Helen 06-07-2024 CNPN Telephone (HCSIND) MARIA EGONZALO LEBLANC ([id number]) 1955 F Date Time Provider Department 06/07/24 [...] Valero LPN 06/08/2024 9:25 AM Signed Herminia Caes MD Thank you for the referral. Our first available date for a therapy start of care is 06/11/24. Please let us know if this is acceptable for you and the patient. Thank you , KAMILAH Subramanian Laura, MD 06/08/2024 10:21 AM Signed Yes it is, thank you. Jessica Linn LPN 06/10/2024 8:38 AM Signed Herminia Case MD, [facility] received a referral for [facility] services. We have made several attempts to [...] Date Reviewed: 12/30/2023 Reviewed by: Joaquina Martinez APRN.[facility] - Fully Assessed Reason for Visit: Home [...] hysterectomy [Z90.710] (more content not included)... [facility] GON[facility]UCA ([id number]) 1955 F Date Time Provider Department 06/07/24 MADDI VALERO HCSIND During your visit today, we recorded the following information about you: Allergies As of Date: 06/07/2024 Noted Allergy Reaction SEASONAL ALLERGIES 08/16/2017 5 - Intolerance Date Reviewed: 12/30/2023 Reviewed by: Joaquina Martinez APRN.[facility] - Fully Assessed Reason for Visit: Home [...] Encounter Status:Closed by MADDI VALERO on 06/07/24 [facility] Helen 06-06-2024 ANUEL Telephone (HCSIND) GONZALO DELUCA ([id number]) 1955 F Date Time Provider Department 06/06/24 HERMINIA CASE During your visit today, we recorded the following information about you: Erna Diaz LPN 06/06/2024 1:02 PM Signed Herminia Case MD Thank you for the referral for Gonzalo Deluca to receive home care services through [facility]. At this time, the office note is [...] Date Reviewed: 12/30/2023 Reviewed by: Joaquina Martinez APRN.[employer] - Fully Assessed Reason for Visit: Home [...] 11/21/2019 Diagnosed: 03/11/2023 Poor venous access [I87.8] more content not included)... Normal [facility] 36on 06-05-2024 36 Pt called with christian padron to schedule appt with REHAB SERVICES AIDE. Made appt with pt being past due. Pt was supposed to be seen 05/14 for 6 month surveillance appt. Called [facility] and scheduled port flush for 06/12/24 at 2:00 pm. Normal [facility] 36 Patient called to obtain an order for a port flush and/or removal. Patient not sure if she needs to make an appointment. Patient would like schedule in [place]. Verified contact number for patient is correct. Normal [facility] Basic metabolic 1998 panelon 04-28-2024 Anion gap [Moles/Vol] 8 mmol/L 3 - 13 mmol/L [facility] Calcium [Mass/Vol] 9.1 mg/dL 8.8 - 10. 0 mg/dL [facility] Chloride [Moles/Vol] 102 mmol/L 98 - 10 7 mmol/L [facility] CO2 [Moles/Vol] 33 mmol/L High 23 - 31 mmol/L [facility] Creatinine [Mass/Vol] 0.78 mg/dL 0.57 - 1.11 mg/dL [facility] GFR/1.73 sq M.predicted (S/P/Bld) [Vol rate/Area] 83.4 mL/min - PINF [facility] Comment on above: Calculation based on the Chronic Kidney Disease Epidemiology Collaboration (CKD-EPI) equation refit without adjustment for race Glucose [Mass/Vol] 179 mg/dL High 82 - 115 mg/dL [facility] Interpretation and review of laboratory results Abnormal [facility] Potassium [Moles/Vol] 3.6 mmol/L 3.5 - 5.1 mmol/L [facility] Comment on above: Plasma potassium martín ues may be up to 0.5 mmol/L lower than serum values. Sodium [Moles/Vol] 143 mmol/L 136 - 145 mmol/L [facility] Urea nitrogen [Mass/Vol] 13 mg/dL 9 - 23 mg/d L [facility] CBC W Auto Differential pane l (Bld)Ordered By: Hakeem Cruz on 04-28-2024 Basophils (Bld) [#/Vol] 0 10*3/uL 0.0 - 0.2 10*3/uL [facility] Basophils/100 WBC (Bld) 0.6 % 0.0 - 2.0 % [facility] Eosinophils (Bld) [#/Vol] 0.3 10*3/uL 0.0 - 0.5 10*3/uL [facility] Eosinophils/100 WBC (Bld) 4 % 0.0 - 6.0 % [facility] Erythrocyte distribution width (RBC) [Ratio] 13.2 % 11.5 - 15.0 % [facility] Hematocrit (Bld) [Volume fraction] 37.3 % 35.0 - 47.0 % [facility] Hemoglobin (Bld) [Mass/Vol] 11.5 g/dL Low 11.7 - 16.0 g/dL [facility] Immature granulocytes (Bld) [#/Vol] 0 10*3/uL NINF - 0.1 10*3/uL [facility] Immature granulocytes/100 WBC (Bld) 0.5 % 0.0 - 2.0 % [facility] Interpretation and review of laboratory results Abnormal [facility] Lymphocytes (Bld) [#/Vol] 0.7 10*3/uL Low 1.0 - 4.3 10*3/uL [facility] Lymphocytes/100 WBC (Bld) 10.6 % Low 15.0 - 45.0 % [facility] MCH (RBC) [Entitic mass] 30.9 pg 26. 0 - 34.0 pg [facility] MCHC (RBC) [Mass/Vol] 30.8 % 30.5 - 36.0 % [facility] MCV (RBC) [Entitic vol] 100.3 fL High 77.0 - 99.0 fL [facility] Monocytes (Bld) [#/Vol] 0.4 10*3/uL 0.0 - 0.9 10*3/uL [facility] Monocytes/100 WBC (Bld) 6.5 % 5.0 - 13.0 % [facility] Neutrophils (Bld) [#/Vol] 5.1 10*3/uL 1.8 - 7.5 10*3/uL [facility] Neutrophils/100 WBC (Bld) 77.8 % 38.0 - 82.0 % [facility] Nucleated RBC/100 WBC (Bld) [Ratio] 0 % [facility] Platelet mean volume (Bld) [Entitic vol] 10 fL 9.0 - 12.7 fL [facility] Platelets (Bld) [#/Vol] 165 10*3/uL 140 - 440 10*3/uL [facility] RBC (Bld) [#/Vol] 3.72 10*6/uL Low 3.80 - 5.2 0 10*6/uL [facility] WBC (Bld) [#/Vol] 6.5 10*3/uL 3.6 - 10.7 10*3/uL [facility] CT CERVICAL SPINE WO IV CONT RASTon 04-28-2024 CT CERVICAL SPINE WO IV CONTRAST Normal [facility] CT Cervical spine WO contras ton [...] the paranasal sinuses shows no air-fluid levels. [facility] Rmases Gamble MD - 04/28/2024 Patient Name: GONZALO [...] Date/Time: 04/28/2024 12:50 AM EST [facility] Radiology Study observation (narrative) [facility] Maxi alth CT HEAD WO IV CONTRASTon CT HEAD WO IV CONTRAST Normal [facility] CT Head WO contraston 2024 Patient Name: GONZALO DELUCA : 1955 Exam Date/Time: 04/28/2024 00:12 Procedure: CT HEAD [...] the paranasal sinuses shows no air-fluid levels. [facility] Ramses Gamble MD - 04/28/2024 Patient Name: GONZALO DELUCA : 1955 Exam Date/Time: 04/28/2024 00:12 Procedure: CT HEAD [...] Date/Time: 04/28/2024 12:50 AM EST [facility] Radiology Study observation (narrative) [facility] Maxi jackson ECG 12-LEADon 04-28-2024 ECG 12-LEAD IMPRESSION: Sinus rhythm with normal rate, intervals and QRS duration. No acute ischemic changes. Inferior Q waves, old Electronically Signed On 04-28-2024 14:40:42 EST by Freddy Ibarra Normal [facility] Laboratory - Chemistry and C hemistry - challengeon 04-28-2024 Magnesium [Mass/Vol] 2 mg/dL 1.6 - 2 .6 mg/dL [facility] [facility] Magnesium [Mass/Vol]on 04-28 Interpretation and review of laboratory results Normal [facility] Higher values can be expected in females during menses. [facility] No Panel Informationon 04-28 Impression: No [...] MD Electronically Signed Date/Time: 04/28/2024 12:50 AM [facility] Retention Education Interpretation and review of laboratory results Normal [facility] Troponin HS Serial Baseline 4 ng/L NINF - 14 ng/L [facility] Comment on above: In individuals prese nting with symptoms > 2h, a baseline troponin <= 5 ng/L suggests acute cardiac injury is unlikely and further serial testing is generally not indicated. [employer] XR Elbow - left 3 Viewson Findings and impression: Left elbow three views performed. Bone density is normal. No fracture or dislocation seen. Report Dictated on Electronically Signed By: Ramses Gamble MD Electronically Signed Date/Time: 04/28/2024 12:23 AM [facility] [employer] Patient Name: GONZALO DELUCA : 1955 Exam Date/Time: 04/28/2024 00:01 Procedure: XR ELBOW 3+ VIEWS LEFT Ordering Provider: ALTAMIRANO JEFFREY Reason For Exam: Elbow trauma Indication: Elbow trauma. [facility] Ramses Gamble MD - 04/28/2024 Patient Name: [...] Date/Time: 04/28/2024 12:23 AM EST [facility] Radiology Study observation [facility]narrative) [facility] Elbow - left 3 ViewsOrder ed By: Ramses Gamble on 04-28-2024 [facility] Work Phone: BASIC METABOLIC PANELon 02-0 Anion gap [Moles/Vol] 8 mmol/L Normal 3-13 [facility] Comment on above: Performed By: #### Arsenio AB103, LAB15, [id number] ####[employer]a Automation Architect: HANS PAULSON ([id number])[facility] ([facility])[address] [place] [address] Calcium [Mass/Vol] 9.1 mg/dL Normal 8.8-10.0 [facility] Comment on above: Performed By: #### Arsenio ESPINOSA103, LAB15, [id number] ####Qa Automation Architect: HANS PAULSON ([id number])[facility] ([facility])[address] [place] [address] Chloride [Moles/Vol] 102 mmol/L Normal 98-107 [facility] Comment on above: Performed By: #### Arsenio AB103, LAB15, [id number] ####Qa Automation Architect: HANS PAULSON ([id number])[facility] ([facility])[address] [place] [address] CO2 [Moles/Vol] 33 mmol/L High 23-31 [facility] Comment on above: Performed By: #### Arsenio AB103, LAB15, [id number] ####Qa Automation Architect: HANS PAULSON ([id number])[facility] ([facility])[address] Creatinine [Mass/Vol] 0.78 mg/dL Normal 0.57-1.11 [facility] Comment on above: Performed By: #### Arsenio AB103, LAB15, [id number] ####Qa Automation Architect: HANS PAULSON ([id number])[facility] ([facility])[address] GLOMERULAR FILTRATION RATE ML/MIN/1.73 SQ M.PREDICTED 83.4 mL/min/1.73m*2 Normal >60.0 [facility] Comment on above: Result Comment: Calc ulation based on the Chronic Kidney Disease Epidemiology Collaboration (CKD-EPI) equation refit without adjustment for race Performed By: #### Arsenio AB103, LAB15, [id number] ####Qa Automation Architect: HANS PAULSON ([id number])[facility] ([facility])[address] Glucose [Mass/Vol] 179 mg/dL High 82-115 [facility] Comment on above: Performed By: #### Arsenio AB103, LAB15, [id number] ####Qa Automation Architect: HANS PAULSON ([id number])[facility] ([facility])[address] Potassium [Moles/Vol] 3.6 mmol/L Normal 3.5-5.1 [facility] Comment on above: Result Comment: [facility] potassium values may be up to 0.5 mmol/L lower than serum values. Performed By: #### Arsenio AB103, LAB15, [id number] ####Qa Automation Architect: HANS PAULSON ([id number])[facility] ([facility])[address] [place] [address] [place] Sodium [Moles/Vol] 143 mmol/L Normal 136-145 [facility] Comment on above: Performed By: #### L AB103, LAB15, [id number] ####Qa Automation Architect: HANS PAULSON ([id number])[facility] ([facility])[address] Urea nitrogen [Mass/Vol] 13 mg/dL Normal 9-23 [facility] Comment on above: Performed By: #### L AB103, LAB15, [id number] ####Qa Automation Architect: HANS PAULSON ([id number])[facility] (SBHL[facility])[address] CBC WITH AUTO DIFFERENTIALon 04-27-2024 Basophils (Bld) [#/Vol] 0.0 10*3/uL Normal 0.0-0.[address] [facility] Comment on above: Performed By: #### L [id number] ####Qa Automation Architect: HANS PAULSON ([id number])[facility] ([facility]HL[facility])[address] Basophils/100 WBC (Bld) 0.6 % Normal 0.0-2.0 [facility] Comment on above: Performed By: #### L [id number] ####Qa Automation Architect: HANS PAULSON ([id number])[facility] ([facility])[address] [place] [address] Eosinophils (Bld) [#/Vol] 0.3 10*3/uL Normal 0.0-0.[address] [facility] Comment on above: Performed By: #### L [id number] ####Qa Automation Architect: HANS PAULSON ([id number])[facility] ([facility])[address] Eosinophils/100 WBC (Bld) 4.0 % Normal 0.0-6.[address] [facility] Comment on above: Performed By: #### L [id number] ####Qa Automation Architect: HANS PAULSON ([id number])[facility] ([facility])[address] Erythrocyte distribution width (RBC) [Ratio] 13.2 % Normal 11.5-15.[address] [facility] Comment on above: Performed By: #### L [id number] ####Qa Automation Architect: HANS PAULSON ([id number])[facility] ([facility])[address] [place] [address] Hematocrit (Bld) [Volume fraction] 37.3 % Normal 35.0-47.[address] [facility] Comment on above: Performed By: #### L [id number] ####Qa Automation Architect: HANSRONALD WALDROPKimESCOBAR ([id number])[facility]IL[facility] (SBHLAB)[address] Hemoglobin (Bld) [Mass/Vol] 11.5 g/dL Low 11.7-16.[address] [facility] Comment on above: Performed By: #### L [id number] ####Qa Automation Architect: HNAS LORENE ([id number])[facility] ([facility])[address] IMMATURE GRANS % 0.5 % Normal 0.0-2.0 [facility] Comment on above: Performed By: #### L [id number] ####Qa Automation Architect: HANS PAULSON ([id number])[facility] [place] [address] IMMATURE GRANS ABSOLUTE 0.0 10*3/uL Normal <0.[address] [facility] Comment on above: Performed By: #### L [id number] ####Qa Automation Architect: HANS LORENE ([id number])[facility] Lymphocytes (Bld) [#/Vol] 0.7 10*3/uL Low 1.0-4.[address] [facility] Comment on above: Performed By: #### L [id number] ####Qa Automation Architect: HANS WALDROPKimESCOBAR ([id number])[facility] Lymphocytes/100 WBC (Bld) 10.6 % Low 15.0-45.[address] [facility] Comment on above: Performed By: #### L [id number] ####Qa Automation Architect: HANS LORENE ([id number])[facility] MCH (RBC) [Entitic mass] 30.9 pg Normal 26.0-34.[address] [facility] Comment on above: Performed By: #### L [id number] ####Qa Automation Architect: HANS PAULSON ([id number])[facility] ([facility])[address] MCHC 30.8 % Normal 30.5-36.0 [facility] Comment on above: Performed By: #### L [id number] ####Qa Automation Architect: HANS ALCANTARESCOBAR ([id number])[facility] (SB[facility])[address] MCV (RBC) [Entitic vol] 100.3 fL High 77.0-99.0 [facility] Comment on above: Performed By: #### L [id number] ####Qa Automation Architect: HANS ALCANTARESCOBAR ([id number])[facility] [place] ([facility])[address] [place] [address] Monocytes (Bld) [#/Vol] 0.4 10*3/uL Normal 0.0-0.9 [facility] Comment on above: Performed By: #### L [id number] ####Qa Automation Architect: HANS ALCANTARESCOBAR ([id number])[facility] [place] ([facility])[address] Monocytes/100 WBC (Bld) 6.5 % Normal 5.0-13.0 [facility] Comment on above: Performed By: #### L [id number] ####Qa Automation Architect: HANS PAULSON ([id number])[facility] [place] ([facility])[address] NEUTROPHILS ABSOLUTE 5.1 10*3/uL Normal 1.8-7.5 [facility] Comment on above: Performed By: #### L [id number] ####Qa Automation Architect: HANS PAULSON ([id number])[facility] ([facility])[address] Neutrophils/100 WBC (Bld) 77.8 % Normal 38.0-82.[address] [facility] Comment on above: Performed By: #### L [id number] ####Qa Automation Architect: HANSRONALD PAULSON ([id number])[facility] ([facility])[address] NRBC 0.0 /100 WBCs Normal 0.0-2.0 [facility] Comment on above: Performed By: #### L [id number] ####Qa Automation Architect: HANS PAULSON ([id number])[facility] ([facility])[address] Platelet mean volume (Bld) [Entitic vol] 10.0 fL Normal 9.0-12.7 [facility] Comment on above: Performed By: #### L [id number] ####Qa Automation Architect: HANS PAULSON ([id number])[facility] (SBHL[facility])[address] Platelets (Bld) [#/Vol] 165 10*3/uL Normal 140-[address] [facility] Comment on above: Performed By: #### L [id number] ####Qa Automation Architect: HANS LORENE ([id number])[facility] ([facility])[address] RBC (Bld) [#/Vol] 3.72 10*6/uL Low 3.80-5.[address] [facility] Comment on above: Performed By: #### L [id number] ####Qa Automation Architect: HANS LORENE ([id number])[facility] ([facility])[address] WBC (Bld) [#/Vol] 6.5 10*3/uL Normal 3.6-10.[address] [facility] Comment on above: Performed By: #### L [id number] ####Qa Automation Architect: HANS LORENE ([id number])[facility] ([facility])[address] ED Nursing Noteon 04-27-2024 ED Nursing Note Per ems, fall on carpeted floor. _ LOC but pt states she was dizzy and weak prior to fall. C/o L elbow and nose pain 2ndary fall Normal [facility] ED Provider Noteon ED Provider Note Normal [facility] HIGH SENSITIVITY TROPONIN, S ERIAL BASELINEon 04-27-2024 TROPONIN HS SERIAL BASELINE 4 ng/L Normal <=14 [facility] Comment on above: Result Comment: In i ndividuals presenting with symptoms > 2h, a baseline troponin <= 5 ng/L suggests acutecardiac injury is unlikely and further serial testing is generally not indicated. Performed By: #### L AB103, LAB15, [id number] ####Qa Automation Architect: HANS PAULSON ([id number])[facility] ([facility])[address] [place] [address] MAGNESIUMon 04-27-2024 Magnesium [Mass/Vol] 2.0 mg/dL Normal 1.6-2.6 [facility] Comment on above: Result Comment: KYM R COMMENTS:Higher values can be expected in females during menses. Performed By: #### L AB103, LAB15, [id number] ####Qa Automation Architect: HANS PAULSON ([id number])[facility] ([facility])[address] [place] [address] CNPNon 03-01-2024 CNPN Telephone (FAMDNA) GONZALO DELUCA ([id number]) 1955 F Date Time Provider Department 03/01/24 [...] Date Reviewed: 12/30/2023 Reviewed by: Joaquina Martinez APRN.TONG SETTER - Fully Assessed Reason for Visit: Medication [...] Encounter Status:Closed by WHIT SHAY on 03/05/24 [facility] 12-27-2023 NADEEMN Telephone (ANALIA) GONZALO DELUCA ([id number]) 1955 F Date Time Provider Department 12/27/23 HERMINIA CASE During your visit today, we recorded the following information about you: Whit Shay LPN 12/27/2023 12:51 PM Signed Type of letter/form/fax request - Home Health Care Orders Form received from [facility] on 12/26/23 floor and placed on MD desk () for completion. Completed form needs to be faxed to [phone]. Route to [place] when form completed for processing Whit Shay [...] Encounter Status:Closed by WHIT SHAY on 12/27/23 [facility] ([id number]) 1955 F Date Time Provider Department 12/13/23 HERMINIA CASE During your visit today, we recorded the following information about you: Whit Shay LPN 12/13/2023 11:03 AM Signed Type of letter/form/fax request - Home Health Care Orders Form received from [facility] on 12/12/23 floor and placed on desk () for completion. Completed form needs to be faxed to [phone]. Route to [place] when form completed for processing Herminia Case [...] Encounter Status:Closed by WHIT SHAY on [facility]23 [facility] CNPN Telephone (FAMDNA) GONZALO DELUCA ([id number]) 1955 F Date Time Provider Department 12/06/23 HERMINIA CASE During your visit today, we recorded the following information about you: Whit Shay LPN 12/06/2023 1:40 PM Signed Type of letter/form/fax request - Home Health Care Orders Plan of Care Certification Period-11/25/23 to 01/23/24 Form received from [facility] on 12/01/23 floor and placed on desk () for completion. Completed form needs to be faxed to [phone]. Route to [place] when form completed for processing Herminia Case [...] Encounter Status:Closed by WHIT SHAY on 12/06/23 [facility] 11-14-2023 CNPN Telephone (FAMDNA) GONZALO DELUCA ([id number]) 1955 F Date Time Provider Department 11/14/23 HERMINIA CASE During your visit today, we recorded the following information about you: Whit Shay LPN 11/14/2023 11:47 AM Signed Type of letter/form/fax request - Home Health Care Orders Form received from [facility] on 11/13/23 floor and placed on MD desk () for completion. Completed form needs to be faxed to . Route to [place] when form completed for processing Herminia Case MD 11/14/2023 12:51 PM Signed Done. Whit Shay LPN 11/14/2023 1:59 PM Signed Request completed and faxed. Allergies As of Date: 11/14/2023 Noted Allergy Reaction SEASONAL ALLERGIES 08/16/2017 5 - Intolerance Date Reviewed: 09/08/2023 Reviewed by: Tate Weathers MA - Fully Assessed Reason for Visit: Orders [681] Prescriptions as of 11/14/2023 - mirtazapine (REMERON) [...] Encounter Status:Closed by WHIT SHAY on 11/14/23 [facility] 10-28-2023 CNPN Telephone (FAMDNA) GONZALO DELUCA ([id number]) 1955 F Date Time Provider Department 10/28/23 [facility] CASE [facility] During your visit today, we recorded the following information about you: Whit Shay LPN 10/28/2023 9:46 AM Signed Type of letter/form/fax request - Home Health Care Orders Form received from [facility] on 10/27/23 floor and placed on MD desk () for completion. Completed form needs to be faxed to [phone]. Route to [place] when form completed for processing Herminia Case [...] Encounter Status:Closed by WHIT SHAY on 10/28/23 [facility] 10-22-2023 ANUEL Telephone (4CQ) GONZALO DELUCA ([id number]) 1955 F Date Time Provider Department 10/22/23 GUANAKOTIMMYHERMINIA 4CQ During your visit today, we recorded the following information about you: Elsy Caro 10/22/2023 11:53 AM Signed [facility] called to report that patient cancelled [...] Encounter Status:Closed by MELVA JUÁREZ on 10/24/23 [facility] GONZALO DELUCA ([id number]) 1955 F Date Time Provider Department 10/18/23 HERMINIA CASE During your visit today, we recorded the following information about you: Whit Shay LPN 10/18/2023 3:01 PM Signed Type of letter/form/fax request - Home Health Care Orders Form received from [facility] on 10/18/23 floor and placed on MD desk () for completion. Completed form needs to be faxed to [phone]. Route to [place] when form completed for processing Whit Shay LPN 10/18/2023 3:53 PM Signed Request completed and [...] Status:Closed by WHIT SHAY on 10/18/23 Normal [facility] CT CHEST WO IV CONTRASTon CT CHEST WO IV CONTRAST Normal [facility] CT Chest WO contraston 10-15 1. [...] MD Electronically Signed Date/Time: 10/16/2023 9:11 PM [facility] Patient Name: [facility]ONZALO DEL[facility]CA [facility] 1955 [id number] Exam Date/Time: 10/16/2023 20:29 Procedure: CT CHEST [...] 10/16/2023 Patient Name: [facility]ONZALO DEL[facility]CA : 1955 [id number] Exam Date/Time: 10/16/2023 20:29 Procedure: CT CHEST [...] Date/Time: 10/16/2023 9:11 PM EDT [facility] Radiology Study observation (narrative) [facility] Chest WO contrastOrdered By: Roxie Kwon on 10-16-2023 [facility] Work Phone: ED Provider Noteon 4 ED Provider Note Normal [facility] XR Hip - left 3 [...] Electronically Signed Date/Time: 10/16/2023 8:46 PM EDT [facility] Patient Name: GONZALO DELUCA : 1955 Exam Date/Time: 10/16/2023 20:40 Procedure: XR HIP 2 OR 3 VW LEFT Ordering Provider: HARTLEY SAMANTHA Reason For Exam: L hip pain after fall LEFT HIP: CLINICAL INDICATION: Status post fall with left hip pain TECHNIQUE: AP view the pelvis, two views of the left hip. COMPARISON: 09/19/2023 [facility] Roxie Kwon [...] Electronically Signed Date/Time: 10/16/2023 8:46 PM EDT [facility] Radiology Study observation (narrative) Abe Cervantes 10-10-2023 NADEEMN Telephone (FAMDNA) GONZALO DELUCA ([id number]) 1955 F Date Time Provider Department 10/10/23 HERMINIA CASE During your visit today, we recorded the following information about you: Whit Shay LPN 10/10/2023 1:42 PM Signed Type of letter/form/fax request - Home Health Care Orders Form received from [facility] on 10/06/23 floor and placed on MD desk () for completion. Completed form needs to be faxed to [phone]. Route to [place] when form completed for processing Herminia Case [...] Encounter Status:Closed by WHIT SHAY on 10/11/23 [facility] CNPN Telephone (FAMDNA) GONZALO DELUCA ([id number]) 1955 F Date Time Provider Department 10/06/23 HERMINIA CASE During your visit today, we recorded the following information about you: Jessica Castro 10/06/2023 10:34 AM Signed [facility] is calling Herminia Case MD today to report patient's home health care physical therapy will be delayed a week as patient informed them that she is not feeling well.. Patient has been identified by name and birthdate. Duration of symptoms: N/A Person calling: caregiver: [facility] Call patient at: at home [phone] (home) [phone] (cell) Was an appointment scheduled: No Closing [...] Status:Closed by JOAQUINA MARTINEZ on 10/06/23 Normal [facility] CARECOORDon 09-26-2023 CARECOWAINSCOTT Patient Choice Patient Name: GONZALO DELUCA Date of : 1955 Normal [facility] BASIC METABOLIC PANELon 07-0 Anion gap [Moles/Vol] 10 mmol/L Normal 3-13 [facility] Comment on above: Performed By: #### L AB15 ####Qa Automation Architect: HANS PAULSON ([id number])[facility] ([facility])[address] [place] [address] Calcium [Mass/Vol] 8.9 mg/dL Normal 8.4-10.4 [facility] Comment on above: Performed By: #### L AB15 ####Qa Automation Architect: HANS PAULSON ([id number])[facility] ([facility])[address] [place] [address] Chloride [Moles/Vol] 100 mmol/L Normal 98-107 [facility] Comment on above: Performed By: #### L AB15 ####Qa Automation Architect: HANS PAULSON ([id number])[facility] ([facility])[address] [place] [address] CO2 [Moles/Vol] 30 mmol/L Normal 22-30 [facility] Comment on above: Performed By: #### L AB15 ####Qa Automation Architect: HANS PAULSON ([id number])[facility]ALTH[facility]a BRANCHDZILTH-NA-[facility]-HLE HEALTH CENTERRaimundo (SBHLAB)[address] Creatinine [Mass/Vol] 0.39 mg/dL Low 0.52-1.04 [facility] Comment on above: Performed By: #### L AB15 ####Qa Automation Architect: HANS PAULSON ([id number])[facility]ALTH[facility]a [facility]ITAL[facility] (SBHLAB)[address] GLOMERULAR FILTRATION RATE ML/MIN/1.73 SQ M.PREDICTED >90.0 Normal >60.0 [facility] Comment on above: Result Comment: Calc ulation based on the Chronic Kidney Disease Epidemiology Collaboration (CKD-EPI) equation refit without adjustment for race Performed By: #### L AB15 ####Qa Automation Architect: HASN PAULSON ([id number])[facility]ALTH[facility]PITALR[facility]undo (SBHLAB)[address] Glucose [Mass/Vol] 109 mg/dL High 70-100 [facility] Comment on above: Performed By: #### L AB15 ####Qa Automation Architect: HANS PAULSON ([id number])[facility] (HLAB)[address] Potassium [Moles/Vol] 4.2 mmol/L Normal 3.5-5.1 [facility] Comment on above: Performed By: #### L AB15 ####Qa Automation Architect: HANS PAULSON ([id number])[facility] BARBDZILTH-NA-[facility]-DITH-[facility] HEALTH CENTERN (SBHLAB)[address] [place] [address] [place] Sodium [Moles/Vol] 140 mmol/L Normal 135-145 [facility] Comment on above: Performed By: #### L AB15 ####Qa Automation Architect: HANS PAULSON ([id number])[facility] ([facility])[address] Urea nitrogen [Mass/Vol] 11 mg/dL Normal 7-17 [facility] Comment on above: Performed By: #### L AB15 ####Qa Automation Architect: HANS PAULSON ([id number])[facility] [place] (SBHLAB)[address] [place] [address] Basic metabolic 1998 panelon 09-22-2023 Anion gap [Moles/Vol] 10 mmol/L 3 - 13 mmol/L [facility] Calcium [Mass/Vol] 8.9 mg/dL 8.4 - 10. 4 mg/dL [facility] Chloride [Moles/Vol] 100 mmol/L 98 - 10 7 mmol/L [facility] CO2 [Moles/Vol] 30 mmol/L 22 - 30 mmol/L [facility] Creatinine [Mass/Vol] 0.39 mg/dL Low 0.52 - 1.04 mg/dL [facility] GFR/1.73 sq M.predicted MDRD (S/P/Bld) [Vol rate/Area] - PINF [facility] Comment on above: Calculation based on the Chronic Kidney Disease Epidemiology Collaboration (CKD-EPI) equation refit without adjustment for race Glucose [Mass/Vol] 109 mg/dL High 70 - 100 mg/dL [facility] Interpretation and review of laboratory results Abnormal [facility] Potassium [Moles/Vol] 4.2 mmol/L 3.5 - 5.1 mmol/L [facility] Sodium [Moles/Vol] 140 mmol/L 135 - 145 mmol/L [facility] Urea nitrogen [Mass/Vol] 11 mg/dL 7 - 17 mg/d L [facility] CARECOORDon 09-22-2023 CARECOWAINSCOTT Normal [facility] CBC W Auto Differential pane l (Bld)Ordered By: Rolando Shelton on 09-22-2023 Basophils (Bld) [#/Vol] 0.1 10*3/uL 0.0 - 0.2 10*3/uL [facility] Basophils/100 WBC (Bld) 0.5 % 0.0 - 2.0 % [facility] Eosinophils (Bld) [#/Vol] 0.1 10*3/uL 0.0 - 0.5 10*3/uL [facility] Eosinophils/100 WBC (Bld) 1.3 % 0.0 - 6.0 % [facility] Erythrocyte distribution width (RBC) [Ratio] 13.2 % 11.5 - 15.0 % [facility] Hematocrit (Bld) [Volume fraction] 37.5 % 35.0 - 47.0 % [facility] Hemoglobin (Bld) [Mass/Vol] 11.9 g/dL 11.7 - 16.0 g/dL [facility] Immature granulocytes (Bld) [#/Vol] 0.0 10*3/uL NINF - 0.1 10*3/uL [facility] Immature granulocytes/100 WBC (Bld) 0.3 % 0.0 - 2.0 % [facility] Interpretation and review of laboratory results Abnormal [facility] Lymphocytes (Bld) [#/Vol] 0.8 10*3/uL Low 1.0 - 4.3 10*3/uL [facility] Lymphocytes/100 WBC (Bld) 8.6 % Low 15.0 - 45.0 % [facility] MCH (RBC) [Entitic mass] 30.3 pg 26. 0 - 34.0 pg [facility] MCHC (RBC) [Mass/Vol] 31.7 % 30.5 - 36.0 % [facility] MCV (RBC) [Entitic vol] 95.4 fL 77.0 - 99.0 fL [facility] Monocytes (Bld) [#/Vol] 0.5 10*3/uL 0.0 - 0.9 10*3/uL [facility] Monocytes/100 WBC (Bld) 5.3 % 5.0 - 13.0 % [facility] Neutrophils (Bld) [#/Vol] 8.2 10*3/uL High 1.8 - 7.5 10*3/uL [facility] Neutrophils/100 WBC (Bld) 84.0 % High 38.0 - 82.0 % [facility] Nucleated RBC/100 WBC (Bld) [Ratio] 0.0 % [facility] Platelet mean volume (Bld) [Entitic vol] 9.2 fL 9.0 - 12.7 fL [facility] Platelets (Bld) [#/Vol] 289 10*3/uL 140 - 440 10*3/uL [facility] RBC (Bld) [#/Vol] 3.93 10*6/uL 3.80 - 5.2 0 10*6/uL [facility] WBC (Bld) [#/Vol] 9.8 10*3/uL 3.6 - 10.7 10*3/uL [facility] CBC WITH AUTO DIFFERENTIALon 09-22-2023 Basophils (Bld) [#/Vol] 0.1 10*3/uL Normal 0.0-0.[address] [facility] Comment on above: Performed By: #### L [id number] ####[employer] Architect: HANS PAULSON ([id number])[facility] (SBHLAB)[address] Basophils/100 WBC (Bld) 0.5 % Normal 0.0-2.0 [facility] Comment on above: Performed By: #### L [id number] ####[employer] Autom[employer] Architect: HANS PAULSON ([id number])[facility] ([facility])[address] [place] [address] Eosinophils (Bld) [#/Vol] 0.1 10*3/uL Normal 0.0-0.[address] [facility] Comment on above: Performed By: #### L [id number] ####[employer] Automation Architect: HANS PAULSON ([id number])[facility] ([facility])[address] [place] [address] Eosinophils/100 WBC (Bld) 1.3 % Normal 0.0-6.[address] [facility] Comment on above: Performed By: #### L [id number] ####[employer] Automation Architect: HANS PAULSON ([id number])[facility] [place] ([facility])[address] [place] [address] Erythrocyte distribution width (RBC) [Ratio] 13.2 % Normal 11.5-15.[address] [facility] Comment on above: Performed By: #### L [id number] ####[employer] Autom[employer] Architect: HANS PAULSON ([id number])[facility] [place] ([facility])[address] [place] [address] Hematocrit (Bld) [Volume fraction] 37.5 % Normal 35.0-47.[address] [facility] Comment on above: Performed By: #### L [id number] ####[employer] Automation Architect: HANS PAULSON ([id number])[facility] (SB[facility])[address] Hemoglobin (Bld) [Mass/Vol] 11.9 g/dL Normal 11.7-16.[address] [facility] Comment on above: Performed By: #### L [id number] ####[employer] Automation Architect: HANS PAULSON ([id number])[facility] (SB[facility])[address] IMMATURE GRANS % 0.3 % Normal 0.0-2.0 [facility] Comment on above: Performed By: #### L [id number] ####Qa Automation Architect: HANS PAULSON ([id number])[facility] IMMATURE GRANS ABSOLUTE 0.0 10*3/uL Normal <0.[address] [facility] Comment on above: Performed By: #### L [id number] ####Qa Automation Architect: HANS PAULSON ([id number])[facility] ([facility])[address] Lymphocytes (Bld) [#/Vol] 0.8 10*3/uL Low 1.0-4.[address] [facility] Comment on above: Performed By: #### L [id number] ####[employer] Automation Architect: HANS PAULSON ([id number])[facility] (SB[facility])[address] Lymphocytes/100 WBC (Bld) 8.6 % Low 15.0-45.[address] [facility] Comment on above: Performed By: #### L [id number] ####[employer]a Automation Architect: HANS PAULSON ([id number])[facility])[address] MCH (RBC) [Entitic mass] 30.3 pg Normal 26.0-34.[address] [facility] Comment on above: Performed By: #### L [id number] ####[employer] Automation Architect: HANS PAULSON ([id number])[facility] ([facility])[address] MCHC 31.7 % Normal 30.5-36.0 [facility] Comment on above: Performed By: #### L [id number] ####Qa Automation Architect: HANS ALCANTARESCOBAR ([id number])[facility] ([facility]HL[facility])[address] MCV (RBC) [Entitic vol] 95.4 fL Normal 77.0-99.0 [facility] Comment on above: Performed By: #### L [id number] ####[employer] Automation Architect: HANS PAULSON ([id number])[facility] ([facility])[address] Monocytes (Bld) [#/Vol] 0.5 10*3/uL Normal 0.0-0.9 [facility] Comment on above: Performed By: #### L [id number] ####Q[employer] Automation Architect: HANS PAULSON ([id number])[facility] ([facility])[address] Monocytes/100 WBC (Bld) 5.3 % Normal 5.0-13.0 [facility] Comment on above: Performed By: #### L [id number] ####[employer] Automation Architect: HANS PAULSON ([id number])[facility] ([facility])[address] NEUTROPHILS ABSOLUTE 8.2 10*3/uL High 1.8-7.5 [facility] Comment on above: Performed By: #### L [id number] ####Qa Automation Architect: HANS PAULSON ([id number])[facility] ([facility])[address] Neutrophils/100 WBC (Bld) 84.0 % High 38.0-82.0 [facility] Comment on above: Performed By: #### L [id number] ####[employer] Automation Architect: HANS PAULSON ([id number])[facility] ([facility])[address] NRBC 0.0 /100 WBCs Normal 0.0-2.0 [facility] Comment on above: Performed By: #### L [id number] ####Qa Automation Architect: HANS PAULSON ([id number])[facility] ([facility])[address] Platelet mean volume (Bld) [Entitic vol] 9.2 fL Normal 9.0-12.7 [facility] Comment on above: Performed By: #### L [id number] ####[employer] Automation Architect: HANS PAULSON ([id number])[facility] ([facility])[address] Platelets (Bld) [#/Vol] 289 10*3/uL Normal 140-440 [facility] Comment on above: Performed By: #### L [id number] ####Qa Automation Architect: HANS PAULSON ([id number])[facility] ([facility])[address] [place] [address] RBC (Bld) [#/Vol] 3.93 10*6/uL Normal 3.80-5.20 [facility] Comment on above: Performed By: #### L [id number] ####Qa Automation Architect: HANS PAULSON ([id number])[facility] ([facility])[address] [place] [address] WBC (Bld) [#/Vol] 9.8 10*3/uL Normal 3.6-10.7 [facility] Comment on above: Performed By: #### L [id number] ####[employer] Automation Architect: HANS PAULSON ([id number])[facility] ([facility])[address] IDNon 09-22-2023 IDN The patient is Moderately Unstable - Medium risk of patient condition declining or worsening The patient's goals for the shift include rest The clinical goals for the shift include safety Normal [facility] Progress Noteon 09-22-2023 Progress Note Patient chart is reviewed. Currently rounding. Full note to follow. Normal [facility] 25-hydroxyvitamin D3 [Mass/V ol]on 09-21-2023 Interpretation and review of laboratory results Normal [facility] Therapy is based on measurement of Total 25-OHD with the following classification levels: Less than 20 ng/mL: Indicative of Vit D deficiency 20-30 ng/mL: Suggests Vit D insufficiency Optimal: Greater than or equal to 30 ng/mL Test performed by [employer] Competitive Immunoassay, measuring Total Vitamin D, not individual fractions. [facility] [id number] 09-21-2023 [id number] Normal [facility] BASIC METABOLIC PANELon Anion gap [Moles/Vol] 2 mmol/L Low 3-13 [facility] Comment on above: Performed By: #### L [id number], [id number], LAB15, LAB67 ####[employer] Automation Architect: HANS PAULSON ([id number])[facility] (SBHLAB)[address] Calcium [Mass/Vol] 9.1 mg/dL Normal 8.4-10.4 [facility] Comment on above: Performed By: #### L AB129, [id number], LAB15, LAB67 ####[employer] Automation Architect: HANS PAULSON ([id number])[facility] (SB[facility])[address] Chloride [Moles/Vol] 102 mmol/L Normal 98-107 [facility] Comment on above: Performed By: #### L AB129, [id number], LAB15, LAB67 ####[employer] Autom[employer] Architect: HANS PAULSON ([id number])[facility] (SBHLAB)[address] [place] [address] [place] CO2 [Moles/Vol] 35 mmol/L High 22-30 [facility] Comment on above: Performed By: #### L AB129, [id number], LAB15, LAB67 ####[employer] Automation Architect: HANS PAULSON ([id number])[facility] (SBHLAB)[address] [place] [address] [place] Creatinine [Mass/Vol] 0.49 mg/dL Low 0.52-1.04 [facility] Comment on above: Performed By: #### L AB129, [id number], LAB15, LAB67 ####[employer] Automation Architect: HANS PAULSON ([id number])[facility] GLOMERULAR FILTRATION RATE ML/MIN/1.73 SQ M.PREDICTED >90.0 Normal >60.0 [facility] Comment on above: Result Comment: Calc ulation based on the Chronic Kidney Disease Epidemiology Collaboration (CKD-EPI) equation refit without adjustment for race Performed By: #### L AB129, [id number], LAB15, LAB67 ####[employer] Automation Architect: HANS PAULSON ([id number])[facility] ([facility])[address] Glucose [Mass/Vol] 97 mg/dL Normal 70-100 [facility] Comment on above: Performed By: #### L AB129, [id number], LAB15, LAB67 ####[employer] Automation Architect: HANS PAULSON ([id number])[facility] Potassium [Moles/Vol] 3.1 mmol/L Low 3.5-5.1 [facility] Comment on above: Performed By: #### L AB129, [id number], LAB15, LAB67 ####[employer] Automation Architect: HANS PAULSON ([id number])[facility] [place] [address] [place] Sodium [Moles/Vol] 139 mmol/L Normal 135-145 [facility] Comment on above: Performed By: #### L AB129, [id number], LAB15, LAB67 ####[employer] Automation Architect: HANS PAULSON ([id number])[facility] [place] [address] [place] Urea nitrogen [Mass/Vol] 18 mg/dL High 7-17 [facility] Comment on above: Performed By: #### L AB129, [id number], LAB15, LAB67 ####[employer] Automation Architect: HANS PAULSON ([id number])[facility] (SBHLAB)[address] [place] [address] Basic metabolic 1998 panelon 09-21-2023 Anion gap [Moles/Vol] 2 mmol/L Low 3 - 13 mmol/L [facility] Calcium [Mass/Vol] 9.1 mg/dL 8.4 - 10. 4 mg/dL [facility] Chloride [Moles/Vol] 102 mmol/L 98 - 10 7 mmol/L [facility] CO2 [Moles/Vol] 35 mmol/L High 22 - 30 mmol/L [facility] Creatinine [Mass/Vol] 0.49 mg/dL Low 0.52 - 1.04 mg/dL [facility] GFR/1.73 sq M.predicted MDRD (S/P/Bld) [Vol rate/Area] - PINF [facility] Comment on above: Calculation based on the Chronic Kidney Disease Epidemiology Collaboration (CKD-EPI) equation refit without adjustment for race Glucose [Mass/Vol] 97 mg/dL 70 - 100 mg/dL [facility] Potassium [Moles/Vol] 3.1 mmol/L Low 3.5 - 5.1 mmol/L [facility] Sodium [Moles/Vol] 139 mmol/L 135 - 145 mmol/L [facility] Urea nitrogen [Mass/Vol] 18 mg/dL High 7 - 17 mg/d L [facility] CARECOORDon 09-21-2023 [facility] CBC W Auto Differential pane l (Bld)Ordered By: Crystal Dupont on 09-21-2023 Basophils (Bld) [#/Vol] 0.1 10*3/uL 0.0 - 0.2 10*3/uL [facility] Basophils/100 WBC (Bld) 0.5 % 0.0 - 2.0 % [facility] Eosinophils (Bld) [#/Vol] 0.8 10*3/uL High 0.0 - 0.5 10*3/uL [facility] Eosinophils/100 WBC (Bld) 8.2 % High 0.0 - 6.0 % [facility] Erythrocyte distribution width (RBC) [Ratio] 13.2 % 11.5 - 15.0 % [facility] Hematocrit (Bld) [Volume fraction] 33.9 % Low 35.0 - 47.0 % [facility] Hemoglobin (Bld) [Mass/Vol] 10.6 g/dL Low 11.7 - 16.0 g/dL [facility] Immature granulocytes (Bld) [#/Vol] 0.0 10*3/uL NINF - 0.1 10*3/uL [facility] Immature granulocytes/100 WBC (Bld) 0.2 % 0.0 - 2.0 % [facility] Interpretation and review of laboratory results Abnormal [facility] Lymphocytes (Bld) [#/Vol] 0.8 10*3/uL Low 1.0 - 4.3 10*3/uL [facility] Lymphocytes/100 WBC (Bld) 8.7 % Low 15.0 - 45.0 % [facility] MCH (RBC) [Entitic mass] 30.2 pg 26. 0 - 34.0 pg [facility] MCHC (RBC) [Mass/Vol] 31.3 % 30.5 - 36.0 % [facility] MCV (RBC) [Entitic vol] 96.6 fL 77.0 - 99.0 fL [facility] Monocytes (Bld) [#/Vol] 0.7 10*3/uL 0.0 - 0.9 10*3/uL [facility] Monocytes/100 WBC (Bld) 7.1 % 5.0 - 13.0 % [facility] Neutrophils (Bld) [#/Vol] 7.0 10*3/uL 1.8 - 7.5 10*3/uL [facility] Neutrophils/100 WBC (Bld) 75.3 % 38.0 - 82.0 % [facility] Nucleated RBC/100 WBC (Bld) [Ratio] 0.0 % [facility] Platelet mean volume (Bld) [Entitic vol] 9.5 fL 9.0 - 12.7 fL [facility] Platelets (Bld) [#/Vol] 217 10*3/uL 140 - 440 10*3/uL [facility] RBC (Bld) [#/Vol] 3.51 10*6/uL Low 3.80 - 5.2 0 10*6/uL [facility] WBC (Bld) [#/Vol] 9.4 10*3/uL 3.6 - 10.7 10*3/uL [facility] CBC WITH AUTO DIFFERENTIALon 09-21-2023 Basophils (Bld) [#/Vol] 0.1 10*3/uL Normal 0.0-0.[address] [facility] Comment on above: Performed By: #### L [id number] ####[employer] Architect: HANS PAULSON ([id number])[facility] [place] ([facility])[address] Basophils/100 WBC (Bld) 0.5 % Normal 0.0-2.0 [facility] Comment on above: Performed By: #### L [id number] ####Qa Automation Architect: HANS PAULSON ([id number])[facility] (SB[facility])[address] [place] [address] Eosinophils (Bld) [#/Vol] 0.8 10*3/uL High 0.0-0.[address] [facility] Comment on above: Performed By: #### L [id number] ####[employer] Automation Architect: HANS PAULSON ([id number])[facility] ([facility])[address] Eosinophils/100 WBC (Bld) 8.2 % High 0.0-6.[address] [facility] Comment on above: Performed By: #### L [id number] ####[employer] Automation Architect: HANS PAULSON ([id number])[facility] ([facility])[address] Erythrocyte distribution width (RBC) [Ratio] 13.2 % Normal 11.5-15.[address] [facility] Comment on above: Performed By: #### L [id number] ####[employer] Automation Architect: HANS PAULSON ([id number])[facility] (SBAB)[address] [place] [address] Hematocrit (Bld) [Volume fraction] 33.9 % Low 35.0-47.[address] [facility] Comment on above: Performed By: #### L [id number] ####[employer] Automation Architect: HANSRONALD WALDROPKimESCOBAR ([id number])[facility] ([facility])[address] Hemoglobin (Bld) [Mass/Vol] 10.6 g/dL Low 11.7-16.[address] [facility] Comment on above: Performed By: #### L [id number] ####[employer] Automation Architect: HANS WALDROPKimESCOBAR ([id number])[facility] ([facility])[address] IMMATURE GRANS % 0.2 % Normal 0.0-2.0 [facility] Comment on above: Performed By: #### L [id number] ####[employer] Automation Architect: HANS PAULSON ([id number])[facility] IMMATURE GRANS ABSOLUTE 0.0 10*3/uL Normal <0.[address] [facility] Comment on above: Performed By: #### L [id number] ####[employer] Automation Architect: HANS LORENE ([id number])[facility] Lymphocytes (Bld) [#/Vol] 0.8 10*3/uL Low 1.0-4.[address] [facility] Comment on above: Performed By: #### L [id number] ####[employer] Automation Architect: HANS ALCANTARESCOBAR ([id number])[facility] Lymphocytes/100 WBC (Bld) 8.7 % Low 15.0-45.[address] [facility] Comment on above: Performed By: #### L [id number] ####Qa Automation Architect: HANS ALCANTARESCOBAR ([id number])[facility] MCH (RBC) [Entitic mass] 30.2 pg Normal 26.0-34.[address] [facility] Comment on above: Performed By: #### L [id number] ####[employer] Automation Architect: HANS ALCANTARESCOBAR ([id number])[facility] [place] (SB[facility])[address] MCHC 31.3 % Normal 30.5-36.0 [facility] Comment on above: Performed By: #### L [id number] ####[employer] Automation Architect: HANS WALDROPIVELISSE ([id number])[facility] ([facility])[address] MCV (RBC) [Entitic vol] 96.6 fL Normal 77.0-99.0 [facility] Comment on above: Performed By: #### L [id number] ####[employer]a Automation Architect: HANS WALDROPIVELISSE ([id number])[facility] [place] ([facility])[address] [place] [address] Monocytes (Bld) [#/Vol] 0.7 10*3/uL Normal 0.0-0.9 [facility] Comment on above: Performed By: #### L [id number] ####[employer] Automation Architect: HANS ALCANTARESCOBAR ([id number])[facility] [place] ([facility])[address] Monocytes/100 WBC (Bld) 7.1 % Normal 5.0-13.0 [facility] Comment on above: Performed By: #### L [id number] ####[employer] Automation Architect: HANS PAULSON ([id number])[facility] ([facility])[address] NEUTROPHILS ABSOLUTE 7.0 10*3/uL Normal 1.8-7.5 [facility] Comment on above: Performed By: #### L [id number] ####Qa Automation Architect: HANS PAULSON ([id number])[facility] [place] ([facility])[address] Neutrophils/100 WBC (Bld) 75.3 % Normal 38.0-82.[address] [facility] Comment on above: Performed By: #### L [id number] ####Qa Automation Architect: HANSRONALD PAULSON ([id number])[facility] ([facility])[address] NRBC 0.0 /100 WBCs Normal 0.0-2.0 [facility] Comment on above: Performed By: #### L [id number] ####Qa Automation Architect: HANSRNOALD PAULSON ([id number])[facility] [place] ([facility])[address] Platelet mean volume (Bld) [Entitic vol] 9.5 fL Normal 9.0-12.7 [facility] Comment on above: Performed By: #### L [id number] ####Qa Automation Architect: HANS PAULSON ([id number])[facility] [place] ([facility])[address] [place] [address] Platelets (Bld) [#/Vol] 217 10*3/uL Normal 140-440 [facility] Comment on above: Performed By: #### L [id number] ####Qa Automation Architect: HANS PAULSON ([id number])[facility] (SB[facility]AB)[address] [place] [address] RBC (Bld) [#/Vol] 3.51 10*6/uL Low 3.80-5.20 [facility] Comment on above: Performed By: #### L [id number] ####Qa Automation Architect: HANS LORENE ([id number])[facility] [place] ([facility])[address] WBC (Bld) [#/Vol] 9.4 10*3/uL Normal 3.6-10.7 [facility] Comment on above: Performed By: #### L [id number] ####[employer]a Automation Architect: HANS LORENE ([id number])[facility] [place] ([facility])[address] Helen 09-21-2023 NADEEMN Telephone ([facility] GONZALO DELUCA ([id number]) 1955 F Date Time Provider Department 09/21/23 HERMINIA CASE During your visit today, we recorded the following information about you: Ana Maria Acosta, RN 09/21/2023 2:55 PM Signed Ashley from [facility] Patient currently admitted for falls Need orders to follow for Home Care Call back number: [phone] Melva Juárez PA-C 09/21/2023 4:01 PM Signed Orders or will Dr. Case follow? She will follow. We don't typically give home care orders. RODRÍGUEZ Kruse Kristina, RN 09/21/2023 4:54 PM Signed Called and spoke with Vivian from [place] They just need to confirm Dr. Case [...] by ANA MARIA ACOSTA on 09/21/23 Normal [facility] Cobalamin (Vitamin B12) [Mas s/Vol]on 09-21-2023 Interpretation and review of laboratory results Normal [facility] Consulton 09-21-2023 Consult Normal [facility] ECG 12-LEADon 09-21-2023 ECG 12-LEAD IMPRESSION: Sinus rhythm Nonspecific T abnormalities, lateral leads Compared to ECG 09/19/2023 17:01:12 T-wave abnormality now present Prolonged QT interval no longer present Electronically Signed On 09-21-2023 09:19:23 EDT by Raul Cao Normal [facility] IDNon 09-21-2023 IDN The patient is Moderately Unstable - Medium risk of patient condition declining or worsening The patient's goals for the shift include safety and comfort The clinical goals for the shift include safety Normal [facility] Laboratory - Chemistry and C hemistry - challengeon 09-21-2023 Cobalamin (Vitamin B12) [Mass/Vol] 735 pg/mL 239 - 931 pg/mL [facility] [employer] TSH Qn 1.017 m[IU]/L [facility] [employer] h 25-hydroxyvitamin D3 [Mass/Vol] 30 ng/mL 30 - 100 ng/mL [facility] [employer] Magnesium [Mass/Vol] 1.5 mg/dL Low 1.6 - 2 .3 mg/dL [facility] [employer] MAGNESIUMon 09-21-2023 Magnesium [Mass/Vol] 1.5 mg/dL Low 1.6-2.3 [facility] Comment on above: Performed By: #### L AB129, [id number], LAB15, LAB67 ####[employer] Autom[employer] Architect: HANS PAULSON ([id number])[facility] ([facility])[address] [place] [address] No Panel InformationOrdered By: Raul Cao on 09-21-2023 P Momence 46 degrees [facility] Work Phone: MS Interval 142 ms [facility] Work Phone: QRS Momence -35 degrees [facility] Work Phone: QRSD Interval 102 ms [facility] Work Phone: QT Interval 382 ms [facility] Work Phone: QTC Interval 446 ms [facility] Work Phone: T Wave Momence 147 degrees [facility] Work Phone: [facility] Work Phone: No Panel Informationon 09-20 Sinus rhythm Nonspecific T abnormalities, lateral leads Compared to ECG 09/19/2023 17:01:12 T-wave abnormality now present Prolonged QT interval no longer present Electronically Signed On 09-21-2023 09:19:23 EDT by Raul Cao CV Raul Forman MD - 09/21/2023 IMPRESSION: Sinus rhythm Nonspecific T abnormalities, lateral leads Compared to ECG 09/19/2023 17:01:12 T-wave abnormality now present Prolonged QT interval no longer present Electronically Signed On 09-21-2023 09:19:23 EDT by Raul Cao [facility] Interpretation and review of laboratory results Abnormal [facility] Progress Noteon 09-21-2023 Progress Note Normal [facility] Progress Note Normal [facility] Progress Note Normal [facility] Progress Note Normal [facility] THYROID STIMULATING HORMONEo n 09-21-2023 THYROID STIMULATING HORMONE 1.017 uIU/mL Normal 0.465-4.680 [facility] Comment on above: Performed By: #### L [id number], [id number], LAB15, LAB67 ####[employer] Automation Architect: HANS PAULSON ([id number])[facility] ([facility])[address] [place] [address] TSH Qnon 09-21-2023 Interpretation and review of laboratory results Normal [facility] VITAMIN B12on 09-21-2023 Cobalamin (Vitamin B12) [Mass/Vol] 735 pg/mL Normal 239-931 [facility] Comment on above: Performed By: #### L AB129, [id number], LAB15, LAB67 ####[employer] Automation Architect: HANS PAULSON ([id number])[facility] ([facility])[address] VITAMIN D DEFICIENCY SCREENI NG (VIT D 25)on 09-21-2023 VIT D 25-OH, TOTAL 30 ng/mL Normal 30-100 [facility] Comment on above: Result Comment: ORDE R COMMENTS:Therapy is based on measurement of Total 25-OHD with the following classification levels:Less than 20 ng/mL: Indicative of Vit D [id number] ng/mL: Suggests Vit D insufficiencyOptimal: Greater than or equal to 30 ng/mLTest performed by [employer] Competitive Immunoassay, measuring Total Vitamin D, not individual fractions. Performed By: #### L [id number] ####[employer]a Automation Architect: HANS PAULSON ([id number])[facility] ([facility])[address] Vital signsOrdered By: Bernadette Cao on 09-21-2023 Heart rate 82 /min bpm [facility] Work Phone: BASIC METABOLIC PANELon 07-0 Anion gap [Moles/Vol] 5 mmol/L Normal 3-13 [facility] Comment on above: Performed By: #### L AB15, [id number], [id number] ####[employer] Autom[employer] Architect: HANS PAULSON ([id number])[facility] ([facility])[address] Calcium [Mass/Vol] 8.5 mg/dL Normal 8.4-10.4 [facility] Comment on above: Performed By: #### L AB15, [id number], [id number] ####[employer] Autom[employer] Architect: HANS PAULSON ([id number])[facility] ([facility])[address] Chloride [Moles/Vol] 99 mmol/L Normal 98-107 [facility] Comment on above: Performed By: #### L AB15, DUC179, ECA444 ####[employer] Automation Architect: HANS PAULSON ([id number])[facility] ([facility])[address] [place] [address] [place] CO2 [Moles/Vol] 33 mmol/L High 22-30 [facility] Comment on above: Performed By: #### L AB15, [id number], KPG789 ####[employer] Automation Architect: HANS PAULSON ([id number])[facility] ([facility])[address] Creatinine [Mass/Vol] 0.73 mg/dL Normal 0.52-1.04 [facility] Comment on above: Performed By: #### L AB15, [id number], BLK970 ####[employer] Autom[employer] Architect: HANS PAULSON ([id number])[facility] ([facility])[address] GLOMERULAR FILTRATION RATE ML/MIN/1.73 SQ M.PREDICTED >90.0 Normal >60.0 [facility] Comment on above: Result Comment: Calc ulation based on the Chronic Kidney Disease Epidemiology Collaboration (CKD-EPI) equation refit without adjustment for race Performed By: #### L AB15, [id number], VHL115 ####[employer] Autom[employer] Architect: HANS PAULSON ([id number])[facility] ([facility])[address] Glucose [Mass/Vol] 94 mg/dL Normal 70-100 [facility] Comment on above: Performed By: #### L AB15, [id number], [id number] ####[employer] Automation Architect: HANS PAULSON ([id number])[facility] ([facility])[address] Potassium [Moles/Vol] 3.1 mmol/L Low 3.5-5.1 [facility] Comment on above: Performed By: #### L AB15, [id number], IKE172 ####[employer] Autom[employer] Architect: HANS PAULSON ([id number])[facility] ([facility])[address] Sodium [Moles/Vol] 137 mmol/L Normal 135-145 [facility] Comment on above: Performed By: #### L AB15, [id number], [id number] ####[employer] Automation Architect: HNAS PAULSON ([id number])[facility] ([facility])[address] [place] [address] [place] Urea nitrogen [Mass/Vol] 28 mg/dL High 7-17 [facility] Comment on above: Performed By: #### L AB15, [id number], ZQE337 ####Qa Automation Architect: HANS PAULSON ([id number])[facility] MAKAYLAEN[facility] ([facility])[address] Basic metabolic 1998 panelon 09-20-2023 Anion gap [Moles/Vol] 5 mmol/L 3 - 13 mmol/L [facility] Calcium [Mass/Vol] 8.5 mg/dL 8.4 - 10. 4 mg/dL [facility] Chloride [Moles/Vol] 99 mmol/L 98 - 10 7 mmol/L [facility] CO2 [Moles/Vol] 33 mmol/L High 22 - 30 mmol/L [facility] Creatinine [Mass/Vol] 0.73 mg/dL 0.52 - 1.04 mg/dL [facility] GFR/1.73 sq M.predicted MDRD (S/P/Bld) [Vol rate/Area] - PINF [facility] Comment on above: Calculation based on the Chronic Kidney Disease Epidemiology Collaboration (CKD-EPI) equation refit without adjustment for race Glucose [Mass/Vol] 94 mg/dL 70 - 100 mg/dL [facility] Interpretation and review of laboratory results Abnormal [facility] Potassium [Moles/Vol] 3.1 mmol/L Low 3.5 - 5.1 mmol/L [facility] Sodium [Moles/Vol] 137 mmol/L 135 - 145 mmol/L [facility] Urea nitrogen [Mass/Vol] 28 mg/dL High 7 - 17 mg/d L [facility] CARECOORDon 09-20-2023 CARECOWAINSCOTT Normal [facility] CBC W Auto Differential pane l (Bld)on 09-20-2023 Basophils (Bld) [#/Vol] 0.1 10*3/uL 0.0 - 0.2 10*3/uL [facility] Basophils/100 WBC (Bld) 0.5 % 0.0 - 2.0 % [facility] Eosinophils (Bld) [#/Vol] 0.8 10*3/uL High 0.0 - 0.5 10*3/uL [facility] Eosinophils/100 WBC (Bld) 7.0 % High 0.0 - 6.0 % [facility] Erythrocyte distribution width (RBC) [Ratio] 12.9 % 11.5 - 15.0 % [facility] Hematocrit (Bld) [Volume fraction] 34.8 % Low 35.0 - 47.0 % [facility] Hemoglobin (Bld) [Mass/Vol] 11.0 g/dL Low 11.7 - 16.0 g/dL [facility] [employer] Immature granulocytes (Bld) [#/Vol] 0.0 10*3/uL NINF - 0.1 10*3/uL [facility] Health Immature granulocytes/100 WBC (Bld) 0.4 % 0.0 - 2.0 % [facility] Interpretation and review of laboratory results Abnormal [facility] Lymphocytes (Bld) [#/Vol] 1.3 10*3/uL 1.0 - 4.3 10*3/uL [facility] Health Lymphocytes/100 WBC (Bld) 11.5 % Low 15.0 - 45.0 % [facility] MCH (RBC) [Entitic mass] 30.2 pg 26. 0 - 34.0 pg [facility] MCHC (RBC) [Mass/Vol] 31.6 % 30.5 - 36.0 % [facility] MCV (RBC) [Entitic vol] 95.6 fL 77.0 - 99.0 fL [facility] Monocytes (Bld) [#/Vol] 0.7 10*3/uL 0.0 - 0.9 10*3/uL [facility] Health Monocytes/100 WBC (Bld) 6.0 % 5.0 - 13.0 % [facility] Neutrophils (Bld) [#/Vol] 8.2 10*3/uL High 1.8 - 7.5 10*3/uL [facility] Neutrophils/100 WBC (Bld) 74.6 % 38.0 - 82.0 % [facility] Nucleated RBC/100 WBC (Bld) [Ratio] 0.0 % [facility] Platelet mean volume (Bld) [Entitic vol] 9.4 fL 9.0 - 12.7 fL [facility] Platelets (Bld) [#/Vol] 243 10*3/uL 140 - 440 10*3/uL [facility] RBC (Bld) [#/Vol] 3.64 10*6/uL Low 3.80 - 5.2 0 10*6/uL [facility] WBC (Bld) [#/Vol] 10.9 10*3/uL High 3.6 - 10.7 10*3/uL [facility] CBC WITH AUTO DIFFERENTIALon 09-20-2023 Basophils (Bld) [#/Vol] 0.1 10*3/uL Normal 0.0-0.[address] [facility] Comment on above: Performed By: #### L [id number] ####[employer] Automation Architect: HANS ALCANTARESCOBAR ([id number])[facility] ([facility])[address] Basophils/100 WBC (Bld) 0.5 % Normal 0.0-2.0 [facility] Comment on above: Performed By: #### L [id number] ####[employer] Automation Architect: HANS ALCANTARESCOBAR ([id number])[facility] ([facility])[address] Eosinophils (Bld) [#/Vol] 0.8 10*3/uL High 0.0-0.[address] [facility] Comment on above: Performed By: #### L [id number] ####[employer] Automation Architect: HANS ALCANTARESCOBAR ([id number])[facility] ([facility])[address] Eosinophils/100 WBC (Bld) 7.0 % High 0.0-6.[address] [facility] Comment on above: Performed By: #### L [id number] ####[employer] Automation Architect: HANS ALCANTARESCOBAR ([id number])[facility] ([facility])[address] Erythrocyte distribution width (RBC) [Ratio] 12.9 % Normal 11.5-15.[address] [facility] Comment on above: Performed By: #### L [id number] ####[employer] Automation Architect: HANS ALCANTARESCOBAR ([id number])[facility] ([facility])[address] Hematocrit (Bld) [Volume fraction] 34.8 % Low 35.0-47.[address] [facility] Comment on above: Performed By: #### L [id number] ####[employer] Automation Architect: HANS PAULSON ([id number])[facility] ([facility])[address] Hemoglobin (Bld) [Mass/Vol] 11.0 g/dL Low 11.7-16.0 [facility] Comment on above: Performed By: #### L [id number] ####Q[employer] Automation Architect: HANS PAULSON ([id number])[facility] ([facility])[address] IMMATURE GRANS % 0.4 % Normal 0.0-2.0 [facility] Comment on above: Performed By: #### L [id number] ####Q[employer] Automation Architect: HANS PAULSON ([id number])[facility] ([facility])[address] IMMATURE GRANS ABSOLUTE 0.0 10*3/uL Normal <0.[address] [facility] Comment on above: Performed By: #### L [id number] ####[employer] Automation Architect: HANS PAULSON ([id number])[facility] ([facility])[address] Lymphocytes (Bld) [#/Vol] 1.3 10*3/uL Normal 1.0-4.3 [facility] Comment on above: Performed By: #### L [id number] ####Qa Automation Architect: HANS PAULSON ([id number])[facility] ([facility])[address] Lymphocytes/100 WBC (Bld) 11.5 % Low 15.0-45.[address] [facility] Comment on above: Performed By: #### L [id number] ####Qa Automation Architect: HANS PAULSON ([id number])[facility] ([facility])[address] MCH (RBC) [Entitic mass] 30.2 pg Normal 26.0-34.[address] [facility] Comment on above: Performed By: #### L [id number] ####Qa Automation Architect: HANS PAULSON ([id number])[facility] ([facility])[address] MCHC 31.6 % Normal 30.5-36.0 [facility] Comment on above: Performed By: #### L [id number] ####Qa Automation Architect: HANS WALDROPKimESCOBAR ([id number])[facility] ([facility])[address] MCV (RBC) [Entitic vol] 95.6 fL Normal 77.0-99.0 [facility] Comment on above: Performed By: #### L [id number] ####Qa Automation Architect: HANS LORENE ([id number])[facility] ([facility])[address] Monocytes (Bld) [#/Vol] 0.7 10*3/uL Normal 0.0-0.9 [facility] Comment on above: Performed By: #### L [id number] ####Qa Automation Architect: HANS LORENE ([id number])[facility] ([facility])[address] Monocytes/100 WBC (Bld) 6.0 % Normal 5.0-13.0 [facility] Comment on above: Performed By: #### L [id number] ####Q[employer] Automation Architect: HANS ALCANTARESCOBAR ([id number])[facility] ([facility])[address] NEUTROPHILS ABSOLUTE 8.2 10*3/uL High 1.8-7.5 [facility] Comment on above: Performed By: #### L [id number] ####Qa Automation Architect: HANS WALDROPBOOESCOBAR ([id number])[facility] ([facility])[address] Neutrophils/100 WBC (Bld) 74.6 % Normal 38.0-82.0 [facility] Comment on above: Performed By: #### L [id number] ####Qa Automation Architect: HANS ALCANTARESCOBAR ([id number])[facility] ([facility])[address] NRBC 0.0 /100 WBCs Normal 0.0-2.0 [facility] Comment on above: Performed By: #### L [id number] ####Qa Automation Architect: HANS PAULSON ([id number])[facility] ([facility])[address] Platelet mean volume (Bld) [Entitic vol] 9.4 fL Normal 9.0-12.7 [facility] Comment on above: Performed By: #### L [id number] ####[employer] Automation Architect: HANS PAULSON ([id number])[facility] ([facility])[address] Platelets (Bld) [#/Vol] 243 10*3/uL Normal 140-440 [facility] Comment on above: Performed By: #### L [id number] ####[employer] Automation Architect: HANS PAULSON ([id number])[facility] ([facility])[address] RBC (Bld) [#/Vol] 3.64 10*6/uL Low 3.80-5.20 [facility] Comment on above: Performed By: #### L [id number] ####Qa Automation Architect: HANS PAULSON ([id number])[facility] ([facility])[address] [place] [address] WBC (Bld) [#/Vol] 10.9 10*3/uL High 3.6-10.7 [facility] Comment on above: Performed By: #### L [id number] ####Qa Automation Architect: HANS PAULSON ([id number])[facility] ([facility])[address] [place] [address] [place] Consulton 09-20-2023 Consult Normal [facility] Consult Normal [facility] Consult Normal [facility] IDNon 09-20-2023 IDN Normal [facility] Laboratory - Chemistry and C hemistry - challengeon 09-20-2023 Magnesium [Mass/Vol] 2.3 mg/dL 1.6 - 2 .3 mg/dL [facility] Troponin I.cardiac [Mass/Vol] 0.022 ng/mL NINF - 0.034 ng/mL [facility] Magnesium [Mass/Vol] 2.7 mg/dL High 1.6 - 2 .3 mg/dL [facility] MAGNESIUMon 09-20-2023 Magnesium [Mass/Vol] 2.3 mg/dL Normal 1.6-2.3 [facility] Comment on above: Performed By: #### L AB15, [id number], [id number] ####[employer] Automation Architect: HANS PAULSON ([id number])[facility] ([facility])[address] [place] [address] Magnesium [Mass/Vol]on 09-19 Interpretation and review of laboratory results Normal [facility] Interpretation and review of laboratory results Abnormal [facility] Progress Noteon 09-20-2023 Progress Note Normal [facility] Progress Note Normal [facility] Progress Note Normal [facility] Progress Note Normal [facility] TROPONIN Ion 09-20-2023 Troponin I.cardiac [Mass/Vol] 0.022 ng/mL Normal <0.034 [facility] Comment on above: Result Comment: KYM Gilmore COMMENTS:Patients with high levels of Biotin oral intake (ie >5 mg/day) may have falsely decreased Troponin levels. Performed By: #### L AB15, [id number], [id number] ####[employer] Automation Architect: HANS PAULSON ([id number])[facility] ([facility])[address] [place] [address] Troponin I.cardiac [Mass/Vol ]on 09-20-2023 Interpretation and review of laboratory results Normal [facility] Patients with high levels of Biotin oral intake (ie >5 mg/day) may have falsely decreased Troponin levels. [facility] US Heart TransthoracicOrdere d By: Srini Vital on 09-20-2023 Ao Root Index 2.56 cm/m2 [facility] Work Phone: Aortic Root 4.0 cm [facility] Work Phone: Aortic Sinus Valsalva 4.0 cm Sum al [employer] Phone: Aortic Sinus Valsalva Index 2.56 cm/m2 [facility] [employer] Phone: E/E' Lateral 4.67 [facility] [employer] Phone: E/E' Ratio (Averaged) 5.13 Sum al [employer] Phone: E/E' Septal 5.60 [facility] [employer] Phone: EF BP 65 % 55 - 100 % [facility] [employer] Work Phone: Fractional Shortening 2D 27 % 28 - 44 % [facility] [employer] Phone: Global Longitudinal Strain -18.1 % [facility] [employer] Phone: Interpretation and review of laboratory results Abnormal [facility] [employer] Phone: IVC Diameter 1.8 cm [facility] [employer] Phone: IVSd 1.0 cm Abnormal 0.6 - 0.9 cm [facility] [employer] Phone: LA Diameter 2.8 cm [facility] [employer] Phone: LA Size Index 1.79 cm/m2 [facility] [employer] Phone: LA Volume 2C 36 mL 22 - 52 mL [facility] [employer] Phone: LA Volume 4C 31 mL 22 - 52 mL [facility] [employer] Phone: LA Volume A/L 42 mL [facility] [employer] Work Phone: LA Volume BP 39 mL 22 - 52 mL [facility] [employer] Phone: LA Volume Index 2C 23 mL/m2 16 - 34 mL/m2 [facility] [employer] Phone: LA Volume Index 4C 20 mL/m2 16 - 34 mL/m2 [facility] [employer] Phone: LA Volume Index A/L 27 mL/m2 16 - 34 mL/m2 [facility] [employer] Phone: LA Volume Index BP 25 ml/m2 16 - 34 ml/m2 [facility] [employer] Phone: LA/AO Root Ratio 0.70 [facility] Work Phone: LV E' Lateral Velocity 12 cm/s [facility] Work Phone: LV E' Septal Velocity 10 cm/s [facility] Work Phone: LV EDV A2C 56 mL [facility] Work Phone: LV EDV A4C 60 mL [facility] Work Phone: LV EDV BP 60 mL 56 - 104 mL [facility] Work Phone: LV EDV Index A2C 36 mL/m2 [facility] Work Phone: [phone] LV EDV Index A4C 38 mL/m2 [facility] Work Phone: LV EDV Index BP 38 mL/m2 [facility] Work Phone: [phone] LV Ejection Fraction A2C 60 % [facility] Work Phone: LV Ejection Fraction A4C 70 % [facility] Work Phone: LV ESV A2C 22 mL [facility] Work Phone: [phone] LV ESV A4C 18 mL [facility] Work Phone: LV ESV BP 21 mL 19 - 49 mL [facility] Work Phone: LV ESV Index A2C 14 mL/m2 [facility] [employer] Work Phone: LV ESV Index A4C 12 mL/m2 [facility] Work Phone: LV ESV Index BP 13 mL/m2 [facility] Work Phone: LV Mass 2D 158.2 g 67 - 162 g [facility] Work Phone: [phone] LV Mass 2D Index 101.4 g/m2 Abnormal 43 - 95 g/m2 [facility] Work Phone: LV RWT Ratio 0.50 [facility] Work Phone: LVIDd 4.4 cm 3.9 - 5.3 cm [facility] Work Phone: LVIDd Index 2.82 cm/m2 [facility] [employer] Work Phone: LVIDs 3.2 cm [facility] [employer] Work Phone: LVIDs Index 2.05 cm/m2 [facility] [employer] Work Phone: LVOT Area 4.2 cm2 [facility] [employer] Work Phone: LVOT Cardiac Output 6.5 liter/minute [facility] [employer] Work Phone: LVOT Diameter 2.3 cm [facility] [employer] Work Phone: LVOT Mean Gradient 2 mmHg [facility] [employer] Work Phone: LVOT Peak Gradient 3 mmHg [facility] [employer] Work Phone: LVOT Peak Velocity 0.9 m/s [facility] [employer] Work Phone: [phone] LVOT Stroke Volume Index 50.3 mL/m2 [facility] [employer] Work Phone: [phone] LVOT SV 78.5 ml [facility] [employer] Work Phone: LVOT VTI 18.9 cm [facility] [employer] Work Phone: LVPWd 1.1 cm Abnormal 0.6 - 0.9 cm [facility] [employer] Work Phone: MV A Velocity 0.55 m/s [facility] [employer] Work Phone: [phone] MV E Velocity 0.56 m/s [facility] Work Phone: [phone] MV E Wave Deceleration Time 192.4 ms [facility] [employer] Work Phone: MV E/A 1.02 [facility] [employer] Work Phone: RA Area 4C 28.3 mL [facility] [employer] Work Phone: RV Basal Dimension 2.7 cm [facility] [employer] Work Phone: RV Free Wall Peak S' 15 cm/s [facility] [employer] Work Phone: RV Longitudinal Dimension 5.0 cm [facility] Work Phone: RV Mid Dimension 2.4 cm [facility] Work Phone: Sinotubular Junction 3.4 cm [facility] Work Phone: TAPSE 1.9 cm 1.7 cm [facility] Work Phone: TR Max Velocity 2.90 m/s Abe Fuentes [facility] Work Phone: TR Peak Gradient 34 mmHg Abe German [facility] Work Phone: [facility] Work Phone: US Heart Transthoracicon Left [...] Calc (BldV) [Moles/Vol] 4.1 mmol/L High -3.0-3.0 [facility] Comment on above: Performed By: #### L [id number] ####[employer] Autom[employer] Architect: HANS PAULSON ([id number])[facility] ([facility])[address] CO2 [Moles/Vol] 31.4 mmol/L High 23.0-30.0 [facility] Comment on above: Performed By: #### L AB79 ####[employer] Autom[employer] Architect: HANS PAULSON ([id number])[facility] ([facility])[address] HCO3 (Bld) [Moles/Vol] 29.9 mmol/L Normal 21.0-30.0 [facility] Comment on above: Performed By: #### L AB79 ####[employer] Automation Architect: HANS PAULSON ([id number])[facility] ([facility])[address] [place] [address] Hemoglobin (Bld) [Mass/Vol] 13.4 g/dL Normal Screen only [facility] Comment on above: Performed By: #### L AB79 ####[employer] Architect: HANS PAULSON ([id number])[facility] ([facility])[address] OXYGEN (MM HG) IN VENOUS BLOOD 50.1 mm Hg Normal [facility] Comment on above: Performed By: #### L AB79 ####[employer] Architect: HANS PAULSON ([id number])[facility] ([facility])[address] OXYGEN SATURATION (%) IN VENOUS BLOOD 85.8 % Normal [facility] Comment on above: Performed By: #### L AB79 ####[employer] Autom[employer] Architect: HANS PAULSON ([id number])[facility] ([facility])[address] PCO2, VICKY 49.6 mm Hg Normal 35.0-53.0 [facility] Comment on above: Performed By: #### L AB79 ####[employer] Autom[employer] Architect: HANS WALDROPIVELISSE ([id number])[facility] PH VENOUS 7.398 Normal 7.320-7.420 [facility] Comment on above: Performed By: #### L AB79 ####[employer] Automation Architect: HANS ALCANTARESCOBAR ([id number])[facility] ([facility])[address] [place] [address] SOURCE OF OXYGEN Nasal cannula Normal [facility] Comment on above: Result Comment: KYM Gilmore COMMENTS:Assessment of oxygenation is best done with an arterial blood gas determination. Reference ranges for pO2, bicarbonate, and base excess are for mixed venous blood. Specimens drawn from a peripheral vein will often have higher values. Performed By: #### L [id number] ####[employer] Automation Architect: HANS ALCANTARESCOBAR ([id number])[facility] ([facility])[address] [place] [address] CBC W Auto Differential pane l (Bld)on 09-19-2023 Basophils (Bld) [#/Vol] 0.0 10*3/uL 0.0 - 0.2 10*3/uL [facility] [employer] Basophils/100 WBC (Bld) 0.2 % 0.0 - 2.0 % [facility] [employer] Eosinophils (Bld) [#/Vol] 0.3 10*3/uL 0.0 - 0.5 10*3/uL [facility] [employer] Eosinophils/100 WBC (Bld) 1.5 % 0.0 - 6.0 % [facility] [employer] Erythrocyte distribution width (RBC) [Ratio] 13.0 % 11.5 - 15.0 % [facility] [facility] Hematocrit (Bld) [Volume fraction] 39.6 % 35.0 - 47.0 % [facility] Hemoglobin (Bld) [Mass/Vol] 12.7 g/dL 11.7 - 16.0 g/dL [facility] Immature granulocytes (Bld) [#/Vol] 0.1 10*3/uL High NINF - 0.1 10*3/uL [facility] Health Immature granulocytes/100 WBC (Bld) 0.6 % 0.0 - 2.0 % [facility] Interpretation and review of laboratory results Abnormal [facility] Lymphocytes (Bld) [#/Vol] 1.3 10*3/uL 1.0 - 4.3 10*3/uL [facility] Lymphocytes/100 WBC (Bld) 6.5 % Low 15.0 - 45.0 % [facility] MCH (RBC) [Entitic mass] 30.4 pg 26. 0 - 34.0 pg [facility] MCHC (RBC) [Mass/Vol] 32.1 % 30.5 - 36.0 % [facility] MCV (RBC) [Entitic vol] 94.7 fL 77.0 - 99.0 fL [facility] Monocytes (Bld) [#/Vol] 1.0 10*3/uL High 0.0 - 0.9 10*3/uL [facility] Monocytes/100 WBC (Bld) 5.1 % 5.0 - 13.0 % [facility] Neutrophils (Bld) [#/Vol] 16.8 10*3/uL High 1.8 - 7.5 10*3/uL [facility] Neutrophils/100 WBC (Bld) 86.1 % High 38.0 - 82.0 % [facility] Nucleated RBC/100 WBC (Bld) [Ratio] 0.0 % [facility] Platelet mean volume (Bld) [Entitic vol] 9.3 fL 9.0 - 12.7 fL [facility] Platelets (Bld) [#/Vol] 339 10*3/uL 140 - 440 10*3/uL [facility] RBC (Bld) [#/Vol] 4.18 10*6/uL 3.80 - 5.2 0 10*6/uL [facility] WBC (Bld) [#/Vol] 19.5 10*3/uL High 3.6 - 10.7 10*3/uL [facility] CBC WITH AUTO DIFFERENTIALon 09-19-2023 Basophils (Bld) [#/Vol] 0.0 10*3/uL Normal 0.0-0.2 [facility] Comment on above: Performed By: #### L [id number] ####[employer]a Automation Architect: HANS PAULSON ([id number])[facility] ([facility])[address] Basophils/100 WBC (Bld) 0.2 % Normal 0.0-2.0 [facility] Comment on above: Performed By: #### L [id number] ####[employer] Automation Architect: HANS PAULSON ([id number])[facility] ([facility])[address] Eosinophils (Bld) [#/Vol] 0.3 10*3/uL Normal 0.0-0.5 [facility] Comment on above: Performed By: #### L [id number] ####[employer]a Automation Architect: HANS PAULSON ([id number])[facility] ([facility])[address] Eosinophils/100 WBC (Bld) 1.5 % Normal 0.0-6.0 [facility] Comment on above: Performed By: #### L [id number] ####[employer]a Automation Architect: HANS PAULSON ([id number])[facility] ([facility])[address] Erythrocyte distribution width (RBC) [Ratio] 13.0 % Normal 11.5-15.0 [facility] Comment on above: Performed By: #### L [id number] ####[employer] Automation Architect: HANS PAULSON ([id number])[facility] ([facility])[address] Hematocrit (Bld) [Volume fraction] 39.6 % Normal 35.0-47.[address] [facility] Comment on above: Performed By: #### L [id number] ####[employer]a Automation Architect: HANS PAULSON ([id number])[facility] ([facility])[address] Hemoglobin (Bld) [Mass/Vol] 12.7 g/dL Normal 11.7-16.[address] [facility] Comment on above: Performed By: #### L [id number] ####Qa Automation Architect: HANS PAULSON ([id number])[facility] ([facility] IMMATURE GRANS % 0.6 % Normal 0.0-2.0 [facility] Comment on above: Performed By: #### L [id number] ####Qa Automation Architect: HANS PAULSON ([id number])[facility] ([facility])[address] IMMATURE GRANS ABSOLUTE 0.1 10*3/uL High <0.[address] [facility] Comment on above: Performed By: #### L [id number] ####Qa Automation Architect: HANS PAULSON ([id number])[facility] ([facility])[address] Lymphocytes (Bld) [#/Vol] 1.3 10*3/uL Normal 1.0-4.[address] [facility] Comment on above: Performed By: #### L [id number] ####Qa Automation Architect: HANS PAULSON ([id number])[facility] [place] [address] Lymphocytes/100 WBC (Bld) 6.5 % Low 15.0-45.[address] [facility] Comment on above: Performed By: #### L [id number] ####Qa Automation Architect: HANS PAULSON ([id number])[facility] ([facility])[address] MCH (RBC) [Entitic mass] 30.4 pg Normal 26.0-34.[address] [facility] Comment on above: Performed By: #### L [id number] ####Qa Automation Architect: HANS PAULSON ([id number])[facility] ([facility])[address] MCHC 32.1 % Normal 30.5-36.0 [facility] Comment on above: Performed By: #### L [id number] ####[employer] Autom[employer] Architect: HANS BENJIEKimESCOBAR ([id number])[facility] ([facility])[address] MCV (RBC) [Entitic vol] 94.7 fL Normal 77.0-99.0 [facility] Comment on above: Performed By: #### L [id number] ####Qa Automation Architect: HANS LORENE ([id number])[facility] ([facility])[address] Monocytes (Bld) [#/Vol] 1.0 10*3/uL High 0.0-0.9 [facility] Comment on above: Performed By: #### L [id number] ####Qa Automation Architect: HANS LORENE ([id number])[facility] ([facility])[address] Monocytes/100 WBC (Bld) 5.1 % Normal 5.0-13.0 [facility] Comment on above: Performed By: #### L [id number] ####Qa Automation Architect: HANS LORENE ([id number])[facility] ([facility])[address] [place] [address] NEUTROPHILS ABSOLUTE 16.8 10*3/uL High 1.8-7.5 [facility] Comment on above: Performed By: #### L [id number] ####Qa Automation Architect: HANS WALDROPIVELISSE ([id number])[facility] ([facility])[address] Neutrophils/100 WBC (Bld) 86.1 % High 38.0-82.0 [facility] Comment on above: Performed By: #### L [id number] ####Qa Automation Architect: HANS WALDROPKimESCOBAR ([id number])[facility] ([facility])[address] NRBC 0.0 /100 WBCs Normal 0.0-2.0 [facility] Comment on above: Performed By: #### L [id number] ####Qa Automation Architect: HANS PAULSON ([id number])[facility] ([facility])[address] Platelet mean volume (Bld) [Entitic vol] 9.3 fL Normal 9.0-12.7 [facility] Comment on above: Performed By: #### L [id number] ####Qa Automation Architect: HANS PAULSON ([id number])[facility] ([facility])[address] Platelets (Bld) [#/Vol] 339 10*3/uL Normal 140-440 [facility] Comment on above: Performed By: #### L [id number] ####Qa Automation Architect: HANS PAULSON ([id number])[facility] ([facility])[address] RBC (Bld) [#/Vol] 4.18 10*6/uL Normal 3.80-5.20 [facility] Comment on above: Performed By: #### L [id number] ####Qa Automation Architect: HANS PAULSON ([id number])[facility] ([facility])[address] WBC (Bld) [#/Vol] 19.5 10*3/uL High 3.6-10.7 [facility] Comment on above: Performed By: #### L [id number] ####Qa Automation Architect: HANS PAULSON ([id number])[facility] ([facility])[address] COMPLETE URINALYSISon 2023 BACTERIA (#/HPF) IN URINE Negative Normal Negative [facility] Comment on above: Performed By: #### L [id number] ####Qa Automation Architect: HANS PAULSON ([id number])[facility] ([facility])[address] BILIRUBIN, TOTAL PRESENCE IN URINE Negative Normal Negative [facility] Comment on above: Performed By: #### L [id number] ####Qa Automation Architect: HANS PAULSON ([id number])[facility] ([facility])[address] Clarity (U) Clear Normal Clear [facility] Comment on above: Performed By: #### L [id number] ####Qa Automation Architect: HANS PAULSON ([id number])[facility] ([facility])[address] Color (U) Yellow Normal Lt. Yellow [facility] Comment on above: Performed By: #### L [id number] ####Qa Automation Architect: HANS PAULSON ([id number])[facility] ([facility])[address] GLUCOSE (MG/DL) IN URINE Normal Normal Normal (<70 ) [facility] Comment on above: Performed By: #### L [id number] ####Qa Automation Architect: HANS PAULSON ([id number])[facility] ([facility])[address] HEMOGLOBIN PRESENCE IN URINE Negative Normal Negative [facility] Comment on above: Performed By: #### L [id number] ####Qa Automation Architect: HANS PAULSON ([id number])[facility] ([facility])[address] HYALINE CASTS (#/LPF) IN URINE SEDIMENT BY MICROSCOPY 3-5 Abnormal Negative [facility] Comment on above: Performed By: #### L [id number] ####Qa Automation Architect: HANS PAULSON ([id number])[facility] ([facility])[address] [place] [address] [place] Ketones Ql (U) Negative Normal Negative [facility] Comment on above: Performed By: #### L [id number] ####Qa Automation Architect: HANS PAULSON ([id number])[facility] ([facility])[address] LEUKOCYTE ESTERASE PRESENCE IN URINE BY TEST STRIP Negative Normal Negative [facility] Comment on above: Performed By: #### L [id number] ####Qa Automation Architect: HANS WALDROPKimESCOBAR ([id number])[facility] ([facility])[address] MUCUS (#/LPF) IN URINE SEDIMENT Few Normal Negative [facility] Comment on above: Performed By: #### L [id number] ####Qa Automation Architect: HANS PAULSON ([id number])[facility] ([facility])[address] NITRITE PRESENCE IN URINE Negative Normal Negative [facility] Comment on above: Performed By: #### L [id number] ####Qa Automation Architect: HANS ALCANTARESCOBAR ([id number])[facility] ([facility] [place] [address] [place] NON-SQUAMOUS EPITHELIAL (#/HPF) IN URINE 0-2 Abnormal Negative [facility] Comment on above: Performed By: #### L [id number] ####Qa Automation Architect: HANS PAULSON ([id number])[facility] ([facility])[address] pH (U) 5.5 [pH] Normal 5.0-8.[address] [facility] Comment on above: Performed By: #### L [id number] ####Qa Automation Architect: HANS PAULSON ([id number])[facility] ([facility])[address] [place] [address] [place] Protein (U) [Mass/Vol] 20 mg/dL Abnormal Negative [facility] Comment on above: Performed By: #### L [id number] ####Qa Automation Architect: HANS PAULSON ([id number])[facility] ([facility])[address] [place] [address] [place] RBC (#/HPF) IN URINE SEDIMENT 0-2 Normal 0-[address] [facility] Comment on above: Performed By: #### L [id number] ####Qa Automation Architect: HANS PAULSON ([id number])[facility] ([facility])[address] Specific gravity (U) [Rel density] 1.018 Normal 1.005-1.[address] [facility] Comment on above: Performed By: #### L [id number] ####Qa Automation Architect: HANS PAULSON ([id number])[facility] ([facility])[address] SQUAMOUS EPITHELIAL CELLS (#/HPF) IN URINE SEDIMENT 0-2 Normal 3-[address] [facility] Comment on above: Performed By: #### L [id number] ####Qa Automation Architect: HANS PAULSON ([id number])[facility] ([facility])[address] UROBILINOGEN (MG/DL) IN URINE Normal Normal Normal (0-1) [facility] Comment on above: Performed By: #### L [id number] ####Qa Automation Architect: HANS PAULSON ([id number])[facility] ([facility])[address] WBC (LEUKOCYTE) (#/HPF) IN URINE SEDIMENT 3-5 Normal 0-[address] [facility] Comment on above: Performed By: #### L [id number] ####Qa Automation Architect: HANS PAULSON ([id number])[facility] ([facility])[address] COMPREHENSIVE METABOLIC PANE Cory 09-19-2023 Albumin [Mass/Vol] 3.9 g/dL Normal 3.5-5.[address] [facility] Comment on above: Performed By: #### L [id number], [id number] ####Qa Automation Architect: HANS PAULSON ([id number])[facility] ([facility])[address] ALP [Catalytic activity/Vol] 115 U/L Normal 38-[address] [facility] Comment on above: Performed By: #### L [id number], LAB17 ####Qa Automation Architect: HANS PAULSON ([id number])[facility] ([facility])[address] ALT [Catalytic activity/Vol] 38 U/L High 0-34 [facility] Comment on above: Performed By: #### L [id number], LAB17 ####Qa Automation Architect: HANS PAULSON ([id number])[facility] ([facility])[address] Anion gap [Moles/Vol] 13 mmol/L Normal 3-13 [facility] Comment on above: Performed By: #### L [id number], LAB17 ####Qa Automation Architect: HANS PAULSON ([id number])[facility] ([facility])[address] AST [Catalytic activity/Vol] 35 U/L Normal 15-46 [facility] Comment on above: Performed By: #### L [id number], LAB17 ####Qa Automation Architect: HANS PAULSON ([id number])[facility] ([facility])[address] Bilirubin [Mass/Vol] 0.5 mg/dL Normal 0.2-1.3 [facility] Comment on above: Performed By: #### L [id number], LAB17 ####Qa Automation Architect: HANS PAULSON ([id number])[facility] Calcium [Mass/Vol] 9.0 mg/dL Normal 8.4-10.[address] [facility] Comment on above: Performed By: #### L [id number], [id number] ####Qa Automation Architect: HANS PAULSON ([id number])[facility] ([facility])[address] Chloride [Moles/Vol] 93 mmol/L Low 98-107 [facility] Comment on above: Performed By: #### L [id number], LAB17 ####Qa Automation Architect: HANS PAULSON ([id number])[facility] ([facility])[address] [place] [address] [place] CO2 [Moles/Vol] 35 mmol/L High 22-30 [facility] Comment on above: Performed By: #### L [id number], LAB17 ####Qa Automation Architect: HANS PAULSON ([id number])[facility] ([facility])[address] Creatinine [Mass/Vol] 1.33 mg/dL High 0.52-1.04 [facility] Comment on above: Performed By: #### L [id number], LAB17 ####Qa Automation Architect: HANS PAULSON ([id number])[facility] ([facility])[address] GLOMERULAR FILTRATION RATE ML/MIN/1.73 SQ M.PREDICTED 44.2 mL/min/1.73m*2 Low >60.0 [facility] Comment on above: Result Comment: Calc ulation based on the Chronic Kidney Disease Epidemiology Collaboration (CKD-EPI) equation refit without adjustment for race Performed By: #### L [id number], [id number] ####Qa Automation Architect: HANS PAULSON ([id number])[facility] ([facility])[address] Glucose [Mass/Vol] 99 mg/dL Normal 70-100 [facility] Comment on above: Performed By: #### L [id number], LAB17 ####Qa Automation Architect: HANS PAULSON ([id number])[facility] ([facility])[address] [place] [address] [place] Potassium [Moles/Vol] 2.3 mmol/L Critically low 3.5-5.1 [facility] Comment on above: Performed By: #### L [id number], LAB17 ####Qa Automation Architect: HANS PAULSON ([id number])[facility] ([facility])[address] Protein [Mass/Vol] 7.1 g/dL Normal 6.3-8.2 [facility] Comment on above: Performed By: #### L [id number], LAB17 ####Qa Automation Architect: HANS LORENE ([id number])[facility] ([facility])[address] Sodium [Moles/Vol] 140 mmol/L Normal 135-145 [facility] Comment on above: Performed By: #### L [id number], LAB17 ####Qa Automation Architect: HANS WALDROPIVELISSE ([id number])[facility] ([facility])[address] Urea nitrogen [Mass/Vol] 36 mg/dL High 7-17 [facility] Comment on above: Performed By: #### L [id number], LAB17 ####Qa Automation Architect: HANS ALCANTARESCOBAR ([id number])[facility] ([facility])[address] [place] [address] [place] CERVICAL SPINE WO IV CONT RASTon 09-19-2023 CT CERVICAL SPINE WO IV CONTRAST Normal [facility] CT Cervical spine WO contras ton 09-19-2023 Patient Name: GONZALO DELUCA : 1955 [facility]#: [id number] Exam Date/Time: 09/19/2023 17:44 Procedure: CT CERVICAL [...] 09/19/2023 Patient Name: GONZALO DELUCA : 1955 [facility]#: [id number] Exam Date/Time: 09/19/2023 17:44 Procedure: CT CERVICAL [...] Date/Time: 09/19/2023 6:01 PM EDT [facility] CT HEAD WO IV CONTRASTon CT HEAD WO IV CONTRAST Normal [facility] CT Head WO contraston 2023 No intracranial traumatic injuries. Report Dictated on Electronically Signed By: Brando Tejada MD Electronically Signed Date/Time: 09/19/2023 5:55 PM EDT [facility] [employer] [facility] 1955 [id number] Exam Date/Time: 09/19/2023 17:43 Procedure: CT HEAD [...] banding. Clear paranasal sinuses. No calvarial fractures. [facility] [employer] [facility] Brando Tejada M D - 09/19/2023 Patient [...] Electronically Signed Date/Time: 09/19/2023 5:55 PM EDT [facility] CT Head WO contrastOrdered B y: Brando Tejada on 09-19-2023 [employer] Work Phone: CT THORACIC SPINE WO IV CONT RASTon 09-19-2023 CT THORACIC SPINE WO IV CONTRAST Normal [facility] CT Thoracic spine WO contras ton 09-19-2023 [...] 09/19/2023 Patient Name: GONZALO DELUCA : 1955 [facility]#: [id number] Exam Date/Time: 09/19/2023 17:48 Procedure: CT THORACIC [...] Date/Time: 09/19/2023 6:01 PM EDT [facility] Radiology Study observation (narrative) [facility] metabolic 1998 panelOrdered By: Mara Hale on 09-19-2023 Albumin [Mass/Vol] 3.9 g/dL 3.5 - 5.0 g/dL [facility] ALP [Catalytic activity/Vol] 115 U/L 38 - 126 U/L [facility] ALT [Catalytic activity/Vol] 38 U/L High 0 - 34 U/L [facility] Anion gap [Moles/Vol] 13 mmol/L 3 - 13 mmol/L [facility] AST [Catalytic activity/Vol] 35 U/L 15 - 46 U/L [facility] Bilirubin [Mass/Vol] 0.5 mg/dL 0.2 - 1 .3 mg/dL [facility] Calcium [Mass/Vol] 9.0 mg/dL 8.4 - 10. 4 mg/dL [facility] Chloride [Moles/Vol] 93 mmol/L Low 98 - 10 7 mmol/L [facility] CO2 [Moles/Vol] 35 mmol/L High 22 - 30 mmol/L [facility] Creatinine [Mass/Vol] 1.33 mg/dL High 0.52 - 1.04 mg/dL [facility] GFR/1.73 sq M.predicted MDRD (S/P/Bld) [Vol rate/Area] 44.2 mL/min/{1.73_m2} Low - PINF [facility] Comment on above: Calculation based on the Chronic Kidney Disease Epidemiology Collaboration (CKD-EPI) equation refit without adjustment for race Glucose [Mass/Vol] 99 mg/dL 70 - 100 mg/dL [facility] Interpretation and review of laboratory results Abnormal [facility] Potassium [Moles/Vol] 2.3 mmol/L Critically low 3.5 - 5.1 mmol/L [facility] Protein [Mass/Vol] 7.1 g/dL 6.3 - 8.2 g/dL [facility] Sodium [Moles/Vol] 140 mmol/L 135 - 145 mmol/L [facility] Urea nitrogen [Mass/Vol] 36 mg/dL High 7 - 17 mg/d L [facility] ECG 12-LEADon 09-19-2023 ECG 12-LEAD IMPRESSION: Sinus rhythm Inferior infarct, old Prolonged QT interval No significant changes compared to previous Electronically Signed On 09-19-2023 18:04:00 EDT by Jono Weathers Normal [facility] ED Nursing Noteon 09-19-2023 ED Nursing Note Floor advised of pt coming to floor. Elizabeth Garzon, EMT 09/19/23 194 Normal [facility] ED Nursing Note Pt provided with a toni laurie and chicken salad sandwich. Elizabeth Garzon, VERA 09/19/23 1940 Normal [facility] ED Nursing Note Pt on 2lpm of oxygen . Pt 89% on room air. Oxygen increased to 3lpm. Elizabeth Garzon, EMT 09/19/23 1732 Normal [facility] ED Nursing Note Pt to radiology. VERA Brown 09/19/23 1711 Normal [facility] ED Provider Noteon ED Provider Note Normal [facility] Laboratory - Chemistry and C hemistry - challengeon 09-19-2023 Troponin I.cardiac [Mass/Vol] 0.031 ng/mL [facility] - 0.034 ng/mL [facility] Troponin I.cardiac [Mass/Vol] 0.025 ng/mL [facility] - 0.034 ng/mL [facility] Laboratory - Chemistry and C hemistry - challengeOrdered By: Rosa Elena Puente on 09-19-2023 Base excess Calc (BldV) [Moles/Vol] 4.1 mmol/L High -3.0 - 3.0 mmol/L [facility] CO2 (BldV) [Partial pressure] 49.6 mm[Hg] [facility] CO2 [Moles/Vol] 31.4 mmol/L High 23.0 - 30.0 mmol/L [facility] HCO3 (Bld) [Moles/Vol] 29.9 mmol/L 21.0 - 30.0 mmol/L [facility] Oxygen (BldV) [Partial pressure] 50.1 mm[Hg] mm Hg [facility] pH (BldV) 7.398 [pH] 7.320 - 7.420 [facility] Laboratory - Hematology and Cell countsOrdered By: Rosa Elena Puente on 09-19-2023 Hemoglobin (Bld) [Mass/Vol] 13.4 g/dL Screen only [facility] MAGNESIUMon 09-19-2023 Magnesium [Mass/Vol] 2.7 mg/dL High 1.6-2.3 [facility] Comment on above: Performed By: #### L [id number], [id number] ####Qa Automation Architect: HANS PAULSON ([id number])[facility] ([facility])[address] [place] [address] No Panel InformationOrdered By: Rosa Elena Puente on 09-19-2023 Interpretation and review of laboratory results Abnormal [facility] Source Of Oxygen Nasal cannula [facility] Assessment of oxygenation is best done with an arterial blood gas determination. Reference ranges for pO2, bicarbonate, and base excess are for mixed venous blood. Specimens drawn from a peripheral vein will often have higher values. [facility] No Panel Informationon 09-18 P Momence 25 degrees [facility] MS Interval 140 ms [facility] QRS Momence -48 degrees [facility] QRSD [facility]val 468 ms [facility] QTC Interval 594 ms [facility] T Wave Momence 0 degrees [facility] Sinus rhythm Inferior infarct, old Prolonged QT interval No significant changes compared to previous Electronically Signed On 09-19-2023 18:04:00 EDT by Jono Weathers CV Jono Viramontes MD - 09/19/2023 IMPRESSION: Sinus rhythm Inferior infarct, old Prolonged QT interval No significant changes compared to previous Electronically Signed On 09-19-2023 18:04:00 EDT by Jono Weathers [facility] Impression: No acute osseous abnormality. Nonspecific sclerotic [...] MD Electronically Signed Date/Time: 09/19/2023 6:01 PM [facility] Radiographic feature s suggestive of COPD. Compression [...] MD Electronically Signed Date/Time: 09/19/2023 5:26 PM [facility] Radiology Study observation (narrative) [facility] alth No Panel InformationOrdered By: Clark Duffy on 09-19-2023 [facility] Work Phone: Nursing Noteon 09-19-2023 Nursing Note Normal [facility] Nursing Note Patient arrived from er to room 463 bed 2. Patient is alert and oriented. Realized patient required private room bed coordinator notified. Will be transferred when bed available. Normal [facility] TROPONIN Ion 09-19-2023 Troponin I.cardiac [Mass/Vol] 0.031 ng/mL Normal <0.034 [facility] Comment on above: Result Comment: KYM Gilmore COMMENTS:Patients with high levels of Biotin oral intake (ie >5 mg/day) may have falsely decreased Troponin levels. Performed By: #### L [id number], [id number] ####[employer] Architect: HANS PAULSON ([id number])[facility] ([facility])[address] [place] [address] TROPONIN, WITH SERIAL REFLEX on 09-19-2023 Troponin I.cardiac [Mass/Vol] 0.025 ng/mL Normal <0.034 [facility] Comment on above: Result Comment: KYM Gilmore COMMENTS:Patients with high levels of Biotin oral intake (ie >5 mg/day) may have falsely decreased Troponin levels. Performed By: #### L [id number], [id number] ####[employer] Architect: HANS PAULSON ([id number])[facility] ([facility])[address] [place] [address] Troponin I.cardiac [Mass/Vol ]on 09-19-2023 Interpretation and review of laboratory results Normal [facility] Patients with high levels of Biotin oral intake (ie >5 mg/day) may have falsely decreased Troponin levels. [facility] Interpretation and review of laboratory results Normal [facility] Patients with high levels of Biotin oral intake (ie >5 mg/day) may have falsely decreased Troponin levels. [facility] Urinalysis complete panel (U )Ordered By: Chrissy Alexadnra on 09-19-2023 Bacteria LM.HPF (Urine sed) [#/Area] Negative Negative /HPF [facility] Bilirubin Ql (U) Negative Negative mg/dL [facility] Clarity (U) Clear Clear [facility] Color (U) Yellow Lt. Yellow [facility] Epithelial cells.squamous LM.HPF (Urine sed) [#/[facility] ([facility]) Normal Normal (<70) mg/dL [facility] Hemoglobin Ql (U) Negative Negative mg/dL [facility] Hyaline casts Auto (Urine sed) [#/Area] 3-5 Abnormal Negative /LPF [facility] Interpretation and review of laboratory results Abnormal [facility] Ketones (U) [Mass/Vol] Negative Negat kenton mg/dL [facility] Leukocyte esterase Test strip Ql (U) Negative Negative Sandra/uL [facility] Mucus LM.HPF (Urine sed) [#/Area] Few Negative /LPF [facility] Nitrite Ql (U) Negative Negative [facility] Non-Squamous Epithalial Cells, Urine 0-2 Abnormal Negative /HPF [facility] pH (U) 5.5 [pH] 5.0 - 8.0 pH [facility] Protein (U) [Mass/Vol] 20 mg/dL Abnormal Negative [facility] RBC LM.HPF (Urine sed) [#/Area] 0-2 [facility] Specific gravity (U) [Rel density] 1.018 1.005 - 1.030 [facility] Urobilinogen (U) [Mass/Vol] Normal Normal (0-1) mg/dL [facility] WBC LM.HPF (Urine sed) [#/Area] 3-5 [facility] Vital signsOrdered By: Rosa Elena Puente on 09-19-2023 Oxygen saturation in Venous blood 85.8 % [facility] Vital signson 09-19-2023 Heart rate 97 /min bpm [facility] XR Chest 2 Viewson Patient Name: GONZAOL DELUCA : 1955 Exam Date/Time: 09/19/2023 17:25 [...] in the midthoracic region with thoracic kyphosis. [facility] Clark Duffy MD - 09/19/2023 Patient [...] Date/Time: 09/19/2023 5:26 PM EDT [facility] Radiology Study observation (narrative) [facility] alth XR Pelvis 1 or 2 Viewson [...] in the midthoracic region with thoracic kyphosis. [facility] Clark Duffy MD - 09/19/2023 [facility] Name[facility] 1955 [id number] Ex[facility] Date/Time: 09/19/2023 17:24 Procedure: XR PELVIS [...] Date/Time: 09/19/2023 5:26 PM EDT [facility] Radiology Study observation (narrative) Abe Abraham 09-08-2023 CNOV Office Visit (FAMDNA ) GONZALO DELUCA ([id number]) 1955 F Date Time Provider Department 09/08/23 [...] Mirtazapine (REMER (more content not included)... Normal [facility] GONZ[facility] DELUCA ([id number]) 1955 F Date Time Provider Department 09/06/23 HERMINIA CASE During your visit today, we recorded the following information about you: Lala Shelley 09/06/2023 12:30 PM Signed Gonzalo is calling Herminia Case MD today with concern regarding Electronic Communication (FAX from [facility] is going to be coming over that needs to be faxed back to them ) Patient has been identified by name and birthdate. Duration of symptoms: N/A Person calling: self daughter: Karishma Call patient at: at home [phone] (home) [phone] (cell) Was an appointment scheduled: No Closing statement: Results or non-symptom based questions: Thank you for calling [facility], your call will be returned within the next business day. Lala MckeonWhit Zimmerman LPN 09/07/2023 9:05 AM Signed LM for patient letting her know we have not received the form from [facility]. Whit Shay LPN Allergies As of Date: 09/06/2023 Noted Allergy Reaction SEASONAL ALLERGIES 08/16/2017 5 - Intolerance Date Reviewed: 05/02/2023 Reviewed by: Whit Shay LPN - Fully Assessed Reason for Visit: Electronic Communication [890] Cmt: FAX from [facility] is going to be coming over that [...] Status:Closed by WHIT SHAY on 09/07/23 Normal [facility] CBC W Auto Differential pane l (Bld)on 08-07-2023 Basophils (Bld) [#/Vol] 0.0 10*3/uL 0.0 - 0.2 10*3/uL [facility] Basophils/100 WBC (Bld) 0.3 % 0.0 - 2.0 % [facility] Eosinophils (Bld) [#/Vol] 0.1 10*3/uL 0.0 - 0.5 10*3/uL [facility] Eosinophils/100 WBC (Bld) 0.8 % 0.0 - 6.0 % [facility] Erythrocyte distribution width (RBC) [Ratio] 12.6 % 11.5 - 15.0 % [facility] Hematocrit (Bld) [Volume fraction] 39.2 % 35.0 - 47.0 % [facility] Hemoglobin (Bld) [Mass/Vol] 12.6 g/dL 11.7 - 16.0 g/dL [facility] Immature granulocytes (Bld) [#/Vol] 0.1 10*3/uL High NINF - 0.1 10*3/uL [facility] Immature granulocytes/100 WBC (Bld) 0.5 % 0.0 - 2.0 % [facility] Interpretation and review of laboratory results Abnormal [facility] Lymphocytes (Bld) [#/Vol] 1.0 10*3/uL 1.0 - 4.3 10*3/uL [facility] Lymphocytes/100 WBC (Bld) 9.6 % Low 15.0 - 45.0 % [facility] MCH (RBC) [Entitic mass] 30.9 pg 26. 0 - 34.0 pg [facility] MCHC (RBC) [Mass/Vol] 32.1 % 30.5 - 36.0 % [facility] MCV (RBC) [Entitic vol] 96.1 fL 77.0 - 99.0 fL [facility] Monocytes (Bld) [#/Vol] 1.3 10*3/uL High 0.0 - 0.9 10*3/uL [facility] Monocytes/100 WBC (Bld) 12.9 % 5.0 - 13.0 % [facility] Neutrophils (Bld) [#/Vol] 7.8 10*3/uL High 1.8 - 7.5 10*3/uL [facility] Neutrophils/100 WBC (Bld) 75.9 % 38.0 - 82.0 % [facility] Nucleated RBC/100 WBC (Bld) [Ratio] 0.0 % [facility] Platelet mean volume (Bld) [Entitic vol] 9.8 fL 9.0 - 12.7 fL [facility] Platelets (Bld) [#/Vol] 351 10*3/uL 140 - 440 10*3/uL [facility] RBC (Bld) [#/Vol] 4.08 10*6/uL 3.80 - 5.2 0 10*6/uL [facility] WBC (Bld) [#/Vol] 10.3 10*3/uL 3.6 - 10.7 10*3/uL [facility] COVID-19, Flu A/B, and RSV C omboon 08-07-2023 Interpretation and review of laboratory results Normal [facility] Comprehensive metabolic 1998 panelon 08-07-2023 Albumin [Mass/Vol] 4.0 g/dL 3.5 - 5.0 g/dL [facility] ALP [Catalytic activity/Vol] 282 U/L High 38 - 126 U/L [facility] ALT [Catalytic activity/Vol] 47 U/L High 0 - 34 U/L [facility] Anion gap [Moles/Vol] 11 mmol/L 3 - 13 mmol/L [facility] AST [Catalytic activity/Vol] 62 U/L High 15 - 46 U/L [facility] Bilirubin [Mass/Vol] 1.1 mg/dL 0.2 - 1 .3 mg/dL [facility] Calcium [Mass/Vol] 9.2 mg/dL 8.4 - 10. 4 mg/dL [facility] Chloride [Moles/Vol] 96 mmol/L Low 98 - 10 7 mmol/L [facility] CO2 [Moles/Vol] 35 mmol/L High 22 - 30 mmol/L [facility] Creatinine [Mass/Vol] 0.57 mg/dL 0.52 - 1.04 mg/dL [facility] GFR/1.73 sq M.predicted MDRD (S/P/Bld) [Vol rate/Area] - PINF [facility] Comment on above: Calculation based on the Chronic Kidney Disease Epidemiology Collaboration (CKD-EPI) equation refit without adjustment for race Glucose [Mass/Vol] 119 mg/dL High 70 - 100 mg/dL [facility] Interpretation and review of laboratory results Abnormal [facility] Potassium [Moles/Vol] 3.1 mmol/L Low 3.5 - 5.1 mmol/L [facility] Protein [Mass/Vol] 7.9 g/dL 6.3 - 8.2 g/dL [facility] Sodium [Moles/Vol] 142 mmol/L 135 - 145 mmol/L [facility] Urea nitrogen [Mass/Vol] 10 mg/dL 7 - 17 mg/d L [facility] CHEMISTRY SPECIMEN MODERATELY HEMOLYZED; INTERPRET WITH CAUTION! [facility] Laboratory - Chemistry and C hemistry - challengeon 08-07-2023 Lactate [Moles/Vol] 2.0 mmol/L 0.7 - 2. 0 mmol/L [facility] Laboratory - Microbiology an d Antimicrobial susceptibilityon 08-07-2023 FLUAV RNA MILANA+probe Ql (Resp) Not detected Not Detected [facility] FLUBV RNA MILANA+probe Ql (Resp) Not detected Not Detected [facility] RSV RNA MILANA+probe Ql (Resp) Not detected Not Detected [facility] SARS-CoV-2 (COVID-19) RNA MILANA+probe Ql (Resp) Not detected Not Detected [facility] SARS-CoV-2 (COVID-19) RNA MILANA+probe Ql (Unsp spec) Methodology: real-time, RT-PCR The SARS-CoV-2, Flu A/B, and RSV Combo assay is intended for in vitro diagnostic use under the FDA Emergency Use Authorization (EUA). This test has not been FDA cleared or approved. In compliance with this authorization, please visit www.fda.gov/media/8558 35/download or www.fda.gov/media/9492 36/download to access the applicable information sheets. [facility] No Panel Informationon 08-06 Interpretation and review of laboratory results Normal [facility] P Momence 38 degrees [facility] MS Interval 137 ms [facility] QRS Momence -35 degrees [facility] QRSD Interval 95 ms [facility] QT Interval 246 ms [facility] QTC Interval 299 ms [facility] T Wave Momence 0 degrees [facility] Sinus rhythm Inferior infarct, old Electronically Signed On 08-07-2023 15:06:03 EDT by Lorenzo Orozco CV Lorenzo Cheng MD - 08/07/2023 IMPRESSION: Sinus rhythm Inferior infarct, old Electronically Signed On 08-07-2023 15:06:03 EDT by Lorenzo Orozco [facility] Vital signson 08-07-2023 Heart rate 89 /min bpm [facility] XR Chest Single viewon 08-06 1. [...] Electronically Signed Date/Time: 08/07/2023 4:05 PM EDT [facility] Patient Name: GONZALO DELUCA : 1955 Exam Date/Time: 08/07/2023 15:54 Procedure: XR CHEST 1 VIEW Ordering Provider: SOLIZ AMY Reason For Exam: COUGH EXAM TYPE: RADIOLOGIC EXAMINATION, CHEST, SINGLE VIEW FRONTAL (CXR SINGLE VIEW) EXAM DATE AND TIME: 08/07/2023 3:54 PM EDT INDICATION: Respiratory distress COMPARISON: 11/06/2022 TECHNIQUE: A single frontal view of the thorax was obtained and reviewed. Special views: None. [facility] Ramses Gamble MD - 08/07/2023 Patient [...] Date/Time: 08/07/2023 4:05 PM EDT [facility] Radiology Study observation (narrative) [facility] Maxi alth XR Chest Single viewOrdered By: Ramses Gamble on 08-07-2023 [facility] Work Phone: TOX SCREEN ROUT URon 024 Amphetamines Confirm (U) [Mass/Vol] Negative Negative [facility] Barbiturates Urine Negative Negative [facility] Benzodiazepines Urine Negative Negative [facility] Cannabinoids Screen Ql (U) Positive Abnormal Negative [facility] Cocaine Ql (U) Negative Negative [facility] Ethanol (U) [Mass/Vol] <11 mg/dL Cl [facility] Opiates Screen Ql (U) Negative Negative [facility] oxyCODONE cutoff Screen (U) [Mass/Vol] Positive Abnormal Negative [facility] Phencyclidine Ql (U) Negative Negative [facility] Basic metabolic 1998 panelon 02-18-2023 Anion gap [Moles/Vol] 5 mmol/L 3 - 13 mmol/L [facility] Calcium [Mass/Vol] 8.2 mg/dL Low 8.4 - 10. 4 mg/dL [facility] Chloride [Moles/Vol] 107 mmol/L 98 - 10 7 mmol/L [facility] CO2 [Moles/Vol] 28 mmol/L 22 - 30 mmol/L [facility] Creatinine [Mass/Vol] 0.55 mg/dL 0.52 - 1.04 mg/dL [facility] GFR/1.73 sq M.predicted MDRD (S/P/Bld) [Vol rate/Area] - PINF [facility] Comment on above: Calculation based on the Chronic Kidney Disease Epidemiology Collaboration (CKD-EPI) equation refit without adjustment for race Glucose [Mass/Vol] 113 mg/dL High 70 - 100 mg/dL [facility] Interpretation and review of laboratory results Abnormal [facility] Potassium [Moles/Vol] 3.8 mmol/L 3.5 - 5.1 mmol/L [facility] Sodium [Moles/Vol] 140 mmol/L 135 - 145 mmol/L [facility] Urea nitrogen [Mass/Vol] 14 mg/dL 7 - 17 mg/d L [facility] CBC W Auto Differential pane l (Bld)Ordered By: Yair Sanchez on 02-18-2023 Basophils (Bld) [#/Vol] 0.0 10*3/uL 0.0 - 0.2 10*3/uL [facility] Basophils/100 WBC (Bld) 0.7 % 0.0 - 2.0 % [facility] Eosinophils (Bld) [#/Vol] 0.4 10*3/uL 0.0 - 0.5 10*3/uL [facility] Eosinophils/100 WBC (Bld) 7.3 % High 1.0 - 6.0 % [facility] Erythrocyte distribution width (RBC) [Ratio] 14.0 % 11.5 - 14.5 % [facility] Hematocrit (Bld) [Volume fraction] 30.7 % Low 35.0 - 47.0 % [facility] Hemoglobin (Bld) [Mass/Vol] 10.0 g/dL Low 11.7 - 16.0 g/dL [facility] Interpretation and review of laboratory results Abnormal [facility] Lymphocytes (Bld) [#/Vol] 0.8 10*3/uL Low 1.0 - 4.3 10*3/uL [facility] Lymphocytes/100 WBC (Bld) 15.3 % Low 20.0 - 40.0 % [facility] MCH (RBC) [Entitic mass] 31.1 pg 26. 0 - 34.0 pg [facility] MCHC (RBC) [Mass/Vol] 32.7 % 32.0 - 36.0 % [facility] MCV (RBC) [Entitic vol] 95.1 fL 80.0 - 98.0 fL [facility] Monocytes (Bld) [#/Vol] 0.4 10*3/uL 0.0 - 0.8 10*3/uL [facility] Monocytes/100 WBC (Bld) 8.6 % 2.0 - 10.0 % [facility] Neutrophils (Bld) [#/Vol] 3.5 10*3/uL 1.8 - 7.0 10*3/uL [facility] Neutrophils/100 WBC (Bld) 68.1 % 40.0 - 80.0 % [facility] Nucleated RBC/100 WBC (Bld) [Ratio] 0.0 % [facility] Platelet mean volume (Bld) [Entitic vol] 7.3 fL Low 7.4 - 12.4 fL [facility] Platelets (Bld) [#/Vol] 178 10*3/uL 140 - 440 10*3/uL [facility] RBC (Bld) [#/Vol] 3.23 10*6/uL Low 3.8 - 5.20 10*6/uL [facility] WBC (Bld) [#/Vol] 5.1 10*3/uL 3.6 - 10.7 10*3/uL [facility] Laboratory - Microbiology an d Antimicrobial susceptibilityOrdered By: Savanna Cerrato on 02-18-2023 SARS-CoV-2 (COVID-19) Ag IA.rapid Ql (Resp) Negative Negative [facility] Comment on above: A negative result do es not rule out the possibility of SARS-CoV-2 infection. NAAT-based methods should be considered for symptomatic patients presenting greater than seven days after onset of symptoms. Method: Lateral flow immunoassay. Fact sheets for healthcare providers and patients can be found at the following sites: https://www.fda.gov/media/681160/download https://www.raksul.gov/media/011617/download SARS-CoV-2 (COVID-19) Ag IA. rapid Ql (Resp)Ordered By: Savanna Cerrato on 02-18-2023 Interpretation and review of laboratory results Normal [facility] Basic metabolic 1998 panelon 02-17-2023 Anion gap [Moles/Vol] 7 mmol/L 3 - 13 mmol/L [facility] Calcium [Mass/Vol] 8.5 mg/dL 8.4 - 10. 4 mg/dL [facility] Chloride [Moles/Vol] 106 mmol/L 98 - 10 7 mmol/L [facility] CO2 [Moles/Vol] 28 mmol/L 22 - 30 mmol/L [facility] Creatinine [Mass/Vol] 0.49 mg/dL Low 0.52 - 1.04 mg/dL [facility] GFR/1.73 sq M.predicted MDRD (S/P/Bld) [Vol rate/Area] - PINF [facility] Comment on above: Calculation based on the Chronic Kidney Disease Epidemiology Collaboration (CKD-EPI) equation refit without adjustment for race Glucose [Mass/Vol] 115 mg/dL High 70 - 100 mg/dL [facility] Interpretation and review of laboratory results Abnormal [facility] Potassium [Moles/Vol] 3.7 mmol/L 3.5 - 5.1 mmol/L [facility] Sodium [Moles/Vol] 141 mmol/L 135 - 145 mmol/L [facility] Urea nitrogen [Mass/Vol] 14 mg/dL 7 - 17 mg/d L [facility] NM Bone Limited Viewson 11-3 Moderately intense [...] Electronically Signed Date/Time: 02/17/2023 4:36 PM EST [employer] Patient Name: GONZALO DELUCA : 1955 Exam Date/Time: 02/17/2023 10:41 Procedure: NM BONE [...] of the lumbar spine. [facility] Lamoda Raul Farmer MD - 02/17/2023 Patient Name: [facility]ALO [facility]CA : 1955 [id number] Exam Date/Time: 02/17/2023 10:41 Procedure: NM BONE [...] Date/Time: 02/17/2023 4:36 PM EST [facility] Radiology Study observation (narrative) [facility] NM Bone Limited ViewsOrdered By: Raul Farmer on 02-17-2023 [facility] Basic metabolic 1998 panelon 02-16-2023 Anion gap [Moles/Vol] 2 mmol/L Low 3 - 13 mmol/L [facility] Calcium [Mass/Vol] 8.3 mg/dL Low 8.4 - 10. 4 mg/dL [facility] Chloride [Moles/Vol] 105 mmol/L 98 - 10 7 mmol/L [facility] CO2 [Moles/Vol] 32 mmol/L High 22 - 30 mmol/L [facility] Creatinine [Mass/Vol] 0.58 mg/dL 0.52 - 1.04 mg/dL [facility] GFR/1.73 sq M.predicted MDRD (S/P/Bld) [Vol rate/Area] [facility] Comment on above: Calculation based on the Chronic Kidney Disease Epidemiology Collaboration (CKD-EPI) equation refit without adjustment for race Glucose [Mass/Vol] 117 mg/dL High 70 - 100 mg/dL [facility] Interpretation and review of laboratory results Abnormal [facility] Potassium [Moles/Vol] 3.3 mmol/L Low 3.5 - 5.1 mmol/L [facility] Sodium [Moles/Vol] 139 mmol/L 135 - 145 mmol/L [facility] Urea nitrogen [Mass/Vol] 16 mg/dL 7 - 17 mg/d L [facility] Laboratory - Chemistry and C hemistry - challengeon 02-16-2023 Magnesium [Mass/Vol] 1.9 mg/dL 1.6 - 2 .3 mg/dL [facility] Magnesium [Mass/Vol]on 02-16 Interpretation and review of laboratory results Normal [facility] Basic metabolic 1998 panelon 02-15-2023 Anion gap [Moles/Vol] 6 mmol/L 3 - 13 mmol/L [facility] Calcium [Mass/Vol] 8.4 mg/dL 8.4 - 10. 4 mg/dL [facility] Chloride [Moles/Vol] 104 mmol/L 98 - 10 7 mmol/L [facility] CO2 [Moles/Vol] 28 mmol/L 22 - 30 mmol/L [facility] Creatinine [Mass/Vol] 0.52 mg/dL 0.52 - 1.04 mg/dL [facility] GFR/1.73 sq M.predicted MDRD (S/P/Bld) [Vol rate/Area] - [facility] Comment on above: Calculation based on the Chronic Kidney Disease Epidemiology Collaboration (CKD-EPI) equation refit without adjustment for race Glucose [Mass/Vol] 91 mg/dL 70 - 100 mg/dL [facility] Interpretation and review of laboratory results Abnormal [facility] Potassium [Moles/Vol] 3.2 mmol/L Low 3.5 - 5.1 mmol/L [facility] Sodium [Moles/Vol] 138 mmol/L 135 - 145 mmol/L [facility] Urea nitrogen [Mass/Vol] 15 mg/dL 7 - 17 mg/d L [facility] CBC panel Auto (Bld)Ordered By: Rosa Ruiz on 02-15-2023 Erythrocyte distribution width (RBC) [Ratio] 13.8 % 11.5 - 14.5 % [facility] Hematocrit (Bld) [Volume fraction] 31.2 % Low 35.0 - 47.0 % [facility] Hemoglobin (Bld) [Mass/Vol] 10.6 g/dL Low 11.7 - 16.0 g/dL [facility] Interpretation and review of laboratory results Abnormal [facility] MCH (RBC) [Entitic mass] 31.5 pg 26. 0 - 34.0 pg [facility] MCHC (RBC) [Mass/Vol] 33.9 % 32.0 - 36.0 % [facility] MCV (RBC) [Entitic vol] 92.9 fL 80.0 - 98.0 fL [facility] Platelet mean volume (Bld) [Entitic vol] 7.7 fL 7.4 - 12.4 fL [facility] Platelets (Bld) [#/Vol] 163 10*3/uL 140 - 440 10*3/uL [facility] RBC (Bld) [#/Vol] 3.36 10*6/uL Low 3.8 - 5.20 10*6/uL [facility] WBC (Bld) [#/Vol] 5.2 10*3/uL 3.6 - 10.7 10*3/uL [facility] Laboratory - Chemistry and C hemistry - challengeon 02-15-2023 Magnesium [Mass/Vol] 1.9 mg/dL 1.6 - 2 .3 mg/dL [facility] Magnesium [Mass/Vol]on 02-15 Interpretation and review of laboratory results Normal [facility] 25-hydroxyvitamin D3 [Mass/V ol]on 02-14-2023 Interpretation and review of laboratory results Normal [facility] Therapy is based on measurement of Total 25-OHD with the following classification levels: Less than 20 ng/mL: Indicative of Vit D deficiency 20-30 ng/mL: Suggests Vit D insufficiency Optimal: Greater than or equal to 30 ng/mL Test performed by [employer] Competitive Immunoassay, measuring Total Vitamin D, not individual fractions. [facility] Laboratory - Chemistry and C hemistry - challengeon 02-14-2023 25-hydroxyvitamin D3 [Mass/Vol] 37 ng/mL 30 - 100 ng/mL [facility] Basic metabolic 1998 panelon 02-13-2023 Anion gap [Moles/Vol] 7 mmol/L 3 - 13 mmol/L [facility] Calcium [Mass/Vol] 9.1 mg/dL 8.4 - 10. 4 mg/dL [facility] Chloride [Moles/Vol] 98 mmol/L 98 - 10 7 mmol/L [facility] CO2 [Moles/Vol] 32 mmol/L High 22 - 30 mmol/L [facility] Creatinine [Mass/Vol] 0.50 mg/dL Low 0.52 - 1.04 mg/dL [facility] GFR/1.73 sq M.predicted MDRD (S/P/Bld) [Vol rate/Area] - PINF [facility] Comment on above: Calculation based on the Chronic Kidney Disease Epidemiology Collaboration (CKD-EPI) equation refit without adjustment for race Glucose [Mass/Vol] 96 mg/dL 70 - 100 mg/dL [facility] Interpretation and review of laboratory results Abnormal [facility] Potassium [Moles/Vol] 3.7 mmol/L 3.5 - 5.1 mmol/L [facility] Sodium [Moles/Vol] 137 mmol/L 135 - 145 mmol/L [facility] Urea nitrogen [Mass/Vol] 13 mg/dL 7 - 17 mg/d L [facility] CBC W Auto Differential pane l (Bld)Ordered By: Kina Valverde on 02-13-2023 Basophils (Bld) [#/Vol] 0.0 10*3/uL 0.0 - 0.2 10*3/uL [facility] Basophils/100 WBC (Bld) 0.3 % 0.0 - 2.0 % [facility] Eosinophils (Bld) [#/Vol] 0.1 10*3/uL 0.0 - 0.5 10*3/uL [facility] Eosinophils/100 WBC (Bld) 0.9 % Low 1.0 - 6.0 % [facility] Erythrocyte distribution width (RBC) [Ratio] 13.8 % 11.5 - 14.5 % [facility] Hematocrit (Bld) [Volume fraction] 36.2 % 35.0 - 47.0 % [facility] Hemoglobin (Bld) [Mass/Vol] 11.9 g/dL 11.7 - 16.0 g/dL [facility] Interpretation and review of laboratory results Abnormal [facility] Lymphocytes (Bld) [#/Vol] 0.7 10*3/uL Low 1.0 - 4.3 10*3/uL [facility] Lymphocytes/100 WBC (Bld) 6.4 % Low 20.0 - 40.0 % [facility] MCH (RBC) [Entitic mass] 30.7 pg 26. 0 - 34.0 pg [facility] MCHC (RBC) [Mass/Vol] 32.7 % 32.0 - 36.0 % [facility] MCV (RBC) [Entitic vol] 93.9 fL 80.0 - 98.0 fL [facility] Monocytes (Bld) [#/Vol] 0.4 10*3/uL 0.0 - 0.8 10*3/uL [facility] Monocytes/100 WBC (Bld) 3.7 % 2.0 - 10.0 % [facility] Neutrophils (Bld) [#/Vol] 9.9 10*3/uL High 1.8 - 7.0 10*3/uL [facility] Neutrophils/100 WBC (Bld) 88.7 % High 40.0 - 80.0 % [facility] Nucleated RBC/100 WBC (Bld) [Ratio] 0.0 % [facility] Platelet mean volume (Bld) [Entitic vol] 7.3 fL Low 7.4 - 12.4 fL [facility] Platelets (Bld) [#/Vol] 212 10*3/uL 140 - 440 10*3/uL [facility] RBC (Bld) [#/Vol] 3.86 10*6/uL 3.8 - 5.20 10*6/uL [facility] WBC (Bld) [#/Vol] 11.1 10*3/uL High 3.6 - 10.7 10*3/uL [facility] XR Lumbar spine 2 or 3 Views on 02-13-2023 1. Multilevel, possible insufficiency compressive changes in the L2-L4 levels, mild and new in the L2 and L4 levels and moderate in the L3 level, similar to comparison. No other, acute osseous abnormality. 2. Degenerative change. Report Dictated on Electronically Signed By: Gianni Avila MD Electronically Signed Date/Time: 02/13/2023 8:25 PM EST [facility] [employer] [facility] Patient Name: GONZALO DELUCA : 1955 [...] also similar. Paraspinal soft tissues grossly unremarkable. [facility] Gianni Avila MD - 02/13/2023 Patient Name: GONZALO DELUCA : 1955 Exam [...] Electronically Signed Date/Time: 02/13/2023 8:25 PM EST [facility] Radiology Study observation (narrative) [facility] al[facility] XR Shoulder - left 2 Viewson 02-13-2023 1. No acute osseous abnormality. 2. Remote posttraumatic and mild degenerative change. Report Dictated on Electronically Signed By: Gianin Avila MD Electronically Signed Date/Time: 02/13/2023 8:17 PM EST [employer] SYSTEM Patient Name: GONZALO DELUCA : 1955 [...] tissues grossly unremarkable. Left-sided portacatheter again noted. [facility] Gianni Avila MD - 02/13/2023 Patient Name: GONZALO DELUCA : 1955 Exam [...] Date/Time: 02/13/2023 8:17 PM EST [facility] Radiology Study observation (narrative) [facility] alth XR Shoulder - left 2 ViewsOr dered By: Gianni Avila on 02-13-2023 [facility] Work Phone: Basic metabolic 1998 panelon 11-08-2022 Anion gap [Moles/Vol] 3 mmol/L 3 - 13 mmol/L [facility] Calcium [Mass/Vol] 8.1 mg/dL Low 8.4 - 10. 4 mg/dL [facility] Chloride [Moles/Vol] 105 mmol/L 98 - 10 7 mmol/L [facility] CO2 [Moles/Vol] 27 mmol/L 22 - 30 mmol/L [facility] Creatinine [Mass/Vol] 0.65 mg/dL 0.52 - 1.04 mg/dL [facility] GFR/1.73 sq M.predicted MDRD (S/P/Bld) [Vol rate/Area] - PINF [facility] Comment on above: Calculation based on the Chronic Kidney Disease Epidemiology Collaboration (CKD-EPI) equation refit without adjustment for race Glucose [Mass/Vol] 142 mg/dL High 70 - 100 mg/dL [facility] Interpretation and review of laboratory results Abnormal [facility] Potassium [Moles/Vol] 4.1 mmol/L 3.5 - 5.1 mmol/L [facility] Sodium [Moles/Vol] 136 mmol/L 135 - 145 mmol/L [facility] Urea nitrogen [Mass/Vol] 19 mg/dL High 7 - 17 mg/d L [facility] CBC W Auto Differential pane l (Bld)Ordered By: Rolando Shelton on 11-08-2022 Basophils (Bld) [#/Vol] 0.1 10*3/uL 0.0 - 0.2 10*3/uL [facility] Basophils/100 WBC (Bld) 0.7 % 0.0 - 2.0 % [facility] Eosinophils (Bld) [#/Vol] 0.0 10*3/uL 0.0 - 0.5 10*3/uL [facility] Eosinophils/100 WBC (Bld) 0.0 % Low 1.0 - 6.0 % [facility] Erythrocyte distribution width (RBC) [Ratio] 14.7 % High 11.5 - 14.5 % [facility] Hematocrit (Bld) [Volume fraction] 29.9 % Low 35.0 - 47.0 % [facility] Hemoglobin (Bld) [Mass/Vol] 10.3 g/dL Low 11.7 - 16.0 g/dL [facility] Interpretation and review of laboratory results Abnormal [facility] Lymphocytes (Bld) [#/Vol] 0.5 10*3/uL Low 1.0 - 4.3 10*3/uL [facility] Lymphocytes/100 WBC (Bld) 5.5 % Low 20.0 - 40.0 % [facility] MCH (RBC) [Entitic mass] 32.0 pg 26. 0 - 34.0 pg [facility] MCHC (RBC) [Mass/Vol] 34.5 % 32.0 - 36.0 % [facility] MCV (RBC) [Entitic vol] 92.8 fL 80.0 - 98.0 fL [facility] Monocytes (Bld) [#/Vol] 0.6 10*3/uL 0.0 - 0.8 10*3/uL [facility] Monocytes/100 WBC (Bld) 6.8 % 2.0 - 10.0 % [facility] Neutrophils (Bld) [#/Vol] 7.9 10*3/uL High 1.8 - 7.0 10*3/uL [facility] Neutrophils/100 WBC (Bld) 87.0 % High 40.0 - 80.0 % [facility] Nucleated RBC/100 WBC (Bld) [Ratio] 0.0 % [facility] Platelet mean volume (Bld) [Entitic vol] 7.6 fL 7.4 - 12.4 fL [facility] Platelets (Bld) [#/Vol] 182 10*3/uL 140 - 440 10*3/uL [facility] RBC (Bld) [#/Vol] 3.23 10*6/uL Low 3.8 - 5.20 10*6/uL [facility] WBC (Bld) [#/Vol] 9.1 10*3/uL 3.6 - 10.7 10*3/uL [facility] Basic metabolic 1998 panelon 11-07-2022 Anion gap [Moles/Vol] 0 mmol/L Low 3 - 13 mmol/L [facility] Calcium [Mass/Vol] 8.3 mg/dL Low 8.4 - 10. 4 mg/dL [facility] Chloride [Moles/Vol] 106 mmol/L 98 - 10 7 mmol/L [facility] CO2 [Moles/Vol] 29 mmol/L 22 - 30 mmol/L [facility] Creatinine [Mass/Vol] 0.71 mg/dL 0.52 - 1.04 mg/dL [facility] GFR/1.73 sq M.predicted MDRD (S/P/Bld) [Vol rate/Area] - PINF [facility] Comment on above: Calculation based on the Chronic Kidney Disease Epidemiology Collaboration (CKD-EPI) equation refit without adjustment for race Glucose [Mass/Vol] 96 mg/dL 70 - 100 mg/dL [facility] Interpretation and review of laboratory results Abnormal [facility] Potassium [Moles/Vol] 3.8 mmol/L 3.5 - 5.1 mmol/L [facility] Sodium [Moles/Vol] 135 mmol/L 135 - 145 mmol/L [facility] Urea nitrogen [Mass/Vol] 14 mg/dL 7 - 17 mg/d L [facility] Slightly Hemolyzed [facility] CBC W Auto Differential pane l (Bld)Ordered By: Hakeem Cruz on 11-07-2022 Basophils (Bld) [#/Vol] 0.0 10*3/uL 0.0 - 0.2 10*3/uL [facility] Basophils/100 WBC (Bld) 0.4 % 0.0 - 2.0 % [facility] Eosinophils (Bld) [#/Vol] 0.5 10*3/uL 0.0 - 0.5 10*3/uL [facility] Eosinophils/100 WBC (Bld) 7.5 % High 1.0 - 6.0 % [facility] Erythrocyte distribution width (RBC) [Ratio] 14.8 % High 11.5 - 14.5 % [facility] Hematocrit (Bld) [Volume fraction] 33.8 % Low 35.0 - 47.0 % [facility] Hemoglobin (Bld) [Mass/Vol] 11.2 g/dL Low 11.7 - 16.0 g/dL [facility] Interpretation and review of laboratory results Abnormal [facility] Lymphocytes (Bld) [#/Vol] 0.7 10*3/uL Low 1.0 - 4.3 10*3/uL [facility] Lymphocytes/100 WBC (Bld) 12.2 % Low 20.0 - 40.0 % [facility] MCH (RBC) [Entitic mass] 31.0 pg 26. 0 - 34.0 pg [facility] MCHC (RBC) [Mass/Vol] 33.3 % 32.0 - 36.0 % [facility] MCV (RBC) [Entitic vol] 93.0 fL 80.0 - 98.0 fL [facility] Monocytes (Bld) [#/Vol] 0.5 10*3/uL 0.0 - 0.8 10*3/uL [facility] Monocytes/100 WBC (Bld) 7.5 % 2.0 - 10.0 % [facility] Neutrophils (Bld) [#/Vol] 4.4 10*3/uL 1.8 - 7.0 10*3/uL [facility] Neutrophils/100 WBC (Bld) 72.4 % 40.0 - 80.0 % [facility] Nucleated RBC/100 WBC (Bld) [Ratio] 0.0 % [facility] Platelet mean volume (Bld) [Entitic vol] 7.0 fL Low 7.4 - 12.4 fL [facility] Platelets (Bld) [#/Vol] 213 10*3/uL 140 - 440 10*3/uL [facility] RBC (Bld) [#/Vol] 3.63 10*6/uL Low 3.8 - 5.20 10*6/uL [facility] WBC (Bld) [#/Vol] 6.0 10*3/uL 3.6 - 10.7 10*3/uL [facility] No Panel Informationon 11-07 There is no interpretation needed for this exam. IMAGING Sinus rhythm Inferior infarct, old Electronically Signed On 11-07-2022 1:11:05 EDT by Melva Hull CV Melva Albrecht, - 11/07/2022 IMPRESSION: Sinus rhythm Inferior infarct, old Electronically Signed On 11-07-2022 1:11:05 EDT by Melva Hull [facility] No Panel InformationOrdered By: Melva Hull on 11-07-2022 P Momence 69 degrees [facility] [employer] Work Phone: MS Interval 152 ms [facility] [employer] Work Phone: QRS Momence -35 degrees [facility] [employer] Work Phone: QRSD Interval 98 ms [facility] Work Phone: QT Interval 395 ms [facility] [employer] Work Phone: QTC Interval 473 ms [facility] [employer] Work Phone: T Wave Momence -12 degrees [facility] [employer] Work Phone: [facility] [employer] Work Phone: Urinalysis complete panel (U )on 11-07-2022 Bilirubin Ql (U) Negative Negative mg/dL [facility] Clarity (U) Clear Clear [facility] [employer] Color (U) Yellow Lt. Yellow [facility] [employer] Glucose Ql (U) Normal Normal (<70) mg/dL [facility] Hemoglobin Ql (U) Negative Negative mg/dL [facility] Interpretation and review of laboratory results Normal [facility] Ketones (U) [Mass/Vol] Negative Negat kenton mg/dL [facility] Leukocyte esterase Test strip Ql (U) Negative Negative Sandra/uL [facility] Nitrite Ql (U) Negative Negative [facility] th pH (U) 6.5 [pH] 5.0 - 8.0 pH [facility] Protein (U) [Mass/Vol] Negative Negat kenton mg/dL [facility] Specific gravity (U) [Rel density] 1.025 1.005 - 1.030 [facility] Urobilinogen (U) [Mass/Vol] Normal Normal (0-1) mg/dL [facility] Vital signsOrdered By: Celio Hull on 11-07-2022 Heart rate 121 /min bpm [facility] [employer] Work Phone: Basic metabolic 1998 panelon 11-06-2022 Anion gap [Moles/Vol] 2 mmol/L Low 3 - 13 mmol/L [facility] Calcium [Mass/Vol] 8.4 mg/dL 8.4 - 10. 4 mg/dL [facility] Chloride [Moles/Vol] 105 mmol/L 98 - 10 7 mmol/L [facility] CO2 [Moles/Vol] 30 mmol/L 22 - 30 mmol/L [facility] Creatinine [Mass/Vol] 0.66 mg/dL 0.52 - 1.04 mg/dL [facility] GFR/1.73 sq M.predicted MDRD (S/P/Bld) [Vol rate/Area] - PINF [facility] Comment on above: Calculation based on the Chronic Kidney Disease Epidemiology Collaboration (CKD-EPI) equation refit without adjustment for race Glucose [Mass/Vol] 99 mg/dL 70 - 100 mg/dL [facility] Interpretation and review of laboratory results Abnormal [facility] Potassium [Moles/Vol] 3.5 mmol/L 3.5 - 5.1 mmol/L [facility] Sodium [Moles/Vol] 137 mmol/L 135 - 145 mmol/L [facility] Urea nitrogen [Mass/Vol] 12 mg/dL 7 - 17 mg/d L [facility] CBC panel Auto (Bld)Ordered By: Desiree Ho on 11-06-2022 Erythrocyte distribution width (RBC) [Ratio] 14.9 % High 11.5 - 14.5 % [facility] Hematocrit (Bld) [Volume fraction] 36.4 % 35.0 - 47.0 % [facility] Hemoglobin (Bld) [Mass/Vol] 12.1 g/dL 11.7 - 16.0 g/dL [facility] Interpretation and review of laboratory results Abnormal [facility] MCH (RBC) [Entitic mass] 31.0 pg 26. 0 - 34.0 pg [facility] MCHC (RBC) [Mass/Vol] 33.3 % 32.0 - 36.0 % [facility] MCV (RBC) [Entitic vol] 93.2 fL 80.0 - 98.0 fL [facility] Platelet mean volume (Bld) [Entitic vol] 7.2 fL Low 7.4 - 12.4 fL [facility] Platelets (Bld) [#/Vol] 238 10*3/uL 140 - 440 10*3/uL [facility] RBC (Bld) [#/Vol] 3.91 10*6/uL 3.8 - 5.20 10*6/uL [facility] WBC (Bld) [#/Vol] 10.3 10*3/uL 3.6 - 10.7 10*3/uL [facility] No Panel Informationon 11-06 Radiology Study observation (narrative) [facility] XR Hand - right 3 Viewson No fracture or acute osseous injury. Report Dictated on Electronically Signed By: Ankit Tripathi MD Electronically Signed Date/Time: 11/06/2022 2:14 PM EDT [facility] Patient Name: GONZALO DELUCA : 1955 [...] Otherwise no significant productive or erosive arthropathy. [facility] Ankit Tripathi MD - 11/06/2022 Patient [...] Electronically Signed Date/Time: 11/06/2022 2:14 PM EDT [facility] XR Hip - left 3 Viewson 10-19 Impression: Intertrochanteric left hip fracture, with foreshortening of the fracture fragments. Report Dictated on Electronically Signed By: Ankit Tripathi MD Electronically Signed Date/Time: 11/06/2022 2:28 PM EDT [facility] Patient Name: GONZALO DELUCA : 1955 [...] of erosion or widening. Normal osseous mineralization. [facility] Ankit Tripathi MD - 11/06/2022 Patient [...] Electronically Signed Date/Time: 11/06/2022 2:28 PM EDT [facility] XR Ribs - left 2 Viewson 1. No acute cardiopulmonary disease. 2. Pulmonary hyperinflation. 3. Normal ribs. Report Dictated on Electronically Signed By: Ankit Tripathi MD Electronically Signed Date/Time: 11/06/2022 2:26 PM EDT [facility] Patient Name: GONZALO DELUCA : 1955 Exam Date/Time: 11/06/2022 14:18 Procedure: XR RIBS 2 VIEWS LEFT Ordering Provider: MCCANN JOSEPH Reason For Exam: Rib pain, fx suspected RIGHT RIBS AND CHEST CLINICAL INDICATION: Pain. TECHNIQUE: Three views were obtained COMPARISON: Correlation with chest radiograph May 21, 2022. FINDINGS: Stable appearance/location of the left-sided chest [id number] line. The cardiac and mediastinal silhouettes are unremarkable. The hyperinflated lungs demonstrate no consolidation or area of atelectasis. The costophrenic angles are sharp. No pneumothorax is noted. The ribs demonstrate no evidence for fracture or bone lesion. [facility] Ankit Tripathi MD - 11/06/2022 Patient Name: GONZALO DELUCA : 1955 Exam Date/Time: 11/06/2022 14:18 Procedure: XR RIBS 2 VIEWS LEFT Ordering Provider: MCCANN JOSEPH Reason For Exam: Rib pain, fx suspected RIGHT RIBS AND CHEST CLINICAL INDICATION: Pain. TECHNIQUE: Three views were obtained COMPARISON: Correlation with chest radiograph May 21, 2022. FINDINGS: Stable appearance/location of the left-sided chest [id number] line. The cardiac and mediastinal silhouettes are [...] Date/Time: 11/06/2022 2:26 PM EDT [facility] Radiology Study observation (narrative) [facility] XR Ribs - left 2 ViewsOrdere d By: Ankit Tripathi on 11-06-2022 [facility] [employer] Work Phone: CBC W Auto Differential pane l (Bld)on 09-15-2022 Basophils (Bld) [#/Vol] 0.05 10*3/uL <0.11 k/uL [facility] Basophils/100 WBC (Bld) 0.5 % [facility] Differential cell count method Nom (Bld) Auto [facility] Eosinophils (Bld) [#/Vol] 0.49 10*3/uL High <0.46 k/uL [facility] Eosinophils/100 WBC (Bld) 5.0 % [facility] Erythrocyte distribution width (RBC) [Ratio] 14.9 % 11.5 - 15.0 % [facility] Hematocrit (Bld) [Volume fraction] 39.3 % 36.0 - 46.0 % [facility] Hemoglobin (Bld) [Mass/Vol] 12.1 g/dL 11.5 - 15.5 g/dL [facility] Immature granulocytes (Bld) [#/Vol] 0.04 10*3/uL <0.10 k/uL [facility] Immature granulocytes/100 WBC (Bld) 0.4 % [facility] Lymphocytes (Bld) [#/Vol] 0.94 10*3/uL Low 1.00 - 4.00 k/uL [facility] Lymphocytes/100 WBC (Bld) 9.7 % [facility] MCH (RBC) [Entitic mass] 30.2 pg 26. 0 - 34.0 pg [facility] MCHC (RBC) [Mass/Vol] 30.8 g/dL 30.5 - 36.0 g/dL [facility] MCV (RBC) [Entitic vol] 98.0 fL 80.0 - 100.0 fL [facility] Monocytes (Bld) [#/Vol] 0.73 10*3/uL <0.87 k/uL [facility] Monocytes/100 WBC (Bld) 7.5 % [facility] Neutrophils (Bld) [#/Vol] 7.47 10*3/uL 1.45 - 7.50 k/uL [facility] Neutrophils/100 WBC (Bld) 76.9 % [facility] Nucleated RBC (Bld) [#/Vol] <0.01 k/uL [facility] Nucleated RBC/100 WBC (Bld) [Ratio] 0.0 /100 WBC [facility] Platelet mean volume (Bld) [Entitic vol] 9.3 fL 9.0 - 12.7 fL [facility] Platelets (Bld) [#/Vol] 349 10*3/uL 150 - 400 k/uL [facility] RBC (Bld) [#/Vol] 4.01 10*6/uL 3.90 - 5.2 0 m/uL [facility] WBC (Bld) [#/Vol] 9.72 10*3/uL 3.70 - 11. 00 k/uL [facility] Comprehensive metabolic 2000 panelon 09-15-2022 Albumin [Mass/Vol] 4.0 g/dL 3.9 - 4.9 g/dL [facility] ALP [Catalytic activity/Vol] 148 U/L High 34 - 123 U/L [facility] ALT [Catalytic activity/Vol] 12 U/L 7 - 38 U/L [facility] Anion gap [Moles/Vol] 11 mmol/L 9 - 18 mmol/L [facility] AST [Catalytic activity/Vol] 17 U/L 13 - 35 U/L [facility] Bilirubin [Mass/Vol] 0.4 mg/dL 0.2 - 1 .3 mg/dL [facility] Calcium [Mass/Vol] 9.8 mg/dL 8.5 - 10. 2 mg/dL [facility] Chloride [Moles/Vol] 103 mmol/L 97 - 10 5 mmol/L [facility] CO2 [Moles/Vol] 28 mmol/L 22 - 30 mmol/L [facility] Creatinine [Mass/Vol] 0.64 mg/dL 0.58 - 0.96 mg/dL [facility] Estimated Glomerular Filtration Rate 98 mL/min/1.73m >=60 mL/min/1.73m [facility] Glucose [Mass/Vol] 84 mg/dL 74 - 99 mg/dL [facility] Potassium [Moles/Vol] 4.4 mmol/L 3.7 - 5.1 mmol/L [facility] Protein [Mass/Vol] 7.3 g/dL 6.3 - 8.0 g/dL [facility] Sodium [Moles/Vol] 142 mmol/L 136 - 144 mmol/L [facility] Urea nitrogen [Mass/Vol] 15 mg/dL 7 - 21 mg/d L [facility] Lipid 1996 panelon Cholesterol [Mass/Vol] 169 mg/dL <200 mg/dL [facility] Cholesterol in HDL [Mass/Vol] 54 mg/dL >39 mg/dL [facility] Cholesterol in LDL [Mass/Vol] 85 mg/dL <100 mg/dL [facility] Cholesterol in LDL/Cholesterol in HDL [Mass ratio] 1.57 {ratio} <2.54 [facility] Cholesterol in VLDL [Mass/Vol] 30 mg/dL High <30 mg/dL [facility] Cholesterol non HDL [Mass/Vol] 115 mg/dL <130 mg/dL [facility] Cholesterol.total/Choles terol in HDL [Mass ratio] 3.13 {ratio} <5.10 [facility] Fasting Time 10 hrs [facility] Triglyceride [Mass/Vol] 150 mg/dL High <150 mg/dL [facility] Basic metabolic 1998 panelon 05-24-2022 Anion gap [Moles/Vol] 3 mmol/L 3 - 13 mmol/L [facility] Calcium [Mass/Vol] 8.4 mg/dL 8.4 - 10. 4 mg/dL [facility] Chloride [Moles/Vol] 106 mmol/L 98 - 10 7 mmol/L [facility] CO2 [Moles/Vol] 30 mmol/L 22 - 30 mmol/L [facility] Creatinine [Mass/Vol] 0.64 mg/dL 0.52 - 1.04 mg/dL [facility] GFR/1.73 sq M.predicted MDRD (S/P/Bld) [Vol rate/Area] - PINF [facility] Comment on above: Calculation based on the Chronic Kidney Disease Epidemiology Collaboration (CKD-EPI) equation refit without adjustment for race Glucose [Mass/Vol] 157 mg/dL High 70 - 100 mg/dL [facility] Interpretation and review of laboratory results Abnormal [facility] Potassium [Moles/Vol] 3.6 mmol/L 3.5 - 5.1 mmol/L [facility] Sodium [Moles/Vol] 139 mmol/L 135 - 145 mmol/L [facility] [facility] Urea nitrogen [Mass/Vol] 12 mg/dL 7 - 17 mg/d L [facility] CBC W Auto Differential pane l (Bld)on 05-24-2022 Basophils (Bld) [#/Vol] 0.0 10*3/uL 0.0 - 0.2 10*3/uL [facility] Basophils/100 WBC (Bld) 0.5 % 0.0 - 2.0 % [facility] Eosinophils (Bld) [#/Vol] 0.3 10*3/uL 0.0 - 0.5 10*3/uL [facility] Eosinophils/100 WBC (Bld) 3.0 % 1.0 - 6.0 % [facility] Erythrocyte distribution width (RBC) [Ratio] 13.5 % 11.5 - 14.5 % [facility] Hematocrit (Bld) [Volume fraction] 30.6 % Low 35.0 - 47.0 % [facility] Hemoglobin (Bld) [Mass/Vol] 10.0 g/dL Low 11.7 - 16.0 g/dL [facility] Interpretation and review of laboratory results Abnormal [facility] Lymphocytes (Bld) [#/Vol] 0.8 10*3/uL Low 1.0 - 4.3 10*3/uL [facility] Lymphocytes/100 WBC (Bld) 8.6 % Low 20.0 - 40.0 % [facility] MCH (RBC) [Entitic mass] 31.0 pg 26. 0 - 34.0 pg [facility] MCHC (RBC) [Mass/Vol] 32.6 % 32.0 - 36.0 % [facility] MCV (RBC) [Entitic vol] 95.1 fL 80.0 - 98.0 fL [facility] Monocytes (Bld) [#/Vol] 0.5 10*3/uL 0.0 - 0.8 10*3/uL [facility] Monocytes/100 WBC (Bld) 5.7 % 2.0 - 10.0 % [facility] Neutrophils (Bld) [#/Vol] 7.6 10*3/uL High 1.8 - 7.0 10*3/uL [facility] Neutrophils/100 WBC (Bld) 82.2 % High 40.0 - 80.0 % [facility] Nucleated RBC/100 WBC (Bld) [Ratio] 0.0 % [facility] Platelet mean volume (Bld) [Entitic vol] 7.1 fL Low 7.4 - 12.4 fL [facility] Platelets (Bld) [#/Vol] 261 10*3/uL 140 - 440 10*3/uL [facility] RBC (Bld) [#/Vol] 3.22 10*6/uL Low 3.8 - 5.20 10*6/uL [facility] WBC (Bld) [#/Vol] 9.3 10*3/uL 3.6 - 10.7 10*3/uL [facility] Basic metabolic 1998 panelon 05-23-2022 Anion gap [Moles/Vol] 2 mmol/L Low 3 - 13 mmol/L [facility] Calcium [Mass/Vol] 8.5 mg/dL 8.4 - 10. 4 mg/dL [facility] Chloride [Moles/Vol] 109 mmol/L High 98 - 10 7 mmol/L [facility] CO2 [Moles/Vol] 28 mmol/L 22 - 30 mmol/L [facility] Creatinine [Mass/Vol] 0.68 mg/dL 0.52 - 1.04 mg/dL [facility] GFR/1.73 sq M.predicted MDRD (S/P/Bld) [Vol rate/Area] - PINF [facility] Comment on above: Calculation based on the Chronic Kidney Disease Epidemiology Collaboration (CKD-EPI) equation refit without adjustment for race Glucose [Mass/Vol] 104 mg/dL High 70 - 100 mg/dL [facility] Interpretation and review of laboratory results Abnormal [facility] Potassium [Moles/Vol] 3.6 mmol/L 3.5 - 5.1 mmol/L [facility] [employer] Sodium [Moles/Vol] 138 mmol/L 135 - 145 mmol/L [facility] [employer] Urea nitrogen [Mass/Vol] 13 mg/dL 7 - 17 mg/d L [facility] CBC W Auto Differential pane l (Bld)Ordered By: Crystal Dupont on 05-23-2022 Basophils (Bld) [#/Vol] 0.1 10*3/uL 0.0 - 0.2 10*3/uL [facility] Basophils/100 WBC (Bld) 0.5 % 0.0 - 2.0 % [facility] Eosinophils (Bld) [#/Vol] 0.2 10*3/uL 0.0 - 0.5 10*3/uL [facility] Eosinophils/100 WBC (Bld) 2.5 % 1.0 - 6.0 % [facility] Erythrocyte distribution width (RBC) [Ratio] 13.9 % 11.5 - 14.5 % [facility] Hematocrit (Bld) [Volume fraction] 31.1 % Low 35.0 - 47.0 % [facility] Hemoglobin (Bld) [Mass/Vol] 10.3 g/dL Low 11.7 - 16.0 g/dL [facility] Interpretation and review of laboratory results Abnormal [facility] Lymphocytes (Bld) [#/Vol] 0.7 10*3/uL Low 1.0 - 4.3 10*3/uL [facility] Lymphocytes/100 WBC (Bld) 6.8 % Low 20.0 - 40.0 % [facility] MCH (RBC) [Entitic mass] 31.5 pg 26. 0 - 34.0 pg [facility] MCHC (RBC) [Mass/Vol] 33.1 % 32.0 - 36.0 % [facility] MCV (RBC) [Entitic vol] 95.1 fL 80.0 - 98.0 fL [facility] Monocytes (Bld) [#/Vol] 0.7 10*3/uL 0.0 - 0.8 10*3/uL [facility] Monocytes/100 WBC (Bld) 7.5 % 2.0 - 10.0 % [facility] Neutrophils (Bld) [#/Vol] 7.9 10*3/uL High 1.8 - 7.0 10*3/uL [facility] Neutrophils/100 WBC (Bld) 82.7 % High 40.0 - 80.0 % [facility] Nucleated RBC/100 WBC (Bld) [Ratio] 0.1 % [facility] Platelet mean volume (Bld) [Entitic vol] 6.7 fL Low 7.4 - 12.4 fL [facility] Platelets (Bld) [#/Vol] 248 10*3/uL 140 - 440 10*3/uL [facility] RBC (Bld) [#/Vol] 3.27 10*6/uL Low 3.8 - 5.20 10*6/uL [facility] WBC (Bld) [#/Vol] 9.6 10*3/uL 3.6 - 10.7 10*3/uL [facility] Laboratory - Chemistry and C hemistry - challengeon 05-23-2022 Magnesium [Mass/Vol] 1.9 mg/dL 1.6 - 2 .3 mg/dL [facility] Magnesium [Mass/Vol]on 05-23 Interpretation and review of laboratory results Normal [facility] No Panel Informationon 05-23 [facility] Basic metabolic 1998 panelon 05-22-2022 Anion gap [Moles/Vol] 2 mmol/L Low 3 - 13 mmol/L [facility] Calcium [Mass/Vol] 8.4 mg/dL 8.4 - 10. 4 mg/dL [facility] Chloride [Moles/Vol] 105 mmol/L 98 - 10 7 mmol/L [facility] CO2 [Moles/Vol] 30 mmol/L 22 - 30 mmol/L [facility] Creatinine [Mass/Vol] 0.69 mg/dL 0.52 - 1.04 mg/dL [facility] GFR/1.73 sq M.predicted MDRD (S/P/Bld) [Vol rate/Area] - PINF [facility] Comment on above: Calculation based on the Chronic Kidney Disease Epidemiology Collaboration (CKD-EPI) equation refit without adjustment for race Glucose [Mass/Vol] 86 mg/dL 70 - 100 mg/dL [facility] Interpretation and review of laboratory results Abnormal [facility] Potassium [Moles/Vol] 4.2 mmol/L 3.5 - 5.1 mmol/L [facility] Sodium [Moles/Vol] 137 mmol/L 135 - 145 mmol/L [facility] Urea nitrogen [Mass/Vol] 13 mg/dL 7 - 17 mg/d L [facility] [employer] CBC W Auto Differential pane l (Bld)Ordered By: Hakeem Cruz on 05-22-2022 Basophils (Bld) [#/Vol] 0.0 10*3/uL 0.0 - 0.2 10*3/uL [facility] Basophils/100 WBC (Bld) 0.5 % 0.0 - 2.0 % [facility] Eosinophils (Bld) [#/Vol] 0.3 10*3/uL 0.0 - 0.5 10*3/uL [facility] Eosinophils/100 WBC (Bld) 4.1 % 1.0 - 6.0 % [facility] Erythrocyte distribution width (RBC) [Ratio] 14.0 % 11.5 - 14.5 % [facility] Hematocrit (Bld) [Volume fraction] 33.0 % Low 35.0 - 47.0 % [facility] Hemoglobin (Bld) [Mass/Vol] 10.8 g/dL Low 11.7 - 16.0 g/dL [facility] Interpretation and review of laboratory results Abnormal [facility] Lymphocytes (Bld) [#/Vol] 1.0 10*3/uL 1.0 - 4.3 10*3/uL [facility] Lymphocytes/100 WBC (Bld) 12.8 % Low 20.0 - 40.0 % [facility] MCH (RBC) [Entitic mass] 31.2 pg 26. 0 - 34.0 pg [facility] MCHC (RBC) [Mass/Vol] 32.8 % 32.0 - 36.0 % [facility] MCV (RBC) [Entitic vol] 95.1 fL 80.0 - 98.0 fL [facility] Monocytes (Bld) [#/Vol] 0.6 10*3/uL 0.0 - 0.8 10*3/uL [facility] Monocytes/100 WBC (Bld) 8.6 % 2.0 - 10.0 % [facility] Neutrophils (Bld) [#/Vol] 5.6 10*3/uL 1.8 - 7.0 10*3/uL [facility] Neutrophils/100 WBC (Bld) 74.0 % 40.0 - 80.0 % [facility] Nucleated RBC/100 WBC (Bld) [Ratio] 0.0 % [facility] Platelet mean volume (Bld) [Entitic vol] 7.0 fL Low 7.4 - 12.4 fL [facility] Platelets (Bld) [#/Vol] 238 10*3/uL 140 - 440 10*3/uL [facility] RBC (Bld) [#/Vol] 3.47 10*6/uL Low 3.8 - 5.20 10*6/uL [facility] WBC (Bld) [#/Vol] 7.5 10*3/uL 3.6 - 10.7 10*3/uL [facility] Laboratory - Chemistry and C hemistry - challengeon 05-22-2022 Magnesium [Mass/Vol] 2.2 mg/dL 1.6 - 2 .3 mg/dL [facility] Magnesium [Mass/Vol]on 05-22 Interpretation and review of laboratory results Normal [facility] No Panel Informationon 05-22 [facility] Basic metabolic 1998 panelon 05-21-2022 Anion gap [Moles/Vol] 1 mmol/L Low 3 - 13 mmol/L [facility] Calcium [Mass/Vol] 9.1 mg/dL 8.4 - 10. 4 mg/dL [facility] Chloride [Moles/Vol] 103 mmol/L 98 - 10 7 mmol/L [facility] CO2 [Moles/Vol] 35 mmol/L High 22 - 30 mmol/L [facility] Creatinine [Mass/Vol] 0.78 mg/dL 0.52 - 1.04 mg/dL [facility] GFR/1.73 sq M.predicted MDRD (S/P/Bld) [Vol rate/Area] 84.4 mL/min/{1.73_m2} - PINF [facility] Comment on above: Calculation based on the Chronic Kidney Disease Epidemiology Collaboration (CKD-EPI) equation refit without adjustment for race Glucose [Mass/Vol] 116 mg/dL High 70 - 100 mg/dL [facility] Potassium [Moles/Vol] 4.2 mmol/L 3.5 - 5.1 mmol/L [facility] Sodium [Moles/Vol] 138 mmol/L 135 - 145 mmol/L [facility] Urea nitrogen [Mass/Vol] 15 mg/dL 7 - 17 mg/d L [facility] CBC W Auto Differential pane l (Bld)Ordered By: Yair Sanchez on 05-21-2022 Basophils (Bld) [#/Vol] 0.0 10*3/uL 0.0 - 0.2 10*3/uL [facility] Basophils/100 WBC (Bld) 0.2 % 0.0 - 2.0 % [facility] Eosinophils (Bld) [#/Vol] 0.2 10*3/uL 0.0 - 0.5 10*3/uL [facility] Eosinophils/100 WBC (Bld) 1.8 % 1.0 - 6.0 % [facility] Erythrocyte distribution width (RBC) [Ratio] 14.0 % 11.5 - 14.5 % [facility] Hematocrit (Bld) [Volume fraction] 39.0 % 35.0 - 47.0 % [facility] Hemoglobin (Bld) [Mass/Vol] 12.5 g/dL 11.7 - 16.0 g/dL [facility] Interpretation and review of laboratory results Abnormal [facility] Lymphocytes (Bld) [#/Vol] 0.7 10*3/uL Low 1.0 - 4.3 10*3/uL [facility] Lymphocytes/100 WBC (Bld) 5.6 % Low 20.0 - 40.0 % [facility] MCH (RBC) [Entitic mass] 30.7 pg 26. 0 - 34.0 pg [facility] MCHC (RBC) [Mass/Vol] 32.1 % 32.0 - 36.0 % [facility] MCV (RBC) [Entitic vol] 95.4 fL 80.0 - 98.0 fL [facility] Monocytes (Bld) [#/Vol] 0.6 10*3/uL 0.0 - 0.8 10*3/uL [facility] Monocytes/100 WBC (Bld) 5.3 % 2.0 - 10.0 % [facility] Neutrophils (Bld) [#/Vol] 10.6 10*3/uL High 1.8 - 7.0 10*3/uL [facility] Neutrophils/100 WBC (Bld) 87.1 % High 40.0 - 80.0 % [facility] Nucleated RBC/100 WBC (Bld) [Ratio] 0.0 % [facility] Platelet mean volume (Bld) [Entitic vol] 7.5 fL 7.4 - 12.4 fL [facility] Platelets (Bld) [#/Vol] 339 10*3/uL 140 - 440 10*3/uL [facility] RBC (Bld) [#/Vol] 4.09 10*6/uL 3.8 - 5.20 10*6/uL [facility] WBC (Bld) [#/Vol] 12.1 10*3/uL High 3.6 - 10.7 10*3/uL [facility] CT Cervical spine WO contras ton 05-21-2022 1. No fracture or subluxation of the cervical vertebrae. 2. 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 3. Diffuse osteopenia. 4. Emphysema. Report Dictated on Electronically Signed By: Jaspreet Jeong Electronically Signed Date/Time: 05/21/2022 4:41 AM [facility] Patient Name: GONZALO DELUCA : [...] emphysema [facility] Jaspreet Jeong, - 05/21/2022 Patient Name: GONZALO DELUCA : [...] osteopenia. 4. Emphysema. Report Dictated on Workstation: [employer] Electronically Signed By: Jaspreet Jeong Electronically Signed Date/Time: 05/21/2022 4:41 AM [facility] Radiology Study observation (narrative) [facility] CT Head WO contraston 2022 No acute intracranial process. Minimal right periorbital soft tissue swelling. Report Dictated on Electronically Signed By: Jaspreet Jeong Electronically Signed Date/Time: 05/21/2022 4:38 AM [facility] Patient Name: GONZALO DELUCA : [...] Right preorbital air density is normal finding. [facility] Jaspreet Jeong DO - 05/21/2022 Patient Name[facility]ON[facility] DEL[facility] 1955 [id number] Exam Date/Time: 05/21/2022 04:30 Procedure: CT HEAD [...] Electronically Signed Date/Time: 05/21/2022 4:38 AM EST [facility] Radiology Study observation (narrative) [facility] Laboratory - Chemistry and C hemistry - challengeon 05-21-2022 Magnesium [Mass/Vol] 2.6 mg/dL High 1.6 - 2 .3 mg/dL [facility] No Panel Informationon 05-21 Interpretation and review of laboratory results Abnormal [facility] Martha Flores MD 05/21/2022 5:56 AM Laceration [...] Procedure completion: Tolerated well, no immediate complications [facility] Martha Flores MD 05/21/2022 5:56 AM [facility] Performed by: Martha Flores MD Authorized by: Martha Flores MD Consent: Consent obtained: Verbal Consent given by: Patient Risks discussed: Infection, need for additional repair, poor cosmetic result and poor wound healing Piffard protocol: Patient identity confirmed: Verbally with patient [...] Tolerated well, no immediate complications [facility] Martha Flores MD 05/21/2022 5:56 AM [facility] Performed by: Martha Flores MD Authorized by: Martha Flores MD Consent: Consent obtained: Verbal Consent given by: Patient Risks discussed: Infection, pain, poor cosmetic result, poor wound healing and need for additional repair Piffard protocol: Patient identity confirmed: Verbally with patient [...] Tolerated well, no immediate complications [facility] XR Chest Single viewon 05-21 1. [...] Jeong Electronically Signed Date/Time: 05/21/2022 3:52 AM [facility] Patient Name: GONZALO DELUCA : 1955 Exam Date/Time: 05/21/2022 04:12 Procedure: XR CHEST 1 VIEW Ordering Provider: FLORES PRISCA Reason For Exam: fall PORTABLE CHEST CLINICAL INDICATION: Fall. COMPARISON: 03/16/2020. Correlation is made with CT chest dated 10/14/2021. TECHNIQUE: A single frontal view of thorax was obtained and reviewed. [facility] Jaspreet Jeong DO - 05/21/2022 Patient [...] Jeong Electronically Signed Date/Time: 05/21/2022 3:52 AM [facility] Radiology Study observation (narrative) [facility] Elbow - right 3 Viewson 0 05-21-2022 Elbow joint effusion . Occult elbow osseous fracture is likely, but not visualized. Osteopenia. Follow-up right elbow radiograph in 7-10 days is recommended. Report Dictated on Electronically Signed By: Jaspreet Jeong Electronically Signed Date/Time: 05/21/2022 4:16 AM [facility] Patient Name: GONZALO DELUCA : [...] are demineralized. No bone lesion is identified. [facility] Jean-Paul Jaspreet, DO - 05/21/2022 Patient Name: GONZALO DELUCA [...] 7-10 days is recommended. Report Dictated on Workstation: [employer] Electronically Signed By: Jaspreet Jeong Electronically Signed Date/Time: 05/21/2022 4:16 AM [facility] [employer] Radiology Study observation (narrative) [facility] XR Elbow - right 3 ViewsOrde red By: Jaspreet Jeong on 05-21-2022 [employer] Work Phone: XR Pelvis 1 or 2 Viewson No acute traumatic osseous abnormality. Osteopenia. Report Dictated on Workstation: [employer] Electronically Signed By: Jaspreet Jeong Electronically Signed Date/Time: 05/21/2022 4:17 AM [facility] Patient Name: GONZALO DELUCA : [...] lesion or soft tissue abnormality is identified. [facility] Jaspreet Jeong, DO - 05/21/2022 Patient [...] osseous abnormality. Osteopenia. Report Dictated on Workstation: [employer] Electronically Signed By: Jaspreet Jeong Electronically Signed Date/Time: 05/21/2022 4:17 AM [facility] Radiology Study observation (narrative) [facility] X[facility] Shoulder - right 2 Viewso n 05-21-2022 1. Acute, transverse fracture through the right proximal surgical humeral neck. There is mild avulsion fracture of the right greater tuberosity. Diffuse osteopenia. Remote multiple mid thoracic compression fracture deformities, unchanged. Emphysema. Report Dictated on Workstation: [employer] Electronically Signed By: Jaspreet Jeong Electronically Signed Date/Time: 05/21/2022 3:56 AM EST [facility] Patient Name: GONZALO DELUCA : 1955 [...] hyperinflated with flattened diaphragms, consistent with COPD. [facility] Jean-Paul, David, DO - 05/21/2022 Patient Name: GONZALO DELUCA [...] Electronically Signed Date/Time: 05/21/2022 3:56 AM EST [facility] Radiology Study observation (narrative) [facility] Basic Metabolic Panelon 07-2 Anion gap [Moles/Vol] 4 mmol/L Normal 3-13 [facility] Comment on above: Performed By: #### B MP3 #### [facility] [address] [place] [address] Calcium [Mass/Vol] 8.8 mg/dL Normal 8.4-10.[address] [facility] Comment on above: Performed By: #### B MP3 #### [facility] [address] [place] [address] CO2 [Moles/Vol] 31 mmol/L High 22-[address] [facility] Comment on above: Performed By: #### B MP3 #### [facility] [address] [place] [address] Glucose [Mass/Vol] 91 mg/dL Normal 70-[address] [facility] Comment on above: Performed By: #### B MP3 #### [facility] [address] [place] [address] Urea nitrogen [Mass/Vol] 15 mg/dL Normal 9-[address] [facility] Comment on above: Performed By: #### B MP3 #### [facility] [address] [place] [address] Creatinine [Mass/Vol] 0.80 mg/dL Normal 0.52-1.25 [facility] Comment on above: Performed By: #### B MP3 #### [facility] [address] [place] [address] GFR/1.73 sq M.predicted among blacks MDRD (S/P/Bld) [Vol rate/Area] 89.7 mL/min/{1.73_m2} Normal >60 [facility] Comment on above: Performed By: #### B MP3 #### [facility] [address] [place] [address] GFR/1.73 sq M.predicted among non-blacks MDRD (S/P/Bld) [Vol rate/Area] 77.4 mL/min/{1.73_m2} Normal >60 [facility] Comment on above: Result Comment: KDIG [...] secretion. Performed By: #### B MP3 #### [facility] [address] [place] [address] Potassium [Moles/Vol] 4.1 mmol/L Normal 3.5-5.1 [facility] Comment on above: Performed By: #### B MP3 #### [facility] [address] [place] [address] Chloride [Moles/Vol] 106 mmol/L Normal 98-107 [facility] Comment on above: Performed By: #### B MP3 #### [facility] [address] [place] [address] Sodium [Moles/Vol] 141 mmol/L Normal 135-[address] [facility] Comment on above: Performed By: #### B MP3 #### [facility] [address] [place] [address] Anion gap [Moles/Vol] 4 mmol/L 3 - 13 mmol/L [facility] Calcium [Mass/Vol] 8.8 mg/dL 8.4 - 10. 4 mg/dL [facility] Chloride [Moles/Vol] 106 mmol/L 98 - 10 7 mmol/L [facility] CO2 [Moles/Vol] 31 mmol/L High 22 - 30 mmol/L [facility] Creatinine [Mass/Vol] 0.8 mg/dL 0.52 - 1.25 mg/dL [facility] EGFR IF NonAfrican [place]uneian 77.4 mL/min 60 - PINF mL/min [facility] [...] [Mass/Vol] 91 mg/dL 70 - 100 mg/dL [facility] Interpretation and review of laboratory results Abnormal [facility] Potassium [Moles/Vol] 4.1 mmol/L 3.5 - 5.1 mmol/L [facility] Sodium [Moles/Vol] 141 mmol/L 135 - 145 mmol/L [facility] Urea nitrogen (BldV) [Mass/Vol] 15 mg/dL 9 - 20 mg/dL [facility] Test Performed by [facility], [address] [place] [address] [facility] CT Chest w/ Contraston 10-14 CT Chest w/ Contrast Patient Name: GONZALO EDEN Computed Tomography ACCESSION EXAM DATE/TIME PROCEDURE ORDERING PROVIDER [id number] 10/14/2021 14:[address] Thorax w/ Contrast ZIYAD MENENDEZ CPT code 44638 Q9967 Reason For Exam (CT Thorax w/ [...] STUART YUN ROBERT Signed Date and Time: 10/16/2021 12:05 pm Signed by: MD STUART YUN ROBERT Transcribed Date and Time: 10/16/2021 12:[address] [facility] TOX SCREEN ROUT URon 19-2 022 Amphetamines Confirm (U) [Mass/Vol] Negative Negative [facility] Barbiturates Urine Negative Negative [facility] Benzodiazepines Urine Negative Negative [facility] Cannabinoids, Urine Negative Negative [facility] Cocaine Ql (U) Negative Negative [facility] Ethanol (U) [Mass/Vol] <11 <11 mg/dL Cl [facility] Opiates Screen Ql (U) Negative Negative [facility] oxyCODONE cutoff Screen (U) [Mass/Vol] Positive Abnormal Negative [facility] Phencyclidine Ql (U) Negative Negative [facility] CT Chest w/ Contraston 12-26 CT Chest w/ Contrast Patient Name: GONZALO EDEN Computed Tomography ACCESSION EXAM DATE/TIME PROCEDURE ORDERING PROVIDER [id number] 12/26/2020 11:[address] Thorax w/ Contrast ZIYAD MENENDEZ CPT code 55781 Q9967 Reason For Exam (CT Thorax w/ [...] Transcribed Date and Time: 12/29/2020 2:[address] [facility] Creatinineon 12-26-2020 Creatinine [Mass/Vol] 0.73 mg/dL Normal 0.52-1.25 [facility] Comment on above: Performed By: #### C RTN3 #### [facility] [address] [place] [address] GFR/1.73 sq M.predicted among blacks MDRD (S/P/Bld) [Vol rate/Area] mL/min/{1.73_m2} Normal >[address] [facility] Comment on above: Performed By: #### C RTN3 #### [facility] [address] [place] [address] GFR/1.73 sq M.predicted among non-blacks MDRD (S/P/Bld) [Vol rate/Area] 87.0 mL/min/{1.73_m2} Normal >60 [facility] Comment on above: Result Comment: KDIG [...] secretion. Performed By: #### C RTN3 #### [employer] [address] [place] [address] Creatinine, SerumOrdered By: Ziyad Menendez on 12-26-2020 Creatinine [Mass/Vol] 0.73 mg/dL 0.52 - 1.25 mg/dL [employer] Work Phone: EGFR IF NonAfrican [place] 87.0 mL/min >60 [employer] Work Phone: Comment on above: KDIGO guidelines [...] MDRD (S/P/Bld) [Vol rate/Area] mL/min/{1.73_m2} >60 mL/min [employer] Work Phone: Test Performed by [employer], [address], [place], [place] [address] [employer] Work Phone: [phone] [employer] Work Phone: XR ELBOW RIGHT (MIN 3 VIEWS) Ordered By: Lauren Lutz on 10-16-2020 Patient Name: GONZALO DELUCA Diagnostic Radiology ACCESSION EXAM DATE/TIME PROCEDURE ORDERING PROVIDER [id number] 10/16/2020 15:30 EDT CR Elbow 3+ Views Right NADEEM LUTZJACQUELINETIMMY King CPT code 73395 Reason For Exam (CR Elbow 3+ Views [...] on --- Final --- Dictating Physician: DO WLALACE ANTHONY Signed Date and Time: 10/16/2020 3:56 pm Signed by: DO WALLACE ANTHONY Transcribed Date and Time: 10/16/2020 3:57 [facility] Work Phone: Real, [facility] Incoming Radiology Results From [facility] - 10/16/2020 3:57 PM EDT Patient Name: GONZALO DELUCA Diagnostic Radiology ACCESSION EXAM DATE/TIME PROCEDURE ORDERING PROVIDER [id number] 10/16/2020 15:30 EDT CR Elbow 3+ Views Right NADEEM LUTZ LAUREN M CPT code 40767 Reason For Exam (CR Elbow 3+ Views [...] Radiology ACCESSION EXAM DATE/TIME PROCEDURE ORDERING PROVIDER [id number] 10/16/2020 15:30 EDT CR Spine Lumbosacral 2 NELDA, NADEEM, LAUREN M or 3 Views CPT code 41384 Reason For Exam (CR Spine Lumbosacral 2 [...] R Transcribed Date and Time: 10/16/2020 5:12 [facility] Work Phone: Real, [facility] Results From [facility] - 10/16/2020 5:12 PM EDT Patient Name: GONZALO DELUCA Diagnostic Radiology ACCESSION EXAM DATE/TIME PROCEDURE ORDERING PROVIDER [id number] 10/16/2020 15:30 EDT CR Spine Lumbosacral 2 NELDA, NADEEM, LAUREN M or 3 Views CPT code 97868 Reason For Exam (CR Spine Lumbosacral 2 [...] and Time: 10/16/2020 5:12 [facility] Work Phone: [facility] Work Phone: XR SACRUM COCCYX (MIN 2 VIEW S)Ordered By: Lauren Lutz on 10-16-2020 Patient Name: GONZALO DELUCA Diagnostic Radiology ACCESSION EXAM DATE/TIME PROCEDURE ORDERING PROVIDER [id number] 10/16/2020 15:30 EDT CR Sacrum/Coccyx 2+ NADEEM LUTZ DANIEL M Views CPT code 48148 Reason For Exam (CR Sacrum/Coccyx 2+ Views) [...] Phone: Real, [facility] Incoming Radiology Results From [facility] - 10/16/2020 5:14 PM EDT Patient Name: GONZALO DELUCA Diagnostic Radiology ACCESSION EXAM DATE/TIME PROCEDURE ORDERING PROVIDER [id number] 10/16/2020 15:30 EDT CR Sacrum/Coccyx 2+ NADEEM LUTZ LAUREN King Kati CPT code 62546 Reason For Exam (CR Sacrum/Coccyx 2+ Views) [...] Tomography ACCESSION EXAM DATE/TIME PROCEDURE ORDERING PROVIDER [id number] 09/24/2020 12:[address] Thorax w/ Contrast ZIYAD MENENDEZ CPT code 52556 Q9967 Reason For Exam (CT Thorax w/ [...] Phone: Real, [facility] Incoming Radiology Results From [facility] - 09/24/2020 6:29 PM EDT Patient Name: GONZALO DELUCA Computed Tomography ACCESSION EXAM DATE/TIME PROCEDURE ORDERING PROVIDER [id number] 09/24/2020 12:[address] Thorax w/ Contrast ZIYAD MENENDEZ CPT code 87419 Q9967 Reason For Exam (CT Thorax w/ Contrast) Malignant neoplasm of exocervix, 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 TECHNIQUE: CT scan of the chest with IV contrast. Multiplanar reformations. COMPARISON: 19 March, 2021. FINDINGS: The lungs again show diffuse, bullous [...] and Time: 09/24/2020 6:28 [facility] Work Phone: [facility] Work Phone: [facility] 09-12-2020 [facility] HNO ID: [id number] Author: Freddy Neal RT(R) Service: Radiology Author Type: Equipment Washer Type: [facility] Filed: 09/12/2020 12:49 PM [...] Alfred(R) September 12, 2020 12:49 PM Normal [facility] Basic metabolic 2000 panelon 09-12-2020 Anion gap [Moles/Vol] 5 mmol/L Low 8-16 [facility] Comment on above: Order Comment: Speci men Type: BLOOD SPECIMEN Performed By: #### 2 4321-2 #### [facility] CLIA [id number] [address] [place] [address] [place] Calcium [Mass/Vol] 8.8 mg/dL Normal 8.5-10.1 [facility] Comment on above: Order Comment: Speci men Type: BLOOD SPECIMEN Performed By: #### 2 4321-2 #### [facility] CLIA [id number] [address] [place], [place] [address] [place] Chloride [Moles/Vol] 102 mmol/L Normal 98-107 [facility] Comment on above: Order Comment: Speci men Type: BLOOD SPECIMEN Performed By: #### 2 4321-2 #### [facility] CLIA [id number] [facility] [place] [address] [place] CO2 [Moles/Vol] 33 mmol/L High 21-32 [facility] Comment on above: Order Comment: Speci men Type: BLOOD SPECIMEN Performed By: #### 2 4321-2 #### [facility] CLIA [id number] [address] [place], [place] [address] [place] Creatinine [Mass/Vol] 0.86 mg/dL Normal 0.51-0.95 [facility] Comment on above: Order Comment: Speci men Type: BLOOD SPECIMEN Performed By: #### 2 4321-2 #### [facility] CLIA [id number] [address] [place] [address] [place] GFR/1.73 sq M.predicted among blacks MDRD (S/P/Bld) [Vol rate/Area] mL/min/{1.73_m2} [facility] Comment on above: Order Comment: Speci men Type: BLOOD SPECIMEN Performed By: #### 2 4321-2 #### [facility] CLIA [id number] [address] [place] [address] [place] GFR/1.73 sq M.predicted among non-blacks MDRD (S/P/Bld) [Vol rate/Area] mL/min/{1.73_m2} [facility] Comment on above: Order Comment: Speci [...] GFR. Performed By: #### 2 4321-2 #### [facility] CLIA [id number] [address] [place] [address] [place] Glucose [Mass/Vol] 98 mg/dL Normal 70-99 [facility] Comment on above: Order Comment: Speci men Type: BLOOD SPECIMEN Result Comment: The [place] Diabetes Association (ADA) provides guidance for cutoff [...] Standards of Medical Care in Diabetes 2016, [place] Diabetes Association. Diabetes Care. 2016.39(Suppl 1). Performed By: #### 2 4321-2 #### [facility] CLIA [id number] [address] [place] [address] STATES OF [facility] Potassium [Moles/Vol] 3.7 mmol/L Normal 3.5-5.1 [facility] Comment on above: Order Comment: Speci men Type: BLOOD SPECIMEN Performed By: #### 2 4321-2 #### [facility] CLIA [id number] [address] [place] [address] STATES [facility] Sodium [Moles/Vol] 140 mmol/L Normal 136-145 [facility] Comment on above: Order Comment: Speci men Type: BLOOD SPECIMEN Performed By: #### 2 4321-2 #### [facility] CLIA [id number] [address] [place] [address] STATES [facility] Urea nitrogen [Mass/Vol] 17 mg/dL Normal 7-18 [facility] Comment on above: Order Comment: Speci men Type: BLOOD SPECIMEN Performed By: #### 2 4321-2 #### [facility] CLIA [id number] [address] [place] [address] STATES [facility] CBC W Auto Differential pane l (Bld)on 09-12-2020 Basophils (Bld) [#/Vol] 0.03 10*3/uL Normal <0.11 [facility] Comment on above: Order Comment: Speci men Type: BLOOD SPECIMEN Performed By: #### 5 7021-8 #### [facility] CLIA [id number] [address] [place] [address] Basophils/100 WBC (Bld) 0.5 % Normal [facility] Comment on above: Order Comment: Speci men Type: BLOOD SPECIMEN Performed By: #### 5 7021-8 #### [facility] CLIA [id number] [address] [place] [address] Differential cell count method Nom (Bld) Auto Normal [facility] Comment on above: Order Comment: Speci men Type: BLOOD SPECIMEN Performed By: #### 5 7021-8 #### [facility] CLIA [id number] [address] [place] [address] Eosinophils (Bld) [#/Vol] 0.49 10*3/uL High <0.46 [facility] Comment on above: Order Comment: Speci men Type: BLOOD SPECIMEN Performed By: #### 5 7021-8 #### [facility] CLIA [id number] [address] [place] [address] Eosinophils/100 WBC (Bld) 8.2 % Normal [facility] Comment on above: Order Comment: Speci men Type: BLOOD SPECIMEN Performed By: #### 5 7021-8 #### [facility] CLIA [id number] [address] [place] [address] Erythrocyte distribution width (RBC) [Ratio] 12.7 % Normal 11.5-15.0 [facility] Comment on above: Order Comment: Speci men Type: BLOOD SPECIMEN Performed By: #### 5 7021-8 #### [facility] CLIA [id number] [address] [place] [address] Hematocrit (Bld) [Volume fraction] 34.2 % Low 36.0-46.0 [facility] Comment on above: Order Comment: Speci men Type: BLOOD SPECIMEN Performed By: #### 5 7021-8 #### [facility] CLIA [id number] [address] [place] [address] [place] Hemoglobin (Bld) [Mass/Vol] 10.8 g/dL Low 11.5-15.5 [facility] Comment on above: Order Comment: Speci men Type: BLOOD SPECIMEN Performed By: #### 5 7021-8 #### [facility] CLIA [id number] [address] [place] [address] Lymphocytes (Bld) [#/Vol] 0.59 10*3/uL Low 1.00-4.00 [facility] Comment on above: Order Comment: Speci men Type: BLOOD SPECIMEN Performed By: #### 5 7021-8 #### [facility] CLIA [id number] [address] [place] [address] Lymphocytes/100 WBC (Bld) 9.9 % Normal [facility] Comment on above: Order Comment: Speci men Type: BLOOD SPECIMEN Performed By: #### 5 7021-8 #### [facility] CLIA [id number] [address] [place] [address] MCH (RBC) [Entitic mass] 30.7 pg Normal 26.0-34.0 [facility] Comment on above: Order Comment: Speci men Type: BLOOD SPECIMEN Performed By: #### 5 7021-8 #### [facility] CLIA [id number] [address] [place] [address] MCHC (RBC) [Mass/Vol] 31.6 g/dL Normal 30.5-36.0 [facility] Comment on above: Order Comment: Speci men Type: BLOOD SPECIMEN Performed By: #### 5 7021-8 #### [facility] CLIA [id number] [address] [place] [address] MCV (RBC) [Entitic vol] 97.2 fL Normal 80.0-100.0 A [facility] Comment on above: Order Comment: Speci men Type: BLOOD SPECIMEN Performed By: #### 5 7021-8 #### [facility] CLIA [id number] [address] [place] [address] OF [facility] Monocytes (Bld) [#/Vol] 0.63 10*3/uL Normal <0.87 [facility] Comment on above: Order Comment: Speci men Type: BLOOD SPECIMEN Performed By: #### 5 7021-8 #### [facility] CLIA [id number] [address] [place] [address] Monocytes/100 WBC (Bld) 10.6 % Normal A [facility] Comment on above: Order Comment: Speci men Type: BLOOD SPECIMEN Performed By: #### 5 7021-8 #### [facility] CLIA [id number] [address] [place] [address] Neutrophils (Bld) [#/Vol] 4.20 10*3/uL Normal 1.45-7.50 [facility] Comment on above: Order Comment: Speci men Type: BLOOD SPECIMEN Performed By: #### 5 7021-8 #### [facility] CLIA [id number] [address] [place] [address] Neutrophils/100 WBC (Bld) 70.8 % Normal [facility] Comment on above: Order Comment: Speci men Type: BLOOD SPECIMEN Performed By: #### 5 7021-8 #### [facility] CLIA [id number] [address] [place] [address] Platelet mean volume (Bld) [Entitic vol] 9.1 fL Normal 9.0-12.7 [facility] Comment on above: Order Comment: Speci men Type: BLOOD SPECIMEN Performed By: #### 5 7021-8 #### [facility] CLIA [id number] [address] [place] [address] Platelets (Bld) [#/Vol] 215 10*3/uL Normal 150-400 [facility] Comment on above: Order Comment: Speci men Type: BLOOD SPECIMEN Performed By: #### 5 7021-8 #### [facility] CLIA [id number] [address] [place] [address] [place] RBC (Bld) [#/Vol] 3.52 10*6/uL Low 3.90-5.20 [facility] Comment on above: Order Comment: Speci men Type: BLOOD SPECIMEN Performed By: #### 5 7021-8 #### [facility] CLIA [id number] [address] [place] [address] WBC (Bld) [#/Vol] 5.94 10*3/uL Normal 3.70-11.00 [facility] Comment on above: Order Comment: Speci men Type: BLOOD SPECIMEN Performed By: #### 5 7021-8 #### [facility] CLIA [id number] [address] [place] [address] [place] [address] BRAIN WO IVCONon 09-13-[address] BRAIN WO IVCON * * *Final Report* * * DATE OF EXAM: Sep 12 2020 1:00PM [facility] 0504 - CT BRAIN WO IVCON / [...] clear. The visualized paranasal sinuses are clear. Production Assistant (topogram) images: No additional findings. IMPRESSION: 1. No CT evidence of acute intracranial abnormalities. 2. Small area of presumed encephalomalacia within right occipital lobe posteriorly. Clinical correlation is recommended. 3. Presumed postsurgical changes of right orbits are partially imaged. Dry Cell Battery Assembler: PSCMilind Transcribe Date/Time: Sep 12 2020 1:04P Dictated by : ELIOT STERLING MD This examination was interpreted and the report reviewed and electronically signed by: ELIOT STERLING MD on Sep 12 2020 1:12PM EST [id number] Normal [facility] CT CERVICAL SPINE WO IVCONon 09-12-2020 CT CERVICAL SPINE WO IVCON * * *Final Report* * * DATE OF EXAM: Sep 12 2020 1:00PM [facility] 0505 - CT CERVICAL SPINE WO IVCON [...] Counting reference: Craniocervical junction. Anatomic Variants: None. Production Assistant (topogram) images: No additional findings. Alignment: Grade [...] vertebrae with counting from the craniocervical junction. Dry Cell Battery Assembler: PSCMilind Transcribe Date/Time: Sep 12 2020 1:12P Dictated by : ELIOT STERLING MD This examination was interpreted and the report reviewed and electronically signed by: ELIOT STERLING MD on Sep 12 2020 1:28PM EST [id number] Normal [facility] ED NOTEon 09-12-2020 ED NOTE HNO ID: [id number] Author: Ursula De León RN Service: Emergency Medicine Author Type: Registered Nurse Type: ED Notes Filed: 09/12/2020 1:53 PM Note Text: Normal [facility] ED NOTE HNO ID: [id number] Author: Griselda Gaviria RN Service: Emergency Medicine Author Type: Registered Nurse Type: ED Notes Filed: 09/12/2020 11:45 AM Note Text: Pt c/o frequent falls, injury to right shoulder. Pt also c/o possible UTI-having urinary frequency. Normal [facility] ED PROV NOTEon 09-12-2020 ED PROV NOTE HNO ID: [id number] Author: Sneha Jett DO Service: Emergency Medicine [...] Date - COPD (chronic obstructive pulmonary disease) (HCC) - DDD (degenerative disc disease), lumbar - Encounter for chronic pain management - Major depression, recurrent, chronic (HCC) - Osteoporosis - Pulmonary nodule, right 2016 PAST SURGICAL HISTORY Procedure Laterality Date - [...] years: 103.50 Start date: 1971 Quit date: 2018 Years since quittin.4 - Smokeless tobacco: Never [...] (135 lb) (more content not included)... Normal [facility] Urinalysis complete panel (U )on 09-12-2020 Bacteria LM.HPF (Urine sed) [#/Area] Moderate Abnormal None Seen [facility] Comment on above: Order Comment: Speci men Type: URINE SPECIMEN Performed By: #### 2 4356-8 #### [facility] CLIA [id number] [address] [place] [address] Bilirubin Ql (U) Negative Normal Negative [facility] Comment on above: Order Comment: Speci men Type: URINE SPECIMEN Performed By: #### 2 4356-8 #### [facility] CLIA [id number] [address] [place] [address] Clarity (Unsp spec) Cloudy Abnormal Clear [facility] Comment on above: Order Comment: Speci men Type: URINE SPECIMEN Performed By: #### 2 4356-8 #### [facility] CLIA [id number] [address] [place] [address] Color (U) Yellow Normal Yellow [facility] Comment on above: Order Comment: Speci men Type: URINE SPECIMEN Performed By: #### 2 4356-8 #### [facility] CLIA [id number] [address] [place] [address] Epithelial cells LM.HPF (Urine sed) [#/Area] Few Normal [facility] Comment on above: Order Comment: Speci men Type: URINE SPECIMEN Performed By: #### 2 4356-8 #### [facility] CLIA [id number] [facility] [place] [address] [facility] Glucose Test strip (U) [Mass/Vol] Negative Normal Negative [facility] Comment on above: Order Comment: Speci men Type: URINE SPECIMEN Performed By: #### 2 4356-8 #### [facility] CLIA [id number] [address] [place], [place] [address] [place] Hemoglobin Ql (U) Trace Abnormal Negative [facility] Comment on above: Order Comment: Speci men Type: URINE SPECIMEN Performed By: #### 2 4356-8 #### [facility] CLIA [id number] [address] [place] [address] Ketones Ql (U) Negative Normal Negative [facility] Comment on above: Order Comment: Speci men Type: URINE SPECIMEN Performed By: #### 2 4356-8 #### [facility] CLIA [id number] [address] [place], [place] [address] [facility] Leukocyte esterase Test strip Ql (U) 3+ Abnormal Negative [facility] Comment on above: Order Comment: Speci men Type: URINE SPECIMEN Performed By: #### 2 4356-8 #### [facility] CLIA [id number] [address] [place] [address] [place] Nitrite Ql (U) Negative Normal Negative [facility] Comment on above: Order Comment: Speci men Type: URINE SPECIMEN Performed By: #### 2 4356-8 #### [facility] CLIA [id number] [address] [place], [place] [address] [place] pH (U) 6.0 [pH] Normal 5.0-8.0 [facility] Comment on above: Order Comment: Speci men Type: URINE SPECIMEN Performed By: #### 2 4356-8 #### [facility] CLIA [id number] [address] [place], [place] [address] [place] Protein (U) [Mass/Vol] Negative Normal Negative [facility] Comment on above: Order Comment: Speci men Type: URINE SPECIMEN Performed By: #### 2 4356-8 #### [facility] CLIA [id number] [address] [place] [address] RBC LM.HPF (Urine sed) [#/Area] 0-3 /HPF Normal 0-3 /HPF [facility] Comment on above: Order Comment: Speci men Type: URINE SPECIMEN Performed By: #### 2 4356-8 #### [facility] CLIA [id number] [address] [place] [address] Specific gravity (U) [Rel density] 1.015 Normal 1.005-1.030 [facility] Comment on above: Order Comment: Speci men Type: URINE SPECIMEN Performed By: #### 2 4356-8 #### [facility] CLIA [id number] [address] [place] [address] Urobilinogen Ql (U) 0.2 EU/dL Normal 0.2-1.0 EU/dL [facility] Comment on above: Order Comment: Speci men Type: URINE SPECIMEN Performed By: #### 2 4356-8 #### [facility] CLIA [id number] [address] [place] [address] WBC LM.HPF (Urine sed) [#/Area] 11-25 /HPF Abnormal 0-5 /HPF [facility] Comment on above: Order Comment: Speci men Type: URINE SPECIMEN Performed By: #### 2 4356-8 #### [facility] CLIA [id number] [address] [place] [address] XR SHLDR >/=3V AP/HECTOR AP/OTH R RTon 09-12-2020 XR SHLDR >/=3V AP/HECTOR AP/OTHR RT * * *Final Report* * * DATE OF EXAM: Sep 12 2020 12:48PM AWX 5253 - XR SHLDR >/=3V AP/HECTOR AP/OTHR RT / PROCEDURE REASON: Shoulder pain, [...] are seen. IMPRESSION: No acute osseous abnormality. 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 Transcribe Date/Time: Sep 12 2020 12:55P Dictated by : SHANON CARTER MD This examination was interpreted and the report reviewed and electronically signed by: SHANON CARTER MD on Sep 12 2020 12:56PM EST [id number] Normal [facility] POCT Creatinineon 06-06-2020 Creatinine [Mass/Vol] 0.8 mg/dL 0.6 - 1.4 mg/dL [facility] Work Phone: Comment on above: Performed by [employer] [facility] CLIA ID:[id number] [place] GFR/1.73 sq M predicted among blacks MDRD (S/P/Bld) [Vol rate/Area] mL/min/{1.73_m2} >60 mL/min [facility] Work Phone: GFR/1.73 sq M predicted among non-blacks MDRD (S/P/Bld) [Vol rate/Area] 78.2 mL/min/{1.73_m2} >60 [facility] Work Phone: Comment on above: KDIGO guidelines [...] renal tubular creatinine secretion. Test Performed by [facility] [employer] [facility], [address] JANNY [address] Work Phone: Brain Natriuretic Peptide 03-16-2020 Natriuretic peptide B (Bld) [Mass/Vol] 100 pg/mL 0 - 125 pg/mL [place], [place] Test Performed by [facility], [address] JANNY [address] COVID-19, Rapidon 03-16-2020 Sodium [Moles/Vol] see below [place], [place] Comment on above: Not Detected Expected Result: Not Detected _ Isothermal nucleic acid amplification performed on the [employer] System by the [facility] Laboratory Negative results do not preclude SARS-CoV-2 infection and should not be used as the sole basis for treatment or other patient management decisions. This assay was developed by [employer] and distributed under an Emergency Use Authorization (EUA) granted by the FDA for the qualitative detection of SARS-CoV-2 nucleic acid. Provider and patient fact sheets can be found at https://www.fda.gov/media/828607/download and https://www.fda.gov/media/018743/download. Test [facility], [address] JANNY [address] Comprehensive Metabolic Pane cory 03-16-2020 Albumin [Mass/Vol] 3.2 g/dL Low 3.5 - 5 g/dL [place], [place] ALP [Catalytic activity/Vol] 98 U/L 38 - 126 U/L [place], [place] ALT [Catalytic activity/Vol] 18 U/L 0 - 34 U/L [place] Comment on above: The ALT test is perf ormed by an updated assay method. Please note that the reference intervals have been changed and are now sex specific. Anion gap [Moles/Vol] 6 mmol/L [place], [place] AST [Catalytic activity/Vol] 27 U/L 15 - 46 U/L [place] Bilirubin Ql (U) 0.1 mg/dL Low 0.2 - 1.3 mg/dL [place] Calcium [Mass/Vol] 8.7 mg/dL 8.4 - 10. 4 mg/dL [place] Chloride [Moles/Vol] 104 mmol/L 98 - 10 7 mmol/L [place] CO2 [Moles/Vol] 29 mmol/L 22 - 30 mmol/L [place] Creatinine [Mass/Vol] 0.85 mg/dL 0.52 - 1.25 mg/dL [place] EGFR IF NonAfrican [place] 72.8 mL/min >60 [place], [place] Comment on above: KDIGO guidelines pro [...] MDRD (S/P/Bld) [Vol rate/Area] 84.3 mL/min/{1.73_m2} >60 [place] Glucose [Mass/Vol] 96 mg/dL 70 - 100 mg/dL [place] Interpretation and review of laboratory results Abnormal [place] Potassium [Moles/Vol] 4.1 mmol/L 3.5 - 5.1 mmol/L [place] Protein [Mass/Vol] 6.0 g/dL Low 6.3 - 8.2 g/dL [place] Sodium [Moles/Vol] 138 mmol/L 135 - 145 mmol/L [place] Urea nitrogen [Mass/Vol] 14 mg/dL 7 - 20 mg/d L [place] Test Performed by [facility] [employer] [facility], [address], [place], [place] [address] [place], [place] Hemogram (CBC) w/Auto Diffon 03-16-2020 Absolute Baso # 0.0 10*3/uL 0 - 0.2 10*3/uL [place] Absolute Neut # 5.0 10*3/uL 1.8 - 7 10*3/uL [place] Basophils/100 WBC (Bld) 0.5 % 0 - 2 % [place], [place] Eosinophils (Bld) [#/Vol] 0.1 10*3/uL 0 - 0.5 10*3/uL [place] Eosinophils/100 WBC (Bld) 1.7 % 1 - 6 % [place] Erythrocyte distribution width (RBC) [Ratio] 21.1 % High 11.5 - 14.5 % [place] Granulocytes/100 WBC (Bld) 76.2 % 40 - 80 % [place] Hematocrit (Bld) [Volume fraction] 27.3 % Low 35 - 47 % [place] Hemoglobin (Bld) [Mass/Vol] 8.9 g/dL Low 11.7 - 16 g/dL [place] Interpretation and review of laboratory results Abnormal [place] Lymphocytes (Bld) [#/Vol] 0.6 10*3/uL Low 1 - 4.3 10*3/uL [place] Lymphocytes/100 WBC (Bld) 9.5 % Low 20 - 40 % [place] MCH (RBC) [Entitic mass] 30.6 pg 26 - 34 pg [place] MCHC (RBC) [Mass/Vol] 32.7 % 32 - 36 % [place], [place] MCV (RBC) [Entitic vol] 93.4 fL 79 - 98 fL [place], [place] Monocytes (Bld) [#/Vol] 0.8 10*3/uL 0 - 0.8 10*3/uL [place], [place] Monocytes/100 WBC (Bld) 12.1 % High 2 - 10 % [place] Platelet mean volume (Bld) [Entitic vol] 6.9 fL Low 7.4 - 10.4 fL [place] Platelets (Bld) [#/Vol] 235 10*3/uL 140 - 440 10*3/uL [place] RBC (Bld) [#/Vol] 2.93 10*6/uL Low 3.8 - 5.2 10*6/uL [place] WBC (Bld) [#/Vol] 6.6 10*3/uL 3.6 - 10.7 10*3/uL [place] Test Performed by [facility], [address] Metabolic Panelon 03-16-2020 Sodium [Moles/Vol] Slight [place], [place] RBC MORPHOLOGYon 03-16-2020 Anisocytosis Ql (Bld) Moderate [place], [place] RBC morphology finding Nom (Bld) ABNORMAL [place] Test Performed by [facility], [address] Troponin x1on 03-16-2020 Troponin I.cardiac [Mass/Vol] ng/mL 0 - 0.034 ng/mL [place], [place] Comment on above: . Test Performed by [facility], [address] XR CHEST PORTABLEon 03-16-20 20 Patient Name: GONZALO DELUCA Diagnostic Radiology ACCESSION EXAM DATE/TIME PROCEDURE ORDERING PROVIDER [id number] 03/16/2020 14:04 EST CR Chest Portable RODRÍGUEZ SOLIZ AMY L CPT code 65196 Reason For Exam (CR Chest Portable) Cough [...] JOHN Transcribed Date and Time: 03/16/2020 2:16 [facility]- [place], [place] [facility], [facility] Incoming Radiology Results From [facility] - 03/16/2020 2:16 PM EST Patient Name: GONZALO DELUCA [facility]#: [id number] Diagnostic Radiology ACCESSION EXAM DATE/TIME PROCEDURE ORDERING PROVIDER [id number] 03/16/2020 14:04 EST CR Chest Portable RODRÍGUEZ SOLIZ AMY L CPT code 88104 Reason For Exam (CR Chest Portable) Cough [...] JOHN Transcribed Date and Time: 03/16/2020 2:16 [place], [place] CBC Auto Differentialon 12-0 Absolute Baso # 0.0 10*3/uL 0 - 0.2 10*3/uL [place] Absolute Neut # 2.5 10*3/uL 1.8 - 7 10*3/uL [place] Basophils/100 WBC (Bld) 0.5 % 0 - 2 % [place] Eosinophils (Bld) [#/Vol] 0.2 10*3/uL 0 - 0.5 10*3/uL [place] Eosinophils/100 WBC (Bld) 6.1 % High 1 - 6 % [place] Erythrocyte distribution width (RBC) [Ratio] 16.2 % High 11.5 - 14.5 % [place] Granulocytes/100 WBC (Bld) 70.6 % 40 - 80 % [place] Hematocrit (Bld) [Volume fraction] 29.6 % Low 35 - 47 % [place] Hemoglobin (Bld) [Mass/Vol] 9.8 g/dL Low 11.7 - 16 g/dL [place] Interpretation and review of laboratory results Abnormal [place] Lymphocytes (Bld) [#/Vol] 0.5 10*3/uL Low 1 - 4.3 10*3/uL [place] Lymphocytes/100 WBC (Bld) 13.0 % Low 20 - 40 % [place] MCH (RBC) [Entitic mass] 29.6 pg 26 - 34 pg [place] MCHC (RBC) [Mass/Vol] 33.0 % 32 - 36 % [place] MCV (RBC) [Entitic vol] 89.6 fL 79 - 98 fL [place] Monocytes (Bld) [#/Vol] 0.3 10*3/uL 0 - 0.8 10*3/uL [place] Monocytes/100 WBC (Bld) 9.8 % 2 - 10 % [place] Platelet mean volume (Bld) [Entitic vol] 7.5 fL 7.4 - 10.4 fL [place] Platelets (Bld) [#/Vol] 155 10*3/uL 140 - 440 10*3/uL [place] RBC (Bld) [#/Vol] 3.30 10*6/uL Low 3.8 - 5.2 10*6/uL [place] WBC (Bld) [#/Vol] 3.5 10*3/uL Low 3.6 - 10.7 10*3/uL [place] [facility], [facility] [place], [place] [id number] [place] [address] Comp Metabolic Panelon 02-20 ALP [Catalytic activity/Vol] 89 U/L Normal 38-[address] [facility] Comment on above: Performed By: #### C MP3, MG3, HEMDF ####[employer] [place], [place] ALT [Catalytic activity/Vol] 18 U/L Normal 0-[address] [facility] Comment on above: Result Comment: The ALT test is performed by an updated assay method. Please note that the reference intervals have been changed and are now sex specific. Performed By: #### C MP3, MG3, HEMDF ####[employer] [id number] [place], [place] Calcium [Mass/Vol] 8.8 mg/dL Normal 8.4-10.[address] [facility] Comment on above: Performed By: #### C MP3, MG3, HEMDF ####[employer] [id number] [place], [place] Glucose [Mass/Vol] 79 mg/dL Normal 70-[address] [facility] Comment on above: Performed By: #### C MP3, MG3, HEMDF ####[employer] [id number] [place], [place] Protein [Mass/Vol] 6.0 g/dL Low 6.3-8.[address] [facility] Comment on above: Performed By: #### C MP3, MG3, HEMDF ####[place] [address] [place], [place] Urea nitrogen [Mass/Vol] 11 mg/dL Normal 7-[address] [facility] Comment on above: Performed By: #### C MP3, MG3, HEMDF ####[place] [address] [place], [place] Anion gap [Moles/Vol] 5 Normal [facility] Comment on above: Performed By: #### C MP3, MG3, HEMDF ####[place] [address] [place], [place] AST [Catalytic activity/Vol] 35 U/L Normal 15-[address] [facility] Comment on above: Performed By: #### C MP3, MG3, HEMDF ####[place] [address] [place], [place] Bilirubin [Mass/Vol] 0.3 mg/dL Normal 0.2-1.3 [facility] Comment on above: Performed By: #### C MP3, MG3, HEMDF ####[facility] [employer] [id number] [place], [place] CO2 [Moles/Vol] 31 mmol/L High 22-[address] [facility] Comment on above: Performed By: #### C MP3, MG3, HEMDF ####[place] [address] [place], [place] Creatinine [Mass/Vol] 0.64 mg/dL Normal 0.52-1.25 [facility] Comment on above: Performed By: #### C MP3, MG3, HEMDF ####[facility] [employer] [id number] [place], [place] GFR/1.73 sq M predicted among blacks MDRD (S/P/Bld) [Vol rate/Area] mL/min/{1.73_m2} Normal >[address] [facility] Comment on above: Performed By: #### C MP3, MG3, HEMDF ####[place] [address] [place], [place] GFR/1.73 sq M predicted among non-blacks MDRD (S/P/Bld) [Vol rate/Area] mL/min/{1.73_m2} Normal >[address] [facility] Comment on above: Result Comment: KDIG [...] Performed By: #### C MP3, MG3, HEMDF ####[place] [address] [place] Chloride [Moles/Vol] 101 mmol/L Normal 98-107 [facility] Comment on above: Performed By: #### C MP3, MG3, HEMDF ####[place] [address] [place], [place] Potassium [Moles/Vol] 4.2 mmol/L Normal 3.5-5.1 [facility] Comment on above: Performed By: #### C MP3, MG3, HEMDF ####[facility] [place] [address] Sodium [Moles/Vol] 137 mmol/L Normal 135-[address] [facility] Comment on above: Performed By: #### C MP3, MG3, HEMDF ####[place] [place] [address] Albumin [Mass/Vol] 2.2 g/dL Low 3.5-5.[address] [facility] Comment on above: Performed By: #### C MP3, MG3, HEMDF ####[facility] [place] [address] Comprehensive Metabolic Pane cory 02-21-2020 Albumin [Mass/Vol] 2.2 g/dL Low 3.5 - 5 g/dL [place], [place] ALP [Catalytic activity/Vol] 89 U/L 38 - 126 U/L [place] ALT [Catalytic activity/Vol] 18 U/L 0 - 34 U/L [place] Comment on above: The ALT test is perf ormed by an updated assay method. Please note that the reference intervals have been changed and are now sex specific. Anion gap [Moles/Vol] 5 mmol/L [place] AST [Catalytic activity/Vol] 35 U/L 15 - 46 U/L [place] Bilirubin Ql (U) 0.3 mg/dL 0.2 - 1.3 mg/dL [place] Calcium [Mass/Vol] 8.8 mg/dL 8.4 - 10. 4 mg/dL [place] Chloride [Moles/Vol] 101 mmol/L 98 - 10 7 mmol/L [place] CO2 [Moles/Vol] 31 mmol/L High 22 - 30 mmol/L [place] Creatinine [Mass/Vol] 0.64 mg/dL 0.52 - 1.25 mg/dL [place] EGFR IF NonAfrican [place] >90.0 >60 mL/min [place] Comment on above: KDIGO guidelines pro [...] MDRD (S/P/Bld) [Vol rate/Area] mL/min/{1.73_m2} >60 mL/min [place] Glucose [Mass/Vol] 79 mg/dL 70 - 100 mg/dL [place] Interpretation and review of laboratory results Abnormal [place] Potassium [Moles/Vol] 4.2 mmol/L 3.5 - 5.1 mmol/L [place] Protein [Mass/Vol] 6.0 g/dL Low 6.3 - 8.2 g/dL [place] Sodium [Moles/Vol] 137 mmol/L 135 - 145 mmol/L [place] Urea nitrogen [Mass/Vol] 11 mg/dL 7 - 20 mg/d L [place] Hemogram w/ Autodiffon 02-20 Abs Baso Cnt 0.0 10*3/uL Normal 0.0-0.2 [facility] Comment on above: Performed By: #### C MP3, MG3, HEMDF #### [address] Abs Neutrophile Cnt 2.5 10*3/uL Normal 1.8-7.0 [facility] Comment on above: Performed By: #### C MP3, MG3, HEMDF #### [address] Basophils/100 WBC (Bld) 0.5 % Normal 0.0-2.0 [facility] Comment on above: Performed By: #### C MP3, MG3, HEMDF #### [address] Eosinophils (Bld) [#/Vol] 0.2 10*3/uL Normal 0.0-0.[address] [facility] Comment on above: Performed By: #### C MP3, MG3, HEMDF #### [address] Eosinophils/100 WBC (Bld) 6.1 % High 1.0-6.[address] [facility] Comment on above: Performed By: #### C MP3, MG3, HEMDF #### [facility] [address] [place], [place] Erythrocyte distribution width (RBC) [Ratio] 16.2 % High 11.5-14.[address] [facility] Comment on above: Performed By: #### C MP3, MG3, HEMDF #### [place] [address] [address] [place], [place] Granulocytes/100 WBC (Bld) 70.6 % Normal 40.0-80.[address] [facility] Comment on above: Performed By: #### C MP3, MG3, HEMDF #### [place] [address] [address] [place], [place] Hematocrit (Bld) [Volume fraction] 29.6 % Low 35.0-47.[address] [facility] Comment on above: Performed By: #### C MP3, MG3, HEMDF #### [place] [address] [address] [place], [place] Hemoglobin (Bld) [Mass/Vol] 9.8 g/dL Low 11.7-16.[address] [facility] Comment on above: Performed By: #### C MP3, MG3, HEMDF #### [place] [address] [address] [place], [place] Lymphocytes (Bld) [#/Vol] 0.5 10*3/uL Low 1.0-4.[address] [facility] Comment on above: Performed By: #### C MP3, MG3, HEMDF #### [place] [address] [address] [place], [place] Lymphocytes/100 WBC (Bld) 13.0 % Low 20.0-40.[address] [facility] Comment on above: Performed By: #### C MP3, MG3, HEMDF #### [place] [address] [address] [place], [place] MCH (RBC) [Entitic mass] 29.6 pg Normal 26.0-34.[address] [facility] Comment on above: Performed By: #### C MP3, MG3, HEMDF #### [place] [address] [address] [place], [place] MCHC (RBC) [Mass/Vol] 33.0 % Normal 32.0-36.0 [facility] Comment on above: Performed By: #### C MP3, MG3, HEMDF #### [place] [address] [place], [place] MCV (RBC) [Entitic vol] 89.6 fL Normal 79.0-98.0 [facility] Comment on above: Performed By: #### C MP3, MG3, HEMDF #### [address] Monocytes (Bld) [#/Vol] 0.3 10*3/uL Normal 0.0-0.[address] [facility] Comment on above: Performed By: #### C MP3, MG3, HEMDF #### [place] [address] [place], [place] Monocytes/100 WBC (Bld) 9.8 % Normal 2.0-10.0 [facility] Comment on above: Performed By: #### C MP3, MG3, HEMDF #### [address] Platelet mean volume (Bld) [Entitic vol] 7.5 fL Normal 7.4-10.[address] [facility] Comment on above: Performed By: #### C MP3, MG3, HEMDF #### [place] [address] [place], [place] Platelets (Bld) [#/Vol] 155 10*3/uL Normal 140-[address] [facility] Comment on above: Performed By: #### C MP3, MG3, HEMDF #### [address] RBC (Bld) [#/Vol] 3.30 10*6/uL Low 3.80-5.[address] [facility] Comment on above: Performed By: #### C MP3, MG3, HEMDF #### [facility] [address] [place] [address] WBC (Bld) [#/Vol] 3.5 10*3/uL Low 3.6-10.[address] [facility] Comment on above: Performed By: #### C MP3, MG3, HEMDF #### [facility] [address] [place] [address] Magnesiumon 02-21-2020 Magnesium [Mass/Vol] 1.6 mg/dL Normal 1.6-2.3 [facility] Comment on above: Performed By: #### C MP3, MG3, HEMDF #### [place] [address] [place], [place] Magnesium [Mass/Vol] 1.6 mg/dL 1.6 - 2 .3 mg/dL [place] Otheron 02-21-2020 Test Performed by [facility], [address] [place] [address] [place], [place] CBC Auto Differentialon 01-19 Absolute Baso # 0.0 10*3/uL 0 - 0.2 10*3/uL [place] Absolute Neut # 5.3 10*3/uL 1.8 - 7 10*3/uL [place] Basophils/100 WBC (Bld) 0.4 % 0 - 2 % [place] Eosinophils (Bld) [#/Vol] 0.1 10*3/uL 0 - 0.5 10*3/uL [place] Eosinophils/100 WBC (Bld) 1.0 % 1 - 6 % [place] Erythrocyte distribution width (RBC) [Ratio] 15.0 % High 11.5 - 14.5 % [place] Granulocytes/100 WBC (Bld) 84.0 % High 40 - 80 % [place] Hematocrit (Bld) [Volume fraction] 34.1 % Low 35 - 47 % [place] Hemoglobin (Bld) [Mass/Vol] 11.3 g/dL Low 11.7 - 16 g/dL [place] Lymphocytes (Bld) [#/Vol] 0.4 10*3/uL Low 1 - 4.3 10*3/uL [place] Lymphocytes/100 WBC (Bld) 5.7 % Low 20 - 40 % [place] MCH (RBC) [Entitic mass] 29.7 pg 26 - 34 pg [place] MCHC (RBC) [Mass/Vol] 33.0 % 32 - 36 % [place] MCV (RBC) [Entitic vol] 89.8 fL 79 - 98 fL [place] Monocytes (Bld) [#/Vol] 0.6 10*3/uL 0 - 0.8 10*3/uL [place] Monocytes/100 WBC (Bld) 8.9 % 2 - 10 % [place] Platelet mean volume (Bld) [Entitic vol] 6.7 fL Low 7.4 - 10.4 fL [place] Platelets (Bld) [#/Vol] 315 10*3/uL 140 - 440 10*3/uL [place] RBC (Bld) [#/Vol] 3.79 10*6/uL Low 3.8 - 5.2 10*6/uL [place] WBC (Bld) [#/Vol] 6.3 10*3/uL 3.6 - 10.7 10*3/uL [place] Comprehensive Metabolic Pane cory 02-07-2020 Albumin [Mass/Vol] 3.5 g/dL 3.5 - 5 g/dL [place] ALP [Catalytic activity/Vol] 91 U/L 38 - 126 U/L [place] ALT [Catalytic activity/Vol] 21 U/L 0 - 34 U/L [place] Comment on above: The ALT test is perf ormed by an updated assay method. Please note that the reference intervals have been changed and are now sex specific. Anion gap [Moles/Vol] 4 mmol/L [place] AST [Catalytic activity/Vol] 24 U/L 15 - 46 U/L [place] Bilirubin Ql (U) 0.5 mg/dL 0.2 - 1.3 mg/dL [place] Calcium [Mass/Vol] 9.1 mg/dL 8.4 - 10. 4 mg/dL [place] Chloride [Moles/Vol] 101 mmol/L 98 - 10 7 mmol/L [place] CO2 [Moles/Vol] 33 mmol/L High 22 - 30 mmol/L [place] Creatinine [Mass/Vol] 0.66 mg/dL 0.52 - 1.25 mg/dL [place] EGFR IF NonAfrican [place] >90.0 >60 mL/min [place] Comment on above: KDIGO guidelines pro [...] MDRD (S/P/Bld) [Vol rate/Area] mL/min/{1.73_m2} >60 mL/min [place] Glucose [Mass/Vol] 97 mg/dL 70 - 100 mg/dL [place] Potassium [Moles/Vol] 3.9 mmol/L 3.5 - 5.1 mmol/L [place] Protein [Mass/Vol] 6.1 g/dL Low 6.3 - 8.2 g/dL [place] Sodium [Moles/Vol] 139 mmol/L 135 - 145 mmol/L [place] Urea nitrogen [Mass/Vol] 19 mg/dL 7 - 20 mg/d L [place] Magnesiumon 02-07-2020 Magnesium [Mass/Vol] 1.5 mg/dL Low 1.6 - 2 .3 mg/dL [place] Otheron 02-07-2020 Interpretation and review of laboratory results Abnormal [place] Test Performed by [facility], [address], [place], [place] [address] [place], [place] CBC Auto Differentialon 01-19 Absolute Baso # 0.0 10*3/uL 0 - 0.2 10*3/uL [place] Absolute Neut # 7.6 10*3/uL High 1.8 - 7 10*3/uL [place] Basophils/100 WBC (Bld) 0.1 % 0 - 2 % [place] Eosinophils (Bld) [#/Vol] 0.0 10*3/uL 0 - 0.5 10*3/uL [place] Eosinophils/100 WBC (Bld) 0.0 % Low 1 - 6 % [place] Erythrocyte distribution width (RBC) [Ratio] 14.3 % 11.5 - 14.5 % [place] Granulocytes/100 WBC (Bld) 94.4 % High 40 - 80 % [place] Hematocrit (Bld) [Volume fraction] 35.2 % 35 - 47 % [place] Hemoglobin (Bld) [Mass/Vol] 11.3 g/dL Low 11.7 - 16 g/dL [place] Interpretation and review of laboratory results Abnormal [place] Lymphocytes (Bld) [#/Vol] 0.2 10*3/uL Low 1 - 4.3 10*3/uL [place] Lymphocytes/100 WBC (Bld) 2.8 % Low 20 - 40 % [place] MCH (RBC) [Entitic mass] 29.2 pg 26 - 34 pg [place] MCHC (RBC) [Mass/Vol] 32.2 % 32 - 36 % [place] MCV (RBC) [Entitic vol] 90.7 fL 79 - 98 fL [place] Monocytes (Bld) [#/Vol] 0.2 10*3/uL 0 - 0.8 10*3/uL [place] Monocytes/100 WBC (Bld) 2.7 % 2 - 10 % [place] Platelet mean volume (Bld) [Entitic vol] 8.1 fL 7.4 - 10.4 fL [place] Platelets (Bld) [#/Vol] 252 10*3/uL 140 - 440 10*3/uL [place] RBC (Bld) [#/Vol] 3.88 10*6/uL 3.8 - 5.2 10*6/uL [place] WBC (Bld) [#/Vol] 8.1 10*3/uL 3.6 - 10.7 10*3/uL [place] Test Performed by [facility], [address] [place] [address] Comp Metabolic Panelon 01-30 ALP [Catalytic activity/Vol] 112 U/L Normal 38-[address] [facility] Comment on above: Performed By: #### C MP3, MG3, HEMDF #### [address] ALT [Catalytic activity/Vol] 20 U/L Normal 0-[address] [facility] Comment on above: Result Comment: The ALT test is performed by an updated assay method. Please note that the reference intervals have been changed and are now sex specific. Performed By: #### C MP3, MG3, HEMDF #### [address] Calcium [Mass/Vol] 9.3 mg/dL Normal 8.4-10.[address] [facility] Comment on above: Performed By: #### C MP3, MG3, HEMDF #### [address] Glucose [Mass/Vol] 119 mg/dL High 70-[address] [facility] Comment on above: Performed By: #### C MP3, MG3, HEMDF #### [address] Urea nitrogen [Mass/Vol] 16 mg/dL Normal 7-[address] [facility] Comment on above: Performed By: #### C MP3, MG3, HEMDF #### [facility] [address] [place], [place] Anion gap [Moles/Vol] 9 Normal [facility] Comment on above: Performed By: #### C MP3, MG3, HEMDF #### [place] [address] [address] [place], [place] AST [Catalytic activity/Vol] 26 U/L Normal 15-[address] [facility] Comment on above: Performed By: #### C MP3, MG3, HEMDF #### [place] [address] [address] [place], [place] Bilirubin [Mass/Vol] 0.2 mg/dL Normal 0.2-1.3 [facility] Comment on above: Performed By: #### C MP3, MG3, HEMDF #### [place] [address] [address] [place], [place] CO2 [Moles/Vol] 28 mmol/L Normal 22-30 [facility] Comment on above: Performed By: #### C MP3, MG3, HEMDF #### [place] [address] [address] [place], [place] Creatinine [Mass/Vol] 0.54 mg/dL Normal 0.52-1.25 [facility] Comment on above: Performed By: #### C MP3, MG3, HEMDF #### [place] [address] [address] [place], [place] GFR/1.73 sq M predicted among blacks MDRD (S/P/Bld) [Vol rate/Area] mL/min/{1.73_m2} Normal >[address] [facility] Comment on above: Performed By: #### C MP3, MG3, HEMDF #### [place] [address] [address] [place], [place] GFR/1.73 sq M predicted among non-blacks MDRD (S/P/Bld) [Vol rate/Area] mL/min/{1.73_m2} Normal >[address] [facility] Comment on above: Result Comment: KDIG [...] By: #### C MP3, MG3, HEMDF #### [place] [address] [place], [place] Protein [Mass/Vol] 6.9 g/dL Normal 6.3-8.[address] [facility] Comment on above: Performed By: #### C MP3, MG3, HEMDF #### [address] Chloride [Moles/Vol] 102 mmol/L Normal 98-107 [facility] Comment on above: Performed By: #### C MP3, MG3, HEMDF #### [place] [address] [place], [place] Potassium [Moles/Vol] 4.5 mmol/L Normal 3.5-5.1 [facility] Comment on above: Performed By: #### C MP3, MG3, HEMDF #### [place] [address] [place], [place] Sodium [Moles/Vol] 139 mmol/L Normal 135-[address] [facility] Comment on above: Performed By: #### C MP3, MG3, HEMDF #### [place] [address] [place], [place] Albumin [Mass/Vol] 3.8 g/dL Normal 3.5-5.[address] [facility] Comment on above: Performed By: #### C MP3, MG3, HEMDF #### [facility] [address] [place] [address] Comprehensive Metabolic Pane cory 01-31-2020 Albumin [Mass/Vol] 3.8 g/dL 3.5 - 5 g/dL [place] ALP [Catalytic activity/Vol] 112 U/L 38 - 126 U/L [place] ALT [Catalytic activity/Vol] 20 U/L 0 - 34 U/L [place] Comment on above: The ALT test is perf ormed by an updated assay method. Please note that the reference intervals have been changed and are now sex specific. Anion gap [Moles/Vol] 9 mmol/L [place] AST [Catalytic activity/Vol] 26 U/L 15 - 46 U/L [place] Bilirubin Ql (U) 0.2 mg/dL 0.2 - 1.3 mg/dL [place] Calcium [Mass/Vol] 9.3 mg/dL 8.4 - 10. 4 mg/dL [place] Chloride [Moles/Vol] 102 mmol/L 98 - 10 7 mmol/L [place] CO2 [Moles/Vol] 28 mmol/L 22 - 30 mmol/L [place] Creatinine [Mass/Vol] 0.54 mg/dL 0.52 - 1.25 mg/dL [place] EGFR IF NonAfrican [place] >90.0 >60 mL/min [place] Comment on above: KDIGO guidelines pro [...] MDRD (S/P/Bld) [Vol rate/Area] mL/min/{1.73_m2} >60 mL/min [place] Glucose [Mass/Vol] 119 mg/dL High 70 - 100 mg/dL [place] Interpretation and review of laboratory results Abnormal [place] Potassium [Moles/Vol] 4.5 mmol/L 3.5 - 5.1 mmol/L [place] Protein [Mass/Vol] 6.9 g/dL 6.3 - 8.2 g/dL [place] Sodium [Moles/Vol] 139 mmol/L 135 - 145 mmol/L [place] Urea nitrogen [Mass/Vol] 16 mg/dL 7 - 20 mg/d L [place] Hemogram w/ Autodiffon 01-30 Abs Baso Cnt 0.0 10*3/uL Normal 0.0-0.2 [facility] Comment on above: Performed By: #### C MP3, MG3, HEMDF #### [facility] [address] [place] [address] Abs Neutrophile Cnt 7.6 10*3/uL High 1.8-7.0 [facility] Comment on above: Performed By: #### C MP3, MG3, HEMDF #### [facility] [address] [place] [address] Basophils/100 WBC (Bld) 0.1 % Normal 0.0-2.0 [facility] Comment on above: Performed By: #### C MP3, MG3, HEMDF #### [facility] [address] [place] [address] Eosinophils (Bld) [#/Vol] 0.0 10*3/uL Normal 0.0-0.[address] [facility] Comment on above: Performed By: #### C MP3, MG3, HEMDF #### [place] [address] [address] [place], [place] Eosinophils/100 WBC (Bld) 0.0 % Low 1.0-6.[address] [facility] Comment on above: Performed By: #### C MP3, MG3, HEMDF #### [place] [address] [address] [place], [place] Erythrocyte distribution width (RBC) [Ratio] 14.3 % Normal 11.5-14.[address] [facility] Comment on above: Performed By: #### C MP3, MG3, HEMDF #### [place] [address] [address] [place], [place] Granulocytes/100 WBC (Bld) 94.4 % High 40.0-80.[address] [facility] Comment on above: Performed By: #### C MP3, MG3, HEMDF #### [place] [address] [place], [place] Hematocrit (Bld) [Volume fraction] 35.2 % Normal 35.0-47.[address] [facility] Comment on above: Performed By: #### C MP3, MG3, HEMDF #### [place] [address] [place], [place] Hemoglobin (Bld) [Mass/Vol] 11.3 g/dL Low 11.7-16.[address] [facility] Comment on above: Performed By: #### C MP3, MG3, HEMDF #### [place] [place], [place] Lymphocytes (Bld) [#/Vol] 0.2 10*3/uL Low 1.0-4.[address] [facility] Comment on above: Performed By: #### C MP3, MG3, HEMDF #### [address] [address] [place], [place] Lymphocytes/100 WBC (Bld) 2.8 % Low 20.0-40.[address] [facility] Comment on above: Performed By: #### C MP3, MG3, HEMDF #### [place] [address] [place], [place] MCH (RBC) [Entitic mass] 29.2 pg Normal 26.0-34.[address] [facility] Comment on above: Performed By: #### C MP3, MG3, HEMDF #### [place] [address] [place], [place] MCHC (RBC) [Mass/Vol] 32.2 % Normal 32.0-36.0 [facility] Comment on above: Performed By: #### C MP3, MG3, HEMDF #### [place] [place], [place] MCV (RBC) [Entitic vol] 90.7 fL Normal 79.0-98.0 [facility] Comment on above: Performed By: #### C MP3, MG3, HEMDF #### [place] [address] [place], [place] Monocytes (Bld) [#/Vol] 0.2 10*3/uL Normal 0.0-0.[address] [facility] Comment on above: Performed By: #### C MP3, MG3, HEMDF #### [address] [place] [address] [place], [place] Monocytes/100 WBC (Bld) 2.7 % Normal 2.0-10.0 [facility] Comment on above: Performed By: #### C MP3, MG3, HEMDF #### [address] [address] [address] [place], [place] Platelet mean volume (Bld) [Entitic vol] 8.1 fL Normal 7.4-10.[address] [facility] Comment on above: Performed By: #### C MP3, MG3, HEMDF #### [address] [address] [place], [place] Platelets (Bld) [#/Vol] 252 10*3/uL Normal 140-[address] [facility] Comment on above: Performed By: #### C MP3, MG3, HEMDF #### [address] [address] [place], [place] RBC (Bld) [#/Vol] 3.88 10*6/uL Normal 3.80-5.[address] [facility] Comment on above: Performed By: #### C MP3, MG3, HEMDF #### [address] WBC (Bld) [#/Vol] 8.1 10*3/uL Normal 3.6-10.[address] [facility] Comment on above: Performed By: #### C MP3, MG3, HEMDF #### [address] [address] [place], [place] Magnesiumon 01-31-2020 Magnesium [Mass/Vol] 1.8 mg/dL Normal 1.6-2.3 [facility] Comment on above: Performed By: #### C MP3, MG3, HEMDF #### [address] Magnesium [Mass/Vol] 1.8 mg/dL 1.6 - 2 .3 mg/dL [place], [place] Otheron 01-31-2020 Test Performed by [facility], [address] [place] [address] [place], [place] CBC Auto Differentialon Absolute Baso # 0.0 10*3/uL 0 - 0.2 10*3/uL [place] Absolute Neut # 5.1 10*3/uL 1.8 - 7 10*3/uL [place], [place] Basophils/100 WBC (Bld) 0.5 % 0 - 2 % [place] Eosinophils (Bld) [#/Vol] 0.5 10*3/uL 0 - 0.5 10*3/uL [place] Eosinophils/100 WBC (Bld) 6.7 % High 1 - 6 % [place] Erythrocyte distribution width (RBC) [Ratio] 14.5 % 11.5 - 14.5 % [place] Granulocytes/100 WBC (Bld) 73.3 % 40 - 80 % [place] Hematocrit (Bld) [Volume fraction] 35.8 % 35 - 47 % [place] Hemoglobin (Bld) [Mass/Vol] 11.5 g/dL Low 11.7 - 16 g/dL [place] Interpretation and review of laboratory results Abnormal [place] Lymphocytes (Bld) [#/Vol] 0.8 10*3/uL Low 1 - 4.3 10*3/uL [place] Lymphocytes/100 WBC (Bld) 12.2 % Low 20 - 40 % [place] MCH (RBC) [Entitic mass] 29.3 pg 26 - 34 pg [place] MCHC (RBC) [Mass/Vol] 32.2 % 32 - 36 % [place] MCV (RBC) [Entitic vol] 90.9 fL 79 - 98 fL [place], [place] Monocytes (Bld) [#/Vol] 0.5 10*3/uL 0 - 0.8 10*3/uL [place], [place] Monocytes/100 WBC (Bld) 7.3 % 2 - 10 % [place] Platelet mean volume (Bld) [Entitic vol] 8.1 fL 7.4 - 10.4 fL [place] Platelets (Bld) [#/Vol] 219 10*3/uL 140 - 440 10*3/uL [place] RBC (Bld) [#/Vol] 3.94 10*6/uL 3.8 - 5.2 10*6/uL [place] WBC (Bld) [#/Vol] 6.9 10*3/uL 3.6 - 10.7 10*3/uL [place] Test Performed by [facility], [address] [place], [place] [address] [place], [place] Comprehensive Metabolic Pane cory 01-24-2020 Albumin [Mass/Vol] 3.9 g/dL 3.5 - 5 g/dL [place] ALP [Catalytic activity/Vol] 97 U/L 38 - 126 U/L [place] ALT [Catalytic activity/Vol] 22 U/L 0 - 34 U/L [place] Comment on above: The ALT test is perf ormed by an updated assay method. Please note that the reference intervals have been changed and are now sex specific. Anion gap [Moles/Vol] 7 mmol/L [place] AST [Catalytic activity/Vol] 27 U/L 15 - 46 U/L [place] Bilirubin Ql (U) 0.4 mg/dL 0.2 - 1.3 mg/dL [place] Calcium [Mass/Vol] 9.4 mg/dL 8.4 - 10. 4 mg/dL [place] Chloride [Moles/Vol] 102 mmol/L 98 - 10 7 mmol/L [place] CO2 [Moles/Vol] 31 mmol/L High 22 - 30 mmol/L [place] Creatinine [Mass/Vol] 0.73 mg/dL 0.52 - 1.25 mg/dL [place] EGFR IF NonAfrican [place]uneian 87.5 mL/min >60 [place] Comment on above: KDIGO guidelines pro [...] MDRD (S/P/Bld) [Vol rate/Area] mL/min/{1.73_m2} >60 mL/min [place] Glucose [Mass/Vol] 106 mg/dL High 70 - 100 mg/dL [place] Interpretation and review of laboratory results Abnormal [place] Potassium [Moles/Vol] 4.3 mmol/L 3.5 - 5.1 mmol/L [place] Protein [Mass/Vol] 6.8 g/dL 6.3 - 8.2 g/dL [place] Sodium [Moles/Vol] 140 mmol/L 135 - 145 mmol/L [place] Urea nitrogen [Mass/Vol] 20 mg/dL 7 - 20 mg/d L [place] Magnesiumon 01-24-2020 Magnesium [Mass/Vol] 2.0 mg/dL 1.6 - 2 .3 mg/dL [place], [place] Otheron 01-24-2020 [facility], [address], [place], [place] [address] [place], [place] CBC Auto Differentialon - Absolute Baso # 0.1 10*3/uL 0 - 0.2 10*3/uL [place] Absolute Neut # 5.5 10*3/uL 1.8 - 7 10*3/uL [place] Basophils/100 WBC (Bld) 1.0 % 0 - 2 % [place] Eosinophils (Bld) [#/Vol] 1.2 10*3/uL High 0 - 0.5 10*3/uL [place] Eosinophils/100 WBC (Bld) 13.8 % High 1 - 6 % [place] Erythrocyte distribution width (RBC) [Ratio] 14.0 % 11.5 - 14.5 % [place] Granulocytes/100 WBC (Bld) 63.2 % 40 - 80 % [place] Hematocrit (Bld) [Volume fraction] 37.1 % 35 - 47 % [place] Hemoglobin (Bld) [Mass/Vol] 12.4 g/dL 11.7 - 16 g/dL [place] Interpretation and review of laboratory results Abnormal [place] Lymphocytes (Bld) [#/Vol] 1.3 10*3/uL 1 - 4.3 10*3/uL [place] Lymphocytes/100 WBC (Bld) 15.1 % Low 20 - 40 % [place] MCH (RBC) [Entitic mass] 30.2 pg 26 - 34 pg [place] MCHC (RBC) [Mass/Vol] 33.5 % 32 - 36 % [place] MCV (RBC) [Entitic vol] 90.0 fL 79 - 98 fL [place], [place] Monocytes (Bld) [#/Vol] 0.6 10*3/uL 0 - 0.8 10*3/uL [place], [place] Monocytes/100 WBC (Bld) 6.9 % 2 - 10 % [place] Platelet mean volume (Bld) [Entitic vol] 8.1 fL 7.4 - 10.4 fL [place], [place] Platelets (Bld) [#/Vol] 224 10*3/uL 140 - 440 10*3/uL [place] RBC (Bld) [#/Vol] 4.12 10*6/uL 3.8 - 5.2 10*6/uL [place] WBC (Bld) [#/Vol] 8.7 10*3/uL 3.6 - 10.7 10*3/uL [place] Test Performed by [facility], [address], [place] [address] [place], [place] Comprehensive Metabolic Pane cory 01-17-2020 Albumin [Mass/Vol] 3.8 g/dL 3.5 - 5 g/dL [place] ALP [Catalytic activity/Vol] 99 U/L 38 - 126 U/L [place] ALT [Catalytic activity/Vol] 17 U/L 0 - 34 U/L [place] Comment on above: The ALT test is perf ormed by an updated assay method. Please note that the reference intervals have been changed and are now sex specific. Anion gap [Moles/Vol] 7 mmol/L [place] AST [Catalytic activity/Vol] 29 U/L 15 - 46 U/L [place] Bilirubin Ql (U) 0.3 mg/dL 0.2 - 1.3 mg/dL [place] Calcium [Mass/Vol] 8.7 mg/dL 8.4 - 10. 4 mg/dL [place] Chloride [Moles/Vol] 102 mmol/L 98 - 10 7 mmol/L [place] CO2 [Moles/Vol] 33 mmol/L High 22 - 30 mmol/L [place] Creatinine [Mass/Vol] 0.75 mg/dL 0.52 - 1.25 mg/dL [place] EGFR IF NonAfrican [place]uneian 84.7 mL/min >60 [place] Comment on above: KDIGO guidelines pro [...] MDRD (S/P/Bld) [Vol rate/Area] mL/min/{1.73_m2} >60 mL/min [place] Glucose [Mass/Vol] 93 mg/dL 70 - 100 mg/dL [place] Interpretation and review of laboratory results Abnormal [place] Potassium [Moles/Vol] 2.8 mmol/L Low 3.5 - 5.1 mmol/L [place] Protein [Mass/Vol] 6.6 g/dL 6.3 - 8.2 g/dL [place] Sodium [Moles/Vol] 142 mmol/L 135 - 145 mmol/L [place] Urea nitrogen [Mass/Vol] 9 mg/dL 7 - 20 mg/d L [place] Magnesiumon 01-17-2020 Magnesium [Mass/Vol] 1.9 mg/dL 1.6 - 2 .3 mg/dL [place] Otheron 01-17-2020 Test Performed by [facility] [employer] [facility], [address], [place], [place] [id number] [place] [address] CT Nonbill Guide Rad Therapy on 12-26-2019 CT Nonbill Guide Rad Therapy Patient Name: GONZALO DELUCA CT Exam Date/Time 12/26/2019 11:38:[address] Nonbill Guide Rad Therapy Ordering Physician MD BAR, BURKE Balderas Accession Number [id number] Reason For Exam Endometriod Ca Report CT of the abdomen and pelvis without intravenous contrast, 12/26/2019. Reason for examination: Endometrial cancer. Patient for radiation therapy. COMPARISON: October 27, 2019. TECHNIQUE: Large [id number] 3 mm axial images were obtained through [...] Transcribed Date and Time: 12/26/2019 3:[address] [facility] Otheron 12-26-2019 Patient Name: GONZALO DELUCA ---CT--- Exam Date/Time 12/26/2019 11:38:[address] Nonbill Guide Rad Therapy Ordering Physician MD BAR, BURKE Balderas Accession Number [id number] Reason For Exam Endometriod Ca Report CT of the abdomen and pelvis without intravenous contrast, 12/26/2019. Reason for examination: Endometrial cancer. Patient for radiation therapy. COMPARISON: October 27, 2019. TECHNIQUE: Large wjosu-ge-dogl 3 mm axial images were obtained through [...] M Transcribed Date and Time: 12/26/2019 3:50 [facility], [place] Real, [facility] Incoming Radiology Results From [facility] - 12/26/2019 3:55 PM EDT Patient Name: GONZALO DELUCA ---CT--- Exam Date/Time 12/26/2019 11:38:[address] Nonbill Guide Rad Therapy Ordering Physician MD BAR, BURKE Balderas Accession Number [id number] Reason For Exam Endometriod Ca Report CT of the abdomen and pelvis without intravenous contrast, 12/26/2019. Reason for examination: Endometrial cancer. Patient for radiation therapy. COMPARISON: October 27, 2019. TECHNIQUE: Large eickj-jv-tkom 3 mm axial images were obtained through [...] M Transcribed Date and Time: 12/26/2019 3:50 [facility], [place] XA SPECIAL ANGIOGRAPHY PROCE DUREon 12-19-2019 Patient Name: GONZALO DELUCA ---Special Procedures--- Exam Date/Time 12/19/2019 14:31:06 EDT Exam XA Special Angiography Procedure Ordering Physician SHON ZIYAD Accession Number [id number] Reason For Exam Mediport placement Report LEFT [...] MALAY Transcribed Date and Time: 12/19/2019 2:32 [facility] [place], [place] Real, [facility] Incoming Radiology Results From [facility] - 12/19/2019 2:33 PM EDT Patient Name: GONZALO DELUCA ---Special Procedures--- Exam Date/Time 12/19/2019 14:31:06 EDT Exam XA Special Angiography Procedure Ordering Physician ZIYAD MENENDEZ Accession Number [id number] Reason For Exam Mediport placement Report LEFT [...] MALAY Transcribed Date and Time: 12/19/2019 2:32 [place], [place] XR CHEST PORTABLEon 12-19-19 Patient Name: GONZALO DELUCA ---Diagnostic Radiology--- Exam Date/Time 12/19/2019 14:50:00 EDT Exam CR Chest Portable Ordering Physician MD GRIFFITH MALAY Accession Number [id number] CPT4 Codes 02605 () Reason For Exam Med Port placement She is in [facility] room 12. She can go home after Dr. Griffith ok's the XRay. Please contact him at [phone] when it is available. Thanks Report CLINICAL [...] JEFFREY Transcribed Date and Time: 12/19/2019 3:06 [place] Real, [facility] Results From [facility] - 12/19/2019 3:06 PM EDT Patient Name: GONZALO DELUCA ---Diagnostic Radiology--- Exam Date/Time 12/19/2019 14:50:00 EDT Exam CR Chest Portable Ordering Physician MD GLADIS, SINHALA Accession Number [id number] CPT4 Codes 16755 () Reason For Exam Med Port placement She is in [facility] room 12. She can go home after Dr. Griffith ok's the XRay. Please contact him at [phone] when it is available. Thanks Report CLINICAL [...] JEFFREY Transcribed Date and Time: 12/19/2019 3:06 [place], [place] Basic Metabolic Panel w/ Ref familia to MGon 11-24-2019 Anion gap [Moles/Vol] 4 mmol/L [place] Calcium [Mass/Vol] 8.3 mg/dL Low 8.4 - 10. 4 mg/dL [place] Chloride [Moles/Vol] 102 mmol/L 98 - 10 7 mmol/L [place] CO2 [Moles/Vol] 27 mmol/L 22 - 30 mmol/L [place] Creatinine [Mass/Vol] 0.52 mg/dL 0.52 - 1.25 mg/dL [place] EGFR IF NonAfrican [place]uneian >90.0 >60 mL/min [place] Comment on above: KDIGO guidelines pro [...] MDRD (S/P/Bld) [Vol rate/Area] mL/min/{1.73_m2} >60 mL/min [place] Glucose [Mass/Vol] 84 mg/dL 70 - 100 mg/dL [place] Interpretation and review of laboratory results Abnormal [place] Potassium [Moles/Vol] 3.8 mmol/L 3.5 - 5.1 mmol/L [place] Sodium [Moles/Vol] 133 mmol/L Low 135 - 145 mmol/L [place] Urea nitrogen [Mass/Vol] 8 mg/dL 7 - 20 mg/d L [place] Test Performed by [facility], [address], [place], [place] [address] [place], [place] CBC Auto Differentialon 09 Absolute Baso # 0.0 10*3/uL 0 - 0.2 10*3/uL [place] Absolute Neut # 5.9 10*3/uL 1.8 - 7 10*3/uL [place] Basophils/100 WBC (Bld) 0.5 % 0 - 2 % [place] Eosinophils (Bld) [#/Vol] 0.2 10*3/uL 0 - 0.5 10*3/uL [place] Eosinophils/100 WBC (Bld) 2.6 % 1 - 6 % [place] Erythrocyte distribution width (RBC) [Ratio] 13.8 % 11.5 - 14.5 % [place] Granulocytes/100 WBC (Bld) 78.0 % 40 - 80 % [place] Hematocrit (Bld) [Volume fraction] 31.1 % Low 35 - 47 % [place] Hemoglobin (Bld) [Mass/Vol] 10.0 g/dL Low 11.7 - 16 g/dL [place] Interpretation and review of laboratory results Abnormal [place] Lymphocytes (Bld) [#/Vol] 0.9 10*3/uL Low 1 - 4.3 10*3/uL [place] Lymphocytes/100 WBC (Bld) 12.2 % Low 20 - 40 % [place] MCH (RBC) [Entitic mass] 30.5 pg 26 - 34 pg [place] MCHC (RBC) [Mass/Vol] 32.3 % 32 - 36 % [place] MCV (RBC) [Entitic vol] 94.5 fL 79 - 98 fL [place] Monocytes (Bld) [#/Vol] 0.5 10*3/uL 0 - 0.8 10*3/uL [place] Monocytes/100 WBC (Bld) 6.7 % 2 - 10 % [facility] [place] Platelet mean volume (Bld) [Entitic vol] 6.7 fL Low 7.4 - 10.4 fL [facility], [place] Platelets (Bld) [#/Vol] 378 10*3/uL 140 - 440 10*3/uL [facility], [place] RBC (Bld) [#/Vol] 3.29 10*6/uL Low 3.8 - 5.2 10*6/uL [facility], [place] WBC (Bld) [#/Vol] 7.6 10*3/uL 3.6 - 10.7 10*3/uL [facility], [place] Test Performed by [employer] [facility], [address], [place], [place] [id number] [place] [address], [place] VL DUP CAROTID BILATERALon 0 11-24-2019 Real, [facility] Incoming Cardiology Results From [facility] - 11/24/2019 9:57 AM EDT [facility] ----- Carotid Duplex Report Ordering Physician: Aparna [place] Clutch Specialist: Alexa De León Interpreting Physician: Austyn Dee MD ----- Location: [facility] ----- Indications: Right arm weakness. ----- Conclusions [...] supine position. Images were obtained using a Kigo E9 vascular ultrasound machine. ----- Findings Carotid/vertebral [...] signed by Austyn Dee MD 11/24/2019 09:57 [facility]- [place], [place] [facility] ----- Carotid Duplex Report Ordering Physician: Aparna Walter Clutch Specialist: Alexa De León Interpreting Physician: Austyn Dee MD ----- Location: [facility] ----- Indications: Right arm weakness. ----- Conclusions [...] supine position. Images were obtained using a Kigo E9 vascular ultrasound machine. ----- Findings Carotid/vertebral [...] signed by Austyn Dee MD 11/24/2019 09:57 [facility], [place] Basic Metabolic Panel w/ Ref familia to MGon 11-23-2019 Anion gap [Moles/Vol] 3 mmol/L [facility], [place] Calcium [Mass/Vol] 8.6 mg/dL 8.4 - 10. 4 mg/dL [facility], [place] Chloride [Moles/Vol] 101 mmol/L 98 - 10 7 mmol/L [facility], [place] CO2 [Moles/Vol] 31 mmol/L High 22 - 30 mmol/L [facility], [place] Creatinine [Mass/Vol] 0.55 mg/dL 0.52 - 1.25 mg/dL [facility], [place] EGFR IF NonAfrican [place]uneian >90.0 >60 mL/min [place] Comment on above: KDIGO guidelines pro [...] MDRD (S/P/Bld) [Vol rate/Area] mL/min/{1.73_m2} >60 mL/min [place] Glucose [Mass/Vol] 87 mg/dL 70 - 100 mg/dL [place] Interpretation and review of laboratory results Abnormal [place] Potassium [Moles/Vol] 4.0 mmol/L 3.5 - 5.1 mmol/L [place] Sodium [Moles/Vol] 136 mmol/L 135 - 145 mmol/L [place] Urea nitrogen [Mass/Vol] 12 mg/dL 7 - 20 mg/d L [place] Test Performed by [facility], [address] [place], [place] [address] [place], [place] CBC Auto Differentialon 09-0 Absolute Baso # 0.0 10*3/uL 0 - 0.2 10*3/uL [place] Absolute Neut # 5.3 10*3/uL 1.8 - 7 10*3/uL [place] Basophils/100 WBC (Bld) 0.6 % 0 - 2 % [place] Eosinophils (Bld) [#/Vol] 0.3 10*3/uL 0 - 0.5 10*3/uL [place] Eosinophils/100 WBC (Bld) 3.6 % 1 - 6 % [place] Erythrocyte distribution width (RBC) [Ratio] 13.7 % 11.5 - 14.5 % [place] Granulocytes/100 WBC (Bld) 73.0 % 40 - 80 % [place] Hematocrit (Bld) [Volume fraction] 30.5 % Low 35 - 47 % [place] Hemoglobin (Bld) [Mass/Vol] 9.9 g/dL Low 11.7 - 16 g/dL [place] Interpretation and review of laboratory results Abnormal [place] Lymphocytes (Bld) [#/Vol] 1.1 10*3/uL 1 - 4.3 10*3/uL [place] Lymphocytes/100 WBC (Bld) 14.8 % Low 20 - 40 % [place] MCH (RBC) [Entitic mass] 30.5 pg 26 - 34 pg [place] MCHC (RBC) [Mass/Vol] 32.3 % 32 - 36 % [place] MCV (RBC) [Entitic vol] 94.3 fL 79 - 98 fL [place] Monocytes (Bld) [#/Vol] 0.6 10*3/uL 0 - 0.8 10*3/uL [place] Monocytes/100 WBC (Bld) 8.0 % 2 - 10 % [place] Platelet mean volume (Bld) [Entitic vol] 6.6 fL Low 7.4 - 10.4 fL [place] Platelets (Bld) [#/Vol] 366 10*3/uL 140 - 440 10*3/uL [place] RBC (Bld) [#/Vol] 3.24 10*6/uL Low 3.8 - 5.2 10*6/uL [place] WBC (Bld) [#/Vol] 7.3 10*3/uL 3.6 - 10.7 10*3/uL [place] Test [facility] by [facility], [address] [place], [place] [id number] [place] [address] ECHO Complete 2D W Doppler W Coloron 11-23-2019 TRANSTHORACIC ECHOCARDIOGRAM PATIENT: Gonzalo Deluca STUDY DATE: 11/23/2019 : 1955 AGE: 64 HT/WT: 165.1 cm (65 70.8 kg in) (155.7 lb) GENDER: F BP: 124 / 79 LOCATION: [facility] PATIENT Inpatient [facility] STATUS: *ORDERING PHYSICIAN: * Lauren Serna *RN: * Alea Gomez *READING PHYSICIAN: Haritha Milligan *BRINE PROCESS OPERATOR: Haritha Vital MD [facility], [place] ----- INDICATIONS: Right hand weakness. ----- [...] Srini Vital MD 11/23/2019 11:59 Prior Signatures: [facility], [place] Real, [facility] Incoming Cardiology Results From [facility] - 11/23/2019 11:59 AM EDT TRANSTHORACIC ECHOCARDIOGRAM PATIENT: Gonzalo Deluca STUDY DATE: 11/23/2019 : 1955 AGE: 64 HT/WT: 165.1 cm (65 70.8 kg in) (155.7 lb) GENDER: F BP: 124 / 79 LOCATION: [facility] PATIENT Inpatient [facility] STATUS: *ORDERING PHYSICIAN: * Lauren Serna *RN: * Alea Gomez *READING PHYSICIAN: Haritha Milligan *BRINE PROCESS OPERATOR: * Jany Vital MD [facility], AE ----- INDICATIONS: Right hand weakness. ----- [...] Srini Vital MD 11/23/2019 11:59 Prior Signatures: [facility] CBCon 11-22-2019 Erythrocyte distribution width (RBC) [Ratio] 13.8 % 11.5 - 14.5 % [facility] Hematocrit (Bld) [Volume fraction] 29.9 % Low 35 - 47 % [facility] Hemoglobin (Bld) [Mass/Vol] 9.6 g/dL Low 11.7 - 16 g/dL [place] Interpretation and review of laboratory results Abnormal [place] MCH (RBC) [Entitic mass] 30.3 pg 26 - 34 pg [place] MCHC (RBC) [Mass/Vol] 31.9 % Low 32 - 36 % [place] MCV (RBC) [Entitic vol] 94.9 fL 79 - 98 fL [place] Platelet mean volume (Bld) [Entitic vol] 7.2 fL Low 7.4 - 10.4 fL [place] Platelets (Bld) [#/Vol] 380 10*3/uL 140 - 440 10*3/uL [place] RBC (Bld) [#/Vol] 3.15 10*6/uL Low 3.8 - 5.2 10*6/uL [place] WBC (Bld) [#/Vol] 8.9 10*3/uL 3.6 - 10.7 10*3/uL [place] Test Performed by [facility], [address], [place], [place] [address] [place] Comprehensive Metabolic Pane l w/ Reflex to MGon 11-22-2019 Albumin [Mass/Vol] 2.8 g/dL Low 3.5 - 5 g/dL [place] ALP [Catalytic activity/Vol] 77 U/L 38 - 126 U/L [place] ALT [Catalytic activity/Vol] 20 U/L 0 - 34 U/L [place] Comment on above: The ALT test is perf ormed by an updated assay method. Please note that the reference intervals have been changed and are now sex specific. Anion gap [Moles/Vol] 4 mmol/L [place] AST [Catalytic activity/Vol] 52 U/L High 15 - 46 U/L [place] Bilirubin Ql (U) 0.2 mg/dL 0.2 - 1.3 mg/dL [place] Calcium [Mass/Vol] 8.3 mg/dL Low 8.4 - 10. 4 mg/dL [place] Chloride [Moles/Vol] 103 mmol/L 98 - 10 7 mmol/L [place] CO2 [Moles/Vol] 33 mmol/L High 22 - 30 mmol/L [place] Creatinine [Mass/Vol] 0.54 mg/dL 0.52 - 1.25 mg/dL [place] EGFR IF NonAfrican [place]ian >90.0 >60 mL/min [place] Comment on above: KDIGO guidelines pro [...] MDRD (S/P/Bld) [Vol rate/Area] mL/min/{1.73_m2} >60 mL/min [place] Glucose [Mass/Vol] 99 mg/dL 70 - 100 mg/dL [place] Interpretation and review of laboratory results Abnormal [place] Potassium [Moles/Vol] 3.1 mmol/L Low 3.5 - 5.1 mmol/L [place] Protein [Mass/Vol] 5.4 g/dL Low 6.3 - 8.2 g/dL [place] Sodium [Moles/Vol] 140 mmol/L 135 - 145 mmol/L [place] Urea nitrogen [Mass/Vol] 11 mg/dL 7 - 20 mg/d L [place] EKG 12 Lead if not already d one by divya 11-22-2019 Real, [facility] Incoming Cardiology Results From [facility] - 11/22/2019 12:02 PM EDT [facility] Test Date: 2019-11-21 Pat Name: Gonzalo Deluca Department: 01 Room: 454 Gender: F Equipment Washer: RACHEL : 1955 Requested By: RAY BARROSO Order Number: [id number] Reading MD: Vicente Nanoradio Measurements Intervals [place] Rate: 89 P: 42 MS: 152 QRS: -20 QRSD: 100 T: 18 QT: 376 QTc: 458 Interpretive Statements SINUS RHYTHM Compared to ECG 08/02/2019 18:19:40 Ventricular premature complex(es) no longer present Electronically Signed On 11-22-2019 12:01:36 EDT [address] [facility] [facility] [facility] Test Date: 2019-11-21 Pat Name: Gonzalo Deluca Department: 01 Room: 454 Gender: F Equipment Washer: RACHEL : 1955 Requested By: RAY BARROSO Order Number: [id number] Reading MD: Vicente Nanoradio Measurements Intervals [place] Rate: 89 P: 42 MS: 152 QRS: -20 QRSD: 100 T: 18 QT: 376 QTc: 458 Interpretive Statements SINUS RHYTHM Compared to ECG 08/02/2019 18:19:40 Ventricular premature complex(es) no longer present Electronically Signed On 11-22-2019 12:01:36 EDT by [employer] [place] Hemoglobin A1con 11-22-2019 eAG 100 mg/dL [place] HbA1c (Bld) [Mass fraction] 5.1 % 4 - 6 % [place] Comment on above: --HgbA1C levels may not be accurate in patients who have renal disease, received recent blood transfusions, are anemic, or who have dyshemoglobinemia. Test Performed by [employer] [facility], [address] [place], [place], [place] [address] [place], [place] Lipid panel - fastingon Cholesterol [Mass/Vol] 132 mg/dL <200 [place] Cholesterol in HDL [Mass/Vol] 41 mg/dL 40 - 60 mg/dL [place] Cholesterol in LDL [Mass/Vol] 68 mg/dL <100 [place] Cholesterol.total/Choles terol in HDL [Mass ratio] 3 {ratio} [place] Comment on above: Ref Range: < 3 Low Risk for CHD 3-6 Mod Risk for CHD > 6 High Risk for CHD Triglyceride [Mass/Vol] 116 mg/dL <150 [place] Magnesiumon 11-22-2019 Magnesium [Mass/Vol] 1.9 mg/dL 1.6 - 2 .3 mg/dL [place] Test Performed by [facility], [address], [place], [place] [id number] [place] [address] Otheron 11-22-2019 Test Performed by [facility], [address], [address] VL LOWER EXTREMITY VENOUS RI GHT [id number] 11-22-2019 [facility] ----- Right Lower Extremity Venous Duplex Report Ordering Physician: Lauren Serna Clutch Specialist: Eh Rojas Interpreting Physician: Josef Cochran ----- Location: [facility] ----- Indications: Right sided swelling. ----- Conclusions [...] supine position. Images were obtained using a Kigo [id number] vascular ultrasound machine. ----- Venous flow [...] ----+ Prepared and electronically signed by Josef Cocharn 11/22/2019 14:37 [facility], [facility] Cardiology Results From Jessika/Anny - 11/22/2019 2:37 PM EDT [facility] ----- Right Lower Extremity Venous Duplex Report Ordering Physician: Lauren Serna Clutch Specialist: Eh Rojas Interpreting Physician: Josef Cochran ----- Location: [facility] ----- Indications: Right sided swelling. ----- Conclusions [...] supine position. Images were obtained using a Kigo E9 vascular ultrasound machine. ----- Venous flow [...] electronically signed by Josef Cochran 11/22/2019 14:37 [place], [place] APTTon 11-21-2019 aPTT Coag (Bld) [Time] 23.6 s 20 - 30.5 s M [place], [place] Comment on above: NOTE: The therapeuti c time for Heparin anticoagulation, based on Xa activity inhibition, is an APTT of 46-80 seconds. CBC Auto Differentialon Absolute Baso # 0.1 10*3/uL 0 - 0.2 10*3/uL [place] Absolute Neut # 4.8 10*3/uL 1.8 - 7 10*3/uL [place] Basophils/100 WBC (Bld) 0.7 % 0 - 2 % [place], [place] Eosinophils (Bld) [#/Vol] 0.3 10*3/uL 0 - 0.5 10*3/uL [place] Eosinophils/100 WBC (Bld) 3.7 % 1 - 6 % [place] Erythrocyte distribution width (RBC) [Ratio] 14.0 % 11.5 - 14.5 % [place] Granulocytes/100 WBC (Bld) 71.5 % 40 - 80 % [place] Hematocrit (Bld) [Volume fraction] 34.5 % Low 35 - 47 % [place] Hemoglobin (Bld) [Mass/Vol] 11.0 g/dL Low 11.7 - 16 g/dL [place] Interpretation and review of laboratory results Abnormal [place] Lymphocytes (Bld) [#/Vol] 1.1 10*3/uL 1 - 4.3 10*3/uL [place] Lymphocytes/100 WBC (Bld) 16.9 % Low 20 - 40 % [place] MCH (RBC) [Entitic mass] 30.4 pg 26 - 34 pg [place] MCHC (RBC) [Mass/Vol] 32.0 % 32 - 36 % [place], [place] MCV (RBC) [Entitic vol] 95.1 fL 79 - 98 fL [place] Monocytes (Bld) [#/Vol] 0.5 10*3/uL 0 - 0.8 10*3/uL [place] Monocytes/100 WBC (Bld) 7.2 % 2 - 10 % [place] Platelet mean volume (Bld) [Entitic vol] 6.7 fL Low 7.4 - 10.4 fL [place] Platelets (Bld) [#/Vol] 438 10*3/uL 140 - 440 10*3/uL [place] RBC (Bld) [#/Vol] 3.63 10*6/uL Low 3.8 - 5.2 10*6/uL [place] WBC (Bld) [#/Vol] 6.8 10*3/uL 3.6 - 10.7 10*3/uL [place] Test Performed by [facility], [address] [place] [id number] [place] [address] CT HEAD WO CONTRASTon 2019 Patient Name: GONZALO DELUCA ---CT--- Exam Date/Time 11/21/2019 16:56:[address] Head or Brain w/o Contrast Ordering Physician [id number] -RAY BARROSO Accession Number [id number] CPT4 Codes 71722 () Reason For Exam right arm weakness [...] WENDELL Transcribed Date and Time: 11/21/2019 5:09 [place], [place] Real, [facility] Incoming Radiology Results From [facility] - 11/21/2019 5:09 PM EDT Patient Name: GONZALO DELUCA ---CT--- Exam Date/Time 11/21/2019 16:56:[address] Head or Brain w/o Contrast Ordering Physician RAY ALLEN Accession Number [id number] CPT4 Codes 26004 () Reason For Exam right arm weakness [...] WENDELL Transcribed Date and Time: 11/21/2019 5:09 [place] Comprehensive Metabolic Pane l w/ Reflex to MGon 11-21-2019 Albumin [Mass/Vol] 3.3 g/dL Low 3.5 - 5 g/dL [place] ALP [Catalytic activity/Vol] 96 U/L 38 - 126 U/L [place] ALT [Catalytic activity/Vol] 23 U/L 0 - 34 U/L [place] Comment on above: The ALT test is perf ormed by an updated assay method. Please note that the reference intervals have been changed and are now sex specific. Anion gap [Moles/Vol] 4 mmol/L [place] AST [Catalytic activity/Vol] 37 U/L 15 - 46 U/L [place] Bilirubin Ql (U) 0.1 mg/dL Low 0.2 - 1.3 mg/dL [place] Calcium [Mass/Vol] 9.1 mg/dL 8.4 - 10. 4 mg/dL [place] Chloride [Moles/Vol] 100 mmol/L 98 - 10 7 mmol/L [place] CO2 [Moles/Vol] 37 mmol/L High 22 - 30 mmol/L [place] Creatinine [Mass/Vol] 0.66 mg/dL 0.52 - 1.25 mg/dL [place] EGFR IF NonAfrican [place]uneian >90.0 >60 mL/min [place] Comment on above: KDIGO guidelines pro [...] MDRD (S/P/Bld) [Vol rate/Area] mL/min/{1.73_m2} >60 mL/min [place] Glucose [Mass/Vol] 93 mg/dL 70 - 100 mg/dL [place] Interpretation and review of laboratory results Abnormal [place] Potassium [Moles/Vol] 3.4 mmol/L Low 3.5 - 5.1 mmol/L [place] Protein [Mass/Vol] 6.3 g/dL 6.3 - 8.2 g/dL [place] Sodium [Moles/Vol] 141 mmol/L 135 - 145 mmol/L [place] Urea nitrogen [Mass/Vol] 12 mg/dL 7 - 20 mg/d L [place] Test Performed by [facility], [address] Magnesiumon 11-21-2019 Magnesium [Mass/Vol] 2.0 mg/dL 1.6 - 2 .3 mg/dL [place] Test Performed by [facility], [facility] [address] Otheron 11-21-2019 Test Performed by [facility], [facility] [address] POCT Glucoseon 11-21-2019 Glucose [Mass/Vol] 94 mg/dL 70 - 100 mg/dL [place] Comment on above: Test performed by ucose meter. Results may be 10%-15% lower than serum/plasma values. (CLIA ID [id number]) Test Performed by [facility], [address] Protime-INRon 11-21-2019 INR Coag (PPP) [Relative time] 1.0 {INR} [place], [place] Comment on above: Recommended Anticoag ulant [...] [Time] 10.1 s 9 - 12 s [place], [place] Comment on above: . Troponinon 11-21-2019 Troponin I.cardiac [Mass/Vol] ng/mL 0 - 0.034 ng/mL [place] Comment on above: . [facility], [address] [place], [place], [place] [address] [place] [id number] 11-13-2019 SARS-CoV-2 SARS-CoV-2 --> Statu s: F Not Detected Expected Result: Not Detected _ Real-time, RT-PCR performed on the [employer] System by the [facility] Microbiology Service. Negative results do not preclude SARS-CoV-2 infection and should not be used as the sole basis for treatment or other patient management decisions. This assay was developed by [employer] and distributed under an Emergency Use Authorization (EUA) granted by the FDA for the qualitative detection of SARS-CoV-2 nucleic acid. Results were determined from a pool consisting of specimens from additional patients. This test was modified, and its performance characteristics, showing minimal loss of sensitivity, have been validated by the [facility] Microbiology Service. Approval is pending review by the U. S. Food and Drug Administration. If symptoms are severe and persist, testing a new specimen may be warranted. Additionally, IgG testing may be considered for patients more than 7-10 days post onset of symptoms. Expected Result: Not Detected _ Real-time, RT-PCR performed on the [employer] System by the [facility] Service. Negative results do not preclude SARS-CoV-2 infection and should not be used as the sole basis for treatment or other patient management decisions. This assay was developed by [employer] and distributed under an Emergency Use Authorization (EUA) granted by the FDA for the qualitative detection of SARS-CoV-2 nucleic acid. Results were determined from a pool consisting of specimens from additional patients. This test was modified, and its performance characteristics, showing minimal loss of sensitivity, have been validated by the [facility]biology [facility]. Approval is pending review by the U. S. Food and Drug Administration. If symptoms are severe and persist, testing a new specimen may be warranted. Additionally, IgG testing may be considered for patients more than 7-10 days post onset of symptoms. Normal [facility] Comment on above: Order Comment: Speci men Source Comment:Nasopharyngeal Swab Performed By: #### C OVID ####[facility] [place], [place] Basic Metabolic Panelon 08-2 Calcium [Mass/Vol] 9.2 mg/dL Normal 8.4-10.[address] [facility] Comment on above: Performed By: #### B MP3, HEMDF #### [facility] [address] [place], [place] Glucose [Mass/Vol] 120 mg/dL High 70-[address] [facility] Comment on above: Performed By: #### B MP3, HEMDF #### [facility] [address] [place], [place] Urea nitrogen [Mass/Vol] 9 mg/dL Normal 7-[address] [facility] Comment on above: Performed By: #### B MP3, HEMDF #### [facility] [address] [place], [place] Anion gap [Moles/Vol] 7 Normal [facility] Comment on above: Performed By: #### B MP3, HEMDF #### [facility] [address] [place], [place] CO2 [Moles/Vol] 31 mmol/L High 22-[address] [facility] Comment on above: Performed By: #### B MP3, HEMDF #### [facility] [address] [place], [place] Creatinine [Mass/Vol] 0.49 mg/dL Low 0.52-1.25 [facility] Comment on above: Performed By: #### B MP3, HEMDF #### [facility] [address] [place], [place] GFR/1.73 sq M predicted among blacks MDRD (S/P/Bld) [Vol rate/Area] mL/min/{1.73_m2} Normal >[address] [facility] Comment on above: Performed By: #### B MP3, HEMDF #### [place] [address] [place] [address] GFR/1.73 sq M predicted among non-blacks MDRD (S/P/Bld) [Vol rate/Area] mL/min/{1.73_m2} Normal >[address] [facility] Comment on above: Result Comment: KDIG [...] Performed By: #### B MP3, HEMDF #### [place] [address] [place], [place] Potassium [Moles/Vol] 2.9 mmol/L Low 3.5-5.1 [facility] Comment on above: Performed By: #### B MP3, HEMDF #### [facility] [address] [place] [address] Chloride [Moles/Vol] 103 mmol/L Normal 98-107 [facility] Comment on above: Performed By: #### B MP3, HEMDF #### [address] [address] Sodium [Moles/Vol] 140 mmol/L Normal 135-[address] [facility] Comment on above: Performed By: #### B MP3, HEMDF #### [address] [place] [address] [place] [address] CR Chest Portableon 11-12-19 20 CR Chest Portable Patient Name: GONZALO DELUCA Diagnostic Radiology Exam Date/Time 11/12/2019 20:13:01 EDT Exam CR Chest Portable Ordering Physician NADEEM CASEY JENNIFER L. Accession Number [id number] CPT4 Codes 11382 () Reason For Exam cough and fever [...] Transcribed Date and Time: 11/12/2019 8:[address] [facility] Hemogram w/ Autodiffon 11-11 Abs Baso Cnt 0.1 10*3/uL Normal 0.0-0.2 [facility] Comment on above: Performed By: #### B MP3, HEMDF #### [facility] [address] [place], [place] Abs Neutrophile Cnt 12.0 10*3/uL High 1.8-7.0 [facility] Comment on above: Performed By: #### B MP3, HEMDF #### [facility] [address] [place], [place] Basophils/100 WBC (Bld) 0.4 % Normal 0.0-2.0 [facility] Comment on above: Performed By: #### B MP3, HEMDF #### [facility] [address] [place], [place] Eosinophils (Bld) [#/Vol] 0.2 10*3/uL Normal 0.0-0.[address] [facility] Comment on above: Performed By: #### B MP3, HEMDF #### [place] [address] [address] [place], [place] Eosinophils/100 WBC (Bld) 1.6 % Normal 1.0-6.[address] [facility] Comment on above: Performed By: #### B MP3, HEMDF #### [place] [address] [address] [place], [place] Erythrocyte distribution width (RBC) [Ratio] 14.2 % Normal 11.5-14.[address] [facility] Comment on above: Performed By: #### B MP3, HEMDF #### [place] [address] [address] [place], [place] Granulocytes/100 WBC (Bld) 81.3 % High 40.0-80.[address] [facility] Comment on above: Performed By: #### B MP3, HEMDF #### [place] [address] [address] [place], [place] Hematocrit (Bld) [Volume fraction] 38.0 % Normal 35.0-47.[address] [facility] Comment on above: Performed By: #### B MP3, HEMDF #### [place] [address] [address] [place], [place] Hemoglobin (Bld) [Mass/Vol] 12.9 g/dL Normal 11.7-16.[address] [facility] Comment on above: Performed By: #### B MP3, HEMDF #### [place] [address] [address] [place], [place] Lymphocytes (Bld) [#/Vol] 1.4 10*3/uL Normal 1.0-4.[address] [facility] Comment on above: Performed By: #### B MP3, HEMDF #### [place] [address] [address] [place], [place] Lymphocytes/100 WBC (Bld) 9.3 % Low 20.0-40.[address] [facility] Comment on above: Performed By: #### B MP3, HEMDF #### [facility] [address] [place], [place] MCH (RBC) [Entitic mass] 32.0 pg Normal 26.0-34.[address] [facility] Comment on above: Performed By: #### B MP3, HEMDF #### [facility] [address] [place], [place] MCHC (RBC) [Mass/Vol] 34.0 % Normal 32.0-36.0 [facility] Comment on above: Performed By: #### B MP3, HEMDF #### [place] [address] [address] [place], [place] MCV (RBC) [Entitic vol] 94.1 fL Normal 79.0-98.0 [facility] Comment on above: Performed By: #### B MP3, HEMDF #### [place] [address] [place], [place] Monocytes (Bld) [#/Vol] 1.1 10*3/uL High 0.0-0.[address] [facility] Comment on above: Performed By: #### B MP3, HEMDF #### [place] [address] [address] [place], [place] Monocytes/100 WBC (Bld) 7.4 % Normal 2.0-10.0 [facility] Comment on above: Performed By: #### B MP3, HEMDF #### [place] [address] [address] [place], [place] Platelet mean volume (Bld) [Entitic vol] 6.8 fL Low 7.4-10.[address] [facility] Comment on above: Performed By: #### B MP3, HEMDF #### [place] [address] [address] [place], [place] Platelets (Bld) [#/Vol] 526 10*3/uL High 140-[address] [facility] Comment on above: Performed By: #### B MP3, HEMDF #### [place] [address] [address] [place], [place] RBC (Bld) [#/Vol] 4.03 10*6/uL Normal 3.80-5.[address] [facility] Comment on above: Performed By: #### B MP3, HEMDF #### [email or web address] [address] [place] [address] WBC (Bld) [#/Vol] 14.8 10*3/uL High 3.6-10.[address] [facility] Comment on above: Performed By: #### B MP3, HEMDF #### [email or web address] [address] [place] [address] VL Venous Duplex US Lower Ex t Righton 11-10-2019 VL Venous Duplex US Lower Ext Right Patient Name: GONZALO DELUCA Ultrasound Exam Date/Time 11/10/2019 18:25:00 EDT Exam VL Venous Duplex US Lower Ext Right Ordering Physician [id number] -TANI JOSEPH Accession Number [id number] CPT4 Codes 90879 () Reason For Exam Other specified soft tissue disorders Report [facility] ----- Right Lower Extremity Venous Duplex Report Ordering Physician: Tani Joseph Clutch Specialist: Luda Alonso Interpreting Physician: Ramses Mcgrath MD ----- Location: [facility] Emergency Dept at [place] ----- Indications: Leg swelling. Pt s/p hysterectomy [...] supine position. Images were obtained using a Fabio i700 Aplio vascular ultrasound machine. ----- Venous flow and [...] 11/12/2019 8:11 am Signed by: RAMSES MCGRATH [facility] Op Noteon 11-06-2019 Op Note PATIENT: MAHAMED DELUCA ADMISSION DATE: 11/06/2019 SURGERY DATE: 11/06/2019 DATE OF : 1955 AGE: 63 ADMITTING PHYSICIAN: Ziyad Menendez MD ATTENDING PHYSICIAN: Ziyad Menendez MD DICTATING PHYSICIAN: Ziyad Menendez MD OPERATIVE RECORD Procedure: ABDOMINAL RADICAL HYSTERECTOMY WITH BSO AND PELVIC LYMPH NODE DISSECTION. Preoperative Diagnosis: Cervical cancer stage IB2. Postoperative Diagnosis: Cervical cancer stage IB2. Anesthesia: General. Diversity Specialist : Dr. Beth. Description of Findings: No [...] cuff was closed using interrupted 0 Vicryl yefiwx-by-ocaam. The abdomen and pelvis was then copiously [...] EBL about 250 cc. Diskriter Job ID: [id number] Ziyad Menendez MD DOD:11/06/2019 10:13 A /geraldine DOT:11/06/2019 10:45 A Job Number: [id number] Document Number: [id number] cc: Ziyad Menendez MD [address] [facility] [id number] Angle Case MD [address] [facility] Surgical Pathologyon 020 Surgical Pathology [id number] [facility] 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 Multiple artists' booking representative sections are submitted. The left fallopian [...] masses or lesions are grossly identified. Multiple artists' booking representative sections are submitted. Cassette Summary: 1 - 4 is ectocervix with vaginal cuff margin from 6 o'clock to 9 o'clock, entirely submitted; 5 is artists' booking representative 9 o'clock to 12 o'clock; 6 - 8 is 3 o'clock to 6 o'clock, entirely submitted; 9 is artists' booking representative 12 o'clock to 3 o'clock; 10 [...] lower uterine segment; 20 and 21 is artists' booking representative right parametrium; 22 is artists' booking representative left parametrium; 23 is left ovary; [...] from the specimen is submitted into 13. [facility] Disclaimer: The following statement applies to all immunohistochemistry, in situ hybridization, molecular studies, and immunofluorescence testing. The use of one or more reagents in the above tests is regulated as an analyte specific reagent (ASR). These tests were developed and their performance characteristics determined by the clinical laboratories of [facility]. They have not been cleared by the [...] negativity on decalcified specimens. Professional Performing Location: [address] [address]. DEPARTMENT OF PATHOLOGY AND LABORATORY MEDICINE [place], [place] [address] [facility] TS GELon 11-05-2019 TS GEL ABO Group: A Rh, Gel: POS Antibody Screen Gel: NEG Normal [facility] Comment on above: Performed By: #### T SGL ####[place] [address] TYPE AND SCREENon 11-05-2019 Sodium [Moles/Vol] A [facility] [place], [place] Sodium [Moles/Vol] Positive [facility] [place], [place] Sodium [Moles/Vol] Negative [facility], [place] Test Performed by [address] [place] [address], [place] CNPLupe 10-31-2019 CNPN Telephone ([facility]) GONZALO DELUCA ([id number]) 1955 F Date Time Provider Department 10/31/19 AMELIE SOUSA ([employer] JOSE LUIS During your visit today, we recorded the [...] Encounter Status:Closed by AMELIE ZAYAS on 10/31/19 [facility] PROGRESSon 10-31-2019 PROGRESS HNO ID: [id number] Author: Ankit Cook Service: ? Author Type: [...] stains were performed and evaluated at the [facility] using block B1. 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 ?P53 shows wild type expression. ?ER shows moderate expression in 30% of tumor cells. ?MS is negative. 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 Menendez 11/06/201904/01 Pelvic nodes positive, Ao nodes not sampled 10mm stromal invasion Planned for adjuvant chemoRT at [facility] Ankit Cook MD 5min spent counseling the pateint by telephone Normal [facility] Basic Metabolic Panelon 08-0 Anion gap [Moles/Vol] 6 mmol/L [facility], [place] Calcium [Mass/Vol] 9.7 mg/dL 8.4 - 10. 4 mg/dL [place] Chloride [Moles/Vol] 102 mmol/L 98 - 10 7 mmol/L [place] CO2 [Moles/Vol] 32 mmol/L High 22 - 30 mmol/L [place] Creatinine [Mass/Vol] 0.57 mg/dL 0.52 - 1.25 mg/dL [place] EGFR IF NonAfrican [place]ian >90.0 >60 mL/min [place] Comment on above: KDIGO guidelines pro [...] MDRD (S/P/Bld) [Vol rate/Area] mL/min/{1.73_m2} >60 mL/min [place] Glucose [Mass/Vol] 111 mg/dL High 70 - 100 mg/dL [place] Potassium [Moles/Vol] 4.1 mmol/L 3.5 - 5.1 mmol/L [place] Sodium [Moles/Vol] 140 mmol/L 135 - 145 mmol/L [place] Urea nitrogen [Mass/Vol] 20 mg/dL 7 - 20 mg/d L [place] CT ABDOMEN PELVIS W CONTRAST on 10-27-2019 Real, Abe Incoming Radiology Results From [facility] - 10/27/2019 5:10 PM EDT Patient Name: GONZALO DELUCA ---CT--- Exam Date/Time 10/27/2019 16:53:[address] Abdomen/Pelvis w/ IV Contrast (IV Onl Ordering Physician MD JAMIE, ANKIT French Accession Number [id number] CPT4 Codes 79068 (CT Abdomen/Pelvis w/ IV Contrast (IV Onl), Q9967 (CT ISOVUE 370MG/ML&[id number]&M L&1) Reason For Exam RUQ/RIGHT flank pain, [...] R Transcribed Date and Time: 10/27/2019 5:09 [place] Patient Name: GONZALO DELUCA ---CT--- Exam Date/Time 10/27/2019 16:53:[address] Abdomen/Pelvis w/ IV Contrast (IV Onl Ordering Physician MD JAMIE, ANKIT French Accession Number [id number] CPT4 Codes 18953 (CT Abdomen/Pelvis w/ IV Contrast (IV Onl), Q9967 (CT ISOVUE 370MG/ML&[id number] L&1) Reason For Exam RUQ/RIGHT flank pain, [...] R Transcribed Date and Time: 10/27/2019 5:09 [place] Hemogram (CBC) w/Auto Diffon 10-27-2019 Absolute Baso # 0.1 10*3/uL 0 - 0.2 10*3/uL [place] Absolute Neut # 9.8 10*3/uL High 1.8 - 7 10*3/uL [place] Basophils/100 WBC (Bld) 0.4 % 0 - 2 % [place] Eosinophils (Bld) [#/Vol] 0.5 10*3/uL 0 - 0.5 10*3/uL [place] Eosinophils/100 WBC (Bld) 4.0 % 1 - 6 % [place] Erythrocyte distribution width (RBC) [Ratio] 14.4 % 11.5 - 14.5 % [place] Granulocytes/100 WBC (Bld) 76.6 % 40 - 80 % [place] Hematocrit (Bld) [Volume fraction] 41.9 % 35 - 47 % [place] Hemoglobin (Bld) [Mass/Vol] 13.7 g/dL 11.7 - 16 g/dL [place] Lymphocytes (Bld) [#/Vol] 1.5 10*3/uL 1 - 4.3 10*3/uL [place] Lymphocytes/100 WBC (Bld) 12.1 % Low 20 - 40 % [place] MCH (RBC) [Entitic mass] 30.3 pg 26 - 34 pg [place] MCHC (RBC) [Mass/Vol] 32.6 % 32 - 36 % [place] MCV (RBC) [Entitic vol] 93.1 fL 79 - 98 fL [place], [place] Monocytes (Bld) [#/Vol] 0.9 10*3/uL High 0 - 0.8 10*3/uL [place] Monocytes/100 WBC (Bld) 6.9 % 2 - 10 % [place] Platelet mean volume (Bld) [Entitic vol] 7.1 fL Low 7.4 - 10.4 fL [place] Platelets (Bld) [#/Vol] 413 10*3/uL 140 - 440 10*3/uL [place] RBC (Bld) [#/Vol] 4.50 10*6/uL 3.8 - 5.2 10*6/uL [place] WBC (Bld) [#/Vol] 12.8 10*3/uL High 3.6 - 10.7 10*3/uL [place] Hepatic Function Panelon Albumin [Mass/Vol] 4.2 g/dL 3.5 - 5 g/dL [place] ALP [Catalytic activity/Vol] 116 U/L 38 - 126 U/L [place] ALT [Catalytic activity/Vol] 42 U/L High 0 - 34 U/L [place] Comment on above: The ALT test is perf ormed by an updated assay method. Please note that the reference intervals have been changed and are now sex specific. AST [Catalytic activity/Vol] 47 U/L High 15 - 46 U/L [place] Bilirubin Ql (U) 0.4 mg/dL 0.2 - 1.3 mg/dL [place] Bilirubin.direct [Mass/Vol] 0.0 mg/dL 0 - 0.3 mg/dL [place] Protein [Mass/Vol] 7.5 g/dL 6.3 - 8.2 g/dL [place] Lipaseon 10-27-2019 Lipase [Catalytic activity/Vol] 72 U/L 23 - 300 U/L [facility] [employer] [employer] Otheron 10-27-2019 Interpretation and review of laboratory results Abnormal [place], [place] Test Performed by [employer], [address], [place], [place] [address] [place], [place] LUMBAR SPINE WO CONTRASTo n 10-21-2019 Patient Name: GONZALO DELUCA ---CT--- Exam Date/Time 10/21/2019 21:54:[address] Spine Lumbar w/o Contrast Ordering Physician DO OTTO DAVID J Accession Number [id number] CPT4 Codes 29786 () Reason For Exam Acute onset T [...] WENDELL Transcribed Date and Time: 10/21/2019 10:26 [place], [place] Real [facility] Incoming Radiology Results From [facility] - 10/21/2019 10:26 PM EDT Patient Name: GONZALO DELUCA ---CT--- Exam Date/Time 10/21/2019 21:54:[address] Spine Lumbar w/o Contrast Ordering Physician DO OTTO DAVID J Accession Number [id number] CPT4 Codes 37263 () Reason For Exam Acute onset T [...] WENDELL Transcribed Date and Time: 10/21/2019 10:26 [place] CT THORACIC SPINE WO MIHAI Cee 10-21-2019 Patient Name: GONZALO DELUCA ---CT--- Exam Date/Time 10/21/2019 20:45:[address] Spine Thoracic w/o Contrast Ordering Physician DO OTTO DAVID J Accession Number [id number] CPT4 Codes 71281 () Reason For Exam Acute onset T [...] WENDELL Transcribed Date and Time: 10/21/2019 10:26 [place] Real, [facility] Incoming Radiology Results From [facility] - 10/21/2019 10:26 PM EDT Patient Name: GONZALO DELUCA ---CT--- Exam Date/Time 10/21/2019 20:45:[address] Spine Thoracic w/o Contrast Ordering Physician DO OTTO DAVID J Accession Number [id number] CPT4 Codes 98979 () Reason For Exam Acute onset T [...] WENDELL Transcribed Date and Time: 10/21/2019 10:26 [facility] 10-19-2019 PROGRESS HNO ID: [id number] Author: Ankit Cook Service: ? Author Type: [...] stains were performed and evaluated at the [facility] using block B1. 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 ?P53 shows wild type expression. ?ER shows moderate expression in 30% of tumor cells. ?MS is negative. ?An RNA in situ hybridization [...] has appt for 2nd opinion at [facility] 1y [facility] brielle Fish per pt, follow up encouraged Telephone encounter after MR and PET Ankit Cook MD 9min spent counseling the patient by telephone. [facility] ALLIED [facility] 09-27-2019 ALLIED HEALTH HNO ID: [id number] Author: ALIYA Choi (Ct) Service: Radiology Author Type: Clinical Equipment Washer Type: Allied Health Filed: 09/27/2019 9:15 AM [...] ALIYA Choi September 27, 2019 9:14 AM [facility] FEMALE PELVIS TRANSABD LT Don 09-27-2019 FEMALE PELVIS TRANSABD LTD * * *Final Report* * * DATE OF EXAM: Sep 27 2019 8:58AM MDU 1059 - FEMALE PELVIS TRANSABD LTD / PROCEDURE REASON: N95.5-Kzdi-xslejvrkng bleeding * * * * Physician Interpretation [...] uterine segment. Pelvic MRI may be helpful. [employer] Cell Battery Assembler: ANGEL Transcribe Date/Time: Sep 27 2019 5:07P Dictated by : SAAD ESQUIVEL MD This examination was interpreted and the report reviewed and electronically signed by: SAAD ESQUIVEL MD on Sep 27 2019 5:14PM EST [id number] [facility] FEMALE PELVIS TRANSVAGon 09-27-2019 US FEMALE PELVIS TRANSVAG * * *Final Report* * * DATE OF EXAM: Sep 27 2019 8:58AM MARCO 1060 - US FEMALE PELVIS TRANSVAG / PROCEDURE REASON: N95.1-Mpkq-wljvvjthzn bleeding * * * * Physician Interpretation [...] uterine segment. Pelvic MRI may be helpful. [employer] Battery Assembler: ANGEL Transcribe Date/Time: Sep 27 2019 5:07P Dictated by : SAAD ESQUIVEL MD This examination was interpreted and the report reviewed and electronically signed by: SAAD ESQUIVEL MD on Sep 27 2019 5:14PM EST [id number] Normal [facility] Basic Metabolic Panelon 07-19 Anion gap [Moles/Vol] 8 mmol/L [place] Calcium [Mass/Vol] 8.7 mg/dL 8.4 - 10. 4 mg/dL [place] Chloride [Moles/Vol] 105 mmol/L 98 - 10 7 mmol/L [place] CO2 [Moles/Vol] 26 mmol/L 22 - 30 mmol/L [place] Creatinine [Mass/Vol] 0.5 mg/dL Low 0.52 - 1.25 mg/dL [place] EGFR IF NonAfrican Bruneian >90.0 >60 mL/min [place] Comment on above: KDIGO guidelines pro [...] MDRD (S/P/Bld) [Vol rate/Area] mL/min/{1.73_m2} >60 mL/min [place] Glucose [Mass/Vol] 145 mg/dL High 70 - 100 mg/dL [place] Interpretation and review of laboratory results Abnormal [place] Potassium [Moles/Vol] 4.0 mmol/L 3.5 - 5.1 mmol/L [place] Sodium [Moles/Vol] 139 mmol/L 135 - 145 mmol/L [place] Urea nitrogen [Mass/Vol] 17 mg/dL 7 - 20 mg/d L [place] Test Performed by [facility], [address], [place], [place] [address] [place] CBC Auto Differentialon 05- Absolute Baso # 0.0 10*3/uL 0 - 0.2 10*3/uL [place] Absolute Neut # 13.6 10*3/uL High 1.8 - 7 10*3/uL [place] Basophils/100 WBC (Bld) 0.2 % 0 - 2 % [place] Eosinophils (Bld) [#/Vol] 0.0 10*3/uL 0 - 0.5 10*3/uL [place] Eosinophils/100 WBC (Bld) 0.0 % Low 1 - 6 % [place] Erythrocyte distribution width (RBC) [Ratio] 13.8 % 11.5 - 14.5 % [place] Granulocytes/100 WBC (Bld) 92.2 % High 40 - 80 % [place] Hematocrit (Bld) [Volume fraction] 33.9 % Low 35 - 47 % [place] Hemoglobin (Bld) [Mass/Vol] 11.1 g/dL Low 11.7 - 16 g/dL [place] Interpretation and review of laboratory results Abnormal [place] Lymphocytes (Bld) [#/Vol] 0.6 10*3/uL Low 1 - 4.3 10*3/uL [place] Lymphocytes/100 WBC (Bld) 3.9 % Low 20 - 40 % [place] MCH (RBC) [Entitic mass] 31.0 pg 26 - 34 pg [place] MCHC (RBC) [Mass/Vol] 32.8 % 32 - 36 % [place] MCV (RBC) [Entitic vol] 94.6 fL 79 - 98 fL [place] Monocytes (Bld) [#/Vol] 0.5 10*3/uL 0 - 0.8 10*3/uL [place] Monocytes/100 WBC (Bld) 3.7 % 2 - 10 % [place] Platelet mean volume (Bld) [Entitic vol] 7.5 fL 7.4 - 10.4 fL [place] Platelets (Bld) [#/Vol] 208 10*3/uL 140 - 440 10*3/uL [place] RBC (Bld) [#/Vol] 3.58 10*6/uL Low 3.8 - 5.2 10*6/uL [place] WBC (Bld) [#/Vol] 14.7 10*3/uL High 3.6 - 10.7 10*3/uL [place] Test [facility], [address] [place] [address] [place] Basic Metabolic Panelon 05-1 Anion gap [Moles/Vol] 8 mmol/L [place] Calcium [Mass/Vol] 8.2 mg/dL Low 8.4 - 10. 4 mg/dL [place] Chloride [Moles/Vol] 99 mmol/L 98 - 10 7 mmol/L [place] CO2 [Moles/Vol] 28 mmol/L 22 - 30 mmol/L [place] Creatinine [Mass/Vol] 0.49 mg/dL Low 0.52 - 1.25 mg/dL [place] EGFR IF NonAfrican [place]uneian >90.0 >60 mL/min [place] Comment on above: KDIGO guidelines pro [...] MDRD (S/P/Bld) [Vol rate/Area] mL/min/{1.73_m2} >60 mL/min [place] Glucose [Mass/Vol] 185 mg/dL High 70 - 100 mg/dL [place] Interpretation and review of laboratory results Abnormal [place] Potassium [Moles/Vol] 3.7 mmol/L 3.5 - 5.1 mmol/L [place] Sodium [Moles/Vol] 134 mmol/L Low 135 - 145 mmol/L [place] Urea nitrogen [Mass/Vol] 11 mg/dL 7 - 20 mg/d L [place] CBC Auto Differentialon 05- Absolute Baso # 0.0 10*3/uL 0 - 0.2 10*3/uL [place] Absolute Neut # 10.2 10*3/uL High 1.8 - 7 10*3/uL [place] Basophils/100 WBC (Bld) 0.0 % 0 - 2 % [place] Eosinophils (Bld) [#/Vol] 0.0 10*3/uL 0 - 0.5 10*3/uL [place] Eosinophils/100 WBC (Bld) 0.0 % Low 1 - 6 % [place] Erythrocyte distribution width (RBC) [Ratio] 14.0 % 11.5 - 14.5 % [place] Granulocytes/100 WBC (Bld) 94.9 % High 40 - 80 % [place] Hematocrit (Bld) [Volume fraction] 35.8 % 35 - 47 % [place] Hemoglobin (Bld) [Mass/Vol] 11.9 g/dL 11.7 - 16 g/dL [place] Interpretation and review of laboratory results Abnormal [place] Lymphocytes (Bld) [#/Vol] 0.3 10*3/uL Low 1 - 4.3 10*3/uL [place] Lymphocytes/100 WBC (Bld) 3.1 % Low 20 - 40 % [place] MCH (RBC) [Entitic mass] 31.3 pg 26 - 34 pg [place] MCHC (RBC) [Mass/Vol] 33.1 % 32 - 36 % [place] MCV (RBC) [Entitic vol] 94.5 fL 79 - 98 fL [place] Monocytes (Bld) [#/Vol] 0.2 10*3/uL 0 - 0.8 10*3/uL [place] Monocytes/100 WBC (Bld) 2.0 % 2 - 10 % [place] Platelet mean volume (Bld) [Entitic vol] 7.0 fL Low 7.4 - 10.4 fL [place] Platelets (Bld) [#/Vol] 180 10*3/uL 140 - 440 10*3/uL [place] RBC (Bld) [#/Vol] 3.79 10*6/uL Low 3.8 - 5.2 10*6/uL [place] WBC (Bld) [#/Vol] 10.8 10*3/uL High 3.6 - 10.7 10*3/uL [place] Test Performed by [facility], [address] [place], [place] [address] [place] Gram Stainon 08-03-2019 INR Coag (Bld) [Relative time] Moderate epithelial cells/lpf. Many polymorphonuclear cells/lpf. Moderate gram positive cocci Rare gram negative bacilli. Few gram positive bacilli. Few yeast. [place] Test Performed by [facility], [address] [place] [id number] Specimen Source Comment:Sputum Expectorated [place] Legionella Antigen, Urineon 08-03-2019 LEGIONELLA ANTIGEN Legionella antigen N OT DETECTED. [place] Magnesiumon 08-03-2019 Magnesium [Mass/Vol] 2.1 mg/dL 1.6 - 2 .3 mg/dL [place] Otheron 08-03-2019 Test Performed by [facility], [address], [place], [place] [address] [place] Test Performed by [facility], [address] [place] [address] Specimen Source Comment:Urine, clean catch [place] Respiratory Virus PCR Panelo n 08-03-2019 Respiratory Panel PCR NEGATIVE: No targe ts were detected by the [employer] Upper Respiratory Pathogens PCR Panel. PLEASE NOTE: This assay DOES NOT detect SARS-CoV-2/COVID-19. _ The [employer] Upper Respiratory Pathogens PCR Panel can detect the following targets: Adenovirus, Coronavirus 229E, Coronavirus HKU1, Coronavirus NL63, Coronavirus OC43, Human Metapneumovirus, Human Rhinovirus/Enterovirus , Influenza A, Influenza B, Parainfluenza Virus 1, Parainfluenza Virus 2, Parainfluenza Virus 3, Parainfluenza Virus 4, Respiratory Syncytial Virus, Bordetella pertussis, Bordetella parapertussis, Chlamydia pneumoniae, Mycoplasma pneumoniae [place] Test Performed by [facility], [address] [place] [id number] Specimen Source Comment:Nasopharyngeal Swab [place] STREP PNEUMONIAE ANTIGENon 0 08-03-2019 STREP PNEUMONIAE ANTIGEN, URINE Strep pneumo antigen NOT DETECTED. [place] Urinalysison 08-03-2019 Appearance (U) Clear Clear NA [place] Comment on above: . Bilirubin Urine Negative Negative mg/dL [place] Comment on above: . Color (U) Yellow Lt. Yellow NA [place] Comment on above: . Glucose, Ur Normal Normal (<70) mg/dL [place] Comment on above: . Interpretation and review of laboratory results Abnormal [place] Ketones Ql (U) Negative Negative mg/dL [place] Comment on above: . LEUKOCYTES, UA Negative Negative Sandra/uL [place] Comment on above: . Mucous Threads Few Negative /[LPF] [place] Comment on above: . Nitrite, Urine Negative Negative NA [place] Comment on above: . Occult Blood,Urine Negative Negative mg/dL [place] Comment on above: . pH (U) 6.5 [pH] [place] Comment on above: . Protein (U) [Mass/Vol] 10 mg/dL Abnormal Negative Me [place], [place] Comment on above: . RBC (U) [#/Vol] 0-2 0 - 2 /[HPF] [place] Comment on above: . Specific [place], Urine 1.014 [place] Comment on above: . Squam Epithel, UA 0-2 3 - 5 /[HPF] [place] Comment on above: . Urobilinogen, Urine 2 mg/dL Abnormal Normal (0-1) [place] Comment on above: . WBC, UA 0-2 0 - 5 /[HPF] [place] Comment on above: . Test Performed by [facility], [address] [place], [place] [address] [place] Basic Metabolic Panelon 05- Anion gap [Moles/Vol] 11 mmol/L [place] Calcium [Mass/Vol] 8.7 mg/dL 8.4 - 10. 4 mg/dL [place] Chloride [Moles/Vol] 101 mmol/L 98 - 10 7 mmol/L [place] CO2 [Moles/Vol] 26 mmol/L 22 - 30 mmol/L [place] Creatinine [Mass/Vol] 0.61 mg/dL 0.52 - 1.25 mg/dL [place] EGFR IF NonAfrican [place]uneian >90.0 >60 mL/min [place] Comment on above: KDIGO guidelines pro [...] MDRD (S/P/Bld) [Vol rate/Area] mL/min/{1.73_m2} >60 mL/min [place] Glucose [Mass/Vol] 118 mg/dL High 70 - 100 mg/dL [place] Interpretation and review of laboratory results Abnormal [place] Potassium [Moles/Vol] 3.5 mmol/L 3.5 - 5.1 mmol/L [place] Sodium [Moles/Vol] 139 mmol/L 135 - 145 mmol/L [place] Urea nitrogen [Mass/Vol] 9 mg/dL 7 - 20 mg/d L [place] Test Performed by [employer], [address] [place] [id number] [place] COVID-19on 08-02-2019 SARS-CoV-2 Not Detected Expected Result: Not Detected _ Real-time, RT-PCR performed on the [employer] System by the [facility] Microbiology Service. Negative results do not preclude SARS-CoV-2 infection and should not be used as the sole basis for treatment or other patient management decisions. This assay was developed by [employer] and distributed under an Emergency Use Authorization (EUA) granted by the FDA for the qualitative detection of SARS-CoV-2 nucleic acid. [place] Test Performed by [employer] [facility], [address] [place] [id number] Specimen Source Comment:Nasopharyngeal Swab [place] Hemogram (CBC)on 08-02-2019 Erythrocyte distribution width (RBC) [Ratio] 14.1 % 11.5 - 14.5 % [place] Hematocrit (Bld) [Volume fraction] 37.5 % 35 - 47 % [place] Hemoglobin (Bld) [Mass/Vol] 12.5 g/dL 11.7 - 16 g/dL [place] Interpretation and review of laboratory results Abnormal [place] MCH (RBC) [Entitic mass] 31.5 pg 26 - 34 pg [place] MCHC (RBC) [Mass/Vol] 33.4 % 32 - 36 % [place] MCV (RBC) [Entitic vol] 94.3 fL 79 - 98 fL [place] Platelet mean volume (Bld) [Entitic vol] 7.6 fL 7.4 - 10.4 fL [place] Platelets (Bld) [#/Vol] 196 10*3/uL 140 - 440 10*3/uL [place] RBC (Bld) [#/Vol] 3.98 10*6/uL 3.8 - 5.2 10*6/uL [place] WBC (Bld) [#/Vol] 12.6 10*3/uL High 3.6 - 10.7 10*3/uL [place] Test Performed by [facility], [address] [place], [address] Lactic Acid, Plasmaon 2019 Interpretation and review of laboratory results Abnormal [place] Lactate [Moles/Vol] 0.6 mmol/L Low 0.7 - 2 mmol/L [place] Test Performed by [facility], [address] [place], [address] Troponin x1on 08-02-2019 Troponin I.cardiac [Mass/Vol] ng/mL 0 - 0.034 ng/mL [place] Comment on above: . Test Performed by [facility], [address] XR CHEST PORTABLEon 08-02-19 20 Real, [facility] Incoming Radiology Results From [facility] - 08/02/2019 6:51 PM EDT Patient Name: GONZALO DELUCA ---Diagnostic Radiology--- Exam Date/Time 08/02/2019 18:40:13 EDT Exam CR Chest Portable Ordering Physician JOANIE ALMONTE Accession Number [id number] CPT4 Codes 47512 () Reason For Exam SOB, cough Report [...] pneumothoraces. Osseous degenerative changes. Report Dictated on Workstation: [employer] --- Final --- Dictating Physician: MD CAMACHO BRIAN Signed Date and Time: 08/02/2019 6:49 pm Signed by: MD CAMACHO BRIAN Transcribed Date and Time: 08/02/2019 6:50 [place] Patient Name: GONZALO DELUCA ---Diagnostic Radiology--- Exam Date/Time 08/02/2019 18:40:13 EDT Exam CR Chest Portable Ordering Physician JOANIE ALMONTE Accession Number [id number] CPT4 Codes 15583 () Reason For Exam SOB, cough Report [...] pneumothoraces. Osseous degenerative changes. Report Dictated on Workstation: [employer] --- Final --- Dictating Physician: MD CAMACHO BRIAN Signed Date and Time: 08/02/2019 6:49 pm Signed by: MD CAMACHO BRIAN Transcribed Date and Time: 08/02/2019 6:50 [place] Vital Signs Date Time Vital Sign Value Performing Clinician Facility 08-20-2024 10:28-0400 Body height 162.6 cm Elyssa Tesfaye NP Work Phone: [facility] 08-20-2024 10:28-0400 Body mass index (BMI) [Ratio] 16 kg/m2 Elyssa Tesfaye NP Work Phone: [facility] [employer] [facility] 08-20-2024 10:28-0400 Body temperature 96.8 [degF] Elyssa Tesfaye REHAB SERVICES AIDE Work Phone: [facility] [employer] [facility] 08-20-2024 10:28-0400 Body weight 42.27 kg Elyssa Tesfaye REHAB SERVICES AIDE Work Phone: [facility] [employer] [facility] 08-20-2024 10:28-0400 Diastolic blood pressure 67 mm[Hg] Elyssa Moservik REHAB SERVICES AIDE Work Phone: [facility] [employer] [facility] 08-20-2024 10:28-0400 Heart rate 92 /min Elyssa Moservik REHAB SERVICES AIDE Work Phone: [facility] [employer] 08-20-2024 10:28-0400 SaO2% (BldA) [Mass fraction] 91 % Elyssa Tesfaye REHAB SERVICES AIDE Work Phone: [facility] [employer] [facility] Comment on above: 4Lp 08-20-2024 10:28-0400 Systolic blood pressure 105 mm[Hg] Elyssa Tesfaye REHAB SERVICES AIDE Work Phone: [facility] [employer] [facility] 08-08-2024 13:22-0400 Heart rate 88 /min Luis E Mudrakola DO Work Phone: [facility] [employer] [facility] 08-08-2024 13:22-0400 Respiratory rate 24 /min Luis E Mudrakola DO Work Phone: [facility] [employer] [facility] 08-08-2024 13:22-0400 SaO2% (BldA) [Mass fraction] 92 % Luis E Mudrakola DO Work Phone: [facility] [employer] [facility] 08-08-2024 08:14-0400 Body temperature 97.2 [degF] Luis E Mudrakola DO Work Phone: [facility] [employer] [facility] 08-08-2024 08:14-0400 Diastolic blood pressure 64 mm[Hg] Luis E Mudrakola DO Work Phone: [facility] [employer] 08-08-2024 08:14-0400 Systolic blood pressure 99 mm[Hg] Luis E Mudrakola DO Work Phone: [facility] [employer] [facility] 08-06-2024 14:25-0400 Body height 162.6 cm Luis E Keating DO Work Phone: [facility] [employer] [facility] 08-03-2024 21:01-0400 Body mass index (BMI) [Ratio] 15.29 kg/m2 Luis E Keating DO Work Phone: [facility] [employer] [facility] 08-03-2024 21:01-0400 Body weight 40.4 kg Luis E Keating DO Work Phone: [facility] 07-30-2024 14:53-0400 Body height 164.1 cm Herminia Case MD Work Phone: [facility] 07-30-2024 14:53-0400 Body mass index (BMI) [Ratio] 15.08 kg/m2 Herminia Case MD Work Phone: [facility] 07-30-2024 14:53-0400 Body temperature 98.4 [degF] Herminia Case MD Work Phone: [facility] 07-30-2024 14:53-0400 Body weight 40.6 kg Herminia Case MD Work Phone: [facility] 07-30-2024 14:53-0400 Diastolic blood pressure 78 mm[Hg] Herminia Case MD Work Phone: [facility] 07-30-2024 14:53-0400 Heart rate 106 /min Herminia Case MD Work Phone: [facility] 07-30-2024 14:53-0400 SaO2% (BldA) [Mass fraction] 82 % Herminia Case MD Work Phone: [facility] 07-30-2024 14:53-0400 Systolic blood pressure 120 mm[Hg] Herminia Case MD Work Phone: [facility] 04-28-2024 01:19-0500 Diastolic blood pressure 78 mm[Hg] Flako Altamirano MD Work Phone: [facility] 04-28-2024 01:19-0500 Heart rate 87 /min Flako Altamirano MD Work Phone: [facility] [employer] 04-28-2024 01:19-0500 Respiratory rate 16 /min Flako Altamirano MD Work Phone: [facility] [employer] [facility] 04-28-2024 01:19-0500 SaO2% (BldA) [Mass fraction] 96 % Flako Altamirano MD Work Phone: [facility] [employer] [facility] 04-28-2024 01:19-0500 Systolic blood pressure 119 mm[Hg] Flako Altamirano MD Work Phone: [facility] [employer] [facility] 04-27-2024 23:43-0500 Body height 160 cm Flako Altamirano MD Work Phone: [facility] [employer] [facility] 04-27-2024 23:43-0500 Body mass index (BMI) [Ratio] 19.13 kg/m2 Flako Altamirano MD Work Phone: [facility] [employer] [facility] 04-27-2024 23:43-0500 Body temperature 98.1 [degF] Flako Altamirano MD Work Phone: [facility] [employer] [facility] 04-27-2024 23:43-0500 Body weight 48.99 kg Flako Altamirano MD Work Phone: [facility] [employer] [facility] 10-16-2023 21:24-0400 Body temperature 98.1 [degF] Herminia Case MD Work Phone: [facility] [employer] [facility] 10-16-2023 21:24-0400 Diastolic blood pressure 95 mm[Hg] Herminia Case MD Work Phone: [facility] [employer] 10-16-2023 21:24-0400 Heart rate 99 /min Herminia Case MD Work Phone: [facility] [employer] [facility] 10-16-2023 21:24-0400 Respiratory rate 14 /min Herminia Case MD Work Phone: [facility] [employer] 10-16-2023 21:24-0400 SaO2% (BldA) [Mass fraction] 94 % Herminia Case MD Work Phone: [facility] [employer] [facility] 10-16-2023 21:24-0400 Systolic blood pressure 125 mm[Hg] Herminia Case MD Work Phone: [facility] [employer] [facility] 09-22-2023 07:58-0400 Body temperature 97.39 [degF] Jono Weathers MD Work Phone: [facility] [employer] [facility] 09-22-2023 07:58-0400 Diastolic blood pressure 96 mm[Hg] Jono [place]s MD Work Phone: [facility] [employer] [facility] 09-22-2023 07:58-0400 Heart rate 99 /min Jono [place]s MD Work Phone: [facility] [employer] [facility] 09-22-2023 07:58-0400 Respiratory rate 17 /min Jono [place] MD Work Phone: [facility] [employer] [facility] 09-22-2023 07:58-0400 SaO2% (BldA) [Mass fraction] 96 % Jono Weathers MD Work Phone: [facility] [employer] [facility] 09-22-2023 07:58-0400 Systolic blood pressure 140 mm[Hg] Jono [place]s MD Work Phone: [facility] [employer] [facility] 09-20-2023 15:22-0400 Body height 165.1 cm Jono [place]s MD Work Phone: [facility] [employer] [facility] 09-20-2023 15:22-0400 Body mass index (BMI) [Ratio] 19.14 kg/m2 Jono Weathers MD Work Phone: [facility] [employer] [facility] 09-20-2023 15:22-0400 Body weight 52.16 kg Jono [place]s MD Work Phone: [facility] [employer] [facility] 09-08-2023 15:40-0400 Body height 164.1 cm Barbi Goldberg MD Work Phone: [facility] 09-08-2023 15:40-0400 Body mass index (BMI) [Ratio] 20.61 kg/m2 Barbi Goldberg MD Work Phone: [facility] 09-08-2023 15:40-0400 Body temperature 99.3 [degF] Barbi Goldberg MD Work Phone: [facility] 09-08-2023 15:40-0400 Body weight 55.5 kg Barbi Goldberg MD Work Phone: [facility] 09-08-2023 15:40-0400 Diastolic blood pressure 87 mm[Hg] Barbi Goldberg MD Work Phone: [facility] 09-08-2023 15:40-0400 Heart rate 105 /min Barbi Goldberg MD Work Phone: [facility] 09-08-2023 15:40-0400 SaO2% (BldA) [Mass fraction] 92 % Barbi Goldberg MD Work Phone: [facility] 09-08-2023 15:40-0400 Systolic blood pressure 139 mm[Hg] Barbi Goldberg MD Work Phone: [facility] 08-07-2023 18:00-0400 Diastolic blood pressure 79 mm[Hg] Herminia Case MD Work Phone: [facility] 08-07-2023 18:00-0400 Heart rate 97 /min Herminia Case MD Work Phone: [facility] 08-07-2023 18:00-0400 Respiratory rate 23 /min Herminia Case MD Work Phone: [facility] 08-07-2023 18:00-0400 SaO2% (BldA) [Mass fraction] 92 % Herminia Case MD Work Phone: [facility] 08-07-2023 18:00-0400 Systolic blood pressure 137 mm[Hg] Herminia Case MD Work Phone: [facility] 08-07-2023 14:41-0400 Body mass index (BMI) [Ratio] 20.8 kg/m2 Herminia Case MD Work Phone: [facility] 08-07-2023 14:41-0400 Body temperature 98.01 [degF] Herminia Case MD Work Phone: [facility] 08-07-2023 14:41-0400 Body weight 56.7 kg Herminia Case MD Work Phone: [facility] 05-02-2023 14:31-0500 Body height 164.1 cm Herminia Case MD Work Phone: [facility] 05-02-2023 14:31-0500 Body temperature 98.1 [degF] Herminia Case MD Work Phone: [facility] 05-02-2023 14:31-0500 Body weight 60.1 kg Herminia Case MD Work Phone: [facility] 05-02-2023 14:31-0500 Diastolic blood pressure 78 mm[Hg] Herminia Case MD Work Phone: [facility] 05-02-2023 14:31-0500 Heart rate 87 /min Herminia Case MD Work Phone: [facility] 05-02-2023 14:31-0500 SaO2% (BldA) [Mass fraction] 90 % Herminia Case MD Work Phone: [facility] 05-02-2023 14:31-0500 Systolic blood pressure 112 mm[Hg] Herminia Case MD Work Phone: [facility] 02-18-2023 09:31-0500 Body temperature 98.01 [degF] Lorenzo Orozco MD Work Phone: [facility] 02-18-2023 09:31-0500 Diastolic blood pressure 76 mm[Hg] Lorenzo Orozco MD Work Phone: [facility] 02-18-2023 09:31-0500 Heart rate 87 /min Lorenzo Orozco MD Work Phone: [facility] 02-18-2023 09:31-0500 Respiratory rate 20 /min Lorenzo Orozco MD Work Phone: [facility] 02-18-2023 09:31-0500 SaO2% (BldA) [Mass fraction] 97 % Lorenzo Orozco MD Work Phone: [facility] 02-18-2023 09:31-0500 Systolic blood pressure 128 mm[Hg] Lorenzo Orozco MD Work Phone: [facility] 02-14-2023 10:00-0500 Body mass index (BMI) [Ratio] 22.47 kg/m2 Lorenzo Orozco MD Work Phone: [facility] 02-14-2023 10:00-0500 Body weight 61.24 kg Lornezo Orozco MD Work Phone: [facility] 02-13-2023 19:05-0500 Body height 165.1 cm Lorenzo Orozco MD Work Phone: [facility] 01-14-2023 16:00-0400 Body height 164.1 cm Herminia Case MD Work Phone: [facility] 01-14-2023 16:00-0400 Body temperature 97.59 [degF] Herminia Case MD Work Phone: [facility] 01-14-2023 16:00-0400 Body weight 62.14 kg Herminia Case MD Work Phone: [facility] 01-14-2023 16:00-0400 Diastolic blood pressure 70 mm[Hg] Herminia Case MD Work Phone: [facility] 01-14-2023 16:00-0400 Heart rate 83 /min Herminia Case MD Work Phone: [facility] 01-14-2023 16:00-0400 SaO2% (BldA) [Mass fraction] 93 % Herminia Case MD Work Phone: [facility] 01-14-2023 16:00-0400 Systolic blood pressure 100 mm[Hg] Herminia Case MD Work Phone: [facility] 11-08-2022 08:37-0400 Heart rate 87 /min Austyn Mccann DO Work Phone: [employer] 11-08-2022 08:37-0400 Respiratory rate 16 /min Austyn Mccann DO Work Phone: [facility] [employer] 11-08-2022 08:37-0400 SaO2% (BldA) [Mass fraction] 97 % Austyn Mccann DO Work Phone: [facility] [employer] 11-08-2022 07:29-0400 Body temperature 97.81 [degF] [facility] 11-08-2022 07:29-0400 Diastolic blood pressure 63 mm[Hg] Austyn Mccann DO Work Phone: [facility] [employer] 11-08-2022 07:29-0400 Systolic blood pressure 108 mm[Hg] Austyn Mccann DO Work Phone: [facility] [employer] 11-06-2022 18:36-0400 Body height 162.6 cm Austyn Mccann DO Work Phone: [facility] [employer] 11-06-2022 18:36-0400 Body mass index (BMI) [Ratio] 22.31 kg/m2 Austyn Mccann DO Work Phone: [employer] 11-06-2022 18:36-0400 Body weight 58.97 kg Austyn Mccann DO Work Phone: [employer] 10-20-2022 14:06-0400 Body height 160 cm Kisha Afshin 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 - TONG SETTER Work Phone: [employer] 10-20-2022 14:06-0400 Body mass index (BMI) [Ratio] 23.56 kg/m2 Kisha Afshin 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 - TONG SETTER Work Phone: [employer] 10-20-2022 14:06-0400 Body weight 60.33 kg Kisha Afshin 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 - TONG SETTER Work Phone: [employer] 10-20-2022 14:06-0400 Diastolic blood pressure 83 mm[Hg] Kisha Afshin 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 - TONG SETTER Work Phone: [facility] [employer] 10-20-2022 14:06-0400 Heart rate 96 /min Kisha Pepe 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 - TONG SETTER Work Phone: [facility] [employer] 10-20-2022 14:06-0400 Systolic blood pressure 143 mm[Hg] Kisha Pepe 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 - TONG SETTER Work Phone: [facility] 09-15-2022 14:40-0400 Body height 165.1 cm Melva [place] PA-C Work Phone: [facility] 09-15-2022 14:40-0400 Body temperature 97.3 [degF] Melva [place] PA-C Work Phone: [facility] 09-15-2022 14:40-0400 Body weight 61.1 kg Melva [place] PA-C Work Phone: [facility] 09-15-2022 14:40-0400 Diastolic blood pressure 78 mm[Hg] Melva Ladonna PA-C Work Phone: [facility] 09-15-2022 14:40-0400 Heart rate 101 /min Melva [place] PA-C Work Phone: [facility] 09-15-2022 14:40-0400 SaO2% (BldA) [Mass fraction] 95 % Melva Ladonna PA-C Work Phone: [facility] 09-15-2022 14:40-0400 Systolic blood pressure 133 mm[Hg] Melva [place] PA-C Work Phone: [facility] 05-24-2022 07:52-0500 Heart rate 98 /min Martha Flores MD Work Phone: [facility] [employer] 05-24-2022 07:52-0500 Respiratory rate 16 /min Martha Flores MD Work Phone: [facility] [employer] 05-24-2022 07:52-0500 SaO2% (BldA) [Mass fraction] 92 % Martha Flores MD Work Phone: [facility] [employer] 05-24-2022 07:24-0500 Body temperature 98.49 [degF] Martha Flores MD Work Phone: [facility] [employer] 05-24-2022 07:24-0500 Diastolic blood pressure 73 mm[Hg] Martha Flores MD Work Phone: [facility] [employer] 05-24-2022 07:24-0500 Systolic blood pressure 126 mm[Hg] Matrha Flores MD Work Phone: [facility] [employer] 05-22-2022 05:38-0500 Body mass index (BMI) [Ratio] 24.32 kg/m2 Martha Flores MD Work Phone: [facility] [employer] 05-22-2022 05:38-0500 Body weight 66.3 kg Martha Flores MD Work Phone: [facility] [employer] 05-21-2022 17:58-0500 Body height 165.1 cm Martha Flores MD Work Phone: [facility] [employer] 04-21-2022 14:05-0500 Body height 165.1 cm Sally Aj 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 - TONG SETTER Work Phone: [facility] [employer] 04-21-2022 14:05-0500 Body mass index (BMI) [Ratio] 23.63 kg/m2 Sally Aj 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 - TONG SETTER Work Phone: [facility] [employer] 04-21-2022 14:05-0500 Body weight 64.41 kg Sally Aj 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 - TONG SETTER Work Phone: [facility] [employer] 04-21-2022 14:05-0500 Diastolic blood pressure 78 mm[Hg] Sally Aj 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 - TONG SETTER Work Phone: [facility] [employer] 04-21-2022 14:05-0500 Heart rate 93 /min Sally Riojasher 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 - TONG SETTER Work Phone: [facility] [employer] 04-21-2022 14:05-0500 Systolic blood pressure 122 mm[Hg] Sally Riojasher 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 - TONG SETTER Work Phone: [facility] 08-06-2021 17:18-0400 Heart rate 96 /min Herminia Case MD Work Phone: [facility] 08-06-2021 17:18-0400 SaO2% (BldA) [Mass fraction] 84 % Herminia Case MD Work Phone: [facility] 08-06-2021 16:44-0400 Diastolic blood pressure 74 mm[Hg] Herminia Case MD Work Phone: [facility] 08-06-2021 16:44-0400 Systolic blood pressure 124 mm[Hg] Herminia Case MD Work Phone: [facility] 08-06-2021 16:35-0400 Body temperature 98.8 [degF] Herminia Case MD Work Phone: [facility] 08-06-2021 16:35-0400 Body weight 58.79 kg Herminia Case MD Work Phone: [facility] 10-16-2020 14:42-0400 Body temperature 98.49 [degF] Herminia Case MD Work Phone: [facility] Work Phone: 10-16-2020 14:42-0400 Diastolic blood pressure 79 mm[Hg] Herminia Case MD Work Phone: [facility] Work Phone: 10-16-2020 14:42-0400 Heart rate 85 /min Herminia Case MD Work Phone: [facility] Work Phone: 10-16-2020 14:42-0400 Respiratory rate 20 /min Herminia Case MD Work Phone: [facility] Work Phone: 10-16-2020 14:42-0400 SaO2% (BldA) [Mass fraction] 91 % Herminia Case MD Work Phone: [facility] Work Phone: 10-16-2020 14:42-0400 Systolic blood pressure 117 mm[Hg] Herminia Case MD Work Phone: [facility] Work Phone: 03-16-2020 16:32-0500 BP Diastolic 83 mm[Hg] [place] 03-16-2020 16:32-0500 BP Systolic 133 mm[Hg] [place] 03-16-2020 16:32-0500 Pulse (Heart Rate) 101 /min [place] 03-16-2020 16:32-0500 Pulse Oximetry 94 % [place] 03-16-2020 16:32-0500 Respiratory Rate 20 /min [facility], [place] 03-16-2020 11:57-0500 BMI (Body Mass Index) 23.17 kg/m2 [place] 03-16-2020 11:57-0500 Body Temperature 98.8 [degF] [facility], [place] 03-16-2020 11:57-0500 Body weight 61.24 kg [place] 02-22-2020 09:21-0500 BP Diastolic 72 mm[Hg] Ziyad Menendez [facility] , [place] 02-22-2020 09:21-0500 BP Systolic 102 mm[Hg] Ziyad Menendez [facility] , [place] 02-22-2020 09:21-0500 Pulse (Heart Rate) 98 /min Ziyad Menendez [facility], [place] 02-22-2020 09:21-0500 Pulse Oximetry 92 % Ziyad Menendez [facility] , [place] 02-22-2020 09:21-0500 Respiratory Rate 16 /min [facility] [place] 02-22-2020 09:07-0500 BMI (Body Mass Index) 23.52 kg/m2 Ziyad Menendez [facility], [place] 02-22-2020 09:07-0500 Body weight 62.14 kg Ziyad Menendez [facility] , [place] 02-22-2020 09:07-0500 Height 162.6 cm Ziyad Alicia [facility] , [place] 02-21-2020 14:47-0500 Body Temperature 97.59 [degF] Ziyad Alicia [facility] [place] 02-21-2020 14:47-0500 BP Diastolic 74 mm[Hg] Ziyad Alicia [facility] , [place] 02-21-2020 14:47-0500 BP Systolic 113 mm[Hg] Ziyad Alicia [facility] , [place] 02-21-2020 14:47-0500 Pulse (Heart Rate) 90 /min Ziyad Alicia [facility], [place] 02-21-2020 14:47-0500 Respiratory Rate 20 /min Ziyad Alicia [facility], [place] 02-08-2020 09:28-0500 BMI (Body Mass Index) 23.48 kg/m2 Ziyad Alicia [facility], [place] 02-08-2020 09:28-0500 Body Temperature 98.6 [degF] Ziyad Alicia [facility], [place] 02-08-2020 09:28-0500 Body weight 62.05 kg Ziyad Alicia [facility] , [place] 02-08-2020 09:28-0500 BP Diastolic 81 mm[Hg] [facility] , [place] 02-08-2020 09:28-0500 BP Systolic 98 mm[Hg] [facility] , [place] 02-08-2020 09:28-0500 Height 162.6 cm Ziyad Alicia [facility] , [place] 02-08-2020 09:28-0500 Pulse (Heart Rate) 104 /min Ziyad Alicia [facility], [place] 02-08-2020 09:28-0500 Pulse Oximetry 91 % [facility] , [place] 02-08-2020 09:28-0500 Respiratory Rate 16 /min [facility], [place] 02-01-2020 09:08-0500 BMI (Body Mass Index) 23.49 kg/m2 Ziyad Alicia [facility], [place] 02-01-2020 09:08-0500 Body weight 62.41 kg [facility] , [place] 02-01-2020 09:08-0500 Height 163 cm Ziyad [facility]endez [facility] , [place] 01-31-2020 14:04-0500 Body Temperature 97.9 [degF] Ziyad Alicia [facility] [place] 01-31-2020 14:04-0500 BP Diastolic 82 mm[Hg] Ziyad Alicia [facility] , [place] 01-31-2020 14:04-0500 BP Systolic 117 mm[Hg] Ziyad Alicia [facility] , [place] 01-31-2020 14:04-0500 Pulse (Heart Rate) 109 /min Ziyad Alicia [facility], [place] 01-31-2020 14:04-0500 Respiratory Rate 20 /min Ziyad Alicia [facility], [place] 01-25-2020 09:25-0500 Body Temperature 99.19 [degF] Ziyad Alicia [facility], [place] 01-25-2020 09:25-0500 BP Diastolic 80 mm[Hg] [facility] , [place] 01-25-2020 09:25-0500 BP Systolic 113 mm[Hg] [facility] , [place] 01-25-2020 09:25-0500 Pulse (Heart Rate) 104 /min [facility], [place] 01-25-2020 09:25-0500 Pulse Oximetry 93 % Ziyad Alicia [facility] , [place] 01-25-2020 09:25-0500 Respiratory Rate 16 /min Ziyad Alicia [facility], [place] 01-25-2020 09:21-0500 BMI (Body Mass Index) 23.22 kg/m2 [facility], [place] 01-25-2020 09:21-0500 Body weight 61.69 kg [facility] , [place] 01-25-2020 09:21-0500 Height 163 cm Ziyad Alicia [facility] , [place] 01-24-2020 09:25-0500 BMI (Body Mass Index) 23.22 kg/m2 Ziyad Alicia [facility], [place] 01-24-2020 09:25-0500 Body weight 61.69 kg [facility] , [place] 12-19-2019 15:00-0400 BP Diastolic 77 mm[Hg] Ziyad Menendez [facility] , [place] 12-19-2019 15:00-0400 BP Systolic 144 mm[Hg] Ziyad Menendez [facility] , [place] 12-19-2019 15:00-0400 Pulse (Heart Rate) 92 /min [facility] [place] 12-19-2019 15:00-0400 Pulse Oximetry 99 % Ziyad Menendez [facility] , [place] 12-19-2019 15:00-0400 Respiratory Rate 18 /min Ziyad Menendez [facility], [place] 12-19-2019 11:25-0400 BMI (Body Mass Index) 23.46 kg/m2 Ziyad Menendez [facility], [place] 12-19-2019 11:25-0400 Body Temperature 99.5 [degF] Ziyad Menendez [facility], [place] 12-19-2019 11:25-0400 Body weight 63.96 kg Ziyadrefugio Menendez [facility] , [place] 12-19-2019 11:25-0400 Height 165.1 cm Ziyad Menendez [facility] , [place] 11-24-2019 11:45-0400 Body Temperature 98.2 [degF] [facility] [place] [place] 11-24-2019 11:45-0400 BP Diastolic 81 mm[Hg] [facility] [place] 11-24-2019 11:45-0400 BP Systolic 126 mm[Hg] [facility], [place] 11-24-2019 11:45-0400 Pulse (Heart Rate) 90 /min [facility] [place] [place] 11-24-2019 11:45-0400 Pulse Oximetry 97 % [facility] [place] 11-24-2019 11:45-0400 Respiratory Rate 18 /min [facility] [place] 11-22-2019 10:31-0400 Height 165.1 cm [facility], [place] 11-21-2019 21:35-0400 BMI (Body Mass Index) 25.96 kg/m2 [facility] [place], [place] 11-21-2019 21:35-0400 Body weight 70.76 kg [facility] [place] 11-09-2019 22:55-0400 BMI (Body Mass Index) 24.96 kg/m2 Tani Joseph [facility], [place] 11-09-2019 22:55-0400 Body Temperature 98.29 [degF] Tani [facility], [place] 11-09-2019 22:55-0400 Body weight 68.04 kg Tani [facility] , [place] Comment on above: from 10/21/19 11-09-2019 22:55-0400 BP Diastolic 72 mm[Hg] Tani [facility] , [place] 11-09-2019 22:55-0400 BP Systolic 120 mm[Hg] Tani [facility] , [place] 11-09-2019 22:55-0400 Pulse (Heart Rate) 107 /min [place] 11-09-2019 22:55-0400 Pulse Oximetry 95 % Tani [facility] , [place] 11-09-2019 22:55-0400 Respiratory Rate 18 /min Tani [facility], [place] 11-05-2019 13:04-0400 BMI (Body Mass Index) 24.96 kg/m2 [facility], [place] 11-05-2019 13:04-0400 Body Temperature 98.49 [degF] Ziyad Menendez [facility], [place] 11-05-2019 13:04-0400 Body weight 68.04 kg Ziyad Menendez [facility] , [place] 11-05-2019 13:04-0400 BP Diastolic 83 mm[Hg] Ziyad Menendez [facility] , [place] 11-05-2019 13:04-0400 BP Systolic 124 mm[Hg] Ziyad Menendez [facility] , [place] 11-05-2019 13:04-0400 Height 165.1 cm Ziyad Menendez [facility] , [place] 11-05-2019 13:04-0400 Pulse (Heart Rate) 92 /min Ziyad Menendez [facility], [place] 11-05-2019 13:04-0400 Pulse Oximetry 89 % Ziyad Menendez [facility] , [place] 11-05-2019 13:04-0400 Respiratory Rate 16 /min [facility], [place] 10-27-2019 17:39-0400 BP Diastolic 82 mm[Hg] [facility] [place] 10-27-2019 17:39-0400 BP Systolic 129 mm[Hg] Ankit [facility] , [place] 10-27-2019 17:39-0400 Pulse (Heart Rate) 87 /min [facility] [place] 10-27-2019 17:39-0400 Pulse Oximetry 95 % Ankit [facility] , [place] 10-27-2019 17:39-0400 Respiratory Rate 18 /min [facility] [place] 10-27-2019 15:07-0400 Body Temperature 98.2 [degF] Ankit [facility], [place] 10-27-2019 15:04-0400 BMI (Body Mass Index) 24.96 kg/m2 Ankit [facility], [place] 10-27-2019 15:04-0400 Body weight 68.04 kg Ankit [facility] , [place] 10-27-2019 15:04-0400 Height 165.1 cm Ankit [facility] , [place] 10-21-2019 23:01-0400 BP Diastolic 99 mm[Hg] [facility] , [place] 10-21-2019 23:01-0400 BP Systolic 152 mm[Hg] [facility] , [place] 10-21-2019 23:01-0400 Pulse (Heart Rate) 86 /min Jaspreet [facility], [place] 10-21-2019 23:01-0400 Pulse Oximetry 95 % Jaspreet [facility] , [place] 10-21-2019 23:01-0400 Respiratory Rate 18 /min Jaspreet [facility], [place] 10-21-2019 19:59-0400 BMI (Body Mass Index) 24.96 kg/m2 [facility], [place] 10-21-2019 19:59-0400 Body Temperature 98.29 [degF] Jaspreet [facility], [place] 10-21-2019 19:59-0400 Body weight 68.04 kg Jaspreet [facility] , [place] 08-04-2019 09:35-0400 Pulse Oximetry 95 % Joanie [place], [place] 08-04-2019 09:35-0400 Respiratory Rate 18 /min Joanie [place] 08-04-2019 09:08-0400 Body Temperature 98.1 [degF] Joanie [place] 08-04-2019 09:08-0400 BP Diastolic 74 mm[Hg] [place] 08-04-2019 09:08-0400 BP Systolic 120 mm[Hg] [place] 08-04-2019 09:08-0400 Pulse (Heart Rate) 66 /min [place] 08-02-2019 20:51-0400 BMI (Body Mass Index) 23.3 kg/m2 [place] 08-02-2019 20:51-0400 Body weight 63.5 kg [place] 08-02-2019 20:51-0400 Height 165.1 cm [place] Encounters Encounter Date Encounter Type Care Provider Facility Start: 09-17-2024 ambulatory Jameson STALLINGS Faci lity:[facility] Start: 09-14-2024 ambulatory Jameson STALLINGS Faci lity:[facility] Start: 09-07-2024 End: 09-11-2024 Refill Herminia Case MD Work Phone: [facility] Comment on above: Refill Request Start: 09-07-2024 End: 09-07-2024 Telephone encounter Ziyad Menendez MD Work Phone: [facility] Gynecologic Oncology - [place] Start: 09-06-2024 End: 09-06-2024 ambulatory Ziyad Menendez MD Work Phone: [facility] Comment on above: Other specified comp lication of vascular prosthetic devices, implants and grafts, initial encounter (HCC) (Primary Dx); Poor venous access Start: 08-22-2024 End: 09-03-2024 Refill Herminia Case MD Work Phone: [facility] Comment on above: Refill Request Start: 08-20-2024 End: 08-20-2024 Office outpatient visit 25 minutes Elyssa Tesfaye NP Work Phone: [facility] Pulmonary and Sleep Medicine [place] Comment on above: Hospital discharge f ollow-up (Primary Dx); Acute on chronic respiratory failure with hypoxia (HCC); Centrilobular emphysema (HCC); Aspiration pneumonia of left lower lobe, unspecified aspiration pneumonia type (HCC); Chronic obstructive pulmonary disease with acute lower respiratory infection (HCC); History of tobacco abuse; Severe malnutrition (CMS/HCC) (HCC) Start: 08-20-2024 End: 08-20-2024 [facility] Start: 08-18-2024 End: 08-24-2024 Refill Herminia Case MD Work Phone: [facility] Comment on above: Refill Request Start: 08-15-2024 ambulatory Jameson Ledbetter lity:[facility] Start: 08-13-2024 End: 08-14-2024 Refill Melva Juárez PA-C Work Phone: [facility] Comment on above: Refill Request Start: 08-08-2024 End: 08-08-2024 Orders Only Melva Garcia RN [facility] Palliative Care - [place] Comment on above: Chronic obstructive pulmonary disease, unspecified COPD type (HCC) (Primary Dx); Severe malnutrition (CMS/HCC) (HCC) Start: 07-30-2024 End: 08-08-2024 Evaluation and management of inpatient Luis E Keating DO Work Phone: [facility] Cardiac Progressive Care Unit PCU 2E Comment on above: Adult failure to thr k[place] (Primary Dx); Severe protein-calorie malnutrition (HCC); Closed supracondylar fracture of left humerus, initial encounter; Severe malnutrition (CMS/HCC) (HCC); Pulmonary emphysema, unspecified emphysema type (HCC); Chronic obstructive pulmonary disease, unspecified COPD type (HCC) Start: 07-30-2024 End: 07-30-2024 Office outpatient visit 25 minutes Herminia Case MD Work Phone: [facility] Comment on above: Chronic respiratory failure with hypoxia (HCC) (Primary Dx); Centrilobular emphysema (HCC); Adult failure to thrive; Severe protein-calorie malnutrition (HCC) Start: 07-30-2024 End: 07-30-2024 [facility] [facility] Start: 07-22-2024 End: 07-23-2024 Refill Herminia Case MD Work Phone: [facility] Comment on above: Refill Request Start: 06-30-2024 End: 07-02-2024 Telephone encounter Herminia Case MD Work Phone: [facility] Comment on above: Orders Start: 06-26-2024 End: 06-26-2024 Refill Melva Juárez PA-C Work Phone: [facility] Comment on above: Refill Request Start: 06-07-2024 End: 06-07-2024 Telephone encounter Maddi Valero LPN Work Phone: [facility] Comment on above: Home Care (SOC appro martín.) Home Care (Confirmat ion call.) Start: 06-06-2024 End: 06-06-2024 ambulatory HERMINIA CASE Facility:[facility] Start: 06-06-2024 End: 06-06-2024 Telemedicine consultation with patient Herminia Case MD Work Phone: [facility] Start: 06-06-2024 End: 06-06-2024 Telephone encounter Herminia Case MD Work Phone: [facility] Comment on above: Home Care Panlobular emphysema (HCC) (Primary Dx); Moderate episode of recurrent major depressive disorder (HCC); Chronic respiratory failure with hypoxia (HCC) Start: 05-26-2024 End: 05-28-2024 Refill Herminia Case MD Work Phone: [facility] Comment on above: Refill Request Start: 05-22-2024 End: 06-22-2024 ambulatory Herminia Case MD Work Phone: [facility] Start: 05-08-2024 End: 05-10-2024 Refill Melva Juárez PA-C Work Phone: [facility] Comment on above: Refill Request Start: 05-02-2024 End: 05-02-2024 [facility] Herminia Case MD Work Phone: [facility] Comment on above: Compression fracture of body of thoracic vertebra (HCC) (Primary Dx); Panlobular emphysema (HCC); Moderate episode of recurrent major depressive disorder (HCC); PAUL (generalized anxiety disorder); Chronic respiratory failure with hypoxia (HCC); Hyperlipidemia, mixed; Hyperglycemia; Other closed nondisplaced fracture of proximal end of right humerus with routine healing, subsequent encounter Start: 04-30-2024 End: 05-01-2024 Refill Herminia Case MD Work Phone: [facility] Comment on above: Refill Request Start: 04-27-2024 End: 04-28-2024 Emergency department patient visit Flako Altamirano MD Work Phone: [facility] Comment on above: Contusion of face, i nitial encounter (Primary Dx) Start: 04-23-2024 End: 04-24-2024 ambulatory Melva Juárez PA-C Work Phone: [facility] Comment on above: Copd meds Start: 04-06-2024 End: 04-06-2024 Refill Herminia Case MD Work Phone: [facility] Comment on above: Refill Request Start: 03-31-2024 End: 04-03-2024 Refill Herminia Case MD Work Phone: [facility] Comment on above: Refill Request Start: 03-18-2024 End: 03-20-2024 Refill Melva FELIX-C Work Phone: [facility] Comment on above: Refill Request Start: 03-10-2024 End: 03-12-2024 Refill Melva FELIX-C Work Phone: [facility] Comment on above: Refill Request Start: 03-09-2024 End: 03-09-2024 Refill Herminia Case MD Work Phone: [facility] Comment on above: Refill Request Start: 03-04-2024 End: 03-06-2024 Refill Herminia Case MD Work Phone: [facility] Comment on above: Refill Request Start: 03-01-2024 End: 03-05-2024 Telephone encounter Herminia Case MD Work Phone: [facility] Comment on above: Medication Problem Start: 02-06-2024 End: 02-07-2024 ambulatory Melva PARRYC Work Phone: [facility] Comment on above: Buspar Refill Request Start: 01-11-2024 End: 01-11-2024 Refill Brando Simon MD Work Phone: [facility] Comment on above: Refill Request Start: 01-10-2024 End: 01-11-2024 Refill Melva PARRYC Work Phone: [facility] Comment on above: Refill Request Start: 01-09-2024 End: 01-11-2024 Refill Herminia Case MD Work Phone: [facility] Comment on above: Refill Request Copd med Start: 01-08-2024 End: 01-09-2024 Refill Herminia Case MD Work Phone: [facility] Comment on above: Refill Request Start: 12-30-2023 End: 12-30-2023 ambulatory Joaquina Rao APRN.CNP Work Phone: [facility] Comment on above: Panlobular emphysema (HCC) Start: 12-30-2023 End: 12-30-2023 Telemedicine consultation with patient Joaquina Rao 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.TONG SETTER Work Phone: [facility] Start: 12-27-2023 End: 12-27-2023 Refill Jessica Kong 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.TONG SETTER Work Phone: [facility] Comment on above: Refill Request Start: 12-27-2023 End: 12-27-2023 Telephone encounter Herminia Case MD Work Phone: [facility] Comment on above: Orders Start: 12-13-2023 End: 12-14-2023 Telephone encounter Herminia Case MD Work Phone: [facility] Comment on above: Results Refill Request Start: 12-06-2023 End: 12-08-2023 Home visit Herminia Case MD Work Phone: [facility] Comment on above: Osteoporotic vertebr al collapse, with routine healing, subsequent encounter (Primary Dx) Start: 12-06-2023 End: 12-06-2023 Telephone encounter Herminia Case MD Work Phone: [facility] Comment on above: Orders Start: 11-28-2023 End: 11-28-2023 Refill Melva Juárez PA-C Work Phone: [facility] Comment on above: Refill Request Start: 11-14-2023 End: 11-15-2023 Telephone encounter Herminia Case MD Work Phone: [facility] Comment on above: Orders Refill Request Start: 11-12-2023 End: 11-12-2023 Refill Melva Juárez PA-C Work Phone: [facility] Comment on above: Refill Request Start: 11-02-2023 Refill Brando leblanc MD Work Phone: [facility] Comment on above: Refill Request Start: 10-28-2023 Telephone encounter Herminia warner MD Work Phone: [facility] Comment on above: Orders Start: 10-22-2023 Telephone encounter Herminia warner MD Work Phone: [address] [place] [address] Comment on above: Patient Update Start: 10-18-2023 Telephone encounter Herminia warner MD Work Phone: [facility] Comment on above: Orders Start: 10-16-2023 End: 10-16-2023 Emergency department patient visit HERMINIA CASE [facility] Comment on above: Fall, initial encoun ter (Primary Dx); Compression fracture of body of thoracic vertebra (HCC) Start: 10-11-2023 Home visit Herminia Mccurdy Work Phone: [facility] Comment on above: Osteoporotic vertebr al collapse, with routine healing, subsequent encounter (Primary Dx) Start: 10-10-2023 Telephone encounter Herminia warner MD Work Phone: [facility] Comment on above: Orders Start: 10-06-2023 Home visit Herminia Mccurdy Work Phone: [facility] Comment on above: Pathological fractur e of vertebra due to other osteoporosis with routine healing, subsequent encounter (Primary Dx) Start: 10-06-2023 Telephone encounter Herminia warner MD Work Phone: [facility] Comment on above: Home Care (Physical therapy delayed 1 week) Start: 10-06-2023 Unlisted evaluation and management service Herminia Case MD Work Phone: [facility] Comment on above: OPENED IN ERROR (Mariam phillip Dx) Start: 09-21-2023 Telephone encounter Herminia warner MD Work Phone: [facility] Comment on above: Patient Update Start: 09-19-2023 End: 09-22-2023 Evaluation and management of inpatient Jono Weathers MD Work Phone: [facility] Card[facility] Progressive [facility] Unit PCU 2E Comment on above: Near syncope (Primar y Dx); Closed head injury, initial encounter; Fall, initial encounter; Compression fracture of T5 vertebra, initial encounter (HCC); Compression fracture of T7 vertebra, initial encounter (HCC); Compression fracture of T8 vertebra, initial encounter (HCC); Compression fracture of L1 vertebra, initial encounter (HCC) Start: 09-16-2023 Refill Herminia Mccurdy Work Phone: [facility] Comment on above: Refill Request Start: 09-15-2023 Refill Herminia Mccurdy Work Phone: [facility] Comment on above: Refill Request Start: 09-14-2023 Refill Melva balderas PA-C Work Phone: [facility] Comment on above: Refill Request Start: 09-08-2023 End: 09-08-2023 ambulatory HERMINIA CASE Facility:[facility] Start: 09-08-2023 End: 09-08-2023 Patient encounter procedure Barbi Goldberg MD Work Phone: [facility] Comment on above: Herpes zoster withou t complication (Primary Dx) Start: 09-06-2023 Telephone encounter Herminia warner MD Work Phone: [facility] Comment on above: Electronic Communica [facility]ion [facility] be fax[facility] back to them ) Start: 08-20-2023 Refill Herminia Mccurdy Work Phone: [facility] Comment on above: Refill Request Start: 08-07-2023 End: 08-07-2023 Emergency department patient visit Herminia Case MD Work Phone: [facility] Comment on above: Bronchitis (Primary Dx); COPD exacerbation (HCC) Start: 08-05-2023 Refill Herminia Mccurdy Work Phone: [facility] Comment on above: Refill Request Start: 07-22-2023 Refill Herminia Mccurdy Work Phone: [facility] Comment on above: Refill Request Start: 07-20-2023 Refill Melva balderas PA-C Work Phone: [facility] Comment on above: Refill Request Start: 07-05-2023 ambulatory Herminia Mccurdy Work Phone: [facility] Start: 07-04-2023 Refill Gena Michaels 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.TONG SETTER Work Phone: [facility] Comment on above: Refill Request Start: 07-03-2023 Refill Gena Michaels 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.TONG SETTER Work Phone: [facility] Comment on above: Refill Request Start: 06-30-2023 Telephone encounter Herminia warner MD Work Phone: [facility] Comment on above: Medication Problem Start: 06-28-2023 ambulatory Herminia Mccurdy Work Phone: [facility] Comment on above: Breo Start: 06-25-2023 Refill Herminia Mccurdy Work Phone: [facility] Comment on above: Refill Request Start: 06-24-2023 Refill Herminia Mccurdy Work Phone: [facility] Comment on above: Refill Request Start: 06-22-2023 ambulatory Herminia Mccurdy Work Phone: [facility] Start: 06-10-2023 Refill Herminia Mccurdy Work Phone: [facility] Comment on above: Refill Request Start: 06-10-2023 End: 06-10-2023 [facility] Herminia Case MD Work Phone: [facility] Comment on above: Moderate episode of recurrent major depressive disorder (HCC) (Primary Dx); Panlobular emphysema (HCC); Chronic respiratory failure with hypoxia (HCC) Start: 05-26-2023 Refill Herminia Mccurdy Work Phone: [facility] Comment on above: Refill Request Start: 05-25-2023 Telephone encounter Herminia warner MD Work Phone: [facility] Comment on above: Orders Start: 05-20-2023 End: 05-20-2023 [facility] Herminia Case MD Work Phone: [facility] Comment on above: Moderate episode of recurrent major depressive disorder (HCC) (Primary Dx); Panlobular emphysema (HCC) Start: 05-19-2023 Telephone encounter Herminia warner MD Work Phone: [facility] Comment on above: Orders Start: 05-18-2023 Home visit Herminia Mccurdy Work Phone: [facility] Comment on above: Age-related osteopor osis with current pathological fracture of left femur, initial encounter (HCC) (Primary Dx) Start: 05-18-2023 Telephone encounter Herminia warner MD Work Phone: [facility] Comment on above: Orders Start: 05-09-2023 Telephone encounter Herminia warner MD Work Phone: [facility] Comment on above: Orders Start: 05-02-2023 End: 05-02-2023 Patient encounter procedure Herminia Case MD Work Phone: [facility] Comment on above: PAUL (generalized anx iety disorder) (Primary Dx); Medication monitoring encounter; Compression fracture of body of thoracic vertebra (HCC); Other closed nondisplaced fracture of proximal end of right humerus with routine healing, subsequent encounter; Chronic respiratory failure with hypoxia (HCC); Panlobular emphysema (HCC); Moderate episode of recurrent major depressive disorder (HCC) Start: 04-29-2023 Telephone encounter Herminia warner MD Work Phone: [facility] Comment on above: Medication Problem Start: 04-27-2023 ambulatory Herminia Mccurdy Work Phone: [facility] Comment on above: Panic attacks Start: 04-21-2023 Telephone encounter Kisha mccurdy 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 - TONG SETTER Work Phone: [facility] Gynecologic Oncology Start: 04-19-2023 Telephone encounter Herminia warner MD Work Phone: [facility] Comment on above: Orders Start: 03-07-2023 Refill Herminia Mccurdy Work Phone: [facility] Comment on above: Refill Request Start: 02-13-2023 End: 02-18-2023 Evaluation and management of inpatient Lorenzo Orozco MD Work Phone: [facility] AAU 2 Comment on above: Lumbar compression f racture, closed, initial encounter (HCC) (Primary Dx); Fall, initial encounter; Multiple falls; Nondisplaced fracture of neck of left femur (HCC) Start: 02-07-2023 Refill Melva balderas PA-C Work Phone: [facility] Comment on above: Refill Request Start: 02-07-2023 Telephone encounter Herminia warner MD Work Phone: [facility] Comment on above: Orders Start: 02-01-2023 ambulatory [facility] Rom[facility] Comment on above: Population Health Na vigation Outreach (/Cologuard reminder ) Start: 01-31-2023 Telephone encounter Herminia warner MD Work Phone: [facility] Comment on above: Orders Start: 01-27-2023 ambulatory Jo mariscal [facility] Comment on above: Population Health Na vigation Outreach ([facility]) Start: 01-24-2023 Telephone encounter Herminia warner MD Work Phone: [facility] Comment on above: Orders Start: 01-21-2023 Telephone encounter Herminia warner MD Work Phone: [facility] Comment on above: Orders Start: 01-17-2023 Telephone encounter Herminia warner MD Work Phone: [facility] Comment on above: Orders Start: 01-14-2023 End: 01-14-2023 Patient encounter procedure Herminia Case MD Work Phone: [facility] Comment on above: Compression fracture of [...] Telephone encounter Herminia warner MD Work Phone: [facility] Comment on above: appointment cancella tion Start: 01-05-2023 Telephone encounter Herminia warner MD Work Phone: [facility] Comment on above: Missed Appointment Start: 12-30-2022 Telephone encounter Herminia warner MD Work Phone: [facility] Comment on above: Orders Start: 12-28-2022 Telephone encounter Herminia warner MD Work Phone: [facility] Comment on above: Orders Start: 12-22-2022 Telephone encounter Herminia warner MD Work Phone: [facility] Comment on above: Orders Start: 12-16-2022 Refill Herminia Mccurdy Work Phone: [facility] Comment on above: Refill Request Start: 12-10-2022 Refill Melva lovell PA-C Work Phone: [facility] Comment on above: Refill Request Start: 12-09-2022 ambulatory Melva lovell PA-C Work Phone: [facility] Comment on above: cologuard (cologuard ) Start: 12-09-2022 Telephone encounter Herminia warner MD Work Phone: [facility] Comment on above: Orders Start: 12-07-2022 Home visit Herminia Mccurdy Work Phone: [facility] Comment on above: Age-related osteopor osis with current pathological fracture of left femur with routine healing (Primary Dx) Start: 12-07-2022 Telephone encounter Herminia warner MD Work Phone: [facility] Comment on above: Orders Start: 11-29-2022 Telephone encounter Herminia warner MD Work Phone: [facility] Comment on above: Home Care Start: 11-22-2022 Refill Melva lovell PA-C Work Phone: [facility] Comment on above: Refill Request Start: 2022 Refill Herminia Mccurdy Work Phone: [facility] Comment on above: Refill Request Start: 11-17-2022 Refill Brando leblanc MD Work Phone: [facility] Comment on above: Refill Request Start: 11-15-2022 Refill Herminia Mccurdy Work Phone: [facility] Comment on above: Refill Request Start: 11-07-2022 ambulatory Herminia Mccurdy Work Phone: [facility] Comment on above: Renewals for my Breo and Flonase Start: 11-06-2022 End: 11-08-2022 Evaluation and management of inpatient Austyn Mccann DO Work Phone: [facility] Comment on above: Closed displaced int ertrochanteric fracture of left femur, initial encounter (HCC) (Primary Dx) Start: 10-27-2022 Telephone encounter Kisha mccurdy 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 - TONG SETTER Work Phone: [facility] Gynecologic Oncology Start: 10-22-2022 Refill Herminia Mccurdy Work Phone: [facility] Comment on above: Refill Request Start: 10-21-2022 Refill Herminia Mccurdy Work Phone: [facility] Comment on above: Refill Request Start: 10-20-2022 End: 10-20-2022 Office outpatient visit 25 minutes Kisha Pepe 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 - TONG SETTER Work Phone: [facility] Gynecologic Oncology Comment on above: 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); Encounter for screening mammogram for malignant neoplasm of breast Start: 10-15-2022 Refill Jessica warner APRN.CNP Work Phone: [facility] Comment on above: Refill Request Start: 09-15-2022 End: 09-15-2022 Patient encounter procedure Melva Sandoval PA-C Work Phone: [facility] Comment on above: Panlobular emphysema (HCC) (Primary Dx); COPD (chronic obstructive pulmonary disease) with acute bronchitis (HCC); Hyperlipidemia, mixed; Medication monitoring encounter; Screening for colon cancer; Medication management; Chronic midline low back pain without sciatica; DDD (degenerative disc disease), lumbar; Major depression, recurrent, chronic (HCC) Start: 08-17-2022 ambulatory Herminia Mccurdy Work Phone: [facility] Start: 07-29-2022 Refill Herminia Mccurdy Work Phone: [facility] Comment on above: Refill Request Start: 07-27-2022 Refill Herminia Mccurdy Work Phone: [facility] Comment on above: Refill Request Start: 07-14-2022 ambulatory Herminia Mccurdy Work Phone: [facility] Start: 07-02-2022 Telephone encounter Herminia warner MD Work Phone: [facility] Comment on above: Patient Update (Rupinder elled her home OT visit today due to illness ) Start: 07-01-2022 Telephone encounter Herminia warner MD Work Phone: [facility] Comment on above: Orders Start: 06-30-2022 Telephone encounter Herminia warner MD Work Phone: [facility] Comment on above: Medication Problem; Patient Update Start: 06-22-2022 ambulatory Herminia Mccurdy Work Phone: [facility] Comment on above: Sinus Problem Start: 06-22-2022 Refill Melva lovell PA-C Work Phone: [facility] Comment on above: Med Change Request Start: 06-22-2022 Telephone encounter Herminia warner MD Work Phone: [facility] Comment on above: Orders Start: 06-14-2022 Telephone encounter Herminia warner MD Work Phone: [facility] Comment on above: Orders Start: 06-03-2022 End: 06-03-2022 ambulatory Herminia Case MD Work Phone: [facility] Comment on above: Other closed nondisp [...] with patient Herminia Case MD Work Phone: [facility] Start: 06-01-2022 Telephone encounter Herminia warner MD Work Phone: [facility] Comment on above: Orders Start: 05-31-2022 Telephone encounter Herminia warner MD Work Phone: [facility] Comment on above: Home Care Management Start: 05-21-2022 End: 05-24-2022 Emergency department patient visit Martha Flores MD Work Phone: [facility] Comment on above: Fall, initial encoun ter (Primary Dx); Facial laceration, initial encounter; Closed fracture of neck of right humerus, initial encounter; Humeral head fracture, right, closed, initial encounter Start: 05-06-2022 Refill Donovan montes MD Work Phone: [facility] Comment on above: Refill Request Start: 04-21-2022 End: 04-21-2022 Office outpatient visit 15 minutes Sally Alvarez CNP Work Phone: [facility] [place] GEOTHERMAL TECHNICIAN Oncology Comment on above: 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) Start: 04-19-2022 Refill Herminia Mccurdy Work Phone: [facility] Comment on above: Refill Request Start: 04-07-2022 Refill Herminia Mccurdy Work Phone: [facility] Comment on above: Refill Request Start: 04-06-2022 ambulatory Jo Phillips [facility] Comment on above: Population Health Na vigation Outreach (ANDREWO TOMA [facility]SA) Start: 03-08-2022 Refill Melva lovell PA-C Work Phone: [facility] Comment on above: Refill Request Start: 03-05-2022 End: 03-05-2022 ambulatory Melva Sandoval PA-C Work Phone: [facility] Comment on above: COPD (chronic obstru ctive pulmonary disease) with acute bronchitis (HCC) (Primary Dx); DDD (degenerative disc disease), lumbar; Major depression, recurrent, chronic (HCC) Start: 03-05-2022 End: 03-05-2022 Telemedicine consultation with patient Melva Sandoval PA-C Work Phone: [facility] Start: 03-05-2022 Telephone encounter Melva Sandoval PA-C Work Phone: [facility] Comment on above: Appointment Start: 03-03-2022 Telephone encounter Herminia warner MD Work Phone: [facility] Comment on above: Orders Start: 02-16-2022 ambulatory Herminia Mccurdy Work Phone: [facility] Start: 02-08-2022 ambulatory Herminia Mccurdy Work Phone: [facility] Comment on above: Muscle relaxer Refill Request Start: 02-01-2022 ambulatory Herminia Mccurdy Work Phone: [facility] Comment on above: Nurse Triage Call Start: 01-29-2022 ambulatory Macarena leblanc 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.TONG SETTER Work Phone: Telemedicine Comment on above: Other acute sinusiti s, recurrence not specified (Primary Dx) Start: 01-13-2022 Refill Herminia Mccurdy Work Phone: [facility] Comment on above: Refill Request Start: 12-09-2021 ambulatory [facility] Start: 12-08-2021 ambulatory Herminia Mccurdy Work Phone: [facility] Comment on above: Breo Start: 11-26-2021 Refill Herminia Mccurdy Work Phone: [facility] Comment on above: Refill Request Start: 10-27-2021 Refill Melva lovell PA-C Work Phone: [facility] Comment on above: Refill Request Start: 10-18-2021 Refill Herminia Mccurdy Work Phone: [facility] Comment on above: Refill Request Start: 10-14-2021 ambulatory Herminia [facility] Start: 10-14-2021 End: 10-14-2021 Subsequent hospital visit by physician Ziyad Menendez MD Work Phone: [facility] Med Onc Comment on above: 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); Abnormal chest CT; Other specified complication of vascular prosthetic devices, implants and grafts, initial encounter (HCC); Poor venous access Malignant neoplasm o f exocervix (HCC); Abnormal findings on diagnostic imaging of other specified body structures; Abnormal chest CT Start: 10-13-2021 Telephone encounter Herminia warner MD Work Phone: [facility] Comment on above: Orders ([facility]-Oxy gen order.) Start: 08-26-2021 Refill Jessica warner 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.TONG SETTER Work Phone: [facility] Comment on above: Refill Request Start: 08-07-2021 Telephone encounter Herminia warner MD Work Phone: [facility] Comment on above: Patient Question Start: 08-06-2021 End: 08-06-2021 Patient encounter procedure Herminia Case MD Work Phone: [facility] Comment on above: Panlobular emphysema (HCC) [...] Telephone encounter Herminia warner MD Work Phone: [facility] Comment on above: Orders ([facility] [facility] Start: 08-04-2021 ambulatory Herminia Distel [facility] Start: 07-28-2021 Refill Jessica warner APRN.CNP Work Phone: Internal [facility] Comment on above: Refill Request Start: 07-01-2021 Refill Melva lovell PA-C Work Phone: [facility] Comment on above: Refill Request Start: 02-18-2021 ambulatory Herminia Distel [facility] Start: 12-26-2020 ambulatory Herminia Distel [facility] Start: 12-26-2020 End: 12-26-2020 Subsequent hospital visit by physician Ziyad Menendez MD Work Phone: [facility] Med Onc Comment on above: 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); Poor venous access Malignant neoplasm o f exocervix (HCC); Lung nodule seen on imaging study Start: 10-16-2020 End: 10-16-2020 Emergency department patient visit Herminia Case MD Work Phone: [facility] Comment on above: Closed fracture of c occyx, initial encounter (HCC) (Primary Dx); Contusion of right elbow, initial encounter Start: 09-24-2020 End: 09-24-2020 Subsequent hospital visit by physician Ziyad Menendez MD Work Phone: [facility] CT Scan Comment on above: Arrived Poor venous access ( Primary Dx); Malignant neoplasm of exocervix (HCC) Start: 06-09-2020 End: 06-09-2020 Subsequent hospital visit by physician Ziyad Menendez Work Phone: [facility] Comment on above: 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); Poor venous access Start: 06-06-2020 End: 06-06-2020 Subsequent hospital visit by physician Ziyad Menendez Work Phone: [facility] CT Scan Comment on above: Abnormal findings on diagnostic imaging of other specified body structures; Abnormal CT of the chest Start: 03-16-2020 End: 03-16-2020 Emergency department patient visit Tani Joseph Work Phone: [facility] ED Comment on above: COPD exacerbation (H CC) (Primary Dx); Bronchitis Start: 03-10-2020 End: 03-10-2020 Subsequent hospital visit by physician Ziyad Menendez Work Phone: [facility] CT Scan Comment on above: Malignant neoplasm o f exocervix (HCC); Lung nodule seen on imaging study Start: 03-03-2020 End: 03-03-2020 Subsequent hospital visit by physician Burke Washburn Work Phone: [facility] Start: 02-29-2020 End: 02-29-2020 Subsequent hospital visit by physician Burke Washburn Work Phone: [facility] Start: 02-28-2020 End: 02-28-2020 Subsequent hospital visit by physician Burke Washburn Work Phone: [facility] Start: 02-26-2020 End: 02-26-2020 Subsequent hospital visit by physician Burke Washburn Work Phone: [facility] Start: 02-25-2020 End: 02-25-2020 Subsequent hospital visit by physician Burke Washburn Work Phone: [facility] Start: 02-22-2020 End: 02-22-2020 Subsequent hospital visit by physician Burke Washburn Work Phone: [facility] Comment on above: 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) Start: 02-21-2020 End: 02-21-2020 Subsequent hospital visit by physician Ziyad Menendez Work Phone: [facility] Comment on above: Poor venous access ( Primary Dx); Malignant neoplasm of exocervix (HCC) Start: 02-19-2020 End: 02-19-2020 Subsequent hospital visit by physician Burke Washburn Work Phone: [facility] Start: 02-13-2020 End: 02-13-2020 Subsequent hospital visit by physician Burke Washburn Work Phone: [facility] Start: 02-10-2020 End: 02-11-2020 Subsequent hospital visit by physician Burke Washburn Work Phone: [facility] Start: 02-08-2020 [...] 02-07-2020 Subsequent hospital visit by physician Burke Washburn Work Phone: [facility] Start: 02-05-2020 [...] visit by physician Ziyad Menendez Work Phone: [facility] Comment on above: Poor venous access [...] 01-15-2020 Subsequent hospital visit by physician Burke Washburn Work Phone: [facility] Start: 01-14-2020 End: 01-14-2020 Subsequent hospital visit by physician Burke Washburn Work Phone: [facility] Start: 01-11-2020 End: 01-11-2020 Subsequent hospital visit by physician Burke Washburn Work Phone: [facility] Start: 01-09-2020 End: 01-09-2020 Subsequent hospital visit by physician Burke Washburn Work Phone: [facility] Start: 12-26-2019 End: 12-26-2019 Subsequent hospital visit by physician Burke Washburn Work Phone: [facility] Start: 12-26-2019 End: 12-26-2019 Subsequent hospital visit by physician Burke Washburn Work Phone: [facility] Start: 12-19-2019 End: 12-20-2019 Subsequent hospital visit by physician Ziyad Menendez Work Phone: [facility] Cath & IR Lab Comment on above: Malignant neoplasm o f exocervix (HCC) Start: 12-11-2019 End: 12-11-2019 Subsequent hospital visit by physician Burke Washburn Work Phone: [facility] Start: 11-21-2019 End: 11-24-2019 Evaluation and management of inpatient Ray Barroso Work Phone: [facility] 4S TELEMETRY Comment on above: Right arm weakness ( Primary Dx); Pulmonary emphysema, unspecified emphysema type (HCC) Start: 11-10-2019 End: 11-10-2019 Subsequent hospital visit by physician Herminia Case Work Phone: [facility] Comment on above: Leg swelling Start: 11-10-2019 End: 11-10-2019 Subsequent hospital visit by physician Tani Joseph Work Phone: [facility] Ultrasound Start: 11-09-2019 End: 11-09-2019 Emergency department patient visit [facility] Comment on above: Leg swelling (Primar y Dx) Start: 11-05-2019 End: 11-05-2019 Subsequent hospital visit by physician Ziyad Menendez Work Phone: [facility] Pre-Admit Testing Comment on above: Pre-op testing (Prim tom Dx) Start: 10-27-2019 End: 10-27-2019 Emergency department patient visit Ankit Zaragoza Work Phone: [facility] Comment on above: Compression fracture of L3 lumbar vertebra, sequela (Primary Dx); Acute exacerbation of chronic low back pain Start: 10-21-2019 End: 10-21-2019 Emergency department patient visit Jaspreet Otto Work Phone: [facility] Comment on above: Compression fracture of lumbar vertebra, initial encounter, unspecified lumbar vertebral level (HCC) (Primary Dx) Start: 08-02-2019 End: 08-04-2019 Evaluation and management of inpatient Joanie Johnson Work Phone: [facility] TELEMETRY Procedures Date Procedure Procedure Detail [...] by MILANA with non-probe detection Leann Cross 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 - [employer]ONG SETTER Work Phone: Start: 08-01-2024 Smr prim src gram/gi emsa stain bct fungi/cell Leann Cross 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 - TONG SETTER Work Phone: Start: 07-31-2024 Ct abdomen & pelvis w/contrast material Lauren Serna MD Work Phone: Start: 07-31-2024 Respiratory pathogen s DNA and RNA panel - Nasopharynx by MILANA with non-probe detection Lauren Serna MD Work Phone: Start: 07-30-2024 Urnls dip stick/tabl et reagent auto microscopy Luis E Gisellarakola DO Work Phone: Start: 07-30-2024 Radiologic exam ches t single view Luis E Mudrakola DO Work Phone: Start: 07-30-2024 Radex elbow 2 views Vis hnu Mudrakola DO Work Phone: Start: 07-30-2024 Basic metabolic pane l calcium total Luis E Gisellarakola DO Work Phone: Start: 07-30-2024 C-reactive protein Jacqueline Serna MD Work Phone: Start: 07-30-2024 Ecg routine ecg w/le ast 12 lds trcg only w/o i&r Luis E Gisellarakola DO Work Phone: Start: 07-30-2024 Application long arm splint shoulder hand Luis E Gisellarakola DO Work Phone: Start: 04-28-2024 Ct cervical [...] 12 lds trcg only w/o i&r Nickolas Rivera MD Work Phone: Start: 09-20-2023 Basic metabolic pane l calcium total Lauren Serna MD Work Phone: Start: 09-19-2023 Assay of magnesium Jacqueline Serna MD Work Phone: Start: 09-19-2023 Urinalysis complete panel - Urine Sorandell Ceballos MD Work Phone: Start: 09-19-2023 Urnls [...] 11-07-2022 OXYGEN THERAPY Ray Mendez APRN - [facility] Work Phone: Start: 11-07-2022 FL GUIDANCE OR USE O NLY - NON-RESULTABLE Andres Ventura MD Work Phone: Start: 11-07-2022 End: 11-07-2022 Prq skel fixj femoral fx prox end neck Andres Ventura MD Work Phone: Start: 11-07-2022 End: 11-07-2022 Basic metabolic panel calcium total Raul Vogt DO Work Phone: Start: 11-06-2022 Ecg routine ecg w/le ast 12 lds trcg only w/o i&r Raul Whipple DO Work Phone: Start: 11-06-2022 Basic metabolic pane l calcium total Austyn Mccann DO Work Phone: Start: 11-06-2022 End: 11-06-2022 Radex ribs unilateral 2 views Austyn Mccann DO Work Phone: Start: 10-20-2022 Microscopic observat ion [Identifier] in Cervix by Cyto stain Kisha Pepe 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 - TONG SETTER Work Phone: Start: 09-15-2022 Blood count complete auto&auto difrntl wbc Melva Sandoval PA-C Work Phone: Start: 09-15-2022 Lipid panel Bulk Order Provider Start: 09-15-2022 Lipid 1996 panel - S soniya or Plasma Herminia Case MD Work Phone: Start: 05-24-2022 Basic metabolic pane l calcium total Teresa Cedillo MD Work Phone: Start: 05-23-2022 Basic metabolic pane l calcium total Dianne Rekha Dale Work Phone: Start: 05-22-2022 Basic metabolic pane l calcium total Dianne Whartonbryanna Dale Work Phone: Start: 05-21-2022 Ecg routine [...] prsmv instr mnt chem analyzers pr date Herminai Case MD Work Phone: Start: 12-26-2020 Creatinine blood Janet Menendez MD Work Phone: Start: 10-16-2020 Radex spine lumbosac ral 2/3 views Lauren Lutz 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 - TONG SETTER Work Phone: Start: 09-24-2020 Ct thorax w/contrast material Ziyad Menendez MD Work Phone: Start: 06-06-2020 Creatinine other source Ziyad Menendez Work Phone: Start: 03-16-2020 Nebulizer therapy Amelie Cesar Martínez Work Phone: Start: 03-16-2020 Radiologic exam ches t single view Amelie Cesar Martínez Work Phone: Start: 03-16-2020 COVID-19, RAPID Amelie sarmiento Work Phone: Start: 03-16-2020 Assay of troponin quantitative Amelie Arsneio Soliz Work Phone: Start: 03-16-2020 Blood count complete auto&auto difrntl wbc Amelie Arsenio Soliz Work Phone: Start: 03-16-2020 Comprehensive metabolic panel Amelie Cesar Kurtmallory Work Phone: Start: 03-16-2020 Natriuretic peptide Amelie Arsenio Hicksmallory Work Phone: Start: 03-16-2020 RBC morphology findi ng Nom (Bld) Amelie Cesra Martínez Work Phone: Start: 03-16-2020 Ecg routine ecg w/le ast 12 lds w/i&r Amelie L Martínez Work Phone: Start: 02-21-2020 Assay of magnesium [...] 12-19-2019 Special treatments a nd procedures Ziyad J Shon Work Phone: Start: 11-24-2019 BASIC METABOLIC PANE L W/ REFLEX TO MG FOR LOW K Aparna Jose Angel Work Phone: Start: 11-24-2019 Blood count complete auto&auto difrntl wbc Aparna Walter Work Phone: Start: 11-23-2019 Duplex scan extracra nial art compl bi study Aparna Jose Angel Work Phone: Start: 11-23-2019 Echo tthrc r-t 2d w/ wom-mode compl spec&colr d Lauren Serna Work Phone: Start: 11-23-2019 BASIC METABOLIC PANE L W/ REFLEX TO MG FOR LOW K Aparna Jose Angel Work Phone: Start: 11-23-2019 Blood count complete auto&auto difrntl wbc Aparna Walter Work Phone: Start: 11-22-2019 Dup-scan xtr veins unilateral/limited study Lauren Serna Work Phone: Start: 11-22-2019 Electroencephalogram w/rec awake&asleep Chad Magallanes Work Phone: Start: 11-22-2019 Assay of magnesium Jacqueline Serna Work Phone: Start: 11-22-2019 Blood count complete auto&auto difrntl wbc Lauren Serna Work Phone: Start: 11-22-2019 Blood count complete automated Lauren Serna Work Phone: Start: 11-22-2019 Hemoglobin glycosylated a1c Lauren Serna Work Phone: Start: 11-22-2019 Lipid panel Lauren booth Work Phone: Start: 11-21-2019 Speech and language therapy regime Lauren Serna Work Phone: Start: 11-21-2019 Ct head/brain w/o co ntrast material Ray Vaz [employer] Work Phone: Start: 11-21-2019 Assay of magnesium Livan Vaz [employer] Work Phone: Start: 11-21-2019 Assay of troponin quantitative Ray Vaz [place] Work Phone: Start: 11-21-2019 Blood count complete auto&auto difrntl wbc Ray Vaz [employer] Work Phone: Start: 11-21-2019 Prothrombin time Lacey Vaz [employer] Work Phone: Start: 11-21-2019 Thromboplastin time partial plasma/whole blood Ray Vaz [place] Work Phone: Start: 11-21-2019 Oxygen therapy [Mini mum Data Set] Ray Vaz [employer] Work Phone: Start: 11-21-2019 Ecg routine ecg w/le ast 12 lds w/i&r Ray Vaz [employer] Work Phone: Start: 11-21-2019 Gluc bld gluc mntr d ev cleared fda spec home use Unknown Provider Result Start: 11-18-2019 Microscopic examinat ion of blood, culture Comment on above: Order Comment: Speci men Source Comment:Blood Performed By: #### C /BLT ####[address] [id number] Start: 11-07-2019 H/O: hysterectomy S/P hysterectomy C venkat Rocha 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 - TONG SETTER Work Phone: Start: 11-06-2019 H/O: hysterectomy S/P hysterectomy S spike Menendez MD Work Phone: Start: 11-05-2019 Blood typing serologic abo Macarean Chakraborty Work Phone: Start: 10-27-2019 Assay of lipase Ankit castellon Work Phone: Start: 10-27-2019 Basic metabolic pane l calcium total Ankit Zaragoza Work Phone: Start: 10-27-2019 Blood count complete auto&auto difrntl wbc Ankit Zaragoza Work Phone: Start: 10-27-2019 Hepatic function panel Ankit Zaragoza Work Phone: Start: 10-27-2019 Computed tomography of abdomen and pelvis with contrast Ankit Zaragoza Work Phone: Start: 10-21-2019 Ct lumbar spine w/o contrast material Jaspreet Otto Work Phone: Start: 10-21-2019 Ct thoracic spine w/ o contrast material Jaspreet Otto Work Phone: Start: 08-04-2019 Basic metabolic pane l calcium total Roland Ortiz Work Phone: Start: 08-04-2019 Blood count complete auto&auto difrntl wbc Roland Ortiz Work Phone: Start: 08-03-2019 Assay of magnesium Jacqueline Serna Work Phone: Start: 08-03-2019 Basic metabolic pane l calcium total Lauren Serna Work Phone: Start: 08-03-2019 Blood count complete auto&auto difrntl wbc Lauren Serna Work Phone: Start: 08-02-2019 Smr prim src gram/gi emsa stain bct fungi/cell Lauren Christensenz Work Phone: Start: 08-02-2019 Virus centrifuge enh ncd id imfluor stain ea Lauren Christensenz Work Phone: Start: 08-02-2019 Iaad ia mult step me thod nos each organism Lauren Christensenz Work Phone: Start: 08-02-2019 STREP PNEUMONIAE ANTIGEN Lauren Christensenz Work Phone: Start: 08-02-2019 Urnls dip stick/tabl [...] malign ant neoplasm of cervix [facility] Start: 09-16-2027 Lipid 1996 panel - S soniya or Plasma Lipid Screening [facility] Start: 09-16-2027 Lipid panel Lipid Screening [facility] Start: 09-16-2027 LIPID SCREEN LIPID SCREEN [facility] Start: 08-09-2027 Diabetes Screening Diabetes Screenin [facility] Start: 07-31-2027 Diabetes Screening Diabetes Screenin [facility] Start: 04-27-2027 Diabetes Screening Diabetes Screenin [facility] Start: 09-21-2026 Diabetes Screening Diabetes Screenin g [facility] Start: 08-08-2026 DTaP/Tdap/Td vaccine (2 - Td or Tdap) DTaP/Tdap/Td vaccine (2 - Td or Tdap) [facility] Start: 08-08-2026 DTaP/Tdap/Td vaccine (2 - Td) DTaP/Tdap/Td vaccine (2 - Td) [place] Start: 08-08-2026 DTaP/Tdap/Td Vaccine s (2 - Td or Tdap) DTaP/Tdap/Td Vaccines (2 - Td or Tdap) [facility] Start: 08-08-2026 Urine microalbumin profile [facility] Start: 08-06-2026 Diabetes Screening Diabetes Screenin g [facility] Start: 02-18-2026 Diabetes Screening Diabetes Screenin [facility] Start: 11-08-2025 [facility] Start: 10-20-2025 Screening for malign ant neoplasm of cervix Pap Smear [facility] Start: 09-15-2025 DIABETES SCREEN DIABETES SCREEN [facility] Start: 09-15-2025 Diabetes Screening Diabetes Screenin [facility] Start: 07-30-2025 Annual PCP Team [employer] kyrie Disease Visit Annual PCP Team Chronic Disease Visit [facility] Start: 06-06-2025 Annual PCP Team [employer] kyrie Disease Visit Annual PCP Team Chronic Disease Visit [facility] Start: 05-02-2025 Annual PCP Team [employer] kyrie Disease Visit Annual PCP Team Chronic Disease Visit [facility] Start: 12-29-2024 Annual PCP Team [employer] kyrie Disease Visit Annual PCP Team Chronic Disease Visit [facility] Start: 11-26-2024 End: 11-26-2024 Patient encounter procedure 11/26/2024 1:30 PM EDT Office Visit [facility] Pulmonary and Sleep Medicine [facility] [address] [place] [address] Elyssa Tesfaye NP [address] [place] [address] [facility] Pulmonary and Sleep Medicine [facility] Start: 11-20-2024 End: 11-20-2024 Patient encounter procedure 11/20/2024 3:45 PM EDT Appointment [facility] CT [address] [place] [phone] Elyssa Tesfaye NP [address] [place], [place] [id number] [facility] CT Start: 11-20-2024 End: 08-20-2025 CT Chest WO contrast CT chest wo IV contrast Imaging Routine Chronic obstructive pulmonary disease with acute lower respiratory infection (HCC) Expected: 11/20/2024, Expires: 08/20/[address] [facility] Work Phone: Comment on above: Expected: 11/20/2024 , Expires: 08/20/2025 Start: 2024 Influenza vaccination Influenz a Vaccine (Season Ended) [facility] Start: 10-24-2024 End: 10-24-2024 Patient encounter procedure 10/24/2024 10:00 AM EDT Appointment [facility] [address] [place] [phone] Elyssa Tesfaye NP [address] [place] [address] [facility] Start: 10-18-2024 End: 10-18-2024 ambulatory 10/18/2024 3:30 PM EDT Infusion [facility] [address] [place] [phone] Ziyad Menendez MD [address] [address] [facility] Start: 10-15-2024 Screening for malign ant neoplasm of lung Lung Cancer Screening [facility] Start: 10-11-2024 HPV TESTING HPV TESTING [facility] Start: 10-11-2024 PAP TESTING PAP TESTING [facility] Start: 09-24-2024 End: 09-24-2024 Patient encounter procedure 09/24/2024 10:00 AM EDT Office Visit [facility] Gynecologic Oncology - [place] [address] [facility] [address] [place] [id number] Radha Orellana, 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 - TONG SETTER [address] [place] [address] [facility] Gynecologic Oncology - [place] Start: 09-17-2024 Screening for malign ant neoplasm of cervix [facility] Start: 09-07-2024 Annual PCP Team [employer] kyrie Disease Visit Annual PCP Team Chronic Disease Visit [facility] Start: 09-04-2024 End: 09-04-2024 ambulatory 09/04/2024 2:30 PM EDT [facility]fusion [facility] [address] [place] [address] [facility] Start: 08-20-2024 End: 08-20-2025 Complete PFT pre and post bronchodilator with FENO Complete PFT pre and post bronchodilator with FENO PFT Routine Chronic obstructive pulmonary disease with acute lower respiratory infection (HCC) Centrilobular emphysema (HCC) Expected: 08/20/2024 (Approximate), Expires: 08/20/2025 [facility] Comment on above: Expected: 08/20/2024 (Approximate), Expires: 08/20/2025 Start: 08-20-2024 End: 08-20-2024 Patient encounter procedure 08/20/2024 10:30 AM EDT Office Visit [facility] Pulmonary and Sleep Medicine [facility] [address] [place] [address] Elyssa Tesfaye NP [address] [place] [address] [facility] Pulmonary and Sleep Medicine [facility] Start: 07-30-2024 End: 07-30-2024 Patient encounter procedure 07/30/2024 3:00 PM EDT Office Visit [facility] [address] [address] Herminia Case MD [address] [place] [address] back pain [facility] Comment on above: back pain Start: 06-30-2024 End: 09-29-2024 CBC W Auto Differential panel - Blood COMPLETE BLOOD COUNT AND DIFFERENTIAL Lab Routine Hyperlipidemia, mixed Expected: 06/30/2024 (Approximate), Expires: 09/29/2024 [facility] Comment on above: Expected: 06/30/2024 (Approximate), Expires: 09/29/2024 Start: 06-30-2024 End: 09-29-2024 Hemoglobin A1c in Blood HEMOGLOBIN A1C Lab Routine Hyperglycemia Expected: 06/30/2024 (Approximate), Expires: 09/29/2024 [facility] Work Phone: Comment on above: Expected: 06/30/2024 (Approximate), Expires: 09/29/2024 Start: 06-30-2024 End: 09-29-2024 Hepatic function 2000 panel - Serum or Plasma HEPATIC FUNCTION PNL Lab Routine Hyperlipidemia, mixed Expected: 06/30/2024 (Approximate), Expires: 09/29/2024 [facility] Comment on above: Expected: 06/30/2024 (Approximate), Expires: 09/29/2024 Start: 06-30-2024 End: 09-29-2024 Lipid 1996 panel - Serum or Plasma LIPID PANEL BASIC Lab Routine Hyperlipidemia, mixed Expected: 06/30/2024 (Approximate), Expires: 09/29/2024 [facility] Comment on above: Expected: 06/30/2024 (Approximate), Expires: 09/29/2024 Start: 06-09-2024 Annual PCP Team [employer] kyrie Disease Visit Annual PCP Team Chronic Disease Visit [facility] Start: 06-06-2024 End: 06-06-2024 ambulatory 06/06/2024 10:20 AM EDT [facility] [address] [address] Herminia Case MD [address] [place] [address] discuss assisted living/senior care [facility] Comment on above: discuss assisted raul ing/senior care Start: 05-19-2024 Annual PCP Team [employer] kyrie Disease Visit Annual PCP Team Chronic Disease Visit [facility] Start: 05-02-2024 Annual PCP Team [employer] kyrie Disease Visit Annual PCP Team Chronic Disease Visit [facility] Start: 03-22-2024 [facility] Start: 03-21-2024 Advance Directive Discussion Advance Directive Discussion [facility] Start: 03-21-2024 Medicare Advantage Annual Wellness Visit Medicare Advantage Annual Wellness Visit [facility] Start: 03-11-2024 Annual PCP Team [employer] kyrie Disease Visit Annual PCP Team Chronic Disease Visit [facility] Start: 01-15-2024 Annual PCP Team [employer] kyrie Disease Visit Annual PCP Team Chronic Disease Visit [facility] Start: 12-08-2023 LIPID SCREEN LIPID SCREEN [facility] Start: 11-20-2023 Covid-19 Vaccine () Covid-19 Vaccine () [facility] Start: 11-20-2023 Covid-19 Vaccine () Covid-19 Vaccine () [facility] Start: 11-20-2023 Influenza vaccination C [facility] Start: 09-18-2023 Influenza vaccination Influenza Vacc ine (#1) [facility] Comment on above: Postponed from 11/19 (Declined at this time) Start: 09-16-2023 ANNUAL PCP TEAM WEFT STRAIGHTENER KYRIE DISEASE VISIT ANNUAL PCP TEAM CHRONIC DISEASE VISIT [facility] Start: 09-16-2023 Zoledronic acid therapy ALPHA- 1 ANTITRYPSIN DEFICIENCY SCREENING [facility] Comment on above: Postponed from 11/19 (Declined at this time) Start: 09-13-2023 DIABETES SCREEN DIABETES SCREEN [facility] Start: 09-08-2023 End: 09-08-2023 Patient encounter procedure 09/08/2023 3:20 PM EDT Office Visit [facility] [address] [address] Barbi Goldberg MD [address] [place] [address] deacon [facility] Comment on above: deacon Start: 08-24-2023 End: 08-24-2023 Follow-up encounter 08/24/2023 3:00 PM EDT [facility] [place] [address] [address] Melav Juárez PA-C [address] [place] [address] Follow up visit [facility] Comment on above: Follow up visit Start: 08-16-2023 End: 08-16-2023 Patient encounter procedure 08/16/2023 10:00 AM EDT Office Visit [place] [address] [address] Herminia Case MD [address] [place], [place] [id number] sick [facility] Comment on above: sick Start: 08-03-2023 End: 08-03-2023 Follow-up encounter 08/03/2023 11:20 AM EDT [place] [id number] [address] Herminia Case MD [address] [place] [address] Follow up [facility] Comment on above: Follow up Start: 07-22-2023 End: 07-22-2023 Follow-up encounter 07/22/2023 1:00 PM EDT [place] [address] [address] Herminia Case MD [address] [place] [address] 6 week follow up-anxiety and depression [facility] Comment on above: 6 week follow up-anx iety and depression Start: 07-05-2023 End: 10-04-2023 Lipid 1996 panel - Serum or Plasma LIPID PANEL BASIC Lab Routine Medication management Expected: 07/05/2023, Expires: 10/04/2023 [facility] Work Phone: Comment on above: Expected: 07/05/2023 , Expires: 10/04/2023 Start: 06-04-2023 ANNUAL PCP TEAM WEFT STRAIGHTENER KYRIE DISEASE VISIT ANNUAL PCP TEAM CHRONIC DISEASE VISIT [facility] Start: 06-04-2023 COVID-19 VACCINE (#1) COVID-19 VACCI NE (#1) [facility] Comment on above: Postponed from 05/19 (Declined at this time) Start: 06-04-2023 SHINGRIX VACCINE (2 of 2) SHINGRIX VACCINE (2 of 2) [facility] Comment on above: Postponed from 12/05 (Declined at this time) Start: 05-02-2023 End: 08-01-2023 PAIN PANEL, UR QUANT [facility] Work Phone: Comment on above: Expected: 05/02/2023 , Expires: 08/01/2023 Start: 04-22-2023 End: 04-22-2023 Patient encounter procedure [facility] Gynecologic Oncology Start: 03-21-2023 Advance Directive Discussion Advance Directive Discussion [facility] Start: 03-21-2023 Medicare [facility] Annual Wellness Visit Medicare Advantage Annual Wellness Visit [facility] Start: 03-09-2023 End: 03-09-2023 Patient encounter procedure 03/09/2023 11:15 AM EST Office Visit [facility] Pulmonary Care [address] [place] [address] Freddy Person MD [address] [address] [facility] Start: 03-05-2023 ANNUAL PCP TEAM WEFT STRAIGHTENER KYRIE DISEASE VISIT ANNUAL PCP TEAM CHRONIC DISEASE VISIT [facility] Start: 11-20-2022 ANNUAL PCP TEAM WEFT STRAIGHTENER KYRIE DISEASE VISIT ANNUAL PCP TEAM CHRONIC DISEASE VISIT [facility] Start: 2022 Covid-19 Vaccine ( season) Covid-19 Vaccine ( season) [facility] Start: 2022 Influenza vaccination C [facility] Start: 11-17-2022 End: 11-17-2022 Patient encounter procedure 11/17/2022 9:00 AM EDT Office Visit [facility] [address] [place] [address] Nabeel Tran MD [address] [place] [address] [facility] Start: 11-10-2022 End: 11-10-2022 Patient encounter procedure 11/10/2022 3:30 PM EDT Appointment [facility] Imaging [address] [place] [id number] Kisha Pepe APRN - TONG SETTER [address] [facility] [address] [place] [address] [facility] [address] [facility] Start: 10-27-2022 End: 10-27-2022 Patient encounter procedure 10/27/2022 10:40 AM EDT Office Visit [facility] [address] [place] [address] Nabeel Tran MD [address] [place] [address] [facility] Start: 10-24-2022 Screening for malign ant neoplasm of cervix Cervical cancer screen [place], [place] Start: 10-20-2022 End: 10-21-2023 CT Chest WO contrast CT chest wo IV contrast Imaging Routine Malignant neoplasm of exocervix (HCC) Expected: 10/20/2022, Expires: 10/21/2023 [facility] Work Phone: Comment on above: Expected: 10/20/2022 , Expires: 10/21/2023 Start: 10-20-2022 End: 12-21-2023 DBT Breast - bilateral screening Bilateral screening mammogram with tomosynthesis Imaging Routine Encounter for screening mammogram for malignant neoplasm of breast Expected: 10/20/2022, Expires: 12/21/2023 [facility] Comment on above: Expected: 10/20/2022 , Expires: 12/21/2023 Start: 10-20-2022 End: 10-20-2022 Patient encounter procedure 10/20/2022 Office Visit Gynecologic Oncology Kisha Pepe APRN - TONG SETTER [address] [facility] [place] [address] [facility] [place] GEOTHERMAL TECHNICIAN Oncology Start: 10-14-2022 Influenza vaccination LUNG CANCER SC REENING [facility] Start: 10-14-2022 Screening for malign ant neoplasm of lung Lung Cancer Screening [facility] Start: 09-17-2022 Influenza vaccination INFLUENZA (#1) [facility] Comment on above: Postponed from 11/19 (Declined at this time) Start: 08-17-2022 End: 10-17-2022 Lipid 1996 panel - Serum or Plasma LIPID PANEL BASIC Lab Routine Medication management Expected: 08/17/2022, Expires: 10/17/2022 [facility] Work Phone: Comment on above: Expected: 08/17/2022 , Expires: 10/17/2022 Start: 08-06-2022 ANNUAL PCP TEAM WEFT STRAIGHTENER KYRIE DISEASE VISIT ANNUAL PCP TEAM CHRONIC DISEASE VISIT [facility] Start: 05-06-2022 ANNUAL PCP TEAM WEFT STRAIGHTENER KYRIE DISEASE VISIT ANNUAL PCP TEAM CHRONIC DISEASE VISIT [facility] Start: 03-21-2022 ADVANCE DIRECTIVE DISCUSSION ADVANCE DIRECTIVE DISCUSSION [facility] Start: 03-17-2022 End: 03-17-2022 Patient encounter procedure 03/17/2022 Office Visit Gynecologic Oncology Ziyad Menendez MD [address] [facility] [place] [address] [facility] [place] GEOTHERMAL TECHNICIAN Oncology Start: 03-11-2022 Pneumococcal 0-64 ye ars Vaccine (2 of 2 - PPSV23) Pneumococcal 0-64 years Vaccine (2 of 2 - PPSV23) [facility] Work Phone: Start: 03-11-2022 Pneumococcal 0-64 ye ars Vaccine (2 of 4 - PPSV23) Pneumococcal 0-64 years Vaccine (2 of 4 - PPSV23) [facility] Work Phone: Start: 02-16-2022 End: 04-18-2022 CBC panel - Blood by Automated count CBC Lab Routine Medication management Expected: 02/16/2022, Expires: 04/18/2022 [facility] Work Phone: Comment on above: Expected: 02/16/2022 , Expires: 04/18/2022 Start: 02-16-2022 End: 04-18-2022 SCHEDULE LAB TESTING SCHEDULE LAB TESTING Lab Routine Expected: 02/16/2022, Expires: 04/18/2022 [facility] Work Phone: Comment on above: Expected: 02/16/2022 , Expires: 04/18/2022 Start: 12-26-2021 Influenza vaccination LUNG CANCER SC REENING [facility] Start: 12-09-2021 End: 12-09-2021 Patient encounter procedure 12/09/2021 Appointment Infusion Therapy [facility] Start: 2021 ADVANCE DIRECTIVE DISCUSSION ADVANCE DIRECTIVE DISCUSSION [facility] Start: 2021 BONE DENSITY BONE DENSITY [facility] Start: 2021 Bone Density Screening Bone Density Screening [facility] Start: 2021 Influenza vaccination C [facility] Start: 2021 Screening for osteoporosis Bone Density Screening [facility] Start: 10-27-2021 End: 12-27-2021 CBC panel - Blood by Automated count CBC Lab Routine Medication management Expected: 10/27/2021, Expires: 12/27/2021 [facility] Work Phone: Comment on above: Expected: 10/27/2021 , Expires: 12/27/2021 Start: 10-27-2021 End: 12-27-2021 SCHEDULE LAB TESTING SCHEDULE LAB TESTING Lab Routine Expected: 10/27/2021, Expires: 12/27/2021 [facility] Work Phone: Comment on above: Expected: 10/27/2021 , Expires: 12/27/2021 Start: 09-24-2021 Screening for malign ant neoplasm of lung Low dose CT lung screening [facility] Work Phone: Start: 09-15-2021 COLORECTAL CANCER SCREENING COLORECTAL CANCER SCREENING [facility] Comment on above: Postponed from 11/19 (Declined at this time) Start: 09-15-2021 COVID-19 VACCINE (#1) COVID-19 VACCI NE (#1) [facility] Comment on above: Postponed from 11/19 (Declined at this time) Start: 09-15-2021 COVID-19 VACCINE (1) COVID-19 VACCIN E (1) [facility] Comment on above: Postponed from 11/19 (Declined at this time) Start: 09-15-2021 SHINGRIX VACCINE (2 of 2) SHINGRIX VACCINE (2 of 2) [facility] Comment on above: Postponed from 12/05 (Declined at this time) Start: 08-06-2021 End: 10-06-2021 CBC W Auto Differential panel - Blood CBC + DIFF Lab Routine Panlobular emphysema (HCC) Chronic respiratory failure with hypoxia (HCC) Expected: 08/06/2021, Expires: 10/06/2021 [facility] Work Phone: Comment on above: Expected: 08/06/2021 , Expires: 10/06/2021 Start: 08-06-2021 End: 10-06-2021 Comprehensive metabolic 2000 panel - Serum or Plasma COMP METABOLIC PANEL Lab Routine Panlobular emphysema (HCC) Chronic respiratory failure with hypoxia (HCC) Expected: 08/06/2021, Expires: 10/06/2021 [facility] Work Phone: Comment on above: Expected: 08/06/2021 , Expires: 10/06/2021 Start: 08-06-2021 End: 10-06-2021 LIPID PANEL BASIC LIPID PANEL BASIC Lab Routine Screening for lipid disorders Expected: 08/06/2021, Expires: 10/06/2021 [facility] Work Phone: Comment on above: Expected: 08/06/2021 , Expires: 10/06/2021 Start: 08-06-2021 End: 10-06-2021 PAIN PANEL, UR QUANT PAIN PANEL, UR QUANT Lab Routine Medication monitoring encounter Expected: 08/06/2021, Expires: 10/06/2021 [facility] Work Phone: Comment on above: Expected: 08/06/2021 , Expires: 10/06/2021 Start: 08-06-2021 End: 10-06-2021 VITAMIN D 25 HYDROXY VITAMIN D 25 HYDROXY Lab Routine Vitamin D deficiency Expected: 08/06/2021, Expires: 10/06/2021 [facility] Work Phone: Comment on above: Expected: 08/06/2021 , Expires: 10/06/2021 Start: 06-06-2021 Screening for malign ant neoplasm of lung Low dose CT lung screening [facility] Work Phone: Start: 02-06-2021 End: 02-06-2021 Patient encounter procedure 02/06/2021 Appointment Infusion Therapy [facility] Start: 11-23-2020 Statin Therapy Statin Therapy [facility] Start: 11-21-2020 Lipid panel [facility] Start: 2020 Influenza vaccination Flu vaccine (# 1) [facility] Work Phone: Start: 10-13-2020 End: 10-13-2020 Office Visit [facility] [place] GEOTHERMAL TECHNICIAN Oncology Start: 08-08-2020 End: 08-08-2020 Appointment 08/08/2020 Appointment Infusion Therapy [facility] Start: 07-01-2020 End: 07-01-2020 Telemedicine 07/01/2020 Telemedicine Cardiology Nell Padilla MD [address] [place] [address] [address] [place] [address] [phone] [facility] Start: 06-13-2020 End: 06-13-2020 Appointment 06/13/2020 Appointment [facility]fusion Therapy [facility] Start: 06-09-2020 End: 06-09-2020 Office Visit 06/09/2020 Office Visit Gynecologic Oncology Ziyad Menendez MD [address] [facility] [place], [place] [id number] [facility] [place] GEOTHERMAL TECHNICIAN Oncology Start: 04-15-2020 Lipid panel Lipid screen [facility] [place], [place] Start: 03-28-2020 End: 03-28-2020 Virtual Visit 03/28/2020 Virtual Visit Palliative Care Pollack, David M, DO [address] [address] [phone] [facility] Start: 03-17-2020 End: 03-17-2020 Office Visit [facility] GEOTHERMAL TECHNICIAN Oncology Comment on above: 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) Start: 03-10-2020 End: 03-10-2020 Appointment 03/10/[address] [facility] [address] Scan Start: 02-22-2020 End: 02-22-2020 Appointment [facility] Start: 02-21-2020 End: 02-21-2020 Office Visit [facility] [place] GEOTHERMAL TECHNICIAN Oncology Start: 02-08-2020 End: 02-08-2020 Appointment [facility] Start: 02-07-2020 End: 02-07-2020 Appointment 02/07/2020 Appointment Infusion Therapy [facility] Start: 02-01-2020 End: 02-01-2020 Appointment [facility] Start: 01-31-2020 End: 01-31-2020 Appointment [facility] Start: 01-25-2020 End: 01-25-2020 Appointment [facility] Start: 01-24-2020 End: 01-24-2020 Appointment 01/24/2020 Appointment Infusion Therapy [facility] Start: 01-18-2020 End: 01-18-2020 Appointment 01/18/2020 Appointment Infusion Therapy [facility] Start: 01-17-2020 End: 01-17-2020 Appointment [facility] Start: 12-13-2019 End: 12-13-2019 Office Visit 12/13/2019 Office Visit Gynecologic Oncology Ziyad Menendez MD [address] [place] [address] [phone] [facility] GEOTHERMAL TECHNICIAN Oncology Start: 12-07-2019 End: 12-07-2019 Office Visit 12/07/2019 Office Visit Gynecologic Oncology Ziyad Menendez MD [address] [place], [place] [phone] [facility] Start: 12-06-2019 Shingles Vaccine (2 of 2) Shingles Vaccine (2 of 2) [facility] Start: 12-06-2019 SHINGRIX VACCINE (2 of 2) SHINGRIX VACCINE (2 of 2) [facility] Start: 12-06-2019 Zoster Vaccines (2 of 2) Zoster Vacc otto (2 of 2) [facility] Start: 11-22-2019 End: 11-22-2019 Office Visit 11/22/2019 Office Visit Gynecologic Oncology Ziyad Menendez MD [address] [place], [place] [id number] [facility] [place] GEOTHERMAL TECHNICIAN Oncology Start: 11-20-2019 Influenza vaccination Flu vaccine (# 1) [place], [place] Start: 11-09-2019 End: 11-08-2020 US Lower Extremity Venous Right US Lower Extremity Venous Right Imaging Routine Leg swelling Expected: 11/09/2019, Expires: 11/08/2020 [place], [place] Comment on above: Expected: 11/09/2019 , Expires: 11/08/2020 Start: 11-06-2019 End: 11-06-2019 Appointment [facility] Start: 10-30-2019 End: 10-30-2019 Appointment 10/30/2019 Appointment Pre-Admission Testing Ziyad Menendez MD [address] [facility] [place] [address] [facility] Pre-Admit Testing Start: 10-25-2019 Annual Wellness Visi t (AWV) Annual Wellness Visit (AWV) [place], [place] Start: 10-25-2019 End: 10-25-2019 Office Visit 10/25/2019 Office Visit Gynecologic Oncology Ziyad Menendez MD [address] [facility] [place], [place] [id number] [facility] [place] GEOTHERMAL TECHNICIAN Oncology Start: 10-18-2019 Screening for malign ant neoplasm of lung Low dose CT lung screening [place], [place] Start: 08-27-2019 Screening for malign ant neoplasm of breast Breast cancer screen [facility] Start: 12-10-2018 Screening for osteoporosis Bone Density Scan [facility] Start: 08-26-2018 Screening for malign ant neoplasm of breast [facility] Start: 03-11-2018 PNEUMOCOCCAL (2 - PCV) PNEUMOCOCCAL (2 - PCV) [facility] Start: 03-11-2018 Pneumococcal 0-64 ye ars Vaccine (2 - PCV) Pneumococcal 0-64 years Vaccine (2 - PCV) [facility] Start: 03-11-2018 Pneumococcal Vaccine : 50+ Years (2 of 2 - PCV) Pneumococcal Vaccine: 50+ Years (2 of 2 - PCV) [facility] Start: 03-11-2018 Pneumococcal Vaccine : 65+ (2 - PCV) Pneumococcal Vaccine: 65+ (2 - PCV) [facility] Start: 03-11-2018 Pneumococcal Vaccine : 65+ Years (2 - PCV) Pneumococcal Vaccine: 65+ Years (2 - PCV) [facility] Start: 03-11-2018 Pneumococcal Vaccine : 65+ Years (2 of 2 - PCV) Pneumococcal Vaccine: 65+ Years (2 of 2 - PCV) [facility] Start: 03-11-2018 PNEUMOCOCCAL: 65+ (2 - PCV) PNEUMOCOCCAL: 65+ (2 - PCV) [facility] Start: 2016 RSV Immunization age d 60 or older (1 - 1-dose 60+ series) RSV Immunization aged 60 or older (1 - 1-dose 60+ series) [facility] Start: 2016 RSV Immunization for Adults (1 - Risk 60-74 years 1-dose series) RSV Immunization for Adults (1 - Risk 60-74 years 1-dose series) [facility] Start: 2016 RSV Vaccine (1 - 1-d ose 60+ series) RSV Vaccine (1 - 1-dose 60+ series) [facility] Start: 2016 RSV Vaccine (1 - Ris k 60-74 years 1-dose series) RSV Vaccine (1 - Risk 60-74 years 1-dose series) [facility] Start: 04-15-2016 Lipid panel Lipid screen [place], [place] Start: 2006 Screening for malign ant neoplasm of colon Colon cancer screen colonoscopy [place], [place] Start: 2006 Screening for malign ant neoplasm of lung Low dose CT lung screening [facility] Start: 2006 Shingles Vaccine (1 of 2) Shingles Vaccine (1 of 2) [place] Start: 2001 COLOGUARD (FIT-DNA) COLOGUARD (FIT-D NA) [facility] Start: 2001 Colonoscopy COLONOSCOPY [facility] Start: 2001 COLORECTAL CANCER SCREENING COLORECTAL CANCER SCREENING [facility] Start: [address] COLONOGRAPHY [facility] Start: 2001 FECAL OCCULT BLOOD FECAL OCCULT BLOO D [facility] Start: 2001 Screening for malign ant neoplasm of colon [facility] Start: 2001 [facility]COPY [facility] Start: 1996 Mammography [facility] Start: 1996 Screening for malign ant neoplasm of breast [facility] Start: 1986 Screening for malign ant neoplasm of cervix [facility] Start: 1986 Zoledronic acid therapy ALPHA- 1 ANTITRYPSIN DEFICIENCY SCREENING [facility] Start: 1977 Screening for malign ant neoplasm of cervix [place], [place] Start: 1974 Hepatitis C screening Hepatitis C Sc [facility] Start: 1972 COVID-19 Vaccine (1) COVID-19 Vaccin e (1) [facility] Work Phone: Start: 1968 COVID-19 Vaccine (1) COVID-19 Vaccin e (1) [facility] Work Phone: Start: 1968 Depression Monitoring Depression Mon itoring [facility] Start: 1968 Depresssion Monitoring Depresssion M onitoring [facility] Start: 1961 COVID-19 Vaccine (#1) COVID-19 Vacci ne (#1) [facility] Start: 05-19-1957 COVID-19 VACCINE (#1) COVID-19 VACCI NE (#1) [facility] Start: 1956 Annual wellness visit Medicare Initial Physical (IPPE) [facility] Start: 1956 Annual Wellness Visi t (AWV) Annual Wellness Visit (AWV) [facility] Start: 1956 Hepatitis B Vaccines (1 of 3 - 3-dose series) Hepatitis B Vaccines (1 of 3 - 3-dose series) [facility] Start: 1956 Medicare Advantage Annual Wellness Visit (AWV) Medicare Advantage Annual Wellness Visit (AWV) [facility] Start: 1956 Screening for malign ant neoplasm of colon [facility] Start: 1956 Screening for osteoporosis Bone Density Scan [facility] Retention Education Bacteria identified in Blood by Culture [facility] Work Phone: Basic metabolic 2000 panel Basic Metabolic Panel Lab Routine Daily until discontinued starting 08/04/2019, 1 completed [facility] [place] Comment on above: Daily until disconti nued starting 08/04/2019, 1 completed Basic Metabolic Pane l w/ Reflex to MG Basic Metabolic Panel w/ Reflex to MG Lab Routine Daily until discontinued starting 11/23/2019, 2 completed [facility] [place] Comment on above: Daily until disconti nued starting 11/23/2019, 2 completed CBC Auto Differential [place], [place] Comment on above: Daily until disconti nued starting 08/04/2019, 1 completed Daily until disconti nued starting 11/23/2019, 2 completed End: 02-01-2020 CBC Auto Differential CBC Auto Differential Lab Routine Malignant neoplasm of exocervix (HCC) 1 Occurrences starting 02/01/2020 until 02/01/2020 [facility] [place] Comment on above: 1 Occurrences starti ng 02/01/2020 until 02/01/2020 COLOGUARD COLOGUARD Lab Ro utine Screening for colon cancer Ordered: 09/15/2022 [facility] Work Phone: Comment on above: Ordered: 09/15/2022 End: 02-01-2020 Comprehensive metabolic 2000 panel Comprehensive Metabolic Panel Lab Routine Malignant neoplasm of exocervix (HCC) 1 Occurrences starting 02/01/2020 until 02/01/2020 [facility] [place] Comment on above: 1 Occurrences starti ng 02/01/2020 until 02/01/2020 End: 03-16-2020 COVID-19 COVID-19 Lab STAT One Time for 1 Occurrences starting 03/16/2020 until 03/16/2020 [facility] Comment on above: One Time for 1 Occur rences starting 03/16/2020 until 03/16/2020 COVID-19 COVID-19 Lab STA T 03/16/2020 1:18 PM EST [facility], [place] End: 06-09-2020 Creatinine [Mass/Vol] Creatinine, Serum Lab [...] study 1 Occurrences starting 03/10/2020 until 03/10/2020 [place], [place] Comment on above: 1 Occurrences starti ng 03/10/2020 until 03/10/2020 CT CHEST ABDOMEN PEL VIS W CONTRAST CT CHEST ABDOMEN PELVIS W CONTRAST Imaging Routine Malignant neoplasm of exocervix (HCC) Lung nodule seen on imaging study 03/10/2020 1:23 PM EST [place], [place] End: 06-06-2020 CT Chest W Contrast [...] starting 10/14/2021 until 10/14/2021 Culture, Blood 1 [facility], [place] End: 03-16-2020 Culture, Blood 1 Culture, Blood 1 Microbiology STAT One Time for 1 Occurrences starting 03/16/2020 until 03/16/2020 [place] Comment on above: One Time for 1 Occur rences starting 03/16/2020 until 03/16/2020 Culture, Blood 2 [facility], [place] End: 03-16-2020 Culture, Blood 2 Culture, Blood 2 Microbiology STAT One Time for 1 Occurrences starting 03/16/2020 until 03/16/2020 [place], [place] Comment on above: One Time for 1 Occur rences starting 03/16/2020 until 03/16/2020 Culture, Respiratory Culture, Re spiratory Microbiology Routine 08/02/2019 11:55 PM EDT [place], [place] Cytology Cervical or vaginal smear or scraping study Pap Smear Pathology and Cytology Routine Malignant neoplasm of exocervix (HCC) 10/20/2022 2:32 PM EDT [employer] End: 06-21-2025 DBT Breast - bilateral screening PAOLO SCREENING W [facility] Radiology Routine Encounter for screening mammogram for breast cancer 1 Occurrences starting 05/22/2024 until 06/21/2025 [facility] Work Phone: Comment on above: 1 Occurrences starti ng 05/22/2024 until 06/21/2025 ECG 12 lead ECG 12 lead CV E CG STAT 05/21/2022 5:47 AM [employer] Work Phone: ECG 12 lead ECG 12 lead CV E CG STAT 04/27/2024 11:57 PM [employer] Work Phone: EKG 12 Lead - Chest Pain [place], [place] End: 08-04-2019 Home O2 eval (desaturation screen) Home O2 eval (desaturation screen) Respiratory Care Routine One Time for 1 Occurrences starting 08/04/2019 until 08/04/2019 [place], [place] Comment on above: One Time for 1 Occur rences starting 08/04/2019 until 08/04/2019 HPV High Risk PCR HPV High Risk PCR Microbiology Routine Malignant neoplasm of exocervix (HCC) 10/20/2022 2:32 PM EDT [employer] End: 02-01-2020 Magnesium [Mass/Vol] Magnesium Lab Routine Malignant neoplasm of exocervix (HCC) 1 Occurrences starting 02/01/2020 until 02/01/2020 [place], [place] Comment on above: 1 Occurrences starti ng 02/01/2020 until 02/01/2020 End: 08-13-2023 PAOLO SCREENING PAOLO SCREENING Radiology Routine Encounter for screening mammogram for breast cancer 1 Occurrences starting 07/14/2022 until 08/13/2023 [facility] Work Phone: Comment on above: 1 Occurrences starti ng 07/14/2022 until 08/13/2023 End: 09-05-2022 PAOLO SCREENING W CARON PAOLO SCREENING W CARON Radiology Routine Encounter for screening mammogram for malignant neoplasm of breast 1 Occurrences starting 08/06/2021 until 09/05/2022 [facility] Work Phone: Comment on above: 1 Occurrences starti ng 08/06/2021 until 09/05/2022 MDI Treatment MDI Treatment Respiratory Care Routine Every 6hr As Needed until discontinued starting 08/02/2019 [facility] Comment on above: Every 6hr As Needed until discontinued starting 08/02/2019 End: 07-21-2024 MG Breast Screening PAOLO SCREENING Radiology Routine Encounter for screening mammogram for breast cancer 1 Occurrences starting 06/22/2023 until 07/21/2024 [facility] Work Phone: Comment on above: 1 Occurrences starti ng 06/22/2023 until 07/21/2024 Nebulizer therapy HHN Treatment Respiratory Care Routine 0600, 1000, 1400, 1800, 2200 until discontinued starting 03/16/2020, 6 completed [employer] AKONEL Comment on above: 0600, 1000, 1400, 18 00, 2200 until discontinued starting 03/16/2020, 6 completed Oxygen therapy [[facility] Data Set] [facility] Comment on above: Daily until disconti nued starting 11/21/2019, 2 completed Daily until disconti nued starting 11/21/2019 PAIN PANEL, UR QUANT PAIN PANEL, UR QUANT Lab Routine Medication monitoring encounter 05/02/2023 3:12 PM EST [facility] Work Phone: End: 08-02-2019 Respiratory Virus PCR Panel Respiratory Virus PCR Panel Microbiology Add-On One Time for 1 Occurrences starting 08/02/2019 until 08/02/2019 [facility] Comment on above: One Time for 1 Occur rences starting 08/02/2019 until 08/02/2019 SPECIMEN VALIDITY, URINE SPECIME N VALIDITY, URINE Lab Routine Medication monitoring encounter 05/02/2023 3:12 PM EST [facility] Work Phone: End: 06-09-2020 Urea nitrogen [Mass/Vol] BUN Lab Routine Malignant neoplasm of exocervix (HCC) 1 Occurrences starting 06/09/2020 until 06/09/2020 [facility] Work Phone: Comment on above: 1 Occurrences starti ng 06/09/2020 until 06/09/2020 End: 10-27-2019 Urinalysis Urinalysis Lab STAT One Time for 1 Occurrences starting 10/27/2019 until 10/27/2019 [place] Comment on above: One Time for 1 Occur rences starting 10/27/2019 until 10/27/2019 End: 11-10-2019 US Lower Extremity Venous Right US Lower Extremity Venous Right Imaging Routine Leg swelling 1 Occurrences starting 11/10/2019 until 11/10/2019 [place] Comment on above: 1 Occurrences starti ng 11/10/2019 until 11/10/2019 US Lower Extremity Venous Right US Lower Extremity Venous Right Imaging Routine Leg swelling 11/10/2019 6:00 PM EDT [facility] Immunizations Immunization Date Immunization Notes Care Provider [facility] 01-14-2023 pneumococcal Conjuga te, unspecified formulation Herminia Case MD Work Phone: [facility] Work Phone: 01-14-2023 pneumococcal (PCV20) vaccine, 20 valent (PREVNAR 20) Herminia Case MD Work Phone: [facility] 10-11-2019 zoster vaccine recombinant Melva Sandoval PA-C Work Phone: [facility] 12-07-2018 influenza, injectabl e, quadrivalent, contains preservative Melva Sandoval PA-C Work Phone: [facility] 12-07-2018 influenza virus vaccine, unspecified formulation Kisha Pepe 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 - TONG SETTER Work Phone: [facility] 01-10-2018 influenza nasal, unspecified formulation Herminia Case MD Work Phone: [facility] 01-10-2018 influenza virus vaccine, unspecified formulation Joanieminoo Johnson [facility] 01-10-2018 influenza, seasonal, injectable Melva Ladonna PA-C Work Phone: [facility] 03-11-2017 pneumococcal polysaccharide vaccine, 23 valent Melva Ladonna PA-C Work Phone: [facility] Work Phone: 02-15-2017 influenza, injectabl e, quadrivalent, preservative free Melva [place] PA-C Work Phone: [facility] 08-08-2016 tetanus toxoid, redu manjula diphtheria toxoid, and acellular pertussis vaccine, adsorbed [facility] Work Phone: 02-10-2013 influenza, seasonal, injectable, preservative free Melva [place] PA-C Work Phone: [facility] 02-15-2012 influenza, seasonal, injectable, preservative free Melva [place] PA-C Work Phone: [facility] NEGATED: Highlighted row has not occurred!05-22-2022 Influenza,seasonal,sout radha Hemisphere,quad,preserv Free Martha Flores MD Work Phone: [facility] Comment on above: Deferred: Patient Re fused Payers Date Payer Category Payer Self-pay 2022 Medicare (Managed Care) [facility] DUAL COMPLETE HMO POS SNP [id number] 2022 Medicare O [facility] DUAL COMPLET E [id number] 2022 Unknown [id number] 2021 Medicare HUMANA MEDICARE HUMANA GOLD PLUS [id number] 2021-Present [phone] [place] [id number] [facility] [id number] 2021 Medicare HUMANA MEDICARE HUMANA GOLD PLUS O [id number] 2021-Present [phone] [id number] [place] [id number] 2019 Medicaid [id number] 2019 Medicaid [id number] 2019 Medicare MEDICARE MEDICAR E PART A AND B [id number] 2019-Present [phone] [place] [address] [id number] 2019 Medicare [id number] 2014 Unknown [facility] HEALTH PLAN [facility] xxxxxxxxxxxx 2014-Present [phone] [address] [place] [address] xxxxxxxxxxxx [id number] 2014 Unknown [id number] 1955 Unknown [id number] 1955 Unknown [id number] 1955 Unknown [id number] 1955 Unknown [id number] 1955 Unknown [id number] Private Health Insurance Unknown [id number] Unknown [id number] Social History Date Type Detail Facility Start: 08-02-2019 End: 09-15-2022 Tobacco smoking status NHIS Former smoker [facility] Start: 03-21-1971 End: 03-21-2017 History of tobacco use Current smoker [place] Start: 03-21-1971 End: 03-21-2017 History of tobacco use Cigarette Smoker [place] Start: 08-02-2019 End: 09-08-2022 Cigarettes smoked current (pack per day) - Reported [facility] Start: 08-02-2019 End: 10-20-2020 Alcohol intake Current drinker of alcohol (finding) [facility] [employer] ONEL RONQUILLO Start: 10-19-2017 Alcohol Comment very rarely [facility] [employer] ONEL RONQUILLO Start: 1955 Sex Assigned At Not on file [facility] Exposure to SARS-CoV -2 (event) Unable to assess [facility] [employer] [facility]ON[facility] Start: 10-21-2019 End: 09-15-2022 Tobacco use and exposure Never used [employer] ONEL Hagen Start: 07-27-2021 End: 11-06-2022 Exposure to SARS-CoV-2 (event) Not sure [facility] [employer] ONEL RONQUILLO Start: 11-05-2019 Alcohol Comment 1-2 times/yr [facility] [employer] ONEL RONQUILLO Start: 11-21-2019 Tobacco Comment pt states she quit 4-5 years ago [facility] [employer] [facility] Start: 11-28-2020 End: 12-30-2023 Alcohol intake Current non-drinker of alcohol (finding) [facility] Start: 05-06-2021 End: 05-21-2022 History SDOH Alcohol Frequency 2 [facility] Start: 05-06-2021 End: 05-21-2022 History SDOH Alcohol Std Drinks 1 [facility] Start: 05-06-2021 History SDOH Social Connections Phone 5 [facility] Start: 05-06-2021 End: 03-05-2022 History SDOH Social Connections Get Together 4 [facility] Start: 05-06-2021 End: 03-05-2022 History SDOH Social Connections Meetings 98 [facility] Start: 05-06-2021 End: 03-05-2022 History SDOH Social Connections Living 3 [facility] Start: 05-06-2021 End: 05-21-2022 History SDOH Physical Activity DPW 0 [facility] Start: 07-11-2018 End: 09-15-2022 Tobacco Comment vaping intermittently [facility] Start: 03-05-2022 End: 09-08-2022 Social connection and isolation panel [facility] Do you belong to any clubs or organizations such as gnosticism groups, unions, fraternal or athletic groups, or school groups? No [facility] How often do you att end meetings of the clubs or organizations you belong to? Patient refused [facility] Are you now , , , , never or living with a partner? [facility] How often to you hav e a drink containing alcohol? Never [facility] How hard is it for y ou to pay for the very basics like food, housing, medical care, and heating Not very hard [facility] Do you feel stress - tense, restless, nervous, or anxious, or unable to sleep at night because your mind is troubled all the time - these days [OSQ] To some extent [facility] (I/We) worried jeannie er (my/our) food would run out before (I/we) got money to buy more. Never true [facility] The food that (I/we) bought just didn't last, and (I/we) didn't have money to get more. DK or Refused [facility] Start: 04-26-2021 Gender identity Identifies as female gender (finding) [facility] Start: 04-26-2021 Sexual orientation Heterosexual (finding) [facility] Start: 05-21-2022 End: 08-20-2024 Alcohol intake Ex-drinker (finding) [facility] Start: 05-21-2022 Alcohol Comment Approx once a year [facility] Are you now , , , , never or living with a partner? [facility] Do you feel stress - tense, restless, nervous, or anxious, or unable to sleep at night because your mind is troubled all the time - these days [OSQ] Only a little [facility] Start: 10-19-2021 Sex Female (finding) [facility] History of tobacco use Passive smoker [facility] How often do you nee d to have someone help you when you read instructions, pamphlets, or other written material from your doctor or pharmacy [SILS] Rarely [facility] Medical Equipment Procedure Code Equipment Code Equipment Origin al Text Equipment Identifier Dates [employer] Port-12/19/2019 [id number] Start: 12-19-2019 Comment on above: Description: [employer] Port Left Chest Regular Size. Screw Josie 7.3x85mm 16mm-Thrd - [id number] Start: 11-07-2022 Screw Josie 7.3x85mm 16mm-Thrd - [id number] Start: 11-07-2022 Functional Status Date Assessment Result Facility 06-06-2024 Total score [AUDIT-C] 0 06/07/19 9:46 AM EDT UserNa [facility] 06-06-2024 Within the last year , have you been humiliated or emotionally abused in other ways by your partner or ex-partner? No 06/06/2024 9:46 AM EDT User, Charliet No [facility] 06-06-2024 Within the last year , have you been afraid of your partner or ex-partner? No 06/06/2024 9:46 AM EDT User, Charliet No [facility] 06-06-2024 Within the last year , have you been raped or forced to have any kind of sexual activity by your partner or ex-partner? No 06/06/2024 9:46 AM EDT UserCharliet No [facility] 06-06-2024 Within the last year , have you been kicked, hit, slapped, or otherwise physically hurt by your partner or ex-partner? No 06/06/2024 9:46 AM EDT User, Charliet No [facility] 06-06-2024 How often to you hav e a drink containing alcohol? Never 06/06/2024 9:46 AM EDT UserCharliet Never [facility] 06-06-2024 Functional status Patient does n ot drink 06/06/2024 9:46 AM EDT User, Charliet Patient does not drink [facility] 06-06-2024 How often do you hav e 6 or more drinks on 1 occasion? Never 06/06/2024 9:46 AM EDT User, Heliohart Never [facility] Clinical Notes 09-24-2020 to 09-10-2024 Telephone Encounter [...] Weathers MA September 10, 2024 9:01 AM [facility] 09-10-2024 Miscellaneous Notes Prescription Refill Information The [...] 2024 9:01 AM documented in this encounter [facility] 09-07-2024 Telephone encounter Note Spoke to Nilesh from [facility] and scheduled patient for a follow up on 09/24@10am. Patient has not been seen for quite a while and also is requesting port removal to be scheduled. [facility] 09-07-2024 Miscellaneous Notes Spoke to Nilesh from [facility] and scheduled patient for a follow up on 09/24@10am. Patient has not been seen for quite a while and also is requesting port removal to be scheduled. Nilesh from [facility] states pt's port was flushed but there was no blood draw back. Patient requested for the port to be removed due to not being used for roughly 1 year. Please contact Nilesh with further questions at [phone] documented in this encounter [facility] 09-07-2024 Telephone encounter Note Nilesh from [facility] pt's port was flushed but there was no blood draw back. Patient requested for the port to be removed due to not being used for roughly 1 year. Please contact Nilesh with further questions at [phone] [facility] 09-06-2024 History of Presen t illness [...] answered. documented in this encounter [facility] 09-03-2024 Telephone encounter Note Noted. Melva Juárez PA-C [facility] 09-03-2024 Miscellaneous Notes Noted. Melav Juárez PA-C Patient returned call and LVM. Called and spoke with patient Patient was admitted to hospital and recently discharged to a [facility], patient's daughter had submitted request in anticipation of discharge. [facility] is currently managing medications, no longer in [...] 2024 2:19 PM documented in this encounter [facility] 09-03-2024 Telephone encounter Note Patient returned call and LVM. Called and spoke with patient Patient was admitted to hospital and recently discharged to a [facility], patient's daughter had submitted request in anticipation of discharge. [facility] is currently managing medications, no longer in need Unsure of anticipated discharge, and if it will be to assisted living or back to home. Will plan to keep office aware. [facility] 08-29-2024 Telephone encounter Note Called patient, no answer at this time. Left voicemail to call the office back. [facility] 08-28-2024 Telephone encounter Note Patient had 30 pills filled on on 08/22. Is she following up with a different provider for prescriptions? [facility] 08-22-2024 Telephone encounter Note Prescription Refill Information [...] Weathers MA August 22, 2024 2:19 PM [facility] 08-20-2024 Telephone encounter Note Prescription Refill Information [...] Parks LPN August 20, 2024 11:39 AM [facility] 08-20-2024 Miscellaneous Notes Prescription Refill Information The [...] 2024 11:39 AM documented in this encounter [facility] 08-20-2024 History of Presen t illness Narrative Images from the original note were not included. [facility] Pulmonary Medicine [address] [place] [address] Date of Service: 08/20/2024 Visit type: An Established patient Chief Complaint/Reason for Referral: Hospital Follow-up (COPD,PSA/MSSA/STREP LRTI/ESTABLISH PULM OUTPATIENT...) SUBJECTIVE History of Present Illness: Gonzalo Deluca ( 1955) is a 68 y.o. female patient, with significant PMH of COPD, emphysema, chronic respiratory failure 3L, pulmonary nodule, sciatica, and tobacco use being seen for pulmonary hospital follow up Admitted [facility] 07/30/2024 - 08/08/2024 pulmonology was consulted for triple bacterial pneumonia, treated for pseudomona, moraxella and Streptoccus, on top of severe pneumonia, with increased oxygen requirements and chronic respiratory failure. Failure to thrive. Chronic resp failure with severe emphysema, 3L baseline O2. Treated with Dulera, Spiriva. Reports significant weight loss of 40 lbs over the past few months. Currently at [facility], [facility]pc. Presents today with son, states breathing is better than before the hospital. Wearing 3L supplemental continuous oxygen today. SpO2 is 92%, does not appear distressed. Staying at [facility] for fpc and has been beneficial. Follows with palliative care for dyspnea, taking oxycodone and has been helping. Reports has gained some weight since breathing has improved and being at fpc facility. Expressed to keep up whatever it [...] prednisone taper. Wearing 3L O2 at baseline. prison currently 2. Acute on chronic respiratory failure [...] at this time 7. Severe malnutrition (CMS/HCC) (HCC) - pulmonary cachexia; palliative following and treating dyspnea with benefits - trying to gain weight since breathing has improved - eating what hub lead has recommended while at fpc facility FOLLOW UP: Follow up in about [...] major depression (HCC) Sciatica Thoracic compression fracture ([facility]) Vitamin D deficiency [2] Past Surgical History: Procedure Laterality Date CYSTOSCOPY 01/12/2017 OFFICE PROCEDURE CYSTOSCOPY 02/11/2017 C&P bladder biopsy EYE SURGERY detached retina 1994 HYSTERECTOMY 11/06/2019 ABDOMINAL RADICAL HYSTERECTOMY WITH BSO AND PELVIC LYMPH; DR. ZIYAD MENENDEZ [facility] OTHER SURGICAL HISTORY Left 12/19/2019 Med Port [...] Hx documented in this encounter [facility] 08-20-2024 Instructions Rosalee Marvin - 08/20/2024 10:30 AM EDT YOUR APPOINTMENT TODAY WAS WITH THE [facility], COPD CLINIC, PULMONARY AND SLEEP MEDICINE OFFICE. PLEASE CALL OUR OFFICE AT [phone] for our [place] office location or [phone] for our [place] location, IF YOU HAVE NOT RECEIVED YOUR [...] to make improvements. COVID-19 VACCINATION INFORMATION: PH. [phone] HEALTH.[email or web address]/VACCINE [facility] Central Scheduling [phone] [facility] Sleep Scheduling [phone] documented in this encounter [facility] 08-14-2024 Telephone encounter Note Prescription Refill [...] Weathers MA August 14, 2024 10:39 AM [facility] 08-14-2024 Miscellaneous Notes Prescription Refill Information The [...] 2024 10:39 AM documented in this encounter [facility] 08-08-2024 Nurse Note Called report to [facility]. Pickup scheduled for 3:30pm. [facility] 08-08-2024 [facility]. Wound Care consulted for Pressure Injury Prevention. Pt's Jeri score= 17 on 08/08 Pt's pressure points assessed. Pt stood independently for posterior assessment. Pt's Heels, Buttocks/coccyx, Back, Right elbow, Occiput and ears all intact. Cast in place to left upper extremity. Wells and healed area noted to coccyx. Wells and blanchable tissues noted to bilateral heels. [...] RN documented in this encounter [facility] 08-08-2024 History of Presen t illness Narrative Pt has been seen by palliative care during this hospital admission. Provider suggested [facility] sent to [facility], faxed to documented in this encounter [facility] 08-08-2024 Nurse Note Wound Care consulted for Pressure Injury Prevention. Pt's Jeri score= 17 on 08/08 Pt's pressure points assessed. Pt stood independently for posterior assessment. Pt's Heels, Buttocks/coccyx, Back, Right elbow, Occiput and ears all intact. Cast in place to left upper extremity. Wells and healed area noted to coccyx. Wells and blanchable tissues noted to bilateral heels. [...] any questions or concerns. Rosalina Cross RN [facility] 08-08-2024 Note Formatting of this n ote might be different from the original. Rounds this am DCP: [facility] Called to notify Karishma/dtr: [facility] has overturned the Denial and is approved to go to [facility] Transport arranged for 330pm. Tasked to [facility] to complete 7,000 Send AVS and Mar to facility Facility is updated RN and MD notified [facility] 08-08-2024 Note Formatting of this n ote might be different from the original. Rounds this am DCP: [facility] Called to notify Karishma/dtr: [facility] has overturned the Denial and is approved to go to [facility] Transport arranged for 330pm. Tasked to [employer] NUR[employer] to complete 7,000 Send AVS and Mar to facility Facility is updated RN and notified [facility] 08-08-2024 Miscellaneous Notes Rounds this am DCP: [facility] Called to notify Karishma/dtr: [facility] has overturned the Denial and is approved to go to [facility] Transport arranged for 330pm. Tasked to [facility] to complete 7,000 Send AVS and Mar to facility Facility is updated RN and MD notified Patient Choice Patient Name: GONZALO DELUCA Date of : 1955 All Providers Sent Referral [facility] Phone: [phone] Address: [address] [place] [address] Name: [facility] Phone: [phone] Address: [address] [place] [address] Name: [facility] Phone: [phone] Address: [address] [place] [id number] Name: [facility] Phone: [phone] Address: [address] [place] [address] MAR, Discharge med list transmitted and 7000 in HENs to [facility] via [facility] per [facility] request. Problem: Knowledge [...] I will remain free of falls 08/08/2024 0447 by Sadie Rodirguez RN Outcome: Not Progressing 08/08/2024 0316 by Sadie Rodriguez RN Outcome: Progressing Problem: Discharge Barriers Goal: My discharge needs are met 08/08/2024 0447 by Sadie Rodriguez RN Outcome: Not Progressing 08/08/2024 031 by Sadie Rodriguez RN Outcome: Not Progressing Problem: Problem Interventions Goal: Assess Nutritional Intake 08/08/2024 0447 by Sadie Rodriguez RN Outcome: [...] -Notified Dr. Beverly -Updated clinicals faxed to [phone] -If the appeal process is upheld, pt will have to go home with [facility]. -vending manager to follow and assist as needed. [...] denying SNF. Pt asked to go to [place]. She is in the process of trying to get to [facility] through her waiver services. She started this [...] Appeals number given to pt to call: [phone]. Appeals fax number: [phone]. Pt was calling as this CM was walking out of her room. vending manager to follow and assist as needed. Spoke with patients daughter Karishma, regarding dc plans, who states that they would like to ideally get patient into fpc and then get patient over to [facility] under Medicaid. This will require an insurance appeal for the fpc facility. Shared this discussion with the TCC [...] submit an appeal. The appeal number for [facility] is [phone] and fast appeal fax [phone] is not open on the weekend and this will need to be initiated on Tuesday. Discussed with patient and she wanted to discuss with her daughter prior to deciding to pursue appeal or discharge home with [facility]. She did state that her daughter was [...] discharge needs are met Outcome: Progressing Called [facility] and spoke with Xiao and angelina is requesting peer to peer to be completed by 08/06 at 12 noon central standard time. Number for peer to peer is [phone] option 5. Will need members name, and [...] Promote nutritional intake Outcome: Progressing Tasked weekend family caseworker to follow for pending auth to [facility]. 7000 will need to be completed at the time of discharge. vending manager to follow and assist as needed. Sent updated notes to [facility] via [employer] per [facility] request. Await review and response regarding ability to accept. TCC notified. Care Management Progress Note -Discharge plan is [facility] -Tasked DIRECTOR NURSING SERVICE insurance agents supervisor to start auth. -Tasked DIRECTOR NURSING SERVICE to send updated clinical notes to facility. -vending manager to follow for auth approval and [...] are met Outcome: Progressing Referral placed to [facility] Vinic[facility] Briggs [facility] per TCC request. Await review and response regarding ability to accept. TCC notified. Care Management Progress Note -Spoke with pt at bedside for SNF choices. -Pt would like referrals sent to [facility], [facility], [facility], and [facility]. -Tasked DIRECTOR NURSING SERVICE to send those referrals. -Will speak with pt again once facility responses are in for facility of choice. -vending manager to follow and assist as needed. Length of Stay (Days): 1 GMLOS: No GMLOS Documented -Spoke with pt and she has chosen [facility] as FOC. Informed facility. ADOD is [address] Bishop. Anticipate starting auth tomorrow. vending manager to follow and assist as needed. [...] case she decides before then on choices. -vending manager to follow and assist as needed. [...] My discharge needs are met Outcome: Progressing Head Piece Assembler following case for Discharge Needs. Images from the original note were not included. [facility] Palliative Care Transitions of Care Note Gonzalo Deluca : 1955 ADMIT DATE: 07/30/2024 DISCHARGE DATE: TBD PRIMARY CARE PHYSICIAN: HERMINIA CASE MD CODE STATUS: DNR-CCA DISCHARGE DIAGNOSES: Principal Problem: Adult failure to thrive HOSPITAL COURSE: Goals of care Gonzalo Deluca retains capacity for medical decision-making -legal surrogate decision maker is unknown, daughter listed in emergency contacts-->Karishma Delcua ( ) -Would encourage completion of HCPOA [...] short of breath when trying to eat. -Insurance Agents Supervisor would be helpful. -BMI 15.28 -Albumin-->3.0 -Monitor. [...] Skilled Rehab Facility FACILITY/HOME CARE AGENCY NAME: [facility] office to call patient. [...] read documented in this encounter [facility] 08-08-2024 Note Formatting of this n ote might be different from the original. Patient Choice Patient Name: GONZALO DELUCA Date of : 1955 All Providers Sent Referral Name: Vinicius Alvarez CPAN Member Phone: [phone] Address: [address] [place] [address] Name: [facility] Phone: [phone] Address: [address] [place] [address] Name: [facility] [facility] Phone: [phone] Address: [address] [place] [address] [facility] Phone: [phone] Address: [address] [place] [address] [facility] 08-08-2024 Note Formatting of this n ote might be different from the original. Patient Choice Patient Name: GONZALO DELUCA Date of : 1955 All Providers Sent Referral Name: Vinicius Alvarez CPAN Member Phone: [phone] Address: [address] [place] [address] Name: [facility] Phone: [phone] Address: [address] [place] [address] Name: [facility] Phone: [phone] Address: [address] [place] [address] Name: [facility] Phone: [phone] Address: [address] [place] [address] [facility] 08-08-2024 Note Formatting of this n ote might be different from the original. MAR, Discharge med list transmitted and 7000 in HENs to [facility] per TCC request. [facility] 08-08-2024 Note Formatting of this n ote might be different from the original. MAR, Discharge med list transmitted and 7000 in HENs to [facility] via [employer] per TCC request. [facility] 08-08-2024 Note [facility] 08-08-2024 Hospital course Narrative Images from the [...] status. Recent healthcare interactions include consultations with [facility], palliative care, pulmonology, orthopedic surgery, geriatrics, [...] respiratory failure and severe emphysema. Plan: - C[facility]TER BANANA ROOM evaluation: recommended regular solids with thin liquids, [...] Plus 07/31/24 1030 07/31/24 1031 Supplement:HS Snack; [place] Ensure Plus Until discontinued Question Answer Comment Frequency HS Snack Select supplement: [place] Ensure Plus 07/31/24 1030 07/30/24 2313 Adult diet Regular Diet effective now Question: Diet type Answer: Regular 07/30/242312 Activity: as tolerated Recommended Outpatient Tests: Disposition: [...] ill apperances, LABS: Recent Labs 08/06/24 0118 08/07/24 0138 08/08/24 0108 NA 141 141 141 K 3.8 3.7 3.9 CL 101 101 101 CO2 33* 33* 32* BUN 27* 28* 22 CREATININE 0.56* 0.59 0.63 GLUCOSE 93 124* 99 CALCIUM 8.9 9.3 8.6* Recent Labs 08/06/24 0119 08/07/24 0138 08/08/24 0108 WBC 7.8 8.7 12.6* RBC 3.47* [...] Your Medications These medications were sent to [facility]/pharmacy #[id number] [place] [address] [facility] [place] [address] PARoxetine 30 MG tablet You can get these medications from any pharmacy Bring a paper prescription for each of these medications morphine 15 MG tablet Information about where to get these medications is not yet available Ask your nurse or doctor about these medications albuterol (2.5 MG/3ML) 0.083% nebulizer solution folic acid 1 MG tablet QUEtiapine 50 MG tablet Recommended Follow-up: [facility] [address] [facility] [address] [facility] [address] Follow up Cognitive Evaluation Betsey Gresham MD [address] [facility] [address] Schedule an appointment as soon as possible for a visit in 3 week(s) Elyssa Tesfaye NP [address] [place] [phone] Go on 08/20/2024 Pulmonary hospital follow up at 10:30 AM Complexity of Follow up: [] Moderate Complexity: follow up within 7-14 calendar days (12283) [x] Severe Complexity: follow up within 7 calendar days (580[address]) Follow up Testing, Pending results or Referrals [...] Rena Beverly MD Division of Hospitalist Medicine [facility] [employer] 08/08/2024, 12:48 PM [1] Past Medical History: [...] deficiency documented in this encounter [facility] 08-08-2024 History of Presen t illness Narrative Patient chart reviewed and being rounded on. Note to follow. 6:29 AM 08/08/24 Rena Beverly MD Division of Hospitalist Medicine [facility] [employer] Images from the original note were not included. [facility], Pulmonary Medicine [address] [place] [address] Patient - Gonzalo Deluca, Age - 68 y.o. - 1955 Room Number - B2-254/B2-254 B Consulting - Rena Beverly MD Primary Care Physician - HERMINIA CASE MD [facility] # - [id number] Date of Admission - 07/30/2024 4:40 PM [...] She is not currently following with a ultrasound specialist. She is on Breo ellipta, Spiriva, and [...] neoplasm of exocervix (HCC) Recurrent major depression ([facility]) Pulmonary nodule S/P hysterectomy Sciatica Shortness of [...] status. Recent healthcare interactions include consultations with [facility] [place] [facility], palliative care, pulmonology, orthopedic surgery, geriatrics, [...] appeal process to try to get into fpc facility. She denies any fever cough or [...] History: Medical History[1] LABS: CBC: Recent Labs 08/05/24 0214 08/06/24 0119 08/07/24 0138 WBC 9.9 7.8 8.7 RBC 3.80 3.47* 3.38* HGB 12.0 10.7* 10.5* HCT 38.5 35.3 33.8* MCV 101.3* 101.7* 100.0* RDW 13.9 14.0 14.3 PLT 221 166 189 BMP: Recent Labs 08/05/24 0214 08/06/24 0118 08/07/24 0138 NA 141 141 141 K 4.3 3.8 [...] of failure to thrive and debility - CUTTER BANANA ROOM evaluation: recommended regular solids with thin liquids, sitting upright, slow rate of intake, and small bites - prison's has been denied - will need appeal. [...] signs, labs obtained, awaiting for appeal for fpc facility, if that gets denied will need [...] Information Primary Emergency Contact: Karishma Deluca Address: [address] [place] [address] [place] [address] [facility] Mobile Relation: Daughter Secondary Emergency Contact: Jace Deluca Mobile Relation: Drashan Beverly MD Division of Hospitalist Medicine [facility] [1] Past Medical History: Diagnosis Date Abnormal [...] major depression (HCC) Sciatica Thoracic compression fracture ([facility]) Vitamin D deficiency [2] acetaminophen, 650 mg, [...] (interosseous) Fluid Accumulation: No significant fluid accumulation Personal Investment Adviser Strength: Nutrition Assessment: per MD-BRIEF HOSPITAL COURSE: [...] status. Recent healthcare interactions include consultations with [facility] [place] [facility], palliative care, pulmonology, orthopedic surgery, geriatrics, [...] 5.7 oz) % Weight Change (Calculated): -27.2 [place] Body Weight (lbs) (Calculated): 120 lbs [place] Body Weight (Kg) (Calculated): 55 kg % [place] Body Weight (Calculated): 74.2 % BMI (kg/m2) [...] Oral Nutrition Supplement Phillip Bradshaw RD Contact: *[phone] or secure chat [facility] Geriatric Medicine Inpatient Consult Service Admission [...] deficits. --Recommend outpatient follow up at [facility] for more in depth [...] --QTc= 439 ms --Continue scheduled melatonin at HS --08/06 : She is not delirious Follow-up: [...] (L) 07/30/2024 Lab Results Component Value Date [id number] 639 07/30/2024 Lab Results Component Value Date VITD25 30 09/21/2023 [1] Current Facility-Administered Medications: acetaminophen (Tylenol) tablet 650 mg, 650 mg, Oral, q6h PRN OR acetaminophen (Tylenol) suppository 650 mg, 650 mg, Rectal, q6h PRN, Lauren Serna MD acetaminophen (Tylenol) tablet 650 mg, 650 mg, Oral, BID, Saad Telles, 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 - TONG SETTER, 650 mg at 08/06/24 0841 albuterol (2.5 [...] BID, Lauren Serna MD, 15 mg at 08/06/2442 calcitonin (Miacalcin) injection 50 Units, 50 Units, IntraMUSCular, Daily, Lauren Serna MD, 50 Units at 08/06/2439 cefepime (Maxipime) 2,000 mg in sodium chloride 0.9 % 50 mL IVPB Mini-Bag Plus, 2,000 mg, IntraVENous, q8h, Dejuan Bishop MD, Last Rate: 12.5 mL/hr at 08/06/24 0840, 2,000 mg at 08/06/2440 cetirizine (ZyrTEC) tablet 5 mg, 5 mg, Oral, Daily, Dejuan Bishop MD, 5 mg at 08/06/24841 enoxaparin (Lovenox) syringe 30 mg, 30 mg, SubCUTAneous, Daily, Lauren Serna MD, 30 mg at 08/06/2440 fluticasone (Flonase) nasal spray 2 spray, 2 [...] BID, Lauren Serna MD, 2 puff at 08/06/2439 montelukast (Singulair) tablet 10 mg, 10 mg, Oral, Nightly, Lauren Serna MD, 10 mg at 08/05/242043 morphine (MSIR) tablet 15 mg, 15 mg, Oral, q4h PRN, Imelda Bernard, 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 - TONG SETTER, 15 mg at 08/06/2456 naloxone (Narcan) injection 0.4 mg, 0.4 mg, IntraVENous, q5 min PRN, Lauren Serna MD ondansetron ODT (Zofran-ODT) disintegrating tablet 4 mg, 4 mg, Oral, q8h PRN OR ondansetron (Zofran) injection 4 mg, 4 mg, IntraVENous, q6h PRN, Lauren Serna MD PARoxetine (Paxil) tablet 30 mg, 30 mg, Oral, q AM, DB Merrill CNP, 30 mg at 08/06/24 0841 polyethylene glycol [...] PRN, DB Merrill CNP, 50 mg at 08/05/24 2048 sodium chloride ([place]) 0.65 % nasal spray 2 spray, 2 spray, Each Nostril, q2h PRN, Dejuan Bishop MD, 2 spray at 08/02/24 1621 tiotropium (Spiriva Respimat) 2.5 MCG/ACT inhaler 2 puff, 2 puff, Inhalation, Daily, Lauren Serna MD, 2 puff at 08/06/24 0839 Images from the original note were not included. PHYSICAL THERAPY [facility] Treatment Note Name/MRN: Gonzalo Deluca ([id number]) Date of : 1955 Age: 68 y.o. Room/Bed: [facility]254/[facility] B Visit #: 5 out of 7 Discharge Recommendation: Halfway Facility Other: TBD at next level of [...] Stairs) : 17 JH-HLM JH-HLM Score: Walked 25 ft or [...] from the original note were not included. [facility], Pulmonary Medicine [address] [place] [address] Patient - Gonzalo Deluca, Age - 68 y.o. - 1955 Room Number - B2-254/B2-254 B Consulting - Rena Beverly MD Primary Care Physician - HERMINIA CASE MD [facility] # - [id number] Date of Admission - 07/30/2024 4:40 PM [...] She is not currently following with a ultrasound specialist. She is on Breo ellipta, Spiriva, and [...] determine severity of disease. Last PFT from 2015 Prednisone taper as ordered Josué Mcgraw Counseled [...] prosthetic devices, implants and grafts, initial encounter ([facility]) Chronic pain COPD (chronic obstructive pulmonary disease) ([facility]) DDD (degenerative disc disease), cervical Leukocytosis Malignant neoplasm of exocervix ([facility]) Recurrent major depression ([facility]) Pulmonary nodule S/P hysterectomy Sciatica Shortness of breath Supplemental oxygen dependent PNA (pneumonia) H/O: CVA (cerebrovascular accident) Former smoker Nondisplaced fracture of neck of left femur ([facility]) Lumbar compression fracture, closed, initial encounter ([facility]) Severe malnutrition (CMS/HCC) ([facility]) Falls frequently Unintentional weight loss Debility PFO (patent foramen ovale) Adult failure to thrive Anxiety and depression Cognitive deficits At risk for delirium Images from the original note were not included. OCCUPATIONAL THERAPY [facility] Treatment Note Name/MRN: Gonzalo Deluca ([id number]) Date of : 1955 Age: 68 y.o. Room/Bed: [facility] B Visit #: 4 out of 6 [...] status. Recent healthcare interactions include consultations with [place] [facility], palliative care, pulmonology, orthopedic surgery, geriatrics, [...] History[1] LABS: CBC: Recent Labs 08/04/24 0043 08/05/244 08/06/24 0119 WBC 8.2 9.9 7.8 RBC [...] of failure to thrive and debility - CUTTER BANANA ROOM evaluation: recommended regular solids with thin liquids, sitting upright, slow rate of intake, and small bites - prison's has been denied - will need appeal. [...] to wait on appeal for SNF placement, heverugther cannot manage helping patient at home and [...] Information Primary Emergency Contact: Karishma Deluca Address: [address] [place] [address] [place] [address] [facility] Mobile Relation: Daughter Secondary Emergency Contact: Jace Deluca Mobile Relation: Darshan Beverly MD Division of Hospitalist Medicine [facility] [1] Past Medical History: Diagnosis Date Abnormal [...] original note were not included. PHYSICAL THERAPY [facility] Treatment Note Name/MRN: Gonzalo Deluca ([id number]) Date of : 1955 Age: 68 y.o. Room/Bed: -254/[facility] B Visit #: 4 out of 7 Discharge Recommendation: Halfway Facility Other: TBD at next level of [...] Stairs) : 17 JH-HLM -HLM Score: Walked 10 steps or more (i.e. [...] original note were not included. OCCUPATIONAL THERAPY [facility] Treatment Note Name/MRN: Gonzalo Deluca ([id number]) Date of : 1955 Age: 68 y.o. Room/Bed: B2-254/B2-254 B Visit #: 3 out of 6 Discharge Recommendation: Halfway Facility Equipment Needed: No Assessment Pt tolerated [...] mobility with use of bed features at [facility] I. Pt able to maintain LUE NWB [...] Treatment Minutes: 20 Minutes (1 THER ACT) VAN Diana/Arsenio Cosigned by Roopa More OT at 08/06/2024 7:53 AM EDT Images from the original note were not included. [facility], Pulmonary Medicine [address] [place] [address] Patient - Gonzalo Deluca, Age - 68 y.o. 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 Recent healthcare interactions include consultations with [place] [facility], palliative care, pulmonology, orthopedic surgery, geriatrics, [...] of failure to thrive and debility - CUTTER BANANA ROOM evaluation: recommended regular solids with thin liquids, sitting upright, slow rate of intake, and small bites - Consider fpc facility placement for comprehensive care - Geriatrics [...] Information Primary Emergency Contact: Karishma Deluca Address: [address] [place], [place] [id number] [facility] Mobile Relation: Daughter Secondary Emergency Contact: Jace Deluca Mobile Relation: Darshan Rena Tuyet Beverly MD Division of Hospitalist Medicine [facility] [1] Past Medical History: Diagnosis Date Abnormal [...] from the original note were not included. [facility], Pulmonary Medicine [address] [place] [address] Patient - Gonzalo Deluca, Age - 68 y.o. 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) Chronic pain COPD (chronic obstructive pulmonary disease) ([facility]) DDD (degenerative disc disease), cervical Leukocytosis Malignant neoplasm of exocervix ([facility]) Recurrent major depression ([facility]) Pulmonary nodule S/P hysterectomy Sciatica Shortness of [...] status. Recent healthcare interactions include consultations with [facility], palliative care, pulmonology, orthopedic surgery, geriatrics, and [...] 13.8 PLT 164 BMP: Recent Labs 08/04/24 004 NA 142 K 4.2 CL 104 CO2 [...] of failure to thrive and debility - CUTTER BANANA ROOM evaluation: recommended regular solids with thin liquids, sitting upright, slow rate of intake, and small bites - Consider fpc facility placement for comprehensive care - Geriatrics [...] Information Primary Emergency Contact: Karishma Deluca Address: [address] [place] [address] [place] [address] [facility] Mobile Relation: Daughter Secondary Emergency Contact: Jace Deluca Mobile Relation: Son Rena Benz MD [facility] Division of Hospitalist Medicine [facility] [1] Past Medical History: Diagnosis Date Abnormal [...] original note were not included. PHYSICAL THERAPY [facility] Name/MRN: Gonzalo Deluca ([id number]) Date: 08/04/2024 Chart review completed this date. PT attempted. Pt supine. Receiving breathing treatments during first attempt second attempt patient requesting BROADCASTING EQUIPMENT MECHANIC return after eating breakfast. Pt tray had [...] Jeri is 21 -already being followed by RD. [facility] Respiratory Care Department Progress Note As part [...] (interosseous) Fluid Accumulation: No significant fluid accumulation Personal Investment Adviser Strength: Nutrition Assessment: 68 year old woman who remains admitted to [facility] at direction of PCP with FTT- [...] 122.35# 09/08/23) % Weight Change (Calculated): -24.3 [place] Body Weight (lbs) (Calculated): 120 lbs [place] Body Weight (Kg) (Calculated): 55 kg % [place] Body Weight (Calculated): 77.2 % BMI (kg/m2) [...] current diet, Continue Oral Nutrition Supplement Celeste Garcia RDN, LDN, Contact: *[phone] [facility] Geriatric Medicine Inpatient Consult Service Admission [...] for shortness of breath --Family looking into LULY dasilva --08/03: Discharge plan is SNF - [facility] when medically stable Severe Malnutrition --continue [...] note, this was the dose recommended by [facility] psychiatry when she was hospitalized in summer [...] deficits. --Recommend [facility] [...] note Reviewed today's case management notes Reviewed MAR: has not used prn flexeril She has [...] (L) 07/30/2024 Lab Results Component Value Date [id number] 639 07/30/2024 Lab Results Component Value Date VITD25 30 09/21/2023 [1] Current Facility-Administered Medications: acetaminophen (Tylenol) tablet 650 mg, 650 mg, Oral, q6h PRN OR acetaminophen (Tylenol) suppository 650 mg, 650 mg, Rectal, q6h PRN, Lauren Serna MD acetaminophen (Tylenol) tablet 650 mg, 650 mg, Oral, BID, Saad Ezzie, 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 - TONG SETTER, 650 mg at 08/03/24 09 albuterol (2.5 MG/3ML) 0.083% nebulizer solution 2.5 mg, 2.5 mg, Nebulization, q4h PRN, Lauren Serna MD, 2.5 mg at 08/01/242055 aspirin EC tablet 81 mg, 81 mg, Oral, Daily, Lauren Serna MD, 81 mg at 08/02/24 08 buPROPion XL (Wellbutrin XL) 24 hr tablet 150 mg, 150 mg, Oral, Daily, Lauren Serna MD, 150 mg at 08/03/24909 busPIRone (Buspar) tablet 15 mg, 15 mg, Oral, BID, Lauren Serna MD, 15 mg at 08/03/24909 calcitonin (Miacalcin) injection 50 Units, 50 Units, IntraMUSCular, Daily, Lauren Serna MD, 50 Units at 08/03/2415 cefepime (Maxipime) 2,000 mg in sodium chloride 0.9 % 50 mL IVPB Mini-Bag Plus, 2,000 mg, IntraVENous, q12h, Dejuan Bishop MD, Last Rate: 12.5 mL/hr at 08/03/24 0919, 2,000 mg at 08/03/24 09 cetirizine (ZyrTEC) tablet 5 mg, 5 mg, Oral, Daily, Dejuan Bishop MD, 5 mg at 08/03/24 09 cyclobenzaprine (Flexeril) tablet 5 mg, 5 mg, [...] 15 mg, Oral, q4h PRN, Imelda Bernard, 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 - TONG SETTER, 15 mg at 08/03/24908 naloxone (Narcan) injection 0.4 mg, 0.4 mg, IntraVENous, q5 min PRN, Lauren Serna MD ondansetron ODT (Zofran-ODT) disintegrating tablet 4 mg, 4 mg, Oral, q8h PRN OR ondansetron (Zofran) injection 4 mg, 4 mg, IntraVENous, q6h PRN, Lauren Serna MD PARoxetine (Paxil) tablet 30 mg, 30 mg, Oral, q AM, Saad Telles, 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 - TONG SETTER, 30 mg at 08/03/24909 polyethylene glycol (PEG) 3350 (Miralax) packet 17 g, 17 g, Oral, Daily PRN, Lauren Serna MD predniSONE (Deltasone) tablet 30 mg, 30 mg, Oral, Daily, 30 mg at 08/03/24 09 FOLLOWED BY [START ON 08/05/2024] predniSONE (Deltasone) tablet 20 mg, 20 mg, Oral, Daily FOLLOWED BY [START ON 08/07/2024] predniSONE (Deltasone) tablet 10 mg, 10 mg, Oral, Daily, Leann Cross, 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 - TONG SETTER QUEtiapine (SEROquel) tablet 50 mg, 50 mg, Oral, Nightly PRN, Saad Telles, 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 - TONG SETTER, 50 mg at 08/02/242047 sodium chloride ([place]) 0.65 % nasal spray 2 spray, 2 spray, Each Nostril, q2h PRN, Dejuan Bishop MD, 2 spray at 08/02/24 1621 tiotropium (Spiriva Respimat) 2.5 MCG/ACT inhaler 2 puff, 2 puff, Inhalation, Daily, Lauren Serna MD, 2 puff at 08/03/24 0915 Images from the original note were not included. PHYSICAL THERAPY [facility] Treatment Note Name/MRN: Gonzalo Deluca ([id number]) Date of : 1955 Age: 68 y.o. Room[facility]Bed: [facility] B Visit #: 3 out of 7 visits Discharge Recommendation: [facility]way Facility Other: TBD at next level of [...] Stairs) : 17 JH-HLM JH-HLM Score: Walked 25 ft or [...] original note were not included. OCCUPATIONAL THERAPY [facility] Treatment Note Name/MRN: Gonzalo Deluca ([id number]) Date of : 1955 Age: 68 y.o. Room/Bed: -254/[facility]254 B Visit #: 2 out of 6 visits Discharge Recommendation: Halfway Facility Equipment Needed: No Prior Level of Function Prior Level of ADL Function: Independent Prior Level of Mobility: Independent; Device: Straight Cane Prior Level of Transfers: Independent Assessment Pt tolerated session fair, continues to be limited by fatigue and SOB. Pt completed bed mobility at Mod I. Pt completed x3 STS and LE dressing/bathing at [facility]. Pt completed seated UE bathing at Mod [...] and managed over hips in standing at [facility]. Pt doffed/donned austin socks while seated EOB [...] Pt completed standing LE bathing (periarea) at [facility]. Pt demo no overt LoB, generally [...] x3 STS from EOB without device at [facility]. Pt ed on proper tech to maintain [...] status. Recent healthcare interactions include consultations with [place] [facility], palliative care, pulmonology, orthopedic surgery, geriatrics, [...] 08/03/2024 0906 Last data filed at 08/02/2024 2159 Gross per 24 hour Intake 200 ml [...] of failure to thrive and debility - [facility] evaluation: recommended regular solids with thin liquids, sitting upright, slow rate of intake, and small bites - Consider fpc facility placement for comprehensive care - Geriatrics [...] Information Primary Emergency Contact: Karishma Deluca [address]: [address] [place] [address] [place] [address] [facility] Mobile Relation: Daughter Secondary Emergency Contact: Jace Deluca Mobile Relation: Son Rena Tuyet Beverly MD Division of Hospitalist Medicine [facility] [1] Past Medical History: Diagnosis Date Abnormal [...] from the original note were not included. [facility], Pulmonary Medicine [address] [place], [place] [id number] Patient - Gonzalo Deluca, Age - 68 y.o. 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) Chronic back pain COPD (chronic obstructive pulmonary disease) ([facility]) DDD (degenerative disc disease), cervical Leukocytosis Malignant neoplasm of exocervix (HCC) Recurrent major depression ([facility]) Pulmonary nodule S/P hysterectomy Sciatica Shortness of breath Supplemental oxygen dependent PNA (pneumonia) H/O: CVA (cerebrovascular accident) Former smoker Nondisplaced fracture of neck of left femur (HCC) Lumbar compression fracture, closed, initial encounter ([facility]) Severe malnutrition (CMS/HCC) ([facility]) Falls frequently Unintentional weight loss Debility PFO [...] short of breath when trying to eat. -Insurance Agents Supervisor would be helpful. -BMI 15.28 -Albumin-->3.0 -Monitor. [...] follow for goals of care. -CT CAP -13-->reviewed, severe emphysema. -Pulmonology following. -monitor. Continue to [...] Improve or Maintain Function/Quality of Life, Preserve [place]/Autonomy/Control, and Remain at Home Advanced Directives: DNR-CCA, DNI Functional Assessment: PPS 70% amb reduced; can't do normal work/some disease; full self care; normal or reduced intake; full LOC Prognosis: depends upon goals of care Spiritual Assessment: No spiritual distress identified Bereavement and Grief: To Be Determined PDMP/OARRS Reviewed: Yes-reviewed ROS: See palliative care ROS/ESAS below; All other systems were reviewed and are negative. Clarence Symptom Assessment Score Clarence Score Pain Score (if non-verbal, add .FLACC [...] original note were not included. PHYSICAL THERAPY [facility] Treatment Note Name/MRN: Gonzalo Deluca ([id number]) Date of : 1955 Age: 68 y.o. Room/Bed: B2-254/B2-254 B Visit #: 2 out of 7 visits Discharge Recommendation: Continue to assess pending progress, [facility]way Facility Other: TBD at next level of care, pt owns a cane Prior Level of Function Prior Level of ADL Function: Independent Prior Level of Mobility: Independent; Device: Straight Cane Prior Level of Transfers: Independent Assessment Pt continues to make good overall progress towards established therapy goals this date. Remains limited by SOB and rapid onset of fatigue. Pt completed bed mobility at [facility], STS transfers with IV pole to assist [...] Raw Score (No Stairs) : 15 JH-HLM -[facility] Score: Walked 25 ft or more [...] 10 Minutes (gait x1) Rayo Joseph PT [facility] Geriatric Medicine Inpatient Consult Service Admission [...] deficits. --Recommend outpatient follow up at [facility]) for more in depth [...] fracture, Vitamin D deficiency, anxiety, presented to [facility] on 07/30/24 with complaints of weight [...] (L) 07/30/2024 Lab Results Component Value Date [id number] 639 07/30/2024 Lab Results Component Value Date [...] 150 mg, 150 mg, Oral, Daily, Lauren Seran MD, 150 mg at 08/02/24 0803 busPIRone [...] Lauren Serna MD, 30 mg at 08/02/24 08 fluticasone (Flonase) nasal spray 2 spray, 2 [...] Lauren Serna MD, 2 puff at 08/02/24 08 montelukast (Singulair) tablet 10 mg, 10 mg, Oral, Nightly, Lauren Serna MD, 10 mg at 08/01/242032 morphine (MSIR) tablet 15 mg, 15 mg, Oral, q4h PRN, Imelda Bernard, DB - TONG SETTER, 15 mg at 08/02/24 1156 naloxone (Narcan) injection 0.4 mg, 0.4 mg, IntraVENous, q5 min PRN, Lauren Serna MD ondansetron ODT (Zofran-ODT) disintegrating tablet 4 mg, 4 mg, Oral, q8h PRN OR ondansetron (Zofran) injection 4 mg, 4 mg, IntraVENous, q6h PRN, Lauren Serna MD PARoxetine (Paxil) tablet 30 mg, 30 mg, Oral, q AM, Saad Telles APRN - TONG SETTER, 30 mg at 08/02/24 0936 polyethylene glycol [...] PRN, DB Merrill CNP, 50 mg at 08/01/242032 sodium chloride ([place]) 0.65 % nasal spray 2 spray, 2 spray, Each Nostril, q2h PRN, Dejuan Bishop MD tiotropium (Spiriva Respimat) 2.5 MCG/ACT inhaler 2 puff, 2 puff, Inhalation, Daily, Lauren Serna MD, 2 puff at 08/02/24 0806 Hospitalist Progress Note 08/02/2024 [phone]: Please page me ([phone]) for patient care issues. [phone]: Please page [facility] night Hospitalist for any issues. Subjective: Admit Date: 07/30/2024 PCP: HERMINIA CASE MD Room#: B2-254/B2-254 B Interval History: Patient is sitting on the bed, still on 5 L nasal cannula saturating well. No signs of respiratory distress noticed Denies any cough or sputum production pain No other significant overnight issues. Adult diet Regular @[id number]@ 24HR INTAKE/OUTPUT: No intake or output data [...] prophylaxis: Lovenox daily. Disposition: PT OT recommending fpc facility. Possible discharge in next 1 to 2 days. Pending Long arm cast placement -am labs, replace lytes prn -increase activity -DVT prophylaxis: [] Lovenox [] Heparin [] SCDs [x] Encourage ambulation [] Already on Anticoagulation Advance Directive: DNR-CCA Discharge planning: TBHetal Bishop MD Division of Hospitalist Medicine Inpatient Medical Services/[facility]: [phone] Acute hypoxic respiratory failure [1] Past Medical [...] original note were not included. OCCUPATIONAL THERAPY [facility] Treatment Note Name/MRN: Gonzalo Deluca ([id number]) Date of : 1955 Age: 68 y.o. Room/Bed: [facility] B Visit #: 1 out of 6 visits Discharge Recommendation: Halfway Facility, Continue to assess pending progress Equipment [...] from the original note were not included. [facility], Pulmonary Medicine [address] [place] [id number] Patient - Gonzalo Deluca, Age - 68 y.o. - 1955 Room Number - B2-254/B2-254 B Consulting - Dejuan Bishop MD Primary Care Physician - HERMINIA CASE MD Date of Admission - 07/30/2024 4:40 PM [...] hematemesis melena hematuria Apparently not seeing any ultrasound specialist recently Was on Dulera Spiriva and rescue inhaler compliant with the medication Not on NIV No PFT available in [facility] All other systems reviewed Objective Vitals: BP [...] data in the 24 hours ending 08/02/24 07 Exam General appearance: Sitting by the edge [...] prosthetic devices, implants and grafts, initial encounter ([facility]) Chronic back pain COPD (chronic obstructive pulmonary disease) (HCC) DDD (degenerative disc disease), cervical Leukocytosis Malignant neoplasm of exocervix (HCC) Recurrent major depression (HCC) Pulmonary nodule S/P hysterectomy Sciatica Shortness of breath Supplemental oxygen dependent PNA (pneumonia) H/O: CVA (cerebrovascular accident) Former smoker Nondisplaced fracture of neck of left femur ([facility]) Lumbar compression fracture, closed, initial encounter ([facility]) Severe malnutrition (CMS/HCC) ([facility]) Falls frequently Unintentional weight loss Debility PFO (patent foramen ovale) Adult failure to thrive Hospitalist Progress Note 08/01/2024 [phone]: Please page nm ([phone]) for patient care issues. [phone]: Please page [facility] night Hospitalist for any issues. Subjective: Admit Date: 07/30/2024 PCP: HERMINIA CASE MD Room#: B2-254/B2-254 B Interval History: Patient is sitting on the chair, denies any chest pain shortness of breath or palpitations Denies any upper extremity pain. No other significant overnight issues. Adult diet Regular @[id number]@ 24HR INTAKE/OUTPUT: Intake/Output Summary (Last 24 hours) at 08/01/2024 1750 Last data filed at 07/31/2024 1759 Gross [...] prophylaxis: Lovenox daily. Disposition: PT OT recommending fpc facility. Possible discharge in next 1 to 2 days. Pending Long arm cast placement -am labs, replace lytes prn -increase activity -DVT prophylaxis: [] Lovenox [] Heparin [] SCDs [x] Encourage ambulation [] Already on Anticoagulation Advance Directive: DNR-CCA Discharge planning: JAKI Bishop MD Division of Hospitalist Medicine Inpatient Medical Services/[facility]: [phone] [1] Past Medical History: Diagnosis Date Abnormal [...] original note were not included. PHYSICAL THERAPY [facility] Treatment Note Name/MRN: Gonzalo Deluca ([id number]) Date of : 1955 Age: 68 y.o. Room/Bed: [facility] B Visit #: 1 out of 7 visits Discharge Recommendation: Continue to assess pending progress, Halfway Facility Other: TBD at next level of [...] Minutes: 8 Minutes (1 gait) Lucía Christianson PTA Cosigned by Jennifer Esparza PT at 08/01/2024 4:08 PM EDT [facility] Geriatric Medicine Inpatient Consult Service Admission [...] fracture, Vitamin D deficiency, anxiety, presented to [facility] on 07/30/24 with complaints of weight [...] (L) 07/30/2024 Lab Results Component Value Date [id number] 639 07/30/2024 Lab Results Component Value Date VITD25 30 09/21/2023 Reviewed: allergies, previous encounters, imaging, active problem lists, medications, and labs [1] Current Facility-Administered Medications: acetaminophen (Tylenol) tablet 650 mg, 650 mg, Oral, q6h PRN OR acetaminophen (Tylenol) suppository 650 mg, 650 mg, Rectal, q6h PRN, Lauren Serna MD acetaminophen (Tylenol) tablet 650 mg, 650 mg, Oral, BID, Saad Telles APRN - TONG SETTER, 650 mg at 08/01/24 08 albuterol (2.5 MG/3ML) 0.083% nebulizer solution 2.5 mg, 2.5 mg, Nebulization, q4h PRN, Lauren Serna MD, 2.5 mg at 07/31/242008 aspirin EC tablet 81 mg, 81 mg, Oral, Daily, Lauren Serna MD, 81 mg at 08/01/24 08 buPROPion XL (Wellbutrin XL) 24 hr tablet 150 mg, 150 mg, Oral, Daily, Lauren Serna MD, 150 mg at 08/01/24839 busPIRone (Buspar) tablet 15 mg, 15 mg, Oral, BID, Lauren Serna MD, 15 mg at 08/01/24839 calcitonin (Miacalcin) injection 50 Units, 50 Units, IntraMUSCular, Daily, Lauren Serna MD cyclobenzaprine (Flexeril) tablet 5 mg, 5 mg, Oral, TID PRN, Lauren Serna MD enoxaparin (Lovenox) syringe 30 mg, 30 mg, SubCUTAneous, Daily, Lauren Serna MD, 30 mg at 08/01/24840 fluticasone (Flonase) nasal spray 2 spray, 2 spray, Each Nostril, Daily, Lauren Serna MD, 2 spray at 07/31/24821 melatonin tablet 3 mg, 3 mg, Oral, Nightly, Lauren Serna MD, 3 mg at 07/31/242054 methylPREDNISolone sod suc (PF) (SOLU-Medrol) 40 MG injection 20 mg, 20 mg, IntraVENous, q12h, Lauren Serna MD, 20 mg at 08/01/24617 mirtazapine (Remeron) tablet 15 mg, 15 mg, Oral, Nightly, Lauren Serna MD, 15 mg at 07/31/242054 mometasone-formoterol (Dulera 200) 200-5 MCG/ACT inhaler 2 puff, 2 puff, Inhalation, BID, Lauren Senra MD, 2 puff at 08/01/24 0848 montelukast (Singulair) tablet 10 mg, 10 mg, Oral, Nightly, Lauren Serna MD, 10 mg at 07/31/242054 morphine (MSIR) tablet 7.5 mg, 7.5 mg, Oral, q4h PRN, DB Lo CNP, 7.5 mg at 08/01/24 0840 naloxone (Narcan) injection 0.4 mg, 0.4 mg, [...] Daily, Lauren Serna MD, 2 puff at 08/01/2448 Images from the original note were not included. Speech-Language Pathology SPEECH LANGUAGE PATHOLOGY [facility] Dysphagia Treatment Note Patient Name: Gonzalo Deluca Evaluation Date: 08/01/2024 Date of : 1955 Admission Date: 07/30/2024 4:40 PM Age: 68 y.o. Room/Bed: [facility]254/B2-254 B Subjective Patient alert and cooperative. Seen [...] Plus 07/31/24 1030 07/31/24 1031 Supplement:HS Snack; [place] Ensure Plus Until discontinued Question Answer Comment Frequency HS Snack Select supplement: [place] Ensure Plus 07/31/24 1030 07/30/24 2313 Adult [...] bites/sips Patient has achieved all acute care [facility] RO[facility] goals. 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 -Insurance Agents Supervisor would be helpful. -BMI 15.28 -Albumin-->3.0 -Monitor. Chronic respiratory failure Dyspnea Severe emphysema -3L baseline. Worsening SOB as of late. -Chronically on percocet, but does not endorse this helping with shortness of breath. -Increase MSIR to 15 mg Q4 hour PRN severe pain/shortness of breath. Does not appear that 7.5 mg dose was effective. -PFT last done in 2015-->FEV1/FVC reduced, [...] emphysema. -Pulmonology consulted, await recs. Discussed with REHAB SERVICES AIDE Leann this AM. She will need follow [...] Improve or Maintain Function/Quality of Life, Preserve [place]/Autonomy/Control, and Remain at Home Advanced Directives: DNR Functional Assessment: PPS 70% amb reduced; can't do normal work/some disease; full self care; normal or reduced intake; full LOC Prognosis: depends upon goals of care Spiritual Assessment: No spiritual distress identified Bereavement and Grief: To Be Determined PDMP/OARRS Reviewed: Yes-reviewed ROS: See palliative care ROS/ESAS below; All other systems were reviewed and are negative. Clarence Symptom Assessment Score Clarence Score Pain Score (if non-verbal, add .FLACC [...] GOC at this time DB Aggarwal CNP H: [...] PLT 225 07/30/2024 Hospitalist Progress Note 07/31/2024 [phone]: Please page me ([phone]) for patient care issues. [phone]: Please page [facility] night Hospitalist for any issues. Subjective: Admit Date: 07/30/2024 PCP: HERMINIA CASE MD Room#: B2-254/B2-254 B Interval History: Patient is sitting on the bed, denies any chest pain or shortness of breath. Denies any abdominal pain nausea or vomitings No other significant overnight issues. Adult diet Regular @[id number]@ 24HR INTAKE/OUTPUT: Intake/Output Summary (Last 24 hours) [...] prophylaxis: Lovenox daily. Disposition: PT OT recommending fpc facility. Possible discharge in next 1 to 2 days. Pending Long arm cast placement -am labs, replace lytes prn -increase activity -DVT prophylaxis: [] Lovenox [] Heparin [] SCDs [x] Encourage ambulation [] Already on Anticoagulation Advance Directive: DNR-CCA Discharge planning: TBD Dejuan Bishop MD Division of Hospitalist Medicine Inpatient Medical Services/[facility]: [phone] [1] Past Medical History: Diagnosis Date Abnormal [...] not included. Speech-Language Pathology SPEECH LANGUAGE PATHOLOGY [facility] SPEECH THERAPY DIET RECOMMENDATIONS Diet: Regular solids (SOFT CHOICES as NEEDED)and Thin liquids Medications: as tolerated Precautions: - Upright positioning for all PO intake - Slow rate of intake - Small bites/sips Images from the original note were not included. PHYSICAL THERAPY [facility] Initial Evaluation Name/MRN: Gonzalo Deluca ([id number]) Evaluation Date: 07/31/2024 Date of : 1955 Admission Date: 07/30/2024 4:40 PM Age: 68 y.o. Room/Bed: [facility]254/[facility]254 B Discharge Recommendation: Continue to assess pending progress, Halfway Facility Other: TBD at next level of [...] thrive. Pt also c/o she fell in feb, she had left elbow pain, and her [...] Problem List Diagnosis Date Noted Severe malnutrition ([facility]) ([facility]) 07/31/2024 Adult failure to thrive 07/30/2024 Falls frequently 09/20/2023 Unintentional weight loss 09/20/2023 Debility 09/20/2023 PFO (patent foramen ovale) 09/20/2023 Lumbar compression fracture, closed, initial encounter ([facility]) 02/13/2023 Nondisplaced fracture of neck of left femur ([facility]) 11/06/2022 Other specified complication of vascular prosthetic devices, implants and grafts, initial encounter ([facility]) 08/06/2021 Poor venous access 12/19/2019 H/O: CVA (cerebrovascular accident) 12/14/2019 Malignant neoplasm of exocervix ([facility]) 11/07/2019 S/P hysterectomy 11/07/2019 PNA (pneumonia) 08/02/2019 Leukocytosis 04/13/2018 Shortness of breath 04/13/2018 DDD (degenerative disc disease), cervical 04/12/2018 Recurrent major depression ([facility]) 04/12/2018 Chronic back pain 04/10/2017 COPD (chronic obstructive pulmonary disease) ([facility]) 04/10/2017 Pulmonary nodule 04/10/2017 Sciatica 04/10/2017 Supplemental [...] Responsibilities: Independent Receives Help From: Family Active Architectural Engineering Teacher: N/A Prior Level of Function Prior Level [...] Raw Score (No Stairs) : 15 JH-HLM -[facility] Score: Walked 10 steps or more [...] of Care supervision is transferred to a [facility] Therapy Services Physical Therapist. Goals and/or treatment [...] 09/19/2023 Osteoporosis Palpitations Pneumonia Recurrent major depression ([facility]) Sciatica Thoracic compression fracture ([facility]) Vitamin D deficiency [2] Past Surgical History: [...] not included. Speech-Language Pathology SPEECH LANGUAGE PATHOLOGY [facility] Bedside Swallow Evaluation Patient Name: Gonzalo Deluca Evaluation Date: 07/31/2024 Date of : 1955 Admission Date: 07/30/2024 4:40 PM Age: 68 y.o. Room/Bed: [facility] B IMPRESSION: No s/s oropharyngeal dysphagia. No [...] needed. Pt would benefit from skilled acute [facility] ROOM services Ensure patient tolerance of the recommended [...] be evaluated. Dysphagia History: No history of [facility] ROOM services in EMR with retrospective chart review Baseline Diet: Regular diet with thin liquids Current Diet: Dietary Orders (From admission, onward) Start Ordered 07/31/24 1031 Supplement:AM Snack, PM Snack; [place]illa Ensure Plus Until discontinued Question Answer Comment Frequency AM Snack Frequency PM Snack Select supplement: Vanilla Ensure Plus 07/31/24 1030 07/31/24 1031 Supplement:HS Snack; [place] Ensure Plus Until discontinued Question Answer Comment Frequency HS Snack Select supplement: [place] Ensure Plus 07/31/24 1030 07/30/24 2313 Adult [...] Problem List Diagnosis Date Noted Severe malnutrition ([facility]/HCC) ([facility]) 07/31/2024 Adult failure to thrive 07/30/2024 Falls frequently 09/20/2023 Unintentional weight loss 09/20/2023 Debility 09/20/2023 PFO (patent foramen ovale) 09/20/2023 Lumbar compression fracture, closed, initial encounter ([facility]) 02/13/2023 Nondisplaced fracture of neck of left femur ([facility]) 11/06/2022 Other specified complication of vascular prosthetic devices, implants and grafts, initial encounter ([facility]) 08/06/2021 Poor venous access 12/19/2019 H/O: CVA (cerebrovascular accident) 12/14/2019 Malignant neoplasm of exocervix ([facility]) 11/07/2019 S/P hysterectomy 11/07/2019 PNA (pneumonia) 08/02/2019 Leukocytosis 04/13/2018 Shortness of breath 04/13/2018 DDD (degenerative disc disease), cervical 04/12/2018 Recurrent major depression ([facility]) 04/12/2018 Chronic back pain 04/10/2017 COPD (chronic obstructive pulmonary disease) ([facility]) 04/10/2017 Pulmonary nodule 04/10/2017 Sciatica 04/10/2017 Supplemental [...] States was sent by PCP Shortness of [id number] y.o. who presents to the emergency department [...] for safe consumption of daily meals Start: 05/13/25 Expected End: 08/07/24 Therapy Time [facility] ROOM Individual Minutes Time In: 1518 Time Out: [...] BSO AND PELVIC LYMPH; DR. ZIYAD MENENDEZ [facility] OTHER SURGICAL HISTORY Left 12/19/2019 Med Port POWER Regular Size OTHER SURGICAL HISTORY Left 11/07/2022 Percutaneous skeltal fixation femoral fracture TUBAL LIGATION 1992 Images from the original note were not included. PHYSICAL THERAPY [facility] Name/MRN: Gonzalo Deluca ([id number]) Date: 07/31/2024 Chart review completed. Patient is currently OOR for testing and not available to participate in PT session. Will continue to follow and re-attempt as appropriate. Jennifer Esparza, PT Nutrition Assessment Type and Reason for Visit: Initial, Consult (poor po - needs high calorie supplement) Nutrition Recommendations/Plan: Suggest to continue regular diet to promote intake. Upper dentures not here- denies issues -denies assist status- [facility] ROOM ordered per MNT protocol , will initiate [...] (interosseous) Fluid Accumulation: No significant fluid accumulation Personal Investment Adviser Strength: na Nutrition Assessment: per MD-CHIEF COMPLAINT [...] loss in 1 yr- BARREL CHESTED , / bm hypoactive,jeri 21,alb 3, hgb 11.2, co2- [...] lb) (08/06/24) % Weight Change (Calculated): -28.8 [place] Body Weight (lbs) (Calculated): 120 lbs [place] Body Weight (Kg) (Calculated): 55 kg % [place] Body Weight (Calculated): 74.2 % BMI (kg/m2) [...] Oral Nutrition Supplement Phillip Bradshaw RD Contact: *[phone] or secure chat documented in this encounter [facility] 08-08-2024 Plan of care note Problem: Knowledge Deficit Goal: Patient/family/caregiver demonstrates understanding of disease process, treatment plan, medications, and discharge instructions 08/08/2024446 by Sadie Rodriguez RN Outcome: Not Progressing 08/08/2024 031 by Sadie Rodriguez RN Outcome: Progressing Problem: Potential for Compromised Skin Integrity Goal: Skin Integrity is Maintained or Improved 08/08/2024 044 by Sadie Rodriguez RN Outcome: Not Progressing 08/08/2024315 by Sadie Rodriguez RN Outcome: Not Progressing Problem: Urinary Incontinence Goal: Perineal skin integrity is maintained or improved 08/08/2024 044 by Sadie Rodriguez RN Outcome: [...] RN Outcome: Progressing 08/08/2024 031 by Sadie Rordiguez RN Outcome: Not Progressing Goal: Promote nutritional intake 08/08/2024 0447 by Sadie Rodriguez RN Outcome: Progressing 08/08/2024 0316 by Sadie Rodriguez RN Outcome: Not Progressing [facility] 08-08-2024 Plan of care note Problem: [...] Goal: Promote nutritional intake Outcome: Not Progressing T [facility] 08-07-2024 Note Formatting of this n ote might be different from the original. Care Management Progress Note -Pt started the appeals process yesterday for denied SNF stay. We now have 72 hours for a response from her insurance. -Notified Dr. Beverly -Updated clinicals faxed to [phone] -If the appeal process is upheld, pt will have to go home with [facility]. -vending manager to follow and assist as needed. Length of Stay (Days): 6 GMLOS: 5.2 [facility] 08-07-2024 Note Formatting of this n ote might be different from the original. Care Management Progress Note -Pt started the appeals process yesterday for denied SNF stay. We now have 72 hours for a response from her insurance. -Notified Dr. Beverly -Updated clinicals faxed to [phone] -If the appeal process is upheld, pt will have to go home with [facility]. -vending manager to follow and assist as needed. Length of Stay (Days): 6 GMLOS: 5.2 [facility] 08-06-2024 Plan of care note Problem: [...] Problem Interventions Goal: Dietary Supplements Outcome: Progressing T [facility] 08-06-2024 Note Formatting of this n ote might be different from the original. Spoke with pt earlier in the day to to determine if she wants to appeal the P2P decision denying SNF. Pt asked to go to [place]. She is in the process of trying to get to [facility] through her waiver services. She started this [...] Appeals number given to pt to call: [phone]. Appeals fax number: [phone]. Pt was calling as this CM was walking out of her room. vending manager to follow and assist as needed. T [facility] 08-06-2024 Note Formatting of this n ote might be different from the original. Spoke with pt earlier in the day to to determine if she wants to appeal the P2P decision denying SNF. Pt asked to go to [place]. She is in the process of trying to get to [facility] through her waiver services. She started this [...] Appeals number given to pt to call: [phone]. Appeals fax number: [phone]. Pt was calling as this CM was walking out of her room. vending manager to follow and assist as needed. T [facility] 08-06-2024 Note Formatting of this n ote might be different from the original. Spoke with patients demetrice Schwarz, regarding dc plans, who states that they would like to ideally get patient into fpc and then get patient over to [facility] under Medicaid. This will require an insurance appeal for the fpc facility. Shared this discussion with the TCC [facility] 08-06-2024 Note Formatting of this n ote might be different from the original. Spoke with patients demetrice Schwarz, regarding dc plans, who states that they would like to ideally get patient into fpc and then get patient over to [facility] under Medicaid. This will require an insurance appeal for the fpc facility. Shared this discussion with the TCC [facility] 08-06-2024 Plan of care note Problem: [...] My discharge needs are met Outcome: Progressing [facility] 08-06-2024 Plan of care note Problem: [...] integrity is maintained or improved Outcome: Progressing [facility] 08-05-2024 Plan of care note Problem: [...] Interventions Goal: Assess Nutritional Intake Outcome: Progressing [facility] 08-05-2024 Plan of care note Problem: [...] Progressing Goal: Promote nutritional intake Outcome: Progressing [facility] 08-04-2024 Note Formatting of this n ote might be different from the original. Was updated by attending that peer to peer was denied and patient would need to submit an appeal. The appeal number for [facility] is [phone] and fast appeal fax [phone] is not open on the weekend and this will need to be initiated on Tuesday. Discussed with patient and she wanted to discuss with her daughter prior to deciding to pursue appeal or discharge home with [facility]. She did state that her daughter was interested in getting her into an assistive living and that she has medicaid. Will update weekday TCC to follow.. [facility] 08-04-2024 Note Formatting of this n ote might be different from the original. Was updated by attending that peer to peer was denied and patient would need to submit an appeal. The appeal number for [facility] is [phone] and fast appeal fax [phone] is not open on the weekend and this will need to be initiated on Tuesday. Discussed with patient and she wanted to discuss with her daughter prior to deciding to pursue appeal or discharge home with [facility]. She did state that her daughter was interested in getting her into an assistive living and that she has medicaid. Will update weekday TCC to follow.. [facility] 08-04-2024 Plan of care note Problem: [...] My discharge needs are met Outcome: Progressing [facility] 08-04-2024 Note Formatting of this n ote might be different from the original. Called [facility] and spoke with [employer] is requesting peer to peer to be completed by 08/06 at 12 noon central standard time. Number for peer to peer is [phone] option 5. Will need members name, and ID number. Physicians are available 8-5 over the weekend central standard time. Did update attending with information to complete peer to peer. . [facility] 08-04-2024 Note Formatting of this n ote might be different from the original. Called [facility] and spoke with [employer] is requesting peer to peer to be completed by 08/06 at 12 noon central standard time. Number for peer to peer is [phone] option 5. Will need members name, and ID number. Physicians are available 8-5 over the weekend central standard time. Did update attending with information to complete peer to peer. . [facility] 08-04-2024 Plan of care note Problem: [...] Progressing Goal: Promote nutritional intake Outcome: Progressing [facility] 08-03-2024 Note Formatting of this n ote might be different from the original. Tasked weekend family caseworker to follow for pending auth to [facility]. 7000 will need to be completed at the time of discharge. vending manager to follow and assist as needed. [facility] 08-03-2024 Note Formatting of this n ote might be different from the original. Tasked weekend family caseworker to follow for pending auth to [facility]. 7000 will need to be completed at the time of discharge. vending manager to follow and assist as needed. [facility] 08-03-2024 Note Formatting of this n ote might be different from the original. Sent updated notes to [facility] per TCC request. Await review and response regarding ability to accept. TCC notified. [facility] 08-03-2024 Note Formatting of this n ote might be different from the original. Sent updated notes to [facility] via [facility] per TCC request. Await review and response regarding ability to accept. TCC notified. [facility] 08-03-2024 Note Formatting of this n ote might be different from the original. Care Management Progress Note -Discharge plan is [facility] -Tasked DIRECTOR NURSING SERVICE insurance agents supervisor to start auth. -Tasked DIRECTOR NURSING SERVICE to send updated clinical notes to facility. -vending manager to follow for auth approval and assist as needed. Length of Stay (Days): 2 GMLOS: 4.1 [facility] 08-03-2024 Note Formatting of this n ote might be different from the original. Care Management Progress Note -Discharge plan is [facility] -Tasked DIRECTOR NURSING SERVICE insurance agents supervisor to start auth. -Tasked DIRECTOR NURSING SERVICE to send updated clinical notes to facility. -vending manager to follow for auth approval and assist as needed. Length of Stay (Days): 2 GMLOS: 4.1 T [facility] 08-03-2024 Plan of care note Problem: [...] Interventions Goal: Assess Nutritional Intake Outcome: Progressing T [facility] 08-03-2024 Plan of care note Problem: [...] My discharge needs are met Outcome: Progressing [facility] 08-02-2024 Note Formatting of this n ote might be different from the original. Referral placed to [facility] via [facility] per TCC request. Await review and response regarding ability to accept. TCC notified. [facility] 08-02-2024 Note Formatting of this n ote might be different from the original. Referral placed to [facility] via [facility] per TCC request. Await review and response regarding ability to accept. TCC notified. [facility] 08-02-2024 Note Formatting of this n ote might be different from the original. Care Management Progress Note -Spoke with pt at bedside for SNF choices. -Pt would like referrals sent to [facility], [facility], [facility], and [facility]. -Tasked DIRECTOR NURSING SERVICE to send those referrals. -Will speak with pt again once facility responses are in for facility of choice. -vending manager to follow and assist as needed. Length of Stay (Days): 1 GMLOS: No GMLOS Documented -Spoke with pt and she has chosen [facility] as FOC. Informed facility. ADOD is [address] Bishop. Anticipate starting auth tomorrow. vending manager to follow and assist as needed. [facility] 08-02-2024 Note Formatting of this n ote might be different from the original. Care Management Progress Note -Spoke with pt at bedside for SNF choices. -Pt would like referrals sent to [facility], [facility], [facility], and [facility]. -Tasked DIRECTOR NURSING SERVICE to send those referrals. -Will speak with pt again once facility responses are in for facility of choice. -vending manager to follow and assist as needed. Length of Stay (Days): 1 GMLOS: No GMLOS Documented -Spoke with pt and she has chosen [facility] as FOC. Informed facility. ADOD is [address] Bishop. Anticipate starting auth tomorrow. vending manager to follow and assist as needed. [facility] 08-02-2024 Plan of care note Problem: [...] needs are met Outcome: Progressing [facility] 08-02-2024 Hospital Discharg e instructions Gabriela [...] Information Primary Emergency Contact: Karishma Deluca [address]: [address] [place] [address] Mobile Relation: Daughter Secondary Emergency Contact: Jace Deluca Mobile Relation: Son Past Surgical History: Past Surgical History: Procedure Laterality Date CYSTOSCOPY 01/12/2017 OFFICE PROCEDURE CYSTOSCOPY 02/11/2017 C&P bladder biopsy EYE SURGERY detached retina 1994 HYSTERECTOMY 11/06/2019 ABDOMINAL RADICAL HYSTERECTOMY WITH BSO AND PELVIC LYMPH; DR. ZIYAD MENENDEZ [facility] OTHER SURGICAL HISTORY Left 12/19/2019 Med Port [...] (HCC) Lumbar compression fracture, closed, initial encounter ([facility]) Severe malnutrition (CMS/HCC) ([facility]) Falls frequently Unintentional weight loss Debility PFO (patent foramen ovale) Poor venous access Chronic back pain COPD (chronic obstructive pulmonary disease) ([facility]) Overview Signed 01/01/2022 6:48 AM by Interface, [...] Dressing Independent Toileting Minimal assistance Feeding Independent Engine Specialist Minimal assistance Med Delivery yes Wound Care [...] Date: 07/30/24 Discharging to Facility/ Agency Name: [facility] Address: [address] [place] [id number] Fax: Dialysis Facility (if applicable) Name: Address: Dialysis Schedule: Phone: Fax: Senior Media Director/Rug Renovator signature: ICIAN SECTION Name: Gonzalo Deluca Prognosis: fair Condition at Discharge: stable Rehab Potential (if transferring to Rehab): good Recommended Labs or Other Treatments After Discharge: CBC and CMP The individual is being admitted to a nursing facility directly from an [facility] or a unit of a [facility] that is not operated by or licensed by [facility] under section 5119.14 or 5160-3-15.1 5 The individual requires the level of services provided by a nursing facility for the condition for which he or she was treated in the hospital and, Physician Certification: I certify the above information and transfer of Gonzalo Deluca is necessary for the continuing treatment of the diagnosis listed and that she requires fpc facility for less than 30 days. Update [...] status. Recent healthcare interactions include consultations with [facility], palliative care, pulmonology, orthopedic surgery, geriatrics, and [...] respiratory failure and severe emphysema. Plan: - [facility]NA[facility] ROOM evaluation: recommended regular solids with thin liquids, [...] SIGNATURE: documented in this encounter [facility] 08-02-2024 Plan of care note Problem: [...] needs are met Outcome: Progressing [facility] 08-01-2024 Note Formatting of this n [...] case she decides before then on choices. -vending manager to follow and assist as needed. Length of Stay (Days): 1 GMLOS: No GMLOS Documented [facility] 08-01-2024 Note Formatting of this n [...] case she decides before then on choices. -vending manager to follow and assist as needed. Length of Stay (Days): 1 GMLOS: No GMLOS Documented [facility] 08-01-2024 Consult note Formatting of th is note is different from the original. [facility], Pulmonary Medicine [address] [place] [id number] Patient - Gonzalo Deluca - 1955 Date [...] hematemesis melena hematuria Apparently not seeing any ultrasound specialist recently Was on Dulera Spiriva and rescue [...] - Unmet Transportation Needs (06/06/2024) Received from [facility] PRAPARE - Transportation Lack of Transportation (Medical): Yes Lack of Transportation (Non-Medical): No Physical Activity: Insufficiently Active (07/31/2024) Exercise Vital Sign Days of Exercise per Week: 3 days Minutes of Exercise per Session: 20 min Stress: No Stress Concern Present (07/31/2024) [employer] - Occupational Stress Questionnaire Feeling of Stress : Only a little Recent Concern: Stress - Stress Concern Present (06/06/2024) Received from [facility] [employer] - Occupational Stress Questionnaire Feeling of Stress : To some extent Social Connections: Socially Isolated (07/31/2024) Social Connection and Isolation Panel [NHANES] Frequency of Communication with Friends and Family: Three times a week Frequency of Social Gatherings with Friends and Family: Three times a week Attends Evangelical Services: Never Active Member of Clubs or [...] 325 ml Output -- Net 325 ml @[id number]@ Physical Exam General appearance: Awake, alert, no [...] be severe no current PFT available on [facility] 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) Chronic back pain COPD (chronic obstructive pulmonary disease) ([facility]) DDD (degenerative disc disease), cervical Leukocytosis Malignant neoplasm of exocervix ([facility]) Recurrent major depression ([facility]) Pulmonary nodule S/P hysterectomy Sciatica Shortness of breath Supplemental oxygen dependent PNA (pneumonia) H/O: CVA (cerebrovascular accident) Former smoker Nondisplaced fracture of neck of left femur (HCC) Lumbar compression fracture, closed, initial encounter ([facility]) Severe malnutrition (CMS/HCC) ([facility]) Falls frequently Unintentional weight loss Debility PFO [...] BSO AND PELVIC LYMPH; DR. ZIYAD MENENDEZ [facility] OTHER SURGICAL HISTORY Left 12/19/2019 Med Port [...] Allergen Reactions Pollen Extract Unknown [facility] 08-01-2024 Consult note Formatting of th is note is different from the original. [facility], Pulmonary Medicine [address] [place] [id number] [id number] 1955 Date of Admission - 07/30/2024 [...] hematemesis melena hematuria Apparently not seeing any ultrasound specialist recently Was on Dulera Spiriva and rescue [...] - Unmet Transportation Needs (06/06/2024) Received from [facility] PRAPARE - Transportation Lack of Transportation (Medical): Yes Lack of Transportation (Non-Medical): No Physical Activity: Insufficiently Active (07/31/2024) Exercise Vital Sign Days of Exercise per Week: 3 days Minutes of Exercise per Session: 20 min Stress: No Stress Concern Present (07/31/2024) [employer] - Occupational Stress Questionnaire Feeling of Stress : Only a little Recent Concern: Stress - Stress Concern Present (06/06/2024) Received from [facility] [employer] - Occupational Stress Questionnaire Feeling of Stress : To some extent Social Connections: Socially Isolated (07/31/2024) Social Connection and Isolation Panel [NHANES] Frequency of Communication with Friends and Family: Three times a week Frequency of Social Gatherings with Friends and Family: Three times a week Attends Evangelical Services: Never Active Member of Clubs or [...] 325 ml Output -- Net 325 ml @[id number]@ Physical Exam General appearance: Awake, alert, no [...] be severe no current PFT available on [facility] 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) Chronic back pain COPD (chronic obstructive pulmonary disease) ([facility]) DDD (degenerative disc disease), cervical Leukocytosis Malignant neoplasm of exocervix ([facility]) Recurrent major depression ([facility]) Pulmonary nodule S/P hysterectomy Sciatica Shortness of breath Supplemental oxygen dependent PNA (pneumonia) H/O: CVA (cerebrovascular accident) Former smoker Nondisplaced fracture of neck of left femur ([facility]) Lumbar compression fracture, closed, initial encounter ([facility]) Severe malnutrition (CMS/HCC) (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 -Insurance Agents Supervisor would be helpful. -BMI 15.28 -Albumin-->3.0 -Monitor. [...] with primary attending or other consultants, Electronic parts order and stock clerk of medications, tests or procedures, Obtaining and/or [...] detailed in the note above. Imelda Bernard, 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 - TONG SETTER Palliative Care Assessments: Goals of care: Continue Current Management, Live Longer, extend life as much as possible, Improve or Maintain Function/Quality of Life, Preserve [place]/Autonomy/Control, and Remain at Home Advanced Directives: DNR Functional Assessment: PPS 70% amb reduced; can't do normal work/some disease; full self care; normal or reduced intake; full LOC Prognosis: depends upon goals of care Spiritual Assessment: No spiritual distress identified Bereavement and Grief: To Be Determined PDMP/OARRS Reviewed: Yes-reviewed Social history: Marital status: Children: not addressed Living status: with daughter Work history: retired [place] status: No Evangelical sharla: None ROS: See palliative care ROS/ESAS below; All other systems were reviewed and are negative. Clarence Symptom Assessment Score Clarence Score Pain Score (if non-verbal, add .FLACC [...] at this time Transition Note Initiated: yes Imelda Bernard, DB - TONG SETTER [1] Past Medical History: Diagnosis Date Abnormal [...] BSO AND PELVIC LYMPH; DR[facility] ZIYAD MARISCAL [facility] OTHER SURGICAL HISTORY Left 12/19/2019 Med Port [...] EDT Associated Order(s): IP CONSULT TO GERIATRICS [facility] Inpatient Consult Service Admission Date: [...] deficits. --Recommend outpatient follow up at [facility] ([facility]) for more in depth [...] fracture, Vitamin D deficiency, anxiety, presented to [facility] on 07/30/24 with complaints of weight [...] memory issues for a year with progression. [place] she was managing her medications ok. Daughter [...] 350 ms QTC Interval 439 ms P Momence 53 degrees QRS Momence -35 degrees T Wave Momence 43 degrees MS Interval 137 ms CBC auto differential Collection [...] Lauren Serna MD, 10 mg at 07/31/24 003 naloxone (Narcan) injection 0.4 mg, 0.4 mg, [...] Thoracic compression fracture (HCC) Vitamin D deficiency [4] Past Surgical History: Procedure Laterality Date CYSTOSCOPY 01/12/2017 OFFICE PROCEDURE CYSTOSCOPY 02/11/2017 C&P bladder biopsy EYE SURGERY detached retina 1994 HYSTERECTOMY 11/06/2019 ABDOMINAL RADICAL HYSTERECTOMY WITH BSO AND PELVIC LYMPH; DR. ZIYAD MENENDEZ [facility] OTHER SURGICAL HISTORY Left 12/19/2019 Med Port [...] before November 09, 2022. 11/09/22 12/09/22 Raul Whipple DO PARoxetine (Paxil) 20 MG tablet Take 1 tablet (20 mg) by mouth every morning. 09/22/23 10/22/23 Roland Ortiz, atorvastatin (Lipitor) 40 MG tablet Take 1 [...] BSO AND PELVIC LYMPH; DR. ZIYAD MENENDEZ [facility] OTHER SURGICAL HISTORY Left 12/19/2019 Med Port [...] Hx documented in this encounter [facility] 08-01-2024 Plan of care note Problem: [...] needs are met Outcome: Progressing [facility] 07-31-2024 Note Formatting of this n ote might be different from the original. Head Piece Assembler following case for Discharge Needs. [facility] 07-31-2024 Note Formatting of this n ote might be different from the original. Head Piece Assembler following case for Discharge Needs. [facility] 07-31-2024 Consult note Associated Order (s): IP CONSULT TO DIETITIAN Images from the original note were not included. Nutrition Assessment Type and Reason for Visit: Initial, Consult (poor po - needs high calorie supplement) Nutrition Recommendations/Plan: Suggest to continue regular diet to promote intake. 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 -Insurance Agents Supervisor would be helpful. -BMI 15.28 -Albumin-->3.0 -Monitor. [...] with primary attending or other consultants, Electronic parts order and stock clerk of medications, tests or procedures, Obtaining and/or [...] detailed in the note above. Imelda Bernard, 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 - TONG SETTER Palliative Care Assessments: Goals of care: Continue Current Management, Live Longer, extend life as much as possible, Improve or Maintain Function/Quality of Life, Preserve [place]/Autonomy/Control, and Remain at Home Advanced Directives: DNR Functional Assessment: PPS 70% amb reduced; can't do normal work/some disease; full self care; normal or reduced intake; full LOC Prognosis: depends upon goals of care Spiritual Assessment: No spiritual distress identified Bereavement and Grief: To Be Determined PDMP/OARRS Reviewed: Yes-reviewed Social history: Marital status: Children: not addressed Living status: with daughter Work history: retired [place] status: No Evangelical sharla: None ROS: See palliative care ROS/ESAS below; All other systems were reviewed and are negative. Clarence Symptom Assessment Score Clarence Score Pain Score (if non-verbal, add .FLACC [...] at this time Transition Note Initiated: yes Imelda Bernard APRN - [place] [1] Past Medical History: Diagnosis Date Abnormal [...] BSO AND PELVIC LYMPH; DR. ZIYAD MENENDEZ [facility] OTHER SURGICAL HISTORY Left 12/19/2019 Med Port [...] at 08/01/2024 5:26 PM EDT [facility] 07-31-2024 Note Formatting of this n ote is different from the original. Images from the original note were not included. [facility] Palliative Care Transitions of Care Note Gonzalo Starksyahir : 1955 ADMIT DATE: 07/30/2024 DISCHARGE DATE: [...] short of breath when trying to eat. -Insurance Agents Supervisor would be helpful. -BMI 15.28 -Albumin-->3.0 -Monitor. [...] Skilled Rehab Facility FACILITY/HOME CARE AGENCY NAME: [facility] to call patient. [...] Aggarwal CNP 08/03/2024, 10:20 AM [facility] 07-31-2024 Note Formatting of this n ote is different from the original. Images from the original note were not included. [facility] Pall[facility] Care Transitions of Care Note Gonzalo Starksyahir : 1955 ADMIT DATE: 07/30/2024 DISCHARGE DATE: [...] short of breath when trying to eat. -Insurance Agents Supervisor would be helpful. -BMI 15.28 -Albumin-->3.0 -Monitor. [...] Skilled Rehab Facility FACILITY/HOME CARE AGENCY NAME: [facility] to call patient. [...] Aggarwal CNP 08/03/2024, 10:20 AM [facility] 07-31-2024 Note Formatting of this n [...] scheduled appointment 93% on 5L last read [facility] 07-31-2024 Note Formatting of this n [...] scheduled appointment 93% on 5L last read [facility] 07-31-2024 Consult note Associated Order (s): IP CONSULT TO GERIATRICS [facility] Inpatient Consult Service Admission Date: [...] fracture, Vitamin D deficiency, anxiety, presented to [facility] on 07/30/24 with complaints of weight [...] memory issues for a year with progression. [place] she was managing her medications ok. Daughter [...] 350 ms QTC Interval 439 ms P Momence 53 degrees QRS Momence -35 degrees T Wave Momence 43 degrees MS Interval 137 ms CBC auto differential Collection [...] BID, Lauren Serna MD, 15 mg at 07/31/2429 calcitonin (Miacalcin) injection 50 Units, 50 Units, [...] q12h, Lauren Serna MD, 20 mg at 07/31/2423 mirtazapine (Remeron) tablet 15 mg, 15 mg, Oral, Nightly, Lauren Serna MD, 15 mg at 07/31/24 003 mometasone-formoterol (Dulera 200) 200-5 MCG/ACT inhaler 2 puff, 2 puff, Inhalation, BID, Lauren Serna MD, 2 puff at 07/31/24 003 montelukast (Singulair) tablet 10 mg, 10 mg, Oral, Nightly, Lauren Serna MD, 10 mg at 07/31/2430 naloxone (Narcan) injection 0.4 mg, 0.4 mg, [...] Thoracic compression fracture (HCC) Vitamin D deficiency [4] Past Surgical History: [...] Known Problems Brother Uterine cancer Neg Hx T [facility] 07-31-2024 Consult note Associated Order (s): [...] November 09, 2022. 11/09/22 12/09/22 Raul Whipple, PARoxetine (Paxil) 20 MG tablet Take 1 [...] 12 hours or as directed by MD. 10/16/23 07/30/24 Janneth Godinez PA-C Allergies Pollen [...] BSO AND PELVIC LYMPH; DR. ZIYAD MENENDEZ [facility] OTHER SURGICAL HISTORY Left 12/19/2019 Med Port POWER Regular Size OTHER SURGICAL HISTORY Left 11/07/2022 Percutaneous skeltal fixation femoral fracture TUBAL LIGATION 1992 [3] Family History Problem Relation Name Age of Onset Colon cancer Neg Hx Ovarian cancer Neg Hx Cancer Mother breast- to liver Cancer Sister breast Cancer Father lung to brain No Known Problems Brother Uterine cancer Neg Hx [facility] 07-30-2024 History and physical note History and Physical [facility] 1955 AGE 68 y.o. YEARS Note [...] Allergic rhinitis Arthritis Asthma Bronchitis Cancer (CMS/HCC) ([facility]) skin Cervical cancer ([facility]) Chest pain COPD (chronic obstructive pulmonary disease) ([facility]) USE OXYGEN 3 L AT NIGHT DDD (degenerative disc disease), cervical Defect, retina, with detachment right DJD (degenerative joint disease), lumbar Emphysema lung ([facility]) Former smoker Hematuria SCHEDULED FOR THE PROCEDURE /SURGERY ON 02/11/2017 Hypokalemia Lung nodules Near syncope 09/19/2023 Osteoporosis Palpitations Pneumonia Recurrent major depression (HCC) Sciatica Thoracic compression fracture (HCC) Vitamin D deficiency Past Surgical History: Procedure [...] 07/30/2024 350 QTC Interval 07/30/2024 439 P Momence 07/30/2024 53 QRS Momence 07/30/2024 -35 T Wave Momence 07/30/2024 43 MS Interval 07/30/2024 137 Auto WBC 07/30/2024 8.9 [...] QT Interval 350 QTC Interval 439 P Momence 53 QRS Momence -35 T Wave Momence 43 MS Interval 137 Impression Sinus rhythm Left axis [...] placed in a splint. She has seen [facility] orth[facility]ics in the past they will be [...] Time spent on admission 07/30/2024 Gonzalo Deluca [id number] Any scheduled follow up appointments Future Appointments Date Time Provider Department Center 09/04/2024 2:30 PM [facility] None Extended Emergency Contact Information Primary Emergency Contact: Karishma Deluca Address: [address] [place] [address] [place] [address] [place] Mobile Relation: Daughter Secondary Emergency Contact: Jace Deluca Mobile Relation: Son Portions of this note may be electronically transcribed. Please forward a copy of this H&P to the primary care physician. [place] Phone: 07-30-2024 Note [facility] 07-30-2024 History and physical note History and Physical [facility] Gonzalo Deluca : 1955 AGE 68 y.o. [...] 09/19/2023 Osteoporosis Palpitations Pneumonia Recurrent major depression ([facility]) Sciatica Thoracic compression fracture ([facility]) Vitamin D deficiency Past Surgical History: Procedure [...] 07/30/2024 350 QTC Interval 07/30/2024 439 P Momence 07/30/2024 53 QRS Momence 07/30/2024 -35 T Wave Momence 07/30/2024 43 MS Interval 07/30/2024 137 Auto WBC 07/30/2024 8.9 [...] QT Interval 350 QTC Interval 439 P Momence 53 QRS Momence -35 T Wave Momence 43 MS Interval 137 Impression Sinus rhythm Left axis [...] placed in a splint. She has seen [facility] in the past they will be [...] Time spent on admission 07/30/2024 Gonzalo Deluca [id number] Any scheduled follow up appointments Future Appointments Date Time Provider Department Center 09/04/2024 2:30 PM [facility] 1 [facility] None Extended Emergency Contact Information Primary Emergency Contact: Karishma Deluca Address: [address] [place] [address] Mobile Relation: Daughter Secondary Emergency Contact: Jace Deluca Mobile Relation: Son Portions of this note may be electronically transcribed. Please forward a copy of this H&P to the primary care physician. documented in this encounter [facility] 07-30-2024 Emergency department Note Associated Order(s): [...] Acute exacerbation of chronic obstructive pulmonary disease ([facility]) 04/12/2018 Allergic rhinitis Arthritis Asthma Bronchitis Cancer ([facility]) ([facility]) skin Cervical cancer ([facility]) Chest pain COPD (chronic obstructive pulmonary disease) ([facility]) USE OXYGEN 3 L AT NIGHT DDD (degenerative disc disease), cervical Defect, retina, with detachment right DJD (degenerative joint disease), lumbar Emphysema lung ([facility]) Former smoker Hematuria SCHEDULED FOR THE PROCEDURE /SURGERY ON 02/11/2017 Hypokalemia Lung nodules Near syncope 09/19/2023 Osteoporosis Palpitations Pneumonia Recurrent major depression ([facility]) Sciatica Thoracic compression fracture ([facility]) Vitamin D deficiency SURGICAL HISTORY Past Surgical History: Procedure Laterality Date CYSTOSCOPY 01/12/2017 OFFICE PROCEDURE CYSTOSCOPY 02/11/2017 C&P bladder biopsy EYE SURGERY detached retina 1994 HYSTERECTOMY 11/06/2019 ABDOMINAL RADICAL HYSTERECTOMY WITH BSO AND PELVIC LYMPH; DR. ZIYAD FISH OTHER SURGICAL HISTORY Left 12/19/2019 Med Port POWER Regular Size OTHER SURGICAL HISTORY Left 11/07/2022 Percutaneous skeltal fixation femoral fracture TUBAL LIGATION 1993 CURRENT MEDICATIONS Previous Medications ALBUTEROL 108 (90 [...] Resource Strain: Low Risk (06/06/2024) Received from [facility] Overall Financial Resource Strain (CARDIA) Difficulty of Paying Living Expenses: Not very hard Food Insecurity: No Food Insecurity (06/06/2024) Received from [facility] Hunger Vital Sign Worried About Running Out of Food in the Last Year: Never true Ran Out of Food in the Last Year: Never true Transportation Needs: Unmet Transportation Needs (06/06/2024) Received from [facility] PRAPARE - Transportation Lack of Transportation (Medical): Yes Lack of Transportation (Non-Medical): No Physical Activity: Inactive (06/06/2024) Received from [facility] Exercise Vital Sign Days of Exercise per Week: 0 days Minutes of Exercise per Session: 0 min Stress: Stress Concern Present (06/06/2024) Received from [facility] [employer] - Occupational Stress Questionnaire Feeling of Stress : To some extent Social Connections: Unknown (06/06/2024) Received from [facility] Social Connection and Isolation Panel [NHANES] Frequency of Communication with Friends and Family: Twice a week Frequency of Social Gatherings with Friends and Family: Never Attends Evangelical Services: Never Active Member of Clubs or [...] swelling Alternatives discussed: Delayed treatment and referral Piffard protocol: Patient identity confirmed: Verbally with patient [...] Medicine Provider Luis E Keating DO 07/30/24 [id number] documented in this encounter [facility] 07-30-2024 Physician Emergency department Note Associated Order(s): Splint Application EMERGENCY DEPARTMENT ENCOUNTER Pt Name: Gonzaol Deluca Birthdate 1955 Date of evaluation: 07/30/2024 [...] major depression (HCC) Sciatica Thoracic compression fracture ([facility]) Vitamin D deficiency SURGICAL HISTORY Past Surgical History: Procedure Laterality Date CYSTOSCOPY 01/12/2017 OFFICE PROCEDURE CYSTOSCOPY 02/11/2017 C&P bladder biopsy EYE SURGERY detached retina 1994 HYSTERECTOMY 11/06/2019 ABDOMINAL RADICAL HYSTERECTOMY WITH BSO AND PELVIC LYMPH; DR. ZIYAD MENENDEZ [facility] OTHER SURGICAL HISTORY Left 12/19/2019 Med Port [...] Resource Strain: Low Risk (06/06/2024) Received from [facility] Overall Financial Resource Strain (CARDIA) Difficulty of Paying Living Expenses: Not very hard Food Insecurity: No Food Insecurity (06/06/2024) Received from [facility] Hunger Vital Sign Worried About Running Out of Food in the Last Year: Never true Ran Out of Food in the Last Year: Never true Transportation Needs: Unmet Transportation Needs (06/06/2024) Received from [facility] PRAPARE - Transportation Lack of Transportation (Medical): Yes Lack of Transportation (Non-Medical): No Physical Activity: Inactive (06/06/2024) Received from [facility] Exercise Vital Sign Days of Exercise per Week: 0 days Minutes of Exercise per Session: 0 min Stress: Stress Concern Present (06/06/2024) Received from [facility] [employer] - Occupational Stress Questionnaire Feeling of Stress : To some extent Social Connections: Unknown (06/06/2024) Received from [facility] Social Connection and Isolation Panel [NHANES] Frequency of Communication with Friends and Family: Twice a week Frequency of Social Gatherings with Friends and Family: Never Attends Evangelical Services: Never Active Member of Clubs or [...] swelling Alternatives discussed: Delayed treatment and referral Piffard protocol: Patient identity confirmed: Verbally with patient [...] Medicine Provider Luis E Keating DO [id number]/30/242152 [facility] 07-30-2024 Note HNO ID: [id number] Author: HERMINIA CASE MD Service: ? Author Type: Physician Type: Progress Notes Filed: 07/30/2024 16:33 Note Text: 07/30/2024 Recording using Bloomspot software for draft documentation of the visit was discussed with the patient/authorized artists' booking representative; all questions welcomed and answered. Patient/authorized artists' booking representative agreed to proceed HPI: Gonzalo is [...] 2017 Years since quittin.3 Smokeless tobacco: Never Tobacco [...] skin lesions. HEAD (more content not included)... [facility] 07-30-2024 History of Presen t illness Narrative 07/30/2024 Recording using Bloomspot software for draft documentation of the visit was discussed with the patient/authorized artists' booking representative; all questions welcomed and answered. Patient/authorized artists' booking representative agreed to proceed HPI: Gonzalo is [...] Diagnosis Date COPD (chronic obstructive pulmonary disease) ([facility]) DDD (degenerative disc disease), lumbar Encounter for [...] cardiac events. - Patient to go to [place] ER for stabilization of oxygen levels and [...] oxygenation. - Consideration for admission to a fpc facility for nutritional support and rehabilitation. - Patient and family agree to ER visit for evaluation of failure to thrive and potential admission. Orders placed during this encounter: No orders found for this visit on 07/30/24. The patient indicates understanding of these issues and agrees with the plan of care. Red flag symptoms reviewed if needed. Herminia Case MD documented in this encounter [facility] 07-23-2024 Telephone encounter Note Prescription Refill Information [...] Shay LPN July 23, 2024 11:22 AM [facility] 07-23-2024 Miscellaneous Notes Prescription Refill Information The [...] 2024 11:22 AM documented in this encounter [facility] 07-02-2024 Telephone encounter Note Request completed and faxed. [facility] 07-02-2024 Miscellaneous Notes Request completed and faxed. Orders signed and in outbox. Please fax. Thank you, Leona Castañeda APRN.TONG SETTER Type of letter/form/fax request - Assisted living orders Form received from [facility] on 06/29/24 floor and placed on desk () for completion. Completed form needs to be faxed to [phone]. Route to [place] when form completed for processing documented in this encounter [facility] 07-02-2024 Telephone encounter Note Orders signed and in outbox. Please fax. Thank you, Leona Castañeda APRN.TONG SETTER [facility] Work Phone: 06-30-2024 Telephone encounter Note Type of letter/form/fax request - Assisted living orders Form received from [facility] on 06/29/24 floor and placed on MD desk () for completion. Completed form needs to be faxed to [phone]. Route to [place] when form completed for processing [facility] 06-26-2024 Telephone encounter Note Prescription Refill Information [...] Shay LPN June 26, 2024 9:32 AM [facility] 06-26-2024 Miscellaneous Notes Prescription Refill Information The [...] 2024 9:32 AM documented in this encounter [facility] 06-26-2024 Telephone encounter Note Prescription Refill Information [...] Patel MA June 26, 2024 8:38 AM [facility] 06-26-2024 Miscellaneous Notes Prescription Refill Information The [...] 2024 8:38 AM documented in this encounter [facility] 06-07-2024 Telephone encounter Note Herminia Case MD Thank you for the referral. Our first available date for a therapy start of care is 06/11/24. Please let us know if this is acceptable for you and the patient. Thank you , Maddi Valero LPN June 07, 2024 5:05 PM [facility] Work Phone: 06-07-2024 Miscellaneous Notes Herminia Case MD Thank you for the referral. Our first available date for a therapy start of care is 06/11/24. Please let us know if this is acceptable for you and the patient. Thank you , Maddi Valero LPN June 07, 2024 5:05 PM documented in this encounter [facility] 06-06-2024 Telephone encounter Note Herminia Case MD Thank you for the referral for Gonzalo Deluca to receive home care services through [facility]. At this time, the office note is [...] homebound - what is the diagnosis that [facility] is seeing the patient for. Thank you, Erna Diaz LPN [facility] Work Phone: 06-06-2024 Miscellaneous Notes Herminia Case MD Thank you for the referral for Gonzalo Deluca to receive home care services through [facility]. At this time, the office note is [...] Erna Diaz LPN documented in this encounter [facility] 06-06-2024 Note HNO ID: [id number] Author: HERMINIA CASE MD Service: ? Author Type: Physician Type: Progress Notes Filed: 06/07/2024 16:23 Note Text: VIRTUAL VISIT PROGRESS NOTE This is a virtual visit using Syncbakom Video Visit. It required patient-provider interaction for the medical decision making as documented below. I have communicated my name and active licensure. The patient's identity and physical location were verified at the time of this visit. Either the patient or their legal artists' booking representative has been informed of the risks [...] major depressive di (more content not included)... [facility] 06-06-2024 History of Presen t illness Narrative VIRTUAL VISIT PROGRESS NOTE This is a virtual visit using Syncbakom Video Visit. It required patient-provider interaction for the medical decision making as documented below. I have communicated my name and active licensure. The patient's identity and physical location were verified at the time of this visit. Either the patient or their legal artists' booking representative has been informed of the risks [...] visit: Panlobular emphysema (HCC) - CONSULT TO [facility] AT HOME - pt cannot drive, has severe anxiety when leaving the house due to oxygen requirements, falls frequently, short of breath with exertion. Would benefit from home health for general strengthening to avoid falls, risk assessment of house, social work consultation for assistance in future [place] [facility] care facility placement. Moderate episode of recurrent major depressive disorder (HCC) - increase to 30 mg, mirtazapine (REMERON) 15 mg tablet; Take 2 tablet by mouth daily at bedtime. Chronic respiratory failure with hypoxia (HCC) - CONSULT TO [facility] There are no Patient Instructions on file for this visit. Herminia Case MD documented in this encounter [facility] 05-26-2024 Telephone encounter Note Prescription Refill Information [...] Shay LPN May 26, 2024 12:10 PM [facility] 05-26-2024 Miscellaneous Notes Prescription Refill Information The [...] 2024 12:10 PM documented in this encounter [facility] 05-22-2024 Note Patient Outreach (FA MDNA) GONZALO DELUCA ([id number]) 1955 F Date Time Provider Department 05/22/24 HERMINIA CASE During your visit today, we recorded the following information about you: Allergies As of Date: 05/22/2024 Noted Allergy Reaction SEASONAL ALLERGIES 08/16/2017 5 - Intolerance Date Reviewed: 12/30/2023 Reviewed by: Joaquina Martinez APRN.TONG SETTER - Fully Assessed Visit Diagnosis:Encounter for screening mammogram for breast cancer [Z12.31] Order(s):[facility] SCREENING [facility] [[id number]] Order #: [id number] FUTURE Prescriptions as of 06/22/2024 - mirtazapine [...] [Z99.81] 04/10/2017 Diagnosed: 03/11/2023 Encounter Status:Closed by EPIC, PRODUSER on 06/22/24 [facility] 05-09-2024 Telephone encounter Note Pt has refills on current prescription that should be available until end may. Melva Powell PA-C [facility] 05-09-2024 Miscellaneous Notes Pt has refills on current prescription that should be available until end may. ThanksMelva PA-C Prescription Refill Information The patient has [...] 2024 9:26 AM documented in this encounter [facility] 05-09-2024 Telephone encounter Note Prescription Refill Information [...] Weathers MA May 09, 2024 9:26 AM [facility] 05-02-2024 Note HNO ID: [id number] Author: ?, ?, ? Service: ? Author Type: ? Type: Progress Notes Filed: 05/02/2024 18:24 Note Text: Pt got scheduled [facility] 05-02-2024 Note HNO ID: [id number] Author: ?, ?, ? Service: ? Author Type: ? Type: Progress Notes Filed: 05/02/2024 12:10 Note Text: Mc sent [facility] 05-02-2024 History of Presen t illness Narrative Mc sent VIRTUAL VISIT PROGRESS NOTE This is a virtual visit using [employer] Visit. It required patient-provider interaction for the medical decision making as documented below. I have communicated my name and active licensure. The patient's identity and physical location were verified at the time of this visit. Either the patient or their legal artists' booking representative has been informed of the risks [...] fall a few days ago, [facility] Doesn't recall how it happened, fell [...] date: 1970 Quit date: 2017 Years since quittin.1 Smokeless tobacco: Never Tobacco [...] Herminia Case MD documented in this encounter [facility] 05-02-2024 Note HNO ID: [id number] Author: HERMINIA CASE MD Service: ? Author Type: Physician Type: Progress Notes Filed: 05/02/2024 11:35 Note Text: VIRTUAL VISIT PROGRESS NOTE This is a virtual visit using [employer] Visit. It required patient-provider interaction for the medical decision making as documented below. I have communicated my name and active licensure. The patient's identity and physical location were verified at the time of this visit. Either the patient or their legal artists' booking representative has been informed of the risks [...] fall a few days ago, went [facility] Doesn't recall how it happened, fell [...] OF SYSTEMS: GENERAL: (more content not included)... [facility] 05-01-2024 Telephone encounter Note Mc sent [facility] 05-01-2024 Miscellaneous Notes Mc sent Needs appointment. [...] 2024 6:08 PM documented in this encounter [facility] 05-01-2024 Telephone encounter Note Needs appointment. [facility] 04-30-2024 Telephone encounter Note Prescription Refill Information [...] Shay LPN April 30, 2024 6:08 PM [facility] 04-27-2024 Emergency department Note Patient: Gonzalo Deluca [...] for clarification.) Flako Altamirano MD [employer] CHIEF COMPLAINT Chief Complaint Patient presents with [...] 04/12/2018 Allergic rhinitis Arthritis Asthma Bronchitis Cancer ([facility]) ([facility]) skin Cervical cancer ([facility]) Chest pain COPD (chronic obstructive pulmonary disease) ([facility]) USE OXYGEN 3 L AT NIGHT DDD (degenerative disc disease), cervical Defect, retina, with detachment right DJD (degenerative joint disease), lumbar Emphysema lung ([facility]) Former smoker Hematuria SCHEDULED FOR THE PROCEDURE /SURGERY ON 02/11/2017 Hypokalemia Lung nodules Near syncope 09/19/2023 Osteoporosis Palpitations Pneumonia Recurrent major depression ([facility]) Sciatica Thoracic compression fracture ([facility]) Vitamin D deficiency SURGICAL HISTORY Past Surgical [...] min Stress: No Stress Concern Present (09/19/2023) [employer] - Occupational Stress Questionnaire Feeling of Stress : Only a little Social Connections: Socially Isolated (09/19/2023) Social Connection and Isolation Panel [NHANES] Frequency of Communication with Friends and Family: Three times a week Frequency of Social Gatherings with Friends and Family: Three times a week Attends Evangelical Services: Never Active Member of Clubs or [...] Homeless in the Last Year: No SCREENINGS [place] Coma Scale Best Eye Response: Spontaneous Best Verbal Response: Oriented Best Motor Response: Follows commands [place] Coma Scale Score: 15 PHYSICAL EXAM ED [...] 1.6 m (5' 3") Diagnoses as of 04/28/24 0112 Contusion of face, initial encounter Medications ketorolac (Toradol) injection 15 mg (has no administration in time range) sodium chloride 0.9 % bolus 1,000 mL (1,000 mL IntraVENous New Bag 04/27/24 6286) REVAL: MDM On reassessment I talked to [...] AM PATIENT REFERRED TO: Herminia Case MD [address] [place] [address] DISCHARGE MEDICATIONS: New Prescriptions No medications on [...] fall documented in this encounter [facility] 04-27-2024 Emergency department Triage note Per ems, fall on carpeted floor. _ LOC but pt states she was dizzy and weak prior to fall. C/o L elbow and nose pain 2ndary fall [facility] 04-27-2024 Physician Emergency department Note Patient: Gonzalo [...] for clarification.) Flako Altamirano MD [employer] CHIEF COMPLAINT Chief Complaint Patient presents with [...] Chest pain COPD (chronic obstructive pulmonary disease) ([facility]) USE OXYGEN 3 L AT NIGHT DDD (degenerative disc disease), cervical Defect, retina, with detachment right DJD (degenerative joint disease), lumbar Emphysema lung ([facility]) Former smoker Hematuria SCHEDULED FOR THE PROCEDURE /SURGERY ON 02/11/2017 Hypokalemia Lung nodules Near syncope 09/19/2023 Osteoporosis Palpitations Pneumonia Recurrent major depression ([facility]) Sciatica Thoracic compression fracture ([facility]) Vitamin D deficiency SURGICAL HISTORY Past Surgical History: Procedure Laterality Date CYSTOSCOPY 01/12/2017 OFFICE PROCEDURE CYSTOSCOPY 02/11/2017 C&P bladder biopsy EYE SURGERY detached retina 1994 HYSTERECTOMY 11/06/2019 ABDOMINAL RADICAL HYSTERECTOMY WITH BSO AND PELVIC LYMPH; DR[facility] ZIYAD MENENDEZ [facility] OTHER SURGICAL HISTORY Left 12/19/2019 Med Port [...] min Stress: No Stress Concern Present (09/19/2023) [employer] - Occupational Stress Questionnaire Feeling of Stress : Only a little Social Connections: Socially Isolated (09/19/2023) Social Connection and Isolation Panel [NHANES] Frequency of Communication with Friends and Family: Three times a week Frequency of Social Gatherings with Friends and Family: Three times a week Attends Evangelical Services: Never Active Member of Clubs or [...] Homeless in the Last Year: No SCREENINGS [place] Coma Scale Best Eye Response: Spontaneous Best Verbal Response: Oriented Best Motor Response: Follows commands [place] Coma Scale Score: 15 PHYSICAL EXAM ED [...] 1.6 m (5' 3") Diagnoses as of 04/28/24 0112 Contusion of face, initial encounter Medications ketorolac (Toradol) injection 15 mg (has no administration in time range) sodium chloride 0.9 % bolus 1,000 mL (1,000 mL IntraVENous New Bag 04/27/24 1313) REVAL: MDM On reassessment I talked to [...] AM PATIENT REFERRED TO: Herminia Case MD [address] [place] [id number] DISCHARGE MEDICATIONS: New Prescriptions No medications on [...] signed) Emergency Medicine Provider Flako Altamirano MD 04/28/24 0112 [facility] 04-06-2024 Telephone encounter Note Prescription Refill Information [...] Weathers MA April 06, 2024 9:03 AM [facility] 04-06-2024 Miscellaneous Notes Prescription Refill Information The [...] 2024 9:03 AM documented in this encounter [facility] 04-02-2024 Telephone encounter Note Pt has three refills available at the pharmacy. Melva Juárez PA-C [facility] 04-02-2024 Miscellaneous Notes Pt has three refills [...] Alejandra Reno MA documented in this encounter [facility] 04-02-2024 Telephone encounter Note [facility] Patient has been identified by [...] applicable Please advise. Maria Alejandra Reno MA [facility] 04-02-2024 Miscellaneous Notes Pharmacy [facility] Patient has been identified by [...] Alejandra Reno MA documented in this encounter [facility] 04-02-2024 Telephone encounter Note Pharmacy verified in [...] applicable Please advise. Maria Alejandra Reno MA [facility] 03-20-2024 Telephone encounter Note Prescription Refill [...] Baltazar MA March 20, 2024 12:08 PM [facility] 03-20-2024 Miscellaneous Notes Prescription Refill Information [...] 2024 12:08 PM documented in this encounter [facility] 03-12-2024 Telephone encounter Note Pharmacy [facility]. Patient has been identified by [...] Not applicable Please advise. Rocio Westfall MA [facility] 03-12-2024 Miscellaneous Notes Pharmacy verified in [employer]. Patient has been identified by name and [...] Rocio Westfall MA documented in this encounter [facility] 03-09-2024 Telephone encounter Note Prescription Refill Information [...] Patel MA March 09, 2024 4:57 PM [facility] 03-09-2024 Miscellaneous Notes Prescription Refill Information The [...] 2024 4:57 PM documented in this encounter [facility] 03-05-2024 Telephone encounter Note Patient aware, will buy over the counter. Whti Shay LPN [facility] 03-05-2024 Miscellaneous Notes Patient aware, will buy over the counter. Whit Shay LPN LM for patient to call the office. Whit Shay LPN Let patient know she can try looking for this available over the counter. Looks like she uses the diclofenac gel. Per [facility], Diclofenac Sodium is on backorder unavailable. Please advise. Whit Shay LPN documented in this encounter [facility] 03-05-2024 Telephone encounter Note Pharm[facility] Patient has been identified by [...] 7.9 oz) Please advise. Silvia Trejo MA [facility] 03-05-2024 Miscellaneous Notes Pharmacy [facility] Patient has been identified by [...] Silvia Trejo MA documented in this encounter [facility] 03-02-2024 Telephone encounter Note LM for patient to call the office. Whit Shay LPN [facility] 03-01-2024 Telephone encounter Note Let patient know she can try looking for this available over the counter. Looks like she uses the diclofenac gel. [facility] 03-01-2024 Telephone encounter Note Per [facility], Diclofenac Sodium is on backorder unavailable. Please advise. Whit Shay LPN [facility] 02-07-2024 Telephone encounter Note Pharm[facility] Patient has been identified by [...] 7.9 oz) Please advise. Silvia Trejo MA [facility] 02-07-2024 Miscellaneous Notes Pharmacy verified in Epic [...] Silvia Trejo MA documented in this encounter [facility] 02-07-2024 Telephone encounter Note Prescription Refill Information [...] Prasad MA February 07, 2024 11:36 AM [facility] 02-07-2024 Miscellaneous Notes Prescription Refill Information The [...] 2024 11:36 AM documented in this encounter [facility] 01-11-2024 Telephone encounter Note This was refilled earlier today. Melva Juárez PA-C [facility] 01-11-2024 Miscellaneous Notes This was refilled earlier [...] 2024 2:10 PM documented in this encounter [facility] 01-11-2024 Telephone encounter Note Prescription Refill Information [...] Baltazar MA January 11, 2024 2:10 PM [facility] 01-10-2024 Telephone encounter Note Pharmacy verified in [employer]. Patient has been identified by name and [...] Not applicable Please advise. Rocio Westfall MA [facility] 01-10-2024 Miscellaneous Notes Pharmacy verified in [employer]. Patient has been identified by name and [...] Rocio Westfall MA documented in this encounter [facility] 01-09-2024 Telephone encounter Note Pharmacy verified in [employer]. Patient has been identified by name and [...] Not applicable Please advise. Rocio Westfall MA [facility] 01-09-2024 Miscellaneous Notes Pharmacy verified in [employer]. Patient has been identified by name and [...] Rocio Westfall MA documented in this encounter [facility] 01-09-2024 Telephone encounter Note Prescription Refill Information [...] Shay LPN January 09, 2024 2:38 PM [facility] 01-09-2024 Miscellaneous Notes Prescription Refill Information The [...] 2024 2:38 PM documented in this encounter [facility] 01-09-2024 Telephone encounter Note Please review and advise. [facility] 01-09-2024 Miscellaneous Notes Please review and advise. documented in this encounter [facility] 01-09-2024 Telephone encounter Note Prescription Refill Information [...] Shay LPN January 09, 2024 10:42 AM [facility] 01-09-2024 Miscellaneous Notes Prescription Refill Information The [...] 2024 10:42 AM documented in this encounter [facility] 12-30-2023 Note HNO ID: [id number] Author: JOAQUINA MARTINEZ APRN.TONG SETTER Service: ? Author Type: Nurse Practitioner Type: Progress Notes Filed: 12/30/2023 13:47 Note Text: VIRTUAL VISIT PROGRESS NOTE This is a virtual visit using [employer] Video Visit. It required patient-provider interaction for the medical decision making as documented below. I have communicated my name and active licensure. The patient's identity and physical location were verified at the time of this visit. Either the patient or their legal artists' booking representative has been informed of the risks [...] on file for this visit. Joaquina Rao APRN.[facility] 12-30-2023 History of Presen t illness Narrative VIRTUAL VISIT PROGRESS NOTE This is a virtual visit using [employer] Visit. It required patient-provider interaction for the medical decision making as documented below. I have communicated my name and active licensure. The patient's identity and physical location were verified at the time of this visit. Either the patient or their legal artists' booking representative has been informed of the risks [...] on file for this visit. Joaquina Rao APRN.TONG SETTER documented in this encounter [facility] 12-27-2023 Telephone encounter Note Request completed and faxed. [facility] 12-27-2023 Miscellaneous Notes Request completed and faxed. Type of letter/form/fax request - Home Health Care Orders Form received from [facility] on 12/26/23 floor and placed on MD desk () for completion. Completed form needs to be faxed to [phone]. Route to [place] when form completed for processing documented in this encounter [facility] 12-27-2023 Telephone encounter Note Type of letter/form/fax request - Home Health Care Orders Form received from [facility] on 12/26/23 floor and placed on MD desk () for completion. Completed form needs to be faxed to [phone]. Route to [place] when form completed for processing [facility] 12-27-2023 Telephone encounter Note Prescription Refill Information [...] Contreras LPN December 27, 2023 10:41 AM [facility] 12-27-2023 Miscellaneous Notes Prescription Refill Information The [...] 2023 10:41 AM documented in this encounter [facility] 12-14-2023 Telephone encounter Note Prescription Refill Information [...] Shay LPN December 14, 2023 9:21 AM [facility] 12-14-2023 Miscellaneous Notes Prescription Refill Information The [...] 2023 9:21 AM documented in this encounter [facility] 12-14-2023 Telephone encounter Note Request completed and faxed. [facility] 12-14-2023 Miscellaneous Notes Request completed and faxed. Done. Type of letter/form/fax request - Home Health Care Orders Form received from [facility] on 12/12/23 floor and placed on MD desk () for completion. Completed form needs to be faxed to [phone]. Route to [place] when form completed for processing documented in this encounter [facility] 12-13-2023 Telephone encounter Note Done. [facility] 12-13-2023 Telephone encounter Note Type of letter/form/fax request - Home Health Care Orders Form received from [facility] on 12/12/23 floor and placed on MD desk () for completion. Completed form needs to be faxed to [phone]. Route to [place] when form completed for processing [facility] 12-08-2023 Telephone encounter Note Home care Certification Form 485 received from [facility]. For cert dates 11/25/23 to 01/23/24 that were signed on 12/06/23. Recertification Patient's home health 485 form / care plan for stated certification period reviewed and signed. Relevant medical records were reviewed. No changes were indicated [facility] 12-08-2023 Miscellaneous Notes Home care Certification Form 485 received from [facility]. For cert dates 11/25/23 to 01/23/24 that were signed on 12/06/23. Recertification Patient's home health 485 form / care plan for stated certification period reviewed and signed. Relevant medical records were reviewed. No changes were indicated documented in this encounter [facility] 12-06-2023 Telephone encounter Note Request completed and faxed. [facility] 12-06-2023 Miscellaneous Notes Request completed and faxed. Done. Type of letter/form/fax request - Home Health Care Orders Plan of Care Certification Period-11/25/23 to 01/23/24 Form received from [facility] on 12/01/23 floor and placed on MD desk () for completion. Completed form needs to be faxed to [phone]. Route to [place] when form completed for processing documented in this encounter [facility] 12-06-2023 Telephone encounter Note Done. [facility] 12-06-2023 Telephone encounter Note Type of letter/form/fax request - Home Health Care Orders Plan of Care Certification Period-11/25/23 to 01/23/24 Form received from [facility] on 12/01/23 floor and placed on MD desk () for completion. Completed form needs to be faxed to [phone]. Route to [place] when form completed for processing [facility] 11-28-2023 Telephone encounter Note [facility] Patient has been identified by [...] 7.9 oz) Please advise. Silvia Trejo MA T [facility] 11-28-2023 Miscellaneous Notes Pharmacy [facility] Patient has been identified by [...] Silvia Trejo MA documented in this encounter [facility] 11-14-2023 Telephone encounter Note Pharmacy verified in [employer]. Patient has been identified by name and [...] Not applicable Please advise. Rocio Westfall MA [facility] 11-14-2023 Miscellaneous Notes Pharmacy verified in [employer]. Patient has been identified by name and [...] Rocio Westfall MA documented in this encounter [facility] 11-14-2023 Telephone encounter Note Request completed and faxed. [facility] 11-14-2023 Miscellaneous Notes Request completed and faxed. Done. Type of letter/form/fax request - Home Health Care Orders Form received from [facility] on 11/13/23 floor and placed on MD desk () for completion. Completed form needs to be faxed to . Route to [place] when form completed for processing documented in this encounter [facility] 11-14-2023 Telephone encounter Note Done. [facility] 11-14-2023 Telephone encounter Note Type of letter/form/fax request - Home Health Care Orders Form received from [facility] on 11/13/23 floor and placed on MD desk () for completion. Completed form needs to be faxed to . Route to [place] when form completed for processing [facility] 11-12-2023 Telephone encounter Note Prescription Refill Information [...] Shay LPN November 12, 2023 10:33 AM [facility] 11-12-2023 Miscellaneous Notes Prescription Refill Information The [...] 2023 10:33 AM documented in this encounter [facility] 11-02-2023 Telephone encounter Note Prescription Refill Information [...] Prasad MA November 02, 2023 8:23 AM [facility] 11-02-2023 Miscellaneous Notes Prescription Refill Information The [...] 2023 8:23 AM documented in this encounter [facility] 10-28-2023 Telephone encounter Note Request completed and faxed. [facility] 10-28-2023 Miscellaneous Notes Request completed and faxed. Done. Type of letter/form/fax request - Home Health Care Orders Form received from [facility] on 10/27/23 floor and placed on MD desk () for completion. Completed form needs to be faxed to [phone]. Route to [place] when form completed for processing documented in this encounter [facility] 10-28-2023 Telephone encounter Note Done. [facility] 10-28-2023 Telephone encounter Note Type of letter/form/fax request - Home Health Care Orders Form received from [facility] on 10/27/23 floor and placed on MD desk () for completion. Completed form needs to be faxed to [phone]. Route to MA when form completed for processing [facility] 10-24-2023 Telephone encounter Note Noted. Melva Juárez PA-C [facility] 10-24-2023 Miscellaneous Notes Noted. Melva Juárez PA-C Summary: Patient Update [facility] called to report that patient cancelled her PT appointment today. documented in this encounter [facility] 10-22-2023 Telephone encounter Note Summary: Patient Update [facility] called to report that patient cancelled her PT appointment today. [facility] 10-18-2023 Telephone encounter Note Request completed and faxed. [facility] 10-18-2023 Miscellaneous Notes Request completed and faxed. Type of letter/form/fax request - Home Health Care Orders Form received from [facility] on 10/18/23 floor and placed on MD desk () for completion. Completed form needs to be faxed to [phone]. Route to MA when form completed for processing documented in this encounter [facility] 10-18-2023 Telephone encounter Note Type of letter/form/fax request - Home Health Care Orders Form received from [facility] on 10/18/23 floor and placed on MD desk () for completion. Completed form needs to be faxed to [phone]. Route to MA when form completed for processing [facility] 10-16-2023 Hospital Discharg e instructions Janneth Hartley PA-C - 10/16/2023 9:52 PM EDT Continue take your home medications as prescribed, and use lidocaine patches. Do the incentive spirometer for 10 breaths every 2 hours while awake. Return to ER if experiencing any worsening symptoms The following attachments cannot be sent through Care Everywhere.Preventing Falls ED ([place])Acute Pain, Adult ([place])documented in this encounter [facility] 10-16-2023 Emergency department Note Emergency Department Encounter [facility] ED Patient: Gonzalo Deluca : 1955 [...] major depression (HCC) Sciatica Thoracic compression fracture ([facility]) Vitamin D deficiency Past Surgical History: Procedure [...] min Stress: No Stress Concern Present (09/19/2023) [place] of Occupational Health - Occupational Stress Questionnaire Feeling of Stress : Only a little Social Connections: Socially Isolated (09/19/2023) Social Connection and Isolation Panel [NHANES] Frequency of Communication with Friends and Family: Three times a week Frequency of Social Gatherings with Friends and Family: Three times a week Attends Evangelical Services: Never Active Member of Clubs or [...] Department Physician in the absence of a waiter/waitress dining car. Please see Epiphany for interpretation of EKG. [...] PM PATIENT REFERRED TO: Herminia Case MD [address] [facility] [address] Call [facility] [address] [facility] [phone] Go to If symptoms worsen [...] [employer] Janneth Hartley PA-C 10/16/232151 documented in this encounter [facility] 10-16-2023 Physician Emergency department Note Emergency Department Encounter [facility] ED Patient: Gonzalo Deluca : 1955 Date of Evaluation: 10/16/2023 ED LINDA Provider: aJnneth Hartley PA-C Patient seen independently within my [...] (HCC) Vitamin D deficiency Past Surgical History: Procedure [...] min Stress: No Stress Concern Present (09/19/2023) [place] of Occupational Health - Occupational Stress Questionnaire Feeling of Stress : Only a little Social Connections: Socially Isolated (09/19/2023) Social Connection and Isolation Panel [NHANES] Frequency of Communication with Friends and Family: Three times a week Frequency of Social Gatherings with Friends and Family: Three times a week Attends Evangelical Services: Never Active Member of Clubs or [...] Department Physician in the absence of a waiter/waitress dining car. Please see Epiphany for interpretation of EKG. [...] PATIENT REFERRED TO: Herminia Case MD [address] [place] [id number] Call [facility] ED [address] [place] [phone] Go to If symptoms worsen DISCHARGE [...] PA-C [employer] Janneth Hartley PA-C 10/16/232 [facility] 10-11-2023 Telephone encounter Note Home care Certification Form 485 received from [facility]. For cert dates 09/26/23 to 11/24/23 that were signed on 10/11/23. New Certification Patient's home health 485 form / care plan for stated certification period reviewed and signed. Relevant medical records were reviewed. No changes were indicated [facility] 10-11-2023 Miscellaneous Notes Home care Certification Form 485 received from [facility]. For cert dates 09/26/23 to 11/24/23 that were signed on 10/11/23. New Certification Patient's home health 485 form / care plan for stated certification period reviewed and signed. Relevant medical records were reviewed. No changes were indicated documented in this encounter [facility] 10-11-2023 Telephone encounter Note Request completed and faxed. [facility] 10-11-2023 Miscellaneous Notes Request completed and faxed. Done. Type of letter/form/fax request - Home Health Care Orders Form received from [facility] on 10/06/23 floor and placed on MD desk () for completion. Completed form needs to be faxed to [phone]. Route to MA when form completed for processing documented in this encounter [facility] 10-11-2023 Telephone encounter Note Done. [facility] 10-10-2023 Telephone encounter Note Type of letter/form/fax request - Home Health Care Orders Form received from [facility] on 10/06/23 floor and placed on MD desk () for completion. Completed form needs to be faxed to [phone]. Route to MA when form completed for processing [facility] 10-06-2023 Note HNO ID: [id number] Author: LALA MOLINA LPN Service: ? Author Type: LICENSED NURSE Type: Progress Notes Filed: 10/06/2023 12:12 Note Text: This encounter was opened in error. [facility] 10-06-2023 History of Presen t illness Narrative This encounter was opened in error. documented in this encounter [facility] 10-06-2023 Telephone encounter Note [facility] is calling Herminia Case MD today to report patient's home health care physical therapy will be delayed a week as patient informed them that she is not feeling well.. Patient has been identified by name and birthdate. Duration of symptoms: N/A Person calling: caregiver: [facility] Call patient at: at home [phone] (home) [phone] (cell) Was an appointment scheduled: No Closing statement: Jessica Jay [facility] Work Phone: 10-06-2023 Miscellaneous Notes [facility] is calling Herminia Case MD today to report patient's home health care physical therapy will be delayed a week as patient informed them that she is not feeling well.. Patient has been identified by name and birthdate. Duration of symptoms: N/A Person calling: caregiver: [facility] Call patient at: at home [phone] (home) [phone] (cell) Was an appointment scheduled: No Closing statement: Jessica Jay documented in this encounter [facility] 09-22-2023 Miscellaneous Notes Patient Choice Patient Name: GONZALO DELUCA Date of : 1955 All Providers Sent Referral Name: [facility] Phone: [phone] [address]: [address] [place] [address] The patient is Moderately Unstable - Medium risk of patient condition declining or worsening The patient's goals for the shift include rest The clinical goals for the shift include safety Received message from Reny Telles APRN. Daughter Karishma requesting information on resources available to receive additional help in the home. Placed call to [phone]. Left voice mail and return call back [...] PT recommends return home with home care. editorial assistant following. Currently on 3 liters oxygen; wears [...] and agreeable to SN, PT services with [facility]. Care Types: [...] is noted as yes - consider a AIRCRAFT ENGINEER evaluation once the patient returns home. START PATIENT REGISTRATION INFORMATION Order Information Order Signing Physician: Nickolas Rivera MD Service Ordered RN ?: Yes Service Ordered PT ?: Yes Service Ordered OT ?: No Service Ordered ST ?: No Service Ordered AIRCRAFT ENGINEER?:No Service Ordered MIXER ATTENDANT?: No Following Physician: HERMINIA CASE MD Following Physician Overseeing Physician: HERMINIA CASE MD (Required for Residents only) Agreeable to Follow? Yes Date/Time of Call 09/21/23 2:04 PM, Spoke with: yes per call back received from office . Care Coordination Same Day SOC?: No Primary Care Physician: HERMINIA CASE MD Primary Care Physician Primary Care Physician Address: [address] [place] [id number] Visit Instructions: N/A Service Discharge Location Type: Home with Home Health Care Service Facility Name: N/A Service Floor Facility: N/A Service Room No: N/A Demographics Patient Last Name: Yosi Patient First Name: Gonzalo Language/Communication Barrier: DAUGHTER KARISHMA IS CONTACT Service Address: [facility] Ramesh Bañuelos [facility] [place] Service ZIP: [address] Service Other phone numbers: Telephone Information: Emergency Contact: Extended Emergency Contact Information Primary Emergency Contact: Karishma Deluca Address: [facility] [place] [address] [facility] Mobile Relation: Daughter Secondary Emergency Contact: Jace Deluca Mobile Relation: Son Admission Information Admit Date: 09/19/2023 Patient status at discharge: Inpatient Admitting Diagnosis: Near syncope [R55] Closed head injury, initial encounter [S09.90XA] Fall, initial encounter [W19.XXXA] Compression fracture of T7 vertebra, initial encounter (HCC) [S22.060A] Compression fracture of T8 vertebra, initial encounter ([facility]) [S22.060A] Compression fracture of T5 vertebra, initial encounter ([facility]) [S22.050A] Compression fracture of L1 vertebra, initial encounter ([facility]) [S32.010A] Caregiver Information Caregiver First Name: NA Caregiver Last Name: NA Caregiver Relationship to Patient NA Caregiver Phone Number: NA Caregiver Notes: N/A [employer] List No END PATIENT REGISTRATION INFORMATION Pt [...] diagnoses: Discharge Date: TBD Referral Source-PACC: (Hospital/Unit): [facility] / [id number]/[id number] A End PACC Note The [...] Limits Permission given to speak with patient artists' booking representative/caregiver as indicated: Yes Confirmation of Payer with patient/family: Yes Payer Name: [facility] Dual Complete : No Confirmation of [...] Daily Living Prescription Coverage: Yes Pharmacy Used: [facility] in [place] Medication Management: Independent Transportation/Shopping: Transportation Mode: Car [...] to be discharged to: Home with possible [facility] Discharge Planning Actions: Continue to follow Patient's [...] home with possible HHC at this time. vending manager to follow and assist as needed. [...] barriers include . documented in this encounter [facility] 09-22-2023 Note Formatting of this n ote might be different from the original. Patient Choice Patient Name: GONZALO DELUCA Date of : 1955 All Providers Sent Referral Name: [facility] Phone: [phone] Address: [address] [place] [address] [facility] 09-22-2023 Note Formatting of this n ote might be different from the original. Patient Choice Patient Name: GONZALO DELUCA Date of : 1955 All Providers Sent Referral Name: [facility] Phone: [phone] Address: [address] [place] [address] [facility] 09-22-2023 Note [facility] 09-22-2023 History of Presen t illness Narrative Patient chart is reviewed. Currently rounding. Full note to follow. Hospitalist Progress Note 09/21/2023 Subjective: Admit Date: 09/19/2023 PCP: HERMINIA CASE MD Room#: B2261/B2261 A BRIEF HOSPITAL COURSE: Admitted for syncopal [...] D deficiency LABS: CBC: Recent Labs 09/19/23170609/19/23 1754 09/20/2362609/21/23 0427 WBC 19.5* -- 10.9* 9.4 RBC 4.18 -- 3.64* 3.51* HGB 12.7 13.4 11.0* 10.6* HCT 39.6 -- 34.8* 33.9* MCV 94.7 -- 95.6 96.6 RDW 13.0 -- 12.9 13.2 PLT 339 -- 243 217 BMP: Recent Labs 09/19/23 17009/20/2362609/21/23 0427 NA 140 137 139 K 2.3* 3.1* [...] appreciated. -replace K - Pt/OT- Home with HHC. - DC home tomorrow if OK with consults. - am labs, replace lytes prn - PT/OT/CM/SW - delirium precautions: increase activity - DVT prophylaxis: enoxaparin and encourage ambulation Advance Directive: Full Code Anticipated Discharge Extended Emergency Contact Information Primary Emergency Contact: Karishma Deluca Address: [address] [place] [address] [place] [address] [facility] Mobile Relation: Daughter Secondary Emergency Contact: Jace Deluca Mobile Relation: Son Nickolas Rivera MD Division of Hospitalist Medicine [facility] Images from the original note were not included. PHYSICAL THERAPY [facility] Initial Evaluation Name/MRN: Gonzalo Deluca ([id number]) Evaluation Date: 09/21/2023 Date of : 1955 [...] Acute exacerbation of chronic obstructive pulmonary disease ([facility]) 04/12/2018 Allergic rhinitis Arthritis Asthma Bronchitis Cancer ([facility]) ([facility]) skin Cervical cancer ([facility]) ([facility]) Chest pain COPD (chronic obstructive pulmonary disease) ([facility]) USE OXYGEN 3 L AT NIGHT DDD (degenerative disc disease), cervical Defect, retina, with detachment right DJD (degenerative joint disease), lumbar Emphysema lung ([facility]) Former smoker Hematuria SCHEDULED FOR THE PROCEDURE /SURGERY ON 02/11/2017 Hypokalemia Lung nodules Near syncope 09/19/2023 Osteoporosis Palpitations Pneumonia Recurrent major depression ([facility]) Sciatica Thoracic compression fracture ([facility]) Vitamin D deficiency Past Surgical History: Past Surgical History: Procedure Laterality Date CYSTOSCOPY 01/12/2017 OFFICE PROCEDURE CYSTOSCOPY 02/11/2017 C&P bladder biopsy EYE SURGERY detached retina 1994 HYSTERECTOMY 11/06/2019 ABDOMINAL RADICAL HYSTERECTOMY WITH BSO AND PELVIC LYMPH; DR[facility] ZIYAD [facility]ISCAL [facility] OTHER SURGICAL HISTORY Left 12/19/2019 Med Port POWER Regular Size OTHER SURGICAL HISTORY Left 11/07/2022 Percutaneous skeltal fixation femoral fracture TUBAL LIGATION 1992 Admission Diagnosis: Patient Active Problem List Diagnosis Date Noted Severe malnutrition ([facility]) ([facility]) 09/20/2023 Falls frequently 09/20/2023 Unintentional weight loss 09/20/2023 Debility 09/20/2023 PFO (patent foramen ovale) 09/20/2023 Lumbar compression fracture, closed, initial encounter ([facility]) 02/13/2023 Nondisplaced fracture of neck of left femur ([facility]) 11/06/2022 Other specified complication of vascular prosthetic devices, implants and grafts, initial encounter ([facility]) 08/06/2021 Poor venous access 12/19/2019 H/O: CVA (cerebrovascular accident) 12/14/2019 Malignant neoplasm of exocervix ([facility]) 11/07/2019 S/P hysterectomy 11/07/2019 PNA (pneumonia) 08/02/2019 Leukocytosis 04/13/2018 Shortness of breath 04/13/2018 DDD (degenerative disc disease), cervical 04/12/2018 Recurrent major depression (HCC) 04/12/2018 Chronic back pain 04/10/2017 COPD (chronic obstructive pulmonary disease) (HCC) 04/10/2017 Pulmonary nodule 04/10/2017 Sciatica 04/10/2017 Supplemental [...] Responsibilities: Independent Receives Help From: Family Active Architectural Engineering Teacher: N/A Prior Level of Function ADL Assistance: [...] Mobility Raw Score (No Stairs) : 14 -[facility] Plan Pt would benefit from skilled [...] 906 (co eval with OT) Time Out 0927 Minutes 20 Timed Code Treatment Minutes: 8 Minutes (x1 ther act) JEFFERSON Galdamez Patient's Physical Therapy Plan of Care supervision is transferred to a [facility] Therapy Services Physical Therapist. Goals and/or treatment plan was established in collaboration with patient/family/other representatives. Images from the original note were not included. OCCUPATIONAL THERAPY [facility] Initial Evaluation Name/MRN: Gonzalo Deluca ([id number]) Evaluation Date: 09/21/2023 Date of : 1955 [...] Acute exacerbation of chronic obstructive pulmonary disease ([facility]) 04/12/2018 Allergic rhinitis Arthritis Asthma Bronchitis Cancer ([facility]) ([facility]) skin Cervical cancer ([facility]) ([facility]) Chest pain COPD (chronic obstructive pulmonary disease) ([facility]) USE OXYGEN 3 L AT NIGHT DDD (degenerative disc disease), cervical Defect, retina, with detachment right DJD (degenerative joint disease), lumbar Emphysema lung ([facility]) Former smoker Hematuria SCHEDULED FOR THE PROCEDURE /SURGERY ON 02/11/2017 Hypokalemia Lung nodules Near syncope 09/19/2023 Osteoporosis Palpitations Pneumonia Recurrent major depression ([facility]) Sciatica Thoracic compression fracture ([facility]) Vitamin D deficiency Past Surgical History: Past Surgical History: Procedure Laterality Date CYSTOSCOPY 01/12/2017 OFFICE PROCEDURE CYSTOSCOPY 02/11/2017 C&P bladder biopsy EYE SURGERY detached retina 1994 HYSTERECTOMY 11/06/2019 ABDOMINAL RADICAL HYSTERECTOMY WITH BSO AND PELVIC LYMPH; DR[facility] Z[facility]Z [facility] OTHER SURGICAL HISTORY Left 12/19/2019 Med Port POWER Regular Size OTHER SURGICAL HISTORY Left 11/07/2022 Percutaneous skeltal fixation femoral fracture TUBAL LIGATION 1992 Admission Diagnosis: Patient Active Problem List Diagnosis Date Noted Severe malnutrition ([facility]) ([facility]) 09/20/2023 Falls frequently 09/20/2023 Unintentional weight loss 09/20/2023 Debility 09/20/2023 PFO (patent foramen ovale) 09/20/2023 Lumbar compression fracture, closed, initial encounter ([facility]) 02/13/2023 Nondisplaced fracture of neck of left femur ([facility]) 11/06/2022 Other specified complication of vascular prosthetic devices, implants and grafts, initial encounter ([facility]) 08/06/2021 Poor venous access 12/19/2019 H/O: CVA (cerebrovascular accident) 12/14/2019 Malignant neoplasm of exocervix ([facility]) 11/07/2019 S/P hysterectomy 11/07/2019 PNA (pneumonia) 08/02/2019 Leukocytosis 04/13/2018 Shortness of breath 04/13/2018 DDD (degenerative disc disease), cervical 04/12/2018 Recurrent major depression ([facility]) 04/12/2018 Chronic back pain 04/10/2017 COPD (chronic obstructive pulmonary disease) ([facility]) 04/10/2017 Pulmonary nodule 04/10/2017 Sciatica 04/10/2017 Supplemental [...] Responsibilities: Independent Receives Help From: Family Active Architectural Engineering Teacher: N/A Prior Level of Function ADL Assistance: [...] Individual Co-treatment Time In 0907 Time Out 09 co-eval Minutes 20 Roopa More OT Patient's Occupational Therapy Plan of Care supervision is transferred to a [facility] Therapy Services Occupational Therapist. Goals and/or treatment plan was established in collaboration with patient/family/other representatives. [facility] Geriatric Medicine Inpatient Consult Service Admission Date: 09/19/2023 Assessment Principal Problem: Falls frequently Active Problems: Severe malnutrition (CMS/HCC) (HCC) Unintentional weight loss Debility Chronic back pain COPD (chronic obstructive pulmonary disease) ([facility]) Supplemental oxygen dependent Plan Polypharmacy (History per [...] at [facility] for more in depth [...] depression, Vit D deficiency, Osteoporosis presented to [facility] on 09/19/23 for fall. Found to have [...] Intake/Output Summary (Last 24 hours) at 09/21/2023 0912 Last data filed at 09/21/2023 0218 Gross [...] 650 mg, 650 mg, Oral, TID, Saad Telles APRN - TONG SETTER, 650 mg at 09/21/23821 buPROPion XL (Wellbutrin XL) 24 hr tablet 150 mg, 150 mg, Oral, Daily, Lauren Serna MD, 150 mg at 09/21/23821 busPIRone (Buspar) tablet 15 mg, 15 mg, Oral, TID, Saad Telles APRN - TONG SETTER, 15 mg at 09/21/23821 calcitonin (Miacalcin) injection 50 Units, 50 Units, IntraMUSCular, Daily, Lauren Serna MD enoxaparin (Lovenox) syringe 40 mg, 40 mg, SubCUTAneous, Daily, Lauren Serna MD, 40 mg at 09/21/23821 lidocaine (LMX) 4 % cream, , Topical, PRN, Lauren Serna MD melatonin tablet 3 mg, 3 mg, Oral, Nightly PRN, Saad Telles APRN - TONG SETTER, 3 mg at 09/20/232121 mirtazapine (Remeron) tablet 15 mg, 15 mg, Oral, Nightly, Saad Telles APRN - TONG SETTER, 15 mg at 09/20/232122 mometasone-formoterol (Dulera 200) 200-5 MCG/ACT inhaler 2 puff, 2 puff, Inhalation, BID, Lauren Serna MD, 2 puff at 09/21/23831 montelukast (Singulair) tablet 10 mg, 10 mg, Oral, Nightly, Lauren Serna MD, 10 mg at 09/20/232121 naloxone (Narcan) injection 0.4 mg, 0.4 mg, IntraVENous, q5 min PRN, Lauren Serna MD nicotine (Nicoderm, Step 2) 14 MG/24HR patch 1 patch, 1 patch, TransDERmal, Daily, Nickolas Rivera MD, 1 patch at 09/20/23 1601 ondansetron [...] tablet 30 mg, 30 mg, Oral, Daily, Saad Ezdariene, 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 - TONG SETTER, 30 mg at 09/21/23 0822 perflutren protein A microsphere (Optison) 3 mL in sodium chloride (PF) 0.9 % 10 mL IV syringe, 0-10 mL, IntraVENous, Once PRN, Lauren Serna MD polyethylene glycol (PEG) 3350 (Miralax) packet 17 g, 17 g, Oral, Daily PRN, Lauren Serna MD potassium chloride CR (Klor-Con M10) ER tablet 40 mEq, 40 mEq, Oral, BID, Nickolas Rivera MD QUEtiapine (SEROquel) tablet 100 mg, 100 mg, Oral, Nightly, Lauren Serna MD, 100 mg at 09/20/23 2122 tiotropium (Spiriva Respimat) 2.5 MCG/ACT inhaler 2 puff, 2 puff, Inhalation, Daily, Nickolas Rivera MD, 2 puff at 09/21/23 0825 Physical [...] 1.017 09/21/2023 Lab Results Component Value Date [id number] 09/21/2023 Lab Results Component Value Date [...] (gastrocnemius) Fluid Accumulation: No significant fluid accumulation Personal Investment Adviser Strength: Not Performed Nutrition Assessment: 67 y.o. [...] (kg): 52 kg Total Energy Requirements (kcals/day): 6711-0804 (28-35) Weight Used for Protein Requirements: Current [...] (140 lb) 06/09/20 63.5 kg (140 lb) 12/03/20 61.7 kg (136 lb) 02/08/20 61.7 kg [...] RD records) % Weight Change (Calculated): -8 [place] Body Weight (lbs) (Calculated): 125 lbs [place] Body Weight (Kg) (Calculated): 57 kg % [place] Body Weight (Calculated): 92 % BMI (kg/m2) [...] Oral Nutrition Supplement Mara Corona RD Contact: *[phone] or via Secure Chat Hospitalist Progress Note [...] 09/19/2023 Osteoporosis Palpitations Pneumonia Recurrent major depression ([facility]) Sciatica Thoracic compression fracture ([facility]) Vitamin D deficiency LABS: CBC: Recent Labs 09/19/23170609/19/23 1754 09/20/23 0627 WBC 19.5* -- 10.9* RBC 4.18 -- 3.64* HGB 12.7 13.4 11.0* HCT 39.6 -- 34.8* MCV 94.7 -- 95.6 RDW 13.0 -- 12.9 PLT 339 -- 243 BMP: Recent Labs 09/19/23170609/20/23 06 NA 140 137 K 2.3* 3.1* CL 93* 99 CO2 35* 33* BUN 36* 28* CREATININE 1.33* 0.73 GLUCOSE 99 94 CALCIUM 9.0 8.5 ANIONGAP 13 5 LIVER PROFILE: Recent Labs 09/19/231706 AST 35 ALT 38* BILITOT 0.5 ALKPHOS 115 PROT 7.1 PT/INR: No results for input(s): "PROTIME", "INR" in the last 72 hours. CARDIAC ENZYMES: Recent Labs 09/19/23170609/19/23 2319 09/20/23 0627 TROPONINI 0.025 0.031 0.022 [...] Emergency Contact Information Primary Emergency Contact: YosiKarishma Address: [address] [place] [address] [place] [address] [facility] Mobile Relation: Daughter Secondary Emergency Contact: Jace Deluca Mobile Relation: Son Nickolas Rivera MD Division of Hospitalist Medicine [facility] Images from the original note were not included. PHYSICAL THERAPY [facility] Name/MRN: Gonzalo J Yosi ([id number]) Date: 09/20/2023 PT orders received and chart reviewed. Pt with multiple, severe compresssion fractures of the T and L spine. Ortho consulted. Will await Ortho POC prior to initiating therapy Oseas Lima PT Images from the original note were not included. OCCUPATIONAL THERAPY [facility] Name/MRN: Gonzalo J Yosi ([id number]) Date: 09/20/2023 OT orders received and chart reviewed. Pt with multiple, severe compresssion fractures of the T and L spine. Ortho consulted. Will await Ortho POC prior to initiating therapy. Roopa More OT documented in this encounter [facility] 09-22-2023 Plan of care note The patient is Moderately Unstable - Medium risk of patient condition declining or worsening The patient's goals for the shift include rest The clinical goals for the shift include safety [facility] 09-21-2023 Telephone encounter Note Called and spoke with iVvian from [place] They just need to confirm Dr. Case will follow for For homecare They Don't need orders. Verbal given now. [facility] Work Phone: 09-21-2023 Miscellaneous Notes Called and spoke with Vivian from [place] They just need to confirm Dr. Case will follow for For homecare They Don't need orders. Verbal given now. Orders or will Dr. Case follow? She will follow. We don't typically give home care orders. Melva Juárez PA-C Ashley from [facility] Patient currently admitted for falls Need orders to follow for Home Care Call back number: [phone] documented in this encounter [facility] 09-21-2023 Hospital Discharg e instructions Freddy Black MD - 09/21/2023 4:28 PM EDT Images from the original note were not included. You have been evaluated in the hospital for a behavioral health problem. I recommend you contact the following mental health provider(s) to schedule an appointment as soon as possible: [x] [facility]; [facility] (Psychiatry, Counseling,Addiction Services); [address], [address] [address]; [x] [facility]; (Psychiatry, Counseling, Addiction Services); [address], [address], [facility] [address]; [x] [facility]; (Psychiatry, Counseling); [address] [place] [address]; [] [facility]; (Psychiatry, Counseling); [address], [address], [place] [address]; [] [facility]; (Psychiatry, Counseling); [address] [place] [address]; [] [facility]; (Psychiatry, Counseling); [address], [address], [place] [address]; [] [facility]; (Psychiatry, Counseling); [address], [address], [place] [address]; [x] [facility] (Psychiatry, Counseling, Case Management); [address]. [address], [place] [address]; ; for initial assessments you may call or walk-in on Mondays and Tuesdays at 8:00 AM [] [facility] (Psychiatry, Counseling, Case Management); [address] [place] [address]; ; for initial assessments you may call or walk-in on at noon [] [facility] (Psychiatry, Counseling, Case Management); [address] [place] [address]; [x] [facility] (Psychiatry, Counseling, Case Management, Addiction Services); [address] [place] [address]; [x] [facility] (Psychiatry, Counseling, Case Management, Addiction Services); [address], [place] [address]; [x] [facility] (Psychiatry, Counseling, Case Management, Addiction Services); [address], [address], [place] [address]; [] [facility] (Psychiatry, Counseling); [address] [place] [address]; [] [facility] (Psychiatry, Counseling, Case Management - has evening and weekend hours); [address] [place] [address]; If you or someone you know is struggling or in crisis, help is available. Call or text 988 or chat [email or web address]. -OR- Call the [facility] Crisis Hotline at [phone] -OR- Visit [facility], in person, at [address] [place] [address]; You should return to the Emergency Department or call 911 immediately if your symptoms worsen, new symptoms [...] Code Advance Directives: N Admitting Physician: Nickolas Rivera MD PCP: HERMINIA CASE MD Discharging Nurse: Discharging Hospital Unit/Room#: B2-261/B2-261 A Discharging Unit Phone Number: Emergency Contact: Extended Emergency Contact Information Primary Emergency Contact: Karishma Deluca Address: [address] [place] [address] [place] [address] [facility] Mobile Relation: Daughter Secondary Emergency Contact: Jace [...] prosthetic devices, implants and grafts, initial encounter ([facility]) Nondisplaced fracture of neck of left femur (HCC) Lumbar compression fracture, closed, initial encounter (HCC) Severe malnutrition (CMS/HCC) (HCC) Unintentional weight loss [...] (115 lb) Mental Status: {SHAMA Patient Mental Status:70968} IV Access: {SHAMA IV Access:12366} Nursing Mobility/ADLs: Walking {YANETH ADL:::"Independent"} Transfer {YANETH ADL:::"Independent"} Bathing {YANEHT ADL:::"Independent"} Dressing {YANETH ADL:::"Independent"} Toileting {YANETH ADL:::"Independent"} Feeding {YANETH ADL:::"Independent"} Engine Specialist {YANETH ADL:::"Independent"} Med Delivery {yes/no:80061} Wound Care Documentation and Therapy: Wound/Incision 05/21/22 Traumatic Eye Right (Active) Number of days: 487 Wound/Incision 05/21/22 Traumatic Wrist Left;Posterior (Active) Number of days: 487 Wound/Incision 11/07/22 Incision Leg Anterior;Left;Proximal;Upper (Active) Number of days: 318 Elimination: Continence: Bowel: {yes/no:14332} Bladder: {yes/no:95255} Urinary Catheter: {SHAMA Urinary Catheter:07648} Colostomy/Ileostomy/Ileal Conduit: {YES / NO:} Date of Last BM: Intake/Output Summary (Last 24 hours) at 09/21/2023 1408 Last data filed at 09/21/2023 0218 Gross per 24 hour Intake -- Output 800 ml Net -800 ml I/O last 3 completed shifts: In: 752.1 (14.4 mL/kg) [I.V.:52.1 (1 mL/kg); IV Piggyback:700] Out: 800 (15.3 mL/kg) [Urine:800 (0.4 mL/kg/hr)] Weight: 52.2 kg Safety Concerns: {SHAMA Safety Concerns:42235} Impairments/Disabilities: {SHAMA Impairments/Disabilities:98390} Nutrition Therapy: Current Nutrition Therapy: {SHAMA Diet List:65317} Routes of Feeding: {routes of feedin} Liquids: {liquid consistency:15191} Daily Fluid Restriction: {daily fluid restriction:57154} Last Modified Barium Swallow with Video (Video Swallowing Test): {done not done:67200} Treatments at the Time of Hospital Discharge: Respiratory Treatments: Oxygen Therapy: {Therapy; copd oxygen:97467} Ventilator: {SHAMA Ventilator:46326} Rehab Therapies: {GEN THERAPY DISCIPLINE SCAL:6788617} Weight Bearing Status/Restrictions: {POD WEIGHT BEARIN} Other Medical Equipment (for information only, NOT a DME order): {Assistive Devices DME:52841} Other Treatments: Patient's personal belongings (please select all that are sent with patient): {SHAMA Patient Belongings:93217} RN SIGNATURE: {E-signature:66748} CASE MANAGEMENT/SOCIAL WORK SECTION Inpatient Status Date: Discharging to Facility/ Agency Name: [facility] Address: [address] [place] [address] \\ Dialysis Facility (if applicable) Name: Address: Dialysis Schedule: Phone: Fax: Senior Media Director/Rug Renovator signature: {E-signature:41777} PHYSICIAN SECTION Name: Gonzalo Reyesbenji Prognosis: {Rehab Prognosis:03608} Condition at Discharge: {Patient Condition:46675} Rehab Potential (if transferring to Rehab): {Rehab Prognosis:84559} Recommended Labs or Other Treatments After Discharge: The individual is being admitted to a nursing facility directly from an [facility] or a unit of a [facility] that is not operated by or licensed by [facility] under section 5119.14 or 5160-3-15.1 5 The individual requires the level of services provided by a nursing facility for the condition for which he or she was treated in the hospital and, Physician Certification: I certify the above information and transfer of Gonzalo Deluca is necessary for the continuing treatment of the diagnosis listed and that she requires {SHAMA Level of Care:35723} for {greater less than:52928} 30 days. Update Admission H&P: {SHAMA Changes in H&P:67698} PHYSICIAN SIGNATURE: {E-signature:92963} documented in this encounter [facility] 09-21-2023 Note Formatting of this n ote might be different from the original. Received message from Reny Telles APRN. Daughter Karishma requesting information on resources available to receive additional help in the home. Placed call to [phone]. Left voice mail and return call back number. TCC is not here tomorrow -plan to return on Tuesday09/23/23. Made referral to [facility] per Reny Telles APRN. [facility] 09-21-2023 Note Formatting of this n ote might be different from the original. Received message from Reny Telles APRN. Daughter Karishma requesting information on resources available to receive additional help in the home. Placed call to [phone]. Left voice mail and return call back number. [facility] is not here tomorrow -plan to return on Tuesday09/23/23. Made referral to [facility] per Reny Telles APRN. 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 Initial presentation significant for hypokalemia and MARIA. [...] 04/12/2018 Allergic rhinitis Arthritis Asthma Bronchitis Cancer ([facility]) ([facility]) skin Cervical cancer ([facility]) ([facility]) Chest pain COPD (chronic obstructive pulmonary disease) ([facility]) USE OXYGEN 3 L AT NIGHT DDD (degenerative disc disease), cervical Defect, retina, with detachment right DJD (degenerative joint disease), lumbar Emphysema lung ([facility]) Former smoker Hematuria SCHEDULED FOR THE PROCEDURE /SURGERY ON 02/11/2017 Hypokalemia Lung nodules Near syncope 09/19/2023 Osteoporosis Palpitations Pneumonia Recurrent major depression ([facility]) Sciatica Thoracic compression fracture ([facility]) Vitamin D deficiency Past Surgical History: Past [...] mg 650 mg Oral TID Saad Ezzie, 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 - TONG SETTER 650 mg at 09/21/23 1339 buPROPion XL (Wellbutrin XL) 24 hr tablet 150 mg 150 mg Oral Daily Lauren Serna MD 150 mg at 09/21/23 0822 busPIRone (Buspar) tablet 15 mg 15 mg Oral TID Saad Ezzie, 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 - TONG SETTER 15 mg at 09/21/23 1340 calcitonin (Miacalcin) injection 50 Units 50 Units IntraMUSCular Daily Lauren Serna MD 50 Units at 09/21/23 1217 [START ON 09/22/2023] cholecalciferol (Vitamin D-3) tablet 1,000 Units 1,000 Units Oral Daily Saad Ezzie, 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 - TONG SETTER enoxaparin (Lovenox) syringe 40 mg 40 mg SubCUTAneous Daily Lauren Serna MD 40 mg at 09/21/23 0822 lidocaine (LMX) 4 % cream Topical PRN Lauren Serna MD melatonin tablet 3 mg 3 mg Oral Nightly Saad Ezzie, 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 - TONG SETTER mirtazapine (Remeron) tablet 15 mg 15 mg Oral Nightly Saad Ezzie, 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 - TONG SETTER 15 mg at 09/20/23 2123 mometasone-formoterol (Dulera 200) 200-5 MCG/ACT inhaler 2 puff 2 puff Inhalation BID Lauren Serna MD 2 puff at 09/21/23 0832 montelukast (Singulair) tablet 10 mg 10 mg Oral Nightly Lauren Serna MD 10 mg at 09/20/23 2122 naloxone (Narcan) injection 0.4 mg 0.4 mg IntraVENous q5 min PRN Lauren Serna MD nicotine (Nicoderm, Step 2) 14 MG/24HR patch 1 patch 1 patch TransDERmal Daily Nickolas Rivera MD 1 patch at 09/20/23 1601 ondansetron ODT (Zofran-ODT) disintegrating tablet 4 mg 4 mg Oral q8h PRN Lauern Serna MD 4 mg at 09/21/23 0741 Or ondansetron (Zofran) injection 4 mg 4 mg IntraVENous q6h PRN Lauren Serna MD oxyCODONE (Roxicodone) immediate release tablet 5 mg 5 mg Oral q6h PRN Lauren Serna MD 5 mg at 09/21/23 1014 PARoxetine (Paxil) tablet 30 mg 30 mg Oral Daily Saad Haynese, 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 - TONG SETTER 30 mg at 09/21/23 0822 perflutren protein A microsphere (Optison) 3 mL in sodium chloride (PF) 0.9 % 10 mL IV syringe 0-10 mL IntraVENous Once PRN Lauren Serna MD polyethylene glycol (PEG) 3350 (Miralax) packet 17 g 17 g Oral Daily PRN Lauren Serna MD potassium chloride CR (Klor-Con M10) ER tablet 40 mEq 40 mEq Oral BID Nickolas Rivera MD 40 mEq at 09/21/23 1014 QUEtiapine (SEROquel) tablet 100 mg 100 mg Oral Nightly Lauren Serna MD 100 mg at 09/20/23 2122 senna-docusate sodium (Senokot-S) 8.6-50 MG tablet 1 tablet 1 tablet Oral Nightly Saad Telles APRN - TONG SETTER tiotropium (Spiriva Respimat) 2.5 MCG/ACT inhaler 2 puff 2 puff Inhalation Daily Nickolas Rivera MD 2 puff at 09/21/23 0825 Allergies: [...] QT Interval 382 QTC Interval 446 P Momence 46 QRS Momence -35 T Wave Momence 147 MS Interval 142 Impression Sinus rhythm Nonspecific T [...] Significant recent weight loss, questionable PO intake 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 Prolonged QT related to [...] primary team. 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 Initial presentation significant for hypokalemia and MARIA. [...] Acute exacerbation of chronic obstructive pulmonary disease ([facility]) 04/12/2018 Allergic rhinitis Arthritis Asthma Bronchitis Cancer ([facility]) ([facility]) skin Cervical cancer ([facility]) ([facility]) Chest pain COPD (chronic obstructive pulmonary disease) ([facility]) USE OXYGEN 3 L AT NIGHT DDD (degenerative disc disease), cervical Defect, retina, with detachment right DJD (degenerative joint disease), lumbar Emphysema lung ([facility]) Former smoker Hematuria SCHEDULED FOR THE PROCEDURE /SURGERY ON 02/11/2017 Hypokalemia Lung nodules Near syncope 09/19/2023 Osteoporosis Palpitations Pneumonia Recurrent major depression ([facility]) Sciatica Thoracic compression fracture ([facility]) Vitamin D deficiency Past Surgical History: Past [...] 650 mg 650 mg Oral TID Saad Ezdariene, 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 - TONG SETTER 650 mg at 09/21/23 1339 buPROPion XL (Wellbutrin XL) 24 hr tablet 150 mg 150 mg Oral Daily Lauren Serna MD 150 mg at 09/21/23 0822 busPIRone (Buspar) tablet 15 mg 15 mg Oral TID Saadsue Telles, 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 - TONG SETTER 15 mg at 09/21/23 1340 calcitonin (Miacalcin) injection 50 Units 50 Units IntraMUSCular Daily Lauren Serna MD 50 Units at 09/21/23 1217 [START ON 09/22/2023] cholecalciferol (Vitamin D-3) tablet 1,000 Units 1,000 Units Oral Daily Saad Telles, 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 - TONG SETTER enoxaparin (Lovenox) syringe 40 mg 40 mg SubCUTAneous Daily Lauren Serna MD 40 mg at 09/21/23 0822 lidocaine (LMX) 4 % cream Topical PRN Lauren Serna MD melatonin tablet 3 mg 3 mg Oral Nightly Saad Ezzie, 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 - TONG SETTER mirtazapine (Remeron) tablet 15 mg 15 mg Oral Nightly Saad Ezzie, 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 - TONG SETTER 15 mg at 09/20/232122 mometasone-formoterol (Dulera 200) [...] 1 patch 1 patch TransDERmal Daily Nickolas Rivera MD 1 patch at 09/20/23 1601 ondansetron [...] 40 mEq 40 mEq Oral BID Nickolas Rivera MD 40 mEq at 09/21/23 1014 QUEtiapine (SEROquel) tablet 100 mg 100 mg Oral Nightly Lauren Serna MD 100 mg at 09/20/23 2122 senna-docusate sodium (Senokot-S) 8.6-50 MG tablet 1 tablet 1 tablet Oral Nightly Saad Telles APRN - TONG SETTER tiotropium (Spiriva Respimat) 2.5 MCG/ACT inhaler 2 puff 2 puff Inhalation Daily Nickolas Rivera MD 2 puff at 09/21/23 0825 Allergies: [...] QT Interval 382 QTC Interval 446 P Momence 46 QRS Momence -35 T Wave Momence 147 MS Interval 142 Impression Sinus rhythm Nonspecific T [...] Significant recent weight loss, questionable PO intake 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 Prolonged QT related to [...] peripherally Associated Order(s): IP CONSULT TO GERIATRICS [facility] Geriatric Medicine Inpatient Consult Service Admission Date: [...] depression, Vit D deficiency, Osteoporosis presented to [facility] on 09/19/23 for fall. Found to have [...] . Advance Care Planning Healthcare Power of Single Resource Boss: Unknown Financial Power of Single Resource Boss: Unknown Living Will:Unknown Code Status: Full Code [...] 1 patch, 1 patch, TransDERmal, Daily, Nickolas Rivera MD, 1 patch at 09/20/23 1601 ondansetron [...] 2 puff, 2 puff, Inhalation, Daily, Nickolas Rivera MD, 2 puff at 09/20/23 1400 Past Medical History: Diagnosis Date Abnormal stress test Allergic rhinitis Arthritis Asthma Bronchitis Cancer (CMS/HCC) ([facility]) skin Cervical cancer (CMS/HCC) ([facility]) Chest pain COPD (chronic obstructive pulmonary disease) ([facility]) USE OXYGEN 3 L AT NIGHT DDD (degenerative disc disease), cervical Defect, retina, with detachment right DJD (degenerative joint disease), lumbar Emphysema lung ([facility]) Former smoker Hematuria SCHEDULED FOR THE PROCEDURE /SURGERY ON 02/11/2017 Hypokalemia Lung nodules Near syncope 09/19/2023 Osteoporosis Palpitations Pneumonia Recurrent major depression ([facility]) Sciatica Thoracic compression fracture ([facility]) Vitamin D deficiency Past Surgical History: Procedure [...] 468 ms QTC Interval 594 ms P Momence 25 degrees QRS Momence -48 degrees T Wave Momence 0 degrees MS Interval 140 ms CBC auto differential Collection [...] 382 ms QTC Interval 446 ms P Momence 46 degrees QRS Momence -35 degrees T Wave Momence 147 degrees MS Interval 142 ms Transthoracic echocardiogram (TTE) complete [...] imaging Follow-up: will follow with you Saad Roberta Telles, DB - [place] 09/20/23 4:58 PM Associated Order(s): IP CONSULT TO CARDIOLOGY [facility] [place] [facility] Cardiology Consult Note Reason for Consult/Chief Complaint: "Syncope" Established waiter/waitress dining car: None History of Present Illness: Gonzalo Deluca [...] primary service arrange f/u with patient's outpatient waiter/waitress dining car 1-2 wks. [] Recommended; unable to arrange at this time, will arrange post-discharge [] Arranged as follows: If there are any questions/concerns, please contact the covering provider. If no answer by Secure Chat, please call the cardiology office to obtain appropriate covering CERTIFIED TEACHER ASSISTANT/physician. Medications: buPROPion XL, 150 mg, Oral, Daily [...] and well perfused Laboratory Tests: Recent Labs 09/19/23 1707 09/20/23 0627 NA 140 137 K 2.3* 3.1* [...] Allergic rhinitis Arthritis Asthma Bronchitis Cancer (CMS/HCC) ([facility]) skin Cervical cancer (CMS/HCC) ([facility]) Chest pain COPD (chronic obstructive pulmonary disease) ([facility]) USE OXYGEN 3 L AT NIGHT DDD (degenerative disc disease), cervical Defect, retina, with detachment right DJD (degenerative joint disease), lumbar Emphysema lung ([facility]) Former smoker Hematuria SCHEDULED FOR THE PROCEDURE [...] PLT 339 -- 243 CHEMISTRIES: Recent Labs 09/19/23170609/19/23 2319 09/20/23 0627 NA 140 -- 137 [...] you. documented in this encounter [facility] 09-21-2023 Telephone encounter Note Orders or will Dr. Case follow? She will follow. We don't typically give home care orders. Melva Juárez PA-C [facility] 09-21-2023 Telephone encounter Note Ashley from [facility] Patient currently admitted for falls Need orders to follow for Home Care Call back number: [phone] [facility] 09-21-2023 Note Formatting of this n ote is different from the original. Images from the original note were not included. Care Management Progress Note Chart reviewed. Patient remains on 2 east for treatment of falls and lumbar compression. Has LSO brace at home (per Ortho notes). Geriatrics following. PT recommends return home with home care. editorial assistant following. Currently on 3 liters oxygen; wears [...] GMLOS: No GMLOS Documented T [facility] 09-21-2023 Note Formatting of this n ote is different from the original. Images from the original note were not included. Care Management Progress Note Chart reviewed. Patient remains on 2 east for treatment of falls and lumbar compression. Has LSO brace at home (per Ortho notes). Geriatrics following. PT recommends return home with home care. editorial assistant following. Currently on 3 liters oxygen; wears [...] Stay (Days): 2 GMLOS: No GMLOS Documented [employer] 09-21-2023 Note Formatting of this n ote is different from the original. Start PACC Note Home Health Referral Educated patient and daughter, Karishma, on Home Care and services available. Patient offered choice of available HHC and agreeable to SN, PT services with [facility]. Care Types: [...] is noted as yes - consider a AIRCRAFT ENGINEER evaluation once the patient returns home. START PATIENT REGISTRATION INFORMATION Order Information Order Signing Physician: Nickolas Rievra MD Service Ordered RN ?: Yes Service Ordered PT ?: Yes Service Ordered OT ?: No Service Ordered ST ?: No Service Ordered AIRCRAFT ENGINEER?:No Service Ordered MIXER ATTENDANT?: No Following Physician: HERMINIA CASE MD Following Physician Overseeing Physician: HERMINIA CASE MD (Required for Residents only) Agreeable to Follow? Yes Date/Time of Call 09/21/23 2:04 PM, Spoke with: yes per call back received from office . Care Coordination Same Day SOC?: No Primary Care Physician: HERMINIA CASE MD Primary Care Physician Primary Care Physician Address: [address] [place] [id number] Visit Instructions: N/A Service Discharge Location Type: Home with Home Health Care Service Facility Name: N/A Service Floor Facility: N/A Service Room No: N/A Demographics Patient Last Name: Yosi Patient First Name: Gonzalo Language/Communication Barrier: DAUGHTER KARISHMA IS CONTACT Service Address: [address] [place] [address] [facility] City: [facility] [place]: [place] Service ZIP: [address] [facility] Other phone numbers: Telephone Information: Emergency Contact: Extended Emergency Contact Information Primary Emergency Contact: YosiKarishma Address: [address] [place] [address] [place] [address] [facility] Mobile Relation: Daughter Secondary Emergency Contact: Jace Deluca Mobile Relation: Son Admission Information Admit Date: 09/19/2023 Patient status at discharge: Inpatient Admitting Diagnosis: Near syncope [R55] Closed head injury, initial encounter [S09.90XA] Fall, initial encounter [W19.XXXA] Compression fracture of T7 vertebra, initial encounter ([facility]) [S22.060A] Compression fracture of T8 vertebra, initial encounter ([facility]) [S22.060A] Compression fracture of T5 vertebra, initial encounter ([facility]) [S22.050A] Compression fracture of L1 vertebra, initial encounter ([facility]) [S32.010A] Caregiver Information Caregiver First Name: NA Caregiver Last Name: NA Caregiver Relationship to Patient NA Caregiver Phone Number: NA Caregiver Notes: N/A [employer] List No END PATIENT REGISTRATION INFORMATION Pt [...] diagnoses: Discharge Date: TBD Referral Source-PACC: (Hospital/Unit): [facility] / B2-261/B2-261 A End PACC Note [facility] 09-21-2023 Note Formatting of this n ote is different from the original. Start PACC Note Home Health Referral Educated patient and daughter, Karishma, on Home Care and services available. Patient offered choice of available HHC and agreeable to SN, PT services with [facility]. Care [...] is noted as yes - consider a AIRCRAFT ENGINEER evaluation once the patient returns home. START PATIENT REGISTRATION INFORMATION Order Information Order Signing Physician: Nickloas Rivera MD Service Ordered RN ?: Yes Service Ordered PT ?: Yes Service Ordered OT ?: No Service Ordered ST ?: No Service Ordered AIRCRAFT ENGINEER?:No Service Ordered MIXER ATTENDANT?: No Following Physician: HERMINIA CASE MD Following Physician Overseeing Physician: HERMINIA CASE MD (Required for Residents only) Agreeable to Follow? Yes Date/Time of Call 09/21/23 2:04 PM, Spoke with: yes per call back received from office . Care Coordination Same Day SOC?: No Primary Care Physician: HERMINIA CASE MD Primary Care Physician Primary Care Physician Address: [address] [place] [id number] Visit Instructions: N/A Service Discharge Location Type: Home with Home Health Care Service Facility Name: N/A Service Floor Facility: N/A Service Room No: N/A Demographics Patient Last Name: Yosi Patient First Name: Gonzalo Language/Communication Barrier: DAUGHTER KARISHMA IS CONTACT Service Address: [address] [place], [place] [address] Bañuelos Service City: [facility] ST: [place] Service ZIP: [address] [facility] Other phone numbers: Telephone Information: Emergency Contact: Extended Emergency Contact Information Primary Emergency Contact: Karishma Deluca Address: [address] [place] [address] [place] [address] [facility] Mobile Relation: Daughter Secondary Emergency Contact: Jace Deluca Mobile Relation: Son Admission Information Admit Date: 09/19/2023 Patient status at discharge: Inpatient Admitting Diagnosis: Near syncope [R55] Closed head injury, initial encounter [S09.90XA] Fall, initial encounter [W19.XXXA] Compression fracture of T7 vertebra, initial encounter (HCC) [S22.060A] Compression fracture of T8 vertebra, initial encounter (HCC) [S22.060A] Compression fracture of T5 vertebra, initial encounter (HCC) [S22.050A] Compression fracture of L1 vertebra, initial encounter ([facility]) [S32.010A] Caregiver Information Caregiver First Name: NA [...] diagnoses: Discharge Date: TBD Referral Source-PACC: (Hospital/Unit): [facility] / B2-261/B2-261 A End PACC Note [facility] 09-21-2023 Plan of care note The patient is Moderately Unstable - Medium risk of patient condition declining or worsening The patient's goals for the shift include safety and comfort The clinical goals for the shift include safety [facility] 09-20-2023 Consult note Associated Order (s): IP CONSULT TO GERIATRICS [facility] Inpatient Consult Service Admission Date: [...] depression, Vit D deficiency, Osteoporosis presented to [facility] on 09/19/23 for fall. Found to have [...] . Advance Care Planning Healthcare Power of Single Resource Boss: Unknown Financial Power of Single Resource Boss: Unknown Living Will:Unknown Code Status: Full Code [...] 1 patch, 1 patch, TransDERmal, Daily, Nickolas Rivera MD, 1 patch at 09/20/23 1601 ondansetron [...] 2 puff, 2 puff, Inhalation, Daily, Nickolas Rivera MD, 2 puff at 09/20/23 1400 Past Medical History: Diagnosis Date Abnormal stress test Allergic rhinitis Arthritis Asthma Bronchitis Cancer (CMS/HCC) ([facility]) skin Cervical cancer (CMS/HCC) ([facility]) Chest pain COPD (chronic obstructive pulmonary disease) ([facility]) USE OXYGEN 3 L AT NIGHT DDD (degenerative disc disease), cervical Defect, retina, with detachment right DJD (degenerative joint disease), lumbar Emphysema lung ([facility]) Former smoker Hematuria SCHEDULED FOR THE PROCEDURE /SURGERY ON 02/11/2017 Hypokalemia Lung nodules Near syncope 09/19/2023 Osteoporosis Palpitations Pneumonia Recurrent major depression ([facility]) Sciatica Thoracic compression fracture ([facility]) Vitamin D deficiency Past Surgical History: Procedure [...] 468 ms QTC Interval 594 ms P Momence 25 degrees QRS Momence -48 degrees T Wave Momence 0 degrees MS Interval 140 ms CBC auto differential Collection [...] 382 ms QTC Interval 446 ms P Momence 46 degrees QRS Momence -35 degrees T Wave Momence 147 degrees MS Interval 142 ms Transthoracic echocardiogram (TTE) complete [...] imaging Follow-up: will follow with you Saad Donandrey Telles APRN - [place] 09/20/23 4:58 PM [facility] 09-20-2023 Note Formatting of this n ote might be different from the original. Care Managment Initial Assessment Date: 09/20/2023 Patient Name: Gonzalo Deluca : 1955 Patient Information Source of Information: Patient Cognition/Language: WFL - Within Functional Limits Permission given to speak with patient artists' booking representative/caregiver as indicated: Yes Confirmation of Payer with patient/family: Yes Payer Name: [facility] Dual Complete : No Confirmation of [...] Prescription Coverage: Yes Pharmacy Used: [facility] [place] Medication Management: Independent Transportation/Shopping: Transportation Mode: Car [...] Referral for: Additional Information: Pt admitted to 2E for syncopal episode and fall. Met with [...] home with possible HHC at this time. vending manager to follow and assist as needed. Carolina Alvarez RN [facility] 09-20-2023 Note Formatting of this n ote might be different from the original. Care Managment Initial Assessment Date: 09/20/2023 Patient Name: Gonzalo Deluca : 1955 Patient Information Source of Information: Patient Cognition/Language: WFL - Within Functional Limits Permission given to speak with patient artists' booking representative/caregiver as indicated: Yes Confirmation of Payer with patient/family: Yes Payer Name: [facility] Dual Complete : No Confirmation of [...] Daily Living Prescription Coverage: Yes Pharmacy Used: [facility] in [place] Medication Management: Independent Transportation/Shopping: Transportation Mode: Car [...] home with possible HHC at this time. vending manager to follow and assist as needed. Carolina Alvarez RN [facility] 09-20-2023 Consult note Associated Order (s): IP CONSULT TO CARDIOLOGY [facility] Cardiology Consult Note Reason for Consult/Chief Complaint: "Syncope" Established waiter/waitress dining car: None History of Present Illness: Gonzalo Deluca [...] primary service arrange f/u with patient's outpatient waiter/waitress dining car 1-2 wks. [] Recommended; unable to arrange at this time, will arrange post-discharge [] Arranged as follows: If there are any questions/concerns, please contact the covering provider. If no answer by Secure Chat, please call the cardiology office to obtain appropriate covering CERTIFIED TEACHER ASSISTANT/physician. Medications: buPROPion XL, 150 mg, Oral, Daily [...] well perfused Laboratory Tests: Recent Labs 09/19/23170609/20/23 06 NA 140 137 K 2.3* 3.1* CL 93* 99 CO2 35* 33* BUN 36* 28* CREATININE 1.33* 0.73 EGFR 44.2* >90.0 Recent Labs 09/19/23170609/19/23 2319 09/20/23 0627 TROPONINI 0.025 0.031 0.022 Recent Labs 09/19/23170609/19/23 1754 09/20/23 06 WBC 19.5* -- 10.9* HGB 12.7 13.4 [...] Ziyad Ovalles MD DATE of SERVICE: 09/20/2023 T [facility] 09-20-2023 Consult note Associated Order (s): [...] Allergic rhinitis Arthritis Asthma Bronchitis Cancer (CMS/HCC) ([facility]) skin Cervical cancer (CMS/HCC) ([facility]) Chest pain COPD (chronic obstructive pulmonary disease) (HCC) USE OXYGEN 3 L AT NIGHT DDD (degenerative disc disease), cervical Defect, retina, with detachment right DJD (degenerative joint disease), lumbar Emphysema lung ([facility]) Former smoker Hematuria SCHEDULED FOR THE PROCEDURE /SURGERY ON 02/11/2017 Hypokalemia Lung nodules Near syncope 09/19/2023 Osteoporosis Palpitations Pneumonia Recurrent major depression ([facility]) Sciatica Thoracic compression fracture ([facility]) Vitamin D deficiency Past Surgical History Past [...] 09, 2022. 11/09/22 12/09/22 Raul Whipple, DO tiotropium (Spiriva Respimat) 2.5 MCG/ACT inhaler Inhale [...] her chart. Labs CBC: Recent Labs 09/19/23 1707 09/19/23 1754 09/20/23 0627 WBC 19.5* -- 10.9* RBC 4.18 -- 3.64* HGB 12.7 13.4 11.0* HCT 39.6 -- 34.8* MCV 94.7 -- 95.6 RDW 13.0 -- 12.9 PLT 339 -- 243 CHEMISTRIES: Recent Labs 09/19/23 1707 09/19/23 2319 09/20/23 0627 NA 140 -- 137 K 2.3* -- 3.1* CL 93* -- 99 CO2 35* -- 33* BUN 36* -- 28* CREATININE 1.33* -- 0.73 GLUCOSE 99 -- 94 MG -- 2.7* 2.3 PT/INR:No results for input(s): "PROTIME", "INR" in the last 72 hours. APTT:No results for input(s): "APTT" in the last 72 hours. LIVER PROFILE: Recent Labs 09/19/23 1707 AST 35 ALT 38* BILITOT 0.5 ALKPHOS [...] the consult we will follow with you. T [facility] 09-20-2023 Plan of care note Problem: [...] address these barriers include . [facility] 09-19-2023 Nurse Note Explained to patient about transfer to 261. Patient verbalized understanding. Report called to 2e rn. No further questions at present. Attempted to restart potassium. Patient c./o paon at iv site. Potassium slowed and arm raised. Patient transported with oxygen and transport monitor to room 261. [facility] 09-19-2023 Nurse Note Explained to patient [...] available. documented in this encounter [facility] 09-19-2023 History and physical note Images from the original note were not included. History and Physical [facility] Gonzalo Deluca : 1955 AGE 67 y.o. YEARS Note Date 09/19/2023 Primary Care Physician:HERMINIA CASE MD Current Providers as of 09/19/2023 PCP: Herminia Case MD Care Team Provider: Ziyad Menendez MD Care Team Provider: DB Durham CNP Care Team Provider: DB Kohli CNP Referring Provider: not found, starting on TueSep 19, 2023 12:00 AM Admitting Provider: Nickolas Rivera MD, (Active) Attending Provider: Jono Weathers MD, starting on TueSep 19, 2023 4:43 PM, ending on TueSep 19, 2023 8:41 PM (Inactive) Attending Provider: Nickolas Rievra MD, starting on TueSep 19, 2023 6:48 PM (Active) Supervisor Typesetting RES: Heydi Ceballos MD, starting on TueSep [...] Allergic rhinitis Arthritis Asthma Bronchitis Cancer (CMS/HCC) ([facility]) skin Cervical cancer (CMS/HCC) ([facility]) Chest pain COPD (chronic obstructive pulmonary disease) ([facility]) USE OXYGEN 3 L AT NIGHT DDD (degenerative disc disease), cervical Defect, retina, with detachment right DJD (degenerative joint disease), lumbar Emphysema lung ([facility]) Former smoker Hematuria SCHEDULED FOR THE PROCEDURE /SURGERY ON 02/11/2017 Hypokalemia Lung nodules Near syncope 09/19/2023 Osteoporosis Palpitations Pneumonia Recurrent major depression ([facility]) Sciatica Thoracic compression fracture ([facility]) Vitamin D deficiency She is on 3 liters of oxygen chronically Past Surgical History: Procedure Laterality Date CYSTOSCOPY 01/12/2017 OFFICE PROCEDURE CYSTOSCOPY 02/11/2017 C&P bladder biopsy EYE SURGERY detached retina 1994 HYSTERECTOMY 11/06/2019 ABDOMINAL RADICAL HYSTERECTOMY WITH BSO AND PELVIC LYMPH; DR. ZIYAD MENENDEZ [facility] OTHER SURGICAL HISTORY Left 12/19/2019 Med [...] 09/19/2023 468 QTC Interval 09/19/2023 594 P Momence 09/19/2023 25 QRS Momence 09/19/2023 -48 T Wave Momence 09/19/2023 0 MS Interval 09/19/2023 140 Auto WBC 09/19/2023 19.5 [...] QT Interval 468 QTC Interval 594 P Momence 25 QRS Momence -48 T Wave Momence 0 MS Interval 140 Impression Sinus rhythm Inferior infarct, [...] will request orthopedics to see her as [facility] orthopedics has seen her in the past [...] pharmacologic and mechanical contraindicated 09/19/2023 Gonzalo Deluca [id number] Any scheduled follow up appointments Extended Emergency Contact Information Primary Emergency Contact: Karishma Deluca Address: [address] [place] [address] [place] [address] [facility] Mobile Relation: Daughter Secondary Emergency Contact: Jace Deluca Mobile Relation: Son Portions of this note may be electronically transcribed. Please forward a copy of this H&P to the primary care physician. [facility] Retention Education Work Phone: 09-19-2023 [facility] History and physical note Images from the original note were not included. History and Physical [facility] Gonzalo Deluca : 1955 AGE 67 y.o. YEARS Note Date 09/19/2023 Primary Care Physician:HERMINIA CASE MD Current Providers as of 09/19/2023 PCP: Herminia Case MD Care Team Provider: Ziyad Menendez MD Care Team Provider: DB Durham CNP Care Team Provider: DB Kohli CNP Referring Provider: not found, starting on TueSep 19, 2023 12:00 AM Admitting Provider: Nickolas Rivera MD, (Active) Attending Provider: Jono Weathers MD, starting on TueSep 19, 2023 4:43 PM, ending on TueSep 19, 2023 8:41 PM (Inactive) Attending Provider: Nickolas Rivera MD, starting on TueSep 19, 2023 6:48 PM (Active) Supervisor Typesetting RES: Heydi Ceballos MD, starting on TueSep [...] Allergic rhinitis Arthritis Asthma Bronchitis Cancer (CMS/HCC) ([facility]) skin Cervical cancer (CMS/HCC) ([facility]) Chest pain COPD (chronic obstructive pulmonary disease) ([facility]) USE OXYGEN 3 L AT NIGHT DDD [...] 09/19/2023 468 QTC Interval 09/19/2023 594 P Momence 09/19/2023 25 QRS Momence 09/19/2023 -48 T Wave Momence 09/19/2023 0 MS Interval 09/19/2023 140 Auto WBC 09/19/2023 19.5 [...] QT Interval 468 QTC Interval 594 P Momence 25 QRS Momence -48 T Wave Momence 0 MS Interval 140 Impression Sinus rhythm Inferior infarct, [...] will request orthopedics to see her as [facility] orthopedics has seen her in the past [...] pharmacologic and mechanical contraindicated 09/19/2023 Gonzalo Deluca [id number] Any scheduled follow up appointments Extended Emergency Contact Information Primary Emergency Contact: Karishma Deluca Address: [address] [place] [address] [place] [address] [facility] Mobile Relation: Daughter Secondary Emergency Contact: Jace Deluca Mobile Relation: Son Portions of this note may be electronically transcribed. Please forward a copy of this H&P to the primary care physician. documented in this encounter [facility] 09-19-2023 Nurse Note Patient arrived from er to room 463 bed 2. Patient is alert and oriented. Realized patient required private room bed coordinator notified. Will be transferred when bed available. [facility] 09-19-2023 Emergency department Note Floor advised of pt coming to floor. Elizabeth Garzon, EMT 09/19/231945 [facility] 09-19-2023 Emergency department Note Floor advised of pt coming to floor. VERA Brown 09/19/231945 Pt provided with a toni laurie and chicken salad sandwich. VERA Brown 09/19/231939 Pt on 2lpm of oxygen. Pt 89% on room air. Oxygen increased to 3lpm. VERA Brown 09/19/23 173 Pt to radiology. VERA Brown 09/19/23 1711 [...] Allergic rhinitis Arthritis Asthma Bronchitis Cancer (CMS/HCC) ([facility]) skin Cervical cancer (CMS/HCC) ([facility]) Chest pain COPD (chronic obstructive pulmonary disease) ([facility]) USE OXYGEN 3 L AT NIGHT DDD (degenerative disc disease), cervical Defect, retina, with detachment right DJD (degenerative joint disease), lumbar Emphysema lung ([facility]) Former smoker Hematuria SCHEDULED FOR THE PROCEDURE /SURGERY ON 02/11/2017 Hypokalemia Lung nodules Near syncope 09/19/2023 Osteoporosis Palpitations Pneumonia Recurrent major depression ([facility]) Sciatica Thoracic compression fracture ([facility]) Vitamin D deficiency SURGICAL HISTORY Past Surgical History: Procedure Laterality Date CYSTOSCOPY 01/12/2017 OFFICE PROCEDURE CYSTOSCOPY 02/11/2017 C&P bladder biopsy EYE SURGERY detached retina 1994 HYSTERECTOMY 11/06/2019 ABDOMINAL RADICAL HYSTERECTOMY WITH BSO AND PELVIC LYMPH; DR. ZIYAD MENENDEZ [facility] OTHER SURGICAL HISTORY Left 12/19/2019 Med Port [...] Resource Strain: Low Risk (05/20/2023) Received from [facility], [facility] Overall Financial Resource Strain (CARDIA) Difficulty of Paying Living Expenses: Not very hard Food Insecurity: No Food Insecurity (05/20/2023) Received from [facility] Hunger Vital Sign Worried About Running Out of Food in the Last Year: Never true Ran Out of Food in the Last Year: Never true Transportation Needs: No Transportation Needs (05/20/2023) Received from [facility] PRAPARE - Transportation Lack of Transportation (Medical): No Lack of Transportation (Non-Medical): No Physical Activity: Inactive (05/20/2023) Received from [facility] Exercise Vital Sign Days of Exercise per Week: 0 days Minutes of Exercise per Session: 0 min Stress: Stress Concern Present (05/20/2023) Received from [facility] [employer] Occupational Health - Occupational Stress Questionnaire Feeling of Stress : To some extent Social Connections: Unknown (05/20/2023) Received from [facility] Social Connection and Isolation Panel [NHANES] Frequency of Communication with Friends and Family: Twice a week Frequency of Social Gatherings with Friends and Family: Patient declined Attends Evangelical Services: Never Active Member of Clubs or Organizations: No Attends Club or Organization Meetings: Patient declined Marital Status: Intimate Partner Violence: Not At Risk (05/21/2022) Humiliation, Afraid, Rape, and Kick questionnaire Fear of Current or Ex-Partner: No Emotionally Abused: No Physically Abused: No Sexually Abused: No Housing Stability: Low Risk (05/20/2023) Received from [facility] Housing Stability Vital Sign Unable to Pay for Housing in the Last Year: No Number of Places Lived in the Last Year: 1 In the last 12 months, was there a time when you did not have a steady place to sleep or slept in a nursing home (including now)?: No SCREENINGS PHYSICAL EXAM ED [...] me with my interpretation noted below in [facility]. Refer to [facility] for official interpretation. RADIOLOGY: Refer to [facility] below for my independent interpretation. Interpretation per [...] Culture. Procedure Abnormality Status --------- ------ Complete Urinalysis[[id number]] Please view results for these tests on [...] Compression fracture of T5 vertebra, initial encounter ([facility]) Compression fracture of T7 vertebra, initial encounter ([facility]) Compression fracture of T8 vertebra, initial encounter ([facility]) Compression fracture of L1 vertebra, initial encounter ([facility]) External records reviewed: Chronic conditions impacting care: Social determinants of health affecting care: Diagnostics independently interpreted by me: As above ED Medications managed: Medications potassium chloride IVPB 10 mEq (10 mEq IntraVENous New Bag 09/19/23 182) magnesium sulfate IVPB premix 2,000 mg (2,000 mg IntraVENous New Bag 09/19/23 1825) sodium chloride 0.9 % bolus 500 mL [...] Compression fracture of T5 vertebra, initial encounter ([facility]) 5. Compression fracture of T7 vertebra, initial encounter ([facility]) 6. Compression fracture of T8 vertebra, initial encounter ([facility]) 7. Compression fracture of L1 vertebra, initial encounter ([facility]) DISPOSITION Admit 09/19/2023 06:48:16 PM PATIENT REFERRED [...] Ceballos MD Resident 09/19/231907 Emergency Department Encounter [facility] ED Patient: Gonzalo Deluca : 1955 [...] for clarification.) Jono Weathers MD Acute Care [facility] Jono Weathers MD 09/19/231903 documented in this encounter [facility] 09-19-2023 Emergency department Note Pt provided with a toni laurie and chicken salad sandwich. VERA Brown 09/19/23 194 [facility] 09-19-2023 Emergency department Note Pt on 2lpm of oxygen. Pt 89% on room air. Oxygen increased to 3lpm. VERA Brown 09/19/231731 [facility] 09-19-2023 Emergency department Note Pt to radiology. Elizabeth Garzon, VERA 09/19/23 1711 [facility] 09-19-2023 Physician Emergency department Note EMERGENCY [...] Chest pain COPD (chronic obstructive pulmonary disease) ([facility]) USE OXYGEN 3 L AT NIGHT DDD (degenerative disc disease), cervical Defect, retina, with detachment right DJD (degenerative joint disease), lumbar Emphysema lung (HCC) Former smoker Hematuria SCHEDULED FOR THE PROCEDURE /SURGERY ON 02/11/2017 Hypokalemia Lung nodules Near syncope 09/19/2023 Osteoporosis Palpitations Pneumonia Recurrent major depression (HCC) Sciatica Thoracic compression fracture (HCC) Vitamin D deficiency SURGICAL HISTORY Past Surgical [...] Resource Strain: Low Risk (05/20/2023) Received from [facility] Overall Financial Resource Strain (CARDIA) Difficulty of Paying Living Expenses: Not very hard Food Insecurity: No Food Insecurity (05/20/2023) Received from [facility] Hunger Vital Sign Worried About Running Out of Food in the Last Year: Never true Ran Out of Food in the Last Year: Never true Transportation Needs: No Transportation Needs (05/20/2023) Received from [facility] PRAPARE - Transportation Lack of Transportation (Medical): No Lack of Transportation (Non-Medical): No Physical Activity: Inactive (05/20/2023) Received from [facility] Exercise Vital Sign Days of Exercise per Week: 0 days Minutes of Exercise per Session: 0 min Stress: Stress Concern Present (05/20/2023) Received from [facility] [employer] Occupational Health - Occupational Stress Questionnaire Feeling of Stress : To some extent Social Connections: Unknown (05/20/2023) Received from [facility] Social Connection and Isolation Panel [NHANES] Frequency of Communication with Friends and Family: Twice a week Frequency of Social Gatherings with Friends and Family: Patient declined Attends Evangelical Services: Never Active Member of Clubs or Organizations: No Attends Club or Organization Meetings: Patient declined Marital Status: Intimate Partner Violence: Not At Risk (05/21/2022) Humiliation, Afraid, Rape, and Kick questionnaire Fear of Current or Ex-Partner: No Emotionally Abused: No Physically Abused: No Sexually Abused: No Housing Stability: Low Risk (05/20/2023) Received from [facility], [facility] Housing Stability Vital Sign Unable to Pay for Housing in the Last Year: No Number of Places Lived in the Last Year: 1 In the last 12 months, was there a time when you did not have a steady place to sleep or slept in a nursing home (including now)?: No SCREENINGS PHYSICAL EXAM ED [...] me with my interpretation noted below in [facility]. Refer to [facility] for official interpretation. RADIOLOGY: Refer to [facility] below for my independent interpretation. Interpretation per [...] Culture. Procedure Abnormality Status --------- ------ Complete Urinalysis[[id number]] Please view results for these tests on [...] mEq (10 mEq IntraVENous New Bag 09/19/23 1821) magnesium sulfate IVPB premix 2,000 mg (2,000 mg IntraVENous New Bag 09/19/23 1825) sodium chloride 0.9 % bolus 500 mL [...] Compression fracture of T7 vertebra, initial encounter ([facility]) 6. Compression fracture of T8 vertebra, initial encounter ([facility]) 7. Compression fracture of L1 vertebra, initial encounter ([facility]) DISPOSITION Admit 09/19/2023 06:48:16 PM PATIENT REFERRED [...] Medicine Resident Heydi Ceballos MD Resident 09/19/23 190 [facility] 09-19-2023 Physician Emergency department Note Emergency Department Encounter [facility] ED Patient: Gonzalo Deluca : 1955 [...] dictating provider for clarification.) Jono Weathers MD [facility] Jono Weathers MD 09/19/231903 [place] Phone: 09-16-2023 Telephone encounter Note Prescription Refill [...] Shay LPN September 16, 2023 10:08 AM [facility] 09-16-2023 Miscellaneous Notes Prescription Refill Information The [...] 2023 10:08 AM documented in this encounter [facility] 09-15-2023 Telephone encounter Note Mychart sent [facility] 09-15-2023 Miscellaneous Notes Mychart sent Schedule follow up appt with me for chronic pain [facility] Patient has been identified by [...] Silvia Trejo MA documented in this encounter [facility] 09-15-2023 Telephone encounter Note Schedule follow up appt with me for chronic pain [facility] 09-15-2023 Telephone encounter Note Pharmacy [facility] Patient has been identified by [...] 7.9 oz) Please advise. Silvia Trejo MA [facility] 09-14-2023 Telephone encounter Note Prescription Refill [...] Shay LPN September 14, 2023 10:57 AM [facility] 09-14-2023 Miscellaneous Notes Prescription Refill Information [...] 2023 10:57 AM documented in this encounter [facility] 09-08-2023 Note HNO ID: [id number] Author: BARBI GOLDBERG MD Service: ? Author [...] PREDNISONE 10 MG TABLET Barbi Goldberg MD [facility] 06-20-2024 History of Presen t illness Narrative Gonzalo [...] due on 03/21/2023 documented in this encounter [facility] 09-08-2023 Note HNO ID: [id number] Author: TATE WEATHERS MA Service: ? Author Type: Development Expert Type: Progress Notes Filed: 09/08/2023 16:09 Note Text: Mammogram Screening Never done Colorectal Cancer Screening Never done RSV Vaccine(1 - 1-dose 60+ series) Never done Shingrix Vaccine(2 of 2) due on 12/06/2019 Bone Density Screening due on 2021 Lung Cancer Screening due on 10/14/2022 Covid-19 Vaccine( season) Never done Advance Directive Discussion due on 03/21/2023 [facility] 09-07-2023 Telephone encounter Note LM for patient letting her know we have not received the form from [email or web address]. Whit Shay LPN [facility] 09-07-2023 Miscellaneous Notes LM for patient letting her know we have not received the form from [email or web address]. Whit Shay LPN Gonzalo is calling Herminia Case MD today with concern regarding Electronic Communication (FAX from [employer] is going to be coming over that needs to be faxed back to them ) Patient has been identified by name and birthdate. Duration of symptoms: N/A Person calling: self daughter: Karishma Call patient at: at home [phone] (home) [phone] (cell) Was an appointment scheduled: No Closing statement: Results or non-symptom based questions: Thank you for calling [facility], your call will be returned within the next business day. Lala Jay documented in this encounter [facility] 09-06-2023 Telephone encounter Note Gonzalo is calling Herminia Case MD today with concern regarding Electronic Communication (FAX from [facility] is going to be coming over that needs to be faxed back to them ) Patient has been identified by name and birthdate. Duration of symptoms: N/A Person calling: self daughter: Karishma Call patient at: at home [phone] (home) [phone] (cell) Was an appointment scheduled: No Closing statement: Results or non-symptom based questions: Thank you for calling [facility], your call will be returned within the next business day. Lala Jay [facility] 08-22-2023 Telephone encounter Note Last appointment: 05/20/23 Next appointment: 08/24/23 Pharmacy verified in [employer]. Refill(s) requested: Requested Prescriptions Pending Prescriptions Disp Refills oxyCODONE-acetaminophen (PERCOCET) 5-325 mg tablet 120 tablet 0 Sig: Take 1 tablet by mouth every 6 hours as needed for pain for up to 30 days. Refused Prescriptions Disp Refills cyclobenzaprine (FLEXERIL) 5 mg tablet 30 tablet 2 Sig: Take 1 tablet by mouth every 12 hours. Order(s) pended. Please advise. Tate Weathers MA, [facility] 08-22-2023 Miscellaneous Notes Last appointment: 05/20/23 Next appointment: 08/24/23 Pharm[facility]. Refill(s) requested: Requested Prescriptions Pending [...] Order(s) pended. Please advise. Tate Weathers MA, DIRECTOR NURSING SERVICE documented in this encounter [facility] 08-05-2023 Telephone encounter Note Last appointment: 06/10/23 Next appointment: 08/16/23 Pharmacy [facility]. Refill(s) requested: Requested Prescriptions Pending Prescriptions Disp Refills cyclobenzaprine (FLEXERIL) 5 mg tablet [Pharmacy Med Name: CYCLOBENZAPRINE 5 MG TABLET] 30 tablet 2 Sig: take 1 tablet by mouth twice a day as needed Order(s) pended. Please advise. Whit Shay LPN, CMA [facility] 08-05-2023 Miscellaneous Notes Last appointment: 06/10/23 Next appointment: 08/16/23 Pharmacy verified [facility]. Refill(s) requested: Requested Prescriptions Pending Prescriptions Disp Refills cyclobenzaprine (FLEXERIL) 5 mg tablet [Pharmacy Med Name: CYCLOBENZAPRINE 5 MG TABLET] 30 tablet 2 Sig: take 1 tablet by mouth twice a day as needed Order(s) pended. Please advise. Whit Shay LPN, CMA documented in this encounter [facility] 07-23-2023 Telephone encounter Note Last appointment: 06/10/23 Next appointment: 08/03/23 Pharmacy [facility]. Refill(s) requested: Requested Prescriptions Pending Prescriptions Disp Refills oxyCODONE-acetaminophen (PERCOCET) 5-325 mg tablet 120 tablet 0 Sig: Take 1 tablet by mouth every 6 hours as needed for pain for up to 30 days. Order(s) pended. Please advise. Whit Shay LPN, DIRECTOR NURSING SERVICE [facility] 07-23-2023 Miscellaneous Notes Last appointment: 06/10/23 Next appointment: 08/03/23 Pharmacy [facility]. Refill(s) requested: Requested Prescriptions Pending Prescriptions Disp Refills oxyCODONE-acetaminophen (PERCOCET) 5-325 mg tablet 120 tablet 0 Sig: Take 1 tablet by mouth every 6 hours as needed for pain for up to 30 days. Order(s) pended. Please advise. Whit Shay LPN, DIRECTOR NURSING SERVICE documented in this encounter [facility] 07-20-2023 Telephone encounter Note Pharm[facility] Patient has been identified by [...] for: "B12" Please advise. Nicole Sabillon MA [facility] 07-20-2023 Miscellaneous Notes Pharmacy verified in [employer] [...] Nicole Sabillon MA documented in this encounter [facility] 07-08-2023 Telephone encounter Note LM for patient to call the office. Whit Shay LPN [facility] 07-08-2023 Miscellaneous Notes LM for patient to call the office. Whit Shay LPN Rx sent for advair which is similar. Received fax from [employer], the Fluticasone-Vilanterol 200-25, is not covered by insurance. Please advise. Whit Shay LPN documented in this encounter [facility] 07-08-2023 Telephone encounter Note Rx sent for advair which is similar. [facility] 07-04-2023 Miscellaneous Notes Pharmacy [facility] Patient has been identified by [...] Alejandra Reno MA documented in this encounter [facility] 06-30-2023 Telephone encounter Note Received fax from [facility], the Fluticasone-Vilanterol 200-25, is not covered by insurance. Please advise. Whit Shay LPN [facility] 06-28-2023 Miscellaneous Notes Last appointment: 06/10/23 Next appointment: 07/22/23 Pharmacy [facility]. Refill(s) requested: Requested Prescriptions Pending Prescriptions Disp Refills fluticasone-vilanterol (BREO ELLIPTA) 200-25 mcg/dose inhaler 60 Each 5 Sig: Inhale 1 Inhalation as instructed once daily. Order(s) pended. Please advise. Whit Shay LPN, DIRECTOR NURSING SERVICE documented in this encounter [facility] 06-27-2023 Miscellaneous Notes Pharm[facility] Patient has been identified by [...] Alejandra Reno MA documented in this encounter [facility] 06-24-2023 Miscellaneous Notes Last appointment: 06/10/23 Next appointment: 07/22/23 Pharmacy [facility]. Refill(s) requested: Requested Prescriptions Pending Prescriptions Disp Refills busPIRone (BUSPAR) 15 mg tablet 90 tablet 0 Sig: Take 1 tablet by mouth three times a day. Order(s) pended. Please advise. Rayo Roman MA, DIRECTOR NURSING SERVICE documented in this encounter [facility] 06-11-2023 Miscellaneous Notes Last appointment: 06/10/23 Next appointment: 07/22/23 Pharmacy [facility]. Refill(s) requested: Requested Prescriptions Pending Prescriptions Disp Refills cyclobenzaprine (FLEXERIL) 5 mg tablet [Pharmacy Med Name: CYCLOBENZAPRINE 5 MG TABLET] 30 tablet 2 Sig: take 1 tablet by mouth twice a day as needed Order(s) pended. Please advise. Whit Shay LPN, DIRECTOR NURSING SERVICE documented in this encounter [facility] 06-10-2023 History of Presen t illness Narrative VIRTUAL VISIT PROGRESS NOTE This is a virtual visit using [employer] Zoom Video Visit. It required patient-provider interaction for the medical decision making as documented below. I have communicated my name and active licensure. The patient's identity and physical location were verified at the time of this visit. Either the patient or their legal artists' booking representative has been informed of the risks [...] Herminia Case MD documented in this encounter [facility] 05-27-2023 Miscellaneous Notes Pharmacy verified in Epic Patient [...] Nicole Sabillon Ma documented in this encounter [facility] 05-26-2023 Miscellaneous Notes Last appointment: 05-20-23 Next appointment: 06-10-23 Pharmacy verified in [facility]. Refill(s) requested: Requested Prescriptions Pending Prescriptions Disp Refills busPIRone (BUSPAR) 15 mg tablet 90 tablet 0 Sig: Take 1 tablet by mouth three times a day. Order(s) pended. Please advise. Evangelina Baltazar MA, DIRECTOR NURSING SERVICE documented in this encounter [facility] 05-25-2023 Miscellaneous Notes Type of letter/form/fax request - orders Form received from [facility] Placed on MD desk () for completion. Completed form needs to be faxed to [phone]. Route to [place] when form completed for processing documented in this encounter [facility] 05-25-2023 Miscellaneous Notes Request completed and faxed to [phone] with confirmation of receipt. Placed on Wiht TRIANA desk for filing Done. Type of letter/form/fax request - Home Health Care Orders Form received from [facility] on 05/18/23 floor and placed on desk () for completion. Completed form needs to be faxed to [phone]. Route to [place] when form completed for processing documented in this encounter [facility] 05-20-2023 History of Presen t illness Narrative VIRTUAL VISIT PROGRESS NOTE This is a virtual visit using [employer] Video Visit. It required patient-provider interaction for the medical decision making as documented below. I have communicated my name and active licensure. The patient's identity and physical location were verified at the time of this visit. Either the patient or their legal artists' booking representative has been informed of the risks [...] Herminia Case MD documented in this encounter [facility] 05-19-2023 Miscellaneous Notes Home care Certification Form 485 received from 05/18/23. For cert dates 05/11/23 to 07/09/23 that were signed on 05/18/23. Recertification Patient's home health 485 form / care plan for stated certification period reviewed and signed. Relevant medical records were reviewed. No changes were indicated documented in this encounter [facility] 05-18-2023 Miscellaneous Notes Request completed and faxed. Done. Type of letter/form/fax request - Home Health Care Orders Form received from [facility] on 24 floor and placed on MD desk () for completion. Completed form needs to be faxed to [phone]. Route to [place] when form completed for processing documented in this encounter [facility] 05-09-2023 Miscellaneous Notes Request completed and faxed. Type of letter/form/fax request - Home Health Care Orders Form received from [facility] on 05/06/23 floor and placed on MD desk () for completion. Completed form needs to be faxed to [phone]. Route to [place] when form completed for processing documented in this encounter [facility] 05-02-2023 History of Presen t illness Narrative Patient presents with: Follow Up HPI: Gonzalo Deluca is a 67 year old female who presents to the office today for follow up. Anxiety - on paxil, switched from cymbalta to paxil. 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) Pna (Pneumonia) Right Arm Weakness Poor Venous [...] due on 03/21/2023 documented in this encounter [facility] 05-02-2023 Instructions Whit Shay LPN - 05/02/2023 2:26 PM EST [facility] TEST INFORMATION [facility] HOURS: Lab is open: 7:30am to 5:00pm M - Th, 7:30am to 4:00pm on Tue and 8am -12pm on Tue. The lab is located in [facility] on the first floor. There is a registration window at the lab, available 7 am to 3 pm Tuesday - Tuesday. If registration is unavailable at the lab, you may register at the patient registration office near the front lobby of the hospital. SCHEDULING A LAB APPOINTMENT: Laboratory appointments are recommended.Walk ins are still accepted. Call [phone] or schedule via [employer] scheduling ticket. ROUTINE LAB ORDERS 60 days [...] REFILL REQUESTS Request prescription refills through your [employer] account or contact your Pharmacy. My Chart Schedule My Appointment enables you to view your established primary care provider's open schedule and book an appointment online in real-time. This feature is available in internal medicine, family medicine, or pediatrics at any of our [facility] locations and main campus. documented in this encounter [facility] 04-29-2023 Miscellaneous Notes Spoke to Amanda who states she has been seeing patient for a few months for palliative care. Discharged from facility about a month ago Fall and Hip fx Fall with femur fx On continuous O2 3.5L - COPD Clonazepam not reordered when she left facility - provider requesting OV Walking with walker [facility] home health care nurse also seeing pt. OV scheduled Tuesday Gonzalo is a patient of Herminia Case MD today NADEEM Patel from [facility] is calling to speak to the nurse to review medications. She has questions related to her anxiety and respiratory status. She stated it was not urgent but needs to speak to the nurse/provider today. Patient has been identified by name and birthdate. Closing statement: Symptom Call: Thank you for calling [facility], your call is very important. A nurse will call in approximately 2-4 hours during business hours. If this is an emergency, please contact 911. Tiara Jay documented in this encounter [facility] 04-27-2023 Miscellaneous Notes Please review and advise documented in this encounter [facility] 04-27-2023 Telephone encounter Note Patient cancelled 04-27 appointment via [employer] with the following: Reason for Cancellation: Patient: Lack of Transportation" LVM to r/s [facility] 04-27-2023 Miscellaneous Notes Patient cancelled 04-27 appointment via [employer] with the following: Reason for Cancellation: Patient: Lack of Transportation" LVM to r/s Patient cancelled 04-22 appointment via [employer] stating: Reason for Cancellation: Patient: Schedule Conflict" LVM for patient to call back and get r/s documented in this encounter [facility] 04-21-2023 Telephone encounter Note Patient cancelled 04-22 appointment via [employer] stating: Reason for Cancellation: Patient: Schedule Conflict" LVM for patient to call back and get r/s [facility] 04-21-2023 Miscellaneous Notes Request completed and faxed. Type of letter/form/fax request - Home Health Care Orders Form received from [facility] on 04/17/23 floor and placed on MD desk () for completion. Completed form needs to be faxed to [phone]. Route to [place] when form completed for processing documented in this encounter [facility] 03-11-2023 History of Past i llness Narrative Problem Noted Date Diagnosed Date Resolved Date Chronic pain syndrome 03/11/20232022 Moderate malnutrition 01/22/20232022 COPD (chronic obstructive pu lmonary disease) with acute bronchitis (HCC) 02/02/2021 03/09/2023 Obesity, Class I, BMI 30-34.9 12/07/2018 03/11/2023 documented as of this encounter (statuses as of 04/22/2023) [facility]12-22-2023 History of Past illness Narrative* Problem Noted Date Diagnosed Date Resolved Date Chronic pain syndrome 03/11/20232022 Moderate malnutrition 01/22/20232022 COPD (chronic obstructive pu lmonary disease) with acute bronchitis (HCC) 02/02/2021 03/09/2023 Obesity, Class I, BMI 30-34.9 12/07/2018 03/11/2023 documented as of this encounter (statuses as of 04/28/2023) [facility] History of Past illness Narrative* Problem Noted Date Diagnosed Date Resolved Date Chronic pain syndrome 03/11/20232022 Moderate malnutrition 01/22/20232022 COPD (chronic obstructive pu lmonary disease) with acute bronchitis (HCC) 02/02/2021 03/09/2023 Obesity, Class I, BMI 30-34.9 12/07/2018 03/11/2023 documented as of this encounter (statuses as of 05/03/2023) [facility] History of Past illness Narrative* Problem Noted Date Diagnosed Date Resolved Date Chronic pain syndrome 03/11/20232022 Moderate malnutrition 01/22/20232022 COPD (chronic obstructive pu lmonary disease) with acute bronchitis (HCC) 02/02/2021 03/09/2023 Obesity, Class I, BMI 30-34.9 12/07/2018 03/11/2023 documented as of this encounter (statuses as of 05/09/2023) [facility] History of Past illness Narrative* Problem Noted Date Diagnosed Date Resolved Date Chronic pain syndrome 03/11/20232022 Moderate malnutrition 01/22/20232022 COPD (chronic obstructive pu lmonary disease) with acute bronchitis (HCC) 02/02/2021 03/09/2023 Obesity, Class I, BMI 30-34.9 12/07/2018 03/11/2023 documented as of this encounter (statuses as of 05/18/2023) [facility]12[facility]22-2023 History of Past illness Narrative* Problem Noted Date Diagnosed Date Resolved Date Chronic pain syndrome 03/11/20232022 Moderate malnutrition 01/22/20232022 COPD (chronic obstructive pu lmonary disease) with acute bronchitis (HCC) 02/02/2021 03/09/2023 Malignant neoplasm of exocervix 11/07/2019 05/20/2023 Obesity, Class I, BMI 30-34.9 12/07/2018 03/11/2023 documented as of this encounter (statuses as of 05/20/2023) [facility]12-22-2023 History of Past illness Narrative* Problem Noted Date Diagnosed Date Resolved Date Chronic pain syndrome 03/11/20232022 Moderate malnutrition 01/22/20232022 COPD (chronic obstructive pu lmonary disease) with acute bronchitis (HCC) 02/02/2021 03/09/2023 Malignant neoplasm of exocervix 11/07/2019 05/20/2023 Obesity, Class I, BMI 30-34.9 12/07/2018 03/11/2023 documented as of this encounter (statuses as of 05/21/2023) [facility]20[facility] History of Past illness Narrative* Problem Noted Date Diagnosed Date Resolved Date Chronic pain syndrome 03/11/20232022 Moderate malnutrition 01/22/20232022 COPD (chronic obstructive pu lmonary disease) with acute bronchitis (HCC) 02/02/2021 03/09/2023 Malignant neoplasm of exocervix 11/07/2019 05/20/2023 Obesity, Class I, BMI 30-34.9 12/07/2018 03/11/2023 documented as of this encounter (statuses as of 05/24/2023) [facility] History of Past illness Narrative* Problem Noted Date Diagnosed Date Resolved Date Chronic pain syndrome 03/11/20232022 Moderate malnutrition 01/22/20232022 COPD (chronic obstructive pu lmonary disease) with acute bronchitis (HCC) 02/02/2021 03/09/2023 Malignant neoplasm of exocervix 11/07/2019 05/20/2023 Obesity, Class I, BMI 30-34.9 12/07/2018 03/11/2023 documented as of this encounter (statuses as of 05/26/2023) [facility] History of Past illness Narrative* Problem Noted Date Diagnosed Date Resolved Date Chronic pain syndrome 03/11/20232022 Moderate malnutrition 01/22/20232022 COPD (chronic obstructive pu lmonary disease) with acute bronchitis (HCC) 02/02/2021 03/09/2023 Malignant neoplasm of exocervix 11/07/2019 05/20/2023 Obesity, Class I, BMI 30-34.9 12/07/2018 03/11/2023 documented as of this encounter (statuses as of 05/26/2023) [facility] History of Past illness Narrative* Problem Noted Date Diagnosed Date Resolved Date Chronic pain syndrome 03/11/20232022 Moderate malnutrition 01/22/20232022 COPD (chronic obstructive pu lmonary disease) with acute bronchitis (HCC) 02/02/2021 03/09/2023 Malignant neoplasm of exocervix 11/07/2019 3 05/20/2023 Obesity, Class I, BMI 30-34.9 12/07/2018 03/11/2023 documented as of this encounter (statuses as of 05/27/2023) [facility] History of Past illness Narrative* Problem Noted Date Diagnosed Date Resolved Date Chronic pain syndrome 03/11/20232022 Moderate malnutrition 01/22/20232022 COPD (chronic obstructive pu lmonary disease) with acute bronchitis (HCC) 02/02/2021 03/09/2023 Malignant neoplasm of exocervix 11/07/2019 05/20/2023 Obesity, Class I, BMI 30-34.9 12/07/2018 03/11/2023 documented as of this encounter (statuses as of 05/27/2023) [facility] History of Past illness Narrative* Problem Noted Date Diagnosed Date Resolved Date Chronic pain syndrome 03/11/20232022 Moderate malnutrition 01/22/20232022 COPD (chronic obstructive pu lmonary disease) with acute bronchitis (HCC) 02/02/2021 03/09/2023 Malignant neoplasm of exocervix 11/07/2019 05/20/2023 Obesity, Class I, BMI 30-34.9 12/07/2018 03/11/2023 documented as of this encounter (statuses as of 06/11/2023) [facility] History of Past illness Narrative* Problem Noted Date Diagnosed Date Resolved Date Chronic pain syndrome 03/11/20232022 Moderate malnutrition 01/22/20232022 COPD (chronic obstructive pu lmonary disease) with acute bronchitis (HCC) 02/02/2021 03/09/2023 Malignant neoplasm of exocervix 11/07/2019 05/20/2023 Obesity, Class I, BMI 30-34.9 12/07/2018 03/11/2023 documented as of this encounter (statuses as of 06/24/2023) [facility] History of Past illness Narrative* Problem Noted Date Diagnosed Date Resolved Date Chronic pain syndrome 03/11/20232022 Moderate malnutrition 01/22/20232022 COPD (chronic obstructive pu lmonary disease) with acute bronchitis (HCC) 02/02/2021 03/09/2023 Malignant neoplasm of exocervix 11/07/2019 05/20/2023 Obesity, Class I, BMI 30-34.9 12/07/2018 03/11/2023 documented as of this encounter (statuses as of 06/27/2023) [facility] History of Past illness Narrative* Problem Noted Date Diagnosed Date Resolved Date Chronic pain syndrome 03/11/20232022 Moderate malnutrition 01/22/20232022 COPD (chronic obstructive pu lmonary disease) with acute bronchitis (HCC) 02/02/2021 03/09/2023 Malignant neoplasm of exocervix 11/07/2019 3 05/20/2023 Obesity, Class I, BMI 30-34.9 12/07/2018 03/11/2023 documented as of this encounter (statuses as of 06/27/2023) [facility] History of Past illness Narrative* Problem Noted Date Diagnosed Date Resolved Date Chronic pain syndrome 03/11/20232022 Moderate malnutrition 01/22/20232022 COPD (chronic obstructive pu lmonary disease) with acute bronchitis (HCC) 02/02/2021 03/09/2023 Malignant neoplasm of exocervix 11/07/2019 05/20/2023 Obesity, Class I, BMI 30-34.9 12/07/2018 03/11/2023 documented as of this encounter (statuses as of 06/30/2023) [facility] History of Past illness Narrative* Problem Noted Date Diagnosed Date Resolved Date Chronic pain syndrome 03/11/20232022 Moderate malnutrition 01/22/20232022 COPD (chronic obstructive pu lmonary disease) with acute bronchitis (HCC) 02/02/2021 03/09/2023 Malignant neoplasm of exocervix 11/07/2019 3 05/20/2023 Obesity, Class I, BMI 30-34.9 12/07/2018 03/11/2023 documented as of this encounter (statuses as of 07/05/2023) [facility]12[facility] History of Past illness Narrative* Problem Noted Date Diagnosed Date Resolved Date Chronic pain syndrome 03/11/20232022 Moderate malnutrition 01/22/20232022 COPD (chronic obstructive pu lmonary disease) with acute bronchitis (HCC) 02/02/2021 03/09/2023 Malignant neoplasm of exocervix 11/07/2019 05/20/2023 Obesity, Class I, BMI 30-34.9 12/07/2018 03/11/2023 documented as of this encounter (statuses as of 07/05/2023) [facility]12[facility] History of Past illness Narrative* Problem Noted Date Diagnosed Date Resolved Date Chronic pain syndrome 03/11/20232022 Moderate malnutrition 01/22/20232022 COPD (chronic obstructive pu lmonary disease) with acute bronchitis (HCC) 02/02/2021 03/09/2023 Malignant neoplasm of exocervix 11/07/2019 05/20/2023 Obesity, Class I, BMI 30-34.9 12/07/2018 03/11/2023 documented as of this encounter (statuses as of 07/08/2023) [facility]12-19-2023 Miscellaneous Notes* Telephone Encounter - Maria Alejandra Reno MA - 03/08/2023 8:34 AM EST [facility] Patient has been identified by [...] Maria Alejandra Reno MA [facility] Miscellaneous Notes* Care Coordination - Unknown Case Management - 02/18/2023 4:02 PM EST Patient Choice Patient Name: GONZALO DELUCA Date of : 1955 All Providers Sent Referral Name: [facility] Phone: [phone] Address: [address] [place] [address] * Care Coordination - SATURNINO Garcia - 02/18/2023 2:19 PM EST S/W, follow up Patient discharged to [facility]. Transport set via [facility] at 430p. gas worker provided with report number. I did visit patient in room to notify of transport at 430p. Patient noted she will inform her daughter. * Care Coordination - Nidia Barahona - 02/18/2023 1:34 PM EST Discharge med list transmitted to SNF-[facility] via [facility] per TCC request. 7000 was entered into [facility] for the SNF- Facility is aware. * Care Coordination - SATURNINO Garcia - 02/16/2023 1:48 PM EST S/W, transport Transport sheet placed in patient paper chart for [facility] SNF. * Care Coordination - Jordana Lowe RN - 02/16/2023 11:18 AM EST Images from the original note were not included. Care Management Progress Note Remains in HICU due to lumbar fracture. Bone scan planned for 02/17. Ortho following. [facility] able to accept pt. DIRECTOR NURSING SERVICE tasked to initiate insurance auth. Await insurance approval. Insurance approval received. Attending, faustina, RN & TITLE INSURANCE SALES REPRESENTATIVE notified. Pt to have bone scan tomorrowas [...] 02/15/2023 3:09 PM EST [facility] TCC request. Await review and response regarding ability to accept. TCC notified. * Care Coordination - Ping Lazo RN - 02/15/2023 2:44 PM EST Care Managment Initial Assessment Date: 02/15/2023 Patient Name: Gonzalo Deluca : 1955 Patient Information Source of Information: Patient Cognition/Language: WFL - Within Functional Limits Permission given to speak with patient artists' booking representative/caregiver as indicated: Yes (Karishma Yosi dtr [phone]) Confirmation of Payer with patient/family: Yes Payer Name: [facility] Medicare [place]: No Confirmation of Primary Care Physician: Confirmed [...] SNF Discharge Planning Actions: Continue to follow, [facility] Facility referral indicated [facility] of choice: [facility] of choice discussed, Choice list provided (emailed to [email or web address]) Patient's Choice Rights and [employer] and Collaborative Relationships Disclosed as Indicated for Post-Acute Care: Yes Interdisciplinary Team Engagement: PT/OT Social Work Referral for: Additional Information: Patient admitted to [facility] for treatment of of Lumbar compression fracture. PT/OT recommends SNF. Spoke with patient over the phone. Explained role. Lives w/ daughter in two story home. Independentwith adls. Daughter and Son drives. +PCP, +RX cov, +DME, home oxygen. Discussed SNF. Emailed list to [email or web address]. She did inform me she was at [facility] and would be agreeable to go back there. DIRECTOR NURSING SERVICE tasked to make referral to [facility]. Did explained will need to confirm bedavailability and obtain insurance authorization. She demonstrates understanding. DCP: SNF, referral to [facility]. Other choices pending. Ping Lazo RN * Home Care - Deanna Romero LPN - 02/14/2023 8:50 AM EST Patient is currently active with [facility]. The patients current certification period will on 03/28/23. The patient is currently receiving PT services through the agency. Head Piece Assembler to continue to follow. documented in this encounterSAvita [facility] Ontario [id number] Note* Care Coordination - Unknown Case Management - 02/18/2023 4:02 PM EST Patient Choice Patient Name: GONZALO DELUCA Date of : 1955 All Providers Sent Referral Name: [facility] Phone: [phone] Address: [address] [place] [id number] [id number] [facility]* Care Coordination - Unknown Case Management - 02/18/2023 4:02 PM EST Patient Choice Patient Name: GONZALO DELUCA Date of : 1955 All Providers Sent Referral Name: [facility] Phone: [phone] Address: [address] [place] [address] [facility] [id number] Note* Care Coordination - SATURNINO Garcia - 02/18/2023 2:19 PM EST S/W, follow up Patient discharged to [facility]. Transport set via [facility] at 430p. gas worker provided with report number. I did visit patient in room to notify of transport at 430p. Patient noted she will inform her daughter. [id number] Note* Care Coordination - SATURNINO Garcia - 02/18/2023 2:19 PM EST S/W, follow up Patient discharged to [facility]. Transport set via [facility] at 430p. gas worker provided with report number. I did visit patient in room to notify of transport at 430p. Patient noted she will inform her daughter. [id number] Note* Care Coordination - Nidia Barahona - 02/18/2023 1:34 PM EST Discharge med list transmitted to [facility] via [facility] per TCC request. 7000 was entered into [facility] for the SNF- Facility is aware. [place] [id number] Note* Care Coordination - Nidia Barahona - 02/18/2023 1:34 PM EST Discharge med list transmitted to [facility] via Careport per TCC request. 7000 was entered into [facility] for the [facility]- Facility is aware. [id number] Hospital Discharge instructions* Discharge Instr - Activity* [...] Information Primary Emergency Contact: Karishma Deluca Address: [address] [place] [address] Dr. [place] [phone] [facility] Mobile Relation: Daughter Secondary Emergency Contact: Jace [...] (135 lb) Mental Status: {SHAMA Patient Mental Status:22119} IV Access: SHAMA IV Access: None Nursing Mobility/ADLs: Walking Minimal assistance Transfer Minimal assistance Bathing Minimal assistance Dressing Minimal assistance Toileting Minimal assistance Feeding Independent Engine Specialist Independent Med Delivery no Wound Care Documentation [...] Assessment Score: @READMISSIONRISKDETAILS@ Discharging to Facility/ Agency [facility] Address: [address] [place] [address] Dialysis Facility (if applicable) Name: Address: Dialysis Schedule: Phone: Fax: Senior Media Director/Rug Renovator signature: ICIAN SECTION Prognosis: fair Condition at Discharge: stable Rehab Potential (if transferring to Rehab): good Recommended Labs or Other Treatments After Discharge: cbc and Bmp in 3 days Physician Certification: I certify the above information and transfer of Gonzalo Deluca is necessary for the continuing treatment of the diagnosis listed and that she requires fpc facility for less than 30 days. Update Admission H&P: No change in H&P PHYSICIAN SIGNATURE: * Additional Instructions* Earlene Echavarria MD - 02/18/2023 1:11 PM EST BONe scan with compression fracture, and brace given, also shows rib fractures. Follow up with Dr. Frank CBC and BMP in 3 days documented in this [facility]12-01-2023 History of Present illness Narrative* Yesenia Salas, LEATHER WHITENER - 02/18/2023 11:45 AM EST [facility] Respiratory Care Department Progress Note As part [...] from the original note were not included. [phone]: Please page nm ([phone]) for patient care issues. [phone]: Please page [facility] Hospitalist for any issues. Subjective: Admit Date: 02/13/2023 PCP: HERMINIA CASE MD Room#: 232-08/232-08 Norma Deluca is a 67 y.o. female who presents with Lumbar compression fracture, closed, initial encounter ([facility]) Interval History: Claims that back pain is [...] was a tentative plan of discharge to fpc facility today but discharge was held because [...] Information Primary Emergency Contact: Karishma Deluca Address: [address] [place] [address] [facility] Mobile Relation: Daughter Secondary Emergency Contact: Jace Deluca Mobile Relation: Son Advance Directive: Full Code Discharge planning: TBD Earlene Echavarria MD Division of Hospitalist Medicine Inpatient Medical Services[facility] * Oseas Lima, PT - 02/17/2023 11:39 AM EST Images from the original note were not included. PHYSICAL THERAPY [facility] Treatment Note Name/MRN: Gonzalo Deluca ([id number]) Date of : 1955 Age: 67 y.o. [...] Mobility Raw Score (No Stairs) : 15 [facility] Goals Patient Stated Goal: Patient states [...] other than deg changes. LSO ordered from [facility] Can be discharged when medically ready. * [...] original note were not included. OCCUPATIONAL THERAPY [facility] Treatment Note Name/MRN: Gonzalo Deluca ([id number]) Date of : 1955 Age: 67 y.o. Room/Bed: /232-08 A Visit #: 1 out of 7 [...] from the original note were not included. [phone]: Please page me ([phone]) for patient care issues. [phone]: Please page [facility] Hospitalist for any issues. Subjective: Admit Date: 02/13/2023 PCP: HERMINIA CASE MD Room#: 232-08/232-08 Norma Deluca is a 67 y.o. female who presents with Lumbar compression fracture, closed, initial encounter ([facility]) Interval History: Claims that back pain is [...] Net 300 ml LABS: CBC: Recent Labs 02/13/23211302/15/236 WBC 11.1* 5.2 RBC 3.86 3.36* HGB [...] Information Primary Emergency Contact: Karishma Deluca Address: [address] [place] [address] [place] [address] [facility] Mobile Relation: Daughter Secondary Emergency Contact: Jace Deluca Mobile Relation: Son Advance Directive: Full Code Discharge planning: TBD Earlene Echavarria MD Division of Hospitalist Medicine Inpatient Medical Services/[facility] * Betsey Gresham MD - 02/16/2023 7:51 [...] from the original note were not included. [phone]: Please page me ([phone]) for patient care issues. [phone]: Please page [facility] night Hospitalist for any issues. Subjective: Admit Date: 02/13/2023 PCP: HERMINIA CASE MD Room#: 232-08/232-08 Norma Deluca is a 67 y.o. female who presents with Lumbar compression fracture, closed, initial encounter ([facility]) Interval History: Claims that back pain is [...] Information Primary Emergency Contact: Karishma Deluca Address: [address] [place] [address] [place] [address] [facility] Mobile Relation: Daughter Secondary Emergency Contact: Jace Deluca Mobile Relation: Son Advance Directive: Full Code Discharge planning: TBD Earlene Echavarria MD Division of Hospitalist Medicine Inpatient Medical Services/[facility] * Marian Navya, PT - 02/15/2023 11:13 AM EST Images from the original note were not included. PHYSICAL THERAPY [facility] Treatment Note Name/MRN: Gonzalo Deluca ([id number]) Date of : 1955 Age: 67 y.o. Room/Bed: 232-08/232 A Visit #: 1 out of 7 [...] for ambulation. (Progressing) Start: 02/14/23 Expected End: 12/05/23 Therapy Time Individual Co-treatment Time In 1039 Time Out 1056 Minutes 17 Timed Code Treatment Minutes: 15 Minutes (1 Gt) Marian Mendosa PT * Josie Isaac - 02/15/2023 7:55 AM EST Nutrition rescreen complete. Pt assigned a level one for nutrition care. * Betsey Gresham MD - 02/15/2023 7:22 AM EST [...] from the original note were not included. [phone]: Please page me ([phone]) for patient care issues. [phone]: Please page [facility] Hospitalist for any issues. Subjective: Admit Date: 02/13/2023 PCP: HERMINIA CASE MD Room#: 232-08/232-08 Norma Deluca is a 67 y.o. female who presents with Lumbar compression fracture, closed, initial encounter ([facility]) Interval History: No overnight issues. She is [...] since patient refuses MRI Physical therapy recommending fpc facility and possible discharge planning to SNF [...] Information Primary Emergency Contact: Karishma Deluca Address: [address] [place] [address] [place] [address] [facility] Mobile Relation: Daughter Secondary Emergency Contact: Jace Deluca Mobile Relation: Son Advance Directive: Full Code Discharge planning: TBD Earlene Echavarria MD Division of Hospitalist Medicine Inpatient Medical Services/[facility] * Catalina Rojo OT - 02/14/2023 10:11 AM EST Images from the original note were not included. OCCUPATIONAL THERAPY [facility] Initial Evaluation Name/MRN: Gonzalo Deluca ([id number]) Evaluation Date: 02/14/2023 Date of : 1955 Admission Date: 02/13/2023 6:59 PM Age: 67 y.o. Room/Bed: 232-08/232-08 A Discharge Recommendation: SNF and Continue to [...] Allergic rhinitis Arthritis Asthma Bronchitis Cancer (CMS/HCC) ([facility]) skin Cervical cancer (CMS/HCC) ([facility]) Chest pain COPD (chronic obstructive pulmonary disease) ([facility]) USE OXYGEN 3 L AT NIGHT DDD (degenerative disc disease), cervical Defect, retina, with detachment right DJD (degenerative joint disease), lumbar Emphysema lung ([facility]) Former smoker Hematuria SCHEDULED FOR THE PROCEDURE /SURGERY ON 02/11/2017 Hypokalemia Lung nodules Osteoporosis Palpitations Pneumonia Recurrent major depression ([facility]) Sciatica Thoracic compression fracture ([facility]) Vitamin D deficiency Past Surgical History: Past [...] Noted Lumbar compression fracture, closed, initial encounter ([facility]) 02/13/2023 Nondisplaced fracture of neck of left femur ([facility]) 11/06/2022 Other specified complication of vascular prosthetic devices, implants and grafts, initial encounter([facility]) 08/06/2021 Acute exacerbation of chronic obstructive pulmonary disease ([facility]) 04/12/2018 Poor venous access 12/19/2019 H/O: CVA (cerebrovascular accident) 12/14/2019 Malignant neoplasm of exocervix ([facility]) 11/07/2019 S/P hysterectomy 11/07/2019 PNA (pneumonia) 08/02/2019 Leukocytosis 04/13/2018 Moderate malnutrition (CMS/HCC) ([facility]) 04/13/2018 Shortness of breath 04/13/2018 DDD (degenerative disc disease), cervical 04/12/2018 Recurrent major depression ([facility]) 04/12/2018 Chronic back pain 04/10/2017 COPD (chronic obstructive pulmonary disease) ([facility]) 04/10/2017 Pulmonary nodule 04/10/2017 Sciatica 04/10/2017 Supplemental [...] Responsibilities: Independent Receives Help From: Family Active Architectural Engineering Teacher: No Prior Level of Function ADL Assistance: [...] of Care supervision is transferred to a [facility] Therapy Services Occupational Therapist. Goals and/or treatment plan was established in collaboration with patient/family/other representatives. * Jennifer Esparza, PT - 02/14/2023 8:36 AM EST Images from the original note were not included. PHYSICAL THERAPY [facility] Initial Evaluation Name/MRN: Gonzalo Deluca ([id number]) Evaluation Date: 02/14/2023 Date of : 1955 Admission Date: 02/13/2023 6:59 PM Age: 67 y.o. Room[facility]Bed: [facility] Discharge Recommendation: SNF and Continue to [...] test Allergic rhinitis Arthritis Asthma Bronchitis Cancer ([facility]) ([facility]) skin Cervical cancer ([facility]/HCC) ([facility]) Chest pain COPD (chronic obstructive pulmonary disease) ([facility]) USE OXYGEN 3 L AT NIGHT DDD (degenerative disc disease), cervical Defect, retina, with detachment right DJD (degenerative joint disease), lumbar Emphysema lung ([facility]) Former smoker Hematuria SCHEDULED FOR THE PROCEDURE /SURGERY ON 02/11/2017 Hypokalemia Lung nodules Osteoporosis Palpitations Pneumonia Recurrent major depression ([facility]) Sciatica Thoracic compression fracture ([facility]) Vitamin D deficiency Past Surgical History: Past Surgical History: Procedure Laterality Date CYSTOSCOPY 01/12/2017 OFFICE PROCEDURE CYSTOSCOPY 02/11/2017 C&P bladder biopsy EYE SURGERY detached retina 1994 HYSTERECTOMY 11/06/2019 ABDOMINAL RADICAL HYSTERECTOMY WITH BSO AND PELVIC LYMPH; DR[facility] ZIYAD MARISCAL [facility] OTHER SURGICAL HISTORY Left 12/19/2019 Med Port POWER Regular Size OTHER SURGICAL HISTORY Left 11/07/2022 Percutaneous skeltal fixation femoral fracture TUBAL LIGATION 1992 Admission Diagnosis: Patient Active Problem List Diagnosis Date Noted Lumbar compression fracture, closed, initial encounter ([facility]) 02/13/2023 Nondisplaced fracture of neck of left femur ([facility]) 11/06/2022 Other specified complication of vascular prosthetic devices, implants and grafts, initial encounter([facility]) 08/06/2021 Acute exacerbation of chronic obstructive pulmonary disease ([facility]) 04/12/2018 Poor venous access 12/19/2019 H/O: CVA (cerebrovascular accident) 12/14/2019 Malignant neoplasm of exocervix (HCC) 11/07/2019 S/P hysterectomy 11/07/2019 PNA (pneumonia) 08/02/2019 Leukocytosis 04/13/2018 Moderate malnutrition (CMS/HCC) ([facility]) 04/13/2018 Shortness of breath 04/13/2018 DDD (degenerative disc disease), cervical 04/12/2018 Recurrent major depression ([facility]) 04/12/2018 Chronic back pain 04/10/2017 COPD (chronic obstructive pulmonary disease) ([facility]) 04/10/2017 Pulmonary nodule 04/10/2017 Sciatica 04/10/2017 Supplemental [...] Responsibilities: Independent Receives Help From: Family Active Architectural Engineering Teacher: No Prior Level of Function ADL Assistance: [...] of Care supervision is transferred to a [facility] Therapy Services Physical Therapist. Goals and/or treatment plan was established in collaboration with patient/family/other representatives. documented in this [facility]11-30-2023 Nurse Note* ARMIN DE OLIVEIRA - 02/17/2023 6:09 PM EST Order for brace faxed to [employer] along with face sheet by Secretary Diaz [id number] Nurse Note* ARMIN DE OLIVEIRA - 02/17/2023 6:09 PM EST Order for brace faxed to [employer] along with face sheet by Secretary Diaz documented in this [facility]11-29-2023 Note* Care Coordination - SATURNINO Garcia - 02/16/2023 1:48 PM EST S/W, transport Transport sheet placed in patient paper chart for [facility] SN[facility]. [facility] [id number] Note* Care Coordination - SATURNINO Garcia - 02/16/2023 1:48 PM EST S/W, transport Transport sheet placed in patient paper chart for [facility] SN[facility]. [facility] [id number] Note* Care Coordination - Jordana Lowe RN - 02/16/2023 11:18 AM EST Images from the original note were not included. Care Management Progress Note Remains in HICU due to lumbar fracture. Bone scan planned for 02/17. Ortho following. [facility] able to accept pt. DIRECTOR NURSING SERVICE tasked to initiate insurance auth. Await insurance approval. Insurance approval received. Attending, ortho, RN & TITLE INSURANCE SALES REPRESENTATIVE notified. Pt to have bone scan tomorrowas [...] Stay (Days): 3 GMLOS: No GMLOS Documented [facility] [id number] Note* Care Coordination - Jordana Lowe RN - 02/16/2023 11:18 AM EST Images from the original note were not included. Care Management Progress Note Remains in HICU due to lumbar fracture. Bone scan planned for 02/17. Ortho following. [facility] able to accept pt. DIRECTOR NURSING SERVICE tasked to initiate insurance auth. Await insurance approval. Insurance approval received. Attending, faustina, RN & TITLE INSURANCE SALES REPRESENTATIVE notified. Pt to have bone scan tomorrowas [...] Stay (Days): 3 GMLOS: No GMLOS Documented [facility] [id number] Note* Care Coordination - Nidia Barahona - 02/15/2023 3:09 PM EST Referral placed to [facility] via [facility] per TCC request. Await review and response regarding ability to accept. TCC notified. [facility] [id number] Note* Care Coordination - Nidia Barahona - 02/15/2023 3:09 PM EST Referral placed to [facility] via [facility] per TCC request. Await review and response regarding ability to accept. TCC notified. [place] [id number] Note* Care Coordination - Ping Lazo RN - 02/15/2023 2:44 PM EST Care Managment Initial Assessment Date: 02/15/2023 Patient Name: Gonzalo Deluca : 1955 Patient Information Source of Information: Patient Cognition/Language: WFL - Within Functional Limits Permission given to speak with patient artists' booking representative/caregiver as indicated: Yes (Karishma Deluca dtr [phone]) Confirmation of Payer with patient/family: Yes Payer Name: [facility] Medicare [place]: No Confirmation of Primary Care Physician: Confirmed [...] SNF Discharge Planning Actions: Continue to follow, [facility] referral indicated [facility]: [facility] of [facility] discussed, Choice list provided (emailed to [email or web address]) Patient's Choice Rights and [employer] and Collaborative Relationships Disclosed as Indicated for Post-Acute Care: Yes Interdisciplinary Team Engagement: PT/OT Social Work Referral for: Additional Information: Patient admitted to [facility] for treatment of of Lumbar compression fracture. PT/OT recommends SNF. Spoke with patient over the phone. Explained role. Lives w/ daughter in two story home. Independentwith adls. Daughter and Son drives. +PCP, +RX cov, +DME, home oxygen. Discussed SNF. Emailed list to [email or web address]. She did inform me she was at [facility] and would be agreeable to go back there. DIRECTOR NURSING SERVICE tasked to make referral to [facility]. Did explained will need to confirm bedavailability and obtain insurance authorization. She demonstrates understanding. DCP: SNF, referral to [facility]. Other choices pending. Ping Lazo RN [facility] [id number] Note* Care Coordination - Ping Lazo RN - 02/15/2023 2:44 PM EST Care Managment Initial Assessment Date: 02/15/2023 Patient Name: Gonzalo Deluca : 1955 Patient Information Source of Information: Patient Cognition/Language: WFL - Within Functional Limits Permission given to speak with patient artists' booking representative/caregiver as indicated: Yes (Karishma Deluca dtr [phone]) Confirmation of Payer with patient/family: Yes Payer Name: [facility] Medicare [place]: No Confirmation of Primary Care Physician: Confirmed [...] SNF Discharge Planning Actions: Continue to follow, [facility] referral indicated [facility]: [facility] of [facility] discussed, Choice list provided (emailed to [email or web address]) Patient's Choice Rights and [employer] and Collaborative Relationships Disclosed as Indicated for Post-Acute Care: Yes Interdisciplinary Team Engagement: PT/OT Social Work Referral for: Additional Information: Patient admitted to [facility] for treatment of of Lumbar compression fracture. PT/OT recommends SNF. Spoke with patient over the phone. Explained role. Lives w/ daughter in two story home. Independentwith adls. Daughter and Son drives. +PCP, +RX cov, +DME, home oxygen. Discussed SNF. Emailed list to [email or web address]. She did inform me she was at [facility] and would be agreeable to go back there. DIRECTOR NURSING SERVICE tasked to make referral to [facility]. Did explained will need to confirm bedavailability and obtain insurance authorization. She demonstrates understanding. DCP: SNF, referral to [facility]. Other choices pending. Ping Lazo RN [facility]11-27-2023 Emergency department Note* Joaquina Guevara RN - 02/14/2023 9:20 AM EST Report called to Jameson WHITEHEAD at this time. Joaquina Guevara RN 02/14/23 0920 [facility] [id number] Emergency department Note* Joaquina Guevara RN - [...] Allergic rhinitis Arthritis Asthma Bronchitis Cancer (CMS/HCC) ([facility]) skin Cervical cancer (CMS/HCC) ([facility]) Chest pain COPD (chronic obstructive pulmonary disease) ([facility]) USE OXYGEN 3 L AT NIGHT DDD (degenerative disc disease), cervical Defect, retina, with detachment right DJD (degenerative joint disease), lumbar Emphysema lung ([facility]) Former smoker Hematuria SCHEDULED FOR THE PROCEDURE /SURGERY ON 02/11/2017 Hypokalemia Lung nodules Osteoporosis Palpitations Pneumonia Recurrent major depression ([facility]) Sciatica Thoracic compression fracture ([facility]) Vitamin D deficiency SURGICAL HISTORY Past Surgical [...] DEPARTMENT COURSE and DIFFERENTIAL DIAGNOSIS/MDM: Vitals: Vitals: 02/13/23 1905 BP: (!) 153/86 BP Location: Left arm [...] disposition. ED Course as of 02/17/23 0847 Sun Feb 13, 20232016 XR shoulder 2+ [...] are requesting placement back in rehab versus fpc facility. They states they are concerned about [...] Nancy Salas RN 02/13/232203 documented in this [facility]11-27-2023 Note* Home Care - Deanna Romero LPN - 02/14/2023 8:50 AM EST Patient is currently active with [facility]. The patients current certification period will on 03/28/23. The patient is currently receiving PT services through the agency. Head Piece Assembler to continue to follow. [facility] [id number] Note* Home Care - Deanna Romero LPN - 02/14/2023 8:50 AM EST Patient is currently active with [facility]. The patients current certification period will on 03/28/23. The patient is currently receiving PT services through the agency. Head Piece Assembler to continue to follow. [facility] [id number] Emergency department Note* Joaquina Guevara RN - 02/14/2023 8:27 AM EST Attempted Nurse to nurse via telephone at this time, Peter states they will call back. Joaquina Guevara RN 02/14/23 0828 [facility] [id number] Consult note* Betsey Gresham MD - 02/14/2023 [...] Allergic rhinitis Arthritis Asthma Bronchitis Cancer (CMS/HCC) ([facility]) skin Cervical cancer (CMS/HCC) ([facility]) Chest pain COPD (chronic obstructive pulmonary disease) ([facility]) USE OXYGEN 3 L AT NIGHT DDD [...] the consult we will follow with you. [facility]11-27-2023 Consult note* Betsey Gresham MD - 02/14/2023 7:[facility]): In[facility] consult to orthopaedic surgery-- Inpatient [...] nodules Osteoporosis Palpitations Pneumonia Recurrent major depression ([facility]) Sciatica Thoracic compression fracture ([facility]) Vitamin D deficiency Past Surgical History Past Surgical History: Procedure Laterality Date CYSTOSCOPY 01/12/2017 OFFICE PROCEDURE CYSTOSCOPY 02/11/2017 C&P bladder biopsy EYE SURGERY detached retina 1994 HYSTERECTOMY 11/06/2019 ABDOMINAL RADICAL HYSTERECTOMY WITH BSO AND PELVIC LYMPH; DR. ZIYAD MENENDEZ [facility] OTHER SURGICAL HISTORY Left 12/19/2019 Med Port [...] will follow with you. documented in this [facility]11-26-2023 History and physical note* Lauren Serna MD - 02/13/2023 11:12 PM EST Images from the original note were not included. History and Physical [facility] Gonzalo Deluca : 1955 AGE 67 [...] Chest pain COPD (chronic obstructive pulmonary disease) ([facility]) USE OXYGEN 3 L AT NIGHT DDD (degenerative disc disease), cervical Defect, retina, with detachment right DJD (degenerative joint disease), lumbar Emphysema lung ([facility]) Former smoker Hematuria SCHEDULED FOR THE PROCEDURE /SURGERY ON 02/11/2017 Hypokalemia Lung nodules Osteoporosis Palpitations Pneumonia Recurrent major depression ([facility]) Sciatica Thoracic compression fracture ([facility]) Vitamin D deficiency She is on 3 liters of oxygen all the time Past Surgical History: Procedure Laterality Date CYSTOSCOPY 01/12/2017 OFFICE PROCEDURE CYSTOSCOPY 02/11/2017 C&P bladder biopsy EYE SURGERY detached retina 1994 HYSTERECTOMY 11/06/2019 ABDOMINAL RADICAL HYSTERECTOMY WITH BSO AND PELVIC LYMPH; DR. ZIYAD MENENDEZ [facility] OTHER SURGICAL HISTORY Left 12/19/2019 Med Port [...] SpO2 98% BMI 22.47 kg/m Pulse Ox: [id number]: 98 % Min: 98 % Max: 98 [...] QT Interval 395 QTC Interval 473 P Momence 69 QRS Momence -35 T Wave Momence -12 MS Interval 152 Impression Sinus rhythm Inferior infarct, [...] x-ray left shoulder is negative for fracture [facility]ics has seen her in the past seeing her residential mortgage underwriter for the For now I will continue [...] to due risk bleed/procedure 02/13/2023 Gonzalo Deluca [id number] Any scheduled follow up appointments Future Appointments Date Time Provider Department Center 03/09/2023 11:15 AM Freddy Person MD [facility] None 04/22/2023 1:00 PM DB Durham CNP [facility] GEOTHERMAL TECHNICIAN None Extended Emergency Contact Information Primary Emergency Contact: Karishma Deluca Address: [address] [place] [address] [place] [address] [facility] Mobile Relation: Daughter Secondary Emergency Contact: Jace Deluca Mobile Relation: Son Portions of this note may be electronically transcribed. Please forward a copy of this H&P to the primary care physician. [place] Phone: [phone]) 148-742811-26-2023 History and physical note* Lauren Serna MD - 02/13/2023 11:12 PM EST Images from the original note were not included. History and Physical [facility] Gonzalo Reyesebnji : 1955 AGE 67 y.o. YEARS Note [...] Allergic rhinitis Arthritis Asthma Bronchitis Cancer (CMS/HCC) ([facility]) skin Cervical cancer (CMS/HCC) ([facility]) Chest pain COPD (chronic obstructive pulmonary disease) ([facility]) USE OXYGEN 3 L AT NIGHT DDD (degenerative disc disease), cervical Defect, retina, with detachment right DJD (degenerative joint disease), lumbar Emphysema lung ([facility]) Former smoker Hematuria SCHEDULED FOR THE PROCEDURE /SURGERY ON 02/11/2017 Hypokalemia Lung nodules Osteoporosis Palpitations Pneumonia Recurrent major depression ([facility]) Sciatica Thoracic compression fracture ([facility]) Vitamin D deficiency She is on 3 [...] SpO2 98% BMI 22.47 kg/m Pulse Ox: [id number]: 98 % Min: 98 % Max: 98 [...] QT Interval 395 QTC Interval 473 P Momence 69 QRS Momence -35 T Wave Momence -12 MS Interval 152 Impression Sinus rhythm Inferior infarct, [...] x-ray left shoulder is negative for fracture [facility] has seen her in the past seeing her residential mortgage underwriter for the For now I will continue [...] to due risk bleed/procedure 02/13/2023 Gonzalo Deluca [id number] Any scheduled follow up appointments Future Appointments Date Time Provider Department Center 03/09/2023 11:15 AM Freddy Person MD [facility] None 04/22/2023 1:00 PM DB Durham CNP [facility] GEOTHERMAL TECHNICIAN None Extended Emergency Contact Information Primary Emergency Contact: Karishma Deluca Address: [address] [place] [address] [place] [address] [facility] Mobile Relation: Daughter Secondary Emergency Contact: Jace Deluca Mobile Relation: Son Portions of this note may be electronically transcribed. Please forward a copy of this H&P to the primary care physician. documented in this [facility]11-26-2023 Emergency department Note* Anahi Harvey RN - 02/13/2023 6:59 PM EST Bed: 02 Expected date: Expected time: Means of arrival: Comments: Jean Harvey RN 02/13/23 1859 [place] [address]-26-2023 Emergency department Note* Nancy Salas RN - 02/13/2023 6:59 PM EST Bed: 16 Expected date: Expected time: Means of arrival: Comments: Room 2 Nancy Salas RN 02/13/232203 [id number] Emergency department Triage note* VERA Harper - 02/13/2023 6:59 PM EST Complaint of fall today injuring lower back and left shoulder. [place] [address]-26-2023 Physician Emergency department Note* Lorenzo Orozco MD [...] Allergic rhinitis Arthritis Asthma Bronchitis Cancer (CMS/HCC) ([facility]) skin Cervical cancer (CMS/HCC) ([facility]) Chest pain COPD (chronic obstructive pulmonary disease) ([facility]) USE OXYGEN 3 L AT NIGHT DDD (degenerative disc disease), cervical Defect, retina, with detachment right DJD (degenerative joint disease), lumbar Emphysema lung ([facility]) Former smoker Hematuria SCHEDULED FOR THE PROCEDURE /SURGERY ON 02/11/2017 Hypokalemia Lung nodules Osteoporosis Palpitations Pneumonia Recurrent major depression ([facility]) Sciatica Thoracic compression fracture ([facility]) Vitamin D deficiency SURGICAL HISTORY Past Surgical History: Procedure Laterality Date CYSTOSCOPY 01/12/2017 OFFICE PROCEDURE CYSTOSCOPY 02/11/2017 C&P bladder biopsy EYE SURGERY detached retina 1994 HYSTERECTOMY 11/06/2019 ABDOMINAL RADICAL HYSTERECTOMY WITH BSO AND PELVIC LYMPH; DR. ZIYAD MENENDEZ [facility] OTHER SURGICAL HISTORY Left 12/19/2019 Med Port [...] DEPARTMENT COURSE and DIFFERENTIAL DIAGNOSIS/MDM: Vitals: Vitals: 02/13/23 1905 BP: (!) 153/86 BP Location: Left arm [...] disposition. ED Course as of 02/17/23 0847 Sun Feb 13, 20232016 XR shoulder 2+ [...] are requesting placement back in rehab versus fpc facility. They states they are concerned about [...] Medicine Provider Lorenzo Orozco MD 02/17/23 0849 [facility]11-21-2023 Miscellaneous Notes* Telephone Encounter - Whit Shay LPN - 02/08/2023 9:57 AM EST Request completed and faxed. * Telephone Encounter - Herminia Case MD - 02/08/2023 9:48 AM EST Done. * Telephone Encounter - Whit Shay LPN - 02/07/2023 2:59 PM EST Type of letter/form/fax request - Home Health Care Orders Plan of Care Certification Period- 01/28/23 to 03/28/23 Form received from [facility] on 02/04/23 floor and placed on MD desk () for completion. Completed form needs to be faxed to [phone]. Route to [place] when form completed for processing documented in this encounterUniversity [facility]als [facility]11-20-2023 Miscellaneous Notes* Telephone Encounter - Tate Weathers MA - 02/07/2023 2:00 PM EST Last appointment: 01/14/23 Next appointment: 03/11/23 [facility] Refill(s) requested: Requested Prescriptions Pending Prescriptions Disp Refills QUEtiapine (SEROQUEL) 100 mg tablet [Pharmacy Med Name: QUETIAPINE FUMARATE 100 MG TAB] 180 tablet 1 Sig: TAKE 2 TABLETS BY MOUTH AT BEDTIME NEEDED Order(s) pended. Please advise. Tate Weathers MA, [facility] documented in this encounterUniversity Hospitals [facility] Center11-14-2023 History of Present illness Narrative* Agustina Romero MA - 02/01/2023 11:01 AM EST POPULATION HEALTH NAVIGATION OUTREACH Action/FYI Called and left a message to call [phone], to discuss health maintenance items that are due. Sent My Chart message. Patient Identified by Name and : NO Outreach Outcome/Action Unable to reach patient: Left message MyChart message sent Did you use a PCP flex slot to schedule this appointment? N/A Reason for Outreach Care Gap or Scheduling/Wellness visits Payer: Payor: [facility] MEDICARE / Plan: [facility] DUAL COMPLETE HMO POS SNP / [...] 01, 2023 11:02 AM documented in this encounterUniversity Hospitals [facility] Center11-14-2023 Miscellaneous Notes* Telephone Encounter - Whit Shay LPN - 02/01/2023 9:07 AM EST Request completed and faxed. * Telephone Encounter - Whit Shay LPN - 01/31/2023 3:36 PM EST Type of letter/form/fax request - Home Health Care Orders Form received from [facility] on 01/28/23 floor and placed on MD desk () for completion. Completed form needs to be faxed to [phone]. Route to [place] when form completed for processing documented in this encounterUniversity Hospitals [facility] Center11-09-2023 History of Present illness Narrative* Jo Chen MA - 01/27/2023 12:21 PM EST POPULATION HEALTH NAVIGATION OUTREACH Action/FYI Unable to leave Mychart message sent Mammogram Screening Never done Colorectal Cancer Screening Never done Patient Identified by Name and : NO Outreach Outcome/Action Unable to reach patient: Phone number not valid / voicemail full [employer] message sent Did you use a PCP flex slot to schedule this appointment? N/A Reason for Outreach Care Gap or Scheduling/Wellness visits Payer: Payor: [facility] MEDICARE / Plan: [facility] DUAL COMPLETE HMO POS SNP / [...] 27, 2023 12:21 PM documented in this encounterUniversity Hospitals [facility] Center11-06-2023 Miscellaneous Notes* Telephone Encounter - Whit Shay LPN - 01/24/2023 3:12 PM EST Request completed and faxed. * Telephone Encounter - Herminia Case MD - 01/24/2023 3:06 PM EST Done. * Telephone Encounter - Whti Shay LPN - 01/24/2023 2:42 PM EST Type of letter/form/fax request - Home Health Care Orders Form received from [facility] on 01/21/23 floor and placed on desk () for completion. Completed form needs to be faxed to [phone]. Route to [place] when form completed for processing documented in this encounterUniversity Hospitals [facility] Center11-03-2023 Miscellaneous Notes* Telephone Encounter - Rayo Roman Ma - 01/21/2023 1:45 PM EDT Type of letter/form/fax request - Home Health Care Orders Form received from [facility] on 01/21/23 floor and placed on MD desk () for completion. Completed form needs to be faxed to [phone]. Route to [place] when form completed for processing documented in this encounterUniversity Hospitals Lake [facility] Center10-30-2023 Miscellaneous Notes* Telephone Encounter - Whit Shay LPN - 01/17/2023 6:06 PM EDT Request completed and faxed. * Telephone Encounter - Whit Shay LPN - 01/17/2023 10:35 AM EDT Type of letter/form/fax request - Home Health Care Orders Form received from [facility] on 01/15/23 floor and placed on MD desk () for completion. Completed form needs to be faxed to [phone]. Route to [place] when form completed for processing documented in this [facility]10-27-2023 Instructions* Patient Instructions* Herminia Case MD [...] continue 60 mg duloxetine. documented in this [facility]10-27-2023 History of Present illness Narrative* Herminia [...] date: 1971 Quit date: 2018 Years since quittin.8 Smokeless tobacco: Never Tobacco [...] Vaccine(1) due on 2022 documented in this encounterUniversity Hospitals Lake West Medical Center10-20-2023 Miscellaneous Notes* Telephone Encounter - Melva Juárez PA-C - 01/07/2023 3:21 PM EDT Noted. Melva Juárez PA-C * Telephone Encounter - Teressa Macario - 01/07/2023 1:21 PM EDT Lake with [facility] calling to update that patient cancelled her appointment today becauseshe is not feeling well. Any questions, please call Lake @ [phone] documented in this encounterUniversity Hospitals Lake West Medical Center10-18-2023 Miscellaneous Notes* Telephone Encounter - Melva Juárez PA-C - 01/05/2023 5:12 PM EDT Noted. Melva Juárez PA-C * Telephone Encounter - Rayo Roman Ma - 01/05/2023 4:32 PM EDT FYI * Telephone Encounter - Teressa Macario - 01/05/2023 12:17 PM EDT Dianne from [facility] calling today to update that patient missed appointment today because she does not feel well. Patient is asking to hold off therapy until Tuesday. documented in this encounterUniversity Hospitals Lake West Medical Center10-12-2023 Miscellaneous Notes* Telephone Encounter - Whit Shay LPN - 12/30/2022 11:28 AM EDT Request completed and faxed. * Telephone Encounter - Herminia Case MD - 12/30/2022 11:18 AM EDT Done. * Telephone Encounter - Whit Shay LPN - 12/30/2022 9:28 AM EDT Type of letter/form/fax request - Home Health Care Orders Form received from [facility] on 12/29/22 floor and placed on MD desk () for completion. Completed form needs to be faxed to [phone]. Route to [place] when form completed for processing documented in this [facility]10-11-2023 Miscellaneous Notes* Telephone Encounter - Whit Shay LPN - 12/29/2022 8:43 AM EDT Request completed and faxed. * Telephone Encounter - Whit Shay LPN - 12/28/2022 2:00 PM EDT Type of letter/form/fax request - Home Health Care Orders Form received from [facility] on 12/27/22 floor and placed on MD desk () for completion. Completed form needs to be faxed to [phone]. Route to [place] when form completed for processing documented in this [facility]10-09-2023 Miscellaneous Notes* Telephone Encounter - Whit Shay LPN - 12/27/2022 3:41 PM EDT Request completed and faxed. * Telephone Encounter - Whit Shay LPN - 12/22/2022 8:26 AM EDT Type of letter/form/fax request - Home Health Care Orders Form received from [facility] on 12/21/22 floor and placed on MD desk () for completion. Completed form needs to be faxed to [phone]. Route to [place] when form completed for processing documented in this [facility]09-28-2023 Miscellaneous Notes* Telephone Encounter - Parul Sanderson OCCA - 12/16/2022 2:11 PM EDT Last appointment: 09/15/22 Next appointment: 01/14/23 [facility] Refill(s) requested: Requested Prescriptions Pending Prescriptions Disp Refills oxyCODONE-acetaminophen (PERCOCET) 5-325 mg tablet 134 tablet 0 Sig: Take 1 tablet by mouth every 4 hours as needed for pain for up to 30 days. Order(s) pended. Please advise,thank you. Parul GOMES December 16, 2022 2:12 PM documented in this encounterUniversity Hospitals Lake West Medical Center09-23-2023 Miscellaneous Notes* Telephone Encounter - Whit Shay LPN - 12/11/2022 8:37 AM EDT Home care Certification Form 485 received from [facility]. For cert dates 11/29/22 to 01/27/23 that were signed on 12/07/22. Recertification Patient's home health 485 form / care plan for stated certification period reviewed and signed. Relevant medical records were reviewed. No changes were indicated documented in this [facility]09-22-2023 Miscellaneous Notes* Telephone Encounter - Cayden [...] advise. Cayden Acevedo CMA documented in this [facility]09-21-2023 Miscellaneous Notes* Telephone Encounter - Whit Shay LPN - 12/09/2022 2:57 PM EDT Request completed and faxed. * Telephone Encounter - Herminia Case MD - 12/09/2022 2:49 PM EDT Done. * Telephone Encounter - Whit Shay LPN - 12/09/2022 2:16 PM EDT Type of letter/form/fax request - Home Health Care Orders Form received from [facility] on 12/07/22 floor and placed on MD desk () for completion. Completed form needs to be faxed to [phone]. Route to [place] when form completed for processing documented in this encounterUniversity Hospitals Lake West Medical Center09-21-2023 History of Present illness Narrative* Silvia Trejo Ma - 12/09/2022 10:45 AM EDT Spoke with patient. Patient states that she will complete it and send it in. documented in this encounterUniversity Hospitals Lake West Medical Center09-19-2023 Miscellaneous Notes* Telephone Encounter - Whit Shay LPN - 12/07/2022 4:19 PM EDT Request completed and faxed. * Telephone Encounter - Herminia Case MD - 12/07/2022 4:01 PM EDT Done. * Telephone Encounter - Whit Shay LPN - 12/07/2022 8:50 AM EDT Type of letter/form/fax request - Home Health Care Orders Form received from [facility] on 12/03/22 floor and placed on desk () for completion. Completed form needs to be faxed to [phone]. Route to [place] when form completed for processing documented in this encounterUniversity Hospitals Lake West Medical Center09-12-2023 Miscellaneous Notes* Telephone Encounter - Whit Shay LPN - 11/30/2022 9:33 AM EDT Called Leola from [facility] and relayed message below. She verbalized understanding. Whit Shay LPN * Telephone Encounter - Herminia Case MD - 11/29/2022 7:19 PM EDT yes * Telephone Encounter - Jessica Castro - 11/29/2022 4:41 PM EDT Leola Villanueva from [facility] health care is calling to confirm that Dr. Case will follow patient for home health care. Please call back to [phone] documented in this encounterUniversity Hospitals Lake West Medical Center09-05-2023 Miscellaneous Notes* Telephone Encounter - Simran Prasad Ma - 11/23/2022 7:49 PM EDT Date of last office visit : 09/15/2022 Date of next office visit : 01/14/2023 [facility] Refill(s) requested: Requested Prescriptions Pending Prescriptions Disp Refills SPIRIVA RESPIMAT 2.5 mcg/actuation inhaler [Pharmacy Med Name: SPIRIVA RESPIMAT 2.5 MCG INH] 3 Sig: INHALE 2 PUFFS BY MOUTH ONCE DAILY DIRECTED Order(s) pended. Please advise. Simran Prasad Ma, CMA documented in this encounterUniversity Hospitals Lake West Medical Center09-01-2023 Miscellaneous Notes* Telephone Encounter - Estee Amor LPN - 2022 4:01 PM EDT Pharmacy verified in Epic Patient [...] advise. Estee Amor LPN documented in this encounterUniversity Hospitals Lake West Medical Center08-31-2023 Miscellaneous Notes* Telephone Encounter - Madison Ceja - 11/18/2022 1:04 PM EDT Patient scheduled for sooner appointment * Telephone Encounter - Herminia Case MD - 11/18/2022 12:50 PM EDT Needs sooner appt for pain med refills. * Telephone Encounter - Parul Sanderson OCCA - 11/17/2022 12:54 PM EDT Last appointment: 09/15/22 Next appointment: 03/17/23 [facility] Refill(s) requested: Requested Prescriptions Pending Prescriptions Disp Refills oxyCODONE-acetaminophen (PERCOCET) 5-325 mg tablet 134 tablet 0 Sig: Take 1 tablet by mouth every 4 hours as needed for pain for up to 30 days. Order(s) pended. Please advise,thank you. Parul GOMES November 17, 2022 12:55 PM documented in this encounterUniversity Hospitals Lake West Medical Center08-28-2023 Miscellaneous Notes* Telephone Encounter - Maria Alejandra Reno MA - 11/15/2022 1:29 PM EDT [facility] Patient has been identified by [...] Maria Alejandra Reno MA documented in this encounterUniversity Hospitals Lake West Medical Center08-21-2023 Note* Care Coordination - SATURNINO Garcia - 11/08/2022 2:29 PM EDT S/W, follow up Patient discharged to [facility]. Transport set via [facility] at 430p. gas worker provided report number. I did visit patient in room to notify. Patient and myself did notify daughter karishma via speaker phone of transport this evening. [facility] [id number] Note* Care Coordination - SATURNINO Garcia - 11/08/2022 2:29 PM EDT S/W, follow up Patient discharged to [facility]. Transport set via [facility] at 430p. gas worker provided report number. I did visit patient in room to notify. Patient and myself did notify daughter karishma via speaker phone of transport this evening. [facility] [id number] Miscellaneous Notes* Care Coordination - SATURNINO Garcia - 11/08/2022 2:29 PM EDT S/W, follow up Patient discharged to [facility]. Transport set via [facility] at 430p. gas worker provided report number. I did visit patient in room to notify. Patient and myself did notify daughter karishma via speaker phone of transport this evening. * Care Coordination - Unknown Case Management - 11/08/2022 1:57 PM EDT Patient Choice Patient Name: GONZALO DELUCA Date of : 1955 All Providers Sent Referral Name: [facility] Phone: [phone] Address: [address] [place] [address] * Care Coordination - Phillip Gurrola RN - 11/08/2022 11:20 AM EDT Tasked DIRECTOR NURSING SERVICE to submit for auth for [facility]. . * Care Coordination - Phillip Gurrola RN - 11/08/2022 6:59 AM EDT Images from the original note were not included. Care Management Progress Note Awaiting therapy evals and recommendations. Per careport. [facility] is able to accept. Will [...] DO 11/06/2022 4:18 PM 11/08/2022 Austyn Mccann, 11/06/2022 3:22 PM Length of Stay (Days): [...] Isaac LPN - 11/07/2022 4:39 PM EDT Head Piece Assembler following case for Discharge Needs. * Care Coordination - Phillip Gurrola RN - 11/07/2022 4:20 PM EDT Care Managment Initial Assessment Date: 11/07/2022 Patient Name: Gonzalo Deluca : 1955 Patient Information Source of Information: Patient Name/Contact Information: KARISHMA DELUCA [phone] L[address]ELL AND JACE DELUCA SON [phone] Cognition/Language: WFL - Within Functional Limits Permission given to speak with patient artists' booking representative/caregiver as indicated: Yes Confirmation of Payer with patient/family: Yes Payer Name: [facility] DUAL COMPLETE [place]: No Confirmation of Primary Care Physician: Confirmed [...] Prescription Coverage: Yes Pharmacy Used: [facility] [place] Medication Management: Prescription pick-up Who assists with [...] Plan Patient expects to be [facility] Discharge Planning Actions: Halfway Facility referral indicated [facility] of choice: [facility] of choice discussed, Choice list provided Patient's [...] states she is planning discharging to a fpc facility and would like to go to facility in [place] where her daughter's friend works-[facility]. [facility] if bed is available and if [facility] is in network with patient's [facility]. Did instruct patient to choose 3 other facilities in case there is no bed available at [facility]. Will have home care follow peripherally should [...] femoral neck fracture Surgeon: Andres Ventura MD Diversity Specialist: Jono HARRIS Anesthesia: General Estimate blood loss: [...] the shift include Safety documented in this [facility]08-21-2023 Note* Care Coordination - Unknown Case Management - 11/08/2022 1:57 PM EDT Patient Choice Patient Name: GONZALO DELUCA Date of : 1955 All Providers Sent Referral Name: [facility] Phone: [phone] Address: [address] [place] [address] [facility] [id number] Note* Care Coordination - Unknown Case Management - 11/08/2022 1:57 PM EDT Patient Choice Patient Name: GONZALO DELUCA Date of : 1955 All Providers Sent Referral Name: [facility] Phone: [phone] Address: [address] [place] [address] [facility] [id number] Hospital Discharge instructions* Discharge Instr - SHAMA* [...] Minimal assistance Toileting Minimal assistance Feeding Independent Engine Specialist Minimal assistance Med Delivery no Wound Care [...] Score: @READMISSIONRISKDETAILS@ Discharging to Facility/ Agency Name: [facility] Address:[address] [place] [address] Phone:[phone] Fax: Dialysis Facility (if applicable) Name: Address: Dialysis Schedule: Phone: Fax: Senior Media Director/Rug Renovator signature: ICIAN SECTION Prognosis: excellent Condition at Discharge: stable Rehab Potential (if transferring to Rehab): excellent Recommended Labs or Other Treatments After Discharge: none Physician Certification: I certify the above information and transfer of Gonzalo Deluca is necessary for the continuing treatment of the diagnosis listed and that she requires fpc facility for less than 30 days. Update Admission H&P: No change in H&P PHYSICIAN SIGNATURE: documented in this [facility]08-21-2023 Hospital course Narrative* Raul Whipple DO - [...] Complexity: follow up within 7-14 calendar days (97565) [x] Severe Complexity: follow up within 7 calendar days (55344) Follow up Testing, Pending results or Referrals [...] frame. Signed: Raul Whipple DO [facility] 11/08/2022, 1:31 PM Total time Spent on Discharge: 21 minutes documented in this [facility]08-21-2023 History of Present illness Narrative* Raul Whipple DO - 11/08/2022 1:00 PM EDT Images from the original note were not included. Hospitalist Progress Note 11/08/[phone]: Please page nm ([phone]) for patient care issues. [phone]: Please page [facility] night Hospitalist for any issues. Subjective: Admit Date: 11/06/2022 PCP: HERMINIA CASE MD Room#: B4-453/B4453 A Interval History: No overnight issues. Denies [...] major depression (HCC) Sciatica Thoracic compression fracture ([facility]) Vitamin D deficiency LABS: CBC: Recent Labs [...] Relation: Child Raul Whipple DO [facility] PAGER: Epic chat * Betsey Gresham MD [...] 11/08/2022 10:19 AM EDT Occupational Therapy Facility/Department: [facility] Occupational Therapy Initial Evaluation NAME: Gonzalo Deluca [...] percutaneous screw fixation with Dr. Ventura, is WBAT Exam: AM-PAC Assistance / Modification: mod I-max A Activity Tolerance Activity Tolerance: Patient limited by fatigue Patient Diagnosis(es): The encounter diagnosis was Closed displaced intertrochanteric fracture of left femur, initial encounter ([facility]). has a past medical history of Abnormal stress test, Allergic rhinitis, Arthritis, Asthma, Bronchitis, Cancer ([facility]) ([facility]), Cervical cancer (CMS/HCC) ([facility]), Chest pain, COPD (chronic obstructive pulmonary disease) ([facility]), DDD (degenerative disc disease), cervical, Defect, retina, with detachment, DJD (degenerative joint disease), lumbar, Emphysema lung ([facility]), Former smoker, Hematuria, Hypokalemia, Lung nodules, Osteoporosis, Palpitations, Pneumonia, Recurrent major depression ([facility]), Sciatica, Thoracic compression fracture ([facility]), and Vitamin D deficiency. She has no past medical history of Blood circulation, collateral, Chronic kidney disease, Clotting disorder (CMS/HCC) ([facility]), Disease of blood and blood forming organ, GERD (gastroesophageal reflux disease), Liver disease, Movement disorder, Other disorders of kidney and ureter in diseases classified elsewhere, Seizures ([facility]), or Syncope and collapse. has a past [...] needed Therapy Time Individual Co-treatment Time In 08 Time Out 0833 (co eval with PT) Minutes 12 POC supervision transferred to rehab service department occupational therapist. Amy Brambila OT * Oseas King, PT - 11/08/2022 9:45 AM EDT Physical Therapy Facility/Department: [facility] Physical Therapy Initial Evaluation NAME: Gonzalo [...] fixation with Dr. Ventura is WBAT Exam: [facility] Clinical Presentation: Pt admitted 11/06 with s/p [...] intertrochanteric fracture of left femur, initial encounter ([facility]). has a past medical history of Abnormal stress test, Allergic rhinitis, Arthritis, Asthma, Bronchitis, Cancer (CMS/HCC) ([facility]), Cervical cancer (CMS/HCC) ([facility]), Chest pain, COPD (chronic obstructive pulmonary disease) ([facility]), DDD (degenerative disc disease), cervical, Defect, retina, with detachment, DJD (degenerative joint disease), lumbar, Emphysema lung (HCC), Former smoker, Hematuria, Hypokalemia, Lung nodules, Osteoporosis, Palpitations, Pneumonia, Recurrent major depression (HCC), Sciatica, Thoracic compression fracture ([facility]), and Vitamin D deficiency. She has no past medical history of Blood circulation, collateral, Chronic kidney disease, Clotting disorder (CMS/HCC) (HCC), Disease of blood and blood forming organ, GERD (gastroesophageal reflux disease), Liver disease, Movement disorder, Other disorders of kidney and ureter in diseases classified elsewhere, Seizures ([facility]), or Syncope and collapse. has a past [...] percutaneous screw fixation with Dr. Ventura, is WBAT Family / Caregiver Present: No [...] needed Therapy Time Individual Co-treatment Time In 08 (co-eval with OT) Time Out 0833 Minutes 12 Oseas King, PT * Josie Isaac - 11/08/2022 8:21 AM EDT Nutrition rescreen complete. Pt assigned a level one for nutrition care. * Raul Whipple DO - 11/07/2022 12:00 PM EDT Images from the original note were not included. Hospitalist Progress Note 11/07/2022 [phone]: Please page me ([phone]) for patient care issues. [phone]: Please page [facility] Hospitalist for any issues. Subjective: Admit Date: 11/06/2022 PCP: HERMINIA CASE MD Room#: B4-574/B4-763 A Interval History: No overnight issues. Denies [...] Relation: Child Raul Whipple DO [facility] PAGER: Epic chat documented in this encounterSAvita Health System Ontario [id number] Note* Care Coordination - Phillip Gurrola RN - 11/08/2022 11:20 AM EDT Tasked [facility] to submit for auth for [facility]. . [facility] [id number] Note* Care Coordination - Phillip Gurrola RN - 11/08/2022 11:20 AM EDT Tasked [facility] to submit for auth for [facility]. . [facility] [id number] Nurse Note* Austyn Bee RN - 11/08/2022 10:58 AM EDT Pt. found with vape in bed. When asking pt. about using the vape, pt stated, "I have been using this since I've been here" Patient educated on no smoking/vaping policy. Vape removed and placed in chart box. Protective services notified. Dr. Whipple notified. See orders. [facility] [id number] Nurse Note* Austyn Bee RN - 11/08/2022 10:58 AM EDT Pt. found with vape in bed. When asking pt. about using the vape, pt stated, "I have been using this since I've been here" Patient educated on no smoking/vaping policy. Vape removed and placed in chart box. Protective services notified. Dr. Whipple notified. See orders. documented in this encounterSAvita Health System Ontario HospitalHyorig18-79-5674 Miscellaneous Notes* Telephone Encounter - Whit Shay LPN - 11/08/2022 8:17 AM EDT Medication is pended. Last visit: 09/15/22 Next visit: 03/17/23 documented in this encounterUniversity Hospitals Lake West Medical Center08-21-2023 Note* Care Coordination - Phillip Gurrola RN - 11/08/2022 6:59 AM EDT Images from the original note were not included. Care Management Progress Note Awaiting therapy evals and recommendations. Per careport. [facility] is able to accept. Will [...] DO 11/06/2022 4:18 PM 11/08/2022 Austyn Mccann, 11/06/2022 3:22 PM Length of Stay (Days): 2 GMLOS: No GMLOS Documented . [facility] [id number] Note* Care Coordination - Phillip Gurrola RN - 11/08/2022 6:59 AM EDT Images from the original note were not included. Care Management Progress Note Awaiting therapy evals and recommendations. Per careport. [facility] is able to accept. Will need insurance [...] Date/Time Set By Reviewed At 11/08/2022 Austyn Mccann, 11/06/2022 4:18 PM 11/08/2022 Austyn Mccann, DO 11/06/2022 3:22 PM Length of Stay (Days): 2 GMLOS: No GMLOS Documented . [facility] [id number] Plan of care note* Care Plan - Tona Barroso RN - 11/07/2022 9:03 PM EDT The patient is Moderately Stable - Low risk of patient condition declining or worsening The patient's goals for the shift include "Pain control and rest." The clinical goals for the shift include Safety [facility] [id number] Note* Home Care - Rosa Elena Isaac LPN - 11/07/2022 4:39 PM EDT Head Piece Assembler following case for Discharge Needs. [facility] [id number] Note* Home Care - Rosa Elena Isaac LPN - 11/07/2022 4:39 PM EDT Head Piece Assembler following case for Discharge Needs. [place] [id number] Note* Care Coordination - Phillip Gurrola RN - 11/07/2022 4:20 PM EDT Care Managment Initial Assessment Date: 11/07/2022 Patient Name: Gonzalo Deluca : 1955 Patient Information Source of Information: Patient Name/Contact Information: KARISHMA DELUCA [phone] FELISHADeirdre AND JACE DELUCA SON [phone] Cognition/Language: WFL - Within Functional Limits Permission given to speak with patient artists' booking representative/caregiver as indicated: Yes Confirmation of Payer with patient/family: Yes Payer Name: [facility] DUAL COMPLETE : No Confirmation of [...] Prescription Coverage: Yes Pharmacy Used: [facility] [place] Medication Management: Prescription pick-up Who assists with [...] Plan Patient expects to be discharged to: [facility] Discharge Planning Actions: Halfway Facility referral indicated [facility] of choice: [facility] of choice discussed, Choice list provided Patient's [...] states she is planning discharging to a fpc facility and would like to go to facility in [place] where her daughter's friend works-[facility]. [facility] to determine if bed is available and if fa cility is in network with patient's [facility]. Did instruct patient to choose 3 other facilities in case there is no bed available at [facility]. Will have home care follow peripherally should therapy recommend home with hhc. Tentative discharge plan is home with hhc vs snf when medically stable/accepting facility and auth obtained. Phillip Gurrola RN [facility] [id number] Note* Care Coordination - Phillip Gurrola RN - 11/07/2022 4:20 PM EDT Care Managment Initial Assessment Date: 11/07/2022 Patient Name: Gonzalo Deluca : 1955 Patient Information Source of Information: Patient Name/Contact Information: KARISHMA DELUCA [phone] LOWELL AND JACE DELUCA SON [phone] Cognition/Language: WFL - Within Functional Limits Permission given to speak with patient artists' booking representative/caregiver as indicated: Yes Confirmation of Payer with patient/family: Yes Payer Name: [facility] D[facility]TE : No Confirmation of [...] floor Facility: Facility Name: Plan to Return: No Lives with: Children (DAUGHTER, DAUGHTER'S BOYFRIEND AND 6 YR OLD GRANDDAUGHTER) Support Systems: Children Activities of Daily Living Ambulation: Independent Bathing/Dressing: Independent Elimination/Continence/Toileting: Independent Feeding: Independent Who Assists with Activities of Daily Living: NA Instrumental Activities of Daily Living Prescription Coverage: Yes Pharmacy Used: [facility] [place] Medication Management: Prescription pick-up Who assists with [...] Plan Patient expects to be discharged to: [facility] Discharge Planning Actions: Halfway Facility referral indicated [facility] of choice: [facility] of choice discussed, Choice list provided Patient's [...] states she is planning discharging to a fpc facility and would like to go to facility in [place] where her daughter's friend works-[facility]. Will place referral in careport to determine if bed is available and if fa cility is in network with patient's [facility]. Did instruct patient to choose 3 other facilities in case there is no bed available at [facility]. Will have home care follow peripherally should therapy recommend home with hhc. Tentative discharge plan is home with hhc vs snf when medically stable/accepting facility and auth obtained. Phillip Gurrola RN T [facility] [id number] Note* Op Note - Andres Ventura MD - 11/07/2022 8:14 AM EDT Preoperative diagnosis: Left nondisplaced valgus impacted subcapital femoral neck fracture Postoperative diagnosis: Same Procedure: Percutaneous cannulated screw fixation left femoral neck fracture Surgeon: Andres Ventura MD Diversity Specialist: Jono HARRIS Anesthesia: General Estimate blood loss: [...] was taken to recovery in stable condition. T [facility] [id number] Note* Op Note - Andres Ventura MD - 11/07/2022 8:14 AM EDT Preoperative diagnosis: Left nondisplaced valgus impacted subcapital femoral neck fracture Postoperative diagnosis: Same Procedure: Percutaneous cannulated screw fixation left femoral neck fracture Surgeon: Andres Ventura MD Diversity Specialist: Jono HARRIS Anesthesia: General Estimate blood loss: [...] to recovery in stable condition. [facility] [id number] Plan of care note* Care Plan - Tona Barroso RN - 11/06/2022 11:24 PM EDT The patient is Moderately Stable - Low risk of patient condition declining or worsening The patient's goals for the shift include "Pain control and rest." The clinical goals for the shift include Safety T [facility] [id number] Consult note* Andres Ventura MD - 11/06/2022 [...] area to obtain informed consent. [facility] [id number] Consult note* Andres Ventura MD - 11/06/2022 [...] to obtain informed consent. documented in this [facility]08-19-2023 Emergency department Note* Gwen Solorzano RN - 11/06/2022 4:06 PM EDT Spoke with patient about which medications she has taken today, patient states that she take all medications nightly. Change medications to be given nightly. Gwen Solorzano RN 11/06/22 [address] [id number] Emergency department Note* Gwen Solorzano RN - 11/06/2022 4:06 PM EDT Spoke with patient about which medications she has taken today, patient states that she take all medications nightly. Change medications to be given nightly. Gwen Solorzano RN 11/06/22 160 * VERA Kraft - 11/06/2022 1:02 PM [...] Allergic rhinitis Arthritis Asthma Bronchitis Cancer (CMS/HCC) ([facility]) skin Cervical cancer (CMS/HCC) (HCC) Chest pain COPD (chronic obstructive pulmonary disease) ([facility]) USE OXYGEN 3 L AT NIGHT DDD (degenerative disc disease), cervical Defect, retina, with detachment right DJD (degenerative joint disease), lumbar Emphysema lung (HCC) Former smoker Hematuria SCHEDULED FOR THE PROCEDURE /SURGERY ON 02/11/2017 Hypokalemia Lung nodules Osteoporosis Palpitations Pneumonia Recurrent major depression ([facility]) Sciatica Thoracic compression fracture (HCC) Vitamin D deficiency SURGICAL HISTORY Past Surgical [...] agreeable. Patient's care was impacted by COPD. Bryanna Mccann DO am the primary special education teacher of record. PROCEDURES: Unless otherwise noted below, none Procedures FINAL IMPRESSION 1. Closed displaced intertrochanteric fracture of left femur, initial encounter ([facility]) DISPOSITION Admit 11/06/2022 03:22:00 PM PATIENT REFERRED [...] Verdugo RN 11/06/22 1250 documented in this [facility]08-19-2023 History and physical note* Raul Whipple DO [...] and Asthma, HLD, anxiety/depression. who presents to [facility] on 11/06/2022 with chief complaint of fall [...] Allergic rhinitis Arthritis Asthma Bronchitis Cancer (CMS/HCC) ([facility]) skin Cervical cancer (CMS/HCC) ([facility]) Chest pain COPD (chronic obstructive pulmonary disease) ([facility]) USE OXYGEN 3 L AT NIGHT DDD (degenerative disc disease), cervical Defect, retina, with detachment right DJD (degenerative joint disease), lumbar Emphysema lung ([facility]) Former smoker Hematuria SCHEDULED FOR THE PROCEDURE /SURGERY ON 02/11/2017 Hypokalemia Lung nodules Osteoporosis Palpitations Pneumonia Recurrent major depression ([facility]) Sciatica Thoracic compression fracture ([facility]) Vitamin D deficiency Past Surgical History: Past Surgical History: Procedure Laterality Date CYSTOSCOPY 01/12/2017 OFFICE PROCEDURE CYSTOSCOPY 02/11/2017 C&P bladder biopsy EYE SURGERY detached retina 1994 HYSTERECTOMY 11/06/2019 ABDOMINAL RADICAL HYSTERECTOMY WITH BSO AND PELVIC LYMPH; DR. ZIYAD MENENDEZ [facility] OTHER SURGICAL HISTORY Left 12/19/2019 Med Port [...] Karishma Deluca Relation: Child Secondary Emergency Contact: RaudelsumeetJace leblanc Relation: Child Code status: Prior -see below for additional orders, further recommendations to follow Orders Placed This Encounter Procedures XR hip left 2 or 3 views XR hand 3+ views right XR ribs 2 views left Basic metabolic panel CBC Inpatient consult to orthopaedic surgery-- Admit to inpatient Please forward a copy of this H&P to the patient's PCP. Thank you. [facility] [id number] History and physical note* Raul Whipple DO [...] and Asthma, HLD, anxiety/depression. who presents to [facility] on 11/06/2022 with chief complaint of fall [...] Allergic rhinitis Arthritis Asthma Bronchitis Cancer (CMS/HCC) ([facility]) skin Cervical cancer (CMS/HCC) ([facility]) Chest pain COPD (chronic obstructive pulmonary disease) ([facility]) USE OXYGEN 3 L AT NIGHT DDD (degenerative disc disease), cervical Defect, retina, with detachment right DJD (degenerative joint disease), lumbar Emphysema lung ([facility]) Former smoker Hematuria SCHEDULED FOR THE PROCEDURE /SURGERY ON 02/11/2017 Hypokalemia Lung nodules Osteoporosis Palpitations Pneumonia Recurrent major depression ([facility]) Sciatica Thoracic compression fracture ([facility]) Vitamin D deficiency Past Surgical History: Past Surgical History: Procedure Laterality Date CYSTOSCOPY 01/12/2017 OFFICE PROCEDURE CYSTOSCOPY 02/11/2017 C&P bladder biopsy EYE SURGERY detached retina 1994 HYSTERECTOMY 11/06/2019 ABDOMINAL RADICAL HYSTERECTOMY WITH BSO AND PELVIC LYMPH; DR. ZIYAD MENENDEZ [facility] OTHER SURGICAL HISTORY Left 12/19/2019 Med Port [...] patient's PCP. Thank you. documented in this [facility]08-19-2023 Emergency department Note* VERA Kraft - 11/06/2022 1:02 PM EDT Guided Karishma back VERA Kraft 11/06/22 [id number] Emergency department Note* VERA Kraft - 11/06/2022 12:57 PM EDT Introduced myself as pt liaison and explaiined role and provided support to daughter Karishma in [place] , pt arrived via EMS. VERA Kraft 11/06/22 1258 [id number] Emergency department Note* Shelley Verdugo RN - 11/06/2022 12:49 PM EDT Bed: 04 Expected date: Expected time: Means of arrival: Comments: Jean 67/F Fall with L hip pain Shelley Verdugo RN 11/06/22 [address]250 [id number] Emergency department Triage note* Gwen Solorzano RN - 11/06/2022 12:49 PM EDT Patient presents to the ED via EMS. Patient had a mechanical fall in her room due to tripped over her feet. Patient denies hitting head. Patient states she has balance issues at baseline and uses assistance to walk. Patient is resting comfortably with family at bedside. [id number] Physician Emergency department Note* Austyn Mccann DO [...] Allergic rhinitis Arthritis Asthma Bronchitis Cancer (CMS/HCC) ([facility]) skin Cervical cancer (CMS/HCC) ([facility]) Chest pain COPD (chronic obstructive pulmonary disease) ([facility]) USE OXYGEN 3 L AT NIGHT DDD (degenerative disc disease), cervical Defect, retina, with detachment right DJD (degenerative joint disease), lumbar Emphysema lung ([facility]) Former smoker Hematuria SCHEDULED FOR THE PROCEDURE /SURGERY ON 02/11/2017 Hypokalemia Lung nodules Osteoporosis Palpitations Pneumonia Recurrent major depression ([facility]) Sciatica Thoracic compression fracture ([facility]) Vitamin D deficiency SURGICAL HISTORY Past Surgical History: Procedure Laterality Date CYSTOSCOPY 01/12/2017 OFFICE PROCEDURE CYSTOSCOPY 02/11/2017 C&P bladder biopsy EYE SURGERY detached retina 1994 HYSTERECTOMY 11/06/2019 ABDOMINAL RADICAL HYSTERECTOMY WITH BSO AND PELVIC LYMPH; DR. ZIYAD MENENDEZ [facility] OTHER SURGICAL HISTORY Left 12/19/2019 Med Port [...] COPD. I Austyn Mccann DO am the primary special education teacher of record. PROCEDURES: Unless otherwise noted below, none Procedures FINAL IMPRESSION 1. Closed displaced intertrochanteric fracture of left femur, initial encounter ([facility]) DISPOSITION Admit 11/06/2022 03:22:00 PM PATIENT REFERRED [...] Medicine Provider Austyn Mccann DO 11/06/22 1523 [id number] Telephone encounter Note* Telephone Encounter - DB Kohli CNP - 10/27/2022 11:01 AM EDT With normal HPV and Pap I left a message encouraged patient to call back with any questions or concerns [employer] [facility] [facility] Work Phone: 1(256) 294-584108-09-2023 Miscellaneous Notes* Telephone Encounter - DB Kohli CNP - 10/27/2022 11:01 AM EDT With normal HPV and Pap I left a message encouraged patient to call back with any questions or concerns documented in this [facility]08-04-2023 Miscellaneous Notes* Telephone Encounter - Whit Shay LPN - 10/22/2022 1:01 PM EDT Last appointment: 09/15/22 Next appointment: 03/17/23 Pharm[facility]. Refill(s) requested: Requested Prescriptions Pending Prescriptions Disp Refills sertraline (ZOLOFT) 100 mg tablet [Pharmacy Med Name: SERTRALINE HCL 100 MG TABLET] 180 tablet 1 Sig: TAKE 2 TABLETS BY MOUTH EVERY DAY Order(s) pended. Please advise. Whit Shay LPN, CMA documented in this [facility]08-03-2023 Miscellaneous Notes* Telephone Encounter - Whit Shay LPN - 10/21/2022 12:55 PM EDT Last appointment: 09/15/22 Next appointment: 03/17/23 Pharmacy verified [facility]. Refill(s) requested: Requested Prescriptions Pending Prescriptions Disp Refills oxyCODONE-acetaminophen (PERCOCET) 5-325 mg tablet 134 tablet 0 Sig: Take 1 tablet by mouth every 4 hours as needed for pain for up to 30 days. Order(s) pended. Please advise. Whit Shay LPN, CMA documented in this [facility]08-02-2023 History of Present illness Narrative* DB Kohli CNP - 10/20/2022 2:00 PM EDT @LOGOIMAGE@ Chief [...] nodules Osteoporosis Palpitations Pneumonia Recurrent major depression ([facility]) Sciatica Thoracic compression fracture ([facility]) Vitamin D deficiency Past Surgical History: Procedure Laterality Date CYSTOSCOPY 01/12/2017 OFFICE PROCEDURE CYSTOSCOPY 02/11/2017 C&P bladder biopsy EYE SURGERY detached retina 1994 HYSTERECTOMY 11/06/2019 ABDOMINAL RADICAL HYSTERECTOMY WITH BSO AND PELVIC LYMPH; DR. ZIYAD MENENDEZ [facility] OTHER SURGICAL HISTORY Left 12/19/2019 Med Port POWER Regular Size TUBAL LIGATION 1993 @MEDCMED@ Allergies as of 10/20/2022 - Reviewed [...] recognition. I apologize for minor errors in labor expediter which may be present. documented in this [facility]06-28-2023 History of Present illness Narrative* Melva Sandoval PA-C - 09/15/2022 2:46 PM EDT Gonzalo Deluca is a 66 year old female here today for routine follow up. COPD: Lungs feel junky. Increased sob since air quality became poor. +productive cough. Requesting prednisone and antibiotic. Has appt with ultrasound specialist in [place] in September. Declines antitrypsin blood draw. Using [...] BONE DENSITY Never done documented in this encounterUniversity Hospitals [facility] Center05-12-2023 Miscellaneous Notes* Telephone Encounter - Silvia Trejo Ma - 07/30/2022 11:26 AM EDT [facility] Patient has been identified by [...] advise. Silvia Trejo Ma documented in this encounterUniversity Hospitals Lake [facility] Center05-09-2023 Miscellaneous Notes* Telephone Encounter - Whit Shay LPN - 07/27/2022 3:24 PM EDT Last appointment: 06/03/22 Next appointment: 09/03/22 Pharmacy verified in [facility]. Refill(s) requested: Requested Prescriptions Pending Prescriptions Disp Refills cyclobenzaprine (FLEXERIL) 5 mg tablet 30 tablet 2 Sig: Take 1 tablet by mouth twice daily as needed. oxyCODONE-acetaminophen (PERCOCET) 5-325 mg tablet 134 tablet 0 Sig: Take 1 tablet by mouth every 4 hours as needed for pain for up to 30 days. Order(s) pended. Please advise. Whit Shay LPN, CMA documented in this encounterUniversity Hospitals Lake West Medical Center04-14-2023 Miscellaneous Notes* Telephone Encounter - Melva Sandoval PA-C - 07/02/2022 3:24 PM EDT Noted. Melva Sandoval PA-C * Telephone Encounter - Imelda Jay - 07/02/2022 3:11 PM EDT Laurie HARRISON from [email or web address] is calling Herminia Case MD today to inform provider as an Patient Update (Cancelled her home OT visit today due to illness )please be advised. Patient was not feeling well. [phone]. Patient has been identified by name and birthdate. Duration of symptoms: N/A Person calling: Laurie HARRISON Call patient at: n/a [phone] (home) [phone] (cell) Was an appointment scheduled: No Closing statement: Results or non-symptom based questions: Thank you for calling [facility], your call will be returned within the next business day. Imelda Hull Pss documented in this encounterUniversity Hospitals Lake West Medical Center04-13-2023 Miscellaneous Notes* Telephone Encounter - Whit Shay LPN - 07/01/2022 3:25 PM EDT Request completed and faxed. * Telephone Encounter - Herminia Case MD - 07/01/2022 3:00 PM EDT Done. * Telephone Encounter - Whit Shay LPN - 07/01/2022 10:35 AM EDT Type of letter/form/fax request - Home Health Care Orders Form received from [facility] on 06/30/22 floor and placed on MD desk () for completion. Completed form needs to be faxed to [phone]. Route to [place] when form completed for processing documented in this encounterUniversity Hospitals Lake West Medical Center04-12-2023 Miscellaneous Notes* Telephone Encounter - Ruddy Moreno RN - 06/30/2022 7:20 PM EDT Laurie from [facility] informed. Advised to call back with any further concerns or questions. * Telephone Encounter - Melva Sandoval PA-C - 06/30/2022 7:13 PM EDT I am not aware of any concerning interactions. Melva Sandoval PA-C * Telephone Encounter - Ruddy Moreno RN - 06/30/2022 7:07 PM EDT CHRISTY [facility]. Their computer program alerted her to "possible interaction" and they have to call and notify provider with all alerts. There are no concerns or symptoms to report. * Telephone Encounter - Melva Sandoval PA-C - 06/30/2022 7:02 PM EDT I am not aware of any interaction between the two. Can they clarify? Thanks Melva Sandoval PA-C * Telephone Encounter - Kita Pedroza - 06/30/2022 3:10 PM EDT Gonzalo Deluca, dino [facility] is calling Herminia Case MD today to advise ofa possible medication interaction, the albuterol sulfate with the cyclobenzaprine. This is noted they are advised to call provider with this information Laurie [phone] (verified) Patient has been identified by name and birthdate. Duration of symptoms: N/A Person calling: [facility] Call patient at: at home [phone] (home) [phone] (cell) Was an appointment scheduled: No Closing statement: Results or non-symptom based questions: Thank you for calling [facility], your call will be returned within the next business day. [facility]ita [facility] Electronically signed by Kita Christiansen [facility] at 06/30/2022 3:15 PM EDT documented in this encounterUniversity Hospitals Lake West Medical Center04-04-2023 Miscellaneous Notes* Telephone Encounter - Rocio Westfall [...] care. Please fax machine order. Thanks Melva Sandoavl PA-C * Telephone Encounter - Whit Carey RN - 06/22/2022 2:46 PM EDT Voicemail received June 22, 2022 1338 Hi there, my name is Rina, I am an occupational therapist with [employer]. I am callingabout patient Gonzalo Deluca, date [...] emergency inhalers. Also needed to report that ryan had a fall, on the , which was last . In the bathroom, she said her feet slipped out from underneath her, said she landed on her butt. She has seen Dr. Gresham since then and no concerns for elbow and shoulder which had been broken. I think that is it. If you have any questions for me I can be reached at [phone]. Thank you" Spoke with patient Complaints of sinus pain and pressure with nasal congestion Yellow nasal discharge Productive cough, yellow green phlegm Onset 06/20/22 Reports nebulizer broke a few years ago and asking for replacement order to be sent to [facility] Will need aerosol prescription also Patient is [...] : NA Protocols used: Sinus Pain or [id number] documented in this encounterUniversity Hospitals Lake West Medical Center04-04-2023 Miscellaneous Notes* Telephone Encounter - Bernadette Rubin MA - 06/22/2022 3:55 PM EDT Last appointment: 06/03/22 Next appointment: 09/03/22 Pharmacy verified in [facility]. Refill(s) requested: Requested Prescriptions Pending Prescriptions Disp Refills albuterol (PROVENTIL) 2.5 mg /3 mL (0.083 %) nebulizer solution [Pharmacy Med Name: ALBUTEROL SUL 2.5 MG/3 ML SOLN] 90 mL 1 Sig: INHALE 3 ML VIA NEBULIZER EVERY 4 HOURS NEEDED FOR WHEEZE OR FOR SHORTNESS OF BREATH Order(s) pended. Please advise. Bernadette Rubni MA, DIRECTOR NURSING SERVICE documented in this [facility]04-04-2023 Miscellaneous Notes* Telephone Encounter - Whit Shay LPN - 06/22/2022 1:16 PM EDT Request completed and faxed. * Telephone Encounter - Herminia Case MD - 06/22/2022 12:59 PM EDT Done. * Telephone Encounter - Whit Shay LPN - 06/22/2022 11:38 AM EDT Type of letter/form/fax request - Home Health Care Orders Form received from [facility] on 06/21/22 floor and placed on MD desk () for completion. Completed form needs to be faxed to [phone]. Route to [place] when form completed for processing documented in this [facility]03-27-2023 Miscellaneous Notes* Telephone Encounter - Whit Shay LPN - 06/14/2022 12:32 PM EDT Request completed and faxed. * Telephone Encounter - Herminia Case MD - 06/14/2022 12:18 PM EDT Done. * Telephone Encounter - Whit Shay LPN - 06/14/2022 10:48 AM EDT Type of letter/form/fax request - Home Health Care Orders Form received from [facility] on 06/13/22 floor and placed on MD desk () for completion. Completed form needs to be faxed to [phone]. Route to [place] when form completed for processing documented in this encounterUniversity Hospitals Lake West Medical Center03-16-2023 History of Present illness Narrative* Herminia Case MD - 06/03/2022 3:34 PM EDT VIRTUAL VISIT PROGRESS NOTE This is a virtual visit using [employer] video visit. It required patient-provider interaction for themedical decision making as documented below. Gonzalo Deulca is a 66 year old female seen for follow up. Admitted 05/21-05/24 at [facility] none Fell on 05/21 Missed a [...] visit. Herminia Case MD documented in this encounterUniversity Hospitals Lake West Medical Center03-14-2023 Miscellaneous Notes* Telephone Encounter - Whit Shay LPN - 06/01/2022 10:42 AM EDT Request completed and faxed. * Telephone Encounter - Herminia Case MD - 06/01/2022 9:53 AM EDT Done. * Telephone Encounter - Whit Shay LPN - 06/01/2022 9:28 AM EDT Type of letter/form/fax request - Home Health Care Orders Form received from [facility] on 05/28/22 floor and placed on MD desk () for completion. Completed form needs to be faxed to [phone]. Route to [place] when form completed for processing documented in this encounterUniversity Hospitals Lake West Medical Center03-13-2023 Miscellaneous Notes* Telephone Encounter - Herminia Case MD - 05/31/2022 8:22 PM EDT Noted. * Telephone Encounter - Jessica Whitley Pss - 05/31/2022 4:09 PM EDT Rina is an occupational therapist for [facility] and is calling to let Dr. Case know that the patient cancelled her occupational therapy visit last and has put the therapist off until Tuesday (although she has not set up a time yet). Patient's occupational therapy is delayed. Rina [phone] documented in this encounterUniversity Hospitals Lake West Medical Center03-06-2023 Note* Care Coordination - Janet Jean RN - 05/24/2022 11:11 AM EST Pt remains on 1E, plan for discharge today. Spoke with pt at bedside, she states she wants to discharge home with daughter. MONTEIRO notified, pt confirms she has transportation home and they will bring her 02 to pick her up. Wears 2L NC. Plan for pt to discharge home with HHC. [facility] to assist and followas needed. [facility] [id number] Note* Care Coordination - Janet Jean RN [...] to assist and followas needed. [facility] [id number] Miscellaneous Notes* Care Coordination - Janet Jean [...] 180 by Nicole Swift RN Outcome: Progressing * Care Coordination - Unknown Case Management - 05/23/2022 2:13 PM EST Patient Choice Patient Name: GONZALO DELUCA Date of : 1955 All Providers Sent Referral Name: [facility] Phone: [phone] Address: [address] [place] [address] * Home Care - Mahsa Castor RN - 05/23/2022 2:03 PM EST Start PACC Note Home Health Referral Educated patient on Home Care and services available. Patient offered choice of available HHC and agreeable to PT/OT services with [facility]. Care [...] is noted as yes - consider a AIRCRAFT ENGINEER evaluation once the patient returns home. START PATIENT REGISTRATION INFORMATION Order Information Order Signing Physician: Teresa Cedillo MD Service Ordered RN ?: No Service Ordered PT ?: Yes Service Ordered OT ?: Yes Service Ordered ST ?: No Service Ordered AIRCRAFT ENGINEER?:No Service Ordered MIXER ATTENDANT?: No Following Physician: HERMINIA CASE MD Following Physician Overseeing Physician: HERMINIA CASE MD (Required for Residents only) Agreeable to Follow? Office closed Date/Time of Call 05/23/22 2:04 PM Care Coordination SOC Call from [facility] Required?: No Same Day SOC?: No Primary Care Physician: HERMINIA CASE MD Primary Care Physician Primary Care Physician Address: [address] [place] [id number] Visit Instructions: N/A Service Discharge Location Type: Home with Home Health Care Service Facility Name: N/A Service Floor Facility: N/A Service Room No: N/A Demographics Patient Last Name: Yosi Patient First Name: Gonzalo Language/Communication Barrier: n/a Service Address: [address] [place] [address] Service City: [facility] ST: [place] Service ZIP: [address] Service (home) Other phone numbers: Telephone Information: Emergency Contact: Extended Emergency Contact Information Primary Emergency Contact: Karishma Deluca Relation: Child Secondary Emergency Contact: Jace Deluca Relation: Child Admission Information Admit Date: 05/21/2022 Patient status at discharge: Observation Caregiver Information Caregiver First Name: Karishma Caregiver Last Name: Yosi Caregiver Relationship to Patient dtr Caregiver Caregiver Notes: N/A [employer] List No END PATIENT REGISTRATION INFORMATION Pt [...] side Discharge Date: 05/23/22 Referral Source-PACC: (Hospital/Unit): [facility] / B1-147/B1-147 B End PACC Note * Care Coordination - Phillip Gurrola RN - 05/22/2022 4:48 PM EST Care Managment Initial Assessment Date: 05/22/2022 Patient Name: oGnzalo Deluca : 1955 Patient Information Source of Information: Patient Name/Contact Information: KARISHMA DELUCA [phone] DAUGHTER Cognition/Language: WFL - Within Functional Limits Permission given to speak with patient artists' booking representative/caregiver as indicated: Yes Confirmation of Payer with patient/family: Yes Payer Name: [facility] DUAL [facility]PLETE [place]: No Confirmation of Primary Care Physician: Confirmed PCP Name: DR. CASE Seen in last 2 years?: Yes Primary Caregiver: Self If assistance needed, confirmed caregiver ready, willing and able to care for patient at discharge: Confirmed with: Living Arrangements Current Residence: House Number of Floors 2 Number of Entry Steps: 1 Bed/Bath Levels: Both first floor Facility: Facility Name: NA Plan to Return: Yes Lives with: Support Systems: Children (DAUGHTER AND DAUGHTER'S BOYFRIEND AND 6 YEAR OLD GRANDDAUGHTER) Activities of Daily Living Ambulation: Independent Bathing/Dressing: Independent Elimination/Continence/Toileting: Independent Feeding: Independent Who Assists with Activities of Daily Living: NA Instrumental Activities of Daily Living Prescription Coverage: Yes Pharmacy Used: [facility] [place] Medication Management: Prescription pick-up Who assists with [...] expects to be discharged to: HOME WITH [facility] Discharge Planning Actions: Continue to follow Patient's [...] is electing to discharge to home with [facility] services. editorial assistant updated via [facility]. Patient states lives at home with her daughter, prem's boyfriend, and her 6 year granddaughter. States her daughter plans on taking FMLA and staying with her while she recovers. Patient does wear oxygen at 2.5 liters at home cont. Denies anticipating any additional needs upon discharge. Discharge plan home with [facility] when medically stable. Anticipate probable discharge in [...] affected body part 05/22/2022 1559 by Nicole Swift RN Outcome: [...] 1558 by Nicole Swift RN Outcome: Progressing * Care Plan - [...] of falls Outcome: Progressing documented in this [facility]03-06-2023 Hospital course Narrative* Teresa Cedillo MD - [...] SNF but patient declined and wished hoemwith [facility]. She was discharged home. SIGNIFICANT DIAGNOSTIC STUDIES: [...] Complexity: follow up within 7-14 calendar days (52112) [] Severe Complexity: follow up within 7 calendar days (46100) FOLLOW UP TESTING, PENDING RESULTS OR REFERRALS AT TRANSITIONAL CARE VISIT: [] Yes [] No PENDING STUDIES: No DISPOSITION: Home FACILITY/HOME CARE AGENCY NAME: Follow up with Betsey Gresham MD [address] [facility] [id number] Schedule an appointment as soon as possible for a visit in 3 week(s) Herminia Case MD [address] [place] [phone] Schedule an appointment as soon as possible [...] MD 05/24/2022, 10:00 AM documented in this [facility]03-06-2023 History of Present illness Narrative* Martita Ervin, BROADCASTING EQUIPMENT MECHANIC - 05/24/2022 8:39 AM EST Physical Therapy Facility/Department: [facility] Physical Therapy Daily Treatment Note NAME: Gonzalo [...] if she chooses togo home would require 24/ asisst which she said that she has. [...] Allergic rhinitis, Arthritis, Asthma, Bronchitis, Cancer (CMS/HCC) ([facility]), Cervical cancer (CMS/HCC) ([facility]), Chest pain, COPD (chronic obstructive pulmonary disease) ([facility]), DDD (degenerative disc disease), cervical, Defect, retina, with detachment, DJD (degenerative joint disease), lumbar, Emphysema lung ([facility]), Former smoker, Hematuria, Hypokalemia, Lung nodules, Osteoporosis, Palpitations, Pneumonia, Recurrent major depression ([facility]), Sciatica, Thoracic compression fracture (HCC), and Vitamin D deficiency. She has no past medical history of Blood circulation, collateral, Chronic kidney disease, Clotting disorder (CMS/HCC) (HCC), Disease of blood and blood forming organ, GERD (gastroesophageal reflux disease), Liver disease, Movement disorder, Other disorders of kidney and ureter in diseases classified elsewhere, Seizures (CMS/HCC) (HCC), or Syncope and collapse. has a past [...] but no LOB noted. Distance (ft) 1: [id number] Comments 1: O2 after 50ft x 1 [...] Inpatient Mobility Raw Score: 16 Mobility Inpatient [facility] G-Code Modifier: CK Goals Encounter Problems Encounter [...] (1 gait) Martita Ervin PTA * Teresa eCdillo MD - 05/23/2022 2:10 PM EST Images from the original note were not included. Hospitalist Progress Note 05/23/[id number]: Please message me for patient care issues. [phone]: Please message [facility] Hospitalist for any issues. Subjective: Admit Date: 05/21/2022 PCP: HERMINIA CASE MD Room#: B1-147/B1-147 B Interval History: Remains on oxygen. Tolerating diet. Pain controlled. Denies chest pain, sob, abdominal pain, nausea, vomiting, diarrhea, constipation, fevers, or chills. She is weak. Still does notwant SNF/FBT but does not feel ready to go home today. D/w pt and RN separately. Adult diet Regular @[id number]@ 24HR INTAKE/OUTPUT: No intake or output data in the 24 hours ending 05/23/22 1410 Past Medical History: Past Medical History: Diagnosis Date Abnormal stress test Allergic rhinitis Arthritis Asthma Bronchitis Cancer (CMS/HCC) ([facility]) skin Cervical cancer (CMS/HCC) ([facility]) Chest pain COPD (chronic obstructive pulmonary disease) ([facility]) USE OXYGEN 3 L AT NIGHT DDD (degenerative disc disease), cervical Defect, retina, with detachment right DJD (degenerative joint disease), lumbar Emphysema lung ([facility]) Former smoker Hematuria SCHEDULED FOR THE PROCEDURE /SURGERY ON 02/11/2017 Hypokalemia Lung nodules Osteoporosis Palpitations Pneumonia Recurrent major depression ([facility]) Sciatica Thoracic compression fracture ([facility]) Vitamin D deficiency LABS: CBC: Recent Labs 05/21/22 0526 05/22/22 0451 05/23/22 0058 WBC 12.1* 7.5 9.6 RBC 4.09 3.47* 3.27* HGB 12.5 10.8* 10.3* HCT 39.0 33.0* 31.1* MCV 95.4 95.1 95.1 RDW 14.0 14.0 13.9 PLT 339 238 248 BMP: Recent Labs 05/21/22 0526 05/22/22 0451 05/23/22 0058 NA 138 137 138 K 4.2 4.2 [...] Child Secondary Emergency Contact: YosiJace Relation: Child TERESA CEDILLO MD Division of Hospitalist Medicine [facility]: Epic chat * Andres Ventura MD [...] 05/23/2022 8:34 AM EST Physical Therapy Facility/Department: [facility] Physical Therapy Daily Treatment Note [...] Allergic rhinitis, Arthritis, Asthma, Bronchitis, Cancer (CMS/HCC) ([facility]), Cervical cancer (CMS/HCC) ([facility]), Chest pain, COPD (chronic obstructive pulmonary disease) ([facility]), DDD (degenerative disc disease), cervical, Defect, retina, with detachment, DJD (degenerative joint disease), lumbar, Emphysema lung ([facility]), Former smoker, Hematuria, Hypokalemia, Lung nodules, Osteoporosis, Palpitations, Pneumonia, Recurrent major depression ([facility]), Sciatica, Thoracic compression fracture ([facility]), and Vitamin D deficiency. She has no past medical history of Blood circulation, collateral, Chronic kidney disease, Clotting disorder (CMS/HCC) ([facility]), Disease of blood and blood forming organ, GERD (gastroesophageal reflux disease), Liver disease, Movement disorder, Other disorders of kidney and ureter in diseases classified elsewhere, Seizures (CMS/HCC) ([facility]), or Syncope and collapse. has a past [...] Inpatient Mobility Raw Score: 16 Mobility Inpatient [facility] G-Code Modifier: CK Goals Encounter Problems Encounter [...] Patient assigned a level 1. * Griselda Mcfarlane PTA - 05/22/2022 2:44 PM EST Physical Therapy Facility/Department: [facility] Physical Therapy Daily Treatment Note NAME: Gonzalo [...] Allergic rhinitis, Arthritis, Asthma, Bronchitis, Cancer (CMS/HCC) ([facility]), Cervical cancer (CMS/HCC) ([facility]), Chest pain, COPD (chronic obstructive pulmonary disease) ([facility]), DDD (degenerative disc disease), cervical, Defect, retina, with detachment, DJD (degenerative joint disease), lumbar, Emphysema lung ([facility]), Former smoker, Hematuria, Hypokalemia, Lung nodules, Osteoporosis, Palpitations, Pneumonia, Recurrent major depression ([facility]), Sciatica, Thoracic compression fracture ([facility]), and Vitamin D deficiency. She has no past medical history of Blood circulation, collateral, Chronic kidney disease, Clotting disorder (CMS/HCC) ([facility]), Disease of blood and blood forming organ, GERD (gastroesophageal reflux disease), Liver disease, Movement disorder, Other disorders of kidney and ureter in diseases classified elsewhere, Seizures ([facility]) ([facility]), or Syncope and collapse. has a past [...] Inpatient Mobility Raw Score: 14 Mobility Inpatient [facility] G-Code Modifier: CL Goals Encounter Problems Encounter [...] were not included. Hospitalist Progress Note 05/22/2022 [phone]: Please message me for patient care issues. [phone]: Please message [facility] Hospitalist for any issues. Subjective: Admit Date: 05/21/2022 PCP: HERMINIA CASE MD Room#: B1-147/B1-147 B Interval History: Pain controlled. Tolerating diet. Weak. Denies chest pain, sob, abdominal pain, nausea, vomiting, diarrhea, constipation, fevers, or chills. D/w pt Adult diet Regular @[id number]@ 24HR INTAKE/OUTPUT: No intake or output data [...] Vitamin D deficiency LABS: CBC: Recent Labs 05/21/2252505/22/22 0451 WBC 12.1* 7.5 RBC 4.09 3.47* HGB 12.5 10.8* HCT 39.0 33.0* MCV 95.4 95.1 RDW 14.0 14.0 PLT 339 238 BMP: Recent Labs 05/21/2252505/22/22 0451 NA 138 137 K 4.2 4.2 [...] TERESA CEDILLO MD Division of Hospitalist Medicine [facility]: Epic chat * Andres Ventura MD [...] Therapy recommends FBT. Discharge planning. * Greer Delarosa PT - 05/21/2022 3:31 PM EST Physical Therapy Facility/Department: [facility] Physical Therapy Initial Evaluation NAME: [...] Allergic rhinitis, Arthritis, Asthma, Bronchitis, Cancer (CMS/HCC) ([facility]), Cervical cancer (CMS/HCC) ([facility]), Chest pain, COPD (chronic obstructive pulmonary disease) ([facility]), DDD (degenerative disc disease), cervical, Defect, retina, with detachment, DJD (degenerative joint disease), lumbar, Emphysema lung ([facility]), Former smoker, Hematuria, Hypokalemia, Lung nodules, Osteoporosis, Palpitations, Pneumonia, Recurrent major depression ([facility]), Sciatica, Thoracic compression fracture ([facility]), and Vitamin D deficiency. She has no past medical history of Blood circulation, collateral, Chronic kidney disease, Clotting disorder (CMS/HCC) ([facility]), Disease of blood and blood forming organ, GERD (gastroesophageal reflux disease), Liver disease, Movement disorder, Other disorders of kidney and ureter in diseases classified elsewhere, Seizures (CMS/HCC) ([facility]), or Syncope and collapse. has a past [...] Independent (no device) Transfer Assistance: Independent Active Architectural Engineering Teacher: No Additional Comments: daughter works Objective Observation/Palpation [...] Inpatient Mobility Raw Score: 12 Mobility Inpatient [facility] G-Code Modifier: CL Goals Encounter Problems Encounter [...] 05/21/2022 3:27 PM EST Occupational Therapy Facility/Department: [facility] Occupational Therapy Initial Evaluation NAME: [...] Allergic rhinitis, Arthritis, Asthma, Bronchitis, Cancer (CMS/HCC) ([facility]), Cervical cancer (CMS/HCC) ([facility]), Chest pain, COPD (chronic obstructive pulmonary disease) ([facility]), DDD (degenerative disc disease), cervical, Defect, retina, with detachment, DJD (degenerative joint disease), lumbar, Emphysema lung ([facility]), Former smoker, Hematuria, Hypokalemia, Lung nodules, Osteoporosis, Palpitations, Pneumonia, Recurrent major depression ([facility]), Sciatica, Thoracic compression fracture ([facility]), and Vitamin D deficiency. She has no past medical history of Blood circulation, collateral, Chronic kidney disease, Clotting disorder (CMS/HCC) ([facility]), Disease of blood and blood forming organ, GERD (gastroesophageal reflux disease), Liver disease, Movement disorder, Other disorders of kidney and ureter in diseases classified elsewhere, Seizures (CMS/HCC) ([facility]), or Syncope and collapse. has a past [...] Independent (no device) Transfer Assistance: Independent Active Architectural Engineering Teacher: No Additional Comments: daughter works Objective Gross [...] Daily Activity Raw Score: 17 ADL Inpatient [facility] G-Code Modifier: CK Goals Encounter Problems Encounter [...] is seen and examined, admitted by the criminology professor early a.m., see H&P for details. Patient [...] 05/21/2022 7:43 AM EST Occupational Therapy Facility/Department: [facility] Occupational Therapy Initial Evaluation NAME: [...] 05/21/2022 7:40 AM EST Physical Therapy Facility/Department: [facility] Physical Therapy Initial Evaluation NAME: Gonzalo Deluca : 1955 Date of Service: 05/21/2022 PT/OT evaluation orders received and chart review completed. Pt found to have R proximal humerus fracture and possible R elbow occult right osseous fracture. Ortho consult pending. Will hold for updated POC and weight bearing status prior to initiating evaluation. Marian Mendosa PT documented in this [facility]03-05-2023 Plan of care note* Care Plan - [...] free of falls [facility]: [facility]ing [id number] of care note* Care Plan - [...] 1802 by Nicole Swift RN Outcome: Progressing [id number] Note* Care Coordination - Unknown Case Management - 05/23/2022 2:13 PM EST Patient Choice Patient Name: GONZALO DELUCA Date of : 1955 All Providers Sent Referral Name: [employer] [facility] Phone: [phone] Address: [address] [place] [phone] [employer] [id number] Note* Care Coordination - Unknown Case Management - 05/23/2022 2:13 PM EST Patient Choice Patient Name: GONZALO DELUCA Date of : 1955 All Providers Sent Referral Name: [facility] Phone: [phone] Address: [address] [place] [address] [employer] [id number] Note* Home Care - Mahsa Castro RN - 05/23/2022 2:03 PM EST Start PACC Note Home Health Referral Educated patient on Home Care and services available. Patient offered choice of available HHC and agreeable to PT/OT services with [facility] - Home Care. Care [...] is noted as yes - consider a AIRCRAFT ENGINEER evaluation once the patient returns home. START PATIENT REGISTRATION INFORMATION Order Information Order Signing Physician: Teresa Cedillo MD Service Ordered RN ?: No Service Ordered PT ?: Yes Service Ordered OT ?: Yes Service Ordered ST ?: No Service Ordered AIRCRAFT ENGINEER?:No Service Ordered MIXER ATTENDANT?: No Following Physician: HERMINIA CASE MD Following Physician Overseeing Physician: HERMINIA CASE MD (Required for Residents only) Agreeable to Follow? Office closed Date/Time of Call 05/23/22 2:04 PM Care Coordination SOC Call from [facility] Required?: No Same Day SOC?: No Primary Care Physician: HERMINIA CASE MD Primary Care Physician Primary Care Physician Address: [address] [place] [phone] Visit Instructions: N/A Service Discharge Location Type: Home with Home Health Care Service Facility Name: N/A Service Floor Facility: N/A Service Room No: N/A Demographics Patient Last Name: Yosi Patient First Name: Gonzalo Language/Communication Barrier: n/a Service Address: [address] [place], [place] [address] Service City: [facility] ST: [place] Service ZIP: [address] Service (home) Other phone numbers: Telephone Information: Emergency Contact: Extended Emergency Contact Information Primary Emergency Contact: Karishma Deluca Relation: Child Secondary Emergency Contact: Jace Deluca Relation: Child Admission Information Admit Date: 05/21/2022 Patient status at discharge: Observation Caregiver Information Caregiver First Name: Karishma Caregiver Last Name: Yosi Caregiver Relationship to Patient dtr Caregiver Caregiver Notes: N/A [employer] List No END PATIENT REGISTRATION INFORMATION Pt [...] side Discharge Date: 05/23/22 Referral Source-PACC: (Hospital/Unit): [facility] / B1-147/B1-147 B End PACC Note [id number]* Home Care - Mahsa Castro RN - 05/23/2022 2:03 PM EST Start PACC Note Home Health Referral Educated patient on Home Care and services available. Patient offered choice of available HHC and agreeable to PT/OT services with [facility] - [facility] Care. Care [...] is noted as yes - consider a AIRCRAFT ENGINEER evaluation once the patient returns home. START PATIENT REGISTRATION INFORMATION Order Information Order Signing Physician: Teresa Cedillo MD Service Ordered RN ?: No Service Ordered PT ?: Yes Service Ordered OT ?: Yes Service Ordered ST ?: No Service Ordered AIRCRAFT ENGINEER?:No Service Ordered MIXER ATTENDANT?: No Following Physician: HERMINIA CASE MD Following Physician Overseeing Physician: HERMINIA CASE MD (Required for Residents only) Agreeable to Follow? Office closed Date/Time of Call 05/23/22 2:04 PM Care Coordination SOC Call from [facility] Required?: No Same Day SOC?: No Primary Care Physician: HERMINIA CASE MD Primary Care Physician Primary Care Physician Address: [address] [place] [address] Visit Instructions: N/A Service Discharge Location Type: Home with Home Health Care Service Facility Name: N/A Service Floor Facility: N/A Service Room No: N/A Demographics Patient Last Name: Yosi Patient First Name: Gonzalo Language/Communication Barrier: n/a Service Address: [address] [place] [address] Service City: [facility] ST: [place] Service ZIP: [address] Service (home) Other phone numbers: Telephone Information: Emergency Contact: Extended Emergency Contact Information Primary Emergency Contact: Karishma Deluca Relation: Child Secondary Emergency Contact: Jace Deluca Bluejacket Relation: Child Admission Information Admit Date: 05/21/2022 Patient status at discharge: Observation Caregiver Information Caregiver First Name: Karishma Caregiver Last Name: Yosi Caregiver Relationship to Patient dtr Caregiver Caregiver Notes: N/A [employer] List No END PATIENT REGISTRATION INFORMATION Pt [...] side Discharge Date: 05/23/22 Referral Source-PACC: (Hospital/Unit): [facility] / B1-147/B1-147 B End PACC Note [id number] Discharge instructions* Discharge Instr - Activity* Teresa Cedillo MD - 05/23/2022 12:34 PM EST Non weight bearing right upper extremity Continue shoulder immobilizer * Discharge Instr - Diet* Teresa Cedillo MD - 05/23/2022 12:35 PM EST Regular diet * Discharge Instr - Other Orders* Mahsa Castro RN - 05/23/2022 2:03 PM EST Discharging to Facility/ Agency Name: [facility] Address: [address] [place] [address] * Discharge Instr - SHAMA* Deanna Romero [...] 2.6 oz) Mental Status: {SHAMA Patient Mental Status:87285} IV Access: {SHAMA IV Access:13082} Nursing Mobility/ADLs: Walking {YANETH ADL:::"Independent"} Transfer {YANETH ADL:::"Independent"} Bathing {YANETH ADL:::"Independent"} Dressing {YANETH ADL:::"Independent"} Toileting {AYNETH ADL:::"Independent"} Feeding {YANETH ADL:::"Independent"} Engine Specialist {YANETH ADL:::"Independent"} Med Delivery {yes/no:90161} Wound Care Documentation and Therapy: Wound/Incision 05/21/22 Traumatic Eye Right (Active) Site Assessment Swelling 05/24/22 0755 Odor None 05/23/22 0941 Drainage Amount None 05/24/22 0755 Primary Dressing Open to air 05/24/22 0755 Number of days: 2 Wound/Incision 05/21/22 Traumatic Wrist Left;Posterior (Active) Site Assessment Wells 05/24/22 0755 Odor None 05/24/22 0755 Drainage Amount None 05/24/22 0755 Primary Dressing Steri-strips 05/24/22 0755 Dressing Status Dry;Intact 05/24/22 0755 Number of days: 2 Elimination: Continence: Bowel: {yes/no:57654} Bladder: {yes/no:11496} Urinary Catheter: {SHAMA Urinary Catheter:71681} Colostomy/Ileostomy/Ileal Conduit: {YES / NO:} Date of Last BM: No intake or output data in the 24 hours ending 05/24/22 1049 No intake/output data recorded. Safety Concerns: {SHAMA Safety Concerns:03999} Impairments/Disabilities: {SHAMA Impairments/Disabilities:86438} Nutrition Therapy: Current Nutrition Therapy: {SHAMA Diet List:53697} Routes of Feeding: {routes of feedin} Liquids: {liquid consistency:47083} Daily Fluid Restriction: {daily fluid restriction:32740} Last Modified Barium Swallow with Video (Video Swallowing Test): {done not done:10022} Treatments at the Time of Hospital Discharge: Respiratory Treatments: Oxygen Therapy: {Therapy; copd oxygen:20608} Ventilator: {SHAMA Ventilator:94512} Rehab Therapies: {GEN THERAPY DISCIPLINE SCAL:8704601} Weight Bearing Status/Restrictions: {POD WEIGHT BEARIN} Other Medical Equipment (for information only, NOT a DME order): {Assistive Devices DME:98942} Other Treatments: Patient's personal belongings (please select all that are sent with patient): {SHAMA Patient Belongings:49543} RN SIGNATURE: {E-signature:70911} CASE MANAGEMENT/SOCIAL WORK SECTION Inpatient Status Date: Readmission Risk Assessment Score: Predictive Model Details Model IP RISK OF UNPLANNED READMISSION [[id number]] is not released. No score information can be retrieved Discharging to Facility/ Agency Name: Address: Phone: Fax: Dialysis Facility (if applicable) Name: Address: Dialysis Schedule: Phone: Fax: Senior Media Director/Rug [employer]ovator signature: {E-signature:36405} PHYSICIAN SECTION Prognosis: {Rehab Prognosis:11948} Condition at Discharge: {Patient Condition:68487} Rehab Potential (if transferring to Rehab): {Rehab Prognosis:86981} Recommended Labs or Other Treatments After Discharge: Physician Certification: I certify the above information and transfer of Gonzalo Deluca is necessary for the continuing treatment of the diagnosis listed and that she requires {SHAMA Level of Care:52719} for {greater less than:17924} 30 days. Update Admission H&P: {SHAMA Changes in H&P:83896} PHYSICIAN SIGNATURE: {E-signature:81073} Discharging to Facility/ Agency Name: [facility] Address: [address] [place] [address] documented in this [facility]03-04-2023 Note* Care Coordination - Phillip Gurrola RN - 05/22/2022 4:48 PM EST Care Managment Initial Assessment Date: 05/22/2022 Patient Name: Gonzalo Deluca : 1955 Patient Information Source of Information: Patient Name/Contact Information: KARISHMA DELUCA [phone] DAUGHTER Cognition/Language: WFL - Within Functional Limits Permission given to speak with patient artists' booking representative/caregiver as indicated: Yes Confirmation of Payer with patient/family: Yes Payer Name: [facility] DUAL COMPLETE [place]: No Confirmation of Primary Care Physician: Confirmed [...] Daily Living Prescription Coverage: Yes Pharmacy Used: [facility] [place] Medication Management: Prescription pick-up Who assists with [...] expects to be discharged to: HOME WITH [facility] Discharge Planning Actions: Continue to follow Patient's [...] is electing to discharge to home with [facility]. editorial assistant updated via [facility]. Patient states lives at home with her daughter, prem's boyfriend, and her 6 year granddaughter. States her daughter plans on taking FMLA and staying with her while she recovers. Patient does wear oxygen at 2.5 liters at home cont. Denies anticipating any additional needs upon discharge. Discharge plan home with [facility] when medically stable. Anticipate probable discharge in the am.. Phillip Gurrola RN [id number] Note* Care Coordination - Phillip Gurrola RN - 05/22/2022 4:48 PM EST Care Managment Initial Assessment Date: 05/22/2022 Patient Name: Gonzalo Deluca : 1955 Patient Information Source of Information: Patient Name/Contact Information: KARISHMA DELUCA [phone] DAUGHTER Cognition/Language: WFL - Within Functional Limits Permission given to speak with patient artists' booking representative/caregiver as indicated: Yes Confirmation of Payer with patient/family: Yes Payer Name: [facility] DUAL COMPLETE [place]: No Confirmation of Primary Care Physician: Confirmed [...] Prescription Coverage: Yes Pharmacy Used: [facility] [place] Medication Management: Prescription pick-up Who assists with [...] expects to be discharged to: HOME WITH [facility] Discharge Planning Actions: Continue to follow Patient's Choice Rights and [employer] and Collaborative Relationships Disclosed as Indicated for Post-Acute Care: NA Interdisciplinary Team Engagement: Home Health Care, PT/OT Social Work Referral for: Additional Information: Admitted from home following a fall. Sustained right shoulder and elbow fracture. Admitted to [facility] ortho consulted, has sling in place to right arm. Pt/ot and pain control. Discharge preparation checklist reviewed with patient. Has prescription coverage and able to afford medications. Reviewed therapy evals and recommendations of snf with patient and she is electing to discharge to home with [facility]. editorial assistant updated via [facility]. Patient states lives at home with her daughter, prem's boyfriend, and her 6 year granddaughter. States her daughter plans on taking FMLA and staying with her while she recovers. Patient does wear oxygen at 2.5 liters at home cont. Denies anticipating any additional needs upon discharge. Discharge plan home with [facility] when medically stable. Anticipate probable discharge in the am.. Phillip Gurrola RN [id number] Plan of care note* Care Plan - Nicole Swift RN - 05/22/2022 3:59 PM EST Problem: Musculoskeletal - Adult Goal: Return mobility to safest level of function 05/22/2022 155 by Nicole Swift RN Outcome: Progressing 05/22/2022 1558 by Nicole Swift RN Outcome: Progressing Goal: Maintain proper alignment of affected body part 05/22/2022 155 by Nicole Swift RN Outcome: Progressing 05/22/2022 [...] 1558 by Nicole Swift RN Outcome: Progressing [facility]03-03-2023 Plan of care note* Care Plan - [...] will remain free of falls Outcome: Progressing [facility]03-03-2023 Consult note* Betsey Gresham MD - 05/21/2022 [...] test Allergic rhinitis Arthritis Asthma Bronchitis Cancer ([facility]) skin Cervical cancer ([facility]) Chest pain COPD (chronic obstructive pulmonary disease) (CMS/[facility]) USE OXYGEN 3 L AT NIGHT DDD (degenerative disc disease), cervical Defect, retina, with detachment right DJD (degenerative joint disease), lumbar Emphysema lung ([facility]) Former smoker Hematuria SCHEDULED FOR THE PROCEDURE /SURGERY ON 02/11/2017 Hypokalemia Lung nodules Osteoporosis Palpitations Pneumonia Recurrent major depression (CMS/HCC) Sciatica Thoracic compression fracture ([facility]) Vitamin D deficiency Past Surgical History Past Surgical History: Procedure Laterality Date CYSTOSCOPY 01/12/2017 OFFICE PROCEDURE CYSTOSCOPY 02/11/2017 C&P bladder biopsy EYE SURGERY detached retina 1994 HYSTERECTOMY 11/06/2019 ABDOMINAL RADICAL HYSTERECTOMY WITH BSO AND PELVIC LYMPH; DR. ZIYAD MENENDEZ [facility] OTHER SURGICAL HISTORY Left 12/19/2019 Med Port [...] the weekend if there is any issues. [facility] Phone: [phone]) 372-358903-03-2023 Consult note* Betsey Gresham MD - [facility]22 [facility] to Orthopaedic Surgery [...] major depression (CMS/HCC) Sciatica Thoracic compression fracture (CMS/[facility]) Vitamin D deficiency Past Surgical History Past [...] there is any issues. documented in this [facility]03-03-2023 Emergency department Note* Erna Smalls RN - 05/21/2022 8:00 AM EST Pt repositioned in bed Erna Smalls RN 05/21/22 0836 [facility] [id number] Emergency department Note* Erna Smalls RN - 05/21/2022 8:00 AM EST Pt repositioned in bed Erna Smalls RN 05/21/22 0836 * Martha Flores MD - 05/21/2022 2:26 [...] (has no administration in time range) HYDROcodone-acetaminophen ([place]) 5-325 MG per tablet 1 tablet (has [...] in time range) lidocaine-EPINEPHrine (Xylocaine W/EPI) 1 %-1:327353 injection 10 mL (10 mL Infiltration Given 05/21/22339) morphine injection 2 mg (2 mg IntraVENous Given 05/21/22339) ED Course as of 05/21/22 05TueMay 21, 2022 05 Patient on my review with no intracranial [...] Martha Flores MD Diagnoses as of 05/21/22 05 Fall, initial encounter Facial laceration, initial encounter [...] deficits on exam. Patient is positive per [place] C-spine criteria. Given these findings work-up in [...] poor cosmetic result and poor wound healing Piffard protocol: Patient identity confirmed: Verbally with patient [...] wound healing and need for additional repair Piffard protocol: Patient identity confirmed: Verbally with patient [...] Gonzalez RN 05/21/22 0227 documented in this [facility]03-03-2023 History and physical note* Dianne Rekha Dale - 05/21/2022 5:38 AM EST Images [...] DJD (degenerative joint disease), lumbar Emphysema lung ([facility]/HCC) Former smoker Hematuria SCHEDULED FOR THE PROCEDURE /SURGERY ON 02/11/2017 Hypokalemia Lung nodules Osteoporosis Palpitations Pneumonia Recurrent major depression (CMS/HCC) Sciatica Thoracic compression fracture ([facility]/HCC) Vitamin D deficiency Past Surgical History: Past [...] a 3.9 % 30 day risk of UT or cardiac arrest class 1 risk and [...] [place] Division of Hospitalist Medicine Inpatient Medical Services[place] [employer] Work Phone: 1(511) 881-444903-03-2023 History and physical note* Dianne Dale - [...] major depression (CMS/HCC) Sciatica Thoracic compression fracture ([facility]/HCC) Vitamin D deficiency Past Surgical History: Past Surgical History: Procedure Laterality Date CYSTOSCOPY 01/12/2017 OFFICE PROCEDURE CYSTOSCOPY 02/11/2017 C&P bladder biopsy EYE SURGERY detached retina 1994 HYSTERECTOMY 11/06/2019 ABDOMINAL RADICAL HYSTERECTOMY WITH BSO AND PELVIC LYMPH; DR. ZIYAD MENENDEZ [facility] OTHER SURGICAL HISTORY Left 12/19/2019 Med Port [...] a 3.9 % 30 day risk of UT or cardiac arrest class 1 risk and [...] Extended Emergency Contact Information Primary Emergency Contact: MamadouKarishma Relation: Child Secondary Emergency Contact: YosiJace Relation: Child Dianne [place] Division of Hospitalist Medicine Inpatient Medical Services[place] documented in this [facility]03-03-2023 Emergency department Note* Floridalma Gonzalez RN - 05/21/2022 2:26 AM EST Bed: 19 Expected date: 05/21/22 Expected time: Means of arrival: Comments: Jean Gonzalez RN 05/21/22 0227 [facility]03-03-2023 Emergency department Triage note* Trell Muller RN - 05/21/2022 2:26 AM EST From home via EMS adrian c/o right arm pain and right orbit laceration s/p mechanical fall d/t poor lighting. Denies LOC, no thinners [facility]03-03-2023 Physician Emergency department Note* Martha Flores MD [...] test Allergic rhinitis Arthritis Asthma Bronchitis Cancer ([facility]/HCC) skin Cervical cancer ([facility]) Chest pain COPD (chronic obstructive pulmonary disease) ([facility]) USE OXYGEN 3 L AT NIGHT DDD (degenerative disc disease), cervical Defect, retina, with detachment right DJD (degenerative joint disease), lumbar Emphysema lung ([facility]) Former smoker Hematuria SCHEDULED FOR THE PROCEDURE /SURGERY ON 02/11/2017 Hypokalemia Lung nodules Osteoporosis Palpitations Pneumonia Recurrent major depression ([facility]) Sciatica Thoracic compression fracture ([facility]) Vitamin D deficiency SURGICAL HISTORY Past Surgical History: Procedure Laterality Date CYSTOSCOPY 01/12/2017 OFFICE PROCEDURE CYSTOSCOPY 02/11/2017 C&P bladder biopsy EYE SURGERY detached retina 1994 HYSTERECTOMY 11/06/2019 ABDOMINAL RADICAL HYSTERECTOMY WITH BSO AND PELVIC LYMPH; DR. ZIYAD MENENDEZ [facility] OTHER SURGICAL HISTORY Left 12/19/2019 Med Port [...] (has no administration in time range) HYDROcodone-acetaminophen ([place]) 5-325 MG per tablet 1 tablet (has [...] in time range) lidocaine-EPINEPHrine (Xylocaine W/EPI) 1 %-1:595037 injection 10 mL (10 mL Infiltration Given [...] deficits on exam. Patient is positive per [place] C-spine criteria. Given these findings work-up in [...] poor cosmetic result and poor wound healing Piffard protocol: Patient identity confirmed: Verbally with patient [...] wound healing and need for additional repair Piffard protocol: Patient identity confirmed: Verbally with patient [...] Martha Flores MD 05/21/22 0556 [facility] [id number] Miscellaneous Notes* Telephone Encounter - Bernadette Rubin MA - 05/06/2022 8:02 AM EST Last appointment 03/05/22 Next appointment: 09/03/22 [facility] Refill(s) requested: Requested Prescriptions Pending Prescriptions Disp Refills oxyCODONE-acetaminophen (PERCOCET) 5-325 mg tablet 120 tablet 0 Sig: Take 1 tablet by mouth every 6 hours as needed for pain for up to 30 days. Order(s) pended. Please advise. Bernadette Rubin MA, DIRECTOR NURSING SERVICE documented in this encounterUniversity Hospitals Lake West Medical Center02-01-2023 History of Present illness Narrative* DB Durham CNP - 04/21/2022 2:00 PM EST @LOGOIMAGE@ Chief [...] Med Port POWER Regular Size TUBAL LIGATION 1993 @MEDCMED@ Allergies as of 04/21/2022 (No Known [...] recognition. I apologize for minor errors in labor expediter which may be present. documented in this [facility]01-18-2023 Miscellaneous Notes* Telephone Encounter - Donovan Brower MD - 04/07/2022 4:36 PM EST PDMP website checked and validated. All prescriptions have been APPROPRIATELY filled. No suspiciousactivity was identified. 04/07/2022 by Donovan Brower MD * Telephone Encounter - Bernadette Rubin MA - 04/07/2022 2:59 PM EST Last appointment: 03/05/22 Next appointment: 09/03/22 Pharmacy verified in Epic. Refill(s) requested: Requested Prescriptions Pending Prescriptions Disp Refills oxyCODONE-acetaminophen (PERCOCET) 5-325 mg tablet 120 tablet 0 Sig: Take 1 tablet by mouth every 6 hours as needed for pain for up to 30 days. Order(s) pended. Please advise. Bernadette Rubin MA, DIRECTOR NURSING SERVICE documented in this encounterUniversity Hospitals Lake West Medical Center01-17-2023 History of Present illness Narrative* Jo Chen MA - 04/06/2022 9:57 AM EST POPULATION HEALTH NAVIGATION OUTREACH Action/FYI [facility] [employer] message sent ANNUAL MEDICARE WELLNESS MAMMOGRAM Never done COLORECTAL CANCER SCREENING Never done INFLUENZA(1) due on 2021 ADVANCE DIRECTIVE DISCUSSION Never done Pt identified by name and : NO Outreach Outcome/Action Unable to reach patient: Left message [employer] message sent Did you use a PCP flex slot to schedule this appointment? N/A Reason for Outreach Care Gap or Scheduling/Wellness visits Payer: Payor: [facility] MED[facility] / Plan: [facility] DUAL COMPLETE HMO SNP / Product [...] 06, 2022 9:57 AM documented in this encounterUniversity Hospitals Lake West Medical Center12-19-2022 Miscellaneous Notes* Telephone Encounter - Whit Shay LPN - 03/08/2022 8:02 PM EST Last appointment: 03/05/22 Next appointment: 09/03/22 Pharmacy verified in [employer]. Refill(s) requested: Requested Prescriptions Pending Prescriptions Disp Refills cyclobenzaprine (FLEXERIL) 5 mg tablet 30 tablet 0 Sig: Take 1 tablet by mouth three times daily as needed. Order(s) pended. Please advise. Whit Shay LPN, CMA documented in this encounterUniversity Hospitals Lake West Medical Center12-16-2022 Miscellaneous Notes* Telephone Encounter - Sandy Leggett - 03/05/2022 3:18 PM EST Spoke with patient. Patient has been scheduled with PCP on 09/03/2022. Thank you. Sandy Leggett * Telephone Encounter - Melva Sandoval PA-C - 03/05/2022 3:13 PM EST Please schedule pt for 6 month follow up with Dr. Case. Thanks, Melva Sandoval PA-C documented in this encounterUniversity Hospitals Lake West Medical Center12-16-2022 History of Present illness Narrative* Melva Sandoval PA-C - 03/05/2022 3:07 PM EST VIRTUAL VISIT-pt consented Gonzalo Deluca is a 66 year old female here today for "follow up." COPD: Has ultrasound specialist in [place], but hasn't seen him in a year. [...] J20.9 (primary diagnosis) Needs to schedule with ultrasound specialist. 2. DDD (degenerative disc disease), lumbar - ICD9: 722.52, ICD10: M51.36 Stable, medication stable. 3. Major depression, recurrent, chronic (HCC) - ICD9: 296.30, ICD10: F33.9 Stable. Follow up [address] Case or sooner prn. Offered nurse visit for vaccines, pt declined. Return in the interim prn. Pt in agreement with the plan and verbalized understanding. Melva Sandoval PA-C documented in this encounterUniversity Hospitals Lake West Medical Center12-16-2022 Miscellaneous Notes* Telephone Encounter - Shelley Mendoza - 03/05/2022 7:36 AM EST Pt scheduled herself for a follow up today 03/05/22 at 3pm with Lynette Sandoval after message was left for pt to schedule with pulmonary. * Telephone Encounter - Whit Shay LPN - 03/04/2022 8:43 AM EST [facility] needs to schedule with pulmonology order was placed in Julyto schedule. Whit Shay LPN * Telephone Encounter - Melva Sandoval PA-C - 03/03/2022 6:07 PM EST Has pt seen pulmonology? She was referred in July. Needs to get this set up if she hasn't. Orders printed, please process. Melva Sandoval PA-C * Telephone Encounter - Kita Pedroza - 03/03/2022 11:03 AM EST Gonzalo Yosi has Christina with [employer] calling Herminia Case MD today to request an order for oxygen and portable oxygen concentrator, testing and chart notes to be sent to : Attn: Christina phone number for Christina [phone] NOTE: Christina will send pre filled forms if needed please call her to advise Patient has been identified by name and birthdate. Duration of symptoms: N/A [facility] Electronically signed by Kita Christiansen [facility] at 03/03/2022 11:08 AM EST documented in this encounterUniversity Hospitals Lake West Medical Center11-23-2022 Miscellaneous Notes* Telephone Encounter - Evangelina Baltazar MA - 02/10/2022 8:27 AM EST Last appointment: 11-20-21 Next appointment: 03-01-22 [facility] Refill(s) requested: Requested Prescriptions Pending Prescriptions Disp Refills oxyCODONE-acetaminophen (PERCOCET) 5-325 mg tablet 120 tablet 0 Sig: Take 1 tablet by mouth every 6 hours as needed for pain for up to 30 days. Order(s) pended. Please advise. Evangelina Baltazar MA, [facility] documented in this encounterUniversity Hospitals Lake West Medical Center11-21-2022 Miscellaneous Notes* Telephone Encounter - Whit Shay LPN - 02/08/2022 8:13 PM EST Medication pended. Last visit: 11/20/21 Next visit: 03/01/22 documented in this encounterUniversity Hospitals Lake West Medical Center11-16-2022 Miscellaneous Notes* Telephone Encounter - Roopa Garza RN - 02/03/2022 1:14 PM EST Called patient. She said she feels about the same as yesterday. Offered an appointment with an available provider tomorrow morning. She said she will utilize [facility] today instead. * Telephone Encounter - [...] 10 days Protocols used: Sinus Pain or [id number] * Telephone Encounter - Jessica Whitley Pss - 02/01/2022 4:19 PM EST Gonzalo is calling back. Please contact her at [phone]. Call anytime. * Telephone Encounter - Phillip Robles RN - 02/01/2022 12:10 PM EST I was wondering if Dr Lee could send an antibiotic and steroid in for me. I'm having sinus pain and coughing quite a bit. Any questions please contact me at [phone]. My pharmacy in [facility] in [place]. Thank you! Called patient regarding message below, no answer. Left message to call office back. [employer] message sent as well. Phillip Robles RN Reason for Disposition Message left on unidentified voice mail. Phone number verified. Protocols used: No Contact or Duplicate Contact [id number] documented in this encounterUniversity Hospitals Lake West Medical Center11-11-2022 History of Present illness Narrative* Macarena Higgins APRN.CNP - 01/29/2022 11:12 PM EST This is an Express Care eVisit note for Gonzalo Deluca eVisit/Questionnaire reviewed The chief complaint for the visit - Patient presents with: Sinusitis Recommendations/Treatment plan - referral <5 mins to complete Macarena Higgins APRN.TONG SETTER documented in this encounterUniversity Hospitals Lake West Medical Center10-27-2022 Miscellaneous Notes* Telephone Encounter - Christina Patel [...] Patel Ma documented in this [facility]09-08-2022 Miscellaneous Notes* Telephone Encounter - Evangelina Baltazar MA - 11/26/2021 9:01 AM EDT Last appointment: 11-20-21 Next appointment: 03-01-22 [facility] Refill(s) requested: Requested Prescriptions Pending Prescriptions Disp Refills atorvastatin (LIPITOR) 40 mg tablet [Pharmacy Med Name: ATORVASTATIN 40 MG TABLET] 90 tablet 1 Sig: TAKE 1 TABLET BY MOUTH EVERY DAY AT NIGHT Order(s) pended. Please advise. Evangelina Baltazar MA, DIRECTOR NURSING SERVICE documented in this [facility]08-10-2022 Miscellaneous Notes* Telephone Encounter - Danyelle Contreras - 10/28/2021 10:16 AM EDT Last appointment: 08/06/21 Next appointment: 11/12/21 [facility]. Refill(s) requested: Requested Prescriptions Pending Prescriptions Disp Refills QUEtiapine (SEROQUEL) 100 mg tablet 90 tablet 1 Sig: Take 1 tablet by mouth at bedtime as needed. Order(s) pended. Please advise. Danyelle Contreras LPN documented in this [facility]08-01-2022 Miscellaneous Notes* Telephone Encounter - Melva Sandoval PA-C - 10/19/2021 1:06 PM EDT PDMP website checked and validated. All prescriptions have been APPROPRIATELY filled. No suspiciousactivity was identified. 10/19/2021 by Melva Sandoval PA-C * Telephone Encounter - Estee Amor LPN - 10/19/2021 12:47 PM EDT Pharmacy verified in Epic Patient [...] advise. Estee Amor LPN documented in this encounterUniversity Hospitals Lake West Medical Center07-28-2022 Miscellaneous Notes* Telephone Encounter - Whit Shay LPN - 10/15/2021 12:47 PM EDT Request completed and faxed. * Telephone Encounter - Herminia Case MD - 10/15/2021 12:45 PM EDT Done. * Telephone Encounter - Whit Shay LPN - 10/13/2021 1:11 PM EDT Placed on Dr. Case's desk for review. They are asking for a oxygen determination test. None on file. Please advise. Whit Shay LPN documented in this encounterUniversity Hospitals Lake West Medical Center07-27-2022 History of Present illness Narrative* Bret Contreras RN - 10/14/2021 1:00 PM EDT Pt here for port access for CT scan. Left Chest port accessed. Blood drawn from port. 1415: Ordered treatment completed. Patient discharged without any issues. Patient has a copy of next infusion appointment and verbalizes understanding. All questions answered. documented in this encounterSUMMA Work Phone: 1(610) 612-320606-08-2022 Miscellaneous Notes* Telephone Encounter - Melva Sandoval PA-C - 08/26/2021 3:47 PM EDT PDMP website checked and validated. All prescriptions have been APPROPRIATELY filled. No suspiciousactivity was identified. 08/26/2021 by Melva Sandoval PA-C * Telephone Encounter - Estee Amor LPN - 08/26/2021 2:15 PM EDT [facility] Patient has been identified by [...] advise. Estee Amor LPN documented in this encounterUniversity Hospitals Lake West Medical Center05-20-2022 Miscellaneous Notes* Telephone Encounter - Whit Shay LPN - 08/07/2021 3:24 PM EDT Mailed labs to patient and faxed office notes to [facility]. Whit Shay LPN * Telephone Encounter - Lala Jay - 08/07/2021 12:56 PM EDT Please mail lab orders to her home. Yes [facility] in [place] is where they need sent. Lala Jay * Telephone Encounter - Whit Shay LPN - 08/07/2021 11:24 AM EDT LM for patient to call office. 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 Need to know if it is [facility] her office notes need sent to. Whit Shay LPN documented in this encounterUniversity Hospitals Lake West Medical Center05-19-2022 Nurse Note* Lala Menard Pss - 08/06/2021 5:26 PM EDT Repeated Vitals SpO2 95 % on 3L nasal cannula , Pulse 90 SpO2 92% on room air for 2 min sitting , Pulse 92 SpO2 84% on room air ambulating 25 steps, Pulse 96 documented in this encounterUniversity Hospitals [facility]05-19-2022 History of Present illness Narrative* Herminia Case MD - 08/06/2021 4:51 PM EDT Patient presents with: Follow Up HPI: Gonzalo Deluca is a 65 year old female who presents to the office today for follow up. Hx of cervical cancer, s/p surgery in 10/2019 Skin Former onc at [facility] Still have the port, no longer [...] years: 103.50 Start date: 1971 Quit date: 2018 Years since quittin.3 Smokeless tobacco: Never Used [...] 793.11, ICD10: R91.1 - encouraged to call mechanical repair worker/onc if needs further follow up and imaging. Herminia Case * Lala Menard Pss - 08/06/2021 4:35 PM EDT MAMMOGRAM Never done documented in this encounterUniversity Hospitals Lake [facility] Center05-19-2022 Miscellaneous Notes* Telephone Encounter - Whit Shay LPN - 08/06/2021 2:02 PM EDT Request completed and faxed. * Telephone Encounter - Herminia Case MD - 08/06/2021 1:41 PM EDT Done. * Telephone Encounter - Whit Shay LPN - 08/06/2021 10:47 AM EDT Type of letter/form/fax request - Home Health Care Orders Form received from [facility] on 08/04/21 floor and placed on MD desk () for completion. Completed form needs to be faxed to [phone]. Route to [place] when form completed for processing documented in this encounterUniversity Hospitals Lake [facility] Center05-10-2022 Miscellaneous Notes* Telephone Encounter - Jessica Kong [...] patient. Slade Mcgee Ma documented in this encounterUniversity Hospitals Lake [facility] Center04-13-2022 Miscellaneous Notes* Telephone Encounter - Jessica Kong APRN.CNP - 07/01/2021 5:04 PM EDT PDMP website checked and validated. All prescriptions have been APPROPRIATELY filled. No suspiciousactivity was identified. 07/01/2021 by Jessica Kong APRN.TONG SETTER * Telephone Encounter - Evangelina Baltazar MA - 07/01/2021 2:26 PM EDT Last appointment: 05-06-21 Next appointment: 08-06-21 Pharmacy verified in Epic. Refill(s) requested: Pending Prescriptions Disp Refills OXYCODONE-ACETAMINOPHEN 5 MG-325 MG TABLET 120 tablet 0 Sig: Take 1 tablet by mouth every 6 hours as needed for pain for up to 30 days. SAULO Class: C-II SLAVA: No Order(s) pended. Please advise. Evangelina Baltazar MA, DIRECTOR NURSING SERVICE documented in this encounterUniversity Hospitals Lake [facility] Center04-13-2022 Miscellaneous Notes* Telephone Encounter - Evangelina Baltazar MA - 07/01/2021 2:17 PM EDT Last appointment: 05-06-21 Next appointment: 08-06-21 Pharmacy verified in Epic. Refill(s) requested: Pending Prescriptions Disp Refills PREDNISONE 20 MG TABLET 12 tablet 0 Si tabs daily x 3 days, then 1 tab daily x 3 days, then 1/2 tab daily x 4 days SLAVA: No Order(s) pended. Please advise. Evangelina Baltazar MA, DIRECTOR NURSING SERVICE documented in this encounterUniversity Hospitals Lake [facility] Center10-08-2021 History of Present illness Narrative* Shelley Lott RN - 12/26/2020 9:45 AM EDT Patient here for port access prior to CT scan, labs drawn via port. 1015 Patient taken to radiology by this RN, left at window with registration. documented in this [facility] Work Phone: 1(358) 470-183107-29-2021 Hospital Discharge instructions* Instructions* Nelda LaurenDB - NADEEM - 10/16/2020 Use a hemorrhoid pillow for the coccyx fracture, take your pain medication. * Attachments The following attachments cannot be sent through Care Everywhere. * Coccyx Injury ([place]) documented in this [facility] Work Phone: 1(560) 895-523107-07-2021 History of Present illness Narrative* Judy Mayer RN - 09/24/2020 10:55 AM EDT Arrival Note Patient is here for port access and flush for CT scan Labs were not ordered. 1230-Ordered treatment completed. Patient discharged without any issues. Patient has a copy of nextinfusion appointment and verbalizes understanding. All questions answered. [facility]: Evaluation note* Diagnosis Poor venous [...] thoracic vertebra (HCC) documented in this encounter [facility] note* Diagnosis Compression fracture of body of thoracic vertebra (HCC) documented in this encounter [facility] note* Diagnosis COPD (chronic obstructive pulmonary disease) with acute bronchitis (HCC) Obstructive chronic bronchitis with acute bronchitis [facility] Diagnosis Panlobular emphysema (HCC)- Primary [...] Solitary pulmonary nodule documented in this encounter [facility]* Diagnosis Compression fracture of body of thoracic vertebra (HCC) documented in this encounter [facility]* Diagnosis Malignant neoplasm of exocervix (HCC)- Primary Malignant neoplasm of exocervix Abnormal chest CT Nonspecific (abnormal) findings on radiological and other examination of other intrathoracic organs Other specified complication of vascular prosthetic devices, implants and grafts, initial encounter ([facility]) Poor venous access Other specified circulatory system disorders documented in this encounter [facility] Work Phone: Evaluation note* Diagnosis Malignant neoplasm of exocervix (HCC) Malignant neoplasm of exocervix Abnormal findings on diagnostic imaging of other specified body structures Abnormal chest CT Nonspecific (abnormal) findings on radiological and other examination of other intrathoracic organs documented in this encounter [employer] Work Phone: Evaluation note* Diagnosis Compression fracture of body of thoracic vertebra ([facility]) [facility] Medication management Encounter for long-term (current) use of other medications [facility] Diagnosis Hyperlipidemia, mixed Mixed hyperlipidemia [facility]* Diagnosis Compression fracture of body of thoracic vertebra (HCC) [facility]* Diagnosis Other acute sinusitis, recurrence not specified- Primary [facility]* Diagnosis Chronic midline low back pain without sciatica [facility] Diagnosis Medication management Encounter for long-term (current) use of other medications [facility] Diagnosis Panlobular emphysema (HCC)- Primary Other emphysema [facility]* Diagnosis COPD (chronic obstructive pulmonary disease) with acute bronchitis (HCC)- Primary Obstructive chronic bronchitis with acute bronchitis DDD (degenerative disc disease), lumbar Degeneration of lumbar or lumbosacral intervertebral disc Major depression, recurrent, chronic (HCC) Major depressive disorder, recurrent episode, unspecified documented in this encounter [facility]* Diagnosis Chronic midline low back pain without sciatica documented in this encounter [facility]* Diagnosis Compression fracture of body of thoracic vertebra (HCC) documented in this encounter [facility]* Diagnosis Other closed nondisplaced fracture of [...] thoracic vertebra (HCC) documented in this encounter [facility]* Diagnosis Chronic respiratory failure with hypoxia (HCC)- Primary Chronic respiratory failure Panlobular emphysema (HCC) Other emphysema documented in this encounter [facility]* Diagnosis Encounter for screening mammogram for breast cancer documented in this encounter [facility]* Diagnosis Compression fracture of body of thoracic vertebra (HCC) Other closed nondisplaced fracture of proximal end of right humerus with routine healing, subsequent encounter documented in this encounter [facility] note* Diagnosis Major depression, recurrent, chronic (HCC) Major depressive disorder, recurrent episode, unspecified [facility] Diagnosis Medication management Encounter for long-term (current) use of other medications documented in this encounter [facility] note* Diagnosis Panlobular emphysema (HCC)- Primary Other [...] recurrent episode, unspecified documented in this encounter [facility] note* Diagnosis Major depression, recurrent, chronic (HCC) Major depressive disorder, recurrent episode, unspecified [facility] Diagnosis Malignant neoplasm of exocervix (HCC)- Primary Malignant neoplasm of exocervix Encounter for screening mammogram for malignant neoplasm of breast documented in this encounter [facility] note* Diagnosis Compression fracture of body of thoracic vertebra (HCC) Other closed nondisplaced fracture of proximal end of right humerus with routine healing, subsequent encounter documented in this encounter [facility] note* Diagnosis Major depression, recurrent, chronic (HCC) Major depressive disorder, recurrent episode, unspecified documented in this encounter [facility] note* Diagnosis Pulmonary emphysema, unspecified emphysema type ([facility]) documented in this encounter [facility] note* Diagnosis Nondisplaced fracture of neck of left femur (HCC)- Primary Closed displaced intertrochanteric fracture of left femur, initial encounter ([facility]) documented in this encounter [facility] note* Diagnosis Compression fracture of body of thoracic vertebra (HCC) documented in this encounter [facility] note* Diagnosis Compression fracture of body of thoracic vertebra (HCC) Other closed nondisplaced fracture of proximal end of right humerus with routine healing, subsequent encounter documented in this encounter [facility] note* Diagnosis Hyperlipidemia, mixed Mixed hyperlipidemia [facility]* Diagnosis Pulmonary emphysema, unspecified emphysema type ([facility]) documented in this encounter [facility] note* Diagnosis Age-related osteoporosis without current pathological fracture Senile osteoporosis documented in this encounter [facility] note* Diagnosis Age-related osteoporosis with current pathological fracture of left femur with routine healing- Primary Aftercare for healing pathologic fracture of upper leg documented in this encounter [facility] note* Diagnosis Compression fracture of body of [...] with routine healing, subsequent encounter Moderate malnutrition ([facility]) Malnutrition of moderate degree documented in this encounter [facility] note* Diagnosis Lumbar compression fracture, closed, initial encounter ([facility])- Primary Lumbar compression fracture, closed, initial encounter (HCC) Fall, initial encounter Multiple falls Nondisplaced fracture of neck of left femur (HCC) documented in this encounter [facility] note* Diagnosis Compression fracture of body of thoracic vertebra (HCC) Other closed nondisplaced fracture of proximal end of right humerus with routine healing, subsequent encounter documented in this encounter [facility]* Diagnosis PAUL (generalized anxiety disorder)- Primary [...] depressive disorder (HCC) documented in this encounter [facility]* Diagnosis Moderate episode of recurrent major depressive disorder (HCC)- Primary Panlobular emphysema (HCC) Other emphysema documented in this encounter [facility]* Diagnosis Age-related osteoporosis with current pathological fracture of left femur, initial encounter ([facility])- Primary documented in this encounter [facility]* Diagnosis PAUL (generalized anxiety disorder) Generalized anxiety disorder documented in this encounter [facility]* Diagnosis Compression fracture of body of thoracic vertebra (HCC) Other closed nondisplaced fracture of proximal end of right humerus with routine healing, subsequent encounter documented in this encounter [facility]* Diagnosis Compression fracture of body of thoracic vertebra (HCC) Other closed nondisplaced fracture of proximal end of right humerus with routine healing, subsequent encounter documented in this encounter [facility]* Diagnosis Encounter for screening mammogram for breast cancer [facility]* Diagnosis Compression fracture of body of thoracic vertebra (HCC) Other closed nondisplaced fracture of proximal end of right humerus with routine healing, subsequent encounter [facility]* Diagnosis Pulmonary emphysema, unspecified emphysema type (HCC) [facility]* Diagnosis Moderate episode of recurrent major depressive disorder (HCC) PAUL (generalized anxiety disorder) Generalized anxiety disorder [facility]* Diagnosis Moderate episode of recurrent major depressive disorder (HCC) PAUL (generalized anxiety disorder) Generalized anxiety disorder [facility]* Diagnosis Medication management Encounter for long-term (current) use of other medications documented in this encounter [facility]* Diagnosis Moderate episode of recurrent major depressive disorder (HCC)- Primary Panlobular emphysema (HCC) Other emphysema Chronic respiratory failure with hypoxia (HCC) Chronic respiratory failure [facility]* Diagnosis Major depression, recurrent, chronic (HCC) Major depressive disorder, recurrent episode, unspecified documented in this encounter [facility]* Diagnosis Bronchitis- Primary Bronchitis, not specified as acute or chronic COPD exacerbation (HCC) Obstructive chronic bronchitis with exacerbation documented in this encounter [facility] note* Diagnosis Compression fracture of body of thoracic vertebra (HCC) Other closed nondisplaced fracture of proximal end of right humerus with routine healing, subsequent encounter [facility]* Diagnosis Herpes zoster without complication- Primary Herpes zoster without mention of complication documented in this encounter [facility]* Diagnosis Compression fracture of body of thoracic vertebra (HCC) Other closed nondisplaced fracture of proximal end of right humerus with routine healing, subsequent encounter documented in this encounter [facility] note* Diagnosis Moderate episode of recurrent major depressive disorder (HCC) [facility]* Diagnosis Falls frequently- Primary Personal history of fall Near syncope Closed head injury, initial encounter Fall, initial encounter Compression fracture of T5 vertebra, initial encounter ([facility]) Compression fracture of T7 vertebra, initial encounter ([facility]) Compression fracture of T8 vertebra, initial encounter ([facility]) Compression fracture of L1 vertebra, initial encounter ([facility]) Severe malnutrition (CMS/HCC) (HCC) Nutritional marasmus Chronic back pain Unspecified backache COPD (chronic obstructive pulmonary disease) (HCC) Chronic airway obstruction, not elsewhere classified Supplemental oxygen dependent Dependence on supplemental oxygen Unintentional weight loss Loss of weight Debility Unspecified debility documented in this encounter [facility] note* Diagnosis OPENED IN ERROR- Primary To allow closing an encounter opened in error (used in SmartSet) documented in this encounter [facility] note* Diagnosis Pathological fracture of vertebra due to other osteoporosis with routine healing, subsequent encounter- Primary documented in this encounter [facility] note* Diagnosis Pulmonary emphysema, unspecified emphysema type (HCC) documented in this encounter [facility]* Diagnosis Osteoporotic vertebral collapse, with routine healing, subsequent encounter- Primary documented in this encounter [facility] note* Diagnosis Fall, initial encounter- Primary Compression fracture of body of thoracic vertebra (HCC) documented in this encounter [facility] note* Diagnosis Moderate episode of recurrent major depressive disorder (HCC) documented in this encounter [facility]* Diagnosis Compression fracture of body of thoracic vertebra (HCC) Other closed nondisplaced fracture of proximal end of right humerus with routine healing, subsequent encounter documented in this encounter [facility]* Diagnosis Pulmonary emphysema, unspecified emphysema type (HCC) documented in this encounter [facility]* Diagnosis Osteoporotic vertebral collapse, with routine healing, subsequent encounter- Primary documented in this encounter [facility]* Diagnosis Panlobular emphysema (HCC) Other emphysema Compression fracture of body of thoracic vertebra (HCC) Other closed nondisplaced fracture of proximal end of right humerus with routine healing, subsequent encounter documented in this encounter [facility]* Diagnosis Age-related osteoporosis without current pathological fracture Senile osteoporosis documented in this encounter [facility]* Diagnosis Panlobular emphysema (HCC) Other emphysema [facility] Diagnosis Compression fracture of body of thoracic vertebra (HCC) Other closed nondisplaced fracture of proximal end of right humerus with routine healing, subsequent encounter documented in this encounter [facility]* Diagnosis PAUL (generalized anxiety disorder) Generalized anxiety disorder documented in this encounter [facility]* Diagnosis Malignant neoplasm of exocervix (HCC)- Primary Malignant neoplasm of exocervix documented in this encounter [facility] note* Diagnosis Fall, initial encounter- Primary Fall, initial encounter Facial laceration, initial encounter Closed fracture of neck of right humerus, initial encounter Humeral head fracture, right, closed, initial encounter Humeral head fracture, right, closed, initial encounter documented in this encounter [facility] note* Diagnosis Compression fracture of body of thoracic vertebra (HCC) Other closed nondisplaced fracture of proximal end of right humerus with routine healing, subsequent encounter documented in this encounter [facility]* Diagnosis Moderate episode of recurrent major depressive disorder (HCC) documented in this encounter [facility]* Diagnosis Moderate episode of recurrent major depressive disorder (HCC) PAUL (generalized anxiety disorder) Generalized anxiety disorder documented in this encounter [facility]* Diagnosis Pulmonary emphysema, unspecified emphysema type (HCC) [facility]* Diagnosis Contusion of face, initial encounter- Primary documented in this encounter [facility] note* Diagnosis Compression fracture of body of [...] healing, subsequent encounter documented in this encounter [facility] note* Diagnosis Moderate episode of recurrent major depressive disorder (HCC) Compression fracture of body of thoracic vertebra (HCC) Other closed nondisplaced fracture of proximal end of right humerus with routine healing, subsequent encounter documented in this encounter [facility] note* Diagnosis Panlobular emphysema (HCC)- Primary Other emphysema Moderate episode of recurrent major depressive disorder (HCC) Chronic respiratory failure with hypoxia (HCC) Chronic respiratory failure documented in this encounter [facility] note* Diagnosis Compression fracture of body of thoracic vertebra (HCC) Other closed nondisplaced fracture of proximal end of right humerus with routine healing, subsequent encounter documented in this encounter [facility] note* Diagnosis Chronic respiratory failure with hypoxia (HCC)- Primary Chronic respiratory failure Centrilobular emphysema (HCC) Other emphysema Adult failure to thrive Severe protein-calorie malnutrition (HCC) Other severe protein-calorie malnutrition documented in this encounter [facility] note* Diagnosis Chronic obstructive pulmonary disease, unspecified COPD type (HCC)- Primary Severe malnutrition (CMS/HCC) (HCC) Nutritional marasmus documented in this encounter [facility] note* Diagnosis Adult failure to thrive- Primary [...] risk for delirium documented in this encounter [facility] note* Diagnosis PAUL (generalized anxiety disorder) Generalized anxiety disorder documented in this encounter [facility] note* Diagnosis Hospital discharge follow-up- Primary Other follow-up examination Acute on chronic respiratory failure with hypoxia (HCC) Centrilobular emphysema (HCC) Aspiration pneumonia of left lower lobe, unspecified aspiration pneumonia type (HCC) Chronic obstructive pulmonary disease with acute lower respiratory infection (HCC) History of tobacco abuse Severe malnutrition (CMS/HCC) (HCC) Nutritional marasmus documented in this encounter [facility] note* Diagnosis Compression fracture of body of thoracic vertebra (HCC) Other closed nondisplaced fracture of proximal end of right humerus with routine healing, subsequent encounter documented in this encounter [facility] note* Diagnosis Other specified complication of vascular prosthetic devices, implants and grafts, initial encounter ([facility])- Primary Poor venous access documented in this encounter [facility] Discharge instructions* Attachments The following attachments cannot be sent through Care Everywhere. * Acute Bronchitis Discharge Instructions, Adult ([place]) documented in this [facility] Discharge instructions* Attachments The following attachments cannot be sent through Care Everywhere. * Closed Head Injury Discharge Instructions ([place]) documented in this [facility] for referral (narrative)* Diagnostic Procedure Only (Routine) - Pending Review Specialty Diagnoses / Procedures Referred By Lisa french Referred To Contact BR IMAGING Diagnoses Encounter for screening mammogram for breast cancer Procedures PAOLO SCREENING SCREENING MAMMOGRAPHY BI 2-VIEW BREAST INC Herminia Perkins MD [address] [place] [address] Br Imaging [address] [place] [phone] Referral ID Status Reason Start Date Expiration Date Visits Requested Visits Authorized [id number] Pending Review Auto-Generat ed Referral 07/14/2022 08/13/2023 1 1 [facility] for referral (narrative)* Diagnostic Procedure Only (Routine) - Pending Review Specialty Diagnoses / Procedures Referred By Lisa french Referred To Contact BR IMAGING Diagnoses Encounter for screening mammogram for breast cancer Procedures PAOLO SCREENING SCREENING MAMMOGRAPHY BI 2-VIEW BREAST INC Herminia Perkins MD [address] [place] [address] Imaging [address] [place] [address] Referral ID Status Reason Start Date Expiration Date Visits Requested Visits Authorized [id number] Pending Review Auto-Generat ed Referral 06/22/2023 07/21/2024 1 1 [facility] for visit Narrative* Treatment Plan (Routine) Status Reason Specialty Diagnoses / Procedures Referred By Contact Referred To Contact Authorized Diagnoses Malignant neoplasm of exocervix (HCC) Poor venous access Ziyad Menendez MD [address] [facility] [address] [place] [address] [facility] [address] [place] [address] [employer] Work Phone: Reason for visit Narrative* Treatment Plan and Therapy Plan (Routine) Status Reason Specialty Diagnoses / Procedures Referred By Contact Referred To Contact Authorized Diagnoses Malignant neoplasm of exocervix (HCC) Poor venous access Ziyad Menendez MD [address] [facility] [place] [address] [facility] [address] [place] [address] [employer] Work Phone: Reason for visit Narrative* Treatment Plan and Therapy Plan (Routine) - Pending Review Specialty Diagnoses / Procedures Referred By Contac t Referred To Contact Diagnoses Poor venous access Other specified complication of vascular prosthetic devices, implants and grafts, initial encounter ([facility]) Herminia Case MD [address] [place] [address] b Med Onc [address] [place] [address] Referral ID Status Reason Start Date Expiration Date V isits Requested Visits Authorized [id number] Pending Review 08/06/2021 08/06/2022 1 1 [employer] Work Phone: Discharge Instructions * Pharmacy* Estee Pantoja [facility] - 08/03/2019 8:17 AM EDT * Additional [...] doctor for further instructions HERMINIA CASE MD [phone] RED ZONE: Medical Alert Severe or unrelieved shortness of breath at rest Unrelieved chest pain Not able to do any activity because of breathing Not able to sleep because of breathing Confusion or you can't think clearly This Means You Should Call 911 Immediately documented in this encounter* Attachments The following attachments cannot be sent through Care Everywhere. * Compression Fracture: Spine ([place]) documented in this encounter* Instructions* Ankit [...] Real RN - 11/05/2019 Please bring your [facility] Retention Education Surgical Information folder on the day of [...] through Care Everywhere. * Hysterectomy: Abdominal: Pre-op ([place]) * Oophorectomy: Pre-op ([place]) documented in this encounter* Instructions* Tani Joseph MD - 11/09/2019 Come back tomorrow for your ultrasound. If you have any chest pain or shortness of breath return tot emergency department immediately * Attachments The following attachments cannot be sent through Care Everywhere. * Edema: Leg and Ankle ([place]) documented in this encounter* Instructions* Jaspreet [...] Do not operate equipment for 24 hours (lawnmowers, power tools, kitchen accessories, stove). Do not drink [...] call and ask for the Interventional Radiologist environmental services coordinator. IF YOU REPORT TO AN EMERGENCY ROOM, DOCTOR'S OFFICE OR HOSPITAL WITHIN 24 HOURS AFTER YOUR PROCEDURE, BRING THIS SHEET AND YOUR AFTER VISIT SUMMARY WITH YOU AND GIVE IT TO THE PHYSICIAN OR NURSE ATTENDING YOU.Implanted Port: What to Expect at Home Your Recovery Questions: [phone] You have had a procedure to implant [...] When should you call for help? Call 911 anytime you think you may need emergency [...] (before 7am or after 5 pm) call [phone] and ask for the Interventional Radiologist environmental services coordinator. Where can you learn more? Go to [email or web address] and sign in to your [employer] account. Enter M256 in the Search Health Information box to learn more about Implanted Port: What to Expect at Home. If you do not have an account, please click on the "Sign Up Now" link. Current as of: August 15, 2015 Content Version: 11.2 6640-6176 [employer]. Care instructions adapted under license by [employer]. If youhave questions about a medical condition or this instruction, always ask your healthcare professional. [employer] disclaims any warranty or liability for your use of this information. documented in this encounter* Attachments The following attachments cannot be sent through Care Everywhere. * COPD: General Info ([place]) * Bronchitis ([place]) documented in this encounter* Discharge Instr [...] at most local grocery stores, pharmacies, and [employer]-stores. ? If you have any questions about your diet or nutrition, call the hospital and ask for the dietitian. General * Discharge Instr - Other Orders* Jessica Tubbs RN - 11/22/2019 1:27 PM EDT Your physician has ordered skilled home care services for you. Your home care will be provided by: [facility] [phone] * Attachments The following attachments cannot be sent through Care Everywhere. * Ischemic Stroke: General Info ([place]) documented in this encounter History of Present Illness * Phillip Snyder, LEATHER WHITENER - 08/04/2019 1:28 PM EDT [facility] Respiratory Care Department Progress Note SpO2 at [...] EDT Hospitalist Progress Note 08/03/2019 2:56 PM [phone]: Please page me ([phone]) for patient care issues. [phone]: Please page [facility] night Hospitalist for any issues. Subjective: Admit Date: 08/02/2019 PCP: HERMINIA CASE MD Room#: 458/4582 Interval History: No [...] Chest pain COPD (chronic obstructive pulmonary disease) ([facility]) USE OXYGEN 3 L AT NIGHT DDD (degenerative disc disease), cervical Defect, retina, with detachment right DJD (degenerative joint disease), lumbar Emphysema lung (HCC) Former smoker Hematuria SCHEDULED FOR THE PROCEDURE /SURGERY ON 02/11/2017 Hypokalemia Lung nodules Osteoporosis Palpitations Pneumonia Recurrent major depression ([facility]) Sciatica Thoracic compression fracture (HCC) Vitamin D deficiency Medications: methylPREDNISolone 40 mg Intravenous Q8H azithromycin 500 mg Oral Daily cefTRIAXone (ROCEPHIN) IV 1 g Intravenous Q24H buPROPion 50 mg Oral Daily gabapentin 100 mg Oral BID montelukast 10 mg Oral Nightly sertraline 200 mg Oral Daily traZODone 50 mg Oral Nightly LABS: CBC: Recent Labs 08/02/19175608/03/19 0519 WBC 12.6* 10.8* RBC 3.98 3.79* HGB 12.5 11.9 HCT 37.5 35.8 MCV 94.3 94.5 RDW 14.1 14.0 PLT 196 180 BMP: Recent Labs 08/02/19175608/03/19 05 NA 139 134* K 3.5 3.7 CL [...] of Hospitalist Medicine Inpatient Medical Services PAGER: [phone] documented in this encounter* Brandy Del Real [...] for lab draw, CBCdiff/CMP/Mag from port to [facility]. Pt just came from office visit with [...] HERMINIA CASE MD Room#: 454/4542 Interval History: c/o feeling very anxious. Doesn't [...] 11/23/2019 11:46 AM EDT Physical Therapy Facility/Department: [facility] TE[facility] Initial Assessment NAME: Gonzalo Deluca [...] test, Allergic rhinitis, Arthritis, Asthma, Bronchitis, Cancer ([facility]), Cervical cancer (HCC), Chest pain, COPD (chronic obstructive pulmonary disease) ([facility]), DDD (degenerative disc disease), cervical, Defect, retina, with detachment, DJD (degenerative joint disease), lumbar, Emphysema lung ([facility]), Former smoker, Hematuria, Hypokalemia, Lung nodules, Osteoporosis, Palpitations, Pneumonia, Recurrent major depression (HCC), Sciatica, Thoracic compressionfracture ([facility]), and Vitamin D deficiency. has a past [...] Assistance: Independent(no device) Transfer Assistance: Independent Active Architectural Engineering Teacher: Yes Mode of Transportation: Car Occupation: On [...] for falls, Left in bed, Nurse notified [facility] Score [facility] Inpatient Mobility Raw Score : 21 (11/23/19 114) [facility] Inpatient T-Scale Score : 50.25 (11/23/191140) Mobility Inpatient CMS 0-100% Score: 28.97 (11/23/19 114) Mobility Inpatient CMS G-Code Modifier : CJ (11/23/191140) [facility] Mobility Inpatient How much difficulty turning over [...] climbing 3-5 steps with a railing?: Total [facility] Inpatient Mobility Raw Score : 21 [facility] Inpatient T-Scale Score : 50.25 Mobility Inpatient CMS 0-100% Score: 28.97 Mobility Inpatient CMS G-Code Modifier : CJ Goals Short term goals Time Frame for Short term goals: EVAL ONLY Patient Goals Patient goals : Pt states she wants to get home Therapy Time Individual Concurrent Group Co-treatment Time In 1001(co-eval with OT) Time Out 1015 Minutes 14 Jennifer Esparza, PT * Catalina Graff, OT - 11/23/2019 11:41 AM EDT Occupational [...] test, Allergic rhinitis, Arthritis, Asthma, Bronchitis, Cancer ([facility]), Cervical cancer (HCC), Chest pain, COPD (chronic obstructive pulmonary disease) ([facility]), DDD (degenerative disc disease), cervical, Defect, retina, with detachment, DJD (degenerative joint disease), lumbar, Emphysema lung ([facility]), Former smoker, Hematuria, Hypokalemia, Lung nodules, Osteoporosis, Palpitations, Pneumonia, Recurrent major depression ([facility]), Sciatica, Thoracic compressionfracture ([facility]), and Vitamin D deficiency. has a past surgical history that includes eye surgery; Tubal ligation; Cystoscopy (01/12/2017); Cystocopy (02/11/2017); and Hysterectomy (11/06/2019). Restrictions Restrictions/Precautions Restrictions/Precautions: General Precautions, Fall Risk(3L O2, tele) Required Braces or Orthoses?: No Subjective General Chart Reviewed: Yes Patient assessed for rehabilitation services?: Yes Family / Caregiver Present: No Subjective Subjective: Pt pleasant and cooperative. General Comment Comments: Per RN, ok for pt to participate [...] Assistance: Independent(no device) Transfer Assistance: Independent Active Architectural Engineering Teacher: Yes Mode of Transportation: Car Occupation: On [...] Gross LUE Strength: WFL L Hand General: 5 RUE Strength Gross RUE Strength: WFL R Hand General: 07/23 Plan Plan Plan Comment: POC and goals were made in collaboration with the pt. AM-PAC Score AM-PAC Inpatient Daily Activity Raw Score: 24 (11/23/191137) [facility] Inpatient ADL T-Scale Score : 57.54 (11/23/191137) ADL Inpatient CMS 0-100% Score: 0 (11/23/191137) ADL Inpatient CMS G-Code Modifier : CH (11/23/191137) Therapy Time Individual Concurrent Group Co-treatment Time In 1001(co-eval with PT) Time Out 1015 Minutes 14 Catalina Graff OT * Dayana Roman PT - 11/22/2019 2:59 PM EDT Physical Therapy Facility/Department: [facility] Initial Assessment NAME: Gonzalo Deluca : 1955 Date of Service: 11/22/2019 Chart reviewed. Pt is currently off the floor at MRI. Will continue to follow and re-attempt as appropriate. Dayana Roman PT, DPT * Stacie Granados OT - 11/22/2019 2:59 PM EDT Occupational Therapy Occupational Therapy Initial Assessment Date: 11/22/2019 Patient Name: Gonzalo Deluca : 1955 Date of Service: 11/22/2019 OT eval attempted this PM, however pt currently off floor for MRI. Will continue to follow and attempt assessment as appropriate. Stacie Granados OT * Aparna Walter, 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 - TONG SETTER - 11/22/2019 2:07 PM EDT Hospitalist Progress [...] 2.8* PROT 6.3 5.4* PT/INR: Recent Labs 11/21/191558 PROTIME 10.1 INR 1.0 CARDIAC ENZYMES: Recent [...] Medicine Inpatient Medical Services * Gary Lugo, LAILA, LD - 11/22/2019 10:40 AM EDT Comprehensive [...] head/neck and MRI of the brain pending. [facility] screened; no diet texture change recommended at [...] Accumulation: 1 - Mild Extremities(+1-2 RLE Edema) Personal Investment Adviser Strength: Not Performed Estimated Daily Nutrient Needs: Energy (kcal): 6287-9757 kcals; Weight Used for Energy Requirements: [place](57kg) Protein (g): 57-68(1-1.2); Weight Used for Protein Requirements: [place](57kg) Fluid (ml/day): 1710 ml/day or per MD; Weight Used for Fluid Requirements: [place] Nutrition Related Findings: +1-2 RLE edema; K+ [...] lb (70.3 kg)(150-155# in the last month) [place] Body Weight: 125 lbs; % [place] Body Weight 124.8 % BMI: 26 Adjusted [...] weakness, dysarthria, or language deficits. Amelie Esquivel M.A.CCC/[facility] Speech-Language Pathologist documented in this encounter* Florencia Torres, RN - 06/09/2020 3:30 PM EDT Patient arrived ambulatory for port flush. Port last flushed in February. Patient saw MD prior to arrival. Patient has no complaints and verbalizes understanding of POC. Med port accessed and flusheseasily. No blood return. Patient wishes not to have cathflo today due to time restraints. Wants to be scheduled in [place] for cathflo this week. Pham aware and [...] Other specified circulatory system disorders Advance Directives No Advanced Directives Records FoundDocuments on File Type Date Recorded 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 Advance Directives and Living Will Power of Single Resource Boss Latest Code Status on File Code Status [...] Documents on File Type Date Recorded 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 ACP-Advance Directive ACP-Power of Single Resource Boss Latest Code Status on File Code Status Date Activated Date Inactivated Comments Full Code 11/06/2019 12:37 PM 11/08/2019 9:35 PM Full Code 11/06/2019 7:02 AM 11/06/2019 12:22 PM Full Code 08/03/2019 5:57 PM 08/04/2019 5:09 PM Full Code 10/17/2018 1:23 AM 10/18/2018 8:29 PM Full Code 06/05/2018 7:30 AM 06/07/2018 7:14 PM Documents on File Type Date Recorded 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 ACP-Advance Directive ACP-Power of Single Resource Boss Latest Code Status on File Code Status [...] Documents on File Type Date Recorded 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 Advance Directive(s) 09/12/2020 12:26 PM Documents on File Type Date Recorded 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 Advance Directive(s) 09/12/2020 12:26 PM [...] Documents on File Type Date Recorded 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 DNR (Do Not Resuscitate) 07/31/2024 3:36 PM [place] DNR Form Date Activated Date Inactivated Comments [...] Documents on File Type Date Recorded 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 DNR (Do Not Resuscitate) 07/31/2024 3:36 PM [place] DNR Form Date Activated Date Inactivated Comments [...] Lower Extremity Venous Right Tani Joseph MD [address] [place] [address] Status Reason Specialty Diagnoses / Procedures Referre d By Contact Referred To Contact Closed Radiology Diagnoses Malignant neoplasm of exocervix (HCC) Procedures XA SPECIAL ANGIOGRAPHY PROCEDURE Ziyad Menendez MD [address] [place] [address], [address] [place] [address] Status Reason Specialty Diagnoses / Procedures Referre d By Contact Referred To Contact Closed Radiology Diagnoses Malignant neoplasm of exocervix (HCC) Lung nodule seen on imaging study Procedures CT CHEST ABDOMEN PELVIS W CONTRAST Ziyad Menendze MD [address] [facility] [place] [address] Status Reason Specialty Diagnoses / Procedures Referre d By Contact Referred To Contact Open Radiology Diagnoses Abnormal CT of the chest Procedures CT Chest W Contrast Ziyad Menendez MD [address] [facility] [place] [address] Status Reason Specialty Diagnoses / Procedures Referred By Contact Referred To Contact Open Specialty Services Required Orthopedic Surgery Diagnoses Closed fracture of coccyx, initial encounter ([facility]) Lauren Lutz APRN - TONG SETTER [address] [place] [address] [facility] Keiko Kern [place]la [address] [address] [place] [address] Scheduling Instructions [facility] Orthopedics - [place] [address] [place] [address] Specialty Diagnoses / Procedures Referred By Contac t Referred To Contact Pulmonary and Critical Care Medicine Diagnoses Panlobular emphysema (HCC) Chronic respiratory failure with hypoxia (HCC) Procedures CONSULT TO PULM/CRITICAL CARE OFFICE/OUTPATIENT [facility] 60-74 MINUTES Herminia Case MD [address] [place] [address] Referral ID Status Reason Start Date Expiration Date Visits Requested Visits Authorized [id number] Pending Review PCP Requested Referral 08/06/2021 08/06/2022 1 1 Specialty Diagnoses / Procedures Referred By Contac t Referred To Contact BR IMAGING Diagnoses Encounter for screening mammogram for malignant neoplasm of breast Procedures PAOLO SCREENING W CARON SCREENING DIGITAL BREAST TOMOSYNTHESIS BI SCREENING MAMMOGRAPHY BI 2-VIEW BREAST INC CAD Herminia Case MD [address] [place] [address] Br Imaging [address] [place] [address] Referral ID Status Reason Start Date Expiration Date Visits Requested Visits Authorized [id number] Pending Review Auto-Generat ed Referral 08/06/2021 09/05/2022 1 1 Specialty Diagnoses / Procedures Referred By Contac t Referred To Contact Radiology Diagnoses Malignant neoplasm of exocervix (HCC) Abnormal chest CT Procedures CT Chest W Contrast Ziyad Menendez MD [address] [facility] [place] [address] Referral ID Status Reason Start Date Expiration Date Visits Re quested Visits Authorized [id number] Closed 09/17/2021 09/17/2022 1 1 Specialty Diagnoses / Procedures Referred By Contac t Referred To Contact Gena Michaels APRN.[facility] [address] [place] [address] Referral ID Status Reason Start Date Expiration Date V isits Requested Visits Authorized [id number] Pending Review 1 1 Specialty Diagnoses / Procedures Referred By Contac t Referred To Contact Radiology Diagnoses Malignant neoplasm of exocervix (HCC) Procedures CT chest wo IV contrast Kisha Pepe, 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 - TONG SETTER [address] [facility] [address] [place] [address] Referral ID Status Reason Start Date Expiration Date V isits Requested Visits Authorized [id number] Pending Review 10/20/2022 04/18/2023 1 1 Specialty Diagnoses / Procedures Referred By Contac t Referred To Contact Diagnoses Family history of breast cancer Malignant neoplasm of exocervix (HCC) Procedures CONSULT TO MEDICAL GENETICS - CANCER MEDICAL GENETICS COUNSELING EACH 30 MINUTES Herminia Case MD [facility] [place] [address] [place] [address] Referral ID Status Reason Start Date Expiration Date Visits Requested Visits Authorized [id number] Pending Review PCP Requested Referral Auto-Generate d [...] Poor venous access Ziyad Menendez MD [address] [facility] [place] [address] [facility] [address] [place] [address] Reason Comments Fall Elbow Pain Tailbone Pain Reason Onset Date Comments Refill Request 07/01/2021 Reason Onset Date Comments Refill Request 07/28/2021 Reason Comments Orders [facility] Reason Comments Follow Up Reason Comments Patient Question Reason Onset Date Comments Refill Request 08/26/2021 Specialty Diagnoses / Procedures Referred By Contac t Referred To Contact Radiology Diagnoses Malignant neoplasm of exocervix (HCC) Abnormal chest CT Procedures CT Chest W Contrast Ziyad Menendez MD [address] [facility] [place] [address] Referral ID Status Reason Start Date Expiration Date Visits Re quested Visits Authorized [id number] Closed 09/17/2021 09/17/2022 1 1 Reason Comments [...] intertrochanteric fracture of left femur, initial encounter ([facility]) Procedures . Raul Whipple DO [address] [place] [address] [facility] 4s Telemetry [address] [place] [address] Referral ID Status Reason Start Date Expiration Date Visits Re quested Visits Authorized [id number] 1 1 Reason Onset Date Comments Refill [...] encounter Lumbar compression fracture, closed, initial encounter ([facility]) Procedures . Lauren Serna MD [address] [facility] [address] [address] [facility] [address] [place] [address] Referral ID Status Reason Start Date Expiration Date Visits Re quested Visits Authorized [id number] 1 1 Reason Onset Date Comments Refill [...] 08/20/2023 Reason Comments Electronic Communication FAX from [place] Andrey yanez is going to be coming [...] Compression fracture of L1 vertebra, initial encounter ([facility]) Procedures r55 Nickolas Rivera MD [address] [place] [address] S[address] [facility] [address] [place] [address] Referral ID Status Reason Start Date Expiration Date Visits Re quested Visits Authorized [id number] 1 1 Reason Onset Date Comments Opened In Error 10/06/2023 Reason Comments Home Care Physical therapy del ayed 1 week Reason Onset Date Comments Home Care Management 10/06/2023 Home care C ertification Form 485 received from [employer] .For cert dates 09/26/2023 - 11/24/2023 that [...] To Contact Diagnoses Fall, initial encounter Procedures [facility] [phone] ...[facility] Dual Complete active per [employer] eff 03/21/22 ...auth required ...pending auth ref# [id number] ...[facility] to fax clinical to [phone] Dianne Dale [address] [place] [address] [facility] Emergency Dept [address] [place] [address] Referral ID Status Reason Start Date Expiration Date Visits Re quested Visits Authorized [id number] 1 1 Reason Onset Date Comments Refill [...] Breath Specialty Diagnoses / Procedures Referred By Lisa t Referred To Contact Diagnoses Adult failure to thrive Severe protein-calorie malnutrition (HCC) Closed supracondylar fracture of left humerus, initial encounter Procedures . Lauren Serna MD [address] [place] [address] Phone: tel: fax: [facility] Cardiac Progressive Care Unit PCU [address] [place] [address] Phone: tel: Referral ID Status Reason Start Date Expiration Date Visits Re quested Visits Authorized [id number] 1 1 Reason Comments Hospital Follow-up COPD,PSA/MSSA/STREP LRTIESTABLISH PULM OUTPATIENT... Reason Onset Date Comments Refill Request 08/18/2024 Reason Onset Date Comments Refill Request 08/22/2024 Reason Comments OP Infusion INFORMATION SOURCE (unrecogn ized section and content) DATE CREATED AUTHOR 10/12/2019 [facility] DATE CREATED AUTHOR AUTHOR'S ORGANIZ ATION 11/14/2019 [facility] DATE CREATED AUTHOR AUTHOR'S ORGANIZ ATION 06/13/2020 [facility] DATE CREATED AUTHOR AUTHOR'S ORGANIZ ATION 09/13/2020 [facility] DATE CREATED AUTHOR AUTHOR'S ORGANIZ ATION 12/19/2021 [facility] DATE CREATED AUTHOR AUTHOR'S ORGANIZ ATION 07/31/2024 [facility] DATE CREATED AUTHOR AUTHOR'S ORGANIZ ATION 09/11/2024 [facility] DATE CREATED AUTHOR AUTHOR'S ORGANIZ ATION 09/22/2024 [facility] Ordered Prescriptions (unrec ognized section and content) [...] or split. 2100 (Given - Provider: Tona Barroso, CHARLEY) 2106 (Given - Provider: Tona Barroso RN) ceFAZolin (Ancef) 2,000 mg in sodium chloride 0.9 % 100 mL IVPB (COMPLETED) 2,000 mg, IntraVENous, at 200 mL/hr, Administer over 30 Minutes, Every 8 hours, First dose on 11/07/22 at 1600, For 2 doses, Phase II/On [...] 10 mg, Oral, Nightly, First dose on 11/06/22 at 2100 2100 (Given - Provider: Tona Barroso RN) 210 (Given - Provider: Tona Barroso RN) nicotine [...] 5 mg, Oral, Once, On 11/06/22 at 1300, For 1 dose 1305 (Given - Provider: Gwen Solorzano RN) oxyCODONE (Roxicodone) immediate release tablet 5 mg (COMPLETED) 5 mg, Oral, Once, On Tue11/06/22 at 1520, For 1 dose 1536 (Given - Provider: Gwen Solorzano RN) QUEtiapine (SEROquel) tablet 200 mg 200 mg, Oral, Nightly, First dose on 11/06/22 at 2115 2214 (Given - Provider: Tona Barroso RN) 210 (Given - Provider: Tona Barroso RN) sertraline (Zoloft) tablet 200 mg 200 mg, Oral, Nightly, First dose (after last modification) on 11/06/22 at 2100 2100 (Given - Provider: Tona Barroso, CHARLEY) 210 (Given - Provider: Tona Barroso RN) sodium [...] Sheldon RN)2107 (See Alternative - Provider: Tona Barroso RN) 0312 (See Alternative - Provider: Tona Barroso RN)1009 (See Alternative - Provider: Austyn Bee RN)1621 (See Alternative - Provider: Austyn Bee RN) [...] specifically ordered. 1250 (Given - Provider: Erna Sheldon RN)1615 (Given - Provider: Erna Sheldon RN)2107 (Given - Provider: Tona Barroso RN) 0312 (Given - Provider: Tona Barroso RN)1009 (Given - Provider: Austyn Bee RN)1621 (Given - Provider: Austyn Bee RN) [...] Alex Mendoza RN)2214 (Given - Provider: Tona Barroso RN) ondansetron (Zofran) injection 4 mg(Linked Group 3) [...] before administering. 0851 (See Alternative - Provider: DB Duong CRNA) oxyCODONE (Roxicodone) immediate release tablet 10 mg(Linked Group 4) 10 mg, Oral, Every 4 hours PRN, severe pain (7-10), Starting on 11/07/22 at 0939, Phase II/On Unit 1013 (Given - Provider: Erna Sheldon RN)1444 (Given - Provider: Erna Sheldon RN)1850 (Given - Provider: Erna Sheldon RN) 0048 (Given - Provider: Tona Barroso, CHARLEY)0855 (Given - Provider: Austyn Bee RN)1323 (Given [...] 81 mg, Oral, Daily, First dose on 02/14/23 at 0900, Do not crush, chew, or split. 0940 (Given - Provider: ARMIN DE OLIVEIRA) 1119 (Given - Provider: ARMIN DE OLIVEIRA) 0924 (Given - Provider: Rimma Mills, CHARLEY) atorvastatin (Lipitor) tablet 40 mg 40 mg, Oral, Nightly, First dose on Tue02/14/23 at 2100 2100 (Given - Provider: Vicente Enciso RN) 2105 (Given - Provider: Cheryl Valdivia, CHARLEY) 2100 [...] 0923 (Given - Provider: Rimma Mills RN) enoxaparin (Lovenox) syringe 40 mg 40 [...] at 2100 210 (Given - Provider: Vicente Enciso RN) 2105 (Given - Provider: Cheryl Valdivia RN) 2100 [...] 2100 (Given - Provider: Vicente Enciso RN) 2105 (Given - Provider: Cheryl Valdivia, CHARLEY) 2100 [...] Daily, First dose on Tue02/16/23 at 1745 2101 (Given - Provider: Vicente Enciso RN) 1120 (Given - Provider: ARMIN DE OLIVEIRA) 0923 (Given - Provider: Rimma Mills RN) Continuous Medication Order 02/16/2023 02/17/2023 02/18/2023 sodium chloride 0.9 % infusion (CANCELED) 100 mL/hr, IntraVENous, Continuous, Starting on Tue02/17/23 at 1130 1130 (New Bag - Provider: ARMIN DE OLIVEIRA) 0309 (New Bag - Provider: Cheryl Valdivia, CHARLEY)1343 (Stopped - Provider: Rimma Mills RN) PRN [...] needed for pain on joints, Starting on Tue02/17/23 at 1620, Apply to affected areas. 2106 (Given - Provider: Cheryl Valdivia RN) HYDROcodone-acetaminophe n ([place]) 5-325 MG per tablet 1 tablet (CANCELED)(Linked Group 2) 1 tablet, Oral, Every 4 hours PRN, moderate pain (4-6), Starting on Tue02/17/23 at 0706, Maximum dose of acetaminophen is 4000 mg from all sources in 24 hours. 1000 (Given - Provider: ARMIN DE OLIVEIAR)1119 (Given - Provider: ARMIN DE OLIVEIRA) naloxone (Narcan) injection 0.4 mg 0.4 mg, IntraVENous, PRN, opioid reversal, Starting on Tue02/17/23 at 1542, For oversedation/difficult to rouse, pinpoint pupils, RR < 8; notify primary team environmental services coordinator if used ondansetron (Zofran) injection 4 mg(Linked [...] pain (4-6), severe pain (7-10), Starting on 02/13/23 at 2325, Maximum dose of acetaminophen is [...] ARMIN DE OLIVEIRA)2336 (Given - Provider: Cheryl Valdivia RN) 0921 (Given - Provider: Rimma Mills RN)1534 (Given - Provider: Rimma Mills RN) [...] For 1 dose 0712 (Given - Provider: Jessica Iqbal [facility]) Linked Groups Order Group 1: acetaminophen (Tylenol) [...] sources in 24 hours. Group 2: HYDROcodone-acetaminophen ([place]) 5-325 MG per tablet 1 tablet (CANCELED)Jump to med 1 tablet, Oral, Every 4 hours PRN, moderate pain (4-6), Starting on Tue02/17/23 at 0706, Maximum dose of acetaminophen is 4000 mg from all sources in 24 hours. Or HYDROcodone-acetaminophen ([place]) 5-325 MG per tablet 2 tablet (CANCELED) [...] sodium chloride 0.9 % 250 mL IVPB (ADD-[place]) (COMPLETED) 500 mg, IntraVENous, Administer over 60 Minutes, Once, On 08/07/23 at 1520, For 1 dose, ADD-[place] bag, Suspected Indication (Select all that apply): [...] (New Bag - Prov ider: Marjorie Ponce RN)1718 (Stopped - Provider: Carolyn Monson RN) predniSONE (Deltasone) tablet 40 mg (COMPLETED) 40 mg, Oral, Once, On 08/07/23 at 1700, For 1 dose 1717 (Given - Provid er: Carolyn Monson RN) sodium chloride 0.9 % bolus 1,701 mL (COMPLETED) 1,701 mL (30 mL/kg 56.7 kg), IntraVENous, at 1,701 mL/hr, Administer over 1 Hours, Once, On 08/07/23 at 1520, For 1 dose 1539 (New Bag - Prov ider: Freddy Rodriguez, VERA)1639 (Stopped - Provider: Carolyn Monson RN) Scheduled Medication Order 09/20/2023 09/21/2023 09/22/2023 acetaminophen (Tylenol) tablet 650 mg 650 mg, Oral, 3 times daily, First dose on Tue09/20/23 at 2099, Maximum dose of acetaminophen is 4000 mg from all sources in 24 hours. 2121 (Given - Provider: Maeve Ryan RN) 0822 (Given - Provider: Jennifer Montes RN)1339 (Self Administered Via Pump - Provider: Jennifer Montes RN)2127 (Given - Provider: Maeve Ryan RN) 0801 (Given - Provider: Phillip Dee, CHARLEY)1400 (Canceled Entry - Provider: Automatic Discharge Provider [...] times daily, First dose on Tue09/20/23 at 2099 2121 (Given - Provider: Maeve Ryan RN) 0822 (Given - Provider: Jennifer Montes RN)1340 (Self Administered Via Pump - Provider: Jennifer Montes RN) busPIRone (Buspar) tablet 15 mg 15 mg, Oral, 2 times daily, First dose (after last modification) on Tue09/21/23 at 2099 2126 (Given - Provider: Maeve Ryan RN) 0759 (Given - Provider: Phillip Dee, CHARLEY) calcitonin (Miacalcin) injection 50 Units 50 Units, IntraMUSCular, Daily, First dose on Tue09/20/23 at 0900 1400 (Not Given - Provider: Deanna Vaughan RN - Reason: Medication not available) 1217 (Given - Provider: Jennifer Montes RN) 1223 (Given - Provider: Phillip Dee, RN) cholecalciferol (Vitamin D-3) tablet 1,000 Units 1,000 Units, Oral, Daily, First dose on Tue09/22/23 at 0900 0833 (Given - Provider: Phillip Dee RN) clonazePAM (KlonoPIN) tablet 0.5 mg (CANCELED) 0.5 [...] Montes RN) 0803 (Given - Provider: Phillip Dee RN) gabapentin (Neurontin) capsule 600 mg (CANCELED) 600 mg, Oral, Nightly, First dose on Tue09/20/23 at 0000 0013 (Given - Provider: Suzette Davis RN) melatonin tablet 3 mg 3 mg, Oral, Nightly, First dose (after last modification) on Tue09/21/23 at 2099 2126 (Given - Provider: Maeve Ryan RN) mirtazapine (Remeron) tablet 15 mg 15 mg, Oral, Nightly, First dose on Tue09/20/23 at 2099 2122 (Given - Provider: Maeve Ryan RN) 2126 (Given - Provider: Maeve Ryan RN) mometasone-formoterol (Dulera 200) 200-5 MCG/ACT inhaler [...] Medication not available)2124 (Given - Provider: Maeve Ryan, CHARLEY) 0832 (Given - Provider: Jennifer Montes RN)2130 (Given - Provider: Maeve Ryan RN) 08 (Given - Provider: Phillip Dee, CHARLEY) montelukast (Singulair) tablet 10 mg 10 mg, Oral, Nightly, First dose on Tue09/20/23 at 0000 0013 (Given - Provider: Suzette Davis, CHARLEY)2121 (Given - Provider: Maeve Ryan, CHARLEY) 2126 [...] at 0900 0822 (Given - Provider: Jennifer Montes RN) 0802 (Given - Provider: Phillip Dee, CHARLEY) potassium chloride CR (Klor-Con M10) ER tablet 40 mEq (COMPLETED) 40 mEq, Oral, Once, On Tue09/20/23 at 0200, For 1 dose, Best given with food and plenty of water to minimize gastric irritation. Do not crush or chew. 0221 (Given - Provider: Suzette Davis, CHARLEY) potassium chloride CR (Klor-Con M10) ER tablet [...] mEq 0014 (New Bag - Provider: Suzette Davis, CHARLEY)0114 (Stopped - Provider: Suzette Davis RN) QUEtiapine (SEROquel) tablet 100 mg (CANCELED) 100 mg, Oral, Nightly, First dose on Tue09/20/23 at 0000 0014 (Given - Provider: Suzette Davis RN)2121 (Given - Provider: Maeve Ryan, CHARLEY) senna-docusate sodium (Senokot-S) 8.6-50 MG tablet 1 tablet 1 tablet, Oral, Nightly, First dose on Tue09/21/23 at 2100 2126 (Given - Provider: Maeve Ryan RN) tiotropium (Spiriva Respimat) 2.5 MCG/ACT inhaler 2 [...] at 1812 2122 (Given - Provider: Maeve Ryan, CHARLEY) naloxone (Narcan) injection 0.4 mg 0.4 mg, IntraVENous, Every 5 min PRN, opioid reversal, respiratory depression, Starting on Tue09/20/23 at 0753, +++ For RR <10, pinpoint pupils, over sedation for opioid reversal - MUST notify environmental services coordinator provider immediately after first dose, may give [...] before administering. 0741 (Given - Provider: Jennifer Montes RN) oxyCODONE (Roxicodone) immediate release tablet 5 mg 5 mg, Oral, Every 6 hours PRN, moderate pain (4-6), severe pain (7-10), Starting on Tue09/20/23 at 0749 1043 (Given - Provider: Deanna Patch, RN)1729 (Given - Provider: Deanna Vaughan RN) 0434 (Given - Provider: Maeve Ryan, CHARLEY)1014 (Given - Provider: Jennifer Montes, CHARLEY)1748 (Given - Provider: Jennifer Montes, RN) perflutren [...] (Medication Linda lied - Provider: Ray Isaac RN)794 (Due: Medication Removed - Provider: Automatic Discharge [...] LPN) 1999 (Given - Provider: Jennifer Hartley, CHARLEY) buPROPion XL (Wellbutrin XL) 24 hr tablet 150 mg 150 mg, Oral, Daily, First dose on Tue05/21/22 at 0800, Do not crush, chew, or split. 1043 (Given - Provider: Nicole Swift, CHARLEY) 0942 (Given - Provider: Nicole Swift, CHARLEY) 0748 (Given - Provider: Patsy Wynn RN) clonazePAM (KlonoPIN) tablet 0.5 mg 0.5 mg, Oral, Nightly, First dose on Tue05/21/22 at 2100 2127 (Given - Provider: Rocio Chaves LPN) 1999 (Given - Provider: Jennifer Hartley RN) enoxaparin (Lovenox) syringe 40 mg 40 mg, SubCUTAneous, Every 24 hours scheduled (Daily), First dose on Tue05/23/22 at 1800, Indication of Use: Prophylaxis-DVT/PE, Indications: Prophylaxis of Venous Thromboembolism 1999 (Given - Provider: Jennifer Hartley RN) 0754 (Given - Provider: Patsy Wynn, RN) fluticasone (Flonase) nasal spray 2 spray 2 spray, Each Nostril, Daily, First dose on Tue05/21/22 at 0900, Shake gently. Before first use, prime pump (press 6 times until fine spray appears). After use, clean tip and replace cap. 0900 (Not Given - Provider: Nicole Swift RN - Reason: Patient/family refused) 0942 (Given - Provider: Nicole Swift RN) 0749 (Given - Provider: Patsy Wynn, RN) gabapentin (Neurontin) tablet 600 mg 600 mg, Oral, Daily, First dose on Tue05/21/22 at 0900 1043 (Given - Provider: Nicole Swift RN) 0942 (Given - Provider: Nicole Swift RN) 0753 (Given - Provider: Patsy Wynn RN) ipratropium-albuterol (Duo-Neb) 0.5-2.5 mg/3 mL nebulizer [...] at 2100 2127 (Given - Provider: Rocio M Raabe, COMPUTER VIDEO GAME DESIGNER) 2000 (Given - Provider: Jennifer Hartley RN) sertraline (Zoloft) tablet 200 mg 200 mg, Oral, Daily, First dose on Tue05/21/22 at 0800 1043 (Given - Provider: Nicole Swift RN) 0942 (Given - Provider: Nicole Swift RN) 0748 (Given - Provider: Patsy Wynn, RN) sodium chloride 0.9% (NS) flush 5-40 [...] Hartley RN)1730 (Canceled Entry - Provider: Patsy Wynn RN) PRN Medication Order 05/22/2022 05/23/2022 05/24/2022 acetaminophen [...] Jennifer Hartley RN)1219 (Given - Provider: Nicole Swift, RN)1841 (Given - Provider: Nicole Swift RN) [...] CHARLEY)2024 (Given - Provider: Waldemar Holbrook, RN) 09 (Given - Provider: Lizett Rizvi, CHARLEY)2038 (Given - Provider: Sadie Rodriguez RN) 101 (Given - Provider: Gabriela Rosa, CHARLEY) albuterol (2.5 MG/3ML) 0.083% nebulizer solution 2.5 mg 2.5 mg, Nebulization, 2 times daily, First dose on Tue08/04/24 at 0800, Initiate RT Bronchodilator Protocol? Yes 910 (Given - Provider: Phillip Snyder RCP)2028 (Given - Provider: Pallavi Chairez RCP) 0838 (Given - Provider: DICK GuyP)2026 (Given - Provider: Luz Pruett, DIRECTOR OF INDIVIDUAL GIVING) 0859 (Given - Provider: Kimber Alvarado LEATHER WHITENER) aspirin EC tablet 81 mg 81 mg, Oral, Daily, First dose on Tue07/31/24 at 0900, Do not crush, chew, or split. 0841 (Given - Provider: Neelam Badillo, CHARLEY) 0900 (Given - Provider: Lizett Rizvi, CHARLEY) 0829 (Given - Provider: Gabriela Rosa, CHARLEY) buPROPion XL (Wellbutrin XL) 24 hr tablet 150 mg 150 mg, Oral, Daily, First dose on Tue07/31/24 at 0800, Do not crush, chew, or split. 0841 (Given - Provider: Neelam Badillo RN) 0900 (Given - Provider: Lizett Rizvi RN) 0829 (Given - Provider: Gabriela Rosa, CHARLEY) busPIRone (Buspar) tablet 15 mg 15 mg, Oral, 2 times daily, First dose on Tue07/30/24 at 2310 0842 (Given - Provider: Neelam Badillo RN)2026 (Given - Provider: Waldemar Holbrook RN) 0900 (Given - Provider: Lizett Rizvi RN)2239 (Given - Provider: Sadie Rodriguez, CHARLEY) 0829 (Given - Provider: Gabriela Rosa, CHARLEY) calcitonin (Miacalcin) injection 50 Units 50 Units, IntraMUSCular, Daily, First dose on Tue07/31/24 at 0900 0839 (Given - Provider: Neelam Badillo RN) 0910 (Given - Provider: Lizett Rizvi RN) 1046 (Given - Provider: Gabriela Rosa, CHARLEY) cefepime (Maxipime) 2,000 mg in sodium chloride [...] Lizett Rizvi RN)1312 (Stopped - Provider: Lizett Rizvi, CHARLEY)1612 (New Bag - Provider: Lizett Rizvi, CHARLEY)2031 (Stopped - Provider: Sadie Rodriguez RN) 0019 (New Bag - Provider: Sadie Rodriguez RN)0410 (Stopped - Provider: Sadie Rodriguez RN)0834 (New Bag - Provider: Gabriela Rosa RN)1239 (Stopped - Provider: Gabriela Rosa RN) cetirizine (ZyrTEC) tablet 5 mg 5 mg, Oral, Daily, First dose on Tue08/01/24 at 1815 0842 (Given - Provider: Neelam Badillo RN) 0859 (Given - Provider: Lizett Rizvi RN) 0828 (Given - Provider: Gabriela Rosa RN) enoxaparin (Lovenox) syringe 30 mg 30 mg, SubCUTAneous, Every 24 hours scheduled (Daily), First dose on Tue07/31/24 at 0900, Indication of Use: Prophylaxis-DVT/PE, Indications: Prophylaxis of Venous Thromboembolism 0840 (Given - Provider: Neelam Badillo RN) 0900 (Given - Provider: Lizett Rizvi RN) 0828 (Given - Provider: Gabriela Rosa RN) fluticasone (Flonase) nasal spray 2 spray 2 [...] 0829 (Given - Provider: Gabriela Rosa RN) folic acid 1 mg in dextrose 5 % 50 mL IVPB (COMPLETED) 1 mg, IntraVENous, at 100 mL/hr, Administer over 30 Minutes, Once, On Tue08/06/24 at 1500, For 1 dose 1507 (New Bag - Provider: Neelam Badillo RN)1620 (Stopped - Provider: Neelam Badillo RN) melatonin tablet 3 mg 3 mg, Oral, Nightly, First dose on Tue07/30/24 at 2310 2026 (Given - Provider: Waldemar Holbrook RN) 2039 (Given - Provider: Sadie Rodriguez, CHARLEY) mirtazapine (Remeron) tablet 15 mg 15 mg, Oral, Nightly, First dose on Tue07/30/24 at 2310 2025 (Given - Provider: Waldemar Holbrook RN) 2051 (Given - Provider: Sadie Rodriguez, CHARLEY) mometasone-formoterol (Dulera 200) 200-5 MCG/ACT inhaler 2 puff 2 puff, Inhalation, 2 times daily, First dose on Tue07/30/24 at 2310, Rinse mouth with water after use to reduce aftertaste and incidence of candidiasis. Do not swallow. 0839 (Given - Provider: Neelam Badillo RN)2022 (Given - Provider: Waldemar Holbrook RN) 0903 (Given - Provider: Lizett Rizvi RN)2037 (Given - Provider: Sadie Rodriguez RN) 0834 (Given - Provider: Gabriela Rosa RN) montelukast (Singulair) tablet 10 mg 10 mg, Oral, Nightly, First dose on Tue07/30/24 at 2310 2025 (Given - Provider: Waldemar Holbrook RN) 2051 (Given - Provider: Sadie Rodriguez RN) PARoxetine (Paxil) tablet 30 mg 30 mg, [...] Rizvi RN) 0828 (Given - Provider: Gabriela Rosa RN) predniSONE (Deltasone) tablet 20 mg (COMPLETED)(Linked [...] more times. 0839 (Given - Provider: Neelam Badillo RN) 0903 (Given - Provider: Lizett Rizvi RN) 0834 (Given - Provider: Gabriela Rosa RN) PRN Medication Order 08/06/2024 08/07/2024 08/08/2024 acetaminophen [...] Lizett Rizvi, RN)1743 (Given - Provider: Lizett Rizvi RN)2239 (Given - Provider: Sadie Rodriguez RN) 0829 (Given - Provider: Gabriela Rosa, RN)1342 (Given - Provider: Gabriela Rosa, RN) naloxone (Narcan) injection 0.4 mg 0.4 mg, IntraVENous, Every 5 min PRN, opioid reversal, respiratory depression, Starting on Tue07/30/24 at 2308, +++ For RR <10, pinpoint pupils, over sedation for opioid reversal - MUST notify environmental services coordinator provider immediately after first dose, may give [...] g, Oral, Daily PRN, constipation, Starting on 07/30/24 at 2312, 1st line for treatment of constipation - give scheduled if no bowel movement in past 24 hours. QUEtiapine (SEROquel) tablet 50 mg 50 mg, Oral, Nightly PRN, agitation, Anxiety and Sleep, Starting on Tue07/31/24 at 1007 2031 (Given - Provider: Waldemar Holbrook, RN) 2300 (Given - Provider: Sadie Rodriguez RN) sodium chloride ([place]) 0.65 % nasal spray 2 spray 2 [...] or prosecute any alcohol or drug abuse patient.[facility] Center[facility] the event this information is protected by the Federal Confidentiality of Alcohol and Drug Abuse Patient Records regulations: The Federal rules restrict any use of the information to criminally investigate or prosecute any alcohol or drug abuse patient.[facility] CenterIn the event this information is protected by the Federal Confidentiality of Alcohol and Drug Abuse Patient Records regulations: The Federal rules restrict any use of the information to criminally investigate or prosecute any alcohol or drug abuse patient.[facility] CenterIn the event this information is protected by the Federal Confidentiality of Alcohol and Drug Abuse Patient Records regulations: The Federal rules restrict any use of the information to criminally investigate or prosecute any alcohol or drug abuse patient.[facility] CenterIn the event this information is protected by the Federal Confidentiality of Alcohol and Drug Abuse Patient Records regulations: The Federal rules restrict any use of the information to criminally investigate or prosecute any alcohol or drug abuse patient.[facility] CenterIn the event this information is protected by the Federal Confidentiality of Alcohol and Drug Abuse Patient Records regulations: The Federal rules restrict any use of the information to criminally investigate or prosecute any alcohol or drug abuse patient.[facility] CenterIn the event this information is protected by the Federal Confidentiality of Alcohol and Drug Abuse Patient Records regulations: The Federal rules restrict any use of the information to criminally investigate or prosecute any alcohol or drug abuse patient.[facility] CenterIn the event this information is protected by the Federal Confidentiality of Alcohol and Drug Abuse Patient Records regulations: The Federal rules restrict any use of the information to criminally investigate or prosecute any alcohol or drug abuse patient.[facility] CenterIn the event this information is protected by the Federal Confidentiality of Alcohol and Drug Abuse Patient Records regulations: The Federal rules restrict any use of the information to criminally investigate or prosecute any alcohol or drug abuse patient.[facility] CenterIn the event this information is protected by the Federal Confidentiality of Alcohol and Drug Abuse Patient Records regulations: The Federal rules restrict any use of the information to criminally investigate or prosecute any alcohol or drug abuse patient.[facility] CenterIn the event this information is protected by the Federal Confidentiality of Alcohol and Drug Abuse Patient Records regulations: The Federal rules restrict any use of the information to criminally investigate or prosecute any alcohol or drug abuse patient.[facility] CenterIn the event this information is protected by the Federal Confidentiality of Alcohol and Drug Abuse Patient Records regulations: The Federal rules restrict any use of the information to criminally investigate or prosecute any alcohol or drug abuse patient.[facility] CenterIn the event this information is protected by the Federal Confidentiality of Alcohol and Drug Abuse Patient Records regulations: The Federal rules restrict any use of the information to criminally investigate or prosecute any alcohol or drug abuse patient.[facility] CenterIn the event this information is protected by the Federal Confidentiality of Alcohol and Drug Abuse Patient Records regulations: The Federal rules restrict any use of the information to criminally investigate or prosecute any alcohol or drug abuse patient.[facility] CenterIn the event this information is protected by the Federal Confidentiality of Alcohol and Drug Abuse Patient Records regulations: The Federal rules restrict any use of the information to criminally investigate or prosecute any alcohol or drug abuse patient.[facility] CenterIn the event this information is protected by the Federal Confidentiality of Alcohol and Drug Abuse Patient Records regulations: The Federal rules restrict any use of the information to criminally investigate or prosecute any alcohol or drug abuse patient.[facility] CenterIn the event this information is protected by the Federal Confidentiality of Alcohol and Drug Abuse Patient Records regulations: The Federal rules restrict any use of the information to criminally investigate or prosecute any alcohol or drug abuse patient.[facility] CenterIn the event this information is protected by the Federal Confidentiality of Alcohol and Drug Abuse Patient Records regulations: The Federal rules restrict any use of the information to criminally investigate or prosecute any alcohol or drug abuse patient.[facility]In the event this information is protected by the Federal Confidentiality of Alcohol and Drug Abuse Patient Records regulations: The Federal rules restrict any use of the information to criminally investigate or prosecute any alcohol or drug abuse patient.[facility] CenterIn the event this information is protected by the Federal Confidentiality of Alcohol and Drug Abuse Patient Records regulations: The Federal rules restrict any use of the information to criminally investigate or prosecute any alcohol or drug abuse patient.[facility] CenterIn the event this information is protected by the Federal Confidentiality of Alcohol and Drug Abuse Patient Records regulations: The Federal rules restrict any use of the information to criminally investigate or prosecute any alcohol or drug abuse patient.[facility] CenterIn the event this information is protected by the Federal Confidentiality of Alcohol and Drug Abuse Patient Records regulations: The Federal rules restrict any use of the information to criminally investigate or prosecute any alcohol or drug abuse patient.[facility] CenterIn the event this information is protected by the Federal Confidentiality of Alcohol and Drug Abuse Patient Records regulations: The Federal rules restrict any use of the information to criminally investigate or prosecute any alcohol or drug abuse patient.[facility] CenterIn the event this information is protected by the Federal Confidentiality of Alcohol and Drug Abuse Patient Records regulations: The Federal rules restrict any use of the information to criminally investigate or prosecute any alcohol or drug abuse patient.[facility] CenterIn the event this information is protected by the Federal Confidentiality of Alcohol and Drug Abuse Patient Records regulations: The Federal rules restrict any use of the information to criminally investigate or prosecute any alcohol or drug abuse patient.[facility] CenterIn the event this information is protected by the Federal Confidentiality of Alcohol and Drug Abuse Patient Records regulations: The Federal rules restrict any use of the information to criminally investigate or prosecute any alcohol or drug abuse patient.[facility] CenterIn the event this information is protected by the Federal Confidentiality of Alcohol and Drug Abuse Patient Records regulations: The Federal rules restrict any use of the information to criminally investigate or prosecute any alcohol or drug abuse patient.[facility] CenterIn the event this information is protected by the Federal Confidentiality of Alcohol and Drug Abuse Patient Records regulations: The Federal rules restrict any use of the information to criminally investigate or prosecute any alcohol or drug abuse patient.[facility] CenterIn the event this information is protected by the Federal Confidentiality of Alcohol and Drug Abuse Patient Records regulations: The Federal rules restrict any use of the information to criminally investigate or prosecute any alcohol or drug abuse patient.[facility] CenterIn the event this information is protected by the Federal Confidentiality of Alcohol and Drug Abuse Patient Records regulations: The Federal rules restrict any use of the information to criminally investigate or prosecute any alcohol or drug abuse patient.[facility] CenterIn the event this information is protected by the Federal Confidentiality of Alcohol and Drug Abuse Patient Records regulations: The Federal rules restrict any use of the information to criminally investigate or prosecute any alcohol or drug abuse patient.[facility] CenterIn the event this information is protected by the Federal Confidentiality of Alcohol and Drug Abuse Patient Records regulations: The Federal rules restrict any use of the information to criminally investigate or prosecute any alcohol or drug abuse patient.[facility] CenterIn the event this information is protected by the Federal Confidentiality of Alcohol and Drug Abuse Patient Records regulations: The Federal rules restrict any use of the information to criminally investigate or prosecute any alcohol or drug abuse patient.[facility] CenterIn the event this information is protected by the Federal Confidentiality of Alcohol and Drug Abuse Patient Records regulations: The Federal rules restrict any use of the information to criminally investigate or prosecute any alcohol or drug abuse patient.[facility] CenterIn the event this information is protected by the Federal Confidentiality of Alcohol and Drug Abuse Patient Records regulations: The Federal rules restrict any use of the information to criminally investigate or prosecute any alcohol or drug abuse patient.[facility] CenterIn the event this information is protected by the Federal Confidentiality of Alcohol and Drug Abuse Patient Records regulations: The Federal rules restrict any use of the information to criminally investigate or prosecute any alcohol or drug abuse patient.[facility] CenterIn the event this information is protected by the Federal Confidentiality of Alcohol and Drug Abuse Patient Records regulations: The Federal rules restrict any use of the information to criminally investigate or prosecute any alcohol or drug abuse patient.[facility] CenterIn the event this information is protected by the Federal Confidentiality of Alcohol and Drug Abuse Patient Records regulations: The Federal rules restrict any use of the information to criminally investigate or prosecute any alcohol or drug abuse patient.[facility] CenterIn the event this information is protected by the Federal Confidentiality of Alcohol and Drug Abuse Patient Records regulations: The Federal rules restrict any use of the information to criminally investigate or prosecute any alcohol or drug abuse patient.[facility] CenterIn the event this information is protected by the Federal Confidentiality of Alcohol and Drug Abuse Patient Records regulations: The Federal rules restrict any use of the information to criminally investigate or prosecute any alcohol or drug abuse patient.[facility] CenterIn the event this information is protected by the Federal Confidentiality of Alcohol and Drug Abuse Patient Records regulations: The Federal rules restrict any use of the information to criminally investigate or prosecute any alcohol or drug abuse patient.[facility] CenterIn the event this information is protected by the Federal Confidentiality of Alcohol and Drug Abuse Patient Records regulations: The Federal rules restrict any use of the information to criminally investigate or prosecute any alcohol or drug abuse patient.[facility] CenterIn the event this information is protected by the Federal Confidentiality of Alcohol and Drug Abuse Patient Records regulations: The Federal rules restrict any use of the information to criminally investigate or prosecute any alcohol or drug abuse patient.[facility] CenterIn the event this information is protected by the Federal Confidentiality of Alcohol and Drug Abuse Patient Records regulations: The Federal rules restrict any use of the information to criminally investigate or prosecute any alcohol or drug abuse patient.[facility] CenterIn the event this information is protected by the Federal Confidentiality of Alcohol and Drug Abuse Patient Records regulations: The Federal rules restrict any use of the information to criminally investigate or prosecute any alcohol or drug abuse patient.[facility] CenterIn the event this information is protected by the Federal Confidentiality of Alcohol and Drug Abuse Patient Records regulations: The Federal rules restrict any use of the information to criminally investigate or prosecute any alcohol or drug abuse patient.[facility] CenterIn the event this information is protected by the Federal Confidentiality of Alcohol and Drug Abuse Patient Records regulations: The Federal rules restrict any use of the information to criminally investigate or prosecute any alcohol or drug abuse patient.[facility] CenterIn the event this information is protected by the Federal Confidentiality of Alcohol and Drug Abuse Patient Records regulations: The Federal rules restrict any use of the information to criminally investigate or prosecute any alcohol or drug abuse patient.[facility] CenterIn the event this information is protected by the Federal Confidentiality of Alcohol and Drug Abuse Patient Records regulations: The Federal rules restrict any use of the information to criminally investigate or prosecute any alcohol or drug abuse patient.[facility] CenterIn the event this information is protected by the Federal Confidentiality of Alcohol and Drug Abuse Patient Records regulations: The Federal rules restrict any use of the information to criminally investigate or prosecute any alcohol or drug abuse patient.[facility] CenterIn the event this information is protected by the Federal Confidentiality of Alcohol and Drug Abuse Patient Records regulations: The Federal rules restrict any use of the information to criminally investigate or prosecute any alcohol or drug abuse patient.[facility] CenterIn the event this information is protected by the Federal Confidentiality of Alcohol and Drug Abuse Patient Records regulations: The Federal rules restrict any use of the information to criminally investigate or prosecute any alcohol or drug abuse patient.[facility] CenterIn the event this information is protected by the Federal Confidentiality of Alcohol and Drug Abuse Patient Records regulations: The Federal rules restrict any use of the information to criminally investigate or prosecute any alcohol or drug abuse patient.[facility] CenterIn the event this information is protected by the Federal Confidentiality of Alcohol and Drug Abuse Patient Records regulations: The Federal rules restrict any use of the information to criminally investigate or prosecute any alcohol or drug abuse patient.[facility] CenterIn the event this information is protected by the Federal Confidentiality of Alcohol and Drug Abuse Patient Records regulations: The Federal rules restrict any use of the information to criminally investigate or prosecute any alcohol or drug abuse patient.[facility]In the event this information is protected by the Federal Confidentiality of Alcohol and Drug Abuse Patient Records regulations: The Federal rules restrict any use of the information to criminally investigate or prosecute any alcohol or drug abuse patient.[facility] CenterIn the event this information is protected by the Federal Confidentiality of Alcohol and Drug Abuse Patient Records regulations: The Federal rules restrict any use of the information to criminally investigate or prosecute any alcohol or drug abuse patient.[facility] CenterIn the event this information is protected by the Federal Confidentiality of Alcohol and Drug Abuse Patient Records regulations: The Federal rules restrict any use of the information to criminally investigate or prosecute any alcohol or drug abuse patient.[facility] CenterIn the event this information is protected by the Federal Confidentiality of Alcohol and Drug Abuse Patient Records regulations: The Federal rules restrict any use of the information to criminally investigate or prosecute any alcohol or drug abuse patient.[facility] CenterIn the event this information is protected by the Federal Confidentiality of Alcohol and Drug Abuse Patient Records regulations: The Federal rules restrict any use of the information to criminally investigate or prosecute any alcohol or drug abuse patient.[facility]In the event this information is protected by the Federal Confidentiality of Alcohol and Drug Abuse Patient Records regulations: The Federal rules restrict any use of the information to criminally investigate or prosecute any alcohol or drug abuse patient.[facility] CenterIn the event this information is protected by the Federal Confidentiality of Alcohol and Drug Abuse Patient Records regulations: The Federal rules restrict any use of the information to criminally investigate or prosecute any alcohol or drug abuse patient.[facility] CenterIn the event this information is protected by the Federal Confidentiality of Alcohol and Drug Abuse Patient Records regulations: The Federal rules restrict any use of the information to criminally investigate or prosecute any alcohol or drug abuse patient.[facility] CenterIn the event this information is protected by the Federal Confidentiality of Alcohol and Drug Abuse Patient Records regulations: The Federal rules restrict any use of the information to criminally investigate or prosecute any alcohol or drug abuse patient.[facility] CenterIn the event this information is protected by the Federal Confidentiality of Alcohol and Drug Abuse Patient Records regulations: The Federal rules restrict any use of the information to criminally investigate or prosecute any alcohol or drug abuse patient.[facility] CenterIn the event this information is protected by the Federal Confidentiality of Alcohol and Drug Abuse Patient Records regulations: The Federal rules restrict any use of the information to criminally investigate or prosecute any alcohol or drug abuse patient.[facility] CenterIn the event this information is protected by the Federal Confidentiality of Alcohol and Drug Abuse Patient Records regulations: The Federal rules restrict any use of the information to criminally investigate or prosecute any alcohol or drug abuse patient.[facility] CenterIn the event this information is protected by the Federal Confidentiality of Alcohol and Drug Abuse Patient Records regulations: The Federal rules restrict any use of the information to criminally investigate or prosecute any alcohol or drug abuse patient.[facility] CenterIn the event this information is protected by the Federal Confidentiality of Alcohol and Drug Abuse Patient Records regulations: The Federal rules restrict any use of the information to criminally investigate or prosecute any alcohol or drug abuse patient.[facility]In the event this information is protected by the Federal Confidentiality of Alcohol and Drug Abuse Patient Records regulations: The Federal rules restrict any use of the information to criminally investigate or prosecute any alcohol or drug abuse patient.[facility]In the event this information is protected by the Federal Confidentiality of Alcohol and Drug Abuse Patient Records regulations: The Federal rules restrict any use of the information to criminally investigate or prosecute any alcohol or drug abuse patient.[facility] CenterIn the event this information is protected by the Federal Confidentiality of Alcohol and Drug Abuse Patient Records regulations: The Federal rules restrict any use of the information to criminally investigate or prosecute any alcohol or drug abuse patient.[facility]In the event this information is protected by the Federal Confidentiality of Alcohol and Drug Abuse Patient Records regulations: The Federal rules restrict any use of the information to criminally investigate or prosecute any alcohol or drug abuse patient.[facility]In the event this information is protected by the Federal Confidentiality of Alcohol and Drug Abuse Patient Records regulations: The Federal rules restrict any use of the information to criminally investigate or prosecute any alcohol or drug abuse patient.[facility]In the event this information is protected by the Federal Confidentiality of Alcohol and Drug Abuse Patient Records regulations: The Federal rules restrict any use of the information to criminally investigate or prosecute any alcohol or drug abuse patient.[facility]In the event this information is protected by the Federal Confidentiality of Alcohol and Drug Abuse Patient Records regulations: The Federal rules restrict any use of the information to criminally investigate or prosecute any alcohol or drug abuse patient.[facility] CenterIn the event this information is protected by the Federal Confidentiality of Alcohol and Drug Abuse Patient Records regulations: The Federal rules restrict any use of the information to criminally investigate or prosecute any alcohol or drug abuse patient.[facility] CenterIn the event this information is protected by the Federal Confidentiality of Alcohol and Drug Abuse Patient Records regulations: The Federal rules restrict any use of the information to criminally investigate or prosecute any alcohol or drug abuse patient.[facility] CenterIn the event this information is protected by the Federal Confidentiality of Alcohol and Drug Abuse Patient Records regulations: The Federal rules restrict any use of the information to criminally investigate or prosecute any alcohol or drug abuse patient.[facility] CenterIn the event this information is protected by the Federal Confidentiality of Alcohol and Drug Abuse Patient Records regulations: The Federal rules restrict any use of the information to criminally investigate or prosecute any alcohol or drug abuse patient.[facility] CenterIn the event this information is protected by the Federal Confidentiality of Alcohol and Drug Abuse Patient Records regulations: The Federal rules restrict any use of the information to criminally investigate or prosecute any alcohol or drug abuse patient.[facility] CenterIn the event this information is protected by the Federal Confidentiality of Alcohol and Drug Abuse Patient Records regulations: The Federal rules restrict any use of the information to criminally investigate or prosecute any alcohol or drug abuse patient.[facility]In the event this information is protected by the Federal Confidentiality of Alcohol and Drug Abuse Patient Records regulations: The Federal rules restrict any use of the information to criminally investigate or prosecute any alcohol or drug abuse patient.[facility] CenterIn the event this information is protected by the Federal Confidentiality of Alcohol and Drug Abuse Patient Records regulations: The Federal rules restrict any use of the information to criminally investigate or prosecute any alcohol or drug abuse patient.[facility] CenterIn the event this information is protected by the Federal Confidentiality of Alcohol and Drug Abuse Patient Records regulations: The Federal rules restrict any use of the information to criminally investigate or prosecute any alcohol or drug abuse patient.[facility]In the event this information is protected by the Federal Confidentiality of Alcohol and Drug Abuse Patient Records regulations: The Federal rules restrict any use of the information to criminally investigate or prosecute any alcohol or drug abuse patient.[facility]In the event this information is protected by the Federal Confidentiality of Alcohol and Drug Abuse Patient Records regulations: The Federal rules restrict any use of the information to criminally investigate or prosecute any alcohol or drug abuse patient.[facility]In the event this information is protected by the Federal Confidentiality of Alcohol and Drug Abuse Patient Records regulations: The Federal rules restrict any use of the information to criminally investigate or prosecute any alcohol or drug abuse patient.[facility]In the event this information is protected by the Federal Confidentiality of Alcohol and Drug Abuse Patient Records regulations: The Federal rules restrict any use of the information to criminally investigate or prosecute any alcohol or drug abuse patient.[facility]In the event this information is protected by the Federal Confidentiality of Alcohol and Drug Abuse Patient Records regulations: The Federal rules restrict any use of the information to criminally investigate or prosecute any alcohol or drug abuse patient.[facility] CenterIn the event this information is protected by the Federal Confidentiality of Alcohol and Drug Abuse Patient Records regulations: The Federal rules restrict any use of the information to criminally investigate or prosecute any alcohol or drug abuse patient.[facility] CenterIn the event this information is protected by the Federal Confidentiality of Alcohol and Drug Abuse Patient Records regulations: The Federal rules restrict any use of the information to criminally investigate or prosecute any alcohol or drug abuse patient.[facility] CenterIn the event this information is protected by the Federal Confidentiality of Alcohol and Drug Abuse Patient Records regulations: The Federal rules restrict any use of the information to criminally investigate or prosecute any alcohol or drug abuse patient.[facility] CenterIn the event this information is protected by the Federal Confidentiality of Alcohol and Drug Abuse Patient Records regulations: The Federal rules restrict any use of the information to criminally investigate or prosecute any alcohol or drug abuse patient.[facility] CenterIn the event this information is protected by the Federal Confidentiality of Alcohol and Drug Abuse Patient Records regulations: The Federal rules restrict any use of the information to criminally investigate or prosecute any alcohol or drug abuse patient.[facility] CenterIn the event this information is protected by the Federal Confidentiality of Alcohol and Drug Abuse Patient Records regulations: The Federal rules restrict any use of the information to criminally investigate or prosecute any alcohol or drug abuse patient.[facility] CenterIn the event this information is protected by the Federal Confidentiality of Alcohol and Drug Abuse Patient Records regulations: The Federal rules restrict any use of the information to criminally investigate or prosecute any alcohol or drug abuse patient.[facility] CenterIn the event this information is protected by the Federal Confidentiality of Alcohol and Drug Abuse Patient Records regulations: The Federal rules restrict any use of the information to criminally investigate or prosecute any alcohol or drug abuse patient.[facility] CenterIn the event this information is protected by the Federal Confidentiality of Alcohol and Drug Abuse Patient Records regulations: The Federal rules restrict any use of the information to criminally investigate or prosecute any alcohol or drug abuse patient.[facility] CenterIn the event this information is protected by the Federal Confidentiality of Alcohol and Drug Abuse Patient Records regulations: The Federal rules restrict any use of the information to criminally investigate or prosecute any alcohol or drug abuse patient.[facility] CenterIn the event this information is protected by the Federal Confidentiality of Alcohol and Drug Abuse Patient Records regulations: The Federal rules restrict any use of the information to criminally investigate or prosecute any alcohol or drug abuse patient.[facility] CenterIn the event this information is protected by the Federal Confidentiality of Alcohol and Drug Abuse Patient Records regulations: The Federal rules restrict any use of the information to criminally investigate or prosecute any alcohol or drug abuse patient.[facility] CenterIn the event this information is protected by the Federal Confidentiality of Alcohol and Drug Abuse Patient Records regulations: The Federal rules restrict any use of the information to criminally investigate or prosecute any alcohol or drug abuse patient.[facility] CenterIn the event this information is protected by the Federal Confidentiality of Alcohol and Drug Abuse Patient Records regulations: The Federal rules restrict any use of the information to criminally investigate or prosecute any alcohol or drug abuse patient.[facility] CenterIn the event this information is protected by the Federal Confidentiality of Alcohol and Drug Abuse Patient Records regulations: The Federal rules restrict any use of the information to criminally investigate or prosecute any alcohol or drug abuse patient.[facility] CenterIn the event this information is protected by the Federal Confidentiality of Alcohol and Drug Abuse Patient Records regulations: The Federal rules restrict any use of the information to criminally investigate or prosecute any alcohol or drug abuse patient.[facility] CenterIn the event this information is protected by the Federal Confidentiality of Alcohol and Drug Abuse Patient Records regulations: The Federal rules restrict any use of the information to criminally investigate or prosecute any alcohol or drug abuse patient.[facility] CenterIn the event this information is protected by the Federal Confidentiality of Alcohol and Drug Abuse Patient Records regulations: The Federal rules restrict any use of the information to criminally investigate or prosecute any alcohol or drug abuse patient.[facility] CenterIn the event this information is protected by the Federal Confidentiality of Alcohol and Drug Abuse Patient Records regulations: The Federal rules restrict any use of the information to criminally investigate or prosecute any alcohol or drug abuse patient.[facility] CenterIn the event this information is protected by the Federal Confidentiality of Alcohol and Drug Abuse Patient Records regulations: The Federal rules restrict any use of the information to criminally investigate or prosecute any alcohol or drug abuse patient.[facility] CenterIn the event this information is protected by the Federal Confidentiality of Alcohol and Drug Abuse Patient Records regulations: The Federal rules restrict any use of the information to criminally investigate or prosecute any alcohol or drug abuse patient.[facility] CenterIn the event this information is protected by the Federal Confidentiality of Alcohol and Drug Abuse Patient Records regulations: The Federal rules restrict any use of the information to criminally investigate or prosecute any alcohol or drug abuse patient.[facility] CenterIn the event this information is protected by the Federal Confidentiality of Alcohol and Drug Abuse Patient Records regulations: The Federal rules restrict any use of the information to criminally investigate or prosecute any alcohol or drug abuse patient.[facility] CenterIn the event this information is protected by the Federal Confidentiality of Alcohol and Drug Abuse Patient Records regulations: The Federal rules restrict any use of the information to criminally investigate or prosecute any alcohol or drug abuse patient.[facility] CenterIn the event this information is protected by the Federal Confidentiality of Alcohol and Drug Abuse Patient Records regulations: The Federal rules restrict any use of the information to criminally investigate or prosecute any alcohol or drug abuse patient.[facility] CenterIn the event this information is protected by the Federal Confidentiality of Alcohol and Drug Abuse Patient Records regulations: The Federal rules restrict any use of the information to criminally investigate or prosecute any alcohol or drug abuse patient.[facility] CenterIn the event this information is protected by the Federal Confidentiality of Alcohol and Drug Abuse Patient Records regulations: The Federal rules restrict any use of the information to criminally investigate or prosecute any alcohol or drug abuse patient.[facility] CenterIn the event this information is protected by the Federal Confidentiality of Alcohol and Drug Abuse Patient Records regulations: The Federal rules restrict any use of the information to criminally investigate or prosecute any alcohol or drug abuse patient.[facility] CenterIn the event this information is protected by the Federal Confidentiality of Alcohol and Drug Abuse Patient Records regulations: The Federal rules restrict any use of the information to criminally investigate or prosecute any alcohol or drug abuse patient.[facility] CenterIn the event this information is protected by the Federal Confidentiality of Alcohol and Drug Abuse Patient Records regulations: The Federal rules restrict any use of the information to criminally investigate or prosecute any alcohol or drug abuse patient.[facility] CenterIn the event this information is protected by the Federal Confidentiality of Alcohol and Drug Abuse Patient Records regulations: The Federal rules restrict any use of the information to criminally investigate or prosecute any alcohol or drug abuse patient.[facility] CenterIn the event this information is protected by the Federal Confidentiality of Alcohol and Drug Abuse Patient Records regulations: The Federal rules restrict any use of the information to criminally investigate or prosecute any alcohol or drug abuse patient.[facility] CenterIn the event this information is protected by the Federal Confidentiality of Alcohol and Drug Abuse Patient Records regulations: The Federal rules restrict any use of the information to criminally investigate or prosecute any alcohol or drug abuse patient.[facility] CenterIn the event this information is protected by the Federal Confidentiality of Alcohol and Drug Abuse Patient Records regulations: The Federal rules restrict any use of the information to criminally investigate or prosecute any alcohol or drug abuse patient.[facility] CenterIn the event this information is protected by the Federal Confidentiality of Alcohol and Drug Abuse Patient Records regulations: The Federal rules restrict any use of the information to criminally investigate or prosecute any alcohol or drug abuse patient.[facility] CenterIn the event this information is protected by the Federal Confidentiality of Alcohol and Drug Abuse Patient Records regulations: The Federal rules restrict any use of the information to criminally investigate or prosecute any alcohol or drug abuse patient.[facility] CenterIn the event this information is protected by the Federal Confidentiality of Alcohol and Drug Abuse Patient Records regulations: The Federal rules restrict any use of the information to criminally investigate or prosecute any alcohol or drug abuse patient.[facility] CenterIn the event this information is protected by the Federal Confidentiality of Alcohol and Drug Abuse Patient Records regulations: The Federal rules restrict any use of the information to criminally investigate or prosecute any alcohol or drug abuse patient.[facility] CenterIn the event this information is protected by the Federal Confidentiality of Alcohol and Drug Abuse Patient Records regulations: The Federal rules restrict any use of the information to criminally investigate or prosecute any alcohol or drug abuse patient.[facility] CenterIn the event this information is protected by the Federal Confidentiality of Alcohol and Drug Abuse Patient Records regulations: The Federal rules restrict any use of the information to criminally investigate or prosecute any alcohol or drug abuse patient.[facility] CenterIn the event this information is protected by the Federal Confidentiality of Alcohol and Drug Abuse Patient Records regulations: The Federal rules restrict any use of the information to criminally investigate or prosecute any alcohol or drug abuse patient.[facility] CenterIn the event this information is protected by the Federal Confidentiality of Alcohol and Drug Abuse Patient Records regulations: The Federal rules restrict any use of the information to criminally investigate or prosecute any alcohol or drug abuse patient.[facility] CenterIn the event this information is protected by the Federal Confidentiality of Alcohol and Drug Abuse Patient Records regulations: The Federal rules restrict any use of the information to criminally investigate or prosecute any alcohol or drug abuse patient.[facility] CenterIn the event this information is protected by the Federal Confidentiality of Alcohol and Drug Abuse Patient Records regulations: The Federal rules restrict any use of the information to criminally investigate or prosecute any alcohol or drug abuse patient.[facility] CenterIn the event this information is protected by the Federal Confidentiality of Alcohol and Drug Abuse Patient Records regulations: The Federal rules restrict any use of the information to criminally investigate or prosecute any alcohol or drug abuse patient.[facility] CenterIn the event this information is protected by the Federal Confidentiality of Alcohol and Drug Abuse Patient Records regulations: The Federal rules restrict any use of the information to criminally investigate or prosecute any alcohol or drug abuse patient.[facility] CenterIn the event this information is protected by the Federal Confidentiality of Alcohol and Drug Abuse Patient Records regulations: The Federal rules restrict any use of the information to criminally investigate or prosecute any alcohol or drug abuse patient.[facility] CenterIn the event this information is protected by the Federal Confidentiality of Alcohol and Drug Abuse Patient Records regulations: The Federal rules restrict any use of the information to criminally investigate or prosecute any alcohol or drug abuse patient.[facility] CenterIn the event this information is protected by the Federal Confidentiality of Alcohol and Drug Abuse Patient Records regulations: The Federal rules restrict any use of the information to criminally investigate or prosecute any alcohol or drug abuse patient.[facility] CenterIn the event this information is protected by the Federal Confidentiality of Alcohol and Drug Abuse Patient Records regulations: The Federal rules restrict any use of the information to criminally investigate or prosecute any alcohol or drug abuse patient.[facility] CenterIn the event this information is protected by the Federal Confidentiality of Alcohol and Drug Abuse Patient Records regulations: The Federal rules restrict any use of the information to criminally investigate or prosecute any alcohol or drug abuse patient.[facility] CenterIn the event this information is protected by the Federal Confidentiality of Alcohol and Drug Abuse Patient Records regulations: The Federal rules restrict any use of the information to criminally investigate or prosecute any alcohol or drug abuse patient.[facility] CenterIn the event this information is protected by the Federal Confidentiality of Alcohol and Drug Abuse Patient Records regulations: The Federal rules restrict any use of the information to criminally investigate or prosecute any alcohol or drug abuse patient.[facility] CenterIn the event this information is protected by the Federal Confidentiality of Alcohol and Drug Abuse Patient Records regulations: The Federal rules restrict any use of the information to criminally investigate or prosecute any alcohol or drug abuse patient.[facility] CenterIn the event this information is protected by the Federal Confidentiality of Alcohol and Drug Abuse Patient Records regulations: The Federal rules restrict any use of the information to criminally investigate or prosecute any alcohol or drug abuse patient.[facility] CenterIn the event this information is protected by the Federal Confidentiality of Alcohol and Drug Abuse Patient Records regulations: The Federal rules restrict any use of the information to criminally investigate or prosecute any alcohol or drug abuse patient.[facility] CenterIn the event this information is protected by the Federal Confidentiality of Alcohol and Drug Abuse Patient Records regulations: The Federal rules restrict any use of the information to criminally investigate or prosecute any alcohol or drug abuse patient.[facility] CenterIn the event this information is protected by the Federal Confidentiality of Alcohol and Drug Abuse Patient Records regulations: The Federal rules restrict any use of the information to criminally investigate or prosecute any alcohol or drug abuse patient.[facility] CenterIn the event this information is protected by the Federal Confidentiality of Alcohol and Drug Abuse Patient Records regulations: The Federal rules restrict any use of the information to criminally investigate or prosecute any alcohol or drug abuse patient.[facility] CenterIn the event this information is protected by the Federal Confidentiality of Alcohol and Drug Abuse Patient Records regulations: The Federal rules restrict any use of the information to criminally investigate or prosecute any alcohol or drug abuse patient.[facility] CenterIn the event this information is protected by the Federal Confidentiality of Alcohol and Drug Abuse Patient Records regulations: The Federal rules restrict any use of the information to criminally investigate or prosecute any alcohol or drug abuse patient.[facility] CenterIn the event this information is protected by the Federal Confidentiality of Alcohol and Drug Abuse Patient Records regulations: The Federal rules restrict any use of the information to criminally investigate or prosecute any alcohol or drug abuse patient.[facility] CenterIn the event this information is protected by the Federal Confidentiality of Alcohol and Drug Abuse Patient Records regulations: The Federal rules restrict any use of the information to criminally investigate or prosecute any alcohol or drug abuse patient.[facility] CenterIn the event this information is protected by the Federal Confidentiality of Alcohol and Drug Abuse Patient Records regulations: The Federal rules restrict any use of the information to criminally investigate or prosecute any alcohol or drug abuse patient.[facility] CenterIn the event this information is protected by the Federal Confidentiality of Alcohol and Drug Abuse Patient Records regulations: The Federal rules restrict any use of the information to criminally investigate or prosecute any alcohol or drug abuse patient.[facility] CenterIn the event this information is protected by the Federal Confidentiality of Alcohol and Drug Abuse Patient Records regulations: The Federal rules restrict any use of the information to criminally investigate or prosecute any alcohol or drug abuse patient.[facility] CenterIn the event this information is protected by the Federal Confidentiality of Alcohol and Drug Abuse Patient Records regulations: The Federal rules restrict any use of the information to criminally investigate or prosecute any alcohol or drug abuse patient.[facility] CenterIn the event this information is protected by the Federal Confidentiality of Alcohol and Drug Abuse Patient Records regulations: The Federal rules restrict any use of the information to criminally investigate or prosecute any alcohol or drug abuse patient.[facility] CenterIn the event this information is protected by the Federal Confidentiality of Alcohol and Drug Abuse Patient Records regulations: The Federal rules restrict any use of the information to criminally investigate or prosecute any alcohol or drug abuse patient.[facility] CenterIn the event this information is protected by the Federal Confidentiality of Alcohol and Drug Abuse Patient Records regulations: The Federal rules restrict any use of the information to criminally investigate or prosecute any alcohol or drug abuse patient.[facility] Care Teams (unrecognized sec tion and content) Door Closer Relationship Specialty Start Date End Date Herminia Case MD [address] [place] [address] PCP - General Family Practice 12/12/18 Door Closer Relationship Specialty Start Date End Date Herminia Case MD [address] [place] [address] PCP - General Family Practice 12/12/18 Door Closer Relationship Specialty Start Date End Date Herminia Case MD [address] [place] [address] PCP - General Family Practice 12/12/18 Door Closer Relationship Specialty Start Date End Date Herminia Case MD [address] [place] [address] PCP - General Family Practice 12/12/18 Door Closer Relationship Specialty Start Date End Date Herminia Case MD [address] [place] [address] PCP - General Family Practice 12/12/18 Door Closer Relationship Specialty Start Date End Date Herminia Case MD PCP - General 04/15/15 Door Closer Relationship Specialty Start Date End Date Herminia Case MD PCP - General 04/15/15 Door Closer Relationship Specialty Start Date End Date Herminia Case MD [address] [place] [address] PCP - General Family Practice 12/12/18 Door Closer Relationship Specialty Start Date End Date Herminia Case MD [address] [place] [address] PCP - General Family Practice 12/12/18 Door Closer Relationship Specialty Start Date End Date Herminia Case MD [address] [place] [address] PCP - General Family Practice 12/12/18 Door Closer Relationship Specialty Start Date End Date Herminia Case MD [address] [place] [address] PCP - General Family Practice 12/12/18 Door Closer Relationship Specialty Start Date End Date Herminia Case MD [address] [place] [address] PCP - General Family Medicine 12/12/18 Door Closer Relationship Specialty Start Date End Date Herminia Case MD [address] [place] [address] PCP - General Family Medicine 12/12/18 Door Closer Relationship Specialty Start Date End Date Herminia Case MD [address] [place] [address] PCP - General Family Medicine 12/12/18 Door Closer Relationship Specialty Start Date End Date Herminia Case MD [address] [place] [address] PCP - General Family Medicine 12/12/18 Door Closer Relationship Specialty Start Date End Date Herminia Case MD [address] [place] [address] PCP - General Family Medicine 12/12/18 Door Closer Relationship Specialty Start Date End Date Herminia Case MD [address] [place] [address] PCP - General Family Medicine 12/12/18 Door Closer Relationship Specialty Start Date End Date Herminia Case MD [address] [place] [address] PCP - General Family Medicine 12/12/18 Door Closer Relationship Specialty Start Date End Date Herminia Case MD [address] [place] [address] PCP - General Family Medicine 12/12/18 Door Closer Relationship Specialty Start Date End Date Herminia Case MD [address] [place] [address] PCP - General Family Medicine 12/12/18 Door Closer Relationship Specialty Start Date End Date Herminia Case MD [address] [place] [address] PCP - General Family Medicine 12/12/18 Door Closer Relationship Specialty Start Date End Date Herminia Case MD [address] [place] [address] PCP - General Family Medicine 12/12/18 Door Closer Relationship Specialty Start Date End Date Herminia Case MD [address] [place] [address] PCP - General Family Medicine 12/12/18 Door Closer Relationship Specialty Start Date End Date Herminia Case MD [address] [place] [address] PCP - General Family Medicine 12/12/18 Door Closer Relationship Specialty Start Date End Date Herminia Case MD [address] [place] [address] PCP - General Family Medicine 12/12/18 Door Closer Relationship Specialty Start Date End Date Herminia Case MD [address] [place] [address] PCP - General Family Medicine 12/12/18 Door Closer Relationship Specialty Start Date End Date Herminia Case MD [address] [place] [address] PCP - General Family Medicine 12/12/18 Door Closer Relationship Specialty Start Date End Date Herminia Case MD [address] [place] [address] PCP - General Family Medicine 12/12/18 Door Closer Relationship Specialty Start Date End Date Herminia Case MD [address] [place] [address] PCP - General Family Medicine 12/12/18 Door Closer Relationship Specialty Start Date End Date Herminia Case MD [address] [place] [address] PCP - General 04/15/15 Ziyad Menendez MD [address] [place] [address], [address] [place] [address] Consulting Physician Gynecologic Oncology 03/12/22 Sally Rocha APRN - [employer]ONG [employer]TER [address] [place] [address] [address] [place] [address] Nurse Practitioner Certified Nurse Practitioner 04/21/22 Kisha Pepe APRN - TONG [employer]TER [address] [place] [address] [address] [place] [address] Nurse Practitioner Nurse Practitioner 10/20/22 Door Closer Relationship Specialty Start Date End Date Herminia Case MD [address] [place] [address] PCP - General Family Medicine 12/12/18 Door Closer Relationship Specialty Start Date End Date Herminia Case MD [address] [place] [address] PCP - General Family Medicine 12/12/18 Door Closer Relationship Specialty Start Date End Date Herminia Case MD [address] [place] [address] PCP - General 04/15/15 Ziyad Menendez MD [address] [place] [address], [address] [place] [address] Consulting Physician Gynecologic Oncology 03/12/22 Sally Rocha APRN - [place] [address] [facility] [address] [place] [address] Nurse Practitioner Certified Nurse Practitioner 04/21/22 Kisha Pepe APRN - TONG SETTER 161 [facility] [address] [place] [address] Nurse Practitioner Nurse Practitioner 10/20/22 Door Closer Relationship Specialty Start Date End Date Herminia Case MD [address] [place] [address] PCP - General Family Medicine 12/12/18 Door Closer Relationship Specialty Start Date End Date Herminia Case MD [address] [place] [address] PCP - General 04/15/15 Ziyad Menendez MD 161 [facility], [address] [place] [address] Consulting Physician Gynecologic Oncology 03/12/22 Sally Rocha APRN - TONG SETTER [address] [address] Nurse Practitioner Certified Nurse Practitioner 04/21/22 Kisha Pepe APRN - TONG SETTER [address] [address] Nurse Practitioner Nurse Practitioner 10/20/22 Door Closer Relationship Specialty Start Date End Date Herminia Case MD [address] [place] [address] PCP - General Family Medicine 12/12/18 Door Closer Relationship Specialty Start Date End Date Herminia Case MD [address] [place] [address] PCP - General Family Medicine 12/12/18 Door Closer Relationship Specialty Start Date End Date Herminia Case MD [address] [place] [address] PCP - General Family Medicine 12/12/18 Door Closer Relationship Specialty Start Date End Date Herminia Case MD [address] [place] [address] PCP - General Family Medicine 12/12/18 Door Closer Relationship Specialty Start Date End Date Herminia Case MD [address] [place] [address] PCP - General Family Medicine 12/12/18 Door Closer Relationship Specialty Start Date End Date Herminia Case MD [address] [place] [address] PCP - General Family Medicine 12/12/18 Door Closer Relationship Specialty Start Date End Date Herminia Case MD [address] [place] [address] PCP - General Family Medicine 12/12/18 Door Closer Relationship Specialty Start Date End Date Herminia Case MD [address] [place] [address] PCP - General Family Medicine 12/12/18 Door Closer Relationship Specialty Start Date End Date Herminia Case MD [address] [place] [address] PCP - General Family Medicine 12/12/18 Door Closer Relationship Specialty Start Date End Date Herminia Case MD [address] [place] [address] PCP - General Family Medicine 12/12/18 Door Closer Relationship Specialty Start Date End Date Herminia Case MD [address] [place] [address] PCP - General Family Medicine 12/12/18 Door Closer Relationship Specialty Start Date End Date Herminia Case MD [address] [place] [address] PCP - General 04/15/15 Ziyad Menendez MD 161 [facility] [address] [place] [address] Consulting Physician Gynecologic Oncology 03/12/22 Sally Rocha 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 - TONG SETTER 161 [facility] [address] [place] [address] Nurse Practitioner Certified Nurse Practitioner 04/21/22 Kisha Pepe 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 - TONG SETTER 161 [facility] [address] [place] [address] Nurse Practitioner Nurse Practitioner 10/20/22 Door Closer Relationship Specialty Start Date End Date Herminia Case MD [address] [place] [address] PCP - General Family Medicine 12/12/18 Door Closer Relationship Specialty Start Date End Date Herminia Case MD [address] [place] [address] PCP - General Family Medicine 12/12/18 Door Closer Relationship Specialty Start Date End Date Herminia Case MD [address] [place] [address] PCP - General 04/15/15 Ziyad Menendez MD 161 [facility] [address] [place] [address] Consulting Physician Gynecologic Oncology 03/12/22 Sally Rocha 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 - TONG SETTER 161 [facility] [address] [place] [address] Nurse Practitioner Certified Nurse Practitioner 04/21/22 Kisha Pepe, 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 - TONG SETTER 161 [facility] [address] [place] [address] Nurse Practitioner Nurse Practitioner 10/20/22 Door Closer Relationship Specialty Start Date End Date Herminia Case MD [address] [place] [address] PCP - General Family Medicine 12/12/18 Door Closer Relationship Specialty Start Date End Date Herminia Case MD [address] [place] [address] PCP - General Family Medicine 12/12/18 Door Closer Relationship Specialty Start Date End Date Herminia Case MD [address] [place] [address] PCP - General Family Medicine 12/12/18 Door Closer Relationship Specialty Start Date End Date Herminia Case MD [address] [place] [address] PCP - General Family Medicine 12/12/18 Door Closer Relationship Specialty Start Date End Date Herminia Case MD [address] [place] [address] PCP - General Family Medicine 12/12/18 Door Closer Relationship Specialty Start Date End Date Herminia Case MD [address] [place] [address] PCP - General Family Medicine 12/12/18 Door Closer Relationship Specialty Start Date End Date Herminia Case MD [address] [place] [address] PCP - General Family Medicine 12/12/18 Door Closer Relationship Specialty Start Date End Date Herminia Case MD [address] [place] [address] PCP - General Family Medicine 12/12/18 Door Closer Relationship Specialty Start Date End Date Herminia Case MD [address] [place] [address] PCP - General Family Medicine 12/12/18 Door Closer Relationship Specialty Start Date End Date Herminia Case MD [address] [place] [address] PCP - General Family Medicine 12/12/18 Door Closer Relationship Specialty Start Date End Date Herminia Case MD [address] [place] [address] PCP - General Family Medicine 12/12/18 Door Closer Relationship Specialty Start Date End Date Herminia Case MD [address] [place] [address] PCP - General 04/15/15 Ziyad Menendez MD 161 [facility] [address] [place] [address] Consulting Physician Gynecologic Oncology 03/12/22 Sally Rocha APRN - TONG SETTER 161 [facility] [address] [place] [address] Nurse Practitioner Certified Nurse Practitioner 04/21/22 Kisha Pepe APRN - TONG SETTER 161 [facility] [address] [place] [address] Nurse Practitioner Nurse Practitioner 10/20/22 Door Closer Relationship Specialty Start Date End Date Herminia Case MD [address] [place] [address] PCP - General Family Medicine 12/12/18 Door Closer Relationship Specialty Start Date End Date Herminia Case MD [address] [place] [address] PCP - General Family Medicine 12/12/18 Door Closer Relationship Specialty Start Date End Date Herminia Case MD [address] [place] [address] PCP - General 04/15/15 Ziyad Menendez MD 161 [facility] [address] [place] [address] Consulting Physician Gynecologic Oncology 03/12/22 Sally Rocha APRN - TONG SETTER 161 [facility] [address] [place], [place] [id number] Nurse Practitioner Certified Nurse Practitioner 04/21/22 Kisha Pepe APRN - TONG SETTER 161 [facility] [address] [place] [address] Nurse Practitioner Nurse Practitioner 10/20/22 Door Closer Relationship Specialty Start Date End Date Herminia Case MD [address] [place] [address] PCP - General Family Medicine 12/12/18 Door Closer Relationship Specialty Start Date End Date Herminia Case MD [address] [place] [address] PCP - General 04/15/15 Ziyad Menendez MD [address] [address] Consulting Physician Gynecologic Oncology 03/12/22 Sally Rocha APRN - TONG SETTER [address] [address] Nurse Practitioner Certified Nurse Practitioner 04/21/22 Kisha Pepe APRN - TONG SETTER 161 [facility] [address] [place] [address] Nurse Practitioner Nurse Practitioner 10/20/22 Door Closer Relationship Specialty Start Date End Date Herminia Case MD [address] [place] [address] PCP - General Family Medicine 12/12/18 Door Closer Relationship Specialty Start Date End Date Herminia Case MD [address] [place] [address] PCP - General 04/15/15 Ziyad Menendez MD 161 [facility], [address] [place] [address] Consulting Physician Gynecologic Oncology 03/12/22 Sally Rocha, 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 - TONG SETTER 161 [facility] [address] [place] [address] Nurse Practitioner Certified Nurse Practitioner 04/21/22 Door Closer Relationship Specialty Start Date End Date Herminia Case MD [address] [place] [address] PCP - General 04/15/15 Ziyad Menendez MD 161 [facility], [address] [place] [address] Consulting Physician Gynecologic Oncology 03/12/22 Sally Rocha, 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 - TONG SETTER 161 [facility] [address] [place] [address] Nurse Practitioner Certified Nurse Practitioner 04/21/22 Door Closer Relationship Specialty Start Date End Date Herminia Case MD [address] [place] [address] PCP - General Family Medicine 12/12/18 Melva Juárez PA-C [address] [place], [place] [id number] Imaging System Administrator Family Medicine 02/26/24 Door Closer Relationship Specialty Start Date End Date Herminia Case MD [address] [place], [place] [id number] PCP - General Family Medicine 12/12/18 Melva Juárez PA-C [address] [place] [address] Imaging System Administrator Family [facility] 02/26/24 Door Closer Relationship Specialty Start Date End Date Herminia Case MD [address] [place] [address] PCP - General Family Medicine 12/12/18 Melva uJárez PA-C [address] [place] [address] Imaging System Administrator [facility] 02/26/24 Door Closer Relationship Specialty Start Date End Date Herminia Case MD [address] [place] [address] PCP - General Family Medicine 12/12/18 Melva Juárez PA-C [address] [place] [address] Imaging System Administrator [facility] 02/26/24 Door Closer Relationship Specialty Start Date End Date Herminia Case MD [address] [place] [address] PCP - General Family Medicine 12/12/18 Melva Juárez PA-C [address] [place] [address] Imaging System Administrator [facility] 02/26/24 Door Closer Relationship Specialty Start Date End Date Herminia Case MD [address] [place] [address] PCP - General Family Medicine 12/12/18 Melva Juárez PA-C [address] [place] [address] Imaging System Administrator Family Medicine 02/26/24 Door Closer Relationship Specialty Start Date End Date Herminia Case MD [address] [place] [address] PCP - General 04/15/15 Ziyad Menendez MD 161 [facility] [address] [place] [address] Consulting Physician Gynecologic Oncology 03/12/22 Sally Rocha APRN - TONG SETTER 161 [facility] [address] [place] [address] Nurse Practitioner Certified Nurse Practitioner 04/21/22 Kisha Pepe APRN - TONG SETTER 161 [facility] [address] [place] [address] Nurse Practitioner Nurse Practitioner 10/20/22 Door Closer Relationship Specialty Start Date End Date Herminia Case MD [address] [place] [address] PCP - General Family Medicine 12/12/18 Melva Juárez PA-C [address] [place] [address] Imaging System Administrator Family Medicine 02/26/24 Door Closer Relationship Specialty Start Date End Date Herminia Case MD [address] [place] [address] PCP - General Family Medicine 12/12/18 Melva Juárez PA-C [address] [place] [address] Imaging System Administrator Family Medicine 02/26/24 Door Closer Relationship Specialty Start Date End Date Herminia Case MD [address] [place] [address] PCP - General Family Medicine 12/12/18 Melva Juárez PA-C [address] [place] [address] Imaging System Administrator Family Medicine 02/26/24 Herminia Case MD [address] [place] [address] Home Care Provider Family Medicine 06/07/24 Herminia Case MD [address] [place] [address] Referring Family Medicine 06/07/24 Door Closer Relationship Specialty Start Date End Date Herminia Case MD [address] [place] [address] PCP - General Family Medicine 12/12/18 Melva Juárez PA-C [address] [place] [address] Imaging System Administrator Family Medicine 02/26/24 Herminia Case MD [address] [place] [address] Home Care Provider Family Medicine 06/07/24 Herminia Case MD [address] [place] [address] Referring Family Medicine 06/07/24 Door Closer Relationship Specialty Start Date End Date Herminia Case MD [address] [place] [address] PCP - General Family Medicine 12/12/18 Melva Juárez PA-C [address] [place] [address] Imaging System Administrator Family Medicine 02/26/24 Herminia Case MD [address] [place] [address] Home Care Provider Family Medicine 06/07/24 Herminia Case MD [address] [place] [address] Referring Family Medicine 06/07/24 Door Closer Relationship Specialty Start Date End Date Herminia Case MD [address] [place] [address] PCP - General Family Medicine 12/12/18 Melva Juárez PA-C [address] [place] [address] Imaging System Administrator Family Medicine 02/26/24 Herminia Case MD [address] [place] [address] Home Care Provider Family Medicine 06/07/24 Herminia Case MD [address] [place] [address] Referring Family Medicine 06/07/24 Door Closer Relationship Specialty Start Date End Date Herminia Case MD [address] [place] [address] PCP - General Family Medicine 12/12/18 Melva Juárez PA-C [address] [place] [address] Imaging System Administrator Family Medicine 02/26/24 Herminia Case MD [address] [place] [address] Home Care Provider Family Medicine 06/07/24 Herminia Case MD [address] [place] [address] Referring Family Medicine 06/07/24 Door Closer Relationship Specialty Start Date End Date Herminia Csae MD [address] [place] [address] PCP - General Family Medicine 12/12/18 Melva Juárez PA-C [address] [place] [address] Imaging System Administrator Family Medicine 02/26/24 Herminia Case MD [address] [place] [address] Home Care Provider Family Medicine 06/07/24 Herminia Case MD [address] [place] [address] Referring Family Medicine 06/07/24 Door Closer Relationship Specialty Start Date End Date Herminia Case MD [address] [place] [address] PCP - General Family Medicine 12/12/18 Melva Juárez PA-C [address] [place] [address] Imaging System Administrator Family Medicine 02/26/24 Herminia Case MD [address] [place] [address] Home Care Provider Family Medicine 06/07/24 Herminia Case MD [address] [place] [address] Referring Family Medicine 06/07/24 Door Closer Relationship Specialty Start Date End Date Herminia Case MD [address] [place], [place] [id number] PCP - General 04/15/15 Ziyad Menendez MD 161 [facility] [address] [place] [address] Consulting Physician Gynecologic Oncology 03/12/22 Sally Rocha 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 - TONG SETTER 161 [facility] [address] [place] [address] Nurse Practitioner Certified Nurse Practitioner 04/21/22 Kisha Pepe 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 - TONG SETTER 161 [facility] [address] [place] [address] Nurse Practitioner Nurse Practitioner 10/20/22 Door Closer Relationship Specialty Start Date End Date Herminia Case MD [address] [place] [address] PCP - General 04/15/15 Ziyad Menendez MD 161 [facility] [address] [place] [address] Consulting Physician Gynecologic Oncology 03/12/22 Sally Rocha, 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 - TONG SETTER 161 [facility] [address] [place] [address] Nurse Practitioner Certified Nurse Practitioner 04/21/22 Kisha Pepe, 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 - TONG SETTER 161 [facility] [address] [place] [address] Nurse Practitioner Nurse Practitioner 10/20/22 Door Closer Relationship Specialty Start Date End Date Herminia Case MD [address] [place] [address] PCP - General Family Medicine 12/12/18 Melva Juárez PA-C [address] [place] [address] Imaging System Administrator Family Medicine 02/26/24 Herminia Case MD [address] [place] [address] Home Care Provider Family Medicine 06/07/24 Herminia Case MD [address] [place] [address] Referring Family Medicine 06/07/24 Door Closer Relationship Specialty Start Date End Date Herminia Case MD [address] [place] [address] PCP - General 04/15/15 Ziyad Menendez MD [address] [address] Consulting Physician Gynecologic Oncology 03/12/22 Sally Rocha, 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 - TONG SETTER 161 [facility] [address] [place] [address] Nurse Practitioner Certified Nurse Practitioner 04/21/22 Kisha Pepe APRN - TONG SETTER 161 [facility] [address] [place] [address] Nurse Practitioner Nurse Practitioner 10/20/22 Door Closer Relationship Specialty Start Date End Date Herminia Case MD [address] [place] [address] PCP - General Family Medicine 12/12/18 Melva Juárez PA-C [address] [place] [address] Imaging System Administrator Family Medicine 02/26/24 Herminia Case MD [address] [place] [address] Home Care Provider Family Medicine 06/07/24 Herminia Case MD [address] [place] [address] Referring Family Medicine 06/07/24 Door Closer Relationship Specialty Start Date End Date Herminia Case MD [address] [place] [address] PCP - General 04/15/15 Ziyad Menendez MD 161 [facility] [address] [place] [address] Consulting Physician Gynecologic Oncology 03/12/22 Sally Rocha APRN - TONG SETTER 161 [facility] [address] [place] [address] Nurse Practitioner Certified Nurse Practitioner 04/21/22 Kisha Pepe APRN - TONG SETTER 161 [facility] [address] [place], [place] [id number] Nurse Practitioner Nurse Practitioner 10/20/22 Door Closer Relationship Specialty Start Date End Date Herminia Case MD [address] [place] [address] PCP - General 04/15/15 Ziyad Menendez MD 161 [facility] [address] [place] [address] Consulting Physician Gynecologic Oncology 03/12/22 Sally Rocha APRN - TONG SETTER 161 [facility] [address] [place] [address] Nurse Practitioner Certified Nurse Practitioner 04/21/22 Kisha Pepe APRN - TONG SETTER 161 [facility] [address] [place] [address] Nurse Practitioner Nurse Practitioner 10/20/22 FOR RECORDS [...] BE BASED ON THE PRIMARY CLINICAL RECORDS. [employer] [facility]. provides no warranty or guarantee of the accuracy or completeness of information in this document.
[2024-10-01 09:35] LABS: Anion Gap 6 (5-15); BUN 18 mg/dL (4-19); BUN/Creat Ratio 33.1 RATIO (10-20); Calcium,Total 9.3 mg/dL (7.6-11.0); Carbon Dioxide 34.9 mmol/L (21.0-32.0); Chloride 101 mmol/L (98-108); Glucose 80 mg/dL (70-99); Potassium 4.6 mmol/L (3.3-5.1)
[2024-10-01 11:57] LABS: Hematocrit 37.6 % (37-47); Hemoglobin 11.4 g/dL (12.0-15.0); Mean Corp Hgb Conc 30.3 g/dL (32-36); Mean Corpuscular Volume 99.7 fL (81-99); Mean Platelet Vol. 9.8 fl (6.2-12.0); Platelet Count 248 K/mm3 (150-450); RBC Distribution Width CV 13.2 % (11.6-14.6); RBC Distribution Width SD 48.3 fl (35.1-43.9); Red Blood Count 3.77 M/mm3 (4.2-5.4); White Blood Count 6.3 K/mm3 (4.4-11.0)
== END ==
LOC: OLS.SANC 05:00
PROVIDERS: Visit Provider Internal Medicine
DX: J44.9 Chronic obstructive pulmonary disease, unspecified (principal)
CPT/HCPCS: 36415; 80048; 85027

== ENCOUNTER → 2024-12-12 | Outpatient (REF) | payer MEDICARE, MEDICAID, SELFPAY ==
--- OUTSIDE RECORDS SUMMARY | 2024-12-12 04:27 | XMS RPT_ITS | CCD ---
Author Organization [facility] Care Team Providers Care 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 Name Role Phone Herminia Csae Primary Care Provider Herminia Case Primary Care Unavailable Evie, Herminia Referring Unavailable Ziyad Menendez Attending Unavailable Evie, Herminia Primary Care Unavailable Disttimmy, Herminia Referring Unavailable Ziyad Menendez Attending Unavailable Evie, Herminia Primary Care Unavailable Distel, Herminia Referring Unavailable Ziyad Menendez Attending Unavailable Guanakoel, Herminia Primary Care Unavailable Guanakoel, Herminia Referring Unavailable Ziyad Menendez Attending Unavailable Distel, Herminia Primary Care Unavailable Distel, Herminia Referring Unavailable Ziyad Menendez Attending Unavailable Herminia Case MD Primary Care Provider Herminia Case MD Primary Care Provider Herminia Case MD Primary Care Provider Ziyad Menendez MD Unavailable Aj SEED LABORATORY TECHNICIAN - SHOE TURNER, Sally Unavailable Afshin SEED LABORATORY TECHNICIAN - SHOE TURNER, Kisha Unavailable Ziyad Menendez MD Unavailable Aj SEED LABORATORY TECHNICIAN - SHOE TURNER, Sally Unavailable Ziyad Menendez MD Unavailable Herminia Case MD Primary Care Provider Herminia Case MD Primary Care Provider Ziyad Menendez MD Unavailable Aj SEED LABORATORY TECHNICIAN - SHOE TURNER, Sally Unavailable Melva Juárez PA-C Unavailable Herminia [...] Care Unavailable JOAQUINA MARTINEZ Attending Unava ilable Katsaros OLS, Jameson Attending Unavailable Katsaros OLS, Jameson Referring Unavailable Katsaros OLS, Jameson Referring Unavailable Katsaros OLS, Jameson Attending Unavailable Katsaros OLS, Jameson Attending Unavailable Katsaros OLS, Jameson Attending Unavailable Katsaros OLS, Jameson Attending Unavailable Katsaros OLS, Jameson Attending Unavailable Aj SEED LABORATORY TECHNICIAN - SHOE TURNER, Sally Unavailable [phone] Afshin SEED LABORATORY TECHNICIAN - SHOE TURNER, Kisha Unavailable [phone] DISTEL, HERMINIA Primary Care Unavailable ZIYAD MENENDEZ Referring Unavailable ZIYAD MENENDEZ Attending Unavailable DISTEL, HERMINIA Primary Care Unavailable ELYSSA TESFAYE Attending Unavailable DISTEL, HERMINIA Primary Care Unavailable FLAKO ALTAMIRANO Attending Unavailable DISTEL, HERMINIA Primary Care Unavailable DEJUAN BISHOP Admitting Unavailable RENA BEVERLY Attending Unavailable BETSEY GRESHAM Unavailable DISTEL, HERMINIA Primary Care Unavailable ELYSSA TESFAYE Referring Unavailable ELYSSA TESFAYE Attending Unavailable DISTEL, HERMINIA Primary Care Unavailable ELYSSA TESFAYE Referring Unavailable ELYSSA TESFAYE Attending Unavailable Allergies Allergy Classification Reported Allergen(s) Allergy Type Date of Onset Reaction(s) Facility (20 sources) Seasonal allergy; Translations: [SEASONAL ALLERGIES] Allergy to substance 08-16-2017 Intolerance [facility] Work Phone: (20 sources) Pollen Allergy to substance 08-16-2017 Unknown [facility] Medications Current Medications Medication Drug Class(es) Dates [...] intertrochanteric fracture of left femur, initial encounter ([facility]) Take 1 tablet by mouth every 6 [...] 6 HOURS PRN, Pain Severe (7-10), Starting [facility] 08/02/19 at 2107 Maximum dose of acetaminophen [...] HMG-CoA Reductase Inhibitor Start: 11-21-19 End: 07-31-19 25 take 1 tablet by mouth once daily atorvastatin (LIPITOR) 40 mg tablet Indications: Hyperlipidemia, mixed TAKE 1 TABLET BY MOUTH EVERY DAY AT NIGHT 90 tablet 3 2022 Active Comment on above: TAKE 1 TABLET BY SHANNA TH EVERY DAY AT NIGHT azithromycin 250 mg oral tablet (2 sources) Macrolide Antimicrobial Start: 03-16-20 End: 03-26-19 21 azithromycin (ZITHROMAX) 250 MG tablet Indications: COPD [...] mouth. docusate sodium 50 mg / sennosides, long term 8.6 mg oral tablet (20 sources) Start: [...] on above: Take 1 capsule by mo [facility] twice daily for 7 days. Take 1 capsule by mo [facility] twice daily for 10 days. 60 actuat [...] WITH WATER AFTER EACH USE. 1 Each 07/08/2023 01/04/2024 Active Fluticasone Furoate-Vilanterol (BREO ELLIPTA IN) (19 sources) Fluticasone Furoate-Vilanterol (BREO ELLIPTA IN) Inhale into the lungs daily 0 Active folic acid 1 mg oral tablet (11 sources) Start: 08-07-2024 End: 08-09-2025 take 1 tablet by mouth once daily folic acid (Folvite) 1 MG tablet Take 1 tablet (1 mg) by mouth daily. 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 respiratory failure with hypoxia (HCC) , [...] morning, First dose (after last modification) on [place] 08/02/24 at 0900 Start: 09-22-2023 End: 08-08-2024 take [...] 200 mg, Oral, Nightly, First dose on 02/14/23 at 2100, Indications: Generalized Anxiety Disorder, Major [...] Inhalation, EVERY 6 HOURS PRN, Wheezing, Starting [facility] 08/02/19 at 2106 Start: 08-02-2019 albuterol [...] sodium chloride 0.9 % 250 mL IVPB (ADD-Butner) (2 sources) Start: 08-07-2023 End: 08-07-2023 azithromycin (Zithromax) 500 mg in sodium chloride 0.9 % 250 mL IVPB (ADD-Butner) ceFAZolin 1000 mg injection (1 source) Cephalosporin [...] Minutes, Every 8 hours, First dose on [place] 11/07/22 at 1600, For 2 doses, Phase [...] sources) Serotonin and Norepinephrine Reuptake Inhibitor Start: 023 End: 024 take 1 capsule by mouth once daily [...] on above: Take 1 capsule by mo uth once daily for 14 days. Take 1 capsule by mo uth once daily. 0.3 ml enoxaparin sodium 100 [...] 05-21-2022 End: 05-21-2022 lidocaine-EPINEPHrine (Xylocaine W/EPI) 1 %-1:644025 injection 10 mL Start: 12-19-2019 End: 12-19-2019 lidocaine-EPINEPHrine 2 perc ent-1:471375 injection 2 ml fentaNYL 0.05 mg/ml injection [...] 2 TIMES A DAY INHALED 30 DAY(S) 5 10/20/2016 01/18/2020 Discontinued (LIST CLEANUP) fosaprepitant (EMEND) [...] Oral, 2 TIMES DAILY, First dose on Tue08/02/19 at 2130 Comment on above: Take 600 [...] reach optimal image enhancement polyethylene glycol 3350 [id number] mg powder for oral solution (14 sources) [...] on above: Take 2 tablets by mo uth once daily. TAKE 2 TABLETS BY MO UTH EVERY DAY sodium chloride 0.111 meq/ml nasal [...] [Mild intermittent asthma, uncomplicated] Onset: 08-29-2024 Chronic Cancer of cervix (20 sources) Malignant neoplasm of exocervix; Translations: [Malignant neoplasm of exocervix] Onset: 11-02-2019 Resolved: 05-20-2023 11-07-2019 Chronic Cardiac and circulatory congenital anomalies (15 sources) Patent foramen ovale; Translations: [PFO (patent [...] [Hypokalemia] Onset: 09-17-2016 Resolved: 04-13-2018 09-22-2016 Episodic Mood disorders (20 sources) Recurrent major [...] other than malignant neoplasm] 08-20-2024 Episodic Other connective tissue disease (2 [...] encounter] 09-19-2023 Episodic Other lower respiratory disease (2 sources) Other nonspecific abnormal finding of lung field; Translations: [Other nonspecific abnormal finding of lung field] Onset: 10-14-2021 Episodic Other nervous system disorders (20 sources) Chronic pain syndrome; Translations: [Chronic pain syndrome] Onset: 03-11-2023 Resolved: 03-11-2023 03-11-2023 Chronic Other nervous system disorders (11 sources) Chronic pain; Translations: [Other chronic pain] Onset: 04-10-2017 08-03-2024 Chronic Other screening for suspected conditions (not mental [...] of malignant neoplasm of breast] 01-22-2023 Episodic Respiratory failure; insufficiency; arrest (adult) (20 sources) Dependence on supplemental oxygen; Translations: [Dependence on supplemental oxygen] Onset: 09-14-2016 Resolved: 09-23-2016 04-10-2017 Chronic Spondylosis; intervertebral disc disorders; other back problems (20 sources) Degeneration of cervical intervertebral disc; Translations: [Other cervical disc degeneration, unspecified cervical region] Onset: 04-12-2018 04-12-2018 Chronic Syncope (2 sources) Near syncope; Translations: [Syncope and collapse] 09-19-2023 Episodic Thyroid disorders (1 source) Hypothyroidism, unspecified; Translations: [Hypothyroidism, unspecified] Onset: 09-20-2024 Chronic Unclassified (20 sources) Compression fracture of thoracic vertebra; Translations: [Thoracic compression fracture] 04-12-2018 Unclassified (1 source) Abnormal findings on diagnostic imaging of other specified body structures; Translations: [Abnormal CT of the chest] Unclassified (1 source) OPENED IN ERROR 10-06-2023 Urinary tract infections (1 source) Urinary tract infection, site not specified; Translations: [Urinary tract infection, site not specified] Onset: 10-09-2024 Episodic Viral infection (20 sources) Infection due to Human parainfluenza virus 3; Translations: [Other viral infections of unspecified site] Onset: 09-14-2016 Resolved: 09-23-2016 09-23-2016 Episodic Past or Other Problems Problem Classification Problem Date Documented Date Episodic/Chronic Bacterial infection; unspecified site (20 sources) Haemophilus infection; Translations: [Hemophilus influenzae infection, unspecified site] Onset: 09-19-2016 Resolved: 09-23-2016 09-23-2016 Episodic Cancer of cervix (20 sources) History of [...] routine healing] Onset: 05-22-2022 Resolved: 11-06-2022 Episodic Fracture of upper limb (4 sources) Closed supracondylar fracture of left humerus; Translations: [Displaced simple supracondylar fracture without intercondylar fracture of left humerus, initial encounter for closed fracture] Onset: 07-30-2024 07-30-2024 Episodic Genitourinary symptoms and ill-defined conditions (20 sources) Blood in urine; Translations: [Hematuria, unspecified] Onset: 09-22-2016 Resolved: 04-13-2018 04-13-2018 Episodic Malaise and fatigue (19 sources) Asthenia; Translations: [Other malaise] Onset: 09-20-2023 09-20-2023 Episodic Neoplasms of unspecified nature or uncertain behavior (20 sources) Neoplasm of uncertain behavior of skin; Translations: [Neoplasm of uncertain behavior of skin] Onset: 04-23-2016 03-11-2023 Episodic Open wounds of head; neck; and trunk (2 sources) Facial laceration ; Translations: [Laceration without foreign body of other part of head, initial encounter] Episodic Other aftercare (2 sources) Encounter for follow-up examination after completed treatment for conditions other than malignant neoplasm; Translations: [Encounter for follow-up examination after completed treatment for conditions other than malignant neoplasm] Onset: 08-20-2024 Episodic Other circulatory disease (20 sources) Drug-induced [...] 11-06-2022 01-01-2022 Episodic Other connective tissue disease (19 sources) Recurrent falls ; Translations: [Repeated falls] [...] for closed fracture] Onset: 07-11-2018 Episodic Other liver diseases (20 sources) Enzyme [...] of breath] Onset: 04-13-2018 04-13-2018 Episodic Other lower respiratory disease (20 sources) Solitary pulmonary nodule; Translations: [Nodule of lung] Onset: 04-10-2017 04-10-2017 Episodic Other nervous system disorders (11 sources) Impaired cognition; Translations: [Other symptoms and signs involving cognitive functions and awareness] Onset: 08-03-2024 08-03-2024 Episodic Other nutritional; endocrine; and metabolic disorders (20 sources) Obese class I; Translations: [Obesity, unspecified] Onset: 12-07-2018 Resolved: 03-11-2023 12-07-2018 Chronic Other nutritional; endocrine; and metabolic disorders (17 sources) Unintentional weight loss; Translations: [Abnormal weight loss] Onset: 09-20-2023 09-20-2023 Episodic Other nutritional; endocrine; and metabolic disorders (15 sources) Adult failure to thrive syndrome; Translations: [Adult failure to thrive] Onset: 07-30-2024 07-30-2024 Episodic Other nutritional; endocrine; and metabolic disorders (2 sources) Adult failure to thrive; Translations: [Adult failure to thrive] Onset: 07-30-2024 Episodic Other upper respiratory disease (20 sources) [...] Translations: [S/P hysterectomy] Onset: 11-06-2019 11-07-2019 Episodic Residual codes; unclassified (11 sources) At risk of delirium; Translations: [Other [...] right elbow, initial encounter] Onset: 04-27-2024 Episodic Unclassified (20 sources) Patient encounter status; Translations: [Goals of care, counseling/discussion] Resolved: 09-23-2016 09-23-2016 Results Test Name Value Interpretation Reference Range Facility CT CHEST WO IV CONTRASTon CT CHEST WO IV CONTRAST Patient Name: GONZALO HADDAD : 1955 [facility]#: [id number] Exam Date/Time: 11/20/2024 16:24 Procedure: CT CHEST WO IV CONTRAST Ordering Provider: TESFAYE CHRISTIE Reason For Exam: hospital follow up pneumonia RLL EXAM: CT Chest Without Intravenous Contrast CLINICAL INDICATION: hospital follow up pneumonia RLL TECHNIQUE: Axial computed tomography images of the chest without intravenous contrast. This CT exam was performed using one or more of the following dose reduction techniques: automated exposure control, adjustment of the mA and/or kV according to patient size, and/or use of iterative reconstruction technique. COMPARISON: Chest CT from 07/31/2024 FINDINGS: LUNGS AND PLEURAL SPACES: Advanced bilateral panlobular emphysematous changes. Multifocal linear scarring in both lungs. Mild scattered endobronchial mucous plugging. Diffuse bronchial wall thickening, which appears slightly progressed since prior. Diffuse moderate bronchiectasis, similar to prior. Interval resolution of previously visualized subpleural consolidation in the left lower lobe. New mild focal consolidation in the medial aspect of the right upper lobe, abutting the mediastinum. Bilateral scattered tree-in-bud opacities. Stable noncalcified 7 mm nodule in the lingula (series 6 image 162). This is unchanged since the patient's chest CT from 10/16/2023. New 7 mm right upper lobe pulmonary nodule (series 6 image 94). New 4 mm left lower lobe pulmonary nodule (series 6 image 204). This is likely inflammatory/infectiou s in nature. New 3 mm right upper lobe pulmonary nodule (series 6 image 160). New 3 mm left upper lobe pulmonary nodule (series 6 image 73). Several additional scattered tiny pulmonary nodules. No significant effusion. No pneumothorax. HEART: Minimal coronary artery calcifications. MEDIASTINUM: Mildly prominent mediastinal lymph nodes, measuring up to approximately 12 mm in short axis dimension. BONES/JOINTS: Degenerative change of the spine. Chronic fracture deformity of the medial left clavicle. Several chronic thoracic and upper lumbar vertebral body compression fractures. SOFT TISSUES: Unremarkable. VASCULATURE: See above. LYMPH NODES: See above. KIDNEYS AND URETERS: Small simple parapelvic left renal cysts. No follow-up imaging is recommended. Small nonobstructing left renal calyceal calculus. TUBES, LINES AND DEVICES: Left chest wall abner catheter terminates in the upper SVC. IMPRESSION: 1. Interval resolution of previously visualized left lower lobe pneumonia. New mild focal consolidation in the right upper lobe, favored to reflect pneumonia. 2. Advanced emphysematous changes. 3. Diffuse bronchiectasis, diffuse bronchial wall thickening, and mild endobronchial mucous plugging. Bilateral small airways disease. These findings appear slightly progressed since prior. 4. 7 mm left upper lobe pulmonary nodule, which has been stable for over 12 months. Few new pulmonary nodules, measuring up to 7 mm. Recommend follow-up according to Fleischner criteria. 5. Mild mediastinal lymphadenopathy. 2017 - UPDATED [employer] GUIDELINES FOR MANAGEMENT OF SMALL PULMONARY NODULES DETECTED ON CT Note: Recommendations do not apply for lung cancer screening, patients with immunosuppression or with known cancer. Dimensions are average of long and short axis rounded to the millimeter SOLITARY NODULE: LOW RISK PATIENT <6mm - No follow up 6-8mm - 6-12 months, then consider 18-24 months >8mm - PET/CT, Bx or followup in 3 months SOLITARY NODULE: HIGH RISK PATIENT <6mm - Optional 6-12 months (suspicious morphology or upper lobe) 6-8mm - 6-12 months, then 18-24 months >8mm - PET/CT, Bx or followup in 3 months MULTIPLE NODULES: LOW RISK PATIENT (Use most suspicious nodule to manage guidelines) All <6mm - No follow up Any >6mm - 3-6 months, then consider 18-24 months MULTIPLE NODULES: HIGH RISK PATIENT (Use most suspicious nodule to manage guidelines) All <6mm - No follow up Any >6mm - 3-6 months, then 18-24 months SUBSOLID NODULE: SINGLE GROUND GLASS OPACITY <6mm - No follow up 6mm or greater - 6-12 months, then every 2 years until 5 years SUBSOLID NODULE: PART SOLID <6mm - No follow up 6mm or greater - 3-6 months, then if solid component <6mm and unchanged every year until 5 years MULTIPLE SUBSOLID NODULES: All <6mm - 3-6 months, then if stable 24 and 48 months 6mm or greater - 3-6 months, subsequent management based upon most suspicious nodule Report Dictated on Electronically Signed By: Melisa Vallejo MD Electronically Signed Date/Time: 11/22/2024 10:07 AM EDT F/U PNUEMONIA SOB Normal [facility] Basic Metabolic Profile (BMP )on 10-01-2024 BUN/CRE 33.1 RATIO High 10-20 [facility] Comment on above: Order Comment: 311.1 Performed By: #### L 500.2500, L100.0500 #### [facility] [address] [place], [address] Calcium [Mass/Vol] 9.3 mg/dL Normal 7.6-11.0 [facility] Comment on above: Order Comment: 311.1 Performed By: #### L 500.2500, L100.0500 #### [facility] [address] [place], [address] Chloride [Moles/Vol] 101 mmol/L Normal 98-108 [facility] Comment on above: Order Comment: 311.1 Performed By: #### L 500.2500, L100.0500 #### [facility] [address] [place], [address] CO2 [Moles/Vol] 34.9 mmol/L High 21.0-32.0 [facility] Comment on above: Order Comment: 311.1 Performed By: #### L 500.2500, L100.0500 #### [facility] [address] [place], [address] Creatinine [Mass/Vol] 0.54 mg/dL Low 0.70-1.20 [facility] Comment on above: Order Comment: 311.1 Performed By: #### L 500.2500, L100.0500 #### [facility] [address] [place], [address] GAP 6 Normal 5-15 [facility] Comment on above: Order Comment: 311.1 Performed By: #### L 500.2500, L100.0500 #### [facility] [address] [place], [address] GFR/1.73 sq M.predicted among non-blacks MDRD (S/P/Bld) [Vol rate/Area] 101 mL/min/{1.73_m2} Normal >60 [facility] Comment on above: Order Comment: 311.1 Result Comment: mL/m in/1.73m2 CKD-EPI Creatinine Equation (2020) Performed By: #### L 500.2500, L100.0500 #### [facility] [address] [place], [address] Glucose [Mass/Vol] 80 mg/dL Normal 70-99 [facility] Comment on above: Order Comment: 311.1 Performed By: #### L 500.2500, L100.0500 #### [facility] [address] [place], [address] Potassium [Moles/Vol] 4.6 mmol/L Normal 3.3-5.1 [facility] Comment on above: Order Comment: 311.1 Performed By: #### L 500.2500, L100.0500 #### [facility] [address] [place], [address] Sodium [Moles/Vol] 142 mmol/L Normal 133-145 [facility] Comment on above: Order Comment: 311.1 Performed By: #### L 500.2500, L100.0500 #### [facility] [address] [place], [address] Urea nitrogen [Mass/Vol] 18 mg/dL Normal 4-19 [facility] Comment on above: Order Comment: 311.1 Performed By: #### L 500.2500, L100.0500 #### [facility] [address] [place], [address] CBC-Complete Blood Cnt No Di ffon 10-01-2024 Erythrocyte distribution width (RBC) [Ratio] 13.2 % Normal 11.6-14.6 [facility] Comment on above: Order Comment: 311.1 Performed By: #### L 400.0001, M100.2200 #### [facility] [address] [place], [address] Hematocrit (Bld) [Volume fraction] 37.6 % Normal 37-47 [facility] Comment on above: Order Comment: 311.1 Performed By: #### L 400.0001, .2199 #### [facility] [address] [place], [address] Hemoglobin (Bld) [Mass/Vol] 11.4 g/dL Low 12.0-15.0 [facility] Comment on above: Order Comment: 311.1 Performed By: #### L 400.0001, #### [facility] [address] [place], [address] MCH (RBC) [Entitic mass] 30.2 pg Normal 27.0-32.0 [facility] Comment on above: Order Comment: 311.1 Performed By: #### L 400.0001, #### [facility] [address] [place], [address] MCHC (RBC) [Mass/Vol] 30.3 g/dL Low 32-36 [facility] Comment on above: Order Comment: 311.1 Performed By: #### L 400.0001, #### [facility] [address] [place], [address] MCV (RBC) [Entitic vol] 99.7 fL High 81-99 [facility] Comment on above: Order Comment: 311.1 Performed By: #### L 400.0001, #### [facility] [address] [place], [address] Platelet mean volume (Bld) [Entitic vol] 9.8 fL Normal 6.2-12.0 [facility] Comment on above: Order Comment: 311.1 Performed By: #### L 400.0001, .2199 #### [facility] [address] [place], [address] Platelets (Bld) [#/Vol] 248 10*3/uL Normal 150-450 [facility] Comment on above: Order Comment: 311.1 Performed By: #### L 400.0001, M1.0 #### [facility] [address] [place], [address] RBC (Bld) [#/Vol] 3.77 10*6/uL Low 4.2-5.4 [facility] Comment on above: Order Comment: 311.1 Performed By: #### L 400.0001, .0 #### [facility] [address] [place], [address] RDW SD 48.3 fl High 35.1-43.9 [facility] Comment on above: Order Comment: 311.1 Performed By: #### L 400.0001, .2199 #### [facility] [address] [place], [address] WBC (Bld) [#/Vol] 6.3 10*3/uL Normal 4.4-11.0 [facility] Comment on above: Order Comment: 311.1 Performed By: #### L 400.0001, #### [facility] [address] [place], [address] Urine Cultureon 09-20-2024 [facility] UNKNOWN METHOD OF COLLECTION Mixed Gram Pos Gram Neg Org Yarnell Count 11,000-25,000 MIXC Mixed contaminants. Submit a new specimen if indicated. Normal [facility] Comment on above: Performed By: #### L 400.0001, M1.0 #### [facility] [address] [place], [address] Urinalysis, Completeon 09-18 CA OX CRYSTAL 1+ /hpf Normal [facility] Comment on above: Order Comment: UNKNO WN METHOD OF COLLECTION CLEAN CATCH Performed By: #### L 400.0001, M1.2199 #### [facility] [address] [place], [address] BACTERIA 0 SEEN Normal None Seen [facility] Comment on above: Order Comment: UNKNO WN METHOD OF COLLECTION CLEAN CATCH Performed By: #### L 400.0001, M1.0 #### [facility] [address] [place], [address] EPI,SQUAMOUS 0 SEEN Normal 5-10 [facility] [facility] Comment on above: Order Comment: UNKNO WN METHOD OF COLLECTION CLEAN CATCH Performed By: #### L 400.0001, M1.2199 #### [facility] [address] [place], [address] Mucus Ql (Urine sed) 0 SEEN Normal [facility] Comment on above: Order Comment: UNKNO WN METHOD OF COLLECTION CLEAN CATCH Performed By: #### L 400.0001, .2199 #### [facility] [address] [place], [address] RBC 0 SEEN Normal 0-5 [facility] Comment on above: Order Comment: UNKNO WN METHOD OF COLLECTION CLEAN CATCH Performed By: #### L 400.0001, M1.2199 #### [facility] [address] [place], [address] WBC 0 SEEN Normal 0-5 [facility] Comment on above: Order Comment: UNKNO WN METHOD OF COLLECTION CLEAN CATCH Performed By: #### L 400.0001, M1.2199 #### [facility] [address] [place], [address] Basic Metabolic Profile (BMP )on 09-17-2024 BUN/CRE 26.7 RATIO High 10-20 [facility] Comment on above: Order Comment: 311-2 Performed By: #### L 500.2500, L100.0500 #### [facility] [address] [place], [address] Calcium [Mass/Vol] 8.9 mg/dL Normal 7.6-11.0 [facility] Comment on above: Order Comment: 311-2 Performed By: #### L 500.2500, L100.0500 #### [facility] [address] [place], [address] Chloride [Moles/Vol] 103 mmol/L Normal 98-108 [facility] Comment on above: Order Comment: 311-2 Performed By: #### L 500.2500, L100.0500 #### [facility] [address] [place], [address] CO2 [Moles/Vol] 32.9 mmol/L High 21.0-32.0 [facility] Comment on above: Order Comment: 311-2 Performed By: #### L 500.2500, L100.0500 #### [facility] [address] [place], [address] Creatinine [Mass/Vol] 0.56 mg/dL Low 0.70-1.20 [facility] Comment on above: Order Comment: 311-2 Performed By: #### L 500.2500, L100.0500 #### [facility] [address] [place], [address] GAP 7 Normal 5-15 [facility] Comment on above: Order Comment: 311-2 Performed By: #### L 500.2500, L100.0500 #### [facility] [address] [place], [address] GFR/1.73 sq M.predicted among non-blacks MDRD (S/P/Bld) [Vol rate/Area] 100 mL/min/{1.73_m2} Normal >60 [facility] Comment on above: Order Comment: 311-2 Result Comment: mL/m in/1.73m2 CKD-EPI Creatinine Equation (2020) Performed By: #### L 500.2500, L100.0500 #### [facility] [address] [place], [address] Glucose [Mass/Vol] 80 mg/dL Normal 70-99 [facility] Comment on above: Order Comment: 311-2 Performed By: #### L 500.2500, L100.0500 #### [facility] [address] [place], [address] Potassium [Moles/Vol] 4.1 mmol/L Normal 3.3-5.1 [facility] Comment on above: Order Comment: 311-2 Performed By: #### L 500.2500, L100.0500 #### [facility] [address] [place], [address] Sodium [Moles/Vol] 143 mmol/L Normal 133-145 [facility] Comment on above: Order Comment: 311-2 Performed By: #### L 500.2500, L100.0500 #### [facility] [address] [place], [address] Urea nitrogen [Mass/Vol] 15 mg/dL Normal 4-19 [facility] Comment on above: Order Comment: 311-2 Performed By: #### L 500.2500, L100.0500 #### [facility] [address] [place], [address] CBC-Complete Blood Cnt No Di ffon 09-17-2024 Erythrocyte distribution width (RBC) [Ratio] 13.7 % Normal 11.6-14.6 [facility] Comment on above: Order Comment: 311-2 Performed By: #### L 500.2500, L100.0500 #### [facility] [address] [place], [address] Hematocrit (Bld) [Volume fraction] 35.4 % Low 37-47 [facility] Comment on above: Order Comment: 311-2 Performed By: #### L 500.2500, L100.0500 #### [facility] [address] [place], [address] Hemoglobin (Bld) [Mass/Vol] 10.7 g/dL Low 12.0-15.0 [facility] Comment on above: Order Comment: 311-2 Performed By: #### L 500.2500, L100.0500 #### [facility] [address] [place], [address] MCH (RBC) [Entitic mass] 30.9 pg Normal 27.0-32.0 [facility] Comment on above: Order Comment: 311-2 Performed By: #### L 500.2500, L100.0500 #### [facility] [address] [place], [address] MCHC (RBC) [Mass/Vol] 30.2 g/dL Low 32-36 [facility] Comment on above: Order Comment: 311-2 Performed By: #### L 500.2500, L100.0500 #### [facility] [address] [place], [address] MCV (RBC) [Entitic vol] 102.3 fL High 81-99 [facility] Comment on above: Order Comment: 311-2 Performed By: #### L 500.2500, L100.0500 #### [facility] [address] [place], [address] Platelet mean volume (Bld) [Entitic vol] 9.9 fL Normal 6.2-12.0 [facility] Comment on above: Order Comment: 311-2 Performed By: #### L 500.2500, L100.0500 #### [facility] [address] [place], [address] Platelets (Bld) [#/Vol] 246 10*3/uL Normal 150-450 [facility] Comment on above: Order Comment: 311-2 Performed By: #### L 500.2500, L100.0500 #### [facility] [address] [place], [address] RBC (Bld) [#/Vol] 3.46 10*6/uL Low 4.2-5.4 [facility] Comment on above: Order Comment: 311-2 Performed By: #### L 500.2500, L100.0500 #### [facility] [address] [place], [address] RDW SD 52.1 fl High 35.1-43.9 [facility] Comment on above: Order Comment: 311-2 Performed By: #### L 500.2500, L100.0500 #### [facility] [address] [place], [address] WBC (Bld) [#/Vol] 8.0 10*3/uL Normal 4.4-11.0 [facility] Comment on above: Order Comment: 311-2 Performed By: #### L 500.2500, L100.0500 #### [facility] [address] [place], [address] Basic Metabolic Profile (BMP )on 09-14-2024 BUN/CRE 23.4 RATIO High 10-20 [facility] Comment on above: Order Comment: 311-2 Performed By: #### L 500.2500, L100.0500 #### [facility] [address] [place], [address] Calcium [Mass/Vol] 9.2 mg/dL Normal 7.6-11.0 [facility] Comment on above: Order Comment: 311-2 Performed By: #### L 500.2500, L100.0500 #### [facility] [address] [place], [address] Chloride [Moles/Vol] 98 mmol/L Normal 98-108 [facility] Comment on above: Order Comment: 311-2 Performed By: #### L 500.2500, L100.0500 #### [facility] [address] [place], [address] CO2 [Moles/Vol] 29.4 mmol/L Normal 21.0-32.0 [facility] Comment on above: Order Comment: 311-2 Performed By: #### L 500.2500, L100.0500 #### [facility] [address] [place], [address] Creatinine [Mass/Vol] 0.56 mg/dL Low 0.70-1.20 [facility] Comment on above: Order Comment: 311-2 Performed By: #### L 500.2500, L100.0500 #### [facility] [address] [place], [address] GAP 12 Normal 5-15 [facility] Comment on above: Order Comment: 311-2 Performed By: #### L 500.2500, L100.0500 #### [facility] [address] [place], [address] GFR/1.73 sq M.predicted among non-blacks MDRD (S/P/Bld) [Vol rate/Area] 100 mL/min/{1.73_m2} Normal >60 [facility] Comment on above: Order Comment: 311-2 Result Comment: mL/m in/1.73m2 CKD-EPI Creatinine Equation (2020) Performed By: #### L 500.2500, L100.0500 #### [facility] [address] [place], [address] Glucose [Mass/Vol] 103 mg/dL High 70-99 [facility] Comment on above: Order Comment: 311-2 Performed By: #### L 500.2500, L100.0500 #### [facility] [address] [place], [address] Potassium [Moles/Vol] 3.9 mmol/L Normal 3.3-5.1 [facility] Comment on above: Order Comment: 311-2 Performed By: #### L 500.2500, L100.0500 #### [facility] [address] [place], [address] Sodium [Moles/Vol] 139 mmol/L Normal 133-145 [facility] Comment on above: Order Comment: 311-2 Performed By: #### L 500.2500, L100.0500 #### [facility] [address] [place], [address] Urea nitrogen [Mass/Vol] 13 mg/dL Normal 4-19 [facility] Comment on above: Order Comment: 311-2 Performed By: #### L 500.2500, L100.0500 #### [facility] [address] [place], [address] CBC-Complete Blood Cnt No Di ffon 09-14-2024 Erythrocyte distribution width (RBC) [Ratio] 13.4 % Normal 11.6-14.6 [facility] Comment on above: Order Comment: 311-2 Performed By: #### L 500.2500, L100.0500 #### [facility] [address] [place], [address] Hematocrit (Bld) [Volume fraction] 38.3 % Normal 37-47 [facility] Comment on above: Order Comment: 311-2 Performed By: #### L 500.2500, L100.0500 #### [facility] [address] [place], [address] Hemoglobin (Bld) [Mass/Vol] 12.1 g/dL Normal 12.0-15.0 [facility] Comment on above: Order Comment: 311-2 Performed By: #### L 500.2500, L100.0500 #### [facility] [address] [place], [address] MCH (RBC) [Entitic mass] 32.0 pg Normal 27.0-32.0 [facility] Comment on above: Order Comment: 311-2 Performed By: #### L 500.2500, L100.0500 #### [facility] [address] [place], [address] MCHC (RBC) [Mass/Vol] 31.6 g/dL Low 32-36 [facility] Comment on above: Order Comment: 311-2 Performed By: #### L 500.2500, L100.0500 #### [facility] [address] [place], [address] MCV (RBC) [Entitic vol] 101.3 fL High 81-99 [facility] Comment on above: Order Comment: 311-2 Performed By: #### L 500.2500, L100.0500 #### [facility] [address] [place], [address] Platelet mean volume (Bld) [Entitic vol] 9.9 fL Normal 6.2-12.0 [facility] Comment on above: Order Comment: 311-2 Performed By: #### L 500.2500, L100.0500 #### [facility] [address] [place], [address] Platelets (Bld) [#/Vol] 274 10*3/uL Normal 150-450 [facility] Comment on above: Order Comment: 311-2 Performed By: #### L 500.2500, L100.0500 #### [facility] [address] [place], [address] RBC (Bld) [#/Vol] 3.78 10*6/uL Low 4.2-5.4 [facility] Comment on above: Order Comment: 311-2 Performed By: #### L 500.2500, L100.0500 #### [facility] [address] [place], [address] RDW SD 50.9 fl High 35.1-43.9 [facility] Comment on above: Order Comment: 311-2 Performed By: #### L 500.2500, L100.0500 #### [facility] [address] [place], [address] WBC (Bld) [#/Vol] 11.4 10*3/uL High 4.4-11.0 [facility] Comment on above: Order Comment: 311-2 Performed By: #### L 500.2500, L100.0500 #### [facility] [address] [place], [address] 36on 09-07-2024 36 Spoke to Nilesh from [facility] and scheduled patient for a follow up on 09/24@10am. Patient has not been seen for quite a while and also is requesting port removal to be scheduled. Normal [facility] 36 Nilesh from [facility] states pt's port was flushed but there was no blood draw back. Patient requested for the port to be removed due to not being used for roughly 1 year. Please contact Nilesh with further questions at [phone] Normal [facility] Progress Noteon 09-06-2024 Progress Note Arrival Note Infusio n Patient is here for port flush Labs [...] appointment and verbalizes understanding. All questions answered. Normal [facility] Thyroid Stim Hormone (TSH)on 08-22-2024 TSH 0.786 uIU/mL Normal 0.300-4.200 [facility] Comment on above: Order Comment: 102.2 Performed By: #### L 501.9520 #### [facility] [address] [place], [address] 37on 08-20-2024 37 YOUR APPOINTMENT TOHetal HAUSER WAS WITH THE [facility], COPD CLINIC, PULMONARY AND SLEEP MEDICINE OFFICE. PLEASE CALL OUR OFFICE AT [phone] for our [place] office location or [phone] for our [place] location, IF YOU HAVE NOT RECEIVED YOUR [...] to make improvements. COVID-19 VACCINATION INFORMATION: PH. [phone] [facility]/CORONAVIRUS /VACCINE [facility] Central Scheduling [phone] [facility] Sleep Scheduling [phone] [facility] Office Visiton 08-20-2024 Follow-up visit [id number] Jace Deluca 1955 F Date Provider Department Center 08/20/2024 ELYSSA GUERRERO [facility] PULM None Family History Problem Relation Age of Onset Colon cancer Neg Hx Ovarian cancer Neg Hx Cancer Mother Comments: breast- to liver Cancer Sister Comments: breast Cancer Father Comments: lung to brain No Known Problems Brother Uterine cancer Neg Hx Family Status - Relation Status Age at Neg Hx Mother Sister Alive Father Brother Alive Level of Service:87351 LA OFFICE/OUTPATIENT ESTABLISHED MOD MDM 30 MIN Reason for Visit and Comments: Hospital Follow-up [832] - COPD,PSA/MSSA/STREP LRTI ESTABLISH PULM OUTPATIENT... Normal [facility] Progress Noteon 08-20-2024 Progress Note [facility] Pulmonary Medicine [address] [place] [address] Date of Service: 08/20/2024 Visit type: An Established patient Chief Complaint/Reason for Referral: Hospital Follow-up (COPD,PSA/MSSA/STREP LRTI/ESTABLISH PULM OUTPATIENT...) SUBJECTIVE History of Present Illness: Gonzalo Deluca ( 1955) is a 68 y.o. female patient, with significant PMH of COPD, emphysema, chronic respiratory failure 3L, pulmonary nodule, sciatica, and tobacco use being seen for pulmonary hospital follow up Admitted [facility] 07/30/2024 - 08/08/2024 pulmonology was consulted for triple bacterial pneumonia, treated for pseudomona, moraxella and Streptoccus, on top of severe pneumonia, with increased oxygen requirements and chronic respiratory failure. Failure to thrive. Chronic resp failure with severe emphysema, 3L baseline O2. Treated with Dulera, Spiriva. Reports significant weight loss of 40 lbs over the past few months. Currently at [facility], group home. Presents today with son, states breathing is better than before the hospital. Wearing 3L supplemental continuous oxygen today. SpO2 is 92%, does not appear distressed. Staying at [facility] for group home and has been beneficial. Follows with palliative care for dyspnea, taking oxycodone and has been helping. Reports has gained some weight since breathing has improved and being at group home facility. Expressed to keep up whatever it [...] SIGNS: BP 105/67 Pulse 92 Temp 36 ?C (96.8 ?F) (Temporal) Ht 5' 4 (1.626 m) Wt 93 lb 3.2 oz (42.3 kg) SpO2 91% Comment: 4Lp BMI 16.00 kg/m? PHYSICAL EXAM: Physical Exam Constitutional: General: She [...] thoracic spine with kyphosis of the spine simil (more content not included)... Normal [facility] Basic Metabolic Profile (BMP )on 08-15-2024 BUN/CRE 28.5 RATIO High 10-20 [facility] Comment on above: Order Comment: 102-2 Performed By: #### L 100.0500, L500.2500 #### [facility] [address] [place], [address] Calcium [Mass/Vol] 8.8 mg/dL Normal 7.6-11.0 [facility] Comment on above: Order Comment: 102-2 Performed By: #### L 100.0500, L500.2500 #### [facility] [address] [place], [address] Chloride [Moles/Vol] 103 mmol/L Normal 98-108 [facility] Comment on above: Order Comment: 102-2 Performed By: #### L 100.0500, L500.2500 #### [facility] [address] [place], [address] CO2 [Moles/Vol] 31.7 mmol/L Normal 21.0-32.0 [facility] Comment on above: Order Comment: 102-2 Performed By: #### L 100.0500, L500.2500 #### [facility] [address] [place], [address] Creatinine [Mass/Vol] 0.47 mg/dL Low 0.70-1.20 [facility] Comment on above: Order Comment: 102-2 Performed By: #### L 100.0500, L500.2500 #### [facility] [address] [place], [address] GAP 7 Normal 5-15 [facility] Comment on above: Order Comment: 102-2 Performed By: #### L 100.0500, L500.2500 #### [facility] [address] [place], [address] GFR/1.73 sq M.predicted among non-blacks MDRD (S/P/Bld) [Vol rate/Area] 104 mL/min/{1.73_m2} Normal >60 [facility] Comment on above: Order Comment: 102-2 Result Comment: mL/m in/1.73m2 CKD-EPI Creatinine Equation (2020) Performed By: #### L 100.0500, L500.2500 #### [facility] [address] [place], [address] Glucose [Mass/Vol] 85 mg/dL Normal 70-99 [facility] Comment on above: Order Comment: 102-2 Performed By: #### L 100.0500, L500.2500 #### [facility] [address] [place], [address] Potassium [Moles/Vol] 3.9 mmol/L Normal 3.3-5.1 [facility] Comment on above: Order Comment: 102-2 Performed By: #### L 100.0500, L500.2500 #### [facility] [address] [place], [address] Sodium [Moles/Vol] 142 mmol/L Normal 133-145 [facility] Comment on above: Order Comment: 102-2 Performed By: #### L 100.0500, L500.2500 #### [facility] [address] [place], [address] Urea nitrogen [Mass/Vol] 13 mg/dL Normal 4-19 [facility] Comment on above: Order Comment: 102-2 Performed By: #### L 100.0500, L500.2500 #### [facility] [address] [place], [address] CBC-Complete Blood Cnt No Di ffon 08-15-2024 Erythrocyte distribution width (RBC) [Ratio] 14.0 % Normal 11.6-14.6 [facility] Comment on above: Order Comment: 102-2 Performed By: #### L 100.0500, L500.2500 #### [facility] [address] [place], [address] Hematocrit (Bld) [Volume fraction] 34.7 % Low 37-47 [facility] Comment on above: Order Comment: 102-2 Performed By: #### L 100.0500, L500.2500 #### [facility] [address] [place], [address] Hemoglobin (Bld) [Mass/Vol] 10.4 g/dL Low 12.0-15.0 [facility] Comment on above: Order Comment: 102-2 Performed By: #### L 100.0500, L500.2500 #### [facility] [address] [place], [address] MCH (RBC) [Entitic mass] 31.2 pg Normal 27.0-32.0 [facility] Comment on above: Order Comment: 102-2 Performed By: #### L 100.0500, L500.2500 #### [facility] [address] [place], [address] MCHC (RBC) [Mass/Vol] 30.0 g/dL Low 32-36 [facility] Comment on above: Order Comment: 102-2 Performed By: #### L 100.0500, L500.2500 #### [facility] [address] [place], [address] MCV (RBC) [Entitic vol] 104.2 fL High 81-99 [facility] Comment on above: Order Comment: 102-2 Performed By: #### L 100.0500, L500.2500 #### [facility] [address] [place], [address] Platelet mean volume (Bld) [Entitic vol] 9.8 fL Normal 6.2-12.0 [facility] Comment on above: Order Comment: 102-2 Performed By: #### L 100.0500, L500.2500 #### [facility] [address] [place], [address] Platelets (Bld) [#/Vol] 236 10*3/uL Normal 150-450 [facility] Comment on above: Order Comment: 102-2 Performed By: #### L 100.0500, L500.2500 #### [facility] [address] [place], [address] RBC (Bld) [#/Vol] 3.33 10*6/uL Low 4.2-5.4 [facility] Comment on above: Order Comment: 102-2 Performed By: #### L 100.0500, L500.2500 #### [facility] [address] [place], [address] RDW SD 54.0 fl High 35.1-43.9 [facility] Comment on above: Order Comment: 102-2 Performed By: #### L 100.0500, L500.2500 #### [facility] [address] [place], [address] WBC (Bld) [#/Vol] 9.4 10*3/uL Normal 4.4-11.0 [facility] Comment on above: Order Comment: 102-2 Performed By: #### L 100.0500, L500.2500 #### [facility] [address] [place], [address] [id number] 08-10-2024 [id number] Patient Choice Patient Name: GONZALO DELUCA Date of : 1955 [facility] 30on 08-08-2024 30 Problem: Knowledge Deficit Goal: Patient/family/caregiv er demonstrates understanding of disease process, treatment plan, medications, and discharge instructions 08/08/2024 044 by Sadie Rodriguez RN Outcome: [...] 0447 by Sadie Rodriguez RN Outcome: Progressing 08/08/2024315 by Sadie Rodriguez RN Outcome: Not Progressing Goal: Promote nutritional intake 08/08/2024 044 by Sadie Rodriguez RN Outcome: Progressing 08/08/2024315 by Sadie Rodriguez RN Outcome: Not Progressing Normal [facility] 30 Problem: Potential f or Compromised Skin Integrity Goal: Skin Integrity is Maintained or Improved Outcome: Not Progressing Problem: Urinary Incontinence Goal: Perineal skin integrity is maintained or improved Outcome: Not Progressing Problem: Discharge Barriers Goal: My discharge needs are met Outcome: Not Progressing Problem: Problem Interventions Goal: Assess Nutritional Intake Outcome: Not Progressing Goal: Dietary Supplements Outcome: Not Progressing Goal: Promote nutritional intake Outcome: Not Progressing Normal [facility] [id number] 08-08-2024 [id number] Rounds this am DCP: [facility] Called to notify Karishma/dtr: [facility] has overturned the Denial and is approved to go to [facility] Transport arranged for 330pm. Tasked to PAINT PREP TECHNICIAN to complete 7,000 Send AVS and Mar to facility Facility is updated RN and MD notified [facility] [phone] MAR, Discharge med list transmitted and 7000 in HENs to [facility] via [facility] per TCC request. [facility] BASIC METABOLIC PANELon 05-2 Anion gap [Moles/Vol] 8 mmol/L Normal 3-13 [facility] Comment on above: Performed By: #### L [id number] ####Tug Master: HANS PAULSON ([phone])[facility] ([facility] Calcium [Mass/Vol] 8.6 mg/dL Low 8.8-10.0 [facility] Comment on above: Performed By: #### L [id number] ####Tug Master: HANS PAULSON ([phone])[facility] ([facility])[address] [place] [address] [place] Chloride [Moles/Vol] 101 mmol/L Normal 98-107 [facility] Comment on above: Performed By: #### L [id number] ####Tug Master: HANS PAULSON ([phone])[facility] ([facility])[address] [place] [address] [place] CO2 [Moles/Vol] 32 mmol/L High 23-31 [facility] Comment on above: Performed By: #### L [id number] ####Tug Master: HANS PAULSON ([phone])[facility] ([facility])[address] Creatinine [Mass/Vol] 0.63 mg/dL Normal 0.57-1.11 [facility] Comment on above: Performed By: #### L [id number] ####Tug Master: HANS PAULSON ([phone])[facility] GLOMERULAR FILTRATION RATE ML/MIN/1.73 SQ M.PREDICTED >90.0 Normal >60.0 [facility] Comment on above: Result Comment: Calc ulation based on the Chronic Kidney Disease Epidemiology Collaboration (CKD-EPI) equation refit without adjustment for race Performed By: #### L [id number] ####Tug Master: HANS PAULSON ([phone])[facility] ([facility])[address] Glucose [Mass/Vol] 99 mg/dL Normal 82-115 [facility] Comment on above: Performed By: #### L [id number] ####Tug Master: HANS PAULSON ([phone])[facility] ([facility])[address] Potassium [Moles/Vol] 3.9 mmol/L Normal 3.5-5.1 [facility] Comment on above: Result Comment: [facility] potassium values may be up to 0.5 mmol/L lower than serum values. Performed By: #### L [id number] ####Tug Master: HANS PUALSON ([phone])[facility] ([facility] [place] [address] [place] Sodium [Moles/Vol] 141 mmol/L Normal 136-145 [facility] Comment on above: Performed By: #### L [id number] ####Tug Master: HANS PAULSON ([phone])[facility] ([facility] Urea nitrogen [Mass/Vol] 22 mg/dL Normal 9-23 [facility] Comment on above: Performed By: #### L [id number] ####Tug Master: HANS PAULSON ([phone])[facility] ([facility])[address] Basic metabolic 1998 panelon 08-08-2024 Anion gap [Moles/Vol] 8 mmol/L 3 - 13 mmol/L [facility] Calcium [Mass/Vol] 8.6 mg/dL Low 8.8 - 10. 0 mg/dL [facility] Chloride [Moles/Vol] 101 mmol/L 98 - 10 7 mmol/L [facility] CO2 [Moles/Vol] 32 mmol/L High 23 - 31 mmol/L [facility] Creatinine [Mass/Vol] 0.63 mg/dL 0.57 - 1.11 mg/dL [facility] GFR/1.73 sq M.predicted (S/P/Bld) [Vol rate/Area] - PINF [facility] Comment on above: Calculation based on the Chronic Kidney Disease Epidemiology Collaboration (CKD-EPI) equation refit without adjustment for race Glucose [Mass/Vol] 99 mg/dL 82 - 115 mg/dL [facility] Interpretation and review of laboratory results Abnormal [facility] Potassium [Moles/Vol] 3.9 mmol/L 3.5 - 5.1 mmol/L [facility] Comment on above: Plasma potassium martín ues may be up to 0.5 mmol/L lower than serum values. Sodium [Moles/Vol] 141 mmol/L 136 - 145 mmol/L [facility] Urea nitrogen [Mass/Vol] 22 mg/dL 9 - 23 mg/d L [facility] CBC W Auto Differential pane l (Bld)on 08-08-2024 Basophils (Bld) [#/Vol] 0 10*3/uL 0.0 - 0.2 10*3/uL [facility] Basophils/100 WBC (Bld) 0.2 % 0.0 - 2.0 % [facility] Eosinophils (Bld) [#/Vol] 0.4 10*3/uL 0.0 - 0.5 10*3/uL [facility] Eosinophils/100 WBC (Bld) 2.9 % 0.0 - 6.0 % [facility] Erythrocyte distribution width (RBC) [Ratio] 14.6 % 11.5 - 15.0 % [facility] Hematocrit (Bld) [Volume fraction] 33.7 % Low 35.0 - 47.0 % [facility] Hemoglobin (Bld) [Mass/Vol] 10.4 g/dL Low 11.7 - 16.0 g/dL [facility] Immature granulocytes (Bld) [#/Vol] 0 10*3/uL NINF - 0.1 10*3/uL [facility] Immature granulocytes/100 WBC (Bld) 0.3 % 0.0 - 2.0 % [facility] Interpretation and review of laboratory results Abnormal [facility] Lymphocytes (Bld) [#/Vol] 1.1 10*3/uL 1.0 - 4.3 10*3/uL [facility] Lymphocytes/100 WBC (Bld) 9 % Low 15.0 - 45.0 % [facility] MCH (RBC) [Entitic mass] 31.3 pg 26. 0 - 34.0 pg [facility] MCHC (RBC) [Mass/Vol] 30.9 % 30.5 - 36.0 % [facility] MCV (RBC) [Entitic vol] 101.5 fL High 77.0 - 99.0 fL [facility] Monocytes (Bld) [#/Vol] 1.2 10*3/uL High 0.0 - 0.9 10*3/uL [facility] Monocytes/100 WBC (Bld) 9.6 % 5.0 - 13.0 % [facility] Neutrophils (Bld) [#/Vol] 9.8 10*3/uL High 1.8 - 7.5 10*3/uL [facility] Neutrophils/100 WBC (Bld) 78 % 38.0 - 82.0 % [facility] Nucleated RBC/100 WBC (Bld) [Ratio] 0 % [facility] Platelet mean volume (Bld) [Entitic vol] 9.8 fL 9.0 - 12.7 fL [facility] Platelets (Bld) [#/Vol] 192 10*3/uL 140 - 440 10*3/uL [facility] RBC (Bld) [#/Vol] 3.32 10*6/uL Low 3.80 - 5.2 0 10*6/uL [facility] WBC (Bld) [#/Vol] 12.6 10*3/uL High 3.6 - 10.7 10*3/uL [facility] CBC WITH AUTO DIFFERENTIALon 08-08-2024 Basophils (Bld) [#/Vol] 0.0 10*3/uL Normal 0.0-0.2 [facility] Comment on above: Performed By: #### L [id number] ####Tug Master: HANS PAULSON ([phone])[facility] ([facility])[address] Basophils/100 WBC (Bld) 0.2 % Normal 0.0-2.0 [facility] Comment on above: Performed By: #### L [id number] ####Tug Master: HANS PAULSON ([phone])[facility] [place] ([facility])[address] Eosinophils (Bld) [#/Vol] 0.4 10*3/uL Normal 0.0-0.5 [facility] Comment on above: Performed By: #### L [id number] ####Tug Master: HANS PAULSON ([phone])[facility] [place] ([facility])[address] Eosinophils/100 WBC (Bld) 2.9 % Normal 0.0-6.0 [facility] Comment on above: Performed By: #### L [id number] ####Tug Master: HANS ALCANTARESCOBAR ([phone])[facility] [place] ([facility])[address] Erythrocyte distribution width (RBC) [Ratio] 14.6 % Normal 11.5-15.0 [facility] Comment on above: Performed By: #### L [id number] ####Tug Master: HANS PAULSON ([phone])[facility] [place] ([facility])[address] Hematocrit (Bld) [Volume fraction] 33.7 % Low 35.0-47.[address] [facility] Comment on above: Performed By: #### L [id number] ####Tug Master: HANS PAULSON ([phone])[facility] [place] ([facility])[address] Hemoglobin (Bld) [Mass/Vol] 10.4 g/dL Low 11.7-16.[address] [facility] Comment on above: Performed By: #### L [id number] ####Tug Master: HANS PAULSON ([phone])[facility] [place] ([facility])[address] IMMATURE GRANS % 0.3 % Normal 0.0-2.0 [facility] Comment on above: Performed By: #### L [id number] ####Tug Master: HANS PAULSON ([phone])[facility] ([facility])[address] IMMATURE GRANS ABSOLUTE 0.0 10*3/uL Normal <0.[address] [facility] Comment on above: Performed By: #### L [id number] ####Tug Master: HANS PAULSON ([phone])[facility] ([facility])[address] Lymphocytes (Bld) [#/Vol] 1.1 10*3/uL Normal 1.0-4.3 [facility] Comment on above: Performed By: #### L [id number] ####Tug Master: HANS PAULSON ([phone])[facility] [place] ([facility])[address] Lymphocytes/100 WBC (Bld) 9.0 % Low 15.0-45.[address] [facility] Comment on above: Performed By: #### L [id number] ####Tug Master: HANS PAULSON ([phone])[facility] [place] ([facility])[address] MCH (RBC) [Entitic mass] 31.3 pg Normal 26.0-34.[address] [facility] Comment on above: Performed By: #### L [id number] ####Tug Master: HANS PAULSON ([phone])[facility] ([facility])[address] MCHC 30.9 % Normal 30.5-36.0 [facility] Comment on above: Performed By: #### L [id number] ####Tug Master: HANS PAULSON ([phone])[facility] [place] ([facility])[address] MCV (RBC) [Entitic vol] 101.5 fL High 77.0-99.0 [facility] Comment on above: Performed By: #### L [id number] ####Tug Master: HANS LORENE ([phone])[facility] ([facility])[address] Monocytes (Bld) [#/Vol] 1.2 10*3/uL High 0.0-0.9 [facility] Comment on above: Performed By: #### L [id number] ####Tug Master: HANS LORENE ([phone])[facility] ([facility])[address] Monocytes/100 WBC (Bld) 9.6 % Normal 5.0-13.0 [facility] Comment on above: Performed By: #### L [id number] ####Tug Master: HANS WALDROPIVELISSE ([phone])[facility] [place] ([facility])[address] NEUTROPHILS ABSOLUTE 9.8 10*3/uL High 1.8-7.5 [facility] Comment on above: Performed By: #### L [id number] ####Tug Master: HANS LORENE ([phone])[facility] ([facility])[address] Neutrophils/100 WBC (Bld) 78.0 % Normal 38.0-82.0 [facility] Comment on above: Performed By: #### L [id number] ####Tug Master: HANS LORENE ([phone])[facility] [place] ([facility])[address] NRBC 0.0 /100 WBCs Normal 0.0-2.0 [facility] Comment on above: Performed By: #### L [id number] ####Tug Master: HANS PAULSON ([phone])[facility] [place] ([facility])[address] Platelet mean volume (Bld) [Entitic vol] 9.8 fL Normal 9.0-12.7 [facility] Comment on above: Performed By: #### L [id number] ####Tug Master: HANS PAULSON ([phone])[facility] ([facility])[address] Platelets (Bld) [#/Vol] 192 10*3/uL Normal 140-440 [facility] Comment on above: Performed By: #### L [id number] ####Tug Master: HANS PAULSON ([phone])[facility] ([facility])[address] RBC (Bld) [#/Vol] 3.32 10*6/uL Low 3.80-5.[address] [facility] Comment on above: Performed By: #### L [id number] ####Tug Master: HANS PAULSON ([phone])[facility] ([facility])[address] [place] [address] WBC (Bld) [#/Vol] 12.6 10*3/uL High 3.6-10.7 [facility] Comment on above: Performed By: #### L [id number] ####Tug Master: HANS PAULSON ([phone])[facility] ([facility])[address] COMPLETE URINALYSIS WITH REF FAMILIA TO CULTUREon 08-08-2024 BACTERIA (#/HPF) IN URINE Negative Normal Negative [facility] Comment on above: Performed By: #### L [id number] ####Tug Master: HANS PAULSON ([phone])[facility] ([facility])[address] BILIRUBIN, TOTAL PRESENCE IN URINE Negative Normal Negative [facility] Comment on above: Performed By: #### L [id number] ####Tug Master: HANS PAULSON ([phone])[facility] ([facility])[address] Clarity (U) Clear Normal Clear [facility] Comment on above: Performed By: #### L [id number] ####Tug Master: HANS PAULSON ([phone])[facility] ([facility])[address] Color (U) Yellow Normal Lt. Yellow [facility] Comment on above: Performed By: #### L [id number] ####Tug Master: HANS PAULSON ([phone])[facility] ([facility])[address] GLUCOSE (MG/DL) IN URINE Normal Normal Normal (<70 ) [facility] Comment on above: Performed By: #### L [id number] ####Tug Master: HANS PAULSON ([phone])[facility] ([facility])[address] HEMOGLOBIN PRESENCE IN URINE Negative Normal Negative [facility] Comment on above: Performed By: #### L [id number] ####Tug Master: HANS PAULSON ([phone])[facility] ([facility])[address] Ketones Ql (U) Negative Normal Negative [facility] Comment on above: Performed By: #### L [id number] ####Tug Master: HANS PAULSON ([phone])[facility] ([facility])[address] LEUKOCYTE ESTERASE PRESENCE IN URINE BY TEST STRIP Negative Normal Negative [facility] Comment on above: Performed By: #### L [id number] ####Tug Master: HANS PAULSON ([phone])[facility] (HLAB)[address] [place] [address] [place] MUCUS (#/LPF) IN URINE SEDIMENT Few Normal Negative [facility] Comment on above: Performed By: #### L [id number] ####Tug Master: HANS PAULSON ([phone])[facility] [place] ([facility])[address] NITRITE PRESENCE IN URINE Negative Normal Negative [facility] Comment on above: Performed By: #### L [id number] ####Tug Master: HANS PAULSON ([phone])[facility] ([facility])[address] pH (U) 6.0 [pH] Normal 5.0-8.0 [facility] Comment on above: Performed By: #### L [id number] ####Tug Master: HANS PAULSON ([phone])[facility] ([facility])[address] Protein (U) [Mass/Vol] 20 mg/dL Abnormal Negative [facility] Comment on above: Performed By: #### L [id number] ####Tug Master: HANS PAULSON ([phone])[facility] ([facility])[address] RBC (#/HPF) IN URINE SEDIMENT 0-2 Normal 0-2 [facility] Comment on above: Performed By: #### L [id number] ####Tug Master: HANS PAULSON ([phone])[facility] ([facility])[address] Specific gravity (U) [Rel density] 1.026 Normal 1.005-1.030 [facility] Comment on above: Result Comment: KYM Gonzalez COMMENTS: A specimen with <=10 WBC is not consistent with inflammation. This specimen will not reflex to a urine culture. Performed By: #### L [id number] ####Tug Master: HANS PAULSON ([phone])[facility] ([facility])[address] SQUAMOUS EPITHELIAL CELLS (#/HPF) IN URINE SEDIMENT 0-2 Normal 3-5 [facility] Comment on above: Performed By: #### L [id number] ####Tug Master: HANS PAULSON ([phone])[facility] ([facility])[address] UROBILINOGEN (MG/DL) IN URINE Normal Normal Normal (0-1) [facility] Comment on above: Performed By: #### L [id number] ####Tug Master: HANS PAULSON ([phone])[facility] ([facility])[address] WBC (LEUKOCYTE) (#/HPF) IN URINE SEDIMENT 3-5 Normal 0-5 [facility] Comment on above: Performed By: #### L [id number] ####Tug Master: HANS PAULSON ([phone])[facility] ([facility] [place] [address] Nursing Noteon 08-08-2024 Nursing Note Called report to [facility]. Pickup scheduled for 3:30pm. Normal [facility] Nursing Note Wound Care consulted for Pressure Injury Prevention. Pt's Jeri score= 17 on 08/08 Pt's pressure points assessed. Pt stood independently for posterior assessment. Pt's Heels, Buttocks/coccyx, Back, Right elbow, Occiput and ears all intact. Cast in place to left upper extremity. [place] and healed area noted to coccyx. [place] and blanchable tissues noted to bilateral heels. [...] any questions or concerns. Rosalina Cross RN Normal [facility] Progress Noteon 08-08-2024 Progress Note Patient chart review ed and being rounded on. Note to follow. 6:29 AM 08/08/24 Rena Beverly MD Division of Hospitalist Medicine [facility] Normal [facility] Urinalysis complete panel (U )Ordered By: Ziyad Ruiz on 08-08-2024 Bacteria LM.HPF (Urine sed) [#/Area] Negative Negative /HPF [facility] Bilirubin Ql (U) Negative Negative mg/dL [facility] Clarity (U) Clear Clear [facility] Color (U) Yellow Lt. Yellow [facility] Epithelial cells.squamous LM.HPF (Urine sed) [#/[facility]) Normal Normal (<70) mg/dL [facility] Hemoglobin Ql (U) Negative Negative mg/dL [facility] Interpretation and review of laboratory results Abnormal [facility] Ketones (U) [Mass/Vol] Negative Negat kenton mg/dL [facility] Leukocyte esterase Test strip Ql (U) Negative Negative Sandra/uL [facility] Mucus LM.HPF (Urine sed) [#/Area] Few Negative /LPF [facility] Nitrite Ql (U) Negative Negative [facility] th pH (U) 6.0 [pH] 5.0 - 8.0 pH [facility] Protein (U) [Mass/Vol] 20 mg/dL Abnormal Negative [facility] RBC LM.HPF (Urine sed) [#/Area] 0-2 [facility] Specific gravity (U) [Rel density] 1.026 1.005 - 1.030 [facility] Urobilinogen (U) [Mass/Vol] Normal Normal (0-1) mg/dL [facility] WBC LM.HPF (Urine sed) [#/Area] 3-5 [facility] A specimen with <=10 WBC is not consistent with inflammation. This specimen will not reflex to a urine culture. [facility] XR Chest 2 Viewson No significant change compared to the prior exam. Report Dictated on Electronically Signed By: Pawan Cordova MD Electronically Signed Date/Time: 08/08/2024 10:02 AM EDT [facility] Patient Name: GONZALO DELUCA : 1955 [...] the spine similar to prior CT imaging. [facility] Pawan Cordova MD - 08/08/2024 Patient Name: GONZALO DELUCA : 1955 Exam [...] Electronically Signed Date/Time: 08/08/2024 10:02 AM EDT [facility] Radiology Study observation (narrative) [facility] XR Chest 2 ViewsOrdered By: Pawan Cordova on 08-08-2024 [facility] Work Phone: BASIC METABOLIC PANELon 07-20 Anion gap [Moles/Vol] 7 mmol/L Normal 3-13 [facility] Comment on above: Performed By: #### L [id number] ####Tug Master: HANS PAULSON ([phone])[facility] [place] ([facility])[address] Calcium [Mass/Vol] 9.3 mg/dL Normal 8.8-10.0 [facility] Comment on above: Performed By: #### L [id number] ####Tug Master: HANS PAULSON ([phone])[facility] ([facility])[address] Chloride [Moles/Vol] 101 mmol/L Normal 98-107 [facility] Comment on above: Performed By: #### L [id number] ####Tug Master: HANS PAULSON ([phone])[facility] [place] ([facility])[address] CO2 [Moles/Vol] 33 mmol/L High 23-31 [facility] Comment on above: Performed By: #### L [id number] ####Tug Master: HANS PAULSON ([phone])[facility] [place] ([facility])[address] Creatinine [Mass/Vol] 0.59 mg/dL Normal 0.57-1.11 [facility] Comment on above: Performed By: #### L [id number] ####Tug Master: HANS PAULSON ([phone])[facility] ([facility])[address] GLOMERULAR FILTRATION RATE ML/MIN/1.73 SQ M.PREDICTED >90.0 Normal >60.0 [facility] Comment on above: Result Comment: Calc ulation based on the Chronic Kidney Disease Epidemiology Collaboration (CKD-EPI) equation refit without adjustment for race Performed By: #### L [id number] ####Tug Master: HANS PAULSON ([phone])[facility] [place] (HLAB)[address] Glucose [Mass/Vol] 124 mg/dL High 82-115 [facility] Comment on above: Performed By: #### L [id number] ####Tug Master: HANS PAULSON ([phone])[facility] (HLAB)[address] Potassium [Moles/Vol] 3.7 mmol/L Normal 3.5-5.1 [facility] Comment on above: Result Comment: [facility] potassium values may be up to 0.5 mmol/L lower than serum values. Performed By: #### L [id number] ####Tug Master: HANS PAULSON ([phone])[facility] ([facility] Sodium [Moles/Vol] 141 mmol/L Normal 136-145 [facility] Comment on above: Performed By: #### L [id number] ####Tug Master: HANS PAULSON ([phone])[facility] ([facility] Urea nitrogen [Mass/Vol] 28 mg/dL High 9-23 [facility] Comment on above: Performed By: #### L [id number] ####Tug Master: HANS PAULSON ([phone])[facility] ([facility] Basic metabolic 1998 panelon 08-07-2024 Anion gap [Moles/Vol] 7 mmol/L 3 - 13 mmol/L [facility] Calcium [Mass/Vol] 9.3 mg/dL 8.8 - 10. 0 mg/dL [facility] Chloride [Moles/Vol] 101 mmol/L 98 - 10 7 mmol/L [facility] CO2 [Moles/Vol] 33 mmol/L High 23 - 31 mmol/L [facility] Creatinine [Mass/Vol] 0.59 mg/dL 0.57 - 1.11 mg/dL [facility] [employer] GFR/1.73 sq M.predicted (S/P/Bld) [Vol rate/Area] - PINF [facility] Comment on above: Calculation based on the Chronic Kidney Disease Epidemiology Collaboration (CKD-EPI) equation refit without adjustment for race Glucose [Mass/Vol] 124 mg/dL High 82 - 115 mg/dL [facility] Interpretation and review of laboratory results Abnormal [facility] Potassium [Moles/Vol] 3.7 mmol/L 3.5 - 5.1 mmol/L [facility] Comment on above: Plasma potassium martín ues may be up to 0.5 mmol/L lower than serum values. Sodium [Moles/Vol] 141 mmol/L 136 - 145 mmol/L [facility] Urea nitrogen [Mass/Vol] 28 mg/dL High 9 - 23 mg/d L [facility] CBC W Auto Differential pane l (Bld)Ordered By: Crystal Dupont on 08-07-2024 Basophils (Bld) [#/Vol] 0 10*3/uL 0.0 - 0.2 10*3/uL [facility] Basophils/100 WBC (Bld) 0.2 % 0.0 - 2.0 % [facility] Eosinophils (Bld) [#/Vol] 0.3 10*3/uL 0.0 - 0.5 10*3/uL [facility] Eosinophils/100 WBC (Bld) 3.2 % 0.0 - 6.0 % [facility] Erythrocyte distribution width (RBC) [Ratio] 14.3 % 11.5 - 15.0 % [facility] Hematocrit (Bld) [Volume fraction] 33.8 % Low 35.0 - 47.0 % [facility] Hemoglobin (Bld) [Mass/Vol] 10.5 g/dL Low 11.7 - 16.0 g/dL [facility] Immature granulocytes (Bld) [#/Vol] 0 10*3/uL NINF - 0.1 10*3/uL [facility] [employer] Immature granulocytes/100 WBC (Bld) 0.1 % 0.0 - 2.0 % [facility] Interpretation and review of laboratory results Abnormal [facility] Lymphocytes (Bld) [#/Vol] 1.2 10*3/uL 1.0 - 4.3 10*3/uL [facility] Lymphocytes/100 WBC (Bld) 14.2 % Low 15.0 - 45.0 % [facility] MCH (RBC) [Entitic mass] 31.1 pg 26. 0 - 34.0 pg [facility] MCHC (RBC) [Mass/Vol] 31.1 % 30.5 - 36.0 % [facility] MCV (RBC) [Entitic vol] 100 fL High 77.0 - 99.0 fL [facility] Monocytes (Bld) [#/Vol] 0.8 10*3/uL 0.0 - 0.9 10*3/uL [facility] Monocytes/100 WBC (Bld) 9.6 % 5.0 - 13.0 % [facility] Neutrophils (Bld) [#/Vol] 6.3 10*3/uL 1.8 - 7.5 10*3/uL [facility] Neutrophils/100 WBC (Bld) 72.7 % 38.0 - 82.0 % [facility] Nucleated RBC/100 WBC (Bld) [Ratio] 0 % [facility] Platelet mean volume (Bld) [Entitic vol] 9.9 fL 9.0 - 12.7 fL [facility] Platelets (Bld) [#/Vol] 189 10*3/uL 140 - 440 10*3/uL [facility] RBC (Bld) [#/Vol] 3.38 10*6/uL Low 3.80 - 5.2 0 10*6/uL [facility] WBC (Bld) [#/Vol] 8.7 10*3/uL 3.6 - 10.7 10*3/uL [facility] CBC WITH AUTO DIFFERENTIALon 08-07-2024 Basophils (Bld) [#/Vol] 0.0 10*3/uL Normal 0.0-0.[address] [facility] Comment on above: Performed By: #### L [id number] ####Tug Master: HANS PAULSON ([phone])[facility] [place] [address] Basophils/100 WBC (Bld) 0.2 % Normal 0.0-2.0 [facility] Comment on above: Performed By: #### L [id number] ####Tug Master: HANS WALDROPKimESCOBAR ([phone])[facility] (SBHLAB)[address] Eosinophils (Bld) [#/Vol] 0.3 10*3/uL Normal 0.0-0.[address] [facility] Comment on above: Performed By: #### L [id number] ####Tug Master: HANS ALCANTARESCOBAR ([phone])[facility] (SBHLAB)[address] Eosinophils/100 WBC (Bld) 3.2 % Normal 0.0-6.[address] [facility] Comment on above: Performed By: #### L [id number] ####Tug Master: HANS LORENE ([phone])[facility] [place] (SB[facility])[address] [place] [address] Erythrocyte distribution width (RBC) [Ratio] 14.3 % Normal 11.5-15.0 [facility] Comment on above: Performed By: #### L [id number] ####Tug Master: HANS LORENE ([phone])[facility] ([facility])[address] [place] [address] Hematocrit (Bld) [Volume fraction] 33.8 % Low 35.0-47.[address] [facility] Comment on above: Performed By: #### L [id number] ####Tug Master: HANS PAULSON ([id number])[facility] ([facility])[address] [place] [address] Hemoglobin (Bld) [Mass/Vol] 10.5 g/dL Low 11.7-16.[address] [facility] Comment on above: Performed By: #### L [id number] ####Tug Master: HANS PAULSON ([phone])[facility] (SBHL[facility])[address] [place] [address] IMMATURE GRANS % 0.1 % Normal 0.0-2.0 [facility] Comment on above: Performed By: #### L [id number] ####Tug Master: HANS PAULSON ([phone])[facility] HOS[facility]ITALNorma [facility]PITALMarisa (SBHLAB)[address] IMMATURE GRANS ABSOLUTE 0.0 10*3/uL Normal <0.[address] [facility] Comment on above: Performed By: #### L [id number] ####Tug Master: HANS ALCANTARESCOBAR ([phone])[facility]ITALNorma [facility] (SBHLAB)[address] Lymphocytes (Bld) [#/Vol] 1.2 10*3/uL Normal 1.0-4.[address] [facility] Comment on above: Performed By: #### L [id number] ####Tug Master: HANS PAULSON ([phone])[facility]ITALNorma [facility] (SBHLAB)[address] [place] [address] Lymphocytes/100 WBC (Bld) 14.2 % Low 15.0-45.[address] [facility] Comment on above: Performed By: #### L [id number] ####Tug Master: HANS PAULSON ([phone])[facility]ITALNorma [facility]PITALMarisa (SBHLAB)[address] MCH (RBC) [Entitic mass] 31.1 pg Normal 26.0-34.[address] [facility] Comment on above: Performed By: #### L [id number] ####Tug Master: HANS PAULSON ([id number])[facility]ITALNorma [place] (SBHLAB)[address] [place] [address] MCHC 31.1 % Normal 30.5-36.[address] [facility] Comment on above: Performed By: #### L [id number] ####Tug Master: HANS PAULSON ([phone])[facility]ITALNorm[facility] (SBHLAB)[address] MCV (RBC) [Entitic vol] 100.0 fL High 77.0-99.0 [facility] Comment on above: Performed By: #### L [id number] ####Tug Master: HANS PAULSON ([id number])[facility] (SBHLAB)[address] Monocytes (Bld) [#/Vol] 0.8 10*3/uL Normal 0.0-0.9 [facility] Comment on above: Performed By: #### L [id number] ####Tug Master: HANS PAULSON ([phone])[facility] (SBHLAB)[address] Monocytes/100 WBC (Bld) 9.6 % Normal 5.0-13.0 [facility] Comment on above: Performed By: #### L [id number] ####Tug Master: HANS PAULSON ([phone])[facility] [place] (SBHLAB)[address] NEUTROPHILS ABSOLUTE 6.3 10*3/uL Normal 1.8-7.5 [facility] Comment on above: Performed By: #### L [id number] ####Tug Master: HANS PAULSON ([phone])[facility] [place] (SBHLAB)[address] Neutrophils/100 WBC (Bld) 72.7 % Normal 38.0-82.[address] [facility] Comment on above: Performed By: #### L [id number] ####Tug Master: HANS PAULSON ([phone])[facility] [place] (SBHLAB)[address] NRBC 0.0 /100 WBCs Normal 0.0-2.0 [facility] Comment on above: Performed By: #### L [id number] ####Tug Master: HANS PAULSON ([id number])[facility] [place] (SBHLAB)[address] Platelet mean volume (Bld) [Entitic vol] 9.9 fL Normal 9.0-12.[address] [facility] Comment on above: Performed By: #### L [id number] ####Tug Master: HANS PAULSON ([phone])[facility] (SBHLAB)[address] Platelets (Bld) [#/Vol] 189 10*3/uL Normal 140-[address] [facility] Comment on above: Performed By: #### L [id number] ####Tug Master: HANS PAULSON ([phone])[facility] (SBHLAB)[address] RBC (Bld) [#/Vol] 3.38 10*6/uL Low 3.80-5.[address] [facility] Comment on above: Performed By: #### L [id number] ####Tug Master: HANS PAULSON ([phone])[facility] (SBHLAB)[address] [place] [address] WBC (Bld) [#/Vol] 8.7 10*3/uL Normal 3.6-10.[address] [facility] Comment on above: Performed By: #### L [id number] ####Tug Master: HANS PAULSON ([phone])[facility] ([facility])[address] [place] [address] Progress Noteon 08-07-2024 Progress Note [facility] [address] [place] [address] Patient - Gonzalo Deluca, Age - 68 y.o. 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 She is on Breo ellipta, Spiriva, and [...] Patient Position: Lying) Pulse 77 Temp 36.1 ?C (97 ?F) (Temporal) Resp 18 Ht 5' 4 (1.626 m) Wt 89 lb 1.1 oz (40.4 kg) SpO2 91% BMI 15.29 kg/m? Pulse Ox: SpO2 Av.2 % Min: 90 [...] discharge from pulmonary standpoint. Will sign off (more content not included)... [facility] 30on 08-06-2024 30 Problem: Knowledge Deficit Goal: Patient/family/caregiv er demonstrates understanding of disease process, treatment plan, [...] Problem Interventions Goal: Dietary Supplements Outcome: Progressing Normal [facility] 30 Problem: Knowledge Deficit Goal: Patient/family/caregiv er demonstrates understanding of disease process, treatment plan, [...] My discharge needs are met Outcome: Progressing Normal [facility] 30 Problem: Knowledge Deficit Goal: Patient/family/caregiv er demonstrates understanding of disease process, treatment plan, medications, and discharge instructions Outcome: Progressing Problem: Potential for Compromised Skin Integrity Goal: Skin Integrity is Maintained or Improved Outcome: Progressing Problem: Potential for Compromised Skin Integrity Goal: Nutritional status is improving Outcome: Progressing Problem: Urinary Incontinence Goal: Perineal skin integrity is maintained or improved Outcome: Progressing Normal [facility] [id number] 08-06-2024 [id number] Spoke with pt nikolas gonzalez in the day to to determine if she wants to appeal the P2P decision denying SNF. [facility] in the process of trying to get to [facility] through her waiver services. She started [...] Appeals number given to pt to call: [phone]. Appeals fax number: [phone]. Pt was calling as this CM was walking out of her room. virtual classroom manager to follow and assist as needed. [facility] [phone] Spoke with patients daughter Karishma, regarding dc plans, who states that they would like to ideally get patient into group home and then get patient over to [facility] under Medicaid. This will require an insurance appeal for the group home facility. Shared this discussion with the [facility] BASIC METABOLIC PANELon 05-1 Anion gap [Moles/Vol] 7 mmol/L Normal 3-13 [facility] Comment on above: Performed By: #### L [id number] ####Tug Master: HANS PAULSON ([id number])[facility] (SBAB)[address] Calcium [Mass/Vol] 8.9 mg/dL Normal 8.8-10.0 [facility] Comment on above: Performed By: #### L [id number] ####Tug Master: HANS PAULSON ([phone])[facility] (SBHLAB)[address] Chloride [Moles/Vol] 101 mmol/L Normal 98-107 [facility] Comment on above: Performed By: #### L [id number] ####Tug Master: HANS PAULSON ([phone])[facility] (SBHLAB)[address] CO2 [Moles/Vol] 33 mmol/L High 23-31 [facility] Comment on above: Performed By: #### L [id number] ####Tug Master: HANS PAULSON ([phone])[facility] (SBHLAB)[address] Creatinine [Mass/Vol] 0.56 mg/dL Low 0.57-1.11 [facility] Comment on above: Performed By: #### L AB15 ####Tug Master: HANS PAULSON ([phone])[facility] (SBHLAB)[address] GLOMERULAR FILTRATION RATE ML/MIN/1.73 SQ M.PREDICTED >90.0 Normal >60.0 [facility] Comment on above: Result Comment: Calc ulation based on the Chronic Kidney Disease Epidemiology Collaboration (CKD-EPI) equation refit without adjustment for race Performed By: #### L AB15 ####Tug Master: HANS PAULSON ([phone])[facility] ([facility])[address] Glucose [Mass/Vol] 93 mg/dL Normal 82-115 [facility] Comment on above: Performed By: #### L [id number] ####Tug Master: HANS PAULSON ([phone])[facility] ([facility])[address] Potassium [Moles/Vol] 3.8 mmol/L Normal 3.5-5.1 [facility] Comment on above: Result Comment: [facility] potassium values may be up to 0.5 mmol/L lower than serum values. Performed By: #### L AB15 ####Tug Master: HANS PAULSON ([phone])[facility] ([facility])[address] Sodium [Moles/Vol] 141 mmol/L Normal 136-145 [facility] Comment on above: Performed By: #### L AB15 ####Tug Master: HANS PAULSON ([phone])[facility] ([facility])[address] [place] [address] [place] Urea nitrogen [Mass/Vol] 27 mg/dL High 9-23 [facility] Comment on above: Performed By: #### L AB15 ####Tug Master: HANS PAULSON ([phone])[facility] ([facility])[address] Basic metabolic 1998 panelon 08-06-2024 Anion gap [Moles/Vol] 7 mmol/L 3 - 13 mmol/L [facility] Calcium [Mass/Vol] 8.9 mg/dL 8.8 - 10. 0 mg/dL [facility] Chloride [Moles/Vol] 101 mmol/L 98 - 10 7 mmol/L [facility] CO2 [Moles/Vol] 33 mmol/L High 23 - 31 mmol/L [facility] Creatinine [Mass/Vol] 0.56 mg/dL Low 0.57 - 1.11 mg/dL [facility] GFR/1.73 sq M.predicted (S/P/Bld) [Vol rate/Area] - PINF [facility] Comment on above: Calculation based on the Chronic Kidney Disease Epidemiology Collaboration (CKD-EPI) equation refit without adjustment for race Glucose [Mass/Vol] 93 mg/dL 82 - 115 mg/dL [facility] Interpretation and review of laboratory results Abnormal [facility] Potassium [Moles/Vol] 3.8 mmol/L 3.5 - 5.1 mmol/L [facility] Comment on above: Plasma potassium martín ues may be up to 0.5 mmol/L lower than serum values. Sodium [Moles/Vol] 141 mmol/L 136 - 145 mmol/L [facility] Urea nitrogen [Mass/Vol] 27 mg/dL High 9 - 23 mg/d L [facility] CBC W Auto Differential pane l (Bld)Ordered By: Hakeem Cruz on 08-06-2024 Basophils (Bld) [#/Vol] 0.1 10*3/uL 0.0 - 0.2 10*3/uL [facility] Basophils/100 WBC (Bld) 0.6 % 0.0 - 2.0 % [facility] Eosinophils (Bld) [#/Vol] 0.3 10*3/uL 0.0 - 0.5 10*3/uL [facility] Eosinophils/100 WBC (Bld) 3.3 % 0.0 - 6.0 % [facility] Erythrocyte distribution width (RBC) [Ratio] 14 % 11.5 - 15.0 % [facility] Hematocrit (Bld) [Volume fraction] 35.3 % 35.0 - 47.0 % [facility] Hemoglobin (Bld) [Mass/Vol] 10.7 g/dL Low 11.7 - 16.0 g/dL [facility] Immature granulocytes (Bld) [#/Vol] 0 10*3/uL NINF - 0.1 10*3/uL [facility] Immature granulocytes/100 WBC (Bld) 0.4 % 0.0 - 2.0 % [facility] Interpretation and review of laboratory results Abnormal [facility] Lymphocytes (Bld) [#/Vol] 1.4 10*3/uL 1.0 - 4.3 10*3/uL [facility] Lymphocytes/100 WBC (Bld) 18.1 % 15.0 - 45.0 % [facility] MCH (RBC) [Entitic mass] 30.8 pg 26. 0 - 34.0 pg [facility] MCHC (RBC) [Mass/Vol] 30.3 % Low 30.5 - 36.0 % [facility] MCV (RBC) [Entitic vol] 101.7 fL High 77.0 - 99.0 fL [facility] Monocytes (Bld) [#/Vol] 0.8 10*3/uL 0.0 - 0.9 10*3/uL [facility] Monocytes/100 WBC (Bld) 9.6 % 5.0 - 13.0 % [facility] Neutrophils (Bld) [#/Vol] 5.3 10*3/uL 1.8 - 7.5 10*3/uL [facility] Neutrophils/100 WBC (Bld) 68 % 38.0 - 82.0 % [facility] Nucleated RBC/100 WBC (Bld) [Ratio] 0 % [facility] Platelet mean volume (Bld) [Entitic vol] 9.6 fL 9.0 - 12.7 fL [facility] Platelets (Bld) [#/Vol] 166 10*3/uL 140 - 440 10*3/uL [facility] RBC (Bld) [#/Vol] 3.47 10*6/uL Low 3.80 - 5.2 0 10*6/uL [facility] WBC (Bld) [#/Vol] 7.8 10*3/uL 3.6 - 10.7 10*3/uL [facility] CBC WITH AUTO DIFFERENTIALon 08-06-2024 Basophils (Bld) [#/Vol] 0.1 10*3/uL Normal 0.0-0.2 [facility] Comment on above: Performed By: #### L [id number] ####Tug Master: HANS ALCANTARESCOBAR ([phone])[facility] (SBHLAB)[address] Basophils/100 WBC (Bld) 0.6 % Normal 0.0-2.0 [facility] Comment on above: Performed By: #### L [id number] ####Tug Master: HANS WALDROPIVELISSE ([phone])[facility] (SBHLAB)[address] Eosinophils (Bld) [#/Vol] 0.3 10*3/uL Normal 0.0-0.[address] [facility] Comment on above: Performed By: #### L [id number] ####Tug Master: HANS WALDROPIVELISSE ([phone])[facility] (SBHLAB)[address] [place] [address] Eosinophils/100 WBC (Bld) 3.3 % Normal 0.0-6.[address] [facility] Comment on above: Performed By: #### L [id number] ####Tug Master: HANS WALDROPIVELISSE ([phone])[facility] (SBHL[facility])[address] Erythrocyte distribution width (RBC) [Ratio] 14.0 % Normal 11.5-15.[address] [facility] Comment on above: Performed By: #### L [id number] ####Tug Master: HANS PAULSON ([phone])[facility] (SBHLAB)[address] [place] [address] Hematocrit (Bld) [Volume fraction] 35.3 % Normal 35.0-47.[address] [facility] Comment on above: Performed By: #### L [id number] ####Tug Master: HANS ALCANTARESCOBAR ([phone])[facility] (SBHLAB)[address] [place] [address] Hemoglobin (Bld) [Mass/Vol] 10.7 g/dL Low 11.7-16.[address] [facility] Comment on above: Performed By: #### L [id number] ####Tug Master: HANS PAULSON ([phone])[facility] (SBHL[facility])[address] IMMATURE GRANS % 0.4 % Normal 0.0-2.0 [facility] Comment on above: Performed By: #### L [id number] ####Tug Master: HANS PAULSON ([phone])[facility] (SBHL[facility])[address] IMMATURE GRANS ABSOLUTE 0.0 10*3/uL Normal <0.[address] [facility] Comment on above: Performed By: #### L [id number] ####Tug Master: HANS PAULSON ([phone])[facility] (SBAB)[address] [place] [address] Lymphocytes (Bld) [#/Vol] 1.4 10*3/uL Normal 1.0-4.[address] [facility] Comment on above: Performed By: #### L [id number] ####Tug Master: HANS PAULSON ([phone])[facility] (SBAB)[address] [place] [address] Lymphocytes/100 WBC (Bld) 18.1 % Normal 15.0-45.[address] [facility] Comment on above: Performed By: #### L [id number] ####Tug Master: HANS PAULSON ([phone])[facility] (SBHLAB)[address] [place] [address] MCH (RBC) [Entitic mass] 30.8 pg Normal 26.0-34.[address] [facility] Comment on above: Performed By: #### L [id number] ####Tug Master: HANS PAULSON ([phone])[facility] (SBHL[facility])[address] MCHC 30.3 % Low 30.5-36.[address] [facility] Comment on above: Performed By: #### L [id number] ####Tug Master: HANS PAULSON ([phone])[facility] (SBHLAB)[address] MCV (RBC) [Entitic vol] 101.7 fL High 77.0-99.0 [facility] Comment on above: Performed By: #### L [id number] ####Tug Master: HANS PAULSON ([phone])[facility] (SBHL[facility])[address] Monocytes (Bld) [#/Vol] 0.8 10*3/uL Normal 0.0-0.9 [facility] Comment on above: Performed By: #### L [id number] ####Tug Master: HANS PAULSON ([phone])[facility] [place] (SBHLAB)[address] Monocytes/100 WBC (Bld) 9.6 % Normal 5.0-13.0 [facility] Comment on above: Performed By: #### L [id number] ####Tug Master: HANS PAULSON ([phone])[facility] [place] (SBHLAB)[address] NEUTROPHILS ABSOLUTE 5.3 10*3/uL Normal 1.8-7.5 [facility] Comment on above: Performed By: #### L [id number] ####Tug Master: HANS PAULSON ([phone])[facility] [place] (SB[facility])[address] Neutrophils/100 WBC (Bld) 68.0 % Normal 38.0-82.[address] [facility] Comment on above: Performed By: #### L [id number] ####Tug Master: HANS PAULSON ([phone])[facility] [place] (SBHL[facility])[address] NRBC 0.0 /100 WBCs Normal 0.0-2.0 [facility] Comment on above: Performed By: #### L [id number] ####Tug Master: HANS PAULSON ([phone])[facility]ITAL[facility] (SB[facility])[address] Platelet mean volume (Bld) [Entitic vol] 9.6 fL Normal 9.0-12.7 [facility] Comment on above: Performed By: #### L [id number] ####Tug Master: HANSRONALD PAULSON ([phone])[facility]ITAL[facility] [place] (SBHLAB)[address] Platelets (Bld) [#/Vol] 166 10*3/uL Normal 140-440 [facility] Comment on above: Performed By: #### L [id number] ####Tug Master: HANS LORENE ([phone])[facility] (SBHLAB)[address] [place] [address] RBC (Bld) [#/Vol] 3.47 10*6/uL Low 3.80-5.20 [facility] Comment on above: Performed By: #### L [id number] ####Tug Master: HANS LORENE ([phone])[facility] (SBHL[facility])[address] [place] [address] WBC (Bld) [#/Vol] 7.8 10*3/uL Normal 3.6-10.7 [facility] Comment on above: Performed By: #### L [id number] ####Tug Master: HANS ALCANTARESCOBAR ([phone])[facility] (SBHL[facility])[address] [place] [address] Progress Noteon 08-06-2024 Progress Note Nutrition Assessment Type and Reason for Visit: [...] (interosseous) Fluid Accumulation: No significant fluid accumulation 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 The patient's shortness of breath, which is [...] fracture was identified on imaging, described as several months old. The patient's condition has significantly impacted her overall health and functioning, leading to a failure to thrive diagnosis. Her severe malnourishment and unintentional weight loss have contributed to her debilitated state. The combination of her respiratory issues, chronic pain, and nutritional deficits has led to a decline in her overall health status. Recent healthcare interactions include consultations with [facility], palliative care, pulmonology, orthopedic surgery, geriatrics, [...] 51-75% Anthropometric Measures: Height: 162.6 cm (5' 4) Current Body Weight: 40.4 kg (89 lb 1.1 oz) Weight Source: Bed Scale (08/03/24) Admission Body Weight: 40.6 kg (89 lb 8.1 oz) (07/30/24 PCP office) Usual Body Weight: 55.5 kg (122 lb 5.7 oz) % Weight Change (Calculated): -27.2 [place] Body Weight (lbs) (Calculated): 120 lbs [place] Body Weight (Kg) (Calculated): 55 kg % [place] Body Weight (Calculated): 74.2 % BMI (kg/m2) (Calculated): 15.3 Weight Adjustment For: No Adjustment BMI Categories: Underweight (BMI less than 22) age over 65 Nutrition D (more content not included)... Normal [facility] Progress Note [facility] Geriatric Medicine Inpatient Consult Service Admission [...] avoiding/decreasing use due to fall/confusion risk. --Takes Oxycodone-Acetaminophe n 5/325mg at home - reports taking every [...] Complaint: shortness of breath Geriatrics consulted for falls at home, failure to thrive HPI- The patient is known to me. [...] from [place] when she had a fall. Placed in [...] and back pain (chronic). Negative for myalgias. Psychiatric/Behavioral : Negative for confusion. Objective BP 116/72 (BP Location: Right arm, Patient Position: Lying) Pulse 82 Temp 36.6 ?C (97.9 ?F) (Temporal) Resp 18 Ht 5' 4 (more content not included)... Normal [facility] Progress Note PHYSICAL THERAPY [facility] Treatment Note Name/MRN: Gonzalo Deluca ([id number]) Date of : 1955 Age: 68 y.o. Room/Bed: [facility] B Visit #: 5 out of 7 Discharge Recommendation: Detention Facility Other: TBD at next level of [...] Webb Fall Risk Score: 85 (High Risk) Precautions/Restrictio ns: Lines/Drains/Airways: PIV, O2 Fall Precautions Overall Cognitive [...] with modified independence in order to prepare (more content not included)... Normal [facility] Progress Note [facility] [address] [place] [address] Patient - Gonzalo Deluca, Age - 68 [...] She is not currently following with a roustabout supervisor. She is on Breo ellipta, Spiriva, and [...] Patient Position: Lying) Pulse 82 Temp 36.6 ?C (97.9 ?F) (Temporal) Resp 18 Ht 5' 4 (1.626 m) Wt 89 lb 1.1 oz (40.4 kg) SpO2 93% BMI 15.29 kg/m? Pulse Ox: SpO2 Av.4 % Min: 91 [...] SNF from pulmonary standpoint. Hospital follow up schedu (more content not included)... Normal [facility] Progress Note OCCUPATIONAL THERAPY [facility] Treatment Note Name/MRN: Gonzalo Deluca ([id number]) Date of : 1955 Age: 68 y.o. [...] of SNF. Pt would likely benefit from HALF-WAY for longer term needs. Subjective Pt sleeping but awoke easily, very pleasant and agreeable to therapy treatment Pain: 0-10 pain scale: 7/10 Location: back Medical Precautions: No active isolations Proper PPE donned/doffed in accordance with facility standards. Fall Risk: Webb Fall Risk Score: 85 (Low Risk) Webb Fall Risk Score: 85 (High Risk) Precautions/Restrictio ns: Lines/Drains/Airways: 3L via NC, PIV, L UE [...] Treatment Minutes: 12 Minutes (1 ADL) Roopa More, OT Normal [facility] 30on 08-05-2024 30 Problem: Knowledge Deficit Goal: Patient/family/caregiv er demonstrates understanding of disease process, treatment plan, [...] Interventions Goal: Assess Nutritional Intake Outcome: Progressing Normal [facility] 30 Problem: Knowledge Deficit Goal: Patient/family/caregiv er demonstrates understanding of disease process, treatment plan, [...] Progressing Goal: Promote nutritional intake Outcome: Progressing Normal [facility] BASIC METABOLIC PANELon 05- Anion gap [Moles/Vol] 5 mmol/L Normal 3-13 [facility] Comment on above: Performed By: #### L [id number] ####Tug Master: HANS PAULSON ([phone])[facility] [place] (SBHLAB)[address] Calcium [Mass/Vol] 9.4 mg/dL Normal 8.8-10.0 [facility] Comment on above: Performed By: #### L [id number] ####Tug Master: HANS PAULSON ([phone])[facility] [place] (SBHLAB)[address] [place] [address] [place] Chloride [Moles/Vol] 100 mmol/L Normal 98-107 [facility] Comment on above: Performed By: #### L [id number] ####Tug Master: HANS PAULSON ([phone])[facility] [place] (SBHLAB)[address] CO2 [Moles/Vol] 36 mmol/L High 23-31 [facility] Comment on above: Performed By: #### L [id number] ####Tug Master: HANS PAULSON ([phone])[facility] [place] (SBHLAB)[address] Creatinine [Mass/Vol] 0.57 mg/dL Normal 0.57-1.11 [facility] Comment on above: Performed By: #### L [id number] ####Tug Master: HANS PAULSON ([phone])[facility] [place] (SBHLAB)[address] GLOMERULAR FILTRATION RATE ML/MIN/1.73 SQ M.PREDICTED >90.0 Normal >60.0 [facility] Comment on above: Result Comment: Calc ulation based on the Chronic Kidney Disease Epidemiology Collaboration (CKD-EPI) equation refit without adjustment for race Performed By: #### L [id number] ####Tug Master: HANS PAULSON ([id number])[facility] [place] (SBHLAB)[address] Glucose [Mass/Vol] 102 mg/dL Normal 82-115 [facility] Comment on above: Performed By: #### L [id number] ####Tug Master: HANS LORENE ([id number])[facility] (SBHLAB)[address] Potassium [Moles/Vol] 4.3 mmol/L Normal 3.5-5.1 [facility] Comment on above: Result Comment: [facility] potassium values may be up to 0.5 mmol/L lower than serum values. Performed By: #### L [id number] ####Tug Master: HANS WALDROPIVELISSE ([phone])[facility] (SBHLAB)[address] Sodium [Moles/Vol] 141 mmol/L Normal 136-145 [facility] Comment on above: Performed By: #### L [id number] ####Tug Master: HANS ALCANTARESCOBAR ([phone])[facility] (SBHLAB)[address] Urea nitrogen [Mass/Vol] 25 mg/dL High 9-23 [facility] Comment on above: Performed By: #### L [id number] ####Tug Master: HANS LORENE ([id number])[facility] (HLAB)[address] Bacteria identified Aer cx N om (Lower resp)Ordered By: Joaquina Andrade on 08-05-2024 Gram Stain Result Few Epithelial cells per low power field Abnormal [facility] Gram Stain Result Many Polymorphonucle ar leukocytes per low power field Abnormal [facility] Gram Stain Result Positive Abnormal [facility] ealt Gram Stain Result Negative Abnormal [facility] ealt Interpretation and review of laboratory results Abnormal [facility] Basic metabolic 1998 panelon 08-05-2024 Anion gap [Moles/Vol] 5 mmol/L 3 - 13 mmol/L [facility] Calcium [Mass/Vol] 9.4 mg/dL 8.8 - 10. 0 mg/dL [facility] Chloride [Moles/Vol] 100 mmol/L 98 - 10 7 mmol/L [facility] CO2 [Moles/Vol] 36 mmol/L High 23 - 31 mmol/L [facility] Creatinine [Mass/Vol] 0.57 mg/dL 0.57 - 1.11 mg/dL [facility] [employer] GFR/1.73 sq M.predicted (S/P/Bld) [Vol rate/Area] - PINF [facility] Comment on above: Calculation based on the Chronic Kidney Disease Epidemiology Collaboration (CKD-EPI) equation refit without adjustment for race Glucose [Mass/Vol] 102 mg/dL 82 - 115 mg/dL [facility] Interpretation and review of laboratory results Abnormal [facility] Potassium [Moles/Vol] 4.3 mmol/L 3.5 - 5.1 mmol/L [facility] Comment on above: Plasma potassium martín ues may be up to 0.5 mmol/L lower than serum values. Sodium [Moles/Vol] 141 mmol/L 136 - 145 mmol/L [facility] Urea nitrogen [Mass/Vol] 25 mg/dL High 9 - 23 mg/d L [facility] CBC W Auto Differential pane l (Bld)Ordered By: Yair Sanchez on 08-05-2024 Basophils (Bld) [#/Vol] 0 10*3/uL 0.0 - 0.2 10*3/uL [facility] [employer] Basophils/100 WBC (Bld) 0.3 % 0.0 - 2.0 % [facility] Eosinophils (Bld) [#/Vol] 0.1 10*3/uL 0.0 - 0.5 10*3/uL [facility] [employer] Eosinophils/100 WBC (Bld) 0.6 % 0.0 - 6.0 % [facility] Erythrocyte distribution width (RBC) [Ratio] 13.9 % 11.5 - 15.0 % [facility] Hematocrit (Bld) [Volume fraction] 38.5 % 35.0 - 47.0 % [facility] Hemoglobin (Bld) [Mass/Vol] 12 g/dL 11.7 - 16.0 g/dL [facility] Immature granulocytes (Bld) [#/Vol] 0 10*3/uL NINF - 0.1 10*3/uL [facility] [employer] Immature granulocytes/100 WBC (Bld) 0.2 % 0.0 - 2.0 % [facility] Interpretation and review of laboratory results Abnormal [facility] Lymphocytes (Bld) [#/Vol] 1.5 10*3/uL 1.0 - 4.3 10*3/uL [facility] [employer] Lymphocytes/100 WBC (Bld) 14.9 % Low 15.0 - 45.0 % [facility] MCH (RBC) [Entitic mass] 31.6 pg 26. 0 - 34.0 pg [facility] MCHC (RBC) [Mass/Vol] 31.2 % 30.5 - 36.0 % [facility] MCV (RBC) [Entitic vol] 101.3 fL High 77.0 - 99.0 fL [facility] Monocytes (Bld) [#/Vol] 1.2 10*3/uL High 0.0 - 0.9 10*3/uL [facility] Monocytes/100 WBC (Bld) 12 % 5.0 - 13.0 % [facility] Neutrophils (Bld) [#/Vol] 7.1 10*3/uL 1.8 - 7.5 10*3/uL [facility] Neutrophils/100 WBC (Bld) 72 % 38.0 - 82.0 % [facility] Nucleated RBC/100 WBC (Bld) [Ratio] 0 % [facility] Platelet mean volume (Bld) [Entitic vol] 9.8 fL 9.0 - 12.7 fL [facility] Platelets (Bld) [#/Vol] 221 10*3/uL 140 - 440 10*3/uL [facility] RBC (Bld) [#/Vol] 3.8 10*6/uL 3.80 - 5.2 0 10*6/uL [facility] WBC (Bld) [#/Vol] 9.9 10*3/uL 3.6 - 10.7 10*3/uL [facility] CBC WITH AUTO DIFFERENTIALon 08-05-2024 Basophils (Bld) [#/Vol] 0.0 10*3/uL Normal 0.0-0.2 [facility] Comment on above: Performed By: #### L [id number] ####Tug Master: HANS PAULSON ([id number])[facility] ([facility])[address] [place] [address] Basophils/100 WBC (Bld) 0.3 % Normal 0.0-2.0 [facility] Comment on above: Performed By: #### L [id number] ####Tug Master: HANS PAULSON ([id number])[facility] [place] (SBHLAB)[address] Eosinophils (Bld) [#/Vol] 0.1 10*3/uL Normal 0.0-0.5 [facility] Comment on above: Performed By: #### L [id number] ####Tug Master: HANS PAULSON ([id number])[facility] [place] (SBHLAB)[address] Eosinophils/100 WBC (Bld) 0.6 % Normal 0.0-6.0 [facility] Comment on above: Performed By: #### L [id number] ####Tug Master: HANS PAULSON ([id number])[facility] ([facility])[address] [place] [address] Erythrocyte distribution width (RBC) [Ratio] 13.9 % Normal 11.5-15.0 [facility] Comment on above: Performed By: #### L [id number] ####Tug Master: HANS PAULSON ([id number])[facility] ([facility])[address] [place] [address] Hematocrit (Bld) [Volume fraction] 38.5 % Normal 35.0-47.0 [facility] Comment on above: Performed By: #### L [id number] ####Tug Master: HANS PAULSON ([id number])[facility] ([facility])[address] [place] [address] Hemoglobin (Bld) [Mass/Vol] 12.0 g/dL Normal 11.7-16.0 [facility] Comment on above: Performed By: #### L [id number] ####Tug Master: HANS PAULSON ([id number])[facility] ([facility])[address] IMMATURE GRANS % 0.2 % Normal 0.0-2.0 [facility] Comment on above: Performed By: #### L [id number] ####Tug Master: HANS PAULSON ([phone])[facility] [place] (SBHLAB)[address] IMMATURE GRANS ABSOLUTE 0.0 10*3/uL Normal <0.[address] [facility] Comment on above: Performed By: #### L [id number] ####Tug Master: HANS WALDROPKimESCOBAR ([phone])[facility] [place] (SBHLAB)[address] Lymphocytes (Bld) [#/Vol] 1.5 10*3/uL Normal 1.0-4.[address] [facility] Comment on above: Performed By: #### L [id number] ####Tug Master: HANS PAULSON ([id number])[facility] [place] (SB[facility])[address] Lymphocytes/100 WBC (Bld) 14.9 % Low 15.0-45.[address] [facility] Comment on above: Performed By: #### L [id number] ####Tug Master: HANS PAULSON ([id number])[facility] [place] (SBHLAB)[address] MCH (RBC) [Entitic mass] 31.6 pg Normal 26.0-34.[address] [facility] Comment on above: Performed By: #### L [id number] ####Tug Master: HANS ALCANTARESCOBAR ([id number])[facility] [place] (SB[facility])[address] MCHC 31.2 % Normal 30.5-36.[address] [facility] Comment on above: Performed By: #### L [id number] ####Tug Master: HANS PAULSON ([id number])[facility] [place] (SBHLAB)[address] MCV (RBC) [Entitic vol] 101.3 fL High 77.0-99.0 [facility] Comment on above: Performed By: #### L [id number] ####Tug Master: HANS PAULSON ([id number])[facility] [place] (SBHLAB)[address] Monocytes (Bld) [#/Vol] 1.2 10*3/uL High 0.0-0.9 [facility] Comment on above: Performed By: #### L [id number] ####Tug Master: HANS PAULSON ([id number])[facility] [place] (SBHLAB)[address] Monocytes/100 WBC (Bld) 12.0 % Normal 5.0-13.0 [facility] Comment on above: Performed By: #### L [id number] ####Tug Master: HANS PAULSON ([id number])[facility] [place] (SBHLAB)[address] NEUTROPHILS ABSOLUTE 7.1 10*3/uL Normal 1.8-7.5 [facility] Comment on above: Performed By: #### L [id number] ####Tug Master: HANS PAULSON ([id number])[facility] [place] (SB[facility])[address] Neutrophils/100 WBC (Bld) 72.0 % Normal 38.0-82.[address] [facility] Comment on above: Performed By: #### L [id number] ####Tug Master: HANS PAULSON ([id number])[facility] [place] (SB[facility])[address] NRBC 0.0 /100 WBCs Normal 0.0-2.0 [facility] Comment on above: Performed By: #### L [id number] ####Tug Master: HANS PAULSON ([phone])[facility] [place] (SB[facility]AB)[address] Platelet mean volume (Bld) [Entitic vol] 9.8 fL Normal 9.0-12.7 [facility] Comment on above: Performed By: #### L [id number] ####Tug Master: HANS PAULSON ([id number])[facility] [place] (SBHLAB)[address] Platelets (Bld) [#/Vol] 221 10*3/uL Normal 140-440 [facility] Comment on above: Performed By: #### L [id number] ####Tug Master: HANS PAULSON ([id number])[facility] (SBHLAB)[address] RBC (Bld) [#/Vol] 3.80 10*6/uL Normal 3.80-5.20 [facility] Comment on above: Performed By: #### L [id number] ####Tug Master: HANS PAULSON ([id number])[facility] (HLAB)[address] WBC (Bld) [#/Vol] 9.9 10*3/uL Normal 3.6-10.7 [facility] Comment on above: Performed By: #### L [id number] ####Tug Master: HANS PAULSON ([phone])[facility] (SBHLAB)[address] [place] [address] Laboratory - Microbiology an d Antimicrobial susceptibilityOrdered By: Joaquina Andrade on 08-05-2024 Bacteria identified Aer cx Nom (Lower resp) Many respiratory linus present. [facility] Bacteria identified Aer cx Nom (Lower resp) Many Pseudomonas aeruginosa Abnormal [facility] Progress Noteon 08-05-2024 Progress Note PHYSICAL THERAPY [facility] Treatment Note Name/MRN: Gonzalo Dleuca ([id number]) Date of : 1955 Age: 68 y.o. Room/Bed: B2254/[facility]254 B Visit #: 4 out of 7 Discharge Recommendation: Detention Facility Other: TBD at next level of [...] 87-91% on 4L, RPD 3/10, post ambulation 2-310, desat to 87% on 6L post ambulation trial Post: SpO2 93% on 4L via NC Pain: always but pt didn't provide rating, or location Medical Precautions: No active isolations Proper PPE donned/doffed in accordance with facility standards. Fall Risk: Webb Fall Risk Score: 85 (Low Risk) Webb Fall Risk Score: 85 (High Risk) Precautions/Restrictio ns: Lines/Drains/Airways: 4L via NC, PIV Fall Precautions [...] ambulate 100 feet with modified independence and le (more content not included)... Normal [facility] Progress Note OCCUPATIONAL THERAPY [facility] Treatment Note Name/MRN: Gonzalo Deluca ([id number]) Date of : 1955 Age: 68 y.o. Room/Bed: B2-254/B2-254 B Visit #: 3 out of 6 Discharge Recommendation: Detention Facility Equipment Needed: No Assessment Pt tolerated [...] Webb Fall Risk Score: 85 (High Risk) Precautions/Restrictio ns: Braces or Orthoses: LUE long cast Left [...] 20 Minutes (1 THER ACT) VAN Diana/Arsenio [facility] Progress Note [facility] [place] [address] [place] [address] Patient - Gonzalo Deluca, Age - 68 y.o. - 1955 Room Number - B2-254/B2-254 B Consulting - Rena Beverly MD Primary Care Physician - HERMINIA CASE MD [facility] # - [id number] Date of Admission - 07/30/2024 4:40 PM [...] hematemesis melena hematuria Apparently not seeing any roustabout supervisor recently Was on Dulera Spiriva and rescue inhaler compliant with the medication Not on NIV No PFT available in [facility] All other systems reviewed Objective Vitals: BP 123/78 Pulse 78 Temp 36.7 ?C (98 ?F) (Temporal) Resp 16 Ht 5' 4 (1.626 m) Wt 89 lb 1.1 oz (40.4 kg) SpO2 94% BMI 15.29 kg/m? Pulse Ox: SpO2 Av.4 % Min: 93 [...] or gallop. Pulmonary: Effort normal, no respiratory distress/conversationa l dyspnea Increased AP diameter of the chest [...] 21 INR PTT No results found for: PTT Cultures Radiology Exam Date/Time: 07/31/2024 15:25 Procedure: [...] fluid, similar to the prior. Lymph Nodes: N (more content not included)... Normal [facility] 30on 08-04-2024 30 Problem: Knowledge Deficit Goal: Patient/family/caregiv er demonstrates understanding of disease process, treatment plan, [...] My discharge needs are met Outcome: Progressing Normal [facility] 30 Problem: Knowledge Deficit Goal: Patient/family/caregiv er demonstrates understanding of disease process, treatment plan, [...] Progressing Goal: Promote nutritional intake Outcome: Progressing Normal [facility] [id number] 08-04-2024 [id number] Was updated by attending that peer to peer was denied and patient would need to submit an appeal. The appeal number for [facility] is [phone] and fast appeal fax [phone] is not open on the weekend and this will need to be initiated on Tuesday. Discussed with patient and she wanted to discuss with her daughter prior to deciding to pursue appeal or discharge home with [facility]. She did state that her daughter was interested in getting her into an assistive living and that she has medicaid. Will update weekday TCC to follow.. Normal [facility] [id number] Called [facility] and spoke with Xiao and insurance is requesting peer to peer to be completed by 08/06 at 12 noon central standard time. Number for peer to peer is [phone] option 5. Will need members name, and ID number. Physicians are available 8-5 over the weekend central standard time. Did update attending with information to complete peer to peer. . [facility] BASIC METABOLIC PANELon 05- Anion gap [Moles/Vol] 6 mmol/L Normal 3-13 [facility] Comment on above: Performed By: #### L [id number] ####Tug Master: HANS PAULSON ([id number])[facility] (SBAB)[address] Calcium [Mass/Vol] 8.4 mg/dL Low 8.8-10.0 [facility] Comment on above: Performed By: #### L AB15 ####Tug Master: HANS PAULSON ([id number])[facility] (SBHLAB)[address] Chloride [Moles/Vol] 104 mmol/L Normal 98-107 [facility] Comment on above: Performed By: #### L AB15 ####Tug Master: HANS PAULSON ([id number])[facility] (SBHL[facility])[address] CO2 [Moles/Vol] 32 mmol/L High 23-31 [facility] Comment on above: Performed By: #### L AB15 ####Tug Master: HANS PAULSON ([id number])[facility] ([facility])[address] Creatinine [Mass/Vol] 0.55 mg/dL Low 0.57-1.11 [facility] Comment on above: Performed By: #### L AB15 ####Tug Master: HANS [id number])[facility] ([place])[address] GLOMERULAR FILTRATION RATE ML/MIN/1.73 SQ M.PREDICTED >90.0 Normal >60.0 [facility] Comment on above: Result Comment: Calc ulation based on the Chronic Kidney Disease Epidemiology Collaboration (CKD-EPI) equation refit without adjustment for race Performed By: #### L AB15 ####Tug Master: HANS PAULSON ([phone])[facility] Glucose [Mass/Vol] 111 mg/dL Normal 82-115 [facility] Comment on above: Performed By: #### L AB15 ####Tug Master: HANS PAULSON ([id number])[facility] ([facility])[address] [place] [address] Potassium [Moles/Vol] 4.2 mmol/L Normal 3.5-5.1 [facility] Comment on above: Result Comment: [facility] potassium values may be up to 0.5 mmol/L lower than serum values. Performed By: #### L AB15 ####Tug Master: HANS PAULSON ([phone])[facility] ([facility])[address] Sodium [Moles/Vol] 142 mmol/L Normal 136-145 [facility] Comment on above: Performed By: #### L AB15 ####Tug Master: HANS PAULSON ([phone])[facility] ([facility] [place] [address] [place] Urea nitrogen [Mass/Vol] 26 mg/dL High 9-23 [facility] Comment on above: Performed By: #### L AB15 ####Tug Master: HANS PAULSON ([id number])[facility] ([facility])[address] Basic metabolic 1998 panelon 08-04-2024 Anion gap [Moles/Vol] 6 mmol/L 3 - 13 mmol/L [facility] Calcium [Mass/Vol] 8.4 mg/dL Low 8.8 - 10. 0 mg/dL [facility] Chloride [Moles/Vol] 104 mmol/L 98 - 10 7 mmol/L [facility] CO2 [Moles/Vol] 32 mmol/L High 23 - 31 mmol/L [facility] Creatinine [Mass/Vol] 0.55 mg/dL Low 0.57 - 1.11 mg/dL [facility] GFR/1.73 sq M.predicted (S/P/Bld) [Vol rate/Area] - PINF [facility] Comment on above: Calculation based on the Chronic Kidney Disease Epidemiology Collaboration (CKD-EPI) equation refit without adjustment for race Glucose [Mass/Vol] 111 mg/dL 82 - 115 mg/dL [facility] Interpretation and review of laboratory results Abnormal [facility] Potassium [Moles/Vol] 4.2 mmol/L 3.5 - 5.1 mmol/L [facility] Comment on above: Plasma potassium martín ues may be up to 0.5 mmol/L lower than serum values. Sodium [Moles/Vol] 142 mmol/L 136 - 145 mmol/L [facility] Urea nitrogen [Mass/Vol] 26 mg/dL High 9 - 23 mg/d L [facility] CBC W Auto Differential pane l (Bld)on 08-04-2024 Basophils (Bld) [#/Vol] 0 10*3/uL 0.0 - 0.2 10*3/uL [facility] Basophils/100 WBC (Bld) 0.2 % 0.0 - 2.0 % [facility] Eosinophils (Bld) [#/Vol] 0 10*3/uL 0.0 - 0.5 10*3/uL [facility] Eosinophils/100 WBC (Bld) 0.4 % 0.0 - 6.0 % [facility] Erythrocyte distribution width (RBC) [Ratio] 13.8 % 11.5 - 15.0 % [facility] Hematocrit (Bld) [Volume fraction] 32.5 % Low 35.0 - 47.0 % [facility] Hemoglobin (Bld) [Mass/Vol] 10.2 g/dL Low 11.7 - 16.0 g/dL [facility] Immature granulocytes (Bld) [#/Vol] 0 10*3/uL NINF - 0.1 10*3/uL [facility] Immature granulocytes/100 WBC (Bld) 0.4 % 0.0 - 2.0 % [facility] Interpretation and review of laboratory results Abnormal [facility] Lymphocytes (Bld) [#/Vol] 1 10*3/uL 1.0 - 4.3 10*3/uL [facility] Lymphocytes/100 WBC (Bld) 11.8 % Low 15.0 - 45.0 % [facility] MCH (RBC) [Entitic mass] 31.6 pg 26. 0 - 34.0 pg [facility] MCHC (RBC) [Mass/Vol] 31.4 % 30.5 - 36.0 % [facility] MCV (RBC) [Entitic vol] 100.6 fL High 77.0 - 99.0 fL [facility] Monocytes (Bld) [#/Vol] 1 10*3/uL High 0.0 - 0.9 10*3/uL [facility] Monocytes/100 WBC (Bld) 11.6 % 5.0 - 13.0 % [facility] Neutrophils (Bld) [#/Vol] 6.2 10*3/uL 1.8 - 7.5 10*3/uL [facility] Neutrophils/100 WBC (Bld) 75.6 % 38.0 - 82.0 % [facility] Nucleated RBC/100 WBC (Bld) [Ratio] 0 % [facility] Platelet mean volume (Bld) [Entitic vol] 9.6 fL 9.0 - 12.7 fL [facility] Platelets (Bld) [#/Vol] 164 10*3/uL 140 - 440 10*3/uL [facility] RBC (Bld) [#/Vol] 3.23 10*6/uL Low 3.80 - 5.2 0 10*6/uL [facility] WBC (Bld) [#/Vol] 8.2 10*3/uL 3.6 - 10.7 10*3/uL [facility] CBC WITH AUTO DIFFERENTIALon 08-04-2024 Basophils (Bld) [#/Vol] 0.0 10*3/uL Normal 0.0-0.2 [facility] Comment on above: Performed By: #### L [id number] ####Tug Master: HANS PAULSON ([id number])[facility] [place] ([facility])[address] Basophils/100 WBC (Bld) 0.2 % Normal 0.0-2.0 [facility] Comment on above: Performed By: #### L [id number] ####Tug Master: HANS PAULSON ([id number])[facility] [place] ([facility])[address] Eosinophils (Bld) [#/Vol] 0.0 10*3/uL Normal 0.0-0.5 [facility] Comment on above: Performed By: #### L [id number] ####Tug Master: HANS PAULSON ([id number])[facility] [facility] [place] ([facility])[address] Eosinophils/100 WBC (Bld) 0.4 % Normal 0.0-6.0 [facility] Comment on above: Performed By: #### L [id number] ####Tug Master: HANS PAULSON ([id number])[facility] [place] ([facility])[address] [place] [address] Erythrocyte distribution width (RBC) [Ratio] 13.8 % Normal 11.5-15.0 [facility] Comment on above: Performed By: #### L [id number] ####Tug Master: HANS PAULSON ([phone])[facility] [place] (SB[facility])[address] [place] [address] Hematocrit (Bld) [Volume fraction] 32.5 % Low 35.0-47.0 [facility] Comment on above: Performed By: #### L [id number] ####Tug Master: HANS PAULSON ([id number])[facility] [place] ([facility])[address] Hemoglobin (Bld) [Mass/Vol] 10.2 g/dL Low 11.7-16.[address] [facility] Comment on above: Performed By: #### L [id number] ####Tug Master: HANS PAULSON ([id number])[facility] [place] (SBHLAB)[address] IMMATURE GRANS % 0.4 % Normal 0.0-2.0 [facility] Comment on above: Performed By: #### L [id number] ####Tug Master: HANS PAULSON ([phone])[facility] [place] ([facility])[address] IMMATURE GRANS ABSOLUTE 0.0 10*3/uL Normal <0.[address] [facility] Comment on above: Performed By: #### L [id number] ####Tug Master: HANS PAULSON ([id number])[facility] [place] (SBHLAB)[address] Lymphocytes (Bld) [#/Vol] 1.0 10*3/uL Normal 1.0-4.[address] [facility] Comment on above: Performed By: #### L [id number] ####Tug Master: HANS PAULSON ([id number])[facility] [place] ([facility])[address] Lymphocytes/100 WBC (Bld) 11.8 % Low 15.0-45.[address] [facility] Comment on above: Performed By: #### L [id number] ####Tug Master: HANS PAULSON ([id number])[facility] [place] ([facility])[address] MCH (RBC) [Entitic mass] 31.6 pg Normal 26.0-34.[address] [facility] Comment on above: Performed By: #### L [id number] ####Tug Master: HANS PAULSON ([id number])[facility] [place] ([facility])[address] MCHC 31.4 % Normal 30.5-36.[address] [facility] Comment on above: Performed By: #### L [id number] ####Tug Master: HANS PAULSON ([phone])[facility] [place] (SBHLAB)[address] MCV (RBC) [Entitic vol] 100.6 fL High 77.0-99.0 [facility] Comment on above: Performed By: #### L [id number] ####Tug Master: HANS PAULSON ([id number])[facility] [place] (SB[facility])[address] Monocytes (Bld) [#/Vol] 1.0 10*3/uL High 0.0-0.[address] [facility] Comment on above: Performed By: #### L [id number] ####Tug Master: HANS PAULSON ([id number])[facility] [place] ([facility])[address] Monocytes/100 WBC (Bld) 11.6 % Normal 5.0-13.0 [facility] Comment on above: Performed By: #### L [id number] ####Tug Master: HANS PAULSON ([id number])[facility] [place] ([facility])[address] NEUTROPHILS ABSOLUTE 6.2 10*3/uL Normal 1.8-7.5 [facility] Comment on above: Performed By: #### L [id number] ####Tug Master: HANS PAULSON ([id number])[facility] [place] ([facility])[address] Neutrophils/100 WBC (Bld) 75.6 % Normal 38.0-82.[address] [facility] Comment on above: Performed By: #### L [id number] ####Tug Master: HANS PAULSON ([id number])[facility] [place] ([facility])155 [place] [address] [place] NRBC 0.0 /100 WBCs Normal 0.0-2.0 [facility] Comment on above: Performed By: #### L [id number] ####Tug Master: HANS PAULSON ([id number])[facility] [place] ([facility])[address] Platelet mean volume (Bld) [Entitic vol] 9.6 fL Normal 9.0-12.7 [facility] Comment on above: Performed By: #### L [id number] ####Tug Master: HANS ALCANTARESCOBAR ([id number])[facility] (SB[facility]AB)[address] Platelets (Bld) [#/Vol] 164 10*3/uL Normal 140-[address] [facility] Comment on above: Performed By: #### L [id number] ####Tug Master: HANS AGUILARCER ([id number])[facility] ([facility])[address] RBC (Bld) [#/Vol] 3.23 10*6/uL Low 3.80-5.[address] [facility] Comment on above: Performed By: #### L [id number] ####Tug Master: HANS PAULSON ([id number])[facility] (SBHL[facility])[address] [place] [address] WBC (Bld) [#/Vol] 8.2 10*3/uL Normal 3.6-10.7 [facility] Comment on above: Performed By: #### L [id number] ####Tug Master: HANS ALCANTARESCOBAR ([phone])[facility] (SB[facility])[address] [place] [address] Progress Noteon 08-04-2024 Progress Note [facility] [address] [place] [address] Patient - Gonzalo Deluca, Age - 68 [...] hematemesis melena hematuria Apparently not seeing any roustabout supervisor recently Was on Dulera Spiriva and rescue inhaler compliant with the medication Not on NIV No PFT available in [facility] All other systems reviewed Objective Vitals: BP 127/72 Pulse 85 Temp 36.3 ?C (97.3 ?F) (Temporal) Resp 18 Ht 5' 4 (1.626 m) Wt 89 lb 1.1 oz (40.4 kg) SpO2 91% BMI 15.29 kg/m? Pulse Ox: SpO2 Av.8 % Min: 91 [...] or gallop. Pulmonary: Effort normal, no respiratory distress/conversationa l dyspnea Increased AP diameter of the chest [...] 21 INR PTT No results found for: PTT Cultures Radiology Exam Date/Time: 07/31/2024 15:25 Procedure: [...] prior. Lymph Nodes: No thoracic lymphadenopathy is evid (more content not included)... [facility] Progress Note PHYSICAL THERAPY [facility] Name/MRN: Gonzalo Deluca ([id number]) Date: 08/04/2024 Chart review completed this date. PT attempted. Pt supine. Receiving breathing treatments during first attempt second attempt patient requesting HR COORDINATOR return after eating breakfast. Pt tray had not yet arrived. Max encouragement provided with no success. Multiple options for therapy participation provided with no success. PT will continue to follow. Will re-attempt another time/date as schedule permits. Salina Miller, HR COORDINATOR [facility] Progress Note Nutrition note -received consult for poor jeri <12 . Jeri is 20 -already being followed by RD. [facility]ills [facility] 30on 08-03-2024 30 Problem: Knowledge Deficit Goal: Patient/family/caregiv er demonstrates understanding of disease process, treatment plan, [...] Interventions Goal: Assess Nutritional Intake Outcome: Progressing [facility] 30 Problem: Knowledge Deficit Goal: Patient/family/caregiv er demonstrates understanding of disease process, treatment plan, [...] My discharge needs are met Outcome: Progressing [facility] [id number] 08-03-2024 [id number] Tasked weekend correctional case records supervisor to follow for pending auth to [facility]. 7000 will need to be completed at the time of discharge. virtual classroom manager to follow and assist as needed. [facility] [phone] Sent updated notes t o SNF [facility] via [facility] per [facility] request. Await review and response regarding ability to accept. TCC notified. 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 Pulmonology consulted and supporting, +severe emphysema and imaging on admit showed: ?LLL density, suspected atelectasis?. Steroid taper, +PNA. Orthopedics consulted and supporting, [...] 76-100% Anthropometric Measures: Height: 162.6 cm (5' 4) Current Body Weight: 42 kg (92 lb 9.5 oz) Weight Source: Bed Scale Admission Body Weight: 40.6 kg (89 lb 8.1 oz) (07/30/24 PCP office) Usual Body Weight: 55.5 kg (122 lb 5.6 oz) (per EMR 122.35# 09/08/23) % Weight Change (Calculated): -24.3 [place] Body Weight (lbs) (Calculated): 120 lbs [place] Body Weight (Kg) (Calculated): 55 kg % [place] Body Weight (Calculated): 77.2 % BMI (kg/m2) [...] high calorie supplement Nutrition Monitoring and Evaluation: Behavioral-Environment al Outcomes: None Identified Food/Nutrient Intake Outcomes: Food and Nutrient Intake, Supplement Intake Physical Signs/Symptoms Outcomes: Biochemical Data, GI Status, Meal Time Behavior, Hemodynamic Status, Weight, Skin, Fluid Status or Edema, Nutrition Focused Physical Findings, Nausea or Vomiting Discharge Planning: Continue current diet, Continue Oral Nutrition Supplement Celeste Garcia, LAILAN, LDN, Contact: *[phone] Normal [facility] Progress Note [facility] Geriatric Medicine Inpatient Consult Service Admission [...] waiver --08/03: Discharge plan is SNF - [facility] when medically stable Severe Malnutrition --continue Mirtazapine [...] note, this was the dose recommended by [facility] psychiatry when she was hospitalized in [...] deficits. --Recommend outpatient follow up at [facility]) for more in depth cognitive evaluation when in usual state of health. --08/03: stable Chronic pain --Continue Tylenol 650mg BID --Takes Flexeril 5mg - ordered for BID dosing at home (takes occasionally). Recommend avoiding/decreasing use due to fall/confusion risk. --Takes Oxycodone-Acetaminophe n 5/325mg at home - reports taking every [...] Complaint: shortness of breath Geriatrics consulted for falls at home, failure to thrive HPI- The patient is new to me [...] days. Also with cough. Her appetite is not bad. -Sleep: it was OK. She did wake [...] Musculoskeletal: Positive for arthralgias. Negative for myalgias. Psychiatric/Behavioral : Negative for confusion. Objective BP 113/65 (BP Locati (more content not included)... Normal [facility] Progress Note PHYSICAL THERAPY [facility] Treatment Note Name/MRN: Gonzalo Deluca ([id number]) Date of : 1955 Age: 68 y.o. Room/Bed: B2-254/[facility] B Visit #: 3 out of 7 visits Discharge Recommendation: Detention Facility Other: TBD at next level of [...] Webb Fall Risk Score: 70 (High Risk) Precautions/Restrictio ns: Braces or Orthoses: L UE splint - [...] and independence with mobility. (Progressing) Start: 07/31/24 Expe (more content not included)... Normal [facility] Progress Note OCCUPATIONAL THERAPY [facility] Treatment Note Name/MRN: Gonzalo Deluca ([id number]) Date of : 1955 Age: 68 y.o. Room/Bed: B2-254/B2254 B Visit #: 2 out of 6 visits Discharge Recommendation: Detention Facility Equipment Needed: No Prior Level of Function Prior Level of ADL Function: Independent Prior Level of Mobility: Independent; Device: Straight Cane Prior Level of Transfers: Independent Assessment Pt tolerated session fair, continues to be limited by fatigue and SOB. Pt completed bed mobility at Mod I. Pt completed x3 STS and LE dressing/bathing at [facility]. Pt completed seated UE bathing at [...] bit Pain Location: reports more of an annoying pain in her LUE Medical Precautions: No active isolations Proper PPE donned/doffed in accordance with facility standards. Fall Risk: Webb Fall Risk Score: 70 (Low Risk) Webb Fall Risk Score: 70 (High Risk) Precautions/Restrictio ns: Braces or Orthoses: L UE splint - [...] doffed pants with unilateral UE support at [facility]. Pt demo no overt LoB. Pt demo threading LE clothing while seated and managed over hips in standing at [facility]. Pt doffed/donned austin socks while seated EOB with figure 4 tech at [facility] I. Pt completed seated face washing at EOB at [facility] I. Pt completed UE bathing while seated EOB with Mod A after set up. Pt with IV running and in personal shirt, unable to fully doff shirt for bathing. Pt required assist to wash R side due to LUE with cast. Pt completed standing LE bathing (periarea) at [facility]. Pt demo no overt LoB, generally unstable. Pt required seated rest break x2 due to increased SOB. Pt completed BLE bathing while seated without hands on assist Bed Mobility Supine to sit: Modified Independent Sit to supine: Modified Independent Scooting: Modified Independent HOB Elevated Use of bed rail(s) Pt completed all aspects of bed mobility with use of bed features at [facility] I. Pt able to maintain LUE NWB throughout. Transfers/Mobility Sit to stand: Contact Guard Stand to sit: Contact Guard, Pt completed x3 STS from EOB without device at [facility]. Pt ed on proper tech to maintain LUE NWB, demo good teachback. Pt denied dizziness but demo SOB Sitting balance: Independent Standing balance: Contact Guard Pt completed standing ADL tasks at [facility]. Pt demo instability but no overt LoB. [...] (Not Addressed) Start: 08/01/24 Expected End: 08/07/24 T (more content not included)... Normal [facility] Progress Note [facility] [address] [place] [address] Patient - Gonzalo Deluca, Age - 68 y.o. - 1955 Room Number - B2-254/B2-254 B Consulting - Rena Beverly MD Primary Care Physician - [id number] Date of Admission - 07/30/2024 4:40 PM [...] hematemesis melena hematuria Apparently not seeing any roustabout supervisor recently Was on Dulera Spiriva and rescue inhaler compliant with the medication Not on NIV No PFT available in [facility] All other systems reviewed Objective Vitals: BP 113/65 (BP Location: Right arm, Patient Position: Sitting) Pulse 79 Temp 36.2 ?C (97.2 ?F) (Temporal) Resp 17 Ht 5' 4 (1.626 m) Wt 89 lb (40.4 kg) SpO2 94% BMI 15.28 kg/m? Pulse Ox: SpO2 Av % Min: 94 [...] or gallop. Pulmonary: Effort normal, no respiratory distress/conversationa l dyspnea Increased AP diameter of the chest [...] 21 INR PTT No results found for: PTT Cultures Radiology Exam Date/Time: 07/31/2024 15:25 Procedure: [...] is evident Pleura: Unremarkable [employer]: No ai (more content not included)... Normal [facility] Progress Note H: No results for input(s): HGB, WBC in the last 72 hours. VS: Blood pressure 145/89, pulse 101, temperature 36.4 ?C (97.5 ?F), temperature source Temporal, resp. rate 18, height 1.626 m (5' 4), weight 40.4 kg (89 lb), SpO2 94%. No complaints or overnight issues. PE: LAC intact LUE. 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 Lab Results Component Value Date WBC 8.9 07/30/2024 HGB 11.2 (L) 07/30/2024 HCT 37.0 07/30/2024 PLT 225 07/30/2024 Normal [facility] 30on 08-02-2024 30 Problem: Knowledge Deficit Goal: Patient/family/caregiv er demonstrates understanding of disease process, treatment plan, [...] My discharge needs are met Outcome: Progressing Normal [facility] 30 Problem: Knowledge Deficit Goal: Patient/family/caregiv er demonstrates understanding of disease process, treatment plan, [...] My discharge needs are met Outcome: Progressing Normal [facility] Progress Noteon 08-02-2024 Progress Note PHYSICAL THERAPY [facility] Treatment Note Name/MRN: Gonzalo Deluca ([id number]) Date of : 1955 Age: 68 y.o. Room/Bed: -254/[facility] B Visit #: 2 out of 7 visits Discharge Recommendation: Continue to assess pending progress, Detention Facility Other: TBD at next level of [...] Webb Fall Risk Score: 70 (High Risk) Precautions/Restrictio ns: Braces or Orthoses: L UE splint - [...] functional mobility in order to promote healing a (more content not included)... Normal [facility] Progress Note [facility] Geriatric Medicine Inpatient Consult Service Admission [...] avoiding/decreasing use due to fall/confusion risk. --Takes Oxycodone-Acetaminophe n 5/325mg at home - reports taking every [...] Subjective Chief Complaint: fatigue Geriatrics consulted for falls at home, failure to thrive HPI- The patient is known to me. 68 y.o. year-old female with PMH of COPD, cervical cancer, DDD, DJD, Lung nodules, Osteoporosis, Depression, Compression fracture, Vitamin D deficiency, anxiety, presented to [facility] on 07/30/24 with complaints of weight loss [...] for gait problem. Neurological: Positive for weakness. Psychiatric/Behavioral : Positive for sleep disturbance. Negative for confusion and dysphoric mood. The patient is not nervous/anxious. Objective BP 123/80 (BP Location: Right arm, Patient Position: Sitting) Pulse 87 (more content not included)... Normal [facility] Progress Note OCCUPATIONAL THERAPY [facility] Treatment Note Name/MRN: Gonzalo Deluca ([id number]) Date of : 1955 Age: 68 y.o. Room/Bed[facility] B Visit #: 1 out of 6 visits Discharge Recommendation: Detention Facility, Continue to assess pending progress Equipment [...] Webb Fall Risk Score: 70 (High Risk) Precautions/Restrictio ns: Braces or Orthoses: L UE splint - [...] Patient will complete toileting tasks at standard toil (more content not included)... Normal [facility] Progress Note H: Recent Labs 07/30/24 1729 HGB 11.2* WBC 8.9 VS: Blood pressure 131/88, pulse 95, temperature 36 ?C (96.8 ?F), temperature source Temporal, resp. rate 22, height 1.626 m (5' 4), weight 40.4 kg (89 lb), SpO2 95%. [...] 07/30/2024 HCT 37.0 07/30/2024 PLT 225 07/30/2024 Normal [facility] Progress Note [facility] [address] [place], [place] [id number] Patient - Gonzalo Deluca, Age - 68 y.o. - 1955 Room Number - B2-254/B2-254 B Consulting - Dejuan Bishop MD Primary Care Physician - HERMINIA CASE [id number] Date of Admission - 07/30/2024 4:40 PM [...] hematemesis melena hematuria Apparently not seeing any roustabout supervisor recently Was on Dulera Spiriva and rescue inhaler compliant with the medication Not on NIV No PFT available in [facility] All other systems reviewed Objective Vitals: BP 131/88 (BP Location: Right arm, Patient Position: Sitting) Pulse 95 Temp 36 ?C (96.8 ?F) (Temporal) Resp 22 Ht 5' 4 (1.626 m) Wt 89 lb (40.4 kg) SpO2 95% BMI 15.28 kg/m? Pulse Ox: SpO2 Av.5 % Min: 87 [...] or gallop. Pulmonary: Effort normal, no respiratory distress/conversationa l dyspnea Increased AP diameter of the chest [...] 21 INR PTT No results found for: PTT Cultures Radiology Exam Date/Time: 07/31/2024 15:25 Procedure: [...] central pulmonary emboli. Mediastinum/Pericardiu m: Small amount (more content not included)... Normal [facility] 30on 08-01-2024 30 Problem: Knowledge Deficit Goal: Patient/family/caregiv er demonstrates understanding of disease process, treatment plan, [...] My discharge needs are met Outcome: Progressing Normal [facility] Consulton 08-01-2024 Consult [facility] [address] [place] [address] Patient - Gonzalo Deluca - 1955 Date [...] hematemesis melena hematuria Apparently not seeing any roustabout supervisor recently Was on Dulera Spiriva and rescue [...] - Unmet Transportation Needs (06/06/2024) Received from [facility] - Transportation Lack of Transportation (Medical): Yes Lack of Transportation (Non-Medical): No Physical Activity: Insufficiently Active (07/31/2024) Exercise Vital Sign Days of Exercise per Week: 3 days Minutes of Exercise per Session: 20 min Stress: No Stress Concern Present (07/31/2024) [employer] [place] [facility] - Occupational Stress Questionnaire Feeling of Stress : Only a little Recent Concern: Stress - Stress Concern Present (06/06/2024) Received from [facility] - Occupational Stress Questionnaire Feeling of Stress : To some extent Social Connections: Socially Isolated (07/31/2024) Social Connection and Isolation Panel [NHANES] Frequency of Communication with Friends and Family: Three times a week Frequency of Social Gatherings with Friends and Family: Three times a week Attends Anabaptism Services: Never Active Member of Clubs or [...] 2 puffs, Every 4 hours PRN alendronate (more content not included)... Normal [facility] PNEUMONIA PCR PANELon 2024 PNEUMONIA PCR PANEL STAPHYLOCOCCUS AUREU S Reference Not Detected Not Detected STREPTOCOCCUS AGALACTIAE (A) Reference Detected Not Detected STREPTOCOCCUS PNEUMONIAE Reference Not Detected Not Detected STREPTOCOCCUS PYOGENES Reference Not Detected Not Detected HAEMOPHILUS INFLUENZAE Reference Not Detected Not Detected MORAXELLA CATARRHALIS (A) Reference Detected Not Detected ACINETOBACTER BAUMANNII COMPLEX Reference Not Detected Not Detected ENTEROBACTER CLOACAE COMPLEX Reference Not Detected Not Detected ESCHERICHIA COLI Reference Not Detected Not Detected KLEBSIELLA (ENTEROBACTER) AEROGENES Reference Not Detected Not Detected KLEBSIELLA OXYTOCA Reference Not Detected Not Detected KLEBSIELLA PNEUMONIAE Reference Not Detected Not Detected PROTEUS SPP Reference Not Detected Not Detected PSEUDOMONAS AERUGINOSA (A) Reference Detected Not Detected SERRATIA MARCESCENS Reference Not Detected Not Detected CHLAMYDIA PNEUMONIAE Reference Not Detected Not Detected LEGIONELLA PNEUMOPHILA Reference Not Detected Not Detected MYCOPLASMA PNEUMONIAE Reference Not Detected Not Detected ADENOVIRUS Reference Not Detected Not Detected CORONAVIRUS Reference Not Detected Not Detected HUMAN METAPNEUMOVIRUS Reference Not Detected Not Detected HUMAN RHINOVIRUS/ENTEROVIRUS Reference Not Detected Not Detected INFLUENZA A Reference Not Detected Not Detected INFLUENZA B Reference Not Detected Not Detected PARAINFLUENZA VIRUS Reference Not Detected Not Detected RESPIRATORY SYNCYTIAL VIRUS Reference Not Detected Not Detected ORDER COMMENTS: Methodology: Multiplex PCR This panel does not test for SARS-CoV-2 (Covid-19). The following antimicrobial resistance gene is reported if the appropriate organism is detected: mecA. The following antimicrobial resistance genes are reported if detected and the appropriate organisms are detected: CTX-M, IMP, KPC, NDM, OXA-48-like, and VIM. Normal [facility] Comment on above: Performed By: #### L [id number], [id number] ####Tug Master: AMELIE ELIZABETH ([id number])[facility] ([address] Progress Noteon 08-01-2024 Progress Note PHYSICAL THERAPY [facility] Treatment Note Name/MRN: Gonzalo Ferris Raudelyahir ([id number]) Date of : 1955 Age: 68 y.o. Room/Bed: [facility]254/[facility] B Visit #: 1 out of 7 visits Discharge Recommendation: Continue to assess pending progress, Detention Facility Other: TBD at next level of [...] Webb Fall Risk Score: 70 (High Risk) Precautions/Restrictio ns: Braces or Orthoses: L UE splint - [...] Raw Score (No Stairs) : 15 JH-HLM -HLM Score: Walked 25 ft or [...] Addressed) Start: 07/31/24 Expected End: 08/14/24 Patient kari (more content not included)... Normal [facility] Progress Note [facility] Geriatric Medicine Inpatient Consult Service Admission [...] deficits. --Recommend outpatient follow up at [facility] [facility]) for more in depth cognitive evaluation when in usual state of health. Chronic pain --Continue Tylenol 650mg BID --Takes Flexeril 5mg - ordered for BID dosing at home. Recommend avoiding/decreasing use due to fall/confusion risk. Reports taking occasionally at home. --Takes Oxycodone-Acetaminophe n 5/325mg at home - reports taking every [...] Subjective Chief Complaint: weakness Geriatrics consulted for falls at home, failure to thrive HPI- The patient is known to me. 68 y.o. year-old female with PMH of COPD, cervical cancer, DDD, DJD, Lung nodules, Osteoporosis, Depression, Compression fracture, Vitamin D deficiency, anxiety, presented to [facility] on 07[facility]24 with complaints of weight loss and shortness of breath. Admitted with Failure to Thrive, severe protein-calorie malnutrition, close supracondylar fracture of left humerus, COPD. Ortho evaluated and diagnosed the fracture as subacute from Feb when she had a fall. Long arm [...] Neurological: Positive for weakness. Negative for tremors. Psychiatric/Behavioral : Negative for confusion, dysphoric mood and sleep disturbance. The patient is not nervous/anxious. Objective BP 114/79 Pulse 91 Temp 36.9 ?C (98.5 ?F) (Temporal) Resp 18 Ht 5' 4 (1.626 m) Wt 89 lb (40.4 kg) SpO2 90% BMI 15.28 kg/m? Intake/Output Summary (Last 24 hours) at 08/01/2024 1031 Last data filed at 07/31/2024 1759 Gross per 24 hour Intake 325 ml Output -- Net 325 ml Wt Readings from Last 3 Encounters: 07/30/24 89 lb (40.4 kg) 04/27/24 108 lb (49 kg (more content not included)... Normal [facility] Progress Note Speech-Language Pathology SPEECH LANGUAGE PATHOLOGY [facility] Dysphagia Treatment Note Patient Name: Gonzalo Deluca Evaluation Date: 08/01/2024 Date of : 1955 Admission Date: 07/30/2024 4:40 PM Age: 68 y.o. Room/Bed: [facility] B Subjective Patient alert and cooperative. Seen upright in bed. Answers all basic questions with clear vocal quality. Follows all basic commands. No visitors at bedside. Pt was sitting up eating breakfast. Current Diet: Dietary Orders (From admission, onward) Start Ordered 07/31/24 103 Supplement:AM Snack, PM Snack; Vanilla Ensure Plus Until discontinued Question Answer Comment Frequency AM Snack Frequency PM Snack Select supplement: Vanilla Ensure Plus 07/31/24 1030 07/31/24 1031 Supplement:HS Snack; Cactus Ensure Plus Until discontinued Question Answer Comment Frequency HS Snack Select supplement: Cactus Ensure Plus 07/31/24 1030 07/30/24 2313 Adult [...] bites/sips Patient has achieved all acute care OR FIRST ASSIST REGISTERED NURSE goals. Speech therapy to sign off at [...] Expected End: 08/07/24 Resolved: 08/01/24 Therapy Time OR FIRST ASSIST REGISTERED NURSE Individual Minutes Time In: 0830 Time Out: 0840 Minutes: 10 Amelie Esquivel OR FIRST ASSIST REGISTERED NURSE Normal [facility] Progress Note H: Recent Labs 07/30/24 1729 HGB 11.2* WBC 8.9 VS: Blood pressure 145/86, pulse 91, temperature 36.7 ?C (98.1 ?F), temperature source Temporal, resp. rate 18, height 1.626 m (5' 4), weight 40.4 kg (89 lb), SpO2 96%. No complains or overnight issues. PE: NVI LUE. Long arm splint intact. Good finger ROM Xray: N/a IMP: Left supracondylar humerus fx -- chronic? PLAN: Will apply LAC tomorrow 0700 Lab Results Component Value Date WBC 8.9 07/30/2024 HGB 11.2 (L) 07/30/2024 HCT 37.0 07/30/2024 PLT 225 07/30/2024 Normal [facility] RESPIRATORY CULTURE AND STAI Non 08-01-2024 RESPIRATORY CULTURE AND STAIN RESPIRATORY CULTURE Reference Many respiratory linus present. PSEUDOMONAS AERUGINOSA Many Pseudomonas aeruginosa (A) GRAM STAIN RESULT (A) Reference (A) Few Epithelial cells per low power field Many Polymorphonuclear leukocytes per low power field Many Gram positive cocci Moderate Gram negative diplococci Organism: PSEUDOMONAS AERUGINOSA Antibiotic CAROLYN Interpretation Status Cefepime 0.5 ug/ml S F Ciprofloxacin <=0.06 ug/ml S F Levofloxacin <=0.12 ug/ml S F Meropenem <=0.25 ug/ml S F Piperacillin / Tazobactam <=4 ug/ml S F Tobramycin <=1 ug/ml S F [ S = SUSCEPTIBLE R = RESISTANT I = INTERMEDIATE S-DD = Susceptible-dose dependent NS = Non-susceptible NO = No Interpretation ] Normal [facility] Comment on above: Performed By: #### L [id number], [id number] #### Tug Master: AMELIE ELIZABETH ([id number]) [facility] [address] [place] [address] Respiratory pathogens DNA an d RNA panel MLIANA+non-probe (Lower resp)Ordered By: Calvin Brown on 08-01-2024 Acinetobacter baumannii complex Not detected Not Detected [facility] Adenovirus Not detected Not Detected [facility] Chlamydia pneumoniae Not detected Not Detected [facility] Enterobacter cloacae complex Not detected Not Detected [facility] Escherichia coli Not detected Not Detected [facility] FLUAV RNA MILANA+non-probe Ql (Lower resp) Not detected Not Detected [facility] FLUBV RNA MILANA+non-probe Ql (Lower resp) Not detected Not Detected [facility] Haemophilus influenzae Not detected Not Detecte d [facility] Human Metapneumovirus Not detected Not Detected [facility] Human Rhinovirus/Enterovirus Not detected Not Detected [facility] Interpretation and review of laboratory results Abnormal [facility] Klebsiella (Enterobacter) aerogenes Not detected Not Detected [facility] ealt Klebsiella oxytoca Not detected Not Detected [facility] Klebsiella pneumoniae Not detected Not Detected [facility] Legionella pneumophila Not detected Not Detecte d [facility] Moraxella catarrhalis Detected Abnormal Not Detected [facility] Mycoplasma pneumoniae Not detected Not Detected [facility] Parainfluenza virus Not detected Not Detected [facility] Proteus spp Not detected Not Detected [facility] Pseudomonas aeruginosa Detected Abnormal Not Detected [facility] RSV RNA MILANA+probe Ql (Resp) Not detected Not Detected [facility] S. agalactiae Org specific cx Ql (Vag fld) Detected Abnormal Not Detected [facility] SARS-CoV-2 (COVID-19) RNA MILANA+non-probe Ql (Nph) Not detected Not Detected [facility] SARS-CoV-2 (COVID-19) RNA MILANA+probe Ql (Unsp spec) Methodology: Multiplex PCR This panel does not test for SARS-CoV-2 (Covid-19). The following antimicrobial resistance gene is reported if the appropriate organism is detected: mecA. The following antimicrobial resistance genes are reported if detected and the appropriate organisms are detected: CTX-M, IMP, KPC, NDM, OXA-48-like, and VIM. [facility] Serratia marcescens Not detected Not Detected [facility] Staphylococcus aureus Not detected Not Detected [facility] Streptococcus pneumoniae Not detected Not Detec tommy [facility] Streptococcus pyogenes Not detected Not Detecte d [facility] [id number] 07-31-2024 [id number] Ssis Etl Developer following case for Discharge Needs. Normal [facility] System [facility] [id number] 07-31-2024 [id number] [facility] Palliative Care Transitions of Care [...] short of breath when trying to eat. -House Visitor would be helpful. -BMI 15.28 -Albumin-->3.0 -Monitor. [...] Skilled Rehab Facility FACILITY/HOME CARE AGENCY NAME: [facility] Follow up with [facility] on office to call patient. [...] SIGNED: DB Aggarwal CNP 08/03/2024, 10:20 AM [facility] [phone] Rounds this am DCP: TBD Need PT/OT [...] scheduled appointment 93% on 5L last read [facility] CRP [Mass/Vol]on 07-31-2024 Interpretation and review of laboratory results Normal [facility] CT Abdomen and Pelvis WO and W [...] Report Dictated on Electronically Signed By: Brando Tejaad MD Electronically Signed Date/Time: 07/31/2024 4:14 PM [facility] Name[facility]ON[facility] 1955 [id number] Exam Date/Time: 07/31/2024 15:25 Procedure: CT CHEST [...] No destructive bone lesion or acute fractures. [facility] Brando Tejada M D - 07/31/2024 Patient Name: GONZALO DELUCA : 1955 [facility]#: [id number] Exam Date/Time: 07/31/2024 15:25 Procedure: CT CHEST [...] Electronically Signed Date/Time: 07/31/2024 4:14 PM EDT [facility] Radiology Study observation (narrative) [facility] CT Abdomen and Pelvis WO and W contrast IVOrdered By: Brando Tejada on 07-31-2024 [facility] [employer] Work Phone: CT CHEST ABDOMEN PELVIS W CO NTRASTon 07-31-2024 CT CHEST ABDOMEN PELVIS W CONTRAST Patient Name: GONZALO DELUCA : 1955 [facility]#: [id number] Exam Date/Time: 07/31/2024 15:25 Procedure: CT CHEST [...] Electronically Signed Date/Time: 07/31/2024 4:14 PM EDT Pt has not really had an appetite but today it has slightly increased. Pt has had unintentional weight loss. Pt has a history of cervical cancer. Normal [facility] Consulton 07-31-2024 Consult Nutrition Assessment Type and Reason for Visit: Initial, Consult (poor po - needs high calorie supplement) Nutrition Recommendations/Plan: Suggest to continue regular diet to promote intake. 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 -House Visitor would be helpful. -BMI 15.28 -Albumin-->3.0 -Monitor. [...] with primary attending or other consultants, Electronic small order cutter of medications, tests or procedures, Obtaining and/or reviewing separately obtained history, and Counseling and educating patient/family/caregiv er. Discharge planning: Not ready for discharge due [...] on percocet chronically for years. [facility]. Would refer to home/OP palliative care for ongoing goals of care discussions. NAEON. Continue to follow. All other systems reviewed and negative. Return tomorrow. Pain Assessment No pain Advance Care Planning Advanced Care Planning Conversation Pertinent Diagnosis/es: severe COPD, chronic respiratory failure The patient and/or surrogate consented to a voluntary Advance Care Planning conversation. Gonzalo Barrington Deluca retains capacity for medical decision-making Individuals present included: Patient. Summary of the conversation: -Introduced the palliative care s (more content not included)... Normal [facility] Consult [facility] Geriatric Medicine Inpatient Consult Service Admission Date: 07/30/2024 Admission Status: INPATIENT Chief Complaint: weight loss Reason for Appointment Geriatrics consulted for falls at home, failure to thrive Assessment & Plan Principal Problem: Adult failure [...] deficits. --Recommend outpatient follow up at [facility]) for more in depth cognitive evaluation when in usual state of health. Chronic pain --Start Tylenol 650mg BID --Takes Flexeril 5mg - ordered for BID dosing at home. Recommend avoiding/decreasing use due to fall/confusion risk. --Takes Oxycodone-Acetaminophe n 5/325mg - ordered for 4 times a [...] HS --Monitor for constipation/urinary retention - last 07/30 --Possible medication contributions: Steroids I spent [...] tests and procedures, -Communicating results to the patient/family/caregiv er, -Counseling/educating the patient/family/caregiv er, -Documenting clinical information in the patients electronic record, and -Performing a medically appropriate exam and/or evaluation Subjective: HPI 68 y.o. year-old female with PMH of COPD, cervical cancer, DDD, DJD, Lung nodules, Osteoporosis, Depression, Compression fracture, Vitamin D deficiency, anxiety, presented to [facility] on 07/30/24 with complaints of weight loss [...] memory issues for a year with progression. [place] she was managing her medications ok. Daughter felt she needed more help in the home. Lives with daughter and granddaughter. Psychiatry evaluated patient and medication adjusted. Nursing Delirium Screen (Nu-Desc): Nursing Delirium Symptom Checklist Total Score: 0 Conversation with caregiver: Karishma daughter -Secluded to herself. -Likes sweets and (more content not included)... Normal [facility] Consult Inpatient consult to orthopaedic surgery--left elbow fracture [...] close to the wall and bumped the elbow. Since she was being admitted, she stated that she thought she might as well have the elbow looked at as well. Current x-rays show a supracondylar fracture. Past Medical History Medical History[1] Past Surgical History Surgical History[2] Medications Prior to Admission medications Medication Sig Start Date End Date Taking? Authorizing Provider albuterol 108 (90 Base) MCG/ACT inhaler Inhale 2 puffs every 4 hours as needed. 08/06/21 Yes Historical Provider, aspirin 81 MG EC tablet Take 81 mg by mouth. 11/25/19 Yes Historical Provider, calcium carbonate-cholecalcife rol (Oyster Shell) 250-3.125 MG-MCG tablet Take 1 [...] Patient Position: Sitting) Pulse 87 Temp 36.4 ?C (97.6 ?F) (Temporal) Resp (!) 26 Ht 1.626 m (5' 4) Wt 40.4 kg (89 lb) SpO2 93% BMI 15.28 kg/m? General: Well-developed, very thin and malnouri (more content not included)... Normal [facility] Laboratory - Chemistry and C hemistry - challengeon 07-31-2024 TSH Qn 0.28 m[IU]/L Low [facility] Procalcitonin [Mass/Vol] 0.03 ng/mL NICHOLAS F - 0.07 ng/mL [facility] CRP [Mass/Vol] 1.4 mg/L [facility] 5.[facility] mg/L [facility] Procalcitonin [Mass/Vol]on 0 07-31-2024 Interpretation and review of laboratory results Normal [facility] PCT <0.50 = Low risk of severe sepsis and/or septic shock. PCT >2.00 = High risk of severe sepsis and/or septic shock. [facility] Progress Noteon 07-31-2024 Progress Note Speech-Language Pathology SPEECH LANGUAGE PATHOLOGY [facility] SPEECH THERAPY DIET RECOMMENDATIONS Diet: Regular solids (SOFT CHOICES as NEEDED)and Thin liquids Medications: as tolerated Precautions: - Upright positioning for all PO intake - Slow rate of intake - Small bites/sips Normal [facility] Progress Note Speech-Language Pathology SPEECH LANGUAGE PATHOLOGY [facility] Bedside Swallow Evaluation Patient Name: Gonzalo Deluca Evaluation Date: 07/31/2024 Date of : 1955 Admission Date: 07/30/2024 4:40 PM Age: 68 y.o. Room/Bed: [facility] B IMPRESSION: No s/s oropharyngeal dysphagia. No [...] needed. Pt would benefit from skilled acute OR FIRST ASSIST REGISTERED NURSE services Ensure patient tolerance of the recommended [...] be evaluated. Dysphagia History: No history of OR FIRST ASSIST REGISTERED NURSE services in EMR with retrospective chart review Baseline Diet: Regular diet with thin liquids Current Diet: Dietary Orders (From admission, onward) Start Ordered 07/31/24 1031 Supplement:AM Snack, PM Snack; Vanilla Ensure Plus Until discontinued Question Answer Comment Frequency AM Snack Frequency PM Snack Select supplement: Vanilla Ensure Plus 07/31/24 1030 07/31/24 1031 Supplement:HS Snack; Cactus Ensure Plus Until discontinued Question Answer Comment Frequency HS Snack Select supplement: Cactus Ensure Plus 07/31/24 1030 07/30/24 2313 Adult [...] List Diagnosis Date Noted Severe malnutrition (CMS/HCC) (HCC) 07/31/2024 Adult failure to thrive 07/30/2024 Falls frequently 09/20/2023 Unintentional weight loss 09/20/2023 Debility 09/20/2023 PFO (patent foramen ovale) 09/20/2023 Lumbar compression fracture, closed, initial encounter ([facility]) 02/13/2023 Nondisplaced fracture of neck of left femur ([facility]) 11/06/2022 Other specified complication of vascular prosthetic devices, implants and grafts, initial encounter ([facility]) 08/06/2021 Poor venous access 12/19/2019 H/O: CVA (cerebrovascular accident) 12/14/2019 Malignant neoplasm of exocervix ([facility]) 11/07/2019 S/P hysterectomy 11/07/2019 PNA (pneumonia) 08/02/2019 Leukocytosis 04/13/2018 Shortness of breath 04/13/2018 DDD (degenerative disc disease), cervical 04/12/2018 Recurrent major depression ([facility]) 04/12/2018 Chronic back pain 04/10/2017 COPD (chronic obstructive pulmonary disease) ([facility]) 04/10/2017 Pulmonary nodule 04/10/2017 Sciatica 04/10/2017 [...] States was sent by PCP Shortness of [id number] y.o. who presents to the emergency department [...] for failure to thrive and sent to (more content not included)... Normal [facility] Progress Note PHYSICAL THERAPY [facility] Name/MRN: Gonzalo Barrington Deluca ([id number]) Date: 07/31/2024 Chart review completed. Patient is currently OOR for testing and not available to participate in PT session. Will continue to follow and re-attempt as appropriate. Jennifer Esparza, PT [facility] Progress Note Nutrition Assessment Type and Reason for Visit: Initial, Consult (poor po - needs high calorie supplement) Nutrition Recommendations/Plan: Suggest to continue regular diet to promote intake. Upper dentures not here- denies issues -denies assist status- OR FIRST ASSIST REGISTERED NURSE ordered per MNT protocol , will initiate vanilla Ensure Plus hi pro( 350 alexus, 20 gm pro/serving) and brown Ensure plus ( 350 aleuxs, 13 gm pro/serving) Please document PO intakes-diet [...] (interosseous) Fluid Accumulation: No significant fluid accumulation Motor And Generator Assembler Strength: na Nutrition Assessment: per MD-CHIEF COMPLAINT [...] significantly hypoxic at PCP office for the scheduledappointment. Also noted to have lost even more [...] start) Anthropometric Measures: Height: 162.6 cm (5' 4) Current Body Weight: 40.4 kg (89 lb) Weight Source: Standing Scale Usual Body Weight: 56.7 kg (125 lb) (08/06/24) % Weight Change (Calculated): -28.8 [place] Body Weight (lbs) (Calculated): 120 lbs [place] Body Weight (Kg) (Calculated): 55 kg % [place] Body Weight (Calculated): 74.2 % BMI (kg/m2) [...] high calorie supplement Nutrition Monitoring and Evaluation: Behavioral-Environment al Outcomes: Knowledge or Skill Food/Nutrient Intake Outcomes: Food and Nutrient Intake, Supplement Intake Physical Signs/Symptoms Outcomes: Biochemical Data, Chewing or Swallowing, GI Status, Nausea or Vomiting, Fluid Status or Edema, Hemodynamic Status, Meal Time Behavior, Nutrition Focused Physical Findings, Skin, Weight Discharge Planning: Continue current diet, Continue Oral Nutrition Supplement Phillip Bradshaw RD Contact: [phone] or secure chat Normal [facility] RESPIRATORY PATHOGENS PANEL BY PCRon 07-31-2024 RESPIRATORY PATHOGENS PANEL BY PCR SARS-COV-2 Reference Not Detected Not Detected ADENOVIRUS Reference Not Detected Not Detected CORONAVIRUS HKU1 Reference Not Detected Not Detected CORONAVIRUS NL63 Reference Not Detected Not Detected CORONAVIRUS 229E Reference Not Detected Not Detected CORONAVIRUS OC43 Reference Not Detected Not Detected HUMAN METAPNEUMOVIRUS Reference Not Detected Not Detected HUMAN RHINOVIRUS/ENTEROVIRUS Reference Not Detected Not Detected INFLUENZA A Reference Not Detected Not Detected INFLUENZA B Reference Not Detected Not Detected PARAINFLUENZA 1 Reference Not Detected Not Detected PARAINFLUENZA 2 Reference Not Detected Not Detected PARAINFLUENZA 3 Reference Not Detected Not Detected PARAINFLUENZA 4 Reference Not Detected Not Detected RESPIRATORY SYNCYTIAL VIRUS Reference Not Detected Not Detected BORDETELLA PERTUSSIS Reference Not Detected Not Detected BORDETELLA PARAPERTUSSIS Reference Not Detected Not Detected CHLAMYDIA PNEUMONIAE Reference Not Detected Not Detected MYCOPLASMA PNEUMONIAE Reference Not Detected Not Detected ORDER COMMENTS: Methodology: Multiplex PCR Normal [facility] Comment on above: Performed By: #### L [id number], [id number] #### Tug Master: AMELIE ELIZABETH ([id number]) [facility] ([id number] Respiratory pathogens DNA an d RNA panel MILANA+non-probe (Nph)on 07-31-2024 Adenovirus Not detected Not Detected [facility] B. pertussis DNA MILANA+probe Ql (Unsp spec) Not detected Not Detected [facility] ealt Bordetella parapertussis Not detected Not Detec tommy [facility] Chlamydia pneumoniae Not detected Not Detected [facility] Coronavirus 229E Not detected Not Detected [facility] Coronavirus HKU1 Not detected Not Detected [facility] Coronavirus NL63 Not detected Not Detected [facility] Coronavirus OC43 Not detected Not Detected [facility] FLUAV RNA MILANA+non-probe Ql (Nph) Not detected Not Detected [facility] FLUBV RNA MILANA+non-probe Ql (Nph) Not detected Not Detected [facility] Human Metapneumovirus Not detected Not Detected [facility] Human Rhinovirus/Enterovirus Not detected Not Detected [facility] Interpretation and review of laboratory results Normal [facility] Mycoplasma pneumoniae Not detected Not Detected [facility] Parainfluenza 1 Not detected Not Detected [facility] Parainfluenza 2 Not detected Not Detected [facility] Parainfluenza 3 Not detected Not Detected [facility] Parainfluenza 4 Not detected Not Detected [facility] Respiratory Syncytial Virus Not detected Not Detected [facility] SARS-CoV-2 (COVID-19) RNA MILANA+non-probe Ql (Nph) Not detected Not Detected [facility] Methodology: Multipl ex PCR [facility] TSH Qnon 07-31-2024 Interpretation and review of laboratory results Abnormal [facility] BASIC METABOLIC PANELon 07-19 Anion gap [Moles/Vol] 4 mmol/L Normal 3-13 [facility] Comment on above: Performed By: #### L [id number], [id number] #### Tug Master: AMELIE ELIZABETH ([id number]) [facility] ([facility]) [address] [place] [address] Calcium [Mass/Vol] 8.8 mg/dL Normal 8.8-10.0 [facility] Comment on above: Performed By: #### L [id number], [id number] #### Tug Master: AMELIE ELIZABETH ([id number]) [facility] [address] [place] [address] [place] Chloride [Moles/Vol] 103 mmol/L Normal 98-107 [facility] Comment on above: Performed By: #### L [id number], [id number] #### Tug Master: AMELIE ELIZABETH ([id number]) [facility] ([facility] [address] [place] [address] CO2 [Moles/Vol] 37 mmol/L High 23-31 [facility] Comment on above: Performed By: #### L [id number], [id number] #### Tug Master: AMELIE ELIZABETH ([id number]) [facility] ([facility] [address] [place] [address] Creatinine [Mass/Vol] 0.63 mg/dL Normal 0.57-1.11 [facility] Comment on above: Performed By: #### L [id number], [id number] #### Tug Master: AMELIE ELIZABETH ([id number]) [facility] [address] [place] [address] GLOMERULAR FILTRATION RATE ML/MIN/1.73 SQ M.PREDICTED >90.0 Normal >60.0 [facility] Comment on above: Result Comment: Calc ulation based on the Chronic Kidney Disease Epidemiology Collaboration (CKD-EPI) equation refit without adjustment for race Performed By: #### L [id number], [id number] #### Tug Master: AMELIE ELIZABETH ([phone]) [facility] [address] [place] [address] [place] Glucose [Mass/Vol] 80 mg/dL Low 82-115 [facility] Comment on above: Performed By: #### L [id number], [id number] #### Tug Master: AMELIE ELIZABETH ([phone]) [facility] ([facility]) [address] [place] [address] Potassium [Moles/Vol] 5.0 mmol/L Normal 3.5-5.1 [facility] Comment on above: Result Comment: [facility] potassium values may be up to 0.5 mmol/L lower than serum values. Performed By: #### L [id number], [id number] #### Tug Master: AMELIE ELIZABETH ([phone]) [facility] [address] [place] [address] [place] Sodium [Moles/Vol] 144 mmol/L Normal 136-145 [facility] Comment on above: Performed By: #### L [id number], [id number] #### Tug Master: AMELIE ELIZABETH ([phone]) [facility] [address] [place] [address] [place] Urea nitrogen [Mass/Vol] 16 mg/dL Normal 9-23 [facility] Comment on above: Performed By: #### L AB900, [id number] #### Tug Master: AMELIE ELIZABETH ([phone]) [facility] [address] Basic metabolic 1998 panelon 07-30-2024 Anion gap [Moles/Vol] 4 mmol/L 3 - 13 mmol/L [facility] Calcium [Mass/Vol] 8.8 mg/dL 8.8 - 10. 0 mg/dL [facility] Chloride [Moles/Vol] 103 mmol/L 98 - 10 7 mmol/L [facility] CO2 [Moles/Vol] 37 mmol/L High 23 - 31 mmol/L [facility] Creatinine [Mass/Vol] 0.63 mg/dL 0.57 - 1.11 mg/dL [facility] GFR/1.73 sq M.predicted (S/P/Bld) [Vol rate/Area] - PINF [facility] Comment on above: Calculation based on the Chronic Kidney Disease Epidemiology Collaboration (CKD-EPI) equation refit without adjustment for race Glucose [Mass/Vol] 80 mg/dL Low 82 - 115 mg/dL [facility] Potassium [Moles/Vol] 5 mmol/L 3.5 - 5.1 mmol/L [facility] Comment on above: Plasma potassium martín ues may be up to 0.5 mmol/L lower than serum values. Sodium [Moles/Vol] 144 mmol/L 136 - 145 mmol/L [facility] Urea nitrogen [Mass/Vol] 16 mg/dL 9 - 23 mg/d L [facility] C-REACTIVE PROTEINon 025 CRP [Mass/Vol] 1.4 mg/L Normal <5.0 [facility] Comment on above: Performed By: #### L AB900, [id number] #### Tug Master: AMELIE ELIZABETH ([phone]) [facility] [address] [place] [address] CBC W Auto Differential pane l (Bld)Ordered By: Eh Alves on 07-30-2024 Basophils (Bld) [#/Vol] 0 10*3/uL 0.0 - 0.2 10*3/uL [facility] Basophils/100 WBC (Bld) 0.4 % 0.0 - 2.0 % [facility] Eosinophils (Bld) [#/Vol] 0.2 10*3/uL 0.0 - 0.5 10*3/uL [facility] Eosinophils/100 WBC (Bld) 2.7 % 0.0 - 6.0 % [facility] Erythrocyte distribution width (RBC) [Ratio] 13.4 % 11.5 - 15.0 % [facility] Hematocrit (Bld) [Volume fraction] 37 % 35.0 - 47.0 % [facility] Hemoglobin (Bld) [Mass/Vol] 11.2 g/dL Low 11.7 - 16.0 g/dL [facility] Immature granulocytes (Bld) [#/Vol] 0 10*3/uL NINF - 0.1 10*3/uL [facility] Immature granulocytes/100 WBC (Bld) 0.3 % 0.0 - 2.0 % [facility] Interpretation and review of laboratory results Abnormal [facility] Lymphocytes (Bld) [#/Vol] 1 10*3/uL 1.0 - 4.3 10*3/uL [facility] Lymphocytes/100 WBC (Bld) 10.7 % Low 15.0 - 45.0 % [facility] MCH (RBC) [Entitic mass] 31.3 pg 26. 0 - 34.0 pg [facility] MCHC (RBC) [Mass/Vol] 30.3 % Low 30.5 - 36.0 % [facility] MCV (RBC) [Entitic vol] 103.4 fL High 77.0 - 99.0 fL [facility] Monocytes (Bld) [#/Vol] 0.5 10*3/uL 0.0 - 0.9 10*3/uL [facility] Monocytes/100 WBC (Bld) 5.5 % 5.0 - 13.0 % [facility] Neutrophils (Bld) [#/Vol] 7.2 10*3/uL 1.8 - 7.5 10*3/uL [facility] Neutrophils/100 WBC (Bld) 80.4 % 38.0 - 82.0 % [facility] Nucleated RBC/100 WBC (Bld) [Ratio] 0 % [facility] [employer] Platelet mean volume (Bld) [Entitic vol] 9.5 fL 9.0 - 12.7 fL [facility] Platelets (Bld) [#/Vol] 225 10*3/uL 140 - 440 10*3/uL [facility] RBC (Bld) [#/Vol] 3.58 10*6/uL Low 3.80 - 5.2 0 10*6/uL [facility] WBC (Bld) [#/Vol] 8.9 10*3/uL 3.6 - 10.7 10*3/uL [facility] CBC WITH AUTO DIFFERENTIALon 07-30-2024 Basophils (Bld) [#/Vol] 0.0 10*3/uL Normal 0.0-0.[address] [facility] Comment on above: Performed By: #### L [id number] ####Tug Master: HANS PAULSON ([phone])[facility] ([facility])[address] [place] [address] Basophils/100 WBC (Bld) 0.4 % Normal 0.0-2.0 [facility] Comment on above: Performed By: #### L [id number] ####Tug Master: HANS PAULSON ([phone])[facility] [place] ([facility])[address] Eosinophils (Bld) [#/Vol] 0.2 10*3/uL Normal 0.0-0.[address] [facility] Comment on above: Performed By: #### L [id number] ####Tug Master: HANS PAULSON ([phone])[facility] [place] ([facility])[address] Eosinophils/100 WBC (Bld) 2.7 % Normal 0.0-6.[address] [facility] Comment on above: Performed By: #### L [id number] ####Tug Master: HANS PAULSON ([phone])[facility] [place] ([facility])[address] Erythrocyte distribution width (RBC) [Ratio] 13.4 % Normal 11.5-15.[address] [facility] Comment on above: Performed By: #### L [id number] ####Tug Master: HANS PAULSON ([phone])[facility] [place] ([facility])[address] Hematocrit (Bld) [Volume fraction] 37.0 % Normal 35.0-47.0 [facility] Comment on above: Performed By: #### L [id number] ####Tug Master: HANS ALCANTARESCOBAR ([phone])[facility] ([facility])[address] Hemoglobin (Bld) [Mass/Vol] 11.2 g/dL Low 11.7-16.0 [facility] Comment on above: Performed By: #### L [id number] ####Tug Master: HANS ALCANTARESCOBAR ([phone])[facility] ([facility])[address] [place] [address] IMMATURE GRANS % 0.3 % Normal 0.0-2.0 [facility] Comment on above: Performed By: #### L [id number] ####Tug Master: HANS ALCANTARESCOBAR ([phone])[facility] ([facility])[address] IMMATURE GRANS ABSOLUTE 0.0 10*3/uL Normal <0.1 [facility] Comment on above: Performed By: #### L [id number] ####Tug Master: HANS ALCANTARESCOBAR ([phone])[facility] ([facility])[address] Lymphocytes (Bld) [#/Vol] 1.0 10*3/uL Normal 1.0-4.3 [facility] Comment on above: Performed By: #### L [id number] ####Tug Master: HANS PAULSON ([phone])[facility] ([facility])[address] Lymphocytes/100 WBC (Bld) 10.7 % Low 15.0-45.[address] [facility] Comment on above: Performed By: #### L [id number] ####Tug Master: HANS PAULSON ([phone])[facility] [place] ([facility])[address] MCH (RBC) [Entitic mass] 31.3 pg Normal 26.0-34.[address] [facility] Comment on above: Performed By: #### L [id number] ####Tug Master: HANS PAULSON ([phone])[facility] [place] ([facility])[address] MCHC 30.3 % Low 30.5-36.[address] [facility] Comment on above: Performed By: #### L [id number] ####Tug Master: HANS PAULSON ([phone])[facility] [place] ([facility])[address] MCV (RBC) [Entitic vol] 103.4 fL High 77.0-99.0 [facility] Comment on above: Performed By: #### L [id number] ####Tug Master: HANS PAULSON ([phone])[facility] [place] ([facility])[address] Monocytes (Bld) [#/Vol] 0.5 10*3/uL Normal 0.0-0.[address] [facility] Comment on above: Performed By: #### L [id number] ####Tug Master: HANS PAULSON ([phone])[facility] [place] ([facility])[address] Monocytes/100 WBC (Bld) 5.5 % Normal 5.0-13.0 [facility] Comment on above: Performed By: #### L [id number] ####Tug Master: HANS PAULSON ([phone])[facility] [place] ([facility])[address] NEUTROPHILS ABSOLUTE 7.2 10*3/uL Normal 1.8-7.5 [facility] Comment on above: Performed By: #### L [id number] ####Tug Master: HANS PAULSON ([phone])[facility] [place] ([facility])[address] Neutrophils/100 WBC (Bld) 80.4 % Normal 38.0-82.0 [facility] Comment on above: Performed By: #### L [id number] ####Tug Master: HANS PAULSON ([phone])[facility] [place] ([facility])[address] NRBC 0.0 /100 WBCs Normal 0.0-2.0 [facility] Comment on above: Performed By: #### L [id number] ####Tug Master: HANS PAULSON ([phone])[facility] [place] ([facility])[address] Platelet mean volume (Bld) [Entitic vol] 9.5 fL Normal 9.0-12.7 [facility] Comment on above: Performed By: #### L [id number] ####Tug Master: HANS PAULSON ([phone])[facility] [place] ([facility])[address] [place] [address] [place] Platelets (Bld) [#/Vol] 225 10*3/uL Normal 140-440 [facility] Comment on above: Performed By: #### L [id number] ####Tug Master: HANS PAULSON ([phone])[facility] ([facility])[address] [place] [address] [place] RBC (Bld) [#/Vol] 3.58 10*6/uL Low 3.80-5.[address] [facility] Comment on above: Performed By: #### L [id number] ####Tug Master: HANS PAULSON ([phone])[facility] [place] ([facility])[address] [place] [address] [place] WBC (Bld) [#/Vol] 8.9 10*3/uL Normal 3.6-10.7 [facility] Comment on above: Performed By: #### L [id number] ####Tug Master: HANS [phone])[facility]IC[facility] ([facility])[address] [place] [address] Leigh 07-30-2024 CNOV Office Visit (FAMDNA ) GONZALO DELUCA ([id number]) 1955 F Date Time Provider Department 07/30/24 3:00 PM HERMINIA CASE During your visit today, we recorded the following information about you: Temperature Pulse Blood pressure Weight 98.4 degrees 106/minute 120/78 40.6 kg Height 1.641 m Herminia Case MD 07/30/2024 4:33 PM Signed 07/30/2024 Recording using [employer] software for draft documentation of the visit was discussed with the patient/authorized instruments sales representative; all questions welcomed and answered. Patient/authorized instruments sales representative agreed to proceed HPI: Gonzalo [...] - Reports constant cough and production of nasty looking crap. - Denies fever. - History of vaping. [...] Psychiatric: ( (more content not included)... Normal [facility] COMPLETE URINALYSIS WITH REF FAMILIA TO CULTURE 07-30-2024 AMORPHOUS CRYSTALS (#/HPF) IN URINE Many Abnormal Negative [facility] Comment on above: Performed By: #### L [id number] ####Tug Master: HANS PAULSON ([phone])[facility] ([facility])[address] [place] [address] BACTERIA (#/HPF) IN URINE Negative Normal Negative [facility] Comment on above: Performed By: #### L [id number] ####Tug Master: HANS PAULSON ([phone])[facility] ([facility])[address] [place] [address] BILIRUBIN, TOTAL PRESENCE IN URINE Negative Normal Negative [facility] Comment on above: Performed By: #### L [id number] ####Tug Master: HANS PAULSON ([phone])[facility] ([facility])[address] Clarity (U) Turbid Abnormal Clear [facility] Comment on above: Performed By: #### L [id number] ####Tug Master: HANS PAULSON ([phone])[facility] ([facility])[address] Color (U) Yellow Normal Lt. Yellow [facility] Comment on above: Performed By: #### L [id number] ####Tug Master: HANS PAULSON ([phone])[facility] ([facility])[address] [place] [address] GLUCOSE (MG/DL) IN URINE Normal Normal Normal (<70 ) [facility] Comment on above: Performed By: #### L [id number] ####Tug Master: HANS PAULSON ([phone])[facility] ([facility])[address] [place] [address] HEMOGLOBIN PRESENCE IN URINE Negative Normal Negative [facility] Comment on above: Performed By: #### L [id number] ####Tug Master: HANS PAULSON ([phone])[facility] ([facility])[address] [place] [address] HYALINE CASTS (#/LPF) IN URINE SEDIMENT BY MICROSCOPY 0-[address] [facility] Comment on above: Performed By: #### L [id number] ####Tug Master: HANS PAULSON ([phone])[facility] ([facility])[address] [place] [address] Ketones Ql (U) Negative Normal Negative [facility] Comment on above: Performed By: #### L [id number] ####Tug Master: HANS PAULSON ([phone])[facility] ([facility])[address] [place] [address] LEUKOCYTE ESTERASE PRESENCE IN URINE BY TEST STRIP 25 Sandra/uL Abnormal Negative [facility] Comment on above: Performed By: #### L [id number] ####Tug Master: HANS PAULSON ([phone])[facility] ([facility])[address] [place] [address] [place] MUCUS (#/LPF) IN URINE SEDIMENT Few Normal Negative [facility] Comment on above: Performed By: #### L [id number] ####Tug Master: HANS PAULSON ([phone])[facility] ([facility])[address] NITRITE PRESENCE IN URINE Negative Normal Negative [facility] Comment on above: Performed By: #### L [id number] ####Tug Master: HANS PAULSON ([phone])[facility] ([facility])[address] pH (U) 7.5 [pH] Normal 5.0-8.0 [facility] Comment on above: Performed By: #### L [id number] ####Tug Master: HANS PAULSON ([phone])[facility] ([facility])[address] Protein (U) [Mass/Vol] 10 mg/dL Abnormal Negative [facility] Comment on above: Performed By: #### L [id number] ####Tug Master: HANS PAULSON ([phone])[facility] ([facility])[address] RBC (#/HPF) IN URINE SEDIMENT 0-2 Normal 0-2 [facility] Comment on above: Performed By: #### L [id number] ####Tug Master: HANS PAULSON ([phone])[facility] ([facility])[address] Specific gravity (U) [Rel density] 1.023 Normal 1.005-1.030 [facility] Comment on above: Result Comment: KYM Gonzalez COMMENTS: A specimen with <=10 WBC is not consistent with inflammation. This specimen will not reflex to a urine culture. Performed By: #### L [id number] ####Tug Master: HANS [phone])[facility] ([facility])[address] SQUAMOUS EPITHELIAL CELLS (#/HPF) IN URINE SEDIMENT 0-2 Normal 3-5 [facility] Comment on above: Performed By: #### L [id number] ####Tug Master: HANS PAULSON ([phone])[facility] ([facility])[address] UROBILINOGEN (MG/DL) IN URINE Normal Normal Normal (0-1) [facility] Comment on above: Performed By: #### L [id number] ####Tug Master: HANS PAULSON ([phone])[facility] ([facility])[address] [place] [address] WBC (LEUKOCYTE) (#/HPF) IN URINE SEDIMENT 3-5 Normal 0-5 [facility] Comment on above: Performed By: #### L [id number] ####Tug Master: HANS ALCANTARESCOBAR ([phone])[facility] ([facility])[address] [place] [address] Cobalamin (Vitamin B12) [Mas s/Vol]on 07-30-2024 Interpretation and review of laboratory results Normal [facility] ECG 12-LEADon 07-30-2024 ECG 12-LEAD IMPRESSION: Sinus rhythm Left axis deviation Electronically Signed On 07-30-2024 21:23:27 EDT by Evelio Sterling Normal [facility] ED Provider Noteon ED Provider Note EMERGENCY DEPARTMENT ENCOUNTER Pt Name: Gonzalo [...] 04/12/2018 Allergic rhinitis Arthritis Asthma Bronchitis Cancer ([facility]) (HCC) skin Cervical cancer ([facility]) Chest pain COPD (chronic obstructive pulmonary disease) ([facility]) USE OXYGEN 3 L AT NIGHT DDD (degenerative disc disease), cervical Defect, retina, with detachment right DJD (degenerative joint disease), lumbar Emphysema lung (HCC) Former smoker Hematuria SCHEDULED FOR THE PROCEDURE /SURGERY ON 02/11/2017 Hypokalemia Lung nodules Near syncope 09/19/2023 Osteoporosis Palpitations Pneumonia Recurrent major depression ([facility]) Sciatica Thoracic compression fracture ([facility]) Vitamin D deficiency SURGICAL HISTORY Past [...] the shoulder, thigh, or buttocks daily. CALCIUM CARBONATE-CHOLECALCIFE ROL (OYSTER SHELL) 250-3.125 MG-MCG TABLET Take 1 [...] 1 tablet (20 mg) by mouth every morn (more content not included)... Normal [facility] FOLATEon 07-30-2024 FOLATE RESULT 5.2 ng/mL Low 7.0-31.4 [facility] Comment on above: Performed By: #### L [id number], [id number] #### Tug Master: AMELIE ELIZABETH ([phone]) [facility] ([facility]) [address] [place] [address] Folate [Mass/Vol]on 07-31-19 Interpretation and review of laboratory results Abnormal [facility] HEPATIC FUNCTION PANELon Albumin [Mass/Vol] 3.0 g/dL Low 3.4-4.[address] [facility] Comment on above: Performed By: #### L [id number], [id number] #### Tug Master: AMELIE ELIZABETH ([phone]) [facility] ([facility]) [address] [place] [address] ALP [Catalytic activity/Vol] 97 U/L Normal 40-150 [facility] Comment on above: Performed By: #### L [id number], [id number] #### Tug Master: AMELIE ELIZABETH ([phone]) [facility] ([facility]) [address] [place] [address] [place] ALT [Catalytic activity/Vol] 10 U/L Normal <30 [facility] Comment on above: Performed By: #### L [id number], [id number] #### Tug Master: AMELIE ELIZABETH ([phone]) [facility] ([facility]) [address] [place] [address] [place] AST [Catalytic activity/Vol] 21 U/L Normal <[address] [facility] Comment on above: Performed By: #### L [id number], [id number] #### Tug Master: AMELIE ELIZABETH ([phone]) [facility] ([facility]) [address] [place] [address] [place] Bilirubin [Mass/Vol] 0.2 mg/dL Normal <1.2 [facility] Comment on above: Performed By: #### L [id number], [id number] #### Tug Master: AMELIE ELIZABETH ([phone]) [facility] ([address] Bilirubin.indirect [Mass/Vol] 0.1 mg/dL Normal <0.5 [facility] Comment on above: Performed By: #### L [id number], [id number] #### Tug Master: AMELEI ELIZABETH ([phone]) [facility]) [address] [place] [address] Protein [Mass/Vol] 6.5 g/dL Normal 6.4-8.3 [facility] Comment on above: Result Comment: Seru m protein values are higher than plasma values. Samples from recumbent persons are lower by up to 0.5 g/dL as compared to ambulatory persons. After 60 years values are lower by up to 0.2 g/dL. Performed By: #### L [id number], [id number] #### Tug Master: AMELIE ELIZABETH ([phone]) [facility]) [address] [place] [address] Hepatic function 2000 panelo n 07-30-2024 Albumin [Mass/Vol] 3 g/dL Low 3.4 - 4.8 g/dL [facility] ALP [Catalytic activity/Vol] 97 U/L 40 - 150 U/L [facility] ALT [Catalytic activity/Vol] 10 U/L [facility] U/L [facility] AST [Catalytic activity/Vol] 21 U/L [facility] - 34 U/L [facility] Bilirubin [Mass/Vol] 0.2 mg/dL [facility] - 1.2 mg/dL [facility] Bilirubin.conjugated [Mass/Vol] 0.1 mg/dL [facility] - 0.5 mg/dL [facility] Protein [Mass/Vol] 6.5 g/dL 6.4 - 8.3 g/dL [facility] Comment on above: Serum protein values are higher than plasma values. Samples from recumbent persons are lower by up to 0.5 g/dL as compared to ambulatory persons. After 60 years values are lower by up to 0.2 g/dL. LIPASEon 07-30-2024 Lipase [Catalytic activity/Vol] 18 U/L Normal <55 [facility] Comment on above: Performed By: #### L [id number], [id number] #### Tug Master: AMELIE ELIZABETH ([phone]) [facility] ([facility]) [address] [place] [address] Laboratory - Chemistry and C hemistry - challengeon 07-30-2024 Folate [Mass/Vol] 5.2 ng/mL Low 7.0 - 31.4 ng/mL [facility] [employer] Cobalamin (Vitamin B12) [Mass/Vol] 639 pg/mL 213 - 816 pg/mL [facility] Lipase [Catalytic activity/Vol] 18 U/L NINF - 55 U/L [facility] Magnesium [Mass/Vol] 1.9 mg/dL 1.6 - 2 .6 mg/dL [facility] MAGNESIUMon 07-30-2024 Magnesium [Mass/Vol] 1.9 mg/dL Normal 1.6-2.6 [facility] Comment on above: Result Comment: KYM Gonzalez COMMENTS: Higher values can be expected in females during menses. Performed By: #### L [id number], [id number] #### Tug Master: AMELIE ELIZABETH ([phone]) [facility] ([facility]) [address] [place] [address] Magnesium [Mass/Vol]on 07-30 Higher values can be expected in females during menses. [facility] [employer] No Panel InformationOrdered By: Evelio Sterling on 07-30-2024 P [place] 53 degrees [facility] Work Phone: LA Interval 137 ms [facility] Work Phone: QRS [place] -35 degrees [facility] Work Phone: QRSD Interval 99 ms [facility] Work Phone: QT Interval 350 ms [facility] Work Phone: QTC Interval 439 ms [facility] Work Phone: T Wave [place] 43 degrees [facility] Work Phone: [facility] Work Phone: No Panel Informationon 07-30 Sinus rhythm Left axis deviation Electronically Signed On 07-30-2024 21:23:27 EDT by Evelio ReyezDO - 07/30/2024 IMPRESSION: Sinus rhythm Left axis deviation Electronically Signed On 07-30-2024 21:23:27 EDT by Evelio Sterling [facility] Interpretation and review of laboratory results Abnormal [facility] Interpretation and review of laboratory results Normal [facility] Luis E Keating DO 07/30/2024 9:53 PM Splint Application Performed by: Luis E Keating DO Authorized by: Luis E Keating DO Consent: Consent obtained: Verbal Consent given by: Patient Risks, benefits, and alternatives were discussed: yes Risks discussed: Pain, numbness and swelling Alternatives discussed: Delayed treatment and referral Picacho protocol: Patient identity confirmed: Verbally with patient [...] no immediate complications Post-procedure imaging: not applicable [facility] PROCALCITONIN TESTon 025 PROCALCITONIN 0.03 ng/mL Normal <0.07 [facility] Comment on above: Result Comment: KYM Gonzalez COMMENTS: PCT <0.50 = Low risk of severe sepsis and/or septic shock. PCT >2.00 = High risk of severe sepsis and/or septic shock. Performed By: #### L [id number], [id number] #### Tug Master: AMELIE ELIZABETH ([phone]) [facility] ([facility]) [address] [place] [address] [place] THYROID STIMULATING HORMONEo n 07-30-2024 THYROID STIMULATING HORMONE 0.28 uIU/mL Low 0.35-4.94 [facility] Comment on above: Performed By: #### L [id number], [id number] #### Tug Master: AMELIE ELIZABETH ([phone]) [facility] ([facility]) [address] [place] [address] Urinalysis complete panel (U )on 07-30-2024 Amorphous Crystals, Urine Many Abnormal Negative /HPF [facility] Bacteria LM.HPF (Urine sed) [#/Area] Negative Negative /HPF [facility] Bilirubin Ql (U) Negative Negative mg/dL [facility] Clarity (U) Turbid Abnormal Clear [facility] Color (U) Yellow Lt. Yellow [facility] Epithelial cells.squamous LM.HPF (Urine sed) [#/Area] 0-2 [facility] h Glucose Ql (U) Normal Normal (<70) mg/dL [facility] Hemoglobin Ql (U) Negative Negative mg/dL [facility] Hyaline casts Auto (Urine sed) [#/Area] 0-2 Abnormal Negative /LPF [facility] Interpretation and review of laboratory results Abnormal [facility] Ketones (U) [Mass/Vol] Negative Negat kenton mg/dL [facility] Leukocyte esterase Test strip Ql (U) 25 Abnormal Negative Sandra/uL [facility] Mucus LM.HPF (Urine sed) [#/Area] Few Negative /LPF [facility] Nitrite Ql (U) Negative Negative [facility] th pH (U) 7.5 [pH] 5.0 - 8.0 pH [facility] Protein (U) [Mass/Vol] 10 mg/dL Abnormal Negative [facility] RBC LM.HPF (Urine sed) [#/Area] 0-2 [facility] Specific gravity (U) [Rel density] 1.023 1.005 - 1.030 [facility] Urobilinogen (U) [Mass/Vol] Normal Normal (0-1) mg/dL [facility] WBC LM.HPF (Urine sed) [#/Area] 3-5 [facility] A specimen with <=10 WBC is not consistent with inflammation. This specimen will not reflex to a urine culture. [facility] VITAMIN B12on 07-30-2024 Cobalamin (Vitamin B12) [Mass/Vol] 639 pg/mL Normal 213-816 [facility] Comment on above: Performed By: #### L [id number], [id number] #### Tug Master: AMELIE ELIZABETH ([phone]) [facility] ([facility]) [address] [place] [address] Vital signsOrdered By: Evelio Sterling on 07-30-2024 Heart rate 95 /min bpm [facility] Work Phone: XR Chest Single viewon 07-30 No acute cardiopulmonary abnormality identified. Chronic appearing lung changes. Report Dictated on Electronically Signed By: Honorio Andino MD Electronically Signed Date/Time: 07/30/2024 5:42 PM EDT [facility] Patient Name: GONZALO DELUCA : 1955 [id number] Exam Date/Time: 07/30/2024 17:32 Procedure: XR CHEST [...] demonstrated. Bones are osteopenic. Other findings: None. [facility] Honorio Andino MD - 07/30/2024 Patient [...] Electronically Signed Date/Time: 07/30/2024 5:42 PM EDT [facility] Radiology Study observation (narrative) [facility] XR Elbow - left 2 Viewson Acute, obliquely oriented, slightly displaced and impacted fracture through the supracondylar region of the left elbow with associated soft tissue swelling. Report Dictated on Electronically Signed By: Honorio Andino MD Electronically Signed Date/Time: 07/30/2024 5:46 PM EDT [facility] Patient Name: GONZALO DELUCA : 1955 [id number] Exam Date/Time: 07/30/2024 17:32 Procedure: XR ELBOW [...] bones are osteopenic. No radiopaque foreign body. [facility] Honroio Andino MD - 07/30/2024 Patient Name: GONZALO DELUCA : 1955 [id number] Exam Date/Time: 07/30/2024 17:32 Procedure: XR ELBOW [...] Electronically Signed Date/Time: 07/30/2024 5:46 PM EDT [facility] Radiology Study observation (narrative) [facility] XR Elbow - left 2 ViewsOrder ed By: Honorio Andino on 07-30-2024 [facility] Work Phone: Progress Noteon 07-24-2024 Progress Note Call placed to patient, no show for port flush appointment today. LVM to return call to get rescheduled. Normal [facility] 06-30-2024 [facility] Telephone (FAMDNA) GONZALO DELUCA ([id number]) 1955 F Date Time Provider Department 06/30/24 HERMINIA CASE During your visit today, we recorded the following information about you: Whit Shay LPN 06/30/2024 10:14 AM Signed Type of letter/form/fax request - Assisted living orders Form received from [facility] on 06/29/24 floor and placed on MD desk () for completion. Completed form needs to be faxed to [phone]. Route to PA when form completed for processing Leona Castañeda APRN.SHOE TURNER 07/02/2024 2:33 PM Signed Orders signed and in outbox. Please fax. Thank you, Leona Castañeda APRN.SHOE TURNER Whit Shay LPN 07/02/2024 2:54 PM Signed Request completed and faxed. Allergies As of Date: 06/30/2024 Noted Allergy Reaction SEASONAL ALLERGIES 08/16/2017 5 - Intolerance Date Reviewed: 12/30/2023 Reviewed by: Joaquina Martinez APRN.SHOE TURNER - Fully Assessed Reason for Visit: Orders [...] Encounter Status:Closed by WHIT SHAY on 07/02/24 [facility] Helen 06-07-2024 CNPN Telephone (HCSIND) GONZALO DELUCA ([id number]) 1955 F Date Time Provider Department 06/07/24 [...] 06/10/2024 8:38 AM Signed Herminia Case MD, [facility] received a referral for [facility] services. We have made several attempts to [...] Date Reviewed: 12/30/2023 Reviewed by: Joaquina Martinez APRN.SHOE TURNER - Fully Assessed Reason for Visit: Home [...] hysterectomy [Z90.710] (more content not included)... Normal [facility] Telephone (HCSIND) GONZALO DELUCA ([id number]) 1955 F Date Time Provider Department 06/07/24 MADDI VALERO During your visit today, we recorded the following information about you: Allergies As of Date: 06/07/2024 Noted Allergy Reaction SEASONAL ALLERGIES 08/16/2017 5 - Intolerance Date Reviewed: 12/30/2023 Reviewed by: Joaquina Martinez APRN.SHOE TURNER - Fully Assessed Reason for Visit: Home [...] Encounter Status:Closed by MADDI VALERO on 06/07/24 [facility] CNPLupe 06-06-2024 CNPN Telephone (HCSIND) RAUDELSUMEETGONZALO LEBLANC ([id number]) 1955 F Date Time Provider Department 06/06/24 HERMINIA CASE During your visit today, we recorded the following information about you: Erna Diaz LPN 06/06/2024 1:02 PM Signed Herminia Case MD Thank you for the referral for Gonzalo Raudelyahir to receive home care services through [facility]. At this time, the office note [...] homebound - what is the diagnosis that C is seeing the patient for. Thank you, Erna KAMILAH Diaz Melissa, LPN 06/07/2024 12:30 PM Signed Herminia Case MD At this time, the office note is not yet completed for us to review for [facility] guidelines. Please let us know once you have an opportunity to complete it so that we can review for CMS. Also, per [facility] guidelines your office note needs to include [...] Date Reviewed: 12/30/2023 Reviewed by: Joaquina Martinez APRN.SHOE TURNER - Fully Assessed Reason for Visit: Home [...] access [I87.8] more content not included)... Normal [facility] 36on 06-05-2024 36 Pt called with christian padron to schedule appt with [employer] MECHANICIAN. Made appt with pt being past due. Pt was supposed to be seen 05/14 for 6 month surveillance appt. Called Rambo weaver and scheduled port flush for 06/12/24 at 2:00 pm. Normal [facility] 36 Patient called to obtain an order for a port flush and/or removal. Patient not sure if she needs to make an appointment. Patient would like schedule in [place]. Verified contact number for patient is correct. Normal [facility] Basic metabolic 1998 panelon 04-28-2024 Anion gap [Moles/Vol] 8 mmol/L 3 - 13 mmol/L [facility] Calcium [Mass/Vol] 9.1 mg/dL 8.8 - 10. 0 mg/dL [facility] Chloride [Moles/Vol] 102 mmol/L 98 - 10 7 mmol/L [facility] CO2 [Moles/Vol] 33 mmol/L High 23 - 31 mmol/L [facility] Creatinine [Mass/Vol] 0.78 mg/dL 0.57 - 1.11 mg/dL [facility] GFR/1.73 sq M.predicted (S/P/Bld) [Vol rate/Area] 83.4 mL/min - PINF [facility] Comment on above: Calculation based on the Chronic Kidney Disease Epidemiology Collaboration (CKD-EPI) equation refit without adjustment for race Glucose [Mass/Vol] 179 mg/dL High 82 - 115 mg/dL [facility] [employer] Interpretation and review of laboratory results Abnormal [facility] [employer] Potassium [Moles/Vol] 3.6 mmol/L 3.5 - 5.1 mmol/L [facility] Comment on above: Plasma potassium martín ues may be up to 0.5 mmol/L lower than serum values. Sodium [Moles/Vol] 143 mmol/L 136 - 145 mmol/L [facility] [employer] Urea nitrogen [Mass/Vol] 13 mg/dL 9 - 23 mg/d L [facility] [employer] CBC W Auto Differential pane l (Bld)Ordered By: Hakeem Cruz on 04-28-2024 Basophils (Bld) [#/Vol] 0 10*3/uL 0.0 - 0.2 10*3/uL [facility] [employer] Basophils/100 WBC (Bld) 0.6 % 0.0 - 2.0 % [facility] [employer] Eosinophils (Bld) [#/Vol] 0.3 10*3/uL 0.0 - 0.5 10*3/uL [facility] [employer] Eosinophils/100 WBC (Bld) 4 % 0.0 - 6.0 % [facility] [employer] Erythrocyte distribution width (RBC) [Ratio] 13.2 % 11.5 - 15.0 % [facility] [employer] Hematocrit (Bld) [Volume fraction] 37.3 % 35.0 - 47.0 % [facility] [employer] Hemoglobin (Bld) [Mass/Vol] 11.5 g/dL Low 11.7 - 16.0 g/dL [facility] [employer] Immature granulocytes (Bld) [#/Vol] 0 10*3/uL NINF - 0.1 10*3/uL [facility] [employer] Immature granulocytes/100 WBC (Bld) 0.5 % 0.0 - 2.0 % [facility] Interpretation and review of laboratory results Abnormal [facility] [employer] Lymphocytes (Bld) [#/Vol] 0.7 10*3/uL Low 1.0 - 4.3 10*3/uL [facility] [employer] Lymphocytes/100 WBC (Bld) 10.6 % Low 15.0 - 45.0 % [facility] MCH (RBC) [Entitic mass] 30.9 pg 26. 0 - 34.0 pg [facility] [employer] MCHC (RBC) [Mass/Vol] 30.8 % 30.5 - 36.0 % [facility] [employer] MCV (RBC) [Entitic vol] 100.3 fL High 77.0 - 99.0 fL [facility] [employer] Monocytes (Bld) [#/Vol] 0.4 10*3/uL 0.0 - 0.9 10*3/uL [facility] [employer] Monocytes/100 WBC (Bld) 6.5 % 5.0 - 13.0 % [facility] [employer] Neutrophils (Bld) [#/Vol] 5.1 10*3/uL 1.8 - 7.5 10*3/uL [facility] [employer] Neutrophils/100 WBC (Bld) 77.8 % 38.0 - 82.0 % [facility] [employer] Nucleated RBC/100 WBC (Bld) [Ratio] 0 % [facility] [employer] Platelet mean volume (Bld) [Entitic vol] 10 fL 9.0 - 12.7 fL [facility] [employer] Platelets (Bld) [#/Vol] 165 10*3/uL 140 - 440 10*3/uL [facility] [employer] RBC (Bld) [#/Vol] 3.72 10*6/uL Low 3.80 - 5.2 0 10*6/uL [facility] [employer] WBC (Bld) [#/Vol] 6.5 10*3/uL 3.6 - 10.7 10*3/uL [facility] CT CERVICAL SPINE WO IV CONT [facility] 04-28-2024 CT CERVICAL SPINE WO IV CONTRAST Patient Name: GONZALO DELUCA : 1955 [id number] Exam Date/Time: 04/28/2024 00:12 Procedure: CT CERVICAL [...] Electronically Signed Date/Time: 04/28/2024 12:50 AM EST [facility] CT Cervical spine WO contras ton 04-28-2024 [...] the paranasal sinuses shows no air-fluid levels. [facility] Ramses Gamble MD - 04/28/2024 [...] MD Electronically Signed Date/Time: 04/28/2024 12:50 AM [facility] Radiology Study observation (narrative) [facility] HEAD WO IV CONTRASTon CT HEAD WO IV CONTRAST Patient Name: GONZALO BAKER : 1955 Exam Date/Time: 04/28/2024 00:12 Procedure: [...] Electronically Signed Date/Time: 04/28/2024 12:50 AM EST Per ems, fall on carpeted floor. _ LOC but pt states she was dizzy and weak prior to fall. C/o L elbow and nose pain secondary fall Normal [facility] CT Head WO contraston 2024 Patient Name: GONZALO DELUCA : 1955 [id number] Exam Date/Time: 04/28/2024 00:12 Procedure: CT HEAD [...] the paranasal sinuses shows no air-fluid levels. [facility] Ramses Gamble MD - 04/28/2024 Patient Name: GONZALO DELUCA : 1955 [facility] [id number] Exam Date/Time: 04/28/2024 00:12 Procedure: CT HEAD [...] Electronically Signed Date/Time: 04/28/2024 12:50 AM EST [facility] Radiology Study observation (narrative) [facility] ECG 12-LEADon 04-28-2024 ECG 12-LEAD IMPRESSION: Sinus rhythm with normal rate, intervals and QRS duration. No acute ischemic changes. Inferior Q waves, old Electronically Signed On 04-28-2024 14:40:42 EST by Freddy Wills [facility] Laboratory - Chemistry and C hemistry - challengeon 04-28-2024 Magnesium [Mass/Vol] 2 mg/dL 1.6 - 2 .6 mg/dL [facility] Magnesium [Mass/Vol]on 04-28 Interpretation and review of laboratory results Normal [facility] Higher values can be expected in females during menses. [facility] No Panel Informationon 04-28 Impression: No acute [...] MD Electronically Signed Date/Time: 04/28/2024 12:50 AM [facility] Interpretation and review of laboratory results Normal [facility] Troponin HS Serial Baseline 4 ng/L NINF - 14 ng/L [facility] Comment on above: In individuals prese nting with symptoms > 2h, a baseline troponin <= 5 ng/L suggests acute cardiac injury is unlikely and further serial testing is generally not indicated. [facility] XR Elbow - left 3 Viewson Findings and impression: Left elbow three views performed. Bone density is normal. No fracture or dislocation seen. Report Dictated on Electronically Signed By: Ramses Gamble MD Electronically Signed Date/Time: 04/28/2024 12:23 AM [employer] [facility] Patient Name: GONZALO DELUCA : 1955 Exam Date/Time: 04/28/2024 00:01 Procedure: XR ELBOW 3+ VIEWS LEFT Ordering Provider: ALTAMIRANO JEFFREY Reason For Exam: Elbow trauma Indication: Elbow trauma. [facility] Ramses Gamble MD - 04/28/2024 Patient Name: GONZALO DELUCA : 1955 [facility]#: [id number] Exam Date/Time: 04/28/2024 00:01 Procedure: XR ELBOW 3+ VIEWS LEFT Ordering Provider: ALTAMIRANO JEFFREY Reason For Exam: Elbow trauma Indication: Elbow trauma. IMPRESSION: Findings and impression: Left elbow three views performed. Bone density is normal. No fracture or dislocation seen. Report Dictated on Electronically Signed By: Ramses Gamble MD Electronically Signed Date/Time: 04/28/2024 12:23 AM EST [facility] Radiology Study observation (narrative) [facility] XR Elbow - left 3 ViewsOrder ed By: Ramses Gabmle on 04-28-2024 [facility] Work Phone: BASIC METABOLIC PANELon Anion gap [Moles/Vol] 8 mmol/L Normal 3-13 [facility] Comment on above: Performed By: #### Arsenio AB103, LAB15, [id number] ####Tug Master: HANS PAULSON ([phone])[facility] ([facility])[address] [place] [address] Calcium [Mass/Vol] 9.1 mg/dL Normal 8.8-10.0 [facility] Comment on above: Performed By: #### Arsenio AB103, LAB15, [id number] ####Tug Master: HANS PAULSON ([phone])[facility] ([facility])[address] [place] [address] [place] Chloride [Moles/Vol] 102 mmol/L Normal 98-107 [facility] Comment on above: Performed By: #### Arsenio AB103, LAB15, [id number] ####Tug Master: HANS PAULSON ([phone])[facility] ([facility])[address] [place] [address] [place] CO2 [Moles/Vol] 33 mmol/L High 23-31 [facility] Comment on above: Performed By: #### Arsenio AB103, LAB15, [id number] ####Tug Master: HANS PAULSON ([phone])[facility] ([facility] Creatinine [Mass/Vol] 0.78 mg/dL Normal 0.57-1.11 [facility] Comment on above: Performed By: #### L AB103, LAB15, [id number] ####Tug Master: HANS PAULSON ([phone])[facility] ([facility])[address] [place] [address] [place] GLOMERULAR FILTRATION RATE ML/MIN/1.73 SQ M.PREDICTED 83.4 mL/min/1.73m*2 Normal >60.0 [facility] Comment on above: Result Comment: Calc ulation based on the Chronic Kidney Disease Epidemiology Collaboration (CKD-EPI) equation refit without adjustment for race Performed By: #### Arsenio RAGLAND, LAB15, [id number] ####Tug Master: HANS PAULSON ([phone])[facility] ([facility])[address] [place] [address] Glucose [Mass/Vol] 179 mg/dL High 82-115 [facility] Comment on above: Performed By: #### Arsenio RAGLAND, LAB15, [id number] ####Tug Master: HANS PAULSON ([phone])[facility] ([facility])[address] Potassium [Moles/Vol] 3.6 mmol/L Normal 3.5-5.1 [facility] Comment on above: Result Comment: [facility] potassium values may be up to 0.5 mmol/L lower than serum values. Performed By: #### L AB103, LAB15, [id number] ####Tug Master: HANS PAULSON ([phone])[facility] ([facility])[address] [place] [address] [place] Sodium [Moles/Vol] 143 mmol/L Normal 136-[address] [facility] Comment on above: Performed By: #### L AB103, LAB15, [id number] ####Tug Master: HANS PAULSON ([id number])[facility] [place] ([facility])[address] Urea nitrogen [Mass/Vol] 13 mg/dL Normal 9-23 [facility] Comment on above: Performed By: #### L AB103, LAB15, [id number] ####Tug Master: HANS PAULSON ([phone])[facility] ([facility])[address] CBC WITH AUTO DIFFERENTIALon 04-27-2024 Basophils (Bld) [#/Vol] 0.0 10*3/uL Normal 0.0-0.2 [facility] Comment on above: Performed By: #### L [id number] ####Tug Master: HANS PAULSON ([phone])[facility] [place] ([facility])[address] Basophils/100 WBC (Bld) 0.6 % Normal 0.0-2.0 [facility] Comment on above: Performed By: #### L [id number] ####Tug Master: HANS PAULSON ([phone])[facility] ([facility])[address] [place] [address] [place] Eosinophils (Bld) [#/Vol] 0.3 10*3/uL Normal 0.0-0.[address] [facility] Comment on above: Performed By: #### L [id number] ####Tug Master: HANS PAULSON ([phone])[facility] [place] ([facility])[address] [place] [address] [place] Eosinophils/100 WBC (Bld) 4.0 % Normal 0.0-6.[address] [facility] Comment on above: Performed By: #### L [id number] ####Tug Master: HANS PAULSON ([phone])[facility] [place] ([facility])[address] Erythrocyte distribution width (RBC) [Ratio] 13.2 % Normal 11.5-15.0 [facility] Comment on above: Performed By: #### L [id number] ####Tug Master: HANS PAULSON ([phone])[facility] [place] ([facility])[address] Hematocrit (Bld) [Volume fraction] 37.3 % Normal 35.0-47.0 [facility] Comment on above: Performed By: #### L [id number] ####Tug Master: HANS PAULSON ([phone])[facility] ([facility])[address] [place] [address] Hemoglobin (Bld) [Mass/Vol] 11.5 g/dL Low 11.7-16.0 [facility] Comment on above: Performed By: #### L [id number] ####Tug Master: HANS PAULSON ([phone])[facility] ([facility])[address] IMMATURE GRANS % 0.5 % Normal 0.0-2.0 [facility] Comment on above: Performed By: #### L [id number] ####Tug Master: HANS PAULSON ([phone])[facility] ([facility])[address] [place] [address] IMMATURE GRANS ABSOLUTE 0.0 10*3/uL Normal <0.[address] [facility] Comment on above: Performed By: #### L [id number] ####Tug Master: HANS PAULSON ([phone])[facility] [place] ([facility])[address] Lymphocytes (Bld) [#/Vol] 0.7 10*3/uL Low 1.0-4.[address] [facility] Comment on above: Performed By: #### L [id number] ####Tug Master: HANS PAULSON ([phone])[facility] ([facility])[address] Lymphocytes/100 WBC (Bld) 10.6 % Low 15.0-45.[address] [facility] Comment on above: Performed By: #### L [id number] ####Tug Master: HANS PAULSON ([phone])[facility] [place] ([facility])[address] MCH (RBC) [Entitic mass] 30.9 pg Normal 26.0-34.[address] [facility] Comment on above: Performed By: #### L [id number] ####Tug Master: HANS PAULSON ([phone])[facility] ([facility])[address] MCHC 30.8 % Normal 30.5-36.[address] [facility] Comment on above: Performed By: #### L [id number] ####Tug Master: HANS PAULSON ([phone])[facility] [place] ([facility])[address] MCV (RBC) [Entitic vol] 100.3 fL High 77.0-99.0 [facility] Comment on above: Performed By: #### L [id number] ####Tug Master: HANS PAULSON ([phone])[facility] [place] ([facility])[address] [place] [address] Monocytes (Bld) [#/Vol] 0.4 10*3/uL Normal 0.0-0.[address] [facility] Comment on above: Performed By: #### L [id number] ####Tug Master: HANS PAULSON ([phone])[facility] [place] ([facility])[address] Monocytes/100 WBC (Bld) 6.5 % Normal 5.0-13.0 [facility] Comment on above: Performed By: #### L [id number] ####Tug Master: HANS PAULSON ([phone])[facility] [place] ([facility])[address] NEUTROPHILS ABSOLUTE 5.1 10*3/uL Normal 1.8-7.5 [facility] Comment on above: Performed By: #### L [id number] ####Tug Master: HANS PAULSON ([phone])[facility] [place] ([facility])[address] Neutrophils/100 WBC (Bld) 77.8 % Normal 38.0-82.0 [facility] Comment on above: Performed By: #### L [id number] ####Tug Master: HANS PAULSON ([phone])[facility] [place] ([facility])[address] NRBC 0.0 /100 WBCs Normal 0.0-2.0 [facility] Comment on above: Performed By: #### L [id number] ####Tug Master: HANS PAULSON ([id number])[facility] [place] (SBHLAB)[address] Platelet mean volume (Bld) [Entitic vol] 10.0 fL Normal 9.0-12.7 [facility] Comment on above: Performed By: #### L [id number] ####Tug Master: HANS PAULSON ([id number])[facility] [place] (SBHLAB)[address] Platelets (Bld) [#/Vol] 165 10*3/uL Normal 140-440 [facility] Comment on above: Performed By: #### L [id number] ####Tug Master: HANS PAULSON ([id number])[facility] [place] (SBHLAB)[address] RBC (Bld) [#/Vol] 3.72 10*6/uL Low 3.80-5.20 [facility] Comment on above: Performed By: #### L [id number] ####Tug Master: HANS PAULSON ([id number])[facility] [place] (SBHLAB)[address] WBC (Bld) [#/Vol] 6.5 10*3/uL Normal 3.6-10.7 [facility] Comment on above: Performed By: #### L [id number] ####Tug Master: HANS PAULSON ([id number])[facility] [place] (SBHLAB)[address] ED Nursing Noteon 04-27-2024 ED Nursing Note Per ems, fall on carpeted floor. _ LOC but pt states she was dizzy and weak prior to fall. C/o L elbow and nose pain 2ndary fall Normal [facility] ED Provider Noteon ED Provider Note Patient: Gonzalo Deluca : 1955 Date [...] dictating provider for clarification.) Flako Altamirano MD [employer] [facility] CHIEF COMPLAINT Chief Complaint Patient presents with [...] Acute exacerbation of chronic obstructive pulmonary disease ([facility]) 04/12/2018 Allergic rhinitis Arthritis Asthma Bronchitis Cancer ([facility]) ([facility]) skin Cervical cancer ([facility]) Chest pain COPD (chronic obstructive pulmonary disease) ([facility]) USE OXYGEN 3 L AT NIGHT DDD (degenerative disc disease), cervical Defect, retina, with detachment right DJD (degenerative joint disease), lumbar Emphysema lung ([facility]) Former smoker Hematuria SCHEDULED FOR THE PROCEDURE /SURGERY ON 02/11/2017 Hypokalemia Lung nodules Near syncope 09/19/2023 Osteoporosis Palpitations Pneumonia Recurrent major depression ([facility]) Sciatica Thoracic compression fracture ([facility]) Vitamin D deficiency SURGICAL HISTORY Past [...] the shoulder, thigh, or buttocks daily. CALCIUM CARBONATE-CHOLECALCIFE ROL (OYSTER SHELL) 250-3.125 MG-MCG TABLET Take 1 tablet by mouth. DICLOFENAC SODIUM (VOLTAREN) 1 % GEL A (more content not included)... Normal [facility] HIGH SENSITIVITY TROPONIN, S ERIAL BASELINEon 04-27-2024 TROPONIN HS SERIAL BASELINE 4 ng/L Normal <=14 [facility] Comment on above: Result Comment: In i ndividuals presenting with symptoms > 2h, a baseline troponin <= 5 ng/L suggests acute cardiac injury is unlikely and further serial testing is generally not indicated. Performed By: #### L OBIE, [id number], [id number] ####Tug Master: HANS PAULSON ([id number])[facility] ([facility])[address] [place] [address] MAGNESIUMon 04-27-2024 Magnesium [Mass/Vol] 2.0 mg/dL Normal 1.6-2.6 [facility] Comment on above: Result Comment: KYM R COMMENTS: Higher values can be expected in females during menses. Performed By: #### L OBIE, LAB15, [id number] ####Tug Master: HANS PAULSON ([id number])[facility] ([facility])[address] [place] [address] CNPLupe 03-01-2024 [facility] Telephone (FAMDNA) GONZALO DELUCA ([id number]) 1955 F Date Time Provider Department 03/01/24 [...] Date Reviewed: 12/30/2023 Reviewed by: Joaquina Martinez APRN.SHOE TURNER - Fully Assessed Reason for Visit: Medication [...] Encounter Status:Closed by WHIT SHAY on 03/05/24 Normal [facility] 12-27-2023 ANUEL [facility] GONZALO DELUCA ([id number]) 1955 F Date Time Provider Department 12/27/23 HERMINIA CASE During your visit today, we recorded the following information about you: Whit Shay LPN 12/27/2023 12:51 PM Signed Type of letter/form/fax request - Home Health Care Orders Form received from [facility] on 12/26/23 floor and placed on MD desk () for completion. Completed form needs to be faxed to [phone]. Route to PA when form completed for processing Whit Shay [...] Encounter Status:Closed by WHIT SHAY on 12/27/23 [facility] [place] 12-13-2023 NADEEMN Telephone (FAMDNA) GONZALO DELUCA ([id number]) 1955 F Date Time Provider Department 12/13/23 HERMINIA CASE FAMDNA During your visit today, we recorded the following information about you: Whit Shay LPN 12/13/2023 11:03 AM Signed Type of letter/form/fax request - Home Health Care Orders Form received from [facility] on 12/12/23 floor and placed on MD desk () for completion. Completed form needs to be faxed to [phone]. Route to PA when form completed for processing Herminia Case [...] Encounter Status:Closed by WHIT SHAY on 12/14/23 [facility] 12-06-2023 ANUEL Telephone (ANALIA) GONZALO DELUCA ([id number]) 1955 F Date Time Provider Department 12/06/23 HERMINIA CASE During your visit today, we recorded the following information about you: Whit Shay LPN 12/06/2023 1:40 PM Signed Type of letter/form/fax request - Home Health Care Orders Plan of Care Certification Period-11/25/23 to 01/23/24 [facility]23 floor and placed on MD desk () for completion. Completed form needs to be faxed to [phone]. Route to PA when form completed for processing Herminia Case [...] Encounter Status:Closed by WHIT [facility]AY [facility] GONZALO DELUCA ([id number]) 1955 F Date Time Provider Department 11/14/23 HERMINIA CASE During your visit today, we recorded the following information about you: Whit Shay LPN 11/14/2023 11:47 AM Signed Type of letter/form/fax request - Home Health Care Orders Form received from [facility] on 11/13/23 floor and placed on MD desk () for completion. Completed form needs to be faxed to . Route to PA when form completed for processing Herminia Case MD 11/14/2023 12:51 PM Signed Done. Whit Shay LPN 11/14/2023 1:59 PM Signed Request completed and faxed. Allergies As of Date: 11/14/2023 Noted Allergy Reaction SEASONAL ALLERGIES 08/16/2017 5 - Intolerance Date Reviewed: 09/08/2023 Reviewed by: Tate Weathers MA - Fully Assessed Reason for Visit: Orders [111] Prescriptions as of 11/14/2023 - mirtazapine (REMERON) [...] Encounter Status:Closed by WHIT SHAY on 11/14/23 [facility] 10-28-2023 [facility] GONZALO DELUCA ([id number]) 1955 F Date Time Provider Department 10/28/23 HERMINIA CASE During your visit today, we recorded the following information about you: Whit Shay LPN 10/28/2023 9:46 AM Signed Type of letter/form/fax request - Home Health Care Orders Form received from [facility] on 10/27/23 floor and placed on MD desk () for completion. Completed form needs to be faxed to [phone]. Route to PA when form completed for processing Herminia Case [...] Encounter Status:Closed by WHIT SHAY on 10/28/23 [facility] CNPNon 10-22-2023 CNPN Telephone (4CQ) GONZALO DELUCA ([id number]) 1955 F Date Time Provider Department 10/22/23 HERMINIA CASE 4CQ During your visit today, we recorded the following information about you: Elsy Caro 10/22/2023 11:53 AM Signed [facility] PT called to report that patient [...] Encounter Status:Closed by MELVA JUÁREZ on 10/24/23 [facility] [place] 10-18-2023 NADEEMN Telephone [facility] GONZALO DELUCA ([id number]) 1955 F Date Time Provider Department 10/18/23 HERMINIA CASE During your visit today, we recorded the following information about you: Whit Shay LPN 10/18/2023 3:01 PM Signed Type of letter/form/fax request - Home Health Care Orders Form received from [facility] on 10/18/23 floor and placed on MD desk () for completion. Completed form needs to be faxed to [phone]. Route to PA when form completed for processing Whit Shay [...] Status:Closed by WHIT SHAY on 10/18/[address] [facility] [address] Chest WO contraston 10-15 1. [...] MD Electronically Signed Date/Time: 10/16/2023 9:11 PM [facility] Patient Name: GONZALO DELUCA : 1955 [id number] Exam Date/Time: 10/16/2023 20:29 Procedure: CT CHEST [...] fracture deformities. No suspicious bulky axillary adenopathy. [facility] Roxie Kwon MD - 10/16/2023 Patient Name: GONZALO DELUCA : 1955 [id number] Exam Date/Time: 10/16/2023 20:29 Procedure: CT CHEST [...] Electronically Signed Date/Time: 10/16/2023 9:11 PM EDT [facility] Radiology Study observation (narrative) [facility] WO contrastOrdered By: Roxie Kwon on 10-16-2023 [facility] [employer] Work Phone: XR Hip - left 3 Viewson 09-19 [...] Electronically Signed Date/Time: 10/16/2023 8:46 PM EDT [facility] Patient Name: GONZALO DELUCA : 1955 Exam Date/Time: 10/16/2023 20:40 Procedure: XR HIP 2 OR 3 VW LEFT Ordering Provider: HARTLEY SAMANTHA Reason For Exam: L hip pain after fall LEFT HIP: CLINICAL INDICATION: Status post fall with left hip pain TECHNIQUE: AP view the pelvis, two views of the left hip. COMPARISON: 09/19/2023 [facility] Roxie Kwon MD - [...] Electronically Signed Date/Time: 10/16/2023 8:46 PM EDT [facility] Radiology Study observation (narrative) Abe Cervantes 10-10-2023 CNPN Telephone (FAMDNA) GONZALO DELUCA ([id number]) 1955 F Date Time Provider Department 10/10/23 HERMINIA CASE During your visit today, we recorded the following information about you: Whit Shay LPN 10/10/2023 1:42 PM Signed Type of letter/form/fax request - Home Health Care Orders Form received from [facility] on 10/06/23 floor and placed on MD desk () for completion. Completed form needs to be faxed to [phone]. Route to PA when form completed for processing Herminia Case [...] Encounter Status:Closed by WHIT SHAY on 10/11/23 [facility] [place] 10-06-2023 ANUEL Telephone ([facility]) GONZALO DELUCA ([id number]) 1955 F Date Time Provider Department 10/06/23 HERMINIA CASE During your visit today, we recorded the following information about you: Gutierrez JayJessica 10/06/2023 10:34 AM Signed [facility] is calling Herminia Case MD today to report patient's home health care physical therapy will be delayed a week as patient informed them that she is not feeling well.. Patient has been identified by name and birthdate. Duration of symptoms: N/A Person calling: caregiver: Abe @ Home Call patient at: at home [phone] (home) [phone] (cell) Was an appointment scheduled: No Closing statement: Jessica Christine Gutierrez Pss Allergies As of Date: 10/06/2023 Noted [...] Status:Closed by JOAQUINA MARTINEZ on 10/06/23 Normal [facility] Basic metabolic 1998 panelon 09-22-2023 Anion gap [Moles/Vol] 10 mmol/L 3 - 13 mmol/L [facility] Calcium [Mass/Vol] 8.9 mg/dL 8.4 - 10. 4 mg/dL [facility] Chloride [Moles/Vol] 100 mmol/L 98 - 10 7 mmol/L [facility] CO2 [Moles/Vol] 30 mmol/L 22 - 30 mmol/L [facility] Creatinine [Mass/Vol] 0.39 mg/dL Low 0.52 - 1.04 mg/dL [facility] GFR/1.73 sq M.predicted MDRD (S/P/Bld) [Vol rate/Area] - PINF [facility] Comment on above: Calculation based on the Chronic Kidney Disease Epidemiology Collaboration (CKD-EPI) equation refit without adjustment for race Glucose [Mass/Vol] 109 mg/dL High 70 - 100 mg/dL [facility] Interpretation and review of laboratory results Abnormal [facility] Potassium [Moles/Vol] 4.2 mmol/L 3.5 - 5.1 mmol/L [facility] Sodium [Moles/Vol] 140 mmol/L 135 - 145 mmol/L [facility] Urea nitrogen [Mass/Vol] 11 mg/dL 7 - 17 mg/d L [facility] CBC W Auto Differential pane l (Bld)Ordered By: Rolando Shelton on 09-22-2023 Basophils (Bld) [#/Vol] 0.1 10*3/uL 0.0 - 0.2 10*3/uL [facility] Basophils/100 WBC (Bld) 0.5 % 0.0 - 2.0 % [facility] Eosinophils (Bld) [#/Vol] 0.1 10*3/uL 0.0 - 0.5 10*3/uL [facility] Eosinophils/100 WBC (Bld) 1.3 % 0.0 - 6.0 % [facility] Erythrocyte distribution width (RBC) [Ratio] 13.2 % 11.5 - 15.0 % [facility] Hematocrit (Bld) [Volume fraction] 37.5 % 35.0 - 47.0 % [facility] Hemoglobin (Bld) [Mass/Vol] 11.9 g/dL 11.7 - 16.0 g/dL [facility] Immature granulocytes (Bld) [#/Vol] 0.0 10*3/uL NINF - 0.1 10*3/uL [facility] Immature granulocytes/100 WBC (Bld) 0.3 % 0.0 - 2.0 % [facility] Interpretation and review of laboratory results Abnormal [facility] Lymphocytes (Bld) [#/Vol] 0.8 10*3/uL Low 1.0 - 4.3 10*3/uL [facility] Lymphocytes/100 WBC (Bld) 8.6 % Low 15.0 - 45.0 % [facility] MCH (RBC) [Entitic mass] 30.3 pg 26. 0 - 34.0 pg [facility] MCHC (RBC) [Mass/Vol] 31.7 % 30.5 - 36.0 % [facility] MCV (RBC) [Entitic vol] 95.4 fL 77.0 - 99.0 fL [facility] Monocytes (Bld) [#/Vol] 0.5 10*3/uL 0.0 - 0.9 10*3/uL [facility] Monocytes/100 WBC (Bld) 5.3 % 5.0 - 13.0 % [facility] Neutrophils (Bld) [#/Vol] 8.2 10*3/uL High 1.8 - 7.5 10*3/uL [facility] Neutrophils/100 WBC (Bld) 84.0 % High 38.0 - 82.0 % [facility] Nucleated RBC/100 WBC (Bld) [Ratio] 0.0 % [facility] Platelet mean volume (Bld) [Entitic vol] 9.2 fL 9.0 - 12.7 fL [facility] Platelets (Bld) [#/Vol] 289 10*3/uL 140 - 440 10*3/uL [facility] RBC (Bld) [#/Vol] 3.93 10*6/uL 3.80 - 5.2 0 10*6/uL [facility] WBC (Bld) [#/Vol] 9.8 10*3/uL 3.6 - 10.7 10*3/uL [facility] 25-hydroxyvitamin D3 [Mass/V ol]on 09-21-2023 Interpretation and review of laboratory results Normal [facility] Therapy is based on measurement of Total 25-OHD with the following classification levels: Less than 20 ng/mL: Indicative of Vit D deficiency 20-30 ng/mL: Suggests Vit D insufficiency Optimal: Greater than or equal to 30 ng/mL Test performed by [employer] Competitive Immunoassay, measuring Total Vitamin D, not individual fractions. [facility] Basic metabolic 1998 panelon 09-21-2023 Anion gap [Moles/Vol] 2 mmol/L Low 3 - 13 mmol/L [facility] Calcium [Mass/Vol] 9.1 mg/dL 8.4 - 10. 4 mg/dL [facility] Chloride [Moles/Vol] 102 mmol/L 98 - 10 7 mmol/L [facility] CO2 [Moles/Vol] 35 mmol/L High 22 - 30 mmol/L [facility] Creatinine [Mass/Vol] 0.49 mg/dL Low 0.52 - 1.04 mg/dL [facility] GFR/1.73 sq M.predicted MDRD (S/P/Bld) [Vol rate/Area] - PINF [facility] Comment on above: Calculation based on the Chronic Kidney Disease Epidemiology Collaboration (CKD-EPI) equation refit without adjustment for race Glucose [Mass/Vol] 97 mg/dL 70 - 100 mg/dL [facility] [employer] Potassium [Moles/Vol] 3.1 mmol/L Low 3.5 - 5.1 mmol/L [facility] [employer] Sodium [Moles/Vol] 139 mmol/L 135 - 145 mmol/L [facility] [employer] Urea nitrogen [Mass/Vol] 18 mg/dL High 7 - 17 mg/d L [facility] [employer] CBC W Auto Differential pane l (Bld)Ordered By: Crystal Dupont on 09-21-2023 Basophils (Bld) [#/Vol] 0.1 10*3/uL 0.0 - 0.2 10*3/uL [facility] [employer] Basophils/100 WBC (Bld) 0.5 % 0.0 - 2.0 % [facility] [employer] Eosinophils (Bld) [#/Vol] 0.8 10*3/uL High 0.0 - 0.5 10*3/uL [facility] [employer] Eosinophils/100 WBC (Bld) 8.2 % High 0.0 - 6.0 % [facility] [employer] Erythrocyte distribution width (RBC) [Ratio] 13.2 % 11.5 - 15.0 % [facility] [employer] Hematocrit (Bld) [Volume fraction] 33.9 % Low 35.0 - 47.0 % [facility] [employer] Hemoglobin (Bld) [Mass/Vol] 10.6 g/dL Low 11.7 - 16.0 g/dL [facility] [employer] Immature granulocytes (Bld) [#/Vol] 0.0 10*3/uL NINF - 0.1 10*3/uL [facility] [employer] Immature granulocytes/100 WBC (Bld) 0.2 % 0.0 - 2.0 % [facility] Interpretation and review of laboratory results Abnormal [facility] [employer] Lymphocytes (Bld) [#/Vol] 0.8 10*3/uL Low 1.0 - 4.3 10*3/uL [facility] [employer] Lymphocytes/100 WBC (Bld) 8.7 % Low 15.0 - 45.0 % [facility] [employer] MCH (RBC) [Entitic mass] 30.2 pg 26. 0 - 34.0 pg [facility] [employer] MCHC (RBC) [Mass/Vol] 31.3 % 30.5 - 36.0 % [facility] MCV (RBC) [Entitic vol] 96.6 fL 77.0 - 99.0 fL [facility] Monocytes (Bld) [#/Vol] 0.7 10*3/uL 0.0 - 0.9 10*3/uL [facility] Monocytes/100 WBC (Bld) 7.1 % 5.0 - 13.0 % [facility] Neutrophils (Bld) [#/Vol] 7.0 10*3/uL 1.8 - 7.5 10*3/uL [facility] Neutrophils/100 WBC (Bld) 75.3 % 38.0 - 82.0 % [facility] Nucleated RBC/100 WBC (Bld) [Ratio] 0.0 % [facility] Platelet mean volume (Bld) [Entitic vol] 9.5 fL 9.0 - 12.7 fL [facility] Platelets (Bld) [#/Vol] 217 10*3/uL 140 - 440 10*3/uL [facility] RBC (Bld) [#/Vol] 3.51 10*6/uL Low 3.80 - 5.2 0 10*6/uL [facility] WBC (Bld) [#/Vol] 9.4 10*3/uL 3.6 - 10.7 10*3/uL [facility] CNPLupe 09-21-2023 CNPN Telephone (PATDNA) GONZALO DELUCA ([id number]) 1955 F Date Time Provider Department 09/21/23 HERMINIA CASE During your visit today, we recorded the following information about you: Ana Maria Acosta, RN 09/21/2023 2:55 PM Signed Ashley from [facility] Patient currently admitted for falls Need orders to follow for Home Care Call back number: [phone] Melva Juárez, PAKimC 09/21/2023 4:01 PM Signed Orders or will Dr. Case follow? She will follow. We don't typically give home care orders. RODRÍGUEZ Kruse Kristina RN 09/21/2023 4:54 PM Signed Called and spoke with Vivian riley Florence They just need to confirm Dr. Case [...] by ANA MARIA ACOSTA on 09/21/23 Normal [facility] Cobalamin (Vitamin B12) [Mas s/Vol]on 09-21-2023 Interpretation and review of laboratory results Normal [facility] [employer] [facility] [employer] Laboratory - Chemistry and C hemistry - challengeon 09-21-2023 Cobalamin (Vitamin B12) [Mass/Vol] 735 pg/mL 239 - 931 pg/mL [facility] [employer] TSH Qn 1.017 m[IU]/L [facility] 25-hydroxyvitamin D3 [Mass/Vol] 30 ng/mL 30 - 100 ng/mL [facility] [employer] Magnesium [Mass/Vol] 1.5 mg/dL Low 1.6 - 2 .3 mg/dL [facility] [employer] No Panel InformationOrdered By: Raul Cao on 09-21-2023 P [place] 46 degrees [employer] Work Phone: LA Interval 142 ms [employer] Work Phone: QRS [place] -35 degrees [employer] Work Phone: QRSD Interval 102 ms [facility] [employer] Work Phone: QT Interval 382 ms [employer] Work Phone: QTC Interval 446 ms [employer] Work Phone: T Wave [place] 147 degrees [employer] Work Phone: [employer] Work Phone: No Panel Informationon 09-20 Sinus [...] On 09-21-2023 09:19:23 EDT by Raul Cao [facility] [employer] Interpretation and review of laboratory results Abnormal [facility] [employer] TSH Qnon 09-21-2023 Interpretation and review of laboratory results Normal [facility] [employer] Vital signsOrdered By: Bernadette Cao on 09-21-2023 Heart rate 82 /min bpm [facility] Phone: Basic metabolic 1998 panelon 09-20-2023 Anion gap [Moles/Vol] 5 mmol/L 3 - 13 mmol/L [facility] [employer] Calcium [Mass/Vol] 8.5 mg/dL 8.4 - 10. 4 mg/dL [facility] [employer] Chloride [Moles/Vol] 99 mmol/L 98 - 10 7 mmol/L [facility] [employer] CO2 [Moles/Vol] 33 mmol/L High 22 - 30 mmol/L [facility] [employer] Creatinine [Mass/Vol] 0.73 mg/dL 0.52 - 1.04 mg/dL [facility] [employer] GFR/1.73 sq M.predicted MDRD (S/P/Bld) [Vol rate/Area] - PINF [facility] [employer] Comment on above: Calculation based on the Chronic Kidney Disease Epidemiology Collaboration (CKD-EPI) equation refit without adjustment for race Glucose [Mass/Vol] 94 mg/dL 70 - 100 mg/dL [facility] [employer] Interpretation and review of laboratory results Abnormal [facility] [employer] Potassium [Moles/Vol] 3.1 mmol/L Low 3.5 - 5.1 mmol/L [facility] Sodium [Moles/Vol] 137 mmol/L 135 - 145 mmol/L [facility] Urea nitrogen [Mass/Vol] 28 mg/dL High 7 - 17 mg/d L [facility] CBC W Auto Differential pane l (Bld)on 09-20-2023 Basophils (Bld) [#/Vol] 0.1 10*3/uL 0.0 - 0.2 10*3/uL [facility] Basophils/100 WBC (Bld) 0.5 % 0.0 - 2.0 % [facility] Eosinophils (Bld) [#/Vol] 0.8 10*3/uL High 0.0 - 0.5 10*3/uL [facility] Eosinophils/100 WBC (Bld) 7.0 % High 0.0 - 6.0 % [facility] Erythrocyte distribution width (RBC) [Ratio] 12.9 % 11.5 - 15.0 % [facility] Hematocrit (Bld) [Volume fraction] 34.8 % Low 35.0 - 47.0 % [facility] Hemoglobin (Bld) [Mass/Vol] 11.0 g/dL Low 11.7 - 16.0 g/dL [facility] Immature granulocytes (Bld) [#/Vol] 0.0 10*3/uL NINF - 0.1 10*3/uL [facility] Immature granulocytes/100 WBC (Bld) 0.4 % 0.0 - 2.0 % [facility] Interpretation and review of laboratory results Abnormal [facility] Lymphocytes (Bld) [#/Vol] 1.3 10*3/uL 1.0 - 4.3 10*3/uL [facility] Lymphocytes/100 WBC (Bld) 11.5 % Low 15.0 - 45.0 % [facility] MCH (RBC) [Entitic mass] 30.2 pg 26. 0 - 34.0 pg [facility] MCHC (RBC) [Mass/Vol] 31.6 % 30.5 - 36.0 % [facility] MCV (RBC) [Entitic vol] 95.6 fL 77.0 - 99.0 fL [facility] Monocytes (Bld) [#/Vol] 0.7 10*3/uL 0.0 - 0.9 10*3/uL [facility] Monocytes/100 WBC (Bld) 6.0 % 5.0 - 13.0 % [facility] Neutrophils (Bld) [#/Vol] 8.2 10*3/uL High 1.8 - 7.5 10*3/uL [facility] Neutrophils/100 WBC (Bld) 74.6 % 38.0 - 82.0 % [facility] Nucleated RBC/100 WBC (Bld) [Ratio] 0.0 % [facility] Platelet mean volume (Bld) [Entitic vol] 9.4 fL 9.0 - 12.7 fL [facility] Platelets (Bld) [#/Vol] 243 10*3/uL 140 - 440 10*3/uL [facility] RBC (Bld) [#/Vol] 3.64 10*6/uL Low 3.80 - 5.2 0 10*6/uL [facility] WBC (Bld) [#/Vol] 10.9 10*3/uL High 3.6 - 10.7 10*3/uL [facility] Laboratory - Chemistry and C hemistry - challengeon 09-20-2023 Magnesium [Mass/Vol] 2.3 mg/dL 1.6 - 2 .3 mg/dL [facility] Troponin I.cardiac [Mass/Vol] 0.022 ng/mL NINF - 0.034 ng/mL [facility] Magnesium [Mass/Vol] 2.7 mg/dL High 1.6 - 2 .3 mg/dL [facility] Magnesium [Mass/Vol]on 09-19 Interpretation and review of laboratory results Normal [facility] Interpretation and review of laboratory results Abnormal [facility] Troponin I.cardiac [Mass/Vol ]on 09-20-2023 Interpretation and review of laboratory results Normal [facility] Patients with high levels of Biotin oral intake (ie >5 mg/day) may have falsely decreased Troponin levels. [facility] US Heart TransthoracicOrdere d By: Srini Vital on 09-20-2023 Ao Root Index 2.56 cm/m2 [facility] Work Phone: Aortic Root 4.0 cm [facility] Work Phone: Aortic Sinus Valsalva 4.0 cm [facility] Work Phone: Aortic Sinus Valsalva Index 2.56 cm/m2 [facility] Phone: E/E' Lateral 4.67 [facility] Phone: [phone] E/E' Ratio (Averaged) 5.13 [facility] [employer] Phone: E/E' Septal 5.60 [facility] [employer] Phone: EF BP 65 % 55 - 100 % [facility] [employer] Phone: [phone] Fractional Shortening 2D 27 % 28 - 44 % [facility] [employer] Phone: Global Longitudinal Strain -18.1 % [facility] [employer] Phone: Interpretation and review of laboratory results Abnormal [facility] [employer] Phone: [phone] IVC Diameter 1.8 cm [facility] [employer] Phone: IVSd 1.0 cm Abnormal 0.6 - 0.9 cm [facility] [employer] Phone: [phone] LA Diameter 2.8 cm [facility] [employer] Phone: LA Size Index 1.79 cm/m2 [facility] [employer] Phone: LA Volume 2C 36 mL 22 - 52 mL [facility] [employer] Phone: LA Volume 4C 31 mL 22 - 52 mL [facility] [employer] Phone: LA Volume A/L 42 mL [facility] [employer] Work Phone: LA Volume BP 39 mL 22 - 52 mL [facility] [employer] Phone: LA Volume Index 2C 23 mL/m2 16 - 34 mL/m2 [facility] [employer] Phone: LA Volume Index 4C 20 mL/m2 16 - 34 mL/m2 [facility] [employer] Phone: LA Volume Index A/L 27 mL/m2 16 - 34 mL/m2 [facility] [employer] Phone: LA Volume Index BP 25 ml/m2 16 - 34 ml/m2 [facility] [employer] Phone: LA/AO Root Ratio 0.70 [facility] Work Phone: LV E' Lateral Velocity 12 cm/s [facility] Work Phone: LV E' Septal Velocity 10 cm/s [facility] Work Phone: LV EDV A2C 56 mL [facility] Work Phone: LV EDV A4C 60 mL [facility] Work Phone: LV EDV BP 60 mL 56 - 104 mL [facility] Work Phone: LV EDV Index A2C 36 mL/m2 [facility] Work Phone: LV EDV Index A4C 38 mL/m2 [facility] Work Phone: LV EDV Index BP 38 mL/m2 [facility] Work Phone: LV Ejection Fraction A2C 60 % [facility] Work Phone: LV Ejection Fraction A4C 70 % [facility] Work Phone: LV ESV A2C 22 mL [facility] Work Phone: LV ESV A4C 18 mL [facility] Work Phone: LV ESV BP 21 mL 19 - 49 mL [facility] Work Phone: LV ESV Index A2C 14 mL/m2 [facility] Work Phone: LV ESV Index A4C 12 mL/m2 [facility] Work Phone: LV ESV Index BP 13 mL/m2 [facility] Work Phone: LV Mass 2D 158.2 g 67 - 162 g [facility] Work Phone: LV Mass 2D Index 101.4 g/m2 Abnormal 43 - 95 g/m2 [facility] Work Phone: LV RWT Ratio 0.50 [facility] Work Phone: LVIDd 4.4 cm 3.9 - 5.3 cm [facility] Work Phone: LVIDd Index 2.82 cm/m2 [facility] Work Phone: LVIDs 3.2 cm [facility] Work Phone: LVIDs Index 2.05 cm/m2 [facility] [employer] Work Phone: LVOT Area 4.2 cm2 [facility] Work Phone: LVOT Cardiac Output 6.5 liter/minute [facility] [employer] Work Phone: LVOT Diameter 2.3 cm [facility] [employer] [facility] Work Phone: LVOT Mean Gradient 2 mmHg [facility] [employer] Work Phone: LVOT Peak Gradient 3 mmHg [facility] [employer] Work Phone: [phone] LVOT Peak Velocity 0.9 m/s [facility] [employer] Work Phone: [phone] LVOT Stroke Volume Index 50.3 mL/m2 [facility] [employer] Work Phone: [phone] LVOT SV 78.5 ml [facility] [employer] Work Phone: [phone] LVOT VTI 18.9 cm [facility] [employer] Work Phone: LVPWd 1.1 cm Abnormal 0.6 - 0.9 cm [facility] [employer] Work Phone: [phone] MV A Velocity 0.55 [facility]s [facility] Work Phone: [phone] MV E Velocity 0.56 m/s [facility] Work Phone: MV E Wave Deceleration Time 192.4 ms [facility] [employer] Work Phone: MV E/A 1.02 [facility] [employer] Work Phone: RA Area 4C 28.3 mL [facility] [employer] Work Phone: RV Basal Dimension 2.7 cm [facility] Work Phone: RV Free Wall Peak S' 15 cm/s [facility] Work Phone: RV Longitudinal Dimension 5.0 cm [facility] Work Phone: RV Mid Dimension 2.4 cm [facility] Work Phone: Sinotubular Junction 3.4 cm [facility] Work Phone: TAPSE 1.9 cm 1.7 cm [facility] Work Phone: TR Max Velocity 2.90 m/s [facility] Fuentes [facility] Work Phone: TR Peak Gradient 34 mmHg [facility] Work Phone: [facility] Work Phone: Heart Transthoracicon Left Ventricle: Left ventricle size [...] Conclusions No significant valvular abnormalities. CV CPACS CBC W Auto Differential pane l (Bld)on 09-19-2023 Basophils (Bld) [#/Vol] 0.0 10*3/uL 0.0 - 0.2 10*3/uL [facility] [employer] Basophils/100 WBC (Bld) 0.2 % 0.0 - 2.0 % [facility] [employer] Eosinophils (Bld) [#/Vol] 0.3 10*3/uL 0.0 - 0.5 10*3/uL [facility] [employer] Eosinophils/100 WBC (Bld) 1.5 % 0.0 - 6.0 % [facility] [employer] Erythrocyte distribution width (RBC) [Ratio] 13.0 % 11.5 - 15.0 % [facility] [employer] Hematocrit (Bld) [Volume fraction] 39.6 % 35.0 - 47.0 % [facility] [employer] Hemoglobin (Bld) [Mass/Vol] 12.7 g/dL 11.7 - 16.0 g/dL [facility] [employer] Immature granulocytes (Bld) [#/Vol] 0.1 10*3/uL High NINF - 0.1 10*3/uL [facility] [employer] Immature granulocytes/100 WBC (Bld) 0.6 % 0.0 - 2.0 % [facility] [employer] Interpretation and review of laboratory results Abnormal [facility] [employer] Lymphocytes (Bld) [#/Vol] 1.3 10*3/uL 1.0 - 4.3 10*3/uL [facility] [employer] Lymphocytes/100 WBC (Bld) 6.5 % Low 15.0 - 45.0 % [facility] [employer] MCH (RBC) [Entitic mass] 30.4 pg 26. 0 - 34.0 pg [facility] [employer] MCHC (RBC) [Mass/Vol] 32.1 % 30.5 - 36.0 % [facility] [employer] MCV (RBC) [Entitic vol] 94.7 fL 77.0 - 99.0 fL [facility] [employer] Monocytes (Bld) [#/Vol] 1.0 10*3/uL High 0.0 - 0.9 10*3/uL [facility] [employer] Monocytes/100 WBC (Bld) 5.1 % 5.0 - 13.0 % [facility] [employer] Neutrophils (Bld) [#/Vol] 16.8 10*3/uL High 1.8 - 7.5 10*3/uL [facility] Neutrophils/100 WBC (Bld) 86.1 % High 38.0 - 82.0 % [facility] Nucleated RBC/100 WBC (Bld) [Ratio] 0.0 % [facility] Platelet mean volume (Bld) [Entitic vol] 9.3 fL 9.0 - 12.7 fL [facility] Platelets (Bld) [#/Vol] 339 10*3/uL 140 - 440 10*3/uL [facility] RBC (Bld) [#/Vol] 4.18 10*6/uL 3.80 - 5.2 0 10*6/uL [facility] WBC (Bld) [#/Vol] 19.5 10*3/uL High 3.6 - 10.7 10*3/uL [facility] CT Cervical spine WO contras ton 09-19-2023 Patient Name: [facility]ONZAL[facility] 1955 [id number] Exam Date/Time: 09/19/2023 17:44 Procedure: CT CERVICAL [...] or atelectasis of the upper lungs noted. [facility] Clark Duffy MD - 09/19/2023 Patient Name: GONZALO DELUCA : 1955 [facility]#: [id number] Exam Date/Time: 09/19/2023 17:44 Procedure: CT CERVICAL [...] Electronically Signed Date/Time: 09/19/2023 6:01 PM EDT [facility] CT Head WO contraston 2023 No intracranial traumatic injuries. Report Dictated on Electronically Signed By: Brando Tejada MD Electronically Signed Date/Time: 09/19/2023 5:55 PM EDT [facility] [facility] Patient Name: GONZALO DELUCA : 1955 [...] banding. Clear paranasal sinuses. No calvarial fractures. [facility] Brando Tejada M D - 09/19/2023 [...] Electronically Signed Date/Time: 09/19/2023 5:[address] [facility] [address] Head WO contrastOrdered B y: Brando Tejada on 09-19-2023 [facility] Work Phone: CT Thoracic spine WO contras ton 09-19-2023 [...] or atelectasis of the upper lungs noted. [facility] Clark Duffy MD - [...] Electronically Signed Date/Time: 09/19/2023 6:01 PM EDT [facility] Radiology Study observation (narrative) [facility] Comprehensive metabolic 1998 panelOrdered By: Mara Hale on 09-19-2023 Albumin [Mass/Vol] 3.9 g/dL 3.5 - 5.0 g/dL [facility] ALP [Catalytic activity/Vol] 115 U/L 38 - 126 U/L [facility] ALT [Catalytic activity/Vol] 38 U/L High 0 - 34 U/L [facility] Anion gap [Moles/Vol] 13 mmol/L 3 - 13 mmol/L [facility] AST [Catalytic activity/Vol] 35 U/L 15 - 46 U/L [facility] Bilirubin [Mass/Vol] 0.5 mg/dL 0.2 - 1 .3 mg/dL [facility] Calcium [Mass/Vol] 9.0 mg/dL 8.4 - 10. 4 mg/dL [facility] Chloride [Moles/Vol] 93 mmol/L Low 98 - 10 7 mmol/L [facility] CO2 [Moles/Vol] 35 mmol/L High 22 - 30 mmol/L [facility] Creatinine [Mass/Vol] 1.33 mg/dL High 0.52 - 1.04 mg/dL [facility] GFR/1.73 sq M.predicted MDRD (S/P/Bld) [Vol rate/Area] 44.2 mL/min/{1.73_m2} Low - PINF [facility] Comment on above: Calculation based on the Chronic Kidney Disease Epidemiology Collaboration (CKD-EPI) equation refit without adjustment for race Glucose [Mass/Vol] 99 mg/dL 70 - 100 mg/dL [facility] Interpretation and review of laboratory results Abnormal [facility] Potassium [Moles/Vol] 2.3 mmol/L Critically low 3.5 - 5.1 mmol/L [facility] Protein [Mass/Vol] 7.1 g/dL 6.3 - 8.2 g/dL [facility] Sodium [Moles/Vol] 140 mmol/L 135 - 145 mmol/L [facility] Urea nitrogen [Mass/Vol] 36 mg/dL High 7 - 17 mg/d L [facility] Laboratory - Chemistry and C hemistry - challengeon 09-19-2023 Troponin I.cardiac [Mass/Vol] 0.031 ng/mL [facility] - 0.034 ng/mL [facility] Troponin I.cardiac [Mass/Vol] 0.025 ng/mL [facility] - 0.034 ng/mL [facility] Laboratory - Chemistry and C hemistry - challengeOrdered By: Rosa Elena Puente on 09-19-2023 Base excess Calc (BldV) [Moles/Vol] 4.1 mmol/L High -3.0 - 3.0 mmol/L [facility] CO2 (BldV) [Partial pressure] 49.6 mm[Hg] [facility] CO2 [Moles/Vol] 31.4 mmol/L High 23.0 - 30.0 mmol/L [facility] HCO3 (Bld) [Moles/Vol] 29.9 mmol/L 21.0 - 30.0 mmol/L [facility] Oxygen (BldV) [Partial pressure] 50.1 mm[Hg] mm Hg [facility] pH (BldV) 7.398 [pH] 7.320 - 7.420 [facility] Laboratory - Hematology and Cell countsOrdered By: Rosa Elena Puente on 09-19-2023 Hemoglobin (Bld) [Mass/Vol] 13.4 g/dL Screen only [facility] No Panel InformationOrdered By: Rosa Elena Puente on 09-19-2023 Interpretation and review of laboratory results Abnormal [facility] Source Of Oxygen Nasal cannula [facility] Assessment of oxygenation is best done with an arterial blood gas determination. Reference ranges for pO2, bicarbonate, and base excess are for mixed venous blood. Specimens drawn from a peripheral vein will often have higher values. [facility] No Panel Informationon 09-18 P [place] 25 degrees [facility] LA Interval 140 ms [facility] QRS [place] -48 degrees [facility] QRSD Interval 103 ms [facility] QT Interval 468 ms [facility] QTC Interval 594 ms [facility] T Wave [place] 0 degrees [facility] Sinus rhythm Inferior infarct, old Prolonged QT interval No significant changes compared to previous Electronically Signed On 09-19-2023 18:04:00 EDT by Jono Robertson MD - 09/19/2023 IMPRESSION: Sinus rhythm Inferior infarct, old Prolonged QT interval No significant changes compared to previous Electronically Signed On 09-19-2023 18:04:00 EDT by Jono Weathers [facility] Impression: No acute osseous abnormality. Nonspecific sclerotic [...] Electronically Signed Date/Time: 09/19/2023 6:01 PM EDT [facility] Radiographic feature s suggestive of COPD. Compression [...] Electronically Signed Date/Time: 09/19/2023 5:26 PM EDT [facility] Radiology Study observation (narrative) [facility] No Panel InformationOrdered By: Clark Duffy on 09-19-2023 [facility] Work Phone: Troponin I.cardiac [Mass/Vol ]on 09-19-2023 Interpretation and review of laboratory results Normal [facility] Patients with high levels of Biotin oral intake (ie >5 mg/day) may have falsely decreased Troponin levels. [facility] Interpretation and review of laboratory results Normal [facility] Patients with high levels of Biotin oral intake (ie >5 mg/day) may have falsely decreased Troponin levels. [facility] Urinalysis complete panel (U )Ordered By: Chrissy Alexandra on 09-19-2023 Bacteria LM.HPF (Urine sed) [#/Area] Negative Negative /HPF [facility] Bilirubin Ql (U) Negative Negative mg/dL [facility] Clarity (U) Clear Clear [facility] Color (U) Yellow Lt. Yellow [facility] Epithelial cells.squamous LM.HPF (Urine sed) [#/Area] 0-2 [facility] Glucose Ql (U) Normal Normal (<70) mg/dL [facility] Hemoglobin Ql (U) Negative Negative mg/dL [facility] Hyaline casts Auto (Urine sed) [#/Area] 3-5 Abnormal Negative /LPF [facility] Interpretation and review of laboratory results Abnormal [facility] Ketones (U) [Mass/Vol] Negative Negat kenton mg/dL [facility] Leukocyte esterase Test strip Ql (U) Negative Negative Sandra/uL [facility] Mucus LM.HPF (Urine sed) [#/Area] Few Negative /LPF [facility] Nitrite Ql (U) Negative Negative [facility] th Non-Squamous Epithalial Cells, Urine 0-2 Abnormal Negative /HPF [facility] pH (U) 5.5 [pH] 5.0 - 8.0 pH [facility] Protein (U) [Mass/Vol] 20 mg/dL Abnormal Negative [facility] RBC LM.HPF (Urine sed) [#/Area] 0-2 [facility] Specific gravity (U) [Rel density] 1.018 1.005 - 1.030 [facility] Urobilinogen (U) [Mass/Vol] Normal Normal (0-1) mg/dL [facility] WBC LM.HPF (Urine sed) [#/Area] 3-5 [facility] Vital signsOrdered By: Rosa Elena Puente on 09-19-2023 Oxygen saturation in Venous blood 85.8 % [facility] Vital signson 09-19-2023 Heart rate 97 /min bpm [facility] XR Chest 2 Viewson Patient Name: GONZALO [...] in the midthoracic region with thoracic kyphosis. [facility] Clark Duffy MD - [...] Electronically Signed Date/Time: 09/19/2023 5:26 PM EDT [facility] Radiology Study observation (narrative) [facility] XR Pelvis 1 or 2 Viewson Patient [...] in the midthoracic region with thoracic kyphosis. [facility] Clark Duffy MD - [...] Electronically Signed Date/Time: 09/19/2023 5:26 PM EDT [facility] Radiology Study observation (narrative) Abe Maxi Abraham 09-08-2023 CNOV Office Visit (FAMDNA ) GONZALO DELUCA ([id number]) 1955 F Date Time Provider Department 09/08/23 [...] (99.3 ?F) (Temporal) Ht 164.1 cm (5' 4.61) Wt 55.5 kg (122 lb 5.7 oz) [...] Mirtazapine (REMER (more content not included)... Normal [facility] 09-06-2023 [facility] Telephone (FAMDNA) GONZALO DELUCA ([id number]) 1955 F Date Time Provider Department 09/06/23 HERMINIA CASE During your visit today, we recorded the following information about you: Lala Shelley 09/06/2023 12:30 PM Signed Gonzalo is calling Herminia Case MD today with concern regarding Electronic Communication (FAX from [facility] is going to be coming over that needs to be faxed back to them ) Patient has been identified by name and birthdate. Duration of symptoms: N/A Person calling: self daughter: Karishma Call patient at: at home [phone] (home) [phone] (cell) Was an appointment scheduled: No Closing statement: Results or non-symptom based questions: Thank you for calling [facility], your call will be returned within the next business day. Whit Turner LPN 09/07/2023 9:05 AM Signed LM for patient letting her know we have not received the form from [facility]. Whit Shay LPN Allergies As of Date: 09/06/2023 Noted Allergy Reaction SEASONAL ALLERGIES 08/16/2017 5 - Intolerance Date Reviewed: 05/02/2023 Reviewed by: Whit Shay LPN - Fully Assessed Reason for Visit: Electronic Communication [890] Cmt: FAX from [facility] is going to be coming over that [...] Status:Closed by WHIT SHAY on 09/07/23 Normal [facility] CBC W Auto Differential pane l (Bld)on 08-07-2023 Basophils (Bld) [#/Vol] 0.0 10*3/uL 0.0 - 0.2 10*3/uL [facility] Basophils/100 WBC (Bld) 0.3 % 0.0 - 2.0 % [facility] Eosinophils (Bld) [#/Vol] 0.1 10*3/uL 0.0 - 0.5 10*3/uL [facility] Eosinophils/100 WBC (Bld) 0.8 % 0.0 - 6.0 % [facility] Erythrocyte distribution width (RBC) [Ratio] 12.6 % 11.5 - 15.0 % [facility] Hematocrit (Bld) [Volume fraction] 39.2 % 35.0 - 47.0 % [facility] Hemoglobin (Bld) [Mass/Vol] 12.6 g/dL 11.7 - 16.0 g/dL [facility] [employer] Immature granulocytes (Bld) [#/Vol] 0.1 10*3/uL High NINF - 0.1 10*3/uL [facility] Immature granulocytes/100 WBC (Bld) 0.5 % 0.0 - 2.0 % [facility] Interpretation and review of laboratory results Abnormal [facility] Lymphocytes (Bld) [#/Vol] 1.0 10*3/uL 1.0 - 4.3 10*3/uL [facility] Lymphocytes/100 WBC (Bld) 9.6 % Low 15.0 - 45.0 % [facility] MCH (RBC) [Entitic mass] 30.9 pg 26. 0 - 34.0 pg [facility] MCHC (RBC) [Mass/Vol] 32.1 % 30.5 - 36.0 % [facility] MCV (RBC) [Entitic vol] 96.1 fL 77.0 - 99.0 fL [facility] Monocytes (Bld) [#/Vol] 1.3 10*3/uL High 0.0 - 0.9 10*3/uL [facility] Monocytes/100 WBC (Bld) 12.9 % 5.0 - 13.0 % [facility] [employer] Neutrophils (Bld) [#/Vol] 7.8 10*3/uL High 1.8 - 7.5 10*3/uL [facility] Neutrophils/100 WBC (Bld) 75.9 % 38.0 - 82.0 % [facility] Nucleated RBC/100 WBC (Bld) [Ratio] 0.0 % [facility] Platelet mean volume (Bld) [Entitic vol] 9.8 fL 9.0 - 12.7 fL [facility] Platelets (Bld) [#/Vol] 351 10*3/uL 140 - 440 10*3/uL [facility] RBC (Bld) [#/Vol] 4.08 10*6/uL 3.80 - 5.2 0 10*6/uL [facility] WBC (Bld) [#/Vol] 10.3 10*3/uL 3.6 - 10.7 10*3/uL [facility] COVID-19, Flu A/B, and RSV C omboon 08-07-2023 Interpretation and review of laboratory results Normal [facility] Comprehensive metabolic 1998 panelon 08-07-2023 Albumin [Mass/Vol] 4.0 g/dL 3.5 - 5.0 g/dL [facility] ALP [Catalytic activity/Vol] 282 U/L High 38 - 126 U/L [facility] ALT [Catalytic activity/Vol] 47 U/L High 0 - 34 U/L [facility] Anion gap [Moles/Vol] 11 mmol/L 3 - 13 mmol/L [facility] AST [Catalytic activity/Vol] 62 U/L High 15 - 46 U/L [facility] Bilirubin [Mass/Vol] 1.1 mg/dL 0.2 - 1 .3 mg/dL [facility] Calcium [Mass/Vol] 9.2 mg/dL 8.4 - 10. 4 mg/dL [facility] Chloride [Moles/Vol] 96 mmol/L Low 98 - 10 7 mmol/L [facility] CO2 [Moles/Vol] 35 mmol/L High 22 - 30 mmol/L [facility] Creatinine [Mass/Vol] 0.57 mg/dL 0.52 - 1.04 mg/dL [facility] GFR/1.73 sq M.predicted MDRD (S/P/Bld) [Vol rate/Area] - PINF [facility] Comment on above: Calculation based on the Chronic Kidney Disease Epidemiology Collaboration (CKD-EPI) equation refit without adjustment for race Glucose [Mass/Vol] 119 mg/dL High 70 - 100 mg/dL [facility] Interpretation and review of laboratory results Abnormal [facility] Potassium [Moles/Vol] 3.1 mmol/L Low 3.5 - 5.1 mmol/L [facility] Protein [Mass/Vol] 7.9 g/dL 6.3 - 8.2 g/dL [facility] Sodium [Moles/Vol] 142 mmol/L 135 - 145 mmol/L [facility] Urea nitrogen [Mass/Vol] 10 mg/dL 7 - 17 mg/d L [facility] CHEMISTRY SPECIMEN MODERATELY HEMOLYZED; INTERPRET WITH CAUTION! [facility] Laboratory - Chemistry and C hemistry - challengeon 08-07-2023 Lactate [Moles/Vol] 2.0 mmol/L 0.7 - 2. 0 mmol/L [facility] Laboratory - Microbiology an d Antimicrobial susceptibilityon 08-07-2023 FLUAV RNA MILANA+probe Ql (Resp) Not detected Not Detected [facility] FLUBV RNA MILANA+probe Ql (Resp) Not detected Not Detected [facility] RSV RNA MILANA+probe Ql (Resp) Not detected Not Detected [facility] SARS-CoV-2 (COVID-19) RNA MILANA+probe Ql (Resp) Not detected Not Detected [facility] SARS-CoV-2 (COVID-19) RNA MILANA+probe Ql (Unsp spec) Methodology: real-time, RT-PCR The SARS-CoV-2, Flu A/B, and RSV Combo assay is intended for in vitro diagnostic use under the FDA Emergency Use Authorization (EUA). This test has not been FDA cleared or approved. In compliance with this authorization, please visit www.fda.gov/media/3898 35/download or www.fda.gov/media/1428 36/download to access the applicable information sheets. [facility] No Panel Informationon 08-06 Interpretation and review of laboratory results Normal [facility] P [place] 38 degrees [facility] LA Interval 137 ms [facility] QRS [place] -35 degrees [facility] QRSD [facility]val 95 [facility] Interval 246 ms [facility] QTC Interval 299 ms [facility] T Wave [place] 0 degrees [facility] Sinus rhythm Inferior infarct, old Electronically Signed On 08-07-2023 15:06:03 EDT by Lorenzo Orozco CV EPIPHANY Lorenzo Orozco MD - 08/07/2023 IMPRESSION: Sinus rhythm Inferior infarct, old Electronically Signed On 08-07-2023 15:06:03 EDT by Lorenzo Orozco [facility] Vital signson 08-07-2023 Heart rate 89 /min bpm [facility] XR Chest Single viewon 08-06 1. Lines/Tubes/Devices/Allen [...] Electronically Signed Date/Time: 08/07/2023 4:05 PM EDT [facility] Patient Name: GONZALO DELUCA [...] was obtained and reviewed. Special views: None. [facility] Ramses Gamble MD - 08/07/2023 Patient [...] Electronically Signed Date/Time: 08/07/2023 4:05 PM EDT [facility] Radiology Study observation (narrative) [facility] XR Chest Single viewOrdered By: Ramses Gamble on 08-07-2023 [facility] Work Phone: TOX SCREEN ROUT URon 024 Amphetamines Confirm (U) [Mass/Vol] Negative Negative [facility] Barbiturates Urine Negative Negative [facility] Benzodiazepines Urine Negative Negative [facility] Cannabinoids Screen Ql (U) Positive Abnormal Negative [facility] Cocaine Ql (U) Negative Negative [facility] Ethanol (U) [Mass/Vol] <11 mg/dL [facility] Opiates Screen Ql (U) Negative Negative [facility] oxyCODONE cutoff Screen (U) [Mass/Vol] Positive Abnormal Negative [facility] Phencyclidine Ql (U) Negative Negative [facility] Basic metabolic 1998 panelon 02-18-2023 Anion gap [Moles/Vol] 5 mmol/L 3 - 13 mmol/L [facility] Calcium [Mass/Vol] 8.2 mg/dL Low 8.4 - 10. 4 mg/dL [facility] Chloride [Moles/Vol] 107 mmol/L 98 - 10 7 mmol/L [facility] CO2 [Moles/Vol] 28 mmol/L 22 - 30 mmol/L [facility] [facility] Creat[facility] [Mass/Vol] 0.55 mg/dL 0.52 - 1.04 mg/dL [facility] GFR/1.73 sq M.predicted MDRD (S/P/Bld) [Vol rate/Area] - PINF [facility] Comment on above: Calculation based on the Chronic Kidney Disease Epidemiology Collaboration (CKD-EPI) equation refit without adjustment for race Glucose [Mass/Vol] 113 mg/dL High 70 - 100 mg/dL [facility] Interpretation and review of laboratory results Abnormal [facility] Potassium [Moles/Vol] 3.8 mmol/L 3.5 - 5.1 mmol/L [facility] Sodium [Moles/Vol] 140 mmol/L 135 - 145 mmol/L [facility] Urea nitrogen [Mass/Vol] 14 mg/dL 7 - 17 mg/d L [facility] CBC W Auto Differential pane l (Bld)Ordered By: Yair Sanchez on 02-18-2023 Basophils (Bld) [#/Vol] 0.0 10*3/uL 0.0 - 0.2 10*3/uL [facility] Basophils/100 WBC (Bld) 0.7 % 0.0 - 2.0 % [facility] Eosinophils (Bld) [#/Vol] 0.4 10*3/uL 0.0 - 0.5 10*3/uL [facility] Eosinophils/100 WBC (Bld) 7.3 % High 1.0 - 6.0 % [facility] Erythrocyte distribution width (RBC) [Ratio] 14.0 % 11.5 - 14.5 % [facility] Hematocrit (Bld) [Volume fraction] 30.7 % Low 35.0 - 47.0 % [facility] Hemoglobin (Bld) [Mass/Vol] 10.0 g/dL Low 11.7 - 16.0 g/dL [facility] Interpretation and review of laboratory results Abnormal [facility] Lymphocytes (Bld) [#/Vol] 0.8 10*3/uL Low 1.0 - 4.3 10*3/uL [facility] Lymphocytes/100 WBC (Bld) 15.3 % Low 20.0 - 40.0 % [facility] MCH (RBC) [Entitic mass] 31.1 pg 26. 0 - 34.0 pg [facility] MCHC (RBC) [Mass/Vol] 32.7 % 32.0 - 36.0 % [facility] MCV (RBC) [Entitic vol] 95.1 fL 80.0 - 98.0 fL [facility] Monocytes (Bld) [#/Vol] 0.4 10*3/uL 0.0 - 0.8 10*3/uL [facility] Monocytes/100 WBC (Bld) 8.6 % 2.0 - 10.0 % [facility] Neutrophils (Bld) [#/Vol] 3.5 10*3/uL 1.8 - 7.0 10*3/uL [facility] Neutrophils/100 WBC (Bld) 68.1 % 40.0 - 80.0 % [facility] Nucleated RBC/100 WBC (Bld) [Ratio] 0.0 % [facility] Platelet mean volume (Bld) [Entitic vol] 7.3 fL Low 7.4 - 12.4 fL [facility] Platelets (Bld) [#/Vol] 178 10*3/uL 140 - 440 10*3/uL [facility] RBC (Bld) [#/Vol] 3.23 10*6/uL Low 3.8 - 5.20 10*6/uL [facility] WBC (Bld) [#/Vol] 5.1 10*3/uL 3.6 - 10.7 10*3/uL [facility] Laboratory - Microbiology an d Antimicrobial susceptibilityOrdered By: Savanna Cerrato on 02-18-2023 SARS-CoV-2 (COVID-19) Ag IA.rapid Ql (Resp) Negative Negative [facility] Comment on above: A negative result do es not rule out the possibility of SARS-CoV-2 infection. NAAT-based methods should be considered for symptomatic patients presenting greater than seven days after onset of symptoms. Method: Lateral flow immunoassay. Fact sheets for healthcare providers and patients can be found at the following sites: https://www.fda.gov/media/883425/download https://www.fda.gov/media/512300/download SARS-CoV-2 (COVID-19) Ag IA. rapid Ql (Resp)Ordered By: Savanna Cerrato on 02-18-2023 Interpretation and review of laboratory results Normal [facility] Basic metabolic 1998 panelon 02-17-2023 Anion gap [Moles/Vol] 7 mmol/L 3 - 13 mmol/L [facility] Calcium [Mass/Vol] 8.5 mg/dL 8.4 - 10. 4 mg/dL [facility] Chloride [Moles/Vol] 106 mmol/L 98 - 10 7 mmol/L [facility] CO2 [Moles/Vol] 28 mmol/L 22 - 30 mmol/L [facility] Creatinine [Mass/Vol] 0.49 mg/dL Low 0.52 - 1.04 mg/dL [facility] GFR/1.73 sq M.predicted MDRD (S/P/Bld) [Vol rate/Area] - PINF [facility] Comment on above: Calculation based on the Chronic Kidney Disease Epidemiology Collaboration (CKD-EPI) equation refit without adjustment for race Glucose [Mass/Vol] 115 mg/dL High 70 - 100 mg/dL [facility] Interpretation and review of laboratory results Abnormal [facility] Potassium [Moles/Vol] 3.7 mmol/L 3.5 - 5.1 mmol/L [facility] Sodium [Moles/Vol] 141 mmol/L 135 - 145 mmol/L [facility] Urea nitrogen [Mass/Vol] 14 mg/dL 7 - 17 mg/d L [facility] NM Bone Limited Viewson 11 Moderately intense tracer uptake within the L4 [...] MD Electronically Signed Date/Time: 02/17/2023 4:36 PM [facility] Patient Name: GONZALO [facility]CA [facility] 1955 [id number] Exam Date/Time: 02/17/2023 10:41 Procedure: NM BONE [...] on plain films of the lumbar spine. [facility] Raul Farmer MD - 02/17/2023 Patient Name: GONZALO DELUCA : 1955 [id number] Exam Date/Time: 02/17/2023 10:41 Procedure: NM BONE [...] Electronically Signed Date/Time: 02/17/2023 4:36 PM EST [facility] Radiology Study observation (narrative) [facility] Bone Limited ViewsOrdered By: Raul Farmer on 02-17-2023 [facility] Basic metabolic 1998 panelon 02-16-2023 Anion gap [Moles/Vol] 2 mmol/L Low 3 - 13 mmol/L [facility] Calcium [Mass/Vol] 8.3 mg/dL Low 8.4 - 10. 4 mg/dL [facility] Chloride [Moles/Vol] 105 mmol/L 98 - 10 7 mmol/L [facility] CO2 [Moles/Vol] 32 mmol/L High 22 - 30 mmol/L [facility] Creatinine [Mass/Vol] 0.58 mg/dL 0.52 - 1.04 mg/dL [facility] GFR/1.73 sq M.predicted MDRD (S/P/Bld) [Vol rate/Area] - PINF [facility] Comment on above: Calculation based on the Chronic Kidney Disease Epidemiology Collaboration (CKD-EPI) equation refit without adjustment for race Glucose [Mass/Vol] 117 mg/dL High 70 - 100 mg/dL [facility] Interpretation and review of laboratory results Abnormal [facility] Potassium [Moles/Vol] 3.3 mmol/L Low 3.5 - 5.1 mmol/L [facility] Sodium [Moles/Vol] 139 mmol/L 135 - 145 mmol/L [facility] Urea nitrogen [Mass/Vol] 16 mg/dL 7 - 17 mg/d L [facility] Laboratory - Chemistry and C hemistry - challengeon 02-16-2023 Magnesium [Mass/Vol] 1.9 mg/dL 1.6 - 2 .3 mg/dL [facility] Magnesium [Mass/Vol]on 02-16 Interpretation and review of laboratory results Normal [facility] Basic metabolic 1998 panelon 02-15-2023 Anion gap [Moles/Vol] 6 mmol/L 3 - 13 mmol/L [facility] Calcium [Mass/Vol] 8.4 mg/dL 8.4 - 10. 4 mg/dL [facility] Chloride [Moles/Vol] 104 mmol/L 98 - 10 7 mmol/L [facility] CO2 [Moles/Vol] 28 mmol/L 22 - 30 mmol/L [facility] Creatinine [Mass/Vol] 0.52 mg/dL 0.52 - 1.04 mg/dL [facility] GFR/1.73 sq M.predicted MDRD (S/P/Bld) [Vol rate/Area] - PINF [facility] Comment on above: Calculation based on the Chronic Kidney Disease Epidemiology Collaboration (CKD-EPI) equation refit without adjustment for race Glucose [Mass/Vol] 91 mg/dL 70 - 100 mg/dL [facility] Interpretation and review of laboratory results Abnormal [facility] Potassium [Moles/Vol] 3.2 mmol/L Low 3.5 - 5.1 mmol/L [facility] Sodium [Moles/Vol] 138 mmol/L 135 - 145 mmol/L [facility] Urea nitrogen [Mass/Vol] 15 mg/dL 7 - 17 mg/d L [facility] CBC panel Auto (Bld)Ordered By: Rosa Ruiz on 02-15-2023 Erythrocyte distribution width (RBC) [Ratio] 13.8 % 11.5 - 14.5 % [facility] Hematocrit (Bld) [Volume fraction] 31.2 % Low 35.0 - 47.0 % [facility] Hemoglobin (Bld) [Mass/Vol] 10.6 g/dL Low 11.7 - 16.0 g/dL [facility] Interpretation and review of laboratory results Abnormal [facility] MCH (RBC) [Entitic mass] 31.5 pg 26. 0 - 34.0 pg [facility] MCHC (RBC) [Mass/Vol] 33.9 % 32.0 - 36.0 % [facility] MCV (RBC) [Entitic vol] 92.9 fL 80.0 - 98.0 fL [facility] Platelet mean volume (Bld) [Entitic vol] 7.7 fL 7.4 - 12.4 fL [facility] Platelets (Bld) [#/Vol] 163 10*3/uL 140 - 440 10*3/uL [facility] RBC (Bld) [#/Vol] 3.36 10*6/uL Low 3.8 - 5.20 10*6/uL [facility] WBC (Bld) [#/Vol] 5.2 10*3/uL 3.6 - 10.7 10*3/uL [facility] Laboratory - Chemistry and C hemistry - challengeon 02-15-2023 Magnesium [Mass/Vol] 1.9 mg/dL 1.6 - 2 .3 mg/dL [facility] Magnesium [Mass/Vol]on 02-15 Interpretation and review of laboratory results Normal [facility] 25-hydroxyvitamin D3 [Mass/V ol]on 02-14-2023 Interpretation and review of laboratory results Normal [facility] Therapy is based on measurement of Total 25-OHD with the following classification levels: Less than 20 ng/mL: Indicative of Vit D deficiency 20-30 ng/mL: Suggests Vit D insufficiency Optimal: Greater than or equal to 30 ng/mL Test performed by [employer] Competitive Immunoassay, measuring Total Vitamin D, not individual fractions. [facility] Laboratory - Chemistry and C hemistry - challengeon 02-14-2023 25-hydroxyvitamin D3 [Mass/Vol] 37 ng/mL 30 - 100 ng/mL [facility] Basic metabolic 1998 panelon 02-13-2023 Anion gap [Moles/Vol] 7 mmol/L 3 - 13 mmol/L [facility] Calcium [Mass/Vol] 9.1 mg/dL 8.4 - 10. 4 mg/dL [facility] Chloride [Moles/Vol] 98 mmol/L 98 - 10 7 mmol/L [facility] CO2 [Moles/Vol] 32 mmol/L High 22 - 30 mmol/L [facility] Creatinine [Mass/Vol] 0.50 mg/dL Low 0.52 - 1.04 mg/dL [facility] GFR/1.73 sq M.predicted MDRD (S/P/Bld) [Vol rate/Area] - PINF [facility] Comment on above: Calculation based on the Chronic Kidney Disease Epidemiology Collaboration (CKD-EPI) equation refit without adjustment for race Glucose [Mass/Vol] 96 mg/dL 70 - 100 mg/dL [facility] Interpretation and review of laboratory results Abnormal [facility] Potassium [Moles/Vol] 3.7 mmol/L 3.5 - 5.1 mmol/L [facility] Sodium [Moles/Vol] 137 mmol/L 135 - 145 mmol/L [facility] Urea nitrogen [Mass/Vol] 13 mg/dL 7 - 17 mg/d L [facility] CBC W Auto Differential pane l (Bld)Ordered By: Kina Valverde on 02-13-2023 Basophils (Bld) [#/Vol] 0.0 10*3/uL 0.0 - 0.2 10*3/uL [facility] Basophils/100 WBC (Bld) 0.3 % 0.0 - 2.0 % [facility] Eosinophils (Bld) [#/Vol] 0.1 10*3/uL 0.0 - 0.5 10*3/uL [facility] Eosinophils/100 WBC (Bld) 0.9 % Low 1.0 - 6.0 % [facility] Erythrocyte distribution width (RBC) [Ratio] 13.8 % 11.5 - 14.5 % [facility] Hematocrit (Bld) [Volume fraction] 36.2 % 35.0 - 47.0 % [facility] Hemoglobin (Bld) [Mass/Vol] 11.9 g/dL 11.7 - 16.0 g/dL [facility] Interpretation and review of laboratory results Abnormal [facility] Lymphocytes (Bld) [#/Vol] 0.7 10*3/uL Low 1.0 - 4.3 10*3/uL [facility] Lymphocytes/100 WBC (Bld) 6.4 % Low 20.0 - 40.0 % [facility] MCH (RBC) [Entitic mass] 30.7 pg 26. 0 - 34.0 pg [facility] MCHC (RBC) [Mass/Vol] 32.7 % 32.0 - 36.0 % [facility] MCV (RBC) [Entitic vol] 93.9 fL 80.0 - 98.0 fL [facility] Monocytes (Bld) [#/Vol] 0.4 10*3/uL 0.0 - 0.8 10*3/uL [facility] Monocytes/100 WBC (Bld) 3.7 % 2.0 - 10.0 % [facility] [employer] Neutrophils (Bld) [#/Vol] 9.9 10*3/uL High 1.8 - 7.0 10*3/uL [facility] [employer] Neutrophils/100 WBC (Bld) 88.7 % High 40.0 - 80.0 % [facility] [employer] Nucleated RBC/100 WBC (Bld) [Ratio] 0.0 % [facility] [employer] Platelet mean volume (Bld) [Entitic vol] 7.3 fL Low 7.4 - 12.4 fL [facility] [employer] Platelets (Bld) [#/Vol] 212 10*3/uL 140 - 440 10*3/uL [facility] [employer] RBC (Bld) [#/Vol] 3.86 10*6/uL 3.8 - 5.20 10*6/uL [facility] [employer] WBC (Bld) [#/Vol] 11.1 10*3/uL High 3.6 - 10.7 10*3/uL [facility] [employer] [facility] XR Lumbar spine 2 or 3 Views on 02-13-2023 1. Multilevel, possible insufficiency compressive changes in the L2-L4 levels, mild and new in the L2 and L4 levels and moderate in the L3 level, similar to comparison. No other, acute osseous abnormality. 2. Degenerative change. Report Dictated on Electronically Signed By: Gianni Avila MD Electronically Signed Date/Time: 02/13/2023 8:25 PM [facility] [employer] [facility] Patient Name: GONZALO DELUCA : 1955 [...] also similar. Paraspinal soft tissues grossly unremarkable. [facility] Gianni Avila MD - [...] Electronically Signed Date/Time: 02/13/2023 8:25 PM EST [facility] Radiology Study observation (narrative) [facility] XR Shoulder - left 2 Viewson 02-13-2023 1. No acute osseous abnormality. 2. Remote posttraumatic and mild degenerative change. Report Dictated on Electronically Signed By: Gianni Avila MD Electronically Signed Date/Time: 02/13/2023 8:17 PM EST [facility] [employer] [facility] Patient Name: GONZALO DELUCA : 1955 [...] tissues grossly unremarkable. Left-sided portacatheter again noted. [facility] Gianni Avila MD - 02/13/2023 Patient Name: GONZALO DELUCA : 1955 [id number] Exam Date/Time: 02/13/2023 20:13 Procedure: XR SHOULDER [...] Electronically Signed Date/Time: 02/13/2023 8:17 PM EST [facility] Radiology Study observation (narrative) [facility] XR Shoulder - left 2 ViewsOr dered By: Gianni Avila on 02-13-2023 [facility] [employer] Work Phone: Basic metabolic 1998 panelon 11-08-2022 Anion gap [Moles/Vol] 3 mmol/L 3 - 13 mmol/L [facility] Calcium [Mass/Vol] 8.1 mg/dL Low 8.4 - 10. 4 mg/dL [facility] Chloride [Moles/Vol] 105 mmol/L 98 - 10 7 mmol/L [facility] CO2 [Moles/Vol] 27 mmol/L 22 - 30 mmol/L [facility] [employer] Creatinine [Mass/Vol] 0.65 mg/dL 0.52 - 1.04 mg/dL [facility] GFR/1.73 sq M.predicted MDRD (S/P/Bld) [Vol rate/Area] - PINF [facility] Comment on above: Calculation based on the Chronic Kidney Disease Epidemiology Collaboration (CKD-EPI) equation refit without adjustment for race Glucose [Mass/Vol] 142 mg/dL High 70 - 100 mg/dL [facility] Interpretation and review of laboratory results Abnormal [facility] Potassium [Moles/Vol] 4.1 mmol/L 3.5 - 5.1 mmol/L [facility] Sodium [Moles/Vol] 136 mmol/L 135 - 145 mmol/L [facility] Urea nitrogen [Mass/Vol] 19 mg/dL High 7 - 17 mg/d L [facility] CBC W Auto Differential pane l (Bld)Ordered By: Rolando Shelton on 11-08-2022 Basophils (Bld) [#/Vol] 0.1 10*3/uL 0.0 - 0.2 10*3/uL [facility] Basophils/100 WBC (Bld) 0.7 % 0.0 - 2.0 % [facility] Eosinophils (Bld) [#/Vol] 0.0 10*3/uL 0.0 - 0.5 10*3/uL [facility] Eosinophils/100 WBC (Bld) 0.0 % Low 1.0 - 6.0 % [facility] Erythrocyte distribution width (RBC) [Ratio] 14.7 % High 11.5 - 14.5 % [facility] Hematocrit (Bld) [Volume fraction] 29.9 % Low 35.0 - 47.0 % [facility] Hemoglobin (Bld) [Mass/Vol] 10.3 g/dL Low 11.7 - 16.0 g/dL [facility] Interpretation and review of laboratory results Abnormal [facility] Lymphocytes (Bld) [#/Vol] 0.5 10*3/uL Low 1.0 - 4.3 10*3/uL [facility] Lymphocytes/100 WBC (Bld) 5.5 % Low 20.0 - 40.0 % [facility] MCH (RBC) [Entitic mass] 32.0 pg 26. 0 - 34.0 pg [facility] MCHC (RBC) [Mass/Vol] 34.5 % 32.0 - 36.0 % [facility] MCV (RBC) [Entitic vol] 92.8 fL 80.0 - 98.0 fL [facility] Monocytes (Bld) [#/Vol] 0.6 10*3/uL 0.0 - 0.8 10*3/uL [facility] Monocytes/100 WBC (Bld) 6.8 % 2.0 - 10.0 % [facility] Neutrophils (Bld) [#/Vol] 7.9 10*3/uL High 1.8 - 7.0 10*3/uL [facility] Neutrophils/100 WBC (Bld) 87.0 % High 40.0 - 80.0 % [facility] Nucleated RBC/100 WBC (Bld) [Ratio] 0.0 % [facility] Platelet mean volume (Bld) [Entitic vol] 7.6 fL 7.4 - 12.4 fL [facility] Platelets (Bld) [#/Vol] 182 10*3/uL 140 - 440 10*3/uL [facility] RBC (Bld) [#/Vol] 3.23 10*6/uL Low 3.8 - 5.20 10*6/uL [facility] WBC (Bld) [#/Vol] 9.1 10*3/uL 3.6 - 10.7 10*3/uL [facility] Basic metabolic 1998 panelon 11-07-2022 Anion gap [Moles/Vol] 0 mmol/L Low 3 - 13 mmol/L [facility] Calcium [Mass/Vol] 8.3 mg/dL Low 8.4 - 10. 4 mg/dL [facility] Chloride [Moles/Vol] 106 mmol/L 98 - 10 7 mmol/L [facility] CO2 [Moles/Vol] 29 mmol/L 22 - 30 mmol/L [facility] Creatinine [Mass/Vol] 0.71 mg/dL 0.52 - 1.04 mg/dL [facility] GFR/1.73 sq M.predicted MDRD (S/P/Bld) [Vol rate/Area] - PINF [facility] Comment on above: Calculation based on the Chronic Kidney Disease Epidemiology Collaboration (CKD-EPI) equation refit without adjustment for race Glucose [Mass/Vol] 96 mg/dL 70 - 100 mg/dL [facility] Interpretation and review of laboratory results Abnormal [facility] Potassium [Moles/Vol] 3.8 mmol/L 3.5 - 5.1 mmol/L [facility] Sodium [Moles/Vol] 135 mmol/L 135 - 145 mmol/L [facility] Urea nitrogen [Mass/Vol] 14 mg/dL 7 - 17 mg/d L [facility] Slightly Hemolyzed [facility] CBC W Auto Differential pane l (Bld)Ordered By: Hakeem Cruz on 11-07-2022 Basophils (Bld) [#/Vol] 0.0 10*3/uL 0.0 - 0.2 10*3/uL [facility] Basophils/100 WBC (Bld) 0.4 % 0.0 - 2.0 % [facility] Eosinophils (Bld) [#/Vol] 0.5 10*3/uL 0.0 - 0.5 10*3/uL [facility] Eosinophils/100 WBC (Bld) 7.5 % High 1.0 - 6.0 % [facility] Erythrocyte distribution width (RBC) [Ratio] 14.8 % High 11.5 - 14.5 % [facility] Hematocrit (Bld) [Volume fraction] 33.8 % Low 35.0 - 47.0 % [facility] Hemoglobin (Bld) [Mass/Vol] 11.2 g/dL Low 11.7 - 16.0 g/dL [facility] Interpretation and review of laboratory results Abnormal [facility] Lymphocytes (Bld) [#/Vol] 0.7 10*3/uL Low 1.0 - 4.3 10*3/uL [facility] Lymphocytes/100 WBC (Bld) 12.2 % Low 20.0 - 40.0 % [facility] MCH (RBC) [Entitic mass] 31.0 pg 26. 0 - 34.0 pg [facility] MCHC (RBC) [Mass/Vol] 33.3 % 32.0 - 36.0 % [facility] MCV (RBC) [Entitic vol] 93.0 fL 80.0 - 98.0 fL [facility] Monocytes (Bld) [#/Vol] 0.5 10*3/uL 0.0 - 0.8 10*3/uL [facility] [employer] Monocytes/100 WBC (Bld) 7.5 % 2.0 - 10.0 % [facility] [employer] Neutrophils (Bld) [#/Vol] 4.4 10*3/uL 1.8 - 7.0 10*3/uL [facility] Neutrophils/100 WBC (Bld) 72.4 % 40.0 - 80.0 % [facility] Nucleated RBC/100 WBC (Bld) [Ratio] 0.0 % [facility] [employer] Platelet mean volume (Bld) [Entitic vol] 7.0 fL Low 7.4 - 12.4 fL [facility] [employer] Platelets (Bld) [#/Vol] 213 10*3/uL 140 - 440 10*3/uL [facility] RBC (Bld) [#/Vol] 3.63 10*6/uL Low 3.8 - 5.20 10*6/uL [facility] WBC (Bld) [#/Vol] 6.0 10*3/uL 3.6 - 10.7 10*3/uL [facility] No Panel Informationon 11-07 There is no interpretation needed for this exam. IMAGING Sinus rhythm Inferior infarct, old Electronically Signed On 11-07-2022 1:11:05 EDT by Melva Hull CV Melva Albrecht, - 11/07/2022 IMPRESSION: Sinus rhythm Inferior infarct, old Electronically Signed On 11-07-2022 1:11:05 EDT by Melva Hull [facility] No Panel InformationOrdered By: Melva Hull on 11-07-2022 P [place] 69 degrees [facility] Work Phone: LA Interval 152 ms [facility] Work Phone: QRS [place] -35 degrees [facility] Work Phone: QRSD Interval 98 ms [facility] [email or web address] [facility] Work Phone: QT Interval 395 ms [facility] Work Phone: QTC Interval 473 ms [facility] Work Phone: T Wave [place] -12 degrees [facility] Work Phone: [facility] Work Phone: Urinalysis complete panel (U )on 11-07-2022 Bilirubin Ql (U) Negative Negative mg/dL [facility] Clarity (U) Clear Clear [facility] Color (U) Yellow Lt. Yellow [facility] Glucose Ql (U) Normal Normal (<70) mg/dL [facility] Hemoglobin Ql (U) Negative Negative mg/dL [facility] Interpretation and review of laboratory results Normal [facility] Ketones (U) [Mass/Vol] Negative Negat kenton mg/dL [facility] Leukocyte esterase Test strip Ql (U) Negative Negative Sandra/uL [facility] Nitrite Ql (U) Negative Negative [facility] th pH (U) 6.5 [pH] 5.0 - 8.0 pH [facility] Protein (U) [Mass/Vol] Negative Negat kenton mg/dL [facility] Specific gravity (U) [Rel density] 1.025 1.005 - 1.030 [facility] Urobilinogen (U) [Mass/Vol] Normal Normal (0-1) mg/dL [facility] Vital signsOrdered By: Celio Hull on 11-07-2022 Heart rate 121 /min bpm [facility] [employer] Work Phone: Basic metabolic 1998 panelon 11-06-2022 Anion gap [Moles/Vol] 2 mmol/L Low 3 - 13 mmol/L [facility] Calcium [Mass/Vol] 8.4 mg/dL 8.4 - 10. 4 mg/dL [facility] Chloride [Moles/Vol] 105 mmol/L 98 - 10 7 mmol/L [facility] CO2 [Moles/Vol] 30 mmol/L 22 - 30 mmol/L [facility] Creatinine [Mass/Vol] 0.66 mg/dL 0.52 - 1.04 mg/dL [facility] GFR/1.73 sq M.predicted MDRD (S/P/Bld) [Vol rate/Area] - PINF [facility] Comment on above: Calculation based on the Chronic Kidney Disease Epidemiology Collaboration (CKD-EPI) equation refit without adjustment for race Glucose [Mass/Vol] 99 mg/dL 70 - 100 mg/dL [facility] Interpretation and review of laboratory results Abnormal [facility] Potassium [Moles/Vol] 3.5 mmol/L 3.5 - 5.1 mmol/L [facility] Sodium [Moles/Vol] 137 mmol/L 135 - 145 mmol/L [facility] Urea nitrogen [Mass/Vol] 12 mg/dL 7 - 17 mg/d L [facility] CBC panel Auto (Bld)Ordered By: Desiree Ho on 11-06-2022 Erythrocyte distribution width (RBC) [Ratio] 14.9 % High 11.5 - 14.5 % [facility] Hematocrit (Bld) [Volume fraction] 36.4 % 35.0 - 47.0 % [facility] Hemoglobin (Bld) [Mass/Vol] 12.1 g/dL 11.7 - 16.0 g/dL [facility] Interpretation and review of laboratory results Abnormal [facility] MCH (RBC) [Entitic mass] 31.0 pg 26. 0 - 34.0 pg [facility] MCHC (RBC) [Mass/Vol] 33.3 % 32.0 - 36.0 % [facility] MCV (RBC) [Entitic vol] 93.2 fL 80.0 - 98.0 fL [facility] Platelet mean volume (Bld) [Entitic vol] 7.2 fL Low 7.4 - 12.4 fL [facility] Platelets (Bld) [#/Vol] 238 10*3/uL 140 - 440 10*3/uL [facility] RBC (Bld) [#/Vol] 3.91 10*6/uL 3.8 - 5.20 10*6/uL [facility] WBC (Bld) [#/Vol] 10.3 10*3/uL 3.6 - 10.7 10*3/uL [facility] No Panel Informationon 11-06 Radiology Study observation (narrative) [facility] X[facility] Hand - right 3 Viewson No fracture or acute osseous injury. Report Dictated on Electronically Signed By: Ankit Tripathi MD Electronically Signed Date/Time: 11/06/2022 2:14 PM T [facility] Patient Name: GONZALO DELUCA [...] Otherwise no significant productive or erosive arthropathy. [facility] Ankit Tripathi MD - 11/06/2022 Patient [...] Electronically Signed Date/Time: 11/06/2022 2:14 PM EDT [facility] [employer] [facility] XR Hip - left 3 Viewson 10-19 Impression: Intertrochanteric left hip fracture, with foreshortening of the fracture fragments. Report Dictated on Electronically Signed By: Ankit Tripathi MD Electronically Signed Date/Time: 11/06/2022 2:28 PM EDT [facility] Patient Name: GONZALO DELUCA : 1955 [...] of erosion or widening. Normal osseous mineralization. [facility] Ankit Tripathi MD - [...] Electronically Signed Date/Time: 11/06/2022 2:28 PM EDT [facility] XR Ribs - left 2 Viewson 1. No acute cardiopulmonary disease. 2. Pulmonary hyperinflation. 3. Normal ribs. Report Dictated on Electronically Signed By: Ankit Tripathi MD Electronically Signed Date/Time: 11/06/2022 2:26 PM EDT [facility] Patient Name: GONZALO DELUCA : 1955 Exam Date/Time: 11/06/2022 14:18 Procedure: XR RIBS 2 VIEWS LEFT Ordering Provider: MCCANN JOSEPH Reason For Exam: Rib pain, fx suspected RIGHT RIBS AND CHEST CLINICAL INDICATION: Pain. TECHNIQUE: Three views were obtained COMPARISON: Correlation with chest radiograph May 21, 2022. FINDINGS: Stable appearance/location of the left-sided chest [id number] line. The cardiac and mediastinal silhouettes are unremarkable. The hyperinflated lungs demonstrate no consolidation or area of atelectasis. The costophrenic angles are sharp. No pneumothorax is noted. The ribs demonstrate no evidence for fracture or bone lesion. [facility] Ankit Tripathi MD - 11/06/2022 Patient Name: GONZALO DELUCA : 1955 [id number] Exam Date/Time: 11/06/2022 14:18 Procedure: XR RIBS 2 VIEWS LEFT Ordering Provider: MCCANN JOSEPH Reason For Exam: Rib pain, fx suspected RIGHT RIBS AND CHEST CLINICAL INDICATION: Pain. TECHNIQUE: Three views were obtained COMPARISON: Correlation with chest radiograph May 21, 2022. FINDINGS: Stable appearance/location of the left-sided chest [id number] line. The cardiac and mediastinal silhouettes are [...] Electronically Signed Date/Time: 11/06/2022 2:26 PM EDT [facility] Radiology Study observation (narrative) [facility] XR Ribs - left 2 ViewsOrdere d By: Ankit Tripathi on 11-06-2022 [employer] Work Phone: CBC W Auto Differential pane l (Bld)on 09-15-2022 Basophils (Bld) [#/Vol] 0.05 10*3/uL <0.11 k/uL [facility] Basophils/100 WBC (Bld) 0.5 % [facility] Differential cell count method Nom (Bld) Auto [facility] Eosinophils (Bld) [#/Vol] 0.49 10*3/uL High <0.46 k/uL [facility] Eosinophils/100 WBC (Bld) 5.0 % [facility] Erythrocyte distribution width (RBC) [Ratio] 14.9 % 11.5 - 15.0 % [facility] Hematocrit (Bld) [Volume fraction] 39.3 % 36.0 - 46.0 % [facility] Hemoglobin (Bld) [Mass/Vol] 12.1 g/dL 11.5 - 15.5 g/dL [facility] Immature granulocytes (Bld) [#/Vol] 0.04 10*3/uL <0.10 k/uL [facility] Immature granulocytes/100 WBC (Bld) 0.4 % [facility] Lymphocytes (Bld) [#/Vol] 0.94 10*3/uL Low 1.00 - 4.00 k/uL [facility] Lymphocytes/100 WBC (Bld) 9.7 % [facility] MCH (RBC) [Entitic mass] 30.2 pg 26. 0 - 34.0 pg [facility] MCHC (RBC) [Mass/Vol] 30.8 g/dL 30.5 - 36.0 g/dL [facility] MCV (RBC) [Entitic vol] 98.0 fL 80.0 - 100.0 fL [facility] Monocytes (Bld) [#/Vol] 0.73 10*3/uL <0.87 k/uL [facility] Monocytes/100 WBC (Bld) 7.5 % [facility] Neutrophils (Bld) [#/Vol] 7.47 10*3/uL 1.45 - 7.50 k/uL [facility] Neutrophils/100 WBC (Bld) 76.9 % [facility] Nucleated RBC (Bld) [#/Vol] <0.01 k/uL [facility] Nucleated RBC/100 WBC (Bld) [Ratio] 0.0 /100 WBC [facility] Platelet mean volume (Bld) [Entitic vol] 9.3 fL 9.0 - 12.7 fL [facility] Platelets (Bld) [#/Vol] 349 10*3/uL 150 - 400 k/uL [facility] RBC (Bld) [#/Vol] 4.01 10*6/uL 3.90 - 5.2 0 m/uL [facility] WBC (Bld) [#/Vol] 9.72 10*3/uL 3.70 - 11. 00 k/uL [facility] Comprehensive metabolic 2000 panelon 09-15-2022 Albumin [Mass/Vol] 4.0 g/dL 3.9 - 4.9 g/dL [facility] ALP [Catalytic activity/Vol] 148 U/L High 34 - 123 U/L [facility] ALT [Catalytic activity/Vol] 12 U/L 7 - 38 U/L [facility] Anion gap [Moles/Vol] 11 mmol/L 9 - 18 mmol/L [facility] AST [Catalytic activity/Vol] 17 U/L 13 - 35 U/L [facility] Bilirubin [Mass/Vol] 0.4 mg/dL 0.2 - 1 .3 mg/dL [facility] Calcium [Mass/Vol] 9.8 mg/dL 8.5 - 10. 2 mg/dL [facility] Chloride [Moles/Vol] 103 mmol/L 97 - 10 5 mmol/L [facility] CO2 [Moles/Vol] 28 mmol/L 22 - 30 mmol/L [facility] Creatinine [Mass/Vol] 0.64 mg/dL 0.58 - 0.96 mg/dL [facility] Estimated Glomerular Filtration Rate 98 mL/min/1.73m >=60 mL/min/1.73m [facility] Glucose [Mass/Vol] 84 mg/dL 74 - 99 mg/dL [facility] Potassium [Moles/Vol] 4.4 mmol/L 3.7 - 5.1 mmol/L [facility] Protein [Mass/Vol] 7.3 g/dL 6.3 - 8.0 g/dL [facility] Sodium [Moles/Vol] 142 mmol/L 136 - 144 mmol/L [facility] Urea nitrogen [Mass/Vol] 15 mg/dL 7 - 21 mg/d L [facility] Lipid 1996 panelon Cholesterol [Mass/Vol] 169 mg/dL <200 mg/dL [facility] Cholesterol in HDL [Mass/Vol] 54 mg/dL >39 mg/dL [facility] Cholesterol in LDL [Mass/Vol] 85 mg/dL <100 mg/dL [facility] Cholesterol in LDL/Cholesterol in HDL [Mass ratio] 1.57 {ratio} <2.54 [facility] Cholesterol in VLDL [Mass/Vol] 30 mg/dL High <30 mg/dL [facility] Cholesterol non HDL [Mass/Vol] 115 mg/dL <130 mg/dL [facility] Cholesterol.total/Choles terol in HDL [Mass ratio] 3.13 {ratio} <5.10 [facility] Fasting Time 10 hrs [facility] Triglyceride [Mass/Vol] 150 mg/dL High <150 mg/dL [facility] Basic metabolic 1998 panelon 05-24-2022 Anion gap [Moles/Vol] 3 mmol/L 3 - 13 mmol/L [facility] Calcium [Mass/Vol] 8.4 mg/dL 8.4 - 10. 4 mg/dL [facility] Chloride [Moles/Vol] 106 mmol/L 98 - 10 7 mmol/L [facility] CO2 [Moles/Vol] 30 mmol/L 22 - 30 mmol/L [facility] Creatinine [Mass/Vol] 0.64 mg/dL 0.52 - 1.04 mg/dL [facility] GFR/1.73 sq M.predicted MDRD (S/P/Bld) [Vol rate/Area] - PINF [facility] Comment on above: Calculation based on the Chronic Kidney Disease Epidemiology Collaboration (CKD-EPI) equation refit without adjustment for race Glucose [Mass/Vol] 157 mg/dL High 70 - 100 mg/dL [facility] Interpretation and review of laboratory results Abnormal [facility] Potassium [Moles/Vol] 3.6 mmol/L 3.5 - 5.1 mmol/L [facility] Sodium [Moles/Vol] 139 mmol/L 135 - 145 mmol/L [facility] Urea nitrogen [Mass/Vol] 12 mg/dL 7 - 17 mg/d L [facility] CBC W Auto Differential pane l (Bld)on 05-24-2022 Basophils (Bld) [#/Vol] 0.0 10*3/uL 0.0 - 0.2 10*3/uL [facility] Basophils/100 WBC (Bld) 0.5 % 0.0 - 2.0 % [facility] Eosinophils (Bld) [#/Vol] 0.3 10*3/uL 0.0 - 0.5 10*3/uL [facility] Eosinophils/100 WBC (Bld) 3.0 % 1.0 - 6.0 % [facility] Erythrocyte distribution width (RBC) [Ratio] 13.5 % 11.5 - 14.5 % [facility] Hematocrit (Bld) [Volume fraction] 30.6 % Low 35.0 - 47.0 % [facility] Hemoglobin (Bld) [Mass/Vol] 10.0 g/dL Low 11.7 - 16.0 g/dL [facility] Interpretation and review of laboratory results Abnormal [facility] Lymphocytes (Bld) [#/Vol] 0.8 10*3/uL Low 1.0 - 4.3 10*3/uL [facility] Lymphocytes/100 WBC (Bld) 8.6 % Low 20.0 - 40.0 % [facility] MCH (RBC) [Entitic mass] 31.0 pg 26. 0 - 34.0 pg [facility] MCHC (RBC) [Mass/Vol] 32.6 % 32.0 - 36.0 % [facility] MCV (RBC) [Entitic vol] 95.1 fL 80.0 - 98.0 fL [facility] Monocytes (Bld) [#/Vol] 0.5 10*3/uL 0.0 - 0.8 10*3/uL [facility] Monocytes/100 WBC (Bld) 5.7 % 2.0 - 10.0 % [facility] Neutrophils (Bld) [#/Vol] 7.6 10*3/uL High 1.8 - 7.0 10*3/uL [facility] Neutrophils/100 WBC (Bld) 82.2 % High 40.0 - 80.0 % [facility] Nucleated RBC/100 WBC (Bld) [Ratio] 0.0 % [facility] Platelet mean volume (Bld) [Entitic vol] 7.1 fL Low 7.4 - 12.4 fL [facility] Platelets (Bld) [#/Vol] 261 10*3/uL 140 - 440 10*3/uL [facility] RBC (Bld) [#/Vol] 3.22 10*6/uL Low 3.8 - 5.20 10*6/uL [facility] WBC (Bld) [#/Vol] 9.3 10*3/uL 3.6 - 10.7 10*3/uL [facility] Basic metabolic 1998 panelon 05-23-2022 Anion gap [Moles/Vol] 2 mmol/L Low 3 - 13 mmol/L [facility] Calcium [Mass/Vol] 8.5 mg/dL 8.4 - 10. 4 mg/dL [facility] Chloride [Moles/Vol] 109 mmol/L High 98 - 10 7 mmol/L [facility] CO2 [Moles/Vol] 28 mmol/L 22 - 30 mmol/L [facility] Creatinine [Mass/Vol] 0.68 mg/dL 0.52 - 1.04 mg/dL [facility] GFR/1.73 sq M.predicted MDRD (S/P/Bld) [Vol rate/Area] - PINF [facility] Comment on above: Calculation based on the Chronic Kidney Disease Epidemiology Collaboration (CKD-EPI) equation refit without adjustment for race Glucose [Mass/Vol] 104 mg/dL High 70 - 100 mg/dL [facility] Interpretation and review of laboratory results Abnormal [facility] Potassium [Moles/Vol] 3.6 mmol/L 3.5 - 5.1 mmol/L [facility] Sodium [Moles/Vol] 138 mmol/L 135 - 145 mmol/L [facility] Urea nitrogen [Mass/Vol] 13 mg/dL 7 - 17 mg/d L [facility] CBC W Auto Differential pane l (Bld)Ordered By: Crystal Dupont on 05-23-2022 Basophils (Bld) [#/Vol] 0.1 10*3/uL 0.0 - 0.2 10*3/uL [facility] Basophils/100 WBC (Bld) 0.5 % 0.0 - 2.0 % [facility] Eosinophils (Bld) [#/Vol] 0.2 10*3/uL 0.0 - 0.5 10*3/uL [facility] Eosinophils/100 WBC (Bld) 2.5 % 1.0 - 6.0 % [facility] Erythrocyte distribution width (RBC) [Ratio] 13.9 % 11.5 - 14.5 % [facility] Hematocrit (Bld) [Volume fraction] 31.1 % Low 35.0 - 47.0 % [facility] Hemoglobin (Bld) [Mass/Vol] 10.3 g/dL Low 11.7 - 16.0 g/dL [facility] Interpretation and review of laboratory results Abnormal [facility] Lymphocytes (Bld) [#/Vol] 0.7 10*3/uL Low 1.0 - 4.3 10*3/uL [facility] [employer] Lymphocytes/100 WBC (Bld) 6.8 % Low 20.0 - 40.0 % [facility] MCH (RBC) [Entitic mass] 31.5 pg 26. 0 - 34.0 pg [facility] MCHC (RBC) [Mass/Vol] 33.1 % 32.0 - 36.0 % [facility] MCV (RBC) [Entitic vol] 95.1 fL 80.0 - 98.0 fL [facility] Monocytes (Bld) [#/Vol] 0.7 10*3/uL 0.0 - 0.8 10*3/uL [facility] Monocytes/100 WBC (Bld) 7.5 % 2.0 - 10.0 % [facility] Neutrophils (Bld) [#/Vol] 7.9 10*3/uL High 1.8 - 7.0 10*3/uL [facility] Neutrophils/100 WBC (Bld) 82.7 % High 40.0 - 80.0 % [facility] Nucleated RBC/100 WBC (Bld) [Ratio] 0.1 % [facility] [employer] Platelet mean volume (Bld) [Entitic vol] 6.7 fL Low 7.4 - 12.4 fL [facility] Platelets (Bld) [#/Vol] 248 10*3/uL 140 - 440 10*3/uL [facility] RBC (Bld) [#/Vol] 3.27 10*6/uL Low 3.8 - 5.20 10*6/uL [facility] WBC (Bld) [#/Vol] 9.6 10*3/uL 3.6 - 10.7 10*3/uL [facility] Laboratory - Chemistry and C hemistry - challengeon 05-23-2022 Magnesium [Mass/Vol] 1.9 mg/dL 1.6 - 2 .3 mg/dL [facility] Magnesium [Mass/Vol]on 05-23 Interpretation and review of laboratory results Normal [facility] No Panel Informationon 05-23 [facility] Basic metabolic 1998 panelon 05-22-2022 Anion gap [Moles/Vol] 2 mmol/L Low 3 - 13 mmol/L [facility] Calcium [Mass/Vol] 8.4 mg/dL 8.4 - 10. 4 mg/dL [facility] Chloride [Moles/Vol] 105 mmol/L 98 - 10 7 mmol/L [facility] CO2 [Moles/Vol] 30 mmol/L 22 - 30 mmol/L [facility] Creatinine [Mass/Vol] 0.69 mg/dL 0.52 - 1.04 mg/dL [facility] GFR/1.73 sq M.predicted MDRD (S/P/Bld) [Vol rate/Area] - PINF [facility] Comment on above: Calculation based on the Chronic Kidney Disease Epidemiology Collaboration (CKD-EPI) equation refit without adjustment for race Glucose [Mass/Vol] 86 mg/dL 70 - 100 mg/dL [facility] Interpretation and review of laboratory results Abnormal [facility] Potassium [Moles/Vol] 4.2 mmol/L 3.5 - 5.1 mmol/L [facility] Sodium [Moles/Vol] 137 mmol/L 135 - 145 mmol/L [facility] Urea nitrogen [Mass/Vol] 13 mg/dL 7 - 17 mg/d L [facility] CBC W Auto Differential pane l (Bld)Ordered By: Hakeem Cruz on 05-22-2022 Basophils (Bld) [#/Vol] 0.0 10*3/uL 0.0 - 0.2 10*3/uL [facility] Basophils/100 WBC (Bld) 0.5 % 0.0 - 2.0 % [facility] Eosinophils (Bld) [#/Vol] 0.3 10*3/uL 0.0 - 0.5 10*3/uL [facility] Eosinophils/100 WBC (Bld) 4.1 % 1.0 - 6.0 % [facility] Erythrocyte distribution width (RBC) [Ratio] 14.0 % 11.5 - 14.5 % [facility] Hematocrit (Bld) [Volume fraction] 33.0 % Low 35.0 - 47.0 % [facility] Hemoglobin (Bld) [Mass/Vol] 10.8 g/dL Low 11.7 - 16.0 g/dL [facility] Interpretation and review of laboratory results Abnormal [facility] Lymphocytes (Bld) [#/Vol] 1.0 10*3/uL 1.0 - 4.3 10*3/uL [facility] Lymphocytes/100 WBC (Bld) 12.8 % Low 20.0 - 40.0 % [facility] MCH (RBC) [Entitic mass] 31.2 pg 26. 0 - 34.0 pg [facility] MCHC (RBC) [Mass/Vol] 32.8 % 32.0 - 36.0 % [facility] MCV (RBC) [Entitic vol] 95.1 fL 80.0 - 98.0 fL [facility] Monocytes (Bld) [#/Vol] 0.6 10*3/uL 0.0 - 0.8 10*3/uL [facility] Monocytes/100 WBC (Bld) 8.6 % 2.0 - 10.0 % [facility] Neutrophils (Bld) [#/Vol] 5.6 10*3/uL 1.8 - 7.0 10*3/uL [facility] Neutrophils/100 WBC (Bld) 74.0 % 40.0 - 80.0 % [facility] Nucleated RBC/100 WBC (Bld) [Ratio] 0.0 % [facility] Platelet mean volume (Bld) [Entitic vol] 7.0 fL Low 7.4 - 12.4 fL [facility] Platelets (Bld) [#/Vol] 238 10*3/uL 140 - 440 10*3/uL [facility] RBC (Bld) [#/Vol] 3.47 10*6/uL Low 3.8 - 5.20 10*6/uL [facility] WBC (Bld) [#/Vol] 7.5 10*3/uL 3.6 - 10.7 10*3/uL [facility] Laboratory - Chemistry and C hemistry - challengeon 05-22-2022 Magnesium [Mass/Vol] 2.2 mg/dL 1.6 - 2 .3 mg/dL [facility] Magnesium [Mass/Vol]on 05-22 Interpretation and review of laboratory results Normal [facility] No Panel Informationon 05-22 [facility] Basic metabolic 1998 panelon 05-21-2022 Anion gap [Moles/Vol] 1 mmol/L Low 3 - 13 mmol/L [facility] Calcium [Mass/Vol] 9.1 mg/dL 8.4 - 10. 4 mg/dL [facility] Chloride [Moles/Vol] 103 mmol/L 98 - 10 7 mmol/L [facility] [employer] CO2 [Moles/Vol] 35 mmol/L High 22 - 30 mmol/L [facility] Creatinine [Mass/Vol] 0.78 mg/dL 0.52 - 1.04 mg/dL [facility] GFR/1.73 sq M.predicted MDRD (S/P/Bld) [Vol rate/Area] 84.4 mL/min/{1.73_m2} - PINF [facility] Comment on above: Calculation based on the Chronic Kidney Disease Epidemiology Collaboration (CKD-EPI) equation refit without adjustment for race Glucose [Mass/Vol] 116 mg/dL High 70 - 100 mg/dL [facility] Potassium [Moles/Vol] 4.2 mmol/L 3.5 - 5.1 mmol/L [facility] Sodium [Moles/Vol] 138 mmol/L 135 - 145 mmol/L [facility] Urea nitrogen [Mass/Vol] 15 mg/dL 7 - 17 mg/d L [facility] CBC W Auto Differential pane l (Bld)Ordered By: Yair Sanchez on 05-21-2022 Basophils (Bld) [#/Vol] 0.0 10*3/uL 0.0 - 0.2 10*3/uL [facility] [employer] Basophils/100 WBC (Bld) 0.2 % 0.0 - 2.0 % [facility] Eosinophils (Bld) [#/Vol] 0.2 10*3/uL 0.0 - 0.5 10*3/uL [facility] Eosinophils/100 WBC (Bld) 1.8 % 1.0 - 6.0 % [facility] Erythrocyte distribution width (RBC) [Ratio] 14.0 % 11.5 - 14.5 % [facility] Hematocrit (Bld) [Volume fraction] 39.0 % 35.0 - 47.0 % [facility] Hemoglobin (Bld) [Mass/Vol] 12.5 g/dL 11.7 - 16.0 g/dL [facility] Interpretation and review of laboratory results Abnormal [facility] Lymphocytes (Bld) [#/Vol] 0.7 10*3/uL Low 1.0 - 4.3 10*3/uL [facility] Lymphocytes/100 WBC (Bld) 5.6 % Low 20.0 - 40.0 % [facility] [employer] MCH (RBC) [Entitic mass] 30.7 pg 26. 0 - 34.0 pg [facility] MCHC (RBC) [Mass/Vol] 32.1 % 32.0 - 36.0 % [facility] MCV (RBC) [Entitic vol] 95.4 fL 80.0 - 98.0 fL [facility] Monocytes (Bld) [#/Vol] 0.6 10*3/uL 0.0 - 0.8 10*3/uL [facility] Monocytes/100 WBC (Bld) 5.3 % 2.0 - 10.0 % [facility] Neutrophils (Bld) [#/Vol] 10.6 10*3/uL High 1.8 - 7.0 10*3/uL [facility] Neutrophils/100 WBC (Bld) 87.1 % High 40.0 - 80.0 % [facility] Nucleated RBC/100 WBC (Bld) [Ratio] 0.0 % [facility] Platelet mean volume (Bld) [Entitic vol] 7.5 fL 7.4 - 12.4 fL [facility] Platelets (Bld) [#/Vol] 339 10*3/uL 140 - 440 10*3/uL [facility] RBC (Bld) [#/Vol] 4.09 10*6/uL 3.8 - 5.20 10*6/uL [facility] WBC (Bld) [#/Vol] 12.1 10*3/uL High 3.6 - 10.7 10*3/uL [facility] CT Cervical spine WO contras ton 05-21-2022 1. No fracture or subluxation of the cervical vertebrae. 2. 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 3. Diffuse osteopenia. 4. Emphysema. Report Dictated on Electronically Signed By: Jaspreet Jeong Electronically Signed Date/Time: 05/21/2022 4:41 AM [facility] Patient Name: GONZALO DELUCA : 1955 [...] limited with CT imaging. Moderate apical emphysema [facility] Jaspreet Jeong DO - [...] Jeong Electronically Signed Date/Time: 05/21/2022 4:41 AM [facility] Radiology Study observation (narrative) [facility] al[facility] CT Head WO contraston 2022 No acute intracranial process. Minimal right periorbital soft tissue swelling. Report Dictated on Electronically Signed By: Jaspreet Jeong Electronically Signed Date/Time: 05/21/2022 4:38 AM [facility] Patient Name: GONZALO DELUCA : 1955 [...] Right preorbital air density is normal finding. [facility] Jaspreet Jeong, - 05/21/2022 Patient Name: [...] Electronically Signed Date/Time: 05/21/2022 4:38 AM EST [facility] Radiology Study observation (narrative) [facility] Laboratory - Chemistry and C hemistry - challengeon 05-21-2022 Magnesium [Mass/Vol] 2.6 mg/dL High 1.6 - 2 .3 mg/dL [facility] No Panel Informationon 05-21 Interpretation and review of laboratory results Abnormal [facility] Martha Flores MD 05/21/2022 5:56 AM Laceration [...] Procedure completion: Tolerated well, no immediate complications [facility] Martha Flores MD 05/21/2022 5:56 AM [facility] Performed by: Martha Flores MD Authorized by: Martha Flores MD Consent: Consent obtained: Verbal Consent given by: Patient Risks discussed: Infection, need for additional repair, poor cosmetic result and poor wound healing Picacho protocol: Patient identity confirmed: Verbally with patient [...] Procedure completion: Tolerated well, no immediate complications [facility] Martha Flores MD 05/21/2022 5:56 AM Lac[employer] Repair Performed by: Martha Flores MD Authorized by: Martha Flores MD Consent: Consent obtained: Verbal Consent given by: Patient Risks discussed: Infection, pain, poor cosmetic result, poor wound healing and need for additional repair Pic[facility] protocol: Patient identity confirmed: Verbally with patient [...] Procedure completion: Tolerated well, no immediate complications [facility] XR Chest Single viewon 05-21 1. Lines/ [...] Electronically Signed Date/Time: 05/21/2022 3:52 AM EST [facility] Patient Name: GONZALO DELUCA : 1955 Exam Date/Time: 05/21/2022 04:12 Procedure: XR CHEST 1 VIEW Ordering Provider: FLORES PRISCA Reason For Exam: fall PORTABLE CHEST CLINICAL INDICATION: Fall. COMPARISON: 03/16/2020. Correlation is made with CT chest dated 10/14/2021. TECHNIQUE: A single frontal view of thorax was obtained and reviewed. [facility] Jaspreet Jeong DO - 05/21/2022 Patient [...] Jeong Electronically Signed Date/Time: 05/21/2022 3:52 AM [facility] Radiology Study observation (narrative) [facility] XR Elbow - right 3 Viewson 0 05-21-2022 Elbow joint effusion . Occult elbow osseous fracture is likely, but not visualized. Osteopenia. Follow-up right elbow radiograph in 7-10 days is recommended. Report Dictated on Electronically Signed By: Jaspreet Jeong Electronically Signed Date/Time: 05/21/2022 4:16 AM [employer] [facility] Patient Name: GONZALO DELUCA : 1955 [...] are demineralized. No bone lesion is identified. [facility] Jaspreet Jeong DO - [...] Electronically Signed Date/Time: 05/21/2022 4:16 AM EST [facility] [employer] Radiology Study observation (narrative) Abe paz XR Elbow - right 3 ViewsOrde red By: Jaspreet Jeong on 05-21-2022 [employer] Work Phone: XR Pelvis 1 or 2 Viewson No acute traumatic osseous abnormality. Osteopenia. Report Dictated on Electronically Signed By: Jaspreet Jeong Electronically Signed Date/Time: 05/21/2022 4:17 AM EST [employer] [facility] Patient Name: GONZALO DELUCA : 1955 [...] lesion or soft tissue abnormality is identified. [facility] Jaspreet Jeong DO - 05/21/2022 [...] osseous abnormality. Osteopenia. Report Dictated on Workstation: [employer] Electronically Signed By: Jaspreet Jeong Electronically Signed Date/Time: 05/21/2022 4:17 AM [facility] Radiology Study observation (narrative) [facility] XR Shoulder - right 2 Viewso n 05-21-2022 1. Acute, transverse fracture through the right proximal surgical humeral neck. There is mild avulsion fracture of the right greater tuberosity. Diffuse osteopenia. Remote multiple mid thoracic compression fracture deformities, unchanged. Emphysema. Report Dictated on Electronically Signed By: Jaspreet Jeong Electronically Signed Date/Time: 05/21/2022 3:56 AM [employer] [facility] Patient Name: GONZALO DELUCA : 1955 [...] hyperinflated with flattened diaphragms, consistent with COPD. [facility] Jaspreet Jeong, DO - 05/21/2022 Patient Name: GONZALO DELUCA : 1955 [facility]#: [id number] Exam Date/Time: 05/21/2022 04:11 Procedure: XR SHOULDER [...] Electronically Signed Date/Time: 05/21/2022 3:56 AM EST [facility] Radiology Study observation (narrative) [facility] Basic Metabolic Panelon 07-2 Anion gap [Moles/Vol] 4 mmol/L Normal 3-13 [facility] Comment on above: Performed By: #### B MP3 #### [facility] [address] [place] [address] Calcium [Mass/Vol] 8.8 mg/dL Normal 8.4-10.[address] [facility] Comment on above: Performed By: #### B MP3 #### [facility] [address] [place] [address] CO2 [Moles/Vol] 31 mmol/L High 22-30 [facility] Comment on above: Performed By: #### B MP3 #### [facility] [address] [place] [address] Glucose [Mass/Vol] 91 mg/dL Normal 70-[address] [facility] Comment on above: Performed By: #### B MP3 #### [facility] [address] [place] [address] Urea nitrogen [Mass/Vol] 15 mg/dL Normal 9-[address] [facility] Comment on above: Performed By: #### B MP3 #### [facility] [address] [place] [address] Creatinine [Mass/Vol] 0.80 mg/dL Normal 0.52-1.25 [facility] Comment on above: Performed By: #### B MP3 #### [facility] [address] [place] [address] GFR/1.73 sq M.predicted among blacks MDRD (S/P/Bld) [Vol rate/Area] 89.7 mL/min/{1.73_m2} Normal >60 [facility] Comment on above: Performed By: #### B MP3 #### [facility] [address] [place] [address] GFR/1.73 sq M.predicted among non-blacks MDRD (S/P/Bld) [Vol rate/Area] 77.4 mL/min/{1.73_m2} Normal >60 [facility] Comment on above: Result Comment: KDIG [...] secretion. Performed By: #### B MP3 #### [facility] [address] [place] [address] Potassium [Moles/Vol] 4.1 mmol/L Normal 3.5-5.1 [facility] Comment on above: Performed By: #### B MP3 #### [facility] [address] [place] [address] Chloride [Moles/Vol] 106 mmol/L Normal 98-107 [facility] Comment on above: Performed By: #### B MP3 #### [facility] [address] [place] [address] Sodium [Moles/Vol] 141 mmol/L Normal 135-[address] [facility] Comment on above: Performed By: #### B MP3 #### [facility] [address] [place] [address] Anion gap [Moles/Vol] 4 mmol/L 3 - 13 mmol/L [facility] Calcium [Mass/Vol] 8.8 mg/dL 8.4 - 10. 4 mg/dL [facility] Chloride [Moles/Vol] 106 mmol/L 98 - 10 7 mmol/L [facility] CO2 [Moles/Vol] 31 mmol/L High 22 - 30 mmol/L [facility] Creatinine [Mass/Vol] 0.8 mg/dL 0.52 - 1.25 mg/dL [facility] EGFR IF NonAfrican [place] 77.4 mL/min 60 - PINF mL/min [facility] Comment on above: KDIGO guidelines pro vide [...] [Mass/Vol] 91 mg/dL 70 - 100 mg/dL [facility] Interpretation and review of laboratory results Abnormal [facility] Potassium [Moles/Vol] 4.1 mmol/L 3.5 - 5.1 mmol/L [facility] Sodium [Moles/Vol] 141 mmol/L 135 - 145 mmol/L [facility] Urea nitrogen (BldV) [Mass/Vol] 15 mg/dL 9 - 20 mg/dL [facility] Test Performed by [facility], [address] [place], [place] [address] [place] [address] [address] [facility] [address] Chest w/ Contraston 10-14 CT Chest w/ Contrast Patient Name: GONZALO EDEN Computed Tomography ACCESSION EXAM DATE/TIME PROCEDURE ORDERING PROVIDER [id number] 10/14/2021 14:[address] Thorax w/ Contrast ZIYAD MENENDEZ CPT code 07634 Q9967 Reason For Exam (CT Thorax w/ [...] Transcribed Date and Time: 10/16/2021 12:[address] [facility] TOX SCREEN ROUT URon 022 Amphetamines Confirm (U) [Mass/Vol] Negative Negative [facility] Barbiturates Urine Negative Negative [facility] Benzodiazepines Urine Negative Negative [facility] Cannabinoids, Urine Negative Negative [facility] Cocaine Ql (U) Negative Negative [facility] Ethanol (U) [Mass/Vol] <11 <11 mg/dL [facility] Opiates Screen Ql (U) Negative Negative [facility] oxyCODONE cutoff Screen (U) [Mass/Vol] Positive Abnormal Negative [facility] Phencyclidine Ql (U) Negative Negative [facility] CT Chest w/ Contraston 12-26 CT Chest w/ Contrast Patient Name: GONZALO EDEN Computed Tomography ACCESSION EXAM DATE/TIME PROCEDURE ORDERING PROVIDER [id number] 12/26/2020 11:[address] Thorax w/ Contrast ZIYAD MENENDEZ CPT code 43303 Q9967 Reason For Exam (CT Thorax w/ [...] Transcribed Date and Time: 12/29/2020 2:[address] [facility] Creatinineon 12-26-2020 Creatinine [Mass/Vol] 0.73 mg/dL Normal 0.52-1.25 [facility] Comment on above: Performed By: #### C RTN3 #### [facility] [address] [place] [address] GFR/1.73 sq M.predicted among blacks MDRD (S/P/Bld) [Vol rate/Area] mL/min/{1.73_m2} Normal >[address] [facility] Comment on above: Performed By: #### C RTN3 #### [facility] [address] [place] [address] GFR/1.73 sq M.predicted among non-blacks MDRD (S/P/Bld) [Vol rate/Area] 87.0 mL/min/{1.73_m2} Normal >60 [facility] Comment on above: Result Comment: KDIG [...] secretion. Performed By: #### C RTN3 #### [facility] [address] [place] [address] Creatinine, SerumOrdered By: Ziyad Menendez on 12-26-2020 Creatinine [Mass/Vol] 0.73 mg/dL 0.52 - 1.25 mg/dL [facility] Work Phone: EGFR IF NonAfrican [place] 87.0 mL/min >60 [facility] Work Phone: Comment on above: KDIGO guidelines [...] MDRD (S/P/Bld) [Vol rate/Area] mL/min/{1.73_m2} >60 mL/min [employer] Work Phone: Test Performed by [employer], [address] [place] [address] [employer] Work Phone: [employer] Work Phone: XR ELBOW RIGHT (MIN 3 VIEWS) Ordered By: Lauren Lutz on 10-16-2020 Patient Name: GONZALO DELUCA Diagnostic Radiology ACCESSION EXAM DATE/TIME PROCEDURE ORDERING PROVIDER [id number] 10/16/2020 15:30 EDT CR Elbow 3+ Views Right NADEEM LUTZ DANIEL M CPT code 84786 Reason For Exam (CR Elbow 3+ Views [...] ANTHONY Transcribed Date and Time: 10/16/2020 3:57 [facility] Work Phone: Real, [employer] Incoming Radiology Results From [facility] - 10/16/2020 3:57 PM EDT Patient Name: GONZALO DELUCA Diagnostic Radiology ACCESSION EXAM DATE/TIME PROCEDURE ORDERING PROVIDER [id number] 10/16/2020 15:30 EDT CR Elbow 3+ Views Right NADEEM LUTZ DANIEL M CPT code 29083 Reason For Exam (CR Elbow 3+ Views [...] Radiology ACCESSION EXAM DATE/TIME PROCEDURE ORDERING PROVIDER [id number] 10/16/2020 15:30 EDT CR Spine Lumbosacral 2 NADEEM LUTZ DANIEL M or 3 Views CPT code 70733 Reason For Exam (CR Spine Lumbosacral 2 [...] Time: 10/16/2020 5:12 [facility] Work Phone: Real, [facility] Incoming Radiology Results From [facility] - 10/16/2020 5:12 PM EDT Patient Name: GONZALO DELUCA Diagnostic Radiology ACCESSION EXAM DATE/TIME PROCEDURE ORDERING PROVIDER [id number] 10/16/2020 15:30 EDT CR Spine Lumbosacral 2 NADEEM LUTZ DANIEL M or 3 Views CPT code 60035 Reason For Exam (CR Spine Lumbosacral 2 [...] Radiology ACCESSION EXAM DATE/TIME PROCEDURE ORDERING PROVIDER [id number] 10/16/2020 15:30 EDT CR Sacrum/Coccyx 2+ NADEEM LUTZ DANIEL M Views CPT code 40218 Reason For Exam (CR Sacrum/Coccyx 2+ Views) [...] Phone: [facility], [facility] Incoming Radiology Results From [facility] - 10/16/2020 5:14 PM EDT Patient Name: GONZALO DELUCA Diagnostic Radiology ACCESSION EXAM DATE/TIME PROCEDURE ORDERING PROVIDER [id number] 10/16/2020 15:30 EDT CR Sacrum/Coccyx 2+ NADEEM LUTZ, LAUREN King Views CPT code 31385 Reason For Exam (CR Sacrum/Coccyx 2+ Views) [...] Tomography ACCESSION EXAM DATE/TIME PROCEDURE ORDERING PROVIDER [id number] 09/24/2020 12:[address] Thorax w/ Contrast ZIYAD MENENDEZ CPT code 14469 Q9967 Reason For Exam (CT Thorax w/ [...] No other acute findings. Report Dictated on Workstation: [id number] --- Final --- Dictating Physician: MD AVILA WENDELL Signed Date and Time: 09/24/2020 6:27 pm Signed by: MD AVILA WENDELL Transcribed Date and Time: 09/24/2020 6:28 [facility] Work Phone: [facility], [facility] Incoming Radiology Results From [employer] - 09/24/2020 6:29 PM EDT Patient Name: GONZALO DELUCA Computed Tomography ACCESSION EXAM DATE/TIME PROCEDURE ORDERING PROVIDER [id number] 09/24/2020 12:[address] Thorax w/ Contrast ZIYAD MENENDEZ CPT code 87509 Q9967 Reason For Exam (CT Thorax w/ [...] and Time: 09/24/2020 6:28 [facility] Work Phone: [employer] Work Phone: [facility] 09-12-2020 [facility] HNO ID: [id number] Author: RT Alfred(R) Service: Radiology Author Type: Filament Welder Type: [facility] Filed: 09/12/2020 12:49 PM [...] Alfred(R) September 12, 2020 12:49 PM Normal [facility] Basic metabolic 2000 panelon 09-12-2020 Anion gap [Moles/Vol] 5 mmol/L Low 8-16 [facility] Comment on above: Order Comment: Speci men Type: BLOOD SPECIMEN Performed By: #### 2 4321-2 #### [facility] CLIA [id number] [address] [place] [address] [place] Calcium [Mass/Vol] 8.8 mg/dL Normal 8.5-10.1 [facility] Comment on above: Order Comment: Speci men Type: BLOOD SPECIMEN Performed By: #### 2 4321-2 #### [facility] CLIA [id number] [facility] [place] Chloride [Moles/Vol] 102 mmol/L Normal 98-107 [facility] Comment on above: Order Comment: Speci men Type: BLOOD SPECIMEN Performed By: #### 2 4321-2 #### [facility] CLIA [id number] [address] [place] [address] [place] CO2 [Moles/Vol] 33 mmol/L High 21-32 [facility] Comment on above: Order Comment: Speci men Type: BLOOD SPECIMEN Performed By: #### 2 4321-2 #### [facility] CLIA [id number] [address] [place] [address] [place] Creatinine [Mass/Vol] 0.86 mg/dL Normal 0.51-0.95 [facility] Comment on above: Order Comment: Speci men Type: BLOOD SPECIMEN Performed By: #### 2 4321-2 #### [facility] CLIA [id number] [address] [place] [address] [place] GFR/1.73 sq M.predicted among blacks MDRD (S/P/Bld) [Vol rate/Area] mL/min/{1.73_m2} [facility] Comment on above: Order Comment: Speci men Type: BLOOD SPECIMEN Performed By: #### 2 4321-2 #### [facility] CLIA [id number] [address] [place] [address] [place] GFR/1.73 sq M.predicted among non-blacks MDRD (S/P/Bld) [Vol rate/Area] mL/min/{1.73_m2} [facility] Comment on above: Order Comment: [...] GFR. Performed By: #### 2 4321-2 #### [facility] [employer] [facility] CLIA [id number] [address] [place] [address] [place] Glucose [Mass/Vol] 98 mg/dL Normal 70-99 [facility] Comment on above: Order Comment: Speci men Type: BLOOD SPECIMEN Result Comment: The [place] Diabetes Association (ADA) provides guidance for cutoff [...] Standards of Medical Care in Diabetes 2016, [place] Diabetes Association. Diabetes Care. 2016.39(Suppl 1). Performed By: #### 2 4321-2 #### [facility] CLIA [id number] [address] [place] [address] [place] Potassium [Moles/Vol] 3.7 mmol/L Normal 3.5-5.1 [facility] Comment on above: Order Comment: Speci men Type: BLOOD SPECIMEN Performed By: #### 2 4321-2 #### [facility] CLIA [id number] [address] [place] [address] [place] Sodium [Moles/Vol] 140 mmol/L Normal 136-145 [facility] Comment on above: Order Comment: Speci men Type: BLOOD SPECIMEN Performed By: #### 2 4321-2 #### [facility] CLIA [id number] [address] [place] [address] Urea nitrogen [Mass/Vol] 17 mg/dL Normal 7-18 [facility] Comment on above: Order Comment: Speci men Type: BLOOD SPECIMEN Performed By: #### 2 4321-2 #### [facility] CLIA [id number] [address] [place] [address] CBC W Auto Differential pane l (Bld)on 09-12-2020 Basophils (Bld) [#/Vol] 0.03 10*3/uL Normal <0.11 [facility] Comment on above: Order Comment: Speci men Type: BLOOD SPECIMEN Performed By: #### 5 7021-8 #### [facility] CLIA [id number] [address] [place] [address] Basophils/100 WBC (Bld) 0.5 % Normal [facility] Comment on above: Order Comment: Speci men Type: BLOOD SPECIMEN Performed By: #### 5 7021-8 #### [facility] CLIA [id number] [address] [place] [address] Differential cell count method Nom (Bld) Auto Normal [facility] Comment on above: Order Comment: Speci men Type: BLOOD SPECIMEN Performed By: #### 5 7021-8 #### [facility] CLIA [id number] [address] [place] [address] [place] Eosinophils (Bld) [#/Vol] 0.49 10*3/uL High <0.46 [facility] Comment on above: Order Comment: Speci men Type: BLOOD SPECIMEN Performed By: #### 5 7021-8 #### [facility] CLIA [id number] [address] [place] [address] Eosinophils/100 WBC (Bld) 8.2 % Normal [facility] Comment on above: Order Comment: Speci men Type: BLOOD SPECIMEN Performed By: #### 5 7021-8 #### [facility] CLIA [id number] [address] [place] [address] Erythrocyte distribution width (RBC) [Ratio] 12.7 % Normal 11.5-15.0 [facility] Comment on above: Order Comment: Speci men Type: BLOOD SPECIMEN Performed By: #### 5 7021-8 #### [facility] CLIA [id number] [address] [place] [address] Hematocrit (Bld) [Volume fraction] 34.2 % Low 36.0-46.0 [facility] Comment on above: Order Comment: Speci men Type: BLOOD SPECIMEN Performed By: #### 5 7021-8 #### [facility] CLIA [id number] [address] [place] [address] Hemoglobin (Bld) [Mass/Vol] 10.8 g/dL Low 11.5-15.5 [facility] Comment on above: Order Comment: Speci men Type: BLOOD SPECIMEN Performed By: #### 5 7021-8 #### [facility] CLIA [id number] [address] [place] [address] Lymphocytes (Bld) [#/Vol] 0.59 10*3/uL Low 1.00-4.00 [facility] Comment on above: Order Comment: Speci men Type: BLOOD SPECIMEN Performed By: #### 5 7021-8 #### [facility] CLIA [id number] [address] [place] [address] Lymphocytes/100 WBC (Bld) 9.9 % Normal [facility] Comment on above: Order Comment: Speci men Type: BLOOD SPECIMEN Performed By: #### 5 7021-8 #### [facility] CLIA [id number] [address] [place] [address] MCH (RBC) [Entitic mass] 30.7 pg Normal 26.0-34.0 [facility] Comment on above: Order Comment: Speci men Type: BLOOD SPECIMEN Performed By: #### 5 7021-8 #### [facility] CLIA [id number] [address] [place] [address] MCHC (RBC) [Mass/Vol] 31.6 g/dL Normal 30.5-36.0 [facility] Comment on above: Order Comment: Speci men Type: BLOOD SPECIMEN Performed By: #### 5 7021-8 #### [facility] CLIA [id number] [address] [place] [address] MCV (RBC) [Entitic vol] 97.2 fL Normal 80.0-100.0 [facility] Comment on above: Order Comment: Speci men Type: BLOOD SPECIMEN Performed By: #### 5 7021-8 #### [facility] CLIA [id number] [address] [place] [address] Monocytes (Bld) [#/Vol] 0.63 10*3/uL Normal <0.87 [facility] Comment on above: Order Comment: Speci men Type: BLOOD SPECIMEN Performed By: #### 5 7021-8 #### [facility] CLIA [id number] [address] [place] [address] Monocytes/100 WBC (Bld) 10.6 % Normal [facility] Comment on above: Order Comment: Speci men Type: BLOOD SPECIMEN Performed By: #### 5 7021-8 #### [facility] CLIA [id number] [address] [place] [address] Neutrophils (Bld) [#/Vol] 4.20 10*3/uL Normal 1.45-7.50 [facility] Comment on above: Order Comment: Speci men Type: BLOOD SPECIMEN Performed By: #### 5 7021-8 #### [facility] CLIA [id number] [address] [place] [address] Neutrophils/100 WBC (Bld) 70.8 % Normal [facility] Comment on above: Order Comment: Speci men Type: BLOOD SPECIMEN Performed By: #### 5 7021-8 #### [facility] CLIA [id number] [address] [place] [address] Platelet mean volume (Bld) [Entitic vol] 9.1 fL Normal 9.0-12.7 [facility] Comment on above: Order Comment: Speci men Type: BLOOD SPECIMEN Performed By: #### 5 7021-8 #### [facility] CLIA [id number] [address] [place] [address] [place] [facility] Platelets (Bld) [#/Vol] 215 10*3/uL Normal 150-400 [facility] Comment on above: Order Comment: Speci men Type: BLOOD SPECIMEN Performed By: #### 5 7021-8 #### [facility] CLIA [id number] [address] [place] [address] RBC (Bld) [#/Vol] 3.52 10*6/uL Low 3.90-5.20 [facility] Comment on above: Order Comment: Speci men Type: BLOOD SPECIMEN Performed By: #### 5 7021-8 #### [facility] CLIA [id number] [address] [place] [address] WBC (Bld) [#/Vol] 5.94 10*3/uL Normal 3.70-11.00 [facility] Comment on above: Order Comment: Speci men Type: BLOOD SPECIMEN Performed By: #### 5 7021-8 #### [facility] CLIA [id number] [address] [place] [address] CT BRAIN WO IVCONon 09-13-[address] BRAIN WO IVCON * * *Final Report* * * DATE OF EXAM: Sep 12 2020 1:00PM [facility] 0504 - CT BRAIN WO [...] clear. The visualized paranasal sinuses are clear. Potato Spotter (topogram) images: No additional findings. IMPRESSION: 1. No CT evidence of acute intracranial abnormalities. 2. Small area of presumed encephalomalacia within right occipital lobe posteriorly. Clinical correlation is recommended. 3. Presumed postsurgical changes of right orbits are partially imaged. Real Estate Branch Manager: [employer] Transcribe Date/Time: Sep 12 2020 1:04P Dictated by : ELIOT STERLING MD This examination was interpreted and the report reviewed and electronically signed by: ELIOT STERLING MD on Sep 12 2020 1:12PM EST [id number] Normal [facility] CT CERVICAL SPINE WO IVCONon 09-12-2020 CT CERVICAL SPINE WO IVCON * * *Final Report* * * DATE OF EXAM: Sep 12 2020 1:00PM [facility] 0505 - CT CERVICAL SPINE [...] Counting reference: Craniocervical junction. Anatomic Variants: None. Potato Spotter (topogram) images: No additional findings. Alignment: Grade [...] vertebrae with counting from the craniocervical junction. Real Estate Branch Manager: [facility] Transcribe Date/Time: Sep 12 2020 1:12P Dictated by : ELIOT STERLING MD This examination was interpreted and the report reviewed and electronically signed by: ELIOT STERLING MD on Sep 12 2020 1:28PM EST [id number] Normal [facility] ED NOTEon 09-12-2020 ED NOTE HNO ID: [id number] Author: Ursula De León RN Service: Emergency Medicine Author Type: Registered Nurse Type: ED Notes Filed: 09/12/2020 1:53 PM Note Text: Normal [facility] ED NOTE HNO ID: [id number] Author: Griselda Gaviria RN Service: Emergency Medicine Author Type: Registered Nurse Type: ED Notes Filed: 09/12/2020 11:45 AM Note Text: Pt c/o frequent falls, injury to right shoulder. Pt also c/o possible UTI-having urinary frequency. Normal [facility] ED PROV NOTEon 09-12-2020 ED PROV NOTE HNO ID: [id number] Author: Sneha Jett DO Service: Emergency Medicine [...] (135 lb) (more content not included)... Normal [facility] Urinalysis complete panel (U )on 09-12-2020 Bacteria LM.HPF (Urine sed) [#/Area] Moderate Abnormal None Seen [facility] Comment on above: Order Comment: Speci men Type: URINE SPECIMEN Performed By: #### 2 4356-8 #### [facility] CLIA [id number] [address] [place] [address] [place] Bilirubin Ql (U) Negative Normal Negative [facility] Comment on above: Order Comment: Speci men Type: URINE SPECIMEN Performed By: #### 2 4356-8 #### [facility] CLIA [id number] [facility] [place] [address] [place] Clarity (Unsp spec) Cloudy Abnormal Clear [facility] Comment on above: Order Comment: Speci men Type: URINE SPECIMEN Performed By: #### 2 4356-8 #### [facility] CLIA [id number] [address] [place], [place] [address] [place] Color (U) Yellow Normal Yellow [facility] Comment on above: Order Comment: Speci men Type: URINE SPECIMEN Performed By: #### 2 4356-8 #### [facility] CLIA [id number] [address] [place] [address] Epithelial cells LM.HPF (Urine sed) [#/Area] Few Normal [facility] Comment on above: Order Comment: Speci men Type: URINE SPECIMEN Performed By: #### 2 4356-8 #### [facility] CLIA [id number] [address] [place] [address] Glucose Test strip (U) [Mass/Vol] Negative Normal Negative [facility] Comment on above: Order Comment: Speci men Type: URINE SPECIMEN Performed By: #### 2 4356-8 #### [facility] CLIA [id number] [address] [place], [place] [address] [place] Hemoglobin Ql (U) Trace Abnormal Negative [facility] Comment on above: Order Comment: Speci men Type: URINE SPECIMEN Performed By: #### 2 4356-8 #### [facility] CLIA [id number] [address] [place], [place] [address] [place] Ketones Ql (U) Negative Normal Negative [facility] Comment on above: Order Comment: Speci men Type: URINE SPECIMEN Performed By: #### 2 4356-8 #### [facility] CLIA [id number] [facility] [place] [address] [facility] Leukocyte esterase Test strip Ql (U) 3+ Abnormal Negative [facility] Comment on above: Order Comment: Speci men Type: URINE SPECIMEN Performed By: #### 2 4356-8 #### [facility] CLIA [id number] [address] [place] [address] Nitrite Ql (U) Negative Normal Negative [facility] Comment on above: Order Comment: Speci men Type: URINE SPECIMEN Performed By: #### 2 4356-8 #### [facility] CLIA [id number] [address] [place] [address] pH (U) 6.0 [pH] Normal 5.0-8.0 [facility] Comment on above: Order Comment: Speci men Type: URINE SPECIMEN Performed By: #### 2 4356-8 #### [facility] CLIA [id number] [address] [place] [address] Protein (U) [Mass/Vol] Negative Normal Negative [facility] Comment on above: Order Comment: Speci men Type: URINE SPECIMEN Performed By: #### 2 4356-8 #### [facility] CLIA [id number] [address] [place] [address] RBC LM.HPF (Urine sed) [#/Area] 0-3 /HPF Normal 0-3 /HPF [facility] Comment on above: Order Comment: Speci men Type: URINE SPECIMEN Performed By: #### 2 4356-8 #### [facility] CLIA [id number] [address] [place] [address] Specific gravity (U) [Rel density] 1.015 Normal 1.005-1.030 [facility] Comment on above: Order Comment: Speci men Type: URINE SPECIMEN Performed By: #### 2 4356-8 #### [facility] CLIA [id number] [address] [place] [address] Urobilinogen Ql (U) 0.2 EU/dL Normal 0.2-1.0 EU/dL [facility] Comment on above: Order Comment: Speci men Type: URINE SPECIMEN Performed By: #### 2 4356-8 #### [facility] CLIA [id number] [address] [place], [place] [address] [place] [facility] WBC LM.HPF (Urine sed) [#/Area] 11-25 /HPF Abnormal 0-5 /HPF [facility] Comment on above: Order Comment: Speci men Type: URINE SPECIMEN Performed By: #### 2 4356-8 #### [facility] CLIA [id number] [address] [place], [place] [address] [facility] XR SHLDR >/=3V AP/HECTOR AP/OTH R RTon [...] are seen. IMPRESSION: No acute osseous abnormality. Real Estate Branch Manager: PSC[employer] Transcribe Date/Time: Sep 12 2020 12:55P Dictated by : SHANON CARTER MD This examination was interpreted and the report reviewed and electronically signed by: SHANNO CARTER MD on Sep 12 2020 12:56PM EST [id number] Normal [facility] POCT Creatinineon 06-06-2020 Creatinine [Mass/Vol] 0.8 mg/dL 0.6 - 1.4 mg/dL [facility] Work Phone: Comment on above: Performed by [employer] CLIA ID:[id number] [place], [place] GFR/1.73 sq M predicted among blacks MDRD (S/P/Bld) [Vol rate/Area] mL/min/{1.73_m2} >60 mL/min [facility] Work Phone: GFR/1.73 sq M predicted among non-blacks MDRD (S/P/Bld) [Vol rate/Area] 78.2 mL/min/{1.73_m2} >60 [facility] Work Phone: Comment on above: KDIGO guidelines [...] renal tubular creatinine secretion. Test Performed by [facility], [address], [place] [id number] [place] [address] Work Phone: Brain Natriuretic Peptideon 03-16-2020 Natriuretic peptide B (Bld) [Mass/Vol] 100 pg/mL 0 - 125 pg/mL [place], [place] Test Performed by [facility], [address] [place], [place] [address] [place] COVID-19, Rapidon 03-16-2020 Sodium [Moles/Vol] see below [place], [place] Comment on above: Not Detected Expected Result: Not Detected _ Isothermal nucleic acid amplification performed on the [employer] System by the [facility] Negative results do not preclude SARS-CoV-2 infection and should not be used as the sole basis for treatment or other patient management decisions. This assay was developed by [employer] and distributed under an Emergency Use Authorization (EUA) granted by the FDA for the qualitative detection of SARS-CoV-2 nucleic acid. Provider and patient fact sheets can be found at https://www.fda.gov/media/289694/download and https://www.fda.gov/media/043435/download. Test Performed by [employer] [facility], [address], [place], [place] [address] [place], [place] Comprehensive Metabolic Pane sonja 03-16-2020 Albumin [Mass/Vol] 3.2 g/dL Low 3.5 - 5 g/dL [place] ALP [Catalytic activity/Vol] 98 U/L 38 - 126 U/L [place] ALT [Catalytic activity/Vol] 18 U/L 0 - 34 U/L [place] Comment on above: The ALT test is perf ormed by an updated assay method. Please note that the reference intervals have been changed and are now sex specific. Anion gap [Moles/Vol] 6 mmol/L [place], [place] AST [Catalytic activity/Vol] 27 U/L 15 - 46 U/L [place] Bilirubin Ql (U) 0.1 mg/dL Low 0.2 - 1.3 mg/dL [place] Calcium [Mass/Vol] 8.7 mg/dL 8.4 - 10. 4 mg/dL [place] Chloride [Moles/Vol] 104 mmol/L 98 - 10 7 mmol/L [place] CO2 [Moles/Vol] 29 mmol/L 22 - 30 mmol/L [place] Creatinine [Mass/Vol] 0.85 mg/dL 0.52 - 1.25 mg/dL [place] EGFR IF NonAfrican [place] 72.8 mL/min >60 [place] Comment on above: KDIGO guidelines pro [...] MDRD (S/P/Bld) [Vol rate/Area] 84.3 mL/min/{1.73_m2} >60 [place] Glucose [Mass/Vol] 96 mg/dL 70 - 100 mg/dL [place] Interpretation and review of laboratory results Abnormal [place] Potassium [Moles/Vol] 4.1 mmol/L 3.5 - 5.1 mmol/L [place] Protein [Mass/Vol] 6.0 g/dL Low 6.3 - 8.2 g/dL [place] Sodium [Moles/Vol] 138 mmol/L 135 - 145 mmol/L [place] Urea nitrogen [Mass/Vol] 14 mg/dL 7 - 20 mg/d L [place] Test Performed by [facility], [address] [place] [id number] [place] [address] Hemogram (CBC) w/Auto Diffon 03-16-2020 Absolute Baso # 0.0 10*3/uL 0 - 0.2 10*3/uL [place] Absolute Neut # 5.0 10*3/uL 1.8 - 7 10*3/uL [place] Basophils/100 WBC (Bld) 0.5 % 0 - 2 % [place] Eosinophils (Bld) [#/Vol] 0.1 10*3/uL 0 - 0.5 10*3/uL [place] Eosinophils/100 WBC (Bld) 1.7 % 1 - 6 % [place] Erythrocyte distribution width (RBC) [Ratio] 21.1 % High 11.5 - 14.5 % [place] Granulocytes/100 WBC (Bld) 76.2 % 40 - 80 % [place] Hematocrit (Bld) [Volume fraction] 27.3 % Low 35 - 47 % [place] Hemoglobin (Bld) [Mass/Vol] 8.9 g/dL Low 11.7 - 16 g/dL [place] Interpretation and review of laboratory results Abnormal [place] Lymphocytes (Bld) [#/Vol] 0.6 10*3/uL Low 1 - 4.3 10*3/uL [place] Lymphocytes/100 WBC (Bld) 9.5 % Low 20 - 40 % [place] MCH (RBC) [Entitic mass] 30.6 pg 26 - 34 pg [place] MCHC (RBC) [Mass/Vol] 32.7 % 32 - 36 % [place] MCV (RBC) [Entitic vol] 93.4 fL 79 - 98 fL [place], [place] Monocytes (Bld) [#/Vol] 0.8 10*3/uL 0 - 0.8 10*3/uL [place] Monocytes/100 WBC (Bld) 12.1 % High 2 - 10 % [place] Platelet mean volume (Bld) [Entitic vol] 6.9 fL Low 7.4 - 10.4 fL [place] Platelets (Bld) [#/Vol] 235 10*3/uL 140 - 440 10*3/uL [place] RBC (Bld) [#/Vol] 2.93 10*6/uL Low 3.8 - 5.2 10*6/uL [place] WBC (Bld) [#/Vol] 6.6 10*3/uL 3.6 - 10.7 10*3/uL [place] Test Performed by [employer], [address], [place], [place] [address] [place] Metabolic Panelon 03-16-2020 Sodium [Moles/Vol] Slight [place] RBC MORPHOLOGYon 03-16-2020 Anisocytosis Ql (Bld) Moderate [place] RBC morphology finding Nom (Bld) ABNORMAL [place] Test Performed by [facility], [address], [place], [place] [address] [place] Troponin x1on 03-16-2020 Troponin I.cardiac [Mass/Vol] ng/mL 0 - 0.034 ng/mL [place] Comment on above: . Test Performed by [facility], [address], [place], [place] [address] [place] XR CHEST PORTABLEon 03-16-20 20 Patient Name: GONZALO DELUCA Diagnostic Radiology ACCESSION EXAM DATE/TIME PROCEDURE ORDERING PROVIDER [id number] 03/16/2020 14:04 EST CR Chest Portable RODRÍGUEZ SOLIZ, AMELIE Cesar CPT code 72677 Reason For Exam (CR Chest Portable) Cough [...] JOHN Transcribed Date and Time: 03/16/2020 2:16 [place], [place] Real, [facility] 03/16/2020 2:16 PM EST Patient Name: GONZALO DELUCA Diagnostic Radiology ACCESSION EXAM DATE/TIME PROCEDURE ORDERING PROVIDER [id number] 03/16/2020 14:04 EST CR Chest Portable MARTÍNEZRODRÍGUEZ, AMELIE Cesar CPT code 80539 Reason For Exam (CR Chest Portable) Cough [...] JOHN Transcribed Date and Time: 03/16/2020 2:16 [place] CBC Auto Differentialon 12-0 Absolute Baso # 0.0 10*3/uL 0 - 0.2 10*3/uL [place] Absolute Neut # 2.5 10*3/uL 1.8 - 7 10*3/uL [place] Basophils/100 WBC (Bld) 0.5 % 0 - 2 % [place] Eosinophils (Bld) [#/Vol] 0.2 10*3/uL 0 - 0.5 10*3/uL [place] Eosinophils/100 WBC (Bld) 6.1 % High 1 - 6 % [place] Erythrocyte distribution width (RBC) [Ratio] 16.2 % High 11.5 - 14.5 % [place] Granulocytes/100 WBC (Bld) 70.6 % 40 - 80 % [place] Hematocrit (Bld) [Volume fraction] 29.6 % Low 35 - 47 % [place] Hemoglobin (Bld) [Mass/Vol] 9.8 g/dL Low 11.7 - 16 g/dL [place] Interpretation and review of laboratory results Abnormal [place] Lymphocytes (Bld) [#/Vol] 0.5 10*3/uL Low 1 - 4.3 10*3/uL [place] Lymphocytes/100 WBC (Bld) 13.0 % Low 20 - 40 % [place] MCH (RBC) [Entitic mass] 29.6 pg 26 - 34 pg [place] MCHC (RBC) [Mass/Vol] 33.0 % 32 - 36 % [place] MCV (RBC) [Entitic vol] 89.6 fL 79 - 98 fL [place], [place] Monocytes (Bld) [#/Vol] 0.3 10*3/uL 0 - 0.8 10*3/uL [place] Monocytes/100 WBC (Bld) 9.8 % 2 - 10 % [place] Platelet mean volume (Bld) [Entitic vol] 7.5 fL 7.4 - 10.4 fL [place] Platelets (Bld) [#/Vol] 155 10*3/uL 140 - 440 10*3/uL [place] RBC (Bld) [#/Vol] 3.30 10*6/uL Low 3.8 - 5.2 10*6/uL [place] WBC (Bld) [#/Vol] 3.5 10*3/uL Low 3.6 - 10.7 10*3/uL [place] Test Performed by [facility], [address] [place] [address] [place], [place] Comp Metabolic Panelon 02-20 ALP [Catalytic activity/Vol] 89 U/L Normal 38-126 [facility] [employer] [facility] Comment on above: Performed By: #### C MP3, MG3, HEMDF ####[facility] [employer] [id number] [place] [address] ALT [Catalytic activity/Vol] 18 U/L Normal 0-[address] [facility] Comment on above: Result Comment: The ALT test is performed by an updated assay method. Please note that the reference intervals have been changed and are now sex specific. Performed By: #### C MP3, MG3, HEMDF ####[place] [id number] [address] Calcium [Mass/Vol] 8.8 mg/dL Normal 8.4-10.[address] [facility] Comment on above: Performed By: #### C MP3, MG3, HEMDF ####[place] [id number] [facility] [place] [place] [address] Glucose [Mass/Vol] 79 mg/dL Normal 70-[address] [facility] Comment on above: Performed By: #### C MP3, MG3, HEMDF ####[place] [address] [facility] [place] Protein [Mass/Vol] 6.0 g/dL Low 6.3-8.[address] [facility] Comment on above: Performed By: #### C MP3, MG3, HEMDF ####[place] [id number] [facility] [place] Urea nitrogen [Mass/Vol] 11 mg/dL Normal 7-[address] [facility] Comment on above: Performed By: #### C MP3, MG3, HEMDF ####[place] [id number] [facility] [place] Anion gap [Moles/Vol] 5 Normal [facility] Comment on above: Performed By: #### C MP3, MG3, HEMDF ####[place] [id number] [facility] [place] AST [Catalytic activity/Vol] 35 U/L Normal 15-[address] [facility] Comment on above: Performed By: #### C MP3, MG3, HEMDF ####[place] [id number] [facility] Bilirubin [Mass/Vol] 0.3 mg/dL Normal 0.2-1.3 [facility] Comment on above: Performed By: #### C MP3, MG3, HEMDF ####[facility] [place], [place] CO2 [Moles/Vol] 31 mmol/L High 22-30 [facility] Comment on above: Performed By: #### C MP3, MG3, HEMDF ####[facility] [place], [place] Creatinine [Mass/Vol] 0.64 mg/dL Normal 0.52-1.25 [facility] Comment on above: Performed By: #### C MP3, MG3, HEMDF ####[place] [address] [place], [place] GFR/1.73 sq M predicted among blacks MDRD (S/P/Bld) [Vol rate/Area] mL/min/{1.73_m2} Normal >[address] [facility] Comment on above: Performed By: #### C MP3, MG3, HEMDF ####[place] [id number] [place], [place] GFR/1.73 sq M predicted among non-blacks MDRD (S/P/Bld) [Vol rate/Area] mL/min/{1.73_m2} Normal >[address] [facility] Comment on above: Result Comment: KDIG [...] Performed By: #### C MP3, MG3, HEMDF ####[facility] [employer] [address] [place], [place] Chloride [Moles/Vol] 101 mmol/L Normal 98-107 [facility] Comment on above: Performed By: #### C MP3, MG3, HEMDF ####[facility] [place], [place] Potassium [Moles/Vol] 4.2 mmol/L Normal 3.5-5.1 [facility] Comment on above: Performed By: #### C MP3, MG3, HEMDF ####[facility] [place], [place] Sodium [Moles/Vol] 137 mmol/L Normal 135-[address] [facility] Comment on above: Performed By: #### C MP3, MG3, HEMDF ####[facility] [place], [place] Albumin [Mass/Vol] 2.2 g/dL Low 3.5-5.[address] [facility] Comment on above: Performed By: #### C MP3, MG3, HEMDF ####[facility] [place], [place] Comprehensive Metabolic Pane sonja 02-21-2020 Albumin [Mass/Vol] 2.2 g/dL Low 3.5 - 5 g/dL [place] ALP [Catalytic activity/Vol] 89 U/L 38 - 126 U/L [place] ALT [Catalytic activity/Vol] 18 U/L 0 - 34 U/L [place] Comment on above: The ALT test is perf ormed by an updated assay method. Please note that the reference intervals have been changed and are now sex specific. Anion gap [Moles/Vol] 5 mmol/L [place], [place] AST [Catalytic activity/Vol] 35 U/L 15 - 46 U/L [place] Bilirubin Ql (U) 0.3 mg/dL 0.2 - 1.3 mg/dL [place] Calcium [Mass/Vol] 8.8 mg/dL 8.4 - 10. 4 mg/dL [place] Chloride [Moles/Vol] 101 mmol/L 98 - 10 7 mmol/L [place] CO2 [Moles/Vol] 31 mmol/L High 22 - 30 mmol/L [place] Creatinine [Mass/Vol] 0.64 mg/dL 0.52 - 1.25 mg/dL [place] EGFR IF NonAfrican [place] >90.0 >60 mL/min [place] Comment on above: KDIGO guidelines pro [...] MDRD (S/P/Bld) [Vol rate/Area] mL/min/{1.73_m2} >60 mL/min [place] Glucose [Mass/Vol] 79 mg/dL 70 - 100 mg/dL [place] Interpretation and review of laboratory results Abnormal [place] Potassium [Moles/Vol] 4.2 mmol/L 3.5 - 5.1 mmol/L [place] Protein [Mass/Vol] 6.0 g/dL Low 6.3 - 8.2 g/dL [place] Sodium [Moles/Vol] 137 mmol/L 135 - 145 mmol/L [place] Urea nitrogen [Mass/Vol] 11 mg/dL 7 - 20 mg/d L [place] Hemogram w/ Autodiffon 02-20 Abs Baso Cnt 0.0 10*3/uL Normal 0.0-0.2 [facility] [employer] [facility] Comment on above: Performed By: #### C MP3, MG3, HEMDF #### [facility] [address] [place], [place] Abs Neutrophile Cnt 2.5 10*3/uL Normal 1.8-7.0 [facility] Comment on above: Performed By: #### C MP3, MG3, HEMDF #### [place] [address] [place], [place] Basophils/100 WBC (Bld) 0.5 % Normal 0.0-2.0 [facility] Comment on above: Performed By: #### C MP3, MG3, HEMDF #### [place] [address] [place], [place] Eosinophils (Bld) [#/Vol] 0.2 10*3/uL Normal 0.0-0.[address] [facility] Comment on above: Performed By: #### C MP3, MG3, HEMDF #### [place] [address] [place], [place] Eosinophils/100 WBC (Bld) 6.1 % High 1.0-6.[address] [facility] Comment on above: Performed By: #### C MP3, MG3, HEMDF #### [place] [address] [place], [place] Erythrocyte distribution width (RBC) [Ratio] 16.2 % High 11.5-14.[address] [facility] Comment on above: Performed By: #### C MP3, MG3, HEMDF #### [place] [address] [place], [place] Granulocytes/100 WBC (Bld) 70.6 % Normal 40.0-80.[address] [facility] Comment on above: Performed By: #### C MP3, MG3, HEMDF #### [place] [address] [place], [place] Hematocrit (Bld) [Volume fraction] 29.6 % Low 35.0-47.[address] [facility] Comment on above: Performed By: #### C MP3, MG3, HEMDF #### [place] [address] [place], [place] Hemoglobin (Bld) [Mass/Vol] 9.8 g/dL Low 11.7-16.[address] [facility] Comment on above: Performed By: #### C MP3, MG3, HEMDF #### [facility] [address] [place], [place] Lymphocytes (Bld) [#/Vol] 0.5 10*3/uL Low 1.0-4.[address] [facility] Comment on above: Performed By: #### C MP3, MG3, HEMDF #### [place] [address] [place], [place] Lymphocytes/100 WBC (Bld) 13.0 % Low 20.0-40.[address] [facility] Comment on above: Performed By: #### C MP3, MG3, HEMDF #### [place] [address] [place], [place] MCH (RBC) [Entitic mass] 29.6 pg Normal 26.0-34.[address] [facility] Comment on above: Performed By: #### C MP3, MG3, HEMDF #### [place] [address] [place], [place] MCHC (RBC) [Mass/Vol] 33.0 % Normal 32.0-36.0 [facility] Comment on above: Performed By: #### C MP3, MG3, HEMDF #### [place] [address] [place] MCV (RBC) [Entitic vol] 89.6 fL Normal 79.0-98.0 [facility] Comment on above: Performed By: #### C MP3, MG3, HEMDF #### [place] [address] [place], [place] Monocytes (Bld) [#/Vol] 0.3 10*3/uL Normal 0.0-0.[address] [facility] Comment on above: Performed By: #### C MP3, MG3, HEMDF #### [place] [address] [place], [place] Monocytes/100 WBC (Bld) 9.8 % Normal 2.0-10.0 [facility] Comment on above: Performed By: #### C MP3, MG3, HEMDF #### [place] [address] [place] Platelet mean volume (Bld) [Entitic vol] 7.5 fL Normal 7.4-10.[address] [facility] Comment on above: Performed By: #### C MP3, MG3, HEMDF #### [place] [address] [place] Platelets (Bld) [#/Vol] 155 10*3/uL Normal 140-[address] [facility] Comment on above: Performed By: #### C MP3, MG3, HEMDF #### [place] [address] [place] RBC (Bld) [#/Vol] 3.30 10*6/uL Low 3.80-5.[address] [facility] Comment on above: Performed By: #### C MP3, MG3, HEMDF #### [place] [address] [place] WBC (Bld) [#/Vol] 3.5 10*3/uL Low 3.6-10.[address] [facility] Comment on above: Performed By: #### C MP3, MG3, HEMDF #### [place] [address] [place] Magnesiumon 02-21-2020 Magnesium [Mass/Vol] 1.6 mg/dL Normal 1.6-2.3 [facility] Comment on above: Performed By: #### C MP3, MG3, HEMDF #### [place] [address] [place], [place] Magnesium [Mass/Vol] 1.6 mg/dL 1.6 - 2 .3 mg/dL [facility], [place] Otheron 02-21-2020 Test Performed by [place] [address] [place] [address] [facility], [place] CBC Auto Differentialon 11-1 Absolute Baso # 0.0 10*3/uL 0 - 0.2 10*3/uL [place] Absolute Neut # 5.3 10*3/uL 1.8 - 7 10*3/uL [place] Basophils/100 WBC (Bld) 0.4 % 0 - 2 % [place] Eosinophils (Bld) [#/Vol] 0.1 10*3/uL 0 - 0.5 10*3/uL [place] Eosinophils/100 WBC (Bld) 1.0 % 1 - 6 % [place] Erythrocyte distribution width (RBC) [Ratio] 15.0 % High 11.5 - 14.5 % [place] Granulocytes/100 WBC (Bld) 84.0 % High 40 - 80 % [place] Hematocrit (Bld) [Volume fraction] 34.1 % Low 35 - 47 % [place] Hemoglobin (Bld) [Mass/Vol] 11.3 g/dL Low 11.7 - 16 g/dL [place] Lymphocytes (Bld) [#/Vol] 0.4 10*3/uL Low 1 - 4.3 10*3/uL [place] Lymphocytes/100 WBC (Bld) 5.7 % Low 20 - 40 % [place] MCH (RBC) [Entitic mass] 29.7 pg 26 - 34 pg [place] MCHC (RBC) [Mass/Vol] 33.0 % 32 - 36 % [place] MCV (RBC) [Entitic vol] 89.8 fL 79 - 98 fL [place], [place] Monocytes (Bld) [#/Vol] 0.6 10*3/uL 0 - 0.8 10*3/uL [place] Monocytes/100 WBC (Bld) 8.9 % 2 - 10 % [place] Platelet mean volume (Bld) [Entitic vol] 6.7 fL Low 7.4 - 10.4 fL [place] Platelets (Bld) [#/Vol] 315 10*3/uL 140 - 440 10*3/uL [place] RBC (Bld) [#/Vol] 3.79 10*6/uL Low 3.8 - 5.2 10*6/uL [place] WBC (Bld) [#/Vol] 6.3 10*3/uL 3.6 - 10.7 10*3/uL [place] Comprehensive Metabolic Pane sonja 02-07-2020 Albumin [Mass/Vol] 3.5 g/dL 3.5 - 5 g/dL [place] ALP [Catalytic activity/Vol] 91 U/L 38 - 126 U/L [place] ALT [Catalytic activity/Vol] 21 U/L 0 - 34 U/L [place] Comment on above: The ALT test is perf ormed by an updated assay method. Please note that the reference intervals have been changed and are now sex specific. Anion gap [Moles/Vol] 4 mmol/L [place] AST [Catalytic activity/Vol] 24 U/L 15 - 46 U/L [place] Bilirubin Ql (U) 0.5 mg/dL 0.2 - 1.3 mg/dL [place] Calcium [Mass/Vol] 9.1 mg/dL 8.4 - 10. 4 mg/dL [place] Chloride [Moles/Vol] 101 mmol/L 98 - 10 7 mmol/L [place] CO2 [Moles/Vol] 33 mmol/L High 22 - 30 mmol/L [place] Creatinine [Mass/Vol] 0.66 mg/dL 0.52 - 1.25 mg/dL [place] EGFR IF NonAfrican [place]ian >90.0 >60 mL/min [place] Comment on above: KDIGO guidelines pro [...] MDRD (S/P/Bld) [Vol rate/Area] mL/min/{1.73_m2} >60 mL/min [place] Glucose [Mass/Vol] 97 mg/dL 70 - 100 mg/dL [place] Potassium [Moles/Vol] 3.9 mmol/L 3.5 - 5.1 mmol/L [place] Protein [Mass/Vol] 6.1 g/dL Low 6.3 - 8.2 g/dL [place] Sodium [Moles/Vol] 139 mmol/L 135 - 145 mmol/L [place] Urea nitrogen [Mass/Vol] 19 mg/dL 7 - 20 mg/d L [place] Magnesiumon 02-07-2020 Magnesium [Mass/Vol] 1.5 mg/dL Low 1.6 - 2 .3 mg/dL [place] Otheron 02-07-2020 Interpretation and review of laboratory results Abnormal [place] Test Performed by [facility], [address] [place] [address] [place], [place] CBC Auto Differentialon 01-19 Absolute Baso # 0.0 10*3/uL 0 - 0.2 10*3/uL [place] Absolute Neut # 7.6 10*3/uL High 1.8 - 7 10*3/uL [place] Basophils/100 WBC (Bld) 0.1 % 0 - 2 % [place] Eosinophils (Bld) [#/Vol] 0.0 10*3/uL 0 - 0.5 10*3/uL [place] Eosinophils/100 WBC (Bld) 0.0 % Low 1 - 6 % [place] Erythrocyte distribution width (RBC) [Ratio] 14.3 % 11.5 - 14.5 % [place] Granulocytes/100 WBC (Bld) 94.4 % High 40 - 80 % [place] Hematocrit (Bld) [Volume fraction] 35.2 % 35 - 47 % [place] Hemoglobin (Bld) [Mass/Vol] 11.3 g/dL Low 11.7 - 16 g/dL [place] Interpretation and review of laboratory results Abnormal [place] Lymphocytes (Bld) [#/Vol] 0.2 10*3/uL Low 1 - 4.3 10*3/uL [place] Lymphocytes/100 WBC (Bld) 2.8 % Low 20 - 40 % [place] MCH (RBC) [Entitic mass] 29.2 pg 26 - 34 pg [place] MCHC (RBC) [Mass/Vol] 32.2 % 32 - 36 % [place] MCV (RBC) [Entitic vol] 90.7 fL 79 - 98 fL [place] Monocytes (Bld) [#/Vol] 0.2 10*3/uL 0 - 0.8 10*3/uL [place] Monocytes/100 WBC (Bld) 2.7 % 2 - 10 % [place] Platelet mean volume (Bld) [Entitic vol] 8.1 fL 7.4 - 10.4 fL [place] Platelets (Bld) [#/Vol] 252 10*3/uL 140 - 440 10*3/uL [place] RBC (Bld) [#/Vol] 3.88 10*6/uL 3.8 - 5.2 10*6/uL [place] WBC (Bld) [#/Vol] 8.1 10*3/uL 3.6 - 10.7 10*3/uL [place] Test Performed by [facility], [address] [place] [address] [place], [place] Comp Metabolic Panelon 01-30 ALP [Catalytic activity/Vol] 112 U/L Normal 38-126 [facility] [employer] [facility] Comment on above: Performed By: #### C MP3, MG3, HEMDF #### [facility] [address] [place], [place] ALT [Catalytic activity/Vol] 20 U/L Normal 0-[address] [facility] Comment on above: Result Comment: The ALT test is performed by an updated assay method. Please note that the reference intervals have been changed and are now sex specific. Performed By: #### C MP3, MG3, HEMDF #### [facility] [address] [place], [place] Calcium [Mass/Vol] 9.3 mg/dL Normal 8.4-10.[address] [facility] Comment on above: Performed By: #### C MP3, MG3, HEMDF #### [place] [address] [place], [place] Glucose [Mass/Vol] 119 mg/dL High 70-[address] [facility] Comment on above: Performed By: #### C MP3, MG3, HEMDF #### [place] [address] [place] Urea nitrogen [Mass/Vol] 16 mg/dL Normal 7-[address] [facility] Comment on above: Performed By: #### C MP3, MG3, HEMDF #### [address] [place] [address] [address] [place], [place] Anion gap [Moles/Vol] 9 Normal [facility] Comment on above: Performed By: #### C MP3, MG3, HEMDF #### [facility] [address] [place], [place] AST [Catalytic activity/Vol] 26 U/L Normal 15-[address] [facility] Comment on above: Performed By: #### C MP3, MG3, HEMDF #### [address] [place] [address] [address] [place], [place] Bilirubin [Mass/Vol] 0.2 mg/dL Normal 0.2-1.3 [facility] Comment on above: Performed By: #### C MP3, MG3, HEMDF #### [address] [address] [place], [place] CO2 [Moles/Vol] 28 mmol/L Normal 22-30 [facility] Comment on above: Performed By: #### C MP3, MG3, HEMDF #### [address] Creatinine [Mass/Vol] 0.54 mg/dL Normal 0.52-1.25 [facility] Comment on above: Performed By: #### C MP3, MG3, HEMDF #### [address] GFR/1.73 sq M predicted among blacks MDRD (S/P/Bld) [Vol rate/Area] mL/min/{1.73_m2} Normal >[address] [facility] Comment on above: Performed By: #### C MP3, MG3, HEMDF #### [address] GFR/1.73 sq M predicted among non-blacks MDRD (S/P/Bld) [Vol rate/Area] mL/min/{1.73_m2} Normal >[address] [facility] Comment on above: Result Comment: KDIG [...] By: #### C MP3, MG3, HEMDF #### [address] Protein [Mass/Vol] 6.9 g/dL Normal 6.3-8.[address] [facility] Comment on above: Performed By: #### C MP3, MG3, HEMDF #### [facility] [address] [place] [address] Chloride [Moles/Vol] 102 mmol/L Normal 98-107 [facility] Comment on above: Performed By: #### C MP3, MG3, HEMDF #### [facility] [address] [place] [address] Potassium [Moles/Vol] 4.5 mmol/L Normal 3.5-5.1 [facility] Comment on above: Performed By: #### C MP3, MG3, HEMDF #### [facility] [address] [place], [place] [id number] Sodium [Moles/Vol] 139 mmol/L Normal 135-[address] [facility] Comment on above: Performed By: #### C MP3, MG3, HEMDF #### [facility] [address] [place] [address] Albumin [Mass/Vol] 3.8 g/dL Normal 3.5-5.[address] [facility] Comment on above: Performed By: #### C MP3, MG3, HEMDF #### [place] [address] [place] [address] Comprehensive Metabolic Pane sonja 01-31-2020 Albumin [Mass/Vol] 3.8 g/dL 3.5 - 5 g/dL [place] ALP [Catalytic activity/Vol] 112 U/L 38 - 126 U/L [place] ALT [Catalytic activity/Vol] 20 U/L 0 - 34 U/L [place] Comment on above: The ALT test is perf ormed by an updated assay method. Please note that the reference intervals have been changed and are now sex specific. Anion gap [Moles/Vol] 9 mmol/L [place], [place] AST [Catalytic activity/Vol] 26 U/L 15 - 46 U/L [place] Bilirubin Ql (U) 0.2 mg/dL 0.2 - 1.3 mg/dL [place] Calcium [Mass/Vol] 9.3 mg/dL 8.4 - 10. 4 mg/dL [place] Chloride [Moles/Vol] 102 mmol/L 98 - 10 7 mmol/L [place] CO2 [Moles/Vol] 28 mmol/L 22 - 30 mmol/L [place] Creatinine [Mass/Vol] 0.54 mg/dL 0.52 - 1.25 mg/dL [place] EGFR IF NonAfrican Montserr[place]ian >90.0 >60 mL/min [place] Comment on above: KDIGO guidelines pro [...] MDRD (S/P/Bld) [Vol rate/Area] mL/min/{1.73_m2} >60 mL/min [place] Glucose [Mass/Vol] 119 mg/dL High 70 - 100 mg/dL [place] Interpretation and review of laboratory results Abnormal [place] Potassium [Moles/Vol] 4.5 mmol/L 3.5 - 5.1 mmol/L [place] Protein [Mass/Vol] 6.9 g/dL 6.3 - 8.2 g/dL [place] Sodium [Moles/Vol] 139 mmol/L 135 - 145 mmol/L [place] Urea nitrogen [Mass/Vol] 16 mg/dL 7 - 20 mg/d L [place] Hemogram w/ Autodiffon 01-30 Abs Baso Cnt 0.0 10*3/uL Normal 0.0-0.2 [facility] Comment on above: Performed By: #### C MP3, MG3, HEMDF #### [place] [address] [place] [address] Abs Neutrophile Cnt 7.6 10*3/uL High 1.8-7.0 [facility] Comment on above: Performed By: #### C MP3, MG3, HEMDF #### [place] [address] [place] [address] Basophils/100 WBC (Bld) 0.1 % Normal 0.0-2.0 [facility] Comment on above: Performed By: #### C MP3, MG3, HEMDF #### [place] [address] [place] Eosinophils (Bld) [#/Vol] 0.0 10*3/uL Normal 0.0-0.[address] [facility] Comment on above: Performed By: #### C MP3, MG3, HEMDF #### [place] [address] [place] Eosinophils/100 WBC (Bld) 0.0 % Low 1.0-6.[address] [facility] Comment on above: Performed By: #### C MP3, MG3, HEMDF #### [place] [address] [place], [place] Erythrocyte distribution width (RBC) [Ratio] 14.3 % Normal 11.5-14.[address] [facility] Comment on above: Performed By: #### C MP3, MG3, HEMDF #### [place] [address] [place] [address] Granulocytes/100 WBC (Bld) 94.4 % High 40.0-80.[address] [facility] Comment on above: Performed By: #### C MP3, MG3, HEMDF #### [place] [place] [address] Hematocrit (Bld) [Volume fraction] 35.2 % Normal 35.0-47.[address] [facility] Comment on above: Performed By: #### C MP3, MG3, HEMDF #### [place] [address] [place] Hemoglobin (Bld) [Mass/Vol] 11.3 g/dL Low 11.7-16.[address] [facility] Comment on above: Performed By: #### C MP3, MG3, HEMDF #### [place] [address] [place], [place] Lymphocytes (Bld) [#/Vol] 0.2 10*3/uL Low 1.0-4.[address] [facility] Comment on above: Performed By: #### C MP3, MG3, HEMDF #### [place] [address] [place], [place] Lymphocytes/100 WBC (Bld) 2.8 % Low 20.0-40.[address] [facility] Comment on above: Performed By: #### C MP3, MG3, HEMDF #### [place] [address] [place], [place] MCH (RBC) [Entitic mass] 29.2 pg Normal 26.0-34.[address] [facility] Comment on above: Performed By: #### C MP3, MG3, HEMDF #### [address] MCHC (RBC) [Mass/Vol] 32.2 % Normal 32.0-36.0 [facility] Comment on above: Performed By: #### C MP3, MG3, HEMDF #### [place] [address] [place], [place] MCV (RBC) [Entitic vol] 90.7 fL Normal 79.0-98.0 [facility] Comment on above: Performed By: #### C MP3, MG3, HEMDF #### [address] Monocytes (Bld) [#/Vol] 0.2 10*3/uL Normal 0.0-0.[address] [facility] Comment on above: Performed By: #### C MP3, MG3, HEMDF #### [place] [address] [place] [address] Monocytes/100 WBC (Bld) 2.7 % Normal 2.0-10.0 [facility] Comment on above: Performed By: #### C MP3, MG3, HEMDF #### [place] [address] [place] [address] Platelet mean volume (Bld) [Entitic vol] 8.1 fL Normal 7.4-10.[address] [facility] Comment on above: Performed By: #### C MP3, MG3, HEMDF #### [place] [address] [place] [address] Platelets (Bld) [#/Vol] 252 10*3/uL Normal 140-[address] [facility] Comment on above: Performed By: #### C MP3, MG3, HEMDF #### [place] [address] [place], [place] RBC (Bld) [#/Vol] 3.88 10*6/uL Normal 3.80-5.[address] [facility] Comment on above: Performed By: #### C MP3, MG3, HEMDF #### [place] [address] [place], [place] WBC (Bld) [#/Vol] 8.1 10*3/uL Normal 3.6-10.[address] [facility] Comment on above: Performed By: #### C MP3, MG3, HEMDF #### [place] [address] [place] [address] Magnesiumon 01-31-2020 Magnesium [Mass/Vol] 1.8 mg/dL Normal 1.6-2.3 [facility] Comment on above: Performed By: #### C MP3, MG3, HEMDF #### [address] Magnesium [Mass/Vol] 1.8 mg/dL 1.6 - 2 .3 mg/dL [facility], [place] Otheron 01-31-2020 Test Performed by [address] [address] [facility], [place] CBC Auto Differentialon 11-0 Absolute Baso # 0.0 10*3/uL 0 - 0.2 10*3/uL [place], [place] Absolute Neut # 5.1 10*3/uL 1.8 - 7 10*3/uL [place] Basophils/100 WBC (Bld) 0.5 % 0 - 2 % [place] Eosinophils (Bld) [#/Vol] 0.5 10*3/uL 0 - 0.5 10*3/uL [place] Eosinophils/100 WBC (Bld) 6.7 % High 1 - 6 % [place] Erythrocyte distribution width (RBC) [Ratio] 14.5 % 11.5 - 14.5 % [place] Granulocytes/100 WBC (Bld) 73.3 % 40 - 80 % [place] Hematocrit (Bld) [Volume fraction] 35.8 % 35 - 47 % [place] Hemoglobin (Bld) [Mass/Vol] 11.5 g/dL Low 11.7 - 16 g/dL [place] Interpretation and review of laboratory results Abnormal [place] Lymphocytes (Bld) [#/Vol] 0.8 10*3/uL Low 1 - 4.3 10*3/uL [place] Lymphocytes/100 WBC (Bld) 12.2 % Low 20 - 40 % [place] MCH (RBC) [Entitic mass] 29.3 pg 26 - 34 pg [place] MCHC (RBC) [Mass/Vol] 32.2 % 32 - 36 % [place] MCV (RBC) [Entitic vol] 90.9 fL 79 - 98 fL [place] Monocytes (Bld) [#/Vol] 0.5 10*3/uL 0 - 0.8 10*3/uL [place], [place] Monocytes/100 WBC (Bld) 7.3 % 2 - 10 % [place] Platelet mean volume (Bld) [Entitic vol] 8.1 fL 7.4 - 10.4 fL [place] Platelets (Bld) [#/Vol] 219 10*3/uL 140 - 440 10*3/uL [place] RBC (Bld) [#/Vol] 3.94 10*6/uL 3.8 - 5.2 10*6/uL [place] WBC (Bld) [#/Vol] 6.9 10*3/uL 3.6 - 10.7 10*3/uL [place] Test Performed by [facility] [employer] [facility], [address], [place], [place] [address] [place], [place] Comprehensive Metabolic Pane sonja 01-24-2020 Albumin [Mass/Vol] 3.9 g/dL 3.5 - 5 g/dL [place] ALP [Catalytic activity/Vol] 97 U/L 38 - 126 U/L [place] ALT [Catalytic activity/Vol] 22 U/L 0 - 34 U/L [place] Comment on above: The ALT test is perf ormed by an updated assay method. Please note that the reference intervals have been changed and are now sex specific. Anion gap [Moles/Vol] 7 mmol/L [place], [place] AST [Catalytic activity/Vol] 27 U/L 15 - 46 U/L [place] Bilirubin Ql (U) 0.4 mg/dL 0.2 - 1.3 mg/dL [place] Calcium [Mass/Vol] 9.4 mg/dL 8.4 - 10. 4 mg/dL [place] Chloride [Moles/Vol] 102 mmol/L 98 - 10 7 mmol/L [place] CO2 [Moles/Vol] 31 mmol/L High 22 - 30 mmol/L [place] Creatinine [Mass/Vol] 0.73 mg/dL 0.52 - 1.25 mg/dL [place] EGFR IF NonAfrican [place]err[place]ian 87.5 mL/min >60 [place] Comment on above: KDIGO guidelines pro [...] MDRD (S/P/Bld) [Vol rate/Area] mL/min/{1.73_m2} >60 mL/min [place] Glucose [Mass/Vol] 106 mg/dL High 70 - 100 mg/dL [place] Interpretation and review of laboratory results Abnormal [place] Potassium [Moles/Vol] 4.3 mmol/L 3.5 - 5.1 mmol/L [place] Protein [Mass/Vol] 6.8 g/dL 6.3 - 8.2 g/dL [place] Sodium [Moles/Vol] 140 mmol/L 135 - 145 mmol/L [place] Urea nitrogen [Mass/Vol] 20 mg/dL 7 - 20 mg/d L [place] Magnesiumon 01-24-2020 Magnesium [Mass/Vol] 2.0 mg/dL 1.6 - 2 .3 mg/dL [place], [place] Otheron 01-24-2020 Test Performed by [facility], [address] [place], [place] [address] [place], [place] CBC Auto Differentialon - Absolute Baso # 0.1 10*3/uL 0 - 0.2 10*3/uL [place] Absolute Neut # 5.5 10*3/uL 1.8 - 7 10*3/uL [place] Basophils/100 WBC (Bld) 1.0 % 0 - 2 % [place] Eosinophils (Bld) [#/Vol] 1.2 10*3/uL High 0 - 0.5 10*3/uL [place] Eosinophils/100 WBC (Bld) 13.8 % High 1 - 6 % [place] Erythrocyte distribution width (RBC) [Ratio] 14.0 % 11.5 - 14.5 % [place] Granulocytes/100 WBC (Bld) 63.2 % 40 - 80 % [place] Hematocrit (Bld) [Volume fraction] 37.1 % 35 - 47 % [place] Hemoglobin (Bld) [Mass/Vol] 12.4 g/dL 11.7 - 16 g/dL [place] Interpretation and review of laboratory results Abnormal [place] Lymphocytes (Bld) [#/Vol] 1.3 10*3/uL 1 - 4.3 10*3/uL [place] Lymphocytes/100 WBC (Bld) 15.1 % Low 20 - 40 % [place] MCH (RBC) [Entitic mass] 30.2 pg 26 - 34 pg [place] MCHC (RBC) [Mass/Vol] 33.5 % 32 - 36 % [place] MCV (RBC) [Entitic vol] 90.0 fL 79 - 98 fL [place] Monocytes (Bld) [#/Vol] 0.6 10*3/uL 0 - 0.8 10*3/uL [place] Monocytes/100 WBC (Bld) 6.9 % 2 - 10 % [place] Platelet mean volume (Bld) [Entitic vol] 8.1 fL 7.4 - 10.4 fL [place] Platelets (Bld) [#/Vol] 224 10*3/uL 140 - 440 10*3/uL [place] RBC (Bld) [#/Vol] 4.12 10*6/uL 3.8 - 5.2 10*6/uL [place] WBC (Bld) [#/Vol] 8.7 10*3/uL 3.6 - 10.7 10*3/uL [place] Test Performed by [facility], [address], [address] [facility] [place], [place] Comprehensive Metabolic Pane sonja 01-17-2020 Albumin [Mass/Vol] 3.8 g/dL 3.5 - 5 g/dL [place] ALP [Catalytic activity/Vol] 99 U/L 38 - 126 U/L [place] ALT [Catalytic activity/Vol] 17 U/L 0 - 34 U/L [place] Comment on above: The ALT test is perf ormed by an updated assay method. Please note that the reference intervals have been changed and are now sex specific. Anion gap [Moles/Vol] 7 mmol/L [place], [place] AST [Catalytic activity/Vol] 29 U/L 15 - 46 U/L [place] Bilirubin Ql (U) 0.3 mg/dL 0.2 - 1.3 mg/dL [place] Calcium [Mass/Vol] 8.7 mg/dL 8.4 - 10. 4 mg/dL [place] Chloride [Moles/Vol] 102 mmol/L 98 - 10 7 mmol/L [place] CO2 [Moles/Vol] 33 mmol/L High 22 - 30 mmol/L [place] Creatinine [Mass/Vol] 0.75 mg/dL 0.52 - 1.25 mg/dL [place] EGFR IF NonAfrican [place]serr[place]ian 84.7 mL/min >60 [place] Comment on above: KDIGO guidelines pro [...] MDRD (S/P/Bld) [Vol rate/Area] mL/min/{1.73_m2} >60 mL/min [place] Glucose [Mass/Vol] 93 mg/dL 70 - 100 mg/dL [place] Interpretation and review of laboratory results Abnormal [place] Potassium [Moles/Vol] 2.8 mmol/L Low 3.5 - 5.1 mmol/L [place] Protein [Mass/Vol] 6.6 g/dL 6.3 - 8.2 g/dL [place] Sodium [Moles/Vol] 142 mmol/L 135 - 145 mmol/L [place] Urea nitrogen [Mass/Vol] 9 mg/dL 7 - 20 mg/d L [place] Magnesiumon 01-17-2020 Magnesium [Mass/Vol] 1.9 mg/dL 1.6 - 2 .3 mg/dL [place] Otheron 01-17-2020 Test Performed by [facility], [address] [place] [id number] [place] [address] CT Nonbill Guide Rad Therapy on 12-26-2019 CT Nonbill Guide Rad Therapy Patient Name: GONZALO DELUCA CT Exam Date/Time 12/26/2019 11:38:[address] Nonbill Guide Rad Therapy Ordering Physician MD WU, BURKE E Accession Number [id number] Reason For Exam Endometriod Ca Report CT of the abdomen and pelvis without intravenous contrast, 12/26/2019. Reason for examination: Endometrial cancer. Patient for radiation therapy. COMPARISON: October 27, 2019. TECHNIQUE: Large prdyz-if-tzdr 3 mm axial images were obtained through [...] Transcribed Date and Time: 12/26/2019 3:[address] [facility] Otheron 12-26-2019 Patient Name: GONZALO DELUCA ---CT--- Exam Date/Time 12/26/2019 11:38:[address] Nonbill Guide Rad Therapy Ordering Physician MD WU, BURKE E Accession Number [id number] Reason For Exam Endometriod Ca Report CT of the abdomen and pelvis without intravenous contrast, 12/26/2019. Reason for examination: Endometrial cancer. Patient for radiation therapy. COMPARISON: October 27, 2019. TECHNIQUE: Large eejqh-qg-whgs 3 mm axial images were obtained through [...] M Transcribed Date and Time: 12/26/2019 3:50 [place], [place] Real, [facility] Incoming Radiology Results From [facility] - 12/26/2019 3:55 PM EDT Patient Name: GONZALO DELUCA ---CT--- Exam Date/Time 12/26/2019 11:38:[address] Nonbill Guide Rad Therapy Ordering Physician MD WU, BURKE E Accession Number [id number] Reason For Exam Endometriod Ca Report CT of the abdomen and pelvis without intravenous contrast, 12/26/2019. Reason for examination: Endometrial cancer. Patient for radiation therapy. COMPARISON: October 27, 2019. TECHNIQUE: Large elyvi-mc-ajev 3 mm axial images were obtained through [...] M Transcribed Date and Time: 12/26/2019 3:50 [facility], [place] XA SPECIAL ANGIOGRAPHY PROCE [facility] 12-19-2019 Patient Name: GONZALO DELUCA ---Special Procedures--- Exam Date/Time 12/19/2019 14:31:06 EDT Exam XA Special Angiography Procedure Ordering Physician ZIYAD MENENDEZ Accession Number [id number] Reason For Exam Mediport placement Report LEFT [...] MALAY Transcribed Date and Time: 12/19/2019 2:32 [facility], [place] Real, [facility] Incoming Radiology Results From [facility] - 12/19/2019 2:33 PM EDT Patient Name: GONZALO DELUCA ---Special Procedures--- Exam Date/Time 12/19/2019 14:31:06 EDT Exam XA Special Angiography Procedure Ordering Physician ZIYAD MENENDEZ Accession Number [id number] Reason For Exam Mediport placement Report LEFT [...] MALAY Transcribed Date and Time: 12/19/2019 2:32 [facility], [facility] XR CHEST PORTABLEon 12-19-19 Patient Name: GONZALO DELUCA ---Diagnostic Radiology--- Exam Date/Time 12/19/2019 14:50:00 EDT Exam CR Chest Portable Ordering Physician MD GRIFFITH MALAY Accession Number [id number] CPT4 Codes 19842 () Reason For Exam Med Port placement She is in ACS room 12. She can go home after Dr. Griffith ok's the XRay. Please contact him at [phone] when it is available. Thanks Report CLINICAL [...] JEFFREY Transcribed Date and Time: 12/19/2019 3:06 [facility], [place] Real, [facility] 12[facility]/2019 3:06 PM EDT Patient Name: GONZALO DELUCA ---Diagnostic Radiology--- Exam Date/Time 12/19/2019 14:50:00 EDT Exam CR Chest Portable Ordering Physician MD GRIFFITH MALAY Accession Number [id number] CPT4 Codes 77519 () Reason For Exam Med Port placement She is in ACS room 12. She can go home after Dr. Suhail rocha's the XRay. Please contact him at [phone] when it is available. Thanks Report CLINICAL [...] JEFFREY Transcribed Date and Time: 12/19/2019 3:06 [place] Basic Metabolic Panel w/ Ref afmilia to MGon 11-24-2019 Anion gap [Moles/Vol] 4 mmol/L [place], [place] Calcium [Mass/Vol] 8.3 mg/dL Low 8.4 - 10. 4 mg/dL [place] Chloride [Moles/Vol] 102 mmol/L 98 - 10 7 mmol/L [place] CO2 [Moles/Vol] 27 mmol/L 22 - 30 mmol/L [place] Creatinine [Mass/Vol] 0.52 mg/dL 0.52 - 1.25 mg/dL [place] EGFR IF NonAfrican [place]ian >90.0 >60 mL/min [place] Comment on above: KDIGO guidelines pro [...] MDRD (S/P/Bld) [Vol rate/Area] mL/min/{1.73_m2} >60 mL/min [place] Glucose [Mass/Vol] 84 mg/dL 70 - 100 mg/dL [place] Interpretation and review of laboratory results Abnormal [place] Potassium [Moles/Vol] 3.8 mmol/L 3.5 - 5.1 mmol/L [place] Sodium [Moles/Vol] 133 mmol/L Low 135 - 145 mmol/L [place] Urea nitrogen [Mass/Vol] 8 mg/dL 7 - 20 mg/d L [place] Test Performed by [facility], [address] [place], [place] [address] [place], [place] CBC Auto Differentialon 0 Absolute Baso # 0.0 10*3/uL 0 - 0.2 10*3/uL [place] Absolute Neut # 5.9 10*3/uL 1.8 - 7 10*3/uL [place] Basophils/100 WBC (Bld) 0.5 % 0 - 2 % [place] Eosinophils (Bld) [#/Vol] 0.2 10*3/uL 0 - 0.5 10*3/uL [place] Eosinophils/100 WBC (Bld) 2.6 % 1 - 6 % [place] Erythrocyte distribution width (RBC) [Ratio] 13.8 % 11.5 - 14.5 % [place] Granulocytes/100 WBC (Bld) 78.0 % 40 - 80 % [place] Hematocrit (Bld) [Volume fraction] 31.1 % Low 35 - 47 % [place] Hemoglobin (Bld) [Mass/Vol] 10.0 g/dL Low 11.7 - 16 g/dL [place] Interpretation and review of laboratory results Abnormal [place] Lymphocytes (Bld) [#/Vol] 0.9 10*3/uL Low 1 - 4.3 10*3/uL [place] Lymphocytes/100 WBC (Bld) 12.2 % Low 20 - 40 % [place] MCH (RBC) [Entitic mass] 30.5 pg 26 - 34 pg [place] MCHC (RBC) [Mass/Vol] 32.3 % 32 - 36 % [place] MCV (RBC) [Entitic vol] 94.5 fL 79 - 98 fL [place] Monocytes (Bld) [#/Vol] 0.5 10*3/uL 0 - 0.8 10*3/uL [place] Monocytes/100 WBC (Bld) 6.7 % 2 - 10 % [place] Platelet mean volume (Bld) [Entitic vol] 6.7 fL Low 7.4 - 10.4 fL [place] Platelets (Bld) [#/Vol] 378 10*3/uL 140 - 440 10*3/uL [place] RBC (Bld) [#/Vol] 3.29 10*6/uL Low 3.8 - 5.2 10*6/uL [place] WBC (Bld) [#/Vol] 7.6 10*3/uL 3.6 - 10.7 10*3/uL [place] Test Performed by [facility], [address], [place], [place] [address] [place] VL DUP CAROTID BILATERALon 0 11-24-2019 Real, [facility] Cardiology Results From Jess[facility]Anny - 11/24/2019 9:57 AM EDT [facility] ----- Carotid Duplex Report Ordering Physician: Aparna Walter Rate And Cost Analyst: Alexa De León Interpreting Physician: Austyn Dee MD ----- Location: [facility] ----- Indications: Right arm weakness. ----- [...] supine position. Images were obtained using a [employer] E9 vascular ultrasound machine. ----- Findings Carotid/vertebral [...] signed by Austyn Dee MD 11/24/2019 09:57 [facility]- [place], [facility] ----- Carotid Duplex Report Ordering Physician: Aparna Walter Rate And Cost Analyst: Alexa De León Interpreting Physician: Austyn Dee MD ----- Location: [facility] ----- Indications: Right arm weakness. ----- [...] supine position. Images were obtained using a [employer] E9 vascular ultrasound machine. ----- Findings Carotid/vertebral [...] signed by Austyn Dee MD 11/24/2019 09:57 [place] Basic Metabolic Panel w/ Ref familia to MGon 11-23-2019 Anion gap [Moles/Vol] 3 mmol/L [place] Calcium [Mass/Vol] 8.6 mg/dL 8.4 - 10. 4 mg/dL [place] Chloride [Moles/Vol] 101 mmol/L 98 - 10 7 mmol/L [place] CO2 [Moles/Vol] 31 mmol/L High 22 - 30 mmol/L [place] Creatinine [Mass/Vol] 0.55 mg/dL 0.52 - 1.25 mg/dL [place] EGFR IF NonAfrican [place]ian >90.0 >60 mL/min [place] Comment on above: KDIGO guidelines pro [...] MDRD (S/P/Bld) [Vol rate/Area] mL/min/{1.73_m2} >60 mL/min [place] Glucose [Mass/Vol] 87 mg/dL 70 - 100 mg/dL [place] Interpretation and review of laboratory results Abnormal [place] Potassium [Moles/Vol] 4.0 mmol/L 3.5 - 5.1 mmol/L [place] Sodium [Moles/Vol] 136 mmol/L 135 - 145 mmol/L [place] Urea nitrogen [Mass/Vol] 12 mg/dL 7 - 20 mg/d L [place] Test Performed by [facility], [address], [place], [place] [address] [place] CBC Auto Differentialon 09-0 -2019 Absolute Baso # 0.0 10*3/uL 0 - 0.2 10*3/uL [place] Absolute Neut # 5.3 10*3/uL 1.8 - 7 10*3/uL [place] Basophils/100 WBC (Bld) 0.6 % 0 - 2 % [place] Eosinophils (Bld) [#/Vol] 0.3 10*3/uL 0 - 0.5 10*3/uL [place] Eosinophils/100 WBC (Bld) 3.6 % 1 - 6 % [place] Erythrocyte distribution width (RBC) [Ratio] 13.7 % 11.5 - 14.5 % [place] Granulocytes/100 WBC (Bld) 73.0 % 40 - 80 % [place] Hematocrit (Bld) [Volume fraction] 30.5 % Low 35 - 47 % [place] Hemoglobin (Bld) [Mass/Vol] 9.9 g/dL Low 11.7 - 16 g/dL [place] Interpretation and review of laboratory results Abnormal [place] Lymphocytes (Bld) [#/Vol] 1.1 10*3/uL 1 - 4.3 10*3/uL [place] Lymphocytes/100 WBC (Bld) 14.8 % Low 20 - 40 % [place] MCH (RBC) [Entitic mass] 30.5 pg 26 - 34 pg [place] MCHC (RBC) [Mass/Vol] 32.3 % 32 - 36 % [place] MCV (RBC) [Entitic vol] 94.3 fL 79 - 98 fL [place] Monocytes (Bld) [#/Vol] 0.6 10*3/uL 0 - 0.8 10*3/uL [facility] [place] Monocytes/100 WBC (Bld) 8.0 % 2 - 10 % M [facility] [employer] [place], [place] Platelet mean volume (Bld) [Entitic vol] 6.6 fL Low 7.4 - 10.4 fL [facility] [employer] [place] Platelets (Bld) [#/Vol] 366 10*3/uL 140 - 440 10*3/uL [facility] [place], [place] RBC (Bld) [#/Vol] 3.24 10*6/uL Low 3.8 - 5.2 10*6/uL [facility] [employer] [place] WBC (Bld) [#/Vol] 7.3 10*3/uL 3.6 - 10.7 10*3/uL [facility], [place] Test Performed by [facility], [address] [place] [id number] [place], [place] [address], [place] ECHO Complete 2D W Doppler W Coloron 11-23-2019 TRANSTHORACIC ECHOCARDIOGRAM PATIENT: Gonzalo Deluca STUDY DATE: 11/23/2019 : 1955 AGE: 64 HT/WT: 165.1 cm (65 70.8 kg in) (155.7 lb) GENDER: F BP: 124 / 79 LOCATION: [facility] PATIENT [facility] STATUS: *ORDERING PHYSICIAN: * Lauren Serna *RN: * Alea Gomez *READING PHYSICIAN: Haritha Milligan *DELIVERY AND INSTALLATION SUBCONTRACTOR: Haritha Vital MD RDCS, AE ----- INDICATIONS: Right [...] Srini Vital MD 11/23/2019 11:59 Prior Signatures: [facility] [place], [place] [facility] [place] Incoming Cardiology Results From [facility] - 11/23/2019 11:59 AM EDT TRANSTHORACIC ECHOCARDIOGRAM PATIENT: Gonzalo Deluca STUDY DATE: 11/23/2019 : 1955 AGE: 64 HT/WT: 165.1 cm (65 70.8 kg in) (155.7 lb) GENDER: F BP: 124 / 79 LOCATION: [facility] PATIENT Inpatient [facility] STATUS: *ORDERING PHYSICIAN: Lauren Shirley *RN: * Alea Gomez *READING PHYSICIAN: Haritha Milligan *DELIVERY AND INSTALLATION SUBCONTRACTOR: Haritha Vital MD [facility], AE ----- INDICATIONS: Right hand weakness. ----- [...] Srini Vital MD 11/23/2019 11:59 Prior Signatures: [place], [place] CBCon 11-22-2019 Erythrocyte distribution width (RBC) [Ratio] 13.8 % 11.5 - 14.5 % [place], [place] Hematocrit (Bld) [Volume fraction] 29.9 % Low 35 - 47 % [place] Hemoglobin (Bld) [Mass/Vol] 9.6 g/dL Low 11.7 - 16 g/dL [place] Interpretation and review of laboratory results Abnormal [place] MCH (RBC) [Entitic mass] 30.3 pg 26 - 34 pg [place] MCHC (RBC) [Mass/Vol] 31.9 % Low 32 - 36 % [place], [place] MCV (RBC) [Entitic vol] 94.9 fL 79 - 98 fL [place] Platelet mean volume (Bld) [Entitic vol] 7.2 fL Low 7.4 - 10.4 fL [place] Platelets (Bld) [#/Vol] 380 10*3/uL 140 - 440 10*3/uL [place] RBC (Bld) [#/Vol] 3.15 10*6/uL Low 3.8 - 5.2 10*6/uL [place] WBC (Bld) [#/Vol] 8.9 10*3/uL 3.6 - 10.7 10*3/uL [place] Test Performed by [facility], [address] [place] [id number] [place], [place] Comprehensive Metabolic Pane l w/ Reflex to MGon 11-22-2019 Albumin [Mass/Vol] 2.8 g/dL Low 3.5 - 5 g/dL [place], [place] ALP [Catalytic activity/Vol] 77 U/L 38 - 126 U/L [place] ALT [Catalytic activity/Vol] 20 U/L 0 - 34 U/L [place] Comment on above: The ALT test is perf ormed by an updated assay method. Please note that the reference intervals have been changed and are now sex specific. Anion gap [Moles/Vol] 4 mmol/L [place], [place] AST [Catalytic activity/Vol] 52 U/L High 15 - 46 U/L [place] Bilirubin Ql (U) 0.2 mg/dL 0.2 - 1.3 mg/dL [place] Calcium [Mass/Vol] 8.3 mg/dL Low 8.4 - 10. 4 mg/dL [place] Chloride [Moles/Vol] 103 mmol/L 98 - 10 7 mmol/L [place] CO2 [Moles/Vol] 33 mmol/L High 22 - 30 mmol/L [place] Creatinine [Mass/Vol] 0.54 mg/dL 0.52 - 1.25 mg/dL [place] EGFR IF NonAfrican Montserratian >90.0 >60 mL/min [place] Comment on above: KDIGO guidelines pro [...] MDRD (S/P/Bld) [Vol rate/Area] mL/min/{1.73_m2} >60 mL/min [place] Glucose [Mass/Vol] 99 mg/dL 70 - 100 mg/dL [place] Interpretation and review of laboratory results Abnormal [place] Potassium [Moles/Vol] 3.1 mmol/L Low 3.5 - 5.1 mmol/L [place] Protein [Mass/Vol] 5.4 g/dL Low 6.3 - 8.2 g/dL [place] Sodium [Moles/Vol] 140 mmol/L 135 - 145 mmol/L [place] Urea nitrogen [Mass/Vol] 11 mg/dL 7 - 20 mg/d L [place] EKG 12 Lead if not already d one by divya 11-22-2019 [facility] Results From [facility]/[place] - 11/22/2019 12:[address] [facility] Test Date: 2019-11-21 Pat Name: Gonzalo Deluca Department: 01 Room: 454 Gender: F Filament Welder: RACHEL : 1955 Requested By: RAY BARROSO Order Number: [id number] Reading MD: Vicente Brown Measurements Intervals [place] Rate: 89 P: 42 LA: 152 QRS: -20 QRSD: 100 T: 18 QT: 376 QTc: 458 Interpretive Statements SINUS RHYTHM Compared to ECG 08/02/2019 18:19:40 Ventricular premature complex(es) no longer present Electronically Signed On 11-22-2019 12:01:36 EDT by Vicente Brown [facility] [employer] [facility] Test Date: 2019-11-21 Pat Name: Gonzalo Deluca Department: 01 Room: 454 Gender: F Filament Welder: RACHEL : 1955 Requested By: RAY BARROSO Order Number: [id number] Reading : Vicente Brown Measurements Intervals [place] Rate: 89 P: 42 LA: 152 QRS: -20 QRSD: 100 T: 18 QT: 376 QTc: 458 Interpretive Statements SINUS RHYTHM Compared to ECG 08/02/2019 18:19:40 Ventricular premature complex(es) no longer present Electronically Signed On 11-22-2019 12:01:36 EDT by Vicente Brown [place], [place] Hemoglobin A1con 11-22-2019 eAG 100 mg/dL [place] HbA1c (Bld) [Mass fraction] 5.1 % 4 - 6 % [place] Comment on above: --HgbA1C levels may not be accurate in patients who have renal disease, received recent blood transfusions, are anemic, or who have dyshemoglobinemia. Test Performed by [facility] [employer] [facility], [address] [place], [address] Lipid panel - fastingon Cholesterol [Mass/Vol] 132 mg/dL <200 [place], [place] Cholesterol in HDL [Mass/Vol] 41 mg/dL 40 - 60 mg/dL [place] Cholesterol in LDL [Mass/Vol] 68 mg/dL <100 [place] Cholesterol.total/Choles terol in HDL [Mass ratio] 3 {ratio} [place] Comment on above: Ref Range: < 3 Low Risk for CHD 3-6 Mod Risk for CHD > 6 High Risk for CHD Triglyceride [Mass/Vol] 116 mg/dL <150 [place] Magnesiumon 11-22-2019 Magnesium [Mass/Vol] 1.9 mg/dL 1.6 - 2 .3 mg/dL [place] Test Performed by [facility] [employer], [address] [place], [address] Otheron 11-22-2019 Test Performed by [facility], [address] [place], [address] VL LOWER EXTREMITY VENOUS RI GHT [id number] 11-22-2019 [facility] ----- Right Lower Extremity Venous Duplex Report Ordering Physician: Lauren Serna Rate And Cost Analyst: Eh Rojas Interpreting Physician: Josef Cochran ----- Location: [facility] ----- Indications: Right sided swelling. ----- [...] supine position. Images were obtained using a [employer] E9 vascular ultrasound machine. ----- Venous flow [...] electronically signed by Josef Cochran 11/22/2019 14:37 [place], [place] [facility] Incoming Cardiology Results From Jessika/Anny - 11/22/2019 2:37 PM EDT [facility] ----- Right Lower Extremity Venous Duplex Report Ordering Physician: Lauren Serna Rate And Cost Analyst: hE Rojas Interpreting Physician: Josef Cochran ----- Location: [facility] ----- Indications: Right sided swelling. ----- [...] supine position. Images were obtained using a [employer] E9 vascular ultrasound machine. ----- Venous flow [...] electronically signed by Josef Cochran 11/22/2019 14:37 [place] APTTon 11-21-2019 aPTT Coag (Bld) [Time] 23.6 s 20 - 30.5 s [place], [place] Comment on above: NOTE: The therapeuti c time for Heparin anticoagulation, based on Xa activity inhibition, is an APTT of 46-80 seconds. CBC Auto Differentialon Absolute Baso # 0.1 10*3/uL 0 - 0.2 10*3/uL [place] Absolute Neut # 4.8 10*3/uL 1.8 - 7 10*3/uL [place] Basophils/100 WBC (Bld) 0.7 % 0 - 2 % [place] Eosinophils (Bld) [#/Vol] 0.3 10*3/uL 0 - 0.5 10*3/uL [place] Eosinophils/100 WBC (Bld) 3.7 % 1 - 6 % [place] Erythrocyte distribution width (RBC) [Ratio] 14.0 % 11.5 - 14.5 % [place] Granulocytes/100 WBC (Bld) 71.5 % 40 - 80 % [place] Hematocrit (Bld) [Volume fraction] 34.5 % Low 35 - 47 % [place] Hemoglobin (Bld) [Mass/Vol] 11.0 g/dL Low 11.7 - 16 g/dL [place] Interpretation and review of laboratory results Abnormal [place] Lymphocytes (Bld) [#/Vol] 1.1 10*3/uL 1 - 4.3 10*3/uL [place] Lymphocytes/100 WBC (Bld) 16.9 % Low 20 - 40 % [place] MCH (RBC) [Entitic mass] 30.4 pg 26 - 34 pg [place] MCHC (RBC) [Mass/Vol] 32.0 % 32 - 36 % [place] MCV (RBC) [Entitic vol] 95.1 fL 79 - 98 fL [place], [place] Monocytes (Bld) [#/Vol] 0.5 10*3/uL 0 - 0.8 10*3/uL [place] Monocytes/100 WBC (Bld) 7.2 % 2 - 10 % [place] Platelet mean volume (Bld) [Entitic vol] 6.7 fL Low 7.4 - 10.4 fL [place] Platelets (Bld) [#/Vol] 438 10*3/uL 140 - 440 10*3/uL [place] RBC (Bld) [#/Vol] 3.63 10*6/uL Low 3.8 - 5.2 10*6/uL [place] WBC (Bld) [#/Vol] 6.8 10*3/uL 3.6 - 10.7 10*3/uL [place] Test Performed by [facility], [address] [place], [place], [place] [address] [place] HEAD WO CONTRASTon 2019 Patient Name: GONZALO DELUCA ---CT--- Exam Date/Time 11/21/2019 16:56:[address] Head or Brain w/o Contrast Ordering Physician RAY ALLEN Accession Number [id number] CPT4 Codes 61751 () Reason For Exam right arm weakness [...] WENDELL Transcribed Date and Time: 11/21/2019 5:09 [place] Real, [facility] Incoming Radiology Results From [facility] - 11/21/2019 5:09 PM EDT Patient Name: GONZALO DELUCA ---CT--- Exam Date/Time 11/21/2019 16:56:[address] Head or Brain w/o Contrast Ordering Physician [id number] -RIK BARROSOS Accession Number [id number] CPT4 Codes 37604 () Reason For Exam right arm weakness [...] WENDELL Transcribed Date and Time: 11/21/2019 5:09 [place] Comprehensive Metabolic Pane l w/ Reflex to MGon 11-21-2019 Albumin [Mass/Vol] 3.3 g/dL Low 3.5 - 5 g/dL [place] ALP [Catalytic activity/Vol] 96 U/L 38 - 126 U/L [place] ALT [Catalytic activity/Vol] 23 U/L 0 - 34 U/L [place] Comment on above: The ALT test is perf ormed by an updated assay method. Please note that the reference intervals have been changed and are now sex specific. Anion gap [Moles/Vol] 4 mmol/L [place] AST [Catalytic activity/Vol] 37 U/L 15 - 46 U/L [place] Bilirubin Ql (U) 0.1 mg/dL Low 0.2 - 1.3 mg/dL [place] Calcium [Mass/Vol] 9.1 mg/dL 8.4 - 10. 4 mg/dL [place] Chloride [Moles/Vol] 100 mmol/L 98 - 10 7 mmol/L [place] CO2 [Moles/Vol] 37 mmol/L High 22 - 30 mmol/L [place] Creatinine [Mass/Vol] 0.66 mg/dL 0.52 - 1.25 mg/dL [place] EGFR IF NonAfrican [place]err[place]ian >90.0 >60 mL/min [place] Comment on above: KDIGO guidelines pro [...] MDRD (S/P/Bld) [Vol rate/Area] mL/min/{1.73_m2} >60 mL/min [place] Glucose [Mass/Vol] 93 mg/dL 70 - 100 mg/dL [place] Interpretation and review of laboratory results Abnormal [place] Potassium [Moles/Vol] 3.4 mmol/L Low 3.5 - 5.1 mmol/L [place] Protein [Mass/Vol] 6.3 g/dL 6.3 - 8.2 g/dL [place] Sodium [Moles/Vol] 141 mmol/L 135 - 145 mmol/L [place] Urea nitrogen [Mass/Vol] 12 mg/dL 7 - 20 mg/d L [place] Test Performed by [employer] [facility], [address] [place], [place], [place] [id number] [place] [address] Magnesiumon 11-21-2019 Magnesium [Mass/Vol] 2.0 mg/dL 1.6 - 2 .3 mg/dL [place] Test Performed by [facility], [address], [address] Otheron 11-21-2019 Test Performed by [facility], [address] JANNY, [address] POCT Glucoseon 11-21-2019 Glucose [Mass/Vol] 94 mg/dL 70 - 100 mg/dL [place] Comment on above: Test performed by [employer] ucose meter. Results may be 10%-15% lower than serum/plasma values. (CLIA ID [id number]) Test Performed by [facility], [address] JAN[place], [address] Protime-INRon 11-21-2019 INR Coag (PPP) [Relative time] 1.0 {INR} [place] Comment on above: Recommended Anticoag ulant [...] [Time] 10.1 s 9 - 12 s [place] Comment on above: . Troponinon 11-21-2019 Troponin I.cardiac [Mass/Vol] ng/mL 0 - 0.034 ng/mL [place] Comment on above: . Test Performed by [facility], [address] JAN[place] [address] [id number] 11-13-2019 SARS-CoV-2 SARS-CoV-2 --> Statu s: F Not Detected Expected Result: Not Detected _ Real-time, RT-PCR performed on the [employer] System by the [facility]. Negative results do not preclude SARS-CoV-2 infection and should not be used as the sole basis for treatment or other patient management decisions. This assay was developed by [employer] and distributed under an Emergency Use Authorization (EUA) granted by the FDA for the qualitative detection of SARS-CoV-2 nucleic acid. Results were determined from a pool consisting of specimens from additional patients. This test was modified, and its performance characteristics, showing minimal loss of sensitivity, have been validated by the [facility]. Approval is pending review by the U. S. Food and Drug Administration. If symptoms are severe and persist, testing a new specimen may be warranted. Additionally, IgG testing may be considered for patients more than 7-10 days post onset of symptoms. Expected Result: Not Detected _ Real-time, RT-PCR performed on the [employer] System by the [facility]. Negative results do not preclude SARS-CoV-2 infection and should not be used as the sole basis for treatment or other patient management decisions. This assay was developed by [employer] and distributed under an Emergency Use Authorization (EUA) granted by the FDA for the qualitative detection of SARS-CoV-2 nucleic acid. Results were determined from a pool consisting of specimens from additional patients. This test was modified, and its performance characteristics, showing minimal loss of sensitivity, have been validated by the [facility]. Approval is pending review by the U. S. Food and Drug Administration. If symptoms are severe and persist, testing a new specimen may be warranted. Additionally, IgG testing may be considered for patients more than 7-10 days post onset of symptoms. Normal [facility] Comment on above: Order Comment: Speci men Source Comment:Nasopharyngeal Swab Performed By: #### C OVID ####[facility] [place], [place] Basic Metabolic Panelon 08-2 Calcium [Mass/Vol] 9.2 mg/dL Normal 8.4-10.[address] [facility] Comment on above: Performed By: #### B MP3, HEMDF #### [facility] [address] [place], [place] Glucose [Mass/Vol] 120 mg/dL High 70-[address] [facility] Comment on above: Performed By: #### B MP3, HEMDF #### [facility] [address] [place], [place] Urea nitrogen [Mass/Vol] 9 mg/dL Normal 7-[address] [facility] Comment on above: Performed By: #### B MP3, HEMDF #### [facility] [address] [place], [place] Anion gap [Moles/Vol] 7 Normal [facility] Comment on above: Performed By: #### B MP3, HEMDF #### [facility] [address] [place], [place] CO2 [Moles/Vol] 31 mmol/L High 22-30 [facility] Comment on above: Performed By: #### B MP3, HEMDF #### [facility] [address] [place], [place] Creatinine [Mass/Vol] 0.49 mg/dL Low 0.52-1.25 [facility] Comment on above: Performed By: #### B MP3, HEMDF #### [facility] [address] [place], [place] GFR/1.73 sq M predicted among blacks MDRD (S/P/Bld) [Vol rate/Area] mL/min/{1.73_m2} Normal >[address] [facility] Comment on above: Performed By: #### B MP3, HEMDF #### [facility] [address] [place], [place] GFR/1.73 sq M predicted among non-blacks MDRD (S/P/Bld) [Vol rate/Area] mL/min/{1.73_m2} Normal >[address] [facility] Comment on above: Result Comment: KDIG [...] Performed By: #### B MP3, HEMDF #### [facility] [address] [place] [address] Potassium [Moles/Vol] 2.9 mmol/L Low 3.5-5.1 [facility] Comment on above: Performed By: #### B MP3, HEMDF #### [facility] [address] [place] [address] Chloride [Moles/Vol] 103 mmol/L Normal 98-107 [facility] Comment on above: Performed By: #### B MP3, HEMDF #### [facility] [address] [place] [address] Sodium [Moles/Vol] 140 mmol/L Normal 135-[address] [facility] Comment on above: Performed By: #### B MP3, HEMDF #### [facility] [address] [place] [address] CR Chest Portableon 11-12-19 20 CR Chest Portable Patient Name: GONZALO DELUCA Diagnostic Radiology Exam Date/Time 11/12/2019 20:13:01 EDT Exam CR Chest Portable Ordering Physician NADEEM CASEY JENNIFER L. Accession Number [id number] CPT4 Codes 09668 () Reason For Exam cough and fever [...] Transcribed Date and Time: 11/12/2019 8:[address] [facility] Hemogram w/ Autodiffon 11-11 Abs Baso Cnt 0.1 10*3/uL Normal 0.0-0.2 [facility] Comment on above: Performed By: #### B MP3, HEMDF #### [facility] [address] [place], [place] Abs Neutrophile Cnt 12.0 10*3/uL High 1.8-7.0 [facility] Comment on above: Performed By: #### B MP3, HEMDF #### [facility] [address] [place], [place] Basophils/100 WBC (Bld) 0.4 % Normal 0.0-2.0 [facility] Comment on above: Performed By: #### B MP3, HEMDF #### [place] [address] [address] [place], [place] Eosinophils (Bld) [#/Vol] 0.2 10*3/uL Normal 0.0-0.[address] [facility] Comment on above: Performed By: #### B MP3, HEMDF #### [facility] [address] [place], [place] Eosinophils/100 WBC (Bld) 1.6 % Normal 1.0-6.[address] [facility] Comment on above: Performed By: #### B MP3, HEMDF #### [facility] [address] [place], [place] Erythrocyte distribution width (RBC) [Ratio] 14.2 % Normal 11.5-14.[address] [facility] Comment on above: Performed By: #### B MP3, HEMDF #### [facility] [address] [place], [place] Granulocytes/100 WBC (Bld) 81.3 % High 40.0-80.[address] [facility] Comment on above: Performed By: #### B MP3, HEMDF #### [facility] [address] [place], [place] Hematocrit (Bld) [Volume fraction] 38.0 % Normal 35.0-47.[address] [facility] Comment on above: Performed By: #### B MP3, HEMDF #### [place] [address] [address] [place], [place] Hemoglobin (Bld) [Mass/Vol] 12.9 g/dL Normal 11.7-16.[address] [facility] Comment on above: Performed By: #### B MP3, HEMDF #### [place] [address] [address] [place], [place] Lymphocytes (Bld) [#/Vol] 1.4 10*3/uL Normal 1.0-4.[address] [facility] Comment on above: Performed By: #### B MP3, HEMDF #### [place] [address] [place], [place] Lymphocytes/100 WBC (Bld) 9.3 % Low 20.0-40.[address] [facility] Comment on above: Performed By: #### B MP3, HEMDF #### [place] [address] [address] [place], [place] MCH (RBC) [Entitic mass] 32.0 pg Normal 26.0-34.[address] [facility] Comment on above: Performed By: #### B MP3, HEMDF #### [place] [address] [address] [place], [place] MCHC (RBC) [Mass/Vol] 34.0 % Normal 32.0-36.0 [facility] Comment on above: Performed By: #### B MP3, HEMDF #### [place] [address] [address] [place], [place] MCV (RBC) [Entitic vol] 94.1 fL Normal 79.0-98.0 [facility] Comment on above: Performed By: #### B MP3, HEMDF #### [place] [address] [place], [place] Monocytes (Bld) [#/Vol] 1.1 10*3/uL High 0.0-0.[address] [facility] Comment on above: Performed By: #### B MP3, HEMDF #### [place] [address] [address] [place], [place] Monocytes/100 WBC (Bld) 7.4 % Normal 2.0-10.0 [facility] Comment on above: Performed By: #### B MP3, HEMDF #### [facility] [address] [place], [place] Platelet mean volume (Bld) [Entitic vol] 6.8 fL Low 7.4-10.[address] [facility] Comment on above: Performed By: #### B MP3, HEMDF #### [facility] [address] [place], [place] Platelets (Bld) [#/Vol] 526 10*3/uL High 140-[address] [facility] Comment on above: Performed By: #### B MP3, HEMDF #### [facility] [address] [place], [place] RBC (Bld) [#/Vol] 4.03 10*6/uL Normal 3.80-5.[address] [facility] Comment on above: Performed By: #### B MP3, HEMDF #### [facility] [address] [place], [place] WBC (Bld) [#/Vol] 14.8 10*3/uL High 3.6-10.[address] [facility] Comment on above: Performed By: #### B MP3, HEMDF #### [facility] [address] [place], [place] VL Venous Duplex US Lower Ex t Righton 11-10-2019 VL Venous Duplex US Lower Ext Right Patient Name: GONZALO DELUCA Ultrasound Exam Date/Time 11/10/2019 18:25:00 EDT Exam VL Venous Duplex US Lower Ext Right Ordering Physician TANI RADFORD Accession Number [id number] CPT4 Codes 95334 () Reason For Exam Other specified soft tissue disorders Report [facility] ----- Right Lower Extremity Venous Duplex Report Ordering Physician: Tani Joseph Rate And Cost Analyst: Luda Alonso Interpreting Physician: Ramses Mcgrath MD ----- Location: [facility] Emergency Dept at [place] ----- Indications: Leg swelling. Pt s/p hysterectomy [...] supine position. Images were obtained using a [employer] i700 Aplio vascular ultrasound machine. ----- Venous [...] 11/12/2019 8:11 am Signed by: RAMSES MCGRATH [facility] Op Noteon 11-06-2019 Op Note PATIENT: MAHAMED DELUCA ADMISSION DATE: 11/06/2019 SURGERY DATE: 11/06/2019 DATE OF : 1955 AGE: 63 ADMITTING PHYSICIAN: Ziyad Menendez MD ATTENDING PHYSICIAN: Ziyad Menendez MD DICTATING PHYSICIAN: Ziyad Menendez MD OPERATIVE RECORD Procedure: ABDOMINAL RADICAL HYSTERECTOMY WITH BSO AND PELVIC LYMPH NODE DISSECTION. Preoperative Diagnosis: Cervical cancer stage IB2. Postoperative Diagnosis: Cervical cancer stage IB2. Anesthesia: General. Paint Spray Tender : Dr. Beth. Description of Findings: No [...] cuff was closed using interrupted 0 Vicryl [id number]-[id number]. The abdomen and pelvis was then copiously [...] EBL about 250 cc. Diskriter Job ID: [id number] Ziyad Menendez MD DOD:11/06/2019 10:13 A /geraldine DOT:11/06/2019 10:45 A Job Number: [id number] Document Number: [id number] cc: Ziyad Menendez MD [address] [facility] [id number] Angle Case MD [id number] [place] [address] Surgical Pathologyon 020 Surgical Pathology [id number] [facility] PATHOLOGY AND LABORATORY MEDICINE [address] [place], [place] [id number] FINAL SURGICAL PATHOLOGY REPORT NAME: GONZALO DELUCA [place] N [id number] : 1955 63 Y F BILLING NO.: [id number] LOCATION: [address] [place] [address] PROCEDURE 11/06/2019 DATE: SURGEON: ZIYAD MENENDEZ MD [...] (pN): pN1 FIGO STAGE FIGO Stage: IIIC1 BIAS BINDING FOLDER TUMOR BLOCK(S): A2, A3 HCK/HCK Signature> ANSLEY CHAUDHARY M.D. 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 Radical hysterectomy, bilateral tubes and ovaries Received in formalin is a radical hysterectomy [...] No papillations or excrescences are identified. Multiple instruments sales representative sections are submitted. The left [...] masses or lesions are grossly identified. Multiple instruments sales representative sections are submitted. Cassette Summary: 1 - 4 is ectocervix with vaginal cuff margin from 6 o'clock to 9 o'clock, entirely submitted; 5 is instruments sales representative 9 o'clock to 12 o'clock; 6 - 8 is 3 o'clock to 6 o'clock, entirely submitted; 9 is instruments sales representative 12 o'clock to 3 o'clock; [...] lower uterine segment; 20 and 21 is instruments sales representative right parametrium; 22 is instruments sales representative left parametrium; 23 is left ovary; 24 is right ovary; 25 is left fallopian tube; 26 right fallopian tube. B. Left pelvic lymph node Received in formalin are multiple fragments of [...] remainder of tissue from the specimen. C. Right pelvic lymph node Received in formalin are multiple small fragments [...] from the specimen is submitted into 13. S/[facility] Disclaimer: The following statement applies to all immunohistochemistry, in situ hybridization, molecular studies, and immunofluorescence testing. The use of one or more reagents in the above tests is regulated as an analyte specific reagent (ASR). These tests were developed and their performance characteristics determined by the clinical laboratories of [facility]. They have not been cleared by [...] negativity on decalcified specimens. Professional Performing Location: [facility] [address] [place] [address]. DEPARTMENT OF PATHOLOGY AND LABORATORY MEDICINE [place], [place] [address] [facility] TS GELon 11-05-2019 TS GEL ABO Group: A Rh, Gel: POS Antibody Screen Gel: NEG Normal [facility] Comment on above: Performed By: #### T SGL ####[place] [address] [place], [place] [address] TYPE AND SCREENon 11-05-2019 Sodium [Moles/Vol] A [facility] [place], [place] Sodium [Moles/Vol] Positive [facility] [place], [place] Sodium [Moles/Vol] Negative [facility] [place] Test Performed by [facility], [address] [place] [address] [facility] [place], [place] CNPNon 10-31-2019 CNPN Telephone (MOLEFV) GONZALO DELUCA ([id number]) 1955 F Date Time Provider Department 10/31/19 AMELIE SOUSA (TECH) JOSE LUISFV During your visit today, we recorded the [...] Encounter Status:Closed by AMELIE ZAYAS on 10/31/19 [facility] PROGRESSon 10-31-2019 PROGRESS HNO ID: [id number] Author: Ankit Cook Service: ? Author Type: [...] stains were performed and evaluated at the [facility] using block B1. 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 ?P53 shows wild type expression. ?ER shows moderate expression in 30% of tumor cells. ?LA is negative. ?An RNA in situ hybridization [...] days 11/06/19 radical ARIANA-BSO-LND (Dr Ziyad Menendez, [facility]) 11/09/19 ED Visit (OSH) MRI not [...] yo T1b1 N1a SCC cervix Staged at [facility] 11/06/2019 Hx COPD, 3L suppl O2 at home Possible TIA 07/2019 CAD abd stress 2017; possible NSTEMI 2017 (per pt) Mother berast CA Sister breast CA Maral jacobs 10/21/[address] notable for old T5 compressions fx PLAN: MRI and PET CT completed at [facility] S/p staging surgery w Dr. Menendez 11/06/201904/01 Pelvic nodes positive, Ao nodes not sampled 10mm stromal invasion Planned for adjuvant chemoRT at [facility] Ankit Cook MD 5min spent counseling the pateint by telephone Normal [facility] Basic Metabolic Panelon 08-0 Anion gap [Moles/Vol] 6 mmol/L [place], [place] Calcium [Mass/Vol] 9.7 mg/dL 8.4 - 10. 4 mg/dL [place] Chloride [Moles/Vol] 102 mmol/L 98 - 10 7 mmol/L [place] CO2 [Moles/Vol] 32 mmol/L High 22 - 30 mmol/L [place] Creatinine [Mass/Vol] 0.57 mg/dL 0.52 - 1.25 mg/dL [place] EGFR IF NonAfrican [place]serratian >90.0 >60 mL/min [place] Comment on above: KDIGO guidelines pro [...] MDRD (S/P/Bld) [Vol rate/Area] mL/min/{1.73_m2} >60 mL/min [place] Glucose [Mass/Vol] 111 mg/dL High 70 - 100 mg/dL [place] Potassium [Moles/Vol] 4.1 mmol/L 3.5 - 5.1 mmol/L [place] Sodium [Moles/Vol] 140 mmol/L 135 - 145 mmol/L [place] Urea nitrogen [Mass/Vol] 20 mg/dL 7 - 20 mg/d L [place] ABDOMEN PELVIS W CONTRAST on 10-27-2019 [facility] 5:10 PM EDT Patient Name: GONZALO DELUCA ---CT--- Exam Date/Time 10/27/2019 16:53:[address] Abdomen/Pelvis w/ IV Contrast (IV Onl Ordering Physician MD JAMIE, ANKIT French Accession Number [id number] CPT4 Codes 28472 (CT Abdomen/Pelvis w/ IV Contrast (IV Onl), Q9967 (CT ISOVUE 370MG/ML&[id number]&M L&1) Reason For Exam RUQ/RIGHT flank pain, [...] R Transcribed Date and Time: 10/27/2019 5:09 [place] Patient Name: GONZALO DELUCA ---CT--- Exam Date/Time 10/27/2019 16:53:[address] Abdomen/Pelvis w/ IV Contrast (IV Onl Ordering Physician MD JAMIE, ANKIT French Accession Number [id number] CPT4 Codes 17944 (CT Abdomen/Pelvis w/ IV Contrast (IV Onl), Q9967 (CT ISOVUE 370MG/ML&[id number]&M L&1) Reason For Exam RUQ/RIGHT flank pain, [...] R Transcribed Date and Time: 10/27/2019 5:09 [place] Hemogram (CBC) w/Auto Diffon 10-27-2019 Absolute Baso # 0.1 10*3/uL 0 - 0.2 10*3/uL [place] Absolute Neut # 9.8 10*3/uL High 1.8 - 7 10*3/uL [place] Basophils/100 WBC (Bld) 0.4 % 0 - 2 % [place] Eosinophils (Bld) [#/Vol] 0.5 10*3/uL 0 - 0.5 10*3/uL [place] Eosinophils/100 WBC (Bld) 4.0 % 1 - 6 % [place] Erythrocyte distribution width (RBC) [Ratio] 14.4 % 11.5 - 14.5 % [place] Granulocytes/100 WBC (Bld) 76.6 % 40 - 80 % [place] Hematocrit (Bld) [Volume fraction] 41.9 % 35 - 47 % [place] Hemoglobin (Bld) [Mass/Vol] 13.7 g/dL 11.7 - 16 g/dL [place] Lymphocytes (Bld) [#/Vol] 1.5 10*3/uL 1 - 4.3 10*3/uL [place] Lymphocytes/100 WBC (Bld) 12.1 % Low 20 - 40 % [place] MCH (RBC) [Entitic mass] 30.3 pg 26 - 34 pg [place] MCHC (RBC) [Mass/Vol] 32.6 % 32 - 36 % [place] MCV (RBC) [Entitic vol] 93.1 fL 79 - 98 fL [place], [place] Monocytes (Bld) [#/Vol] 0.9 10*3/uL High 0 - 0.8 10*3/uL [place], [place] Monocytes/100 WBC (Bld) 6.9 % 2 - 10 % [place] Platelet mean volume (Bld) [Entitic vol] 7.1 fL Low 7.4 - 10.4 fL [place] Platelets (Bld) [#/Vol] 413 10*3/uL 140 - 440 10*3/uL [place] RBC (Bld) [#/Vol] 4.50 10*6/uL 3.8 - 5.2 10*6/uL [place] WBC (Bld) [#/Vol] 12.8 10*3/uL High 3.6 - 10.7 10*3/uL [place] Hepatic Function Panelon Albumin [Mass/Vol] 4.2 g/dL 3.5 - 5 g/dL [place] ALP [Catalytic activity/Vol] 116 U/L 38 - 126 U/L [place] ALT [Catalytic activity/Vol] 42 U/L High 0 - 34 U/L [place] Comment on above: The ALT test is perf ormed by an updated assay method. Please note that the reference intervals have been changed and are now sex specific. AST [Catalytic activity/Vol] 47 U/L High 15 - 46 U/L [place] Bilirubin Ql (U) 0.4 mg/dL 0.2 - 1.3 mg/dL [place] Bilirubin.direct [Mass/Vol] 0.0 mg/dL 0 - 0.3 mg/dL [place] Protein [Mass/Vol] 7.5 g/dL 6.3 - 8.2 g/dL [place] Lipaseon 10-27-2019 Lipase [Catalytic activity/Vol] 72 U/L 23 - 300 U/L [place], [place] Otheron 10-27-2019 Interpretation and review of laboratory results Abnormal [place] Test Performed by [facility], [address] [place], [place] [id number] [place] [address] CT LUMBAR SPINE WO CONTRASTo n 10-21-2019 Patient Name: GONZALO DELUCA ---CT--- Exam Date/Time 10/21/2019 21:54:[address] Spine Lumbar w/o Contrast Ordering Physician DO OTTO DAVID J Accession Number [id number] CPT4 Codes 97218 () Reason For Exam Acute onset T [...] WENDELL Transcribed Date and Time: 10/21/2019 10:26 [facility] [place] [facility] Incoming Radiology Results From [facility] - 10/21/2019 10:26 PM EDT Patient Name: GONZALO DELUCA ---CT--- Exam Date/Time 10/21/2019 21:54:[address] Spine Lumbar w/o Contrast Ordering Physician DO OTTO DAVID J Accession Number [id number] CPT4 Codes 90348 () Reason For Exam Acute onset T [...] WENDELL Transcribed Date and Time: 10/21/2019 10:26 [place] THORACIC SPINE WO CONTRRADHA Coleman 10-21-2019 Patient Name: GONZALO DELUCA ---CT--- Exam Date/Time 10/21/2019 20:45:[address] Spine Thoracic w/o Contrast Ordering Physician DO OTTO DAVID J Accession Number [id number] CPT4 Codes 82992 () Reason For Exam Acute onset T [...] WENDELL Transcribed Date and Time: 10/21/2019 10:26 [facility], [place] Real, [facility] Incoming Radiology Results From [facility] - 10/21/2019 10:26 PM EDT Patient Name: GONZALO DELUCA ---CT--- Exam Date/Time 10/21/2019 20:45:[address] Spine Thoracic w/o Contrast Ordering Physician DO OTTO DAVID J Accession Number [id number] CPT4 Codes 26130 () Reason For Exam Acute onset T [...] WENDELL Transcribed Date and Time: 10/21/2019 10:26 [place] PROGRESSon 10-19-2019 PROGRESS HNO ID: [id number] Author: Ankit Cook Service: ? Author Type: Physician Type: Progress Notes Filed: 10/23/2019 3:58 PM Note Text: TELEVISIT PROGRESS NOTE This is a telephone encounter initiated for an established patient, parent or guardian not leading to an Evaluation AND Management service or procedure within the next 24 hours or soonest available appointment. Patient name and birthday verified: Yes Location of patient: [place] Persons Present: patient PROBLEM: Presents for results [...] stains were performed and evaluated at the [facility] using block B1. 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 ?P53 shows wild type expression. ?ER shows moderate expression in 30% of tumor cells. ?LA is negative. ?An RNA in situ hybridization [...] 9min spent counseling the patient by telephone. [facility] ALLIED [facility] 09-27-2019 ALLIED HEALTH HNO ID: [id number] Author: ALIYA Choi (Ct) Service: Radiology Author Type: Clinical Filament Welder Type: Allied Health Filed: 09/27/2019 9:15 AM [...] ALIYA Choi September 27, 2019 9:14 AM [facility] US FEMALE PELVIS TRANSABD LT Don 09-27-2019 US FEMALE PELVIS TRANSABD LTD * * *Final Report* * * DATE OF EXAM: Sep 27 2019 8:58AM MARCO 1059 - US FEMALE PELVIS TRANSABD LTD / PROCEDURE REASON: N95.8-[id number]-[id number] bleeding * * * * Physician Interpretation [...] uterine segment. Pelvic MRI may be helpful. Real Estate Branch Manager: ANGEL Transcribe Date/Time: Sep 27 2019 5:07P Dictated by : SAAD ESQUIVEL MD This examination was interpreted and the report reviewed and electronically signed by: SAAD ESQUIVEL MD on Sep 27 2019 5:14PM EST [id number] [facility] FEMALE PELVIS TRANSVAGon 09-27-2019 US FEMALE PELVIS TRANSVAG * * *Final Report* * * DATE OF EXAM: Sep 27 2019 8:58AM U 1060 - US FEMALE PELVIS TRANSVAG / PROCEDURE REASON: N95.1-Rulw-ikrxftwpzd bleeding * * * * Physician Interpretation [...] uterine segment. Pelvic MRI may be helpful. Real Estate Branch Manager: ANGEL Transcribe Date/Time: Sep 27 2019 5:07P Dictated by : SAAD ESQUIVEL MD This examination was interpreted and the report reviewed and electronically signed by: SAAD ESQUIVEL MD on Sep 27 2019 5:14PM EST [id number] Normal [facility] Basic Metabolic Panelon 05- Anion gap [Moles/Vol] 8 mmol/L [place] Calcium [Mass/Vol] 8.7 mg/dL 8.4 - 10. 4 mg/dL [place] Chloride [Moles/Vol] 105 mmol/L 98 - 10 7 mmol/L [place] CO2 [Moles/Vol] 26 mmol/L 22 - 30 mmol/L [place] Creatinine [Mass/Vol] 0.5 mg/dL Low 0.52 - 1.25 mg/dL [place] EGFR IF NonAfrican [place]ian >90.0 >60 mL/min [place] Comment on above: KDIGO guidelines pro [...] MDRD (S/P/Bld) [Vol rate/Area] mL/min/{1.73_m2} >60 mL/min [place] Glucose [Mass/Vol] 145 mg/dL High 70 - 100 mg/dL [place] Interpretation and review of laboratory results Abnormal [place] Potassium [Moles/Vol] 4.0 mmol/L 3.5 - 5.1 mmol/L [place] Sodium [Moles/Vol] 139 mmol/L 135 - 145 mmol/L [place] Urea nitrogen [Mass/Vol] 17 mg/dL 7 - 20 mg/d L [place] Test Performed by [facility], [address], [place] [id number] [place] [address] CBC Auto Differentialon 05-1 Absolute Baso # 0.0 10*3/uL 0 - 0.2 10*3/uL [place] Absolute Neut # 13.6 10*3/uL High 1.8 - 7 10*3/uL [place] Basophils/100 WBC (Bld) 0.2 % 0 - 2 % [place] Eosinophils (Bld) [#/Vol] 0.0 10*3/uL 0 - 0.5 10*3/uL [place] Eosinophils/100 WBC (Bld) 0.0 % Low 1 - 6 % [place] Erythrocyte distribution width (RBC) [Ratio] 13.8 % 11.5 - 14.5 % [place] Granulocytes/100 WBC (Bld) 92.2 % High 40 - 80 % [place] Hematocrit (Bld) [Volume fraction] 33.9 % Low 35 - 47 % [place] Hemoglobin (Bld) [Mass/Vol] 11.1 g/dL Low 11.7 - 16 g/dL [place] Interpretation and review of laboratory results Abnormal [place] Lymphocytes (Bld) [#/Vol] 0.6 10*3/uL Low 1 - 4.3 10*3/uL [place] Lymphocytes/100 WBC (Bld) 3.9 % Low 20 - 40 % [place] MCH (RBC) [Entitic mass] 31.0 pg 26 - 34 pg [place] MCHC (RBC) [Mass/Vol] 32.8 % 32 - 36 % [place] MCV (RBC) [Entitic vol] 94.6 fL 79 - 98 fL [place], [place] Monocytes (Bld) [#/Vol] 0.5 10*3/uL 0 - 0.8 10*3/uL [place], [place] Monocytes/100 WBC (Bld) 3.7 % 2 - 10 % [place] Platelet mean volume (Bld) [Entitic vol] 7.5 fL 7.4 - 10.4 fL [place] Platelets (Bld) [#/Vol] 208 10*3/uL 140 - 440 10*3/uL [place] RBC (Bld) [#/Vol] 3.58 10*6/uL Low 3.8 - 5.2 10*6/uL [place] WBC (Bld) [#/Vol] 14.7 10*3/uL High 3.6 - 10.7 10*3/uL [place] Test Performed by [facility], [address], [place], [place] [id number] [place] [address] Basic Metabolic Panelon 05-1 Anion gap [Moles/Vol] 8 mmol/L [place] Calcium [Mass/Vol] 8.2 mg/dL Low 8.4 - 10. 4 mg/dL [place] Chloride [Moles/Vol] 99 mmol/L 98 - 10 7 mmol/L [place] CO2 [Moles/Vol] 28 mmol/L 22 - 30 mmol/L [place] Creatinine [Mass/Vol] 0.49 mg/dL Low 0.52 - 1.25 mg/dL [place] EGFR IF NonAfrican [place]ian >90.0 >60 mL/min [place] Comment on above: KDIGO guidelines pro [...] MDRD (S/P/Bld) [Vol rate/Area] mL/min/{1.73_m2} >60 mL/min [place] Glucose [Mass/Vol] 185 mg/dL High 70 - 100 mg/dL [place] Interpretation and review of laboratory results Abnormal [place] Potassium [Moles/Vol] 3.7 mmol/L 3.5 - 5.1 mmol/L [place] Sodium [Moles/Vol] 134 mmol/L Low 135 - 145 mmol/L [place] Urea nitrogen [Mass/Vol] 11 mg/dL 7 - 20 mg/d L [place] CBC Auto Differentialon 05-1 Absolute Baso # 0.0 10*3/uL 0 - 0.2 10*3/uL [place] Absolute Neut # 10.2 10*3/uL High 1.8 - 7 10*3/uL [place] Basophils/100 WBC (Bld) 0.0 % 0 - 2 % [place] Eosinophils (Bld) [#/Vol] 0.0 10*3/uL 0 - 0.5 10*3/uL [place] Eosinophils/100 WBC (Bld) 0.0 % Low 1 - 6 % [place] Erythrocyte distribution width (RBC) [Ratio] 14.0 % 11.5 - 14.5 % [place] Granulocytes/100 WBC (Bld) 94.9 % High 40 - 80 % [place] Hematocrit (Bld) [Volume fraction] 35.8 % 35 - 47 % [place] Hemoglobin (Bld) [Mass/Vol] 11.9 g/dL 11.7 - 16 g/dL [place] Interpretation and review of laboratory results Abnormal [place] Lymphocytes (Bld) [#/Vol] 0.3 10*3/uL Low 1 - 4.3 10*3/uL [place] Lymphocytes/100 WBC (Bld) 3.1 % Low 20 - 40 % [place] MCH (RBC) [Entitic mass] 31.3 pg 26 - 34 pg [place] MCHC (RBC) [Mass/Vol] 33.1 % 32 - 36 % [place] MCV (RBC) [Entitic vol] 94.5 fL 79 - 98 fL [place], [place] Monocytes (Bld) [#/Vol] 0.2 10*3/uL 0 - 0.8 10*3/uL [place], [place] Monocytes/100 WBC (Bld) 2.0 % 2 - 10 % [place] Platelet mean volume (Bld) [Entitic vol] 7.0 fL Low 7.4 - 10.4 fL [place] Platelets (Bld) [#/Vol] 180 10*3/uL 140 - 440 10*3/uL [place] RBC (Bld) [#/Vol] 3.79 10*6/uL Low 3.8 - 5.2 10*6/uL [place] WBC (Bld) [#/Vol] 10.8 10*3/uL High 3.6 - 10.7 10*3/uL [place] Test Performed by [facility], [address] [place] [address] [place] Gram Stainon 08-03-2019 INR Coag (Bld) [Relative time] Moderate epithelial cells/lpf. Many polymorphonuclear cells/lpf. Moderate gram positive cocci Rare gram negative bacilli. Few gram positive bacilli. Few yeast. [place] Test Performed by [facility], [facility] [place] [address] Specimen Source Comment:Sputum Expectorated [place] Legionella Antigen, Urineon 08-03-2019 LEGIONELLA ANTIGEN Legionella antigen N OT DETECTED. [place] Magnesiumon 08-03-2019 Magnesium [Mass/Vol] 2.1 mg/dL 1.6 - 2 .3 mg/dL [place] Otheron 08-03-2019 Test Performed [address] [facility], [address], [place], [place] [id number] [place] [address] Test Performed by [facility], [facility] [place] [address] Specimen Source Comment:Urine, clean catch [place] Respiratory Virus PCR Panelo n 08-03-2019 [...] pertussis, Bordetella parapertussis, Chlamydia pneumoniae, Mycoplasma pneumoniae [place] Test Performed by [facility], [address] [employer] [place] [address] Specimen Source Comment:Nasopharyngeal Swab [place] STREP PNEUMONIAE ANTIGENon 0 08-03-2019 STREP PNEUMONIAE ANTIGEN, URINE Strep pneumo antigen NOT DETECTED. [place] Urinalysison 08-03-2019 Appearance (U) Clear Clear NA [place] Comment on above: . Bilirubin Urine Negative Negative mg/dL [place] Comment on above: . Color (U) Yellow Lt. Yellow NA [place] Comment on above: . Glucose, Ur Normal Normal (<70) mg/dL [place] Comment on above: . Interpretation and review of laboratory results Abnormal [place] Ketones Ql (U) Negative Negative mg/dL [place] Comment on above: . LEUKOCYTES, UA Negative Negative Sandra/uL [place] Comment on above: . Mucous Threads Few Negative /[LPF] [place] Comment on above: . Nitrite, Urine Negative Negative NA [place] Comment on above: . Occult Blood,Urine Negative Negative mg/dL [place] Comment on above: . pH (U) 6.5 [pH] [place] Comment on above: . Protein (U) [Mass/Vol] 10 mg/dL Abnormal Negative [place] Comment on above: . RBC (U) [#/Vol] 0-2 0 - 2 /[HPF] [place] Comment on above: . Specific [place], Urine 1.014 [place] Comment on above: . Squam Epithel, UA 0-2 3 - 5 /[HPF] [place] Comment on above: . Urobilinogen, Urine 2 mg/dL Abnormal Normal (0-1) [place], [place] Comment on above: . WBC, UA 0-2 0 - 5 /[HPF] [place] Comment on above: . Test Performed by [facility], [address], [place], [place] [address] [place] Basic Metabolic Panelon 07-19 Anion gap [Moles/Vol] 11 mmol/L [place] Calcium [Mass/Vol] 8.7 mg/dL 8.4 - 10. 4 mg/dL [place] Chloride [Moles/Vol] 101 mmol/L 98 - 10 7 mmol/L [place] CO2 [Moles/Vol] 26 mmol/L 22 - 30 mmol/L [place] Creatinine [Mass/Vol] 0.61 mg/dL 0.52 - 1.25 mg/dL [place] EGFR IF NonAfrican [place]err[place]ian >90.0 >60 mL/min [place] Comment on above: KDIGO guidelines pro [...] MDRD (S/P/Bld) [Vol rate/Area] mL/min/{1.73_m2} >60 mL/min [place] Glucose [Mass/Vol] 118 mg/dL High 70 - 100 mg/dL [place] Interpretation and review of laboratory results Abnormal [place] Potassium [Moles/Vol] 3.5 mmol/L 3.5 - 5.1 mmol/L [place] Sodium [Moles/Vol] 139 mmol/L 135 - 145 mmol/L [place] Urea nitrogen [Mass/Vol] 9 mg/dL 7 - 20 mg/d L [place] Test Performed by [facility], [address], [place], [place] [address] [place] COVID-19on 08-02-2019 SARS-CoV-2 Not Detected Expected Result: Not Detected _ Real-time, RT-PCR performed on the [employer] System by the [facility]. Negative results do not preclude SARS-CoV-2 infection and should not be used as the sole basis for treatment or other patient management decisions. This assay was developed by [employer] and distributed under an Emergency Use Authorization (EUA) granted by the FDA for the qualitative detection of SARS-CoV-2 nucleic acid. [place] Test Performed by [facility], [address] [place] [id number] Specimen Source Comment:Nasopharyngeal Swab [place] Hemogram (CBC)on 08-02-2019 Erythrocyte distribution width (RBC) [Ratio] 14.1 % 11.5 - 14.5 % [place] Hematocrit (Bld) [Volume fraction] 37.5 % 35 - 47 % [place] Hemoglobin (Bld) [Mass/Vol] 12.5 g/dL 11.7 - 16 g/dL [place] Interpretation and review of laboratory results Abnormal [place] MCH (RBC) [Entitic mass] 31.5 pg 26 - 34 pg [place] MCHC (RBC) [Mass/Vol] 33.4 % 32 - 36 % [place] MCV (RBC) [Entitic vol] 94.3 fL 79 - 98 fL [place] Platelet mean volume (Bld) [Entitic vol] 7.6 fL 7.4 - 10.4 fL [place] Platelets (Bld) [#/Vol] 196 10*3/uL 140 - 440 10*3/uL [place] RBC (Bld) [#/Vol] 3.98 10*6/uL 3.8 - 5.2 10*6/uL [place] WBC (Bld) [#/Vol] 12.6 10*3/uL High 3.6 - 10.7 10*3/uL [place] Test Performed by [facility], [address] [place], [place], [place] [address] [place] Lactic Acid, Plasmaon 2019 Interpretation and review of laboratory results Abnormal [place] Lactate [Moles/Vol] 0.6 mmol/L Low 0.7 - 2 mmol/L [place] Test Performed by [facility], [address] [place] [address] [place] Troponin x1on 08-02-2019 Troponin I.cardiac [Mass/Vol] ng/mL 0 - 0.034 ng/mL [place] Comment on above: . Test Performed by [facility], [address], [place], [place] [address] [place] XR CHEST PORTABLEon 08-02-19 20 Real, [facility] Incoming Radiology Results From [facility] - 08/02/2019 6:51 PM EDT Patient Name: GONZALO DELUCA ---Diagnostic Radiology--- Exam Date/Time 08/02/2019 18:40:13 EDT Exam CR Chest Portable Ordering Physician JOANIE ALMONTE Accession Number [id number] CPT4 Codes 36066 () Reason For Exam SOB, cough Report [...] Osseous degenerative changes. Report Dictated on Workstation: [facility] --- Final --- Dictating Physician: MD CAMACHO BRIAN Signed Date and Time: 08/02/2019 6:49 pm Signed by: MD CAMACHO BRIAN Transcribed Date and Time: 08/02/2019 6:50 [place] Patient Name: GONZALO DELUCA ---Diagnostic Radiology--- Exam Date/Time 08/02/2019 18:40:13 EDT Exam CR Chest Portable Ordering Physician JOANIE ALMONTE Accession Number [id number] CPT4 Codes 78995 () Reason For Exam SOB, cough Report [...] Osseous degenerative changes. Report Dictated on Workstation: [facility] --- Final --- Dictating Physician: MD CAMACHO BRIAN Signed Date and Time: 08/02/2019 6:49 pm Signed by: MD CAMACHO BRIAN Transcribed Date and Time: 08/02/2019 6:50 [place] Vital Signs Date Time Vital Sign Value Performing Clinician Facility 08-20-2024 10:28-0400 Body height 162.6 cm Elyssa Tesfaye NP Work Phone: [facility] [employer] 08-20-2024 10:28-0400 Body mass index (BMI) [Ratio] 16 kg/m2 Elyssa Tesfaye RADIO COMMUNICATIONS MECHANICIAN Work Phone: [facility] [employer] 08-20-2024 10:28-0400 Body temperature 96.8 [degF] Elyssa Tesfaye RADIO COMMUNICATIONS MECHANICIAN Work Phone: [facility] [employer] 08-20-2024 10:28-0400 Body weight 42.27 kg Elyssa Tesfaye NP Work Phone: [facility] [employer] 08-20-2024 10:28-0400 Diastolic blood pressure 67 mm[Hg] Elyssa Tesfaye RADIO COMMUNICATIONS MECHANICIAN Work Phone: [facility] [employer] 08-20-2024 10:28-0400 Heart rate 92 /min Elyssa Tesfaye NP Work Phone: [facility] [employer] 08-20-2024 10:28-0400 SaO2% (BldA) [Mass fraction] 91 % Elyssa Tesfaye NP Work Phone: [facility] [employer] Comment on above: 4Lp 08-20-2024 10:28-0400 Systolic blood pressure 105 mm[Hg] Elyssa Tesfaye NP Work Phone: [facility] [employer] 08-08-2024 13:22-0400 Heart rate 88 /min Luis E Keating DO Work Phone: [facility] [employer] 08-08-2024 13:22-0400 Respiratory rate 24 /min Luis E Keating DO Work Phone: [facility] [employer] 08-08-2024 13:22-0400 SaO2% (BldA) [Mass fraction] 92 % Luis E Glaserla DO Work Phone: [facility] [employer] 08-08-2024 08:14-0400 Body temperature 97.2 [degF] Luis E Glaserla DO Work Phone: [facility] [employer] 08-08-2024 08:14-0400 Diastolic blood pressure 64 mm[Hg] Luis E Jailynla DO Work Phone: [facility] [employer] 08-08-2024 08:14-0400 Systolic blood pressure 99 mm[Hg] Luis E Glaserla DO Work Phone: [facility] [employer] 08-06-2024 14:25-0400 Body height 162.6 cm Luis E Keating DO Work Phone: [facility] [employer] 08-03-2024 21:01-0400 Body mass index (BMI) [Ratio] 15.29 kg/m2 Luis E Keating DO Work Phone: [facility] [employer] 08-03-2024 21:01-0400 Body weight 40.4 kg Luis E Keating DO Work Phone: [facility] [employer] 07-30-2024 14:53-0400 Body height 164.1 cm Herminia Case MD Work Phone: [facility] 07-30-2024 14:53-0400 Body mass index (BMI) [Ratio] 15.08 kg/m2 Herminia Case MD Work Phone: [facility] 07-30-2024 14:53-0400 Body temperature 98.4 [degF] Herminia Case MD Work Phone: [facility] 07-30-2024 14:53-0400 Body weight 40.6 kg Herminia Case MD Work Phone: [facility] 07-30-2024 14:53-0400 Diastolic blood pressure 78 mm[Hg] Herminia Case MD Work Phone: [facility] 07-30-2024 14:53-0400 Heart rate 106 /min Herminia Case MD Work Phone: [facility] 07-30-2024 14:53-0400 SaO2% (BldA) [Mass fraction] 82 % Herminia Case MD Work Phone: [facility] 07-30-2024 14:53-0400 Systolic blood pressure 120 mm[Hg] Herminia Case MD Work Phone: [facility] 04-28-2024 01:19-0500 Diastolic blood pressure 78 mm[Hg] Flako Altamirano MD Work Phone: [facility] [employer] 04-28-2024 01:19-0500 Heart rate 87 /min Flako Altamirano MD Work Phone: [facility] [employer] 04-28-2024 01:19-0500 Respiratory rate 16 /min Flako Altamirano MD Work Phone: [facility] [employer] 04-28-2024 01:19-0500 SaO2% (BldA) [Mass fraction] 96 % Flako Altamirano MD Work Phone: [facility] [employer] 04-28-2024 01:19-0500 Systolic blood pressure 119 mm[Hg] Flako Altamirano MD Work Phone: [facility] [employer] 04-27-2024 23:43-0500 Body height 160 cm Flako Altamirano MD Work Phone: [facility] [employer] 04-27-2024 23:43-0500 Body mass index (BMI) [Ratio] 19.13 kg/m2 Flako Altamirano MD Work Phone: [facility] [employer] 04-27-2024 23:43-0500 Body temperature 98.1 [degF] Flako Altamirano MD Work Phone: [facility] [employer] 04-27-2024 23:43-0500 Body weight 48.99 kg Flako Altamirano MD Work Phone: [facility] [employer] 10-16-2023 21:24-0400 Body temperature 98.1 [degF] Herminia Case MD Work Phone: [facility] [employer] 10-16-2023 21:24-0400 Diastolic blood pressure 95 mm[Hg] Herminia Case MD Work Phone: [facility] [employer] 10-16-2023 21:24-0400 Heart rate 99 /min Herminia Case MD Work Phone: [facility] [employer] 10-16-2023 21:24-0400 Respiratory rate 14 /min Herminia Case MD Work Phone: [facility] [employer] 10-16-2023 21:24-0400 SaO2% (BldA) [Mass fraction] 94 % Herminia Case MD Work Phone: [facility] [employer] 10-16-2023 21:24-0400 Systolic blood pressure 125 mm[Hg] Herminia Case MD Work Phone: [facility] [employer] 09-22-2023 07:58-0400 Body temperature 97.39 [degF] Jono Weathers MD Work Phone: [facility] [employer] 09-22-2023 07:58-0400 Diastolic blood pressure 96 mm[Hg] Jono Weathers MD Work Phone: [facility] [employer] 09-22-2023 07:58-0400 Heart rate 99 /min Jono Weathers MD Work Phone: [facility] [facility] [employer] 09-22-2023 07:58-0400 Respiratory rate 17 /min Jono Weathers MD Work Phone: [facility] [employer] 09-22-2023 07:58-0400 SaO2% (BldA) [Mass fraction] 96 % Jono Weathers MD Work Phone: [facility] [employer] 09-22-2023 07:58-0400 Systolic blood pressure 140 mm[Hg] Jono Weathers MD Work Phone: [facility] 09-20-2023 15:22-0400 Body height 165.1 cm Jono Weathers MD Work Phone: [facility] 09-20-2023 15:22-0400 Body mass index (BMI) [Ratio] 19.14 kg/m2 Jono Weathers MD Work Phone: [facility] 09-20-2023 15:22-0400 Body weight 52.16 kg Jono Weathers MD Work Phone: [facility] 09-08-2023 15:40-0400 Body height 164.1 cm Barbi Goldberg MD Work Phone: [facility] 09-08-2023 15:40-0400 Body mass index (BMI) [Ratio] 20.61 kg/m2 Barbi Goldberg MD Work Phone: [facility] 09-08-2023 15:40-0400 Body temperature 99.3 [degF] Barbi Goldberg MD Work Phone: [facility] 09-08-2023 15:40-0400 Body weight 55.5 kg Barbi Goldberg MD Work Phone: [facility] 09-08-2023 15:40-0400 Diastolic blood pressure 87 mm[Hg] Barbi Goldberg MD Work Phone: [facility] 09-08-2023 15:40-0400 Heart rate 105 /min Barbi Goldberg MD Work Phone: [facility] 09-08-2023 15:40-0400 SaO2% (BldA) [Mass fraction] 92 % Barbi Goldberg MD Work Phone: [facility] 09-08-2023 15:40-0400 Systolic blood pressure 139 mm[Hg] Barbi Goldberg MD Work Phone: [facility] 08-07-2023 18:00-0400 Diastolic blood pressure 79 mm[Hg] Herminia Case MD Work Phone: [facility] 08-07-2023 18:00-0400 Heart rate 97 /min Herminia Case MD Work Phone: [facility] 08-07-2023 18:00-0400 Respiratory rate 23 /min Herminia Case MD Work Phone: [facility] 08-07-2023 18:00-0400 SaO2% (BldA) [Mass fraction] 92 % Herminia Case MD Work Phone: [facility] 08-07-2023 18:00-0400 Systolic blood pressure 137 mm[Hg] Herminia Case MD Work Phone: [facility] 08-07-2023 14:41-0400 Body mass index (BMI) [Ratio] 20.8 kg/m2 Herminia Case MD Work Phone: [facility] 08-07-2023 14:41-0400 Body temperature 98.01 [degF] Herminia Case MD Work Phone: [facility] 08-07-2023 14:41-0400 Body weight 56.7 kg Herminia Case MD Work Phone: [facility] 05-02-2023 14:31-0500 Body height 164.1 cm Herminia Case MD Work Phone: [facility] 05-02-2023 14:31-0500 Body temperature 98.1 [degF] Herminia Case MD Work Phone: [facility] 05-02-2023 14:31-0500 Body weight 60.1 kg Herminia Case MD Work Phone: [facility] 05-02-2023 14:31-0500 Diastolic blood pressure 78 mm[Hg] Herminia Case MD Work Phone: [facility] 05-02-2023 14:31-0500 Heart rate 87 /min Herminia Case MD Work Phone: [facility] 05-02-2023 14:31-0500 SaO2% (BldA) [Mass fraction] 90 % Herminia Case MD Work Phone: [facility] 05-02-2023 14:31-0500 Systolic blood pressure 112 mm[Hg] Herminia Case MD Work Phone: [facility] 02-18-2023 09:31-0500 Body temperature 98.01 [degF] Lorenzo Orozco MD Work Phone: [facility] 02-18-2023 09:31-0500 Diastolic blood pressure 76 mm[Hg] Lorenzo Orozco MD Work Phone: [facility] 02-18-2023 09:31-0500 Heart rate 87 /min Lorenzo Orozco MD Work Phone: [facility] 02-18-2023 09:31-0500 Respiratory rate 20 /min Lorenzo Orozco MD Work Phone: [facility] 02-18-2023 09:31-0500 SaO2% (BldA) [Mass fraction] 97 % Lorenzo Orozco MD Work Phone: [facility] 02-18-2023 09:31-0500 Systolic blood pressure 128 mm[Hg] Lorenzo Orozco MD Work Phone: [facility] 02-14-2023 10:00-0500 Body mass index (BMI) [Ratio] 22.47 kg/m2 Lorenzo Orozco MD Work Phone: [facility] 02-14-2023 10:00-0500 Body weight 61.24 kg Lorenzo Orozco MD Work Phone: [facility] 02-13-2023 19:05-0500 Body height 165.1 cm Lorenzo Orozco MD Work Phone: [facility] 01-14-2023 16:00-0400 Body height 164.1 cm Herminia Case MD Work Phone: [facility] 01-14-2023 16:00-0400 Body temperature 97.59 [degF] Herminia Case MD Work Phone: [facility] 01-14-2023 16:00-0400 Body weight 62.14 kg Herminia Case MD Work Phone: [facility] 01-14-2023 16:00-0400 Diastolic blood pressure 70 mm[Hg] Herminia Case MD Work Phone: [facility] 01-14-2023 16:00-0400 Heart rate 83 /min Herminia Case MD Work Phone: [facility] 01-14-2023 16:00-0400 SaO2% (BldA) [Mass fraction] 93 % Herminia Case MD Work Phone: [facility] 01-14-2023 16:00-0400 Systolic blood pressure 100 mm[Hg] Herminia Case MD Work Phone: [facility] 11-08-2022 08:37-0400 Heart rate 87 /min Austyn Mccann DO Work Phone: [facility] 11-08-2022 08:37-0400 Respiratory rate 16 /min Austyn Mccann DO Work Phone: [facility] 11-08-2022 08:37-0400 SaO2% (BldA) [Mass fraction] 97 % Austyn Mccann DO Work Phone: [facility] 11-08-2022 07:29-0400 Body temperature 97.81 [degF] Austyn Mccann DO Work Phone: [facility] 11-08-2022 07:29-0400 Diastolic blood pressure 63 mm[Hg] Austyn Valentinbour DO Work Phone: [facility] 11-08-2022 07:29-0400 Systolic blood pressure 108 mm[Hg] Austyn Mccann DO Work Phone: [facility] 11-06-2022 18:36-0400 Body height 162.6 cm uAstyn Mccann DO Work Phone: [facility] 11-06-2022 18:36-0400 Body mass index (BMI) [Ratio] 22.31 kg/m2 Austyn Mccann DO Work Phone: [facility] [employer] 11-06-2022 18:36-0400 Body weight 58.97 kg Austyn Mccann DO Work Phone: [facility] [employer] 10-20-2022 14:06-0400 Body height 160 cm Kisha Afshin SEED LABORATORY TECHNICIAN - [employer] Work Phone: [facility] [employer] 10-20-2022 14:06-0400 Body mass index (BMI) [Ratio] 23.56 kg/m2 Kisha Afshin SEED LABORATORY TECHNICIAN - [employer] Work Phone: [facility] [employer] 10-20-2022 14:06-0400 Body weight 60.33 kg Kisha Afshin SEED LABORATORY TECHNICIAN - [employer] Work Phone: [facility] [employer] 10-20-2022 14:06-0400 Diastolic blood pressure 83 mm[Hg] Kisha Afshin SEED LABORATORY TECHNICIAN - [employer] Work Phone: [facility] [employer] 10-20-2022 14:06-0400 Heart rate 96 /min Kisha Afshin SEED LABORATORY TECHNICIAN - [employer] Work Phone: [facility] [employer] 10-20-2022 14:06-0400 Systolic blood pressure 143 mm[Hg] Kisha Afshin SEED LABORATORY TECHNICIAN - [employer] Work Phone: [facility] [employer] 09-15-2022 14:40-0400 Body height 165.1 cm Melva Ladonna PA-C Work Phone: [facility] 09-15-2022 14:40-0400 Body temperature 97.3 [degF] Melva Ladonna PA-C Work Phone: [facility] 09-15-2022 14:40-0400 Body weight 61.1 kg Melva Ladonna PA-C Work Phone: [facility] 09-15-2022 14:40-0400 Diastolic blood pressure 78 mm[Hg] Melva Proctor PA-C Work Phone: [facility] 09-15-2022 14:40-0400 Heart rate 101 /min Melva Proctor PA-C Work Phone: [facility] 09-15-2022 14:40-0400 SaO2% (BldA) [Mass fraction] 95 % Melva Milianland PA-C Work Phone: [facility] 09-15-2022 14:40-0400 Systolic blood pressure 133 mm[Hg] Melva Milianland PA-C Work Phone: [facility] 05-24-2022 07:52-0500 Heart rate 98 /min Martha Flores MD Work Phone: [facility] [employer] 05-24-2022 07:52-0500 Respiratory rate 16 /min Martha Flores MD Work Phone: [facility] 05-24-2022 07:52-0500 SaO2% (BldA) [Mass fraction] 92 % Martha Flores MD Work Phone: [facility] [employer] 05-24-2022 07:24-0500 Body temperature 98.49 [degF] Martha Flores MD Work Phone: [facility] [employer] 05-24-2022 07:24-0500 Diastolic blood pressure 73 mm[Hg] Martha Flores MD Work Phone: [facility] [employer] 05-24-2022 07:24-0500 Systolic blood pressure 126 mm[Hg] Martha Flores MD Work Phone: [facility] [employer] 05-22-2022 05:38-0500 Body mass index (BMI) [Ratio] 24.32 kg/m2 Martha Flores MD Work Phone: [facility] [employer] 05-22-2022 05:38-0500 Body weight 66.3 kg Martha Flores MD Work Phone: [facility] [employer] 05-21-2022 17:58-0500 Body height 165.1 cm Martha Flores MD Work Phone: [facility] [employer] 04-21-2022 14:05-0500 Body height 165.1 cm Sally Rocha APRN - [place] Work Phone: [facility] [employer] 04-21-2022 14:05-0500 Body mass index (BMI) [Ratio] 23.63 kg/m2 Sally Rocha APRN - [employer] Work Phone: [facility] [employer] 04-21-2022 14:05-0500 Body weight 64.41 kg Sally Rocha APRN - [place] Work Phone: [facility] [employer] 04-21-2022 14:05-0500 Diastolic blood pressure 78 mm[Hg] Sally Rocha APRN - [employer] Work Phone: [facility] [employer] 04-21-2022 14:05-0500 Heart rate 93 /min Sally Rocha APRN - [place] Work Phone: [facility] [employer] 04-21-2022 14:05-0500 Systolic blood pressure 122 mm[Hg] Sally Rocha APRN - [place] Work Phone: [facility] [employer] 08-06-2021 17:18-0400 Heart rate 96 /min Herminia Case MD Work Phone: [facility] 08-06-2021 17:18-0400 SaO2% (BldA) [Mass fraction] 84 % Herminia Case MD Work Phone: [facility] 08-06-2021 16:44-0400 Diastolic blood pressure 74 mm[Hg] Herminia Case MD Work Phone: [facility] 08-06-2021 16:44-0400 Systolic blood pressure 124 mm[Hg] Herminia Case MD Work Phone: [facility] 08-06-2021 16:35-0400 Body temperature 98.8 [degF] Herminia Case MD Work Phone: [facility] 08-06-2021 16:35-0400 Body weight 58.79 kg Herminia Case MD Work Phone: [facility] 10-16-2020 14:42-0400 Body temperature 98.49 [degF] Herminia Case MD Work Phone: [facility] Work Phone: 10-16-2020 14:42-0400 Diastolic blood pressure 79 mm[Hg] Herminia Case MD Work Phone: [facility] Work Phone: 10-16-2020 14:42-0400 Heart rate 85 /min Herminia Case MD Work Phone: [facility] Work Phone: 10-16-2020 14:42-0400 Respiratory rate 20 /min Herminia Case MD Work Phone: [facility] Work Phone: 10-16-2020 14:42-0400 SaO2% (BldA) [Mass fraction] 91 % Herminia Case MD Work Phone: [facility] Work Phone: 10-16-2020 14:42-0400 Systolic blood pressure 117 mm[Hg] Herminia Case MD Work Phone: [employer] Work Phone: 03-16-2020 16:32-0500 BP Diastolic 83 mm[Hg] [place] 03-16-2020 16:32-0500 BP Systolic 133 mm[Hg] [place] 03-16-2020 16:32-0500 Pulse (Heart Rate) 101 /min [place], [place] 03-16-2020 16:32-0500 Pulse Oximetry 94 % [place] 03-16-2020 16:32-0500 Respiratory Rate 20 /min [facility], [place] 03-16-2020 11:57-0500 BMI (Body Mass Index) 23.17 kg/m2 [place] 03-16-2020 11:57-0500 Body Temperature 98.8 [degF] [facility], [place] 03-16-2020 11:57-0500 Body weight 61.24 kg Tani Joseph [facility] , [place] 02-22-2020 09:21-0500 BP Diastolic 72 mm[Hg] Ziyad Menendez [facility] , [place] 02-22-2020 09:21-0500 BP Systolic 102 mm[Hg] Ziyad Alicia [facility] , [place] 02-22-2020 09:21-0500 Pulse (Heart Rate) 98 /min [facility] [place] 02-22-2020 09:21-0500 Pulse Oximetry 92 % [facility] , [place] 02-22-2020 09:21-0500 Respiratory Rate 16 /min [facility] 02-22-2020 09:07-0500 BMI (Body Mass Index) 23.52 kg/m2 Ziyad Alicia [facility], [place] 02-22-2020 09:07-0500 Body weight 62.14 kg [facility] , [place] 02-22-2020 09:07-0500 Height 162.6 cm Ziyad Alicia [facility] , [place] 02-21-2020 14:47-0500 Body Temperature 97.59 [degF] [facility] 02-21-2020 14:47-0500 BP Diastolic 74 mm[Hg] Ziyad Menendez [facility] , [place] 02-21-2020 14:47-0500 BP Systolic 113 mm[Hg] Ziyad Menendez [facility] , [place] 02-21-2020 14:47-0500 Pulse (Heart Rate) 90 /min [facility], [place] 02-21-2020 14:47-0500 Respiratory Rate 20 /min Ziyad Menendez [facility] [place] 02-08-2020 09:28-0500 BMI (Body Mass Index) 23.48 kg/m2 [facility], [place] 02-08-2020 09:28-0500 Body Temperature 98.6 [degF] Ziyad Menendez [facility] [place] [facility] 02-08-2020 09:28-0500 Body weight 62.05 kg Ziyad Menendez [facility] , [place] 02-08-2020 09:28-0500 BP Diastolic 81 mm[Hg] Ziyad Alicia [facility] , [place] 02-08-2020 09:28-0500 BP Systolic 98 mm[Hg] Ziyad Alicia [facility] , [place] 02-08-2020 09:28-0500 Height 162.6 cm Ziyad Alicia [facility] , [place] 02-08-2020 09:28-0500 Pulse (Heart Rate) 104 /min Ziyad Alicia [facility], [place] 02-08-2020 09:28-0500 Pulse Oximetry 91 % Ziyad Alicia [facility] , [place] 02-08-2020 09:28-0500 Respiratory Rate 16 /min Ziyad Alicia [facility] 02-01-2020 09:08-0500 BMI (Body Mass Index) 23.49 kg/m2 Ziyad Alicia [facility], [place] 02-01-2020 09:08-0500 Body weight 62.41 kg [facility] , [place] 02-01-2020 09:080500 Height 163 cm Ziyad Alicia [facility] , [place] 01-31-2020 14:04-0500 Body Temperature 97.9 [degF] [facility] 01-31-2020 14:04-0500 BP Diastolic 82 mm[Hg] Ziyad Alicia [facility] , [place] 01-31-2020 14:04-0500 BP Systolic 117 mm[Hg] [facility] , [place] 01-31-2020 14:04-0500 Pulse (Heart Rate) 109 /min Ziyad Alicia [facility], [place] 01-31-2020 14:04-0500 Respiratory Rate 20 /min [facility] 01-25-2020 09:25-0500 Body Temperature 99.19 [degF] [facility] [place] 01-25-2020 09:25-0500 BP Diastolic 80 mm[Hg] [facility] [place] , [place] 01-25-2020 09:25-0500 BP Systolic 113 mm[Hg] Ziyad Menendez [facility] , [place] 01-25-2020 09:25-0500 Pulse (Heart Rate) 104 /min Ziyad Menendez [facility], [place] 01-25-2020 09:25-0500 Pulse Oximetry 93 % Ziyad Alicia [facility] , [place] 01-25-2020 09:25-0500 Respiratory Rate 16 /min Ziyad Alicia [facility], [place] 01-25-2020 09:21-0500 BMI (Body Mass Index) 23.22 kg/m2 Ziyad Menendez [facility], [place] 01-25-2020 09:21-0500 Body weight 61.69 kg Ziyad Menendez [facility] , [place] 01-25-2020 09:21-0500 Height 163 cm Ziyad Menendez [facility] , [place] 01-24-2020 09:25-0500 BMI (Body Mass Index) 23.22 kg/m2 Ziyad Menendez [facility], [place] 01-24-2020 09:25-0500 Body weight 61.69 kg Ziyad Menendez [facility] , [place] 12-19-2019 15:00-0400 BP Diastolic 77 mm[Hg] Ziyad Menendez [facility] , [place] 12-19-2019 15:00-0400 BP Systolic 144 mm[Hg] Ziyad Menendez [facility] , [place] 12-19-2019 15:00-0400 Pulse (Heart Rate) 92 /min [facility] [place] 12-19-2019 15:00-0400 Pulse Oximetry 99 % Ziyad Menendez [facility] , [place] 12-19-2019 15:00-0400 Respiratory Rate 18 /min Ziyad Menendez [facility], [place] 12-19-2019 11:25-0400 BMI (Body Mass Index) 23.46 kg/m2 Ziyad Menendez [facility], [place] 12-19-2019 11:25-0400 Body Temperature 99.5 [degF] Ziyad Menendez [facility], [place] 12-19-2019 11:25-0400 Body weight 63.96 kg Ziyad Menendez [facility] , [place] 12-19-2019 11:25-0400 Height 165.1 cm Ziyad Menendez [facility] , [place] 11-24-2019 11:45-0400 Body Temperature 98.2 [degF] [facility] [place] 11-24-2019 11:45-0400 BP Diastolic 81 mm[Hg] [facility] [place] 11-24-2019 11:45-0400 BP Systolic 126 mm[Hg] [facility] [place] 11-24-2019 11:45-0400 Pulse (Heart Rate) 90 /min [facility], [place] 11-24-2019 11:45-0400 Pulse Oximetry 97 % [facility] [place] 11-24-2019 11:45-0400 Respiratory Rate 18 /min [facility] 11-22-2019 10:31-0400 Height 165.1 cm [facility] [place] 11-21-2019 21:35-0400 BMI (Body Mass Index) 25.96 kg/m2 [facility], [place] 11-21-2019 21:35-0400 Body weight 70.76 kg [facility] [place] 11-09-2019 22:55-0400 BMI (Body Mass Index) 24.96 kg/m2 [facility], [place] 11-09-2019 22:55-0400 Body Temperature 98.29 [degF] [facility], [place] 11-09-2019 22:55-0400 Body weight 68.04 kg [facility] , [place] Comment on above: from 10/21/19 11-09-2019 22:55-0400 BP Diastolic 72 mm[Hg] [facility] , [place] 11-09-2019 22:55-0400 BP Systolic 120 mm[Hg] [facility] , [place] 11-09-2019 22:55-0400 Pulse (Heart Rate) 107 /min [facility], [place] 11-09-2019 22:55-0400 Pulse Oximetry 95 % [facility] , [place] 11-09-2019 22:55-0400 Respiratory Rate 18 /min [facility] [place] 11-05-2019 13:04-0400 BMI (Body Mass Index) 24.96 kg/m2 Ziyad Alicia [facility], [place] 11-05-2019 13:04-0400 Body Temperature 98.49 [degF] [facility] [place] 11-05-2019 13:04-0400 Body weight 68.04 kg Ziyad Alicia [facility] , [place] 11-05-2019 13:04-0400 BP Diastolic 83 mm[Hg] Ziyad Alicia [facility] , [place] 11-05-2019 13:04-0400 BP Systolic 124 mm[Hg] [facility] , [place] 11-05-2019 13:04-0400 Height 165.1 cm Ziyad Alicia [facility] , [place] 11-05-2019 13:04-0400 Pulse (Heart Rate) 92 /min Ziyad Alicia [facility], [place] 11-05-2019 13:04-0400 Pulse Oximetry 89 % Ziyad Alicia [facility] , [place] 11-05-2019 13:04-0400 Respiratory Rate 16 /min [facility] 10-27-2019 17:39-0400 BP Diastolic 82 mm[Hg] Ankit Zaragoza [facility] , [place] 10-27-2019 17:39-0400 BP Systolic 129 mm[Hg] [facility] [place] [facility] [place] 10-27-2019 17:39-0400 Pulse (Heart Rate) 87 /min Ankit Zaragoza [facility], [place] 10-27-2019 17:39-0400 Pulse Oximetry 95 % Ankit Zaragoza [facility] , [place] 10-27-2019 17:39-0400 Respiratory Rate 18 /min [facility], [place] 10-27-2019 15:07-0400 Body Temperature 98.2 [degF] [facility] 10-27-2019 15:04-0400 BMI (Body Mass Index) 24.96 kg/m2 [facility] [place] [place] 10-27-2019 15:04-0400 Body weight 68.04 kg Aknit Zaragoza [facility] , [place] 10-27-2019 15:04-0400 Height 165.1 cm Ankit Zaragoza [facility] , [place] 10-21-2019 23:01-0400 BP Diastolic 99 mm[Hg] Jaspreet [facility] , [place] 10-21-2019 23:01-0400 BP Systolic 152 mm[Hg] Jaspreet [facility] , [place] 10-21-2019 23:01-0400 Pulse (Heart Rate) 86 /min Jaspreet [facility], [place] 10-21-2019 23:01-0400 Pulse Oximetry 95 % Jaspreet [facility] , [place] 10-21-2019 23:01-0400 Respiratory Rate 18 /min Jaspreet [facility], [place] 10-21-2019 19:59-0400 BMI (Body Mass Index) 24.96 kg/m2 Jaspreet [facility], [place] 10-21-2019 19:59-0400 Body Temperature 98.29 [degF] [facility], [place] 10-21-2019 19:59-0400 Body weight 68.04 kg Jaspreet [facility] , [place] 08-04-2019 09:35-0400 Pulse Oximetry 95 % [facility] [place] 08-04-2019 09:35-0400 Respiratory Rate 18 /[facility] [place] 08-04-2019 09:08-0400 Body Temperature 98.1 [degF] [facility] [place] 08-04-2019 09:08-0400 BP Diastolic 74 mm[Hg] [facility] , [place] 08-04-2019 09:08-0400 BP Systolic 120 mm[Hg] [facility] [place] 08-04-2019 09:08-0400 Pulse (Heart Rate) 66 /min [facility], [place] 08-02-2019 20:51-0400 BMI (Body Mass Index) 23.3 kg/m2 [facility], [place] 08-02-2019 20:51-0400 Body weight 63.5 kg [facility] [place] 08-02-2019 20:51-0400 Height 165.1 cm [place], [place] Encounters Encounter Date Encounter Type Care Provider Facility Start: 11-20-2024 End: 11-20-2024 ambulatory [facility] Start: 11-20-2024 End: 11-20-2024 Subsequent hospital visit by physician Elyssa Tesfaye NP Work Phone: [facility] Comment on above: Chronic obstructive pulmonary disease with acute lower respiratory infection (HCC) Start: 10-24-2024 End: 10-24-2024 ambulatory [facility] Start: 10-01-2024 ambulatory Jameson Mackenziejanes OLS Faci lity:[facility] Start: 09-17-2024 ambulatory Jameson Mackenziejanes OLS Faci lity:[facility] Start: 09-14-2024 ambulatory Jameson Mannjanes OLS Faci lity:[facility] Start: 09-07-2024 End: 09-11-2024 Refill Herminia Case MD Work Phone: [facility] Comment on above: Refill Request Start: 09-07-2024 End: 09-07-2024 Telephone encounter Ziyad Menendez MD Work Phone: [facility] - [place] Start: 09-06-2024 End: 09-06-2024 ambulatory Ziyad Menendez MD Work Phone: [facility] Comment on above: Other specified comp lication of vascular prosthetic devices, implants and grafts, initial encounter (HCC) (Primary Dx); Poor venous access Start: 08-22-2024 End: 09-03-2024 Refill [facility] MD [facility] Comment on above: Refill Request Start: 08-20-2024 End: 08-20-2024 Office outpatient visit 25 minutes Elyssa Tesfaye NP Work Phone: [facility] [place] Comment on above: Hospital discharge f ollow-up (Primary Dx); Acute on chronic respiratory failure with hypoxia (HCC); Centrilobular emphysema (HCC); Aspiration pneumonia of left lower lobe, unspecified aspiration pneumonia type (HCC); Chronic obstructive pulmonary disease with acute lower respiratory infection (HCC); History of tobacco abuse; Severe malnutrition (CMS/HCC) (HCC) Start: 08-20-2024 End: 08-20-2024 ambulatory [facility] Start: 08-18-2024 End: 08-24-2024 Refill Herminia Case MD Work Phone: [facility] Comment on above: Refill Request Start: 08-15-2024 ambulatory Jameson Corral [facility] Faci lity:[facility] Start: 08-13-2024 End: 08-14-2024 Refill Melva Juárez PA-C Work Phone: [facility] Comment on above: Refill Request Start: 08-08-2024 End: 08-08-2024 Orders Only Melva Garcia RN [facility] Comment on above: Chronic obstructive pulmonary disease, unspecified COPD type (HCC) (Primary Dx); Severe malnutrition (CMS/HCC) (HCC) Start: 07-30-2024 End: 08-08-2024 Evaluation and management of inpatient Luis E Keating DO Work Phone: [facility] Cardiac Progressive Care Unit PCU 2E Comment on above: Adult failure to thr kenton (Primary Dx); Severe protein-calorie malnutrition (HCC); Closed supracondylar fracture of left humerus, initial encounter; Severe malnutrition (CMS/HCC) (HCC); Pulmonary emphysema, unspecified emphysema type (HCC); Chronic obstructive pulmonary disease, unspecified COPD type (HCC) Start: 07-30-2024 End: 07-30-2024 Office outpatient visit 25 minutes Herminia Case MD Work Phone: [facility] Comment on above: Chronic respiratory failure with hypoxia (HCC) (Primary Dx); Centrilobular emphysema (HCC); Adult failure to thrive; Severe protein-calorie malnutrition (HCC) Start: 07-30-2024 End: 07-30-2024 ambulatory HERMINIA CASE Facility:[facility] Start: 07-22-2024 End: 07-23-2024 Refill Herminia Case MD Work Phone: [facility] Comment on above: Refill Request Start: 06-30-2024 End: 07-02-2024 Telephone encounter Herminia Case MD Work Phone: [facility] Comment on above: Orders Start: 06-26-2024 End: 06-26-2024 Refill Melva Juárez PA-C Work Phone: [facility] Comment on above: Refill Request Start: 06-07-2024 End: 06-07-2024 Telephone encounter Maddi Valero LPN Work Phone: [facility] Comment on above: Home Care (SOC appro martín.) Home Care (Confirmat ion call.) Start: 06-06-2024 End: 06-06-2024 ambulatory HERMINIA CASE Facility:[facility] Start: 06-06-2024 End: 06-06-2024 Telemedicine consultation with patient Herminia Case MD Work Phone: [facility] Start: 06-06-2024 End: 06-06-2024 Telephone encounter Herminia Case MD Work Phone: [facility] Comment on above: Home Care Panlobular emphysema (HCC) (Primary Dx); Moderate episode of recurrent major depressive disorder (HCC); Chronic respiratory failure with hypoxia (HCC) Start: 05-26-2024 End: 05-28-2024 Refill Herminia Case MD Work Phone: [facility] Comment on above: Refill Request Start: 05-22-2024 End: 06-22-2024 ambulatory Herminia Case MD Work Phone: [facility] Start: 05-08-2024 End: 05-10-2024 Refill Melva Juárez PA-C Work Phone: [facility] Comment on above: Refill Request Start: 05-02-2024 End: 05-02-2024 [facility] Herminia Case MD Work Phone: [facility] Comment on above: Compression fracture of body of thoracic vertebra (HCC) (Primary Dx); Panlobular emphysema (HCC); Moderate episode of recurrent major depressive disorder (HCC); PAUL (generalized anxiety disorder); Chronic respiratory failure with hypoxia (HCC); Hyperlipidemia, mixed; Hyperglycemia; Other closed nondisplaced fracture of proximal end of right humerus with routine healing, subsequent encounter Start: 04-30-2024 End: 05-01-2024 Refill Herminia Case MD Work Phone: [facility] Comment on above: Refill Request Start: 04-27-2024 End: 04-28-2024 Emergency department patient visit Flako Altamirano MD Work Phone: [facility] ED Comment on above: Contusion of face, i nitial encounter (Primary Dx) Start: 04-23-2024 End: 04-24-2024 ambulatory Melva Juárez PA-C Work Phone: [facility] Comment on above: Copd meds Start: 04-06-2024 End: 04-06-2024 Refill Herminia Case MD Work Phone: [facility] Comment on above: Refill Request Start: 03-31-2024 End: 04-03-2024 Refill Herminia Case MD Work Phone: [facility] Comment on above: Refill Request Start: 03-18-2024 End: 03-20-2024 Refill Melva Juárez PA-C Work Phone: [facility] Comment on above: Refill Request Start: 03-10-2024 End: 03-12-2024 Refill Melva Juárez PA-C Work Phone: [facility] Comment on above: Refill Request Start: 03-09-2024 End: 03-09-2024 Refill Herminia Case MD Work Phone: [facility] Comment on above: Refill Request Start: 03-04-2024 End: 03-06-2024 Refill Herminia Case MD Work Phone: [facility] Comment on above: Refill Request Start: 03-01-2024 End: 03-05-2024 Telephone encounter Herminia Case MD Work Phone: [facility] Comment on above: Medication Problem Start: 02-06-2024 End: 02-07-2024 ambulatory Melva Juárez PA-C Work Phone: [facility] Comment on above: [place] Refill Request Start: 01-11-2024 End: 01-11-2024 Refill Brando Simon MD Work Phone: [facility] Comment on above: Refill Request Start: 01-10-2024 End: 01-11-2024 Refill Melva Juárez PA-C Work Phone: [facility] Comment on above: Refill Request Start: 01-09-2024 End: 01-11-2024 Refill Herminia Case MD Work Phone: [facility] Comment on above: Refill Request Copd med Start: 01-08-2024 End: 01-09-2024 Refill Herminia Case MD Work Phone: [facility] Comment on above: Refill Request Start: 12-30-2023 End: 12-30-2023 ambulatory Joaquina Rao APRN.SHOE TURNER Work Phone: [facility] Comment on above: Panlobular emphysema (HCC) Start: 12-30-2023 End: 12-30-2023 Telemedicine consultation with patient Joaquina Rao APRN.SHOE TURNER Work Phone: [facility] Start: 12-27-2023 End: 12-27-2023 Refill Jessica Kong APRN.SHOE TURNER Work Phone: [facility] Comment on above: Refill Request Start: 12-27-2023 End: 12-27-2023 Telephone encounter Herminia Case MD Work Phone: [facility] Comment on above: Orders Start: 12-13-2023 End: 12-14-2023 Telephone encounter Herminia Case MD Work Phone: [facility] Comment on above: Results Refill Request Start: 12-06-2023 End: 12-08-2023 Home visit Herminia Case MD Work Phone: [facility] Comment on above: Osteoporotic vertebr al collapse, with routine healing, subsequent encounter (Primary Dx) Start: 12-06-2023 End: 12-06-2023 Telephone encounter Herminia Case MD Work Phone: [facility] Comment on above: Orders Start: 11-28-2023 End: 11-28-2023 Refill Melva Juárez PA-C Work Phone: [facility] Comment on above: Refill Request Start: 11-14-2023 End: 11-15-2023 Telephone encounter Herminia Case MD Work Phone: [facility] Comment on above: Orders Refill Request Start: 11-12-2023 End: 11-12-2023 Refill Melva Juárez PA-C Work Phone: [facility] Comment on above: Refill Request Start: 11-02-2023 Refill Brando leblanc MD Work Phone: [facility] Comment on above: Refill Request Start: 10-28-2023 Telephone encounter Herminia warner MD Work Phone: [facility] Comment on above: Orders Start: 10-22-2023 Telephone encounter Herminia warner MD Work Phone: [address] [place] [address] Comment on above: Patient Update Start: 10-18-2023 Telephone encounter Hermiina warner MD Work Phone: [facility] Comment on above: Orders Start: 10-16-2023 End: 10-16-2023 Emergency department patient visit Herminia Case MD Work Phone: [facility] ED Comment on above: Fall, initial encoun ter (Primary Dx); Compression fracture of body of thoracic vertebra (HCC) Start: 10-11-2023 Home visit Herminia Mccurdy Work Phone: [facility] Comment on above: Osteoporotic vertebr al collapse, with routine healing, subsequent encounter (Primary Dx) Start: 10-10-2023 Telephone encounter Herminia warner MD Work Phone: [facility] Comment on above: Orders Start: 10-06-2023 Home visit Herminia Mccurdy Work Phone: [facility] Comment on above: Pathological fractur e of vertebra due to other osteoporosis with routine healing, subsequent encounter (Primary Dx) Start: 10-06-2023 Telephone encounter Herminia warner MD Work Phone: [facility] Comment on above: Home Care (Physical therapy delayed 1 week) Start: 10-06-2023 Unlisted evaluation and management service Herminia Case MD Work Phone: [facility] Comment on above: OPENED IN ERROR (Mariam phillip Dx) Start: 09-21-2023 Telephone encounter Herminia warner MD Work Phone: [facility] Comment on above: Patient Update Start: 09-19-2023 End: 09-22-2023 Evaluation and management of inpatient Jono Weathers MD Work Phone: [facility] Cardiac Progressive Care Unit PCU 2E Comment on above: Near syncope (Primar y Dx); Closed head injury, initial encounter; Fall, initial encounter; Compression fracture of T5 vertebra, initial encounter (HCC); Compression fracture of T7 vertebra, initial encounter (HCC); Compression fracture of T8 vertebra, initial encounter (HCC); Compression fracture of L1 vertebra, initial encounter (HCC) Start: 09-16-2023 Refill Herminia Mccurdy Work Phone: [facility] Comment on above: Refill Request Start: 09-15-2023 Refill Herminia Mccurdy Work Phone: [facility] Comment on above: Refill Request Start: 09-14-2023 Refill Melva balderas PA-C Work Phone: [facility] Comment on above: Refill Request Start: 09-08-2023 End: 09-08-2023 ambulatory HERMINIA CASE Facility:[facility] Start: 09-08-2023 End: 09-08-2023 Patient encounter procedure Barbi Goldberg MD Work Phone: [facility] Comment on above: Herpes zoster withou t complication (Primary Dx) Start: 09-06-2023 Telephone encounter Herminia warner MD Work Phone: [facility] Comment on above: [facility]ica [facility] ) Start: 08-20-2023 Refill Herminia Mccurdy Work Phone: [facility] Comment on above: Refill Request Start: 08-07-2023 End: 08-07-2023 Emergency department patient visit Herminia Case MD Work Phone: [facility] ED Comment on above: Bronchitis (Primary Dx); COPD exacerbation (HCC) Start: 08-05-2023 Refill Herminia Mccurdy Work Phone: [facility] Comment on above: Refill Request Start: 07-22-2023 Refill Herminia Mccurdy Work Phone: [facility] Comment on above: Refill Request Start: 07-20-2023 Refill Melva balderas PA-C Work Phone: [facility] Comment on above: Refill Request Start: 07-05-2023 ambulatory Herminia Mccurdy Work Phone: [facility] [place] Start: 07-04-2023 Refill Gena Michaels APRN.SHOE TURNER Work Phone: [facility] Comment on above: Refill Request Start: 07-03-2023 Refill Gena Michaels APRN.SHOE TURNER Work Phone: [facility] Comment on above: Refill Request Start: 06-30-2023 Telephone encounter Herminia warner MD Work Phone: [facility] Comment on above: Medication Problem Start: 06-28-2023 ambulatory Herminia Case M D Work Phone: [facility] Comment on above: Breo Start: 06-25-2023 Refill Herminia Mccurdy Work Phone: [facility] Comment on above: Refill Request Start: 06-24-2023 Refill Herminia Case M Hetal Work Phone: [facility] Comment on above: Refill Request Start: 06-22-2023 ambulatory Herminia Mccurdy Work Phone: [facility] [place] Start: 06-10-2023 Refill Herminia Mccurdy Work Phone: [facility] Comment on above: Refill Request Start: 06-10-2023 End: 06-10-2023 [facility] Herminia Case MD Work Phone: [facility] Comment on above: Moderate episode of recurrent major depressive disorder (HCC) (Primary Dx); Panlobular emphysema (HCC); Chronic respiratory failure with hypoxia (HCC) Start: 05-26-2023 Refill Herminia Mccurdy Work Phone: [facility] Comment on above: Refill Request Start: 05-25-2023 Telephone encounter Herminia warner MD Work Phone: [facility] Comment on above: Orders Start: 05-20-2023 End: 05-20-2023 [facility] Ugo Case MD Work Phone: [facility] Comment on above: Moderate episode of recurrent major depressive disorder (HCC) (Primary Dx); Panlobular emphysema (HCC) Start: 05-19-2023 Telephone encounter Herminia warner MD Work Phone: [facility] Comment on above: Orders Start: 05-18-2023 Home visit Herminia Mccurdy Work Phone: [facility] Comment on above: Age-related osteopor osis with current pathological fracture of left femur, initial encounter (HCC) (Primary Dx) Start: 05-18-2023 Telephone encounter Herminia warner MD Work Phone: [facility] Comment on above: Orders Start: 05-09-2023 Telephone encounter Herminia warner MD Work Phone: [facility] Comment on above: Orders Start: 05-02-2023 End: 05-02-2023 Patient encounter procedure Herminia Case MD Work Phone: [facility] Comment on above: PAUL (generalized anx iety disorder) (Primary Dx); Medication monitoring encounter; Compression fracture of body of thoracic vertebra (HCC); Other closed nondisplaced fracture of proximal end of right humerus with routine healing, subsequent encounter; Chronic respiratory failure with hypoxia (HCC); Panlobular emphysema (HCC); Moderate episode of recurrent major depressive disorder (HCC) Start: 04-29-2023 Telephone encounter Herminia warner MD Work Phone: [facility] Comment on above: Medication Problem Start: 04-27-2023 ambulatory Herminia Mccurdy Work Phone: [facility] Comment on above: Panic attacks Start: 04-21-2023 Telephone encounter Kisha mccurdy SEED LABORATORY TECHNICIAN - SHOE TURNER Work Phone: [facility] Gynecologic Oncology Start: 04-19-2023 Telephone encounter Herminia warner MD Work Phone: [facility] Comment on above: Orders Start: 03-07-2023 Refill Herminia Mccurdy Work Phone: [facility] Comment on above: Refill Request Start: 02-13-2023 End: 02-18-2023 Evaluation and management of inpatient Lorenzo Orozco MD Work Phone: [facility] Comment on above: Lumbar compression f racture, closed, initial encounter (HCC) (Primary Dx); Fall, initial encounter; Multiple falls; Nondisplaced fracture of neck of left femur (HCC) Start: 02-07-2023 Refill Melva balderas PA-C Work Phone: [facility] Comment on above: Refill Request Start: 02-07-2023 Telephone encounter Herminia warner MD Work Phone: [facility] Comment on above: Orders Start: 02-01-2023 ambulatory Agustina Romero PA [facility] Comment on above: Population Health Na vigation Outreach (/Cologuard reminder ) Start: 01-31-2023 Telephone encounter Herminia warner MD Work Phone: [facility] Comment on above: Orders Start: 01-27-2023 ambulatory Jo mariscal MA [facility] Comment on above: Population Health Na vigation Outreach ([facility]O [facility]ARE GAP) Start: 01-24-2023 Telephone encounter Herminia warner MD Work Phone: [facility] Comment on above: Orders Start: 01-21-2023 Telephone encounter Herminia warner MD Work Phone: [facility] Comment on above: Orders Start: 01-17-2023 Telephone encounter Herminia warner MD Work Phone: [facility] Comment on above: Orders Start: 01-14-2023 End: 01-14-2023 Patient encounter procedure Herminia Case MD Work Phone: [facility] Comment on above: Compression fracture of [...] Telephone encounter Herminia warner MD Work Phone: [facility] Comment on above: appointment cancella tion Start: 01-05-2023 Telephone encounter Herminia warner MD Work Phone: [facility] Comment on above: Missed Appointment Start: 12-30-2022 Telephone encounter Herminia warner MD Work Phone: [facility] Comment on above: Orders Start: 12-28-2022 Telephone encounter Herminia warner MD Work Phone: [facility] Comment on above: Orders Start: 12-22-2022 Telephone encounter Herminia warner MD Work Phone: [facility] Comment on above: Orders Start: 12-16-2022 Refill Herminia Mccurdy Work Phone: [facility] Comment on above: Refill Request Start: 12-10-2022 Refill Melva E Free land PA-C Work Phone: [facility] Comment on above: Refill Request Start: 12-09-2022 ambulatory Melva E Free land PA-C Work Phone: [facility] Comment on above: cologuard (cologuard ) Start: 12-09-2022 Telephone encounter Herminia warner MD Work Phone: [facility] Comment on above: Orders Start: 12-07-2022 Home visit Herminia Mccurdy Work Phone: [facility] Comment on above: Age-related osteopor osis with current pathological fracture of left femur with routine healing (Primary Dx) Start: 12-07-2022 Telephone encounter Herminia warner MD Work Phone: [facility] Comment on above: Orders Start: 11-29-2022 Telephone encounter Herminia warner MD Work Phone: [facility] Comment on above: Home Care Start: 11-22-2022 Refill Melva E Free land PA-C Work Phone: [facility] Comment on above: Refill Request Start: 2022 Refill Herminia Mccurdy Work Phone: [facility] Comment on above: Refill Request Start: 11-17-2022 Refill Brando leblnac MD Work Phone: [facility] Comment on above: Refill Request Start: 11-15-2022 Refill Herminia Mccurdy Work Phone: [facility] Comment on above: Refill Request Start: 11-07-2022 ambulatory Herminia Mccurdy Work Phone: [facility] Comment on above: Renewals for my Breo and Flonase Start: 11-06-2022 End: 11-08-2022 Evaluation and management of inpatient Austyn Mccann DO Work Phone: [facility] TELEMET[facility] Comment on above: Closed displaced int ertrochanteric fracture of left femur, initial encounter (HCC) (Primary Dx) Start: 10-27-2022 Telephone encounter Kisha mccurdy SEED LABORATORY TECHNICIAN - SHOE TURNER Work Phone: [facility] Gynecologic Oncology Start: 10-22-2022 Refill Herminia Mccurdy Work Phone: [facility] Comment on above: Refill Request Start: 10-21-2022 Refill Herminia Mccurdy Work Phone: [facility] Comment on above: Refill Request Start: 10-20-2022 End: 10-20-2022 Office outpatient visit 25 minutes 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 - SHOE TURNER Work Phone: [facility] Gynecologic Oncology Comment on above: 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); Encounter for screening mammogram for malignant neoplasm of breast Start: 10-15-2022 Refill Jessica warner SEED LABORATORY TECHNICIAN.SHOE TURNER Work Phone: [facility] Comment on above: Refill Request Start: 09-15-2022 End: 09-15-2022 Patient encounter procedure Melva Sandoval PA-C Work Phone: [facility] Comment on above: Panlobular emphysema (HCC) (Primary Dx); COPD (chronic obstructive pulmonary disease) with acute bronchitis (HCC); Hyperlipidemia, mixed; Medication monitoring encounter; Screening for colon cancer; Medication management; Chronic midline low back pain without sciatica; DDD (degenerative disc disease), lumbar; Major depression, recurrent, chronic (HCC) Start: 08-17-2022 ambulatory Herminia Mccurdy Work Phone: [facility] Start: 07-29-2022 Refill Herminia Mccurdy Work Phone: [facility] Comment on above: Refill Request Start: 07-27-2022 Refill Herminia Mccurdy Work Phone: [facility] Comment on above: Refill Request Start: 07-14-2022 ambulatory Herminia Mccurdy Work Phone: [facility] Start: 07-02-2022 Telephone encounter Herminia warner MD Work Phone: [facility] Comment on above: Patient Update (Rupinder wilsoned her home OT visit today due to illness ) Start: 07-01-2022 Telephone encounter Herminia warner MD Work Phone: [facility] Comment on above: Orders Start: 06-30-2022 Telephone encounter Herminia warner MD Work Phone: [facility] Comment on above: Medication Problem; Patient Update Start: 06-22-2022 ambulatory Herminia Mccurdy Work Phone: [facility] Comment on above: Sinus Problem Start: 06-22-2022 Refill Melva lovell PA-C Work Phone: [facility] Comment on above: Med Change Request Start: 06-22-2022 Telephone encounter Herminia warner MD Work Phone: [facility] Comment on above: Orders Start: 06-14-2022 Telephone encounter Herminia warner MD Work Phone: [facility] Comment on above: Orders Start: 06-03-2022 End: 06-03-2022 ambulatory Herminia Case MD Work Phone: [facility] Comment on above: Other closed nondisp [...] with patient Herminia Case MD Work Phone: [facility] Start: 06-01-2022 Telephone encounter Herminia warner MD Work Phone: [facility] Comment on above: Orders Start: 05-31-2022 Telephone encounter Herminia warner MD Work Phone: [facility] Comment on above: Home Care Management Start: 05-21-2022 End: 05-24-2022 Emergency department patient visit Martha Flores MD Work Phone: [facility] SURG Comment on above: Fall, initial encoun ter (Primary Dx); Facial laceration, initial encounter; Closed fracture of neck of right humerus, initial encounter; Humeral head fracture, right, closed, initial encounter Start: 05-06-2022 Refill Donovan montes MD Work Phone: [facility] Comment on above: Refill Request Start: 04-21-2022 End: 04-21-2022 Office outpatient visit 15 minutes Sally Rocha APRN - SHOE TURNER Work Phone: [facility] [place] MANAGEMENT ANALYST Oncology Comment on above: 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) Start: 04-19-2022 Refill Herminia Mccurdy Work Phone: [facility] Comment on above: Refill Request Start: 04-07-2022 Refill Herminia Mccurdy Work Phone: [facility] Comment on above: Refill Request Start: 04-06-2022 ambulatory Jo Phillips ach MA [facility] [place] Comment on above: Population Health Na vigation Outreach (OSIEL LIMA) Start: 03-08-2022 Refill Melva Balderas Maicol lovell PA-C Work Phone: [facility] Comment on above: Refill Request Start: 03-05-2022 End: 03-05-2022 ambulatory Melva Balderas [place] PA-C Work Phone: [facility] Comment on above: COPD (chronic obstru ctive pulmonary disease) with acute bronchitis (HCC) (Primary Dx); DDD (degenerative disc disease), lumbar; Major depression, recurrent, chronic (HCC) Start: 03-05-2022 End: 03-05-2022 Telemedicine consultation with patient Melva Balderas Ladonna PA-C Work Phone: [facility] Start: 03-05-2022 Telephone encounter Melva E Ladonna PA-C Work Phone: [facility] Comment on above: Appointment Start: 03-03-2022 Telephone encounter Herminia warner MD Work Phone: [facility] Comment on above: Orders Start: 02-16-2022 ambulatory Herminia Mccurdy Work Phone: [facility] Start: 02-08-2022 ambulatory Herminia Mccurdy Work Phone: [facility] Comment on above: Muscle relaxer Refill Request Start: 02-01-2022 ambulatory Herminia Mccurdy Work Phone: [facility] Comment on above: Nurse Triage Call Start: 01-29-2022 ambulatory Macarena leblanc SEED LABORATORY TECHNICIAN.SHOE TURNER Work Phone: [facility] Comment on above: Other acute sinusiti s, recurrence not specified (Primary Dx) Start: 01-13-2022 Refill Herminia Mccurdy Work Phone: [facility] Comment on above: Refill Request Start: 12-09-2021 ambulatory Herminia Case [facility] Start: 12-08-2021 ambulatory Herminia Mccurdy Work Phone: [facility] Comment on above: Breo Start: 11-26-2021 Refill Herminia Mccurdy Work Phone: [facility] Comment on above: Refill Request Start: 10-27-2021 Refill Melva lovell PA-C Work Phone: [facility] Comment on above: Refill Request Start: 10-18-2021 Refill Herminia Mccurdy Work Phone: [facility] Comment on above: Refill Request Start: 10-14-2021 ambulatory Herminia Case [facility] Start: 10-14-2021 End: 10-14-2021 Subsequent hospital visit by physician Ziyad Menendez MD Work Phone: [facility] Med Onc Comment on above: 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); Abnormal chest CT; Other specified complication of vascular prosthetic devices, implants and grafts, initial encounter (HCC); Poor venous access Malignant neoplasm o f exocervix (HCC); Abnormal findings on diagnostic imaging of other specified body structures; Abnormal chest CT Start: 10-13-2021 Telephone encounter Herminia warner MD Work Phone: [facility] Comment on above: Orders ([employer]-Oxy gen order.) Start: 08-26-2021 Refill Jessica warner APRN.CNP Work Phone: [facility] Comment on above: Refill Request Start: 08-07-2021 Telephone encounter Herminia warner MD Work Phone: [facility] Comment on above: Patient Question Start: 08-06-2021 End: 08-06-2021 Patient encounter procedure Herminia Case MD Work Phone: [facility] Comment on above: Panlobular emphysema (HCC) [...] Telephone encounter Herminia warner MD Work Phone: [facility] Comment on above: Orders ([facility] ) Start: 08-04-2021 ambulatory Herminia Case [facility] Start: 07-28-2021 Refill Jessica warner APRN.CNP Work Phone: [facility] Comment on above: Refill Request Start: 07-01-2021 Refill Melva lovell PA-C Work Phone: [facility] Comment on above: Refill Request Start: 02-18-2021 ambulatory Herminia Case [facility] Start: 12-26-2020 ambulatory Herminia Case [facility] Start: 12-26-2020 End: 12-26-2020 Subsequent hospital visit by physician Ziyad Menendez MD Work Phone: [facility] Med Onc Comment on above: 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); Poor venous access Malignant neoplasm o f exocervix (HCC); Lung nodule seen on imaging study Start: 10-16-2020 End: 10-16-2020 Emergency department patient visit Herminia Case MD Work Phone: [facility] ED Comment on above: Closed fracture of c occyx, initial encounter (HCC) (Primary Dx); Contusion of right elbow, initial encounter Start: 09-24-2020 End: 09-24-2020 Subsequent hospital visit by physician Ziyad Menendez MD Work Phone: [facility] CT Scan Comment on above: Arrived Poor venous access ( Primary Dx); Malignant neoplasm of exocervix (HCC) Start: 06-09-2020 End: 06-09-2020 Subsequent hospital visit by physician Ziyad Menendez Work Phone: [facility] Comment on above: 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); Poor venous access Start: 06-06-2020 End: 03-19-2021 Subsequent hospital visit by physician Ziyad Menendez Work Phone: [facility] CT Scan Comment on above: Abnormal findings on diagnostic imaging of other specified body structures; Abnormal CT of the chest Start: 03-16-2020 End: 03-16-2020 Emergency department patient visit Tani Joseph Work Phone: [facility] ED Comment on above: COPD exacerbation (H CC) (Primary Dx); Bronchitis Start: 03-10-2020 End: 03-10-2020 Subsequent hospital visit by physician Ziyad Menendez Work Phone: [facility] CT Scan Comment on above: Malignant neoplasm o f exocervix (HCC); Lung nodule seen on imaging study Start: 03-03-2020 End: 03-03-2020 Subsequent hospital visit by physician Burke Washburn Work Phone: [facility] Start: 02-29-2020 End: 02-29-2020 Subsequent hospital visit by physician Burke Diezer Work Phone: [facility] Start: 02-28-2020 End: 02-28-2020 Subsequent hospital visit by physician Burke Diezer Work Phone: [facility] Start: 02-26-2020 [...] visit by physician Ziyad Menendez Work Phone: [facility] Comment on above: Poor venous access ( [...] visit by physician Ziyad Menendez Work Phone: [facility] Comment on above: Poor venous access ( [...] 01-22-2020 Subsequent hospital visit by physician Burke Diezer Work Phone: [facility] Start: 01-17-2020 [...] 01-11-2020 Subsequent hospital visit by physician Burke Diezer Work Phone: [facility] Start: 01-09-2020 End: 01-09-2020 Subsequent hospital visit by physician Burke Diezer Work Phone: [facility] Start: 12-26-2019 End: 12-26-2019 Subsequent hospital visit by physician Burke Diezer Work Phone: [facility] Start: 12-26-2019 End: 12-26-2019 Subsequent hospital visit by physician Burke Washburn Work Phone: [facility] Rad Onc Start: 12-19-2019 End: 12-20-2019 Subsequent hospital visit by physician Ziyad Menendez Work Phone: [facility] Cath & IR Lab Comment on above: Malignant neoplasm o f exocervix (HCC) Start: 12-11-2019 End: 12-11-2019 Subsequent hospital visit by physician Burke Washburn Work Phone: [facility] Rad Onc Start: 11-21-2019 End: 11-24-2019 Evaluation and management of inpatient Ray Barroso Work Phone: [facility] Comment on above: Right arm weakness ( Primary Dx); Pulmonary emphysema, unspecified emphysema type (HCC) Start: 11-10-2019 End: 11-10-2019 Subsequent hospital visit by physician Herminia Case Work Phone: [facility] Comment on above: Leg swelling Start: 11-10-2019 End: 11-10-2019 Subsequent hospital visit by physician Tani Joseph Work Phone: [facility] Ultrasound Start: 11-09-2019 End: 11-09-2019 Emergency department patient visit Tani Joseph Work Phone: [facility] Comment on above: Leg swelling (Primar y Dx) Start: 11-05-2019 End: 11-05-2019 Subsequent hospital visit by physician Ziyad Menendez Work Phone: [facility] Pre-Admit Testing Comment on above: Pre-op testing (Prim tom Dx) Start: 10-27-2019 End: 10-27-2019 Emergency department patient visit Ankit Zaragoza Work Phone: [facility] Comment on above: Compression fracture of L3 lumbar vertebra, sequela (Primary Dx); Acute exacerbation of chronic low back pain Start: 10-21-2019 End: 10-21-2019 Emergency department patient visit Jaspreet Otto Work Phone: [facility] Comment on above: Compression fracture of lumbar vertebra, initial encounter, unspecified lumbar vertebral level (HCC) (Primary Dx) Start: 08-02-2019 End: 08-04-2019 Evaluation and management of inpatient Joanie Johnson Work Phone: [facility] Procedures Date Procedure Procedure Detail Performing Clinician Start: 08-08-2024 Urnls dip stick/tabl et reagent [...] by MILANA with non-probe detection Leann Cross SEED LABORATORY TECHNICIAN - SHOE TURNER Work Phone: Start: 08-01-2024 Smr prim src gram/gi emsa stain bct fungi/cell Leann Cross SEED LABORATORY TECHNICIAN - SHOE TURNER Work Phone: Start: 07-31-2024 Ct abdomen & pelvis w/contrast material Lauren Serna MD Work Phone: Start: 07-31-2024 Respiratory pathogen s DNA and RNA panel - Nasopharynx by MILANA with non-probe detection Lauren Serna MD Work Phone: Start: 07-30-2024 Urnls dip stick/tabl et reagent auto microscopy Luis E Keating DO Work Phone: Start: 07-30-2024 Radiologic exam ches t single view Luis E Keating DO Work Phone: Start: 07-30-2024 Radex elbow 2 views Vis hnrey Keating DO Work Phone: Start: 07-30-2024 Basic metabolic pane l calcium total Luis E Keating DO Work Phone: Start: 07-30-2024 C-reactive protein Lance Serna MD Work Phone: Start: 07-30-2024 Ecg routine ecg w/le ast 12 lds trcg only w/o i&r Luis E Keating DO Work Phone: Start: 07-30-2024 Application long arm splint shoulder hand Luis E Keating DO Work Phone: Start: 04-28-2024 Ct cervical [...] Ct thorax w/o contra st material Janneth PARRYC Work Phone: Start: 09-22-2023 Basic metabolic pane l calcium total Lauren Serna MD Work Phone: Start: 09-21-2023 Basic metabolic pane l calcium total Lauren Serna MD Work Phone: Start: 09-20-2023 Echo tthrc r-t 2d w/ wom-mode compl spec&colr d Lauren Serna MD Work Phone: Start: 09-20-2023 Ecg routine ecg w/le ast 12 lds trcg only w/o i&r Nickolas Marrero MD Work Phone: Start: 09-20-2023 Basic metabolic [...] Radiologic exam ches t single view Amelie Arsenio Martínez FELIX Work Phone: Start: 08-07-2023 SARS-COV-2, FLU [...] Phone: Start: 11-07-2022 OXYGEN THERAPY Ray Mendez SEED LABORATORY TECHNICIAN - [employer] Work Phone: Start: 11-07-2022 FL GUIDANCE OR [...] in Cervix by Cyto stain 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 - SHOE TURNER Work Phone: Start: 09-15-2022 Blood count complete auto&auto difrntl wbc Melva Sandoval PA-C Work Phone: Start: 09-15-2022 Lipid panel Bulk Order Provider Start: 09-15-2022 Lipid 1996 panel - S soniya or Plasma Herminia Case MD Work Phone: Start: 05-24-2022 Basic metabolic pane l calcium total Teresa Cedillo MD Work Phone: Start: 05-23-2022 Basic metabolic pane l calcium total Dianne Whartoni Suyapa Work Phone: Start: 05-22-2022 Basic metabolic pane l calcium total Dianne Da Silva Suyapa Work Phone: Start: 05-21-2022 Ecg routine ecg w/le ast 12 lds trcg only w/o i&r Marhta Flores MD Work Phone: Start: 05-21-2022 Basic [...] Radex spine lumbosac ral 2/3 views Lauren Perkinsner SEED LABORATORY TECHNICIAN - SHOE TURNER Work Phone: Start: 09-24-2020 Ct thorax w/contrast [...] Radiologic exam ches t single view Ross K Suhail Work Phone: Start: 12-19-2019 Special treatments a [...] 11-22-2019 Dup-scan xtr veins unilateral/limited study Lauren Ferris Kareem Work Phone: Start: 11-22-2019 Electroencephalogram w/rec awake&asleep Chad Salas Magallanes Work Phone: Start: 11-22-2019 Assay of magnesium Lance Serna Work Phone: Start: 11-22-2019 Blood count complete auto&auto difrntl wbc Lauren Serna Work Phone: Start: 11-22-2019 Blood count complete automated Lauren Serna Work Phone: Start: 11-22-2019 Hemoglobin glycosylated a1c Lauren Serna Work Phone: Start: 11-22-2019 Lipid panel Lauren Barrington booth Work Phone: Start: 11-21-2019 Speech and [...] Work Phone: Start: 11-21-2019 Prothrombin time Lacey Barroso Work Phone: Start: 11-21-2019 Thromboplastin time partial plasma/whole blood Ray Barroso Work Phone: Start: 11-21-2019 Oxygen therapy [Mini mum Data Set] Ray Barroso Work Phone: Start: 11-21-2019 Ecg routine ecg w/le ast 12 lds w/i&r Ray Barroso Work Phone: Start: 11-21-2019 Gluc bld gluc mntr d ev cleared fda spec home use Unknown Provider Result Start: 11-18-2019 Microscopic examinat ion of blood, culture Comment on above: Order Comment: Speci men Source Comment:Blood Performed By: #### C /BLT ####[address] [id number] Start: 11-07-2019 H/O: hysterectomy S/P hysterectomy C venkat Rocha SEED LABORATORY TECHNICIAN - SHOE TURNER Work Phone: Start: 11-06-2019 H/O: hysterectomy S/P [...] Iadna respiratry pro be & rev trnscr 03-14 target Joanie R Alex Work Phone: Start: [...] Screening for malign ant neoplasm of cervix [facility] Start: 09-16-2027 Lipid 1996 panel - S soniya or Plasma Lipid Screening [facility] Start: 09-16-2027 Lipid panel Lipid Screening [facility] Start: 09-16-2027 LIPID SCREEN LIPID SCREEN [facility] Start: 08-09-2027 Diabetes Screening Diabetes Screenin [facility] Start: 07-31-2027 Diabetes Screening Diabetes Screenin [facility] Start: 04-27-2027 Diabetes Screening Diabetes Screenin g [facility] Start: 09-21-2026 Diabetes Screening Diabetes Screenin g [facility] Start: 08-08-2026 DTaP/Tdap/Td vaccine (2 - Td or Tdap) DTaP/Tdap/Td vaccine (2 - Td or Tdap) [facility] Start: 08-08-2026 DTaP/Tdap/Td vaccine (2 - Td) DTaP/Tdap/Td vaccine (2 - Td) [place] Start: 08-08-2026 DTaP/Tdap/Td Vaccine s (2 - Td or Tdap) DTaP/Tdap/Td Vaccines (2 - Td or Tdap) [facility] Start: 08-08-2026 Urine microalbumin profile [facility] Start: 08-06-2026 Diabetes Screening Diabetes Screenin g [facility] Start: 02-18-2026 Diabetes Screening Diabetes Screenin g [facility] Start: 11-08-2025 Diabetes Screening Diabetes Screenin g [facility] Start: 10-20-2025 Screening for malign ant neoplasm of cervix Pap Smear [facility] Start: 09-15-2025 DIABETES SCREEN DIABETES SCREEN [facility] Start: 09-15-2025 Diabetes Screening Diabetes Screenin g [facility] Start: 07-30-2025 Annual PCP Team Registered Respiratory Technician kyrie Disease Visit Annual PCP Team Chronic Disease Visit [facility] Start: 06-06-2025 Annual PCP Team Registered Respiratory Technician kyrie Disease Visit Annual PCP Team Chronic Disease Visit [facility] Start: 05-02-2025 Annual PCP Team Registered Respiratory Technician kyrie Disease Visit Annual PCP Team Chronic Disease Visit [facility] Start: 12-29-2024 Annual PCP Team Registered Respiratory Technician kyrie Disease Visit Annual PCP Team Chronic Disease Visit [facility] Start: 12-04-2024 Subsequent hospital visit by physician 12/04/2024 7:45 AM EDT Hospital Encounter [facility] Pulmonary Function Lab [address] [place] [phone] Elyssa Tesfaye NP [address] [place], [place] [id number] [facility] Start: 11-26-2024 End: 11-26-2024 Patient encounter procedure 11/26/2024 1:30 PM EDT Office Visit [facility] Pulmonary and Sleep Medicine [facility] [address] [place] [address] Elyssa Tesfaye NP [address] [place], [place] [phone] [facility] Pulmonary and Sleep Medicine [facility] Start: 11-20-2024 End: 11-20-2024 Patient encounter procedure 11/20/2024 3:45 PM EDT Appointment [facility] [address] [place] [address] Elyssa Tesfaye, LEONELA [address] [place] [address] [facility] [address] Start: 11-20-2024 End: 08-20-2025 CT Chest WO contrast [facility] [employer] [facility] Work Phone: Comment on above: Expected: 11/20/2024 , Expires: 08/20/2025 Once for 1 Occurrenc es starting 11/20/2024 until 11/20/2024 Start: 2024 COVID-19 Vaccine ( season) COVID-19 Vaccine ( season) [facility] Start: 2024 Influenza vaccination C [facility] Start: 10-24-2024 End: 10-24-2024 Patient encounter procedure 10/24/2024 10:00 AM EDT Appointment [facility] PFT [address] [place] [phone] Elyssa Tesfaye NP [address] [place] [address] [facility] PFT Start: 10-18-2024 End: 10-18-2024 ambulatory 10/18/2024 3:30 PM EDT Infusion [facility] [address] [place] [phone] Ziyad Menendez MD [address] [facility] [address] [place] [address] [facility] Start: 10-15-2024 Screening for malign ant neoplasm of lung Lung Cancer Screening [facility] Start: 10-11-2024 HPV TESTING HPV TESTING [facility] Start: 10-11-2024 PAP TESTING PAP TESTING [facility] Start: 09-24-2024 End: 09-24-2024 Patient encounter procedure 09/24/2024 10:00 AM EDT Office Visit [facility] Gynecologic Oncology - [place] [address] [place] [phone] Radha Orellana, DB - SHOE TURNER [address] [facility] [address] [place] [address] [facility] Gynecologic Oncology - [place] Start: 09-17-2024 Screening for malign ant neoplasm of cervix [facility] Start: 09-07-2024 Annual PCP Team Registered Respiratory Technician kyrie Disease Visit Annual PCP Team Chronic Disease Visit [facility] Start: 09-04-2024 End: 09-04-2024 ambulatory 09/04/2024 2:30 PM EDT Infusion [facility] [address] [place] [address] [facility] Start: 08-20-2024 End: 08-20-2025 Complete PFT pre and post bronchodilator with FENO Complete PFT pre and post bronchodilator with FENO PFT Routine Chronic obstructive pulmonary disease with acute lower respiratory infection (HCC) Centrilobular emphysema (HCC) Expected: 08/20/2024 (Approximate), Expires: 08/20/2025 [facility] Comment on above: Expected: 08/20/2024 (Approximate), Expires: 08/20/2025 Start: 08-20-2024 End: 08-20-2024 Patient encounter procedure 08/20/2024 10:30 AM EDT Office Visit [facility] Pulmonary and Sleep Medicine [facility] [address] [place] [address] Elyssa Tesfaye NP [address] [place] [address] [facility] Pulmonary and Sleep Medicine [facility] Start: 07-30-2024 End: 07-30-2024 Patient encounter procedure 07/30/2024 3:00 PM EDT Office Visit [facility] [address] [address] Herminia Case MD [address] [place] [address] back pain [facility] Comment on above: back pain Start: 06-30-2024 End: 09-29-2024 CBC W Auto Differential panel - Blood COMPLETE BLOOD COUNT AND DIFFERENTIAL Lab Routine Hyperlipidemia, mixed Expected: 06/30/2024 (Approximate), Expires: 09/29/2024 [facility] Comment on above: Expected: 06/30/2024 (Approximate), Expires: 09/29/2024 Start: 06-30-2024 End: 09-29-2024 Hemoglobin A1c in Blood HEMOGLOBIN A1C Lab Routine Hyperglycemia Expected: 06/30/2024 (Approximate), Expires: 09/29/2024 [facility] Work Phone: Comment on above: Expected: 06/30/2024 (Approximate), Expires: 09/29/2024 Start: 06-30-2024 End: 09-29-2024 Hepatic function 2000 panel - Serum or Plasma HEPATIC FUNCTION PNL Lab Routine Hyperlipidemia, mixed Expected: 06/30/2024 (Approximate), Expires: 09/29/2024 [facility] Comment on above: Expected: 06/30/2024 (Approximate), Expires: 09/29/2024 Start: 06-30-2024 End: 09-29-2024 Lipid 1996 panel - Serum or Plasma LIPID PANEL BASIC Lab Routine Hyperlipidemia, mixed Expected: 06/30/2024 (Approximate), Expires: 09/29/2024 [facility] Comment on above: Expected: 06/30/2024 (Approximate), Expires: 09/29/2024 Start: 06-09-2024 Annual PCP Team Registered Respiratory Technician kyrie Disease Visit Annual PCP Team Chronic Disease Visit [facility] Start: 06-06-2024 End: 06-06-2024 [facility] [address] [address] eHrminia Case MD [address] [place] [address] discuss assisted living/intermediate [facility] Comment on above: discuss assisted raul ing/intermediate Start: 05-19-2024 Annual PCP Team Registered Respiratory Technician kyrie Disease Visit Annual PCP Team Chronic Disease Visit [facility] Start: 05-02-2024 Annual PCP Team Registered Respiratory Technician kyrie Disease Visit Annual PCP Team Chronic Disease Visit [facility] Start: 03-22-2024 Depression Monitoring Depression [facility] Start: 03-21-2024 Advance Directive Discussion Advance Directive Discussion [facility] Start: 03-21-2024 Medicare Advantage Annual Wellness Visit Medicare Advantage Annual Wellness Visit [facility] Start: 03-11-2024 Annual PCP Team Registered Respiratory Technician kyrie Disease Visit Annual PCP Team Chronic Disease Visit [facility] Start: 01-15-2024 Annual PCP Team Registered Respiratory Technician kyrie Disease Visit Annual PCP Team Chronic Disease Visit [facility] Start: 12-08-2023 LIPID SCREEN LIPID SCREEN [facility] Start: 11-20-2023 Covid-19 Vaccine ( season) Covid-19 Vaccine () [facility] Start: 11-20-2023 Covid-19 Vaccine () Covid-19 Vaccine () [facility] Start: 11-20-2023 Influenza vaccination C [facility] Start: 09-18-2023 Influenza vaccination Influenza Vacc ine (#1) [facility] Comment on above: Postponed from 11/19 (Declined at this time) Start: 09-16-2023 ANNUAL PCP TEAM MANAGER OF WAREHOUSE KYRIE DISEASE VISIT ANNUAL PCP TEAM CHRONIC DISEASE VISIT [facility] Start: 09-16-2023 Zoledronic acid therapy ALPHA- 1 ANTITRYPSIN DEFICIENCY SCREENING [facility] Comment on above: Postponed from 11/19 (Declined at this time) Start: 09-13-2023 DIABETES SCREEN DIABETES SCREEN [facility] Start: 09-08-2023 End: 09-08-2023 Patient encounter procedure 09/08/2023 3:20 PM EDT Office Visit [facility] [address] [address] Barbi Goldberg MD [address] [place] [address] [facility] Comment on above: [facility] Start: 08-24-2023 End: 08-24-2023 Follow-up encounter 08/24/2023 3:00 PM EDT [facility] [address] [address] Melva Juárez, PA-C [address] [place] [address] Follow up visit [facility] Comment on above: Follow up visit Start: 08-16-2023 End: 08-16-2023 Patient encounter procedure 08/16/2023 10:00 AM EDT Office Visit [facility] [address] [address] Herminia Case MD [address] [place] [address] sick [facility] Comment on above: sick Start: 08-03-2023 End: 08-03-2023 Follow-up encounter 08/03/2023 11:20 AM EDT [facility] [address] [address] Herminia Case MD [address] [place] [address] Follow up [facility] Comment on above: Follow up Start: 07-22-2023 End: 07-22-2023 Follow-up encounter 07/22/2023 1:00 PM EDT [facility] [address] [address] Herminia Case MD [address] [place] [address] 6 week follow up-anxiety and depression [facility] Comment on above: 6 week follow up-anx iety and depression Start: 07-05-2023 End: 10-04-2023 Lipid 1996 panel - Serum or Plasma LIPID PANEL BASIC Lab Routine Medication management Expected: 07/05/2023, Expires: 10/04/2023 [facility] Work Phone: Comment on above: Expected: 07/05/2023 , Expires: 10/04/2023 Start: 06-04-2023 ANNUAL PCP TEAM MANAGER OF WAREHOUSE KYRIE DISEASE VISIT ANNUAL PCP TEAM CHRONIC DISEASE VISIT [facility] Start: 06-04-2023 COVID-19 VACCINE (#1) COVID-19 VACCI NE (#1) [facility] Comment on above: Postponed from 05/19 (Declined at this time) Start: 06-04-2023 SHINGRIX VACCINE (2 of 2) SHINGRIX VACCINE (2 of 2) [facility] Comment on above: Postponed from 12/05 (Declined at this time) Start: 05-02-2023 End: 08-01-2023 PAIN PANEL, UR QUANT [facility] Work Phone: Comment on above: Expected: 05/02/2023 , Expires: 08/01/2023 Start: 04-22-2023 End: 04-22-2023 Patient encounter procedure [facility] Gynecologic Oncology Start: 03-21-2023 Advance Directive Discussion Advance Directive Discussion [facility] Start: 03-21-2023 Medicare Advantage Annual Wellness Visit Medicare [facility] Annual Wellness Visit [facility] Start: 03-09-2023 End: 03-09-2023 Patient encounter procedure 03/09/2023 11:15 AM EST Office Visit [facility] Care [address] [place] [address] Freddy Person MD [address] [address] [facility] Start: 03-05-2023 ANNUAL PCP TEAM MANAGER OF WAREHOUSE KYRIE DISEASE VISIT ANNUAL PCP TEAM CHRONIC DISEASE VISIT [facility] Start: 11-20-2022 ANNUAL PCP TEAM MANAGER OF WAREHOUSE KYRIE DISEASE VISIT ANNUAL PCP TEAM CHRONIC DISEASE VISIT [facility] Start: 2022 Covid-19 Vaccine ( season) Covid-19 Vaccine ( season) [facility] Start: 2022 Influenza vaccination C [facility] Start: 11-17-2022 End: 11-17-2022 Patient encounter procedure 11/17/2022 9:00 AM EDT Office Visit [facility] [address] [place] [address] Nabeel Tran MD [address] [place] [address] [facility] Start: 11-10-2022 End: 11-10-2022 Patient encounter procedure 11/10/2022 3:30 PM EDT Appointment [facility] [address] [place] [phone] Kisha Pepe APRN - SHOE TURNER [address] [place], [place] [id number] [facility] Imaging Start: 10-27-2022 End: 10-27-2022 Patient encounter procedure 10/27/2022 10:40 AM EDT Office Visit [facility] [address] [place] [address] Nabeel Tran MD [address] [place] [address] [facility] Start: 10-24-2022 Screening for malign ant neoplasm of cervix Cervical cancer screen [place], [place] Start: 10-20-2022 End: 10-21-2023 CT Chest WO contrast CT chest wo IV contrast Imaging Routine Malignant neoplasm of exocervix (HCC) Expected: 10/20/2022, Expires: 10/21/2023 [facility] Work Phone: Comment on above: Expected: 10/20/2022 , Expires: 10/21/2023 Start: 10-20-2022 End: 12-21-2023 DBT Breast - bilateral screening Bilateral screening mammogram with tomosynthesis Imaging Routine Encounter for screening mammogram for malignant neoplasm of breast Expected: 10/20/2022, Expires: 12/21/2023 [facility] Comment on above: Expected: 10/20/2022 , Expires: 12/21/2023 Start: 10-20-2022 End: 10-20-2022 Patient encounter procedure 10/20/2022 Office Visit Gynecologic Oncology Kisha Pepe APRN - SHOE TURNER [address] [place] [address] [facility] MANAGEMENT ANALYST Oncology Start: 10-14-2022 Influenza vaccination LUNG CANCER SC REENING [facility] Start: 10-14-2022 Screening for malign ant neoplasm of lung Lung Cancer Screening [facility] Start: 09-17-2022 Influenza vaccination INFLUENZA (#1) [facility] Comment on above: Postponed from 11/19 (Declined at this time) Start: 08-17-2022 End: 10-17-2022 Lipid 1996 panel - Serum or Plasma LIPID PANEL BASIC Lab Routine Medication management Expected: 08/17/2022, Expires: 10/17/2022 [facility] Work Phone: Comment on above: Expected: 08/17/2022 , Expires: 10/17/2022 Start: 08-06-2022 ANNUAL PCP TEAM MANAGER OF WAREHOUSE [place] DISEASE VISIT ANNUAL PCP TEAM CHRONIC DISEASE VISIT [facility] Start: 05-06-2022 ANNUAL PCP TEAM MANAGER OF WAREHOUSE [place] DISEASE VISIT ANNUAL PCP TEAM CHRONIC DISEASE VISIT [facility] Start: 03-21-2022 ADVANCE DIRECTIVE DISCUSSION ADVANCE DIRECTIVE DISCUSSION [facility] Start: 03-17-2022 End: 03-17-2022 Patient encounter procedure 03/17/2022 Office Visit Gynecologic Oncology Ziyad Menendez MD [address] [place] [address] [facility] MANAGEMENT ANALYST Oncology Start: 03-11-2022 Pneumococcal 0-64 ye ars Vaccine (2 of 2 - PPSV23) Pneumococcal 0-64 years Vaccine (2 of 2 - PPSV23) [facility] Work Phone: Start: 03-11-2022 Pneumococcal 0-64 ye ars Vaccine (2 of 4 - PPSV23) Pneumococcal 0-64 years Vaccine (2 of 4 - PPSV23) [facility] Work Phone: Start: 02-16-2022 End: 04-18-2022 CBC panel - Blood by Automated count CBC Lab Routine Medication management Expected: 02/16/2022, Expires: 04/18/2022 [facility] Work Phone: Comment on above: Expected: 02/16/2022 , Expires: 04/18/2022 Start: 02-16-2022 End: 04-18-2022 SCHEDULE LAB TESTING SCHEDULE LAB TESTING Lab Routine Expected: 02/16/2022, Expires: 04/18/2022 [facility] Work Phone: Comment on above: Expected: 02/16/2022 , Expires: 04/18/2022 Start: 12-26-2021 Influenza vaccination LUNG CANCER SC REENING [facility] Start: 12-09-2021 End: 12-09-2021 Patient encounter procedure 12/09/2021 Appointment Infusion Therapy [facility] Start: 2021 ADVANCE DIRECTIVE DISCUSSION ADVANCE DIRECTIVE DISCUSSION [facility] Start: 2021 BONE DENSITY BONE DENSITY [facility] Start: 2021 Bone Density Screening Bone Density Screening [facility] Start: 2021 Influenza vaccination [facility] Start: 2021 Screening for osteoporosis Bone Density Screening [facility] Start: 10-27-2021 End: 12-27-2021 CBC panel - Blood by Automated count CBC Lab Routine Medication management Expected: 10/27/2021, Expires: 12/27/2021 [facility] Work Phone: Comment on above: Expected: 10/27/2021 , Expires: 12/27/2021 Start: 10-27-2021 End: 12-27-2021 SCHEDULE LAB TESTING SCHEDULE LAB TESTING Lab Routine Expected: 10/27/2021, Expires: 12/27/2021 [facility] Work Phone: Comment on above: Expected: 10/27/2021 , Expires: 12/27/2021 Start: 09-24-2021 Screening for malign ant neoplasm of lung Low dose CT lung screening [facility] Work Phone: Start: 09-15-2021 COLORECTAL CANCER SCREENING COLORECTAL CANCER SCREENING [facility] Comment on above: Postponed from 11/19 (Declined at this time) Start: 09-15-2021 COVID-19 VACCINE (#1) COVID-19 VACCI NE (#1) [facility] Comment on above: Postponed from 11/19 (Declined at this time) Start: 09-15-2021 COVID-19 VACCINE (1) COVID-19 VACCIN E (1) [facility] Comment on above: Postponed from 11/19 (Declined at this time) Start: 09-15-2021 SHINGRIX VACCINE (2 of 2) SHINGRIX VACCINE (2 of 2) [facility] Comment on above: Postponed from 12/05 (Declined at this time) Start: 08-06-2021 End: 10-06-2021 CBC W Auto Differential panel - Blood CBC + DIFF Lab Routine Panlobular emphysema (HCC) Chronic respiratory failure with hypoxia (HCC) Expected: 08/06/2021, Expires: 10/06/2021 [facility] Work Phone: Comment on above: Expected: 08/06/2021 , Expires: 10/06/2021 Start: 08-06-2021 End: 10-06-2021 Comprehensive metabolic 2000 panel - Serum or Plasma COMP METABOLIC PANEL Lab Routine Panlobular emphysema (HCC) Chronic respiratory failure with hypoxia (HCC) Expected: 08/06/2021, Expires: 10/06/2021 [facility] Work Phone: Comment on above: Expected: 08/06/2021 , Expires: 10/06/2021 Start: 08-06-2021 End: 10-06-2021 LIPID PANEL BASIC LIPID PANEL BASIC Lab Routine Screening for lipid disorders Expected: 08/06/2021, Expires: 10/06/2021 [facility] Work Phone: Comment on above: Expected: 08/06/2021 , Expires: 10/06/2021 Start: 08-06-2021 End: 10-06-2021 PAIN PANEL, UR QUANT PAIN PANEL, UR QUANT Lab Routine Medication monitoring encounter Expected: 08/06/2021, Expires: 10/06/2021 [facility] Work Phone: Comment on above: Expected: 08/06/2021 , Expires: 10/06/2021 Start: 08-06-2021 End: 10-06-2021 VITAMIN D 25 HYDROXY VITAMIN D 25 HYDROXY Lab Routine Vitamin D deficiency Expected: 08/06/2021, Expires: 10/06/2021 [facility] Work Phone: Comment on above: Expected: 08/06/2021 , Expires: 10/06/2021 Start: 06-06-2021 Screening for malign ant neoplasm of lung Low dose CT lung screening [facility] Work Phone: Start: 02-06-2021 End: 02-06-2021 Patient encounter procedure 02/06/2021 Appointment Infusion Therapy [facility] Start: 11-23-2020 [facility] Start: 11-21-2020 Lipid panel [facility] Start: 2020 Influenza vaccination Flu vaccine (# 1) [facility] Work Phone: Start: 10-13-2020 End: 10-13-2020 Office Visit [facility] MANAGEMENT ANALYST Oncology Start: 08-08-2020 End: 08-08-2020 Appointment 08/08/2020 Appointment Infusion Therapy [facility] Start: 07-01-2020 End: 07-01-2020 Telemedicine 07/01/2020 Telemedicine Cardiology Nell Padilla MD [address] [address] [phone] [facility] Start: 06-13-2020 End: 06-13-2020 Appointment 06/13/2020 Appointment Infusion Therapy [facility] Start: 06-09-2020 End: 06-09-2020 Office Visit 06/09/2020 Office Visit Gynecologic Oncology Ziyad Menendez MD [address] [facility] [place] [address] [phone] [facility] MANAGEMENT ANALYST Oncology Start: 04-15-2020 [facility] Start: 03-28-2020 End: 03-28-2020 Virtual Visit 03/28/2020 Virtual Visit Palliative Care David Pollack, [address] [facility] [address] [place] [id number] [facility] Start: 03-17-2020 End: 03-17-2020 Office Visit [facility] MANAGEMENT ANALYST Oncology Comment on above: 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) Start: 03-10-2020 End: 03-10-2020 Appointment 03/10/[address] [facility] [address] Scan Start: 02-22-2020 End: 02-22-2020 Appointment [facility] Start: 02-21-2020 End: 02-21-2020 Office Visit [facility] MANAGEMENT ANALYST Oncology Start: 02-08-2020 End: 02-08-2020 Appointment [facility] Start: 02-07-2020 End: 02-07-2020 Appointment 02/07/2020 Appointment Infusion Therapy [facility] Start: 02-01-2020 End: 02-01-2020 Appointment [facility] Start: 01-31-2020 End: 01-31-2020 Appointment [facility] Start: 01-25-2020 End: 01-25-2020 Appointment [facility] Start: 01-24-2020 End: 01-24-2020 Appointment 01/24/2020 Appointment Infusion Therapy [facility] Start: 01-18-2020 End: 01-18-2020 Appointment 01/18/2020 Appointment Infusion Therapy [facility] Start: 01-17-2020 End: 01-17-2020 Appointment [facility] Start: 12-13-2019 End: 12-13-2019 Office Visit 12/13/2019 Office Visit Gynecologic Oncology Ziyad Menendez MD [address] [place] [address] [phone] [facility] MANAGEMENT ANALYST Oncology Start: 12-07-2019 End: 12-07-2019 Office Visit 12/07/2019 Office Visit Gynecologic Oncology Ziyad Menendez MD [address] [facility] [address] [place] [address] [facility] MANAGEMENT ANALYST Oncology Start: 12-06-2019 Shingles Vaccine (2 of 2) Shingles Vaccine (2 of 2) [facility] Start: 12-06-2019 SHINGRIX VACCINE (2 of 2) SHINGRIX VACCINE (2 of 2) [facility] Start: 12-06-2019 Zoster Vaccines (2 of 2) Zoster Vacc otto (2 of 2) [facility] Start: 11-22-2019 End: 11-22-2019 Office Visit 11/22/2019 Office Visit Gynecologic Oncology Ziyad Menendez MD [address], [address] [place], [place] [id number] [facility] MANAGEMENT ANALYST Oncology Start: 11-20-2019 Influenza vaccination Flu vaccine (# 1) [place], [place] Start: 11-09-2019 End: 11-08-2020 US Lower Extremity Venous Right US Lower Extremity Venous Right Imaging Routine Leg swelling Expected: 11/09/2019, Expires: 11/08/2020 [place], [place] Comment on above: Expected: 11/09/2019 , Expires: 11/08/2020 Start: 11-06-2019 End: 11-06-2019 Appointment [facility] Start: 10-30-2019 End: 10-30-2019 Appointment 10/30/2019 Appointment Pre-Admission Testing Ziyad Menendez MD [address] [place], [place] [id number] [facility] Pre-Admit Testing Start: 10-25-2019 Annual Wellness Visi t (AWV) Annual Wellness Visit (AWV) [place], [place] Start: 10-25-2019 End: 10-25-2019 Office Visit 10/25/2019 Office Visit Gynecologic Oncology Ziyad Menendez MD [address] [facility] [address] [place], [place] [id number] [facility] MANAGEMENT ANALYST Oncology Start: 10-18-2019 Screening for malign ant neoplasm of lung Low dose CT lung screening [place], [place] Start: 08-27-2019 Screening for malign ant neoplasm of breast Breast cancer screen [facility] Start: 12-10-2018 Screening for osteoporosis Bone Density Scan [facility] Start: 08-26-2018 Screening for malign ant neoplasm of breast [facility] Start: 03-11-2018 PNEUMOCOCCAL (2 - PCV) PNEUMOCOCCAL (2 - PCV) [facility] Start: 03-11-2018 Pneumococcal 0-64 ye ars Vaccine (2 - PCV) Pneumococcal 0-64 years Vaccine (2 - PCV) [facility] Start: 03-11-2018 Pneumococcal Vaccine : 50+ Years (2 of 2 - PCV) Pneumococcal Vaccine: 50+ Years (2 of 2 - PCV) [facility] Start: 03-11-2018 Pneumococcal Vaccine : 65+ (2 - PCV) Pneumococcal Vaccine: 65+ (2 - PCV) [facility] Start: 03-11-2018 Pneumococcal Vaccine : 65+ Years (2 - PCV) Pneumococcal Vaccine: 65+ Years (2 - PCV) [facility] Start: 03-11-2018 Pneumococcal Vaccine : 65+ Years (2 of 2 - PCV) Pneumococcal Vaccine: 65+ Years (2 of 2 - PCV) [facility] Start: 03-11-2018 PNEUMOCOCCAL: 65+ (2 - PCV) PNEUMOCOCCAL: 65+ (2 - PCV) [facility] Start: 2016 RSV Immunization age d 60 or older (1 - 1-dose 60+ series) RSV Immunization aged 60 or older (1 - 1-dose 60+ series) [facility] Start: 2016 RSV Immunization for Adults (1 - Risk 60-74 years 1-dose series) RSV Immunization for Adults (1 - Risk 60-74 years 1-dose series) [facility] Start: 2016 RSV Vaccine (1 - 1-d ose 60+ series) RSV Vaccine (1 - 1-dose 60+ series) [facility] Start: 2016 RSV Vaccine (1 - Ris k 60-74 years 1-dose series) RSV Vaccine (1 - Risk 60-74 years 1-dose series) [facility] Start: 04-15-2016 Lipid panel Lipid screen [place], [place] Start: 2006 Screening for malign ant neoplasm of colon Colon cancer screen colonoscopy [place], [place] Start: 2006 Screening for malign ant neoplasm of lung Low dose CT lung screening [facility] Start: 2006 Shingles Vaccine (1 of 2) Shingles Vaccine (1 of 2) [place], [place] Start: 2001 COLOGUARD (FIT-DNA) COLOGUARD (FIT-D NA) [facility] Start: 2001 Colonoscopy COLONOSCOPY [facility] Start: 2001 COLORECTAL CANCER SCREENING COLORECTAL CANCER SCREENING [facility] Start: [address] [facility] Start: 2001 FECAL OCCULT BLOOD FECAL OCCULT BLOO D [facility] Start: 2001 Screening for malign ant neoplasm of colon [facility] Start: 2001 SIGMOIDOSCOPY SIGMOIDOSCOPY [facility] Start: 1996 Mammography [facility] Start: 1996 Screening for malign ant neoplasm of breast [facility] Start: 1986 Screening for malign ant neoplasm of cervix [facility] Start: 1986 Zoledronic acid therapy ALPHA- 1 ANTITRYPSIN DEFICIENCY SCREENING [facility] Start: 1977 Screening for malign ant neoplasm of cervix [place], [place] Start: 1974 Hepatitis C screening Hepatitis C [facility] Start: 1972 COVID-19 Vaccine (1) COVID-19 Vaccin e (1) [facility] Work Phone: Start: 1968 COVID-19 Vaccine (1) COVID-19 Vaccin e (1) [facility] Work Phone: Start: 1968 Depression Monitoring Depression Mon itoring [facility] Start: 1968 Depresssion Monitoring Depresssion M onitoring [facility] Start: 1961 COVID-19 Vaccine (#1) COVID-19 Vacci ne (#1) [facility] Start: 05-19-1957 COVID-19 VACCINE (#1) COVID-19 VACCI NE (#1) [facility] Start: 1956 Annual wellness visit Medicare Initial Physical (IPPE) [facility] Start: 1956 Annual Wellness Visi t (AWV) Annual Wellness Visit (AWV) [facility] Start: 1956 Hepatitis B Vaccines (1 of 3 - 3-dose series) Hepatitis B Vaccines (1 of 3 - 3-dose series) [facility] Start: 1956 Medicare Advantage Annual Wellness Visit (AWV) Medicare Advantage Annual Wellness Visit (AWV) [facility] Start: 1956 Screening for malign ant neoplasm of colon [facility] Start: 1956 Screening for osteoporosis Bone Density Scan [facility] Bacteria identified in Blood by Culture [facility] Work Phone: Basic metabolic 2000 panel Basic Metabolic Panel Lab Routine Daily until discontinued starting 08/04/2019, 1 completed [facility] [place] Comment on above: Daily until disconti nued starting 08/04/2019, 1 completed Basic Metabolic Pane l w/ Reflex to MG Basic Metabolic Panel w/ Reflex to MG Lab Routine Daily until discontinued starting 11/23/2019, 2 completed [facility], [place] Comment on above: Daily until disconti nued starting 11/23/2019, 2 completed CBC Auto Differential [place], [place] Comment on above: Daily until disconti nued starting 08/04/2019, 1 completed Daily until disconti nued starting 11/23/2019, 2 completed End: 02-01-2020 CBC Auto Differential CBC Auto Differential Lab Routine Malignant neoplasm of exocervix (HCC) 1 Occurrences starting 02/01/2020 until 02/01/2020 [place] Comment on above: 1 Occurrences starti ng 02/01/2020 until 02/01/2020 COLOGUARD COLOGUARD Lab Ro utine Screening for colon cancer Ordered: 09/15/2022 [facility] Work Phone: Comment on above: Ordered: 09/15/2022 End: 02-01-2020 Comprehensive metabolic 2000 panel Comprehensive Metabolic Panel Lab Routine Malignant neoplasm of exocervix (HCC) 1 Occurrences starting 02/01/2020 until 02/01/2020 [place], [place] Comment on above: 1 Occurrences starti ng 02/01/2020 until 02/01/2020 End: 03-16-2020 COVID-19 COVID-19 Lab STAT One Time for 1 Occurrences starting 03/16/2020 until 03/16/2020 [facility] [place] Comment on above: One Time for 1 Occur rences starting 03/16/2020 until 03/16/2020 COVID-19 COVID-19 Lab STA T 03/16/2020 1:18 PM EST [place], [place] End: 06-09-2020 Creatinine [Mass/Vol] Creatinine, Serum Lab Routine Malignant neoplasm of exocervix (HCC) 1 Occurrences starting 06/09/2020 until 06/09/2020 [facility] Work Phone: Comment on above: 1 Occurrences starti ng 06/09/2020 until 06/09/2020 End: 03-10-2020 CT CHEST ABDOMEN PELVIS W CONTRAST CT CHEST ABDOMEN PELVIS W CONTRAST Imaging Routine Malignant neoplasm of exocervix (HCC) Lung nodule seen on imaging study 1 Occurrences starting 03/10/2020 until 03/10/2020 [place] Comment on above: 1 Occurrences starti ng 03/10/2020 until 03/10/2020 CT CHEST ABDOMEN PEL VIS W CONTRAST CT CHEST ABDOMEN PELVIS W CONTRAST Imaging Routine Malignant neoplasm of exocervix (HCC) Lung nodule seen on imaging study 03/10/2020 1:23 PM EST [place], [place] End: 06-06-2020 CT Chest W Contrast [...] starting 10/14/2021 until 10/14/2021 Culture, Blood [facility] [place] [place] End: 03-16-2020 Culture, Blood 1 Culture, Blood 1 Microbiology STAT One Time for 1 Occurrences starting 03/16/2020 until 03/16/2020 [place] Comment on above: One Time for 1 Occur rences starting 03/16/2020 until 03/16/2020 Culture, Blood 2 [facility] [place] [place] End: 03-16-2020 Culture, Blood 2 Culture, Blood 2 Microbiology STAT One Time for 1 Occurrences starting 03/16/2020 until 03/16/2020 [place] Comment on above: One Time for 1 Occur rences starting 03/16/2020 until 03/16/2020 Culture, Respiratory Culture, Re spiratory Microbiology Routine 08/02/2019 11:55 PM EDT [place] Cytology Cervical or vaginal smear or scraping study Pap Smear Pathology and Cytology Routine Malignant neoplasm of exocervix (HCC) 10/20/2022 2:32 PM EDT [facility] End: 06-21-2025 DBT Breast - bilateral screening PAOLO SCREENING [facility] Radiology Routine Encounter for screening mammogram for breast cancer 1 Occurrences starting 05/22/2024 until 06/21/2025 [facility] Work Phone: Comment on above: 1 Occurrences starti ng 05/22/2024 until 06/21/2025 ECG 12 lead ECG 12 lead CV E CG STAT 05/21/2022 5:47 AM [facility] Work Phone: ECG 12 lead ECG 12 lead CV E CG STAT 04/27/2024 11:57 PM [facility] Work Phone: EKG 12 Lead - Chest Pain [place], [place] End: 08-04-2019 Home O2 eval (desaturation screen) Home O2 eval (desaturation screen) Respiratory Care Routine One Time for 1 Occurrences starting 08/04/2019 until 08/04/2019 [place] Comment on above: One Time for 1 Occur rences starting 08/04/2019 until 08/04/2019 HPV High Risk PCR HPV High Risk PCR Microbiology Routine Malignant neoplasm of exocervix (HCC) 10/20/2022 2:32 PM T [facility] End: 02-01-2020 Magnesium [Mass/Vol] Magnesium Lab Routine Malignant neoplasm of exocervix (HCC) 1 Occurrences starting 02/01/2020 until 02/01/2020 [place] Comment on above: 1 Occurrences starti ng 02/01/2020 until 02/01/2020 End: 08-13-2023 PAOLO SCREENING PAOLO SCREENING Radiology Routine Encounter for screening mammogram for breast cancer 1 Occurrences starting 07/14/2022 until 08/13/2023 [facility] Work Phone: Comment on above: 1 Occurrences starti ng 07/14/2022 until 08/13/2023 End: 09-05-2022 PAOLO SCREENING [facility] PAOLO SCREENING [facility] Radiology Routine Encounter for screening mammogram for malignant neoplasm of breast 1 Occurrences starting 08/06/2021 until 09/05/2022 [facility] Work Phone: Comment on above: 1 Occurrences starti ng 08/06/2021 until 09/05/2022 MDI Treatment MDI Treatment Respiratory Care Routine Every 6hr As Needed until discontinued starting 08/02/2019 [facility] Comment on above: Every 6hr As Needed until discontinued starting 08/02/2019 End: 07-21-2024 MG Breast Screening PAOLO SCREENING Radiology Routine Encounter for screening mammogram for breast cancer 1 Occurrences starting 06/22/2023 until 07/21/2024 [facility] Work Phone: Comment on above: 1 Occurrences starti ng 06/22/2023 until 07/21/2024 Nebulizer therapy HHN Treatment Respiratory Care Routine 0600, 1000, 1400, 1800, 2200 until discontinued starting 03/16/2020, 6 completed [facility] Comment on above: 0600, 1000, 1400, 18 00, 2200 until discontinued starting 03/16/2020, 6 completed Oxygen therapy [[facility]] [facility] Comment on above: Daily until disconti nued starting 11/21/2019, 2 completed Daily until disconti nued starting 11/21/2019 PAIN PANEL, UR QUANT PAIN PANEL, UR QUANT Lab Routine Medication monitoring encounter 05/02/2023 3:12 PM EST [facility] Work Phone: End: 08-02-2019 Respiratory Virus PCR Panel Respiratory Virus PCR Panel Microbiology Add-On One Time for 1 Occurrences starting 08/02/2019 until 08/02/2019 [facility] Comment on above: One Time for 1 Occur rences starting 08/02/2019 until 08/02/2019 SPECIMEN VALIDITY, URINE SPECIME N VALIDITY, URINE Lab Routine Medication monitoring encounter 05/02/2023 3:12 PM EST [facility] Work Phone: End: 06-09-2020 Urea nitrogen [Mass/Vol] BUN Lab Routine Malignant neoplasm of exocervix (HCC) 1 Occurrences starting 06/09/2020 until 06/09/2020 [facility] Work Phone: Comment on above: 1 Occurrences starti ng 06/09/2020 until 06/09/2020 End: 10-27-2019 Urinalysis Urinalysis Lab STAT One Time for 1 Occurrences starting 10/27/2019 until 10/27/2019 [place] Comment on above: One Time for 1 Occur rences starting 10/27/2019 until 10/27/2019 End: 11-10-2019 US Lower Extremity Venous Right US Lower Extremity Venous Right Imaging Routine Leg swelling 1 Occurrences starting 11/10/2019 until 11/10/2019 [place] Comment on above: 1 Occurrences starti ng 11/10/2019 until 11/10/2019 US Lower Extremity Venous Right US Lower Extremity Venous Right Imaging Routine Leg swelling 11/10/2019 6:00 PM EDT [facility] Immunizations Immunization Date Immunization Notes Care Provider [facility] 01-14-2023 pneumococcal Conjuga te, unspecified formulation Herminia Case MD Work Phone: [facility] Work Phone: 01-14-2023 pneumococcal (PCV20) vaccine, 20 valent (PREVNAR 20) Herminia Case MD Work Phone: [facility] 10-11-2019 zoster vaccine recombinant Melva Sandoval PA-C Work Phone: [facility] 12-07-2018 influenza, injectabl e, quadrivalent, contains preservative Melva Sandoval PA-C Work Phone: [facility] 12-07-2018 influenza virus vaccine, unspecified formulation 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 - [employer] Work Phone: [facility] 01-10-2018 influenza nasal, unspecified formulation Herminia Case MD Work Phone: [facility] 01-10-2018 influenza virus vaccine, unspecified formulation Joaniemartir Johnson [facility] 01-10-2018 influenza, seasonal, injectable Melva Proctor PA-C Work Phone: [facility] [facility] 03[facility]2017 pneumococcal polysaccharide vaccine, 23 valent Melva Proctor PA-C Work Phone: [facility] Work Phone: 02-15-2017 influenza, injectabl e, quadrivalent, preservative free Melva Proctor PA-C Work Phone: [facility] 08-08-2016 tetanus toxoid, redu manjula diphtheria toxoid, and acellular pertussis vaccine, adsorbed [facility] Work Phone: 02-10-2013 influenza, seasonal, injectable, preservative free Melva Ladonna PA-C Work Phone: [facility] 02-15-2012 influenza, seasonal, injectable, preservative free Melva Proctor PA-C Work Phone: [facility] NEGATED: Highlighted row has not occurred!05-22-2022 Influenza,seasonal,sout radha Hemisphere,quad,preserv Free Martha Flores MD Work Phone: [facility] Comment on above: Deferred: Patient Re fused Payers Date Payer Category Payer Self-pay 2022 Medicare (Managed Care) [facility] DUAL COMPLETE HMO POS SNP [id number] 2022 Medicare O [facility] DUAL COMPLET E [id number] 2022 Formerly [facility] [id number] 2021 Medicare HUMANA MEDICARE HUMANA GOLD PLUS [id number] 2021-Present [phone] [address] [address] [place] [address] O [id number] 2021 Medicare HUMANA MEDICARE HUMANA GOLD PLUS O [id number] 2021-Present [phone] [address] [place] [address] [id number] 2019 Medicaid [id number] 2019 Medicaid [id number] 2019 Medicare MEDICARE MEDICAR E PART A AND B [id number] 2019-Present [phone] [place] [address] [id number] 2019 Medicare [id number] 2014 Unknown [facility] xxxxxxxxxxxx 2014-Present [phone] [address] [place] [address] xxxxxxxxxxxx [id number] 2014 Unknown [id number] 1955 Unknown [id number] .668 1955 Unknown [id number] .668 1955 Unknown [id number] .668 1955 Unknown [id number] .668 1955 Unknown [id number] .668 Private Health Insurance Unknown [id number] Unknown [id number] [id number] [id number] Unknown [id number] .462 Unknown [id number] [id number] .462 Unknown [id number] [id number] Unknown [id number] Social History Date Type Detail Facility Start: 08-02-2019 End: 07-31-2024 Tobacco smoking status NHIS Former smoker [facility] Start: 03-21-1971 End: 03-21-2017 History of tobacco use Current smoker [facility] [employer] [facility] RONQUILLO Start: 03-21-1971 End: 03-21-2017 History of tobacco use Cigarette Smoker [facility] [employer] [facility] Start: 08-02-2019 End: 07-31-2024 Cigarettes smoked current (pack per day) - Reported [facility] Start: 08-02-2019 End: 10-20-2020 Alcohol intake [facility] [employer] [facility] Start: 10-19-2017 Alcohol Comment very rarely [facility] [employer] Start: 1955 Sex Assigned At Not on file [facility] Exposure to SARS-CoV -2 (event) Unable to assess [facility] Start: 10-21-2019 End: 07-31-2024 Tobacco use and exposure Never [facility] Start: 07-27-2021 End: 11-06-2022 Exposure to SARS-CoV-2 (event) Not sure [facility] Start: 11-05-2019 Alcohol Comment 1-2 times/yr [facility] [employer] [facility]ONQUILLO Start: 11-21-2019 Tobacco Comment pt states she quit 4-5 years ago [facility] Start: 11-28-2020 End: 12-30-2023 Alcohol intake Current non-drinker of alcohol (finding) [facility] Start: 05-06-2021 End: 05-21-2022 History SDOH Alcohol Frequency 2 [facility] Start: 05-06-2021 End: 05-21-2022 History SDOH Alcohol Std Drinks 1 [facility] Start: 05-06-2021 History SDOH Social Connections Phone 5 [facility] Start: 05-06-2021 End: 03-05-2022 History SDOH Social Connections Get Together 4 [facility] Start: 05-06-2021 End: 03-05-2022 History SDOH Social Connections Meetings 98 [facility] Start: 05-06-2021 End: 03-05-2022 History SDOH Social Connections Living 3 [facility] Start: 05-06-2021 End: 05-21-2022 History SDOH Physical Activity DPW 0 [facility] Start: 07-11-2018 End: 09-15-2022 Tobacco Comment vaping intermittently [facility] Start: 03-05-2022 End: 07-31-2024 Social connection and isolation panel [facility] Do you belong to any clubs or organizations such as mormon groups, unions, fraternal or athletic groups, or school groups? No [facility] How often do you att end meetings of the clubs or organizations you belong to? Patient refused [facility] Are you now , , , , never or living with a partner? [facility] How often to you hav e a drink containing alcohol? Never [facility] How hard is it for y ou to pay for the very basics like food, housing, medical care, and heating Not very hard [facility] Do you feel stress - tense, restless, nervous, or anxious, or unable to sleep at night because your mind is troubled all the time - these days [OSQ] To some extent [facility] (I/We) worried jeannie er (my/our) food would run out before (I/we) got money to buy more. Never true [facility] The food that (I/we) bought just didn't last, and (I/we) didn't have money to get more. DK or Refused [facility] Start: 04-26-2021 Gender identity Identifies as female gender (finding) [facility] Start: 04-26-2021 Sexual orientation Heterosexual (finding) [facility] Start: 05-21-2022 End: 08-20-2024 Alcohol intake Ex-drinker (finding) [facility] Start: 05-21-2022 Alcohol Comment Approx once a year [facility] Are you now , , , , never or living with a partner? [facility] Do you feel stress - tense, restless, nervous, or anxious, or unable to sleep at night because your mind is troubled all the time - these days [OSQ] Only a little [facility] Start: 10-19-2021 Sex Female (finding) [facility] History of tobacco use Passive smoker [facility] How often do you nee d to have someone help you when you read instructions, pamphlets, or other written material from your doctor or pharmacy [SILS] Rarely [facility] Medical Equipment Procedure Code Equipment Code Equipment Origin al Text Equipment Identifier Dates Kylee Power Port-12/19/2019 [id number] Start: 12-19-2019 Comment on above: Description: Kylee Barrow ower Port Left Chest Regular Size. Screw Josie 7.3x85mm 16mm-Thrd - [id number] Start: 11-07-2022 Screw Josie 7.3x85mm 16mm-Thrd - [id number] Start: 11-07-2022 Functional Status Date Assessment Result Facility 06-06-2024 Total score [AUDIT-C] 0 06/07/19 9:46 AM EDT User, Na [facility] 06-06-2024 Within the last year , have you been humiliated or emotionally abused in other ways by your partner or ex-partner? No 06/06/2024 9:46 AM EDT User, Charliet No [facility] 06-06-2024 Within the last year , have you been afraid of your partner or ex-partner? No 06/06/2024 9:46 AM EDT User, Charliet No [facility] 06-06-2024 Within the last year , have you been raped or forced to have any kind of sexual activity by your partner or ex-partner? No 06/06/2024 9:46 AM EDT User, Heliohart No [facility] 06-06-2024 Within the last year , have you been kicked, hit, slapped, or otherwise physically hurt by your partner or ex-partner? No 06/06/2024 9:46 AM EDT User, Heliohart No [facility] 06-06-2024 How often to you hav e a drink containing alcohol? Never 06/06/2024 9:46 AM EDT User, Mychart Never [facility] 06-06-2024 Functional status Patient does n ot drink 06/06/2024 9:46 AM EDT User, Charliet Patient does not drink [facility] 06-06-2024 How often do you hav e 6 or more drinks on 1 occasion? Never 06/06/2024 9:46 AM EDT User, Charliet Never [facility] Clinical Notes 09-24-2020 to 09-10-2024 Telephone Encounter [...] Weathers MA September 10, 2024 9:01 AM [facility] 09-10-2024 Miscellaneous Notes Prescription Refill Information [...] 2024 9:01 AM documented in this encounter [facility] 09-07-2024 Telephone encounter Note Spoke to Nilesh from [facility] and scheduled patient for a follow up on 09/24@10am. Patient has not been seen for quite a while and also is requesting port removal to be scheduled. [facility] 09-07-2024 Miscellaneous Notes Spoke to Nilesh from [facility] and scheduled patient for a follow up on 09/24@10am. Patient has not been seen for quite a while and also is requesting port removal to be scheduled. Nilesh from [facility] pt's port was flushed but there was no blood draw back. Patient requested for the port to be removed due to not being used for roughly 1 year. Please contact Nilesh with further questions at [phone] documented in this encounter [facility] 09-07-2024 Telephone encounter Note Nilesh from [facility] states pt's port was flushed but there was no blood draw back. Patient requested for the port to be removed due to not being used for roughly 1 year. Please contact Nilesh with further questions at [phone] [facility] 09-06-2024 History of Presen t illness Narrative [...] All questions answered. documented in this encounter [facility] 09-03-2024 Telephone encounter Note Noted. Melva Juárez PA-C [facility] 09-03-2024 Miscellaneous Notes Noted. Melva Juárez PA-C Patient returned call and LVM. Called and spoke with patient Patient was admitted to hospital and recently discharged to a SN, patient's daughter had submitted request in anticipation of discharge. [facility] is currently managing medications, no longer in [...] 2024 2:19 PM documented in this encounter [facility] 09-03-2024 Telephone encounter Note Patient returned call and LVM. Called and spoke with patient Patient was admitted to hospital and recently discharged to a SN, patient's daughter had submitted request in anticipation of discharge. [facility] is currently managing medications, no longer in need Unsure of anticipated discharge, and if it will be to assisted living or back to home. Will plan to keep office aware. [facility] 08-29-2024 Telephone encounter Note Called patient, no answer at this time. Left voicemail to call the office back. [facility] 08-28-2024 Telephone encounter Note Patient had 30 pills filled on on 08/22. Is she following up with a different provider for prescriptions? [facility] 08-22-2024 Telephone encounter Note Prescription Refill [...] Weathers MA August 22, 2024 2:19 PM [facility] 08-20-2024 Telephone encounter Note Prescription Refill [...] Parks LPN August 20, 2024 11:39 AM [facility] 08-20-2024 Miscellaneous Notes Prescription Refill Information [...] 2024 11:39 AM documented in this encounter [facility] 08-20-2024 History of Presen t illness Narrative Images from the original note were not included. [facility] [address] [place] [address] Date of Service: 08/20/2024 Visit type: An Established patient Chief Complaint/Reason for Referral: Hospital Follow-up (COPD,PSA/MSSA/STREP LRTI/ESTABLISH PULM OUTPATIENT...) SUBJECTIVE History of Present Illness: Gonzalo Deluca ( 1955) is a 68 y.o. female patient, with significant PMH of COPD, emphysema, chronic respiratory failure 3L, pulmonary nodule, sciatica, and tobacco use being seen for pulmonary hospital follow up Admitted [facility] 07/30/2024 - 08/08/2024 pulmonology was consulted for triple bacterial pneumonia, treated for pseudomona, moraxella and Streptoccus, on top of severe pneumonia, with increased oxygen requirements and chronic respiratory failure. Failure to thrive. Chronic resp failure with severe emphysema, 3L baseline O2. Treated with Dulera, Spiriva. Reports significant weight loss of 40 lbs over the past few months. Currently at [facility], group home. Presents today with son, states breathing is better than before the hospital. Wearing 3L supplemental continuous oxygen today. SpO2 is 92%, does not appear distressed. Staying at [facility] for group home and has been beneficial. Follows with palliative care for dyspnea, taking oxycodone and has been helping. Reports has gained some weight since breathing has improved and being at group home facility. Expressed to keep up whatever it [...] 36 C (96.8 F) (Temporal) Ht 5' 4 (1.626 m) Wt 93 lb 3.2 oz [...] prednisone taper. Wearing 3L O2 at baseline. MCFP currently 2. Acute on chronic respiratory failure [...] at this time 7. Severe malnutrition (CMS/HCC) ([facility]) - pulmonary cachexia; palliative following and treating dyspnea with benefits - trying to gain weight since breathing has improved - eating what medical information officer has recommended while at group home facility FOLLOW UP: Follow up in about [...] Chest pain COPD (chronic obstructive pulmonary disease) ([facility]) USE OXYGEN 3 L AT NIGHT DDD (degenerative disc disease), cervical Defect, retina, with detachment right DJD (degenerative joint disease), lumbar Emphysema lung (HCC) Former smoker Hematuria SCHEDULED FOR THE PROCEDURE /SURGERY ON 02/11/2017 Hypokalemia Lung nodules Near syncope 09/19/2023 Osteoporosis Palpitations Pneumonia Recurrent major depression (HCC) Sciatica Thoracic compression fracture ([facility]) Vitamin D deficiency [2] Past Surgical [...] cancer Neg Hx documented in this encounter [facility] 08-20-2024 Instructions Rosalee Marvin - 08/20/2024 10:30 AM EDT YOUR APPOINTMENT TODAY WAS WITH THE [facility] LUNG NODULE CLINIC, COPD CLINIC, PULMONARY AND SLEEP MEDICINE OFFICE. PLEASE CALL OUR OFFICE AT [phone] for our [place] office location or [phone] for our [place] location, IF YOU HAVE NOT RECEIVED YOUR [...] to make improvements. COVID-19 VACCINATION INFORMATION: PH. [phone] HEALTH.ORG/CORONAVIRUS/VACCINE [facility] Central Scheduling [phone] [facility] Sleep Scheduling [phone] documented in this encounter [facility] 08-14-2024 Telephone encounter Note Prescription Refill Information [...] Weathers MA August 14, 2024 10:39 AM [facility] 08-14-2024 Miscellaneous Notes Prescription Refill Information [...] 2024 10:39 AM documented in this encounter [facility] 08-08-2024 Nurse Note Called report to [facility]. Pickup scheduled for 3:30pm. [facility] 08-08-2024 Nurse Note Called report to [facility]. Pickup scheduled for 3:30pm. Wound Care consulted for Pressure Injury Prevention. Pt's Jeri score= 17 on 08/08 Pt's pressure points assessed. Pt stood independently for posterior assessment. Pt's Heels, Buttocks/coccyx, Back, Right elbow, Occiput and ears all intact. Cast in place to left upper extremity. [place] and healed area noted to coccyx. [place] and blanchable tissues noted to bilateral heels. [...] Rosalina Cross RN documented in this encounter [facility] 08-08-2024 History of Presen t illness Narrative Pt has been seen by palliative care during this hospital admission. Provider suggested referral to outside pall care provider at [facility]. Referral sent to [facility], faxed to [phone] documented in this encounter [facility] 08-08-2024 Note Pt has been seen by palliative care during this hospital admission. Provider suggested referral to outside pall care provider at [facility]. Referral sent to [facility], faxed to [phone] [facility] 08-08-2024 Nurse Note Wound Care consulted for Pressure Injury Prevention. Pt's Jeri score= 17 on 08/08 Pt's pressure points assessed. Pt stood independently for posterior assessment. Pt's Heels, Buttocks/coccyx, Back, Right elbow, Occiput and ears all intact. Cast in place to left upper extremity. [place] and healed area noted to coccyx. [place] and blanchable tissues noted to bilateral heels. [...] any questions or concerns. Rosalina Cross RN [facility] 08-08-2024 Note Formatting of this n ote might be different from the original. Rounds this am DCP: [facility] Called to notify Karishma/dtr: [facility] has overturned the Denial and is approved to go to [facility] Transport arranged for 330pm. Tasked to PAINT PREP TECHNICIAN to complete 7,000 Send AVS and Mar to facility Facility is updated RN and MD notified [facility] 08-08-2024 Note Formatting of this n ote might be different from the original. Rounds this am DCP: [facility] Called to notify Karishma/dtr: [facility] has overturned the Denial and is approved to go to [facility] Transport arranged for 330pm. Tasked to PAINT PREP TECHNICIAN to complete 7,000 Send AVS and Mar to facility Facility is updated RN and MD notified [facility] 08-08-2024 Miscellaneous Notes Rounds this am DCP: [facility] Called to notify Karishma/dtr: [facility] has overturned the Denial and is approved to go to [facility] Transport arranged for 330pm. Tasked to PAINT PREP TECHNICIAN to complete 7,000 Send AVS and Mar to facility Facility is updated RN and MD notified Patient Choice Patient Name: GONZALO DELUCA Date of : 1955 All Providers Sent Referral Name: [facility] Phone: [phone] Address: [address] [place] [address] Name: [facility] Phone: [phone] Address: [address] [place] [address] Name: [facility] Phone: [phone] Address: [address] [place] [address] Name: [facility] Phone: [phone] Address: [address] [place] [address] MAR, Discharge med list transmitted and 7000 in HENs to [facility] via [facility] per TCC request. [...] RN Outcome: Not Progressing Goal: Dietary Supplements 08/08/2024446 by Sadie Rodriguez RN Outcome: Progressing 08/08/2024315 by Sadie Rodriguez RN Outcome: Not Progressing Goal: Promote nutritional intake 08/08/2024446 by Sadie Rodriguez RN Outcome: Progressing [...] -Notified Dr. Beverly -Updated clinicals faxed to [phone] -If the appeal process is upheld, pt will have to go home with [facility]. -virtual classroom manager to follow and assist as needed. [...] denying SNF. [facility] is in the process of trying to get to [facility] through her waiver services. She started [...] Appeals number given to pt to call: [phone]. Appeals fax number: [phone]. Pt was calling as this CM was walking out of her room. virtual classroom manager to follow and assist as needed. Spoke with patients daughter Karishma, regarding dc plans, who states that they would like to ideally get patient into group home and then get patient over to [facility] under Medicaid. This will require an insurance appeal for the group home facility. Shared this discussion with the TCC [...] submit an appeal. The appeal number for [facility] is [phone] and fast appeal fax [phone] is not open on the weekend and this will need to be initiated on Tuesday. Discussed with patient and she wanted to discuss with her daughter prior to deciding to pursue appeal or discharge home with [facility]. She did state that her daughter [...] discharge needs are met Outcome: Progressing Called [facility] and spoke with Xiao and insurance is requesting peer to peer to be completed by 08/06 at 12 noon central standard time. Number for peer to peer is [phone] option 5. Will need members name, and [...] Promote nutritional intake Outcome: Progressing Tasked weekend correctional case records supervisor to follow for pending auth to [facility]. 7000 will need to be completed at the time of discharge. virtual classroom manager to follow and assist as needed. Sent updated notes to [facility] via [facility]port per TCC request. Await review and response regarding ability to accept. TCC notified. Care Management Progress Note -Discharge plan is [facility] -Tasked PAINT PREP TECHNICIAN supervisor mold construction to start auth. -Tasked PAINT PREP TECHNICIAN to send updated clinical notes to facility. -virtual classroom manager to follow for auth approval and [...] met Outcome: Progressing Referral placed to SNF- [facility] via [facility] per [facility] request. Await review and response regarding ability to accept. TCC notified. Care Management Progress Note -Spoke with pt at bedside for SNF choices. -Pt would like referrals sent to [facility], [facility], [facility], and [facility]. -Tasked PAINT PREP TECHNICIAN to send those referrals. -Will speak with pt again once facility responses are in for facility of choice. -virtual classroom manager to follow and assist as needed. Length of Stay (Days): 1 GMLOS: No GMLOS Documented -Spoke with pt and she has chosen [facility] as FOC. Informed facility. ADOD is [address] Bishop. Anticipate starting auth tomorrow. virtual classroom manager to follow and assist as needed. [...] case she decides before then on choices. -virtual classroom manager to follow and assist as needed. [...] My discharge needs are met Outcome: Progressing Ssis Etl Developer following case for Discharge Needs. Images from the original note were not included. [facility] Palliative Care Transitions of Care Note [...] short of breath when trying to eat. -House Visitor would be helpful. -BMI 15.28 -Albumin-->3.0 -Monitor. [...] Skilled Rehab Facility FACILITY/HOME CARE AGENCY NAME: [facility] Follow up with [facility] on office to call patient. [...] 5L last read documented in this encounter [facility] 08-08-2024 Note Formatting of this n ote might be different from the original. Patient Choice Patient Name: GONZALO DELUCA Date of : 1955 All Providers Sent Referral Name: Vinicius Brigitte AMAYA Member Phone: [phone] Address: [address] [place] [address] Name: [facility] Phone: [phone] Address: [address] [place] [address] Name: [facility] Phone: [phone] Address: [address] [place] [address] Name: [facility] (formerly [facility] (Formerly [facility])) Phone: [phone] Address: [address] [place], [place] [address] [facility] 08-08-2024 Note Formatting of this n ote might be different from the original. Patient Choice Patient Name: GONZALO DELUCA Date of : 1955 All Providers Sent Referral Name: Wishram Brigitte AMAYA Member Phone: [phone] Address: [address] [place] [address] Name: [facility] Phone: [phone] Address: [address] [place] [address] Name: Yapp[facility] Phone: [phone] Address: [address] [place] [address] Name: [facility] (formerly [facility] ([facility] Phone: [phone] Address: [address] [place] [address] [facility] 08-08-2024 Note Formatting of this n ote might be different from the original. MAR, Discharge med list transmitted and 7000 in [facility] to [facility] via [facility] per TCC request. [facility] 08-08-2024 Note Formatting of this n ote might be different from the original. MAR, Discharge med list transmitted and 7000 in [facility] to [facility] via [facility] per TCC request. T [facility] 08-08-2024 Note Hospitalist Discharg e Summary Gonzalo Deluca : 1955 Admit date: [...] desire to eat or drink and feeling just not hungry. The patient's shortness of breath, which is [...] fracture was identified on imaging, described as several months old. The patient's condition has significantly impacted her overall health and functioning, leading to a failure to thrive diagnosis. Her severe malnourishment and unintentional weight loss have contributed to her debilitated state. The combination of her respiratory issues, chronic pain, and nutritional deficits has led to a decline in her overall health status. Recent healthcare interactions include consultations with [facility], palliative care, pulmonology, orthopedic surgery, geriatrics, and [...] respiratory failure and severe emphysema. Plan: - OR FIRST ASSIST REGISTERED NURSE evaluation: recommended regular solids with thin liquids, [...] mg at bedtime - Adjust: - Decreased (more content not included)... [facility] 08-08-2024 Hospital course Narrative Images from the [...] desire to eat or drink and feeling just not hungry. The patient's shortness of breath, which is [...] fracture was identified on imaging, described as several months old. The patient's condition has significantly impacted her overall health and functioning, leading to a failure to thrive diagnosis. Her severe malnourishment and unintentional weight loss have contributed to her debilitated state. The combination of her respiratory issues, chronic pain, and nutritional deficits has led to a decline in her overall health status. Recent healthcare interactions include consultations with [facility], palliative care, pulmonology, orthopedic surgery, geriatrics, and [...] respiratory failure and severe emphysema. Plan: - OR FIRST ASSIST REGISTERED NURSE evaluation: recommended regular solids with thin liquids, [...] Plus 07/31/24 1030 07/31/24 1031 Supplement:HS Snack; Cactus Ensure Plus Until discontinued Question Answer Comment Frequency HS Snack Select supplement: Cactus Ensure Plus 07/31/24 1030 07/30/24 2313 Adult diet Regular Diet effective now Question: Diet type Answer: Regular 07/30/24 2313 Activity: as tolerated Recommended Outpatient Tests: Disposition: Patient discharged in stable condition to Home. Greater than 31 minutes spent discharging the patient and coming up with patient discharge plan. Vitals: BP 99/64 Pulse 87 Temp 36.2 C (97.2 F) Resp 18 Ht 5' 4 (1.626 m) Wt 89 lb 1.1 oz [...] Chronically ill apperances, LABS: Recent Labs 08/06/24 01108/07/2413708/08/24 0108 NA 141 141 141 K 3.8 3.7 3.9 CL 101 101 101 CO2 33* 33* 32* BUN 27* 28* 22 CREATININE 0.56* 0.59 0.63 GLUCOSE 93 124* 99 CALCIUM 8.9 9.3 8.6* Recent Labs 08/06/2411808/07/2413708/08/24 010 WBC 7.8 8.7 12.6* RBC 3.47* 3.38* [...] Your Medications These medications were sent to [facility]/pharmacy #[id number] [place] [id number] [facility] [place] [phone] PARoxetine 30 MG tablet You can get these medications from any pharmacy Bring a paper prescription for each of these medications morphine 15 MG tablet Information about where to get these medications is not yet available Ask your nurse or doctor about these medications albuterol (2.5 MG/3ML) 0.083% nebulizer solution folic acid 1 MG tablet QUEtiapine 50 MG tablet Recommended Follow-up: [facility] [address] [facility] [address] [facility] [address] Follow up Cognitive Evaluation Betsey Gresham MD [address] [facility] [address] Schedule an appointment as soon as possible for a visit in 3 week(s) Elyssa Tesfaye NP [address] [facility] [phone] Go on 08/20/2024 Pulmonary hospital follow up at 10:30 AM Complexity of Follow up: [] Moderate Complexity: follow up within 7-14 calendar days (32377) [x] Severe Complexity: follow up within 7 calendar days (26219) Follow up Testing, Pending results or Referrals [...] Rena Beverly MD Division of Hospitalist Medicine [facility] 08/08/2024, 12:48 PM [1] Past Medical History: [...] Vitamin D deficiency documented in this encounter [facility] 08-08-2024 History of Presen t illness Narrative Patient chart reviewed and being rounded on. Note to follow. 6:29 AM 08/08/24 Rena Beverly MD Division of Hospitalist Medicine [facility] Images from the original note were not included. [facility] [address] [place] [address] Patient - Gonzalo Deluca, Age - 68 y.o. - 1955 Room Number - B2-254/B2-254 B Consulting - Rena Beverly MD Primary Care Physician [id number] Date of Admission - 07/30/2024 4:40 PM [...] She is not currently following with a roustabout supervisor. She is on Breo ellipta, Spiriva, and [...] (97 F) (Temporal) Resp 18 Ht 5' 4 (1.626 m) Wt 89 lb 1.1 oz [...] prosthetic devices, implants and grafts, initial encounter ([facility]) Chronic pain COPD (chronic obstructive pulmonary disease) ([facility]) DDD (degenerative disc disease), cervical Leukocytosis Malignant neoplasm of exocervix ([facility]) Recurrent major depression ([facility]) Pulmonary nodule S/P hysterectomy Sciatica Shortness of breath Supplemental oxygen dependent PNA (pneumonia) H/O: CVA (cerebrovascular accident) Former smoker Nondisplaced fracture of neck of left femur ([facility]) Lumbar compression fracture, closed, initial encounter ([facility]) Severe malnutrition (CMS/HCC) ([facility]) Falls frequently Unintentional weight loss Debility [...] desire to eat or drink and feeling just not hungry. The patient's shortness of breath, which is [...] fracture was identified on imaging, described as several months old. The patient's condition has significantly impacted her overall health and functioning, leading to a failure to thrive diagnosis. Her severe malnourishment and unintentional weight loss have contributed to her debilitated state. The combination of her respiratory issues, chronic pain, and nutritional deficits has led to a decline in her overall health status. Recent healthcare interactions include consultations with [facility], palliative care, pulmonology, orthopedic surgery, geriatrics, and [...] appeal process to try to get into group home facility. She denies any fever cough or [...] 7 7 LIVER PROFILE:No results for input(s): AST, ALT, [...] (97 F) (Temporal) Resp 18 Ht 5' 4 (1.626 m) Wt 89 lb 1.1 oz [...] of failure to thrive and debility - OR FIRST ASSIST REGISTERED NURSE evaluation: recommended regular solids with thin liquids, sitting upright, slow rate of intake, and small bites - [facility]FP's has been denied - will need appeal. [...] to wait on appeal for SNF placement, alannah cannot manage helping patient at home and she will need placement in the future. 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 The patient's shortness of breath, which is [...] fracture was identified on imaging, described as several months old. The patient's condition has significantly impacted her overall health and functioning, leading to a failure to thrive diagnosis. Her severe malnourishment and unintentional weight loss have contributed to her debilitated state. The combination of her respiratory issues, chronic pain, and nutritional deficits has led to a decline in her overall health status. Recent healthcare interactions include consultations with [facility], palliative care, pulmonology, orthopedic surgery, geriatrics, and [...] Related Findings: wt decreased since admission,jeri 20, /18 bm, i/o + 2 liters ,alb 3, hgb 10.7, co2-33, folate 5.2- ,md to start folate - low , on remeron Wound Type: None Current Nutrition Therapies: Adult diet Regular Current Oral Intake Average Meal Intake: 26-50%, 51-75% Average Supplements Intake: 51-75% Anthropometric Measures: Height: 162.6 cm (5' 4) Current Body Weight: 40.4 kg (89 lb 1.1 oz) Weight Source: Bed Scale (08/03/24) Admission Body Weight: 40.6 kg (89 lb 8.1 oz) (07/30/24 PCP office) Usual Body Weight: 55.5 kg (122 lb 5.7 oz) % Weight Change (Calculated): -27.2 [place] Body Weight (lbs) (Calculated): 120 lbs [place] Body Weight (Kg) (Calculated): 55 kg % [place] Body Weight (Calculated): 74.2 % BMI (kg/m2) [...] Oral Nutrition Supplement Phillip Bradshaw RD Contact: [phone] or secure chat [facility] Geriatric Medicine Inpatient Consult Service Admission [...] at [facility] for more in depth [...] Complaint: shortness of breath Geriatrics consulted for falls at home, failure to thrive HPI- The patient is known to me. [...] from [place] when she had a fall. Placed in [...] (97.9 F) (Temporal) Resp 18 Ht 5' 4 (1.626 m) Wt 89 lb 1.1 oz [...] (L) 07/30/2024 Lab Results Component Value Date [id number] 639 07/30/2024 Lab Results Component Value Date VITD25 30 09/21/2023 [1] Current Facility-Administered Medications: acetaminophen (Tylenol) tablet 650 mg, 650 mg, Oral, q6h PRN OR acetaminophen (Tylenol) suppository 650 mg, 650 mg, Rectal, q6h PRN, Lauren Serna MD acetaminophen (Tylenol) tablet 650 mg, 650 mg, Oral, BID, Saad Ezzie, SEED LABORATORY TECHNICIAN - SHOE TURNER, 650 mg at 08/06/24 0841 albuterol (2.5 MG/3ML) 0.083% nebulizer solution 2.5 mg, 2.5 mg, Nebulization, q4h PRN, Lauren Serna MD, 2.5 mg at 08/05/24 1709 albuterol (2.5 MG/3ML) 0.083% nebulizer solution 2.5 mg, 2.5 mg, Nebulization, BID, Rena Tuyet Morehart, MD, 2.5 mg at 08/06/24 0911 aspirin [...] BID, Lauren Serna MD, 2 puff at 08/06/24 0839 montelukast (Singulair) tablet 10 mg, 10 mg, Oral, Nightly, Lauren Serna MD, 10 mg at 08/05/24 2044 morphine (MSIR) tablet 15 mg, 15 mg, Oral, q4h PRN, Imelda Bernard, DB - [place], 15 mg at 08/06/24 0856 naloxone (Narcan) injection 0.4 mg, 0.4 mg, IntraVENous, q5 min PRN, Lauren Serna MD ondansetron ODT (Zofran-ODT) disintegrating tablet 4 mg, 4 mg, Oral, q8h PRN OR ondansetron (Zofran) injection 4 mg, 4 mg, IntraVENous, q6h PRN, Lauren Serna MD PARoxetine (Paxil) tablet 30 mg, 30 mg, Oral, q AM, Saad Telles APRN - SHOE TURNER, 30 mg at 08/06/24 0841 polyethylene glycol [...] mg, 10 mg, Oral, Daily, Leann Cross SEED LABORATORY TECHNICIAN - [employer]URNER QUEtiapine (SEROquel) tablet 50 mg, 50 mg, Oral, Nightly PRN, Saad Telles APRN - SH[employer]URNER, 50 mg at 08/05/24 2048 sodium chloride ([place]) 0.65 % nasal spray 2 spray, 2 spray, Each Nostril, q2h PRN, Dejuan Bishop MD, 2 spray at 08/02/24 1621 tiotropium (Spiriva Respimat) 2.5 MCG/ACT inhaler 2 puff, 2 puff, Inhalation, Daily, Lauren Serna MD, 2 puff at 08/06/24 0839 Images from the original note were not included. PHYSICAL THERAPY [facility] Treatment Note Name/MRN: Gonzalo Deluca ([id number]) Date of : 1955 Age: 68 y.o. Room/Bed: B2-254/[facility] B Visit #: 5 out of 7 Discharge Recommendation: Detention Facility Other: TBD at next level of [...] original note were not included. [facility] Pul[facility] [place] [address] [place], [place] [id number] Patient - Gonzalo Deluca, Age - 68 y.o. - 1955 Room Number - B2-254/B2-254 B Consulting - Rena Beverly MD Primary Care Physician - HERMINIA CASE MD [facility] # - [id number] Date of Admission - 07/30/2024 4:40 PM [...] She is not currently following with a roustabout supervisor. She is on Breo ellipta, Spiriva, and [...] (97.9 F) (Temporal) Resp 18 Ht 5' 4 (1.626 m) Wt 89 lb 1.1 oz [...] prosthetic devices, implants and grafts, initial encounter ([facility]) Chronic pain COPD (chronic obstructive pulmonary disease) ([facility]) DDD (degenerative disc disease), cervical Leukocytosis Malignant neoplasm of exocervix ([facility]) Recurrent major depression ([facility]) Pulmonary nodule S/P hysterectomy Sciatica Shortness of breath Supplemental oxygen dependent PNA (pneumonia) H/O: CVA (cerebrovascular accident) Former smoker Nondisplaced fracture of neck of left femur (HCC) Lumbar compression fracture, closed, initial encounter ([facility]) Severe malnutrition (CMS/HCC) ([facility]) Falls frequently Unintentional weight loss Debility PFO (patent foramen ovale) Adult failure to thrive Anxiety and depression Cognitive deficits At risk for delirium Images from the original note were not included. OCCUPATIONAL THERAPY [facility] Treatment Note Name/MRN: Gonzalo Deluca ([id number]) Date of : 1955 Age: 68 y.o. Room/Bed: [facility] B Visit #: 4 out of [...] desire to eat or drink and feeling just not hungry. The patient's shortness of breath, which is [...] fracture was identified on imaging, described as several months old. The patient's condition has significantly impacted her overall health and functioning, leading to a failure to thrive diagnosis. Her severe malnourishment and unintentional weight loss have contributed to her debilitated state. The combination of her respiratory issues, chronic pain, and nutritional deficits has led to a decline in her overall health status. Recent healthcare interactions include consultations with [facility], palliative care, pulmonology, orthopedic surgery, geriatrics, [...] 5 7 LIVER PROFILE:No results for input(s): AST, ALT, [...] (97.9 F) (Temporal) Resp 18 Ht 5' 4 (1.626 m) Wt 89 lb 1.1 oz [...] of failure to thrive and debility - OR FIRST ASSIST REGISTERED NURSE evaluation: recommended regular solids with thin liquids, sitting upright, slow rate of intake, and small bites - MCFP's has been denied - will need appeal. [...] drug monitoring : # Drug name : genovevanox # Route administered : SQ # Method of monitoring : Monitor for bleeding Extended Emergency Contact Information Primary Emergency Contact: Nacho Delucai Address: [address] [place] [address] [place] [id number] [facility] Mobile Relation: Daughter Secondary Emergency Contact: Jace Deluca Mobile Relation: Son Rena Tuyet Beverly MD Division of Hospitalist Medicine [facility] [1] Past Medical History: Diagnosis [...] original note were not included. PHYSICAL THERAPY [facility] Treatment Note Name/MRN: Gonzalo Deluca ([id number]) Date of : 1955 Age: 68 y.o. Room/Bed: B2-254/B2254 B Visit #: 4 out of 7 Discharge Recommendation: Detention Facility Other: TBD at next level of [...] SpO2 93% on 4L via NC Pain: always but pt didn't provide rating, or location [...] original note were not included. OCCUPATIONAL THERAPY [facility] Treatment Note Name/MRN: Gonzalo Deluca ([id number]) Date of : 1955 Age: 68 y.o. Room/Bed: B2-254/B2-254 B Visit #: 3 out of 6 Discharge Recommendation: Detention Facility Equipment Needed: No Assessment Pt tolerated [...] original note were not included. [facility] [place] [address] [place] [address] Patient - Gonzalo Deluca, Age - 68 [...] hematemesis melena hematuria Apparently not seeing any roustabout supervisor recently Was on Dulera Spiriva and rescue inhaler compliant with the medication Not on NIV No PFT available in [facility] All other systems reviewed Objective Vitals: BP 123/78 Pulse 78 Temp 36.7 C (98 F) (Temporal) Resp 16 Ht 5' 4 (1.626 m) Wt 89 lb 1.1 oz [...] 21 INR PTT No results found for: PTT Cultures Radiology Exam Date/Time: 07/31/2024 15:25 Procedure: [...] be severe no current PFT available on [facility] 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 [...] prosthetic devices, implants and grafts, initial encounter ([facility]) Chronic pain COPD (chronic obstructive pulmonary disease) (HCC) DDD (degenerative disc disease), cervical Leukocytosis Malignant neoplasm of exocervix (HCC) Recurrent major depression (HCC) Pulmonary nodule S/P hysterectomy Sciatica Shortness of breath Supplemental oxygen dependent PNA (pneumonia) H/O: CVA (cerebrovascular accident) Former smoker Nondisplaced fracture of neck of left femur (HCC) Lumbar compression fracture, closed, initial encounter ([facility]) Severe malnutrition (CMS/HCC) ([facility]) Falls frequently Unintentional weight loss Debility [...] desire to eat or drink and feeling just not hungry. The patient's shortness of breath, which is [...] fracture was identified on imaging, described as several months old. The patient's condition has significantly impacted her overall health and functioning, leading to a failure to thrive diagnosis. Her severe malnourishment and unintentional weight loss have contributed to her debilitated state. The combination of her respiratory issues, chronic pain, and nutritional deficits has led to a decline in her overall health status. Recent healthcare interactions include consultations with [facility], palliative care, pulmonology, orthopedic surgery, geriatrics, [...] 6 5 LIVER PROFILE:No results for input(s): AST, ALT, [...] (98 F) (Temporal) Resp 16 Ht 5' 4 (1.626 m) Wt 89 lb 1.1 oz [...] of failure to thrive and debility - OR FIRST ASSIST REGISTERED NURSE evaluation: recommended regular solids with thin liquids, sitting upright, slow rate of intake, and small bites - Consider group home facility placement for comprehensive care - Geriatrics [...] Information Primary Emergency Contact: Karishma Deluca Address: [address] [place] [address] [place] [address] [facility] Mobile Relation: Daughter Secondary Emergency Contact: Jace Deluca Mobile Relation: Son Rena Tuyet Beverly MD Division of Hospitalist Medicine [employer] [facility] [1] Past Medical History: Diagnosis Date Abnormal [...] original note were not included. [facility] [address] [place] [address] Patient - Gonzalo Deluca, Age - 68 y.o. - 1955 Room Number - B2-254/B2-254 B Consulting - Rena Beverly MD Primary Care Physician - HER[id number] Date of Admission - 07/30/2024 4:40 PM [...] hematemesis melena hematuria Apparently not seeing any roustabout supervisor recently Was on Dulera Spiriva and rescue inhaler compliant with the medication Not on NIV No PFT available in [facility] All other systems reviewed Objective Vitals: BP 127/72 Pulse 85 Temp 36.3 C (97.3 F) (Temporal) Resp 18 Ht 5' 4 (1.626 m) Wt 89 lb 1.1 oz [...] 21 INR PTT No results found for: PTT Cultures Radiology Exam Date/Time: 07/31/2024 15:25 Procedure: [...] be severe no current PFT available on [facility] 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 The patient's shortness of breath, which is [...] fracture was identified on imaging, described as several months old. The patient's condition has significantly impacted her overall health and functioning, leading to a failure to thrive diagnosis. Her severe malnourishment and unintentional weight loss have contributed to her debilitated state. The combination of her respiratory issues, chronic pain, and nutritional deficits has led to a decline in her overall health status. Recent healthcare interactions include consultations with [facility], palliative care, pulmonology, orthopedic surgery, geriatrics, [...] ANIONGAP 6 LIVER PROFILE:No results for input(s): AST, ALT, [...] (97.3 F) (Temporal) Resp 18 Ht 5' 4 (1.626 m) Wt 89 lb 1.1 oz [...] of failure to thrive and debility - OR FIRST ASSIST REGISTERED NURSE evaluation: recommended regular solids with thin liquids, sitting upright, slow rate of intake, and small bites - Consider group home facility placement for comprehensive care - Geriatrics [...] drug monitoring : # Drug name : genovevanox # Route administered : SQ # Method of monitoring : Monitor for bleeding Extended Emergency Contact Information Primary Emergency Contact: Karishma Deluca Address: [address] [place] [address] [place] [address] [facility] Mobile Relation: Daughter Secondary Emergency Contact: YosiJace Mobile Relation: Son Rena Tuyet Beverly MD Division of Hospitalist Medicine [facility] [1] Past Medical History: Diagnosis [...] original note were not included. PHYSICAL THERAPY [facility] Name/MRN: Gonzalo Deluca ([id number]) Date: 08/04/2024 Chart review completed this date. PT attempted. Pt supine. Receiving breathing treatments during first attempt second attempt patient requesting HR COORDINATOR return after eating breakfast. Pt tray had [...] is 21 -already being followed by RD. 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 Strength: Nutrition Assessment: 68 year old woman who remains admitted to [facility] at direction of PCP with FTT- +falls, [...] 76-100% Anthropometric Measures: Height: 162.6 cm (5' 4) Current Body Weight: 42 kg (92 lb 9.5 oz) Weight Source: Bed Scale Admission Body Weight: 40.6 kg (89 lb 8.1 oz) (07/30/24 PCP office) Usual Body Weight: 55.5 kg (122 lb 5.6 oz) (per EMR 122.35# 09/08/23) % Weight Change (Calculated): -24.3 [place] Body Weight (lbs) (Calculated): 120 lbs [place] Body Weight (Kg) (Calculated): 55 kg % [place] Body Weight (Calculated): 77.2 % BMI (kg/m2) [...] Nutrition Supplement Celeste Garcia RDN, LDN, Contact: *[phone] [facility] Geriatric Medicine Inpatient Consult Service Admission [...] for shortness of breath --[facility] Severe Malnutrition --continue [...] note, this was the dose recommended by [facility] psychiatry when she was hospitalized in [...] 439 ms --Continue scheduled melatonin at HS --08/03: She does not appear delirious today Follow-up: will follow with you Subjective Chief Complaint: shortness of breath Geriatrics consulted for falls at home, failure to thrive HPI- The patient is new to me [...] days. Also with cough. Her appetite is not bad. -Sleep: it was OK. She did wake [...] (97.2 F) (Temporal) Resp 17 Ht 5' 4 (1.626 m) Wt 89 lb (40.4 kg) [...] (L) 07/30/2024 Lab Results Component Value Date [id number] 639 07/30/2024 Lab Results Component Value Date VITD25 30 09/21/2023 [1] Current Facility-Administered Medications: acetaminophen (Tylenol) tablet 650 mg, 650 mg, Oral, q6h PRN OR acetaminophen (Tylenol) suppository 650 mg, 650 mg, Rectal, q6h PRN, Lauren Serna MD acetaminophen (Tylenol) tablet 650 mg, 650 mg, Oral, BID, Saad Haynese, SEED LABORATORY TECHNICIAN - SHOE TURNER, 650 mg at 08/03/24910 albuterol (2.5 MG/3ML) 0.083% nebulizer solution 2.5 mg, 2.5 mg, Nebulization, q4h PRN, Lauren Serna MD, 2.5 mg at 08/01/242055 aspirin EC tablet 81 mg, 81 mg, Oral, Daily, Lauren Serna MD, 81 mg at 08/02/24802 buPROPion XL (Wellbutrin XL) 24 hr tablet 150 mg, 150 mg, Oral, Daily, Lauren Serna MD, 150 mg at 08/03/24909 busPIRone (Buspar) tablet 15 mg, 15 mg, Oral, BID, Lauren Serna MD, 15 mg at 08/03/24909 calcitonin (Miacalcin) injection 50 Units, 50 Units, IntraMUSCular, Daily, Lauren Serna MD, 50 Units at 08/03/24914 cefepime (Maxipime) 2,000 mg in sodium chloride 0.9 % 50 mL IVPB Mini-Bag Plus, 2,000 mg, IntraVENous, q12h, Dejuan Bishop MD, Last Rate: 12.5 mL/hr at 08/03/24918, 2,000 mg at 08/03/24918 cetirizine (ZyrTEC) tablet 5 mg, 5 mg, Oral, Daily, Dejuan Bishop MD, 5 mg at 08/03/24910 cyclobenzaprine (Flexeril) tablet 5 mg, 5 mg, Oral, TID PRN, Lauren Serna MD enoxaparin (Lovenox) syringe 30 mg, 30 mg, SubCUTAneous, Daily, Lauren Serna MD, 30 mg at 08/03/24909 fluticasone (Flonase) nasal spray 2 spray, 2 [...] 15 mg, Oral, q4h PRN, Imelda Bernard, SEED LABORATORY TECHNICIAN - SHOE TURNER, 15 mg at 08/03/24 0909 naloxone (Narcan) injection 0.4 mg, 0.4 mg, IntraVENous, q5 min PRN, Lauren Serna MD ondansetron ODT (Zofran-ODT) disintegrating tablet 4 mg, 4 mg, Oral, q8h PRN OR ondansetron (Zofran) injection 4 mg, 4 mg, IntraVENous, q6h PRN, Lauren Serna MD PARoxetine (Paxil) tablet 30 mg, 30 mg, Oral, q AM, Saad Telles, SEED LABORATORY TECHNICIAN - SHOE TURNER, 30 mg at 08/03/24 0910 polyethylene glycol [...] mg, 10 mg, Oral, Daily, Leann Cross, SEED LABORATORY TECHNICIAN - SHOE TURNER QUEtiapine (SEROquel) tablet 50 mg, 50 mg, Oral, Nightly PRN, Saad Telles APRN - [place], 50 mg at 08/02/242047 sodium chloride ([place]) 0.65 % nasal spray 2 spray, 2 spray, Each Nostril, q2h PRN, Dejuan Bishop MD, 2 spray at 08/02/24 1621 tiotropium (Spiriva Respimat) 2.5 MCG/ACT inhaler 2 puff, 2 puff, Inhalation, Daily, Lauren Serna MD, 2 puff at 08/03/24 0915 Images from the original note were not included. PHYSICAL THERAPY [facility] Treatment Note Name/MRN: Gonzalo Deluca ([id number]) Date of : 1955 Age: 68 y.o. Room/Bed: [facility] B Visit #: 3 out of 7 visits Discharge Recommendation: Detention Facility Other: TBD at next level of [...] original note were not included. OCCUPATIONAL THERAPY [facility] Treatment Note Name/MRN: Gonzalo Deluca ([id number]) Date of : 1955 Age: 68 y.o. Room/Bed: B2-254/B2-254 B Visit #: 2 out of 6 visits Discharge Recommendation: Detention Facility Equipment Needed: No Prior Level of Function Prior Level of ADL Function: Independent Prior Level of Mobility: Independent; Device: Straight Cane Prior Level of Transfers: Independent Assessment Pt tolerated session fair, continues to be limited by fatigue and SOB. Pt completed bed mobility at Mod I. Pt completed x3 STS and LE dressing/bathing at [facility]. Pt completed seated UE bathing at [...] bit Pain Location: reports more of an annoying pain in her LUE Medical Precautions: No [...] Pt completed standing LE bathing (periarea) at [facility]. Pt demo no overt LoB, generally [...] x3 STS from EOB without device at [facility]. Pt ed on proper tech to [...] desire to eat or drink and feeling just not hungry. The patient's shortness of breath, which is [...] fracture was identified on imaging, described as several months old. The patient's condition has significantly impacted her overall health and functioning, leading to a failure to thrive diagnosis. Her severe malnourishment and unintentional weight loss have contributed to her debilitated state. The combination of her respiratory issues, chronic pain, and nutritional deficits has led to a decline in her overall health status. Recent healthcare interactions include consultations with [facility], palliative care, pulmonology, orthopedic surgery, geriatrics, [...] Intake/Output Summary (Last 24 hours) at 08/03/2024 09 Last data filed at 08/02/2024 2154 Gross per 24 hour Intake 200 ml Output -- Net 200 ml Past Medical History: Medical History[1] LABS: CBC: No results for input(s): WBC, RBC, HGB, HCT, MCV, RDW, PLT in the last 72 hours. BMP:No results for input(s): NA, K, CL, [...] (97.2 F) (Temporal) Resp 17 Ht 5' 4 (1.626 m) Wt 89 lb (40.4 kg) [...] of failure to thrive and debility - OR FIRST ASSIST REGISTERED NURSE evaluation: recommended regular solids with thin liquids, sitting upright, slow rate of intake, and small bites - Consider group home facility placement for comprehensive care - Geriatrics [...] Information Primary Emergency Contact: Karishma Deluca Address: [address] [place] [address] [place] [address] [facility] Mobile Relation: Daughter Secondary Emergency Contact: Jace Deluca Mobile Relation: Son Rena Tuyet Beverly MD Division of Hospitalist Medicine [facility] [1] Past Medical History: Diagnosis [...] original note were not included. [facility] [address] [place] [address] Patient - Gonzalo Deluca, Age - 68 [...] hematemesis melena hematuria Apparently not seeing any roustabout supervisor recently Was on Dulera Spiriva and rescue inhaler compliant with the medication Not on NIV No PFT available in [facility] All other systems reviewed Objective Vitals: BP 113/65 (BP Location: Right arm, Patient Position: Sitting) Pulse 79 Temp 36.2 C (97.2 F) (Temporal) Resp 17 Ht 5' 4 (1.626 m) Wt 89 lb (40.4 kg) [...] 21 INR PTT No results found for: PTT Cultures Radiology Exam Date/Time: 07/31/2024 15:25 Procedure: [...] be severe no current PFT available on [facility] 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 [...] prosthetic devices, implants and grafts, initial encounter ([facility]) Chronic back pain COPD (chronic obstructive pulmonary disease) ([facility]) DDD (degenerative disc disease), cervical Leukocytosis Malignant neoplasm of exocervix ([facility]) Recurrent major depression ([facility]) Pulmonary nodule S/P hysterectomy Sciatica Shortness of breath Supplemental oxygen dependent PNA (pneumonia) H/O: CVA (cerebrovascular accident) Former smoker Nondisplaced fracture of neck of left femur ([facility]) Lumbar compression fracture, closed, initial encounter ([facility]) Severe malnutrition (CMS/HCC) ([facility]) Falls frequently Unintentional weight loss Debility PFO (patent foramen ovale) Adult failure to thrive H: No results for input(s): HGB, WBC in the last 72 hours. VS: Blood pressure 145/89, pulse 101, temperature 36.4 C (97.5 F), temperature source Temporal, resp. rate 18, height 1.626 m (5' 4), weight 40.4 kg (89 lb), SpO2 94%. [...] short of breath when trying to eat. -House Visitor would be helpful. -BMI 15.28 -Albumin-->3.0 -Monitor. [...] Improve or Maintain Function/Quality of Life, Preserve Harrison/Autonomy/Control, and Remain at Home Advanced Directives: DNR-CCA, DNI Functional Assessment: PPS 70% amb reduced; can't do normal work/some disease; full self care; normal or reduced intake; full LOC Prognosis: depends upon goals of care Spiritual Assessment: No spiritual distress identified Bereavement and Grief: To Be Determined PDMP/OARRS Reviewed: Yes-reviewed ROS: See palliative care ROS/ESAS below; All other systems were reviewed and are negative. [place] Symptom Assessment Score [place] Score Pain Score (if non-verbal, add .FLACC [...] (97.7 F) (Temporal) Resp 16 Ht 5' 4 (1.626 m) Wt 89 lb (40.4 kg) [...] original note were not included. PHYSICAL THERAPY [facility] Treatment Note Name/MRN: Gonzalo Deluca ([id number]) Date of : 1955 Age: 68 y.o. Room/Bed: [facility] B Visit #: 2 out of 7 visits Discharge Recommendation: Continue to assess pending progress, Detention Facility Other: TBD at next level of [...] Raw Score (No Stairs) : 15 JH-HLM -HLM Score: Walked 25 ft or [...] 10 Minutes (gait x1) Rayo Joseph PT [facility] Geriatric Medicine Inpatient Consult Service Admission [...] deficits. --Recommend outpatient follow up at [facility]) for more in depth cognitive evaluation [...] Subjective Chief Complaint: fatigue Geriatrics consulted for falls at home, failure to thrive HPI- The patient is known to me. 68 y.o. year-old female with PMH of COPD, cervical cancer, DDD, DJD, Lung nodules, Osteoporosis, Depression, Compression fracture, Vitamin D deficiency, anxiety, presented to [facility] on 07/30/24 with complaints of weight loss [...] (97.7 F) (Temporal) Resp 16 Ht 5' 4 (1.626 m) Wt 89 lb (40.4 kg) [...] (L) 07/30/2024 Lab Results Component Value Date [id number] 639 07/30/2024 Lab Results Component Value Date VITD25 09/21/2023 Reviewed: allergies, previous encounters, imaging, active [...] Lauren Serna MD, 150 mg at 08/02/24 08 busPIRone (Buspar) tablet 15 mg, 15 mg, [...] 15 mg, Oral, q4h PRN, Imelda Bernard, SEED LABORATORY TECHNICIAN - SHOE TURNER, 15 mg at 08/02/24 1156 naloxone (Narcan) injection 0.4 mg, 0.4 mg, IntraVENous, q5 min PRN, Lauren Serna MD ondansetron ODT (Zofran-ODT) disintegrating tablet 4 mg, 4 mg, Oral, q8h PRN OR ondansetron (Zofran) injection 4 mg, 4 mg, IntraVENous, q6h PRN, Lauren Serna MD PARoxetine (Paxil) tablet 30 mg, 30 mg, Oral, q AM, Saad Ezdariene, SEED LABORATORY TECHNICIAN - [employer]OE [employer]URNER, 30 mg at 08/02/24 0936 polyethylene glycol [...] CNP, 50 mg at 08/01/242032 sodium chloride ([place]) 0.65 % nasal spray 2 spray, 2 spray, Each Nostril, q2h PRN, Dejuan Bishop MD tiotropium (Spiriva Respimat) 2.5 MCG/ACT inhaler 2 puff, 2 puff, Inhalation, Daily, Lauren Serna MD, 2 puff at 08/02/24 0806 Hospitalist Progress Note 08/02/2024 [phone]: Please page me ([phone]) for patient care issues. [phone]: Please page [facility] night Hospitalist for any issues. Subjective: Admit Date: 07/30/2024 PCP: HERMINIA CASE MD Room#: B2-254/B2254 B Interval History: Patient is sitting on the bed, still on 5 L nasal cannula saturating well. No signs of respiratory distress noticed Denies any cough or sputum production pain No other significant overnight issues. Adult diet Regular @[id number]@ 24HR INTAKE/OUTPUT: No intake or output data [...] PROT 6.5 PT/INR: No results for input(s): PROTIME, INR in the last 72 hours. CARDIAC ENZYMES: No results for input(s): TROPONINI in the last 72 hours. Procalcitonin: Lab Results Component Value Date PROCAL 0.03 07/30/2024 COVID-19 PCR: No results for input(s): COVID19 in the last 72 hours. Objective: Vitals: BP 123/80 (BP Location: Right arm, Patient Position: Sitting) Pulse 87 Temp 36.5 C (97.7 F) (Temporal) Resp 16 Ht 5' 4 (1.626 m) Wt 89 lb (40.4 kg) [...] prophylaxis: Lovenox daily. Disposition: PT OT recommending group home facility. Possible discharge in next 1 to 2 days. Pending Long arm cast placement -am labs, replace lytes prn -increase activity -DVT prophylaxis: [] Lovenox [] Heparin [] SCDs [x] Encourage ambulation [] Already on Anticoagulation Advance Directive: DNR-CCA Discharge planning: TBD Dejuan Bishop MD Division of Hospitalist Medicine Inpatient Medical Services/[facility] P[facility]ER: [phone] Acute hypoxic respiratory failure [1] Past Medical [...] original note were not included. OCCUPATIONAL THERAPY [facility] Treatment Note Name/MRN: Gonzalo Deluca ([id number]) Date of : 1955 Age: 68 y.o. Room/Bed: [facility] B Visit #: 1 out of 6 visits Discharge Recommendation: Detention Facility, Continue to assess pending progress Equipment [...] Daily Activity Raw Score: 18 ADL Inpatient [facility] G-Code Modifier: CK Goals Patient Stated Goal: [...] Individual Co-treatment Time In 0904 Time Out 09 Minutes 15 Darius Worrell OT Portions of [...] resp. rate 22, height 1.626 m (5' 4), weight 40.4 kg (89 lb), SpO2 95%. [...] original note were not included. [facility] [place] [address] [place] [address] Patient - Gonzalo Deluca, Age - 68 y.o. - 1955 Room Number - B2-254/B2-254 B Consulting - Dejuan Bishop MD Primary Care Physician - [id number] Date of Admission - 07/30/2024 4:40 PM [...] hematemesis melena hematuria Apparently not seeing any roustabout supervisor recently Was on Dulera Spiriva and rescue inhaler compliant with the medication Not on NIV No PFT available in [facility] All other systems reviewed Objective Vitals: BP 131/88 (BP Location: Right arm, Patient Position: Sitting) Pulse 95 Temp 36 C (96.8 F) (Temporal) Resp 22 Ht 5' 4 (1.626 m) Wt 89 lb (40.4 kg) [...] 21 INR PTT No results found for: PTT Cultures Radiology Exam Date/Time: 07/31/2024 15:25 Procedure: [...] be severe no current PFT available on [facility] 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 [...] prosthetic devices, implants and grafts, initial encounter ([facility]) Chronic back pain COPD (chronic obstructive pulmonary disease) ([facility]) DDD (degenerative disc disease), cervical Leukocytosis Malignant neoplasm of exocervix (HCC) Recurrent major depression ([facility]) Pulmonary nodule S/P hysterectomy Sciatica Shortness of breath Supplemental oxygen dependent PNA (pneumonia) H/O: CVA (cerebrovascular accident) Former smoker Nondisplaced fracture of neck of left femur ([facility]) Lumbar compression fracture, closed, initial encounter ([facility]) Severe malnutrition (CMS/HCC) ([facility]) Falls frequently Unintentional weight loss Debility PFO (patent foramen ovale) Adult failure to thrive Hospitalist Progress Note 08/01/2024 [phone]: Please page me ([phone]) for patient care issues. [phone]: Please page [facility] Hospitalist for any issues. Subjective: Admit Date: 07/30/2024 PCP: HERMINIA CASE MD Room#: B2-254/B2-254 B Interval History: Patient is sitting on the chair, denies any chest pain shortness of breath or palpitations Denies any upper extremity pain. No other significant overnight issues. Adult diet Regular @[id number]@ 24HR INTAKE/OUTPUT: Intake/Output Summary (Last 24 hours) at 08/01/2024 175 Last data filed at 07/31/2024 175 Gross per 24 hour Intake 125 ml [...] PROT 6.5 PT/INR: No results for input(s): PROTIME, INR in the last 72 hours. CARDIAC ENZYMES: No results for input(s): TROPONINI in the last 72 hours. Procalcitonin: Lab Results Component Value Date PROCAL 0.03 07/30/2024 COVID-19 PCR: No results for input(s): COVID19 in the last 72 hours. Objective: Vitals: BP 114/79 Pulse 91 Temp 36.9 C (98.5 F) (Temporal) Resp 18 Ht 5' 4 (1.626 m) Wt 89 lb (40.4 kg) [...] prophylaxis: Lovenox daily. Disposition: PT OT recommending group home facility. Possible discharge in next 1 to 2 days. Pending Long arm cast placement -am labs, replace lytes prn -increase activity -DVT prophylaxis: [] Lovenox [] Heparin [] SCDs [x] Encourage ambulation [] Already on Anticoagulation Advance Directive: DNR-CCA Discharge planning: TBD Dejuan Bishop MD Division of Hospitalist Medicine Inpatient Medical Services/[facility] PAGER: [phone] [1] Past Medical History: Diagnosis Date Abnormal [...] original note were not included. PHYSICAL THERAPY [facility] Treatment Note Name/MRN: Gonzalo Deluca ([id number]) Date of : 1955 Age: 68 y.o. Room/Bed: [facility] B Visit #: 1 out of 7 visits Discharge Recommendation: Continue to assess pending progress, Detention Facility Other: TBD at next level of [...] Raw Score (No Stairs) : 15 JH-HLM -[facility] Score: Walked 25 ft or more [...] Esparza PT at 08/01/2024 4:08 PM EDT [facility] Geriatric Medicine Inpatient Consult Service Admission [...] [facility] for more in depth [...] Subjective Chief Complaint: weakness Geriatrics consulted for falls at home, failure to thrive HPI- The patient is known to me. 68 y.o. year-old female with PMH of COPD, cervical cancer, DDD, DJD, Lung nodules, Osteoporosis, Depression, Compression fracture, Vitamin D deficiency, anxiety, presented to [facility] on 07/30/24 with complaints of weight loss [...] (98.5 F) (Temporal) Resp 18 Ht 5' 4 (1.626 m) Wt 89 lb (40.4 kg) [...] (L) 07/30/2024 Lab Results Component Value Date [id number] 639 07/30/2024 Lab Results Component Value Date [...] BID, Lauren Serna MD, 2 puff at 08/01/24847 montelukast (Singulair) tablet 10 mg, 10 mg, [...] AM, Dejuan Bishop MD, 20 mg at 08/01/24 0840 polyethylene glycol (PEG) 3350 (Miralax) packet 17 [...] not included. Speech-Language Pathology SPEECH LANGUAGE PATHOLOGY [facility] Dysphagia Treatment Note Patient Name: Gonzalo Deluca Evaluation Date: 08/01/2024 Date of : 1955 Admission Date: 07/30/2024 4:40 PM Age: 68 y.o. Room/Bed: [facility] B Subjective Patient alert and cooperative. Seen [...] Plus 07/31/24 1030 07/31/24 1031 Supplement:HS Snack; Cactus Ensure Plus Until discontinued Question Answer Comment Frequency HS Snack Select supplement: Cactus Ensure Plus 07/31/24 1030 07/30/24 2313 Adult [...] bites/sips Patient has achieved all acute care OR FIRST ASSIST REGISTERED NURSE goals. 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 -House Visitor would be helpful. -BMI 15.28 -Albumin-->3.0 -Monitor. [...] emphysema. -Pulmonology consulted, await recs. Discussed with RADIO COMMUNICATIONS MECHANICIAN Leann this AM. She will need follow [...] Improve or Maintain Function/Quality of Life, Preserve Harrison/Autonomy/Control, and Remain at Home Advanced Directives: DNR Functional Assessment: PPS 70% amb reduced; can't do normal work/some disease; full self care; normal or reduced intake; full LOC Prognosis: depends upon goals of care Spiritual Assessment: No spiritual distress identified Bereavement and Grief: To Be Determined PDMP/OARRS Reviewed: Yes-reviewed ROS: See palliative care ROS/ESAS below; All other systems were reviewed and are negative. [place] Symptom Assessment Score [place] Score Pain Score (if non-verbal, add .FLACC [...] (98.5 F) (Temporal) Resp 18 Ht 5' 4 (1.626 m) Wt 89 lb (40.4 kg) [...] resp. rate 18, height 1.626 m (5' 4), weight 40.4 kg (89 lb), SpO2 96%. No complains or overnight issues. PE: NVI LUE. Long arm splint intact. Good finger ROM Xray: N/a IMP: Left supracondylar humerus fx -- chronic? PLAN: Will apply LAC tomorrow 0700 Lab Results Component Value Date WBC 8.9 07/30/2024 HGB 11.2 (L) 07/30/2024 HCT 37.0 07/30/2024 PLT 225 07/30/2024 Hospitalist Progress Note 07/31/[phone]: Please page me ([phone]) for patient care issues. [phone]: Please page [facility] night Hospitalist for any issues. Subjective: Admit Date: 07/30/2024 PCP: HERMINIA CASE MD Room#: B2-254/-254 B Interval History: Patient is sitting on the bed, denies any chest pain or shortness of breath. Denies any abdominal pain nausea or vomitings No other significant overnight issues. Adult diet Regular @[id number]@ 24HR INTAKE/OUTPUT: Intake/Output Summary (Last 24 hours) [...] PROT 6.5 PT/INR: No results for input(s): PROTIME, INR in the last 72 hours. CARDIAC ENZYMES: No results for input(s): TROPONINI in the last 72 hours. Procalcitonin: Lab Results Component Value Date PROCAL 0.03 07/30/2024 COVID-19 PCR: No results for input(s): COVID19 in the last 72 hours. Objective: Vitals: BP 145/86 (BP Location: Left arm, Patient Position: Lying) Pulse 91 Temp 36.7 C (98.1 F) (Temporal) Resp 18 Ht 5' 4 (1.626 m) Wt 89 lb (40.4 kg) [...] prophylaxis: Lovenox daily. Disposition: PT OT recommending group home facility. Possible discharge in next 1 to 2 days. Pending Long arm cast placement -am labs, replace lytes prn -increase activity -DVT prophylaxis: [] Lovenox [] Heparin [] SCDs [x] Encourage ambulation [] Already on Anticoagulation Advance Directive: DNR-CCA Discharge planning: TBD Dejuan Bishop MD Division of Hospitalist Medicine Inpatient Medical Services/[facility] PAGER: [phone] [1] Past Medical History: Diagnosis Date Abnormal [...] not included. Speech-Language Pathology SPEECH LANGUAGE PATHOLOGY [facility] SPEECH THERAPY DIET RECOMMENDATIONS Diet: Regular solids (SOFT CHOICES as NEEDED)and Thin liquids Medications: as tolerated Precautions: - Upright positioning for all PO intake - Slow rate of intake - Small bites/sips Images from the original note were not included. PHYSICAL THERAPY [facility] Initial Evaluation Name/MRN: Gonzalo Deluca ([id number]) Evaluation Date: 07/31/2024 Date of : 1955 Admission Date: 07/30/2024 4:40 PM Age: 68 y.o. Room/Bed: [facility] B Discharge Recommendation: Continue to assess pending progress, Detention Facility Other: TBD at next level of [...] Problem List Diagnosis Date Noted Severe malnutrition ([facility]) ([facility]) 07/31/2024 Adult failure to thrive 07/30/2024 Falls frequently 09/20/2023 Unintentional weight loss 09/20/2023 Debility 09/20/2023 PFO (patent foramen ovale) 09/20/2023 Lumbar compression fracture, closed, initial encounter ([facility]) 02/13/2023 Nondisplaced fracture of neck of left femur ([facility]) 11/06/2022 Other specified complication of vascular prosthetic devices, implants and grafts, initial encounter ([facility]) 08/06/2021 Poor venous access 12/19/2019 H/O: CVA (cerebrovascular accident) 12/14/2019 Malignant neoplasm of exocervix ([facility]) 11/07/2019 S/P hysterectomy 11/07/2019 PNA (pneumonia) 08/02/2019 Leukocytosis 04/13/2018 Shortness of breath 04/13/2018 DDD (degenerative disc disease), cervical 04/12/2018 Recurrent major depression (FORMERLY [facility]) 04/12/2018 Chronic back pain 04/10/2017 COPD (chronic obstructive pulmonary disease) ([facility]) 04/10/2017 Pulmonary nodule 04/10/2017 Sciatica 04/10/2017 [...] Responsibilities: Independent Receives Help From: Family Active Content Assistant: N/A Prior Level of Function Prior Level [...] Raw Score (No Stairs) : 15 JH-HLM -HLM Score: Walked 10 steps or [...] 1437 Time Out 1449 Minutes 12 Jennifer Esparza, PT Patient's Physical Therapy Plan of Care supervision is transferred to a [facility] Physical Therapist. Goals and/or [...] major depression (HCC) Sciatica Thoracic compression fracture ([facility]) Vitamin D deficiency [2] Past Surgical History: Procedure Laterality Date CYSTOSCOPY 01/12/2017 OFFICE PROCEDURE CYSTOSCOPY 02/11/2017 C&P bladder biopsy EYE SURGERY detached retina 1994 HYSTERECTOMY 11/06/2019 ABDOMINAL RADICAL HYSTERECTOMY WITH BSO AND PELVIC LYMPH; DR. ZIYAD MENENDEZ [facility] OTHER SURGICAL HISTORY Left 12/19/2019 Med Port POWER Regular Size OTHER SURGICAL HISTORY Left 11/07/2022 Percutaneous skeltal fixation femoral fracture TUBAL LIGATION 1992 Images from the original note were not included. Speech-Language Pathology SPEECH LANGUAGE PATHOLOGY [facility] Bedside Swallow Evaluation Patient Name: Gonzalo Deluca Evaluation Date: 07/31/2024 Date of : 1955 Admission Date: 07/30/2024 4:40 PM Age: 68 y.o. Room/Bed: B2-254/B2-254 B IMPRESSION: No s/s oropharyngeal dysphagia. No [...] needed. Pt would benefit from skilled acute OR FIRST ASSIST REGISTERED NURSE services Ensure patient tolerance of the recommended [...] be evaluated. Dysphagia History: No history of OR FIRST ASSIST REGISTERED NURSE services in EMR with retrospective chart review Baseline Diet: Regular diet with thin liquids Current Diet: Dietary Orders (From admission, onward) Start Ordered 07/31/24 1031 Supplement:AM Snack, PM Snack; Vanilla Ensure Plus Until discontinued Question Answer Comment Frequency AM Snack Frequency PM Snack Select supplement: Vanilla Ensure Plus 07/31/24 1030 07/31/24 1031 Supplement:HS Snack; Cactus Ensure Plus Until discontinued Question Answer Comment Frequency HS Snack Select supplement: Cactus Ensure Plus 07/31/24 1030 07/30/24 2313 Adult diet Regular Diet effective now Question: Diet type Answer: Regular 07/30/24 2313 Tube Feeding: no Tracheostomy: no Recent Chest [...] Problem List Diagnosis Date Noted Severe malnutrition ([facility]) ([facility]) 07/31/2024 Adult failure to thrive 07/30/2024 Falls frequently 09/20/2023 Unintentional weight loss 09/20/2023 Debility 09/20/2023 PFO (patent foramen ovale) 09/20/2023 Lumbar compression fracture, closed, initial encounter ([facility]) 02/13/2023 Nondisplaced fracture of neck of left femur ([facility]) 11/06/2022 Other specified complication of vascular prosthetic devices, implants and grafts, initial encounter ([facility]) 08/06/2021 Poor venous access 12/19/2019 H/O: CVA (cerebrovascular accident) 12/14/2019 Malignant neoplasm of exocervix ([facility]) 11/07/2019 S/P hysterectomy 11/07/2019 PNA (pneumonia) 08/02/2019 Leukocytosis 04/13/2018 Shortness of breath 04/13/2018 DDD (degenerative disc disease), cervical 04/12/2018 Recurrent major depression ([facility]) 04/12/2018 Chronic back pain 04/10/2017 COPD (chronic obstructive pulmonary disease) ([facility]) 04/10/2017 Pulmonary nodule 04/10/2017 Sciatica 04/10/2017 [...] States was sent by PCP Shortness of [id number] y.o. who presents to the emergency department [...] Pt reported improved po intake at lunch. I actually had an appetite. I haven't been [...] Start: 07/31/24 Expected End: 08/07/24 Therapy Time OR FIRST ASSIST REGISTERED NURSE Individual Minutes Time In: 1518 Time Out: [...] BSO AND PELVIC LYMPH; DR. ZIYAD MENENDEZ [facility] OTHER SURGICAL HISTORY Left 12/19/2019 Med Port POWER Regular Size OTHER SURGICAL HISTORY Left 11/07/2022 Percutaneous skeltal fixation femoral fracture TUBAL LIGATION 1992 Images from the original note were not included. PHYSICAL THERAPY [facility] Name/MRN: Gonzalo Deluca ([id number]) Date: 07/31/2024 Chart review completed. Patient is [...] not here- denies issues -denies assist status- OR FIRST ASSIST REGISTERED NURSE ordered per MNT protocol , will initiate [...] (interosseous) Fluid Accumulation: No significant fluid accumulation Motor And Generator Assembler Strength: na Nutrition Assessment: per MD-CHIEF COMPLAINT [...] start) Anthropometric Measures: Height: 162.6 cm (5' 4) Current Body Weight: 40.4 kg (89 lb) Weight Source: Standing Scale Usual Body Weight: 56.7 kg (125 lb) (08/06/24) % Weight Change (Calculated): -28.8 [place] Body Weight (lbs) (Calculated): 120 lbs [place] Body Weight (Kg) (Calculated): 55 kg % [place] Body Weight (Calculated): 74.2 % BMI (kg/m2) [...] Oral Nutrition Supplement Phillip Bradshaw RD Contact: *[phone] or secure chat documented in this encounter [facility] 08-08-2024 Plan of care note Problem: Knowledge [...] free of falls 08/08/2024 0447 by Sadie Rodriguez RN Outcome: Not Progressing 08/08/2024315 by Sadie Rodriguez RN Outcome: Progressing Problem: Discharge Barriers Goal: My discharge needs are met 08/08/2024446 by Sadie Rodriguez RN Outcome: Not Progressing 08/08/2024315 by Sadie Rodriguez RN Outcome: Not Progressing Problem: Problem Interventions Goal: Assess Nutritional Intake 08/08/2024 0447 by Sadie Rodriguez RN Outcome: Progressing 08/08/2024315 by Sadie Rodriguez RN Outcome: Not Progressing Goal: Dietary Supplements 08/08/2024 0447 by Sadie Rodriguez RN Outcome: Progressing 08/08/2024 031 by Sadie Rodriguez RN Outcome: Not Progressing Goal: Promote nutritional intake 08/08/20247 by Sadie Rodriguez RN Outcome: Progressing 08/08/2024 0316 by Sadie Rodriguez RN Outcome: Not Progressing [facility] 08-08-2024 Plan of care note Problem: Potential [...] Goal: Promote nutritional intake Outcome: Not Progressing [facility] 08-07-2024 Note Formatting of this n ote might be different from the original. Care Management Progress Note -Pt started the appeals process yesterday for denied SNF stay. We now have 72 hours for a response from her insurance. -Notified Dr. Beverly -Updated clinicals faxed to [phone] -If the appeal process is upheld, pt will have to go home with [facility]. -virtual classroom manager to follow and assist as needed. Length of Stay (Days): 6 GMLOS: 5.2 [facility] 08-07-2024 Note Formatting of this n ote might be different from the original. Care Management Progress Note -Pt started the appeals process yesterday for denied SNF stay. We now have 72 hours for a response from her insurance. -Notified Dr. Beverly -Updated clinicals faxed to [phone] -If the appeal process is upheld, pt will have to go home with [facility]. -virtual classroom manager to follow and assist as needed. Length of Stay (Days): 6 GMLOS: 5.2 [facility] 08-07-2024 Note Care Management Prog ress Note -Pt started the appeals process yesterday for denied SNF stay. We now have 72 hours for a response from her insurance. -Notified Dr. Beverly -Updated clinicals faxed to [phone] -If the appeal process is upheld, pt will have to go home with [facility]. -virtual classroom manager to follow and assist as needed. Length of Stay (Days): 6 GMLOS: 5.2 [facility] 08-07-2024 Note Hospitalist Progress Note 08/07/2024 Subjective: Admit Date: [...] desire to eat or drink and feeling just not hungry. The patient's shortness of breath, which is [...] fracture was identified on imaging, described as several months old. The patient's condition has significantly impacted her overall health and functioning, leading to a failure to thrive diagnosis. Her severe malnourishment and unintentional weight loss have contributed to her debilitated state. The combination of her respiratory issues, chronic pain, and nutritional deficits has led to a decline in her overall health status. Recent healthcare interactions include consultations with [facility], palliative care, pulmonology, orthopedic surgery, geriatrics, [...] appeal process to try to get into group home facility. She denies any fever cough or [...] 7 7 LIVER PROFILE:No results for input(s): AST, ALT, [...] Patient Position: Lying) Pulse 77 Temp 36.1 ?C (97 ?F) (Temporal) Resp 18 Ht 5' 4 (1.626 m) Wt 89 lb 1.1 oz (40.4 kg) SpO2 90% BMI 15.29 kg/m? Pulse Ox: SpO2 Av % Min: 90 [...] injury present. No tenderness. Comments: left sided c (more content not included)... [facility] 08-06-2024 Plan of care note Problem: Knowledge [...] Problem Interventions Goal: Dietary Supplements Outcome: Progressing [facility] 08-06-2024 Note Formatting of this n ote might be different from the original. Spoke with pt earlier in the day to to determine if she wants to appeal the P2P decision denying SNF. [place] to go to [place]. She is in the process of trying to get to [facility] through her waiver services. She started [...] Appeals number given to pt to call: [phone]. Appeals fax number: [phone]. Pt was calling as this CM was walking out of her room. virtual classroom manager to follow and assist as needed. [facility] [employer] 08-06-2024 Note Formatting of this n ote might be different from the original. Spoke with pt earlier in the day to to determine if she wants to appeal the P2P decision denying SNF. Pt asked to go to [place]. She is in the process of trying to get to [facility] through her waiver services. She started [...] Appeals number given to pt to call: [phone]. Appeals fax number: [phone]. Pt was calling as this CM was walking out of her room. virtual classroom manager to follow and assist as needed. [facility] [employer] 08-06-2024 Note Formatting of this n ote might be different from the original. Spoke with patients daughter Karishma, regarding dc plans, who states that they would like to ideally get patient into group home and then get patient over to [facility] under Medicaid. This will require an insurance appeal for the group home facility. Shared this discussion with the TCC T [facility] 08-06-2024 Note Formatting of this n ote might be different from the original. Spoke with patients daughter Karishma, regarding dc plans, who states that they would like to ideally get patient into group home and then get patient over to [facility] under Medicaid. This will require an insurance appeal for the group home facility. Shared this discussion with the TCC [facility] 08-06-2024 Plan of care note Problem: Knowledge [...] My discharge needs are met Outcome: Progressing [facility] 08-06-2024 Note Hospitalist Progress Note 08/06/2024 Subjective: Admit Date: [...] desire to eat or drink and feeling just not hungry. The patient's shortness of breath, which is [...] fracture was identified on imaging, described as several months old. The patient's condition has significantly impacted her overall health and functioning, leading to a failure to thrive diagnosis. Her severe malnourishment and unintentional weight loss have contributed to her debilitated state. The combination of her respiratory issues, chronic pain, and nutritional deficits has led to a decline in her overall health status. Recent healthcare interactions include consultations with [facility], palliative care, pulmonology, orthopedic surgery, geriatrics, [...] 5 7 LIVER PROFILE:No results for input(s): AST, ALT, [...] Patient Position: Lying) Pulse 85 Temp 36.6 ?C (97.9 ?F) (Temporal) Resp 18 Ht 5' 4 (1.626 m) Wt 89 lb 1.1 oz (40.4 kg) SpO2 94% BMI 15.29 kg/m? Pulse Ox: SpO2 Av.6 % Min: 91 [...] seconds. Findings: Bruising (Bilateral upper and lower extremity (more content not included)... [facility] 08-06-2024 Plan of care note Problem: Knowledge [...] integrity is maintained or improved Outcome: Progressing T [facility] 08-05-2024 Plan of care note Problem: Knowledge [...] Interventions Goal: Assess Nutritional Intake Outcome: Progressing [facility] 08-05-2024 Note Hospitalist Progress Note 08/05/2024 Subjective: Admit Date: [...] desire to eat or drink and feeling just not hungry. The patient's shortness of breath, which is [...] fracture was identified on imaging, described as several months old. The patient's condition has significantly impacted her overall health and functioning, leading to a failure to thrive diagnosis. Her severe malnourishment and unintentional weight loss have contributed to her debilitated state. The combination of her respiratory issues, chronic pain, and nutritional deficits has led to a decline in her overall health status. Recent healthcare interactions include consultations with [facility], palliative care, pulmonology, orthopedic surgery, geriatrics, [...] 6 5 LIVER PROFILE:No results for input(s): AST, ALT, [...] Vitals: BP 123/78 Pulse 78 Temp 36.7 ?C (98 ?F) (Temporal) Resp 16 Ht 5' 4 (1.626 m) Wt 89 lb 1.1 oz (40.4 kg) SpO2 94% BMI 15.29 kg/m? Pulse Ox: SpO2 Av.4 % Min: 93 [...] Neurological: General: No focal deficit present. Mental Statu (more content not included)... [facility] 08-05-2024 Plan of care note Problem: Knowledge [...] Progressing Goal: Promote nutritional intake Outcome: Progressing T [facility] 08-04-2024 Note Formatting of this n ote might be different from the original. Was updated by attending that peer to peer was denied and patient would need to submit an appeal. The appeal number for [facility] is [phone] and fast appeal fax [phone] is not open on the weekend and this will need to be initiated on Tuesday. Discussed with patient and she wanted to discuss with her daughter prior to deciding to pursue appeal or discharge home with [facility]. She did state that her daughter was interested in getting her into an assistive living and that she has medicaid. Will update weekday TCC to follow.. [facility] 08-04-2024 Note Formatting of this n ote might be different from the original. Was updated by attending that peer to peer was denied and patient would need to submit an appeal. The appeal number for [facility] is [phone] and fast appeal fax [phone] is not open on the weekend and this will need to be initiated on Tuesday. Discussed with patient and she wanted to discuss with her daughter prior to deciding to pursue appeal or discharge home with [facility]. She did state that her daughter was interested in getting her into an assistive living and that she has medicaid. Will update weekday TCC to follow.. [facility] 08-04-2024 Plan of care note Problem: Knowledge [...] My discharge needs are met Outcome: Progressing [facility] 08-04-2024 Note Formatting of this n ote might be different from the original. Called [facility] and spoke with [employer] is requesting peer to peer to be completed by 08/06 at 12 noon central standard time. Number for peer to peer is [phone] option 5. Will need members name, and ID number. Physicians are available 8-5 over the weekend central standard time. Did update attending with information to complete peer to peer. . [facility] 08-04-2024 Note Formatting of this n ote might be different from the original. Called [facility] and spoke with [employer] is requesting peer to peer to be completed by 08/06 at 12 noon central standard time. Number for peer to peer is [phone] option 5. Will need members name, and ID number. Physicians are available 8-5 over the weekend central standard time. Did update attending with information to complete peer to peer. . [facility] 08-04-2024 Note Hospitalist Progress Note 08/04/2024 Subjective: Admit Date: [...] desire to eat or drink and feeling just not hungry. The patient's shortness of breath, which is [...] fracture was identified on imaging, described as several months old. The patient's condition has significantly impacted her overall health and functioning, leading to a failure to thrive diagnosis. Her severe malnourishment and unintentional weight loss have contributed to her debilitated state. The combination of her respiratory issues, chronic pain, and nutritional deficits has led to a decline in her overall health status. Recent healthcare interactions include consultations with [facility], palliative care, pulmonology, orthopedic surgery, geriatrics, [...] Medical History[1] LABS: CBC: Recent Labs 08/04/24 004 WBC 8.2 RBC 3.23* HGB 10.2* HCT 32.5* MCV 100.6* RDW 13.8 PLT 164 BMP: Recent Labs 08/04/2442 NA 142 K 4.2 CL 104 CO2 32* BUN 26* CREATININE 0.55* GLUCOSE 111 CALCIUM 8.4* ANIONGAP 6 LIVER PROFILE:No results for input(s): AST, ALT, [...] Vitals: BP 127/72 Pulse 85 Temp 36.3 ?C (97.3 ?F) (Temporal) Resp 18 Ht 5' 4 (1.626 m) Wt 89 lb 1.1 oz (40.4 kg) SpO2 91% BMI 15.29 kg/m? Pulse Ox: SpO2 Av.8 % Min: 91 [...] independent historian MOD: 3x CAT1 or 1x CA (more content not included)... [facility] 08-04-2024 Plan of care note Problem: Knowledge [...] Progressing Goal: Promote nutritional intake Outcome: Progressing [facility] 08-03-2024 Note [facility] Respiratory Care Department Progress Note As [...] Respiratory in the care of this patient, [facility] 08-03-2024 Note Formatting of this n ote might be different from the original. Tasked weekend correctional case records supervisor to follow for pending auth to [facility]. 7000 will need to be completed at the time of discharge. virtual classroom manager to follow and assist as needed. [facility] 08-03-2024 Note Formatting of this n ote might be different from the original. Tasked weekend correctional case records supervisor to follow for pending auth to [facility]. 7000 will need to be completed at the time of discharge. virtual classroom manager to follow and assist as needed. [facility] 08-03-2024 Note Formatting of this n ote might be different from the original. Sent updated notes to [facility] via [facility] per TCC request. Await review and response regarding ability to accept. TCC notified. [facility] 08-03-2024 Note Formatting of this n ote might be different from the original. Sent updated notes to [facility] via [employer] per TCC request. Await review and response regarding ability to accept. TCC notified. T [facility] 08-03-2024 Note Formatting of this n ote might be different from the original. Care Management Progress Note -Discharge plan is [facility] -Tasked [facility] supervisor mold construction to start auth. -Tasked PAINT PREP TECHNICIAN to send updated clinical notes to facility. -virtual classroom manager to follow for auth approval and assist as needed. Length of Stay (Days): 2 GMLOS: 4.1 [facility] 08-03-2024 Note Formatting of this n ote might be different from the original. Care Management Progress Note -Discharge plan is [facility] -Tasked PAINT PREP TECHNICIAN supervisor mold construction to start auth. -Tasked PAINT PREP TECHNICIAN to send updated clinical notes to facility. -virtual classroom manager to follow for auth approval and assist as needed. Length of Stay (Days): 2 GMLOS: 4.1 [facility] 08-03-2024 Note Care Management Prog ress Note -Discharge plan is [facility] -Tasked PAINT PREP TECHNICIAN supervisor mold construction to start auth. -Tasked PAINT PREP TECHNICIAN to send updated clinical notes to facility. -virtual classroom manager to follow for auth approval and assist as needed. Length of Stay (Days): 2 GMLOS: 4.1 [facility] 08-03-2024 Plan of care note Problem: Knowledge [...] Interventions Goal: Assess Nutritional Intake Outcome: Progressing [facility] 08-03-2024 Note Hospitalist Progress Note 08/03/2024 Subjective: Admit Date: [...] desire to eat or drink and feeling just not hungry. The patient's shortness of breath, which is [...] fracture was identified on imaging, described as several months old. The patient's condition has significantly impacted her overall health and functioning, leading to a failure to thrive diagnosis. Her severe malnourishment and unintentional weight loss have contributed to her debilitated state. The combination of her respiratory issues, chronic pain, and nutritional deficits has led to a decline in her overall health status. Recent healthcare interactions include consultations with [facility], palliative care, pulmonology, orthopedic surgery, geriatrics, [...] 08/03/2024 0906 Last data filed at 08/02/2024 215 Gross per 24 hour Intake 200 ml Output -- Net 200 ml Past Medical History: Medical History[1] LABS: CBC: No results for input(s): WBC, RBC, HGB, HCT, MCV, RDW, PLT in the last 72 hours. BMP:No results for input(s): NA, K, CL, [...] Patient Position: Sitting) Pulse 79 Temp 36.2 ?C (97.2 ?F) (Temporal) Resp 17 Ht 5' 4 (1.626 m) Wt 89 lb (40.4 kg) SpO2 94% BMI 15.28 kg/m? Pulse Ox: SpO2 Av % Min: 94 [...] (each=1). (CAT1) Reviewed 3 or more labs/studies orde (more content not included)... [facility] 08-03-2024 Plan of care note Problem: Knowledge [...] My discharge needs are met Outcome: Progressing [facility] 08-02-2024 Note Palliative Care Prog ress Note Chief Complaint: Gonzalo Deluca is a [...] short of breath when trying to eat. -House Visitor would be helpful. -BMI 15.28 -Albumin-->3.0 -Monitor. [...] Improve or Maintain Function/Quality of Life, Preserve Harrison/Autonomy/Control, and Remain at Home Advanced Directives: DNR-CCA, DNI Functional Assessment: PPS 70% amb reduced; can't do normal work/some disease; full self care; normal or reduced intake; full LOC Prognosis: depends upon goals of care Spiritual Assessment: No spiritual distress identified Bereavement and Grief: To Be Determined PDMP/OARRS Reviewed: Yes-reviewed ROS: See palliative care ROS/ESAS below; All other systems were reviewed and are negative. [place] Symptom Assessment Score [place] Score Pain Score (if non-verbal, add .FLACC [...] Patient Position: Sitting) Pulse 87 Temp 36.5 ?C (97.7 ?F) (Temporal) Resp 16 Ht 5' 4 (1.626 m) Wt 89 lb (40.4 kg) SpO2 93% BMI 15.28 kg/m? Physical Exam Vitals and nursing note reviewed. [...] regular rhythm. Pulses: Normal pulses. Heart sounds: Nor (more content not included)... [facility] 08-02-2024 Note Hospitalist Progress Note 08/02/2024 [phone]: Please page me ([phone]) for patient care issues. [phone]: Please page [facility] night Hospitalist for any issues. Subjective: Admit Date: 07/30/2024 PCP: HERMINIA CASE MD Room#: B2-254/B2-254 B Interval History: Patient is sitting on the bed, still on 5 L nasal cannula saturating well. No signs of respiratory distress noticed Denies any cough or sputum production pain No other significant overnight issues. Adult diet Regular @[id number]@ 24HR INTAKE/OUTPUT: No intake or output data [...] PROT 6.5 PT/INR: No results for input(s): PROTIME, INR in the last 72 hours. CARDIAC ENZYMES: No results for input(s): TROPONINI in the last 72 hours. Procalcitonin: Lab Results Component Value Date PROCAL 0.03 07/30/2024 COVID-19 PCR: No results for input(s): COVID19 in the last 72 hours. Objective: Vitals: BP 123/80 (BP Location: Right arm, Patient Position: Sitting) Pulse 87 Temp 36.5 ?C (97.7 ?F) (Temporal) Resp 16 Ht 5' 4 (1.626 m) Wt 89 lb (40.4 kg) SpO2 93% BMI 15.28 kg/m? Pulse Ox: SpO2 Av.3 % Min: 87 [...] prophylaxis: Lovenox daily. Disposition: PT OT recommending group home facility. Possible discharge in next 1 to 2 days. Pending Long arm cast placement -am labs, replace lytes prn -increase activity -DVT prophylaxis: [] Lovenox [] Heparin [] SCDs [x] Encourage ambulation [] Already on Anticoagulation Advance Directive: DNR-CCA Discharge planning: JAKI Bishop MD Division of Hospitalist Medicine Inpatient Medical Services/[facility] PAGER: [phone] Acute hypoxic respiratory failure [1] Past Medical History: Diagnosis Date Abnormal stress test Acute exacerbation of chronic obstructive pulmonary disease (HCC) 04/12/2018 Allergic rhinitis Arthritis Asthma Bronchitis Cancer (CMS/HCC) (HCC) skin Cervical cancer (HCC) Chest pain COPD (chronic obstructive pulmonary disease) ([facility]) USE OXYGEN 3 L AT NIGHT DDD (degenerative disc disease), cervical Defect, retina, with detachment right DJD (degenerative joint disease), lumbar Emphysema lung (HCC) Former smoker Hematuria SCHEDULED FOR THE PROCEDURE /SURGERY ON 02/11/2017 Hypokalemi (more content not included)... [facility] 08-02-2024 Note Formatting of this n ote might be different from the original. Referral placed to [facility] via Careport per TCC request. Await review and response regarding ability to accept. TCC notified. [facility] 08-02-2024 Note Formatting of this n ote might be different from the original. Referral placed to [facility] via [facility] per TCC request. Await review and response regarding ability to accept. TCC notified. [facility] 08-02-2024 Note Referral placed to [facility] via Careport per TCC request. Await review and response regarding ability to accept. TCC notified. [facility] 08[facility]2024 Note Formatting of this n ote might be different from the original. Care Management Progress Note -Spoke with pt at bedside for SNF choices. -Pt would like referrals sent to [facility], [facility], and [facility]. -Tasked PAINT PREP TECHNICIAN to send those referrals. -Will speak with pt again once facility responses are in for facility of choice. -virtual classroom manager to follow and assist as needed. Length of Stay (Days): 1 GMLOS: No GMLOS Documented -Spoke with pt and she has chosen [facility] as FOC. Informed facility. ADOD is [address] Bishop. Anticipate starting auth tomorrow. virtual classroom manager to follow and assist as needed. [facility] 08-02-2024 Note Formatting of this n ote might be different from the original. Care Management Progress Note -Spoke with pt at bedside for SNF choices. -Pt would like referrals sent to [facility], [facility], and [facility]. -Tasked PAINT PREP TECHNICIAN to send those referrals. -Will speak with pt again once facility responses are in for facility of choice. -virtual classroom manager to follow and assist as needed. Length of Stay (Days): 1 GMLOS: No GMLOS Documented -Spoke with pt and she has chosen [facility] as FOC. Informed facility. ADOD is [address] Bishop. Anticipate starting auth tomorrow. virtual classroom manager to follow and assist as needed. [facility] 08-02-2024 Note Care Management Prog ress Note -Spoke with pt at bedside for SNF choices. -Pt would like referrals sent to [facility], [facility] and [facility]. -Tasked PAINT PREP TECHNICIAN to send those referrals. -Will speak with pt again once facility responses are in for facility of choice. -virtual classroom manager to follow and assist as needed. Length of Stay (Days): 1 GMLOS: No GMLOS Documented -Spoke with pt and she has chosen [facility] as FOC. Informed facility. ADOD is [address] Bishop. Anticipate starting auth tomorrow. virtual classroom manager to follow and assist as needed. [facility] 08-02-2024 Plan of care note Problem: Knowledge [...] My discharge needs are met Outcome: Progressing [facility] 08-02-2024 Hospital Discharg e instructions Gabriela Rosa [...] Information Primary Emergency Contact: Karishma Deluca Address: [address] [place] [address] of [facility] Mobile Relation: Daughter Secondary Emergency Contact: Jace Deluca Mobile Relation: Son Past Surgical History: Past Surgical History: Procedure Laterality Date CYSTOSCOPY 01/12/2017 OFFICE PROCEDURE CYSTOSCOPY 02/11/2017 C&P bladder biopsy EYE SURGERY detached retina 1994 HYSTERECTOMY 11/06/2019 ABDOMINAL RADICAL HYSTERECTOMY WITH BSO AND PELVIC LYMPH; DR. ZIYAD MENENDEZ [facility] OTHER SURGICAL HISTORY Left 12/19/2019 Med Port [...] disease), cervical Leukocytosis Malignant neoplasm of exocervix ([facility]) Recurrent major depression ([facility]) Pulmonary nodule Overview Signed 01/01/2022 6:48 AM [...] (Temporal) Resp 22 Ht 1.626 m (5' 4) Wt 40.4 kg (89 lb) SpO2 95% BMI 15.28 kg/m Last documented pain score (0-10 scale): Last Weight: Wt Readings from Last 1 Encounters: 07/30/24 40.4 kg (89 lb) Mental Status: SHAMA Patient Mental Status: oriented and alert IV Access: SHAMA IV Access: None Nursing Mobility/ADLs: Walking Minimal assistance Transfer Minimal assistance Bathing Minimal assistance Dressing Independent Toileting Minimal assistance Feeding Independent Sexton Helper Minimal assistance Med Delivery yes Wound Care [...] Date: 07/30/24 Discharging to Facility/ Agency Name: [facility] Address: [address] [place] [address] Fax: Dialysis Facility (if applicable) Name: Address: Dialysis Schedule: Phone: Fax: Hyster Driver/Pizza Chef signature: ICIAN SECTION Name: Gonzalo Starkssumeetbenji Prognosis: fair Condition at Discharge: stable Rehab Potential (if transferring to Rehab): good Recommended Labs or Other Treatments After Discharge: CBC and CMP The individual is being admitted to a nursing facility directly from an [facility] or a unit of a [facility] that is not operated by or licensed by [facility] under section 5119.14 or 5160-3-15.1 5 The individual requires the level of services provided by a nursing facility for the condition for which he or she was treated in the hospital and, Physician Certification: I certify the above information and transfer of Gonzalo Deluca is necessary for the continuing treatment of the diagnosis listed and that she requires group home facility for less than 30 days. Update [...] desire to eat or drink and feeling just not hungry. The patient's shortness of breath, which is [...] fracture was identified on imaging, described as several months old. The patient's condition has significantly impacted her overall health and functioning, leading to a failure to thrive diagnosis. Her severe malnourishment and unintentional weight loss have contributed to her debilitated state. The combination of her respiratory issues, chronic pain, and nutritional deficits has led to a decline in her overall health status. Recent healthcare interactions include consultations with [facility], palliative care, pulmonology, orthopedic surgery, geriatrics, [...] respiratory failure and severe emphysema. Plan: - OR FIRST ASSIST REGISTERED NURSE evaluation: recommended regular solids with thin liquids, [...] adjustments PHYSICIAN SIGNATURE: documented in this encounter [facility] 08-02-2024 Plan of care note Problem: Knowledge [...] My discharge needs are met Outcome: Progressing [facility] 08-01-2024 Note Hospitalist Progress Note 08/01/2024 [phone]: Please page me ([phone]) for patient care issues. [phone]: Please page [facility] night Hospitalist for any issues. Subjective: Admit Date: 07/30/2024 PCP: HERMINIA CASE MD Room#: B2-254/B2-254 B Interval History: Patient is sitting on the chair, denies any chest pain shortness of breath or palpitations Denies any upper extremity pain. No other significant overnight issues. Adult diet Regular @[id number]@ 24HR INTAKE/OUTPUT: Intake/Output Summary (Last 24 hours) [...] PROT 6.5 PT/INR: No results for input(s): PROTIME, INR in the last 72 hours. CARDIAC ENZYMES: No results for input(s): TROPONINI in the last 72 hours. Procalcitonin: Lab Results Component Value Date PROCAL 0.03 07/30/2024 COVID-19 PCR: No results for input(s): COVID19 in the last 72 hours. Objective: Vitals: BP 114/79 Pulse 91 Temp 36.9 ?C (98.5 ?F) (Temporal) Resp 18 Ht 5' 4 (1.626 m) Wt 89 lb (40.4 kg) SpO2 90% BMI 15.28 kg/m? Pulse Ox: SpO2 Av.3 % Min: 90 [...] prophylaxis: Lovenox daily. Disposition: PT OT recommending group home facility. Possible discharge in next 1 to 2 days. Pending Long arm cast placement -am labs, replace lytes prn -increase activity -DVT prophylaxis: [] Lovenox [] Heparin [] SCDs [x] Encourage ambulation [] Already on Anticoagulation Advance Directive: DNR-CCA Discharge planning: JEZD Dejuanbryanna Bishop MD Division of Hospitalist Medicine Inpatient Medical Services/[facility] PAGER: [phone] [1] Past Medical History: Diagnosis Date Abnormal [...] compression fracture (HCC) Vitamin D deficiency [2] (more content not included)... [facility] 08-01-2024 Note Formatting of this n ote [...] case she decides before then on choices. -virtual classroom manager to follow and assist as needed. Length of Stay (Days): 1 GMLOS: No GMLOS Documented [facility] 08-01-2024 Note Formatting of this n ote [...] case she decides before then on choices. -virtual classroom manager to follow and assist as needed. Length of Stay (Days): 1 GMLOS: No GMLOS Documented T [facility] 08-01-2024 Note Care Management Prog ress Note -Met with pt at bedside. Introduced self and role. -PT/OT recommending SNF. Pt is agreeable. -SNF list given to pt for her to look over for SNF choices. -Will follow up tomorrow for SNF choices. She also has contact information for CM in case she decides before then on choices. -virtual classroom manager to follow and assist as needed. Length of Stay (Days): 1 GMLOS: No GMLOS Documented [facility] 08-01-2024 Consult note Formatting of th is note is different from the original. [facility] [place] [address] [place] [id number] Patient - Gonzalo Deluca - 1955 Date [...] hematemesis melena hematuria Apparently not seeing any roustabout supervisor recently Was on Dulera Spiriva and rescue [...] - Unmet Transportation Needs (06/06/2024) Received from [facility] PRAPARE - Transportation Lack of Transportation (Medical): Yes Lack of Transportation (Non-Medical): No Physical Activity: Insufficiently Active (07/31/2024) Exercise Vital Sign Days of Exercise per Week: 3 days Minutes of Exercise per Session: 20 min Stress: No Stress Concern Present (07/31/2024) [employer] [place] [facility] - Occupational Stress Questionnaire Feeling of Stress : Only a little Recent Concern: Stress - Stress Concern Present (06/06/2024) Received from [facility]ational Health - Occupational Stress Questionnaire Feeling of Stress : To some extent Social Connections: Socially Isolated (07/31/2024) Social Connection and Isolation Panel [NHANES] Frequency of Communication with Friends and Family: Three times a week Frequency of Social Gatherings with Friends and Family: Three times a week Attends Anabaptism Services: Never Active Member of Clubs or [...] itching, open sores Vitals height is 5' 4 (1.626 m) and weight is 89 lb [...] 325 ml Output -- Net 325 ml @[id number]@ Physical Exam General appearance: Awake, alert, no [...] 21 INR PTT No results found for: PTT Cultures Radiology Exam Date/Time: 07/31/2024 15:25 Procedure: [...] be severe no current PFT available on [facility] 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 [...] prosthetic devices, implants and grafts, initial encounter ([facility]) Chronic back pain COPD (chronic obstructive pulmonary disease) ([facility]) DDD (degenerative disc disease), cervical Leukocytosis Malignant neoplasm of exocervix ([facility]) Recurrent major depression ([facility]) Pulmonary nodule S/P hysterectomy Sciatica Shortness of breath Supplemental oxygen dependent PNA (pneumonia) H/O: CVA (cerebrovascular accident) Former smoker Nondisplaced fracture of neck of left femur ([facility]) Lumbar compression fracture, closed, initial encounter ([facility]) Severe malnutrition (CMS/HCC) ([facility]) Falls frequently Unintentional weight loss Debility PFO (patent foramen ovale) Adult failure to thrive [2] Past Medical History: Diagnosis Date Abnormal stress test Acute exacerbation of chronic obstructive pulmonary disease ([facility]) 04/12/2018 Allergic rhinitis Arthritis Asthma Bronchitis Cancer (CMS/HCC) ([facility]) skin Cervical cancer ([facility]) Chest pain COPD (chronic obstructive pulmonary [...] BSO AND PELVIC LYMPH; DR. ZIYAD MENENDEZ [facility] OTHER SURGICAL HISTORY Left 12/19/2019 Med Port [...] [8] Allergies Allergen Reactions Pollen Extract Unknown [facility] 08-01-2024 Consult note Formatting of th is note is different from the original. [facility] [place] [place] [address], [place] [address] [id number] 1955 Date of Admission - 07/30/2024 [...] hematemesis melena hematuria Apparently not seeing any roustabout supervisor recently Was on Dulera Spiriva and rescue [...] - Unmet Transportation Needs (06/06/2024) Received from [facility] PRAPARE - Transportation Lack of Transportation (Medical): Yes Lack of Transportation (Non-Medical): No Physical Activity: Insufficiently Active (07/31/2024) Exercise Vital Sign Days of Exercise per Week: 3 days Minutes of Exercise per Session: 20 min Stress: No Stress Concern Present (07/31/2024) [employer] [place] [facility] [employer] - Occupational Stress Questionnaire Feeling of Stress : Only a little Recent Concern: Stress - Stress Concern Present (06/06/2024) Received from [facility]ational Health - Occupational Stress Questionnaire Feeling of Stress : To some extent Social Connections: Socially Isolated (07/31/2024) Social Connection and Isolation Panel [NHANES] Frequency of Communication with Friends and Family: Three times a week Frequency of Social Gatherings with Friends and Family: Three times a week Attends Anabaptism Services: Never Active Member of Clubs or [...] itching, open sores Vitals height is 5' 4 (1.626 m) and weight is 89 lb [...] 325 ml Output -- Net 325 ml @[id number]@ Physical Exam General appearance: Awake, alert, no [...] 21 INR PTT No results found for: PTT Cultures Radiology Exam Date/Time: 07/31/2024 15:25 Procedure: [...] be severe no current PFT available on [facility] 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 [...] prosthetic devices, implants and grafts, initial encounter ([facility]) Chronic back pain COPD (chronic obstructive pulmonary disease) ([facility]) DDD (degenerative disc disease), cervical Leukocytosis Malignant neoplasm of exocervix ([facility]) Recurrent major depression ([facility]) Pulmonary nodule S/P hysterectomy Sciatica Shortness of breath Supplemental oxygen dependent PNA (pneumonia) H/O: CVA (cerebrovascular accident) Former smoker Nondisplaced fracture of neck of left femur ([facility]) Lumbar compression fracture, closed, initial encounter ([facility]) Severe malnutrition (CMS/HCC) ([facility]) Falls frequently Unintentional weight loss Debility PFO (patent foramen ovale) Adult failure to thrive [2] Past Medical History: Diagnosis Date Abnormal stress test Acute exacerbation of chronic obstructive pulmonary disease ([facility]) 04/12/2018 Allergic rhinitis Arthritis Asthma Bronchitis Cancer (CMS/HCC) ([facility]) skin Cervical cancer ([facility]) Chest pain COPD (chronic obstructive pulmonary disease) ([facility]) USE OXYGEN 3 L AT NIGHT DDD (degenerative disc disease), cervical Defect, retina, with detachment right DJD (degenerative joint disease), lumbar Emphysema lung ([facility]) Former smoker Hematuria SCHEDULED FOR THE [...] not here- denies issues -denies assist status- OR FIRST ASSIST REGISTERED NURSE ordered per MNT protocol , will initiate [...] (interosseous) Fluid Accumulation: No significant fluid accumulation Motor And Generator Assembler Strength: na Associated Order(s): IP CONSULT TO [...] -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 -House Visitor would be helpful. -BMI 15.28 -Albumin-->3.0 -Monitor. [...] with primary attending or other consultants, Electronic small order cutter of medications, tests or procedures, Obtaining and/or [...] detailed in the note above. Imelda Bernard, SEED LABORATORY TECHNICIAN - SHOE TURNER Palliative Care Assessments: Goals of care: Continue Current Management, Live Longer, extend life as much as possible, Improve or Maintain Function/Quality of Life, Preserve Harrison/Autonomy/Control, and Remain at Home Advanced Directives: DNR Functional Assessment: PPS 70% amb reduced; can't do normal work/some disease; full self care; normal or reduced intake; full LOC Prognosis: depends upon goals of care Spiritual Assessment: No spiritual distress identified Bereavement and Grief: To Be Determined PDMP/OARRS Reviewed: Yes-reviewed Social history: Marital status: Children: not addressed Living status: with daughter Work history: retired [employer] status: No Anabaptism sharla: None ROS: See palliative care ROS/ESAS below; All other systems were reviewed and are negative. [place] Symptom Assessment Score [place] Score Pain Score (if non-verbal, add .FLACC [...] (96.5 F) (Temporal) Resp 14 Ht 5' 4 (1.626 m) Wt 89 lb (40.4 kg) [...] Note Initiated: yes Imelda Bernard, DB - NADE[place] [1] Past Medical History: Diagnosis [...] BSO AND PELVIC LYMPH; DR. ZIYAD MENENDEZ [facility] OTHER SURGICAL HISTORY Left 12/19/2019 Med Port [...] EDT Associated Order(s): IP CONSULT TO GERIATRICS [facility] Geriatric Medicine Inpatient Consult Service Admission Date: 07/30/2024 Admission Status: INPATIENT Chief Complaint: weight loss Reason for Appointment Geriatrics consulted for falls at home, failure to thrive Assessment & Plan Principal Problem: Adult failure [...] at [facility] for more in depth [...] fracture, Vitamin D deficiency, anxiety, presented to [facility] 07[facility]24 with complaints of weight loss [...] memory issues for a year with progression. [place] she was managing her medications ok. Daughter [...] (59.3 ttl pk-yrs) Types: Cigarettes Start date: 1973 Quit date: 09/20/2011 Years since quittin.8 Passive [...] F) (Temporal) Resp (!) 26 Ht 5' 4 (1.626 m) Wt 89 lb (40.4 kg) [...] 350 ms QTC Interval 439 ms P [place] 53 degrees QRS [place] -35 degrees T Wave [place] 43 degrees [place] Interval 137 ms CBC auto differential Collection [...] 8.0 pH Leukocytes, Urine 25 (A) Negative Sadnra/uL Nitrite, Urine Negative Negative Protein, Urine 10 [...] TSH 1.017 09/21/2023 No components found for: B12 No results found for: VITD25 Reviewed: active problem list, medication list, allergies, [...] q12h, Lauren Serna MD, 20 mg at 07/31/24622 mirtazapine (Remeron) tablet 15 mg, 15 mg, Oral, Nightly, Lauren Serna MD, 15 mg at 07/31/2430 mometasone-formoterol (Dulera 200) 200-5 MCG/ACT inhaler 2 puff, 2 puff, Inhalation, BID, Lauren Serna MD, 2 puff at 07/31/2431 montelukast (Singulair) tablet 10 mg, 10 mg, [...] PRN, Lauren Serna MD, 5 mg at 07/31/2451 PARoxetine (Paxil) tablet 20 mg, 20 mg, [...] 09/19/2023 Osteoporosis Palpitations Pneumonia Recurrent major depression ([facility]) Sciatica Thoracic compression fracture ([facility]) Vitamin D deficiency [4] Past Surgical History: Procedure Laterality Date CYSTOSCOPY 01/12/2017 OFFICE PROCEDURE CYSTOSCOPY 02/11/2017 C&P bladder biopsy EYE SURGERY detached retina 1994 HYSTERECTOMY 11/06/2019 ABDOMINAL RADICAL HYSTERECTOMY WITH BSO AND PELVIC LYMPH; DR. ZIYAD MENENDEZ [facility] OTHER SURGICAL HISTORY Left 12/19/2019 Med Port [...] close to the wall and bumped the elbow. Since she was being admitted, she stated that she thought she might as well have the elbow looked at as well. Current x-rays show a supracondylar fracture. Past [...] Resp (!) 26 Ht 1.626 m (5' 4) Wt 40.4 kg (89 lb) SpO2 93% [...] 80* MG 1.9 PT/INR:No results for input(s): PROTIME, INR in the last 72 hours. APTT:No results for input(s): APTT in the last 72 hours. LIVER PROFILE: [...] cancer Neg Hx documented in this encounter [facility] 08-01-2024 Note OCCUPATIONAL THERAPY [facility] Initial Evaluation Name/MRN: Gonzalo Deluca ([id number]) Evaluation Date: 08/01/2024 Date of : 1955 Admission Date: 07/30/2024 4:40 PM Age: 68 y.o. Room/Bed: B2-254/B2-254 B Having reviewed the treatment plan and goals for this patient, I certify that the plan of care below is medically necessary and appropriate. Discharge Recommendation: Detention Facility, Continue to assess pending progress Equipment Needed: No Assessment IMPRESSION: Pt admitted to ED on 07/30 with significant weight loss, SOB, and failure to thrive. She recently fell and had L elbow pain. Her arm was discolored and swollen. Xrays now indicate a supracondylar fx. Pt is in a long arm cast and is NWBing L UE. Prior to admission, pt lived with her daughter and performed ADLs and mobility independently. Upon eval, pt required supervision for bed mobility, CGA for transfers, CGA for mobility, and SBA-min A for ADLs. Pt is mostly limited by significant SOB. Sop2 noted to desaturate to 82% on 3L, which is her baseline O2. Pt demo's poor endurance and activity tolerance at this time. Pt would benefit from skilled OT services in order to increase safety and independence in occupational tasks. Recommend SNF pending progress upon DC. Admitting Diagnosis: adult failure to thrive Performance Deficits /Impairments: Increased Pain, Decreased Functional Mobility, Decreased ADL status, Decreased Strength, Decreased Endurance, Decreased Balance, Decreased ROM, Decreased High Level IADLs, and Decreased Fine Motor Control Prognosis: Good Decision Making: Medium Complexity Subjective Pt very pleasant and agreeable to therapy eval. Pain: 0-10 pain scale: 5/10 Location: L UE Past Medical History: Medical History[1] Past Surgical History: Surgical History[2] Admission Diagnosis: Patient Active Problem List Diagnosis Date Noted Severe malnutrition (CMS/HCC) (HCC) 07/31/2024 Adult failure to thrive 07/30/2024 Falls frequently 09/20/2023 Unintentional weight loss 09/20/2023 Debility 09/20/2023 PFO (patent foramen ovale) 09/20/2023 Lumbar compression fracture, closed, initial encounter ([facility]) 02/13/2023 Nondisplaced fracture of neck of left femur ([facility]) 11/06/2022 Other specified complication of vascular prosthetic devices, implants and grafts, initial encounter ([facility]) 08/06/2021 Poor venous access 12/19/2019 H/O: CVA (cerebrovascular accident) 12/14/2019 Malignant neoplasm of exocervix ([facility]) 11/07/2019 S/P hysterectomy 11/07/2019 PNA (pneumonia) 08/02/2019 Leukocytosis 04/13/2018 Shortness of breath 04/13/2018 DDD (degenerative disc disease), cervical 04/12/2018 Recurrent major depression ([facility]) 04/12/2018 Chronic back pain 04/10/2017 COPD (chronic obstructive pulmonary disease) ([facility]) 04/10/2017 Pulmonary nodule 04/10/2017 Sciatica 04/10/2017 [...] Responsibilities: Independent Receives Help From: Family Active Content Assistant: N/A Prior Level of Function Prior Level of ADL Function: Independent Prior Level of Mobility: Independent; Device: Straight Cane Prior Level of Transfers: Independent Objective ADLs LE Dressing: SBA Pt simulated bathroom level toileting with SBA but did not need to void during the session. Anticipate increased difficulty with ADLs d/t NWBing of the L UE with ROM restrictions d/t cast. Upper Extremity Assessment AROM: R UE WFL; L UE limited d/t cast PROM: Not assessed this session Strength: R UE WFL; L UE not tested d/t NWBing Bed Mobility Supine to sit: Supervision Sit to supine: Supervision Scooting: Supervision Pt able to complete bed mob (more content not included)... 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 -House Visitor would be helpful. -BMI 15.28 -Albumin-->3.0 -Monitor. [...] emphysema. -Pulmonology consulted, await recs. Discussed with RADIO COMMUNICATIONS MECHANICIAN Leann this AM. She will need follow [...] Improve or Maintain Function/Quality of Life, Preserve Harrison/Autonomy/Control, and Remain at Home Advanced Directives: DNR Functional Assessment: PPS 70% amb reduced; can't do normal work/some disease; full self care; normal or reduced intake; full LOC Prognosis: depends upon goals of care Spiritual Assessment: No spiritual distress identified Bereavement and Grief: To Be Determined PDMP/OARRS Reviewed: Yes-reviewed ROS: See palliative care ROS/ESAS below; All other systems were reviewed and are negative. [place] Symptom Assessment Score [place] Score Pain Score (if non-verbal, add .FLACC [...] Objective: BP 114/79 Pulse 91 Temp 36.9 ?C (98.5 ?F) (Temporal) Resp 18 Ht 5' 4 (1.626 m) Wt 89 lb (40.4 kg) SpO2 90% BMI 15.28 kg/m? Physical Exam Vitals and nursing note reviewed. [...] reactive to light. Cardiovascular: Rate and Rhythm: (more content not included)... [facility] 08-01-2024 Plan of care note Problem: Knowledge [...] My discharge needs are met Outcome: Progressing [facility] 07-31-2024 Note Hospitalist Progress Note 07/31/2024 [id number]: Please page me ([phone]) for patient care issues. [phone]: Please page IMS night Hospitalist for any issues. Subjective: Admit Date: 07/30/2024 PCP: HERMINIA CASE MD Room#: B2-254/B2-254 B Interval History: Patient is sitting on the bed, denies any chest pain or shortness of breath. Denies any abdominal pain nausea or vomitings No other significant overnight issues. Adult diet Regular @[id number]@ 24HR INTAKE/OUTPUT: Intake/Output Summary (Last 24 hours) [...] PROT 6.5 PT/INR: No results for input(s): PROTIME, INR in the last 72 hours. CARDIAC ENZYMES: No results for input(s): TROPONINI in the last 72 hours. Procalcitonin: Lab Results Component Value Date PROCAL 0.03 07/30/2024 COVID-19 PCR: No results for input(s): COVID19 in the last 72 hours. Objective: Vitals: BP 145/86 (BP Location: Left arm, Patient Position: Lying) Pulse 91 Temp 36.7 ?C (98.1 ?F) (Temporal) Resp 18 Ht 5' 4 (1.626 m) Wt 89 lb (40.4 kg) SpO2 96% BMI 15.28 kg/m? Pulse Ox: SpO2 Av.6 % Min: 92 [...] prophylaxis: Lovenox daily. Disposition: PT OT recommending group home facility. Possible discharge in next 1 to 2 days. Pending Long arm cast placement -am labs, replace lytes prn -increase activity -DVT prophylaxis: [] Lovenox [] Heparin [] SCDs [x] Encourage ambulation [] Already on Anticoagulation Advance Directive: DNR-CCA Discharge planning: TBD eDjuan Bishop MD Division of Hospitalist Medicine Inpatient Medical Services/[facility] PAGER: [phone] [1] Past Medical History: Diagnosis Date Abnormal [...] Pneumonia Recurrent major depression (HCC) Sciatica Thoracic compressi (more content not included)... [facility] 07-31-2024 Note PHYSICAL THERAPY [facility] Initial Evaluation Name/MRN: Gonzalo Deluca ([id number]) Evaluation Date: 07/31/2024 Date of : 1955 Admission Date: 07/30/2024 4:40 PM Age: 68 y.o. Room/Bed: [facility]254/[facility] B Discharge Recommendation: Continue to assess pending progress, Detention Facility Other: TBD at next level of [...] Problem List Diagnosis Date Noted Severe malnutrition ([facility]) ([facility]) 07/31/2024 Adult failure to thrive 07/30/2024 Falls frequently 09/20/2023 Unintentional weight loss 09/20/2023 Debility 09/20/2023 PFO (patent foramen ovale) 09/20/2023 Lumbar compression fracture, closed, initial encounter ([facility]) 02/13/2023 Nondisplaced fracture of neck of left femur ([facility]) 11/06/2022 Other specified complication of vascular prosthetic devices, implants and grafts, initial encounter ([facility]) 08/06/2021 Poor venous access 12/19/2019 H/O: CVA (cerebrovascular accident) 12/14/2019 Malignant neoplasm of exocervix ([facility]) 11/07/2019 S/P hysterectomy 11/07/2019 PNA (pneumonia) 08/02/2019 Leukocytosis 04/13/2018 Shortness of breath 04/13/2018 DDD (degenerative disc disease), cervical 04/12/2018 Recurrent major depression ([facility]) 04/12/2018 Chronic back pain 04/10/2017 COPD (chronic obstructive pulmonary disease) ([facility]) 04/10/2017 Pulmonary nodule 04/10/2017 Sciatica 04/10/2017 [...] Responsibilities: Independent Receives Help From: Family Active Content Assistant: N/A Prior Level of Function Prior Level of ADL Function: Independent Prior Level of Mobility: Independent; Device: Straight Cane Prior Level of Transfers: Independent Objective Lower Extremity Assessment AROM: WFL Strength: Pt demonstrates appropriate B LE and quad strength in order to safely participate in OOB mobility, generalized weakness noted Sensation: WFL Bed Mobility: Supine to sit: SBA Sit to sanchez (more content not included)... [facility] 07-31-2024 Note Formatting of this n ote might be different from the original. Ssis Etl Developer following case for Discharge Needs. T [facility] 07-31-2024 Note Formatting of this n ote might be different from the original. Ssis Etl Developer following case for Discharge Needs. T [facility] 07-31-2024 Consult note Associated Order (s): IP CONSULT TO DIETITIAN Images from the original note were not included. Nutrition Assessment Type and Reason for Visit: Initial, Consult (poor po - needs high calorie supplement) Nutrition Recommendations/Plan: Suggest to continue regular diet to promote intake. 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 -House Visitor would be helpful. -BMI 15.28 -Albumin-->3.0 -Monitor. [...] with primary attending or other consultants, Electronic small order cutter of medications, tests or procedures, Obtaining and/or [...] detailed in the note above. Imelda Bernard, SEED LABORATORY TECHNICIAN - SHOE TURNER Palliative Care Assessments: Goals of care: Continue Current Management, Live Longer, extend life as much as possible, Improve or Maintain Function/Quality of Life, Preserve Harrison/Autonomy/Control, and Remain at Home Advanced Directives: DNR [...] with daughter Work history: retired status: No Anabaptism sharla: None ROS: See palliative care ROS/ESAS below; All other systems were reviewed and are negative. [place] Symptom Assessment Score [place] Score Pain Score (if non-verbal, add .FLACC [...] (96.5 F) (Temporal) Resp 14 Ht 5' 4 (1.626 m) Wt 89 lb (40.4 kg) [...] Note Initiated: yes Imelda Bernard, DB - NADEEM [1] Past Medical History: Diagnosis [...] BSO AND PELVIC LYMPH; [facility] OTHER SURGICAL HISTORY Left 12/19/2019 Med [...] العراقي MD at 08/01/2024 5:26 PM EDT [facility] 07-31-2024 Note Formatting of this n ote is different from the original. Images from the original note were not included. [facility] Palliative Care Transitions of Care [...] short of breath when trying to eat. -House Visitor would be helpful. -BMI 15.28 -Albumin-->3.0 -Monitor. [...] Skilled Rehab Facility FACILITY/HOME CARE AGENCY NAME: [facility] Follow up with [facility] on office to call patient. [...] SIGNED: DB Aggarwal CNP 08/03/2024, 10:20 AM [facility] 07-31-2024 Note Formatting of this n ote is different from the original. Images from the original note were not included. [facility] Palliative Care Transitions of Care Note Gonzalo Deluca : 1955 ADMIT DATE: 07/30/2024 DISCHARGE DATE: TBD PRIMARY CARE PHYSICIAN: HERMINIA CASE MD CODE STATUS: DNR-CCA DISCHARGE DIAGNOSES: Principal Problem: Adult failure to thrive HOSPITAL COURSE: Goals of care Gonzalo Deluca retains capacity for medical decision-making -legal surrogate decision maker is unknown, daughter listed in emergency contacts-->Karishma Guyahir ( ) -Would encourage completion of HCPOA [...] short of breath when trying to eat. -House Visitor would be helpful. -BMI 15.28 -Albumin-->3.0 -Monitor. [...] Skilled Rehab Facility FACILITY/HOME CARE AGENCY NAME: [facility] Follow up with [facility] office to call patient. [...] SIGNED: DB Aggarwal CNP 08/03/2024, 10:20 AM [facility] 07-31-2024 Note Formatting of this n ote [...] scheduled appointment 93% on 5L last read [facility] 07-31-2024 Note Formatting of this n ote [...] scheduled appointment 93% on 5L last read [facility] 07-31-2024 Consult note Associated Order (s): IP CONSULT TO GERIATRICS [facility] Geriatric Medicine Inpatient Consult Service Admission Date: 07/30/2024 Admission Status: INPATIENT Chief Complaint: weight loss Reason for Appointment Geriatrics consulted for falls at home, failure to thrive Assessment & Plan Principal Problem: Adult failure [...] at [facility] for more in depth [...] fracture, Vitamin D deficiency, anxiety, presented to [facility] on 07/30/24 with complaints of weight loss [...] memory issues for a year with progression. [place] she was managing her medications ok. Daughter [...] F) (Temporal) Resp (!) 26 Ht 5' 4 (1.626 m) Wt 89 lb (40.4 kg) [...] 350 ms QTC Interval 439 ms P Wood[place] 53 degrees QRS Wood[place] -35 degrees T Wave [place] 43 degrees LA Interval 137 ms CBC auto differential Collection [...] 213 - 816 pg/mL Folate Collection Time: 05/12/25 5:29 PM Result Value Ref Range FOLATE [...] TSH 1.017 09/21/2023 No components found for: B12 No results found for: VITD25 Reviewed: active problem list, medication list, allergies, [...] Nightly, Lauren Serna MD, 15 mg at 07/31/2430 mometasone-formoterol (Dulera 200) 200-5 MCG/ACT inhaler 2 [...] Bronchitis Cancer (CMS/HCC) (HCC) skin Cervical cancer ([facility]) Chest pain COPD (chronic obstructive pulmonary disease) ([facility]) USE OXYGEN 3 L AT NIGHT DDD (degenerative disc disease), cervical Defect, retina, with detachment right DJD (degenerative joint disease), lumbar Emphysema lung ([facility]) Former smoker Hematuria SCHEDULED FOR THE PROCEDURE /SURGERY ON 02/11/2017 Hypokalemia Lung nodules Near syncope 09/19/2023 Osteoporosis Palpitations Pneumonia Recurrent major depression ([facility]) Sciatica Thoracic compression fracture ([facility]) Vitamin D deficiency [4] Past Surgical History: Procedure Laterality Date CYSTOSCOPY 01/12/2017 OFFICE PROCEDURE CYSTOSCOPY 02/11/2017 C&P bladder biopsy EYE SURGERY detached retina 1994 HYSTERECTOMY 11/06/2019 ABDOMINAL RADICAL HYSTERECTOMY WITH BSO AND PELVIC LYMPH; DR. ZIYAD MENENDEZ [facility] OTHER SURGICAL HISTORY Left 12/19/2019 Med Port POWER Regular Size OTHER SURGICAL HISTORY Left 11/07/2022 Percutaneous skeltal fixation femoral fracture TUBAL LIGATION 1992 [5] Family History Problem Relation Name Age of Onset Colon cancer Neg Hx Ovarian cancer Neg Hx Cancer Mother breast- to liver Cancer Sister breast Cancer Father lung to brain No Known Problems Brother Uterine cancer Neg Hx [facility] 07-31-2024 Consult note Associated Order (s): Inpatient consult to orthopaedic surgery--left elbow fracture Inpatient consult to orthopaedic surgery--left elbow fracture Consult performed by: Betsey Gresham MD Consult ordered by: aLuren Serna MD Consult Note Date:07/31/2024 Patient Name:Gonzalo [...] close to the wall and bumped the elbow. Since she was being admitted, she stated that she thought she might as well have the elbow looked at as well. Current x-rays show a supracondylar fracture. Past [...] Resp (!) 26 Ht 1.626 m (5' 4) Wt 40.4 kg (89 lb) SpO2 93% [...] 80* MG 1.9 PT/INR:No results for input(s): PROTIME, INR in the last 72 hours. APTT:No results for input(s): APTT in the last 72 hours. LIVER PROFILE: [...] BSO AND PELVIC LYMPH; DR. ZIYAD MENENDEZ [facility] OTHER SURGICAL HISTORY Left 12/19/2019 Med Port POWER Regular Size OTHER SURGICAL HISTORY Left 11/07/2022 Percutaneous skeltal fixation femoral fracture TUBAL LIGATION 1992 [3] Family History Problem Relation Name Age of Onset Colon cancer Neg Hx Ovarian cancer Neg Hx Cancer Mother breast- to liver Cancer Sister breast Cancer Father lung to brain No Known Problems Brother Uterine cancer Neg Hx [facility] 07-30-2024 History and physical note History and Physical [facility] Gonzalo Deluca : 1955 AGE 68 y.o. [...] Allergic rhinitis Arthritis Asthma Bronchitis Cancer (CMS/HCC) ([facility]) skin Cervical cancer (HCC) Chest pain COPD (chronic obstructive pulmonary disease) ([facility]) USE OXYGEN 3 L AT NIGHT DDD (degenerative disc disease), cervical Defect, retina, with detachment right DJD (degenerative joint disease), lumbar Emphysema lung ([facility]) Former smoker Hematuria SCHEDULED FOR THE PROCEDURE /SURGERY ON 02/11/2017 Hypokalemia Lung nodules Near syncope 09/19/2023 Osteoporosis Palpitations Pneumonia Recurrent major depression ([facility]) Sciatica Thoracic compression fracture ([facility]) Vitamin D deficiency Past Surgical History: [...] (99.4 F) (Temporal) Resp 20 Ht 5' 4 (1.626 m) Wt 89 lb (40.4 kg) [...] 07/30/2024 350 QTC Interval 07/30/2024 439 P Woodland 07/30/2024 53 QRS [place] 07/30/2024 -35 T Wave [place] 07/30/2024 43 LA Interval 07/30/2024 137 Auto WBC 07/30/2024 8.9 [...] QT Interval 350 QTC Interval 439 P Wood[place] 53 QRS Wood[place] -35 T Wave [place] 43 LA Interval 137 Impression Sinus rhythm Left axis [...] placed in a splint. She has seen [facility] orthopedics in the past they will be [...] Time spent on admission 07/30/2024 Gonzalo Deluca [id number] Any scheduled follow up appointments Future Appointments Date Time Provider Department Center 09/04/2024 2:30 PM [facility] 1 [facility] None Extended Emergency Contact Information Primary Emergency Contact: Karishma Deluca Address: [address] [place] [address] of [facility] Mobile Relation: Daughter Secondary Emergency Contact: Jace Deluca Mobile Relation: Son Portions of this note may be electronically transcribed. Please forward a copy of this H&P to the primary care physician. Kauli Work Phone: 07-30-2024 Note History and Physical [facility] Gonzalo Deluca : 1955 AGE 68 y.o. [...] Chest pain COPD (chronic obstructive pulmonary disease) ([facility]) USE OXYGEN 3 L AT NIGHT DDD (degenerative disc disease), cervical Defect, retina, with detachment right DJD (degenerative joint disease), lumbar Emphysema lung ([facility]) Former smoker Hematuria SCHEDULED FOR THE PROCEDURE /SURGERY ON 02/11/2017 Hypokalemia Lung nodules Near syncope 09/19/2023 Osteoporosis Palpitations Pneumonia Recurrent major depression ([facility]) Sciatica Thoracic compression fracture ([facility]) Vitamin D deficiency Past Surgical History: [...] (Flonase) 50 MCG/ACT nasal spray 2 sprays (more content not included)... [facility] 07-30-2024 History and physical note History and Physical [facility] Gnozalo Deluca : 1955 AGE 68 y.o. YEARS [...] Bronchitis Cancer (CMS/HCC) (HCC) skin Cervical cancer ([facility]) Chest pain COPD (chronic obstructive pulmonary disease) ([facility]) USE OXYGEN 3 L AT NIGHT DDD (degenerative disc disease), cervical Defect, retina, with detachment right DJD (degenerative joint disease), lumbar Emphysema lung ([facility]) Former smoker Hematuria SCHEDULED FOR THE PROCEDURE /SURGERY ON 02/11/2017 Hypokalemia Lung nodules Near syncope 09/19/2023 Osteoporosis Palpitations Pneumonia Recurrent major depression ([facility]) Sciatica Thoracic compression fracture ([facility]) Vitamin D deficiency Past Surgical History: [...] (99.4 F) (Temporal) Resp 20 Ht 5' 4 (1.626 m) Wt 89 lb (40.4 kg) [...] 07/30/2024 350 QTC Interval 07/30/2024 439 P Woodland 07/30/2024 53 QRS [place] 07/30/2024 -35 T Wave [place] 07/30/2024 43 LA Interval 07/30/2024 137 Auto WBC 07/30/2024 8.9 [...] QT Interval 350 QTC Interval 439 P [place] 53 QRS [place] -35 T Wave [place] 43 LA Interval 137 Impression Sinus rhythm Left axis [...] placed in a splint. She has seen [facility] orthopedics in the past they will be [...] Time spent on admission 07/30/2024 Gonzalo Deluca [id number] Any scheduled follow up appointments Future Appointments Date Time Provider Department Center 09/04/2024 2:30 PM [facility] 1 [facility] None Extended Emergency Contact Information Primary Emergency Contact: Karishma Deluca Address: [address] [place] [address] [place] [phone] [facility] Mobile Relation: Daughter Secondary Emergency Contact: Jace Deluca Mobile Relation: Son Portions of this note may be electronically transcribed. Please forward a copy of this H&P to the primary care physician. documented in this encounter [facility] 07-30-2024 Emergency department Note Associated Order(s): Splint [...] Chest pain COPD (chronic obstructive pulmonary disease) ([facility]) USE OXYGEN 3 L AT NIGHT DDD (degenerative disc disease), cervical Defect, retina, with detachment right DJD (degenerative joint disease), lumbar Emphysema lung (HCC) Former smoker Hematuria SCHEDULED FOR THE PROCEDURE /SURGERY ON 02/11/2017 Hypokalemia Lung nodules Near syncope 09/19/2023 Osteoporosis Palpitations Pneumonia Recurrent major depression ([facility]) Sciatica Thoracic compression fracture ([facility]) Vitamin D deficiency SURGICAL HISTORY Past Surgical History: Procedure Laterality Date CYSTOSCOPY 01/12/2017 OFFICE PROCEDURE CYSTOSCOPY 02/11/2017 C&P bladder biopsy EYE SURGERY detached retina 1994 HYSTERECTOMY 11/06/2019 ABDOMINAL RADICAL HYSTERECTOMY WITH BSO AND PELVIC LYMPH; DR. ZIYAD MARISCAL [facility] OTHER SURGICAL HISTORY Left 12/19/2019 Med Port [...] Resource Strain: Low Risk (06/06/2024) Received from [facility] Overall Financial Resource Strain (CARDIA) Difficulty of Paying Living Expenses: Not very hard Food Insecurity: No Food Insecurity (06/06/2024) Received from [facility] Hunger Vital Sign Worried About Running Out of Food in the Last Year: Never true Ran Out of Food in the Last Year: Never true Transportation Needs: Unmet Transportation Needs (06/06/2024) Received from [facility] PRAPARE - Transportation Lack of Transportation (Medical): Yes Lack of Transportation (Non-Medical): No Physical Activity: Inactive (06/06/2024) Received from [facility] Exercise Vital Sign Days of Exercise per Week: 0 days Minutes of Exercise per Session: 0 min Stress: Stress Concern Present (06/06/2024) Received from [facility] [place] [employer] - Occupational Stress Questionnaire Feeling of Stress : To some extent Social Connections: Unknown (06/06/2024) Received from [facility] Social Connection and Isolation Panel [NHANES] Frequency of Communication with Friends and Family: Twice a week Frequency of Social Gatherings with Friends and Family: Never Attends Anabaptism Services: Never Active Member of Clubs or [...] kg (89 lb) Height: 1.626 m (5' 4) Medications - No data to display The [...] swelling Alternatives discussed: Delayed treatment and referral [place] protocol: Patient identity confirmed: Verbally with patient [...] Medicine Provider Luis E Keating DO 07/30/24 [id number] documented in this encounter [facility] 07-30-2024 Physician Emergency department Note Associated Order(s): [...] Chest pain COPD (chronic obstructive pulmonary disease) ([facility]) USE OXYGEN 3 L AT NIGHT DDD (degenerative disc disease), cervical Defect, retina, with detachment right DJD (degenerative joint disease), lumbar Emphysema lung (HCC) Former smoker Hematuria SCHEDULED FOR THE PROCEDURE /SURGERY ON 02/11/2017 Hypokalemia Lung nodules Near syncope 09/19/2023 Osteoporosis Palpitations Pneumonia Recurrent major depression ([facility]) Sciatica Thoracic compression fracture ([facility]) Vitamin D deficiency SURGICAL HISTORY Past [...] 12 hours or as directed by . MAGNESIUM OXIDE (MAG-OX) 400 MG TABLET 400 [...] Resource Strain: Low Risk (06/06/2024) Received from [facility] Overall Financial Resource Strain (CARDIA) Difficulty of Paying Living Expenses: Not very hard Food Insecurity: No Food Insecurity (06/06/2024) Received from [facility] Hunger Vital Sign Worried About Running Out of Food in the Last Year: Never true Ran Out of Food in the Last Year: Never true Transportation Needs: Unmet Transportation Needs (06/06/2024) Received from [facility] PRAPARE - Transportation Lack of Transportation (Medical): Yes Lack of Transportation (Non-Medical): No Physical Activity: Inactive (06/06/2024) Received from [facility] Exercise Vital Sign Days of Exercise per Week: 0 days Minutes of Exercise per Session: 0 min Stress: Stress Concern Present (06/06/2024) Received from [facility] [place] [employer] - Occupational Stress Questionnaire Feeling of Stress : To some extent Social Connections: Unknown (06/06/2024) Received from [facility] Social Connection and Isolation Panel [NHANES] Frequency of Communication with Friends and Family: Twice a week Frequency of Social Gatherings with Friends and Family: Never Attends Anabaptism Services: Never Active Member of Clubs or [...] kg (89 lb) Height: 1.626 m (5' 4) Medications - No data to display The [...] swelling Alternatives discussed: Delayed treatment and referral Pic[place] protocol: Patient identity confirmed: Verbally with patient [...] Medicine Provider Luis E Keating DO [id number]/30/242152 [facility] 07-30-2024 Note HNO ID: [id number] Author: HERMINIA CASE MD Service: ? Author Type: Physician Type: Progress Notes Filed: 07/30/2024 16:33 Note Text: 07/30/2024 Recording using [employer] software for draft documentation of the visit was discussed with the patient/authorized instruments sales representative; all questions welcomed and answered. Patient/authorized instruments sales representative agreed to proceed HPI: Gonzalo [...] - Reports constant cough and production of nasty looking crap. - Denies fever. - History of vaping. [...] Diagnosis Date COPD (chronic obstructive pulmonary disease) ([facility]) DDD (degenerative disc disease), lumbar Encounter [...] (98.4 ?F) (Temporal) Ht 164.1 cm (5' 4.61) Wt 40.6 kg (89 lb 8.1 oz) SpO2 (!) 82% BMI 15.08 kg/m? GENERAL: NAD, alert and oriented, cachectic. SKIN: Unremarkable, no rash or skin lesions. HEAD (more content not included)... [facility] 07-30-2024 History of Presen t illness Narrative 07/30/2024 Recording using ambient [employer] software for draft documentation of the visit was discussed with the patient/authorized instruments sales representative; all questions welcomed and answered. Patient/authorized instruments sales representative agreed to proceed HPI: Gonzalo [...] - Reports constant cough and production of nasty looking crap. - Denies fever. - History of vaping. [...] (98.4 F) (Temporal) Ht 164.1 cm (5' 4.61) Wt 40.6 kg (89 lb 8.1 oz) [...] cardiac events. - Patient to go to [place] [facility] for stabilization of oxygen levels and [...] oxygenation. - Consideration for admission to a group home facility for nutritional support and rehabilitation. - Patient and family agree to ER visit for evaluation of failure to thrive and potential admission. Orders placed during this encounter: No orders found for this visit on 07/30/24. The patient indicates understanding of these issues and agrees with the plan of care. Red flag symptoms reviewed if needed. Herminia Case MD documented in this encounter [facility] 07-23-2024 Telephone encounter Note Prescription Refill [...] Shay LPN July 23, 2024 11:22 AM [facility] 07-23-2024 Miscellaneous Notes Prescription Refill Information [...] 2024 11:22 AM documented in this encounter [facility] 07-02-2024 Telephone encounter Note Request completed and faxed. [facility] 07-02-2024 Miscellaneous Notes Request completed and faxed. Orders signed and in outbox. Please fax. Thank you, Leona Castañeda APRN.SHOE TURNER Type of letter/form/fax request - Assisted living orders Form received from [facility] on 06/29/24 floor and placed on MD desk () for completion. Completed form needs to be faxed to [phone]. Route to [place] when form completed for processing documented in this encounter [facility] 07-02-2024 Telephone encounter Note Orders signed and in outbox. Please fax. Thank you, Leona Castañeda APRN.SHOE TURNER [facility] Work Phone: 06-30-2024 Telephone encounter Note Type of letter/form/fax request - Assisted living orders Form received from [facility] on 06/29/24 floor and placed on MD desk () for completion. Completed form needs to be faxed to [phone]. Route to [place] when form completed for processing [facility] 06-26-2024 Telephone encounter Note Prescription Refill [...] Shay LPN June 26, 2024 9:32 AM [facility] 06-26-2024 Miscellaneous Notes Prescription Refill Information [...] 2024 9:32 AM documented in this encounter [facility] 06-26-2024 Telephone encounter Note Prescription Refill [...] Patel MA June 26, 2024 8:38 AM [facility] 06-26-2024 Miscellaneous Notes Prescription Refill Information [...] 2024 8:38 AM documented in this encounter [facility] 06-07-2024 Telephone encounter Note Herminia Case MD Thank you for the referral. Our first available date for a therapy start of care is 06/11/24. Please let us know if this is acceptable for you and the patient. Thank you , Maddi Valero LPN June 07, 2024 5:05 PM [facility] Work Phone: 06-07-2024 Miscellaneous Notes Herminia Case MD Thank you for the referral. Our first available date for a therapy start of care is 06/11/24. Please let us know if this is acceptable for you and the patient. Thank you , Maddi Valero LPN June 07, 2024 5:05 PM documented in this encounter [facility] 06-06-2024 Telephone encounter Note Herminia Case MD Thank you for the referral for Gonzalo Deluca to receive home care services through [facility]. At this time, the office note [...] patient for. Thank you, Erna Diaz LPN [facility] Work Phone: 06-06-2024 Miscellaneous Notes Herminia Case MD Thank you for the referral for Gonzalo Deluca to receive home care services through [facility]. At this time, the office note is not yet completed for us to review for CMS guidelines. Please let us know once you have an opportunity to complete it so that we can review for CMS. Also, per CMS guidelines your office note needs to include a discussion of [facility] with the following: - why is C needed - why is the patient homebound - what is the diagnosis that [facility] is seeing the patient for. Thank you, Erna Diaz LPN documented in this encounter [facility] 06-06-2024 Note HNO ID: [id number] Author: HERMINIA CASE MD Service: ? Author Type: Physician Type: Progress Notes Filed: 06/07/2024 16:23 Note Text: VIRTUAL VISIT PROGRESS NOTE This is a virtual visit using Blow[employer]chom Video Visit. It required patient-provider interaction for the medical decision making as documented below. I have communicated my name and active licensure. The patient's identity and physical location were verified at the time of this visit. Either the patient or their legal instruments sales representative has been informed of the [...] major depressive di (more content not included)... [facility] 06-06-2024 History of Presen t illness Narrative VIRTUAL VISIT PROGRESS NOTE This is a virtual visit using B[employer] Video Visit. It required patient-provider interaction for the medical decision making as documented below. I have communicated my name and active licensure. The patient's identity and physical location were verified at the time of this visit. Either the patient or their legal instruments sales representative has been informed of the [...] visit: Panlobular emphysema (HCC) - CONSULT TO [facility] - pt cannot drive, has severe anxiety when leaving the house due to oxygen requirements, falls frequently, short of breath with exertion. Would benefit from home health for general strengthening to avoid falls, risk assessment of house, social work consultation for assistance in future terminal operations manager placement. Moderate episode of recurrent major depressive disorder (HCC) - increase to 30 mg, mirtazapine (REMERON) 15 mg tablet; Take 2 tablet by mouth daily at bedtime. Chronic respiratory failure with hypoxia (HCC) - CONSULT TO [facility] There are no Patient Instructions on file for this visit. Herminia Case MD documented in this encounter [facility] 05-26-2024 Telephone encounter Note Prescription Refill [...] Shay LPN May 26, 2024 12:10 PM [facility] 05-26-2024 Miscellaneous Notes Prescription Refill Information [...] 2024 12:10 PM documented in this encounter [facility] 05-22-2024 Note Patient Outreach (FA MDNA) GONZALO DELUCA ([id number]) 1955 F Date Time Provider Department 05/22/24 HERMINIA CASE During your visit today, we recorded the following information about you: Allergies As of Date: 05/22/2024 Noted Allergy Reaction SEASONAL ALLERGIES 08/16/2017 5 - Intolerance Date Reviewed: 12/30/2023 Reviewed by: Joaquina Martinez APRN.SHOE TURNER - Fully Assessed Visit Diagnosis:Encounter for screening mammogram for breast cancer [Z12.31] Order(s):PAOLO SCREENING W CARON [[id number]] Order #: [id number] FUTURE Prescriptions as of 06/22/2024 - mirtazapine [...] [Z99.81] 04/10/2017 Diagnosed: 03/11/2023 Encounter Status:Closed by HUNTER, PRODUSER on 06/22/24 [facility] 05-09-2024 Telephone encounter Note Pt has refills on current prescription that should be available until end may. Melva Powell PA-C [facility] 05-09-2024 Miscellaneous Notes Pt has refills [...] 2024 9:26 AM documented in this encounter [facility] 05-09-2024 Telephone encounter Note Prescription Refill [...] Weathers MA May 09, 2024 9:26 AM [facility] 05-02-2024 Note HNO ID: [id number] Author: ?, ?, ? Service: ? Author Type: ? Type: Progress Notes Filed: 05/02/2024 18:24 Note Text: Pt got scheduled [facility] 05-02-2024 Note HNO ID: [id number] Author: ?, ?, ? Service: ? Author Type: ? Type: Progress Notes Filed: 05/02/2024 12:10 Note Text: Mc sent [facility] 05-02-2024 History of Presen t illness Narrative Mc sent VIRTUAL VISIT PROGRESS NOTE This is a virtual visit using Blowtorchom Video Visit. It required patient-provider interaction for the medical decision making as documented below. I have communicated my name and active licensure. The patient's identity and physical location were verified at the time of this visit. Either the patient or their legal instruments sales representative has been informed of the [...] fall a few days ago, went [facility] Doesn't recall how it happened, fell [...] in the ER No results found for: HBA1C) Cholesterol, Total (mg/dL) Date Value 09/15/2022 169 [...] Herminia Case MD documented in this encounter [facility] 05-02-2024 Note HNO ID: [id number] Author: HERMINIA CASE MD Service: ? Author Type: Physician Type: Progress Notes Filed: 05/02/2024 11:35 Note Text: VIRTUAL VISIT PROGRESS NOTE This is a virtual visit using [employer] Zoom Video Visit. It required patient-provider interaction for the medical decision making as documented below. I have communicated my name and active licensure. The patient's identity and physical location were verified at the time of this visit. Either the patient or their legal instruments sales representative has been informed of the [...] fall a few days ago, went to [facility] Doesn't recall how it happened, fell [...] in the ER No results found for: HBA1C) Cholesterol, Total (mg/dL) Date Value 09/15/2022 169 [...] OF SYSTEMS: GENERAL: (more content not included)... [facility] 05-01-2024 Telephone encounter Note Mc sent [facility] 05-01-2024 Miscellaneous Notes Mc sent Needs [...] 2024 6:08 PM documented in this encounter [facility] 05-01-2024 Telephone encounter Note Needs appointment. [facility] 04-30-2024 Telephone encounter Note Prescription Refill [...] Shay LPN April 30, 2024 6:08 PM [facility] 04-27-2024 Emergency department Note Patient: Gonzalo [...] for clarification.) Flako Altamirano MD Acute Care [facility] CHIEF COMPLAINT Chief Complaint Patient presents with [...] Acute exacerbation of chronic obstructive pulmonary disease ([facility]) 04/12/2018 Allergic rhinitis Arthritis Asthma Bronchitis Cancer ([facility]/HCC) ([facility]) skin Cervical cancer ([facility]) Chest pain COPD (chronic obstructive pulmonary disease) ([facility]) USE OXYGEN 3 L AT NIGHT DDD (degenerative disc disease), cervical Defect, retina, with detachment right DJD (degenerative joint disease), lumbar Emphysema lung ([facility]) Former smoker Hematuria SCHEDULED FOR THE PROCEDURE /SURGERY ON 02/11/2017 Hypokalemia Lung nodules Near syncope 09/19/2023 Osteoporosis Palpitations Pneumonia Recurrent major depression ([facility]) Sciatica Thoracic compression fracture ([facility]) Vitamin D deficiency SURGICAL HISTORY Past [...] min Stress: No Stress Concern Present (09/19/2023) [employer] [place] [employer] - Occupational Stress Questionnaire Feeling of Stress : Only a little Social Connections: Socially Isolated (09/19/2023) Social Connection and Isolation Panel [NHANES] Frequency of Communication with Friends and Family: Three times a week Frequency of Social Gatherings with Friends and Family: Three times a week Attends Anabaptism Services: Never Active Member of Clubs or [...] Homeless in the Last Year: No SCREENINGS [place] Coma Scale Best Eye Response: Spontaneous Best [...] kg (108 lb) Height: 1.6 m (5' 3) Diagnoses as of 04/28/24 011 Contusion of face, initial encounter Medications ketorolac (Toradol) injection 15 mg (has no administration in time range) sodium chloride 0.9 % bolus 1,000 mL (1,000 mL IntraVENous New Bag 04/27/24 3410) REVAL: MDM On reassessment I talked to [...] sepsis, or septic shock (If yes use .sepsiscoremeasure): No FINAL IMPRESSION 1. Contusion of face, initial encounter DISPOSITION Discharge 04/28/2024 01:11:17 AM PATIENT REFERRED TO: Herminia Case MD [address] [place] [address] DISCHARGE MEDICATIONS: New Prescriptions No medications on [...] pain 2ndary fall documented in this encounter [facility] 04-27-2024 Emergency department Triage note Per ems, fall on carpeted floor. _ LOC but pt states she was dizzy and weak prior to fall. C/o L elbow and nose pain 2ndary fall [facility] 04-27-2024 Physician Emergency department Note Patient: [...] Bronchitis Cancer (CMS/HCC) (HCC) skin Cervical cancer ([facility]) Chest pain COPD (chronic obstructive pulmonary disease) ([facility]) USE OXYGEN 3 L AT NIGHT DDD (degenerative disc disease), cervical Defect, retina, with detachment right DJD (degenerative joint disease), lumbar Emphysema lung ([facility]) Former smoker Hematuria SCHEDULED FOR THE PROCEDURE /SURGERY ON 02/11/2017 Hypokalemia Lung nodules Near syncope 09/19/2023 Osteoporosis Palpitations Pneumonia Recurrent major depression ([facility]) Sciatica Thoracic compression fracture ([facility]) Vitamin D deficiency SURGICAL HISTORY Past Surgical History: Procedure Laterality Date CYSTOSCOPY 01/12/2017 OFFICE PROCEDURE CYSTOSCOPY 02/11/2017 C&P bladder biopsy EYE SURGERY detached retina 1994 HYSTERECTOMY 11/06/2019 ABDOMINAL RADICAL HYSTERECTOMY WITH BSO AND PELVIC LYMPH; DR. ZIYAD MENENDEZ [facility] OTHER SURGICAL HISTORY Left 12/19/2019 Med Port [...] min Stress: No Stress Concern Present (09/19/2023) [employer] [place] [employer] - Occupational Stress Questionnaire Feeling of Stress : Only a little Social Connections: Socially Isolated (09/19/2023) Social Connection and Isolation Panel [NHANES] Frequency of Communication with Friends and Family: Three times a week Frequency of Social Gatherings with Friends and Family: Three times a week Attends Anabaptism Services: Never Active Member of Clubs or [...] kg (108 lb) Height: 1.6 m (5' 3) Diagnoses as of 04/28/24 0112 Contusion of face, initial encounter Medications ketorolac (Toradol) injection 15 mg (has no administration in time range) sodium chloride 0.9 % bolus 1,000 mL (1,000 mL IntraVENous New Bag 04/27/24 0358) REVAL: MDM On reassessment I talked to [...] sepsis, or septic shock (If yes use .sepsiscoremeasure): No FINAL IMPRESSION 1. Contusion of face, initial encounter DISPOSITION Discharge 04/28/2024 01:11:17 AM PATIENT REFERRED TO: Herminia Case MD [address] [place] [id number] DISCHARGE MEDICATIONS: New Prescriptions No medications on [...] Medicine Provider Flako Altamirano MD 04/28/24 0112 [facility] 04-06-2024 Telephone encounter Note Prescription Refill [...] Weathers MA April 06, 2024 9:03 AM [facility] 04-06-2024 Miscellaneous Notes Prescription Refill Information [...] 2024 9:03 AM documented in this encounter [facility] 04-02-2024 Telephone encounter Note Pt has three refills available at the pharmacy. Melva Juárez PA-C [facility] 04-02-2024 Miscellaneous Notes Pt has three [...] Alejandra Reno MA documented in this encounter [facility] 04-02-2024 Telephone encounter Note Pharmacy verified in [facility] Patient has been identified by name and [...] applicable Please advise. Maria Alejandra Reno MA [facility] 04-02-2024 Miscellaneous Notes Pharmacy verified in [facility] Patient has been identified by name and [...] Alejandra Reno MA documented in this encounter [facility] 04-02-2024 Telephone encounter Note Pharmacy verified in [facility] Patient has been identified by name and [...] applicable Please advise. Maria Alejandra Reno MA [facility] 03-20-2024 Telephone encounter Note Prescription Refill Information [...] Baltazar MA March 20, 2024 12:08 PM [facility] 03-20-2024 Miscellaneous Notes Prescription Refill Information The [...] 2024 12:08 PM documented in this encounter [facility] 03-12-2024 Telephone encounter Note Pharmacy verified in [facility]. Patient has been identified by name and [...] Not applicable Please advise. Rocio Westfall MA [facility] 03-12-2024 Miscellaneous Notes Pharmacy verified in [place]. Patient has been identified by name and [...] Rocio Westfall MA documented in this encounter [facility] 03-09-2024 Telephone encounter Note Prescription Refill [...] Patel MA March 09, 2024 4:57 PM [facility] 03-09-2024 Miscellaneous Notes Prescription Refill Information [...] 2024 4:57 PM documented in this encounter [facility] 03-05-2024 Telephone encounter Note Patient aware, will buy over the counter. Whit Shay LPN [facility] 03-05-2024 Miscellaneous Notes Patient aware, will buy over the counter. Whit Shay LPN LM for patient to call the office. Whit Shay LPN Let patient know she can try looking for this available over the counter. Looks like she uses the diclofenac gel. Per [facility], Diclofenac Sodium is on backorder unavailable. Please advise. Whit Shay LPN documented in this encounter [facility] 03-05-2024 Telephone encounter Note Pharmacy verified in [facility] Patient has been identified by name and [...] 7.9 oz) Please advise. Silvia Trejo MA [facility] 03-05-2024 Miscellaneous Notes Pharmacy verified in [facility] Patient has been identified by name and [...] Silvia Trejo MA documented in this encounter [facility] 03-02-2024 Telephone encounter Note LM for patient to call the office. Whit Shay LPN [facility] 03-01-2024 Telephone encounter Note Let patient know she can try looking for this available over the counter. Looks like she uses the diclofenac gel. [facility] 03-01-2024 Telephone encounter Note Per [facility], Diclofenac Sodium is on backorder unavailable. Please advise. Whit Shay LPN [facility] 02-07-2024 Telephone encounter Note Pharmacy verified in [facility] Patient has been identified by name and [...] kg (132 lb 7.9 oz) Please advise. Silvai Trejo MA [facility] 02-07-2024 Miscellaneous Notes Pharmacy verified in [...] Silvia Trejo MA documented in this encounter [facility] 02-07-2024 Telephone encounter Note Prescription Refill [...] Prasad MA February 07, 2024 11:36 AM [facility] 02-07-2024 Miscellaneous Notes Prescription Refill Information [...] 2024 11:36 AM documented in this encounter [facility] 01-11-2024 Telephone encounter Note This was refilled earlier today. Melva Juárez PA-C [facility] 01-11-2024 Miscellaneous Notes This was refilled [...] 2024 2:10 PM documented in this encounter [facility] 01-11-2024 Telephone encounter Note Prescription Refill [...] Baltazar MA January 11, 2024 2:10 PM [facility] 01-10-2024 Telephone encounter Note Pharmacy verified in [place]. Patient has been identified by name and [...] Not applicable Please advise. Rocio Westfall MA [facility] 01-10-2024 Miscellaneous Notes Pharmacy verified in [place]. Patient has been identified by name and [...] Rocio Westfall MA documented in this encounter [facility] 01-09-2024 Telephone encounter Note Pharmacy verified in [place]. Patient has been identified by name and [...] Not applicable Please advise. Rocio Westfall MA [facility] 01-09-2024 Miscellaneous Notes Pharmacy verified in [place]. Patient has been identified by name and [...] Rocio Westfall MA documented in this encounter [facility] 01-09-2024 Telephone encounter Note Prescription Refill [...] Shay LPN January 09, 2024 2:38 PM [facility] 01-09-2024 Miscellaneous Notes Prescription Refill Information [...] 2024 2:38 PM documented in this encounter [facility] 01-09-2024 Telephone encounter Note Please review and advise. [facility] 01-09-2024 Miscellaneous Notes Please review and advise. documented in this encounter [facility] 01-09-2024 Telephone encounter Note Prescription Refill [...] Shay LPN January 09, 2024 10:42 AM [facility] 01-09-2024 Miscellaneous Notes Prescription Refill Information [...] 2024 10:42 AM documented in this encounter [facility] 12-30-2023 Note HNO ID: [id number] Author: JOAQUINA MARTINEZ APRN.SHOE TURNER Service: ? Author Type: Nurse Practitioner Type: Progress Notes Filed: 12/30/2023 13:47 Note Text: VIRTUAL VISIT PROGRESS NOTE This is a virtual visit using [employer] Video Visit. It required patient-provider interaction for the medical decision making as documented below. I have communicated my name and active licensure. The patient's identity and physical location were verified at the time of this visit. Either the patient or their legal instruments sales representative has been informed of the [...] on file for this visit. Joaquina Rao APRN.[facility] 12-30-2023 History of Presen t illness Narrative VIRTUAL VISIT PROGRESS NOTE This is a virtual visit using [employer] Video Visit. It required patient-provider interaction for the medical decision making as documented below. I have communicated my name and active licensure. The patient's identity and physical location were verified at the time of this visit. Either the patient or their legal instruments sales representative has been informed of the [...] on file for this visit. Joaquina Rao APRN.SHOE TURNER documented in this encounter [facility] 12-27-2023 Telephone encounter Note Request completed and faxed. [facility] 12-27-2023 Miscellaneous Notes Request completed and faxed. Type of letter/form/fax request - Home Health Care Orders Form received from [facility] on 12/26/23 floor and placed on MD desk () for completion. Completed form needs to be faxed to [phone]. Route to [place] when form completed for processing [facility] [facility] 12-27-2023 Telephone encounter Note Type of letter/form/fax request - Home Health Care Orders Form received from [facility] on 12/26/23 floor and placed on MD desk () for completion. Completed form needs to be faxed to [phone]. Route to PA when form completed for processing [facility] 12-27-2023 Telephone encounter Note Prescription Refill [...] Contreras LPN December 27, 2023 10:41 AM [facility] 12-27-2023 Miscellaneous Notes Prescription Refill Information [...] 2023 10:41 AM documented in this encounter [facility] 12-14-2023 Telephone encounter Note Prescription Refill [...] Shay LPN December 14, 2023 9:21 AM [facility] 12-14-2023 Miscellaneous Notes Prescription Refill Information [...] 2023 9:21 AM documented in this encounter [facility] 12-14-2023 Telephone encounter Note Request completed and faxed. [facility] 12-14-2023 Miscellaneous Notes Request completed and faxed. Done. Type of letter/form/fax request - Home Health Care Orders Form received from [facility] on 12/12/23 floor and placed on MD desk () for completion. Completed form needs to be faxed to [phone]. Route to MA when form completed for processing documented in this encounter [facility] 12-13-2023 Telephone encounter Note Done. [facility] 12-13-2023 Telephone encounter Note Type of letter/form/fax request - Home Health Care Orders Form received from [facility] on 12/12/23 floor and placed on desk () for completion. Completed form needs to be faxed to [phone]. Route to MA when form completed for processing [facility] 12-08-2023 Telephone encounter Note Home care Certification Form 485 received from [facility]. For cert dates 11/25/23 to 01/23/24 that were signed on 12/06/23. Recertification Patient's home health 485 form / care plan for stated certification period reviewed and signed. Relevant medical records were reviewed. No changes were indicated [facility] 12-08-2023 Miscellaneous Notes Home care Certification Form 485 received from [facility]. For cert dates 11/25/23 to 01/23/24 that were signed on 12/06/23. Recertification Patient's home health 485 form / care plan for stated certification period reviewed and signed. Relevant medical records were reviewed. No changes were indicated documented in this encounter [facility] 12-06-2023 Telephone encounter Note Request completed and faxed. [facility] 12-06-2023 Miscellaneous Notes Request completed and faxed. Done. Type of letter/form/fax request - Home Health Care Orders Plan of Care Certification Period-11/25/23 to 01/23/24 Form received from [facility] on 12/01/23 floor and placed on desk () for completion. Completed form needs to be faxed to [phone]. Route to PA when form completed for processing documented in this encounter [facility] 12-06-2023 Telephone encounter Note Done. T [facility] 12-06-2023 Telephone encounter Note Type of letter/form/fax request - Home Health Care Orders Plan of Care Certification Period-11/25/23 to 01/23/24 Form received from [facility] on 12/01/23 floor and placed on MD desk () for completion. Completed form needs to be faxed to [phone]. Route to PA when form completed for processing [facility] 11-28-2023 Telephone encounter Note Pharmacy verified in [facility] Patient has been identified by name and [...] oz) Please advise. Silvia Trejo MA T [facility] 11-28-2023 Miscellaneous Notes Pharmacy verified in [facility] Patient has been identified by name and [...] Silvia Trejo MA documented in this encounter [facility] 11-14-2023 Telephone encounter Note Pharmacy verified in [facility]. Patient has been identified by name and [...] Not applicable Please advise. Rocio Westfall MA [facility] 11-14-2023 Miscellaneous Notes Pharmacy verified in [facility]. Patient has been identified by name and [...] Rocio Westfall MA documented in this encounter [facility] 11-14-2023 Telephone encounter Note Request completed and faxed. [facility] 11-14-2023 Miscellaneous Notes Request completed and faxed. Done. Type of letter/form/fax request - Home Health Care Orders Form received from [facility] on 11/13/23 floor and placed on MD desk () for completion. Completed form needs to be faxed to . Route to MA when form completed for processing documented in this encounter [facility] 11-14-2023 Telephone encounter Note Done. [facility] 11-14-2023 Telephone encounter Note Type of letter/form/fax request - Home Health Care Orders Form received from [facility] on 11/13/23 floor and placed on MD desk () for completion. Completed form needs to be faxed to . Route to MA when form completed for processing [facility] 11-12-2023 Telephone encounter Note Prescription Refill [...] Shay LPN November 12, 2023 10:33 AM [facility] 11-12-2023 Miscellaneous Notes Prescription Refill Information [...] 2023 10:33 AM documented in this encounter [facility] 11-02-2023 Telephone encounter Note Prescription Refill [...] Prasad MA November 02, 2023 8:23 AM [facility] 11-02-2023 Miscellaneous Notes Prescription Refill Information [...] 2023 8:23 AM documented in this encounter [facility] 10-28-2023 Telephone encounter Note Request completed and faxed. [facility] 10-28-2023 Miscellaneous Notes Request completed and faxed. Done. Type of letter/form/fax request - Home Health Care Orders Form received from [facility] on 10/27/23 floor and placed on MD desk () for completion. Completed form needs to be faxed to [phone]. Route to MA when form completed for processing documented in this encounter [facility] 10-28-2023 Telephone encounter Note Done. [facility] 10-28-2023 Telephone encounter Note Type of letter/form/fax request - Home Health Care Orders Form received from [facility] on 10/27/23 floor and placed on MD desk () for completion. Completed form needs to be faxed to [phone]. Route to MA when form completed for processing [facility] 10-24-2023 Telephone encounter Note Noted. Melva Juárez PA-C [facility] 10-24-2023 Miscellaneous Notes Noted. Melva Juárez PA-C Summary: Patient Update [facility] PT called to report that patient cancelled her PT appointment today. documented in this encounter [facility] 10-22-2023 Telephone encounter Note Summary: Patient Update [facility] PT called to report that patient cancelled her PT appointment today. [facility] 10-18-2023 Telephone encounter Note Request completed and faxed. [facility] 10-18-2023 Miscellaneous Notes Request completed and faxed. Type of letter/form/fax request - Home Health Care Orders Form received from [facility] on 10/18/23 floor and placed on MD desk () for completion. Completed form needs to be faxed to [phone]. Route to PA when form completed for processing documented in this encounter [facility] 10-18-2023 Telephone encounter Note Type of letter/form/fax request - Home Health Care Orders Form received from [facility] on 10/18/23 floor and placed on MD desk () for completion. Completed form needs to be faxed to [phone]. Route to PA when form completed for processing [facility] 10-16-2023 Hospital Discharg e instructions Janneth Hartley PA-C - 10/16/2023 9:52 PM EDT Continue take your home medications as prescribed, and use lidocaine patches. Do the incentive spirometer for 10 breaths every 2 hours while awake. Return to ER if experiencing any worsening symptoms The following attachments cannot be sent through Care Everywhere.Preventing Falls ED (Peruvian)Acute Pain, Adult (Peruvian)documented in this encounter [facility] 10-16-2023 Emergency department Note Emergency Department Encounter [facility] ED Patient: Gonzalo Deluca : 1955 Date [...] major depression (HCC) Sciatica Thoracic compression fracture ([facility]) Vitamin D deficiency Past Surgical History: [...] min Stress: No Stress Concern Present (09/19/2023) [employer] [place] [employer] - Occupational Stress Questionnaire Feeling of Stress : Only a little Social Connections: Socially Isolated (09/19/2023) Social Connection and Isolation Panel [NHANES] Frequency of Communication with Friends and Family: Three times a week Frequency of Social Gatherings with Friends and Family: Three times a week Attends Anabaptism Services: Never Active Member of Clubs or [...] sepsis, or septic shock (If yes use .sepsiscoremeasure): Diagnostics: Labs: Labs Reviewed - No data [...] Department Physician in the absence of a executive steward. Please see Epiphany for interpretation of EKG. [...] PATIENT REFERRED TO: Herminia Case MD [address] [facility] [address] Call [facility] ED [address] [address] Go to If symptoms worsen DISCHARGE MEDICATIONS: New Prescriptions LIDOCAINE (LIDODERM) 5 % PATCH Apply 1 patch topically daily. Remove & discard patch within 12 hours or as directed by . METHOCARBAMOL (ROBAXIN) 500 MG TABLET Take 2 tablets (1,000 mg) by mouth every 8 hours as needed for muscle spasms for up to 10 days. Janneth Hartley PA-C [facility] Janneth Hartley PA-C 10/16/232151 documented in this encounter [facility] 10-16-2023 Physician Emergency department Note Emergency Department Encounter [facility] ED Patient: Gonzalo Deluca : 1955 Date [...] is an 8/10. History of Present Illness: Goznalo Deluca is a 67 y.o. female who [...] major depression (HCC) Sciatica Thoracic compression fracture ([facility]) Vitamin D deficiency Past Surgical History: Procedure Laterality Date CYSTOSCOPY 01/12/2017 OFFICE PROCEDURE CYSTOSCOPY 02/11/2017 C&P bladder biopsy EYE SURGERY detached retina 1994 HYSTERECTOMY 11/06/2019 ABDOMINAL RADICAL HYSTERECTOMY WITH BSO AND PELVIC LYMPH; DR. ZIYAD MENENDEZ [facility] OTHER SURGICAL HISTORY Left 12/19/2019 Med Port [...] min Stress: No Stress Concern Present (09/19/2023) [employer] [place] [employer] - Occupational Stress Questionnaire Feeling of Stress : Only a little Social Connections: Socially Isolated (09/19/2023) Social Connection and Isolation Panel [NHANES] Frequency of Communication with Friends and Family: Three times a week Frequency of Social Gatherings with Friends and Family: Three times a week Attends Anabaptism Services: Never Active Member of Clubs or [...] sepsis, or septic shock (If yes use .sepsiscoremeasure): Diagnostics: Labs: Labs Reviewed - No data [...] Department Physician in the absence of a executive steward. Please see Epiphany for interpretation of EKG. [...] PM PATIENT REFERRED TO: Herminia Case MD [address] [place] [address] Call [facility] ED [address] [place] [phone] Go to If symptoms worsen DISCHARGE MEDICATIONS: New Prescriptions LIDOCAINE (LIDODERM) 5 % PATCH Apply 1 patch topically daily. Remove & discard patch within 12 hours or as directed by . METHOCARBAMOL (ROBAXIN) 500 MG TABLET Take 2 tablets (1,000 mg) by mouth every 8 hours as needed for muscle spasms for up to 10 days. Janneth Hartley PA-C [facility] Janneth Hartley PA-C 10/16/232151 [facility] 10-11-2023 Telephone encounter Note Home care Certification Form 485 received from [facility]. For cert dates 09/26/23 to 11/24/23 that were signed on 10/11/23. New Certification Patient's home health 485 form / care plan for stated certification period reviewed and signed. Relevant medical records were reviewed. No changes were indicated [facility] 10-11-2023 Miscellaneous Notes Home care Certification Form 485 received from [facility]. For cert dates 09/26/23 to 11/24/23 that were signed on 10/11/23. New Certification Patient's home health 485 form / care plan for stated certification period reviewed and signed. Relevant medical records were reviewed. No changes were indicated documented in this encounter [facility] 10-11-2023 Telephone encounter Note Request completed and faxed. [facility] 10-11-2023 Miscellaneous Notes Request completed and faxed. Done. Type of letter/form/fax request - Home Health Care Orders Form received from [facility] on 10/06/23 floor and placed on MD desk () for completion. Completed form needs to be faxed to [phone]. Route to MA when form completed for processing documented in this encounter [facility] 10-11-2023 Telephone encounter Note Done. [facility] 10-10-2023 Telephone encounter Note Type of letter/form/fax request - Home Health Care Orders Form received from [facility] on 10/06/23 floor and placed on MD desk () for completion. Completed form needs to be faxed to [phone]. Route to MA when form completed for processing [facility] 10-06-2023 Note HNO ID: [id number] Author: LALA MOLINA LPN Service: ? Author Type: LICENSED NURSE Type: Progress Notes Filed: 10/06/2023 12:12 Note Text: This encounter was opened in error. [facility] 10-06-2023 History of Presen t illness Narrative This encounter was opened in error. documented in this encounter [facility] 10-06-2023 Telephone encounter Note [facility] is calling Herminia Case MD today to report patient's home health care physical therapy will be delayed a week as patient informed them that she is not feeling well.. Patient has been identified by name and birthdate. Duration of symptoms: N/A Person calling: caregiver: [facility] Call patient at: at home [phone] (home) [phone] (cell) Was an appointment scheduled: No Closing statement: Jessica Jay [facility] Work Phone: 10-06-2023 Miscellaneous Notes [facility] is calling Herminia Case MD today to report patient's home health care physical therapy will be delayed a week as patient informed them that she is not feeling well.. Patient has been identified by name and birthdate. Duration of symptoms: N/A Person calling: caregiver: [facility] Call patient at: at home [phone] (home) [phone] (cell) Was an appointment scheduled: No Closing statement: Jessica Jay documented in this encounter [facility] 09-22-2023 Miscellaneous Notes Patient Choice Patient Name: GONZALO DELUCA Date of : 1955 All Providers Sent Referral Name: [facility] Phone: [phone] Address: [address] [place] [address] The patient is Moderately Unstable - Medium risk of patient condition declining or worsening The patient's goals for the shift include rest The clinical goals for the shift include safety Received message from Reny Telles APRN. Daughter Karishma requesting information on resources available to receive additional help in the home. Placed call to [phone]. Left voice mail and return call back [...] PT recommends return home with home care. engagement liaison following. Currently on 3 liters oxygen; wears [...] a lot of pain still. Home with daughter, 09/23/2023 SATURNINO Diaz 09/21/2023 9:02 AM 09/19- Ortho following for fractured vertebrae. On 3 liters. Up independently. 703- Still on 3L. In a lot of pain still. Home with daughter,Added blood pressure meds. 09/23/2023 SATURNINO Diaz 09/20/2023 9:21 AM 09/19- Ortho following for fractured vertebrae. On 3 liters. Up independently. 09/23/2023 Carolina Alvarez RN 09/20/2023 8:29 AM 09/23/2023 Heydi Ceballos MD 09/19/2023 8:42 PM 09/23/2023 Heydi Ceballos MD 09/19/2023 6:48 PM Length of Stay (Days): 2 GMLOS: No GMLOS Documented Start PACC Note Home Health Referral Educated patient and daughter, Karishma, on Home Care and services available. Patient offered choice of available HHC and agreeable to SN, PT services with [facility]. Care Types: [...] is noted as yes - consider a SWEAT BAND SEWER evaluation once the patient returns home. START PATIENT REGISTRATION INFORMATION Order Information Order Signing Physician: Nickolas Marrero MD Service Ordered RN ?: Yes Service Ordered PT ?: Yes Service Ordered OT ?: No Service Ordered ST ?: No Service Ordered SWEAT BAND SEWER?:No Service Ordered SENIOR MECHANICAL DESIGN ENGINEER?: No Following Physician: HERMINIA CASE MD Following Physician Overseeing Physician: HERMINIA CASE MD (Required for Residents only) Agreeable to Follow? Yes Date/Time of Call 09/21/23 2:04 PM, Spoke with: yes per call back received from office . Care Coordination Same Day SOC?: No Primary Care Physician: HERMINIA CASE MD Primary Care Physician Primary Care Physician Address: [address] [place] [address] Visit Instructions: N/A Service Discharge Location Type: Home with Home Health Care Service Facility Name: N/A Service Floor Facility: N/A Service Room No: N/A Demographics Patient Last Name: Yosi Patient First Name: Gonzalo Language/Communication Barrier: DAUGHTER KARISHMA IS CONTACT Service Address: [facility] Ramesh Bañuelos [facility] ST: [place] Service ZIP: [address] Service Other phone numbers: Telephone Information: Emergency Contact: Extended Emergency Contact Information Primary Emergency Contact: Karishma Deluca Address: [facility] [place] [address] [facility] Mobile Relation: Daughter Secondary Emergency Contact: Jace Deluca Mobile Relation: Son Admission Information Admit Date: 09/19/2023 Patient status at discharge: Inpatient Admitting Diagnosis: Near syncope [R55] Closed head injury, initial encounter [S09.90XA] Fall, initial encounter [W19.XXXA] Compression fracture of T7 vertebra, initial encounter (HCC) [S22.060A] Compression fracture of T8 vertebra, initial encounter ([facility]) [S22.060A] Compression fracture of T5 vertebra, initial encounter ([facility]) [S22.050A] Compression fracture of L1 vertebra, initial encounter ([facility]) [S32.010A] Caregiver Information Caregiver First Name: NA Caregiver Last Name: NA Caregiver Relationship to Patient NA Caregiver Phone Number: NA Caregiver Notes: N/A Only [employer] No END PATIENT REGISTRATION INFORMATION Pt [...] diagnoses: Discharge Date: TBD Referral Source-PACC: (Hospital/Unit): [facility] / B2-261/B2-261 A End PACC Note [...] Limits Permission given to speak with patient instruments sales representative/caregiver as indicated: Yes Confirmation of Payer with patient/family: Yes Payer Name: [facility] Dual Complete [place]: No Confirmation of Primary Care Physician: Confirmed [...] Daily Living Prescription Coverage: Yes Pharmacy Used: [facility] in [place] Medication Management: Independent Transportation/Shopping: Transportation Mode: Car [...] to be discharged to: Home with possible [facility] Discharge Planning Actions: Continue to follow Patient's [...] home with possible HHC at this time. virtual classroom manager to follow and assist as needed. [...] barriers include . documented in this encounter [facility] 09-22-2023 Note Formatting of this n ote might be different from the original. Patient Choice Patient Name: GONZALO DELUCA Date of : 1955 All Providers Sent Referral Name: [facility] Phone: [phone] Address: [address] [place] [address] [facility] 09-22-2023 Note Formatting of this n ote might be different from the original. Patient Choice Patient Name: GONZALO DELUCA Date of : 1955 All Providers Sent Referral Name: [facility] Phone: [phone] Address: [address] [place] [address] [facility] 09-22-2023 History of Presen t illness Narrative [...] 339 [phone] BMP: Recent Labs 09/19/23170609/20/2362609/21/23 0427 NA 140 137 139 K 2.3* 3.1* 3.1* CL 93* 99 102 CO2 35* 33* 35* BUN 36* 28* 18* CREATININE 1.33* 0.73 0.49* GLUCOSE 99 94 97 CALCIUM 9.0 8.5 9.1 ANIONGAP 13 5 2* LIVER PROFILE: Recent Labs 09/19/231706 AST 35 ALT 38* BILITOT 0.5 ALKPHOS 115 PROT 7.1 PT/INR: No results for input(s): PROTIME, INR in the last 72 hours. CARDIAC ENZYMES: Recent Labs 09/19/23170609/19/23 2319 09/20/23 0627 TROPONINI 0.025 0.031 0.022 Procalcitonin: No results found for: PROCAL COVID-19 PCR: No results for input(s): COVID19 in the last 72 hours. Objective: Vitals: BP 124/84 Pulse 92 Temp 36.2 C (97.2 F) (Temporal) Resp 16 Ht 5' 5 (1.651 m) Wt 115 lb (52.2 kg) [...] Information Primary Emergency Contact: Karishma Deluca Address: [address] [place] [address] [place] [address] [facility] Mobile Relation: Daughter Secondary Emergency Contact: AmybenjiJace Mobile Relation: Son Nickolas Marrero MD Division of Hospitalist Medicine [facility] Images from the original note were not included. PHYSICAL THERAPY [facility] Initial Evaluation Name/MRN: Gonzalo Deluca ([id number]) Evaluation Date: 09/21/2023 Date of : 1955 [...] Acute exacerbation of chronic obstructive pulmonary disease ([facility]) 04/12/2018 Allergic rhinitis Arthritis Asthma Bronchitis Cancer ([facility]) ([facility]) skin Cervical cancer ([facility]) ([facility]) Chest pain COPD (chronic obstructive pulmonary disease) ([facility]) USE OXYGEN 3 L AT NIGHT DDD (degenerative disc disease), cervical Defect, retina, with detachment right DJD (degenerative joint disease), lumbar Emphysema lung ([facility]) Former smoker Hematuria SCHEDULED FOR THE PROCEDURE /SURGERY ON 02/11/2017 Hypokalemia Lung nodules Near syncope 09/19/2023 Osteoporosis Palpitations Pneumonia Recurrent major depression ([facility]) Sciatica Thoracic compression fracture ([facility]) Vitamin D deficiency Past Surgical History: Past Surgical History: Procedure Laterality Date CYSTOSCOPY 01/12/2017 OFFICE PROCEDURE CYSTOSCOPY 02/11/2017 C&P bladder biopsy EYE SURGERY detached retina 1994 HYSTERECTOMY 11/06/2019 ABDOMINAL RADICAL HYSTERECTOMY WITH BSO AND PELVIC LYMPH; DR. ZIYAD MENENDEZ [facility] OTHER SURGICAL HISTORY Left 12/19/2019 Med Port POWER Regular Size OTHER SURGICAL HISTORY Left 11/07/2022 Percutaneous skeltal fixation femoral fracture TUBAL LIGATION 1992 Admission Diagnosis: Patient Active Problem List Diagnosis Date Noted Severe malnutrition ([facility]) ([facility]) 09/20/2023 Falls frequently 09/20/2023 Unintentional weight loss 09/20/2023 Debility 09/20/2023 PFO (patent foramen ovale) 09/20/2023 Lumbar compression fracture, closed, initial encounter ([facility]) 02/13/2023 Nondisplaced fracture of neck of left femur ([facility]) 11/06/2022 Other specified complication of vascular prosthetic devices, implants and grafts, initial encounter ([facility]) 08/06/2021 Poor venous access 12/19/2019 H/O: CVA (cerebrovascular accident) 12/14/2019 Malignant neoplasm of exocervix ([facility]) 11/07/2019 S/P hysterectomy 11/07/2019 PNA (pneumonia) [...] Responsibilities: Independent Receives Help From: Family Active Content Assistant: N/A Prior Level of Function ADL Assistance: [...] Mobility Raw Score (No Stairs) : 14 [facility] Plan Pt would benefit from skilled acute [...] 09/28/23 Therapy Time Individual Co-treatment Time In 09 (co eval with OT) Time Out 0927 Minutes 20 Timed Code Treatment Minutes: 8 Minutes (x1 ther act) JEFFERSON Galdamez Patient's Physical Therapy Plan of Care supervision is transferred to a [facility] Physical Therapist. Goals and/or treatment plan was established in collaboration with patient/family/other representatives. Images from the original note were not included. OCCUPATIONAL THERAPY [facility] Initial Evaluation Name/MRN: Gonzalo Deluca ([id number]) Evaluation Date: 09/21/2023 Date of : 1955 [...] Acute exacerbation of chronic obstructive pulmonary disease ([facility]) 04/12/2018 Allergic rhinitis Arthritis Asthma Bronchitis Cancer ([facility]) ([facility]) skin Cervical cancer ([facility]) ([facility]) Chest pain COPD (chronic obstructive pulmonary disease) ([facility]) USE OXYGEN 3 L AT NIGHT DDD (degenerative disc disease), cervical Defect, retina, with detachment right DJD (degenerative joint disease), lumbar Emphysema lung ([facility]) Former smoker Hematuria SCHEDULED FOR THE PROCEDURE /SURGERY ON 02/11/2017 Hypokalemia Lung nodules Near syncope 09/19/2023 Osteoporosis Palpitations Pneumonia Recurrent major depression ([facility]) Sciatica Thoracic compression fracture ([facility]) Vitamin D deficiency Past Surgical History: [...] Problem List Diagnosis Date Noted Severe malnutrition ([facility]) ([facility]) 09/20/2023 Falls frequently 09/20/2023 Unintentional weight loss 09/20/2023 Debility 09/20/2023 PFO (patent foramen ovale) 09/20/2023 Lumbar compression fracture, closed, initial encounter ([facility]) 02/13/2023 Nondisplaced fracture of neck of left femur ([facility]) 11/06/2022 Other specified complication of vascular prosthetic devices, implants and grafts, initial encounter ([facility]) 08/06/2021 Poor venous access 12/19/2019 H/O: CVA (cerebrovascular accident) 12/14/2019 Malignant neoplasm of exocervix ([facility]) 11/07/2019 S/P hysterectomy 11/07/2019 PNA (pneumonia) 08/02/2019 Leukocytosis 04/13/2018 Shortness of breath 04/13/2018 DDD (degenerative disc disease), cervical 04/12/2018 Recurrent major depression ([facility]) 04/12/2018 Chronic back pain 04/10/2017 COPD (chronic obstructive pulmonary disease) ([facility]) 04/10/2017 Pulmonary nodule 04/10/2017 Sciatica 04/10/2017 [...] Responsibilities: Independent Receives Help From: Family Active Content Assistant: N/A Prior Level of Function ADL Assistance: [...] 09/26/23 Therapy Time Individual Co-treatment Time In 09 Time Out 09 co-eval Minutes 20 Roopa More OT Patient's Occupational Therapy Plan of Care supervision is transferred to a [facility] Occupational Therapist. Goals and/or treatment plan was established in collaboration with patient/family/other representatives. [facility] Geriatric Medicine Inpatient Consult Service Admission Date: 09/19/2023 Assessment Principal Problem: Falls frequently Active Problems: Severe malnutrition (CMS/HCC) (HCC) Unintentional weight loss Debility Chronic back pain COPD (chronic obstructive pulmonary disease) ([facility]) Supplemental oxygen dependent Plan Polypharmacy (History [...] impairment --Recommend outpatient follow up at [facility] for more in depth [...] depression, Vit D deficiency, Osteoporosis presented to [facility] on 09/19/23 for fall. Found to [...] (97.2 F) (Temporal) Resp 16 Ht 5' 5 (1.651 m) Wt 115 lb (52.2 kg) SpO2 91% BMI 19.14 kg/m Intake/Output Summary (Last 24 hours) at 09/21/2023 0938 Last data filed at 09/21/2023 0218 Gross [...] mg, Oral, TID, Saad Telles APRN - SHOE TURNER, 650 mg at 09/21/23821 buPROPion XL (Wellbutrin XL) 24 hr tablet 150 mg, 150 mg, Oral, Daily, Lauren Serna MD, 150 mg at 09/21/23821 busPIRone (Buspar) tablet 15 mg, 15 mg, Oral, TID, Saad Telles APRN - SHOE TURNER, 15 mg at 09/21/23821 calcitonin (Miacalcin) injection 50 Units, 50 Units, IntraMUSCular, Daily, Lauren Serna MD enoxaparin (Lovenox) syringe 40 mg, 40 mg, SubCUTAneous, Daily, Lauren Serna MD, 40 mg at 09/21/23821 lidocaine (LMX) 4 % cream, , Topical, PRN, Lauren Serna MD melatonin tablet 3 mg, 3 mg, Oral, Nightly PRN, DB Merrill CNP, 3 mg at 09/20/232121 mirtazapine (Remeron) tablet 15 mg, 15 mg, Oral, Nightly, DB Merrill CNP, 15 mg at 09/20/232122 mometasone-formoterol (Dulera 200) [...] 30 mg, 30 mg, Oral, Daily, Saad Telles APRN - SHOE TURNER, 30 mg at 09/21/23 0822 perflutren protein [...] 1.017 09/21/2023 Lab Results Component Value Date [id number] 735 09/21/2023 Lab Results Component Value Date VITD25 30 09/21/2023 Reviewed: allergies, previous encounters, imaging, active problem lists, medications, and labs H: Recent Labs 09/21/23 0427 HGB 10.6* WBC 9.4 VS: Blood pressure 124/84, pulse 92, temperature 36.2 C (97.2 F), temperature source Temporal, resp. rate 16, height 1.651 m (5' 5), weight 52.2 kg (115 lb), SpO2 91%. 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 [...] (kg): 52 kg Total Energy Requirements (kcals/day): 8424-9500 (28-35) Weight Used for Protein Requirements: Current [...] Ordered Anthropometric Measures: Height: 165.1 cm (5' 5) Current Body Weight: 52.2 kg (115 lb) (stated) Weight Source: Stated Admission Body Weight: 52.2 kg (115 lb) Usual Body Weight: 56.7 kg (125 lb) (08/07/23 per records; 156# 11/22/[address]) % Weight Change (Calculated): -8 [place] Body Weight (lbs) (Calculated): 125 lbs [place] Body Weight (Kg) (Calculated): 57 kg % [place] Body Weight (Calculated): 92 % BMI (kg/m2) [...] Oral Nutrition Supplement Mara Corona RD Contact: *[phone] or via Secure Chat Hospitalist Progress Note [...] Chest pain COPD (chronic obstructive pulmonary disease) ([facility]) USE OXYGEN 3 L AT NIGHT DDD (degenerative disc disease), cervical Defect, retina, with detachment right DJD (degenerative joint disease), lumbar Emphysema lung ([facility]) Former smoker Hematuria SCHEDULED FOR THE PROCEDURE /SURGERY ON 02/11/2017 Hypokalemia Lung nodules Near syncope 09/19/2023 Osteoporosis Palpitations Pneumonia Recurrent major depression ([facility]) Sciatica Thoracic compression fracture ([facility]) Vitamin D deficiency LABS: CBC: Recent Labs 09/19/23170609/19/23175309/20/23 06 WBC 19.5* -- 10.9* RBC 4.18 -- [...] PROT 7.1 PT/INR: No results for input(s): PROTIME, INR in the last 72 hours. CARDIAC ENZYMES: Recent Labs 09/19/23170609/19/23 2319 09/20/23 06 TROPONINI 0.025 0.031 0.022 Procalcitonin: No results found for: PROCAL COVID-19 PCR: No results for input(s): COVID19 in the last 72 hours. Objective: Vitals: BP 110/72 (BP Location: Left arm, Patient Position: Lying) Pulse 85 Temp (!) 35.8 C (96.4 F) (Temporal) Resp 18 Ht 5' 5 (1.651 m) Wt 115 lb (52.2 kg) [...] Information Primary Emergency Contact: Karishma Deluca Address: [address] [place] [address] [place] [address] [facility] Mobile Relation: Daughter Secondary Emergency Contact: Jace Deluca Mobile Relation: Son Nickolas Marrero MD Division of Hospitalist Medicine [facility] Images from the original note were not included. PHYSICAL THERAPY [facility] Name/MRN: Gonzalo Ferris Yosi ([id number]) Date: 09/20/2023 PT orders received and chart reviewed. Pt with multiple, severe compresssion fractures of the T and L spine. Ortho consulted. Will await Ortho POC prior to initiating therapy Oseas L[facility] PT Images from the original note were not included. OCCUPATIONAL THERAPY [facility] Name/MRN: Gonzalo Starkssumeetbenji ([id number]) Date: 09/20/2023 OT orders received and chart reviewed. Pt with multiple, severe compresssion fractures of the T and L spine. Ortho consulted. Will await Ortho POC prior to initiating therapy. Roopa More OT documented in this encounter [facility] 09-22-2023 Plan of care note The patient is Moderately Unstable - Medium risk of patient condition declining or worsening The patient's goals for the shift include rest The clinical goals for the shift include safety [facility] 09-21-2023 Telephone encounter Note Called and spoke with Vivian from [place] They just need to confirm Dr. Case will follow for For homecare They Don't need orders. Verbal given now. [facility] Work Phone: 09-21-2023 Miscellaneous Notes Called and spoke with Vivian from [place] They just need to confirm Dr. Case will follow for For homecare They Don't need orders. Verbal given now. Orders or will Dr. Case follow? She will follow. We don't typically give home care orders. Melva Juárez PA-C Ashley from [facility] Patient currently admitted for falls Need orders to follow for Home Care Call back number: [phone] documented in this encounter [facility] 09-21-2023 Hospital Discharg e instructions Freddy Black MD - 09/21/2023 4:28 PM EDT Images from the original note were not included. You have been evaluated in the hospital for a behavioral health problem. I recommend you contact the following mental health provider(s) to schedule an appointment as soon as possible: [x] [facility]; [facility] (Psychiatry, Counseling,Addiction Services); [address], [place] [address]; [x] [facility]; (Psychiatry, Counseling, Addiction Services); [address], [facility] [address]; [x] [facility]; (Psychiatry, Counseling); [address] [place] [address]; [] [facility]; (Psychiatry, Counseling); [address], [address], [place] [address]; [] [facility]; (Psychiatry, Counseling); [address], [place] [address]; [] [facility]; (Psychiatry, Counseling); [address], [place] [address]; [] [facility]; (Psychiatry, Counseling); [address], [address], [place] [address]; [x] [facility] (Psychiatry, Counseling, Case Management); [address], [place] [address]; ; for initial assessments you may call or walk-in on Mondays and Tuesdays at 8:00 AM [] [facility] (Psychiatry, Counseling, Case Management); [address] [place] [address]; ; for initial assessments you may call or walk-in on at noon [] [facility] (Psychiatry, Counseling, Case Management); [address] [place] [address]; [x] [facility] (Psychiatry, Counseling, Case Management, Addiction Services); [address] [place] [address]; [x] [facility] (Psychiatry, Counseling, Case Management, Addiction Services); [address], [place] [address]; [x] [facility] (Psychiatry, Counseling, Case Management, Addiction Services); [address], [place] [address]; [] [facility] (Psychiatry, Counseling); [address] [place] [address]; [] [facility] (Psychiatry, Counseling, Case Management - has evening and weekend hours); [address] [place] [address]; If you or someone you know is struggling or in crisis, help is available. Call or text 988 or chat [email or web address]. -OR- Call the [facility] Crisis Hotline at 833-824-7716 -OR- Visit [facility] Psychiatric Emergency Services, in person, at [address] [place] [address]; You should return to the Emergency Department [...] Information Primary Emergency Contact: Karishma Deluca Address: [address] [place] [address] [place] [address] [facility] Mobile Relation: Daughter Secondary Emergency [...] prosthetic devices, implants and grafts, initial encounter ([facility]) Nondisplaced fracture of neck of left femur ([facility]) Lumbar compression fracture, closed, initial encounter ([facility]) Severe malnutrition (CMS/HCC) ([facility]) Unintentional weight loss Debility PFO (patent foramen ovale) Poor venous access Chronic back pain COPD (chronic obstructive pulmonary disease) ([facility]) Overview Signed 01/01/2022 6:48 AM by Interface, Incoming Problems- [facility] Conversion On home 3-4L NC DDD (degenerative disc disease), cervical Leukocytosis Malignant neoplasm of exocervix (HCC) Recurrent major depression ([facility]) Pulmonary nodule Overview Signed 01/01/2022 6:48 AM [...] (Temporal) Resp 16 Ht 1.651 m (5' 5) Wt 52.2 kg (115 lb) SpO2 91% BMI 19.14 kg/m Last documented pain score (0-10 scale): Last Weight: Wt Readings from Last 1 Encounters: 09/20/23 52.2 kg (115 lb) Mental Status: {SHAMA Patient Mental Status:52012} IV Access: {SHAMA IV Access:54664} Nursing Mobility/ADLs: Walking {YANETH ADL:::Independent} Transfer {YANETH ADL:::Independent} Bathing {YANETH ADL:::Independent} Dressing {YANETH ADL:::Independent} Toileting {YANETH ADL:::Independent} Feeding {YANETH ADL:::Independent} Sexton Helper {YANETH ADL:::Independent} Med Delivery {yes/no:79364} Wound Care Documentation and Therapy: Wound/Incision 05/21/22 Traumatic Eye Right (Active) Number of days: 487 Wound/Incision 05/21/22 Traumatic Wrist Left;Posterior (Active) Number of days: 487 Wound/Incision 11/07/22 Incision Leg Anterior;Left;Proximal;Upper (Active) Number of days: 318 Elimination: Continence: Bowel: {yes/no:41430} Bladder: {yes/no:61750} Urinary Catheter: {SHAMA Urinary Catheter:86707} Colostomy/Ileostomy/Ileal Conduit: {YES / NO:} Date of Last BM: Intake/Output Summary (Last 24 hours) at 09/21/2023 1408 Last data filed at 09/21/2023 0218 Gross per 24 hour Intake -- Output 800 ml Net -800 ml I/O last 3 completed shifts: In: 752.1 (14.4 mL/kg) [I.V.:52.1 (1 mL/kg); IV Piggyback:700] Out: 800 (15.3 mL/kg) [Urine:800 (0.4 mL/kg/hr)] Weight: 52.2 kg Safety Concerns: {SHAMA Safety Concerns:63686} Impairments/Disabilities: {SHAMA Impairments/Disabilities:57389} Nutrition Therapy: Current Nutrition Therapy: {SHAMA Diet List:02598} Routes of Feeding: {routes of feedin} Liquids: {liquid consistency:09956} Daily Fluid Restriction: {daily fluid restriction:02784} Last Modified Barium Swallow with Video (Video Swallowing Test): {done not done:42717} Treatments at the Time of Hospital Discharge: Respiratory Treatments: Oxygen Therapy: {Therapy; copd oxygen:65555} Ventilator: {SHAMA Ventilator:91467} Rehab Therapies: {GEN THERAPY DISCIPLINE [facility]:7959982} Weight Bearing Status/Restrictions: {POD WEIGHT BEARIN} Other Medical Equipment (for information only, NOT a DME order): {Assistive Devices DME:74591} Other Treatments: Patient's personal belongings (please select all that are sent with patient): {SHAMA Patient Belongings:66889} RN SIGNATURE: {E-signature:31213} CASE MANAGEMENT/SOCIAL WORK SECTION Inpatient Status Date: Discharging to Facility/ Agency Name: [facility] Address: [address] [place] [address] \ Dialysis Facility (if applicable) Name: Address: Dialysis Schedule: Phone: Fax: Hyster Driver/Pizza Chef signature: {E-signature:86587} PHYSICIAN SECTION Name: Gonzalo Deluca Prognosis: {Rehab Prognosis:20466} Condition at Discharge: {Patient Condition:11320} Rehab Potential (if transferring to Rehab): {Rehab Prognosis:64432} Recommended Labs or Other Treatments After Discharge: The individual is being admitted to a nursing facility directly from an [facility] or a unit of a [facility] that is not operated by or licensed by [facility] under section 5119.14 or 5160-3-15.1 5 The individual requires the level of services provided by a nursing facility for the condition for which he or she was treated in the hospital and, Physician Certification: I certify the above information and transfer of Gonzalo Deluca is necessary for the continuing treatment of the diagnosis listed and that she requires {SHAMA Level of Care:63213} for {greater less than:73502} 30 days. Update Admission H&P: {SHAMA Changes in H&P:39500} PHYSICIAN SIGNATURE: {E-signature:00879} documented in this encounter [facility] 09-21-2023 Note Formatting of this n ote might be different from the original. Received message from Reny Telles APRN. Daughter Karishma requesting information on resources available to receive additional help in the home. Placed call to [phone]. Left voice mail and return call back number. [facility] is not here tomorrow -plan to return on Tuesday09/23/23. Made referral to [facility] per Reny Telles APRN. [facility] 09-21-2023 Note Formatting of this n ote might be different from the original. Received message from Reny Telles APRN. Daughter Karishma requesting information on resources available to receive additional help in the home. Placed call to [phone]. Left voice mail and return call back number. [facility] is not here tomorrow -plan to return on Tuesday09/23/23. Made referral to [facility] per Reny Telles APRN. T [facility] [employer] [employer] 09-21-2023 Consult note Associated Order (s): IP CONSULT TO PSYCHIATRY Department of Psychiatry Consult Service Attending Consult Note Reason for Consult: History of anxiety and panic attacks. High [...] apparently had been a problem for her HR COORDINATOR. Initial presentation significant for hypokalemia and MARIA. [...] Cancer (CMS/HCC) (HCC) skin Cervical cancer (CMS/HCC) ([facility]) Chest pain COPD (chronic obstructive pulmonary disease) ([facility]) USE OXYGEN 3 L AT NIGHT DDD (degenerative disc disease), cervical Defect, retina, with detachment right DJD (degenerative joint disease), lumbar Emphysema lung ([facility]) Former smoker Hematuria SCHEDULED FOR THE PROCEDURE /SURGERY ON 02/11/2017 Hypokalemia Lung nodules Near syncope 09/19/2023 Osteoporosis Palpitations Pneumonia Recurrent major depression ([facility]) Sciatica Thoracic compression fracture ([facility]) Vitamin D deficiency Past Surgical History: [...] mg 650 mg Oral TID Saad Ezzie, SEED LABORATORY TECHNICIAN - SHOE TURNER 650 mg at 09/21/23 1339 buPROPion XL (Wellbutrin XL) 24 hr tablet 150 mg 150 mg Oral Daily Lauren Serna MD 150 mg at 09/21/23 0822 busPIRone (Buspar) tablet 15 mg 15 mg Oral TID Saad Ezzie, SEED LABORATORY TECHNICIAN - SHOE TURNER 15 mg at 09/21/23 1340 calcitonin (Miacalcin) injection 50 Units 50 Units IntraMUSCular Daily Lauren Serna MD 50 Units at 09/21/23 1217 [START ON 09/22/2023] cholecalciferol (Vitamin D-3) tablet 1,000 Units 1,000 Units Oral Daily Saad Ezzie, SEED LABORATORY TECHNICIAN - SHOE TURNER enoxaparin (Lovenox) syringe 40 mg 40 mg SubCUTAneous Daily Lauren Serna MD 40 mg at 09/21/23 0822 lidocaine (LMX) 4 % cream Topical PRN Lauren Serna MD melatonin tablet 3 mg 3 mg Oral Nightly Saad Ezzie, SEED LABORATORY TECHNICIAN - SHOE TURNER mirtazapine (Remeron) tablet 15 mg 15 mg Oral Nightly Saad Ezzie, SEED LABORATORY TECHNICIAN - SHOE TURNER 15 mg at 09/20/23 2123 mometasone-formoterol (Dulera [...] tablet 1 tablet Oral Nightly DB Merrill CNP tiotropium (Spiriva Respimat) 2.5 MCG/ACT inhaler 2 [...] Regular rate, rhythm, volume and articulation Mood: been better Affect: Restricted Thought process: Linear, goal directed [...] QT Interval 382 QTC Interval 446 P [place] 46 QRS [place] -35 T Wave [place] 147 LA Interval 142 Impression Sinus rhythm Nonspecific T [...] Significant recent weight loss, questionable PO intake HR COORDINATOR leading to weakness/fall. Prolonged QT related to [...] primary team. Follow up: will follow peripherally [facility] [employer] Work Phone: 09-21-2023 Consult note Associated Order (s): IP CONSULT TO PSYCHIATRY Department of Psychiatry Consult Service Attending Consult Note Reason for Consult: History of anxiety and panic attacks. High [...] apparently had been a problem for her HR COORDINATOR. Initial presentation significant for hypokalemia and MARIA. [...] Acute exacerbation of chronic obstructive pulmonary disease ([facility]) 04/12/2018 Allergic rhinitis Arthritis Asthma Bronchitis Cancer ([facility]) ([facility]) skin Cervical cancer ([facility]) ([facility]) Chest pain COPD (chronic obstructive pulmonary disease) ([facility]) USE OXYGEN 3 L AT NIGHT DDD (degenerative disc disease), cervical Defect, retina, with detachment right DJD (degenerative joint disease), lumbar Emphysema lung ([facility]) Former smoker Hematuria SCHEDULED FOR THE PROCEDURE /SURGERY ON 02/11/2017 Hypokalemia Lung nodules Near syncope 09/19/2023 Osteoporosis Palpitations Pneumonia Recurrent major depression ([facility]) Sciatica Thoracic compression fracture ([facility]) Vitamin D deficiency Past Surgical History: Past Surgical History: Procedure Laterality Date CYSTOSCOPY 01/12/2017 OFFICE PROCEDURE CYSTOSCOPY 02/11/2017 C&P bladder biopsy EYE SURGERY detached retina 1994 HYSTERECTOMY 11/06/2019 ABDOMINAL RADICAL HYSTERECTOMY WITH BSO AND PELVIC LYMPH; DR[facility] Z[facility]ENENDEZ [facility] ABE OTHER SURGICAL HISTORY Left 12/19/2019 Med Port [...] mg 650 mg Oral TID Saad Ezdariene, SEED LABORATORY TECHNICIAN - SHOE TURNER 650 mg at 09/21/23 1339 buPROPion XL (Wellbutrin XL) 24 hr tablet 150 mg 150 mg Oral Daily Lauren Serna MD 150 mg at 09/21/23 0822 busPIRone (Buspar) tablet 15 mg 15 mg Oral TID Saad Ezdariene, SEED LABORATORY TECHNICIAN - SHOE TURNER 15 mg at 09/21/23 1340 calcitonin (Miacalcin) injection 50 Units 50 Units IntraMUSCular Daily Lauren Serna MD 50 Units at 09/21/23 1217 [START ON 09/22/2023] cholecalciferol (Vitamin D-3) tablet 1,000 Units 1,000 Units Oral Daily Saad Ezzie, SEED LABORATORY TECHNICIAN - SHOE TURNER enoxaparin (Lovenox) syringe 40 mg 40 mg SubCUTAneous Daily Lauren Serna MD 40 mg at 09/21/23 0822 lidocaine (LMX) 4 % cream Topical PRN Lauren Serna MD melatonin tablet 3 mg 3 mg Oral Nightly Saad Ezzie, SEED LABORATORY TECHNICIAN - SHOE TURNER mirtazapine (Remeron) tablet 15 mg 15 mg Oral Nightly Saad Ezzie, SEED LABORATORY TECHNICIAN - SHOE TURNER 15 mg at 09/20/23 2123 mometasone-formoterol (Dulera [...] 30 mg 30 mg Oral Daily Saad Ezzie, SEED LABORATORY TECHNICIAN - SHOE TURNER 30 mg at 09/21/23 0822 perflutren protein [...] tablet 1 tablet Oral Nightly Saad Ezzie, SEED LABORATORY TECHNICIAN - SHOE TURNER tiotropium (Spiriva Respimat) 2.5 MCG/ACT inhaler 2 [...] Regular rate, rhythm, volume and articulation Mood: been better Affect: Restricted Thought process: Linear, goal directed [...] QT Interval 382 QTC Interval 446 P [place] 46 QRS [place] -35 T Wave [place] 147 [place] Interval 142 Impression Sinus rhythm Nonspecific T [...] Significant recent weight loss, questionable PO intake HR COORDINATOR leading to weakness/fall. Prolonged QT related to [...] peripherally Associated Order(s): IP CONSULT TO GERIATRICS [facility] Geriatric Medicine Inpatient Consult Service Admission [...] depression, Vit D deficiency, Osteoporosis presented to [facility] on 09/19/23 for fall. Found to [...] Psychiatry appointment Conversation with caregiver: will attempt 7/3 . Advance Care Planning Healthcare Power of Travelers' Aid Worker: Unknown Financial Power of Travelers' Aid Worker: Unknown Living Will:Unknown Code Status: Full Code [...] Chest pain COPD (chronic obstructive pulmonary disease) ([facility]) USE OXYGEN 3 L AT NIGHT DDD (degenerative disc disease), cervical Defect, retina, with detachment right DJD (degenerative joint disease), lumbar Emphysema lung (HCC) Former smoker Hematuria SCHEDULED FOR THE PROCEDURE /SURGERY ON 02/11/2017 Hypokalemia Lung nodules Near syncope 09/19/2023 Osteoporosis Palpitations Pneumonia Recurrent major depression ([facility]) Sciatica Thoracic compression fracture ([facility]) Vitamin D deficiency Past Surgical History: Procedure Laterality Date CYSTOSCOPY 01/12/2017 OFFICE PROCEDURE CYSTOSCOPY 02/11/2017 C&P bladder biopsy EYE SURGERY detached retina 1994 HYSTERECTOMY 11/06/2019 ABDOMINAL RADICAL HYSTERECTOMY WITH BSO AND PELVIC LYMPH; DR. ZIYAD MENENDEZ [facility] OTHER SURGICAL HISTORY Left 12/19/2019 Med [...] (96.3 F) (Temporal) Resp 18 Ht 5' 5 (1.651 m) Wt 115 lb (52.2 kg) [...] 468 ms QTC Interval 594 ms P Woodland 25 degrees QRS Woodland -48 degrees T Wave [place] 0 degrees [place] Interval 140 ms CBC auto differential Collection [...] 382 ms QTC Interval 446 ms P [place] 46 degrees QRS Woodland -35 degrees T Wave [place] 147 degrees [place] Interval 142 ms Transthoracic echocardiogram (TTE) complete [...] Junction 3.4 cm No results found for: TSH No components found for: B12 No results found for: VITD25 Reviewed: active problem list, medication list, allergies, family history, social history, notes from last encounter, notes from last several encounters, lab results, imaging Follow-up: will follow with you Saad Donricardo Telles APRN - [place] 09/20/23 4:58 PM Associated Order(s): IP CONSULT TO CARDIOLOGY [facility] [place] [facility] [place] Consult Note Reason for Consult/Chief Complaint: Syncope Established executive steward: None History of Present Illness: Gonzalo Deluca [...] O2-NC Assessment/Plan Fall/ Balance/ Debility. Consult for syncope. Long hx of falls. EKG ok. Tele [...] of falls, apparently mechanical and due to off balance. -Geriatric consult; address tools for stability. Mgt [...] primary service arrange f/u with patient's outpatient executive steward 1-2 wks. [] Recommended; unable to arrange at this time, will arrange post-discharge [] Arranged as follows: If there are any questions/concerns, please contact the covering provider. If no answer by Secure Chat, please call the cardiology office to obtain appropriate covering VBA DEVELOPER/physician. Medications: buPROPion XL, 150 mg, Oral, Daily [...] well perfused Laboratory Tests: Recent Labs 09/19/23 17009/20/23 0627 NA 140 137 K 2.3* 3.1* [...] HGBA1C 5.1 11/22/2019 No results found for: TSH Lab Results Component Value Date CHOL 132 11/22/2019 Lab Results Component Value Date HDL 41 11/22/2019 No results found for: LDLCALC Lab Results Component Value Date TRIG 116 11/22/2019 No results found for: CHOLHDL No results found for: LDLCHOLESTER No results for input(s): BNP in the last 72 hours. No results for input(s): INR in the last 72 hours. Results from last 7 days Lab Units 09/19/23 1707 AST U/L 35 ALT U/L 38* No results found for: IRON, TIBC, FERRITIN Radiology: CXR: personally reviewed: Hyperexpanded lung vazquez. [...] any previous visit. No results found for: EFBP, PLVEF, LVEFPHYS, LVEF2D, EF Ziyad A Klautky, MD DATE of SERVICE: 09/20/2023 Associated Order(s): [...] Allergic rhinitis Arthritis Asthma Bronchitis Cancer (CMS/HCC) ([facility]) skin Cervical cancer (CMS/HCC) ([facility]) Chest pain COPD (chronic obstructive pulmonary disease) ([facility]) USE OXYGEN 3 L AT NIGHT DDD (degenerative disc disease), cervical Defect, retina, with detachment right DJD (degenerative joint disease), lumbar Emphysema lung ([facility]) Former smoker Hematuria SCHEDULED FOR THE PROCEDURE /SURGERY ON 02/11/2017 Hypokalemia Lung nodules Near syncope 09/19/2023 Osteoporosis Palpitations Pneumonia Recurrent major depression ([facility]) Sciatica Thoracic compression fracture ([facility]) Vitamin D deficiency Past Surgical History [...] (Temporal) Resp 18 Ht 1.651 m (5' 5) Wt 52.2 kg (115 lb) SpO2 92% [...] in her chart. Labs CBC: Recent Labs 07/01/170609/19/23 1754 09/20/23 0627 WBC 19.5* -- 10.9* [...] -- 2.7* 2.3 PT/INR:No results for input(s): PROTIME, INR in the last 72 hours. APTT:No results for input(s): APTT in the last 72 hours. LIVER PROFILE: [...] follow with you. documented in this encounter [facility] 09-21-2023 Telephone encounter Note Orders or will Dr. Case follow? She will follow. We don't typically give home care orders. Melva Juárez PA-C [facility] 09-21-2023 Telephone encounter Note Ashley from [facility] Patient currently admitted for falls Need orders to follow for Home Care Call back number: [phone] [facility] 09-21-2023 Note Formatting of this n ote is different from the original. Images from the original note were not included. Care Management Progress Note Chart reviewed. Patient remains on 2 east for treatment of falls and lumbar compression. Has LSO brace at home (per Ortho notes). Geriatrics following. PT recommends return home with home care. engagement liaison following. Currently on 3 liters oxygen; wears [...] a lot of pain still. Home with daughter, 09/23/2023 SATURNINO Diaz 09/21/2023 9:02 AM 09/19- Ortho following for fractured vertebrae. On 3 liters. Up independently. 703- Still on 3L. In a lot of pain still. Home with daughter,Added blood pressure meds. 09/23/2023 SATURNINO Diaz 09/20/2023 9:21 AM 09/19- Ortho following for fractured vertebrae. On 3 liters. Up independently. 09/23/2023 Carolina Alvarez RN 09/20/2023 8:29 AM 09/23/2023 Heydi Ceballos MD 09/19/2023 8:42 PM 09/23/2023 Heydi Ceballos MD 09/19/2023 6:48 PM Length of Stay (Days): 2 GMLOS: No GMLOS Documented [facility] 09-21-2023 Note Formatting of this n ote is different from the original. Images from the original note were not included. Care Management Progress Note Chart reviewed. Patient remains on 2 east for treatment of falls and lumbar compression. Has LSO brace at home (per Ortho notes). Geriatrics following. PT recommends return home with home care. engagement liaison following. Currently on 3 liters oxygen; wears [...] a lot of pain still. Home with daughter, 09/23/2023 SATURNINO Diaz 09/21/2023 9:02 AM 09/19- Ortho following for fractured vertebrae. On 3 liters. Up independently. 703- Still on 3L. In a lot of pain still. Home with daughter,Added blood pressure meds. 09/23/2023 SATURNINO Diaz 09/20/2023 9:21 AM 09/19- Ortho following for fractured vertebrae. On 3 liters. Up independently. 09/23/2023 Carolina Alvarez RN 09/20/2023 8:29 AM 09/23/2023 Heydi Ceballos MD 09/19/2023 8:42 PM 09/23/2023 Heydi Ceballos MD 09/19/2023 6:48 PM Length of Stay (Days): 2 GMLOS: No GMLOS Documented [facility] 09-21-2023 Note Formatting of this n ote is different from the original. Start PACC Note Home Health Referral Educated patient and daughter, Karishma, on Home Care and services available. Patient offered choice of available HHC and agreeable to SN, PT services with [facility]. Care Types: [...] is noted as yes - consider a SWEAT BAND SEWER evaluation once the patient returns home. START PATIENT REGISTRATION INFORMATION Order Information Order Signing Physician: Nickolas Marrero MD Service Ordered RN ?: Yes Service Ordered PT ?: Yes Service Ordered OT ?: No Service Ordered ST ?: No Service Ordered SWEAT BAND SEWER?:No Service Ordered SENIOR MECHANICAL DESIGN ENGINEER?: No Following Physician: HERMINIA CASE MD Following Physician Overseeing Physician: HERMINIA CASE MD (Required for Residents only) Agreeable to Follow? Yes Date/Time of Call 09/21/23 2:04 PM, Spoke with: yes per call back received from office . Care Coordination Same Day SOC?: No Primary Care Physician: HERMINIA CASE MD Primary Care Physician Primary Care Physician Address: [address] [place], [place] [id number] Visit Instructions: N/A Service Discharge Location Type: Home with Home Health Care Service Facility Name: N/A Service Floor Facility: N/A Service Room No: N/A Demographics Patient Last Name: Yosi Patient First Name: Gonzalo Language/Communication Barrier: DAUGHTER KARISHMA IS CONTACT Service Address: [address] Service City: [facility] [place]: [place] Service ZIP: [address] Service Other phone numbers: Telephone Information: Emergency Contact: Extended Emergency Contact Information Primary Emergency Contact: Karishma Deluca Address: [address] [place] [address] [facility] Mobile Relation: Daughter Secondary Emergency Contact: Jace Deluca Mobile Relation: Son Admission Information Admit Date: 09/19/2023 Patient status at discharge: Inpatient Admitting Diagnosis: Near syncope [R55] Closed head injury, initial encounter [S09.90XA] Fall, initial encounter [W19.XXXA] Compression fracture of T7 vertebra, initial encounter ([facility]) [S22.060A] Compression fracture of T8 vertebra, initial encounter ([facility]) [S22.060A] Compression fracture of T5 vertebra, initial encounter ([facility]) [S22.050A] Compression fracture of L1 vertebra, initial encounter ([facility]) [S32.010A] Caregiver Information Caregiver First Name: DESTINY Caregiver Last Name: DESTINY Caregiver Relationship to Patient NA Caregiver Phone Number: NA Caregiver Notes: N/A Only [employer] List No END PATIENT REGISTRATION INFORMATION Pt [...] diagnoses: Discharge Date: TBD Referral Source-PACC: (Hospital/Unit): [facility] / B2-261/B2-261 A End PACC Note [facility] 09-21-2023 Note Formatting of this n ote is different from the original. Start PACC Note Home Health Referral Educated patient and daughter, Karishma, on Home Care and services available. Patient offered choice of available HHC and agreeable to SN, PT services with [facility]. Care Types: [...] is noted as yes - consider a SWEAT BAND SEWER evaluation once the patient returns home. START PATIENT REGISTRATION INFORMATION Order Information Order Signing Physician: Nickolas Marrero MD Service Ordered RN ?: Yes Service Ordered PT ?: Yes Service Ordered OT ?: No Service Ordered ST ?: No Service Ordered SWEAT BAND SEWER?:No Service Ordered SENIOR MECHANICAL DESIGN ENGINEER?: No Following Physician: HERMINIA CASE MD Following Physician Overseeing Physician: HERMINIA CASE MD (Required for Residents only) Agreeable to Follow? Yes Date/Time of Call 09/21/23 2:04 PM, Spoke with: yes per call back received from office . Care Coordination Same Day SOC?: No Primary Care Physician: HERMINIA CASE MD Primary Care Physician Primary Care Physician Address: [address] [place] [id number] Visit Instructions: N/A Service Discharge Location Type: Home with Home Health Care Service Facility Name: N/A Service Floor Facility: N/A Service Room No: N/A Demographics Patient Last Name: Yosi Patient First Name: Gonzalo Language/Communication Barrier: DAUGHTER KARISHMA IS CONTACT Service Address: [address] [place] [address] Service City: [facility] ST: [place] Service ZIP: [address] Service Other phone numbers: Telephone Information: Emergency Contact: Extended Emergency Contact Information Primary Emergency Contact: Nacho Delucai Address: [address] [place] [address] [place] [address] [facility] Mobile Relation: Daughter Secondary Emergency Contact: Jace Deluca Mobile Relation: Son Admission Information Admit Date: 09/19/2023 Patient status at discharge: Inpatient Admitting Diagnosis: Near syncope [R55] Closed head injury, initial encounter [S09.90XA] Fall, initial encounter [W19.XXXA] Compression fracture of T7 vertebra, initial encounter ([facility]) [S22.060A] Compression fracture of T8 vertebra, initial encounter ([facility]) [S22.060A] Compression fracture of T5 vertebra, initial encounter ([facility]) [S22.050A] Compression fracture of L1 vertebra, initial encounter ([facility]) [S32.010A] Caregiver Information Caregiver First Name: DESTINY Caregiver Last Name: NA Caregiver Relationship to Patient NA Caregiver Phone Number: NA Caregiver Notes: N/A Only [employer] List No END PATIENT REGISTRATION INFORMATION Pt [...] diagnoses: Discharge Date: TBD Referral Source-PACC: (Hospital/Unit): [facility] / B2-261/B2-261 A End PACC Note [facility] 09-21-2023 Plan of care note The patient is Moderately Unstable - Medium risk of patient condition declining or worsening The patient's goals for the shift include safety and comfort The clinical goals for the shift include safety [facility] 09-20-2023 Consult note Associated Order (s): IP CONSULT TO GERIATRICS [facility] Geriatric Medicine Inpatient Consult Service Admission [...] depression, Vit D deficiency, Osteoporosis presented to [facility] on 09/19/23 for fall. Found to [...] . Advance Care Planning Healthcare Power of Travelers' Aid Worker: Unknown Financial Power of Travelers' Aid Worker: Unknown Living Will:Unknown Code Status: Full Code [...] Allergic rhinitis Arthritis Asthma Bronchitis Cancer (CMS/HCC) ([facility]) skin Cervical cancer (CMS/HCC) ([facility]) Chest pain COPD (chronic obstructive pulmonary disease) ([facility]) USE OXYGEN 3 L AT NIGHT DDD (degenerative disc disease), cervical Defect, retina, with detachment right DJD (degenerative joint disease), lumbar Emphysema lung ([facility]) Former smoker Hematuria SCHEDULED FOR THE PROCEDURE /SURGERY ON 02/11/2017 Hypokalemia Lung nodules Near syncope 09/19/2023 Osteoporosis Palpitations Pneumonia Recurrent major depression ([facility]) Sciatica Thoracic compression fracture ([facility]) Vitamin D deficiency Past Surgical History: [...] (96.3 F) (Temporal) Resp 18 Ht 5' 5 (1.651 m) Wt 115 lb (52.2 kg) [...] 468 ms QTC Interval 594 ms P [place] 25 degrees QRS [place] -48 degrees T Wave [place] 0 degrees [place] Interval 140 ms CBC auto differential Collection [...] 44.2 (L) >60.0 mL/min/1.73m*2 Blood gas, venous ([facility]) Collection Time: 09/19/23 5:54 PM [...] 382 ms QTC Interval 446 ms P [place] 46 degrees QRS [place] -35 degrees T Wave [place] 147 degrees [place] Interval 142 ms Transthoracic echocardiogram (TTE) complete [...] Junction 3.4 cm No results found for: TSH No components found for: B12 No results found for: VITD25 Reviewed: active problem list, medication list, allergies, family history, social history, notes from last encounter, notes from last several encounters, lab results, imaging Follow-up: will follow with you Saad Telles APRN - [place] 09/20/23 4:58 PM [facility] 09-20-2023 Note Formatting of this n ote might be different from the original. Care Managment Initial Assessment Date: 09/20/2023 Patient Name: Gonzalo Deluca : 1955 Patient Information Source of Information: Patient Cognition/Language: WFL - Within Functional Limits Permission given to speak with patient instruments sales representative/caregiver as indicated: Yes Confirmation of Payer with patient/family: Yes Payer Name: [facility] Dual Complete [place]: No Confirmation of Primary Care Physician: Confirmed [...] Daily Living Prescription Coverage: Yes Pharmacy Used: [facility] in [place] Medication Management: Independent Transportation/Shopping: Transportation Mode: Car [...] to be discharged to: Home with possible [facility] Discharge Planning Actions: Continue to follow Patient's [...] home with possible HHC at this time. virtual classroom manager to follow and assist as needed. Carolina Alvarez RN [facility] [employer] 09-20-2023 Note Formatting of this n ote might be different from the original. Care Managment Initial Assessment Date: 09/20/2023 Patient Name: Gonzalo Deluca : 1955 Patient Information Source of Information: Patient Cognition/Language: WFL - Within Functional Limits Permission given to speak with patient instruments sales representative/caregiver as indicated: Yes Confirmation of Payer with patient/family: Yes Payer Name: [facility] Dual Complete : No Confirmation of Primary [...] Prescription Coverage: Yes Pharmacy Used: [facility] in [place] Medication Management: Independent Transportation/Shopping: Transportation Mode: Car [...] home with possible HHC at this time. virtual classroom manager to follow and assist as needed. Carolina Alvarez RN [facility] 09-20-2023 Consult note Associated Order (s): IP CONSULT TO CARDIOLOGY [facility] [place] [facility] [place] Consult Note Reason for Consult/Chief Complaint: Syncope Established executive steward: None History of Present Illness: Gonzalo Deluca [...] O2-NC Assessment/Plan Fall/ Balance/ Debility. Consult for syncope. Long hx of falls. EKG ok. Tele [...] of falls, apparently mechanical and due to off balance. -Geriatric consult; address tools for stability. Mgt [...] primary service arrange f/u with patient's outpatient executive steward 1-2 wks. [] Recommended; unable to arrange at this time, will arrange post-discharge [] Arranged as follows: If there are any questions/concerns, please contact the covering provider. If no answer by Secure Chat, please call the cardiology office to obtain appropriate covering VBA DEVELOPER/physician. Medications: buPROPion XL, 150 mg, Oral, Daily [...] well perfused Laboratory Tests: Recent Labs 09/19/23 17009/20/23 0627 NA 140 137 K 2.3* 3.1* [...] HGBA1C 5.1 11/22/2019 No results found for: TSH Lab Results Component Value Date CHOL 132 11/22/2019 Lab Results Component Value Date HDL 41 11/22/2019 No results found for: LDLCALC Lab Results Component Value Date TRIG 116 11/22/2019 No results found for: CHOLHDL No results found for: LDLCHOLESTER No results for input(s): BNP in the last 72 hours. No results for input(s): INR in the last 72 hours. Results from last 7 days Lab Units 09/19/23 1707 AST U/L 35 ALT U/L 38* No results found for: IRON, TIBC, FERRITIN Radiology: CXR: personally reviewed: Hyperexpanded lung vazquez. [...] any previous visit. No results found for: EFBP, PLVEF, LVEFPHYS, LVEF2D, EF Ziyad Ovalles MD DATE of SERVICE: 09/20/2023 T [facility] 09-20-2023 Consult note Associated Order (s): Inpatient [...] Allergic rhinitis Arthritis Asthma Bronchitis Cancer (CMS/HCC) ([facility]) skin Cervical cancer (CMS/HCC) ([facility]) Chest pain COPD (chronic obstructive pulmonary disease) ([facility]) USE OXYGEN 3 L AT NIGHT DDD (degenerative disc disease), cervical Defect, retina, with detachment right DJD (degenerative joint disease), lumbar Emphysema lung ([facility]) Former smoker Hematuria SCHEDULED FOR THE PROCEDURE /SURGERY ON 02/11/2017 Hypokalemia Lung nodules Near syncope 09/19/2023 Osteoporosis Palpitations Pneumonia Recurrent major depression ([facility]) Sciatica Thoracic compression fracture ([facility]) Vitamin D deficiency Past Surgical History Past Surgical History: Procedure Laterality Date CYSTOSCOPY 01/12/2017 OFFICE PROCEDURE CYSTOSCOPY 02/11/2017 C&P bladder biopsy EYE SURGERY detached retina 1994 HYSTERECTOMY 11/06/2019 ABDOMINAL RADICAL HYSTERECTOMY WITH BSO AND PELVIC LYMPH; DR. ZIYAD MENENDEZ [facility] OTHER SURGICAL HISTORY Left 12/19/2019 Med Port [...] (Temporal) Resp 18 Ht 1.651 m (5' 5) Wt 52.2 kg (115 lb) SpO2 92% [...] -- 2.7* 2.3 PT/INR:No results for input(s): PROTIME, INR in the last 72 hours. APTT:No results for input(s): APTT in the last 72 hours. LIVER PROFILE: [...] the consult we will follow with you. [facility] 09-20-2023 Plan of care note Problem: Knowledge [...] Recommendations to address these barriers include . [facility] 09-19-2023 Nurse Note Explained to patient about transfer to 261. Patient verbalized understanding. Report called to 2e rn. No further questions at present. Attempted to restart potassium. Patient c./o paon at iv site. Potassium slowed and arm raised. Patient transported with oxygen and transport monitor to room 261. [facility] 09-19-2023 Nurse Note Explained to patient about [...] when bed available. documented in this encounter [facility] 09-19-2023 History and physical note Images from the original note were not included. History and Physical [facility] Gonzalo Deluca : 1955 AGE [...] on TueSep 19, 2023 6:48 PM (Active) Track Layer Head RES: Heydi Ceballos MD, starting on TueSep [...] Allergic rhinitis Arthritis Asthma Bronchitis Cancer (CMS/HCC) ([facility]) skin Cervical cancer (CMS/HCC) ([facility]) Chest pain COPD (chronic obstructive pulmonary disease) ([facility]) USE OXYGEN 3 L AT NIGHT DDD (degenerative disc disease), cervical Defect, retina, with detachment right DJD (degenerative joint disease), lumbar Emphysema lung ([facility]) Former smoker Hematuria SCHEDULED FOR THE PROCEDURE /SURGERY ON 02/11/2017 Hypokalemia Lung nodules Near syncope 09/19/2023 Osteoporosis Palpitations Pneumonia Recurrent major depression ([facility]) Sciatica Thoracic compression fracture ([facility]) Vitamin D deficiency She is on 3 liters of oxygen chronically Past Surgical History: Procedure Laterality Date CYSTOSCOPY 01/12/2017 OFFICE PROCEDURE CYSTOSCOPY 02/11/2017 C&P bladder biopsy EYE SURGERY detached retina 1994 HYSTERECTOMY 11/06/2019 ABDOMINAL RADICAL HYSTERECTOMY WITH BSO AND PELVIC LYMPH; DR. ZIYAD MARISCAL [facility] OTHER SURGICAL HISTORY Left 12/19/2019 Med Port [...] (98.3 F) (Temporal) Resp 16 Ht 5' 5 (1.651 m) Wt 115 lb (52.2 kg) [...] 09/19/2023 468 QTC Interval 09/19/2023 594 P [place] 09/19/2023 25 QRS [place] 09/19/2023 -48 T Wave [place] 09/19/2023 0 LA Interval 09/19/2023 140 Auto WBC 09/19/2023 19.5 [...] QT Interval 468 QTC Interval 594 P [place] 25 QRS [place] -48 T Wave [place] 0 LA Interval 140 Impression Sinus rhythm Inferior infarct, [...] will request orthopedics to see her as [facility] orthopedics has seen her in the past [...] pharmacologic and mechanical contraindicated 09/19/2023 Gonzalo Deluca [id number] Any scheduled follow up appointments Extended Emergency Contact Information Primary Emergency Contact: Karishma Deluca Address: [address] [place] [address] [place] [address] [facility] Mobile Relation: Daughter Secondary Emergency Contact: Jace Deluca Mobile Relation: Son Portions of this note may be electronically transcribed. Please forward a copy of this H&P to the primary care physician. [employer] Phone: 09-19-2023 History and physical note Images from the original note were not included. History and Physical [facility] Gonzalo Deluca : 1955 AGE 67 y.o. YEARS Note Date 09/19/2023 Primary Care Physician:HERMINIA CASE MD Current Providers as of 09/19/2023 PCP: Herminia Case MD Care Team Provider: Ziyad Menendez MD Care Team Provider: DB Durham CNP Care Team Provider: DB Kohli CNP Referring Provider: not found, starting on TueSep 19, 2023 12:00 AM Admitting Provider: Nickloas Marrero MD, (Active) Attending Provider: Jono Weathers MD, starting on TueSep 19, 2023 4:43 PM, ending on TueSep 19, 2023 8:41 PM (Inactive) Attending Provider: Nickolas Marrero MD, starting on TueSep 19, 2023 6:48 PM (Active) Track Layer Head RES: Heydi Ceballos MD, starting on TueSep [...] Allergic rhinitis Arthritis Asthma Bronchitis Cancer (CMS/HCC) (FORM[facility]LY [facility]) skin Cervical cancer (CMS/HCC) ([facility]) Chest pain COPD (chronic obstructive pulmonary disease) ([facility]) USE OXYGEN 3 L AT NIGHT DDD (degenerative disc disease), cervical Defect, retina, with detachment right DJD (degenerative joint disease), lumbar Emphysema lung ([facility]) Former smoker Hematuria SCHEDULED FOR THE PROCEDURE /SURGERY ON 02/11/2017 Hypokalemia Lung nodules Near syncope 09/19/2023 Osteoporosis Palpitations Pneumonia Recurrent major depression ([facility]) Sciatica Thoracic compression fracture ([facility]) Vitamin D deficiency She is on 3 liters of oxygen chronically Past Surgical History: Procedure Laterality Date CYSTOSCOPY 01/12/2017 OFFICE PROCEDURE CYSTOSCOPY 02/11/2017 C&P bladder biopsy EYE SURGERY detached retina 1994 HYSTERECTOMY 11/06/2019 ABDOMINAL RADICAL HYSTERECTOMY WITH BSO AND PELVIC LYMPH; DR. ZIYAD MENENDEZ ACH ABE OTHER SURGICAL HISTORY Left 12/19/2019 Med Port [...] (98.3 F) (Temporal) Resp 16 Ht 5' 5 (1.651 m) Wt 115 lb (52.2 kg) [...] 09/19/2023 468 QTC Interval 09/19/2023 594 P [place] 09/19/2023 25 QRS [place] 09/19/2023 -48 T Wave [place] 09/19/2023 0 LA Interval 09/19/2023 140 Auto WBC 09/19/2023 19.5 [...] QT Interval 468 QTC Interval 594 P [place] 25 QRS [place] -48 T Wave [place] 0 LA Interval 140 Impression Sinus rhythm Inferior infarct, [...] will request orthopedics to see her as [facility] orthopedics has seen her in the past [...] pharmacologic and mechanical contraindicated 09/19/2023 Gonzalo Deluca [id number] Any scheduled follow up appointments Extended Emergency Contact Information Primary Emergency Contact: Karishma Deluca Address: [address] [place] [address] [place] [address] [facility] Mobile Relation: Daughter Secondary Emergency Contact: Jace Deluca Mobile Relation: Son Portions of this note may be electronically transcribed. Please forward a copy of this H&P to the primary care physician. documented in this encounter [facility] 09-19-2023 Nurse Note Patient arrived from er to room 463 bed 2. Patient is alert and oriented. Realized patient required private room bed coordinator notified. Will be transferred when bed available. [facility] 09-19-2023 Emergency department Note Floor advised of pt coming to floor. VERA Brown 09/19/231945 [facility] 09-19-2023 Emergency department Note Floor advised of pt coming to floor. VERA Brown 09/19/231945 Pt provided with a toni laurie and chicken salad sandwich. VERA Brown 09/19/231939 Pt on 2lpm of oxygen. Pt 89% on room air. Oxygen increased to 3lpm. VERA Brown 09/19/23 1732 Pt to radiology. EVRA Brown 09/19/23 1711 EMERGENCY DEPARTMENT ENCOUNTER Pt [...] Allergic rhinitis Arthritis Asthma Bronchitis Cancer (CMS/HCC) ([facility]) skin Cervical cancer (CMS/HCC) ([facility]) Chest pain COPD (chronic obstructive pulmonary disease) ([facility]) USE OXYGEN 3 L AT NIGHT DDD (degenerative disc disease), cervical Defect, retina, with detachment right DJD (degenerative joint disease), lumbar Emphysema lung (HCC) Former smoker Hematuria SCHEDULED FOR THE PROCEDURE /SURGERY ON 02/11/2017 Hypokalemia Lung nodules Near syncope 09/19/2023 Osteoporosis Palpitations Pneumonia Recurrent major depression ([facility]) Sciatica Thoracic compression fracture ([facility]) Vitamin D deficiency SURGICAL HISTORY Past [...] Resource Strain: Low Risk (05/20/2023) Received from [facility] Overall Financial Resource Strain (CARDIA) Difficulty of Paying Living Expenses: Not very hard Food Insecurity: No Food Insecurity (05/20/2023) Received from [facility] Hunger Vital Sign Worried About Running Out of Food in the Last Year: Never true Ran Out of Food in the Last Year: Never true Transportation Needs: No Transportation Needs (05/20/2023) Received from [facility] PRAPARE - Transportation Lack of Transportation (Medical): No Lack of Transportation (Non-Medical): No Physical Activity: Inactive (05/20/2023) Received from [facility] Exercise Vital Sign Days of Exercise per Week: 0 days Minutes of Exercise per Session: 0 min Stress: Stress Concern Present (05/20/2023) [facility] [place] [facility] - Occupational Stress Questionnaire Feeling of Stress : To some extent Social Connections: Unknown (05/20/2023) Received from [facility], [facility] Social Connection and Isolation Panel [NHANES] Frequency of Communication with Friends and Family: Twice a week Frequency of Social Gatherings with Friends and Family: Patient declined Attends Anabaptism Services: Never Active Member of Clubs or Organizations: No Attends Club or Organization Meetings: Patient declined Marital Status: Intimate Partner Violence: Not At Risk (05/21/2022) Humiliation, Afraid, Rape, and Kick questionnaire Fear of Current or Ex-Partner: No Emotionally Abused: No Physically Abused: No Sexually Abused: No Housing Stability: Low Risk (05/20/2023) Received from [facility], [facility] Housing Stability Vital Sign Unable to Pay for Housing in the Last Year: No Number of Places Lived in the Last Year: 1 In the last 12 months, was there a time when you did not have a steady place to sleep or slept in a long-term (including now)?: No SCREENINGS PHYSICAL EXAM ED [...] me with my interpretation noted below in MDM. Refer to [facility] for official interpretation. RADIOLOGY: Refer to [facility] below for my independent interpretation. [...] Culture. Procedure Abnormality Status --------- ------ Complete Urinalysis[[id number]] Please view results for these tests on [...] kg (115 lb) Height: 1.651 m (5' 5) Clinical Impression: The patient presented with chief [...] Compression fracture of T5 vertebra, initial encounter ([facility]) Compression fracture of T7 vertebra, initial encounter ([facility]) Compression fracture of T8 vertebra, initial encounter (HCC) Compression fracture of L1 vertebra, initial encounter ([facility]) External records reviewed: Chronic conditions impacting [...] Compression fracture of T5 vertebra, initial encounter ([facility]) 5. Compression fracture of T7 vertebra, initial encounter ([facility]) 6. Compression fracture of T8 vertebra, initial encounter ([facility]) 7. Compression fracture of L1 vertebra, initial encounter ([facility]) DISPOSITION Admit 09/19/2023 06:48:16 PM PATIENT [...] Medicine Resident Heydi Ceballos MD Resident 09/19/23 1893 Emergency Department Encounter [facility] ED Patient: Gonzalo Deluca : 1955 Date [...] for clarification.) Jono Weathers MD Acute Care [facility] Jono Weathers MD 09/19/231903 documented in this encounter [facility] 09-19-2023 Emergency department Note Pt provided with a toni laurie and chicken salad sandwich. VERA Brown 09/19/23 1940 [facility] 09-19-2023 Emergency department Note Pt on 2lpm of oxygen. Pt 89% on room air. Oxygen increased to 3lpm. VERA Brown 09/19/23 1732 [facility] 09-19-2023 Emergency department Note Pt to radiology. VERA Brown 09/19/23 1711 [facility] 09-19-2023 Physician Emergency department Note EMERGENCY DEPARTMENT [...] Allergic rhinitis Arthritis Asthma Bronchitis Cancer (CMS/HCC) ([facility]) skin Cervical cancer (CMS/HCC) ([facility]) Chest pain COPD (chronic obstructive pulmonary disease) ([facility]) USE OXYGEN 3 L AT NIGHT DDD (degenerative disc disease), cervical Defect, retina, with detachment right DJD (degenerative joint disease), lumbar Emphysema lung ([facility]) Former smoker Hematuria SCHEDULED FOR THE PROCEDURE /SURGERY ON 02/11/2017 Hypokalemia Lung nodules Near syncope 09/19/2023 Osteoporosis Palpitations Pneumonia Recurrent major depression ([facility]) Sciatica Thoracic compression fracture ([facility]) Vitamin D deficiency SURGICAL HISTORY Past [...] Resource Strain: Low Risk (05/20/2023) Received from [facility] Overall Financial Resource Strain (CARDIA) Difficulty of Paying Living Expenses: Not very hard Food Insecurity: No Food Insecurity (05/20/2023) Received from [facility] Hunger Vital Sign Worried About Running Out of Food in the Last Year: Never true Ran Out of Food in the Last Year: Never true Transportation Needs: No Transportation Needs (05/20/2023) Received from [facility] PRAPARE - Transportation Lack of Transportation (Medical): No Lack of Transportation (Non-Medical): No Physical Activity: Inactive (05/20/2023) Received from [facility] Exercise Vital Sign Days of Exercise per Week: 0 days Minutes of Exercise per Session: 0 min Stress: Stress Concern Present (05/20/2023) Received from [facility] [place] [facility] Occup[facility] - Occupational Stress Questionnaire Feeling of Stress : To some extent Social Connections: Unknown (05/20/2023) Received from [facility] Social Connection and Isolation Panel [NHANES] Frequency of Communication with Friends and Family: Twice a week Frequency of Social Gatherings with Friends and Family: Patient declined Attends Anabaptism Services: Never Active Member of Clubs or Organizations: No Attends Club or Organization Meetings: Patient declined Marital Status: Intimate Partner Violence: Not At Risk (05/21/2022) Humiliation, Afraid, Rape, and Kick questionnaire Fear of Current or Ex-Partner: No Emotionally Abused: No Physically Abused: No Sexually Abused: No Housing Stability: Low Risk (05/20/2023) Received from [facility] Housing Stability Vital Sign Unable to Pay for Housing in the Last Year: No Number of Places Lived in the Last Year: 1 In the last 12 months, was there a time when you did not have a steady place to sleep or slept in a long-term (including now)?: No SCREENINGS PHYSICAL EXAM ED [...] me with my interpretation noted below in [facility]. Refer to [facility] for official interpretation. RADIOLOGY: Refer to [facility] below for my independent interpretation. [...] Culture. Procedure Abnormality Status --------- ------ Complete Urinalysis[[id number]] Please view results for these tests on [...] kg (115 lb) Height: 1.651 m (5' 5) Clinical Impression: The patient presented with chief [...] admitted in stable condition. Diagnoses as of 09/19/231899 Near syncope Closed head injury, initial encounter Fall, initial encounter Compression fracture of T5 vertebra, initial encounter ([facility]) Compression fracture of T7 vertebra, initial encounter ([facility]) Compression fracture of T8 vertebra, initial encounter ([facility]) Compression fracture of L1 vertebra, initial encounter ([facility]) External records reviewed: Chronic conditions impacting [...] Compression fracture of T5 vertebra, initial encounter ([facility]) 5. Compression fracture of T7 vertebra, initial encounter ([facility]) 6. Compression fracture of T8 vertebra, initial encounter ([facility]) 7. Compression fracture of L1 vertebra, initial encounter ([facility]) DISPOSITION Admit 09/19/2023 06:48:16 PM PATIENT [...] Medicine Resident Heydi Ceballos MD Resident 09/19/231907 [facility] 09-19-2023 Physician Emergency department Note Emergency Department Encounter [facility] ED Patient: Gonzalo Deluca : 1955 Date [...] [employer] Jono Weathers MD 09/19/231903 [facility] Phone: 09-16-2023 Telephone encounter Note Prescription Refill [...] Shay LPN September 16, 2023 10:08 AM [facility] 09-16-2023 Miscellaneous Notes Prescription Refill Information [...] 2023 10:08 AM documented in this encounter [facility] 09-15-2023 Telephone encounter Note Mychart sent [facility] 09-15-2023 Miscellaneous Notes Mychart sent Schedule follow up appt with me for chronic pain Pharmacy verified in Epic Patient has been [...] Silvia Trejo MA documented in this encounter [facility] 09-15-2023 Telephone encounter Note Schedule follow up appt with me for chronic pain [facility] 09-15-2023 Telephone encounter Note Pharmacy verified in Epic [...] 7.9 oz) Please advise. Silvia Trejo MA [facility] 09-14-2023 Telephone encounter Note Prescription Refill [...] Shay LPN September 14, 2023 10:57 AM [facility] 09-14-2023 Miscellaneous Notes Prescription Refill Information [...] 2023 10:57 AM documented in this encounter [facility] 09-08-2023 Note HNO ID: [id number] Author: BARBI GOLDBERG MD Service: ? Author [...] (99.3 ?F) (Temporal) Ht 164.1 cm (5' 4.61) Wt 55.5 kg (122 lb 5.7 oz) [...] PREDNISONE 10 MG TABLET Barbi Goldberg MD [facility] 09-08-2023 History of Presen t illness Narrative [...] (99.3 F) (Temporal) Ht 164.1 cm (5' 4.61) Wt 55.5 kg (122 lb 5.7 oz) [...] due on 03/21/2023 documented in this encounter [facility] 09-08-2023 Note HNO ID: [id number] Author: TATE WEATHERS MA Service: ? Author Type: Manager Legal Type: Progress Notes Filed: 09/08/2023 16:09 Note Text: Mammogram Screening Never done Colorectal Cancer Screening Never done RSV Vaccine(1 - 1-dose 60+ series) Never done Shingrix Vaccine(2 of 2) due on 12/06/2019 Bone Density Screening due on 2021 Lung Cancer Screening due on 10/14/2022 Covid-19 Vaccine( season) Never done Advance Directive Discussion due on 03/21/2023 [facility] 09-07-2023 Telephone encounter Note LM for patient letting her know we have not received the form from [employer]. Whit Shay LPN [facility] 09-07-2023 Miscellaneous Notes LM for patient letting her know we have not received the form from [employer]. Whit Shay LPN Gonzalo is calling Herminia Case MD today with concern regarding Electronic Communication (FAX from [employer] is going to be coming over that needs to be faxed back to them ) Patient has been identified by name and birthdate. Duration of symptoms: N/A Person calling: self daughter: Karishma Call patient at: at home [phone] (home) [phone] (cell) Was an appointment scheduled: No Closing statement: Results or non-symptom based questions: Thank you for calling [facility], your call will be returned within the next business day. Lala Jay documented in this encounter [facility] 09-06-2023 Telephone encounter Note Gonzalo is calling Herminia Case MD today with concern regarding Electronic Communication (FAX from [employer] is going to be coming over that needs to be faxed back to them ) Patient has been identified by name and birthdate. Duration of symptoms: N/A Person calling: self daughter: Karishma Call patient at: at home [phone] (home) [phone] (cell) Was an appointment scheduled: No Closing statement: Results or non-symptom based questions: Thank you for calling [facility], your call will be returned within the next business day. Lala Rosas Pss [facility] 08-22-2023 Telephone encounter Note Last appointment: 05/20/23 Next appointment: 08/24/23 Pharmacy verified in [facility]. Refill(s) requested: Requested Prescriptions Pending Prescriptions Disp Refills oxyCODONE-acetaminophen (PERCOCET) 5-325 mg tablet 120 tablet 0 Sig: Take 1 tablet by mouth every 6 hours as needed for pain for up to 30 days. Refused Prescriptions Disp Refills cyclobenzaprine (FLEXERIL) 5 mg tablet 30 tablet 2 Sig: Take 1 tablet by mouth every 12 hours. Order(s) pended. Please advise. Tate Weathers MA, PAINT PREP TECHNICIAN [facility] 08-22-2023 Miscellaneous Notes Last appointment: 05/20/23 Next appointment: 08/24/23 Pharmacy verified in [facility]. Refill(s) requested: Requested Prescriptions Pending Prescriptions Disp Refills oxyCODONE-acetaminophen (PERCOCET) 5-325 mg tablet 120 tablet 0 Sig: Take 1 tablet by mouth every 6 hours as needed for pain for up to 30 days. Refused Prescriptions Disp Refills cyclobenzaprine (FLEXERIL) 5 mg tablet 30 tablet 2 Sig: Take 1 tablet by mouth every 12 hours. Order(s) pended. Please advise. Tate Weathers MA, PAINT PREP TECHNICIAN documented in this encounter [facility] 08-05-2023 Telephone encounter Note Last appointment: 06/10/23 Next appointment: 08/16/23 Pharmacy verified in [facility]. Refill(s) requested: Requested Prescriptions Pending Prescriptions Disp Refills cyclobenzaprine (FLEXERIL) 5 mg tablet [Pharmacy Med Name: CYCLOBENZAPRINE 5 MG TABLET] 30 tablet 2 Sig: take 1 tablet by mouth twice a day as needed Order(s) pended. Please advise. Whit Shay LPN, CMA [facility] 08-05-2023 Miscellaneous Notes Last appointment: 06/10/23 Next appointment: 08/16/23 Pharmacy verified in [facility]. Refill(s) requested: Requested Prescriptions Pending Prescriptions Disp Refills cyclobenzaprine (FLEXERIL) 5 mg tablet [Pharmacy Med Name: CYCLOBENZAPRINE 5 MG TABLET] 30 tablet 2 Sig: take 1 tablet by mouth twice a day as needed Order(s) pended. Please advise. Whit Shay LPN, CMA documented in this encounter [facility] 07-23-2023 Telephone encounter Note Last appointment: 06/10/23 Next appointment: 08/03/23 Pharmacy verified in [facility]. Refill(s) requested: Requested Prescriptions Pending Prescriptions Disp Refills oxyCODONE-acetaminophen (PERCOCET) 5-325 mg tablet 120 tablet 0 Sig: Take 1 tablet by mouth every 6 hours as needed for pain for up to 30 days. Order(s) pended. Please advise. Whit Shay LPN, CMA [facility] 07-23-2023 Miscellaneous Notes Last appointment: 06/10/23 Next appointment: 08/03/23 Pharmacy verified in [facility]. Refill(s) requested: Requested Prescriptions Pending Prescriptions Disp Refills oxyCODONE-acetaminophen (PERCOCET) 5-325 mg tablet 120 tablet 0 Sig: Take 1 tablet by mouth every 6 hours as needed for pain for up to 30 days. Order(s) pended. Please advise. Whit Shay LPN PAINT PREP TECHNICIAN documented in this encounter [facility] 07-20-2023 Telephone encounter Note Pharmacy verified in Epic [...] 3.5 mEq/L B12: No results found for: B12 Please advise. Nicole Sabillon MA [facility] 07-20-2023 Miscellaneous Notes Pharmacy verified in [facility] Patient has been identified by name and [...] 3.5 mEq/L B12: No results found for: B12 Please advise. Nicole Sabillon MA documented in this encounter [facility] 07-08-2023 Telephone encounter Note LM for patient to call the office. Whit Shay LPN [facility] 07-08-2023 Miscellaneous Notes LM for patient to call the office. Whit Shay LPN Rx sent for advair which is similar. Received fax from [employer], the Fluticasone-Vilanterol 200-25, is not covered by insurance. Please advise. Whit Shay LPN documented in this encounter [facility] 07-08-2023 Telephone encounter Note Rx sent for advair which is similar. [facility] 07-04-2023 Miscellaneous Notes Pharmacy verified in [facility] Patient has been identified by name and [...] Alejandra Reno MA documented in this encounter [facility] 06-30-2023 Telephone encounter Note Received fax from [facility], the Fluticasone-Vilanterol 200-25, is not covered by insurance. Please advise. Whit Shay LPN [facility] 06-28-2023 Miscellaneous Notes Last appointment: 06/10/23 Next appointment: 07/22/23 Pharmacy verified in [facility]. Refill(s) requested: Requested Prescriptions Pending Prescriptions Disp Refills fluticasone-vilanterol (BREO ELLIPTA) 200-25 mcg/dose inhaler 60 Each 5 Sig: Inhale 1 Inhalation as instructed once daily. Order(s) pended. Please advise. Whit Shay LPN, PAINT PREP TECHNICIAN documented in this encounter [facility] 06-27-2023 Miscellaneous Notes Pharmacy verified in [facility] Patient has been identified by name and [...] Alejandra Reno MA documented in this encounter [facility] 06-24-2023 Miscellaneous Notes Last appointment: 06/10/23 Next appointment: 07/22/23 Pharmacy verified in [facility]. Refill(s) requested: Requested Prescriptions Pending Prescriptions Disp Refills busPIRone (BUSPAR) 15 mg tablet 90 tablet 0 Sig: Take 1 tablet by mouth three times a day. Order(s) pended. Please advise. Rayo Roman MA, PAINT PREP TECHNICIAN documented in this encounter [facility] 06-11-2023 Miscellaneous Notes Last appointment: 06/10/23 Next appointment: 07/22/23 Pharmacy verified in [facility]. Refill(s) requested: Requested Prescriptions Pending Prescriptions Disp Refills cyclobenzaprine (FLEXERIL) 5 mg tablet [Pharmacy Med Name: CYCLOBENZAPRINE 5 MG TABLET] 30 tablet 2 Sig: take 1 tablet by mouth twice a day as needed Order(s) pended. Please advise. Whit Shay LPN, PAINT PREP TECHNICIAN documented in this encounter [facility] 06-10-2023 History of Presen t illness Narrative VIRTUAL VISIT PROGRESS NOTE This is a virtual visit using [employer] Video Visit. It required patient-provider interaction for the medical decision making as documented below. I have communicated my name and active licensure. The patient's identity and physical location were verified at the time of this visit. Either the patient or their legal instruments sales representative has been informed of the [...] Diagnosis Date COPD (chronic obstructive pulmonary disease) ([facility]) DDD (degenerative disc disease), lumbar Encounter [...] Herminia Case MD documented in this encounter [facility] 05-27-2023 Miscellaneous Notes Pharmacy verified in Epic [...] 3.5 mEq/L B12: No results found for: B12 Please advise. Nicole Sabillon Ma documented in this encounter [facility] 05-26-2023 Miscellaneous Notes Last appointment: 05-20-23 Next appointment: 06-10-23 Pharmacy verified in [facility]. Refill(s) requested: Requested Prescriptions Pending Prescriptions Disp Refills busPIRone (BUSPAR) 15 mg tablet 90 tablet 0 Sig: Take 1 tablet by mouth three times a day. Order(s) pended. Please advise. Evangelina Baltazar MA, [facility] documented [facility] this encounter [facility] [facility]23 Miscellaneous Notes Type of letter/form/fax request - orders Form [facility] Placed on desk () for completion. Completed form needs to be faxed to [phone]. Route to [place] when form completed for processing documented in this encounter [facility] 05-25-2023 Miscellaneous Notes Request completed and faxed to [phone] with confirmation of receipt. Placed on Whit TRIANA desk for filing Done. Type of letter/form/fax request - Home Health Care Orders Form received from [facility] on 05/18/23 floor and placed on desk () for completion. Completed form needs to be faxed to [phone]. Route to [place] when form completed for processing documented in this encounter [facility] 05-20-2023 History of Presen t illness Narrative VIRTUAL VISIT PROGRESS NOTE This is a virtual visit using [employer] Zoom Video Visit. It required patient-provider interaction for the medical decision making as documented below. I have communicated my name and active licensure. The patient's identity and physical location were verified at the time of this visit. Either the patient or their legal instruments sales representative has been informed of the [...] Herminia Case MD documented in this encounter [facility] 05-19-2023 Miscellaneous Notes Home care Certification Form 485 received from 05/18/23. For cert dates 05/11/23 to 07/09/23 that were signed on 05/18/23. Recertification Patient's home health 485 form / care plan for stated certification period reviewed and signed. Relevant medical records were reviewed. No changes were indicated documented in this encounter [facility] 05-18-2023 Miscellaneous Notes Request completed and faxed. Done. Type of letter/form/fax request - Home Health Care Orders Form received from [facility] on floor and placed on MD desk () for completion. Completed form needs to be faxed to [phone]. Route to MA when form completed for processing documented in this encounter [facility] 05-09-2023 Miscellaneous Notes Request completed and faxed. Type of letter/form/fax request - Home Health Care Orders Form received from [facility] on 05/06/23 floor and placed on MD desk () for completion. Completed form needs to be faxed to [phone]. Route to MA when form completed for processing documented in this encounter [facility] 05-02-2023 History of Presen t illness Narrative Patient presents with: Follow Up HPI: Gonzalo Deluca is a 67 year old female who presents to the office today for follow up. Anxiety - on paxil, switched from cymbalta to paxil. Chronic pain Left hip fracture - 10/2022 Compression fracture 01/2023 Went to rehab , then home right before [place] Back home currently, home nursing PT and [...] Prosthetic Devices, Implants and Grafts, Initial Encounter ([facility]) Pna (Pneumonia) Right Arm Weakness Poor Venous [...] (98.1 F) (Temporal) Ht 164.1 cm (5' 4.61) Wt 60.1 kg (132 lb 7.9 oz) [...] due on 03/21/2023 documented in this encounter [facility] 05-02-2023 Instructions Whit Shay LPN - 05/02/2023 2:26 PM EST [facility] TEST INFORMATION [facility] BU[facility] LAB HOURS: Lab is open: 7:30am to 5:00pm - , 7:30am to 4:00pm on Tue and 8am -12pm on Tue. The lab is located in [facility] on the first floor. There is a registration window at the lab, available 7 am to 3 pm Tuesday - Tuesday. If registration is unavailable at the lab, you may register at the patient registration office near the front lobby of the [facility]. SCHEDULING A LAB APPOINTMENT: Laboratory appointments are recommended.Walk ins are still accepted. Call [phone] or schedule via [employer] scheduling ticket. ROUTINE LAB ORDERS 60 days [...] REFILL REQUESTS Request prescription refills through your [employer] account or contact your Pharmacy. My Chart Schedule My Appointment enables you to view your established primary care provider's open schedule and book an appointment online in real-time. This feature is available in internal medicine, family medicine, or pediatrics at any of our [facility] locations and main campus. documented in this encounter [facility] 04-29-2023 Miscellaneous Notes Spoke to Amanda who states she has been seeing patient for a few months for palliative care. Discharged from facility about a month ago Fall and Hip fx Fall with femur fx On continuous O2 3.5L - COPD Clonazepam not reordered when she left facility - provider requesting OV Walking with walker [facility] home health care nurse also seeing pt. OV scheduled Tuesday Gonzalo is a patient of Herminia Case MD today NADEEM Patel from [facility] is calling to speak to the nurse to review medications. She has questions related to her anxiety and respiratory status. She stated it was not urgent but needs to speak to the nurse/provider today. Patient has been identified by name and birthdate. Closing statement: Symptom Call: Thank you for calling [facility], your call is very important. A nurse will call in approximately 2-4 hours during business hours. If this is an emergency, please contact 911. Tiara Jay documented in this encounter [facility] 04-27-2023 Miscellaneous Notes Please review and advise documented in this encounter [facility] 04-27-2023 Telephone encounter Note Patient cancelled 04-27 appointment via [employer] with the following: Reason for Cancellation: Patient: Lack of Transportation LVM to r/s [facility] 04-27-2023 Miscellaneous Notes Patient cancelled 04-27 appointment via [employer] with the following: Reason for Cancellation: Patient: Lack of Transportation LVM to r/s Patient cancelled 04-22 appointment via [employer] stating: Reason for Cancellation: Patient: Schedule Conflict LVM for patient to call back and get r/s documented in this encounter [facility] 04-21-2023 Telephone encounter Note Patient cancelled 04-22 appointment via [employer] stating: Reason for Cancellation: Patient: Schedule Conflict LVM for patient to call back and get r/s [facility] 04-21-2023 Miscellaneous Notes Request completed and faxed. Type of letter/form/fax request - Home Health Care Orders Form received from [facility] on 04/17/23 floor and placed on MD desk () for completion. Completed form needs to be faxed to [phone]. Route to [place] when form completed for processing documented in this encounter [facility] 03-11-2023 History of Past i llness Narrative Problem Noted Date Diagnosed Date Resolved Date Chronic pain syndrome 03/11/20232022 Moderate malnutrition 01/22/20232022 COPD (chronic obstructive pu lmonary disease) with acute bronchitis (HCC) 02/02/2021 03/09/2023 Obesity, Class I, BMI 30-34.9 12/07/2018 03/11/2023 documented as of this encounter (statuses as of 04/22/2023) [facility] History of Past illness Narrative* Problem Noted Date Diagnosed Date Resolved Date Chronic pain syndrome 03/11/20232022 Moderate malnutrition 01/22/20232022 COPD (chronic obstructive pu lmonary disease) with acute bronchitis (HCC) 02/02/2021 03/09/2023 Obesity, Class I, BMI 30-34.9 12/07/2018 03/11/2023 documented as of this encounter (statuses as of 04/28/2023) [facility] History of Past illness Narrative* Problem Noted Date Diagnosed Date Resolved Date Chronic pain syndrome 03/11/20232022 Moderate malnutrition 01/22/20232022 COPD (chronic obstructive pu lmonary disease) with acute bronchitis (HCC) 02/02/2021 03/09/2023 Obesity, Class I, BMI 30-34.9 12/07/2018 03/11/2023 documented as of this encounter (statuses as of 05/03/2023) [facility] History of Past illness Narrative* Problem Noted Date Diagnosed Date Resolved Date Chronic pain syndrome 03/11/20232022 Moderate malnutrition 01/22/20232022 COPD (chronic obstructive pu lmonary disease) with acute bronchitis (HCC) 02/02/2021 03/09/2023 Obesity, Class I, BMI 30-34.9 12/07/2018 03/11/2023 documented as of this encounter (statuses as of 05/09/2023) [facility] History of Past illness Narrative* Problem Noted Date Diagnosed Date Resolved Date Chronic pain syndrome 03/11/20232022 Moderate malnutrition 01/22/20232022 COPD (chronic obstructive pu lmonary disease) with acute bronchitis (HCC) 02/02/2021 03/09/2023 Obesity, Class I, BMI 30-34.9 12/07/2018 03/11/2023 documented as of this encounter (statuses as of 05/18/2023) [facility] History of Past illness Narrative* Problem Noted Date Diagnosed Date Resolved Date Chronic pain syndrome 03/11/20232022 Moderate malnutrition 01/22/20232022 COPD (chronic obstructive pu lmonary disease) with acute bronchitis (HCC) 02/02/2021 03/09/2023 Malignant neoplasm of exocervix 11/07/2019 05/20/2023 Obesity, Class I, BMI 30-34.9 12/07/2018 03/11/2023 documented as of this encounter (statuses as of 05/20/2023) [facility] History of Past illness Narrative* Problem Noted Date Diagnosed Date Resolved Date Chronic pain syndrome 03/11/20232022 Moderate malnutrition 01/22/20232022 COPD (chronic obstructive pu lmonary disease) with acute bronchitis (HCC) 02/02/2021 03/09/2023 Malignant neoplasm of exocervix 11/07/2019 05/20/2023 Obesity, Class I, BMI 30-34.9 12/07/2018 03/11/2023 documented as of this encounter (statuses as of 05/21/2023) [facility] of Past illness Narrative* Problem Noted Date Diagnosed Date Resolved Date Chronic pain syndrome 03/11/20232022 Moderate malnutrition 01/22/20232022 COPD (chronic obstructive pu lmonary disease) with acute bronchitis (HCC) 02/02/2021 03/09/2023 Malignant neoplasm of exocervix 11/07/2019 05/20/2023 Obesity, Class I, BMI 30-34.9 12/07/2018 03/11/2023 documented as of this encounter (statuses as of 05/24/2023) [facility] History of Past illness Narrative* Problem Noted Date Diagnosed Date Resolved Date Chronic pain syndrome 03/11/20232022 Moderate malnutrition 01/22/20232022 COPD (chronic obstructive pu lmonary disease) with acute bronchitis (HCC) 02/02/2021 03/09/2023 Malignant neoplasm of exocervix 11/07/2019 05/20/2023 Obesity, Class I, BMI 30-34.9 12/07/2018 03/11/2023 documented as of this encounter (statuses as of 05/26/2023) [facility] History of Past illness Narrative* Problem Noted Date Diagnosed Date Resolved Date Chronic pain syndrome 03/11/20232022 Moderate malnutrition 01/22/20232022 COPD (chronic obstructive pu lmonary disease) with acute bronchitis (HCC) 02/02/2021 03/09/2023 Malignant neoplasm of exocervix 11/07/2019 3 05/20/2023 Obesity, Class I, BMI 30-34.9 12/07/2018 03/11/2023 documented as of this encounter (statuses as of 05/26/2023) [facility] of Past illness Narrative* Problem Noted Date Diagnosed Date Resolved Date Chronic pain syndrome 03/11/20232022 Moderate malnutrition 01/22/20232022 COPD (chronic obstructive pu lmonary disease) with acute bronchitis (HCC) 02/02/2021 03/09/2023 Malignant neoplasm of exocervix 11/07/2019 05/20/2023 Obesity, Class I, BMI 30-34.9 12/07/2018 03/11/2023 documented as of this encounter (statuses as of 05/27/2023) [facility] History of Past illness Narrative* Problem Noted Date Diagnosed Date Resolved Date Chronic pain syndrome 03/11/20232022 Moderate malnutrition 01/22/20232022 COPD (chronic obstructive pu lmonary disease) with acute bronchitis (HCC) 02/02/2021 03/09/2023 Malignant neoplasm of exocervix 11/07/2019 3 05/20/2023 Obesity, Class I, BMI 30-34.9 12/07/2018 03/11/2023 documented as of this encounter (statuses as of 05/27/2023) [facility] History of Past illness Narrative* Problem Noted Date Diagnosed Date Resolved Date Chronic pain syndrome 03/11/20232022 Moderate malnutrition 01/22/20232022 COPD (chronic obstructive pu lmonary disease) with acute bronchitis (HCC) 02/02/2021 03/09/2023 Malignant neoplasm of exocervix 11/07/2019 3 05/20/2023 Obesity, Class I, BMI 30-34.9 12/07/2018 03/11/2023 documented as of this encounter (statuses as of 06/11/2023) [facility] of Past illness Narrative* Problem Noted Date Diagnosed Date Resolved Date Chronic pain syndrome 03/11/20232022 Moderate malnutrition 01/22/20232022 COPD (chronic obstructive pu lmonary disease) with acute bronchitis (HCC) 02/02/2021 03/09/2023 Malignant neoplasm of exocervix 11/07/2019 05/20/2023 Obesity, Class I, BMI 30-34.9 12/07/2018 03/11/2023 documented as of this encounter (statuses as of 06/24/2023) [facility] History of Past illness Narrative* Problem Noted Date Diagnosed Date Resolved Date Chronic pain syndrome 03/11/20232022 Moderate malnutrition 01/22/20232022 COPD (chronic obstructive pu lmonary disease) with acute bronchitis (HCC) 02/02/2021 03/09/2023 Malignant neoplasm of exocervix 11/07/2019 05/20/2023 Obesity, Class I, BMI 30-34.9 12/07/2018 03/11/2023 documented as of this encounter (statuses as of 06/27/2023) [facility] of Past illness Narrative* Problem Noted Date Diagnosed Date Resolved Date Chronic pain syndrome 03/11/20232022 Moderate malnutrition 01/22/20232022 COPD (chronic obstructive pu lmonary disease) with acute bronchitis (HCC) 02/02/2021 03/09/2023 Malignant neoplasm of exocervix 11/07/2019 05/20/2023 Obesity, Class I, BMI 30-34.9 12/07/2018 03/11/2023 documented as of this encounter (statuses as of 06/27/2023) [facility] History of Past illness Narrative* Problem Noted Date Diagnosed Date Resolved Date Chronic pain syndrome 03/11/20232022 Moderate malnutrition 01/22/20232022 COPD (chronic obstructive pu lmonary disease) with acute bronchitis (HCC) 02/02/2021 03/09/2023 Malignant neoplasm of exocervix 11/07/2019 3 05/20/2023 Obesity, Class I, BMI 30-34.9 12/07/2018 03/11/2023 documented as of this encounter (statuses as of 06/30/2023) [facility] History of Past illness Narrative* Problem Noted Date Diagnosed Date Resolved Date Chronic pain syndrome 03/11/20232022 Moderate malnutrition 01/22/20232022 COPD (chronic obstructive pu lmonary disease) with acute bronchitis (HCC) 02/02/2021 03/09/2023 Malignant neoplasm of exocervix 11/07/2019 05/20/2023 Obesity, Class I, BMI 30-34.9 12/07/2018 03/11/2023 documented as of this encounter (statuses as of 07/05/2023) [facility] History of Past illness Narrative* Problem Noted Date Diagnosed Date Resolved Date Chronic pain syndrome 03/11/20232022 Moderate malnutrition 01/22/20232022 COPD (chronic obstructive pu lmonary disease) with acute bronchitis (HCC) 02/02/2021 03/09/2023 Malignant neoplasm of exocervix 11/07/2019 05/20/2023 Obesity, Class I, BMI 30-34.9 12/07/2018 03/11/2023 documented as of this encounter (statuses as of 07/05/2023) [facility] History of Past illness Narrative* Problem Noted Date Diagnosed Date Resolved Date Chronic pain syndrome 03/11/20232022 Moderate malnutrition 01/22/20232022 COPD (chronic obstructive pu lmonary disease) with acute bronchitis (HCC) 02/02/2021 03/09/2023 Malignant neoplasm of exocervix 11/07/2019 05/20/2023 Obesity, Class I, BMI 30-34.9 12/07/2018 03/11/2023 documented as of this encounter (statuses as of 07/08/2023) [facility]12-19-[facility] Miscellaneous Notes* Telephone Encounter - Toporowski, Maria Alejandra, MA - 03/08/2023 8:34 AM EST Pharmacy verified in [facility] Patient has been identified by name and [...] Maria Alejandra Reno MA [facility] Miscellaneous Notes* Care Coordination - Unknown Case Management - 02/18/2023 4:02 PM EST Patient Choice Patient Name: GONZALO DELUCA Date of : 1955 All Providers Sent Referral Name: [facility] Phone: [phone] Address: [address] [place] [address] * Care Coordination - SATURNINO Garcia - 02/18/2023 2:19 PM EST S/W, follow up Patient discharged to [facility]. Transport set via [facility] at 430p. cigar making supervisor provided with report number. I did visit patient in room to notify of transport at 430p. Patient noted she will inform her daughter. * Care Coordination - Nidia Barahona - 02/18/2023 1:34 PM EST Discharge med list transmitted to [facility] via [facility] per TCC request. 7000 was entered into [facility] for the SNF- Facility is aware. * Care Coordination - SATURNINO Garcia - 02/16/2023 1:48 PM EST S/W, transport Transport sheet placed in patient paper chart for [facility]. * Care Coordination - Jordana Lowe RN - 02/16/2023 11:18 AM EST Images from the original note were not included. Care Management Progress Note Remains in HICU due to lumbar fracture. Bone scan planned for 02/17. Ortho following. [facility] able to accept pt. PAINT PREP TECHNICIAN tasked to initiate insurance auth. Await insurance approval. Insurance approval received. Attending, ortho, RN & CALL OR CONTACT CENTRE COACH notified. Pt to have bone scan tomorrowas [...] 02/15/2023 3:09 PM EST Referral placed to [facility]. Await review and response regarding ability to accept. TCC notified. * Care Coordination - Ping Lazo RN - 02/15/2023 2:44 PM EST Care Managment Initial Assessment Date: 02/15/2023 Patient Name: Gonzalo Deluca : 1955 Patient Information Source of Information: Patient Cognition/Language: WFL - Within Functional Limits Permission given to speak with patient instruments sales representative/caregiver as indicated: Yes (Karishma Deluca dtr [phone]) Confirmation of Payer with patient/family: Yes Payer Name: UHC Medicare : No Confirmation of Primary Care [...] Living Prescription Coverage: Yes [facility]acy Used: [facility] Medication Management: Independent Transportation/Shopping: Independent Transportation Mode: [...] SNF Discharge Planning Actions: Continue to follow, Detention Facility referral indicated [place] of choice: [place] of choice discussed, Choice list provided (emailed to [email or web address]) Patient's Choice Rights and [employer] and Collaborative Relationships Disclosed as Indicated for Post-Acute Care: Yes Interdisciplinary Team Engagement: PT/OT Social Work Referral for: Additional Information: [facility]. PT/OT recommends SNF. Spoke with patient over the phone. Explained role. Lives w/ daughter in two story home. Independentwith adls. Daughter and Son drives. +PCP, +RX cov, +DME, home oxygen. Discussed SNF. Emailed list to [email or web address]. She did inform me she was at [facility] and would be agreeable to go back there. PAINT PREP TECHNICIAN tasked to make referral to [facility]. Did explained will need to confirm bedavailability and obtain insurance authorization. She demonstrates understanding. DCP: SNF, referral to [facility]. Other choices pending. Ping Lazo RN * Home Care - Deanna Romero LPN - 02/14/2023 8:50 AM EST Patient is currently active with [facility]. The patients current certification period will on 03/28/23. The patient is currently receiving PT services through the agency. Ssis Etl Developer to continue to follow. documented in this [facility]12-01-2023 Note* Care Coordination - Unknown Case Management - 02/18/2023 4:02 PM EST Patient Choice Patient Name: GONZALO DELUCA Date of : 1955 All Providers Sent Referral Name: [facility] Phone: [phone] Address: [address] [place] [id number] [place] [id number] Note* Care Coordination - Unknown Case Management - 02/18/2023 4:02 PM EST Patient Choice Patient Name: GONZALO DELUCA Date of : 1955 All Providers Sent Referral Name: [facility] Phone: [phone] Address: [address] [place] [id number] [address] [place] [id number] Note* Care Coordination - SATURNINO Garcia - 02/18/2023 2:19 PM EST S/W, follow up Patient discharged to [facility]. Transport set via [facility] at 430p. cigar making supervisor provided with report number. I did visit patient in room to notify of transport at 430p. Patient noted she will inform her daughter. [place] [id number] Note* Care Coordination - SATURNINO Garcia - 02/18/2023 2:19 PM EST S/W, follow up Patient discharged to [facility]. Transport set via [facility] at 430p. cigar making supervisor provided with report number. I did visit patient in room to notify of transport at 430p. Patient noted she will inform her daughter. [id number]* Care Coordination - Nidia Barahona - 02/18/2023 1:34 PM EST Discharge med list transmitted to [facility] via Careport per TCC request. 7000 was entered into [facility] for the [facility] is aware. [place] [id number] Note* Care Coordination - Nidia Barahona - 02/18/2023 1:34 PM EST Discharge med list transmitted to [facility] via [employer] per TCC request. 7000 was entered into [facility] [employer] [facility] for the [facility] is aware. [id number] Hospital Discharge instructions* Discharge Instr - Activity* [...] Information Primary Emergency Contact: Nacho Delucai Address: [address] [place] [address] [place] [address] [facility] Mobile Relation: Daughter Secondary Emergency Contact: Jace Deluca Mobile Relation: Son Past Surgical History: Past Surgical History: Procedure Laterality Date CYSTOSCOPY 01/12/2017 OFFICE PROCEDURE CYSTOSCOPY 02/11/2017 C&P bladder biopsy EYE SURGERY detached retina 1994 HYSTERECTOMY 11/06/2019 ABDOMINAL RADICAL HYSTERECTOMY WITH BSO AND PELVIC LYMPH; DR. ZIYAD MENENDEZ [facility] OTHER SURGICAL HISTORY Left 12/19/2019 Med Port [...] (Temporal) Resp 16 Ht 1.651 m (5' 5) Wt 61.2 kg (135 lb) SpO2 95% BMI 22.47 kg/m Last documented pain score (0-10 scale): Last Weight: Wt Readings from Last 1 Encounters: 02/14/23 61.2 kg (135 lb) Mental Status: {SHAMA Patient Mental Status:98788} IV Access: SHAMA IV Access: None Nursing Mobility/ADLs: Walking Minimal assistance Transfer Minimal assistance Bathing Minimal assistance Dressing Minimal assistance Toileting Minimal assistance Feeding Independent Sexton Helper Independent Med Delivery no Wound Care Documentation [...] Assessment Score: @READMISSIONRISKDETAILS@ Discharging to Facility/ Agency [facility] Address: [address] [place] [address] Dialysis Facility (if applicable) Name: Address: Dialysis Schedule: Phone: Fax: Hyster Driver/Pizza Chef signature: ICIAN SECTION Prognosis: fair Condition at Discharge: stable Rehab Potential (if transferring to Rehab): good Recommended Labs or Other Treatments After Discharge: cbc and Bmp in 3 days Physician Certification: I certify the above information and transfer of Gonzalo Deluca is necessary for the continuing treatment of the diagnosis listed and that she requires group home facility for less than 30 days. Update Admission H&P: No change in H&P PHYSICIAN SIGNATURE: * Additional Instructions* Earlene Echavarria MD - 02/18/2023 1:11 PM EST BONe scan with compression fracture, and brace given, also shows rib fractures. Follow up with Dr. Frank CBC and BMP in 3 days documented in this [facility]12-01-2023 History of Present illness Narrative* Yesenia Salas RCP - 02/18/2023 11:[address] [facility] Respiratory Care Department Progress Note As [...] from the original note were not included. [id number]: Please page me ([phone]) for patient care issues. [phone]: Please page [facility] Hospitalist for any issues. Subjective: Admit Date: 02/13/2023 PCP: HERMINIA CASE MD Room#: 232-08/232-08 Norma Deluca is a 67 y.o. female who presents with Lumbar compression fracture, closed, initial encounter ([facility]) Interval History: Claims that back pain [...] 2* 7 LIVER PROFILE:No results for input(s): AST, ALT, BILITOT, ALKPHOS, PROT in the last 72 hours. No lab exists for component: LABALBU PT/INR: No results for input(s): PROTIME, INR in the last 72 hours. CARDIAC ENZYMES: No results for input(s): TROPONINI in the last 72 hours. Procalcitonin: No results found for: PROCAL Objective: Vitals: BP 111/67 Pulse 84 Temp 36.4 C (97.5 F) (Temporal) Resp 16 Ht 5' 5 (1.651 m) Wt 135 lb (61.2 kg) [...] was a tentative plan of discharge to group home facility today but discharge was held because [...] Information Primary Emergency Contact: Karishma Deluca Address: [address] [place] [address] [place] [address] [facility] Mobile Relation: Daughter Secondary Emergency Contact: Jace Deluca Mobile Relation: Son Advance Directive: Full Code Discharge planning: TBD Earlene Echavarria MD Division of Hospitalist Medicine Inpatient Medical Services/[facility] * Oseas Lima, PT - 02/17/2023 11:39 AM EST Images from the original note were not included. PHYSICAL THERAPY [facility] Treatment Note Name/MRN: Gonzalo Deluca ([id number]) Date of : 1955 Age: 67 y.o. Room/Bed: 232-08/23208 A Visit #: 2 out of 7 [...] Raw Score (No Stairs) : 15 JH-HLM Goals Patient Stated Goal: Patient states she [...] other than deg changes. LSO ordered from [facility] Can be discharged when medically ready. * Betsey Gresham MD - 02/17/2023 7:02 AM EST H: Recent Labs 02/15/23 0456 HGB 10.6* WBC 5.2 VS: Blood pressure 125/69, pulse 93, temperature 36.6 C (97.9 F), temperature source Temporal, resp. rate 20, height 1.651 m (5' 5), weight 61.2 kg (135 lb), SpO2 95%. Sleeping. Arouses w/ moderate stimulation. States pain controlled, had good day yesterday. Taking perc 5 q6 hrs. PE: [...] (L) 02/15/2023 PLT 163 02/15/2023 * Roopa More, OT - 02/16/2023 1:58 PM EST Images from the original note were not included. OCCUPATIONAL THERAPY [facility] Treatment Note Name/MRN: Gonzalo Deluca ([id number]) Date of : 1955 Age: 67 y.o. [...] from the original note were not included. [phone]: Please page ok ([phone]) for patient care issues. [phone]: Please page [facility] Hospitalist for any issues. Subjective: Admit Date: 02/13/2023 PCP: HERMINIA CASE MD Room#: 232-08/232-08 Norma Deluca is a 67 y.o. female who presents with Lumbar compression fracture, closed, initial encounter ([facility]) Interval History: Claims that back pain [...] PLT 212 163 BMP: Recent Labs 02/13/23211302/15/236 02/16/23 0343 NA 137 138 139 K 3.7 3.2* 3.3* CL 98 104 105 CO2 32* 28 32* BUN 13 15 16 CREATININE 0.50* 0.52 0.58 GLUCOSE 96 91 117* CALCIUM 9.1 8.4 8.3* ANIONGAP 7 6 2* LIVER PROFILE:No results for input(s): AST, ALT, BILITOT, ALKPHOS, PROT in the last 72 hours. No lab exists for component: LABALBU PT/INR: No results for input(s): PROTIME, INR in the last 72 hours. CARDIAC ENZYMES: No results for input(s): TROPONINI in the last 72 hours. Procalcitonin: No results found for: PROCAL Objective: Vitals: BP 121/72 (BP Location: Left arm, Patient Position: Lying) Pulse 88 Temp 36.6 C (97.9 F) (Temporal) Resp 16 Ht 5' 5 (1.651 m) Wt 135 lb (61.2 kg) [...] Extended Emergency Contact Information Primary Emergency Contact: RaudelsumeetbenjiKarishma Address: [address] [place] [address] Dr. [place], [facility] Mobile Relation: Daughter Secondary Emergency Contact: Jace Deluca Mobile Relation: Son Advance Directive: Full Code Discharge planning: TBD Earlene Echavarria MD Division of Hospitalist Medicine Inpatient Medical Services/[facility] * Betsey Gresham MD - 02/16/2023 7:51 AM EST H: Recent Labs 02/15/23 0456 HGB 10.6* WBC 5.2 VS: Blood pressure 121/72, pulse 88, temperature 36.6 C (97.9 F), temperature source Temporal, resp. rate 16, height 1.651 m (5' 5), weight 61.2 kg (135 lb), SpO2 95%. [...] from the original note were not included. [phone]: Please page ok ([phone]) for patient care issues. [phone]: Please page [facility] Hospitalist for any issues. Subjective: Admit Date: 02/13/2023 PCP: HERMINIA CASE MD Room#: 232-08/232-08 Norma Deluca is a 67 y.o. female who presents with Lumbar compression fracture, closed, initial encounter ([facility]) Interval History: Claims that back pain [...] 7 6 LIVER PROFILE:No results for input(s): AST, ALT, BILITOT, ALKPHOS, PROT in the last 72 hours. No lab exists for component: LABALBU PT/INR: No results for input(s): PROTIME, INR in the last 72 hours. CARDIAC ENZYMES: No results for input(s): TROPONINI in the last 72 hours. Procalcitonin: No results found for: PROCAL Objective: Vitals: BP 138/67 (BP Location: Right arm, Patient Position: Lying) Pulse 82 Temp 36.4 C (97.5 F) (Temporal) Resp 20 Ht 5' 5 (1.651 m) Wt 135 lb (61.2 kg) [...] Information Primary Emergency Contact: Karishma Deluca Address: [address] [place] [address] [place] [address] [facility] Mobile Relation: Daughter Secondary Emergency Contact: Jace Deluca Mobile Relation: Son Advance Directive: Full Code Discharge planning: TBD Earlene Echavarria MD Division of Hospitalist Medicine Inpatient Medical Services/[facility] * Marian Mendosa PT - 02/15/2023 11:13 AM EST Images from the original note were not included. PHYSICAL THERAPY [facility] Treatment Note Name/MRN: Gonzalo Deluca ([id number]) Date of : 1955 Age: 67 y.o. Room/Bed: 232-08/23208 A Visit #: 1 out of 7 [...] resp. rate 18, height 1.651 m (5' 5), weight 61.2 kg (135 lb), SpO2 94%. No overnight issues. Sleeping, arouses easily. Complains of soreness. Mobilized some yesterday. PE: NVI BLE. Lying [...] from the original note were not included. [phone]: Please page me ([phone]) for patient care issues. [phone]: Please page [facility] Hospitalist for any issues. Subjective: Admit Date: 02/13/2023 PCP: HERMINIA CASE MD Room#: 232-08/232-08 Norma Deluca is a 67 y.o. female who presents with Lumbar compression fracture, closed, initial encounter ([facility]) Interval History: No overnight issues. She [...] ANIONGAP 7 LIVER PROFILE:No results for input(s): AST, ALT, BILITOT, ALKPHOS, PROT in the last 72 hours. No lab exists for component: LABALBU PT/INR: No results for input(s): PROTIME, INR in the last 72 hours. CARDIAC ENZYMES: No results for input(s): TROPONINI in the last 72 hours. Procalcitonin: No results found for: PROCAL Objective: Vitals: BP (!) 137/94 Pulse 83 Temp 36.8 C (98.2 F) (Oral) Resp 18 Ht 5' 5 (1.651 m) Wt 135 lb (61.2 kg) [...] since patient refuses MRI Physical therapy recommending group home facility and possible discharge planning to SNF [...] drug monitoring : # Drug name : Genovevanox # Route administered : Subcutaneous # Method of monitoring : Daily Extended Emergency Contact Information Primary Emergency Contact: YosiKarishma Address: [address] [place] [address] [place] [address] [facility] Mobile Relation: Daughter Secondary Emergency Contact: Jace Deluca Mobile Relation: Son Advance Directive: Full Code Discharge planning: TBD Earlene Echavarria MD Division of Hospitalist Medicine Inpatient Medical Services/[facility] * Catalina Rojo OT - 02/14/2023 10:11 AM EST Images from the original note were not included. OCCUPATIONAL THERAPY [facility] Initial Evaluation Name/MRN: Gonzalo Deluca ([id number]) Evaluation Date: 02/14/2023 Date of : 1955 Admission Date: 02/13/2023 6:59 PM Age: 67 y.o. Room/Bed: [facility] A Discharge Recommendation: SNF and Continue to [...] test Allergic rhinitis Arthritis Asthma Bronchitis Cancer ([facility]) ([facility]) skin Cervical cancer ([facility]) ([facility]) Chest pain COPD (chronic obstructive pulmonary disease) ([facility]) USE OXYGEN 3 L AT NIGHT DDD (degenerative disc disease), cervical Defect, retina, with detachment right DJD (degenerative joint disease), lumbar Emphysema lung ([facility]) Former smoker Hematuria SCHEDULED FOR THE PROCEDURE /SURGERY ON 02/11/2017 Hypokalemia Lung nodules Osteoporosis Palpitations Pneumonia Recurrent major depression ([facility]) Sciatica Thoracic compression fracture ([facility]) Vitamin D deficiency Past Surgical History: Past Surgical History: Procedure Laterality Date CYSTOSCOPY 01/12/2017 OFFICE PROCEDURE CYSTOSCOPY 02/11/2017 C&P bladder biopsy EYE SURGERY detached retina 1994 HYSTERECTOMY 11/06/2019 ABDOMINAL RADICAL HYSTERECTOMY WITH BSO AND PELVIC LYMPH; DR. ZIYAD MENENDEZ [facility] OTHER SURGICAL HISTORY Left 12/19/2019 Med Port POWER Regular Size OTHER SURGICAL HISTORY Left 11/07/2022 Percutaneous skeltal fixation femoral fracture TUBAL LIGATION 1992 Admission Diagnosis: Patient Active Problem List Diagnosis Date Noted Lumbar compression fracture, closed, initial encounter ([facility]) 02/13/2023 Nondisplaced fracture of neck of left femur ([facility]) 11/06/2022 Other specified complication of vascular prosthetic devices, implants and grafts, initial encounter([facility]) 08/06/2021 Acute exacerbation of chronic obstructive pulmonary disease ([facility]) 04/12/2018 Poor venous access 12/19/2019 H/O: CVA (cerebrovascular accident) 12/14/2019 Malignant neoplasm of exocervix ([facility]) 11/07/2019 S/P hysterectomy 11/07/2019 PNA (pneumonia) 08/02/2019 Leukocytosis 04/13/2018 Moderate malnutrition ([facility]) ([facility]) 04/13/2018 Shortness of breath 04/13/2018 DDD [...] Responsibilities: Independent Receives Help From: Family Active Content Assistant: No Prior Level of Function ADL Assistance: [...] of Care supervision is transferred to a [facility] Services Occupational Therapist. Goals and/or treatment plan was established in collaboration with patient/family/other representatives. I * Jennifer Esparza, PT - 02/14/2023 8:36 AM EST Images from the original note were not included. PHYSICAL THERAPY [facility] Initial Evaluation Name/MRN: Gonzalo Deluca ([id number]) Evaluation Date: 02/14/2023 Date of : 1955 [...] Allergic rhinitis Arthritis Asthma Bronchitis Cancer (CMS/HCC) ([facility]) skin Cervical cancer (CMS/HCC) ([facility]) Chest pain COPD (chronic obstructive pulmonary disease) ([facility]) USE OXYGEN 3 L AT NIGHT DDD (degenerative disc disease), cervical Defect, retina, with detachment right DJD (degenerative joint disease), lumbar Emphysema lung ([facility]) Former smoker Hematuria SCHEDULED FOR THE PROCEDURE /SURGERY ON 02/11/2017 Hypokalemia Lung nodules Osteoporosis Palpitations Pneumonia Recurrent major depression ([facility]) Sciatica Thoracic compression fracture ([facility]) Vitamin D deficiency Past Surgical History: [...] Noted Lumbar compression fracture, closed, initial encounter ([facility]) 02/13/2023 Nondisplaced fracture of neck of left femur ([facility]) 11/06/2022 Other specified complication of vascular prosthetic devices, implants and grafts, initial encounter([facility]) 08/06/2021 Acute exacerbation of chronic obstructive pulmonary disease ([facility]) 04/12/2018 Poor venous access 12/19/2019 H/O: CVA (cerebrovascular accident) 12/14/2019 Malignant neoplasm of exocervix ([facility]) 11/07/2019 S/P hysterectomy 11/07/2019 PNA (pneumonia) 08/02/2019 Leukocytosis 04/13/2018 Moderate malnutrition (CMS/HCC) ([facility]) 04/13/2018 Shortness of breath 04/13/2018 DDD (degenerative disc disease), cervical 04/12/2018 Recurrent major depression ([facility]) 04/12/2018 Chronic back pain 04/10/2017 COPD (chronic obstructive pulmonary disease) ([facility]) 04/10/2017 Pulmonary nodule 04/10/2017 Sciatica 04/10/2017 [...] Responsibilities: Independent Receives Help From: Family Active Content Assistant: No Prior Level of Function ADL Assistance: [...] 0834 Time Out 0848 Minutes 14 Jennifer Esparza, PT Patient's Physical Therapy Plan of Care supervision is transferred to a [facility] Services Physical Therapist. Goals and/or treatment plan was established in collaboration with patient/family/other representatives. documented in this [facility]11-30-2023 Nurse Note* ARMIN DE OLIVEIRA - 02/17/2023 6:09 PM EST Order for brace faxed to [facility] along with face sheet by Secretary Diaz [place] [id number] Nurse Note* ARMIN DE OLIVEIRA - 02/17/2023 6:09 PM EST Order for brace faxed to [facility] along with face sheet by Secretary Diaz documented in this [facility]11-29-2023 Note* Care Coordination - SATURNINO Garcia - 02/16/2023 1:48 PM EST S/W, transport Transport sheet placed in patient paper chart for [facility] SN[facility]. [id number] Note* Care Coordination - SATURNINO Garcia - 02/16/2023 1:48 PM EST S/W, transport Transport sheet placed in patient paper chart for [facility] SN[facility]. [id number] Note* Care Coordination - Jordana Lowe RN - 02/16/2023 11:18 AM EST Images from the original note were not included. Care Management Progress Note Remains in HICU due to lumbar fracture. Bone scan planned for 02/17. Ortho following. [facility] able to accept pt. [facility] tasked to initiate insurance auth. Await insurance approval. Insurance approval received. Attending, faustina, RN & CALL OR CONTACT CENTRE COACH notified. Pt to have bone scan tomorrowas [...] Stay (Days): 3 GMLOS: No GMLOS Documented [facility]11-29-2023 Note* Care Coordination - Jordana Lowe RN - 02/16/2023 11:18 AM EST Images from the original note were not included. Care Management Progress Note Remains in HICU due to lumbar fracture. Bone scan planned for 02/17. Ortho following. [facility] able to accept pt. [facility] tasked to initiate insurance auth. Await insurance approval. Insurance approval received. Attending, faustina, RN & CALL OR CONTACT CENTRE COACH notified. Pt to have bone scan tomorrowas [...] Stay (Days): 3 GMLOS: No GMLOS Documented [place] [id number] Note* Care Coordination - Nidia Barahona - 02/15/2023 3:09 PM EST Referral placed to [facility] via Careport per TCC request. Await review and response regarding ability to accept. TCC notified. [facility]11-28-2023 Note* Care Coordination - Nidia Barahona - 02/15/2023 3:09 PM EST Referral placed to [facility] via Careport per TCC request. Await review and response regarding ability to accept. TCC notified. [address]28-2023 Note* Care Coordination - Ping Lazo RN - 02/15/2023 2:44 PM EST Care Managment Initial Assessment Date: 02/15/2023 Patient Name: Gonzalo Deluca : 1955 Patient Information Source of Information: Patient Cognition/Language: WFL - Within Functional Limits Permission given to speak with patient instruments sales representative/caregiver as indicated: Yes (Karishma Deluca dtr [phone]) Confirmation of Payer with patient/family: Yes Payer Name: [facility] Medicare [place]: No Confirmation of Primary Care Physician: Confirmed PCP Name: Herminia Christine Evie Seen in last 2 years?: Yes Primary [...] Living Prescription Coverage: Yes [facility]acy Used: [facility] Medication Management: Independent Transportation/Shopping: Independent Transportation Mode: [...] SNF Discharge Planning Actions: Continue to follow, Detention Facility referral indicated [place] of choice: [place] of choice discussed, Choice list provided (emailed to [email or web address]) Patient's Choice Rights and [employer] and Collaborative Relationships Disclosed as Indicated for Post-Acute Care: Yes Interdisciplinary Team Engagement: PT/OT Social Work Referral for: Additional Information: [facility]bar [facility]. PT/OT recommends SNF. Spoke with patient over the phone. Explained role. Lives w/ daughter in two story home. Independentwith adls. Daughter and Son drives. +PCP, +RX cov, +DME, home oxygen. Discussed SNF. Emailed list to [email or web address]. She did inform me she was at [facility] and would be agreeable to go back there. PAINT PREP TECHNICIAN tasked to make referral to [facility]. Did explained will need to confirm bedavailability and obtain insurance authorization. She demonstrates understanding. DCP: SNF, referral to [facility]. Other choices pending. Ping Lazo RN [facility] [id number] Note* Care Coordination - Ping Lazo RN - 02/15/2023 2:44 PM EST Care Managment Initial Assessment Date: 02/15/2023 Patient Name: Gonzalo Deluca : 1955 Patient Information Source of Information: Patient Cognition/Language: WFL - Within Functional Limits Permission given to speak with patient instruments sales representative/caregiver as indicated: Yes (Karishma Deluca dtr [phone]) Confirmation of Payer with patient/family: Yes Payer Name: [facility] Medicare : No Confirmation of Primary Care [...] Living Prescription Coverage: Yes [facility] Used: [facility] Medication Management: Independent Transportation/Shopping: Independent Transportation Mode: [...] SNF Discharge Planning Actions: Continue to follow, Detention Facility referral indicated [place] of choice: [place] of choice discussed, Choice list provided (emailed to [email or web address]) Patient's Choice Rights and [employer] and Collaborative Relationships Disclosed as Indicated for Post-Acute Care: Yes Interdisciplinary Team Engagement: PT/OT Social Work Referral for: Additional Information: [facility] Lumbar [facility]. PT/OT recommends SNF. Spoke with patient over the phone. Explained role. Lives w/ daughter in two story home. Independentwith adls. Daughter and Son drives. +PCP, +RX cov, +DME, home oxygen. Discussed SNF. Emailed list to [email or web address]. She did inform me she was at [facility] and would be agreeable to go back there. PAINT PREP TECHNICIAN tasked to make referral to [facility]. Did explained will need to confirm bedavailability and obtain insurance authorization. She demonstrates understanding. DCP: SNF, referral to [facility]. Other choices pending. Ping Lazo RN [id number] Emergency department Note* Joaquina Guevara RN - 02/14/2023 9:20 AM EST Report called to Jameson WHITEHEAD at this time. Joaquina Guevara RN 02/14/23919 [id number] Emergency department Note* Joaquina Guevara RN - [...] Chest pain COPD (chronic obstructive pulmonary disease) ([facility]) USE OXYGEN 3 L AT NIGHT DDD (degenerative disc disease), cervical Defect, retina, with detachment right DJD (degenerative joint disease), lumbar Emphysema lung (HCC) Former smoker Hematuria SCHEDULED FOR THE PROCEDURE /SURGERY ON 02/11/2017 Hypokalemia Lung nodules Osteoporosis Palpitations Pneumonia Recurrent major depression (HCC) Sciatica Thoracic compression fracture ([facility]) Vitamin D deficiency SURGICAL HISTORY Past Surgical History: Procedure Laterality Date CYSTOSCOPY 01/12/2017 OFFICE PROCEDURE CYSTOSCOPY 02/11/2017 C&P bladder biopsy EYE SURGERY detached retina 1994 HYSTERECTOMY 11/06/2019 ABDOMINAL RADICAL HYSTERECTOMY WITH BSO AND PELVIC LYMPH; DR. ZIYAD IFSH OTHER SURGICAL HISTORY Left 12/19/2019 Med Port [...] kg (135 lb) Height: 1.651 m (5' 5) Medications acetaminophen (Tylenol) tablet 1,000 mg (has [...] disposition. ED Course as of 02/17/23 08 [place] Feb 13, [id number] XR shoulder 2+ views [...] are requesting placement back in rehab versus group home facility. They states they are concerned about [...] 1. Lumbar compression fracture, closed, initial encounter ([facility]) 2. Fall, initial encounter 3. Multiple falls [...] of arrival: Comments: Jean Harvey RN 02/13/23 511 * Nancy Salas RN - 02/13/2023 6:59 PM EST Bed: 16 Expected date: Expected time: Means of arrival: Comments: Room 2 Nancy Salas RN 02/13/232203 documented in this [facility]11-27-2023 Note* Home Care - Deanna Romero LPN - 02/14/2023 8:50 AM EST Patient is currently active with [facility]. The patients current certification period will on 03/28/23. The patient is currently receiving PT services through the agency. Ssis Etl Developer to continue to follow. [facility] [id number] Note* Home Care - Deanna Romero LPN - 02/14/2023 8:50 AM EST Patient is currently active with [facility]. The patients current certification period will on 03/28/23. The patient is currently receiving PT services through the agency. Ssis Etl Developer to continue to follow. [facility] [id number] Emergency department Note* Joaquina Guevara RN - 02/14/2023 8:27 AM EST Attempted Nurse to nurse via telephone at this time, Peter states they will call back. Joaquina Guevara RN 02/14/23 0828 [facility] [id number] Consult note* Betsey Gresham MD - 02/14/2023 [...] Allergic rhinitis Arthritis Asthma Bronchitis Cancer (CMS/HCC) ([facility]) skin Cervical cancer (CMS/HCC) ([facility]) Chest pain COPD (chronic obstructive pulmonary disease) ([facility]) USE OXYGEN 3 L AT NIGHT DDD (degenerative disc disease), cervical Defect, retina, with detachment right DJD (degenerative joint disease), lumbar Emphysema lung ([facility]) Former smoker Hematuria SCHEDULED FOR THE PROCEDURE /SURGERY ON 02/11/2017 Hypokalemia Lung nodules Osteoporosis Palpitations Pneumonia Recurrent major depression ([facility]) Sciatica Thoracic compression fracture ([facility]) Vitamin D deficiency Past Surgical History Past Surgical History: Procedure Laterality Date CYSTOSCOPY 01/12/2017 OFFICE PROCEDURE CYSTOSCOPY 02/11/2017 C&P bladder biopsy EYE SURGERY detached retina 1994 HYSTERECTOMY 11/06/2019 ABDOMINAL RADICAL HYSTERECTOMY WITH BSO AND PELVIC LYMPH; DR. ZIYAD MENENDEZ [facility] OTHER SURGICAL HISTORY Left 12/19/2019 Med Port [...] (Oral) Resp 18 Ht 1.651 m (5' 5) Wt 61.2 kg (135 lb) SpO2 95% [...] 0.50* GLUCOSE 96 PT/INR:No results for input(s): PROTIME, INR in the last 72 hours. APTT:No results for input(s): APTT in the last 72 hours. LIVER PROFILE:No results for input(s): AST, ALT, BILIDIR, BILITOT, ALKPHOS in the last 72hours. Imaging/Diagnostics Reviewed x-rays [...] the consult we will follow with you. [facility]11-27-2023 Consult note* Betsey Gresham MD - [facility]14[facility]23 7[facility] consult to orthopaedic surgery-- Inpatient [...] Allergic rhinitis Arthritis Asthma Bronchitis Cancer (CMS/HCC) ([facility]) skin Cervical cancer (CMS/HCC) ([facility]) Chest pain COPD (chronic obstructive pulmonary disease) ([facility]) USE OXYGEN 3 L AT NIGHT DDD (degenerative disc disease), cervical Defect, retina, with detachment right DJD (degenerative joint disease), lumbar Emphysema lung (HCC) Former smoker Hematuria SCHEDULED FOR THE PROCEDURE /SURGERY ON 02/11/2017 Hypokalemia Lung nodules Osteoporosis Palpitations Pneumonia Recurrent major depression ([facility]) Sciatica Thoracic compression fracture ([facility]) Vitamin D deficiency Past Surgical History [...] (Oral) Resp 18 Ht 1.651 m (5' 5) Wt 61.2 kg (135 lb) SpO2 95% [...] 0.50* GLUCOSE 96 PT/INR:No results for input(s): PROTIME, INR in the last 72 hours. APTT:No results for input(s): APTT in the last 72 hours. LIVER PROFILE:No results for input(s): AST, ALT, BILIDIR, BILITOT, ALKPHOS in the last 72hours. Imaging/Diagnostics Reviewed x-rays [...] will follow with you. documented in this [facility]11-26-2023 History and physical note* Lauren Serna MD - 02/13/2023 11:12 PM EST Images from the original note were not included. History and Physical [facility] Gonzalo Deluca : 1955 AGE 67 y.o. [...] Allergic rhinitis Arthritis Asthma Bronchitis Cancer (CMS/HCC) ([facility]) skin Cervical cancer (CMS/HCC) ([facility]) Chest pain COPD (chronic obstructive pulmonary disease) ([facility]) USE OXYGEN 3 L AT NIGHT DDD (degenerative disc disease), cervical Defect, retina, with detachment right DJD (degenerative joint disease), lumbar Emphysema lung ([facility]) Former smoker Hematuria SCHEDULED FOR THE PROCEDURE /SURGERY ON 02/11/2017 Hypokalemia Lung nodules Osteoporosis Palpitations Pneumonia Recurrent major depression ([facility]) Sciatica Thoracic compression fracture ([facility]) Vitamin D deficiency She is on [...] (98.2 F) (Oral) Resp 16 Ht 5' 5 (1.651 m) Wt 135 lb (61.2 kg) SpO2 98% BMI 22.47 kg/m Pulse Ox: [id number]: 98 % Min: 98 % Max: 98 [...] QT Interval 395 QTC Interval 473 P Woodland 69 QRS Woodland -35 T Wave Woodland -12 LA Interval 152 Impression Sinus rhythm Inferior infarct, old Electronically Signed On 11-07-2022 1:11:05 EDT by Melva Hull Assessment/Plan and Medical Decision Making Fall with back and shoulder pain Lumbar xray L2-L4 levels, mild and new in the L2 and L4 levels and moderate in the L3 level, She is having pain in her lumbar [...] x-ray left shoulder is negative for fracture [facility] has seen her in the past seeing her steward/stewardess third for the For now I will continue [...] to due risk bleed/procedure 02/13/2023 Gonzalo Deluca [id number] Any scheduled follow up appointments Future Appointments Date Time Provider Department Center 03/09/2023 11:15 AM Freddy Person MD [facility] None 04/22/2023 1:00 PM Sally Rocha APRN - [facility] None Extended Emergency Contact Information Primary Emergency Contact: Karishma Deluca Address: [address] [place] [address] Mobile Relation: Daughter Secondary Emergency Contact: YosiJace Mobile Relation: Son Portions of this note may be electronically transcribed. Please forward a copy of this H&P to the primary care physician. [place]ua Phone: [phone] 497-487511-26-2023 History and physical note* Lauren Serna MD - 02/13/2023 11:12 PM EST Images from the original note were not included. History and Physical [facility] Gonzalo Deluca : 1955 AGE 67 y.o. YEARS Note Date 02/13/2023 Primary Care Physician:HERMINIA CASE MD Current Providers as of 02/13/2023 PCP: Hreminia Case MD Care Team Provider: Ziyad Menendez MD Care Team Provider: DB Durham CNP Care Team Provider: DB Kohli CNP Referring Provider: not found, starting on TueFeb 13, 2023 12:00 AM Admitting Provider: Lauren Serna MD, (Active) Attending Provider: Lornezo Orozco MD, starting on TueFeb 13, 2023 [...] Chest pain COPD (chronic obstructive pulmonary disease) ([facility]) USE OXYGEN 3 L AT NIGHT DDD (degenerative disc disease), cervical Defect, retina, with detachment right DJD (degenerative joint disease), lumbar Emphysema lung ([facility]) Former smoker Hematuria SCHEDULED FOR THE PROCEDURE /SURGERY ON 02/11/2017 Hypokalemia Lung nodules Osteoporosis Palpitations Pneumonia Recurrent major depression ([facility]) Sciatica Thoracic compression fracture ([facility]) Vitamin D deficiency She is on 3 liters of oxygen all the time Past Surgical History: Procedure Laterality Date CYSTOSCOPY 01/12/2017 OFFICE PROCEDURE CYSTOSCOPY 02/11/2017 C&P bladder biopsy EYE SURGERY detached retina 1994 HYSTERECTOMY 11/06/2019 ABDOMINAL RADICAL HYSTERECTOMY WITH BSO AND PELVIC LYMPH; DR. ZIYAD MENENDEZ [facility] OTHER SURGICAL HISTORY Left 12/19/2019 Med [...] (98.2 F) (Oral) Resp 16 Ht 5' 5 (1.651 m) Wt 135 lb (61.2 kg) SpO2 98% BMI 22.47 kg/m Pulse Ox: [id number]: 98 % Min: 98 % Max: 98 [...] QT Interval 395 QTC Interval 473 P Woodland 69 QRS Woodland -35 T Wave Woodland -12 LA Interval 152 Impression Sinus rhythm Inferior infarct, old Electronically Signed On 11-07-2022 1:11:05 EDT by Melva Hull Assessment/Plan and Medical Decision Making Fall with back and shoulder pain Lumbar xray L2-L4 levels, mild and new in the L2 and L4 levels and moderate in the L3 level, She is having pain in her lumbar [...] x-ray left shoulder is negative for fracture [facility] has seen her in the past seeing her steward/stewardess third for the For now I will continue [...] to due risk bleed/procedure 02/13/2023 Gonzalo Deluca [id number] Any scheduled follow up appointments Future Appointments Date Time Provider Department Center 03/09/2023 11:15 AM Freddy Person MD [facility] None 04/22/2023 1:00 PM Sally Rocha APRN - [place] [facility] [facility] None Extended Emergency Contact Information Primary Emergency Contact: Karishma Deluca Address: [address] [place] [address] [place] [address] [place] Mobile Relation: Daughter Secondary Emergency Contact: Jace Deluca Mobile Relation: Son Portions of this note may be electronically transcribed. Please forward a copy of this H&P to the primary care physician. documented in this [facility]11-26-2023 Emergency department Note* Anahi Harvey RN - 02/13/2023 6:59 PM EST Bed: 02 Expected date: Expected time: Means of arrival: Comments: Jean Harvey RN 02/13/23 [address] [id number] Emergency department Note* Nancy Salas RN - 02/13/2023 6:59 PM EST Bed: 16 Expected date: Expected time: Means of arrival: Comments: Room 2 Nancy Salas RN 02/13/232[address] [place] [id number] Emergency department Triage note* VERA Harper - 02/13/2023 6:59 PM EST Complaint of fall today injuring lower back and left shoulder. [id number] Physician Emergency department Note* Lorenzo Orozco MD [...] test Allergic rhinitis Arthritis Asthma Bronchitis Cancer ([facility]) ([facility]) skin Cervical cancer ([facility]) ([facility]) Chest pain COPD (chronic obstructive pulmonary disease) ([facility]) USE OXYGEN 3 L AT NIGHT DDD (degenerative disc disease), cervical Defect, retina, with detachment right DJD (degenerative joint disease), lumbar Emphysema lung ([facility]) Former smoker Hematuria SCHEDULED FOR THE PROCEDURE /SURGERY ON 02/11/2017 Hypokalemia Lung nodules Osteoporosis Palpitations Pneumonia Recurrent major depression ([facility]) Sciatica Thoracic compression fracture ([facility]) Vitamin D deficiency SURGICAL HISTORY Past [...] kg (135 lb) Height: 1.651 m (5' 5) Medications acetaminophen (Tylenol) tablet 1,000 mg (has [...] are requesting placement back in rehab versus group home facility. They states they are concerned about [...] 1. Lumbar compression fracture, closed, initial encounter ([facility]) 2. Fall, initial encounter 3. Multiple falls [...] Medicine Provider Lorenzo Orozco MD 02/17/23 0849 [id number] Miscellaneous Notes* Telephone Encounter - Whit Shay LPN - 02/08/2023 9:57 AM EST Request completed and faxed. * Telephone Encounter - Herminia Case MD - 02/08/2023 9:48 AM EST Done. * Telephone Encounter - Whit Shay LPN - 02/07/2023 2:59 PM EST Type of letter/form/fax request - Home Health Care Orders Plan of Care Certification Period- 01/28/23 to 03/28/23 Form received from [facility] on 02/04/23 floor and placed on desk () for completion. Completed form needs to be faxed to [phone]. Route to PA when form completed for processing documented in this [facility]Mer[facility]11-[facility]-2023 Miscellaneous Notes* Telephone Encounter - Tate Weathers MA - 02/07/2023 2:00 PM EST Last appointment: 01/14/23 Next appointment: 03/11/23 Pharmacy verified in Epic. Refill(s) requested: Requested Prescriptions Pending Prescriptions Disp Refills QUEtiapine (SEROQUEL) 100 mg tablet [Pharmacy Med Name: QUETIAPINE FUMARATE 100 MG TAB] 180 tablet 1 Sig: TAKE 2 TABLETS BY MOUTH AT BEDTIME NEEDED Order(s) pended. Please advise. Tate Weathers MA, [facility] documented in this encounterMercy [facility]11-14-2023 History of Present illness Narrative* Agustina Romero MA - 02/01/2023 11:01 AM EST POPULATION HEALTH NAVIGATION OUTREACH Action/FYI Called and left a message to call [phone], to discuss health maintenance items that are due. Sent My Chart message. Patient Identified by Name and : NO Outreach Outcome/Action Unable to reach patient: Left message BrandBeauhart message sent Did you use a PCP flex slot to schedule this appointment? N/A Reason for Outreach Care Gap or Scheduling/Wellness visits Payer: Payor: [facility] MEDICARE / Plan: [facility] DUAL COMPLETE HMO POS SNP / Product [...] 01, 2023 11:02 AM documented in this encounterMercy [facility]11-14-2023 Miscellaneous Notes* Telephone Encounter - Whit Shay LPN - 02/01/2023 9:07 AM EST Request completed and faxed. * Telephone Encounter - Whit Shay LPN - 01/31/2023 3:36 PM EST Type of letter/form/fax request - Home Health Care Orders Form received from [facility] on 01/28/23 floor and placed on MD desk () for completion. Completed form needs to be faxed to [phone]. Route to PA when form completed for processing documented in this encounterMercy [facility]11-09-2023 History of Present illness Narrative* Jo Chen MA - 01/27/2023 12:21 PM EST POPULATION HEALTH NAVIGATION OUTREACH Action/FYI Unable to leave [employer] message sent Mammogram Screening Never done Colorectal Cancer Screening Never done Patient Identified by Name and : NO Outreach Outcome/Action Unable to reach patient: Phone number not valid / voicemail full WindSimt message sent Did you use a PCP flex slot to schedule this appointment? N/A Reason for Outreach Care Gap or Scheduling/Wellness visits Payer: Payor: [facility] MEDICARE / Plan: [facility] DUAL COMPLETE HMO POS SNP / Product [...] 27, 2023 12:21 PM documented in this encounterMercy Health [facility]11-06-2023 Miscellaneous Notes* Telephone Encounter - Whit Shay LPN - 01/24/2023 3:12 PM EST Request completed and faxed. * Telephone Encounter - Herminia Case MD - 01/24/2023 3:06 PM EST Done. * Telephone Encounter - Whit Shay LPN - 01/24/2023 2:42 PM EST Type of letter/form/fax request - Home Health Care Orders Form received from [facility] on 01/21/23 floor and placed on MD desk () for completion. Completed form needs to be faxed to [phone]. Route to [place] when form completed for processing documented in this encounterMercy [facility]11-03-2023 Miscellaneous Notes* Telephone Encounter - Rayo Roman Ma - 01/21/2023 1:45 PM EDT Type of letter/form/fax request - Home Health Care Orders Form received from [facility] on 01/21/23 floor and placed on MD desk () for completion. Completed form needs to be faxed to [phone]. Route to [place] when form completed for processing documented in this encounterMercy Health [facility] Hospital10-30-2023 Miscellaneous Notes* Telephone Encounter - Whit Shay LPN - 01/17/2023 6:06 PM EDT Request completed and faxed. * Telephone Encounter - Whit Shay LPN - 01/17/2023 10:35 AM EDT Type of letter/form/fax request - Home Health Care Orders Form received from [facility] on 01/15/23 floor and placed on desk () for completion. Completed form needs to be faxed to [phone]. Route to [place] when form completed for processing documented in this encounterMercy Health [facility] Hospital10-27-2023 Instructions* Patient Instructions* Herminia Case MD [...] continue 60 mg duloxetine. documented in this encounterMercy Health [facility] Hospital10-27-2023 History of Present illness Narrative* Herminia [...] (97.6 F) (Temporal) Ht 164.1 cm (5' 4.61) Wt 62.1 kg (137 lb) SpO2 93% [...] Vaccine(1) due on 2022 documented in this encounterMercy Health [facility] Hospital10-20-2023 Miscellaneous Notes* Telephone Encounter - Melva Juárez PA-C - 01/07/2023 3:21 PM EDT Noted. Melva Juárez PA-C * Telephone Encounter - Teressa Macario - 01/07/2023 1:21 PM EDT Lake with [facility] calling to update that patient cancelled her appointment today becauseshe is not feeling well. Any questions, please call Lake @ [phone] documented in this encounterMercy Health [facility] Hospital10-18-2023 Miscellaneous Notes* Telephone Encounter - Melva Juárez PA-C - 01/05/2023 5:12 PM EDT Noted. Melva Juárez PA-C * Telephone Encounter - Rayo Roman Ma - 01/05/2023 4:32 PM EDT JANNIE * Telephone Encounter - Teressa Macario - 01/05/2023 12:17 PM EDT Dianne from [facility] calling today to update that patient missed appointment today because she does not feel well. Patient is asking to hold off therapy until Tuesday. documented in this encounterMercy Health [facility] Hospital10-12-2023 Miscellaneous Notes* Telephone Encounter - Whit Shay LPN - 12/30/2022 11:28 AM EDT Request completed and faxed. * Telephone Encounter - Herminia Case MD - 12/30/2022 11:18 AM EDT Done. * Telephone Encounter - Whit Shay LPN - 12/30/2022 9:28 AM EDT Type of letter/form/fax request - Home Health Care Orders Form received from [facility] on 12/29/22 floor and placed on MD desk () for completion. Completed form needs to be faxed to [phone]. Route to [place] when form completed for processing documented in this encounterMercy Health [facility] Hospital10-11-2023 Miscellaneous Notes* Telephone Encounter - Whit Shay LPN - 12/29/2022 8:43 AM EDT Request completed and faxed. * Telephone Encounter - Whit Shay LPN - 12/28/2022 2:00 PM EDT Type of letter/form/fax request - Home Health Care Orders Form received from [facility] on 12/27/22 floor and placed on MD desk () for completion. Completed form needs to be faxed to [phone]. Route to [place] when form completed for processing documented in this [facility]10-09-2023 Miscellaneous Notes* Telephone Encounter - Whit Shay LPN - 12/27/2022 3:41 PM EDT Request completed and faxed. * Telephone Encounter - Whit Shay LPN - 12/22/2022 8:26 AM EDT Type of letter/form/fax request - Home Health Care Orders Form received from [facility] on 12/21/22 floor and placed on MD desk () for completion. Completed form needs to be faxed to [phone]. Route to PA when form completed for processing documented in this encounterMercy Health [facility] Hospital09-28-2023 Miscellaneous Notes* Telephone Encounter - Parul Sanderson OCCA - 12/16/2022 2:11 PM EDT Last appointment: 09/15/22 Next appointment: 01/14/23 Pharmacy verified in [facility]. Refill(s) requested: Requested Prescriptions Pending Prescriptions Disp Refills oxyCODONE-acetaminophen (PERCOCET) 5-325 mg tablet 134 tablet 0 Sig: Take 1 tablet by mouth every 4 hours as needed for pain for up to 30 days. Order(s) pended. Please advise,thank you. Parul GOMES December 16, 2022 2:12 PM documented in this encounterMercy Health [facility] Hospital09-23-2023 Miscellaneous Notes* Telephone Encounter - Whit Shay LPN - 12/11/2022 8:37 AM EDT Home care Certification Form 485 received from [facility]. For cert dates 11/29/22 to 01/27/23 that were signed on 12/07/22. Recertification Patient's home health 485 form / care plan for stated certification period reviewed and signed. Relevant medical records were reviewed. No changes were indicated documented in this encounterMercy Health Anderson Hospital09-22-2023 Miscellaneous Notes* Telephone Encounter - Cayden [...] advise. Cayden Acevedo CMA documented in this encounterMercy Health Anderson Hospital09-21-2023 Miscellaneous Notes* Telephone Encounter - Whit Shay LPN - 12/09/2022 2:57 PM EDT Request completed and faxed. * Telephone Encounter - Herminia Case MD - 12/09/2022 2:49 PM EDT Done. * Telephone Encounter - Whit Shay LPN - 12/09/2022 2:16 PM EDT Type of letter/form/fax request - Home Health Care Orders Form received from [facility] on 12/07/22 floor and placed on desk () for completion. Completed form needs to be faxed to [phone]. Route to PA when form completed for processing documented in this encounterMercy Health Anderson Hospital09-21-2023 History of Present illness Narrative* Silvia Trejo Ma - 12/09/2022 10:45 AM EDT Spoke with patient. Patient states that she will complete it and send it in. documented in this encounterMercy Health Anderson Hospital09-19-2023 Miscellaneous Notes* Telephone Encounter - Whit Shay LPN - 12/07/2022 4:19 PM EDT Request completed and faxed. * Telephone Encounter - Herminia Case MD - 12/07/2022 4:01 PM EDT Done. * Telephone Encounter - Whit Shay LPN - 12/07/2022 8:50 AM EDT Type of letter/form/fax request - Home Health Care Orders Form received from [facility] on 12/03/22 floor and placed on MD desk () for completion. Completed form needs to be faxed to [phone]. Route to PA when form completed for processing documented in this encounterMercy Health [facility] Hospital09-12-2023 Miscellaneous Notes* Telephone Encounter - Whit Shay LPN - 11/30/2022 9:33 AM EDT Called Leola from [facility] and relayed message below. She verbalized understanding. Whit Shay LPN * Telephone Encounter - Herminia Case MD - 11/29/2022 7:19 PM EDT yes * Telephone Encounter - Jessica Castro - 11/29/2022 4:41 PM EDT Leola Villanueva from [facility] is calling to confirm that Dr. Case will follow patient for home health care. Please call back to [phone] documented in this encounterMercy Health Anderson Hospital09-05-2023 Miscellaneous Notes* Telephone Encounter - Simran Prasad Ma - 11/23/2022 7:49 PM EDT Date of last office visit : 09/15/2022 Date of next office visit : 01/14/2023 Pharmacy verified in [facility]. Refill(s) requested: Requested Prescriptions Pending Prescriptions Disp Refills SPIRIVA RESPIMAT 2.5 mcg/actuation inhaler [Pharmacy Med Name: SPIRIVA RESPIMAT 2.5 MCG INH] 3 Sig: INHALE 2 PUFFS BY MOUTH ONCE DAILY DIRECTED Order(s) pended. Please advise. Simran Prasad Ma, ELISEO documented in this encounterMercy Health Anderson Hospital09-01-2023 Miscellaneous Notes* Telephone Encounter - Estee Amor LPN - 2022 4:01 PM EDT Pharmacy verified in [facility] Patient has been identified by name and [...] advise. Estee Amor LPN documented in this encounterMercy Health Anderson Hospital08-31-2023 Miscellaneous Notes* Telephone Encounter - Madison Ceja - 11/18/2022 1:04 PM EDT Patient scheduled for sooner appointment * Telephone Encounter - Herminia Case MD - 11/18/2022 12:50 PM EDT Needs sooner appt for pain med refills. * Telephone Encounter - Parul Sanderson OCCA - 11/17/2022 12:54 PM EDT Last appointment: 09/15/22 Next appointment: 03/17/23 Pharmacy verified in [facility]. Refill(s) requested: Requested Prescriptions Pending Prescriptions Disp Refills oxyCODONE-acetaminophen (PERCOCET) 5-325 mg tablet 134 tablet 0 Sig: Take 1 tablet by mouth every 4 hours as needed for pain for up to 30 days. Order(s) pended. Please advise,thank you. Parul GOMES November 17, 2022 12:55 PM documented in this encounterMercy Health Anderson Hospital08-28-2023 Miscellaneous Notes* Telephone Encounter - Maria Alejandra Reno MA - 11/15/2022 1:29 PM EDT Pharmacy verified in [facility] Patient has been identified by name and [...] Maria Alejandra Reno MA documented in this encounterMercy Health Anderson Hospital08-21-2023 Note* Care Coordination - SATURNINO Garcia - 11/08/2022 2:29 PM EDT S/W, follow up Patient discharged to [facility]. Transport set via [facility] at 430p. cigar making supervisor provided report number. I did visit patient in room to notify. Patient and myself did notify daughter karishma via speaker phone of transport this evening. [facility] [id number] Note* Care Coordination - SATURNINO Garcia - 11/08/2022 2:29 PM EDT S/W, follow up Patient discharged to [facility]. Transport set via [facility] at 430p. cigar making supervisor provided report number. I did visit patient in room to notify. Patient and myself did notify daughter karishma via speaker phone of transport this evening. [facility] [id number] Miscellaneous Notes* Care Coordination - SATURNINO Garcia - 11/08/2022 2:29 PM EDT S/W, follow up Patient discharged to [facility]. Transport set via [facility] at 430p. cigar making supervisor provided report number. I did visit patient in room to notify. Patient and myself did notify daughter karishma via speaker phone of transport this evening. * Care Coordination - Unknown Case Management - 11/08/2022 1:57 PM EDT Patient Choice Patient Name: GONZALO DELUCA Date of : 1955 All Providers Sent Referral Name: [facility] Phone: [phone] Address: [address] [place] [address] * Care Coordination - Phillip Gurrola RN - 11/08/2022 11:20 AM EDT Tasked PAINT PREP TECHNICIAN to submit for auth for [facility]. . * Care Coordination - Phillip Gurrola RN - 11/08/2022 6:59 AM EDT Images from the original note were not included. Care Management Progress Note Awaiting therapy evals and recommendations. Per careport. [facility] is able to accept. Will need insurance [...] Set By Reviewed At 11/08/2022 Austyn Mccann, DO 11/06/2022 4:18 PM 11/08/2022 Austyn Mccann, DO 11/06/2022 3:22 PM Length of Stay (Days): 2 GMLOS: No GMLOS Documented . * Care Plan - Tona Barroso RN - 11/07/2022 9:03 PM EDT The patient is Moderately Stable - Low risk of patient condition declining or worsening The patient's goals for the shift include Pain control and rest. The clinical goals for the shift include Safety * Home Care - Rosa Elena Isaac LPN - 11/07/2022 4:39 PM EDT Ssis Etl Developer following case for Discharge Needs. * Care Coordination - Phillip Gurrola RN - 11/07/2022 4:20 PM EDT Care Managment Initial Assessment Date: 11/07/2022 Patient Name: Gonzalo Deluca : 1955 Patient Information Source of Information: Patient Name/Contact Information: KARISHMA DELUAC [phone] BRENDON DELUCA SON [phone] Cognition/Language: WFL - Within Functional Limits Permission given to speak with patient instruments sales representative/caregiver as indicated: Yes Confirmation of Payer with patient/family: Yes Payer Name: [facility] DUAL COMPLETE : No Confirmation of Primary [...] Daily Living Prescription Coverage: Yes Pharmacy Used: [facility] Medication Management: Prescription pick-up Who assists with [...] Plan Patient expects to be discharged to: INTERMEDIATE FACILITY Discharge Planning Actions: Detention Facility referral indicated [place] of choice: [place] of choice discussed, Choice list provided Patient's [...] states she is planning discharging to a group home facility and would like to go to facility in [place] where her daughter's friend works-[employer] [facility]. Will place referral in careport to determine if bed is available and if [facility] is in network with patient's [facility]. Did instruct patient to choose 3 other facilities in case there is no bed available at [facility]. Will have home care follow peripherally should [...] femoral neck fracture Surgeon: Andres Ventura MD Paint Spray Tender: Jono HARRIS Anesthesia: General Estimate blood loss: [...] The patient's goals for the shift include Pain control and rest. The clinical goals for the shift include Safety documented in this encounterSSelect Medical Specialty Hospital - YoungstownFspptt26-31-8989 Note* Care Coordination - Unknown Case Management - 11/08/2022 1:57 PM EDT Patient Choice Patient Name: GONZALO DELUCA Date of : 1955 All Providers Sent Referral Name: [facility] Phone: [phone] Address: [address] [place], [place] [id number] [place] [id number] Note* Care Coordination - Unknown Case Management - 11/08/2022 1:57 PM EDT Patient Choice Patient Name: GONZALO DELUCA Date of : 1955 All Providers Sent [facility] Phone: [phone] Address: [address] [place], [place] [id number] [address] StreetRimotv95-39-0879 Hospital Discharge instructions* Discharge Instr - SHAMA* [...] (Temporal) Resp 16 Ht 1.626 m (5' 4) Wt 59 kg (130 lb) SpO2 97% [...] Minimal assistance Toileting Minimal assistance Feeding Independent Sexton Helper Minimal assistance Med Delivery no Wound Care [...] Score: @READMISSIONRISKDETAILS@ Discharging to Facility/ Agency Name: [facility] Address:[address] [place] [address] Phone:[phone] Fax: Dialysis Facility (if applicable) Name: Address: Dialysis Schedule: Phone: Fax: Hyster Driver/Pizza Chef signature: ICIAN SECTION Prognosis: excellent Condition at Discharge: stable Rehab Potential (if transferring to Rehab): excellent Recommended Labs or Other Treatments After Discharge: none Physician Certification: I certify the above information and transfer of Gonzalo Deluca is necessary for the continuing treatment of the diagnosis listed and that she requires group home facility for less than 30 days. Update Admission H&P: No change in H&P PHYSICIAN SIGNATURE: documented in this [facility]08-21-2023 Hospital course Narrative* Raul Whipple DO - [...] Disposition: Patient discharged in stable condition to [facility] LABS: CBC: Recent Labs 11/06/22 1455 11/07/22 [...] (97.8 F) (Temporal) Resp 16 Ht 5' 4 (1.626 m) Wt 130 lb (59 kg) [...] nicotine 21 MG/24HR patch Commonly known as: Latisha Step [address] 1 patch on the [...] Complexity: follow up within 7-14 calendar days (14864) [x] Severe Complexity: follow up within 7 calendar days (79392) Follow up Testing, Pending results or Referrals [...] DO Division of Hospitalist Medicine Inpatient Medical Services/[facility] 11/08/2022, 1:31 PM Total time Spent on Discharge: 21 minutes documented in this [facility]08-21-2023 History of Present illness Narrative* Raul Whipple DO - 11/08/2022 1:00 PM EDT Images from the original note were not included. Hospitalist Progress Note 11/08/2022 [phone]: Please page me ([phone]) for patient care issues. [phone]: Please page [facility] Hospitalist for any issues. Subjective: Admit Date: 11/06/2022 PCP: HERMINIA CASE MD Room#: Z8-461/Z9-368 A Interval History: No overnight issues. Denies [...] (97.8 F) (Temporal) Resp 16 Ht 5' 4 (1.626 m) Wt 130 lb (59 kg) [...] Relation: Child Raul Whipple DO [facility] Services/[facility] PAGER: Epic chat * Betsey Gresham MD - 11/08/2022 11:05 AM EDT H: Recent Labs 11/08/22 0156 HGB 10.3* WBC 9.1 VS: Blood pressure 108/63, pulse 87, temperature 36.6 C (97.8 F), temperature source Temporal, resp. rate 16, height 1.626 m (5' 4), weight 59 kg (130 lb), SpO2 97 [...] 11/08/2022 10:19 AM EDT Occupational Therapy Facility/Department: [facility] Occupational Therapy Initial Evaluation NAME: Gonzalo Deluca [...] intertrochanteric fracture of left femur, initial encounter ([facility]). has a past medical history of Abnormal stress test, Allergic rhinitis, Arthritis, Asthma, Bronchitis, Cancer ([facility]/HCC) ([facility]), Cervical cancer ([facility]/HCC) ([facility]), Chest pain, COPD (chronic obstructive pulmonary disease) ([facility]), DDD (degenerative disc disease), cervical, Defect, retina, with detachment, DJD (degenerative joint disease), lumbar, Emphysema lung ([facility]), Former smoker, Hematuria, Hypokalemia, Lung nodules, Osteoporosis, Palpitations, Pneumonia, Recurrent major depression ([facility]), Sciatica, Thoracic compression fracture ([facility]), and Vitamin D deficiency. She has no past medical history of Blood circulation, collateral, Chronic kidney disease, Clotting disorder (CMS/HCC) ([facility]), Disease of blood and blood forming organ, GERD (gastroesophageal reflux disease), Liver disease, Movement disorder, Other disorders of kidney and ureter in diseases classified elsewhere, Seizures ([facility]), or Syncope and collapse. has a [...] Daily Activity Raw Score: 19 ADL Inpatient [facility] G-Code Modifier: CK Goals Encounter Problems Encounter [...] 11/08/2022 9:45 AM EDT Physical Therapy Facility/Department: [facility] Physical Therapy Initial Evaluation NAME: Gonzalo Deluca [...] fixation with Dr. Ventura, is WBAT Exam: [facility] Clinical Presentation: Pt admitted 11/06 with s/p L subcapital femoral fx- underwent 11/07 percutaneous screw fixation with Dr. Ventura, is WBAT. She has PMH as indicated [...] intertrochanteric fracture of left femur, initial encounter ([facility]). has a past medical history of Abnormal stress test, Allergic rhinitis, Arthritis, Asthma, Bronchitis, Cancer (CMS/HCC) ([facility]), Cervical cancer (CMS/HCC) ([facility]), Chest pain, COPD (chronic obstructive pulmonary disease) ([facility]), DDD (degenerative disc disease), cervical, Defect, retina, with detachment, DJD (degenerative joint disease), lumbar, Emphysema lung ([facility]), Former smoker, Hematuria, Hypokalemia, Lung nodules, Osteoporosis, Palpitations, Pneumonia, Recurrent major depression ([facility]), Sciatica, Thoracic compression fracture ([facility]), and Vitamin D deficiency. She has no past medical history of Blood circulation, collateral, Chronic kidney disease, Clotting disorder (CMS/HCC) ([facility]), Disease of blood and blood forming organ, GERD (gastroesophageal reflux disease), Liver disease, Movement disorder, Other disorders of kidney and ureter in diseases classified elsewhere, Seizures ([facility]), or Syncope and collapse. has a [...] Therapy Time Individual Co-treatment Time In 820 (co-eval with OT) Time Out 0833 Minutes 12 Oseas King PT * Josie Isaac - 11/08/2022 8:21 AM EDT Nutrition rescreen complete. Pt assigned a level one for nutrition care. * Raul Whipple, DO - 11/07/2022 12:00 PM EDT Images from the original note were not included. Hospitalist Progress Note 11/07/[phone]: Please page me ([phone]) for patient care issues. [phone]: Please page [facility] night Hospitalist for any issues. Subjective: Admit [...] (97.3 F) (Temporal) Resp 20 Ht 5' 4 (1.626 m) Wt 130 lb (59 kg) [...] DO Division of Hospitalist Medicine Inpatient Medical Services/[facility] PAGER: Epic chat documented in this encounterSSelect Medical Specialty Hospital - YoungstownKzhawr05-81-1980 Note* Care Coordination - Phillip Gurrola RN - 11/08/2022 11:20 AM EDT Tasked PAINT PREP TECHNICIAN to submit for auth for [facility]. . [facility] CenterNrltha18-17-5939 Note* Care Coordination - Phillip Gurrola RN - 11/08/2022 11:20 AM EDT Tasked PAINT PREP TECHNICIAN to submit for auth for [facility]. . [facility] CenterLnbgdw58-56-0144 Nurse Note* Austyn Bee RN - 11/08/2022 10:58 AM EDT Pt. found with vape in bed. When asking pt. about using the vape, pt stated, I have been using this since I've been here Patient educated on no smoking/vaping policy. Vape removed and placed in chart box. Protective services notified. Dr. Whipple notified. See orders. [facility] CenterIddaww33-22-1045 Nurse Note* Austyn Bee RN - 11/08/2022 10:58 AM EDT Pt. found with vape in bed. When asking pt. about using the vape, pt stated, I have been using this since I've been here Patient educated on no smoking/vaping policy. Vape removed and placed in chart box. Protective services notified. Dr. Whipple notified. See orders. documented in this encounterSSelect Medical Specialty Hospital - YoungstownFsjtva23-85-0518 Miscellaneous Notes* Telephone Encounter - Whit Shay LPN - 11/08/2022 8:17 AM EDT Medication is pended. Last visit: 09/15/22 Next visit: 03/17/23 [facility]* Care Coordination - Phillip Gurrola RN - 11/08/2022 6:59 AM EDT Images from the original note were not included. Care Management Progress Note Awaiting therapy evals and recommendations. Per careport. [place] [facility] is able to accept. Will need [...] Set By Reviewed At 11/08/2022 Austyn Mccann, DO 11/06/2022 4:18 PM 11/08/2022 Austyn Mccann, DO 11/06/2022 3:22 PM Length of Stay (Days): 2 GMLOS: No GMLOS Documented . [facility] [id number] Note* Care Coordination - Phillip Gurrola RN - 11/08/2022 6:59 AM EDT Images from the original note were not included. Care Management Progress Note Awaiting therapy evals and recommendations. Per careport. [place] [facility] is able to accept. Will need [...] Set By Reviewed At 11/08/2022 Austyn Mccann, DO 11/06/2022 4:18 PM 11/08/2022 Austyn Mccann, DO 11/06/2022 3:22 PM Length of Stay (Days): 2 GMLOS: No GMLOS Documented . [facility] CenterLyobng30-10-2057 Plan of care note* Care Plan - Tona Barroso RN - 11/07/2022 9:03 PM EDT The patient is Moderately Stable - Low risk of patient condition declining or worsening The patient's goals for the shift include Pain control and rest. The clinical goals for the shift include Safety [id number] Note* Home Care - Rosa Elena Isaac LPN - 11/07/2022 4:39 PM EDT Ssis Etl Developer following case for Discharge Needs. [facility] CenterZyhwtw88-69-8998 Note* Home Care - Rosa Elena Isaac LPN - 11/07/2022 4:39 PM EDT Ssis Etl Developer following case for Discharge Needs. [address]Pkiqqd98-88-3226 Note* Care Coordination - Phillip Gurrola RN - 11/07/2022 4:20 PM EDT Care Managment Initial Assessment Date: 11/07/2022 Patient Name: Gonzalo Deluca : 1955 Patient Information Source of Information: Patient Name/Contact Information: KARISHMA DELUCA [phone] LOWELL AND JACE DELUCA SON [phone] Cognition/Language: WFL - Within Functional Limits Permission given to speak with patient instruments sales representative/caregiver as indicated: Yes Confirmation of Payer with patient/family: Yes Payer Name: [facility] DUAL COMPLETE : No Confirmation of Primary [...] Daily Living Prescription Coverage: Yes Pharmacy Used: [facility] Medication Management: Prescription pick-up Who assists with [...] Plan Patient expects to be discharged to: INTERMEDIATE FACILITY Discharge Planning Actions: Detention Facility referral indicated [place] of choice: [place] of choice discussed, Choice list provided Patient's [...] states she is planning discharging to a group home facility and would like to go to facility in [place] where her daughter's friend works-[facility]. Will place referral in careport to determine if bed is available and if fa cility is in network with patient's [facility]. Did instruct patient to choose 3 other facilities in case there is no bed available at [facility]. Will have home care follow peripherally should therapy recommend home with c. Tentative discharge plan is home with hhc vs snf when medically stable/accepting facility and auth obtained. Phillip Gurrola RN [facility] CenterXlipzs04-62-8815 Note* Care Coordination - Phillip Gurrola RN - 11/07/2022 4:20 PM EDT Care Managment Initial Assessment Date: 11/07/2022 Patient Name: Gonzalo Deluca : 1955 Patient Information Source of Information: Patient Name/Contact Information: KARISHMA DELUCA [phone] LOWELL AND JACE DELUCA SON [phone] Cognition/Language: WFL - Within Functional Limits Permission given to speak with patient instruments sales representative/caregiver as indicated: Yes Confirmation of Payer with patient/family: Yes Payer Name: [facility] DUAL COMPLETE [place]: No Confirmation of Primary Care Physician: Confirmed [...] Daily Living Prescription Coverage: Yes Pharmacy Used: [facility] Medication Management: Prescription pick-up Who assists with [...] Plan Patient expects to be discharged to: INTERMEDIATE FACILITY Discharge Planning Actions: Detention Facility referral indicated [place] of choice: [place] of choice discussed, Choice list provided Patient's [...] states she is planning discharging to a group home facility and would like to go to facility in [place] where her daughter's friend works-[facility]. Will place referral in [facility] to determine if bed is available and if fa cility is in network with patient's [facility]. Did instruct patient to choose 3 other facilities in case there is no bed available at [facility]. Will have home care follow peripherally should therapy recommend home with hhc. Tentative discharge plan is home with hhc vs snf when medically stable/accepting facility and auth obtained. Phillip Gurrola RN [facility] CenterSjdsox34-17-8687 Note* Op Note - Andres Ventura MD - 11/07/2022 8:14 AM EDT Preoperative diagnosis: Left nondisplaced valgus impacted subcapital femoral neck fracture Postoperative diagnosis: Same Procedure: Percutaneous cannulated screw fixation left femoral neck fracture Surgeon: Andres Ventura MD Paint Spray Tender: Jono HARRIS Anesthesia: General Estimate blood loss: [...] taken to recovery in stable condition. T [facility] CenterFzpelm77-30-6695 Note* Op Note - Andres Ventura MD - 11/07/2022 8:14 AM EDT Preoperative diagnosis: Left nondisplaced valgus impacted subcapital femoral neck fracture Postoperative diagnosis: Same Procedure: Percutaneous cannulated screw fixation left femoral neck fracture Surgeon: Andres Ventura MD Paint Spray Tender: Jono HARRIS Anesthesia: General Estimate blood loss: [...] taken to recovery in stable condition. T [facility] CenterBzpdqx77-96-1974 Plan of care note* Care Plan - Tona Barroso RN - 11/06/2022 11:24 PM EDT The patient is Moderately Stable - Low risk of patient condition declining or worsening The patient's goals for the shift include Pain control and rest. The clinical goals for the shift include Safety [facility] CenterBpjeoy65-01-0278 Consult note* Andres Ventura MD - 11/06/2022 [...] the holding area to obtain informed consent. [facility] CenterHrwbts02-79-6277 Consult note* Andres Ventura MD - 11/06/2022 [...] to obtain informed consent. documented in this [facility]08-19-2023 Emergency department Note* Gwen Solorzano RN - 11/06/2022 4:06 PM EDT Spoke with patient about which medications she has taken today, patient states that she take all medications nightly. Change medications to be given nightly. Gwen Solorzano RN 11/06/22 7695 [facility] CenterOsoqna26-82-6945 Emergency department Note* Gwen Solorzano RN - [...] and provided support to daughter Karishma in [facility] , pt arrived via EMS. VERA Kraft [...] Cancer (CMS/HCC) (HCC) skin Cervical cancer (CMS/HCC) ([facility]) Chest pain COPD (chronic obstructive pulmonary disease) ([facility]) USE OXYGEN 3 L AT NIGHT DDD (degenerative disc disease), cervical Defect, retina, with detachment right DJD (degenerative joint disease), lumbar Emphysema lung ([facility]) Former smoker Hematuria SCHEDULED FOR THE PROCEDURE /SURGERY ON 02/11/2017 Hypokalemia Lung nodules Osteoporosis Palpitations Pneumonia Recurrent major depression ([facility]) Sciatica Thoracic compression fracture ([facility]) Vitamin D deficiency SURGICAL HISTORY Past Surgical History: Procedure Laterality Date CYSTOSCOPY 01/12/2017 OFFICE PROCEDURE CYSTOSCOPY 02/11/2017 C&P bladder biopsy EYE SURGERY detached retina 1994 HYSTERECTOMY 11/06/2019 ABDOMINAL RADICAL HYSTERECTOMY WITH BSO AND PELVIC LYMPH; DR. ZIYAD MENENDEZ [facility] OTHER SURGICAL HISTORY Left 12/19/2019 Med Port [...] COPD. I Austyn Mccann DO am the behavioral health clinician of record. PROCEDURES: Unless otherwise noted below, none Procedures FINAL IMPRESSION 1. Closed displaced intertrochanteric fracture of left femur, initial encounter ([facility]) DISPOSITION Admit 11/06/2022 03:22:00 PM PATIENT [...] Verdugo RN 11/06/22 1250 documented in this [place] [address]-19-2023 History and physical note* Raul Whipple, DO - 11/06/2022 3:23 PM EDT Images [...] and Asthma, HLD, anxiety/depression. who presents to [facility] on 11/06/2022 with chief complaint of fall [...] Allergic rhinitis Arthritis Asthma Bronchitis Cancer (CMS/HCC) ([facility]) skin Cervical cancer (CMS/HCC) ([facility]) Chest pain COPD (chronic obstructive pulmonary disease) ([facility]) USE OXYGEN 3 L AT NIGHT DDD (degenerative disc disease), cervical Defect, retina, with detachment right DJD (degenerative joint disease), lumbar Emphysema lung (HCC) Former smoker Hematuria SCHEDULED FOR THE PROCEDURE /SURGERY ON 02/11/2017 Hypokalemia Lung nodules Osteoporosis Palpitations Pneumonia Recurrent major depression ([facility]) Sciatica Thoracic compression fracture ([facility]) Vitamin D deficiency Past Surgical History: [...] H&P to the patient's PCP. Thank you. [facility] CenterCwpfmb07-50-9359 History and physical note* Raul Whipple DO [...] and Asthma, HLD, anxiety/depression. who presents to [facility] on 11/06/2022 with chief complaint of fall [...] test Allergic rhinitis Arthritis Asthma Bronchitis Cancer (CMS/[facility]) ([facility]) skin Cervical cancer (CMS/HCC) ([facility]) Chest pain COPD (chronic obstructive pulmonary disease) ([facility]) USE OXYGEN 3 L AT NIGHT DDD (degenerative disc disease), cervical Defect, retina, with detachment right DJD (degenerative joint disease), lumbar Emphysema lung ([facility]) Former smoker Hematuria SCHEDULED FOR THE PROCEDURE /SURGERY ON 02/11/2017 Hypokalemia Lung nodules Osteoporosis Palpitations Pneumonia Recurrent major depression ([facility]) Sciatica Thoracic compression fracture ([facility]) Vitamin D deficiency Past Surgical History: [...] patient's PCP. Thank you. documented in this [address]19-2023 Emergency department Note* VERA Kraft - 11/06/2022 1:02 PM EDT Guided Karishma back VERA Kraft 11/06/22 1302 [address]Ztspux18-32-8588 Emergency department Note* VERA Kraft - 11/06/2022 12:57 PM EDT Introduced myself as pt liaison and explaiined role and provided support to daughter Karishma in [facility] , pt arrived via EMS. VERA Kraft 11/06/22 1258 [address]Qizkon21-15-3321 Emergency department Note* Shelley Verdugo RN - 11/06/2022 12:49 PM EDT Bed: 04 Expected date: Expected time: Means of arrival: Comments: Jean 67/F Fall with L hip pain Shelley Verdugo RN 11/06/22 1250 [address]Ynxehx21-14-2676 Emergency department Triage note* Gwen Solorzano RN - 11/06/2022 12:49 PM EDT Patient presents to the ED via EMS. Patient had a mechanical fall in her room due to tripped over her feet. Patient denies hitting head. Patient states she has balance issues at baseline and uses assistance to walk. Patient is resting comfortably with family at bedside. [facility] CenterPtnzjq41-93-7337 Physician Emergency department Note* Austyn Mccann DO - 11/06/2022 12:49 PM EDT EMERGENCY DEPARTMENT ENCOUNTER Pt Name: Gonzlao Deluca Birthdate 1955 Date of evaluation: 11/06/2022 [...] Allergic rhinitis Arthritis Asthma Bronchitis Cancer (CMS/HCC) ([facility]) skin Cervical cancer (CMS/HCC) ([facility]) Chest pain COPD (chronic obstructive pulmonary disease) ([facility]) USE OXYGEN 3 L AT NIGHT DDD (degenerative disc disease), cervical Defect, retina, with detachment right DJD (degenerative joint disease), lumbar Emphysema lung ([facility]) Former smoker Hematuria SCHEDULED FOR THE PROCEDURE /SURGERY ON 02/11/2017 Hypokalemia Lung nodules Osteoporosis Palpitations Pneumonia Recurrent major depression ([facility]) Sciatica Thoracic compression fracture ([facility]) Vitamin D deficiency SURGICAL HISTORY Past [...] COPD. I Austyn Mccann DO am the behavioral health clinician of record. PROCEDURES: Unless otherwise noted below, none Procedures FINAL IMPRESSION 1. Closed displaced intertrochanteric fracture of left femur, initial encounter ([facility]) DISPOSITION Admit 11/06/2022 03:22:00 PM PATIENT [...] Medicine Provider Austyn Mccann DO 11/06/22 1523 [facility] CenterTenmhu10-74-7511 Telephone encounter Note* Telephone Encounter - DB Kohli CNP - 10/27/2022 11:01 AM EDT With normal HPV and Pap I left a message encouraged patient to call back with any questions or concerns [facility] Phone: 1(761) 956-160508-09-2023 Miscellaneous Notes* Telephone Encounter - DB Kohli CNP - 10/27/2022 11:01 AM EDT With normal HPV and Pap I left a message encouraged patient to call back with any questions or concerns documented in this encounterSSelect Medical Specialty Hospital - [id number] Miscellaneous Notes* Telephone Encounter - Whit Shay LPN - 10/22/2022 1:01 PM EDT Last appointment: 09/15/22 Next appointment: 03/17/23 Pharmacy verified in [place]. Refill(s) requested: Requested Prescriptions Pending Prescriptions Disp Refills sertraline (ZOLOFT) 100 mg tablet [Pharmacy Med Name: SERTRALINE HCL 100 MG TABLET] 180 tablet 1 Sig: TAKE 2 TABLETS BY MOUTH EVERY DAY Order(s) pended. Please advise. Whit Shay LPN, CMA documented in this encounterMercy Health Anderson Hospital08-03-2023 Miscellaneous Notes* Telephone Encounter - Whit Shay LPN - 10/21/2022 12:55 PM EDT Last appointment: 09/15/22 Next appointment: 03/17/23 Pharmacy verified in [place]. Refill(s) requested: Requested Prescriptions Pending Prescriptions Disp Refills oxyCODONE-acetaminophen (PERCOCET) 5-325 mg tablet 134 tablet 0 Sig: Take 1 tablet by mouth every 4 hours as needed for pain for up to 30 days. Order(s) pended. Please advise. Whit Shay LPN, PAINT PREP TECHNICIAN documented in this encounterMercy Health Anderson Hospital08-02-2023 History of Present illness Narrative* Kisha Pepe APRN - [employer]OE [employer]URNER - 10/20/2022 2:00 PM EDT @LOGOIMAGE@ Chief [...] SOB relatedto COPD, not worsening, on home . Not up-to-date on mammogram, will give order today. Past Medical History: Diagnosis Date Abnormal stress test Allergic rhinitis Arthritis Asthma Bronchitis Cancer (CMS/HCC) ([facility]) skin Cervical cancer (CMS/HCC) ([facility]) Chest pain COPD (chronic obstructive pulmonary disease) ([facility]) USE OXYGEN 3 L AT NIGHT DDD (degenerative disc disease), cervical Defect, retina, with detachment right DJD (degenerative joint disease), lumbar Emphysema lung ([facility]) Former smoker Hematuria SCHEDULED FOR THE PROCEDURE /SURGERY ON 02/11/2017 Hypokalemia Lung nodules Osteoporosis Palpitations Pneumonia Recurrent major depression ([facility]) Sciatica Thoracic compression fracture ([facility]) Vitamin D deficiency Past Surgical History: Procedure Laterality Date CYSTOSCOPY 01/12/2017 OFFICE PROCEDURE CYSTOSCOPY 02/11/2017 C&P bladder biopsy EYE SURGERY detached retina 1994 HYSTERECTOMY 11/06/2019 ABDOMINAL RADICAL HYSTERECTOMY WITH BSO AND PELVIC LYMPH; DR. ZIYAD MENENDEZ [facility] OTHER SURGICAL HISTORY Left 12/19/2019 Med Port [...] recognition. I apologize for minor errors in unified communications engineer which may be present. documented in this [facility]06-28-2023 History of Present illness Narrative* Melva Sandoval PA-C - 09/15/2022 2:46 PM EDT Gonzalo Deluca is a 66 year old female here today for routine follow up. COPD: Lungs feel junky. Increased sob since air quality became poor. +productive cough. Requesting prednisone and antibiotic. Has appt with roustabout supervisor in [place] in September. Declines antitrypsin blood draw. Using [...] C (97.3 F) Ht 165.1 cm (5' 5) Wt 61.1 kg (134 lb 11.2 oz) [...] BONE DENSITY Never done documented in this encounterMercy Health Anderson Hospital05-12-2023 Miscellaneous Notes* Telephone Encounter - Silvia Trejo Ma - 07/30/2022 11:26 AM EDT Pharmacy verified in [facility] Patient has been identified by name and [...] advise. Silvia Trejo Ma documented in this encounterMercy Health Anderson Hospital05-09-2023 Miscellaneous Notes* Telephone Encounter - Whit Shay LPN - 07/27/2022 3:24 PM EDT Last appointment: 06/03/22 Next appointment: 09/03/22 Pharmacy verified in [facility]. Refill(s) requested: Requested Prescriptions Pending Prescriptions Disp Refills cyclobenzaprine (FLEXERIL) 5 mg tablet 30 tablet 2 Sig: Take 1 tablet by mouth twice daily as needed. oxyCODONE-acetaminophen (PERCOCET) 5-325 mg tablet 134 tablet 0 Sig: Take 1 tablet by mouth every 4 hours as needed for pain for up to 30 days. Order(s) pended. Please advise. Whit Shay LPN, CMA documented in this encounterMercy Health Anderson Hospital04-14-2023 Miscellaneous Notes* Telephone Encounter - Melva Sandoval PA-C - 07/02/2022 3:24 PM EDT Noted. Melva Sandoval PA-C * Telephone Encounter - Imelda Hull Pss - 07/02/2022 3:11 PM EDT Laurie HARRISON from [facility] is calling Herminia Case MD today to inform provider as an Patient Update (Cancelled her home OT visit today due to illness )please be advised. Patient was not feeling well. [phone]. Patient has been identified by name and birthdate. Duration of symptoms: N/A Person calling: Laurie HARRISON Call patient at: n/a [phone] (home) [phone] (cell) Was an appointment scheduled: No Closing statement: Results or non-symptom based questions: Thank you for calling [facility], your call will be returned within the next business day. Imelda Hull Pss documented in this encounterMercy Health Anderson Hospital04-13-2023 Miscellaneous Notes* Telephone Encounter - Whit Shay LPN - 07/01/2022 3:25 PM EDT Request completed and faxed. * Telephone Encounter - Herminia Case MD - 07/01/2022 3:00 PM EDT Done. * Telephone Encounter - Whit Shay LPN - 07/01/2022 10:35 AM EDT Type of letter/form/fax request - Home Health Care Orders Form received from [facility] on 06/30/22 floor and placed on MD desk () for completion. Completed form needs to be faxed to [phone]. Route to PA when form completed for processing documented in this encounterMercy Health Anderson Hospital04-12-2023 Miscellaneous Notes* Telephone Encounter - Ruddy Moreno RN - 06/30/2022 7:20 PM EDT Laurie from [facility] informed. Advised to call back with any further concerns or questions. * Telephone Encounter - Melva Sandoval PA-C - 06/30/2022 7:13 PM EDT I am not aware of any concerning interactions. Melva Sandoval PA-C * Telephone Encounter - Ruddy Moreno RN - 06/30/2022 7:07 PM EDT CHRISTY Sullivan [facility]. Their computer program alerted her to possible interaction and they have to call and notify provider with all alerts. There are no concerns or symptoms to report. * Telephone Encounter - Melva Sandoval PA-C - 06/30/2022 7:02 PM EDT I am not aware of any interaction between the two. Can they clarify? Thanks Melva Sandoval PA-C * Telephone Encounter - Kita Christiansen [facility] - 06/30/2022 3:10 PM EDT Gonzalo Deluca, has Laurie /OT with [facility] is calling Herminia Case MD today to advise ofa possible medication interaction, the albuterol sulfate with the cyclobenzaprine. This is noted they are advised to call provider with this information Laurie [phone] (verified) Patient has been identified by name and birthdate. Duration of symptoms: N/A Person calling: CHRISTY Sullivan with [facility] Call patient at: at home [phone] (home) [phone] (cell) Was an appointment scheduled: No Closing statement: Results or non-symptom based questions: Thank you for calling [facility], your call will be returned within the next business day. Kita Christiansen [facility] documented in this encounterMercy Health Anderson Hospital04-04-2023 Miscellaneous Notes* Telephone Encounter - Rocio [...] care. Please fax machine order. Thanks Melva Sandovla PA-C * Telephone Encounter - Whit Carey RN - 06/22/2022 2:46 PM EDT Voicemail received June 22, 2022 1338 Hi there, my name is Rina, I am an occupational therapist with [facility] [employer] [facility]. I am callingabout patient Gonzalo Deluca, date [...] for me I can be reached at [phone]. Thank you Spoke with patient Complaints of sinus pain and pressure with nasal congestion Yellow nasal discharge Productive cough, yellow green phlegm Onset 06/20/22 Reports nebulizer broke a few years ago and asking for replacement order to be sent to Will need aerosol prescription also Patient is [...] : NA Protocols used: Sinus Pain or [id number] documented in this encounterMercy Health Anderson Hospital04-04-2023 Miscellaneous Notes* Telephone Encounter - Bernadette Rubin MA - 06/22/2022 3:55 PM EDT Last appointment: 06/03/22 Next appointment: 09/03/22 Pharmacy verified in [facility]. Refill(s) requested: Requested Prescriptions Pending Prescriptions Disp Refills albuterol (PROVENTIL) 2.5 mg /3 mL (0.083 %) nebulizer solution [Pharmacy Med Name: ALBUTEROL SUL 2.5 MG/3 ML SOLN] 90 mL 1 Sig: INHALE 3 ML VIA NEBULIZER EVERY 4 HOURS NEEDED FOR WHEEZE OR FOR SHORTNESS OF BREATH Order(s) pended. Please advise. Bernadette Rubin MA, [facility] documented in this encounterMercy Health Anderson Hospital04-04-2023 Miscellaneous Notes* Telephone Encounter - Whit Shay LPN - 06/22/2022 1:16 PM EDT Request completed and faxed. * Telephone Encounter - Herminia Case MD - 06/22/2022 12:59 PM EDT Done. * Telephone Encounter - Whit Shay LPN - 06/22/2022 11:38 AM EDT Type of letter/form/fax request - Home Health Care Orders Form received from [facility] on 06/21/22 floor and placed on desk () for completion. Completed form needs to be faxed to [phone]. Route to PA when form completed for processing documented in this encounterMercy Health Anderson Hospital03-27-2023 Miscellaneous Notes* Telephone Encounter - Whit Shay LPN - 06/14/2022 12:32 PM EDT Request completed and faxed. * Telephone Encounter - Herminia Case MD - 06/14/2022 12:18 PM EDT Done. * Telephone Encounter - Whit Shay LPN - 06/14/2022 10:48 AM EDT Type of letter/form/fax request - Home Health Care Orders Form received from [facility] on 06/13/22 floor and placed on MD desk () for completion. Completed form needs to be faxed to [phone]. Route to PA when form completed for processing documented in this encounterMercy Health Anderson Hospital03-16-2023 History of Present illness Narrative* Herminia Case MD - 06/03/2022 3:34 PM EDT VIRTUAL VISIT PROGRESS NOTE This is a virtual visit using [employer] video visit. It required patient-provider interaction for themedical decision making as documented below. Gonzalo Deluca is a 66 year old female seen for follow up. Admitted 05/21-05/24 at [facility] none Fell on 05/21 Missed a step [...] no rash noted RESPIRATORY: breathing non-labored ASSESSMENT: (S42.224D) Other closed nondisplaced fracture of proximal end [...] visit. Herminia Case MD documented in this encounterMercy Health Anderson Hospital03-14-2023 Miscellaneous Notes* Telephone Encounter - Whit Shay LPN - 06/01/2022 10:42 AM EDT Request completed and faxed. * Telephone Encounter - Herminia Case MD - 06/01/2022 9:53 AM EDT Done. * Telephone Encounter - Whit Shay LPN - 06/01/2022 9:28 AM EDT Type of letter/form/fax request - Home Health Care Orders Form received from [facility] on 05/28/22 floor and placed on MD desk () for completion. Completed form needs to be faxed to [phone]. Route to PA when form completed for processing documented in this encounterMercy Health Anderson Hospital03-13-2023 Miscellaneous Notes* Telephone Encounter - Herminia Case MD - 05/31/2022 8:22 PM EDT Noted. * Telephone Encounter - Jessica Jay - 05/31/2022 4:09 PM EDT Rina is an occupational therapist for [facility] health care and is calling to let Dr. Case know that the patient cancelled her occupational therapy visit last and has put the therapist off until Tuesday (although she has not set up a time yet). Patient's occupational therapy is delayed. Rina [phone] documented in this encounterMercy Health Anderson Hospital03-06-2023 Note* Care Coordination - Janet Jean [...] HHC. TCC to assist and followas needed. [facility]03-06-2023 Note* Care Coordination - Janet Jean [...] HHC. TCC to assist and followas needed. [phone] Miscellaneous Notes* Care Coordination - Janet Jean [...] : 1955 All Providers Sent Referral Name: [facility] Phone: [phone] Address: [address] [place] [address] * Home Care - Mahsa Castro RN - 05/23/2022 2:03 PM EST Start PACC Note Home Health Referral Educated patient on Home Care and services available. Patient offered choice of available HHC and agreeable to PT/OT services with [facility]. Care Types: [...] is noted as yes - consider a SWEAT BAND SEWER evaluation once the patient returns home. START PATIENT REGISTRATION INFORMATION Order Information Order Signing Physician: Teresa Cedillo MD Service Ordered RN ?: No Service Ordered PT ?: Yes Service Ordered OT ?: Yes Service Ordered ST ?: No Service Ordered SWEAT BAND SEWER?:No Service Ordered SENIOR MECHANICAL DESIGN ENGINEER?: No Following Physician: HERMINIA CASE MD Following Physician Overseeing Physician: HERMINIA CASE MD (Required for Residents only) Agreeable to Follow? Office closed Date/Time of Call 05/23/22 2:04 PM Care Coordination SOC Call from [facility] Required?: No Same Day SOC?: No Primary Care Physician: HERMINIA CASE MD Primary Care Physician Primary Care Physician [address]: [address] [place], [place] [id number] Visit Instructions: N/A Service Discharge Location Type: Home with Home Health Care Service Facility Name: N/A Service Floor Facility: N/A Service Room No: N/A Demographics Patient Last Name: Yosi Patient First Name: Gonzalo Language/Communication Barrier: n/a Service Address: [address] Service City: [facility] ST: [place] Service ZIP: [address] Service (home) Other phone numbers: Telephone Information: Emergency Contact: Extended Emergency Contact Information Primary Emergency Contact: Karishma Deluca Relation: Child Secondary Emergency Contact: Jace Deluca Relation: Child Admission Information Admit Date: 05/21/2022 Patient status at discharge: Observation Caregiver Information Caregiver First Name: Karishma Caregiver Last Name: Yosi Caregiver Relationship to Patient dtr Caregiver Caregiver Notes: N/A [employer] List No END PATIENT REGISTRATION INFORMATION [...] side Discharge Date: 05/23/22 Referral Source-PACC: (Hospital/Unit): [facility] / B1-147/B1-147 B End PACC Note * Care Coordination - Phillip Gurrola RN - 05/22/2022 4:48 PM EST Care Managment Initial Assessment Date: 05/22/2022 Patient Name: Gonzalo Deluca : 1955 Patient Information Source of Information: Patient Name/Contact Information: KARISHMA DELUCA [phone] DAUGHTER Cognition/Language: WFL - Within Functional Limits Permission given to speak with patient instruments sales representative/caregiver as indicated: Yes Confirmation of Payer with patient/family: Yes Payer Name: [facility] DUAL COMPLETE [place]: No Confirmation of Primary Care Physician: Confirmed [...] Daily Living Prescription Coverage: Yes Pharmacy Used: [facility] Medication Management: Prescription pick-up Who assists with [...] expects to be discharged to: HOME WITH [facility] Discharge Planning Actions: Continue to follow Patient's Choice Rights and [employer] and Collaborative Relationships Disclosed as Indicated for Post-Acute Care: NA Interdisciplinary Team Engagement: Home Health Care, PT/OT Social Work Referral for: Additional Information: Admitted from home following a fall. Sustained right shoulder and elbow fracture. Admitted to [facility] ortho consulted, has sling in place to right arm. Pt/ot and pain control. Discharge preparation checklist reviewed with patient. Has prescription coverage and able to afford medications. Reviewed therapy evals and recommendations of snf with patient and she is electing to discharge to [facility]. engagement liaison updated via [facility]. Patient states lives at home with her daughter, prem's boyfriend, and her 6 year granddaughter. States her daughter plans on taking FMLA and staying with her while she recovers. Patient does wear oxygen at 2.5 liters at home cont. Denies anticipating any additional needs upon discharge. Discharge plan home [facility] when medically stable. Anticipate probable discharge [...] to a safe level of function 05/22/2022 155 by Nicole Swift RN Outcome: Progressing 05/22/2022 1558 by Nicole Swift RN Outcome: Progressing Problem: Pain Goal: My pain/discomfort is manageable 05/22/2022 155 by Nicole Swift RN Outcome: Progressing 05/22/2022 1558 by Nicole Swift RN Outcome: Progressing Problem: Safety Goal: Patient will be injury free during hospitalization 05/22/2022 155 by Nicole Swift RN Outcome: Progressing 05/22/2022 1558 by Nicole Swift RN Outcome: Progressing Goal: I will remain free of falls 05/22/2022 155 by Nicole Swift RN Outcome: [...] of falls Outcome: Progressing documented in this [facility]03-06-2023 Hospital course Narrative* Teresa Cedillo MD - [...] SNF but patient declined and wished hoemwith [facility]. She was discharged home. SIGNIFICANT DIAGNOSTIC STUDIES: [...] Complexity: follow up within 7-14 calendar days (69650) [] Severe Complexity: follow up within 7 calendar days (32984) FOLLOW UP TESTING, PENDING RESULTS OR REFERRALS AT TRANSITIONAL CARE VISIT: [] Yes [] No PENDING STUDIES: No DISPOSITION: Home FACILITY/HOME CARE AGENCY NAME: Follow up with Betsey Gresham MD [address] [place] [address] [place] [phone] Schedule an appointment as soon as possible for a visit in 3 week(s) Herminia Case MD [address] [facility] [address] Schedule an appointment as soon as possible [...] MD 05/24/2022, 10:00 AM documented in this [facility]03-06-2023 History of Present illness Narrative* Martita Ervin, HR COORDINATOR - 05/24/2022 8:39 AM EST Physical Therapy Facility/Department: [facility] Physical Therapy Daily Treatment Note NAME: [...] Allergic rhinitis, Arthritis, Asthma, Bronchitis, Cancer (CMS/HCC) ([facility]), Cervical cancer (CMS/HCC) ([facility]), Chest pain, COPD (chronic obstructive pulmonary disease) ([facility]), DDD (degenerative disc disease), cervical, Defect, retina, with detachment, DJD (degenerative joint disease), lumbar, Emphysema lung ([facility]), Former smoker, Hematuria, Hypokalemia, Lung nodules, Osteoporosis, Palpitations, Pneumonia, Recurrent major depression ([facility]), Sciatica, Thoracic compression fracture ([facility]), and Vitamin D deficiency. She has no past medical history of Blood circulation, collateral, Chronic kidney disease, Clotting disorder (CMS/HCC) ([facility]), Disease of blood and blood forming organ, GERD (gastroesophageal reflux disease), Liver disease, Movement disorder, Other disorders of kidney and ureter in diseases classified elsewhere, Seizures (CMS/HCC) ([facility]), or Syncope and collapse. has a [...] but no LOB noted. Distance (ft) 1: [id number] Comments 1: O2 after 50ft x 1 [...] Inpatient Mobility Raw Score: 16 Mobility Inpatient [facility] G-Code Modifier: CK Goals Encounter Problems Encounter [...] were not included. Hospitalist Progress Note 05/23/[phone]: Please message me for patient care issues. [phone]: Please message [facility] Hospitalist for any issues. Subjective: Admit Date: 05/21/2022 PCP: HERMINIA CASE MD Room#: B1-147/B1-147 B Interval History: Remains on oxygen. Tolerating diet. Pain controlled. Denies chest pain, sob, abdominal pain, nausea, vomiting, diarrhea, constipation, fevers, or chills. She is weak. Still does notwant SNF/FBT but does not feel ready to go home today. D/w pt and RN separately. Adult diet Regular @CCIO1BOWEUI@ 24HR INTAKE/OUTPUT: No intake or output data [...] Vitamin D deficiency LABS: CBC: Recent Labs 05/21/2252505/22/2245005/23/228 WBC 12.1* 7.5 9.6 RBC 4.09 3.47* [...] (98.6 F) (Temporal) Resp 16 Ht 5' 5 (1.651 m) Wt 146 lb 2.6 oz [...] TERESA CEDILLO MD Division of Hospitalist Medicine [facility] PAGER: Epic chat * Andres Ventura MD - 05/23/2022 12:25 PM EST H: Patient sleeping soundly. I did not wake her. Chart reviewed. Recent Labs 05/23/22 0058 HGB 10.3* WBC 9.6 VS: Blood pressure 107/79, pulse 91, temperature 37 C (98.6 F), temperature source Temporal, resp. rate 16, height 1.651 m (5' 5), weight 66.3 kg (146 lb 2.6 oz), [...] 05/23/2022 8:34 AM EST Physical Therapy Facility/Department: [facility] E Physical Therapy Daily Treatment Note NAME: Gonazlo Deluca : 1955 Date of Service: 05/23/2022 [...] Allergic rhinitis, Arthritis, Asthma, Bronchitis, Cancer (CMS/HCC) ([facility]), Cervical cancer (CMS/HCC) ([facility]), Chest pain, COPD (chronic obstructive pulmonary disease) ([facility]), DDD (degenerative disc disease), cervical, Defect, retina, with detachment, DJD (degenerative joint disease), lumbar, Emphysema lung ([facility]), Former smoker, Hematuria, Hypokalemia, Lung nodules, Osteoporosis, Palpitations, Pneumonia, Recurrent major depression ([facility]), Sciatica, Thoracic compression fracture ([facility]), and Vitamin D deficiency. She has no past medical history of Blood circulation, collateral, Chronic kidney disease, Clotting disorder (CMS/HCC) ([facility]), Disease of blood and blood forming organ, GERD (gastroesophageal reflux disease), Liver disease, Movement disorder, Other disorders of kidney and ureter in diseases classified elsewhere, Seizures (CMS/HCC) ([facility]), or Syncope and collapse. has a [...] feeling better now that pain meds have kicked in. Pt reports plan to go home vs [...] Inpatient Mobility Raw Score: 16 Mobility Inpatient CMS G-Code Modifier: CK Goals Encounter Problems Encounter Problems (Active) Balance Patient will maintain dynamic standing balance for 5 minutes with SBA in order to demonstrate decreased risk of falling. (Progressing) Start: 03/03/23 Expected End: 05/28/22 Exercise Patient will complete [...] 05/22/2022 2:44 PM EST Physical Therapy Facility/Department: [facility] Physical Therapy Daily Treatment Note NAME: Gonzalo [...] Allergic rhinitis, Arthritis, Asthma, Bronchitis, Cancer (CMS/HCC) ([facility]), Cervical cancer (CMS/HCC) ([facility]), Chest pain, COPD (chronic obstructive pulmonary disease) ([facility]), DDD (degenerative disc disease), cervical, Defect, retina, with detachment, DJD (degenerative joint disease), lumbar, Emphysema lung ([facility]), Former smoker, Hematuria, Hypokalemia, Lung nodules, Osteoporosis, Palpitations, Pneumonia, Recurrent major depression ([facility]), Sciatica, Thoracic compression fracture ([facility]), and Vitamin D deficiency. She has no past medical history of Blood circulation, collateral, Chronic kidney disease, Clotting disorder (CMS/HCC) ([facility]), Disease of blood and blood forming organ, GERD (gastroesophageal reflux disease), Liver disease, Movement disorder, Other disorders of kidney and ureter in diseases classified elsewhere, Seizures (CMS/HCC) ([facility]), or Syncope and collapse. has a [...] Inpatient Mobility Raw Score: 14 Mobility Inpatient [facility] G-Code Modifier: CL Goals Encounter Problems Encounter [...] note were not included. Hospitalist Progress Note 05/22/[id number]: Please message me for patient care issues. [phone]: Please message [facility] Hospitalist for any issues. Subjective: Admit Date: 05/21/2022 PCP: HERMINIA CASE MD Room#: -147/[facility] B Interval History: Pain controlled. Tolerating diet. Weak. Denies chest pain, sob, abdominal pain, nausea, vomiting, diarrhea, constipation, fevers, or chills. D/w pt Adult diet Regular @OYHR2FCIGZC@ 24HR INTAKE/OUTPUT: No intake or output data [...] (98.4 F) (Temporal) Resp 16 Ht 5' 5 (1.651 m) Wt 146 lb 2.6 oz [...] Relation: Child TERESA CEDILLO MD [facility] PAGER: Epic chat * Andres Ventura MD - 05/22/2022 10:42 AM EST H: Patient resting comfortably. No issues over night. Recent Labs 05/22/22 0451 HGB 10.8* WBC 7.5 VS: Blood pressure 102/67, pulse 92, temperature 36.9 C (98.4 F), temperature source Temporal, resp. rate 16, height 1.651 m (5' 5), weight 66.3 kg (146 lb 2.6 oz), SpO2 93 %. PE: Afeb VSS. Shoulder immobilizer intact right UE. NVI distally. IMP: 3-part fx right proximal humerus. Probable right radial head fx. PLAN: Shoulder immobilizer. NWB right UE. Therapy recommends FBT. Discharge planning. * Greer Delarosa, PT - 05/21/2022 3:31 PM EST Physical Therapy Facility/Department: [facility] ED Physical Therapy Initial Evaluation NAME: Gonzalo [...] Allergic rhinitis, Arthritis, Asthma, Bronchitis, Cancer (CMS/HCC) ([facility]), Cervical cancer (CMS/HCC) ([facility]), Chest pain, COPD (chronic obstructive pulmonary disease) ([facility]), DDD (degenerative disc disease), cervical, Defect, retina, with detachment, DJD (degenerative joint disease), lumbar, Emphysema lung ([facility]), Former smoker, Hematuria, Hypokalemia, Lung nodules, Osteoporosis, Palpitations, Pneumonia, Recurrent major depression ([facility]), Sciatica, Thoracic compression fracture ([facility]), and Vitamin D deficiency. She has no past medical history of Blood circulation, collateral, Chronic kidney disease, Clotting disorder (CMS/HCC) ([facility]), Disease of blood and blood forming organ, GERD (gastroesophageal reflux disease), Liver disease, Movement disorder, Other disorders of kidney and ureter in diseases classified elsewhere, Seizures (CMS/HCC) ([facility]), or Syncope and collapse. has a [...] Independent (no device) Transfer Assistance: Independent Active Content Assistant: No Additional Comments: daughter works Objective Observation/Palpation [...] ~15'x2 Comments 1: Pt requires CGA with Jfef at times due to unsteadiness. Pt with [...] Inpatient Mobility Raw Score: 12 Mobility Inpatient [facility] G-Code Modifier: CL Goals Encounter Problems Encounter [...] 05/21/2022 3:27 PM EST Occupational Therapy Facility/Department: [facility] ED Occupational Therapy Initial Evaluation NAME: Gonzalo [...] Allergic rhinitis, Arthritis, Asthma, Bronchitis, Cancer (CMS/HCC) ([facility]), Cervical cancer (CMS/HCC) ([facility]), Chest pain, COPD (chronic obstructive pulmonary disease) ([facility]), DDD (degenerative disc disease), cervical, Defect, retina, with detachment, DJD (degenerative joint disease), lumbar, Emphysema lung ([facility]), Former smoker, Hematuria, Hypokalemia, Lung nodules, Osteoporosis, Palpitations, Pneumonia, Recurrent major depression ([facility]), Sciatica, Thoracic compression fracture ([facility]), and Vitamin D deficiency. She has no past medical history of Blood circulation, collateral, Chronic kidney disease, Clotting disorder (CMS/HCC) ([facility]), Disease of blood and blood forming organ, GERD (gastroesophageal reflux disease), Liver disease, Movement disorder, Other disorders of kidney and ureter in diseases classified elsewhere, Seizures (CMS/HCC) ([facility]), or Syncope and collapse. has a [...] Independent (no device) Transfer Assistance: Independent Active Content Assistant: No Additional Comments: daughter works Objective Gross [...] Daily Activity Raw Score: 17 ADL Inpatient [facility] G-Code Modifier: CK Goals Encounter Problems Encounter [...] is seen and examined, admitted by the wire insulator early a.m., see H&P for details. Patient [...] 05/21/2022 7:43 AM EST Occupational Therapy Facility/Department: [facility] ED Occupational Therapy Initial Evaluation NAME: Gonzalo [...] 05/21/2022 7:40 AM EST Physical Therapy Facility/Department: [facility] ED Physical Therapy Initial Evaluation NAME: Gonzalo Deluca : 1955 Date of Service: 05/21/2022 PT/OT evaluation orders received and chart review completed. Pt found to have R proximal humerus fracture and possible R elbow occult right osseous fracture. Ortho consult pending. Will hold for updated POC and weight bearing status prior to initiating evaluation. Marian Mendosa PT documented in this [facility] [id number] Plan of care note* Care Plan - [...] will remain free of falls Outcome: [facility]ing [id number] Plan of care note* Care Plan - [...] Swift RN Outcome: Progressing 05/23/2022 180 by Nicoel Swift RN Outcome: Progressing Problem: Safety Goal: Patient will be injury free during hospitalization 05/23/2022 180 by Nicole Swift RN Outcome: Progressing 05/23/2022 180 by Nicole Swift RN Outcome: Progressing Goal: I will remain free of falls 05/23/2022 180 by Nicole Swift RN Outcome: Progressing 05/23/2022 180 by Nicole Swift RN Outcome: Progressing [facility] [id number] Note* Care Coordination - Unknown Case Management - 05/23/2022 2:13 PM EST Patient Choice Patient Name: GONZALO DELUCA Date of : 1955 All Providers Sent Referral Name: [facility] Phone: [phone] Address: [address] [place] [address] [facility] [id number] Note* Care Coordination - Unknown Case Management - 05/23/2022 2:13 PM EST Patient Choice Patient Name: GONZALO DELUCA Date of : 1955 All Providers Sent Referral Name: [facility] Phone: [phone] Address: [address] [place], [place] [id number] [facility] [id number] Note* Home Care - Mahsa Castro RN - 05/23/2022 2:03 PM EST Start PACC Note Home Health Referral Educated patient on Home Care and services available. Patient offered choice of available HHC and agreeable to PT/OT services with [facility] - [facility]. Care [...] is noted as yes - consider a SWEAT BAND SEWER evaluation once the patient returns home. START PATIENT REGISTRATION INFORMATION Order Information Order Signing Physician: Teresa Cedillo MD Service Ordered RN ?: No Service Ordered PT ?: Yes Service Ordered OT ?: Yes Service Ordered ST ?: No Service Ordered SWEAT BAND SEWER?:No Service Ordered SENIOR MECHANICAL DESIGN ENGINEER?: No Following Physician: HERMINIA CASE MD Following Physician Overseeing Physician: HERMINIA CASE MD (Required for Residents only) Agreeable to Follow? Office closed Date/Time of Call 05/23/22 2:04 PM Care Coordination SOC Call from [facility] Required?: No Same Day SOC?: No Primary Care Physician: HERMINIA CASE MD Primary Care Physician Primary Care Physician Address: [address] [place] [phone] Visit Instructions: N/A Service Discharge Location Type: Home with Home Health Care Service Facility Name: N/A Service Floor Facility: N/A Service Room No: N/A Demographics Patient Last Name: Yosi Patient First Name: Gonzalo Language/Communication Barrier: n/a Service Address: [address] [place], [place] [address] Service City: [facility] ST: [place] Service ZIP: [address] Service (home) Other phone numbers: Telephone Information: Emergency Contact: Extended Emergency Contact Information Primary Emergency Contact: Karishma Deluca Relation: Child Secondary Emergency Contact: Jace Deluca Relation: Child Admission Information Admit Date: 05/21/2022 Patient status at discharge: Observation Caregiver Information Caregiver First Name: Karishma Caregiver Last Name: Yosi Caregiver Relationship to Patient dtr Caregiver Caregiver Notes: N/A [employer] List No END PATIENT REGISTRATION INFORMATION [...] side Discharge Date: 05/23/22 Referral Source-PACC: (Hospital/Unit): [facility] / B1-147/B1-147 B End PACC Note [id number] [facility]* Home Care - Mahsa Castro RN - 05/23/2022 2:03 PM EST Start PACC Note Home Health Referral Educated patient on Home Care and services available. Patient offered choice of available HHC and agreeable to PT/OT services with [facility] - [facility] Care. Care Types: [...] is noted as yes - consider a SWEAT BAND SEWER evaluation once the patient returns home. START PATIENT REGISTRATION INFORMATION Order Information Order Signing Physician: Teresa Cedillo MD Service Ordered RN ?: No Service Ordered PT ?: Yes Service Ordered OT ?: Yes Service Ordered ST ?: No Service Ordered SWEAT BAND SEWER?:No Service Ordered SENIOR MECHANICAL DESIGN ENGINEER?: No Following Physician: HERMINIA CASE MD Following Physician Overseeing Physician: HERMINIA CASE MD (Required for Residents only) Agreeable to Follow? Office closed Date/Time of Call 05/23/22 2:04 PM Care Coordination SOC Call from [facility] Required?: No Same Day SOC?: No Primary Care Physician: HERMINIA CASE MD Primary Care Physician Primary Care Physician Address: [address] [place] [id number] Visit Instructions: N/A Service Discharge Location Type: Home with Home Health Care Service Facility Name: N/A Service Floor Facility: N/A Service Room No: N/A Demographics Patient Last Name: Yosi Patient First Name: Gonzalo Language/Communication Barrier: n/a Service Address: [address] [place], [place] [address] Service City: [facility] ST: [place] Service ZIP: [address] Service (home) Other phone numbers: Telephone Information: Emergency Contact: Extended Emergency Contact Information Primary Emergency Contact: Karishma Deluca Relation: Child Secondary Emergency Contact: Jace Deluca Relation: Child Admission Information Admit Date: 05/21/2022 Patient status at discharge: Observation Caregiver Information Caregiver First Name: Karishma Caregiver Last Name: Yosi Caregiver Relationship to Patient dtr Caregiver Caregiver Notes: N/A Only [employer] List No END PATIENT REGISTRATION INFORMATION Pt [...] side Discharge Date: 05/23/22 Referral Source-PACC: (Hospital/Unit): [facility] / B1-147/B1-147 B End PACC Note [id number] Hospital Discharge instructions* Discharge Instr - Activity* Teresa Cedillo MD - 05/23/2022 12:34 PM EST Non weight bearing right upper extremity Continue shoulder immobilizer * Discharge Instr - Diet* Teresa Cedillo MD - 05/23/2022 12:35 PM EST Regular diet * Discharge Instr - Other Orders* Mahsa Castro RN - 05/23/2022 2:03 PM EST Discharging to Facility/ Agency Name: [facility] Address: [address] [place] [address] * Discharge Instr - SHAMA* Deanna Nick, JACKSCREW MAN - 05/24/2022 10:49 AM EST Continuity of Care Form Patient Name: Gonzalo Deluca : 1955 Admit date: 05/21/2022 Discharge date: Code Status Order: Full Code Advance Directives: N Admitting Physician: Teresa Cedillo MD PCP: HERMINIA CASE MD Discharging Nurse: Discharging Hospital Unit/Room#: B1-147/B1-147 B Discharging Unit Phone Number: Emergency Contact: Extended Emergency Contact Information Primary Emergency Contact: Nacho Delucai Relation: Child Secondary Emergency Contact: Jace Deluca Relation: Child Past Surgical History: Past Surgical History: Procedure Laterality Date CYSTOSCOPY 01/12/2017 OFFICE PROCEDURE CYSTOSCOPY 02/11/2017 C&P bladder biopsy EYE SURGERY detached retina 1994 HYSTERECTOMY 11/06/2019 ABDOMINAL RADICAL HYSTERECTOMY WITH BSO AND PELVIC LYMPH; DR. ZIYAD MENENDEZ [facility] OTHER SURGICAL HISTORY Left 12/19/2019 Med Port [...] F) (Temporal) Resp 16 Ht 1.651 m (5'5) Wt 66.3 kg (146 lb 2.6 oz) SpO2 92% BMI 24.32 kg/m Last documented pain score (0-10 scale): Last Weight: Wt Readings from Last 1 Encounters: 05/22/22 66.3 kg (146 lb 2.6 oz)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 07/01/2021 2:17 PM EDT Last appointment: 05-06-21 Next appointment: 08-06-21 Pharmacy verified in [facility]. Refill(s) requested: Pending Prescriptions Disp Refills PREDNISONE 20 MG TABLET 12 tablet 0 Si tabs daily x 3 days, then 1 tab daily x 3 days, then 1/2 tab daily x 4 days SLAVA: No Order(s) pended. Please advise. Evangelina Baltazar MA, PAINT PREP TECHNICIAN documented in this encounterMercy Health Anderson Hospital10-08-2021 History of Present illness Narrative* Shelley Lott, RN - 12/26/2020 9:45 AM EDT Patient here for port access prior to CT scan, labs drawn via port. 1015 Patient taken to radiology by this RN, left at window with registration. documented in this encounterSProjektino Work Phone: 1(608) 437-105607-29-2021 Hospital Discharge instructions* Instructions* Lauren Lutz APRN - SHOE TURNER - 10/16/2020 Use a hemorrhoid pillow for the coccyx fracture, take your pain medication. * Attachments The following attachments cannot be sent through Care Everywhere. * Coccyx Injury (Peruvian) documented in this encounterSUMMA Work Phone: 1(881) 445-543507-07-2021 History of Present illness Narrative* Judy Mayer RN - 09/24/2020 10:55 AM EDT Arrival Note Patient is here for port access and flush for CT scan Labs were not ordered. 1230-Ordered treatment completed. Patient discharged without any issues. Patient has a copy of nextinfusion appointment and verbalizes understanding. All questions answered. documented in this encounterSProjektino Work Phone: Evaluation note* Diagnosis Poor venous [...] thoracic vertebra (HCC) documented in this encounter [facility]Eval[facility]* Diagnosis Compression fracture of body of thoracic vertebra (HCC) [facility]* Diagnosis COPD (chronic obstructive pulmonary disease) with acute bronchitis (HCC) Obstructive chronic bronchitis with acute bronchitis documented in this encounter [facility]* Diagnosis Panlobular emphysema (HCC)- Primary Other [...] Solitary pulmonary nodule documented in this encounter [facility]* Diagnosis Compression fracture of body of thoracic vertebra (HCC) documented in this encounter [facility]* Diagnosis Malignant neoplasm of exocervix (HCC)- [...] thoracic vertebra (HCC) documented in this encounter [facility]* Diagnosis Medication management Encounter for long-term (current) use of other medications documented in this encounter [facility]* Diagnosis Hyperlipidemia, mixed Mixed hyperlipidemia documented in this encounter [facility] HospitalEvaluation [facility]* Diagnosis Compression fracture of body of thoracic vertebra (HCC) [facility]* Diagnosis Other acute sinusitis, recurrence not specified- Primary documented in this encounter [facility]* Diagnosis Chronic midline low back pain without sciatica [facility]* Diagnosis Medication management Encounter for long-term (current) use of other medications [facility] encounter [facility]* Diagnosis Panlobular emphysema (HCC)- Primary Other emphysema documented in this encounter [facility]* Diagnosis COPD (chronic obstructive pulmonary disease) with acute bronchitis (HCC)- Primary Obstructive chronic bronchitis with acute bronchitis DDD (degenerative disc disease), lumbar Degeneration of lumbar or lumbosacral intervertebral disc Major depression, recurrent, chronic (HCC) Major depressive disorder, recurrent episode, unspecified documented in this encounter [facility]* Diagnosis Chronic midline low back pain without sciatica documented [facility] this encounter [facility]* Diagnosis Compression fracture of body of thoracic vertebra (HCC) documented [facility] this encounter [facility]* Diagnosis Other closed nondisplaced fracture of [...] thoracic vertebra (HCC) documented [facility] encounter [facility]* Diagnosis Chronic respiratory failure with hypoxia (HCC)- Primary Chronic respiratory failure Panlobular emphysema (HCC) Other emphysema documented [facility] encounter [facility]* Diagnosis Encounter for screening mammogram for breast cancer documented [facility] this encounter [facility]* Diagnosis Compression fracture of body of thoracic vertebra (HCC) Other closed nondisplaced fracture of proximal end of right humerus with routine healing, subsequent encounter documented in this encounter [facility]* Diagnosis Major depression, recurrent, chronic (HCC) Major depressive disorder, recurrent episode, unspecified documented [facility] encounter [facility]* Diagnosis Medication management Encounter for long-term (current) use of other medications documented [facility] this encounter [facility]* Diagnosis Panlobular emphysema (HCC)- Primary Other [...] recurrent episode, unspecified documented in this encounter [facility]* Diagnosis Major depression, recurrent, chronic (HCC) Major depressive disorder, recurrent episode, unspecified documented in this encounter [facility]* Diagnosis Malignant neoplasm of exocervix (HCC)- Primary Malignant neoplasm of exocervix Encounter for screening mammogram for malignant neoplasm of breast documented in this encounter [facility] note* Diagnosis Compression fracture of body of thoracic vertebra (HCC) Other closed nondisplaced fracture of proximal end of right humerus with routine healing, subsequent encounter documented in this encounter [facility]* Diagnosis Major depression, recurrent, chronic (HCC) Major depressive disorder, recurrent episode, unspecified documented in this encounter [facility]* Diagnosis Pulmonary emphysema, unspecified emphysema type (HCC) documented in this encounter [facility]* Diagnosis Nondisplaced fracture of neck of left femur (HCC)- Primary Closed displaced intertrochanteric fracture of left femur, initial encounter ([facility]) documented in this encounter [facility] note* Diagnosis Compression fracture of body of thoracic vertebra (HCC) documented [facility] encounter [facility]* Diagnosis Compression fracture of body of thoracic vertebra (HCC) Other closed nondisplaced fracture of proximal end of right humerus with routine healing, subsequent encounter documented in this encounter [facility]* Diagnosis Hyperlipidemia, mixed Mixed hyperlipidemia documented in this encounter [facility]* Diagnosis Pulmonary emphysema, unspecified emphysema type (HCC) documented in this encounter [facility]* Diagnosis Age-related osteoporosis without current pathological fracture Senile osteoporosis documented in this encounter [facility]* Diagnosis Age-related osteoporosis with current pathological fracture of left femur with routine healing- Primary Aftercare for healing pathologic fracture of upper leg [facility]* Diagnosis Compression fracture of body [...] of moderate degree documented in this encounter [facility]* Diagnosis Lumbar compression fracture, closed, initial encounter ([facility])- Primary Lumbar compression fracture, closed, initial encounter ([facility]) Fall, initial encounter Multiple falls Nondisplaced fracture of neck of left femur (HCC) documented in this encounter [facility] note* Diagnosis Compression fracture of body of thoracic vertebra (HCC) Other closed nondisplaced fracture of proximal end of right humerus with routine healing, subsequent encounter documented in this encounter [facility]* Diagnosis PAUL (generalized anxiety disorder)- Primary [...] depressive disorder (HCC) documented in this encounter [facility]* Diagnosis Moderate episode of recurrent major depressive disorder (HCC)- Primary Panlobular emphysema (HCC) Other emphysema documented in this encounter [facility]* Diagnosis Age-related osteoporosis with current pathological fracture of left femur, initial encounter ([facility])- Primary [facility]* Diagnosis PAUL (generalized anxiety disorder) Generalized anxiety disorder documented in this encounter [facility]* Diagnosis Compression fracture of body of thoracic vertebra (HCC) Other closed nondisplaced fracture of proximal end of right humerus with routine healing, subsequent encounter [facility]* Diagnosis Compression fracture of body of thoracic vertebra (HCC) Other closed nondisplaced fracture of proximal end of right humerus with routine healing, subsequent encounter documented in this encounter [facility]* Diagnosis Encounter for screening mammogram for [facility] Diagnosis Compression fracture of body of thoracic vertebra (HCC) Other closed nondisplaced fracture of proximal end of right humerus with routine healing, subsequent encounter documented in this encounter [facility] note* Diagnosis Pulmonary emphysema, unspecified emphysema type (HCC) documented in this encounter [facility] note* Diagnosis Moderate episode of recurrent major depressive disorder (HCC) PAUL (generalized anxiety disorder) Generalized anxiety disorder documented in this encounter [facility] note* Diagnosis Moderate episode of recurrent major depressive disorder (HCC) PAUL (generalized anxiety disorder) Generalized anxiety disorder documented in this encounter [facility] note* Diagnosis Medication management Encounter for long-term (current) use of other medications [facility]* Diagnosis Moderate episode of recurrent major depressive disorder (HCC)- Primary Panlobular emphysema (HCC) Other emphysema Chronic respiratory failure with hypoxia ([facility]) Chronic respiratory failure documented in this encounter [facility] note* Diagnosis Major depression, recurrent, chronic (HCC) Major depressive disorder, recurrent episode, unspecified documented in this encounter [facility] note* Diagnosis Bronchitis- Primary Bronchitis, not specified as acute or chronic COPD exacerbation ([facility]) Obstructive chronic bronchitis with exacerbation documented in this encounter [facility] note* Diagnosis Compression fracture of body of thoracic vertebra (HCC) Other closed nondisplaced fracture of proximal end of right humerus with routine healing, subsequent encounter [facility]* Diagnosis Herpes zoster without complication- Primary Herpes zoster without mention of complication documented in this encounter [facility] note* Diagnosis Compression fracture of body of thoracic vertebra (HCC) Other closed nondisplaced fracture of proximal end of right humerus with routine healing, subsequent encounter [facility]* Diagnosis Moderate episode of recurrent major depressive disorder (HCC) documented in this encounter [facility] note* Diagnosis Falls frequently- Primary Personal history of fall Near syncope Closed head injury, initial encounter Fall, initial encounter Compression fracture of T5 vertebra, initial encounter ([facility]) Compression fracture of T7 vertebra, initial encounter ([facility]) Compression fracture of T8 vertebra, initial encounter ([facility]) Compression fracture of L1 vertebra, initial encounter ([facility]) Severe malnutrition (CMS/HCC) ([facility]) Nutritional marasmus Chronic back pain Unspecified backache COPD (chronic obstructive pulmonary disease) (HCC) Chronic airway obstruction, not elsewhere classified Supplemental oxygen dependent Dependence on supplemental oxygen Unintentional weight loss Loss of weight Debility Unspecified debility documented in this encounter [facility] note* Diagnosis OPENED IN ERROR- Primary To allow closing an encounter opened in error (used in SmartSet) [facility] Diagnosis Pathological fracture of vertebra due to other osteoporosis with routine healing, subsequent encounter- Primary [facility] Diagnosis Pulmonary emphysema, unspecified emphysema type (HCC) [facility]* Diagnosis Osteoporotic vertebral collapse, with routine healing, subsequent encounter- Primary [facility]* Diagnosis Fall, initial encounter- Primary Compression fracture of body of thoracic vertebra (HCC) documented in this encounter [facility] note* Diagnosis Moderate episode of recurrent major depressive disorder (HCC) [facility] Diagnosis Compression fracture of body of thoracic vertebra (HCC) Other closed nondisplaced fracture of proximal end of right humerus with routine healing, subsequent encounter [facility]* Diagnosis Pulmonary emphysema, unspecified emphysema type (HCC) [facility]* Diagnosis Osteoporotic vertebral collapse, with routine healing, subsequent encounter- Primary [facility]* Diagnosis Panlobular emphysema (HCC) Other emphysema Compression fracture of body of thoracic vertebra (HCC) Other closed nondisplaced fracture of proximal end of right humerus with routine healing, subsequent encounter [facility]* Diagnosis Age-related osteoporosis without current pathological fracture Senile osteoporosis [facility]* Diagnosis Panlobular emphysema (HCC) Other emphysema [facility]* Diagnosis Compression fracture of body of thoracic vertebra (HCC) Other closed nondisplaced fracture of proximal end of right humerus with routine healing, subsequent encounter [facility]* Diagnosis PAUL (generalized anxiety disorder) Generalized anxiety disorder [facility]* Diagnosis Malignant neoplasm of exocervix (HCC)- Primary Malignant neoplasm of exocervix documented in this encounter [facility] note* Diagnosis Fall, initial encounter- Primary Fall, initial encounter Facial laceration, initial encounter Closed fracture of neck of right humerus, initial encounter Humeral head fracture, right, closed, initial encounter Humeral head fracture, right, closed, initial encounter [facility]* Diagnosis Compression fracture of body of thoracic vertebra (HCC) Other closed nondisplaced fracture of proximal end of right humerus with routine healing, subsequent encounter [facility] Diagnosis Moderate episode of recurrent major depressive disorder (HCC) [facility]* Diagnosis Moderate episode of recurrent major depressive disorder (HCC) PAUL (generalized anxiety disorder) Generalized anxiety disorder [facility]* Diagnosis Pulmonary emphysema, unspecified emphysema type (HCC) [facility]* Diagnosis Contusion of face, initial encounter- Primary documented [facility]* Diagnosis Compression fracture of body of [...] healing, subsequent encounter [facility]* Diagnosis Moderate episode of recurrent major depressive disorder (HCC) Compression fracture of body of thoracic vertebra (HCC) Other closed nondisplaced fracture of proximal end of right humerus with routine healing, subsequent encounter [facility]* Diagnosis Panlobular emphysema (HCC)- Primary Other emphysema Moderate episode of recurrent major depressive disorder (HCC) Chronic respiratory failure with hypoxia (HCC) Chronic respiratory failure [facility]* Diagnosis Compression fracture of body of thoracic vertebra (HCC) Other closed nondisplaced fracture of proximal end of right humerus with routine healing, subsequent encounter [facility]* Diagnosis Chronic respiratory failure with hypoxia (HCC)- Primary Chronic respiratory failure Centrilobular emphysema (HCC) Other emphysema Adult failure to thrive Severe protein-calorie malnutrition (HCC) Other severe protein-calorie malnutrition [facility]* Diagnosis Chronic obstructive pulmonary disease, unspecified COPD type (HCC)- Primary Severe malnutrition (CMS/HCC) (HCC) Nutritional marasmus documented in this encounter [facility] note* Diagnosis Adult failure to thrive- Primary [...] risk for delirium documented in this encounter [facility] note* Diagnosis PAUL (generalized anxiety disorder) Generalized anxiety disorder documented in this encounter [facility] note* Diagnosis Hospital discharge follow-up- Primary Other follow-up examination Acute on chronic respiratory failure with hypoxia (HCC) Centrilobular emphysema (HCC) Aspiration pneumonia of left lower lobe, unspecified aspiration pneumonia type (HCC) Chronic obstructive pulmonary disease with acute lower respiratory infection (HCC) History of tobacco abuse Severe malnutrition (CMS/HCC) (HCC) Nutritional marasmus documented in this encounter [facility] note* Diagnosis Compression fracture of body of thoracic vertebra (HCC) Other closed nondisplaced fracture of proximal end of right humerus with routine healing, subsequent encounter documented in this encounter [facility] note* Diagnosis Other specified complication of vascular prosthetic devices, implants and grafts, initial encounter ([facility])- Primary Poor venous access documented in this encounter [facility] note* Diagnosis Chronic obstructive pulmonary disease with acute lower respiratory infection (HCC) documented in this encounter [facility] Discharge instructions* Attachments The following attachments cannot be sent through Care Everywhere. * Acute Bronchitis Discharge Instructions, Adult (Peruvian) documented in this [facility] Discharge instructions* Attachments The following attachments cannot be sent through Care Everywhere. * Closed Head Injury Discharge Instructions (Peruvian) documented in this [facility] for referral (narrative)* Diagnostic Procedure Only (Routine) - Pending Review Specialty Diagnoses / Procedures Referred By Lisa french Referred To Contact [facility] Diagnoses Encounter for screening mammogram for breast cancer Procedures [facility] SCREENING SCREENING MAMMOGRAPHY BI 2-VIEW BREAST INC Herminia Perkins MD [address] [place] [id number] [facility] [address] [place] [address] Referral ID Status Reason Start Date Expiration Date Visits Requested Visits Authorized [id number] Pending Review Auto-Generat ed Referral 07/14/2022 08/13/2023 1 1 [facility] (narrative)* Diagnostic Procedure Only (Routine) - Pending Review Specialty Diagnoses / Procedures Referred By Pieterac t Referred To Contact [facility] Diagnoses Encounter for screening mammogram for breast cancer Procedures [facility] SCREENING SCREENING MAMMOGRAPHY BI 2-VIEW BREAST INC CAD Herminia Case MD [address] [place] [id number] [facility] [address] [place] [address] Referral ID Status Reason Start Date Expiration Date Visits Requested Visits Authorized [id number] Pending Review Auto-Generat ed Referral 06/22/2023 07/21/2024 1 1 [facility] for visit Narrative* Treatment Plan (Routine) Status Reason Specialty Diagnoses / Procedures Referred By Contact Referred To Contact Authorized Diagnoses Malignant neoplasm of exocervix (HCC) Poor venous access Ziyad Menendez MD [address] [place] [address] [facility] [address] [place] [address] [employer] Work Phone: Reason for visit Narrative* Treatment Plan and Therapy Plan (Routine) Status Reason Specialty Diagnoses / Procedures Referred By Contact Referred To Contact Authorized Diagnoses Malignant neoplasm of exocervix (HCC) Poor venous access Ziyad Menendez MD [address] [place] [address] [facility] [address] [place] [address] [employer] Work Phone: Reason for visit Narrative* Treatment Plan and Therapy Plan (Routine) - Pending Review Specialty Diagnoses / Procedures Referred By Lisa french Referred To Contact Diagnoses Poor venous access Other specified complication of vascular prosthetic devices, implants and grafts, initial encounter (HCC) Herminia Case MD [address] [place] [address] [facility] [address] [place] [address] Referral ID Status Reason Start Date Expiration Date V isits Requested Visits Authorized [id number] Pending Review 08/06/2021 08/06/2022 1 1 [facility] Phone: Reason for visit Narrative* Imaging (Routine) - Closed Specialty Diagnoses / Procedures Referred By Lisa french Referred To Contact Radiology Diagnoses Chronic obstructive pulmonary disease with acute lower respiratory infection (HCC) Procedures CT chest wo IV contrast Elyssa Tesfaye NP [address] [place] [address] Phone: tel: fax: Referral ID Status Reason Start Date Expiration Date Visits Re quested Visits Authorized [id number] Closed 08/20/2024 08/20/2025 1 1 [facility] [employer] Discharge Instructions * Pharmacy* Estee Pantoja RPH [...] doctor for further instructions HERMINIA CASE MD [phone] RED ZONE: Medical Alert Severe or unrelieved shortness of breath at rest Unrelieved chest pain Not able to do any activity because of breathing Not able to sleep because of breathing Confusion or you can't think clearly This Means You Should Call 911 Immediately documented in this encounter* Attachments The following attachments cannot be sent through Care Everywhere. * Compression Fracture: Spine (Peruvian) documented in this encounter* Instructions* Ankit Zaragoza [...] Real RN - 11/05/2019 Please bring your [employer] Surgical Information folder on the day of [...] through Care Everywhere. * Hysterectomy: Abdominal: Pre-op (Peruvian) * Oophorectomy: Pre-op (Peruvian) documented in this encounter* Instructions* Tani Joseph MD - 11/09/2019 Come back tomorrow for your ultrasound. If you have any chest pain or shortness of breath return tot emergency department immediately * Attachments The following attachments cannot be sent through Care Everywhere. * Edema: Leg and Ankle (Peruvian) documented in this encounter* Instructions* Jaspreet Lam [...] call and ask for the Interventional Radiologist business liaison officer. IF YOU REPORT TO AN EMERGENCY ROOM, DOCTOR'S OFFICE OR HOSPITAL WITHIN 24 HOURS AFTER YOUR PROCEDURE, BRING THIS SHEET AND YOUR AFTER VISIT SUMMARY WITH YOU AND GIVE IT TO THE PHYSICIAN OR NURSE ATTENDING YOU.Implanted Port: What to Expect at Home Your Recovery Questions: [phone] You have had a procedure to implant [...] (before 7am or after 5 pm) call [phone] and ask for the Interventional Radiologist business liaison officer. Where can you learn more? Go to [email or web address] and sign in to your [employer] account. Enter M256 in the Search Health Information box to learn more about Implanted Port: What to Expect at Home. If you do not have an account, please click on the Sign Up Now link. Current as of: August 15, 2015 Content Version: 11.2 [employer]. Care instructions adapted under license by [employer]. If youhave questions about a medical condition or this instruction, always ask your healthcare professional. [employer] disclaims any warranty or liability for your use of this information. documented in this encounter* Attachments The following attachments cannot be sent through Care Everywhere. * COPD: General Info (Peruvian) * Bronchitis (Peruvian) documented in this encounter* Discharge Instr - [...] most local grocery stores, pharmacies, and chain super-stores. ? If you have any questions about your diet or nutrition, call the hospital and ask for the dietitian. General * Discharge Instr - Other Orders* Jessica Tubbs RN - 11/22/2019 1:27 PM EDT Your physician has ordered skilled home care services for you. Your home care will be provided by: [facility] [phone] * Attachments The following attachments cannot be sent through Care Everywhere. * Ischemic Stroke: General Info (Peruvian) documented in this encounter History of Present Illness * Phillip Snyder RCP - 08/04/2019 1:[address] [facility] Respiratory Care Department Progress Note SpO2 [...] EDT Hospitalist Progress Note 08/03/2019 2:56 PM [phone]: Please page me ([phone]) for patient care issues. [phone]: Please page IMS night Hospitalist for any issues. Subjective: Admit Date: 08/02/2019 PCP: HERMINIA CASE MD Room#: 680/[id number] Interval History: No overnight issues. Feels better. [...] 14.0 PLT 196 180 BMP: Recent Labs 08/02/19 1757 08/03/19 0519 NA 139 134* K 3.5 3.7 CL 101 99 CO2 26 28 BUN 9 11 CREATININE 0.61 0.49* GLUCOSE 118* 185* CALCIUM 8.7 8.2* ANIONGAP 11 8 LIVER PROFILE:No results for input(s): AST, ALT, BILITOT, ALKPHOS, LABALBU, PROT in the last 72 hours. PT/INR: No results for input(s): PROTIME, INR in the last 72 hours. CARDIAC ENZYMES: Recent Labs 08/02/19 1757 TROPONINI <0.012 Procalcitonin: Lab Results Component Value Date PROCAL 0.56 04/10/2017 Objective: Vitals: BP 123/66 Pulse 69 Temp 98.1 F (36.7 C) (Temporal) Resp 18 Ht 5' 5 (1.651 m) Wt 140 lb (63.5 kg) [...] to improve Roland Ortiz DO [facility] PAGER: [phone] documented in this encounter* Brandy Del Real RN - 11/05/2019 12:30 PM EDT Labs obtained on 1st attempt with 22 gauge needle at LAC site. Patient tolerated well, site benign. documented in this encounter* Jaspreet Lam, CHARLEY - 12/19/2019 1:56 PM EDT IR Procedures: [...] to ACS. documented in this encounter* Imtiaz Mckeon, RN - 01/17/2020 11:30 AM EDT Arrival [...] for lab draw, CBCdiff/CMP/Mag from port to [facility]. Pt just came from office visit with [...] Date: 11/21/2019 PCP: HERMINIA CASE MD Room#: [id number] Interval History: c/o feeling very anxious. Doesn't want to have MRI done bc she is claustrophobic.Feels like she is getting stronger. Denies chest pain, sob, abdominal pain, nausea, vomiting, diarrhea, constipation, fevers, or chills. DIET GENERAL; Dietary Nutrition Supplements: Low Calorie High Protein Supplement Patient Vitals for the past 96 hrs (Last 3 readings): Weight 11/21/19 2135 156 lb (70.8 kg) 11/21/19 155 150 lb (68 kg) Medications: clonazePAM 0.5 [...] Subcutaneous Daily LABS: CBC: Recent Labs 11/21/19 15511/22/19 0122 11/23/19 0144 WBC 6.8 8.9 7.3 RBC 3.63* 3.15* 3.24* HGB 11.0* 9.6* 9.9* HCT 34.5* 29.9* 30.5* MCV 95.1 94.9 94.3 RDW 14.0 13.8 13.7 PLT 438 380 366 BMP: Recent Labs 11/21/19 15511/22/19 0122 11/23/19 0144 NA 141 140 136 K 3.4* 3.1* 4.0 CL 100 103 101 CO2 37* 33* 31* BUN 12 11 12 CREATININE 0.66 0.54 0.55 GLUCOSE 93 99 87 CALCIUM 9.1 8.3* 8.6 ANIONGAP 4 4 3 LIVER PROFILE: Recent Labs 11/21/19 15511/22/19 012 AST 37 52* ALT 23 20 BILITOT 0.1* 0.2 ALKPHOS 96 77 LABALBU 3.3* 2.8* PROT 6.3 5.4* PT/INR: Recent Labs 11/21/19 1559 PROTIME 10.1 INR 1.0 CARDIAC ENZYMES: Recent Labs 11/21/19 1559 TROPONINI <0.012 Procalcitonin: Lab Results Component Value Date PROCAL 0.56 04/10/2017 Objective: Vitals: BP 118/76 Pulse 85 Temp 97.7 F (36.5 C) (Temporal) Resp 18 Ht 5' 5 (1.651 m) Wt 156 lb (70.8 kg) [...] 11/23/2019 11:46 AM EDT Physical Therapy Facility/Department: [facility] 4S TELEMETRY Initial Assessment NAME: Gonzalo Deluca [...] test, Allergic rhinitis, Arthritis, Asthma, Bronchitis, Cancer ([facility]), Cervical cancer ([facility]), Chest pain, COPD (chronic obstructive pulmonary disease) ([facility]), DDD (degenerative disc disease), cervical, Defect, retina, with detachment, DJD (degenerative joint disease), lumbar, Emphysema lung ([facility]), Former smoker, Hematuria, Hypokalemia, Lung nodules, Osteoporosis, Palpitations, Pneumonia, Recurrent major depression ([facility]), Sciatica, Thoracic compressionfracture ([facility]), and Vitamin D deficiency. has a [...] Assistance: Independent(no device) Transfer Assistance: Independent Active Content Assistant: Yes Mode of Transportation: Car Occupation: On [...] Left in bed, Nurse notified AM-PAC Score [facility] Inpatient Mobility Raw Score : 21 (11/23/19 1141) [facility] Inpatient T-Scale Score : 50.25 (11/23/19 1141) Mobility Inpatient CMS 0-100% Score: 28.97 (11/23/19 114) Mobility Inpatient CMS G-Code Modifier : CJ (11/23/19 114) [facility] Mobility Inpatient How much difficulty turning over [...] climbing 3-5 steps with a railing?: Total [facility] Inpatient Mobility Raw Score : 21 [facility] Inpatient T-Scale Score : 50.25 Mobility Inpatient CMS 0-100% Score: 28.97 Mobility Inpatient CMS G-Code Modifier : CJ Goals Short term goals Time Frame for Short term goals: EVAL ONLY Patient Goals Patient goals : Pt states she wants to get home Therapy Time Individual Concurrent Group Co-treatment Time In 1001(co-eval with OT) Time Out 1015 Minutes 14 Jennifer Esparza PT * Catalina Graff OT - 11/23/2019 [...] numbness/tingling/weakness, CT negative and MRI pending. Exam: [facility] Assistance / Modification: mod I OT Education: [...] Chest pain, COPD (chronic obstructive pulmonary disease) ([facility]), DDD (degenerative disc disease), cervical, Defect, retina, with detachment, DJD (degenerative joint disease), lumbar, Emphysema lung ([facility]), Former smoker, Hematuria, Hypokalemia, Lung nodules, Osteoporosis, Palpitations, Pneumonia, Recurrent major depression ([facility]), Sciatica, Thoracic compressionfracture ([facility]), and Vitamin D deficiency. has a [...] Assistance: Independent(no device) Transfer Assistance: Independent Active Content Assistant: Yes Mode of Transportation: Car Occupation: On [...] [facility] Inpatient Daily Activity Raw Score: 24 (11/23/19 113) [facility] In[facility] ADL T-Scale Score : 57.54 (11/23/19 113) ADL Inpatient CMS 0-100% Score: 0 (11/23/19 1138) ADL Inpatient CMS G-Code Modifier : CH (11/23/19 1138) Therapy Time Individual Concurrent Group Co-treatment Time In 1001(co-eval with PT) Time Out 1015 Minutes 14 Catalina Graff OT * Dayana Roman PT - 11/22/2019 2:59 PM EDT Physical Therapy Facility/Department: [facility] TELEMET[facility] Initial Assessment NAME: Gonzalo Deluca [...] as appropriate. Stacie Granados OT * Aparna Walter APRN - [place] - 11/22/2019 2:07 PM EDT Hospitalist Progress Note 11/22/2019 2:07 PM Subjective: Admit Date: 11/21/2019 PCP: HERMINIA CASE MD Room#: [id number] Interval History: No overnight issues; feeling much better today; ~95% Denies chest pain, sob, abdominal pain, nausea, vomiting, diarrhea, constipation, fevers, or chills. DIET GENERAL; Dietary Nutrition Supplements: Low Calorie High Protein Supplement Patient Vitals for the past 96 hrs (Last 3 readings): Weight 11/21/19 2135 156 lb (70.8 kg) 11/21/19 1552 150 lb (68 kg) Medications: sodium chloride 50 mL/hr at 09/02/20 2245 LORazepam 0.5 mg Oral Once sodium [...] (36.5 C) (Temporal) Resp 18 Ht 5' 5 (1.651 m) Wt 156 lb (70.8 kg) [...] head/neck and MRI of the brain pending. 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 Generator Assembler Strength: Not Performed Estimated Daily Nutrient Needs: Energy (kcal): 3302-8767 kcals; Weight Used for Energy Requirements: [place](57kg) Protein (g): 57-68(1-1.2); Weight Used for Protein Requirements: [place](57kg) Fluid (ml/day): 1710 ml/day or per MD; Weight Used for Fluid Requirements: [place] Nutrition Related Findings: +1-2 RLE edema; K+ 3.1, ca++ 8.3, albumin 2.8 Wounds: Surgical Wound(lower ab surgical incision, BUE bruising) Current Nutrition Therapies: DIET GENERAL; Dietary Nutrition Supplements: Low Calorie High Protein Supplement Anthropometric Measures: Height: 5' 5 (165.1 cm) Current Body Weight: 156 lb (70.8 kg) Admission Body Weight: 156 lb (70.8 kg) Usual Body Weight: 155 lb (70.3 kg)(150-155# in the last month) [place] Body Weight: 125 lbs; % [place] Body Weight 124.8 % BMI: 26 Adjusted [...] Continue current diet Contact: 3155 * Amelie Esquivel, OR FIRST ASSIST REGISTERED NURSE - 11/22/2019 9:57 AM EDT Speech Language Pathology Patient is on a General diet. Completed speech orders as per stroke protocol. Spoke with pt and completed speech screening. No obvious facial weakness, dysarthria, or language deficits. Amelie Esquivel M.A.[facility]/OR FIRST ASSIST REGISTERED NURSE Speech-Language Pathologist documented in this encounter* Florencia [...] time restraints. Wants to be scheduled in [place] for cathflo this week. Pham aware and [...] FoundDocuments on File Type Date Recorded Patient Psychotherapist Social Worker Expl anation Advance Directives and Living Will Power of Travelers' Aid Worker Latest Code Status on File Code Status [...] Documents on File Type Date Recorded Patient Psychotherapist Social Worker Expl anation ACP-Advance Directive ACP-Power of Travelers' Aid Worker Latest Code Status on File Code Status Date Activated Date Inactivated Comments Full Code 11/06/2019 12:37 PM 11/08/2019 9:35 PM Full Code 11/06/2019 7:02 AM 11/06/2019 12:22 PM Full Code 08/03/2019 5:57 PM 08/04/2019 5:09 PM Full Code 10/17/2018 1:23 AM 10/18/2018 8:29 PM Full Code 06/05/2018 7:30 AM 06/07/2018 7:14 PM Documents on File Type Date Recorded Patient Psychotherapist Social Worker Expl anation ACP-Advance Directive ACP-Power of Travelers' Aid Worker Latest Code Status on File Code Status [...] Documents on File Type Date Recorded Patient Psychotherapist Social Worker Expl anation Advance Directive(s) 09/12/2020 12:26 PM Documents on File Type Date Recorded Patient Psychotherapist Social Worker Expl anation Advance Directive(s) 09/12/2020 12:26 PM [...] Documents on File Type Date Recorded Patient Psychotherapist Social Worker Expl anation DNR (Do Not Resuscitate) 07/31/2024 3:36 PM [place] DNR Form Date Activated Date Inactivated Comments [...] Documents on File Type Date Recorded Patient Psychotherapist Social Worker Expl anation DNR (Do Not Resuscitate) 07/31/2024 3:36 PM [place] DNR Form Date Activated Date Inactivated Comments [...] Lower Extremity Venous Right Tani Joseph MD [address] [place] [address] Status Reason Specialty Diagnoses / Procedures Referre d By Contact Referred To Contact Closed Radiology Diagnoses Malignant neoplasm of exocervix (HCC) Procedures XA SPECIAL ANGIOGRAPHY PROCEDURE Ziyad Menendez MD [address] [facility] [place] [address] Status Reason Specialty Diagnoses / Procedures Referre d By Contact Referred To Contact Closed Radiology Diagnoses Malignant neoplasm of exocervix (HCC) Lung nodule seen on imaging study Procedures CT CHEST ABDOMEN PELVIS W CONTRAST Ziyad Menendez MD [address] [facility] [place] [address] Status Reason Specialty Diagnoses / Procedures Referre d By Contact Referred To Contact Open Radiology Diagnoses Abnormal CT of the chest Procedures CT Chest W Contrast Ziyad Menendez MD [address] [facility] [place] [address] Status Reason Specialty Diagnoses / Procedures Referred By Contact Referred To Contact Open Specialty Services Required Orthopedic Surgery Diagnoses Closed fracture of coccyx, initial encounter ([facility]) Lauren Lutz APRN - SHOE TURNER [address] [place] [address] [facility] [address] [address] [place] [address] Scheduling Instructions [facility] [address] [place] [address] Specialty Diagnoses / Procedures Referred By Lisa t Referred To Contact Pulmonary and Critical Care Medicine Diagnoses Panlobular emphysema (HCC) Chronic respiratory failure with hypoxia (HCC) Procedures CONSULT TO PULM/CRITICAL CARE OFFICE/OUTPATIENT [facility] 60-74 MINUTES Herminia Case MD [address] [place] [address] Referral ID Status Reason Start Date Expiration Date Visits Requested Visits Authorized [id number] Pending Review PCP Requested Referral 08/06/2021 08/06/2022 1 1 Specialty Diagnoses / Procedures Referred By Lisa t Referred To Contact BR IMAGING Diagnoses Encounter for screening mammogram for malignant neoplasm of breast Procedures PAOLO SCREENING W CARON SCREENING DIGITAL BREAST TOMOSYNTHESIS BI SCREENING MAMMOGRAPHY BI 2-VIEW BREAST INC CAD Herminia Case MD [address] [place] [address] [facility] [address] [place] [address] Referral ID Status Reason Start Date Expiration Date Visits Requested Visits Authorized [id number] Pending Review Auto-Generat ed Referral 08/06/2021 09/05/2022 1 1 Specialty Diagnoses / Procedures Referred By Contac t Referred To Contact Radiology Diagnoses Malignant neoplasm of exocervix (HCC) Abnormal chest CT Procedures CT Chest W Contrast Ziyad Menendez MD [address] [facility], [address] [place] [address] Referral ID Status Reason Start Date Expiration Date Visits Re quested Visits Authorized [id number] Closed 09/17/2021 09/17/2022 1 1 Specialty Diagnoses / Procedures Referred By Contac t Referred To Contact Gena Michaels APRN.SHOE TURNER [address] [place] [address] Referral ID Status Reason Start Date Expiration Date V isits Requested Visits Authorized [id number] Pending Review 1 1 Specialty Diagnoses / Procedures Referred By Contac t Referred To Contact Radiology Diagnoses Malignant neoplasm of exocervix (HCC) Procedures CT chest wo IV contrast Kisha Pepe APRN - [facility] [address] [facility] [address] [place] [address] Referral ID Status Reason Start Date Expiration Date V isits Requested Visits Authorized [id number] Pending Review 10/20/2022 04/18/2023 1 1 Specialty Diagnoses / Procedures Referred By Contac t Referred To Contact Diagnoses Family history of breast cancer Malignant neoplasm of exocervix (HCC) Procedures CONSULT TO MEDICAL GENETICS - CANCER MEDICAL GENETICS COUNSELING EACH 30 MINUTES Herminia Case MD [address] [place] [address] [facility] [address] [place] [address] Referral ID Status Reason Start Date Expiration Date Visits Requested Visits Authorized [id number] Pending Review PCP Requested Referral Auto-Generate d [...] venous access Ziyad Menendez MD [address] [facility] [place] [address] [facility] [address] [place] [address] Reason Comments Fall Elbow Pain Tailbone Pain [...] Chest W Contrast Ziyad Menendez MD [address] [facility] [place] [address] Referral ID Status Reason Start Date Expiration Date Visits Re quested Visits Authorized [id number] Closed 09/17/2021 09/17/2022 1 1 Reason Comments [...] intertrochanteric fracture of left femur, initial encounter ([facility]) Procedures . Raul Whipple DO [address] [place] [address] [facility] Telemetry [address] [place] [id number] Referral ID Status Reason Start Date Expiration Date Visits Re quested Visits Authorized [id number] 1 1 Reason Onset Date Comments Refill [...] encounter Lumbar compression fracture, closed, initial encounter ([facility]) Procedures . Lauren Serna MD [address] [facility] [address] [place] [address] [address] Referral ID Status Reason Start Date Expiration Date Visits Re quested Visits Authorized [id number] 1 1 Reason Onset Date Comments Refill [...] 08/20/2023 Reason Comments Electronic Communication FAX from [place] [facility] is going to be coming over that [...] fracture of L1 vertebra, initial encounter (HCC) Procedures r55 Nickolas Marrero MD [address] [place] [address] [facility] Cardiac P[facility] [address] [place] [address] Referral ID Status Reason Start Date Expiration Date Visits Re quested Visits Authorized [id number] 1 1 Reason Onset Date Comments Opened In Error 10/06/2023 Reason Comments Home Care Physical therapy del ayed 1 week Reason Onset Date Comments Home Care Management 10/06/2023 [facility]For cert dates 09/26/2023 - 11/24/2023 that were signed on 10/10/2023.[facility] home health 485 form / care plan [...] Laceration Specialty Diagnoses / Procedures Referred By Contac t Referred To Contact Diagnoses Fall, initial encounter Procedures [facility] [id number] ...[facility] Dual Complete active per [employer] eff 03/21/22 ...auth required ...pending auth ref# [id number] ...UM to fax clinical to [phone] Dianne Dale [address] [place] [address] [facility] Emergency Dept [address] [place] [address] Referral ID Status Reason Start Date Expiration Date Visits Re quested Visits Authorized [id number] 1 1 Reason Onset Date Comments Refill [...] Breath Specialty Diagnoses / Procedures Referred By Contac t Referred To Contact Diagnoses Adult failure to thrive Severe protein-calorie malnutrition (HCC) Closed supracondylar fracture of left humerus, initial encounter Procedures . Lauren Serna MD [address] [place] [address] Phone: tel: fax: [facility] Cardiac Progressive Care Unit PCU [address] [place] [address] Phone: tel: Referral ID Status Reason Start Date Expiration Date Visits Re quested Visits Authorized [id number] 1 1 Reason Comments Hospital Follow-up COPD,PSA/MSSA/STREP LRTIESTABLISH PULM OUTPATIENT... Reason Onset Date Comments Refill Request 08/18/2024 Reason Onset Date Comments Refill Request 08/22/2024 Reason Comments OP Infusion INFORMATION SOURCE (unrecogn ized section and content) DATE CREATED AUTHOR 10/12/2019 [facility] DATE CREATED AUTHOR AUTHOR'S ORGANIZ ATION 11/14/2019 [facility] DATE CREATED AUTHOR AUTHOR'S ORGANIZ ATION 06/13/2020 [facility] DATE CREATED AUTHOR AUTHOR'S ORGANIZ ATION 09/13/2020 [facility] DATE CREATED AUTHOR AUTHOR'S ORGANIZ ATION 12/19/2021 [facility] DATE CREATED AUTHOR AUTHOR'S ORGANIZ ATION 07/31/2024 [facility] DATE CREATED AUTHOR AUTHOR'S ORGANIZ ATION 10/20/2024 [facility] DATE CREATED AUTHOR AUTHOR'S ORGANIZ ATION 11/24/2024 [facility] Ordered Prescriptions (unrec [...] 81 mg, Oral, Daily, First dose on Tue11/08/22 at 0900, Do not crush, chew, or split. 0856 (Given - Provider: Austyn Bee RN) atorvastatin (Lipitor) tablet 40 mg 40 mg, Oral, Nightly, First dose on Tue11/06/22 at 2100 2100 (Given - Provider: Tona Barroso RN) 2105 (Given - Provider: Tona Barroso RN) buPROPion XL (Wellbutrin XL) 24 hr [...] On 11/06/22 at 1520, For 1 dose 153 (Given - Provider: Gwen Solorzano RN) QUEtiapine [...] Erna Sheldon RN - Reason: Patient not available)2108 (Given - Provider: Tona Barroso RN) 1009 [...] Sheldon RN)1615 (Given - Provider: Erna Sheldon RN)210 (Given - Provider: Tona Barroso RN) 031 (Given - Provider: Tona Barroso RN)1009 (Given [...] 2048 (Given - Provider: Kelsi Madden RN) 06 (Given - Provider: Tona Barroso RN) polyethylene [...] 2101 (Given - Provider: Vicente Enciso RN) 2105 [...] DE OLIVEIRA) 0923 (Given - Provider: Rimma Milsl RN) enoxaparin (Lovenox) syringe 40 mg 40 [...] on Tue02/16/23 at 2000, Indications: Asthma, COPD 2004 (Given - Provider: Kaylene Cifuentes RCP) 0940 (Not Given - Provider: Kate Stover RCP - Reason: Patient/family refused - Comment: pt did not feel the need fortx at this time)1300 (Not Given - Provider: Kate Stover [facility] - Reason: Patient/family refused - Comment: pt did not feel the need fortx at this time)210 (Not Given - Provider: Emanuel Le [facility] - Reason: Patient/family refused) 0820 (Given - Provider: Yesenia Salas [facility]) ipratropium-albuterol (Duo-Neb) 0.5-2.5 mg/3 mL nebulizer solution 3 mL 3 mL, Nebulization, 2 times daily, First dose (after last modification) on Tue02/18/23 at 2000, Indications: Asthma, COPD 1999 (Canceled Entry - Provider: Automatic Discharge Provider - Comment: Automatically canceled at discontinue of medication order) montelukast (Singulair) tablet 10 mg 10 mg, Oral, Nightly, First dose on Tue02/16/23 at 2100 2100 (Given - Provider: Vicente [...] Indications: Generalized Anxiety Disorder, Major Depressive Disorder 2099 (Given - Provider: Vicente Enciso RN) 2104 (Given - Provider: Cheryl Valdivia RN) 2099 (Canceled Entry - Provider: Automatic Discharge [...] at 1745 2101 (Given - Provider: Vicente Enciso, RN) 1120 (Given - Provider: ARMIN DE [...] PRN, wheezing, shortness of breath, Starting on 02/13/23 at 2323, Initiate RT Bronchodilator Protocol? Yes albuterol 108 (90 Base) MCG/ACT inhaler 2 puff 2 puff, Inhalation, Every 4 hours PRN, shortness of breath, Starting on Tue02/16/23 at 1735 cyclobenzaprine (Flexeril) tablet 10 mg 10 mg, Oral, 3 times daily PRN, muscle spasms, Starting on Tue02/14/23 at 0753 2306 (Given - Provider: Vicente Enciso, RN) 0922 (Given - Provider: Rimma Mills RN) Diclofenac Sodium (Voltaren) 1 % gel 4 g 4 g, Topical, PRN, as needed for pain on joints, Starting on Tue02/17/23 at 1620, Apply to affected areas. 2106 (Given - Provider: Cheryl Valdivia RN) HYDROcodone-acetaminophe n ([place]) 5-325 MG per tablet 1 tablet (CANCELED)(Linked Group 2) 1 tablet, Oral, Every 4 hours PRN, moderate pain (4-6), Starting on Tue02/17/23 at 0706, Maximum dose of acetaminophen is 4000 mg from all sources in 24 hours. 1000 (Given - Provider: ARMIN DE OLIVEIRA)1119 (Given - Provider: AMRIN DE OLIVEIRA) naloxone (Narcan) injection 0.4 mg 0.4 mg, IntraVENous, PRN, opioid reversal, Starting on Tue02/17/23 at 1542, For oversedation/difficult to rouse, pinpoint pupils, RR < 8; notify primary team business liaison officer if used ondansetron (Zofran) injection 4 mg(Linked [...] ARMIN DE OLIVEIRA)1841 (See Alternative - Provider: AMRIN DE OLIVEIRA) ondansetron ODT (Zofran-ODT) disintegrating tablet [...] Valdivia RN) 0921 (Given - Provider: Rimma Mills, CHARLEY)1534 (Given - Provider: Rimma Mills RN) polyethylene [...] IMG once PRN, R WRIST, Starting on Olga 02/17/23 at 0712, For 1 dose 0712 (Given [...] sources in 24 hours. Group 2: HYDROcodone-acetaminophen ([place]) 5-325 MG per tablet 1 tablet (CANCELED)Jump to med 1 tablet, Oral, Every 4 hours PRN, moderate pain (4-6), Starting on Olga 02/17/23 at 0706, Maximum dose of acetaminophen is 4000 mg from all sources in 24 hours. Or HYDROcodone-acetaminophen ([place]) 5-325 MG per tablet 2 tablet (CANCELED) 2 tablet, Oral, Every 4 hours PRN, severe pain (7-10), Starting on Olga 02/17/23 at 0706, Maximum [...] sodium chloride 0.9 % 250 mL IVPB (ADD-Butner) (COMPLETED) 500 mg, IntraVENous, Administer over 60 Minutes, Once, On 08/07/23 at 1520, For 1 dose, ADD-Butner bag, Suspected Indication (Select all that apply): Upper Respiratory Infection 2705 (New Bag - Prov ider: Carolyn Monson RN)1845 (Stopped - Provider: Carolyn Monson RN) cefTRIAXone (Rocephin) 1 g in sodium chloride 0.9 % 50 mL IVPB Mini-Bag Plus (COMPLETED) 1 g, IntraVENous, at 100 mL/hr, Administer over 30 Minutes, Once, On Tue08/07/23 at 1520, For 1 dose, Mini-Bag Plus bag, Suspected Indication (Select all that apply): Upper Respiratory Infection 1648 (New Bag - Prov ider: Marjorie Ponce RN)1718 (Stopped - Provider: Carolyn Monson RN) predniSONE (Deltasone) tablet 40 mg (COMPLETED) 40 mg, Oral, Once, On Tue08/07/23 at 1700, For 1 dose 1717 (Given [...] 2121 (Given - Provider: Maeve Ryan RN) 08 (Given - Provider: Jennifer Montes RN)1339 (Self [...] Vaughan RN) 0822 (Given - Provider: Jennifer Montes, RN) 0802 (Given - Provider: Phillip Dee, CHARLEY) busPIRone (Buspar) tablet 15 mg (CANCELED) 15 mg, Oral, 3 times daily, First dose on Tue09/20/23 at 2100 2122 (Given - Provider: Maeve Ryan, RN) 0822 (Given - Provider: Jennifer Montes, RN)1340 (Self Administered Via Pump - Provider: Jennifer Montes RN) busPIRone (Buspar) tablet 15 mg 15 mg, Oral, 2 times daily, First dose (after last modification) on Tue09/21/23 at 2100 2127 (Given - Provider: Maeve Ryan, CHARLEY) 0759 (Given - Provider: Phlilip Dee RN) calcitonin (Miacalcin) injection 50 Units [...] at 2100 2122 (Given - Provider: Maeve Ryan RN) [...] Suzette Davis RN)2121 (Given - Provider: Maeve Ryan RN) 2126 [...] refused) 0802 (Medication Applied - Provider: Phillip Dee, CHARLEY)1436 (Due: Medication Removed - Provider: Automatic Discharge Provider - Comment: Time automatically adjusted from order being discontinued) PARoxetine (Paxil) tablet 30 mg 30 mg, Oral, Daily, First dose (after last modification) on Tue09/21/23 at 0900 0822 (Given - Provider: Jennifer Montes RN) 0802 (Given - Provider: Phillip Dee RN) potassium chloride CR (Klor-Con M10) ER [...] chew. 1014 (Given - Provider: Jennifer Montes RN)8 (Given - Provider: Maeve Ryan, CHARLEY) potassium [...] Vaughan RN) 0825 (Given - Provider: Jennifer Montes, RN) 0805 (Given - Provider: Phillip Dee [...] sedation for opioid reversal - MUST notify business liaison officer provider immediately after first dose, may give [...] at 0749 1043 (Given - Provider: Deanna Vaughan RN)1729 (Given - Provider: Deanna Vaughan RN) [...] TransDERmal, Administer over 12 Hours, Once, On Tue10/16/23 at 1950, For 1 dose, Apply patch to back. Patch may remain in place for up to 12 hours in any 24 hour period. 2000 (Medication Linda lied - Provider: Ray Isaac RN)4751 (Due: Medication Removed - Provider: Automatic Discharge [...] 0748 (Given - Provider: Patsy Wynn, RN) clonazePAM (KlonoPIN) tablet 0.5 mg 0.5 [...] RN) 0754 (Given - Provider: Patsy Wynn, CHARLEY) fluticasone [...] RN) 0753 (Given - Provider: Patsy Wynn, CHARLEY) ipratropium-albuterol (Duo-Neb) 0.5-2.5 mg/3 mL nebulizer solution 3 mL 3 mL, Nebulization, 3 times daily, First dose on Tue05/21/22 at 0800 0952 (Given - Provider: Lorenzo Crawford RCP)1351 (Given - Provider: Shala Perry DEPUTY ASSESSOR)2030 (Given - Provider: Kaykay Ambriz RCP) 0840 [...] Swift RN) 0748 (Given - Provider: Patsy Wynn RN) sodium chloride 0.9% (NS) flush 5-40 [...] Hartley RN)1730 (Not Given - Provider: Nicole Swift, RN - Reason: Loss of IV access) 0530 (Not Given - Provider: Rocio Chaves LPN - Reason: Patient/family refused)1730 (Not Given - Provider: Nicole Swift, RN - Reason: Loss of IV access) [...] Wynn, CHARLEY)1429 (Given - Provider: Patsy Wynn, RN) polyethylene glycol (PEG) 3350 (Miralax) packet 17 g 17 g, Oral, Daily PRN, constipation, Starting on Tue05/21/22 at 0525, 1st line for treatment of constipation - give scheduled if no bowel movement in past 24 hours. 0946 (Given - Provider: Nicloe Swift RN) sodium chloride 0.9 % infusion [...] dose 0120 (Given - Provid er: Erna Cooper RN) sodium chloride 0.9 % bolus 1,000 mL (COMPLETED) 1,000 mL, IntraVENous, at 1,000 mL/hr, Administer over 1 Hours, Once, On Tue04/27/24 at 2350, For 1 dose 2358 (New Bag - Provider: Desiree Rangel RN) 0120 (Stopped - Provider: Erna Cooper RN) Scheduled Medication Order 08/06/2024 08/07/2024 08/08/2024 acetaminophen (Tylenol) tablet 650 mg 650 mg, Oral, 2 times daily, First dose on Tue07/31/24 at 1030, Maximum dose of acetaminophen is 4000 mg from all sources in 24 hours. 0841 (Given - Provider: Neelam Badillo, CHARLEY)2024 (Given - Provider: Waldemar Holbrook, RN) 09 (Given - Provider: Lizett Rizvi, RN)2038 (Given - Provider: Sadie Rodriguez RN) 1014 (Given - Provider: Gabriela Rosa RN) albuterol (2.5 MG/3ML) 0.083% nebulizer solution 2.5 mg 2.5 mg, Nebulization, 2 times daily, First dose on Tue08/04/24 at 0800, Initiate RT Bronchodilator Protocol? Yes 0911 (Given - Provider: DICK CrumpP)2028 (Given - Provider: DICK SpenceP) 0838 (Given - Provider: DICK GuyP)2026 (Given - Provider: Luz Pruett, HAND DRAWER IN) 0859 (Given - Provider: Kimber Alvarado DEPUTY ASSESSOR) aspirin EC tablet 81 mg 81 mg, Oral, Daily, First dose on Tue07/31/24 at 0900, Do not crush, chew, or split. 0841 (Given - Provider: Neelam Badillo RN) 0900 (Given - Provider: Lizett Rizvi RN) 0829 (Given - Provider: Gabriela Rosa RN) buPROPion XL (Wellbutrin XL) 24 hr [...] 2310 0842 (Given - Provider: Neelam Badillo RN)2025 (Given - Provider: Waldemar Holbrook RN) 0900 (Given - Provider: Lizett Rizvi RN)223 (Given - Provider: Sadie Rodriguez RN) 0829 [...] Rizvi, CHARLEY)1612 (New Bag - Provider: Lizett Rizvi RN)2031 [...] RN) 0839 (Not Given - Provider: Gabriela Rosa, CHARLEY - Reason: Patient/family refused) folic acid (Folvite) [...] RN) 0903 (Given - Provider: Lizett Rizvi RN)2038 (Given - Provider: Sadie Rodriguez RN) 0834 (Given - Provider: Gabriela Rosa, CHARLEY) montelukast (Singulair) tablet 10 mg 10 mg, Oral, Nightly, First dose on Tue07/30/24 at 2310 6 (Given - Provider: Waldemar Holbrook RN) 2051 (Given - Provider: Sadie Rodriguez RN) PARoxetine (Paxil) tablet 30 mg 30 mg, Oral, Every morning, First dose (after last modification) on Tue08/02/24 at 0900 0841 (Given - Provider: Neelam Bdaillo RN) 0859 (Given - Provider: Lizett Rizvi [...] 2 days 0841 (Given - Provider: Neelam Badillo RN) tiotropium (Spiriva Respimat) 2.5 MCG/ACT inhaler [...] Brasher RN)0856 (Given - Provider: Neelam Badillo, CHARLEY)1412 (Given - Provider: Neelam Badillo, CHARLEY)1851 (Given - Provider: Neelam Badillo, CHARLEY) 0046 (Given - Provider: Waldemar Holbrook RN)0515 (Given - Provider: Waldemar Holbrook RN)0914 (Given - Provider: Lizett Rizvi, CHARLEY)1325 (Given - Provider: Lizett Rizvi, CHARLEY)1743 (Given - Provider: Lizett Rizvi, RN)2239 (Given - Provider: Sadie Rodriguez RN) 0829 (Given - Provider: Gabriela Rosa, CHARLEY)1342 (Given - Provider: Gabriela Rosa, CHARLEY) naloxone (Narcan) injection 0.4 mg 0.4 mg, IntraVENous, Every 5 min PRN, opioid reversal, respiratory depression, Starting on Tue07/30/24 at 2308, +++ For RR <10, pinpoint pupils, over sedation for opioid reversal - MUST notify business liaison officer provider immediately after first dose, may give [...] - Provider: Sadie Rodriguez RN) sodium chloride ([place]) 0.65 % nasal spray 2 spray 2 [...] 8 hours PRN, nausea, vomiting, Starting on 07/30/24 at 2312, 1st Line. If inadequate response [...] or prosecute any alcohol or drug abuse patient.[facility] Hospital[facility] the event this information is protected by the Federal Confidentiality of Alcohol and Drug Abuse Patient Records regulations: The Federal rules restrict any use of the information to criminally investigate or prosecute any alcohol or drug abuse patient.[facility] HospitalIn the event this information is protected by the Federal Confidentiality of Alcohol and Drug Abuse Patient Records regulations: The Federal rules restrict any use of the information to criminally investigate or prosecute any alcohol or drug abuse patient.[facility] HospitalIn the event this information is protected by the Federal Confidentiality of Alcohol and Drug Abuse Patient Records regulations: The Federal rules restrict any use of the information to criminally investigate or prosecute any alcohol or drug abuse patient.[facility] Hospital[facility] the event this information is protected by the Federal Confidentiality of Alcohol and Drug Abuse Patient Records regulations: The Federal rules restrict any use of the information to criminally investigate or prosecute any alcohol or drug abuse patient.[facility] HospitalIn the event this information is protected by the Federal Confidentiality of Alcohol and Drug Abuse Patient Records regulations: The Federal rules restrict any use of the information to criminally investigate or prosecute any alcohol or drug abuse patient.[facility] HospitalIn the event this information is protected by the Federal Confidentiality of Alcohol and Drug Abuse Patient Records regulations: The Federal rules restrict any use of the information to criminally investigate or prosecute any alcohol or drug abuse patient.[facility] HospitalIn the event this information is protected by the Federal Confidentiality of Alcohol and Drug Abuse Patient Records regulations: The Federal rules restrict any use of the information to criminally investigate or prosecute any alcohol or drug abuse patient.[facility] HospitalIn the event this information is protected by the Federal Confidentiality of Alcohol and Drug Abuse Patient Records regulations: The Federal rules restrict any use of the information to criminally investigate or prosecute any alcohol or drug abuse patient.[facility] HospitalIn the event this information is protected by the Federal Confidentiality of Alcohol and Drug Abuse Patient Records regulations: The Federal rules restrict any use of the information to criminally investigate or prosecute any alcohol or drug abuse patient.[facility] HospitalIn the event this information is protected by the Federal Confidentiality of Alcohol and Drug Abuse Patient Records regulations: The Federal rules restrict any use of the information to criminally investigate or prosecute any alcohol or drug abuse patient.[facility] HospitalIn the event this information is protected by the Federal Confidentiality of Alcohol and Drug Abuse Patient Records regulations: The Federal rules restrict any use of the information to criminally investigate or prosecute any alcohol or drug abuse patient.[facility] HospitalIn the event this information is protected by the Federal Confidentiality of Alcohol and Drug Abuse Patient Records regulations: The Federal rules restrict any use of the information to criminally investigate or prosecute any alcohol or drug abuse patient.[facility] HospitalIn the event this information is protected by the Federal Confidentiality of Alcohol and Drug Abuse Patient Records regulations: The Federal rules restrict any use of the information to criminally investigate or prosecute any alcohol or drug abuse patient.[facility] HospitalIn the event this information is protected by the Federal Confidentiality of Alcohol and Drug Abuse Patient Records regulations: The Federal rules restrict any use of the information to criminally investigate or prosecute any alcohol or drug abuse patient.[facility] HospitalIn the event this information is protected by the Federal Confidentiality of Alcohol and Drug Abuse Patient Records regulations: The Federal rules restrict any use of the information to criminally investigate or prosecute any alcohol or drug abuse patient.[facility] HospitalIn the event this information is protected by the Federal Confidentiality of Alcohol and Drug Abuse Patient Records regulations: The Federal rules restrict any use of the information to criminally investigate or prosecute any alcohol or drug abuse patient.[facility] HospitalIn the event this information is protected by the Federal Confidentiality of Alcohol and Drug Abuse Patient Records regulations: The Federal rules restrict any use of the information to criminally investigate or prosecute any alcohol or drug abuse patient.[facility] HospitalIn the event this information is protected by the Federal Confidentiality of Alcohol and Drug Abuse Patient Records regulations: The Federal rules restrict any use of the information to criminally investigate or prosecute any alcohol or drug abuse patient.[facility] HospitalIn the event this information is protected by the Federal Confidentiality of Alcohol and Drug Abuse Patient Records regulations: The Federal rules restrict any use of the information to criminally investigate or prosecute any alcohol or drug abuse patient.[facility] HospitalIn the event this information is protected by the Federal Confidentiality of Alcohol and Drug Abuse Patient Records regulations: The Federal rules restrict any use of the information to criminally investigate or prosecute any alcohol or drug abuse patient.[facility] HospitalIn the event this information is protected by the Federal Confidentiality of Alcohol and Drug Abuse Patient Records regulations: The Federal rules restrict any use of the information to criminally investigate or prosecute any alcohol or drug abuse patient.[facility] HospitalIn the event this information is protected by the Federal Confidentiality of Alcohol and Drug Abuse Patient Records regulations: The Federal rules restrict any use of the information to criminally investigate or prosecute any alcohol or drug abuse patient.[facility] HospitalIn the event this information is protected by the Federal Confidentiality of Alcohol and Drug Abuse Patient Records regulations: The Federal rules restrict any use of the information to criminally investigate or prosecute any alcohol or drug abuse patient.[facility] HospitalIn the event this information is protected by the Federal Confidentiality of Alcohol and Drug Abuse Patient Records regulations: The Federal rules restrict any use of the information to criminally investigate or prosecute any alcohol or drug abuse patient.[facility] HospitalIn the event this information is protected by the Federal Confidentiality of Alcohol and Drug Abuse Patient Records regulations: The Federal rules restrict any use of the information to criminally investigate or prosecute any alcohol or drug abuse patient.[facility] HospitalIn the event this information is protected by the Federal Confidentiality of Alcohol and Drug Abuse Patient Records regulations: The Federal rules restrict any use of the information to criminally investigate or prosecute any alcohol or drug abuse patient.[facility] HospitalIn the event this information is protected by the Federal Confidentiality of Alcohol and Drug Abuse Patient Records regulations: The Federal rules restrict any use of the information to criminally investigate or prosecute any alcohol or drug abuse patient.[facility] HospitalIn the event this information is protected by the Federal Confidentiality of Alcohol and Drug Abuse Patient Records regulations: The Federal rules restrict any use of the information to criminally investigate or prosecute any alcohol or drug abuse patient.[facility] HospitalIn the event this information is protected by the Federal Confidentiality of Alcohol and Drug Abuse Patient Records regulations: The Federal rules restrict any use of the information to criminally investigate or prosecute any alcohol or drug abuse patient.[facility] HospitalIn the event this information is protected by the Federal Confidentiality of Alcohol and Drug Abuse Patient Records regulations: The Federal rules restrict any use of the information to criminally investigate or prosecute any alcohol or drug abuse patient.[facility] HospitalIn the event this information is protected by the Federal Confidentiality of Alcohol and Drug Abuse Patient Records regulations: The Federal rules restrict any use of the information to criminally investigate or prosecute any alcohol or drug abuse patient.[facility] HospitalIn the event this information is protected by the Federal Confidentiality of Alcohol and Drug Abuse Patient Records regulations: The Federal rules restrict any use of the information to criminally investigate or prosecute any alcohol or drug abuse patient.[facility] HospitalIn the event this information is protected by the Federal Confidentiality of Alcohol and Drug Abuse Patient Records regulations: The Federal rules restrict any use of the information to criminally investigate or prosecute any alcohol or drug abuse patient.[facility] HospitalIn the event this information is protected by the Federal Confidentiality of Alcohol and Drug Abuse Patient Records regulations: The Federal rules restrict any use of the information to criminally investigate or prosecute any alcohol or drug abuse patient.[facility] HospitalIn the event this information is protected by the Federal Confidentiality of Alcohol and Drug Abuse Patient Records regulations: The Federal rules restrict any use of the information to criminally investigate or prosecute any alcohol or drug abuse patient.[facility] HospitalIn the event this information is protected by the Federal Confidentiality of Alcohol and Drug Abuse Patient Records regulations: The Federal rules restrict any use of the information to criminally investigate or prosecute any alcohol or drug abuse patient.[facility] HospitalIn the event this information is protected by the Federal Confidentiality of Alcohol and Drug Abuse Patient Records regulations: The Federal rules restrict any use of the information to criminally investigate or prosecute any alcohol or drug abuse patient.[facility] HospitalIn the event this information is protected by the Federal Confidentiality of Alcohol and Drug Abuse Patient Records regulations: The Federal rules restrict any use of the information to criminally investigate or prosecute any alcohol or drug abuse patient.[facility] HospitalIn the event this information is protected by the Federal Confidentiality of Alcohol and Drug Abuse Patient Records regulations: The Federal rules restrict any use of the information to criminally investigate or prosecute any alcohol or drug abuse patient.[facility] HospitalIn the event this information is protected by the Federal Confidentiality of Alcohol and Drug Abuse Patient Records regulations: The Federal rules restrict any use of the information to criminally investigate or prosecute any alcohol or drug abuse patient.[facility] HospitalIn the event this information is protected by the Federal Confidentiality of Alcohol and Drug Abuse Patient Records regulations: The Federal rules restrict any use of the information to criminally investigate or prosecute any alcohol or drug abuse patient.[facility] HospitalIn the event this information is protected by the Federal Confidentiality of Alcohol and Drug Abuse Patient Records regulations: The Federal rules restrict any use of the information to criminally investigate or prosecute any alcohol or drug abuse patient.[facility] HospitalIn the event this information is protected by the Federal Confidentiality of Alcohol and Drug Abuse Patient Records regulations: The Federal rules restrict any use of the information to criminally investigate or prosecute any alcohol or drug abuse patient.[facility] HospitalIn the event this information is protected by the Federal Confidentiality of Alcohol and Drug Abuse Patient Records regulations: The Federal rules restrict any use of the information to criminally investigate or prosecute any alcohol or drug abuse patient.[facility] HospitalIn the event this information is protected by the Federal Confidentiality of Alcohol and Drug Abuse Patient Records regulations: The Federal rules restrict any use of the information to criminally investigate or prosecute any alcohol or drug abuse patient.[facility] HospitalIn the event this information is protected by the Federal Confidentiality of Alcohol and Drug Abuse Patient Records regulations: The Federal rules restrict any use of the information to criminally investigate or prosecute any alcohol or drug abuse patient.[facility] HospitalIn the event this information is protected by the Federal Confidentiality of Alcohol and Drug Abuse Patient Records regulations: The Federal rules restrict any use of the information to criminally investigate or prosecute any alcohol or drug abuse patient.[facility] HospitalIn the event this information is protected by the Federal Confidentiality of Alcohol and Drug Abuse Patient Records regulations: The Federal rules restrict any use of the information to criminally investigate or prosecute any alcohol or drug abuse patient.[facility] HospitalIn the event this information is protected by the Federal Confidentiality of Alcohol and Drug Abuse Patient Records regulations: The Federal rules restrict any use of the information to criminally investigate or prosecute any alcohol or drug abuse patient.[facility] HospitalIn the event this information is protected by the Federal Confidentiality of Alcohol and Drug Abuse Patient Records regulations: The Federal rules restrict any use of the information to criminally investigate or prosecute any alcohol or drug abuse patient.[facility] HospitalIn the event this information is protected by the Federal Confidentiality of Alcohol and Drug Abuse Patient Records regulations: The Federal rules restrict any use of the information to criminally investigate or prosecute any alcohol or drug abuse patient.[facility] HospitalIn the event this information is protected by the Federal Confidentiality of Alcohol and Drug Abuse Patient Records regulations: The Federal rules restrict any use of the information to criminally investigate or prosecute any alcohol or drug abuse patient.[facility] HospitalIn the event this information is protected by the Federal Confidentiality of Alcohol and Drug Abuse Patient Records regulations: The Federal rules restrict any use of the information to criminally investigate or prosecute any alcohol or drug abuse patient.[facility] HospitalIn the event this information is protected by the Federal Confidentiality of Alcohol and Drug Abuse Patient Records regulations: The Federal rules restrict any use of the information to criminally investigate or prosecute any alcohol or drug abuse patient.[facility] HospitalIn the event this information is protected by the Federal Confidentiality of Alcohol and Drug Abuse Patient Records regulations: The Federal rules restrict any use of the information to criminally investigate or prosecute any alcohol or drug abuse patient.[facility] HospitalIn the event this information is protected by the Federal Confidentiality of Alcohol and Drug Abuse Patient Records regulations: The Federal rules restrict any use of the information to criminally investigate or prosecute any alcohol or drug abuse patient.[facility] HospitalIn the event this information is protected by the Federal Confidentiality of Alcohol and Drug Abuse Patient Records regulations: The Federal rules restrict any use of the information to criminally investigate or prosecute any alcohol or drug abuse patient.[facility] HospitalIn the event this information is protected by the Federal Confidentiality of Alcohol and Drug Abuse Patient Records regulations: The Federal rules restrict any use of the information to criminally investigate or prosecute any alcohol or drug abuse patient.[facility] HospitalIn the event this information is protected by the Federal Confidentiality of Alcohol and Drug Abuse Patient Records regulations: The Federal rules restrict any use of the information to criminally investigate or prosecute any alcohol or drug abuse patient.[facility] HospitalIn the event this information is protected by the Federal Confidentiality of Alcohol and Drug Abuse Patient Records regulations: The Federal rules restrict any use of the information to criminally investigate or prosecute any alcohol or drug abuse patient.[facility] HospitalIn the event this information is protected by the Federal Confidentiality of Alcohol and Drug Abuse Patient Records regulations: The Federal rules restrict any use of the information to criminally investigate or prosecute any alcohol or drug abuse patient.[facility] HospitalIn the event this information is protected by the Federal Confidentiality of Alcohol and Drug Abuse Patient Records regulations: The Federal rules restrict any use of the information to criminally investigate or prosecute any alcohol or drug abuse patient.[facility] HospitalIn the event this information is protected by the Federal Confidentiality of Alcohol and Drug Abuse Patient Records regulations: The Federal rules restrict any use of the information to criminally investigate or prosecute any alcohol or drug abuse patient.[facility] HospitalIn the event this information is protected by the Federal Confidentiality of Alcohol and Drug Abuse Patient Records regulations: The Federal rules restrict any use of the information to criminally investigate or prosecute any alcohol or drug abuse patient.[facility] HospitalIn the event this information is protected by the Federal Confidentiality of Alcohol and Drug Abuse Patient Records regulations: The Federal rules restrict any use of the information to criminally investigate or prosecute any alcohol or drug abuse patient.[facility] HospitalIn the event this information is protected by the Federal Confidentiality of Alcohol and Drug Abuse Patient Records regulations: The Federal rules restrict any use of the information to criminally investigate or prosecute any alcohol or drug abuse patient.[facility] HospitalIn the event this information is protected by the Federal Confidentiality of Alcohol and Drug Abuse Patient Records regulations: The Federal rules restrict any use of the information to criminally investigate or prosecute any alcohol or drug abuse patient.[facility] HospitalIn the event this information is protected by the Federal Confidentiality of Alcohol and Drug Abuse Patient Records regulations: The Federal rules restrict any use of the information to criminally investigate or prosecute any alcohol or drug abuse patient.[facility] HospitalIn the event this information is protected by the Federal Confidentiality of Alcohol and Drug Abuse Patient Records regulations: The Federal rules restrict any use of the information to criminally investigate or prosecute any alcohol or drug abuse patient.[facility] HospitalIn the event this information is protected by the Federal Confidentiality of Alcohol and Drug Abuse Patient Records regulations: The Federal rules restrict any use of the information to criminally investigate or prosecute any alcohol or drug abuse patient.[facility] HospitalIn the event this information is protected by the Federal Confidentiality of Alcohol and Drug Abuse Patient Records regulations: The Federal rules restrict any use of the information to criminally investigate or prosecute any alcohol or drug abuse patient.[facility] HospitalIn the event this information is protected by the Federal Confidentiality of Alcohol and Drug Abuse Patient Records regulations: The Federal rules restrict any use of the information to criminally investigate or prosecute any alcohol or drug abuse patient.[facility] HospitalIn the event this information is protected by the Federal Confidentiality of Alcohol and Drug Abuse Patient Records regulations: The Federal rules restrict any use of the information to criminally investigate or prosecute any alcohol or drug abuse patient.[facility] HospitalIn the event this information is protected by the Federal Confidentiality of Alcohol and Drug Abuse Patient Records regulations: The Federal rules restrict any use of the information to criminally investigate or prosecute any alcohol or drug abuse patient.[facility] HospitalIn the event this information is protected by the Federal Confidentiality of Alcohol and Drug Abuse Patient Records regulations: The Federal rules restrict any use of the information to criminally investigate or prosecute any alcohol or drug abuse patient.[facility] HospitalIn the event this information is protected by the Federal Confidentiality of Alcohol and Drug Abuse Patient Records regulations: The Federal rules restrict any use of the information to criminally investigate or prosecute any alcohol or drug abuse patient.[facility] HospitalIn the event this information is protected by the Federal Confidentiality of Alcohol and Drug Abuse Patient Records regulations: The Federal rules restrict any use of the information to criminally investigate or prosecute any alcohol or drug abuse patient.[facility] HospitalIn the event this information is protected by the Federal Confidentiality of Alcohol and Drug Abuse Patient Records regulations: The Federal rules restrict any use of the information to criminally investigate or prosecute any alcohol or drug abuse patient.[facility] HospitalIn the event this information is protected by the Federal Confidentiality of Alcohol and Drug Abuse Patient Records regulations: The Federal rules restrict any use of the information to criminally investigate or prosecute any alcohol or drug abuse patient.[facility] HospitalIn the event this information is protected by the Federal Confidentiality of Alcohol and Drug Abuse Patient Records regulations: The Federal rules restrict any use of the information to criminally investigate or prosecute any alcohol or drug abuse patient.[facility] HospitalIn the event this information is protected by the Federal Confidentiality of Alcohol and Drug Abuse Patient Records regulations: The Federal rules restrict any use of the information to criminally investigate or prosecute any alcohol or drug abuse patient.[facility] HospitalIn the event this information is protected by the Federal Confidentiality of Alcohol and Drug Abuse Patient Records regulations: The Federal rules restrict any use of the information to criminally investigate or prosecute any alcohol or drug abuse patient.[facility] HospitalIn the event this information is protected by the Federal Confidentiality of Alcohol and Drug Abuse Patient Records regulations: The Federal rules restrict any use of the information to criminally investigate or prosecute any alcohol or drug abuse patient.[facility] HospitalIn the event this information is protected by the Federal Confidentiality of Alcohol and Drug Abuse Patient Records regulations: The Federal rules restrict any use of the information to criminally investigate or prosecute any alcohol or drug abuse patient.[facility] HospitalIn the event this information is protected by the Federal Confidentiality of Alcohol and Drug Abuse Patient Records regulations: The Federal rules restrict any use of the information to criminally investigate or prosecute any alcohol or drug abuse patient.[facility] HospitalIn the event this information is protected by the Federal Confidentiality of Alcohol and Drug Abuse Patient Records regulations: The Federal rules restrict any use of the information to criminally investigate or prosecute any alcohol or drug abuse patient.[facility] HospitalIn the event this information is protected by the Federal Confidentiality of Alcohol and Drug Abuse Patient Records regulations: The Federal rules restrict any use of the information to criminally investigate or prosecute any alcohol or drug abuse patient.[facility] HospitalIn the event this information is protected by the Federal Confidentiality of Alcohol and Drug Abuse Patient Records regulations: The Federal rules restrict any use of the information to criminally investigate or prosecute any alcohol or drug abuse patient.[facility] HospitalIn the event this information is protected by the Federal Confidentiality of Alcohol and Drug Abuse Patient Records regulations: The Federal rules restrict any use of the information to criminally investigate or prosecute any alcohol or drug abuse patient.[facility] HospitalIn the event this information is protected by the Federal Confidentiality of Alcohol and Drug Abuse Patient Records regulations: The Federal rules restrict any use of the information to criminally investigate or prosecute any alcohol or drug abuse patient.[facility] HospitalIn the event this information is protected by the Federal Confidentiality of Alcohol and Drug Abuse Patient Records regulations: The Federal rules restrict any use of the information to criminally investigate or prosecute any alcohol or drug abuse patient.[facility] HospitalIn the event this information is protected by the Federal Confidentiality of Alcohol and Drug Abuse Patient Records regulations: The Federal rules restrict any use of the information to criminally investigate or prosecute any alcohol or drug abuse patient.[facility] HospitalIn the event this information is protected by the Federal Confidentiality of Alcohol and Drug Abuse Patient Records regulations: The Federal rules restrict any use of the information to criminally investigate or prosecute any alcohol or drug abuse patient.[facility] HospitalIn the event this information is protected by the Federal Confidentiality of Alcohol and Drug Abuse Patient Records regulations: The Federal rules restrict any use of the information to criminally investigate or prosecute any alcohol or drug abuse patient.[facility] HospitalIn the event this information is protected by the Federal Confidentiality of Alcohol and Drug Abuse Patient Records regulations: The Federal rules restrict any use of the information to criminally investigate or prosecute any alcohol or drug abuse patient.[facility] HospitalIn the event this information is protected by the Federal Confidentiality of Alcohol and Drug Abuse Patient Records regulations: The Federal rules restrict any use of the information to criminally investigate or prosecute any alcohol or drug abuse patient.[facility] HospitalIn the event this information is protected by the Federal Confidentiality of Alcohol and Drug Abuse Patient Records regulations: The Federal rules restrict any use of the information to criminally investigate or prosecute any alcohol or drug abuse patient.[facility] HospitalIn the event this information is protected by the Federal Confidentiality of Alcohol and Drug Abuse Patient Records regulations: The Federal rules restrict any use of the information to criminally investigate or prosecute any alcohol or drug abuse patient.[facility] HospitalIn the event this information is protected by the Federal Confidentiality of Alcohol and Drug Abuse Patient Records regulations: The Federal rules restrict any use of the information to criminally investigate or prosecute any alcohol or drug abuse patient.[facility] HospitalIn the event this information is protected by the Federal Confidentiality of Alcohol and Drug Abuse Patient Records regulations: The Federal rules restrict any use of the information to criminally investigate or prosecute any alcohol or drug abuse patient.[facility] HospitalIn the event this information is protected by the Federal Confidentiality of Alcohol and Drug Abuse Patient Records regulations: The Federal rules restrict any use of the information to criminally investigate or prosecute any alcohol or drug abuse patient.[facility] HospitalIn the event this information is protected by the Federal Confidentiality of Alcohol and Drug Abuse Patient Records regulations: The Federal rules restrict any use of the information to criminally investigate or prosecute any alcohol or drug abuse patient.[facility] HospitalIn the event this information is protected by the Federal Confidentiality of Alcohol and Drug Abuse Patient Records regulations: The Federal rules restrict any use of the information to criminally investigate or prosecute any alcohol or drug abuse patient.[facility] HospitalIn the event this information is protected by the Federal Confidentiality of Alcohol and Drug Abuse Patient Records regulations: The Federal rules restrict any use of the information to criminally investigate or prosecute any alcohol or drug abuse patient.[facility] HospitalIn the event this information is protected by the Federal Confidentiality of Alcohol and Drug Abuse Patient Records regulations: The Federal rules restrict any use of the information to criminally investigate or prosecute any alcohol or drug abuse patient.[facility] HospitalIn the event this information is protected by the Federal Confidentiality of Alcohol and Drug Abuse Patient Records regulations: The Federal rules restrict any use of the information to criminally investigate or prosecute any alcohol or drug abuse patient.[facility] HospitalIn the event this information is protected by the Federal Confidentiality of Alcohol and Drug Abuse Patient Records regulations: The Federal rules restrict any use of the information to criminally investigate or prosecute any alcohol or drug abuse patient.[facility] HospitalIn the event this information is protected by the Federal Confidentiality of Alcohol and Drug Abuse Patient Records regulations: The Federal rules restrict any use of the information to criminally investigate or prosecute any alcohol or drug abuse patient.[facility] HospitalIn the event this information is protected by the Federal Confidentiality of Alcohol and Drug Abuse Patient Records regulations: The Federal rules restrict any use of the information to criminally investigate or prosecute any alcohol or drug abuse patient.[facility] HospitalIn the event this information is protected by the Federal Confidentiality of Alcohol and Drug Abuse Patient Records regulations: The Federal rules restrict any use of the information to criminally investigate or prosecute any alcohol or drug abuse patient.[facility] HospitalIn the event this information is protected by the Federal Confidentiality of Alcohol and Drug Abuse Patient Records regulations: The Federal rules restrict any use of the information to criminally investigate or prosecute any alcohol or drug abuse patient.[facility] HospitalIn the event this information is protected by the Federal Confidentiality of Alcohol and Drug Abuse Patient Records regulations: The Federal rules restrict any use of the information to criminally investigate or prosecute any alcohol or drug abuse patient.[facility] HospitalIn the event this information is protected by the Federal Confidentiality of Alcohol and Drug Abuse Patient Records regulations: The Federal rules restrict any use of the information to criminally investigate or prosecute any alcohol or drug abuse patient.[facility] HospitalIn the event this information is protected by the Federal Confidentiality of Alcohol and Drug Abuse Patient Records regulations: The Federal rules restrict any use of the information to criminally investigate or prosecute any alcohol or drug abuse patient.[facility] HospitalIn the event this information is protected by the Federal Confidentiality of Alcohol and Drug Abuse Patient Records regulations: The Federal rules restrict any use of the information to criminally investigate or prosecute any alcohol or drug abuse patient.[facility] HospitalIn the event this information is protected by the Federal Confidentiality of Alcohol and Drug Abuse Patient Records regulations: The Federal rules restrict any use of the information to criminally investigate or prosecute any alcohol or drug abuse patient.[facility] HospitalIn the event this information is protected by the Federal Confidentiality of Alcohol and Drug Abuse Patient Records regulations: The Federal rules restrict any use of the information to criminally investigate or prosecute any alcohol or drug abuse patient.[facility] HospitalIn the event this information is protected by the Federal Confidentiality of Alcohol and Drug Abuse Patient Records regulations: The Federal rules restrict any use of the information to criminally investigate or prosecute any alcohol or drug abuse patient.[facility] HospitalIn the event this information is protected by the Federal Confidentiality of Alcohol and Drug Abuse Patient Records regulations: The Federal rules restrict any use of the information to criminally investigate or prosecute any alcohol or drug abuse patient.[facility] HospitalIn the event this information is protected by the Federal Confidentiality of Alcohol and Drug Abuse Patient Records regulations: The Federal rules restrict any use of the information to criminally investigate or prosecute any alcohol or drug abuse patient.[facility] HospitalIn the event this information is protected by the Federal Confidentiality of Alcohol and Drug Abuse Patient Records regulations: The Federal rules restrict any use of the information to criminally investigate or prosecute any alcohol or drug abuse patient.[facility] HospitalIn the event this information is protected by the Federal Confidentiality of Alcohol and Drug Abuse Patient Records regulations: The Federal rules restrict any use of the information to criminally investigate or prosecute any alcohol or drug abuse patient.[facility] HospitalIn the event this information is protected by the Federal Confidentiality of Alcohol and Drug Abuse Patient Records regulations: The Federal rules restrict any use of the information to criminally investigate or prosecute any alcohol or drug abuse patient.[facility] HospitalIn the event this information is protected by the Federal Confidentiality of Alcohol and Drug Abuse Patient Records regulations: The Federal rules restrict any use of the information to criminally investigate or prosecute any alcohol or drug abuse patient.[facility] HospitalIn the event this information is protected by the Federal Confidentiality of Alcohol and Drug Abuse Patient Records regulations: The Federal rules restrict any use of the information to criminally investigate or prosecute any alcohol or drug abuse patient.[facility] HospitalIn the event this information is protected by the Federal Confidentiality of Alcohol and Drug Abuse Patient Records regulations: The Federal rules restrict any use of the information to criminally investigate or prosecute any alcohol or drug abuse patient.[facility] HospitalIn the event this information is protected by the Federal Confidentiality of Alcohol and Drug Abuse Patient Records regulations: The Federal rules restrict any use of the information to criminally investigate or prosecute any alcohol or drug abuse patient.[facility] HospitalIn the event this information is protected by the Federal Confidentiality of Alcohol and Drug Abuse Patient Records regulations: The Federal rules restrict any use of the information to criminally investigate or prosecute any alcohol or drug abuse patient.[facility] HospitalIn the event this information is protected by the Federal Confidentiality of Alcohol and Drug Abuse Patient Records regulations: The Federal rules restrict any use of the information to criminally investigate or prosecute any alcohol or drug abuse patient.[facility] HospitalIn the event this information is protected by the Federal Confidentiality of Alcohol and Drug Abuse Patient Records regulations: The Federal rules restrict any use of the information to criminally investigate or prosecute any alcohol or drug abuse patient.[facility] HospitalIn the event this information is protected by the Federal Confidentiality of Alcohol and Drug Abuse Patient Records regulations: The Federal rules restrict any use of the information to criminally investigate or prosecute any alcohol or drug abuse patient.[facility] HospitalIn the event this information is protected by the Federal Confidentiality of Alcohol and Drug Abuse Patient Records regulations: The Federal rules restrict any use of the information to criminally investigate or prosecute any alcohol or drug abuse patient.[facility] HospitalIn the event this information is protected by the Federal Confidentiality of Alcohol and Drug Abuse Patient Records regulations: The Federal rules restrict any use of the information to criminally investigate or prosecute any alcohol or drug abuse patient.[facility] HospitalIn the event this information is protected by the Federal Confidentiality of Alcohol and Drug Abuse Patient Records regulations: The Federal rules restrict any use of the information to criminally investigate or prosecute any alcohol or drug abuse patient.[facility] HospitalIn the event this information is protected by the Federal Confidentiality of Alcohol and Drug Abuse Patient Records regulations: The Federal rules restrict any use of the information to criminally investigate or prosecute any alcohol or drug abuse patient.[facility] HospitalIn the event this information is protected by the Federal Confidentiality of Alcohol and Drug Abuse Patient Records regulations: The Federal rules restrict any use of the information to criminally investigate or prosecute any alcohol or drug abuse patient.[facility] HospitalIn the event this information is protected by the Federal Confidentiality of Alcohol and Drug Abuse Patient Records regulations: The Federal rules restrict any use of the information to criminally investigate or prosecute any alcohol or drug abuse patient.[facility] HospitalIn the event this information is protected by the Federal Confidentiality of Alcohol and Drug Abuse Patient Records regulations: The Federal rules restrict any use of the information to criminally investigate or prosecute any alcohol or drug abuse patient.[facility] HospitalIn the event this information is protected by the Federal Confidentiality of Alcohol and Drug Abuse Patient Records regulations: The Federal rules restrict any use of the information to criminally investigate or prosecute any alcohol or drug abuse patient.[facility] HospitalIn the event this information is protected by the Federal Confidentiality of Alcohol and Drug Abuse Patient Records regulations: The Federal rules restrict any use of the information to criminally investigate or prosecute any alcohol or drug abuse patient.[facility] HospitalIn the event this information is protected by the Federal Confidentiality of Alcohol and Drug Abuse Patient Records regulations: The Federal rules restrict any use of the information to criminally investigate or prosecute any alcohol or drug abuse patient.[facility] HospitalIn the event this information is protected by the Federal Confidentiality of Alcohol and Drug Abuse Patient Records regulations: The Federal rules restrict any use of the information to criminally investigate or prosecute any alcohol or drug abuse patient.[facility] HospitalIn the event this information is protected by the Federal Confidentiality of Alcohol and Drug Abuse Patient Records regulations: The Federal rules restrict any use of the information to criminally investigate or prosecute any alcohol or drug abuse patient.[facility] HospitalIn the event this information is protected by the Federal Confidentiality of Alcohol and Drug Abuse Patient Records regulations: The Federal rules restrict any use of the information to criminally investigate or prosecute any alcohol or drug abuse patient.[facility] HospitalIn the event this information is protected by the Federal Confidentiality of Alcohol and Drug Abuse Patient Records regulations: The Federal rules restrict any use of the information to criminally investigate or prosecute any alcohol or drug abuse patient.[facility] HospitalIn the event this information is protected by the Federal Confidentiality of Alcohol and Drug Abuse Patient Records regulations: The Federal rules restrict any use of the information to criminally investigate or prosecute any alcohol or drug abuse patient.[facility] HospitalIn the event this information is protected by the Federal Confidentiality of Alcohol and Drug Abuse Patient Records regulations: The Federal rules restrict any use of the information to criminally investigate or prosecute any alcohol or drug abuse patient.[facility] HospitalIn the event this information is protected by the Federal Confidentiality of Alcohol and Drug Abuse Patient Records regulations: The Federal rules restrict any use of the information to criminally investigate or prosecute any alcohol or drug abuse patient.[facility] HospitalIn the event this information is protected by the Federal Confidentiality of Alcohol and Drug Abuse Patient Records regulations: The Federal rules restrict any use of the information to criminally investigate or prosecute any alcohol or drug abuse patient.[facility] HospitalIn the event this information is protected by the Federal Confidentiality of Alcohol and Drug Abuse Patient Records regulations: The Federal rules restrict any use of the information to criminally investigate or prosecute any alcohol or drug abuse patient.[facility] HospitalIn the event this information is protected by the Federal Confidentiality of Alcohol and Drug Abuse Patient Records regulations: The Federal rules restrict any use of the information to criminally investigate or prosecute any alcohol or drug abuse patient.[facility] HospitalIn the event this information is protected by the Federal Confidentiality of Alcohol and Drug Abuse Patient Records regulations: The Federal rules restrict any use of the information to criminally investigate or prosecute any alcohol or drug abuse patient.[facility] HospitalIn the event this information is protected by the Federal Confidentiality of Alcohol and Drug Abuse Patient Records regulations: The Federal rules restrict any use of the information to criminally investigate or prosecute any alcohol or drug abuse patient.[facility] HospitalIn the event this information is protected by the Federal Confidentiality of Alcohol and Drug Abuse Patient Records regulations: The Federal rules restrict any use of the information to criminally investigate or prosecute any alcohol or drug abuse patient.[facility] HospitalIn the event this information is protected by the Federal Confidentiality of Alcohol and Drug Abuse Patient Records regulations: The Federal rules restrict any use of the information to criminally investigate or prosecute any alcohol or drug abuse patient.[facility] HospitalIn the event this information is protected by the Federal Confidentiality of Alcohol and Drug Abuse Patient Records regulations: The Federal rules restrict any use of the information to criminally investigate or prosecute any alcohol or drug abuse patient.[facility] HospitalIn the event this information is protected by the Federal Confidentiality of Alcohol and Drug Abuse Patient Records regulations: The Federal rules restrict any use of the information to criminally investigate or prosecute any alcohol or drug abuse patient.[facility] HospitalIn the event this information is protected by the Federal Confidentiality of Alcohol and Drug Abuse Patient Records regulations: The Federal rules restrict any use of the information to criminally investigate or prosecute any alcohol or drug abuse patient.[facility] HospitalIn the event this information is protected by the Federal Confidentiality of Alcohol and Drug Abuse Patient Records regulations: The Federal rules restrict any use of the information to criminally investigate or prosecute any alcohol or drug abuse patient.[facility] Care Teams (unrecognized sec tion and content) 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 Relationship Specialty Start Date End Date Herminia Case MD [address] [place] [address] PCP - General Family Practice 12/12/18 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 Relationship Specialty Start Date End Date Herminia Case MD [address] [place] [address] PCP - General Family Practice 12/12/18 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 Relationship Specialty Start Date End Date Herminia Case MD [address] [place] [address] PCP - General Family Practice 12/12/18 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 Relationship Specialty Start Date End Date Herminia Case MD [address] [place] [address] PCP - General Family Practice 12/12/18 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 Relationship Specialty Start Date End Date Herminia Case MD [address] [place] [address] PCP - General Family Practice 12/12/18 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 Relationship Specialty Start Date End Date Herminia Case MD PCP - General 04/15/15 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 Relationship Specialty Start Date End Date Herminia Case MD PCP - General 04/15/15 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 Relationship Specialty Start Date End Date Herminia Case MD [address] [place] [address] PCP - General Family Practice 12/12/18 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 Relationship Specialty Start Date End Date Herminia Case MD [address] [place] [address] PCP - General Family Practice 12/12/18 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 Relationship Specialty Start Date End Date Herminia Case MD [address] [place] [address] PCP - General Family Practice 12/12/18 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 Relationship Specialty Start Date End Date Herminia Case MD [address] [place] [address] PCP - General Family Practice 12/12/18 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 Relationship Specialty Start Date End Date Herminia Case MD [address] [place] [address] PCP - General Family Medicine 12/12/18 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 Relationship Specialty Start Date End Date Herminia Case MD [address] [place] [address] PCP - General Family Medicine 12/12/18 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 Relationship Specialty Start Date End Date Herminia Case MD [address] [place] [address] PCP - General Family Medicine 12/12/18 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 Relationship Specialty Start Date End Date Herminia Case MD [address] [place] [address] PCP - General Family Medicine 12/12/18 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 Relationship Specialty Start Date End Date Herminia Case MD [address] [place] [address] PCP - General Family Medicine 12/12/18 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 Relationship Specialty Start Date End Date Herminia Case MD [address] [place] [address] PCP - General Family Medicine 12/12/18 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 Relationship Specialty Start Date End Date Herminia Case MD [address] [place] [address] PCP - General Family Medicine 12/12/18 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 Relationship Specialty Start Date End Date Herminia Case MD [address] [place] [address] PCP - General Family Medicine 12/12/18 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 Relationship Specialty Start Date End Date Herminia Case MD [address] [place] [address] PCP - General Family Medicine 12/12/18 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 Relationship Specialty Start Date End Date Herminia Case MD [address] [place] [address] PCP - General Family Medicine 12/12/18 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 Relationship Specialty Start Date End Date Herminia Case MD [address] [place] [address] PCP - General Family Medicine 12/12/18 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 Relationship Specialty Start Date End Date Herminia Case MD [address] [place] [address] PCP - General Family Medicine 12/12/18 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 Relationship Specialty Start Date End Date Herminia Case MD [address] [place] [address] PCP - General Family Medicine 12/12/18 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 Relationship Specialty Start Date End Date Herminia Case MD [address] [place] [address] PCP - General Family Medicine 12/12/18 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 Relationship Specialty Start Date End Date Herminia Case MD [address] [place] [address] PCP - General Family Medicine 12/12/18 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 Relationship Specialty Start Date End Date Herminia Case MD [address] [place] [address] PCP - General Family Medicine 12/12/18 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 Relationship Specialty Start Date End Date Herminia Case MD [address] [place] [address] PCP - General Family Medicine 12/12/18 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 Relationship Specialty Start Date End Date Herminia Case MD [address] [place] [address] PCP - General Family Medicine 12/12/18 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 Relationship Specialty Start Date End Date Herminia Case MD [address] [place] [address] PCP - General 04/15/15 Ziyad Menendez MD 161 [facility], [address] [place], [place] [id number] Consulting Physician Gynecologic Oncology 03/12/22 Sally Rocha, DB - NADEEM 161 [facility] [address] [place], [place] [id number] Nurse Practitioner Certified Nurse Practitioner 04/21/22 Kisha Pepe APRN - SHOE TURNER [address] [place] [address] [address] [place] [address] Nurse Practitioner Nurse Practitioner 10/20/22 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 Relationship Specialty Start Date End Date Herminia Case MD [address] [place] [address] PCP - General Family Medicine 12/12/18 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 Relationship Specialty Start Date End Date Herminia Case MD [address] [place], [place] [id number] PCP - General Family Medicine 12/12/18 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 Relationship Specialty Start Date End Date Herminia Case MD [address] [place], [place] [id number] PCP - General 04/15/15 Ziyad Menendez MD [address] [place] [address], [address] [place], [place] [id number] Consulting Physician Gynecologic Oncology 03/12/22 Sally Rocha SEED LABORATORY TECHNICIAN - SHOE TURNER [address] [place] [address] [address] [place] [address] Nurse Practitioner Certified Nurse Practitioner 04/21/22 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 - SHOE TURNER [address] [place] [address] [address] [place], [place] [id number] Nurse Practitioner Nurse Practitioner 10/20/22 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 Relationship Specialty Start Date End Date Herminia Case MD [address] [place], [place] [id number] PCP - General Family Medicine 12/12/18 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 Relationship Specialty Start Date End Date Herminia Case MD [address] [place] [address] PCP - General 04/15/15 Ziyad Menendez MD 161 [facility] [place] [address] Consulting Physician Gynecologic Oncology 03/12/22 Sally Rocha SEED LABORATORY TECHNICIAN - SHOE TURNER 161 [facility] [address] [place], [place] [id number] Nurse Practitioner Certified Nurse Practitioner 04/21/22 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 - SHOE TURNER 161 [facility] [address] [place], [place] [id number] Nurse Practitioner Nurse Practitioner 10/20/22 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 Relationship Specialty Start Date End Date Herminia Case MD [address] [place] [address] PCP - General Family Medicine 12/12/18 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 Relationship Specialty Start Date End Date Herminia Case MD [address] [place] [address] PCP - General Family Medicine 12/12/18 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 Relationship Specialty Start Date End Date Herminia Case MD [address] [place], [place] [id number] PCP - General Family Medicine 12/12/18 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 Relationship Specialty Start Date End Date Herminia Case MD [address] [place] [address] PCP - General Family Medicine 12/12/18 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 Relationship Specialty Start Date End Date Herminia Case MD [address] [place] [address] PCP - General Family Medicine 12/12/18 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 Relationship Specialty Start Date End Date Herminia Case MD [address] [place] [address] PCP - General Family Medicine 12/12/18 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 Relationship Specialty Start Date End Date Herminia Case MD [address] [place] [address] PCP - General Family Medicine 12/12/18 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 Relationship Specialty Start Date End Date Herminia Case MD [address] [place] [address] PCP - General Family Medicine 12/12/18 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 Relationship Specialty Start Date End Date Herminia Case MD [address] [place] [address] PCP - General Family Medicine 12/12/18 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 Relationship Specialty Start Date End Date Herminia Case MD [address] [place] [address] PCP - General Family Medicine 12/12/18 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 Relationship Specialty Start Date End Date Herminia Case MD [address] [place] [address] PCP - General Family Medicine 12/12/18 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 Relationship Specialty Start Date End Date Herminia Case MD [address] [place] [address] PCP - General 04/15/15 Ziyad Menendez MD 161 [facility] 298 [place] [address] Consulting Physician Gynecologic Oncology 03/12/22 Sally Rocha APRN - SHOE TURNER 161 [facility] 295 [place] [address] Nurse Practitioner Certified Nurse Practitioner 04/21/22 Kisha Pepe APRN - SHOE TURNER 161 [facility] 298 [place] [address] Nurse Practitioner Nurse Practitioner 10/20/22 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 Relationship Specialty Start Date End Date Herminia Case MD [address] [place] [address] PCP - General Family Medicine 12/12/18 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 Relationship Specialty Start Date End Date Herminia Case MD [address] [place] [address] PCP - General Family Medicine 12/12/18 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 Relationship Specialty Start Date End Date Herminia Case MD [address] [place] [address] PCP - General 04/15/15 Ziyad Menendez MD 161 [facility] [address] [place] [address] Consulting Physician Gynecologic Oncology 03/12/22 Sally Rocha, SEED LABORATORY TECHNICIAN - SHOE TURNER 161 [facility] 295 [place] [address] Nurse Practitioner Certified Nurse Practitioner 04/21/22 Kisha Pepe APRN - SHOE TURNER [address] [address] Nurse Practitioner Nurse Practitioner 10/20/22 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 Relationship Specialty Start Date End Date Herminia Case MD [address] [place] [address] PCP - General Family Medicine 12/12/18 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 Relationship Specialty Start Date End Date Herminia Case MD [address] [place] [address] PCP - General Family Medicine 12/12/18 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 Relationship Specialty Start Date End Date Herminia Case MD [address] [place] [address] PCP - General Family Medicine 12/12/18 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 Relationship Specialty Start Date End Date Herminia Case MD [address] [place] [address] PCP - General Family Medicine 12/12/18 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 Relationship Specialty Start Date End Date Herminia Case MD [address] [place] [address] PCP - General Family Medicine 12/12/18 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 Relationship Specialty Start Date End Date Herminia Case MD [address] [place] [address] PCP - General Family Medicine 12/12/18 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 Relationship Specialty Start Date End Date Herminia Case MD [address] [place] [address] PCP - General Family Medicine 12/12/18 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 Relationship Specialty Start Date End Date Herminia Case MD [address] [place] [address] PCP - General Family Medicine 12/12/18 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 Relationship Specialty Start Date End Date Herminia Case MD [address] [place] [address] PCP - General Family Medicine 12/12/18 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 Relationship Specialty Start Date End Date Herminia Case MD [address] [place] [address] PCP - General Family Medicine 12/12/18 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 Relationship Specialty Start Date End Date Herminia Case MD [address] [place] [address] PCP - General Family Medicine 12/12/18 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 Relationship Specialty Start Date End Date Herminia Case MD [address] [place] [address] PCP - General 04/15/15 Ziyad Menendez MD 161 [facility] 295 [place] [address] Consulting Physician Gynecologic Oncology 03/12/22 Sally Rocha APRN - SHOE TURNER 161 [address] [facility] [address] [place] [address] Nurse Practitioner Certified Nurse Practitioner 04/21/22 Kisha Pepe APRN - SHOE TURNER 161 [facility] 298 [place] [address] Nurse Practitioner Nurse Practitioner 10/20/22 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 Relationship Specialty Start Date End Date Herminia Case MD [address] [place] [address] PCP - General Family Medicine 12/12/18 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 Relationship Specialty Start Date End Date Herminia Case MD [address] [place] [address] PCP - General Family Medicine 12/12/18 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 Relationship Specialty Start Date End Date Herminia Case MD [address] [place] [address] PCP - General 04/15/15 Ziyad Menendez MD 161 [facility] 295 [place] [address] Consulting Physician Gynecologic Oncology 03/12/22 Sally Rocha SEED LABORATORY TECHNICIAN - SHOE TURNER 161 [facility] 295 [place] [address] Nurse Practitioner Certified Nurse Practitioner 04/21/22 Kisha Pepe, SEED LABORATORY TECHNICIAN - SHOE TURNER 161 [facility] [address] [place] [address] Nurse Practitioner Nurse Practitioner 10/20/22 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 Relationship Specialty Start Date End Date Herminia Case MD [address] [place] [address] PCP - General Family Medicine 12/12/18 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 Relationship Specialty Start Date End Date Herminia Case MD [address] [place] [address] PCP - General 04/15/15 Ziyad Menendez MD [address] [place] [address] 295 [place] [address] Consulting Physician Gynecologic Oncology 03/12/22 Sally Rocha, SEED LABORATORY TECHNICIAN - SHOE TURNER [address] [place] [address] 295 [place] [address] Nurse Practitioner Certified Nurse Practitioner 04/21/22 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 - SHOE TURNER [address] [place] [address] [address] [place] [address] Nurse Practitioner Nurse Practitioner 10/20/22 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 Relationship Specialty Start Date End Date Herminia Case MD [address] [place] [address] PCP - General Family Medicine 12/12/18 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 Relationship Specialty Start Date End Date Herminia Case MD [address] [place] [address] PCP - General 04/15/15 Ziyad Menendez MD 161 [facility], [address] [place] [address] Consulting Physician Gynecologic Oncology 03/12/22 Sally Rocha, SEED LABORATORY TECHNICIAN - SHOE TURNER 161 [facility] [address] [place] [address] Nurse Practitioner Certified Nurse Practitioner 04/21/22 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 Relationship Specialty Start Date End Date Herminia Case MD [address] [place] [address] PCP - General 04/15/15 Ziyad Menendez MD 161 [facility] [place] [address] Consulting Physician Gynecologic Oncology 03/12/22 Sally Rocha, SEED LABORATORY TECHNICIAN - SHOE TURNER 161 [facility] [address] [place] [address] Nurse Practitioner Certified Nurse Practitioner 04/21/22 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 Relationship Specialty Start Date End Date Herminia Case MD [address] [place] [address] PCP - General Family Medicine 12/12/18 Melva Juárez PA-C [address] [place] [address] [facility] 02/26/24 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 Relationship Specialty Start Date End Date Herminia Case MD [address] [place] [address] PCP - General Family Medicine 12/12/18 Melva Juárez PA-C [address] [place] [address] [facility] 02/26/24 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 Relationship Specialty Start Date End Date Herminia Case MD [address] [place] [address] PCP - General Family Medicine 12/12/18 Melva Juárez PA-C [address] [place] [address] [facility] 02/26/24 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 Relationship Specialty Start Date End Date Herminia Case MD [address] [place] [address] PCP - General Family Medicine 12/12/18 Melva Juárez PA-C [address] [place] [address] [facility] 02/26/24 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 Relationship Specialty Start Date End Date Herminia Case MD [address] [place] [address] PCP - General Family Medicine 12/12/18 Melva Juárez PA-C [address] [place] [address] [facility] 02/26/24 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 Relationship Specialty Start Date End Date Herminia Case MD [address] [place] [address] PCP - General Family Medicine 12/12/18 Melva Juárez PA-C [address] [place] [address] [facility] 02/26/24 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 Relationship Specialty Start Date End Date Herminia Case MD [address] [place] [address] PCP - General 04/15/15 Ziyad Menendez MD [address] [facility] [address] [place] [address] Consulting Physician Gynecologic Oncology 03/12/22 Sally Rocha, SEED LABORATORY TECHNICIAN - SHOE TURNER 161 [facility] 295 [place] [address] Nurse Practitioner Certified Nurse Practitioner 04/21/22 Kisha Pepe APRN - SHOE TURNER 161 [facility] 298 [place] [address] Nurse Practitioner Nurse Practitioner 10/20/22 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 Relationship Specialty Start Date End Date Herminia Case MD [address] [place] [address] PCP - General Family Medicine 12/12/18 Melva Juárez PA-C [address] [place] [address] [facility] 02/26/24 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 Relationship Specialty Start Date End Date Herminia Case MD [address] [place] [address] PCP - General Family Medicine 12/12/18 Melva Juárez PA-C [address] [place] [address] [facility] 02/26/24 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 Relationship Specialty Start Date End Date Herminia Case MD [address] [place] [address] PCP - General Family Medicine 12/12/18 Melva Juárez PA-C [address] [place] [address] [facility] 02/26/24 Herminia Case MD [address] [place] [address] Home Care Provider Family Medicine 06/07/24 Herminia Case MD [address] [place] [address] Referring Family Medicine 06/07/24 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 Relationship Specialty Start Date End Date Herminia Case MD [address] [place] [address] PCP - General Family Medicine 12/12/18 Melva Juárez PA-C [address] [place] [address] [facility] 02/26/24 Herminia Case MD [address] [place] [address] Home Care Provider Family Medicine 06/07/24 Herminia Case MD [address] [place] [address] Referring Family Medicine 06/07/24 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 Relationship Specialty Start Date End Date Herminia Case MD [address] [place] [address] PCP - General Family Medicine 12/12/18 Melva Juárez PA-C [address] [place] [address] [facility] 02/26/24 Herminia Case MD [address] [place] [address] Home Care Provider Family Medicine 06/07/24 Herminia Case MD [address] [place] [address] Referring Family Medicine 06/07/24 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 Relationship Specialty Start Date End Date Herminia Case MD [address] [place] [address] PCP - General Family Medicine 12/12/18 Melva Juárez PA-C [address] [place] [address] [facility] 02/26/24 Herminia Case MD [address] [place] [address] Home Care Provider Family Medicine 06/07/24 Herminia Case MD [address] [place] [address] Referring Family Medicine 06/07/24 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 Relationship Specialty Start Date End Date Herminia Case MD [address] [place] [address] PCP - General Family Medicine 12/12/18 Melva Juárez PA-C [address] [place] [address] [facility] 02/26/24 Herminia Case MD [address] [place] [address] Home Care Provider Family Medicine 06/07/24 Herminia Case MD [address] [place] [address] Referring Family Medicine 06/07/24 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 Relationship Specialty Start Date End Date Herminia Case MD [address] [place] [address] PCP - General Family Medicine 12/12/18 Melva Juárez PA-C [address] [place] [address] [facility] 02/26/24 Herminia Case MD [address] [place] [address] Home Care Provider Family Medicine 06/07/24 Herminia Case MD [address] [place] [address] Referring Family Medicine 06/07/24 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 Relationship Specialty Start Date End Date Herminia Case MD [address] [place] [address] PCP - General Family Medicine 12/12/18 Melva Juárez PA-C [address] [place] [address] [facility] 02/26/24 Herminia Case MD [address] [place] [address] Home Care Provider Family Medicine 06/07/24 Herminia Case MD [address] [place] [address] Referring Family Medicine 06/07/24 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 Relationship Specialty Start Date End Date Herminia Case MD [address] [place] [address] PCP - General 04/15/15 Ziyad Menendez MD 161 [facility] [address] [place] [address] Consulting Physician Gynecologic Oncology 03/12/22 Sally Rocha APRN - SHOE TURNER 161 [facility] [address] [place] [address] Nurse Practitioner Certified Nurse Practitioner 04/21/22 Kisha Pepe APRN - SHOE TURNER 161 [facility] [address] [place] [address] Nurse Practitioner Nurse Practitioner 10/20/22 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 Relationship Specialty Start Date End Date Herminia Case MD [address] [place] [address] PCP - General 04/15/15 Ziyad Menendez MD 161 [facility] [address] [place] [address] Consulting Physician Gynecologic Oncology 03/12/22 Sally Rocha APRN - SHOE TURNER [address] [facility] [address] [place] [address] Nurse Practitioner Certified Nurse Practitioner 04/21/22 Kisha Pepe APRN - CNP [address] [facility] [place] [address] Nurse Practitioner Nurse Practitioner 10/20/22 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 Relationship Specialty Start Date End Date Herminia Case MD [address] [place] [address] PCP - General Family Medicine 12/12/18 Melva Juárez PA-C [address] [place] [address] [facility] 02/26/24 Herminia Case MD [address] [place] [address] Home Care Provider Family Medicine 06/07/24 Herminia Case MD [address] [place] [address] Referring Family Medicine 06/07/24 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 Relationship Specialty Start Date End Date Herminia Case MD [address] [place] [address] PCP - General 04/15/15 Ziyad Menendez MD [address] [facility] [address] [place] [address] Consulting Physician Gynecologic Oncology 03/12/22 Sally Rocha SEED LABORATORY TECHNICIAN - SHOE TURNER [address] [facility] [address] [place], [place] [address] Nurse Practitioner Certified Nurse Practitioner 04/21/22 Kisha Pepe APRN - SHOE TURNER [address] [facility] [address] [place], [place] [id number] Nurse Practitioner Nurse Practitioner 10/20/22 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 Relationship Specialty Start Date End Date Herminia Case MD [address] [place] [address] PCP - General Family Medicine 12/12/18 Melva Juárez PA-C [address] [place] [address] [facility] 02/26/24 Herminia Case MD [address] [place] [address] Home Care Provider Family Medicine 06/07/24 Herminia Case MD [address] [place] [address] Referring Family Medicine 06/07/24 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 Relationship Specialty Start Date End Date Herminia Case MD [address] [place] [address] PCP - General 04/15/15 Ziyad Menendez MD 161 [facility] [address] [place] [address] Consulting Physician Gynecologic Oncology 03/12/22 Sally Rocha APRN - SHOE TURNER 161 [facility] 295 [place] [address] Nurse Practitioner Certified Nurse Practitioner 04/21/22 Kisha Pepe APRN - SHOE TURNER 161 [facility] [address] [place] [address] Nurse Practitioner Nurse Practitioner 10/20/22 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 Relationship Specialty Start Date End Date Herminia Case MD [address] [place] [address] PCP - General 04/15/15 Ziyad Menendez MD [address] [id number] Consulting Physician Gynecologic Oncology 03/12/22 Sally Rocha APRN - CNP 161 [facility] 295 [place], [place] [id number] Nurse Practitioner Certified Nurse Practitioner 04/21/22 Kisha Pepe APRN - NADEEM [address] [address] Nurse Practitioner Nurse Practitioner 10/20/22 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 Relationship Specialty Start Date End Date Herminia Case MD [address] [place] [address] PCP - General 04/15/15 Ziyad Menendez MD [address] [address] Consulting Physician Gynecologic Oncology 03/12/22 Sally Rocha APRN - CNP [address] [address] Nurse Practitioner Certified Nurse Practitioner 04/21/22 Kisha Pepe APRN - CNP [address] [address] Nurse Practitioner Nurse Practitioner 10/20/22 FOR RECORDS [...] BE BASED ON THE PRIMARY CLINICAL RECORDS. [facility]. provides no warranty or guarantee of the accuracy or completeness of information in this document.
--- OUTSIDE RECORDS SUMMARY | 2024-12-12 04:27 | XMS RPT_ITS | CCD ---
Author Organization [facility] Care Team Providers Care Supervisory Training Specialist Name Role Phone Herminia Case Primary Care Provider Herminia Case Primary Care Unavailable Evie, Herminia Referring Unavailable Ziyad Menendez Attending Unavailable Evie, Herminia Primary Care Unavailable Disttimmy, Herminia Referring Unavailable Ziyad Menendez Attending Unavailable Evie, Herminia Primary Care Unavailable Distel, Herminia Referring Unavailable Ziyad Menendez Attending Unavailable Guanakoel, Herminia Primary Care Unavailable Guanakoel, Herminia Referring Unavailable Ziyad Menendez Attending Unavailable Distel, Herminia Primary Care Unavailable Distel, Ehrminia Referring Unavailable Ziyad Menendez Attending Unavailable Herminia Case MD Primary Care Provider Herminia Case MD Primary Care Provider Herminia Case MD Primary Care Provider Ziyad Menendez MD Unavailable Aj SPRAYING MACHINE OPERATOR - CARD PLACER, Sally Unavailable Afshin SPRAYING MACHINE OPERATOR - CARD PLACER, Kisha Unavailable Ziyad Menendez MD Unavailable Aj SPRAYING MACHINE OPERATOR - CARD PLACER, Sally Unavailable Ziyad Menendez MD Unavailable Herminia Case MD Primary Care Provider Herminia Case MD Primary Care Provider Ziyad Menendez MD Unavailable Aj SPRAYING MACHINE OPERATOR - CARD PLACER, Sally Unavailable Melva Juárez PA-C Unavailable Herminia Case MD Primary Care Provider [phone] Evie MAHAJAN, Herminia Unavailable Evie MAHAJAN, Herminia [...] Unavailable Katsaros OLS, Jameson Attending Unavailable Aj SPRAYING MACHINE OPERATOR - CARD PLACER, Sally Unavailable [phone] Afshin SPRAYING MACHINE OPERATOR - CARD PLACER, Kisha Unavailable DISTEL, HERMINIA Primary Care Unavailable ZIYAD [...] [SEASONAL ALLERGIES] Allergy to substance 08-16-2017 Intolerance [facility] Work Phone: (20 sources) Pollen Allergy to substance 08-16-2017 Unknown [facility] Medications Current Medications Medication Drug Class(es) [...] intertrochanteric fracture of left femur, initial encounter ([facility]) Take 1 tablet by mouth every 6 [...] 6 HOURS PRN, Pain Severe (7-10), [facility] 08/02/19 at 2107 Maximum dose of acetaminophen [...] mouth. docusate sodium 50 mg / sennosides, mcfp 8.6 mg oral tablet (20 sources) Start: [...] on above: Take 1 capsule by mo [facility] twice daily for 7 days. Take 1 capsule by mo [facility] twice daily for 10 days. 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) , [...] Inhalation, EVERY 6 HOURS PRN, Wheezing, [facility] 08/02/19 at 2106 Start: 08-02-2019 albuterol sulf [...] sodium chloride 0.9 % 250 mL IVPB ([facility]) (2 sources) Start: 08-07-2023 End: 08-07-2023 azithromycin (Zithromax) 500 mg in sodium chloride 0.9 % 250 mL IVPB ([facility]) ceFAZolin 1000 mg injection (1 source) Cephalosporin [...] Minutes, Every 8 hours, First dose on [place] 11/07/22 at 1600, For 2 doses, Phase [...] 05-21-2022 End: 05-21-2022 lidocaine-EPINEPHrine (Xylocaine W/EPI) 1 %-1:[id number] injection 10 mL Start: 12-19-2019 End: 12-19-2019 lidocaine-EPINEPHrine 2 perc ent-1:[id number] injection 2 ml fentaNYL 0.05 mg/ml injection [...] reach optimal image enhancement polyethylene glycol 3350 86408 mg powder for oral solution (14 sources) [...] CONTRAST Patient Name: GONZALO HADDAD : 1955 [facility]#: [id number] Exam Date/Time: 11/20/2024 16:24 Procedure: CT CHEST [...] 10:07 AM EDT F/U PNUEMONIA SOB Normal [facility] Basic Metabolic Profile (BMP )on 10-01-2024 BUN/CRE 33.1 RATIO High 10-20 [facility] Comment on above: Order Comment: 311.1 Performed By: #### L 500.2500, L100.0500 #### [facility] [address] [place], [address] Calcium [Mass/Vol] 9.3 mg/dL Normal 7.6-11.0 [facility] Comment on above: Order Comment: 311.1 Performed By: #### L 500.2500, L100.0500 #### [facility] [address] [place], [address] Chloride [Moles/Vol] 101 mmol/L Normal 98-108 [facility] Comment on above: Order Comment: 311.1 Performed By: #### L 500.2500, L100.0500 #### [facility] [address] [place], [address] CO2 [Moles/Vol] 34.9 mmol/L High 21.0-32.0 [facility] Comment on above: Order Comment: 311.1 Performed By: #### L 500.2500, L100.0500 #### [facility] [address] [place], [address] Creatinine [Mass/Vol] 0.54 mg/dL Low 0.70-1.20 [facility] Comment on above: Order Comment: 311.1 Performed By: #### L 500.2500, L100.0500 #### [facility] [address] [place], [address] GAP 6 Normal 5-15 [facility] Comment on above: Order Comment: 311.1 Performed By: #### L 500.2500, L100.0500 #### [facility] [address] [place], [address] GFR/1.73 sq M.predicted among non-blacks MDRD (S/P/Bld) [Vol rate/Area] 101 mL/min/{1.73_m2} Normal >60 [facility] Comment on above: Order Comment: 311.1 Result Comment: mL/m in/1.73m2 CKD-EPI Creatinine Equation (2020) Performed By: #### L 500.2500, L100.0500 #### [facility] [address] [place], [address] Glucose [Mass/Vol] 80 mg/dL Normal 70-99 [facility] Comment on above: Order Comment: 311.1 Performed By: #### L 500.2500, L100.0500 #### [facility] [address] [place], [address] Potassium [Moles/Vol] 4.6 mmol/L Normal 3.3-5.1 [facility] Comment on above: Order Comment: 311.1 Performed By: #### L 500.2500, L100.0500 #### [facility] [address] [place], [address] Sodium [Moles/Vol] 142 mmol/L Normal 133-145 [facility] Comment on above: Order Comment: 311.1 Performed By: #### L 500.2500, L100.0500 #### [facility] [address] [place], [address] Urea nitrogen [Mass/Vol] 18 mg/dL Normal 4-19 [facility] Comment on above: Order Comment: 311.1 Performed By: #### L 500.2500, L100.0500 #### [facility] [address] [place], [address] CBC-Complete Blood Cnt No Di ffon 10-01-2024 Erythrocyte distribution width (RBC) [Ratio] 13.2 % Normal 11.6-14.6 [facility] Comment on above: Order Comment: 311.1 Performed By: #### L 400.0001, M100.2200 #### [facility] [address] [place], [address] Hematocrit (Bld) [Volume fraction] 37.6 % Normal 37-47 [facility] Comment on above: Order Comment: 311.1 Performed By: #### L 400.0001, .2199 #### [facility] [address] [place], [address] Hemoglobin (Bld) [Mass/Vol] 11.4 g/dL Low 12.0-15.0 [facility] Comment on above: Order Comment: 311.1 Performed By: #### L 400.0001, #### [facility] [address] [place], [address] MCH (RBC) [Entitic mass] 30.2 pg Normal 27.0-32.0 [facility] Comment on above: Order Comment: 311.1 Performed By: #### L 400.0001, #### [facility] [address] [place], [address] MCHC (RBC) [Mass/Vol] 30.3 g/dL Low 32-36 [facility] Comment on above: Order Comment: 311.1 Performed By: #### L 400.0001, #### [facility] [address] [place], [address] MCV (RBC) [Entitic vol] 99.7 fL High 81-99 [facility] Comment on above: Order Comment: 311.1 Performed By: #### L 400.0001, #### [facility] [address] [place], [address] Platelet mean volume (Bld) [Entitic vol] 9.8 fL Normal 6.2-12.0 [facility] Comment on above: Order Comment: 311.1 Performed By: #### L 400.0001, .2199 #### [facility] [address] [place], [address] Platelets (Bld) [#/Vol] 248 10*3/uL Normal 150-450 [facility] Comment on above: Order Comment: 311.1 Performed By: #### L 400.0001, M1.0 #### [facility] [address] [place], [address] RBC (Bld) [#/Vol] 3.77 10*6/uL Low 4.2-5.4 [facility] Comment on above: Order Comment: 311.1 Performed By: #### L 400.0001, .0 #### [facility] [address] [place], [address] RDW SD 48.3 fl High 35.1-43.9 [facility] Comment on above: Order Comment: 311.1 Performed By: #### L 400.0001, .2199 #### [facility] [address] [place], [address] WBC (Bld) [#/Vol] 6.3 10*3/uL Normal 4.4-11.0 [facility] Comment on above: Order Comment: 311.1 Performed By: #### L 400.0001, #### [facility] [address] [place], [address] Urine Cultureon 09-20-2024 U[facility] UNKNOWN METHOD OF COLLECTION Mixed Gram Pos Gram Neg Org Conception Count 11,000-25,000 MIXC Mixed contaminants. Submit a new specimen if indicated. Normal [facility] Comment on above: Performed By: #### L 400.0001, M1.0 #### [facility] [address] [place], [address] Urinalysis, Completeon 09-18 CA OX CRYSTAL 1+ /hpf Normal [facility] Comment on above: Order Comment: UNKNO WN METHOD OF COLLECTION CLEAN CATCH Performed By: #### L 400.0001, M1.2199 #### [facility] [address] [place], [address] BACTERIA 0 SEEN Normal None Seen [facility] Comment on above: Order Comment: UNKNO WN METHOD OF COLLECTION CLEAN CATCH Performed By: #### L 400.0001, M1.0 #### [facility] [address] [place], [address] EPI,SQUAMOUS 0 SEEN Normal 5-10 [facility] Comment on above: Order Comment: UNKNO WN METHOD OF COLLECTION CLEAN CATCH Performed By: #### L 400.0001, M1.2199 #### [facility] [address] [place], [address] Mucus Ql (Urine sed) 0 SEEN Normal [facility] Comment on above: Order Comment: UNKNO WN METHOD OF COLLECTION CLEAN CATCH Performed By: #### L 400.0001, .2199 #### [facility] [address] [place], [address] RBC 0 SEEN Normal 0-5 [facility] Comment on above: Order Comment: UNKNO WN METHOD OF COLLECTION CLEAN CATCH Performed By: #### L 400.0001, M1.2199 #### [facility] [address] [place], [address] WBC 0 SEEN Normal 0-5 [facility] Comment on above: Order Comment: UNKNO WN METHOD OF COLLECTION CLEAN CATCH Performed By: #### L 400.0001, M1.2199 #### [facility] [address] [place], [address] Basic Metabolic Profile (BMP )on 09-17-2024 BUN/CRE 26.7 RATIO High 10-20 [facility] Comment on above: Order Comment: 311-2 Performed By: #### L 500.2500, L100.0500 #### [facility] [address] [place], [address] Calcium [Mass/Vol] 8.9 mg/dL Normal 7.6-11.0 [facility] Comment on above: Order Comment: 311-2 Performed By: #### L 500.2500, L100.0500 #### [facility] [address] [place], [address] Chloride [Moles/Vol] 103 mmol/L Normal 98-108 [facility] Comment on above: Order Comment: 311-2 Performed By: #### L 500.2500, L100.0500 #### [facility] [address] [place], [address] CO2 [Moles/Vol] 32.9 mmol/L High 21.0-32.0 [facility] Comment on above: Order Comment: 311-2 Performed By: #### L 500.2500, L100.0500 #### [facility] [address] [place], [address] Creatinine [Mass/Vol] 0.56 mg/dL Low 0.70-1.20 [facility] Comment on above: Order Comment: 311-2 Performed By: #### L 500.2500, L100.0500 #### [facility] [address] [place], [address] GAP 7 Normal 5-15 [facility] Comment on above: Order Comment: 311-2 Performed By: #### L 500.2500, L100.0500 #### [facility] [address] [place], [address] GFR/1.73 sq M.predicted among non-blacks MDRD (S/P/Bld) [Vol rate/Area] 100 mL/min/{1.73_m2} Normal >60 [facility] Comment on above: Order Comment: 311-2 Result Comment: mL/m in/1.73m2 CKD-EPI Creatinine Equation (2020) Performed By: #### L 500.2500, L100.0500 #### [facility] [address] [place], [address] Glucose [Mass/Vol] 80 mg/dL Normal 70-99 [facility] Comment on above: Order Comment: 311-2 Performed By: #### L 500.2500, L100.0500 #### [facility] [address] [place], [address] Potassium [Moles/Vol] 4.1 mmol/L Normal 3.3-5.1 [facility] Comment on above: Order Comment: 311-2 Performed By: #### L 500.2500, L100.0500 #### [facility] [address] [place], [address] Sodium [Moles/Vol] 143 mmol/L Normal 133-145 [facility] Comment on above: Order Comment: 311-2 Performed By: #### L 500.2500, L100.0500 #### [facility] [address] [place], [address] Urea nitrogen [Mass/Vol] 15 mg/dL Normal 4-19 [facility] Comment on above: Order Comment: 311-2 Performed By: #### L 500.2500, L100.0500 #### [facility] [address] [place], [address] CBC-Complete Blood Cnt No Di ffon 09-17-2024 Erythrocyte distribution width (RBC) [Ratio] 13.7 % Normal 11.6-14.6 [facility] Comment on above: Order Comment: 311-2 Performed By: #### L 500.2500, L100.0500 #### [facility] [address] [place], [address] Hematocrit (Bld) [Volume fraction] 35.4 % Low 37-47 [facility] Comment on above: Order Comment: 311-2 Performed By: #### L 500.2500, L100.0500 #### [facility] [address] [place], [address] Hemoglobin (Bld) [Mass/Vol] 10.7 g/dL Low 12.0-15.0 [facility] Comment on above: Order Comment: 311-2 Performed By: #### L 500.2500, L100.0500 #### [facility] [address] [place], [address] MCH (RBC) [Entitic mass] 30.9 pg Normal 27.0-32.0 [facility] Comment on above: Order Comment: 311-2 Performed By: #### L 500.2500, L100.0500 #### [facility] [address] [place], [address] MCHC (RBC) [Mass/Vol] 30.2 g/dL Low 32-36 [facility] Comment on above: Order Comment: 311-2 Performed By: #### L 500.2500, L100.0500 #### [facility] [address] [place], [address] MCV (RBC) [Entitic vol] 102.3 fL High 81-99 [facility] Comment on above: Order Comment: 311-2 Performed By: #### L 500.2500, L100.0500 #### [facility] [address] [place], [address] Platelet mean volume (Bld) [Entitic vol] 9.9 fL Normal 6.2-12.0 [facility] Comment on above: Order Comment: 311-2 Performed By: #### L 500.2500, L100.0500 #### [facility] [address] [place], [address] Platelets (Bld) [#/Vol] 246 10*3/uL Normal 150-450 [facility] Comment on above: Order Comment: 311-2 Performed By: #### L 500.2500, L100.0500 #### [facility] [address] [place], [address] RBC (Bld) [#/Vol] 3.46 10*6/uL Low 4.2-5.4 [facility] Comment on above: Order Comment: 311-2 Performed By: #### L 500.2500, L100.0500 #### [facility] [address] [place], [address] RDW SD 52.1 fl High 35.1-43.9 [facility] Comment on above: Order Comment: 311-2 Performed By: #### L 500.2500, L100.0500 #### [facility] [address] [place], [address] WBC (Bld) [#/Vol] 8.0 10*3/uL Normal 4.4-11.0 [facility] Comment on above: Order Comment: 311-2 Performed By: #### L 500.2500, L100.0500 #### [facility] [address] [place], [address] Basic Metabolic Profile (BMP )on 09-14-2024 BUN/CRE 23.4 RATIO High 10-20 [facility] Comment on above: Order Comment: 311-2 Performed By: #### L 500.2500, L100.0500 #### [facility] [address] [place], [address] Calcium [Mass/Vol] 9.2 mg/dL Normal 7.6-11.0 [facility] Comment on above: Order Comment: 311-2 Performed By: #### L 500.2500, L100.0500 #### [facility] [address] [place], [address] Chloride [Moles/Vol] 98 mmol/L Normal 98-108 [facility] Comment on above: Order Comment: 311-2 Performed By: #### L 500.2500, L100.0500 #### [facility] [address] [place], [address] CO2 [Moles/Vol] 29.4 mmol/L Normal 21.0-32.0 [facility] Comment on above: Order Comment: 311-2 Performed By: #### L 500.2500, L100.0500 #### [facility] [address] [place], [address] Creatinine [Mass/Vol] 0.56 mg/dL Low 0.70-1.20 [facility] Comment on above: Order Comment: 311-2 Performed By: #### L 500.2500, L100.0500 #### [facility] [address] [place], [address] GAP 12 Normal 5-15 [facility] Comment on above: Order Comment: 311-2 Performed By: #### L 500.2500, L100.0500 #### [facility] [address] [place], [address] GFR/1.73 sq M.predicted among non-blacks MDRD (S/P/Bld) [Vol rate/Area] 100 mL/min/{1.73_m2} Normal >60 [facility] Comment on above: Order Comment: 311-2 Result Comment: mL/m in/1.73m2 CKD-EPI Creatinine Equation (2020) Performed By: #### L 500.2500, L100.0500 #### [facility] [address] [place], [address] Glucose [Mass/Vol] 103 mg/dL High 70-99 [facility] Comment on above: Order Comment: 311-2 Performed By: #### L 500.2500, L100.0500 #### [facility] [address] [place], [address] Potassium [Moles/Vol] 3.9 mmol/L Normal 3.3-5.1 [facility] Comment on above: Order Comment: 311-2 Performed By: #### L 500.2500, L100.0500 #### [facility] [address] [place], [address] Sodium [Moles/Vol] 139 mmol/L Normal 133-145 [facility] Comment on above: Order Comment: 311-2 Performed By: #### L 500.2500, L100.0500 #### [facility] [address] [place], [address] Urea nitrogen [Mass/Vol] 13 mg/dL Normal 4-19 [facility] Comment on above: Order Comment: 311-2 Performed By: #### L 500.2500, L100.0500 #### [facility] [address] [place], [address] CBC-Complete Blood Cnt No Di ffon 09-14-2024 Erythrocyte distribution width (RBC) [Ratio] 13.4 % Normal 11.6-14.6 [facility] Comment on above: Order Comment: 311-2 Performed By: #### L 500.2500, L100.0500 #### [facility] [address] [place], [address] Hematocrit (Bld) [Volume fraction] 38.3 % Normal 37-47 [facility] Comment on above: Order Comment: 311-2 Performed By: #### L 500.2500, L100.0500 #### [facility] [address] [place], [address] Hemoglobin (Bld) [Mass/Vol] 12.1 g/dL Normal 12.0-15.0 [facility] Comment on above: Order Comment: 311-2 Performed By: #### L 500.2500, L100.0500 #### [facility] [address] [place], [address] MCH (RBC) [Entitic mass] 32.0 pg Normal 27.0-32.0 [facility] Comment on above: Order Comment: 311-2 Performed By: #### L 500.2500, L100.0500 #### [facility] [address] [place], [address] MCHC (RBC) [Mass/Vol] 31.6 g/dL Low 32-36 [facility] Comment on above: Order Comment: 311-2 Performed By: #### L 500.2500, L100.0500 #### [facility] [address] [place], [address] MCV (RBC) [Entitic vol] 101.3 fL High 81-99 [facility] Comment on above: Order Comment: 311-2 Performed By: #### L 500.2500, L100.0500 #### [facility] [address] [place], [address] Platelet mean volume (Bld) [Entitic vol] 9.9 fL Normal 6.2-12.0 [facility] Comment on above: Order Comment: 311-2 Performed By: #### L 500.2500, L100.0500 #### [facility] [address] [place], [address] Platelets (Bld) [#/Vol] 274 10*3/uL Normal 150-450 [facility] Comment on above: Order Comment: 311-2 Performed By: #### L 500.2500, L100.0500 #### [facility] [address] [place], [address] RBC (Bld) [#/Vol] 3.78 10*6/uL Low 4.2-5.4 [facility] Comment on above: Order Comment: 311-2 Performed By: #### L 500.2500, L100.0500 #### [facility] [address] [place], [address] RDW SD 50.9 fl High 35.1-43.9 [facility] Comment on above: Order Comment: 311-2 Performed By: #### L 500.2500, L100.0500 #### [facility] [address] [place], [address] WBC (Bld) [#/Vol] 11.4 10*3/uL High 4.4-11.0 [facility] Comment on above: Order Comment: 311-2 Performed By: #### L 500.2500, L100.0500 #### [facility] [address] [place], [address] 36on 09-07-2024 36 Spoke to Nilesh from [facility] and scheduled patient for a follow up on 09/24@10am. Patient has not been seen for quite a while and also is requesting port removal to be scheduled. Normal [facility] 36 Nilesh from [facility] states pt's port was flushed but there was no blood draw back. Patient requested for the port to be removed due to not being used for roughly 1 year. Please contact Nilesh with further questions at [phone] Normal [facility] Progress Noteon 09-06-2024 Progress Note Arrival Note [...] and verbalizes understanding. All questions answered. Normal [facility] Thyroid Stim Hormone (TSH)on 08-22-2024 TSH 0.786 uIU/mL Normal 0.300-4.200 [facility] Comment on above: Order Comment: 102.2 Performed By: #### L 501.9520 #### [facility] [address] [place], [address] 37on 08-20-2024 37 YOUR APPOINTMENT TOHetal HAUSER WAS WITH [facility], COPD CLINIC, PULMONARY AND SLEEP MEDICINE OFFICE. PLEASE CALL OUR OFFICE AT [phone] for our [place] office location or [phone] for our [place] location, IF YOU HAVE NOT RECEIVED YOUR [...] to make improvements. COVID-19 VACCINATION INFORMATION: PH. [phone] [email or web address]/CORONAVIRUS /VACCINE [facility] Scheduling [phone] [facility] Sleep Scheduling [phone] [facility] Office Visiton 08-20-2024 Follow-up visit [id number] Jace Deluca 1955 F Date Provider Department Center 08/20/2024 ELYSSA GUERRERO [facility] PULM None Family History Problem Relation Age of Onset Colon cancer Neg Hx Ovarian cancer Neg Hx Cancer Mother Comments: breast- to liver Cancer Sister Comments: breast Cancer Father Comments: lung to brain No Known Problems Brother Uterine cancer Neg Hx Family Status - Relation Status Age at Neg Hx Mother Sister Alive Father Brother Alive Level of Service:07898 ND OFFICE/OUTPATIENT ESTABLISHED MOD MDM 30 MIN Reason for Visit and Comments: Hospital Follow-up [832] - COPD,PSA/MSSA/STREP LRTI ESTABLISH PULM OUTPATIENT... Normal [facility] Progress Noteon 08-20-2024 Progress Note [facility] Pulmonary Medicine [address] [place] [address] Date of Service: 08/20/2024 Visit type: An Established patient Chief Complaint/Reason for Referral: Hospital Follow-up (COPD,PSA/MSSA/STREP LRTI/ESTABLISH PULM OUTPATIENT...) SUBJECTIVE History of Present Illness: Gonzalo Deluca ( 1955) is a 68 y.o. female patient, with significant PMH of COPD, emphysema, chronic respiratory failure 3L, pulmonary nodule, sciatica, and tobacco use being seen for pulmonary hospital follow up Admitted [facility] 07/30/2024 - 08/08/2024 pulmonology was consulted for triple bacterial pneumonia, treated for pseudomona, moraxella and Streptoccus, on top of severe pneumonia, with increased oxygen requirements and chronic respiratory failure. Failure to thrive. Chronic resp failure with severe emphysema, 3L baseline O2. Treated with Dulera, Spiriva. Reports significant weight loss of 40 lbs over the past few months. Currently at [facility], long term. Presents today with son, states breathing is better than before the hospital. Wearing 3L supplemental continuous oxygen today. SpO2 is 92%, does not appear distressed. Staying at [facility] for long term and has been beneficial. Follows with palliative care for dyspnea, taking oxycodone and has been helping. Reports has gained some weight since breathing has improved and being at long term facility. Expressed to keep up whatever it [...] spine simil (more content not included)... Normal [facility] Basic Metabolic Profile (BMP )on 08-15-2024 BUN/CRE 28.5 RATIO High 10-20 [facility] Comment on above: Order Comment: 102-2 Performed By: #### L 100.0500, L500.2500 #### [facility] [address] [place], [address] Calcium [Mass/Vol] 8.8 mg/dL Normal 7.6-11.0 [facility] Comment on above: Order Comment: 102-2 Performed By: #### L 100.0500, L500.2500 #### [facility] [address] [place], [address] Chloride [Moles/Vol] 103 mmol/L Normal 98-108 [facility] Comment on above: Order Comment: 102-2 Performed By: #### L 100.0500, L500.2500 #### [facility] [address] [place], [address] CO2 [Moles/Vol] 31.7 mmol/L Normal 21.0-32.0 [facility] Comment on above: Order Comment: 102-2 Performed By: #### L 100.0500, L500.2500 #### [facility] [address] [place], [address] Creatinine [Mass/Vol] 0.47 mg/dL Low 0.70-1.20 [facility] Comment on above: Order Comment: 102-2 Performed By: #### L 100.0500, L500.2500 #### [facility] [address] [place], [address] GAP 7 Normal 5-15 [facility] Comment on above: Order Comment: 102-2 Performed By: #### L 100.0500, L500.2500 #### [facility] [address] [place], [address] GFR/1.73 sq M.predicted among non-blacks MDRD (S/P/Bld) [Vol rate/Area] 104 mL/min/{1.73_m2} Normal >60 [facility] Comment on above: Order Comment: 102-2 Result Comment: mL/m in/1.73m2 CKD-EPI Creatinine Equation (2020) Performed By: #### L 100.0500, L500.2500 #### [facility] [address] [place], [address] Glucose [Mass/Vol] 85 mg/dL Normal 70-99 [facility] Comment on above: Order Comment: 102-2 Performed By: #### L 100.0500, L500.2500 #### [facility] [address] [place], [address] Potassium [Moles/Vol] 3.9 mmol/L Normal 3.3-5.1 [facility] Comment on above: Order Comment: 102-2 Performed By: #### L 100.0500, L500.2500 #### [facility] [address] [place], [address] Sodium [Moles/Vol] 142 mmol/L Normal 133-145 [facility] Comment on above: Order Comment: 102-2 Performed By: #### L 100.0500, L500.2500 #### [facility] [address] [place], [address] Urea nitrogen [Mass/Vol] 13 mg/dL Normal 4-19 [facility] Comment on above: Order Comment: 102-2 Performed By: #### L 100.0500, L500.2500 #### [facility] [address] [place], [address] CBC-Complete Blood Cnt No Di ffon 08-15-2024 Erythrocyte distribution width (RBC) [Ratio] 14.0 % Normal 11.6-14.6 [facility] Comment on above: Order Comment: 102-2 Performed By: #### L 100.0500, L500.2500 #### [facility] [address] [place], [address] Hematocrit (Bld) [Volume fraction] 34.7 % Low 37-47 [facility] Comment on above: Order Comment: 102-2 Performed By: #### L 100.0500, L500.2500 #### [facility] [address] [place], [address] Hemoglobin (Bld) [Mass/Vol] 10.4 g/dL Low 12.0-15.0 [facility] Comment on above: Order Comment: 102-2 Performed By: #### L 100.0500, L500.2500 #### [facility] [address] [place], [address] MCH (RBC) [Entitic mass] 31.2 pg Normal 27.0-32.0 [facility] Comment on above: Order Comment: 102-2 Performed By: #### L 100.0500, L500.2500 #### [facility] [address] [place], [address] MCHC (RBC) [Mass/Vol] 30.0 g/dL Low 32-36 [facility] Comment on above: Order Comment: 102-2 Performed By: #### L 100.0500, L500.2500 #### [facility] [address] [place], [address] MCV (RBC) [Entitic vol] 104.2 fL High 81-99 [facility] Comment on above: Order Comment: 102-2 Performed By: #### L 100.0500, L500.2500 #### [facility] [address] [place], [address] Platelet mean volume (Bld) [Entitic vol] 9.8 fL Normal 6.2-12.0 [facility] Comment on above: Order Comment: 102-2 Performed By: #### L 100.0500, L500.2500 #### [facility] [address] [place], [address] Platelets (Bld) [#/Vol] 236 10*3/uL Normal 150-450 [facility] Comment on above: Order Comment: 102-2 Performed By: #### L 100.0500, L500.2500 #### [facility] [address] [place], [address] RBC (Bld) [#/Vol] 3.33 10*6/uL Low 4.2-5.4 [facility] Comment on above: Order Comment: 102-2 Performed By: #### L 100.0500, L500.2500 #### [facility] [address] [place], [address] RDW SD 54.0 fl High 35.1-43.9 [facility] Comment on above: Order Comment: 102-2 Performed By: #### L 100.0500, L500.2500 #### [facility] [address] [place], [address] WBC (Bld) [#/Vol] 9.4 10*3/uL Normal 4.4-11.0 [facility] Comment on above: Order Comment: 102-2 Performed By: #### L 100.0500, L500.2500 #### [facility] [address] [place], [address] [id number] 08-10-2024 [id number] Patient Choice Patient Name: GONZALO DELUCA Date of : 1955 [facility] 30on 08-08-2024 30 Problem: Knowledge Deficit Goal: [...] Sadie Rodriguez RN Outcome: Not Progressing Normal [facility] 30 Problem: Potential f or Compromised Skin [...] Promote nutritional intake Outcome: Not Progressing Normal [facility] [id number] 08-08-2024 [id number] Rounds this am DCP: [facility] Called to notify Karishma/dtr: [facility] has overturned the Denial and is approved to go to [facility] Transport arranged for 330pm. Tasked to [employer] to complete 7,000 Send AVS and Mar to facility Facility is updated RN and MD notified [facility] [phone] MAR, Discharge med list transmitted and 7000 in HENs to [facility] via [facility] per TCC request. [facility] BASIC METABOLIC PANELon 05-2 Anion gap [Moles/Vol] 8 mmol/L Normal 3-13 [facility] Comment on above: Performed By: #### L AB15 ####Medical Records Specialist: HANS PAULSON ([phone])[facility] Calcium [Mass/Vol] 8.6 mg/dL Low 8.8-10.0 [facility] Comment on above: Performed By: #### L AB15 ####Medical Records Specialist: HANS PAULSON ([phone])[facility] ([facility])[address] [place] [address] [place] Chloride [Moles/Vol] 101 mmol/L Normal 98-107 [facility] Comment on above: Performed By: #### L AB15 ####Medical Records Specialist: HANS PAULSON ([phone])[facility] ([facility])[address] [place] [address] [place] CO2 [Moles/Vol] 32 mmol/L High 23-31 [facility] Comment on above: Performed By: #### L AB15 ####Medical Records Specialist: HANS PAULSON ([phone])[facility] ([facility])[address] Creatinine [Mass/Vol] 0.63 mg/dL Normal 0.57-1.11 [facility] Comment on above: Performed By: #### L AB15 ####Medical Records Specialist: HANS PAULSON ([phone])[facility] ([facility] GLOMERULAR FILTRATION RATE ML/MIN/1.73 SQ M.PREDICTED >90.0 Normal >60.0 [facility] Comment on above: Result Comment: Calc ulation based on the Chronic Kidney Disease Epidemiology Collaboration (CKD-EPI) equation refit without adjustment for race Performed By: #### L AB15 ####Medical Records Specialist: HANS PAULSON ([phone])[facility] ([facility])[address] Glucose [Mass/Vol] 99 mg/dL Normal 82-115 [facility] Comment on above: Performed By: #### L AB15 ####Medical Records Specialist: HANS PAULSON ([phone])[facility] ([facility])[address] Potassium [Moles/Vol] 3.9 mmol/L Normal 3.5-5.1 [facility] Comment on above: Result Comment: [facility] potassium values may be up to 0.5 mmol/L lower than serum values. Performed By: #### L AB15 ####Medical Records Specialist: HANS PAULSON ([phone])[facility] ([facility] [place] [address] [place] Sodium [Moles/Vol] 141 mmol/L Normal 136-145 [facility] Comment on above: Performed By: #### L AB15 ####Medical Records Specialist: HANS PAULSON ([phone])[facility] ([facility] Urea nitrogen [Mass/Vol] 22 mg/dL Normal 9-23 [facility] Comment on above: Performed By: #### L AB15 ####Medical Records Specialist: HANS PAULSON ([phone])[facility] ([facility])[address] Basic metabolic 1998 panelon 08-08-2024 Anion gap [Moles/Vol] 8 mmol/L 3 - 13 mmol/L [facility] Calcium [Mass/Vol] 8.6 mg/dL Low 8.8 - 10. 0 mg/dL [facility] Chloride [Moles/Vol] 101 mmol/L 98 - 10 7 mmol/L [facility] CO2 [Moles/Vol] 32 mmol/L High 23 - 31 mmol/L [facility] Creatinine [Mass/Vol] 0.63 mg/dL 0.57 - 1.11 mg/dL [facility] GFR/1.73 sq M.predicted (S/P/Bld) [Vol rate/Area] - PINF [facility] Comment on above: Calculation based on the Chronic Kidney Disease Epidemiology Collaboration (CKD-EPI) equation refit without adjustment for race Glucose [Mass/Vol] 99 mg/dL 82 - 115 mg/dL [facility] Interpretation and review of laboratory results Abnormal [facility] Potassium [Moles/Vol] 3.9 mmol/L 3.5 - 5.1 mmol/L [facility] Comment on above: Plasma potassium martín ues may be up to 0.5 mmol/L lower than serum values. Sodium [Moles/Vol] 141 mmol/L 136 - 145 mmol/L [facility] Urea nitrogen [Mass/Vol] 22 mg/dL 9 - 23 mg/d L [facility] CBC W Auto Differential pane l (Bld)on 08-08-2024 Basophils (Bld) [#/Vol] 0 10*3/uL 0.0 - 0.2 10*3/uL [facility] Basophils/100 WBC (Bld) 0.2 % 0.0 - 2.0 % [facility] Eosinophils (Bld) [#/Vol] 0.4 10*3/uL 0.0 - 0.5 10*3/uL [facility] Eosinophils/100 WBC (Bld) 2.9 % 0.0 - 6.0 % [facility] Erythrocyte distribution width (RBC) [Ratio] 14.6 % 11.5 - 15.0 % [facility] Hematocrit (Bld) [Volume fraction] 33.7 % Low 35.0 - 47.0 % [facility] Hemoglobin (Bld) [Mass/Vol] 10.4 g/dL Low 11.7 - 16.0 g/dL [facility] Immature granulocytes (Bld) [#/Vol] 0 10*3/uL NINF - 0.1 10*3/uL [facility] Immature granulocytes/100 WBC (Bld) 0.3 % 0.0 - 2.0 % [facility] Interpretation and review of laboratory results Abnormal [facility] Lymphocytes (Bld) [#/Vol] 1.1 10*3/uL 1.0 - 4.3 10*3/uL [facility] Lymphocytes/100 WBC (Bld) 9 % Low 15.0 - 45.0 % [facility] MCH (RBC) [Entitic mass] 31.3 pg 26. 0 - 34.0 pg [facility] MCHC (RBC) [Mass/Vol] 30.9 % 30.5 - 36.0 % [facility] MCV (RBC) [Entitic vol] 101.5 fL High 77.0 - 99.0 fL [facility] Monocytes (Bld) [#/Vol] 1.2 10*3/uL High 0.0 - 0.9 10*3/uL [facility] Monocytes/100 WBC (Bld) 9.6 % 5.0 - 13.0 % [facility] Neutrophils (Bld) [#/Vol] 9.8 10*3/uL High 1.8 - 7.5 10*3/uL [facility] Neutrophils/100 WBC (Bld) 78 % 38.0 - 82.0 % [facility] Nucleated RBC/100 WBC (Bld) [Ratio] 0 % [facility] Platelet mean volume (Bld) [Entitic vol] 9.8 fL 9.0 - 12.7 fL [facility] Platelets (Bld) [#/Vol] 192 10*3/uL 140 - 440 10*3/uL [facility] RBC (Bld) [#/Vol] 3.32 10*6/uL Low 3.80 - 5.2 0 10*6/uL [facility] WBC (Bld) [#/Vol] 12.6 10*3/uL High 3.6 - 10.7 10*3/uL [facility] CBC WITH AUTO DIFFERENTIALon 08-08-2024 Basophils (Bld) [#/Vol] 0.0 10*3/uL Normal 0.0-0.2 [facility] Comment on above: Performed By: #### L [id number] ####Medical Records Specialist: HANS PAULSON ([phone])[facility] ([facility])[address] Basophils/100 WBC (Bld) 0.2 % Normal 0.0-2.0 [facility] Comment on above: Performed By: #### L [id number] ####Medical Records Specialist: HANS PAULSON ([id number])[facility] ([facility])[address] Eosinophils (Bld) [#/Vol] 0.4 10*3/uL Normal 0.0-0.5 [facility] Comment on above: Performed By: #### L [id number] ####Medical Records Specialist: HANS PAULSON ([phone])[facility] [place] ([facility])[address] Eosinophils/100 WBC (Bld) 2.9 % Normal 0.0-6.0 [facility] Comment on above: Performed By: #### L [id number] ####Medical Records Specialist: HANS ALCANTARESCOBAR ([id number])[facility] ([facility])[address] Erythrocyte distribution width (RBC) [Ratio] 14.6 % Normal 11.5-15.0 [facility] Comment on above: Performed By: #### L [id number] ####Medical Records Specialist: HANS PAULSON ([phone])[facility] ([facility])[address] Hematocrit (Bld) [Volume fraction] 33.7 % Low 35.0-47.0 [facility] Comment on above: Performed By: #### L [id number] ####Medical Records Specialist: HANS PAULSON ([id number])[facility] [place] ([facility])[address] Hemoglobin (Bld) [Mass/Vol] 10.4 g/dL Low 11.7-16.0 [facility] Comment on above: Performed By: #### L [id number] ####Medical Records Specialist: HANS PAULSON ([phone])[facility] [place] ([facility])[address] IMMATURE GRANS % 0.3 % Normal 0.0-2.0 [facility] Comment on above: Performed By: #### L [id number] ####Medical Records Specialist: HANS PAULSON ([id number])[facility] ([facility])[address] IMMATURE GRANS ABSOLUTE 0.0 10*3/uL Normal <0.1 [facility] Comment on above: Performed By: #### L [id number] ####Medical Records Specialist: HANS PAULSON ([phone])[facility] ([facility])[address] Lymphocytes (Bld) [#/Vol] 1.1 10*3/uL Normal 1.0-4.3 [facility] Comment on above: Performed By: #### L [id number] ####Medical Records Specialist: HANS PAULSON ([phone])[facility] [place] ([facility])[address] Lymphocytes/100 WBC (Bld) 9.0 % Low 15.0-45.0 [facility] Comment on above: Performed By: #### L [id number] ####Medical Records Specialist: HANS PAULSON ([phone])[facility] [place] ([facility])[address] MCH (RBC) [Entitic mass] 31.3 pg Normal 26.0-34.0 [facility] Comment on above: Performed By: #### L [id number] ####Medical Records Specialist: HANS PAULSON ([phone])[facility] ([facility])[address] MCHC 30.9 % Normal 30.5-36.0 [facility] Comment on above: Performed By: #### L [id number] ####Medical Records Specialist: HANS PAULSON ([id number])[facility] ([facility])[address] MCV (RBC) [Entitic vol] 101.5 fL High 77.0-99.0 [facility] Comment on above: Performed By: #### L [id number] ####Medical Records Specialist: HANS LORENE ([phone])[facility] ([facility])[address] Monocytes (Bld) [#/Vol] 1.2 10*3/uL High 0.0-0.9 [facility] Comment on above: Performed By: #### L [id number] ####Medical Records Specialist: HANS LORENE ([id number])[facility] ([facility])[address] Monocytes/100 WBC (Bld) 9.6 % Normal 5.0-13.0 [facility] Comment on above: Performed By: #### L [id number] ####Medical Records Specialist: HANS WALDROPIVELISSE ([id number])[facility] ([facility])[address] NEUTROPHILS ABSOLUTE 9.8 10*3/uL High 1.8-7.5 [facility] Comment on above: Performed By: #### L [id number] ####Medical Records Specialist: HANS LORENE ([phone])[facility] ([facility])[address] Neutrophils/100 WBC (Bld) 78.0 % Normal 38.0-82.0 [facility] Comment on above: Performed By: #### L [id number] ####Medical Records Specialist: HANS LORENE ([phone])[facility] [place] ([facility])[address] NRBC 0.0 /100 WBCs Normal 0.0-2.0 [facility] Comment on above: Performed By: #### L [id number] ####Medical Records Specialist: HANS PAULSON ([phone])[facility] ([facility])[address] Platelet mean volume (Bld) [Entitic vol] 9.8 fL Normal 9.0-12.7 [facility] Comment on above: Performed By: #### L [id number] ####Medical Records Specialist: HANS PAULSON ([phone])[facility])[address] Platelets (Bld) [#/Vol] 192 10*3/uL Normal 140-440 [facility] Comment on above: Performed By: #### L [id number] ####Medical Records Specialist: HANS PAULSON ([phone])[facility] ([facility])[address] RBC (Bld) [#/Vol] 3.32 10*6/uL Low 3.80-5.20 [facility] Comment on above: Performed By: #### L [id number] ####Medical Records Specialist: HANS PAULSON ([phone])[facility] ([facility])[address] [place] [address] WBC (Bld) [#/Vol] 12.6 10*3/uL High 3.6-10.7 [facility] Comment on above: Performed By: #### L [id number] ####Medical Records Specialist: HANS PAULSON ([phone])[facility] ([facility])[address] COMPLETE URINALYSIS WITH REF FAMILIA TO CULTUREon 08-08-2024 BACTERIA (#/HPF) IN URINE Negative Normal Negative [facility] Comment on above: Performed By: #### L [id number] ####Medical Records Specialist: HANS PAULSON ([phone])[facility] ([facility])[address] BILIRUBIN, TOTAL PRESENCE IN URINE Negative Normal Negative [facility] Comment on above: Performed By: #### L [id number] ####Medical Records Specialist: HANS PAULSON ([id number])[facility] ([facility])[address] Clarity (U) Clear Normal Clear [facility] Comment on above: Performed By: #### L [id number] ####Medical Records Specialist: HANS PAULSON ([phone])[facility] ([facility])[address] Color (U) Yellow Normal Lt. Yellow [facility] Comment on above: Performed By: #### L [id number] ####Medical Records Specialist: HANS PAULSON ([phone])[facility] ([facility])[address] GLUCOSE (MG/DL) IN URINE Normal Normal Normal (<70 ) [facility] Comment on above: Performed By: #### L [id number] ####Medical Records Specialist: HANS PAULSON ([id number])[facility] ([facility])[address] HEMOGLOBIN PRESENCE IN URINE Negative Normal Negative [facility] Comment on above: Performed By: #### L [id number] ####Medical Records Specialist: HANS PAULSON ([id number])[facility] ([facility])[address] Ketones Ql (U) Negative Normal Negative [facility] Comment on above: Performed By: #### L [id number] ####Medical Records Specialist: HANS PAULSON ([id number])[facility] ([facility])[address] LEUKOCYTE ESTERASE PRESENCE IN URINE BY TEST STRIP Negative Normal Negative [facility] Comment on above: Performed By: #### L [id number] ####Medical Records Specialist: HANS PAULSON ([id number])[facility] ([facility])[address] [place] [address] [place] MUCUS (#/LPF) IN URINE SEDIMENT Few Normal Negative [facility] Comment on above: Performed By: #### L [id number] ####Medical Records Specialist: HANS PAULSON ([phone])[facility] [place] ([facility])[address] NITRITE PRESENCE IN URINE Negative Normal Negative [facility] Comment on above: Performed By: #### L [id number] ####Medical Records Specialist: HANS PAULSON ([id number])[facility] ([facility])[address] pH (U) 6.0 [pH] Normal 5.0-8.0 [facility] Comment on above: Performed By: #### L [id number] ####Medical Records Specialist: HANS PAULSON ([phone])[facility] (SB[facility])[address] Protein (U) [Mass/Vol] 20 mg/dL Abnormal Negative [facility] Comment on above: Performed By: #### L [id number] ####Medical Records Specialist: HANS PAULSON ([phone])[facility] ([facility])[address] RBC (#/HPF) IN URINE SEDIMENT 0-2 Normal 0-2 [facility] Comment on above: Performed By: #### L [id number] ####Medical Records Specialist: HANS PAULSON ([id number])[facility] (SB[facility])[address] Specific gravity (U) [Rel density] 1.026 Normal 1.005-1.030 [facility] Comment on above: Result Comment: KYM Gonzalez COMMENTS: A specimen with <=10 WBC is not consistent with inflammation. This specimen will not reflex to a urine culture. Performed By: #### L [id number] ####Medical Records Specialist: HANS PAULSON ([id number])[facility] (SBHLAB)[address] SQUAMOUS EPITHELIAL CELLS (#/HPF) IN URINE SEDIMENT 0-2 Normal 3-5 [facility] Comment on above: Performed By: #### L [id number] ####Medical Records Specialist: HANS PAULSON ([phone])[facility] (SBHLAB)[address] UROBILINOGEN (MG/DL) IN URINE Normal Normal Normal (0-1) [facility] Comment on above: Performed By: #### L [id number] ####Medical Records Specialist: HANS PAULSON ([id number])[facility] (SBHLAB)[address] WBC (LEUKOCYTE) (#/HPF) IN URINE SEDIMENT 3-5 Normal 0-5 [facility] Comment on above: Performed By: #### L [id number] ####Medical Records Specialist: HANS PAULSON ([phone])[facility] ([facility] [place] [address] Nursing Noteon 08-08-2024 Nursing Note Called report to [facility] Pickup scheduled for 3:30pm. Normal [facility] Nursing Note Wound Care consulted for Pressure Injury Prevention. Pt's Jeri score= 17 on 08/08 Pt's pressure points assessed. Pt stood independently for posterior assessment. Pt's Heels, Buttocks/coccyx, Back, Right elbow, Occiput and ears all intact. Cast in place to left upper extremity. Steen and healed area noted to coccyx. Steen and blanchable tissues noted to bilateral heels. [...] questions or concerns. Rosalina Cross RN Normal [facility] Progress Noteon 08-08-2024 Progress Note Patient chart review ed and being rounded on. Note to follow. 6:29 AM 08/08/24 Rena Beverly MD Division of Hospitalist Medicine [facility] Normal [facility] Urinalysis complete panel (U )Ordered By: Ziyad Ruiz on 08-08-2024 Bacteria LM.HPF (Urine sed) [#/Area] Negative Negative /HPF [facility] Bilirubin Ql (U) Negative Negative mg/dL [facility] Clarity (U) Clear Clear [facility] Color (U) Yellow Lt. Yellow [facility] Epithelial cells.squamous LM.HPF (Urine sed) [#/Area] 0-2 [facility] Glucose Ql (U) Normal Normal (<70) mg/dL [facility] Hemoglobin Ql (U) Negative Negative mg/dL [facility] Interpretation and review of laboratory results Abnormal [facility] Ketones (U) [Mass/Vol] Negative Negat kenton mg/dL [facility] Leukocyte esterase Test strip Ql (U) Negative Negative Sandra/uL [facility] Mucus LM.HPF (Urine sed) [#/Area] Few Negative /LPF [facility] Nitrite Ql (U) Negative Negative [facility] th pH (U) 6.0 [pH] 5.0 - 8.0 pH [facility] Protein (U) [Mass/Vol] 20 mg/dL Abnormal Negative [facility] RBC LM.HPF (Urine sed) [#/Area] 0-2 [facility] Specific gravity (U) [Rel density] 1.026 1.005 - 1.030 [facility] Urobilinogen (U) [Mass/Vol] Normal Normal (0-1) mg/dL [facility] WBC LM.HPF (Urine sed) [#/Area] 3-5 [facility] A specimen with <=10 WBC is not consistent with inflammation. This specimen will not reflex to a urine culture. [facility] XR Chest 2 Viewson No significant change compared to the prior exam. Report Dictated on Electronically Signed By: Pawan Cordova MD Electronically Signed Date/Time: 08/08/2024 10:02 AM EDT [facility] Patient Name: GONZALO DELUCA : [...] the spine similar to prior CT imaging. [facility] Pawan Cordova MD - 08/08/2024 [...] Electronically Signed Date/Time: 08/08/2024 10:02 AM EDT [facility] Radiology Study observation (narrative) [facility] XR Chest 2 ViewsOrdered By: Pawan Cordova on 08-08-2024 [facility] Work Phone: BASIC METABOLIC PANELon 07-20 Anion gap [Moles/Vol] 7 mmol/L Normal 3-13 [facility] Comment on above: Performed By: #### L [id number] ####Medical Records Specialist: HANS PAULSON ([phone])[facility] (SBHLAB)[address] Calcium [Mass/Vol] 9.3 mg/dL Normal 8.8-10.0 [facility] Comment on above: Performed By: #### L [id number] ####Medical Records Specialist: HANS PAULSON ([phone])[facility] (SBHLAB)[address] Chloride [Moles/Vol] 101 mmol/L Normal 98-107 [facility] Comment on above: Performed By: #### L [id number] ####Medical Records Specialist: HANS PAULSON ([phone])[facility] [place] (SBHLAB)[address] CO2 [Moles/Vol] 33 mmol/L High 23-31 [facility] Comment on above: Performed By: #### L [id number] ####Medical Records Specialist: HANS PAULSON ([phone])[facility] [place] (SBHLAB)[address] Creatinine [Mass/Vol] 0.59 mg/dL Normal 0.57-1.11 [facility] Comment on above: Performed By: #### L [id number] ####Medical Records Specialist: HANS PAULSON ([phone])[facility] (SBHLAB)[address] GLOMERULAR FILTRATION RATE ML/MIN/1.73 SQ M.PREDICTED >90.0 Normal >60.0 [facility] Comment on above: Result Comment: Calc ulation based on the Chronic Kidney Disease Epidemiology Collaboration (CKD-EPI) equation refit without adjustment for race Performed By: #### L [id number] ####Medical Records Specialist: HANS PAULSON ([id number])[facility] [place] (HLAB)[address] Glucose [Mass/Vol] 124 mg/dL High 82-115 [facility] Comment on above: Performed By: #### L [id number] ####Medical Records Specialist: HANS PAULSON ([id number])[facility] (HLAB)[address] Potassium [Moles/Vol] 3.7 mmol/L Normal 3.5-5.1 [facility] Comment on above: Result Comment: [facility] potassium values may be up to 0.5 mmol/L lower than serum values. Performed By: #### L [id number] ####Medical Records Specialist: HANS PAULSON ([phone])[facility] ([facility])[address] Sodium [Moles/Vol] 141 mmol/L Normal 136-145 [facility] Comment on above: Performed By: #### L [id number] ####Medical Records Specialist: HANS PAULSON ([phone])[facility])[address] Urea nitrogen [Mass/Vol] 28 mg/dL High 9-23 [facility] Comment on above: Performed By: #### L [id number] ####Medical Records Specialist: HANS PAULSON ([phone])[facility] ([facility])[address] Basic metabolic 1998 panelon 08-07-2024 Anion gap [Moles/Vol] 7 mmol/L 3 - 13 mmol/L [facility] Calcium [Mass/Vol] 9.3 mg/dL 8.8 - 10. 0 mg/dL [facility] Chloride [Moles/Vol] 101 mmol/L 98 - 10 7 mmol/L [facility] CO2 [Moles/Vol] 33 mmol/L High 23 - 31 mmol/L [facility] Creatinine [Mass/Vol] 0.59 mg/dL 0.57 - 1.11 mg/dL [facility] Variable GFR/1.73 sq M.predicted (S/P/Bld) [Vol rate/Area] - PINF [facility] Comment on above: Calculation based on the Chronic Kidney Disease Epidemiology Collaboration (CKD-EPI) equation refit without adjustment for race Glucose [Mass/Vol] 124 mg/dL High 82 - 115 mg/dL [facility] Interpretation and review of laboratory results Abnormal [facility] Potassium [Moles/Vol] 3.7 mmol/L 3.5 - 5.1 mmol/L [facility] Comment on above: Plasma potassium martín ues may be up to 0.5 mmol/L lower than serum values. Sodium [Moles/Vol] 141 mmol/L 136 - 145 mmol/L [facility] Urea nitrogen [Mass/Vol] 28 mg/dL High 9 - 23 mg/d L [facility] CBC W Auto Differential pane l (Bld)Ordered By: Crystal Dupont on 08-07-2024 Basophils (Bld) [#/Vol] 0 10*3/uL 0.0 - 0.2 10*3/uL [facility] Basophils/100 WBC (Bld) 0.2 % 0.0 - 2.0 % [facility] Eosinophils (Bld) [#/Vol] 0.3 10*3/uL 0.0 - 0.5 10*3/uL [facility] Eosinophils/100 WBC (Bld) 3.2 % 0.0 - 6.0 % [facility] Erythrocyte distribution width (RBC) [Ratio] 14.3 % 11.5 - 15.0 % [facility] Hematocrit (Bld) [Volume fraction] 33.8 % Low 35.0 - 47.0 % [facility] Hemoglobin (Bld) [Mass/Vol] 10.5 g/dL Low 11.7 - 16.0 g/dL [facility] Immature granulocytes (Bld) [#/Vol] 0 10*3/uL NINF - 0.1 10*3/uL [facility] Variable Immature granulocytes/100 WBC (Bld) 0.1 % 0.0 - 2.0 % [facility] Interpretation and review of laboratory results Abnormal [facility] Lymphocytes (Bld) [#/Vol] 1.2 10*3/uL 1.0 - 4.3 10*3/uL [facility] Lymphocytes/100 WBC (Bld) 14.2 % Low 15.0 - 45.0 % [facility] MCH (RBC) [Entitic mass] 31.1 pg 26. 0 - 34.0 pg [facility] MCHC (RBC) [Mass/Vol] 31.1 % 30.5 - 36.0 % [facility] MCV (RBC) [Entitic vol] 100 fL High 77.0 - 99.0 fL [facility] Monocytes (Bld) [#/Vol] 0.8 10*3/uL 0.0 - 0.9 10*3/uL [facility] Monocytes/100 WBC (Bld) 9.6 % 5.0 - 13.0 % [facility] Neutrophils (Bld) [#/Vol] 6.3 10*3/uL 1.8 - 7.5 10*3/uL [facility] Neutrophils/100 WBC (Bld) 72.7 % 38.0 - 82.0 % [facility] Nucleated RBC/100 WBC (Bld) [Ratio] 0 % [facility] Platelet mean volume (Bld) [Entitic vol] 9.9 fL 9.0 - 12.7 fL [facility] Platelets (Bld) [#/Vol] 189 10*3/uL 140 - 440 10*3/uL [facility] RBC (Bld) [#/Vol] 3.38 10*6/uL Low 3.80 - 5.2 0 10*6/uL [facility] WBC (Bld) [#/Vol] 8.7 10*3/uL 3.6 - 10.7 10*3/uL [facility] CBC WITH AUTO DIFFERENTIALon 08-07-2024 Basophils (Bld) [#/Vol] 0.0 10*3/uL Normal 0.0-0.2 [facility] Comment on above: Performed By: #### L [id number] ####Medical Records Specialist: HANS PAULSON ([id number])[facility])[address] [place] [address] Basophils/100 WBC (Bld) 0.2 % Normal 0.0-2.0 [facility] Comment on above: Performed By: #### L [id number] ####Medical Records Specialist: HANS WALDROPKimESCOBAR ([id number])[facility] (SBHLAB)[address] Eosinophils (Bld) [#/Vol] 0.3 10*3/uL Normal 0.0-0.5 [facility] Comment on above: Performed By: #### L [id number] ####Medical Records Specialist: HANS ALCANTARESCOBAR ([phone])[facility] (SBHLAB)[address] Eosinophils/100 WBC (Bld) 3.2 % Normal 0.0-6.0 [facility] Comment on above: Performed By: #### L [id number] ####Medical Records Specialist: HANS LORENE ([id number])[facility] [place] (SBAB)[address] [place] [address] Erythrocyte distribution width (RBC) [Ratio] 14.3 % Normal 11.5-15.0 [facility] Comment on above: Performed By: #### L [id number] ####Medical Records Specialist: HANS LORENE ([phone])[facility] ([facility])[address] [place] [address] Hematocrit (Bld) [Volume fraction] 33.8 % Low 35.0-47.0 [facility] Comment on above: Performed By: #### L [id number] ####Medical Records Specialist: HANS PAULSON ([id number])[facility] (SBHLAB)[address] [place] [address] Hemoglobin (Bld) [Mass/Vol] 10.5 g/dL Low 11.7-16.0 [facility] Comment on above: Performed By: #### L [id number] ####Medical Records Specialist: HANS PAULSON ([id number])[facility] (SBHLAB)[address] [place] [address] IMMATURE GRANS % 0.1 % Normal 0.0-2.0 [facility] Comment on above: Performed By: #### L [id number] ####Medical Records Specialist: HANS PAULSON ([id number])[facility]AL[facility]ITAL[facility]isa (SBHLAB)[address] IMMATURE GRANS ABSOLUTE 0.0 10*3/uL Normal <0.1 [facility] Comment on above: Performed By: #### L [id number] ####Medical Records Specialist: HANS ALCANTARESCOBAR ([phone])[facility] (SB[facility])[address] Lymphocytes (Bld) [#/Vol] 1.2 10*3/uL Normal 1.0-4.3 [facility] Comment on above: Performed By: #### L [id number] ####Medical Records Specialist: HANS PAULSON ([id number])[facility] (SB[facility])[address] [place] [address] Lymphocytes/100 WBC (Bld) 14.2 % Low 15.0-45.0 [facility] Comment on above: Performed By: #### L [id number] ####Medical Records Specialist: HANS PAULSON ([phone])[facility]ITALMarisa (SBHLAB)[address] MCH (RBC) [Entitic mass] 31.1 pg Normal 26.0-34.0 [facility] Comment on above: Performed By: #### L [id number] ####Medical Records Specialist: HANS PAULSON ([id number])[facility] [place] (SBHLAB)[address] [place] [address] MCHC 31.1 % Normal 30.5-36.0 [facility] Comment on above: Performed By: #### L [id number] ####Medical Records Specialist: HANS PAULSON ([phone])[facility] ([facility])[address] MCV (RBC) [Entitic vol] 100.0 fL High 77.0-99.0 [facility] Comment on above: Performed By: #### L [id number] ####Medical Records Specialist: HANS PAULSON ([id number])[facility] (SBHLAB)[address] Monocytes (Bld) [#/Vol] 0.8 10*3/uL Normal 0.0-0.9 [facility] Comment on above: Performed By: #### L [id number] ####Medical Records Specialist: HANS PAULSON ([id number])[facility] (SBHLAB)[address] Monocytes/100 WBC (Bld) 9.6 % Normal 5.0-13.0 [facility] Comment on above: Performed By: #### L [id number] ####Medical Records Specialist: HANS PAULSON ([phone])[facility] [place] (SB[facility])[address] NEUTROPHILS ABSOLUTE 6.3 10*3/uL Normal 1.8-7.5 [facility] Comment on above: Performed By: #### L [id number] ####Medical Records Specialist: HANS PAULSON ([id number])[facility] [place] ([facility])[address] Neutrophils/100 WBC (Bld) 72.7 % Normal 38.0-82.0 [facility] Comment on above: Performed By: #### L [id number] ####Medical Records Specialist: HANS PAULSON ([id number])[facility] [place] ([facility])[address] NRBC 0.0 /100 WBCs Normal 0.0-2.0 [facility] Comment on above: Performed By: #### L [id number] ####Medical Records Specialist: HANS PAULSON ([id number])[facility] [place] ([facility])[address] Platelet mean volume (Bld) [Entitic vol] 9.9 fL Normal 9.0-12.7 [facility] Comment on above: Performed By: #### L [id number] ####Medical Records Specialist: HANS PAULSON ([phone])[facility] (SB[facility])[address] Platelets (Bld) [#/Vol] 189 10*3/uL Normal 140-440 [facility] Comment on above: Performed By: #### L [id number] ####Medical Records Specialist: HANS PAULSON ([phone])[facility] (SB[facility])[address] RBC (Bld) [#/Vol] 3.38 10*6/uL Low 3.80-5.20 [facility] Comment on above: Performed By: #### L [id number] ####Medical Records Specialist: HANS PAULSON ([id number])[facility] (SB[facility])[address] [place] [address] WBC (Bld) [#/Vol] 8.7 10*3/uL Normal 3.6-10.7 [facility] Comment on above: Performed By: #### L [id number] ####Medical Records Specialist: HANS PAULSON ([phone])[facility] ([facility])[address] [place] [address] Progress Noteon 08-07-2024 Progress Note [facility], Pulmonary Medicine [address] [place] [address] Patient - Gonzalo Deluca, Age - 68 y.o. - 1955 Room Number - [id number] B Consulting - Rena Beverly MD Primary Care Physician [id number] Date of Admission - 07/30/2024 4:40 PM [...] She is not currently following with a doctor of pharmacy. She is on Breo ellipta, Spiriva, and [...] Will sign off (more content not included)... [facility] 30on 08-06-2024 30 Problem: Knowledge Deficit Goal: [...] Interventions Goal: Dietary Supplements Outcome: Progressing Normal [facility] 30 Problem: Knowledge Deficit Goal: Patient/family/caregiv er [...] discharge needs are met Outcome: Progressing Normal [facility] 30 Problem: Knowledge Deficit Goal: Patient/family/caregiv er demonstrates understanding of disease process, treatment plan, medications, and discharge instructions Outcome: Progressing Problem: Potential for Compromised Skin Integrity Goal: Skin Integrity is Maintained or Improved Outcome: Progressing Problem: Potential for Compromised Skin Integrity Goal: Nutritional status is improving Outcome: Progressing Problem: Urinary Incontinence Goal: Perineal skin integrity is maintained or improved Outcome: Progressing Normal [facility] [id number] 08-06-2024 [id number] Spoke with pt nikolas gonzalez in the day to to determine if she wants to appeal the P2P decision denying SNF. [place] asked to go to [place]. She is in the process of trying to get to [facility] through her waiver services. She started this [...] Appeals number given to pt to call: [phone]. Appeals fax number: [phone]. Pt was calling as this CM was walking out of her room. wireless sales manager to follow and assist as needed. [facility] [phone] Spoke with patients daughter Karishma, regarding dc plans, who states that they would like to ideally get patient into long term and then get patient over to [facility] under Medicaid. This will require an insurance appeal for the long term facility. Shared this discussion with the [facility] BASIC METABOLIC PANELon 05-1 Anion gap [Moles/Vol] 7 mmol/L Normal 3-13 [facility] Comment on above: Performed By: #### L [id number] ####Medical Records Specialist: HANS PAULSON ([phone])[facility] (SBAB)[address] Calcium [Mass/Vol] 8.9 mg/dL Normal 8.8-10.0 [facility] Comment on above: Performed By: #### L [id number] ####Medical Records Specialist: HANS PAULSON ([phone])[facility] (SBHLAB)[address] Chloride [Moles/Vol] 101 mmol/L Normal 98-107 [facility] Comment on above: Performed By: #### L [id number] ####Medical Records Specialist: HANS PAULSON ([phone])[facility] (SB[facility]AB)[address] CO2 [Moles/Vol] 33 mmol/L High 23-31 [facility] Comment on above: Performed By: #### L [id number] ####Medical Records Specialist: HANS PAULSON ([phone])[facility] (SBHLAB)[address] Creatinine [Mass/Vol] 0.56 mg/dL Low 0.57-1.11 [facility] Comment on above: Performed By: #### L [id number] ####Medical Records Specialist: HANS PAULSON ([phone])[facility] (SB[facility])[address] GLOMERULAR FILTRATION RATE ML/MIN/1.73 SQ M.PREDICTED >90.0 Normal >60.0 [facility] Comment on above: Result Comment: Calc ulation based on the Chronic Kidney Disease Epidemiology Collaboration (CKD-EPI) equation refit without adjustment for race Performed By: #### L [id number] ####Medical Records Specialist: HANS PAULSON ([id number])[facility] ([facility] Glucose [Mass/Vol] 93 mg/dL Normal 82-115 [facility] Comment on above: Performed By: #### L [id number] ####Medical Records Specialist: HANS PAULSON ([id number])[facility] ([facility])[address] Potassium [Moles/Vol] 3.8 mmol/L Normal 3.5-5.1 [facility] Comment on above: Result Comment: [facility] potassium values may be up to 0.5 mmol/L lower than serum values. Performed By: #### L [id number] ####Medical Records Specialist: HANS PAULSON ([phone])[facility] ([facility])[address] Sodium [Moles/Vol] 141 mmol/L Normal 136-145 [facility] Comment on above: Performed By: #### L [id number] ####Medical Records Specialist: HANS PAULSON ([phone])[facility] ([facility] [place] [address] [place] Urea nitrogen [Mass/Vol] 27 mg/dL High 9-23 [facility] Comment on above: Performed By: #### L [id number] ####Medical Records Specialist: HANS PAULSON ([phone])[facility] ([facility] Basic metabolic 1998 panelon 08-06-2024 Anion gap [Moles/Vol] 7 mmol/L 3 - 13 mmol/L [facility] Calcium [Mass/Vol] 8.9 mg/dL 8.8 - 10. 0 mg/dL [facility] Chloride [Moles/Vol] 101 mmol/L 98 - 10 7 mmol/L [facility] CO2 [Moles/Vol] 33 mmol/L High 23 - 31 mmol/L [facility] Creatinine [Mass/Vol] 0.56 mg/dL Low 0.57 - 1.11 mg/dL [facility] GFR/1.73 sq M.predicted (S/P/Bld) [Vol rate/Area] - PINF [facility] Comment on above: Calculation based on the Chronic Kidney Disease Epidemiology Collaboration (CKD-EPI) equation refit without adjustment for race Glucose [Mass/Vol] 93 mg/dL 82 - 115 mg/dL [facility] Interpretation and review of laboratory results Abnormal [facility] Potassium [Moles/Vol] 3.8 mmol/L 3.5 - 5.1 mmol/L [facility] Comment on above: Plasma potassium martín ues may be up to 0.5 mmol/L lower than serum values. Sodium [Moles/Vol] 141 mmol/L 136 - 145 mmol/L [facility] Urea nitrogen [Mass/Vol] 27 mg/dL High 9 - 23 mg/d L [facility] CBC W Auto Differential pane l (Bld)Ordered By: Hakeem Cruz on 08-06-2024 Basophils (Bld) [#/Vol] 0.1 10*3/uL 0.0 - 0.2 10*3/uL [facility] Basophils/100 WBC (Bld) 0.6 % 0.0 - 2.0 % [facility] Eosinophils (Bld) [#/Vol] 0.3 10*3/uL 0.0 - 0.5 10*3/uL [facility] Eosinophils/100 WBC (Bld) 3.3 % 0.0 - 6.0 % [facility] Erythrocyte distribution width (RBC) [Ratio] 14 % 11.5 - 15.0 % [facility] Hematocrit (Bld) [Volume fraction] 35.3 % 35.0 - 47.0 % [facility] Hemoglobin (Bld) [Mass/Vol] 10.7 g/dL Low 11.7 - 16.0 g/dL [facility] Immature granulocytes (Bld) [#/Vol] 0 10*3/uL NINF - 0.1 10*3/uL [facility] Immature granulocytes/100 WBC (Bld) 0.4 % 0.0 - 2.0 % [facility] Interpretation and review of laboratory results Abnormal [facility] Lymphocytes (Bld) [#/Vol] 1.4 10*3/uL 1.0 - 4.3 10*3/uL [facility] Lymphocytes/100 WBC (Bld) 18.1 % 15.0 - 45.0 % [facility] MCH (RBC) [Entitic mass] 30.8 pg 26. 0 - 34.0 pg [facility] MCHC (RBC) [Mass/Vol] 30.3 % Low 30.5 - 36.0 % [facility] MCV (RBC) [Entitic vol] 101.7 fL High 77.0 - 99.0 fL [facility] Monocytes (Bld) [#/Vol] 0.8 10*3/uL 0.0 - 0.9 10*3/uL [facility] Monocytes/100 WBC (Bld) 9.6 % 5.0 - 13.0 % [facility] Neutrophils (Bld) [#/Vol] 5.3 10*3/uL 1.8 - 7.5 10*3/uL [facility] Neutrophils/100 WBC (Bld) 68 % 38.0 - 82.0 % [facility] Nucleated RBC/100 WBC (Bld) [Ratio] 0 % [facility] Platelet mean volume (Bld) [Entitic vol] 9.6 fL 9.0 - 12.7 fL [facility] Platelets (Bld) [#/Vol] 166 10*3/uL 140 - 440 10*3/uL [facility] RBC (Bld) [#/Vol] 3.47 10*6/uL Low 3.80 - 5.2 0 10*6/uL [facility] WBC (Bld) [#/Vol] 7.8 10*3/uL 3.6 - 10.7 10*3/uL [facility] CBC WITH AUTO DIFFERENTIALon 08-06-2024 Basophils (Bld) [#/Vol] 0.1 10*3/uL Normal 0.0-0.2 [facility] Comment on above: Performed By: #### L [id number] ####Medical Records Specialist: HANS ALCANTARESCOBAR ([phone])[facility] (SBHLAB)[address] Basophils/100 WBC (Bld) 0.6 % Normal 0.0-2.0 [facility] Comment on above: Performed By: #### L [id number] ####Medical Records Specialist: HNAS WALDROPIVELISSE ([phone])[facility] (SBHLAB)[address] Eosinophils (Bld) [#/Vol] 0.3 10*3/uL Normal 0.0-0.5 [facility] Comment on above: Performed By: #### L [id number] ####Medical Records Specialist: HANS WALDROPIVELISSE ([phone])[facility] (SBHLAB)[address] [place] [address] Eosinophils/100 WBC (Bld) 3.3 % Normal 0.0-6.0 [facility] Comment on above: Performed By: #### L [id number] ####Medical Records Specialist: HANS WALDROPIVELISSE ([phone])[facility] (SBHLAB)[address] Erythrocyte distribution width (RBC) [Ratio] 14.0 % Normal 11.5-15.0 [facility] Comment on above: Performed By: #### L [id number] ####Medical Records Specialist: HANS PAULSON ([id number])[facility] (SBHLAB)[address] [place] [address] Hematocrit (Bld) [Volume fraction] 35.3 % Normal 35.0-47.0 [facility] Comment on above: Performed By: #### L [id number] ####Medical Records Specialist: HANS ALCANTARESCOBAR ([phone])[facility] (SBHLAB)[address] [place] [address] Hemoglobin (Bld) [Mass/Vol] 10.7 g/dL Low 11.7-16.0 [facility] Comment on above: Performed By: #### L [id number] ####Medical Records Specialist: HANS PAULSON ([phone])[facility] (SBHL[facility])[address] IMMATURE GRANS % 0.4 % Normal 0.0-2.0 [facility] Comment on above: Performed By: #### L [id number] ####Medical Records Specialist: HANS PAULSON ([phone])[facility] (SBHLAB)[address] IMMATURE GRANS ABSOLUTE 0.0 10*3/uL Normal <0.1 [facility] Comment on above: Performed By: #### L [id number] ####Medical Records Specialist: HANS PAULSON ([id number])[facility] (SBAB)[address] [place] [address] Lymphocytes (Bld) [#/Vol] 1.4 10*3/uL Normal 1.0-4.3 [facility] Comment on above: Performed By: #### L [id number] ####Medical Records Specialist: HANS PAULSON ([phone])[facility] (SBAB)[address] [place] [address] Lymphocytes/100 WBC (Bld) 18.1 % Normal 15.0-45.0 [facility] Comment on above: Performed By: #### L [id number] ####Medical Records Specialist: HANS PAULSON ([phone])[facility] (SBHLAB)[address] [place] [address] MCH (RBC) [Entitic mass] 30.8 pg Normal 26.0-34.0 [facility] Comment on above: Performed By: #### L [id number] ####Medical Records Specialist: HANS PAULSON ([phone])[facility] (SBHLAB)[address] MCHC 30.3 % Low 30.5-36.0 [facility] Comment on above: Performed By: #### L [id number] ####Medical Records Specialist: HANS PAULSON ([phone])[facility] (SBHLAB)[address] MCV (RBC) [Entitic vol] 101.7 fL High 77.0-99.0 [facility] Comment on above: Performed By: #### L [id number] ####Medical Records Specialist: HANS PAULSON ([phone])[facility] (SBHLAB)[address] Monocytes (Bld) [#/Vol] 0.8 10*3/uL Normal 0.0-0.9 [facility] Comment on above: Performed By: #### L [id number] ####Medical Records Specialist: HANS PAULSON ([phone])[facility] [place] (SB[facility])[address] Monocytes/100 WBC (Bld) 9.6 % Normal 5.0-13.0 [facility] Comment on above: Performed By: #### L [id number] ####Medical Records Specialist: HANS PAULSON ([phone])[facility] [place] (SB[facility]AB)[address] NEUTROPHILS ABSOLUTE 5.3 10*3/uL Normal 1.8-7.5 [facility] Comment on above: Performed By: #### L [id number] ####Medical Records Specialist: HANS PAULSON ([phone])[facility] [place] (SB[facility])[address] Neutrophils/100 WBC (Bld) 68.0 % Normal 38.0-82.0 [facility] Comment on above: Performed By: #### L [id number] ####Medical Records Specialist: HANS PAULSON ([phone])[facility] [place] (SBHLAB)[address] NRBC 0.0 /100 WBCs Normal 0.0-2.0 [facility] Comment on above: Performed By: #### L [id number] ####Medical Records Specialist: HANS PAULSON ([phone])[facility] (SBHL[facility])[address] Platelet mean volume (Bld) [Entitic vol] 9.6 fL Normal 9.0-12.7 [facility] Comment on above: Performed By: #### L [id number] ####Medical Records Specialist: HANSRONALD PAULSON ([phone])[facility] [place] (SBHLAB)[address] Platelets (Bld) [#/Vol] 166 10*3/uL Normal 140-440 [facility] Comment on above: Performed By: #### L [id number] ####Medical Records Specialist: HANS LORENE ([phone])[facility] (SBHLAB)[address] [place] [address] RBC (Bld) [#/Vol] 3.47 10*6/uL Low 3.80-5.20 [facility] Comment on above: Performed By: #### L [id number] ####Medical Records Specialist: HANS LORENE ([phone])[facility] (SBHLAB)[address] [place] [address] WBC (Bld) [#/Vol] 7.8 10*3/uL Normal 3.6-10.7 [facility] Comment on above: Performed By: #### L [id number] ####Medical Records Specialist: HANS ALCANTARESCOBAR ([id number])[facility] (SBHLAB)[address] [place] [address] Progress Noteon 08-06-2024 Progress Note Nutrition Assessment [...] (interosseous) Fluid Accumulation: No significant fluid accumulation Ict Help Desk Technician Strength: Nutrition Assessment: per MD-BRIEF HOSPITAL COURSE: [...] status. Recent healthcare interactions include consultations with [facility], palliative care, pulmonology, orthopedic surgery, geriatrics, [...] 5.7 oz) % Weight Change (Calculated): -27.2 [place] Body Weight (lbs) (Calculated): 120 lbs [place] Body Weight (Kg) (Calculated): 55 kg % [place] Body Weight (Calculated): 74.2 % BMI (kg/m2) (Calculated): 15.3 Weight Adjustment For: No Adjustment BMI Categories: Underweight (BMI less than 22) age over 65 Nutrition D (more content not included)... Normal [facility] Progress Note [facility] Geriatric Medicine Inpatient Consult Service Admission [...] 5' 4 (more content not included)... Normal [facility] Progress Note PHYSICAL THERAPY [facility] Treatment Note Name/MRN: Gonzalo Deluca ([id number]) Date of : 1955 Age: 68 y.o. Room/Bed: [facility]254/[facility] B Visit #: 5 out of 7 Discharge Recommendation: [facility] Facility Other: TBD at next level of [...] to prepare (more content not included)... Normal [facility] Progress Note [facility] [place], Pulmonary Medicine [address] [place] [address] Patient - Gonzalo Deluca, Age - 68 [...] She is not currently following with a doctor of pharmacy. She is on Breo ellipta, Spiriva, and [...] up schedu (more content not included)... Normal [facility] Progress Note OCCUPATIONAL THERAPY [facility] Treatment Note Name/MRN: Gonzalo Deluca ([id number]) Date of : 1955 Age: 68 y.o. [...] of SNF. Pt would likely benefit from [facility] for longer term needs. Subjective Pt sleeping [...] Minutes (1 ADL) Roopa More, OT Normal [facility] 30on 08-05-2024 30 Problem: Knowledge Deficit Goal: [...] Goal: Assess Nutritional Intake Outcome: Progressing Normal [facility] 30 Problem: Knowledge Deficit Goal: Patient/family/caregiv er [...] Goal: Promote nutritional intake Outcome: Progressing Normal [facility] BASIC METABOLIC PANELon 05- Anion gap [Moles/Vol] 5 mmol/L Normal 3-13 [facility] Comment on above: Performed By: #### L [id number] ####Medical Records Specialist: HANS PAULSON ([phone])[facility] [place] (SBHLAB)[address] Calcium [Mass/Vol] 9.4 mg/dL Normal 8.8-10.0 [facility] Comment on above: Performed By: #### L [id number] ####Medical Records Specialist: HANS APULSON ([phone])[facility] [place] (SBHLAB)[address] [place] [address] [place] Chloride [Moles/Vol] 100 mmol/L Normal 98-107 [facility] Comment on above: Performed By: #### L AB15 ####Medical Records Specialist: HANS PAULSON ([id number])[facility] [place] (SBHLAB)[address] CO2 [Moles/Vol] 36 mmol/L High 23-31 [facility] Comment on above: Performed By: #### L AB15 ####Medical Records Specialist: HANS PAULSON ([phone])[facility] [place] (SBHLAB)[address] Creatinine [Mass/Vol] 0.57 mg/dL Normal 0.57-1.11 [facility] Comment on above: Performed By: #### L AB15 ####Medical Records Specialist: HANS PAULSON ([phone])[facility] [place] (SBHLAB)[address] GLOMERULAR FILTRATION RATE ML/MIN/1.73 SQ M.PREDICTED >90.0 Normal >60.0 [facility] Comment on above: Result Comment: Calc ulation based on the Chronic Kidney Disease Epidemiology Collaboration (CKD-EPI) equation refit without adjustment for race Performed By: #### L AB15 ####Medical Records Specialist: HANS PAULSON ([phone])[facility] [place] (SB[facility])[address] Glucose [Mass/Vol] 102 mg/dL Normal 82-115 [facility] Comment on above: Performed By: #### L AB15 ####Medical Records Specialist: HANS LORENE ([phone])[facility] (SBHLAB)[address] Potassium [Moles/Vol] 4.3 mmol/L Normal 3.5-5.1 [facility] Comment on above: Result Comment: [facility] potassium values may be up to 0.5 mmol/L lower than serum values. Performed By: #### L AB15 ####Medical Records Specialist: HANS WALDROPIVELISSE ([phone])[facility] (SBHLAB)[address] Sodium [Moles/Vol] 141 mmol/L Normal 136-145 [facility] Comment on above: Performed By: #### L AB15 ####Medical Records Specialist: HANS ALCANTARESCOBAR ([phone])[facility] (SBHLAB)[address] Urea nitrogen [Mass/Vol] 25 mg/dL High 9-23 [facility] Comment on above: Performed By: #### L AB15 ####Medical Records Specialist: HANS LORENE ([phone])[facility] (HLAB)[address] Bacteria identified Aer cx N om (Lower resp)Ordered By: Joaquina Andrade on 08-05-2024 Gram Stain Result Few Epithelial cells per low power field Abnormal [facility] Gram Stain Result Many Polymorphonucle ar leukocytes per low power field Abnormal [facility] Gram Stain Result Positive Abnormal [facility] ealt Gram Stain Result Negative Abnormal [facility] ealt Interpretation and review of laboratory results Abnormal [facility] Basic metabolic 1998 panelon 08-05-2024 Anion gap [Moles/Vol] 5 mmol/L 3 - 13 mmol/L [facility] Calcium [Mass/Vol] 9.4 mg/dL 8.8 - 10. 0 mg/dL [facility] Chloride [Moles/Vol] 100 mmol/L 98 - 10 7 mmol/L [facility] CO2 [Moles/Vol] 36 mmol/L High 23 - 31 mmol/L [facility] Creatinine [Mass/Vol] 0.57 mg/dL 0.57 - 1.11 mg/dL [facility] Variable GFR/1.73 sq M.predicted (S/P/Bld) [Vol rate/Area] - PINF [facility] Comment on above: Calculation based on the Chronic Kidney Disease Epidemiology Collaboration (CKD-EPI) equation refit without adjustment for race Glucose [Mass/Vol] 102 mg/dL 82 - 115 mg/dL [facility] Interpretation and review of laboratory results Abnormal [facility] Potassium [Moles/Vol] 4.3 mmol/L 3.5 - 5.1 mmol/L [facility] Comment on above: Plasma potassium martín ues may be up to 0.5 mmol/L lower than serum values. Sodium [Moles/Vol] 141 mmol/L 136 - 145 mmol/L [facility] Urea nitrogen [Mass/Vol] 25 mg/dL High 9 - 23 mg/d L [facility] CBC W Auto Differential pane l (Bld)Ordered By: Yair Sanchez on 08-05-2024 Basophils (Bld) [#/Vol] 0 10*3/uL 0.0 - 0.2 10*3/uL [facility] Variable Basophils/100 WBC (Bld) 0.3 % 0.0 - 2.0 % [facility] Eosinophils (Bld) [#/Vol] 0.1 10*3/uL 0.0 - 0.5 10*3/uL [facility] Variable Eosinophils/100 WBC (Bld) 0.6 % 0.0 - 6.0 % [facility] Erythrocyte distribution width (RBC) [Ratio] 13.9 % 11.5 - 15.0 % [facility] Hematocrit (Bld) [Volume fraction] 38.5 % 35.0 - 47.0 % [facility] Hemoglobin (Bld) [Mass/Vol] 12 g/dL 11.7 - 16.0 g/dL [facility] Immature granulocytes (Bld) [#/Vol] 0 10*3/uL NINF - 0.1 10*3/uL [facility] Variable Immature granulocytes/100 WBC (Bld) 0.2 % 0.0 - 2.0 % [facility] Interpretation and review of laboratory results Abnormal [facility] Lymphocytes (Bld) [#/Vol] 1.5 10*3/uL 1.0 - 4.3 10*3/uL [facility] Variable Lymphocytes/100 WBC (Bld) 14.9 % Low 15.0 - 45.0 % [facility] MCH (RBC) [Entitic mass] 31.6 pg 26. 0 - 34.0 pg [facility] MCHC (RBC) [Mass/Vol] 31.2 % 30.5 - 36.0 % [facility] MCV (RBC) [Entitic vol] 101.3 fL High 77.0 - 99.0 fL [facility] Monocytes (Bld) [#/Vol] 1.2 10*3/uL High 0.0 - 0.9 10*3/uL [facility] Monocytes/100 WBC (Bld) 12 % 5.0 - 13.0 % [facility] Neutrophils (Bld) [#/Vol] 7.1 10*3/uL 1.8 - 7.5 10*3/uL [facility] Neutrophils/100 WBC (Bld) 72 % 38.0 - 82.0 % [facility] Nucleated RBC/100 WBC (Bld) [Ratio] 0 % [facility] Platelet mean volume (Bld) [Entitic vol] 9.8 fL 9.0 - 12.7 fL [facility] Platelets (Bld) [#/Vol] 221 10*3/uL 140 - 440 10*3/uL [facility] RBC (Bld) [#/Vol] 3.8 10*6/uL 3.80 - 5.2 0 10*6/uL [facility] WBC (Bld) [#/Vol] 9.9 10*3/uL 3.6 - 10.7 10*3/uL [facility] CBC WITH AUTO DIFFERENTIALon 08-05-2024 Basophils (Bld) [#/Vol] 0.0 10*3/uL Normal 0.0-0.2 [facility] Comment on above: Performed By: #### L [id number] ####Medical Records Specialist: HANS PAULSON ([phone])[facility] ([facility])[address] [place] [address] Basophils/100 WBC (Bld) 0.3 % Normal 0.0-2.0 [facility] Comment on above: Performed By: #### L [id number] ####Medical Records Specialist: HANS PAULSON ([id number])[facility] (SBHLAB)[address] Eosinophils (Bld) [#/Vol] 0.1 10*3/uL Normal 0.0-0.5 [facility] Comment on above: Performed By: #### L [id number] ####Medical Records Specialist: HANS PAULSON ([phone])[facility] [place] (SB[facility])[address] Eosinophils/100 WBC (Bld) 0.6 % Normal 0.0-6.0 [facility] Comment on above: Performed By: #### L [id number] ####Medical Records Specialist: HANS PAULSON ([phone])[facility] (SB[facility])[address] [place] [address] Erythrocyte distribution width (RBC) [Ratio] 13.9 % Normal 11.5-15.0 [facility] Comment on above: Performed By: #### L [id number] ####Medical Records Specialist: HANS PAULSON ([id number])[facility] (SB[facility])[address] [place] [address] Hematocrit (Bld) [Volume fraction] 38.5 % Normal 35.0-47.0 [facility] Comment on above: Performed By: #### L [id number] ####Medical Records Specialist: HANS PAULSON ([phone])[facility] (SBHLAB)[address] [place] [address] Hemoglobin (Bld) [Mass/Vol] 12.0 g/dL Normal 11.7-16.0 [facility] Comment on above: Performed By: #### L [id number] ####Medical Records Specialist: HANS PAULSON ([phone])[facility] (SBHLAB)[address] IMMATURE GRANS % 0.2 % Normal 0.0-2.0 [facility] Comment on above: Performed By: #### L [id number] ####Medical Records Specialist: HANS PAULSON ([id number])[facility] (SBHLAB)[address] IMMATURE GRANS ABSOLUTE 0.0 10*3/uL Normal <0.1 [facility] Comment on above: Performed By: #### L [id number] ####Medical Records Specialist: HANS WALDROPKimESCOBAR ([id number])[facility] (SBHLAB)[address] Lymphocytes (Bld) [#/Vol] 1.5 10*3/uL Normal 1.0-4.3 [facility] Comment on above: Performed By: #### L [id number] ####Medical Records Specialist: HANS PAULSON ([id number])[facility] [place] (SB[facility])[address] Lymphocytes/100 WBC (Bld) 14.9 % Low 15.0-45.0 [facility] Comment on above: Performed By: #### L [id number] ####Medical Records Specialist: HANS PAULSON ([phone])[facility] [place] (SB[facility])[address] MCH (RBC) [Entitic mass] 31.6 pg Normal 26.0-34.0 [facility] Comment on above: Performed By: #### L [id number] ####Medical Records Specialist: HANS ALCANTARESCOBAR ([id number])[facility] [place] (SB[facility])[address] MCHC 31.2 % Normal 30.5-36.0 [facility] Comment on above: Performed By: #### L [id number] ####Medical Records Specialist: HANS PAULSON ([id number])[facility] [place] (SB[facility])[address] MCV (RBC) [Entitic vol] 101.3 fL High 77.0-99.0 [facility] Comment on above: Performed By: #### L [id number] ####Medical Records Specialist: HANS PAULSON ([id number])[facility] (SBHLAB)[address] Monocytes (Bld) [#/Vol] 1.2 10*3/uL High 0.0-0.9 [facility] Comment on above: Performed By: #### L [id number] ####Medical Records Specialist: HANS PAULSON ([phone])[facility] (SBHLAB)[address] Monocytes/100 WBC (Bld) 12.0 % Normal 5.0-13.0 [facility] Comment on above: Performed By: #### L [id number] ####Medical Records Specialist: HANS PAULSON ([phone])[facility] (SBHLAB)[address] NEUTROPHILS ABSOLUTE 7.1 10*3/uL Normal 1.8-7.5 [facility] Comment on above: Performed By: #### L [id number] ####Medical Records Specialist: HANS PAULSON ([id number])[facility] [place] (SB[facility])[address] Neutrophils/100 WBC (Bld) 72.0 % Normal 38.0-82.0 [facility] Comment on above: Performed By: #### L [id number] ####Medical Records Specialist: HANS PAULSON ([phone])[facility] [place] ([facility])[address] NRBC 0.0 /100 WBCs Normal 0.0-2.0 [facility] Comment on above: Performed By: #### L [id number] ####Medical Records Specialist: HANS PAULSON ([phone])[facility] [place] (SB[facility])[address] Platelet mean volume (Bld) [Entitic vol] 9.8 fL Normal 9.0-12.7 [facility] Comment on above: Performed By: #### L [id number] ####Medical Records Specialist: HANS PAULSON ([id number])[facility] (SBHLAB)[address] Platelets (Bld) [#/Vol] 221 10*3/uL Normal 140-440 [facility] Comment on above: Performed By: #### L [id number] ####Medical Records Specialist: HANS PAULSON ([phone])[facility] (SBHLAB)[address] RBC (Bld) [#/Vol] 3.80 10*6/uL Normal 3.80-5.20 [facility] Comment on above: Performed By: #### L [id number] ####Medical Records Specialist: HANS PAULSON ([phone])[facility] (HLAB)[address] WBC (Bld) [#/Vol] 9.9 10*3/uL Normal 3.6-10.7 [facility] Comment on above: Performed By: #### L [id number] ####Medical Records Specialist: HANS PAULSON ([phone])[facility] (SBHLAB)[address] [place] [address] Laboratory - Microbiology an d Antimicrobial susceptibilityOrdered By: Joaquina Andrade on 08-05-2024 Bacteria identified Aer cx Nom (Lower resp) Many respiratory linus present. [facility] Bacteria identified Aer cx Nom (Lower resp) Many Pseudomonas aeruginosa Abnormal [facility] Progress Noteon 08-05-2024 Progress Note PHYSICAL THERAPY [facility] Treatment Note Name/MRN: Gonzalo Deluca ([id number]) Date of : 1955 Age: 68 y.o. Room/Bed: B2254/[facility]254 B Visit #: 4 out of 7 Discharge Recommendation: [facility] Facility Other: TBD at next level of [...] and le (more content not included)... Normal [facility] [facility] Progress Note OCCUPATIONAL THERAPY [facility] Treatment Note Name/MRN: Gonzalo Deluca ([id number]) Date of : 1955 Age: 68 y.o. Room/Bed: B2-254/B2-254 B Visit #: 3 out of 6 Discharge Recommendation: [facility] Facility Equipment Needed: No Assessment Pt tolerated [...] 20 Minutes (1 THER ACT) VAN Diana/Arsenio [facility] Progress Note [facility] [place], Pulmonary Medicine [address] [place] [address] Patient - Gonzalo Deluca, Age - 68 y.o. - 1955 Room Number - B2-254/B2-254 B Consulting - Rena Beverly MD Primary Care Physician - HERMINIA CASE MD [facility] # - [id number] Date of Admission - 07/30/2024 4:40 PM [...] hematemesis melena hematuria Apparently not seeing any doctor of pharmacy recently Was on Dulera Spiriva and rescue inhaler compliant with the medication Not on NIV No PFT available in [facility] All other systems reviewed Objective Vitals: [...] Nodes: N (more content not included)... Normal [facility] 30on 08-04-2024 30 Problem: Knowledge Deficit Goal: [...] discharge needs are met Outcome: Progressing Normal [facility] 30 Problem: Knowledge Deficit Goal: Patient/family/caregiv er [...] Goal: Promote nutritional intake Outcome: Progressing Normal [facility] [id number] 08-04-2024 [id number] Was updated by attending that peer to peer was denied and patient would need to submit an appeal. The appeal number for [facility] is [phone] and fast appeal fax [phone] is not open on the weekend and this will need to be initiated on Tuesday. Discussed with patient and she wanted to discuss with her daughter prior to deciding to pursue appeal or discharge home with [facility]. She did state that her daughter was interested in getting her into an assistive living and that she has medicaid. Will update weekday TCC to follow.. Normal [facility] [id number] Called [facility] and spoke with Xiao and insurance is requesting peer to peer to be completed by 08/06 at 12 noon central standard time. Number for peer to peer is [phone] option 5. Will need members name, and ID number. Physicians are available 8-5 over the weekend central standard time. Did update attending with information to complete peer to peer. . [facility] BASIC METABOLIC PANELon 05- Anion gap [Moles/Vol] 6 mmol/L Normal 3-13 [facility] Comment on above: Performed By: #### L [id number] ####Medical Records Specialist: HANS PAULSON ([phone])[facility] ([facility])[address] Calcium [Mass/Vol] 8.4 mg/dL Low 8.8-10.0 [facility] Comment on above: Performed By: #### L AB15 ####Medical Records Specialist: HANS PAULSON ([phone])[facility] (SBHLAB)[address] Chloride [Moles/Vol] 104 mmol/L Normal 98-107 [facility] Comment on above: Performed By: #### L AB15 ####Medical Records Specialist: HANS PAULSON ([id number])[facility] (SBHLAB)[address] CO2 [Moles/Vol] 32 mmol/L High 23-31 [facility] Comment on above: Performed By: #### L [id number] ####Medical Records Specialist: HANS PAULSON ([phone])[facility] (SBHLAB)[address] Creatinine [Mass/Vol] 0.55 mg/dL Low 0.57-1.11 [facility] Comment on above: Performed By: #### L AB15 ####Medical Records Specialist: HANS [id number])[facility] (SBHLAB)[address] GLOMERULAR FILTRATION RATE ML/MIN/1.73 SQ M.PREDICTED >90.0 Normal >60.0 [facility] Comment on above: Result Comment: Calc ulation based on the Chronic Kidney Disease Epidemiology Collaboration (CKD-EPI) equation refit without adjustment for race Performed By: #### L AB15 ####Medical Records Specialist: HANS PAULSON ([phone])[facility] Glucose [Mass/Vol] 111 mg/dL Normal 82-115 [facility] Comment on above: Performed By: #### L AB15 ####Medical Records Specialist: HANS PAULSON ([id number])[facility] ([facility])[address] [place] [address] Potassium [Moles/Vol] 4.2 mmol/L Normal 3.5-5.1 [facility] Comment on above: Result Comment: [facility] potassium values may be up to 0.5 mmol/L lower than serum values. Performed By: #### L AB15 ####Medical Records Specialist: HANS PAULSON ([id number])[facility] ([facility])[address] Sodium [Moles/Vol] 142 mmol/L Normal 136-145 [facility] Comment on above: Performed By: #### L AB15 ####Medical Records Specialist: HANS PAULSON ([id number])[facility] ([facility] [place] [address] [place] Urea nitrogen [Mass/Vol] 26 mg/dL High 9-23 [facility] Comment on above: Performed By: #### L AB15 ####Medical Records Specialist: HANS PAULSON ([id number])[facility] ([facility] Basic metabolic 1998 panelon 08-04-2024 Anion gap [Moles/Vol] 6 mmol/L 3 - 13 mmol/L [facility] Calcium [Mass/Vol] 8.4 mg/dL Low 8.8 - 10. 0 mg/dL [facility] Chloride [Moles/Vol] 104 mmol/L 98 - 10 7 mmol/L [facility] CO2 [Moles/Vol] 32 mmol/L High 23 - 31 mmol/L [facility] Creatinine [Mass/Vol] 0.55 mg/dL Low 0.57 - 1.11 mg/dL [facility] GFR/1.73 sq M.predicted (S/P/Bld) [Vol rate/Area] - PINF [facility] Comment on above: Calculation based on the Chronic Kidney Disease Epidemiology Collaboration (CKD-EPI) equation refit without adjustment for race Glucose [Mass/Vol] 111 mg/dL 82 - 115 mg/dL [facility] Interpretation and review of laboratory results Abnormal [facility] Potassium [Moles/Vol] 4.2 mmol/L 3.5 - 5.1 mmol/L [facility] Comment on above: Plasma potassium martín ues may be up to 0.5 mmol/L lower than serum values. Sodium [Moles/Vol] 142 mmol/L 136 - 145 mmol/L [facility] Urea nitrogen [Mass/Vol] 26 mg/dL High 9 - 23 mg/d L [facility] CBC W Auto Differential pane l (Bld)on 08-04-2024 Basophils (Bld) [#/Vol] 0 10*3/uL 0.0 - 0.2 10*3/uL [facility] Basophils/100 WBC (Bld) 0.2 % 0.0 - 2.0 % [facility] Eosinophils (Bld) [#/Vol] 0 10*3/uL 0.0 - 0.5 10*3/uL [facility] Eosinophils/100 WBC (Bld) 0.4 % 0.0 - 6.0 % [facility] Erythrocyte distribution width (RBC) [Ratio] 13.8 % 11.5 - 15.0 % [facility] Hematocrit (Bld) [Volume fraction] 32.5 % Low 35.0 - 47.0 % [facility] Hemoglobin (Bld) [Mass/Vol] 10.2 g/dL Low 11.7 - 16.0 g/dL [facility] Immature granulocytes (Bld) [#/Vol] 0 10*3/uL NINF - 0.1 10*3/uL [facility] Immature granulocytes/100 WBC (Bld) 0.4 % 0.0 - 2.0 % [facility] Interpretation and review of laboratory results Abnormal [facility] Lymphocytes (Bld) [#/Vol] 1 10*3/uL 1.0 - 4.3 10*3/uL [facility] Lymphocytes/100 WBC (Bld) 11.8 % Low 15.0 - 45.0 % [facility] MCH (RBC) [Entitic mass] 31.6 pg 26. 0 - 34.0 pg [facility] MCHC (RBC) [Mass/Vol] 31.4 % 30.5 - 36.0 % [facility] MCV (RBC) [Entitic vol] 100.6 fL High 77.0 - 99.0 fL [facility] Monocytes (Bld) [#/Vol] 1 10*3/uL High 0.0 - 0.9 10*3/uL [facility] Monocytes/100 WBC (Bld) 11.6 % 5.0 - 13.0 % [facility] Neutrophils (Bld) [#/Vol] 6.2 10*3/uL 1.8 - 7.5 10*3/uL [facility] Neutrophils/100 WBC (Bld) 75.6 % 38.0 - 82.0 % [facility] Nucleated RBC/100 WBC (Bld) [Ratio] 0 % [facility] Platelet mean volume (Bld) [Entitic vol] 9.6 fL 9.0 - 12.7 fL [facility] Platelets (Bld) [#/Vol] 164 10*3/uL 140 - 440 10*3/uL [facility] RBC (Bld) [#/Vol] 3.23 10*6/uL Low 3.80 - 5.2 0 10*6/uL [facility] WBC (Bld) [#/Vol] 8.2 10*3/uL 3.6 - 10.7 10*3/uL [facility] CBC WITH AUTO DIFFERENTIALon 08-04-2024 Basophils (Bld) [#/Vol] 0.0 10*3/uL Normal 0.0-0.2 [facility] Comment on above: Performed By: #### L [id number] ####Medical Records Specialist: HANS PALUSON ([id number])[facility] (SBHLAB)[address] Basophils/100 WBC (Bld) 0.2 % Normal 0.0-2.0 [facility] Comment on above: Performed By: #### L [id number] ####Medical Records Specialist: HANS PAULSON ([id number])[facility] (SBHLAB)[address] Eosinophils (Bld) [#/Vol] 0.0 10*3/uL Normal 0.0-0.5 [facility] Comment on above: Performed By: #### L [id number] ####Medical Records Specialist: HANS PAULSON ([id number])[facility] ([facility])[address] Eosinophils/100 WBC (Bld) 0.4 % Normal 0.0-6.0 [facility] Comment on above: Performed By: #### L [id number] ####Medical Records Specialist: HANS PAULSON ([id number])[facility] [place] ([facility])[address] [place] [address] Erythrocyte distribution width (RBC) [Ratio] 13.8 % Normal 11.5-15.0 [facility] Comment on above: Performed By: #### L [id number] ####Medical Records Specialist: HANS PAULSON ([id number])[facility] ([facility])[address] [place] [address] Hematocrit (Bld) [Volume fraction] 32.5 % Low 35.0-47.0 [facility] Comment on above: Performed By: #### L [id number] ####Medical Records Specialist: HANS PAULSON ([id number])[facility] ([facility])[address] Hemoglobin (Bld) [Mass/Vol] 10.2 g/dL Low 11.7-16.0 [facility] Comment on above: Performed By: #### L [id number] ####Medical Records Specialist: HANS PAULSON ([id number])[facility] (SBHLAB)[address] IMMATURE GRANS % 0.4 % Normal 0.0-2.0 [facility] Comment on above: Performed By: #### L [id number] ####Medical Records Specialist: HANS PAULSON ([id number])[facility] [place] ([facility])[address] IMMATURE GRANS ABSOLUTE 0.0 10*3/uL Normal <0.1 [facility] Comment on above: Performed By: #### L [id number] ####Medical Records Specialist: HANS PAULSON ([id number])[facility] (SBHLAB)[address] Lymphocytes (Bld) [#/Vol] 1.0 10*3/uL Normal 1.0-4.3 [facility] Comment on above: Performed By: #### L [id number] ####Medical Records Specialist: HANS PAULSON ([id number])[facility] ([facility])[address] Lymphocytes/100 WBC (Bld) 11.8 % Low 15.0-45.0 [facility] Comment on above: Performed By: #### L [id number] ####Medical Records Specialist: HANS PAULSON ([id number])[facility] ([facility])[address] MCH (RBC) [Entitic mass] 31.6 pg Normal 26.0-34.0 [facility] Comment on above: Performed By: #### L [id number] ####Medical Records Specialist: HANS PAULSON ([id number])[facility] ([facility])[address] MCHC 31.4 % Normal 30.5-36.0 [facility] Comment on above: Performed By: #### L [id number] ####Medical Records Specialist: HNAS PAULSON ([id number])[facility] (SBHLAB)[address] MCV (RBC) [Entitic vol] 100.6 fL High 77.0-99.0 [facility] Comment on above: Performed By: #### L [id number] ####Medical Records Specialist: HANS PAULSON ([id number])[facility] ([facility]HLAB)[address] Monocytes (Bld) [#/Vol] 1.0 10*3/uL High 0.0-0.9 [facility] Comment on above: Performed By: #### L [id number] ####Medical Records Specialist: HANS PAULSON ([id number])[facility] ([facility])[address] Monocytes/100 WBC (Bld) 11.6 % Normal 5.0-13.0 [facility] Comment on above: Performed By: #### L [id number] ####Medical Records Specialist: HANS PAULSON ([id number])[facility] ([facility])[address] NEUTROPHILS ABSOLUTE 6.2 10*3/uL Normal 1.8-7.5 [facility] Comment on above: Performed By: #### L [id number] ####Medical Records Specialist: HANS PAULSON ([id number])[facility] ([facility])[address] Neutrophils/100 WBC (Bld) 75.6 % Normal 38.0-82.0 [facility] Comment on above: Performed By: #### L [id number] ####Medical Records Specialist: HANS PAULSON ([id number])[facility] ([facility])[address] [place] [address] [place] NRBC 0.0 /100 WBCs Normal 0.0-2.0 [facility] Comment on above: Performed By: #### L [id number] ####Medical Records Specialist: HANS PAULSON ([id number])[facility] ([facility])[address] Platelet mean volume (Bld) [Entitic vol] 9.6 fL Normal 9.0-12.7 [facility] Comment on above: Performed By: #### L [id number] ####Medical Records Specialist: HANS ALCANTARESCOBAR ([id number])[facility] (SBHL[facility])[address] Platelets (Bld) [#/Vol] 164 10*3/uL Normal 140-440 [facility] Comment on above: Performed By: #### L [id number] ####Medical Records Specialist: HANS AGUILARCER ([id number])[facility] (SBHLAB)[address] RBC (Bld) [#/Vol] 3.23 10*6/uL Low 3.80-5.20 [facility] Comment on above: Performed By: #### L [id number] ####Medical Records Specialist: HANS PAULSON ([id number])[facility] ([facility]HL[facility])[address] [place] [address] WBC (Bld) [#/Vol] 8.2 10*3/uL Normal 3.6-10.7 [facility] Comment on above: Performed By: #### L [id number] ####Medical Records Specialist: HANS ALCANTARESCOBAR ([id number])[facility] ([facility])[address] [place] [address] Progress Noteon 08-04-2024 Progress Note [facility] [place], Pulmonary Medicine [address] [place] [address] Patient - Gonzalo Deluca, Age - 68 [...] hematemesis melena hematuria Apparently not seeing any doctor of pharmacy recently Was on Dulera Spiriva and rescue inhaler compliant with the medication Not on NIV No PFT available in [facility] All other systems reviewed Objective Vitals: [...] lymphadenopathy is evid (more content not included)... [facility] Progress Note PHYSICAL THERAPY [facility] Name/MRN: Gonzalo Deluca ([id number]) Date: 08/04/2024 Chart review completed this date. PT attempted. Pt supine. Receiving breathing treatments during first attempt second attempt patient requesting PROFESSIONAL EMPLOYER CONSULTANT return after eating breakfast. Pt tray had not yet arrived. Max encouragement provided with no success. Multiple options for therapy participation provided with no success. PT will continue to follow. Will re-attempt another time/date as schedule permits. Salina Miller, PROFESSIONAL EMPLOYER CONSULTANT [facility] Progress Note Nutrition note -received consult for poor jeri <12 . Jeri is 20 -already being followed by RD. Wills [facility] 30on 08-03-2024 30 Problem: Knowledge Deficit Goal: [...] Interventions Goal: Assess Nutritional Intake Outcome: Progressing [facility] 30 Problem: Knowledge Deficit Goal: Patient/family/caregiv er [...] My discharge needs are met Outcome: Progressing [facility] [id number] 08-03-2024 [id number] Tasked weekend correctional casework specialist to follow for pending auth to [facility]. 7000 will need to be completed at the time of discharge. wireless sales manager to follow and assist as needed. [facility] [phone] Sent updated notes t o [facility] via [facility] per [facility] request. Await review and response regarding ability to accept. TCC notified. [facility] Progress Noteon 08-03-2024 Progress Note Nutrition Assessment [...] (interosseous) Fluid Accumulation: No significant fluid accumulation Ict Help Desk Technician Strength: Nutrition Assessment: 68 year old woman who remains admitted to [facility] at direction of PCP with FTT- [...] 122.35# 09/08/23) % Weight Change (Calculated): -24.3 [place] Body Weight (lbs) (Calculated): 120 lbs [facility] [place] Body Weight (Kg) (Calculated): 55 kg % [facility] [place] Body Weight (Calculated): 77.2 % BMI (kg/m2) [...] Nutrition Supplement Celeste Garcia, LAILAN, LDN, Contact: *[phone] Normal [facility] Progress Note [facility] Geriatric Medicine Inpatient Consult Service Admission [...] waiver --08/03: Discharge plan is SNF - [facility] when medically stable Severe Malnutrition --continue Mirtazapine [...] note, this was the dose recommended by [facility] psychiatry when she was hospitalized in [...] deficits. --Recommend outpatient follow up at [facility]) for more in depth cognitive [...] (BP Locati (more content not included)... Normal [facility] Progress Note PHYSICAL THERAPY [facility] Treatment Note Name/MRN: Gonzalo Deluca ([id number]) Date of : 1955 Age: 68 y.o. Room/Bed: B2-254/[facility]254 B Visit #: 3 out of 7 visits Discharge Recommendation: [facility] Facility Other: TBD at next level of [...] 07/31/24 Expe (more content not included)... Normal [facility] Progress Note OCCUPATIONAL THERAPY [facility] Treatment Note Name/MRN: Gonzalo Deluca ([id number]) Date of : 1955 Age: 68 y.o. Room/Bed: B2-254/B2254 B Visit #: 2 out of 6 visits Discharge Recommendation: [facility] Facility Equipment Needed: No Prior Level of Function Prior Level of ADL Function: Independent Prior Level of Mobility: Independent; Device: Straight Cane Prior Level of Transfers: Independent Assessment Pt tolerated session fair, continues to be limited by fatigue and SOB. Pt completed bed mobility at [facility] I. Pt completed x3 STS and LE dressing/bathing at [employer]. Pt completed seated UE bathing at Mod [...] doffed pants with unilateral UE support at [employer]. Pt demo no overt LoB. Pt demo threading LE clothing while seated and managed over hips in standing at [employer]. Pt doffed/donned austin socks while seated EOB with figure 4 tech at [facility] I. Pt completed seated face washing at EOB at [facility] I. Pt completed UE bathing while seated EOB with Mod A after set up. Pt with IV running and in personal shirt, unable to fully doff shirt for bathing. Pt required assist to wash R side due to LUE with cast. Pt completed standing LE bathing (periarea) at [employer]. Pt demo no overt LoB, generally unstable. Pt required seated rest break x2 due to increased SOB. Pt completed BLE bathing while seated without hands on assist Bed Mobility Supine to sit: Modified Independent Sit to supine: Modified Independent Scooting: Modified Independent HOB Elevated Use of bed rail(s) Pt completed all aspects of bed mobility with use of bed features at [facility] I. Pt able to maintain LUE NWB throughout. Transfers/Mobility Sit to stand: Contact Guard Stand to sit: Contact Guard, Pt completed x3 STS from EOB without device at [employer]. Pt ed on proper tech to maintain LUE NWB, demo good teachback. Pt denied dizziness but demo SOB Sitting balance: Independent Standing balance: Contact Guard Pt completed standing ADL tasks at [employer]. Pt demo instability but no overt LoB. [...] 08/07/24 T (more content not included)... Normal [facility] Progress Note [facility] [place], Pulmonary Medicine [address] [place] [address] Patient - Gonzalo Deluca, Age - 68 y.o. - 1955 Room Number - B2-254/B2-254 B Consulting - Rena Beverly MD Primary Care Phys[id number] Date of Admission - 07/30/2024 4:40 PM [...] hematemesis melena hematuria Apparently not seeing any doctor of pharmacy recently Was on Dulera Spiriva and rescue inhaler compliant with the medication Not on NIV No PFT available in [facility] All other systems reviewed Objective Vitals: [...] No ai (more content not included)... Normal [facility] Progress Note H: No results for [...] HCT 37.0 07/30/2024 PLT 225 07/30/2024 Normal [facility] 30on 08-02-2024 30 Problem: Knowledge Deficit Goal: [...] discharge needs are met Outcome: Progressing Normal [facility] 30 Problem: Knowledge Deficit Goal: Patient/family/caregiv er [...] discharge needs are met Outcome: Progressing Normal [facility] Progress Noteon 08-02-2024 Progress Note PHYSICAL THERAPY [facility] Treatment Note Name/MRN: Gonzalo Deluca ([id number]) Date of : 1955 Age: 68 y.o. Room/Bed: -254/[facility] B Visit #: 2 out of 7 visits Discharge Recommendation: Continue to assess pending progress, [facility] Facility Other: TBD at next level of [...] healing a (more content not included)... Normal [facility] Progress Note [facility] Inpatient Consult Service Admission [...] fracture, Vitamin D deficiency, anxiety, presented to [facility] on 07/30/24 with complaints of weight [...] Pulse 87 (more content not included)... Normal [facility] Progress Note OCCUPATIONAL THERAPY [facility] Treatment Note Name/MRN: Gonzalo Deluca ([id number]) Date of : 1955 Age: 68 y.o. Room/Bed: [facility]254/[facility] B Visit #: 1 out of 6 visits Discharge Recommendation: M[facility] Facility, Continue to assess pending progress Equipment [...] standard toil (more content not included)... Normal [facility] Progress Note H: Recent Labs 07/30/24 1729 [...] HCT 37.0 07/30/2024 PLT 225 07/30/2024 Normal [facility] Progress Note [facility], Pulmonary Medicine [address] [place], [place] [id number] Patient - Gonzalo Deluca, Age - 68 y.o. - 1955 Room Number - B2-254/B2-254 B Consulting - Dejuan Bishop MD Primary Care Physician - [id number] Date of Admission - 07/30/2024 4:40 PM [...] hematemesis melena hematuria Apparently not seeing any doctor of pharmacy recently Was on Dulera Spiriva and rescue inhaler compliant with the medication Not on NIV No PFT available in [facility] All other systems reviewed Objective Vitals: [...] Small amount (more content not included)... Normal [facility] 30on 08-01-2024 30 Problem: Knowledge Deficit Goal: [...] discharge needs are met Outcome: Progressing Normal [facility] Consulton 08-01-2024 Consult [facility], Pulmonary Medicine [address] [place] [id number] Patient - Gonzalo Deluca - 1955 Date [...] hematemesis melena hematuria Apparently not seeing any doctor of pharmacy recently Was on Dulera Spiriva and rescue [...] - Unmet Transportation Needs (06/06/2024) [facility] [facility] - Transportation Lack of Transportation (Medical): Yes Lack of Transportation (Non-Medical): No Physical Activity: Insufficiently Active (07/31/2024) Exercise Vital Sign Days of Exercise per Week: 3 days Minutes of Exercise per Session: 20 min Stress: No Stress Concern Present (07/31/2024) [place] of [facility]ational [facility] - Occupational Stress Questionnaire Feeling of Stress : Only a little Recent Concern: Stress - Stress Concern Present (06/06/2024) Received from [facility] of Occupational Health - Occupational Stress Questionnaire Feeling of Stress : To some extent Social Connections: Socially Isolated (07/31/2024) Social Connection and Isolation Panel [NHANES] Frequency of Communication with Friends and Family: Three times a week Frequency of Social Gatherings with Friends and Family: Three times a week Attends Mandaen Services: Never Active Member of Clubs or [...] PRN alendronate (more content not included)... Normal [facility] PNEUMONIA PCR PANELon 2024 PNEUMONIA PCR PANEL [...] IMP, KPC, NDM, OXA-48-like, and VIM. Normal [facility] Comment on above: Performed By: #### L [id number], [id number] ####Medical Records Specialist: AMELIE ELIZABETH ([phone])[facility] ([address] Progress Noteon 08-01-2024 Progress Note PHYSICAL THERAPY [facility] Treatment Note Name/MRN: Gonzalo Ferris Raudelyahir ([id number]) Date of : 1955 Age: 68 y.o. Room/Bed: [facility] B Visit #: 1 out of 7 visits Discharge Recommendation: Continue to assess pending progress, [facility] Facility Other: TBD at next level of [...] Patient kari (more content not included)... Normal [facility] Progress Note [facility] Geriatric Medicine Inpatient Consult Service Admission [...] deficits. --Recommend outpatient follow up at [facility]) for more in depth cognitive [...] fracture, Vitamin D deficiency, anxiety, presented to [facility] on 07[facility]24 with complaints of weight [...] (49 kg (more content not included)... Normal [facility] Progress Note Speech-Language Pathology SPEECH LANGUAGE PATHOLOGY [facility] Dysphagia Treatment Note Patient Name: Gonzalo Deluca Evaluation Date: 08/01/2024 Date of : 1955 Admission Date: 07/30/2024 4:40 PM Age: 68 y.o. Room/Bed: [facility] B Subjective Patient alert and cooperative. Seen [...] Plus 07/31/24 1030 07/31/24 1031 Supplement:HS Snack; [place] Ensure Plus Until discontinued Question Answer Comment Frequency HS Snack Select supplement: [place] Ensure Plus 07/31/24 1030 07/30/24 2313 Adult [...] bites/sips Patient has achieved all acute care MARINE CARGO INSPECTOR goals. Speech therapy to sign off at [...] Expected End: 08/07/24 Resolved: 08/01/24 Therapy Time MARINE CARGO INSPECTOR Individual Minutes Time In: 0830 Time Out: 0840 Minutes: 10 Amelie Esquivel MARINE CARGO INSPECTOR Normal [facility] Progress Note H: Recent Labs 07/30/24 1729 [...] HCT 37.0 07/30/2024 PLT 225 07/30/2024 Normal [facility] RESPIRATORY CULTURE AND STAI Non 08-01-2024 RESPIRATORY [...] Non-susceptible NO = No Interpretation ] Normal [facility] Comment on above: Performed By: #### L [id number], [id number] #### Medical Records Specialist: AMELIE ELIZABETH ([phone]) [facility] ([facility]) [address] [place] [address] Respiratory pathogens DNA an d RNA panel MILANA+non-probe (Lower resp)Ordered By: Calvin Brown on 08-01-2024 Acinetobacter baumannii complex Not detected Not Detected [facility] Adenovirus Not detected Not Detected [facility] Chlamydia pneumoniae Not detected Not Detected [facility] Enterobacter cloacae complex Not detected Not Detected [facility] Escherichia coli Not detected Not Detected [facility] FLUAV RNA MILANA+non-probe Ql (Lower resp) Not detected Not Detected [facility] FLUBV RNA MILANA+non-probe Ql (Lower resp) Not detected Not Detected [facility] Haemophilus influenzae Not detected Not Detecte d [facility] Human Metapneumovirus Not detected Not Detected [facility] Human Rhinovirus/Enterovirus Not detected Not Detected [facility] Interpretation and review of laboratory results Abnormal [facility] Klebsiella (Enterobacter) aerogenes Not detected Not Detected [facility] ealt Klebsiella oxytoca Not detected Not Detected [facility] Klebsiella pneumoniae Not detected Not Detected [facility] Legionella pneumophila Not detected Not Detecte d [facility] Moraxella catarrhalis Detected Abnormal Not Detected [facility] Mycoplasma pneumoniae Not detected Not Detected [facility] Parainfluenza virus Not detected Not Detected [facility] Proteus spp Not detected Not Detected [facility] Pseudomonas aeruginosa Detected Abnormal Not Detected [facility] RSV RNA MILANA+probe Ql (Resp) Not detected Not Detected [facility] S. agalactiae Org specific cx Ql (Vag fld) Detected Abnormal Not Detected [facility] SARS-CoV-2 (COVID-19) RNA MILANA+non-probe Ql (Nph) Not detected Not Detected [facility] SARS-CoV-2 (COVID-19) RNA MILANA+probe Ql (Unsp spec) Methodology: Multiplex PCR This panel does not test for SARS-CoV-2 (Covid-19). The following antimicrobial resistance gene is reported if the appropriate organism is detected: mecA. The following antimicrobial resistance genes are reported if detected and the appropriate organisms are detected: CTX-M, IMP, KPC, NDM, OXA-48-like, and VIM. [facility] Serratia marcescens Not detected Not Detected [facility] Staphylococcus aureus Not detected Not Detected [facility] Streptococcus pneumoniae Not detected Not Detec tommy [facility] Streptococcus pyogenes Not detected Not Detecte d [facility] [id number] 07-31-2024 [id number] Anchor Operator following case for Discharge Needs. Normal [facility] System [facility] [id number] 07-31-2024 [id number] [facility] Group Palliative Care Transitions of [...] short of breath when trying to eat. -Veterinary Laboratory Technician would be helpful. -BMI 15.28 -Albumin-->3.0 -Monitor. [...] Skilled Rehab Facility FACILITY/HOME CARE AGENCY NAME: [facility] Follow up with [facility] on office to call patient. [...] SIGNED: DB Aggarwal CNP 08/03/2024, 10:20 AM [facility] [phone] Rounds this am DCP: TBD Need PT/OT [...] scheduled appointment 93% on 5L last read [facility] CRP [Mass/Vol]on 07-31-2024 Interpretation and review of laboratory results Normal [facility] CT Abdomen and Pelvis WO and W [...] MD Electronically Signed Date/Time: 07/31/2024 4:14 PM [facility]ON[facility] 1955 [id number] Exam Date/Time: 07/31/2024 15:25 Procedure: CT CHEST [...] No destructive bone lesion or acute fractures. [facility] Brando Tejada M D - 07/31/2024 Patient Name: GONZALO DELUCA : 1955 [facility]#: [id number] Exam Date/Time: 07/31/2024 15:25 Procedure: CT CHEST [...] Electronically Signed Date/Time: 07/31/2024 4:14 PM EDT [facility] Radiology Study observation (narrative) [facility] CT Abdomen and Pelvis WO and W contrast IVOrdered By: Brando Tejada on 07-31-2024 [facility] Variable Work Phone: CT CHEST ABDOMEN PELVIS W CO NTRASTon 07-31-2024 CT CHEST ABDOMEN PELVIS W CONTRAST Patient Name: GONZALO DELUCA : 1955 [facility]#: [id number] Exam Date/Time: 07/31/2024 15:25 Procedure: CT CHEST [...] has a history of cervical cancer. Normal [facility] Consulton 07-31-2024 Consult Nutrition Assessment Type and Reason for Visit: Initial, Consult (poor po - needs high calorie supplement) Nutrition Recommendations/Plan: Suggest to continue regular diet to promote intake. 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 -Veterinary Laboratory Technician would be helpful. -BMI 15.28 -Albumin-->3.0 -Monitor. [...] with primary attending or other consultants, Electronic service order dispatcher chief of medications, tests or procedures, Obtaining and/or [...] on percocet chronically for years. [facility]. Would refer to [...] care s (more content not included)... Normal [facility] Consult [facility] Geriatric Medicine Inpatient Consult Service [...] deficits. --Recommend outpatient follow up at [facility]) for more in depth [...] fracture, Vitamin D deficiency, anxiety, presented to [facility] on 07/30/24 with complaints of weight [...] memory issues for a year with progression. [place] she was managing her medications ok. Daughter felt she needed more help in the home. Lives with daughter and granddaughter. Psychiatry evaluated patient and medication adjusted. Nursing Delirium Screen (Nu-Desc): Nursing Delirium Symptom Checklist Total Score: 0 Conversation with caregiver: Karishma daughter -Secluded to herself. -Likes sweets and (more content not included)... Normal [facility] Consult Inpatient consult to orthopaedic surgery--left elbow [...] topically 2 times daily. 02/18/23 Yes Earlene Echaavrria MD Fluticasone Furoate-Vilanterol (Breo Ellipta) 200-25 MCG/ACT [...] and [place] (more content not included)... Normal [facility] Laboratory - Chemistry and C hemistry - challengeon 07-31-2024 TSH Qn 0.28 m[IU]/L Low [facility] Procalcitonin [Mass/Vol] 0.03 ng/mL NICHOLAS F - 0.07 ng/mL [facility] CRP [Mass/Vol] 1.4 mg/L [facility] 5.[facility] mg/L [facility] Procalcitonin [Mass/Vol]on 0 07-31-2024 Interpretation and review of laboratory results Normal [facility] PCT <0.50 = Low risk of severe sepsis and/or septic shock. PCT >2.00 = High risk of severe sepsis and/or septic shock. [facility] Progress Noteon 07-31-2024 Progress Note Speech-Language Pathology SPEECH LANGUAGE PATHOLOGY [facility] SPEECH THERAPY DIET RECOMMENDATIONS Diet: Regular solids (SOFT CHOICES as NEEDED)and Thin liquids Medications: as tolerated Precautions: - Upright positioning for all PO intake - Slow rate of intake - Small bites/sips Normal [facility] Progress Note Speech-Language Pathology SPEECH LANGUAGE PATHOLOGY [facility] Bedside Swallow Evaluation Patient Name: Gonzalo Deluca Evaluation Date: 07/31/2024 Date of : 1955 Admission Date: 07/30/2024 4:40 PM Age: 68 y.o. Room/Bed: [facility] B IMPRESSION: No s/s oropharyngeal dysphagia. [...] needed. Pt would benefit from skilled acute MARINE CARGO INSPECTOR services Ensure patient tolerance of the recommended [...] be evaluated. Dysphagia History: No history of MARINE CARGO INSPECTOR services in EMR with retrospective chart review Baseline Diet: Regular diet with thin liquids Current Diet: Dietary Orders (From admission, onward) Start Ordered 07/31/24 1031 Supplement:AM Snack, PM Snack; [place] Ensure Plus Until discontinued Question Answer Comment Frequency AM Snack Frequency PM Snack Select supplement: [place] Ensure Plus 07/31/24 1030 07/31/24 1031 Supplement:HS Snack; [place] Ensure Plus Until discontinued Question Answer Comment Frequency HS Snack Select supplement: [place] Ensure Plus 07/31/24 1030 07/30/24 2313 Adult [...] 09/20/2023 Lumbar compression fracture, closed, initial encounter ([facility]) 02/13/2023 Nondisplaced fracture of neck of left femur ([facility]) 11/06/2022 Other specified complication of vascular prosthetic devices, implants and grafts, initial encounter ([facility]) 08/06/2021 Poor venous access 12/19/2019 H/O: CVA (cerebrovascular accident) 12/14/2019 Malignant neoplasm of exocervix ([facility]) 11/07/2019 S/P hysterectomy 11/07/2019 PNA (pneumonia) 08/02/2019 Leukocytosis 04/13/2018 Shortness of breath 04/13/2018 DDD (degenerative disc disease), cervical 04/12/2018 Recurrent major depression ([facility]) 04/12/2018 Chronic back pain 04/10/2017 COPD (chronic obstructive pulmonary disease) ([facility]) 04/10/2017 Pulmonary nodule 04/10/2017 Sciatica 04/10/2017 Supplemental [...] States was sent by PCP Shortness of [id number] y.o. who presents to the emergency department [...] sent to (more content not included)... Normal [facility] Progress Note PHYSICAL THERAPY [facility] Name/MRN: Gonzalo Barrington Deluca ([id number]) Date: 07/31/2024 Chart review completed. Patient is currently OOR for testing and not available to participate in PT session. Will continue to follow and re-attempt as appropriate. Jennifer Esparza, PT [facility] Progress Note Nutrition Assessment Type and Reason for Visit: Initial, Consult (poor po - needs high calorie supplement) Nutrition Recommendations/Plan: Suggest to continue regular diet to promote intake. Upper dentures not here- denies issues -denies assist status- MARINE CARGO INSPECTOR ordered per MNT protocol , will initiate [...] (interosseous) Fluid Accumulation: No significant fluid accumulation Ict Help Desk Technician Strength: na Nutrition Assessment: per MD-CHIEF COMPLAINT [...] lb) (08/06/24) % Weight Change (Calculated): -28.8 [place] Body Weight (lbs) (Calculated): 120 lbs [place] Body Weight (Kg) (Calculated): 55 kg % [place] Body Weight (Calculated): 74.2 % BMI (kg/m2) [...] Oral Nutrition Supplement Phillip Bradshaw RD Contact: *[phone] or secure chat Normal [facility] RESPIRATORY PATHOGENS PANEL BY PCRon 07-31-2024 RESPIRATORY [...] Detected ORDER COMMENTS: Methodology: Multiplex PCR Normal [facility] Comment on above: Performed By: #### L [id number], [id number] #### Medical Records Specialist: AMELIE ELIZABETH ([id number]) [facility] ([id number] Respiratory pathogens DNA an d RNA panel MILANA+non-probe (Nph)on 07-31-2024 Adenovirus Not detected Not Detected [facility] B. pertussis DNA MILANA+probe Ql (Unsp spec) Not detected Not Detected [facility] ealt Bordetella parapertussis Not detected Not Detec tommy [facility] Chlamydia pneumoniae Not detected Not Detected [facility] Coronavirus 229E Not detected Not Detected [facility] Coronavirus HKU1 Not detected Not Detected [facility] Coronavirus NL63 Not detected Not Detected [facility] Coronavirus OC43 Not detected Not Detected [facility] FLUAV RNA MILANA+non-probe Ql (Nph) Not detected Not Detected [facility] FLUBV RNA MILANA+non-probe Ql (Nph) Not detected Not Detected [facility] Human Metapneumovirus Not detected Not Detected [facility] Human Rhinovirus/Enterovirus Not detected Not Detected [facility] Interpretation and review of laboratory results Normal [facility] Mycoplasma pneumoniae Not detected Not Detected [facility] Parainfluenza 1 Not detected Not Detected [facility] Parainfluenza 2 Not detected Not Detected [facility] Parainfluenza 3 Not detected Not Detected [facility] Parainfluenza 4 Not detected Not Detected [facility] Respiratory Syncytial Virus Not detected Not Detected [facility] SARS-CoV-2 (COVID-19) RNA MILANA+non-probe Ql (Nph) Not detected Not Detected [facility] Methodology: Multipl ex PCR [facility] TSH Qnon 07-31-2024 Interpretation and review of laboratory results Abnormal [facility] BASIC METABOLIC PANELon 07-19 Anion gap [Moles/Vol] 4 mmol/L Normal 3-13 [facility] Comment on above: Performed By: #### L [id number], [id number] #### Medical Records Specialist: AMELIE ELIZABETH ([phone]) [facility] ([facility]) [address] [place] [address] Calcium [Mass/Vol] 8.8 mg/dL Normal 8.8-10.0 [facility] Comment on above: Performed By: #### L [id number], [id number] #### Medical Records Specialist: AMELIE ELIZABETH ([phone]) [facility] ([facility]) [address] [place] [address] [place] Chloride [Moles/Vol] 103 mmol/L Normal 98-107 [facility] Comment on above: Performed By: #### L [id number], [id number] #### Medical Records Specialist: AMELIE ELIZABETH ([id number]) [facility] ([facility]) [address] [place] [address] CO2 [Moles/Vol] 37 mmol/L High 23-31 [facility] Comment on above: Performed By: #### L [id number], [id number] #### Medical Records Specialist: AMELIE ELIZABETH ([phone]) [facility] ([facility]) [address] [place] [address] Creatinine [Mass/Vol] 0.63 mg/dL Normal 0.57-1.11 [facility] Comment on above: Performed By: #### L [id number], [id number] #### Medical Records Specialist: AMELIE ELIZABETH ([id number]) [facility] ([facility]) [address] [place] [address] GLOMERULAR FILTRATION RATE ML/MIN/1.73 SQ M.PREDICTED >90.0 Normal >60.0 [facility] Comment on above: Result Comment: Calc ulation based on the Chronic Kidney Disease Epidemiology Collaboration (CKD-EPI) equation refit without adjustment for race Performed By: #### L [id number], [id number] #### Medical Records Specialist: AMELIE ELIZABETH ([id number]) [facility] ([facility]) [address] [place] [address] [place] Glucose [Mass/Vol] 80 mg/dL Low 82-115 [facility] Comment on above: Performed By: #### L [id number], [id number] #### Medical Records Specialist: AMELIE ELIZABETH ([phone]) [facility] ([facility]) [address] [place] [address] Potassium [Moles/Vol] 5.0 mmol/L Normal 3.5-5.1 [facility] Comment on above: Result Comment: [facility] potassium values may be up to 0.5 mmol/L lower than serum values. Performed By: #### L [id number], [id number] #### Medical Records Specialist: AMELIE ELIZABETH ([id number]) [facility] ([facility]) [address] [place] [address] [place] Sodium [Moles/Vol] 144 mmol/L Normal 136-145 [facility] Comment on above: Performed By: #### L [id number], [id number] #### Medical Records Specialist: AMELIE ELIZABETH ([id number]) [facility] ([facility]) [address] [place] [address] [place] Urea nitrogen [Mass/Vol] 16 mg/dL Normal 9-23 [facility] Comment on above: Performed By: #### L AB900, [id number] #### Medical Records Specialist: AMELIE ELIZABETH ([phone]) [facility] ([facility]) [address] Basic metabolic 1998 panelon 07-30-2024 Anion gap [Moles/Vol] 4 mmol/L 3 - 13 mmol/L [facility] Calcium [Mass/Vol] 8.8 mg/dL 8.8 - 10. 0 mg/dL [facility] Chloride [Moles/Vol] 103 mmol/L 98 - 10 7 mmol/L [facility] CO2 [Moles/Vol] 37 mmol/L High 23 - 31 mmol/L [facility] Creatinine [Mass/Vol] 0.63 mg/dL 0.57 - 1.11 mg/dL [facility] GFR/1.73 sq M.predicted (S/P/Bld) [Vol rate/Area] - PINF [facility] Comment on above: Calculation based on the Chronic Kidney Disease Epidemiology Collaboration (CKD-EPI) equation refit without adjustment for race Glucose [Mass/Vol] 80 mg/dL Low 82 - 115 mg/dL [facility] Potassium [Moles/Vol] 5 mmol/L 3.5 - 5.1 mmol/L [facility] Comment on above: Plasma potassium martín ues may be up to 0.5 mmol/L lower than serum values. Sodium [Moles/Vol] 144 mmol/L 136 - 145 mmol/L [facility] Urea nitrogen [Mass/Vol] 16 mg/dL 9 - 23 mg/d L [facility] C-REACTIVE PROTEINon 025 CRP [Mass/Vol] 1.4 mg/L Normal <5.0 [facility] Comment on above: Performed By: #### L [id number], [id number] #### Medical Records Specialist: AMELIE ELIZABETH ([phone]) [facility] ([facility]) [address] [place] [address] CBC W Auto Differential pane l (Bld)Ordered By: Eh Alves on 07-30-2024 Basophils (Bld) [#/Vol] 0 10*3/uL 0.0 - 0.2 10*3/uL [facility] Basophils/100 WBC (Bld) 0.4 % 0.0 - 2.0 % [facility] Eosinophils (Bld) [#/Vol] 0.2 10*3/uL 0.0 - 0.5 10*3/uL [facility] Eosinophils/100 WBC (Bld) 2.7 % 0.0 - 6.0 % [facility] Erythrocyte distribution width (RBC) [Ratio] 13.4 % 11.5 - 15.0 % [facility] Hematocrit (Bld) [Volume fraction] 37 % 35.0 - 47.0 % [facility] Hemoglobin (Bld) [Mass/Vol] 11.2 g/dL Low 11.7 - 16.0 g/dL [facility] Immature granulocytes (Bld) [#/Vol] 0 10*3/uL NINF - 0.1 10*3/uL [facility] Immature granulocytes/100 WBC (Bld) 0.3 % 0.0 - 2.0 % [facility] Interpretation and review of laboratory results Abnormal [facility] Lymphocytes (Bld) [#/Vol] 1 10*3/uL 1.0 - 4.3 10*3/uL [facility] Lymphocytes/100 WBC (Bld) 10.7 % Low 15.0 - 45.0 % [facility] MCH (RBC) [Entitic mass] 31.3 pg 26. 0 - 34.0 pg [facility] MCHC (RBC) [Mass/Vol] 30.3 % Low 30.5 - 36.0 % [facility] MCV (RBC) [Entitic vol] 103.4 fL High 77.0 - 99.0 fL [facility] Monocytes (Bld) [#/Vol] 0.5 10*3/uL 0.0 - 0.9 10*3/uL [facility] Monocytes/100 WBC (Bld) 5.5 % 5.0 - 13.0 % [facility] Neutrophils (Bld) [#/Vol] 7.2 10*3/uL 1.8 - 7.5 10*3/uL [facility] Neutrophils/100 WBC (Bld) 80.4 % 38.0 - 82.0 % [facility] Nucleated RBC/100 WBC (Bld) [Ratio] 0 % [facility] Variable Platelet mean volume (Bld) [Entitic vol] 9.5 fL 9.0 - 12.7 fL [facility] Platelets (Bld) [#/Vol] 225 10*3/uL 140 - 440 10*3/uL [facility] RBC (Bld) [#/Vol] 3.58 10*6/uL Low 3.80 - 5.2 0 10*6/uL [facility] WBC (Bld) [#/Vol] 8.9 10*3/uL 3.6 - 10.7 10*3/uL [facility] CBC WITH AUTO DIFFERENTIALon 07-30-2024 Basophils (Bld) [#/Vol] 0.0 10*3/uL Normal 0.0-0.2 [facility] Comment on above: Performed By: #### L [id number] ####Medical Records Specialist: HANS PAULSON ([id number])[facility] ([facility] [place] [address] Basophils/100 WBC (Bld) 0.4 % Normal 0.0-2.0 [facility] Comment on above: Performed By: #### L [id number] ####Medical Records Specialist: HANS PAULSON ([phone])[facility] [place] ([facility])[address] Eosinophils (Bld) [#/Vol] 0.2 10*3/uL Normal 0.0-0.5 [facility] Comment on above: Performed By: #### L [id number] ####Medical Records Specialist: HANS PAULSON ([phone])[facility] [place] ([facility])[address] Eosinophils/100 WBC (Bld) 2.7 % Normal 0.0-6.0 [facility] Comment on above: Performed By: #### L [id number] ####Medical Records Specialist: HANS PAULSON ([phone])[facility] [place] ([facility])[address] Erythrocyte distribution width (RBC) [Ratio] 13.4 % Normal 11.5-15.0 [facility] Comment on above: Performed By: #### L [id number] ####Medical Records Specialist: HANS PAULSON ([phone])[facility] [place] ([facility])[address] Hematocrit (Bld) [Volume fraction] 37.0 % Normal 35.0-47.0 [facility] Comment on above: Performed By: #### L [id number] ####Medical Records Specialist: HANS ALCANTARESCOBAR ([phone])[facility] ([facility])[address] Hemoglobin (Bld) [Mass/Vol] 11.2 g/dL Low 11.7-16.0 [facility] Comment on above: Performed By: #### L [id number] ####Medical Records Specialist: HANS ALCANTARESCOBAR ([phone])[facility] [place] [address] IMMATURE GRANS % 0.3 % Normal 0.0-2.0 [facility] Comment on above: Performed By: #### L [id number] ####Medical Records Specialist: HANS ALCANTARESCOBAR ([id number])[facility])[address] IMMATURE GRANS ABSOLUTE 0.0 10*3/uL Normal <0.1 [facility] Comment on above: Performed By: #### L [id number] ####Medical Records Specialist: HANS ALCANTARESCOBAR ([phone])[facility])[address] Lymphocytes (Bld) [#/Vol] 1.0 10*3/uL Normal 1.0-4.3 [facility] Comment on above: Performed By: #### L [id number] ####Medical Records Specialist: HANS PAULSON ([phone])[facility])[address] Lymphocytes/100 WBC (Bld) 10.7 % Low 15.0-45.0 [facility] Comment on above: Performed By: #### L [id number] ####Medical Records Specialist: HANS PAULSON ([phone])[facility] (SBHLAB)[address] MCH (RBC) [Entitic mass] 31.3 pg Normal 26.0-34.0 [facility] Comment on above: Performed By: #### L [id number] ####Medical Records Specialist: HANS PAULSON ([phone])[facility] [place] (SB[facility])[address] MCHC 30.3 % Low 30.5-36.0 [facility] Comment on above: Performed By: #### L [id number] ####Medical Records Specialist: HANS PAULSON ([phone])[facility] [place] (SB[facility])[address] MCV (RBC) [Entitic vol] 103.4 fL High 77.0-99.0 [facility] Comment on above: Performed By: #### L [id number] ####Medical Records Specialist: HANS PAULSON ([phone])[facility] [place] ([facility])[address] Monocytes (Bld) [#/Vol] 0.5 10*3/uL Normal 0.0-0.9 [facility] Comment on above: Performed By: #### L [id number] ####Medical Records Specialist: HANS PAULSON ([phone])[facility] [place] ([facility])[address] Monocytes/100 WBC (Bld) 5.5 % Normal 5.0-13.0 [facility] Comment on above: Performed By: #### L [id number] ####Medical Records Specialist: HANS PAULSON ([phone])[facility] [place] ([facility])[address] NEUTROPHILS ABSOLUTE 7.2 10*3/uL Normal 1.8-7.5 [facility] Comment on above: Performed By: #### L [id number] ####Medical Records Specialist: HANS PAULSON ([phone])[facility] [place] (SB[facility]AB)[address] Neutrophils/100 WBC (Bld) 80.4 % Normal 38.0-82.0 [facility] Comment on above: Performed By: #### L [id number] ####Medical Records Specialist: HANS PAULSON ([id number])[facility] [place] ([facility])[address] NRBC 0.0 /100 WBCs Normal 0.0-2.0 [facility] Comment on above: Performed By: #### L [id number] ####Medical Records Specialist: HANS PAULSON ([phone])[facility] [place] ([facility])[address] Platelet mean volume (Bld) [Entitic vol] 9.5 fL Normal 9.0-12.7 [facility] Comment on above: Performed By: #### L [id number] ####Medical Records Specialist: HANS PAULSON ([phone])[facility] [place] ([facility])[address] [place] [address] [place] Platelets (Bld) [#/Vol] 225 10*3/uL Normal 140-440 [facility] Comment on above: Performed By: #### L [id number] ####Medical Records Specialist: HANS PAULSON ([phone])[facility] ([facility])[address] [place] [address] [place] RBC (Bld) [#/Vol] 3.58 10*6/uL Low 3.80-5.20 [facility] Comment on above: Performed By: #### L [id number] ####Medical Records Specialist: HANS PAULSON ([phone])[facility] [place] ([facility])[address] [place] [address] [place] WBC (Bld) [#/Vol] 8.9 10*3/uL Normal 3.6-10.7 [facility] Comment on above: Performed By: #### L [id number] ####Medical Records Specialist: HANS [phone])[facility] (SBHLAB)[address] [place] [address] Leigh 07-30-2024 CNOV Office Visit (FAMDNA ) GONZALO DELUCA ([id number]) 1955 F Date Time Provider Department 07/30/24 3:00 PM HERMINIA CASE During your visit today, we recorded the following information about you: Temperature Pulse Blood pressure Weight 98.4 degrees 106/minute 120/78 40.6 kg Height 1.641 m Herminia Case MD 07/30/2024 4:33 PM Signed 07/30/2024 Recording using OptuLink software for draft documentation of the visit was discussed with the patient/authorized sales representative printing supplies; all questions welcomed and answered. Patient/authorized sales representative printing supplies agreed to proceed HPI: Gonzalo is a [...] Psychiatric: ( (more content not included)... Normal [facility] COMPLETE URINALYSIS WITH REF FAMILIA TO CULTURE 07-30-2024 AMORPHOUS CRYSTALS (#/HPF) IN URINE Many Abnormal Negative [facility] Comment on above: Performed By: #### L [id number] ####Medical Records Specialist: HANS PAULSON ([id number])[facility] ([facility])[address] [place] [address] BACTERIA (#/HPF) IN URINE Negative Normal Negative [facility] Comment on above: Performed By: #### L [id number] ####Medical Records Specialist: HANS PAULSON ([phone])[facility] ([facility])[address] [place] [address] BILIRUBIN, TOTAL PRESENCE IN URINE Negative Normal Negative [facility] Comment on above: Performed By: #### L [id number] ####Medical Records Specialist: HANS PAULSON ([phone])[facility] (SB[facility])[address] Clarity (U) Turbid Abnormal Clear [facility] Comment on above: Performed By: #### L [id number] ####Medical Records Specialist: HANS PAULSON ([phone])[facility] ([facility])[address] Color (U) Yellow Normal Lt. Yellow [facility] Comment on above: Performed By: #### L [id number] ####Medical Records Specialist: HANS PAULSON ([id number])[facility] ([facility])[address] [place] [address] GLUCOSE (MG/DL) IN URINE Normal Normal Normal (<70 ) [facility] Comment on above: Performed By: #### L [id number] ####Medical Records Specialist: HANS PAULSON ([phone])[facility] ([facility])[address] [place] [address] HEMOGLOBIN PRESENCE IN URINE Negative Normal Negative [facility] Comment on above: Performed By: #### L [id number] ####Medical Records Specialist: HANS PAULSON ([phone])[facility] ([facility])[address] [place] [address] HYALINE CASTS (#/LPF) IN URINE SEDIMENT BY MICROSCOPY 0-2 Abnormal Negative [facility] Comment on above: Performed By: #### L [id number] ####Medical Records Specialist: HANS PAULSON ([phone])[facility] ([facility])[address] [place] [address] Ketones Ql (U) Negative Normal Negative [facility] Comment on above: Performed By: #### L [id number] ####Medical Records Specialist: HANS PAULSON ([phone])[facility] ([facility])[address] [place] [address] LEUKOCYTE ESTERASE PRESENCE IN URINE BY TEST STRIP 25 Sandra/uL Abnormal Negative [facility] Comment on above: Performed By: #### L [id number] ####Medical Records Specialist: HANS PAULSON ([phone])[facility] ([facility])[address] [place] [address] [place] MUCUS (#/LPF) IN URINE SEDIMENT Few Normal Negative [facility] Comment on above: Performed By: #### L [id number] ####Medical Records Specialist: HANS PAULSON ([phone])[facility] ([facility])[address] NITRITE PRESENCE IN URINE Negative Normal Negative [facility] Comment on above: Performed By: #### L [id number] ####Medical Records Specialist: HANS PAULSON ([id number])[facility] ([facility])[address] pH (U) 7.5 [pH] Normal 5.0-8.0 [facility] Comment on above: Performed By: #### L [id number] ####Medical Records Specialist: HANS PAULSON ([id number])[facility] ([facility])[address] Protein (U) [Mass/Vol] 10 mg/dL Abnormal Negative [facility] Comment on above: Performed By: #### L [id number] ####Medical Records Specialist: HANS PAULSON ([phone])[facility] ([facility])[address] RBC (#/HPF) IN URINE SEDIMENT 0-2 Normal 0-2 [facility] Comment on above: Performed By: #### L [id number] ####Medical Records Specialist: HANS PAULSON ([phone])[facility] ([facility])[address] Specific gravity (U) [Rel density] 1.023 Normal 1.005-1.030 [facility] Comment on above: Result Comment: KYM Gonzalez COMMENTS: A specimen with <=10 WBC is not consistent with inflammation. This specimen will not reflex to a urine culture. Performed By: #### L [id number] ####Medical Records Specialist: HANS [phone])[facility] (SB[facility])[address] SQUAMOUS EPITHELIAL CELLS (#/HPF) IN URINE SEDIMENT 0-2 Normal 3-5 [facility] Comment on above: Performed By: #### L [id number] ####Medical Records Specialist: HANS PAULSON ([id number])[facility] ([facility])[address] UROBILINOGEN (MG/DL) IN URINE Normal Normal Normal (0-1) [facility] Comment on above: Performed By: #### L [id number] ####Medical Records Specialist: HANS PAULSON ([id number])[facility] ([facility])[address] [place] [address] WBC (LEUKOCYTE) (#/HPF) IN URINE SEDIMENT 3-5 Normal 0-5 [facility] Comment on above: Performed By: #### L [id number] ####Medical Records Specialist: HANS ALCANTARESCOBAR ([phone])[facility] ([facility])[address] [place] [address] Cobalamin (Vitamin B12) [Mas s/Vol]on 07-30-2024 Interpretation and review of laboratory results Normal [facility] ECG 12-LEADon 07-30-2024 ECG 12-LEAD IMPRESSION: Sinus rhythm Left axis deviation Electronically Signed On 07-30-2024 21:23:27 EDT by Evelio Sterling Normal [facility] ED Provider Noteon ED Provider Note EMERGENCY [...] 04/12/2018 Allergic rhinitis Arthritis Asthma Bronchitis Cancer ([facility]/HCC) (HCC) skin Cervical cancer ([facility]) Chest pain COPD (chronic obstructive pulmonary disease) ([facility]) USE OXYGEN 3 L AT NIGHT DDD (degenerative disc disease), cervical Defect, retina, with detachment right DJD (degenerative joint disease), lumbar Emphysema lung (HCC) Former smoker Hematuria SCHEDULED FOR THE PROCEDURE /SURGERY ON 02/11/2017 Hypokalemia Lung nodules Near syncope 09/19/2023 Osteoporosis Palpitations Pneumonia Recurrent major depression ([facility]) Sciatica Thoracic compression fracture ([facility]) Vitamin D deficiency SURGICAL HISTORY Past Surgical [...] every morn (more content not included)... Normal [facility] FOLATEon 07-30-2024 FOLATE RESULT 5.2 ng/mL Low 7.0-31.4 [facility] Comment on above: Performed By: #### L [id number], [id number] #### Medical Records Specialist: AMELIE ELIZABETH ([phone]) [facility] ([facility]) [address] [place] [address] Folate [Mass/Vol]on 07-31-19 Interpretation and review of laboratory results Abnormal [facility] HEPATIC FUNCTION PANELon Albumin [Mass/Vol] 3.0 g/dL Low 3.4-4.8 [facility] Comment on above: Performed By: #### L [id number], [id number] #### Medical Records Specialist: AMELIE ELIZABETH ([id number]) [facility] ([facility]) [address] [place] [address] ALP [Catalytic activity/Vol] 97 U/L Normal 40-150 [facility] Comment on above: Performed By: #### L [id number], [id number] #### Medical Records Specialist: AMELIE ELIZABETH ([phone]) [facility] ([facility]) [address] [place] [address] [place] ALT [Catalytic activity/Vol] 10 U/L Normal <30 [facility] Comment on above: Performed By: #### L [id number], [id number] #### Medical Records Specialist: AMELIE ELIZABETH ([phone]) [facility] ([facility]) [address] [place] [address] [place] AST [Catalytic activity/Vol] 21 U/L Normal <34 [facility] Comment on above: Performed By: #### L [id number], [id number] #### Medical Records Specialist: AMELIE ELIZABETH ([id number]) [facility] ([facility]) [address] [place] [address] [place] Bilirubin [Mass/Vol] 0.2 mg/dL Normal <1.2 [facility] Comment on above: Performed By: #### L [id number], [id number] #### Medical Records Specialist: AMELIE ELIZABETH ([id number]) [facility] ([address] Bilirubin.indirect [Mass/Vol] 0.1 mg/dL Normal <0.5 [facility] Comment on above: Performed By: #### L [id number], [id number] #### Medical Records Specialist: AMELIE ELIZABETH ([phone]) [facility]) [address] [place] [address] Protein [Mass/Vol] 6.5 g/dL Normal 6.4-8.3 [facility] Comment on above: Result Comment: Seru m protein values are higher than plasma values. Samples from recumbent persons are lower by up to 0.5 g/dL as compared to ambulatory persons. After 60 years values are lower by up to 0.2 g/dL. Performed By: #### L [id number], [id number] #### Medical Records Specialist: AMELIE ELIZABETH ([phone]) [facility]) [address] [place] [address] Hepatic function 2000 panelo n 07-30-2024 Albumin [Mass/Vol] 3 g/dL Low 3.4 - 4.8 g/dL [facility] ALP [Catalytic activity/Vol] 97 U/L 40 - 150 U/L [facility] ALT [Catalytic activity/Vol] 10 U/L [facility] - [facility] U/L [facility] AST [Catalytic activity/Vol] 21 U/L [facility] - 34 U/L [facility] Bilirubin [Mass/Vol] 0.2 mg/dL [facility] - 1.2 mg/dL [facility] Bilirubin.conjugated [Mass/Vol] 0.1 mg/dL [facility] - 0.5 mg/dL [facility] Protein [Mass/Vol] 6.5 g/dL 6.4 - 8.3 g/dL [facility] Comment on above: Serum protein values are higher than plasma values. Samples from recumbent persons are lower by up to 0.5 g/dL as compared to ambulatory persons. After 60 years values are lower by up to 0.2 g/dL. LIPASEon 07-30-2024 Lipase [Catalytic activity/Vol] 18 U/L Normal <55 [facility] Comment on above: Performed By: #### L [id number], [id number] #### Medical Records Specialist: AMELIE ELIZABETH ([phone]) [facility] ([facility]) [address] [place] [address] Laboratory - Chemistry and C hemistry - challengeon 07-30-2024 Folate [Mass/Vol] 5.2 ng/mL Low 7.0 - 31.4 ng/mL [facility] Variable Cobalamin (Vitamin B12) [Mass/Vol] 639 pg/mL 213 - 816 pg/mL [facility] Lipase [Catalytic activity/Vol] 18 U/L NINF - 55 U/L [facility] Magnesium [Mass/Vol] 1.9 mg/dL 1.6 - 2 .6 mg/dL [facility] MAGNESIUMon 07-30-2024 Magnesium [Mass/Vol] 1.9 mg/dL Normal 1.6-2.6 [facility] Comment on above: Result Comment: KYM Gonzalez COMMENTS: Higher values can be expected in females during menses. Performed By: #### L AB900, [id number] #### Medical Records Specialist: AMELIE ELIZABETH ([phone]) [facility] ([facility]) [address] [place] [address] Magnesium [Mass/Vol]on 07-30 Higher values can be expected in females during menses. [facility] Variable No Panel InformationOrdered By: Evelio Sterling on 07-30-2024 P [place] 53 degrees [facility] Work Phone: ND Interval 137 ms [facility] Work Phone: QRS [place] -35 degrees [facility] Work Phone: QRSD Interval 99 ms [facility] Work Phone: QT Interval 350 ms [facility] Work Phone: QTC Interval 439 ms [facility] Work Phone: T Wave [place] 43 degrees [facility] Work Phone: [facility] Work Phone: No Panel Informationon 07-30 Sinus rhythm Left axis deviation Electronically Signed On 07-30-2024 21:23:27 EDT by Evelio ReyezDO - 07/30/2024 IMPRESSION: Sinus rhythm Left axis deviation Electronically Signed On 07-30-2024 21:23:27 EDT by Evelio Sterling [facility] Interpretation and review of laboratory results Abnormal [facility] Interpretation and review of laboratory results Normal [facility] Luis E Keating DO 07/30/2024 9:53 PM Splint Application Performed by: Luis E Keating DO Authorized by: Luis E Keating DO Consent: Consent obtained: Verbal Consent given by: Patient Risks, benefits, and alternatives were discussed: yes Risks discussed: Pain, numbness and swelling Alternatives discussed: Delayed treatment and referral [place] protocol: Patient identity confirmed: Verbally with patient [...] no immediate complications Post-procedure imaging: not applicable [facility] PROCALCITONIN TESTon 025 PROCALCITONIN 0.03 ng/mL Normal <0.07 [facility] Comment on above: Result Comment: KYM Gonzalez COMMENTS: PCT <0.50 = Low risk of severe sepsis and/or septic shock. PCT >2.00 = High risk of severe sepsis and/or septic shock. Performed By: #### L AB900, [id number] #### Medical Records Specialist: AMELIE ELIZABETH ([phone]) [facility] ([facility]) [address] [place] [address] [place] THYROID STIMULATING HORMONEo n 07-30-2024 THYROID STIMULATING HORMONE 0.28 uIU/mL Low 0.35-4.94 [facility] Comment on above: Performed By: #### L AB900, [id number] #### Medical Records Specialist: AMELIE ELIZABETH ([phone]) [facility] ([facility]) [address] [place] [address] Urinalysis complete panel (U )on 07-30-2024 Amorphous Crystals, Urine Many Abnormal Negative /HPF [facility] Bacteria LM.HPF (Urine sed) [#/Area] Negative Negative /HPF [facility] Bilirubin Ql (U) Negative Negative mg/dL [facility] Clarity (U) Turbid Abnormal Clear [facility] Color (U) Yellow Lt. Yellow [facility] Epithelial cells.squamous LM.HPF (Urine sed) [#/Area] 0-2 [facility] h Glucose Ql (U) Normal Normal (<70) mg/dL [facility] Hemoglobin Ql (U) Negative Negative mg/dL [facility] Hyaline casts Auto (Urine sed) [#/Area] 0-2 Abnormal Negative /LPF [facility] Interpretation and review of laboratory results Abnormal [facility] Ketones (U) [Mass/Vol] Negative Negat kenton mg/dL [facility] Leukocyte esterase Test strip Ql (U) 25 Abnormal Negative Sandra/uL [facility] Mucus LM.HPF (Urine sed) [#/Area] Few Negative /LPF [facility] Nitrite Ql (U) Negative Negative [facility] th pH (U) 7.5 [pH] 5.0 - 8.0 pH [facility] Protein (U) [Mass/Vol] 10 mg/dL Abnormal Negative [facility] RBC LM.HPF (Urine sed) [#/Area] 0-2 [facility] Specific gravity (U) [Rel density] 1.023 1.005 - 1.030 [facility] Urobilinogen (U) [Mass/Vol] Normal Normal (0-1) mg/dL [facility] WBC LM.HPF (Urine sed) [#/Area] 3-5 [facility] A specimen with <=10 WBC is not consistent with inflammation. This specimen will not reflex to a urine culture. [facility] VITAMIN B12on 07-30-2024 Cobalamin (Vitamin B12) [Mass/Vol] 639 pg/mL Normal 213-816 [facility] Comment on above: Performed By: #### L AB900, [id number] #### Medical Records Specialist: AMELIE ELIZABETH ([phone]) [facility] ([facility]) [address] [place] [address] Vital signsOrdered By: Evelio Sterling on 07-30-2024 Heart rate 95 /min bpm [facility] Work Phone: XR Chest Single viewon 07-30 No acute cardiopulmonary abnormality identified. Chronic appearing lung changes. Report Dictated on Electronically Signed By: Honorio Andino MD Electronically Signed Date/Time: 07/30/2024 5:42 PM EDT [facility] Patient Name: GONZALO DELUCA : 1955 [place] Hospital[id number] Exam Date/Time: 07/30/2024 17:32 Procedure: XR CHEST [...] demonstrated. Bones are osteopenic. Other findings: None. [facility] Honorio Andino MD - 07/30/2024 [...] Electronically Signed Date/Time: 07/30/2024 5:42 PM EDT [facility] Radiology Study observation (narrative) [facility] XR Elbow - left 2 Viewson Acute, obliquely oriented, slightly displaced and impacted fracture through the supracondylar region of the left elbow with associated soft tissue swelling. Report Dictated on Electronically Signed By: Honorio Andino MD Electronically Signed Date/Time: 07/30/2024 5:46 PM EDT [employer] Patient Name: GONZALO DELUCA : 1955 [place] [id number] Exam Date/Time: 07/30/2024 17:32 Procedure: XR ELBOW [...] bones are osteopenic. No radiopaque foreign body. [facility] Honorio Andino MD - 07/30/2024 Patient Name: GONZALO DELUCA : 1955 [place] [facility] [id number] Exam Date/Time: 07/30/2024 17:32 Procedure: XR ELBOW [...] Electronically Signed Date/Time: 07/30/2024 5:46 PM EDT [facility] Radiology Study observation (narrative) [facility]th XR Elbow - left 2 ViewsOrder ed By: Honorio Andino on 07-30-2024 [facility] Work Phone: Progress Noteon 07-24-2024 Progress Note Call placed to patient, no show for port flush appointment today. LVM to return call to get rescheduled. Normal [facility] 06-30-2024 [facility] Telephone (FAMDNA) GONZALO DELUCA ([id number]) 1955 F Date Time Provider Department 06/30/24 HERMINIA CASE During your visit today, we recorded the following information about you: Whit Shay LPN 06/30/2024 10:14 AM Signed Type of letter/form/fax request - Assisted living orders Form received from [facility] on 06/29/24 floor and placed on MD desk () for completion. Completed form needs to be faxed to [phone]. Route to [place] when form completed for processing Leona Castañeda APRN.CARD PLACER 07/02/2024 2:33 PM Signed Orders signed and in outbox. Please fax. Thank you, Leona Castañeda APRN.CARD PLACER hWit Shay LPN 07/02/2024 2:54 PM Signed Request completed and faxed. Allergies As of Date: 06/30/2024 Noted Allergy Reaction SEASONAL ALLERGIES 08/16/2017 5 - Intolerance Date Reviewed: 12/30/2023 Reviewed by: Joaquina Martinez APRN.CARD PLACER - Fully Assessed Reason for Visit: Orders [...] [Z99.81] 04/10/2017 Diagnosed: 03/11/2023 Encounter Status:Closed by WIHT SHAY on 07/02/24 [facility] 06-07-2024 CNPN Telephone (HCSIND) GONZALO DELUCA ([id number]) 1955 F Date Time Provider Department 06/07/24 [...] 06/10/2024 8:38 AM Signed Herminia Case MD, [facility] received a referral for [facility] services. We have made several attempts [...] Date Reviewed: 12/30/2023 Reviewed by: Joaquina Martinez APRN.CARD PLACER - Fully Assessed Reason for Visit: Home [...] hysterectomy [Z90.710] (more content not included)... Normal [facility] Telephone (HCSIND) GONZALO DELUCA ([id number]) 1955 F Date Time Provider Department 06/07/24 MADDI VALERO During your visit today, we recorded the following information about you: Allergies As of Date: 06/07/2024 Noted Allergy Reaction SEASONAL ALLERGIES 08/16/2017 5 - Intolerance Date Reviewed: 12/30/2023 Reviewed by: Joaquina Martinez APRN.CARD PLACER - Fully Assessed Reason for Visit: Home [...] Encounter Status:Closed by MADDI VALERO on 06/07/24 [facility] 06-06-2024 CNPN Telephone (HCSIND) RAUDELSUMEETGONZALO LEBLANC ([id number]) 1955 F Date Time Provider Department 06/06/24 HERMINIA CASE During your visit today, we recorded the following information about you: Erna Diaz LPN 06/06/2024 1:02 PM Signed Herminia Case MD Thank you for the referral for Gonzalo Raudelyahir to receive home care services through [facility]. At this time, the office note is [...] yet completed for us to review for [facility] guidelines. Please let us know once you have an opportunity to complete it so that we can review for CMS. Also, per [facility] guidelines your office note needs to include [...] Date Reviewed: 12/30/2023 Reviewed by: Joaquina Martinez APRN.CARD PLACER - Fully Assessed Reason for Visit: Home [...] access [I87.8] more content not included)... Normal [facility] 36on 06-05-2024 36 Pt called with christian padron to schedule appt with IMMIGRATION ATTORNEY. Made appt with pt being past due. Pt was supposed to be seen 05/14 for 6 month surveillance appt. Called Rambo weaver and scheduled port flush for 06/12/24 at 2:00 pm. Normal [facility] 36 Patient called to obtain an order for a port flush and/or removal. Patient not sure if she needs to make an appointment. Patient would like schedule in [place]. Verified contact number for patient is correct. Normal [facility] Basic metabolic 1998 panelon 04-28-2024 Anion gap [Moles/Vol] 8 mmol/L 3 - 13 mmol/L [facility] Calcium [Mass/Vol] 9.1 mg/dL 8.8 - 10. 0 mg/dL [facility] Chloride [Moles/Vol] 102 mmol/L 98 - 10 7 mmol/L [facility] CO2 [Moles/Vol] 33 mmol/L High 23 - 31 mmol/L [facility] Creatinine [Mass/Vol] 0.78 mg/dL 0.57 - 1.11 mg/dL [facility] GFR/1.73 sq M.predicted (S/P/Bld) [Vol rate/Area] 83.4 mL/min - PINF [facility] Comment on above: Calculation based on the Chronic Kidney Disease Epidemiology Collaboration (CKD-EPI) equation refit without adjustment for race Glucose [Mass/Vol] 179 mg/dL High 82 - 115 mg/dL [facility] Variable Interpretation and review of laboratory results Abnormal [facility] Variable Potassium [Moles/Vol] 3.6 mmol/L 3.5 - 5.1 mmol/L [facility] Comment on above: Plasma potassium martín ues may be up to 0.5 mmol/L lower than serum values. Sodium [Moles/Vol] 143 mmol/L 136 - 145 mmol/L [facility] Variable Urea nitrogen [Mass/Vol] 13 mg/dL 9 - 23 mg/d L [facility] Variable CBC W Auto Differential pane l (Bld)Ordered By: Hakeem Cruz on 04-28-2024 Basophils (Bld) [#/Vol] 0 10*3/uL 0.0 - 0.2 10*3/uL [facility] Variable Basophils/100 WBC (Bld) 0.6 % 0.0 - 2.0 % [facility] Variable Eosinophils (Bld) [#/Vol] 0.3 10*3/uL 0.0 - 0.5 10*3/uL [facility] Variable Eosinophils/100 WBC (Bld) 4 % 0.0 - 6.0 % [facility] Variable Erythrocyte distribution width (RBC) [Ratio] 13.2 % 11.5 - 15.0 % [facility] Variable Hematocrit (Bld) [Volume fraction] 37.3 % 35.0 - 47.0 % [facility] Variable Hemoglobin (Bld) [Mass/Vol] 11.5 g/dL Low 11.7 - 16.0 g/dL [facility] Variable Immature granulocytes (Bld) [#/Vol] 0 10*3/uL NINF - 0.1 10*3/uL [facility] Variable Immature granulocytes/100 WBC (Bld) 0.5 % 0.0 - 2.0 % [facility] Interpretation and review of laboratory results Abnormal [facility] Variable Lymphocytes (Bld) [#/Vol] 0.7 10*3/uL Low 1.0 - 4.3 10*3/uL [facility] Variable Lymphocytes/100 WBC (Bld) 10.6 % Low 15.0 - 45.0 % [facility] MCH (RBC) [Entitic mass] 30.9 pg 26. 0 - 34.0 pg [facility] Variable MCHC (RBC) [Mass/Vol] 30.8 % 30.5 - 36.0 % [facility] Variable MCV (RBC) [Entitic vol] 100.3 fL High 77.0 - 99.0 fL [facility] Variable Monocytes (Bld) [#/Vol] 0.4 10*3/uL 0.0 - 0.9 10*3/uL [facility] Variable Monocytes/100 WBC (Bld) 6.5 % 5.0 - 13.0 % [facility] Variable Neutrophils (Bld) [#/Vol] 5.1 10*3/uL 1.8 - 7.5 10*3/uL [facility] Variable Neutrophils/100 WBC (Bld) 77.8 % 38.0 - 82.0 % [facility] Variable Nucleated RBC/100 WBC (Bld) [Ratio] 0 % [employer] Variable Platelet mean volume (Bld) [Entitic vol] 10 fL 9.0 - 12.7 fL [facility] Variable Platelets (Bld) [#/Vol] 165 10*3/uL 140 - 440 10*3/uL [facility] Variable RBC (Bld) [#/Vol] 3.72 10*6/uL Low 3.80 - 5.2 0 10*6/uL [facility] Variable WBC (Bld) [#/Vol] 6.5 10*3/uL 3.6 - 10.7 10*3/uL [facility] CT CERVICAL SPINE WO IV CONT [facility] 04-28-2024 CT CERVICAL SPINE WO IV CONTRAST Patient Name: GONZALO DELUCA : 1955 [place] [id number] Exam Date/Time: 04/28/2024 00:12 Procedure: CT CERVICAL [...] Electronically Signed Date/Time: 04/28/2024 12:50 AM EST [facility] CT Cervical spine WO contras ton 04-28-2024 Patient Name: GONZALO DELUCA : 1955 Exam Date/Time: 04/28/2024 00:12 Procedure: CT CERVICAL SPINE WO IV CONTRAST Ordering Provider: ATLAMIRANO JEFFREY Reason For Exam: Neck trauma (Age [...] the paranasal sinuses shows no air-fluid levels. [facility] Ramses Gamble MD - 04/28/2024 [...] MD Electronically Signed Date/Time: 04/28/2024 12:50 AM [facility] Radiology Study observation (narrative[facility] WO IV CONTRASTon [...] elbow and nose pain secondary fall Normal [facility] CT Head WO contraston 2024 Patient Name: GONZALO DELUCA : 1955 [place] [facility] [id number] Exam Date/Time: 04/28/2024 00:12 Procedure: CT HEAD [...] the paranasal sinuses shows no air-fluid levels. [facility] Ramses Gamble MD - 04/28/2024 Patient Name: GONZALO DELUCA : 1955 [place] [id number] Exam Date/Time: 04/28/2024 00:12 Procedure: CT HEAD [...] Electronically Signed Date/Time: 04/28/2024 12:50 AM EST [facility] Radiology Study observation (narrative) Abe He alth ECG 12-LEADon 04-28-2024 ECG 12-LEAD IMPRESSION: Sinus rhythm with normal rate, intervals and QRS duration. No acute ischemic changes. Inferior Q waves, old Electronically Signed On 04-28-2024 14:40:42 EST by Freddy Wills [facility] Laboratory - Chemistry and C hemistry - challengeon 04-28-2024 Magnesium [Mass/Vol] 2 mg/dL 1.6 - 2 .6 mg/dL [facility] Magnesium [Mass/Vol]on 04-28 Interpretation and review of laboratory results Normal [facility] Higher values can be expected in females during menses. [facility] No Panel Informationon 04-28 Impression: No [...] MD Electronically Signed Date/Time: 04/28/2024 12:50 AM [facility] [employer] [facility] Interpretation and review of laboratory results Normal [facility] Troponin HS Serial Baseline 4 ng/L NINF - 14 ng/L [facility] Comment on above: In individuals prese nting with symptoms > 2h, a baseline troponin <= 5 ng/L suggests acute cardiac injury is unlikely and further serial testing is generally not indicated. [facility] XR Elbow - left 3 Viewson Findings and impression: Left elbow three views performed. Bone density is normal. No fracture or dislocation seen. Report Dictated on Electronically Signed By: Ramses Gamble MD Electronically Signed Date/Time: 04/28/2024 12:23 AM [employer] [facility] Patient Name: GONZALO DELUCA : 1955 Exam Date/Time: 04/28/2024 00:01 Procedure: XR ELBOW 3+ VIEWS LEFT Ordering Provider: ALTAMIRANO JEFFREY Reason For Exam: Elbow trauma Indication: Elbow trauma. [facility] Ramses Gamble MD - 04/28/2024 Patient Name: GONZALO DELUCA : 1955 [facility]#: [id number] Exam Date/Time: 04/28/2024 00:01 Procedure: XR ELBOW 3+ VIEWS LEFT Ordering Provider: ALTAMIRANO JEFFREY Reason For Exam: Elbow trauma Indication: Elbow trauma. IMPRESSION: Findings and impression: Left elbow three views performed. Bone density is normal. No fracture or dislocation seen. Report Dictated on Electronically Signed By: Ramses Gamble MD Electronically Signed Date/Time: 04/28/2024 12:23 AM EST [facility] Radiology Study observation (narrative) [facility] Maxi alth XR Elbow - left 3 ViewsOrder ed By: aRmses Gamble on 04-28-2024 [facility] Work Phone: BASIC METABOLIC PANELon Anion gap [Moles/Vol] 8 mmol/L Normal 3-13 [facility] Comment on above: Performed By: #### Arsenio AB103, LAB15, [id number] ####Medical Records Specialist: HANS PAULSON ([phone])[facility] ([facility])[address] [place] [address] Calcium [Mass/Vol] 9.1 mg/dL Normal 8.8-10.0 [facility] Comment on above: Performed By: #### Arsenio AB103, LAB15, [id number] ####Medical Records Specialist: HANS PAULSON ([phone])[facility] ([facility])[address] [place] [address] [place] Chloride [Moles/Vol] 102 mmol/L Normal 98-107 [facility] Comment on above: Performed By: #### Arsenio AB103, LAB15, [id number] ####Medical Records Specialist: HANS PAULSON ([phone])[facility] ([facility])[address] [place] [address] [place] CO2 [Moles/Vol] 33 mmol/L High 23-31 [facility] Comment on above: Performed By: #### Arsenio AB103, LAB15, [id number] ####Medical Records Specialist: HANS PAULSON ([phone])[facility] Creatinine [Mass/Vol] 0.78 mg/dL Normal 0.57-1.11 [facility] Comment on above: Performed By: #### L AB103, LAB15, [id number] ####Medical Records Specialist: HANS PAULSON ([phone])[facility] ([facility])[address] [place] [address] [place] GLOMERULAR FILTRATION RATE ML/MIN/1.73 SQ M.PREDICTED 83.4 mL/min/1.73m*2 Normal >60.0 [facility] Comment on above: Result Comment: Calc ulation based on the Chronic Kidney Disease Epidemiology Collaboration (CKD-EPI) equation refit without adjustment for race Performed By: #### Arsenio RAGLAND, LAB15, [id number] ####Medical Records Specialist: HANS PAULSON ([phone])[facility] ([facility])[address] [place] [address] Glucose [Mass/Vol] 179 mg/dL High 82-115 [facility] Comment on above: Performed By: #### Arsenio RAGLAND, LAB15, [id number] ####Medical Records Specialist: HANS PAULSON ([phone])[facility] Potassium [Moles/Vol] 3.6 mmol/L Normal 3.5-5.1 [facility] Comment on above: Result Comment: [facility] potassium values may be up to 0.5 mmol/L lower than serum values. Performed By: #### L AB103, LAB15, [id number] ####Medical Records Specialist: HANS PAULSON ([phone])[facility] ([facility])[address] [place] [address] [place] Sodium [Moles/Vol] 143 mmol/L Normal 136-145 [facility] Comment on above: Performed By: #### L AB103, LAB15, [id number] ####Medical Records Specialist: HANS PAULSON ([phone])[facility] [place] ([facility])[address] Urea nitrogen [Mass/Vol] 13 mg/dL Normal 9-23 [facility] Comment on above: Performed By: #### L AB103, LAB15, [id number] ####Medical Records Specialist: HANS PAULSON ([phone])[facility] ([facility])[address] CBC WITH AUTO DIFFERENTIALon 04-27-2024 Basophils (Bld) [#/Vol] 0.0 10*3/uL Normal 0.0-0.2 [facility] Comment on above: Performed By: #### L [id number] ####Medical Records Specialist: HANS PAULSON ([phone])[facility] [place] ([facility])[address] Basophils/100 WBC (Bld) 0.6 % Normal 0.0-2.0 [facility] Comment on above: Performed By: #### L [id number] ####Medical Records Specialist: HANS PAULSON ([phone])[facility] ([facility])[address] [place] [address] [place] Eosinophils (Bld) [#/Vol] 0.3 10*3/uL Normal 0.0-0.5 [facility] Comment on above: Performed By: #### L [id number] ####Medical Records Specialist: HANS PAULSON ([id number])[facility] [place] ([facility])[address] [place] [address] [place] Eosinophils/100 WBC (Bld) 4.0 % Normal 0.0-6.0 [facility] Comment on above: Performed By: #### L [id number] ####Medical Records Specialist: HANS PAULSON ([phone])[facility] [place] ([facility])[address] Erythrocyte distribution width (RBC) [Ratio] 13.2 % Normal 11.5-15.0 [facility] Comment on above: Performed By: #### L [id number] ####Medical Records Specialist: HANS PAULSON ([phone])[facility] [place] ([facility])[address] Hematocrit (Bld) [Volume fraction] 37.3 % Normal 35.0-47.0 [facility] Comment on above: Performed By: #### L [id number] ####Medical Records Specialist: HANS PAULSON ([phone])[facility] [place] [address] Hemoglobin (Bld) [Mass/Vol] 11.5 g/dL Low 11.7-16.0 [facility] Comment on above: Performed By: #### L [id number] ####Medical Records Specialist: HANS PAULSON ([id number])[facility] ([facility])[address] IMMATURE GRANS % 0.5 % Normal 0.0-2.0 [facility] Comment on above: Performed By: #### L [id number] ####Medical Records Specialist: HANS PAULSON ([phone])[facility] [place] [address] IMMATURE GRANS ABSOLUTE 0.0 10*3/uL Normal <0.1 [facility] Comment on above: Performed By: #### L [id number] ####Medical Records Specialist: HANS PAULSON ([phone])[facility] [place] ([facility])[address] Lymphocytes (Bld) [#/Vol] 0.7 10*3/uL Low 1.0-4.3 [facility] Comment on above: Performed By: #### L [id number] ####Medical Records Specialist: HNAS PAULSON ([id number])[facility] ([facility])[address] Lymphocytes/100 WBC (Bld) 10.6 % Low 15.0-45.0 [facility] Comment on above: Performed By: #### L [id number] ####Medical Records Specialist: HANS PAULSON ([phone])[facility] [place] ([facility])[address] MCH (RBC) [Entitic mass] 30.9 pg Normal 26.0-34.0 [facility] Comment on above: Performed By: #### L [id number] ####Medical Records Specialist: HANS PAULSON ([phone])[facility] ([facility])[address] MCHC 30.8 % Normal 30.5-36.0 [facility] Comment on above: Performed By: #### L [id number] ####Medical Records Specialist: HANS PAULSON ([id number])[facility] [place] ([facility])[address] MCV (RBC) [Entitic vol] 100.3 fL High 77.0-99.0 [facility] Comment on above: Performed By: #### L [id number] ####Medical Records Specialist: HANS PAULSON ([id number])[facility] [place] ([facility])[address] [place] [address] Monocytes (Bld) [#/Vol] 0.4 10*3/uL Normal 0.0-0.9 [facility] Comment on above: Performed By: #### L [id number] ####Medical Records Specialist: HANS PAULSON ([id number])[facility] [place] ([facility])[address] Monocytes/100 WBC (Bld) 6.5 % Normal 5.0-13.0 [facility] Comment on above: Performed By: #### L [id number] ####Medical Records Specialist: HANS PAULSON ([phone])[facility] [place] ([facility])[address] NEUTROPHILS ABSOLUTE 5.1 10*3/uL Normal 1.8-7.5 [facility] Comment on above: Performed By: #### L [id number] ####Medical Records Specialist: HANS PAULSON ([id number])[facility] [place] ([facility])[address] Neutrophils/100 WBC (Bld) 77.8 % Normal 38.0-82.0 [facility] Comment on above: Performed By: #### L [id number] ####Medical Records Specialist: HANS PAULSON ([phone])[facility] [place] ([facility])[address] NRBC 0.0 /100 WBCs Normal 0.0-2.0 [facility] Comment on above: Performed By: #### L [id number] ####Medical Records Specialist: HANS PAULSON ([id number])[facility] [place] ([facility])[address] Platelet mean volume (Bld) [Entitic vol] 10.0 fL Normal 9.0-12.7 [facility] Comment on above: Performed By: #### L [id number] ####Medical Records Specialist: HANS PAULSON ([id number])[facility] [place] ([facility])[address] Platelets (Bld) [#/Vol] 165 10*3/uL Normal 140-440 [facility] Comment on above: Performed By: #### L [id number] ####Medical Records Specialist: HANS PAULSON ([id number])[facility] [place] ([facility])[address] RBC (Bld) [#/Vol] 3.72 10*6/uL Low 3.80-5.20 [facility] Comment on above: Performed By: #### L [id number] ####Medical Records Specialist: HANS PAULSON ([id number])[facility] [place] ([facility])[address] WBC (Bld) [#/Vol] 6.5 10*3/uL Normal 3.6-10.7 [facility] Comment on above: Performed By: #### L [id number] ####Medical Records Specialist: HANS PAULSON ([phone])[facility] ([facility])[address] ED Nursing Noteon 04-27-2024 ED Nursing Note Per ems, fall on carpeted floor. _ LOC but pt states she was dizzy and weak prior to fall. C/o L elbow and nose pain 2ndary fall Normal [facility] ED Provider Noteon ED Provider Note Patient: [...] dictating provider for clarification.) Flako Altamirano MD [employer] [facility] CHIEF COMPLAINT Chief Complaint Patient presents [...] Acute exacerbation of chronic obstructive pulmonary disease ([facility]) 04/12/2018 Allergic rhinitis Arthritis Asthma Bronchitis Cancer ([facility]/HCC) ([facility]) skin Cervical cancer ([facility]) Chest pain COPD (chronic obstructive pulmonary disease) ([facility]) USE OXYGEN 3 L AT NIGHT DDD (degenerative disc disease), cervical Defect, retina, with detachment right DJD (degenerative joint disease), lumbar Emphysema lung ([facility]) Former smoker Hematuria SCHEDULED FOR THE PROCEDURE /SURGERY ON 02/11/2017 Hypokalemia Lung nodules Near syncope 09/19/2023 Osteoporosis Palpitations Pneumonia Recurrent major depression ([facility]) Sciatica Thoracic compression fracture ([facility]) Vitamin D deficiency SURGICAL HISTORY Past Surgical [...] GEL A (more content not included)... Normal [facility] HIGH SENSITIVITY TROPONIN, S ERIAL BASELINEon 04-27-2024 TROPONIN HS SERIAL BASELINE 4 ng/L Normal <=14 [facility] Comment on above: Result Comment: In i ndividuals presenting with symptoms > 2h, a baseline troponin <= 5 ng/L suggests acute cardiac injury is unlikely and further serial testing is generally not indicated. Performed By: #### L OBIE, LAB15, [id number] ####Medical Records Specialist: HANS PAULSON ([phone])[facility] ([facility])[address] [place] [address] MAGNESIUMon 04-27-2024 Magnesium [Mass/Vol] 2.0 mg/dL Normal 1.6-2.6 [facility] Comment on above: Result Comment: KYM R COMMENTS: Higher values can be expected in females during menses. Performed By: #### L OBIE, LAB15, [id number] ####Medical Records Specialist: HANS PALUSON ([phone])[facility] ([facility])[address] [place] [address] CNPLupe 03-01-2024 [facility] Telephone (FAMDNA) GONZALO DELUCA ([id number]) 1955 F Date Time Provider Department 03/01/24 [...] Date Reviewed: 12/30/2023 Reviewed by: Joaquina Martinez APRN.CARD PLACER - Fully Assessed Reason for Visit: Medication [...] Status:Closed by WHIT SHAY on 03/05/24 Normal [facility] Helen 12-27-2023 ANUEL [facility] GONZALO DELUCA ([id number]) 1955 F Date Time Provider Department 12/27/23 HERMINIA CASE During your visit today, we recorded the following information about you: Whit Shay LPN 12/27/2023 12:51 PM Signed Type of letter/form/fax request - Home Health Care Orders Form received from [facility] on 12/26/23 floor and placed on MD desk () for completion. Completed form needs to be faxed to [phone]. Route to [place] when form completed for processing Whit Shay [...] Encounter Status:Closed by WHIT SHAY on 12/27/23 [facility] [place] 12-13-2023 NADEEMN Telephone (FAMDNA) GONZALO DELUCA ([id number]) 1955 F Date Time Provider Department 12/13/23 HERMINIA CASE FAMDNA During your visit today, we recorded the following information about you: Whit Shay LPN 12/13/2023 11:03 AM Signed Type of letter/form/fax request - Home Health Care Orders Form received from [facility] on 12/12/23 floor and placed on MD desk () for completion. Completed form needs to be faxed to [phone]. Route to [place] when form completed for processing Herminia Case [...] Encounter Status:Closed by WHIT SHAY on 12/14/23 [facility] 12-06-2023 ANUEL Telephone (ANALIA) GONZALO DELUCA ([id number]) 1955 F Date Time Provider Department 12/06/23 HERMINIA CASE During your visit today, we recorded the following information about you: Whit Shay LPN 12/06/2023 1:40 PM Signed Type of letter/form/fax request - Home Health Care Orders Plan of Care Certification Period-11/25/23 to 01/23/24 [facility] floor and placed on MD desk () for completion. Completed form needs to be faxed to [phone]. Route to [place] when form completed for processing Herminia Case [...] Encounter Status:Closed by WHIT SHAY on 12[facility]06/23 [facility] GONZALO DELUCA ([id number]) 1955 F Date Time Provider Department 11/14/23 HERMINIA CASE During your visit today, we recorded the following information about you: Whit Shay LPN 11/14/2023 11:47 AM Signed Type of letter/form/fax request - Home Health Care Orders Form received from [facility] on 11/13/23 floor and placed on MD desk () for completion. Completed form needs to be faxed to . Route to [place] when form completed for processing Herminia Case MD 11/14/2023 12:51 PM Signed Done. Whit Shay LPN 11/14/2023 1:59 PM Signed Request completed and faxed. Allergies As of Date: 11/14/2023 Noted Allergy Reaction SEASONAL ALLERGIES 08/16/2017 5 - Intolerance Date Reviewed: 09/08/2023 Reviewed by: Tate Weathers MA - Fully Assessed Reason for Visit: Orders [171] Prescriptions as of 11/14/2023 - mirtazapine (REMERON) [...] Encounter Status:Closed by WHIT SHAY on 11/14/23 [facility] 10-28-2023 [facility]PAT[facility] GONZALO DELUCA ([id number]) 1955 F Date Time Provider Department 10/28/23 HERMINIA CASE During your visit today, we recorded the following information about you: Whit Shay LPN 10/28/2023 9:46 AM Signed Type of letter/form/fax request - Home Health Care Orders Form received from [facility] on 10/27/23 floor and placed on MD desk () for completion. Completed form needs to be faxed to [phone]. Route to [place] when form completed for processing Herminia Case [...] Encounter Status:Closed by WHIT SHAY on 10/28/23 [facility] CNPNon 10-22-2023 CNPN Telephone (4CQ) GONZALO DELUCA ([id number]) 1955 F Date Time Provider Department 10/22/23 HERMINIA CASE 4CQ During your visit today, we recorded the following information about you: Elsy Caro 10/22/2023 11:53 AM Signed [facility] called to report that patient [...] Encounter Status:Closed by MELVA JUÁREZ on 10/24/23 [facility] [place] 10-18-2023 NADEEMN Telephone [facility] GONZALO DELUCA ([id number]) 1955 F Date Time Provider Department 10/18/23 HERMINIA CASE During your visit today, we recorded the following information about you: Whit Shay LPN 10/18/2023 3:01 PM Signed Type of letter/form/fax request - Home Health Care Orders Form received from [facility] on 10/18/23 floor and placed on MD desk () for completion. Completed form needs to be faxed to [phone]. Route to [place] when form completed for processing Whit Shay [...] Status:Closed by WHIT SHAY on 10/18/23 Normal [facility] CT Chest WO contraston 10-15 1. [...] MD Electronically Signed Date/Time: 10/16/2023 9:11 PM [facility] 1955 [id number] Exam Date/Time: 10/16/2023 20:29 Procedure: CT CHEST [...] fracture deformities. No suspicious bulky axillary adenopathy. [facility] Roxie Kwon MD - 10/16/2023 Patient Name: [facility]ONZAL[facility]CA [facility] 1955 [id number] Exam Date/Time: 10/16/2023 20:29 Procedure: CT CHEST [...] Electronically Signed Date/Time: 10/16/2023 9:11 PM EDT [facility] Radiology [facility]narrative) [facility] WO contrastOrdered By: Roxie Kwon on 10-16-2023 [facility] Variable Work Phone: XR Hip - left 3 [...] Electronically Signed Date/Time: 10/16/2023 8:46 PM EDT [facility] Patient Name: GONZALO DELUCA : 1955 Exam Date/Time: 10/16/2023 20:40 Procedure: XR HIP 2 OR 3 VW LEFT Ordering Provider: HARTLEY SAMANTHA Reason For Exam: L hip pain after fall LEFT HIP: CLINICAL INDICATION: Status post fall with left hip pain TECHNIQUE: AP view the pelvis, two views of the left hip. COMPARISON: 09/19/2023 [facility] Roxie Kwon MD - 10/16/2023 [...] Electronically Signed Date/Time: 10/16/2023 8:46 PM EDT [facility] Radiology Study observation (narrative) Abe Cervantes 10-10-2023 CNPN Telephone (FAMDNA) GONZALO DELUCA ([id number]) 1955 F Date Time Provider Department 10/10/23 HERMINIA CASE During your visit today, we recorded the following information about you: Whit Shay LPN 10/10/2023 1:42 PM Signed Type of letter/form/fax request - Home Health Care Orders Form received from [facility] on 10/06/23 floor and placed on MD desk () for completion. Completed form needs to be faxed to [phone]. Route to [place] when form completed for processing Herminia Case [...] Encounter Status:Closed by WHIT SHAY on 10/11/23 [facility] [place] 10-06-2023 ANUEL Telephone ([facility]) GONZALO DELUCA ([id number]) 1955 F Date Time Provider Department 10/06/23 [...] @ Home Call patient at: at home [phone] (home) [phone] (cell) Was an appointment scheduled: No Closing [...] Status:Closed by JOAQUINA MARTINEZ on 10/06/23 Normal [facility] Basic metabolic 1998 panelon 09-22-2023 Anion gap [Moles/Vol] 10 mmol/L 3 - 13 mmol/L [facility] Calcium [Mass/Vol] 8.9 mg/dL 8.4 - 10. 4 mg/dL [facility] Chloride [Moles/Vol] 100 mmol/L 98 - 10 7 mmol/L [facility] CO2 [Moles/Vol] 30 mmol/L 22 - 30 mmol/L [facility] Creatinine [Mass/Vol] 0.39 mg/dL Low 0.52 - 1.04 mg/dL [facility] GFR/1.73 sq M.predicted MDRD (S/P/Bld) [Vol rate/Area] - PINF [facility] Comment on above: Calculation based on the Chronic Kidney Disease Epidemiology Collaboration (CKD-EPI) equation refit without adjustment for race Glucose [Mass/Vol] 109 mg/dL High 70 - 100 mg/dL [facility] Interpretation and review of laboratory results Abnormal [facility] Potassium [Moles/Vol] 4.2 mmol/L 3.5 - 5.1 mmol/L [facility] Sodium [Moles/Vol] 140 mmol/L 135 - 145 mmol/L [facility] Urea nitrogen [Mass/Vol] 11 mg/dL 7 - 17 mg/d L [facility] CBC W Auto Differential pane l (Bld)Ordered By: Rolando Shelton on 09-22-2023 Basophils (Bld) [#/Vol] 0.1 10*3/uL 0.0 - 0.2 10*3/uL [facility] Basophils/100 WBC (Bld) 0.5 % 0.0 - 2.0 % [facility] Eosinophils (Bld) [#/Vol] 0.1 10*3/uL 0.0 - 0.5 10*3/uL [facility] Eosinophils/100 WBC (Bld) 1.3 % 0.0 - 6.0 % [facility] Erythrocyte distribution width (RBC) [Ratio] 13.2 % 11.5 - 15.0 % [facility] Hematocrit (Bld) [Volume fraction] 37.5 % 35.0 - 47.0 % [facility] Hemoglobin (Bld) [Mass/Vol] 11.9 g/dL 11.7 - 16.0 g/dL [facility] Immature granulocytes (Bld) [#/Vol] 0.0 10*3/uL NINF - 0.1 10*3/uL [facility] Immature granulocytes/100 WBC (Bld) 0.3 % 0.0 - 2.0 % [facility] Interpretation and review of laboratory results Abnormal [facility] Lymphocytes (Bld) [#/Vol] 0.8 10*3/uL Low 1.0 - 4.3 10*3/uL [facility] Lymphocytes/100 WBC (Bld) 8.6 % Low 15.0 - 45.0 % [facility] MCH (RBC) [Entitic mass] 30.3 pg 26. 0 - 34.0 pg [facility] MCHC (RBC) [Mass/Vol] 31.7 % 30.5 - 36.0 % [facility] MCV (RBC) [Entitic vol] 95.4 fL 77.0 - 99.0 fL [facility] Monocytes (Bld) [#/Vol] 0.5 10*3/uL 0.0 - 0.9 10*3/uL [facility] Monocytes/100 WBC (Bld) 5.3 % 5.0 - 13.0 % [facility] Neutrophils (Bld) [#/Vol] 8.2 10*3/uL High 1.8 - 7.5 10*3/uL [facility] Neutrophils/100 WBC (Bld) 84.0 % High 38.0 - 82.0 % [facility] Nucleated RBC/100 WBC (Bld) [Ratio] 0.0 % [facility] Platelet mean volume (Bld) [Entitic vol] 9.2 fL 9.0 - 12.7 fL [facility] Platelets (Bld) [#/Vol] 289 10*3/uL 140 - 440 10*3/uL [facility] RBC (Bld) [#/Vol] 3.93 10*6/uL 3.80 - 5.2 0 10*6/uL [facility] WBC (Bld) [#/Vol] 9.8 10*3/uL 3.6 - 10.7 10*3/uL [facility] 25-hydroxyvitamin D3 [Mass/V ol]on 09-21-2023 Interpretation and review of laboratory results Normal [facility] Therapy is based on measurement of Total 25-OHD with the following classification levels: Less than 20 ng/mL: Indicative of Vit D deficiency 20-30 ng/mL: Suggests Vit D insufficiency Optimal: Greater than or equal to 30 ng/mL Test performed by [employer] Competitive Immunoassay, measuring Total Vitamin D, not individual fractions. [facility] Basic metabolic 1998 panelon 09-21-2023 Anion gap [Moles/Vol] 2 mmol/L Low 3 - 13 mmol/L [facility] Calcium [Mass/Vol] 9.1 mg/dL 8.4 - 10. 4 mg/dL [facility] Chloride [Moles/Vol] 102 mmol/L 98 - 10 7 mmol/L [facility] CO2 [Moles/Vol] 35 mmol/L High 22 - 30 mmol/L [facility] Creatinine [Mass/Vol] 0.49 mg/dL Low 0.52 - 1.04 mg/dL [facility] GFR/1.73 sq M.predicted MDRD (S/P/Bld) [Vol rate/Area] - PINF [facility] Comment on above: Calculation based on the Chronic Kidney Disease Epidemiology Collaboration (CKD-EPI) equation refit without adjustment for race Glucose [Mass/Vol] 97 mg/dL 70 - 100 mg/dL [facility] Variable Potassium [Moles/Vol] 3.1 mmol/L Low 3.5 - 5.1 mmol/L [facility] Sodium [Moles/Vol] 139 mmol/L 135 - 145 mmol/L [facility] Urea nitrogen [Mass/Vol] 18 mg/dL High 7 - 17 mg/d L [facility] Variable CBC W Auto Differential pane l (Bld)Ordered By: Crystal Dupont on 09-21-2023 Basophils (Bld) [#/Vol] 0.1 10*3/uL 0.0 - 0.2 10*3/uL [facility] Variable Basophils/100 WBC (Bld) 0.5 % 0.0 - 2.0 % [facility] Eosinophils (Bld) [#/Vol] 0.8 10*3/uL High 0.0 - 0.5 10*3/uL [facility] Eosinophils/100 WBC (Bld) 8.2 % High 0.0 - 6.0 % [facility] Erythrocyte distribution width (RBC) [Ratio] 13.2 % 11.5 - 15.0 % [facility] Hematocrit (Bld) [Volume fraction] 33.9 % Low 35.0 - 47.0 % [facility] Hemoglobin (Bld) [Mass/Vol] 10.6 g/dL Low 11.7 - 16.0 g/dL [facility] Immature granulocytes (Bld) [#/Vol] 0.0 10*3/uL NINF - 0.1 10*3/uL [facility] Immature granulocytes/100 WBC (Bld) 0.2 % 0.0 - 2.0 % [facility] Interpretation and review of laboratory results Abnormal [facility] Variable Lymphocytes (Bld) [#/Vol] 0.8 10*3/uL Low 1.0 - 4.3 10*3/uL [facility] Lymphocytes/100 WBC (Bld) 8.7 % Low 15.0 - 45.0 % [facility] Variable MCH (RBC) [Entitic mass] 30.2 pg 26. 0 - 34.0 pg [facility] MCHC (RBC) [Mass/Vol] 31.3 % 30.5 - 36.0 % [facility] Health MCV (RBC) [Entitic vol] 96.6 fL 77.0 - 99.0 fL [facility] Monocytes (Bld) [#/Vol] 0.7 10*3/uL 0.0 - 0.9 10*3/uL [facility] Monocytes/100 WBC (Bld) 7.1 % 5.0 - 13.0 % [facility] Neutrophils (Bld) [#/Vol] 7.0 10*3/uL 1.8 - 7.5 10*3/uL [facility] Neutrophils/100 WBC (Bld) 75.3 % 38.0 - 82.0 % [facility] Nucleated RBC/100 WBC (Bld) [Ratio] 0.0 % [facility] Platelet mean volume (Bld) [Entitic vol] 9.5 fL 9.0 - 12.7 fL [facility] Platelets (Bld) [#/Vol] 217 10*3/uL 140 - 440 10*3/uL [facility] RBC (Bld) [#/Vol] 3.51 10*6/uL Low 3.80 - 5.2 0 10*6/uL [facility] WBC (Bld) [#/Vol] 9.4 10*3/uL 3.6 - 10.7 10*3/uL [facility] Health [facility] CNPLupe 09-21-2023 CNPN Telephone (PATDNA) GONZALO DELUCA ([id number]) 1955 F Date Time Provider Department 09/21/23 HERMINIA CASE During your visit today, we recorded the following information about you: Ana Maria Acosta, RN 09/21/2023 2:55 PM Signed Ashley from [facility] Patient currently admitted for falls Need orders to follow for Home Care Call back number: [phone] Melva Juárez, PAKimC 09/21/2023 4:01 PM Signed Orders or will Dr. Case follow? She will follow. We don't typically give home care orders. RODRÍGUEZ Kruse Kristina RN 09/21/2023 4:54 PM Signed Called and spoke with Vivian riley [place] They just need to confirm Dr. Case [...] by ANA MARIA ACOSTA on 09/21/23 Normal [facility] Cobalamin (Vitamin B12) [Mas s/Vol]on 09-21-2023 Interpretation and review of laboratory results Normal [facility] Variable [facility] Variable Laboratory - Chemistry and C hemistry - challengeon 09-21-2023 Cobalamin (Vitamin B12) [Mass/Vol] 735 pg/mL 239 - 931 pg/mL [facility] TSH Qn 1.017 m[IU]/L [facility] 25-hydroxyvitamin D3 [Mass/Vol] 30 ng/mL 30 - 100 ng/mL [facility] Magnesium [Mass/Vol] 1.5 mg/dL Low 1.6 - 2 .3 mg/dL [facility] No Panel InformationOrdered By: Raul Cao on 09-21-2023 P [place] 46 degrees [employer] Work Phone: ND Interval 142 ms [employer] Work Phone: QRS [place] -35 degrees [employer] Work Phone: QRSD Interval 102 ms [facility] Work Phone: QT Interval 382 ms [employer] Work Phone: QTC Interval 446 ms [employer] Work Phone: T Wave [place] 147 degrees [employer] Work Phone: [employer] Work Phone: No Panel Informationon 09-20 Sinus [...] On 09-21-2023 09:19:23 EDT by Raul Cao [facility] Interpretation and review of laboratory results Abnormal [facility] Variable TSH Qnon 09-21-2023 Interpretation and review of laboratory results Normal [facility] [employer] Variable Vital signsOrdered By: Bernadette Cao on 09-21-2023 Heart rate 82 /min bpm [facility] Phone: Basic metabolic 1998 panelon 09-20-2023 Anion gap [Moles/Vol] 5 mmol/L 3 - 13 mmol/L [facility] Calcium [Mass/Vol] 8.5 mg/dL 8.4 - 10. 4 mg/dL [facility] Chloride [Moles/Vol] 99 mmol/L 98 - 10 7 mmol/L [facility] CO2 [Moles/Vol] 33 mmol/L High 22 - 30 mmol/L [facility] Creatinine [Mass/Vol] 0.73 mg/dL 0.52 - 1.04 mg/dL [facility] GFR/1.73 sq M.predicted MDRD (S/P/Bld) [Vol rate/Area] - PINF [facility] Comment on above: Calculation based on the Chronic Kidney Disease Epidemiology Collaboration (CKD-EPI) equation refit without adjustment for race Glucose [Mass/Vol] 94 mg/dL 70 - 100 mg/dL [facility] Interpretation and review of laboratory results Abnormal [facility] Potassium [Moles/Vol] 3.1 mmol/L Low 3.5 - 5.1 mmol/L [facility] Sodium [Moles/Vol] 137 mmol/L 135 - 145 mmol/L [facility] Urea nitrogen [Mass/Vol] 28 mg/dL High 7 - 17 mg/d L [facility] CBC W Auto Differential pane l (Bld)on 09-20-2023 Basophils (Bld) [#/Vol] 0.1 10*3/uL 0.0 - 0.2 10*3/uL [facility] Basophils/100 WBC (Bld) 0.5 % 0.0 - 2.0 % [facility] Eosinophils (Bld) [#/Vol] 0.8 10*3/uL High 0.0 - 0.5 10*3/uL [facility] Eosinophils/100 WBC (Bld) 7.0 % High 0.0 - 6.0 % [facility] Erythrocyte distribution width (RBC) [Ratio] 12.9 % 11.5 - 15.0 % [facility] Hematocrit (Bld) [Volume fraction] 34.8 % Low 35.0 - 47.0 % [facility] Hemoglobin (Bld) [Mass/Vol] 11.0 g/dL Low 11.7 - 16.0 g/dL [facility] Immature granulocytes (Bld) [#/Vol] 0.0 10*3/uL NINF - 0.1 10*3/uL [facility] Immature granulocytes/100 WBC (Bld) 0.4 % 0.0 - 2.0 % [facility] Interpretation and review of laboratory results Abnormal [facility] Lymphocytes (Bld) [#/Vol] 1.3 10*3/uL 1.0 - 4.3 10*3/uL [facility] Lymphocytes/100 WBC (Bld) 11.5 % Low 15.0 - 45.0 % [facility] MCH (RBC) [Entitic mass] 30.2 pg 26. 0 - 34.0 pg [facility] MCHC (RBC) [Mass/Vol] 31.6 % 30.5 - 36.0 % [facility] MCV (RBC) [Entitic vol] 95.6 fL 77.0 - 99.0 fL [facility] Monocytes (Bld) [#/Vol] 0.7 10*3/uL 0.0 - 0.9 10*3/uL [facility] Monocytes/100 WBC (Bld) 6.0 % 5.0 - 13.0 % [facility] Neutrophils (Bld) [#/Vol] 8.2 10*3/uL High 1.8 - 7.5 10*3/uL [facility] Neutrophils/100 WBC (Bld) 74.6 % 38.0 - 82.0 % [facility] Nucleated RBC/100 WBC (Bld) [Ratio] 0.0 % [facility] Platelet mean volume (Bld) [Entitic vol] 9.4 fL 9.0 - 12.7 fL [facility] Platelets (Bld) [#/Vol] 243 10*3/uL 140 - 440 10*3/uL [facility] RBC (Bld) [#/Vol] 3.64 10*6/uL Low 3.80 - 5.2 0 10*6/uL [facility] WBC (Bld) [#/Vol] 10.9 10*3/uL High 3.6 - 10.7 10*3/uL [facility] Laboratory - Chemistry and C hemistry - challengeon 09-20-2023 Magnesium [Mass/Vol] 2.3 mg/dL 1.6 - 2 .3 mg/dL [facility] Troponin I.cardiac [Mass/Vol] 0.022 ng/mL NINF - 0.034 ng/mL [facility] Magnesium [Mass/Vol] 2.7 mg/dL High 1.6 - 2 .3 mg/dL [facility] Magnesium [Mass/Vol]on 09-19 Interpretation and review of laboratory results Normal [facility] Interpretation and review of laboratory results Abnormal [facility] Troponin I.cardiac [Mass/Vol ]on 09-20-2023 Interpretation and review of laboratory results Normal [facility] Patients with high levels of Biotin oral intake (ie >5 mg/day) may have falsely decreased Troponin levels. [facility] US Heart TransthoracicOrdere d By: Srini Vital on 09-20-2023 Ao Root Index 2.56 cm/m2 [facility] Work Phone: Aortic Root 4.0 cm [facility] Work Phone: Aortic Sinus Valsalva 4.0 cm [facility] Work Phone: Aortic Sinus Valsalva Index 2.56 cm/m2 [facility] [employer] Phone: E/E' Lateral 4.67 [facility] [employer] Phone: [phone] E/E' Ratio (Averaged) 5.13 [facility] [employer] Phone: E/E' Septal 5.60 [facility] [employer] Phone: EF BP 65 % 55 - 100 % [facility] [employer] Phone: [phone] Fractional Shortening 2D 27 % 28 - 44 % [facility] [employer] Phone: Global Longitudinal Strain -18.1 % [facility] [employer] Phone: Interpretation and review of laboratory results Abnormal [facility] [employer] Phone: [phone] IVC Diameter 1.8 cm [facility] [employer] Phone: IVSd 1.0 cm Abnormal 0.6 - 0.9 cm [facility] [employer] Phone: [phone] LA Diameter 2.8 cm [facility] [employer] Phone: LA Size Index 1.79 cm/m2 [facility] [employer] Phone: LA Volume 2C 36 mL 22 - 52 mL [facility] [employer] Phone: LA Volume 4C 31 mL 22 - 52 mL [facility] [employer] Phone: LA Volume A/L 42 mL [facility] [employer] Work Phone: LA Volume BP 39 mL 22 - 52 mL [facility] [employer] Phone: LA Volume Index 2C 23 mL/m2 16 - 34 mL/m2 [facility] [facility] [employer] Phone: LA Volume Index 4C 20 mL/m2 16 - 34 mL/m2 [facility] [employer] Phone: LA Volume Index A/L 27 mL/m2 16 - 34 mL/m2 [facility] [employer] Phone: LA Volume Index BP 25 ml/m2 16 - 34 ml/m2 [facility] [employer] Phone: LA/AO Root Ratio 0.70 [facility] Work Phone: LV E' Lateral Velocity 12 cm/s [facility] Work Phone: LV E' Septal Velocity 10 cm/s [facility] Work Phone: LV EDV A2C 56 mL [facility] Work Phone: LV EDV A4C 60 mL [facility] Work Phone: LV EDV BP 60 mL 56 - 104 mL [facility] Work Phone: LV EDV Index A2C 36 mL/m2 [facility] Work Phone: LV EDV Index A4C 38 mL/m2 [facility] Work Phone: LV EDV Index BP 38 mL/m2 [facility] Work Phone: LV Ejection Fraction A2C 60 % [facility] Work Phone: LV Ejection Fraction A4C 70 % [facility] Work Phone: LV ESV A2C 22 mL [facility] Work Phone: LV ESV A4C 18 mL [facility] Work Phone: LV ESV BP 21 mL 19 - 49 mL [facility] Work Phone: LV ESV Index A2C 14 mL/m2 [facility] Work Phone: LV ESV Index A4C 12 mL/m2 [facility] Work Phone: LV ESV Index BP 13 mL/m2 [facility] Work Phone: LV Mass 2D 158.2 g 67 - 162 g [facility] Work Phone: LV Mass 2D Index 101.4 g/m2 Abnormal 43 - 95 g/m2 [facility] Work Phone: LV RWT Ratio 0.50 [facility] Work Phone: LVIDd 4.4 cm 3.9 - 5.3 cm [facility] Work Phone: LVIDd Index 2.82 cm/m2 [facility] Work Phone: LVIDs 3.2 cm [facility] Work Phone: LVIDs Index 2.05 cm/m2 [facility] Variable Work Phone: LVOT Area 4.2 cm2 [facility] Work Phone: LVOT Cardiac Output 6.5 liter/minute [facility] Work Phone: LVOT Diameter 2.3 cm [facility] [employer] Work Phone: LVOT Mean Gradient 2 mmHg [facility] Variable Work Phone: LVOT Peak Gradient 3 mmHg [facility] Variable Work Phone: [phone] LVOT Peak Velocity 0.9 m/s [facility] Work Phone: [phone] LVOT Stroke Volume Index 50.3 mL/m2 [facility] Work Phone: [phone] LVOT SV 78.5 ml [facility] Work Phone: [phone] LVOT VTI 18.9 cm [facility] Work Phone: LVPWd 1.1 cm Abnormal 0.6 - 0.9 cm [facility] Variable Work Phone: [phone] MV A Velocity 0.55 m/s [facility] Work Phone: [phone] MV E Velocity 0.56 m/s [facility] Work Phone: MV E Wave Deceleration Time 192.4 ms [facility] Work Phone: MV E/A 1.02 [facility] Work Phone: RA Area 4C 28.3 mL [facility] Work Phone: RV Basal Dimension 2.7 cm [facility] Work Phone: RV Free Wall Peak S' 15 cm/s [facility] Work Phone: RV Longitudinal Dimension 5.0 cm [facility] Work Phone: RV Mid Dimension 2.4 cm [facility] Work Phone: Sinotubular Junction 3.4 cm [facility] Work Phone: TAPSE 1.9 cm 1.7 cm [facility] Work Phone: TR Max Velocity 2.90 m/s [facility] Fuentes [facility] Work Phone: TR Peak Gradient 34 mmHg [facility] Work Phone: [facility] Work Phone: Heart Transthoracicon Left Ventricle: [...] [#/Vol] 0.0 10*3/uL 0.0 - 0.2 10*3/uL [employer] Variable Basophils/100 WBC (Bld) 0.2 % 0.0 - 2.0 % [facility] Variable Eosinophils (Bld) [#/Vol] 0.3 10*3/uL 0.0 - 0.5 10*3/uL [facility] Variable Eosinophils/100 WBC (Bld) 1.5 % 0.0 - 6.0 % [facility] Variable Erythrocyte distribution width (RBC) [Ratio] 13.0 % 11.5 - 15.0 % [facility] Variable Hematocrit (Bld) [Volume fraction] 39.6 % 35.0 - 47.0 % [facility] Variable Hemoglobin (Bld) [Mass/Vol] 12.7 g/dL 11.7 - 16.0 g/dL [facility] Variable Immature granulocytes (Bld) [#/Vol] 0.1 10*3/uL High NINF - 0.1 10*3/uL [facility] Variable Immature granulocytes/100 WBC (Bld) 0.6 % 0.0 - 2.0 % [facility] Variable Interpretation and review of laboratory results Abnormal [facility] Variable Lymphocytes (Bld) [#/Vol] 1.3 10*3/uL 1.0 - 4.3 10*3/uL [facility] Variable Lymphocytes/100 WBC (Bld) 6.5 % Low 15.0 - 45.0 % [facility] Variable MCH (RBC) [Entitic mass] 30.4 pg 26. 0 - 34.0 pg [facility] Variable MCHC (RBC) [Mass/Vol] 32.1 % 30.5 - 36.0 % [facility] Variable MCV (RBC) [Entitic vol] 94.7 fL 77.0 - 99.0 fL [facility] Variable Monocytes (Bld) [#/Vol] 1.0 10*3/uL High 0.0 - 0.9 10*3/uL [facility] Variable Monocytes/100 WBC (Bld) 5.1 % 5.0 - 13.0 % [facility] Variable Neutrophils (Bld) [#/Vol] 16.8 10*3/uL High 1.8 - 7.5 10*3/uL [facility] Health Neutrophils/100 WBC (Bld) 86.1 % High 38.0 - 82.0 % [facility] Health Nucleated RBC/100 WBC (Bld) [Ratio] 0.0 % [facility] Health Platelet mean volume (Bld) [Entitic vol] 9.3 fL 9.0 - 12.7 fL [facility] Health Platelets (Bld) [#/Vol] 339 10*3/uL 140 - 440 10*3/uL [facility] RBC (Bld) [#/Vol] 4.18 10*6/uL 3.80 - 5.2 0 10*6/uL [facility] WBC (Bld) [#/Vol] 19.5 10*3/uL High 3.6 - 10.7 10*3/uL [facility] CT Cervical spine WO contras ton 09-19-2023 [facility] 1955 [id number] Exam Date/Time: 09/19/2023 17:44 Procedure: CT CERVICAL [...] or atelectasis of the upper lungs noted. [facility] Clark Duffy MD - 09/19/2023 Patient Name: GONZALO DELUCA : 1955 [facility]#: [id number] Exam Date/Time: 09/19/2023 17:44 Procedure: CT CERVICAL [...] Electronically Signed Date/Time: 09/19/2023 6:01 PM EDT [facility] CT Head WO contraston 2023 No intracranial traumatic injuries. Report Dictated on Electronically Signed By: Brando Tejada MD Electronically Signed Date/Time: 09/19/2023 5:55 PM EDT [facility] [employer] [facility] Patient Name: GONZALO DELUCA : 1955 [...] banding. Clear paranasal sinuses. No calvarial fractures. [facility] Brando Tejada M D - [...] Electronically Signed Date/Time: 09/19/2023 5:[address] ED[address] [employer] [facility] Head WO contrastOrdered B y: Brando Tejada on 09-19-2023 [employer] Work Phone: CT Thoracic spine WO contras [...] or atelectasis of the upper lungs noted. [facility] Clark Duffy MD - 09/19/2023 [...] Electronically Signed Date/Time: 09/19/2023 6:01 PM EDT [facility] Radiology Study observation (narrative) [facility] Comprehensive metabolic 1998 panelOrdered By: Mara Hale on 09-19-2023 Albumin [Mass/Vol] 3.9 g/dL 3.5 - 5.0 g/dL [facility] ALP [Catalytic activity/Vol] 115 U/L 38 - 126 U/L [facility] ALT [Catalytic activity/Vol] 38 U/L High 0 - 34 U/L [facility] Anion gap [Moles/Vol] 13 mmol/L 3 - 13 mmol/L [facility] AST [Catalytic activity/Vol] 35 U/L 15 - 46 U/L [facility] Bilirubin [Mass/Vol] 0.5 mg/dL 0.2 - 1 .3 mg/dL [facility] Calcium [Mass/Vol] 9.0 mg/dL 8.4 - 10. 4 mg/dL [facility] Chloride [Moles/Vol] 93 mmol/L Low 98 - 10 7 mmol/L [facility] CO2 [Moles/Vol] 35 mmol/L High 22 - 30 mmol/L [facility] Creatinine [Mass/Vol] 1.33 mg/dL High 0.52 - 1.04 mg/dL [facility] GFR/1.73 sq M.predicted MDRD (S/P/Bld) [Vol rate/Area] 44.2 mL/min/{1.73_m2} Low - PINF [facility] Comment on above: Calculation based on the Chronic Kidney Disease Epidemiology Collaboration (CKD-EPI) equation refit without adjustment for race Glucose [Mass/Vol] 99 mg/dL 70 - 100 mg/dL [facility] Interpretation and review of laboratory results Abnormal [facility] Potassium [Moles/Vol] 2.3 mmol/L Critically low 3.5 - 5.1 mmol/L [facility] Protein [Mass/Vol] 7.1 g/dL 6.3 - 8.2 g/dL [facility] Sodium [Moles/Vol] 140 mmol/L 135 - 145 mmol/L [facility] Urea nitrogen [Mass/Vol] 36 mg/dL High 7 - 17 mg/d L [facility] Laboratory - Chemistry and C hemistry - challengeon 09-19-2023 Troponin I.cardiac [Mass/Vol] 0.031 ng/mL [facility] - 0.034 ng/mL [facility] Troponin I.cardiac [Mass/Vol] 0.025 ng/mL [facility] 0.[facility] ng/mL [facility] Laboratory - Chemistry and C hemistry - challengeOrdered By: Rosa Elena Puente on 09-19-2023 Base excess Calc (BldV) [Moles/Vol] 4.1 mmol/L High -3.0 - 3.0 mmol/L [facility] CO2 (BldV) [Partial pressure] 49.6 mm[Hg] [facility] CO2 [Moles/Vol] 31.4 mmol/L High 23.0 - 30.0 mmol/L [facility] HCO3 (Bld) [Moles/Vol] 29.9 mmol/L 21.0 - 30.0 mmol/L [facility] Oxygen (BldV) [Partial pressure] 50.1 mm[Hg] mm Hg [facility] pH (BldV) 7.398 [pH] 7.320 - 7.420 [facility] Laboratory - Hematology and Cell countsOrdered By: Rosa Elena Puente on 09-19-2023 Hemoglobin (Bld) [Mass/Vol] 13.4 g/dL Screen only [facility] No Panel InformationOrdered By: Rosa Elena Puente on 09-19-2023 Interpretation and review of laboratory results Abnormal [facility] Source Of Oxygen Nasal cannula [facility] Assessment of oxygenation is best done with an arterial blood gas determination. Reference ranges for pO2, bicarbonate, and base excess are for mixed venous blood. Specimens drawn from a peripheral vein will often have higher values. [facility] No Panel Informationon 09-18 P [place] 25 degrees [facility] ND Interval 140 ms [facility] QRS [place] -48 degrees [facility] QRSD Interval 103 ms [facility] QT Interval 468 ms [facility] QTC Interval 594 ms [facility] T Wave [place] 0 degrees [facility] Sinus rhythm Inferior infarct, old Prolonged QT interval No significant changes compared to previous Electronically Signed On 09-19-2023 18:04:00 EDT by Jono Robertson MD - 09/19/2023 IMPRESSION: Sinus rhythm Inferior infarct, old Prolonged QT interval No significant changes compared to previous Electronically Signed On 09-19-2023 18:04:00 EDT by Jono Weathers [facility] Impression: No acute osseous abnormality. Nonspecific sclerotic [...] Electronically Signed Date/Time: 09/19/2023 6:01 PM EDT [facility] Radiographic feature s suggestive of COPD. [...] Electronically Signed Date/Time: 09/19/2023 5:26 PM EDT [facility] Radiology Study observation (narrative) [facility] alth No Panel InformationOrdered By: Clark Duffy on 09-19-2023 [facility] Work Phone: Troponin I.cardiac [Mass/Vol ]on 09-19-2023 Interpretation and review of laboratory results Normal [facility] Patients with high levels of Biotin oral intake (ie >5 mg/day) may have falsely decreased Troponin levels. [facility] Interpretation and review of laboratory results Normal [facility] Patients with high levels of Biotin oral intake (ie >5 mg/day) may have falsely decreased Troponin levels. [facility] Urinalysis complete panel (U )Ordered By: Chrissy Alexandra on 09-19-2023 Bacteria LM.HPF (Urine sed) [#/Area] Negative Negative /HPF [facility] Bilirubin Ql (U) Negative Negative mg/dL [facility] Clarity (U) Clear Clear [facility] Color (U) Yellow Lt. Yellow [facility] Epithelial cells.squamous LM.HPF (Urine sed) [#/Area] 0-2 [facility] Glucose Ql (U) Normal Normal (<70) mg/dL [facility] Hemoglobin Ql (U) Negative Negative mg/dL [facility] Hyaline casts Auto (Urine sed) [#/Area] 3-5 Abnormal Negative /LPF [facility] Interpretation and review of laboratory results Abnormal [facility] Ketones (U) [Mass/Vol] Negative Negat kenton mg/dL [facility] Leukocyte esterase Test strip Ql (U) Negative Negative Sandra/uL [facility] Mucus LM.HPF (Urine sed) [#/Area] Few Negative /LPF [facility] Nitrite Ql (U) Negative Negative [facility] th Non-Squamous Epithalial Cells, Urine 0-2 Abnormal Negative /HPF [facility] pH (U) 5.5 [pH] 5.0 - 8.0 pH [facility] Protein (U) [Mass/Vol] 20 mg/dL Abnormal Negative [facility] RBC LM.HPF (Urine sed) [#/Area] 0-2 [facility] Specific gravity (U) [Rel density] 1.018 1.005 - 1.030 [facility] Urobilinogen (U) [Mass/Vol] Normal Normal (0-1) mg/dL [facility] WBC LM.HPF (Urine sed) [#/Area] 3-5 [facility] Vital signsOrdered By: Rosa Elena Puente on 09-19-2023 Oxygen saturation in Venous blood 85.8 % [facility] Vital signson 09-19-2023 Heart rate 97 /min bpm [facility] XR Chest 2 Viewson Patient Name: [...] in the midthoracic region with thoracic kyphosis. [facility] Clark Duffy MD - 09/19/2023 [...] Electronically Signed Date/Time: 09/19/2023 5:26 PM EDT [facility] Radiology Study observation (narrative) [facility] XR Pelvis 1 or 2 Viewson Patient [...] in the midthoracic region with thoracic kyphosis. [facility] Clark Duffy MD - 09/19/2023 [...] Electronically Signed Date/Time: 09/19/2023 5:26 PM EDT [facility] Radiology Study observation (narrative) Abe Maxi Abraham 09-08-2023 CNOV Office Visit (FAMDNA ) GONZALO DELUCA ([id number]) 1955 F Date Time Provider Department 09/08/23 [...] Mirtazapine (REMER (more content not included)... Normal [facility] 09-06-2023 [facility] Telephone (FAMDNA) GONZALO DELUCA ([id number]) 1955 F Date Time Provider Department 09/06/23 HERMINIA CASE During your visit today, we recorded the following information about you: Lala Shelley 09/06/2023 12:30 PM Signed Gonzalo is calling Herminia Case MD today with concern regarding Electronic Communication (FAX from [facility] is going to be coming over that needs to be faxed back to them ) Patient has been identified by name and birthdate. Duration of symptoms: N/A Person calling: self daughter: Karishma Call patient at: at home [phone] (home) [phone] (cell) Was an appointment scheduled: No Closing statement: Results or non-symptom based questions: Thank you for calling [facility], your call will be returned within the next business day. Whit Turner LPN 09/07/2023 9:05 AM Signed LM for patient letting her know we have not received the form from [facility]. Whit Shay LPN Allergies As of Date: 09/06/2023 Noted Allergy Reaction SEASONAL ALLERGIES 08/16/2017 5 - Intolerance Date Reviewed: 05/02/2023 Reviewed by: Whit Shay LPN - Fully Assessed Reason for Visit: Electronic Communication [890] Cmt: FAX from [facility] is going to be coming over that [...] Status:Closed by WHIT SHAY on 09/07/23 Normal [facility] CBC W Auto Differential pane l (Bld)on 08-07-2023 Basophils (Bld) [#/Vol] 0.0 10*3/uL 0.0 - 0.2 10*3/uL [facility] Basophils/100 WBC (Bld) 0.3 % 0.0 - 2.0 % [facility] Eosinophils (Bld) [#/Vol] 0.1 10*3/uL 0.0 - 0.5 10*3/uL [facility] Eosinophils/100 WBC (Bld) 0.8 % 0.0 - 6.0 % [facility] Erythrocyte distribution width (RBC) [Ratio] 12.6 % 11.5 - 15.0 % [facility] Hematocrit (Bld) [Volume fraction] 39.2 % 35.0 - 47.0 % [facility] Health Hemoglobin (Bld) [Mass/Vol] 12.6 g/dL 11.7 - 16.0 g/dL [facility] Variable Immature granulocytes (Bld) [#/Vol] 0.1 10*3/uL High NINF - 0.1 10*3/uL [facility] Health Immature granulocytes/100 WBC (Bld) 0.5 % 0.0 - 2.0 % [facility] Interpretation and review of laboratory results Abnormal [facility] Health Lymphocytes (Bld) [#/Vol] 1.0 10*3/uL 1.0 - 4.3 10*3/uL [facility] Health Lymphocytes/100 WBC (Bld) 9.6 % Low 15.0 - 45.0 % [facility] Health MCH (RBC) [Entitic mass] 30.9 pg 26. 0 - 34.0 pg [facility] MCHC (RBC) [Mass/Vol] 32.1 % 30.5 - 36.0 % [facility] MCV (RBC) [Entitic vol] 96.1 fL 77.0 - 99.0 fL [facility] Monocytes (Bld) [#/Vol] 1.3 10*3/uL High 0.0 - 0.9 10*3/uL [facility] Monocytes/100 WBC (Bld) 12.9 % 5.0 - 13.0 % [facility] Variable Neutrophils (Bld) [#/Vol] 7.8 10*3/uL High 1.8 - 7.5 10*3/uL [facility] Neutrophils/100 WBC (Bld) 75.9 % 38.0 - 82.0 % [facility] Nucleated RBC/100 WBC (Bld) [Ratio] 0.0 % [facility] Platelet mean volume (Bld) [Entitic vol] 9.8 fL 9.0 - 12.7 fL [facility] Platelets (Bld) [#/Vol] 351 10*3/uL 140 - 440 10*3/uL [facility] RBC (Bld) [#/Vol] 4.08 10*6/uL 3.80 - 5.2 0 10*6/uL [facility] WBC (Bld) [#/Vol] 10.3 10*3/uL 3.6 - 10.7 10*3/uL [facility] COVID-19, Flu A/B, and RSV C omboon 08-07-2023 Interpretation and review of laboratory results Normal [facility] Comprehensive metabolic 1998 panelon 08-07-2023 Albumin [Mass/Vol] 4.0 g/dL 3.5 - 5.0 g/dL [facility] ALP [Catalytic activity/Vol] 282 U/L High 38 - 126 U/L [facility] ALT [Catalytic activity/Vol] 47 U/L High 0 - 34 U/L [facility] Anion gap [Moles/Vol] 11 mmol/L 3 - 13 mmol/L [facility] AST [Catalytic activity/Vol] 62 U/L High 15 - 46 U/L [facility] Bilirubin [Mass/Vol] 1.1 mg/dL 0.2 - 1 .3 mg/dL [facility] Calcium [Mass/Vol] 9.2 mg/dL 8.4 - 10. 4 mg/dL [facility] Chloride [Moles/Vol] 96 mmol/L Low 98 - 10 7 mmol/L [facility] CO2 [Moles/Vol] 35 mmol/L High 22 - 30 mmol/L [facility] Creatinine [Mass/Vol] 0.57 mg/dL 0.52 - 1.04 mg/dL [facility] GFR/1.73 sq M.predicted MDRD (S/P/Bld) [Vol rate/Area] - PINF [facility] Comment on above: Calculation based on the Chronic Kidney Disease Epidemiology Collaboration (CKD-EPI) equation refit without adjustment for race Glucose [Mass/Vol] 119 mg/dL High 70 - 100 mg/dL [facility] Interpretation and review of laboratory results Abnormal [facility] Potassium [Moles/Vol] 3.1 mmol/L Low 3.5 - 5.1 mmol/L [facility] Protein [Mass/Vol] 7.9 g/dL 6.3 - 8.2 g/dL [facility] Sodium [Moles/Vol] 142 mmol/L 135 - 145 mmol/L [facility] Urea nitrogen [Mass/Vol] 10 mg/dL 7 - 17 mg/d L [facility] CHEMISTRY SPECIMEN MODERATELY HEMOLYZED; INTERPRET WITH CAUTION! [facility] Laboratory - Chemistry and C hemistry - challengeon 08-07-2023 Lactate [Moles/Vol] 2.0 mmol/L 0.7 - 2. 0 mmol/L [facility] Laboratory - Microbiology an d Antimicrobial susceptibilityon 08-07-2023 FLUAV RNA MILANA+probe Ql (Resp) Not detected Not Detected [facility] FLUBV RNA MILANA+probe Ql (Resp) Not detected Not Detected [facility] RSV RNA MILANA+probe Ql (Resp) Not detected Not Detected [facility] SARS-CoV-2 (COVID-19) RNA MILANA+probe Ql (Resp) Not detected Not Detected [facility]th SARS-CoV-2 (COVID-19) RNA MILANA+probe Ql (Unsp spec) Methodology: real-time, RT-PCR The SARS-CoV-2, Flu A/B, and RSV Combo assay is intended for in vitro diagnostic use under the FDA Emergency Use Authorization (EUA). This test has not been FDA cleared or approved. In compliance with this authorization, please visit www.fda.gov/media/9855 35/download or www.fda.gov/media/1427 36/download to access the applicable information sheets. [facility] No Panel Informationon 08-06 Interpretation and review of laboratory results Normal [facility] P [place] 38 degrees [facility] ND Interval 137 ms [facility] QRS [place] -35 degrees [facility] QRSD Interval 95 ms [facility] QT Interval 246 ms [facility] QTC Interval 299 ms [facility] T Wave [place] 0 degrees [facility] Sinus rhythm Inferior infarct, old Electronically Signed On 08-07-2023 15:06:03 EDT by Lorenzo Orozco CV EPIPHANY Lorenzo Orozco MD - 08/07/2023 IMPRESSION: Sinus rhythm Inferior infarct, old Electronically Signed On 08-07-2023 15:06:03 EDT by Lorenzo Orozco [facility] Vital signson 08-07-2023 Heart rate 89 /min bpm [facility] XR Chest Single viewon 08-06 1. [...] Electronically Signed Date/Time: 08/07/2023 4:05 PM EDT [facility] Patient Name: GONZALO [...] was obtained and reviewed. Special views: None. [facility] Ramses Gamble MD - 08/07/2023 [...] Electronically Signed Date/Time: 08/07/2023 4:05 PM EDT [facility] Radiology Study observation (narrative) [facility] XR Chest Single viewOrdered By: Ramses Gamble on 08-07-2023 [facility] Work Phone: TOX SCREEN ROUT URon 024 Amphetamines Confirm (U) [Mass/Vol] Negative Negative [facility] Barbiturates Urine Negative Negative [facility] Benzodiazepines Urine Negative Negative [facility] Cannabinoids Screen Ql (U) Positive Abnormal Negative [facility] Cocaine Ql (U) Negative Negative [facility] Ethanol (U) [Mass/Vol] <11 mg/dL Cl [facility] Opiates Screen Ql (U) Negative Negative [facility] oxyCODONE cutoff Screen (U) [Mass/Vol] Positive Abnormal Negative [facility] Phencyclidine Ql (U) Negative Negative [facility] Basic metabolic 1998 panelon 02-18-2023 Anion gap [Moles/Vol] 5 mmol/L 3 - 13 mmol/L [facility] Calcium [Mass/Vol] 8.2 mg/dL Low 8.4 - 10. 4 mg/dL [facility] Chloride [Moles/Vol] 107 mmol/L 98 - 10 7 mmol/L [facility] CO2 [Moles/Vol] 28 mmol/L 22 - 30 mmol/L [facility] Creatinine [Mass/Vol] 0.55 mg/dL 0.52 - 1.04 mg/dL [facility] GFR/1.73 sq M.predicted MDRD (S/P/Bld) [Vol rate/Area] - PINF [facility] Comment on above: Calculation based on the Chronic Kidney Disease Epidemiology Collaboration (CKD-EPI) equation refit without adjustment for race Glucose [Mass/Vol] 113 mg/dL High 70 - 100 mg/dL [facility] Interpretation and review of laboratory results Abnormal [facility] Potassium [Moles/Vol] 3.8 mmol/L 3.5 - 5.1 mmol/L [facility] Sodium [Moles/Vol] 140 mmol/L 135 - 145 mmol/L [facility] Urea nitrogen [Mass/Vol] 14 mg/dL 7 - 17 mg/d L [facility] CBC W Auto Differential pane l (Bld)Ordered By: Yair Sanchez on 02-18-2023 Basophils (Bld) [#/Vol] 0.0 10*3/uL 0.0 - 0.2 10*3/uL [facility] Basophils/100 WBC (Bld) 0.7 % 0.0 - 2.0 % [facility] Eosinophils (Bld) [#/Vol] 0.4 10*3/uL 0.0 - 0.5 10*3/uL [facility] Eosinophils/100 WBC (Bld) 7.3 % High 1.0 - 6.0 % [facility] Erythrocyte distribution width (RBC) [Ratio] 14.0 % 11.5 - 14.5 % [facility] Hematocrit (Bld) [Volume fraction] 30.7 % Low 35.0 - 47.0 % [facility] Hemoglobin (Bld) [Mass/Vol] 10.0 g/dL Low 11.7 - 16.0 g/dL [facility] Interpretation and review of laboratory results Abnormal [facility] Lymphocytes (Bld) [#/Vol] 0.8 10*3/uL Low 1.0 - 4.3 10*3/uL [facility] Lymphocytes/100 WBC (Bld) 15.3 % Low 20.0 - 40.0 % [facility] MCH (RBC) [Entitic mass] 31.1 pg 26. 0 - 34.0 pg [facility] MCHC (RBC) [Mass/Vol] 32.7 % 32.0 - 36.0 % [facility] MCV (RBC) [Entitic vol] 95.1 fL 80.0 - 98.0 fL [facility] Monocytes (Bld) [#/Vol] 0.4 10*3/uL 0.0 - 0.8 10*3/uL [facility] Monocytes/100 WBC (Bld) 8.6 % 2.0 - 10.0 % [facility] Neutrophils (Bld) [#/Vol] 3.5 10*3/uL 1.8 - 7.0 10*3/uL [facility] Neutrophils/100 WBC (Bld) 68.1 % 40.0 - 80.0 % [facility] Nucleated RBC/100 WBC (Bld) [Ratio] 0.0 % [facility] Platelet mean volume (Bld) [Entitic vol] 7.3 fL Low 7.4 - 12.4 fL [facility] Platelets (Bld) [#/Vol] 178 10*3/uL 140 - 440 10*3/uL [facility] RBC (Bld) [#/Vol] 3.23 10*6/uL Low 3.8 - 5.20 10*6/uL [facility] WBC (Bld) [#/Vol] 5.1 10*3/uL 3.6 - 10.7 10*3/uL [facility] Laboratory - Microbiology an d Antimicrobial susceptibilityOrdered By: Savanna Cerrato on 02-18-2023 SARS-CoV-2 (COVID-19) Ag IA.rapid Ql (Resp) Negative Negative [facility] Comment on above: A negative result do es not rule out the possibility of SARS-CoV-2 infection. NAAT-based methods should be considered for symptomatic patients presenting greater than seven days after onset of symptoms. Method: Lateral flow immunoassay. Fact sheets for healthcare providers and patients can be found at the following sites: https://www.fda.gov/media/134286/download https://www.fda.gov/media/046271/download SARS-CoV-2 (COVID-19) Ag IA. rapid Ql (Resp)Ordered By: Savanna Cerrato on 02-18-2023 Interpretation and review of laboratory results Normal [facility] Basic metabolic 1998 panelon 02-17-2023 Anion gap [Moles/Vol] 7 mmol/L 3 - 13 mmol/L [facility] Calcium [Mass/Vol] 8.5 mg/dL 8.4 - 10. 4 mg/dL [facility] Chloride [Moles/Vol] 106 mmol/L 98 - 10 7 mmol/L [facility] CO2 [Moles/Vol] 28 mmol/L 22 - 30 mmol/L [facility] Creatinine [Mass/Vol] 0.49 mg/dL Low 0.52 - 1.04 mg/dL [facility] GFR/1.73 sq M.predicted MDRD (S/P/Bld) [Vol rate/Area] - PINF [facility] Comment on above: Calculation based on the Chronic Kidney Disease Epidemiology Collaboration (CKD-EPI) equation refit without adjustment for race Glucose [Mass/Vol] 115 mg/dL High 70 - 100 mg/dL [facility] Interpretation and review of laboratory results Abnormal [facility] Potassium [Moles/Vol] 3.7 mmol/L 3.5 - 5.1 mmol/L [facility] Sodium [Moles/Vol] 141 mmol/L 135 - 145 mmol/L [facility] Urea nitrogen [Mass/Vol] 14 mg/dL 7 - 17 mg/d L [facility] NM Bone Limited Viewson 11 Moderately intense [...] MD Electronically Signed Date/Time: 02/17/2023 4:36 PM [facility] 1955 [id number] Exam Date/Time: 02/17/2023 10:41 Procedure: NM BONE [...] on plain films of the lumbar spine. [facility] Raul Farmer MD - 02/17/2023 [facility] Name: [facility] 1955 [id number] Exam Date/Time: 02/17/2023 10:41 Procedure: NM BONE [...] Electronically Signed Date/Time: 02/17/2023 4:36 PM EST [facility] Radiology Study observation (narrative) [facility] Bone Limited ViewsOrdered By: Raul Farmer on 02-17-2023 [facility] Basic metabolic 1998 panelon 02-16-2023 Anion gap [Moles/Vol] 2 mmol/L Low 3 - 13 mmol/L [facility] Calcium [Mass/Vol] 8.3 mg/dL Low 8.4 - 10. 4 mg/dL [facility] Chloride [Moles/Vol] 105 mmol/L 98 - 10 7 mmol/L [facility] CO2 [Moles/Vol] 32 mmol/L High 22 - 30 mmol/L [facility] Creatinine [Mass/Vol] 0.58 mg/dL 0.52 - 1.04 mg/dL [facility] GFR/1.73 sq M.predicted MDRD (S/P/Bld) [Vol rate/Area] - PINF [facility] Comment on above: Calculation based on the Chronic Kidney Disease Epidemiology Collaboration (CKD-EPI) equation refit without adjustment for race Glucose [Mass/Vol] 117 mg/dL High 70 - 100 mg/dL [facility] Interpretation and review of laboratory results Abnormal [facility] Potassium [Moles/Vol] 3.3 mmol/L Low 3.5 - 5.1 mmol/L [facility] Sodium [Moles/Vol] 139 mmol/L 135 - 145 mmol/L [facility] Urea nitrogen [Mass/Vol] 16 mg/dL 7 - 17 mg/d L [facility] Laboratory - Chemistry and C hemistry - challengeon 02-16-2023 Magnesium [Mass/Vol] 1.9 mg/dL 1.6 - 2 .3 mg/dL [facility] Magnesium [Mass/Vol]on 02-16 Interpretation and review of laboratory results Normal [facility] Basic metabolic 1998 panelon 02-15-2023 Anion gap [Moles/Vol] 6 mmol/L 3 - 13 mmol/L [facility] Calcium [Mass/Vol] 8.4 mg/dL 8.4 - 10. 4 mg/dL [facility] Chloride [Moles/Vol] 104 mmol/L 98 - 10 7 mmol/L [facility] CO2 [Moles/Vol] 28 mmol/L 22 - 30 mmol/L [facility] Creatinine [Mass/Vol] 0.52 mg/dL 0.52 - 1.04 mg/dL [facility] GFR/1.73 sq M.predicted MDRD (S/P/Bld) [Vol rate/Area] - PINF [facility] Comment on above: Calculation based on the Chronic Kidney Disease Epidemiology Collaboration (CKD-EPI) equation refit without adjustment for race Glucose [Mass/Vol] 91 mg/dL 70 - 100 mg/dL [facility] Interpretation and review of laboratory results Abnormal [facility] Potassium [Moles/Vol] 3.2 mmol/L Low 3.5 - 5.1 mmol/L [facility] Sodium [Moles/Vol] 138 mmol/L 135 - 145 mmol/L [facility] Urea nitrogen [Mass/Vol] 15 mg/dL 7 - 17 mg/d L [facility] CBC panel Auto (Bld)Ordered By: Rosa Ruiz on 02-15-2023 Erythrocyte distribution width (RBC) [Ratio] 13.8 % 11.5 - 14.5 % [facility] Hematocrit (Bld) [Volume fraction] 31.2 % Low 35.0 - 47.0 % [facility] Hemoglobin (Bld) [Mass/Vol] 10.6 g/dL Low 11.7 - 16.0 g/dL [facility] Interpretation and review of laboratory results Abnormal [facility] MCH (RBC) [Entitic mass] 31.5 pg 26. 0 - 34.0 pg [facility] MCHC (RBC) [Mass/Vol] 33.9 % 32.0 - 36.0 % [facility] MCV (RBC) [Entitic vol] 92.9 fL 80.0 - 98.0 fL [facility] Platelet mean volume (Bld) [Entitic vol] 7.7 fL 7.4 - 12.4 fL [facility] Platelets (Bld) [#/Vol] 163 10*3/uL 140 - 440 10*3/uL [facility] RBC (Bld) [#/Vol] 3.36 10*6/uL Low 3.8 - 5.20 10*6/uL [facility] WBC (Bld) [#/Vol] 5.2 10*3/uL 3.6 - 10.7 10*3/uL [facility] Laboratory - Chemistry and C hemistry - challengeon 02-15-2023 Magnesium [Mass/Vol] 1.9 mg/dL 1.6 - 2 .3 mg/dL [facility] Magnesium [Mass/Vol]on 02-15 Interpretation and review of laboratory results Normal [facility] 25-hydroxyvitamin D3 [Mass/V ol]on 02-14-2023 Interpretation and review of laboratory results Normal [facility] Therapy is based on measurement of Total 25-OHD with the following classification levels: Less than 20 ng/mL: Indicative of Vit D deficiency 20-30 ng/mL: Suggests Vit D insufficiency Optimal: Greater than or equal to 30 ng/mL Test performed by [employer] Competitive Immunoassay, measuring Total Vitamin D, not individual fractions. [facility] Laboratory - Chemistry and C hemistry - challengeon 02-14-2023 25-hydroxyvitamin D3 [Mass/Vol] 37 ng/mL 30 - 100 ng/mL [facility] Basic metabolic 1998 panelon 02-13-2023 Anion gap [Moles/Vol] 7 mmol/L 3 - 13 mmol/L [facility] Calcium [Mass/Vol] 9.1 mg/dL 8.4 - 10. 4 mg/dL [facility] Chloride [Moles/Vol] 98 mmol/L 98 - 10 7 mmol/L [facility] CO2 [Moles/Vol] 32 mmol/L High 22 - 30 mmol/L [facility] Creatinine [Mass/Vol] 0.50 mg/dL Low 0.52 - 1.04 mg/dL [facility] GFR/1.73 sq M.predicted MDRD (S/P/Bld) [Vol rate/Area] - PINF [facility] Comment on above: Calculation based on the Chronic Kidney Disease Epidemiology Collaboration (CKD-EPI) equation refit without adjustment for race Glucose [Mass/Vol] 96 mg/dL 70 - 100 mg/dL [facility] Interpretation and review of laboratory results Abnormal [facility] Potassium [Moles/Vol] 3.7 mmol/L 3.5 - 5.1 mmol/L [facility] Sodium [Moles/Vol] 137 mmol/L 135 - 145 mmol/L [facility] Urea nitrogen [Mass/Vol] 13 mg/dL 7 - 17 mg/d L [facility] CBC W Auto Differential pane l (Bld)Ordered By: Kina Valverde on 02-13-2023 Basophils (Bld) [#/Vol] 0.0 10*3/uL 0.0 - 0.2 10*3/uL [facility] Basophils/100 WBC (Bld) 0.3 % 0.0 - 2.0 % [facility] Eosinophils (Bld) [#/Vol] 0.1 10*3/uL 0.0 - 0.5 10*3/uL [facility] Eosinophils/100 WBC (Bld) 0.9 % Low 1.0 - 6.0 % [facility] Erythrocyte distribution width (RBC) [Ratio] 13.8 % 11.5 - 14.5 % [facility] Hematocrit (Bld) [Volume fraction] 36.2 % 35.0 - 47.0 % [facility] Hemoglobin (Bld) [Mass/Vol] 11.9 g/dL 11.7 - 16.0 g/dL [facility] Interpretation and review of laboratory results Abnormal [facility] Lymphocytes (Bld) [#/Vol] 0.7 10*3/uL Low 1.0 - 4.3 10*3/uL [facility] Lymphocytes/100 WBC (Bld) 6.4 % Low 20.0 - 40.0 % [facility] MCH (RBC) [Entitic mass] 30.7 pg 26. 0 - 34.0 pg [facility] MCHC (RBC) [Mass/Vol] 32.7 % 32.0 - 36.0 % [facility] MCV (RBC) [Entitic vol] 93.9 fL 80.0 - 98.0 fL [facility] Monocytes (Bld) [#/Vol] 0.4 10*3/uL 0.0 - 0.8 10*3/uL [facility] Monocytes/100 WBC (Bld) 3.7 % 2.0 - 10.0 % [facility] Neutrophils (Bld) [#/Vol] 9.9 10*3/uL High 1.8 - 7.0 10*3/uL [facility] Neutrophils/100 WBC (Bld) 88.7 % High 40.0 - 80.0 % [facility] Nucleated RBC/100 WBC (Bld) [Ratio] 0.0 % [facility] Platelet mean volume (Bld) [Entitic vol] 7.3 fL Low 7.4 - 12.4 fL [facility] Platelets (Bld) [#/Vol] 212 10*3/uL 140 - 440 10*3/uL [facility] RBC (Bld) [#/Vol] 3.86 10*6/uL 3.8 - 5.20 10*6/uL [facility] WBC (Bld) [#/Vol] 11.1 10*3/uL High 3.6 - 10.7 10*3/uL [facility] Variable [facility] XR Lumbar spine 2 or 3 Views on 02-13-2023 1. Multilevel, possible insufficiency compressive changes in the L2-L4 levels, mild and new in the L2 and L4 levels and moderate in the L3 level, similar to comparison. No other, acute osseous abnormality. 2. Degenerative change. Report Dictated on Electronically Signed By: Gianni Avila MD Electronically Signed Date/Time: 02/13/2023 8:25 PM [facility] [employer] [facility] Patient Name: GONZALO DELUCA : 1955 [...] also similar. Paraspinal soft tissues grossly unremarkable. [facility] Gianni Avila MD - 02/13/2023 [...] Electronically Signed Date/Time: 02/13/2023 8:25 PM EST [facility] Radiology Study observation (narrative) [facility] XR Shoulder - left 2 Viewson 02-13-2023 1. No acute osseous abnormality. 2. Remote posttraumatic and mild degenerative change. Report Dictated on Electronically Signed By: Gianni Avila MD Electronically Signed Date/Time: 02/13/2023 8:17 PM EST [facility] [employer] [facility] Patient Name: GONZALO DELUCA : 1955 [...] tissues grossly unremarkable. Left-sided portacatheter again noted. [facility] Gianni Avila MD - 02/13/2023 [facility] Name[facility] 1955 [id number] Exam Date/Time: 02/13/2023 20:13 Procedure: XR SHOULDER [...] Electronically Signed Date/Time: 02/13/2023 8:17 PM EST [facility] Radiology Study observation (narrative) [facility] XR Shoulder - left 2 ViewsOr dered By: Gianni Avila on 02-13-2023 [facility] Work Phone: Basic metabolic 1998 panelon 11-08-2022 Anion gap [Moles/Vol] 3 mmol/L 3 - 13 mmol/L [facility] Calcium [Mass/Vol] 8.1 mg/dL Low 8.4 - 10. 4 mg/dL [facility] Chloride [Moles/Vol] 105 mmol/L 98 - 10 7 mmol/L [facility] CO2 [Moles/Vol] 27 mmol/L 22 - 30 mmol/L [facility] Creatinine [Mass/Vol] 0.65 mg/dL 0.52 - 1.04 mg/dL [facility] GFR/1.73 sq M.predicted MDRD (S/P/Bld) [Vol rate/Area] - PINF [facility] Comment on above: Calculation based on the Chronic Kidney Disease Epidemiology Collaboration (CKD-EPI) equation refit without adjustment for race Glucose [Mass/Vol] 142 mg/dL High 70 - 100 mg/dL [facility] Interpretation and review of laboratory results Abnormal [facility] Potassium [Moles/Vol] 4.1 mmol/L 3.5 - 5.1 mmol/L [facility] Sodium [Moles/Vol] 136 mmol/L 135 - 145 mmol/L [facility] Urea nitrogen [Mass/Vol] 19 mg/dL High 7 - 17 mg/d L [facility] CBC W Auto Differential pane l (Bld)Ordered By: Rolando Shelton on 11-08-2022 Basophils (Bld) [#/Vol] 0.1 10*3/uL 0.0 - 0.2 10*3/uL [facility] Basophils/100 WBC (Bld) 0.7 % 0.0 - 2.0 % [facility] Eosinophils (Bld) [#/Vol] 0.0 10*3/uL 0.0 - 0.5 10*3/uL [facility] Eosinophils/100 WBC (Bld) 0.0 % Low 1.0 - 6.0 % [facility] Erythrocyte distribution width (RBC) [Ratio] 14.7 % High 11.5 - 14.5 % [facility] Hematocrit (Bld) [Volume fraction] 29.9 % Low 35.0 - 47.0 % [facility] Hemoglobin (Bld) [Mass/Vol] 10.3 g/dL Low 11.7 - 16.0 g/dL [facility] Interpretation and review of laboratory results Abnormal [facility] Lymphocytes (Bld) [#/Vol] 0.5 10*3/uL Low 1.0 - 4.3 10*3/uL [facility] Lymphocytes/100 WBC (Bld) 5.5 % Low 20.0 - 40.0 % [facility] MCH (RBC) [Entitic mass] 32.0 pg 26. 0 - 34.0 pg [facility] MCHC (RBC) [Mass/Vol] 34.5 % 32.0 - 36.0 % [facility] MCV (RBC) [Entitic vol] 92.8 fL 80.0 - 98.0 fL [facility] Monocytes (Bld) [#/Vol] 0.6 10*3/uL 0.0 - 0.8 10*3/uL [facility] Monocytes/100 WBC (Bld) 6.8 % 2.0 - 10.0 % [facility] Neutrophils (Bld) [#/Vol] 7.9 10*3/uL High 1.8 - 7.0 10*3/uL [facility] Neutrophils/100 WBC (Bld) 87.0 % High 40.0 - 80.0 % [facility] Nucleated RBC/100 WBC (Bld) [Ratio] 0.0 % [facility] Platelet mean volume (Bld) [Entitic vol] 7.6 fL 7.4 - 12.4 fL [facility] Platelets (Bld) [#/Vol] 182 10*3/uL 140 - 440 10*3/uL [facility] RBC (Bld) [#/Vol] 3.23 10*6/uL Low 3.8 - 5.20 10*6/uL [facility] WBC (Bld) [#/Vol] 9.1 10*3/uL 3.6 - 10.7 10*3/uL [facility] Basic metabolic 1998 panelon 11-07-2022 Anion gap [Moles/Vol] 0 mmol/L Low 3 - 13 mmol/L [facility] Calcium [Mass/Vol] 8.3 mg/dL Low 8.4 - 10. 4 mg/dL [facility] Chloride [Moles/Vol] 106 mmol/L 98 - 10 7 mmol/L [facility] CO2 [Moles/Vol] 29 mmol/L 22 - 30 mmol/L [facility] Creatinine [Mass/Vol] 0.71 mg/dL 0.52 - 1.04 mg/dL [facility] GFR/1.73 sq M.predicted MDRD (S/P/Bld) [Vol rate/Area] - PINF [facility] Comment on above: Calculation based on the Chronic Kidney Disease Epidemiology Collaboration (CKD-EPI) equation refit without adjustment for race Glucose [Mass/Vol] 96 mg/dL 70 - 100 mg/dL [facility] Interpretation and review of laboratory results Abnormal [facility] Potassium [Moles/Vol] 3.8 mmol/L 3.5 - 5.1 mmol/L [facility] Sodium [Moles/Vol] 135 mmol/L 135 - 145 mmol/L [facility] Urea nitrogen [Mass/Vol] 14 mg/dL 7 - 17 mg/d L [facility] Slightly Hemolyzed [facility] CBC W Auto Differential pane l (Bld)Ordered By: Hakeem Cruz on 11-07-2022 Basophils (Bld) [#/Vol] 0.0 10*3/uL 0.0 - 0.2 10*3/uL [facility] Basophils/100 WBC (Bld) 0.4 % 0.0 - 2.0 % [facility] Eosinophils (Bld) [#/Vol] 0.5 10*3/uL 0.0 - 0.5 10*3/uL [facility] Eosinophils/100 WBC (Bld) 7.5 % High 1.0 - 6.0 % [facility] Erythrocyte distribution width (RBC) [Ratio] 14.8 % High 11.5 - 14.5 % [facility] Hematocrit (Bld) [Volume fraction] 33.8 % Low 35.0 - 47.0 % [facility] Hemoglobin (Bld) [Mass/Vol] 11.2 g/dL Low 11.7 - 16.0 g/dL [facility] Interpretation and review of laboratory results Abnormal [facility] Lymphocytes (Bld) [#/Vol] 0.7 10*3/uL Low 1.0 - 4.3 10*3/uL [facility] Lymphocytes/100 WBC (Bld) 12.2 % Low 20.0 - 40.0 % [facility] MCH (RBC) [Entitic mass] 31.0 pg 26. 0 - 34.0 pg [facility] MCHC (RBC) [Mass/Vol] 33.3 % 32.0 - 36.0 % [facility] MCV (RBC) [Entitic vol] 93.0 fL 80.0 - 98.0 fL [facility] Monocytes (Bld) [#/Vol] 0.5 10*3/uL 0.0 - 0.8 10*3/uL [facility] Monocytes/100 WBC (Bld) 7.5 % 2.0 - 10.0 % [facility] Neutrophils (Bld) [#/Vol] 4.4 10*3/uL 1.8 - 7.0 10*3/uL [facility] Neutrophils/100 WBC (Bld) 72.4 % 40.0 - 80.0 % [facility] Nucleated RBC/100 WBC (Bld) [Ratio] 0.0 % [facility] Platelet mean volume (Bld) [Entitic vol] 7.0 fL Low 7.4 - 12.4 fL [facility] Platelets (Bld) [#/Vol] 213 10*3/uL 140 - 440 10*3/uL [facility] RBC (Bld) [#/Vol] 3.63 10*6/uL Low 3.8 - 5.20 10*6/uL [facility] WBC (Bld) [#/Vol] 6.0 10*3/uL 3.6 - 10.7 10*3/uL [facility] No Panel Informationon 11-07 There is no interpretation needed for this exam. IMAGING Sinus rhythm Inferior infarct, old Electronically Signed On 11-07-2022 1:11:05 EDT by Melva Hull CV Melva Albrecht, - 11/07/2022 IMPRESSION: Sinus rhythm Inferior infarct, old Electronically Signed On 11-07-2022 1:11:05 EDT by Melva Hull [facility] No Panel InformationOrdered By: Melva Hull on 11-07-2022 P [place] 69 degrees [facility] Work Phone: ND Interval 152 ms [facility] Work Phone: QRS [place] -35 degrees [facility] Work Phone: QRSD Interval 98 ms [facility] Perceivantt h Work Phone: QT Interval 395 ms [facility] Work Phone: QTC Interval 473 ms [facility] Work Phone: T Wave [place] -12 degrees [facility] Work Phone: [place] [facility] Work Phone: Urinalysis complete panel (U )on 11-07-2022 Bilirubin Ql (U) Negative Negative mg/dL [facility] Clarity (U) Clear Clear [facility] Color (U) Yellow Lt. Yellow [facility] Glucose Ql (U) Normal Normal (<70) mg/dL [facility] Hemoglobin Ql (U) Negative Negative mg/dL [facility] Interpretation and review of laboratory results Normal [facility] Ketones (U) [Mass/Vol] Negative Negat kenton mg/dL [facility] Leukocyte esterase Test strip Ql (U) Negative Negative Sandra/uL [facility] Nitrite Ql (U) Negative Negative [facility] th pH (U) 6.5 [pH] 5.0 - 8.0 pH [facility] Protein (U) [Mass/Vol] Negative Negat kenton mg/dL [facility] Specific gravity (U) [Rel density] 1.025 1.005 - 1.030 [facility] Urobilinogen (U) [Mass/Vol] Normal Normal (0-1) mg/dL [facility] Vital signsOrdered By: Celio Hull on 11-07-2022 Heart rate 121 /min bpm [facility] Variable Work Phone: Basic metabolic 1998 panelon 11-06-2022 Anion gap [Moles/Vol] 2 mmol/L Low 3 - 13 mmol/L [facility] Calcium [Mass/Vol] 8.4 mg/dL 8.4 - 10. 4 mg/dL [facility] Chloride [Moles/Vol] 105 mmol/L 98 - 10 7 mmol/L [facility] CO2 [Moles/Vol] 30 mmol/L 22 - 30 mmol/L [facility] Creatinine [Mass/Vol] 0.66 mg/dL 0.52 - 1.04 mg/dL [facility] GFR/1.73 sq M.predicted MDRD (S/P/Bld) [Vol rate/Area] - PINF [facility] Comment on above: Calculation based on the Chronic Kidney Disease Epidemiology Collaboration (CKD-EPI) equation refit without adjustment for race Glucose [Mass/Vol] 99 mg/dL 70 - 100 mg/dL [facility] Interpretation and review of laboratory results Abnormal [facility] Potassium [Moles/Vol] 3.5 mmol/L 3.5 - 5.1 mmol/L [facility] Sodium [Moles/Vol] 137 mmol/L 135 - 145 mmol/L [facility] Urea nitrogen [Mass/Vol] 12 mg/dL 7 - 17 mg/d L [facility] CBC panel Auto (Bld)Ordered By: Desiree Ho on 11-06-2022 Erythrocyte distribution width (RBC) [Ratio] 14.9 % High 11.5 - 14.5 % [facility] Hematocrit (Bld) [Volume fraction] 36.4 % 35.0 - 47.0 % [facility] Hemoglobin (Bld) [Mass/Vol] 12.1 g/dL 11.7 - 16.0 g/dL [facility] Interpretation and review of laboratory results Abnormal [facility] MCH (RBC) [Entitic mass] 31.0 pg 26. 0 - 34.0 pg [facility] MCHC (RBC) [Mass/Vol] 33.3 % 32.0 - 36.0 % [facility] MCV (RBC) [Entitic vol] 93.2 fL 80.0 - 98.0 fL [facility] Platelet mean volume (Bld) [Entitic vol] 7.2 fL Low 7.4 - 12.4 fL [facility] Platelets (Bld) [#/Vol] 238 10*3/uL 140 - 440 10*3/uL [facility] RBC (Bld) [#/Vol] 3.91 10*6/uL 3.8 - 5.20 10*6/uL [facility] WBC (Bld) [#/Vol] 10.3 10*3/uL 3.6 - 10.7 10*3/uL [facility] No Panel Informationon 11-06 Radiology Study observation (narrative) [facility] alth XR Hand - right 3 Viewson No fracture or acute osseous injury. Report Dictated on Electronically Signed By: Ankit Tripathi MD Electronically Signed Date/Time: 11/06/2022 2:14 PM T [facility] Patient Name: GONZALO [...] Otherwise no significant productive or erosive arthropathy. [facility] Ankit Tripathi MD - 11/06/2022 [...] Electronically Signed Date/Time: 11/06/2022 2:14 PM EDT [facility] Variable [facility] XR Hip - left 3 Viewson 10-19 Impression: Intertrochanteric left hip fracture, with foreshortening of the fracture fragments. Report Dictated on Electronically Signed By: Ankit Tripathi MD Electronically Signed Date/Time: 11/06/2022 2:28 PM EDT [facility] Patient Name: GONZALO DELUCA : [...] of erosion or widening. Normal osseous mineralization. [facility] Ankit Tripathi MD - 11/06/2022 [...] Electronically Signed Date/Time: 11/06/2022 2:28 PM EDT [facility] XR Ribs - left 2 Viewson 1. No acute cardiopulmonary disease. 2. Pulmonary hyperinflation. 3. Normal ribs. Report Dictated on Electronically Signed By: Ankit Tripathi MD Electronically Signed Date/Time: 11/06/2022 2:26 PM EDT [facility] [employer] [facility] Patient Name: GONZALO DELUCA : 1955 Exam Date/Time: 11/06/2022 14:18 Procedure: XR RIBS 2 VIEWS LEFT Ordering Provider: MCCANN JOSEPH Reason For Exam: Rib pain, fx suspected RIGHT RIBS AND CHEST CLINICAL INDICATION: Pain. TECHNIQUE: Three views were obtained COMPARISON: Correlation with chest radiograph May 21, 2022. FINDINGS: Stable appearance/location of the left-sided chest [id number] line. The cardiac and mediastinal silhouettes are unremarkable. The hyperinflated lungs demonstrate no consolidation or area of atelectasis. The costophrenic angles are sharp. No pneumothorax is noted. The ribs demonstrate no evidence for fracture or bone lesion. [facility] Ankit Tripathi MD - 11/06/2022 [facility] Name: [facility]ONZAL[facility]CA [facility] 1955 [id number] Exam Date/Time: 11/06/2022 14:18 Procedure: XR RIBS 2 VIEWS LEFT Ordering Provider: MCCANN JOSEPH Reason For Exam: Rib pain, fx suspected RIGHT RIBS AND CHEST CLINICAL INDICATION: Pain. TECHNIQUE: Three views were obtained COMPARISON: Correlation with chest radiograph May 21, 2022. FINDINGS: Stable appearance/location of the left-sided chest [id number] line. The cardiac and mediastinal silhouettes are [...] Electronically Signed Date/Time: 11/06/2022 2:26 PM EDT [facility] Radiology Study observation (narrative) [facility] alth XR Ribs - left 2 ViewsOrdere d By: Ankit Tripathi on 11-06-2022 [employer] Work Phone: CBC W Auto Differential pane l (Bld)on 09-15-2022 Basophils (Bld) [#/Vol] 0.05 10*3/uL <0.11 k/uL [facility] Basophils/100 WBC (Bld) 0.5 % [facility] Differential cell count method Nom (Bld) Auto [facility] Eosinophils (Bld) [#/Vol] 0.49 10*3/uL High <0.46 k/uL [facility] Eosinophils/100 WBC (Bld) 5.0 % [facility] Erythrocyte distribution width (RBC) [Ratio] 14.9 % 11.5 - 15.0 % [facility] Hematocrit (Bld) [Volume fraction] 39.3 % 36.0 - 46.0 % [facility] Hemoglobin (Bld) [Mass/Vol] 12.1 g/dL 11.5 - 15.5 g/dL [facility] Immature granulocytes (Bld) [#/Vol] 0.04 10*3/uL <0.10 k/uL [facility] Immature granulocytes/100 WBC (Bld) 0.4 % [facility] Lymphocytes (Bld) [#/Vol] 0.94 10*3/uL Low 1.00 - 4.00 k/uL [facility] Lymphocytes/100 WBC (Bld) 9.7 % [facility] MCH (RBC) [Entitic mass] 30.2 pg 26. 0 - 34.0 pg [facility] MCHC (RBC) [Mass/Vol] 30.8 g/dL 30.5 - 36.0 g/dL [facility] MCV (RBC) [Entitic vol] 98.0 fL 80.0 - 100.0 fL [facility] Monocytes (Bld) [#/Vol] 0.73 10*3/uL <0.87 k/uL [facility] Monocytes/100 WBC (Bld) 7.5 % [facility] Neutrophils (Bld) [#/Vol] 7.47 10*3/uL 1.45 - 7.50 k/uL [facility] Neutrophils/100 WBC (Bld) 76.9 % [facility] Nucleated RBC (Bld) [#/Vol] <0.01 k/uL [facility] Nucleated RBC/100 WBC (Bld) [Ratio] 0.0 /100 WBC [facility] Platelet mean volume (Bld) [Entitic vol] 9.3 fL 9.0 - 12.7 fL [facility] Platelets (Bld) [#/Vol] 349 10*3/uL 150 - 400 k/uL [facility] RBC (Bld) [#/Vol] 4.01 10*6/uL 3.90 - 5.2 0 m/uL [facility] WBC (Bld) [#/Vol] 9.72 10*3/uL 3.70 - 11. 00 k/uL [facility] Comprehensive metabolic 2000 panelon 09-15-2022 Albumin [Mass/Vol] 4.0 g/dL 3.9 - 4.9 g/dL [facility] ALP [Catalytic activity/Vol] 148 U/L High 34 - 123 U/L [facility] ALT [Catalytic activity/Vol] 12 U/L 7 - 38 U/L [facility] Anion gap [Moles/Vol] 11 mmol/L 9 - 18 mmol/L [facility] AST [Catalytic activity/Vol] 17 U/L 13 - 35 U/L [facility] Bilirubin [Mass/Vol] 0.4 mg/dL 0.2 - 1 .3 mg/dL [facility] Calcium [Mass/Vol] 9.8 mg/dL 8.5 - 10. 2 mg/dL [facility] Chloride [Moles/Vol] 103 mmol/L 97 - 10 5 mmol/L [facility] CO2 [Moles/Vol] 28 mmol/L 22 - 30 mmol/L [facility] Creatinine [Mass/Vol] 0.64 mg/dL 0.58 - 0.96 mg/dL [facility] Estimated Glomerular Filtration Rate 98 mL/min/1.73m >=60 mL/min/1.73m [facility] Glucose [Mass/Vol] 84 mg/dL 74 - 99 mg/dL [facility] Potassium [Moles/Vol] 4.4 mmol/L 3.7 - 5.1 mmol/L [facility] Protein [Mass/Vol] 7.3 g/dL 6.3 - 8.0 g/dL [facility] Sodium [Moles/Vol] 142 mmol/L 136 - 144 mmol/L [facility] Urea nitrogen [Mass/Vol] 15 mg/dL 7 - 21 mg/d L [facility] Lipid 1996 panelon Cholesterol [Mass/Vol] 169 mg/dL <200 mg/dL [facility] Cholesterol in HDL [Mass/Vol] 54 mg/dL >39 mg/dL [facility] Cholesterol in LDL [Mass/Vol] 85 mg/dL <100 mg/dL [facility] Cholesterol in LDL/Cholesterol in HDL [Mass ratio] 1.57 {ratio} <2.54 [facility] Cholesterol in VLDL [Mass/Vol] 30 mg/dL High <30 mg/dL [facility] Cholesterol non HDL [Mass/Vol] 115 mg/dL <130 mg/dL [facility] Cholesterol.total/Choles terol in HDL [Mass ratio] 3.13 {ratio} <5.10 [facility] Fasting Time 10 hrs [facility] Triglyceride [Mass/Vol] 150 mg/dL High <150 mg/dL [facility] Basic metabolic 1998 panelon 05-24-2022 Anion gap [Moles/Vol] 3 mmol/L 3 - 13 mmol/L [facility] Calcium [Mass/Vol] 8.4 mg/dL 8.4 - 10. 4 mg/dL [facility] Chloride [Moles/Vol] 106 mmol/L 98 - 10 7 mmol/L [facility] CO2 [Moles/Vol] 30 mmol/L 22 - 30 mmol/L [facility] Creatinine [Mass/Vol] 0.64 mg/dL 0.52 - 1.04 mg/dL [facility] GFR/1.73 sq M.predicted MDRD (S/P/Bld) [Vol rate/Area] - PINF [facility] Comment on above: Calculation based on the Chronic Kidney Disease Epidemiology Collaboration (CKD-EPI) equation refit without adjustment for race Glucose [Mass/Vol] 157 mg/dL High 70 - 100 mg/dL [facility] Interpretation and review of laboratory results Abnormal [facility] Potassium [Moles/Vol] 3.6 mmol/L 3.5 - 5.1 mmol/L [facility] Sodium [Moles/Vol] 139 mmol/L 135 - 145 mmol/L [facility] Urea nitrogen [Mass/Vol] 12 mg/dL 7 - 17 mg/d L [facility] CBC W Auto Differential pane l (Bld)on 05-24-2022 Basophils (Bld) [#/Vol] 0.0 10*3/uL 0.0 - 0.2 10*3/uL [facility] Basophils/100 WBC (Bld) 0.5 % 0.0 - 2.0 % [facility] Eosinophils (Bld) [#/Vol] 0.3 10*3/uL 0.0 - 0.5 10*3/uL [facility] Eosinophils/100 WBC (Bld) 3.0 % 1.0 - 6.0 % [facility] Erythrocyte distribution width (RBC) [Ratio] 13.5 % 11.5 - 14.5 % [facility] Hematocrit (Bld) [Volume fraction] 30.6 % Low 35.0 - 47.0 % [facility] Hemoglobin (Bld) [Mass/Vol] 10.0 g/dL Low 11.7 - 16.0 g/dL [facility] Interpretation and review of laboratory results Abnormal [facility] Lymphocytes (Bld) [#/Vol] 0.8 10*3/uL Low 1.0 - 4.3 10*3/uL [facility] Lymphocytes/100 WBC (Bld) 8.6 % Low 20.0 - 40.0 % [facility] MCH (RBC) [Entitic mass] 31.0 pg 26. 0 - 34.0 pg [facility] MCHC (RBC) [Mass/Vol] 32.6 % 32.0 - 36.0 % [facility] MCV (RBC) [Entitic vol] 95.1 fL 80.0 - 98.0 fL [facility] Monocytes (Bld) [#/Vol] 0.5 10*3/uL 0.0 - 0.8 10*3/uL [facility] Monocytes/100 WBC (Bld) 5.7 % 2.0 - 10.0 % [facility] Neutrophils (Bld) [#/Vol] 7.6 10*3/uL High 1.8 - 7.0 10*3/uL [facility] Neutrophils/100 WBC (Bld) 82.2 % High 40.0 - 80.0 % [facility] Nucleated RBC/100 WBC (Bld) [Ratio] 0.0 % [facility] Platelet mean volume (Bld) [Entitic vol] 7.1 fL Low 7.4 - 12.4 fL [facility] Platelets (Bld) [#/Vol] 261 10*3/uL 140 - 440 10*3/uL [facility] RBC (Bld) [#/Vol] 3.22 10*6/uL Low 3.8 - 5.20 10*6/uL [facility] WBC (Bld) [#/Vol] 9.3 10*3/uL 3.6 - 10.7 10*3/uL [facility] Basic metabolic 1998 panelon 05-23-2022 Anion gap [Moles/Vol] 2 mmol/L Low 3 - 13 mmol/L [facility] Calcium [Mass/Vol] 8.5 mg/dL 8.4 - 10. 4 mg/dL [facility] Chloride [Moles/Vol] 109 mmol/L High 98 - 10 7 mmol/L [facility] CO2 [Moles/Vol] 28 mmol/L 22 - 30 mmol/L [facility] Creatinine [Mass/Vol] 0.68 mg/dL 0.52 - 1.04 mg/dL [facility] GFR/1.73 sq M.predicted MDRD (S/P/Bld) [Vol rate/Area] - PINF [facility] Comment on above: Calculation based on the Chronic Kidney Disease Epidemiology Collaboration (CKD-EPI) equation refit without adjustment for race Glucose [Mass/Vol] 104 mg/dL High 70 - 100 mg/dL [facility] Interpretation and review of laboratory results Abnormal [facility] Potassium [Moles/Vol] 3.6 mmol/L 3.5 - 5.1 mmol/L [facility] Sodium [Moles/Vol] 138 mmol/L 135 - 145 mmol/L [facility] Urea nitrogen [Mass/Vol] 13 mg/dL 7 - 17 mg/d L [facility] CBC W Auto Differential pane l (Bld)Ordered By: Crystal Dupont on 05-23-2022 Basophils (Bld) [#/Vol] 0.1 10*3/uL 0.0 - 0.2 10*3/uL [facility] Basophils/100 WBC (Bld) 0.5 % 0.0 - 2.0 % [facility] Eosinophils (Bld) [#/Vol] 0.2 10*3/uL 0.0 - 0.5 10*3/uL [facility] Eosinophils/100 WBC (Bld) 2.5 % 1.0 - 6.0 % [facility] Erythrocyte distribution width (RBC) [Ratio] 13.9 % 11.5 - 14.5 % [facility] Hematocrit (Bld) [Volume fraction] 31.1 % Low 35.0 - 47.0 % [facility] Hemoglobin (Bld) [Mass/Vol] 10.3 g/dL Low 11.7 - 16.0 g/dL [facility] Interpretation and review of laboratory results Abnormal [facility] Lymphocytes (Bld) [#/Vol] 0.7 10*3/uL Low 1.0 - 4.3 10*3/uL [facility] Variable Lymphocytes/100 WBC (Bld) 6.8 % Low 20.0 - 40.0 % [facility] MCH (RBC) [Entitic mass] 31.5 pg 26. 0 - 34.0 pg [facility] MCHC (RBC) [Mass/Vol] 33.1 % 32.0 - 36.0 % [facility] MCV (RBC) [Entitic vol] 95.1 fL 80.0 - 98.0 fL [facility] Monocytes (Bld) [#/Vol] 0.7 10*3/uL 0.0 - 0.8 10*3/uL [facility] Monocytes/100 WBC (Bld) 7.5 % 2.0 - 10.0 % [facility] Neutrophils (Bld) [#/Vol] 7.9 10*3/uL High 1.8 - 7.0 10*3/uL [facility] Neutrophils/100 WBC (Bld) 82.7 % High 40.0 - 80.0 % [facility] Nucleated RBC/100 WBC (Bld) [Ratio] 0.1 % [facility] Platelet mean volume (Bld) [Entitic vol] 6.7 fL Low 7.4 - 12.4 fL [facility] Platelets (Bld) [#/Vol] 248 10*3/uL 140 - 440 10*3/uL [facility] RBC (Bld) [#/Vol] 3.27 10*6/uL Low 3.8 - 5.20 10*6/uL [facility] WBC (Bld) [#/Vol] 9.6 10*3/uL 3.6 - 10.7 10*3/uL [facility] Laboratory - Chemistry and C hemistry - challengeon 05-23-2022 Magnesium [Mass/Vol] 1.9 mg/dL 1.6 - 2 .3 mg/dL [facility] Magnesium [Mass/Vol]on 05-23 Interpretation and review of laboratory results Normal [facility] No Panel Informationon 05-23 [facility] Basic metabolic 1998 panelon 05-22-2022 Anion gap [Moles/Vol] 2 mmol/L Low 3 - 13 mmol/L [facility] Calcium [Mass/Vol] 8.4 mg/dL 8.4 - 10. 4 mg/dL [facility] Chloride [Moles/Vol] 105 mmol/L 98 - 10 7 mmol/L [facility] CO2 [Moles/Vol] 30 mmol/L 22 - 30 mmol/L [facility] Creatinine [Mass/Vol] 0.69 mg/dL 0.52 - 1.04 mg/dL [facility] GFR/1.73 sq M.predicted MDRD (S/P/Bld) [Vol rate/Area] - PINF [facility] Comment on above: Calculation based on the Chronic Kidney Disease Epidemiology Collaboration (CKD-EPI) equation refit without adjustment for race Glucose [Mass/Vol] 86 mg/dL 70 - 100 mg/dL [facility] Interpretation and review of laboratory results Abnormal [facility] Potassium [Moles/Vol] 4.2 mmol/L 3.5 - 5.1 mmol/L [facility] Sodium [Moles/Vol] 137 mmol/L 135 - 145 mmol/L [facility] Urea nitrogen [Mass/Vol] 13 mg/dL 7 - 17 mg/d L [facility] CBC W Auto Differential pane l (Bld)Ordered By: Hakeem Cruz on 05-22-2022 Basophils (Bld) [#/Vol] 0.0 10*3/uL 0.0 - 0.2 10*3/uL [facility] Basophils/100 WBC (Bld) 0.5 % 0.0 - 2.0 % [facility] Eosinophils (Bld) [#/Vol] 0.3 10*3/uL 0.0 - 0.5 10*3/uL [facility] Eosinophils/100 WBC (Bld) 4.1 % 1.0 - 6.0 % [facility] Erythrocyte distribution width (RBC) [Ratio] 14.0 % 11.5 - 14.5 % [facility] Hematocrit (Bld) [Volume fraction] 33.0 % Low 35.0 - 47.0 % [facility] Hemoglobin (Bld) [Mass/Vol] 10.8 g/dL Low 11.7 - 16.0 g/dL [facility] Interpretation and review of laboratory results Abnormal [facility] Lymphocytes (Bld) [#/Vol] 1.0 10*3/uL 1.0 - 4.3 10*3/uL [facility] Lymphocytes/100 WBC (Bld) 12.8 % Low 20.0 - 40.0 % [facility] MCH (RBC) [Entitic mass] 31.2 pg 26. 0 - 34.0 pg [facility] MCHC (RBC) [Mass/Vol] 32.8 % 32.0 - 36.0 % [facility] MCV (RBC) [Entitic vol] 95.1 fL 80.0 - 98.0 fL [facility] Monocytes (Bld) [#/Vol] 0.6 10*3/uL 0.0 - 0.8 10*3/uL [facility] Monocytes/100 WBC (Bld) 8.6 % 2.0 - 10.0 % [facility] Neutrophils (Bld) [#/Vol] 5.6 10*3/uL 1.8 - 7.0 10*3/uL [facility] Neutrophils/100 WBC (Bld) 74.0 % 40.0 - 80.0 % [facility] Nucleated RBC/100 WBC (Bld) [Ratio] 0.0 % [facility] Platelet mean volume (Bld) [Entitic vol] 7.0 fL Low 7.4 - 12.4 fL [facility] Platelets (Bld) [#/Vol] 238 10*3/uL 140 - 440 10*3/uL [facility] RBC (Bld) [#/Vol] 3.47 10*6/uL Low 3.8 - 5.20 10*6/uL [facility] WBC (Bld) [#/Vol] 7.5 10*3/uL 3.6 - 10.7 10*3/uL [facility] Laboratory - Chemistry and C hemistry - challengeon 05-22-2022 Magnesium [Mass/Vol] 2.2 mg/dL 1.6 - 2 .3 mg/dL [facility] Magnesium [Mass/Vol]on 05-22 Interpretation and review of laboratory results Normal [facility] No Panel Informationon 05-22 [facility] Basic metabolic 1998 panelon 05-21-2022 Anion gap [Moles/Vol] 1 mmol/L Low 3 - 13 mmol/L [facility] Calcium [Mass/Vol] 9.1 mg/dL 8.4 - 10. 4 mg/dL [facility] Chloride [Moles/Vol] 103 mmol/L 98 - 10 7 mmol/L [facility] CO2 [Moles/Vol] 35 mmol/L High 22 - 30 mmol/L [facility] Creatinine [Mass/Vol] 0.78 mg/dL 0.52 - 1.04 mg/dL [facility] GFR/1.73 sq M.predicted MDRD (S/P/Bld) [Vol rate/Area] 84.4 mL/min/{1.73_m2} - PINF [facility] Comment on above: Calculation based on the Chronic Kidney Disease Epidemiology Collaboration (CKD-EPI) equation refit without adjustment for race Glucose [Mass/Vol] 116 mg/dL High 70 - 100 mg/dL [facility] Potassium [Moles/Vol] 4.2 mmol/L 3.5 - 5.1 mmol/L [facility] Sodium [Moles/Vol] 138 mmol/L 135 - 145 mmol/L [facility] Urea nitrogen [Mass/Vol] 15 mg/dL 7 - 17 mg/d L [facility] CBC W Auto Differential pane l (Bld)Ordered By: Yair Sanchez on 05-21-2022 Basophils (Bld) [#/Vol] 0.0 10*3/uL 0.0 - 0.2 10*3/uL [facility] Basophils/100 WBC (Bld) 0.2 % 0.0 - 2.0 % [facility] Eosinophils (Bld) [#/Vol] 0.2 10*3/uL 0.0 - 0.5 10*3/uL [facility] Eosinophils/100 WBC (Bld) 1.8 % 1.0 - 6.0 % [facility] Erythrocyte distribution width (RBC) [Ratio] 14.0 % 11.5 - 14.5 % [facility] Hematocrit (Bld) [Volume fraction] 39.0 % 35.0 - 47.0 % [facility] Hemoglobin (Bld) [Mass/Vol] 12.5 g/dL 11.7 - 16.0 g/dL [facility] Interpretation and review of laboratory results Abnormal [facility] Lymphocytes (Bld) [#/Vol] 0.7 10*3/uL Low 1.0 - 4.3 10*3/uL [facility] Lymphocytes/100 WBC (Bld) 5.6 % Low 20.0 - 40.0 % [facility] MCH (RBC) [Entitic mass] 30.7 pg 26. 0 - 34.0 pg [facility] MCHC (RBC) [Mass/Vol] 32.1 % 32.0 - 36.0 % [facility] MCV (RBC) [Entitic vol] 95.4 fL 80.0 - 98.0 fL [facility] Monocytes (Bld) [#/Vol] 0.6 10*3/uL 0.0 - 0.8 10*3/uL [facility] Monocytes/100 WBC (Bld) 5.3 % 2.0 - 10.0 % [facility] Neutrophils (Bld) [#/Vol] 10.6 10*3/uL High 1.8 - 7.0 10*3/uL [facility] Neutrophils/100 WBC (Bld) 87.1 % High 40.0 - 80.0 % [facility] Nucleated RBC/100 WBC (Bld) [Ratio] 0.0 % [facility] Platelet mean volume (Bld) [Entitic vol] 7.5 fL 7.4 - 12.4 fL [facility] Platelets (Bld) [#/Vol] 339 10*3/uL 140 - 440 10*3/uL [facility] RBC (Bld) [#/Vol] 4.09 10*6/uL 3.8 - 5.20 10*6/uL [facility] WBC (Bld) [#/Vol] 12.1 10*3/uL High 3.6 - 10.7 10*3/uL [facility] CT Cervical spine WO contras ton 05-21-2022 1. No fracture or subluxation of the cervical vertebrae. 2. 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 3. Diffuse osteopenia. 4. Emphysema. Report Dictated on Electronically Signed By: Jaspreet Jeong Electronically Signed Date/Time: 05/21/2022 4:41 AM [facility] [employer] [employer] Patient Name: GONZALO DELUCA : 1955 [...] limited with CT imaging. Moderate apical emphysema [facility] Jaspreet Jeong DO - 05/21/2022 [...] Jeong Electronically Signed Date/Time: 05/21/2022 4:41 AM [facility] Radiology Study observation (narrative) Abe German alth CT Head WO contraston 2022 No acute intracranial process. Minimal right periorbital soft tissue swelling. Report Dictated on Electronically Signed By: Jaspreet Jeong Electronically Signed Date/Time: 05/21/2022 4:38 AM [facility] EMERGENCY DEPARTMENT [employer] Patient Name: GONZALO DELUCA : 1955 [...] Right preorbital air density is normal finding. [facility] Jaspreet Jeong, - 05/21/2022 Patient [...] Electronically Signed Date/Time: 05/21/2022 4:38 AM EST [facility] Radiology Study observation (narrative) [facility] Laboratory - Chemistry and C hemistry - challengeon 05-21-2022 Magnesium [Mass/Vol] 2.6 mg/dL High 1.6 - 2 .3 mg/dL [facility] No Panel Informationon 05-21 Interpretation and review of laboratory results Abnormal [facility] Martha Flores MD 05/21/2022 5:56 AM [...] Procedure completion: Tolerated well, no immediate complications [facility] Martha Flores MD 05/21/2022 5:56 AM [employer] Performed by: Martha Flores MD Authorized by: Martha Flores MD Consent: Consent obtained: Verbal Consent given by: Patient Risks discussed: Infection, need for additional repair, poor cosmetic result and poor wound healing [place] protocol: Patient identity confirmed: Verbally with patient [...] Procedure completion: Tolerated well, no immediate complications [facility] Martha Folres MD 05/21/2022 5:56 AM [employer] Performed by: Martha Flores MD Authorized by: Martha Flores MD Consent: Consent obtained: Verbal Consent given by: Patient Risks discussed: Infection, pain, poor cosmetic result, poor wound healing and need for additional repair [place] protocol: Patient identity confirmed: Verbally with patient [...] Procedure completion: Tolerated well, no immediate complications [facility] XR Chest Single viewon 05-21 1. [...] Electronically Signed Date/Time: 05/21/2022 3:52 AM EST [facility] Patient Name: GONZALO DELUCA : 1955 Exam Date/Time: 05/21/2022 04:12 Procedure: XR CHEST 1 VIEW Ordering Provider: FLORES PRISCA Reason For Exam: fall PORTABLE CHEST CLINICAL INDICATION: Fall. COMPARISON: 03/16/2020. Correlation is made with CT chest dated 10/14/2021. TECHNIQUE: A single frontal view of thorax was obtained and reviewed. [facility] Jaspreet Jeong DO - 05/21/2022 [...] Jeong Electronically Signed Date/Time: 05/21/2022 3:52 AM [facility] Radiology Study observation (narrative) [facility] XR Elbow - right 3 Viewson 0 05-21-2022 Elbow joint effusion . Occult elbow osseous fracture is likely, but not visualized. Osteopenia. Follow-up right elbow radiograph in 7-10 days is recommended. Report Dictated on Electronically Signed By: Jaspreet Jeong Electronically Signed Date/Time: 05/21/2022 4:16 AM [email or web address] Patient Name: GONZALO DELUCA : 1955 [...] are demineralized. No bone lesion is identified. [facility] Jaspreet Jeong DO - 05/21/2022 [...] Electronically Signed Date/Time: 05/21/2022 4:16 AM EST [facility] Radiology Study observation (narrative) Abe paz XR Elbow - right 3 ViewsOrde red By: Jaspreet Jeong on 05-21-2022 [employer] Work Phone: XR Pelvis 1 or 2 Viewson No acute traumatic osseous abnormality. Osteopenia. Report Dictated on Electronically Signed By: Jaspreet Jeong Electronically Signed Date/Time: 05/21/2022 4:17 AM EST [employer] Patient Name: GONZALO DELUCA : 1955 [...] lesion or soft tissue abnormality is identified. [facility] Jaspreet Jeong DO - 05/21/2022 [...] osseous abnormality. Osteopenia. Report Dictated on Workstation: [employer] Electronically Signed By: Jaspreet Jeong Electronically Signed Date/Time: 05/21/2022 4:17 AM [facility] Radiology Study observation (narrative) [facility] XR Shoulder - right 2 Viewso n 05-21-2022 1. Acute, transverse fracture through the right proximal surgical humeral neck. There is mild avulsion fracture of the right greater tuberosity. Diffuse osteopenia. Remote multiple mid thoracic compression fracture deformities, unchanged. Emphysema. Report Dictated on Electronically Signed By: Jaspreet Jeong Electronically Signed Date/Time: 05/21/2022 3:56 AM [email or web address] Patient Name: GONZALO DELUCA : 1955 [...] hyperinflated with flattened diaphragms, consistent with COPD. [employer] [facility] Jaspreet Jeong, DO - 05/21/2022 Patient Name: GONZALO DELUCA : 1955 [facility]#: [id number] Exam Date/Time: 05/21/2022 04:11 Procedure: XR SHOULDER [...] Electronically Signed Date/Time: 05/21/2022 3:56 AM EST [facility] Radiology Study observation (narrative) [facility] Basic Metabolic Panelon 07-2 Anion gap [Moles/Vol] 4 mmol/L Normal 3-13 [facility] Comment on above: Performed By: #### B MP3 #### [facility] [address] [place] [address] Calcium [Mass/Vol] 8.8 mg/dL Normal 8.4-10.4 [facility] Comment on above: Performed By: #### B MP3 #### [facility] [address] [place] [address] CO2 [Moles/Vol] 31 mmol/L High 22-30 [facility] Comment on above: Performed By: #### B MP3 #### [facility] [address] [place] [address] Glucose [Mass/Vol] 91 mg/dL Normal 70-100 [facility] Comment on above: Performed By: #### B MP3 #### [facility] [address] [place] [address] Urea nitrogen [Mass/Vol] 15 mg/dL Normal 9-20 [facility] Comment on above: Performed By: #### B MP3 #### [facility] [address] [place] [address] Creatinine [Mass/Vol] 0.80 mg/dL Normal 0.52-1.25 [facility] Comment on above: Performed By: #### B MP3 #### [facility] [address] [place] [address] GFR/1.73 sq M.predicted among blacks MDRD (S/P/Bld) [Vol rate/Area] 89.7 mL/min/{1.73_m2} Normal >60 [facility] Comment on above: Performed By: #### B MP3 #### [facility] [address] [place] [address] GFR/1.73 sq M.predicted among non-blacks MDRD (S/P/Bld) [Vol rate/Area] 77.4 mL/min/{1.73_m2} Normal >60 [facility] Comment on above: Result Comment: KDIG [...] System [address] [place] [address] Potassium [Moles/Vol] 4.1 mmol/L Normal 3.5-5.1 [facility] Comment on above: Performed By: #### B MP3 #### [facility] [address] [place] [address] Chloride [Moles/Vol] 106 mmol/L Normal 98-107 [facility] Comment on above: Performed By: #### B MP3 #### [facility] [address] [place] [address] Sodium [Moles/Vol] 141 mmol/L Normal 135-145 [facility] Comment on above: Performed By: #### B MP3 #### [facility] [address] [place] [address] Anion gap [Moles/Vol] 4 mmol/L 3 - 13 mmol/L [facility] Calcium [Mass/Vol] 8.8 mg/dL 8.4 - 10. 4 mg/dL [facility] Chloride [Moles/Vol] 106 mmol/L 98 - 10 7 mmol/L [facility] CO2 [Moles/Vol] 31 mmol/L High 22 - 30 mmol/L [facility] Creatinine [Mass/Vol] 0.8 mg/dL 0.52 - 1.25 mg/dL [facility] EGFR IF NonAfrican [place] 77.4 mL/min 60 - PINF mL/min [facility] Comment on above: KDIGO guidelines pro vide [...] [Mass/Vol] 91 mg/dL 70 - 100 mg/dL [facility] Interpretation and review of laboratory results Abnormal [facility] Potassium [Moles/Vol] 4.1 mmol/L 3.5 - 5.1 mmol/L [facility] Sodium [Moles/Vol] 141 mmol/L 135 - 145 mmol/L [facility] Urea nitrogen (BldV) [Mass/Vol] 15 mg/dL 9 - 20 mg/dL [facility] Test Performed by [facility], [address] [place], [place] [id number] [place] [address] LAB [facility] CT Chest w/ Contraston 10-14 CT Chest w/ Contrast Patient Name: GONZALO EDEN Computed Tomography ACCESSION EXAM DATE/TIME PROCEDURE ORDERING PROVIDER [id number] 10/14/2021 14:[address] Thorax w/ Contrast ZIYAD MENENDEZ CPT code 46051 Q9967 Reason For Exam (CT Thorax w/ [...] Transcribed Date and Time: 10/16/2021 12:06 Normal [facility] TOX SCREEN ROUT URon 022 Amphetamines Confirm (U) [Mass/Vol] Negative Negative [facility] Barbiturates Urine Negative Negative [facility] Benzodiazepines Urine Negative Negative [facility] Cannabinoids, Urine Negative Negative [facility] Cocaine Ql (U) Negative Negative [facility] Ethanol (U) [Mass/Vol] <11 <11 mg/dL [facility] Opiates Screen Ql (U) Negative Negative [facility] oxyCODONE cutoff Screen (U) [Mass/Vol] Positive Abnormal Negative [facility] Phencyclidine Ql (U) Negative Negative [facility] CT Chest w/ Contraston 12-26 CT Chest w/ Contrast Patient Name: GONZALO EDEN Computed Tomography ACCESSION EXAM DATE/TIME PROCEDURE ORDERING PROVIDER [id number] 12/26/2020 11:[address] Thorax w/ Contrast ZIYAD MENENDEZ CPT code 71269 Q9967 Reason For Exam (CT Thorax w/ [...] Transcribed Date and Time: 12/29/2020 2:04 Normal [facility] Creatinineon 12-26-2020 Creatinine [Mass/Vol] 0.73 mg/dL Normal 0.52-1.25 [facility] Comment on above: Performed By: #### C RTN3 #### [facility] [address] [place] [address] GFR/1.73 sq M.predicted among blacks MDRD (S/P/Bld) [Vol rate/Area] mL/min/{1.73_m2} Normal >60 [facility] Comment on above: Performed By: #### C RTN3 #### [facility] [address] [place] [address] GFR/1.73 sq M.predicted among non-blacks MDRD (S/P/Bld) [Vol rate/Area] 87.0 mL/min/{1.73_m2} Normal >60 [facility] Comment on above: Result Comment: KDIG [...] secretion. Performed By: #### C RTN3 #### [facility] [address] [place] [address] Creatinine, SerumOrdered By: Ziyad Menendez on 12-26-2020 Creatinine [Mass/Vol] 0.73 mg/dL 0.52 - 1.25 mg/dL [facility] Work Phone: EGFR IF NonAfrican [place]an 87.0 mL/min >60 [facility] Work Phone: Comment on above: KDIGO [...] MDRD (S/P/Bld) [Vol rate/Area] mL/min/{1.73_m2} >60 mL/min [employer] Work Phone: Test Performed by [employer], [address] [place] [address] [employer] Work Phone: [employer] Work Phone: XR ELBOW RIGHT (MIN 3 VIEWS) Ordered By: Lauren Lutz on 10-16-2020 Patient Name: GONZALO DELUCA Diagnostic Radiology ACCESSION EXAM DATE/TIME PROCEDURE ORDERING PROVIDER [id number] 10/16/2020 15:30 EDT CR Elbow 3+ Views Right NADEEM LUTZ DANIEL M CPT code 51654 Reason For Exam (CR Elbow 3+ Views [...] ANTHONY Transcribed Date and Time: 10/16/2020 3:57 [facility] Work Phone: Real, [employer] Incoming Radiology Results From [facility] - 10/16/2020 3:57 PM EDT Patient Name: GONZALO DELUCA Diagnostic Radiology ACCESSION EXAM DATE/TIME PROCEDURE ORDERING PROVIDER [id number] 10/16/2020 15:30 EDT CR Elbow 3+ Views Right NADEEM LUTZ DANIEL M CPT code 22832 Reason For Exam (CR Elbow 3+ Views [...] Radiology ACCESSION EXAM DATE/TIME PROCEDURE ORDERING PROVIDER [id number] 10/16/2020 15:30 EDT CR Spine Lumbosacral 2 NADEEM LUTZ DANIEL M or 3 Views CPT code 52811 Reason For Exam (CR Spine Lumbosacral 2 [...] Phone: [employer], [facility] Incoming Radiology Results From [facility] - 10/16/2020 5:12 PM EDT Patient Name: GONZALO DELUCA Diagnostic Radiology ACCESSION EXAM DATE/TIME PROCEDURE ORDERING PROVIDER [id number] 10/16/2020 15:30 EDT CR Spine Lumbosacral 2 NADEEM LUTZ DANIEL M or 3 Views CPT code 96379 Reason For Exam (CR Spine Lumbosacral 2 [...] Radiology ACCESSION EXAM DATE/TIME PROCEDURE ORDERING PROVIDER [id number] 10/16/2020 15:30 EDT CR Sacrum/Coccyx 2+ NADEEM LUTZ DANIEL M Views CPT code 87166 Reason For Exam (CR Sacrum/Coccyx 2+ Views) [...] Phone: [facility], [facility] Incoming Radiology Results From [facility] - 10/16/2020 5:14 PM EDT Patient Name: GONZALO DELUCA Diagnostic Radiology ACCESSION EXAM DATE/TIME PROCEDURE ORDERING PROVIDER [id number] 10/16/2020 15:30 EDT CR Sacrum/Coccyx 2+ NADEEM LUTZ, LAUREN King Views CPT code 53879 Reason For Exam (CR Sacrum/Coccyx 2+ Views) [...] Tomography ACCESSION EXAM DATE/TIME PROCEDURE ORDERING PROVIDER [id number] 09/24/2020 12:[address] Thorax w/ Contrast ZIYAD MENENDEZ CPT code 93407 Q9967 Reason For Exam (CT Thorax w/ [...] WENDELL Transcribed Date and Time: 09/24/2020 6:28 [facility] Work Phone: [facility], [facility] Incoming Radiology Results From [facility] - 09/24/2020 6:29 PM EDT Patient Name: GONZALO DELUCA Computed Tomography ACCESSION EXAM DATE/TIME PROCEDURE ORDERING PROVIDER [id number] 09/24/2020 12:[address] Thorax w/ Contrast ZIYAD MENENDEZ CPT code 09551 Q9967 Reason For Exam (CT Thorax w/ [...] and Time: 09/24/2020 6:28 [facility] Work Phone: [employer] Work Phone: [facility] 09-12-2020 [facility] HNO ID: [id number] Author: RT Alfred(R) Service: Radiology Author Type: [employer] Specialist Type: [facility] Filed: 09/12/2020 12:49 PM [...] Alfred(R) September 12, 2020 12:49 PM Normal [facility] Basic metabolic 2000 panelon 09-12-2020 Anion gap [Moles/Vol] 5 mmol/L Low 8-16 [facility] Comment on above: Order Comment: Speci men Type: BLOOD SPECIMEN Performed By: #### 2 4321-2 #### [facility] CLIA [id number] [address] [place] [address] [place] Calcium [Mass/Vol] 8.8 mg/dL Normal 8.5-10.1 [facility] Comment on above: Order Comment: Speci men Type: BLOOD SPECIMEN Performed By: #### 2 4321-2 #### [facility] CLIA [id number] [facility] [place] Chloride [Moles/Vol] 102 mmol/L Normal 98-107 [facility] Comment on above: Order Comment: Speci men Type: BLOOD SPECIMEN Performed By: #### 2 4321-2 #### [facility] CLIA [id number] [address] [place] [address] [place] CO2 [Moles/Vol] 33 mmol/L High 21-32 [facility] Comment on above: Order Comment: Speci men Type: BLOOD SPECIMEN Performed By: #### 2 4321-2 #### [facility] CLIA [id number] [address] [place] [address] [place] Creatinine [Mass/Vol] 0.86 mg/dL Normal 0.51-0.95 [facility] Comment on above: Order Comment: Speci men Type: BLOOD SPECIMEN Performed By: #### 2 4321-2 #### [facility] CLIA [id number] [address] [place] [address] [place] GFR/1.73 sq M.predicted among blacks MDRD (S/P/Bld) [Vol rate/Area] mL/min/{1.73_m2} [facility] Comment on above: Order Comment: Speci men Type: BLOOD SPECIMEN Performed By: #### 2 4321-2 #### [facility] CLIA [id number] [address] [place] [address] [place] GFR/1.73 sq M.predicted among non-blacks MDRD (S/P/Bld) [Vol rate/Area] mL/min/{1.73_m2} [facility] Comment on above: Order [...] GFR. Performed By: #### 2 4321-2 #### [facility] [employer] [facility] CLIA [id number] [address] [place] [address] [place] Glucose [Mass/Vol] 98 mg/dL Normal 70-99 [facility] Comment on above: Order Comment: Speci men Type: BLOOD SPECIMEN Result Comment: The [place] Diabetes Association (ADA) provides guidance for cutoff [...] Standards of Medical Care in Diabetes 2016, [place] Diabetes Association. Diabetes Care. 2016.39(Suppl 1). Performed By: #### 2 4321-2 #### [facility] CLIA [id number] [address] [place] [address] [place] Potassium [Moles/Vol] 3.7 mmol/L Normal 3.5-5.1 [facility] Comment on above: Order Comment: Speci men Type: BLOOD SPECIMEN Performed By: #### 2 4321-2 #### [facility] CLIA [id number] [address] [place] [address] [place] Sodium [Moles/Vol] 140 mmol/L Normal 136-145 [facility] Comment on above: Order Comment: Speci men Type: BLOOD SPECIMEN Performed By: #### 2 4321-2 #### [facility] CLIA [id number] [address] [place] [address] Urea nitrogen [Mass/Vol] 17 mg/dL Normal 7-18 [facility] Comment on above: Order Comment: Speci men Type: BLOOD SPECIMEN Performed By: #### 2 4321-2 #### [facility] CLIA [id number] [address] [place] [address] CBC W Auto Differential pane l (Bld)on 09-12-2020 Basophils (Bld) [#/Vol] 0.03 10*3/uL Normal <0.11 [facility] Comment on above: Order Comment: Speci men Type: BLOOD SPECIMEN Performed By: #### 5 7021-8 #### [facility] CLIA [id number] [address] [place] [address] Basophils/100 WBC (Bld) 0.5 % Normal [facility] Comment on above: Order Comment: Speci men Type: BLOOD SPECIMEN Performed By: #### 5 7021-8 #### [facility] CLIA [id number] [address] [place] [address] Differential cell count method Nom (Bld) Auto Normal [facility] Comment on above: Order Comment: Speci men Type: BLOOD SPECIMEN Performed By: #### 5 7021-8 #### [facility] CLIA [id number] [address] [place] [address] [place] Eosinophils (Bld) [#/Vol] 0.49 10*3/uL High <0.46 [facility] Comment on above: Order Comment: Speci men Type: BLOOD SPECIMEN Performed By: #### 5 7021-8 #### [facility] CLIA [id number] [address] [place] [address] Eosinophils/100 WBC (Bld) 8.2 % Normal [facility] Comment on above: Order Comment: Speci men Type: BLOOD SPECIMEN Performed By: #### 5 7021-8 #### [facility] CLIA [id number] [address] [place] [address] Erythrocyte distribution width (RBC) [Ratio] 12.7 % Normal 11.5-15.0 [facility] Comment on above: Order Comment: Speci men Type: BLOOD SPECIMEN Performed By: #### 5 7021-8 #### [facility] CLIA [id number] [address] [place] [address] Hematocrit (Bld) [Volume fraction] 34.2 % Low 36.0-46.0 [facility] Comment on above: Order Comment: Speci men Type: BLOOD SPECIMEN Performed By: #### 5 7021-8 #### [facility] CLIA [id number] [address] [place] [address] Hemoglobin (Bld) [Mass/Vol] 10.8 g/dL Low 11.5-15.5 [facility] Comment on above: Order Comment: Speci men Type: BLOOD SPECIMEN Performed By: #### 5 7021-8 #### [facility] CLIA [id number] [address] [place] [address] Lymphocytes (Bld) [#/Vol] 0.59 10*3/uL Low 1.00-4.00 [facility] Comment on above: Order Comment: Speci men Type: BLOOD SPECIMEN Performed By: #### 5 7021-8 #### [facility] CLIA [id number] [address] [place] [address] Lymphocytes/100 WBC (Bld) 9.9 % Normal [facility] Comment on above: Order Comment: Speci men Type: BLOOD SPECIMEN Performed By: #### 5 7021-8 #### [facility] CLIA [id number] [address] [place] [address] MCH (RBC) [Entitic mass] 30.7 pg Normal 26.0-34.0 [facility] Comment on above: Order Comment: Speci men Type: BLOOD SPECIMEN Performed By: #### 5 7021-8 #### [facility] CLIA [id number] [address] [place] [address] MCHC (RBC) [Mass/Vol] 31.6 g/dL Normal 30.5-36.0 [facility] Comment on above: Order Comment: Speci men Type: BLOOD SPECIMEN Performed By: #### 5 7021-8 #### [facility] CLIA [id number] [address] [place] [address] MCV (RBC) [Entitic vol] 97.2 fL Normal 80.0-100.0 [facility] Comment on above: Order Comment: Speci men Type: BLOOD SPECIMEN Performed By: #### 5 7021-8 #### [facility] CLIA [id number] [address] [place] [address] Monocytes (Bld) [#/Vol] 0.63 10*3/uL Normal <0.87 [facility] Comment on above: Order Comment: Speci men Type: BLOOD SPECIMEN Performed By: #### 5 7021-8 #### [facility] CLIA [id number] [address] [place] [address] Monocytes/100 WBC (Bld) 10.6 % Normal [facility] Comment on above: Order Comment: Speci men Type: BLOOD SPECIMEN Performed By: #### 5 7021-8 #### [facility] CLIA [id number] [address] [place] [address] Neutrophils (Bld) [#/Vol] 4.20 10*3/uL Normal 1.45-7.50 [facility] Comment on above: Order Comment: Speci men Type: BLOOD SPECIMEN Performed By: #### 5 7021-8 #### [facility] CLIA [id number] [address] [place] [address] Neutrophils/100 WBC (Bld) 70.8 % Normal [facility] Comment on above: Order Comment: Speci men Type: BLOOD SPECIMEN Performed By: #### 5 7021-8 #### [facility] CLIA [id number] [address] [place] [address] Platelet mean volume (Bld) [Entitic vol] 9.1 fL Normal 9.0-12.7 [facility] Comment on above: Order Comment: Speci men Type: BLOOD SPECIMEN Performed By: #### 5 7021-8 #### [facility] CLIA [id number] [address] [place] [address] [place] [facility] Platelets (Bld) [#/Vol] 215 10*3/uL Normal 150-400 [facility] Comment on above: Order Comment: Speci men Type: BLOOD SPECIMEN Performed By: #### 5 7021-8 #### [facility] CLIA [id number] [address] [place] [address] RBC (Bld) [#/Vol] 3.52 10*6/uL Low 3.90-5.20 [facility] Comment on above: Order Comment: Speci men Type: BLOOD SPECIMEN Performed By: #### 5 7021-8 #### [facility] CLIA [id number] [address] [place] [address] WBC (Bld) [#/Vol] 5.94 10*3/uL Normal 3.70-11.00 [facility] Comment on above: Order Comment: Speci men Type: BLOOD SPECIMEN Performed By: #### 5 7021-8 #### [facility] CLIA [id number] [address] [place] [address] CT BRAIN WO IVCONon 09-13-[address] BRAIN WO IVCON * * *Final Report* * * DATE OF EXAM: Sep 12 2020 1:00PM [facility] 0504 - CT BRAIN WO [...] clear. The visualized paranasal sinuses are clear. 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 IMPRESSION: 1. No CT evidence of acute intracranial abnormalities. 2. Small area of presumed encephalomalacia within right occipital lobe posteriorly. Clinical correlation is recommended. 3. Presumed postsurgical changes of right orbits are partially imaged. [employer] Consultant: [employer] Transcribe Date/Time: Sep 12 2020 1:04P Dictated by : ELIOT STERLING MD This examination was interpreted and the report reviewed and electronically signed by: ELIOT STERLING MD on Sep 12 2020 1:12PM EST [id number] Normal [facility] CT CERVICAL SPINE WO IVCONon 09-12-2020 CT CERVICAL SPINE WO IVCON * * *Final Report* * * DATE OF EXAM: Sep 12 2020 1:00PM [facility] 0505 - CT CERVICAL SPINE [...] Counting reference: Craniocervical junction. Anatomic Variants: None. 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 Alignment: Grade [...] vertebrae with counting from the craniocervical junction. [employer] Consultant: [facility] Transcribe Date/Time: Sep 12 2020 1:12P Dictated by : ELIOT STERLING MD This examination was interpreted and the report reviewed and electronically signed by: ELIOT STERLING MD on Sep 12 2020 1:28PM EST [id number] Normal [facility] ED NOTEon 09-12-2020 ED NOTE HNO ID: [id number] Author: Ursula De León RN Service: Emergency Medicine Author Type: Registered Nurse Type: ED Notes Filed: 09/12/2020 1:53 PM Note Text: Normal [facility] ED NOTE HNO ID: [id number] Author: Griselda Gaviria RN Service: Emergency Medicine Author Type: Registered Nurse Type: ED Notes Filed: 09/12/2020 11:45 AM Note Text: Pt c/o frequent falls, injury to right shoulder. Pt also c/o possible UTI-having urinary frequency. Normal [facility] ED PROV NOTEon 09-12-2020 ED PROV NOTE HNO ID: [id number] Author: Sneha Jett DO Service: Emergency Medicine [...] (135 lb) (more content not included)... Normal [facility] Urinalysis complete panel (U )on 09-12-2020 Bacteria LM.HPF (Urine sed) [#/Area] Moderate Abnormal None Seen [facility] Comment on above: Order Comment: Speci men Type: URINE SPECIMEN Performed By: #### 2 4356-8 #### [facility] CLIA [id number] [address] [place] [address] [place] Bilirubin Ql (U) Negative Normal Negative [facility] Comment on above: Order Comment: Speci men Type: URINE SPECIMEN Performed By: #### 2 4356-8 #### [facility] CLIA [id number] [facility] [place] [address] [place] Clarity (Unsp spec) Cloudy Abnormal Clear [facility] Comment on above: Order Comment: Speci men Type: URINE SPECIMEN Performed By: #### 2 4356-8 #### [facility] CLIA [id number] [address] [place], [place] [address] [place] Color (U) Yellow Normal Yellow [facility] Comment on above: Order Comment: Speci men Type: URINE SPECIMEN Performed By: #### 2 4356-8 #### [facility] CLIA [id number] [address] [place] [address] Epithelial cells LM.HPF (Urine sed) [#/Area] Few Normal [facility] Comment on above: Order Comment: Speci men Type: URINE SPECIMEN Performed By: #### 2 4356-8 #### [facility] CLIA [id number] [address] [place] [address] Glucose Test strip (U) [Mass/Vol] Negative Normal Negative [facility] Comment on above: Order Comment: Speci men Type: URINE SPECIMEN Performed By: #### 2 4356-8 #### [facility] CLIA [id number] [address] [place], [place] [address] [place] Hemoglobin Ql (U) Trace Abnormal Negative [facility] Comment on above: Order Comment: Speci men Type: URINE SPECIMEN Performed By: #### 2 4356-8 #### [facility] CLIA [id number] [address] [place], [place] [address] [place] Ketones Ql (U) Negative Normal Negative [facility] Comment on above: Order Comment: Speci men Type: URINE SPECIMEN Performed By: #### 2 4356-8 #### [facility] CLIA [id number] [facility] [place] [address] [facility] Leukocyte esterase Test strip Ql (U) 3+ Abnormal Negative [facility] Comment on above: Order Comment: Speci men Type: URINE SPECIMEN Performed By: #### 2 4356-8 #### [facility] CLIA [id number] [address] [place] [address] Nitrite Ql (U) Negative Normal Negative [facility] Comment on above: Order Comment: Speci men Type: URINE SPECIMEN Performed By: #### 2 4356-8 #### [facility] CLIA [id number] [address] [place] [address] pH (U) 6.0 [pH] Normal 5.0-8.0 [facility] Comment on above: Order Comment: Speci men Type: URINE SPECIMEN Performed By: #### 2 4356-8 #### [facility] CLIA [id number] [address] [place] [address] Protein (U) [Mass/Vol] Negative Normal Negative [facility] Comment on above: Order Comment: Speci men Type: URINE SPECIMEN Performed By: #### 2 4356-8 #### [facility] CLIA [id number] [address] [place] [address] RBC LM.HPF (Urine sed) [#/Area] 0-3 /HPF Normal 0-3 /HPF [facility] Comment on above: Order Comment: Speci men Type: URINE SPECIMEN Performed By: #### 2 4356-8 #### [facility] CLIA [id number] [address] [place] [address] Specific gravity (U) [Rel density] 1.015 Normal 1.005-1.030 [facility] Comment on above: Order Comment: Speci men Type: URINE SPECIMEN Performed By: #### 2 4356-8 #### [facility] CLIA [id number] [address] [place] [address] Urobilinogen Ql (U) 0.2 EU/dL Normal 0.2-1.0 EU/dL [facility] Comment on above: Order Comment: Speci men Type: URINE SPECIMEN Performed By: #### 2 4356-8 #### [facility] CLIA [id number] [address] [place], [place] [address] [place] [facility] WBC LM.HPF (Urine sed) [#/Area] 11-25 /HPF Abnormal 0-5 /HPF [facility] Comment on above: Order Comment: Speci men Type: URINE SPECIMEN Performed By: #### 2 4356-8 #### [facility] CLIA [id number] [address] [place], [place] [address] [facility] XR SHLDR >/=3V AP/HECTOR AP/OTH R RTon [...] are seen. IMPRESSION: No acute osseous abnormality. [employer] Consultant: PSCB Transcribe Date/Time: Sep 12 2020 12:55P Dictated by : SHANON CARTER MD This examination was interpreted and the report reviewed and electronically signed by: SHANON CARTER MD on Sep 12 2020 12:56PM EST [id number] Normal [facility] POCT Creatinineon 06-06-2020 Creatinine [Mass/Vol] 0.8 mg/dL 0.6 - 1.4 mg/dL [facility] Work Phone: Comment on above: Performed by [facility] CLIA ID:[id number] [place], [place] GFR/1.73 sq M predicted among blacks MDRD (S/P/Bld) [Vol rate/Area] mL/min/{1.73_m2} >60 mL/min [facility] Work Phone: GFR/1.73 sq M predicted among non-blacks MDRD (S/P/Bld) [Vol rate/Area] 78.2 mL/min/{1.73_m2} >60 [facility] Work Phone: Comment on above: KDIGO [...] renal tubular creatinine secretion. Test [facility], [address] [facility] [address], [place] [address] [place] [address] Work Phone: Brain Natriuretic Peptideon 03-16-2020 Natriuretic peptide B (Bld) [Mass/Vol] 100 pg/mL 0 - 125 pg/mL [place], [place] Test Performed by [facility], [address] [place], [place] [address] [place], [place] COVID-19, Rapidon 03-16-2020 Sodium [Moles/Vol] see below [place], [place] Comment on above: Not Detected Expected Result: Not Detected _ Isothermal nucleic acid amplification performed on the [employer] System by the [facility] Negative results do not preclude SARS-CoV-2 infection and should not be used as the sole basis for treatment or other patient management decisions. This assay was developed by [employer] and distributed under an Emergency Use Authorization (EUA) granted by the FDA for the qualitative detection of SARS-CoV-2 nucleic acid. Provider and patient fact sheets can be found at https://www.fda.gov/media/107036/download and https://www.fda.gov/media/212960/download. Test Performed by [employer] [facility], [address], [place], [place] [address] [place] Comprehensive Metabolic Pane sonja 03-16-2020 Albumin [Mass/Vol] 3.2 g/dL Low 3.5 - 5 g/dL [place] ALP [Catalytic activity/Vol] 98 U/L 38 - 126 U/L [place] ALT [Catalytic activity/Vol] 18 U/L 0 - 34 U/L [place] Comment on above: The ALT test is perf ormed by an updated assay method. Please note that the reference intervals have been changed and are now sex specific. Anion gap [Moles/Vol] 6 mmol/L [place], [place] AST [Catalytic activity/Vol] 27 U/L 15 - 46 U/L [place] Bilirubin Ql (U) 0.1 mg/dL Low 0.2 - 1.3 mg/dL [place] Calcium [Mass/Vol] 8.7 mg/dL 8.4 - 10. 4 mg/dL [place] Chloride [Moles/Vol] 104 mmol/L 98 - 10 7 mmol/L [place] CO2 [Moles/Vol] 29 mmol/L 22 - 30 mmol/L [place] Creatinine [Mass/Vol] 0.85 mg/dL 0.52 - 1.25 mg/dL [place] EGFR IF NonAfrican [place] 72.8 mL/min >60 [place] Comment on above: KDIGO guidelines pro [...] MDRD (S/P/Bld) [Vol rate/Area] 84.3 mL/min/{1.73_m2} >60 [place] Glucose [Mass/Vol] 96 mg/dL 70 - 100 mg/dL [place] Interpretation and review of laboratory results Abnormal [place] Potassium [Moles/Vol] 4.1 mmol/L 3.5 - 5.1 mmol/L [place] Protein [Mass/Vol] 6.0 g/dL Low 6.3 - 8.2 g/dL [place] Sodium [Moles/Vol] 138 mmol/L 135 - 145 mmol/L [place] Urea nitrogen [Mass/Vol] 14 mg/dL 7 - 20 mg/d L [place] Test Performed by [facility], [address] [place] [id number] [place] [address] Hemogram (CBC) w/Auto Diffon 03-16-2020 Absolute Baso # 0.0 10*3/uL 0 - 0.2 10*3/uL [place] Absolute Neut # 5.0 10*3/uL 1.8 - 7 10*3/uL [place] Basophils/100 WBC (Bld) 0.5 % 0 - 2 % [place] Eosinophils (Bld) [#/Vol] 0.1 10*3/uL 0 - 0.5 10*3/uL [place] Eosinophils/100 WBC (Bld) 1.7 % 1 - 6 % [place] Erythrocyte distribution width (RBC) [Ratio] 21.1 % High 11.5 - 14.5 % [place] Granulocytes/100 WBC (Bld) 76.2 % 40 - 80 % [place] Hematocrit (Bld) [Volume fraction] 27.3 % Low 35 - 47 % [place] Hemoglobin (Bld) [Mass/Vol] 8.9 g/dL Low 11.7 - 16 g/dL [place] Interpretation and review of laboratory results Abnormal [place] Lymphocytes (Bld) [#/Vol] 0.6 10*3/uL Low 1 - 4.3 10*3/uL [place] Lymphocytes/100 WBC (Bld) 9.5 % Low 20 - 40 % [place] MCH (RBC) [Entitic mass] 30.6 pg 26 - 34 pg [place] MCHC (RBC) [Mass/Vol] 32.7 % 32 - 36 % [place] MCV (RBC) [Entitic vol] 93.4 fL 79 - 98 fL [place], [place] Monocytes (Bld) [#/Vol] 0.8 10*3/uL 0 - 0.8 10*3/uL [place] Monocytes/100 WBC (Bld) 12.1 % High 2 - 10 % [place] Platelet mean volume (Bld) [Entitic vol] 6.9 fL Low 7.4 - 10.4 fL [place], [place] Platelets (Bld) [#/Vol] 235 10*3/uL 140 - 440 10*3/uL [place] RBC (Bld) [#/Vol] 2.93 10*6/uL Low 3.8 - 5.2 10*6/uL [place] WBC (Bld) [#/Vol] 6.6 10*3/uL 3.6 - 10.7 10*3/uL [place] Test Performed by [employer] [facility], [address], [place], [place] [address] [place], [place] Metabolic Panelon 03-16-2020 Sodium [Moles/Vol] Slight [place] RBC MORPHOLOGYon 03-16-2020 Anisocytosis Ql (Bld) Moderate [place] RBC morphology finding Nom (Bld) ABNORMAL [place] Test Performed by [facility], [address], [place], [place] [address] [place] Troponin x1on 03-16-2020 Troponin I.cardiac [Mass/Vol] ng/mL 0 - 0.034 ng/mL [place] Comment on above: . Test Performed by [facility], [address], [place], [place] [address] [place] XR CHEST PORTABLEon 03-16-20 20 Patient Name: GONZALO DELUCA Diagnostic Radiology ACCESSION EXAM DATE/TIME PROCEDURE ORDERING PROVIDER [id number] 03/16/2020 14:04 EST CR Chest Portable RODRÍGUEZ SOLIZ, AMELIE Cesar CPT code 71670 Reason For Exam (CR Chest Portable) Cough [...] JOHN Transcribed Date and Time: 03/16/2020 2:16 [place], [place] Real, [facility] - 03/16/2020 2:16 PM EST Patient Name: GONZALO DELUCA Diagnostic Radiology ACCESSION EXAM DATE/TIME PROCEDURE ORDERING PROVIDER [id number] 03/16/2020 14:04 EST CR Chest Portable MARTÍNEZRODRÍGUEZ, AMELIE Cesar CPT code 64459 Reason For Exam (CR Chest Portable) Cough [...] JOHN Transcribed Date and Time: 03/16/2020 2:16 [place], [place] CBC Auto Differentialon 12-0 Absolute Baso # 0.0 10*3/uL 0 - 0.2 10*3/uL [place] Absolute Neut # 2.5 10*3/uL 1.8 - 7 10*3/uL [place], [place] Basophils/100 WBC (Bld) 0.5 % 0 - 2 % [place] Eosinophils (Bld) [#/Vol] 0.2 10*3/uL 0 - 0.5 10*3/uL [place] Eosinophils/100 WBC (Bld) 6.1 % High 1 - 6 % [place] Erythrocyte distribution width (RBC) [Ratio] 16.2 % High 11.5 - 14.5 % [place] Granulocytes/100 WBC (Bld) 70.6 % 40 - 80 % [place] Hematocrit (Bld) [Volume fraction] 29.6 % Low 35 - 47 % [place] Hemoglobin (Bld) [Mass/Vol] 9.8 g/dL Low 11.7 - 16 g/dL [place] Interpretation and review of laboratory results Abnormal [place] Lymphocytes (Bld) [#/Vol] 0.5 10*3/uL Low 1 - 4.3 10*3/uL [place] Lymphocytes/100 WBC (Bld) 13.0 % Low 20 - 40 % [place] MCH (RBC) [Entitic mass] 29.6 pg 26 - 34 pg [place] MCHC (RBC) [Mass/Vol] 33.0 % 32 - 36 % [place] MCV (RBC) [Entitic vol] 89.6 fL 79 - 98 fL [place] Monocytes (Bld) [#/Vol] 0.3 10*3/uL 0 - 0.8 10*3/uL [place], [place] Monocytes/100 WBC (Bld) 9.8 % 2 - 10 % [place] Platelet mean volume (Bld) [Entitic vol] 7.5 fL 7.4 - 10.4 fL [place] Platelets (Bld) [#/Vol] 155 10*3/uL 140 - 440 10*3/uL [place] RBC (Bld) [#/Vol] 3.30 10*6/uL Low 3.8 - 5.2 10*6/uL [place] WBC (Bld) [#/Vol] 3.5 10*3/uL Low 3.6 - 10.7 10*3/uL [place] Test Performed by [facility], [address] [place] [address] [place], [place] Comp Metabolic Panelon 02-20 ALP [Catalytic activity/Vol] 89 U/L Normal 38-126 [facility] Variable [facility] Comment on above: Performed By: #### C MP3, MG3, HEMDF ####[facility] Variable [id number] [place] [address] ALT [Catalytic activity/Vol] 18 U/L Normal 0-34 [facility] Comment on above: Result Comment: The ALT test is performed by an updated assay method. Please note that the reference intervals have been changed and are now sex specific. Performed By: #### C MP3, MG3, HEMDF ####[place] [id number] [facility] [place] [address] Calcium [Mass/Vol] 8.8 mg/dL Normal 8.4-10.4 [facility] Comment on above: Performed By: #### C MP3, MG3, HEMDF ####[place] [address] [facility] [place] [address] Glucose [Mass/Vol] 79 mg/dL Normal 70-100 [facility] Comment on above: Performed By: #### C MP3, MG3, HEMDF ####[place] [id number] [facility] [place] Protein [Mass/Vol] 6.0 g/dL Low 6.3-8.2 [facility] Comment on above: Performed By: #### C MP3, MG3, HEMDF ####[place] [address] [facility] [place] Urea nitrogen [Mass/Vol] 11 mg/dL Normal 7-20 [facility] Comment on above: Performed By: #### C MP3, MG3, HEMDF ####[place] [address] [facility] Anion gap [Moles/Vol] 5 Normal [facility] Comment on above: Performed By: #### C MP3, MG3, HEMDF ####[place] [address] [facility] [place] AST [Catalytic activity/Vol] 35 U/L Normal 15-46 [facility] Comment on above: Performed By: #### C MP3, MG3, HEMDF ####[place] [address] [facility] Bilirubin [Mass/Vol] 0.3 mg/dL Normal 0.2-1.3 [facility] Comment on above: Performed By: #### C MP3, MG3, HEMDF ####[facility] [place], [place] CO2 [Moles/Vol] 31 mmol/L High 22-30 [facility] Comment on above: Performed By: #### C MP3, MG3, HEMDF ####[facility] [place], [place] Creatinine [Mass/Vol] 0.64 mg/dL Normal 0.52-1.25 [facility] Comment on above: Performed By: #### C MP3, MG3, HEMDF ####[place] [address] [place], [place] GFR/1.73 sq M predicted among blacks MDRD (S/P/Bld) [Vol rate/Area] mL/min/{1.73_m2} Normal >60 [facility] Comment on above: Performed By: #### C MP3, MG3, HEMDF ####[place] [address] [place], [place] GFR/1.73 sq M predicted among non-blacks MDRD (S/P/Bld) [Vol rate/Area] mL/min/{1.73_m2} Normal >60 [facility] Comment on above: Result Comment: KDIG O [...] Performed By: #### C MP3, MG3, HEMDF ####[facility] Variable [id number] [place], [place] Chloride [Moles/Vol] 101 mmol/L Normal 98-107 [facility] Comment on above: Performed By: #### C MP3, MG3, HEMDF ####[facility] [place], [place] Potassium [Moles/Vol] 4.2 mmol/L Normal 3.5-5.1 [facility] Comment on above: Performed By: #### C MP3, MG3, HEMDF ####[facility] [place], [place] Sodium [Moles/Vol] 137 mmol/L Normal 135-145 [facility] Comment on above: Performed By: #### C MP3, MG3, HEMDF ####[facility] [place], [place] Albumin [Mass/Vol] 2.2 g/dL Low 3.5-5.0 [facility] Comment on above: Performed By: #### C MP3, MG3, HEMDF ####[facility] [place], [place] Comprehensive Metabolic Pane sonja 02-21-2020 Albumin [Mass/Vol] 2.2 g/dL Low 3.5 - 5 g/dL [place] ALP [Catalytic activity/Vol] 89 U/L 38 - 126 U/L [place] ALT [Catalytic activity/Vol] 18 U/L 0 - 34 U/L [place] Comment on above: The ALT test is perf ormed by an updated assay method. Please note that the reference intervals have been changed and are now sex specific. Anion gap [Moles/Vol] 5 mmol/L [place], [place] AST [Catalytic activity/Vol] 35 U/L 15 - 46 U/L [place] Bilirubin Ql (U) 0.3 mg/dL 0.2 - 1.3 mg/dL [place] Calcium [Mass/Vol] 8.8 mg/dL 8.4 - 10. 4 mg/dL [place] Chloride [Moles/Vol] 101 mmol/L 98 - 10 7 mmol/L [place] CO2 [Moles/Vol] 31 mmol/L High 22 - 30 mmol/L [place] Creatinine [Mass/Vol] 0.64 mg/dL 0.52 - 1.25 mg/dL [place] EGFR IF NonAfrican [place] >90.0 >60 mL/min [place] Comment on above: KDIGO guidelines pro [...] MDRD (S/P/Bld) [Vol rate/Area] mL/min/{1.73_m2} >60 mL/min [place], [place] Glucose [Mass/Vol] 79 mg/dL 70 - 100 mg/dL [place] Interpretation and review of laboratory results Abnormal [place] Potassium [Moles/Vol] 4.2 mmol/L 3.5 - 5.1 mmol/L [place] Protein [Mass/Vol] 6.0 g/dL Low 6.3 - 8.2 g/dL [place], [place] Sodium [Moles/Vol] 137 mmol/L 135 - 145 mmol/L [place] Urea nitrogen [Mass/Vol] 11 mg/dL 7 - 20 mg/d L [place] Hemogram w/ Autodiffon 02-20 Abs Baso Cnt 0.0 10*3/uL Normal 0.0-0.2 [facility] [employer] Comment on above: Performed By: #### C MP3, MG3, HEMDF #### [facility] [address] [place], [place] Abs Neutrophile Cnt 2.5 10*3/uL Normal 1.8-7.0 [facility] Comment on above: Performed By: #### C MP3, MG3, HEMDF #### [place] [address] [address] [place], [place] Basophils/100 WBC (Bld) 0.5 % Normal 0.0-2.0 [facility] Comment on above: Performed By: #### C MP3, MG3, HEMDF #### [place] [address] [address] [place], [place] Eosinophils (Bld) [#/Vol] 0.2 10*3/uL Normal 0.0-0.5 [facility] Comment on above: Performed By: #### C MP3, MG3, HEMDF #### [place] [address] [address] [place], [place] Eosinophils/100 WBC (Bld) 6.1 % High 1.0-6.0 [facility] Comment on above: Performed By: #### C MP3, MG3, HEMDF #### [place] [address] [address] [place], [place] Erythrocyte distribution width (RBC) [Ratio] 16.2 % High 11.5-14.5 [facility] Comment on above: Performed By: #### C MP3, MG3, HEMDF #### [place] [address] [address] [place], [place] Granulocytes/100 WBC (Bld) 70.6 % Normal 40.0-80.0 [facility] Comment on above: Performed By: #### C MP3, MG3, HEMDF #### [place] [address] [address] [place], [place] Hematocrit (Bld) [Volume fraction] 29.6 % Low 35.0-47.0 [facility] Comment on above: Performed By: #### C MP3, MG3, HEMDF #### [place] [address] [address] [place], [place] Hemoglobin (Bld) [Mass/Vol] 9.8 g/dL Low 11.7-16.0 [facility] Comment on above: Performed By: #### C MP3, MG3, HEMDF #### [facility] [address] [place], [place] Lymphocytes (Bld) [#/Vol] 0.5 10*3/uL Low 1.0-4.3 [facility] Comment on above: Performed By: #### C MP3, MG3, HEMDF #### [place] [address] [address] [place], [place] Lymphocytes/100 WBC (Bld) 13.0 % Low 20.0-40.0 [facility] Comment on above: Performed By: #### C MP3, MG3, HEMDF #### [place] [address] [address] [place], [place] MCH (RBC) [Entitic mass] 29.6 pg Normal 26.0-34.0 [facility] Comment on above: Performed By: #### C MP3, MG3, HEMDF #### [place] [address] [address] [place], [place] MCHC (RBC) [Mass/Vol] 33.0 % Normal 32.0-36.0 [facility] Comment on above: Performed By: #### C MP3, MG3, HEMDF #### [place] [address] [address] [place], [place] MCV (RBC) [Entitic vol] 89.6 fL Normal 79.0-98.0 [facility] Comment on above: Performed By: #### C MP3, MG3, HEMDF #### [place] [address] [address] [place], [place] Monocytes (Bld) [#/Vol] 0.3 10*3/uL Normal 0.0-0.8 [facility] Comment on above: Performed By: #### C MP3, MG3, HEMDF #### [place] [address] [address] [place], [place] Monocytes/100 WBC (Bld) 9.8 % Normal 2.0-10.0 [facility] Comment on above: Performed By: #### C MP3, MG3, HEMDF #### [place] [address] [address] [place], [place] Platelet mean volume (Bld) [Entitic vol] 7.5 fL Normal 7.4-10.4 [facility] Comment on above: Performed By: #### C MP3, MG3, HEMDF #### [place] [address] [address] [place], [place] Platelets (Bld) [#/Vol] 155 10*3/uL Normal 140-440 [facility] Comment on above: Performed By: #### C MP3, MG3, HEMDF #### [place] [address] [address] [place], [place] RBC (Bld) [#/Vol] 3.30 10*6/uL Low 3.80-5.20 [facility] Comment on above: Performed By: #### C MP3, MG3, HEMDF #### [place] [address] [address] [place], [place] WBC (Bld) [#/Vol] 3.5 10*3/uL Low 3.6-10.7 [facility] Comment on above: Performed By: #### C MP3, MG3, HEMDF #### [place] [address] [address] [place], [place] Magnesiumon 02-21-2020 Magnesium [Mass/Vol] 1.6 mg/dL Normal 1.6-2.3 [facility] Comment on above: Performed By: #### C MP3, MG3, HEMDF #### [place] [address] [address] [place], [place] Magnesium [Mass/Vol] 1.6 mg/dL 1.6 - 2 .3 mg/dL [facility] [place] [facility], [place] Otheron 02-21-2020 Test Performed by [place] [address] [place] [address] [facility] [place] [facility], [place] CBC Auto Differentialon 11-1 Absolute Baso # 0.0 10*3/uL 0 - 0.2 10*3/uL [place] Absolute Neut # 5.3 10*3/uL 1.8 - 7 10*3/uL [place] Basophils/100 WBC (Bld) 0.4 % 0 - 2 % [place] Eosinophils (Bld) [#/Vol] 0.1 10*3/uL 0 - 0.5 10*3/uL [place] Eosinophils/100 WBC (Bld) 1.0 % 1 - 6 % [place] Erythrocyte distribution width (RBC) [Ratio] 15.0 % High 11.5 - 14.5 % [place] Granulocytes/100 WBC (Bld) 84.0 % High 40 - 80 % [place] Hematocrit (Bld) [Volume fraction] 34.1 % Low 35 - 47 % [place] Hemoglobin (Bld) [Mass/Vol] 11.3 g/dL Low 11.7 - 16 g/dL [place] Lymphocytes (Bld) [#/Vol] 0.4 10*3/uL Low 1 - 4.3 10*3/uL [place] Lymphocytes/100 WBC (Bld) 5.7 % Low 20 - 40 % [place] MCH (RBC) [Entitic mass] 29.7 pg 26 - 34 pg [place] MCHC (RBC) [Mass/Vol] 33.0 % 32 - 36 % [place] MCV (RBC) [Entitic vol] 89.8 fL 79 - 98 fL [place], [place] Monocytes (Bld) [#/Vol] 0.6 10*3/uL 0 - 0.8 10*3/uL [place] Monocytes/100 WBC (Bld) 8.9 % 2 - 10 % [place] Platelet mean volume (Bld) [Entitic vol] 6.7 fL Low 7.4 - 10.4 fL [place] Platelets (Bld) [#/Vol] 315 10*3/uL 140 - 440 10*3/uL [place] RBC (Bld) [#/Vol] 3.79 10*6/uL Low 3.8 - 5.2 10*6/uL [place] WBC (Bld) [#/Vol] 6.3 10*3/uL 3.6 - 10.7 10*3/uL [place] Comprehensive Metabolic Pane sonja 02-07-2020 Albumin [Mass/Vol] 3.5 g/dL 3.5 - 5 g/dL [place], [place] ALP [Catalytic activity/Vol] 91 U/L 38 - 126 U/L [place] ALT [Catalytic activity/Vol] 21 U/L 0 - 34 U/L [place] Comment on above: The ALT test is perf ormed by an updated assay method. Please note that the reference intervals have been changed and are now sex specific. Anion gap [Moles/Vol] 4 mmol/L [place], [place] AST [Catalytic activity/Vol] 24 U/L 15 - 46 U/L [place] Bilirubin Ql (U) 0.5 mg/dL 0.2 - 1.3 mg/dL [place] Calcium [Mass/Vol] 9.1 mg/dL 8.4 - 10. 4 mg/dL [place] Chloride [Moles/Vol] 101 mmol/L 98 - 10 7 mmol/L [place] CO2 [Moles/Vol] 33 mmol/L High 22 - 30 mmol/L [place] Creatinine [Mass/Vol] 0.66 mg/dL 0.52 - 1.25 mg/dL [place], [place] EGFR IF NonAfrican [place] >90.0 >60 mL/min [place], [place] Comment on above: KDIGO guidelines pro [...] MDRD (S/P/Bld) [Vol rate/Area] mL/min/{1.73_m2} >60 mL/min [place], [place] Glucose [Mass/Vol] 97 mg/dL 70 - 100 mg/dL [place], [place] Potassium [Moles/Vol] 3.9 mmol/L 3.5 - 5.1 mmol/L [place] Protein [Mass/Vol] 6.1 g/dL Low 6.3 - 8.2 g/dL [place], [place] Sodium [Moles/Vol] 139 mmol/L 135 - 145 mmol/L [place], [place] Urea nitrogen [Mass/Vol] 19 mg/dL 7 - 20 mg/d L [place], [place] Magnesiumon 02-07-2020 Magnesium [Mass/Vol] 1.5 mg/dL Low 1.6 - 2 .3 mg/dL [place], [place] Otheron 02-07-2020 Interpretation and review of laboratory results Abnormal [place] Test Performed by [facility], [address] [place] [address] [place], [place] CBC Auto Differentialon 01-19 Absolute Baso # 0.0 10*3/uL 0 - 0.2 10*3/uL [place], [place] Absolute Neut # 7.6 10*3/uL High 1.8 - 7 10*3/uL [place], [place] Basophils/100 WBC (Bld) 0.1 % 0 - 2 % [place] Eosinophils (Bld) [#/Vol] 0.0 10*3/uL 0 - 0.5 10*3/uL [place], [place] Eosinophils/100 WBC (Bld) 0.0 % Low 1 - 6 % [place] Erythrocyte distribution width (RBC) [Ratio] 14.3 % 11.5 - 14.5 % [place], [place] Granulocytes/100 WBC (Bld) 94.4 % High 40 - 80 % [place], [place] Hematocrit (Bld) [Volume fraction] 35.2 % 35 - 47 % [place] Hemoglobin (Bld) [Mass/Vol] 11.3 g/dL Low 11.7 - 16 g/dL [place] Interpretation and review of laboratory results Abnormal [place] Lymphocytes (Bld) [#/Vol] 0.2 10*3/uL Low 1 - 4.3 10*3/uL [place], [place] Lymphocytes/100 WBC (Bld) 2.8 % Low 20 - 40 % [place] MCH (RBC) [Entitic mass] 29.2 pg 26 - 34 pg [place], [place] MCHC (RBC) [Mass/Vol] 32.2 % 32 - 36 % [place] MCV (RBC) [Entitic vol] 90.7 fL 79 - 98 fL [place], [place] Monocytes (Bld) [#/Vol] 0.2 10*3/uL 0 - 0.8 10*3/uL [place], [place] Monocytes/100 WBC (Bld) 2.7 % 2 - 10 % [place] Platelet mean volume (Bld) [Entitic vol] 8.1 fL 7.4 - 10.4 fL [place], [place] Platelets (Bld) [#/Vol] 252 10*3/uL 140 - 440 10*3/uL [place], [place] RBC (Bld) [#/Vol] 3.88 10*6/uL 3.8 - 5.2 10*6/uL [place] WBC (Bld) [#/Vol] 8.1 10*3/uL 3.6 - 10.7 10*3/uL [place] [facility], [address] [place] [address] [place], [place] Comp Metabolic Panelon 01-30 ALP [Catalytic activity/Vol] 112 U/L Normal 38-126 [facility] Variable [facility] Comment on above: Performed By: #### C MP3, MG3, HEMDF #### [facility] [address] [place], [place] ALT [Catalytic activity/Vol] 20 U/L Normal 0-34 [facility] Comment on above: Result Comment: The ALT test is performed by an updated assay method. Please note that the reference intervals have been changed and are now sex specific. Performed By: #### C MP3, MG3, HEMDF #### [facility] [address], [place] Calcium [Mass/Vol] 9.3 mg/dL Normal 8.4-10.4 [facility] Comment on above: Performed By: #### C MP3, MG3, HEMDF #### [place] [address] [address] [place], [place] Glucose [Mass/Vol] 119 mg/dL High 70-100 [facility] Comment on above: Performed By: #### C MP3, MG3, HEMDF #### [place] [address] [address] [place], [place] Urea nitrogen [Mass/Vol] 16 mg/dL Normal 7-20 [facility] Comment on above: Performed By: #### C MP3, MG3, HEMDF #### [place] [address] [address] [place], [place] Anion gap [Moles/Vol] 9 Normal [facility] Comment on above: Performed By: #### C MP3, MG3, HEMDF #### [facility] [address] [place], [place] AST [Catalytic activity/Vol] 26 U/L Normal 15-46 [facility] Comment on above: Performed By: #### C MP3, MG3, HEMDF #### [place] [address] [address] [place], [place] Bilirubin [Mass/Vol] 0.2 mg/dL Normal 0.2-1.3 [facility] Comment on above: Performed By: #### C MP3, MG3, HEMDF #### [place] [address] [address] [place], [place] CO2 [Moles/Vol] 28 mmol/L Normal 22-30 [facility] Comment on above: Performed By: #### C MP3, MG3, HEMDF #### [address] Creatinine [Mass/Vol] 0.54 mg/dL Normal 0.52-1.25 [facility] Comment on above: Performed By: #### C MP3, MG3, HEMDF #### [address] GFR/1.73 sq M predicted among blacks MDRD (S/P/Bld) [Vol rate/Area] mL/min/{1.73_m2} Normal >60 [facility] Comment on above: Performed By: #### C MP3, MG3, HEMDF #### [address] GFR/1.73 sq M predicted among non-blacks MDRD (S/P/Bld) [Vol rate/Area] mL/min/{1.73_m2} Normal >60 [facility] Comment on above: Result Comment: KDIG O [...] By: #### C MP3, MG3, HEMDF #### [address] Protein [Mass/Vol] 6.9 g/dL Normal 6.3-8.2 [facility] Comment on above: Performed By: #### C MP3, MG3, HEMDF #### [facility] [address] [place] [address] Chloride [Moles/Vol] 102 mmol/L Normal 98-107 [facility] Comment on above: Performed By: #### C MP3, MG3, HEMDF #### [facility] [address] [place] [address] Potassium [Moles/Vol] 4.5 mmol/L Normal 3.5-5.1 [facility] Comment on above: Performed By: #### C MP3, MG3, HEMDF #### [facility] [address] [place] [address] Sodium [Moles/Vol] 139 mmol/L Normal 135-145 [facility] Comment on above: Performed By: #### C MP3, MG3, HEMDF #### [facility] [address] [place] [address] Albumin [Mass/Vol] 3.8 g/dL Normal 3.5-5.0 [facility] Comment on above: Performed By: #### C MP3, MG3, HEMDF #### [place] [address] [place] [address] Comprehensive Metabolic Pane sonja 01-31-2020 Albumin [Mass/Vol] 3.8 g/dL 3.5 - 5 g/dL [place] ALP [Catalytic activity/Vol] 112 U/L 38 - 126 U/L [place], [place] ALT [Catalytic activity/Vol] 20 U/L 0 - 34 U/L [place] Comment on above: The ALT test is perf ormed by an updated assay method. Please note that the reference intervals have been changed and are now sex specific. Anion gap [Moles/Vol] 9 mmol/L [place], [place] AST [Catalytic activity/Vol] 26 U/L 15 - 46 U/L [place], [place] Bilirubin Ql (U) 0.2 mg/dL 0.2 - 1.3 mg/dL [place], [place] Calcium [Mass/Vol] 9.3 mg/dL 8.4 - 10. 4 mg/dL [place] Chloride [Moles/Vol] 102 mmol/L 98 - 10 7 mmol/L [place] CO2 [Moles/Vol] 28 mmol/L 22 - 30 mmol/L [place] Creatinine [Mass/Vol] 0.54 mg/dL 0.52 - 1.25 mg/dL [place], [place] EGFR IF NonAfrican [place] >90.0 >60 mL/min [place], [place] Comment on above: KDIGO guidelines pro [...] MDRD (S/P/Bld) [Vol rate/Area] mL/min/{1.73_m2} >60 mL/min [place] Glucose [Mass/Vol] 119 mg/dL High 70 - 100 mg/dL [place], [place] Interpretation and review of laboratory results Abnormal [place] Potassium [Moles/Vol] 4.5 mmol/L 3.5 - 5.1 mmol/L [place] Protein [Mass/Vol] 6.9 g/dL 6.3 - 8.2 g/dL [place], [place] Sodium [Moles/Vol] 139 mmol/L 135 - 145 mmol/L [place], [place] Urea nitrogen [Mass/Vol] 16 mg/dL 7 - 20 mg/d L [place] Hemogram w/ Autodiffon 01-30 Abs Baso Cnt 0.0 10*3/uL Normal 0.0-0.2 [facility] Comment on above: Performed By: #### C MP3, MG3, HEMDF #### [place] [address] [place] [address] Abs Neutrophile Cnt 7.6 10*3/uL High 1.8-7.0 [facility] Comment on above: Performed By: #### C MP3, MG3, HEMDF #### [place] [address] [place] [address] Basophils/100 WBC (Bld) 0.1 % Normal 0.0-2.0 [facility] Comment on above: Performed By: #### C MP3, MG3, HEMDF #### [place] [address] [address] [place], [place] Eosinophils (Bld) [#/Vol] 0.0 10*3/uL Normal 0.0-0.5 [facility] Comment on above: Performed By: #### C MP3, MG3, HEMDF #### [place] [address] [address] [place], [place] Eosinophils/100 WBC (Bld) 0.0 % Low 1.0-6.0 [facility] Comment on above: Performed By: #### C MP3, MG3, HEMDF #### [place] [address] [place], [place] Erythrocyte distribution width (RBC) [Ratio] 14.3 % Normal 11.5-14.5 [facility] Comment on above: Performed By: #### C MP3, MG3, HEMDF #### [place] [address] [place] [address] Granulocytes/100 WBC (Bld) 94.4 % High 40.0-80.0 [facility] Comment on above: Performed By: #### C MP3, MG3, HEMDF #### [place] [address] [place] [address] Hematocrit (Bld) [Volume fraction] 35.2 % Normal 35.0-47.0 [facility] Comment on above: Performed By: #### C MP3, MG3, HEMDF #### [place] [address] [address] [place], [place] Hemoglobin (Bld) [Mass/Vol] 11.3 g/dL Low 11.7-16.0 [facility] Comment on above: Performed By: #### C MP3, MG3, HEMDF #### [place] [address] [place], [place] Lymphocytes (Bld) [#/Vol] 0.2 10*3/uL Low 1.0-4.3 [facility] Comment on above: Performed By: #### C MP3, MG3, HEMDF #### [place] [address] [place] Lymphocytes/100 WBC (Bld) 2.8 % Low 20.0-40.0 [facility] Comment on above: Performed By: #### C MP3, MG3, HEMDF #### [place] [address] [place] MCH (RBC) [Entitic mass] 29.2 pg Normal 26.0-34.0 [facility] Comment on above: Performed By: #### C MP3, MG3, HEMDF #### [address] MCHC (RBC) [Mass/Vol] 32.2 % Normal 32.0-36.0 [facility] Comment on above: Performed By: #### C MP3, MG3, HEMDF #### [place] [address] [place] MCV (RBC) [Entitic vol] 90.7 fL Normal 79.0-98.0 [facility] Comment on above: Performed By: #### C MP3, MG3, HEMDF #### [address] Monocytes (Bld) [#/Vol] 0.2 10*3/uL Normal 0.0-0.8 [facility] Comment on above: Performed By: #### C MP3, MG3, HEMDF #### [place] [address] [place] [address] Monocytes/100 WBC (Bld) 2.7 % Normal 2.0-10.0 [facility] Comment on above: Performed By: #### C MP3, MG3, HEMDF #### [place] [address] [place] [address] Platelet mean volume (Bld) [Entitic vol] 8.1 fL Normal 7.4-10.4 [facility] Comment on above: Performed By: #### C MP3, MG3, HEMDF #### [place] [address] [place] [address] Platelets (Bld) [#/Vol] 252 10*3/uL Normal 140-440 [facility] Comment on above: Performed By: #### C MP3, MG3, HEMDF #### [place] [address] [place] RBC (Bld) [#/Vol] 3.88 10*6/uL Normal 3.80-5.20 [facility] Comment on above: Performed By: #### C MP3, MG3, HEMDF #### [place] [address] [place] WBC (Bld) [#/Vol] 8.1 10*3/uL Normal 3.6-10.7 [facility] Comment on above: Performed By: #### C MP3, MG3, HEMDF #### [place] [address] [place] [address] Magnesiumon 01-31-2020 Magnesium [Mass/Vol] 1.8 mg/dL Normal 1.6-2.3 [facility] Comment on above: Performed By: #### C MP3, MG3, HEMDF #### [address] Magnesium [Mass/Vol] 1.8 mg/dL 1.6 - 2 .3 mg/dL [facility], [place] Otheron 01-31-2020 Test Performed by [address] [address] [facility], [place] CBC Auto Differentialon 11-0 Absolute Baso # 0.0 10*3/uL 0 - 0.2 10*3/uL [place], [place] Absolute Neut # 5.1 10*3/uL 1.8 - 7 10*3/uL [place] Basophils/100 WBC (Bld) 0.5 % 0 - 2 % [place] Eosinophils (Bld) [#/Vol] 0.5 10*3/uL 0 - 0.5 10*3/uL [place] Eosinophils/100 WBC (Bld) 6.7 % High 1 - 6 % [place] Erythrocyte distribution width (RBC) [Ratio] 14.5 % 11.5 - 14.5 % [place] Granulocytes/100 WBC (Bld) 73.3 % 40 - 80 % [place] Hematocrit (Bld) [Volume fraction] 35.8 % 35 - 47 % [place] Hemoglobin (Bld) [Mass/Vol] 11.5 g/dL Low 11.7 - 16 g/dL [place] Interpretation and review of laboratory results Abnormal [place] Lymphocytes (Bld) [#/Vol] 0.8 10*3/uL Low 1 - 4.3 10*3/uL [place] Lymphocytes/100 WBC (Bld) 12.2 % Low 20 - 40 % [place] MCH (RBC) [Entitic mass] 29.3 pg 26 - 34 pg [place] MCHC (RBC) [Mass/Vol] 32.2 % 32 - 36 % [place] MCV (RBC) [Entitic vol] 90.9 fL 79 - 98 fL [place] Monocytes (Bld) [#/Vol] 0.5 10*3/uL 0 - 0.8 10*3/uL [place] Monocytes/100 WBC (Bld) 7.3 % 2 - 10 % [place] Platelet mean volume (Bld) [Entitic vol] 8.1 fL 7.4 - 10.4 fL [place] Platelets (Bld) [#/Vol] 219 10*3/uL 140 - 440 10*3/uL [place] RBC (Bld) [#/Vol] 3.94 10*6/uL 3.8 - 5.2 10*6/uL [place] WBC (Bld) [#/Vol] 6.9 10*3/uL 3.6 - 10.7 10*3/uL [place] Test Performed by [facility] Variable [facility], [address], [place], [place] [address] [place], [place] Comprehensive Metabolic Pane sonja 01-24-2020 Albumin [Mass/Vol] 3.9 g/dL 3.5 - 5 g/dL [place] ALP [Catalytic activity/Vol] 97 U/L 38 - 126 U/L [place] ALT [Catalytic activity/Vol] 22 U/L 0 - 34 U/L [place] Comment on above: The ALT test is perf ormed by an updated assay method. Please note that the reference intervals have been changed and are now sex specific. Anion gap [Moles/Vol] 7 mmol/L [place], [place] AST [Catalytic activity/Vol] 27 U/L 15 - 46 U/L [place] Bilirubin Ql (U) 0.4 mg/dL 0.2 - 1.3 mg/dL [place] Calcium [Mass/Vol] 9.4 mg/dL 8.4 - 10. 4 mg/dL [place] Chloride [Moles/Vol] 102 mmol/L 98 - 10 7 mmol/L [place] CO2 [Moles/Vol] 31 mmol/L High 22 - 30 mmol/L [place] Creatinine [Mass/Vol] 0.73 mg/dL 0.52 - 1.25 mg/dL [place] EGFR IF NonAfrican [place] 87.5 mL/min >60 [place] Comment on above: KDIGO guidelines pro [...] MDRD (S/P/Bld) [Vol rate/Area] mL/min/{1.73_m2} >60 mL/min [place] Glucose [Mass/Vol] 106 mg/dL High 70 - 100 mg/dL [place], [place] Interpretation and review of laboratory results Abnormal [place] Potassium [Moles/Vol] 4.3 mmol/L 3.5 - 5.1 mmol/L [place] Protein [Mass/Vol] 6.8 g/dL 6.3 - 8.2 g/dL [place] Sodium [Moles/Vol] 140 mmol/L 135 - 145 mmol/L [place] Urea nitrogen [Mass/Vol] 20 mg/dL 7 - 20 mg/d L [place] Magnesiumon 01-24-2020 Magnesium [Mass/Vol] 2.0 mg/dL 1.6 - 2 .3 mg/dL [place], [place] Otheron 01-24-2020 Test Performed by [facility], [address] [place], [place] [address] [place] CBC Auto Differentialon - Absolute Baso # 0.1 10*3/uL 0 - 0.2 10*3/uL [place] Absolute Neut # 5.5 10*3/uL 1.8 - 7 10*3/uL [place] Basophils/100 WBC (Bld) 1.0 % 0 - 2 % [place] Eosinophils (Bld) [#/Vol] 1.2 10*3/uL High 0 - 0.5 10*3/uL [place] Eosinophils/100 WBC (Bld) 13.8 % High 1 - 6 % [place] Erythrocyte distribution width (RBC) [Ratio] 14.0 % 11.5 - 14.5 % [place] Granulocytes/100 WBC (Bld) 63.2 % 40 - 80 % [place] Hematocrit (Bld) [Volume fraction] 37.1 % 35 - 47 % [place] Hemoglobin (Bld) [Mass/Vol] 12.4 g/dL 11.7 - 16 g/dL [place] Interpretation and review of laboratory results Abnormal [place] Lymphocytes (Bld) [#/Vol] 1.3 10*3/uL 1 - 4.3 10*3/uL [place] Lymphocytes/100 WBC (Bld) 15.1 % Low 20 - 40 % [place] MCH (RBC) [Entitic mass] 30.2 pg 26 - 34 pg [place] MCHC (RBC) [Mass/Vol] 33.5 % 32 - 36 % [place] MCV (RBC) [Entitic vol] 90.0 fL 79 - 98 fL [place] Monocytes (Bld) [#/Vol] 0.6 10*3/uL 0 - 0.8 10*3/uL [place], [place] Monocytes/100 WBC (Bld) 6.9 % 2 - 10 % [place] Platelet mean volume (Bld) [Entitic vol] 8.1 fL 7.4 - 10.4 fL [place] Platelets (Bld) [#/Vol] 224 10*3/uL 140 - 440 10*3/uL [place] RBC (Bld) [#/Vol] 4.12 10*6/uL 3.8 - 5.2 10*6/uL [place] WBC (Bld) [#/Vol] 8.7 10*3/uL 3.6 - 10.7 10*3/uL [place] Test Performed by [employer] [facility], [address], [facility] [place], [place] Comprehensive Metabolic Pane sonja 01-17-2020 Albumin [Mass/Vol] 3.8 g/dL 3.5 - 5 g/dL [place] ALP [Catalytic activity/Vol] 99 U/L 38 - 126 U/L [place] ALT [Catalytic activity/Vol] 17 U/L 0 - 34 U/L [place] Comment on above: The ALT test is perf ormed by an updated assay method. Please note that the reference intervals have been changed and are now sex specific. Anion gap [Moles/Vol] 7 mmol/L [place] AST [Catalytic activity/Vol] 29 U/L 15 - 46 U/L [place] Bilirubin Ql (U) 0.3 mg/dL 0.2 - 1.3 mg/dL [place] Calcium [Mass/Vol] 8.7 mg/dL 8.4 - 10. 4 mg/dL [place] Chloride [Moles/Vol] 102 mmol/L 98 - 10 7 mmol/L [place] CO2 [Moles/Vol] 33 mmol/L High 22 - 30 mmol/L [place] Creatinine [Mass/Vol] 0.75 mg/dL 0.52 - 1.25 mg/dL [place] EGFR IF NonAfrican [place] 84.7 mL/min >60 [place] Comment on above: KDIGO guidelines pro [...] MDRD (S/P/Bld) [Vol rate/Area] mL/min/{1.73_m2} >60 mL/min [place] Glucose [Mass/Vol] 93 mg/dL 70 - 100 mg/dL [place] Interpretation and review of laboratory results Abnormal [place], [place] Potassium [Moles/Vol] 2.8 mmol/L Low 3.5 - 5.1 mmol/L [place] Protein [Mass/Vol] 6.6 g/dL 6.3 - 8.2 g/dL [place] Sodium [Moles/Vol] 142 mmol/L 135 - 145 mmol/L [place], [place] Urea nitrogen [Mass/Vol] 9 mg/dL 7 - 20 mg/d L [place] Magnesiumon 01-17-2020 Magnesium [Mass/Vol] 1.9 mg/dL 1.6 - 2 .3 mg/dL [place] Otheron 01-17-2020 Test Performed by [facility], [address] [place] [id number] [place] [address] CT Nonbill Guide Rad Therapy on 12-26-2019 CT Nonbill Guide Rad Therapy Patient Name: GONZALO DELUCA CT Exam Date/Time 12/26/2019 11:38:[address] Nonbill Guide Rad Therapy Ordering Physician MD WU, BURKE E Accession Number [id number] Reason For Exam Endometriod Ca Report CT of the abdomen and pelvis without intravenous contrast, 12/26/2019. Reason for examination: Endometrial cancer. Patient for radiation therapy. COMPARISON: October 27, 2019. TECHNIQUE: Large [id number] 3 mm axial images were obtained through [...] Transcribed Date and Time: 12/26/2019 3:50 Normal [facility] Otheron 12-26-2019 Patient Name: GONZALO DELUCA ---CT--- Exam Date/Time 12/26/2019 11:38:[address] Nonbill Guide Rad Therapy Ordering Physician MD WU, BURKE E Accession Number [id number] Reason For Exam Endometriod Ca Report CT of the abdomen and pelvis without intravenous contrast, 12/26/2019. Reason for examination: Endometrial cancer. Patient for radiation therapy. COMPARISON: October 27, 2019. TECHNIQUE: Large [id number] 3 mm axial images were obtained through [...] M Transcribed Date and Time: 12/26/2019 3:50 [place], [place] Real, [facility] - 12/26/2019 3:55 PM EDT Patient Name: GONZALO DELUCA ---CT--- Exam Date/Time 12/26/2019 11:38:[address] Nonbill Guide Rad Therapy Ordering Physician MD WU, BURKE E Accession Number [id number] Reason For Exam Endometriod Ca Report CT of the abdomen and pelvis without intravenous contrast, 12/26/2019. Reason for examination: Endometrial cancer. Patient for radiation therapy. COMPARISON: October 27, 2019. TECHNIQUE: Large tkfgt-ly-[id number] 3 mm axial images were obtained through [...] M Transcribed Date and Time: 12/26/2019 3:50 [facility], [place] XA SPECIAL ANGIOGRAPHY PROCE [facility] 12-19-2019 Patient Name: GONZALO DELUCA ---Special Procedures--- Exam Date/Time 12/19/2019 14:31:06 EDT Exam XA Special Angiography Procedure Ordering Physician ZIYAD MENENDEZ Accession Number [id number] Reason For Exam Mediport placement Report LEFT [...] MALAY Transcribed Date and Time: 12/19/2019 2:32 [facility], [place] Real, [facility] Incoming Radiology Results From [facility] - 12/19/2019 2:33 PM EDT Patient Name: GONZALO DELUCA ---Special Procedures--- Exam Date/Time 12/19/2019 14:31:06 EDT Exam XA Special Angiography Procedure Ordering Physician ZIYAD MENENDEZ Accession Number [id number] Reason For Exam Mediport placement Report LEFT [...] MALAY Transcribed Date and Time: 12/19/2019 2:32 [facility], [employer] XR CHEST PORTABLEon 12-19-19 Patient Name: GONZALO DELUCA ---Diagnostic Radiology--- Exam Date/Time 12/19/2019 14:50:00 EDT Exam CR Chest Portable Ordering Physician MD GRIFFITH MALAY Accession Number [id number] CPT4 Codes 57861 () Reason For Exam Med Port placement She is in ACS room 12. She can go home after Dr. Griffith ok's the XRay. Please contact him at [phone] when it is available. Thanks Report CLINICAL [...] JEFFREY Transcribed Date and Time: 12/19/2019 3:06 [facility], [place] Real, [facility]coming [facility] - 12/19/2019 3:06 PM EDT Patient Name: GONZALO DELUCA ---Diagnostic Radiology--- Exam Date/Time 12/19/2019 14:50:00 EDT Exam CR Chest Portable Ordering Physician MD GRIFFITH MALAY Accession Number [id number] CPT4 Codes 23055 () Reason For Exam Med Port placement She is in ACS room 12. She can go home after Dr. Suhail rocha's the XRay. Please contact him at [phone] when it is available. Thanks Report CLINICAL [...] JEFFREY Transcribed Date and Time: 12/19/2019 3:06 [place], [place] Basic Metabolic Panel w/ Ref familia to MGon 11-24-2019 Anion gap [Moles/Vol] 4 mmol/L [place] Calcium [Mass/Vol] 8.3 mg/dL Low 8.4 - 10. 4 mg/dL [place] Chloride [Moles/Vol] 102 mmol/L 98 - 10 7 mmol/L [place] CO2 [Moles/Vol] 27 mmol/L 22 - 30 mmol/L [place] Creatinine [Mass/Vol] 0.52 mg/dL 0.52 - 1.25 mg/dL [place] EGFR IF NonAfrican [place] >90.0 >60 mL/min [place] Comment on above: KDIGO guidelines pro [...] MDRD (S/P/Bld) [Vol rate/Area] mL/min/{1.73_m2} >60 mL/min [place] Glucose [Mass/Vol] 84 mg/dL 70 - 100 mg/dL [place] Interpretation and review of laboratory results Abnormal [place] Potassium [Moles/Vol] 3.8 mmol/L 3.5 - 5.1 mmol/L [place] Sodium [Moles/Vol] 133 mmol/L Low 135 - 145 mmol/L [place] Urea nitrogen [Mass/Vol] 8 mg/dL 7 - 20 mg/d L [place] Test Performed by [facility], [address] [place], [place] [address] [place] CBC Auto Differentialon 0 Absolute Baso # 0.0 10*3/uL 0 - 0.2 10*3/uL [place] Absolute Neut # 5.9 10*3/uL 1.8 - 7 10*3/uL [place] Basophils/100 WBC (Bld) 0.5 % 0 - 2 % [place] Eosinophils (Bld) [#/Vol] 0.2 10*3/uL 0 - 0.5 10*3/uL [place] Eosinophils/100 WBC (Bld) 2.6 % 1 - 6 % [place] Erythrocyte distribution width (RBC) [Ratio] 13.8 % 11.5 - 14.5 % [place] Granulocytes/100 WBC (Bld) 78.0 % 40 - 80 % [place] Hematocrit (Bld) [Volume fraction] 31.1 % Low 35 - 47 % [place] Hemoglobin (Bld) [Mass/Vol] 10.0 g/dL Low 11.7 - 16 g/dL [place] Interpretation and review of laboratory results Abnormal [place] Lymphocytes (Bld) [#/Vol] 0.9 10*3/uL Low 1 - 4.3 10*3/uL [place] Lymphocytes/100 WBC (Bld) 12.2 % Low 20 - 40 % [place] MCH (RBC) [Entitic mass] 30.5 pg 26 - 34 pg [place] MCHC (RBC) [Mass/Vol] 32.3 % 32 - 36 % [place] MCV (RBC) [Entitic vol] 94.5 fL 79 - 98 fL [place] Monocytes (Bld) [#/Vol] 0.5 10*3/uL 0 - 0.8 10*3/uL [place] Monocytes/100 WBC (Bld) 6.7 % 2 - 10 % [place], [place] Platelet mean volume (Bld) [Entitic vol] 6.7 fL Low 7.4 - 10.4 fL [place] Platelets (Bld) [#/Vol] 378 10*3/uL 140 - 440 10*3/uL [place] RBC (Bld) [#/Vol] 3.29 10*6/uL Low 3.8 - 5.2 10*6/uL [place] WBC (Bld) [#/Vol] 7.6 10*3/uL 3.6 - 10.7 10*3/uL [place] Test Performed by [employer] [facility], [address], [place], [place] [address] [place], [place] VL DUP CAROTID BILATERALon 0 11-24-2019 Real, [facility] Cardiology Results From Jessika/Anny - 11/24/2019 9:57 AM EDT [facility] ----- Carotid Duplex Report Ordering Physician: Aparna Walter Knife Edger: Alexa De León Interpreting Physician: Austyn Dee MD ----- Location: [facility] ----- Indications: Right arm weakness. ----- Conclusions [...] supine position. Images were obtained using a [employer] E9 vascular ultrasound machine. ----- Findings Carotid/vertebral [...] signed by Austyn Dee MD 11/24/2019 09:57 [facility] ----- Carotid Duplex Report Ordering Physician: Aparna Walter Knife Edger: Alexa De León Interpreting Physician: Austyn Dee MD ----- Location: [facility] ----- Indications: Right arm weakness. ----- Conclusions [...] supine position. Images were obtained using a [employer] E9 vascular ultrasound machine. ----- Findings Carotid/vertebral [...] signed by Austyn Dee MD 11/24/2019 09:57 [place], [place] Basic Metabolic Panel w/ Ref familia to MGon 11-23-2019 Anion gap [Moles/Vol] 3 mmol/L [place], [place] Calcium [Mass/Vol] 8.6 mg/dL 8.4 - 10. 4 mg/dL [place] Chloride [Moles/Vol] 101 mmol/L 98 - 10 7 mmol/L [place] CO2 [Moles/Vol] 31 mmol/L High 22 - 30 mmol/L [place] Creatinine [Mass/Vol] 0.55 mg/dL 0.52 - 1.25 mg/dL [place], [place] EGFR IF NonAfrican [place] >90.0 >60 mL/min [place], [place] Comment on above: KDIGO guidelines pro [...] MDRD (S/P/Bld) [Vol rate/Area] mL/min/{1.73_m2} >60 mL/min [place], [place] Glucose [Mass/Vol] 87 mg/dL 70 - 100 mg/dL [place], [place] Interpretation and review of laboratory results Abnormal [place], [place] Potassium [Moles/Vol] 4.0 mmol/L 3.5 - 5.1 mmol/L [place], [place] Sodium [Moles/Vol] 136 mmol/L 135 - 145 mmol/L [place], [place] Urea nitrogen [Mass/Vol] 12 mg/dL 7 - 20 mg/d L [place] Test Performed by [facility], [address], [place], [place] [address] [place], [place] CBC Auto Differentialon 09-0 -2019 Absolute Baso # 0.0 10*3/uL 0 - 0.2 10*3/uL [place], [place] Absolute Neut # 5.3 10*3/uL 1.8 - 7 10*3/uL [place], [place] Basophils/100 WBC (Bld) 0.6 % 0 - 2 % [place], [place] Eosinophils (Bld) [#/Vol] 0.3 10*3/uL 0 - 0.5 10*3/uL [place], [place] Eosinophils/100 WBC (Bld) 3.6 % 1 - 6 % [place], [place] Erythrocyte distribution width (RBC) [Ratio] 13.7 % 11.5 - 14.5 % [place], [place] Granulocytes/100 WBC (Bld) 73.0 % 40 - 80 % [place], [place] Hematocrit (Bld) [Volume fraction] 30.5 % Low 35 - 47 % [place], [place] Hemoglobin (Bld) [Mass/Vol] 9.9 g/dL Low 11.7 - 16 g/dL [place], [place] Interpretation and review of laboratory results Abnormal [place], [place] Lymphocytes (Bld) [#/Vol] 1.1 10*3/uL 1 - 4.3 10*3/uL [place], [place] Lymphocytes/100 WBC (Bld) 14.8 % Low 20 - 40 % [place], [place] MCH (RBC) [Entitic mass] 30.5 pg 26 - 34 pg [place], [place] MCHC (RBC) [Mass/Vol] 32.3 % 32 - 36 % [place], [place] MCV (RBC) [Entitic vol] 94.3 fL 79 - 98 fL [place], [place] Monocytes (Bld) [#/Vol] 0.6 10*3/uL 0 - 0.8 10*3/uL [facility] [place] Monocytes/100 WBC (Bld) 8.0 % 2 - 10 % [facility], [place] Platelet mean volume (Bld) [Entitic vol] 6.6 fL Low 7.4 - 10.4 fL [facility], [place] Platelets (Bld) [#/Vol] 366 10*3/uL 140 - 440 10*3/uL [facility] [place], [place] RBC (Bld) [#/Vol] 3.24 10*6/uL Low 3.8 - 5.2 10*6/uL [facility], [place] WBC (Bld) [#/Vol] 7.3 10*3/uL 3.6 - 10.7 10*3/uL [facility], ONLE Test Performed by [facility], [address] [place] [id number] [place], [place] [address], ONEL ECHO Complete 2D W Doppler W Coloron 11-23-2019 TRANSTHORACIC ECHOCARDIOGRAM PATIENT: Gonzalo Deluca STUDY DATE: 11/23/2019 : 1955 AGE: 64 HT/WT: 165.1 cm (65 70.8 kg in) (155.7 lb) GENDER: F BP: 124 / 79 LOCATION: [facility] PATIENT [facility] STATUS: *ORDERING PHYSICIAN: * Lauren Serna *RN: * Alea Gomez *READING PHYSICIAN: Haritha Milligan *VICE PRESIDENT CONSULTING SERVICES: Haritha Vital MD RDCS, AE ----- INDICATIONS: [...] Srini Vital MD 11/23/2019 11:59 Prior Signatures: [facility] [place] [facility] [place] Incoming Cardiology Results From [facility] [employer]/Anny - 11/23/2019 11:59 AM EDT TRANSTHORACIC ECHOCARDIOGRAM PATIENT: Gonzalo Deluca STUDY DATE: 11/23/2019 : 1955 AGE: 64 HT/WT: 165.1 cm (65 70.8 kg in) (155.7 lb) GENDER: F BP: 124 / 79 LOCATION: [facility] PATIENT Inpatient [facility] STATUS: *ORDERING PHYSICIAN: Luaren Shirley *RN: * Alea Gomez *READING PHYSICIAN: Haritha Milligan *VICE PRESIDENT CONSULTING SERVICES: Haritha Vital MD [facility], AE ----- INDICATIONS: Right hand [...] Srini Vital MD 11/23/2019 11:59 Prior Signatures: [place], [place] CBCon 11-22-2019 Erythrocyte distribution width (RBC) [Ratio] 13.8 % 11.5 - 14.5 % [place], [place] Hematocrit (Bld) [Volume fraction] 29.9 % Low 35 - 47 % [place], [place] Hemoglobin (Bld) [Mass/Vol] 9.6 g/dL Low 11.7 - 16 g/dL [place], [place] Interpretation and review of laboratory results Abnormal [place], [place] MCH (RBC) [Entitic mass] 30.3 pg 26 - 34 pg [place], [place] MCHC (RBC) [Mass/Vol] 31.9 % Low 32 - 36 % [place], [place] MCV (RBC) [Entitic vol] 94.9 fL 79 - 98 fL [place], [place] Platelet mean volume (Bld) [Entitic vol] 7.2 fL Low 7.4 - 10.4 fL [place], [place] Platelets (Bld) [#/Vol] 380 10*3/uL 140 - 440 10*3/uL [place], [place] RBC (Bld) [#/Vol] 3.15 10*6/uL Low 3.8 - 5.2 10*6/uL [place], [place] WBC (Bld) [#/Vol] 8.9 10*3/uL 3.6 - 10.7 10*3/uL [place], [place] Test Performed by [facility], [address] [place] [address] [place], [place] Comprehensive Metabolic Pane l w/ Reflex to MGon 11-22-2019 Albumin [Mass/Vol] 2.8 g/dL Low 3.5 - 5 g/dL [place], [place] ALP [Catalytic activity/Vol] 77 U/L 38 - 126 U/L [place], [place] ALT [Catalytic activity/Vol] 20 U/L 0 - 34 U/L [place], [place] Comment on above: The ALT test is perf ormed by an updated assay method. Please note that the reference intervals have been changed and are now sex specific. Anion gap [Moles/Vol] 4 mmol/L [place], [place] AST [Catalytic activity/Vol] 52 U/L High 15 - 46 U/L [place], [place] Bilirubin Ql (U) 0.2 mg/dL 0.2 - 1.3 mg/dL [place], [place] Calcium [Mass/Vol] 8.3 mg/dL Low 8.4 - 10. 4 mg/dL [place], [place] Chloride [Moles/Vol] 103 mmol/L 98 - 10 7 mmol/L [place], [place] CO2 [Moles/Vol] 33 mmol/L High 22 - 30 mmol/L [place], [place] Creatinine [Mass/Vol] 0.54 mg/dL 0.52 - 1.25 mg/dL [place], [place] EGFR IF NonAfrican [place] >90.0 >60 mL/min [place], [place] Comment on above: KDIGO guidelines pro [...] MDRD (S/P/Bld) [Vol rate/Area] mL/min/{1.73_m2} >60 mL/min [place], [place] Glucose [Mass/Vol] 99 mg/dL 70 - 100 mg/dL [place], [place] Interpretation and review of laboratory results Abnormal [place], [place] Potassium [Moles/Vol] 3.1 mmol/L Low 3.5 - 5.1 mmol/L [place], [place] Protein [Mass/Vol] 5.4 g/dL Low 6.3 - 8.2 g/dL [place], [place] Sodium [Moles/Vol] 140 mmol/L 135 - 145 mmol/L [place], [place] Urea nitrogen [Mass/Vol] 11 mg/dL 7 - 20 mg/d L [place], [place] EKG 12 Lead if not already d one by divya 11-22-2019 [facility] Results From [facility] - 11/22/2019 12:02 PM EDT [facility] Test Date: 2019-11-21 Pat Name: Gonzalo Deluca Department: 01 Room: 454 Gender: F Currency Exchange Specialist: RACHEL : 1955 Requested By: RAY BARROSO Order Number: [id number] Reading MD: Vicente Brown Measurements Intervals [place] Rate: 89 P: 42 ND: 152 QRS: -20 QRSD: 100 T: 18 QT: 376 QTc: 458 Interpretive Statements SINUS RHYTHM Compared to ECG 08/02/2019 18:19:40 Ventricular premature complex(es) no longer present Electronically Signed On 11-22-2019 12:01:36 EDT by Vicente Brown [facility] Test Date: 2019-11-21 Pat Name: Gonzalo Deluca Department: 01 Room: 454 Gender: F Currency Exchange Specialist: RACHEL : 1955 Requested By: RAY BARROSO Order Number: [id number] Reading : Vicente Brown Measurements Intervals [place] Rate: 89 P: 42 ND: 152 QRS: -20 QRSD: 100 T: 18 QT: 376 QTc: 458 Interpretive Statements SINUS RHYTHM Compared to ECG 08/02/2019 18:19:40 Ventricular premature complex(es) no longer present Electronically Signed On 11-22-2019 12:01:36 EDT by Vicente Brown [place], [place] Hemoglobin A1con 11-22-2019 eAG 100 mg/dL [place], [place] HbA1c (Bld) [Mass fraction] 5.1 % 4 - 6 % [place], [place] Comment on above: --HgbA1C levels may not be accurate in patients who have renal disease, received recent blood transfusions, are anemic, or who have dyshemoglobinemia. Test Performed by [facility] Variable [facility], [address] [place], [address] Lipid panel - fastingon Cholesterol [Mass/Vol] 132 mg/dL <200 [place], [place] Cholesterol in HDL [Mass/Vol] 41 mg/dL 40 - 60 mg/dL [place], [place] Cholesterol in LDL [Mass/Vol] 68 mg/dL <100 [place], [place] Cholesterol.total/Choles terol in HDL [Mass ratio] 3 {ratio} [place], [place] Comment on above: Ref Range: < 3 Low Risk for CHD 3-6 Mod Risk for CHD > 6 High Risk for CHD Triglyceride [Mass/Vol] 116 mg/dL <150 [place], [place] Magnesiumon 11-22-2019 Magnesium [Mass/Vol] 1.9 mg/dL 1.6 - 2 .3 mg/dL [place], [place] Test Performed by [facility], [address], [address] Otheron 11-22-2019 Test Performed by [facility], [address] [place], [address] VL LOWER EXTREMITY VENOUS RI GHT [id number] 11-22-2019 [facility] ----- Right Lower Extremity Venous Duplex Report Ordering Physician: Lauren Serna Knife Edger: Eh Rojas Interpreting Physician: Josef Cochran ----- Location: [facility] ----- Indications: Right sided swelling. ----- Conclusions [...] supine position. Images were obtained using a [employer] E9 vascular ultrasound machine. ----- Venous flow [...] electronically signed by Josef Cochran 11/22/2019 14:37 [place], [place] Incoming Cardiology Results From [facility]/Anny - 11/22/2019 2:37 PM EDT [facility] ----- Right Lower Extremity Venous Duplex Report Ordering Physician: Lauren Serna Knife Edger: Eh Rojas Interpreting Physician: Josef Cochran ----- Location: [facility] ----- Indications: Right sided swelling. ----- Conclusions [...] supine position. Images were obtained using a [employer] E9 vascular ultrasound machine. ----- Venous flow [...] electronically signed by Josef Cochran 11/22/2019 14:37 [place], [place] APTTon 11-21-2019 aPTT Coag (Bld) [Time] 23.6 s 20 - 30.5 s [place], [place] Comment on above: NOTE: The therapeuti c time for Heparin anticoagulation, based on Xa activity inhibition, is an APTT of 46-80 seconds. CBC Auto Differentialon Absolute Baso # 0.1 10*3/uL 0 - 0.2 10*3/uL [place], [place] Absolute Neut # 4.8 10*3/uL 1.8 - 7 10*3/uL [place], [place] Basophils/100 WBC (Bld) 0.7 % 0 - 2 % [place] Eosinophils (Bld) [#/Vol] 0.3 10*3/uL 0 - 0.5 10*3/uL [place], [place] Eosinophils/100 WBC (Bld) 3.7 % 1 - 6 % [place], [place] Erythrocyte distribution width (RBC) [Ratio] 14.0 % 11.5 - 14.5 % [place], [place] Granulocytes/100 WBC (Bld) 71.5 % 40 - 80 % [place], [place] Hematocrit (Bld) [Volume fraction] 34.5 % Low 35 - 47 % [place], [place] Hemoglobin (Bld) [Mass/Vol] 11.0 g/dL Low 11.7 - 16 g/dL [place], [place] Interpretation and review of laboratory results Abnormal [place], [place] Lymphocytes (Bld) [#/Vol] 1.1 10*3/uL 1 - 4.3 10*3/uL [place], [place] Lymphocytes/100 WBC (Bld) 16.9 % Low 20 - 40 % [place], [place] MCH (RBC) [Entitic mass] 30.4 pg 26 - 34 pg [place], [place] MCHC (RBC) [Mass/Vol] 32.0 % 32 - 36 % [place], [place] MCV (RBC) [Entitic vol] 95.1 fL 79 - 98 fL [place], [place] Monocytes (Bld) [#/Vol] 0.5 10*3/uL 0 - 0.8 10*3/uL [place], [place] Monocytes/100 WBC (Bld) 7.2 % 2 - 10 % [place], [place] Platelet mean volume (Bld) [Entitic vol] 6.7 fL Low 7.4 - 10.4 fL [place], [place] Platelets (Bld) [#/Vol] 438 10*3/uL 140 - 440 10*3/uL [place], [place] RBC (Bld) [#/Vol] 3.63 10*6/uL Low 3.8 - 5.2 10*6/uL [place], [place] WBC (Bld) [#/Vol] 6.8 10*3/uL 3.6 - 10.7 10*3/uL [place], [place] Test Performed by [facility], [address] [place], [place], [place] [address] [place], [place] HEAD WO CONTRASTon 2019 Patient Name: GONZALO DELUCA ---CT--- Exam Date/Time 11/21/2019 16:56:[address] Head or Brain w/o Contrast Ordering Physician RAY ALLEN Accession Number [id number] CPT4 Codes 37437 () Reason For Exam right arm weakness [...] WENDELL Transcribed Date and Time: 11/21/2019 5:09 [place], [place] Real, [facility] Incoming Radiology Results From [employer] - 11/21/2019 5:09 PM EDT Patient Name: GONZALO DELUCA ---CT--- Exam Date/Time 11/21/2019 16:56:[address] Head or Brain w/o Contrast Ordering Physician [id number] -RIK BARROSOS Accession Number [id number] CPT4 Codes 88783 () Reason For Exam right arm weakness [...] WENDELL Transcribed Date and Time: 11/21/2019 5:09 [place], [place] Comprehensive Metabolic Pane l w/ Reflex to MGon 11-21-2019 Albumin [Mass/Vol] 3.3 g/dL Low 3.5 - 5 g/dL [place], [place] ALP [Catalytic activity/Vol] 96 U/L 38 - 126 U/L [place], [place] ALT [Catalytic activity/Vol] 23 U/L 0 - 34 U/L [place], [place] Comment on above: The ALT test is perf ormed by an updated assay method. Please note that the reference intervals have been changed and are now sex specific. Anion gap [Moles/Vol] 4 mmol/L [place], [place] AST [Catalytic activity/Vol] 37 U/L 15 - 46 U/L [place], [place] Bilirubin Ql (U) 0.1 mg/dL Low 0.2 - 1.3 mg/dL [place], [place] Calcium [Mass/Vol] 9.1 mg/dL 8.4 - 10. 4 mg/dL [place], [place] Chloride [Moles/Vol] 100 mmol/L 98 - 10 7 mmol/L [place], [place] CO2 [Moles/Vol] 37 mmol/L High 22 - 30 mmol/L [place], [place] Creatinine [Mass/Vol] 0.66 mg/dL 0.52 - 1.25 mg/dL [place], [place] EGFR IF NonAfrican [place] >90.0 >60 mL/min [place], [place] Comment on above: KDIGO guidelines pro [...] MDRD (S/P/Bld) [Vol rate/Area] mL/min/{1.73_m2} >60 mL/min [place], [place] Glucose [Mass/Vol] 93 mg/dL 70 - 100 mg/dL [place], [place] Interpretation and review of laboratory results Abnormal [place], [place] Potassium [Moles/Vol] 3.4 mmol/L Low 3.5 - 5.1 mmol/L [place], [place] Protein [Mass/Vol] 6.3 g/dL 6.3 - 8.2 g/dL [place], [place] Sodium [Moles/Vol] 141 mmol/L 135 - 145 mmol/L [place], [place] Urea nitrogen [Mass/Vol] 12 mg/dL 7 - 20 mg/d L [place], [place] Test Performed by [facility], [address] [place], [place], [place] [id number] [place] [address] Magnesiumon 11-21-2019 Magnesium [Mass/Vol] 2.0 mg/dL 1.6 - 2 .3 mg/dL [place], [place] Test Performed by [facility], [address], [address] Otheron 11-21-2019 Test Performed by [facility], [address] [place], [address] POCT Glucoseon 11-21-2019 Glucose [Mass/Vol] 94 mg/dL 70 - 100 mg/dL [place], [place] Comment on above: Test performed by [employer] ucose meter. Results may be 10%-15% lower than serum/plasma values. (CLIA ID [id number]) Test Performed by [facility], [address] [place], [address] Protime-INRon 11-21-2019 INR Coag (PPP) [Relative time] 1.0 {INR} [place], [place] Comment on above: Recommended Anticoag ulant [...] [Time] 10.1 s 9 - 12 s [place], [place] Comment on above: . Troponinon 11-21-2019 Troponin I.cardiac [Mass/Vol] ng/mL 0 - 0.034 ng/mL [place], [place] Comment on above: . Test Performed by [facility], [address] [place] [address] [id number] 11-13-2019 SARS-CoV-2 SARS-CoV-2 --> Statu s: F Not Detected Expected Result: Not Detected _ Real-time, RT-PCR performed on the [employer] System by the [facility]. Negative results do not preclude SARS-CoV-2 infection and should not be used as the sole basis for treatment or other patient management decisions. This assay was developed by [employer] and distributed under an Emergency Use Authorization (EUA) granted by the FDA for the qualitative detection of SARS-CoV-2 nucleic acid. Results were determined from a pool consisting of specimens from additional patients. This test was modified, and its performance characteristics, showing minimal loss of sensitivity, have been validated by the [facility]. Approval is pending review by the U. S. Food and Drug Administration. If symptoms are severe and persist, testing a new specimen may be warranted. Additionally, IgG testing may be considered for patients more than 7-10 days post onset of symptoms. Expected Result: Not Detected _ Real-time, RT-PCR performed on the [employer] System by the [facility] Service. Negative results do not preclude SARS-CoV-2 infection and should not be used as the sole basis for treatment or other patient management decisions. This assay was developed by [employer] and distributed under an Emergency Use Authorization (EUA) granted by the FDA for the qualitative detection of SARS-CoV-2 nucleic acid. Results were determined from a pool consisting of specimens from additional patients. This test was modified, and its performance characteristics, showing minimal loss of sensitivity, have been validated by the [facility]. Approval is pending review by the U. S. Food and Drug Administration. If symptoms are severe and persist, testing a new specimen may be warranted. Additionally, IgG testing may be considered for patients more than 7-10 days post onset of symptoms. Normal [facility] Comment on above: Order Comment: Speci men Source Comment:Nasopharyngeal Swab Performed By: #### C OVID ####[facility] [place], [place] Basic Metabolic Panelon 08-2 Calcium [Mass/Vol] 9.2 mg/dL Normal 8.4-10.4 [facility] Comment on above: Performed By: #### B MP3, HEMDF #### [facility] [address] [place], [place] Glucose [Mass/Vol] 120 mg/dL High 70-100 [facility] Comment on above: Performed By: #### B MP3, HEMDF #### [facility] [address] [place], [place] Urea nitrogen [Mass/Vol] 9 mg/dL Normal 7-20 [facility] Comment on above: Performed By: #### B MP3, HEMDF #### [facility] [address] [place], [place] Anion gap [Moles/Vol] 7 Normal [facility] Comment on above: Performed By: #### B MP3, HEMDF #### [facility] [address] [place], [place] CO2 [Moles/Vol] 31 mmol/L High 22-30 [facility] Comment on above: Performed By: #### B MP3, HEMDF #### [facility] [address] [place], [place] Creatinine [Mass/Vol] 0.49 mg/dL Low 0.52-1.25 [facility] Comment on above: Performed By: #### B MP3, HEMDF #### [facility] [address] [place], [place] GFR/1.73 sq M predicted among blacks MDRD (S/P/Bld) [Vol rate/Area] mL/min/{1.73_m2} Normal >60 [facility] Comment on above: Performed By: #### B MP3, HEMDF #### [facility] [address] [place], [place] GFR/1.73 sq M predicted among non-blacks MDRD (S/P/Bld) [Vol rate/Area] mL/min/{1.73_m2} Normal >60 [facility] Comment on above: Result Comment: KDIG O [...] Performed By: #### B MP3, HEMDF #### [facility] [address] [place] [address] Potassium [Moles/Vol] 2.9 mmol/L Low 3.5-5.1 [facility] Comment on above: Performed By: #### B MP3, HEMDF #### [facility] [address] [place] [address] Chloride [Moles/Vol] 103 mmol/L Normal 98-107 [facility] Comment on above: Performed By: #### B MP3, HEMDF #### [facility] [address] [place] [address] Sodium [Moles/Vol] 140 mmol/L Normal 135-145 [facility] Comment on above: Performed By: #### B MP3, HEMDF #### [facility] [address] [place] [address] CR Chest Portableon 11-12-19 20 CR Chest Portable Patient Name: GONZALO DELUCA Diagnostic Radiology Exam Date/Time 11/12/2019 20:13:01 EDT Exam CR Chest Portable Ordering Physician NADEEM CASEY JENNIFER L. Accession Number [id number] CPT4 Codes 25960 () Reason For Exam cough and fever [...] Transcribed Date and Time: 11/12/2019 8:15 Normal [facility] Hemogram w/ Autodiffon 11-11 Abs Baso Cnt 0.1 10*3/uL Normal 0.0-0.2 [facility] Comment on above: Performed By: #### B MP3, HEMDF #### [facility] [address] [place], [place] Abs Neutrophile Cnt 12.0 10*3/uL High 1.8-7.0 [facility] Comment on above: Performed By: #### B MP3, HEMDF #### [facility] [address] [place], [place] Basophils/100 WBC (Bld) 0.4 % Normal 0.0-2.0 [facility] Comment on above: Performed By: #### B MP3, HEMDF #### [place] [address] [address] [place], [place] Eosinophils (Bld) [#/Vol] 0.2 10*3/uL Normal 0.0-0.5 [facility] Comment on above: Performed By: #### B MP3, HEMDF #### [facility] [address] [place], [place] Eosinophils/100 WBC (Bld) 1.6 % Normal 1.0-6.0 [facility] Comment on above: Performed By: #### B MP3, HEMDF #### [facility] [address] [place], [place] Erythrocyte distribution width (RBC) [Ratio] 14.2 % Normal 11.5-14.5 [facility] Comment on above: Performed By: #### B MP3, HEMDF #### [facility] [address] [place], [place] Granulocytes/100 WBC (Bld) 81.3 % High 40.0-80.0 [facility] Comment on above: Performed By: #### B MP3, HEMDF #### [facility] [address] [place], [place] Hematocrit (Bld) [Volume fraction] 38.0 % Normal 35.0-47.0 [facility] Comment on above: Performed By: #### B MP3, HEMDF #### [place] [address] [address] [place], [place] Hemoglobin (Bld) [Mass/Vol] 12.9 g/dL Normal 11.7-16.0 [facility] Comment on above: Performed By: #### B MP3, HEMDF #### [place] [address] [address] [place], [place] Lymphocytes (Bld) [#/Vol] 1.4 10*3/uL Normal 1.0-4.3 [facility] Comment on above: Performed By: #### B MP3, HEMDF #### [place] [address] [place], [place] Lymphocytes/100 WBC (Bld) 9.3 % Low 20.0-40.0 [facility] Comment on above: Performed By: #### B MP3, HEMDF #### [place] [address] [address] [place], [place] MCH (RBC) [Entitic mass] 32.0 pg Normal 26.0-34.0 [facility] Comment on above: Performed By: #### B MP3, HEMDF #### [place] [address] [address] [place], [place] MCHC (RBC) [Mass/Vol] 34.0 % Normal 32.0-36.0 [facility] Comment on above: Performed By: #### B MP3, HEMDF #### [place] [address] [address] [place], [place] MCV (RBC) [Entitic vol] 94.1 fL Normal 79.0-98.0 [facility] Comment on above: Performed By: #### B MP3, HEMDF #### [place] [address] [place], [place] Monocytes (Bld) [#/Vol] 1.1 10*3/uL High 0.0-0.8 [facility] Comment on above: Performed By: #### B MP3, HEMDF #### [place] [address] [address] [place], [place] Monocytes/100 WBC (Bld) 7.4 % Normal 2.0-10.0 [facility] Comment on above: Performed By: #### B MP3, HEMDF #### [facility] [address] [place], [place] Platelet mean volume (Bld) [Entitic vol] 6.8 fL Low 7.4-10.4 [facility] Comment on above: Performed By: #### B MP3, HEMDF #### [facility] [address] [place], [place] Platelets (Bld) [#/Vol] 526 10*3/uL High 140-440 [facility] Comment on above: Performed By: #### B MP3, HEMDF #### [facility] [address] [place], [place] RBC (Bld) [#/Vol] 4.03 10*6/uL Normal 3.80-5.20 [facility] Comment on above: Performed By: #### B MP3, HEMDF #### [facility] [address] [place], [place] WBC (Bld) [#/Vol] 14.8 10*3/uL High 3.6-10.7 [facility] Comment on above: Performed By: #### B MP3, HEMDF #### [facility] [address] [place], [place] VL Venous Duplex US Lower Ex t Righton 11-10-2019 VL Venous Duplex US Lower Ext Right Patient Name: GONZALO DELUCA Ultrasound Exam Date/Time 11/10/2019 18:25:00 EDT Exam VL Venous Duplex US Lower Ext Right Ordering Physician TANI RADFORD Accession Number [id number] CPT4 Codes 93842 () Reason For Exam Other specified soft tissue disorders Report [facility] ----- Right Lower Extremity Venous Duplex Report Ordering Physician: Tani Joseph Knife Edger: Luda Alonso Interpreting Physician: Ramses Mcgrath MD ----- Location: [facility] Emergency Dept at [place] ----- Indications: Leg swelling. Pt s/p hysterectomy [...] supine position. Images were obtained using a [employer] i700 Aplio vascular ultrasound machine. ----- Venous [...] 11/12/2019 8:11 am Signed by: RAMSES MCGRATH [facility] Op Noteon 11-06-2019 Op Note PATIENT: MAHAMED DELUCA ADMISSION DATE: 11/06/2019 SURGERY DATE: 11/06/2019 DATE OF : 1955 AGE: 63 ADMITTING PHYSICIAN: Ziyad Menendez MD ATTENDING PHYSICIAN: Ziyad Menendez MD DICTATING PHYSICIAN: Ziyad Menendez MD OPERATIVE RECORD Procedure: ABDOMINAL RADICAL HYSTERECTOMY WITH BSO AND PELVIC LYMPH NODE DISSECTION. Preoperative Diagnosis: Cervical cancer stage IB2. Postoperative Diagnosis: Cervical cancer stage IB2. Anesthesia: General. Precision Dyer : Dr. Beth. Description of Findings: No [...] cuff was closed using interrupted 0 Vicryl [id number]. The abdomen and pelvis was then copiously [...] EBL about 250 cc. Diskriter Job ID: [id number] Ziyad Menendez MD DOD:11/06/2019 10:13 A /geraldine DOT:11/06/2019 10:45 A Job Number: [id number] Document Number: [id number] cc: Ziyad Menendez MD [address] [facility] [address] Angle Case MD [id number] [place] [address] Surgical Pathologyon 020 Surgical Pathology [id number] [facility] DEPARTMENT OF [facility] PATHOLOGY AND LABORATORY MEDICINE [address] [place], [place] [id number] FINAL SURGICAL PATHOLOGY REPORT NAME: GONZALO DELUCA Barrington N [id number] : 1955 63 Y F BILLING NO.: [id number] LOCATION: [address] [place] [address] PROCEDURE 11/06/2019 DATE: SURGEON: ZIYAD MENENDEZ MD [...] (pN): pN1 FIGO STAGE FIGO Stage: IIIC1 DINING ROOM ATTENDANT TUMOR BLOCK(S): A2, A3 HCK/HCK Signature> ANSLEY [...] No papillations or excrescences are identified. Multiple sales representative printing supplies sections are submitted. The left fallopian tube [...] masses or lesions are grossly identified. Multiple sales representative printing supplies sections are submitted. Cassette Summary: 1 - 4 is ectocervix with vaginal cuff margin from 6 o'clock to 9 o'clock, entirely submitted; 5 is sales representative printing supplies 9 o'clock to 12 o'clock; 6 - 8 is 3 o'clock to 6 o'clock, entirely submitted; 9 is sales representative printing supplies 12 o'clock to 3 o'clock; 10 is [...] lower uterine segment; 20 and 21 is sales representative printing supplies right parametrium; 22 is sales representative printing supplies left parametrium; 23 is left ovary; 24 [...] from the specimen is submitted into 13. S/[facility] Disclaimer: The following statement applies to all immunohistochemistry, in situ hybridization, molecular studies, and immunofluorescence testing. The use of one or more reagents in the above tests is regulated as an analyte specific reagent (ASR). These tests were developed and their performance characteristics determined by the clinical laboratories of [facility]. They have not been cleared by the [...] negativity on decalcified specimens. Professional Performing Location: [facility] [address] [place] [address]. DEPARTMENT OF PATHOLOGY AND LABORATORY MEDICINE [place], [place] [address] Normal [facility] TS GELon 11-05-2019 TS GEL ABO Group: A Rh, Gel: POS Antibody Screen Gel: NEG Normal [facility] Comment on above: Performed By: #### T SGL ####[place] [address], [place] [address]Qfitp[facility] TYPE AND SCREENon 11-05-2019 Sodium [Moles/Vol] A [facility] [place], [place] Sodium [Moles/Vol] Positive [facility] [place] Sodium [Moles/Vol] Negative [facility] [place] Test Performed by [facility], [address] [place] [address] [facility] [place] CNPNon 10-31-2019 CNPN Telephone (MOLEFV) GONZALO DELUCA ([id number]) 1955 F Date Time Provider Department 10/31/19 [...] Encounter Status:Closed by AMELIE ZAYAS on 10/31/19 [facility] PROGRESSon 10-31-2019 PROGRESS HNO ID: [id number] Author: Ankit Cook Service: ? Author Type: [...] stains were performed and evaluated at the [facility] using block B1. 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 ?P53 shows wild type expression. ?ER shows moderate expression in 30% of tumor cells. ?ND is negative. ?An RNA in situ hybridization [...] days 11/06/19 radical ARIANA-BSO-LND (Dr Ziyad Menendez, [facility]) 11/09/19 ED Visit (OSH) MRI not [...] yo T1b1 N1a SCC cervix Staged at [facility] 11/06/2019 Hx COPD, 3L suppl O2 at home Possible TIA 07/2019 CAD abd stress 2017; possible NSTEMI 2017 (per pt) Mother berast CA Sister breast CA Maral jacobs 10/21/[address] notable for old T5 compressions fx PLAN: MRI and PET CT completed at [facility] S/p staging surgery w Dr. Menendez 11/06/201904/01 Pelvic nodes positive, Ao nodes not sampled 10mm stromal invasion Planned for adjuvant chemoRT at [facility] Ankit Cook MD 5min spent counseling the pateint by telephone Normal [facility] Basic Metabolic Panelon 08-0 Anion gap [Moles/Vol] 6 mmol/L [place], [place] Calcium [Mass/Vol] 9.7 mg/dL 8.4 - 10. 4 mg/dL [place] Chloride [Moles/Vol] 102 mmol/L 98 - 10 7 mmol/L [place] CO2 [Moles/Vol] 32 mmol/L High 22 - 30 mmol/L [place] Creatinine [Mass/Vol] 0.57 mg/dL 0.52 - 1.25 mg/dL [place] EGFR IF NonAfrican [place]an >90.0 >60 mL/min [place] Comment on above: KDIGO guidelines pro [...] serum creatinine in children is the Bedside Vazuqez equation. It is less accurate in patients with extremes of muscle mass, restriction of dietary protein, ingestion of creatine, extra-renal metabolism of creatinine, or treatment with medications that affect renal tubular creatinine secretion. GFR/1.73 sq M predicted among blacks MDRD (S/P/Bld) [Vol rate/Area] mL/min/{1.73_m2} >60 mL/min [place] Glucose [Mass/Vol] 111 mg/dL High 70 - 100 mg/dL [place] Potassium [Moles/Vol] 4.1 mmol/L 3.5 - 5.1 mmol/L [place] Sodium [Moles/Vol] 140 mmol/L 135 - 145 mmol/L [place], [place] Urea nitrogen [Mass/Vol] 20 mg/dL 7 - 20 mg/d L [place] ABDOMEN PELVIS W CONTRAST on 10-27-2019 [facility] 10/27/2019 5:10 PM EDT Patient Name: GONZALO DELUCA ---CT--- Exam Date/Time 10/27/2019 16:53:[address] Abdomen/Pelvis w/ IV Contrast (IV Onl Ordering Physician MD JAMIE, ANKIT French Accession Number [id number] CPT4 Codes 59705 (CT Abdomen/Pelvis w/ IV Contrast (IV Onl), Q9967 (CT ISOVUE 370MG/ML&[id number]&M L&1) Reason For Exam RUQ/RIGHT flank pain, [...] R Transcribed Date and Time: 10/27/2019 5:09 [place] Patient Name: GONZALO DELUCA ---CT--- Exam Date/Time 10/27/2019 16:53:[address] Abdomen/Pelvis w/ IV Contrast (IV Onl Ordering Physician MD JAMIE, ANKIT French Accession Number [id number] CPT4 Codes 78242 (CT Abdomen/Pelvis w/ IV Contrast (IV Onl), Q9967 (CT ISOVUE 370MG/ML&[id number]&M L&1) Reason For Exam RUQ/RIGHT flank pain, [...] R Transcribed Date and Time: 10/27/2019 5:09 [place], [place] Hemogram (CBC) w/Auto Diffon 10-27-2019 Absolute Baso # 0.1 10*3/uL 0 - 0.2 10*3/uL [place], [place] Absolute Neut # 9.8 10*3/uL High 1.8 - 7 10*3/uL [place], [place] Basophils/100 WBC (Bld) 0.4 % 0 - 2 % [place] Eosinophils (Bld) [#/Vol] 0.5 10*3/uL 0 - 0.5 10*3/uL [place] Eosinophils/100 WBC (Bld) 4.0 % 1 - 6 % [place] Erythrocyte distribution width (RBC) [Ratio] 14.4 % 11.5 - 14.5 % [place] Granulocytes/100 WBC (Bld) 76.6 % 40 - 80 % [place] Hematocrit (Bld) [Volume fraction] 41.9 % 35 - 47 % [place] Hemoglobin (Bld) [Mass/Vol] 13.7 g/dL 11.7 - 16 g/dL [place] Lymphocytes (Bld) [#/Vol] 1.5 10*3/uL 1 - 4.3 10*3/uL [place] Lymphocytes/100 WBC (Bld) 12.1 % Low 20 - 40 % [place] MCH (RBC) [Entitic mass] 30.3 pg 26 - 34 pg [place] MCHC (RBC) [Mass/Vol] 32.6 % 32 - 36 % [place] MCV (RBC) [Entitic vol] 93.1 fL 79 - 98 fL [place] Monocytes (Bld) [#/Vol] 0.9 10*3/uL High 0 - 0.8 10*3/uL [place], [place] Monocytes/100 WBC (Bld) 6.9 % 2 - 10 % [place] Platelet mean volume (Bld) [Entitic vol] 7.1 fL Low 7.4 - 10.4 fL [place], [place] Platelets (Bld) [#/Vol] 413 10*3/uL 140 - 440 10*3/uL [place] RBC (Bld) [#/Vol] 4.50 10*6/uL 3.8 - 5.2 10*6/uL [place] WBC (Bld) [#/Vol] 12.8 10*3/uL High 3.6 - 10.7 10*3/uL [place] Hepatic Function Panelon Albumin [Mass/Vol] 4.2 g/dL 3.5 - 5 g/dL [place] ALP [Catalytic activity/Vol] 116 U/L 38 - 126 U/L [place], [place] ALT [Catalytic activity/Vol] 42 U/L High 0 - 34 U/L [place] Comment on above: The ALT test is perf ormed by an updated assay method. Please note that the reference intervals have been changed and are now sex specific. AST [Catalytic activity/Vol] 47 U/L High 15 - 46 U/L [place], [place] Bilirubin Ql (U) 0.4 mg/dL 0.2 - 1.3 mg/dL [place] Bilirubin.direct [Mass/Vol] 0.0 mg/dL 0 - 0.3 mg/dL [place] Protein [Mass/Vol] 7.5 g/dL 6.3 - 8.2 g/dL [place] Lipaseon 10-27-2019 Lipase [Catalytic activity/Vol] 72 U/L 23 - 300 U/L [place], [place] Otheron 10-27-2019 Interpretation and review of laboratory results Abnormal [place] Test Performed by [facility], [address] [place], [place] [address] [place] [address] CT LUMBAR SPINE WO CONTRASTo n 10-21-2019 Patient Name: GONZALO DELUCA ---CT--- Exam Date/Time 10/21/2019 21:54:[address] Spine Lumbar w/o Contrast Ordering Physician DO OTTO DAVID J Accession Number [id number] CPT4 Codes 75642 () Reason For Exam Acute onset T [...] WENDELL Transcribed Date and Time: 10/21/2019 10:26 [facility] [place] [place] Real, [facility] Incoming Radiology Results From [facility] - 10/21/2019 10:26 PM EDT Patient Name: GONZALO DELUCA ---CT--- Exam Date/Time 10/21/2019 21:54:[address] Spine Lumbar w/o Contrast Ordering Physician DO OTTO DAVID J Accession Number [id number] CPT4 Codes 58831 () Reason For Exam Acute onset T [...] WENDELL Transcribed Date and Time: 10/21/2019 10:26 [place] CT THORACIC SPINE WO CONTRRADHA [place] 10-21-2019 Patient Name: GONZALO DELUCA ---CT--- Exam Date/Time 10/21/2019 20:45:[address] Spine Thoracic w/o Contrast Ordering Physician DO OTTO DAVID J Accession Number [id number] CPT4 Codes 80795 () Reason For Exam Acute onset T [...] WENDELL Transcribed Date and Time: 10/21/2019 10:26 [facility] [place] [facility], [place] Real, [facility] Incoming Radiology Results From [facility] - 10/21/2019 10:26 PM EDT Patient Name: GONZALO DELUCA ---CT--- Exam Date/Time 10/21/2019 20:45:[address] Spine Thoracic w/o Contrast Ordering Physician DO OTTO DAVID J Accession Number [id number] CPT4 Codes 56199 () Reason For Exam Acute onset T [...] WENDELL Transcribed Date and Time: 10/21/2019 10:26 [place] PROGRESSon 10-19-2019 PROGRESS HNO ID: [id number] Author: Ankit Cook Service: ? Author Type: Physician Type: Progress Notes Filed: 10/23/2019 3:58 PM Note Text: TELEVISIT PROGRESS NOTE This is a telephone encounter initiated for an established patient, parent or guardian not leading to an Evaluation AND Management service or procedure within the next 24 hours or soonest available appointment. Patient name and birthday verified: Yes [facility] Persons Present: patient PROBLEM: Presents for results [...] stains were performed and evaluated at the [facility] using block B1. 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 ?P53 shows wild type expression. ?ER shows moderate expression in 30% of tumor cells. ?ND is negative. ?An RNA in situ hybridization [...] 9min spent counseling the patient by telephone. [facility] ALLIED [facility] 09-27-2019 ALLIED HEALTH HNO ID: [id number] Author: ALIYA Choi (Ct) Service: Radiology Author Type: Clinical Currency Exchange Specialist Type: Allied Health Filed: 09/27/2019 9:15 AM [...] ALIYA Choi September 27, 2019 9:14 AM [facility] US FEMALE PELVIS TRANSABD LT Don 09-27-2019 US FEMALE PELVIS TRANSABD LTD * * *Final Report* * * DATE OF EXAM: Sep 27 2019 8:58AM MARCO 1059 - US FEMALE PELVIS TRANSABD LTD / PROCEDURE REASON: N95.9-Bdwm-chnteajbwl bleeding * * * * Physician Interpretation [...] uterine segment. Pelvic MRI may be helpful. [employer] Sales Consultant: ANGEL Transcribe Date/Time: Sep 27 2019 5:07P Dictated by : SAAD ESQUIVEL MD This examination was interpreted and the report reviewed and electronically signed by: SAAD ESQUIVEL MD on Sep 27 2019 5:14PM EST [id number] [facility] FEMALE PELVIS TRANSVAGon 09-27-2019 US FEMALE PELVIS TRANSVAG * * *Final Report* * * DATE OF EXAM: Sep 27 2019 8:58AM U 1060 - US FEMALE PELVIS TRANSVAG / PROCEDURE REASON: N95.3-Vydv-alhvznmcur bleeding * * * * Physician Interpretation [...] uterine segment. Pelvic MRI may be helpful. [employer] Sales Consultant: ANGEL Transcribe Date/Time: Sep 27 2019 5:07P Dictated by : SAAD ESQUIVEL MD This examination was interpreted and the report reviewed and electronically signed by: SAAD ESQUIVEL MD on Sep 27 2019 5:14PM EST [id number] Normal [facility] Basic Metabolic Panelon 05- Anion gap [Moles/Vol] 8 mmol/L [place], [place] Calcium [Mass/Vol] 8.7 mg/dL 8.4 - 10. 4 mg/dL [place], [place] Chloride [Moles/Vol] 105 mmol/L 98 - 10 7 mmol/L [place] CO2 [Moles/Vol] 26 mmol/L 22 - 30 mmol/L [place] Creatinine [Mass/Vol] 0.5 mg/dL Low 0.52 - 1.25 mg/dL [place], [place] EGFR IF NonAfrican [place] >90.0 >60 mL/min [place], [place] Comment on above: KDIGO guidelines pro [...] MDRD (S/P/Bld) [Vol rate/Area] mL/min/{1.73_m2} >60 mL/min [place], [place] Glucose [Mass/Vol] 145 mg/dL High 70 - 100 mg/dL [place], [place] Interpretation and review of laboratory results Abnormal [place] Potassium [Moles/Vol] 4.0 mmol/L 3.5 - 5.1 mmol/L [place] Sodium [Moles/Vol] 139 mmol/L 135 - 145 mmol/L [place] Urea nitrogen [Mass/Vol] 17 mg/dL 7 - 20 mg/d L [place] Test Performed by [facility], [address], [place] [address] [place] [address] CBC Auto Differentialon 05-1 Absolute Baso # 0.0 10*3/uL 0 - 0.2 10*3/uL [place], [place] Absolute Neut # 13.6 10*3/uL High 1.8 - 7 10*3/uL [place], [place] Basophils/100 WBC (Bld) 0.2 % 0 - 2 % [place] Eosinophils (Bld) [#/Vol] 0.0 10*3/uL 0 - 0.5 10*3/uL [place], [place] Eosinophils/100 WBC (Bld) 0.0 % Low 1 - 6 % [place] Erythrocyte distribution width (RBC) [Ratio] 13.8 % 11.5 - 14.5 % [place], [place] Granulocytes/100 WBC (Bld) 92.2 % High 40 - 80 % [place] Hematocrit (Bld) [Volume fraction] 33.9 % Low 35 - 47 % [place] Hemoglobin (Bld) [Mass/Vol] 11.1 g/dL Low 11.7 - 16 g/dL [place], [place] Interpretation and review of laboratory results Abnormal [place] Lymphocytes (Bld) [#/Vol] 0.6 10*3/uL Low 1 - 4.3 10*3/uL [place], [place] Lymphocytes/100 WBC (Bld) 3.9 % Low 20 - 40 % [place] MCH (RBC) [Entitic mass] 31.0 pg 26 - 34 pg [place] MCHC (RBC) [Mass/Vol] 32.8 % 32 - 36 % [place] MCV (RBC) [Entitic vol] 94.6 fL 79 - 98 fL [place] Monocytes (Bld) [#/Vol] 0.5 10*3/uL 0 - 0.8 10*3/uL [place], [place] Monocytes/100 WBC (Bld) 3.7 % 2 - 10 % [place] Platelet mean volume (Bld) [Entitic vol] 7.5 fL 7.4 - 10.4 fL [place] Platelets (Bld) [#/Vol] 208 10*3/uL 140 - 440 10*3/uL [place] RBC (Bld) [#/Vol] 3.58 10*6/uL Low 3.8 - 5.2 10*6/uL [place] WBC (Bld) [#/Vol] 14.7 10*3/uL High 3.6 - 10.7 10*3/uL [place] Test Performed by [facility], [address], [place], [place] [address] [place] [address] Basic Metabolic Panelon 05-1 Anion gap [Moles/Vol] 8 mmol/L [place], [place] Calcium [Mass/Vol] 8.2 mg/dL Low 8.4 - 10. 4 mg/dL [place] Chloride [Moles/Vol] 99 mmol/L 98 - 10 7 mmol/L [place] CO2 [Moles/Vol] 28 mmol/L 22 - 30 mmol/L [place] Creatinine [Mass/Vol] 0.49 mg/dL Low 0.52 - 1.25 mg/dL [place] EGFR IF NonAfrican [place] >90.0 >60 mL/min [place] Comment on above: KDIGO guidelines pro [...] MDRD (S/P/Bld) [Vol rate/Area] mL/min/{1.73_m2} >60 mL/min [place] Glucose [Mass/Vol] 185 mg/dL High 70 - 100 mg/dL [place] Interpretation and review of laboratory results Abnormal [place] Potassium [Moles/Vol] 3.7 mmol/L 3.5 - 5.1 mmol/L [place], [place] Sodium [Moles/Vol] 134 mmol/L Low 135 - 145 mmol/L [place], [place] Urea nitrogen [Mass/Vol] 11 mg/dL 7 - 20 mg/d L [place], [place] CBC Auto Differentialon 05-1 Absolute Baso # 0.0 10*3/uL 0 - 0.2 10*3/uL [place], [place] Absolute Neut # 10.2 10*3/uL High 1.8 - 7 10*3/uL [place], [place] Basophils/100 WBC (Bld) 0.0 % 0 - 2 % [place] Eosinophils (Bld) [#/Vol] 0.0 10*3/uL 0 - 0.5 10*3/uL [place], [place] Eosinophils/100 WBC (Bld) 0.0 % Low 1 - 6 % [place] Erythrocyte distribution width (RBC) [Ratio] 14.0 % 11.5 - 14.5 % [place], [place] Granulocytes/100 WBC (Bld) 94.9 % High 40 - 80 % [place] Hematocrit (Bld) [Volume fraction] 35.8 % 35 - 47 % [place] Hemoglobin (Bld) [Mass/Vol] 11.9 g/dL 11.7 - 16 g/dL [place] Interpretation and review of laboratory results Abnormal [place] Lymphocytes (Bld) [#/Vol] 0.3 10*3/uL Low 1 - 4.3 10*3/uL [place], [place] Lymphocytes/100 WBC (Bld) 3.1 % Low 20 - 40 % [place], [place] MCH (RBC) [Entitic mass] 31.3 pg 26 - 34 pg [place], [place] MCHC (RBC) [Mass/Vol] 33.1 % 32 - 36 % [place] MCV (RBC) [Entitic vol] 94.5 fL 79 - 98 fL [place], [place] Monocytes (Bld) [#/Vol] 0.2 10*3/uL 0 - 0.8 10*3/uL [place], [place] Monocytes/100 WBC (Bld) 2.0 % 2 - 10 % [place] Platelet mean volume (Bld) [Entitic vol] 7.0 fL Low 7.4 - 10.4 fL [place], [place] Platelets (Bld) [#/Vol] 180 10*3/uL 140 - 440 10*3/uL [place] RBC (Bld) [#/Vol] 3.79 10*6/uL Low 3.8 - 5.2 10*6/uL [place] WBC (Bld) [#/Vol] 10.8 10*3/uL High 3.6 - 10.7 10*3/uL [place] Test Performed by [facility], [address] [place], [place] [address] [place], [place] Gram Stainon 08-03-2019 INR Coag (Bld) [Relative time] Moderate epithelial cells/lpf. Many polymorphonuclear cells/lpf. Moderate gram positive cocci Rare gram negative bacilli. Few gram positive bacilli. Few yeast. [place] Test Performed by [facility], [facility] [place] [address] Specimen Source Comment:Sputum Expectorated [place], [place] Legionella Antigen, Urineon 08-03-2019 LEGIONELLA ANTIGEN Legionella antigen N OT DETECTED. [place] Magnesiumon 08-03-2019 Magnesium [Mass/Vol] 2.1 mg/dL 1.6 - 2 .3 mg/dL [place], [place] Otheron 08-03-2019 Test Performed by [facility], [address], [place], [place] [address] [place] [address] Test Performed by [facility], [facility] [place] [address] Specimen Source Comment:Urine, clean catch [place], [place] Respiratory Virus PCR Panelo n 08-03-2019 [...] pertussis, Bordetella parapertussis, Chlamydia pneumoniae, Mycoplasma pneumoniae [place] Test Performed by [facility], [address] [place] [address] Specimen Source Comment:Nasopharyngeal Swab [place] STREP PNEUMONIAE ANTIGENon 0 08-03-2019 STREP PNEUMONIAE ANTIGEN, URINE Strep pneumo antigen NOT DETECTED. [place] Urinalysison 08-03-2019 Appearance (U) Clear Clear NA [place] Comment on above: . Bilirubin Urine Negative Negative mg/dL [place] Comment on above: . Color (U) Yellow Lt. Yellow NA [place] Comment on above: . Glucose, Ur Normal Normal (<70) mg/dL [place], [place] Comment on above: . Interpretation and review of laboratory results Abnormal [place] Ketones Ql (U) Negative Negative mg/dL [place] Comment on above: . LEUKOCYTES, UA Negative Negative Sandra/uL [place] Comment on above: . Mucous Threads Few Negative /[LPF] [place], [place] Comment on above: . Nitrite, Urine Negative Negative NA [place] Comment on above: . Occult Blood,Urine Negative Negative mg/dL [place] Comment on above: . pH (U) 6.5 [pH] [place] Comment on above: . Protein (U) [Mass/Vol] 10 mg/dL Abnormal Negative [place] Comment on above: . RBC (U) [#/Vol] 0-2 0 - 2 /[HPF] [place] Comment on above: . Specific [place], Urine 1.014 [place] Comment on above: . Squam Epithel, UA 0-2 3 - 5 /[HPF] [place] Comment on above: . Urobilinogen, Urine 2 mg/dL Abnormal Normal (0-1) [place] Comment on above: . WBC, UA 0-2 0 - 5 /[HPF] [place], [place] Comment on above: . Test [facility] by [facility], [address], [place], [place] [address] [place] Basic Metabolic Panelon 07-19 Anion gap [Moles/Vol] 11 mmol/L [place], [place] Calcium [Mass/Vol] 8.7 mg/dL 8.4 - 10. 4 mg/dL [place], [place] Chloride [Moles/Vol] 101 mmol/L 98 - 10 7 mmol/L [place] CO2 [Moles/Vol] 26 mmol/L 22 - 30 mmol/L [place], [place] Creatinine [Mass/Vol] 0.61 mg/dL 0.52 - 1.25 mg/dL [place], [place] EGFR IF NonAfrican [place] >90.0 >60 mL/min [place] Comment on above: KDIGO guidelines pro [...] MDRD (S/P/Bld) [Vol rate/Area] mL/min/{1.73_m2} >60 mL/min [place] Glucose [Mass/Vol] 118 mg/dL High 70 - 100 mg/dL [place] Interpretation and review of laboratory results Abnormal [place] Potassium [Moles/Vol] 3.5 mmol/L 3.5 - 5.1 mmol/L [place] Sodium [Moles/Vol] 139 mmol/L 135 - 145 mmol/L [place], [place] Urea nitrogen [Mass/Vol] 9 mg/dL 7 - 20 mg/d L [place] Test Performed by [facility], [address], [place], [place] [address] [place] COVID-19on 08-02-2019 SARS-CoV-2 Not Detected Expected Result: Not Detected _ Real-time, RT-PCR performed on the [employer] System by the [facility] Microbiology Service. Negative results do not preclude SARS-CoV-2 infection and should not be used as the sole basis for treatment or other patient management decisions. This assay was developed by [employer] and distributed under an Emergency Use Authorization (EUA) granted by the FDA for the qualitative detection of SARS-CoV-2 nucleic acid. [place] Test Performed by [facility], [address] [place] [id number] Specimen Source Comment:Nasopharyngeal Swab [place] Hemogram (CBC)on 08-02-2019 Erythrocyte distribution width (RBC) [Ratio] 14.1 % 11.5 - 14.5 % [place] Hematocrit (Bld) [Volume fraction] 37.5 % 35 - 47 % [place] Hemoglobin (Bld) [Mass/Vol] 12.5 g/dL 11.7 - 16 g/dL [place] Interpretation and review of laboratory results Abnormal [place] MCH (RBC) [Entitic mass] 31.5 pg 26 - 34 pg [place] MCHC (RBC) [Mass/Vol] 33.4 % 32 - 36 % [place] MCV (RBC) [Entitic vol] 94.3 fL 79 - 98 fL [place] Platelet mean volume (Bld) [Entitic vol] 7.6 fL 7.4 - 10.4 fL [place] Platelets (Bld) [#/Vol] 196 10*3/uL 140 - 440 10*3/uL [place] RBC (Bld) [#/Vol] 3.98 10*6/uL 3.8 - 5.2 10*6/uL [place] WBC (Bld) [#/Vol] 12.6 10*3/uL High 3.6 - 10.7 10*3/uL [place] Test Performed by [facility], [address] [place], [place], [place] [address] [place] Lactic Acid, Plasmaon 2019 Interpretation and review of laboratory results Abnormal [place] Lactate [Moles/Vol] 0.6 mmol/L Low 0.7 - 2 mmol/L [place] Test Performed by [facility], [address] [place] [address] [place] Troponin x1on 08-02-2019 Troponin I.cardiac [Mass/Vol] ng/mL 0 - 0.034 ng/mL [place] Comment on above: . Test Performed by [facility], [address], [place], [place] [address] [place] XR CHEST PORTABLEon 08-02-19 20 Real, [facility] Incoming Radiology Results From [facility] - 08/02/2019 6:51 PM EDT Patient Name: GONZALO DELUCA ---Diagnostic Radiology--- Exam Date/Time 08/02/2019 18:40:13 EDT Exam CR Chest Portable Ordering Physician JOANIE ALMONTE Accession Number [id number] CPT4 Codes 38306 () Reason For Exam SOB, cough Report [...] Osseous degenerative changes. Report Dictated on Workstation: [facility] --- Final --- Dictating Physician: MD CAMACHO BRIAN Signed Date and Time: 08/02/2019 6:49 pm Signed by: MD CAMACHO BRIAN Transcribed Date and Time: 08/02/2019 6:50 [place] Patient Name: GONZALO DELUCA ---Diagnostic Radiology--- Exam Date/Time 08/02/2019 18:40:13 EDT Exam CR Chest Portable Ordering Physician JOANIE ALMONTE Accession Number [id number] CPT4 Codes 26829 () Reason For Exam SOB, cough Report [...] Osseous degenerative changes. Report Dictated on Workstation: [id number] --- Final --- Dictating Physician: MD CAMACHO BRIAN Signed Date and Time: 08/02/2019 6:49 pm Signed by: MD CAMACHO BRIAN Transcribed Date and Time: 08/02/2019 6:50 [place] Vital Signs Date Time Vital Sign Value Performing Clinician Facility 08-20-2024 10:28-0400 Body height 162.6 cm Elyssa Tesfaye NP Work Phone: [facility] Variable 08-20-2024 10:28-0400 Body mass index (BMI) [Ratio] 16 kg/m2 Elyssa Tesfaye IMMIGRATION ATTORNEY Work Phone: [facility] Variable 08-20-2024 10:28-0400 Body temperature 96.8 [degF] Elyssa Tesfaye IMMIGRATION ATTORNEY Work Phone: [facility] Variable 08-20-2024 10:28-0400 Body weight 42.27 kg Elyssa Tesfaye NP Work Phone: [facility] 08-20-2024 10:28-0400 Diastolic blood pressure 67 mm[Hg] Elyssa Tesfaye IMMIGRATION ATTORNEY Work Phone: [facility] 08-20-2024 10:28-0400 Heart rate 92 /min Elyssa Tesfaye NP Work Phone: [employer] [facility] 08-20-2024 10:28-0400 SaO2% (BldA) [Mass fraction] 91 % Elyssa Tesfaye NP Work Phone: [employer] [facility] Comment on above: 4Lp 08-20-2024 10:28-0400 Systolic blood pressure 105 mm[Hg] Elyssa Tesfaye NP Work Phone: [facility] 08-08-2024 13:22-0400 Heart rate 88 /min Luis E Keating DO Work Phone: [facility] 08-08-2024 13:22-0400 Respiratory rate 24 /min Luis E Keating DO Work Phone: [facility] 08-08-2024 13:22-0400 SaO2% (BldA) [Mass fraction] 92 % Luis E Glaserla DO Work Phone: [facility] 08-08-2024 08:14-0400 Body temperature 97.2 [degF] Luis E Glaserla DO Work Phone: [facility] 08-08-2024 08:14-0400 Diastolic blood pressure 64 mm[Hg] Luis E Jailynla DO Work Phone: [facility] 08-08-2024 08:14-0400 Systolic blood pressure 99 mm[Hg] Luis E Glaserla DO Work Phone: [facility] 08-06-2024 14:25-0400 Body height 162.6 cm Luis E Keating DO Work Phone: [facility] 08-03-2024 21:01-0400 Body mass index (BMI) [Ratio] 15.29 kg/m2 Luis E Keating DO Work Phone: [facility] 08-03-2024 21:01-0400 Body weight 40.4 kg Luis E Keating DO Work Phone: [facility] 07-30-2024 14:53-0400 Body height 164.1 cm Herminia Case MD Work Phone: [facility] 07-30-2024 14:53-0400 Body mass index (BMI) [Ratio] 15.08 kg/m2 Herminia Case MD Work Phone: [facility] 07-30-2024 14:53-0400 Body temperature 98.4 [degF] Herminia Case MD Work Phone: [facility] 07-30-2024 14:53-0400 Body weight 40.6 kg Herminia Case MD Work Phone: [facility] 07-30-2024 14:53-0400 Diastolic blood pressure 78 mm[Hg] Herminia Case MD Work Phone: [facility] 07-30-2024 14:53-0400 Heart rate 106 /min Herminia Case MD Work Phone: [facility] 07-30-2024 14:53-0400 SaO2% (BldA) [Mass fraction] 82 % Herminia Case MD Work Phone: [facility] 07-30-2024 14:53-0400 Systolic blood pressure 120 mm[Hg] Herminia Case MD Work Phone: [facility] 04-28-2024 01:19-0500 Diastolic blood pressure 78 mm[Hg] Flako Altamirano MD Work Phone: [facility] 04-28-2024 01:19-0500 Heart rate 87 /min Flako Altamirano MD Work Phone: [facility] 04-28-2024 01:19-0500 Respiratory rate 16 /min Flako Altamirano MD Work Phone: [facility] 04-28-2024 01:19-0500 SaO2% (BldA) [Mass fraction] 96 % Flako Altamirano MD Work Phone: [facility] 04-28-2024 01:19-0500 Systolic blood pressure 119 mm[Hg] Flako Altamirano MD Work Phone: [employer] [facility] 04-27-2024 23:43-0500 Body height 160 cm Flako Altamirano MD Work Phone: [facility] 04-27-2024 23:43-0500 Body mass index (BMI) [Ratio] 19.13 kg/m2 Flako Altamirano MD Work Phone: [facility] 04-27-2024 23:43-0500 Body temperature 98.1 [degF] Flako Altamirano MD Work Phone: [facility] 04-27-2024 23:43-0500 Body weight 48.99 kg Flako Altamirano MD Work Phone: [facility] 10-16-2023 21:24-0400 Body temperature 98.1 [degF] Herminia Case MD Work Phone: [facility] 10-16-2023 21:24-0400 Diastolic blood pressure 95 mm[Hg] Herminia Case MD Work Phone: [facility] 10-16-2023 21:24-0400 Heart rate 99 /min Herminia Case MD Work Phone: [facility] 10-16-2023 21:24-0400 Respiratory rate 14 /min Herminia Case MD Work Phone: [facility] 10-16-2023 21:24-0400 SaO2% (BldA) [Mass fraction] 94 % Herminia Case MD Work Phone: [facility] 10-16-2023 21:24-0400 Systolic blood pressure 125 mm[Hg] Herminia Case MD Work Phone: [facility] 09-22-2023 07:58-0400 Body temperature 97.39 [degF] Jono Weathers MD Work Phone: [facility] 09-22-2023 07:58-0400 Diastolic blood pressure 96 mm[Hg] Jono Weathers MD Work Phone: [facility] 09-22-2023 07:58-0400 Heart rate 99 /min Jono Weathers MD Work Phone: [facility] 09-22-2023 07:58-0400 Respiratory rate 17 /min Jono Weathers MD Work Phone: [facility] 09-22-2023 07:58-0400 SaO2% (BldA) [Mass fraction] 96 % Jono Weathers MD Work Phone: [facility] 09-22-2023 07:58-0400 Systolic blood pressure 140 mm[Hg] Jono Weathers MD Work Phone: [facility] 09-20-2023 15:22-0400 Body height 165.1 cm Jono Weathers MD Work Phone: [facility] 09-20-2023 15:22-0400 Body mass index (BMI) [Ratio] 19.14 kg/m2 Jono Weathers MD Work Phone: [facility] 09-20-2023 15:22-0400 Body weight 52.16 kg Jono Weathers MD Work Phone: [facility] 09-08-2023 15:40-0400 Body height 164.1 cm Barbi Goldberg MD Work Phone: [facility] 09-08-2023 15:40-0400 Body mass index (BMI) [Ratio] 20.61 kg/m2 Barbi Goldberg MD Work Phone: [facility] 09-08-2023 15:40-0400 Body temperature 99.3 [degF] Barbi Goldberg MD Work Phone: [facility] 09-08-2023 15:40-0400 Body weight 55.5 kg Barbi Goldberg MD Work Phone: [facility] 09-08-2023 15:40-0400 Diastolic blood pressure 87 mm[Hg] Barbi Goldberg MD Work Phone: [facility] 09-08-2023 15:40-0400 Heart rate 105 /min Barbi Goldberg MD Work Phone: [facility] 09-08-2023 15:40-0400 SaO2% (BldA) [Mass fraction] 92 % Barbi Goldberg MD Work Phone: [facility] 09-08-2023 15:40-0400 Systolic blood pressure 139 mm[Hg] Barbi Goldberg MD Work Phone: [facility] 08-07-2023 18:00-0400 Diastolic blood pressure 79 mm[Hg] Herminia Case MD Work Phone: [facility] 08-07-2023 18:00-0400 Heart rate 97 /min Herminia Case MD Work Phone: [facility] 08-07-2023 18:00-0400 Respiratory rate 23 /min Herminia Case MD Work Phone: [facility] 08-07-2023 18:00-0400 SaO2% (BldA) [Mass fraction] 92 % Herminia Case MD Work Phone: [facility] 08-07-2023 18:00-0400 Systolic blood pressure 137 mm[Hg] Herminia Case MD Work Phone: [facility] 08-07-2023 14:41-0400 Body mass index (BMI) [Ratio] 20.8 kg/m2 Herminia Case MD Work Phone: [facility] 08-07-2023 14:41-0400 Body temperature 98.01 [degF] Herminia Case MD Work Phone: [facility] 08-07-2023 14:41-0400 Body weight 56.7 kg Herminia Case MD Work Phone: [facility] 05-02-2023 14:31-0500 Body height 164.1 cm Herminia Case MD Work Phone: [facility] 05-02-2023 14:31-0500 Body temperature 98.1 [degF] Herminia Case MD Work Phone: [facility] 05-02-2023 14:31-0500 Body weight 60.1 kg Herminia Case MD Work Phone: [facility] 05-02-2023 14:31-0500 Diastolic blood pressure 78 mm[Hg] Herminia Case MD Work Phone: [facility] 05-02-2023 14:31-0500 Heart rate 87 /min Herminia Case MD Work Phone: [facility] 05-02-2023 14:31-0500 SaO2% (BldA) [Mass fraction] 90 % Herminia Case MD Work Phone: [facility] 05-02-2023 14:31-0500 Systolic blood pressure 112 mm[Hg] Herminia Case MD Work Phone: [facility] 02-18-2023 09:31-0500 Body temperature 98.01 [degF] Lorenzo Orozco MD Work Phone: [facility] 02-18-2023 09:31-0500 Diastolic blood pressure 76 mm[Hg] Lorenzo Orozco MD Work Phone: [facility] 02-18-2023 09:31-0500 Heart rate 87 /min Lorenzo Orozco MD Work Phone: [facility] 02-18-2023 09:31-0500 Respiratory rate 20 /min Lorenzo Orozco MD Work Phone: [facility] 02-18-2023 09:31-0500 SaO2% (BldA) [Mass fraction] 97 % Lorenzo Orozco MD Work Phone: [facility] 02-18-2023 09:31-0500 Systolic blood pressure 128 mm[Hg] Lorenzo Orozco MD Work Phone: [facility] 02-14-2023 10:00-0500 Body mass index (BMI) [Ratio] 22.47 kg/m2 Lorenzo Orozco MD Work Phone: [facility] 02-14-2023 10:00-0500 Body weight 61.24 kg Lorenzo Orozco MD Work Phone: [facility] 02-13-2023 19:05-0500 Body height 165.1 cm Lorenzo Orozco MD Work Phone: [facility] 01-14-2023 16:00-0400 Body height 164.1 cm Herminia Case MD Work Phone: [facility] 01-14-2023 16:00-0400 Body temperature 97.59 [degF] Herminia Case MD Work Phone: [facility] 01-14-2023 16:00-0400 Body weight 62.14 kg Herminia Case MD Work Phone: [facility] 01-14-2023 16:00-0400 Diastolic blood pressure 70 mm[Hg] Herminia Case MD Work Phone: [facility] 01-14-2023 16:00-0400 Heart rate 83 /min Herminia Case MD Work Phone: [facility] 01-14-2023 16:00-0400 SaO2% (BldA) [Mass fraction] 93 % Herminia Case MD Work Phone: [facility] 01-14-2023 16:00-0400 Systolic blood pressure 100 mm[Hg] Herminia Case MD Work Phone: [facility] 11-08-2022 08:37-0400 Heart rate 87 /min Austyn Mccann DO Work Phone: [employer] 11-08-2022 08:37-0400 Respiratory rate 16 /min Austyn Mccann DO Work Phone: [employer] 11-08-2022 08:37-0400 SaO2% (BldA) [Mass fraction] 97 % Austyn Mccann DO Work Phone: [employer] 11-08-2022 07:29-0400 Body temperature 97.81 [degF] Austyn Mccann DO Work Phone: [employer] 11-08-2022 07:29-0400 Diastolic blood pressure 63 mm[Hg] Austyn Valentinbour DO Work Phone: [employer] 11-08-2022 07:29-0400 Systolic blood pressure 108 mm[Hg] Austyn Mccann DO Work Phone: [employer] 11-06-2022 18:36-0400 Body height 162.6 cm Austyn Mccann DO Work Phone: [employer] 11-06-2022 18:36-0400 Body mass index (BMI) [Ratio] 22.31 kg/m2 Austyn Mccann DO Work Phone: [facility] 11-06-2022 18:36-0400 Body weight 58.97 kg Austyn Mccann DO Work Phone: [facility] 10-20-2022 14:06-0400 Body height 160 cm Kisha Afshin SPRAYING MACHINE OPERATOR - CARD PLACER Work Phone: [facility] 10-20-2022 14:06-0400 Body mass index (BMI) [Ratio] 23.56 kg/m2 Kisha Afshin SPRAYING MACHINE OPERATOR - CARD PLACER Work Phone: [facility] 10-20-2022 14:06-0400 Body weight 60.33 kg Kisha Afshin SPRAYING MACHINE OPERATOR - CARD PLACER Work Phone: [facility] 10-20-2022 14:06-0400 Diastolic blood pressure 83 mm[Hg] Kisha Afshin SPRAYING MACHINE OPERATOR - CARD PLACER Work Phone: [facility] 10-20-2022 14:06-0400 Heart rate 96 /min Kisha Afshin SPRAYING MACHINE OPERATOR - CARD PLACER Work Phone: [facility] 10-20-2022 14:06-0400 Systolic blood pressure 143 mm[Hg] Kisha Afshin SPRAYING MACHINE OPERATOR - CARD PLACER Work Phone: [facility] 09-15-2022 14:40-0400 Body height 165.1 cm Melva Ladonna PA-C Work Phone: [facility] 09-15-2022 14:40-0400 Body temperature 97.3 [degF] Melva Ladonna PA-C Work Phone: [facility] 09-15-2022 14:40-0400 Body weight 61.1 kg Melva Ladonna PA-C Work Phone: [facility] 09-15-2022 14:40-0400 Diastolic blood pressure 78 mm[Hg] Melva [place] PA-C Work Phone: [facility] 09-15-2022 14:40-0400 Heart rate 101 /min Melva [place] PA-C Work Phone: [facility] 09-15-2022 14:40-0400 SaO2% (BldA) [Mass fraction] 95 % Melva Milianland PA-C Work Phone: [facility] 09-15-2022 14:40-0400 Systolic blood pressure 133 mm[Hg] Melva Milianland PA-C Work Phone: [facility] 05-24-2022 07:52-0500 Heart rate 98 /min Martha Flores MD Work Phone: [facility] 05-24-2022 07:52-0500 Respiratory rate 16 /min Martha Flores MD Work Phone: [facility] 05-24-2022 07:52-0500 SaO2% (BldA) [Mass fraction] 92 % Martha Flores MD Work Phone: [facility] 05-24-2022 07:24-0500 Body temperature 98.49 [degF] Martha Flores MD Work Phone: [facility] 05-24-2022 07:24-0500 Diastolic blood pressure 73 mm[Hg] Martha Flores MD Work Phone: [facility] 05-24-2022 07:24-0500 Systolic blood pressure 126 mm[Hg] Martha Flores MD Work Phone: [facility] 05-22-2022 05:38-0500 Body mass index (BMI) [Ratio] 24.32 kg/m2 Martha Flores MD Work Phone: [facility] 05-22-2022 05:38-0500 Body weight 66.3 kg Martha Flores MD Work Phone: [facility] 05-21-2022 17:58-0500 Body height 165.1 cm Martha Flores MD Work Phone: [facility] 04-21-2022 14:05-0500 Body height 165.1 cm Sally Rocha APRN - [place] Work Phone: [facility] 04-21-2022 14:05-0500 Body mass index (BMI) [Ratio] 23.63 kg/m2 Sally Rocha APRN - CARD PLACER Work Phone: [facility] 04-21-2022 14:05-0500 Body weight 64.41 kg Sally Rocha APRN - [place] Work Phone: [facility] 04-21-2022 14:05-0500 Diastolic blood pressure 78 mm[Hg] Sally Rocha APRN - CARD PLACER Work Phone: [facility] 04-21-2022 14:05-0500 Heart rate 93 /min Sally Rocha APRN - [place] Work Phone: [facility] 04-21-2022 14:05-0500 Systolic blood pressure 122 mm[Hg] Sally Rocha APRN - [place] Work Phone: [facility] 08-06-2021 17:18-0400 Heart rate 96 /min Herminia Case MD Work Phone: [facility] 08-06-2021 17:18-0400 SaO2% (BldA) [Mass fraction] 84 % Herminia Case MD Work Phone: [facility] 08-06-2021 16:44-0400 Diastolic blood pressure 74 mm[Hg] Herminia Case MD Work Phone: [facility] 08-06-2021 16:44-0400 Systolic blood pressure 124 mm[Hg] Herminia Case MD Work Phone: [facility] 08-06-2021 16:35-0400 Body temperature 98.8 [degF] Herminia Case MD Work Phone: [facility] 08-06-2021 16:35-0400 Body weight 58.79 kg Herminia Case MD Work Phone: [facility] 10-16-2020 14:42-0400 Body temperature 98.49 [degF] Herminia Case MD [facility] Phone[facility] Work Phone: 10-16-2020 14:42-0400 Diastolic blood pressure 79 mm[Hg] Herminia Case MD Work Phone: [facility] Work Phone: 10-16-2020 14:42-0400 Heart rate 85 /min Herminia Case MD Work Phone: [facility] Work Phone: 10-16-2020 14:42-0400 Respiratory rate 20 /min Herminia Case MD Work Phone: [facility] Work Phone: 10-16-2020 14:42-0400 SaO2% (BldA) [Mass fraction] 91 % Herminia Case MD Work Phone: [facility] Work Phone: 10-16-2020 14:42-0400 Systolic blood pressure 117 mm[Hg] Herminia Case MD Work Phone: [facility] Work Phone: 03-16-2020 16:32-0500 BP Diastolic 83 mm[Hg] [place], [place] 03-16-2020 16:32-0500 BP Systolic 133 mm[Hg] [place] 03-16-2020 16:32-0500 Pulse (Heart Rate) 101 /min [place], [place] 03-16-2020 16:32-0500 Pulse Oximetry 94 % [place] 03-16-2020 16:32-0500 Respiratory Rate 20 /min [facility], [place] 03-16-2020 11:57-0500 BMI (Body Mass Index) 23.17 kg/m2 [place], [place] 03-16-2020 11:57-0500 Body Temperature 98.8 [degF] [facility], [place] 03-16-2020 11:57-0500 Body weight 61.24 kg Tani Joseph [facility] , [place] 02-22-2020 09:21-0500 BP Diastolic 72 mm[Hg] Ziyad Menendez [facility] , [place] 02-22-2020 09:21-0500 BP Systolic 102 mm[Hg] Ziyad Alicia [facility] , [place] 02-22-2020 09:21-0500 Pulse (Heart Rate) 98 /min [facility]ad [facility], [place] 02-22-2020 09:21-0500 Pulse Oximetry 92 % Ziyad Menendez [facility] , [place] 02-22-2020 09:21-0500 Respiratory Rate 16 /min Ziyad Menendez [facility] [place] 02-22-2020 09:07-0500 BMI (Body Mass Index) 23.52 kg/m2 Ziyad Alicia [facility], [place] 02-22-2020 09:07-0500 Body weight 62.14 kg Ziyad Menendez [facility] , [place] 02-22-2020 09:07-0500 Height 162.6 cm Ziyad Alicia [facility] , [place] 02-21-2020 14:47-0500 Body Temperature 97.59 [degF] Ziyad Menendez [facility] [place] 02-21-2020 14:47-0500 BP Diastolic 74 mm[Hg] Ziyad Menendez [facility] , [place] 02-21-2020 14:47-0500 BP Systolic 113 mm[Hg] Ziyad Menendez [facility] , [place] 02-21-2020 14:47-0500 Pulse (Heart Rate) 90 /min Ziyad Menendez [facility], [place] 02-21-2020 14:47-0500 Respiratory Rate 20 /min Ziyad Menendez [facility] 02-08-2020 09:28-0500 BMI (Body Mass Index) 23.48 kg/m2 Ziyad Menendez [facility], [place] 02-08-2020 09:28-0500 Body Temperature 98.6 [degF] Ziyad Menendez [facility] [place] 02-08-2020 09:28-0500 Body weight 62.05 kg Ziyad Menendez [facility] , [place] 02-08-2020 09:28-0500 BP Diastolic 81 mm[Hg] Ziyad Alicia [facility] , [place] 02-08-2020 09:28-0500 BP Systolic 98 mm[Hg] Ziyad Alicia [facility] , [place] 02-08-2020 09:28-0500 Height 162.6 cm Ziyad Alicia [facility] , [place] 02-08-2020 09:28-0500 Pulse (Heart Rate) 104 /min Ziyad Alicia [facility], [place] 02-08-2020 09:28-0500 Pulse Oximetry 91 % Ziyad Alicia [facility] , [place] 02-08-2020 09:28-0500 Respiratory Rate 16 /min Ziyad Alicia [facility] [place] 02-01-2020 09:08-0500 BMI (Body Mass Index) 23.49 kg/m2 Ziyad Alicia [facility], [place] 02-01-2020 09:08-0500 Body weight 62.41 kg Ziyad Menendez [facility] , [place] 02-01-2020 [id number] Height 163 cm Ziyad Alicia [facility] , [place] 01-31-2020 14:04-0500 Body Temperature 97.9 [degF] Ziyad Menendez [facility] [place] 01-31-2020 14:04-0500 BP Diastolic 82 mm[Hg] Ziyad Alicia [facility] , [place] 01-31-2020 14:04-0500 BP Systolic 117 mm[Hg] Ziyad Menendez [facility] [place] 01-31-2020 14:04-0500 Pulse (Heart Rate) 109 /min Ziyad Alicia [facility], [place] 01-31-2020 14:04-0500 Respiratory Rate 20 /min Ziyad Mneendez [facility] [place] 01-25-2020 09:25-0500 Body Temperature 99.19 [degF] Ziyad Menendez [facility] [place] 01-25-2020 09:25-0500 BP Diastolic 80 mm[Hg] Ziyad Menendez [facility] [place] , [place] 01-25-2020 09:25-0500 BP Systolic 113 mm[Hg] Ziyad Menendez [facility] , [place] 01-25-2020 09:25-0500 Pulse (Heart Rate) 104 /min Ziyad Menendez [facility], [place] 01-25-2020 09:25-0500 Pulse Oximetry 93 % Ziyad Alicia [facility] , [place] 01-25-2020 09:25-0500 Respiratory Rate 16 /min Ziyad Alicia [facility], [place] 01-25-2020 09:21-0500 BMI (Body Mass Index) 23.22 kg/m2 Ziyad Menendez [facility], [place] 01-25-2020 09:21-0500 Body weight 61.69 kg Ziyad Menendez [facility] , [place] 01-25-2020 09:21-0500 Height 163 cm Ziyad Menendez [facility] , [place] 01-24-2020 09:25-0500 BMI (Body Mass Index) 23.22 kg/m2 Ziyad Menendez [facility], [place] 01-24-2020 09:25-0500 Body weight 61.69 kg Ziyad Menendez [facility] , [place] 12-19-2019 15:00-0400 BP Diastolic 77 mm[Hg] Ziyad Menendez [facility] , [place] 12-19-2019 15:00-0400 BP Systolic 144 mm[Hg] Ziyad Menendez [facility] , [place] 12-19-2019 15:00-0400 Pulse (Heart Rate) 92 /min [facility] [place] 12-19-2019 15:00-0400 Pulse Oximetry 99 % Ziyad Menendez [facility] , [place] 12-19-2019 15:00-0400 Respiratory Rate 18 /min Ziyad Menendez [facility], [place] 12-19-2019 11:25-0400 BMI (Body Mass Index) 23.46 kg/m2 Ziyad Menendez [facility], [place] 12-19-2019 11:25-0400 Body Temperature 99.5 [degF] Ziyad Menendez [facility], [place] 12-19-2019 11:25-0400 Body weight 63.96 kg Ziyad Menendez [facility] , [place] 12-19-2019 11:25-0400 Height 165.1 cm Ziyad Menendez [facility] , [place] 11-24-2019 11:45-0400 Body Temperature 98.2 [degF] [facility] [place] 11-24-2019 11:45-0400 BP Diastolic 81 mm[Hg] [facility], [place] 11-24-2019 11:45-0400 BP Systolic 126 mm[Hg[facility] [place] 11-24-2019 11:45-0400 Pulse (Heart Rate) 90 /min [facility], [place] 11-24-2019 11:45-0400 Pulse Oximetry 97 % [facility], [place] 11-24-2019 11:45-0400 Respiratory Rate 18 /min [facility], [place] 11-22-2019 10:31-0400 Height 165.1 cm [facility], [place] 11-21-2019 21:35-0400 BMI (Body Mass Index) 25.96 kg/m2 [facility], [place] 11-21-2019 21:35-0400 Body weight 70.76 kg [facility], [place] 11-09-2019 22:55-0400 BMI (Body Mass Index) 24.96 kg/m2 [facility], [place] 11-09-2019 22:55-0400 Body Temperature 98.29 [degF] [facility], [place] 11-09-2019 22:55-0400 Body weight 68.04 kg [facility] , [place] Comment on above: from 10/21/19 11-09-2019 22:55-0400 BP Diastolic 72 mm[Hg] [facility] , [place] 11-09-2019 22:55-0400 BP Systolic 120 mm[Hg] [facility] , [place] 11-09-2019 22:55-0400 Pulse (Heart Rate) 107 /min [facility], [place] 11-09-2019 22:55-0400 Pulse Oximetry 95 % [facility] , [place] 11-09-2019 22:55-0400 Respiratory Rate 18 /min Tani Joseph [facility] [place] 11-05-2019 13:04-0400 BMI (Body Mass Index) 24.96 kg/m2 Ziyad Alicia [facility], [place] 11-05-2019 13:04-0400 Body Temperature 98.49 [degF] [facility] [place] 11-05-2019 13:04-0400 Body weight 68.04 kg Ziyad Alicia [facility] , [place] 11-05-2019 13:04-0400 BP Diastolic 83 mm[Hg] Ziyad Alicia [facility] , [place] 11-05-2019 13:04-0400 BP Systolic 124 mm[Hg] Ziyad Menendez [facility] , [place] 11-05-2019 13:04-0400 Height 165.1 cm Ziyad Alicia [facility] , [place] 11-05-2019 13:04-0400 Pulse (Heart Rate) 92 /min Ziyad Alicia [facility], [place] 11-05-2019 13:04-0400 Pulse Oximetry 89 % Ziyad Alicia [facility] , [place] 11-05-2019 13:04-0400 Respiratory Rate 16 /min Ziyad Menendez [facility] [place] 10-27-2019 17:39-0400 BP Diastolic 82 mm[Hg] Ankit Zaragoza [facility] , [place] 10-27-2019 17:39-0400 BP Systolic 129 mm[Hg] [facility] [place] 10-27-2019 17:39-0400 Pulse (Heart Rate) 87 /min Ankit Zaragoza [facility], [place] 10-27-2019 17:39-0400 Pulse Oximetry 95 % Ankit Zaragoza [facility] , [place] 10-27-2019 17:39-0400 Respiratory Rate 18 /min [facility]agoza [facility] [place] 10-27-2019 15:07-0400 Body Temperature 98.2 [degF] Ankit Zaragoza [facility] [place] 10-27-2019 15:04-0400 BMI (Body Mass Index) 24.96 kg/m2 [facility] [place] 10-27-2019 15:04-0400 Body weight 68.04 kg Ankit Zaragoza [facility] , [place] 10-27-2019 15:04-0400 Height 165.1 cm Ankit Zaragoza [facility] , [place] 10-21-2019 23:01-0400 BP Diastolic 99 mm[Hg] Jaspreet [facility] , [place] 10-21-2019 23:01-0400 BP Systolic 152 mm[Hg] Jaspreet [facility] , [place] 10-21-2019 23:01-0400 Pulse (Heart Rate) 86 /min Jaspreet [facility], [place] 10-21-2019 23:01-0400 Pulse Oximetry 95 % Jaspreet [facility] , [place] 10-21-2019 23:01-0400 Respiratory Rate 18 /min Jaspreet [facility], [place] 10-21-2019 19:59-0400 BMI (Body Mass Index) 24.96 kg/m2 Jaspreet [facility], [place] 10-21-2019 19:59-0400 Body Temperature 98.29 [degF] [facility], [place] 10-21-2019 19:59-0400 Body weight 68.04 kg Jaspreet [facility] , [place] 08-04-2019 09:35-0400 Pulse Oximetry 95 % [facility] [place] 08-04-2019 09:35-0400 Respiratory Rate 18 /[facility] [place] 08-04-2019 09:08-0400 Body Temperature 98.1 [degF] [facility] [place] 08-04-2019 09:08-0400 BP Diastolic 74 mm[Hg] [facility] , [place] 08-04-2019 09:08-0400 BP Systolic 120 mm[Hg] [facility] [place] 08-04-2019 09:08-0400 Pulse (Heart Rate) 66 /min [facility], [place] 08-02-2019 20:51-0400 BMI (Body Mass Index) 23.3 kg/m2 [facility], [place] 08-02-2019 20:51-0400 Body weight 63.5 kg [facility] ONEL 08-02-2019 20:51-0400 Height 165.1 cm [place], [place] Encounters Encounter Date Encounter Type Care Provider Facility Start: 11-20-2024 End: 11-20-2024 ambulatory [facility] Start: 11-20-2024 End: 11-20-2024 Subsequent hospital visit by physician Elyssa Tesfaye NP Work Phone: [facility] Comment on above: Chronic obstructive pulmonary disease with acute lower respiratory infection (HCC) Start: 10-24-2024 End: 10-24-2024 ambulatory [facility] Start: 10-01-2024 ambulatory Jameson Mackenziejanes OLS Faci lity:[facility] Start: 09-17-2024 ambulatory Jameson Mackenziejanes OLS Faci lity:[facility] Start: 09-14-2024 ambulatory Jameson Mannjanes OLS Faci lity:[facility] Start: 09-07-2024 End: 09-11-2024 Refill Herminia Case MD Work Phone: [facility] Comment on above: Refill Request Start: 09-07-2024 End: 09-07-2024 Telephone encounter Ziyad Menendez MD Work Phone: [facility] Gynecologic Oncology - [place] Start: 09-06-2024 End: 09-06-2024 ambulatory Ziyad Menendez MD Work Phone: [facility] Comment on above: Other specified comp lication of vascular prosthetic devices, implants and grafts, initial encounter (HCC) (Primary Dx); Poor venous access Start: 08-22-2024 End: 09-03-2024 Refill [facility] Comment on above: Refill Request Start: 08-20-2024 End: 08-20-2024 Office outpatient visit 25 minutes Elyssa Tesfaye NP Work Phone: [facility] Pulmonary and Sleep Medicine [place] Comment on above: Hospital discharge f ollow-up (Primary Dx); Acute on chronic respiratory failure with hypoxia (HCC); Centrilobular emphysema (HCC); Aspiration pneumonia of left lower lobe, unspecified aspiration pneumonia type (HCC); Chronic obstructive pulmonary disease with acute lower respiratory infection (HCC); History of tobacco abuse; Severe malnutrition (CMS/HCC) (HCC) Start: 08-20-2024 End: 08-20-2024 ambulatory [facility] Start: 08-18-2024 End: 08-24-2024 Refill Herminia Case MD Work Phone: [facility] Comment on above: Refill Request Start: 08-15-2024 ambulatory Jameson Corral [facility] Faci lity:[facility] Start: 08-13-2024 End: 08-14-2024 Refill Melva Juárez PA-C Work Phone: [facility] Comment on above: Refill Request Start: 08-08-2024 End: 08-08-2024 Orders Only Melva Garcia RN [facility] Palliative Care [facility] Comment on above: Chronic obstructive pulmonary disease, unspecified COPD type (HCC) (Primary Dx); Severe malnutrition (CMS/HCC) (HCC) Start: 07-30-2024 End: 08-08-2024 Evaluation and management of inpatient Luis E Keating DO Work Phone: [facility] Cardiac Progressive Care Unit PCU 2E Comment on above: Adult failure to thr kenton (Primary Dx); Severe protein-calorie malnutrition (HCC); Closed supracondylar fracture of left humerus, initial encounter; Severe malnutrition (CMS/HCC) (HCC); Pulmonary emphysema, unspecified emphysema type (HCC); Chronic obstructive pulmonary disease, unspecified COPD type (HCC) Start: 07-30-2024 End: 07-30-2024 Office outpatient visit 25 minutes Herminia Case MD Work Phone: [facility] Comment on above: Chronic respiratory failure with hypoxia (HCC) (Primary Dx); Centrilobular emphysema (HCC); Adult failure to thrive; Severe protein-calorie malnutrition (HCC) Start: 07-30-2024 End: 07-30-2024 ambulatory HERMINIA CASE Facility:[facility] Start: 07-22-2024 End: 07-23-2024 Refill Herminia Case MD Work Phone: [facility] Comment on above: Refill Request Start: 06-30-2024 End: 07-02-2024 Telephone encounter Herminia Case MD Work Phone: [facility] Comment on above: Orders Start: 06-26-2024 End: 06-26-2024 Refill Melva Juárez PA-C Work Phone: [facility] Comment on above: Refill Request Start: 06-07-2024 End: 06-07-2024 Telephone encounter Maddi Valero LPN Work Phone: [facility] Comment on above: Home Care (SOC appro martín.) Home Care (Confirmat ion call.) Start: 06-06-2024 End: 06-06-2024 ambulatory HERMINIA CASE Facility:[facility] Start: 06-06-2024 End: 06-06-2024 Telemedicine consultation with patient Herminia Case MD Work Phone: [facility] Start: 06-06-2024 End: 06-06-2024 Telephone encounter Herminia Case MD Work Phone: [facility] Comment on above: Home Care Panlobular emphysema (HCC) (Primary Dx); Moderate episode of recurrent major depressive disorder (HCC); Chronic respiratory failure with hypoxia (HCC) Start: 05-26-2024 End: 05-28-2024 Refill Herminia Case MD Work Phone: [facility] Comment on above: Refill Request Start: 05-22-2024 End: 06-22-2024 ambulatory Herminia Case MD Work Phone: [facility] Start: 05-08-2024 End: 05-10-2024 Refill Melva Juárez PA-C Work Phone: [facility] Comment on above: Refill Request Start: 05-02-2024 End: 05-02-2024 [facility] Herminia Case MD Work Phone: [facility] Comment on above: Compression fracture of body of thoracic vertebra (HCC) (Primary Dx); Panlobular emphysema (HCC); Moderate episode of recurrent major depressive disorder (HCC); PAUL (generalized anxiety disorder); Chronic respiratory failure with hypoxia (HCC); Hyperlipidemia, mixed; Hyperglycemia; Other closed nondisplaced fracture of proximal end of right humerus with routine healing, subsequent encounter Start: 04-30-2024 End: 05-01-2024 Refill Herminia Case MD Work Phone: [facility] Comment on above: Refill Request Start: 04-27-2024 End: 04-28-2024 Emergency department patient visit Flako Altamirano MD Work Phone: [facility] ED Comment on above: Contusion of face, i nitial encounter (Primary Dx) Start: 04-23-2024 End: 04-24-2024 ambulatory Melva Juárez PA-C Work Phone: [facility] Comment on above: Copd meds Start: 04-06-2024 End: 04-06-2024 Refill Herminia Case MD Work Phone: [facility] Comment on above: Refill Request Start: 03-31-2024 End: 04-03-2024 Refill Herminia Case MD Work Phone: [facility] Comment on above: Refill Request Start: 03-18-2024 End: 03-20-2024 Refill Melva uJárez PA-C Work Phone: [facility] Comment on above: Refill Request Start: 03-10-2024 End: 03-12-2024 Refill Melva Juárez PA-C Work Phone: [facility] Comment on above: Refill Request Start: 03-09-2024 End: 03-09-2024 Refill Herimnia Case MD Work Phone: [facility] Comment on above: Refill Request Start: 03-04-2024 End: 03-06-2024 Refill Herminia Case MD Work Phone: [facility] Comment on above: Refill Request Start: 03-01-2024 End: 03-05-2024 Telephone encounter Herminia Case MD Work Phone: [facility] Comment on above: Medication Problem Start: 02-06-2024 End: 02-07-2024 ambulatory Melva Juárez PA-C Work Phone: [facility] Comment on above: [place] Refill Request Start: 01-11-2024 End: 01-11-2024 Refill Brando Simon MD Work Phone: [facility] Comment on above: Refill Request Start: 01-10-2024 End: 01-11-2024 Refill Melva Juárez PA-C Work Phone: [facility] Comment on above: Refill Request Start: 01-09-2024 End: 01-11-2024 Refill Herminia Case MD Work Phone: [facility] Comment on above: Refill Request Copd med Start: 01-08-2024 End: 01-09-2024 Refill Herminia Case MD Work Phone: [facility] Comment on above: Refill Request Start: 12-30-2023 End: 12-30-2023 ambulatory Joaquina Rao APRN.CARD PLACER Work Phone: [facility] Comment on above: Panlobular emphysema (HCC) Start: 12-30-2023 End: 12-30-2023 Telemedicine consultation with patient Joaquina Rao APRN.CARD PLACER Work Phone: [facility] Start: 12-27-2023 End: 12-27-2023 Refill Jessica Kong APRN.CARD PLACER Work Phone: [facility] Comment on above: Refill Request Start: 12-27-2023 End: 12-27-2023 Telephone encounter Herminia Case MD Work Phone: [facility] Comment on above: Orders Start: 12-13-2023 End: 12-14-2023 Telephone encounter Herminia Case MD Work Phone: [facility] Comment on above: Results Refill Request Start: 12-06-2023 End: 12-08-2023 Home visit Herminia Case MD Work Phone: [facility] Comment on above: Osteoporotic vertebr al collapse, with routine healing, subsequent encounter (Primary Dx) Start: 12-06-2023 End: 12-06-2023 Telephone encounter Herminia Case MD Work Phone: [facility] Comment on above: Orders Start: 11-28-2023 End: 11-28-2023 Refill Melva Juárez PA-C Work Phone: [facility] Comment on above: Refill Request Start: 11-14-2023 End: 11-15-2023 Telephone encounter Herminia Case MD Work Phone: [facility] Comment on above: Orders Refill Request Start: 11-12-2023 End: 11-12-2023 Refill Melva Juárez PA-C Work Phone: [facility] Comment on above: Refill Request Start: 11-02-2023 Refill Brando leblanc MD Work Phone: [facility] Comment on above: Refill Request Start: 10-28-2023 Telephone encounter Herminia warner MD Work Phone: [facility] Comment on above: Orders Start: 10-22-2023 Telephone encounter Herminia warner MD Work Phone: [address] [place] [address] Comment on above: Patient Update Start: 10-18-2023 Telephone encounter Herminia warner MD Work Phone: [facility] Comment on above: Orders Start: 10-16-2023 End: 10-16-2023 Emergency department patient visit Herminia Case MD Work Phone: [facility] ED Comment on above: Fall, initial encoun ter (Primary Dx); Compression fracture of body of thoracic vertebra (HCC) Start: 10-11-2023 Home visit Herminia Mccurdy Work Phone: [facility] Comment on above: Osteoporotic vertebr al collapse, with routine healing, subsequent encounter (Primary Dx) Start: 10-10-2023 Telephone encounter Herminia warner MD Work Phone: [facility] Comment on above: Orders Start: 10-06-2023 Home visit Herminia Mccurdy Work Phone: [facility] Comment on above: Pathological fractur e of vertebra due to other osteoporosis with routine healing, subsequent encounter (Primary Dx) Start: 10-06-2023 Telephone encounter Herminia warner MD Work Phone: [facility] Comment on above: Home Care (Physical therapy delayed 1 week) Start: 10-06-2023 Unlisted evaluation and management service Herminia Case MD Work Phone: [facility] Comment on above: OPENED IN ERROR (Mariam phillip Dx) Start: 09-21-2023 Telephone encounter Herminia warner MD Work Phone: [facility] Comment on above: Patient Update Start: 09-19-2023 End: 09-22-2023 Evaluation and management of inpatient Jono Weathers MD Work Phone: [facility] Cardiac Progressive Care Unit PCU 2E Comment on above: Near syncope (Primar y Dx); Closed head injury, initial encounter; Fall, initial encounter; Compression fracture of T5 vertebra, initial encounter (HCC); Compression fracture of T7 vertebra, initial encounter (HCC); Compression fracture of T8 vertebra, initial encounter (HCC); Compression fracture of L1 vertebra, initial encounter (HCC) Start: 09-16-2023 Refill Herminia Mccurdy Work Phone: [facility] Comment on above: Refill Request Start: 09-15-2023 Refill Herminia Mccurdy Work Phone: [facility] Comment on above: Refill Request Start: 09-14-2023 Refill Melva balderas PA-C Work Phone: [facility] Comment on above: Refill Request Start: 09-08-2023 End: 09-08-2023 ambulatory HERMINIA CASE Facility:[facility] Start: 09-08-2023 End: 09-08-2023 Patient encounter procedure Barbi Goldberg MD Work Phone: [facility] Comment on above: Herpes zoster withou t complication (Primary Dx) Start: 09-06-2023 Telephone encounter Herminia warner MD Work Phone: [facility] Comment on above: [facility] Communica [facility] ) Start: 08-20-2023 Refill Herminia Mccurdy Work Phone: [facility] Comment on above: Refill Request Start: 08-07-2023 End: 08-07-2023 Emergency department patient visit Herminia Case MD Work Phone: [facility] ED Comment on above: Bronchitis (Primary Dx); COPD exacerbation (HCC) Start: 08-05-2023 Refill Herminia Mccurdy Work Phone: [facility] Comment on above: Refill Request Start: 07-22-2023 Refill Herminia Mccurdy Work Phone: [facility] Comment on above: Refill Request Start: 07-20-2023 Refill Melva balderas PA-C Work Phone: [facility] Comment on above: Refill Request Start: 07-05-2023 ambulatory Herminia Mccurdy Work Phone: [facility] [place] Start: 07-04-2023 Refill Gena Michaels APRN.CARD PLACER Work Phone: [facility] Comment on above: Refill Request Start: 07-03-2023 Refill Gena Michaels APRN.CARD PLACER Work Phone: [facility] Comment on above: Refill Request Start: 06-30-2023 Telephone encounter Herminia warner MD Work Phone: [facility] Comment on above: Medication Problem Start: 06-28-2023 ambulatory Herminia Case M D Work Phone: [facility] Comment on above: Breo Start: 06-25-2023 Refill Herminia Mccurdy Work Phone: [facility] Comment on above: Refill Request Start: 06-24-2023 Refill Herminia Case M Hetal Work Phone: [facility] Comment on above: Refill Request Start: 06-22-2023 ambulatory Herminia Mccurdy Work Phone: [facility] [place] Start: 06-10-2023 Refill Herminia Mccurdy Work Phone: [facility] Comment on above: Refill Request Start: 06-10-2023 End: 06-10-2023 [facility] Herminia Case MD Work Phone: [facility] Comment on above: Moderate episode of recurrent major depressive disorder (HCC) (Primary Dx); Panlobular emphysema (HCC); Chronic respiratory failure with hypoxia (HCC) Start: 05-26-2023 Refill Herminia Mccurdy Work Phone: [facility] Comment on above: Refill Request Start: 05-25-2023 Telephone encounter Herminia warner MD Work Phone: [facility] Comment on above: Orders Start: 05-20-2023 End: 05-20-2023 [facility] Ugo Case MD Work Phone: [facility] Comment on above: Moderate episode of recurrent major depressive disorder (HCC) (Primary Dx); Panlobular emphysema (HCC) Start: 05-19-2023 Telephone encounter Herminia warner MD Work Phone: [facility] Comment on above: Orders Start: 05-18-2023 Home visit Herminia Mccurdy Work Phone: [facility] Comment on above: Age-related osteopor osis with current pathological fracture of left femur, initial encounter (HCC) (Primary Dx) Start: 05-18-2023 Telephone encounter Herminia warner MD Work Phone: [facility] Comment on above: Orders Start: 05-09-2023 Telephone encounter Herminia warner MD Work Phone: [facility] Comment on above: Orders Start: 05-02-2023 End: 05-02-2023 Patient encounter procedure Herminia Case MD Work Phone: [facility] Comment on above: PAUL (generalized anx iety disorder) (Primary Dx); Medication monitoring encounter; Compression fracture of body of thoracic vertebra (HCC); Other closed nondisplaced fracture of proximal end of right humerus with routine healing, subsequent encounter; Chronic respiratory failure with hypoxia (HCC); Panlobular emphysema (HCC); Moderate episode of recurrent major depressive disorder (HCC) Start: 04-29-2023 Telephone encounter Herminia warner MD Work Phone: [facility] Comment on above: Medication Problem Start: 04-27-2023 ambulatory Herminia Mccurdy Work Phone: [facility] Comment on above: Panic attacks Start: 04-21-2023 Telephone encounter Kisha mccurdy SPRAYING MACHINE OPERATOR - CARD PLACER Work Phone: [facility] Gynecologic Oncology Start: 04-19-2023 Telephone encounter Herminia warner MD Work Phone: [facility] Comment on above: Orders Start: 03-07-2023 Refill Herminia Mccurdy Work Phone: [facility] Comment on above: Refill Request Start: 02-13-2023 End: 02-18-2023 Evaluation and management of inpatient Lorenzo Orozco MD Work Phone: [facility] Comment on above: Lumbar compression f racture, closed, initial encounter (HCC) (Primary Dx); Fall, initial encounter; Multiple falls; Nondisplaced fracture of neck of left femur (HCC) Start: 02-07-2023 Refill Melva balderas PA-C Work Phone: [facility] Comment on above: Refill Request Start: 02-07-2023 Telephone encounter Herminia warner MD Work Phone: [facility] Comment on above: Orders Start: 02-01-2023 ambulatory Agustina Romero [place] [facility] [place] Comment on above: Population Health Na vigation Outreach (/Cologuard reminder ) Start: 01-31-2023 Telephone encounter Herminia warner MD Work Phone: [facility] Comment on above: Orders Start: 01-27-2023 ambulatory Jo mariscal [place] [facility] [place] Comment on above: Population Health Na vigation Outreach (ACO CARE GAP) Start: 01-24-2023 Telephone encounter Herminia warner MD Work Phone: [facility] Comment on above: Orders Start: 01-21-2023 Telephone encounter Herminia warner MD Work Phone: [facility] Comment on above: Orders Start: 01-17-2023 Telephone encounter Herminia warner MD Work Phone: [facility] Comment on above: Orders Start: 01-14-2023 End: 01-14-2023 Patient encounter procedure Herminia Case MD Work Phone: [facility] Comment on above: Compression fracture of body [...] Telephone encounter Herminia warner MD Work Phone: [facility] Comment on above: appointment cancella tion Start: 01-05-2023 Telephone encounter Herminia warner MD Work Phone: [facility] Comment on above: Missed Appointment Start: 12-30-2022 Telephone encounter Herminia warner MD Work Phone: [facility] Comment on above: Orders Start: 12-28-2022 Telephone encounter Herminia warner MD Work Phone: [facility] Comment on above: Orders Start: 12-22-2022 Telephone encounter Herminia warner MD Work Phone: [facility] Comment on above: Orders Start: 12-16-2022 Refill Herminia Mccurdy Work Phone: [facility] Comment on above: Refill Request Start: 12-10-2022 Refill Melva E Free [place] PA-C Work Phone: [facility] Comment on above: Refill Request Start: 12-09-2022 ambulatory Melva E Free [place] PA-C Work Phone: [facility] Comment on above: cologuard (cologuard ) Start: 12-09-2022 Telephone encounter Herminia warner MD Work Phone: [facility] Comment on above: Orders Start: 12-07-2022 Home visit Herminia Mccurdy Work Phone: [facility] Comment on above: Age-related osteopor osis with current pathological fracture of left femur with routine healing (Primary Dx) Start: 12-07-2022 Telephone encounter Herminia warner MD Work Phone: [facility] Comment on above: Orders Start: 11-29-2022 Telephone encounter Herminia warner MD Work Phone: [facility] Comment on above: Home Care Start: 11-22-2022 Refill Melva E Free land PA-C Work Phone: [facility] Comment on above: Refill Request Start: 2022 Refill Herminia Mccurdy Work Phone: [facility] Comment on above: Refill Request Start: 11-17-2022 Refill Brando leblanc MD Work Phone: [facility] Comment on above: Refill Request Start: 11-15-2022 Refill Herminia Mccurdy Work Phone: [facility] Comment on above: Refill Request Start: 11-07-2022 ambulatory Herminia Mcucrdy Work Phone: [facility] Comment on above: Renewals for my Breo and Flonase Start: 11-06-2022 End: 11-08-2022 Evaluation and management of inpatient Austyn Mccann DO Work Phone: [facility] Comment on above: Closed displaced int ertrochanteric fracture of left femur, initial encounter (HCC) (Primary Dx) Start: 10-27-2022 Telephone encounter Kisha mccurdy SPRAYING MACHINE OPERATOR - CARD PLACER Work Phone: [facility] Start: 10-22-2022 Refill Herminia Mccurdy Work Phone: [facility] Comment on above: Refill Request Start: 10-21-2022 Refill Herminia Mccurdy Work Phone: [facility] Comment on above: Refill Request Start: 10-20-2022 End: 10-20-2022 Office outpatient visit 25 minutes Kisha Pepe SPRAYING MACHINE OPERATOR - CARD PLACER Work Phone: [facility] On[facility] Comment on above: 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); Encounter for screening mammogram for malignant neoplasm of breast Start: 10-15-2022 Refill Jessica warner SPRAYING MACHINE OPERATOR.CARD PLACER Work Phone: [facility] Comment on above: Refill Request Start: 09-15-2022 End: 09-15-2022 Patient encounter procedure Melva Sandoval PA-C Work Phone: [facility] Comment on above: Panlobular emphysema (HCC) (Primary Dx); COPD (chronic obstructive pulmonary disease) with acute bronchitis (HCC); Hyperlipidemia, mixed; Medication monitoring encounter; Screening for colon cancer; Medication management; Chronic midline low back pain without sciatica; DDD (degenerative disc disease), lumbar; Major depression, recurrent, chronic (HCC) Start: 08-17-2022 ambulatory Herminia Mccurdy Work Phone: [facility] Start: 07-29-2022 Refill Herminia Mccurdy Work Phone: [facility] Comment on above: Refill Request Start: 07-27-2022 Refill Hemrinia Mccurdy Work Phone: [facility] Comment on above: Refill Request Start: 07-14-2022 ambulatory Herminia Mccurdy Work Phone: [facility] Start: 07-02-2022 Telephone encounter Herminia warner MD Work Phone: [facility] Comment on above: Patient Update (Rupinder wilsoned her home OT visit today due to illness ) Start: 07-01-2022 Telephone encounter Herminia warner MD Work Phone: [facility] Comment on above: Orders Start: 06-30-2022 Telephone encounter Herminia warner MD Work Phone: [facility] Comment on above: Medication Problem; Patient Update Start: 06-22-2022 ambulatory Herminia Mccurdy Work Phone: [facility] Comment on above: Sinus Problem Start: 06-22-2022 Refill Melva lovell PA-C Work Phone: [facility] Comment on above: Med Change Request Start: 06-22-2022 Telephone encounter Herminia warner MD Work Phone: [facility] Comment on above: Orders Start: 06-14-2022 Telephone encounter Herminia warner MD Work Phone: [facility] Comment on above: Orders Start: 06-03-2022 End: 06-03-2022 ambulatory Herminia Case MD Work Phone: [facility] Comment on above: Other closed nondisp laced [...] with patient Herminia Case MD Work Phone: [facility] Start: 06-01-2022 Telephone encounter Herminia warner MD Work Phone: [facility] Comment on above: Orders Start: 05-31-2022 Telephone encounter Herminia warner MD Work Phone: [facility] Comment on above: Home Care Management Start: 05-21-2022 End: 05-24-2022 Emergency department patient visit Martha Flores MD Work Phone: [facility] Comment on above: Fall, initial encoun ter (Primary Dx); Facial laceration, initial encounter; Closed fracture of neck of right humerus, initial encounter; Humeral head fracture, right, closed, initial encounter Start: 05-06-2022 Refill Donovan montes MD Work Phone: [facility] Comment on above: Refill Request Start: 04-21-2022 End: 04-21-2022 Office outpatient visit 15 minutes Sally Rocha APRN - CARD PLACER Work Phone: [facility] DR[facility] Oncology Comment on above: 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) Start: 04-19-2022 Refill Herminia Mccurdy Work Phone: [facility] Comment on above: Refill Request Start: 04-07-2022 Refill Herminia Mccurdy Work Phone: [facility] Comment on above: Refill Request Start: 04-06-2022 ambulatory Jo Phillips ach MA [facility] [place] Comment on above: Population Health Na vigation Outreach (OSIEL [place]) Start: 03-08-2022 Refill Melva Balderas Maicol lovell PA-C Work Phone: [facility] Comment on above: Refill Request Start: 03-05-2022 End: 03-05-2022 ambulatory Melva Balderas Ladonna PA-C Work Phone: [facility] Comment on above: COPD (chronic obstru ctive pulmonary disease) with acute bronchitis (HCC) (Primary Dx); DDD (degenerative disc disease), lumbar; Major depression, recurrent, chronic (HCC) Start: 03-05-2022 End: 03-05-2022 Telemedicine consultation with patient Melva Balderas Ladonna PA-C Work Phone: [facility] Start: 03-05-2022 Telephone encounter Melva E Ladonna PA-C Work Phone: [facility] Comment on above: Appointment Start: 03-03-2022 Telephone encounter Herminia warner MD Work Phone: [facility] Comment on above: Orders Start: 02-16-2022 ambulatory Herminia Mccurdy Work Phone: [facility] Start: 02-08-2022 ambulatory Herminia Mccurdy Work Phone: [facility] Comment on above: Muscle relaxer Refill Request Start: 02-01-2022 ambulatory Herminia Mccurdy Work Phone: [facility] Comment on above: Nurse Triage Call Start: 01-29-2022 ambulatory Macarena leblanc SPRAYING MACHINE OPERATOR.CARD PLACER Work Phone: [facility] Comment on above: Other acute sinusiti s, recurrence not specified (Primary Dx) Start: 01-13-2022 Refill Herminia Mccurdy Work Phone: [facility] Comment on above: Refill Request Start: 12-09-2021 ambulatory Herminia Case [facility] Start: 12-08-2021 ambulatory Herminia Mccurdy Work Phone: [facility] Comment on above: Breo Start: 11-26-2021 Refill Herminia Mccurdy Work Phone: [facility] Comment on above: Refill Request Start: 10-27-2021 Refill Melva lovell PA-C Work Phone: [facility] Comment on above: Refill Request Start: 10-18-2021 Refill Herminia Mccurdy Work Phone: [facility] Comment on above: Refill Request Start: 10-14-2021 ambulatory Herminia Case [facility] Start: 10-14-2021 End: 10-14-2021 Subsequent hospital visit by physician Ziyad Menendez MD Work Phone: [facility] Med [facility] Comment on above: 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); Abnormal chest CT; Other specified complication of vascular prosthetic devices, implants and grafts, initial encounter (HCC); Poor venous access Malignant neoplasm o f exocervix (HCC); Abnormal findings on diagnostic imaging of other specified body structures; Abnormal chest CT Start: 10-13-2021 Telephone encounter Herminia warner MD Work Phone: [facility] Comment on above: Orders ([facility]-Oxy gen order.) Start: 08-26-2021 Refill Jessica warner APRN.CNP Work Phone: [facility] Comment on above: Refill Request Start: 08-07-2021 Telephone encounter Herminia warner MD Work Phone: [facility] Comment on above: Patient Question Start: 08-06-2021 End: 08-06-2021 Patient encounter procedure Herminia Case MD Work Phone: [facility] Comment on above: Panlobular emphysema (HCC) (Primary [...] Telephone encounter Herminia warner MD Work Phone: [facility] Comment on above: Orders ([facility] ) Start: 08-04-2021 ambulatory Herminia Case [facility] Start: 07-28-2021 Refill Jessica warner APRN.CNP Work Phone: [facility] [place] Comment on above: Refill Request Start: 07-01-2021 Refill Melva lovell PA-C Work Phone: [facility] Comment on above: Refill Request Start: 02-18-2021 ambulatory Herminia Case [facility] Start: 12-26-2020 ambulatory Herminia Case [facility] Start: 12-26-2020 End: 12-26-2020 Subsequent hospital visit by physician Ziyad Menendez MD Work Phone: [facility] Med [facility] Comment on above: 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); Poor venous access Malignant neoplasm o f exocervix (HCC); Lung nodule seen on imaging study Start: 10-16-2020 End: 10-16-2020 Emergency department patient visit Herminia Case MD Work Phone: [facility] ED Comment on above: Closed fracture of c occyx, initial encounter (HCC) (Primary Dx); Contusion of right elbow, initial encounter Start: 09-24-2020 End: 09-24-2020 Subsequent hospital visit by physician Ziyad Mennedez MD Work Phone: [facility] CT Scan Comment on above: Arrived Poor venous access ( Primary Dx); Malignant neoplasm of exocervix (HCC) Start: 06-09-2020 End: 06-09-2020 Subsequent hospital visit by physician Ziyad Menendez Work Phone: [facility] Comment on above: 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); Poor venous access Start: 06-06-2020 End: 03-19-2021 Subsequent hospital visit by physician Ziyad Menendez Work Phone: [facility] CT Scan Comment on above: Abnormal findings on diagnostic imaging of other specified body structures; Abnormal CT of the chest Start: 03-16-2020 End: 03-16-2020 Emergency department patient visit Tani Joseph Work Phone: [facility] ED Comment on above: COPD exacerbation (H CC) (Primary Dx); Bronchitis Start: 03-10-2020 End: 03-10-2020 Subsequent hospital visit by physician Ziyad Menendez Work Phone: [facility] CT Scan Comment on above: Malignant neoplasm [...] visit by physician Ziyad Menendez Work Phone: [facility] Comment on above: Poor venous access [...] visit by physician Ziyad Menendez Work Phone: [facility] Comment on above: Poor venous access [...] visit by physician Burke Diezer Work Phone: [facility] Start: 12-26-2019 End: 12-26-2019 Subsequent hospital visit by physician Burke Diezer Work Phone: [facility] Start: 12-26-2019 End: 12-26-2019 Subsequent hospital visit by physician Burke Washburn Work Phone: [facility] Rad Onc Start: 12-19-2019 End: 12-20-2019 Subsequent hospital visit by physician Ziyad Menendez Work Phone: [facility] Cath & IR Lab Comment on above: Malignant neoplasm o f exocervix (HCC) Start: 12-11-2019 End: 12-11-2019 Subsequent hospital visit by physician Burke Washburn Work Phone: [facility] Rad Onc Start: 11-21-2019 End: 11-24-2019 Evaluation and management of inpatient Ray Barroso Work Phone: [facility] Comment on above: Right arm weakness ( Primary Dx); Pulmonary emphysema, unspecified emphysema type (HCC) Start: 11-10-2019 End: 11-10-2019 Subsequent hospital visit by physician Herminia Case Work Phone: [facility] Comment on above: Leg swelling Start: 11-10-2019 End: 11-10-2019 Subsequent hospital visit by physician Tani Joseph Work Phone: [facility] Ultrasound Start: 11-09-2019 End: 11-09-2019 Emergency department patient visit Tani Joseph Work Phone: [facility] Comment on above: Leg swelling (Primar y Dx) Start: 11-05-2019 End: 11-05-2019 Subsequent hospital visit by physician Ziyad Menendez Work Phone: [facility] Pre-Admit Testing Comment on above: Pre-op testing (Prim tom Dx) Start: 10-27-2019 End: 10-27-2019 Emergency department patient visit Ankit Zaragoza Work Phone: [facility] Comment on above: Compression fracture of L3 lumbar vertebra, sequela (Primary Dx); Acute exacerbation of chronic low back pain Start: 10-21-2019 End: 10-21-2019 Emergency department patient visit Jaspreet Otto Work Phone: [facility] Comment on above: Compression fracture of lumbar [...] by MILANA with non-probe detection Leann Cross SPRAYING MACHINE OPERATOR - CARD PLACER Work Phone: Start: 08-01-2024 Smr prim src gram/gi emsa stain bct fungi/cell Leann Cross SPRAYING MACHINE OPERATOR - CARD PLACER Work Phone: Start: 07-31-2024 Ct abdomen & pelvis w/contrast material Lauren Seran MD Work Phone: Start: 07-31-2024 Respiratory pathogen [...] Phone: Start: 11-07-2022 OXYGEN THERAPY Ray Mendez SPRAYING MACHINE OPERATOR - KERFER MACHINE OPERATOR Work Phone: Start: 11-07-2022 FL GUIDANCE OR USE O NLY - NON-RESULTABLE Andres Ventura MD Work Phone: Start: 11-07-2022 End: 11-07-2022 Prq skel fixj femoral fx prox end neck Andres Vetnura MD Work Phone: Start: 11-07-2022 End: 11-07-2022 [...] in Cervix by Cyto stain Kisha Pepe SPRAYING MACHINE OPERATOR - CARD PLACER Work Phone: Start: 09-15-2022 Blood count complete [...] spine lumbosac ral 2/3 views Lauren Perkinsner SPRAYING MACHINE OPERATOR - CARD PLACER Work Phone: Start: 09-24-2020 Ct thorax w/contrast [...] Source Comment:Blood Performed By: #### C /BLT ####[address] [id number] Start: 11-07-2019 H/O: hysterectomy S/P hysterectomy C venkat Rocha SPRAYING MACHINE OPERATOR - CARD PLACER Work Phone: Start: 11-06-2019 H/O: hysterectomy S/P hysterectomy S spike Menendez MD Work Phone: Start: 11-05-2019 Blood typing serologic abo Macarena Chakraborty Work Phone: Start: 10-27-2019 Assay of lipase Aknit castellon Work Phone: Start: 10-27-2019 Basic metabolic [...] Screening for malign ant neoplasm of cervix [facility] Start: 09-16-2027 Lipid 1996 panel - S soniya or Plasma Lipid Screening [facility] Start: 09-16-2027 Lipid panel Lipid Screening [facility] Start: 09-16-2027 LIPID SCREEN LIPID SCREEN [facility] Start: 08-09-2027 Diabetes Screening Diabetes Screenin [facility] Start: 07-31-2027 Diabetes Screening Diabetes Screenin [facility] Start: 04-27-2027 Diabetes Screening Diabetes Screenin g [facility] Start: 09-21-2026 Diabetes Screening Diabetes Screenin g [facility] Start: 08-08-2026 DTaP/Tdap/Td vaccine (2 - Td or Tdap) DTaP/Tdap/Td vaccine (2 - Td or Tdap) [facility] Start: 08-08-2026 DTaP/Tdap/Td vaccine (2 - Td) DTaP/Tdap/Td vaccine (2 - Td) [place], [place] Start: 08-08-2026 DTaP/Tdap/Td Vaccine s (2 - Td or Tdap) DTaP/Tdap/Td Vaccines (2 - Td or Tdap) [facility] Start: 08-08-2026 Urine microalbumin profile [facility] Start: 08-06-2026 Diabetes Screening Diabetes Screenin g [facility] Start: 02-18-2026 Diabetes Screening Diabetes Screenin g [facility] Start: 11-08-2025 Diabetes Screening Diabetes Screenin g [facility] Start: 10-20-2025 Screening for malign ant neoplasm of cervix Pap Smear [facility] Start: 09-15-2025 DIABETES SCREEN DIABETES SCREEN [facility] Start: 09-15-2025 Diabetes Screening Diabetes Screenin g [facility] Start: 07-30-2025 Annual PCP Team Document Review Attorney kyrie Disease Visit Annual PCP Team Chronic Disease Visit [facility] Start: 06-06-2025 Annual PCP Team Document Review Attorney kyrie Disease Visit Annual PCP Team Chronic Disease Visit [facility] Start: 05-02-2025 Annual PCP Team Document Review Attorney kyrie Disease Visit Annual PCP Team Chronic Disease Visit [facility] Start: 12-29-2024 Annual PCP Team Document Review Attorney kyrie Disease Visit Annual PCP Team Chronic Disease Visit [facility] Start: 12-04-2024 Subsequent hospital visit by physician 12/04/2024 7:45 AM EDT Hospital Encounter [facility] Pulmonary Function Lab [address] [place] [phone] Elyssa Tesfaye NP [address] [place], [place] [id number] [facility] Start: 11-26-2024 End: 11-26-2024 Patient encounter procedure 11/26/2024 1:30 PM EDT Office Visit [facility] Pulmonary and Sleep Medicine [facility] [address] [place] [address] Elyssa Tesfaye NP [address] [place], [place] [id number] [facility] Pulmonary [facility] Sleep Medicine [facility] Start: 11-20-2024 End: 11-20-2024 Patient encounter procedure 11/20/2024 3:[address] [facility] [address] [place] [address] Elyssa Tesfaye, LEONELA [address] [place] [address] [facility] [address] Start: 11-20-2024 End: 08-20-2025 CT Chest WO contrast [facility] Work Phone: Comment on above: Expected: 11/20/2024 , Expires: 08/20/2025 Once for 1 Occurrenc es starting 11/20/2024 until 11/20/2024 Start: 2024 COVID-19 Vaccine ( season) COVID-19 Vaccine ( season) [facility] Start: 2024 Influenza vaccination [facility] Start: 10-24-2024 End: 10-24-2024 Patient encounter procedure 10/24/2024 10:[address] [facility] [address] [place] [phone] Elyssa Tesfaye NP [address] [place] [address] [facility] Start: 10-18-2024 End: 10-18-2024 ambulatory 10/18/2024 3:30 PM EDT Infusion [facility] [address] [place] [phone] Ziyad Menendez MD [address] [place] [address] [facility] Start: 10-15-2024 Screening for malign ant neoplasm of lung Lung Cancer Screening [facility] Start: 10-11-2024 HPV TESTING HPV TESTING [facility] Start: 10-11-2024 PAP TESTING PAP TESTING [facility] Start: 09-24-2024 End: 09-24-2024 Patient encounter procedure 09/24/2024 10:00 AM EDT Office Visit [facility] Gynecologic Oncology - Abie [address] [place] [phone] Radha Orellana, DB - CARD PLACER [address] [place] [address] [facility] Gynecologic Oncology - Abie Start: 09-17-2024 Screening for malign ant neoplasm of cervix [facility] Start: 09-07-2024 Annual PCP Team Document Review Attorney kyrie Disease Visit Annual PCP Team Chronic Disease Visit [facility] Start: 09-04-2024 End: 09-04-2024 ambulatory 09/04/2024 2:30 PM EDT Infusion [facility] [address] [place] [address] [facility] Start: 08-20-2024 End: 08-20-2025 Complete PFT pre and post bronchodilator with FENO Complete PFT pre and post bronchodilator with FENO PFT Routine Chronic obstructive pulmonary disease with acute lower respiratory infection (HCC) Centrilobular emphysema (HCC) Expected: 08/20/2024 (Approximate), Expires: 08/20/2025 [facility] Comment on above: Expected: 08/20/2024 (Approximate), Expires: 08/20/2025 Start: 08-20-2024 End: 08-20-2024 Patient encounter procedure 08/20/2024 10:30 AM EDT Office Visit [facility] Pulmonary and Sleep Medicine [facility] [address] [place] [address] Elyssa Tesfaye NP [address] [place] [address] [facility] Pulmonary and Sleep Medicine [facility] Start: 07-30-2024 End: 07-30-2024 Patient encounter procedure 07/30/2024 3:00 PM EDT Office Visit [facility] [place] [address] [address] Herminia Case MD [address] [place] [address] back pain [facility] [place] Comment on above: back pain Start: 06-30-2024 End: 09-29-2024 CBC W Auto Differential panel - Blood COMPLETE BLOOD COUNT AND DIFFERENTIAL Lab Routine Hyperlipidemia, mixed Expected: 06/30/2024 (Approximate), Expires: 09/29/2024 [facility] Comment on above: Expected: 06/30/2024 (Approximate), Expires: 09/29/2024 Start: 06-30-2024 End: 09-29-2024 Hemoglobin A1c in Blood HEMOGLOBIN A1C Lab Routine Hyperglycemia Expected: 06/30/2024 (Approximate), Expires: 09/29/2024 [facility] Work Phone: Comment on above: Expected: 06/30/2024 (Approximate), Expires: 09/29/2024 Start: 06-30-2024 End: 09-29-2024 Hepatic function 2000 panel - Serum or Plasma HEPATIC FUNCTION PNL Lab Routine Hyperlipidemia, mixed Expected: 06/30/2024 (Approximate), Expires: 09/29/2024 [facility] Comment on above: Expected: 06/30/2024 (Approximate), Expires: 09/29/2024 Start: 06-30-2024 End: 09-29-2024 Lipid 1996 panel - Serum or Plasma LIPID PANEL BASIC Lab Routine Hyperlipidemia, mixed Expected: 06/30/2024 (Approximate), Expires: 09/29/2024 [facility] Comment on above: Expected: 06/30/2024 (Approximate), Expires: 09/29/2024 Start: 06-09-2024 Annual PCP Team Document Review Attorney kyrie Disease Visit Annual PCP Team Chronic Disease Visit [facility] Start: 06-06-2024 End: 06-06-2024 ambulatory [facility]/06[facility]24 [facility] [place] [address] [address] Herminia Case MD [address] [place] [address] discuss assisted living/halfway [facility] [place] Comment on above: discuss assisted raul ing/halfway Start: 05-19-2024 Annual PCP Team Document Review Attorney kyrie Disease Visit Annual PCP Team Chronic Disease Visit [facility] Start: 05-02-2024 Annual PCP Team Document Review Attorney kyrie Disease Visit Annual PCP Team Chronic Disease Visit [facility] Start: 03-22-2024 Depression Monitoring Depression [facility] Start: 03-21-2024 Advance Directive Discussion Advance Directive Discussion [facility] Start: 03-21-2024 Medicare Advantage Annual Wellness Visit Medicare Advantage Annual Wellness Visit [facility] Start: 03-11-2024 Annual PCP Team Document Review Attorney kyrie Disease Visit Annual PCP Team Chronic Disease Visit [facility] Start: 01-15-2024 Annual PCP Team Document Review Attorney kyrie Disease Visit Annual PCP Team Chronic Disease Visit [facility] Start: 12-08-2023 LIPID SCREEN LIPID SCREEN [facility] Start: 11-20-2023 Covid-19 Vaccine ( season) Covid-19 Vaccine () [facility] Start: 11-20-2023 Covid-19 Vaccine () Covid-19 Vaccine () [facility] Start: 11-20-2023 Influenza vaccination [facility] Start: 09-18-2023 Influenza vaccination Influenza Vacc ine (#1) [facility] Comment on above: Postponed from 11/19 (Declined at this time) Start: 09-16-2023 ANNUAL PCP TEAM FOUNDRY ENGINEER KYRIE DISEASE VISIT ANNUAL PCP TEAM CHRONIC DISEASE VISIT [facility] Start: 09-16-2023 Zoledronic acid therapy ALPHA- 1 ANTITRYPSIN DEFICIENCY SCREENING [facility] Comment on above: Postponed from 11/19 (Declined at this time) Start: 09-13-2023 DIABETES SCREEN DIABETES SCREEN [facility] Start: 09-08-2023 End: 09-08-2023 Patient encounter procedure 09/08/2023 3:20 PM EDT Office Visit [facility] [place] [address] [address] Barbi Goldberg MD [address] [place] [address] [facility] Comment on above: [facility] Start: 08-24-2023 End: 08-24-2023 Follow-up encounter 08/24/2023 3:00 PM EDT [facility] [place] [address] [address] Melva Juárez, PA-C [address] [place] [address] Follow up visit [facility] Comment on above: Follow up visit Start: 08-16-2023 End: 08-16-2023 Patient encounter procedure 08/16/2023 10:00 AM EDT Office Visit [facility] [address] [address] Herminia Case MD [address] [place] [address] sick [facility] Comment on above: sick Start: 08-03-2023 End: 08-03-2023 Follow-up encounter 08/03/2023 11:20 AM EDT [facility] [address] [address] Herminia Case MD [address] [place] [address] Follow up [facility] Comment on above: Follow up Start: 07-22-2023 End: 07-22-2023 Follow-up encounter 07/22/2023 1:00 PM EDT [facility] [address] [address] Herminia Case MD [address] [place] [address] 6 week follow up-anxiety and depression [facility] Comment on above: 6 week follow up-anx iety and depression Start: 07-05-2023 End: 10-04-2023 Lipid 1996 panel - Serum or Plasma LIPID PANEL BASIC Lab Routine Medication management Expected: 07/05/2023, Expires: 10/04/2023 [facility] Work Phone: Comment on above: Expected: 07/05/2023 , Expires: 10/04/2023 Start: 06-04-2023 ANNUAL PCP TEAM FOUNDRY ENGINEER KYRIE DISEASE VISIT ANNUAL PCP TEAM CHRONIC DISEASE VISIT [facility] Start: 06-04-2023 COVID-19 VACCINE (#1) COVID-19 VACCI NE (#1) [facility] Comment on above: Postponed from 05/19 (Declined at this time) Start: 06-04-2023 SHINGRIX VACCINE (2 of 2) SHINGRIX VACCINE (2 of 2) [facility] Comment on above: Postponed from 12/05 (Declined at this time) Start: 05-02-2023 End: 08-01-2023 PAIN PANEL, UR QUANT [facility] Work Phone: Comment on above: Expected: 05/02/2023 , Expires: 08/01/2023 Start: 04-22-2023 End: 04-22-2023 Patient encounter procedure [facility] Gynecologic Oncology Start: 03-21-2023 Advance Directive Discussion Advance Directive Discussion [facility] Start: 03-21-2023 Medicare Advantage Annual Wellness Visit Medicare [facility] Annual Wellness Visit [facility] Start: 03-09-2023 End: 03-09-2023 Patient encounter procedure 03/09/2023 11:15 AM EST Office Visit [facility] [address] [place] [address] Freddy Person MD [address] [address] [facility] Start: 03-05-2023 ANNUAL PCP TEAM FOUNDRY ENGINEER KYRIE DISEASE VISIT ANNUAL PCP TEAM CHRONIC DISEASE VISIT [facility] Start: 11-20-2022 ANNUAL PCP TEAM FOUNDRY ENGINEER KYRIE DISEASE VISIT ANNUAL PCP TEAM CHRONIC DISEASE VISIT [facility] Start: 2022 Covid-19 Vaccine ( season) Covid-19 Vaccine ( season) [facility] Start: 2022 Influenza vaccination [facility] Start: 11-17-2022 End: 11-17-2022 Patient encounter procedure 11/17/2022 9:00 AM EDT Office Visit [facility] [address] [place] [address] Nabeel Tran MD [address] [place] [address] [facility] Start: 11-10-2022 End: 11-10-2022 Patient encounter procedure 11/10/2022 3:30 PM EDT Appointment [facility] [address] [place] [id number] Kisha Peep APRN - CARD PLACER [address] [facility] [place] [address] [facility] [address] [facility] Start: 10-27-2022 End: 10-27-2022 Patient encounter procedure 10/27/2022 10:40 AM EDT Office Visit [facility] [address] [place] [address] Nabeel Tran MD [address] [place] [address] [facility] Start: 10-24-2022 Screening for malign ant neoplasm of cervix Cervical cancer screen [place], [place] Start: 10-20-2022 End: 10-21-2023 CT Chest WO contrast CT chest wo IV contrast Imaging Routine Malignant neoplasm of exocervix (HCC) Expected: 10/20/2022, Expires: 10/21/2023 [facility] Work Phone: Comment on above: Expected: 10/20/2022 , Expires: 10/21/2023 Start: 10-20-2022 End: 12-21-2023 DBT Breast - bilateral screening Bilateral screening mammogram with tomosynthesis Imaging Routine Encounter for screening mammogram for malignant neoplasm of breast Expected: 10/20/2022, Expires: 12/21/2023 [facility] Comment on above: Expected: 10/20/2022 , Expires: 12/21/2023 Start: 10-20-2022 End: 10-20-2022 Patient encounter procedure 10/20/2022 Office Visit Gynecologic Oncology Kisha Pepe APRN - CARD PLACER [address] [facility] [place] [address] [facility]ie CAUL DRESSER Oncology Start: 10-14-2022 Influenza vaccination LUNG CANCER SC REENING [facility] Start: 10-14-2022 Screening for malign ant neoplasm of lung Lung Cancer Screening [facility] Start: 09-17-2022 Influenza vaccination INFLUENZA (#1) [facility] Comment on above: Postponed from 11/19 (Declined at this time) Start: 08-17-2022 End: 10-17-2022 Lipid 1996 panel - Serum or Plasma LIPID PANEL BASIC Lab Routine Medication management Expected: 08/17/2022, Expires: 10/17/2022 [facility] Work Phone: Comment on above: Expected: 08/17/2022 , Expires: 10/17/2022 Start: 08-06-2022 ANNUAL PCP TEAM FOUNDRY ENGINEER KYRIE DISEASE VISIT ANNUAL PCP TEAM CHRONIC DISEASE VISIT [facility] Start: 05-06-2022 ANNUAL PCP TEAM FOUNDRY ENGINEER KYRIE DISEASE VISIT ANNUAL PCP TEAM CHRONIC DISEASE VISIT [facility] Start: 03-21-2022 ADVANCE DIRECTIVE DISCUSSION ADVANCE DIRECTIVE DISCUSSION [facility] Start: 03-17-2022 End: 03-17-2022 Patient encounter procedure 03/17/2022 Office Visit Gynecologic Oncology Ziyad Menendez MD [address] [facility] [address] [place] [address] [facility] CAUL DRESSER Oncology Start: 03-11-2022 Pneumococcal 0-64 ye ars Vaccine (2 of 2 - PPSV23) Pneumococcal 0-64 years Vaccine (2 of 2 - PPSV23) [facility] Work Phone: Start: 03-11-2022 Pneumococcal 0-64 ye ars Vaccine (2 of 4 - PPSV23) Pneumococcal 0-64 years Vaccine (2 of 4 - PPSV23) [facility] Work Phone: Start: 02-16-2022 End: 04-18-2022 CBC panel - Blood by Automated count CBC Lab Routine Medication management Expected: 02/16/2022, Expires: 04/18/2022 [facility] Work Phone: Comment on above: Expected: 02/16/2022 , Expires: 04/18/2022 Start: 02-16-2022 End: 04-18-2022 SCHEDULE LAB TESTING SCHEDULE LAB TESTING Lab Routine Expected: 02/16/2022, Expires: 04/18/2022 [facility] Work Phone: Comment on above: Expected: 02/16/2022 , Expires: 04/18/2022 Start: 12-26-2021 Influenza vaccination LUNG CANCER SC REENING [facility] Start: 12-09-2021 End: 12-09-2021 Patient encounter procedure 12/09/2021 Appointment Infusion Therapy [facility] Start: 2021 ADVANCE DIRECTIVE DISCUSSION ADVANCE DIRECTIVE DISCUSSION [facility] Start: 2021 BONE DENSITY BONE DENSITY [facility] Start: 2021 Bone Density Screening Bone Density Screening [facility] Start: 2021 Influenza vaccination [facility] Start: 2021 Screening for osteoporosis Bone Density Screening [facility] Start: 10-27-2021 End: 12-27-2021 CBC panel - Blood by Automated count CBC Lab Routine Medication management Expected: 10/27/2021, Expires: 12/27/2021 [facility] Work Phone: Comment on above: Expected: 10/27/2021 , Expires: 12/27/2021 Start: 10-27-2021 End: 12-27-2021 SCHEDULE LAB TESTING SCHEDULE LAB TESTING Lab Routine Expected: 10/27/2021, Expires: 12/27/2021 [facility] Work Phone: Comment on above: Expected: 10/27/2021 , Expires: 12/27/2021 Start: 09-24-2021 Screening for malign ant neoplasm of lung Low dose CT lung screening [facility] Work Phone: Start: 09-15-2021 COLORECTAL CANCER SCREENING COLORECTAL CANCER SCREENING [facility] Comment on above: Postponed from 11/19 (Declined at this time) Start: 09-15-2021 COVID-19 VACCINE (#1) COVID-19 VACCI NE (#1) [facility] Comment on above: Postponed from 11/19 (Declined at this time) Start: 09-15-2021 COVID-19 VACCINE (1) COVID-19 VACCIN E (1) [facility] Comment on above: Postponed from 11/19 (Declined at this time) Start: 09-15-2021 SHINGRIX VACCINE (2 of 2) SHINGRIX VACCINE (2 of 2) [facility] Comment on above: Postponed from 12/05 (Declined at this time) Start: 08-06-2021 End: 10-06-2021 CBC W Auto Differential panel - Blood CBC + DIFF Lab Routine Panlobular emphysema (HCC) Chronic respiratory failure with hypoxia (HCC) Expected: 08/06/2021, Expires: 10/06/2021 [facility] Work Phone: Comment on above: Expected: 08/06/2021 , Expires: 10/06/2021 Start: 08-06-2021 End: 10-06-2021 Comprehensive metabolic 2000 panel - Serum or Plasma COMP METABOLIC PANEL Lab Routine Panlobular emphysema (HCC) Chronic respiratory failure with hypoxia (HCC) Expected: 08/06/2021, Expires: 10/06/2021 [facility] Work Phone: Comment on above: Expected: 08/06/2021 , Expires: 10/06/2021 Start: 08-06-2021 End: 10-06-2021 LIPID PANEL BASIC LIPID PANEL BASIC Lab Routine Screening for lipid disorders Expected: 08/06/2021, Expires: 10/06/2021 [facility] Work Phone: Comment on above: Expected: 08/06/2021 , Expires: 10/06/2021 Start: 08-06-2021 End: 10-06-2021 PAIN PANEL, UR QUANT PAIN PANEL, UR QUANT Lab Routine Medication monitoring encounter Expected: 08/06/2021, Expires: 10/06/2021 [facility] Work Phone: Comment on above: Expected: 08/06/2021 , Expires: 10/06/2021 Start: 08-06-2021 End: 10-06-2021 VITAMIN D 25 HYDROXY VITAMIN D 25 HYDROXY Lab Routine Vitamin D deficiency Expected: 08/06/2021, Expires: 10/06/2021 [facility] Work Phone: Comment on above: Expected: 08/06/2021 , Expires: 10/06/2021 Start: 06-06-2021 Screening for malign ant neoplasm of lung Low dose CT lung screening [facility] Work Phone: Start: 02-06-2021 End: 02-06-2021 Patient encounter procedure 02/06/2021 Appointment [facility]fusion Therapy [facility] Start: 11-23-2020 [facility] Start: 11-21-2020 Lipid panel [facility] Start: 2020 Influenza vaccination Flu vaccine (# 1) [facility] Work Phone: Start: 10-13-2020 End: 10-13-2020 Office Visit [facility] CAUL DRESSER Oncology Start: 08-08-2020 End: 08-08-2020 Appointment 08/08/2020 Appointment Infusion Therapy [facility] Start: 07-01-2020 End: 07-01-2020 Telemedicine 07/01/2020 Telemedicine Cardiology Nell Padilla MD [address] [address] [phone] [facility] Start: 06-13-2020 End: 06-13-2020 Appointment 06/13/2020 Appointment [facility]fusion Therapy [facility] Start: 06-09-2020 End: 06-09-2020 Office Visit 06/09/2020 Office Visit Gynecologic Oncology Ziyad Menendez MD [address] [facility] [place] [address] [phone] [facility] CAUL DRESSER Oncology Start: 04-15-2020 [facility] Start: 03-28-2020 End: 03-28-2020 Virtual Visit 03/28/2020 Virtual Visit Palliative Care David Pollack, [address] [facility] [address] [place] [id number] [facility] Start: 03-17-2020 End: 03-17-2020 Office Visit [facility]ie CAUL DRESSER Oncology Comment on above: 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) Start: 03-10-2020 End: 03-10-2020 Appointment 03/10/[address] [facility] [address] Scan Start: 02-22-2020 End: 02-22-2020 Appointment [facility] Start: 02-21-2020 End: 02-21-2020 Office Visit [facility]ie CAUL DRESSER Oncology Start: 02-08-2020 End: 02-08-2020 Appointment [facility] Start: 02-07-2020 End: 02-07-2020 Appointment 02/07/2020 Appointment Infusion Therapy [facility] Start: 02-01-2020 End: 02-01-2020 Appointment [facility] Start: 01-31-2020 End: 01-31-2020 [facility]ointment [facility] Start: 01-25-2020 End: 01-25-2020 Appointment [facility] Start: 01-24-2020 End: 01-24-2020 Appointment 01/24/2020 Appointment Infusion Therapy [facility] Start: 01-18-2020 End: 01-18-2020 Appointment 01/18/2020 Appointment Infusion Therapy [facility] Start: 01-17-2020 End: 01-17-2020 Appointment [facility] Start: 12-13-2019 End: 12-13-2019 Office Visit 12/13/2019 Office Visit Gynecologic Oncology Ziyad Menendez MD [address] [place] [address] [phone] [facility] CAUL DRESSER Oncology Start: 12-07-2019 End: 12-07-2019 Office Visit 12/07/2019 Office Visit Gynecologic Oncology Ziyad Menendez MD [address] [facility] [address] [place] [address] [facility]ie CAUL DRESSER Oncology Start: 12-06-2019 Shingles Vaccine (2 of 2) Shingles Vaccine (2 of 2) [facility] Start: 12-06-2019 SHINGRIX VACCINE (2 of 2) SHINGRIX VACCINE (2 of 2) [facility] Start: 12-06-2019 Zoster Vaccines (2 of 2) Zoster Vacc otto (2 of 2) [facility] Start: 11-22-2019 End: 11-22-2019 Office Visit 11/22/2019 Office Visit Gynecologic Oncology Ziyad Menendez MD [address] [place], [place] [id number] [facility] CAUL DRESSER Oncology Start: 11-20-2019 Influenza vaccination Flu vaccine (# 1) [place], [place] Start: 11-09-2019 End: 11-08-2020 US Lower Extremity Venous Right US Lower Extremity Venous Right Imaging Routine Leg swelling Expected: 11/09/2019, Expires: 11/08/2020 [place], [place] Comment on above: Expected: 11/09/2019 , Expires: 11/08/2020 Start: 11-06-2019 End: 11-06-2019 Appointment [facility] Start: 10-30-2019 End: 10-30-2019 Appointment 10/30/2019 Appointment Pre-Admission Testing Ziyad Menendez MD [address] [place], [place] [id number] [facility] Pre-Admit Testing Start: 10-25-2019 Annual Wellness Visi t (AWV) Annual Wellness Visit (AWV) [place], [place] Start: 10-25-2019 End: 10-25-2019 Office Visit 10/25/2019 Office Visit Gynecologic Oncology Ziyad Menendez MD [address] [facility] [address] [place], [place] [id number] [facility] Abie CAUL DRESSER Oncology Start: 10-18-2019 Screening for malign ant neoplasm of lung Low dose CT lung screening [place], [place] Start: 08-27-2019 Screening for malign ant neoplasm of breast Breast cancer screen [facility] Start: 12-10-2018 Screening for osteoporosis Bone Density Scan [facility] Start: 08-26-2018 Screening for malign ant neoplasm of breast [facility] Start: 03-11-2018 PNEUMOCOCCAL (2 - PCV) PNEUMOCOCCAL (2 - PCV) [facility] Start: 03-11-2018 Pneumococcal 0-64 ye ars Vaccine (2 - PCV) Pneumococcal 0-64 years Vaccine (2 - PCV) [facility] Start: 03-11-2018 Pneumococcal Vaccine : 50+ Years (2 of 2 - PCV) Pneumococcal Vaccine: 50+ Years (2 of 2 - PCV) [facility] Start: 03-11-2018 Pneumococcal Vaccine : 65+ (2 - PCV) Pneumococcal Vaccine: 65+ (2 - PCV) [facility] Start: 03-11-2018 Pneumococcal Vaccine : 65+ Years (2 - PCV) Pneumococcal Vaccine: 65+ Years (2 - PCV) [facility] Start: 03-11-2018 Pneumococcal Vaccine : 65+ Years (2 of 2 - PCV) Pneumococcal Vaccine: 65+ Years (2 of 2 - PCV) [facility] Start: 03-11-2018 PNEUMOCOCCAL: 65+ (2 - PCV) PNEUMOCOCCAL: 65+ (2 - PCV) [facility] Start: 2016 RSV Immunization age d 60 or older (1 - 1-dose 60+ series) RSV Immunization aged 60 or older (1 - 1-dose 60+ series) [facility] Start: 2016 RSV Immunization for Adults (1 - Risk 60-74 years 1-dose series) RSV Immunization for Adults (1 - Risk 60-74 years 1-dose series) [facility] Start: 2016 RSV Vaccine (1 - 1-d ose 60+ series) RSV Vaccine (1 - 1-dose 60+ series) [facility] Start: 2016 RSV Vaccine (1 - Ris k 60-74 years 1-dose series) RSV Vaccine (1 - Risk 60-74 years 1-dose series) [facility] Start: 04-15-2016 Lipid panel Lipid screen [place], [place] Start: 2006 Screening for malign ant neoplasm of colon Colon cancer screen colonoscopy [place], [place] Start: 2006 Screening for malign ant neoplasm of lung Low dose CT lung screening [facility] Start: 2006 Shingles Vaccine (1 of 2) Shingles Vaccine (1 of 2) [place] Start: 2001 COLOGUARD (FIT-DNA) COLOGUARD (FIT-D NA) [facility] Start: 2001 Colonoscopy COLONOSCOPY [facility] Start: 2001 COLORECTAL CANCER SCREENING COLORECTAL CANCER SCREENING [facility] Start: [address] COLONOGRAPHY [facility] Start: 2001 FECAL OCCULT BLOOD FECAL OCCULT BLOO D [facility] Start: 2001 Screening for malign ant neoplasm of colon [facility] Start: 2001 SIGMOIDOSCOPY [facility]OSCOPY [facility] Start: 1996 Mammography [facility] Start: 1996 Screening for malign ant neoplasm of breast [facility] Start: 1986 Screening for malign ant neoplasm of cervix [facility] Start: 1986 Zoledronic acid therapy ALPHA- 1 ANTITRYPSIN DEFICIENCY SCREENING [facility] Start: 1977 Screening for malign ant neoplasm of cervix [place], [place] Start: 1974 Hepatitis C screening Hepatitis C [facility] Start: 1972 COVID-19 Vaccine (1) COVID-19 Vaccin e (1) [facility] Work Phone: Start: 1968 COVID-19 Vaccine (1) COVID-19 Vaccin e (1) [facility] Work Phone: Start: 1968 Depression Monitoring Depression Mon itoring [facility] Start: 1968 Depresssion Monitoring Depresssion M onitoring [facility] Start: 1961 COVID-19 Vaccine (#1) COVID-19 Vacci ne (#1) [facility] Start: 05-19-1957 COVID-19 VACCINE (#1) COVID-19 VACCI NE (#1) [facility] Start: 1956 Annual wellness visit Medicare Initial Physical (IPPE) [facility] Start: 1956 Annual Wellness Visi t (AWV) Annual Wellness Visit (AWV) [facility] Start: 1956 Hepatitis B Vaccines (1 of 3 - 3-dose series) Hepatitis B Vaccines (1 of 3 - 3-dose series) [facility] Start: 1956 Medicare Advantage Annual Wellness Visit (AWV) Medicare Advantage Annual Wellness Visit (AWV) [facility] Start: 1956 Screening for malign ant neoplasm of colon [facility] Start: 1956 Screening for osteoporosis Bone Density Scan [facility] Bacteria identified in Blood by Culture [facility] Work Phone: Basic metabolic 2000 panel Basic Metabolic Panel Lab Routine Daily until discontinued starting 08/04/2019, 1 completed [facility] [place] Comment on above: Daily until disconti nued starting 08/04/2019, 1 completed Basic Metabolic Pane l w/ Reflex to MG Basic Metabolic Panel w/ Reflex to MG Lab Routine Daily until discontinued starting 11/23/2019, 2 completed [facility] [place] Comment on above: Daily until disconti nued starting 11/23/2019, 2 completed CBC Auto Differential [place], [place] Comment on above: Daily until disconti nued starting 08/04/2019, 1 completed Daily until disconti nued starting 11/23/2019, 2 completed End: 02-01-2020 CBC Auto Differential CBC Auto Differential Lab Routine Malignant neoplasm of exocervix (HCC) 1 Occurrences starting 02/01/2020 until 02/01/2020 [place], [place] Comment on above: 1 Occurrences starti ng 02/01/2020 until 02/01/2020 COLOGUARD COLOGUARD Lab Ro utine Screening for colon cancer Ordered: 09/15/2022 [facility] Work Phone: Comment on above: Ordered: 09/15/2022 End: 02-01-2020 Comprehensive metabolic 2000 panel Comprehensive Metabolic Panel Lab Routine Malignant neoplasm of exocervix (HCC) 1 Occurrences starting 02/01/2020 until 02/01/2020 [place] Comment on above: 1 Occurrences starti ng 02/01/2020 until 02/01/2020 End: 03-16-2020 COVID-19 COVID-19 Lab STAT One Time for 1 Occurrences starting 03/16/2020 until 03/16/2020 [facility] [place] Comment on above: One Time for 1 Occur rences starting 03/16/2020 until 03/16/2020 COVID-19 COVID-19 Lab STA T 03/16/2020 1:18 PM EST [place], [place] End: 06-09-2020 Creatinine [Mass/Vol] Creatinine, Serum Lab Routine Malignant neoplasm of exocervix (HCC) 1 Occurrences starting 06/09/2020 until 06/09/2020 [facility] Work Phone: Comment on above: 1 Occurrences starti ng 06/09/2020 until 06/09/2020 End: 03-10-2020 CT CHEST ABDOMEN PELVIS W CONTRAST CT CHEST ABDOMEN PELVIS W CONTRAST Imaging Routine Malignant neoplasm of exocervix (HCC) Lung nodule seen on imaging study 1 Occurrences starting 03/10/2020 until 03/10/2020 [place], [place] Comment on above: 1 Occurrences starti ng 03/10/2020 until 03/10/2020 CT CHEST ABDOMEN PEL VIS W CONTRAST CT CHEST ABDOMEN PELVIS W CONTRAST Imaging Routine Malignant neoplasm of exocervix (HCC) Lung nodule seen on imaging study 03/10/2020 1:23 PM EST [place], [place] End: 06-06-2020 CT Chest W Contrast [...] starting 10/14/2021 until 10/14/2021 Culture, Blood [facility] [place] [place] End: 03-16-2020 Culture, Blood 1 Culture, Blood 1 Microbiology STAT One Time for 1 Occurrences starting 03/16/2020 until 03/16/2020 [place], [place] Comment on above: One Time for 1 Occur rences starting 03/16/2020 until 03/16/2020 Culture, Blood 2 [facility] [place] [place] End: 03-16-2020 Culture, Blood 2 Culture, Blood 2 Microbiology STAT One Time for 1 Occurrences starting 03/16/2020 until 03/16/2020 [place], [place] Comment on above: One Time for 1 Occur rences starting 03/16/2020 until 03/16/2020 Culture, Respiratory Culture, Re spiratory Microbiology Routine 08/02/2019 11:55 PM EDT [place], [place] Cytology Cervical or vaginal smear or scraping study Pap Smear Pathology and Cytology Routine Malignant neoplasm of exocervix (HCC) 10/20/2022 2:32 PM EDT [facility] End: 06-21-2025 DBT Breast - bilateral screening PAOLO SCREENING W [facility] Radiology Routine Encounter for screening mammogram for breast cancer 1 Occurrences starting 05/22/2024 until 06/21/2025 [facility] Work Phone: Comment on above: 1 Occurrences starti ng 05/22/2024 until 06/21/2025 ECG 12 lead ECG 12 lead CV E CG STAT 05/21/2022 5:[address] [facility] Work Phone: ECG 12 lead ECG 12 lead CV E CG STAT 04/27/2024 11:[address] [facility] Work Phone: EKG 12 Lead - Chest Pain [place], [place] End: 08-04-2019 Home O2 eval (desaturation screen) Home O2 eval (desaturation screen) Respiratory Care Routine One Time for 1 Occurrences starting 08/04/2019 until 08/04/2019 [place], [place] Comment on above: One Time for 1 Occur rences starting 08/04/2019 until 08/04/2019 HPV High Risk PCR HPV High Risk PCR Microbiology Routine Malignant neoplasm of exocervix (HCC) 10/20/2022 2:32 PM T [facility] End: 02-01-2020 Magnesium [Mass/Vol] Magnesium Lab Routine Malignant neoplasm of exocervix (HCC) 1 Occurrences starting 02/01/2020 until 02/01/2020 [place], [place] Comment on above: 1 Occurrences starti ng 02/01/2020 until 02/01/2020 End: 08-13-2023 PAOLO SCREENING PAOLO SCREENING Radiology Routine Encounter for screening mammogram for breast cancer 1 Occurrences starting 07/14/2022 until 08/13/2023 [facility] Work Phone: Comment on above: 1 Occurrences starti ng 07/14/2022 until 08/13/2023 End: 09-05-2022 PAOLO SCREENING W CARON PAOLO SCREENING W CARON Radiology Routine Encounter for screening mammogram for malignant neoplasm of breast 1 Occurrences starting 08/06/2021 until 09/05/2022 [facility] Work Phone: Comment on above: 1 Occurrences starti ng 08/06/2021 until 09/05/2022 MDI Treatment MDI Treatment Respiratory Care Routine Every 6hr As Needed until discontinued [facility]02[facility]2019 [facility] on [facility]: Every 6hr As Needed until discontinued starting 08/02/2019 End: 07-21-2024 MG Breast Screening PAOLO SCREENING Radiology Routine Encounter for screening mammogram for breast cancer 1 Occurrences starting 06/22/2023 until 07/21/2024 [facility] Work Phone: Comment on above: 1 Occurrences starti ng 06/22/2023 until 07/21/2024 Nebulizer therapy HHN Treatment Respiratory Care Routine 0600, 1000, 1400, 1800, 2200 until discontinued starting 03/16/2020, 6 completed [facility] Comment on above: 0600, 1000, 1400, 18 00, 2200 until discontinued starting 03/16/2020, 6 completed Oxygen therapy [[facility]] [facility] Comment on above: Daily until disconti nued starting 11/21/2019, 2 completed Daily until disconti nued starting 11/21/2019 PAIN PANEL, UR QUANT PAIN PANEL, UR QUANT Lab Routine Medication monitoring encounter 05/02/2023 3:12 PM EST [facility] Work Phone: End: 08-02-2019 Respiratory Virus PCR Panel Respiratory Virus PCR Panel Microbiology Add-On One Time for 1 Occurrences starting 08/02/2019 until 08/02/2019 [facility] Comment on above: One Time for 1 Occur rences starting 08/02/2019 until 08/02/2019 SPECIMEN VALIDITY, URINE SPECIME N VALIDITY, URINE Lab Routine Medication monitoring encounter 05/02/2023 3:12 PM EST [facility] Work Phone: End: 06-09-2020 Urea nitrogen [Mass/Vol] BUN Lab Routine Malignant neoplasm of exocervix (HCC) 1 Occurrences starting 06/09/2020 until 06/09/2020 [facility] Work Phone: Comment on above: 1 Occurrences starti ng 06/09/2020 until 06/09/2020 End: 10-27-2019 Urinalysis Urinalysis Lab STAT One Time for 1 Occurrences starting 10/27/2019 until 10/27/2019 [place], [place] Comment on above: One Time for 1 Occur rences starting 10/27/2019 until 10/27/2019 End: 11-10-2019 US Lower Extremity Venous Right US Lower Extremity Venous Right Imaging Routine Leg swelling 1 Occurrences starting 11/10/2019 until 11/10/2019 [place], [place] Comment on above: 1 Occurrences starti ng 11/10/2019 until 11/10/2019 US Lower Extremity Venous Right US Lower Extremity Venous Right Imaging Routine Leg swelling 11/10/2019 6:00 PM EDT [facility] Immunizations Immunization Date Immunization Notes Care Provider [facility] 01-14-2023 pneumococcal Conjuga te, unspecified formulation Herminia Case MD Work Phone: [facility] Work Phone: 01-14-2023 pneumococcal (PCV20) vaccine, 20 valent (PREVNAR 20) Herminia Case MD Work Phone: [facility] 10-11-2019 zoster vaccine recombinant Melva Sandoval PA-C Work Phone: [facility] 12-07-2018 influenza, injectabl e, quadrivalent, contains preservative Melva Sandoval PA-C Work Phone: [facility] 12-07-2018 influenza virus vaccine, unspecified formulation 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 Work Phone: [facility] 01-10-2018 influenza nasal, unspecified formulation Herminia Case MD Work Phone: [facility] 01-10-2018 influenza virus vaccine, unspecified formulation Joaniemartir Johnson [facility] 01-10-2018 influenza, seasonal, injectable Melva [place] PA-C Work Phone: [facility] 03-11-2017 pneumococcal polysaccharide vaccine, 23 valent Melva [place] PA-C Work Phone: [facility] Work Phone: 02-15-2017 influenza, injectabl e, quadrivalent, preservative free Melva [place] PA-C Work Phone: [facility] 08-08-2016 tetanus toxoid, redu manjula diphtheria toxoid, and acellular pertussis vaccine, adsorbed [facility]: 02-10-2013 influenza, seasonal, injectable, preservative free Melva Ladonna PA-C Work Phone: [facility] 02-15-2012 influenza, seasonal, injectable, preservative free Melva [place] PA-C Work Phone: [facility] NEGATED: Highlighted row has not occurred!05-22-2022 Influenza,seasonal,sout radha Hemisphere,quad,preserv Free Martha Flores MD Work Phone: [facility] Comment on above: Deferred: Patient Re fused Payers Date Payer Category Payer Self-pay 2022 Medicare (Managed Care) [facility] DUAL COMPLETE HMO POS SNP [id number] 2022 Medicare O [facility] DUAL COMPLET E [id number] 2022 [facility] [id number] 2021 Medicare HUMANA MEDICARE HUMANA GOLD PLUS [id number] 2021-Present [phone] [address] [address] [place] [address] O [id number] 2021 Medicare HUMANA MEDICARE HUMANA GOLD PLUS O [id number] 2021-Present [phone] [place] [id number] 2019 Medicaid [id number] 2019 Medicaid [id number] 2019 Medicare MEDICARE MEDICAR E PART A AND B [id number] 2019-Present [phone] [place] [address] [id number] 2019 Medicare [id number] 2014 Unknown [facility] xxxxxxxxxxxx 2014-Present [phone] [address] [place] [address] xxxxxxxxxxxx [id number] 2014 Unknown [id number] 1955 Unknown [id number] 1955 Unknown [id number] 1955 Unknown [id number] 1955 Unknown [id number] 1955 Unknown [id number] Private Health Insurance Unknown [id number] Unknown [id number] Unknown [id number] Unknown [id number] Unknown [id number] Unknown [id number] Social History Date Type Detail Facility Start: 08-02-2019 End: 07-31-2024 Tobacco smoking status NHIS Former smoker [facility] Start: 03-21-1971 End: 03-21-2017 History of tobacco use Current smoker [facility] Start: 03-21-1971 End: 03-21-2017 History of tobacco use Cigarette Smoker [facility] Start: 08-02-2019 End: 07-31-2024 Cigarettes smoked current (pack per day) - Reported [facility] Start: 08-02-2019 End: 10-20-2020 Alcohol intake Current drinker of alcohol (finding) [facility] Start: 10-19-2017 Alcohol Comment very rarely [facility] Start: 1955 Sex Assigned At Not on file [facility] Exposure to SARS-CoV -2 (event) Unable to assess [facility] [employer] [facility] Start: 10-21-2019 End: 07-31-2024 Tobacco use and exposure Never used [facility] [employer] [facility] Start: 07-27-2021 End: 11-06-2022 Exposure to SARS-CoV-2 (event) Not sure [facility] Start: 11-05-2019 Alcohol Comment 1-2 times/yr [facility] Start: 11-21-2019 Tobacco Comment pt states she quit 4-5 years ago [facility] Start: 11-28-2020 End: 12-30-2023 Alcohol intake Current non-drinker of alcohol (finding) [facility] Start: 05-06-2021 End: 05-21-2022 History SDOH Alcohol Frequency 2 [facility] Start: 05-06-2021 End: 05-21-2022 History SDOH Alcohol Std Drinks 1 [facility] Start: 05-06-2021 History SDOH Social Connections Phone 5 [facility] Start: 05-06-2021 End: 03-05-2022 History SDOH Social Connections Get Together 4 [facility] Start: 05-06-2021 End: 03-05-2022 History SDOH Social Connections Meetings 98 [facility] Start: 05-06-2021 End: 03-05-2022 History SDOH Social Connections Living 3 [facility] Start: 05-06-2021 End: 05-21-2022 History SDOH Physical Activity DPW 0 [facility] Start: 07-11-2018 End: 09-15-2022 Tobacco Comment vaping intermittently [facility] Start: 03-05-2022 End: 07-31-2024 Social connection and isolation panel [facility] Do you belong to any clubs or organizations such as confucianist groups, unions, fraternal or athletic groups, or school groups? No [facility] How often do you att end meetings of the clubs or organizations you belong to? Patient refused [facility] Are you now , , , , never or living with a partner? [facility] How often to you hav e a drink containing alcohol? Never [facility] How hard is it for y ou to pay for the very basics like food, housing, medical care, and heating Not very hard [facility] Do you feel stress - tense, restless, nervous, or anxious, or unable to sleep at night because your mind is troubled all the time - these days [OSQ] To some extent [facility] (I/We) worried jeannie er (my/our) food would run out before (I/we) got money to buy more. Never true [facility] The food that (I/we) bought just didn't last, and (I/we) didn't have money to get more. DK or Refused [facility] Start: 04-26-2021 Gender identity Identifies as female gender (finding) [facility] Start: 04-26-2021 Sexual orientation Heterosexual (finding) [facility] Start: 05-21-2022 End: 08-20-2024 Alcohol intake Ex-drinker (finding) [facility] Start: 05-21-2022 Alcohol Comment Approx once a year [facility] Are you now , , , , never or living with a partner? [facility] Do you feel stress - tense, restless, nervous, or anxious, or unable to sleep at night because your mind is troubled all the time - these days [OSQ] Only a little [facility] Start: 10-19-2021 Sex Female (finding) [facility] History of tobacco use Passive smoker [facility] How often do you nee d to have someone help you when you read instructions, pamphlets, or other written material from your doctor or pharmacy [SILS] Rarely [facility] Medical Equipment Procedure Code Equipment Code Equipment Origin al Text Equipment Identifier Dates Kylee Power Port-12/19/2019 [id number] Start: 12-19-2019 Comment on above: Description: Kylee Barrow ower Port Left Chest Regular Size. Screw Josie 7.3x85mm 16mm-Thrd - [id number] Start: 11-07-2022 Screw Josie 7.3x85mm 16mm-Thrd - [id number] Start: 11-07-2022 Functional Status Date Assessment Result Facility 06-06-2024 Total score [AUDIT-C] 0 06/07/19 9:46 AM EDT User, Na [facility] 06-06-2024 Within the last year , have you been humiliated or emotionally abused in other ways by your partner or ex-partner? No 06/06/2024 9:46 AM EDT User, Charliet No [facility] 06-06-2024 Within the last year , have you been afraid of your partner or ex-partner? No 06/06/2024 9:46 AM EDT User, Charliet No [facility] 06-06-2024 Within the last year , have you been raped or forced to have any kind of sexual activity by your partner or ex-partner? No 06/06/2024 9:46 AM EDT User, Heliohart No [facility] 06-06-2024 Within the last year , have you been kicked, hit, slapped, or otherwise physically hurt by your partner or ex-partner? No 06/06/2024 9:46 AM EDT User, Heliohart No [facility] 06-06-2024 How often to you hav e a drink containing alcohol? Never 06/06/2024 9:46 AM EDT User, Mychart Never [facility] 06-06-2024 Functional status Patient does n ot drink 06/06/2024 9:46 AM EDT User, Charliet Patient does not drink [facility] 06-06-2024 How often do you hav e 6 or more drinks on 1 occasion? Never 06/06/2024 9:46 AM EDT User, Charliet Never [facility] Clinical Notes 09-24-2020 to 09-10-2024 Telephone [...] Weathers MA September 10, 2024 9:01 AM [facility] 09-10-2024 Miscellaneous Notes Prescription Refill [...] 2 TABLETS BY MOUTH AT BEDTIME NEEDED Ttae Weathers MA September 10, 2024 9:01 AM documented in this encounter [facility] 09-07-2024 Telephone encounter Note Spoke to Nilesh from [facility] and scheduled patient for a follow up on 09/24@10am. Patient has not been seen for quite a while and also is requesting port removal to be scheduled. [facility] 09-07-2024 Miscellaneous Notes Spoke to Nilesh from [facility] and scheduled patient for a follow up on 09/24@10am. Patient has not been seen for quite a while and also is requesting port removal to be scheduled. Nilesh from [facility] pt's port was flushed but there was no blood draw back. Patient requested for the port to be removed due to not being used for roughly 1 year. Please contact Nilesh with further questions at [phone] documented in this encounter [facility] 09-07-2024 Telephone encounter Note Nilesh from [facility] states pt's port was flushed but there was no blood draw back. Patient requested for the port to be removed due to not being used for roughly 1 year. Please contact Nilesh with further questions at [phone] [facility] 09-06-2024 History of Presen t illness [...] All questions answered. documented in this encounter [facility] 09-03-2024 Telephone encounter Note Noted. Melva Juárez PA-C [facility] 09-03-2024 Miscellaneous Notes Noted. Melva Juárez PA-C Patient returned call and LVM. Called and spoke with patient Patient was admitted to hospital and recently discharged to a SN, patient's daughter had submitted request in anticipation of discharge. [facility] is currently managing medications, no longer in [...] 2024 2:19 PM documented in this encounter [facility] 09-03-2024 Telephone encounter Note Patient returned call and LVM. Called and spoke with patient Patient was admitted to hospital and recently discharged to a SN, patient's daughter had submitted request in anticipation of discharge. [facility] is currently managing medications, no longer in need Unsure of anticipated discharge, and if it will be to assisted living or back to home. Will plan to keep office aware. [facility] 08-29-2024 Telephone encounter Note Called patient, no answer at this time. Left voicemail to call the office back. [facility] 08-28-2024 Telephone encounter Note Patient had 30 pills filled on on 08/22. Is she following up with a different provider for prescriptions? [facility] 08-22-2024 Telephone encounter Note Prescription [...] Weathers MA August 22, 2024 2:19 PM [facility] 08-20-2024 Telephone encounter Note Prescription [...] Parks LPN August 20, 2024 11:39 AM [facility] 08-20-2024 Miscellaneous Notes Prescription Refill [...] 2024 11:39 AM documented in this encounter [facility] 08-20-2024 History of Presen t illness Narrative Images from the original note were not included. [facility] Pulmonary [facility] [address] [place] [address] Date of Service: 08/20/2024 Visit type: An Established patient Chief Complaint/Reason for Referral: Hospital Follow-up (COPD,PSA/MSSA/STREP LRTI/ESTABLISH PULM OUTPATIENT...) SUBJECTIVE History of Present Illness: Gonzalo Deluca ( 1955) is a 68 y.o. female patient, with significant PMH of COPD, emphysema, chronic respiratory failure 3L, pulmonary nodule, sciatica, and tobacco use being seen for pulmonary hospital follow up Admitted [facility] 07/30/2024 - 08/08/2024 pulmonology was consulted for triple bacterial pneumonia, treated for pseudomona, moraxella and Streptoccus, on top of severe pneumonia, with increased oxygen requirements and chronic respiratory failure. Failure to thrive. Chronic resp failure with severe emphysema, 3L baseline O2. Treated with Dulera, Spiriva. Reports significant weight loss of 40 lbs over the past few months. Currently at [facility], long term. Presents today with son, states breathing is better than before the hospital. Wearing 3L supplemental continuous oxygen today. SpO2 is 92%, does not appear distressed. Staying at [facility] for long term and has been beneficial. Follows with palliative care for dyspnea, taking oxycodone and has been helping. Reports has gained some weight since breathing has improved and being at long term facility. Expressed to keep up whatever it [...] prednisone taper. Wearing 3L O2 at baseline. long-term currently 2. Acute on chronic respiratory failure [...] at this time 7. 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 while at long term facility FOLLOW UP: Follow up in about [...] Chest pain COPD (chronic obstructive pulmonary disease) ([facility]) USE OXYGEN 3 L AT NIGHT DDD (degenerative disc disease), cervical Defect, retina, with detachment right DJD (degenerative joint disease), lumbar Emphysema lung (HCC) Former smoker Hematuria SCHEDULED FOR THE PROCEDURE /SURGERY ON 02/11/2017 Hypokalemia Lung nodules Near syncope 09/19/2023 Osteoporosis Palpitations Pneumonia Recurrent major depression (HCC) Sciatica Thoracic compression fracture ([facility]) Vitamin D deficiency [2] Past Surgical History: [...] cancer Neg Hx documented in this encounter [facility] 08-20-2024 Instructions Rosalee Marvin - 08/20/2024 10:30 AM EDT YOUR APPOINTMENT TODAY WAS WITH [facility] LUNG NODULE CLINIC, COPD CLINIC, PULMONARY AND SLEEP MEDICINE OFFICE. PLEASE CALL OUR OFFICE AT [phone] for our [place] office location or [phone] for our [place] location, IF YOU HAVE NOT RECEIVED YOUR [...] to make improvements. COVID-19 VACCINATION INFORMATION: PH. [phone] [email or web address] [facility] Central Scheduling [phone] [facility] Sleep Scheduling [phone] documented in this encounter [facility] 08-14-2024 Telephone encounter Note Prescription Refill [...] Weathers MA August 14, 2024 10:39 AM [facility] 08-14-2024 Miscellaneous Notes Prescription Refill [...] 2024 10:39 AM documented in this encounter [facility] 08-08-2024 Nurse Note Called report to [facility] [place]. Pickup scheduled for 3:30pm. [facility] 08-08-2024 Nurse Note Called report to [facility]. Pickup scheduled for 3:30pm. Wound Care consulted for Pressure Injury Prevention. Pt's Jeri score= 17 on 08/08 Pt's pressure points assessed. Pt stood independently for posterior assessment. Pt's Heels, Buttocks/coccyx, Back, Right elbow, Occiput and ears all intact. Cast in place to left upper extremity. Steen and healed area noted to coccyx. Steen and blanchable tissues noted to bilateral heels. [...] Rosalina Cross RN documented in this encounter [facility] 08-08-2024 History of Presen t illness Narrative Pt has been seen by palliative care during this hospital admission. Provider suggested referral to outside pall care provider at [facility]. Referral sent to [facility], faxed to documented in this encounter [facility] 08-08-2024 Note Pt has been seen by palliative care during this hospital admission. Provider suggested referral to outside pall care provider at [facility]. Referral sent to [facility], faxed to [phone] [facility] 08-08-2024 Nurse Note Wound Care consulted for Pressure Injury Prevention. Pt's Jeri score= 17 on 08/08 Pt's pressure points assessed. Pt stood independently for posterior assessment. Pt's Heels, Buttocks/coccyx, Back, Right elbow, Occiput and ears all intact. Cast in place to left upper extremity. Steen and healed area noted to coccyx. Steen and blanchable tissues noted to bilateral heels. [...] any questions or concerns. Rosalina Cross RN [facility] 08-08-2024 Note Formatting of this n ote might be different from the original. Rounds this am DCP: [facility] Called to notify Karishma/dtr: [facility] has overturned the Denial and is approved to go to [facility] Transport arranged for 330pm. Tasked to SHOE TRIMMER to complete 7,000 Send AVS and Mar to facility Facility is updated RN and MD notified [facility] 08-08-2024 Note Formatting of this n ote might be different from the original. Rounds this am DCP: [facility] Called to notify Karishma/dtr: [facility] has overturned the Denial and is approved to go to [facility] Transport arranged for 330pm. Tasked to SHOE TRIMMER to complete 7,000 Send AVS and Mar to facility Facility is updated RN and MD notified [facility] 08-08-2024 Miscellaneous Notes Rounds this am DCP: [facility] Called to notify Karishma/dtr: [facility] has overturned the Denial and is approved to go to [facility] Transport arranged for 330pm. Tasked to SHOE TRIMMER to complete 7,000 Send AVS and Mar to facility Facility is updated RN and MD notified [facility] Patient Name: GONZALO DELUCA Date of : 1955 All Providers Sent Referral Name: [facility] Phone: [phone] Address: [address] [place] [address] Name: [facility] Phone: [phone] Address: [address] [place] [address] Name: [facility] Phone: [phone] Address: [address] [place] [id number] Name: [facility] Phone: [phone] Address: [address] [place] [address] MAR, Discharge med list transmitted and 7000 in HENs to [facility] via Careport per TCC request. Problem: Knowledge [...] -Notified Dr. Beverly -Updated clinicals faxed to [phone] -If the appeal process is upheld, pt will have to go home with [facility]. -wireless sales manager to follow and assist as needed. [...] denying SNF. [place] asked to go to [place]. She is in the process of trying to get to [facility] through her waiver services. She started this [...] Appeals number given to pt to call: [phone]. Appeals fax number: [phone]. Pt was calling as this CM was walking out of her room. wireless sales manager to follow and assist as needed. Spoke with patients daughter Karishma, regarding dc plans, who states that they would like to ideally get patient into long term and then get patient over to [facility] under Medicaid. This will require an insurance appeal for the long term facility. Shared this discussion with the TCC [...] submit an appeal. The appeal number for [facility] is [phone] and fast appeal fax [phone] is not open on the weekend and this will need to be initiated on Tuesday. Discussed with patient and she wanted to discuss with her daughter prior to deciding to pursue appeal or discharge home with [facility]. She did state that her daughter [...] discharge needs are met Outcome: Progressing Called [facility] and spoke with Xiao and insurance is requesting peer to peer to be completed by 08/06 at 12 noon central standard time. Number for peer to peer is [phone] option 5. Will need members name, and [...] nutritional intake Outcome: Progressing Tasked weekend correctional casework specialist to follow for pending auth to [facility]. 7000 will need to be completed at the time of discharge. wireless sales manager to follow and assist as needed. Sent updated notes to [facility] via Careport per TCC request. Await review and response regarding ability to accept. TCC notified. Care Management Progress Note -Discharge plan is [facility] -Tasked SHOE TRIMMER supervisor sheet manufacturing to start auth. -Tasked SHOE TRIMMER to send updated clinical notes to facility. -wireless sales manager to follow for auth approval and [...] met Outcome: Progressing Referral placed to SNF- [facility] via Careport per [facility] request. Await review and response regarding ability to accept. TCC notified. Care Management Progress Note -Spoke with pt at bedside for SNF choices. -Pt would like referrals sent to [facility], [facility], [facility], and [facility]. -Tasked SHOE TRIMMER to send those referrals. -Will speak with pt again once facility responses are in for facility of choice. -wireless sales manager to follow and assist as needed. Length of Stay (Days): 1 GMLOS: No GMLOS Documented -Spoke with pt and she has chosen [facility] as FOC. Informed facility. ADOD is [address] Bishop. Anticipate starting auth tomorrow. wireless sales manager to follow and assist as needed. [...] case she decides before then on choices. -wireless sales manager to follow and assist as needed. [...] My discharge needs are met Outcome: Progressing Anchor Operator following case for Discharge Needs. Images from the original note were not included. [facility] Palliative Care Transitions of Care Note Gonzalo [...] short of breath when trying to eat. -Veterinary Laboratory Technician would be helpful. -BMI 15.28 -Albumin-->3.0 -Monitor. [...] Skilled Rehab Facility FACILITY/HOME CARE AGENCY NAME: [facility] Follow up with [facility] on office to call patient. [...] 5L last read documented in this encounter [facility] 08-08-2024 Note Formatting of this n ote might be different from the original. Patient Choice Patient Name: GONZALO DELUCA Date of : 1955 All Providers Sent Referral Name: Vinicius Brigitte AMAYA Member Phone: [phone] Address: [address] [place] [address] Name: [facility] Phone: [phone] Address: [address] [place] [address] Name: [employer] Phone: [phone] Address: [address] [place] [address] Name: [facility] Phone: [phone] Address: [address] [place], [place] [address] [facility] 08-08-2024 Note Formatting of this n ote might be different from the original. Patient Choice Patient Name: GONZALO DELUCA Date of : 1955 All Providers Sent Referral Name: [place] Brigitte AMAYA Member Phone: [phone] Address: [address] [place] [address] Name: [facility] Phone: [phone] Address: [address] [place] [address] Name: [employer] Phone: [phone] Address: [address] [place] [address] Name: [facility] Phone: [phone] Address: [address] [place] [address] [facility] 08-08-2024 Note Formatting of this n ote might be different from the original. MAR, Discharge med list transmitted and 7000 in [facility] to [facility] via Careport per TCC request. [facility] 08-08-2024 Note Formatting of this n ote might be different from the original. MAR, Discharge med list transmitted and 7000 in [facility] to [facility] via Careport per TCC request. T [facility] 08-08-2024 Note Hospitalist Discharg e Summary Gonzalo [...] status. Recent healthcare interactions include consultations with [facility], palliative care, pulmonology, orthopedic surgery, geriatrics, and [...] respiratory failure and severe emphysema. Plan: - MARINE CARGO INSPECTOR evaluation: recommended regular solids with thin liquids, [...] Adjust: - Decreased (more content not included)... [facility] 08-08-2024 Hospital course Narrative Images from the [...] status. Recent healthcare interactions include consultations with [facility], palliative care, pulmonology, orthopedic surgery, geriatrics, and [...] respiratory failure and severe emphysema. Plan: - MARINE CARGO INSPECTOR evaluation: recommended regular solids with thin liquids, [...] Plus 07/31/24 1030 07/31/24 1031 Supplement:HS Snack; [place] Ensure Plus Until discontinued Question Answer Comment Frequency HS Snack Select supplement: [place] Ensure Plus 07/31/24 1030 07/30/24 2313 Adult [...] Your Medications These medications were sent to [facility]/pharmacy #[id number] [place] [id number] [facility] [place] [id number] PARoxetine 30 MG tablet You can get these medications from any pharmacy Bring a paper prescription for each of these medications morphine 15 MG tablet Information about where to get these medications is not yet available Ask your nurse or doctor about these medications albuterol (2.5 MG/3ML) 0.083% nebulizer solution folic acid 1 MG tablet QUEtiapine 50 MG tablet Recommended Follow-up: [facility] [address] [facility] [address] [facility] [address] Follow up Cognitive Evaluation Betsey Gresham MD [address] [place] [facility] [address] Schedule an appointment as soon as possible for a visit in 3 week(s) Elyssa Tesfaye NP [address] [facility] [phone] Go on 08/20/2024 Pulmonary hospital follow up at 10:30 AM Complexity of Follow up: [] Moderate Complexity: follow up within 7-14 calendar days (21206) [x] Severe Complexity: follow up within 7 calendar days (79479) Follow up Testing, Pending results or Referrals [...] Rena Beverly MD Division of Hospitalist Medicine [facility] 08/08/2024, 12:48 PM [1] Past Medical History: [...] Vitamin D deficiency documented in this encounter [facility] 08-08-2024 History of Presen t illness Narrative Patient chart reviewed and being rounded on. Note to follow. 6:29 AM 08/08/24 Rena Beverly MD Division of Hospitalist Medicine [facility] Images from the original note were not included. [facility], Pulmonary Medicine [address] [place] [address] Patient - Gonzalo Deluca, Age - 68 y.o. - 1955 Room Number - B2-254/B2-254 B Consulting - Rena Beverly MD Primary Care Physician - [id number] Date of Admission - 07/30/2024 4:40 PM [...] She is not currently following with a doctor of pharmacy. She is on Breo ellipta, Spiriva, and [...] prosthetic devices, implants and grafts, initial encounter ([facility]) Chronic pain COPD (chronic obstructive pulmonary disease) ([facility]) DDD (degenerative disc disease), cervical Leukocytosis Malignant neoplasm of exocervix ([facility]) Recurrent major depression ([facility]) Pulmonary nodule S/P hysterectomy Sciatica Shortness of breath Supplemental oxygen dependent PNA (pneumonia) H/O: CVA (cerebrovascular accident) Former smoker Nondisplaced fracture of neck of left femur ([facility]) Lumbar compression fracture, closed, initial encounter ([facility]) Severe malnutrition (CMS/HCC) ([facility]) Falls frequently Unintentional weight loss Debility PFO [...] status. Recent healthcare interactions include consultations with [facility], palliative care, pulmonology, orthopedic surgery, geriatrics, and [...] appeal process to try to get into long term facility. She denies any fever cough or [...] of failure to thrive and debility - MARINE CARGO INSPECTOR evaluation: recommended regular solids with thin liquids, sitting upright, slow rate of intake, and small bites - long-term's has been denied - will need appeal. [...] signs, labs obtained, awaiting for appeal for long term facility, if that gets denied will need [...] Primary Emergency Contact: Karishma Deluca Address: [address] [place] [address] [place] [address] [facility] [place] Relation: Daughter Secondary Emergency Contact: RaudelyahirJace [place] Relation: Son Rena Tuyet Beverly MD Division of Hospitalist Medicine [facility] [1] Past Medical History: Diagnosis Date [...] (interosseous) Fluid Accumulation: No significant fluid accumulation Ict Help Desk Technician Strength: Nutrition Assessment: per MD-BRIEF HOSPITAL COURSE: [...] status. Recent healthcare interactions include consultations with [facility], palliative care, pulmonology, orthopedic surgery, geriatrics, and [...] 5.7 oz) % Weight Change (Calculated): -27.2 [place] Body Weight (lbs) (Calculated): 120 lbs [place] Body Weight (Kg) (Calculated): 55 kg % [place] Body Weight (Calculated): 74.2 % BMI (kg/m2) [...] Oral Nutrition Supplement Phillip Bradshaw RD Contact: *[phone] or secure chat [facility] Geriatric Medicine Inpatient Consult Service Admission [...] at [facility] for more in depth [...] (L) 07/30/2024 Lab Results Component Value Date [id number] 07/30/2024 Lab Results Component Value Date VITD25 30 09/21/2023 [1] Current Facility-Administered Medications: acetaminophen (Tylenol) tablet 650 mg, 650 mg, Oral, q6h PRN OR acetaminophen (Tylenol) suppository 650 mg, 650 mg, Rectal, q6h PRN, Lauren Serna MD acetaminophen (Tylenol) tablet 650 mg, 650 mg, Oral, BID, Saad Ezzie, SPRAYING MACHINE OPERATOR - CARD PLACER, 650 mg at 08/06/24 0841 albuterol (2.5 [...] Oral, q AM, Saad Telles APRN - CARD PLACER, 30 mg at 08/06/24 0841 polyethylene glycol [...] mg, 10 mg, Oral, Daily, Leann Cross SPRAYING MACHINE OPERATOR - CARD PLACER QUEtiapine (SEROquel) tablet 50 mg, 50 mg, Oral, Nightly PRN, Saad Telles APRN - CARD PLACER, 50 mg at 08/05/24 2048 sodium chloride ([place]) 0.65 % nasal spray 2 spray, 2 spray, Each Nostril, q2h PRN, Dejuan Bishop MD, 2 spray at 08/02/24 1621 tiotropium (Spiriva Respimat) 2.5 MCG/ACT inhaler 2 puff, 2 puff, Inhalation, Daily, Lauren Serna MD, 2 puff at 08/06/24 0839 Images from the original note were not included. PHYSICAL THERAPY [facility] Treatment Note Name/MRN: Gonzalo Deluca ([id number]) Date of : 1955 Age: 68 y.o. Room/Bed: B2-254/[facility]254 B Visit #: 5 out of 7 Discharge Recommendation: [facility] Facility Other: TBD at next level of [...] from the original note were not included. [facility], Pulmonary Medicine [address] [place], [place] [id number] Patient - Gonzalo Deluca, Age - 68 y.o. - 1955 Room Number - B2-254/B2-254 B Consulting - Rena Beverly MD Primary Care Physician - HERMINIA CASE MD [facility] # - [id number] Date of Admission - 07/30/2024 4:40 PM [...] She is not currently following with a doctor of pharmacy. She is on Breo ellipta, Spiriva, and [...] prosthetic devices, implants and grafts, initial encounter ([facility]) Chronic pain COPD (chronic obstructive pulmonary disease) ([facility]) DDD (degenerative disc disease), cervical Leukocytosis Malignant neoplasm of exocervix ([facility]) Recurrent major depression ([facility]) Pulmonary nodule S/P hysterectomy Sciatica Shortness of breath Supplemental oxygen dependent PNA (pneumonia) H/O: CVA (cerebrovascular accident) Former smoker Nondisplaced fracture of neck of left femur (HCC) Lumbar compression fracture, closed, initial encounter ([facility]) Severe malnutrition (CMS/HCC) ([facility]) Falls frequently Unintentional weight loss Debility PFO (patent foramen ovale) Adult failure to thrive Anxiety and depression Cognitive deficits At risk for delirium Images from the original note were not included. OCCUPATIONAL THERAPY [facility] Treatment Note Name/MRN: Gonzalo Deluca ([id number]) Date of : 1955 Age: 68 y.o. Room/Bed: [facility] B Visit #: 4 out of [...] status. Recent healthcare interactions include consultations with [facility], palliative care, pulmonology, orthopedic surgery, geriatrics, [...] of failure to thrive and debility - MARINE CARGO INSPECTOR evaluation: recommended regular solids with thin liquids, sitting upright, slow rate of intake, and small bites - long-term's has been denied - will need appeal. [...] Information Primary Emergency Contact: Nacho Delucai Address: [address] [place] [address] [place] [phone] [facility] [place] Relation: Daughter Secondary Emergency Contact: Jace Deluca [place] Relation: Son Rena Tuyet Beverly MD Division of Hospitalist Medicine [facility] [1] Past Medical History: Diagnosis Date [...] original note were not included. PHYSICAL THERAPY [facility] Treatment Note Name/MRN: Gonzalo Deluca ([id number]) Date of : 1955 Age: 68 y.o. Room/Bed: B2-254/B2254 B Visit #: 4 out of 7 Discharge Recommendation: [facility] Facility Other: TBD at next level of [...] original note were not included. OCCUPATIONAL THERAPY [facility] Treatment Note Name/MRN: Gonzalo Deluca ([id number]) Date of : 1955 Age: 68 y.o. Room/Bed: B2-254/B2-254 B Visit #: 3 out of 6 Discharge Recommendation: [facility] Facility Equipment Needed: No Assessment Pt tolerated [...] from the original note were not included. 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 major [...] prosthetic devices, implants and grafts, initial encounter ([facility]) Chronic pain COPD (chronic obstructive pulmonary disease) (HCC) DDD (degenerative disc disease), cervical Leukocytosis Malignant neoplasm of exocervix (HCC) Recurrent major depression (HCC) Pulmonary nodule S/P hysterectomy Sciatica Shortness of breath Supplemental oxygen dependent PNA (pneumonia) H/O: CVA (cerebrovascular accident) Former smoker Nondisplaced fracture of neck of left femur (HCC) Lumbar compression fracture, closed, initial encounter ([facility]) Severe malnutrition (CMS/HCC) ([facility]) Falls frequently Unintentional weight loss Debility PFO [...] status. Recent healthcare interactions include consultations with [facility], palliative care, pulmonology, orthopedic surgery, geriatrics, [...] of failure to thrive and debility - MARINE CARGO INSPECTOR evaluation: recommended regular solids with thin liquids, sitting upright, slow rate of intake, and small bites - Consider long term facility placement for comprehensive care - Geriatrics [...] Primary Emergency Contact: Karishma Deluca Address: [address] [place] [address] [place] [address] [facility] [place] Relation: Daughter Secondary Emergency Contact: Jace Deluca [place] Relation: Son Rean Tuyet Beverly MD Division of Hospitalist Medicine [facility] [1] Past Medical History: Diagnosis Date [...] from the original note were not included. [facility], Pulmonary Medicine [address] [place] [address] Patient - Gonzalo Deluca, Age - 68 y.o. 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 Recent healthcare interactions include consultations with [facility], palliative care, pulmonology, orthopedic surgery, geriatrics, [...] of failure to thrive and debility - MARINE CARGO INSPECTOR evaluation: recommended regular solids with thin liquids, sitting upright, slow rate of intake, and small bites - Consider long term facility placement for comprehensive care - Geriatrics [...] Primary Emergency Contact: Karishma Deluca Address: [address] [place] [address] [place] [address] [facility] [place] Relation: Daughter Secondary Emergency Contact: YosiJace [place] Relation: Son Rena Tuyet Beverly MD Division of Hospitalist Medicine [facility] [1] Past Medical History: Diagnosis Date [...] original note were not included. PHYSICAL THERAPY [facility] Name/MRN: Gonzalo Deluca ([id number]) Date: 08/04/2024 Chart review completed this date. PT attempted. Pt supine. Receiving breathing treatments during first attempt second attempt patient requesting PROFESSIONAL EMPLOYER CONSULTANT return after eating breakfast. Pt tray had [...] is 21 -already being followed by RD. [facility] Respiratory Care Department Progress Note As [...] (interosseous) Fluid Accumulation: No significant fluid accumulation Ict Help Desk Technician Strength: Nutrition Assessment: 68 year old woman who remains admitted to [facility] at direction of PCP with FTT- [...] 122.35# 09/08/23) % Weight Change (Calculated): -24.3 [place] Body Weight (lbs) (Calculated): 120 lbs [place] Body Weight (Kg) (Calculated): 55 kg % [place] Body Weight (Calculated): 77.2 % BMI (kg/m2) [...] Nutrition Supplement Celeste Garcia RDN, LDN, Contact: *[phone] [facility] Geriatric Medicine Inpatient Consult Service Admission [...] for shortness of breath --[place] looking [place] [facility] --08/03: [facility] Severe Malnutrition --continue Mirtazapine [...] note, this was the dose recommended by [facility] psychiatry when she was hospitalized in [...] (L) 07/30/2024 Lab Results Component Value Date [id number] [id number] 07/30/2024 Lab Results Component Value Date VITD25 30 09/21/2023 [1] Current Facility-Administered Medications: acetaminophen (Tylenol) tablet 650 mg, 650 mg, Oral, q6h PRN OR acetaminophen (Tylenol) suppository 650 mg, 650 mg, Rectal, q6h PRN, Lauren Serna MD acetaminophen (Tylenol) tablet 650 mg, 650 mg, Oral, BID, Saad Haynese, SPRAYING MACHINE OPERATOR - CARD PLACER, 650 mg at 08/03/24910 albuterol (2.5 MG/3ML) [...] tablet 10 mg, 10 mg, Oral, Nightly, Laurne Serna MD, 10 mg at 08/02/242047 morphine (MSIR) tablet 15 mg, 15 mg, Oral, q4h PRN, Imelda Bernard, SPRAYING MACHINE OPERATOR - CARD PLACER, 15 mg at 08/03/24 0909 naloxone (Narcan) injection 0.4 mg, 0.4 mg, IntraVENous, q5 min PRN, Lauren Serna MD ondansetron ODT (Zofran-ODT) disintegrating tablet 4 mg, 4 mg, Oral, q8h PRN OR ondansetron (Zofran) injection 4 mg, 4 mg, IntraVENous, q6h PRN, Lauren Serna MD PARoxetine (Paxil) tablet 30 mg, 30 mg, Oral, q AM, Saad Telles, SPRAYING MACHINE OPERATOR - CARD PLACER, 30 mg at 08/03/24 0910 polyethylene glycol [...] mg, 10 mg, Oral, Daily, Leann Cross, SPRAYING MACHINE OPERATOR - CARD PLACER QUEtiapine (SEROquel) tablet 50 mg, 50 mg, Oral, Nightly PRN, Saad Telles APRN - [place], 50 mg at 08/02/242047 sodium chloride ([place]) 0.65 % nasal spray 2 spray, 2 spray, Each Nostril, q2h PRN, Dejuan Bishop MD, 2 spray at 08/02/24 1621 tiotropium (Spiriva Respimat) 2.5 MCG/ACT inhaler 2 puff, 2 puff, Inhalation, Daily, Lauren Serna MD, 2 puff at 08/03/24 0915 Images from the original note were not included. PHYSICAL THERAPY [facility] Treatment Note Name/MRN: Gonzalo Deluca ([id number]) Date of : 1955 Age: 68 y.o. Room/Bed: [facility]254/[facility] B Visit #: 3 out of 7 visits Discharge Recommendation: [facility] Facility Other: TBD at next level of [...] original note were not included. OCCUPATIONAL THERAPY [facility] Treatment Note Name/MRN: Gonzalo Deluca ([id number]) Date of : 1955 Age: 68 y.o. Room/Bed: B2-254/B2-254 B Visit #: 2 out of 6 visits Discharge Recommendation: [facility] Facility Equipment Needed: No Prior Level of Function Prior Level of ADL Function: Independent Prior Level of Mobility: Independent; Device: Straight Cane Prior Level of Transfers: Independent Assessment Pt tolerated session fair, continues to be limited by fatigue and SOB. Pt completed bed mobility at Mod I. Pt completed x3 STS and LE dressing/bathing at [employer]. Pt completed seated UE bathing at Mod [...] Pt completed standing LE bathing (periarea) at [employer]. Pt demo no overt LoB, generally unstable. [...] x3 STS from EOB without device at [employer]. Pt ed on proper tech to maintain [...] status. Recent healthcare interactions include consultations with [facility], palliative care, pulmonology, orthopedic surgery, geriatrics, [...] of failure to thrive and debility - MARINE CARGO INSPECTOR evaluation: recommended regular solids with thin liquids, sitting upright, slow rate of intake, and small bites - Consider long term facility placement for comprehensive care - Geriatrics [...] Primary Emergency Contact: Karishma Deluca Address: [address] [place] [address] [place] [address] [facility] [place] Relation: Daughter Secondary Emergency Contact: Jace Deluca Mobile Relation: Son Rena Tuyet Beverly MD Division of Hospitalist Medicine [facility] [1] Past Medical History: Diagnosis Date [...] from the original note were not included. 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 [...] prosthetic devices, implants and grafts, initial encounter ([facility]) Chronic back pain COPD (chronic obstructive pulmonary disease) ([facility]) DDD (degenerative disc disease), cervical Leukocytosis Malignant neoplasm of exocervix ([facility]) Recurrent major depression ([facility]) Pulmonary nodule S/P hysterectomy Sciatica Shortness of breath Supplemental oxygen dependent PNA (pneumonia) H/O: CVA (cerebrovascular accident) Former smoker Nondisplaced fracture of neck of left femur ([facility]) Lumbar compression fracture, closed, initial encounter ([facility]) Severe malnutrition (CMS/HCC) ([facility]) Falls frequently Unintentional weight loss Debility PFO [...] short of breath when trying to eat. -Veterinary Laboratory Technician would be helpful. -BMI 15.28 -Albumin-->3.0 -Monitor. [...] Improve or Maintain Function/Quality of Life, Preserve [place]/Autonomy/Control, and Remain at Home Advanced Directives: DNR-CCA, DNI Functional Assessment: PPS 70% amb reduced; can't do normal work/some disease; full self care; normal or reduced intake; full LOC Prognosis: depends upon goals of care Spiritual Assessment: No spiritual distress identified Bereavement and Grief: To Be Determined PDMP/OARRS Reviewed: Yes-reviewed ROS: See palliative care ROS/ESAS below; All other systems were reviewed and are negative. Mize Symptom Assessment Score Mize Score Pain Score (if non-verbal, add .FLACC [...] original note were not included. PHYSICAL THERAPY [facility] Treatment Note Name/MRN: Gonzalo Deluca ([id number]) Date of : 1955 Age: 68 y.o. Room/Bed: [facility] B Visit #: 2 out of 7 visits Discharge Recommendation: Continue to assess pending progress, [facility] Facility Other: TBD at next level of [...] 10 Minutes (gait x1) Rayo Joseph PT [facility] Geriatric Medicine Inpatient Consult Service Admission [...] deficits. --Recommend outpatient follow up at [facility]) for more in depth cognitive [...] fracture, Vitamin D deficiency, anxiety, presented to [facility] on 07/30/24 with complaints of weight [...] (L) 07/30/2024 Lab Results Component Value Date [id number] 07/30/2024 Lab Results Component Value Date [...] 15 mg, Oral, q4h PRN, Imelda Bernard, SPRAYING MACHINE OPERATOR - CARD PLACER, 15 mg at 08/02/24 1156 naloxone (Narcan) injection 0.4 mg, 0.4 mg, IntraVENous, q5 min PRN, Lauren Serna MD ondansetron ODT (Zofran-ODT) disintegrating tablet 4 mg, 4 mg, Oral, q8h PRN OR ondansetron (Zofran) injection 4 mg, 4 mg, IntraVENous, q6h PRN, Lauren Serna MD PARoxetine (Paxil) tablet 30 mg, 30 mg, Oral, q AM, Saad Ezdariene, SPRAYING MACHINE OPERATOR - CARD PLACER, 30 mg at 08/02/24 0936 polyethylene glycol [...] CNP, 50 mg at 08/01/242032 sodium chloride ([place]) 0.65 % nasal spray 2 spray, 2 spray, Each Nostril, q2h PRN, Dejuan Bishop MD tiotropium (Spiriva Respimat) 2.5 MCG/ACT inhaler 2 puff, 2 puff, Inhalation, Daily, Lauren Serna MD, 2 puff at 08/02/24 0806 Hospitalist Progress Note 08/02/2024 [phone]: Please page me ([phone]) for patient care issues. [phone]: Please page IMS night Hospitalist for any issues. Subjective: Admit Date: 07/30/2024 PCP: HERMINIA CASE MD Room#: B2-254/B2254 B Interval History: Patient is sitting on the bed, still on 5 L nasal cannula saturating well. No signs of respiratory distress noticed Denies any cough or sputum production pain No other significant overnight issues. Adult diet Regular @[id number]@ 24HR INTAKE/OUTPUT: No intake or output data [...] prophylaxis: Lovenox daily. Disposition: PT OT recommending long term facility. Possible discharge in next 1 to 2 days. Pending Long arm cast placement -am labs, replace lytes prn -increase activity -DVT prophylaxis: [] Lovenox [] Heparin [] SCDs [x] Encourage ambulation [] Already on Anticoagulation Advance Directive: DNR-CCA Discharge planning: TBD Dejuan Bishop MD Division of Hospitalist Medicine Inpatient Medical Services/[facility]: [phone] Acute hypoxic respiratory failure [1] Past Medical [...] original note were not included. OCCUPATIONAL THERAPY [facility] Treatment Note Name/MRN: Gonzalo Deluca ([id number]) Date of : 1955 Age: 68 y.o. Room/Bed: [facility] B Visit #: 1 out of 6 visits Discharge Recommendation: [facility] Facility, Continue to assess pending progress Equipment [...] Daily Activity Raw Score: 18 ADL Inpatient [facility] G-Code Modifier: CK Goals Patient Stated Goal: [...] from the original note were not included. [facility] [place], Pulmonary Medicine [address] [place] [address] Patient - Gonzalo Deluca, Age - 68 y.o. 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 [...] prosthetic devices, implants and grafts, initial encounter ([facility]) Chronic back pain COPD (chronic obstructive pulmonary disease) ([facility]) DDD (degenerative disc disease), cervical Leukocytosis Malignant neoplasm of exocervix (HCC) Recurrent major depression ([facility]) Pulmonary nodule S/P hysterectomy Sciatica Shortness of breath Supplemental oxygen dependent PNA (pneumonia) H/O: CVA (cerebrovascular accident) Former smoker Nondisplaced fracture of neck of left femur ([facility]) Lumbar compression fracture, closed, initial encounter ([facility]) Severe malnutrition (CMS/HCC) ([facility]) Falls frequently Unintentional weight loss Debility PFO (patent foramen ovale) Adult failure to thrive Hospitalist Progress Note 08/01/2024 [phone]: Please page me ([phone]) for patient care issues. [phone]: Please page [facility] Hospitalist for any issues. Subjective: Admit Date: 07/30/2024 PCP: HERMINIA CASE MD Room#: B2-254/B2-254 B Interval History: Patient is sitting on the chair, denies any chest pain shortness of breath or palpitations Denies any upper extremity pain. No other significant overnight issues. Adult diet Regular @[id number]@ 24HR INTAKE/OUTPUT: Intake/Output Summary (Last 24 hours) [...] prophylaxis: Lovenox daily. Disposition: PT OT recommending long term facility. Possible discharge in next 1 to 2 days. Pending Long arm cast placement -am labs, replace lytes prn -increase activity -DVT prophylaxis: [] Lovenox [] Heparin [] SCDs [x] Encourage ambulation [] Already on Anticoagulation Advance Directive: DNR-CCA Discharge planning: TBD Dejuan Bishop MD Division of Hospitalist Medicine Inpatient Medical Services/[facility]: [phone] [1] Past Medical History: Diagnosis Date Abnormal [...] original note were not included. PHYSICAL THERAPY [facility] Treatment Note Name/MRN: Gonzalo Deluca ([id number]) Date of : 1955 Age: 68 y.o. Room/Bed: [facility] B Visit #: 1 out of 7 visits Discharge Recommendation: Continue to assess pending progress, [facility] Facility Other: TBD at next level of [...] Raw Score (No Stairs) : 15 [facility] Score: Walked 25 ft or more (i.e. [...] Esparza PT at 08/01/2024 4:08 PM EDT [facility] Geriatric Medicine Inpatient Consult Service Admission [...] [facility] for more in depth [...] fracture, Vitamin D deficiency, anxiety, presented to [facility] on 07/30/24 with complaints of weight [...] (L) 07/30/2024 Lab Results Component Value Date [id number] 07/30/2024 Lab Results Component Value Date [...] not included. Speech-Language Pathology SPEECH LANGUAGE PATHOLOGY [facility] Dysphagia Treatment Note Patient Name: Gonzalo Deluca Evaluation Date: 08/01/2024 Date of : 1955 Admission Date: 07/30/2024 4:40 PM Age: 68 y.o. Room/Bed: [facility] B Subjective Patient alert and cooperative. Seen [...] Plus 07/31/24 1030 07/31/24 1031 Supplement:HS Snack; [place] Ensure Plus Until discontinued Question Answer Comment Frequency HS Snack Select supplement: [place] Ensure Plus 07/31/24 1030 07/30/24 2313 Adult [...] bites/sips Patient has achieved all acute care MARINE CARGO INSPECTOR goals. Speech therapy to sign off at [...] Expected End: 08/07/24 Resolved: 08/01/24 Therapy Time MARINE CARGO INSPECTOR Individual Minutes Time In: 0830 Time Out: [...] -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 -Veterinary Laboratory Technician would be helpful. -BMI 15.28 -Albumin-->3.0 -Monitor. [...] emphysema. -Pulmonology consulted, await recs. Discussed with IMMIGRATION ATTORNEY Leann this AM. She will need follow [...] Improve or Maintain Function/Quality of Life, Preserve [place]/Autonomy/Control, and Remain at Home Advanced Directives: DNR Functional Assessment: PPS 70% amb reduced; can't do normal work/some disease; full self care; normal or reduced intake; full LOC Prognosis: depends upon goals of care Spiritual Assessment: No spiritual distress identified Bereavement and Grief: To Be Determined PDMP/OARRS Reviewed: Yes-reviewed ROS: See palliative care ROS/ESAS below; All other systems were reviewed and are negative. Mize Symptom Assessment Score Mize Score Pain Score (if non-verbal, add .FLACC [...] 07/30/2024 PLT 225 07/30/2024 Hospitalist Progress Note 07/31/[id number]: Please page me ([phone]) for patient care issues. [phone]: Please page IMS night Hospitalist for any issues. Subjective: Admit Date: 07/30/2024 PCP: HERMINIA CASE MD Room#: B2-254/-254 B Interval History: Patient is sitting on the bed, denies any chest pain or shortness of breath. Denies any abdominal pain nausea or vomitings No other significant overnight issues. Adult diet Regular @[id number]@ 24HR INTAKE/OUTPUT: Intake/Output Summary (Last 24 hours) [...] prophylaxis: Lovenox daily. Disposition: PT OT recommending long term facility. Possible discharge in next 1 to 2 days. Pending Long arm cast placement -am labs, replace lytes prn -increase activity -DVT prophylaxis: [] Lovenox [] Heparin [] SCDs [x] Encourage ambulation [] Already on Anticoagulation Advance Directive: DNR-CCA Discharge planning: TBD Dejuan Bishop MD Division of Hospitalist Medicine Inpatient Medical Services/[facility]: [phone] [1] Past Medical History: Diagnosis Date Abnormal [...] not included. Speech-Language Pathology SPEECH LANGUAGE PATHOLOGY [facility] SPEECH THERAPY DIET RECOMMENDATIONS Diet: Regular solids (SOFT CHOICES as NEEDED)and Thin liquids Medications: as tolerated Precautions: - Upright positioning for all PO intake - Slow rate of intake - Small bites/sips Images from the original note were not included. PHYSICAL THERAPY [facility] Initial Evaluation Name/MRN: Gonzalo Deluca ([id number]) Evaluation Date: 07/31/2024 Date of : 1955 Admission Date: 07/30/2024 4:40 PM Age: 68 y.o. Room/Bed: [facility] B Discharge Recommendation: Continue to assess pending progress, [facility] Facility Other: TBD at next level of [...] Problem List Diagnosis Date Noted Severe malnutrition ([facility]) ([facility]) 07/31/2024 Adult failure to thrive 07/30/2024 Falls frequently 09/20/2023 Unintentional weight loss 09/20/2023 Debility 09/20/2023 PFO (patent foramen ovale) 09/20/2023 Lumbar compression fracture, closed, initial encounter ([facility]) 02/13/2023 Nondisplaced fracture of neck of left femur ([facility]) 11/06/2022 Other specified complication of vascular prosthetic devices, implants and grafts, initial encounter ([facility]) 08/06/2021 Poor venous access 12/19/2019 H/O: CVA (cerebrovascular accident) 12/14/2019 Malignant neoplasm of exocervix ([facility]) 11/07/2019 S/P hysterectomy 11/07/2019 PNA (pneumonia) 08/02/2019 Leukocytosis 04/13/2018 Shortness of breath 04/13/2018 DDD (degenerative disc disease), cervical 04/12/2018 Recurrent major depression ([facility]) 04/12/2018 Chronic back pain 04/10/2017 COPD (chronic obstructive pulmonary disease) ([facility]) 04/10/2017 Pulmonary nodule 04/10/2017 Sciatica 04/10/2017 Supplemental [...] Responsibilities: Independent Receives Help From: Family Active Supervisor Metal Cans: N/A Prior Level of Function Prior Level [...] of Care supervision is transferred to a [facility] Therapy Services Physical Therapist. Goals and/or [...] major depression (HCC) Sciatica Thoracic compression fracture ([facility]) Vitamin D deficiency [2] Past Surgical History: [...] not included. Speech-Language Pathology SPEECH LANGUAGE PATHOLOGY [facility] Bedside Swallow Evaluation Patient Name: Gonzalo [...] needed. Pt would benefit from skilled acute MARINE CARGO INSPECTOR services Ensure patient tolerance of the recommended [...] be evaluated. Dysphagia History: No history of MARINE CARGO INSPECTOR services in EMR with retrospective chart review Baseline Diet: Regular diet with thin liquids Current Diet: Dietary Orders (From admission, onward) Start Ordered 07/31/24 1031 Supplement:AM Snack, PM Snack; [place] Ensure Plus Until discontinued Question Answer Comment Frequency AM Snack Frequency PM Snack Select supplement: [place]illa Ensure Plus 07/31/24 1030 07/31/24 1031 Supplement:HS Snack; [place] Ensure Plus Until discontinued Question Answer Comment Frequency HS Snack Select supplement: [place] Ensure Plus 07/31/24 1030 07/30/24 2313 Adult [...] Problem List Diagnosis Date Noted Severe malnutrition ([facility]) ([facility]) 07/31/2024 Adult failure to thrive 07/30/2024 Falls frequently 09/20/2023 Unintentional weight loss 09/20/2023 Debility 09/20/2023 PFO (patent foramen ovale) 09/20/2023 Lumbar compression fracture, closed, initial encounter ([facility]) 02/13/2023 Nondisplaced fracture of neck of left femur ([facility]) 11/06/2022 Other specified complication of vascular prosthetic devices, implants and grafts, initial encounter ([facility]) 08/06/2021 Poor venous access 12/19/2019 H/O: CVA (cerebrovascular accident) 12/14/2019 Malignant neoplasm of exocervix ([facility]) 11/07/2019 S/P hysterectomy 11/07/2019 PNA (pneumonia) 08/02/2019 Leukocytosis 04/13/2018 Shortness of breath 04/13/2018 DDD (degenerative disc disease), cervical 04/12/2018 Recurrent major depression ([facility]) 04/12/2018 Chronic back pain 04/10/2017 COPD (chronic obstructive pulmonary disease) ([facility]) 04/10/2017 Pulmonary nodule 04/10/2017 Sciatica 04/10/2017 Supplemental [...] States was sent by PCP Shortness of [id number] y.o. who presents to the emergency department [...] Start: 07/31/24 Expected End: 08/07/24 Therapy Time MARINE CARGO INSPECTOR Individual Minutes Time In: 1518 Time Out: [...] original note were not included. PHYSICAL THERAPY [facility] Name/MRN: Gonzalo Deluca ([id number]) Date: 07/31/2024 Chart review completed. Patient is [...] not here- denies issues -denies assist status- MARINE CARGO INSPECTOR ordered per MNT protocol , will initiate [...] (interosseous) Fluid Accumulation: No significant fluid accumulation Ict Help Desk Technician Strength: na Nutrition Assessment: per MD-CHIEF COMPLAINT [...] lb) (08/06/24) % Weight Change (Calculated): -28.8 [place] Body Weight (lbs) (Calculated): 120 lbs [place] Body Weight (Kg) (Calculated): 55 kg % [place] Body Weight (Calculated): 74.2 % BMI (kg/m2) [...] Oral Nutrition Supplement Phillip Bradshaw RD Contact: *[phone] or secure chat documented in this encounter [facility] 08-08-2024 Plan of care note Problem: [...] by Sadie Rodriguez RN Outcome: Not Progressing [facility] 08-08-2024 Plan of care note Problem: [...] Goal: Promote nutritional intake Outcome: Not Progressing [facility] 08-07-2024 Note Formatting of this n ote might be different from the original. Care Management Progress Note -Pt started the appeals process yesterday for denied SNF stay. We now have 72 hours for a response from her insurance. -Notified Dr. Beverly -Updated clinicals faxed to [phone] -If the appeal process is upheld, pt will have to go home with [facility]. -wireless sales manager to follow and assist as needed. Length of Stay (Days): 6 GMLOS: 5.2 [facility] 08-07-2024 Note Formatting of this n ote might be different from the original. Care Management Progress Note -Pt started the appeals process yesterday for denied SNF stay. We now have 72 hours for a response from her insurance. -Notified Dr. Beverly -Updated clinicals faxed to [phone] -If the appeal process is upheld, pt will have to go home with [facility]. -wireless sales manager to follow and assist as needed. Length of Stay (Days): 6 GMLOS: 5.2 [facility] 08-07-2024 Note Care Management Prog ress Note -Pt started the appeals process yesterday for denied SNF stay. We now have 72 hours for a response from her insurance. -Notified Dr. Beverly -Updated clinicals faxed to [phone] -If the appeal process is upheld, pt will have to go home with [facility]. -wireless sales manager to follow and assist as needed. Length of Stay (Days): 6 GMLOS: 5.2 [facility] 08-07-2024 Note Hospitalist Progress Note 08/07/2024 Subjective: [...] status. Recent healthcare interactions include consultations with [facility], palliative care, pulmonology, orthopedic surgery, geriatrics, [...] appeal process to try to get into long term facility. She denies any fever cough or [...] left sided c (more content not included)... [facility] 08-06-2024 Plan of care note Problem: Knowledge [...] Problem Interventions Goal: Dietary Supplements Outcome: Progressing [facility] 08-06-2024 Note Formatting of this n ote might be different from the original. Spoke with pt earlier in the day to to determine if she wants to appeal the P2P decision denying SNF. Pt asked to go to [place]. She is in the process of trying to get to [facility] through her waiver services. She [...] Appeals number given to pt to call: [phone]. Appeals fax number: [phone]. Pt was calling as this CM was walking out of her room. wireless sales manager to follow and assist as needed. [facility] [employer] [facility] 08-06-2024 Note Formatting of this n ote might be different from the original. Spoke with pt earlier in the day to to determine if she wants to appeal the P2P decision denying SNF. Pt asked to go to [place]. She is in the process of trying to get to [facility] through her waiver services. She [...] Appeals number given to pt to call: [phone]. Appeals fax number: [phone]. Pt was calling as this CM was walking out of her room. wireless sales manager to follow and assist as needed. [facility] [facility] 08-06-2024 Note Formatting of this n ote might be different from the original. Spoke with patients daughter Karishma, regarding dc plans, who states that they would like to ideally get patient into long term and then get patient over to [facility] under Medicaid. This will require an insurance appeal for the long term facility. Shared this discussion with the TCC T [facility] 08-06-2024 Note Formatting of this n ote might be different from the original. Spoke with patients daughter Karishma, regarding dc plans, who states that they would like to ideally get patient into long term and then get patient over to [facility] under Medicaid. This will require an insurance appeal for the long term facility. Shared this discussion with the TCC [facility] 08-06-2024 Plan of care note Problem: [...] My discharge needs are met Outcome: Progressing [facility] 08-06-2024 Note Hospitalist Progress Note 08/06/2024 Subjective: [...] status. Recent healthcare interactions include consultations with [facility], palliative care, pulmonology, orthopedic surgery, geriatrics, [...] and lower extremity (more content not included)... [facility] 08-06-2024 Plan of care note Problem: Knowledge [...] is maintained or improved Outcome: Progressing T [facility] 08-05-2024 Plan of care note Problem: [...] Interventions Goal: Assess Nutritional Intake Outcome: Progressing [facility] 08-05-2024 Note Hospitalist Progress Note 08/05/2024 Subjective: [...] status. Recent healthcare interactions include consultations with [facility], palliative care, pulmonology, orthopedic surgery, geriatrics, [...] present. Mental Statu (more content not included)... [facility] 08-05-2024 Plan of care note Problem: Knowledge [...] Goal: Promote nutritional intake Outcome: Progressing T [facility] 08-04-2024 Note Formatting of this n ote might be different from the original. Was updated by attending that peer to peer was denied and patient would need to submit an appeal. The appeal number for [facility] is [phone] and fast appeal fax [phone] is not open on the weekend and this will need to be initiated on Tuesday. Discussed with patient and she wanted to discuss with her daughter prior to deciding to pursue appeal or discharge home with [facility]. She did state that her daughter was interested in getting her into an assistive living and that she has medicaid. Will update weekday TCC to follow.. [facility] 08-04-2024 Note Formatting of this n ote might be different from the original. Was updated by attending that peer to peer was denied and patient would need to submit an appeal. The appeal number for [facility] is [phone] and fast appeal fax [phone] is not open on the weekend and this will need to be initiated on Tuesday. Discussed with patient and she wanted to discuss with her daughter prior to deciding to pursue appeal or discharge home with [facility]. She did state that her daughter was interested in getting her into an assistive living and that she has medicaid. Will update weekday TCC to follow.. [facility] 08-04-2024 Plan of care note Problem: [...] My discharge needs are met Outcome: Progressing [facility] 08-04-2024 Note Formatting of this n ote might be different from the original. Called [facility] and spoke with [facility] is requesting peer to peer to be completed by 08/06 at 12 noon central standard time. Number for peer to peer is [phone] option 5. Will need members name, and ID number. Physicians are available 8-5 over the weekend central standard time. Did update attending with information to complete peer to peer. . [facility] 08-04-2024 Note Formatting of this n ote might be different from the original. Called [facility] and spoke with [facility] is requesting peer to peer to be completed by 08/06 at 12 noon central standard time. Number for peer to peer is [phone] option 5. Will need members name, and ID number. Physicians are available 8-5 over the weekend central standard time. Did update attending with information to complete peer to peer. . [facility] 08-04-2024 Note Hospitalist Progress Note 08/04/2024 Subjective: [...] status. Recent healthcare interactions include consultations with [facility], palliative care, pulmonology, orthopedic surgery, geriatrics, [...] or 1x CA (more content not included)... [facility] 08-04-2024 Plan of care note Problem: Knowledge [...] Progressing Goal: Promote nutritional intake Outcome: Progressing [facility] 08-03-2024 Note [facility] Respiratory Care Department Progress Note As [...] Respiratory in the care of this patient, [facility] 08-03-2024 Note Formatting of this n ote might be different from the original. Tasked weekend correctional casework specialist to follow for pending auth to [facility]. 7000 will need to be completed at the time of discharge. wireless sales manager to follow and assist as needed. [facility] 08-03-2024 Note Formatting of this n ote might be different from the original. Tasked weekend correctional casework specialist to follow for pending auth to [facility]. 7000 will need to be completed at the time of discharge. wireless sales manager to follow and assist as needed. [facility] 08-03-2024 Note Formatting of this n ote might be different from the original. Sent updated notes to [facility] via [facility] per TCC request. Await review and response regarding ability to accept. TCC notified. [facility] 08-03-2024 Note Formatting of this n ote might be different from the original. Sent updated notes to [facility] via [facility] per TCC request. Await review and response regarding ability to accept. TCC notified. T [facility] 08-03-2024 Note Formatting of this n ote might be different from the original. Care Management Progress Note -Discharge plan is [facility] -Tasked [facility] supervisor sheet manufacturing to start auth. -Tasked SHOE TRIMMER to send updated clinical notes to facility. -wireless sales manager to follow for auth approval and assist as needed. Length of Stay (Days): 2 GMLOS: 4.1 [facility] 08-03-2024 Note Formatting of this n ote might be different from the original. Care Management Progress Note -Discharge plan is [facility] -Tasked SHOE TRIMMER supervisor sheet manufacturing to start auth. -Tasked SHOE TRIMMER to send updated clinical notes to facility. -wireless sales manager to follow for auth approval and assist as needed. Length of Stay (Days): 2 GMLOS: 4.1 [facility] 08-03-2024 Note Care Management Prog ress Note -Discharge plan is [facility] -Tasked SHOE TRIMMER supervisor sheet manufacturing to start auth. -Tasked SHOE TRIMMER to send updated clinical notes to facility. -wireless sales manager to follow for auth approval and assist as needed. Length of Stay (Days): 2 GMLOS: 4.1 [facility] 08-03-2024 Plan of care note Problem: Knowledge [...] Interventions Goal: Assess Nutritional Intake Outcome: Progressing [facility] 08-03-2024 Note Hospitalist Progress Note 08/03/2024 Subjective: [...] status. Recent healthcare interactions include consultations with [facility], palliative care, pulmonology, orthopedic surgery, geriatrics, [...] 08/03/2024 0906 Last data filed at 08/02/2024 2151 Gross per 24 hour Intake 200 ml [...] more labs/studies orde (more content not included)... [facility] 08-03-2024 Plan of care note Problem: Knowledge [...] My discharge needs are met Outcome: Progressing [facility] 08-02-2024 Note Palliative Care Prog ress Note [...] short of breath when trying to eat. -Veterinary Laboratory Technician would be helpful. -BMI 15.28 -Albumin-->3.0 -Monitor. [...] Improve or Maintain Function/Quality of Life, Preserve [place]/Autonomy/Control, and Remain at Home Advanced Directives: DNR-CCA, DNI Functional Assessment: PPS 70% amb reduced; can't do normal work/some disease; full self care; normal or reduced intake; full LOC Prognosis: depends upon goals of care Spiritual Assessment: No spiritual distress identified Bereavement and Grief: To Be Determined PDMP/OARRS Reviewed: Yes-reviewed ROS: See palliative care ROS/ESAS below; All other systems were reviewed and are negative. Mize Symptom Assessment Score Mize Score Pain Score (if non-verbal, add .FLACC [...] Heart sounds: Nor (more content not included)... [facility] 08-02-2024 Note Hospitalist Progress Note 08/02/2024 [phone]: Please page me ([phone]) for patient care issues. [phone]: Please page [facility] night Hospitalist for any issues. Subjective: Admit Date: 07/30/2024 PCP: HERMINIA CASE MD Room#: B2-254/B2-254 B Interval History: Patient is sitting on the bed, still on 5 L nasal cannula saturating well. No signs of respiratory distress noticed Denies any cough or sputum production pain No other significant overnight issues. Adult diet Regular @[id number]@ 24HR INTAKE/OUTPUT: No intake or output data [...] prophylaxis: Lovenox daily. Disposition: PT OT recommending long term facility. Possible discharge in next 1 to 2 days. Pending Long arm cast placement -am labs, replace lytes prn -increase activity -DVT prophylaxis: [] Lovenox [] Heparin [] SCDs [x] Encourage ambulation [] Already on Anticoagulation Advance Directive: DNR-CCA Discharge planning: JAKI Bishop MD Division of Hospitalist Medicine Inpatient Medical Services/[facility]: [phone] Acute hypoxic respiratory failure [1] Past Medical History: Diagnosis Date Abnormal stress test Acute exacerbation of chronic obstructive pulmonary disease (HCC) 04/12/2018 Allergic rhinitis Arthritis Asthma Bronchitis Cancer (CMS/HCC) (HCC) skin Cervical cancer (HCC) Chest pain COPD (chronic obstructive pulmonary disease) ([facility]) USE OXYGEN 3 L AT NIGHT DDD (degenerative disc disease), cervical Defect, retina, with detachment right DJD (degenerative joint disease), lumbar Emphysema lung (HCC) Former smoker Hematuria SCHEDULED FOR THE PROCEDURE /SURGERY ON 02/11/2017 Hypokalemi (more content not included)... [facility] 08-02-2024 Note Formatting of this n ote might be different from the original. Referral placed to [facility] via [facility]port per TCC request. Await review and response regarding ability to accept. TCC notified. T [facility] 08-02-2024 Note Formatting of this n ote might be different from the original. Referral placed to [facility] via [facility] per TCC request. Await review and response regarding ability to accept. TCC notified. [facility] 08-02-2024 Note Referral placed to [facility] via [facility]port per TCC request. Await review and response regarding ability to accept. TCC notified. [facility] 08-02-2024 Note Formatting of this n ote might be different from the original. Care Management Progress Note -Spoke with pt at bedside for SNF choices. -Pt would like referrals sent to [facility], [facility], [facility], and [facility]. -Tasked SHOE TRIMMER to send those referrals. -Will speak with pt again once facility responses are in for facility of choice. -wireless sales manager to follow and assist as needed. Length of Stay (Days): 1 GMLOS: No GMLOS Documented -Spoke with pt and she has chosen [facility] as FOC. Informed facility. ADOD is [address] Bishop. Anticipate starting auth tomorrow. wireless sales manager to follow and assist as needed. [facility] 08-02-2024 Note Formatting of this n ote might be different from the original. Care Management Progress Note -Spoke with pt at bedside for SNF choices. -Pt would like referrals sent to [facility], [facility], and [facility]. -Tasked SHOE TRIMMER to send those referrals. -Will speak with pt again once facility responses are in for facility of choice. -wireless sales manager to follow and assist as needed. Length of Stay (Days): 1 GMLOS: No GMLOS Documented -Spoke with pt and she has chosen [facility] as FOC. Informed facility. ADOD is [address] Bishop. Anticipate starting auth tomorrow. wireless sales manager to follow and assist as needed. [facility] 08-02-2024 Note Care Management Prog ress Note -Spoke with pt at bedside for SNF choices. -Pt would like referrals sent to [facility], [facility] and [facility]. -Tasked SHOE TRIMMER to send those referrals. -Will speak with pt again once facility responses are in for facility of choice. -wireless sales manager to follow and assist as needed. Length of Stay (Days): 1 GMLOS: No GMLOS Documented -Spoke with pt and she has chosen [facility] as FOC. Informed facility. ADOD is [address] Bishop. Anticipate starting auth tomorrow. wireless sales manager to follow and assist as needed. [facility] 08-02-2024 Plan of care note Problem: Knowledge [...] My discharge needs are met Outcome: Progressing [facility] 08-02-2024 Hospital Discharg e instructions Gabriela [...] Information Primary Emergency Contact: Karishma Deluca Address: [address] [place] [address] of [facility] Mobile Relation: Daughter Secondary Emergency Contact: [...] disease), cervical Leukocytosis Malignant neoplasm of exocervix ([facility]) Recurrent major depression ([facility]) Pulmonary nodule Overview Signed 01/01/2022 6:48 AM [...] Dressing Independent Toileting Minimal assistance Feeding Independent Correctional Supply Supervisor Minimal assistance Med Delivery yes Wound Care [...] Date: 07/30/24 Discharging to Facility/ Agency Name: [facility] Address: [address] [place] [address] Fax: Dialysis Facility (if applicable) Name: Address: Dialysis Schedule: Phone: Fax: Clinical Quality Assurance Associate/Student Assistance Counselor signature: ICIAN SECTION Name: Gonzalo Starkssumeetbenji Prognosis: fair Condition at Discharge: stable Rehab Potential (if transferring to Rehab): good Recommended Labs or Other Treatments After Discharge: CBC and CMP The individual is being admitted to a nursing facility directly from an [facility] or a unit of a [facility] that is not operated by or licensed by [facility] under section 5119.14 or 5160-3-15.1 5 The individual requires the level of services provided by a nursing facility for the condition for which he or she was treated in the hospital and, Physician Certification: I certify the above information and transfer of Gonzalo Deluca is necessary for the continuing treatment of the diagnosis listed and that she requires long term facility for less than 30 days. Update [...] status. Recent healthcare interactions include consultations with [facility], palliative care, pulmonology, orthopedic surgery, geriatrics, [...] respiratory failure and severe emphysema. Plan: - MARINE CARGO INSPECTOR evaluation: recommended regular solids with thin liquids, [...] adjustments PHYSICIAN SIGNATURE: documented in this encounter [facility] 08-02-2024 Plan of care note Problem: [...] My discharge needs are met Outcome: Progressing [facility] 08-01-2024 Note Hospitalist Progress Note 08/01/2024 [phone]: Please page me ([phone]) for patient care issues. [phone]: Please page [facility] night Hospitalist for any issues. Subjective: Admit Date: 07/30/2024 PCP: HERMINIA CASE MD Room#: B2-254/B2-254 B Interval History: Patient is sitting on the chair, denies any chest pain shortness of breath or palpitations Denies any upper extremity pain. No other significant overnight issues. Adult diet Regular @[id number]@ 24HR INTAKE/OUTPUT: Intake/Output Summary (Last 24 hours) [...] prophylaxis: Lovenox daily. Disposition: PT OT recommending long term facility. Possible discharge in next 1 to 2 days. Pending Long arm cast placement -am labs, replace lytes prn -increase activity -DVT prophylaxis: [] Lovenox [] Heparin [] SCDs [x] Encourage ambulation [] Already on Anticoagulation Advance Directive: DNR-CCA Discharge planning: JEZD Dejuanbryanna Bishop MD Division of Hospitalist Medicine Inpatient Medical Services/[facility]: [phone] [1] Past Medical History: Diagnosis Date Abnormal [...] D deficiency [2] (more content not included)... [facility] 08-01-2024 Note Formatting of this n ote [...] case she decides before then on choices. -wireless sales manager to follow and assist as needed. Length of Stay (Days): 1 GMLOS: No GMLOS Documented [facility] 08-01-2024 Note Formatting of this n [...] case she decides before then on choices. -wireless sales manager to follow and assist as needed. Length of Stay (Days): 1 GMLOS: No GMLOS Documented T [facility] 08-01-2024 Note Care Management Prog ress Note -Met with pt at bedside. Introduced self and role. -PT/OT recommending SNF. Pt is agreeable. -SNF list given to pt for her to look over for SNF choices. -Will follow up tomorrow for SNF choices. She also has contact information for CM in case she decides before then on choices. -wireless sales manager to follow and assist as needed. Length of Stay (Days): 1 GMLOS: No GMLOS Documented [facility] 08-01-2024 Consult note Formatting of th is note is different from the original. [facility], Pulmonary Medicine [address] [place] [id number] Patient - Gonzalo Deluca - 1955 Date [...] hematemesis melena hematuria Apparently not seeing any doctor of pharmacy recently Was on Dulera Spiriva and rescue [...] - Unmet Transportation Needs (06/06/2024) Received from [facility] PRAPARE - Transportation Lack of Transportation (Medical): Yes Lack of Transportation (Non-Medical): No Physical Activity: Insufficiently Active (07/31/2024) Exercise Vital Sign Days of Exercise per Week: 3 days Minutes of Exercise per Session: 20 min Stress: No Stress Concern Present (07/31/2024) [place] [facility] [employer] [facility] - Occupational Stress Questionnaire Feeling of Stress : Only a little Recent Concern: Stress - Stress Concern Present (06/06/2024) Received from [facility] of Occupational Health - Occupational Stress Questionnaire Feeling of Stress : To some extent Social Connections: Socially Isolated (07/31/2024) Social Connection and Isolation Panel [NHANES] Frequency of Communication with Friends and Family: Three times a week Frequency of Social Gatherings with Friends and Family: Three times a week Attends Mandaen Services: Never Active Member of Clubs or [...] 325 ml Output -- Net 325 ml @[id number]@ Physical Exam General appearance: Awake, alert, no [...] be severe no current PFT available on [facility] 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 major [...] prosthetic devices, implants and grafts, initial encounter ([facility]) Chronic back pain COPD (chronic obstructive pulmonary disease) ([facility]) DDD (degenerative disc disease), cervical Leukocytosis Malignant neoplasm of exocervix ([facility]) Recurrent major depression ([facility]) Pulmonary nodule S/P hysterectomy Sciatica Shortness of breath Supplemental oxygen dependent PNA (pneumonia) H/O: CVA (cerebrovascular accident) Former smoker Nondisplaced fracture of neck of left femur ([facility]) Lumbar compression fracture, closed, initial encounter ([facility]) Severe malnutrition (CMS/HCC) ([facility]) Falls frequently Unintentional weight loss Debility PFO (patent foramen ovale) Adult failure to thrive [2] Past Medical History: Diagnosis Date Abnormal stress test Acute exacerbation of chronic obstructive pulmonary disease ([facility]) 04/12/2018 Allergic rhinitis Arthritis Asthma Bronchitis Cancer (CMS/HCC) ([facility]) skin Cervical cancer ([facility]) Chest pain COPD (chronic obstructive pulmonary disease) [...] [8] Allergies Allergen Reactions Pollen Extract Unknown [facility] 08-01-2024 Consult note Formatting of th is note is different from the original. [facility], Pulmonary Medicine [address], [place] [address] [id number] 1955 Date of Admission - 07/30/2024 [...] hematemesis melena hematuria Apparently not seeing any doctor of pharmacy recently Was on Dulera Spiriva and rescue [...] - Unmet Transportation Needs (06/06/2024) Received from [facility] PRAPARE - Transportation Lack of Transportation (Medical): Yes Lack of Transportation (Non-Medical): No Physical Activity: Insufficiently Active (07/31/2024) Exercise Vital Sign Days of Exercise per Week: 3 days Minutes of Exercise per Session: 20 min Stress: No Stress Concern Present (07/31/2024) [place] [facility] [employer] [facility] - Occupational Stress Questionnaire Feeling of Stress : Only a little Recent Concern: Stress - Stress Concern Present (06/06/2024) Received from [facility] of Occupational Health - Occupational Stress Questionnaire Feeling of Stress : To some extent Social Connections: Socially Isolated (07/31/2024) Social Connection and Isolation Panel [NHANES] Frequency of Communication with Friends and Family: Three times a week Frequency of Social Gatherings with Friends and Family: Three times a week Attends Mandaen Services: Never Active Member of Clubs or [...] 325 ml Output -- Net 325 ml @[id number]@ Physical Exam General appearance: Awake, alert, no [...] be severe no current PFT available on [facility] 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 major [...] prosthetic devices, implants and grafts, initial encounter ([facility]) Chronic back pain COPD (chronic obstructive pulmonary disease) ([facility]) DDD (degenerative disc disease), cervical Leukocytosis Malignant neoplasm of exocervix ([facility]) Recurrent major depression ([facility]) Pulmonary nodule S/P hysterectomy Sciatica Shortness of breath Supplemental oxygen dependent PNA (pneumonia) H/O: CVA (cerebrovascular accident) Former smoker Nondisplaced fracture of neck of left femur ([facility]) Lumbar compression fracture, closed, initial encounter ([facility]) Severe malnutrition (CMS/HCC) ([facility]) Falls frequently Unintentional weight loss Debility PFO (patent foramen ovale) Adult failure to thrive [2] Past Medical History: Diagnosis Date Abnormal stress test Acute exacerbation of chronic obstructive pulmonary disease ([facility]) 04/12/2018 Allergic rhinitis Arthritis Asthma Bronchitis Cancer (CMS/HCC) ([facility]) skin Cervical cancer ([facility]) Chest pain COPD (chronic obstructive pulmonary disease) ([facility]) USE OXYGEN 3 L AT NIGHT DDD (degenerative disc disease), cervical Defect, retina, with detachment right DJD (degenerative joint disease), lumbar Emphysema lung ([facility]) Former smoker Hematuria SCHEDULED FOR THE PROCEDURE [...] not here- denies issues -denies assist status- MARINE CARGO INSPECTOR ordered per MNT protocol , will initiate [...] (interosseous) Fluid Accumulation: No significant fluid accumulation Ict Help Desk Technician Strength: na Associated Order(s): IP CONSULT TO [...] -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 -Veterinary Laboratory Technician would be helpful. -BMI 15.28 -Albumin-->3.0 -Monitor. [...] with primary attending or other consultants, Electronic service order dispatcher chief of medications, tests or procedures, Obtaining and/or [...] detailed in the note above. Imelda Bernard, SPRAYING MACHINE OPERATOR - CARD PLACER Palliative Care Assessments: Goals of care: Continue Current Management, Live Longer, extend life as much as possible, Improve or Maintain Function/Quality of Life, Preserve [place]/Autonomy/Control, and Remain at Home Advanced Directives: DNR Functional Assessment: PPS 70% amb reduced; can't do normal work/some disease; full self care; normal or reduced intake; full LOC Prognosis: depends upon goals of care Spiritual Assessment: No spiritual distress identified Bereavement and Grief: To Be Determined PDMP/OARRS Reviewed: Yes-reviewed Social history: Marital status: Children: not addressed Living status: with daughter Work history: retired [place] status: No Mandaen sharla: None ROS: See palliative care ROS/ESAS below; All other systems were reviewed and are negative. Mize Symptom Assessment Score Mize Score Pain Score (if non-verbal, add .FLACC [...] EDT Associated Order(s): IP CONSULT TO GERIATRICS [facility] Geriatric Medicine Inpatient Consult Service [...] at [facility] for more in depth [...] fracture, Vitamin D deficiency, anxiety, presented to [facility] 07/[facility]24 with complaints of weight [...] memory issues for a year with progression. [place] she was managing her medications ok. Daughter [...] 350 ms QTC Interval 439 ms P [place] 53 degrees QRS [place] -35 degrees T Wave [place] 43 degrees ND Interval 137 ms CBC auto differential Collection [...] 09/19/2023 Osteoporosis Palpitations Pneumonia Recurrent major depression ([facility]) Sciatica Thoracic compression fracture ([facility]) Vitamin D deficiency [4] Past Surgical History: [...] cancer Neg Hx documented in this encounter [facility] 08-01-2024 Note OCCUPATIONAL THERAPY [facility] Initial Evaluation Name/MRN: Gonzalo Deluca ([id number]) Evaluation Date: 08/01/2024 Date of : 1955 Admission Date: 07/30/2024 4:40 PM Age: 68 y.o. Room/Bed: B2-254/B2-254 B Having reviewed the treatment plan and goals for this patient, I certify that the plan of care below is medically necessary and appropriate. Discharge Recommendation: [facility] Facility, Continue to assess pending progress Equipment [...] 09/20/2023 Lumbar compression fracture, closed, initial encounter ([facility]) 02/13/2023 Nondisplaced fracture of neck of left femur ([facility]) 11/06/2022 Other specified complication of vascular prosthetic devices, implants and grafts, initial encounter ([facility]) 08/06/2021 Poor venous access 12/19/2019 H/O: CVA (cerebrovascular accident) 12/14/2019 Malignant neoplasm of exocervix ([facility]) 11/07/2019 S/P hysterectomy 11/07/2019 PNA (pneumonia) 08/02/2019 Leukocytosis 04/13/2018 Shortness of breath 04/13/2018 DDD (degenerative disc disease), cervical 04/12/2018 Recurrent major depression ([facility]) 04/12/2018 Chronic back pain 04/10/2017 COPD (chronic obstructive pulmonary disease) ([facility]) 04/10/2017 Pulmonary nodule 04/10/2017 Sciatica 04/10/2017 Supplemental [...] Responsibilities: Independent Receives Help From: Family Active Supervisor Metal Cans: N/A Prior Level of Function Prior Level [...] complete bed mob (more content not included)... 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 -Veterinary Laboratory Technician would be helpful. -BMI 15.28 -Albumin-->3.0 -Monitor. [...] emphysema. -Pulmonology consulted, await recs. Discussed with IMMIGRATION ATTORNEY Leann this AM. She will need follow [...] Improve or Maintain Function/Quality of Life, Preserve [place]/Autonomy/Control, and Remain at Home Advanced Directives: DNR Functional Assessment: PPS 70% amb reduced; can't do normal work/some disease; full self care; normal or reduced intake; full LOC Prognosis: depends upon goals of care Spiritual Assessment: No spiritual distress identified Bereavement and Grief: To Be Determined PDMP/OARRS Reviewed: Yes-reviewed ROS: See palliative care ROS/ESAS below; All other systems were reviewed and are negative. Mize Symptom Assessment Score Mize Score Pain Score (if non-verbal, add .FLACC [...] Rate and Rhythm: (more content not included)... [facility] 08-01-2024 Plan of care note Problem: Knowledge [...] My discharge needs are met Outcome: Progressing [facility] 07-31-2024 Note Hospitalist Progress Note 07/31/[phone]: Please page me ([phone]) for patient care issues. [phone]: Please page IMS night Hospitalist for any issues. Subjective: Admit Date: 07/30/2024 PCP: HERMINIA CASE MD Room#: B2-254/B2-254 B Interval History: Patient is sitting on the bed, denies any chest pain or shortness of breath. Denies any abdominal pain nausea or vomitings No other significant overnight issues. Adult diet Regular @[id number]@ 24HR INTAKE/OUTPUT: Intake/Output Summary (Last 24 hours) [...] prophylaxis: Lovenox daily. Disposition: PT OT recommending long term facility. Possible discharge in next 1 to 2 days. Pending Long arm cast placement -am labs, replace lytes prn -increase activity -DVT prophylaxis: [] Lovenox [] Heparin [] SCDs [x] Encourage ambulation [] Already on Anticoagulation Advance Directive: DNR-CCA Discharge planning: TBD Dejuan Bishop MD Division of Hospitalist Medicine Inpatient Medical Services/[facility]: [phone] [1] Past Medical History: Diagnosis Date Abnormal [...] Sciatica Thoracic compressi (more content not included)... [facility] 07-31-2024 Note PHYSICAL THERAPY [facility] Initial Evaluation Name/MRN: Gonzalo Deluca ([id number]) Evaluation Date: 07/31/2024 Date of : 1955 Admission Date: 07/30/2024 4:40 PM Age: 68 y.o. Room/Bed: [facility]254/[facility] B Discharge Recommendation: Continue to assess pending progress, [facility] Facility Other: TBD at next level of [...] Problem List Diagnosis Date Noted Severe malnutrition ([facility]) ([facility]) 07/31/2024 Adult failure to thrive 07/30/2024 Falls frequently 09/20/2023 Unintentional weight loss 09/20/2023 Debility 09/20/2023 PFO (patent foramen ovale) 09/20/2023 Lumbar compression fracture, closed, initial encounter ([facility]) 02/13/2023 Nondisplaced fracture of neck of left femur ([facility]) 11/06/2022 Other specified complication of vascular prosthetic devices, implants and grafts, initial encounter ([facility]) 08/06/2021 Poor venous access 12/19/2019 H/O: CVA (cerebrovascular accident) 12/14/2019 Malignant neoplasm of exocervix ([facility]) 11/07/2019 S/P hysterectomy 11/07/2019 PNA (pneumonia) 08/02/2019 Leukocytosis 04/13/2018 Shortness of breath 04/13/2018 DDD (degenerative disc disease), cervical 04/12/2018 Recurrent major depression ([facility]) 04/12/2018 Chronic back pain 04/10/2017 COPD (chronic obstructive pulmonary disease) ([facility]) 04/10/2017 Pulmonary nodule 04/10/2017 Sciatica 04/10/2017 Supplemental [...] Responsibilities: Independent Receives Help From: Family Active Supervisor Metal Cans: N/A Prior Level of Function Prior Level [...] Sit to sanchez (more content not included)... [facility] 07-31-2024 Note Formatting of this n ote might be different from the original. Anchor Operator following case for Discharge Needs. T [facility] 07-31-2024 Note Formatting of this n ote might be different from the original. Anchor Operator following case for Discharge Needs. T [facility] 07-31-2024 Consult note Associated Order (s): IP CONSULT TO DIETITIAN Images from the original note were not included. Nutrition Assessment Type and Reason for Visit: Initial, Consult (poor po - needs high calorie supplement) Nutrition Recommendations/Plan: Suggest to continue regular diet to promote intake. 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 -Veterinary Laboratory Technician would be helpful. -BMI 15.28 -Albumin-->3.0 -Monitor. [...] with primary attending or other consultants, Electronic service order dispatcher chief of medications, tests or procedures, Obtaining and/or [...] detailed in the note above. Imelda Bernard, SPRAYING MACHINE OPERATOR - CARD PLACER Palliative Care Assessments: Goals of care: Continue Current Management, Live Longer, extend life as much as possible, Improve or Maintain Function/Quality of Life, Preserve [place]/Autonomy/Control, and Remain at Home Advanced Directives: DNR [...] with daughter Work history: retired status: No Mandaen sahrla: None ROS: See palliative care ROS/ESAS below; All other systems were reviewed and are negative. Mize Symptom Assessment Score Mize Score Pain Score (if non-verbal, add .FLACC [...] BSO AND PELVIC LYMPH; DR. ZIYAD MENENDEZ [facility] OTHER SURGICAL HISTORY Left 12/19/2019 Med Port [...] العراقي MD at 08/01/2024 5:26 PM EDT [facility] 07-31-2024 Note Formatting of this n ote is different from the original. Images from the original note were not included. [facility] Palliative Care Transitions of [...] short of breath when trying to eat. -Veterinary Laboratory Technician would be helpful. -BMI 15.28 -Albumin-->3.0 -Monitor. [...] Skilled Rehab Facility FACILITY/HOME CARE AGENCY NAME: [facility] Follow up with [facility] on office to call patient. [...] SIGNED: DB Aggarwal CNP 08/03/2024, 10:20 AM [facility] 07-31-2024 Note Formatting of this n ote is different from the original. Images from the original note were not included. [facility] Palliative Care Transitions of [...] short of breath when trying to eat. -Veterinary Laboratory Technician would be helpful. -BMI 15.28 -Albumin-->3.0 -Monitor. [...] Skilled Rehab Facility FACILITY/HOME CARE AGENCY NAME: [facility] Follow up with [facility] on office to call patient. [...] SIGNED: DB Aggarwal CNP 08/03/2024, 10:20 AM [facility] 07-31-2024 Note Formatting of this n [...] scheduled appointment 93% on 5L last read [facility] 07-31-2024 Note Formatting of this n [...] scheduled appointment 93% on 5L last read [facility] 07-31-2024 Consult note Associated Order (s): IP CONSULT TO GERIATRICS [facility] Geriatric Medicine Inpatient Consult Service [...] at [facility] for more in depth [...] fracture, Vitamin D deficiency, anxiety, presented to [facility] on 07/30/24 with complaints of weight [...] memory issues for a year with progression. [place] she was managing her medications ok. Daughter [...] 350 ms QTC Interval 439 ms P [place] 53 degrees QRS [place] -35 degrees T Wave [place] 43 degrees ND Interval 137 ms CBC auto differential Collection [...] Bronchitis Cancer (CMS/HCC) (HCC) skin Cervical cancer ([facility]) Chest pain COPD (chronic obstructive pulmonary disease) ([facility]) USE OXYGEN 3 L AT NIGHT DDD (degenerative disc disease), cervical Defect, retina, with detachment right DJD (degenerative joint disease), lumbar Emphysema lung ([facility]) Former smoker Hematuria SCHEDULED FOR THE PROCEDURE /SURGERY ON 02/11/2017 Hypokalemia Lung nodules Near syncope 09/19/2023 Osteoporosis Palpitations Pneumonia Recurrent major depression ([facility]) Sciatica Thoracic compression fracture ([facility]) Vitamin D deficiency [4] Past Surgical History: [...] Known Problems Brother Uterine cancer Neg Hx [facility] 07-31-2024 Consult note Associated Order (s): [...] up to 10 days. 10/16/23 10/26/23 Janneth Godienz PA-C mirtazapine (Remeron) 15 MG tablet Take [...] Known Problems Brother Uterine cancer Neg Hx [facility] 07-30-2024 History and physical note History and Physical [facility] Gonzalo Deluca : 1955 AGE 68 [...] Allergic rhinitis Arthritis Asthma Bronchitis Cancer (CMS/HCC) ([facility]) skin Cervical cancer (HCC) Chest pain COPD (chronic obstructive pulmonary disease) ([facility]) USE OXYGEN 3 L AT NIGHT DDD (degenerative disc disease), cervical Defect, retina, with detachment right DJD (degenerative joint disease), lumbar Emphysema lung ([facility]) Former smoker Hematuria SCHEDULED FOR THE PROCEDURE /SURGERY ON 02/11/2017 Hypokalemia Lung nodules Near syncope 09/19/2023 Osteoporosis Palpitations Pneumonia Recurrent major depression ([facility]) Sciatica Thoracic compression fracture ([facility]) Vitamin D deficiency Past Surgical History: Procedure [...] 07/30/2024 350 QTC Interval 07/30/2024 439 P [place] 07/30/2024 53 QRS [place] 07/30/2024 -35 T Wave [place] 07/30/2024 43 ND Interval 07/30/2024 137 Auto WBC 07/30/2024 8.9 [...] QT Interval 350 QTC Interval 439 P [place] 53 QRS [place] -35 T Wave [place] 43 ND Interval 137 Impression Sinus rhythm Left axis [...] placed in a splint. She has seen [facility] orthopedics in the past they will be [...] Time spent on admission 07/30/2024 Gonzalo Deluca [id number] Any scheduled follow up appointments Future Appointments Date Time Provider Department Center 09/04/2024 2:30 PM [facility] 1 [facility] None Extended Emergency Contact Information Primary Emergency Contact: Karishma Deluca [address]: [address] [place] [address] of [facility] Mobile Relation: Daughter Secondary Emergency Contact: Jace Deluca Mobile Relation: Son Portions of this note may be electronically transcribed. Please forward a copy of this H&P to the primary care physician. [employer] Work Phone: 07-30-2024 Note History and Physical [facility] Gonzalo Deluca : 1955 AGE 68 [...] Chest pain COPD (chronic obstructive pulmonary disease) ([facility]) USE OXYGEN 3 L AT NIGHT DDD (degenerative disc disease), cervical Defect, retina, with detachment right DJD (degenerative joint disease), lumbar Emphysema lung ([facility]) Former smoker Hematuria SCHEDULED FOR THE PROCEDURE /SURGERY ON 02/11/2017 Hypokalemia Lung nodules Near syncope 09/19/2023 Osteoporosis Palpitations Pneumonia Recurrent major depression ([facility]) Sciatica Thoracic compression fracture ([facility]) Vitamin D deficiency Past Surgical History: Procedure [...] spray 2 sprays (more content not included)... [facility] 07-30-2024 History and physical note History and Physical [facility] Gonzalo Deluca : 1955 AGE 68 [...] Bronchitis Cancer (CMS/HCC) (HCC) skin Cervical cancer ([facility]) Chest pain COPD (chronic obstructive pulmonary disease) ([facility]) USE OXYGEN 3 L AT NIGHT DDD (degenerative disc disease), cervical Defect, retina, with detachment right DJD (degenerative joint disease), lumbar Emphysema lung ([facility]) Former smoker Hematuria SCHEDULED FOR THE PROCEDURE /SURGERY ON 02/11/2017 Hypokalemia Lung nodules Near syncope 09/19/2023 Osteoporosis Palpitations Pneumonia Recurrent major depression ([facility]) Sciatica Thoracic compression fracture ([facility]) Vitamin D deficiency Past Surgical History: Procedure [...] 07/30/2024 350 QTC Interval 07/30/2024 439 P [place] 07/30/2024 53 QRS [place] 07/30/2024 -35 T Wave [place] 07/30/2024 43 ND Interval 07/30/2024 137 Auto WBC 07/30/2024 8.9 [...] QT Interval 350 QTC Interval 439 P [place] 53 QRS [place] -35 T Wave [place] 43 ND Interval 137 Impression Sinus rhythm Left axis [...] placed in a splint. She has seen [facility] orthopedics in the past they will be [...] Time spent on admission 07/30/2024 Gonzalo Deluca [id number] Any scheduled follow up appointments Future Appointments Date Time Provider Department Center 09/04/2024 2:30 PM [facility] 1 [facility] None Extended Emergency Contact Information Primary Emergency Contact: Karishma Deluca Address: [address] [place] [address] [place] [phone] [facility] Mobile Relation: Daughter Secondary Emergency Contact: Jace Deluca Mobile Relation: Son Portions of this note may be electronically transcribed. Please forward a copy of this H&P to the primary care physician. documented in this encounter [facility] 07-30-2024 Emergency department Note Associated Order(s): Splint Application EMERGENCY DEPARTMENT ENCOUNTER Pt Name: Gonzalo Deluca Birthdate 1955 Date of evaluation: 07/30/2024 ED Provider: Luis E Keatign DO CHIEF COMPLAINT Chief Complaint Patient presents [...] Chest pain COPD (chronic obstructive pulmonary disease) ([facility]) USE OXYGEN 3 L AT NIGHT DDD (degenerative disc disease), cervical Defect, retina, with detachment right DJD (degenerative joint disease), lumbar Emphysema lung (HCC) Former smoker Hematuria SCHEDULED FOR THE PROCEDURE /SURGERY ON 02/11/2017 Hypokalemia Lung nodules Near syncope 09/19/2023 Osteoporosis Palpitations Pneumonia Recurrent major depression ([facility]) Sciatica Thoracic compression fracture ([facility]) Vitamin D deficiency SURGICAL HISTORY Past Surgical History: Procedure Laterality Date CYSTOSCOPY 01/12/2017 OFFICE PROCEDURE CYSTOSCOPY 02/11/2017 C&P bladder biopsy EYE SURGERY detached retina 1994 HYSTERECTOMY 11/06/2019 ABDOMINAL RADICAL HYSTERECTOMY WITH BSO AND PELVIC LYMPH; DR. ZIYAD MARISCAL [facility] OTHER SURGICAL HISTORY Left 12/19/2019 Med [...] Resource Strain: Low Risk (06/06/2024) Received from [facility] Overall Financial Resource Strain (CARDIA) Difficulty of Paying Living Expenses: Not very hard Food Insecurity: No Food Insecurity (06/06/2024) Received from [facility] Hunger Vital Sign Worried About Running Out of Food in the Last Year: Never true Ran Out of Food in the Last Year: Never true Transportation Needs: Unmet Transportation Needs (06/06/2024) Received from [facility] PRAPARE - Transportation Lack of Transportation (Medical): Yes Lack of Transportation (Non-Medical): No Physical Activity: Inactive (06/06/2024) Received from [facility] Exercise Vital Sign Days of Exercise per Week: 0 days Minutes of Exercise per Session: 0 min Stress: Stress Concern Present (06/06/2024) Received from [facility] [place] [employer] - Occupational Stress Questionnaire Feeling of Stress : To some extent Social Connections: Unknown (06/06/2024) Received from [facility] Social Connection and Isolation Panel [NHANES] Frequency of Communication with Friends and Family: Twice a week Frequency of Social Gatherings with Friends and Family: Never Attends Mandaen Services: Never Active Member of Clubs or [...] swelling Alternatives discussed: Delayed treatment and referral [place] protocol: Patient identity confirmed: Verbally with patient [...] DO 07/30/24 [id number] documented in this encounter [facility] 07-30-2024 Physician Emergency department Note Associated [...] Chest pain COPD (chronic obstructive pulmonary disease) ([facility]) USE OXYGEN 3 L AT NIGHT DDD (degenerative disc disease), cervical Defect, retina, with detachment right DJD (degenerative joint disease), lumbar Emphysema lung (HCC) Former smoker Hematuria SCHEDULED FOR THE PROCEDURE /SURGERY ON 02/11/2017 Hypokalemia Lung nodules Near syncope 09/19/2023 Osteoporosis Palpitations Pneumonia Recurrent major depression ([facility]) Sciatica Thoracic compression fracture ([facility]) Vitamin D deficiency SURGICAL HISTORY Past Surgical [...] Resource Strain: Low Risk (06/06/2024) Received from [facility] Overall Financial Resource Strain (CARDIA) Difficulty of Paying Living Expenses: Not very hard Food Insecurity: No Food Insecurity (06/06/2024) Received from [facility] Hunger Vital Sign Worried About Running Out of Food in the Last Year: Never true Ran Out of Food in the Last Year: Never true Transportation Needs: Unmet Transportation Needs (06/06/2024) Received from [facility] PRAPARE - Transportation Lack of Transportation (Medical): Yes Lack of Transportation (Non-Medical): No Physical Activity: Inactive (06/06/2024) Received from [facility] Exercise Vital Sign Days of Exercise per Week: 0 days Minutes of Exercise per Session: 0 min Stress: Stress Concern Present (06/06/2024) Received from [facility] [place] [employer] - Occupational Stress Questionnaire Feeling of Stress : To some extent Social Connections: Unknown (06/06/2024) Received from [facility] Social Connection and Isolation Panel [NHANES] Frequency of Communication with Friends and Family: Twice a week Frequency of Social Gatherings with Friends and Family: Never Attends Mandaen Services: Never Active Member of Clubs or [...] changes. Report Dictated on Electronically Signed By: Hnoorio Andino MD Electronically Signed Date/Time: 07/30/2024 5:42 [...] swelling Alternatives discussed: Delayed treatment and referral [place] protocol: Patient identity confirmed: Verbally with patient [...] Medicine Provider Luis E Keating DO [id number]/[id number] [facility] 07-30-2024 Note HNO ID: [id number] Author: HERMINIA CASE MD Service: ? Author Type: Physician Type: Progress Notes Filed: 07/30/2024 16:33 Note Text: 07/30/2024 Recording using OptuLink software for draft documentation of the visit was discussed with the patient/authorized sales representative printing supplies; all questions welcomed and answered. Patient/authorized sales representative printing supplies agreed to proceed HPI: Gonzalo is a [...] Diagnosis Date COPD (chronic obstructive pulmonary disease) ([facility]) DDD (degenerative disc disease), lumbar Encounter for [...] skin lesions. HEAD (more content not included)... [facility] 07-30-2024 History of Presen t illness Narrative 07/30/2024 Recording using ambient Simplebooklet software for draft documentation of the visit was discussed with the patient/authorized sales representative printing supplies; all questions welcomed and answered. Patient/authorized sales representative printing supplies agreed to proceed HPI: Gonzalo is a [...] cardiac events. - Patient to go to [place] ER for stabilization of oxygen levels and [...] oxygenation. - Consideration for admission to a long term facility for nutritional support and rehabilitation. - Patient and family agree to ER visit for evaluation of failure to thrive and potential admission. Orders placed during this encounter: No orders found for this visit on 07/30/24. The patient indicates understanding of these issues and agrees with the plan of care. Red flag symptoms reviewed if needed. Herminia Case MD documented in this encounter [facility] 07-23-2024 Telephone encounter Note Prescription [...] Shay LPN July 23, 2024 11:22 AM [facility] 07-23-2024 Miscellaneous Notes Prescription Refill [...] 2024 11:22 AM documented in this encounter [facility] 07-02-2024 Telephone encounter Note Request completed and faxed. [facility] 07-02-2024 Miscellaneous Notes Request completed and faxed. Orders signed and in outbox. Please fax. Thank you, Leona Castañeda APRN.CARD PLACER Type of letter/form/fax request - Assisted living orders Form received from [facility] on 06/29/24 floor and placed on MD desk () for completion. Completed form needs to be faxed to [phone]. Route to [place] when form completed for processing documented in this encounter [facility] 07-02-2024 Telephone encounter Note Orders signed and in outbox. Please fax. Thank you, Leona Castañeda APRN.CARD PLACER [facility] Work Phone: 06-30-2024 Telephone encounter Note Type of letter/form/fax request - Assisted living orders Form received from [facility] on 06/29/24 floor and placed on MD desk () for completion. Completed form needs to be faxed to [phone]. Route to [place] when form completed for processing [facility] 06-26-2024 Telephone encounter Note Prescription [...] Shay LPN June 26, 2024 9:32 AM [facility] 06-26-2024 Miscellaneous Notes Prescription Refill [...] 2024 9:32 AM documented in this encounter [facility] 06-26-2024 Telephone encounter Note Prescription [...] Patel MA June 26, 2024 8:38 AM [facility] 06-26-2024 Miscellaneous Notes Prescription Refill [...] 2024 8:38 AM documented in this encounter [facility] 06-07-2024 Telephone encounter Note Herminia Case MD Thank you for the referral. Our first available date for a therapy start of care is 06/11/24. Please let us know if this is acceptable for you and the patient. Thank you , Maddi Valero LPN June 07, 2024 5:05 PM [facility] Work Phone: 06-07-2024 Miscellaneous Notes Herminia Case MD Thank you for the referral. Our first available date for a therapy start of care is 06/11/24. Please let us know if this is acceptable for you and the patient. Thank you , Maddi Valero LPN June 07, 2024 5:05 PM documented in this encounter [facility] 06-06-2024 Telephone encounter Note Herminia Case MD Thank you for the referral for Gonzalo Deluca to receive home care services through [facility]. At this time, the office note is [...] patient for. Thank you, Erna Diaz LPN [facility] Work Phone: 06-06-2024 Miscellaneous Notes Herminia Case MD Thank you for the referral for Gonzalo Deluca to receive home care services through [facility]. At this time, the office note is not yet completed for us to review for CMS guidelines. Please let us know once you have an opportunity to complete it so that we can review for CMS. Also, per CMS guidelines your office note needs to include a discussion of [facility] with the following: - why is C needed - why is the patient homebound - what is the diagnosis that [facility] is seeing the patient for. Thank you, Erna Diaz LPN documented in this encounter [facility] 06-06-2024 Note HNO ID: [id number] Author: HERMINIA CASE MD Service: ? Author Type: Physician Type: Progress Notes Filed: 06/07/2024 16:23 Note Text: VIRTUAL VISIT PROGRESS NOTE This is a virtual visit using [employer] Video Visit. It required patient-provider interaction for the medical decision making as documented below. I have communicated my name and active licensure. The patient's identity and physical location were verified at the time of this visit. Either the patient or their legal sales representative printing supplies has been informed of the risks and [...] major depressive di (more content not included)... [facility] 06-06-2024 History of Presen t illness Narrative VIRTUAL VISIT PROGRESS NOTE This is a virtual visit using [employer] Video Visit. It required patient-provider interaction for the medical decision making as documented below. I have communicated my name and active licensure. The patient's identity and physical location were verified at the time of this visit. Either the patient or their legal sales representative printing supplies has been informed of the risks and [...] visit: Panlobular emphysema (HCC) - CONSULT TO [facility] - pt cannot drive, has severe anxiety when leaving the house due to oxygen requirements, falls frequently, short of breath with exertion. 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 Moderate episode of recurrent major depressive disorder (HCC) - increase to 30 mg, mirtazapine (REMERON) 15 mg tablet; Take 2 tablet by mouth daily at bedtime. Chronic respiratory failure with hypoxia (HCC) - CONSULT TO [facility] There are no Patient Instructions on file for this visit. Herminia Case MD documented in this encounter [facility] 05-26-2024 Telephone encounter Note Prescription [...] Shay LPN May 26, 2024 12:10 PM [facility] 05-26-2024 Miscellaneous Notes Prescription Refill [...] 2024 12:10 PM documented in this encounter [facility] 05-22-2024 Note Patient Outreach (FA MDNA) GONZALO DELUCA ([id number]) 1955 F Date Time Provider Department 05/22/24 HERMINIA CASE During your visit today, we recorded the following information about you: Allergies As of Date: 05/22/2024 Noted Allergy Reaction SEASONAL ALLERGIES 08/16/2017 5 - Intolerance Date Reviewed: 12/30/2023 Reviewed by: Joaquina Martinez APRN.CARD PLACER - Fully Assessed Visit Diagnosis:Encounter for screening mammogram for breast cancer [Z12.31] Order(s):PAOLO SCREENING W CARON [[id number]] Order #: [id number] FUTURE Prescriptions as of 06/22/2024 - mirtazapine [...] Encounter Status:Closed by HUNTER, PRODUSER on 06/22/24 [facility] 05-09-2024 Telephone encounter Note Pt has refills on current prescription that should be available until end may. Melva Powell PA-C [facility] 05-09-2024 Miscellaneous Notes Pt has [...] 2024 9:26 AM documented in this encounter [facility] 05-09-2024 Telephone encounter Note Prescription [...] Weathers MA May 09, 2024 9:26 AM [facility] 05-02-2024 Note HNO ID: [id number] Author: ?, ?, ? Service: ? Author Type: ? Type: Progress Notes Filed: 05/02/2024 18:24 Note Text: Pt got scheduled [facility] 05-02-2024 Note HNO ID: [id number] Author: ?, ?, ? Service: ? Author Type: ? Type: Progress Notes Filed: 05/02/2024 12:10 Note Text: Mc sent [facility] 05-02-2024 History of Presen t illness Narrative Mc sent VIRTUAL VISIT PROGRESS NOTE This is a virtual visit using [employer] Video Visit. It required patient-provider interaction for the medical decision making as documented below. I have communicated my name and active licensure. The patient's identity and physical location were verified at the time of this visit. Either the patient or their legal sales representative printing supplies has been informed of the risks and [...] fall a few days ago, went to [facility] Doesn't recall how it happened, fell [...] Herminia Case MD documented in this encounter [facility] 05-02-2024 Note HNO ID: [id number] Author: HERMINIA CASE MD Service: ? Author Type: Physician Type: Progress Notes Filed: 05/02/2024 11:35 Note Text: VIRTUAL VISIT PROGRESS NOTE This is a virtual visit using [employer] Video Visit. It required patient-provider interaction for the medical decision making as documented below. I have communicated my name and active licensure. The patient's identity and physical location were verified at the time of this visit. Either the patient or their legal sales representative printing supplies has been informed of the risks and [...] fall a few days ago, went to [facility] Doesn't recall how it happened, fell [...] OF SYSTEMS: GENERAL: (more content not included)... [facility] 05-01-2024 Telephone encounter Note Mc sent [facility] 05-01-2024 Miscellaneous Notes Mc sent [...] 2024 6:08 PM documented in this encounter [facility] 05-01-2024 Telephone encounter Note Needs appointment. [facility] 04-30-2024 Telephone encounter Note Prescription [...] Shay LPN April 30, 2024 6:08 PM [facility] 04-27-2024 Emergency department Note Patient: [...] for clarification.) Flako Altamirano MD Acute Care [facility] CHIEF COMPLAINT Chief Complaint Patient presents [...] Acute exacerbation of chronic obstructive pulmonary disease ([facility]) 04/12/2018 Allergic rhinitis Arthritis Asthma Bronchitis Cancer ([facility]/HCC) ([facility]) skin Cervical cancer ([facility]) Chest pain COPD (chronic obstructive pulmonary disease) ([facility]) USE OXYGEN 3 L AT NIGHT DDD (degenerative disc disease), cervical Defect, retina, with detachment right DJD (degenerative joint disease), lumbar Emphysema lung ([facility]) Former smoker Hematuria SCHEDULED FOR THE PROCEDURE /SURGERY ON 02/11/2017 Hypokalemia Lung nodules Near syncope 09/19/2023 Osteoporosis Palpitations Pneumonia Recurrent major depression ([facility]) Sciatica Thoracic compression fracture ([facility]) Vitamin D deficiency SURGICAL HISTORY Past Surgical [...] min Stress: No Stress Concern Present (09/19/2023) [place] [employer] - Occupational Stress Questionnaire Feeling of Stress : Only a little Social Connections: Socially Isolated (09/19/2023) Social Connection and Isolation Panel [NHANES] Frequency of Communication with Friends and Family: Three times a week Frequency of Social Gatherings with Friends and Family: Three times a week Attends Mandaen Services: Never Active Member of Clubs or [...] Homeless in the Last Year: No SCREENINGS [place] Coma Scale Best Eye Response: Spontaneous Best [...] mL (1,000 mL IntraVENous New Bag 04/27/24 5475) REVAL: MDM On reassessment I talked to [...] AM PATIENT REFERRED TO: Herminia Case MD [address] [place] [address] DISCHARGE MEDICATIONS: New Prescriptions No medications on [...] pain 2ndary fall documented in this encounter [facility] 04-27-2024 Emergency department Triage note Per ems, fall on carpeted floor. _ LOC but pt states she was dizzy and weak prior to fall. C/o L elbow and nose pain 2ndary fall [facility] 04-27-2024 Physician Emergency department Note Patient: [...] Bronchitis Cancer (CMS/HCC) (HCC) skin Cervical cancer ([facility]) Chest pain COPD (chronic obstructive pulmonary disease) ([facility]) USE OXYGEN 3 L AT NIGHT DDD (degenerative disc disease), cervical Defect, retina, with detachment right DJD (degenerative joint disease), lumbar Emphysema lung ([facility]) Former smoker Hematuria SCHEDULED FOR THE PROCEDURE /SURGERY ON 02/11/2017 Hypokalemia Lung nodules Near syncope 09/19/2023 Osteoporosis Palpitations Pneumonia Recurrent major depression ([facility]) Sciatica Thoracic compression fracture ([facility]) Vitamin D deficiency SURGICAL HISTORY Past Surgical [...] min Stress: No Stress Concern Present (09/19/2023) [place] [employer] - Occupational Stress Questionnaire Feeling of Stress : Only a little Social Connections: Socially Isolated (09/19/2023) Social Connection and Isolation Panel [NHANES] Frequency of Communication with Friends and Family: Three times a week Frequency of Social Gatherings with Friends and Family: Three times a week Attends Mandaen Services: Never Active Member of Clubs or [...] mL (1,000 mL IntraVENous New Bag 04/27/24 7587) REVAL: MDM On reassessment I talked to [...] AM PATIENT REFERRED TO: Herminia Case MD [address] [place] [id number] DISCHARGE MEDICATIONS: New Prescriptions No medications on [...] Medicine Provider Flako Altamirano MD 04/28/24 0112 [facility] 04-06-2024 Telephone encounter Note Prescription Refill [...] Weathers MA April 06, 2024 9:03 AM [facility] 04-06-2024 Miscellaneous Notes Prescription Refill [...] 2024 9:03 AM documented in this encounter [facility] 04-02-2024 Telephone encounter Note Pt has three refills available at the pharmacy. Melva Juárez PA-C [facility] 04-02-2024 Miscellaneous Notes Pt has [...] Alejandra Reno MA documented in this encounter [facility] 04-02-2024 Telephone encounter Note Pharmacy verified in [facility] Patient has been identified by name [...] applicable Please advise. Maria Alejandra Reno MA [facility] 04-02-2024 Miscellaneous Notes Pharmacy verified in [facility] Patient has been identified by name [...] Alejandra Reno MA documented in this encounter [facility] 04-02-2024 Telephone encounter Note Pharmacy verified in [facility] Patient has been identified by name [...] applicable Please advise. Maria Alejandra Reno MA [facility] 03-20-2024 Telephone encounter Note Prescription Refill [...] Baltazar MA March 20, 2024 12:08 PM [facility] 03-20-2024 Miscellaneous Notes Prescription Refill Information [...] 2024 12:08 PM documented in this encounter [facility] 03-12-2024 Telephone encounter Note Pharmacy verified in [facility]. Patient has been identified by name [...] Not applicable Please advise. Rocio Westfall MA [facility] 03-12-2024 Miscellaneous Notes Pharmacy verified in [place]. Patient has been identified by name and [...] Rocio Westfall MA documented in this encounter [facility] 03-09-2024 Telephone encounter Note Prescription [...] Patel MA March 09, 2024 4:57 PM [facility] 03-09-2024 Miscellaneous Notes Prescription Refill [...] 2024 4:57 PM documented in this encounter [facility] 03-05-2024 Telephone encounter Note Patient aware, will buy over the counter. Whit Shay LPN [facility] 03-05-2024 Miscellaneous Notes Patient aware, will buy over the counter. Whit Shay LPN LM for patient to call the office. Whit Shay LPN Let patient know she can try looking for this available over the counter. Looks like she uses the diclofenac gel. Per [facility], Diclofenac Sodium is on backorder unavailable. Please advise. Whit Shay LPN documented in this encounter [facility] 03-05-2024 Telephone encounter Note Pharmacy verified in [facility] Patient has been identified by name [...] 7.9 oz) Please advise. Silvia Trejo MA [facility] 03-05-2024 Miscellaneous Notes Pharmacy verified in [facility] Patient has been identified by name [...] Silvia Trejo MA documented in this encounter [facility] 03-02-2024 Telephone encounter Note LM for patient to call the office. Whit Shay LPN [facility] 03-01-2024 Telephone encounter Note Let patient know she can try looking for this available over the counter. Looks like she uses the diclofenac gel. [facility] 03-01-2024 Telephone encounter Note Per [facility], Diclofenac Sodium is on backorder unavailable. Please advise. Whit Shay LPN [facility] 02-07-2024 Telephone encounter Note Pharmacy verified in [facility] Patient has been identified by name [...] 7.9 oz) Please advise. Silvia Trejo MA [facility] 02-07-2024 Miscellaneous Notes Pharmacy verified [...] Silvia Trejo MA documented in this encounter [facility] 02-07-2024 Telephone encounter Note Prescription [...] Prasad MA February 07, 2024 11:36 AM [facility] 02-07-2024 Miscellaneous Notes Prescription Refill [...] 2024 11:36 AM documented in this encounter [facility] 01-11-2024 Telephone encounter Note This was refilled earlier today. Melva Juárez PA-C [facility] 01-11-2024 Miscellaneous Notes This was [...] 2024 2:10 PM documented in this encounter [facility] 01-11-2024 Telephone encounter Note Prescription [...] Baltazar MA January 11, 2024 2:10 PM [facility] 01-10-2024 Telephone encounter Note Pharmacy verified in [place]. Patient has been identified by name and [...] Please advise. Rocio Westfall MA [facility] 01-10-2024 Miscellaneous Notes Pharmacy verified in [place]. Patient has been identified by name and [...] Rocio Westfall MA documented in this encounter [facility] 01-09-2024 Telephone encounter Note Pharmacy verified in [place]. Patient has been identified by name and [...] Not applicable Please advise. Rocio Westfall MA [facility] 01-09-2024 Miscellaneous Notes Pharmacy verified in [place]. Patient has been identified by name and [...] Rocio Westfall MA documented in this encounter [facility] 01-09-2024 Telephone encounter Note Prescription [...] Shay LPN January 09, 2024 2:38 PM [facility] 01-09-2024 Miscellaneous Notes Prescription Refill [...] 2024 2:38 PM documented in this encounter [facility] 01-09-2024 Telephone encounter Note Please review and advise. [facility] 01-09-2024 Miscellaneous Notes Please review and advise. documented in this encounter [facility] 01-09-2024 Telephone encounter Note Prescription [...] Shay LPN January 09, 2024 10:42 AM [facility] 01-09-2024 Miscellaneous Notes Prescription Refill [...] 2024 10:42 AM documented in this encounter [facility] 12-30-2023 Note HNO ID: [id number] Author: JOAQUINA MARTINEZ APRN.CARD PLACER Service: ? Author Type: Nurse Practitioner Type: Progress Notes Filed: 12/30/2023 13:47 Note Text: VIRTUAL VISIT PROGRESS NOTE This is a virtual visit using [employer] Video Visit. It required patient-provider interaction for the medical decision making as documented below. I have communicated my name and active licensure. The patient's identity and physical location were verified at the time of this visit. Either the patient or their legal sales representative printing supplies has been informed of the risks and [...] on file for this visit. Joaquina Rao APRN.[facility] 12-30-2023 History of Presen t illness Narrative VIRTUAL VISIT PROGRESS NOTE This is a virtual visit using [employer] Video Visit. It required patient-provider interaction for the medical decision making as documented below. I have communicated my name and active licensure. The patient's identity and physical location were verified at the time of this visit. Either the patient or their legal sales representative printing supplies has been informed of the risks and [...] on file for this visit. Joaquina Rao APRN.CARD PLACER documented in this encounter [facility] 12-27-2023 Telephone encounter Note Request completed and faxed. [facility] 12-27-2023 Miscellaneous Notes Request completed and faxed. Type of letter/form/fax request - Home Health Care Orders Form received from [facility] on 12/26/23 floor and placed on MD desk () for completion. Completed form needs to be faxed to [phone]. Route to [place] when form completed for processing documented in this encounter [facility] 12-27-2023 Telephone encounter Note Type of letter/form/fax request - Home Health Care Orders Form received from [facility] on 12/26/23 floor and placed on MD desk () for completion. Completed form needs to be faxed to [phone]. Route to [place] when form completed for processing [facility] 12-27-2023 Telephone encounter Note Prescription [...] Contreras LPN December 27, 2023 10:41 AM [facility] 12-27-2023 Miscellaneous Notes Prescription Refill [...] 2023 10:41 AM documented in this encounter [facility] 12-14-2023 Telephone encounter Note Prescription [...] Shay LPN December 14, 2023 9:21 AM [facility] 12-14-2023 Miscellaneous Notes Prescription Refill [...] 2023 9:21 AM documented in this encounter [facility] 12-14-2023 Telephone encounter Note Request completed and faxed. [facility] 12-14-2023 Miscellaneous Notes Request completed and faxed. Done. Type of letter/form/fax request - Home Health Care Orders Form received from [facility] on 12/12/23 floor and placed on MD desk () for completion. Completed form needs to be faxed to [phone]. Route to [place] when form completed for processing documented in this encounter [facility] 12-13-2023 Telephone encounter Note Done. [facility] 12-13-2023 Telephone encounter Note Type of letter/form/fax request - Home Health Care Orders Form received from [facility] on 12/12/23 floor and placed on desk () for completion. Completed form needs to be faxed to [phone]. Route to [place] when form completed for processing [facility] 12-08-2023 Telephone encounter Note Home care Certification Form 485 received from [facility]. For cert dates 11/25/23 to 01/23/24 that were signed on 12/06/23. Recertification Patient's home health 485 form / care plan for stated certification period reviewed and signed. Relevant medical records were reviewed. No changes were indicated [facility] 12-08-2023 Miscellaneous Notes Home care Certification Form 485 received from [facility]. For cert dates 11/25/23 to 01/23/24 that were signed on 12/06/23. Recertification Patient's home health 485 form / care plan for stated certification period reviewed and signed. Relevant medical records were reviewed. No changes were indicated documented in this encounter [facility] 12-06-2023 Telephone encounter Note Request completed and faxed. [facility] 12-06-2023 Miscellaneous Notes Request completed and faxed. Done. Type of letter/form/fax request - Home Health Care Orders Plan of Care Certification Period-11/25/23 to 01/23/24 Form received from [facility] on 12/01/23 floor and placed on desk () for completion. Completed form needs to be faxed to [phone]. Route to [place] when form completed for processing documented in this encounter [facility] 12-06-2023 Telephone encounter Note Done. T [facility] 12-06-2023 Telephone encounter Note Type of letter/form/fax request - Home Health Care Orders Plan of Care Certification Period-11/25/23 to 01/23/24 Form received from [facility] on 12/01/23 floor and placed on MD desk () for completion. Completed form needs to be faxed to [phone]. Route to [place] when form completed for processing [facility] 11-28-2023 Telephone encounter Note Pharmacy verified in [facility] Patient has been identified by name [...] oz) Please advise. Silvia Trejo MA T [facility] 11-28-2023 Miscellaneous Notes Pharmacy verified in [facility] Patient has been identified by name [...] Silvia Trejo MA documented in this encounter [facility] 11-14-2023 Telephone encounter Note Pharmacy verified in [place]. Patient has been identified by name and [...] Not applicable Please advise. Rocio Westfall MA [facility] 11-14-2023 Miscellaneous Notes Pharmacy verified in [place]. Patient has been identified by name and [...] Rocio Westfall MA documented in this encounter [facility] 11-14-2023 Telephone encounter Note Request completed and faxed. [facility] 11-14-2023 Miscellaneous Notes Request completed and faxed. Done. Type of letter/form/fax request - Home Health Care Orders Form received from [facility] on 11/13/23 floor and placed on MD desk () for completion. Completed form needs to be faxed to . Route to [place] when form completed for processing documented in this encounter [facility] 11-14-2023 Telephone encounter Note Done. [facility] 11-14-2023 Telephone encounter Note Type of letter/form/fax request - Home Health Care Orders Form received from [facility] on 11/13/23 floor and placed on MD desk () for completion. Completed form needs to be faxed to . Route to [place] when form completed for processing [facility] 11-12-2023 Telephone encounter Note Prescription [...] Shay LPN November 12, 2023 10:33 AM [facility] 11-12-2023 Miscellaneous Notes Prescription Refill [...] 2023 10:33 AM documented in this encounter [facility] 11-02-2023 Telephone encounter Note Prescription [...] Prasad MA November 02, 2023 8:23 AM [facility] 11-02-2023 Miscellaneous Notes Prescription Refill [...] 2023 8:23 AM documented in this encounter [facility] 10-28-2023 Telephone encounter Note Request completed and faxed. [facility] 10-28-2023 Miscellaneous Notes Request completed and faxed. Done. Type of letter/form/fax request - Home Health Care Orders Form received from [facility] on 10/27/23 floor and placed on MD desk () for completion. Completed form needs to be faxed to [phone]. Route to [place] when form completed for processing documented in this encounter [facility] 10-28-2023 Telephone encounter Note Done. [facility] 10-28-2023 Telephone encounter Note Type of letter/form/fax request - Home Health Care Orders Form received from [facility] on 10/27/23 floor and placed on MD desk () for completion. Completed form needs to be faxed to [phone]. Route to [place] when form completed for processing [facility] 10-24-2023 Telephone encounter Note Noted. Melva Juárez PA-C [facility] 10-24-2023 Miscellaneous Notes Noted. Melva Juárez PA-C Summary: Patient Update [facility] PT called to report that patient cancelled her PT appointment today. documented in this encounter [facility] 10-22-2023 Telephone encounter Note Summary: Patient Update [facility] PT called to report that patient cancelled her PT appointment today. [facility] 10-18-2023 Telephone encounter Note Request completed and faxed. [facility] 10-18-2023 Miscellaneous Notes Request completed and faxed. Type of letter/form/fax request - Home Health Care Orders Form received from [facility] on 10/18/23 floor and placed on MD desk () for completion. Completed form needs to be faxed to [phone]. Route to [place] when form completed for processing documented in this encounter [facility] 10-18-2023 Telephone encounter Note Type of letter/form/fax request - Home Health Care Orders Form received from [facility] on 10/18/23 floor and placed on MD desk () for completion. Completed form needs to be faxed to [phone]. Route to [place] when form completed for processing [facility] 10-16-2023 Hospital Discharg e instructions Janneth Hartley PA-C - 10/16/2023 9:52 PM EDT Continue take your home medications as prescribed, and use lidocaine patches. Do the incentive spirometer for 10 breaths every 2 hours while awake. Return to ER if experiencing any worsening symptoms The following attachments cannot be sent through Care Everywhere.Preventing Falls ED (Bur[place]ian)Acute Pain, Adult (Bur[place]ian)documented in this encounter [facility] 10-16-2023 Emergency department Note Emergency Department Encounter [facility] Patient: Gonzalo Deluca : 1955 [...] major depression (HCC) Sciatica Thoracic compression fracture ([facility]) Vitamin D deficiency Past Surgical History: Procedure [...] min Stress: No Stress Concern Present (09/19/2023) [place] [employer] - Occupational Stress Questionnaire Feeling of Stress : Only a little Social Connections: Socially Isolated (09/19/2023) Social Connection and Isolation Panel [NHANES] Frequency of Communication with Friends and Family: Three times a week Frequency of Social Gatherings with Friends and Family: Three times a week Attends Mandaen Services: Never Active Member of Clubs or [...] Department Physician in the absence of a director surface transportation. Please see Epiphany for interpretation of EKG. [...] PATIENT REFERRED TO: Herminia Case MD [address] [facility] [address] Call [facility] [address] [facility] [phone] Go to If symptoms worsen DISCHARGE MEDICATIONS: New Prescriptions LIDOCAINE (LIDODERM) 5 % PATCH Apply 1 patch topically daily. Remove & discard patch within 12 hours or as directed by . METHOCARBAMOL (ROBAXIN) 500 MG TABLET Take 2 tablets (1,000 mg) by mouth every 8 hours as needed for muscle spasms for up to 10 days. Janneth Hartley PA-C [facility] Janneth Hartley PA-C 10/16/232151 documented in this encounter [facility] 10-16-2023 Physician Emergency department Note Emergency Department Encounter [facility] Patient: Gonzalo Deluca : 1955 [...] an 8/10. History of Present Illness: Gonzalo eDluca is a 67 y.o. female who presented [...] major depression (HCC) Sciatica Thoracic compression fracture ([facility]) Vitamin D deficiency Past Surgical History: Procedure Laterality Date CYSTOSCOPY 01/12/2017 OFFICE PROCEDURE CYSTOSCOPY 02/11/2017 C&P bladder biopsy EYE SURGERY detached retina 1994 HYSTERECTOMY 11/06/2019 ABDOMINAL RADICAL HYSTERECTOMY WITH BSO AND PELVIC LYMPH; DR. ZIYAD MENENDEZ [facility] OTHER SURGICAL HISTORY Left 12/19/2019 Med [...] min Stress: No Stress Concern Present (09/19/2023) [place] [employer] - Occupational Stress Questionnaire Feeling of Stress : Only a little Social Connections: Socially Isolated (09/19/2023) Social Connection and Isolation Panel [NHANES] Frequency of Communication with Friends and Family: Three times a week Frequency of Social Gatherings with Friends and Family: Three times a week Attends Mandaen Services: Never Active Member of Clubs or [...] Department Physician in the absence of a director surface transportation. Please see Epiphany for interpretation of EKG. [...] PM PATIENT REFERRED TO: Herminia Case MD [address] [place] [address] Call [facility] [address] [place] [phone] Go to If symptoms worsen DISCHARGE [...] [facility] Janneth Hartley PA-C 10/16/232151 [facility] 10-11-2023 Telephone encounter Note Home care Certification Form 485 received from [facility]. For cert dates 09/26/23 to 11/24/23 that were signed on 10/11/23. New Certification Patient's home health 485 form / care plan for stated certification period reviewed and signed. Relevant medical records were reviewed. No changes were indicated [facility] 10-11-2023 Miscellaneous Notes Home care Certification Form 485 received from [facility]. For cert dates 09/26/23 to 11/24/23 that were signed on 10/11/23. New Certification Patient's home health 485 form / care plan for stated certification period reviewed and signed. Relevant medical records were reviewed. No changes were indicated documented in this encounter [facility] 10-11-2023 Telephone encounter Note Request completed and faxed. [facility] 10-11-2023 Miscellaneous Notes Request completed and faxed. Done. Type of letter/form/fax request - Home Health Care Orders Form received from [facility] on 10/06/23 floor and placed on MD desk () for completion. Completed form needs to be faxed to [phone]. Route to [place] when form completed for processing documented in this encounter [facility] 10-11-2023 Telephone encounter Note Done. [facility] 10-10-2023 Telephone encounter Note Type of letter/form/fax request - Home Health Care Orders Form received from [facility] on 10/06/23 floor and placed on MD desk () for completion. Completed form needs to be faxed to [phone]. Route to [place] when form completed for processing [facility] 10-06-2023 Note HNO ID: [id number] Author: LALA MOLINA LPN Service: ? Author Type: LICENSED NURSE Type: Progress Notes Filed: 10/06/2023 12:12 Note Text: This encounter was opened in error. [facility] 10-06-2023 History of Presen t illness Narrative This encounter was opened in error. documented in this encounter [facility] 10-06-2023 Telephone encounter Note [facility] is calling Herminia Case MD today to report patient's home health care physical therapy will be delayed a week as patient informed them that she is not feeling well.. Patient has been identified by name and birthdate. Duration of symptoms: N/A Person calling: caregiver: [facility] Call patient at: at home [phone] (home) [phone] (cell) Was an appointment scheduled: No Closing statement: Jessica Jay [facility] Work Phone: 10-06-2023 Miscellaneous Notes [facility] is calling Herminia Case MD today to report patient's home health care physical therapy will be delayed a week as patient informed them that she is not feeling well.. Patient has been identified by name and birthdate. Duration of symptoms: N/A Person calling: caregiver: [facility] Call patient at: at home [phone] (home) [phone] (cell) Was an appointment scheduled: No Closing statement: Jessica Jay documented in this encounter [facility] 09-22-2023 Miscellaneous Notes Patient Choice Patient Name: GONZALO DELUCA Date of : 1955 All Providers Sent Referral Name: [facility] Phone: [phone] Address: [address] [place] [address] The patient is Moderately Unstable - Medium risk of patient condition declining or worsening The patient's goals for the shift include rest The clinical goals for the shift include safety Received message from Reny Telles APRN. Daughter Karishma requesting information on resources available to receive additional help in the home. Placed call to [phone]. Left voice mail and return call back [...] PT recommends return home with home care. social service liaison following. Currently on 3 liters oxygen; [...] and agreeable to SN, PT services with [facility]. Care Types: [...] is noted as yes - consider a OFFICE MOVER evaluation once the patient returns home. START PATIENT REGISTRATION INFORMATION Order Information Order Signing Physician: Nickolas Marrero MD Service Ordered RN ?: Yes Service Ordered PT ?: Yes Service Ordered OT ?: No Service Ordered ST ?: No Service Ordered OFFICE MOVER?:No Service Ordered TENNIS CENTRE MANAGER?: No Following Physician: HERMINIA CASE MD Following Physician Overseeing Physician: HERMINIA CASE MD (Required for Residents only) Agreeable to Follow? Yes Date/Time of Call 09/21/23 2:04 PM, Spoke with: yes per call back received from office . Care Coordination Same Day SOC?: No Primary Care Physician: HERMINIA CASE MD Primary Care Physician Primary Care Physician Address: [address] [place] [address] Visit Instructions: N/A Service Discharge Location Type: Home with Home Health Care Service Facility Name: N/A Service Floor Facility: N/A Service Room No: N/A Demographics Patient Last Name: Yosi Patient First Name: Gonzalo Language/Communication Barrier: DAUGHTER KARISHMA IS CONTACT Service Address: [facility] Ramesh Bañuelos [facility] [place] Service ZIP: [address] Service Other phone numbers: Telephone Information: Emergency Contact: Extended Emergency Contact Information Primary Emergency Contact: Karishma Deluca Address: [facility] [place] [address] [facility] Relation: Daughter Secondary Emergency Contact: Jace Deluca [facility] Relation: Son Admission Information Admit Date: 09/19/2023 Patient status at discharge: Inpatient Admitting Diagnosis: Near syncope [R55] Closed head injury, initial encounter [S09.90XA] Fall, initial encounter [W19.XXXA] Compression fracture of T7 vertebra, initial encounter (HCC) [S22.060A] Compression fracture of T8 vertebra, initial encounter ([facility]) [S22.060A] Compression fracture of T5 vertebra, initial encounter ([facility]) [S22.050A] Compression fracture of L1 vertebra, initial encounter ([facility]) [S32.010A] Caregiver Information Caregiver First Name: NA Caregiver Last Name: NA Caregiver Relationship to Patient NA Caregiver Phone Number: NA Caregiver Notes: N/A [email or web address] List No END PATIENT REGISTRATION INFORMATION Pt [...] diagnoses: Discharge Date: TBD Referral Source-PACC: (Hospital/Unit): [facility] / B2-261/B2-261 A End PACC Note The [...] Limits Permission given to speak with patient sales representative printing supplies/caregiver as indicated: Yes Confirmation of Payer with patient/family: Yes Payer Name: [facility] Dual Complete [place]: No Confirmation of Primary Care Physician: Confirmed [...] Daily Living Prescription Coverage: Yes Pharmacy Used: [facility] in [place] Medication Management: Independent Transportation/Shopping: Transportation Mode: Car [...] to be discharged to: Home with possible [facility] Discharge Planning Actions: Continue to follow [...] home with possible HHC at this time. wireless sales manager to follow and assist as needed. [...] barriers include . documented in this encounter [facility] 09-22-2023 Note Formatting of this n ote might be different from the original. Patient Choice Patient Name: GONZALO DELUCA Date of : 1955 All Providers Sent Referral Name: [facility] Phone: [phone] Address: [address] [place] [id number] [facility] 09-22-2023 Note Formatting of this n ote might be different from the original. Patient Choice Patient Name: GONZALO DELUCA Date of : 1955 All Providers Sent Referral Name: [facility] Phone: [phone] Address: [address] [place] [address] [facility] 09-22-2023 History of Presen t illness Narrative [...] Primary Emergency Contact: Karishma Deluca Address: [address] [place] [address] [place] [address] [facility] Relation: Daughter Secondary Emergency Contact: AmybenjiJace [facility] Relation: Son Nickolas Marrero MD Division of Hospitalist Medicine [facility] Images from the original note were not included. PHYSICAL THERAPY [facility] Initial Evaluation Name/MRN: Gonzalo Deluca ([id number]) Evaluation Date: 09/21/2023 Date of : 1955 [...] Acute exacerbation of chronic obstructive pulmonary disease ([facility]) 04/12/2018 Allergic rhinitis Arthritis Asthma Bronchitis Cancer ([facility]) ([facility]) skin Cervical cancer ([facility]) ([facility]) Chest pain COPD (chronic obstructive pulmonary disease) ([facility]) USE OXYGEN 3 L AT NIGHT DDD (degenerative disc disease), cervical Defect, retina, with detachment right DJD (degenerative joint disease), lumbar Emphysema lung ([facility]) Former smoker Hematuria SCHEDULED FOR THE PROCEDURE /SURGERY ON 02/11/2017 Hypokalemia Lung nodules Near syncope 09/19/2023 Osteoporosis Palpitations Pneumonia Recurrent major depression ([facility]) Sciatica Thoracic compression fracture ([facility]) Vitamin D deficiency Past Surgical History: Past [...] Problem List Diagnosis Date Noted Severe malnutrition ([facility]) ([facility]) 09/20/2023 Falls frequently 09/20/2023 Unintentional weight loss 09/20/2023 Debility 09/20/2023 PFO (patent foramen ovale) 09/20/2023 Lumbar compression fracture, closed, initial encounter ([facility]) 02/13/2023 Nondisplaced fracture of neck of left femur ([facility]) 11/06/2022 Other specified complication of vascular prosthetic devices, implants and grafts, initial encounter ([facility]) 08/06/2021 Poor venous access 12/19/2019 H/O: CVA (cerebrovascular accident) 12/14/2019 Malignant neoplasm of exocervix ([facility]) 11/07/2019 S/P hysterectomy 11/07/2019 PNA (pneumonia) 08/02/2019 [...] Responsibilities: Independent Receives Help From: Family Active Supervisor Metal Cans: N/A Prior Level of Function ADL Assistance: [...] Mobility Raw Score (No Stairs) : 14 [facility] Plan Pt would benefit from skilled [...] of Care supervision is transferred to a [facility] Therapy Services Physical Therapist. Goals and/or treatment plan was established in collaboration with patient/family/other representatives. Images from the original note were not included. OCCUPATIONAL THERAPY [facility] Initial Evaluation Name/MRN: Gonzalo Deluca ([id number]) Evaluation Date: 09/21/2023 Date of : 1955 [...] Acute exacerbation of chronic obstructive pulmonary disease ([facility]) 04/12/2018 Allergic rhinitis Arthritis Asthma Bronchitis Cancer ([facility]) ([facility]) skin Cervical cancer ([facility]) ([facility]) Chest pain COPD (chronic obstructive pulmonary disease) ([facility]) USE OXYGEN 3 L AT NIGHT DDD (degenerative disc disease), cervical Defect, retina, with detachment right DJD (degenerative joint disease), lumbar Emphysema lung ([facility]) Former smoker Hematuria SCHEDULED FOR THE PROCEDURE /SURGERY ON 02/11/2017 Hypokalemia Lung nodules Near syncope 09/19/2023 Osteoporosis Palpitations Pneumonia Recurrent major depression ([facility]) Sciatica Thoracic compression fracture ([facility]) Vitamin D deficiency Past Surgical History: Past [...] Problem List Diagnosis Date Noted Severe malnutrition ([facility]) ([facility]) 09/20/2023 Falls frequently 09/20/2023 Unintentional weight loss 09/20/2023 Debility 09/20/2023 PFO (patent foramen ovale) 09/20/2023 Lumbar compression fracture, closed, initial encounter ([facility]) 02/13/2023 Nondisplaced fracture of neck of left femur ([facility]) 11/06/2022 Other specified complication of vascular prosthetic devices, implants and grafts, initial encounter ([facility]) 08/06/2021 Poor venous access 12/19/2019 H/O: CVA (cerebrovascular accident) 12/14/2019 Malignant neoplasm of exocervix ([facility]) 11/07/2019 S/P hysterectomy 11/07/2019 PNA (pneumonia) 08/02/2019 Leukocytosis 04/13/2018 Shortness of breath 04/13/2018 DDD (degenerative disc disease), cervical 04/12/2018 Recurrent major depression ([facility]) 04/12/2018 Chronic back pain 04/10/2017 COPD (chronic obstructive pulmonary disease) ([facility]) 04/10/2017 Pulmonary nodule 04/10/2017 Sciatica 04/10/2017 Supplemental [...] Responsibilities: Independent Receives Help From: Family Active Supervisor Metal Cans: N/A Prior Level of Function ADL Assistance: [...] of Care supervision is transferred to a [facility] Therapy Services Occupational Therapist. Goals and/or treatment plan was established in collaboration with patient/family/other representatives. [facility] Geriatric Medicine Inpatient Consult Service Admission Date: 09/19/2023 Assessment Principal Problem: Falls frequently Active Problems: Severe malnutrition (CMS/HCC) (HCC) Unintentional weight loss Debility Chronic back pain COPD (chronic obstructive pulmonary disease) ([facility]) Supplemental oxygen dependent Plan Polypharmacy (History per [...] impairment --Recommend outpatient follow up at [facility] for more in depth [...] depression, Vit D deficiency, Osteoporosis presented to [facility] on 09/19/23 for fall. Found to have [...] Intake/Output Summary (Last 24 hours) at 09/21/2023 0956 Last data filed at 09/21/2023 0218 Gross [...] mg, Oral, TID, Saad Telles APRN - CARD PLACER, 650 mg at 09/21/23821 buPROPion XL (Wellbutrin XL) 24 hr tablet 150 mg, 150 mg, Oral, Daily, Lauren Serna MD, 150 mg at 09/21/23821 busPIRone (Buspar) tablet 15 mg, 15 mg, Oral, TID, Saad Telles APRN - CARD PLACER, 15 mg at 09/21/23821 calcitonin (Miacalcin) injection [...] mg, Oral, Daily, Saad Telles APRN - CARD PLACER, 30 mg at 09/21/23 0822 perflutren protein [...] 1.017 09/21/2023 Lab Results Component Value Date [id number] 09/21/2023 Lab Results Component Value Date [...] (gastrocnemius) Fluid Accumulation: No significant fluid accumulation Ict Help Desk Technician Strength: Not Performed Nutrition Assessment: 67 y.o. [...] (kg): 52 kg Total Energy Requirements (kcals/day): 5088-9098 (28-35) Weight Used for Protein Requirements: Current [...] RD records) % Weight Change (Calculated): -8 [place] Body Weight (lbs) (Calculated): 125 lbs [place] Body Weight (Kg) (Calculated): 57 kg % [place] Body Weight (Calculated): 92 % BMI (kg/m2) [...] Oral Nutrition Supplement Mara Corona RD Contact: *[phone] or via Secure Chat Hospitalist Progress Note [...] Chest pain COPD (chronic obstructive pulmonary disease) ([facility]) USE OXYGEN 3 L AT NIGHT DDD (degenerative disc disease), cervical Defect, retina, with detachment right DJD (degenerative joint disease), lumbar Emphysema lung ([facility]) Former smoker Hematuria SCHEDULED FOR THE PROCEDURE /SURGERY ON 02/11/2017 Hypokalemia Lung nodules Near syncope 09/19/2023 Osteoporosis Palpitations Pneumonia Recurrent major depression ([facility]) Sciatica Thoracic compression fracture ([facility]) Vitamin D deficiency LABS: CBC: Recent Labs [...] Primary Emergency Contact: Karishma Deluca Address: [address] [place] [address] [place] [address] [facility] Relation: Daughter Secondary Emergency Contact: Jace Deluca [place] Relation: Son Nickolas Marrero MD Division of Hospitalist Medicine [facility] Images from the original note were not included. PHYSICAL THERAPY [facility] Name/MRN: Gonzalo Ferris Yosi ([id number]) Date: 09/20/2023 PT orders received and chart reviewed. Pt with multiple, severe compresssion fractures of the T and L spine. Ortho consulted. Will await Ortho POC prior to initiating therapy [facility] Images from the original note were not included. OCCUPATIONAL THERAPY [facility] Name/MRN: Gonzalo Starkssumeetbenji ([id number]) Date: 09/20/2023 OT orders received and chart reviewed. Pt with multiple, severe compresssion fractures of the T and L spine. Ortho consulted. Will await Ortho POC prior to initiating therapy. Roopa More OT documented in this encounter [facility] 09-22-2023 Plan of care note The patient is Moderately Unstable - Medium risk of patient condition declining or worsening The patient's goals for the shift include rest The clinical goals for the shift include safety [facility] 09-21-2023 Telephone encounter Note Called and spoke with Vivian from [place] They just need to confirm Dr. Case will follow for For homecare They Don't need orders. Verbal given now. [facility] Work Phone: 09-21-2023 Miscellaneous Notes Called and spoke with Vivian from [place] They just need to confirm Dr. Case will follow for For homecare They Don't need orders. Verbal given now. Orders or will Dr. Case follow? She will follow. We don't typically give home care orders. Melva Juárez PA-C Ashley from [facility] Patient currently admitted for falls Need orders to follow for Home Care Call back number: [phone] documented in this encounter [facility] 09-21-2023 Hospital Discharg e instructions Freddy Black MD - 09/21/2023 4:28 PM EDT Images from the original note were not included. You have been evaluated in the hospital for a behavioral health problem. I recommend you contact the following mental health provider(s) to schedule an appointment as soon as possible: [x] [facility]; [facility] (Psychiatry, Counseling,Addiction Services); [address] [facility] [facility] [address], [place] [address]; [x] [facility]; (Psychiatry, Counseling, Addiction Services); [address], [facility] [address]; [x] [facility]; (Psychiatry, Counseling); [address] [place] [address]; [] [facility]; (Psychiatry, Counseling); [address], [address], [place] [address]; [] [facility] [facility]; (Psychiatry, Counseling); [address], [place] [address]; [] [facility]; (Psychiatry, Counseling); [address], [address], [place] [address]; [] [facility]; (Psychiatry, Counseling); [address], [address], [place] [address]; [x] [facility] (Psychiatry, Counseling, Case Management); [address], [place] [address]; ; for initial assessments you may call or walk-in on Mondays and Tuesdays at 8:00 AM [] [facility] (Psychiatry, Counseling, Case Management); [address] [facility] [place] [address]; ; for initial assessments you may call or walk-in on at noon [] [facility] (Psychiatry, Counseling, Case Management); [address] [place] [address]; [x] [facility] (Psychiatry, Counseling, Case Management, Addiction Services); [address] [place] [address]; [x] [facility] (Psychiatry, Counseling, Case Management, Addiction Services); [address], [facility] [address], [place] [address]; [x] [facility] (Psychiatry, Counseling, Case Management, Addiction Services); [address], [address], [place] [address]; [] [facility] (Psychiatry, Counseling); [address] [place] [address]; [] [facility] (Psychiatry, Counseling, Case Management - has evening and weekend hours); [address] [place] [address]; If you or someone you know is struggling or in crisis, help is available. Call or text 988 or chat [email or web address]. -OR- Call the [facility] Crisis Hotline at [phone] -OR- Visit [facility] Psychiatric Emergency Services, in person, at [address] [place] [address]; You should return to the Emergency Department [...] Primary Emergency Contact: Karishma Deluca Address: [address] [place] [address] [place] [address] [facility] Relation: Daughter Secondary Emergency [...] prosthetic devices, implants and grafts, initial encounter ([facility]) Nondisplaced fracture of neck of left femur ([facility]) Lumbar compression fracture, closed, initial encounter ([facility]) Severe malnutrition (CMS/HCC) ([facility]) Unintentional weight loss Debility PFO (patent foramen ovale) Poor venous access Chronic back pain COPD (chronic obstructive pulmonary disease) ([facility]) Overview Signed 01/01/2022 6:48 AM by Interface, Incoming Problems- [facility] Conversion On home 3-4L NC DDD (degenerative disc disease), cervical Leukocytosis Malignant neoplasm of exocervix (HCC) Recurrent major depression ([facility]) Pulmonary nodule Overview Signed 01/01/2022 6:48 AM [...] (115 lb) Mental Status: {SHAMA Patient Mental Status:00747} IV Access: {SHAMA IV Access:25433} Nursing Mobility/ADLs: Walking {YANETH ADL:::Independent} Transfer {YANETH ADL:::Independent} Bathing {YANETH ADL:::Independent} Dressing {YANETH ADL:::Independent} Toileting {YANETH ADL:::Independent} Feeding {YANETH ADL:::Independent} Correctional Supply Supervisor {YANETH ADL:::Independent} Med Delivery {yes/no:16688} Wound Care Documentation and Therapy: Wound/Incision 05/21/22 Traumatic Eye Right (Active) Number of days: 487 Wound/Incision 05/21/22 Traumatic Wrist Left;Posterior (Active) Number of days: 487 Wound/Incision 11/07/22 Incision Leg Anterior;Left;Proximal;Upper (Active) Number of days: 318 Elimination: Continence: Bowel: {yes/no:45527} Bladder: {yes/no:93310} Urinary Catheter: {SHAMA Urinary Catheter:24069} Colostomy/Ileostomy/Ileal Conduit: {YES / NO:} Date of Last BM: Intake/Output Summary (Last 24 hours) at 09/21/2023 1408 Last data filed at 09/21/2023 0218 Gross per 24 hour Intake -- Output 800 ml Net -800 ml I/O last 3 completed shifts: In: 752.1 (14.4 mL/kg) [I.V.:52.1 (1 mL/kg); IV Piggyback:700] Out: 800 (15.3 mL/kg) [Urine:800 (0.4 mL/kg/hr)] Weight: 52.2 kg Safety Concerns: {SHAMA Safety Concerns:54842} Impairments/Disabilities: {SHAMA Impairments/Disabilities:67871} Nutrition Therapy: Current Nutrition Therapy: {SHAMA Diet List:35674} Routes of Feeding: {routes of feedin} Liquids: {liquid consistency:31065} Daily Fluid Restriction: {daily fluid restriction:19489} Last Modified Barium Swallow with Video (Video Swallowing Test): {done not done:01766} Treatments at the Time of Hospital Discharge: Respiratory Treatments: Oxygen Therapy: {Therapy; copd oxygen:96431} Ventilator: {SHAMA Ventilator:86400} Rehab Therapies: {GEN THERAPY DISCIPLINE [facility]:8564096} Weight Bearing Status/Restrictions: {POD WEIGHT BEARIN} Other Medical Equipment (for information only, NOT a DME order): {Assistive Devices DME:91027} Other Treatments: Patient's personal belongings (please select all that are sent with patient): {SHAMA Patient Belongings:71561} RN SIGNATURE: {E-signature:97782} CASE MANAGEMENT/SOCIAL WORK SECTION Inpatient Status Date: Discharging to Facility/ Agency Name: [facility] Address: [address] [place] [address] \ Dialysis Facility (if applicable) Name: Address: Dialysis Schedule: Phone: Fax: Clinical Quality Assurance Associate/Student Assistance Counselor signature: {E-signature:33995} PHYSICIAN SECTION Name: Gonzalo Deluca Prognosis: {Rehab Prognosis:84104} Condition at Discharge: {Patient Condition:33003} Rehab Potential (if transferring to Rehab): {Rehab Prognosis:21476} Recommended Labs or Other Treatments After Discharge: The individual is being admitted to a nursing facility directly from an [facility] or a unit of a [facility] that is not operated by or licensed by [facility] under section 5119.14 or 5160-3-15.1 5 The individual requires the level of services provided by a nursing facility for the condition for which he or she was treated in the hospital and, Physician Certification: I certify the above information and transfer of Gonzalo Deluca is necessary for the continuing treatment of the diagnosis listed and that she requires {SHAMA Level of Care:73328} for {greater less than:42311} 30 days. Update Admission H&P: {SHAMA Changes in H&P:64866} PHYSICIAN SIGNATURE: {E-signature:86707} documented in this encounter [facility] 09-21-2023 Note Formatting of this n ote might be different from the original. Received message from Reny Telles APRN. Daughter Karishma requesting information on resources available to receive additional help in the home. Placed call to [phone]. Left voice mail and return call back number. TCC is not here tomorrow -plan to return on Tuesday09/23/23. Made referral to [facility] per Reny Telles APRN. [facility] 09-21-2023 Note Formatting of this n ote might be different from the original. Received message from Reny Telles APRN. Daughter Karishma requesting information on resources available to receive additional help in the home. Placed call to [phone]. Left voice mail and return call back number. [facility] is not here tomorrow -plan to return on Tuesday09/23/23. Made referral to [facility] per Reny Telles APRN. 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 Initial presentation significant for hypokalemia and MARIA. [...] Cancer (CMS/HCC) (HCC) skin Cervical cancer (CMS/HCC) ([facility]) Chest pain COPD (chronic obstructive pulmonary disease) ([facility]) USE OXYGEN 3 L AT NIGHT DDD (degenerative disc disease), cervical Defect, retina, with detachment right DJD (degenerative joint disease), lumbar Emphysema lung ([facility]) Former smoker Hematuria SCHEDULED FOR THE PROCEDURE /SURGERY ON 02/11/2017 Hypokalemia Lung nodules Near syncope 09/19/2023 Osteoporosis Palpitations Pneumonia Recurrent major depression ([facility]) Sciatica Thoracic compression fracture ([facility]) Vitamin D deficiency Past Surgical History: Past [...] mg 650 mg Oral TID Saad Ezzie, SPRAYING MACHINE OPERATOR - CARD PLACER 650 mg at 09/21/23 1339 buPROPion XL (Wellbutrin XL) 24 hr tablet 150 mg 150 mg Oral Daily Lauren Serna MD 150 mg at 09/21/23 0822 busPIRone (Buspar) tablet 15 mg 15 mg Oral TID Saad Ezzie, SPRAYING MACHINE OPERATOR - CARD PLACER 15 mg at 09/21/23 1340 calcitonin (Miacalcin) injection 50 Units 50 Units IntraMUSCular Daily Lauren Serna MD 50 Units at 09/21/23 1217 [START ON 09/22/2023] cholecalciferol (Vitamin D-3) tablet 1,000 Units 1,000 Units Oral Daily Saad Ezzie, SPRAYING MACHINE OPERATOR - CARD PLACER enoxaparin (Lovenox) syringe 40 mg 40 mg SubCUTAneous Daily Lauren Serna MD 40 mg at 09/21/23 0822 lidocaine (LMX) 4 % cream Topical PRN Lauren Serna MD melatonin tablet 3 mg 3 mg Oral Nightly Saad Ezzie, SPRAYING MACHINE OPERATOR - CARD PLACER mirtazapine (Remeron) tablet 15 mg 15 mg Oral Nightly Saad Ezzie, SPRAYING MACHINE OPERATOR - CARD PLACER 15 mg at 09/20/23 2123 mometasone-formoterol (Dulera [...] QT Interval 382 QTC Interval 446 P Astoria 46 QRS Astoria -35 T Wave Astoria 147 ND Interval 142 Impression Sinus rhythm Nonspecific T [...] Significant recent weight loss, questionable PO intake 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 Prolonged QT related to [...] primary team. 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 Initial presentation significant for hypokalemia and MARIA. [...] Acute exacerbation of chronic obstructive pulmonary disease ([facility]) 04/12/2018 Allergic rhinitis Arthritis Asthma Bronchitis Cancer ([facility]) ([facility]) skin Cervical cancer ([facility]) ([facility]) Chest pain COPD (chronic obstructive pulmonary disease) ([facility]) USE OXYGEN 3 L AT NIGHT DDD (degenerative disc disease), cervical Defect, retina, with detachment right DJD (degenerative joint disease), lumbar Emphysema lung ([facility]) Former smoker Hematuria SCHEDULED FOR THE PROCEDURE /SURGERY ON 02/11/2017 Hypokalemia Lung nodules Near syncope 09/19/2023 Osteoporosis Palpitations Pneumonia Recurrent major depression ([facility]) Sciatica Thoracic compression fracture ([facility]) Vitamin D deficiency Past Surgical History: Past Surgical History: Procedure Laterality Date CYSTOSCOPY 01/12/2017 OFFICE PROCEDURE CYSTOSCOPY 02/11/2017 C&P bladder biopsy EYE SURGERY detached retina 1994 HYSTERECTOMY 11/06/2019 ABDOMINAL RADICAL HYSTERECTOMY WITH BSO AND PELVIC LYMPH; DR. ZIYAD MENENDEZ [facility] OTHER SURGICAL HISTORY Left 12/19/2019 Med [...] mg 650 mg Oral TID Saad Ezdariene, SPRAYING MACHINE OPERATOR - CARD PLACER 650 mg at 09/21/23 1339 buPROPion XL (Wellbutrin XL) 24 hr tablet 150 mg 150 mg Oral Daily Lauren Serna MD 150 mg at 09/21/23 0822 busPIRone (Buspar) tablet 15 mg 15 mg Oral TID Saad Ezdariene, SPRAYING MACHINE OPERATOR - CARD PLACER 15 mg at 09/21/23 1340 calcitonin (Miacalcin) injection 50 Units 50 Units IntraMUSCular Daily Lauren Serna MD 50 Units at 09/21/23 1217 [START ON 09/22/2023] cholecalciferol (Vitamin D-3) tablet 1,000 Units 1,000 Units Oral Daily Saad Ezzie, SPRAYING MACHINE OPERATOR - CARD PLACER enoxaparin (Lovenox) syringe 40 mg 40 mg SubCUTAneous Daily Lauren Serna MD 40 mg at 09/21/23 0822 lidocaine (LMX) 4 % cream Topical PRN Lauren Serna MD melatonin tablet 3 mg 3 mg Oral Nightly Saad Ezzie, SPRAYING MACHINE OPERATOR - CARD PLACER mirtazapine (Remeron) tablet 15 mg 15 mg Oral Nightly Saad Ezzie, SPRAYING MACHINE OPERATOR - CARD PLACER 15 mg at 09/20/23 2123 mometasone-formoterol (Dulera [...] mg 30 mg Oral Daily Saad Ezzie, SPRAYING MACHINE OPERATOR - CARD PLACER 30 mg at 09/21/23 0822 perflutren protein [...] tablet 1 tablet Oral Nightly Saad Ezzie, SPRAYING MACHINE OPERATOR - CARD PLACER tiotropium (Spiriva Respimat) 2.5 MCG/ACT inhaler 2 [...] QT Interval 382 QTC Interval 446 P Astoria 46 QRS Astoria -35 T Wave Astoria 147 ND Interval 142 Impression Sinus rhythm Nonspecific T [...] Significant recent weight loss, questionable PO intake 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 Prolonged QT related to [...] peripherally Associated Order(s): IP CONSULT TO GERIATRICS [facility] Geriatric Medicine Inpatient Consult Service [...] depression, Vit D deficiency, Osteoporosis presented to [facility] on 09/19/23 for fall. Found to have [...] . Advance Care Planning Healthcare Power of Wood Flooring Specialist: Unknown Financial Power of Wood Flooring Specialist: Unknown Living Will:Unknown Code Status: Full Code [...] Chest pain COPD (chronic obstructive pulmonary disease) ([facility]) USE OXYGEN 3 L AT NIGHT DDD (degenerative disc disease), cervical Defect, retina, with detachment right DJD (degenerative joint disease), lumbar Emphysema lung (HCC) Former smoker Hematuria SCHEDULED FOR THE PROCEDURE /SURGERY ON 02/11/2017 Hypokalemia Lung nodules Near syncope 09/19/2023 Osteoporosis Palpitations Pneumonia Recurrent major depression ([facility]) Sciatica Thoracic compression fracture ([facility]) Vitamin D deficiency Past Surgical History: Procedure Laterality Date CYSTOSCOPY 01/12/2017 OFFICE PROCEDURE CYSTOSCOPY 02/11/2017 C&P bladder biopsy EYE SURGERY detached retina 1994 HYSTERECTOMY 11/06/2019 ABDOMINAL RADICAL HYSTERECTOMY WITH BSO AND PELVIC LYMPH; DR. ZIYAD MENENDEZ [facility] OTHER SURGICAL HISTORY Left [...] 468 ms QTC Interval 594 ms P Astoria 25 degrees QRS Astoria -48 degrees T Wave Astoria 0 degrees ND Interval 140 ms CBC auto differential Collection [...] 382 ms QTC Interval 446 ms P Astoria 46 degrees QRS Astoria -35 degrees T Wave Astoria 147 degrees ND Interval 142 ms Transthoracic echocardiogram (TTE) complete [...] PM Associated Order(s): IP CONSULT TO CARDIOLOGY [facility] [place] [facility] Cardiology Consult Note Reason for Consult/Chief Complaint: Syncope Established director surface transportation: None History of Present Illness: Gonzalo Deluca [...] primary service arrange f/u with patient's outpatient director surface transportation 1-2 wks. [] Recommended; unable to arrange at this time, will arrange post-discharge [] Arranged as follows: If there are any questions/concerns, please contact the covering provider. If no answer by Secure Chat, please call the cardiology office to obtain appropriate covering DIRECTOR OPERATING ROOM/physician. Medications: buPROPion XL, 150 mg, Oral, Daily [...] Allergic rhinitis Arthritis Asthma Bronchitis Cancer (CMS/HCC) ([facility]) skin Cervical cancer (CMS/HCC) ([facility]) Chest pain COPD (chronic obstructive pulmonary disease) ([facility]) USE OXYGEN 3 L AT NIGHT DDD (degenerative disc disease), cervical Defect, retina, with detachment right DJD (degenerative joint disease), lumbar Emphysema lung ([facility]) Former smoker Hematuria SCHEDULED FOR THE PROCEDURE /SURGERY ON 02/11/2017 Hypokalemia Lung nodules Near syncope 09/19/2023 Osteoporosis Palpitations Pneumonia Recurrent major depression ([facility]) Sciatica Thoracic compression fracture ([facility]) Vitamin D deficiency Past Surgical History Past [...] give home care orders. Melva Juárez PA-C [facility] 09-21-2023 Telephone encounter Note Ashley from [facility] Patient currently admitted for falls Need orders to follow for Home Care Call back number: [phone] [facility] 09-21-2023 Note Formatting of this n ote is different from the original. Images from the original note were not included. Care Management Progress Note Chart reviewed. Patient remains on 2 east for treatment of falls and lumbar compression. Has LSO brace at home (per Ortho notes). Geriatrics following. PT recommends return home with home care. social service liaison following. Currently on 3 liters oxygen; [...] Stay (Days): 2 GMLOS: No GMLOS Documented [facility] 09-21-2023 Note Formatting of this n ote is different from the original. Images from the original note were not included. Care Management Progress Note Chart reviewed. Patient remains on 2 east for treatment of falls and lumbar compression. Has LSO brace at home (per Ortho notes). Geriatrics following. PT recommends return home with home care. social service liaison following. Currently on 3 liters oxygen; [...] Stay (Days): 2 GMLOS: No GMLOS Documented [facility] 09-21-2023 Note Formatting of this n ote is different from the original. Start PACC Note Home Health Referral Educated patient and daughter, Karishma, on Home Care and services available. Patient offered choice of available HHC and agreeable to SN, PT services with [facility] - [facility] Care. Care Types: [...] is noted as yes - consider a OFFICE MOVER evaluation once the patient returns home. START PATIENT REGISTRATION INFORMATION Order Information Order Signing Physician: Nickolas Marrero MD Service Ordered RN ?: Yes Service Ordered PT ?: Yes Service Ordered OT ?: No Service Ordered ST ?: No Service Ordered OFFICE MOVER?:No Service Ordered TENNIS CENTRE MANAGER?: No Following Physician: HERMINIA CASE MD Following Physician Overseeing Physician: HERMINIA CASE MD (Required for Residents only) Agreeable to Follow? Yes Date/Time of Call 09/21/23 2:04 PM, Spoke with: yes per call back received from office . Care Coordination Same Day SOC?: No Primary Care Physician: HERMINIA CASE MD Primary Care Physician Primary Care Physician Address: [address] [place], [place] [id number] Visit Instructions: N/A Service Discharge Location Type: Home with Home Health Care Service Facility Name: N/A Service Floor Facility: N/A Service Room No: N/A Demographics Patient Last Name: Yosi Patient First Name: Gonzalo Language/Communication Barrier: DAUGHTER KARISHMA IS CONTACT Service Address: [address] Service City: [facility]: [place] Service ZIP: [address] Service Other phone numbers: Telephone Information: Emergency Contact: Extended Emergency Contact Information Primary Emergency Contact: Karishma Deluca Address: [address] [place] [address] [facility] Relation: Daughter Secondary Emergency Contact: Jace Deluca Mobile Relation: Son Admission Information Admit Date: 09/19/2023 Patient status at discharge: Inpatient Admitting Diagnosis: Near syncope [R55] Closed head injury, initial encounter [S09.90XA] Fall, initial encounter [W19.XXXA] Compression fracture of T7 vertebra, initial encounter ([facility]) [S22.060A] Compression fracture of T8 vertebra, initial encounter ([facility]) [S22.060A] Compression fracture of T5 vertebra, initial encounter ([facility]) [S22.050A] Compression fracture of L1 vertebra, initial encounter ([facility]) [S32.010A] Caregiver Information Caregiver First Name: DESTINY Caregiver Last Name: DESTINY Caregiver Relationship to Patient NA Caregiver Phone Number: NA Caregiver Notes: N/A [email or web address] List No END PATIENT REGISTRATION INFORMATION Pt [...] diagnoses: Discharge Date: TBD Referral Source-PACC: (Hospital/Unit): [facility] / B2-261/B2-261 A End PACC Note [facility] 09-21-2023 Note Formatting of this n ote is different from the original. Start PACC Note Home Health Referral Educated patient and daughter, Karishma, on Home Care and services available. Patient offered choice of available HHC and agreeable to SN, PT services with [facility] - Home Care. Care [...] is noted as yes - consider a OFFICE MOVER evaluation once the patient returns home. START PATIENT REGISTRATION INFORMATION Order Information Order Signing Physician: Nickolas Marrero MD Service Ordered RN ?: Yes Service Ordered PT ?: Yes Service Ordered OT ?: No Service Ordered ST ?: No Service Ordered OFFICE MOVER?:No Service Ordered TENNIS CENTRE MANAGER?: No Following Physician: HERMINIA CASE MD Following Physician Overseeing Physician: HERMINIA CASE MD (Required for Residents only) Agreeable to Follow? Yes Date/Time of Call 09/21/23 2:04 PM, Spoke with: yes per call back received from office . Care Coordination Same Day SOC?: No Primary Care Physician: HERMINIA CASE MD Primary Care Physician Primary Care Physician Address: [address] [place] [id number] Visit Instructions: N/A Service Discharge Location Type: Home with Home Health Care Service Facility Name: N/A Service Floor Facility: N/A Service Room No: N/A Demographics Patient Last Name: Yosi Patient First Name: Gonzalo Language/Communication Barrier: DAUGHTER KARISHMA IS CONTACT Service Address: [address] [place] [address] Service City: [facility] ST: [place] Service ZIP: [address] Service Other phone numbers: Telephone Information: Emergency Contact: Extended Emergency Contact Information Primary Emergency Contact: Nacho Delucai Address: [address] [place] [address] [place] [address] [facility] Relation: Daughter Secondary Emergency Contact: Jace Deluca [place] Relation: Son Admission Information Admit Date: 09/19/2023 Patient status at discharge: Inpatient Admitting Diagnosis: Near syncope [R55] Closed head injury, initial encounter [S09.90XA] Fall, initial encounter [W19.XXXA] Compression fracture of T7 vertebra, initial encounter ([facility]) [S22.060A] Compression fracture of T8 vertebra, initial encounter ([facility]) [S22.060A] Compression fracture of T5 vertebra, initial encounter ([facility]) [S22.050A] Compression fracture of L1 vertebra, initial encounter ([facility]) [S32.010A] Caregiver Information Caregiver First Name: DESTINY Caregiver Last Name: NA Caregiver Relationship to Patient NA Caregiver Phone Number: NA Caregiver Notes: N/A [email or web address] List No END PATIENT REGISTRATION INFORMATION Pt [...] diagnoses: Discharge Date: TBD Referral Source-PACC: (Hospital/Unit): [facility] / B2-261/B2-261 A End PACC Note [facility] 09-21-2023 Plan of care note The patient is Moderately Unstable - Medium risk of patient condition declining or worsening The patient's goals for the shift include safety and comfort The clinical goals for the shift include safety [facility] 09-20-2023 Consult note Associated Order (s): IP CONSULT TO GERIATRICS [facility] Geriatric Medicine Inpatient Consult Service [...] depression, Vit D deficiency, Osteoporosis presented to [facility] on 09/19/23 for fall. Found to have [...] . Advance Care Planning Healthcare Power of Wood Flooring Specialist: Unknown Financial Power of Wood Flooring Specialist: Unknown Living Will:Unknown Code Status: Full Code [...] Allergic rhinitis Arthritis Asthma Bronchitis Cancer (CMS/HCC) ([facility]) skin Cervical cancer (CMS/HCC) ([facility]) Chest pain COPD (chronic obstructive pulmonary disease) ([facility]) USE OXYGEN 3 L AT NIGHT DDD (degenerative disc disease), cervical Defect, retina, with detachment right DJD (degenerative joint disease), lumbar Emphysema lung ([facility]) Former smoker Hematuria SCHEDULED FOR THE PROCEDURE /SURGERY ON 02/11/2017 Hypokalemia Lung nodules Near syncope 09/19/2023 Osteoporosis Palpitations Pneumonia Recurrent major depression ([facility]) Sciatica Thoracic compression fracture ([facility]) Vitamin D deficiency Past Surgical History: Procedure [...] 468 ms QTC Interval 594 ms P Ast[place] 25 degrees QRS Astoria -48 degrees T Wave [place] 0 degrees ND Interval 140 ms CBC auto differential Collection [...] 44.2 (L) >60.0 mL/min/1.73m*2 Blood gas, venous ([facility]) Collection Time: 09/19/23 5:54 PM [...] 382 ms QTC Interval 446 ms P [place] 46 degrees QRS [place]oria -35 degrees T Wave Ast[place] 147 degrees ND Interval 142 ms Transthoracic echocardiogram (TTE) complete [...] Telles APRN - [place] 09/20/23 4:58 PM [facility] 09-20-2023 Note Formatting of this n ote might be different from the original. Care Managment Initial Assessment Date: 09/20/2023 Patient Name: Gonzalo Deluca : 1955 Patient Information Source of Information: Patient Cognition/Language: WFL - Within Functional Limits Permission given to speak with patient sales representative printing supplies/caregiver as indicated: Yes Confirmation of Payer with patient/family: Yes Payer Name: [facility] Dual Complete [place]: No Confirmation of Primary Care Physician: Confirmed [...] Daily Living Prescription Coverage: Yes Pharmacy Used: [facility] in [place] Medication Management: Independent Transportation/Shopping: Transportation Mode: Car [...] to be discharged to: Home with possible [facility] Discharge Planning Actions: Continue to follow [...] home with possible HHC at this time. wireless sales manager to follow and assist as needed. Carolina Alvarez RN [facility] 09-20-2023 Note Formatting of this n ote might be different from the original. Care Managment Initial Assessment Date: 09/20/2023 Patient Name: Gonzalo Deluca : 1955 Patient Information Source of Information: Patient Cognition/Language: WFL - Within Functional Limits Permission given to speak with patient sales representative printing supplies/caregiver as indicated: Yes Confirmation of Payer with patient/family: Yes Payer Name: [facility] Dual Complete : No Confirmation of Primary [...] Prescription Coverage: Yes Pharmacy Used: [facility] in [place] Medication Management: Independent Transportation/Shopping: Transportation Mode: Car [...] home with possible HHC at this time. wireless sales manager to follow and assist as needed. Carolina Alvarez RN [facility] 09-20-2023 Consult note Associated Order (s): IP CONSULT TO CARDIOLOGY [facility] [place] [facility] Cardiology Consult Note Reason for Consult/Chief Complaint: Syncope Established director surface transportation: None History of Present Illness: Gonzalo Deluca [...] primary service arrange f/u with patient's outpatient director surface transportation 1-2 wks. [] Recommended; unable to arrange at this time, will arrange post-discharge [] Arranged as follows: If there are any questions/concerns, please contact the covering provider. If no answer by Secure Chat, please call the cardiology office to obtain appropriate covering DIRECTOR OPERATING ROOM/physician. Medications: buPROPion XL, 150 mg, Oral, Daily [...] Ovalles MD DATE of SERVICE: 09/20/2023 T [facility] 09-20-2023 Consult note Associated Order (s): [...] Allergic rhinitis Arthritis Asthma Bronchitis Cancer (CMS/HCC) ([facility]) skin Cervical cancer (CMS/HCC) ([facility]) Chest pain COPD (chronic obstructive pulmonary disease) ([facility]) USE OXYGEN 3 L AT NIGHT DDD (degenerative disc disease), cervical Defect, retina, with detachment right DJD (degenerative joint disease), lumbar Emphysema lung ([facility]) Former smoker Hematuria SCHEDULED FOR THE PROCEDURE /SURGERY ON 02/11/2017 Hypokalemia Lung nodules Near syncope 09/19/2023 Osteoporosis Palpitations Pneumonia Recurrent major depression ([facility]) Sciatica Thoracic compression fracture ([facility]) Vitamin D deficiency Past Surgical History Past [...] the consult we will follow with you. [facility] 09-20-2023 Plan of care note Problem: [...] Recommendations to address these barriers include . [facility] 09-19-2023 Nurse Note Explained to patient about transfer to 261. Patient verbalized understanding. Report called to 2e rn. No further questions at present. Attempted to restart potassium. Patient c./o paon at iv site. Potassium slowed and arm raised. Patient transported with oxygen and transport monitor to room 261. [facility] 09-19-2023 Nurse Note Explained to patient [...] when bed available. documented in this encounter [facility] 09-19-2023 History and physical note Images from the original note were not included. History and Physical [facility] Gonzalo Deluca : 1955 AGE 67 [...] on TueSep 19, 2023 6:48 PM (Active) [place] RES: Heydi Ceballos MD, starting on TueSep [...] Allergic rhinitis Arthritis Asthma Bronchitis Cancer (CMS/HCC) ([facility]) skin Cervical cancer (CMS/HCC) ([facility]) Chest pain COPD (chronic obstructive pulmonary disease) ([facility]) USE OXYGEN 3 L AT NIGHT DDD (degenerative disc disease), cervical Defect, retina, with detachment right DJD (degenerative joint disease), lumbar Emphysema lung ([facility]) Former smoker Hematuria SCHEDULED FOR THE PROCEDURE /SURGERY ON 02/11/2017 Hypokalemia Lung nodules Near syncope 09/19/2023 Osteoporosis Palpitations Pneumonia Recurrent major depression ([facility]) Sciatica Thoracic compression fracture ([facility]) Vitamin D deficiency She is on 3 liters of oxygen chronically Past Surgical History: Procedure Laterality Date CYSTOSCOPY 01/12/2017 OFFICE PROCEDURE CYSTOSCOPY 02/11/2017 C&P bladder biopsy EYE SURGERY detached retina 1994 HYSTERECTOMY 11/06/2019 ABDOMINAL RADICAL HYSTERECTOMY WITH BSO AND PELVIC LYMPH; DR. ZIYAD MARISCAL [facility] OTHER SURGICAL HISTORY Left 12/19/2019 Med [...] 09/19/2023 468 QTC Interval 09/19/2023 594 P [place] 09/19/2023 25 QRS [place] 09/19/2023 -48 T Wave [place] 09/19/2023 0 ND Interval 09/19/2023 140 Auto WBC 09/19/2023 19.5 [...] QT Interval 468 QTC Interval 594 P [place] 25 QRS [place] -48 T Wave Astoria 0 ND Interval 140 Impression Sinus rhythm Inferior infarct, [...] will request orthopedics to see her as [facility] orthopedics has seen her in the past [...] pharmacologic and mechanical contraindicated 09/19/2023 Gonzalo Deluca [id number] Any scheduled follow up appointments Extended Emergency Contact Information Primary Emergency Contact: Karishma Deluca Address: [address] [place] [address] [place] [address] [facility] Mobile Relation: Daughter Secondary Emergency Contact: Jace Deluca Mobile Relation: Son Portions of this note may be electronically transcribed. Please forward a copy of this H&P to the primary care physician. [facility] Phone: 09-19-2023 History and physical note Images from the original note were not included. History and Physical [facility] Gonzalo Deluca : 1955 AGE 67 [...] on TueSep 19, 2023 6:48 PM (Active) [place] RES: Heydi Ceballos MD, starting on TueSep [...] Allergic rhinitis Arthritis Asthma Bronchitis Cancer (CMS/HCC) ([facility]) skin Cervical cancer (CMS/HCC) ([facility]) Chest pain COPD (chronic obstructive pulmonary disease) ([facility]) USE OXYGEN 3 L AT NIGHT DDD (degenerative disc disease), cervical Defect, retina, with detachment right DJD (degenerative joint disease), lumbar Emphysema lung ([facility]) Former smoker Hematuria SCHEDULED FOR THE PROCEDURE /SURGERY ON 02/11/2017 Hypokalemia Lung nodules Near syncope 09/19/2023 Osteoporosis Palpitations Pneumonia Recurrent major depression ([facility]) Sciatica Thoracic compression fracture ([facility]) Vitamin D deficiency She is on 3 [...] 09/19/2023 468 QTC Interval 09/19/2023 594 P [place] 09/19/2023 25 QRS [place] 09/19/2023 -48 T Wave [place] 09/19/2023 0 ND Interval 09/19/2023 140 Auto WBC 09/19/2023 19.5 [...] QT Interval 468 QTC Interval 594 P [place] 25 QRS [place] -48 T Wave [place] 0 ND Interval 140 Impression Sinus rhythm Inferior infarct, [...] will request orthopedics to see her as [facility] orthopedics has seen her in the past [...] pharmacologic and mechanical contraindicated 09/19/2023 Gonzalo Deluca [id number] Any scheduled follow up appointments Extended Emergency Contact Information Primary Emergency Contact: Karishma Deluca Address: [address] [place] [address] [place] [address] [facility] Mobile Relation: Daughter Secondary Emergency Contact: Jace Deluca Mobile Relation: Son Portions of this note may be electronically transcribed. Please forward a copy of this H&P to the primary care physician. documented in this encounter [facility] 09-19-2023 Nurse Note Patient arrived from er to room 463 bed 2. Patient is alert and oriented. Realized patient required private room bed coordinator notified. Will be transferred when bed available. [facility] 09-19-2023 Emergency department Note Floor advised of pt coming to floor. VERA Brown 09/19/231945 [facility] 09-19-2023 Emergency department Note Floor advised of pt coming to floor. VERA Brown 09/19/231945 Pt provided with a toni laurie and chicken salad sandwich. VERA Brown 09/19/231939 Pt on 2lpm of oxygen. Pt 89% on room air. Oxygen increased to 3lpm. VERA Brown 09/19/23 1732 Pt to radiology. VERA Brown 09/19/23 1711 [...] Allergic rhinitis Arthritis Asthma Bronchitis Cancer (CMS/HCC) ([facility]) skin Cervical cancer (CMS/HCC) ([facility]) Chest pain COPD (chronic obstructive pulmonary disease) ([facility]) USE OXYGEN 3 L AT NIGHT DDD (degenerative disc disease), cervical Defect, retina, with detachment right DJD (degenerative joint disease), lumbar Emphysema lung ([facility]) Former smoker Hematuria SCHEDULED FOR THE PROCEDURE /SURGERY ON 02/11/2017 Hypokalemia Lung nodules Near syncope 09/19/2023 Osteoporosis Palpitations Pneumonia Recurrent major depression ([facility]) Sciatica Thoracic compression fracture ([facility]) Vitamin D deficiency SURGICAL HISTORY Past Surgical [...] Resource Strain: Low Risk (05/20/2023) Received from [facility] Overall Financial Resource Strain (CARDIA) Difficulty of Paying Living Expenses: Not very hard Food Insecurity: No Food Insecurity (05/20/2023) Received from [facility] Hunger Vital Sign Worried About Running Out of Food in the Last Year: Never true Ran Out of Food in the Last Year: Never true Transportation Needs: No Transportation Needs (05/20/2023) Received from [facility] PRAPARE - Transportation Lack of Transportation (Medical): No Lack of Transportation (Non-Medical): No Physical Activity: Inactive (05/20/2023) Received from [facility] Exercise Vital Sign Days of Exercise per Week: 0 days Minutes of Exercise per Session: 0 min Stress: Stress Concern Present (05/20/2023) Re[facility] [place] of Occupational Health - Occupational Stress Questionnaire Feeling of Stress : To some extent Social Connections: Unknown (05/20/2023) Received from [facility], [facility] Social Connection and Isolation Panel [NHANES] Frequency of Communication with Friends and Family: Twice a week Frequency of Social Gatherings with Friends and Family: Patient declined Attends Mandaen Services: Never Active Member of Clubs or Organizations: No Attends Club or Organization Meetings: Patient declined Marital Status: Intimate Partner Violence: Not At Risk (05/21/2022) Humiliation, Afraid, Rape, and Kick questionnaire Fear of Current or Ex-Partner: No Emotionally Abused: No Physically Abused: No Sexually Abused: No Housing Stability: Low Risk (05/20/2023) Received from [facility], [facility] Housing Stability Vital Sign Unable to Pay for Housing in the Last Year: No Number of Places Lived in the Last Year: 1 In the last 12 months, was there a time when you did not have a steady place to sleep or slept in a long term (including now)?: No SCREENINGS PHYSICAL EXAM ED [...] [facility] for official interpretation. RADIOLOGY: Refer to [facility] below for my independent interpretation. Interpretation [...] Culture. Procedure Abnormality Status --------- ------ Complete Urinalysis[[id number]] Please view results for these tests on [...] Compression fracture of T5 vertebra, initial encounter ([facility]) Compression fracture of T7 vertebra, initial encounter ([facility]) Compression fracture of T8 vertebra, initial encounter (HCC) Compression fracture of L1 vertebra, initial encounter ([facility]) External records reviewed: Chronic conditions impacting care: [...] Compression fracture of T5 vertebra, initial encounter ([facility]) 5. Compression fracture of T7 vertebra, initial encounter ([facility]) 6. Compression fracture of T8 vertebra, initial encounter ([facility]) 7. Compression fracture of L1 vertebra, initial encounter ([facility]) DISPOSITION Admit 09/19/2023 06:48:16 PM PATIENT REFERRED [...] Medicine Resident Heydi Ceballos MD Resident 09/19/23 5297 Emergency Department Encounter [facility] Patient: Gonzalo Deluca : 1955 [...] for clarification.) Jono Weathers MD Acute Care [facility] Jono Weathers MD 09/19/231903 documented in this encounter [facility] 09-19-2023 Emergency department Note Pt provided with a toni laurie and chicken salad sandwich. VERA Brown 09/19/23 1940 [facility] 09-19-2023 Emergency department Note Pt on 2lpm of oxygen. Pt 89% on room air. Oxygen increased to 3lpm. VERA Brown 09/19/23 1732 [facility] 09-19-2023 Emergency department Note Pt to radiology. VERA Brown 09/19/23 1711 [facility] 09-19-2023 Physician Emergency department Note EMERGENCY [...] Allergic rhinitis Arthritis Asthma Bronchitis Cancer (CMS/HCC) ([facility]) skin Cervical cancer (CMS/HCC) ([facility]) Chest pain COPD (chronic obstructive pulmonary disease) ([facility]) USE OXYGEN 3 L AT NIGHT DDD (degenerative disc disease), cervical Defect, retina, with detachment right DJD (degenerative joint disease), lumbar Emphysema lung ([facility]) Former smoker Hematuria SCHEDULED FOR THE PROCEDURE /SURGERY ON 02/11/2017 Hypokalemia Lung nodules Near syncope 09/19/2023 Osteoporosis Palpitations Pneumonia Recurrent major depression ([facility]) Sciatica Thoracic compression fracture ([facility]) Vitamin D deficiency SURGICAL HISTORY Past Surgical [...] Resource Strain: Low Risk (05/20/2023) Received from [facility] Overall Financial Resource Strain (CARDIA) Difficulty of Paying Living Expenses: Not very hard Food Insecurity: No Food Insecurity (05/20/2023) Received from [facility] Hunger Vital Sign Worried About Running Out of Food in the Last Year: Never true Ran Out of Food in the Last Year: Never true Transportation Needs: No Transportation Needs (05/20/2023) Received from [facility] PRAPARE - Transportation Lack of Transportation (Medical): No Lack of Transportation (Non-Medical): No Physical Activity: Inactive (05/20/2023) Received from [facility] Exercise Vital Sign Days of Exercise per Week: 0 days Minutes of Exercise per Session: 0 min Stress: Stress Concern Present (05/20/2023) Received from [facility] [place] of Occupational Health - Occupational Stress Questionnaire Feeling of Stress : To some extent Social Connections: Unknown (05/20/2023) Received from [facility] Social Connection and Isolation Panel [NHANES] Frequency of Communication with Friends and Family: Twice a week Frequency of Social Gatherings with Friends and Family: Patient declined Attends Mandaen Services: Never Active Member of Clubs or Organizations: No Attends Club or Organization Meetings: Patient declined Marital Status: Intimate Partner Violence: Not At Risk (05/21/2022) Humiliation, Afraid, Rape, and Kick questionnaire Fear of Current or Ex-Partner: No Emotionally Abused: No Physically Abused: No Sexually Abused: No Housing Stability: Low Risk (05/20/2023) Received from [facility] Housing Stability Vital Sign Unable to Pay for Housing in the Last Year: No Number of Places Lived in the Last Year: 1 In the last 12 months, was there a time when you did not have a steady place to sleep or slept in a long term (including now)?: No SCREENINGS PHYSICAL EXAM ED [...] me with my interpretation noted below in [facility]. Refer to [facility] for official interpretation. RADIOLOGY: Refer to [facility] below for my independent interpretation. Interpretation [...] Culture. Procedure Abnormality Status --------- ------ Complete Urinalysis[[id number]] Please view results for these tests on [...] Compression fracture of T5 vertebra, initial encounter ([facility]) Compression fracture of T7 vertebra, initial encounter ([facility]) Compression fracture of T8 vertebra, initial encounter ([facility]) Compression fracture of L1 vertebra, initial encounter ([facility]) External records reviewed: Chronic conditions impacting care: [...] Compression fracture of T5 vertebra, initial encounter ([facility]) 5. Compression fracture of T7 vertebra, initial encounter ([facility]) 6. Compression fracture of T8 vertebra, initial encounter ([facility]) 7. Compression fracture of L1 vertebra, initial encounter ([facility]) DISPOSITION Admit 09/19/2023 06:48:16 PM PATIENT REFERRED [...] Medicine Resident Heydi Ceballos MD Resident 09/19/231907 [facility] 09-19-2023 Physician Emergency department Note Emergency Department Encounter [facility] Patient: Gonzalo Deluca : 1955 [...] entirety of this encounter. In brief, Gonzalo Deluac is a 67 y.o. that presents to [...] [employer] Jono Weathers MD 09/19/231903 [facility] Phone: 09-16-2023 Telephone encounter Note Prescription Refill [...] Shay LPN September 16, 2023 10:08 AM [facility] 09-16-2023 Miscellaneous Notes Prescription Refill [...] 2023 10:08 AM documented in this encounter [facility] 09-15-2023 Telephone encounter Note Mychart sent [facility] 09-15-2023 Miscellaneous Notes Mychart sent [...] Silvia Trejo MA documented in this encounter [facility] 09-15-2023 Telephone encounter Note Schedule follow up appt with me for chronic pain [facility] 09-15-2023 Telephone encounter Note Pharmacy [...] 7.9 oz) Please advise. Silvia Trejo MA [facility] 09-14-2023 Telephone encounter Note Prescription Refill Information [...] Shay LPN September 14, 2023 10:57 AM [facility] 09-14-2023 Miscellaneous Notes Prescription Refill Information The [...] 2023 10:57 AM documented in this encounter [facility] 09-08-2023 Note HNO ID: [id number] Author: BARBI GOLDBERG MD Service: ? Author [...] PREDNISONE 10 MG TABLET Barbi Goldberg MD [facility] 09-08-2023 History of Presen t illness [...] due on 03/21/2023 documented in this encounter [facility] 09-08-2023 Note HNO ID: [id number] Author: TATE WEATHERS MA Service: ? Author Type: Master Craftsman Type: Progress Notes Filed: 09/08/2023 16:09 Note Text: Mammogram Screening Never done Colorectal Cancer Screening Never done RSV Vaccine(1 - 1-dose 60+ series) Never done Shingrix Vaccine(2 of 2) due on 12/06/2019 Bone Density Screening due on 2021 Lung Cancer Screening due on 10/14/2022 Covid-19 Vaccine( season) Never done Advance Directive Discussion due on 03/21/2023 [facility] 09-07-2023 Telephone encounter Note LM for patient letting her know we have not received the form from [employer]. Whit Shay LPN [facility] 09-07-2023 Miscellaneous Notes LM for patient letting her know we have not received the form from [employer]. Whit Shay LPN Gonzalo is calling Herminia Case MD today with concern regarding Electronic Communication (FAX from [employer] is going to be coming over that needs to be faxed back to them ) Patient has been identified by name and birthdate. Duration of symptoms: N/A Person calling: self daughter: Karishma Call patient at: at home [phone] (home) [phone] (cell) Was an appointment scheduled: No Closing statement: Results or non-symptom based questions: Thank you for calling [facility], your call will be returned within the next business day. Lala Jay documented in this encounter [facility] 09-06-2023 Telephone encounter Note Gonzalo is calling Herminia Case MD today with concern regarding Electronic Communication (FAX from [employer] is going to be coming over that needs to be faxed back to them ) Patient has been identified by name and birthdate. Duration of symptoms: N/A Person calling: self daughter: Karishma Call patient at: at home [phone] (home) [phone] (cell) Was an appointment scheduled: No Closing statement: Results or non-symptom based questions: Thank you for calling [facility], your call will be returned within the next business day. Lala Rosas Pss [facility] 08-22-2023 Telephone encounter Note Last appointment: 05/20/23 Next appointment: 08/24/23 Pharmacy verified in [facility]. Refill(s) requested: Requested Prescriptions Pending Prescriptions Disp Refills oxyCODONE-acetaminophen (PERCOCET) 5-325 mg tablet 120 tablet 0 Sig: Take 1 tablet by mouth every 6 hours as needed for pain for up to 30 days. Refused Prescriptions Disp Refills cyclobenzaprine (FLEXERIL) 5 mg tablet 30 tablet 2 Sig: Take 1 tablet by mouth every 12 hours. Order(s) pended. Please advise. Tate Weathers MA, SHOE TRIMMER [facility] 08-22-2023 Miscellaneous Notes Last appointment: 05/20/23 Next appointment: 08/24/23 Pharmacy verified in [facility]. Refill(s) requested: Requested Prescriptions Pending Prescriptions Disp Refills oxyCODONE-acetaminophen (PERCOCET) 5-325 mg tablet 120 tablet 0 Sig: Take 1 tablet by mouth every 6 hours as needed for pain for up to 30 days. Refused Prescriptions Disp Refills cyclobenzaprine (FLEXERIL) 5 mg tablet 30 tablet 2 Sig: Take 1 tablet by mouth every 12 hours. Order(s) pended. Please advise. Tate Weathers MA, SHOE TRIMMER documented in this encounter [facility] 08-05-2023 Telephone encounter Note Last appointment: 06/10/23 Next appointment: 08/16/23 Pharmacy verified in [facility]. Refill(s) requested: Requested Prescriptions Pending Prescriptions Disp Refills cyclobenzaprine (FLEXERIL) 5 mg tablet [Pharmacy Med Name: CYCLOBENZAPRINE 5 MG TABLET] 30 tablet 2 Sig: take 1 tablet by mouth twice a day as needed Order(s) pended. Please advise. Whit Shay LPN, CMA [facility] 08-05-2023 Miscellaneous Notes Last appointment: 06/10/23 Next appointment: 08/16/23 Pharmacy verified in [facility]. Refill(s) requested: Requested Prescriptions Pending Prescriptions Disp Refills cyclobenzaprine (FLEXERIL) 5 mg tablet [Pharmacy Med Name: CYCLOBENZAPRINE 5 MG TABLET] 30 tablet 2 Sig: take 1 tablet by mouth twice a day as needed Order(s) pended. Please advise. Whit Shay LPN, CMA documented in this encounter [facility] 07-23-2023 Telephone encounter Note Last appointment: 06/10/23 Next appointment: 08/03/23 Pharmacy verified in [facility]. Refill(s) requested: Requested Prescriptions Pending Prescriptions Disp Refills oxyCODONE-acetaminophen (PERCOCET) 5-325 mg tablet 120 tablet 0 Sig: Take 1 tablet by mouth every 6 hours as needed for pain for up to 30 days. Order(s) pended. Please advise. Whit Shay LPN, CMA [facility] 07-23-2023 Miscellaneous Notes Last appointment: 06/10/23 Next appointment: 08/03/23 Pharmacy verified in [facility]. Refill(s) requested: Requested Prescriptions Pending Prescriptions Disp Refills oxyCODONE-acetaminophen (PERCOCET) 5-325 mg tablet 120 tablet 0 Sig: Take 1 tablet by mouth every 6 hours as needed for pain for up to 30 days. Order(s) pended. Please advise. Whit Shay LPN SHOE TRIMMER documented in this encounter [facility] 07-20-2023 Telephone encounter Note Pharmacy [...] for: B12 Please advise. Nicole Sabillon MA [facility] 07-20-2023 Miscellaneous Notes Pharmacy verified in [facility] Patient has been identified by name [...] Nicole Sabillon MA documented in this encounter [facility] 07-08-2023 Telephone encounter Note LM for patient to call the office. Whit Shay LPN [facility] 07-08-2023 Miscellaneous Notes LM for patient to call the office. Whit Shay LPN Rx sent for advair which is similar. Received fax from [facility], the Fluticasone-Vilanterol 200-25, is not covered by insurance. Please advise. Whit Shay LPN documented in this encounter [facility] 07-08-2023 Telephone encounter Note Rx sent for advair which is similar. [facility] 07-04-2023 Miscellaneous Notes Pharmacy verified in [facility] Patient has been identified by name [...] Alejandra Reno MA documented in this encounter [facility] 06-30-2023 Telephone encounter Note Received fax from [facility], the Fluticasone-Vilanterol 200-25, is not covered by insurance. Please advise. Whit Shay LPN [facility] 06-28-2023 Miscellaneous Notes Last appointment: 06/10/23 Next appointment: 07/22/23 Pharmacy verified in [place]. Refill(s) requested: Requested Prescriptions Pending Prescriptions Disp Refills fluticasone-vilanterol (BREO ELLIPTA) 200-25 mcg/dose inhaler 60 Each 5 Sig: Inhale 1 Inhalation as instructed once daily. Order(s) pended. Please advise. Whit Shay LPN, SHOE TRIMMER documented in this encounter [facility] 06-27-2023 Miscellaneous Notes Pharmacy verified in [facility] Patient has been identified by name [...] Alejandra Reno MA documented in this encounter [facility] 06-24-2023 Miscellaneous Notes Last appointment: 06/10/23 Next appointment: 07/22/23 Pharmacy verified in [facility]. Refill(s) requested: Requested Prescriptions Pending Prescriptions Disp Refills busPIRone (BUSPAR) 15 mg tablet 90 tablet 0 Sig: Take 1 tablet by mouth three times a day. Order(s) pended. Please advise. Rayo Roman MA, SHOE TRIMMER documented in this encounter [facility] 06-11-2023 Miscellaneous Notes Last appointment: 06/10/23 Next appointment: 07/22/23 Pharmacy verified in [facility]. Refill(s) requested: Requested Prescriptions Pending Prescriptions Disp Refills cyclobenzaprine (FLEXERIL) 5 mg tablet [Pharmacy Med Name: CYCLOBENZAPRINE 5 MG TABLET] 30 tablet 2 Sig: take 1 tablet by mouth twice a day as needed Order(s) pended. Please advise. Whit Shay LPN, SHOE TRIMMER documented in this encounter [facility] 06-10-2023 History of Presen t illness Narrative VIRTUAL VISIT PROGRESS NOTE This is a virtual visit using [employer] Video Visit. It required patient-provider interaction for the medical decision making as documented below. I have communicated my name and active licensure. The patient's identity and physical location were verified at the time of this visit. Either the patient or their legal sales representative printing supplies has been informed of the risks and [...] Diagnosis Date COPD (chronic obstructive pulmonary disease) ([facility]) DDD (degenerative disc disease), lumbar Encounter for [...] Herminia Case MD documented in this encounter [facility] 05-27-2023 Miscellaneous Notes Pharmacy verified [...] Nicole Sabillon Ma documented in this encounter [facility] 05-26-2023 Miscellaneous Notes Last appointment: 05-20-23 Next appointment: 06-10-23 Pharmacy verified in [facility]. Refill(s) requested: Requested Prescriptions Pending Prescriptions Disp Refills busPIRone (BUSPAR) 15 mg tablet 90 tablet 0 Sig: Take 1 tablet by mouth three times a day. Order(s) pended. Please advise. Evangelina Baltazar MA, [facility] documented in this encounter [facility] 05-25-2023 Miscellaneous Notes Type of letter/form/fax request - orders Form received from [facility] Placed on desk () for completion. Completed form needs to be faxed to [phone]. Route to [place] when form completed for processing documented in this encounter [facility] 05-25-2023 Miscellaneous Notes Request completed and faxed to [phone] with confirmation of receipt. Placed on Whit TRIANA desk for filing Done. Type of letter/form/fax request - Home Health Care Orders Form received from [facility] on 05/18/23 floor and placed on desk () for completion. Completed form needs to be faxed to [phone]. Route to [place] when form completed for processing documented in this encounter [facility] 05-20-2023 History of Presen t illness Narrative VIRTUAL VISIT PROGRESS NOTE This is a virtual visit using [employer] Video Visit. It required patient-provider interaction for the medical decision making as documented below. I have communicated my name and active licensure. The patient's identity and physical location were verified at the time of this visit. Either the patient or their legal sales representative printing supplies has been informed of the risks and [...] Herminia Case MD documented in this encounter [facility] 05-19-2023 Miscellaneous Notes Home care Certification Form 485 received from 05/18/23. For cert dates 05/11/23 to 07/09/23 that were signed on 05/18/23. Recertification Patient's home health 485 form / care plan for stated certification period reviewed and signed. Relevant medical records were reviewed. No changes were indicated documented in this encounter [facility] 05-18-2023 Miscellaneous Notes Request completed and faxed. Done. Type of letter/form/fax request - Home Health Care Orders Form received from [facility] on floor and placed on MD desk () for completion. Completed form needs to be faxed to [phone]. Route to [place] when form completed for processing documented in this encounter [facility] 05-09-2023 Miscellaneous Notes Request completed and faxed. Type of letter/form/fax request - Home Health Care Orders Form received from [facility] on 05/06/23 floor and placed on MD desk () for completion. Completed form needs to be faxed to [phone]. Route to [place] when form completed for processing documented in this encounter [facility] 05-02-2023 History of Presen t illness Narrative Patient presents with: Follow Up HPI: Gonzalo Deluca is a 67 year old female who presents to the office today for follow up. Anxiety - on paxil, switched from cymbalta to paxil. Chronic pain Left hip fracture - 10/2022 Compression fracture 01/2023 Went to rehab , then home [place] home currently, home nursing PT and [...] Prosthetic Devices, Implants and Grafts, Initial Encounter ([facility]) Pna (Pneumonia) Right Arm Weakness [...] due on 03/21/2023 documented in this encounter [facility] 05-02-2023 Instructions Whit Shay LPN - 05/02/2023 2:26 PM EST [facility] TEST INFORMATION [facility] HOURS: Lab is open: 7:30am to 5:00pm - , 7:30am to 4:00pm on Tue and 8am -12pm on Tue. The lab is located in [facility] on the first floor. There is a registration window at the lab, available 7 am to 3 pm Tuesday - Tuesday. If registration is unavailable at the lab, you may register at the patient registration office near the front lobby of the [facility]. SCHEDULING A LAB APPOINTMENT: Laboratory appointments are recommended.Walk ins are still accepted. Call [phone] or schedule via [employer] scheduling ticket. ROUTINE LAB ORDERS 60 days [...] REFILL REQUESTS Request prescription refills through your [employer] account or contact your Pharmacy. My Chart Schedule My Appointment enables you to view your established primary care provider's open schedule and book an appointment online in real-time. This feature is available in internal medicine, family medicine, or pediatrics at any of our [facility] locations and main campus. documented in this encounter [facility] 04-29-2023 Miscellaneous Notes Spoke to Amanda who states she has been seeing patient for a few months for palliative care. Discharged from facility about a month ago Fall and Hip fx Fall with femur fx On continuous O2 3.5L - COPD Clonazepam not reordered when she left facility - provider requesting OV Walking with walker [facility] home health care nurse also seeing pt. OV scheduled Tuesday Gonzalo is a patient of Herminia Case MD today NADEEM Patel from [facility] is calling to speak to the nurse to review medications. She has questions related to her anxiety and respiratory status. She stated it was not urgent but needs to speak to the nurse/provider today. Patient has been identified by name and birthdate. Closing statement: Symptom Call: Thank you for calling [facility], your call is very important. A nurse will call in approximately 2-4 hours during business hours. If this is an emergency, please contact 911. Tiara Jay documented in this encounter [facility] 04-27-2023 Miscellaneous Notes Please review and advise documented in this encounter [facility] 04-27-2023 Telephone encounter Note Patient cancelled 04-27 appointment via [facility] with the following: Reason for Cancellation: Patient: Lack of Transportation LVM to r/s [facility] 04-27-2023 Miscellaneous Notes Patient cancelled 04-27 appointment via [facility] with the following: Reason for Cancellation: Patient: Lack of Transportation LVM to r/s Patient cancelled 04-22 appointment via [facility] stating: Reason for Cancellation: Patient: Schedule Conflict LVM for patient to call back and get r/s documented in this encounter [facility] 04-21-2023 Telephone encounter Note Patient cancelled 04-22 appointment via [email or web address] stating: Reason for Cancellation: Patient: Schedule Conflict LVM for patient to call back and get r/s [facility] 04-21-2023 Miscellaneous Notes Request completed and faxed. Type of letter/form/fax request - Home Health Care Orders Form received from [facility] on 04/17/23 floor and placed on MD desk () for completion. Completed form needs to be faxed to [phone]. Route to [place] when form completed for processing documented in this encounter [facility] 03-11-2023 History of Past i llness Narrative Problem Noted Date Diagnosed Date Resolved Date Chronic pain syndrome 03/11/20232022 Moderate malnutrition 01/22/20232022 COPD (chronic obstructive pu lmonary disease) with acute bronchitis (HCC) 02/02/2021 03/09/2023 Obesity, Class I, BMI 30-34.9 12/07/2018 03/11/2023 documented as of this encounter (statuses as of 04/22/2023) [facility]2023 History of Past illness Narrative* Problem Noted Date Diagnosed Date Resolved Date Chronic pain syndrome 03/11/20232022 Moderate malnutrition 01/22/20232022 COPD (chronic obstructive pu lmonary disease) with acute bronchitis (HCC) 02/02/2021 03/09/2023 Obesity, Class I, BMI 30-34.9 12/07/2018 03/11/2023 documented as of this encounter (statuses as of 04/28/2023) [facility] History of Past illness Narrative* Problem Noted Date Diagnosed Date Resolved Date Chronic pain syndrome 03/11/20232022 Moderate malnutrition 01/22/20232022 COPD (chronic obstructive pu lmonary disease) with acute bronchitis (HCC) 02/02/2021 03/09/2023 Obesity, Class I, BMI 30-34.9 12/07/2018 03/11/2023 documented as of this encounter (statuses as of 05/03/2023) [facility] History of Past illness Narrative* Problem Noted Date Diagnosed Date Resolved Date Chronic pain syndrome 03/11/20232022 Moderate malnutrition 01/22/20232022 COPD (chronic obstructive pu lmonary disease) with acute bronchitis (HCC) 02/02/2021 03/09/2023 Obesity, Class I, BMI 30-34.9 12/07/2018 03/11/2023 documented as of this encounter (statuses as of 05/09/2023) [facility] History of Past illness Narrative* Problem Noted Date Diagnosed Date Resolved Date Chronic pain syndrome 03/11/20232022 Moderate malnutrition 01/22/20232022 COPD (chronic obstructive pu lmonary disease) with acute bronchitis (HCC) 02/02/2021 03/09/2023 Obesity, Class I, BMI 30-34.9 12/07/2018 03/11/2023 documented as of this encounter (statuses as of 05/18/2023) [facility] History of Past illness Narrative* Problem Noted Date Diagnosed Date Resolved Date Chronic pain syndrome 03/11/20232022 Moderate malnutrition 01/22/20232022 COPD (chronic obstructive pu lmonary disease) with acute bronchitis (HCC) 02/02/2021 03/09/2023 Malignant neoplasm of exocervix 11/07/2019 05/20/2023 Obesity, Class I, BMI 30-34.9 12/07/2018 03/11/2023 documented as of this encounter (statuses as of 05/20/2023) [facility] History of Past illness Narrative* Problem Noted Date Diagnosed Date Resolved Date Chronic pain syndrome 03/11/20232022 Moderate malnutrition 01/22/20232022 COPD (chronic obstructive pu lmonary disease) with acute bronchitis (HCC) 02/02/2021 03/09/2023 Malignant neoplasm of exocervix 11/07/2019 05/20/2023 Obesity, Class I, BMI 30-34.9 12/07/2018 03/11/2023 documented as of this encounter (statuses as of 05/21/2023) [facility] History of Past illness Narrative* Problem Noted Date Diagnosed Date Resolved Date Chronic pain syndrome 03/11/20232022 Moderate malnutrition 01/22/20232022 COPD (chronic obstructive pu lmonary disease) with acute bronchitis (HCC) 02/02/2021 03/09/2023 Malignant neoplasm of exocervix 11/07/2019 05/20/2023 Obesity, Class I, BMI 30-34.9 12/07/2018 03/11/2023 documented as of this encounter (statuses as of 05/24/2023) [facility] History of Past illness Narrative* Problem Noted Date Diagnosed Date Resolved Date Chronic pain syndrome 03/11/20232022 Moderate malnutrition 01/22/20232022 COPD (chronic obstructive pu lmonary disease) with acute bronchitis (HCC) 02/02/2021 03/09/2023 Malignant neoplasm of exocervix 11/07/2019 05/20/2023 Obesity, Class I, BMI 30-34.9 12/07/2018 03/11/2023 documented as of this encounter (statuses as of 05/26/2023) [facility] of Past illness Narrative* Problem Noted Date Diagnosed Date Resolved Date Chronic pain syndrome 03/11/20232022 Moderate malnutrition 01/22/20232022 COPD (chronic obstructive pu lmonary disease) with acute bronchitis (HCC) 02/02/2021 03/09/2023 Malignant neoplasm of exocervix 11/07/2019 3 05/20/2023 Obesity, Class I, BMI 30-34.9 12/07/2018 03/11/2023 documented as of this encounter (statuses as of 05/26/2023) [facility] of Past illness Narrative* Problem Noted Date Diagnosed Date Resolved Date Chronic pain syndrome 03/11/20232022 Moderate malnutrition 01/22/20232022 COPD (chronic obstructive pu lmonary disease) with acute bronchitis (HCC) 02/02/2021 03/09/2023 Malignant neoplasm of exocervix 11/07/2019 05/20/2023 Obesity, Class I, BMI 30-34.9 12/07/2018 03/11/2023 documented as of this encounter (statuses as of 05/27/2023) [facility] of Past illness Narrative* Problem Noted Date Diagnosed Date Resolved Date Chronic pain syndrome 03/11/20232022 Moderate malnutrition 01/22/20232022 COPD (chronic obstructive pu lmonary disease) with acute bronchitis (HCC) 02/02/2021 03/09/2023 Malignant neoplasm of exocervix 11/07/2019 3 05/20/2023 Obesity, Class I, BMI 30-34.9 12/07/2018 03/11/2023 documented as of this encounter (statuses as of 05/27/2023) [facility] of Past illness Narrative* Problem Noted Date Diagnosed Date Resolved Date Chronic pain syndrome 03/11/20232022 Moderate malnutrition 01/22/20232022 COPD (chronic obstructive pu lmonary disease) with acute bronchitis (HCC) 02/02/2021 03/09/2023 Malignant neoplasm of exocervix 11/07/2019 3 05/20/2023 Obesity, Class I, BMI 30-34.9 12/07/2018 03/11/2023 documented as of this encounter (statuses as of 06/11/2023) [facility] of Past illness Narrative* Problem Noted Date Diagnosed Date Resolved Date Chronic pain syndrome 03/11/20232022 Moderate malnutrition 01/22/20232022 COPD (chronic obstructive pu lmonary disease) with acute bronchitis (HCC) 02/02/2021 03/09/2023 Malignant neoplasm of exocervix 11/07/2019 05/20/2023 Obesity, Class I, BMI 30-34.9 12/07/2018 03/11/2023 documented as of this encounter (statuses as of 06/24/2023) [facility] of Past illness Narrative* Problem Noted Date Diagnosed Date Resolved Date Chronic pain syndrome 03/11/20232022 Moderate malnutrition 01/22/20232022 COPD (chronic obstructive pu lmonary disease) with acute bronchitis (HCC) 02/02/2021 03/09/2023 Malignant neoplasm of exocervix 11/07/2019 05/20/2023 Obesity, Class I, BMI 30-34.9 12/07/2018 03/11/2023 documented as of this encounter (statuses as of 06/27/2023) [facility] of Past illness Narrative* Problem Noted Date Diagnosed Date Resolved Date Chronic pain syndrome 03/11/20232022 Moderate malnutrition 01/22/20232022 COPD (chronic obstructive pu lmonary disease) with acute bronchitis (HCC) 02/02/2021 03/09/2023 Malignant neoplasm of exocervix 11/07/2019 05/20/2023 Obesity, Class I, BMI 30-34.9 12/07/2018 03/11/2023 documented as of this encounter (statuses as of 06/27/2023) [facility] History of Past illness Narrative* Problem Noted Date Diagnosed Date Resolved Date Chronic pain syndrome 03/11/20232022 Moderate malnutrition 01/22/20232022 COPD (chronic obstructive pu lmonary disease) with acute bronchitis (HCC) 02/02/2021 03/09/2023 Malignant neoplasm of exocervix 11/07/2019 3 05/20/2023 Obesity, Class I, BMI 30-34.9 12/07/2018 03/11/2023 documented as of this encounter (statuses as of 06/30/2023) [facility] of Past illness Narrative* Problem Noted Date Diagnosed Date Resolved Date Chronic pain syndrome 03/11/20232022 Moderate malnutrition 01/22/20232022 COPD (chronic obstructive pu lmonary disease) with acute bronchitis (HCC) 02/02/2021 03/09/2023 Malignant neoplasm of exocervix 11/07/2019 05/20/2023 Obesity, Class I, BMI 30-34.9 12/07/2018 03/11/2023 documented as of this encounter (statuses as of 07/05/2023) [facility] of Past illness Narrative* Problem Noted Date Diagnosed Date Resolved Date Chronic pain syndrome 03/11/20232022 Moderate malnutrition 01/22/20232022 COPD (chronic obstructive pu lmonary disease) with acute bronchitis (HCC) 02/02/2021 03/09/2023 Malignant neoplasm of exocervix 11/07/2019 05/20/2023 Obesity, Class I, BMI 30-34.9 12/07/2018 03/11/2023 documented as of this encounter (statuses as of 07/05/2023) [facility] History of Past illness Narrative* Problem Noted Date Diagnosed Date Resolved Date Chronic pain syndrome 03/11/20232022 Moderate malnutrition 01/22/20232022 COPD (chronic obstructive pu lmonary disease) with acute bronchitis (HCC) 02/02/2021 03/09/2023 Malignant neoplasm of exocervix 11/07/2019 05/20/2023 Obesity, Class I, BMI 30-34.9 12/07/2018 03/11/2023 documented as of this encounter (statuses as of 07/08/2023) [facility] Miscellaneous Notes* Telephone Encounter - Toporowski, Maria Alejandra, MA - 03/08/2023 8:34 AM EST Pharmacy verified in [facility] Patient has been identified by name [...] Maria Alejandra Reno MA [facility] M[facility]ellaneous Notes* Care Coordination - Unknown Case Management - 02/18/2023 4:02 PM EST Patient Choice Patient Name: GONZALO DELUCA Date of : 1955 All Providers Sent Referral Name: [facility] Phone: [phone] Address: [address] [place] [address] * Care Coordination - SATURNINO Garcia - 02/18/2023 2:19 PM EST S/W, follow up Patient discharged to [facility]. Transport set via [facility] at 430p. utility lineman provided with report number. I did visit patient in room to notify of transport at 430p. Patient noted she will inform her daughter. * Care Coordination - Nidia Barahona - 02/18/2023 1:34 PM EST Discharge med list transmitted to [facility] via [facility] per T[facility] request. [id number] Facility is aware. * Care Coordination - SATURNINO Garcia - 02/16/2023 1:48 PM EST S/W, transport Transport sheet placed in patient paper chart for [facility]. * Care Coordination - Jordaan Lowe RN - 02/16/2023 11:18 AM EST Images from the original note were not included. Care Management Progress Note Remains in HICU due to lumbar fracture. Bone scan planned for 02/17. Ortho following. [facility] able to accept pt. SHOE TRIMMER tasked to initiate insurance auth. Await insurance approval. Insurance approval received. Attending, ortho, RN & STREET LIGHT SERVICER SUPERVISOR notified. Pt to have bone scan tomorrowas [...] 02/15/2023 3:09 PM EST Referral placed to [facility]. Await review and response regarding ability to accept. TCC notified. * Care Coordination - Ping Lazo RN - 02/15/2023 2:44 PM EST Care Managment Initial Assessment Date: 02/15/2023 Patient Name: Gonzalo Deluca : 1955 Patient Information Source of Information: Patient Cognition/Language: WFL - Within Functional Limits Permission given to speak with patient sales representative printing supplies/caregiver as indicated: Yes (Karishma Deluca dtr [phone]) Confirmation of Payer with patient/family: Yes Payer [...] SNF Discharge Planning Actions: Continue to follow, [facility] Facility referral indicated [place]: [place] discussed, Choice list provided (emailed to [email or web address]) Patient's Choice Rights and [employer] and Collaborative Relationships Disclosed as Indicated for Post-Acute Care: Yes Interdisciplinary Team Engagement: PT/OT Social Work Referral for: Additional Information: Patient admitted to [facility] for treatment of of Lumbar compression fracture. PT/OT recommends SNF. Spoke with patient over the phone. Explained role. Lives w/ daughter in two story home. Independentwith adls. Daughter and Son drives. +PCP, +RX cov, +DME, home oxygen. Discussed SNF. Emailed list to [email or web address]. She did inform me she was at [facility] and would be agreeable to go back there. SHOE TRIMMER tasked to make referral to [facility]. Did explained will need to confirm bedavailability and obtain insurance authorization. She demonstrates understanding. DCP: SNF, referral to [facility]. Other choices pending. Ping Lazo RN * Home Care - Deanna Romero LPN - 02/14/2023 8:50 AM EST Patient is currently active with [facility]. The patients current certification period will on 03/28/23. The patient is currently receiving PT services through the agency. Anchor Operator to continue to follow. documented in this [facility]12-01-2023 Note* Care Coordination - Unknown Case Management - 02/18/2023 4:02 PM EST Patient Choice Patient Name: GONZALO DELUCA Date of : 1955 All Providers Sent Referral Name: [facility] Phone: [phone] Address: [address] [place] [id number] [place] [id number] Note* Care Coordination - Unknown Case Management - 02/18/2023 4:02 PM EST Patient Choice Patient Name: GONZALO DELUCA Date of : 1955 All Providers Sent Referral Name: [facility] Phone: [phone] Address: [address] [place] [id number] [place] [id number] Note* Care Coordination - SATURNINO Garcia - 02/18/2023 2:19 PM EST S/W, follow up Patient discharged to [facility]. Transport set via [facility] at 430p. utility lineman provided with report number. I did visit patient in room to notify of transport at 430p. Patient noted she will inform her daughter. [place] [id number] Note* Care Coordination - SATURNINO Garcia - 02/18/2023 2:19 PM EST S/W, follow up Patient discharged to [facility]. Transport set via [facility] at 430p. utility lineman provided with report number. I did visit patient in room to notify of transport at 430p. Patient noted she will inform her daughter. [facility] [id number] Note* Care Coordination - Nidia Barahona - 02/18/2023 1:34 PM EST Discharge med list transmitted to [facility] via Careport per TCC request. 7000 was entered into [employer] for the [facility] is aware. [place] [id number] Note* Care Coordination - Nidia Barahona - 02/18/2023 1:34 PM EST Discharge med list transmitted to [facility] via CareCover per TCC request. 7000 was entered into [employer] for the [facility] is aware. [facility] [id number] Hospital Discharge instructions* Discharge Instr - Activity* [...] Information Primary Emergency Contact: Nacho Delucai Address: [address] [place] [address] [place] [address] [facility] [place] Relation: Daughter Secondary Emergency Contact: Jace [...] (135 lb) Mental Status: {SHAMA Patient Mental Status:05545} IV Access: SHAMA IV Access: None Nursing Mobility/ADLs: Walking Minimal assistance Transfer Minimal assistance Bathing Minimal assistance Dressing Minimal assistance Toileting Minimal assistance Feeding Independent Correctional Supply Supervisor Independent Med Delivery no Wound Care Documentation [...] Assessment Score: @READMISSIONRISKDETAILS@ Discharging to Facility/ Agency [facility] Address: [address] [place] [address] Dialysis Facility (if applicable) Name: Address: Dialysis Schedule: Phone: Fax: Clinical Quality Assurance Associate/Student Assistance Counselor signature: ICIAN SECTION Prognosis: fair Condition at Discharge: stable Rehab Potential (if transferring to Rehab): good Recommended Labs or Other Treatments After Discharge: cbc and Bmp in 3 days Physician Certification: I certify the above information and transfer of Gonzalo Deluca is necessary for the continuing treatment of the diagnosis listed and that she requires long term facility for less than 30 days. Update Admission H&P: No change in H&P PHYSICIAN SIGNATURE: * Additional Instructions* Earlene Echavarria MD - 02/18/2023 1:11 PM EST BONe scan with compression fracture, and brace given, also shows rib fractures. Follow up with Dr. Frank CBC and BMP in 3 days documented in this [facility]12-01-2023 History of Present illness Narrative* Yesenia Salas RCP - 02/18/2023 11:45 AM EST [facility] Respiratory Care Department Progress Note As part [...] from the original note were not included. [phone]: Please page me ([phone]) for patient care issues. [phone]: Please page [facility] Hospitalist for any issues. Subjective: Admit Date: 02/13/2023 PCP: HERMINIA CASE MD Room#: 232-08/232-08 Norma Deluca is a 67 y.o. female who presents with Lumbar compression fracture, closed, initial encounter ([facility]) Interval History: Claims that back pain is [...] was a tentative plan of discharge to long term facility today but discharge was held because [...] Primary Emergency Contact: Karishma Deluca Address: [address] [place] [address] [place] [address] [facility] [place] Relation: Daughter Secondary Emergency Contact: Jace Deluca [place] Relation: Son Advance Directive: Full Code Discharge planning: TBD Earlene Echavarria MD Division of Hospitalist Medicine Inpatient Medical Services/[facility] * Oseas Lima, PT - 02/17/2023 11:39 AM EST Images from the original note were not included. PHYSICAL THERAPY [facility] Treatment Note Name/MRN: Gonzalo Deluca ([id number]) Date of : 1955 Age: 67 y.o. [...] other than deg changes. LSO ordered from [facility] Can be discharged when medically ready. [...] original note were not included. OCCUPATIONAL THERAPY [facility] Treatment Note Name/MRN: Gonzalo Deluca ([id number]) Date of : 1955 Age: 67 y.o. [...] from the original note were not included. [phone]: Please page mt ([phone]) for patient care issues. [phone]: Please page [facility] Hospitalist for any issues. Subjective: Admit Date: 02/13/2023 PCP: HERMINIA CASE MD Room#: 232-08/232-08 Norma Deluca is a 67 y.o. female who presents with Lumbar compression fracture, closed, initial encounter ([facility]) Interval History: Claims that back pain is [...] Contact Information Primary Emergency Contact: RaudelsumeetbenjiKarishma Address: [address] [place] [address] [address] [place], [facility] [place] Relation: Daughter Secondary Emergency Contact: Jace Deluca [place] Relation: Son Advance Directive: Full Code Discharge planning: TBD Earlene Echavarria MD Division of Hospitalist Medicine Inpatient Medical Services/[facility] * Betsey Gresham MD - 02/16/2023 7:51 [...] from the original note were not included. [phone]: Please page mt ([phone]) for patient care issues. [phone]: Please page [facility] Hospitalist for any issues. Subjective: Admit Date: 02/13/2023 PCP: HERMINIA CASE MD Room#: 232-08/232-08 Norma Deluca is a 67 y.o. female who presents with Lumbar compression fracture, closed, initial encounter ([facility]) Interval History: Claims that back pain is [...] Primary Emergency Contact: Karishma Deluca Address: [address] [place] [address] [place] [address] [facility] [place] Relation: Daughter Secondary Emergency Contact: Jace [place] Relation: Son Advance Directive: Full Code Discharge planning: TBD Earlene Echavarria MD Division of Hospitalist Medicine Inpatient Medical Services/[facility] * Marian Mendosa PT - 02/15/2023 11:13 AM EST Images from the original note were not included. PHYSICAL THERAPY [facility] Treatment Note Name/MRN: Gonzalo Deluca ([id number]) Date of : 1955 Age: 67 y.o. [...] from the original note were not included. [phone]: Please page me ([phone]) for patient care issues. [phone]: Please page [facility] Hospitalist for any issues. Subjective: Admit Date: 02/13/2023 PCP: HERMINIA CASE MD Room#: 232-08/232-08 Norma Deluca is a 67 y.o. female who presents with Lumbar compression fracture, closed, initial encounter ([facility]) Interval History: No overnight issues. She is [...] since patient refuses MRI Physical therapy recommending long term facility and possible discharge planning to SNF [...] Contact Information Primary Emergency Contact: YosiKarishma Address: [address] [place] [address] [place] [address] [facility] [place] Relation: Daughter Secondary Emergency Contact: Jace [place]uca [place] Relation: Son Advance Directive: Full Code Discharge planning: TBD Earlene Echavarria MD Division of Hospitalist Medicine Inpatient Medical Services/[facility] * Catalina Rojo OT - 02/14/2023 10:11 AM EST Images from the original note were not included. OCCUPATIONAL THERAPY [facility] Initial Evaluation Name/MRN: Gonzalo Deluca ([id number]) Evaluation Date: 02/14/2023 Date of : 1955 Admission Date: 02/13/2023 6:59 PM Age: 67 y.o. Room[facility]Bed: [facility] A Discharge Recommendation: SNF and Continue to [...] test Allergic rhinitis Arthritis Asthma Bronchitis Cancer ([facility]) ([facility]) skin Cervical cancer ([facility]) ([facility]) Chest pain COPD (chronic obstructive pulmonary disease) ([facility]) USE OXYGEN 3 L AT NIGHT DDD (degenerative disc disease), cervical Defect, retina, with detachment right DJD (degenerative joint disease), lumbar Emphysema lung ([facility]) Former smoker Hematuria SCHEDULED FOR THE PROCEDURE /SURGERY ON 02/11/2017 Hypokalemia Lung nodules Osteoporosis Palpitations Pneumonia Recurrent major depression ([facility]) Sciatica Thoracic compression fracture ([facility]) Vitamin D deficiency Past Surgical History: Past [...] Noted Lumbar compression fracture, closed, initial encounter ([facility]) 02/13/2023 Nondisplaced fracture of neck of left femur ([facility]) 11/06/2022 Other specified complication of vascular prosthetic devices, implants and grafts, initial encounter([facility]) 08/06/2021 Acute exacerbation of chronic obstructive pulmonary disease ([facility]) 04/12/2018 Poor venous access 12/19/2019 H/O: CVA (cerebrovascular accident) 12/14/2019 Malignant neoplasm of exocervix ([facility]) 11/07/2019 S/P hysterectomy 11/07/2019 PNA (pneumonia) 08/02/2019 Leukocytosis 04/13/2018 Moderate malnutrition ([facility]) ([facility]) 04/13/2018 Shortness of breath 04/13/2018 DDD (degenerative [...] Responsibilities: Independent Receives Help From: Family Active Supervisor Metal Cans: No Prior Level of Function ADL Assistance: [...] of Care supervision is transferred to a [facility] Therapy Services Occupational Therapist. Goals and/or treatment plan was established in collaboration with patient/family/other representatives. I * Jennifer Esparza, PT - 02/14/2023 8:36 AM EST Images from the original note were not included. PHYSICAL THERAPY [facility] Initial Evaluation Name/MRN: Gonzalo Deluca ([id number]) Evaluation Date: 02/14/2023 Date of : 1955 [...] Allergic rhinitis Arthritis Asthma Bronchitis Cancer (CMS/HCC) ([facility]) skin Cervical cancer (CMS/HCC) ([facility]) Chest pain COPD (chronic obstructive pulmonary disease) ([facility]) USE OXYGEN 3 L AT NIGHT DDD (degenerative disc disease), cervical Defect, retina, with detachment right DJD (degenerative joint disease), lumbar Emphysema lung ([facility]) Former smoker Hematuria SCHEDULED FOR THE PROCEDURE /SURGERY ON 02/11/2017 Hypokalemia Lung nodules Osteoporosis Palpitations Pneumonia Recurrent major depression ([facility]) Sciatica Thoracic compression fracture ([facility]) Vitamin D deficiency Past Surgical History: Past [...] Noted Lumbar compression fracture, closed, initial encounter ([facility]) 02/13/2023 Nondisplaced fracture of neck of left femur ([facility]) 11/06/2022 Other specified complication of vascular prosthetic devices, implants and grafts, initial encounter([facility]) 08/06/2021 Acute exacerbation of chronic obstructive pulmonary disease ([facility]) 04/12/2018 Poor venous access 12/19/2019 H/O: CVA (cerebrovascular accident) 12/14/2019 Malignant neoplasm of exocervix ([facility]) 11/07/2019 S/P hysterectomy 11/07/2019 PNA (pneumonia) 08/02/2019 Leukocytosis 04/13/2018 Moderate malnutrition (CMS/HCC) ([facility]) 04/13/2018 Shortness of breath 04/13/2018 DDD (degenerative disc disease), cervical 04/12/2018 Recurrent major depression ([facility]) 04/12/2018 Chronic back pain 04/10/2017 COPD (chronic obstructive pulmonary disease) ([facility]) 04/10/2017 Pulmonary nodule 04/10/2017 Sciatica 04/10/2017 Supplemental [...] Responsibilities: Independent Receives Help From: Family Active Supervisor Metal Cans: No Prior Level of Function ADL Assistance: [...] of Care supervision is transferred to a [facility] Services Physical Therapist. Goals and/or treatment plan was established in collaboration with patient/family/other representatives. documented in this [facility]11-30-2023 Nurse Note* ARMIN DE OLIVEIRA - 02/17/2023 6:09 PM EST Order for brace faxed to [employer] along with face sheet by Secretary Diaz [place] [id number] Nurse Note* ARMIN DE OLIVEIRA - 02/17/2023 6:09 PM EST Order for brace faxed to [employer] along with face sheet by Secretary Diaz documented in this [facility]11-29-2023 Note* Care Coordination - SATURNINO Garcia - 02/16/2023 1:48 PM EST S/W, transport Transport sheet placed in patient paper chart for [facility] SNF. [id number] Note* Care Coordination - SATURNINO Garcia - 02/16/2023 1:48 PM EST S/W, transport Transport sheet placed in patient paper chart for [facility] SNF. [id number] Note* Care Coordination - Jordana Lowe RN - 02/16/2023 11:18 AM EST Images from the original note were not included. Care Management Progress Note Remains in HICU due to lumbar fracture. Bone scan planned for 02/17. Ortho following. [facility] able to accept pt. [facility] tasked to initiate insurance auth. Await insurance approval. Insurance approval received. Attending, faustina, RN & STREET LIGHT SERVICER SUPERVISOR notified. Pt to have bone scan tomorrowas [...] Stay (Days): 3 GMLOS: No GMLOS Documented [facility]11-29-2023 Note* Care Coordination - Jordana Lowe RN - 02/16/2023 11:18 AM EST Images from the original note were not included. Care Management Progress Note Remains in HICU due to lumbar fracture. Bone scan planned for 02/17. Ortho following. [facility] able to accept pt. [facility] tasked to initiate insurance auth. Await insurance approval. Insurance approval received. Attending, faustina, RN & STREET LIGHT SERVICER SUPERVISOR notified. Pt to have bone scan tomorrowas [...] Stay (Days): 3 GMLOS: No GMLOS Documented [place] [address]-28-2023 Note* Care Coordination - Nidia Barahona - 02/15/2023 3:09 PM EST Referral placed to [facility] via Careport per TCC request. Await review and response regarding ability to accept. TCC notified. [facility]11-28-2023 Note* Care Coordination - Nidia Barahona - 02/15/2023 3:09 PM EST Referral placed to [facility] via Careport per TCC request. Await review and response regarding ability to accept. TCC notified. [address]28-2023 Note* Care Coordination - Ping Lazo RN - 02/15/2023 2:44 PM EST Care Managment Initial Assessment Date: 02/15/2023 Patient Name: Gonzalo Deluca : 1955 Patient Information Source of Information: Patient Cognition/Language: WFL - Within Functional Limits Permission given to speak with patient sales representative printing supplies/caregiver as indicated: Yes (Karishma Deluca dtr [phone]) Confirmation of Payer with patient/family: Yes Payer Name: [facility] Medicare [place]: No Confirmation of Primary Care Physician: Confirmed [...] SNF Discharge Planning Actions: Continue to follow, [facility] Facility referral indicated [place]: [place] discussed, Choice list provided (emailed to [email or web address]) Patient's Choice Rights and [employer] and Collaborative Relationships Disclosed as Indicated for Post-Acute Care: Yes Interdisciplinary Team Engagement: PT/OT Social Work Referral for: Additional Information: Patient admitted to [facility] for treatment of of Lumbar compression fracture. PT/OT recommends SNF. Spoke with patient over the phone. Explained role. Lives w/ daughter in two story home. Independentwith adls. Daughter and Son drives. +PCP, +RX cov, +DME, home oxygen. Discussed SNF. Emailed list to [email or web address]. She did inform me she was at [facility] and would be agreeable to go back there. SHOE TRIMMER tasked to make referral to [facility]. Did explained will need to confirm bedavailability and obtain insurance authorization. She demonstrates understanding. DCP: SNF, referral to [facility]. Other choices pending. Ping Lazo RN [facility] [id number] Note* Care Coordination - Ping Lazo RN - 02/15/2023 2:44 PM EST Care Managment Initial Assessment Date: 02/15/2023 Patient Name: Gonzalo Deluca : 1955 Patient Information Source of Information: Patient Cognition/Language: WFL - Within Functional Limits Permission given to speak with patient sales representative printing supplies/caregiver as indicated: Yes (Karishma Deluca dtr [phone]) Confirmation of Payer with patient/family: Yes Payer Name: [facility] Medicare : No Confirmation of Primary Care [...] SNF Discharge Planning Actions: Continue to follow, [facility] Facility referral indicated [place] of choice: [place] of choice discussed, Choice list provided (emailed to [email or web address]) Patient's Choice Rights and [employer] and Collaborative Relationships Disclosed as Indicated for Post-Acute Care: Yes Interdisciplinary Team Engagement: PT/OT Social Work Referral for: Additional Information: Patient admitted to [facility] for treatment of of Lumbar compression fracture. PT/OT recommends SNF. Spoke with patient over the phone. Explained role. Lives w/ daughter in two story home. Independentwith adls. Daughter and Son drives. +PCP, +RX cov, +DME, home oxygen. Discussed SNF. Emailed list to [email or web address]. She did inform me she was at [facility] and would be agreeable to go back there. SHOE TRIMMER tasked to make referral to [facility]. Did explained will need to confirm bedavailability and obtain insurance authorization. She demonstrates understanding. DCP: SNF, referral to [facility]. Other choices pending. Ping Lazo RN [id number] Emergency department Note* Joaquina Guevara RN - 02/14/2023 9:20 AM EST Report called to Jameson WHITEHEAD at this time. Joaquina Guevara RN 02/14/23919 [id number] Emergency department Note* Joaquina Guevara RN - [...] Chest pain COPD (chronic obstructive pulmonary disease) ([facility]) USE OXYGEN 3 L AT NIGHT DDD (degenerative disc disease), cervical Defect, retina, with detachment right DJD (degenerative joint disease), lumbar Emphysema lung (HCC) Former smoker Hematuria SCHEDULED FOR THE PROCEDURE /SURGERY ON 02/11/2017 Hypokalemia Lung nodules Osteoporosis Palpitations Pneumonia Recurrent major depression (HCC) Sciatica Thoracic compression fracture ([facility]) Vitamin D deficiency SURGICAL HISTORY Past Surgical [...] disposition. ED Course as of 02/17/23 08 [place] Feb 13, [id number] XR shoulder 2+ views [...] are requesting placement back in rehab versus long term facility. They states they are concerned about [...] 1. Lumbar compression fracture, closed, initial encounter ([facility]) 2. Fall, initial encounter 3. Multiple falls [...] of arrival: Comments: Jean Harvey RN 02/13/23 133 * Nancy Salas RN - 02/13/2023 6:59 PM EST Bed: 16 Expected date: Expected time: Means of arrival: Comments: Room 2 Nancy Salas RN 02/13/232203 documented in this [facility]11-27-2023 Note* Home Care - Deanna Romero LPN - 02/14/2023 8:50 AM EST Patient is currently active with [facility]. The patients current certification period will on 03/28/23. The patient is currently receiving PT services through the agency. Anchor Operator to continue to follow. [facility] [id number] Note* Home Care - Deanna Romero LPN - 02/14/2023 8:50 AM EST Patient is currently active with [facility]. The patients current certification period will on 03/28/23. The patient is currently receiving PT services through the agency. Anchor Operator to continue to follow. [facility] [id number] Emergency department Note* Joaquina Guevara RN - 02/14/2023 8:27 AM EST Attempted Nurse to nurse via telephone at this time, Peter states they will call back. Joaquina Guevara RN 02/14/23 0828 [facility] [id number] Consult note* Betsey Gresham MD - 02/14/2023 [...] Allergic rhinitis Arthritis Asthma Bronchitis Cancer (CMS/HCC) ([facility]) skin Cervical cancer (CMS/HCC) ([facility]) Chest pain COPD (chronic obstructive pulmonary disease) ([facility]) USE OXYGEN 3 L AT NIGHT DDD (degenerative disc disease), cervical Defect, retina, with detachment right DJD (degenerative joint disease), lumbar Emphysema lung ([facility]) Former smoker Hematuria SCHEDULED FOR THE PROCEDURE /SURGERY ON 02/11/2017 Hypokalemia Lung nodules Osteoporosis Palpitations Pneumonia Recurrent major depression ([facility]) Sciatica Thoracic compression fracture ([facility]) Vitamin D deficiency Past Surgical History Past [...] the consult we will follow with you. [facility]11-27-2023 Consult note* Betsey Gresham MD - 02/14/2023 7:49 [facility] consult to orthopaedic surgery-- [...] Allergic rhinitis Arthritis Asthma Bronchitis Cancer (CMS/HCC) ([facility]) skin Cervical cancer (CMS/HCC) ([facility]) Chest pain COPD (chronic obstructive pulmonary disease) ([facility]) USE OXYGEN 3 L AT NIGHT DDD (degenerative disc disease), cervical Defect, retina, with detachment right DJD (degenerative joint disease), lumbar Emphysema lung (HCC) Former smoker Hematuria SCHEDULED FOR THE PROCEDURE /SURGERY ON 02/11/2017 Hypokalemia Lung nodules Osteoporosis Palpitations Pneumonia Recurrent major depression ([facility]) Sciatica Thoracic compression fracture ([facility]) Vitamin D deficiency Past Surgical History Past [...] will follow with you. documented in this [facility]11-26-2023 History and physical note* Lauren Serna MD - 02/13/2023 11:12 PM EST Images from the original note were not included. History and Physical [facility] Gonzalo Deluca : 1955 AGE [...] Allergic rhinitis Arthritis Asthma Bronchitis Cancer (CMS/HCC) ([facility]) skin Cervical cancer (CMS/HCC) ([facility]) Chest pain COPD (chronic obstructive pulmonary disease) ([facility]) USE OXYGEN 3 L AT NIGHT DDD (degenerative disc disease), cervical Defect, retina, with detachment right DJD (degenerative joint disease), lumbar Emphysema lung ([facility]) Former smoker Hematuria SCHEDULED FOR THE PROCEDURE /SURGERY ON 02/11/2017 Hypokalemia Lung nodules Osteoporosis Palpitations Pneumonia Recurrent major depression ([facility]) Sciatica Thoracic compression fracture ([facility]) Vitamin D deficiency She is on 3 [...] SpO2 98% BMI 22.47 kg/m Pulse Ox: [id number]: 98 % Min: 98 % Max: 98 [...] QT Interval 395 QTC Interval 473 P Astoria 69 QRS Astoria -35 T Wave Astoria -12 ND Interval 152 Impression Sinus rhythm Inferior infarct, [...] x-ray left shoulder is negative for fracture [facility] orthopedics has seen her in the past seeing her analytical lab analyst for the For now I will continue [...] to due risk bleed/procedure 02/13/2023 Gonzalo Deluca [id number] Any scheduled follow up appointments Future Appointments Date Time Provider Department Center 03/09/2023 11:15 AM Freddy Person MD [facility] None 04/22/2023 1:00 PM Sally Rocha APRN - [facility] None Extended Emergency Contact Information Primary Emergency Contact: Karishma Deluca Address: [address] [place] [address] Mobile Relation: Daughter Secondary Emergency Contact: YosiJace Mobile Relation: Son Portions of this note may be electronically transcribed. Please forward a copy of this H&P to the primary care physician. Zmanda Phone: [phone]) 518-916511-26-2023 History and physical note* Lauren Serna MD - 02/13/2023 11:12 PM EST Images from the original note were not included. History and Physical [facility] Gonzalo Deluca : 1955 AGE [...] Chest pain COPD (chronic obstructive pulmonary disease) ([facility]) USE OXYGEN 3 L AT NIGHT DDD (degenerative disc disease), cervical Defect, retina, with detachment right DJD (degenerative joint disease), lumbar Emphysema lung ([facility]) Former smoker Hematuria SCHEDULED FOR THE PROCEDURE /SURGERY ON 02/11/2017 Hypokalemia Lung nodules Osteoporosis Palpitations Pneumonia Recurrent major depression ([facility]) Sciatica Thoracic compression fracture ([facility]) Vitamin D deficiency She is on 3 liters of oxygen all the time Past Surgical History: Procedure Laterality Date CYSTOSCOPY 01/12/2017 OFFICE PROCEDURE CYSTOSCOPY 02/11/2017 C&P bladder biopsy EYE SURGERY detached retina 1994 HYSTERECTOMY 11/06/2019 ABDOMINAL RADICAL HYSTERECTOMY WITH BSO AND PELVIC LYMPH; DR. ZIYAD MENENDEZ [facility] OTHER SURGICAL HISTORY Left [...] SpO2 98% BMI 22.47 kg/m Pulse Ox: [id number]: 98 % Min: 98 % Max: 98 [...] QT Interval 395 QTC Interval 473 P Astoria 69 QRS Astoria -35 T Wave Astoria -12 ND Interval 152 Impression Sinus rhythm Inferior infarct, [...] x-ray left shoulder is negative for fracture [facility] orthopedics has seen her in the past seeing her analytical lab analyst for the For now I will continue [...] to due risk bleed/procedure 02/13/2023 Gonzalo Deluca [id number] Any scheduled follow up appointments Future Appointments Date Time Provider Department Center 03/09/2023 11:15 AM Freddy Person MD [facility] None 04/22/2023 1:00 PM Sally Rocha APRN - CARD PLACER [facility] None Extended Emergency Contact Information Primary Emergency Contact: Karishma Deluca Address: [address] [place] [address] [place] [address] [place] Mobile Relation: Daughter Secondary Emergency Contact: Jace Deluca Mobile Relation: Son Portions of this note may be electronically transcribed. Please forward a copy of this H&P to the primary care physician. documented in this [facility]11-26-2023 Emergency department Note* Anahi Harvey RN - 02/13/2023 6:59 PM EST Bed: 02 Expected date: Expected time: Means of arrival: Comments: Jean Harvey RN 02/13/23 [address] [place] [id number] Emergency department Note* Nancy Salas RN - 02/13/2023 6:59 PM EST Bed: 16 Expected date: Expected time: Means of arrival: Comments: Room 2 Nancy Salas RN 02/13/232[address] [place] [id number] Emergency department Triage note* VERA Harper - 02/13/2023 6:59 PM EST Complaint of fall today injuring lower back and left shoulder. [address] [id number] Physician Emergency department Note* Lorenzo Orozco MD [...] test Allergic rhinitis Arthritis Asthma Bronchitis Cancer ([facility]) ([facility]) skin Cervical cancer ([facility]) ([facility]) Chest pain COPD (chronic obstructive pulmonary disease) ([facility]) USE OXYGEN 3 L AT NIGHT DDD (degenerative disc disease), cervical Defect, retina, with detachment right DJD (degenerative joint disease), lumbar Emphysema lung ([facility]) Former smoker Hematuria SCHEDULED FOR THE PROCEDURE /SURGERY ON 02/11/2017 Hypokalemia Lung nodules Osteoporosis Palpitations Pneumonia Recurrent major depression ([facility]) Sciatica Thoracic compression fracture ([facility]) Vitamin D deficiency SURGICAL HISTORY Past Surgical [...] are requesting placement back in rehab versus long term facility. They states they are concerned about [...] 1. Lumbar compression fracture, closed, initial encounter ([facility]) 2. Fall, initial encounter 3. Multiple falls [...] Medicine Provider Lorenzo Orozco MD 02/17/23 0849 [id number] Miscellaneous Notes* Telephone Encounter - Whit Shay LPN - 02/08/2023 9:57 AM EST Request completed and faxed. * Telephone Encounter - Herminia Case MD - 02/08/2023 9:48 AM EST Done. * Telephone Encounter - Whit Shay LPN - 02/07/2023 2:59 PM EST Type of letter/form/fax request - Home Health Care Orders Plan of Care Certification Period- 01/28/23 to 03/28/23 Form received from [facility] on 02/04/23 floor and placed on desk () for completion. Completed form needs to be faxed to [phone]. Route to [place] when form completed for processing documented in this encounterAs[facility]11-20-2023 Miscellaneous Notes* Telephone Encounter - [...] [place], [facility] documented in this encounterAshtabula [facility] Center11-14-2023 History of Present illness Narrative* Agustina Romero MA - 02/01/2023 11:01 AM EST POPULATION HEALTH NAVIGATION OUTREACH Action/FYI Called and left a message to call [phone], to discuss health maintenance items that are due. Sent My Chart message. Patient Identified by Name and : NO Outreach Outcome/Action Unable to reach patient: Left message [employer] message sent Did you use a PCP flex slot to schedule this appointment? N/A Reason for Outreach Care Gap or Scheduling/Wellness visits Payer: Payor: [facility] MEDICARE / Plan: [facility] DUAL COMPLETE HMO POS SNP / Product [...] 01, 2023 11:02 AM documented in this encounterAshtabula [facility] Center11-14-2023 Miscellaneous Notes* Telephone Encounter - Whit Shay LPN - 02/01/2023 9:07 AM EST Request completed and faxed. * Telephone Encounter - Whit Shay LPN - 01/31/2023 3:36 PM EST Type of letter/form/fax request - Home Health Care Orders Form received from [facility] on 01/28/23 floor and placed on MD desk () for completion. Completed form needs to be faxed to [phone]. Route to [place] when form completed for processing documented in this encounterAshtabula County [facility] Center11-09-2023 History of Present illness Narrative* Jo Chen MA - 01/27/2023 12:21 PM EST POPULATION HEALTH NAVIGATION OUTREACH Action/FYI Unable to leave Nippot message sent Mammogram Screening Never done Colorectal Cancer Screening Never done Patient Identified by Name and : NO Outreach Outcome/Action Unable to reach patient: Phone number not valid / voicemail full [employer] message sent Did you use a PCP flex slot to schedule this appointment? N/A Reason for Outreach Care Gap or Scheduling/Wellness visits Payer: Payor: [facility] MEDICARE / Plan: [facility] DUAL COMPLETE HMO POS SNP / Product [...] 27, 2023 12:21 PM documented in this encounterAshtabula County [facility] Center11-06-2023 Miscellaneous Notes* Telephone Encounter - Whit Shay LPN - 01/24/2023 3:12 PM EST Request completed and faxed. * Telephone Encounter - Herminia Case MD - 01/24/2023 3:06 PM EST Done. * Telephone Encounter - Whit Shay LPN - 01/24/2023 2:42 PM EST Type of letter/form/fax request - Home Health Care Orders Form received from [facility] on 01/21/23 floor and placed on MD desk () for completion. Completed form needs to be faxed to [phone]. Route to [place] when form completed for processing documented in this encounterAshtabula [facility] Medical Center11-03-2023 Miscellaneous Notes* Telephone Encounter - Rayo Roman Ma - 01/21/2023 1:45 PM EDT Type of letter/form/fax request - Home Health Care Orders Form received from [facility] on 01/21/23 floor and placed on MD desk () for completion. Completed form needs to be faxed to [phone]. Route to [place] when form completed for processing documented in this encounterAshtabula County Medical Center10-30-2023 Miscellaneous Notes* Telephone Encounter - Whit Shay LPN - 01/17/2023 6:06 PM EDT Request completed and faxed. * Telephone Encounter - Whit Shay LPN - 01/17/2023 10:35 AM EDT Type of letter/form/fax request - Home Health Care Orders Form received from [facility] on 01/15/23 floor and placed on desk () for completion. Completed form needs to be faxed to [phone]. Route to [place] when form completed for processing documented in this encounterAshtabula County Medical Center10-27-2023 Instructions* Patient Instructions* Herminia Case MD - [...] continue 60 mg duloxetine. documented in this encounterAshtabula County Medical Center10-27-2023 History of Present illness Narrative* Herminia Case [...] Vaccine(1) due on 2022 documented in this encounterAshtabula County Medical Center10-20-2023 Miscellaneous Notes* Telephone Encounter - Melva Juárez PA-C - 01/07/2023 3:21 PM EDT Noted. Melva Juárez PA-C * Telephone Encounter - Teressa Macario - 01/07/2023 1:21 PM EDT Lake with [facility] calling to update that patient cancelled her appointment today becauseshe is not feeling well. Any questions, please call Lake @ [phone] documented in this encounterAshtabula County Medical Center10-18-2023 Miscellaneous Notes* Telephone Encounter - Melva Juárez PA-C - 01/05/2023 5:12 PM EDT Noted. Melva Juárez PA-C * Telephone Encounter - Rayo Roman Ma - 01/05/2023 4:32 PM EDT JANNIE * Telephone Encounter - Teressa Macario - 01/05/2023 12:17 PM EDT Dianne from [facility] calling today to update that patient missed appointment today because she does not feel well. Patient is asking to hold off therapy until Tuesday. documented in this encounterAshtabula County Medical Center10-12-2023 Miscellaneous Notes* Telephone Encounter - Whit Shay LPN - 12/30/2022 11:28 AM EDT Request completed and faxed. * Telephone Encounter - Herminia Csae MD - 12/30/2022 11:18 AM EDT Done. * Telephone Encounter - Whit Shay LPN - 12/30/2022 9:28 AM EDT Type of letter/form/fax request - Home Health Care Orders Form received from [facility] on 12/29/22 floor and placed on MD desk () for completion. Completed form needs to be faxed to [phone]. Route to [place] when form completed for processing documented in this encounterAshtabula County Medical Center10-11-2023 Miscellaneous Notes* Telephone Encounter - Whit Shay LPN - 12/29/2022 8:43 AM EDT Request completed and faxed. * Telephone Encounter - Whit Shay LPN - 12/28/2022 2:00 PM EDT Type of letter/form/fax request - Home Health Care Orders Form received from [facility] on 12/27/22 floor and placed on MD desk () for completion. Completed form needs to be faxed to [phone]. Route to [place] when form completed for processing documented in this [facility]10-09-2023 Miscellaneous Notes* Telephone Encounter - Whit Shay LPN - 12/27/2022 3:41 PM EDT Request completed and faxed. * Telephone Encounter - Whit Shay LPN - 12/22/2022 8:26 AM EDT Type of letter/form/fax request - Home Health Care Orders Form received from [facility] on 12/21/22 floor and placed on MD desk () for completion. Completed form needs to be faxed to [phone]. Route to [place] when form completed for processing documented in this encounterAshtabula County Medical Center09-28-2023 Miscellaneous Notes* Telephone Encounter - Parul Sanderson OCCA - 12/16/2022 2:11 PM EDT Last appointment: 09/15/22 Next appointment: 01/14/23 Pharmacy verified in [place]. Refill(s) requested: Requested Prescriptions Pending Prescriptions Disp Refills oxyCODONE-acetaminophen (PERCOCET) 5-325 mg tablet 134 tablet 0 Sig: Take 1 tablet by mouth every 4 hours as needed for pain for up to 30 days. Order(s) pended. Please advise,thank you. Parul GOMES December 16, 2022 2:12 PM documented in this encounterAshtabula County Medical Center09-23-2023 Miscellaneous Notes* Telephone Encounter - Whit Shay LPN - 12/11/2022 8:37 AM EDT Home care Certification Form 485 received from [facility]. For cert dates 11/29/22 to 01/27/23 that were signed on 12/07/22. Recertification Patient's home health 485 form / care plan for stated certification period reviewed and signed. Relevant medical records were reviewed. No changes were indicated documented in this encounterAshtabula County Medical Center09-22-2023 Miscellaneous Notes* Telephone Encounter - Cayden Acevedo [...] advise. Cayden Acevedo CMA documented in this encounterAshtabula County Medical Center09-21-2023 Miscellaneous Notes* Telephone Encounter - Whit Shay LPN - 12/09/2022 2:57 PM EDT Request completed and faxed. * Telephone Encounter - Herminia Case MD - 12/09/2022 2:49 PM EDT Done. * Telephone Encounter - Whit Shay LPN - 12/09/2022 2:16 PM EDT Type of letter/form/fax request - Home Health Care Orders Form received from [facility] on 12/07/22 floor and placed on desk () for completion. Completed form needs to be faxed to [phone]. Route to [place] when form completed for processing documented in this encounterAshtabula County Medical Center09-21-2023 History of Present illness Narrative* Silvia Trejo Ma - 12/09/2022 10:45 AM EDT Spoke with patient. Patient states that she will complete it and send it in. documented in this encounterAshtabula County Medical Center09-19-2023 Miscellaneous Notes* Telephone Encounter - Whit Shay LPN - 12/07/2022 4:19 PM EDT Request completed and faxed. * Telephone Encounter - Herminia Case MD - 12/07/2022 4:01 PM EDT Done. * Telephone Encounter - Whit Shay LPN - 12/07/2022 8:50 AM EDT Type of letter/form/fax request - Home Health Care Orders Form received from [facility] on 12/03/22 floor and placed on MD desk () for completion. Completed form needs to be faxed to [phone]. Route to [place] when form completed for processing documented in this encounterAshtabula County Medical Center09-12-2023 Miscellaneous Notes* Telephone Encounter - Whit Shay LPN - 11/30/2022 9:33 AM EDT Called Leola from [facility] and relayed message below. She verbalized understanding. Whit Shay LPN * Telephone Encounter - Herminia Case MD - 11/29/2022 7:19 PM EDT yes * Telephone Encounter - Jessica Castro - 11/29/2022 4:41 PM EDT Leola Villanueva from [facility] is calling to confirm that Dr. Case will follow patient for home health care. Please call back to [phone] documented in this encounterAshtabula County Medical Center09-05-2023 Miscellaneous Notes* Telephone Encounter - Simran Prasad Ma - 11/23/2022 7:49 PM EDT Date of last office visit : 09/15/2022 Date of next office visit : 01/14/2023 Pharmacy verified in [facility]. Refill(s) requested: Requested Prescriptions Pending Prescriptions Disp Refills SPIRIVA RESPIMAT 2.5 mcg/actuation inhaler [Pharmacy Med Name: SPIRIVA RESPIMAT 2.5 MCG INH] 3 Sig: INHALE 2 PUFFS BY MOUTH ONCE DAILY DIRECTED Order(s) pended. Please advise. Simran Prasad Ma, ELISEO documented in this encounterAshtabula County Medical Center09-01-2023 Miscellaneous Notes* Telephone Encounter - Estee Amor LPN - 2022 4:01 PM EDT Pharmacy verified in [facility] Patient has been identified by name [...] advise. Estee Amor LPN documented in this encounterAshtabula County Medical Center08-31-2023 Miscellaneous Notes* Telephone Encounter - Madison Ceja - 11/18/2022 1:04 PM EDT Patient scheduled for sooner appointment * Telephone Encounter - Herminia Case MD - 11/18/2022 12:50 PM EDT Needs sooner appt for pain med refills. * Telephone Encounter - Parul Sanderson OCCA - 11/17/2022 12:54 PM EDT Last appointment: 09/15/22 Next appointment: 03/17/23 Pharmacy verified in [facility]. Refill(s) requested: Requested Prescriptions Pending Prescriptions Disp Refills oxyCODONE-acetaminophen (PERCOCET) 5-325 mg tablet 134 tablet 0 Sig: Take 1 tablet by mouth every 4 hours as needed for pain for up to 30 days. Order(s) pended. Please advise,thank you. Parul GOMES November 17, 2022 12:55 PM documented in this encounterAshtabula County Medical Center08-28-2023 Miscellaneous Notes* Telephone Encounter - Maria Alejandra Reno MA - 11/15/2022 1:29 PM EDT Pharmacy verified in [facility] Patient has been identified by name [...] Maria Alejandra Reno MA documented in this encounterAshtabula County Medical Center08-21-2023 Note* Care Coordination - SATURNINO Garcia - 11/08/2022 2:29 PM EDT S/W, follow up Patient discharged to [facility]. Transport set via [facility] at 430p. utility lineman provided report number. I did visit patient in room to notify. Patient and myself did notify daughter karishma via speaker phone of transport this evening. [facility] [id number] Note* Care Coordination - SATURNINO Garcia - 11/08/2022 2:29 PM EDT S/W, follow up Patient discharged to [facility]. Transport set via [facility] at 430p. utility lineman provided report number. I did visit patient in room to notify. Patient and myself did notify daughter karishma via speaker phone of transport this evening. [facility] [id number] Miscellaneous Notes* Care Coordination - SATURNINO Garcia - 11/08/2022 2:29 PM EDT S/W, follow up Patient discharged to [facility]. Transport set via [facility] at 430p. utility lineman provided report number. I did visit patient in room to notify. Patient and myself did notify daughter karishma via speaker phone of transport this evening. * Care Coordination - Unknown Case Management - 11/08/2022 1:57 PM EDT Patient Choice Patient Name: GONZALO DELUCA Date of : 1955 All Providers Sent Referral Name: [facility] Phone: [phone] Address: [address] [place] [address] * Care Coordination - Phillip Gurrola RN - 11/08/2022 11:20 AM EDT Tasked SHOE TRIMMER to submit for auth for [facility]. . * Care Coordination - Phillip Gurrola RN - 11/08/2022 6:59 AM EDT Images from the original note were not included. Care Management Progress Note Awaiting therapy evals and recommendations. Per careport. [facility] is able to accept. Will need insurance [...] Isaac LPN - 11/07/2022 4:39 PM EDT Anchor Operator following case for Discharge Needs. * Care Coordination - Phillip Gurrola RN - 11/07/2022 4:20 PM EDT Care Managment Initial Assessment Date: 11/07/2022 Patient Name: Gonzalo Deluca : 1955 Patient Information Source of Information: Patient Name/Contact Information: KARISHMA DELUCA [phone] BRENDON DELUCA SON [phone] Cognition/Language: WFL - Within Functional Limits Permission given to speak with patient sales representative printing supplies/caregiver as indicated: Yes Confirmation of Payer with patient/family: Yes Payer Name: [facility] DUAL COMPLETE : No Confirmation of Primary [...] Daily Living Prescription Coverage: Yes Pharmacy Used: [facility] Medication Management: Prescription pick-up Who assists with [...] discharged to: RETIREMENT FACILITY Discharge Planning Actions: [facility] Facility referral indicated [place] of choice: [place] of choice discussed, Choice list provided Patient's [...] states she is planning discharging to a long term facility and would like to go to facility in [place] where her daughter's friend works-[facility]. Will place referral in careport to determine if bed is available and if [facility] is in network with patient's [facility]. Did instruct patient to choose 3 other facilities in case there is no bed available at [facility]. Will have home care follow peripherally should [...] femoral neck fracture Surgeon: Andres Ventura MD Precision Dyer: Jono HARRIS Anesthesia: General Estimate blood loss: [...] the shift include Safety documented in this encounterSPeoples [id number] Note* Care Coordination - Unknown Case Management - 11/08/2022 1:57 PM EDT Patient Choice Patient Name: GONZALO DELUCA Date of : 1955 All Providers Sent Referral Name: [facility] Phone: [phone] Address: [address] [place], [place] [id number] [place] [id number] Note* Care Coordination - Unknown Case Management - 11/08/2022 1:57 PM EDT Patient Choice Patient Name: GONZALO DELUCA Date of : 1955 All Providers Sent [facility] Phone: [phone] Address: [address] [place], [place] [id number] [id number] Hospital Discharge instructions* Discharge Instr - SHAMA* [...] Minimal assistance Toileting Minimal assistance Feeding Independent Correctional Supply Supervisor Minimal assistance Med Delivery no Wound Care [...] Score: @READMISSIONRISKDETAILS@ Discharging to Facility/ Agency Name: [facility] [facility] Address:[address] [place] [address] Phone:[phone] Fax: Dialysis Facility (if applicable) Name: Address: Dialysis Schedule: Phone: Fax: Clinical Quality Assurance Associate/Student Assistance Counselor signature: ICIAN SECTION Prognosis: excellent Condition at Discharge: stable Rehab Potential (if transferring to Rehab): excellent Recommended Labs or Other Treatments After Discharge: none Physician Certification: I certify the above information and transfer of Gonzalo Deluca is necessary for the continuing treatment of the diagnosis listed and that she requires long term facility for less than 30 days. Update Admission H&P: No change in H&P PHYSICIAN SIGNATURE: documented in this [facility]08-21-2023 Hospital course Narrative* Raul Whipple DO - [...] Disposition: Patient discharged in stable condition to [facility] LABS: CBC: Recent Labs 11/06/22 [...] Complexity: follow up within 7-14 calendar days (92513) [x] Severe Complexity: follow up within 7 calendar days (24000) Follow up Testing, Pending results or Referrals [...] DO Division of Hospitalist Medicine Inpatient Medical Services/[facility] 11/08/2022, 1:31 PM Total time Spent on Discharge: 21 minutes documented in this [facility]08-21-2023 History of Present illness Narrative* Raul Whipple DO - 11/08/2022 1:00 PM EDT Images from the original note were not included. Hospitalist Progress Note 11/08/[phone]: Please page me ([phone]) for patient care issues. [phone]: Please page [facility] Hospitalist for any issues. Subjective: Admit Date: 11/06/2022 PCP: HERMINIA CASE MD Room#: H0-014/E6-145 A Interval History: No overnight issues. Denies [...] Relation: Child Raul Whipple DO [facility] PAGER: Epic chat * Betesy Gresham MD - 11/08/2022 11:05 AM EDT [...] 11/08/2022 10:19 AM EDT Occupational Therapy Facility/Department: [facility] Occupational Therapy Initial Evaluation NAME: Gonzalo [...] intertrochanteric fracture of left femur, initial encounter ([facility]). has a past medical history of Abnormal stress test, Allergic rhinitis, Arthritis, Asthma, Bronchitis, Cancer ([facility]/HCC) ([facility]), Cervical cancer ([facility]/HCC) ([facility]), Chest pain, COPD (chronic obstructive pulmonary disease) ([facility]), DDD (degenerative disc disease), cervical, Defect, retina, with detachment, DJD (degenerative joint disease), lumbar, Emphysema lung ([facility]), Former smoker, Hematuria, Hypokalemia, Lung nodules, Osteoporosis, Palpitations, Pneumonia, Recurrent major depression ([facility]), Sciatica, Thoracic compression fracture ([facility]), and Vitamin D deficiency. She has no past medical history of Blood circulation, collateral, Chronic kidney disease, Clotting disorder (CMS/HCC) ([facility]), Disease of blood and blood forming organ, GERD (gastroesophageal reflux disease), Liver disease, Movement disorder, Other disorders of kidney and ureter in diseases classified elsewhere, Seizures ([facility]), or Syncope and collapse. has a past [...] Daily Activity Raw Score: 19 ADL Inpatient [facility] G-Code Modifier: CK Goals Encounter Problems Encounter [...] 11/08/2022 9:45 AM EDT Physical Therapy Facility/Department: [facility] Physical Therapy Initial Evaluation NAME: Gonzalo [...] fixation with Dr. Ventura, is WBAT Exam: [facility] Clinical Presentation: Pt admitted 11/06 with s/p [...] intertrochanteric fracture of left femur, initial encounter ([facility]). has a past medical history of Abnormal stress test, Allergic rhinitis, Arthritis, Asthma, Bronchitis, Cancer (CMS/HCC) ([facility]), Cervical cancer (CMS/HCC) ([facility]), Chest pain, COPD (chronic obstructive pulmonary disease) ([facility]), DDD (degenerative disc disease), cervical, Defect, retina, with detachment, DJD (degenerative joint disease), lumbar, Emphysema lung ([facility]), Former smoker, Hematuria, Hypokalemia, Lung nodules, Osteoporosis, Palpitations, Pneumonia, Recurrent major depression ([facility]), Sciatica, Thoracic compression fracture ([facility]), and Vitamin D deficiency. She has no past medical history of Blood circulation, collateral, Chronic kidney disease, Clotting disorder (CMS/HCC) ([facility]), Disease of blood and blood forming organ, GERD (gastroesophageal reflux disease), Liver disease, Movement disorder, Other disorders of kidney and ureter in diseases classified elsewhere, Seizures ([facility]), or Syncope and collapse. has a past [...] note were not included. Hospitalist Progress Note 11/07/[id number]: Please page me ([phone]) for patient care issues. [phone]: Please page [facility] night Hospitalist for any issues. Subjective: Admit [...] DO Division of Hospitalist Medicine Inpatient Medical Services/[facility] PAGER: Epic chat documented in this encounterSPeoples HospitalVulltb96-41-1479 Note* Care Coordination - Phillip Gurrola RN - 11/08/2022 11:20 AM EDT Tasked SHOE TRIMMER to submit for auth for [facility]. . [facility] HospitalOsbquv58-77-4781 Note* Care Coordination - Phillip Gurrola RN - 11/08/2022 11:20 AM EDT Tasked SHOE TRIMMER to submit for auth for [facility]. . [facility] HospitalKryabs92-15-6802 Nurse Note* Austyn Bee RN - 11/08/2022 10:58 AM EDT Pt. found with vape in bed. When asking pt. about using the vape, pt stated, I have been using this since I've been here Patient educated on no smoking/vaping policy. Vape removed and placed in chart box. Protective services notified. Dr. Whipple notified. See orders. [facility] HospitalYqjpwk98-15-6104 Nurse Note* Austyn Bee RN - 11/08/2022 10:58 AM EDT Pt. found with vape in bed. When asking pt. about using the vape, pt stated, I have been using this since I've been here Patient educated on no smoking/vaping policy. Vape removed and placed in chart box. Protective services notified. Dr. Whipple notified. See orders. documented in this encounterSPeoples HospitalWtyqzw16-96-9953 Miscellaneous Notes* Telephone Encounter - Whit Shay LPN - 11/08/2022 8:17 AM EDT Medication is pended. Last visit: 09/15/22 Next visit: 03/17/23 documented in this [facility]As[facility]-21-[facility]23 Note* Care Coordination - Phillip Gurrola RN - 11/08/2022 6:59 AM EDT Images from the original note were not included. Care Management Progress Note Awaiting therapy evals and recommendations. Per careport. [facility] is able to accept. Will need [...] (Days): 2 GMLOS: No GMLOS Documented . [facility] [id number] Note* Care Coordination - Phillip Gurrola RN - 11/08/2022 6:59 AM EDT Images from the original note were not included. Care Management Progress Note Awaiting therapy evals and recommendations. Per careport. [facility] is able to accept. Will need [...] (Days): 2 GMLOS: No GMLOS Documented . [facility] HospitalYozvoc55-30-9411 Plan of care note* Care Plan - Tona Barroso RN - 11/07/2022 9:03 PM EDT The patient is Moderately Stable - Low risk of patient condition declining or worsening The patient's goals for the shift include Pain control and rest. The clinical goals for the shift include Safety [address]Aakzbb06-52-3793 Note* Home Care - Rosa Elena Isaac LPN - 11/07/2022 4:39 PM EDT Anchor Operator following case for Discharge Needs. [facility] HospitalAucajt36-46-2658 Note* Home Care - Rosa Elena Isaac LPN - 11/07/2022 4:39 PM EDT Anchor Operator following case for Discharge Needs. [address]zxtgl09-84-9410 Note* Care Coordination - Phillip Gurrola RN - 11/07/2022 4:20 PM EDT Care Managment Initial Assessment Date: 11/07/2022 Patient Name: Gonzalo Deluca : 1955 Patient Information Source of Information: Patient Name/Contact Information: KARISHMA DELUCA [phone] LOWELL AND JACE DELUCA SON [phone] Cognition/Language: WFL - Within Functional Limits Permission given to speak with patient sales representative printing supplies/caregiver as indicated: Yes Confirmation of Payer with patient/family: Yes Payer Name: [facility] DUAL COMPLETE : No Confirmation of Primary [...] Daily Living Prescription Coverage: Yes Pharmacy Used: [facility] Medication Management: Prescription pick-up Who assists with [...] discharged to: RETIREMENT FACILITY Discharge Planning Actions: [facility] Facility referral indicated [place]: [place] discussed, Choice list provided Patient's [...] states she is planning discharging to a long term facility and would like to go to facility in [place] where her daughter's friend works-[facility]. Will place referral in careport to determine if bed is available and if fa cility is in network with patient's [facility]. Did instruct patient to choose 3 other facilities in case there is no bed available at [facility]. Will have home care follow peripherally should therapy recommend home with c. Tentative discharge plan is home with hhc vs snf when medically stable/accepting facility and auth obtained. Phillip Gurrola RN [facility] HospitalFkwwtq04-06-8327 Note* Care Coordination - Phillip Gurrola RN - 11/07/2022 4:20 PM EDT Care Managment Initial Assessment Date: 11/07/2022 Patient Name: Gonzalo Deluca : 1955 Patient Information Source of Information: Patient Name/Contact Information: KARISHMA DELUCA [phone] LOWELL AND JACE DELUCA SON [phone] Cognition/Language: WFL - Within Functional Limits Permission given to speak with patient sales representative printing supplies/caregiver as indicated: Yes Confirmation of Payer with patient/family: Yes Payer Name: [facility] DUAL COMPLETE [place]: No Confirmation of Primary Care Physician: Confirmed [...] Daily Living Prescription Coverage: Yes Pharmacy Used: [facility] Medication Management: Prescription pick-up Who assists with [...] discharged to: RETIREMENT FACILITY Discharge Planning Actions: [facility] Facility referral indicated [place] of choice: [place] of choice discussed, Choice list provided Patient's [...] states she is planning discharging to a long term facility and would like to go to facility in [place] where her daughter's friend works-[facility]. [facility] and if fa cility is in network with patient's [facility]. Did instruct patient to choose 3 other facilities in case there is no bed available at [facility]. Will have home care follow peripherally should therapy recommend home with hhc. Tentative discharge plan is home with hhc vs snf when medically stable/accepting facility and auth obtained. Phillip Gurrola RN [facility] HospitalIlzthg62-40-8148 Note* Op Note - Andres Ventura MD - 11/07/2022 8:14 AM EDT Preoperative diagnosis: Left nondisplaced valgus impacted subcapital femoral neck fracture Postoperative diagnosis: Same Procedure: Percutaneous cannulated screw fixation left femoral neck fracture Surgeon: Andres Ventura MD Precision Dyer: Jono HARRIS Anesthesia: General Estimate blood loss: [...] taken to recovery in stable condition. T [facility] HospitalZrnski04-55-8450 Note* Op Note - Andres Ventura MD - 11/07/2022 8:14 AM EDT Preoperative diagnosis: Left nondisplaced valgus impacted subcapital femoral neck fracture Postoperative diagnosis: Same Procedure: Percutaneous cannulated screw fixation left femoral neck fracture Surgeon: Andres Ventura MD Precision Dyer: Jono HARRIS Anesthesia: General Estimate blood loss: [...] taken to recovery in stable condition. T [facility] HospitalHviwyi69-87-6555 Plan of care note* Care Plan - Tona Barroso RN - 11/06/2022 11:24 PM EDT The patient is Moderately Stable - Low risk of patient condition declining or worsening The patient's goals for the shift include Pain control and rest. The clinical goals for the shift include Safety [facility] HospitalUzgrci99-37-3380 Consult note* Andres Ventura MD - 11/06/2022 [...] the holding area to obtain informed consent. [facility] HospitalCzcfip73-77-5957 Consult note* Andres Ventura MD - 11/06/2022 [...] to obtain informed consent. documented in this [facility]08-19-2023 Emergency department Note* Gwen Solorzano RN - 11/06/2022 4:06 PM EDT Spoke with patient about which medications she has taken today, patient states that she take all medications nightly. Change medications to be given nightly. Gwen Solorzano RN 11/06/22 7316 [facility] HospitalCqxqoq02-59-8898 Emergency department Note* Gwen Solorzano RN - [...] and provided support to daughter Karishma in [facility] , pt arrived via EMS. VERA [...] Cancer (CMS/HCC) (HCC) skin Cervical cancer (CMS/HCC) ([facility]) Chest pain COPD (chronic obstructive pulmonary disease) ([facility]) USE OXYGEN 3 L AT NIGHT DDD (degenerative disc disease), cervical Defect, retina, with detachment right DJD (degenerative joint disease), lumbar Emphysema lung ([facility]) Former smoker Hematuria SCHEDULED FOR THE PROCEDURE /SURGERY ON 02/11/2017 Hypokalemia Lung nodules Osteoporosis Palpitations Pneumonia Recurrent major depression ([facility]) Sciatica Thoracic compression fracture ([facility]) Vitamin D deficiency SURGICAL HISTORY Past Surgical [...] COPD. I Austyn Mccann DO am the photogeologist of record. PROCEDURES: Unless otherwise noted below, none Procedures FINAL IMPRESSION 1. Closed displaced intertrochanteric fracture of left femur, initial encounter ([facility]) DISPOSITION Admit 11/06/2022 03:22:00 PM PATIENT REFERRED [...] Verdugo RN 11/06/22 1250 documented in this [place] [address]-19-2023 History and physical note* Raul Whipple, DO [...] Asthma, HLD, anxiety/depression. who presents to [facility] on 11/06/2022 with chief complaint of fall [...] Allergic rhinitis Arthritis Asthma Bronchitis Cancer (CMS/HCC) ([facility]) skin Cervical cancer (CMS/HCC) ([facility]) Chest pain COPD (chronic obstructive pulmonary disease) ([facility]) USE OXYGEN 3 L AT NIGHT DDD (degenerative disc disease), cervical Defect, retina, with detachment right DJD (degenerative joint disease), lumbar Emphysema lung (HCC) Former smoker Hematuria SCHEDULED FOR THE PROCEDURE /SURGERY ON 02/11/2017 Hypokalemia Lung nodules Osteoporosis Palpitations Pneumonia Recurrent major depression ([facility]) Sciatica Thoracic compression fracture ([facility]) Vitamin D deficiency Past Surgical History: Past [...] H&P to the patient's PCP. Thank you. [facility] HospitalPhbshv41-41-9114 History and physical note* Raul Whipple DO [...] Asthma, HLD, anxiety/depression. who presents to [facility] on 11/06/2022 with chief complaint of fall [...] test Allergic rhinitis Arthritis Asthma Bronchitis Cancer (CMS/[facility]) ([facility]) skin Cervical cancer (CMS/HCC) ([facility]) Chest pain COPD (chronic obstructive pulmonary disease) ([facility]) USE OXYGEN 3 L AT NIGHT DDD (degenerative disc disease), cervical Defect, retina, with detachment right DJD (degenerative joint disease), lumbar Emphysema lung ([facility]) Former smoker Hematuria SCHEDULED FOR THE PROCEDURE /SURGERY ON 02/11/2017 Hypokalemia Lung nodules Osteoporosis Palpitations Pneumonia Recurrent major depression ([facility]) Sciatica Thoracic compression fracture ([facility]) Vitamin D deficiency Past Surgical History: Past [...] patient's PCP. Thank you. documented in this [address]19-2023 Emergency department Note* VERA Kraft - 11/06/2022 1:02 PM EDT Guided Karishma back VERA Kraft 11/06/22 1302 [address]Wcdvta18-06-2238 Emergency department Note* VERA Kraft - 11/06/2022 12:57 PM EDT Introduced myself as pt liaison and explaiined role and provided support to daughter Karishma in [facility] , pt arrived via EMS. VERA Kraft 11/06/22 1258 [address]Tkrawt05-83-6866 Emergency department Note* Shelley Verdugo RN - 11/06/2022 12:49 PM EDT Bed: 04 Expected date: Expected time: Means of arrival: Comments: Jean 67/F Fall with L hip pain Shelley Verdugo RN 11/06/22 1250 [address]Faknqx15-89-6412 Emergency department Triage note* Gwen Solorzano RN - 11/06/2022 12:49 PM EDT Patient presents to the ED via EMS. Patient had a mechanical fall in her room due to tripped over her feet. Patient denies hitting head. Patient states she has balance issues at baseline and uses assistance to walk. Patient is resting comfortably with family at bedside. [facility] HospitalSvyqsn24-84-7656 Physician Emergency department Note* Austyn Mccann DO [...] Allergic rhinitis Arthritis Asthma Bronchitis Cancer (CMS/HCC) ([facility]) skin Cervical cancer (CMS/HCC) ([facility]) Chest pain COPD (chronic obstructive pulmonary disease) ([facility]) USE OXYGEN 3 L AT NIGHT DDD (degenerative disc disease), cervical Defect, retina, with detachment right DJD (degenerative joint disease), lumbar Emphysema lung ([facility]) Former smoker Hematuria SCHEDULED FOR THE PROCEDURE /SURGERY ON 02/11/2017 Hypokalemia Lung nodules Osteoporosis Palpitations Pneumonia Recurrent major depression ([facility]) Sciatica Thoracic compression fracture ([facility]) Vitamin D deficiency SURGICAL HISTORY Past Surgical [...] COPD. I Austyn Mccann DO am the photogeologist of record. PROCEDURES: Unless otherwise noted below, none Procedures FINAL IMPRESSION 1. Closed displaced intertrochanteric fracture of left femur, initial encounter ([facility]) DISPOSITION Admit 11/06/2022 03:22:00 PM PATIENT REFERRED [...] Medicine Provider Austyn Mccann DO 11/06/22 1523 [facility] HospitalRizcsr88-49-3183 Telephone encounter Note* Telephone Encounter - DB Kohli CNP - 10/27/2022 11:01 AM EDT With normal HPV and Pap I left a message encouraged patient to call back with any questions or concerns [facility] Phone: 1(914) 585-389508-09-2023 Miscellaneous Notes* Telephone Encounter - DB Kohli CNP - 10/27/2022 11:01 AM EDT With normal HPV and Pap I left a message encouraged patient to call back with any questions or concerns documented in this encounterSPeoples HospitalDczpwe55-58-3217 Miscellaneous Notes* Telephone Encounter - Whit Shay LPN - 10/22/2022 1:01 PM EDT Last appointment: 09/15/22 Next appointment: 03/17/23 Pharmacy verified in [place] Refill(s) requested: Requested Prescriptions Pending Prescriptions Disp Refills sertraline (ZOLOFT) 100 mg tablet [Pharmacy Med Name: SERTRALINE HCL 100 MG TABLET] 180 tablet 1 Sig: TAKE 2 TABLETS BY MOUTH EVERY DAY Order(s) pended. Please advise. Whit Shay LPN, CMA documented in this encounterAshtabula [facility]08-03-2023 Miscellaneous Notes* Telephone Encounter - Whit Shay LPN - 10/21/2022 12:55 PM EDT Last appointment: 09/15/22 Next appointment: 03/17/23 Pharmacy verified in [place]. Refill(s) requested: Requested Prescriptions Pending Prescriptions Disp Refills oxyCODONE-acetaminophen (PERCOCET) 5-325 mg tablet 134 tablet 0 Sig: Take 1 tablet by mouth every 4 hours as needed for pain for up to 30 days. Order(s) pended. Please advise. Whit Shay LPN, SHOE TRIMMER documented in this encounterAshtabula County [facility] Center08-02-2023 History of Present illness Narrative* Kisha Pepe APRN - CARD PLACER - 10/20/2022 2:00 PM EDT @LOGOIMAGE@ Chief [...] Allergic rhinitis Arthritis Asthma Bronchitis Cancer (CMS/HCC) ([facility]) skin Cervical cancer (CMS/HCC) ([facility]) Chest pain COPD (chronic obstructive pulmonary disease) ([facility]) USE OXYGEN 3 L AT NIGHT DDD (degenerative disc disease), cervical Defect, retina, with detachment right DJD (degenerative joint disease), lumbar Emphysema lung ([facility]) Former smoker Hematuria SCHEDULED FOR THE PROCEDURE /SURGERY ON 02/11/2017 Hypokalemia Lung nodules Osteoporosis Palpitations Pneumonia Recurrent major depression ([facility]) Sciatica Thoracic compression fracture ([facility]) Vitamin D deficiency Past Surgical History: Procedure [...] recognition. I apologize for minor errors in parts department supervisor which may be present. documented in this [facility]06-28-2023 History of Present illness Narrative* Melva Sandoval PA-C - 09/15/2022 2:46 PM EDT Gonzalo Deluca is a 66 year old female here today for routine follow up. COPD: Lungs feel junky. Increased sob since air quality became poor. +productive cough. Requesting prednisone and antibiotic. Has appt with doctor of pharmacy in [place] in September. Declines antitrypsin blood draw. Using [...] BONE DENSITY Never done documented in this encounterAshtabula [facility] Center05-12-2023 Miscellaneous Notes* Telephone Encounter - Silvia Trejo Ma - 07/30/2022 11:26 AM EDT Pharmacy verified in [facility] Patient has been identified by name [...] advise. Silvia Trejo Ma documented in this encounterAshtabula [facility] Center05-09-2023 Miscellaneous Notes* Telephone Encounter - Whit Shay LPN - 07/27/2022 3:24 PM EDT Last appointment: 06/03/22 Next appointment: 09/03/22 Pharmacy verified in [facility]. Refill(s) requested: Requested Prescriptions Pending Prescriptions [...] Whit Shay LPN, CMA documented in this encounterAshtabula County Medical Center04-14-2023 Miscellaneous Notes* Telephone Encounter - Melva Sandoval PA-C - 07/02/2022 3:24 PM EDT Noted. Melva Sandoval PA-C * Telephone Encounter - Imelda Hull Pss - 07/02/2022 3:11 PM EDT Laurie HARRISON from [facility] is calling Herminia Case MD today to inform provider as an Patient Update (Cancelled her home OT visit today due to illness )please be advised. Patient was not feeling well. [phone]. Patient has been identified by name and birthdate. Duration of symptoms: N/A Person calling: Laurie HARRISON Call patient at: n/a [phone] (home) [phone] (cell) Was an appointment scheduled: No Closing statement: Results or non-symptom based questions: Thank you for calling [facility], your call will be returned within the next business day. Imelda Hull Pss documented in this encounterAshtabula County Medical Center04-13-2023 Miscellaneous Notes* Telephone Encounter - Whit Shay LPN - 07/01/2022 3:25 PM EDT Request completed and faxed. * Telephone Encounter - Herminia Csae MD - 07/01/2022 3:00 PM EDT Done. * Telephone Encounter - Whit Shay LPN - 07/01/2022 10:35 AM EDT Type of letter/form/fax request - Home Health Care Orders Form received from [facility] on 06/30/22 floor and placed on MD desk () for completion. Completed form needs to be faxed to [phone]. Route to [place] when form completed for processing documented in this encounterAshtabula [facility] Center04-12-2023 Miscellaneous Notes* Telephone Encounter - Ruddy Moreno RN - 06/30/2022 7:20 PM EDT Laurie from [facility] informed. Advised to call back with any further concerns or questions. * Telephone Encounter - Melva Sandoval PA-C - 06/30/2022 7:13 PM EDT I am not aware of any concerning interactions. Melva Sandoval PA-C * Telephone Encounter - Ruddy Moreno RN - 06/30/2022 7:07 PM EDT CHRISTY Sullivan [facility]. Their computer program alerted her to possible interaction and they have to call and notify provider with all alerts. There are no concerns or symptoms to report. * Telephone Encounter - Melva Sandoval PA-C - 06/30/2022 7:02 PM EDT I am not aware of any interaction between the two. Can they clarify? Thanks Melva Sandoval PA-C * Telephone Encounter - Kita Christiansen [facility] - 06/30/2022 3:10 PM EDT Gonzalo Deluca, has Laurie /OT with [facility] is calling Herminia Case MD today to advise ofa possible medication interaction, the albuterol sulfate with the cyclobenzaprine. This is noted they are advised to call provider with this information Laurie [phone] (verified) Patient has been identified by name and birthdate. Duration of symptoms: N/A Person calling: CHRISTY Sullivan with [facility] Call patient at: at home [phone] (home) [phone] (cell) Was an appointment scheduled: No Closing statement: Results or non-symptom based questions: Thank you for calling [facility], your call will be returned within the next business day. Kita Christiansen [facility] documented in this encounterAshtabula County Medical Center04-04-2023 Miscellaneous Notes* Telephone Encounter - [...] Rina, I am an occupational therapist with [facility] [employer] [facility]. I am callingabout patient Gonzalo Deluca, date [...] for me I can be reached at [phone]. Thank you Spoke with patient Complaints of sinus pain and pressure with nasal congestion Yellow nasal discharge Productive cough, yellow green phlegm Onset 06/20/22 Reports nebulizer broke a few years ago and asking for replacement order to be sent to [facility] Will need aerosol prescription also Patient is [...] : NA Protocols used: Sinus Pain or [id number] documented in this encounterAshtabula County Medical Center04-04-2023 Miscellaneous Notes* Telephone Encounter - Bernadette Rubin MA - 06/22/2022 3:55 PM EDT Last appointment: 06/03/22 Next appointment: 09/03/22 Pharmacy verified in [facility]. Refill(s) requested: Requested Prescriptions Pending Prescriptions Disp Refills albuterol (PROVENTIL) 2.5 mg /3 mL (0.083 %) nebulizer solution [Pharmacy Med Name: ALBUTEROL SUL 2.5 MG/3 ML SOLN] 90 mL 1 Sig: INHALE 3 ML VIA NEBULIZER EVERY 4 HOURS NEEDED FOR WHEEZE OR FOR SHORTNESS OF BREATH Order(s) pended. Please advise. Bernadette Rubin MA, [facility] documented in this encounterAshtabula County Medical Center04-04-2023 Miscellaneous Notes* Telephone Encounter - Whit Shay LPN - 06/22/2022 1:16 PM EDT Request completed and faxed. * Telephone Encounter - Herminia Case MD - 06/22/2022 12:59 PM EDT Done. * Telephone Encounter - Whit Shay LPN - 06/22/2022 11:38 AM EDT Type of letter/form/fax request - Home Health Care Orders Form received from [facility] on 06/21/22 floor and placed on desk () for completion. Completed form needs to be faxed to [phone]. Route to [place] when form completed for processing documented in this encounterAshtabula County Medical Center03-27-2023 Miscellaneous Notes* Telephone Encounter - Whit Shay LPN - 06/14/2022 12:32 PM EDT Request completed and faxed. * Telephone Encounter - Herminia Case MD - 06/14/2022 12:18 PM EDT Done. * Telephone Encounter - Whit Shay LPN - 06/14/2022 10:48 AM EDT Type of letter/form/fax request - Home Health Care Orders Form received from [facility] on 06/13/22 floor and placed on MD desk () for completion. Completed form needs to be faxed to [phone]. Route to [place] when form completed for processing documented in this encounterAshtabula County Medical Center03-16-2023 History of Present illness Narrative* Herminia Case MD - 06/03/2022 3:34 PM EDT VIRTUAL VISIT PROGRESS NOTE This is a virtual visit using [employer] video visit. It required patient-provider interaction for themedical decision making as documented below. Gonzalo Deluca is a 66 year old female seen for follow up. Admitted 05/21-05/24 at [facility] none Fell on 05/21 Missed a [...] no rash noted RESPIRATORY: breathing non-labored ASSESSMENT: (S42.473D) Other closed nondisplaced fracture of proximal end [...] visit. Herminia Case MD documented in this encounterAshtabula County Medical Center03-14-2023 Miscellaneous Notes* Telephone Encounter - Whit Shay LPN - 06/01/2022 10:42 AM EDT Request completed and faxed. * Telephone Encounter - Herminia Case MD - 06/01/2022 9:53 AM EDT Done. * Telephone Encounter - Whit Shay LPN - 06/01/2022 9:28 AM EDT Type of letter/form/fax request - Home Health Care Orders Form received from [facility] on 05/28/22 floor and placed on MD desk () for completion. Completed form needs to be faxed to [phone]. Route to [place] when form completed for processing documented in this encounterAshtabula County Medical Center03-13-2023 Miscellaneous Notes* Telephone Encounter - Herminia Case MD - 05/31/2022 8:22 PM EDT Noted. * Telephone Encounter - Jessica Jay - 05/31/2022 4:09 PM EDT Rina is an occupational therapist for [facility] health care and is calling to let Dr. Case know that the patient cancelled her occupational therapy visit last and has put the therapist off until Tuesday (although she has not set up a time yet). Patient's occupational therapy is delayed. Rina [phone] documented in this encounterAshtabula County Medical Center03-06-2023 Note* Care Coordination - Janet [...] HHC. TCC to assist and followas needed. [facility]03-06-2023 Note* Care Coordination - Janet Jean [...] HHC. TCC to assist and followas needed. [facility] [id number] Miscellaneous Notes* Care Coordination - Janet Jean [...] : 1955 All Providers Sent Referral Name: [facility] Phone: [phone] Address: [address] [place] [address] * Home Care - Mahsa Castro RN - 05/23/2022 2:03 PM EST Start PACC Note Home Health Referral Educated patient on Home Care and services available. Patient offered choice of available HHC and agreeable to PT/OT services with [facility]. Care Types: [...] is noted as yes - consider a OFFICE MOVER evaluation once the patient returns home. START PATIENT REGISTRATION INFORMATION Order Information Order Signing Physician: Teresa Cedillo MD Service Ordered RN ?: No Service Ordered PT ?: Yes Service Ordered OT ?: Yes Service Ordered ST ?: No Service Ordered OFFICE MOVER?:No Service Ordered TENNIS CENTRE MANAGER?: No Following Physician: HERMINIA CASE MD Following Physician Overseeing Physician: HERMINIA CASE MD (Required for Residents only) Agreeable to Follow? Office closed Date/Time of Call 05/23/22 2:04 PM Care Coordination SOC Call from [facility] Required?: No Same Day SOC?: No Primary Care Physician: HERMINIA CASE MD Primary Care Physician Primary Care Physician Address: [address] [place], [place] [id number] Visit Instructions: N/A Service Discharge Location Type: Home with Home Health Care Service Facility Name: N/A Service Floor Facility: N/A Service Room No: N/A Demographics Patient Last Name: Yosi Patient First Name: Gonzalo Language/Communication Barrier: n/a Service Address: [address] Service City: [facility] ST: [place] Service ZIP: [address] Service (home) Other phone numbers: Telephone Information: Emergency Contact: Extended Emergency Contact Information Primary Emergency Contact: Karishma Deluca Relation: Child Secondary Emergency Contact: Jace Deluca Relation: Child Admission Information Admit Date: 05/21/2022 Patient status at discharge: Observation Caregiver Information Caregiver First Name: Karishma Caregiver Last Name: Yosi Caregiver Relationship to Patient dtr Caregiver Caregiver Notes: N/A [employer] List No END PATIENT REGISTRATION INFORMATION [...] side Discharge Date: 05/23/22 Referral Source-PACC: (Hospital/Unit): [facility] / B1-147/B1-147 B End PACC Note * Care Coordination - Phillip Gurrola RN - 05/22/2022 4:48 PM EST Care Managment Initial Assessment Date: 05/22/2022 Patient Name: Gonzalo Deluca : 1955 Patient Information Source of Information: Patient Name/Contact Information: KARISHMA DELUCA [phone] DAUGHTER Cognition/Language: WFL - Within Functional Limits Permission given to speak with patient sales representative printing supplies/caregiver as indicated: Yes Confirmation of Payer with patient/family: Yes Payer Name: [facility] DUAL COMPLETE [place]: No Confirmation of Primary Care Physician: Confirmed [...] Daily Living Prescription Coverage: Yes Pharmacy Used: [facility] Medication Management: Prescription pick-up Who assists with [...] expects to be discharged to: HOME WITH [facility] Discharge Planning Actions: Continue to follow Patient's Choice Rights and [employer] and Collaborative Relationships Disclosed as Indicated for Post-Acute Care: NA Interdisciplinary Team Engagement: Home Health Care, PT/OT Social Work Referral for: Additional Information: Admitted from home following a fall. Sustained right shoulder and elbow fracture. Admitted to [facility] ortho consulted, has sling in place to right arm. Pt/ot and pain control. Discharge preparation checklist reviewed with patient. Has prescription coverage and able to afford medications. Reviewed therapy evals and recommendations of snf with patient and she is electing to discharge to home with [facility] services. social service liaison updated via [facility]. Patient states lives at home with her daughter, prem's boyfriend, and her 6 year granddaughter. States her daughter plans on taking FMLA and staying with her while she recovers. Patient does wear oxygen at 2.5 liters at home cont. Denies anticipating any additional needs upon discharge. Discharge plan home with [facility] when medically stable. Anticipate probable discharge [...] of falls Outcome: Progressing documented in this [facility]03-06-2023 Hospital course Narrative* Teresa Cedillo MD - [...] SNF but patient declined and wished hoemwith [facility]. She was discharged home. SIGNIFICANT DIAGNOSTIC [...] Complexity: follow up within 7-14 calendar days (36290) [] Severe Complexity: follow up within 7 calendar days (12406) FOLLOW UP TESTING, PENDING RESULTS OR REFERRALS AT TRANSITIONAL CARE VISIT: [] Yes [] No PENDING STUDIES: No DISPOSITION: Home FACILITY/HOME CARE AGENCY NAME: Follow up with Betsey Gresham MD [address] [place] [address] [place] [phone] Schedule an appointment as soon as possible for a visit in 3 week(s) Herminia Case MD [address] [facility] [address] Schedule an appointment as soon as possible [...] MD 05/24/2022, 10:00 AM documented in this [facility]03-06-2023 History of Present illness Narrative* Martita Ervin, PROFESSIONAL EMPLOYER CONSULTANT - 05/24/2022 8:39 AM EST Physical Therapy Facility/Department: [facility] Physical Therapy Daily Treatment Note NAME: [...] Allergic rhinitis, Arthritis, Asthma, Bronchitis, Cancer (CMS/HCC) ([facility]), Cervical cancer (CMS/HCC) ([facility]), Chest pain, COPD (chronic obstructive pulmonary disease) ([facility]), DDD (degenerative disc disease), cervical, Defect, retina, with detachment, DJD (degenerative joint disease), lumbar, Emphysema lung ([facility]), Former smoker, Hematuria, Hypokalemia, Lung nodules, Osteoporosis, Palpitations, Pneumonia, Recurrent major depression ([facility]), Sciatica, Thoracic compression fracture ([facility]), and Vitamin D deficiency. She has no past medical history of Blood circulation, collateral, Chronic kidney disease, Clotting disorder (CMS/HCC) ([facility]), Disease of blood and blood forming organ, GERD (gastroesophageal reflux disease), Liver disease, Movement disorder, Other disorders of kidney and ureter in diseases classified elsewhere, Seizures (CMS/HCC) ([facility]), or Syncope and collapse. has a past [...] but no LOB noted. Distance (ft) 1: [id number] Comments 1: O2 after 50ft x 1 [...] Inpatient Mobility Raw Score: 16 Mobility Inpatient [facility] G-Code Modifier: CK Goals Encounter Problems Encounter [...] were not included. Hospitalist Progress Note 05/23/2022 [phone]: Please message me for patient care issues. [phone]: Please message [facility] Hospitalist for any issues. Subjective: Admit Date: 05/21/2022 PCP: HERMINIA CASE MD Room#: B1-147/B1-147 B Interval History: Remains on oxygen. Tolerating diet. Pain controlled. Denies chest pain, sob, abdominal pain, nausea, vomiting, diarrhea, constipation, fevers, or chills. She is weak. Still does notwant SNF/FBT but does not feel ready to go home today. D/w pt and RN separately. Adult diet Regular @[id number]@ 24HR INTAKE/OUTPUT: No intake or output data [...] TERESA CEDILLO MD Division of Hospitalist Medicine [facility] PAGER: Epic chat * Andres Ventura MD [...] 05/23/2022 8:34 AM EST Physical Therapy Facility/Department: [facility] 1 E Physical Therapy Daily Treatment Note [...] Allergic rhinitis, Arthritis, Asthma, Bronchitis, Cancer (CMS/HCC) ([facility]), Cervical cancer (CMS/HCC) ([facility]), Chest pain, COPD (chronic obstructive pulmonary disease) ([facility]), DDD (degenerative disc disease), cervical, Defect, retina, with detachment, DJD (degenerative joint disease), lumbar, Emphysema lung ([facility]), Former smoker, Hematuria, Hypokalemia, Lung nodules, Osteoporosis, Palpitations, Pneumonia, Recurrent major depression ([facility]), Sciatica, Thoracic compression fracture ([facility]), and Vitamin D deficiency. She has no past medical history of Blood circulation, collateral, Chronic kidney disease, Clotting disorder (CMS/HCC) ([facility]), Disease of blood and blood forming organ, GERD (gastroesophageal reflux disease), Liver disease, Movement disorder, Other disorders of kidney and ureter in diseases classified elsewhere, Seizures (CMS/HCC) ([facility]), or Syncope and collapse. has a past [...] 05/22/2022 2:44 PM EST Physical Therapy Facility/Department: [facility] Physical Therapy Daily Treatment Note NAME: Gonzalo Dleuca : 1955 Date of Service: 05/22/2022 Discharge [...] Allergic rhinitis, Arthritis, Asthma, Bronchitis, Cancer (CMS/HCC) ([facility]), Cervical cancer (CMS/HCC) ([facility]), Chest pain, COPD (chronic obstructive pulmonary disease) ([facility]), DDD (degenerative disc disease), cervical, Defect, retina, with detachment, DJD (degenerative joint disease), lumbar, Emphysema lung ([facility]), Former smoker, Hematuria, Hypokalemia, Lung nodules, Osteoporosis, Palpitations, Pneumonia, Recurrent major depression ([facility]), Sciatica, Thoracic compression fracture ([facility]), and Vitamin D deficiency. She has no past medical history of Blood circulation, collateral, Chronic kidney disease, Clotting disorder (CMS/HCC) ([facility]), Disease of blood and blood forming organ, GERD (gastroesophageal reflux disease), Liver disease, Movement disorder, Other disorders of kidney and ureter in diseases classified elsewhere, Seizures (CMS/HCC) ([facility]), or Syncope and collapse. has a past [...] Inpatient Mobility Raw Score: 14 Mobility Inpatient [facility] G-Code Modifier: CL Goals Encounter Problems Encounter [...] note were not included. Hospitalist Progress Note 05/22/[id number]: Please message me for patient care issues. [phone]: Please message [facility] Hospitalist for any issues. Subjective: Admit Date: 05/21/2022 PCP: HERMINIA CASE MD Room#: -147/[facility] B Interval History: Pain controlled. Tolerating diet. Weak. Denies chest pain, sob, abdominal pain, nausea, vomiting, diarrhea, constipation, fevers, or chills. D/w pt Adult diet Regular @[id number]@ 24HR INTAKE/OUTPUT: No intake or output data [...] Relation: Child TERESA CEDILLO MD [facility] P[facility]ER: Epic chat * Andres Ventura MD [...] 05/21/2022 3:31 PM EST Physical Therapy Facility/Department: [facility] ED Physical Therapy Initial Evaluation NAME: [...] Allergic rhinitis, Arthritis, Asthma, Bronchitis, Cancer (CMS/HCC) ([facility]), Cervical cancer (CMS/HCC) ([facility]), Chest pain, COPD (chronic obstructive pulmonary disease) ([facility]), DDD (degenerative disc disease), cervical, Defect, retina, with detachment, DJD (degenerative joint disease), lumbar, Emphysema lung ([facility]), Former smoker, Hematuria, Hypokalemia, Lung nodules, Osteoporosis, Palpitations, Pneumonia, Recurrent major depression ([facility]), Sciatica, Thoracic compression fracture ([facility]), and Vitamin D deficiency. She has no past medical history of Blood circulation, collateral, Chronic kidney disease, Clotting disorder (CMS/HCC) ([facility]), Disease of blood and blood forming organ, GERD (gastroesophageal reflux disease), Liver disease, Movement disorder, Other disorders of kidney and ureter in diseases classified elsewhere, Seizures (CMS/HCC) ([facility]), or Syncope and collapse. has a past [...] Independent (no device) Transfer Assistance: Independent Active Supervisor Metal Cans: No Additional Comments: daughter works Objective Observation/Palpation [...] Inpatient Mobility Raw Score: 12 Mobility Inpatient [facility] G-Code Modifier: CL Goals Encounter Problems Encounter [...] 05/21/2022 3:27 PM EST Occupational Therapy Facility/Department: [facility] ED Occupational Therapy Initial Evaluation NAME: [...] Allergic rhinitis, Arthritis, Asthma, Bronchitis, Cancer (CMS/HCC) ([facility]), Cervical cancer (CMS/HCC) ([facility]), Chest pain, COPD (chronic obstructive pulmonary disease) ([facility]), DDD (degenerative disc disease), cervical, Defect, retina, with detachment, DJD (degenerative joint disease), lumbar, Emphysema lung ([facility]), Former smoker, Hematuria, Hypokalemia, Lung nodules, Osteoporosis, Palpitations, Pneumonia, Recurrent major depression ([facility]), Sciatica, Thoracic compression fracture ([facility]), and Vitamin D deficiency. She has no past medical history of Blood circulation, collateral, Chronic kidney disease, Clotting disorder (CMS/HCC) ([facility]), Disease of blood and blood forming organ, GERD (gastroesophageal reflux disease), Liver disease, Movement disorder, Other disorders of kidney and ureter in diseases classified elsewhere, Seizures (CMS/HCC) ([facility]), or Syncope and collapse. has a past [...] Independent (no device) Transfer Assistance: Independent Active Supervisor Metal Cans: No Additional Comments: daughter works Objective Gross [...] Daily Activity Raw Score: 17 ADL Inpatient [facility] G-Code Modifier: CK Goals Encounter Problems Encounter [...] is seen and examined, admitted by the bell clerk early a.m., see H&P for details. Patient [...] 05/21/2022 7:43 AM EST Occupational Therapy Facility/Department: [facility] ED Occupational Therapy Initial Evaluation NAME: [...] 05/21/2022 7:40 AM EST Physical Therapy Facility/Department: [facility] ED Physical Therapy Initial Evaluation NAME: Gonzalo Deluca : 1955 Date of Service: 05/21/2022 PT/OT evaluation orders received and chart review completed. Pt found to have R proximal humerus fracture and possible R elbow occult right osseous fracture. Ortho consult pending. Will hold for updated POC and weight bearing status prior to initiating evaluation. Marian Mendosa PT documented in this encounterSPeoples [id number] Plan of care note* Care Plan - [...] will remain free of falls Outcome: Progressing [facility] [id number] Plan of care note* Care Plan - [...] 180 by Nicole Swift RN Outcome: Progressing [facility] [id number] Note* Care Coordination - Unknown Case Management - 05/23/2022 2:13 PM EST Patient Choice Patient Name: GONZALO DELUCA Date of : 1955 All Providers Sent Referral Name: [facility] Phone: [phone] Address: [address] [place] [address] [facility] [id number] Note* Care Coordination - Unknown Case Management - 05/23/2022 2:13 PM EST Patient Choice Patient Name: GONZALO DELUCA Date of : 1955 All Providers Sent Referral Name: [facility] Phone: [phone] Address: [address] [place], [place] [id number] [employer]a [id number] Note* Home Care - Mahsa Castro RN - 05/23/2022 2:03 PM EST Start PACC Note Home Health Referral Educated patient on Home Care and services available. Patient offered choice of available HHC and agreeable to PT/OT services with [facility]. Care Types: [...] is noted as yes - consider a OFFICE MOVER evaluation once the patient returns home. START PATIENT REGISTRATION INFORMATION Order Information Order Signing Physician: Teresa Cedillo MD Service Ordered RN ?: No Service Ordered PT ?: Yes Service Ordered OT ?: Yes Service Ordered ST ?: No Service Ordered OFFICE MOVER?:No Service Ordered TENNIS CENTRE MANAGER?: No Following Physician: HERMINIA CASE MD Following Physician Overseeing Physician: HERMINIA CASE MD (Required for Residents only) Agreeable to Follow? Office closed Date/Time of Call 05/23/22 2:04 PM Care Coordination SOC Call from [facility] Required?: No Same Day SOC?: No Primary Care Physician: HERMINIA CASE MD Primary Care Physician Primary Care Physician Address: [address] [place] [address] Visit Instructions: N/A Service Discharge Location Type: Home with Home Health Care Service Facility Name: N/A Service Floor Facility: N/A Service Room No: N/A Demographics Patient Last Name: Yosi Patient First Name: Gonzalo Language/Communication Barrier: n/a Service Address: [address] [place], [place] [address] Service City: [facility] ST: [place] Service ZIP: [address] Service (home) Other phone numbers: Telephone Information: Emergency Contact: Extended Emergency Contact Information Primary Emergency Contact: Karishma Deluca Relation: Child Secondary Emergency Contact: Jace Deluca Relation: Child Admission Information Admit Date: 05/21/2022 Patient status at discharge: Observation Caregiver Information Caregiver First Name: Karishma Caregiver Last Name: Yosi Caregiver Relationship to Patient dtr Caregiver Caregiver Notes: N/A [employer] List No END PATIENT REGISTRATION INFORMATION [...] side Discharge Date: 05/23/22 Referral Source-PACC: (Hospital/Unit): [facility] / B1-147/B1-147 B End [id number]* Home Care - Mahsa Castro RN - 05/23/2022 2:03 PM EST Start PACC Note Home Health Referral Educated patient on Home Care and services available. Patient offered choice of available HHC and agreeable to PT/OT services with [facility]. Care [...] is noted as yes - consider a OFFICE MOVER evaluation once the patient returns home. START PATIENT REGISTRATION INFORMATION Order Information Order Signing Physician: Teresa Cedillo MD Service Ordered RN ?: No Service Ordered PT ?: Yes Service Ordered OT ?: Yes Service Ordered ST ?: No Service Ordered OFFICE MOVER?:No Service Ordered TENNIS CENTRE MANAGER?: No Following Physician: HERMINIA CASE MD Following Physician Overseeing Physician: HERMINIA CASE MD (Required for Residents only) Agreeable to Follow? Office closed Date/Time of Call 05/23/22 2:04 PM Care Coordination SOC Call from [facility] Required?: No Same Day SOC?: No Primary Care Physician: HERMINIA CASE MD Primary Care Physician Primary Care Physician Address: [address] [place] [id number] Visit Instructions: N/A Service Discharge Location Type: Home with Home Health Care Service Facility Name: N/A Service Floor Facility: N/A Service Room No: N/A Demographics Patient Last Name: Yosi Patient First Name: Gonzalo Language/Communication Barrier: n/a Service Address: [address] [place], [place] [address] Service City: [facility] ST: [place] Service ZIP: [address] Service (home) Other phone numbers: Telephone Information: Emergency Contact: Extended Emergency Contact Information Primary Emergency Contact: Karishma Deluca Relation: Child Secondary Emergency Contact: Jace Deluca Relation: Child Admission Information Admit Date: 05/21/2022 Patient status at discharge: Observation Caregiver Information Caregiver First Name: Karishma Caregiver Last Name: Yosi Caregiver Relationship to Patient dtr Caregiver Caregiver Notes: N/A [email or web address] List No END PATIENT REGISTRATION INFORMATION Pt [...] side Discharge Date: 05/23/22 Referral Source-PACC: (Hospital/Unit): [facility] / B1-147/B1-147 B End [facility]ACC [id number] Hospital Discharge instructions* Discharge Instr - Activity* Teresa Cedillo MD - 05/23/2022 12:34 PM EST Non weight bearing right upper extremity Continue shoulder immobilizer * Discharge Instr - Diet* Teresa Cedillo MD - 05/23/2022 12:35 PM EST Regular diet * Discharge Instr - Other Orders* Mahsa Castro RN - 05/23/2022 2:03 PM EST Discharging to Facility/ Agency Name: [facility] Address: [address] [place] [address] * Discharge Instr - SHAMA* Deanna Nick, EMPLOYMENT AGENCY MANAGER - 05/24/2022 10:49 AM EST Continuity of [...] 2.6 oz) Mental Status: {SHAMA Patient Mental Status:08292} IV Access: {SHAMA IV Access:82325} Nursing Mobility/ADLs: Walking {YANETH ADL:18798::Independent} Transfer {YANETH ADL:32739::Independent} Bathing {YANETH ADL:30232::Independent} Dressing {YANETH ADL:11261::Independent} Toileting {YANETH ADL:28919::Independent} Feeding {YANETH ADL:67199::Independent} Correctional Supply Supervisor {YANETH ADL:77822::Independent} Med Delivery {yes/no:89873} Wound Care Documentation and Therapy: Wound/Incision 05/21/22 Traumatic Eye Right (Active) Site Assessment Swelling 05/24/22 0755 Odor None 05/23/22 0941 Drainage Amount None 05/24/22 0755 Primary Dressing Open to air 05/24/22 0755 Number of days: 2 Wound/Incision 05/21/22 Traumatic Wrist Left;Posterior (Active) Site Assessment Steen 05/24/22 0755 Odor None 05/24/22 0755 Drainage Amount None 05/24/22 0755 Primary Dressing Steri-strips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 with acute bronchitis DDD (degenerative disc disease), lumbar Degeneration of lumbar or lumbosacral intervertebral disc Major depression, recurrent, chronic (HCC) Major depressive disorder, recurrent episode, unspecified documented in this encounter [facility]* Diagnosis Chronic midline low back pain without sciatica [facility] Diagnosis Compression fracture of body of thoracic vertebra (HCC) [facility]* Diagnosis Other closed nondisplaced [...] thoracic vertebra (HCC) [facility] Diagnosis Chronic respiratory failure with hypoxia (HCC)- Primary Chronic respiratory failure Panlobular emphysema (HCC) Other emphysema [facility]* Diagnosis Encounter for screening mammogram for breast cancer [facility]* Diagnosis Compression fracture of body of thoracic vertebra (HCC) Other closed nondisplaced fracture of proximal end of right humerus with routine healing, subsequent encounter documented in this encounter [facility]* Diagnosis Major depression, recurrent, chronic (HCC) Major depressive disorder, recurrent episode, unspecified [facility]* Diagnosis Medication management Encounter for long-term (current) use of other medications [facility]* Diagnosis Panlobular emphysema (HCC)- [...] recurrent episode, unspecified documented in this encounter [facility]* Diagnosis Major depression, recurrent, chronic (HCC) Major depressive disorder, recurrent episode, unspecified documented in this encounter [facility]* Diagnosis Malignant neoplasm of exocervix (HCC)- Primary Malignant neoplasm of exocervix Encounter for screening mammogram for malignant neoplasm of breast documented in this encounter [facility] note* Diagnosis Compression fracture of body of thoracic vertebra (HCC) Other closed nondisplaced fracture of proximal end of right humerus with routine healing, subsequent encounter documented in this encounter [facility]* Diagnosis Major depression, recurrent, chronic (HCC) Major depressive disorder, recurrent episode, unspecified documented in this encounter [facility]* Diagnosis Pulmonary emphysema, unspecified emphysema type (HCC) documented in this encounter [facility]* Diagnosis Nondisplaced fracture of neck of left femur (HCC)- Primary Closed displaced intertrochanteric fracture of left femur, initial encounter ([facility]) documented in this encounter [facility] note* Diagnosis Compression fracture of body of thoracic vertebra (HCC) [facility]* Diagnosis Compression fracture of body of thoracic vertebra (HCC) Other closed nondisplaced fracture of proximal end of right humerus with routine healing, subsequent encounter documented in this encounter [facility]* Diagnosis Hyperlipidemia, mixed Mixed hyperlipidemia documented in this encounter [facility]* Diagnosis Pulmonary emphysema, unspecified emphysema type (HCC) documented in this encounter [facility]* Diagnosis Age-related osteoporosis without current pathological fracture Senile osteoporosis documented in this encounter [facility]* Diagnosis Age-related osteoporosis with current [...] of moderate degree [facility]* Diagnosis Lumbar compression fracture, closed, initial encounter ([facility])- Primary Lumbar compression fracture, closed, initial encounter ([facility]) Fall, initial encounter Multiple falls Nondisplaced fracture of neck of left femur (HCC) documented in this encounter [facility] note* Diagnosis Compression fracture of body of thoracic vertebra (HCC) Other closed nondisplaced fracture of proximal end of right humerus with routine healing, subsequent encounter documented in this encounter [facility]* Diagnosis PAUL (generalized anxiety disorder)- [...] depressive disorder (HCC) documented in this encounter [facility]* Diagnosis Moderate episode of recurrent major depressive disorder (HCC)- Primary Panlobular emphysema (HCC) Other emphysema documented in this encounter [facility]* Diagnosis Age-related osteoporosis with current pathological fracture of left femur, initial encounter ([facility])- Primary [facility]* Diagnosis PAUL (generalized anxiety disorder) Generalized anxiety disorder documented in this encounter [facility]* Diagnosis Compression fracture of body of thoracic vertebra (HCC) Other closed nondisplaced fracture of proximal end of right humerus with routine healing, subsequent encounter [facility]* Diagnosis Compression fracture of body of thoracic vertebra (HCC) Other closed nondisplaced fracture of proximal end of right humerus with routine healing, subsequent encounter documented in this encounter [facility]* Diagnosis Encounter for screening mammogram for breast cancer [facility]* Diagnosis Compression fracture of body of thoracic vertebra (HCC) Other closed nondisplaced fracture of proximal end of right humerus with routine healing, subsequent encounter documented in this encounter [facility] note* Diagnosis Pulmonary emphysema, unspecified emphysema type (HCC) documented in this encounter [facility] note* Diagnosis Moderate episode of recurrent major depressive disorder (HCC) PAUL (generalized anxiety disorder) Generalized anxiety disorder documented in this encounter [facility] note* Diagnosis Moderate episode of recurrent major depressive disorder (HCC) PAUL (generalized anxiety disorder) Generalized anxiety disorder documented in this encounter [facility] note* Diagnosis Medication management Encounter for long-term (current) use of other medications [facility]* Diagnosis Moderate episode of recurrent major depressive disorder (HCC)- Primary Panlobular emphysema (HCC) Other emphysema Chronic respiratory failure with hypoxia ([facility]) Chronic respiratory failure documented in this encounter [facility] note* Diagnosis Major depression, recurrent, chronic (HCC) Major depressive disorder, recurrent episode, unspecified documented in this encounter [facility] note* Diagnosis Bronchitis- Primary Bronchitis, not specified as acute or chronic COPD exacerbation ([facility]) Obstructive chronic bronchitis with exacerbation documented in this encounter [facility] note* Diagnosis Compression fracture of body of thoracic vertebra (HCC) Other closed nondisplaced fracture of proximal end of right humerus with routine healing, subsequent encounter [facility]* Diagnosis Herpes zoster without complication- Primary Herpes zoster without mention of complication documented in this encounter [facility] note* Diagnosis Compression fracture of body of thoracic vertebra (HCC) Other closed nondisplaced fracture of proximal end of right humerus with routine healing, subsequent encounter [facility]* Diagnosis Moderate episode of recurrent major depressive disorder (HCC) documented in this encounter [facility] note* Diagnosis Falls frequently- Primary Personal history of fall Near syncope Closed head injury, initial encounter Fall, initial encounter Compression fracture of T5 vertebra, initial encounter ([facility]) Compression fracture of T7 vertebra, initial encounter ([facility]) Compression fracture of T8 vertebra, initial encounter ([facility]) Compression fracture of L1 vertebra, initial encounter ([facility]) Severe malnutrition (CMS/HCC) ([facility]) Nutritional marasmus Chronic back pain Unspecified backache COPD (chronic obstructive pulmonary disease) (HCC) Chronic airway obstruction, not elsewhere classified Supplemental oxygen dependent Dependence on supplemental oxygen Unintentional weight loss Loss of weight Debility Unspecified debility documented in this encounter [facility] note* Diagnosis OPENED IN ERROR- Primary To allow closing an encounter opened in error (used in SmartSet) [facility]* Diagnosis Pathological fracture of vertebra due to other osteoporosis with routine healing, subsequent encounter- Primary documented in this encounter [facility]* Diagnosis Pulmonary emphysema, unspecified emphysema type (HCC) [facility]* Diagnosis Osteoporotic vertebral collapse, with routine healing, subsequent encounter- Primary [facility]* Diagnosis Fall, initial encounter- Primary Compression fracture of body of thoracic vertebra (HCC) documented in this encounter [facility] note* Diagnosis Moderate episode of recurrent major depressive disorder (HCC) [facility]* Diagnosis Compression fracture of body of thoracic vertebra (HCC) Other closed nondisplaced fracture of proximal end of right humerus with routine healing, subsequent encounter [facility]* Diagnosis Pulmonary emphysema, unspecified emphysema type (HCC) [facility]* Diagnosis Osteoporotic vertebral collapse, with routine healing, subsequent encounter- Primary [facility]* Diagnosis Panlobular emphysema (HCC) Other emphysema Compression fracture of body of thoracic vertebra (HCC) Other closed nondisplaced fracture of proximal end of right humerus with routine healing, subsequent encounter [facility]* Diagnosis Age-related osteoporosis without current pathological fracture Senile osteoporosis [facility]* Diagnosis Panlobular emphysema (HCC) Other emphysema [facility]* Diagnosis Compression fracture of body of thoracic vertebra (HCC) Other closed nondisplaced fracture of proximal end of right humerus with routine healing, subsequent encounter [facility]* Diagnosis PAUL (generalized anxiety disorder) Generalized anxiety disorder [facility]* Diagnosis Malignant neoplasm of exocervix (HCC)- Primary Malignant neoplasm of exocervix documented in this encounter [facility] note* Diagnosis Fall, initial encounter- Primary Fall, initial encounter Facial laceration, initial encounter Closed fracture of neck of right humerus, initial encounter Humeral head fracture, right, closed, initial encounter Humeral head fracture, right, closed, initial encounter [facility] Diagnosis Compression fracture of body of thoracic vertebra (HCC) Other closed nondisplaced fracture of proximal end of right humerus with routine healing, subsequent encounter documented [facility] encounter [facility]* Diagnosis Moderate episode of recurrent major depressive disorder (HCC) documented [facility] this [facility]* Diagnosis Moderate episode of recurrent major depressive disorder (HCC) PAUL (generalized anxiety disorder) Generalized anxiety disorder documented [facility] this [facility]* Diagnosis Pulmonary emphysema, unspecified emphysema type (HCC) documented in this encounter [facility]* Diagnosis Contusion of face, initial encounter- Primary [facility] Diagnosis Compression fracture of [...] healing, subsequent encounter documented [facility]* Diagnosis Moderate episode of recurrent major depressive disorder (HCC) Compression fracture of body of thoracic vertebra (HCC) Other closed nondisplaced fracture of proximal end of right humerus with routine healing, subsequent encounter [facility]* Diagnosis Panlobular emphysema (HCC)- Primary Other emphysema Moderate episode of recurrent major depressive disorder (HCC) Chronic respiratory failure with hypoxia (HCC) Chronic respiratory failure documented [facility] this encounter [facility]* Diagnosis Compression fracture of body of thoracic vertebra (HCC) Other closed nondisplaced fracture of proximal end of right humerus with routine healing, subsequent encounter documented in this encounter [facility]* Diagnosis Chronic respiratory failure with hypoxia (HCC)- Primary Chronic respiratory failure Centrilobular emphysema (HCC) Other emphysema Adult failure to thrive Severe protein-calorie malnutrition (HCC) Other severe protein-calorie malnutrition documented [facility] this encounter [facility]* Diagnosis Chronic obstructive pulmonary disease, unspecified COPD type (HCC)- Primary Severe malnutrition (CMS/HCC) (HCC) Nutritional marasmus documented in this encounter [facility] note* Diagnosis Adult failure to thrive- [...] risk for delirium documented in this encounter [facility] note* Diagnosis PAUL (generalized anxiety disorder) Generalized anxiety disorder documented in this encounter [facility] note* Diagnosis Hospital discharge follow-up- Primary Other follow-up examination Acute on chronic respiratory failure with hypoxia (HCC) Centrilobular emphysema (HCC) Aspiration pneumonia of left lower lobe, unspecified aspiration pneumonia type (HCC) Chronic obstructive pulmonary disease with acute lower respiratory infection (HCC) History of tobacco abuse Severe malnutrition (CMS/HCC) (HCC) Nutritional marasmus documented in this encounter [facility] note* Diagnosis Compression fracture of body of thoracic vertebra (HCC) Other closed nondisplaced fracture of proximal end of right humerus with routine healing, subsequent encounter documented in this encounter [facility] note* Diagnosis Other specified complication of vascular prosthetic devices, implants and grafts, initial encounter ([facility])- Primary Poor venous access documented in this encounter [facility] note* Diagnosis Chronic obstructive pulmonary disease with acute lower respiratory infection (HCC) documented in this encounter [facility] Discharge instructions* Attachments The following attachments cannot be sent through Care Everywhere. * Acute Bronchitis Discharge Instructions, Adult ([place]ian) documented in this [facility] Discharge instructions* Attachments The following attachments cannot be sent through Care Everywhere. * Closed Head Injury Discharge Instructions ([place]ian) documented in this [facility] for referral (narrative)* Diagnostic Procedure Only (Routine) - Pending Review Specialty Diagnoses / Procedures Referred By Lisa french Referred To Contact [facility] Diagnoses Encounter for screening mammogram for breast cancer Procedures [facility] SCREENING SCREENING MAMMOGRAPHY BI 2-VIEW BREAST INC Herminia Perkins MD [address] [place] [id number] [facility] [address] [place] [address] Referral ID Status Reason Start Date Expiration Date Visits Requested Visits Authorized [id number] Pending Review Auto-Generat ed Referral 07/14/2022 08/13/2023 1 1 [facility] for referral (narrative)* Diagnostic Procedure Only (Routine) - Pending Review Specialty Diagnoses / Procedures Referred By Pieterac t Referred To Contact [facility] Diagnoses Encounter for screening mammogram for breast cancer Procedures [facility] SCREENING SCREENING MAMMOGRAPHY BI 2-VIEW BREAST INC CAD Herminia Case MD [address] [place] [id number] [facility] [address] [place] [address] Referral ID Status Reason Start Date Expiration Date Visits Requested Visits Authorized [id number] Pending Review Auto-Generat ed Referral 06/22/2023 07/21/2024 1 1 T [facility] for visit Narrative* Treatment Plan (Routine) Status Reason Specialty Diagnoses / Procedures Referred By Contact Referred To Contact Authorized Diagnoses Malignant neoplasm of exocervix (HCC) Poor venous access Ziyad Menendez MD [address] [facility] [address] [facility] [address] [place] [address] [facility] [address] [place] [address] [employer] Work Phone: Reason for visit Narrative* Treatment Plan and Therapy Plan (Routine) Status Reason Specialty Diagnoses / Procedures Referred By Contact Referred To Contact Authorized Diagnoses Malignant neoplasm of exocervix (HCC) Poor venous access Ziyad Menendez MD [address] [facility] [address] [place] [address] [facility] [address] [place] [address] [employer] Work Phone: Reason for visit Narrative* Treatment Plan and Therapy Plan (Routine) - Pending Review Specialty Diagnoses / Procedures Referred By Lisa french Referred To Contact Diagnoses Poor venous access Other specified complication of vascular prosthetic devices, implants and grafts, initial encounter (HCC) Herminia Case MD [address] [place] [address] [facility] Med Onc [address] [place] [address] Referral ID Status Reason Start Date Expiration Date V isits Requested Visits Authorized [id number] Pending Review 08/06/2021 08/06/2022 1 1 [facility] Phone: Reason for visit Narrative* Imaging (Routine) - Closed Specialty Diagnoses / Procedures Referred By Lisa french Referred To Contact Radiology Diagnoses Chronic obstructive pulmonary disease with acute lower respiratory infection (HCC) Procedures CT chest wo IV contrast Elyssa Tesfaye NP [address] [place] [address] Phone: tel: fax: Referral ID Status Reason Start Date Expiration Date Visits Re quested Visits Authorized [id number] Closed 08/20/2024 08/20/2025 1 1 [facility] Variable Discharge Instructions * Pharmacy* Estee Pantoja RPH [...] doctor for further instructions HERMINIA CASE MD [phone] RED ZONE: Medical Alert Severe or unrelieved shortness of breath at rest Unrelieved chest pain Not able to do any activity because of breathing Not able to sleep because of breathing Confusion or you can't think clearly This Means You Should Call 911 Immediately documented in this encounter* Attachments The following attachments cannot be sent through Care Everywhere. * Compression Fracture: Spine ([place]ian) documented in this encounter* Instructions* Ankit Zaragoza [...] Real RN - 11/05/2019 Please bring your avocarrot Variable Surgical Information folder on the day of [...] through Care Everywhere. * Hysterectomy: Abdominal: Pre-op ([place]ian) * Oophorectomy: Pre-op ([place]ian) documented in this encounter* Instructions* Tani Joseph MD - 11/09/2019 Come back tomorrow for your ultrasound. If you have any chest pain or shortness of breath return tot emergency department immediately * Attachments The following attachments cannot be sent through Care Everywhere. * Edema: Leg and Ankle ([place]ian) documented in this encounter* Instructions* Jaspreet Lam [...] call and ask for the Interventional Radiologist director of occupational health. IF YOU REPORT TO AN EMERGENCY ROOM, DOCTOR'S OFFICE OR HOSPITAL WITHIN 24 HOURS AFTER YOUR PROCEDURE, BRING THIS SHEET AND YOUR AFTER VISIT SUMMARY WITH YOU AND GIVE IT TO THE PHYSICIAN OR NURSE ATTENDING YOU.Implanted Port: What to Expect at Home Your Recovery Questions: [phone] You have had a procedure to implant [...] (before 7am or after 5 pm) call [phone] and ask for the Interventional Radiologist director of occupational health. Where can you learn more? Go to [email or web address] and sign in to your [employer] account. Enter M256 in the Search Health Information box to learn more about Implanted Port: What to Expect at Home. If you do not have an account, please click on the Sign Up Now link. Current as of: August 15, 2015 Content Version: 11.2 [employer]. Care instructions adapted under license by [employer]. If youhave questions about a medical condition or this instruction, always ask your healthcare professional. [employer] disclaims any warranty or liability for your use of this information. documented in this encounter* Attachments The following attachments cannot be sent through Care Everywhere. * COPD: General Info ([place]ian) * Bronchitis ([place]ian) documented in this encounter* Discharge Instr - [...] Your home care will be provided by: [facility] [phone] * Attachments The following attachments cannot be sent through Care Everywhere. * Ischemic Stroke: General Info ([place]ian) documented in this encounter History of Present Illness * Phillip Snyder RCP - 08/04/2019 1:28 PM EDT [facility] Respiratory Care Department Progress Note SpO2 at [...] EDT Hospitalist Progress Note 08/03/2019 2:56 PM [phone]: Please page me ([phone]) for patient care issues. [phone]: Please page IMS night Hospitalist for any issues. Subjective: Admit Date: 08/02/2019 PCP: HERMINIA CASE MD Room#: [id number]/[id number] Interval History: No overnight issues. Feels better. [...] to improve Roland Ortiz DO [facility] Medical Services PAGER: [phone] documented in this encounter* Brandy Del Real [...] draw, CBCdiff/CMP/Mag from port to [facility]. Pt just came from office [...] Date: 11/21/2019 PCP: HERMINIA CASE MD Room#: 474/[id number] Interval History: c/o feeling very anxious. Doesn't [...] 11/23/2019 11:46 AM EDT Physical Therapy Facility/Department: [facility] Initial Assessment NAME: Gonzalo Deluca [...] test, Allergic rhinitis, Arthritis, Asthma, Bronchitis, Cancer ([facility]), Cervical cancer ([facility]), Chest pain, COPD (chronic obstructive pulmonary disease) ([facility]), DDD (degenerative disc disease), cervical, Defect, retina, with detachment, DJD (degenerative joint disease), lumbar, Emphysema lung ([facility]), Former smoker, Hematuria, Hypokalemia, Lung nodules, Osteoporosis, Palpitations, Pneumonia, Recurrent major depression ([facility]), Sciatica, Thoracic compressionfracture ([facility]), and Vitamin D deficiency. has a past [...] Assistance: Independent(no device) Transfer Assistance: Independent Active Supervisor Metal Cans: Yes Mode of Transportation: Car Occupation: On [...] Left in bed, Nurse notified AM-PAC Score [facility] Inpatient Mobility Raw Score : 21 (11/23/19 1141) [facility] Inpatient T-Scale Score : 50.25 (11/23/19 1141) Mobility Inpatient CMS 0-100% Score: 28.97 (11/23/19 114) Mobility Inpatient CMS G-Code Modifier : CJ (11/23/19 114) [facility] Mobility Inpatient How much difficulty turning over [...] climbing 3-5 steps with a railing?: Total [facility] Inpatient Mobility Raw Score : 21 [facility] Inpatient T-Scale Score : 50.25 Mobility Inpatient [...] numbness/tingling/weakness, CT negative and MRI pending. Exam: [facility] Assistance / Modification: mod I OT Education: [...] Chest pain, COPD (chronic obstructive pulmonary disease) ([facility]), DDD (degenerative disc disease), cervical, Defect, retina, with detachment, DJD (degenerative joint disease), lumbar, Emphysema lung ([facility]), Former smoker, Hematuria, Hypokalemia, Lung nodules, Osteoporosis, Palpitations, Pneumonia, Recurrent major depression ([facility]), Sciatica, Thoracic compressionfracture ([facility]), and Vitamin D deficiency. has a past [...] Assistance: Independent(no device) Transfer Assistance: Independent Active Supervisor Metal Cans: Yes Mode of Transportation: Car Occupation: On [...] 11/22/2019 2:59 PM EDT Physical Therapy Facility/Department: [facility] Initial Assessment NAME: Gonzalo Deluca [...] Granados OT * Aparna Walter APRN - CARD PLACER - 11/22/2019 2:07 PM EDT Hospitalist Progress Note 11/22/2019 2:07 PM Subjective: Admit Date: 11/21/2019 PCP: HERMINIA CASE MD Room#: [id number] Interval History: No overnight issues; feeling much [...] head/neck and MRI of the brain pending. MARINE CARGO INSPECTOR screened; no diet texture change recommended at [...] Accumulation: 1 - Mild Extremities(+1-2 RLE Edema) Ict Help Desk Technician Strength: Not Performed Estimated Daily Nutrient Needs: Energy (kcal): 4095-6656 kcals; Weight Used for Energy Requirements: [place](57kg) Protein (g): 57-68(1-1.2); Weight Used for Protein Requirements: [place](57kg) Fluid (ml/day): 1710 ml/day or per MD; Weight Used for Fluid Requirements: [place] Nutrition Related Findings: +1-2 RLE edema; K+ [...] lb (70.3 kg)(150-155# in the last month) [place] Body Weight: 125 lbs; % [place] Body Weight 124.8 % BMI: 26 Adjusted [...] current diet Contact: [phone] * Amelie Esquivel, MARINE CARGO INSPECTOR - 11/22/2019 9:57 AM EDT Speech Language Pathology Patient is on a General diet. Completed speech orders as per stroke protocol. Spoke with pt and completed speech screening. No obvious facial weakness, dysarthria, or language deficits. Amelie Esquivel M.A.[facility]/MARINE CARGO INSPECTOR Speech-Language Pathologist documented in this encounter* Florencia [...] time restraints. Wants to be scheduled in [place] for cathflo this week. Pham aware and [...] FoundDocuments on File Type Date Recorded 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 Advance Directives and Living Will Power of Wood Flooring Specialist Latest Code Status on File Code Status [...] Documents on File Type Date Recorded 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 ACP-Advance Directive ACP-Power of Wood Flooring Specialist Latest Code Status on File Code Status Date Activated Date Inactivated Comments Full Code 11/06/2019 12:37 PM 11/08/2019 9:35 PM Full Code 11/06/2019 7:02 AM 11/06/2019 12:22 PM Full Code 08/03/2019 5:57 PM 08/04/2019 5:09 PM Full Code 10/17/2018 1:23 AM 10/18/2018 8:29 PM Full Code 06/05/2018 7:30 AM 06/07/2018 7:14 PM Documents on File Type Date Recorded 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 ACP-Advance Directive ACP-Power of Wood Flooring Specialist Latest Code Status on File Code Status [...] Documents on File Type Date Recorded 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 Advance Directive(s) 09/12/2020 12:26 PM Documents on File Type Date Recorded 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 Advance Directive(s) 09/12/2020 12:26 PM [...] Documents on File Type Date Recorded 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 DNR (Do Not Resuscitate) 07/31/2024 3:36 PM [place] DNR Form Date Activated Date Inactivated Comments [...] Documents on File Type Date Recorded 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 DNR (Do Not Resuscitate) 07/31/2024 3:36 PM [place] DNR Form Date Activated Date Inactivated Comments [...] Lower Extremity Venous Right Tani Joseph MD [address] [place] [address] Status Reason Specialty Diagnoses / Procedures Referre d By Contact Referred To Contact Closed Radiology Diagnoses Malignant neoplasm of exocervix (HCC) Procedures XA SPECIAL ANGIOGRAPHY PROCEDURE Ziyad Menendez MD [address] [facility] [place] [address] Status Reason Specialty Diagnoses / Procedures Referre d By Contact Referred To Contact Closed Radiology Diagnoses Malignant neoplasm of exocervix (HCC) Lung nodule seen on imaging study Procedures CT CHEST ABDOMEN PELVIS W CONTRAST Ziyad Menendez MD [address] [facility] [place] [address] Status Reason Specialty Diagnoses / Procedures Referre d By Contact Referred To Contact Open Radiology Diagnoses Abnormal CT of the chest Procedures CT Chest W Contrast Ziyad Menendez MD [address] [facility] [place] [address] Status Reason Specialty Diagnoses / Procedures Referred By Contact Referred To Contact Open Specialty Services Required Orthopedic Surgery Diagnoses Closed fracture of coccyx, initial encounter ([facility]) Lauren Lutz APRN - CARD PLACER [address] [place] [address] [facility] [address] [address] [place] [address] Scheduling Instructions [facility] Orthopedics [facility] [address] [place] [address] Specialty Diagnoses / Procedures Referred By Lisa t Referred To Contact Pulmonary and Critical Care Medicine Diagnoses Panlobular emphysema (HCC) Chronic respiratory failure with hypoxia (HCC) Procedures CONSULT TO PULM/CRITICAL CARE OFFICE/OUTPATIENT [facility] 60-74 MINUTES Herminia Case MD [address] [place] [address] Referral ID Status Reason Start Date Expiration Date Visits Requested Visits Authorized [id number] Pending Review PCP Requested Referral 08/06/2021 08/06/2022 1 1 Specialty Diagnoses / Procedures Referred By Lisa t Referred To Contact BR IMAGING Diagnoses Encounter for screening mammogram for malignant neoplasm of breast Procedures PAOLO SCREENING W CARON SCREENING DIGITAL BREAST TOMOSYNTHESIS BI SCREENING MAMMOGRAPHY BI 2-VIEW BREAST INC CAD Herminia Case MD [address] [place] [address] [facility] [address] [place] [address] Referral ID Status Reason Start Date Expiration Date Visits Requested Visits Authorized [id number] Pending Review Auto-Generat ed Referral 08/06/2021 09/05/2022 1 1 Specialty Diagnoses / Procedures Referred By Contac t Referred To Contact Radiology Diagnoses Malignant neoplasm of exocervix (HCC) Abnormal chest CT Procedures CT Chest W Contrast Ziyad Menendez MD [address] [facility] [place] [address] Referral ID Status Reason Start Date Expiration Date Visits Re quested Visits Authorized [id number] Closed 09/17/2021 09/17/2022 1 1 Specialty Diagnoses / Procedures Referred By Contac t Referred To Contact Gena Michaels APRN.CARD PLACER [address] [place] [address] Referral ID Status Reason Start Date Expiration Date V isits Requested Visits Authorized [id number] Pending Review 1 1 Specialty Diagnoses / Procedures Referred By Contac t Referred To Contact Radiology Diagnoses Malignant neoplasm of exocervix (HCC) Procedures CT chest wo IV contrast Kisha Pepe APRN - [facility] [address] [facility] [address] [place] [address] Referral ID Status Reason Start Date Expiration Date V isits Requested Visits Authorized [id number] Pending Review 10/20/2022 04/18/2023 1 1 Specialty Diagnoses / Procedures Referred By Contac t Referred To Contact Diagnoses Family history of breast cancer Malignant neoplasm of exocervix (HCC) Procedures CONSULT TO MEDICAL GENETICS - CANCER MEDICAL GENETICS COUNSELING EACH 30 MINUTES Herminia Case MD [address] [place] [address] [facility] [place] [address] [facility] [place] [address] Referral ID Status Reason Start Date Expiration Date Visits Requested Visits Authorized [id number] Pending Review PCP Requested Referral Auto-Generate d [...] venous access Ziyad Menendez MD [address] [facility] [place] [address] [facility] [address] [place] [address] Reason Comments Fall Elbow Pain Tailbone Pain [...] Chest W Contrast Ziyad Menendez MD [address] [facility] [place] [address] Referral ID Status Reason Start Date Expiration Date Visits Re quested Visits Authorized [id number] Closed 09/17/2021 09/17/2022 1 1 Reason Comments [...] intertrochanteric fracture of left femur, initial encounter ([facility]) Procedures . Raul Whipple DO [address] [place] [address] [facility] Telemetry [address] [place] [id number] Referral ID Status Reason Start Date Expiration Date Visits Re quested Visits Authorized [id number] 1 1 Reason Onset Date Comments Refill [...] encounter Lumbar compression fracture, closed, initial encounter ([facility]) Procedures . Lauren Serna MD [address] [facility] [address] [place] [address] [address] Referral ID Status Reason Start Date Expiration Date Visits Re quested Visits Authorized [id number] 1 1 Reason Onset Date Comments Refill [...] 08/20/2023 Reason Comments Electronic Communication FAX from [place] [facility] is going to be coming [...] Nickolas Marrero MD [address] [place] [address] [facility] 2[address] Cardiac Pcu [address] [place] [address] Referral ID Status Reason Start Date Expiration Date Visits Re quested Visits Authorized [id number] 1 1 Reason Onset Date Comments Opened In Error 10/06/2023 Reason Comments Home Care Physical therapy del ayed 1 week Reason Onset Date Comments Home Care Management 10/06/2023 Home care C ertification Form [facility] .For cert dates 09/26/2023 - 11/24/2023 that were signed on 10/10/2023.[facility] home health 485 form / care plan [...] To Contact Diagnoses Fall, initial encounter Procedures [facility] [phone] ...[facility] Dual Complete active per [employer] eff 03/21/22 ...auth required ...pending auth ref# [id number] ...UM to fax clinical to [phone] Dianne Dale [address] [place] [address] [facility] Emergency Dept [address] [place] [address] Referral ID Status Reason Start Date Expiration Date Visits Re quested Visits Authorized [id number] 1 1 Reason Onset Date Comments Refill [...] initial encounter Procedures . Lauren Serna MD [address] [place] [address] Phone: tel: fax: [facility] Cardiac Progressive Care Unit PCU [address] [place] [address] Phone: tel: Referral ID Status Reason Start Date Expiration Date Visits Re quested Visits Authorized [id number] 1 1 Reason Comments Hospital Follow-up COPD,PSA/MSSA/STREP LRTIESTABLISH PULM OUTPATIENT... Reason Onset Date Comments Refill Request 08/18/2024 Reason Onset Date Comments Refill Request 08/22/2024 Reason Comments OP Infusion INFORMATION SOURCE (unrecogn ized section and content) DATE CREATED AUTHOR 10/12/2019 [facility] DATE CREATED AUTHOR AUTHOR'S ORGANIZ ATION 11/14/2019 [facility] DATE CREATED AUTHOR AUTHOR'S ORGANIZ ATION 06/13/2020 [facility] DATE CREATED AUTHOR AUTHOR'S ORGANIZ ATION 09/13/2020 [facility] DATE CREATED AUTHOR AUTHOR'S ORGANIZ ATION 12/19/2021 [facility] DATE CREATED AUTHOR AUTHOR'S ORGANIZ ATION 07/31/2024 [facility] DATE CREATED AUTHOR AUTHOR'S ORGANIZ ATION 10/20/2024 [facility] DATE CREATED AUTHOR AUTHOR'S ORGANIZ ATION 11/24/2024 [facility] Ordered Prescriptions (unrec ognized section and content) [...] Barroso RN) 2105 (Given - Provider: Tona Braroso RN) buPROPion XL (Wellbutrin XL) 24 hr [...] time)1300 (Not Given - Provider: Kate Stover [facility] - Reason: Patient/family refused - Comment: pt did not feel the need fortx at this time)210 (Not Given - Provider: Emanuel Le [facility] - Reason: Patient/family refused) 0820 (Given - Provider: Yesenia Salas [facility]) ipratropium-albuterol (Duo-Neb) 0.5-2.5 mg/3 mL nebulizer [...] - Provider: Cheryl Valdivia RN) HYDROcodone-acetaminophe n (Tyrone) 5-325 MG per tablet 1 tablet (CANCELED)(Linked [...] pupils, RR < 8; notify primary team director of occupational health if used ondansetron (Zofran) injection 4 mg(Linked [...] sources in 24 hours. Group 2: HYDROcodone-acetaminophen (Tyrone) 5-325 MG per tablet 1 tablet (CANCELED)Jump to med 1 tablet, Oral, Every 4 hours PRN, moderate pain (4-6), Starting on Olga 02/17/23 at 0706, Maximum dose of acetaminophen is 4000 mg from all sources in 24 hours. Or HYDROcodone-acetaminophen (Tyrone) 5-325 MG per tablet 2 tablet (CANCELED) [...] sodium chloride 0.9 % 250 mL IVPB (ADD-[place]) (COMPLETED) 500 mg, IntraVENous, Administer over 60 Minutes, Once, On 08/07/23 at 1520, For 1 dose, ADD-[place] bag, Suspected Indication (Select all that apply): Upper Respiratory Infection 5435 (New Bag - Prov ider: Carolyn Monson [...] Maeve Ryan, CHARLEY) 0759 (Given - Provider: Phillip Dee RN) [...] sedation for opioid reversal - MUST notify director of occupational health provider immediately after first dose, may give [...] (Medication Linda lied - Provider: Ray Isaac RN)6563 (Due: Medication Removed - Provider: Automatic Discharge [...] Crawford RCP)1351 (Given - Provider: Shala [place] LITIGATION SECRETARY)2030 (Given - Provider: Kaykay Ambriz RCP) 0840 [...] Tue05/21/22 at 0800 1043 (Given - Provider: Nicoel Swift RN) 0942 (Given - Provider: Nicole [...] DICK GuyP)2026 (Given - Provider: Luz Pruett, SANDER SETTER) 0859 (Given - Provider: Kimber Alvarado LITIGATION SECRETARY) aspirin EC tablet 81 mg 81 mg, [...] sedation for opioid reversal - MUST notify director of occupational health provider immediately after first dose, may give [...] - Provider: Sadie Rodriguez RN) sodium chloride ([place]) 0.65 % nasal spray 2 spray 2 [...] or prosecute any alcohol or drug abuse patient.[facility] Center[facility] the event this information is protected by the Federal Confidentiality of Alcohol and Drug Abuse Patient Records regulations: The Federal rules restrict any use of the information to criminally investigate or prosecute any alcohol or drug abuse patient.[facility] Center[facility] the event this information is protected by the Federal Confidentiality of Alcohol and Drug Abuse Patient Records regulations: The Federal rules restrict any use of the information to criminally investigate or prosecute any alcohol or drug abuse patient.[facility] Center[facility] the event this information is protected by the Federal Confidentiality of Alcohol and Drug Abuse Patient Records regulations: The Federal rules restrict any use of the information to criminally investigate or prosecute any alcohol or drug abuse patient.[facility] Center[facility] the event this information is protected by the Federal Confidentiality of Alcohol and Drug Abuse Patient Records regulations: The Federal rules restrict any use of the information to criminally investigate or prosecute any alcohol or drug abuse patient.[facility] CenterIn the event this information is protected by the Federal Confidentiality of Alcohol and Drug Abuse Patient Records regulations: The Federal rules restrict any use of the information to criminally investigate or prosecute any alcohol or drug abuse patient.[facility] CenterIn the event this information is protected by the Federal Confidentiality of Alcohol and Drug Abuse Patient Records regulations: The Federal rules restrict any use of the information to criminally investigate or prosecute any alcohol or drug abuse patient.[facility] CenterIn the event this information is protected by the Federal Confidentiality of Alcohol and Drug Abuse Patient Records regulations: The Federal rules restrict any use of the information to criminally investigate or prosecute any alcohol or drug abuse patient.[facility] CenterIn the event this information is protected by the Federal Confidentiality of Alcohol and Drug Abuse Patient Records regulations: The Federal rules restrict any use of the information to criminally investigate or prosecute any alcohol or drug abuse patient.[facility] CenterIn the event this information is protected by the Federal Confidentiality of Alcohol and Drug Abuse Patient Records regulations: The Federal rules restrict any use of the information to criminally investigate or prosecute any alcohol or drug abuse patient.[facility] CenterIn the event this information is protected by the Federal Confidentiality of Alcohol and Drug Abuse Patient Records regulations: The Federal rules restrict any use of the information to criminally investigate or prosecute any alcohol or drug abuse patient.[facility] CenterIn the event this information is protected by the Federal Confidentiality of Alcohol and Drug Abuse Patient Records regulations: The Federal rules restrict any use of the information to criminally investigate or prosecute any alcohol or drug abuse patient.[facility] CenterIn the event this information is protected by the Federal Confidentiality of Alcohol and Drug Abuse Patient Records regulations: The Federal rules restrict any use of the information to criminally investigate or prosecute any alcohol or drug abuse patient.[facility] CenterIn the event this information is protected by the Federal Confidentiality of Alcohol and Drug Abuse Patient Records regulations: The Federal rules restrict any use of the information to criminally investigate or prosecute any alcohol or drug abuse patient.[facility] CenterIn the event this information is protected by the Federal Confidentiality of Alcohol and Drug Abuse Patient Records regulations: The Federal rules restrict any use of the information to criminally investigate or prosecute any alcohol or drug abuse patient.[facility] CenterIn the event this information is protected by the Federal Confidentiality of Alcohol and Drug Abuse Patient Records regulations: The Federal rules restrict any use of the information to criminally investigate or prosecute any alcohol or drug abuse patient.[facility] CenterIn the event this information is protected by the Federal Confidentiality of Alcohol and Drug Abuse Patient Records regulations: The Federal rules restrict any use of the information to criminally investigate or prosecute any alcohol or drug abuse patient.[facility] CenterIn the event this information is protected by the Federal Confidentiality of Alcohol and Drug Abuse Patient Records regulations: The Federal rules restrict any use of the information to criminally investigate or prosecute any alcohol or drug abuse patient.[facility] CenterIn the event this information is protected by the Federal Confidentiality of Alcohol and Drug Abuse Patient Records regulations: The Federal rules restrict any use of the information to criminally investigate or prosecute any alcohol or drug abuse patient.[facility] CenterIn the event this information is protected by the Federal Confidentiality of Alcohol and Drug Abuse Patient Records regulations: The Federal rules restrict any use of the information to criminally investigate or prosecute any alcohol or drug abuse patient.[facility] CenterIn the event this information is protected by the Federal Confidentiality of Alcohol and Drug Abuse Patient Records regulations: The Federal rules restrict any use of the information to criminally investigate or prosecute any alcohol or drug abuse patient.[facility] CenterIn the event this information is protected by the Federal Confidentiality of Alcohol and Drug Abuse Patient Records regulations: The Federal rules restrict any use of the information to criminally investigate or prosecute any alcohol or drug abuse patient.[facility] CenterIn the event this information is protected by the Federal Confidentiality of Alcohol and Drug Abuse Patient Records regulations: The Federal rules restrict any use of the information to criminally investigate or prosecute any alcohol or drug abuse patient.[facility] CenterIn the event this information is protected by the Federal Confidentiality of Alcohol and Drug Abuse Patient Records regulations: The Federal rules restrict any use of the information to criminally investigate or prosecute any alcohol or drug abuse patient.[facility] CenterIn the event this information is protected by the Federal Confidentiality of Alcohol and Drug Abuse Patient Records regulations: The Federal rules restrict any use of the information to criminally investigate or prosecute any alcohol or drug abuse patient.[facility] CenterIn the event this information is protected by the Federal Confidentiality of Alcohol and Drug Abuse Patient Records regulations: The Federal rules restrict any use of the information to criminally investigate or prosecute any alcohol or drug abuse patient.[facility] CenterIn the event this information is protected by the Federal Confidentiality of Alcohol and Drug Abuse Patient Records regulations: The Federal rules restrict any use of the information to criminally investigate or prosecute any alcohol or drug abuse patient.[facility] CenterIn the event this information is protected by the Federal Confidentiality of Alcohol and Drug Abuse Patient Records regulations: The Federal rules restrict any use of the information to criminally investigate or prosecute any alcohol or drug abuse patient.[facility] CenterIn the event this information is protected by the Federal Confidentiality of Alcohol and Drug Abuse Patient Records regulations: The Federal rules restrict any use of the information to criminally investigate or prosecute any alcohol or drug abuse patient.[facility] CenterIn the event this information is protected by the Federal Confidentiality of Alcohol and Drug Abuse Patient Records regulations: The Federal rules restrict any use of the information to criminally investigate or prosecute any alcohol or drug abuse patient.[facility] CenterIn the event this information is protected by the Federal Confidentiality of Alcohol and Drug Abuse Patient Records regulations: The Federal rules restrict any use of the information to criminally investigate or prosecute any alcohol or drug abuse patient.[facility] CenterIn the event this information is protected by the Federal Confidentiality of Alcohol and Drug Abuse Patient Records regulations: The Federal rules restrict any use of the information to criminally investigate or prosecute any alcohol or drug abuse patient.[facility] CenterIn the event this information is protected by the Federal Confidentiality of Alcohol and Drug Abuse Patient Records regulations: The Federal rules restrict any use of the information to criminally investigate or prosecute any alcohol or drug abuse patient.[facility] CenterIn the event this information is protected by the Federal Confidentiality of Alcohol and Drug Abuse Patient Records regulations: The Federal rules restrict any use of the information to criminally investigate or prosecute any alcohol or drug abuse patient.[facility] CenterIn the event this information is protected by the Federal Confidentiality of Alcohol and Drug Abuse Patient Records regulations: The Federal rules restrict any use of the information to criminally investigate or prosecute any alcohol or drug abuse patient.[facility] CenterIn the event this information is protected by the Federal Confidentiality of Alcohol and Drug Abuse Patient Records regulations: The Federal rules restrict any use of the information to criminally investigate or prosecute any alcohol or drug abuse patient.[facility] CenterIn the event this information is protected by the Federal Confidentiality of Alcohol and Drug Abuse Patient Records regulations: The Federal rules restrict any use of the information to criminally investigate or prosecute any alcohol or drug abuse patient.[facility] CenterIn the event this information is protected by the Federal Confidentiality of Alcohol and Drug Abuse Patient Records regulations: The Federal rules restrict any use of the information to criminally investigate or prosecute any alcohol or drug abuse patient.[facility] CenterIn the event this information is protected by the Federal Confidentiality of Alcohol and Drug Abuse Patient Records regulations: The Federal rules restrict any use of the information to criminally investigate or prosecute any alcohol or drug abuse patient.[facility] CenterIn the event this information is protected by the Federal Confidentiality of Alcohol and Drug Abuse Patient Records regulations: The Federal rules restrict any use of the information to criminally investigate or prosecute any alcohol or drug abuse patient.[facility] CenterIn the event this information is protected by the Federal Confidentiality of Alcohol and Drug Abuse Patient Records regulations: The Federal rules restrict any use of the information to criminally investigate or prosecute any alcohol or drug abuse patient.[facility] CenterIn the event this information is protected by the Federal Confidentiality of Alcohol and Drug Abuse Patient Records regulations: The Federal rules restrict any use of the information to criminally investigate or prosecute any alcohol or drug abuse patient.[facility] CenterIn the event this information is protected by the Federal Confidentiality of Alcohol and Drug Abuse Patient Records regulations: The Federal rules restrict any use of the information to criminally investigate or prosecute any alcohol or drug abuse patient.[facility] CenterIn the event this information is protected by the Federal Confidentiality of Alcohol and Drug Abuse Patient Records regulations: The Federal rules restrict any use of the information to criminally investigate or prosecute any alcohol or drug abuse patient.[facility] CenterIn the event this information is protected by the Federal Confidentiality of Alcohol and Drug Abuse Patient Records regulations: The Federal rules restrict any use of the information to criminally investigate or prosecute any alcohol or drug abuse patient.[facility] CenterIn the event this information is protected by the Federal Confidentiality of Alcohol and Drug Abuse Patient Records regulations: The Federal rules restrict any use of the information to criminally investigate or prosecute any alcohol or drug abuse patient.[facility] CenterIn the event this information is protected by the Federal Confidentiality of Alcohol and Drug Abuse Patient Records regulations: The Federal rules restrict any use of the information to criminally investigate or prosecute any alcohol or drug abuse patient.[facility] CenterIn the event this information is protected by the Federal Confidentiality of Alcohol and Drug Abuse Patient Records regulations: The Federal rules restrict any use of the information to criminally investigate or prosecute any alcohol or drug abuse patient.[facility] CenterIn the event this information is protected by the Federal Confidentiality of Alcohol and Drug Abuse Patient Records regulations: The Federal rules restrict any use of the information to criminally investigate or prosecute any alcohol or drug abuse patient.[facility] CenterIn the event this information is protected by the Federal Confidentiality of Alcohol and Drug Abuse Patient Records regulations: The Federal rules restrict any use of the information to criminally investigate or prosecute any alcohol or drug abuse patient.[facility] CenterIn the event this information is protected by the Federal Confidentiality of Alcohol and Drug Abuse Patient Records regulations: The Federal rules restrict any use of the information to criminally investigate or prosecute any alcohol or drug abuse patient.[facility] CenterIn the event this information is protected by the Federal Confidentiality of Alcohol and Drug Abuse Patient Records regulations: The Federal rules restrict any use of the information to criminally investigate or prosecute any alcohol or drug abuse patient.[facility] CenterIn the event this information is protected by the Federal Confidentiality of Alcohol and Drug Abuse Patient Records regulations: The Federal rules restrict any use of the information to criminally investigate or prosecute any alcohol or drug abuse patient.[facility] CenterIn the event this information is protected by the Federal Confidentiality of Alcohol and Drug Abuse Patient Records regulations: The Federal rules restrict any use of the information to criminally investigate or prosecute any alcohol or drug abuse patient.[facility]In the event this information is protected by the Federal Confidentiality of Alcohol and Drug Abuse Patient Records regulations: The Federal rules restrict any use of the information to criminally investigate or prosecute any alcohol or drug abuse patient.[facility] CenterIn the event this information is protected by the Federal Confidentiality of Alcohol and Drug Abuse Patient Records regulations: The Federal rules restrict any use of the information to criminally investigate or prosecute any alcohol or drug abuse patient.[facility] CenterIn the event this information is protected by the Federal Confidentiality of Alcohol and Drug Abuse Patient Records regulations: The Federal rules restrict any use of the information to criminally investigate or prosecute any alcohol or drug abuse patient.[facility] CenterIn the event this information is protected by the Federal Confidentiality of Alcohol and Drug Abuse Patient Records regulations: The Federal rules restrict any use of the information to criminally investigate or prosecute any alcohol or drug abuse patient.[facility] CenterIn the event this information is protected by the Federal Confidentiality of Alcohol and Drug Abuse Patient Records regulations: The Federal rules restrict any use of the information to criminally investigate or prosecute any alcohol or drug abuse patient.[facility] CenterIn the event this information is protected by the Federal Confidentiality of Alcohol and Drug Abuse Patient Records regulations: The Federal rules restrict any use of the information to criminally investigate or prosecute any alcohol or drug abuse patient.[facility] CenterIn the event this information is protected by the Federal Confidentiality of Alcohol and Drug Abuse Patient Records regulations: The Federal rules restrict any use of the information to criminally investigate or prosecute any alcohol or drug abuse patient.[facility]In the event this information is protected by the Federal Confidentiality of Alcohol and Drug Abuse Patient Records regulations: The Federal rules restrict any use of the information to criminally investigate or prosecute any alcohol or drug abuse patient.[facility] CenterIn the event this information is protected by the Federal Confidentiality of Alcohol and Drug Abuse Patient Records regulations: The Federal rules restrict any use of the information to criminally investigate or prosecute any alcohol or drug abuse patient.[facility] CenterIn the event this information is protected by the Federal Confidentiality of Alcohol and Drug Abuse Patient Records regulations: The Federal rules restrict any use of the information to criminally investigate or prosecute any alcohol or drug abuse patient.[facility] CenterIn the event this information is protected by the Federal Confidentiality of Alcohol and Drug Abuse Patient Records regulations: The Federal rules restrict any use of the information to criminally investigate or prosecute any alcohol or drug abuse patient.[facility]In the event this information is protected by the Federal Confidentiality of Alcohol and Drug Abuse Patient Records regulations: The Federal rules restrict any use of the information to criminally investigate or prosecute any alcohol or drug abuse patient.[facility]In the event this information is protected by the Federal Confidentiality of Alcohol and Drug Abuse Patient Records regulations: The Federal rules restrict any use of the information to criminally investigate or prosecute any alcohol or drug abuse patient.[facility]In the event this information is protected by the Federal Confidentiality of Alcohol and Drug Abuse Patient Records regulations: The Federal rules restrict any use of the information to criminally investigate or prosecute any alcohol or drug abuse patient.[facility]In the event this information is protected by the Federal Confidentiality of Alcohol and Drug Abuse Patient Records regulations: The Federal rules restrict any use of the information to criminally investigate or prosecute any alcohol or drug abuse patient.[facility]In the event this information is protected by the Federal Confidentiality of Alcohol and Drug Abuse Patient Records regulations: The Federal rules restrict any use of the information to criminally investigate or prosecute any alcohol or drug abuse patient.[facility]In the event this information is protected by the Federal Confidentiality of Alcohol and Drug Abuse Patient Records regulations: The Federal rules restrict any use of the information to criminally investigate or prosecute any alcohol or drug abuse patient.[facility] CenterIn the event this information is protected by the Federal Confidentiality of Alcohol and Drug Abuse Patient Records regulations: The Federal rules restrict any use of the information to criminally investigate or prosecute any alcohol or drug abuse patient.[facility]In the event this information is protected by the Federal Confidentiality of Alcohol and Drug Abuse Patient Records regulations: The Federal rules restrict any use of the information to criminally investigate or prosecute any alcohol or drug abuse patient.[facility]In the event this information is protected by the Federal Confidentiality of Alcohol and Drug Abuse Patient Records regulations: The Federal rules restrict any use of the information to criminally investigate or prosecute any alcohol or drug abuse patient.[facility]In the event this information is protected by the Federal Confidentiality of Alcohol and Drug Abuse Patient Records regulations: The Federal rules restrict any use of the information to criminally investigate or prosecute any alcohol or drug abuse patient.[facility]In the event this information is protected by the Federal Confidentiality of Alcohol and Drug Abuse Patient Records regulations: The Federal rules restrict any use of the information to criminally investigate or prosecute any alcohol or drug abuse patient.[facility]In the event this information is protected by the Federal Confidentiality of Alcohol and Drug Abuse Patient Records regulations: The Federal rules restrict any use of the information to criminally investigate or prosecute any alcohol or drug abuse patient.[facility]In the event this information is protected by the Federal Confidentiality of Alcohol and Drug Abuse Patient Records regulations: The Federal rules restrict any use of the information to criminally investigate or prosecute any alcohol or drug abuse patient.[facility]In the event this information is protected by the Federal Confidentiality of Alcohol and Drug Abuse Patient Records regulations: The Federal rules restrict any use of the information to criminally investigate or prosecute any alcohol or drug abuse patient.[facility]In the event this information is protected by the Federal Confidentiality of Alcohol and Drug Abuse Patient Records regulations: The Federal rules restrict any use of the information to criminally investigate or prosecute any alcohol or drug abuse patient.[facility]In the event this information is protected by the Federal Confidentiality of Alcohol and Drug Abuse Patient Records regulations: The Federal rules restrict any use of the information to criminally investigate or prosecute any alcohol or drug abuse patient.[facility]In the event this information is protected by the Federal Confidentiality of Alcohol and Drug Abuse Patient Records regulations: The Federal rules restrict any use of the information to criminally investigate or prosecute any alcohol or drug abuse patient.[facility]In the event this information is protected by the Federal Confidentiality of Alcohol and Drug Abuse Patient Records regulations: The Federal rules restrict any use of the information to criminally investigate or prosecute any alcohol or drug abuse patient.[facility]In the event this information is protected by the Federal Confidentiality of Alcohol and Drug Abuse Patient Records regulations: The Federal rules restrict any use of the information to criminally investigate or prosecute any alcohol or drug abuse patient.[facility]In the event this information is protected by the Federal Confidentiality of Alcohol and Drug Abuse Patient Records regulations: The Federal rules restrict any use of the information to criminally investigate or prosecute any alcohol or drug abuse patient.[facility]In the event this information is protected by the Federal Confidentiality of Alcohol and Drug Abuse Patient Records regulations: The Federal rules restrict any use of the information to criminally investigate or prosecute any alcohol or drug abuse patient.[facility]In the event this information is protected by the Federal Confidentiality of Alcohol and Drug Abuse Patient Records regulations: The Federal rules restrict any use of the information to criminally investigate or prosecute any alcohol or drug abuse patient.[facility]In the event this information is protected by the Federal Confidentiality of Alcohol and Drug Abuse Patient Records regulations: The Federal rules restrict any use of the information to criminally investigate or prosecute any alcohol or drug abuse patient.[facility]In the event this information is protected by the Federal Confidentiality of Alcohol and Drug Abuse Patient Records regulations: The Federal rules restrict any use of the information to criminally investigate or prosecute any alcohol or drug abuse patient.[facility]In the event this information is protected by the Federal Confidentiality of Alcohol and Drug Abuse Patient Records regulations: The Federal rules restrict any use of the information to criminally investigate or prosecute any alcohol or drug abuse patient.[facility]In the event this information is protected by the Federal Confidentiality of Alcohol and Drug Abuse Patient Records regulations: The Federal rules restrict any use of the information to criminally investigate or prosecute any alcohol or drug abuse patient.[facility]In the event this information is protected by the Federal Confidentiality of Alcohol and Drug Abuse Patient Records regulations: The Federal rules restrict any use of the information to criminally investigate or prosecute any alcohol or drug abuse patient.[facility]In the event this information is protected by the Federal Confidentiality of Alcohol and Drug Abuse Patient Records regulations: The Federal rules restrict any use of the information to criminally investigate or prosecute any alcohol or drug abuse patient.[facility]In the event this information is protected by the Federal Confidentiality of Alcohol and Drug Abuse Patient Records regulations: The Federal rules restrict any use of the information to criminally investigate or prosecute any alcohol or drug abuse patient.[facility] CenterIn the event this information is protected by the Federal Confidentiality of Alcohol and Drug Abuse Patient Records regulations: The Federal rules restrict any use of the information to criminally investigate or prosecute any alcohol or drug abuse patient.[facility] CenterIn the event this information is protected by the Federal Confidentiality of Alcohol and Drug Abuse Patient Records regulations: The Federal rules restrict any use of the information to criminally investigate or prosecute any alcohol or drug abuse patient.[facility] [facility] Medical CenterIn the event this information is protected by the Federal Confidentiality of Alcohol and Drug Abuse Patient Records regulations: The Federal rules restrict any use of the information to criminally investigate or prosecute any alcohol or drug abuse patient.[facility] CenterIn the event this information is protected by the Federal Confidentiality of Alcohol and Drug Abuse Patient Records regulations: The Federal rules restrict any use of the information to criminally investigate or prosecute any alcohol or drug abuse patient.[facility] CenterIn the event this information is protected by the Federal Confidentiality of Alcohol and Drug Abuse Patient Records regulations: The Federal rules restrict any use of the information to criminally investigate or prosecute any alcohol or drug abuse patient.[facility] CenterIn the event this information is protected by the Federal Confidentiality of Alcohol and Drug Abuse Patient Records regulations: The Federal rules restrict any use of the information to criminally investigate or prosecute any alcohol or drug abuse patient.[facility] CenterIn the event this information is protected by the Federal Confidentiality of Alcohol and Drug Abuse Patient Records regulations: The Federal rules restrict any use of the information to criminally investigate or prosecute any alcohol or drug abuse patient.[facility] CenterIn the event this information is protected by the Federal Confidentiality of Alcohol and Drug Abuse Patient Records regulations: The Federal rules restrict any use of the information to criminally investigate or prosecute any alcohol or drug abuse patient.[facility] CenterIn the event this information is protected by the Federal Confidentiality of Alcohol and Drug Abuse Patient Records regulations: The Federal rules restrict any use of the information to criminally investigate or prosecute any alcohol or drug abuse patient.[facility] CenterIn the event this information is protected by the Federal Confidentiality of Alcohol and Drug Abuse Patient Records regulations: The Federal rules restrict any use of the information to criminally investigate or prosecute any alcohol or drug abuse patient.[facility] CenterIn the event this information is protected by the Federal Confidentiality of Alcohol and Drug Abuse Patient Records regulations: The Federal rules restrict any use of the information to criminally investigate or prosecute any alcohol or drug abuse patient.[facility] CenterIn the event this information is protected by the Federal Confidentiality of Alcohol and Drug Abuse Patient Records regulations: The Federal rules restrict any use of the information to criminally investigate or prosecute any alcohol or drug abuse patient.[facility] CenterIn the event this information is protected by the Federal Confidentiality of Alcohol and Drug Abuse Patient Records regulations: The Federal rules restrict any use of the information to criminally investigate or prosecute any alcohol or drug abuse patient.[facility] CenterIn the event this information is protected by the Federal Confidentiality of Alcohol and Drug Abuse Patient Records regulations: The Federal rules restrict any use of the information to criminally investigate or prosecute any alcohol or drug abuse patient.[facility] CenterIn the event this information is protected by the Federal Confidentiality of Alcohol and Drug Abuse Patient Records regulations: The Federal rules restrict any use of the information to criminally investigate or prosecute any alcohol or drug abuse patient.[facility] CenterIn the event this information is protected by the Federal Confidentiality of Alcohol and Drug Abuse Patient Records regulations: The Federal rules restrict any use of the information to criminally investigate or prosecute any alcohol or drug abuse patient.[facility] CenterIn the event this information is protected by the Federal Confidentiality of Alcohol and Drug Abuse Patient Records regulations: The Federal rules restrict any use of the information to criminally investigate or prosecute any alcohol or drug abuse patient.[facility] CenterIn the event this information is protected by the Federal Confidentiality of Alcohol and Drug Abuse Patient Records regulations: The Federal rules restrict any use of the information to criminally investigate or prosecute any alcohol or drug abuse patient.[facility] CenterIn the event this information is protected by the Federal Confidentiality of Alcohol and Drug Abuse Patient Records regulations: The Federal rules restrict any use of the information to criminally investigate or prosecute any alcohol or drug abuse patient.[facility] CenterIn the event this information is protected by the Federal Confidentiality of Alcohol and Drug Abuse Patient Records regulations: The Federal rules restrict any use of the information to criminally investigate or prosecute any alcohol or drug abuse patient.[facility] CenterIn the event this information is protected by the Federal Confidentiality of Alcohol and Drug Abuse Patient Records regulations: The Federal rules restrict any use of the information to criminally investigate or prosecute any alcohol or drug abuse patient.[facility] CenterIn the event this information is protected by the Federal Confidentiality of Alcohol and Drug Abuse Patient Records regulations: The Federal rules restrict any use of the information to criminally investigate or prosecute any alcohol or drug abuse patient.[facility] CenterIn the event this information is protected by the Federal Confidentiality of Alcohol and Drug Abuse Patient Records regulations: The Federal rules restrict any use of the information to criminally investigate or prosecute any alcohol or drug abuse patient.[facility] CenterIn the event this information is protected by the Federal Confidentiality of Alcohol and Drug Abuse Patient Records regulations: The Federal rules restrict any use of the information to criminally investigate or prosecute any alcohol or drug abuse patient.[facility] CenterIn the event this information is protected by the Federal Confidentiality of Alcohol and Drug Abuse Patient Records regulations: The Federal rules restrict any use of the information to criminally investigate or prosecute any alcohol or drug abuse patient.[facility] CenterIn the event this information is protected by the Federal Confidentiality of Alcohol and Drug Abuse Patient Records regulations: The Federal rules restrict any use of the information to criminally investigate or prosecute any alcohol or drug abuse patient.[facility] CenterIn the event this information is protected by the Federal Confidentiality of Alcohol and Drug Abuse Patient Records regulations: The Federal rules restrict any use of the information to criminally investigate or prosecute any alcohol or drug abuse patient.[facility] CenterIn the event this information is protected by the Federal Confidentiality of Alcohol and Drug Abuse Patient Records regulations: The Federal rules restrict any use of the information to criminally investigate or prosecute any alcohol or drug abuse patient.[facility] CenterIn the event this information is protected by the Federal Confidentiality of Alcohol and Drug Abuse Patient Records regulations: The Federal rules restrict any use of the information to criminally investigate or prosecute any alcohol or drug abuse patient.[facility] CenterIn the event this information is protected by the Federal Confidentiality of Alcohol and Drug Abuse Patient Records regulations: The Federal rules restrict any use of the information to criminally investigate or prosecute any alcohol or drug abuse patient.[facility] CenterIn the event this information is protected by the Federal Confidentiality of Alcohol and Drug Abuse Patient Records regulations: The Federal rules restrict any use of the information to criminally investigate or prosecute any alcohol or drug abuse patient.[facility] CenterIn the event this information is protected by the Federal Confidentiality of Alcohol and Drug Abuse Patient Records regulations: The Federal rules restrict any use of the information to criminally investigate or prosecute any alcohol or drug abuse patient.[facility] CenterIn the event this information is protected by the Federal Confidentiality of Alcohol and Drug Abuse Patient Records regulations: The Federal rules restrict any use of the information to criminally investigate or prosecute any alcohol or drug abuse patient.[facility] CenterIn the event this information is protected by the Federal Confidentiality of Alcohol and Drug Abuse Patient Records regulations: The Federal rules restrict any use of the information to criminally investigate or prosecute any alcohol or drug abuse patient.[facility] CenterIn the event this information is protected by the Federal Confidentiality of Alcohol and Drug Abuse Patient Records regulations: The Federal rules restrict any use of the information to criminally investigate or prosecute any alcohol or drug abuse patient.[facility] CenterIn the event this information is protected by the Federal Confidentiality of Alcohol and Drug Abuse Patient Records regulations: The Federal rules restrict any use of the information to criminally investigate or prosecute any alcohol or drug abuse patient.[facility] CenterIn the event this information is protected by the Federal Confidentiality of Alcohol and Drug Abuse Patient Records regulations: The Federal rules restrict any use of the information to criminally investigate or prosecute any alcohol or drug abuse patient.[facility] CenterIn the event this information is protected by the Federal Confidentiality of Alcohol and Drug Abuse Patient Records regulations: The Federal rules restrict any use of the information to criminally investigate or prosecute any alcohol or drug abuse patient.[facility] CenterIn the event this information is protected by the Federal Confidentiality of Alcohol and Drug Abuse Patient Records regulations: The Federal rules restrict any use of the information to criminally investigate or prosecute any alcohol or drug abuse patient.[facility] CenterIn the event this information is protected by the Federal Confidentiality of Alcohol and Drug Abuse Patient Records regulations: The Federal rules restrict any use of the information to criminally investigate or prosecute any alcohol or drug abuse patient.[facility] CenterIn the event this information is protected by the Federal Confidentiality of Alcohol and Drug Abuse Patient Records regulations: The Federal rules restrict any use of the information to criminally investigate or prosecute any alcohol or drug abuse patient.[facility] CenterIn the event this information is protected by the Federal Confidentiality of Alcohol and Drug Abuse Patient Records regulations: The Federal rules restrict any use of the information to criminally investigate or prosecute any alcohol or drug abuse patient.[facility] CenterIn the event this information is protected by the Federal Confidentiality of Alcohol and Drug Abuse Patient Records regulations: The Federal rules restrict any use of the information to criminally investigate or prosecute any alcohol or drug abuse patient.[facility] CenterIn the event this information is protected by the Federal Confidentiality of Alcohol and Drug Abuse Patient Records regulations: The Federal rules restrict any use of the information to criminally investigate or prosecute any alcohol or drug abuse patient.[facility] CenterIn the event this information is protected by the Federal Confidentiality of Alcohol and Drug Abuse Patient Records regulations: The Federal rules restrict any use of the information to criminally investigate or prosecute any alcohol or drug abuse patient.[facility] CenterIn the event this information is protected by the Federal Confidentiality of Alcohol and Drug Abuse Patient Records regulations: The Federal rules restrict any use of the information to criminally investigate or prosecute any alcohol or drug abuse patient.[facility] CenterIn the event this information is protected by the Federal Confidentiality of Alcohol and Drug Abuse Patient Records regulations: The Federal rules restrict any use of the information to criminally investigate or prosecute any alcohol or drug abuse patient.[facility] CenterIn the event this information is protected by the Federal Confidentiality of Alcohol and Drug Abuse Patient Records regulations: The Federal rules restrict any use of the information to criminally investigate or prosecute any alcohol or drug abuse patient.[facility] CenterIn the event this information is protected by the Federal Confidentiality of Alcohol and Drug Abuse Patient Records regulations: The Federal rules restrict any use of the information to criminally investigate or prosecute any alcohol or drug abuse patient.[facility] CenterIn the event this information is protected by the Federal Confidentiality of Alcohol and Drug Abuse Patient Records regulations: The Federal rules restrict any use of the information to criminally investigate or prosecute any alcohol or drug abuse patient.[facility] CenterIn the event this information is protected by the Federal Confidentiality of Alcohol and Drug Abuse Patient Records regulations: The Federal rules restrict any use of the information to criminally investigate or prosecute any alcohol or drug abuse patient.[facility] CenterIn the event this information is protected by the Federal Confidentiality of Alcohol and Drug Abuse Patient Records regulations: The Federal rules restrict any use of the information to criminally investigate or prosecute any alcohol or drug abuse patient.[facility] CenterIn the event this information is protected by the Federal Confidentiality of Alcohol and Drug Abuse Patient Records regulations: The Federal rules restrict any use of the information to criminally investigate or prosecute any alcohol or drug abuse patient.[facility] CenterIn the event this information is protected by the Federal Confidentiality of Alcohol and Drug Abuse Patient Records regulations: The Federal rules restrict any use of the information to criminally investigate or prosecute any alcohol or drug abuse patient.[facility] CenterIn the event this information is protected by the Federal Confidentiality of Alcohol and Drug Abuse Patient Records regulations: The Federal rules restrict any use of the information to criminally investigate or prosecute any alcohol or drug abuse patient.[facility] CenterIn the event this information is protected by the Federal Confidentiality of Alcohol and Drug Abuse Patient Records regulations: The Federal rules restrict any use of the information to criminally investigate or prosecute any alcohol or drug abuse patient.[facility] CenterIn the event this information is protected by the Federal Confidentiality of Alcohol and Drug Abuse Patient Records regulations: The Federal rules restrict any use of the information to criminally investigate or prosecute any alcohol or drug abuse patient.[facility] CenterIn the event this information is protected by the Federal Confidentiality of Alcohol and Drug Abuse Patient Records regulations: The Federal rules restrict any use of the information to criminally investigate or prosecute any alcohol or drug abuse patient.[facility] CenterIn the event this information is protected by the Federal Confidentiality of Alcohol and Drug Abuse Patient Records regulations: The Federal rules restrict any use of the information to criminally investigate or prosecute any alcohol or drug abuse patient.[facility] CenterIn the event this information is protected by the Federal Confidentiality of Alcohol and Drug Abuse Patient Records regulations: The Federal rules restrict any use of the information to criminally investigate or prosecute any alcohol or drug abuse patient.[facility] CenterIn the event this information is protected by the Federal Confidentiality of Alcohol and Drug Abuse Patient Records regulations: The Federal rules restrict any use of the information to criminally investigate or prosecute any alcohol or drug abuse patient.[facility] CenterIn the event this information is protected by the Federal Confidentiality of Alcohol and Drug Abuse Patient Records regulations: The Federal rules restrict any use of the information to criminally investigate or prosecute any alcohol or drug abuse patient.[facility] CenterIn the event this information is protected by the Federal Confidentiality of Alcohol and Drug Abuse Patient Records regulations: The Federal rules restrict any use of the information to criminally investigate or prosecute any alcohol or drug abuse patient.[facility] CenterIn the event this information is protected by the Federal Confidentiality of Alcohol and Drug Abuse Patient Records regulations: The Federal rules restrict any use of the information to criminally investigate or prosecute any alcohol or drug abuse patient.[facility] CenterIn the event this information is protected by the Federal Confidentiality of Alcohol and Drug Abuse Patient Records regulations: The Federal rules restrict any use of the information to criminally investigate or prosecute any alcohol or drug abuse patient.[facility] CenterIn the event this information is protected by the Federal Confidentiality of Alcohol and Drug Abuse Patient Records regulations: The Federal rules restrict any use of the information to criminally investigate or prosecute any alcohol or drug abuse patient.[facility] Care Teams (unrecognized sec tion and content) Supervisory Training Specialist Relationship Specialty Start Date End Date Herminia Case MD [address] [place] [address] PCP - General Family Practice 12/12/18 Supervisory Training Specialist Relationship Specialty Start Date End Date Herminia Case MD [address] [place] [address] PCP - General Family Practice 12/12/18 Supervisory Training Specialist Relationship Specialty Start Date End Date Herminia Case MD [address] [place] [address] PCP - General Family Practice 12/12/18 Supervisory Training Specialist Relationship Specialty Start Date End Date Herminia Case MD [address] [place] [address] PCP - General Family Practice 12/12/18 Supervisory Training Specialist Relationship Specialty Start Date End Date Herminia Case MD [address] [place] [address] PCP - General Family Practice 12/12/18 Supervisory Training Specialist Relationship Specialty Start Date End Date Herminia Case MD PCP - General 04/15/15 Supervisory Training Specialist Relationship Specialty Start Date End Date Herminia Case MD PCP - General 04/15/15 Supervisory Training Specialist Relationship Specialty Start Date End Date Herminia Case MD [address] [place] [address] PCP - General Family Practice 12/12/18 Supervisory Training Specialist Relationship Specialty Start Date End Date Herminia Case MD [address] [place] [address] PCP - General Family Practice 12/12/18 Supervisory Training Specialist Relationship Specialty Start Date End Date Herminia Case MD [address] [place] [address] PCP - General Family Practice 12/12/18 Supervisory Training Specialist Relationship Specialty Start Date End Date Herminia Case MD [address] [place] [address] PCP - General Family Practice 12/12/18 Supervisory Training Specialist Relationship Specialty Start Date End Date Herminia Case MD [address] [place] [address] PCP - General Family Medicine 12/12/18 Supervisory Training Specialist Relationship Specialty Start Date End Date Herminia Case MD [address] [place] [address] PCP - General Family Medicine 12/12/18 Supervisory Training Specialist Relationship Specialty Start Date End Date Herminia Case MD [address] [place] [address] PCP - General Family Medicine 12/12/18 Supervisory Training Specialist Relationship Specialty Start Date End Date Herminia Case MD [address] [place] [address] PCP - General Family Medicine 12/12/18 Supervisory Training Specialist Relationship Specialty Start Date End Date Herminia Case MD [address] [place] [address] PCP - General Family Medicine 12/12/18 Supervisory Training Specialist Relationship Specialty Start Date End Date Herminia Case MD [address] [place] [address] PCP - General Family Medicine 12/12/18 Supervisory Training Specialist Relationship Specialty Start Date End Date Herminia Case MD [address] [place] [address] PCP - General Family Medicine 12/12/18 Supervisory Training Specialist Relationship Specialty Start Date End Date Herminia Case MD [address] [place] [address] PCP - General Family Medicine 12/12/18 Supervisory Training Specialist Relationship Specialty Start Date End Date Herminia Case MD [address] [place] [address] PCP - General Family Medicine 12/12/18 Supervisory Training Specialist Relationship Specialty Start Date End Date Herminia Case MD [address] [place] [address] PCP - General Family Medicine 12/12/18 Supervisory Training Specialist Relationship Specialty Start Date End Date Herminia Case MD [address] [place] [address] PCP - General Family Medicine 12/12/18 Supervisory Training Specialist Relationship Specialty Start Date End Date Herminia Case MD [address] [place] [address] PCP - General Family Medicine 12/12/18 Supervisory Training Specialist Relationship Specialty Start Date End Date Herminia Case MD [address] [place] [address] PCP - General Family Medicine 12/12/18 Supervisory Training Specialist Relationship Specialty Start Date End Date Herminia Case MD [address] [place] [address] PCP - General Family Medicine 12/12/18 Supervisory Training Specialist Relationship Specialty Start Date End Date Herminia Case MD [address] [place] [address] PCP - General Family Medicine 12/12/18 Supervisory Training Specialist Relationship Specialty Start Date End Date Herminia Case MD [address] [place] [address] PCP - General Family Medicine 12/12/18 Supervisory Training Specialist Relationship Specialty Start Date End Date Herminia Case MD [address] [place] [address] PCP - General Family Medicine 12/12/18 Supervisory Training Specialist Relationship Specialty Start Date End Date Herminia Case MD [address] [place] [address] PCP - General Family Medicine 12/12/18 Supervisory Training Specialist Relationship Specialty Start Date End Date Herminia Case MD [address] [place] [address] PCP - General 04/15/15 Ziyad Menendez MD [address] [facility] [place], [place] [id number] Consulting Physician Gynecologic Oncology 03/12/22 Sally Rocha, DB - NADEEM [address] [facility] [address] [place], [place] [id number] Nurse Practitioner Certified Nurse Practitioner 04/21/22 Kisha Pepe APRN - CARD PLACER [address] [place] [address] [address] [place] [address] Nurse Practitioner Nurse Practitioner 10/20/22 Supervisory Training Specialist Relationship Specialty Start Date End Date Herminia Case MD [address] [place] [address] PCP - General Family Medicine 12/12/18 Supervisory Training Specialist Relationship Specialty Start Date End Date Herminia Case MD [address] [place], [place] [id number] PCP - General Family Medicine 12/12/18 Supervisory Training Specialist Relationship Specialty Start Date End Date Herminia Case MD [address] [place], [place] [id number] PCP - General 04/15/15 Ziyad Menendez MD [address] [place] [address], [address] [place], [place] [id number] Consulting Physician Gynecologic Oncology 03/12/22 Sally Rocha SPRAYING MACHINE OPERATOR - CARD PLACER [address] [place] [address] [address] [place] [id number] Nurse Practitioner Certified Nurse Practitioner 04/21/22 Kisha Pepe SPRAYING MACHINE OPERATOR - CARD PLACER [address] [place] [address] [address] [place], [place] [id number] Nurse Practitioner Nurse Practitioner 10/20/22 Supervisory Training Specialist Relationship Specialty Start Date End Date Herminia Case MD [address] [place], [place] [id number] PCP - General Family Medicine 12/12/18 Supervisory Training Specialist Relationship Specialty Start Date End Date Herminia Case MD [address] [place] [address] PCP - General 04/15/15 Ziyad Menendez MD 161 [facility], [address] [place] [address] Consulting Physician Gynecologic Oncology 03/12/22 Sally Rocha SPRAYING MACHINE OPERATOR - CARD PLACER 161 [facility] [address] [place], [place] [id number] Nurse Practitioner Certified Nurse Practitioner 04/21/22 Kisha Pepe SPRAYING MACHINE OPERATOR - CARD PLACER 161 [facility] [address] [place], [place] [id number] Nurse Practitioner Nurse Practitioner 10/20/22 Supervisory Training Specialist Relationship Specialty Start Date End Date Herminia Case MD [address] [place] [address] PCP - General Family Medicine 12/12/18 Supervisory Training Specialist Relationship Specialty Start Date End Date Herminia Case MD [address] [place] [address] PCP - General Family Medicine 12/12/18 Supervisory Training Specialist Relationship Specialty Start Date End Date Herminia Case MD [address] [place], [place] [id number] PCP - General Family Medicine 12/12/18 Supervisory Training Specialist Relationship Specialty Start Date End Date Herminia Case MD [address] [place] [address] PCP - General Family Medicine 12/12/18 Supervisory Training Specialist Relationship Specialty Start Date End Date Herminia Case MD [address] [place] [address] PCP - General Family Medicine 12/12/18 Supervisory Training Specialist Relationship Specialty Start Date End Date Herminia Case MD [address] [place] [address] PCP - General Family Medicine 12/12/18 Supervisory Training Specialist Relationship Specialty Start Date End Date Herminia Case MD [address] [place] [address] PCP - General Family Medicine 12/12/18 Supervisory Training Specialist Relationship Specialty Start Date End Date Herminia Case MD [address] [place] [address] PCP - General Family Medicine 12/12/18 Supervisory Training Specialist Relationship Specialty Start Date End Date Herminia Case MD [address] [place] [address] PCP - General Family Medicine 12/12/18 Supervisory Training Specialist Relationship Specialty Start Date End Date Herminia Case MD [address] [place] [address] PCP - General Family Medicine 12/12/18 Supervisory Training Specialist Relationship Specialty Start Date End Date Herminia Case MD [address] [place] [address] PCP - General Family Medicine 12/12/18 Supervisory Training Specialist Relationship Specialty Start Date End Date Herminia Case MD [address] [place] [address] PCP - General 04/15/15 Ziyad Menendez MD [address] [facility] 298 [place] [address] Consulting Physician Gynecologic Oncology 03/12/22 Sally Rocha APRN - CARD PLACER 161 [facility] 295 [place] [address] Nurse Practitioner Certified Nurse Practitioner 04/21/22 Kisha Pepe APRN - CARD PLACER 161 [facility] 298 [place] [address] Nurse Practitioner Nurse Practitioner 10/20/22 Supervisory Training Specialist Relationship Specialty Start Date End Date Herminia Case MD [address] [place] [address] PCP - General Family Medicine 12/12/18 Supervisory Training Specialist Relationship Specialty Start Date End Date Herminia Case MD [address] [place] [address] PCP - General Family Medicine 12/12/18 Supervisory Training Specialist Relationship Specialty Start Date End Date Herminia Case MD [address] [place] [address] PCP - General 04/15/15 Ziyad Menendez MD [address] [facility] [address] [place] [address] Consulting Physician Gynecologic Oncology 03/12/22 Sally Rocha, SPRAYING MACHINE OPERATOR - CARD PLACER 161 [facility] 295 [place] [address] Nurse Practitioner Certified Nurse Practitioner 04/21/22 Kisha Pepe APRN - CARD PLACER [address] [address] Nurse Practitioner Nurse Practitioner 10/20/22 Supervisory Training Specialist Relationship Specialty Start Date End Date Herminia Case MD [address] [place] [address] PCP - General Family Medicine 12/12/18 Supervisory Training Specialist Relationship Specialty Start Date End Date Herminia Case MD [address] [place] [address] PCP - General Family Medicine 12/12/18 Supervisory Training Specialist Relationship Specialty Start Date End Date Herminia Case MD [address] [place] [address] PCP - General Family Medicine 12/12/18 Supervisory Training Specialist Relationship Specialty Start Date End Date Herminia Case MD [address] [place] [address] PCP - General Family Medicine 12/12/18 Supervisory Training Specialist Relationship Specialty Start Date End Date Herminia Case MD [address] [place] [address] PCP - General Family Medicine 12/12/18 Supervisory Training Specialist Relationship Specialty Start Date End Date Herminia Case MD [address] [place] [address] PCP - General Family Medicine 12/12/18 Supervisory Training Specialist Relationship Specialty Start Date End Date Herminia Case MD [address] [place] [address] PCP - General Family Medicine 12/12/18 Supervisory Training Specialist Relationship Specialty Start Date End Date Herminia Case MD [address] [place] [address] PCP - General Family Medicine 12/12/18 Supervisory Training Specialist Relationship Specialty Start Date End Date Herminia Case MD [address] [place] [address] PCP - General Family Medicine 12/12/18 Supervisory Training Specialist Relationship Specialty Start Date End Date Herminia Case MD [address] [place] [address] PCP - General Family Medicine 12/12/18 Supervisory Training Specialist Relationship Specialty Start Date End Date Herminia Case MD [address] [place] [address] PCP - General Family Medicine 12/12/18 Supervisory Training Specialist Relationship Specialty Start Date End Date Herminia Case MD [address] [place] [address] PCP - General 04/15/15 Ziyad Menendez MD [address] [facility] 295 [place] [address] Consulting Physician Gynecologic Oncology 03/12/22 Sally Rocha APRN - CARD PLACER [address] [facility] [address] [place] [address] Nurse Practitioner Certified Nurse Practitioner 04/21/22 Kisha Pepe APRN - CARD PLACER 161 [facility] 298 [place] [address] Nurse Practitioner Nurse Practitioner 10/20/22 Supervisory Training Specialist Relationship Specialty Start Date End Date Herminia Case MD [address] [place] [address] PCP - General Family Medicine 12/12/18 Supervisory Training Specialist Relationship Specialty Start Date End Date Herminia Case MD [address] [place] [address] PCP - General Family Medicine 12/12/18 Supervisory Training Specialist Relationship Specialty Start Date End Date Herminia Case MD [address] [place] [address] PCP - General 04/15/15 Ziyad Menendez MD [address] [facility] 295 [place] [address] Consulting Physician Gynecologic Oncology 03/12/22 Sally Rocha SPRAYING MACHINE OPERATOR - CARD PLACER 161 [facility] [address] [place] [address] Nurse Practitioner Certified Nurse Practitioner 04/21/22 Kisha Pepe, SPRAYING MACHINE OPERATOR - CARD PLACER 161 [facility] [address] [place] [address] Nurse Practitioner Nurse Practitioner 10/20/22 Supervisory Training Specialist Relationship Specialty Start Date End Date Herminia Case MD [address] [place] [address] PCP - General Family Medicine 12/12/18 Supervisory Training Specialist Relationship Specialty Start Date End Date Herminia Case MD [address] [place] [address] PCP - General 04/15/15 Ziyad Menendez MD [address] [place] [address] [address] [place] [address] Consulting Physician Gynecologic Oncology 03/12/22 Sally Rocha, SPRAYING MACHINE OPERATOR - CARD PLACER [address] [place] [address] 295 [place] [address] Nurse Practitioner Certified Nurse Practitioner 04/21/22 Kisha Pepe SPRAYING MACHINE OPERATOR - CARD PLACER [address] [place] [address] 298 [place] [address] Nurse Practitioner Nurse Practitioner 10/20/22 Supervisory Training Specialist Relationship Specialty Start Date End Date Herminia Case MD [address] [place] [address] PCP - General Family Medicine 12/12/18 Supervisory Training Specialist Relationship Specialty Start Date End Date Herminia Case MD [address] [place] [address] PCP - General 04/15/15 Ziyad Menendez MD 161 [facility], [address] [place] [address] Consulting Physician Gynecologic Oncology 03/12/22 Sally Rocha, SPRAYING MACHINE OPERATOR - CARD PLACER 161 [facility] 298 [place] [address] Nurse Practitioner Certified Nurse Practitioner 04/21/22 Supervisory Training Specialist Relationship Specialty Start Date End Date Herminia Case MD [address] [place] [address] PCP - General 04/15/15 Ziyad Menendez MD 161 [facility], [address] [place] [address] Consulting Physician Gynecologic Oncology 03/12/22 Sally Rocha, SPRAYING MACHINE OPERATOR - CARD PLACER 161 [facility] [address] [place] [address] Nurse Practitioner Certified Nurse Practitioner 04/21/22 Supervisory Training Specialist Relationship Specialty Start Date End Date Herminia Case MD [address] [place] [address] PCP - General Family Medicine 12/12/18 Melva Juárez PA-C [address] [place] [address] Roll Cutter Family Medicine 02/26/24 Supervisory Training Specialist Relationship Specialty Start Date End Date Herminia Case MD [address] [place] [address] PCP - General Family Medicine 12/12/18 Melva Juárez PA-C [address] [place] [address] Roll Cutter Family Medicine 02/26/24 Supervisory Training Specialist Relationship Specialty Start Date End Date Herminia Case MD [address] [place] [address] PCP - General Family Medicine 12/12/18 Melva Juárez PA-C [address] [place] [address] Roll Cutter Family Medicine 02/26/24 Supervisory Training Specialist Relationship Specialty Start Date End Date Herminia Case MD [address] [place] [address] PCP - General Family Medicine 12/12/18 Melva Juárez PA-C [address] [place] [address] Roll Cutter Family Medicine 02/26/24 Supervisory Training Specialist Relationship Specialty Start Date End Date Herminia Case MD [address] [place] [address] PCP - General Family Medicine 12/12/18 Melva Juárez PA-C [address] [place] [address] Roll Cutter Family Medicine 02/26/24 Supervisory Training Specialist Relationship Specialty Start Date End Date Herminia Case MD [address] [place] [address] PCP - General Family Medicine 12/12/18 Melva Juárez PA-C [address] [place] [address] Roll Cutter Family Medicine 02/26/24 Supervisory Training Specialist Relationship Specialty Start Date End Date Herminia Case MD [address] [place] [address] PCP - General 04/15/15 Ziyad Menendez MD [address] [facility] [address] [place] [address] Consulting Physician Gynecologic Oncology 03/12/22 Sally Rocha, SPRAYING MACHINE OPERATOR - CARD PLACER 161 [facility] 295 [place] [address] Nurse Practitioner Certified Nurse Practitioner 04/21/22 Kisha Pepe APRN - CARD PLACER 161 [facility] 298 [place] [address] Nurse Practitioner Nurse Practitioner 10/20/22 Supervisory Training Specialist Relationship Specialty Start Date End Date Herminia Case MD [address] [place] [address] PCP - General Family Medicine 12/12/18 Melva Juárez PA-C [address] [place] [address] Roll Cutter Family Medicine 02/26/24 Supervisory Training Specialist Relationship Specialty Start Date End Date Herminia Case MD [address] [place] [address] PCP - General Family Medicine 12/12/18 Melva Juárez PA-C [address] [place] [address] Roll Cutter Family Medicine 02/26/24 Supervisory Training Specialist Relationship Specialty Start Date End Date Herminia Case MD [address] [place] [address] PCP - General Family Medicine 12/12/18 Melva Juárez PA-C [address] [place] [address] Roll Cutter Family Medicine 02/26/24 Herminia Case MD [address] [place] [address] Home Care Provider Family Medicine 06/07/24 Herminia Case MD [address] [place] [address] Referring Family Medicine 06/07/24 Supervisory Training Specialist Relationship Specialty Start Date End Date Herminia Case MD [address] [place] [address] PCP - General Family Medicine 12/12/18 Melva Juárez PA-C [address] [place] [address] Roll Cutter Family Medicine 02/26/24 Herminia Case MD [address] [place] [address] Home Care Provider Family Medicine 06/07/24 Herminia Case MD [address] [place] [address] Referring Family Medicine 06/07/24 Supervisory Training Specialist Relationship Specialty Start Date End Date Herminia Case MD [address] [place] [address] PCP - General Family Medicine 12/12/18 Melva Juárez PA-C [address] [place] [address] Roll Cutter Family Medicine 02/26/24 Herminia Case MD [address] [place] [address] Home Care Provider Family Medicine 06/07/24 Herminia Case MD [address] [place] [address] Referring Family Medicine 06/07/24 Supervisory Training Specialist Relationship Specialty Start Date End Date Herminia Case MD [address] [place] [address] PCP - General Family Medicine 12/12/18 Melva Juárez PA-C [address] [place] [address] Roll Cutter Family Medicine 02/26/24 Herminia Case MD [address] [place] [address] Home Care Provider Family Medicine 06/07/24 Herminia Case MD [address] [place] [address] Referring Family Medicine 06/07/24 Supervisory Training Specialist Relationship Specialty Start Date End Date Herminia Case MD [address] [place] [address] PCP - General Family Medicine 12/12/18 Melva Juárez PA-C [address] [place] [address] Roll Cutter Family Medicine 02/26/24 Herminia Case MD [address] [place] [address] Home Care Provider Family Medicine 06/07/24 Herminia Case MD [address] [place] [address] Referring Family Medicine 06/07/24 Supervisory Training Specialist Relationship Specialty Start Date End Date Herminia Case MD [address] [place] [address] PCP - General Family Medicine 12/12/18 Melva Juárez PA-C [address] [place] [address] Roll Cutter Family Medicine 02/26/24 Herminia Case MD [address] [place] [address] Home Care Provider Family Medicine 06/07/24 Herminia Case MD [address] [place] [address] Referring Family Medicine 06/07/24 Supervisory Training Specialist Relationship Specialty Start Date End Date Herminia Case MD [address] [place] [address] PCP - General Family Medicine 12/12/18 Melva Juárez PA-C [address] [place] [address] Roll Cutter Family Medicine 02/26/24 Herminia Case MD [address] [place] [address] Home Care Provider Family Medicine 06/07/24 Herminia Case MD [address] [place] [address] Referring Family Medicine 06/07/24 Supervisory Training Specialist Relationship Specialty Start Date End Date Herminia Case MD [address] [place] [address] PCP - General 04/15/15 Ziyad Menendez MD 161 [facility] [address] [place] [address] Consulting Physician Gynecologic Oncology 03/12/22 Sally Rocha APRN - CARD PLACER 161 [facility] [address] [place] [address] Nurse Practitioner Certified Nurse Practitioner 04/21/22 Kisha Pepe APRN - CARD PLACER 161 [facility] [address] [place] [address] Nurse Practitioner Nurse Practitioner 10/20/22 Supervisory Training Specialist Relationship Specialty Start Date End Date Herminia Case MD [address] [place] [address] PCP - General 04/15/15 Ziyad Menendez MD 161 [facility] [address] [place] [address] Consulting Physician Gynecologic Oncology 03/12/22 Sally Rocha APRN - CARD PLACER 161 [address] [facility] [address] [place] [address] Nurse Practitioner Certified Nurse Practitioner 04/21/22 Kisha Pepe APRN - CNP 161 [address] [facility] [address] [place] [address] Nurse Practitioner Nurse Practitioner 10/20/22 Supervisory Training Specialist Relationship Specialty Start Date End Date Herminia Case MD [address] [place] [address] PCP - General Family Medicine 12/12/18 Melva Juárez PA-C [address] [place] [address] Roll Cutter Family Medicine 02/26/24 Herminia Case MD [address] [place] [address] Home Care Provider Family Medicine 06/07/24 Herminia Case MD [address] [place] [address] Referring Family Medicine 06/07/24 Supervisory Training Specialist Relationship Specialty Start Date End Date Herminia Case MD [address] [place] [address] PCP - General 04/15/15 Ziyad Menendez MD 161 [address] [facility] [address] [place] [address] Consulting Physician Gynecologic Oncology 03/12/22 Sally Rocha SPRAYING MACHINE OPERATOR - CARD PLACER 161 [address] [facility] 295 [place], [place] [id number] Nurse Practitioner Certified Nurse Practitioner 04/21/22 Kisha Pepe APRN - CARD PLACER 161 [address] [facility] [address] [place], [place] [id number] Nurse Practitioner Nurse Practitioner 10/20/22 Supervisory Training Specialist Relationship Specialty Start Date End Date Herminia Case MD [address] [place] [address] PCP - General Family Medicine 12/12/18 Melva Juárez PA-C [address] [place] [address] Roll Cutter Family Medicine 02/26/24 Herminia Case MD [address] [place] [address] Home Care Provider Family Medicine 06/07/24 Herminia Case MD [address] [place] [address] Referring Family Medicine 06/07/24 Supervisory Training Specialist Relationship Specialty Start Date End Date Herminia Case MD [address] [place] [address] PCP - General 04/15/15 Ziyad Menendez MD [address] [facility] [address] [place] [address] Consulting Physician Gynecologic Oncology 03/12/22 Sally Rocha APRN - CARD PLACER 161 [facility] 295 [place] [address] Nurse Practitioner Certified Nurse Practitioner 04/21/22 Kisha Pepe APRN - CARD PLACER 161 [facility] [address] [place] [address] Nurse Practitioner Nurse Practitioner 10/20/22 Supervisory Training Specialist Relationship Specialty Start Date End Date Herminia Case MD [address] [place] [address] PCP - General 04/15/15 Ziyad Menendez MD [address] [id number] Consulting Physician Gynecologic Oncology 03/12/22 Sally Rocha APRN - CNP 161 [facility] 295 [place], [place] [id number] Nurse Practitioner Certified Nurse Practitioner 04/21/22 Kisha Pepe APRN - [place] [address] [address] Nurse Practitioner Nurse Practitioner 10/20/22 Supervisory Training Specialist Relationship Specialty Start Date End Date Herminia Case MD [address] [place] [address] PCP - General 04/15/15 Ziyad Menendez MD [address] [address] Consulting Physician Gynecologic Oncology 03/12/22 Sally Rocha APRN - CNP [address] [address] Nurse Practitioner Certified Nurse Practitioner 04/21/22 Kisha Pepe APRN - CNP [address] [address] Nurse Practitioner Nurse Practitioner 10/20/22 FOR RECORDS [...] BE BASED ON THE PRIMARY CLINICAL RECORDS. [facility]. provides no warranty or guarantee of the accuracy or completeness of information in this document.
[2024-12-12 08:25] LABS: Hematocrit 38.6 % (37-47); Hemoglobin 11.8 g/dL (12.0-15.0); Mean Corp Hgb Conc 30.6 g/dL (32-36); Mean Corpuscular Volume 95.8 fL (81-99); Mean Platelet Vol. 10.4 fl (6.2-12.0); Platelet Count 189 K/mm3 (150-450); RBC Distribution Width CV 13.3 % (11.6-14.6); RBC Distribution Width SD 47.2 fl (35.1-43.9); Red Blood Count 4.03 M/mm3 (4.2-5.4); White Blood Count 7.9 K/mm3 (4.4-11.0)
[2024-12-12 08:41] LABS: Anion Gap 9 (5-15); BUN 13 mg/dL (4-19); BUN/Creat Ratio 22.1 RATIO (10-20); Calcium,Total 8.6 mg/dL (7.6-11.0); Carbon Dioxide 30.3 mmol/L (21.0-32.0); Chloride 98 mmol/L (98-108); Glucose 99 mg/dL (70-99); Potassium 4.3 mmol/L (3.3-5.1)
== END ==
LOC: OLS.SANC 05:00
PROVIDERS: Visit Provider Internal Medicine
DX: J44.9 Chronic obstructive pulmonary disease, unspecified (principal)
CPT/HCPCS: 36415; 80048; 85027

== ENCOUNTER → 2025-01-28 05:00 | Outpatient (REF) | payer MEDICARE, MEDICAID, SELFPAY ==
--- OUTSIDE RECORDS SUMMARY | 2025-01-28 03:39 | XMS RPT_ITS | CCD ---
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 Name Role Phone Herminia Case Primary Care Provider [phone] Evie, Herminia Primary Care Unavailable Distel, Herminia Referring Unavailable Ziyad Menendez Attending Unavailable Evie, Herminia Primary Care Unavailable Disttimmy, Herminia Referring Unavailable Ziyad Menendez Attending Unavailable Disttimmy, Herminia Primary Care Unavailable Distel, Herminia Referring Unavailable Ziyad Menendez Attending Unavailable Guanakoel, Herminia Primary Care Unavailable Guanakoel, Herminia Referring Unavailable Ziyad Menendez Attending Unavailable Distel, Herminia Primary Care Unavailable Distel, Herminia Referring Unavailable Ziyad Menendez Attending Unavailable Herminia Case MD Primary Care Provider Herminia Case MD Primary Care Provider Herminia Case MD Primary Care Provider Ziyad Menendez MD Unavailable Aj 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 - MOTION PICTURE SET GRIP, Sally Unavailable Afshin 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 - MOTION PICTURE SET GRIP, Kisha Unavailable Ziyad Menendez MD Unavailable Aj 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 - MOTION PICTURE SET GRIP, Sally Unavailable Ziyad Menendez MD Unavailable Herminia Case MD Primary Care Provider Herminia Case MD Primary Care Provider Ziyad Menendez MD Unavailable Aj 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 - MOTION PICTURE SET GRIP, Sally Unavailable Joseph ARREGUIN, Melva Balderas Unavailable Herminia Case MD Primary Care Provider [...] Care Unavailable JOAQUINA MARTINEZ Attending Unava ilable Aj 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 - MOTION PICTURE SET GRIP, Sally Unavailable [phone] Afshin 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 - MOTION PICTURE SET GRIP, Kisha Unavailable Jameson Molina Attending Physician Unavailnorma STALLINGS, Jameson Referring Provider Unavailab charity STALLINGS, Jameson Attending Unavailable Katsaros OLS, Jameson Attending Unavailable Katsaros OLS, Jameson Attending Unavailable Katsaros CHANDRAKANT, Jameson Referring Unavailable Katsaros CHANDRAKANT, Jameson Attending Unavailable Katsaros OLS, Jameson Attending Unavailable Katsaros OLS, Jameson Attending Unavailable Katsaros OLS, Jameson Referring Unavailable Katsaros CHANDRAKANT, Jameson Attending Unavailable ELYSSA TESFAYE Attending Unavailable DISTEL, HERMINIA Primary Care Unavailable DISTEL, HERMINIA Primary Care Unavailable BETSEY GRESHAM Consulting Unavailable NAGINENIXON, DEJUAN Admitting Unavailable RENA BEVERLY Attending Unavailable DISTEL, HERMINIA Primary Care Unavailable LYNN, MASROOR Admitting Unavailable BALBIR THOMAS Consulting Unavailable DAVE WHIPPLE Attending Unavailable DISTEL, HERMINIA Primary Care Unavailable FLAKO ALTAMIRANO Attending Unavailable ELYSSA TESFAYE Attending Unavailable ELYSSA TESFAYE Referring Unavailable DISTEL, HERMINIA Primary Care Unavailable ELYSSA TESFAYE Attending Unavailable ELYSSA TESFAYE Referring Unavailable DISTEL, HERMINIA Primary Care Unavailable ZIYAD MENENDEZ Attending Unavailable ZIYAD MENENDEZ Referring Unavailable DISTEL, HERMINIA Primary Care Unavailable ELYSSA TESFAYE Attending Unavailable DISTEL, HERMINIA Primary Care Unavailable Allergies Allergy Classification Reported Allergen(s) Allergy Type Date of Onset Reaction(s) Facility (20 sources) Seasonal allergy; Translations: [SEASONAL ALLERGIES] Allergy to substance 08-16-[address] [facility] Work Phone: (20 sources) Pollen Allergy to substance 08-16-2017 Unknown [employer] Medications Current Medications Medication Drug Class(es) Dates [...] intertrochanteric fracture of left femur, initial encounter ([facility]) Take 1 tablet by mouth [...] 6 HOURS PRN, Pain Severe (7-10), Starting [facility] 08/02/19 at 2107 Maximum dose of acetaminophen [...] pain for up to 30 days. albuterol sulfate HFA 108 (90 Base) MCG/ACT inhaler (1 source) Start: 0 albuterol sulfate HFA 108 (90 Base) MCG/ACT inhaler alendronic acid 70 mg oral tablet (20 sources) Bisphosphonate Start: 2 End: 5 take 1 tablet by mouth every week [...] Inhibitor, Nonsteroidal Anti-inflammatory Drug Start: 11-25-2019 End: 01-23-2025 aspirin 81 MG EC tablet Take 81 [...] at 2148 First line therapy for constipation. calcium carbonate 625 mg / cholecalciferol 125 unt oral tablet (20 sources) Vitamin D calcium carbonate-cholecalc iferol (Oyster Shell) 250-3.125 MG-MCG tablet Take 1 tablet by mouth. Active Calcium Citrate / Vitamin D (20 sources) Calcium Citrate-Vitamin D (CALCIUM + D PO) Take by mouth 2 times daily 0 Active cefTRIAXone sodium 1 g in sodium chloride 0.9 % 100 mL IVPB (add-vantage) (1 source) Start: 08-03-2019 cefTRIAXone sodium 1 g in sodium chloride 0.9 % 100 mL IVPB (add-vantage) cholecalciferol 0.05 mg oral tablet (11 sources) Vitamin D Start: 01-19-2025 End: 01-23-2026 take 1 tablet by mouth once daily cholecalciferol (Vitamin D-3) 50 MCG (2000 UT) tablet Take 1 tablet (2,000 Units) by mouth daily. 01/23/2025 01/23/2026 Active Start: 09-22-2023 End: 10-23-2023 take 1 tablet by mouth once daily cholecalciferol (Vitamin D-3) 25 MCG (1000 UT) tablet Take 1 tablet (1,000 Units) by mouth daily. 30 tablet 09/23/2023 10/23/2023 Active cyclobenzaprine hydrochloride 5 mg oral tablet (20 sources) Muscle Relaxant Start: 01-09-2024 End: 06-26-2024 take 1 tablet by mouth every twelve [...] as needed. TAKE 1 TABLET BY SHANNA TWICE A DAY NEEDED Take 1 tablet by shanna th two times a day as needed. Take 10 mg by mouth. docusate sodium 50 mg / sennosides, fci 8.6 mg oral tablet (20 sources) Start: 01-15-2025 End: 01-22-2026 take 1 tablet by mouth twice daily senna-docusate sodium (Senokot-S) 8.6-50 MG tablet Take 1 tablet by mouth 2 times daily. 01/22/2025 01/22/2026 Active Start: 09-21-2023 End: 10-22-2023 take 1 tablet by mouth once daily senna-docusate sodiu m (Senokot-S) 8.6-50 MG tablet Take 1 tablet [...] on above: Take 1 capsule by mo [facility] twice daily for 7 days. Take 1 capsule by mo [facility] twice daily for 10 days. Fluticasone Furoate-Vilanterol (BREO ELLIPTA IN) (19 sources) Fluticasone Furoate-Vilanterol (BREO ELLIPTA IN) Inhale into the lungs daily 0 Active folic acid 1 mg oral tablet (20 sources) Start: 5 End: 6 take 1 tablet by mouth once daily folic acid (Folvite) 1 MG tablet Take 1 tablet (1 mg) by mouth daily. 08/09/2024 08/09/2025 Active 3 ml heparin sodium, porcine 100 unt/ml prefilled syringe (11 sources) Unfractionated Heparin, Anti-coagulant Start: 2 End: 2 heparin flush 100 UNIT/ML injection 500 Units [...] 100 UNIT/ML in jection 500 Units hydrOXYzine pamoate 25 mg oral capsule (10 sources) Antihistamine Start: 11-14-2024 End: 01-23-2025 hydrOXYzine pamoate (Vistaril) 25 MG capsule Take 25 mg by mouth. 11/14/2024 Active Start: 11-23-2019 hydrOXYzine (A TARAX) tablet 10 mg 4 ml labetalol hydrochloride 5 mg/ml cartridge (1 source) beta-Adrenergic Brigid Start: 11-21-2019 10 mg, Intravenous, EVERY 10 MIN PRN, High Blood Pressure, Starting Tue11/21/19 at 2147 Administer 10 mg IV every 10 min if SBP is 210 mmHg or greater OR DBP is 120 mmHg or greater as long as HR is greater than 65bpm until goal BP has been achieved and [...] oral tablet (20 sources) Start: 09-20-2023 End: 01-23-2025 take 1 tablet by mouth once daily melatonin 3 MG tablet Take 1 tablet (3 mg) by mouth Nightly. 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) , [...] ondansetron (ZOFRAN-ODT) dis integrating tablet 4 mg oxyCODONE hydrochloride 15 mg oral tablet (20 sources) Opioid Agonist Start: 01-13-2025 End: 01-23-2025 take 1 tablet by mouth every six hours as needed for pain and pain 15 mg, Oral, Every 6 hours PRN, moderate pain (4-6), severe pain (7-10), or SOB, Starting on Tue01/15/25 at 1055 Start: 01-12-2025 End: 01-13-2025 take 1 tablet by mouth every six hours as needed for pain 10 mg, Oral, Every 6 hours PRN, moderate pain (4-6), Starting on 01/12/25 at 1734 Start: 01-12-2025 End: 01-12-2025 take 15 mg by mouth once 15 mg, Oral, Once, On Sat at 1050, For 1 dose Start: 12-27-2024 End: 01-22-2025 take 1 tablet by mouth every six hours as needed for pain oxyCODONE (Roxicodone) 15 MG immediate release tablet Indications: DDD (degenerative disc disease), cervical Take 1 tablet (15 mg) by mouth every 6 hours as needed (pain). 10 tablet 01/22/2025 Active Start: 07-30-2024 End: 07-31-2024 take 1 tablet [...] pain 25 tablet 0 11/07/2019 11/14/2019 Active OXYGEN, HOME THERAPY, (8 sources) Start: 09-15-2020 End: 09-15-2021 OXYGEN, HOME THERAPY, Indications: Chronic respiratory failure with hypoxia (HCC) , Panlobular emphysema (HCC) 3 L/min by Nasal Cannula route continuous. 0 09/15/2020 09/15/2021 Active Comment on above: 3 L/min by Nasal Can nula route continuous. pantoprazole 40 mg delayed release oral tablet (5 sources) Proton Pump Inhibitor Start: 01-12-2025 End: 01-23-2026 take 1 tablet by mouth once daily in the morning pantoprazole (ProtoNix) 40 MG EC tablet Take 1 tablet (40 mg) by mouth every morning. Do not crush, chew, or split. 01/23/2025 01/23/2026 Active perflutren lipid microspheres (DEFINITY) injection 1.65 mg (1 source) Start: 11-22-2019 End: 11-25-2019 perflutren lipid microspheres (DEFINITY) injection 1.65 mg predniSONE 10 mg oral tablet (20 sources) Start: 01-23-2025 End: 02-01-2025 take 2 tablets by mouth once daily, then take 1 tablet by mouth once daily predniSONE (Deltasone) 10 MG tablet Take 2 tablets (20 mg) by mouth daily for 1 day, THEN 1 tablet (10 mg) daily for 3 days. 5 tablet 01/23/2025 02/01/2025 Active Start: 01-21-2025 End: 01-23-2025 predniSONE (Deltasone) table t 20 mg Start: 05-02-2024 predniSONE (DE LTASONE) 20 mg tablet Indications: Panlobular emphysema (HCC) [...] vomiting) 120 tablet 3 01/03/2020 Active QUEtiapine 50 mg oral tablet (20 sources) Atypical Antipsychotic [...] above: Take 1 tablet by shanna th at bedtime as needed. Take 1.5 tablets by mouth at bedtime as needed. Take 2 tablets by mo uth at bedtime as needed. TAKE 2 TABLETS BY MO [facility] AT BEDTIME NEEDED sodium chloride 30 mg/ml inhalation solution (20 sources) Start: 01-22-2025 End: 04-22-2025 sodium chloride 3 % nebulizer solution Take 4 mL by nebulization 2 times daily as needed for cough (chest congestion). 240 mL 2 01/22/2025 04/22/2025 Active Start: 01-14-2025 End: 01-23-2025 4 mL, Nebulization, 2 times daily, First dose on Tue01/14/25 at 0900 Start: 01-12-2025 End: 01-12-2025 1,000 mL, IntraVENous, at 1, 000 mL/hr, Administer over 1 Hours, Once, On Tue01/12/25 at 0930, For 1 dose Start: 08-01-2024 End: 08-08-2024 take 2 spray(s) [...] End: 08-02-2019 0.9 % sodium chloride bolus sodium chloride flush 0.9 % injection 3 mL (1 source) Start: 10-27-2019 sodium chlorid e flush 0.9 % injection 3 mL traZODone hydrochloride 100 mg oral tablet (20 sources) Serotonin Reuptake Inhibitor Start: 11-21-2019 take 100 mg by mouth once daily as needed for sleep 100 mg, Oral, NIGHTLY PRN, Sleep, Starting 11/21/19 at 2150 Start: 01-09-2017 End: 01-18-2020 traZODone [...] 325 mg oral tablet (20 sources) Start: 01-13-2025 End: 01-23-2025 take 1 tablet by mouth every six hours as needed for pain 650 mg, Oral, Every 6 hours PRN, mild pain (1-3), Starting on 01/13/25 at 1350, Maximum dose of acetaminophen is 4000 mg from all sources in 24 hours. Start: 07-31-2024 End: 08-08-2024 650 mg, Oral, [...] 2 times daily 0 01/18/2020 Discontinued albuterol 0.83 mg/ml inhalation solution (20 sources) beta2-Adrenerg ic Agonist Start: 01-12-2025 End: 01-23-2025 Start: 08-08-2024 End: 08-08-2025 albuterol (2.5 MG/3ML) 0.083 % nebulizer solution Indications: Pulmonary emphysema, unspecified emphysema [...] WHEEZE OR FOR SHORTNESS OF BREATH albuterol 0.833 mg/ml / ipratropium bromide 0.167 mg/ml inhalation solution (15 sources) Anticholinergic, beta2-Adrenergic Agonist Start: 01-15-2025 End: 01-23-2025 3 mL, Nebulization, 3 times daily, First dose (after last modification) on Tue01/15/25 at 2000 Start: 01-12-2025 End: 01-15-2025 3 mL, Nebulization, Every 4 hours while awake, First dose on 01/12/25 at 1400 Start: 01-12-2025 End: 01-12-2025 3 mL, Nebulization, Once, On 01/12/25 at 0935, For 1 dose Start: 02-18-2023 End: 02-18-2023 ipratropium-albuterol (Duo-N eb) 0.5-2.5 mg/3 mL nebulizer solution 3 mL Start: 02-16-2023 End: 02-18-2023 3 mL, Nebulization, 3 times daily, First dose on Tue02/16/23 at 1999, Indications: Asthma, COPD Start: 11-06-2022 End: 11-08-2022 [...] Inhalation, EVERY 6 HOURS PRN, Wheezing, Starting [facility] 08/02/19 at 2106 Start: 08-02-2019 albuterol sulf [...] sodium chloride 0.9 % 250 mL IVPB (ADD-Nightmute) (2 sources) Start: 08-07-2023 End: 08-07-2023 azithromycin (Zithromax) 500 mg in sodium chloride 0.9 % 250 mL IVPB (ADD-[place]) 24 hr buPROPion hydrochloride 150 mg extended release oral tablet (20 sources) Aminoketone Start: 01-12-2025 End: 01-23-2025 take 150 mg by mouth once daily 150 mg, Oral, Daily, First dose on 01/12/25 at 1400, Do not crush, chew, or split. Start: 07-16-2024 End: 08-08-2024 take 1 tablet [...] 150 mg, Oral, DAILY, First dose on Tue11/22/19 at 0900 Do not crush or break. [...] 5 02/07/2024 03/08/2024 Active Start: 09-21-2023 End: 01-23-2025 take 1 tablet by mouth twice daily [...] by shanna th three times a day. ceFAZolin 1000 mg injection (1 source) Cephalosporin Antibacterial Start: 12-19-19 End: 12-19-19 ceFAZolin (ANCEF) 1 g in dextrose 5 % 50 mL IVPB (premix) ceFAZolin (Ancef) 2,000 mg in sodium chloride 0.9 % 100 mL IVPB (2 sources) Start: 11-08-19 End: 11-09-19 take 2000 mg intravenously every eight hours [...] 0.9 % 50 mL IVPB Mini-Bag Plus (6 sources) Start: 01-13-20 End: 01-22-20 take 2000 mg intravenously every eight hours 2,000 mg, IntraVENous, at 12.5 mL/hr, Administer over 4 Hours, Every 8 hours, First dose on Tue01/12/25 at 1330, For 28 doses, Mini-Bag Plus bag, Suspected Indication (Select all that apply): Pneumonia (CAP) Start: 08-06-2024 End: 08-08-2024 take 2000 mg [...] 5 06/27/2023 06/06/2024 Discontinued Start: 02-18-2023 End: 01-23-2025 Diclofenac Sodium (Voltaren) 1 % gel Apply [...] Comment on above: Take 1 capsule by [facility] daily for 14 days. Take 1 capsule by [facility] once daily. 0.4 ml enoxaparin sodium 100 mg/ml prefilled syringe (16 sources) Low Molecular Weight Heparin Start: 01-13-20 End: 01-24-20 inject 40 mg by subcutaneous injection every twenty-four hours 40 mg, SubCUTAneous, Every 24 hours scheduled (Daily), First dose on Tue01/12/25 at 1400, Indication of Use: Prophylaxis-DVT/PE, Indications: Prophylaxis of Venous Thromboembolism Start: 07-31-2024 End: 08-08-2024 inject 30 mg by subcutaneous injection every [...] 05-21-2022 End: 05-21-2022 lidocaine-EPINEPHrine (Xylocaine W/EPI) 1 %-1:[id number] injection 10 mL Start: 12-19-2019 End: 12-19-2019 lidocaine-EPINEPHrine 2 perc ent-1:965828 injection 2 ml fentaNYL 0.05 mg/ml injection (3 sources) Opioid Agonist Start: 12-19-2019 End: 12-19-2019 fentaNYL (SUBLIMAZE) injection fluticasone propionate 0.05 mg/actuat metered dose nasal spray (20 sources) Corticosteroid Start: 01-15-2025 End: 01-23-2025 2 spray, Each Nostril, Daily, First dose on Tue01/15/25 at 1100, Shake gently. Before first use, prime pump (press 6 times until fine spray appears). After use, clean tip and replace cap. Start: 07-31-2024 End: 08-08-2024 2 spray, Each Nostril, Daily , First dose on Tue07/31/24 at 0900, Shake [...] , 2 TIMES DAILY, First dose on Olga 11/22/19 at 2100 Start: 12-29-2015 End: 08-06-2022 take [...] 2 Sprays in each nostril once daily. 60 actuat fluticasone propionate 0.25 mg/actuat / salmeterol 0.05 mg/actuat dry powder inhaler (20 sources) Corticosteroid, beta2-Adrenergic Agonist Start: End: take 250 ug by inhalation once daily Fluticasone-Salmetero l 250-50 MCG/ACT aerosol powder Inhale 250 mcg daily. 30 DAY SUPPLY 08/19/2024 01/22/2025 Discontinued (Stop taking at discharge) Start: 04-24-2024 End: 10-21-2024 take 1 puff(s) [...] EACH USE. 1 Each 07/08/2023 01/04/2024 Active 30 actuat fluticasone furoate 0.2 mg/actuat / [...] formoterol fumarate 0.005 mg/actuat / mometasone furoate 0.1 mg/actuat metered dose inhaler (20 sources) Corticosteroid, beta2-Adrenergic Agonist Start: 01-15-2025 End: 01-23-2025 take 2 puff(s) by mouth twice daily 2 puff, Inhalation, 2 times daily, First dose on Tue01/15/25 at 0900, Administer using an inhaler spacer. Rinse mouth with water after use to reduce aftertaste and incidence of candidiasis. Do not swallow. Start: 07-30-2024 End: 08-08-2024 take 2 puff(s) [...] Inhalation, 2 TIMES DAILY, First dose on Tue11/22/19 at 2000 Rinse mouth out with water [...] 600 mg by mouth daily at bedtime. 12 hr guaiFENesin 600 mg extended release oral tablet (18 sources) Start: 01-14-2025 End: 01-23-2025 take 600 mg by mouth twice daily 600 mg, Oral, 2 times daily, First dose on Tue01/14/25 at 0900, Administer with plenty of fluids to ensure proper action. Do not crush, chew, or split. Start: 01-12-2025 End: 01-14-2025 take 1200 mg by mouth twice daily as needed for cough 1,200 mg, Oral, 2 times daily PRN, cough, congestion, Starting on 01/12/25 at 1314, Administer with plenty of fluids to ensure proper action. Do not crush, chew, or split. Start: 08-20-2024 take 2 tablets by mo ut twice daily as needed for cough guaiFENesin [...] (M UCINEX) extended release tablet 600 mg 1 ml HYDROmorphone hydrochloride 1 mg/ml cartridge [...] End: 12-19-2019 lidocaine PF 2 % injection 1 ml LORazepam 2 mg/ml injection (3 sources) Benzodiazepine Start: 01-12-2025 End: 01-12-2025 0.5 mg, IntraVENous, Once, On 01/12/25 at 1130, For 1 dose, For IV doses dilute dose with 1ml NS. Start: 01-12-2025 End: 01-12-2025 0.5 mg, IntraVENous, Once, O n 01/12/25 at 1130, For 1 dose, For IV doses dilute dose with 1ml NS. Start: 11-22-2019 End: 11-22-2019 LORazepam (ATIVAN) tablet 0. 5 mg 50 ml magnesium sulfate 40 mg/ml injection (4 sources) Start: 01-18-2025 End: 01-18-2025 2,000 mg, IntraVENous, at 25 mL/hr, Administer over 2 Hours, Once, On Tue01/18/25 at 0845, For 1 dose, Recommended infusion rate not to exceed 1,000 mg (milligrams) per hour. Start: 09-19-2023 End: 09-19-2023 2,000 mg, IntraVENous, at 25 mL/hr, Administer over 2 Hours, Once, On Tue09/19/23 at 1740, For 1 dose, Recommended infusion rate not to exceed 1,000 mg (milligrams) per hour. methocarbamol 500 mg oral tablet (9 sources) Muscle Relaxant Start: 01-14-2025 End: 01-23-2025 take 1 tablet by mouth every eight hours as needed 500 mg, Oral, Every 8 hours PRN, muscle spasms, Starting on Tue01/14/25 at 1632 Start: 10-16-2023 End: 08-08-2024 take 2 tablets by mouth every eight hours as needed methocarbamol (Robaxin) 500 MG tablet Take 2 tablets (1,000 mg) by mouth every 8 hours as needed for muscle spasms for up to 10 days. 30 tablet 10/16/2023 08/08/2024 Discontinued (Stop taking at discharge) methylPREDNISolone 125 mg injection (7 sources) Corticosteroid Start: 01-14-2025 End: 01-15-2025 take 60 mg intravenously every six hours 60 mg, IntraVENous, Every 6 hours, First dose on Tue01/14/25 at 0630 Start: 07-31-2024 End: 08-02-2024 take 20 mg intravenously every twelve hours 20 mg, IntraVENous, Every 12 hours, First dose on Tue07/31/24 at 0600 Start: 03-16-2020 End: 03-16-2020 methylPREDNISolone sodium (SOLU-MEDROL) injection 125 mg Start: 08-03-2019 End: 08-04-2019 methylPREDNISolone sodium (SOLU-MEDROL) injection 40 mg Start: 08-02-2019 End: 08-02-2019 methylPREDNISolone sodium (SOLU-MEDROL) injection 125 mg 2 ml midazolam 1 mg/ml injection (3 sources) Benzodiazepine Start: 12-19-2019 End: 12-19-2019 midazolam (VERSED) injection mirtazapine 15 mg oral tablet (20 sources) Start: 06-07-2024 End: 12-04-2024 take 1 tablet by mouth once daily at bedtime mirtazapine (REMERON) 30 mg tablet Indications: Moderate episode of recurrent major depressive disorder (HCC) Take 1 tablet by mouth daily at bedtime. 90 tablet 1 06/07/2024 12/04/2024 Active Start: 06-10-2023 End: 01-23-2025 take 1 tablet by mouth once daily [...] tablet (20 sources) Leukotriene Receptor Antagonist Start: 01-12-2025 End: 01-23-2025 take 10 mg by mouth once daily 10 mg, Oral, Nightly, First dose on 01/12/25 at 2100 Start: 2022 End: 08-08-2024 take 1 tablet by mouth once daily at bedtime montelukast (SINGULAIR) 10 mg tablet Take 10 mg by mouth daily at bedtime. 2022 Active Start: 08-02-2019 End: 11-08-2022 take 10 mg by mouth once daily 10 mg, Oral, Nightly, F irst dose on Tue05/21/22 at 2100 Comment on above: Take 10 mg by mouth daily at bedtime. mupirocin 0.02 mg/mg topical ointment (2 sources) RNA Synthetase Inhibitor Antibacterial Start: 01-12-2025 End: 01-17-2025 1 Application, Nasal, 2 times daily, First dose on 01/12/25 at 1400, For 5 days, Apply to: nares, Indications: MRSA Nasal Decolonization 1 ml naloxone hydrochloride 0.4 mg/ml injection (16 sources) Opioid Antagonist Start: 01-12-2025 End: 01-23-2025 Start: 07-30-2024 End: 08-08-2024 0.4 mg, IntraVENous, [...] ondansetron ODT (Zofran-ODT) disintegrating tablet 4 mg (12 sources) Start: 01-13-20 End: 01-24-20 take 1 tablet by mouth every eight hours as needed for nausea and vomiting ondansetron ODT (Zofran-ODT) disintegrating tablet 4 mg Start: 07-30-2024 End: 08-08-2024 take 1 tablet by mouth every eight [...] ondansetron ODT (Zofran-ODT) disintegrating tablet 4 mg palonosetron (ALOXI) injecti on 0.25 mg (4 sources) Start: 02-22-2020 End: 02-22-2020 palonosetron (ALOXI) injecti on 0.25 mg Start: 02-08-2020 End: 02-08-2020 palonosetron (ALOXI) injecti on 0.25 mg Start: 02-01-2020 End: 02-01-2020 palonosetron (ALOXI) injecti on 0.25 mg Start: 01-25-2020 End: 01-25-2020 palonosetron (ALOXI) injecti on 0.25 mg PARoxetine hydrochloride 20 mg oral tablet (20 sources) Serotonin Reuptake Inhibitor Start: 01-12-2025 End: 01-15-2025 take 30 mg by mouth once daily in the morning 30 mg, Oral, Every morning, First dose on 01/12/25 at 1400 Start: 08-09-2024 End: 08-09-2025 take 1 tablet by mouth once daily in the morning PARoxetine (Paxil) 30 MG tablet Take 1 tablet (30 mg) by mouth every morning. 30 tablet 11 08/09/2024 01/16/2025 Discontinued (Entered in error) Start: 08-02-2024 End: 08-08-2024 take 30 mg [...] then increase to full tablet QHS. perflutren protein A microsphere (Optison) 3 mL in sodium chloride (PF) 0.9 % 10 mL IV syringe (2 sources) Start: 09-20-19 End: 09-22-19 0-10 mL, IntraVENous, IMG once PRN, other, Suboptimal echo image, Starting on Tue09/20/23 at 0813, For 1 dose, CV Procedural Medications, Administer via slow IVP for suboptimal echocardiogram enhancement. May administer as divided doses to reach optimal image enhancement polyethylene glycol 3350 21652 mg powder for oral solution (14 sources) Osmotic Laxative Start: 07-31-19 End: 08-09-19 take 17 g by mouth every twenty-four [...] extended release oral tablet (20 sources) Start: 01-17-2025 End: 01-18-2025 40 mEq, Oral, Once, On Tue01/18/25 at 0845, For 1 dose, Best given with food and plenty of water to minimize gastric irritation. Do not crush or chew. Start: 09-21-2023 End: 09-21-2023 40 mEq, Oral, [...] on above: Take 2 tablets by mo [facility] once daily. TAKE 2 TABLETS BY MO [facility] EVERY DAY technetium Tc-99m medronate (Tc-MDP) radio-isotope injection 22 [...] Daily, First dose on 11/06/22 at 1700 Start: 11-20-2021 take 2 puff(s) [...] once daily. INHALE 2 PUFFS BY MO [facility] ONCE DAILY DIRECTED Problems Active Problems Problem [...] 11-07-2019 Chronic Cardiac and circulatory congenital anomalies (20 sources) Patent foramen ovale; Translations: [PFO (patent foramen ovale)] Onset: 09-20-2023 09-20-2023 Chronic Cardiac dysrhythmias (4 sources) Tachycardia; Translations: [Tachycardia, unspecified] Onset: 01-12-2025 01-12-2025 Episodic Chronic obstructive pulmonary disease and bronchiectasis (20 [...] arm weakness] Onset: 11-21-2019 11-21-2019 Episodic Other fractures (1 source) Closed fracture [...] of lung field] Onset: 10-14-2021 Episodic Other lower respiratory disease (2 sources) Hypoxia; Translations: [Hypoxemia] 01-12-2025 Episodic Other lower respiratory disease (2 sources) Hypoxemia; Translations: [Hypoxemia] Onset: 01-12-2025 Episodic Other nervous system disorders (20 sources) Chronic pain syndrome; Translations: [Chronic pain syndrome] Onset: 03-11-2023 Resolved: 03-11-2023 03-11-2023 Chronic Other nervous system disorders (20 sources) Chronic pain; Translations: [Other chronic pain] [...] oxygen] Onset: 09-14-2016 Resolved: 09-23-2016 04-10-2017 Chronic Screening and history of mental health and [...] Unclassified (1 source) OPENED IN ERROR 10-06-2023 Unclassified (1 source) Other acidosis; Translations: [Other acidosis] Onset: 01-12-2025 Urinary tract infections (1 source) Urinary tract infection, site not specified; Translations: [Urinary tract infection, site not specified] Onset: 12-21-2024 Episodic Viral infection (20 sources) Infection due [...] Resolved: 04-13-2018 04-13-2018 Episodic Malaise and fatigue (20 sources) Asthenia; Translations: [Other malaise] Onset: 09-20-2023 [...] 11-06-2022 01-01-2022 Episodic Other connective tissue disease (20 sources) Recurrent falls ; Translations: [Repeated falls] Onset: 09-20-2023 02-13-2023 Episodic Other diseases of veins and lymphatics (2 sources) Other specified disorders of veins; Translations: [Other specified disorders of veins] Onset: 01-01-2022 Episodic Other fractures (20 sources) Compression fracture [...] for closed fracture] Onset: 04-12-2018 Resolved: 11-06-2022 Episodic Other liver diseases (20 sources) Enzyme [...] 04-10-2017 04-10-2017 Episodic Other nervous system disorders (20 sources) Impaired cognition; Translations: [Other symptoms and signs involving cognitive functions and awareness] Onset: 08-03-2024 08-03-2024 Episodic Other nutritional; endocrine; and metabolic disorders (20 sources) Obese class I; Translations: [Obesity, unspecified] Onset: 12-07-2018 Resolved: 03-11-2023 12-07-2018 Chronic Other nutritional; endocrine; and metabolic disorders (20 sources) Unintentional weight loss; Translations: [Abnormal weight loss] Onset: 09-20-2023 09-20-2023 Episodic Other nutritional; endocrine; and metabolic disorders (20 sources) Adult failure to thrive syndrome; Translations: [...] Onset: 11-06-2019 11-07-2019 Episodic Residual codes; unclassified (20 sources) At risk of delirium; Translations: [Other specified personal risk factors, not elsewhere classified] Onset: 08-03-2024 08-03-2024 Episodic Respiratory failure; insufficiency; arrest (adult) (20 sources) Acute on chronic hypoxemic and hypercapnic respiratory failure; Translations: [Acute on chronic respiratory failure with hypoxia and hypercapnia] Onset: 09-14-2016 Resolved: 09-23-2016 09-23-2016 Spondylosis; intervertebral disc disorders; other back problems (20 sources) Sciatica; Translations: [Chronic low back pain] Onset: 04-10-2017 04-10-2017 Episodic Superficial injury; contusion (5 sources) Contusion of right elbow; Translations: [Contusion of right elbow, initial encounter] Onset: 04-27-2024 Episodic Unclassified (20 sources) Patient encounter status; Translations: [Goals of care, counseling/discussion] Resolved: 09-23-2016 09-23-2016 Unclassified (1 source) Other acidosis; Translations: [Other acidosis] Onset: 01-12-2025 Results Test Name Value Interpretation Reference Range Facility 36on 01-24-2025 36 COPD Navigator Note Called patient on home phone. No answer. Left Voicemail. Normal [facility] [id number] 01-22-2025 [id number] [facility] [id number] [facility] - Return [facility] [address] [phone] Returning to Facility [facility] [phone] [facility] [id number] [facility] [id number] [facility] [id number] Transport requested 4PM in Roundtrip. Awaiting time confirmation. [facility] [id number] [facility] Bacteria identified Aer cx N om (Lower resp)Ordered By: Radha Ferguson on 01-22-2025 Gram Stain Result Few Epithelial cells per low power field Abnormal [facility] Gram Stain Result Moderate Polymorphonuclear leukocytes per low power field Abnormal [facility] Gram Stain Result Positive Abnormal [facility] Interpretation and review of laboratory results Abnormal [facility] - Microbiology an d Antimicrobial susceptibilityOrdered By: Radha Ferguson on 01-22-2025 Bacteria identified Aer cx Nom (Lower resp) Few respiratory linus present. [facility] Bacteria identified Aer cx Nom (Lower resp) Rare Pseudomonas aeruginosa Abnormal [facility] Nursing Noteon 01-22-2025 Nursing Note Report called to Marisela at [facility]. Belongings packed and sent with patient, including eye glasses. Patient states dentures were already at [facility], she did not have them during hospitalization. Normal [facility] Progress Noteon 01-22-2025 Progress Note [facility] Progress [facility] Normal [facility] Progress Note Normal [facility] [id number] 01-21-2025 [id number] Normal [facility] Progress Noteon 01-21-2025 Progress Note Normal [facility] Progress Note Normal [facility] Progress Note Normal [facility] Progress Note Normal [facility] [id number] 01-20-2025 [id number] Normal [facility] Progress Noteon 01-20-2025 Progress Note Normal [facility] Progress Note Normal [facility] Progress Note Normal [facility] [id number] 01-19-2025 [id number] Normal [facility] BASIC METABOLIC PANELon 110 Anion gap [Moles/Vol] 9 mmol/L Normal 3-13 [facility] Comment on above: Performed By: #### L [id number] ####Account Services Associate: HANS PAULSON ([phone])[facility] ([facility])[address] [place] [address] Calcium [Mass/Vol] 8.5 mg/dL Low 8.8-10.0 [facility] Comment on above: Performed By: #### L [id number] ####Account Services Associate: HANS PAULSON ([phone])[facility] Chloride [Moles/Vol] 101 mmol/L Normal 98-107 [facility] Comment on above: Performed By: #### L AB15 ####Account Services Associate: HANS PAULSON ([phone])[facility] [place] ([facility])[address] [place] [address] [place] CO2 [Moles/Vol] 32 mmol/L High 23-31 [facility] Comment on above: Performed By: #### L AB15 ####Account Services Associate: HANS PAULSON ([phone])[facility] [place] ([facility])[address] Creatinine [Mass/Vol] 0.58 mg/dL Normal 0.58-1.12 [facility] Comment on above: Performed By: #### L AB15 ####Account Services Associate: HANS PAULSON ([phone])[facility] [place] ([facility])[address] GLOMERULAR FILTRATION RATE ML/MIN/1.73 SQ M.PREDICTED >90.0 Normal >60.0 [facility] Comment on above: Result Comment: Calc ulation based on the Chronic Kidney Disease Epidemiology Collaboration (CKD-EPI) equation refit without adjustment for race Performed By: #### L AB15 ####Account Services Associate: HANS PAULSON ([phone])[facility] [place] ([facility])[address] [place] [address] [place] Glucose [Mass/Vol] 136 mg/dL High 82-115 [facility] Comment on above: Performed By: #### L AB15 ####Account Services Associate: HANS PAULSON ([phone])[facility] [place] ([facility])[address] Potassium [Moles/Vol] 3.9 mmol/L Normal 3.5-5.1 [facility] Comment on above: Result Comment: [facility] potassium values may be up to 0.5 mmol/L lower than serum values. Performed By: #### L AB15 ####Account Services Associate: HANS PAULSON ([phone])[facility] [place] ([facility])[address] [place] [address] [place] Sodium [Moles/Vol] 142 mmol/L Normal 136-145 [facility] Comment on above: Performed By: #### L AB15 ####Account Services Associate: HANS PAULSON ([phone])[facility] ([facility])[address] Urea nitrogen [Mass/Vol] 20 mg/dL Normal 9-23 [facility] Comment on above: Performed By: #### L AB15 ####Account Services Associate: HANS PAULSON ([phone])[facility] ([facility])[address] Basic metabolic 1998 panelon 01-19-2025 Anion gap [Moles/Vol] 9 mmol/L 3 - 13 mmol/L [facility] Calcium [Mass/Vol] 8.5 mg/dL Low 8.8 - 10. 0 mg/dL [facility] Chloride [Moles/Vol] 101 mmol/L 98 - 10 7 mmol/L [facility] CO2 [Moles/Vol] 32 mmol/L High 23 - 31 mmol/L [facility] Creatinine [Mass/Vol] 0.58 mg/dL 0.58 - 1.12 mg/dL [facility] GFR/1.73 sq M.predicted (S/P/Bld) [Vol rate/Area] - PINF [facility] Comment on above: Calculation based on the Chronic Kidney Disease Epidemiology Collaboration (CKD-EPI) equation refit without adjustment for race Glucose [Mass/Vol] 136 mg/dL High 82 - 115 mg/dL [facility] Interpretation and review of laboratory results Abnormal [facility] Potassium [Moles/Vol] 3.9 mmol/L 3.5 - 5.1 mmol/L [facility] Comment on above: Plasma potassium martín ues may be up to 0.5 mmol/L lower than serum values. Sodium [Moles/Vol] 142 mmol/L 136 - 145 mmol/L [facility] Urea nitrogen [Mass/Vol] 20 mg/dL 9 - 23 mg/d L [facility] CBC W Auto Differential pane l (Bld)Ordered By: Crystal Dupont on 01-19-2025 Basophils (Bld) [#/Vol] 0 10*3/uL 0.0 - 0.2 10*3/uL [facility] Basophils/100 WBC (Bld) 0.2 % 0.0 - 2.0 % [facility] Eosinophils (Bld) [#/Vol] 0.2 10*3/uL 0.0 - 0.5 10*3/uL [facility] Eosinophils/100 WBC (Bld) 2.1 % 0.0 - 6.0 % [facility] Erythrocyte distribution width (RBC) [Ratio] 14 % 11.5 - 15.0 % [facility] Hematocrit (Bld) [Volume fraction] 36.5 % 35.0 - 47.0 % [facility] Hemoglobin (Bld) [Mass/Vol] 11 g/dL Low 11.7 - 16.0 g/dL [facility] Immature granulocytes (Bld) [#/Vol] 0 10*3/uL NINF - 0.1 10*3/uL [facility] Immature granulocytes/100 WBC (Bld) 0.4 % 0.0 - 2.0 % [facility] Interpretation and review of laboratory results Abnormal [facility] Lymphocytes (Bld) [#/Vol] 1.3 10*3/uL 1.0 - 4.3 10*3/uL [facility] Lymphocytes/100 WBC (Bld) 16.1 % 15.0 - 45.0 % [facility] MCH (RBC) [Entitic mass] 28.7 pg 26. 0 - 34.0 pg [facility] MCHC (RBC) [Mass/Vol] 30.1 % Low 30.5 - 36.0 % [facility] MCV (RBC) [Entitic vol] 95.3 fL 77.0 - 99.0 fL [facility] Monocytes (Bld) [#/Vol] 0.7 10*3/uL 0.0 - 0.9 10*3/uL [facility] Monocytes/100 WBC (Bld) 8.1 % 5.0 - 13.0 % [facility] Neutrophils (Bld) [#/Vol] 6.1 10*3/uL 1.8 - 7.5 10*3/uL [facility] Neutrophils/100 WBC (Bld) 73.1 % 38.0 - 82.0 % [facility] Nucleated RBC/100 WBC (Bld) [Ratio] 0 % [facility] Platelet mean volume (Bld) [Entitic vol] 9.6 fL 9.0 - 12.7 fL [facility] Platelets (Bld) [#/Vol] 252 10*3/uL 140 - 440 10*3/uL [facility] RBC (Bld) [#/Vol] 3.83 10*6/uL 3.80 - 5.2 0 10*6/uL [facility] WBC (Bld) [#/Vol] 8.3 10*3/uL 3.6 - 10.7 10*3/uL [facility] CBC WITH AUTO DIFFERENTIALon 01-19-2025 Basophils (Bld) [#/Vol] 0.0 10*3/uL Normal 0.0-0.2 [facility] Comment on above: Performed By: #### L [id number] ####Account Services Associate: HANS PAULSON ([phone])[facility] [place] ([facility])[address] Basophils/100 WBC (Bld) 0.2 % Normal 0.0-2.0 [facility] Comment on above: Performed By: #### L [id number] ####Account Services Associate: HANS PAULSON ([phone])[facility] [place] ([facility])[address] Eosinophils (Bld) [#/Vol] 0.2 10*3/uL Normal 0.0-0.5 [facility] Comment on above: Performed By: #### L [id number] ####Account Services Associate: HANS PAULSON ([phone])[facility] [place] ([facility])[address] Eosinophils/100 WBC (Bld) 2.1 % Normal 0.0-6.0 [facility] Comment on above: Performed By: #### L [id number] ####Account Services Associate: HANS PAULSON ([phone])[facility] [place] ([facility])[address] Erythrocyte distribution width (RBC) [Ratio] 14.0 % Normal 11.5-15.0 [facility] Comment on above: Performed By: #### L [id number] ####Account Services Associate: HANS PAULSON ([phone])[facility] [place] ([facility])[address] Hematocrit (Bld) [Volume fraction] 36.5 % Normal 35.0-47.0 [facility] Comment on above: Performed By: #### L [id number] ####Account Services Associate: HANS ALCANTARESCOBAR ([phone])[facility] [place] ([facility])[address] Hemoglobin (Bld) [Mass/Vol] 11.0 g/dL Low 11.7-16.0 [facility] Comment on above: Performed By: #### L [id number] ####Account Services Associate: HANS PAULSON ([phone])[facility] ([facility])[address] IMMATURE GRANS % 0.4 % Normal 0.0-2.0 [facility] Comment on above: Performed By: #### L [id number] ####Account Services Associate: HANS ALCANTARESCOBAR ([phone])[facility] [place] ([facility])[address] IMMATURE GRANS ABSOLUTE 0.0 10*3/uL Normal <0.1 [facility] Comment on above: Performed By: #### L [id number] ####Account Services Associate: HANS PAULSON ([phone])[facility] [place] ([facility])[address] [place] [address] [place] Lymphocytes (Bld) [#/Vol] 1.3 10*3/uL Normal 1.0-4.3 [facility] Comment on above: Performed By: #### L [id number] ####Account Services Associate: HANS PAULSON ([phone])[facility] [place] ([facility])[address] [place] [address] [place] Lymphocytes/100 WBC (Bld) 16.1 % Normal 15.0-45.0 [facility] Comment on above: Performed By: #### L [id number] ####Account Services Associate: HANS PAULSON ([phone])[facility] [place] ([facility])[address] MCH (RBC) [Entitic mass] 28.7 pg Normal 26.0-34.0 [facility] Comment on above: Performed By: #### L [id number] ####Account Services Associate: HANS PAULSON ([phone])[facility] [place] ([facility])[address] MCHC 30.1 % Low 30.5-36.0 [facility] Comment on above: Performed By: #### L [id number] ####Account Services Associate: HANS PAULSON ([id number])[facility] [place] ([facility])[address] MCV (RBC) [Entitic vol] 95.3 fL Normal 77.0-99.0 [facility] Comment on above: Performed By: #### L [id number] ####Account Services Associate: HANS PAULSON ([phone])[facility] [place] ([facility])[address] Monocytes (Bld) [#/Vol] 0.7 10*3/uL Normal 0.0-0.9 [facility] Comment on above: Performed By: #### L [id number] ####Account Services Associate: HANS PAULSON ([phone])[facility] [place] ([facility])[address] Monocytes/100 WBC (Bld) 8.1 % Normal 5.0-13.0 [facility] Comment on above: Performed By: #### L [id number] ####Account Services Associate: HANS PAULSON ([id number])[facility] [place] ([facility])[address] NEUTROPHILS ABSOLUTE 6.1 10*3/uL Normal 1.8-7.5 [facility] Comment on above: Performed By: #### L [id number] ####Account Services Associate: HANS PAULSON ([phone])[facility] [place] ([facility])[address] Neutrophils/100 WBC (Bld) 73.1 % Normal 38.0-82.0 [facility] Comment on above: Performed By: #### L [id number] ####Account Services Associate: HANS PAULSON ([phone])[facility] ([facility])[address] NRBC 0.0 /100 WBCs Normal 0.0-2.0 [facility] Comment on above: Performed By: #### L [id number] ####Account Services Associate: HANS PAULSON ([id number])[facility] ([facility])[address] Platelet mean volume (Bld) [Entitic vol] 9.6 fL Normal 9.0-12.7 [facility] Comment on above: Performed By: #### L [id number] ####Account Services Associate: HANS PAULSON ([phone])[facility] ([facility])[address] Platelets (Bld) [#/Vol] 252 10*3/uL Normal 140-440 [facility] Comment on above: Performed By: #### L [id number] ####Account Services Associate: HANS PAULSON ([phone])[facility] ([facility])[address] RBC (Bld) [#/Vol] 3.83 10*6/uL Normal 3.80-5.20 [facility] Comment on above: Performed By: #### L [id number] ####Account Services Associate: HANS PAULSON ([phone])[facility] ([facility])[address] WBC (Bld) [#/Vol] 8.3 10*3/uL Normal 3.6-10.7 [facility] Comment on above: Performed By: #### L [id number] ####Account Services Associate: HANS PAULSON ([phone])[facility] [place] ([facility])[address] Progress Noteon 01-19-2025 Progress Note Normal [facility] Progress Note Normal [facility] BASIC METABOLIC PANELon 10-3 Anion gap [Moles/Vol] 3 mmol/L Normal 3-13 [facility] Comment on above: Performed By: #### L AB15, [id number] ####Account Services Associate: HANS PAULSON ([id number])[facility] [place] ([facility])[address] Calcium [Mass/Vol] 6.7 mg/dL Low 8.8-10.0 [facility] Comment on above: Performed By: #### L AB15, [id number] ####Account Services Associate: HANS PAULSON ([phone])[facility] [place] ([facility])[address] Chloride [Moles/Vol] 111 mmol/L High 98-107 [facility] Comment on above: Performed By: #### L AB15, [id number] ####Account Services Associate: HANS PAULSON ([phone])[facility] [place] ([facility])[address] CO2 [Moles/Vol] 29 mmol/L Normal 23-31 [facility] Comment on above: Performed By: #### L AB15, [id number] ####Account Services Associate: HANS PAULSON ([phone])[facility] [place] ([facility])[address] Creatinine [Mass/Vol] 0.45 mg/dL Low 0.58-1.12 [facility] Comment on above: Performed By: #### L AB15, [id number] ####Account Services Associate: HANS PAULSON ([phone])[facility] ([facility])[address] GLOMERULAR FILTRATION RATE ML/MIN/1.73 SQ M.PREDICTED >90.0 Normal >60.0 [facility] Comment on above: Result Comment: Calc ulation based on the Chronic Kidney Disease Epidemiology Collaboration (CKD-EPI) equation refit without adjustment for race Performed By: #### L AB15, [id number] ####Account Services Associate: HANS PAULSON ([phone])[facility] [place] ([facility])[address] Glucose [Mass/Vol] 85 mg/dL Normal 82-115 [facility] Comment on above: Performed By: #### L AB15, [id number] ####Account Services Associate: HANS PAULSON ([phone])[facility] ([facility])[address] Potassium [Moles/Vol] 3.1 mmol/L Low 3.5-5.1 [facility] Comment on above: Result Comment: [facility] potassium values may be up to 0.5 mmol/L lower than serum values. Performed By: #### L AB15, [id number] ####Account Services Associate: HANS PAULSON ([id number])[facility] [place] ([facility])[address] Sodium [Moles/Vol] 143 mmol/L Normal 136-145 [facility] Comment on above: Performed By: #### L AB15, [id number] ####Account Services Associate: HANS PAULSON ([phone])[facility] [place] ([facility])[address] Urea nitrogen [Mass/Vol] 17 mg/dL Normal 9-23 [facility] Comment on above: Performed By: #### L AB15, [id number] ####Account Services Associate: HANS PAULSON ([id number])[facility] [place] ([facility])[address] Basic metabolic 1998 panelon 01-18-2025 Anion gap [Moles/Vol] 3 mmol/L 3 - 13 mmol/L [facility] Calcium [Mass/Vol] 6.7 mg/dL Low 8.8 - 10. 0 mg/dL [facility] Chloride [Moles/Vol] 111 mmol/L High 98 - 10 7 mmol/L [facility] [employer] CO2 [Moles/Vol] 29 mmol/L 23 - 31 mmol/L [facility] Creatinine [Mass/Vol] 0.45 mg/dL Low 0.58 - 1.12 mg/dL [facility] GFR/1.73 sq M.predicted (S/P/Bld) [Vol rate/Area] - PINF [facility] Comment on above: Calculation based on the Chronic Kidney Disease Epidemiology Collaboration (CKD-EPI) equation refit without adjustment for race Glucose [Mass/Vol] 85 mg/dL 82 - 115 mg/dL [facility] Interpretation and review of laboratory results Abnormal [facility] Potassium [Moles/Vol] 3.1 mmol/L Low 3.5 - 5.1 mmol/L [facility] Comment on above: Plasma potassium martín ues may be up to 0.5 mmol/L lower than serum values. Sodium [Moles/Vol] 143 mmol/L 136 - 145 mmol/L [facility] [employer] Urea nitrogen [Mass/Vol] 17 mg/dL 9 - 23 mg/d L [facility] CBC W Auto Differential pane l (Bld)on 01-18-2025 Basophils (Bld) [#/Vol] 0 10*3/uL 0.0 - 0.2 10*3/uL [facility] Basophils/100 WBC (Bld) 0.2 % 0.0 - 2.0 % [facility] Eosinophils (Bld) [#/Vol] 0.4 10*3/uL 0.0 - 0.5 10*3/uL [facility] Eosinophils/100 WBC (Bld) 4.3 % 0.0 - 6.0 % [facility] Erythrocyte distribution width (RBC) [Ratio] 13.8 % 11.5 - 15.0 % [facility] Hematocrit (Bld) [Volume fraction] 37.5 % 35.0 - 47.0 % [facility] Hemoglobin (Bld) [Mass/Vol] 11.5 g/dL Low 11.7 - 16.0 g/dL [facility] Immature granulocytes (Bld) [#/Vol] 0 10*3/uL NINF - 0.1 10*3/uL [facility] [employer] Immature granulocytes/100 WBC (Bld) 0.2 % 0.0 - 2.0 % [facility] Interpretation and review of laboratory results Abnormal [facility] [employer] Lymphocytes (Bld) [#/Vol] 1.6 10*3/uL 1.0 - 4.3 10*3/uL [facility] [employer] Lymphocytes/100 WBC (Bld) 19.5 % 15.0 - 45.0 % [facility] MCH (RBC) [Entitic mass] 29.2 pg 26. 0 - 34.0 pg [facility] MCHC (RBC) [Mass/Vol] 30.7 % 30.5 - 36.0 % [facility] [employer] MCV (RBC) [Entitic vol] 95.2 fL 77.0 - 99.0 fL [facility] [employer] Monocytes (Bld) [#/Vol] 0.7 10*3/uL 0.0 - 0.9 10*3/uL [facility] [employer] Monocytes/100 WBC (Bld) 8.4 % 5.0 - 13.0 % [facility] [employer] Neutrophils (Bld) [#/Vol] 5.5 10*3/uL 1.8 - 7.5 10*3/uL [facility] [employer] Neutrophils/100 WBC (Bld) 67.4 % 38.0 - 82.0 % [facility] [employer] Nucleated RBC/100 WBC (Bld) [Ratio] 0 % [facility] [employer] Platelet mean volume (Bld) [Entitic vol] 9.5 fL 9.0 - 12.7 fL [facility] [employer] Platelets (Bld) [#/Vol] 252 10*3/uL 140 - 440 10*3/uL [facility] RBC (Bld) [#/Vol] 3.94 10*6/uL 3.80 - 5.2 0 10*6/uL [facility] [employer] WBC (Bld) [#/Vol] 8.1 10*3/uL 3.6 - 10.7 10*3/uL [facility] CBC WITH AUTO DIFFERENTIALon 01-18-2025 Basophils (Bld) [#/Vol] 0.0 10*3/uL Normal 0.0-0.2 [facility] Comment on above: Performed By: #### L [id number] ####Account Services Associate: HANS PAULSON ([phone])[facility] [place] (SBAB)[address] [place] [address] Basophils/100 WBC (Bld) 0.2 % Normal 0.0-2.0 [facility] Comment on above: Performed By: #### L [id number] ####Account Services Associate: HANS PAULSON ([phone])[facility] [place] (SBHLAB)[address] Eosinophils (Bld) [#/Vol] 0.4 10*3/uL Normal 0.0-0.5 [facility] Comment on above: Performed By: #### L [id number] ####Account Services Associate: HANS PAULSON ([phone])[facility] (SB[facility])[address] Eosinophils/100 WBC (Bld) 4.3 % Normal 0.0-6.0 [facility] Comment on above: Performed By: #### L [id number] ####Account Services Associate: HANS PAULSON ([phone])[facility] [place] [address] Erythrocyte distribution width (RBC) [Ratio] 13.8 % Normal 11.5-15.0 [facility] Comment on above: Performed By: #### L [id number] ####Account Services Associate: HANS PAULSON ([phone])[facility] ([facility])[address] [place] [address] Hematocrit (Bld) [Volume fraction] 37.5 % Normal 35.0-47.0 [facility] Comment on above: Performed By: #### L [id number] ####Account Services Associate: HANS PAULSON ([phone])[facility] (SB[facility])[address] [place] [address] Hemoglobin (Bld) [Mass/Vol] 11.5 g/dL Low 11.7-16.0 [facility] Comment on above: Performed By: #### L [id number] ####Account Services Associate: HANS PAULSON ([phone])[facility] (SB[facility])[address] IMMATURE GRANS % 0.2 % Normal 0.0-2.0 [facility] Comment on above: Performed By: #### L [id number] ####Account Services Associate: HANS ALCANTARESCOBAR ([phone])[facility] (SBAB)[address] IMMATURE GRANS ABSOLUTE 0.0 10*3/uL Normal <0.1 [facility] Comment on above: Performed By: #### L [id number] ####Account Services Associate: HANS PAULSON ([phone])[facility] (SBAB)[address] Lymphocytes (Bld) [#/Vol] 1.6 10*3/uL Normal 1.0-4.3 [facility] Comment on above: Performed By: #### L [id number] ####Account Services Associate: HANS ALCANTARESCOBAR ([phone])[facility] ([facility])[address] [place] [address] Lymphocytes/100 WBC (Bld) 19.5 % Normal 15.0-45.0 [facility] Comment on above: Performed By: #### L [id number] ####Account Services Associate: HANS PAULSON ([phone])[facility] ([facility])[address] [place] [address] MCH (RBC) [Entitic mass] 29.2 pg Normal 26.0-34.0 [facility] Comment on above: Performed By: #### L [id number] ####Account Services Associate: HANS ALCANTARESCOBAR ([phone])[facility])[address] [place] [address] MCHC 30.7 % Normal 30.5-36.0 [facility] Comment on above: Performed By: #### L [id number] ####Account Services Associate: HANS PAULSON ([phone])[facility] ([facility])[address] [place] [address] MCV (RBC) [Entitic vol] 95.2 fL Normal 77.0-99.0 [facility] Comment on above: Performed By: #### L [id number] ####Account Services Associate: HANS PAULSON ([phone])[facility] [place] (SBHLAB)[address] Monocytes (Bld) [#/Vol] 0.7 10*3/uL Normal 0.0-0.9 [facility] Comment on above: Performed By: #### L [id number] ####Account Services Associate: HANS PAULSON ([phone])[facility] [place] (SBHLAB)[address] Monocytes/100 WBC (Bld) 8.4 % Normal 5.0-13.0 S [facility] Comment on above: Performed By: #### L [id number] ####Account Services Associate: HANS PAULSON ([phone])[facility] [place] (SBHLAB)[address] NEUTROPHILS ABSOLUTE 5.5 10*3/uL Normal 1.8-7.5 [facility] Comment on above: Performed By: #### L [id number] ####Account Services Associate: HANS PAULSON ([phone])[facility] [place] (SBHLAB)[address] Neutrophils/100 WBC (Bld) 67.4 % Normal 38.0-82.0 [facility] Comment on above: Performed By: #### L [id number] ####Account Services Associate: HANS PAULSON ([phone])[facility] [place] (SBHLAB)[address] NRBC 0.0 /100 WBCs Normal 0.0-2.0 [facility] Comment on above: Performed By: #### L [id number] ####Account Services Associate: HANS PAULSON ([phone])[facility] [place] (SBHLAB)[address] Platelet mean volume (Bld) [Entitic vol] 9.5 fL Normal 9.0-12.7 [facility] Comment on above: Performed By: #### L [id number] ####Account Services Associate: HANS PAULSON ([phone])[facility] (SBHLAB)[address] Platelets (Bld) [#/Vol] 252 10*3/uL Normal 140-440 [facility] Comment on above: Performed By: #### L [id number] ####Account Services Associate: HANS PAULSON ([phone])[facility] ([facility])[address] RBC (Bld) [#/Vol] 3.94 10*6/uL Normal 3.80-5.20 [facility] Comment on above: Performed By: #### L [id number] ####Account Services Associate: HANS PAULSON ([phone])[facility] (SBHLAB)[address] WBC (Bld) [#/Vol] 8.1 10*3/uL Normal 3.6-10.7 [facility] Comment on above: Performed By: #### L [id number] ####Account Services Associate: HANS PAULSON ([phone])[facility] (HLAB)[address] Laboratory - Chemistry and C hemistry - challengeon 01-18-2025 Magnesium [Mass/Vol] 1.4 mg/dL Low 1.6 - 2 .6 mg/dL [facility] MAGNESIUMon 01-18-2025 Magnesium [Mass/Vol] 1.4 mg/dL Low 1.6-2.6 [facility] Comment on above: Result Comment: KYM Gilmore COMMENTS:Higher values can be expected in females during menses. Performed By: #### L AB15, [id number] ####Account Services Associate: HANS PAULSON ([phone])[facility] (SBAB)[address] Magnesium [Mass/Vol]on 01-18 Interpretation and review of laboratory results Abnormal [facility] Higher values can be expected in females during menses. [facility] Progress Noteon 01-18-2025 Progress Note Normal [facility] Progress Note Normal [facility] Progress Note Normal [facility] [id number] 01-17-2025 [id number] Normal [facility] [id number] Normal [facility] BASIC METABOLIC PANELon 12-21 Anion gap [Moles/Vol] 5 mmol/L Normal 3-13 [facility] Comment on above: Performed By: #### L AB15, [id number] ####Account Services Associate: HANS PAULSON ([phone])[facility] [place] (SBHLAB)[address] Calcium [Mass/Vol] 8.1 mg/dL Low 8.8-10.0 [facility] Comment on above: Performed By: #### L AB15, [id number] ####Account Services Associate: HANS PAULSON ([phone])[facility] [place] (SBHLAB)[address] [place] [address] [place] Chloride [Moles/Vol] 99 mmol/L Normal 98-107 [facility] Comment on above: Performed By: #### L AB15, [id number] ####Account Services Associate: HANS PAULSON ([phone])[facility] [place] (SBHLAB)[address] [place] [address] [place] CO2 [Moles/Vol] 37 mmol/L High 23-31 [facility] Comment on above: Performed By: #### L AB15, [id number] ####Account Services Associate: HANS PAULSON ([phone])[facility] [place] (SBHLAB)[address] [place] [address] [place] Creatinine [Mass/Vol] 0.44 mg/dL Low 0.58-1.12 [facility] Comment on above: Performed By: #### L AB15, [id number] ####Account Services Associate: HANS PAULSON ([phone])[facility] [place] (SBHL[facility])[address] GLOMERULAR FILTRATION RATE ML/MIN/1.73 SQ M.PREDICTED >90.0 Normal >60.0 [facility] Comment on above: Result Comment: Calc ulation based on the Chronic Kidney Disease Epidemiology Collaboration (CKD-EPI) equation refit without adjustment for race Performed By: #### L AB15, [id number] ####Account Services Associate: HANS PAULSON ([phone])[facility] Glucose [Mass/Vol] 102 mg/dL Normal 82-115 [facility] Comment on above: Performed By: #### L AB15, [id number] ####Account Services Associate: HANS PAULSON ([phone])[facility])[address] Potassium [Moles/Vol] 3.3 mmol/L Low 3.5-5.1 [facility] Comment on above: Result Comment: [facility] potassium values may be up to 0.5 mmol/L lower than serum values. Performed By: #### L AB15, [id number] ####Account Services Associate: HANS PAULSON ([phone])[facility])[address] Sodium [Moles/Vol] 141 mmol/L Normal 136-145 [facility] Comment on above: Performed By: #### L AB15, [id number] ####Account Services Associate: HANS PAULSON ([phone])[facility])[address] Urea nitrogen [Mass/Vol] 16 mg/dL Normal 9-23 [facility] Comment on above: Performed By: #### L AB15, [id number] ####Account Services Associate: HANS PAULSON ([phone])[facility] ([facility])[address] Bacteria identified Cx Nom ( Bld)on 01-17-2025 Interpretation and review of laboratory results Normal [facility] Blood Collection Sit e: Right Arm [facility] Blood Collection Sit e: Left Arm [facility] Basic metabolic 1998 panelon 01-17-2025 Anion gap [Moles/Vol] 5 mmol/L 3 - 13 mmol/L [facility] Calcium [Mass/Vol] 8.1 mg/dL Low 8.8 - 10. 0 mg/dL [facility] Chloride [Moles/Vol] 99 mmol/L 98 - 10 7 mmol/L [facility] CO2 [Moles/Vol] 37 mmol/L High 23 - 31 mmol/L [facility] Creatinine [Mass/Vol] 0.44 mg/dL Low 0.58 - 1.12 mg/dL [facility] GFR/1.73 sq M.predicted (S/P/Bld) [Vol rate/Area] - PINF [facility] Comment on above: Calculation based on the Chronic Kidney Disease Epidemiology Collaboration (CKD-EPI) equation refit without adjustment for race Glucose [Mass/Vol] 102 mg/dL 82 - 115 mg/dL [facility] Interpretation and review of laboratory results Abnormal [facility] Potassium [Moles/Vol] 3.3 mmol/L Low 3.5 - 5.1 mmol/L [facility] Comment on above: Plasma potassium martín ues may be up to 0.5 mmol/L lower than serum values. Sodium [Moles/Vol] 141 mmol/L 136 - 145 mmol/L [facility] Urea nitrogen [Mass/Vol] 16 mg/dL 9 - 23 mg/d L [facility] CBC W Auto Differential pane l (Bld)on 01-17-2025 Basophils (Bld) [#/Vol] 0 10*3/uL 0.0 - 0.2 10*3/uL [facility] Basophils/100 WBC (Bld) 0.3 % 0.0 - 2.0 % [facility] Eosinophils (Bld) [#/Vol] 0.1 10*3/uL 0.0 - 0.5 10*3/uL [facility] Eosinophils/100 WBC (Bld) 2 % 0.0 - 6.0 % [facility] Erythrocyte distribution width (RBC) [Ratio] 13.7 % 11.5 - 15.0 % [facility] Hematocrit (Bld) [Volume fraction] 35.7 % 35.0 - 47.0 % [facility] Hemoglobin (Bld) [Mass/Vol] 11 g/dL Low 11.7 - 16.0 g/dL [facility] [employer] Immature granulocytes (Bld) [#/Vol] 0 10*3/uL NINF - 0.1 10*3/uL [facility] [employer] Immature granulocytes/100 WBC (Bld) 0.1 % 0.0 - 2.0 % [facility] Interpretation and review of laboratory results Abnormal [facility] Lymphocytes (Bld) [#/Vol] 1.5 10*3/uL 1.0 - 4.3 10*3/uL [facility] [employer] Lymphocytes/100 WBC (Bld) 20.5 % 15.0 - 45.0 % [facility] MCH (RBC) [Entitic mass] 29.2 pg 26. 0 - 34.0 pg [facility] MCHC (RBC) [Mass/Vol] 30.8 % 30.5 - 36.0 % [facility] MCV (RBC) [Entitic vol] 94.7 fL 77.0 - 99.0 fL [facility] [employer] Monocytes (Bld) [#/Vol] 0.7 10*3/uL 0.0 - 0.9 10*3/uL [facility] Monocytes/100 WBC (Bld) 9.4 % 5.0 - 13.0 % [facility] Neutrophils (Bld) [#/Vol] 4.8 10*3/uL 1.8 - 7.5 10*3/uL [facility] Neutrophils/100 WBC (Bld) 67.7 % 38.0 - 82.0 % [facility] Nucleated RBC/100 WBC (Bld) [Ratio] 0 % [facility] [employer] Platelet mean volume (Bld) [Entitic vol] 9.5 fL 9.0 - 12.7 fL [facility] [employer] Platelets (Bld) [#/Vol] 205 10*3/uL 140 - 440 10*3/uL [facility] RBC (Bld) [#/Vol] 3.77 10*6/uL Low 3.80 - 5.2 0 10*6/uL [facility] [employer] WBC (Bld) [#/Vol] 7.1 10*3/uL 3.6 - 10.7 10*3/uL [facility] CBC WITH AUTO DIFFERENTIALon 01-17-2025 Basophils (Bld) [#/Vol] 0.0 10*3/uL Normal 0.0-0.2 [facility] Comment on above: Performed By: #### L [id number] ####Account Services Associate: HANS PAULSON ([phone])[facility] [place] (SBHLAB)[address] Basophils/100 WBC (Bld) 0.3 % Normal 0.0-2.0 [facility] Comment on above: Performed By: #### L [id number] ####Account Services Associate: HANS PAULSON ([phone])[facility] [place] (SBHLAB)[address] Eosinophils (Bld) [#/Vol] 0.1 10*3/uL Normal 0.0-0.5 [facility] Comment on above: Performed By: #### L [id number] ####Account Services Associate: HANS PAULSON ([phone])[facility] [place] (SB[facility])[address] Eosinophils/100 WBC (Bld) 2.0 % Normal 0.0-6.0 [facility] Comment on above: Performed By: #### L [id number] ####Account Services Associate: HANS PAULSON ([phone])[facility] [place] (SBHLAB)[address] [place] [address] Erythrocyte distribution width (RBC) [Ratio] 13.7 % Normal 11.5-15.0 [facility] Comment on above: Performed By: #### L [id number] ####Account Services Associate: HANS PAULSON ([phone])[facility] [place] (SBHLAB)[address] [place] [address] Hematocrit (Bld) [Volume fraction] 35.7 % Normal 35.0-47.0 [facility] Comment on above: Performed By: #### L [id number] ####Account Services Associate: HANS PAULSON ([phone])[facility] [place] (SBHL[facility])[address] [place] [address] Hemoglobin (Bld) [Mass/Vol] 11.0 g/dL Low 11.7-16.0 [facility] Comment on above: Performed By: #### L [id number] ####Account Services Associate: HANS PAULSON ([phone])[facility] (SB[facility])[address] IMMATURE GRANS % 0.1 % Normal 0.0-2.0 [facility] Comment on above: Performed By: #### L [id number] ####Account Services Associate: HANS PAULSON ([phone])[facility] (SB[facility])[address] IMMATURE GRANS ABSOLUTE 0.0 10*3/uL Normal <0.1 [facility] Comment on above: Performed By: #### L [id number] ####Account Services Associate: HANS PAULSON ([phone])[facility] (SBAB)[address] [place] [address] Lymphocytes (Bld) [#/Vol] 1.5 10*3/uL Normal 1.0-4.3 [facility] Comment on above: Performed By: #### L [id number] ####Account Services Associate: HANS PAULSON ([phone])[facility] (SBAB)[address] [place] [address] Lymphocytes/100 WBC (Bld) 20.5 % Normal 15.0-45.0 [facility] Comment on above: Performed By: #### L [id number] ####Account Services Associate: HANS PAULSON ([phone])[facility] ([facility])[address] [place] [address] MCH (RBC) [Entitic mass] 29.2 pg Normal 26.0-34.0 [facility] Comment on above: Performed By: #### L [id number] ####Account Services Associate: HANS PAULSON ([phone])[facility] (SBHLAB)[address] MCHC 30.8 % Normal 30.5-36.0 [facility] Comment on above: Performed By: #### L [id number] ####Account Services Associate: HANS PAULSON ([phone])[facility] [place] (SBHLAB)[address] MCV (RBC) [Entitic vol] 94.7 fL Normal 77.0-99.0 [facility] Comment on above: Performed By: #### L [id number] ####Account Services Associate: HANS PAULSON ([phone])[facility] [place] (SB[facility])[address] Monocytes (Bld) [#/Vol] 0.7 10*3/uL Normal 0.0-0.9 [facility] Comment on above: Performed By: #### L [id number] ####Account Services Associate: HANS PAULSON ([phone])[facility] [place] (SB[facility])[address] Monocytes/100 WBC (Bld) 9.4 % Normal 5.0-13.0 [facility] Comment on above: Performed By: #### L [id number] ####Account Services Associate: HANS PAULSON ([phone])[facility] [place] (SB[facility])[address] NEUTROPHILS ABSOLUTE 4.8 10*3/uL Normal 1.8-7.5 [facility] Comment on above: Performed By: #### L [id number] ####Account Services Associate: HANS PAULSON ([phone])[facility] [place] (SB[facility])[address] Neutrophils/100 WBC (Bld) 67.7 % Normal 38.0-82.0 [facility] Comment on above: Performed By: #### L [id number] ####Account Services Associate: HANS PAULSON ([phone])[facility] [place] (SB[facility])[address] NRBC 0.0 /100 WBCs Normal 0.0-2.0 [facility] Comment on above: Performed By: #### L [id number] ####Account Services Associate: HANS PAULSON ([phone])[facility] (SBHLAB)[address] Platelet mean volume (Bld) [Entitic vol] 9.5 fL Normal 9.0-12.7 [facility] Comment on above: Performed By: #### L [id number] ####Account Services Associate: HANS PAULSON ([phone])[facility] (SBHLAB)[address] Platelets (Bld) [#/Vol] 205 10*3/uL Normal 140-440 [facility] Comment on above: Performed By: #### L [id number] ####Account Services Associate: HANS PAULSON ([phone])[facility] (SBHLAB)[address] [place] [address] RBC (Bld) [#/Vol] 3.77 10*6/uL Low 3.80-5.20 [facility] Comment on above: Performed By: #### L [id number] ####Account Services Associate: HANS PAULSON ([phone])[facility] (SBHLAB)[address] [place] [address] WBC (Bld) [#/Vol] 7.1 10*3/uL Normal 3.6-10.7 [facility] Comment on above: Performed By: #### L [id number] ####Account Services Associate: HANS PAULSON ([phone])[facility] (SBHLAB)[address] [place] [address] Laboratory - Chemistry and C hemistry - challengeon 01-17-2025 Magnesium [Mass/Vol] 1.8 mg/dL 1.6 - 2 .6 mg/dL [facility] Laboratory - Microbiology an d Antimicrobial susceptibilityon 01-17-2025 Bacteria identified Cx Nom (Bld) No growth at 5 days [facility] MAGNESIUMon 01-17-2025 Magnesium [Mass/Vol] 1.8 mg/dL Normal 1.6-2.6 [facility] Comment on above: Result Comment: KYM R COMMENTS:Higher values can be expected in females during menses. Performed By: #### L AB15, [id number] ####Account Services Associate: HANS PAULSON ([phone])[facility] (SBAB)[address] Magnesium [Mass/Vol]on 01-17 Interpretation and review of laboratory results Normal [facility] Higher values can be expected in females during menses. [facility] Progress Noteon 01-17-2025 Progress Note Normal [facility] Progress Note Normal [facility] Progress Note Normal [facility] 25-hydroxyvitamin D3 [Mass/V ol]on 01-16-2025 Interpretation and review of laboratory results Normal [facility] Target concentration : 30 - 40 ng/mL; toxicity seen at concentrations >100 ng/mL Less than 20 ng/mL: Indicative of Vit D deficiency Test performed by [employer], measuring Total Vitamin D, not individual fractions. [facility] [id number] 01-16-2025 [id number] Normal [facility] BASIC METABOLIC PANELon 12-20 Anion gap [Moles/Vol] 9 mmol/L Normal 3-13 [facility] Comment on above: Performed By: #### L AB15 ####Account Services Associate: HANS PAULSON ([phone])[facility] (SBHLAB)[address] [place] [address] Calcium [Mass/Vol] 8.4 mg/dL Low 8.8-10.0 [facility] Comment on above: Performed By: #### L AB15 ####Account Services Associate: HANS PAULSON ([phone])[facility] (SBHLAB)[address] Chloride [Moles/Vol] 100 mmol/L Normal 98-107 [facility] Comment on above: Performed By: #### L AB15 ####Account Services Associate: HANS PAULSON ([phone])[facility] (SBHLAB)[address] [place] [address] [place] CO2 [Moles/Vol] 33 mmol/L High 23-31 [facility] Comment on above: Performed By: #### L AB15 ####Account Services Associate: HANS PAULSON ([phone])[facility] (SBHLAB)[address] Creatinine [Mass/Vol] 0.52 mg/dL Low 0.58-1.12 [facility] Comment on above: Performed By: #### L AB15 ####Account Services Associate: HANS PAULSON ([phone])[facility] (SBHLAB)[address] GLOMERULAR FILTRATION RATE ML/MIN/1.73 SQ M.PREDICTED >90.0 Normal >60.0 [facility] Comment on above: Result Comment: Calc ulation based on the Chronic Kidney Disease Epidemiology Collaboration (CKD-EPI) equation refit without adjustment for race Performed By: #### L AB15 ####Account Services Associate: HANS PAULSON ([phone])[facility] (SBHLAB)[address] Glucose [Mass/Vol] 90 mg/dL Normal 82-115 [facility] Comment on above: Performed By: #### L AB15 ####Account Services Associate: HANS PAULSON ([phone])[facility] (SBHLAB)[address] [place] [address] [place] Potassium [Moles/Vol] 3.7 mmol/L Normal 3.5-5.1 [facility] Comment on above: Result Comment: [facility] potassium values may be up to 0.5 mmol/L lower than serum values. Performed By: #### L AB15 ####Account Services Associate: HANS PAULSON ([phone])[facility] (SBHLAB)[address] [place] [address] [place] Sodium [Moles/Vol] 142 mmol/L Normal 136-145 [facility] Comment on above: Performed By: #### L AB15 ####Account Services Associate: HANS PAULSON ([phone])[facility] [place] (SBHLAB)[address] Urea nitrogen [Mass/Vol] 22 mg/dL Normal 9-23 [facility] Comment on above: Performed By: #### L [id number] ####Account Services Associate: HANS ALCANTARESCOBAR ([phone])[facility] RICKS (SBHLAB)[address] Basic metabolic 1998 panelon 01-16-2025 Anion gap [Moles/Vol] 9 mmol/L 3 - 13 mmol/L [facility] Calcium [Mass/Vol] 8.4 mg/dL Low 8.8 - 10. 0 mg/dL [facility] Chloride [Moles/Vol] 100 mmol/L 98 - 10 7 mmol/L [facility] CO2 [Moles/Vol] 33 mmol/L High 23 - 31 mmol/L [facility] Creatinine [Mass/Vol] 0.52 mg/dL Low 0.58 - 1.12 mg/dL [facility] GFR/1.73 sq M.predicted (S/P/Bld) [Vol rate/Area] - PINF [facility] Comment on above: Calculation based on the Chronic Kidney Disease Epidemiology Collaboration (CKD-EPI) equation refit without adjustment for race Glucose [Mass/Vol] 90 mg/dL 82 - 115 mg/dL [facility] Interpretation and review of laboratory results Abnormal [facility] Potassium [Moles/Vol] 3.7 mmol/L 3.5 - 5.1 mmol/L [facility] Comment on above: Plasma potassium martín ues may be up to 0.5 mmol/L lower than serum values. Sodium [Moles/Vol] 142 mmol/L 136 - 145 mmol/L [facility] Urea nitrogen [Mass/Vol] 22 mg/dL 9 - 23 mg/d L [facility] Consulton 01-16-2025 Consult Normal [facility] Laboratory - Chemistry and C hemistry - challengeon 01-16-2025 25-hydroxyvitamin D3 [Mass/Vol] 24 ng/mL 20 - 50 ng/mL [facility] Nursing Noteon 01-16-2025 Nursing Note Normal [facility] PNEUMONIA PCR PANELon 10-29- 2025 PNEUMONIA PCR PANEL Normal [facility] Comment on above: Performed By: #### L [id number] ####Account Services Associate: AMELIE ELIZABETH ([phone])[facility] (SACLAB)[address] [place] [address] Progress Noteon 01-16-2025 Progress Note Normal [facility] Progress Note Normal [facility] RESPIRATORY CULTURE AND STAI Non 01-16-2025 RESPIRATORY CULTURE AND STAIN Normal [facility] Comment on above: Performed By: #### L [id number] ####Account Services Associate: AMELIE ELIZABETH ([phone])[facility] (SACLAB)[address] [place] [address] Respiratory pathogens DNA an d RNA panel MILANA+non-probe (Lower resp)on 01-16-2025 Acinetobacter baumannii complex Not detected Not Detected [facility] Adenovirus Not detected Not Detected [facility] C. pneumoniae DNA MILANA+non-probe Ql (Lower resp) Not detected Not Detected [facility] Enterobacter cloacae complex Not detected Not Detected [facility] Escherichia coli Not detected Not Detected [facility] FLUAV RNA MILANA+non-probe Ql (Lower resp) Not detected Not Detected [facility] FLUBV RNA MILANA+non-probe Ql (Lower resp) Not detected Not Detected [facility] Haemophilus influenzae Not detected Not Detecte d [facility] Human Metapneumovirus Not detected Not Detected [facility] Human Rhinovirus/Enterovirus Not detected Not Detected [facility] Interpretation and review of laboratory results Abnormal [facility] Klebsiella (Enterobacter) aerogenes Not detected Not Detected [facility] ealt Klebsiella oxytoca Not detected Not Detected [facility] Klebsiella pneumoniae Not detected Not Detected [facility] L. pneumophila DNA MILANA+non-probe Ql (Lower resp) Not detected Not Detected [facility] Moraxella catarrhalis Not detected Not Detected [facility] Mycoplasma pneumoniae Not detected Not Detected [facility] Parainfluenza virus Not detected Not Detected [facility] Proteus spp Not detected Not Detected [facility] lt Pseudomonas aeruginosa Detected Abnormal Not Detected [facility] RSV RNA MILANA+probe Ql (Resp) Not detected Not Detected [facility] S. agalactiae DNA MILANA+non-probe Ql (Sput) Not detected Not Detected [facility] SARS-CoV-2 (COVID-19) RNA MILANA+non-probe Ql (Nph) Not detected Not Detected [facility] SARS-CoV-2 (COVID-19) RNA MILANA+probe Ql (Unsp spec) Methodology: Multiplex PCR This panel does not test for SARS-CoV-2 (Covid-19). The following antimicrobial resistance gene is reported if the appropriate organism is detected: mecA. The following antimicrobial resistance genes are reported if detected and the appropriate organisms are detected: CTX-M, IMP, KPC, NDM, OXA-48-like, and VIM. [facility] Serratia marcescens Not detected Not Detected S [facility] Staphylococcus aureus Not detected Not Detected [facility] Streptococcus pneumoniae Not detected Not Detec tommy [facility] Streptococcus pyogenes Not detected Not Detecte d [facility] VITAMIN D DEFICIENCY SCREENI NG (VIT D 25)on 01-16-2025 VIT D 25-OH, TOTAL 24 ng/mL Normal See comment [facility] Comment on above: Result Comment: KYM Gilmore COMMENTS:Target concentration: 30 - 40 ng/mL; toxicity seen at concentrations >100 ng/mLLess than 20 ng/mL: Indicative of Vit D deficiencyTest performed by [employer], measuring Total Vitamin D, not individual fractions. Performed By: #### L [id number] ####Account Services Associate: HANS PAULSON ([phone])[facility] (SBHLAB)[address] [place] [address] BASIC METABOLIC PANELon 10-2 Anion gap [Moles/Vol] 6 mmol/L Normal 3-13 [facility] Comment on above: Performed By: #### L AB113, LAB15, [id number] ####Account Services Associate: HANS PAULSON ([phone])[facility] (SBHLAB)[address] Calcium [Mass/Vol] 8.7 mg/dL Low 8.8-10.0 [facility] Comment on above: Performed By: #### L AB113, LAB15, [id number] ####Account Services Associate: HANS PAULOSN ([phone])[facility] (SBHLAB)[address] Chloride [Moles/Vol] 100 mmol/L Normal 98-107 [facility] Comment on above: Performed By: #### L AB113, LAB15, [id number] ####Account Services Associate: HANS PAULSON ([phone])[facility] (SBHLAB)[address] CO2 [Moles/Vol] 35 mmol/L High 23-31 [facility] Comment on above: Performed By: #### L AB113, LAB15, [id number] ####Account Services Associate: HANS PAULSON ([phone])[facility] (SBHLAB)[address] Creatinine [Mass/Vol] 0.52 mg/dL Low 0.58-1.12 [facility] Comment on above: Performed By: #### L AB113, LAB15, [id number] ####Account Services Associate: HANS PAULSON ([phone])[facility] (SBHLAB)[address] GLOMERULAR FILTRATION RATE ML/MIN/1.73 SQ M.PREDICTED >90.0 Normal >60.0 [facility] Comment on above: Result Comment: Calc ulation based on the Chronic Kidney Disease Epidemiology Collaboration (CKD-EPI) equation refit without adjustment for race Performed By: #### L AB113, LAB15, [id number] ####Account Services Associate: HANS PAULSON ([phone])[facility] (SBHLAB)[address] Glucose [Mass/Vol] 148 mg/dL High 82-115 [facility] Comment on above: Performed By: #### L AB113, LAB15, [id number] ####Account Services Associate: HANS PAULSON ([phone])[facility] (SBHLAB)[address] Potassium [Moles/Vol] 4.3 mmol/L Normal 3.5-5.1 [facility] Comment on above: Result Comment: [facility] potassium values may be up to 0.5 mmol/L lower than serum values. Performed By: #### L AB113, LAB15, [id number] ####Account Services Associate: HANS WALDROPIVELISSE ([phone])[facility] (SBHLAB)[address] Sodium [Moles/Vol] 141 mmol/L Normal 136-145 [facility] Comment on above: Performed By: #### L AB113, LAB15, [id number] ####Account Services Associate: HANS WALDROPIVELISSE ([phone])[facility] (HLAB)[address] Urea nitrogen [Mass/Vol] 18 mg/dL Normal 9-23 [facility] Comment on above: Performed By: #### L AB113, LAB15, [id number] ####Account Services Associate: HANS WALDROPIVELISSE ([phone])[facility] ([facility])[address] [place] [address] BLOOD GAS, VENOUSon 01-16-20 25 AMOUNT OF OXYGEN 6 Normal [facility] Comment on above: Result Comment: KYM Gilmore COMMENTS:Assessment of oxygenation is best done with an arterial blood gas determination. Reference ranges for pO2, bicarbonate, and base excess are for mixed venous blood. Specimens drawn from a peripheral vein will often have higher values. Performed By: #### L AB79 ####Account Services Associate: HANS ALCANTARESCOBAR ([phone])[facility] (SBHLAB)[address] [place] [address] Base excess Calc (BldV) [Moles/Vol] 9.5 mmol/L High -3.0-3.0 [facility] Comment on above: Performed By: #### L AB79 ####Account Services Associate: HANS PAULSON ([phone])[facility] ([facility])[address] CO2 [Moles/Vol] 39.0 mmol/L High 23.0-30.0 [facility] Comment on above: Performed By: #### L AB79 ####Account Services Associate: HANS ALCANTARESCOBAR ([phone])[facility] (SBHLAB)[address] [place] [address] [place] HCO3 (Bld) [Moles/Vol] 37.0 mmol/L High 21.0-30.0 S [facility] Comment on above: Performed By: #### L AB79 ####Account Services Associate: HANS PAULSON ([phone])[facility] [place] (SBHLAB)[address] Hemoglobin (Bld) [Mass/Vol] 12.0 g/dL Normal Screen only [facility] Comment on above: Performed By: #### L AB79 ####Account Services Associate: HANS PAULSON ([phone])[facility]A [facility]BM[facility]ILLA [facility] HOSPITALN (SBHLAB)[address] OXYGEN (MM HG) IN VENOUS BLOOD 52.5 mm Hg Normal [facility] Comment on above: Performed By: #### L AB79 ####Account Services Associate: HANS PAULSON ([phone])[facility]ENTERA [facility] (SBHLAB)[address] OXYGEN SATURATION (%) IN VENOUS BLOOD 86.5 % Normal [facility] Comment on above: Performed By: #### L AB79 ####Account Services Associate: HANS PAULSON ([phone])[facility]A [facility]ITALN (SBHLAB)[address] PCO2, VICKY 65.6 mm Hg High 35.0-53.0 [facility] Comment on above: Performed By: #### L AB79 ####Account Services Associate: HANS PAULSON ([phone])[facility] (SBHLAB)[address] PH VENOUS 7.369 Normal 7.320-7.420 [facility] Comment on above: Performed By: #### L AB79 ####Account Services Associate: HANS PAULSON ([phone])[facility]A [facility] (SBHLAB)[address] SOURCE OF OXYGEN Nasal Cannula (LPM) Normal [facility] Comment on above: Performed By: #### L AB79 ####Account Services Associate: HANS PAULSON ([phone])[facility] ([facility])[address] [place] [address] Basic metabolic 1998 panelon 01-15-2025 Anion gap [Moles/Vol] 6 mmol/L 3 - 13 mmol/L [facility] Calcium [Mass/Vol] 8.7 mg/dL Low 8.8 - 10. 0 mg/dL [facility] Chloride [Moles/Vol] 100 mmol/L 98 - 10 7 mmol/L [facility] CO2 [Moles/Vol] 35 mmol/L High 23 - 31 mmol/L [facility] Creatinine [Mass/Vol] 0.52 mg/dL Low 0.58 - 1.12 mg/dL [facility] GFR/1.73 sq M.predicted (S/P/Bld) [Vol rate/Area] - PINF [facility] Comment on above: Calculation based on the Chronic Kidney Disease Epidemiology Collaboration (CKD-EPI) equation refit without adjustment for race Glucose [Mass/Vol] 148 mg/dL High 82 - 115 mg/dL [facility] Potassium [Moles/Vol] 4.3 mmol/L 3.5 - 5.1 mmol/L [facility] Comment on above: Plasma potassium martín ues may be up to 0.5 mmol/L lower than serum values. Sodium [Moles/Vol] 141 mmol/L 136 - 145 mmol/L [facility] Urea nitrogen [Mass/Vol] 18 mg/dL 9 - 23 mg/d L [facility] CBC (HEMOGRAM)on 01-15-2025 Erythrocyte distribution width (RBC) [Ratio] 13.5 % Normal 11.5-15.0 [facility] Comment on above: Performed By: #### L [id number] ####Account Services Associate: HANS PAULSON ([phone])[facility] (SBAB)[address] [place] [address] Hematocrit (Bld) [Volume fraction] 35.6 % Normal 35.0-47.0 [facility] Comment on above: Performed By: #### L AB294 ####Account Services Associate: HANS PAULSON ([phone])[facility]ENTERNorma VILARaimundo (SBHLAB)[address] Hemoglobin (Bld) [Mass/Vol] 10.9 g/dL Low 11.7-16.0 [facility] Comment on above: Performed By: #### L AB294 ####Account Services Associate: HANS PAULSON ([phone])[facility]ENTERNorma BRANCHMESILLA VALLEY HOSPITALRaimundo (SBHLAB)[address] MCH (RBC) [Entitic mass] 29.3 pg Normal 26.0-34.0 [facility] Comment on above: Performed By: #### L AB294 ####Account Services Associate: HANS PAULSON ([phone])[facility] (SBHLAB)[address] MCHC 30.6 % Normal 30.5-36.0 [facility] Comment on above: Performed By: #### L AB294 ####Account Services Associate: HANS PAULSON ([phone])[facility]ERNorma [facility]DIGN[facility] (SBHLAB)[address] MCV (RBC) [Entitic vol] 95.7 fL Normal 77.0-99.0 S [facility] Comment on above: Performed By: #### L AB294 ####Account Services Associate: HANS PAULSON ([phone])[facility] (SBHLAB)[address] Platelet mean volume (Bld) [Entitic vol] 9.6 fL Normal 9.0-12.7 [facility] Comment on above: Performed By: #### L AB294 ####Account Services Associate: HANS PAULSON ([phone])[facility] (SBHLAB)[address] Platelets (Bld) [#/Vol] 185 10*3/uL Normal 140-440 [facility] Comment on above: Performed By: #### L AB294 ####Account Services Associate: HANS PAULSON ([phone])[facility]A JOSE CARLOSMESILLA VALLEY HOSPITALN (SBHLAB)[address] RBC (Bld) [#/Vol] 3.72 10*6/uL Low 3.80-5.20 [facility] Comment on above: Performed By: #### L AB294 ####Account Services Associate: HANS PAULSON ([phone])[facility] (SBHLAB)[address] WBC (Bld) [#/Vol] 6.6 10*3/uL Normal 3.6-10.7 [facility] Comment on above: Performed By: #### L AB294 ####Account Services Associate: HANS PAULSON ([phone])[facility] (SBHLAB)[address] CBC panel Auto (Bld)on 01-15 Erythrocyte distribution width (RBC) [Ratio] 13.5 % 11.5 - 15.0 % [facility] Hematocrit (Bld) [Volume fraction] 35.6 % 35.0 - 47.0 % [facility] Hemoglobin (Bld) [Mass/Vol] 10.9 g/dL Low 11.7 - 16.0 g/dL [facility] Interpretation and review of laboratory results Abnormal [facility] MCH (RBC) [Entitic mass] 29.3 pg 26. 0 - 34.0 pg [facility] MCHC (RBC) [Mass/Vol] 30.6 % 30.5 - 36.0 % [facility] MCV (RBC) [Entitic vol] 95.7 fL 77.0 - 99.0 fL [facility] Platelet mean volume (Bld) [Entitic vol] 9.6 fL 9.0 - 12.7 fL [facility] Platelets (Bld) [#/Vol] 185 10*3/uL 140 - 440 10*3/uL [facility] RBC (Bld) [#/Vol] 3.72 10*6/uL Low 3.80 - 5.2 0 10*6/uL [facility] WBC (Bld) [#/Vol] 6.6 10*3/uL 3.6 - 10.7 10*3/uL [facility] Consulton 01-15-2025 Consult Normal [facility] Laboratory - Chemistry and C hemistry - challengeon 01-15-2025 Magnesium [Mass/Vol] 1.8 mg/dL 1.6 - 2 .6 mg/dL [facility] Laboratory - Chemistry and C hemistry - challengeOrdered By: Lynette Huitron on 01-15-2025 Base excess Calc (BldV) [Moles/Vol] 9.5 mmol/L High -3.0 - 3.0 mmol/L [facility] CO2 (BldV) [Partial pressure] 65.6 mm[Hg] High [facility] CO2 [Moles/Vol] 39 mmol/L High 23.0 - 30.0 mmol/L [facility] HCO3 (Bld) [Moles/Vol] 37 mmol/L High 21.0 - 30.0 mmol/L [facility] Oxygen (BldV) [Partial pressure] 52.5 mm[Hg] mm Hg [facility] pH (BldV) 7.369 [pH] 7.320 - 7.420 [facility] Laboratory - Hematology and Cell countsOrdered By: Lynette Huitron on 01-15-2025 Hemoglobin (Bld) [Mass/Vol] 12 g/dL 12.0 - 16.0 g/dl [facility] MAGNESIUMon 01-15-2025 Magnesium [Mass/Vol] 1.8 mg/dL Normal 1.6-2.6 [facility] Comment on above: Result Comment: KYM Gilmore COMMENTS:Higher values can be expected in females during menses. Performed By: #### L AB113, LAB15, [id number] ####Account Services Associate: HANS PAULSNO ([phone])[facility] (SBAB)[address] [place] [address] Magnesium [Mass/Vol]on 01-15 Interpretation and review of laboratory results Normal [facility] Higher values can be expected in females during menses. [facility] No Panel Informationon 01-15 Interpretation and review of laboratory results Abnormal [facility] No Panel InformationOrdered By: Lynette Huitron on 01-15-2025 Amount Of Oxygen 6 [facility] alth Interpretation and review of laboratory results Abnormal [facility] Source Of Oxygen Nasal Cannula (LPM) [facility] Assessment of oxygenation is best done with an arterial blood gas determination. Reference ranges for pO2, bicarbonate, and base excess are for mixed venous blood. Specimens drawn from a peripheral vein will often have higher values. [facility] PHOSPHORUSon 01-15-2025 Phosphate [Mass/Vol] 2.1 mg/dL Low 2.3-4.7 [facility] Comment on above: Performed By: #### L AB113, LAB15, [id number] ####Account Services Associate: HANS PAULSON ([phone])[facility] ([facility])[address] Phosphate [Moles/Vol]on 12-20 Phosphate [Mass/Vol] 2.1 mg/dL Low 2.3 - 4 .7 mg/dL [facility] Progress Noteon 01-15-2025 Progress [facility] Progress Note Accepted ICU transfe r from Dr. Pires Normal [facility] Vital signsOrdered By: Lynette Huitron on 01-15-2025 Oxygen saturation in Venous blood 86.5 % [facility] BASIC METABOLIC PANELon 12-20 Anion gap [Moles/Vol] 7 mmol/L Normal 3-13 [facility] Comment on above: Performed By: #### L AB15 ####Account Services Associate: HANS PAULSON ([phone])[facility] ([facility])[address] Calcium [Mass/Vol] 8.7 mg/dL Low 8.8-10.0 [facility] Comment on above: Performed By: #### L AB15 ####Account Services Associate: HANS PAULSON ([phone])[facility] ([facility])[address] Chloride [Moles/Vol] 101 mmol/L Normal 98-107 [facility] Comment on above: Performed By: #### L AB15 ####Account Services Associate: HANS PAULSON ([phone])[facility]ILLA [facility]ITALN (SBHLAB)[address] CO2 [Moles/Vol] 36 mmol/L High 23-31 [facility] Comment on above: Performed By: #### L AB15 ####Account Services Associate: HANS PAULSON ([phone])[facility] (SBHLAB)[address] Creatinine [Mass/Vol] 0.55 mg/dL Low 0.58-1.12 [facility] Comment on above: Performed By: #### L AB15 ####Account Services Associate: HANS PAULSON ([phone])[facility] (SBHLAB)[address] GLOMERULAR FILTRATION RATE ML/MIN/1.73 SQ M.PREDICTED >90.0 Normal >60.0 [facility] Comment on above: Result Comment: Calc ulation based on the Chronic Kidney Disease Epidemiology Collaboration (CKD-EPI) equation refit without adjustment for race Performed By: #### L AB15 ####Account Services Associate: HANS PAULSON ([phone])[facility] (HLAB)[address] Glucose [Mass/Vol] 93 mg/dL Normal 82-115 [facility] Comment on above: Performed By: #### L AB15 ####Account Services Associate: HANS PAULSON ([phone])[facility]ILLA [facility]OSPITALN (HLAB)[address] Potassium [Moles/Vol] 4.0 mmol/L Normal 3.5-5.1 [facility] Comment on above: Result Comment: [facility] potassium values may be up to 0.5 mmol/L lower than serum values. Performed By: #### L AB15 ####Account Services Associate: HANS PAULSON ([phone])[facility] (SBHLAB)[address] Sodium [Moles/Vol] 144 mmol/L Normal 136-145 [facility] Comment on above: Performed By: #### L AB15 ####Account Services Associate: HANS PAULSON ([phone])[facility]ENT[facility] [place] ([facility])[address] Urea nitrogen [Mass/Vol] 20 mg/dL Normal 9-23 [facility] Comment on above: Performed By: #### L AB15 ####Account Services Associate: HANS PAULSON ([phone])[facility] ([facility])[address] BLOOD GAS ARTERIALon 27-2 025 AMOUNT OF OXYGEN 45 Normal [facility] Comment on above: Performed By: #### L AB76 ####Account Services Associate: HANS PAULSON ([phone])[facility] [place] ([facility])[address] Base excess Calc (Bld) [Moles/Vol] 9.9 mmol/L High -3.0-3.0 [facility] Comment on above: Performed By: #### L AB76 ####Account Services Associate: HANS PAULSON ([phone])[facility] [place] ([facility])[address] CO2 [Moles/Vol] 38.6 mmol/L High 22.0-28.0 [facility] Comment on above: Performed By: #### L AB76 ####Account Services Associate: HANS PAULSON ([phone])[facility] [place] ([facility])[address] [place] [address] [place] HCO3 (Bld) [Moles/Vol] 36.7 mmol/L High 21.0-27.0 [facility] Comment on above: Performed By: #### L AB76 ####Account Services Associate: HANS PAULSON ([phone])[facility] [place] ([facility])[address] Hemoglobin (Bld) [Mass/Vol] 10.8 g/dL Low Screen only [facility] Comment on above: Performed By: #### L AB76 ####Account Services Associate: HANS PAULSON ([phone])[facility] [place] (SBHLAB)[address] OXYGEN SATURATION (%) IN ARTERIAL BLOOD 94.7 % Low 97.0-99.0 [facility] Comment on above: Performed By: #### L AB76 ####Account Services Associate: HANS PAULSON ([phone])[facility] (SBHLAB)[address] PCO2 ARTERIAL 61.8 mm Hg High 32.0-45.0 [facility] Comment on above: Performed By: #### L AB76 ####Account Services Associate: HANS PAULSON ([phone])[facility] ([facility])[address] PH ARTERIAL 7.391 Normal 7.350-7.450 [facility] [facility] Comment on above: Performed By: #### L [id number] ####Account Services Associate: HANS PAULSON ([phone])[facility] (SBHLAB)[address] PO2 ARTERIAL 73.2 mm Hg Low 83.0-108.0 [facility] Comment on above: Performed By: #### L [id number] ####Account Services Associate: HANS PAULSON ([phone])[facility] (HLAB)[address] SOURCE OF OXYGEN BiPAP Normal [facility] Comment on above: Performed By: #### L [id number] ####Account Services Associate: HANS PAULSON ([phone])[facility] (SBHLAB)[address] Basic metabolic 1998 panelon 01-14-2025 Anion gap [Moles/Vol] 7 mmol/L 3 - 13 mmol/L [facility] Calcium [Mass/Vol] 8.7 mg/dL Low 8.8 - 10. 0 mg/dL [facility] Chloride [Moles/Vol] 101 mmol/L 98 - 10 7 mmol/L [facility] CO2 [Moles/Vol] 36 mmol/L High 23 - 31 mmol/L [facility] Creatinine [Mass/Vol] 0.55 mg/dL Low 0.58 - 1.12 mg/dL [facility] GFR/1.73 sq M.predicted (S/P/Bld) [Vol rate/Area] - PINF [facility] Comment on above: Calculation based on the Chronic Kidney Disease Epidemiology Collaboration (CKD-EPI) equation refit without adjustment for race Glucose [Mass/Vol] 93 mg/dL 82 - 115 mg/dL [facility] Interpretation and review of laboratory results Abnormal [facility] Potassium [Moles/Vol] 4 mmol/L 3.5 - 5.1 mmol/L [facility] Comment on above: Plasma potassium martín ues may be up to 0.5 mmol/L lower than serum values. Sodium [Moles/Vol] 144 mmol/L 136 - 145 mmol/L [facility] Urea nitrogen [Mass/Vol] 20 mg/dL 9 - 23 mg/d L [facility] - Chemistry and C hemistry - challengeOrdered By: Rosa Ruiz on 01-14-2025 Base excess Calc (Bld) [Moles/Vol] 9.9 mmol/L High -3.0 - 3.0 mmol/L [facility] CO2 (Bld) [Partial pressure] 61.8 mm[Hg] High [facility] CO2 [Moles/Vol] 38.6 mmol/L High 22.0 - 28.0 mmol/L [facility] HCO3 (Bld) [Moles/Vol] 36.7 mmol/L High 21.0 - 27.0 mmol/L [facility] Oxygen (Bld) [Partial pressure] 73.2 mm[Hg] Low [facility] pH (Bld) 7.391 [pH] 7.350 - 7.450 [facility] Laboratory - Hematology and Cell countsOrdered By: Rosa Ruiz on 01-14-2025 Hemoglobin (Bld) [Mass/Vol] 10.8 g/dL Low 12.0 - 16.0 g/dl [facility] No Panel InformationOrdered By: Rosa Ruiz on 01-14-2025 Amount Of Oxygen 45 [facility] Interpretation and review of laboratory results Abnormal [facility] Source Of Oxygen BiPAP [facility] alth [facility] Progress Noteon 01-14-2025 Progress [facility] [id number] 01-13-2025 [id number] Normal [facility] BLOOD GAS, VENOUSon 01-14-20 25 AMOUNT OF OXYGEN 55 Normal [facility] Comment on above: Result Comment: KYM Gilmore COMMENTS:Assessment of oxygenation is best done with an arterial blood gas determination. Reference ranges for pO2, bicarbonate, and base excess are for mixed venous blood. Specimens drawn from a peripheral vein will often have higher values. Performed By: #### L [id number] ####Account Services Associate: HANS PAULSON ([phone])[facility] [place] (SBHLAB)[address] [place] [address] Base excess Calc (BldV) [Moles/Vol] 6.3 mmol/L High -3.0-3.0 [facility] Comment on above: Performed By: #### L [id number] ####Account Services Associate: HANS PAULSON ([phone])[facility] (SBHLAB)[address] [place] [address] CO2 [Moles/Vol] 38.1 mmol/L High 23.0-30.0 [facility] Comment on above: Performed By: #### L [id number] ####Account Services Associate: HANS PAULSON ([phone])[facility] (SBHLAB)[address] [place] [address] HCO3 (Bld) [Moles/Vol] 35.6 mmol/L High 21.0-30.0 [facility] Comment on above: Performed By: #### L [id number] ####Account Services Associate: HANS PAULSON ([phone])[facility] (SBHLAB)[address] [place] [address] Hemoglobin (Bld) [Mass/Vol] 11.3 g/dL Low Screen only [facility] Comment on above: Performed By: #### L [id number] ####Account Services Associate: HANS [phone])[facility] [place] (SBHLAB)[address] OXYGEN (MM HG) IN VENOUS BLOOD 35.8 mm Hg Normal [facility] Comment on above: Performed By: #### L [id number] ####Account Services Associate: HANS PAULSON ([phone])[facility] [place] (SBHLAB)[address] OXYGEN SATURATION (%) IN VENOUS BLOOD 63.4 % Normal [facility] Comment on above: Performed By: #### L [id number] ####Account Services Associate: HANS PAULOSN ([phone])[facility] [place] (SBHLAB)[address] PCO2, VICKY 80.8 mm Hg High 35.0-53.0 [facility] Comment on above: Performed By: #### L [id number] ####Account Services Associate: HANS PAULSON ([phone])[facility] [place] (SBHLAB)[address] PH VENOUS 7.262 Low 7.320-7.420 [facility] Comment on above: Performed By: #### L [id number] ####Account Services Associate: HANS PAULSON ([phone])[facility] [place] (SBHLAB)[address] SOURCE OF OXYGEN BiPAP Normal [facility] Comment on above: Performed By: #### L [id number] ####Account Services Associate: HANS PAULSON ([phone])[facility] [place] (SBHLAB)155 [place] [address] [place] CBC W Auto Differential pane l (Bld)Ordered By: Yair Sanchez on 01-13-2025 Basophils (Bld) [#/Vol] 0 10*3/uL 0.0 - 0.2 10*3/uL [facility] Basophils/100 WBC (Bld) 0.1 % 0.0 - 2.0 % [facility] Eosinophils (Bld) [#/Vol] 0 10*3/uL 0.0 - 0.5 10*3/uL [facility] Eosinophils/100 WBC (Bld) 0.2 % 0.0 - 6.0 % [facility] Erythrocyte distribution width (RBC) [Ratio] 13.7 % 11.5 - 15.0 % [facility] Hematocrit (Bld) [Volume fraction] 34.2 % Low 35.0 - 47.0 % [facility] Hemoglobin (Bld) [Mass/Vol] 10.2 g/dL Low 11.7 - 16.0 g/dL [facility] [employer] Immature granulocytes (Bld) [#/Vol] 0 10*3/uL NINF - 0.1 10*3/uL [facility] Immature granulocytes/100 WBC (Bld) 0.3 % 0.0 - 2.0 % [facility] Interpretation and review of laboratory results Abnormal [facility] Lymphocytes (Bld) [#/Vol] 0.8 10*3/uL Low 1.0 - 4.3 10*3/uL [facility] Lymphocytes/100 WBC (Bld) 6.3 % Low 15.0 - 45.0 % [facility] MCH (RBC) [Entitic mass] 29.1 pg 26. 0 - 34.0 pg [facility] MCHC (RBC) [Mass/Vol] 29.8 % Low 30.5 - 36.0 % [facility] MCV (RBC) [Entitic vol] 97.7 fL 77.0 - 99.0 fL [facility] Monocytes (Bld) [#/Vol] 0.9 10*3/uL 0.0 - 0.9 10*3/uL [facility] Monocytes/100 WBC (Bld) 7.3 % 5.0 - 13.0 % [facility] Neutrophils (Bld) [#/Vol] 10.8 10*3/uL High 1.8 - 7.5 10*3/uL [facility] Neutrophils/100 WBC (Bld) 85.8 % High 38.0 - 82.0 % [facility] Nucleated RBC/100 WBC (Bld) [Ratio] 0 % [facility] [employer] Platelet mean volume (Bld) [Entitic vol] 9.7 fL 9.0 - 12.7 fL [facility] Platelets (Bld) [#/Vol] 152 10*3/uL 140 - 440 10*3/uL [facility] RBC (Bld) [#/Vol] 3.5 10*6/uL Low 3.80 - 5.2 0 10*6/uL [facility] WBC (Bld) [#/Vol] 12.5 10*3/uL High 3.6 - 10.7 10*3/uL [facility] CBC WITH AUTO DIFFERENTIALon 01-13-2025 Basophils (Bld) [#/Vol] 0.0 10*3/uL Normal 0.0-0.2 [facility] Comment on above: Performed By: #### L [id number] ####Account Services Associate: HANS PAULSON ([phone])[facility] [place] (SBHLAB)[address] Basophils/100 WBC (Bld) 0.1 % Normal 0.0-2.0 [facility] Comment on above: Performed By: #### L [id number] ####Account Services Associate: HANS PAULSON ([phone])[facility] [place] (SBHLAB)[address] Eosinophils (Bld) [#/Vol] 0.0 10*3/uL Normal 0.0-0.5 [facility] Comment on above: Performed By: #### L [id number] ####Account Services Associate: HANS PAULSON ([phone])[facility] [place] (SBHLAB)[address] Eosinophils/100 WBC (Bld) 0.2 % Normal 0.0-6.0 [facility] Comment on above: Performed By: #### L [id number] ####Account Services Associate: HANS PAULSON ([phone])[facility] [place] (SBHLAB)[address] Erythrocyte distribution width (RBC) [Ratio] 13.7 % Normal 11.5-15.0 [facility] Comment on above: Performed By: #### L [id number] ####Account Services Associate: HANS PAULSON ([phone])[facility] [place] (SBHLAB)[address] [place] [address] [place] Hematocrit (Bld) [Volume fraction] 34.2 % Low 35.0-47.0 [facility] Comment on above: Performed By: #### L [id number] ####Account Services Associate: HANS WALDROPKimESCOBAR ([phone])[facility] ([facility] Hemoglobin (Bld) [Mass/Vol] 10.2 g/dL Low 11.7-16.0 [facility] Comment on above: Performed By: #### L [id number] ####Account Services Associate: HANS LORENE ([phone])[facility] ([facility])[address] IMMATURE GRANS % 0.3 % Normal 0.0-2.0 [facility] Comment on above: Performed By: #### L [id number] ####Account Services Associate: HANS LORENE ([phone])[facility] ([facility])[address] IMMATURE GRANS ABSOLUTE 0.0 10*3/uL Normal <0.1 [facility] Comment on above: Performed By: #### L [id number] ####Account Services Associate: HANS WALDROPIVELISSE ([phone])[facility] ([facility])[address] [place] [address] Lymphocytes (Bld) [#/Vol] 0.8 10*3/uL Low 1.0-4.3 [facility] Comment on above: Performed By: #### L [id number] ####Account Services Associate: HANS WALDROPIVELISSE ([phone])[facility] ([facility])[address] [place] [address] [place] Lymphocytes/100 WBC (Bld) 6.3 % Low 15.0-45.0 [facility] Comment on above: Performed By: #### L [id number] ####Account Services Associate: HANS ALCANTARESCOBAR ([phone])[facility] ([facility])[address] [place] [address] MCH (RBC) [Entitic mass] 29.1 pg Normal 26.0-34.0 [facility] Comment on above: Performed By: #### L [id number] ####Account Services Associate: HANS WALDROPKimESCOBAR ([phone])[facility] [place] (SBHLAB)[address] MCHC 29.8 % Low 30.5-36.0 [facility] Comment on above: Performed By: #### L [id number] ####Account Services Associate: HANS LORENE ([phone])[facility] [place] (SBHLAB)[address] MCV (RBC) [Entitic vol] 97.7 fL Normal 77.0-99.0 [facility] Comment on above: Performed By: #### L [id number] ####Account Services Associate: HANS LORENE ([phone])[facility] [place] (SBHLAB)[address] Monocytes (Bld) [#/Vol] 0.9 10*3/uL Normal 0.0-0.9 [facility] Comment on above: Performed By: #### L [id number] ####Account Services Associate: HANS WALDROPKimESCOBAR ([phone])[facility] [place] (SBHLAB)[address] Monocytes/100 WBC (Bld) 7.3 % Normal 5.0-13.0 [facility] Comment on above: Performed By: #### L [id number] ####Account Services Associate: HANS WALDROPIVELISSE ([phone])[facility] [place] (SBHLAB)[address] NEUTROPHILS ABSOLUTE 10.8 10*3/uL High 1.8-7.5 [facility] Comment on above: Performed By: #### L [id number] ####Account Services Associate: HANS ALCANTARESCOBAR ([phone])[facility] [place] (SBHLAB)[address] Neutrophils/100 WBC (Bld) 85.8 % High 38.0-82.0 [facility] Comment on above: Performed By: #### L [id number] ####Account Services Associate: HANS PAULSON ([phone])[facility] [place] (SBHLAB)[address] NRBC 0.0 /100 WBCs Normal 0.0-2.0 [facility] Comment on above: Performed By: #### L [id number] ####Account Services Associate: HANS PAULSON ([phone])[facility] [place] (SBHLAB)[address] Platelet mean volume (Bld) [Entitic vol] 9.7 fL Normal 9.0-12.7 [facility] Comment on above: Performed By: #### L [id number] ####Account Services Associate: HANS PAULSON ([phone])[facility] [place] (SBHLAB)[address] [place] [address] [place] Platelets (Bld) [#/Vol] 152 10*3/uL Normal 140-440 [facility] Comment on above: Performed By: #### L [id number] ####Account Services Associate: HANS PAULSON ([phone])[facility] [place] (SBHLAB)[address] RBC (Bld) [#/Vol] 3.50 10*6/uL Low 3.80-5.20 [facility] Comment on above: Performed By: #### L [id number] ####Account Services Associate: HANS PAULSON ([phone])[facility] [place] (SBHLAB)[address] WBC (Bld) [#/Vol] 12.5 10*3/uL High 3.6-10.7 [facility] Comment on above: Performed By: #### L [id number] ####Account Services Associate: HANS PAULSON ([phone])[facility] [place] (SBHLAB)[address] COMPREHENSIVE METABOLIC PANE Cory 01-13-2025 Albumin [Mass/Vol] 2.9 g/dL Low 3.1-4.5 [facility] Comment on above: Performed By: #### L [id number] ####Account Services Associate: HANS PAULSON ([phone])[facility] [place] (SBHLAB)[address] ALP [Catalytic activity/Vol] 124 U/L Normal 40-150 [facility] Comment on above: Performed By: #### L [id number] ####Account Services Associate: HANS PAULSON ([phone])[facility] [place] (SBHLAB)[address] ALT [Catalytic activity/Vol] 33 U/L High <30 [facility] Comment on above: Performed By: #### L [id number] ####Account Services Associate: HANS PAULSON ([phone])[facility] [place] (SBHLAB)[address] Anion gap [Moles/Vol] 4 mmol/L Normal 3-13 [facility] Comment on above: Performed By: #### L [id number] ####Account Services Associate: HANS PAULSON ([phone])[facility] [place] (SBHLAB)[address] AST [Catalytic activity/Vol] 27 U/L Normal <34 [facility] Comment on above: Performed By: #### L [id number] ####Account Services Associate: HANS PAULSON ([phone])[facility] [place] (SBHLAB)[address] Bilirubin [Mass/Vol] 0.3 mg/dL Normal <1.2 [facility] Comment on above: Performed By: #### L [id number] ####Account Services Associate: HANS PAULSON ([phone])[facility] [place] (SBHLAB)[address] Calcium [Mass/Vol] 8.6 mg/dL Low 8.8-10.0 [facility] Comment on above: Performed By: #### L [id number] ####Account Services Associate: HANS ALCANTARESCOBAR ([phone])[facility] [place] (SBHLAB)[address] Chloride [Moles/Vol] 101 mmol/L Normal 98-107 [facility] Comment on above: Performed By: #### L [id number] ####Account Services Associate: HANS WALDROPIVELISSE ([phone])[facility] [place] (SBHLAB)[address] CO2 [Moles/Vol] 34 mmol/L High 23-31 [facility] Comment on above: Performed By: #### L [id number] ####Account Services Associate: HANS WALDROPIVELISSE ([phone])[facility] (SBHLAB)[address] Creatinine [Mass/Vol] 0.49 mg/dL Low 0.58-1.12 [facility] Comment on above: Performed By: #### L [id number] ####Account Services Associate: HANS PAULSON ([phone])[facility] (SBHLAB)[address] GLOMERULAR FILTRATION RATE ML/MIN/1.73 SQ M.PREDICTED >90.0 Normal >60.0 [facility] Comment on above: Result Comment: Calc ulation based on the Chronic Kidney Disease Epidemiology Collaboration (CKD-EPI) equation refit without adjustment for race Performed By: #### L [id number] ####Account Services Associate: HANS PAULSON ([phone])[facility] [place] (SBHLAB)[address] [place] [address] [place] Glucose [Mass/Vol] 98 mg/dL Normal 82-115 [facility] Comment on above: Performed By: #### L [id number] ####Account Services Associate: HANS PAULSON ([phone])[facility] [place] (SBHLAB)155 [place] [address] [place] Potassium [Moles/Vol] 4.7 mmol/L Normal 3.5-5.1 [facility] Comment on above: Result Comment: Plas ma potassium values may be up to 0.5 mmol/L lower than serum values. Performed By: #### L [id number] ####Account Services Associate: HANS PAULSON ([phone])[facility] (SBHLAB)[address] Protein [Mass/Vol] 6.4 g/dL Normal 6.4-8.3 [facility] Comment on above: Performed By: #### L [id number] ####Account Services Associate: HANS PAULSON ([phone])[facility] [place] (SBHLAB)[address] Sodium [Moles/Vol] 139 mmol/L Normal 136-145 [facility] Comment on above: Performed By: #### L [id number] ####Account Services Associate: HANS PAULSON ([phone])[facility] (SB[facility]AB)[address] Urea nitrogen [Mass/Vol] 17 mg/dL Normal 9-23 [facility] Comment on above: Performed By: #### L [id number] ####Account Services Associate: HANS PAULSON ([phone])[facility] (SB[facility]AB)[address] Comprehensive metabolic 1998 panelon 01-13-2025 Albumin [Mass/Vol] 2.9 g/dL Low 3.1 - 4.5 g/dL [facility] ALP [Catalytic activity/Vol] 124 U/L 40 - 150 U/L [facility] ALT [Catalytic activity/Vol] 33 U/L High NINF - 30 U/L [facility] Anion gap [Moles/Vol] 4 mmol/L 3 - 13 mmol/L [facility] AST [Catalytic activity/Vol] 27 U/L NINF - 34 U/L [facility] Bilirubin [Mass/Vol] 0.3 mg/dL NINF - 1.2 mg/dL [facility] Calcium [Mass/Vol] 8.6 mg/dL Low 8.8 - 10. 0 mg/dL [facility] Chloride [Moles/Vol] 101 mmol/L 98 - 10 7 mmol/L [facility] CO2 [Moles/Vol] 34 mmol/L High 23 - 31 mmol/L [facility] Creatinine [Mass/Vol] 0.49 mg/dL Low 0.58 - 1.12 mg/dL [facility] GFR/1.73 sq M.predicted (S/P/Bld) [Vol rate/Area] - PINF [facility] Comment on above: Calculation based on the Chronic Kidney Disease Epidemiology Collaboration (CKD-EPI) equation refit without adjustment for race Glucose [Mass/Vol] 98 mg/dL 82 - 115 mg/dL [facility] Interpretation and review of laboratory results Abnormal [facility] Potassium [Moles/Vol] 4.7 mmol/L 3.5 - 5.1 mmol/L [facility] Comment on above: Plasma potassium martín ues may be up to 0.5 mmol/L lower than serum values. Protein [Mass/Vol] 6.4 g/dL 6.4 - 8.3 g/dL [facility] Sodium [Moles/Vol] 139 mmol/L 136 - 145 mmol/L [facility] Urea nitrogen [Mass/Vol] 17 mg/dL 9 - 23 mg/d L [facility] Consulton 01-13-2025 Consult Normal [facility] Laboratory - Chemistry and C hemistry - challengeOrdered By: Rolando Shelton on 01-13-2025 Base excess Calc (BldV) [Moles/Vol] 6.3 mmol/L High -3.0 - 3.0 mmol/L [facility] CO2 (BldV) [Partial pressure] 80.8 mm[Hg] High [facility] CO2 [Moles/Vol] 38.1 mmol/L High 23.0 - 30.0 mmol/L [facility] HCO3 (Bld) [Moles/Vol] 35.6 mmol/L High 21.0 - 30.0 mmol/L [facility] Oxygen (BldV) [Partial pressure] 35.8 mm[Hg] mm Hg [facility] pH (BldV) 7.262 [pH] Low 7.320 - 7.420 [facility] Laboratory - Hematology and Cell countsOrdered By: Rolando Shelton on 01-13-2025 Hemoglobin (Bld) [Mass/Vol] 11.3 g/dL Low 12.0 - 16.0 g/dl [facility] No Panel InformationOrdered By: Rolando Shelton on 01-13-2025 Amount Of Oxygen 55 [facility] Interpretation and review of laboratory results Abnormal [facility] Source [facility] Assessment of oxygenation is best done with an arterial blood gas determination. Reference ranges for pO2, bicarbonate, and base excess are for mixed venous blood. Specimens drawn from a peripheral vein will often have higher values. [facility] Progress Noteon 01-13-2025 Progress Note Normal [facility] Progress Note Normal [facility] Vital signsOrdered By: Andres Shelton on 01-13-2025 Oxygen saturation in Venous blood 63.4 % [facility] XR Chest Single viewon 01-13 Emphysema, unchanged . Parenchymal fibrotic changes. Left subclavian MediPort, unchanged. Report Dictated on Electronically Signed By: Jaspreet Jeong DO Electronically Signed Date/Time: 01/13/2025 6:33 AM EDT [facility] Patient Name: GONZALO DELUCA : 1955 Exam Date/Time: 01/13/2025 05:24 Procedure: XR CHEST 1 VIEW Ordering Provider: LYNN MASROOR Reason For Exam: acrf; see below EXAM: XR Chest, 1 View CLINICAL INDICATION: acrf; see below TECHNIQUE: Frontal view of the chest. COMPARISON: 01/12/2025. FINDINGS: LUNGS AND PLEURAL SPACES: COPD, unchanged. Coarse bilateral interstitial lung markings. No consolidation. No pneumothorax. HEART: Unremarkable. No cardiomegaly. MEDIASTINUM: Unremarkable. Normal mediastinal contour. BONES/JOINTS: Thoracic degenerative spondylosis. No acute fracture. TUBES, LINES AND DEVICES: Left IJ MediPort catheter tip overlies mid SVC, unchanged. [facility] Jaspreet Jeong DO - 01/13/2025 Patient Name: GONZALO DELUCA : 1955 Exam Date/Time: 01/13/2025 05:24 Procedure: XR CHEST 1 VIEW Ordering Provider: LYNN MASROOR Reason For Exam: acrf; see below EXAM: XR Chest, 1 View CLINICAL INDICATION: acrf; see below TECHNIQUE: Frontal view of the chest. COMPARISON: 01/12/2025. FINDINGS: LUNGS AND PLEURAL SPACES: COPD, unchanged. Coarse bilateral interstitial lung markings. No consolidation. No pneumothorax. HEART: Unremarkable. No cardiomegaly. MEDIASTINUM: Unremarkable. Normal mediastinal contour. BONES/JOINTS: Thoracic degenerative spondylosis. No acute fracture. TUBES, LINES AND DEVICES: Left IJ MediPort catheter tip overlies mid SVC, unchanged. IMPRESSION: Emphysema, unchanged. Parenchymal fibrotic changes. Left subclavian MediPort, unchanged. Report Dictated on Electronically Signed By: Jaspreet Jeong DO Electronically Signed Date/Time: 01/13/2025 6:33 AM EDT [facility] Radiology Study observation (narrative) [facility] Chest Single viewOrdered By: Jaspreet Jeong on 01-13-2025 [facility] [employer] Work Phone: ACETAMINOPHEN LEVELon 2024 Acetaminophen [Mass/Vol] ug/mL Low 10.0-30.0 [facility] Comment on above: Result Comment: KYM Gilmore COMMENTS:Acetaminophen concentrations greater than 150 ug/mL at 4 hours after ingestion and greater than 40 ug/mL at 12 hours after ingestion are often associated with toxicity. Performed By: #### L [id number], [id number], LAB34, [id number] ####Account Services Associate: HANS PAULSON ([phone])[facility] [place] (SBHLAB)[address] [place] [address] Acetaminophen [Mass/Vol]on 1 Acetaminophen concentrations greater than 150 ug/mL at 4 hours after ingestion and greater than 40 ug/mL at 12 hours after ingestion are often associated with toxicity. [facility] BLOOD CULTUREon 01-12-2025 Bacteria identified Cx Nom (Bld) Normal [facility] Comment on above: Performed By: #### L [id number] ####Account Services Associate: AMELIE ELIZABETH ([phone])[facility] (SACLAB)[address] [place] [address] BLOOD GAS, VENOUSon 1025-20 25 AMOUNT OF OXYGEN 60 Normal [facility] Comment on above: Result Comment: KYM Gilmore COMMENTS:Assessment of oxygenation is best done with an arterial blood gas determination. Reference ranges for pO2, bicarbonate, and base excess are for mixed venous blood. Specimens drawn from a peripheral vein will often have higher values. Performed By: #### L AB79 ####Account Services Associate: HANS PAULSON ([phone])[facility] [place] (SBHLAB)[address] Base excess Calc (BldV) [Moles/Vol] 4.0 mmol/L High -3.0-3.0 [facility] Comment on above: Performed By: #### L AB79 ####Account Services Associate: HANS PAULSON ([phone])[facility] (SBHLAB)[address] CO2 [Moles/Vol] 37.1 mmol/L High 23.0-30.0 [facility] Comment on above: Performed By: #### L AB79 ####Account Services Associate: HANS PAULSON ([phone])[facility] (SBHLAB)[address] HCO3 (Bld) [Moles/Vol] 34.4 mmol/L High 21.0-30.0 [facility] Comment on above: Performed By: #### L AB79 ####Account Services Associate: HANS PAULSON ([phone])[facility] (SB[facility])[address] Hemoglobin (Bld) [Mass/Vol] 12.1 g/dL Normal Screen only [facility] Comment on above: Performed By: #### L AB79 ####Account Services Associate: HANS PAULSON ([phone])[facility] (SBHLAB)[address] OXYGEN (MM HG) IN VENOUS BLOOD 30.0 mm Hg Normal [facility] Comment on above: Performed By: #### L AB79 ####Account Services Associate: HANS PAULSON ([phone])[facility] (SBHLAB)[address] OXYGEN SATURATION (%) IN VENOUS BLOOD 50.1 % Normal [facility] Comment on above: Performed By: #### L [id number] ####Account Services Associate: HANS ALCANTARESCOBAR ([phone])[facility] (SBHLAB)[address] PCO2, VICKY 88.2 mm Hg High 35.0-53.0 [facility] Comment on above: Performed By: #### L AB79 ####Account Services Associate: HANS AGUILARCER ([phone])[facility])[address] PH VENOUS 7.209 Low 7.320-7.420 [facility] Comment on above: Performed By: #### L [id number] ####Account Services Associate: HANS ALCANTARESCOBAR ([phone])[facility] ([facility])[address] SOURCE OF OXYGEN Non-Invasive Ventilator Normal [facility] Comment on above: Performed By: #### L [id number] ####Account Services Associate: HANS PAULSON ([phone])[facility] ([facility])[address] [place] [address] AMOUNT OF OXYGEN 60% Normal [facility] Comment on above: Result Comment: KYM Gilmore COMMENTS:Assessment of oxygenation is best done with an arterial blood gas determination. Reference ranges for pO2, bicarbonate, and base excess are for mixed venous blood. Specimens drawn from a peripheral vein will often have higher values. Performed By: #### L [id number] ####Account Services Associate: HANS PAULSON ([phone])[facility] (HLAB)[address] Base excess Calc (BldV) [Moles/Vol] 2.6 mmol/L Normal -3.0-3.0 [facility] Comment on above: Performed By: #### L [id number] ####Account Services Associate: HANS PAULSON ([phone])[facility] (SBHLAB)[address] [place] [address] [place] CO2 [Moles/Vol] 35.9 mmol/L High 23.0-30.0 [facility] Comment on above: Performed By: #### L AB79 ####Account Services Associate: HANS PAULSON ([phone])[facility] [place] (SBHLAB)[address] [place] [address] [place] HCO3 (Bld) [Moles/Vol] 33.2 mmol/L High 21.0-30.0 [facility] Comment on above: Performed By: #### L [id number] ####Account Services Associate: HANS PAULSON ([phone])[facility] [place] (SBHLAB)[address] Hemoglobin (Bld) [Mass/Vol] 12.3 g/dL Normal Screen only [facility] Comment on above: Performed By: #### L [id number] ####Account Services Associate: HANS PAULSON ([phone])[facility] [place] (SBHLAB)[address] OXYGEN (MM HG) IN VENOUS BLOOD 60.9 mm Hg Normal [facility] Comment on above: Performed By: #### L [id number] ####Account Services Associate: HANS PAULSON ([phone])[facility] [place] (SBHLAB)[address] [place] [address] [place] OXYGEN SATURATION (%) IN VENOUS BLOOD 85.8 % Normal [facility] Comment on above: Performed By: #### L [id number] ####Account Services Associate: HANS PAULSON ([phone])[facility] [place] (SBHLAB)[address] [place] [address] [place] PCO2, VICKY 88.4 mm Hg High 35.0-53.0 [facility] Comment on above: Performed By: #### L [id number] ####Account Services Associate: HANS PAULSON ([phone])[facility] [place] (SBHLAB)[address] PH VENOUS 7.193 Low 7.320-7.420 [facility] Comment on above: Performed By: #### L AB79 ####Account Services Associate: HANS PAULSON ([phone])[facility] [place] (SBHLAB)[address] SOURCE OF OXYGEN BiPAP Normal [facility] Comment on above: Performed By: #### L [id number] ####Account Services Associate: HANS PAULSON ([phone])[facility] (SBHLAB)[address] AMOUNT OF OXYGEN 3 Normal [facility] Comment on above: Result Comment: KYM Gilmore COMMENTS:Assessment of oxygenation is best done with an arterial blood gas determination. Reference ranges for pO2, bicarbonate, and base excess are for mixed venous blood. Specimens drawn from a peripheral vein will often have higher values. Performed By: #### L [id number] ####Account Services Associate: HANS PAULSON ([phone])[facility] [place] (SBHLAB)[address] Base excess Calc (BldV) [Moles/Vol] 5.5 mmol/L High -3.0-3.0 [facility] Comment on above: Performed By: #### L [id number] ####Account Services Associate: HANS PAULSON ([phone])[facility] (SBHLAB)[address] [place] [address] [place] CO2 [Moles/Vol] 37.1 mmol/L High 23.0-30.0 [facility] Comment on above: Performed By: #### L [id number] ####Account Services Associate: HANS PAULSON ([phone])[facility] (SBHLAB)[address] HCO3 (Bld) [Moles/Vol] 34.8 mmol/L High 21.0-30.0 [facility] Comment on above: Performed By: #### L [id number] ####Account Services Associate: HANS PAULSON ([phone])[facility] (SBHLAB)[address] Hemoglobin (Bld) [Mass/Vol] 13.8 g/dL Normal Screen only [facility] Comment on above: Performed By: #### L [id number] ####Account Services Associate: HANS PAULSON ([phone])[facility] [place] (SBHLAB)[address] OXYGEN (MM HG) IN VENOUS BLOOD 51.2 mm Hg Normal [facility] Comment on above: Performed By: #### L [id number] ####Account Services Associate: HANS PAULSON ([phone])[facility] [place] (SBHLAB)[address] OXYGEN SATURATION (%) IN VENOUS BLOOD 82.4 % Normal [facility] Comment on above: Performed By: #### L AB79 ####Account Services Associate: HANS PAULSON ([phone])[facility] [place] (SBHLAB)[address] PCO2, VICKY 74.5 mm Hg High 35.0-53.0 [facility] Comment on above: Performed By: #### L [id number] ####Account Services Associate: HANS PAULSON ([phone])[facility] [place] (SBHLAB)[address] PH VENOUS 7.287 Low 7.320-7.420 [facility] Comment on above: Performed By: #### L [id number] ####Account Services Associate: HANS ALCANTARESCOBAR ([phone])[facility] [place] (SBHLAB)[address] SOURCE OF OXYGEN Nasal Cannula (LPM) Normal [facility] Comment on above: Performed By: #### L [id number] ####Account Services Associate: HANS ALCANTARESCOBAR ([phone])[facility] [place] (SBHLAB)[address] CBC W Auto Differential pane l (Bld)Ordered By: Eh Alves on 01-12-2025 Erythrocyte distribution width (RBC) [Ratio] 13.9 % 11.5 - 15.0 % [facility] Hematocrit (Bld) [Volume fraction] 38.5 % 35.0 - 47.0 % [facility] Hemoglobin (Bld) [Mass/Vol] 11.5 g/dL Low 11.7 - 16.0 g/dL [facility] Interpretation and review of laboratory results Abnormal [facility] MCH (RBC) [Entitic mass] 28.8 pg 26. 0 - 34.0 pg [facility] MCHC (RBC) [Mass/Vol] 29.9 % Low 30.5 - 36.0 % [facility] MCV (RBC) [Entitic vol] 96.5 fL 77.0 - 99.0 fL [facility] Platelet mean volume (Bld) [Entitic vol] 9.9 fL 9.0 - 12.7 fL [facility] Platelets (Bld) [#/Vol] 168 10*3/uL 140 - 440 10*3/uL [facility] RBC (Bld) [#/Vol] 3.99 10*6/uL 3.80 - 5.2 0 10*6/uL [facility] WBC (Bld) [#/Vol] 13.7 10*3/uL High 3.6 - 10.7 10*3/uL [facility] CBC WITH AUTO DIFFERENTIALon 01-12-2025 Erythrocyte distribution width (RBC) [Ratio] 13.9 % Normal 11.5-15.0 [facility] Comment on above: Performed By: #### L [id number], [id number] ####Account Services Associate: HASN PAULSON ([phone])[facility] ([facility])[address] [place] [address] Hematocrit (Bld) [Volume fraction] 38.5 % Normal 35.0-47.0 [facility] Comment on above: Performed By: #### L [id number], [id number] ####Account Services Associate: HANS PAULSON ([phone])[facility] ([facility])[address] Hemoglobin (Bld) [Mass/Vol] 11.5 g/dL Low 11.7-16.0 [facility] Comment on above: Performed By: #### L [id number], [id number] ####Account Services Associate: HANS PAULSON ([phone])[facility] [place] (SBHLAB)[address] MCH (RBC) [Entitic mass] 28.8 pg Normal 26.0-34.0 [facility] Comment on above: Performed By: #### L [id number], [id number] ####Account Services Associate: HANS PAULSON ([phone])[facility]ERNorm[facility] BRANCHMESILLA VALLEY HOSPITALRaimundo (SBHLAB)[address] MCHC 29.9 % Low 30.5-36.0 [facility] Comment on above: Performed By: #### L [id number], [id number] ####Account Services Associate: HANS PAULSON ([phone])[facility] [place] (SBHLAB)[address] MCV (RBC) [Entitic vol] 96.5 fL Normal 77.0-99.0 S [facility] Comment on above: Performed By: #### L [id number], [id number] ####Account Services Associate: HANS PAULSON ([phone])[facility] [place] (SBHLAB)[address] Platelet mean volume (Bld) [Entitic vol] 9.9 fL Normal 9.0-12.7 [facility] Comment on above: Performed By: #### L [id number], [id number] ####Account Services Associate: HANS PAULSON ([phone])[facility] (SBHLAB)[address] Platelets (Bld) [#/Vol] 168 10*3/uL Normal 140-440 [facility] Comment on above: Performed By: #### L [id number], [id number] ####Account Services Associate: HANS PAULSON ([phone])[facility] (SBHLAB)[address] RBC (Bld) [#/Vol] 3.99 10*6/uL Normal 3.80-5.20 [facility] Comment on above: Performed By: #### L [id number], [id number] ####Account Services Associate: HANS PAULSON ([phone])[facility] (SBHLAB)[address] WBC (Bld) [#/Vol] 13.7 10*3/uL High 3.6-10.7 [facility] Comment on above: Performed By: #### L [id number], [id number] ####Account Services Associate: HANS PAULSON ([phone])[facility] (SBHLAB)[address] COMPREHENSIVE METABOLIC PANE Cory 01-12-2025 Albumin [Mass/Vol] 3.3 g/dL Normal 3.1-4.5 [facility] Comment on above: Performed By: #### L AB46, LAB17, [id number], [id number] ####Account Services Associate: HANS PAULSON ([phone])[facility] (SBHLAB)[address] ALP [Catalytic activity/Vol] 154 U/L High 40-150 [facility] Comment on above: Performed By: #### L AB46, LAB17, [id number], [id number] ####Account Services Associate: HANS PAULSON ([phone])[facility] (SBHLAB)[address] ALT [Catalytic activity/Vol] 39 U/L High <30 [facility] Comment on above: Performed By: #### L AB46, LAB17, [id number], [id number] ####Account Services Associate: HANS PAULSON ([phone])[facility] (SBHLAB)[address] Anion gap [Moles/Vol] 7 mmol/L Normal 3-13 [facility] Comment on above: Performed By: #### L AB46, LAB17, [id number], [id number] ####Account Services Associate: HANS PAULSON ([phone])[facility] (SB[facility]AB)[address] AST [Catalytic activity/Vol] 33 U/L Normal <34 [facility] Comment on above: Performed By: #### L AB46, LAB17, [id number], [id number] ####Account Services Associate: HANS PAULSON ([phone])[facility] (SB[facility]AB)[address] Bilirubin [Mass/Vol] 0.4 mg/dL Normal <1.2 [facility] Comment on above: Performed By: #### L AB46, LAB17, [id number], [id number] ####Account Services Associate: HANS PAULSON ([phone])[facility] ([facility])[address] Calcium [Mass/Vol] 8.9 mg/dL Normal 8.8-10.0 [facility] Comment on above: Performed By: #### L AB46, LAB17, [id number], [id number] ####Account Services Associate: HANS PAULSON ([phone])[facility] (HLAB)[address] Chloride [Moles/Vol] 101 mmol/L Normal 98-107 [facility] Comment on above: Performed By: #### L AB46, LAB17, [id number], [id number] ####Account Services Associate: HANS PAULSON ([phone])[facility] (SBHLAB)[address] [place] [address] [place] CO2 [Moles/Vol] 33 mmol/L High 23-31 [facility] Comment on above: Performed By: #### L AB46, LAB17, [id number], [id number] ####Account Services Associate: HANS PAULSON ([phone])[facility] (SBHLAB)[address] [place] [address] [place] Creatinine [Mass/Vol] 0.53 mg/dL Low 0.58-1.12 [facility] Comment on above: Performed By: #### L AB46, LAB17, [id number], [id number] ####Account Services Associate: HANS PAULSON ([phone])[facility] (SBHLAB)[address] GLOMERULAR FILTRATION RATE ML/MIN/1.73 SQ M.PREDICTED >90.0 Normal >60.0 [facility] Comment on above: Result Comment: Calc ulation based on the Chronic Kidney Disease Epidemiology Collaboration (CKD-EPI) equation refit without adjustment for race Performed By: #### L AB46, LAB17, [id number], [id number] ####Account Services Associate: HANS PAULSON ([phone])[facility] (SBAB)[address] Glucose [Mass/Vol] 138 mg/dL High 82-115 [facility] Comment on above: Performed By: #### Arsenio AB46, LAB17, [id number], [id number] ####Account Services Associate: HANS PAULSON ([phone])[facility] (SBHLAB)[address] Potassium [Moles/Vol] 4.4 mmol/L Normal 3.5-5.1 [facility] Comment on above: Result Comment: [facility] potassium values may be up to 0.5 mmol/L lower than serum values. Performed By: #### Arsenio AB46, LAB17, [id number], [id number] ####Account Services Associate: HANS PAULSON ([phone])[facility] (SBHLAB)[address] [place] [address] [place] Protein [Mass/Vol] 7.1 g/dL Normal 6.4-8.3 [facility] Comment on above: Performed By: #### L AB46, LAB17, [id number], [id number] ####Account Services Associate: HANS PAULSON ([phone])[facility] (SBHLAB)[address] Sodium [Moles/Vol] 141 mmol/L Normal 136-145 [facility] Comment on above: Performed By: #### L AB46, LAB17, [id number], [id number] ####Account Services Associate: HANS PAULSON ([phone])[facility] JO[facility]LOSDIGN[facility] (SBHLAB)[address] Urea nitrogen [Mass/Vol] 16 mg/dL Normal 9-23 [facility] Comment on above: Performed By: #### L AB46, LAB17, [id number], [id number] ####Account Services Associate: HANS PAULSON ([phone])[facility] (SBHLAB)[address] COVID-19, Flu A/B, and RSV C omboon 01-12-2025 Interpretation and review of laboratory results Normal [facility] Comprehensive metabolic 1998 panelon 01-12-2025 Albumin [Mass/Vol] 3.3 g/dL 3.1 - 4.5 g/dL [facility] ALP [Catalytic activity/Vol] 154 U/L High 40 - 150 U/L [facility] ALT [Catalytic activity/Vol] 39 U/L High NINF - 30 U/L [facility] Anion gap [Moles/Vol] 7 mmol/L 3 - 13 mmol/L [facility] AST [Catalytic activity/Vol] 33 U/L NINF - 34 U/L [facility] Bilirubin [Mass/Vol] 0.4 mg/dL NINF - 1.2 mg/dL [facility] Calcium [Mass/Vol] 8.9 mg/dL 8.8 - 10. 0 mg/dL [facility] Chloride [Moles/Vol] 101 mmol/L 98 - 10 7 mmol/L [facility] CO2 [Moles/Vol] 33 mmol/L High 23 - 31 mmol/L [facility] Creatinine [Mass/Vol] 0.53 mg/dL Low 0.58 - 1.12 mg/dL [facility] GFR/1.73 sq M.predicted (S/P/Bld) [Vol rate/Area] - PINF [facility] Comment on above: Calculation based on the Chronic Kidney Disease Epidemiology Collaboration (CKD-EPI) equation refit without adjustment for race Glucose [Mass/Vol] 138 mg/dL High 82 - 115 mg/dL [facility] Interpretation and review of laboratory results Abnormal [facility] Potassium [Moles/Vol] 4.4 mmol/L 3.5 - 5.1 mmol/L [facility] Comment on above: Plasma potassium martín ues may be up to 0.5 mmol/L lower than serum values. 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 Pt awake and alert and oriented on transport. All belongings with pt. Normal [facility] ED Nursing Note Report to EMPLOYEE COMM[employer]ICATION[employer] INTERN at this time. All questions answered. Pt Daughter Karishma Updated at this time as well. All questions answered. Normal [facility] ED Nursing Note RT called for NIV placement. Normal [facility] ED Provider Noteon ED Provider Note Normal [facility] ETHANOLon 01-12-2025 ETHANOL IN SER/PLAS- RODRIGUEZ <10 Normal <10 [facility] Comment on above: Result Comment: KYM Gilmore COMMENTS:LOOM SETTER FOURDRINIER depression is seen >100 mg/dL.NOTE: This result is for medical treatment only. Analysis performed using non-forensic procedures. Performed By: #### L AB46, LAB17, [id number], [id number] ####Account Services Associate: HANS PAULSON ([phone])[facility] (SBAB)[address] [place] [address] ETHYL GLUCURONIDE SCREEN, UR INEon 01-12-2025 ETHYL GLUCURONIDE, URINE Negative Normal Negative [facility] Comment on above: Result Comment: KYM Gilmore COMMENTS:Ethyl Glucuronide has been screened by Immunoassay at a 500 ng/mL threshold. POSITIVE results are not confirmed by a more specific alternative method unless requested. If confirmation is needed, request confirmation under separate order.NOTE: These results are for medical treatment only. Analysis performed using non-forensic procedures.This test has not been cleared by the [place] Food and Drug Administration (FDA). The FDA has determined that such clearance or approval is not necessary. The performance characteristics have been determined by the clinical laboratories of [facility]. Performed By: #### L [id number] ####Account Services Associate: AMELIE ELIZABETH ([phone])[facility] (SACLAB)[address] [place] [address] Ethanol (Bld) [Mass/Vol]on Ethanol [Mass/Vol] mg/dL NINF - 10 mg/dL [facility] Interpretation and review of laboratory results Normal [facility] LOOM SETTER FOURDRINIER depression is se en >100 mg/dL. NOTE: This result is for medical treatment only. Analysis performed using non-forensic procedures. [facility] HIGH SENSITIVITY TROPONIN, S ERIAL BASELINEon 01-12-2025 TROPONIN HS SERIAL BASELINE 13 ng/L Normal <=14 [facility] Comment on above: Result Comment: In i ndividuals presenting with symptoms > 2h, a baseline troponin <= 5 ng/L suggests acutecardiac injury is unlikely and further serial testing is generally not indicated. Performed By: #### L AB46, LAB17, [id number], [id number] ####Account Services Associate: HANS PAULSON ([phone])[facility] (SBHLAB)[address] [place] [address] HIGH SENSITIVITY TROPONIN, S ERIAL, SECOND TESTon 01-12-2025 2H TROPONIN HS (SERIAL 2ND TROPONIN) 9 ng/L Normal <=14 [facility] Comment on above: Result Comment: 2h t roponin (2nd troponin) samples collected between 1h 40 min and 2h and 20 min of the baseline collection time can be utilized to interpret delta troponins as per [facility] algorithms. Samples collected outside this timeframe need to be interpreted clinically.Rising or falling troponin delta between 2 ??? 15 ng/L as compared to baseline value requires a 3rd serial troponin Performed By: #### L [id number], LAB43, LAB34, [id number] ####Account Services Associate: HANS PAULSON ([phone])[facility] (SBAB)[address] [place] [address] HIGH SENSITIVITY TROPONIN, S ERIAL, THIRD TESTon 01-12-2025 4H TROPONIN HS (SERIAL 3RD TROPONIN) 8 ng/L Normal <=14 [facility] Comment on above: Result Comment: Risi ng or falling troponin delta below 2 ng/L as compared to 2h troponin value suggeststhat acute cardiac injury is unlikely. Performed By: #### L [id number] ####Account Services Associate: HANS PAULSON ([phone])[facility] ([facility])[address] [place] [address] LACTIC ACID WITH REFLEXon Lactate [Moles/Vol] 0.8 mmol/L Normal 0.5-2.2 [facility] Comment on above: Performed By: #### L [id number] ####Account Services Associate: HANS PAULSON ([phone])[facility] [place] [address] LEGIONELLA AND STREPTOCOCCUS URINE ANTIGENon 01-12-2025 LEGIONELLA AND STREPTOCOCCUS URINE ANTIGEN Normal [facility] Comment on above: Performed By: #### L [id number] ####Account Services Associate: AMELIE ELIZABETH ([phone])[facility] ([facility])[address] [place] [address] Laboratory - Chemistry and C hemistry - challengeon 01-12-2025 Procalcitonin [Mass/Vol] 0.21 ng/mL High NICHOLAS F - 0.07 ng/mL [facility] Base excess Calc (BldV) [Moles/Vol] 4 mmol/L High -3.0 - 3.0 mmol/L [facility] CO2 (BldV) [Partial pressure] 88.2 mm[Hg] High [facility] CO2 [Moles/Vol] 37.1 mmol/L High 23.0 - 30.0 mmol/L [facility] HCO3 (Bld) [Moles/Vol] 34.4 mmol/L High 21.0 - 30.0 mmol/L [facility] Oxygen (BldV) [Partial pressure] 30 mm[Hg] mm Hg [facility] pH (BldV) 7.209 [pH] Low 7.320 - 7.420 [facility] Base excess Calc (BldV) [Moles/Vol] 2.6 mmol/L -3.0 - 3.0 mmol/L [facility] CO2 (BldV) [Partial pressure] 88.4 mm[Hg] High [facility] CO2 [Moles/Vol] 35.9 mmol/L High 23.0 - 30.0 mmol/L [facility] HCO3 (Bld) [Moles/Vol] 33.2 mmol/L High 21.0 - 30.0 mmol/L [facility] Oxygen (BldV) [Partial pressure] 60.9 mm[Hg] mm Hg [facility] pH (BldV) 7.193 [pH] Low 7.320 - 7.420 [facility] Lactate [Moles/Vol] 0.8 mmol/L 0.5 - 2. 2 mmol/L [facility] Laboratory - Chemistry and C hemistry - challengeOrdered By: Yeny Jorge on 01-12-2025 Base excess Calc (BldV) [Moles/Vol] 5.5 mmol/L High -3.0 - 3.0 mmol/L [facility] CO2 (BldV) [Partial pressure] 74.5 mm[Hg] High [facility] CO2 [Moles/Vol] 37.1 mmol/L High 23.0 - 30.0 mmol/L [facility] HCO3 (Bld) [Moles/Vol] 34.8 mmol/L High 21.0 - 30.0 mmol/L [facility] Oxygen (BldV) [Partial pressure] 51.2 mm[Hg] mm Hg [facility] pH (BldV) 7.287 [pH] Low 7.320 - 7.420 [facility] Laboratory - Drug toxicology on 01-12-2025 Acetaminophen [Mass/Vol] ug/mL Low 10. 0 - 30.0 ug/mL [facility] Salicylates [Mass/Vol] mg/dL Low 15.0 - 30.0 mg/dL [facility] Laboratory - Hematology and Cell countson 01-12-2025 Hemoglobin (Bld) [Mass/Vol] 12.1 g/dL 12.0 - 16.0 g/dl [facility] Hemoglobin (Bld) [Mass/Vol] 12.3 g/dL 12.0 - 16.0 g/dl [facility] Basophilic stippling LM Ql (Bld) Slight Abnormal (none) [facility] Basophils (Bld) [#/Vol] 0.1 10*3/uL 0.0 - 0.2 10*3/uL [facility] Basophils/100 WBC (Bld) 1 % 0 - 2 % [facility] Eosinophils (Bld) [#/Vol] 0.4 10*3/uL 0.0 - 0.5 10*3/uL [facility] Eosinophils/100 WBC (Bld) 3 % 0 - 6 % [facility] Lymphocytes (Bld) [#/Vol] 0.4 10*3/uL Low 1.0 - 4.3 10*3/uL [facility] Lymphocytes/100 WBC (Bld) 3 % Low 15 - 45 % [facility] Monocytes (Bld) [#/Vol] 0.7 10*3/uL 0.0 - 0.9 10*3/uL [facility] Monocytes/100 WBC (Bld) 5 % 5 - 13 % [facility] Neutrophils (Bld) [#/Vol] 12.1 10*3/uL High 1.8 - 7.5 10*3/uL [facility] Ovalocytes LM Ql (Bld) Slight Abnormal (none) [facility] Poikilocytosis LM Ql (Bld) Moderate Abnormal (none) [facility] Polychromasia LM Ql (Bld) Slight Abnormal (none) [facility] RBC morphology finding Nom (Bld) abnormal [facility] Segmented neutrophils/100 WBC (Bld) 88 % High 38 - 82 % [facility] Stomatocytes LM Ql (Bld) Marked Abnormal (none) [facility] Laboratory - Hematology and Cell countsOrdered By: Yeny Jorge on 01-12-2025 Hemoglobin (Bld) [Mass/Vol] 13.8 g/dL 12.0 - 16.0 g/dl [facility] Laboratory - Microbiology an d Antimicrobial susceptibilityOrdered By: Calvin Brown on 01-12-2025 L. pneumophila 1 Ag IA.rapid Ql (U) Not detected Not Detected [facility] Laboratory - Microbiology an d Antimicrobial susceptibilityon 01-12-2025 FLUAV RNA MILANA+probe Ql (Resp) Not detected Not Detected [facility] FLUBV RNA MILANA+probe Ql (Resp) Not detected Not Detected [facility] RSV RNA MILANA+probe Ql (Resp) Not detected Not Detected [facility] SARS-CoV-2 (COVID-19) RNA MILANA+probe Ql (Resp) Not detected Not Detected [facility] alth SARS-CoV-2 (COVID-19) RNA MILANA+probe Ql (Unsp spec) Methodology: real-time, RT-PCR The SARS-CoV-2, Flu A/B, and RSV Combo assay is intended for in vitro diagnostic use under the FDA Emergency Use Authorization (EUA). This test has not been FDA cleared or approved. In compliance with this authorization, please visit www.fda.gov/media/1424 35/download or www.fda.gov/media/142 36/download to access the applicable information sheets. [facility] MANUAL DIFFERENTIAL (CELLAVI MICHAEL)on 01-12-2025 BAND NEUTROPHILS TOTAL PER COUNTED LEUKOCYTES BY MANUAL COUNT Normal [facility] Comment on above: Performed By: #### L [id number], [id number] ####Account Services Associate: HANS PAULSON ([phone])[facility] ([facility])[address] [place] [address] BASOPHILIC STIPPLING PRESENCE IN BLOOD BY LIGHT MICROSCOPY Slight Abnormal (none) [facility] Comment on above: Performed By: #### L [id number], [id number] ####Account Services Associate: HANS PAULSON ([phone])[facility])[address] [place] [address] BASOPHILS (10*3/UL) IN BLOOD-CELLAVISION 0.1 10*3/uL Normal 0.0-0.2 [facility] Comment on above: Performed By: #### L [id number], [id number] ####Account Services Associate: HANS PAULSON ([phone])[facility])[address] BASOPHILS TOTAL PER COUNTED LEUKOCYTES BY MANUAL COUNT 1 Normal [facility] Comment on above: Performed By: #### L [id number], [id number] ####Account Services Associate: HANS WALDROPIVELISSE ([phone])[facility] [place] ([facility])[address] [place] [address] [place] BASOPHILS/100 LEUKOCYTES IN BLOOD-CELLAVISION 1 % Normal 0-2 [facility] Comment on above: Performed By: #### L [id number], [id number] ####Account Services Associate: HANS WALDROPIVELISSE ([phone])[facility] [place] ([facility])[address] [place] [address] [place] BLASTS TOTAL PER COUNTED LEUKOCYTES BY MANUAL COUNT Normal [facility] Comment on above: Performed By: #### L [id number], [id number] ####Account Services Associate: HANS WALDROPIVELISSE ([phone])[facility] [place] ([facility])[address] [place] [address] [place] EOSINOPHILS (10*3/UL) IN BLOOD-CELLAVISION 0.4 10*3/uL Normal 0.0-0.5 [facility] Comment on above: Performed By: #### L [id number], [id number] ####Account Services Associate: HANS PAULSON ([phone])[facility] [place] ([facility])[address] [place] [address] [place] EOSINOPHILS TOTAL PER COUNTED LEUKOCYTES BY MANUAL COUNT 3 High 0-1 [facility] Comment on above: Performed By: #### L [id number], [id number] ####Account Services Associate: HANS PAULSON ([phone])[facility] [place] ([facility])[address] [place] [address] [place] EOSINOPHILS/100 LEUKOCYTES IN BLOOD-CELLAVISION 3 % Normal 0-6 [facility] Comment on above: Performed By: #### L [id number], [id number] ####Account Services Associate: HANS ALCANTARESCOBAR ([phone])[facility] [place] ([facility])[address] [place] [address] [place] LYMPHOCYTES (10*3/UL) IN BLOOD-CELLAVISION 0.4 10*3/uL Low 1.0-4.3 [facility] Comment on above: Performed By: #### L [id number], [id number] ####Account Services Associate: HANS ALCANTARESCOBAR ([phone])[facility] [place] ([facility])[address] [place] [address] [place] LYMPHOCYTES TOTAL PER COUNTED LEUKOCYTES BY MANUAL COUNT 3 Normal [facility] Comment on above: Performed By: #### L [id number], [id number] ####Account Services Associate: HANS ALCANTARESCOBAR ([phone])[facility] [place] ([facility])[address] [place] [address] [place] LYMPHOCYTES/100 LEUKOCYTES IN BLOOD-CELLAVISION 3 % Low 15-45 [facility] Comment on above: Performed By: #### L [id number], [id number] ####Account Services Associate: HANS ALCANTARESCOBAR ([phone])[facility] [place] ([facility])[address] [place] [address] [place] METAMYELOCYTES TOTAL PER COUNTED LEUKOCYTES BY MANUAL COUNT Normal [facility] Comment on above: Performed By: #### L [id number], [id number] ####Account Services Associate: HANS PAULSON ([phone])[facility] [place] ([facility])[address] [place] [address] [place] MONOCYTES (10*3/UL) IN BLOOD-CELLAVISION 0.7 10*3/uL Normal 0.0-0.9 [facility] Comment on above: Performed By: #### L [id number], [id number] ####Account Services Associate: HANS PAULSON ([phone])[facility] [place] ([facility])[address] [place] [address] [place] MONOCYTES TOTAL PER COUNTED LEUKOCYTES BY MANUAL COUNT 5 Normal [facility] Comment on above: Performed By: #### L [id number], [id number] ####Account Services Associate: HANS PAULSON ([phone])[facility] [place] ([facility])[address] [place] [address] [place] MONOCYTES/100 LEUKOCYTES IN BLOOD-[place] 5 % Normal -13 [facility] Comment on above: Performed By: #### L [id number], [id number] ####Account Services Associate: HANS WALDROPIVELISSE ([phone])[facility] [place] ([facility])[address] MYELOCYTES COUNTED BY MANUAL COUNT Normal [facility] Comment on above: Performed By: #### L [id number], [id number] ####Account Services Associate: HANS WALDROPIVELISSE ([phone])[facility] [place] ([facility])[address] NEUTROPHILS TOTAL PER COUNTED LEUKOCYTES BY MANUAL COUNT 88 Normal [facility] Comment on above: Performed By: #### L [id number], [id number] ####Account Services Associate: HANS WALDROPIVELISSE ([phone])[facility] [place] ([facility])[address] OVALOCYTES PRESENCE IN BLOOD BY LIGHT MICROSCOPY Slight Abnormal (none) [facility] Comment on above: Performed By: #### L [id number], [id number] ####Account Services Associate: HANS PAULSON ([phone])[facility] [place] ([facility])[address] [place] [address] [place] POIKILOCYTOSIS (PRESENCE) IN BLOOD BY LIGHT MICROSCOPY Moderate Abnormal (none) [facility] Comment on above: Performed By: #### L [id number], [id number] ####Account Services Associate: HANS PAULSON ([phone])[facility] [place] ([facility])[address] [place] [address] [place] POLYCHROMASIA IN BLOOD BY LIGHT MICROSCOPY Slight Abnormal (none) [facility] Comment on above: Performed By: #### L [id number], [id number] ####Account Services Associate: HANS PAULSON ([phone])[facility] [place] ([facility])[address] [place] [address] [place] PROMYELOCYTES TOTAL PER COUNTED LEUKOCYTES BY MANUAL COUNT Normal [facility] Comment on above: Performed By: #### L [id number], [id number] ####Account Services Associate: HANS PAULSON ([phone])[facility] [place] ([facility])[address] [place] [address] [place] RBC MORPHOLOGY IN BLOOD abnormal Normal [facility] Comment on above: Performed By: #### L [id number], [id number] ####Account Services Associate: HANS PAULSON ([phone])[facility] [place] ([facility])[address] [place] [address] [place] SEGMENTED NEUTROPHILS (10*3/UL) IN BLOOD-CELLAVISION 12.1 10*3/uL High 1.8-7.5 [facility] Comment on above: Performed By: #### L [id number], [id number] ####Account Services Associate: HANS PAULSON ([phone])[facility] [place] ([facility])[address] SEGMENTED NEUTROPHILS/100 LEUKOCYTES-CE 88 % High 38-82 [facility] Comment on above: Performed By: #### L [id number], [id number] ####Account Services Associate: HANS PAULSON ([phone])[facility] [place] ([facility])[address] [place] [address] [place] STOMATOCYTES IN BLOOD BY LIGHT MICROSCOPY Marked Abnormal (none) [facility] Comment on above: Performed By: #### L [id number], [id number] ####Account Services Associate: HANS PAULSON ([phone])[facility] [place] ([facility])[address] UNCLASSIFIED CELLS TOTAL PER COUNTED LEUKOCYTES BY MANUAL COUNT [facility] Comment on above: Performed By: #### L [id number], [id number] ####Account Services Associate: HANS PAULSON ([phone])[facility] [place] ([facility])[address] [place] [address] [place] VARIANT LYMPHOCYTES TOTAL PER COUNTED LEUKOCYTES BY MANUAL COUNT [facility] Comment on above: Performed By: #### L [id number], [id number] ####Account Services Associate: HANS PAULSON ([phone])[facility] [place] ([facility])[address] [place] [address] [place] MRSA BY PCRon 01-12-2025 MRSA BY PCR Normal [facility] Comment on above: Performed By: #### L [id number] ####Account Services Associate: AMELIE ELIZABETH ([phone])[facility] ([facility])[address] [place] [address] [place] MRSA DNA MILANA+probe Ql (Nose) on 01-12-2025 Interpretation and review of laboratory results Abnormal [facility] mecA gene Not detected Not Detected [facility] Staphylococcus aureus Detected Abnormal Not Detected [facility] Methicillin-sensitiv e Staphylococcus aureus (MSSA) present; No MRSA detected Negative nasal MRSA PCR has a high negative predictive value for MRSA pneumonia. Consider stopping Vancomycin if no other clinical indication. Positive results do not necessarily indicate active infection with MSSA. Contact Antimicrobial Stewardship for further recommendations. Staphylococcus aureus nasal screen by real-time PCR. This test was modified and its performance characteristics determined by [facility]. The U. S. Food and Drug Administration has not approved or cleared this test; however, FDA clearance or approval is not currently required for clinical use. The results are not intended to be used as the sole means for clinical diagnosis or patient management decisions. [facility] NT PRO BNPon 01-12-2025 Natriuretic peptide B (Bld) [Mass/Vol] 181 pg/mL Normal <334 [facility] Comment on above: Result Comment: KYM Gilmore COMMENTS:In patients with suspected acute HF, NT-proBNP age-related cut-points are 450, 900, and 1800 pg/mL for ages <50, 50???75, and >75 years respectively.NT-proBNP concentration <300 pg/mL provides a very high NPV for HF in an acute setting, independent of age.In a non-acute setting, heart failure is unlikely with a NT-proBNP concentration <125 pg/mL while a value >600 pg/mL is likely due to heart failure.Patients with levels in the lovelace zone (between rule-out and rule-in levels) need extra physician attention and ancillary testing.For the unusual patient aged <50 years with severe CKD, a cut point of 1,200 ng/L for NT-proBNP would be indicated.Testing is performed on a new assay on a new instrument and values may not correlate well with previous values. Performed By: #### L [id number], [id number], [id number], [id number] ####Account Services Associate: HANS PAULSON ([phone])[facility] [place] ([facility])[address] Natriuretic peptide B [Mass/ Vol]on 01-12-2025 Natriuretic peptide B (Bld) [Mass/Vol] 181 pg/mL NINF - 334 pg/mL [facility] [employer] In patients with suspected acute HF, NT-proBNP age-related cut-points are 450, 900, and 1800 pg/mL for ages <50, 50 75, and >75 years respectively. NT-proBNP concentration <300 pg/mL provides a very high NPV for HF in an acute setting, independent of age. In a non-acute setting, heart failure is unlikely with a NT-proBNP concentration <125 pg/mL while a value >600 pg/mL is likely due to heart failure. Patients with levels in the lovelace zone (between rule-out and rule-in levels) need extra physician attention and ancillary testing. For the unusual patient aged <50 years with severe CKD, a cut point of 1,200 ng/L for NT-proBNP would be indicated. Testing is performed on a new assay on a new instrument and values may not correlate well with previous values. [email or web address] No Panel InformationOrdered By: Calvin Brown on 01-12-2025 Interpretation and review of laboratory results Normal [email or web address] Streptococcus pneumoniae Ag Not detected Not Detected [email or web address] Methodology: Lateral flow enzyme immunoassay This assay is approved for detection of antigens to Streptococcus pneumoniae and Legionella pneumophila serogroup 1; however, other L. pneumophila serogroups may also be detected. [employer] No Panel InformationOrdered By: Ana Maria Wood on 01-12-2025 ETHYL GLUCURONIDE, URINE Negative Negative [email or web address] Ethyl Glucuronide allen s been screened by Immunoassay at a 500 ng/mL threshold. POSITIVE results are not confirmed by a more specific alternative method unless requested. If confirmation is needed, request confirmation under separate order. NOTE: These results are for medical treatment only. Analysis performed using non-forensic procedures. This test has not been cleared by the US Food and Drug Administration (FDA). The FDA has determined that such clearance or approval is not necessary. The performance characteristics have been determined by the clinical laboratories of [facility]. [facility] No Panel Informationon 01-12 Extra Tube Hold for add-ons. [facility] ealt Comment on above: Auto resulted. [facility] 4h Troponin HS (Serial 3rd Troponin) 8 ng/L NINF - 14 ng/L [facility] Comment on above: Rising or falling tr oponin delta below 2 ng/L as compared to 2h troponin value suggests that acute cardiac injury is unlikely. Interpretation and review of laboratory results Normal [facility] Interpretation and review of laboratory results Abnormal [facility] Source Of Oxygen Non-Invasive Ventilator [facility] Assessment of oxygenation is best done with an arterial blood gas determination. Reference ranges for pO2, bicarbonate, and base excess are for mixed venous blood. Specimens drawn from a peripheral vein will often have higher values. [facility] Interpretation and review of laboratory results Abnormal [facility] 2h Troponin HS (Serial 2nd Troponin) 9 ng/L NINF - 14 ng/L [facility] Comment on above: 2h troponin (2nd tro ponin) samples collected between 1h 40 min and 2h and 20 min of the baseline collection time can be utilized to interpret delta troponins as per [facility] algorithms. Samples collected outside this timeframe need to be interpreted clinically. Rising or falling troponin delta between 2 15 ng/L as compared to baseline value requires a 3rd serial troponin Interpretation and review of laboratory results Normal [facility] Amount Of Oxygen 60% [facility] alth Interpretation and review of laboratory results Abnormal [facility] Source Of Oxygen BiPAP [facility] alth Assessment of oxygenation is best done with an arterial blood gas determination. Reference ranges for pO2, bicarbonate, and base excess are for mixed venous blood. Specimens drawn from a peripheral vein will often have higher values. [facility] Atypical Lymphocytes Manual [facility] Bands Manual [facility] Basophils Manual 1 [facility] alth Blasts Manual [facility]alt h Eosinophils Manual 3 High 0 - 1 [facility] Interpretation and review of laboratory results Abnormal [facility] Lymphocytes Manual 3 [facility] Metamyelocytes Manual [facility] Monocytes Manual 5 [facility] alth Myelocytes Manual [facility] ealth Neutrophils Manual 88 [facility] Promyelocytes Manual [facility] Unclassified Cells, Manual [facility] Interpretation and review of laboratory results Normal [facility] Troponin HS Serial Baseline 13 ng/L NINF - 14 ng/L [facility] Comment on above: In individuals prese nting with symptoms > 2h, a baseline troponin <= 5 ng/L suggests acute cardiac injury is unlikely and further serial testing is generally not indicated. [facility] Interpretation and review of laboratory results Normal [facility] P [place] 45 degrees [facility] [place] Interval 155 ms [facility] QRS [place] -38 degrees [facility] QRSD Interval 100 ms 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 Reference ranges for pO2, bicarbonate, and base excess are for mixed venous blood. Specimens drawn from a peripheral vein will often have higher values. [facility] PROCALCITONIN TESTon 025 PROCALCITONIN 0.21 ng/mL High <0.07 [facility] Comment on above: Result Comment: KYM R COMMENTS:PCT <0.50 = Low risk of severe sepsis and/or septic shock.PCT >2.00 = High risk of severe sepsis and/or septic shock. Performed By: #### L [id number], [id number], [id number], [id number] ####Account Services Associate: HANS PAULSON ([phone])[facility] [place] [facility] [place] [address] Procalcitonin [Mass/Vol]on Interpretation and review of laboratory results Abnormal [facility] PCT <0.50 = Low risk of severe sepsis and/or septic shock. PCT >2.00 = High risk of severe sepsis and/or septic shock. [facility] RESPIRATORY PATHOGENS PANEL BY PCRon 01-12-2025 RESPIRATORY PATHOGENS PANEL BY PCR Normal [facility] Comment on above: Performed By: #### L [id number] ####Account Services Associate: AMELIE ELIZABETH ([phone])[facility] ([facility])[address] [place] [address] Respiratory pathogens DNA an d RNA panel MILANA+non-probe (Nph)on 01-12-2025 Adenovirus Not detected Not Detected [facility] B. pertussis toxin promoter region MILANA+non-probe Ql (Nph) Not detected Not Detected [facility] Bordetella parapertussis Not detected Not Detec tommy [facility] C. pneumoniae DNA MILANA+non-probe Ql (Lower resp) Not detected Not Detected [facility] Coronavirus 229E Not detected Not Detected [facility] Coronavirus HKU1 Not detected Not Detected [facility] Coronavirus NL63 Not detected Not Detected [facility] Coronavirus OC43 Not detected Not Detected [facility] FLUAV RNA MILANA+non-probe Ql (Nph) Not detected Not Detected [facility] FLUBV RNA MILANA+non-probe Ql (Nph) Not detected Not Detected [facility] Human Metapneumovirus Not detected Not Detected [facility] Human Rhinovirus/Enterovirus Not detected Not Detected [facility] Interpretation and review of laboratory results Normal [facility] Mycoplasma pneumoniae Not detected Not Detected [facility] Parainfluenza 1 Not detected Not Detected [facility] Parainfluenza 2 Not detected Not Detected [facility] Parainfluenza 3 Not detected Not Detected [facility] Parainfluenza 4 Not detected Not Detected [facility] Respiratory Syncytial Virus Not detected Not Detected [facility] SARS-CoV-2 (COVID-19) RNA MILANA+non-probe Ql (Nph) Not detected Not Detected [facility] Methodology: Multipl ex PCR [facility] SALICYLATEon 01-12-2025 SALICYLATES <5.0 Low 15.0-30.0 [facility] Comment on above: Performed By: #### L [id number], LAB43, LAB34, [id number] ####Account Services Associate: HANS WALDROPIVELISSE ([phone])[facility] ([facility])[address] [place] [address] SARS-COV-2, FLU A/B, AND RSV COMBOon 01-12-2025 SARS-CoV-2 (COVID-19) RNA MILANA+probe Ql (Unsp spec) Normal [facility] Comment on above: Performed By: #### L [id number] ####Account Services Associate: HANS ALCANTARESCOBAR ([phone])[facility] ([facility])[address] Vital signson 01-12-2025 Oxygen saturation in Venous blood 50.1 % [facility] Oxygen saturation in Venous blood 85.8 % [facility] Heart rate 110 /min bpm [facility] Vital signsOrdered By: Carla Jorge on 01-12-2025 Oxygen saturation in Venous blood 82.4 % [facility] XR Chest Single viewon 01-12 No acute cardiopulmonary abnormality is identified. Report Dictated on Electronically Signed By: Melisa Vallejo MD Electronically Signed Date/Time: 01/12/2025 10:01 AM [facility] Patient Name: GONZALO DELUCA : 1955 [facility] [place]#: [id number] Exam Date/Time: 01/12/2025 09:50 Procedure: XR CHEST 1 VIEW Ordering Provider: SOLIZ AMY Reason For Exam: DYSPNEA EXAM: XR Chest, 1 View CLINICAL INDICATION: DYSPNEA TECHNIQUE: Frontal view of the chest. COMPARISON: Chest radiograph from 08/08/2024 FINDINGS: LUNGS AND PLEURAL SPACES: Chronic reticular pulmonary opacities, compatible with emphysematous changes and interstitial scarring. Bronchiectasis. No new confluent consolidation. No pneumothorax. HEART: Unremarkable. No cardiomegaly. MEDIASTINUM: Unremarkable. Normal mediastinal contour. BONES/JOINTS: Chronic fracture deformity of the right humeral neck. Degenerative change of the spine. TUBES, LINES AND DEVICES: Left chest wall abner catheter tip projects over the upper SVC. [facility] Melisa Vallejo M D - 01/12/2025 Patient Name: GONZALO DELUCA : 1955 [facility] [place]#: [id number] Exam Date/Time: 01/12/2025 09:50 Procedure: XR CHEST 1 VIEW Ordering Provider: SOLIZ AMY Reason For Exam: DYSPNEA EXAM: XR Chest, 1 View CLINICAL INDICATION: DYSPNEA TECHNIQUE: Frontal view of the chest. COMPARISON: Chest radiograph from 08/08/2024 FINDINGS: LUNGS AND PLEURAL SPACES: Chronic reticular pulmonary opacities, compatible with emphysematous changes and interstitial scarring. Bronchiectasis. No new confluent consolidation. No pneumothorax. HEART: Unremarkable. No cardiomegaly. MEDIASTINUM: Unremarkable. Normal mediastinal contour. BONES/JOINTS: Chronic fracture deformity of the right humeral neck. Degenerative change of the spine. TUBES, LINES AND DEVICES: Left chest wall abner catheter tip projects over the upper SVC. IMPRESSION: No acute cardiopulmonary abnormality is identified. Report Dictated on Electronically Signed By: Melisa Vallejo MD Electronically Signed Date/Time: 01/12/2025 10:01 AM EDT [facility] Radiology Study observation (narrative) [facility] XR Chest Single viewOrdered By: Melisa Vallejo on 01-12-2025 [facility] Work Phone: 36on 12-28-2024 36 Normal [facility] Progress Noteon 12-28-2024 Progress Note Normal [facility] 36on 12-18-2024 36 We have been unable to reach your patient to schedule their testing. Test Name: Complete PFT pre and post bronchodilator with FENO Patient canceled 10/24/24 and 12/04/24 Normal [facility] Anion gap in Serum or Plasma Ordered By: Jameson Corral on 12-12-2024 Anion gap [Moles/Vol] 9 mmol/L - [facility] BUN/creatinine ratioOrdered By: Jameson Corral on 12-12-2024 Urea nitrogen/Creatinine [Mass ratio] 22.1 mg/mg High -20 [facility] Basic Metabolic Profile (BMP )on 12-12-2024 BUN/CRE 22.1 RATIO High 10-20 [facility] Comment on above: Order Comment: 311-1 Performed By: #### L 500.2500, L100.0500 #### [facility] [address] [place], [address] Calcium [Mass/Vol] 8.6 mg/dL Normal 7.6-11.0 [facility] Comment on above: Order Comment: 311-1 Performed By: #### L 500.2500, L100.0500 #### [facility] [address] [place], [address] Chloride [Moles/Vol] 98 mmol/L Normal 98-108 [facility] Comment on above: Order Comment: 311-1 Performed By: #### L 500.2500, L100.0500 #### [facility] [address] [place], [address] CO2 [Moles/Vol] 30.3 mmol/L Normal 21.0-32.0 [facility] Comment on above: Order Comment: 311-1 Performed By: #### L 500.2500, L100.0500 #### [facility] [address] [place], [address] Creatinine [Mass/Vol] 0.60 mg/dL Low 0.70-1.20 [facility] Comment on above: Order Comment: 311-1 Performed By: #### L 500.2500, L100.0500 #### [facility] [address] [place], [address] GAP 9 Normal 5-15 [facility] Comment on above: Order Comment: 311-1 Performed By: #### L 500.2500, L100.0500 #### [facility] [address] [place], [address] GFR/1.73 sq M.predicted among non-blacks MDRD (S/P/Bld) [Vol rate/Area] 98 mL/min/{1.73_m2} Normal >60 [facility] Comment on above: Order Comment: 311-1 Result Comment: mL/m in/1.73m2 CKD-EPI Creatinine Equation (2020) Performed By: #### L 500.2500, L100.0500 #### [facility] [address] [place], [address] Glucose [Mass/Vol] 99 mg/dL Normal 70-99 [facility] Comment on above: Order Comment: 311-1 Performed By: #### L 500.2500, L100.0500 #### [facility] [address] [place], [address] Potassium [Moles/Vol] 4.3 mmol/L Normal 3.3-5.1 [facility] Comment on above: Order Comment: 311-1 Performed By: #### L 500.2500, L100.0500 #### [facility] [address] [place], [address] Sodium [Moles/Vol] 137 mmol/L Normal 133-145 [facility] Comment on above: Order Comment: 311-1 Performed By: #### L 500.2500, L100.0500 #### [facility] [address] [place], [address] Urea nitrogen [Mass/Vol] 13 mg/dL Normal 4-19 [facility] Comment on above: Order Comment: 311-1 Performed By: #### L 500.2500, L100.0500 #### [facility] [address] [place], [address] CBC-Complete Blood Cnt No Di ffon 12-12-2024 Erythrocyte distribution width (RBC) [Ratio] 13.3 % Normal 11.6-14.6 [facility] Comment on above: Order Comment: 311-1 Performed By: #### L 500.2500, L100.0500 #### [facility] [address] [place], [address] Hematocrit (Bld) [Volume fraction] 38.6 % Normal 37-47 [facility] Comment on above: Order Comment: 311-1 Performed By: #### L 500.2500, L100.0500 #### [facility] [address] [place], [address] Hemoglobin (Bld) [Mass/Vol] 11.8 g/dL Low 12.0-15.0 [facility] Comment on above: Order Comment: 311-1 Performed By: #### L 500.2500, L100.0500 #### [facility] [address] [place], [address] MCH (RBC) [Entitic mass] 29.3 pg Normal 27.0-32.0 [facility] Comment on above: Order Comment: 311-1 Performed By: #### L 500.2500, L100.0500 #### [facility] [address] [place], [address] MCHC (RBC) [Mass/Vol] 30.6 g/dL Low 32-36 [facility] Comment on above: Order Comment: 311-1 Performed By: #### L 500.2500, L100.0500 #### [facility] [address] [place], [address] MCV (RBC) [Entitic vol] 95.8 fL Normal 81-99 [facility] Comment on above: Order Comment: 311-1 Performed By: #### L 500.2500, L100.0500 #### [facility] [address] [place], [address] Platelet mean volume (Bld) [Entitic vol] 10.4 fL Normal 6.2-12.0 [facility] Comment on above: Order Comment: 311-1 Performed By: #### L 500.2500, L100.0500 #### [facility] [address] [place], [address] Platelets (Bld) [#/Vol] 189 10*3/uL Normal 150-450 [facility] Comment on above: Order Comment: 311-1 Performed By: #### L 500.2500, L100.0500 #### [facility] [address] [place], [address] RBC (Bld) [#/Vol] 4.03 10*6/uL Low 4.2-5.4 [facility] Comment on above: Order Comment: 311-1 Performed By: #### L 500.2500, L100.0500 #### [facility] [address] [place], [address] RDW SD 47.2 fl High 35.1-43.9 [facility] Comment on above: Order Comment: 311-1 Performed By: #### L 500.2500, L100.0500 #### [facility] [address] [place], [address] WBC (Bld) [#/Vol] 7.9 10*3/uL Normal 4.4-11.0 [facility] Comment on above: Order Comment: 311-1 Performed By: #### L 500.2500, L100.0500 #### [facility] [address] [place], [address] Carbon dioxide, total [Moles /volume] in Central venous bloodOrdered By: Jameson Corral on 12-12-2024 CO2 [Moles/Vol] 30.3 mmol/L 21.0-32.0 [facility] Chloride assayOrdered By: Zack Jeong on 12-12-2024 Chloride [Moles/Vol] 98 mmol/L 98-108 [facility] Erythrocyte distribution wid th ratioOrdered By: Jameson Corral on 12-12-2024 Erythrocyte distribution width (RBC) [Ratio] 13.3 % 11.6-14.6 [facility] Erythrocyte distribution wid th standard deviationOrdered By: Jameson Corral on 12-12-2024 Erythrocyte distribution width (RBC) [Ratio] 47.2 fl High 35.1-43.9 [facility] Glomerular filtration rate ( GFR) estimation/1.73 sq m using serum, plasma, or whole bOrdered By: Jameson Corral on 12-12-2024 GFR/1.73 sq M.predicted among non-blacks MDRD (S/P/Bld) [Vol rate/Area] 98 mL/min/{1.73_m2} >60 [facility] Comment on above: mL/min/1.73m2 CKD-EP I Creatinine Equation (2020) Hematocrit Auto (Bld) [Volum e fraction]Ordered By: Jameson Corral on 12-12-2024 Hematocrit (Bld) [Volume fraction] 38.6 % 37-47 [facility] Hemoglobin measurementOrdere d By: Jameson Corral on 12-12-2024 Hemoglobin (Bld) [Mass/Vol] 11.8 g/dL Low 12.0-15.0 [facility] MCV (mean corpuscular volume ) determinationOrdered By: Jameson Corral on 12-12-2024 MCV (RBC) [Entitic vol] 95.8 fL 81-99 [facility] Mean corpuscular hemoglobin (MCH) determinationOrdered By: Jameson Corral on 12-12-2024 MCH (RBC) [Entitic mass] 29.3 pg 27.0-32.0 [facility] Mean corpuscular hemoglobin concentration (MCHC) determinationOrdered By: Jameson Corral on 12-12-2024 MCHC (RBC) [Mass/Vol] 30.6 g/dL Low 32-36 [facility] Mean platelet volume determi nationOrdered By: Jameson Corral on 12-12-2024 Platelet mean volume (Bld) [Entitic vol] 10.4 fL 6.2-12.0 [facility] Platelet countOrdered By: Zack Jeong on 12-12-2024 Platelets (Bld) [#/Vol] 189 10*3/uL 150-450 [facility] Potassium measurement (mass/ volume)Ordered By: Jameson Corral on 12-12-2024 Potassium (Unsp spec) [Mass/Vol] 4.3 mmol/L 3.3-5.1 [facility] RBC Auto (Bld) [#/Vol]Ordere d By: Jameson Corral on 12-12-2024 RBC (Bld) [#/Vol] 4.03 10*6/uL Low 4.2-5.4 [facility] Serum creatinine measurement (mass/volume)Ordered By: Jameson Corral on 12-12-2024 Creatinine [Mass/Vol] 0.60 mg/dL Low 0.70-1.20 [facility] Serum glucose measurement (m ass/volume)Ordered By: Jameson Corral on 12-12-2024 Glucose [Mass/Vol] 99 mg/dL 70-99 [facility] Serum or plasma calcium nessa urement (mass/volume)Ordered By: Jameson Corral on 12-12-2024 Calcium [Mass/Vol] 8.6 mg/dL 7.6-11.0 [facility] Serum or plasma urea nitroge n measurement (mass/volume)Ordered By: Jameson Corral on 12-12-2024 Urea nitrogen [Mass/Vol] 13 mg/dL 4-19 [facility] Sodium levelOrdered By: Fabian Corral on 12-12-2024 Sodium [Moles/Vol] 137 mmol/L 133-145 [facility] White blood cell (WBC) count Ordered By: Jameson Corral on 12-12-2024 WBC (Bld) [#/Vol] 7.9 10*3/uL 4.4-11.0 [facility] CT CHEST WO IV CONTRASTon CT CHEST WO IV CONTRAST Normal [facility] Anion gap in Serum or Plasma Ordered By: Jameson Corral on 10-01-2024 Anion gap [Moles/Vol] 6 mmol/L 5-15 [facility] BUN/creatinine ratioOrdered By: Jameson Corral on 10-01-2024 Urea nitrogen/Creatinine [Mass ratio] 33.1 mg/mg High 01-07 [facility] Basic Metabolic Profile (BMP )on 10-01-2024 BUN/CRE 33.1 RATIO High 01-07 [facility] Comment on above: Order Comment: 311.1 Performed By: #### L 400.0001, M100.2200 #### [facility] [address] [place], [address] Calcium [Mass/Vol] 9.3 mg/dL Normal 7.6-11.0 [facility] Comment on above: Order Comment: 311.1 Performed By: #### L 400.0001, .2199 #### [facility] [address] [place], [address] Chloride [Moles/Vol] 101 mmol/L Normal 98-108 [facility] Comment on above: Order Comment: 311.1 Performed By: #### L 400.0001, #### [facility] [address] [place], [address] CO2 [Moles/Vol] 34.9 mmol/L High 21.0-32.0 [facility] Comment on above: Order Comment: 311.1 Performed By: #### L 400.0001, #### [facility] [address] [place], [address] Creatinine [Mass/Vol] 0.54 mg/dL Low 0.70-1.20 [facility] Comment on above: Order Comment: 311.1 Performed By: #### L 400.0001, #### [facility] [address] [place], [address] GAP 6 Normal 5-15 [facility] Comment on above: Order Comment: 311.1 Performed By: #### L 400.0001, #### [facility] [address] [place], [address] GFR/1.73 sq M.predicted among non-blacks MDRD (S/P/Bld) [Vol rate/Area] 101 mL/min/{1.73_m2} Normal >60 [facility] Comment on above: Order Comment: 311.1 Result Comment: mL/m in/1.73m2 CKD-EPI Creatinine Equation (2020) Performed By: #### L 400.0001, .2199 #### [facility] [address] [place], [address] Glucose [Mass/Vol] 80 mg/dL Normal 70-99 [facility] Comment on above: Order Comment: 311.1 Performed By: #### L 400.0001, .2199 #### [facility] [address] [place], [address] Potassium [Moles/Vol] 4.6 mmol/L Normal 3.3-5.1 [facility] Comment on above: Order Comment: 311.1 Performed By: #### L 400.0001, .2199 #### [facility] [address] [place], [address] Sodium [Moles/Vol] 142 mmol/L Normal 133-145 [facility] Comment on above: Order Comment: 311.1 Performed By: #### L 400.0001, #### [facility] [address] [place], [address] Urea nitrogen [Mass/Vol] 18 mg/dL Normal 4-19 [facility] Comment on above: Order Comment: 311.1 Performed By: #### L 400.0001, #### [facility] [address] [place], [address] CBC-Complete Blood Cnt No Di ffon 10-01-2024 Erythrocyte distribution width (RBC) [Ratio] 13.2 % Normal 11.6-14.6 [facility] Comment on above: Order Comment: 311.1 Performed By: #### L 400.0001, .0 #### [facility] [address] [place], [address] Hematocrit (Bld) [Volume fraction] 37.6 % Normal 37-47 [facility] Comment on above: Order Comment: 311.1 Performed By: #### L 400.0001, #### [facility] [address] [place], [address] Hemoglobin (Bld) [Mass/Vol] 11.4 g/dL Low 12.0-15.0 [facility] Comment on above: Order Comment: 311.1 Performed By: #### L 400.0001, #### [facility] [address] [place], [address] MCH (RBC) [Entitic mass] 30.2 pg Normal 27.0-32.0 [facility] Comment on above: Order Comment: 311.1 Performed By: #### L 400.0001, #### [facility] [address] [place], [address] MCHC (RBC) [Mass/Vol] 30.3 g/dL Low 32-36 [facility] Comment on above: Order Comment: 311.1 Performed By: #### L 400.0001, #### [facility] [address] [place], [address] MCV (RBC) [Entitic vol] 99.7 fL High 81-99 [facility] Comment on above: Order Comment: 311.1 Performed By: #### L 400.0001, #### [facility] [address] [place], [address] Platelet mean volume (Bld) [Entitic vol] 9.8 fL Normal 6.2-12.0 [facility] Comment on above: Order Comment: 311.1 Performed By: #### L 400.0001, #### [facility] [address] [place], [address] Platelets (Bld) [#/Vol] 248 10*3/uL Normal 150-450 [facility] Comment on above: Order Comment: 311.1 Performed By: #### L 400.0001, M100.0 #### [facility] [address] [place], [address] RBC (Bld) [#/Vol] 3.77 10*6/uL Low 4.2-5.4 [facility] Comment on above: Order Comment: 311.1 Performed By: #### L 400.0001, M100.0 #### [facility] [address] [place], [address] RDW SD 48.3 fl High 35.1-43.9 [facility] Comment on above: Order Comment: 311.1 Performed By: #### L 400.0001, M1.0 #### [facility] [address] [place], [address] WBC (Bld) [#/Vol] 6.3 10*3/uL Normal 4.4-11.0 [facility] Comment on above: Order Comment: 311.1 Performed By: #### L 400.0001, M1.0 #### [facility] [address] [place], [address] Carbon dioxide, total [Moles /volume] in Central venous bloodOrdered By: Jameson Corral on 10-01-2024 CO2 [Moles/Vol] 34.9 mmol/L High 21.0-32.0 [facility] Chloride assayOrdered By: Zack Jeong on 10-01-2024 Chloride [Moles/Vol] 101 mmol/L 98-108 [facility] Erythrocyte distribution wid th ratioOrdered By: Jameson Corral on 10-01-2024 Erythrocyte distribution width (RBC) [Ratio] 13.2 % 11.6-14.6 [facility] Erythrocyte distribution wid th standard deviationOrdered By: Jameson Corral on 10-01-2024 Erythrocyte distribution width (RBC) [Ratio] 48.3 fl High 35.1-43.9 [facility] Glomerular filtration rate ( GFR) estimation/1.73 sq m using serum, plasma, or whole bOrdered By: Jameson Corral on 10-01-2024 GFR/1.73 sq M.predicted among non-blacks MDRD (S/P/Bld) [Vol rate/Area] 101 mL/min/{1.73_m2} >60 [facility] Comment on above: mL/min/1.73m2 CKD-EP I Creatinine Equation (2020) Hematocrit Auto (Bld) [Volum e fraction]Ordered By: Jameson Corral on 10-01-2024 Hematocrit (Bld) [Volume fraction] 37.6 % 37-47 [facility] Hemoglobin measurementOrdere d By: Jameson Corral on 10-01-2024 Hemoglobin (Bld) [Mass/Vol] 11.4 g/dL Low 12.0-15.0 [facility] MCV (mean corpuscular volume ) determinationOrdered By: Jameson Corral on 10-01-2024 MCV (RBC) [Entitic vol] 99.7 fL High 81-99 [facility] Mean corpuscular hemoglobin (MCH) determinationOrdered By: Jameson Corral on 10-01-2024 MCH (RBC) [Entitic mass] 30.2 pg 27.0-32.0 [facility] Mean corpuscular hemoglobin concentration (MCHC) determinationOrdered By: Jameson Corral on 10-01-2024 MCHC (RBC) [Mass/Vol] 30.3 g/dL Low 32-36 [facility] Mean platelet volume determi nationOrdered By: Jameson Corral on 10-01-2024 Platelet mean volume (Bld) [Entitic vol] 9.8 fL 6.2-12.0 [facility] Platelet countOrdered By: Zack Jeong on 10-01-2024 Platelets (Bld) [#/Vol] 248 10*3/uL 150-450 [facility] Potassium measurement (mass/ volume)Ordered By: Jameson Corral on 10-01-2024 Potassium (Unsp spec) [Mass/Vol] 4.6 mmol/L 3.3-5.1 [facility] RBC Auto (Bld) [#/Vol]Ordere d By: Jameson Corral on 10-01-2024 RBC (Bld) [#/Vol] 3.77 10*6/uL Low 4.2-5.4 [facility] Serum creatinine measurement (mass/volume)Ordered By: Jameson Corral on 10-01-2024 Creatinine [Mass/Vol] 0.54 mg/dL Low 0.70-1.20 [facility] Serum glucose measurement (m ass/volume)Ordered By: Jameson Corral on 10-01-2024 Glucose [Mass/Vol] 80 mg/dL 70-99 [facility] Serum or plasma calcium nessa urement (mass/volume)Ordered By: Jameson Corral on 10-01-2024 Calcium [Mass/Vol] 9.3 mg/dL 7.6-11.0 [facility] Serum or plasma urea nitroge n measurement (mass/volume)Ordered By: Jameson Corral on 10-01-2024 Urea nitrogen [Mass/Vol] 18 mg/dL 4-19 [facility] Sodium levelOrdered By: Fabian Corral on 10-01-2024 Sodium [Moles/Vol] 142 mmol/L 133-145 [facility] White blood cell (WBC) count Ordered By: Jameson Corral on 10-01-2024 WBC (Bld) [#/Vol] 6.3 10*3/uL 4.4-11.0 [facility] Urine Cultureon 09-20-2024 [facility] UNKNOWN METHOD OF COLLECTION Mixed Gram Pos Gram Neg Org [place] Count 11,000-25,000 MIXC Mixed contaminants. Submit a new specimen if indicated. Normal [facility] Comment on above: Performed By: #### L 400.0001, #### [facility] [address] [place], [place], [address] Urinalysis, Completeon 09-18 CA OX CRYSTAL 1+ /hpf Normal [facility] Comment on above: Order Comment: UNKNO WN METHOD OF COLLECTION CLEAN CATCH Performed By: #### L 400.0001, M1 #### [facility] [address] [place], [address] BACTERIA 0 SEEN Normal None Seen [facility] Comment on above: Order Comment: UNKNO WN METHOD OF COLLECTION CLEAN CATCH Performed By: #### L 400.0001, M100.2200 #### [facility] [address] [place], [address] EPI,SQUAMOUS 0 SEEN Normal 5-10 [facility] Comment on above: Order Comment: UNKNO WN METHOD OF COLLECTION CLEAN CATCH Performed By: #### L 400.0001, M100.2200 #### [facility] [address] [place], [address] Mucus Ql (Urine sed) 0 SEEN Normal [facility] Comment on above: Order Comment: UNKNO WN METHOD OF COLLECTION CLEAN CATCH Performed By: #### L 400.0001, M100.2200 #### [facility] [address] [place], [address] RBC 0 SEEN Normal 0-5 [facility] Comment on above: Order Comment: UNKNO WN METHOD OF COLLECTION CLEAN CATCH Performed By: #### L 400.0001, M100.2200 #### [facility] [address] [place], [address] WBC 0 SEEN Normal 0-5 [facility] Comment on above: Order Comment: UNKNO WN METHOD OF COLLECTION CLEAN CATCH Performed By: #### L 400.0001, M100.2200 #### [facility] [address] [place], [address] Anion gap in Serum or Plasma Ordered By: Jameson Corral on 09-17-2024 Anion gap [Moles/Vol] 7 mmol/L 5-15 [facility] BUN/creatinine ratioOrdered By: Jameson Corral on 09-17-2024 Urea nitrogen/Creatinine [Mass ratio] 26.7 mg/mg High - [facility] Basic Metabolic Profile (BMP )on 09-17-2024 BUN/CRE 26.7 RATIO High 01-07 [facility] Comment on above: Order Comment: 311-2 Performed By: #### L 100.0500, L500.2500 #### [facility] [address] [place], [address] Calcium [Mass/Vol] 8.9 mg/dL Normal 7.6-11.0 [facility] Comment on above: Order Comment: 311-2 Performed By: #### L 100.0500, L500.2500 #### [facility] [address] [place], [address] Chloride [Moles/Vol] 103 mmol/L Normal 98-108 [facility] Comment on above: Order Comment: 311-2 Performed By: #### L 100.0500, L500.2500 #### [facility] [address] [place], [address] CO2 [Moles/Vol] 32.9 mmol/L High 21.0-32.0 [facility] Comment on above: Order Comment: 311-2 Performed By: #### L 100.0500, L500.2500 #### [facility] [address] [place], [address] Creatinine [Mass/Vol] 0.56 mg/dL Low 0.70-1.20 [facility] Comment on above: Order Comment: 311-2 Performed By: #### L 100.0500, L500.2500 #### [facility] [address] [place], [address] GAP 7 Normal 5-15 [facility] Comment on above: Order Comment: 311-2 Performed By: #### L 100.0500, L500.2500 #### [facility] [address] [place], [address] GFR/1.73 sq M.predicted among non-blacks MDRD (S/P/Bld) [Vol rate/Area] 100 mL/min/{1.73_m2} Normal >60 [facility] Comment on above: Order Comment: 311-2 Result Comment: mL/m in/1.73m2 CKD-EPI Creatinine Equation (2020) Performed By: #### L 100.0500, L500.2500 #### [facility] [address] [place], [address] Glucose [Mass/Vol] 80 mg/dL Normal 70-99 [facility] Comment on above: Order Comment: 311-2 Performed By: #### L 100.0500, L500.2500 #### [facility] [address] [place], [address] Potassium [Moles/Vol] 4.1 mmol/L Normal 3.3-5.1 [facility] Comment on above: Order Comment: 311-2 Performed By: #### L 100.0500, L500.2500 #### [facility] [address] [place], [address] Sodium [Moles/Vol] 143 mmol/L Normal 133-145 [facility] Comment on above: Order Comment: 311-2 Performed By: #### L 100.0500, L500.2500 #### [facility] [address] [place], [address] Urea nitrogen [Mass/Vol] 15 mg/dL Normal 4-19 [facility] Comment on above: Order Comment: 311-2 Performed By: #### L 100.0500, L500.2500 #### [facility] [address] [place], [address] Bilirubin Test strip Ql (U)O rdered By: Jmaeson Corral on 09-17-2024 Bilirubin Ql (U) Negative Negative [facility] CBC-Complete Blood Cnt No Di ffon 09-17-2024 Erythrocyte distribution width (RBC) [Ratio] 13.7 % Normal 11.6-14.6 [facility] Comment on above: Order Comment: 311-2 Performed By: #### L 100.0500, L500.2500 #### [facility] [address] [place], [address] Hematocrit (Bld) [Volume fraction] 35.4 % Low 37-47 [facility] Comment on above: Order Comment: 311-2 Performed By: #### L 100.0500, L500.2500 #### [facility] [address] [place], [address] Hemoglobin (Bld) [Mass/Vol] 10.7 g/dL Low 12.0-15.0 [facility] Comment on above: Order Comment: 311-2 Performed By: #### L 100.0500, L500.2500 #### [facility] [address] [place], [address] MCH (RBC) [Entitic mass] 30.9 pg Normal 27.0-32.0 [facility] Comment on above: Order Comment: 311-2 Performed By: #### L 100.0500, L500.2500 #### [facility] [address] [place], [address] MCHC (RBC) [Mass/Vol] 30.2 g/dL Low 32-36 [facility] Comment on above: Order Comment: 311-2 Performed By: #### L 100.0500, L500.2500 #### [facility] [address] [place], [address] MCV (RBC) [Entitic vol] 102.3 fL High 81-99 [facility] Comment on above: Order Comment: 311-2 Performed By: #### L 100.0500, L500.2500 #### [facility] [address] [place], [address] Platelet mean volume (Bld) [Entitic vol] 9.9 fL Normal 6.2-12.0 [facility] Comment on above: Order Comment: 311-2 Performed By: #### L 100.0500, L500.2500 #### [facility] [address] [place], [address] Platelets (Bld) [#/Vol] 246 10*3/uL Normal 150-450 [facility] Comment on above: Order Comment: 311-2 Performed By: #### L 100.0500, L500.2500 #### [facility] [address] [place], [address] RBC (Bld) [#/Vol] 3.46 10*6/uL Low 4.2-5.4 [facility] Comment on above: Order Comment: 311-2 Performed By: #### L 100.0500, L500.2500 #### [facility] [address] [place], [address] RDW SD 52.1 fl High 35.1-43.9 [facility] Comment on above: Order Comment: 311-2 Performed By: #### L 100.0500, L500.2500 #### [facility] [address] [place], [address] WBC (Bld) [#/Vol] 8.0 10*3/uL Normal 4.4-11.0 [facility] Comment on above: Order Comment: 311-2 Performed By: #### L 100.0500, L500.2500 #### [facility] [address] [place], [address] Calcium oxalate crystals det ection in urine sediment by light microscopyOrdered By: Jameson Corral on 09-17-2024 Calcium oxalate crystals LM Ql (Urine sed) 1+ /hpf [facility] Carbon dioxide, total [Moles /volume] in Central venous bloodOrdered By: Jameson Corral on 09-17-2024 CO2 [Moles/Vol] 32.9 mmol/L High 21.0-32.0 [facility] Chloride assayOrdered By: Zack Jeong on 09-17-2024 Chloride [Moles/Vol] 103 mmol/L 98-108 [facility] Erythrocyte distribution wid th ratioOrdered By: Jameson Corral on 09-17-2024 Erythrocyte distribution width (RBC) [Ratio] 13.7 % 11.6-14.6 [facility] Erythrocyte distribution wid th standard deviationOrdered By: Jameson Corral on 09-17-2024 Erythrocyte distribution width (RBC) [Ratio] 52.1 fl High 35.1-43.9 [facility] Glomerular filtration rate ( GFR) estimation/1.73 sq m using serum, plasma, or whole bOrdered By: Jameson Corral on 09-17-2024 GFR/1.73 sq M.predicted among non-blacks MDRD (S/P/Bld) [Vol rate/Area] 100 mL/min/{1.73_m2} >60 [facility] Comment on above: mL/min/1.73m2 CKD-EP I Creatinine Equation (2020) Hematocrit Auto (Bld) [Volum e fraction]Ordered By: Jameson Corral on 09-17-2024 Hematocrit (Bld) [Volume fraction] 35.4 % Low 37-47 [facility] Hemoglobin measurementOrdere d By: Jameson Corral on 09-17-2024 Hemoglobin (Bld) [Mass/Vol] 10.7 g/dL Low 12.0-15.0 [facility] Ketones Test strip Ql (U)Ord ered By: Jameson Corral on 09-17-2024 Ketones Ql (U) Negative Negative [facility] MCV (mean corpuscular volume ) determinationOrdered By: Jameson Corral on 09-17-2024 MCV (RBC) [Entitic vol] 102.3 fL High 81-99 [facility] Mean corpuscular hemoglobin (MCH) determinationOrdered By: Jameson Corral on 09-17-2024 MCH (RBC) [Entitic mass] 30.9 pg 27.0-32.0 [facility] Mean corpuscular hemoglobin concentration (MCHC) determinationOrdered By: Jameson Corral on 09-17-2024 MCHC (RBC) [Mass/Vol] 30.2 g/dL Low 32-36 [facility] Mean platelet volume determi nationOrdered By: Jameson Corral on 09-17-2024 Platelet mean volume (Bld) [Entitic vol] 9.9 fL 6.2-12.0 [facility] Microscopic analysis of urin e for red blood cells (RBC)Ordered By: Jameson Corral on 09-17-2024 Microscopic analysis of urine for red blood cells (RBC) 0 SEEN /hpf 0-5 [facility] Mucus LM Ql (Urine sed)Order ed By: Jameson Corral on 09-17-2024 Mucus Ql (Urine sed) 0 SEEN /hpf [facility] Nitrite Test strip Ql (U)Ord ered By: Jameson Corral on 09-17-2024 Nitrite Ql (U) Negative Negative [facility] Platelet countOrdered By: Zack Jeong on 09-17-2024 Platelets (Bld) [#/Vol] 246 10*3/uL 150-450 [facility] Potassium measurement (mass/ volume)Ordered By: Jameson Corral on 09-17-2024 Potassium (Unsp spec) [Mass/Vol] 4.1 mmol/L 3.3-5.1 [facility] Protein Test strip Ql (U)Ord ered By: Jameson Corral on 09-17-2024 Protein Ql (U) 15 mg/dl High Negative [facility] RBC Auto (Bld) [#/Vol]Ordere d By: Jameson Corral on 09-17-2024 RBC (Bld) [#/Vol] 3.46 10*6/uL Low 4.2-5.4 [facility] Serum creatinine measurement (mass/volume)Ordered By: Jameson Corral on 09-17-2024 Creatinine [Mass/Vol] 0.56 mg/dL Low 0.70-1.20 [facility] Serum glucose measurement (m ass/volume)Ordered By: Jameson Corral on 09-17-2024 Glucose [Mass/Vol] 80 mg/dL 70-99 [facility] Serum or plasma calcium nessa urement (mass/volume)Ordered By: Jameson Corral on 09-17-2024 Calcium [Mass/Vol] 8.9 mg/dL 7.6-11.0 [facility] Serum or plasma urea nitroge n measurement (mass/volume)Ordered By: Jameson Corral on 09-17-2024 Urea nitrogen [Mass/Vol] 15 mg/dL 4-19 [facility] Sodium levelOrdered By: Fabian Corral on 09-17-2024 Sodium [Moles/Vol] 143 mmol/L 133-145 [facility] Squamous epithelial cells de tection in urine sediment by light microscopyOrdered By: Jameson Corral on 09-17-2024 Epithelial cells.squamous LM Ql (Urine sed) 0 SEEN /hpf 5-10 [facility] Urine clarityOrdered By: Kateryna Corral on 09-17-2024 Clarity (U) Sl. Cloudy Clear [facility] Urine color determinationOrd ered By: Jameson Corral on 09-17-2024 Color (U) Yellow Yellow [facility] Urine cultureOrdered By: Kateryna Corral on 09-17-2024 Bacteria identified Cx Nom (U) Mixed Gram Pos & Gram Neg Org Abnormal [facility] Urine glucose detectionOrder ed By: Jameson Corral on 09-17-2024 Glucose Ql (U) Normal mg/dl Normal [facility] Urine leukocyte esterase det ection by dipstickOrdered By: Jameson Corral on 09-17-2024 Leukocyte esterase Test strip Ql (U) Negative Negative [facility] Urine pHOrdered By: Jameson wilson on 09-17-2024 pH (U) 6.0 [pH] 5.0 - 8.0 [facility] Urine sediment bacteria coun t by microscopy (number/high power field)Ordered By: Jameson Corral on 09-17-2024 Bacteria LM.HPF (Urine sed) [#/Area] 0 /[HPF] None Seen [facility] Urine specific gravity measu rementOrdered By: Jameson Corral on 09-17-2024 Specific gravity (U) [Rel density] 1.020 1.002-1.030 [facility] Urine urobilinogen measureme ntOrdered By: Jameson Corral on 09-17-2024 Urobilinogen Ql (U) Normal mg/dl Normal [facility] White blood cell (WBC) count Ordered By: Jameson Corral on 09-17-2024 WBC (Bld) [#/Vol] 8.0 10*3/uL 4.4-11.0 [facility] White blood cell countOrdere d By: Jameson Corral on 09-17-2024 White blood cell count 0 SEEN /hpf 0-5 [facility] Anion gap in Serum or Plasma Ordered By: Jameson Corral on 09-14-2024 Anion gap [Moles/Vol] 12 mmol/L - [facility] BUN/creatinine ratioOrdered By: Jameson Corral on 09-14-2024 Urea nitrogen/Creatinine [Mass ratio] 23.4 mg/mg High 01-07 [facility] Basic Metabolic Profile (BMP )on 09-14-2024 BUN/CRE 23.4 RATIO High 01-07 [facility] Comment on above: Order Comment: 311-2 Performed By: #### L 500.2500, L100.0500 #### [facility] [address] [place], [address] Calcium [Mass/Vol] 9.2 mg/dL Normal 7.6-11.0 [facility] Comment on above: Order Comment: 311-2 Performed By: #### L 500.2500, L100.0500 #### [facility] [address] [place], [address] Chloride [Moles/Vol] 98 mmol/L Normal 98-108 [facility] Comment on above: Order Comment: 311-2 Performed By: #### L 500.2500, L100.0500 #### [facility] [address] [place], [address] CO2 [Moles/Vol] 29.4 mmol/L Normal 21.0-32.0 [facility] Comment on above: Order Comment: 311-2 Performed By: #### L 500.2500, L100.0500 #### [facility] [address] [place], [address] Creatinine [Mass/Vol] 0.56 mg/dL Low 0.70-1.20 [facility] Comment on above: Order Comment: 311-2 Performed By: #### L 500.2500, L100.0500 #### [facility] [address] [place], [address] GAP 12 Normal 08-02 [facility] Comment on above: Order Comment: 311-2 Performed By: #### L 500.2500, L100.0500 #### [facility] [address] [place], [address] GFR/1.73 sq M.predicted among non-blacks MDRD (S/P/Bld) [Vol rate/Area] 100 mL/min/{1.73_m2} Normal >60 [facility] Comment on above: Order Comment: 311-2 Result Comment: mL/m in/1.73m2 CKD-EPI Creatinine Equation (2020) Performed By: #### L 500.2500, L100.0500 #### [facility] [address] [place], [address] Glucose [Mass/Vol] 103 mg/dL High 70-99 [facility] Comment on above: Order Comment: 311-2 Performed By: #### L 500.2500, L100.0500 #### [facility] [address] [place], [address] Potassium [Moles/Vol] 3.9 mmol/L Normal 3.3-5.1 [facility] Comment on above: Order Comment: 311-2 Performed By: #### L 500.2500, L100.0500 #### [facility] [address] [place], [address] Sodium [Moles/Vol] 139 mmol/L Normal 133-145 [facility] Comment on above: Order Comment: 311-2 Performed By: #### L 500.2500, L100.0500 #### [facility] [address] [place], [address] Urea nitrogen [Mass/Vol] 13 mg/dL Normal 4-19 [facility] Comment on above: Order Comment: 311-2 Performed By: #### L 500.2500, L100.0500 #### [facility] [address] [place], [address] CBC-Complete Blood Cnt No Di ffon 06-27-2025 Erythrocyte distribution width (RBC) [Ratio] 13.4 % Normal 11.6-14.6 [facility] Comment on above: Order Comment: 311-2 Performed By: #### L 500.2500, L100.0500 #### [facility] [address] [place], [address] Hematocrit (Bld) [Volume fraction] 38.3 % Normal 37-47 [facility] Comment on above: Order Comment: 311-2 Performed By: #### L 500.2500, L100.0500 #### [facility] [address] [place], [address] Hemoglobin (Bld) [Mass/Vol] 12.1 g/dL Normal 12.0-15.0 [facility] Comment on above: Order Comment: 311-2 Performed By: #### L 500.2500, L100.0500 #### [facility] [address] [place], [address] MCH (RBC) [Entitic mass] 32.0 pg Normal 27.0-32.0 [facility] Comment on above: Order Comment: 311-2 Performed By: #### L 500.2500, L100.0500 #### [facility] [address] [place], [address] MCHC (RBC) [Mass/Vol] 31.6 g/dL Low 32-36 [facility] Comment on above: Order Comment: 311-2 Performed By: #### L 500.2500, L100.0500 #### [facility] [address] [place], [address] MCV (RBC) [Entitic vol] 101.3 fL High 81-99 [facility] Comment on above: Order Comment: 311-2 Performed By: #### L 500.2500, L100.0500 #### [facility] [address] [place], [address] Platelet mean volume (Bld) [Entitic vol] 9.9 fL Normal 6.2-12.0 [facility] Comment on above: Order Comment: 311-2 Performed By: #### L 500.2500, L100.0500 #### [facility] [address] [place], [address] Platelets (Bld) [#/Vol] 274 10*3/uL Normal 150-450 [facility] Comment on above: Order Comment: 311-2 Performed By: #### L 500.2500, L100.0500 #### [facility] [address] [place], [address] RBC (Bld) [#/Vol] 3.78 10*6/uL Low 4.2-5.4 [facility] Comment on above: Order Comment: 311-2 Performed By: #### L 500.2500, L100.0500 #### [facility] [address] [place], [address] RDW SD 50.9 fl High 35.1-43.9 [facility] Comment on above: Order Comment: 311-2 Performed By: #### L 500.2500, L100.0500 #### [facility] [address] [place], [address] WBC (Bld) [#/Vol] 11.4 10*3/uL High 4.4-11.0 [facility] Comment on above: Order Comment: 311-2 Performed By: #### L 500.2500, L100.0500 #### [facility] [address] [place], [address] Carbon dioxide, total [Moles /volume] in Central venous bloodOrdered By: Jameson Corral on 09-14-2024 CO2 [Moles/Vol] 29.4 mmol/L 21.0-32.0 [facility] Chloride assayOrdered By: Zack Jeong on 09-14-2024 Chloride [Moles/Vol] 98 mmol/L 98-108 [facility] Erythrocyte distribution wid th ratioOrdered By: Jameson Corral on 09-14-2024 Erythrocyte distribution width (RBC) [Ratio] 13.4 % 11.6-14.6 [facility] Erythrocyte distribution wid th standard deviationOrdered By: Jameson Corral on 09-14-2024 Erythrocyte distribution width (RBC) [Ratio] 50.9 fl High 35.1-43.9 [facility] Glomerular filtration rate ( GFR) estimation/1.73 sq m using serum, plasma, or whole bOrdered By: Jameson Corral on 09-14-2024 GFR/1.73 sq M.predicted among non-blacks MDRD (S/P/Bld) [Vol rate/Area] 100 mL/min/{1.73_m2} >60 [facility] Comment on above: mL/min/1.73m2 CKD-EP I Creatinine Equation (2020) Hematocrit Auto (Bld) [Volum e fraction]Ordered By: Jameson Corral on 09-14-2024 Hematocrit (Bld) [Volume fraction] 38.3 % 37-47 [facility] Hemoglobin measurementOrdere d By: Jameson Corral on 09-14-2024 Hemoglobin (Bld) [Mass/Vol] 12.1 g/dL 12.0-15.0 [facility] MCV (mean corpuscular volume ) determinationOrdered By: Jameson Corral on 09-14-2024 MCV (RBC) [Entitic vol] 101.3 fL High 81-99 [facility] Mean corpuscular hemoglobin (MCH) determinationOrdered By: Jameson Corral on 09-14-2024 MCH (RBC) [Entitic mass] 32.0 pg 27.0-32.0 [facility] Mean corpuscular hemoglobin concentration (MCHC) determinationOrdered By: Jameson Corral on 09-14-2024 MCHC (RBC) [Mass/Vol] 31.6 g/dL Low 32-36 [facility] Mean platelet volume determi nationOrdered By: Jameson Corral on 09-14-2024 Platelet mean volume (Bld) [Entitic vol] 9.9 fL 6.2-12.0 [facility] Platelet countOrdered By: Zack Jeong on 09-14-2024 Platelets (Bld) [#/Vol] 274 10*3/uL 150-450 [facility] Potassium measurement (mass/ volume)Ordered By: Jameson Corral on 09-14-2024 Potassium (Unsp spec) [Mass/Vol] 3.9 mmol/L 3.3-5.1 [facility] RBC Auto (Bld) [#/Vol]Ordere d By: Jameson Corral on 09-14-2024 RBC (Bld) [#/Vol] 3.78 10*6/uL Low 4.2-5.4 [facility] Serum creatinine measurement (mass/volume)Ordered By: Jameson Corral on 09-14-2024 Creatinine [Mass/Vol] 0.56 mg/dL Low 0.70-1.20 [facility] Serum glucose measurement (m ass/volume)Ordered By: Jameson Corral on 09-14-2024 Glucose [Mass/Vol] 103 mg/dL High 70-99 [facility] Serum or plasma calcium nessa urement (mass/volume)Ordered By: Jameson Corral on 09-14-2024 Calcium [Mass/Vol] 9.2 mg/dL 7.6-11.0 [facility] Serum or plasma urea nitroge n measurement (mass/volume)Ordered By: Jameson Corral on 09-14-2024 Urea nitrogen [Mass/Vol] 13 mg/dL 4-19 [facility] Sodium levelOrdered By: Fabian Corral on 09-14-2024 Sodium [Moles/Vol] 139 mmol/L 133-145 [facility] White blood cell (WBC) count Ordered By: Jameson Corral on 09-14-2024 WBC (Bld) [#/Vol] 11.4 10*3/uL High 4.4-11.0 [facility] 36on 09-07-2024 36 Spoke to Nilesh from [facility] and scheduled patient for a follow up on 09/24@10am. Patient has not been seen for quite a while and also is requesting port removal to be scheduled. Normal [facility] 36 Nilesh from [facility] states pt's port was flushed but there was no blood draw back. Patient requested for the port to be removed due to not being used for roughly 1 year. Please contact Nilesh with further questions at [phone] Normal [facility] Progress Noteon 09-06-2024 Progress Note Normal [facility] Thyroid Stim Hormone (TSH)on 08-22-2024 TSH 0.786 uIU/mL Normal 0.300-4.200 [facility] Comment on above: Order Comment: 102.2 Performed By: #### L 400.0001, M100.2200 #### [facility] [address] [place], [address] 37on 08-20-2024 37 Normal [facility] Progress Noteon 08-20-2024 Progress Note Normal [facility] Basic Metabolic Profile (BMP )on 08-15-2024 BUN/CRE 28.5 RATIO High 10-20 [facility] Comment on above: Order Comment: 102-2 Performed By: #### L 100.0500, L500.2500 #### [facility] [address] [place], [address] Calcium [Mass/Vol] 8.8 mg/dL Normal 7.6-11.0 [facility] Comment on above: Order Comment: 102-2 Performed By: #### L 100.0500, L500.2500 #### [facility] [address] [place], [address] Chloride [Moles/Vol] 103 mmol/L Normal 98-108 [facility] Comment on above: Order Comment: 102-2 Performed By: #### L 100.0500, L500.2500 #### [facility] [address] [place], [address] CO2 [Moles/Vol] 31.7 mmol/L Normal 21.0-32.0 [facility] Comment on above: Order Comment: 102-2 Performed By: #### L 100.0500, L500.2500 #### [facility] [address] [place], [address] Creatinine [Mass/Vol] 0.47 mg/dL Low 0.70-1.20 [facility] Comment on above: Order Comment: 102-2 Performed By: #### L 100.0500, L500.2500 #### [facility] [address] [place], [address] GAP 7 Normal 5-15 [facility] Comment on above: Order Comment: 102-2 Performed By: #### L 100.0500, L500.2500 #### [facility] [address] [place], [address] GFR/1.73 sq M.predicted among non-blacks MDRD (S/P/Bld) [Vol rate/Area] 104 mL/min/{1.73_m2} Normal >60 [facility] Comment on above: Order Comment: 102-2 Result Comment: mL/m in/1.73m2 CKD-EPI Creatinine Equation (2020) Performed By: #### L 100.0500, L500.2500 #### [facility] [address] [place], [address] Glucose [Mass/Vol] 85 mg/dL Normal 70-99 [facility] Comment on above: Order Comment: 102-2 Performed By: #### L 100.0500, L500.2500 #### [facility] [address] [place], [address] Potassium [Moles/Vol] 3.9 mmol/L Normal 3.3-5.1 [facility] Comment on above: Order Comment: 102-2 Performed By: #### L 100.0500, L500.2500 #### [facility] [address] [place], [address] Sodium [Moles/Vol] 142 mmol/L Normal 133-145 [facility] Comment on above: Order Comment: 102-2 Performed By: #### L 100.0500, L500.2500 #### [facility] [address] [place], [address] Urea nitrogen [Mass/Vol] 13 mg/dL Normal 4-19 [facility] Comment on above: Order Comment: 102-2 Performed By: #### L 100.0500, L500.2500 #### [facility] [address] [place], [address] CBC-Complete Blood Cnt No Di ffon 08-15-2024 Erythrocyte distribution width (RBC) [Ratio] 14.0 % Normal 11.6-14.6 [facility] Comment on above: Order Comment: 102-2 Performed By: #### L 100.0500, L500.2500 #### [facility] [address] [place], [address] Hematocrit (Bld) [Volume fraction] 34.7 % Low 37-47 [facility] Comment on above: Order Comment: 102-2 Performed By: #### L 100.0500, L500.2500 #### [facility] [address] [place], [address] Hemoglobin (Bld) [Mass/Vol] 10.4 g/dL Low 12.0-15.0 [facility] Comment on above: Order Comment: 102-2 Performed By: #### L 100.0500, L500.2500 #### [facility] [address] [place], [address] MCH (RBC) [Entitic mass] 31.2 pg Normal 27.0-32.0 [facility] Comment on above: Order Comment: 102-2 Performed By: #### L 100.0500, L500.2500 #### [facility] [address] [place], [address] MCHC (RBC) [Mass/Vol] 30.0 g/dL Low 32-36 [facility] Comment on above: Order Comment: 102-2 Performed By: #### L 100.0500, L500.2500 #### [facility] [address] [place], [address] MCV (RBC) [Entitic vol] 104.2 fL High 81-99 [facility] Comment on above: Order Comment: 102-2 Performed By: #### L 100.0500, L500.2500 #### [facility] [address] [place], [address] Platelet mean volume (Bld) [Entitic vol] 9.8 fL Normal 6.2-12.0 [facility] Comment on above: Order Comment: 102-2 Performed By: #### L 100.0500, L500.2500 #### [facility] [address] [place], [address] Platelets (Bld) [#/Vol] 236 10*3/uL Normal 150-450 [facility] Comment on above: Order Comment: 102-2 Performed By: #### L 100.0500, L500.2500 #### [facility] [address] [place], [address] RBC (Bld) [#/Vol] 3.33 10*6/uL Low 4.2-5.4 [facility] Comment on above: Order Comment: 102-2 Performed By: #### L 100.0500, L500.2500 #### [facility] [address] [place], [address] RDW SD 54.0 fl High 35.1-43.9 [facility] Comment on above: Order Comment: 102-2 Performed By: #### L 100.0500, L500.2500 #### [facility] [address] [place], [address] WBC (Bld) [#/Vol] 9.4 10*3/uL Normal 4.4-11.0 [facility] Comment on above: Order Comment: 102-2 Performed By: #### L 100.0500, L500.2500 #### [facility] [address] [place], [address] [id number] 08-10-2024 [id number] Patient Choice Patient Name: GONZALO DELUCA Date of : 1955 Normal [facility] 30on 08-08-2024 30 Normal [facility] 30 Normal [facility] [id number] 08-08-2024 [id number] Normal [facility] [id number] MAR, Discharge med list transmitted and 7000 in HENs to [facility] Perry Upatoi via [facility] per TCC request. [facility] BASIC METABOLIC PANELon 05- Anion gap [Moles/Vol] 8 mmol/L Normal 3-13 [facility] Comment on above: Performed By: #### L [id number] ####Account Services Associate: HANS PAULSON ([phone])[facility] ([facility])[address] [place] [address] Calcium [Mass/Vol] 8.6 mg/dL Low 8.8-10.0 [facility] Comment on above: Performed By: #### L [id number] ####Account Services Associate: HANS PAULSON ([phone])[facility] ([facility])[address] Chloride [Moles/Vol] 101 mmol/L Normal 98-107 [facility] Comment on above: Performed By: #### L [id number] ####Account Services Associate: HANS PALUSON ([phone])[facility] ([facility])[address] CO2 [Moles/Vol] 32 mmol/L High 23-31 [facility] Comment on above: Performed By: #### L [id number] ####Account Services Associate: HANS PAULSON ([phone])[facility] [place] ([facility])[address] [place] [address] [place] Creatinine [Mass/Vol] 0.63 mg/dL Normal 0.57-1.11 [facility] Comment on above: Performed By: #### L [id number] ####Account Services Associate: HANS PAULSON ([phone])[facility] ([facility])[address] [place] [address] [place] GLOMERULAR FILTRATION RATE ML/MIN/1.73 SQ M.PREDICTED >90.0 Normal >60.0 [facility] Comment on above: Result Comment: Calc ulation based on the Chronic Kidney Disease Epidemiology Collaboration (CKD-EPI) equation refit without adjustment for race Performed By: #### L [id number] ####Account Services Associate: HANS PAULSON ([phone])[facility] ([facility])[address] [place] [address] [place] Glucose [Mass/Vol] 99 mg/dL Normal 82-115 [facility] Comment on above: Performed By: #### L AB15 ####Account Services Associate: HANS PAULSON ([phone])[facility] ([facility])[address] [place] [address] [place] Potassium [Moles/Vol] 3.9 mmol/L Normal 3.5-5.1 [facility] Comment on above: Result Comment: [facility] potassium values may be up to 0.5 mmol/L lower than serum values. Performed By: #### L [id number] ####Account Services Associate: HANS PAULSON ([phone])[facility] [place] (SB[facility])[address] [place] [address] [place] Sodium [Moles/Vol] 141 mmol/L Normal 136-145 [facility] Comment on above: Performed By: #### L [id number] ####Account Services Associate: HANS PAULSON ([phone])[facility] ([facility])[address] [place] [address] [place] Urea nitrogen [Mass/Vol] 22 mg/dL Normal 9-23 [facility] Comment on above: Performed By: #### L [id number] ####Account Services Associate: HANS PAULSON ([phone])[facility] (SBHLAB)[address] [place] [address] Basic metabolic 1998 panelon 08-08-2024 Anion gap [Moles/Vol] 8 mmol/L 3 - 13 mmol/L [facility] Calcium [Mass/Vol] 8.6 mg/dL Low 8.8 - 10. 0 mg/dL [facility] Chloride [Moles/Vol] 101 mmol/L 98 - 10 7 mmol/L [facility] CO2 [Moles/Vol] 32 mmol/L High 23 - 31 mmol/L [facility] Creatinine [Mass/Vol] 0.63 mg/dL 0.57 - 1.11 mg/dL [facility] GFR/1.73 sq M.predicted (S/P/Bld) [Vol rate/Area] - PINF [facility] Comment on above: Calculation based on the Chronic Kidney Disease Epidemiology Collaboration (CKD-EPI) equation refit without adjustment for race Glucose [Mass/Vol] 99 mg/dL 82 - 115 mg/dL [facility] Interpretation and review of laboratory results Abnormal [facility] Potassium [Moles/Vol] 3.9 mmol/L 3.5 - 5.1 mmol/L [facility] Comment on above: Plasma potassium martín ues may be up to 0.5 mmol/L lower than serum values. Sodium [Moles/Vol] 141 mmol/L 136 - 145 mmol/L [facility] Urea nitrogen [Mass/Vol] 22 mg/dL 9 - 23 mg/d L [facility] CBC W Auto Differential pane l (Bld)on 08-08-2024 Basophils (Bld) [#/Vol] 0 10*3/uL 0.0 - 0.2 10*3/uL [facility] Basophils/100 WBC (Bld) 0.2 % 0.0 - 2.0 % [facility] Eosinophils (Bld) [#/Vol] 0.4 10*3/uL 0.0 - 0.5 10*3/uL [facility] Eosinophils/100 WBC (Bld) 2.9 % 0.0 - 6.0 % [facility] Erythrocyte distribution width (RBC) [Ratio] 14.6 % 11.5 - 15.0 % [facility] Hematocrit (Bld) [Volume fraction] 33.7 % Low 35.0 - 47.0 % [facility] Hemoglobin (Bld) [Mass/Vol] 10.4 g/dL Low 11.7 - 16.0 g/dL [facility] [employer] Immature granulocytes (Bld) [#/Vol] 0 10*3/uL NINF - 0.1 10*3/uL [facility] Immature granulocytes/100 WBC (Bld) 0.3 % 0.0 - 2.0 % [facility] Interpretation and review of laboratory results Abnormal [facility] Lymphocytes (Bld) [#/Vol] 1.1 10*3/uL 1.0 - 4.3 10*3/uL [facility] Lymphocytes/100 WBC (Bld) 9 % Low 15.0 - 45.0 % [facility] MCH (RBC) [Entitic mass] 31.3 pg 26. 0 - 34.0 pg [facility] MCHC (RBC) [Mass/Vol] 30.9 % 30.5 - 36.0 % [facility] MCV (RBC) [Entitic vol] 101.5 fL High 77.0 - 99.0 fL [facility] [employer] Monocytes (Bld) [#/Vol] 1.2 10*3/uL High 0.0 - 0.9 10*3/uL [facility] Monocytes/100 WBC (Bld) 9.6 % 5.0 - 13.0 % [facility] Neutrophils (Bld) [#/Vol] 9.8 10*3/uL High 1.8 - 7.5 10*3/uL [facility] Neutrophils/100 WBC (Bld) 78 % 38.0 - 82.0 % [facility] [employer] Nucleated RBC/100 WBC (Bld) [Ratio] 0 % [facility] [employer] Platelet mean volume (Bld) [Entitic vol] 9.8 fL 9.0 - 12.7 fL [facility] [employer] Platelets (Bld) [#/Vol] 192 10*3/uL 140 - 440 10*3/uL [facility] RBC (Bld) [#/Vol] 3.32 10*6/uL Low 3.80 - 5.2 0 10*6/uL [facility] WBC (Bld) [#/Vol] 12.6 10*3/uL High 3.6 - 10.7 10*3/uL [facility] CBC WITH AUTO DIFFERENTIALon 08-08-2024 Basophils (Bld) [#/Vol] 0.0 10*3/uL Normal 0.0-0.2 [facility] Comment on above: Performed By: #### L [id number] ####Account Services Associate: HANS PAULSON ([phone])[facility] [place] ([facility])[address] Basophils/100 WBC (Bld) 0.2 % Normal 0.0-2.0 [facility] Comment on above: Performed By: #### L [id number] ####Account Services Associate: HANS PAULSON ([phone])[facility] ([facility])[address] [place] [address] Eosinophils (Bld) [#/Vol] 0.4 10*3/uL Normal 0.0-0.5 [facility] Comment on above: Performed By: #### L [id number] ####Account Services Associate: HANS PAULSON ([phone])[facility] [place] ([facility])[address] [place] [address] Eosinophils/100 WBC (Bld) 2.9 % Normal 0.0-6.0 [facility] Comment on above: Performed By: #### L [id number] ####Account Services Associate: HANS PAULSON ([phone])[facility] [place] ([facility])[address] [place] [address] Erythrocyte distribution width (RBC) [Ratio] 14.6 % Normal 11.5-15.0 [facility] Comment on above: Performed By: #### L [id number] ####Account Services Associate: HANS PAULSON ([phone])[facility] [place] ([facility])[address] [place] [address] Hematocrit (Bld) [Volume fraction] 33.7 % Low 35.0-47.0 [facility] Comment on above: Performed By: #### L [id number] ####Account Services Associate: HANS PAULSON ([phone])[facility] ([facility])[address] Hemoglobin (Bld) [Mass/Vol] 10.4 g/dL Low 11.7-16.0 [facility] Comment on above: Performed By: #### L [id number] ####Account Services Associate: HANS PAULSON ([phone])[facility] ([facility])[address] IMMATURE GRANS % 0.3 % Normal 0.0-2.0 [facility] Comment on above: Performed By: #### L [id number] ####Account Services Associate: HANS PAULSON ([phone])[facility] ([facility])[address] IMMATURE GRANS ABSOLUTE 0.0 10*3/uL Normal <0.1 [facility] Comment on above: Performed By: #### L [id number] ####Account Services Associate: HANS PAULSON ([phone])[facility] ([facility])[address] Lymphocytes (Bld) [#/Vol] 1.1 10*3/uL Normal 1.0-4.3 [facility] Comment on above: Performed By: #### L [id number] ####Account Services Associate: HANS PAULSON ([phone])[facility] ([facility])[address] Lymphocytes/100 WBC (Bld) 9.0 % Low 15.0-45.0 [facility] Comment on above: Performed By: #### L [id number] ####Account Services Associate: HANS PAULSON ([phone])[facility] ([facility])[address] MCH (RBC) [Entitic mass] 31.3 pg Normal 26.0-34.0 [facility] Comment on above: Performed By: #### L [id number] ####Account Services Associate: HANS PAULSON ([phone])[facility] [place] (SBHLAB)[address] MCHC 30.9 % Normal 30.5-36.0 [facility] Comment on above: Performed By: #### L [id number] ####Account Services Associate: HANS ALCANTARESCOBAR ([phone])[facility] [place] (SB[facility])[address] MCV (RBC) [Entitic vol] 101.5 fL High 77.0-99.0 S [facility] Comment on above: Performed By: #### L [id number] ####Account Services Associate: HANS PAULSON ([phone])[facility] [place] ([facility])[address] Monocytes (Bld) [#/Vol] 1.2 10*3/uL High 0.0-0.9 [facility] Comment on above: Performed By: #### L [id number] ####Account Services Associate: HANS PAULSON ([phone])[facility] [place] ([facility])[address] Monocytes/100 WBC (Bld) 9.6 % Normal 5.0-13.0 S [facility] Comment on above: Performed By: #### L [id number] ####Account Services Associate: HANS PAULSON ([phone])[facility] [place] ([facility])[address] NEUTROPHILS ABSOLUTE 9.8 10*3/uL High 1.8-7.5 [facility] Comment on above: Performed By: #### L [id number] ####Account Services Associate: HANS PAULSON ([phone])[facility] [place] ([facility])[address] Neutrophils/100 WBC (Bld) 78.0 % Normal 38.0-82.0 [facility] Comment on above: Performed By: #### L [id number] ####Account Services Associate: HANS PAULSON ([phone])[facility] [place] ([facility])[address] NRBC 0.0 /100 WBCs Normal 0.0-2.0 [facility] Comment on above: Performed By: #### L [id number] ####Account Services Associate: HANS PAULSON ([phone])[facility] [place] (SB[facility])[address] Platelet mean volume (Bld) [Entitic vol] 9.8 fL Normal 9.0-12.7 [facility] Comment on above: Performed By: #### L [id number] ####Account Services Associate: HANS PAULSON ([phone])[facility] ([facility])[address] Platelets (Bld) [#/Vol] 192 10*3/uL Normal 140-440 [facility] Comment on above: Performed By: #### L [id number] ####Account Services Associate: HANS PAULSON ([phone])[facility] ([facility])[address] [place] [address] RBC (Bld) [#/Vol] 3.32 10*6/uL Low 3.80-5.20 [facility] Comment on above: Performed By: #### L [id number] ####Account Services Associate: HANS PAULSON ([phone])[facility] ([facility])[address] [place] [address] WBC (Bld) [#/Vol] 12.6 10*3/uL High 3.6-10.7 [facility] Comment on above: Performed By: #### L [id number] ####Account Services Associate: HANS PAULSON ([phone])[facility] ([facility])[address] COMPLETE URINALYSIS WITH REF FAMILIA TO CULTUREon 08-08-2024 BACTERIA (#/HPF) IN URINE Negative Normal Negative [facility] Comment on above: Performed By: #### L [id number] ####Account Services Associate: HANS PAULSON ([phone])[facility] [place] ([facility])[address] BILIRUBIN, TOTAL PRESENCE IN URINE Negative Normal Negative [facility] Comment on above: Performed By: #### L [id number] ####Account Services Associate: HANS WALDROPIVELISSE ([phone])[facility] ([facility])[address] Clarity (U) Clear Normal Clear [facility] Comment on above: Performed By: #### L [id number] ####Account Services Associate: HANS WALDROPIVELISSE ([phone])[facility] ([facility])[address] Color (U) Yellow Normal Lt. Yellow [facility] Comment on above: Performed By: #### L [id number] ####Account Services Associate: HANS ALCANTARESCOBAR ([phone])[facility] ([facility])[address] GLUCOSE (MG/DL) IN URINE Normal Normal Normal (<70 ) [facility] Comment on above: Performed By: #### L [id number] ####Account Services Associate: HANS ALCANTARESCOBAR ([phone])[facility] ([facility])[address] HEMOGLOBIN PRESENCE IN URINE Negative Normal Negative [facility] Comment on above: Performed By: #### L [id number] ####Account Services Associate: HANS ALCANTARESCOBAR ([phone])[facility] ([facility])[address] Ketones Ql (U) Negative Normal Negative [facility] Comment on above: Performed By: #### L [id number] ####Account Services Associate: HANS PAULSON ([phone])[facility] ([facility])[address] LEUKOCYTE ESTERASE PRESENCE IN URINE BY TEST STRIP Negative Normal Negative [facility] Comment on above: Performed By: #### L [id number] ####Account Services Associate: HANS PAULSON ([phone])[facility]ENT[facility]orm[facility] ([facility])[address] [place] [address] [place] MUCUS (#/LPF) IN URINE SEDIMENT Few Normal Negative [facility] Comment on above: Performed By: #### L [id number] ####Account Services Associate: HANS PAULSON ([phone])[facility] [place] ([facility])[address] NITRITE PRESENCE IN URINE Negative Normal Negative [facility] Comment on above: Performed By: #### L [id number] ####Account Services Associate: HANS PAULSON ([phone])[facility] [place] (HLAB)[address] pH (U) 6.0 [pH] Normal 5.0-8.0 [facility] Comment on above: Performed By: #### L [id number] ####Account Services Associate: HANS PAULSON ([phone])[facility] ([facility])[address] Protein (U) [Mass/Vol] 20 mg/dL Abnormal Negative [facility] Comment on above: Performed By: #### L [id number] ####Account Services Associate: HANS PAULSON ([phone])[facility] ([facility])[address] [place] [address] [place] RBC (#/HPF) IN URINE SEDIMENT 0-2 Normal 0-2 [facility] Comment on above: Performed By: #### L [id number] ####Account Services Associate: HANS PAULSON ([phone])[facility] ([facility])[address] Specific gravity (U) [Rel density] 1.026 Normal 1.005-1.030 [facility] Comment on above: Result Comment: ORDE R COMMENTS:A specimen with <=10 WBC is not consistent with inflammation. This specimen will not reflex to a urine culture. Performed By: #### L [id number] ####Account Services Associate: HANS AGUILARCER ([phone])[facility]ENTERNorm[facility] ([facility])[address] SQUAMOUS EPITHELIAL CELLS (#/HPF) IN URINE SEDIMENT 0-2 Normal 3-5 [facility] Comment on above: Performed By: #### L [id number] ####Account Services Associate: HANS WALDROPIVELISSE ([phone])[facility] ([facility])[address] UROBILINOGEN (MG/DL) IN URINE Normal Normal Normal (0-1) [facility] Comment on above: Performed By: #### L [id number] ####Account Services Associate: HANS WALDROPIVELISSE ([phone])[facility] ([facility])[address] WBC (LEUKOCYTE) (#/HPF) IN URINE SEDIMENT 3-5 Normal 0-5 [facility] Comment on above: Performed By: #### L [id number] ####Account Services Associate: HANS ALCANTARESCOBAR ([phone])[facility] ([facility])[address] [place] [address] Nursing Noteon 08-08-2024 Nursing Note [facility] Pickup scheduled for 3:30pm. Normal [facility] Nursing Note Normal [facility] Progress Noteon 08-08-2024 Progress Note Normal [facility] Progress Note Patient chart review ed and being rounded on. Note to follow. 6:29 AM 08/08/24 Rena Beverly MD Division of Hospitalist Medicine Acute care [facility] Normal [facility] Urinalysis complete panel (U )Ordered By: Ziyad Ruiz on 08-08-2024 Bacteria LM.HPF (Urine sed) [#/Area] Negative Negative /HPF [facility] Bilirubin Ql (U) Negative Negative mg/dL [facility] Clarity (U) Clear Clear [facility] Color (U) Yellow Lt. Yellow [facility] Epithelial cells.squamous LM.HPF (Urine sed) [#/Area] 0-2 [facility] Glucose Ql (U) Normal Normal (<70) mg/dL [facility] Hemoglobin Ql (U) Negative Negative mg/dL [facility] Interpretation and review of laboratory results Abnormal [facility] Ketones (U) [Mass/Vol] Negative Negat kenton mg/dL [facility] Leukocyte esterase Test strip Ql (U) Negative Negative Sandra/uL [facility] Mucus LM.HPF (Urine sed) [#/Area] Few Negative /LPF [facility] Nitrite Ql (U) Negative Negative [facility] th pH (U) 6.0 [pH] 5.0 - 8.0 pH [facility] Protein (U) [Mass/Vol] 20 mg/dL Abnormal Negative [facility] RBC LM.HPF (Urine sed) [#/Area] 0-2 [facility] Specific gravity (U) [Rel density] 1.026 1.005 - 1.030 [facility] Urobilinogen (U) [Mass/Vol] Normal Normal (0-1) mg/dL [facility] WBC LM.HPF (Urine sed) [#/Area] 3-5 [facility] A specimen with <=10 WBC is not consistent with inflammation. This specimen will not reflex to a urine culture. [facility] XR Chest 2 Viewson No significant change compared to the prior exam. Report Dictated on Electronically Signed By: Pawan Cordova MD Electronically Signed Date/Time: 08/08/2024 10:02 AM [facility] Patient Name: GONZALO DELUCA : 1955 [facility]#: [id number] Exam Date/Time: 08/08/2024 09:53 Procedure: XR CHEST [...] the spine similar to prior CT imaging. [facility] Pawan Cordova MD - 08/08/2024 Patient Name: GONZALO DELUCA : 1955 [facility]#: [id number] Exam Date/Time: 08/08/2024 09:53 Procedure: XR CHEST [...] Date/Time: 08/08/2024 10:02 AM EDT [facility] Radiology Study observation (narrative) [facility] XR Chest 2 ViewsOrdered By: Pawan Cordova on 08-08-2024 [facility] Work Phone: [phone] 08-07-2024 [id number] Normal [facility] BASIC METABOLIC PANELon 07-20 Anion gap [Moles/Vol] 7 mmol/L Normal 3-13 [facility] Comment on above: Performed By: #### L [id number] ####Account Services Associate: HANS PAULSON ([phone])[facility] (SBHLAB)[address] [place] [address] Calcium [Mass/Vol] 9.3 mg/dL Normal 8.8-10.0 [facility] Comment on above: Performed By: #### L [id number] ####Account Services Associate: HANS PAULSON ([phone])[facility]ENT[facility] (SBHLAB)[address] [place] [address] [place] Chloride [Moles/Vol] 101 mmol/L Normal 98-107 [facility] Comment on above: Performed By: #### L [id number] ####Account Services Associate: HANS WALDROPIVELISSE ([phone])[facility] (SBHLAB)[address] [place] [address] [place] CO2 [Moles/Vol] 33 mmol/L High 23-31 [facility] Comment on above: Performed By: #### L [id number] ####Account Services Associate: HANS ALCANTARESCOBAR ([phone])[facility] (SBHLAB)[address] Creatinine [Mass/Vol] 0.59 mg/dL Normal 0.57-1.11 [facility] Comment on above: Performed By: #### L [id number] ####Account Services Associate: HANS PAULSON ([phone])[facility] ([facility])[address] [place] [address] [place] GLOMERULAR FILTRATION RATE ML/MIN/1.73 SQ M.PREDICTED >90.0 Normal >60.0 [facility] Comment on above: Result Comment: Calc ulation based on the Chronic Kidney Disease Epidemiology Collaboration (CKD-EPI) equation refit without adjustment for race Performed By: #### L [id number] ####Account Services Associate: HANS PAULSON ([phone])[facility] (SBHLAB)[address] [place] [address] [place] Glucose [Mass/Vol] 124 mg/dL High 82-115 [facility] Comment on above: Performed By: #### L [id number] ####Account Services Associate: HANS PAULSON ([phone])[facility] (SBHLAB)[address] [place] [address] [place] Potassium [Moles/Vol] 3.7 mmol/L Normal 3.5-5.1 [facility] Comment on above: Result Comment: [facility] potassium values may be up to 0.5 mmol/L lower than serum values. Performed By: #### L [id number] ####Account Services Associate: HANS WALDROPKimESCOBAR ([phone])[facility] (SBHLAB)[address] [place] [address] Sodium [Moles/Vol] 141 mmol/L Normal 136-145 [facility] Comment on above: Performed By: #### L [id number] ####Account Services Associate: HANS WALDROPIVELISSE ([phone])[facility] (SBHLAB)[address] Urea nitrogen [Mass/Vol] 28 mg/dL High 9-23 [facility] Comment on above: Performed By: #### L [id number] ####Account Services Associate: HANS LORENE ([phone])[facility] ([facility])[address] [place] [address] Basic metabolic 1998 panelon 08-07-2024 Anion gap [Moles/Vol] 7 mmol/L 3 - 13 mmol/L [facility] Calcium [Mass/Vol] 9.3 mg/dL 8.8 - 10. 0 mg/dL [facility] Chloride [Moles/Vol] 101 mmol/L 98 - 10 7 mmol/L [facility] CO2 [Moles/Vol] 33 mmol/L High 23 - 31 mmol/L [facility] Creatinine [Mass/Vol] 0.59 mg/dL 0.57 - 1.11 mg/dL [facility] GFR/1.73 sq M.predicted (S/P/Bld) [Vol rate/Area] - PINF [facility] Comment on above: Calculation based on the Chronic Kidney Disease Epidemiology Collaboration (CKD-EPI) equation refit without adjustment for race Glucose [Mass/Vol] 124 mg/dL High 82 - 115 mg/dL [facility] Interpretation and review of laboratory results Abnormal [facility] Potassium [Moles/Vol] 3.7 mmol/L 3.5 - 5.1 mmol/L [facility] Comment on above: Plasma potassium martín ues may be up to 0.5 mmol/L lower than serum values. Sodium [Moles/Vol] 141 mmol/L 136 - 145 mmol/L [facility] Urea nitrogen [Mass/Vol] 28 mg/dL High 9 - 23 mg/d L [facility] CBC W Auto Differential pane l (Bld)Ordered By: Crystal Dupont on 08-07-2024 Basophils (Bld) [#/Vol] 0 10*3/uL 0.0 - 0.2 10*3/uL [facility] Basophils/100 WBC (Bld) 0.2 % 0.0 - 2.0 % [facility] Eosinophils (Bld) [#/Vol] 0.3 10*3/uL 0.0 - 0.5 10*3/uL [facility] Eosinophils/100 WBC (Bld) 3.2 % 0.0 - 6.0 % [facility] Erythrocyte distribution width (RBC) [Ratio] 14.3 % 11.5 - 15.0 % [facility] Hematocrit (Bld) [Volume fraction] 33.8 % Low 35.0 - 47.0 % [facility] Hemoglobin (Bld) [Mass/Vol] 10.5 g/dL Low 11.7 - 16.0 g/dL [facility] Immature granulocytes (Bld) [#/Vol] 0 10*3/uL NINF - 0.1 10*3/uL [facility] Immature granulocytes/100 WBC (Bld) 0.1 % 0.0 - 2.0 % [facility] Interpretation and review of laboratory results Abnormal [facility] Lymphocytes (Bld) [#/Vol] 1.2 10*3/uL 1.0 - 4.3 10*3/uL [facility] Lymphocytes/100 WBC (Bld) 14.2 % Low 15.0 - 45.0 % [facility] MCH (RBC) [Entitic mass] 31.1 pg 26. 0 - 34.0 pg [facility] MCHC (RBC) [Mass/Vol] 31.1 % 30.5 - 36.0 % [facility] MCV (RBC) [Entitic vol] 100 fL High 77.0 - 99.0 fL [facility] Monocytes (Bld) [#/Vol] 0.8 10*3/uL 0.0 - 0.9 10*3/uL [facility] Monocytes/100 WBC (Bld) 9.6 % 5.0 - 13.0 % [facility] Neutrophils (Bld) [#/Vol] 6.3 10*3/uL 1.8 - 7.5 10*3/uL [facility] Neutrophils/100 WBC (Bld) 72.7 % 38.0 - 82.0 % [facility] Nucleated RBC/100 WBC (Bld) [Ratio] 0 % [facility] Platelet mean volume (Bld) [Entitic vol] 9.9 fL 9.0 - 12.7 fL [facility] Platelets (Bld) [#/Vol] 189 10*3/uL 140 - 440 10*3/uL [facility] RBC (Bld) [#/Vol] 3.38 10*6/uL Low 3.80 - 5.2 0 10*6/uL [facility] WBC (Bld) [#/Vol] 8.7 10*3/uL 3.6 - 10.7 10*3/uL [facility] CBC WITH AUTO DIFFERENTIALon 08-07-2024 Basophils (Bld) [#/Vol] 0.0 10*3/uL Normal 0.0-0.2 [facility] Comment on above: Performed By: #### L [id number] ####Account Services Associate: HANS PAULSON ([phone])[facility] (SBAB)[address] [place] [address] Basophils/100 WBC (Bld) 0.2 % Normal 0.0-2.0 [facility] Comment on above: Performed By: #### L [id number] ####Account Services Associate: HANS PAULSON ([phone])[facility] HOSPITALRaimundo (SBHLAB)[address] Eosinophils (Bld) [#/Vol] 0.3 10*3/uL Normal 0.0-0.5 [facility] Comment on above: Performed By: #### L [id number] ####Account Services Associate: HANS PAULSON ([phone])[facility] (SBHLAB)[address] Eosinophils/100 WBC (Bld) 3.2 % Normal 0.0-6.0 [facility] Comment on above: Performed By: #### L [id number] ####Account Services Associate: HANS PAULSON ([phone])[facility] (SBHLAB)[address] [place] [address] Erythrocyte distribution width (RBC) [Ratio] 14.3 % Normal 11.5-15.0 [facility] Comment on above: Performed By: #### L [id number] ####Account Services Associate: HANS PAULSON ([phone])[facility] ([facility])[address] Hematocrit (Bld) [Volume fraction] 33.8 % Low 35.0-47.0 [facility] Comment on above: Performed By: #### L [id number] ####Account Services Associate: HANS PAULSON ([phone])[facility] ([facility])[address] [place] [address] Hemoglobin (Bld) [Mass/Vol] 10.5 g/dL Low 11.7-16.0 [facility] Comment on above: Performed By: #### L [id number] ####Account Services Associate: HANS PAULSON ([phone])[facility] ([facility])[address] [place] [address] IMMATURE GRANS % 0.1 % Normal 0.0-2.0 [facility] Comment on above: Performed By: #### L [id number] ####Account Services Associate: HANS PAULSON ([phone])[facility] ([facility])[address] [place] [address] IMMATURE GRANS ABSOLUTE 0.0 10*3/uL Normal <0.1 [facility] Comment on above: Performed By: #### L [id number] ####Account Services Associate: HANS PAULSON ([phone])[facility] ([facility])[address] [place] [address] Lymphocytes (Bld) [#/Vol] 1.2 10*3/uL Normal 1.0-4.3 [facility] Comment on above: Performed By: #### L [id number] ####Account Services Associate: HANS PAULSON ([phone])[facility] [place] (SBHLAB)[address] Lymphocytes/100 WBC (Bld) 14.2 % Low 15.0-45.0 [facility] Comment on above: Performed By: #### L [id number] ####Account Services Associate: HANS ALCANTARESCOBAR ([phone])[facility]ENTERNorma [place] (SBHLAB)[address] MCH (RBC) [Entitic mass] 31.1 pg Normal 26.0-34.0 [facility] Comment on above: Performed By: #### L [id number] ####Account Services Associate: HANS PAULSON ([phone])[facility]ENTERNorma [facility]ITAL[facility] (SBHLAB)[address] MCHC 31.1 % Normal 30.5-36.0 [facility] Comment on above: Performed By: #### L [id number] ####Account Services Associate: HANS ALCANTARESCOBAR ([phone])[facility]ENTERNorma [place] (SBHLAB)[address] MCV (RBC) [Entitic vol] 100.0 fL High 77.0-99.0 [facility] Comment on above: Performed By: #### L [id number] ####Account Services Associate: HANS PAULSON ([phone])[facility]ENTERNorma [facility]ITALR[facility] (SBHLAB)[address] Monocytes (Bld) [#/Vol] 0.8 10*3/uL Normal 0.0-0.9 [facility] Comment on above: Performed By: #### L [id number] ####Account Services Associate: HANS PAULSON ([phone])[facility]ENTERNorma [place] (SBHLAB)[address] Monocytes/100 WBC (Bld) 9.6 % Normal 5.0-13.0 [facility] Comment on above: Performed By: #### L [id number] ####Account Services Associate: HANS PAULSON ([phone])[facility] (SBHLAB)[address] NEUTROPHILS ABSOLUTE 6.3 10*3/uL Normal 1.8-7.5 [facility] Comment on above: Performed By: #### L [id number] ####Account Services Associate: HANS PAULSON ([phone])[facility]ENTERA [place] (SBHLAB)[address] Neutrophils/100 WBC (Bld) 72.7 % Normal 38.0-82.0 [facility] Comment on above: Performed By: #### L [id number] ####Account Services Associate: HANS PAULSON ([phone])[facility]A [place] (SBHLAB)[address] NRBC 0.0 /100 WBCs Normal 0.0-2.0 [facility] Comment on above: Performed By: #### L [id number] ####Account Services Associate: HANS PAULSON ([phone])[facility]A [place] (SBHLAB)[address] Platelet mean volume (Bld) [Entitic vol] 9.9 fL Normal 9.0-12.7 [facility] Comment on above: Performed By: #### L [id number] ####Account Services Associate: HANS PAULSON ([phone])[facility]A [place] (SBHLAB)[address] [place] [address] [place] Platelets (Bld) [#/Vol] 189 10*3/uL Normal 140-440 [facility] Comment on above: Performed By: #### L [id number] ####Account Services Associate: HANS PAULSON ([phone])[facility]A [place] (SBHLAB)[address] [place] [address] [place] RBC (Bld) [#/Vol] 3.38 10*6/uL Low 3.80-5.20 [facility] Comment on above: Performed By: #### L [id number] ####Account Services Associate: HANS [phone])[facility]ENTERNorma [place] (SBHLAB)[address] WBC (Bld) [#/Vol] 8.7 10*3/uL Normal 3.6-10.7 [facility] Comment on above: Performed By: #### L [id number] ####Account Services Associate: HANS PAULSON ([phone])[facility] (SBHLAB)[address] Progress Noteon 08-07-2024 Progress Note Normal [facility] Progress Note Normal [facility] 30on 08-06-2024 30 Normal [facility] 30 Normal [facility] 30 Normal [facility] [id number] 08-06-2024 [id number] Normal [facility] [id number] Normal [facility] BASIC METABOLIC PANELon 05- Anion gap [Moles/Vol] 7 mmol/L Normal 3-13 [facility] Comment on above: Performed By: #### L [id number] ####Account Services Associate: HANS PAULSON ([phone])[facility] (SBHLAB)[address] Calcium [Mass/Vol] 8.9 mg/dL Normal 8.8-10.0 [facility] Comment on above: Performed By: #### L [id number] ####Account Services Associate: HANS PAULSON ([phone])[facility] (SBHLAB)[address] Chloride [Moles/Vol] 101 mmol/L Normal 98-107 [facility] Comment on above: Performed By: #### L [id number] ####Account Services Associate: HANS PAULSON ([phone])[facility] (SBHLAB)[address] CO2 [Moles/Vol] 33 mmol/L High 23-31 [facility] Comment on above: Performed By: #### L [id number] ####Account Services Associate: HANS PAULSON ([phone])[facility]ENTERNorma [place] (SBHLAB)[address] Creatinine [Mass/Vol] 0.56 mg/dL Low 0.57-1.11 [facility] Comment on above: Performed By: #### L [id number] ####Account Services Associate: HANS PAULSON ([phone])[facility]A [place] (SBHLAB)[address] GLOMERULAR FILTRATION RATE ML/MIN/1.73 SQ M.PREDICTED >90.0 Normal >60.0 [facility] Comment on above: Result Comment: Calc ulation based on the Chronic Kidney Disease Epidemiology Collaboration (CKD-EPI) equation refit without adjustment for race Performed By: #### L [id number] ####Account Services Associate: HANS PAULSON ([phone])[facility]ENTERNorm[facility] [place] (SBHLAB)[address] Glucose [Mass/Vol] 93 mg/dL Normal 82-115 [facility] Comment on above: Performed By: #### L [id number] ####Account Services Associate: HANS PAULSON ([phone])[facility]ENTERA [facility]ITALN (SBHLAB)[address] Potassium [Moles/Vol] 3.8 mmol/L Normal 3.5-5.1 [facility] Comment on above: Result Comment: [facility] potassium values may be up to 0.5 mmol/L lower than serum values. Performed By: #### L [id number] ####Account Services Associate: HANS PAULSON ([phone])[facility]A [place] (SBHLAB)[address] [place] [address] [place] Sodium [Moles/Vol] 141 mmol/L Normal 136-145 [facility] Comment on above: Performed By: #### L [id number] ####Account Services Associate: HANS PAULSON ([phone])[facility]A [place] (SBHLAB)[address] [place] [address] [place] Urea nitrogen [Mass/Vol] 27 mg/dL High 9-23 [facility] Comment on above: Performed By: #### L [id number] ####Account Services Associate: HANS PAULSON ([phone])[facility] JOSE CARLOSSTEVEN (SBHLAB)[address] [place] [address] Basic metabolic 1998 panelon 08-06-2024 Anion gap [Moles/Vol] 7 mmol/L 3 - 13 mmol/L [facility] Calcium [Mass/Vol] 8.9 mg/dL 8.8 - 10. 0 mg/dL [facility] Chloride [Moles/Vol] 101 mmol/L 98 - 10 7 mmol/L [facility] CO2 [Moles/Vol] 33 mmol/L High 23 - 31 mmol/L [facility] Creatinine [Mass/Vol] 0.56 mg/dL Low 0.57 - 1.11 mg/dL [facility] GFR/1.73 sq M.predicted (S/P/Bld) [Vol rate/Area] - PINF [facility] Comment on above: Calculation based on the Chronic Kidney Disease Epidemiology Collaboration (CKD-EPI) equation refit without adjustment for race Glucose [Mass/Vol] 93 mg/dL 82 - 115 mg/dL [facility] Interpretation and review of laboratory results Abnormal [facility] Potassium [Moles/Vol] 3.8 mmol/L 3.5 - 5.1 mmol/L [facility] Comment on above: Plasma potassium martín ues may be up to 0.5 mmol/L lower than serum values. Sodium [Moles/Vol] 141 mmol/L 136 - 145 mmol/L [facility] Urea nitrogen [Mass/Vol] 27 mg/dL High 9 - 23 mg/d L [facility] CBC W Auto Differential pane l (Bld)Ordered By: Hakeem Cruz on 08-06-2024 Basophils (Bld) [#/Vol] 0.1 10*3/uL 0.0 - 0.2 10*3/uL [facility] Basophils/100 WBC (Bld) 0.6 % 0.0 - 2.0 % [facility] Eosinophils (Bld) [#/Vol] 0.3 10*3/uL 0.0 - 0.5 10*3/uL [facility] Eosinophils/100 WBC (Bld) 3.3 % 0.0 - 6.0 % [facility] Erythrocyte distribution width (RBC) [Ratio] 14 % 11.5 - 15.0 % [facility] Hematocrit (Bld) [Volume fraction] 35.3 % 35.0 - 47.0 % [facility] Hemoglobin (Bld) [Mass/Vol] 10.7 g/dL Low 11.7 - 16.0 g/dL [facility] Immature granulocytes (Bld) [#/Vol] 0 10*3/uL NINF - 0.1 10*3/uL [facility] Immature granulocytes/100 WBC (Bld) 0.4 % 0.0 - 2.0 % [facility] Interpretation and review of laboratory results Abnormal [facility] Lymphocytes (Bld) [#/Vol] 1.4 10*3/uL 1.0 - 4.3 10*3/uL [facility] Lymphocytes/100 WBC (Bld) 18.1 % 15.0 - 45.0 % [facility] MCH (RBC) [Entitic mass] 30.8 pg 26. 0 - 34.0 pg [facility] MCHC (RBC) [Mass/Vol] 30.3 % Low 30.5 - 36.0 % [facility] MCV (RBC) [Entitic vol] 101.7 fL High 77.0 - 99.0 fL [facility] Monocytes (Bld) [#/Vol] 0.8 10*3/uL 0.0 - 0.9 10*3/uL [facility] Monocytes/100 WBC (Bld) 9.6 % 5.0 - 13.0 % [facility] Neutrophils (Bld) [#/Vol] 5.3 10*3/uL 1.8 - 7.5 10*3/uL [facility] Neutrophils/100 WBC (Bld) 68 % 38.0 - 82.0 % [facility] Nucleated RBC/100 WBC (Bld) [Ratio] 0 % [facility] Platelet mean volume (Bld) [Entitic vol] 9.6 fL 9.0 - 12.7 fL [facility] Platelets (Bld) [#/Vol] 166 10*3/uL 140 - 440 10*3/uL [facility] RBC (Bld) [#/Vol] 3.47 10*6/uL Low 3.80 - 5.2 0 10*6/uL [facility] WBC (Bld) [#/Vol] 7.8 10*3/uL 3.6 - 10.7 10*3/uL [facility] CBC WITH AUTO DIFFERENTIALon 08-06-2024 Basophils (Bld) [#/Vol] 0.1 10*3/uL Normal 0.0-0.2 [facility] Comment on above: Performed By: #### L [id number] ####Account Services Associate: HANS PAULSON ([phone])[facility] (SBHLAB)[address] Basophils/100 WBC (Bld) 0.6 % Normal 0.0-2.0 [facility] Comment on above: Performed By: #### L [id number] ####Account Services Associate: HANS PAULSON ([phone])[facility]A [facility] (SBAB)[address] [place] [address] Eosinophils (Bld) [#/Vol] 0.3 10*3/uL Normal 0.0-0.5 [facility] Comment on above: Performed By: #### L [id number] ####Account Services Associate: HANS PAULSON ([phone])[facility]A [facility] (SBHLAB)[address] Eosinophils/100 WBC (Bld) 3.3 % Normal 0.0-6.0 [facility] Comment on above: Performed By: #### L [id number] ####Account Services Associate: HANS PAULSON ([phone])[facility] HOSPITALRaimundo (SBHLAB)[address] Erythrocyte distribution width (RBC) [Ratio] 14.0 % Normal 11.5-15.0 [facility] Comment on above: Performed By: #### L [id number] ####Account Services Associate: HANS PAULSON ([phone])[facility] (SBAB)[address] [place] [address] Hematocrit (Bld) [Volume fraction] 35.3 % Normal 35.0-47.0 [facility] Comment on above: Performed By: #### L [id number] ####Account Services Associate: HANS AGUILARCER ([phone])[facility]ENTERNorma [place] (SBHLAB)[address] Hemoglobin (Bld) [Mass/Vol] 10.7 g/dL Low 11.7-16.0 [facility] Comment on above: Performed By: #### L [id number] ####Account Services Associate: HANS ALCANTARESCOBAR ([phone])[facility]ENTERNorm[facility] (SBHLAB)[address] IMMATURE GRANS % 0.4 % Normal 0.0-2.0 [facility] Comment on above: Performed By: #### L [id number] ####Account Services Associate: HANS ALCANTARESCOBAR ([phone])[facility]ENTERNorma [facility] ([facility])[address] IMMATURE GRANS ABSOLUTE 0.0 10*3/uL Normal <0.1 [facility] Comment on above: Performed By: #### L [id number] ####Account Services Associate: HANS ALCANTARESCOBAR ([phone])[facility]ERNorm[facility] [place] ([facility])[address] Lymphocytes (Bld) [#/Vol] 1.4 10*3/uL Normal 1.0-4.3 [facility] Comment on above: Performed By: #### L [id number] ####Account Services Associate: HNAS PAULSON ([phone])[facility]ENTERNorma [place] (SBAB)[address] [place] [address] [place] Lymphocytes/100 WBC (Bld) 18.1 % Normal 15.0-45.0 [facility] Comment on above: Performed By: #### L [id number] ####Account Services Associate: HANS PAULSON ([phone])[facility]ENTERNorm[facility] (SBAB)[address] MCH (RBC) [Entitic mass] 30.8 pg Normal 26.0-34.0 [facility] Comment on above: Performed By: #### L [id number] ####Account Services Associate: HANS PAULSON ([phone])[facility] [place] (SBHLAB)[address] MCHC 30.3 % Low 30.5-36.0 [facility] Comment on above: Performed By: #### L [id number] ####Account Services Associate: HANS PAULSON ([phone])[facility] (SBHLAB)[address] MCV (RBC) [Entitic vol] 101.7 fL High 77.0-99.0 S [facility] Comment on above: Performed By: #### L [id number] ####Account Services Associate: HANS PAULSON ([phone])[facility] (SBHLAB)[address] Monocytes (Bld) [#/Vol] 0.8 10*3/uL Normal 0.0-0.9 [facility] Comment on above: Performed By: #### L [id number] ####Account Services Associate: HANS PAULSON ([phone])[facility] (SBHLAB)[address] Monocytes/100 WBC (Bld) 9.6 % Normal 5.0-13.0 [facility] Comment on above: Performed By: #### L [id number] ####Account Services Associate: HANS PAULSON ([phone])[facility] (SBHLAB)[address] NEUTROPHILS ABSOLUTE 5.3 10*3/uL Normal 1.8-7.5 [facility] Comment on above: Performed By: #### L [id number] ####Account Services Associate: HANS PAULSON ([phone])[facility] (SBHLAB)[address] Neutrophils/100 WBC (Bld) 68.0 % Normal 38.0-82.0 [facility] Comment on above: Performed By: #### L [id number] ####Account Services Associate: HANS PAULSON ([phone])[facility] (SBHLAB)[address] NRBC 0.0 /100 WBCs Normal 0.0-2.0 [facility] Comment on above: Performed By: #### L [id number] ####Account Services Associate: HANS PAULSON ([phone])[facility] (SBHLAB)[address] Platelet mean volume (Bld) [Entitic vol] 9.6 fL Normal 9.0-12.7 [facility] Comment on above: Performed By: #### L [id number] ####Account Services Associate: HANS PAULSON ([phone])[facility] [place] (SBHLAB)[address] Platelets (Bld) [#/Vol] 166 10*3/uL Normal 140-440 [facility] Comment on above: Performed By: #### L [id number] ####Account Services Associate: HANS PAULSON ([phone])[facility] [place] (SB[facility])[address] [place] [address] RBC (Bld) [#/Vol] 3.47 10*6/uL Low 3.80-5.20 [facility] Comment on above: Performed By: #### L [id number] ####Account Services Associate: HANS PAULSON ([id number])[facility] [place] (SBHLAB)[address] WBC (Bld) [#/Vol] 7.8 10*3/uL Normal 3.6-10.7 [facility] Comment on above: Performed By: #### L [id number] ####Account Services Associate: HANS PAULSON ([phone])[facility] [place] (SBHLAB)[address] Progress Noteon 08-06-2024 Progress Note Normal [facility] Progress Note Normal [facility] Progress Note Normal [facility] Progress Note Normal [facility] Progress Note Normal [facility] Progress Note Normal [facility] 30on 08-05-2024 30 Normal [facility] 30 Normal [facility] BASIC METABOLIC PANELon 07-19 Anion gap [Moles/Vol] 5 mmol/L Normal 3-13 [facility] Comment on above: Performed By: #### L [id number] ####Account Services Associate: HANS PAULSON ([phone])[facility] [place] (SBHLAB)[address] Calcium [Mass/Vol] 9.4 mg/dL Normal 8.8-10.0 [facility] Comment on above: Performed By: #### L [id number] ####Account Services Associate: HANS PAULSON ([phone])[facility] [place] (SBHLAB)[address] Chloride [Moles/Vol] 100 mmol/L Normal 98-107 [facility] Comment on above: Performed By: #### L [id number] ####Account Services Associate: HANS PAULSON ([phone])[facility] [place] (SBHLAB)[address] CO2 [Moles/Vol] 36 mmol/L High 23-31 [facility] Comment on above: Performed By: #### L [id number] ####Account Services Associate: HANS PAULSON ([phone])[facility] ([facility])[address] Creatinine [Mass/Vol] 0.57 mg/dL Normal 0.57-1.11 [facility] Comment on above: Performed By: #### L [id number] ####Account Services Associate: HANS PAULSON ([phone])[facility] (SBHLAB)[address] GLOMERULAR FILTRATION RATE ML/MIN/1.73 SQ M.PREDICTED >90.0 Normal >60.0 [facility] Comment on above: Result Comment: Calc ulation based on the Chronic Kidney Disease Epidemiology Collaboration (CKD-EPI) equation refit without adjustment for race Performed By: #### L [id number] ####Account Services Associate: HANS PAULSON ([phone])[facility] (SBHLAB)[address] Glucose [Mass/Vol] 102 mg/dL Normal 82-115 [facility] Comment on above: Performed By: #### L [id number] ####Account Services Associate: HANS PAULSON ([phone])[facility] (SBHLAB)[address] Potassium [Moles/Vol] 4.3 mmol/L Normal 3.5-5.1 [facility] Comment on above: Result Comment: [facility] potassium values may be up to 0.5 mmol/L lower than serum values. Performed By: #### L [id number] ####Account Services Associate: HANS PAULSON ([phone])[facility] (SBHLAB)[address] Sodium [Moles/Vol] 141 mmol/L Normal 136-145 [facility] Comment on above: Performed By: #### L [id number] ####Account Services Associate: HANS PAULSON ([phone])[facility] (HLAB)[address] Urea nitrogen [Mass/Vol] 25 mg/dL High 9-23 [facility] Comment on above: Performed By: #### L [id number] ####Account Services Associate: HANS PAULSON ([phone])[facility] (SBHLAB)[address] Bacteria identified Aer cx N om (Lower resp)Ordered By: Joaquina Andrade on 08-05-2024 Gram Stain Result Few Epithelial cells per low power field Abnormal [facility] Gram Stain Result Many Polymorphonucle ar leukocytes per low power field Abnormal [facility] Gram Stain Result Positive [facility] Stain Result Negative [facility] Interpretation and review of laboratory results Abnormal [facility] Basic metabolic 1998 panelon 08-05-2024 Anion gap [Moles/Vol] 5 mmol/L 3 - 13 mmol/L [facility] Calcium [Mass/Vol] 9.4 mg/dL 8.8 - 10. 0 mg/dL [facility] Chloride [Moles/Vol] 100 mmol/L 98 - 10 7 mmol/L [facility] CO2 [Moles/Vol] 36 mmol/L High 23 - 31 mmol/L [facility] Creatinine [Mass/Vol] 0.57 mg/dL 0.57 - 1.11 mg/dL [facility] GFR/1.73 sq M.predicted (S/P/Bld) [Vol rate/Area] - PINF [facility] Comment on above: Calculation based on the Chronic Kidney Disease Epidemiology Collaboration (CKD-EPI) equation refit without adjustment for race Glucose [Mass/Vol] 102 mg/dL 82 - 115 mg/dL [facility] Interpretation and review of laboratory results Abnormal [facility] Potassium [Moles/Vol] 4.3 mmol/L 3.5 - 5.1 mmol/L [facility] Comment on above: Plasma potassium martín ues may be up to 0.5 mmol/L lower than serum values. Sodium [Moles/Vol] 141 mmol/L 136 - 145 mmol/L [facility] Urea nitrogen [Mass/Vol] 25 mg/dL High 9 - 23 mg/d L [facility] CBC W Auto Differential pane l (Bld)Ordered By: Yair Sanchez on 08-05-2024 Basophils (Bld) [#/Vol] 0 10*3/uL 0.0 - 0.2 10*3/uL [facility] Basophils/100 WBC (Bld) 0.3 % 0.0 - 2.0 % [facility] Eosinophils (Bld) [#/Vol] 0.1 10*3/uL 0.0 - 0.5 10*3/uL [facility] Eosinophils/100 WBC (Bld) 0.6 % 0.0 - 6.0 % [facility] Erythrocyte distribution width (RBC) [Ratio] 13.9 % 11.5 - 15.0 % [facility] Hematocrit (Bld) [Volume fraction] 38.5 % 35.0 - 47.0 % [facility] Hemoglobin (Bld) [Mass/Vol] 12 g/dL 11.7 - 16.0 g/dL [facility] Immature granulocytes (Bld) [#/Vol] 0 10*3/uL NINF - 0.1 10*3/uL [facility] [employer] Immature granulocytes/100 WBC (Bld) 0.2 % 0.0 - 2.0 % [facility] Interpretation and review of laboratory results Abnormal [facility] Lymphocytes (Bld) [#/Vol] 1.5 10*3/uL 1.0 - 4.3 10*3/uL [facility] Lymphocytes/100 WBC (Bld) 14.9 % Low 15.0 - 45.0 % [facility] [employer] MCH (RBC) [Entitic mass] 31.6 pg 26. 0 - 34.0 pg [facility] MCHC (RBC) [Mass/Vol] 31.2 % 30.5 - 36.0 % [facility] MCV (RBC) [Entitic vol] 101.3 fL High 77.0 - 99.0 fL [facility] Monocytes (Bld) [#/Vol] 1.2 10*3/uL High 0.0 - 0.9 10*3/uL [facility] Monocytes/100 WBC (Bld) 12 % 5.0 - 13.0 % [facility] [employer] Neutrophils (Bld) [#/Vol] 7.1 10*3/uL 1.8 - 7.5 10*3/uL [facility] [employer] Neutrophils/100 WBC (Bld) 72 % 38.0 - 82.0 % [facility] [employer] Nucleated RBC/100 WBC (Bld) [Ratio] 0 % [facility] [employer] Platelet mean volume (Bld) [Entitic vol] 9.8 fL 9.0 - 12.7 fL [facility] [employer] Platelets (Bld) [#/Vol] 221 10*3/uL 140 - 440 10*3/uL [facility] RBC (Bld) [#/Vol] 3.8 10*6/uL 3.80 - 5.2 0 10*6/uL [facility] WBC (Bld) [#/Vol] 9.9 10*3/uL 3.6 - 10.7 10*3/uL [facility] CBC WITH AUTO DIFFERENTIALon 08-05-2024 Basophils (Bld) [#/Vol] 0.0 10*3/uL Normal 0.0-0.2 [facility] Comment on above: Performed By: #### L [id number] ####Account Services Associate: HANS ALCANTARESCOBAR ([phone])[facility] [place] (SBHLAB)[address] Basophils/100 WBC (Bld) 0.3 % Normal 0.0-2.0 [facility] Comment on above: Performed By: #### L [id number] ####Account Services Associate: HANS ALCANTARESCOBAR ([phone])[facility] [place] (SBHLAB)[address] Eosinophils (Bld) [#/Vol] 0.1 10*3/uL Normal 0.0-0.5 [facility] Comment on above: Performed By: #### L [id number] ####Account Services Associate: HANS WALDROPIVELISSE ([phone])[facility] [place] (SBHLAB)[address] Eosinophils/100 WBC (Bld) 0.6 % Normal 0.0-6.0 [facility] Comment on above: Performed By: #### L [id number] ####Account Services Associate: HANS ALCANTARESCOBAR ([phone])[facility] [place] (SBHLAB)[address] Erythrocyte distribution width (RBC) [Ratio] 13.9 % Normal 11.5-15.0 [facility] Comment on above: Performed By: #### L [id number] ####Account Services Associate: HANS PAULSON ([phone])[facility] [place] (SBHLAB)[address] [place] [address] Hematocrit (Bld) [Volume fraction] 38.5 % Normal 35.0-47.0 [facility] Comment on above: Performed By: #### L [id number] ####Account Services Associate: HANS PAULSON ([phone])[facility] [place] (SBHLAB)[address] Hemoglobin (Bld) [Mass/Vol] 12.0 g/dL Normal 11.7-16.0 [facility] Comment on above: Performed By: #### L [id number] ####Account Services Associate: HANS PAULSON ([phone])[facility] (SB[facility]AB)[address] IMMATURE GRANS % 0.2 % Normal 0.0-2.0 [facility] Comment on above: Performed By: #### L [id number] ####Account Services Associate: HANS PAULSON ([phone])[facility] (SBHLAB)[address] IMMATURE GRANS ABSOLUTE 0.0 10*3/uL Normal <0.1 [facility] Comment on above: Performed By: #### L [id number] ####Account Services Associate: HANS PAULSON ([phone])[facility] (SBAB)[address] Lymphocytes (Bld) [#/Vol] 1.5 10*3/uL Normal 1.0-4.3 [facility] Comment on above: Performed By: #### L [id number] ####Account Services Associate: HANS PAULSON ([phone])[facility] (SBHLAB)[address] Lymphocytes/100 WBC (Bld) 14.9 % Low 15.0-45.0 [facility] Comment on above: Performed By: #### L [id number] ####Account Services Associate: HANS PAULSON ([phone])[facility] (SBHLAB)[address] MCH (RBC) [Entitic mass] 31.6 pg Normal 26.0-34.0 [facility] Comment on above: Performed By: #### L [id number] ####Account Services Associate: HANS PAULSON ([phone])[facility] (SBHLAB)[address] MCHC 31.2 % Normal 30.5-36.0 [facility] Comment on above: Performed By: #### L [id number] ####Account Services Associate: HANS PAULSON ([phone])[facility] [place] (SBHLAB)[address] MCV (RBC) [Entitic vol] 101.3 fL High 77.0-99.0 [facility] Comment on above: Performed By: #### L [id number] ####Account Services Associate: HANS PAULSON ([phone])[facility] [place] (SBHLAB)155 [place] [address] [place] Monocytes (Bld) [#/Vol] 1.2 10*3/uL High 0.0-0.9 [facility] Comment on above: Performed By: #### L [id number] ####Account Services Associate: HANS PAULSON ([phone])[facility] [place] (SBHLAB)[address] Monocytes/100 WBC (Bld) 12.0 % Normal 5.0-13.0 [facility] Comment on above: Performed By: #### L [id number] ####Account Services Associate: HANS PAULSON ([phone])[facility] [place] (SBHLAB)155 [place] [address] [place] NEUTROPHILS ABSOLUTE 7.1 10*3/uL Normal 1.8-7.5 [facility] Comment on above: Performed By: #### L [id number] ####Account Services Associate: HANS PAULSON ([phone])[facility] [place] (SBHLAB)155 [place] [address] [place] Neutrophils/100 WBC (Bld) 72.0 % Normal 38.0-82.0 [facility] Comment on above: Performed By: #### L [id number] ####Account Services Associate: HANS PAULSON ([phone])[facility] [place] (SBHLAB)[address] [place] [address] [place] NRBC 0.0 /100 WBCs Normal 0.0-2.0 [facility] Comment on above: Performed By: #### L [id number] ####Account Services Associate: HANS PAULSON ([phone])[facility] [place] (SBHLAB)[address] Platelet mean volume (Bld) [Entitic vol] 9.8 fL Normal 9.0-12.7 [facility] Comment on above: Performed By: #### L [id number] ####Account Services Associate: HANS PAULSON ([phone])[facility] [place] (SBHLAB)[address] Platelets (Bld) [#/Vol] 221 10*3/uL Normal 140-440 [facility] Comment on above: Performed By: #### L [id number] ####Account Services Associate: HANS PAULSON ([phone])[facility] [place] (SBHLAB)[address] RBC (Bld) [#/Vol] 3.80 10*6/uL Normal 3.80-5.20 [facility] Comment on above: Performed By: #### L [id number] ####Account Services Associate: HANS PAULSON ([phone])[facility] [place] (SBHLAB)[address] [place] [address] WBC (Bld) [#/Vol] 9.9 10*3/uL Normal 3.6-10.7 [facility] Comment on above: Performed By: #### L [id number] ####Account Services Associate: HANS PAULSON ([phone])[facility] [place] (SBHLAB)[address] [place] [address] Laboratory - Microbiology an d Antimicrobial susceptibilityOrdered By: Joaquina Andrade on 08-05-2024 Bacteria identified Aer cx Nom (Lower resp) Many respiratory linus present. [facility] Bacteria identified Aer cx Nom (Lower resp) Many Pseudomonas aeruginosa Abnormal [facility] Progress Noteon 08-05-2024 Progress Note [facility] Progress Note Normal [facility] Progress Note Normal [facility] 30on 08-04-2024 30 Normal [facility] 30 Normal [facility] [id number] 08-04-2024 [id number] Normal [facility] [id number] Normal [facility] BASIC METABOLIC PANELon 07-19 Anion gap [Moles/Vol] 6 mmol/L Normal 3-13 [facility] Comment on above: Performed By: #### L [id number] ####Account Services Associate: HANS PAULSON ([phone])[facility] [place] (SB[facility])[address] Calcium [Mass/Vol] 8.4 mg/dL Low 8.8-10.0 [facility] Comment on above: Performed By: #### L [id number] ####Account Services Associate: HANS PAULSON ([phone])[facility] [place] (SBHLAB)[address] Chloride [Moles/Vol] 104 mmol/L Normal 98-107 [facility] Comment on above: Performed By: #### L [id number] ####Account Services Associate: HANS PAULSON ([phone])[facility] [place] (SB[facility])[address] CO2 [Moles/Vol] 32 mmol/L High 23-31 [facility] Comment on above: Performed By: #### L [id number] ####Account Services Associate: HANS PAULSON ([phone])[facility] [place] (SB[facility])[address] Creatinine [Mass/Vol] 0.55 mg/dL Low 0.57-1.11 [facility] Comment on above: Performed By: #### L [id number] ####Account Services Associate: HANS PAULSON ([phone])[facility] [place] (SB[facility])[address] GLOMERULAR FILTRATION RATE ML/MIN/1.73 SQ M.PREDICTED >90.0 Normal >60.0 [facility] Comment on above: Result Comment: Calc ulation based on the Chronic Kidney Disease Epidemiology Collaboration (CKD-EPI) equation refit without adjustment for race Performed By: #### L [id number] ####Account Services Associate: HANS PAULSON ([phone])[facility] (SBHLAB)[address] Glucose [Mass/Vol] 111 mg/dL Normal 82-115 [facility] Comment on above: Performed By: #### L [id number] ####Account Services Associate: HANS PAULSON ([phone])[facility] (SBHLAB)[address] Potassium [Moles/Vol] 4.2 mmol/L Normal 3.5-5.1 [facility] Comment on above: Result Comment: [facility] potassium values may be up to 0.5 mmol/L lower than serum values. Performed By: #### L [id number] ####Account Services Associate: HANS PAULSON ([phone])[facility] (SBHLAB)[address] [place] [address] Sodium [Moles/Vol] 142 mmol/L Normal 136-145 [facility] Comment on above: Performed By: #### L [id number] ####Account Services Associate: HANS PAULSON ([phone])[facility] (SBHLAB)[address] Urea nitrogen [Mass/Vol] 26 mg/dL High 9-23 [facility] Comment on above: Performed By: #### L [id number] ####Account Services Associate: HANS PAULSON ([phone])[facility] (SBHLAB)[address] [place] [address] Basic metabolic 1998 panelon 08-04-2024 Anion gap [Moles/Vol] 6 mmol/L 3 - 13 mmol/L [facility] Calcium [Mass/Vol] 8.4 mg/dL Low 8.8 - 10. 0 mg/dL [facility] Chloride [Moles/Vol] 104 mmol/L 98 - 10 7 mmol/L [facility] CO2 [Moles/Vol] 32 mmol/L High 23 - 31 mmol/L [facility] Creatinine [Mass/Vol] 0.55 mg/dL Low 0.57 - 1.11 mg/dL [facility] GFR/1.73 sq M.predicted (S/P/Bld) [Vol rate/Area] - PINF [facility] Comment on above: Calculation based on the Chronic Kidney Disease Epidemiology Collaboration (CKD-EPI) equation refit without adjustment for race Glucose [Mass/Vol] 111 mg/dL 82 - 115 mg/dL [facility] Interpretation and review of laboratory results Abnormal [facility] [employer] Potassium [Moles/Vol] 4.2 mmol/L 3.5 - 5.1 mmol/L [facility] Comment on above: Plasma potassium martín ues may be up to 0.5 mmol/L lower than serum values. Sodium [Moles/Vol] 142 mmol/L 136 - 145 mmol/L [facility] [employer] Urea nitrogen [Mass/Vol] 26 mg/dL High 9 - 23 mg/d L [facility] [employer] CBC W Auto Differential pane l (Bld)on 08-04-2024 Basophils (Bld) [#/Vol] 0 10*3/uL 0.0 - 0.2 10*3/uL [facility] [employer] Basophils/100 WBC (Bld) 0.2 % 0.0 - 2.0 % [facility] [employer] Eosinophils (Bld) [#/Vol] 0 10*3/uL 0.0 - 0.5 10*3/uL [facility] [employer] Eosinophils/100 WBC (Bld) 0.4 % 0.0 - 6.0 % [facility] [employer] Erythrocyte distribution width (RBC) [Ratio] 13.8 % 11.5 - 15.0 % [facility] [employer] Hematocrit (Bld) [Volume fraction] 32.5 % Low 35.0 - 47.0 % [facility] [employer] Hemoglobin (Bld) [Mass/Vol] 10.2 g/dL Low 11.7 - 16.0 g/dL [facility] [employer] Immature granulocytes (Bld) [#/Vol] 0 10*3/uL NINF - 0.1 10*3/uL [facility] [employer] Immature granulocytes/100 WBC (Bld) 0.4 % 0.0 - 2.0 % [facility] Interpretation and review of laboratory results Abnormal [facility] [employer] Lymphocytes (Bld) [#/Vol] 1 10*3/uL 1.0 - 4.3 10*3/uL [facility] [employer] Lymphocytes/100 WBC (Bld) 11.8 % Low 15.0 - 45.0 % [facility] MCH (RBC) [Entitic mass] 31.6 pg 26. 0 - 34.0 pg [facility] MCHC (RBC) [Mass/Vol] 31.4 % 30.5 - 36.0 % [facility] MCV (RBC) [Entitic vol] 100.6 fL High 77.0 - 99.0 fL [facility] Monocytes (Bld) [#/Vol] 1 10*3/uL High 0.0 - 0.9 10*3/uL [facility] Monocytes/100 WBC (Bld) 11.6 % 5.0 - 13.0 % [facility] Neutrophils (Bld) [#/Vol] 6.2 10*3/uL 1.8 - 7.5 10*3/uL [facility] Neutrophils/100 WBC (Bld) 75.6 % 38.0 - 82.0 % [facility] Nucleated RBC/100 WBC (Bld) [Ratio] 0 % [facility] Platelet mean volume (Bld) [Entitic vol] 9.6 fL 9.0 - 12.7 fL [facility] Platelets (Bld) [#/Vol] 164 10*3/uL 140 - 440 10*3/uL [facility] RBC (Bld) [#/Vol] 3.23 10*6/uL Low 3.80 - 5.2 0 10*6/uL [facility] WBC (Bld) [#/Vol] 8.2 10*3/uL 3.6 - 10.7 10*3/uL [facility] CBC WITH AUTO DIFFERENTIALon 08-04-2024 Basophils (Bld) [#/Vol] 0.0 10*3/uL Normal 0.0-0.2 [facility] Comment on above: Performed By: #### L [id number] ####Account Services Associate: HANS PAULSON ([phone])[facility] (SB[facility])[address] [place] [address] [facility] Basophils/100 WBC (Bld) 0.2 % Normal 0.0-2.0 [facility] Comment on above: Performed By: #### L [id number] ####Account Services Associate: HANS PAULSON ([phone])[facility] (SBHLAB)[address] Eosinophils (Bld) [#/Vol] 0.0 10*3/uL Normal 0.0-0.5 [facility] Comment on above: Performed By: #### L [id number] ####Account Services Associate: HANS PAULSON ([phone])[facility] (SBHLAB)[address] Eosinophils/100 WBC (Bld) 0.4 % Normal 0.0-6.0 [facility] Comment on above: Performed By: #### L [id number] ####Account Services Associate: HANS PAULSON ([phone])[facility] (SBAB)[address] [place] [address] Erythrocyte distribution width (RBC) [Ratio] 13.8 % Normal 11.5-15.0 [facility] Comment on above: Performed By: #### L [id number] ####Account Services Associate: HANS PAULSON ([phone])[facility] (SBHLAB)[address] [place] [address] Hematocrit (Bld) [Volume fraction] 32.5 % Low 35.0-47.0 [facility] Comment on above: Performed By: #### L [id number] ####Account Services Associate: HANS PAULSON ([phone])[facility] (SBHL[facility])[address] [place] [address] Hemoglobin (Bld) [Mass/Vol] 10.2 g/dL Low 11.7-16.0 [facility] Comment on above: Performed By: #### L [id number] ####Account Services Associate: HANS PAULSON ([phone])[facility] [place] (SBHLAB)[address] IMMATURE GRANS % 0.4 % Normal 0.0-2.0 [facility] Comment on above: Performed By: #### L [id number] ####Account Services Associate: HANS PAULSON ([phone])[facility] (SB[facility])[address] IMMATURE GRANS ABSOLUTE 0.0 10*3/uL Normal <0.1 [facility] Comment on above: Performed By: #### L [id number] ####Account Services Associate: HANS PAULSON ([phone])[facility] [place] (SBHLAB)[address] Lymphocytes (Bld) [#/Vol] 1.0 10*3/uL Normal 1.0-4.3 [facility] Comment on above: Performed By: #### L [id number] ####Account Services Associate: HANS PAULSON ([phone])[facility] (SBHLAB)[address] Lymphocytes/100 WBC (Bld) 11.8 % Low 15.0-45.0 [facility] Comment on above: Performed By: #### L [id number] ####Account Services Associate: HANS PAULSON ([phone])[facility] (SBHLAB)[address] MCH (RBC) [Entitic mass] 31.6 pg Normal 26.0-34.0 [facility] Comment on above: Performed By: #### L [id number] ####Account Services Associate: HANS PAULSON ([phone])[facility] (SBHLAB)[address] [place] [address] MCHC 31.4 % Normal 30.5-36.0 [facility] Comment on above: Performed By: #### L [id number] ####Account Services Associate: HANS PAULSON ([phone])[facility] (SBHLAB)[address] MCV (RBC) [Entitic vol] 100.6 fL High 77.0-99.0 [facility] [facility] Comment on above: Performed By: #### L [id number] ####Account Services Associate: HANS PAULSON ([phone])[facility] CENTERNorma [facility] (SBHLAB)[address] Monocytes (Bld) [#/Vol] 1.0 10*3/uL High 0.0-0.9 [facility] Comment on above: Performed By: #### L [id number] ####Account Services Associate: HANS PAULSON ([phone])[facility] [place] (SBHLAB)[address] Monocytes/100 WBC (Bld) 11.6 % Normal 5.0-13.0 [facility] Comment on above: Performed By: #### L [id number] ####Account Services Associate: HANS PAULSON ([phone])[facility]A [place] (SBHLAB)[address] NEUTROPHILS ABSOLUTE 6.2 10*3/uL Normal 1.8-7.5 [facility] Comment on above: Performed By: #### L [id number] ####Account Services Associate: HANS PAULSON ([phone])[facility] [place] (SBHLAB)[address] Neutrophils/100 WBC (Bld) 75.6 % Normal 38.0-82.0 [facility] Comment on above: Performed By: #### L [id number] ####Account Services Associate: HANS PAULSON ([phone])[facility] (SBHLAB)[address] NRBC 0.0 /100 WBCs Normal 0.0-2.0 [facility] Comment on above: Performed By: #### L [id number] ####Account Services Associate: HANS PAULSON ([phone])[facility] [place] (SBHLAB)[address] Platelet mean volume (Bld) [Entitic vol] 9.6 fL Normal 9.0-12.7 [facility] Comment on above: Performed By: #### L [id number] ####Account Services Associate: HANS PAULSON ([phone])[facility] [place] (SBHLAB)[address] Platelets (Bld) [#/Vol] 164 10*3/uL Normal 140-440 [facility] Comment on above: Performed By: #### L [id number] ####Account Services Associate: HANS PAULSON ([phone])[facility] (SBHLAB)[address] RBC (Bld) [#/Vol] 3.23 10*6/uL Low 3.80-5.20 [facility] Comment on above: Performed By: #### L [id number] ####Account Services Associate: HANS PAULSON ([phone])[facility] (SBHLAB)[address] WBC (Bld) [#/Vol] 8.2 10*3/uL Normal 3.6-10.7 [facility] Comment on above: Performed By: #### L [id number] ####Account Services Associate: HANS PAULSON ([phone])[facility] (SBHLAB)[address] [place] [address] Progress Noteon 08-04-2024 Progress Note Normal [facility] Progress Note Normal [facility] Progress Note Normal [facility] Progress Note Nutrition note -received consult for poor jeri <12 . Jeri is 21 -already being followed by RD. [facility] 30on 08-03-2024 30 [facility] 30 [facility] [id number] 08-03-2024 [id number] Tasked weekend field nurse case manager to follow for pending auth to [facility]. [phone] will need to be completed at the time of discharge. membership manager to follow and assist as needed. [facility] [phone] Sent updated notes t o [facility] via [employer] per [facility] request. Await review and response regarding ability to accept. TCC notified. Normal [facility] [id number] Normal [facility] Progress Noteon 08-03-2024 Progress Note Normal [...] h System [facility] 30on 08-02-2024 30 Normal [facility] 30 Normal [facility] [id number] 08-02-2024 [id number] Normal [facility] [id number] Normal [facility] Progress Noteon [...] 08-01-2024 30 Normal [facility] [id number] 08-01-2024 [id number] Normal [facility] Consulton 08-01-2024 Consult [facility] PNEUMONIA PCR PANELon 2024 PNEUMONIA PCR PANEL [facility] Comment on above: Performed By: #### L [id number], [id number] ####Account Services Associate: AMELIE ELIZABETH ([phone])[address] Progress Noteon 08-01-2024 Progress Note Normal [facility] Progress Note Normal [facility] Progress Note Normal [facility] Progress Note Normal [facility] Progress Note Normal [facility] Progress Note Normal [facility] RESPIRATORY CULTURE AND STAI Non 08-01-2024 RESPIRATORY CULTURE AND STAIN Normal [facility] Comment on above: Performed By: #### L [id number], [id number] ####Account Services Associate: AMELIE ELIZABETH ([phone])[facility] (SACLAB)[address] [place] [address] Respiratory pathogens DNA an d RNA panel MILANA+non-probe (Lower resp)Ordered By: Sheriederrick Brown on 08-01-2024 Acinetobacter baumannii complex Not detected Not Detected [facility] Adenovirus Not detected Not Detected [facility] th Chlamydia pneumoniae Not detected Not Detected [facility] Enterobacter cloacae complex Not detected Not Detected [facility] Escherichia coli Not detected Not Detected [facility] FLUAV RNA MILANA+non-probe Ql (Lower resp) Not detected Not Detected [facility] FLUBV RNA MILANA+non-probe Ql (Lower resp) Not detected Not Detected [facility] Haemophilus influenzae Not detected Not Detecte d [facility] Human Metapneumovirus Not detected Not Detected [facility] Human Rhinovirus/Enterovirus Not detected Not Detected [facility] Interpretation and review of laboratory results Abnormal [facility] Klebsiella (Enterobacter) aerogenes Not detected Not Detected [facility] Klebsiella oxytoca Not detected Not Detected [facility] Klebsiella pneumoniae Not detected Not Detected [facility] Legionella pneumophila Not detected Not Detecte d [facility] Moraxella catarrhalis Detected Abnormal Not Detected [facility] Mycoplasma pneumoniae Not detected Not Detected [facility] Parainfluenza virus Not detected Not Detected [facility] Proteus spp Not detected Not Detected [facility] Pseudomonas aeruginosa Detected Abnormal Not Detected [facility] RSV RNA MILANA+probe Ql (Resp) Not detected Not Detected [facility] S. agalactiae Org specific cx Ql (Vag fld) Detected Abnormal Not Detected [facility] SARS-CoV-2 (COVID-19) RNA MILANA+non-probe Ql (Nph) Not detected Not Detected [facility] SARS-CoV-2 (COVID-19) RNA MILANA+probe Ql (Unsp spec) Methodology: Multiplex PCR This panel does not test for SARS-CoV-2 (Covid-19). The following antimicrobial resistance gene is reported if the appropriate organism is detected: mecA. The following antimicrobial resistance genes are reported if detected and the appropriate organisms are detected: CTX-M, IMP, KPC, NDM, OXA-48-like, and VIM. [facility] Serratia marcescens Not detected Not Detected S [facility] Staphylococcus aureus Not detected Not Detected [facility] Streptococcus pneumoniae Not detected Not Detec tommy [facility] Streptococcus pyogenes Not detected Not Detecte d [facility] [id number] 07-31-2024 [id number] Art Critic following case for Discharge Needs. Normal [facility] [id number] 07-31-2024 [id number] Normal [facility] [id number] Normal [facility] CRP [Mass/Vol]on 07-31-2024 Interpretation and review of laboratory results Normal [facility] CT Abdomen and Pelvis WO and W [...] MD Electronically Signed Date/Time: 07/31/2024 4:14 PM [facility] Patient Name: GONZALO DELUCA : 1955 Exam Date/Time: 07/31/2024 15:25 Procedure: CT CHEST [...] 07/31/2024 [facility] Name: [facility] 1955 [id number] Date/Time: 07/31/2024 15:25 Procedure: CT CHEST [...] Date/Time: 07/31/2024 4:14 PM EDT [facility] Radiology Study observation (narrative) [facility] CT Abdomen and Pelvis WO and W contrast IVOrdered By: Brando Tejada on 07-31-2024 [facility] Work Phone: CT CHEST ABDOMEN PELVIS W CO NTRASTon 07-31-2024 CT CHEST ABDOMEN PELVIS W CONTRAST Normal [facility] Consulton 07-31-2024 Consult Normal [facility] Consult Normal [facility] Consult Normal [facility] Consult Normal [facility] Laboratory - Chemistry and C hemistry - challengeon 07-31-2024 TSH Qn 0.28 m[IU]/L Low [facility] Procalcitonin [Mass/Vol] 0.03 ng/mL NICHOLAS F - 0.07 ng/mL [facility] CRP [Mass/Vol] 1.4 mg/L [facility] - 5.0 mg/L [facility] Procalcitonin [Mass/Vol]on 0 07-31-2024 Interpretation and review of laboratory results Normal [facility] PCT <0.50 = Low risk of severe sepsis and/or septic shock. PCT >2.00 = High risk of severe sepsis and/or septic shock. [facility] Progress Noteon 07-31-2024 Progress Note Normal [facility] Progress Note Normal [facility] Progress Note Normal [facility] Progress Note Normal [facility] Progress Note Normal [facility] Progress Note Normal [facility] RESPIRATORY PATHOGENS PANEL BY PCRon 07-31-2024 RESPIRATORY PATHOGENS PANEL BY PCR Normal [facility] Comment on above: Performed By: #### L [id number] ####Account Services Associate: AMELIE ELIZABETH ([phone])[facility] (SAC[address] Respiratory pathogens DNA an d RNA panel MILANA+non-probe (Nph)on 07-31-2024 Adenovirus Not detected Not Detected [facility] B. pertussis DNA MILANA+probe Ql (Unsp spec) Not detected Not Detected [facility] ealt Bordetella parapertussis Not detected Not Detec tommy [facility] Chlamydia pneumoniae Not detected Not Detected [facility] Coronavirus 229E Not detected Not Detected [facility] Coronavirus HKU1 Not detected Not Detected [facility] Coronavirus NL63 Not detected Not Detected [facility] Coronavirus OC43 Not detected Not Detected [facility] FLUAV RNA MILANA+non-probe Ql (Nph) Not detected Not Detected [facility] FLUBV RNA MILANA+non-probe Ql (Nph) Not detected Not Detected [facility] Human Metapneumovirus Not detected Not Detected [facility] Human Rhinovirus/Enterovirus Not detected Not Detected [facility] Interpretation and review of laboratory results Normal [facility] Mycoplasma pneumoniae Not detected Not Detected [facility] Parainfluenza 1 Not detected Not Detected [facility] Parainfluenza 2 Not detected Not Detected [facility] Parainfluenza 3 Not detected Not Detected [facility] Parainfluenza 4 Not detected Not Detected [facility] Respiratory Syncytial Virus Not detected Not Detected [facility] SARS-CoV-2 (COVID-19) RNA MILANA+non-probe Ql (Nph) Not detected Not Detected [facility] Methodology: Multipl ex PCR [facility] TSH Qnon 07-31-2024 Interpretation and review of laboratory results Abnormal [facility] BASIC METABOLIC PANELon 07-19 Anion gap [Moles/Vol] 4 mmol/L Normal - [facility] Comment on above: Performed By: #### L AB99, [id number], LAB69, LAB15, APC299, LAB67, UXZ456, LAB20, [id number] ####Account Services Associate: HANS PAULSON ([phone])[facility]ENTERNorma [facility] (SBHLAB)[address] Calcium [Mass/Vol] 8.8 mg/dL Normal 8.8-10.0 [facility] Comment on above: Performed By: #### L AB99, [id number], LAB69, LAB15, SHI538, LAB67, JDJ328, LAB20, [id number] ####Account Services Associate: HANS PAULSON ([phone])[facility] (SBHLAB)[address] Chloride [Moles/Vol] 103 mmol/L Normal 98-107 [facility] Comment on above: Performed By: #### L AB99, EUC600, LAB69, LAB15, GKN849, LAB67, HOB886, LAB20, [id number] ####Account Services Associate: HANS PAULSON ([phone])[facility] (SBHLAB)[address] CO2 [Moles/Vol] 37 mmol/L High 23-31 [facility] Comment on above: Performed By: #### L AB99, AAJ101, LAB69, LAB15, BTE157, LAB67, QDP545, LAB20, [id number] ####Account Services Associate: HANS PAULSON ([phone])[facility] (SBHLAB)[address] Creatinine [Mass/Vol] 0.63 mg/dL Normal 0.57-1.11 [facility] Comment on above: Performed By: #### L AB99, QOU706, LAB69, LAB15, ZBW274, LAB67, SQX369, LAB20, [id number] ####Account Services Associate: HANS PAULSON ([phone])[facility] (SBHLAB)[address] GLOMERULAR FILTRATION RATE ML/MIN/1.73 SQ M.PREDICTED >90.0 Normal >60.0 [facility] Comment on above: Result Comment: Calc ulation based on the Chronic Kidney Disease Epidemiology Collaboration (CKD-EPI) equation refit without adjustment for race Performed By: #### L AB99, [id number], LAB69, LAB15, OIZ446, LAB67, OAL725, LAB20, [id number] ####Account Services Associate: HANS PAULSON ([phone])[facility] ([facility])[address] Glucose [Mass/Vol] 80 mg/dL Low 82-115 [facility] Comment on above: Performed By: #### L AB99, [id number], LAB69, LAB15, KIP034, LAB67, EVE254, LAB20, [id number] ####Account Services Associate: HANS PAULSON ([phone])[facility] ([facility])[address] [place] [address] Potassium [Moles/Vol] 5.0 mmol/L Normal 3.5-5.1 [facility] Comment on above: Result Comment: [facility] potassium values may be up to 0.5 mmol/L lower than serum values. Performed By: #### L AB99, [id number], LAB69, LAB15, QPG804, LAB67, VVB142, LAB20, [id number] ####Account Services Associate: HANS PAULSON ([phone])[facility] ([facility])[address] [place] [address] Sodium [Moles/Vol] 144 mmol/L Normal 136-145 [facility] Comment on above: Performed By: #### L AB99, RFD637, LAB69, LAB15, LXZ527, LAB67, MGG683, LAB20, [id number] ####Account Services Associate: HANS PAULSON ([phone])[facility] ([facility])[address] [place] [address] [place] Urea nitrogen [Mass/Vol] 16 mg/dL Normal 9-23 [facility] Comment on above: Performed By: #### L AB99, WBV821, LAB69, LAB15, OWM876, LAB67, OXT966, LAB20, [id number] ####Account Services Associate: HANS PAULSON ([phone])[facility]orma [place] (SBHLAB)[address] Basic metabolic 1998 panelon 07-30-2024 Anion gap [Moles/Vol] 4 mmol/L 3 - 13 mmol/L [facility] Calcium [Mass/Vol] 8.8 mg/dL 8.8 - 10. 0 mg/dL [facility] Chloride [Moles/Vol] 103 mmol/L 98 - 10 7 mmol/L [facility] CO2 [Moles/Vol] 37 mmol/L High 23 - 31 mmol/L [facility] Creatinine [Mass/Vol] 0.63 mg/dL 0.57 - 1.11 mg/dL [facility] GFR/1.73 sq M.predicted (S/P/Bld) [Vol rate/Area] - PINF [facility] Comment on above: Calculation based on the Chronic Kidney Disease Epidemiology Collaboration (CKD-EPI) equation refit without adjustment for race Glucose [Mass/Vol] 80 mg/dL Low 82 - 115 mg/dL [facility] Potassium [Moles/Vol] 5 mmol/L 3.5 - 5.1 mmol/L [facility] Comment on above: Plasma potassium martín ues may be up to 0.5 mmol/L lower than serum values. Sodium [Moles/Vol] 144 mmol/L 136 - 145 mmol/L [facility] Urea nitrogen [Mass/Vol] 16 mg/dL 9 - 23 mg/d L [facility] C-REACTIVE PROTEINon 025 CRP [Mass/Vol] 1.4 mg/L Normal <5.0 [facility] Comment on above: Performed By: #### L AB99, ODI771, LAB69, LAB15, LER973, LAB67, WVF221, LAB20, [id number] ####Account Services Associate: HANS PAULSON ([phone])[facility]ERNorma [place] (SBHLAB)[address] CBC W Auto Differential pane l (Bld)Ordered By: Eh Alves on 07-30-2024 Basophils (Bld) [#/Vol] 0 10*3/uL 0.0 - 0.2 10*3/uL [facility] Basophils/100 WBC (Bld) 0.4 % 0.0 - 2.0 % [facility] Eosinophils (Bld) [#/Vol] 0.2 10*3/uL 0.0 - 0.5 10*3/uL [facility] Eosinophils/100 WBC (Bld) 2.7 % 0.0 - 6.0 % [facility] Erythrocyte distribution width (RBC) [Ratio] 13.4 % 11.5 - 15.0 % [facility] Hematocrit (Bld) [Volume fraction] 37 % 35.0 - 47.0 % [facility] Hemoglobin (Bld) [Mass/Vol] 11.2 g/dL Low 11.7 - 16.0 g/dL [facility] Immature granulocytes (Bld) [#/Vol] 0 10*3/uL NINF - 0.1 10*3/uL [facility] Immature granulocytes/100 WBC (Bld) 0.3 % 0.0 - 2.0 % [facility] Interpretation and review of laboratory results Abnormal [facility] Lymphocytes (Bld) [#/Vol] 1 10*3/uL 1.0 - 4.3 10*3/uL [facility] Lymphocytes/100 WBC (Bld) 10.7 % Low 15.0 - 45.0 % [facility] MCH (RBC) [Entitic mass] 31.3 pg 26. 0 - 34.0 pg [facility] MCHC (RBC) [Mass/Vol] 30.3 % Low 30.5 - 36.0 % [facility] MCV (RBC) [Entitic vol] 103.4 fL High 77.0 - 99.0 fL [facility] Monocytes (Bld) [#/Vol] 0.5 10*3/uL 0.0 - 0.9 10*3/uL [facility] Monocytes/100 WBC (Bld) 5.5 % 5.0 - 13.0 % [facility] Neutrophils (Bld) [#/Vol] 7.2 10*3/uL 1.8 - 7.5 10*3/uL [facility] Neutrophils/100 WBC (Bld) 80.4 % 38.0 - 82.0 % [facility] Nucleated RBC/100 WBC (Bld) [Ratio] 0 % [facility] [employer] Platelet mean volume (Bld) [Entitic vol] 9.5 fL 9.0 - 12.7 fL [facility] Platelets (Bld) [#/Vol] 225 10*3/uL 140 - 440 10*3/uL [facility] RBC (Bld) [#/Vol] 3.58 10*6/uL Low 3.80 - 5.2 0 10*6/uL [facility] WBC (Bld) [#/Vol] 8.9 10*3/uL 3.6 - 10.7 10*3/uL [facility] CBC WITH AUTO DIFFERENTIALon 07-30-2024 Basophils (Bld) [#/Vol] 0.0 10*3/uL Normal 0.0-0.2 [facility] Comment on above: Performed By: #### L [id number] ####Account Services Associate: HANS PAULSON ([phone])[facility]A [facility] (SBHLAB)[address] [place] [address] Basophils/100 WBC (Bld) 0.4 % Normal 0.0-2.0 [facility] Comment on above: Performed By: #### L [id number] ####Account Services Associate: HANS PAULSON ([phone])[facility] [place] (SBHLAB)[address] Eosinophils (Bld) [#/Vol] 0.2 10*3/uL Normal 0.0-0.5 [facility] Comment on above: Performed By: #### L [id number] ####Account Services Associate: HNAS PAULSON ([phone])[facility] [place] (SBHLAB)[address] Eosinophils/100 WBC (Bld) 2.7 % Normal 0.0-6.0 [facility] Comment on above: Performed By: #### L [id number] ####Account Services Associate: HANS PAULSON ([phone])[facility] [place] (SBHLAB)[address] Erythrocyte distribution width (RBC) [Ratio] 13.4 % Normal 11.5-15.0 [facility] Comment on above: Performed By: #### L [id number] ####Account Services Associate: HANS [phone])[facility] [place] (SBHLAB)[address] Hematocrit (Bld) [Volume fraction] 37.0 % Normal 35.0-47.0 [facility] Comment on above: Performed By: #### L [id number] ####Account Services Associate: HANS ALCANTARESCOBAR ([phone])[facility] (SBHLAB)[address] Hemoglobin (Bld) [Mass/Vol] 11.2 g/dL Low 11.7-16.0 [facility] Comment on above: Performed By: #### L [id number] ####Account Services Associate: HANS PAULSON ([phone])[facility] ([facility])[address] IMMATURE GRANS % 0.3 % Normal 0.0-2.0 [facility] Comment on above: Performed By: #### L [id number] ####Account Services Associate: HANS ALCANTARESCOBAR ([phone])[facility] ([facility])[address] IMMATURE GRANS ABSOLUTE 0.0 10*3/uL Normal <0.1 [facility] Comment on above: Performed By: #### L [id number] ####Account Services Associate: HANS PAULSON ([phone])[facility] ([facility])[address] [place] [address] [place] Lymphocytes (Bld) [#/Vol] 1.0 10*3/uL Normal 1.0-4.3 [facility] Comment on above: Performed By: #### L [id number] ####Account Services Associate: HANS PAULSON ([phone])[facility] ([facility])[address] Lymphocytes/100 WBC (Bld) 10.7 % Low 15.0-45.0 [facility] Comment on above: Performed By: #### L [id number] ####Account Services Associate: HANS PAULSON ([phone])[facility] [place] (SBHLAB)[address] MCH (RBC) [Entitic mass] 31.3 pg Normal 26.0-34.0 [facility] Comment on above: Performed By: #### L [id number] ####Account Services Associate: HANS PAULSON ([phone])[facility] [place] (SBHLAB)[address] MCHC 30.3 % Low 30.5-36.0 [facility] Comment on above: Performed By: #### L [id number] ####Account Services Associate: HANS PAULSON ([phone])[facility] [place] (SBHLAB)[address] MCV (RBC) [Entitic vol] 103.4 fL High 77.0-99.0 S [facility] Comment on above: Performed By: #### L [id number] ####Account Services Associate: HANS PAULSON ([phone])[facility] [place] (SBHLAB)[address] Monocytes (Bld) [#/Vol] 0.5 10*3/uL Normal 0.0-0.9 [facility] Comment on above: Performed By: #### L [id number] ####Account Services Associate: HANS PAULSON ([phone])[facility] [place] (SBHLAB)[address] Monocytes/100 WBC (Bld) 5.5 % Normal 5.0-13.0 [facility] Comment on above: Performed By: #### L [id number] ####Account Services Associate: HANS PAULSON ([phone])[facility] [place] (SBHLAB)[address] NEUTROPHILS ABSOLUTE 7.2 10*3/uL Normal 1.8-7.5 [facility] Comment on above: Performed By: #### L [id number] ####Account Services Associate: HANS PAULSON ([phone])[facility] [place] (SBHLAB)[address] Neutrophils/100 WBC (Bld) 80.4 % Normal 38.0-82.0 [facility] Comment on above: Performed By: #### L [id number] ####Account Services Associate: HANS PAULSON ([phone])[facility] [place] (SBHLAB)[address] NRBC 0.0 /100 WBCs Normal 0.0-2.0 [facility] Comment on above: Performed By: #### L [id number] ####Account Services Associate: HANS PAULSON ([phone])[facility] (SBHLAB)[address] Platelet mean volume (Bld) [Entitic vol] 9.5 fL Normal 9.0-12.7 [facility] Comment on above: Performed By: #### L [id number] ####Account Services Associate: HANS PAULSON ([phone])[facility] (SBHLAB)[address] Platelets (Bld) [#/Vol] 225 10*3/uL Normal 140-440 [facility] Comment on above: Performed By: #### L [id number] ####Account Services Associate: HANS PAULSON ([phone])[facility] ([facility])[address] RBC (Bld) [#/Vol] 3.58 10*6/uL Low 3.80-5.20 [facility] Comment on above: Performed By: #### L [id number] ####Account Services Associate: HANS PAULSON ([phone])[facility] [place] (SBHLAB)[address] WBC (Bld) [#/Vol] 8.9 10*3/uL Normal 3.6-10.7 [facility] Comment on above: Performed By: #### L [id number] ####Account Services Associate: HANS PAULSON ([phone])[facility] (SBHLAB)[address] Leigh 07-30-2024 CNOV Office Visit (FAMDNA ) GONZALO DELUCA ([id number]) 1955 F Date Time Provider Department 07/30/24 3:00 PM HERMINIA CASE During your visit today, we recorded the following information about you: Temperature Pulse Blood pressure Weight 98.4 degrees 106/minute 120/78 40.6 kg Height 1.641 m Herminia Case MD 07/30/2024 4:33 PM Signed 07/30/2024 Recording using Artspace software for draft documentation of the visit was discussed with the patient/authorized risk control representative; all questions welcomed and answered. Patient/authorized risk control representative agreed to proceed HPI: Gonzalo is [...] Psychiatric: ( (more content not included)... Normal [facility] COMPLETE URINALYSIS WITH REF FAMILIA TO CULTURE 07-30-2024 AMORPHOUS CRYSTALS (#/HPF) IN URINE Many Abnormal Negative [facility] Comment on above: Performed By: #### L [id number] ####Account Services Associate: HANS PAULSON ([phone])[facility] ([facility])[address] [place] [address] BACTERIA (#/HPF) IN URINE Negative Normal Negative [facility] Comment on above: Performed By: #### L [id number] ####Account Services Associate: HANS PAULSON ([phone])[facility] ([facility])[address] [place] [address] BILIRUBIN, TOTAL PRESENCE IN URINE Negative Normal Negative [facility] Comment on above: Performed By: #### L [id number] ####Account Services Associate: HANS PAULSON ([phone])[facility] (SBHLAB)[address] Clarity (U) Turbid Abnormal Clear [facility] Comment on above: Performed By: #### L [id number] ####Account Services Associate: HANS PAULSON ([phone])[facility] ([facility])[address] Color (U) Yellow Normal Lt. Yellow [facility] Comment on above: Performed By: #### L [id number] ####Account Services Associate: HANS PAULSON ([phone])[facility] ([facility])[address] [place] [address] GLUCOSE (MG/DL) IN URINE Normal Normal Normal (<70 ) [facility] Comment on above: Performed By: #### L [id number] ####Account Services Associate: HANS PAULSON ([phone])[facility] ([facility])[address] [place] [address] HEMOGLOBIN PRESENCE IN URINE Negative Normal Negative [facility] Comment on above: Performed By: #### L [id number] ####Account Services Associate: HANS PAULSON ([phone])[facility] ([facility])[address] [place] [address] HYALINE CASTS (#/LPF) IN URINE SEDIMENT BY MICROSCOPY 0-2 Abnormal Negative [facility] Comment on above: Performed By: #### L [id number] ####Account Services Associate: HANS PAULSON ([phone])[facility] ([facility])[address] [place] [address] Ketones Ql (U) Negative Normal Negative [facility] Comment on above: Performed By: #### L [id number] ####Account Services Associate: HANS PAULSON ([phone])[facility] ([facility])[address] [place] [address] LEUKOCYTE ESTERASE PRESENCE IN URINE BY TEST STRIP 25 Sandra/uL Abnormal Negative [facility] Comment on above: Performed By: #### L [id number] ####Account Services Associate: HANS PAULSON ([phone])[facility]ENTERNorma [facility] (SBHLAB)[address] [place] [address] [place] MUCUS (#/LPF) IN URINE SEDIMENT Few Normal Negative [facility] Comment on above: Performed By: #### L [id number] ####Account Services Associate: HANS PAULSON ([phone])[facility]ENTERNorma [facility] (SBHLAB)[address] NITRITE PRESENCE IN URINE Negative Normal Negative [facility] Comment on above: Performed By: #### L [id number] ####Account Services Associate: HANS PAULSON ([phone])[facility] (SB[facility])[address] pH (U) 7.5 [pH] Normal 5.0-8.0 [facility] Comment on above: Performed By: #### L [id number] ####Account Services Associate: HANS PAULSON ([phone])[facility])[address] Protein (U) [Mass/Vol] 10 mg/dL Abnormal Negative [facility] Comment on above: Performed By: #### L [id number] ####Account Services Associate: HANS PAULSON ([phone])[facility] ([facility])[address] RBC (#/HPF) IN URINE SEDIMENT 0-2 Normal 0-2 [facility] Comment on above: Performed By: #### L [id number] ####Account Services Associate: HANS PAULSON ([phone])[facility])[address] Specific gravity (U) [Rel density] 1.023 Normal 1.005-1.030 [facility] Comment on above: Result Comment: KYM Gilmore COMMENTS:A specimen with <=10 WBC is not consistent with inflammation. This specimen will not reflex to a urine culture. Performed By: #### L [id number] ####Account Services Associate: HANS [phone])[facility] JOSE CARLOSSTEVEN (SBHLAB)[address] SQUAMOUS EPITHELIAL CELLS (#/HPF) IN URINE SEDIMENT 0-2 Normal 3-5 [facility] Comment on above: Performed By: #### L [id number] ####Account Services Associate: HANS PAULSON ([phone])[facility] [place] (SBHLAB)[address] UROBILINOGEN (MG/DL) IN URINE Normal Normal Normal (0-1) [facility] Comment on above: Performed By: #### L [id number] ####Account Services Associate: HANS PAULSON ([phone])[facility]ENTERNorma [facility] CENTERRaimundo (SBHLAB)[address] [place] [address] WBC (LEUKOCYTE) (#/HPF) IN URINE SEDIMENT 3-5 Normal 0-5 [facility] Comment on above: Performed By: #### L [id number] ####Account Services Associate: HANS PAULSON ([phone])[facility]ENTERNorma [facility]PITALRaimundo (SBHLAB)[address] [place] [address] Cobalamin (Vitamin B12) [Mas s/Vol]on 07-30-2024 Interpretation and review of laboratory results Normal [facility] ECG 12-LEADon 07-30-2024 ECG 12-LEAD IMPRESSION: Sinus rhythm Left axis deviation Electronically Signed On 07-30-2024 21:23:27 EDT by Evelio Sterling Normal [facility] ED Provider Noteon ED Provider Note Normal [facility] FOLATEon 07-30-2024 FOLATE RESULT 5.2 ng/mL Low 7.0-31.4 [facility] Comment on above: Performed By: #### L AB99, [id number], LAB69, LAB15, MSU400, LAB67, GSM180, LAB20, [id number] ####Account Services Associate: HANS PAULSON ([phone])[facility]ENTERNorma [place] (SBHLAB)[address] [place] [address] [place] Folate [Mass/Vol]on 07-31-19 Interpretation and review of laboratory results Abnormal [facility] HEPATIC FUNCTION PANELon Albumin [Mass/Vol] 3.0 g/dL Low 3.4-4.8 [facility] Comment on above: Performed By: #### L AB99, PSN058, LAB69, LAB15, BRI983, LAB67, AFE790, LAB20, [id number] ####Account Services Associate: HANS PAULSON ([phone])[facility] (SBHLAB)[address] ALP [Catalytic activity/Vol] 97 U/L Normal 40-150 [facility] Comment on above: Performed By: #### L AB99, [id number], LAB69, LAB15, MRP853, LAB67, GCX687, LAB20, [id number] ####Account Services Associate: HANS PAULSON ([phone])[facility] ([facility])[address] [place] [address] ALT [Catalytic activity/Vol] 10 U/L Normal <30 [facility] Comment on above: Performed By: #### L AB99, RBT560, LAB69, LAB15, LUG131, LAB67, UYJ894, LAB20, [id number] ####Account Services Associate: HANS PAULSON ([phone])[facility] ([facility])[address] [place] [address] AST [Catalytic activity/Vol] 21 U/L Normal <34 [facility] Comment on above: Performed By: #### L AB99, NFV358, LAB69, LAB15, MXP193, LAB67, GQA246, LAB20, [id number] ####Account Services Associate: HANS PAULSON ([phone])[facility] ([facility])[address] [place] [address] Bilirubin [Mass/Vol] 0.2 mg/dL Normal <1.2 [facility] Comment on above: Performed By: #### L AB99, PHL198, LAB69, LAB15, WCM690, LAB67, GLT595, LAB20, [id number] ####Account Services Associate: HANS LORENE ([phone])[facility] (SBAB)[address] [place] [address] Bilirubin.indirect [Mass/Vol] 0.1 mg/dL Normal <0.5 [facility] Comment on above: Performed By: #### L AB99, QWG011, LAB69, LAB15, GJP021, LAB67, CHU369, LAB20, [id number] ####Account Services Associate: HANS WALDROPIVELISSE ([phone])[facility] (SBAB)[address] [place] [address] Protein [Mass/Vol] 6.5 g/dL Normal 6.4-8.3 [facility] Comment on above: Result Comment: Seru m protein values are higher than plasma values. Samples from recumbent persons are lower by up to 0.5 g/dL as compared to ambulatory persons. After 60 years values are lower by up to 0.2 g/dL. Performed By: #### L AB99, INI732, LAB69, LAB15, XDA773, LAB67, YLW869, LAB20, [id number] ####Account Services Associate: HANS WALDROPIVELISSE ([phone])[facility] ([facility])[address] [place] [address] Hepatic function 2000 panelo n 07-30-2024 Albumin [Mass/Vol] 3 g/dL Low 3.4 - 4.8 g/dL [facility] ALP [Catalytic activity/Vol] 97 U/L 40 - 150 U/L [facility] ALT [Catalytic activity/Vol] 10 U/L NINF - 30 U/L [facility] AST [Catalytic activity/Vol] 21 U/L [facility] - 34 U/L [facility] Bilirubin [Mass/Vol] 0.2 mg/dL [facility] - 1.2 mg/dL [facility] Bilirubin.conjugated [Mass/Vol] 0.1 mg/dL [facility] - 0.5 mg/dL [facility] Protein [Mass/Vol] 6.5 g/dL 6.4 - 8.3 g/dL [facility] Comment on above: Serum protein values are higher than plasma values. Samples from recumbent persons are lower by up to 0.5 g/dL as compared to ambulatory persons. After 60 years values are lower by up to 0.2 g/dL. LIPASEon 07-30-2024 Lipase [Catalytic activity/Vol] 18 U/L Normal <55 [facility] Comment on above: Performed By: #### L AB99, OLH468, LAB69, LAB15, RHV763, LAB67, QJT655, LAB20, [id number] ####Account Services Associate: HANS PAULSON ([phone])[facility] (SBHLAB)[address] [place] [address] Laboratory - Chemistry and C hemistry - challengeon 07-30-2024 Folate [Mass/Vol] 5.2 ng/mL Low 7.0 - 31.4 ng/mL [facility] Cobalamin (Vitamin B12) [Mass/Vol] 639 pg/mL 213 - 816 pg/mL [facility] Lipase [Catalytic activity/Vol] 18 U/L NINF - 55 U/L [facility] Magnesium [Mass/Vol] 1.9 mg/dL 1.6 - 2 .6 mg/dL [facility] MAGNESIUMon 07-30-2024 Magnesium [Mass/Vol] 1.9 mg/dL Normal 1.6-2.6 [facility] Comment on above: Result Comment: KYM Gilmore COMMENTS:Higher values can be expected in females during menses. Performed By: #### L AB99, QWX539, LAB69, LAB15, WNY618, LAB67, WZI614, LAB20, [id number] ####Account Services Associate: HANS PAULSON ([phone])[facility] (SBHLAB)[address] [place] [address] Magnesium [Mass/Vol]on 07-30 Higher values can be expected in females during menses. [facility] [employer] No Panel InformationOrdered By: Evelio Sterling on 07-30-2024 P [place] 53 degrees [facility] [employer] Work Phone: TN Interval 137 ms [facility] [employer] Work Phone: QRS [place] -35 degrees [facility] [employer] Work Phone: QRSD Interval 99 ms [facility] [employer] Work Phone: QT Interval 350 ms [email or web address] Work Phone: QTC Interval 439 ms [email or web address] Work Phone: T Wave [place] 43 degrees [email or web address] Work Phone: [email or web address] Work Phone: No Panel Informationon 07-30 Sinus rhythm Left axis deviation Electronically Signed On 07-30-2024 21:23:27 EDT by Evelio Reyez DO - 07/30/2024 IMPRESSION: Sinus rhythm Left axis deviation Electronically Signed On 07-30-2024 21:23:27 EDT by Evelio Sterling [facility] [employer] Interpretation and review of laboratory results Abnormal [facility] [employer] Interpretation and review of laboratory results Normal [facility] [employer] [facility] [employer] Luis E Keating DO 07/30/2024 9:53 PM Splint Application Performed by: Luis E Keating DO Authorized by: Luis E Keating DO Consent: Consent obtained: Verbal Consent given by: Patient Risks, benefits, and alternatives were discussed: yes Risks discussed: Pain, numbness and swelling Alternatives discussed: Delayed treatment and referral [place] protocol: Patient identity confirmed: Verbally with patient [...] no immediate complications Post-procedure imaging: not applicable [employer] PROCALCITONIN TESTon 025 PROCALCITONIN 0.03 ng/mL Normal <0.07 [employer] [facility] Comment on above: Result Comment: KYM Gilmore COMMENTS:PCT <0.50 = Low risk of severe sepsis and/or septic shock.PCT >2.00 = High risk of severe sepsis and/or septic shock. Performed By: #### L AB99, UOG084, LAB69, LAB15, NBG057, LAB67, EHI295, LAB20, [id number] ####Account Services Associate: HANS PAULSON ([phone])[facility] (SBHLAB)[address] THYROID STIMULATING HORMONEo n 07-30-2024 THYROID STIMULATING HORMONE 0.28 uIU/mL Low 0.35-4.94 [facility] Comment on above: Performed By: #### L AB99, ZHT391, LAB69, LAB15, ADP212, LAB67, BWS631, LAB20, [id number] ####Account Services Associate: HANS PAULSON ([phone])[facility] (SBHLAB)[address] Urinalysis complete panel (U )on 07-30-2024 Amorphous Crystals, Urine Many Abnormal Negative /HPF [facility] Bacteria LM.HPF (Urine sed) [#/Area] Negative Negative /HPF [facility] Bilirubin Ql (U) Negative Negative mg/dL [facility] Clarity (U) Turbid Abnormal Clear [facility] Color (U) Yellow Lt. Yellow [facility] Epithelial cells.squamous LM.HPF (Urine sed) [#/Area] 0-2 [facility] Glucose Ql (U) Normal Normal (<70) mg/dL [facility] Hemoglobin Ql (U) Negative Negative mg/dL [facility] Hyaline casts Auto (Urine sed) [#/Area] 0-2 Abnormal Negative /LPF [facility] Interpretation and review of laboratory results Abnormal [facility] Ketones (U) [Mass/Vol] Negative Negat [place] mg/dL [facility] Leukocyte esterase Test strip Ql (U) 25 Abnormal Negative Sandra/uL [facility] Mucus LM.HPF (Urine sed) [#/Area] Few Negative /LPF [facility] Nitrite Ql (U) Negative Negative [facility] th pH (U) 7.5 [pH] 5.0 - 8.0 pH [facility] Protein (U) [Mass/Vol] 10 mg/dL Abnormal Negative [facility] RBC LM.HPF (Urine sed) [#/Area] 0-2 [facility] Specific gravity (U) [Rel density] 1.023 1.005 - 1.030 [facility] Urobilinogen (U) [Mass/Vol] Normal Normal (0-1) mg/dL [facility] WBC LM.HPF (Urine sed) [#/Area] 3-5 [facility] A specimen with <=10 WBC is not consistent with inflammation. This specimen will not reflex to a urine culture. [facility] VITAMIN B12on 07-30-2024 Cobalamin (Vitamin B12) [Mass/Vol] 639 pg/mL Normal 213-816 [facility] Comment on above: Performed By: #### L AB99, YUB780, LAB69, LAB15, DNX839, LAB67, NJH296, LAB20, [id number] ####Account Services Associate: HANS PAULSON ([phone])[facility] (SBAB)[address] [place] [address] Vital signsOrdered By: Evelio Sterling on 07-30-2024 Heart rate 95 /min bpm [facility] Work Phone: XR Chest Single viewon 07-30 No acute cardiopulmonary abnormality identified. Chronic appearing lung changes. Report Dictated on Electronically Signed By: Honorio Andino MD Electronically Signed Date/Time: 07/30/2024 5:42 PM EDT [facility] Patient Name: GONZALO DELUCA [facility] 1955 [id number] Exam Date/Time: 07/30/2024 17:32 Procedure: XR CHEST [...] demonstrated. Bones are osteopenic. Other findings: None. [facility] Honorio Andino MD [...] Electronically Signed Date/Time: 07/30/2024 5:42 PM EDT [facility] Radiology Study observation (narrative) [facility] alth XR Elbow - left 2 Viewson Acute, obliquely oriented, slightly displaced and impacted fracture through the supracondylar region of the left elbow with associated soft tissue swelling. Report Dictated on Electronically Signed By: Honorio Andnio MD Electronically Signed Date/Time: 07/30/2024 5:46 PM EDT [facility] Patient [...] 07/30/2024 Patient Name: GONZALO DELUCA : 1955 [id number] Exam Date/Time: 07/30/2024 17:32 Procedure: XR ELBOW [...] Date/Time: 07/30/2024 5:46 PM EDT [facility] Radiology Study observation (narrative) Abe paz XR Elbow - left 2 ViewsOrder ed By: Honorio Andino on 07-30-2024 [facility] [employer] Work Phone: Progress Noteon 07-24-2024 Progress Note Call placed to patient, no show for port flush appointment today. LVM to return call to get rescheduled. Normal [facility] CNPNon 06-30-2024 CNPN Telephone (FAMDNA) GONZALO DELUCA ([id number]) 1955 F Date Time Provider Department 06/30/24 HERMINIA CASE During your visit today, we recorded the following information about you: Whit Shay LPN 06/30/2024 10:14 AM Signed Type of letter/form/fax request - Assisted living orders Form received from [facility] on 06/29/24 floor and placed on MD desk () for completion. Completed form needs to be faxed to [phone]. Route to OK when form completed for processing Leona Castañeda APRN.[employer] 07/02/2024 2:33 PM Signed Orders signed and in outbox. Please fax. Thank you, Leona Castañeda APRN.Whit Munguia LPN 07/02/2024 2:54 PM Signed Request completed and faxed. Allergies As of Date: 06/30/2024 Noted Allergy Reaction SEASONAL ALLERGIES 08/16/2017 5 - Intolerance Date Reviewed: 12/30/2023 Reviewed by: Joaquina Martinez APRN.[employer] - Fully Assessed Reason for Visit: Orders [...] Encounter Status:Closed by WHIT SHAY on 07/02/24 [facility] 06-07-2024 CNPN Telephone (HCSIND) YOSIGONZALO ([id number]) 1955 F Date Time Provider Department 06/07/24 [...] 06/10/2024 8:38 AM Signed Herminia Case MD, [facility] received a referral for [facility] services. We have made several attempts [...] Date Reviewed: 12/30/2023 Reviewed by: Joaquina Martinez APRN.[employer] - Fully Assessed Reason for Visit: Home [...] [facility] GONZALO DELUCA ([id number]) 1955 F Date Time Provider Department 06/07/24 MADDI VALERO HCSIND During your visit today, we recorded the following information about you: Allergies As of Date: 06/07/2024 Noted Allergy Reaction SEASONAL ALLERGIES 08/16/2017 5 - Intolerance Date Reviewed: 12/30/2023 Reviewed by: Joaquina Martinez APRN.[facility] - Fully Assessed Reason for Visit: [...] Encounter Status:Closed by MADDI VALERO on 06/07/24 [facility] 06-06-2024 ANUEL Telephone (HCSIND) GONZALO DELUCA ([id number]) 1955 F Date Time Provider Department 06/06/24 HERMINIA CASE During your visit today, we recorded the following information about you: Erna Diaz LPN 06/06/2024 1:02 PM Signed Herminia Case MD Thank you for the referral for Gonzalo Deluca to receive home care services through [facility]. At this time, the office note [...] Date Reviewed: 12/30/2023 Reviewed by: Joaquina Martinez APRN.[employer] - Fully Assessed Reason for Visit: Home [...] access [I87.8] more content not included)... Normal [facility] 36on 06-05-2024 36 Pt called with christian feldman to schedule appt with [facility]. Made appt with pt being past due. Pt was supposed to be seen 05/14 for 6 month surveillance appt. Called [facility] and scheduled port flush for 06/12/24 at 2:00 pm. Normal [facility] 36 Patient called to obtain an order for a port flush and/or removal. Patient not sure if she needs to make an appointment. Patient would like schedule in [place]. Verified contact number for patient is correct. Normal [facility] Basic metabolic 1998 panelon 04-28-2024 Anion gap [Moles/Vol] 8 mmol/L 3 - 13 mmol/L [facility] Calcium [Mass/Vol] 9.1 mg/dL 8.8 - 10. 0 mg/dL [facility] Chloride [Moles/Vol] 102 mmol/L 98 - 10 7 mmol/L [facility] CO2 [Moles/Vol] 33 mmol/L High 23 - 31 mmol/L [facility] Creatinine [Mass/Vol] 0.78 mg/dL 0.57 - 1.11 mg/dL [facility] GFR/1.73 sq M.predicted (S/P/Bld) [Vol rate/Area] 83.4 mL/min - PINF [facility] Comment on above: Calculation based on the Chronic Kidney Disease Epidemiology Collaboration (CKD-EPI) equation refit without adjustment for race Glucose [Mass/Vol] 179 mg/dL High 82 - 115 mg/dL [facility] Interpretation and review of laboratory results Abnormal [facility] Potassium [Moles/Vol] 3.6 mmol/L 3.5 - 5.1 mmol/L [facility] Comment on above: Plasma potassium martín ues may be up to 0.5 mmol/L lower than serum values. Sodium [Moles/Vol] 143 mmol/L 136 - 145 mmol/L [facility] Urea nitrogen [Mass/Vol] 13 mg/dL 9 - 23 mg/d L [facility] CBC W Auto Differential pane l (Bld)Ordered By: Hakeem Cruz on 04-28-2024 Basophils (Bld) [#/Vol] 0 10*3/uL 0.0 - 0.2 10*3/uL [facility] Basophils/100 WBC (Bld) 0.6 % 0.0 - 2.0 % [facility] Eosinophils (Bld) [#/Vol] 0.3 10*3/uL 0.0 - 0.5 10*3/uL [facility] Eosinophils/100 WBC (Bld) 4 % 0.0 - 6.0 % [facility] Erythrocyte distribution width (RBC) [Ratio] 13.2 % 11.5 - 15.0 % [facility] Hematocrit (Bld) [Volume fraction] 37.3 % 35.0 - 47.0 % [facility] Hemoglobin (Bld) [Mass/Vol] 11.5 g/dL Low 11.7 - 16.0 g/dL [facility] Immature granulocytes (Bld) [#/Vol] 0 10*3/uL NINF - 0.1 10*3/uL [facility] Immature granulocytes/100 WBC (Bld) 0.5 % 0.0 - 2.0 % [facility] Interpretation and review of laboratory results Abnormal [facility] Lymphocytes (Bld) [#/Vol] 0.7 10*3/uL Low 1.0 - 4.3 10*3/uL [facility] Lymphocytes/100 WBC (Bld) 10.6 % Low 15.0 - 45.0 % [facility] MCH (RBC) [Entitic mass] 30.9 pg 26. 0 - 34.0 pg [facility] MCHC (RBC) [Mass/Vol] 30.8 % 30.5 - 36.0 % [facility] MCV (RBC) [Entitic vol] 100.3 fL High 77.0 - 99.0 fL [facility] Monocytes (Bld) [#/Vol] 0.4 10*3/uL 0.0 - 0.9 10*3/uL [facility] Monocytes/100 WBC (Bld) 6.5 % 5.0 - 13.0 % [facility] Neutrophils (Bld) [#/Vol] 5.1 10*3/uL 1.8 - 7.5 10*3/uL [facility] Neutrophils/100 WBC (Bld) 77.8 % 38.0 - 82.0 % [facility] Nucleated RBC/100 WBC (Bld) [Ratio] 0 % [facility] Platelet mean volume (Bld) [Entitic vol] 10 fL 9.0 - 12.7 fL [facility] Platelets (Bld) [#/Vol] 165 10*3/uL 140 - 440 10*3/uL [facility] RBC (Bld) [#/Vol] 3.72 10*6/uL Low 3.80 - 5.2 0 10*6/uL [facility] WBC (Bld) [#/Vol] 6.5 10*3/uL 3.6 - 10.7 10*3/uL [facility] CT [facility] CERVICAL SPINE WO IV CONTRAST Normal [facility] CT Cervical spine WO contras ton [...] the paranasal sinuses shows no air-fluid levels. [facility] Ramses Gamble MD - 04/28/2024 Patient Name: [...] process. Report Dictated on Electronically Signed By: Rasmes Gamble MD Electronically Signed Date/Time: 04/28/2024 12:50 AM EST [facility] Radiology Study observation (narrative) [facility] alth CT HEAD WO IV CONTRASTon CT HEAD WO IV CONTRAST Normal [facility] CT Head WO contraston 2024 Patient [...] the paranasal sinuses shows no air-fluid levels. [facility] Ramses Gamble MD - 04/28/2024 Patient [...] Date/Time: 04/28/2024 12:50 AM EST [facility] Radiology Study observation (narrative) [facility] ECG 12-LEADon 04-28-2024 ECG 12-LEAD IMPRESSION: Sinus rhythm with normal rate, intervals and QRS duration. No acute ischemic changes. Inferior Q waves, old Electronically Signed On 04-28-2024 14:40:42 EST by Freddy Ibarra Normal [facility] [employer] [facility] Laboratory - Chemistry and C hemistry - challengeon 04-28-2024 Magnesium [Mass/Vol] 2 mg/dL 1.6 - 2 .6 mg/dL [facility] Magnesium [Mass/Vol]on 04-28 Interpretation and review of laboratory results Normal [facility] [employer] Higher values can be expected in females during menses. [facility] [employer] No Panel Informationon 04-28 Impression: No acute [...] AM [facility] Interpretation and review of laboratory results Normal [email or web address] Troponin HS Serial Baseline 4 ng/L NINF - 14 ng/L [email or web address] Comment on above: In individuals prese nting with symptoms > 2h, a baseline troponin <= 5 ng/L suggests acute cardiac injury is unlikely and further serial testing is generally not indicated. [employer] XR Elbow - left 3 Viewson Findings and impression: Left elbow three views performed. Bone density is normal. No fracture or dislocation seen. Report Dictated on Electronically Signed By: Ramses Gamble MD Electronically Signed Date/Time: 04/28/2024 12:23 AM [facility] [employer] SYSTEM Patient Name: GONZALO DELUCA : 1955 Exam Date/Time: 04/28/2024 00:01 Procedure: XR ELBOW 3+ VIEWS LEFT Ordering Provider: ALTAMIRANO JEFFREY Reason For Exam: Elbow trauma Indication: Elbow trauma. [facility] Ramses Gamble MD - 04/28/2024 Patient [...] Date/Time: 04/28/2024 12:23 AM EST [facility] Radiology Study observation (narrative) [facility] XR Elbow - left 3 ViewsOrder ed By: Ramses Gamble on 04-28-2024 [facility] Work Phone: BASIC METABOLIC PANELon Anion gap [Moles/Vol] 8 mmol/L Normal 3-13 [facility] Comment on above: Performed By: #### Arsenio AB103, LAB15, [id number] ####Account Services Associate: HANS PAULSON ([phone])[facility] ([facility])[address] Calcium [Mass/Vol] 9.1 mg/dL Normal 8.8-10.0 [facility] Comment on above: Performed By: #### Arsenio AB103, LAB15, [id number] ####Account Services Associate: HANS PAULSON ([phone])[facility] Chloride [Moles/Vol] 102 mmol/L Normal 98-107 [facility] Comment on above: Performed By: #### Arsenio AB103, LAB15, [id number] ####Account Services Associate: HANS PAULSON ([phone])[facility] ([facility])[address] [place] [address] [place] CO2 [Moles/Vol] 33 mmol/L High 23-31 [facility] Comment on above: Performed By: #### L AB103, LAB15, [id number] ####Account Services Associate: HANS PAULSON ([phone])[facility] ([facility])[address] [place] [address] [place] Creatinine [Mass/Vol] 0.78 mg/dL Normal 0.57-1.11 [facility] Comment on above: Performed By: #### Arsenio RAGLAND, LAB15, [id number] ####Account Services Associate: HANS PAULSON ([phone])[facility] (HL[facility])[address] GLOMERULAR FILTRATION RATE ML/MIN/1.73 SQ M.PREDICTED 83.4 mL/min/1.73m*2 Normal >60.0 [facility] Comment on above: Result Comment: Calc ulation based on the Chronic Kidney Disease Epidemiology Collaboration (CKD-EPI) equation refit without adjustment for race Performed By: #### Arsenio RAGLAND, LAB15, [id number] ####Account Services Associate: HANS PAULSON ([phone])[facility] ([facility])[address] [place] [address] Glucose [Mass/Vol] 179 mg/dL High 82-115 [facility] Comment on above: Performed By: #### Arsenio RAGLAND, LAB15, [id number] ####Account Services Associate: HANS PAULSON ([phone])[facility] (HL[facility])[address] [place] [address] Potassium [Moles/Vol] 3.6 mmol/L Normal 3.5-5.1 [facility] Comment on above: Result Comment: [facility] potassium values may be up to 0.5 mmol/L lower than serum values. Performed By: #### Arsenio RAGLAND, LAB15, [id number] ####Account Services Associate: HANS PAULSON ([phone])[facility] (SB[facility])[address] [place] [address] [place] Sodium [Moles/Vol] 143 mmol/L Normal 136-145 [facility] Comment on above: Performed By: #### Arsenio RAGLAND, LAB15, [id number] ####Account Services Associate: HANS PAULSON ([phone])[facility] ([facility])[address] [place] [address] Urea nitrogen [Mass/Vol] 13 mg/dL Normal 9-23 [facility] Comment on above: Performed By: #### L AB103, LAB15, [id number] ####Account Services Associate: HANS ALCANTARESCOBAR ([phone])[facility] ([facility])[address] CBC WITH AUTO DIFFERENTIALon 04-27-2024 Basophils (Bld) [#/Vol] 0.0 10*3/uL Normal 0.0-0.2 [facility] Comment on above: Performed By: #### L [id number] ####Account Services Associate: HANS ALCANTARESCOBAR ([phone])[facility] ([facility])[address] Basophils/100 WBC (Bld) 0.6 % Normal 0.0-2.0 S [facility] Comment on above: Performed By: #### L [id number] ####Account Services Associate: HANS WALDROPBOOESCOBAR ([phone])[facility] ([facility])[address] Eosinophils (Bld) [#/Vol] 0.3 10*3/uL Normal 0.0-0.5 [facility] Comment on above: Performed By: #### L [id number] ####Account Services Associate: HANS PAULSON ([phone])[facility] ([facility])[address] Eosinophils/100 WBC (Bld) 4.0 % Normal 0.0-6.0 [facility] Comment on above: Performed By: #### L [id number] ####Account Services Associate: HANS ALCANTARESCOBAR ([phone])[facility] ([facility])[address] Erythrocyte distribution width (RBC) [Ratio] 13.2 % Normal 11.5-15.0 [facility] Comment on above: Performed By: #### L [id number] ####Account Services Associate: HANS PAULSON ([phone])[facility] ([facility])[address] Hematocrit (Bld) [Volume fraction] 37.3 % Normal 35.0-47.0 [facility] Comment on above: Performed By: #### L [id number] ####Account Services Associate: HANS PAULSON ([phone])[facility] ([facility])[address] Hemoglobin (Bld) [Mass/Vol] 11.5 g/dL Low 11.7-16.0 [facility] Comment on above: Performed By: #### L [id number] ####Account Services Associate: HANS PAULSON ([phone])[facility])[address] [place] [address] IMMATURE GRANS % 0.5 % Normal 0.0-2.0 [facility] Comment on above: Performed By: #### L [id number] ####Account Services Associate: HANS PAULSON ([phone])[facility] ([facility])[address] [place] [address] IMMATURE GRANS ABSOLUTE 0.0 10*3/uL Normal <0.1 [facility] Comment on above: Performed By: #### L [id number] ####Account Services Associate: HANS PAULSON ([phone])[facility])[address] [place] [address] Lymphocytes (Bld) [#/Vol] 0.7 10*3/uL Low 1.0-4.3 [facility] Comment on above: Performed By: #### L [id number] ####Account Services Associate: HANS PAULSON ([phone])[facility] ([facility])[address] [place] [address] [place] Lymphocytes/100 WBC (Bld) 10.6 % Low 15.0-45.0 [facility] Comment on above: Performed By: #### L [id number] ####Account Services Associate: HANS PAULSON ([phone])[facility])[address] [place] [address] MCH (RBC) [Entitic mass] 30.9 pg Normal 26.0-34.0 [facility] Comment on above: Performed By: #### L [id number] ####Account Services Associate: HANS PAULSON ([phone])[facility] ([facility])[address] MCHC 30.8 % Normal 30.5-36.0 [facility] Comment on above: Performed By: #### L [id number] ####Account Services Associate: HANS PAULSON ([phone])[facility] ([facility])[address] MCV (RBC) [Entitic vol] 100.3 fL High 77.0-99.0 S [facility] Comment on above: Performed By: #### L [id number] ####Account Services Associate: HANS PAULSON ([phone])[facility] [place] ([facility])[address] Monocytes (Bld) [#/Vol] 0.4 10*3/uL Normal 0.0-0.9 [facility] Comment on above: Performed By: #### L [id number] ####Account Services Associate: HANS PAULSON ([phone])[facility] [place] ([facility])[address] Monocytes/100 WBC (Bld) 6.5 % Normal 5.0-13.0 S [facility] Comment on above: Performed By: #### L [id number] ####Account Services Associate: HANS PAULSON ([phone])[facility] ([facility])[address] NEUTROPHILS ABSOLUTE 5.1 10*3/uL Normal 1.8-7.5 [facility] Comment on above: Performed By: #### L [id number] ####Account Services Associate: HANS PAULSON ([phone])[facility] [place] ([facility])[address] Neutrophils/100 WBC (Bld) 77.8 % Normal 38.0-82.0 [facility] Comment on above: Performed By: #### L [id number] ####Account Services Associate: HANS PAULSON ([id number])[facility] [place] ([facility])[address] NRBC 0.0 /100 WBCs Normal 0.0-2.0 [facility] Comment on above: Performed By: #### L [id number] ####Account Services Associate: HANS PAULSON ([phone])[facility] [place] ([facility])[address] Platelet mean volume (Bld) [Entitic vol] 10.0 fL Normal 9.0-12.7 [facility] Comment on above: Performed By: #### L [id number] ####Account Services Associate: HANS PAULSON ([phone])[facility] [place] ([facility])[address] Platelets (Bld) [#/Vol] 165 10*3/uL Normal 140-440 [facility] Comment on above: Performed By: #### L [id number] ####Account Services Associate: HANS PAULSON ([phone])[facility] [place] ([facility])[address] RBC (Bld) [#/Vol] 3.72 10*6/uL Low 3.80-5.20 [facility] Comment on above: Performed By: #### L [id number] ####Account Services Associate: HANS PAULSON ([phone])[facility] [place] ([facility])[address] WBC (Bld) [#/Vol] 6.5 10*3/uL Normal 3.6-10.7 [facility] Comment on above: Performed By: #### L [id number] ####Account Services Associate: HANS PAULSON ([phone])[facility] [place] ([facility])[address] ED Nursing Noteon 04-27-2024 ED Nursing Note Per ems, fall on carpeted floor. _ LOC but pt states she was dizzy and weak prior to fall. C/o L elbow and nose pain 2ndary fall Normal [facility] ED Provider Noteon ED Provider Note Normal [facility] HIGH SENSITIVITY TROPONIN, S ERIAL BASELINEon 04-27-2024 TROPONIN HS SERIAL BASELINE 4 ng/L Normal <=14 [facility] Comment on above: Result Comment: In i ndividuals presenting with symptoms > 2h, a baseline troponin <= 5 ng/L suggests acutecardiac injury is unlikely and further serial testing is generally not indicated. Performed By: #### L AB103, LAB15, [id number] ####Account Services Associate: HANS PAULSON ([phone])[facility] ([facility])[address] [place] [address] MAGNESIUMon 04-27-2024 Magnesium [Mass/Vol] 2.0 mg/dL Normal 1.6-2.6 [facility] Comment on above: Result Comment: KYM Gilmore COMMENTS:Higher values can be expected in females during menses. Performed By: #### L AB103, LAB15, [id number] ####Account Services Associate: HANS PAULSON ([phone])[facility] ([facility])[address] [place] [address] CNPNon 03-01-2024 CNPN Telephone (FAMLOVELY) GONZALO DELUCA ([id number]) 1955 F Date Time Provider Department 03/01/24 HERMINIA CASE During your visit today, we recorded the following information about you: Whit Shay LPN 03/01/2024 10:46 AM Signed Per [facility], Diclofenac Sodium is on backorder unavailable. Please advise. KAMILAH Contreras Laura MD 03/01/2024 3:51 PM Signed Let patient [...] Date Reviewed: 12/30/2023 Reviewed by: Joaquina Martinez APRN.MOTION PICTURE SET GRIP - Fully Assessed Reason for Visit: Medication [...] Encounter Status:Closed by WHIT SHAY on 03/05/24 [facility] GONZALO DELUCA ([id number]) 1955 F Date Time Provider Department 12/27/23 HERMINIA CASE During your visit today, we recorded the following information about you: Whit Shay LPN 12/27/2023 12:51 PM Signed Type of letter/form/fax request - Home Health Care Orders Form received from [facility] on 12/26/23 floor and placed on MD desk () for completion. Completed form needs to be faxed to [phone]. Route to [place] when form completed for processing BellaWhit [email or web address] 12/27/2023 3:31 PM Signed Request completed and [...] Encounter Status:Closed by WHIT SHAY on 12/27/23 [facility] 12-13-2023 CNPN Telephone (FAMDNA) GONZALO DELUCA ([id number]) 1955 F Date Time Provider Department 12/13/23 HERMINIA CASE During your visit today, we recorded the following information about you: Whit Shay LPN 12/13/2023 11:03 AM Signed Type of letter/form/fax request - Home Health Care Orders Form received from [facility] on 12/12/23 floor and placed on desk () for completion. Completed form needs to be faxed to [phone]. Route to [place] when form completed for processing Herminia Case [...] Encounter Status:Closed by WHIT SHAY on 12/14/23 [facility] 12-06-2023 CNPN Telephone (FAMDNA) GONZALO DELUCA ([id number]) 1955 F Date Time Provider Department 12/06/23 [facility] your visit today, we recorded the following information about you: Whit Shay LPN 12/06/2023 1:40 PM Signed Type of letter/form/fax request - Home Health Care Orders Plan of Care Certification Period-11/25/23 to 01/23/24 Form received from [facility] on 12/01/23 floor and placed on MD desk () for completion. Completed form needs to be faxed to [phone]. Route to [place] when form completed for processing Herminia Case [...] Encounter Status:Closed by WHIT SHAY on 12/06/23 [facility]-14-2023 CNPN Telephone (FAMDNA) GONZALO DELUCA ([id number]) 1955 F Date Time Provider Department 11/14/23 HERMINIA CASE During your visit today, we recorded the following information about you: Whit Shay LPN 11/14/2023 11:47 AM Signed Type of letter/form/fax request - Home Health Care Orders Form received from [facility] on 11/13/23 floor and placed on MD desk () for completion. Completed form needs to be faxed to . Route to [place] when form completed for processing Herminia Case [...] Encounter Status:Closed by WHIT SHAY on 11/14/23 [facility] 10-28-2023 CNPN Telephone (FAMDNA) GONZALO DELUCA ([id number]) 1955 F Date Time Provider Department 10/28/23 HERMINIA CASE During your visit today, we recorded the following information about you: Whit Shay LPN 10/28/2023 9:46 AM Signed Type of letter/form/fax request - Home Health Care Orders Form received from [facility] on 10/27/23 floor and placed on MD desk () for completion. Completed form needs to be faxed to [phone]. Route to [place] when form completed for processing Herminia Case [...] Encounter Status:Closed by WHIT SHAY on 10/28/23 Normal [facility] Helen 10-22-2023 ANUEL Telephone (4CQ) GONZALO DELUCA ([id number]) 1955 F Date Time Provider Department 10/22/23 HERMINIA CASE 4CQ During your visit today, we recorded the following information about you: Elsy Caro 10/22/2023 11:53 AM Signed [facility] called to report that patient [...] Encounter Status:Closed by MELVA JUÁREZ on 10/24/23 [facility] GONZAL[facility] DELUCA ([id number]) 1955 F Date Time Provider Department 10/18/23 [facility] During your visit today, we recorded the following information about you: Whit Shay LPN 10/18/2023 3:01 PM Signed Type of letter/form/fax request - Home Health Care Orders Form received from [facility] on 10/18/23 floor and placed on MD desk () for completion. Completed form needs to be faxed to [phone]. Route to [place] when form completed for processing Whit Shay [...] Status:Closed by WHIT SHAY on 10/18/23 Normal [facility] CT Chest WO contraston 10-15 1. [...] MD Electronically Signed Date/Time: 10/16/2023 9:11 PM [facility] [employer] RADIOLOGY SYSTEM Patient Name: GONZALO DELUCA : [...] Date/Time: 10/16/2023 9:11 PM EDT [facility] Radiology Study observation (narrative) [facility] CT Chest WO contrastOrdered By: Roxie Kwon on 10-16-2023 [email or web address] Work Phone: XR Hip - left 3 [...] Electronically Signed Date/Time: 10/16/2023 8:46 PM EDT [facility] Radiology Study observation (narrative) [facility] NADEEMN Telephone [facility] GONZALO DELUCA ([id number]) 1955 F Date Time Provider Department 10/10/23 HERMINIA CASE During your visit today, we recorded the following information about you: Whit Shay LPN 10/10/2023 1:42 PM Signed Type of letter/form/fax request - Home Health Care Orders Form received from [facility] on 10/06/23 floor and placed on MD desk () for completion. Completed form needs to be faxed to [phone]. Route to [place] when form completed for processing Herminia Case [...] Encounter Status:Closed by WHIT SHAY on 10/11/23 [facility] 10-06-2023 CNPN Telephone (FAMDNA) GONZALO DELUCA ([id number]) 1955 F Date Time Provider Department 10/06/23 HERMINIA CASE During your visit today, we recorded the following information about you: Jessica Castro 10/06/2023 10:34 AM Signed [facility] is calling Herminia Case MD today to report patient's home health care physical therapy will be delayed a week as patient informed them that she is not feeling well.. Patient has been identified by name and birthdate. Duration of symptoms: N/A Person calling: caregiver: [facility] Call patient at: at home [phone] (home) [phone] (cell) Was an appointment scheduled: No Closing [...] Status:Closed by JOAQUINA MARTINEZ on 10/06/23 Normal [facility] Basic metabolic 1998 panelon 09-22-2023 Anion gap [Moles/Vol] 10 mmol/L 3 - 13 mmol/L [facility] Calcium [Mass/Vol] 8.9 mg/dL 8.4 - 10. 4 mg/dL [facility] Chloride [Moles/Vol] 100 mmol/L 98 - 10 7 mmol/L [facility] CO2 [Moles/Vol] 30 mmol/L 22 - 30 mmol/L [facility] Creatinine [Mass/Vol] 0.39 mg/dL Low 0.52 - 1.04 mg/dL [facility] GFR/1.73 sq M.predicted MDRD (S/P/Bld) [Vol rate/Area] - PINF [facility] Comment on above: Calculation based on the Chronic Kidney Disease Epidemiology Collaboration (CKD-EPI) equation refit without adjustment for race Glucose [Mass/Vol] 109 mg/dL High 70 - 100 mg/dL [facility] Interpretation and review of laboratory results Abnormal [facility] Potassium [Moles/Vol] 4.2 mmol/L 3.5 - 5.1 mmol/L [facility] Sodium [Moles/Vol] 140 mmol/L 135 - 145 mmol/L [facility] Urea nitrogen [Mass/Vol] 11 mg/dL 7 - 17 mg/d L [facility] CBC W Auto Differential pane l (Bld)Ordered By: Rolando Shelton on 09-22-2023 Basophils (Bld) [#/Vol] 0.1 10*3/uL 0.0 - 0.2 10*3/uL [facility] Basophils/100 WBC (Bld) 0.5 % 0.0 - 2.0 % [facility] Eosinophils (Bld) [#/Vol] 0.1 10*3/uL 0.0 - 0.5 10*3/uL [facility] Eosinophils/100 WBC (Bld) 1.3 % 0.0 - 6.0 % [facility] Erythrocyte distribution width (RBC) [Ratio] 13.2 % 11.5 - 15.0 % [facility] Hematocrit (Bld) [Volume fraction] 37.5 % 35.0 - 47.0 % [facility] Hemoglobin (Bld) [Mass/Vol] 11.9 g/dL 11.7 - 16.0 g/dL [facility] Immature granulocytes (Bld) [#/Vol] 0.0 10*3/uL NINF - 0.1 10*3/uL [facility] Immature granulocytes/100 WBC (Bld) 0.3 % 0.0 - 2.0 % [facility] Interpretation and review of laboratory results Abnormal [facility] Lymphocytes (Bld) [#/Vol] 0.8 10*3/uL Low 1.0 - 4.3 10*3/uL [facility] Lymphocytes/100 WBC (Bld) 8.6 % Low 15.0 - 45.0 % [facility] MCH (RBC) [Entitic mass] 30.3 pg 26. 0 - 34.0 pg [facility] MCHC (RBC) [Mass/Vol] 31.7 % 30.5 - 36.0 % [facility] MCV (RBC) [Entitic vol] 95.4 fL 77.0 - 99.0 fL [facility] Monocytes (Bld) [#/Vol] 0.5 10*3/uL 0.0 - 0.9 10*3/uL [facility] Monocytes/100 WBC (Bld) 5.3 % 5.0 - 13.0 % [facility] Neutrophils (Bld) [#/Vol] 8.2 10*3/uL High 1.8 - 7.5 10*3/uL [facility] Neutrophils/100 WBC (Bld) 84.0 % High 38.0 - 82.0 % [facility] Nucleated RBC/100 WBC (Bld) [Ratio] 0.0 % [facility] Platelet mean volume (Bld) [Entitic vol] 9.2 fL 9.0 - 12.7 fL [facility] Platelets (Bld) [#/Vol] 289 10*3/uL 140 - 440 10*3/uL [facility] RBC (Bld) [#/Vol] 3.93 10*6/uL 3.80 - 5.2 0 10*6/uL [facility] WBC (Bld) [#/Vol] 9.8 10*3/uL 3.6 - 10.7 10*3/uL [facility] 25-hydroxyvitamin D3 [Mass/V ol]on 09-21-2023 Interpretation and review of laboratory results Normal [facility] Therapy is based on measurement of Total 25-OHD with the following classification levels: Less than 20 ng/mL: Indicative of Vit D deficiency 20-30 ng/mL: Suggests Vit D insufficiency Optimal: Greater than or equal to 30 ng/mL Test performed by [employer] Competitive Immunoassay, measuring Total Vitamin D, not individual fractions. [facility] Basic metabolic 1998 panelon 09-21-2023 Anion gap [Moles/Vol] 2 mmol/L Low 3 - 13 mmol/L [facility] Calcium [Mass/Vol] 9.1 mg/dL 8.4 - 10. 4 mg/dL [facility] Chloride [Moles/Vol] 102 mmol/L 98 - 10 7 mmol/L [facility] CO2 [Moles/Vol] 35 mmol/L High 22 - 30 mmol/L [facility] Creatinine [Mass/Vol] 0.49 mg/dL Low 0.52 - 1.04 mg/dL [facility] GFR/1.73 sq M.predicted MDRD (S/P/Bld) [Vol rate/Area] - PINF [facility] Comment on above: Calculation based on the Chronic Kidney Disease Epidemiology Collaboration (CKD-EPI) equation refit without adjustment for race Glucose [Mass/Vol] 97 mg/dL 70 - 100 mg/dL [facility] Potassium [Moles/Vol] 3.1 mmol/L Low 3.5 - 5.1 mmol/L [facility] Sodium [Moles/Vol] 139 mmol/L 135 - 145 mmol/L [facility] Urea nitrogen [Mass/Vol] 18 mg/dL High 7 - 17 mg/d L [facility] CBC W Auto Differential pane l (Bld)Ordered By: Crystal Dupont on 09-21-2023 Basophils (Bld) [#/Vol] 0.1 10*3/uL 0.0 - 0.2 10*3/uL [facility] Basophils/100 WBC (Bld) 0.5 % 0.0 - 2.0 % [facility] Eosinophils (Bld) [#/Vol] 0.8 10*3/uL High 0.0 - 0.5 10*3/uL [facility] Eosinophils/100 WBC (Bld) 8.2 % High 0.0 - 6.0 % [facility] Erythrocyte distribution width (RBC) [Ratio] 13.2 % 11.5 - 15.0 % [facility] Hematocrit (Bld) [Volume fraction] 33.9 % Low 35.0 - 47.0 % [facility] Hemoglobin (Bld) [Mass/Vol] 10.6 g/dL Low 11.7 - 16.0 g/dL [facility] Immature granulocytes (Bld) [#/Vol] 0.0 10*3/uL NINF - 0.1 10*3/uL [facility] Immature granulocytes/100 WBC (Bld) 0.2 % 0.0 - 2.0 % [facility] Interpretation and review of laboratory results Abnormal [facility] Lymphocytes (Bld) [#/Vol] 0.8 10*3/uL Low 1.0 - 4.3 10*3/uL [facility] Lymphocytes/100 WBC (Bld) 8.7 % Low 15.0 - 45.0 % [facility] MCH (RBC) [Entitic mass] 30.2 pg 26. 0 - 34.0 pg [facility] MCHC (RBC) [Mass/Vol] 31.3 % 30.5 - 36.0 % [facility] MCV (RBC) [Entitic vol] 96.6 fL 77.0 - 99.0 fL [facility] Monocytes (Bld) [#/Vol] 0.7 10*3/uL 0.0 - 0.9 10*3/uL [facility] Monocytes/100 WBC (Bld) 7.1 % 5.0 - 13.0 % [facility] Neutrophils (Bld) [#/Vol] 7.0 10*3/uL 1.8 - 7.5 10*3/uL [facility] Neutrophils/100 WBC (Bld) 75.3 % 38.0 - 82.0 % [facility] Nucleated RBC/100 WBC (Bld) [Ratio] 0.0 % [employer] Platelet mean volume (Bld) [Entitic vol] 9.5 fL 9.0 - 12.7 fL [facility] [employer] Platelets (Bld) [#/Vol] 217 10*3/uL 140 - 440 10*3/uL [facility] RBC (Bld) [#/Vol] 3.51 10*6/uL Low 3.80 - 5.2 0 10*6/uL [facility] WBC (Bld) [#/Vol] 9.4 10*3/uL 3.6 - 10.7 10*3/uL [facility] CNPNon 09-21-2023 CNPN Telephone (FAMDNA) GONZALO DELUCA ([id number]) 1955 F Date Time Provider Department 09/21/23 HERMINIA CASE During your visit today, we recorded the following information about you: Ana Maria Acosta, RN 09/21/2023 2:55 PM Signed Ashley from [facility] Patient currently admitted for falls Need orders to follow for Home Care Call back number: [phone] Melva Juárez PA-C 09/21/2023 4:01 PM Signed Orders or will Dr. Case follow? She will follow. We don't typically give home care orders. RODRÍGUEZ Kruse Kristina, CHARLEY 09/21/2023 4:54 PM Signed Called and spoke with Vivian from [place] They just need to confirm Dr. Case [...] by ANA MARIA ACOSTA on 09/21/23 Normal [facility] Cobalamin (Vitamin B12) [Mas s/Vol]on 09-21-2023 Interpretation and review of laboratory results Normal [employer] [facility] - Chemistry and C hemistry - challengeon 09-21-2023 Cobalamin (Vitamin B12) [Mass/Vol] 735 pg/mL 239 - 931 pg/mL [email or web address] TSH Qn 1.017 m[IU]/L [facility] 25-hydroxyvitamin D3 [Mass/Vol] 30 ng/mL 30 - 100 ng/mL [email or web address] Magnesium [Mass/Vol] 1.5 mg/dL Low 1.6 - 2 .3 mg/dL [email or web address] No Panel InformationOrdered By: Dave Cao on 09-21-2023 P [place] 46 degrees [email or web address] Work Phone: [place] Interval 142 ms [email or web address] Work Phone: QRS [place] -35 degrees [email or web address] Work Phone: QRSD Interval 102 ms [employer] Work Phone: QT Interval 382 ms [email or web address] Work Phone: QTC Interval 446 ms [email or web address] Work Phone: T Wave [place] 147 degrees [email or web address] Work Phone: [email or web address] Work Phone: No Panel Informationon 09-20 Sinus rhythm Nonspecific T abnormalities, lateral leads Compared to ECG 09/19/2023 17:01:12 T-wave abnormality now present Prolonged QT interval no longer present Electronically Signed On 09-21-2023 09:19:23 EDT by Dave Cao CV Dave Forman MD - 09/21/2023 IMPRESSION: Sinus rhythm Nonspecific T abnormalities, lateral leads Compared to ECG 09/19/2023 17:01:12 T-wave abnormality now present Prolonged QT interval no longer present Electronically Signed On 09-21-2023 09:19:23 EDT by Dave Cao [facility] Interpretation and review of laboratory results Abnormal [facility] TSH Qnon 09-21-2023 Interpretation and review of laboratory results Normal [facility] Vital signsOrdered By: Bernadette Cao on 09-21-2023 Heart rate 82 /min bpm [facility] [employer] Work Phone: Basic metabolic 1998 panelon 09-20-2023 Anion gap [Moles/Vol] 5 mmol/L 3 - 13 mmol/L [facility] Calcium [Mass/Vol] 8.5 mg/dL 8.4 - 10. 4 mg/dL [facility] Chloride [Moles/Vol] 99 mmol/L 98 - 10 7 mmol/L [facility] CO2 [Moles/Vol] 33 mmol/L High 22 - 30 mmol/L [facility] Creatinine [Mass/Vol] 0.73 mg/dL 0.52 - 1.04 mg/dL [facility] GFR/1.73 sq M.predicted MDRD (S/P/Bld) [Vol rate/Area] - PINF [facility] Comment on above: Calculation based on the Chronic Kidney Disease Epidemiology Collaboration (CKD-EPI) equation refit without adjustment for race Glucose [Mass/Vol] 94 mg/dL 70 - 100 mg/dL [facility] Interpretation and review of laboratory results Abnormal [facility] Potassium [Moles/Vol] 3.1 mmol/L Low 3.5 - 5.1 mmol/L [facility] Sodium [Moles/Vol] 137 mmol/L 135 - 145 mmol/L [facility] Urea nitrogen [Mass/Vol] 28 mg/dL High 7 - 17 mg/d L [facility] CBC W Auto Differential pane l (Bld)on 09-20-2023 Basophils (Bld) [#/Vol] 0.1 10*3/uL 0.0 - 0.2 10*3/uL [facility] Basophils/100 WBC (Bld) 0.5 % 0.0 - 2.0 % [facility] Eosinophils (Bld) [#/Vol] 0.8 10*3/uL High 0.0 - 0.5 10*3/uL [facility] Eosinophils/100 WBC (Bld) 7.0 % High 0.0 - 6.0 % [facility] Erythrocyte distribution width (RBC) [Ratio] 12.9 % 11.5 - 15.0 % [facility] Hematocrit (Bld) [Volume fraction] 34.8 % Low 35.0 - 47.0 % [facility] Hemoglobin (Bld) [Mass/Vol] 11.0 g/dL Low 11.7 - 16.0 g/dL [facility] Immature granulocytes (Bld) [#/Vol] 0.0 10*3/uL NINF - 0.1 10*3/uL [facility] Immature granulocytes/100 WBC (Bld) 0.4 % 0.0 - 2.0 % [facility] Interpretation and review of laboratory results Abnormal [facility] Lymphocytes (Bld) [#/Vol] 1.3 10*3/uL 1.0 - 4.3 10*3/uL [facility] Lymphocytes/100 WBC (Bld) 11.5 % Low 15.0 - 45.0 % [facility] MCH (RBC) [Entitic mass] 30.2 pg 26. 0 - 34.0 pg [facility] MCHC (RBC) [Mass/Vol] 31.6 % 30.5 - 36.0 % [facility] MCV (RBC) [Entitic vol] 95.6 fL 77.0 - 99.0 fL [facility] Monocytes (Bld) [#/Vol] 0.7 10*3/uL 0.0 - 0.9 10*3/uL [facility] Monocytes/100 WBC (Bld) 6.0 % 5.0 - 13.0 % [facility] Neutrophils (Bld) [#/Vol] 8.2 10*3/uL High 1.8 - 7.5 10*3/uL [facility] Neutrophils/100 WBC (Bld) 74.6 % 38.0 - 82.0 % [facility] Nucleated RBC/100 WBC (Bld) [Ratio] 0.0 % [facility] Platelet mean volume (Bld) [Entitic vol] 9.4 fL 9.0 - 12.7 fL [facility] Platelets (Bld) [#/Vol] 243 10*3/uL 140 - 440 10*3/uL [facility] RBC (Bld) [#/Vol] 3.64 10*6/uL Low 3.80 - 5.2 0 10*6/uL [facility] WBC (Bld) [#/Vol] 10.9 10*3/uL High 3.6 - 10.7 10*3/uL [facility] Laboratory - Chemistry and C hemistry - challengeon 09-20-2023 Magnesium [Mass/Vol] 2.3 mg/dL 1.6 - 2 .3 mg/dL [facility] Troponin I.cardiac [Mass/Vol] 0.022 ng/mL NINF - 0.034 ng/mL [facility] Magnesium [Mass/Vol] 2.7 mg/dL High 1.6 - 2 .3 mg/dL [facility] Magnesium [Mass/Vol]on 09-19 Interpretation and review of laboratory results Normal [facility] Interpretation and review of laboratory results Abnormal [facility] Troponin I.cardiac [Mass/Vol ]on 09-20-2023 Interpretation and review of laboratory results Normal [facility] Patients with high levels of Biotin oral intake (ie >5 mg/day) may have falsely decreased Troponin levels. [facility] US Heart TransthoracicOrdere d By: Srini Vital on 09-20-2023 Ao Root Index 2.56 cm/m2 [facility] [employer] Work Phone: Aortic Root 4.0 cm [facility] [employer] Work Phone: Aortic Sinus Valsalva 4.0 cm [facility] [employer] Work Phone: Aortic Sinus Valsalva Index 2.56 cm/m2 [facility] [employer] Work Phone: E/E' Lateral 4.67 [facility] [employer] [address] Phone: E/E' Ratio (Averaged) 5.13 [facility] [employer] [address] Phone: E/E' Septal 5.60 [facility] [employer] [address] Phone: EF BP 65 % 55 - 100 % [facility] [employer] [address] Phone: Fractional Shortening 2D 27 % 28 - 44 % [facility] [employer] [address] Phone: Global Longitudinal Strain -18.1 % [facility] [employer] Work Phone: Interpretation and review of laboratory results Abnormal [facility] [employer] Work Phone: IVC Diameter 1.8 cm [facility] [employer] Work Phone: IVSd 1.0 cm Abnormal 0.6 - 0.9 cm [facility] [employer] Work Phone: LA Diameter 2.8 cm [facility] [employer] Work Phone: LA Size Index 1.79 cm/m2 [facility] [employer] Work Phone: LA Volume 2C 36 mL 22 - 52 mL [facility] [employer] Work Phone: LA Volume 4C 31 mL 22 - 52 mL [facility] [employer] Work Phone: LA Volume A/L 42 mL [facility] [employer] Work Phone: LA Volume BP 39 mL 22 - 52 mL [facility] [employer] Work Phone: LA Volume Index 2C 23 mL/m2 16 - 34 mL/m2 [facility] [employer] Work Phone: LA Volume Index 4C 20 mL/m2 16 - 34 mL/m2 [facility] [employer] Work Phone: LA Volume Index A/L 27 mL/m2 16 - 34 mL/m2 [facility] [employer] Work Phone: LA Volume Index BP 25 ml/m2 16 - 34 ml/m2 [facility] [employer] Work Phone: LA/AO Root Ratio 0.70 [facility] Work Phone: LV E' Lateral Velocity 12 cm/s [facility] [employer] Work Phone: LV E' Septal Velocity 10 cm/s [facility] [employer] Work Phone: LV EDV A2C 56 mL [facility] [employer] Work Phone: LV EDV A4C 60 mL [facility] [employer] Work Phone: LV EDV BP 60 mL 56 - 104 mL [facility] [employer] Work Phone: LV EDV Index A2C 36 mL/m2 [facility] Work Phone: LV EDV Index A4C 38 mL/m2 [facility] Work Phone: LV EDV Index BP 38 mL[facility]2 [facility] Work Phone: LV Ejection Fraction A2C 60 % [facility] Work Phone: LV Ejection Fraction A4C 70 % [facility] Work Phone: LV ESV A2C 22 mL [facility] Work Phone: LV ESV A4C 18 mL [facility] Work Phone: LV ESV BP 21 mL 19 - 49 mL [facility] Work Phone: LV ESV Index A2C 14 mL/m2 [facility] Work Phone: LV ESV Index A4C 12 mL/m2 [facility] Work Phone: LV ESV Index BP 13 mL/m2 [facility] Work Phone: LV Mass 2D 158.2 g 67 - 162 g [facility] Work Phone: LV Mass 2D Index 101.4 g/m2 Abnormal 43 - 95 g/m2 [facility] Work Phone: LV RWT Ratio 0.50 [facility] Work Phone: LVIDd 4.4 cm 3.9 - 5.3 cm [facility] Work Phone: LVIDd Index 2.82 cm/m2 [facility] Work Phone: LVIDs 3.2 cm [facility] Work Phone: LVIDs Index 2.05 cm/m2 [facility] Work Phone: LVOT Area 4.2 cm2 [facility] Work Phone: LVOT Cardiac Output 6.5 liter/minute [facility] Work Phone: LVOT Diameter 2.3 cm [facility] Work Phone: LVOT Mean Gradient 2 mmHg [facility] Work Phone: LVOT Peak Gradient 3 mmHg [facility] Work Phone: [phone] LVOT Peak Velocity 0.9 m/s [facility] [employer] Work Phone: [phone] LVOT Stroke Volume Index 50.3 mL/m2 [facility] [employer] Work Phone: [phone] LVOT SV 78.5 ml [facility] [employer] Work Phone: [phone] LVOT VTI 18.9 cm [facility] [employer] Work Phone: [phone] LVPWd 1.1 cm Abnormal 0.6 - 0.9 cm [facility] [employer] Work Phone: [phone] MV A Velocity 0.55 m/s [facility] [employer] Work Phone: [phone] MV E Velocity 0.56 m/s [facility] h Work Phone: [phone] MV E Wave Deceleration Time 192.4 ms [facility] [employer] Work Phone: [phone] MV E/A 1.02 [facility] [employer] Work Phone: [phone] RA Area 4C 28.3 mL [facility] [employer] Work Phone: [phone] RV Basal Dimension 2.7 cm [facility] [employer] Work Phone: [phone] RV Free [place] Peak S' 15 cm/s [facility] [employer] Work Phone: [phone] RV Longitudinal Dimension 5.0 cm [facility] [employer] Work Phone: RV Mid Dimension 2.4 cm [facility] Work Phone: [phone] Sinotubular Junction 3.4 cm [facility] [employer] Work Phone: [phone] TAPSE 1.9 cm 1.7 cm [facility] [employer] Work Phone: [phone] TR Max Velocity 2.90 m/s [facility] Work Phone: [phone] TR Peak Gradient 34 mmHg [facility] Work Phone: [phone] [facility] Work Phone: [phone] Heart Transthoracicon Left Ventricle: Left ventricle size [...] [#/Vol] 0.0 10*3/uL 0.0 - 0.2 10*3/uL [email or web address] Basophils/100 WBC (Bld) 0.2 % 0.0 - 2.0 % [email or web address] Eosinophils (Bld) [#/Vol] 0.3 10*3/uL 0.0 - 0.5 10*3/uL [facility] Eosinophils/100 WBC (Bld) 1.5 % 0.0 - 6.0 % [facility] Erythrocyte distribution width (RBC) [Ratio] 13.0 % 11.5 - 15.0 % [facility] Hematocrit (Bld) [Volume fraction] 39.6 % 35.0 - 47.0 % [facility] Hemoglobin (Bld) [Mass/Vol] 12.7 g/dL 11.7 - 16.0 g/dL [facility] Immature granulocytes (Bld) [#/Vol] 0.1 10*3/uL High NINF - 0.1 10*3/uL [facility] Immature granulocytes/100 WBC (Bld) 0.6 % 0.0 - 2.0 % [facility] Interpretation and review of laboratory results Abnormal [facility] Lymphocytes (Bld) [#/Vol] 1.3 10*3/uL 1.0 - 4.3 10*3/uL [facility] Lymphocytes/100 WBC (Bld) 6.5 % Low 15.0 - 45.0 % [facility] MCH (RBC) [Entitic mass] 30.4 pg 26. 0 - 34.0 pg [facility] MCHC (RBC) [Mass/Vol] 32.1 % 30.5 - 36.0 % [facility] MCV (RBC) [Entitic vol] 94.7 fL 77.0 - 99.0 fL [facility] Monocytes (Bld) [#/Vol] 1.0 10*3/uL High 0.0 - 0.9 10*3/uL [facility] Monocytes/100 WBC (Bld) 5.1 % 5.0 - 13.0 % [facility] Neutrophils (Bld) [#/Vol] 16.8 10*3/uL High 1.8 - 7.5 10*3/uL [facility] Neutrophils/100 WBC (Bld) 86.1 % High 38.0 - 82.0 % [facility] Nucleated RBC/100 WBC (Bld) [Ratio] 0.0 % [facility] Platelet mean volume (Bld) [Entitic vol] 9.3 fL 9.0 - 12.7 fL [facility] Platelets (Bld) [#/Vol] 339 10*3/uL 140 - 440 10*3/uL [facility] RBC (Bld) [#/Vol] 4.18 10*6/uL 3.80 - 5.2 0 10*6/uL [facility] WBC (Bld) [#/Vol] 19.5 10*3/uL High 3.6 - 10.7 10*3/uL [facility] CT Cervical spine WO contras ton 09-19-2023 [...] Electronically Signed Date/Time: 09/19/2023 6:[address] [email or web address] CT Head WO contraston 2023 No intracranial traumatic injuries. Report Dictated on Electronically Signed By: Brando Tejada MD Electronically Signed Date/Time: 09/19/2023 5:55 PM EDT [facility] Patient Name: GONZALO DELUCA : 1955 [...] banding. Clear paranasal sinuses. No calvarial fractures. [facility] Brando Tejada M D - 09/19/2023 [...] Electronically Signed Date/Time: 09/19/2023 5:[address] [email or web address] CT Head WO contrastOrdered B y: Brando Tejada on 09-19-2023 [email or web address] Work Phone: CT Thoracic spine WO contras [...] Date/Time: 09/19/2023 6:01 PM EDT [facility] Radiology Study observation (narrative) [facility] Comprehensive metabolic 1998 panelOrdered By: Mara Hale on 09-19-2023 Albumin [Mass/Vol] 3.9 g/dL 3.5 - 5.0 g/dL [facility] ALP [Catalytic activity/Vol] 115 U/L 38 - 126 U/L [facility] ALT [Catalytic activity/Vol] 38 U/L High 0 - 34 U/L [facility] Anion gap [Moles/Vol] 13 mmol/L 3 - 13 mmol/L [facility] AST [Catalytic activity/Vol] 35 U/L 15 - 46 U/L [facility] Bilirubin [Mass/Vol] 0.5 mg/dL 0.2 - 1 .3 mg/dL [facility] Calcium [Mass/Vol] 9.0 mg/dL 8.4 - 10. 4 mg/dL [facility] Chloride [Moles/Vol] 93 mmol/L Low 98 - 10 7 mmol/L [facility] CO2 [Moles/Vol] 35 mmol/L High 22 - 30 mmol/L [facility] Creatinine [Mass/Vol] 1.33 mg/dL High 0.52 - 1.04 mg/dL [facility] GFR/1.73 sq M.predicted MDRD (S/P/Bld) [Vol rate/Area] 44.2 mL/min/{1.73_m2} Low - PINF [facility] Comment on above: Calculation based on the Chronic Kidney Disease Epidemiology Collaboration (CKD-EPI) equation refit without adjustment for race Glucose [Mass/Vol] 99 mg/dL 70 - 100 mg/dL [facility] Interpretation and review of laboratory results Abnormal [facility] Potassium [Moles/Vol] 2.3 mmol/L Critically low 3.5 - 5.1 mmol/L [facility] Protein [Mass/Vol] 7.1 g/dL 6.3 - 8.2 g/dL [facility] Sodium [Moles/Vol] 140 mmol/L 135 - 145 mmol/L [facility] Urea nitrogen [Mass/Vol] 36 mg/dL High 7 - 17 mg/d L [facility] Laboratory - Chemistry and C hemistry - challengeon 09-19-2023 Troponin I.cardiac [Mass/Vol] 0.031 ng/mL [facility] - 0.034 ng/mL [facility] Troponin I.cardiac [Mass/Vol] 0.025 ng/mL [facility] - 0.034 ng/mL [facility] Laboratory - Chemistry and C hemistry - challengeOrdered By: Rosa Elena Puente on 09-19-2023 Base excess Calc (BldV) [Moles/Vol] 4.1 mmol/L High -3.0 - 3.0 mmol/L [facility] CO2 (BldV) [Partial pressure] 49.6 mm[Hg] [facility] [employer] CO2 [Moles/Vol] 31.4 mmol/L High 23.0 - 30.0 mmol/L [facility] [employer] HCO3 (Bld) [Moles/Vol] 29.9 mmol/L 21.0 - 30.0 mmol/L [facility] Oxygen (BldV) [Partial pressure] 50.1 mm[Hg] mm Hg [facility] [employer] pH (BldV) 7.398 [pH] 7.320 - 7.420 [facility] Laboratory - Hematology and Cell countsOrdered By: Rosa Elena Puente on 09-19-2023 Hemoglobin (Bld) [Mass/Vol] 13.4 g/dL Screen only [facility] [employer] No Panel InformationOrdered By: Rosa Elena Puente on 09-19-2023 Interpretation and review of laboratory results Abnormal [facility] Source Of Oxygen Nasal cannula [facility] Assessment of oxygenation is best done with an arterial blood gas determination. Reference ranges for pO2, bicarbonate, and base excess are for mixed venous blood. Specimens drawn from a peripheral vein will often have higher values. [facility] [employer] No Panel Informationon 09-18 P [place] 25 degrees [facility] [place] Interval 140 ms [facility] QRS [place] -48 degrees [facility] [employer] QRSD Interval [facility] 468 ms [facility] QTC Interval 594 ms [facility] [employer] T Wave [place] 0 degrees [facility] Sinus rhythm Inferior infarct, old Prolonged QT interval No significant changes compared to previous Electronically Signed On 09-19-2023 18:04:00 EDT by Jono Weathers CV Jono Viramontes MD - 09/19/2023 IMPRESSION: Sinus rhythm Inferior infarct, old Prolonged QT interval No significant changes compared to previous Electronically Signed On 09-19-2023 18:04:00 EDT by Jono Weathers [facility] Impression: No acute osseous abnormality. Nonspecific sclerotic [...] MD Electronically Signed Date/Time: 09/19/2023 6:01 PM [facility] RADIOLOG[facility] Radiographic feature s suggestive of COPD. Compression [...] MD Electronically Signed Date/Time: 09/19/2023 5:26 PM [facility] Radiology Study observation (narrative) [facility] alth No Panel InformationOrdered By: Clark Duffy on 09-19-2023 [facility] Work Phone: Troponin I.cardiac [Mass/Vol ]on 09-19-2023 Interpretation and review of laboratory results Normal [facility] Patients with high levels of Biotin oral intake (ie >5 mg/day) may have falsely decreased Troponin levels. [facility] Interpretation and review of laboratory results Normal [facility] Patients with high levels of Biotin oral intake (ie >5 mg/day) may have falsely decreased Troponin levels. [facility] Urinalysis complete panel (U )Ordered By: Chrissy Alexandra on 09-19-2023 Bacteria LM.HPF (Urine sed) [#/Area] Negative Negative /HPF [facility] Bilirubin Ql (U) Negative Negative mg/dL [facility] Clarity (U) Clear Clear [facility] Color (U) Yellow Lt. Yellow [facility] Epithelial cells.squamous LM.HPF (Urine sed) [#/Area] 0-2 [facility] h Glucose Ql (U) Normal Normal (<70) mg/dL [facility] Hemoglobin Ql (U) Negative Negative mg/dL [facility] Hyaline casts Auto (Urine sed) [#/Area] 3-5 Abnormal Negative /LPF [facility] Interpretation and review of laboratory results Abnormal [facility] Ketones (U) [Mass/Vol] Negative Negat kenton mg/dL [facility] Leukocyte esterase Test strip Ql (U) Negative Negative Sandra/uL [facility] Mucus LM.HPF (Urine sed) [#/Area] Few Negative /LPF [facility] Nitrite Ql (U) Negative Negative [facility] th Non-Squamous Epithalial Cells, Urine 0-2 Abnormal Negative /HPF [facility] pH (U) 5.5 [pH] 5.0 - 8.0 pH [facility] Protein (U) [Mass/Vol] 20 mg/dL Abnormal Negative [facility] RBC LM.HPF (Urine sed) [#/Area] 0-2 [facility] Specific gravity (U) [Rel density] 1.018 1.005 - 1.030 [facility] Urobilinogen (U) [Mass/Vol] Normal Normal (0-1) mg/dL [facility] WBC LM.HPF (Urine sed) [#/Area] 3-5 [facility] Vital signsOrdered By: Rosa Elena Puente on 09-19-2023 Oxygen saturation in Venous blood 85.8 % [facility] Vital signson 09-19-2023 Heart rate 97 /min bpm [facility] XR Chest 2 Viewson Patient Name: GONZALO [...] Date/Time: 09/19/2023 5:26 PM EDT [facility] Radiology Study observation (narrative) Abe German alth XR Pelvis 1 or 2 Viewson [...] in the midthoracic region with thoracic kyphosis. [facility] Clark Duffy MD - 09/19/2023 Patient [...] Date/Time: 09/19/2023 5:26 PM EDT [facility] Radiology Study observation (narrative) Abe paz DARIANOVon 09-08-2023 CNOV Office Visit (FAMDNA ) GONZALO DELUCA ([id number]) 1955 F Date Time Provider Department 09/08/23 [...] Mirtazapine (REMER (more content not included)... Normal [facility] Helen 09-06-2023 ANUEL Telephone ([facility]) MARIA EGONZALO LEBLANC ([id number]) 1955 F Date Time Provider Department 09/06/23 HERMINIA CASE During your visit today, we recorded the following information about you: Lala Shelley 09/06/2023 12:30 PM Signed Gonzalo is calling Herminia Case MD today with concern regarding Electronic Communication (FAX from [facility] is going to be coming over that needs to be faxed back to them ) Patient has been identified by name and birthdate. Duration of symptoms: N/A Person calling: self daughter: Karishma Call patient at: at home [phone] (home) [phone] (cell) Was an appointment scheduled: No Closing statement: Results or non-symptom based questions: Thank you for calling [facility], your call will be returned within the next business day. Whit Turner LPN 09/07/2023 9:05 AM Signed LM for patient letting her know we have not received the form from [facility]. Whit Shay LPN Allergies As of Date: 09/06/2023 Noted Allergy Reaction SEASONAL ALLERGIES 08/16/2017 5 - Intolerance Date Reviewed: 05/02/2023 Reviewed by: Whit Shay LPN - Fully Assessed Reason for Visit: Electronic Communication [890] Cmt: FAX from [facility] is going to be coming [...] Status:Closed by WHIT SHAY on 09/07/23 Normal [facility] CBC W Auto Differential pane l (Bld)on 08-07-2023 Basophils (Bld) [#/Vol] 0.0 10*3/uL 0.0 - 0.2 10*3/uL [facility] Basophils/100 WBC (Bld) 0.3 % 0.0 - 2.0 % [facility] Eosinophils (Bld) [#/Vol] 0.1 10*3/uL 0.0 - 0.5 10*3/uL [facility] Eosinophils/100 WBC (Bld) 0.8 % 0.0 - 6.0 % [facility] Erythrocyte distribution width (RBC) [Ratio] 12.6 % 11.5 - 15.0 % [facility] Hematocrit (Bld) [Volume fraction] 39.2 % 35.0 - 47.0 % [facility] Hemoglobin (Bld) [Mass/Vol] 12.6 g/dL 11.7 - 16.0 g/dL [facility] Immature granulocytes (Bld) [#/Vol] 0.1 10*3/uL High NINF - 0.1 10*3/uL [facility] Immature granulocytes/100 WBC (Bld) 0.5 % 0.0 - 2.0 % [facility] Interpretation and review of laboratory results Abnormal [facility] Lymphocytes (Bld) [#/Vol] 1.0 10*3/uL 1.0 - 4.3 10*3/uL [facility] Lymphocytes/100 WBC (Bld) 9.6 % Low 15.0 - 45.0 % [facility] MCH (RBC) [Entitic mass] 30.9 pg 26. 0 - 34.0 pg [facility] MCHC (RBC) [Mass/Vol] 32.1 % 30.5 - 36.0 % [facility] MCV (RBC) [Entitic vol] 96.1 fL 77.0 - 99.0 fL [facility] Monocytes (Bld) [#/Vol] 1.3 10*3/uL High 0.0 - 0.9 10*3/uL [facility] Monocytes/100 WBC (Bld) 12.9 % 5.0 - 13.0 % [facility] Neutrophils (Bld) [#/Vol] 7.8 10*3/uL High 1.8 - 7.5 10*3/uL [facility] Neutrophils/100 WBC (Bld) 75.9 % 38.0 - 82.0 % [facility] Nucleated RBC/100 WBC (Bld) [Ratio] 0.0 % [facility] Platelet mean volume (Bld) [Entitic vol] 9.8 fL 9.0 - 12.7 fL [facility] Platelets (Bld) [#/Vol] 351 10*3/uL 140 - 440 10*3/uL [facility] RBC (Bld) [#/Vol] 4.08 10*6/uL 3.80 - 5.2 0 10*6/uL [facility] WBC (Bld) [#/Vol] 10.3 10*3/uL 3.6 - 10.7 10*3/uL [facility] COVID-19, Flu A/B, and RSV C omboon 08-07-2023 Interpretation and review of laboratory results Normal [facility] Comprehensive metabolic 1998 panelon 08-07-2023 Albumin [Mass/Vol] 4.0 g/dL 3.5 - 5.0 g/dL [facility] ALP [Catalytic activity/Vol] 282 U/L High 38 - 126 U/L [facility] ALT [Catalytic activity/Vol] 47 U/L High 0 - 34 U/L [facility] Anion gap [Moles/Vol] 11 mmol/L 3 - 13 mmol/L [facility] AST [Catalytic activity/Vol] 62 U/L High 15 - 46 U/L [facility] Bilirubin [Mass/Vol] 1.1 mg/dL 0.2 - 1 .3 mg/dL [facility] Calcium [Mass/Vol] 9.2 mg/dL 8.4 - 10. 4 mg/dL [facility] Chloride [Moles/Vol] 96 mmol/L Low 98 - 10 7 mmol/L [facility] CO2 [Moles/Vol] 35 mmol/L High 22 - 30 mmol/L [facility] Creatinine [Mass/Vol] 0.57 mg/dL 0.52 - 1.04 mg/dL [facility] GFR/1.73 sq M.predicted MDRD (S/P/Bld) [Vol rate/Area] - PINF [facility] Comment on above: Calculation based on the Chronic Kidney Disease Epidemiology Collaboration (CKD-EPI) equation refit without adjustment for race Glucose [Mass/Vol] 119 mg/dL High 70 - 100 mg/dL [facility] Interpretation and review of laboratory results Abnormal [facility] Potassium [Moles/Vol] 3.1 mmol/L Low 3.5 - 5.1 mmol/L [facility] Protein [Mass/Vol] 7.9 g/dL 6.3 - 8.2 g/dL [facility] Sodium [Moles/Vol] 142 mmol/L 135 - 145 mmol/L [facility] Urea nitrogen [Mass/Vol] 10 mg/dL 7 - 17 mg/d L [facility] CHEMISTRY SPECIMEN MODERATELY HEMOLYZED; INTERPRET WITH CAUTION! [facility] Laboratory - Chemistry and C hemistry - challengeon 08-07-2023 Lactate [Moles/Vol] 2.0 mmol/L 0.7 - 2. 0 mmol/L [facility] Laboratory - Microbiology an d Antimicrobial susceptibilityon 08-07-2023 FLUAV RNA MILANA+probe Ql (Resp) Not detected Not Detected [facility] FLUBV RNA MILANA+probe Ql (Resp) Not detected Not Detected [facility] RSV RNA MILANA+probe Ql (Resp) Not detected Not Detected [facility] SARS-CoV-2 (COVID-19) RNA MILANA+probe Ql (Resp) Not detected Not Detected [facility] alth SARS-CoV-2 (COVID-19) RNA MILANA+probe Ql (Unsp spec) Methodology: real-time, RT-PCR The SARS-CoV-2, Flu A/B, and RSV Combo assay is intended for in vitro diagnostic use under the FDA Emergency Use Authorization (EUA). This test has not been FDA cleared or approved. In compliance with this authorization, please visit www.fda.gov/media/1429 35/download or www.fda.gov/media/1425 36/download to access the applicable information sheets. [facility] No Panel Informationon 08-06 Interpretation and review of laboratory results Normal [facility] P [place] 38 degrees [facility] TN Interval 137 ms [facility] QRS [place] -35 degrees [facility] QRSD Interval 95 ms [facility] Interval 246 ms [facility] QTC Interval 299 ms [facility] T Wave [place] 0 degrees [facility] Sinus rhythm Inferior infarct, old Electronically Signed On 08-07-2023 15:06:03 EDT by Lorenzo Orozco CV Lorezno Cheng MD - 08/07/2023 IMPRESSION: Sinus rhythm Inferior infarct, old Electronically Signed On 08-07-2023 15:06:03 EDT by Lorenzo Orozco [facility] Vital signson 08-07-2023 Heart rate 89 /min bpm [facility] XR Chest Single viewon 08-06 1. Lines/Tubes/Devices/Allen [...] By: Ramses aGmble MD Electronically Signed Date/Time: 08/07/2023 4:05 PM [...] was obtained and reviewed. Special views: None. [facility] Ramses Gamble MD - 08/07/2023 Patient [...] Date/Time: 08/07/2023 4:05 PM EDT [facility] Radiology Study observation (narrative) [facility] XR Chest Single viewOrdered By: Ramses Gamble on 08-07-2023 [facility] Work Phone: TOX SCREEN ROUT URon 024 Amphetamines Confirm (U) [Mass/Vol] Negative Negative [facility] Barbiturates Urine Negative Negative [facility] Benzodiazepines Urine Negative Negative [facility] Cannabinoids Screen Ql (U) Positive Abnormal Negative [facility] Cocaine Ql (U) Negative Negative [facility] Ethanol (U) [Mass/Vol] <11 mg/dL [facility] Opiates Screen Ql (U) Negative Negative [facility] oxyCODONE cutoff Screen (U) [Mass/Vol] Positive Abnormal Negative [facility] Phencyclidine Ql (U) Negative Negative [facility] Basic metabolic 1998 panelon 02-18-2023 Anion gap [Moles/Vol] 5 mmol/L 3 - 13 mmol/L [facility] Calcium [Mass/Vol] 8.2 mg/dL Low 8.4 - 10. 4 mg/dL [facility] Chloride [Moles/Vol] 107 mmol/L 98 - 10 7 mmol/L [facility] CO2 [Moles/Vol] 28 mmol/L 22 - 30 mmol/L [facility] Creatinine [Mass/Vol] 0.55 mg/dL 0.52 - 1.04 mg/dL [facility] GFR/1.73 sq M.predicted MDRD (S/P/Bld) [Vol rate/Area] - PINF [facility] Comment on above: Calculation based on the Chronic Kidney Disease Epidemiology Collaboration (CKD-EPI) equation refit without adjustment for race Glucose [Mass/Vol] 113 mg/dL High 70 - 100 mg/dL [facility] Interpretation and review of laboratory results Abnormal [facility] Potassium [Moles/Vol] 3.8 mmol/L 3.5 - 5.1 mmol/L [facility] Sodium [Moles/Vol] 140 mmol/L 135 - 145 mmol/L [facility] Urea nitrogen [Mass/Vol] 14 mg/dL 7 - 17 mg/d L [facility] CBC W Auto Differential pane l (Bld)Ordered By: Yair Sanchez on 02-18-2023 Basophils (Bld) [#/Vol] 0.0 10*3/uL 0.0 - 0.2 10*3/uL [facility] Basophils/100 WBC (Bld) 0.7 % 0.0 - 2.0 % [facility] Eosinophils (Bld) [#/Vol] 0.4 10*3/uL 0.0 - 0.5 10*3/uL [facility] Eosinophils/100 WBC (Bld) 7.3 % High 1.0 - 6.0 % [facility] Erythrocyte distribution width (RBC) [Ratio] 14.0 % 11.5 - 14.5 % [facility] Hematocrit (Bld) [Volume fraction] 30.7 % Low 35.0 - 47.0 % [facility] Hemoglobin (Bld) [Mass/Vol] 10.0 g/dL Low 11.7 - 16.0 g/dL [facility] Interpretation and review of laboratory results Abnormal [facility] Lymphocytes (Bld) [#/Vol] 0.8 10*3/uL Low 1.0 - 4.3 10*3/uL [facility] Lymphocytes/100 WBC (Bld) 15.3 % Low 20.0 - 40.0 % [facility] MCH (RBC) [Entitic mass] 31.1 pg 26. 0 - 34.0 pg [facility] MCHC (RBC) [Mass/Vol] 32.7 % 32.0 - 36.0 % [facility] MCV (RBC) [Entitic vol] 95.1 fL 80.0 - 98.0 fL [facility] Monocytes (Bld) [#/Vol] 0.4 10*3/uL 0.0 - 0.8 10*3/uL [facility] Monocytes/100 WBC (Bld) 8.6 % 2.0 - 10.0 % [facility] Neutrophils (Bld) [#/Vol] 3.5 10*3/uL 1.8 - 7.0 10*3/uL [facility] Neutrophils/100 WBC (Bld) 68.1 % 40.0 - 80.0 % [facility] Nucleated RBC/100 WBC (Bld) [Ratio] 0.0 % [facility] Platelet mean volume (Bld) [Entitic vol] 7.3 fL Low 7.4 - 12.4 fL [facility] Platelets (Bld) [#/Vol] 178 10*3/uL 140 - 440 10*3/uL [facility] RBC (Bld) [#/Vol] 3.23 10*6/uL Low 3.8 - 5.20 10*6/uL [facility] WBC (Bld) [#/Vol] 5.1 10*3/uL 3.6 - 10.7 10*3/uL [facility] - Microbiology an d Antimicrobial susceptibilityOrdered By: Savanna Cerrato on 02-18-2023 SARS-CoV-2 (COVID-19) Ag IA.rapid Ql (Resp) Negative Negative [facility] Comment on above: A negative result do es not rule out the possibility of SARS-CoV-2 infection. NAAT-based methods should be considered for symptomatic patients presenting greater than seven days after onset of symptoms. Method: Lateral flow immunoassay. Fact sheets for healthcare providers and patients can be found at the following sites: https://www.fda.gov/media/259389/download https://www.fda.gov/media/716572/download SARS-CoV-2 (COVID-19) Ag IA. rapid Ql (Resp)Ordered By: Savanna Cerrato on 02-18-2023 Interpretation and review of laboratory results Normal [facility] Basic metabolic 1998 panelon 02-17-2023 Anion gap [Moles/Vol] 7 mmol/L 3 - 13 mmol/L [facility] Calcium [Mass/Vol] 8.5 mg/dL 8.4 - 10. 4 mg/dL [facility] Chloride [Moles/Vol] 106 mmol/L 98 - 10 7 mmol/L [facility] CO2 [Moles/Vol] 28 mmol/L 22 - 30 mmol/L [facility] Creatinine [Mass/Vol] 0.49 mg/dL Low 0.52 - 1.04 mg/dL [facility] GFR/1.73 sq M.predicted MDRD (S/P/Bld) [Vol rate/Area] - PINF [facility] Comment on above: Calculation based on the Chronic Kidney Disease Epidemiology Collaboration (CKD-EPI) equation refit without adjustment for race Glucose [Mass/Vol] 115 mg/dL High 70 - 100 mg/dL [facility] Interpretation and review of laboratory results Abnormal [facility] Potassium [Moles/Vol] 3.7 mmol/L 3.5 - 5.1 mmol/L [facility] Sodium [Moles/Vol] 141 mmol/L 135 - 145 mmol/L [facility] Urea nitrogen [Mass/Vol] 14 mg/dL 7 - 17 mg/d L [facility] NM Bone Limited Viewson 01-21 Moderately intense tracer uptake within the L4 [...] indeterminate. Report Dictated on Electronically Signed By: Dave Farmer MD Electronically Signed Date/Time: 02/17/2023 4:36 PM [facility] Name[facility]ON[facility]AL[facility] 1955 [id number] Exam Date/Time: 02/17/2023 10:41 Procedure: NM BONE [...] the lumbar spine. [facility] Dave Farmer MD - 02/17/2023 Patient Name: GONZALO [facility]CA [facility] 1955 [id number] Exam Date/Time: 02/17/2023 10:41 Procedure: NM BONE [...] indeterminate. Report Dictated on Electronically Signed By: Dave Farmer MD Electronically Signed Date/Time: 02/17/2023 4:36 PM EST [facility] Radiology Study observation (narrative) [facility] NM Bone Limited ViewsOrdered By: Dave Farmer on 02-17-2023 [facility] Basic metabolic 1998 panelon 02-16-2023 Anion gap [Moles/Vol] 2 mmol/L Low 3 - 13 mmol/L [facility] Calcium [Mass/Vol] 8.3 mg/dL Low 8.4 - 10. 4 mg/dL [facility] Chloride [Moles/Vol] 105 mmol/L 98 - 10 7 mmol/L [facility] CO2 [Moles/Vol] 32 mmol/L High 22 - 30 mmol/L [facility] Creatinine [Mass/Vol] 0.58 mg/dL 0.52 - 1.04 mg/dL [facility] GFR/1.73 sq M.predicted MDRD (S/P/Bld) [Vol rate/Area] - PINF [facility] Comment on above: Calculation based on the Chronic Kidney Disease Epidemiology Collaboration (CKD-EPI) equation refit without adjustment for race Glucose [Mass/Vol] 117 mg/dL High 70 - 100 mg/dL [facility] Interpretation and review of laboratory results Abnormal [facility] Potassium [Moles/Vol] 3.3 mmol/L Low 3.5 - 5.1 mmol/L [facility] Sodium [Moles/Vol] 139 mmol/L 135 - 145 mmol/L [facility] Urea nitrogen [Mass/Vol] 16 mg/dL 7 - 17 mg/d L [facility] - Chemistry and C hemistry - challengeon 02-16-2023 Magnesium [Mass/Vol] 1.9 mg/dL 1.6 - 2 .3 mg/dL [facility] Magnesium [Mass/Vol]on 02-16 Interpretation and review of laboratory results Normal [facility] Basic metabolic 1998 panelon 02-15-2023 Anion gap [Moles/Vol] 6 mmol/L 3 - 13 mmol/L [facility] Calcium [Mass/Vol] 8.4 mg/dL 8.4 - 10. 4 mg/dL [facility] Chloride [Moles/Vol] 104 mmol/L 98 - 10 7 mmol/L [facility] CO2 [Moles/Vol] 28 mmol/L 22 - 30 mmol/L [facility] Creatinine [Mass/Vol] 0.52 mg/dL 0.52 - 1.04 mg/dL [facility] GFR/1.73 sq M.predicted MDRD (S/P/Bld) [Vol rate/Area] - PINF [facility] Comment on above: Calculation based on the Chronic Kidney Disease Epidemiology Collaboration (CKD-EPI) equation refit without adjustment for race Glucose [Mass/Vol] 91 mg/dL 70 - 100 mg/dL [facility] Interpretation and review of laboratory results Abnormal [facility] Potassium [Moles/Vol] 3.2 mmol/L Low 3.5 - 5.1 mmol/L [facility] Sodium [Moles/Vol] 138 mmol/L 135 - 145 mmol/L [facility] Urea nitrogen [Mass/Vol] 15 mg/dL 7 - 17 mg/d L [facility] CBC panel Auto (Bld)Ordered By: Rosa Ruiz on 02-15-2023 Erythrocyte distribution width (RBC) [Ratio] 13.8 % 11.5 - 14.5 % [facility] Hematocrit (Bld) [Volume fraction] 31.2 % Low 35.0 - 47.0 % [facility] Hemoglobin (Bld) [Mass/Vol] 10.6 g/dL Low 11.7 - 16.0 g/dL [facility] Interpretation and review of laboratory results Abnormal [facility] MCH (RBC) [Entitic mass] 31.5 pg 26. 0 - 34.0 pg [facility] MCHC (RBC) [Mass/Vol] 33.9 % 32.0 - 36.0 % [facility] MCV (RBC) [Entitic vol] 92.9 fL 80.0 - 98.0 fL [facility] Platelet mean volume (Bld) [Entitic vol] 7.7 fL 7.4 - 12.4 fL [facility] Platelets (Bld) [#/Vol] 163 10*3/uL 140 - 440 10*3/uL [facility] RBC (Bld) [#/Vol] 3.36 10*6/uL Low 3.8 - 5.20 10*6/uL [facility] WBC (Bld) [#/Vol] 5.2 10*3/uL 3.6 - 10.7 10*3/uL [facility] - Chemistry and C hemistry - challengeon 02-15-2023 Magnesium [Mass/Vol] 1.9 mg/dL 1.6 - 2 .3 mg/dL [facility] Magnesium [Mass/Vol]on 02-15 Interpretation and review of laboratory results Normal [facility] 25-hydroxyvitamin D3 [Mass/V ol]on 02-14-2023 Interpretation and review of laboratory results Normal [facility] Therapy is based on measurement of Total 25-OHD with the following classification levels: Less than 20 ng/mL: Indicative of Vit D deficiency 20-30 ng/mL: Suggests Vit D insufficiency Optimal: Greater than or equal to 30 ng/mL Test performed by [employer] Competitive Immunoassay, measuring Total Vitamin D, not individual fractions. [facility] - Chemistry and C hemistry - challengeon 02-14-2023 25-hydroxyvitamin D3 [Mass/Vol] 37 ng/mL 30 - 100 ng/mL [facility] Basic metabolic 1998 panelon 02-13-2023 Anion gap [Moles/Vol] 7 mmol/L 3 - 13 mmol/L [facility] Calcium [Mass/Vol] 9.1 mg/dL 8.4 - 10. 4 mg/dL [facility] Chloride [Moles/Vol] 98 mmol/L 98 - 10 7 mmol/L [facility] CO2 [Moles/Vol] 32 mmol/L High 22 - 30 mmol/L [facility] Creatinine [Mass/Vol] 0.50 mg/dL Low 0.52 - 1.04 mg/dL [facility] GFR/1.73 sq M.predicted MDRD (S/P/Bld) [Vol rate/Area] - PINF [facility] Comment on above: Calculation based on the Chronic Kidney Disease Epidemiology Collaboration (CKD-EPI) equation refit without adjustment for race Glucose [Mass/Vol] 96 mg/dL 70 - 100 mg/dL [facility] Interpretation and review of laboratory results Abnormal [facility] Potassium [Moles/Vol] 3.7 mmol/L 3.5 - 5.1 mmol/L [facility] Sodium [Moles/Vol] 137 mmol/L 135 - 145 mmol/L [facility] Urea nitrogen [Mass/Vol] 13 mg/dL 7 - 17 mg/d L [facility] CBC W Auto Differential pane l (Bld)Ordered By: Kina Valverde on 02-13-2023 Basophils (Bld) [#/Vol] 0.0 10*3/uL 0.0 - 0.2 10*3/uL [facility] Basophils/100 WBC (Bld) 0.3 % 0.0 - 2.0 % [facility] Eosinophils (Bld) [#/Vol] 0.1 10*3/uL 0.0 - 0.5 10*3/uL [facility] Eosinophils/100 WBC (Bld) 0.9 % Low 1.0 - 6.0 % [facility] Erythrocyte distribution width (RBC) [Ratio] 13.8 % 11.5 - 14.5 % [facility] Hematocrit (Bld) [Volume fraction] 36.2 % 35.0 - 47.0 % [facility] Hemoglobin (Bld) [Mass/Vol] 11.9 g/dL 11.7 - 16.0 g/dL [facility] Interpretation and review of laboratory results Abnormal [facility] Lymphocytes (Bld) [#/Vol] 0.7 10*3/uL Low 1.0 - 4.3 10*3/uL [facility] Lymphocytes/100 WBC (Bld) 6.4 % Low 20.0 - 40.0 % [facility] MCH (RBC) [Entitic mass] 30.7 pg 26. 0 - 34.0 pg [facility] MCHC (RBC) [Mass/Vol] 32.7 % 32.0 - 36.0 % [facility] MCV (RBC) [Entitic vol] 93.9 fL 80.0 - 98.0 fL [facility] Monocytes (Bld) [#/Vol] 0.4 10*3/uL 0.0 - 0.8 10*3/uL [facility] Monocytes/100 WBC (Bld) 3.7 % 2.0 - 10.0 % [facility] Neutrophils (Bld) [#/Vol] 9.9 10*3/uL High 1.8 - 7.0 10*3/uL [facility] Neutrophils/100 WBC (Bld) 88.7 % High 40.0 - 80.0 % [facility] Nucleated RBC/100 WBC (Bld) [Ratio] 0.0 % [facility] Platelet mean volume (Bld) [Entitic vol] 7.3 fL Low 7.4 - 12.4 fL [facility] Platelets (Bld) [#/Vol] 212 10*3/uL 140 - 440 10*3/uL [facility] RBC (Bld) [#/Vol] 3.86 10*6/uL 3.8 - 5.20 10*6/uL [facility] WBC (Bld) [#/Vol] 11.1 10*3/uL High 3.6 - 10.7 10*3/uL [facility] XR Lumbar spine 2 or 3 Views on 02-13-2023 1. Multilevel, possible insufficiency compressive changes in the L2-L4 levels, mild and new in the L2 and L4 levels and moderate in the L3 level, similar to comparison. No other, acute osseous abnormality. 2. Degenerative change. Report Dictated on Electronically Signed By: Gianni Avila MD Electronically Signed Date/Time: 02/13/2023 8:25 PM EST [facility] [employer] [facility] Patient Name: GONZALO DELUCA : 1955 [...] Paraspinal soft tissues grossly unremarkable. [facility] [employer] [facility] Gianni Avila MD - 02/13/2023 Patient [...] MD Electronically Signed Date/Time: 02/13/2023 8:[address] [facility] Radiology Study observation (narrative) [facility] XR Shoulder - left 2 Viewson 02-13-2023 1. No acute osseous abnormality. 2. Remote posttraumatic and mild degenerative change. Report Dictated on Electronically Signed By: Gianni Avila MD Electronically Signed Date/Time: 02/13/2023 8:17 PM [employer] Patient Name: [facility]ONZALO [facility]CA [facility] 1955 [id number] Exam Date/Time: 02/13/2023 20:13 Procedure: XR SHOULDER [...] tissues grossly unremarkable. Left-sided portacatheter again noted. [facility] [employer] [employer] Gianni Avila MD - 02/13/2023 [facility] Name[facility]ON[facility] 1955 [id number] Ex[facility] Date/Time: 02/13/2023 20:13 Procedure: XR SHOULDER [...] Date/Time: 02/13/2023 8:17 PM EST [facility] Radiology Study observation (narrative) [facility] alth XR Shoulder - left 2 ViewsOr dered By: Gianni Avila on 02-13-2023 [facility] Work Phone: Basic metabolic 1998 panelon 11-08-2022 Anion gap [Moles/Vol] 3 mmol/L 3 - 13 mmol/L [facility] Calcium [Mass/Vol] 8.1 mg/dL Low 8.4 - 10. 4 mg/dL [facility] Chloride [Moles/Vol] 105 mmol/L 98 - 10 7 mmol/L [facility] CO2 [Moles/Vol] 27 mmol/L 22 - 30 mmol/L [facility] Creatinine [Mass/Vol] 0.65 mg/dL 0.52 - 1.04 mg/dL [facility] GFR/1.73 sq M.predicted MDRD (S/P/Bld) [Vol rate/Area] - PINF [facility] Comment on above: Calculation based on the Chronic Kidney Disease Epidemiology Collaboration (CKD-EPI) equation refit without adjustment for race Glucose [Mass/Vol] 142 mg/dL High 70 - 100 mg/dL [facility] Interpretation and review of laboratory results Abnormal [facility] Potassium [Moles/Vol] 4.1 mmol/L 3.5 - 5.1 mmol/L [facility] Sodium [Moles/Vol] 136 mmol/L 135 - 145 mmol/L [facility] Urea nitrogen [Mass/Vol] 19 mg/dL High 7 - 17 mg/d L [facility] CBC W Auto Differential pane l (Bld)Ordered By: Rolando Shelton on 11-08-2022 Basophils (Bld) [#/Vol] 0.1 10*3/uL 0.0 - 0.2 10*3/uL [facility] Basophils/100 WBC (Bld) 0.7 % 0.0 - 2.0 % [facility] Eosinophils (Bld) [#/Vol] 0.0 10*3/uL 0.0 - 0.5 10*3/uL [facility] Eosinophils/100 WBC (Bld) 0.0 % Low 1.0 - 6.0 % [facility] Erythrocyte distribution width (RBC) [Ratio] 14.7 % High 11.5 - 14.5 % [facility] Hematocrit (Bld) [Volume fraction] 29.9 % Low 35.0 - 47.0 % [facility] Hemoglobin (Bld) [Mass/Vol] 10.3 g/dL Low 11.7 - 16.0 g/dL [facility] Interpretation and review of laboratory results Abnormal [facility] Lymphocytes (Bld) [#/Vol] 0.5 10*3/uL Low 1.0 - 4.3 10*3/uL [facility] Lymphocytes/100 WBC (Bld) 5.5 % Low 20.0 - 40.0 % [facility] MCH (RBC) [Entitic mass] 32.0 pg 26. 0 - 34.0 pg [facility] MCHC (RBC) [Mass/Vol] 34.5 % 32.0 - 36.0 % [facility] MCV (RBC) [Entitic vol] 92.8 fL 80.0 - 98.0 fL [facility] Monocytes (Bld) [#/Vol] 0.6 10*3/uL 0.0 - 0.8 10*3/uL [facility] Monocytes/100 WBC (Bld) 6.8 % 2.0 - 10.0 % [facility] Neutrophils (Bld) [#/Vol] 7.9 10*3/uL High 1.8 - 7.0 10*3/uL [facility] Neutrophils/100 WBC (Bld) 87.0 % High 40.0 - 80.0 % [facility] Nucleated RBC/100 WBC (Bld) [Ratio] 0.0 % [facility] Platelet mean volume (Bld) [Entitic vol] 7.6 fL 7.4 - 12.4 fL [facility] Platelets (Bld) [#/Vol] 182 10*3/uL 140 - 440 10*3/uL [facility] RBC (Bld) [#/Vol] 3.23 10*6/uL Low 3.8 - 5.20 10*6/uL [facility] WBC (Bld) [#/Vol] 9.1 10*3/uL 3.6 - 10.7 10*3/uL [facility] Basic metabolic 1998 panelon 11-07-2022 Anion gap [Moles/Vol] 0 mmol/L Low 3 - 13 mmol/L [facility] Calcium [Mass/Vol] 8.3 mg/dL Low 8.4 - 10. 4 mg/dL [facility] Chloride [Moles/Vol] 106 mmol/L 98 - 10 7 mmol/L [facility] CO2 [Moles/Vol] 29 mmol/L 22 - 30 mmol/L [facility] Creatinine [Mass/Vol] 0.71 mg/dL 0.52 - 1.04 mg/dL [facility] GFR/1.73 sq M.predicted MDRD (S/P/Bld) [Vol rate/Area] - PINF [facility] Comment on above: Calculation based on the Chronic Kidney Disease Epidemiology Collaboration (CKD-EPI) equation refit without adjustment for race Glucose [Mass/Vol] 96 mg/dL 70 - 100 mg/dL [facility] Interpretation and review of laboratory results Abnormal [facility] Potassium [Moles/Vol] 3.8 mmol/L 3.5 - 5.1 mmol/L [facility] Sodium [Moles/Vol] 135 mmol/L 135 - 145 mmol/L [facility] Urea nitrogen [Mass/Vol] 14 mg/dL 7 - 17 mg/d L [facility] Slightly Hemolyzed [facility] CBC W Auto Differential pane l (Bld)Ordered By: Hakeem Cruz on 11-07-2022 Basophils (Bld) [#/Vol] 0.0 10*3/uL 0.0 - 0.2 10*3/uL [facility] Basophils/100 WBC (Bld) 0.4 % 0.0 - 2.0 % [facility] Eosinophils (Bld) [#/Vol] 0.5 10*3/uL 0.0 - 0.5 10*3/uL [facility] Eosinophils/100 WBC (Bld) 7.5 % High 1.0 - 6.0 % [facility] Erythrocyte distribution width (RBC) [Ratio] 14.8 % High 11.5 - 14.5 % [facility] Hematocrit (Bld) [Volume fraction] 33.8 % Low 35.0 - 47.0 % [facility] Hemoglobin (Bld) [Mass/Vol] 11.2 g/dL Low 11.7 - 16.0 g/dL [facility] Interpretation and review of laboratory results Abnormal [facility] Lymphocytes (Bld) [#/Vol] 0.7 10*3/uL Low 1.0 - 4.3 10*3/uL [facility] Lymphocytes/100 WBC (Bld) 12.2 % Low 20.0 - 40.0 % [facility] MCH (RBC) [Entitic mass] 31.0 pg 26. 0 - 34.0 pg [facility] MCHC (RBC) [Mass/Vol] 33.3 % 32.0 - 36.0 % [facility] MCV (RBC) [Entitic vol] 93.0 fL 80.0 - 98.0 fL [facility] Monocytes (Bld) [#/Vol] 0.5 10*3/uL 0.0 - 0.8 10*3/uL [facility] Monocytes/100 WBC (Bld) 7.5 % 2.0 - 10.0 % [facility] Neutrophils (Bld) [#/Vol] 4.4 10*3/uL 1.8 - 7.0 10*3/uL [facility] Neutrophils/100 WBC (Bld) 72.4 % 40.0 - 80.0 % [facility] Nucleated RBC/100 WBC (Bld) [Ratio] 0.0 % [facility] Platelet mean volume (Bld) [Entitic vol] 7.0 fL Low 7.4 - 12.4 fL [facility] Platelets (Bld) [#/Vol] 213 10*3/uL 140 - 440 10*3/uL [facility] [employer] RBC (Bld) [#/Vol] 3.63 10*6/uL Low 3.8 - 5.20 10*6/uL [facility] [employer] WBC (Bld) [#/Vol] 6.0 10*3/uL 3.6 - 10.7 10*3/uL [facility] [employer] No Panel Informationon 11-07 There is no interpretation needed for this exam. IMAGING Sinus rhythm Inferior infarct, old Electronically Signed On 11-07-2022 1:11:05 EDT by Melva Hull CV Melva Albrecht, - 11/07/2022 IMPRESSION: Sinus rhythm Inferior infarct, old Electronically Signed On 11-07-2022 1:11:05 EDT by Melva Hull [facility] [employer] No Panel InformationOrdered By: Melva Hull on 11-07-2022 P [place] 69 degrees [facility] [employer] Work Phone: TN Interval 152 ms [facility] Work Phone: QRS [place] -35 degrees [facility] [employer] Work Phone: QRSD Interval 98 ms [facility] Work Phone: QT Interval 395 ms [facility] [employer] Work Phone: QTC Interval 473 ms [facility] [employer] Work Phone: T Wave [place] -12 degrees [facility] [employer] Work Phone: [facility] [employer] Work Phone: Urinalysis complete panel (U )on 11-07-2022 Bilirubin Ql (U) Negative Negative mg/dL [facility] [employer] Clarity (U) Clear Clear [facility] [employer] Color (U) Yellow Lt. Yellow [facility] [employer] Glucose Ql (U) Normal Normal (<70) mg/dL [facility] [employer] Hemoglobin Ql (U) Negative Negative mg/dL [facility] Interpretation and review of laboratory results Normal [facility] Ketones (U) [Mass/Vol] Negative Negat kenton mg/dL [facility] Leukocyte esterase Test strip Ql (U) Negative Negative Sandra/uL [facility] [employer] Nitrite Ql (U) Negative Negative [facility] th pH (U) 6.5 [pH] 5.0 - 8.0 pH [facility] Protein (U) [Mass/Vol] Negative Negat kenton mg/dL [facility] Specific gravity (U) [Rel density] 1.025 1.005 - 1.030 [facility] Urobilinogen (U) [Mass/Vol] Normal Normal (0-1) mg/dL [facility] Vital signsOrdered By: Celio Hull on 11-07-2022 Heart rate 121 /min bpm [facility] Work Phone: Basic metabolic 1998 panelon 11-06-2022 Anion gap [Moles/Vol] 2 mmol/L Low 3 - 13 mmol/L [facility] Calcium [Mass/Vol] 8.4 mg/dL 8.4 - 10. 4 mg/dL [facility] Chloride [Moles/Vol] 105 mmol/L 98 - 10 7 mmol/L [facility] CO2 [Moles/Vol] 30 mmol/L 22 - 30 mmol/L [facility] Creatinine [Mass/Vol] 0.66 mg/dL 0.52 - 1.04 mg/dL [facility] GFR/1.73 sq M.predicted MDRD (S/P/Bld) [Vol rate/Area] - PINF [facility] Comment on above: Calculation based on the Chronic Kidney Disease Epidemiology Collaboration (CKD-EPI) equation refit without adjustment for race Glucose [Mass/Vol] 99 mg/dL 70 - 100 mg/dL [facility] Interpretation and review of laboratory results Abnormal [facility] Potassium [Moles/Vol] 3.5 mmol/L 3.5 - 5.1 mmol/L [facility] Sodium [Moles/Vol] 137 mmol/L 135 - 145 mmol/L [facility] Urea nitrogen [Mass/Vol] 12 mg/dL 7 - 17 mg/d L [facility] CBC panel Auto (Bld)Ordered By: Desiree Ho on 11-06-2022 Erythrocyte distribution width (RBC) [Ratio] 14.9 % High 11.5 - 14.5 % [facility] Hematocrit (Bld) [Volume fraction] 36.4 % 35.0 - 47.0 % [facility] Hemoglobin (Bld) [Mass/Vol] 12.1 g/dL 11.7 - 16.0 g/dL [facility] Interpretation and review of laboratory results Abnormal [facility] MCH (RBC) [Entitic mass] 31.0 pg 26. 0 - 34.0 pg [facility] MCHC (RBC) [Mass/Vol] 33.3 % 32.0 - 36.0 % [facility] MCV (RBC) [Entitic vol] 93.2 fL 80.0 - 98.0 fL [facility] Platelet mean volume (Bld) [Entitic vol] 7.2 fL Low 7.4 - 12.4 fL [facility] Platelets (Bld) [#/Vol] 238 10*3/uL 140 - 440 10*3/uL [facility] RBC (Bld) [#/Vol] 3.91 10*6/uL 3.8 - 5.20 10*6/uL [facility] WBC (Bld) [#/Vol] 10.3 10*3/uL 3.6 - 10.7 10*3/uL [facility] No Panel Informationon 11-06 Radiology Study observation (narrative) [facility] XR Hand - right 3 [place] No fracture or acute osseous injury. Report Dictated on Electronically Signed By: Ankit Tripathi MD Electronically Signed Date/Time: 11/06/2022 2:14 PM EDT [facility] [employer] Patient Name: GONZALO DELUCA : 1955 [...] Otherwise no significant productive or erosive arthropathy. [facility] [employer] Ankit Tripathi MD - 11/06/2022 Patient [...] Electronically Signed Date/Time: 11/06/2022 2:14 PM EDT [employer] [facility] [employer] XR Hip - left 3 [place] 10-19 Impression: Intertrochanteric left hip fracture, with foreshortening of the fracture fragments. Report Dictated on Electronically Signed By: Ankit Triapthi MD Electronically Signed Date/Time: 11/06/2022 2:28 PM EDT [employer] Patient Name: GONZALO DELUCA : 1955 [...] Electronically Signed Date/Time: 11/06/2022 2:28 PM EDT [facility] XR Ribs - left 2 [place] 1. No acute cardiopulmonary disease. 2. Pulmonary hyperinflation. 3. Normal ribs. Report Dictated on Electronically Signed By: Ankit Tripathi MD Electronically Signed Date/Time: 11/06/2022 2:26 PM EDT [employer] Patient Name: GONZALO DELUCA : 1955 Exam Date/Time: 11/06/2022 14:18 Procedure: XR RIBS 2 VIEWS LEFT Ordering Provider: MCCANN JOSEPH Reason For Exam: Rib pain, fx suspected RIGHT RIBS AND CHEST CLINICAL INDICATION: Pain. TECHNIQUE: Three views were obtained COMPARISON: Correlation with chest radiograph May 21, 2022. FINDINGS: Stable appearance/location of the left-sided chest [id number] line. The cardiac and mediastinal silhouettes are unremarkable. The hyperinflated lungs demonstrate no consolidation or area of atelectasis. The costophrenic angles are sharp. No pneumothorax is noted. The ribs demonstrate no evidence for fracture or bone lesion. [facility] [employer] Ankit Tripathi MD - 11/06/2022 Patient Name: GONZALO [facility]CA [facility] 1955 [id number] Exam Date/Time: 11/06/2022 14:18 Procedure: XR RIBS 2 VIEWS LEFT Ordering Provider: MCCANN JOSEPH Reason For Exam: Rib pain, fx suspected RIGHT RIBS AND CHEST CLINICAL INDICATION: Pain. TECHNIQUE: Three views were obtained COMPARISON: Correlation with chest radiograph May 21, 2022. FINDINGS: Stable appearance/location of the left-sided chest Lrdyes-n-[id number] line. The cardiac and mediastinal silhouettes are [...] Date/Time: 11/06/2022 2:26 PM EDT [facility] Radiology Study observation (narrative) [facility] alth XR Ribs - left 2 ViewsOrdere d By: Ankit Tripathi on 11-06-2022 [facility] [employer] Work Phone: CBC W Auto Differential pane l (Bld)on 09-15-2022 Basophils (Bld) [#/Vol] 0.05 10*3/uL <0.11 k/uL [facility] Basophils/100 WBC (Bld) 0.5 % C [facility] Differential cell count method Nom (Bld) Auto [facility] Eosinophils (Bld) [#/Vol] 0.49 10*3/uL High <0.46 k/uL [facility] Eosinophils/100 WBC (Bld) 5.0 % [facility] Erythrocyte distribution width (RBC) [Ratio] 14.9 % 11.5 - 15.0 % [facility] Hematocrit (Bld) [Volume fraction] 39.3 % 36.0 - 46.0 % [facility] Hemoglobin (Bld) [Mass/Vol] 12.1 g/dL 11.5 - 15.5 g/dL [facility] Immature granulocytes (Bld) [#/Vol] 0.04 10*3/uL <0.10 k/uL [facility] Immature granulocytes/100 WBC (Bld) 0.4 % [facility] Lymphocytes (Bld) [#/Vol] 0.94 10*3/uL Low 1.00 - 4.00 k/uL [facility] Lymphocytes/100 WBC (Bld) 9.7 % [facility] MCH (RBC) [Entitic mass] 30.2 pg 26. 0 - 34.[address] [facility] MCHC (RBC) [Mass/Vol] 30.8 g/dL 30.5 - 36.0 g/dL [facility] MCV (RBC) [Entitic vol] 98.0 fL 80.0 - 100.[address] [facility] Monocytes (Bld) [#/Vol] 0.73 10*3/uL <0.87 k/uL [facility] Monocytes/100 WBC (Bld) 7.5 % C [facility] Neutrophils (Bld) [#/Vol] 7.47 10*3/uL 1.45 - 7.50 k/uL [facility] Neutrophils/100 WBC (Bld) 76.9 % [facility] Nucleated RBC (Bld) [#/Vol] <0.01 k/uL [facility] Nucleated RBC/100 WBC (Bld) [Ratio] 0.0 /[address] [facility] Platelet mean volume (Bld) [Entitic vol] 9.3 fL 9.0 - 12.[address] [facility] Platelets (Bld) [#/Vol] 349 10*3/uL 150 - 400 k/uL [facility] RBC (Bld) [#/Vol] 4.01 10*6/uL 3.90 - 5.2 0 m/uL [facility] WBC (Bld) [#/Vol] 9.72 10*3/uL 3.70 - 11. 00 k/uL [facility] Comprehensive metabolic 2000 panelon 09-15-2022 Albumin [Mass/Vol] 4.0 g/dL 3.9 - 4.9 g/dL [facility] ALP [Catalytic activity/Vol] 148 U/L High 34 - 123 U/L [facility] ALT [Catalytic activity/Vol] 12 U/L 7 - 38 U/L [facility] Anion gap [Moles/Vol] 11 mmol/L 9 - 18 mmol/L [facility] AST [Catalytic activity/Vol] 17 U/L 13 - 35 U/L [facility] Bilirubin [Mass/Vol] 0.4 mg/dL 0.2 - 1 .3 mg/dL [facility] Calcium [Mass/Vol] 9.8 mg/dL 8.5 - 10. 2 mg/dL [facility] Chloride [Moles/Vol] 103 mmol/L 97 - 10 5 mmol/L [facility] CO2 [Moles/Vol] 28 mmol/L 22 - 30 mmol/L [facility] Creatinine [Mass/Vol] 0.64 mg/dL 0.58 - 0.96 mg/dL [facility] Estimated Glomerular Filtration Rate 98 mL/min/1.73m >=60 mL/min/1.73m [facility] Glucose [Mass/Vol] 84 mg/dL 74 - 99 mg/dL [facility] Potassium [Moles/Vol] 4.4 mmol/L 3.7 - 5.1 mmol/L [facility] Protein [Mass/Vol] 7.3 g/dL 6.3 - 8.0 g/dL [facility] Sodium [Moles/Vol] 142 mmol/L 136 - 144 mmol/L [facility] Urea nitrogen [Mass/Vol] 15 mg/dL 7 - 21 mg/d L [facility] Lipid 1996 panelon Cholesterol [Mass/Vol] 169 mg/dL <200 mg/dL [facility] Cholesterol in HDL [Mass/Vol] 54 mg/dL >39 mg/dL [facility] Cholesterol in LDL [Mass/Vol] 85 mg/dL <100 mg/dL [facility] Cholesterol in LDL/Cholesterol in HDL [Mass ratio] 1.57 {ratio} <2.[address] [facility] Cholesterol in VLDL [Mass/Vol] 30 mg/dL High <30 mg/dL [facility] Cholesterol non HDL [Mass/Vol] 115 mg/dL <130 mg/dL [facility] Cholesterol.total/Choles terol in HDL [Mass ratio] 3.13 {ratio} <5.[address] [facility] Fasting Time [address] [facility] Triglyceride [Mass/Vol] 150 mg/dL High <150 mg/dL C [facility] Basic metabolic 1998 panelon 05-24-2022 Anion gap [Moles/Vol] 3 mmol/L 3 - 13 mmol/L [facility] Calcium [Mass/Vol] 8.4 mg/dL 8.4 - 10. 4 mg/dL [facility] Chloride [Moles/Vol] 106 mmol/L 98 - 10 7 mmol/L [facility] CO2 [Moles/Vol] 30 mmol/L 22 - 30 mmol/L [facility] Creatinine [Mass/Vol] 0.64 mg/dL 0.52 - 1.04 mg/dL [facility] GFR/1.73 sq M.predicted MDRD (S/P/Bld) [Vol rate/Area] - PINF [facility] Comment on above: Calculation based on the Chronic Kidney Disease Epidemiology Collaboration (CKD-EPI) equation refit without adjustment for race Glucose [Mass/Vol] 157 mg/dL High 70 - 100 mg/dL [facility] Interpretation and review of laboratory results Abnormal [facility] Potassium [Moles/Vol] 3.6 mmol/L 3.5 - 5.1 mmol/L [facility] Sodium [Moles/Vol] 139 mmol/L 135 - 145 mmol/L [facility] Urea nitrogen [Mass/Vol] 12 mg/dL 7 - 17 mg/d L [facility] CBC W Auto Differential pane l (Bld)on 05-24-2022 Basophils (Bld) [#/Vol] 0.0 10*3/uL 0.0 - 0.2 10*3/uL [facility] Basophils/100 WBC (Bld) 0.5 % 0.0 - 2.0 % [facility] Eosinophils (Bld) [#/Vol] 0.3 10*3/uL 0.0 - 0.5 10*3/uL [facility] Eosinophils/100 WBC (Bld) 3.0 % 1.0 - 6.0 % [facility] Erythrocyte distribution width (RBC) [Ratio] 13.5 % 11.5 - 14.5 % [facility] Hematocrit (Bld) [Volume fraction] 30.6 % Low 35.0 - 47.0 % [facility] Hemoglobin (Bld) [Mass/Vol] 10.0 g/dL Low 11.7 - 16.0 g/dL [facility] Interpretation and review of laboratory results Abnormal [facility] Lymphocytes (Bld) [#/Vol] 0.8 10*3/uL Low 1.0 - 4.3 10*3/uL [facility] Lymphocytes/100 WBC (Bld) 8.6 % Low 20.0 - 40.0 % [facility] MCH (RBC) [Entitic mass] 31.0 pg 26. 0 - 34.0 pg [facility] MCHC (RBC) [Mass/Vol] 32.6 % 32.0 - 36.0 % [facility] MCV (RBC) [Entitic vol] 95.1 fL 80.0 - 98.0 fL [facility] Monocytes (Bld) [#/Vol] 0.5 10*3/uL 0.0 - 0.8 10*3/uL [facility] Monocytes/100 WBC (Bld) 5.7 % 2.0 - 10.0 % [facility] Neutrophils (Bld) [#/Vol] 7.6 10*3/uL High 1.8 - 7.0 10*3/uL [facility] Neutrophils/100 WBC (Bld) 82.2 % High 40.0 - 80.0 % [facility] Nucleated RBC/100 WBC (Bld) [Ratio] 0.0 % [facility] Platelet mean volume (Bld) [Entitic vol] 7.1 fL Low 7.4 - 12.4 fL [facility] Platelets (Bld) [#/Vol] 261 10*3/uL 140 - 440 10*3/uL [facility] RBC (Bld) [#/Vol] 3.22 10*6/uL Low 3.8 - 5.20 10*6/uL [facility] WBC (Bld) [#/Vol] 9.3 10*3/uL 3.6 - 10.7 10*3/uL [facility] Basic metabolic 1998 panelon 05-23-2022 Anion gap [Moles/Vol] 2 mmol/L Low 3 - 13 mmol/L [facility] Calcium [Mass/Vol] 8.5 mg/dL 8.4 - 10. 4 mg/dL [facility] [employer] Chloride [Moles/Vol] 109 mmol/L High 98 - 10 7 mmol/L [facility] CO2 [Moles/Vol] 28 mmol/L 22 - 30 mmol/L [facility] Creatinine [Mass/Vol] 0.68 mg/dL 0.52 - 1.04 mg/dL [facility] GFR/1.73 sq M.predicted MDRD (S/P/Bld) [Vol rate/Area] - PINF [facility] Comment on above: Calculation based on the Chronic Kidney Disease Epidemiology Collaboration (CKD-EPI) equation refit without adjustment for race Glucose [Mass/Vol] 104 mg/dL High 70 - 100 mg/dL [facility] Interpretation and review of laboratory results Abnormal [facility] Potassium [Moles/Vol] 3.6 mmol/L 3.5 - 5.1 mmol/L [facility] Sodium [Moles/Vol] 138 mmol/L 135 - 145 mmol/L [facility] Urea nitrogen [Mass/Vol] 13 mg/dL 7 - 17 mg/d L [facility] CBC W Auto Differential pane l (Bld)Ordered By: Crystal Dupont on 05-23-2022 Basophils (Bld) [#/Vol] 0.1 10*3/uL 0.0 - 0.2 10*3/uL [facility] Basophils/100 WBC (Bld) 0.5 % 0.0 - 2.0 % [facility] Eosinophils (Bld) [#/Vol] 0.2 10*3/uL 0.0 - 0.5 10*3/uL [facility] Eosinophils/100 WBC (Bld) 2.5 % 1.0 - 6.0 % [facility] Erythrocyte distribution width (RBC) [Ratio] 13.9 % 11.5 - 14.5 % [facility] Hematocrit (Bld) [Volume fraction] 31.1 % Low 35.0 - 47.0 % [facility] Hemoglobin (Bld) [Mass/Vol] 10.3 g/dL Low 11.7 - 16.0 g/dL [facility] Interpretation and review of laboratory results Abnormal [facility] Lymphocytes (Bld) [#/Vol] 0.7 10*3/uL Low 1.0 - 4.3 10*3/uL [facility] Lymphocytes/100 WBC (Bld) 6.8 % Low 20.0 - 40.0 % [facility] MCH (RBC) [Entitic mass] 31.5 pg 26. 0 - 34.0 pg [facility] MCHC (RBC) [Mass/Vol] 33.1 % 32.0 - 36.0 % [facility] MCV (RBC) [Entitic vol] 95.1 fL 80.0 - 98.0 fL [facility] [employer] Monocytes (Bld) [#/Vol] 0.7 10*3/uL 0.0 - 0.8 10*3/uL [facility] [employer] Monocytes/100 WBC (Bld) 7.5 % 2.0 - 10.0 % [facility] Neutrophils (Bld) [#/Vol] 7.9 10*3/uL High 1.8 - 7.0 10*3/uL [facility] Neutrophils/100 WBC (Bld) 82.7 % High 40.0 - 80.0 % [facility] [employer] Nucleated RBC/100 WBC (Bld) [Ratio] 0.1 % [facility] [employer] Platelet mean volume (Bld) [Entitic vol] 6.7 fL Low 7.4 - 12.4 fL [facility] [employer] Platelets (Bld) [#/Vol] 248 10*3/uL 140 - 440 10*3/uL [facility] RBC (Bld) [#/Vol] 3.27 10*6/uL Low 3.8 - 5.20 10*6/uL [facility] [employer] WBC (Bld) [#/Vol] 9.6 10*3/uL 3.6 - 10.7 10*3/uL [facility] - Chemistry and C hemistry - challengeon 05-23-2022 Magnesium [Mass/Vol] 1.9 mg/dL 1.6 - 2 .3 mg/dL [facility] Magnesium [Mass/Vol]on 05-23 Interpretation and review of laboratory results Normal [facility] No Panel Informationon 05-23 [facility] [employer] Basic metabolic 1998 panelon 05-22-2022 Anion gap [Moles/Vol] 2 mmol/L Low 3 - 13 mmol/L [facility] Calcium [Mass/Vol] 8.4 mg/dL 8.4 - 10. 4 mg/dL [facility] [employer] Chloride [Moles/Vol] 105 mmol/L 98 - 10 7 mmol/L [facility] CO2 [Moles/Vol] 30 mmol/L 22 - 30 mmol/L [facility] Creatinine [Mass/Vol] 0.69 mg/dL 0.52 - 1.04 mg/dL [facility] GFR/1.73 sq M.predicted MDRD (S/P/Bld) [Vol rate/Area] - PINF [facility] Comment on above: Calculation based on the Chronic Kidney Disease Epidemiology Collaboration (CKD-EPI) equation refit without adjustment for race Glucose [Mass/Vol] 86 mg/dL 70 - 100 mg/dL [facility] Interpretation and review of laboratory results Abnormal [facility] Potassium [Moles/Vol] 4.2 mmol/L 3.5 - 5.1 mmol/L [facility] Sodium [Moles/Vol] 137 mmol/L 135 - 145 mmol/L [facility] Urea nitrogen [Mass/Vol] 13 mg/dL 7 - 17 mg/d L [facility] CBC W Auto Differential pane l (Bld)Ordered By: Hakeem Cruz on 05-22-2022 Basophils (Bld) [#/Vol] 0.0 10*3/uL 0.0 - 0.2 10*3/uL [facility] Basophils/100 WBC (Bld) 0.5 % 0.0 - 2.0 % [facility] Eosinophils (Bld) [#/Vol] 0.3 10*3/uL 0.0 - 0.5 10*3/uL [facility] Eosinophils/100 WBC (Bld) 4.1 % 1.0 - 6.0 % [facility] Erythrocyte distribution width (RBC) [Ratio] 14.0 % 11.5 - 14.5 % [facility] Hematocrit (Bld) [Volume fraction] 33.0 % Low 35.0 - 47.0 % [facility] Hemoglobin (Bld) [Mass/Vol] 10.8 g/dL Low 11.7 - 16.0 g/dL [facility] Interpretation and review of laboratory results Abnormal [facility] Lymphocytes (Bld) [#/Vol] 1.0 10*3/uL 1.0 - 4.3 10*3/uL [facility] Lymphocytes/100 WBC (Bld) 12.8 % Low 20.0 - 40.0 % [facility] MCH (RBC) [Entitic mass] 31.2 pg 26. 0 - 34.0 pg [facility] MCHC (RBC) [Mass/Vol] 32.8 % 32.0 - 36.0 % [facility] MCV (RBC) [Entitic vol] 95.1 fL 80.0 - 98.0 fL [facility] Monocytes (Bld) [#/Vol] 0.6 10*3/uL 0.0 - 0.8 10*3/uL [facility] Monocytes/100 WBC (Bld) 8.6 % 2.0 - 10.0 % [facility] Neutrophils (Bld) [#/Vol] 5.6 10*3/uL 1.8 - 7.0 10*3/uL [facility] Neutrophils/100 WBC (Bld) 74.0 % 40.0 - 80.0 % [facility] Nucleated RBC/100 WBC (Bld) [Ratio] 0.0 % [facility] Platelet mean volume (Bld) [Entitic vol] 7.0 fL Low 7.4 - 12.4 fL [facility] Platelets (Bld) [#/Vol] 238 10*3/uL 140 - 440 10*3/uL [facility] RBC (Bld) [#/Vol] 3.47 10*6/uL Low 3.8 - 5.20 10*6/uL [facility] WBC (Bld) [#/Vol] 7.5 10*3/uL 3.6 - 10.7 10*3/uL [facility] - Chemistry and C hemistry - challengeon 05-22-2022 Magnesium [Mass/Vol] 2.2 mg/dL 1.6 - 2 .3 mg/dL [facility] Magnesium [Mass/Vol]on 05-22 Interpretation and review of laboratory results Normal [facility] No Panel Informationon 05-22 [facility] Basic metabolic 1998 panelon 05-21-2022 Anion gap [Moles/Vol] 1 mmol/L Low 3 - 13 mmol/L [facility] Calcium [Mass/Vol] 9.1 mg/dL 8.4 - 10. 4 mg/dL [facility] Chloride [Moles/Vol] 103 mmol/L 98 - 10 7 mmol/L [facility] CO2 [Moles/Vol] 35 mmol/L High 22 - 30 mmol/L [facility] Creatinine [Mass/Vol] 0.78 mg/dL 0.52 - 1.04 mg/dL [facility] GFR/1.73 sq M.predicted MDRD (S/P/Bld) [Vol rate/Area] 84.4 mL/min/{1.73_m2} - PINF [facility] Comment on above: Calculation based on the Chronic Kidney Disease Epidemiology Collaboration (CKD-EPI) equation refit without adjustment for race Glucose [Mass/Vol] 116 mg/dL High 70 - 100 mg/dL [facility] Potassium [Moles/Vol] 4.2 mmol/L 3.5 - 5.1 mmol/L [facility] Sodium [Moles/Vol] 138 mmol/L 135 - 145 mmol/L [facility] Urea nitrogen [Mass/Vol] 15 mg/dL 7 - 17 mg/d L [facility] CBC W Auto Differential pane l (Bld)Ordered By: Yair Sanchez on 05-21-2022 Basophils (Bld) [#/Vol] 0.0 10*3/uL 0.0 - 0.2 10*3/uL [facility] Basophils/100 WBC (Bld) 0.2 % 0.0 - 2.0 % [facility] Eosinophils (Bld) [#/Vol] 0.2 10*3/uL 0.0 - 0.5 10*3/uL [facility] Eosinophils/100 WBC (Bld) 1.8 % 1.0 - 6.0 % [facility] Erythrocyte distribution width (RBC) [Ratio] 14.0 % 11.5 - 14.5 % [facility] Hematocrit (Bld) [Volume fraction] 39.0 % 35.0 - 47.0 % [facility] Hemoglobin (Bld) [Mass/Vol] 12.5 g/dL 11.7 - 16.0 g/dL [facility] Interpretation and review of laboratory results Abnormal [facility] Lymphocytes (Bld) [#/Vol] 0.7 10*3/uL Low 1.0 - 4.3 10*3/uL [facility] Lymphocytes/100 WBC (Bld) 5.6 % Low 20.0 - 40.0 % [facility] MCH (RBC) [Entitic mass] 30.7 pg 26. 0 - 34.0 pg [facility] MCHC (RBC) [Mass/Vol] 32.1 % 32.0 - 36.0 % [facility] MCV (RBC) [Entitic vol] 95.4 fL 80.0 - 98.0 fL [facility] Monocytes (Bld) [#/Vol] 0.6 10*3/uL 0.0 - 0.8 10*3/uL [facility] Monocytes/100 WBC (Bld) 5.3 % 2.0 - 10.0 % [facility] Neutrophils (Bld) [#/Vol] 10.6 10*3/uL High 1.8 - 7.0 10*3/uL [facility] [employer] Neutrophils/100 WBC (Bld) 87.1 % High 40.0 - 80.0 % [facility] [employer] Nucleated RBC/100 WBC (Bld) [Ratio] 0.0 % [facility] [employer] Platelet mean volume (Bld) [Entitic vol] 7.5 fL 7.4 - 12.4 fL [facility] [employer] Platelets (Bld) [#/Vol] 339 10*3/uL 140 - 440 10*3/uL [facility] RBC (Bld) [#/Vol] 4.09 10*6/uL 3.8 - 5.20 10*6/uL [facility] WBC (Bld) [#/Vol] 12.1 10*3/uL High 3.6 - 10.7 10*3/uL [facility] CT Cervical spine WO contras ton 05-21-2022 1. No fracture or subluxation of the cervical vertebrae. 2. 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 3. Diffuse osteopenia. 4. Emphysema. Report Dictated on Electronically Signed By: Jaspreet Jeong Electronically Signed Date/Time: 05/21/2022 4:41 AM [facility] RADIOLOGY SYSTEM Patient Name: GONZALO DELUCA : [...] Jeong Electronically Signed Date/Time: 05/21/2022 4:[address] [facility] Radiology Study observation (narrative) [facility] alth CT Head WO contraston 2022 No acute intracranial process. Minimal right periorbital soft tissue swelling. Report Dictated on Electronically Signed By: Jaspreet Jeong Electronically Signed Date/Time: 05/21/2022 4:38 AM [facility] RADIOLOGY SYSTEM Patient Name: GONZALO DELUCA : [...] Right preorbital air density is normal finding. [facility] Jaspreet Jeong DO - 05/21/2022 [facility] Name: [facility]ON[facility] 1955 [id number] Exam Date/Time: 05/21/2022 04:30 Procedure: CT HEAD [...] Electronically Signed Date/Time: 05/21/2022 4:38 AM EST [facility] Radiology Study observation (narrative) Abe German [facility] Laboratory - Chemistry and C hemistry - challengeon 05-21-2022 Magnesium [Mass/Vol] 2.6 mg/dL High 1.6 - 2 .3 mg/dL [facility] No Panel Informationon 05-21 Interpretation and review of laboratory results Abnormal [facility] Martha Flores MD 05/21/2022 5:56 AM [facility] [...] Procedure completion: Tolerated well, no immediate complications [facility] Martha Flores MD 05/21/2022 5:56 AM [facility] Performed by: Martha Flores MD Authorized by: Martha Flores MD Consent: Consent obtained: Verbal Consent given by: Patient Risks discussed: Infection, need for additional repair, poor cosmetic result and poor wound healing [place] protocol: Patient identity confirmed: Verbally with patient [...] Tolerated well, no immediate complications [facility] Martha Flores MD 05/21/2022 5:56 AM [facility] Performed by: Martha Flores MD Authorized by: Martha Flores MD Consent: Consent obtained: Verbal Consent given by: Patient Risks discussed: Infection, pain, poor cosmetic result, poor wound healing and need for additional repair [place] protocol: Patient identity confirmed: Verbally with patient [...] Tolerated well, no immediate complications [facility] XR Chest Single viewon 05-21 1. Lines/ [...] view of thorax was obtained and reviewed. [facility] Jaspreet Jeong DO - 05/21/2022 Patient [...] Jeong Electronically Signed Date/Time: 05/21/2022 3:[address] [facility] Radiology Study observation (narrative) [facility] German alth XR Elbow - right 3 Viewson 0 05-21-2022 Elbow joint effusion . Occult elbow osseous fracture is likely, but not visualized. Osteopenia. Follow-up right elbow radiograph in 7-10 days is recommended. Report Dictated on Workstation: [employer] Electronically Signed By: Jaspreet Jeong Electronically Signed Date/Time: 05/21/2022 4:16 AM [facility] RADIOLOGY SYSTEM Patient Name: GONZALO DELUCA : [...] are demineralized. No bone lesion is identified. [facility] Jaspreet Jeong, DO - 05/21/2022 Patient Name: [...] Electronically Signed Date/Time: 05/21/2022 4:16 AM EST [facility] Radiology Study observation (narrative) Abe paz XR Elbow - right 3 ViewsOrde red By: Jaspreet Jeong on 05-21-2022 [email or web address] Work Phone: XR Pelvis 1 or 2 Viewson No acute traumatic osseous abnormality. Osteopenia. Report Dictated on Workstation: [employer] Electronically Signed By: Jaspreet Jeong Electronically Signed Date/Time: 05/21/2022 4:17 AM [facility] [employer] SYSTEM Patient Name: GONZALO DELUCA : 1955 [...] lesion or soft tissue abnormality is identified. [facility] Jaspreet Jeong, DO - 05/21/2022 Patient [...] osseous abnormality. Osteopenia. Report Dictated on Workstation: [employer] Electronically Signed By: Jaspreet Jeong Electronically Signed Date/Time: 05/21/2022 4:[address] [facility] Radiology Study observation (narrative) [facility] German alth XR Shoulder - right 2 Viewso n 05-21-2022 1. Acute, transverse fracture through the right proximal surgical humeral neck. There is mild avulsion fracture of the right greater tuberosity. Diffuse osteopenia. Remote multiple mid thoracic compression fracture deformities, unchanged. Emphysema. Report Dictated on Electronically Signed By: Jaspreet Jeong Electronically Signed Date/Time: 05/21/2022 3:56 AM [facility] [employer] SYSTEM Patient Name: GONZALO DELUCA : 1955 [...] hyperinflated with flattened diaphragms, consistent with COPD. [facility] Jaspreet Jeong, - 05/21/2022 Patient Name: [...] Electronically Signed Date/Time: 05/21/2022 3:56 AM EST [facility] Radiology Study observation (narrative) [facility] Basic Metabolic Panelon 07-2 Anion gap [Moles/Vol] 4 mmol/L Normal 3-13 [facility] Comment on above: Performed By: #### B MP3 #### [facility] [address] [place] [address] Calcium [Mass/Vol] 8.8 mg/dL Normal 8.4-10.4 [facility] Comment on above: Performed By: #### B MP3 #### [facility] [address] [place] [address] CO2 [Moles/Vol] 31 mmol/L High 22-30 [facility] Comment on above: Performed By: #### B MP3 #### [facility] [address] [place] [address] Glucose [Mass/Vol] 91 mg/dL Normal 70-100 [facility] Comment on above: Performed By: #### B MP3 #### [facility] [address] [place] [address] Urea nitrogen [Mass/Vol] 15 mg/dL Normal 9-20 [facility] Comment on above: Performed By: #### B MP3 #### [facility] [address] [place] [address] Creatinine [Mass/Vol] 0.80 mg/dL Normal 0.52-1.25 [facility] Comment on above: Performed By: #### B MP3 #### [facility] [address] [place] [address] GFR/1.73 sq M.predicted among blacks MDRD (S/P/Bld) [Vol rate/Area] 89.7 mL/min/{1.73_m2} Normal >60 [facility] Comment on above: Performed By: #### B MP3 #### [facility] [address] [place] [address] GFR/1.73 sq M.predicted among non-blacks MDRD (S/P/Bld) [Vol rate/Area] 77.4 mL/min/{1.73_m2} Normal >60 [facility] Comment on above: Result Comment: [...] secretion. Performed By: #### B MP3 #### [facility] [address] [place] [address] Potassium [Moles/Vol] 4.1 mmol/L Normal 3.5-5.1 [facility] Comment on above: Performed By: #### B MP3 #### [facility] [address] [place] [address] Chloride [Moles/Vol] 106 mmol/L Normal 98-107 [facility] Comment on above: Performed By: #### B MP3 #### [facility] [address] [place] [address] Sodium [Moles/Vol] 141 mmol/L Normal 135-145 [facility] Comment on above: Performed By: #### B MP3 #### [employer] [facility] [address] [place] [address] Anion gap [Moles/Vol] 4 mmol/L 3 - 13 mmol/L [facility] Calcium [Mass/Vol] 8.8 mg/dL 8.4 - 10. 4 mg/dL [facility] Chloride [Moles/Vol] 106 mmol/L 98 - 10 7 mmol/L [facility] CO2 [Moles/Vol] 31 mmol/L High 22 - 30 mmol/L [facility] Creatinine [Mass/Vol] 0.8 mg/dL 0.52 - 1.25 mg/dL [facility] EGFR IF NonAfrican [place] 77.4 mL/min 60 - PINF mL/min [facility] [...] - 20 mg/dL [facility] Test Performed by [facility], [address], [place], [place] [address] [facility] CT Chest w/ Contraston 10-14 CT Chest w/ Contrast Patient Name: GONZALO EDEN Computed Tomography ACCESSION EXAM DATE/TIME PROCEDURE ORDERING PROVIDER [id number] 10/14/2021 14:[address] Thorax w/ Contrast ZIYAD MENENDEZ CPT code 81279 Q9967 Reason For Exam (CT Thorax w/ [...] Transcribed Date and Time: 10/16/2021 12:06 Normal [facility] TOX SCREEN ROUT URon 022 Amphetamines Confirm (U) [Mass/Vol] Negative Negative [facility] Barbiturates Urine Negative Negative [facility] Benzodiazepines Urine Negative Negative [facility] [place] [facility] Cannabinoids, Urine Negative Negative [facility] Cocaine Ql (U) Negative Negative [facility] Ethanol (U) [Mass/Vol] <11 <11 mg/dL [facility] Opiates Screen Ql (U) Negative Negative [facility] [place] [facility] oxyCODONE cutoff Screen (U) [Mass/Vol] Positive Abnormal Negative [facility] Phencyclidine Ql (U) Negative Negative [facility] CT Chest w/ Contraston 12-26 CT Chest w/ Contrast Patient Name: GONZALO EDEN Computed Tomography ACCESSION EXAM DATE/TIME PROCEDURE ORDERING PROVIDER [id number] 12/26/2020 11:[address] Thorax w/ Contrast ZIYAD MENENDEZ CPT code 62289 Q9967 Reason For Exam (CT Thorax w/ [...] Transcribed Date and Time: 12/29/2020 2:04 Normal [facility] Creatinineon 12-26-2020 Creatinine [Mass/Vol] 0.73 mg/dL Normal 0.52-1.25 [facility] Comment on above: Performed By: #### C RTN3 #### [facility] [address] [place] [address] GFR/1.73 sq M.predicted among blacks MDRD (S/P/Bld) [Vol rate/Area] mL/min/{1.73_m2} Normal >60 [facility] Comment on above: Performed By: #### C RTN3 #### [facility] [address] [place] [address] GFR/1.73 sq M.predicted among non-blacks MDRD (S/P/Bld) [Vol rate/Area] 87.0 mL/min/{1.73_m2} Normal >60 [facility] Comment on above: Result Comment: [...] secretion. Performed By: #### C RTN3 #### [facility] [address] [place] [address] Creatinine, SerumOrdered By: Ziyad Menendez on 12-26-2020 Creatinine [Mass/Vol] 0.73 mg/dL 0.52 - 1.25 mg/dL [facility] Work Phone: EGFR IF NonAfrican [place] 87.0 mL/min >60 [facility] Work Phone: Comment on above: KDIGO guidelines [...] MDRD (S/P/Bld) [Vol rate/Area] mL/min/{1.73_m2} >60 mL/min [facility] Work Phone: Test Performed by [email or web address] [facility], [address] [place], [place] [address] [facility] Work Phone: [phone] [facility] Work Phone: XR ELBOW RIGHT (MIN 3 VIEWS) Ordered By: Lauren Lutz on 10-16-2020 Patient Name: GONZALO DELUCA Diagnostic Radiology ACCESSION EXAM DATE/TIME PROCEDURE ORDERING PROVIDER [id number] 10/16/2020 15:30 EDT CR Elbow 3+ Views Right NADEEM LUTZ DANIEL M CPT code 79591 Reason For Exam (CR Elbow 3+ Views [...] ANTHONY Transcribed Date and Time: 10/16/2020 3:57 [facility] Work Phone: Real, [facility] Incoming Radiology Results From [facility] - 10/16/2020 3:57 PM EDT Patient Name: GONZALO DELUCA Diagnostic Radiology ACCESSION EXAM DATE/TIME PROCEDURE ORDERING PROVIDER [id number] 10/16/2020 15:30 EDT CR Elbow 3+ Views Right NADEEM LUTZ DANIEL M CPT code 68602 Reason For Exam (CR Elbow 3+ Views [...] Radiology ACCESSION EXAM DATE/TIME PROCEDURE ORDERING PROVIDER [id number] 10/16/2020 15:30 EDT CR Spine Lumbosacral 2 NELDA, NADEEM, LAUREN M or 3 Views CPT code 57916 Reason For Exam (CR Spine Lumbosacral 2 [...] Phone: Real, [facility] Incoming Radiology Results From [facility] - 10/16/2020 5:12 PM EDT Patient Name: GONZALO DELUCA Diagnostic Radiology ACCESSION EXAM DATE/TIME PROCEDURE ORDERING PROVIDER [id number] 10/16/2020 15:30 EDT CR Spine Lumbosacral 2 NADEEM LUTZ DANIEL M or 3 Views CPT code 09020 Reason For Exam (CR Spine Lumbosacral 2 [...] Lutz on 10-16-2020 [facility]: [id number]iology ACCESSION EXAM DATE/TIME PROCEDURE ORDERING PROVIDER [id number] 10/16/2020 15:30 EDT CR Sacrum/Coccyx 2+ NADEEM LUTZ DANIEL M Views CPT code 70381 Reason For Exam (CR Sacrum/Coccyx 2+ Views) [...] R Transcribed Date and Time: 10/16/2020 5:14 [facility] Work Phone: Real, [facility] Incoming Radiology Results From [facility] - 10/16/2020 5:14 PM EDT Patient Name: GONZALO DELUCA Diagnostic Radiology ACCESSION EXAM DATE/TIME PROCEDURE ORDERING PROVIDER [id number] 10/16/2020 15:30 EDT CR Sacrum/Coccyx 2+ NELDA, MOTION PICTURE SET GRIP, LAUREN M Views CPT code 89667 Reason For Exam (CR Sacrum/Coccyx 2+ Views) [...] R Transcribed Date and Time: 10/16/2020 5:14 [facility] Work Phone: [facility] Work Phone: CT CHEST W CONTRASTOrdered B y: Ziyad Menendez on 09-24-2020 Patient Name: GONZALO DELUCA Computed Tomography ACCESSION EXAM DATE/TIME PROCEDURE ORDERING PROVIDER [id number] 09/24/2020 12:[address] Thorax w/ Contrast MENENDEZZIYAD RILEY CPT code 75709 Q9967 Reason For Exam (CT Thorax w/ [...] Phone: Real, [facility] Incoming Radiology Results From [facility] - 09/24/2020 6:29 PM EDT Patient Name: GONZALO DELUCA Computed Tomography ACCESSION EXAM DATE/TIME PROCEDURE ORDERING PROVIDER [id number] 09/24/2020 12:[address] Thorax w/ Contrast ZIYAD MENENDEZ CPT code 79474 Q9967 Reason For Exam (CT Thorax w/ [...] other acute findings. Report Dictated on Workstation: [id number] --- Final --- Dictating Physician: MD AVILA WENDELL Signed Date and Time: 09/24/2020 6:27 pm Signed by: MD AVILA WENDELL Transcribed Date and Time: 09/24/2020 6:28 [facility] Work Phone: [facility] Work Phone: [facility] 09-12-2020 [facility] HNO ID: [id number] Author: RT Alfred(R) Service: Radiology Author Type: Waiter Waitress Type: [facility] Filed: 09/12/2020 12:49 PM [...] Alfred(R) September 12, 2020 12:49 PM Normal [facility] Basic metabolic 2000 panelon 09-12-2020 Anion gap [Moles/Vol] 5 mmol/L Low 8-16 [facility] Comment on above: Order Comment: Speci men Type: BLOOD SPECIMEN Performed By: #### 2 4321-2 #### [facility] CLIA [id number] [address] [place] [address] [place] Calcium [Mass/Vol] 8.8 mg/dL Normal 8.5-10.1 [facility] Comment on above: Order Comment: Speci men Type: BLOOD SPECIMEN Performed By: #### 2 4321-2 #### [facility] CLIA [id number] [address] [place] [address] [place] Chloride [Moles/Vol] 102 mmol/L Normal 98-107 [facility] Comment on above: Order Comment: Speci men Type: BLOOD SPECIMEN Performed By: #### 2 4321-2 #### [facility] CLIA [id number] [address] [place] [address] CO2 [Moles/Vol] 33 mmol/L High 21-32 [facility] Comment on above: Order Comment: Speci men Type: BLOOD SPECIMEN Performed By: #### 2 4321-2 #### [facility] CLIA [id number] [address] [place] [address] Creatinine [Mass/Vol] 0.86 mg/dL Normal 0.51-0.95 [facility] Comment on above: Order Comment: Speci men Type: BLOOD SPECIMEN Performed By: #### 2 4321-2 #### [facility] CLIA [id number] [address] [place] [address] GFR/1.73 sq M.predicted among blacks MDRD (S/P/Bld) [Vol rate/Area] mL/min/{1.73_m2} [facility] Comment on above: Order Comment: Speci men Type: BLOOD SPECIMEN Performed By: #### 2 4321-2 #### [facility] CLIA [id number] [address] [place] [address] GFR/1.73 sq M.predicted among non-blacks MDRD (S/P/Bld) [...] 4321-2 #### [facility] CLIA [id number] [address] [place] [address] [place] Glucose [Mass/Vol] 98 mg/dL Normal 70-99 [facility] Comment on above: Order Comment: Speci men Type: BLOOD SPECIMEN Result Comment: The [place] Diabetes Association (ADA) provides guidance for cutoff [...] Standards of Medical Care in Diabetes 2016, [place] Diabetes Association. Diabetes Care. 2016.39(Suppl 1). Performed By: #### 2 4321-2 #### [facility] CLIA [id number] [address] [place] [address] [place] Potassium [Moles/Vol] 3.7 mmol/L Normal 3.5-5.1 [facility] Comment on above: Order Comment: Speci men Type: BLOOD SPECIMEN Performed By: #### 2 4321-2 #### [facility] CLIA [id number] [address] [place] [address] [place] Sodium [Moles/Vol] 140 mmol/L Normal 136-145 [facility] Comment on above: Order Comment: Speci men Type: BLOOD SPECIMEN Performed By: #### 2 4321-2 #### [facility] CLIA [id number] [address] [place] [address] [place] Urea nitrogen [Mass/Vol] 17 mg/dL Normal 7-18 [facility] Comment on above: Order Comment: Speci men Type: BLOOD SPECIMEN Performed By: #### 2 4321-2 #### [facility] CLIA [id number] [address] [place] [address] [place] CBC W Auto Differential pane l (Bld)on 06-25-2021 Basophils (Bld) [#/Vol] 0.03 10*3/uL Normal <0.11 [facility] Comment on above: Order Comment: Speci men Type: BLOOD SPECIMEN Performed By: #### 5 7021-8 #### [facility] CLIA [id number] [address] [place] [address] Basophils/100 WBC (Bld) 0.5 % Normal [facility] Comment on above: Order Comment: Speci men Type: BLOOD SPECIMEN Performed By: #### 5 7021-8 #### [facility] CLIA [id number] [address] [place] [address] Differential cell count method Nom (Bld) Auto Normal [facility] Comment on above: Order Comment: Speci men Type: BLOOD SPECIMEN Performed By: #### 5 7021-8 #### [facility] CLIA [id number] [address] [place] [address] [place] Eosinophils (Bld) [#/Vol] 0.49 10*3/uL High <0.46 [facility] Comment on above: Order Comment: Speci men Type: BLOOD SPECIMEN Performed By: #### 5 7021-8 #### [facility] CLIA [id number] [address] [place] [address] Eosinophils/100 WBC (Bld) 8.2 % Normal [facility] Comment on above: Order Comment: Speci men Type: BLOOD SPECIMEN Performed By: #### 5 7021-8 #### [facility] CLIA [id number] [address] [place] [address] Erythrocyte distribution width (RBC) [Ratio] 12.7 % Normal 11.5-15.0 [facility] Comment on above: Order Comment: Speci men Type: BLOOD SPECIMEN Performed By: #### 5 7021-8 #### [facility] CLIA [id number] [address] [place], [place] [address] [place] Hematocrit (Bld) [Volume fraction] 34.2 % Low 36.0-46.0 [facility] Comment on above: Order Comment: Speci men Type: BLOOD SPECIMEN Performed By: #### 5 7021-8 #### [facility] CLIA [id number] [address] [place] [address] Hemoglobin (Bld) [Mass/Vol] 10.8 g/dL Low 11.5-15.5 [facility] Comment on above: Order Comment: Speci men Type: BLOOD SPECIMEN Performed By: #### 5 7021-8 #### [facility] CLIA [id number] [address] [place] [address] Lymphocytes (Bld) [#/Vol] 0.59 10*3/uL Low 1.00-4.00 [facility] Comment on above: Order Comment: Speci men Type: BLOOD SPECIMEN Performed By: #### 5 7021-8 #### [facility] CLIA [id number] [address] [place] [address] Lymphocytes/100 WBC (Bld) 9.9 % Normal [facility] Comment on above: Order Comment: Speci men Type: BLOOD SPECIMEN Performed By: #### 5 7021-8 #### [facility] CLIA [id number] [address] [place] [address] MCH (RBC) [Entitic mass] 30.7 pg Normal 26.0-34.0 [facility] Comment on above: Order Comment: Speci men Type: BLOOD SPECIMEN Performed By: #### 5 7021-8 #### [facility] CLIA [id number] [address] [place] [address] MCHC (RBC) [Mass/Vol] 31.6 g/dL Normal 30.5-36.0 [facility] Comment on above: Order Comment: Speci men Type: BLOOD SPECIMEN Performed By: #### 5 7021-8 #### [facility] CLIA [id number] [address] [place] [address] MCV (RBC) [Entitic vol] 97.2 fL Normal 80.0-100.0 [facility] Comment on above: Order Comment: Speci men Type: BLOOD SPECIMEN Performed By: #### 5 7021-8 #### [facility] CLIA [id number] [address] [place] [address] Monocytes (Bld) [#/Vol] 0.63 10*3/uL Normal <0.87 [facility] Comment on above: Order Comment: Speci men Type: BLOOD SPECIMEN Performed By: #### 5 7021-8 #### [facility] CLIA [id number] [address] [place] [address] [place] Monocytes/100 WBC (Bld) 10.6 % Normal [facility] Comment on above: Order Comment: Speci men Type: BLOOD SPECIMEN Performed By: #### 5 7021-8 #### [facility] CLIA [id number] [address] [place] [address] [place] Neutrophils (Bld) [#/Vol] 4.20 10*3/uL Normal 1.45-7.50 [facility] Comment on above: Order Comment: Speci men Type: BLOOD SPECIMEN Performed By: #### 5 7021-8 #### [facility] CLIA [id number] [address] [place] [address] Neutrophils/100 WBC (Bld) 70.8 % Normal [facility] Comment on above: Order Comment: Speci men Type: BLOOD SPECIMEN Performed By: #### 5 7021-8 #### [facility] CLIA [id number] [address] [place], [place] [address] [facility] [place] Platelet mean volume (Bld) [Entitic vol] 9.1 fL Normal 9.0-12.7 [facility] Comment on above: Order Comment: Speci men Type: BLOOD SPECIMEN Performed By: #### 5 7021-8 #### [facility] CLIA [id number] [address] [place], [place] [address] [place] Platelets (Bld) [#/Vol] 215 10*3/uL Normal 150-400 [facility] Comment on above: Order Comment: Speci men Type: BLOOD SPECIMEN Performed By: #### 5 7021-8 #### [facility] CLIA [id number] [address] [place] [address] RBC (Bld) [#/Vol] 3.52 10*6/uL Low 3.90-5.20 [facility] Comment on above: Order Comment: Speci men Type: BLOOD SPECIMEN Performed By: #### 5 7021-8 #### [facility] CLIA [id number] [address] [place] [address] WBC (Bld) [#/Vol] 5.94 10*3/uL Normal 3.70-11.00 [facility] Comment on above: Order Comment: Speci men Type: BLOOD SPECIMEN Performed By: #### 5 7021-8 #### [facility] CLIA [id number] [address] [place] [address] CT BRAIN WO IVCONon 09-13-[address] BRAIN WO IVCON * * *Final Report* * * DATE OF EXAM: Sep 12 2020 1:00PM [facility] 0504 - CT BRAIN WO IVCON / [...] clear. The visualized paranasal sinuses are clear. Television Installer (topogram) images: No additional findings. IMPRESSION: 1. No CT evidence of acute intracranial abnormalities. 2. Small area of presumed encephalomalacia within right occipital lobe posteriorly. Clinical correlation is recommended. 3. Presumed postsurgical changes of right orbits are partially imaged. Mergers And Acquisitions Attorney: PSCB Transcribe Date/Time: Sep 12 2020 1:04P Dictated by : ELIOT STERLING MD This examination was interpreted and the report reviewed and electronically signed by: ELIOT STERLING MD on Sep 12 2020 1:12PM EST [id number] Normal [facility] CT CERVICAL SPINE WO IVCONon 09-12-2020 CT CERVICAL SPINE WO IVCON * * *Final Report* * * DATE OF EXAM: Sep 12 2020 1:00PM [facility] 0505 - CT CERVICAL SPINE WO IVCON [...] Counting reference: Craniocervical junction. Anatomic Variants: None. Television Installer (topogram) images: No additional findings. Alignment: Grade [...] vertebrae with counting from the craniocervical junction. Mergers And Acquisitions Attorney: ANGEL Transcribe Date/Time: Sep 12 2020 1:12P Dictated by : ELIOT STERLING MD This examination was interpreted and the report reviewed and electronically signed by: ELIOT STERLING MD on Sep 12 2020 1:28PM EST [id number] Normal [facility] ED NOTEon 09-12-2020 ED NOTE HNO ID: [id number] Author: Ursula De León RN Service: Emergency Medicine Author Type: Registered Nurse Type: ED Notes Filed: 09/12/2020 1:53 PM Note Text: Normal [facility] ED NOTE HNO ID: [id number] Author: Griselda Gaviria RN Service: Emergency Medicine Author Type: Registered Nurse Type: ED Notes Filed: 09/12/2020 11:45 AM Note Text: Pt c/o frequent falls, injury to right shoulder. Pt also c/o possible UTI-having urinary frequency. Normal [facility] ED PROV NOTEon 09-12-2020 ED PROV NOTE HNO ID: [id number] Author: Sneha Jett DO Service: Emergency Medicine [...] (135 lb) (more content not included)... Normal [facility] Urinalysis complete panel (U )on 09-12-2020 Bacteria LM.HPF (Urine sed) [#/Area] Moderate Abnormal None Seen [facility] Comment on above: Order Comment: Speci men Type: URINE SPECIMEN Performed By: #### 2 4356-8 #### [facility] CLIA [id number] [address] [place] [address] [place] Bilirubin Ql (U) Negative Normal Negative [facility] Comment on above: Order Comment: Speci men Type: URINE SPECIMEN Performed By: #### 2 4356-8 #### [facility] CLIA [id number] [address] [place] [address] [place] Clarity (Unsp spec) Cloudy Abnormal Clear [facility] Comment on above: Order Comment: Speci men Type: URINE SPECIMEN Performed By: #### 2 4356-8 #### [facility] CLIA [id number] [address] [place] [address] [place] Color (U) Yellow Normal Yellow [facility] Comment on above: Order Comment: Speci men Type: URINE SPECIMEN Performed By: #### 2 4356-8 #### [facility] CLIA [id number] [address] [address] [place] [facility] Epithelial cells LM.HPF (Urine sed) [#/Area] Few Normal [facility] Comment on above: Order Comment: Speci men Type: URINE SPECIMEN Performed By: #### 2 4356-8 #### [facility] CLIA [id number] [address] [address] [facility] Glucose Test strip (U) [Mass/Vol] Negative Normal Negative [facility] Comment on above: Order Comment: Speci men Type: URINE SPECIMEN Performed By: #### 2 4356-8 #### [facility] CLIA [id number] [address] [address] [place] [facility] Hemoglobin Ql (U) Trace Abnormal Negative [facility] Comment on above: Order Comment: Speci men Type: URINE SPECIMEN Performed By: #### 2 4356-8 #### [facility] CLIA [id number] [address] [address] [place] OF [facility] Ketones Ql (U) Negative Normal Negative [facility] Comment on above: Order Comment: Speci men Type: URINE SPECIMEN Performed By: #### 2 4356-8 #### [facility] CLIA [id number] [address] [address] [place] Leukocyte esterase Test strip Ql (U) 3+ Abnormal Negative [facility] Comment on above: Order Comment: Speci men Type: URINE SPECIMEN Performed By: #### 2 4356-8 #### [facility] CLIA [id number] [address] [place] [address] [place] Nitrite Ql (U) Negative Normal Negative [facility] Comment on above: Order Comment: Speci men Type: URINE SPECIMEN Performed By: #### 2 4356-8 #### [facility] CLIA [id number] [address] [place] [address] [place] pH (U) 6.0 [pH] Normal 5.0-8.0 [facility] Comment on above: Order Comment: Speci men Type: URINE SPECIMEN Performed By: #### 2 4356-8 #### [facility] CLIA [id number] [address] [place] [address] Protein (U) [Mass/Vol] Negative Normal Negative [facility] Comment on above: Order Comment: Speci men Type: URINE SPECIMEN Performed By: #### 2 4356-8 #### [facility] CLIA [id number] [address] [place] [address] RBC LM.HPF (Urine sed) [#/Area] 0-3 /HPF Normal 0-3 /HPF [facility] Comment on above: Order Comment: Speci men Type: URINE SPECIMEN Performed By: #### 2 4356-8 #### [facility] CLIA [id number] [address] [place] [address] Specific gravity (U) [Rel density] 1.015 Normal 1.005-1.030 [facility] Comment on above: Order Comment: Speci men Type: URINE SPECIMEN Performed By: #### 2 4356-8 #### [facility] CLIA [id number] [address] [place] [address] Urobilinogen Ql (U) 0.2 EU/dL Normal 0.2-1.0 EU/dL [facility] Comment on above: Order Comment: Speci men Type: URINE SPECIMEN Performed By: #### 2 4356-8 #### [facility] CLIA [id number] [address] [place] [address] WBC LM.HPF (Urine sed) [#/Area] 11-25 /HPF Abnormal 0-5 /HPF [facility] Comment on above: Order Comment: Speci men Type: URINE SPECIMEN Performed By: #### 2 4356-8 #### [facility] CLIA [id number] [address] [place] [address] XR SHLDR >/=3V AP/HECTOR AP/OTH R RTon 09-12-2020 XR SHLDR >/=3V AP/HECTOR AP/OTHR RT * * *Final Report* * * DATE OF EXAM: Sep 12 2020 12:48PM [facility] 5253 - XR SHLDR >/=3V AP/HECTOR AP/OTHR [...] are seen. IMPRESSION: No acute osseous abnormality. Mergers And Acquisitions Attorney: PSCB Transcribe Date/Time: Sep 12 2020 12:55P Dictated by : SHANON CARTER MD This examination was interpreted and the report reviewed and electronically signed by: SHANON CARTER MD on Sep 12 2020 12:56PM EST [id number] Normal [facility] POCT Creatinineon 06-06-2020 Creatinine [Mass/Vol] 0.8 mg/dL 0.6 - 1.4 mg/dL [email or web address] Work Phone: Comment on above: Performed by [employer] [facility] CLIA ID:[id number] [facility] [place] [place] GFR/1.73 sq M predicted among blacks MDRD (S/P/Bld) [Vol rate/Area] mL/min/{1.73_m2} >60 mL/min [employer] Work Phone: GFR/1.73 sq M predicted among non-blacks MDRD (S/P/Bld) [Vol rate/Area] 78.2 mL/min/{1.73_m2} >60 [email or web address] Work Phone: Comment on above: KDIGO guidelines [...] renal tubular creatinine secretion. Test Performed by [facility], [email or web address] Work Phone: Brain Natriuretic Peptideon 03-16-2020 Natriuretic peptide B (Bld) [Mass/Vol] 100 pg/mL 0 - 125 pg/mL [place] Test Performed by [facility], [address] [place], [address] COVID-19, Rapidon 03-16-2020 Sodium [Moles/Vol] see below [place], [place] Comment on above: Not Detected Expected Result: Not Detected _ Isothermal nucleic acid amplification performed on the [employer] System by the [facility] Negative results do not preclude SARS-CoV-2 infection and should not be used as the sole basis for treatment or other patient management decisions. This assay was developed by [employer] and distributed under an Emergency Use Authorization (EUA) granted by the FDA for the qualitative detection of SARS-CoV-2 nucleic acid. Provider and patient fact sheets can be found at https://www.fda.gov/media/145490/download and https://www.fda.gov/media/175998/download. Test Performed by [facility], [address] Comprehensive Metabolic Pane cory 03-16-2020 Albumin [Mass/Vol] 3.2 g/dL Low 3.5 - 5 g/dL [place], [place] ALP [Catalytic activity/Vol] 98 U/L 38 - 126 U/L [place] ALT [Catalytic activity/Vol] 18 U/L 0 - 34 U/L [place] Comment on above: The ALT test is perf ormed by an updated assay method. Please note that the reference intervals have been changed and are now sex specific. Anion gap [Moles/Vol] 6 mmol/L [place], [place] AST [Catalytic activity/Vol] 27 U/L 15 - 46 U/L [place] Bilirubin Ql (U) 0.1 mg/dL Low 0.2 - 1.3 mg/dL [place] Calcium [Mass/Vol] 8.7 mg/dL 8.4 - 10. 4 mg/dL [place] Chloride [Moles/Vol] 104 mmol/L 98 - 10 7 mmol/L [place] CO2 [Moles/Vol] 29 mmol/L 22 - 30 mmol/L [place] Creatinine [Mass/Vol] 0.85 mg/dL 0.52 - 1.25 mg/dL [place] EGFR IF NonAfrican [place] 72.8 mL/min >60 [place] Comment on above: KDIGO guidelines pro [...] MDRD (S/P/Bld) [Vol rate/Area] 84.3 mL/min/{1.73_m2} >60 [place] Glucose [Mass/Vol] 96 mg/dL 70 - 100 mg/dL [place] Interpretation and review of laboratory results Abnormal [place] Potassium [Moles/Vol] 4.1 mmol/L 3.5 - 5.1 mmol/L [place] Protein [Mass/Vol] 6.0 g/dL Low 6.3 - 8.2 g/dL [place] Sodium [Moles/Vol] 138 mmol/L 135 - 145 mmol/L [place] Urea nitrogen [Mass/Vol] 14 mg/dL 7 - 20 mg/d L [place] Test Performed by [facility], [address], [place], [place] [address] [place] Hemogram (CBC) w/Auto Diffon 03-16-2020 Absolute Baso # 0.0 10*3/uL 0 - 0.2 10*3/uL [place] Absolute Neut # 5.0 10*3/uL 1.8 - 7 10*3/uL [place] Basophils/100 WBC (Bld) 0.5 % 0 - 2 % [place] Eosinophils (Bld) [#/Vol] 0.1 10*3/uL 0 - 0.5 10*3/uL [place] Eosinophils/100 WBC (Bld) 1.7 % 1 - 6 % [place] Erythrocyte distribution width (RBC) [Ratio] 21.1 % High 11.5 - 14.5 % [place] Granulocytes/100 WBC (Bld) 76.2 % 40 - 80 % [place] Hematocrit (Bld) [Volume fraction] 27.3 % Low 35 - 47 % [place] Hemoglobin (Bld) [Mass/Vol] 8.9 g/dL Low 11.7 - 16 g/dL [place] Interpretation and review of laboratory results Abnormal [place] Lymphocytes (Bld) [#/Vol] 0.6 10*3/uL Low 1 - 4.3 10*3/uL [place] Lymphocytes/100 WBC (Bld) 9.5 % Low 20 - 40 % [place] MCH (RBC) [Entitic mass] 30.6 pg 26 - 34 pg [place] MCHC (RBC) [Mass/Vol] 32.7 % 32 - 36 % [place] MCV (RBC) [Entitic vol] 93.4 fL 79 - 98 fL [place] Monocytes (Bld) [#/Vol] 0.8 10*3/uL 0 - 0.8 10*3/uL [place] Monocytes/100 WBC (Bld) 12.1 % High 2 - 10 % [place] Platelet mean volume (Bld) [Entitic vol] 6.9 fL Low 7.4 - 10.4 fL [place] Platelets (Bld) [#/Vol] 235 10*3/uL 140 - 440 10*3/uL [place] RBC (Bld) [#/Vol] 2.93 10*6/uL Low 3.8 - 5.2 10*6/uL [place] WBC (Bld) [#/Vol] 6.6 10*3/uL 3.6 - 10.7 10*3/uL [place] Test Performed by [facility] [employer] [facility], [address] Metabolic Panelon 03-16-2020 Sodium [Moles/Vol] Slight [place] RBC MORPHOLOGYon 03-16-2020 Anisocytosis Ql (Bld) Moderate [place] RBC morphology finding Nom (Bld) ABNORMAL [place] Test Performed by [facility] [employer] [facility], [address] Troponin x1on 03-16-2020 Troponin I.cardiac [Mass/Vol] ng/mL 0 - 0.034 ng/mL [place] Comment on above: . Test Performed by [facility], [address] XR CHEST PORTABLEon 03-16-20 Patient Name: GONZALO DELUCA Diagnostic Radiology ACCESSION EXAM DATE/TIME PROCEDURE ORDERING PROVIDER [id number] 03/16/2020 14:04 EST CR Chest Portable RODRÍGUEZ SOLIZ AMY L CPT code 69998 Reason For Exam (CR Chest Portable) Cough [...] JOHN Transcribed Date and Time: 03/16/2020 2:16 [place] Real [facility] Incoming Radiology Results From [facility] - 03/16/2020 2:16 PM EST Patient Name: GONZALO DELUCA Diagnostic Radiology ACCESSION EXAM DATE/TIME PROCEDURE ORDERING PROVIDER [id number] 03/16/2020 14:04 EST CR Chest Portable RODRÍGUEZ SOLIZ AMY L CPT code 09370 Reason For Exam (CR Chest Portable) Cough [...] JOHN Transcribed Date and Time: 03/16/2020 2:16 [place] CBC Auto Differentialon 12-0 Absolute Baso # 0.0 10*3/uL 0 - 0.2 10*3/uL [place] Absolute Neut # 2.5 10*3/uL 1.8 - 7 10*3/uL [place] Basophils/100 WBC (Bld) 0.5 % 0 - 2 % [place] Eosinophils (Bld) [#/Vol] 0.2 10*3/uL 0 - 0.5 10*3/uL [place] Eosinophils/100 WBC (Bld) 6.1 % High 1 - 6 % [place] Erythrocyte distribution width (RBC) [Ratio] 16.2 % High 11.5 - 14.5 % [place] Granulocytes/100 WBC (Bld) 70.6 % 40 - 80 % [place] Hematocrit (Bld) [Volume fraction] 29.6 % Low 35 - 47 % [place] Hemoglobin (Bld) [Mass/Vol] 9.8 g/dL Low 11.7 - 16 g/dL [place] Interpretation and review of laboratory results Abnormal [place] Lymphocytes (Bld) [#/Vol] 0.5 10*3/uL Low 1 - 4.3 10*3/uL [place] Lymphocytes/100 WBC (Bld) 13.0 % Low 20 - 40 % [place] MCH (RBC) [Entitic mass] 29.6 pg 26 - 34 pg [place] MCHC (RBC) [Mass/Vol] 33.0 % 32 - 36 % [place] MCV (RBC) [Entitic vol] 89.6 fL 79 - 98 fL [place] Monocytes (Bld) [#/Vol] 0.3 10*3/uL 0 - 0.8 10*3/uL [place] Monocytes/100 WBC (Bld) 9.8 % 2 - 10 % [place] Platelet mean volume (Bld) [Entitic vol] 7.5 fL 7.4 - 10.4 fL [place] Platelets (Bld) [#/Vol] 155 10*3/uL 140 - 440 10*3/uL [place] RBC (Bld) [#/Vol] 3.30 10*6/uL Low 3.8 - 5.2 10*6/uL [place] WBC (Bld) [#/Vol] 3.5 10*3/uL Low 3.6 - 10.7 10*3/uL [place] Test Performed by [facility], [address] [place] [id number] [place] [address] Comp Metabolic Panelon 02-20 ALP [Catalytic activity/Vol] 89 U/L Normal 38-126 [facility] Comment on above: Performed By: #### C MP3, MG3, HEMDF ####[address] [address] [place], [place] ALT [Catalytic activity/Vol] 18 U/L Normal 0-34 [facility] Comment on above: Result Comment: The ALT test is performed by an updated assay method. Please note that the reference intervals have been changed and are now sex specific. Performed By: #### C MP3, MG3, HEMDF ####[facility] [employer] [id number] [place], [place] Calcium [Mass/Vol] 8.8 mg/dL Normal 8.4-10.4 [facility] Comment on above: Performed By: #### C MP3, MG3, HEMDF ####[address] [place], [place] Glucose [Mass/Vol] 79 mg/dL Normal 70-100 [facility] Comment on above: Performed By: #### C MP3, MG3, HEMDF ####[address] [place], [place] Protein [Mass/Vol] 6.0 g/dL Low 6.3-8.2 [facility] Comment on above: Performed By: #### C MP3, MG3, HEMDF ####[address] [place], [place] Urea nitrogen [Mass/Vol] 11 mg/dL Normal 7-20 [facility] Comment on above: Performed By: #### C MP3, MG3, HEMDF ####[address] [place], [place] Anion gap [Moles/Vol] 5 Normal [facility] Comment on above: Performed By: #### C MP3, MG3, HEMDF ####[address] [place], [place] AST [Catalytic activity/Vol] 35 U/L Normal 15-46 [facility] Comment on above: Performed By: #### C MP3, MG3, HEMDF ####[address] [place], [place] Bilirubin [Mass/Vol] 0.3 mg/dL Normal 0.2-1.3 [facility] Comment on above: Performed By: #### C MP3, MG3, HEMDF ####[address] [place], [place] CO2 [Moles/Vol] 31 mmol/L High 22-30 [facility] Comment on above: Performed By: #### C MP3, MG3, HEMDF ####[address] [place], [place] Creatinine [Mass/Vol] 0.64 mg/dL Normal 0.52-1.25 [facility] Comment on above: Performed By: #### C MP3, MG3, HEMDF ####[address] [place] [address] GFR/1.73 sq M predicted among blacks MDRD (S/P/Bld) [Vol rate/Area] mL/min/{1.73_m2} Normal >60 [facility] Comment on above: Performed By: #### C MP3, MG3, HEMDF ####[address] [place] [address] GFR/1.73 sq M predicted among non-blacks MDRD (S/P/Bld) [Vol rate/Area] mL/min/{1.73_m2} Normal >60 [facility] Comment on above: Result Comment: KDIG [...] Performed By: #### C MP3, MG3, HEMDF ####[facility] [employer] [id number] [place], [place] Chloride [Moles/Vol] 101 mmol/L Normal 98-107 [facility] Comment on above: Performed By: #### C MP3, MG3, HEMDF ####[address] [place], [place] Potassium [Moles/Vol] 4.2 mmol/L Normal 3.5-5.1 [facility] Comment on above: Performed By: #### C MP3, MG3, HEMDF ####[address] [place] [address] Sodium [Moles/Vol] 137 mmol/L Normal 135-145 [facility] Comment on above: Performed By: #### C MP3, MG3, HEMDF ####[facility] [place] [address] Albumin [Mass/Vol] 2.2 g/dL Low 3.5-5.0 [facility] Comment on above: Performed By: #### C MP3, MG3, HEMDF ####[facility] [place] [address] Comprehensive Metabolic Pane cory 02-21-2020 Albumin [Mass/Vol] 2.2 g/dL Low 3.5 - 5 g/dL [place] ALP [Catalytic activity/Vol] 89 U/L 38 - 126 U/L [place] ALT [Catalytic activity/Vol] 18 U/L 0 - 34 U/L [place] Comment on above: The ALT test is perf ormed by an updated assay method. Please note that the reference intervals have been changed and are now sex specific. Anion gap [Moles/Vol] 5 mmol/L [place] AST [Catalytic activity/Vol] 35 U/L 15 - 46 U/L [place] Bilirubin Ql (U) 0.3 mg/dL 0.2 - 1.3 mg/dL [place] Calcium [Mass/Vol] 8.8 mg/dL 8.4 - 10. 4 mg/dL [place] Chloride [Moles/Vol] 101 mmol/L 98 - 10 7 mmol/L [place] CO2 [Moles/Vol] 31 mmol/L High 22 - 30 mmol/L [place] Creatinine [Mass/Vol] 0.64 mg/dL 0.52 - 1.25 mg/dL [place] EGFR IF NonAfrican [place] >90.0 >60 mL/min [place] Comment on above: KDIGO guidelines pro [...] MDRD (S/P/Bld) [Vol rate/Area] mL/min/{1.73_m2} >60 mL/min [place] Glucose [Mass/Vol] 79 mg/dL 70 - 100 mg/dL [place] Interpretation and review of laboratory results Abnormal [place] Potassium [Moles/Vol] 4.2 mmol/L 3.5 - 5.1 mmol/L [place] Protein [Mass/Vol] 6.0 g/dL Low 6.3 - 8.2 g/dL [place] Sodium [Moles/Vol] 137 mmol/L 135 - 145 mmol/L [place] Urea nitrogen [Mass/Vol] 11 mg/dL 7 - 20 mg/d L [place] Hemogram w/ Autodiffon 02-20 Abs Baso Cnt 0.0 10*3/uL Normal 0.0-0.2 [facility] Comment on above: Performed By: #### C MP3, MG3, HEMDF #### [facility] [address] [place] [address] Abs Neutrophile Cnt 2.5 10*3/uL Normal 1.8-7.0 [facility] Comment on above: Performed By: #### C MP3, MG3, HEMDF #### [facility] [address] [place] [address] Basophils/100 WBC (Bld) 0.5 % Normal 0.0-2.0 [facility] Comment on above: Performed By: #### C MP3, MG3, HEMDF #### [place] [address] [place], [place] Eosinophils (Bld) [#/Vol] 0.2 10*3/uL Normal 0.0-0.5 [facility] Comment on above: Performed By: #### C MP3, MG3, HEMDF #### [place] [address] [place], [place] Eosinophils/100 WBC (Bld) 6.1 % High 1.0-6.0 [facility] Comment on above: Performed By: #### C MP3, MG3, HEMDF #### [address] [address] [place], [place] Erythrocyte distribution width (RBC) [Ratio] 16.2 % High 11.5-14.5 [facility] Comment on above: Performed By: #### C MP3, MG3, HEMDF #### [address] [place], [place] Granulocytes/100 WBC (Bld) 70.6 % Normal 40.0-80.0 [facility] Comment on above: Performed By: #### C MP3, MG3, HEMDF #### [address] [address] [place] Hematocrit (Bld) [Volume fraction] 29.6 % Low 35.0-47.0 [facility] Comment on above: Performed By: #### C MP3, MG3, HEMDF #### [address] [address] [place], [place] Hemoglobin (Bld) [Mass/Vol] 9.8 g/dL Low 11.7-16.0 [facility] Comment on above: Performed By: #### C MP3, MG3, HEMDF #### [address] [address] [place] Lymphocytes (Bld) [#/Vol] 0.5 10*3/uL Low 1.0-4.3 [facility] Comment on above: Performed By: #### C MP3, MG3, HEMDF #### [address] [address] [place], [place] Lymphocytes/100 WBC (Bld) 13.0 % Low 20.0-40.0 [facility] Comment on above: Performed By: #### C MP3, MG3, HEMDF #### [address] [address] [place] MCH (RBC) [Entitic mass] 29.6 pg Normal 26.0-34.0 [facility] Comment on above: Performed By: #### C MP3, MG3, HEMDF #### [address] [address] [place] MCHC (RBC) [Mass/Vol] 33.0 % Normal 32.0-36.0 [facility] Comment on above: Performed By: #### C MP3, MG3, HEMDF #### [address] [address] [place], [place] MCV (RBC) [Entitic vol] 89.6 fL Normal 79.0-98.0 [facility] Comment on above: Performed By: #### C MP3, MG3, HEMDF #### [address] [address] [place] Monocytes (Bld) [#/Vol] 0.3 10*3/uL Normal 0.0-0.8 [facility] Comment on above: Performed By: #### C MP3, MG3, HEMDF #### [address] [address] [place] Monocytes/100 WBC (Bld) 9.8 % Normal 2.0-10.0 [facility] Comment on above: Performed By: #### C MP3, MG3, HEMDF #### [address] [address] [place] Platelet mean volume (Bld) [Entitic vol] 7.5 fL Normal 7.4-10.4 [facility] Comment on above: Performed By: #### C MP3, MG3, HEMDF #### [address] [address] [place] Platelets (Bld) [#/Vol] 155 10*3/uL Normal 140-440 [facility] Comment on above: Performed By: #### C MP3, MG3, HEMDF #### [address] [place] [address] RBC (Bld) [#/Vol] 3.30 10*6/uL Low 3.80-5.20 [facility] Comment on above: Performed By: #### C MP3, MG3, HEMDF #### [address] [place] [address] WBC (Bld) [#/Vol] 3.5 10*3/uL Low 3.6-10.7 [facility] Comment on above: Performed By: #### C MP3, MG3, HEMDF #### [address] [place] [address] Magnesiumon 02-21-2020 Magnesium [Mass/Vol] 1.6 mg/dL Normal 1.6-2.3 [facility] Comment on above: Performed By: #### C MP3, MG3, HEMDF #### [address] [place] [address] Magnesium [Mass/Vol] 1.6 mg/dL 1.6 - 2 .3 mg/dL [place] Otheron 02-21-2020 Test Performed by [facility], [address] [place] [id number] [place], [place] CBC Auto Differentialon 01-19 Absolute Baso # 0.0 10*3/uL 0 - 0.2 10*3/uL [place] Absolute Neut # 5.3 10*3/uL 1.8 - 7 10*3/uL [place] Basophils/100 WBC (Bld) 0.4 % 0 - 2 % [place] Eosinophils (Bld) [#/Vol] 0.1 10*3/uL 0 - 0.5 10*3/uL [place] Eosinophils/100 WBC (Bld) 1.0 % 1 - 6 % [place] Erythrocyte distribution width (RBC) [Ratio] 15.0 % High 11.5 - 14.5 % [place] Granulocytes/100 WBC (Bld) 84.0 % High 40 - 80 % [place] Hematocrit (Bld) [Volume fraction] 34.1 % Low 35 - 47 % [place] Hemoglobin (Bld) [Mass/Vol] 11.3 g/dL Low 11.7 - 16 g/dL [place] Lymphocytes (Bld) [#/Vol] 0.4 10*3/uL Low 1 - 4.3 10*3/uL [place] Lymphocytes/100 WBC (Bld) 5.7 % Low 20 - 40 % [place] MCH (RBC) [Entitic mass] 29.7 pg 26 - 34 pg [place] MCHC (RBC) [Mass/Vol] 33.0 % 32 - 36 % [place] MCV (RBC) [Entitic vol] 89.8 fL 79 - 98 fL [place], [place] Monocytes (Bld) [#/Vol] 0.6 10*3/uL 0 - 0.8 10*3/uL [place] Monocytes/100 WBC (Bld) 8.9 % 2 - 10 % [place] Platelet mean volume (Bld) [Entitic vol] 6.7 fL Low 7.4 - 10.4 fL [place] Platelets (Bld) [#/Vol] 315 10*3/uL 140 - 440 10*3/uL [place] RBC (Bld) [#/Vol] 3.79 10*6/uL Low 3.8 - 5.2 10*6/uL [place] WBC (Bld) [#/Vol] 6.3 10*3/uL 3.6 - 10.7 10*3/uL [place] Comprehensive Metabolic Pane cory 02-07-2020 Albumin [Mass/Vol] 3.5 g/dL 3.5 - 5 g/dL [place] ALP [Catalytic activity/Vol] 91 U/L 38 - 126 U/L [place] ALT [Catalytic activity/Vol] 21 U/L 0 - 34 U/L [place] Comment on above: The ALT test is perf ormed by an updated assay method. Please note that the reference intervals have been changed and are now sex specific. Anion gap [Moles/Vol] 4 mmol/L [place] AST [Catalytic activity/Vol] 24 U/L 15 - 46 U/L [place] Bilirubin Ql (U) 0.5 mg/dL 0.2 - 1.3 mg/dL [place] Calcium [Mass/Vol] 9.1 mg/dL 8.4 - 10. 4 mg/dL [place] Chloride [Moles/Vol] 101 mmol/L 98 - 10 7 mmol/L [place] CO2 [Moles/Vol] 33 mmol/L High 22 - 30 mmol/L [place] Creatinine [Mass/Vol] 0.66 mg/dL 0.52 - 1.25 mg/dL [place] EGFR IF NonAfrican [place] >90.0 >60 mL/min [place] Comment on above: KDIGO guidelines pro [...] MDRD (S/P/Bld) [Vol rate/Area] mL/min/{1.73_m2} >60 mL/min [place] Glucose [Mass/Vol] 97 mg/dL 70 - 100 mg/dL [place] Potassium [Moles/Vol] 3.9 mmol/L 3.5 - 5.1 mmol/L [place] Protein [Mass/Vol] 6.1 g/dL Low 6.3 - 8.2 g/dL [place] Sodium [Moles/Vol] 139 mmol/L 135 - 145 mmol/L [place] Urea nitrogen [Mass/Vol] 19 mg/dL 7 - 20 mg/d L [place] Magnesiumon 02-07-2020 Magnesium [Mass/Vol] 1.5 mg/dL Low 1.6 - 2 .3 mg/dL [place] Otheron 02-07-2020 Interpretation and review of laboratory results Abnormal [place] Test Performed by [facility], [address] [place] [id number] [place] [address] CBC Auto Differentialon 01-19 Absolute Baso # 0.0 10*3/uL 0 - 0.2 10*3/uL [place] Absolute Neut # 7.6 10*3/uL High 1.8 - 7 10*3/uL [place] Basophils/100 WBC (Bld) 0.1 % 0 - 2 % [place] Eosinophils (Bld) [#/Vol] 0.0 10*3/uL 0 - 0.5 10*3/uL [place] Eosinophils/100 WBC (Bld) 0.0 % Low 1 - 6 % [place] Erythrocyte distribution width (RBC) [Ratio] 14.3 % 11.5 - 14.5 % [place] Granulocytes/100 WBC (Bld) 94.4 % High 40 - 80 % [place] Hematocrit (Bld) [Volume fraction] 35.2 % 35 - 47 % [place] Hemoglobin (Bld) [Mass/Vol] 11.3 g/dL Low 11.7 - 16 g/dL [place] Interpretation and review of laboratory results Abnormal [place] Lymphocytes (Bld) [#/Vol] 0.2 10*3/uL Low 1 - 4.3 10*3/uL [place] Lymphocytes/100 WBC (Bld) 2.8 % Low 20 - 40 % [place] MCH (RBC) [Entitic mass] 29.2 pg 26 - 34 pg [place] MCHC (RBC) [Mass/Vol] 32.2 % 32 - 36 % [place] MCV (RBC) [Entitic vol] 90.7 fL 79 - 98 fL [place], [place] Monocytes (Bld) [#/Vol] 0.2 10*3/uL 0 - 0.8 10*3/uL [place] Monocytes/100 WBC (Bld) 2.7 % 2 - 10 % [place] Platelet mean volume (Bld) [Entitic vol] 8.1 fL 7.4 - 10.4 fL [place] Platelets (Bld) [#/Vol] 252 10*3/uL 140 - 440 10*3/uL [place] RBC (Bld) [#/Vol] 3.88 10*6/uL 3.8 - 5.2 10*6/uL [place] WBC (Bld) [#/Vol] 8.1 10*3/uL 3.6 - 10.7 10*3/uL [place] Test Performed by [facility], [address] [place] [address] Comp Metabolic Panelon 01-30 ALP [Catalytic activity/Vol] 112 U/L Normal 38-126 [facility] Comment on above: Performed By: #### C MP3, MG3, HEMDF #### [address] ALT [Catalytic activity/Vol] 20 U/L Normal 0-34 [facility] Comment on above: Result Comment: The ALT test is performed by an updated assay method. Please note that the reference intervals have been changed and are now sex specific. Performed By: #### C MP3, MG3, HEMDF #### [address] [id number] Calcium [Mass/Vol] 9.3 mg/dL Normal 8.4-10.4 [facility] Comment on above: Performed By: #### C MP3, MG3, HEMDF #### [facility] [address] [place], [place] Glucose [Mass/Vol] 119 mg/dL High 70-100 [facility] Comment on above: Performed By: #### C MP3, MG3, HEMDF #### [facility] [address] [place], [place] Urea nitrogen [Mass/Vol] 16 mg/dL Normal 7-20 [facility] Comment on above: Performed By: #### C MP3, MG3, HEMDF #### [facility] [address] [place], [place] Anion gap [Moles/Vol] 9 Normal [facility] Comment on above: Performed By: #### C MP3, MG3, HEMDF #### [facility] [address] [place], [place] AST [Catalytic activity/Vol] 26 U/L Normal 15-46 [facility] Comment on above: Performed By: #### C MP3, MG3, HEMDF #### [facility] [address] [place], [place] Bilirubin [Mass/Vol] 0.2 mg/dL Normal 0.2-1.3 [facility] Comment on above: Performed By: #### C MP3, MG3, HEMDF #### [facility] [address] [place], [place] CO2 [Moles/Vol] 28 mmol/L Normal 22-30 [facility] Comment on above: Performed By: #### C MP3, MG3, HEMDF #### [facility] [address] [place], [place] Creatinine [Mass/Vol] 0.54 mg/dL Normal 0.52-1.25 [facility] Comment on above: Performed By: #### C MP3, MG3, HEMDF #### [facility] [address] [place], [place] GFR/1.73 sq M predicted among blacks MDRD (S/P/Bld) [Vol rate/Area] mL/min/{1.73_m2} Normal >60 [facility] Comment on above: Performed By: #### C MP3, MG3, HEMDF #### [address] [address] GFR/1.73 sq M predicted among non-blacks MDRD (S/P/Bld) [Vol rate/Area] mL/min/{1.73_m2} Normal >60 [facility] Comment on above: Result Comment: KDIG [...] By: #### C MP3, MG3, HEMDF #### [address] Protein [Mass/Vol] 6.9 g/dL Normal 6.3-8.2 [facility] Comment on above: Performed By: #### C MP3, MG3, HEMDF #### [address] Chloride [Moles/Vol] 102 mmol/L Normal 98-107 [facility] Comment on above: Performed By: #### C MP3, MG3, HEMDF #### [address] Potassium [Moles/Vol] 4.5 mmol/L Normal 3.5-5.1 [facility] Comment on above: Performed By: #### C MP3, MG3, HEMDF #### [facility] [address] [place] [address] Sodium [Moles/Vol] 139 mmol/L Normal 135-145 [facility] Comment on above: Performed By: #### C MP3, MG3, HEMDF #### [facility] [address] [place] [address] Albumin [Mass/Vol] 3.8 g/dL Normal 3.5-5.0 [facility] Comment on above: Performed By: #### C MP3, MG3, HEMDF #### [facility] [address] [place] [address] Comprehensive Metabolic Pane cory 01-31-2020 Albumin [Mass/Vol] 3.8 g/dL 3.5 - 5 g/dL [place] ALP [Catalytic activity/Vol] 112 U/L 38 - 126 U/L [place] ALT [Catalytic activity/Vol] 20 U/L 0 - 34 U/L [place] Comment on above: The ALT test is perf ormed by an updated assay method. Please note that the reference intervals have been changed and are now sex specific. Anion gap [Moles/Vol] 9 mmol/L [place] AST [Catalytic activity/Vol] 26 U/L 15 - 46 U/L [place] Bilirubin Ql (U) 0.2 mg/dL 0.2 - 1.3 mg/dL [place] Calcium [Mass/Vol] 9.3 mg/dL 8.4 - 10. 4 mg/dL [place] Chloride [Moles/Vol] 102 mmol/L 98 - 10 7 mmol/L [place] CO2 [Moles/Vol] 28 mmol/L 22 - 30 mmol/L [place] Creatinine [Mass/Vol] 0.54 mg/dL 0.52 - 1.25 mg/dL [place] EGFR IF NonAfrican [place] >90.0 >60 mL/min [place] Comment on above: KDIGO guidelines pro [...] MDRD (S/P/Bld) [Vol rate/Area] mL/min/{1.73_m2} >60 mL/min [place] Glucose [Mass/Vol] 119 mg/dL High 70 - 100 mg/dL [place] Interpretation and review of laboratory results Abnormal [place] Potassium [Moles/Vol] 4.5 mmol/L 3.5 - 5.1 mmol/L [place] Protein [Mass/Vol] 6.9 g/dL 6.3 - 8.2 g/dL [place] Sodium [Moles/Vol] 139 mmol/L 135 - 145 mmol/L [place] Urea nitrogen [Mass/Vol] 16 mg/dL 7 - 20 mg/d L [place] Hemogram w/ Autodiffon 01-30 Abs Baso Cnt 0.0 10*3/uL Normal 0.0-0.2 [facility] Comment on above: Performed By: #### C MP3, MG3, HEMDF #### [facility] [address] [place] [address] Abs Neutrophile Cnt 7.6 10*3/uL High 1.8-7.0 [facility] Comment on above: Performed By: #### C MP3, MG3, HEMDF #### [facility] [employer] [facility] [address] [place] [address] Basophils/100 WBC (Bld) 0.1 % Normal 0.0-2.0 [facility] Comment on above: Performed By: #### C MP3, MG3, HEMDF #### [address] [place], [place] Eosinophils (Bld) [#/Vol] 0.0 10*3/uL Normal 0.0-0.5 [facility] Comment on above: Performed By: #### C MP3, MG3, HEMDF #### [address] [place] Eosinophils/100 WBC (Bld) 0.0 % Low 1.0-6.0 [facility] Comment on above: Performed By: #### C MP3, MG3, HEMDF #### [address] [address] [place] Erythrocyte distribution width (RBC) [Ratio] 14.3 % Normal 11.5-14.5 [facility] Comment on above: Performed By: #### C MP3, MG3, HEMDF #### [address] [place] Granulocytes/100 WBC (Bld) 94.4 % High 40.0-80.0 [facility] Comment on above: Performed By: #### C MP3, MG3, HEMDF #### [address] Hematocrit (Bld) [Volume fraction] 35.2 % Normal 35.0-47.0 [facility] Comment on above: Performed By: #### C MP3, MG3, HEMDF #### [address] [address] [place] Hemoglobin (Bld) [Mass/Vol] 11.3 g/dL Low 11.7-16.0 [facility] Comment on above: Performed By: #### C MP3, MG3, HEMDF #### [address] [place] Lymphocytes (Bld) [#/Vol] 0.2 10*3/uL Low 1.0-4.3 [facility] Comment on above: Performed By: #### C MP3, MG3, HEMDF #### [address] [place] Lymphocytes/100 WBC (Bld) 2.8 % Low 20.0-40.0 [facility] Comment on above: Performed By: #### C MP3, MG3, HEMDF #### [address] [place] MCH (RBC) [Entitic mass] 29.2 pg Normal 26.0-34.0 [facility] Comment on above: Performed By: #### C MP3, MG3, HEMDF #### [address] MCHC (RBC) [Mass/Vol] 32.2 % Normal 32.0-36.0 [facility] Comment on above: Performed By: #### C MP3, MG3, HEMDF #### [address] MCV (RBC) [Entitic vol] 90.7 fL Normal 79.0-98.0 [facility] Comment on above: Performed By: #### C MP3, MG3, HEMDF #### [address] Monocytes (Bld) [#/Vol] 0.2 10*3/uL Normal 0.0-0.8 [facility] Comment on above: Performed By: #### C MP3, MG3, HEMDF #### [address] Monocytes/100 WBC (Bld) 2.7 % Normal 2.0-10.0 [facility] Comment on above: Performed By: #### C MP3, MG3, HEMDF #### [address] Platelet mean volume (Bld) [Entitic vol] 8.1 fL Normal 7.4-10.4 [facility] Comment on above: Performed By: #### C MP3, MG3, HEMDF #### [address] [address] [place] Platelets (Bld) [#/Vol] 252 10*3/uL Normal 140-440 [facility] Comment on above: Performed By: #### C MP3, MG3, HEMDF #### [facility] [address] [place], [place] RBC (Bld) [#/Vol] 3.88 10*6/uL Normal 3.80-5.20 [facility] Comment on above: Performed By: #### C MP3, MG3, HEMDF #### [address] [place] WBC (Bld) [#/Vol] 8.1 10*3/uL Normal 3.6-10.7 [facility] Comment on above: Performed By: #### C MP3, MG3, HEMDF #### [address] [place] Magnesiumon 01-31-2020 Magnesium [Mass/Vol] 1.8 mg/dL Normal 1.6-2.3 [facility] Comment on above: Performed By: #### C MP3, MG3, HEMDF #### [address] Magnesium [Mass/Vol] 1.8 mg/dL 1.6 - 2 .3 mg/dL [place] Otheron 01-31-2020 Test Performed by [address] [place] [address] [place] [address] [place], [place] CBC Auto Differentialon Absolute Baso # 0.0 10*3/uL 0 - 0.2 10*3/uL [place] Absolute Neut # 5.1 10*3/uL 1.8 - 7 10*3/uL [place] Basophils/100 WBC (Bld) 0.5 % 0 - 2 % [place] Eosinophils (Bld) [#/Vol] 0.5 10*3/uL 0 - 0.5 10*3/uL [place] Eosinophils/100 WBC (Bld) 6.7 % High 1 - 6 % [place] Erythrocyte distribution width (RBC) [Ratio] 14.5 % 11.5 - 14.5 % [place] Granulocytes/100 WBC (Bld) 73.3 % 40 - 80 % [place] Hematocrit (Bld) [Volume fraction] 35.8 % 35 - 47 % [place] Hemoglobin (Bld) [Mass/Vol] 11.5 g/dL Low 11.7 - 16 g/dL [place] Interpretation and review of laboratory results Abnormal [place] Lymphocytes (Bld) [#/Vol] 0.8 10*3/uL Low 1 - 4.3 10*3/uL [place] Lymphocytes/100 WBC (Bld) 12.2 % Low 20 - 40 % [place] MCH (RBC) [Entitic mass] 29.3 pg 26 - 34 pg [place] MCHC (RBC) [Mass/Vol] 32.2 % 32 - 36 % [place] MCV (RBC) [Entitic vol] 90.9 fL 79 - 98 fL [place], [place] Monocytes (Bld) [#/Vol] 0.5 10*3/uL 0 - 0.8 10*3/uL [place] Monocytes/100 WBC (Bld) 7.3 % 2 - 10 % [place] Platelet mean volume (Bld) [Entitic vol] 8.1 fL 7.4 - 10.4 fL [place] Platelets (Bld) [#/Vol] 219 10*3/uL 140 - 440 10*3/uL [place] RBC (Bld) [#/Vol] 3.94 10*6/uL 3.8 - 5.2 10*6/uL [place] WBC (Bld) [#/Vol] 6.9 10*3/uL 3.6 - 10.7 10*3/uL [place] Test Performed by [email or web address] [facility], [address] [place], [place], [place] [id number] [place] [address] Comprehensive Metabolic Pane cory 01-24-2020 Albumin [Mass/Vol] 3.9 g/dL 3.5 - 5 g/dL [place] ALP [Catalytic activity/Vol] 97 U/L 38 - 126 U/L [place] ALT [Catalytic activity/Vol] 22 U/L 0 - 34 U/L [place] Comment on above: The ALT test is perf ormed by an updated assay method. Please note that the reference intervals have been changed and are now sex specific. Anion gap [Moles/Vol] 7 mmol/L [place] AST [Catalytic activity/Vol] 27 U/L 15 - 46 U/L [place] Bilirubin Ql (U) 0.4 mg/dL 0.2 - 1.3 mg/dL [place] Calcium [Mass/Vol] 9.4 mg/dL 8.4 - 10. 4 mg/dL [place] Chloride [Moles/Vol] 102 mmol/L 98 - 10 7 mmol/L [place] CO2 [Moles/Vol] 31 mmol/L High 22 - 30 mmol/L [place] Creatinine [Mass/Vol] 0.73 mg/dL 0.52 - 1.25 mg/dL [place] EGFR IF NonAfrican [place] 87.5 mL/min >60 [place] Comment on above: KDIGO guidelines pro [...] MDRD (S/P/Bld) [Vol rate/Area] mL/min/{1.73_m2} >60 mL/min [place] Glucose [Mass/Vol] 106 mg/dL High 70 - 100 mg/dL [place] Interpretation and review of laboratory results Abnormal [place] Potassium [Moles/Vol] 4.3 mmol/L 3.5 - 5.1 mmol/L [place] Protein [Mass/Vol] 6.8 g/dL 6.3 - 8.2 g/dL [place] Sodium [Moles/Vol] 140 mmol/L 135 - 145 mmol/L [place] Urea nitrogen [Mass/Vol] 20 mg/dL 7 - 20 mg/d L [place] Magnesiumon 01-24-2020 Magnesium [Mass/Vol] 2.0 mg/dL 1.6 - 2 .3 mg/dL [place] Otheron 01-24-2020 Test Performed by [facility], [address] [place] [address] CBC Auto Differentialon 12-20 Absolute Baso # 0.1 10*3/uL 0 - 0.2 10*3/uL [place] Absolute Neut # 5.5 10*3/uL 1.8 - 7 10*3/uL [place] Basophils/100 WBC (Bld) 1.0 % 0 - 2 % [place] Eosinophils (Bld) [#/Vol] 1.2 10*3/uL High 0 - 0.5 10*3/uL [place] Eosinophils/100 WBC (Bld) 13.8 % High 1 - 6 % [place] Erythrocyte distribution width (RBC) [Ratio] 14.0 % 11.5 - 14.5 % [place] Granulocytes/100 WBC (Bld) 63.2 % 40 - 80 % [place] Hematocrit (Bld) [Volume fraction] 37.1 % 35 - 47 % [place] Hemoglobin (Bld) [Mass/Vol] 12.4 g/dL 11.7 - 16 g/dL [place] Interpretation and review of laboratory results Abnormal [place] Lymphocytes (Bld) [#/Vol] 1.3 10*3/uL 1 - 4.3 10*3/uL [place] Lymphocytes/100 WBC (Bld) 15.1 % Low 20 - 40 % [place] MCH (RBC) [Entitic mass] 30.2 pg 26 - 34 pg [place] MCHC (RBC) [Mass/Vol] 33.5 % 32 - 36 % [place] MCV (RBC) [Entitic vol] 90.0 fL 79 - 98 fL [place] Monocytes (Bld) [#/Vol] 0.6 10*3/uL 0 - 0.8 10*3/uL [place] Monocytes/100 WBC (Bld) 6.9 % 2 - 10 % [place] Platelet mean volume (Bld) [Entitic vol] 8.1 fL 7.4 - 10.4 fL [place] Platelets (Bld) [#/Vol] 224 10*3/uL 140 - 440 10*3/uL [place] RBC (Bld) [#/Vol] 4.12 10*6/uL 3.8 - 5.2 10*6/uL [place] WBC (Bld) [#/Vol] 8.7 10*3/uL 3.6 - 10.7 10*3/uL [place] Test Performed by [facility], [address] [place], [place] [id number] [place] [address] Comprehensive Metabolic Pane cory 01-17-2020 Albumin [Mass/Vol] 3.8 g/dL 3.5 - 5 g/dL [place] ALP [Catalytic activity/Vol] 99 U/L 38 - 126 U/L [place] ALT [Catalytic activity/Vol] 17 U/L 0 - 34 U/L [place] Comment on above: The ALT test is perf ormed by an updated assay method. Please note that the reference intervals have been changed and are now sex specific. Anion gap [Moles/Vol] 7 mmol/L [place] AST [Catalytic activity/Vol] 29 U/L 15 - 46 U/L [place] Bilirubin Ql (U) 0.3 mg/dL 0.2 - 1.3 mg/dL [place] Calcium [Mass/Vol] 8.7 mg/dL 8.4 - 10. 4 mg/dL [place] Chloride [Moles/Vol] 102 mmol/L 98 - 10 7 mmol/L [place] CO2 [Moles/Vol] 33 mmol/L High 22 - 30 mmol/L [place] Creatinine [Mass/Vol] 0.75 mg/dL 0.52 - 1.25 mg/dL [place] EGFR IF NonAfrican [place] 84.7 mL/min >60 [place] Comment on above: KDIGO guidelines pro [...] MDRD (S/P/Bld) [Vol rate/Area] mL/min/{1.73_m2} >60 mL/min [place] Glucose [Mass/Vol] 93 mg/dL 70 - 100 mg/dL [place] Interpretation and review of laboratory results Abnormal [place] Potassium [Moles/Vol] 2.8 mmol/L Low 3.5 - 5.1 mmol/L [place] Protein [Mass/Vol] 6.6 g/dL 6.3 - 8.2 g/dL [place] Sodium [Moles/Vol] 142 mmol/L 135 - 145 mmol/L [place] Urea nitrogen [Mass/Vol] 9 mg/dL 7 - 20 mg/d L [place] Magnesiumon 01-17-2020 Magnesium [Mass/Vol] 1.9 mg/dL 1.6 - 2 .3 mg/dL [place] Otheron 01-17-2020 [facility], [address] [place], [place] [id number] [place] [address] CT Nonbill Guide Rad Therapy on 12-26-2019 CT Nonbill Guide Rad Therapy Patient Name: GONZALO DELUCA CT Exam Date/Time 12/26/2019 11:38:[address] Nonbill Guide Rad Therapy Ordering Physician MD WU, BURKE E Accession Number [id number] Reason For Exam Endometriod Ca Report CT of the abdomen and pelvis without intravenous contrast, 12/26/2019. Reason for examination: Endometrial cancer. Patient for radiation therapy. COMPARISON: October 27, 2019. TECHNIQUE: Large ncsjj-oy-cwif 3 mm axial images were obtained through [...] Transcribed Date and Time: 12/26/2019 3:50 Normal [facility] Otheron 12-26-2019 Patient Name: GONZALO DELUCA ---CT--- Exam Date/Time 12/26/2019 11:38:[address] Nonbill Guide Rad Therapy Ordering Physician MD WU, BURKE E Accession Number [id number] Reason For Exam Endometriod Ca Report CT of the abdomen and pelvis without intravenous contrast, 12/26/2019. Reason for examination: Endometrial cancer. Patient for radiation therapy. COMPARISON: October 27, 2019. TECHNIQUE: Large qhnir-cc-ggpl 3 mm axial images were obtained through [...] M Transcribed Date and Time: 12/26/2019 3:50 [facility], [place] [facility], [facility] Incoming Radiology Results From [facility] - 12/26/2019 3:55 PM EDT Patient Name: GONZALO DELUCA ---CT--- Exam Date/Time 12/26/2019 11:38:[address] Nonbill Guide Rad Therapy Ordering Physician MD WU, BURKE E Accession Number [id number] Reason For Exam Endometriod Ca Report CT of the abdomen and pelvis without intravenous contrast, 12/26/2019. Reason for examination: Endometrial cancer. Patient for radiation therapy. COMPARISON: October 27, 2019. TECHNIQUE: Large yppss-eq-vxpu 3 mm axial images were obtained through [...] M Transcribed Date and Time: 12/26/2019 3:50 [facility] ONEL XA SPECIAL ANGIOGRAPHY PROCE DUREon 12-19-2019 Patient Name: GONZALO DELUCA ---Special Procedures--- Exam Date/Time 12/19/2019 14:31:06 EDT Exam XA Special Angiography Procedure Ordering Physician ZIYAD MENENDEZ Accession Number [id number] Reason For Exam Mediport placement Report LEFT [...] MALAY Transcribed Date and Time: 12/19/2019 2:32 [facility] [place] Incoming Radiology Results From [facility] - 12/19/2019 2:33 PM EDT Patient Name: GONZALO DELUCA ---Special Procedures--- Exam Date/Time 12/19/2019 14:31:06 EDT Exam XA Special Angiography Procedure Ordering Physician ZIYAD MENENDEZ Accession Number [id number] Reason For Exam Mediport placement Report LEFT [...] MALAY Transcribed Date and Time: 12/19/2019 2:32 [facility], [place] XR CHEST PORTABLEon 12-19-19 Patient Name: GONZALO DELUCA ---Diagnostic Radiology--- Exam Date/Time 12/19/2019 14:50:00 EDT Exam CR Chest Portable Ordering Physician MD GLADIS, ROSS Accession Number [id number] CPT4 Codes 14381 () Reason For Exam Med Port placement She is in [facility] room 12. She can go home after Dr. Gladis rocha's the XRay. Please contact him at [phone] when it is available. Thanks Report CLINICAL [...] JEFFREY Transcribed Date and Time: 12/19/2019 3:06 [place], [place] [facility], [facility] Incoming Radiology Results From [facility] - 12/19/2019 3:06 PM EDT Patient Name: GONZALO DELUCA ---Diagnostic Radiology--- Exam Date/Time 12/19/2019 14:50:00 EDT Exam CR Chest Portable Ordering Physician MD GLADIS, ROSS Accession Number [id number] CPT4 Codes 13125 () Reason For Exam Med Port placement She is in ACS room 12. She can go home after Dr. Gladis rocha's the XRay. Please contact him at [phone] when it is available. Thanks Report CLINICAL [...] JEFFREY Transcribed Date and Time: 12/19/2019 3:06 [place] Basic Metabolic Panel w/ Ref familia to MGon 11-24-2019 Anion gap [Moles/Vol] 4 mmol/L [place] Calcium [Mass/Vol] 8.3 mg/dL Low 8.4 - 10. 4 mg/dL [place] Chloride [Moles/Vol] 102 mmol/L 98 - 10 7 mmol/L [place] CO2 [Moles/Vol] 27 mmol/L 22 - 30 mmol/L [place] Creatinine [Mass/Vol] 0.52 mg/dL 0.52 - 1.25 mg/dL [place] EGFR IF NonAfrican [place] >90.0 >60 mL/min [place] Comment on above: KDIGO guidelines pro [...] MDRD (S/P/Bld) [Vol rate/Area] mL/min/{1.73_m2} >60 mL/min [place] Glucose [Mass/Vol] 84 mg/dL 70 - 100 mg/dL [place] Interpretation and review of laboratory results Abnormal [place] Potassium [Moles/Vol] 3.8 mmol/L 3.5 - 5.1 mmol/L [place] Sodium [Moles/Vol] 133 mmol/L Low 135 - 145 mmol/L [place] Urea nitrogen [Mass/Vol] 8 mg/dL 7 - 20 mg/d L [place] Test Performed by [facility] [employer] [facility], [address], [place], [place] [address] [place] CBC Auto Differentialon 09-0 -2020 Absolute Baso # 0.0 10*3/uL 0 - 0.2 10*3/uL [place] Absolute Neut # 5.9 10*3/uL 1.8 - 7 10*3/uL [place] Basophils/100 WBC (Bld) 0.5 % 0 - 2 % [place] Eosinophils (Bld) [#/Vol] 0.2 10*3/uL 0 - 0.5 10*3/uL [place] Eosinophils/100 WBC (Bld) 2.6 % 1 - 6 % [place] Erythrocyte distribution width (RBC) [Ratio] 13.8 % 11.5 - 14.5 % [place] Granulocytes/100 WBC (Bld) 78.0 % 40 - 80 % [place] Hematocrit (Bld) [Volume fraction] 31.1 % Low 35 - 47 % [place] Hemoglobin (Bld) [Mass/Vol] 10.0 g/dL Low 11.7 - 16 g/dL [place] Interpretation and review of laboratory results Abnormal [place] Lymphocytes (Bld) [#/Vol] 0.9 10*3/uL Low 1 - 4.3 10*3/uL [place] Lymphocytes/100 WBC (Bld) 12.2 % Low 20 - 40 % [place] MCH (RBC) [Entitic mass] 30.5 pg 26 - 34 pg [place] MCHC (RBC) [Mass/Vol] 32.3 % 32 - 36 % [place] MCV (RBC) [Entitic vol] 94.5 fL 79 - 98 fL [place] Monocytes (Bld) [#/Vol] 0.5 10*3/uL 0 - 0.8 10*3/uL [place] Monocytes/100 WBC (Bld) 6.7 % 2 - 10 % [place] Platelet mean volume (Bld) [Entitic vol] 6.7 fL Low 7.4 - 10.4 fL [place] Platelets (Bld) [#/Vol] 378 10*3/uL 140 - 440 10*3/uL [place] RBC (Bld) [#/Vol] 3.29 10*6/uL Low 3.8 - 5.2 10*6/uL [place] WBC (Bld) [#/Vol] 7.6 10*3/uL 3.6 - 10.7 10*3/uL [place] Test Performed by [facility] [employer] [facility], [address], [place], [place] [address] [place] VL DUP CAROTID BILATERALon 0 11-24-2019 Real, [facility] Incoming Cardiology Results From Jessika/Anny - 11/24/2019 9:57 AM EDT [facility] ----- Carotid Duplex Report Ordering Physician: Aparna Walter Network Operations Technician: Alexa De León Interpreting Physician: Austyn Dee MD ----- Location: [facility] ----- Indications: Right arm weakness. ----- [...] supine position. Images were obtained using a weartolook E9 vascular ultrasound machine. ----- Findings Carotid/vertebral [...] signed by Austyn Dee MD 11/24/2019 09:57 [facility] [place], [facility] ----- Carotid Duplex Report Ordering Physician: Aparna Walter Network Operations Technician: Alexa De León Interpreting Physician: Austyn Dee MD ----- Location: [facility] ----- Indications: Right arm weakness. ----- Conclusions [...] supine position. Images were obtained using a weartolook E9 vascular ultrasound machine. ----- Findings Carotid/vertebral [...] signed by Austyn Dee MD 11/24/2019 09:57 [facility] Basic Metabolic Panel w/ Ref familia to MGon 11-23-2019 Anion gap [Moles/Vol] 3 mmol/L [facility] Calcium [Mass/Vol] 8.6 mg/dL 8.4 - 10. 4 mg/dL [facility], [place] Chloride [Moles/Vol] 101 mmol/L 98 - 10 7 mmol/L [facility] CO2 [Moles/Vol] 31 mmol/L High 22 - 30 mmol/L [place] Creatinine [Mass/Vol] 0.55 mg/dL 0.52 - 1.25 mg/dL [place] EGFR IF NonAfrican [place] >90.0 >60 mL/min [place] Comment on above: KDIGO guidelines pro [...] MDRD (S/P/Bld) [Vol rate/Area] mL/min/{1.73_m2} >60 mL/min [place] Glucose [Mass/Vol] 87 mg/dL 70 - 100 mg/dL [place] Interpretation and review of laboratory results Abnormal [place] Potassium [Moles/Vol] 4.0 mmol/L 3.5 - 5.1 mmol/L [place] Sodium [Moles/Vol] 136 mmol/L 135 - 145 mmol/L [place] Urea nitrogen [Mass/Vol] 12 mg/dL 7 - 20 mg/d L [place] Test [facility] by [facility], [address], [place], [place] [address] [place] CBC Auto Differentialon 09-0 Absolute Baso # 0.0 10*3/uL 0 - 0.2 10*3/uL [place] Absolute Neut # 5.3 10*3/uL 1.8 - 7 10*3/uL [place] Basophils/100 WBC (Bld) 0.6 % 0 - 2 % [place] Eosinophils (Bld) [#/Vol] 0.3 10*3/uL 0 - 0.5 10*3/uL [place] Eosinophils/100 WBC (Bld) 3.6 % 1 - 6 % [place] Erythrocyte distribution width (RBC) [Ratio] 13.7 % 11.5 - 14.5 % [place] Granulocytes/100 WBC (Bld) 73.0 % 40 - 80 % [place] Hematocrit (Bld) [Volume fraction] 30.5 % Low 35 - 47 % [place] Hemoglobin (Bld) [Mass/Vol] 9.9 g/dL Low 11.7 - 16 g/dL [place] Interpretation and review of laboratory results Abnormal [place] Lymphocytes (Bld) [#/Vol] 1.1 10*3/uL 1 - 4.3 10*3/uL [place] Lymphocytes/100 WBC (Bld) 14.8 % Low 20 - 40 % [place] MCH (RBC) [Entitic mass] 30.5 pg 26 - 34 pg [place] MCHC (RBC) [Mass/Vol] 32.3 % 32 - 36 % [place] MCV (RBC) [Entitic vol] 94.3 fL 79 - 98 fL [place] Monocytes (Bld) [#/Vol] 0.6 10*3/uL 0 - 0.8 10*3/uL [place] Monocytes/100 WBC (Bld) 8.0 % 2 - 10 % [place] Platelet mean volume (Bld) [Entitic vol] 6.6 fL Low 7.4 - 10.4 fL [place] Platelets (Bld) [#/Vol] 366 10*3/uL 140 - 440 10*3/uL [place] RBC (Bld) [#/Vol] 3.24 10*6/uL Low 3.8 - 5.2 10*6/uL [facility] [place], [place] WBC (Bld) [#/Vol] 7.3 10*3/uL 3.6 - 10.7 10*3/uL [facility] Test Performed by [facility], [address], [place], [place] [address] [facility], [place] ECHO Complete 2D W Doppler W Coloron 11-23-2019 TRANSTHORACIC ECHOCARDIOGRAM PATIENT: Gonzalo Deluca STUDY DATE: 11/23/2019 : 1955 AGE: 64 HT/WT: 165.1 cm (65 70.8 kg in) (155.7 lb) GENDER: F BP: 124 / 79 LOCATION: [email or web address] PATIENT Inpatient [facility] STATUS: *ORDERING PHYSICIAN: * Lauren Serna *RN: * Alea Gomez *READING PHYSICIAN: Haritha MgSMASH FIXER: * Jany Vital MD RDCS, AE ----- [...] Srini Vital MD 11/23/2019 11:59 Prior Signatures: [facility], [facility] Incoming Cardiology Results From [facility]/Anny - 11/23/2019 11:59 AM EDT TRANSTHORACIC ECHOCARDIOGRAM PATIENT: Gonzalo Deluca STUDY DATE: 11/23/2019 : 1955 AGE: 64 HT/WT: 165.1 cm (65 70.8 kg in) (155.7 lb) GENDER: F BP: 124 / 79 LOCATION: [facility] PATIENT Inpatient [facility] STATUS: *ORDERING PHYSICIAN: * Lauren Serna *RN: * Alea Gomez *READING PHYSICIAN: * Srini *SMASH FIXER: * Jany Vtial MD RDCS, AE ----- INDICATIONS: Right hand [...] Srini Vital MD 11/23/2019 11:59 Prior Signatures: [place] CBCon 11-22-2019 Erythrocyte distribution width (RBC) [Ratio] 13.8 % 11.5 - 14.5 % [place] Hematocrit (Bld) [Volume fraction] 29.9 % Low 35 - 47 % [place] Hemoglobin (Bld) [Mass/Vol] 9.6 g/dL Low 11.7 - 16 g/dL [place] Interpretation and review of laboratory results Abnormal [place] MCH (RBC) [Entitic mass] 30.3 pg 26 - 34 pg [place] MCHC (RBC) [Mass/Vol] 31.9 % Low 32 - 36 % [place] MCV (RBC) [Entitic vol] 94.9 fL 79 - 98 fL [place] Platelet mean volume (Bld) [Entitic vol] 7.2 fL Low 7.4 - 10.4 fL [place] Platelets (Bld) [#/Vol] 380 10*3/uL 140 - 440 10*3/uL [place] RBC (Bld) [#/Vol] 3.15 10*6/uL Low 3.8 - 5.2 10*6/uL [place] WBC (Bld) [#/Vol] 8.9 10*3/uL 3.6 - 10.7 10*3/uL [place] Test Performed by [facility], [address] [place], [place] [address] [place] Comprehensive Metabolic Pane l w/ Reflex to MGon 11-22-2019 Albumin [Mass/Vol] 2.8 g/dL Low 3.5 - 5 g/dL [place] ALP [Catalytic activity/Vol] 77 U/L 38 - 126 U/L [place] ALT [Catalytic activity/Vol] 20 U/L 0 - 34 U/L [place] Comment on above: The ALT test is perf ormed by an updated assay method. Please note that the reference intervals have been changed and are now sex specific. Anion gap [Moles/Vol] 4 mmol/L [place], [place] AST [Catalytic activity/Vol] 52 U/L High 15 - 46 U/L [place] Bilirubin Ql (U) 0.2 mg/dL 0.2 - 1.3 mg/dL [place] Calcium [Mass/Vol] 8.3 mg/dL Low 8.4 - 10. 4 mg/dL [place] Chloride [Moles/Vol] 103 mmol/L 98 - 10 7 mmol/L [place] CO2 [Moles/Vol] 33 mmol/L High 22 - 30 mmol/L [place] Creatinine [Mass/Vol] 0.54 mg/dL 0.52 - 1.25 mg/dL [place] EGFR IF NonAfrican [place] >90.0 >60 mL/min [place] Comment on above: KDIGO guidelines pro [...] MDRD (S/P/Bld) [Vol rate/Area] mL/min/{1.73_m2} >60 mL/min [place] Glucose [Mass/Vol] 99 mg/dL 70 - 100 mg/dL [place] Interpretation and review of laboratory results Abnormal [place] Potassium [Moles/Vol] 3.1 mmol/L Low 3.5 - 5.1 mmol/L [place] Protein [Mass/Vol] 5.4 g/dL Low 6.3 - 8.2 g/dL [place] Sodium [Moles/Vol] 140 mmol/L 135 - 145 mmol/L [place] Urea nitrogen [Mass/Vol] 11 mg/dL 7 - 20 mg/d L [place] EKG 12 Lead if not already d one by divya 11-22-2019 Real, [facility] Incoming Cardiology Results From [facility] - 11/22/2019 12:02 PM EDT [facility] Test Date: 2019-11-21 Pat Name: Gonzalo Deluca Department: 01 Room: 454 Gender: F 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1955 Requested By: RAY BARROSO Order Number: [id number] Reading MD: Vicente Brown Measurements Intervals [place] Rate: 89 P: 42 TN: 152 QRS: -20 QRSD: 100 T: 18 QT: 376 QTc: 458 Interpretive Statements SINUS RHYTHM Compared to ECG 08/02/2019 18:19:40 Ventricular premature complex(es) no longer present Electronically Signed On 11-22-2019 12:01:36 EDT by [employer] [place] Hemoglobin A1con 11-22-2019 eAG 100 mg/dL [place] HbA1c (Bld) [Mass fraction] 5.1 % 4 - 6 % [place] Comment on above: --HgbA1C levels may not be accurate in patients who have renal disease, received recent blood transfusions, are anemic, or who have dyshemoglobinemia. Test Performed by [facility], [address] [place], [place] [address] [place] [address] Lipid panel - fastingon Cholesterol [Mass/Vol] 132 mg/dL <200 [place], [place] Cholesterol in HDL [Mass/Vol] 41 mg/dL 40 - 60 mg/dL [place] Cholesterol in LDL [Mass/Vol] 68 mg/dL <100 [place] Cholesterol.total/Choles terol in HDL [Mass ratio] 3 {ratio} [place] Comment on above: Ref Range: < 3 Low Risk for CHD 3-6 Mod Risk for CHD > 6 High Risk for CHD Triglyceride [Mass/Vol] 116 mg/dL <150 [place], [place] Magnesiumon 11-22-2019 Magnesium [Mass/Vol] 1.9 mg/dL 1.6 - 2 .3 mg/dL [place] Test Performed by [facility] [employer] [facility], [address] [place], [place], [place] [id number] [place] [address] Otheron 11-22-2019 Test Performed by [facility], [address] [place], [place] [address] [place] [address] VL LOWER EXTREMITY VENOUS RI GHT [id number] 11-22-2019 [facility] ----- Right Lower Extremity Venous Duplex Report Ordering Physician: Lauren Serna Network Operations Technician: Eh Rojas Interpreting Physician: Josef Cochran ----- Location: [facility] ----- Indications: Right sided swelling. ----- Conclusions [...] supine position. Images were obtained using a weartolook E9 vascular ultrasound machine. ----- Venous flow [...] electronically signed by Josef Cochran 11/22/2019 14:37 [facility] [place] [place] Real [facility] Incoming Cardiology Results From Jessika/Anny - 11/22/2019 2:37 PM EDT [facility] ----- Right Lower Extremity Venous Duplex Report Ordering Physician: Lauren Serna Network Operations Technician: Eh Rojas Interpreting Physician: Josef Cochran ----- Location: [facility] ----- Indications: Right sided swelling. ----- Conclusions [...] supine position. Images were obtained using a weartolook E9 vascular ultrasound machine. ----- Venous flow [...] electronically signed by Josef Cochran 11/22/2019 14:37 [place] APTTon 11-21-2019 aPTT Coag (Bld) [Time] 23.6 s 20 - 30.5 s [place] Comment on above: NOTE: The therapeuti c time for Heparin anticoagulation, based on Xa activity inhibition, is an APTT of 46-80 seconds. CBC Auto Differentialon Absolute Baso # 0.1 10*3/uL 0 - 0.2 10*3/uL [place] Absolute Neut # 4.8 10*3/uL 1.8 - 7 10*3/uL [place] Basophils/100 WBC (Bld) 0.7 % 0 - 2 % [place] Eosinophils (Bld) [#/Vol] 0.3 10*3/uL 0 - 0.5 10*3/uL [place] Eosinophils/100 WBC (Bld) 3.7 % 1 - 6 % [place] Erythrocyte distribution width (RBC) [Ratio] 14.0 % 11.5 - 14.5 % [place] Granulocytes/100 WBC (Bld) 71.5 % 40 - 80 % [place] Hematocrit (Bld) [Volume fraction] 34.5 % Low 35 - 47 % [place] Hemoglobin (Bld) [Mass/Vol] 11.0 g/dL Low 11.7 - 16 g/dL [place] Interpretation and review of laboratory results Abnormal [place] Lymphocytes (Bld) [#/Vol] 1.1 10*3/uL 1 - 4.3 10*3/uL [place] Lymphocytes/100 WBC (Bld) 16.9 % Low 20 - 40 % [place] MCH (RBC) [Entitic mass] 30.4 pg 26 - 34 pg [place] MCHC (RBC) [Mass/Vol] 32.0 % 32 - 36 % [place] MCV (RBC) [Entitic vol] 95.1 fL 79 - 98 fL [place], [place] Monocytes (Bld) [#/Vol] 0.5 10*3/uL 0 - 0.8 10*3/uL [place] Monocytes/100 WBC (Bld) 7.2 % 2 - 10 % [place] Platelet mean volume (Bld) [Entitic vol] 6.7 fL Low 7.4 - 10.4 fL [place] Platelets (Bld) [#/Vol] 438 10*3/uL 140 - 440 10*3/uL [place] RBC (Bld) [#/Vol] 3.63 10*6/uL Low 3.8 - 5.2 10*6/uL [place] WBC (Bld) [#/Vol] 6.8 10*3/uL 3.6 - 10.7 10*3/uL [place] Test Performed by [email or web address], [address] [place], [place], [place] [address] [place] [address] CT HEAD WO CONTRASTon 2019 Patient Name: GONZALO DELUCA ---CT--- Exam Date/Time 11/21/2019 16:56:[address] Head or Brain w/o Contrast Ordering Physician RAY ALLEN Accession Number [id number] CPT4 Codes 90564 () Reason For Exam right arm weakness [...] WENDELL Transcribed Date and Time: 11/21/2019 5:09 [place] Real, [facility] Incoming Radiology Results From [facility] - 11/21/2019 5:09 PM EDT Patient Name: GONZALO DELUCA ---CT--- Exam Date/Time 11/21/2019 16:56:[address] Head or Brain w/o Contrast Ordering Physician RAY ALLEN Accession Number [id number] CPT4 Codes 99509 () Reason For Exam right arm weakness [...] WENDELL Transcribed Date and Time: 11/21/2019 5:09 [place] Comprehensive Metabolic Pane l w/ Reflex to MGon 11-21-2019 Albumin [Mass/Vol] 3.3 g/dL Low 3.5 - 5 g/dL [place] ALP [Catalytic activity/Vol] 96 U/L 38 - 126 U/L [place] ALT [Catalytic activity/Vol] 23 U/L 0 - 34 U/L [place] Comment on above: The ALT test is perf ormed by an updated assay method. Please note that the reference intervals have been changed and are now sex specific. Anion gap [Moles/Vol] 4 mmol/L [place] AST [Catalytic activity/Vol] 37 U/L 15 - 46 U/L [place] Bilirubin Ql (U) 0.1 mg/dL Low 0.2 - 1.3 mg/dL [place] Calcium [Mass/Vol] 9.1 mg/dL 8.4 - 10. 4 mg/dL [place] Chloride [Moles/Vol] 100 mmol/L 98 - 10 7 mmol/L [place] CO2 [Moles/Vol] 37 mmol/L High 22 - 30 mmol/L [place] Creatinine [Mass/Vol] 0.66 mg/dL 0.52 - 1.25 mg/dL [place] EGFR IF NonAfrican [place] >90.0 >60 mL/min [place] Comment on above: KDIGO guidelines pro [...] MDRD (S/P/Bld) [Vol rate/Area] mL/min/{1.73_m2} >60 mL/min [place] Glucose [Mass/Vol] 93 mg/dL 70 - 100 mg/dL [place] Interpretation and review of laboratory results Abnormal [place] Potassium [Moles/Vol] 3.4 mmol/L Low 3.5 - 5.1 mmol/L [place] Protein [Mass/Vol] 6.3 g/dL 6.3 - 8.2 g/dL [place] Sodium [Moles/Vol] 141 mmol/L 135 - 145 mmol/L [place] Urea nitrogen [Mass/Vol] 12 mg/dL 7 - 20 mg/d L [place] Test Performed by [facility], [address] Magnesiumon 11-21-2019 Magnesium [Mass/Vol] 2.0 mg/dL 1.6 - 2 .3 mg/dL [place] Test Performed by [facility], [address] [place], [place] [address] [place] [address] Otheron 11-21-2019 Test Performed by [facility], [address] POCT Glucoseon 11-21-2019 Glucose [Mass/Vol] 94 mg/dL 70 - 100 mg/dL [place] Comment on above: Test performed by ucose meter. Results may be 10%-15% lower than serum/plasma values. (CLIA ID [id number]) Test Performed by [facility], [address], [place], [place] [address] [place] [address] Protime-INRon 11-21-2019 INR Coag (PPP) [Relative time] 1.0 {INR} [place] Comment on above: Recommended Anticoag ulant [...] [Time] 10.1 s 9 - 12 s [place], [place] Comment on above: . Troponinon 11-21-2019 Troponin I.cardiac [Mass/Vol] ng/mL 0 - 0.034 ng/mL [place] Comment on above: . Test Performed by [facility], [address], [address] [id number] 11-13-2019 SARS-CoV-2 SARS-CoV-2 --> Statu s: F Not Detected Expected Result: Not Detected _ Real-time, RT-PCR performed on the Exper[employer]ity System by the [facility]. Negative results do not preclude SARS-CoV-2 infection and should not be used as the sole basis for treatment or other patient management decisions. This assay was developed by [employer] and distributed under an Emergency Use Authorization (EUA) granted by the FDA for the qualitative detection of SARS-CoV-2 nucleic acid. Results were determined from a pool consisting of specimens from additional patients. This test was modified, and its performance characteristics, showing minimal loss of sensitivity, have been validated by the [facility]. Approval is pending review by the U. S. Food and Drug Administration. If symptoms are severe and persist, testing a new specimen may be warranted. Additionally, IgG testing may be considered for patients more than 7-10 days post onset of symptoms. Expected Result: Not Detected _ Real-time, RT-PCR performed on the Exper[employer] System by the [facility]. Negative results do not preclude SARS-CoV-2 infection and should not be used as the sole basis for treatment or other patient management decisions. This assay was developed by [employer] and distributed under an Emergency Use Authorization (EUA) granted by the FDA for the qualitative detection of SARS-CoV-2 nucleic acid. Results were determined from a pool consisting of specimens from additional patients. This test was modified, and its performance characteristics, showing minimal loss of sensitivity, have been validated by the [facility]. Approval is pending review by the U. S. Food and Drug Administration. If symptoms are severe and persist, testing a new specimen may be warranted. Additionally, IgG testing may be considered for patients more than 7-10 days post onset of symptoms. Normal [facility] Comment on above: Order Comment: Speci men Source Comment:Nasopharyngeal Swab Performed By: #### C OVID ####[facility], [place] Basic Metabolic Panelon 08-04 24-2019 Calcium [Mass/Vol] 9.2 mg/dL Normal 8.4-10.4 [facility] Comment on above: Performed By: #### B MP3, HEMDF #### [facility] [address], [place] Glucose [Mass/Vol] 120 mg/dL High 70-100 [facility] Comment on above: Performed By: #### B MP3, HEMDF #### [facility] [address], [place] Urea nitrogen [Mass/Vol] 9 mg/dL Normal 7-20 [facility] Comment on above: Performed By: #### B MP3, HEMDF #### [facility] [address] [place] [address] Anion gap [Moles/Vol] 7 Normal [facility] Comment on above: Performed By: #### B MP3, HEMDF #### [facility] [address], [place] CO2 [Moles/Vol] 31 mmol/L High 22-30 [facility] Comment on above: Performed By: #### B MP3, HEMDF #### [facility] [employer] [facility] [address], [place] Creatinine [Mass/Vol] 0.49 mg/dL Low 0.52-1.25 [facility] Comment on above: Performed By: #### B MP3, HEMDF #### [facility] [address], [place] GFR/1.73 sq M predicted among blacks MDRD (S/P/Bld) [Vol rate/Area] mL/min/{1.73_m2} Normal >60 [facility] Comment on above: Performed By: #### B MP3, HEMDF #### [facility] [address], [place] GFR/1.73 sq M predicted among non-blacks MDRD (S/P/Bld) [Vol rate/Area] mL/min/{1.73_m2} Normal >60 [facility] Comment on above: Result Comment: KDIG [...] Performed By: #### B MP3, HEMDF #### [facility] [employer] [facility] [address], [place] Potassium [Moles/Vol] 2.9 mmol/L Low 3.5-5.1 [facility] Comment on above: Performed By: #### B MP3, HEMDF #### [facility] [address] [place] [address] Chloride [Moles/Vol] 103 mmol/L Normal 98-107 [facility] Comment on above: Performed By: #### B MP3, HEMDF #### [facility] [address], [place] Sodium [Moles/Vol] 140 mmol/L Normal 135-145 [facility] Comment on above: Performed By: #### B MP3, HEMDF #### [facility] [address], [place] CR Chest Portableon 11-12-19 20 CR Chest Portable Patient Name: GONZALO DELUCA Diagnostic Radiology Exam Date/Time 11/12/2019 20:13:01 EDT Exam CR Chest Portable Ordering Physician NADEEM CASEY JENNIFER L. Accession Number [id number] CPT4 Codes 78719 () Reason For Exam cough and fever [...] Transcribed Date and Time: 11/12/2019 8:15 Normal [facility] Hemogram w/ Autodiffon 11-11 Abs Baso Cnt 0.1 10*3/uL Normal 0.0-0.2 [facility] Comment on above: Performed By: #### B MP3, HEMDF #### [facility] [address], [place] Abs Neutrophile Cnt 12.0 10*3/uL High 1.8-7.0 [facility] Comment on above: Performed By: #### B MP3, HEMDF #### [facility] [address] [place] [address] Basophils/100 WBC (Bld) 0.4 % Normal 0.0-2.0 [facility] Comment on above: Performed By: #### B MP3, HEMDF #### [facility] [address] [place] [address] Eosinophils (Bld) [#/Vol] 0.2 10*3/uL Normal 0.0-0.5 [facility] Comment on above: Performed By: #### B MP3, HEMDF #### [facility] [address] [place] [address] Eosinophils/100 WBC (Bld) 1.6 % Normal 1.0-6.0 [facility] Comment on above: Performed By: #### B MP3, HEMDF #### [facility] [address] [place] [address] Erythrocyte distribution width (RBC) [Ratio] 14.2 % Normal 11.5-14.5 [facility] Comment on above: Performed By: #### B MP3, HEMDF #### [facility] [address] [place] [address] Granulocytes/100 WBC (Bld) 81.3 % High 40.0-80.0 [facility] Comment on above: Performed By: #### B MP3, HEMDF #### [facility] [address] [place] [address] Hematocrit (Bld) [Volume fraction] 38.0 % Normal 35.0-47.0 [facility] Comment on above: Performed By: #### B MP3, HEMDF #### [facility] [address] [place] [address] Hemoglobin (Bld) [Mass/Vol] 12.9 g/dL Normal 11.7-16.0 [facility] Comment on above: Performed By: #### B MP3, HEMDF #### [facility] [address] [place] [address] Lymphocytes (Bld) [#/Vol] 1.4 10*3/uL Normal 1.0-4.3 [facility] Comment on above: Performed By: #### B MP3, HEMDF #### [facility] [address] [place], [place] Lymphocytes/100 WBC (Bld) 9.3 % Low 20.0-40.0 [facility] Comment on above: Performed By: #### B MP3, HEMDF #### [facility] [address] [place], [place] MCH (RBC) [Entitic mass] 32.0 pg Normal 26.0-34.0 [facility] Comment on above: Performed By: #### B MP3, HEMDF #### [place] [address], [place] MCHC (RBC) [Mass/Vol] 34.0 % Normal 32.0-36.0 [facility] Comment on above: Performed By: #### B MP3, HEMDF #### [place] [address] [place], [place] MCV (RBC) [Entitic vol] 94.1 fL Normal 79.0-98.0 [facility] Comment on above: Performed By: #### B MP3, HEMDF #### [place] [address], [place] Monocytes (Bld) [#/Vol] 1.1 10*3/uL High 0.0-0.8 [facility] Comment on above: Performed By: #### B MP3, HEMDF #### [place] [address] [place], [place] Monocytes/100 WBC (Bld) 7.4 % Normal 2.0-10.0 [facility] Comment on above: Performed By: #### B MP3, HEMDF #### [place] [address] [place], [place] Platelet mean volume (Bld) [Entitic vol] 6.8 fL Low 7.4-10.4 [facility] Comment on above: Performed By: #### B MP3, HEMDF #### [place] [address] [place], [place] Platelets (Bld) [#/Vol] 526 10*3/uL High 140-440 [facility] Comment on above: Performed By: #### B MP3, HEMDF #### [facility] [address] [place], [place] RBC (Bld) [#/Vol] 4.03 10*6/uL Normal 3.80-5.20 [facility] Comment on above: Performed By: #### B MP3, HEMDF #### [facility] [employer] [facility] [address] [place], [place] WBC (Bld) [#/Vol] 14.8 10*3/uL High 3.6-10.7 [facility] Comment on above: Performed By: #### B MP3, HEMDF #### [facility] [address] [place], [place] VL Venous Duplex US Lower Ex t Righton 11-10-2019 VL Venous Duplex US Lower Ext Right Patient Name: GONZALO DELUCA Ultrasound Exam Date/Time 11/10/2019 18:25:00 EDT Exam VL Venous Duplex US Lower Ext Right Ordering Physician [id number] -TANI JOSEPH Accession Number [id number] CPT4 Codes 83247 () Reason For Exam Other specified soft tissue disorders Report [facility] ----- Right Lower Extremity Venous Duplex Report Ordering Physician: Tani Joseph Network Operations Technician: Luda Alonso Interpreting Physician: Ramses Mcgrath MD ----- Location: [facility] [place] ----- Indications: Leg swelling. Pt s/p hysterectomy [...] supine position. Images were obtained using a TabbedOut i700 [employer] vascular ultrasound machine. ----- Venous flow and [...] and Time: 11/12/2019 8:11 am Signed by: MOAWAD, [facility] Op Noteon 11-06-2019 Op Note PATIENT: MAHAMED DELUCA ADMISSION DATE: 11/06/2019 SURGERY DATE: 11/06/2019 DATE OF : 1955 AGE: 63 ADMITTING PHYSICIAN: Ziyad Menendez MD ATTENDING PHYSICIAN: Ziyad Menendez MD DICTATING PHYSICIAN: Ziyad Menendez MD OPERATIVE RECORD Procedure: ABDOMINAL RADICAL HYSTERECTOMY WITH BSO AND PELVIC LYMPH NODE DISSECTION. Preoperative Diagnosis: Cervical cancer stage IB2. Postoperative Diagnosis: Cervical cancer stage IB2. Anesthesia: General. Drag Out Worker : Dr. Beth. Description of Findings: No [...] cuff was closed using interrupted 0 Vicryl [id number]. The abdomen and pelvis was then copiously [...] EBL about 250 cc. Diskriter Job ID: [id number] Ziyad Menendez MD DOD:11/06/2019 10:13 A /geraldine DOT:11/06/2019 10:45 A Job Number: [id number] Document Number: [id number] cc: Ziyad Menendez MD [facility] [address] [facility] [address] Angle Case MD [address] [address] Normal [facility] Surgical Pathologyon 020 Surgical Pathology [id number] [facility] DEPARTMENT OF [facility] PATHOLOGY AND LABORATORY MEDICINE [address] [place] [address] FINAL SURGICAL PATHOLOGY REPORT NAME: GONZALO DELUCA : 1955 63 Y F BILLING NO.: [id number] LOCATION: [facility] PROCEDURE 11/06/2019 DATE: SURGEON: ZIYAD MENENDEZ MD [...] (pN): pN1 FIGO STAGE FIGO Stage: IIIC1 INSTRUMENTATION AND CONTROLS DESIGNER TUMOR BLOCK(S): A2, A3 HCK/HCK Signature> ANSLEY [...] No papillations or excrescences are identified. Multiple risk control representative sections are submitted. The left fallopian [...] masses or lesions are grossly identified. Multiple risk control representative sections are submitted. Cassette Summary: 1 - 4 is ectocervix with vaginal cuff margin from 6 o'clock to 9 o'clock, entirely submitted; 5 is risk control representative 9 o'clock to 12 o'clock; 6 - 8 is 3 o'clock to 6 o'clock, entirely submitted; 9 is risk control representative 12 o'clock to 3 o'clock; 10 [...] lower uterine segment; 20 and 21 is risk control representative right parametrium; 22 is risk control representative left parametrium; 23 is left ovary; [...] from the specimen is submitted into 13. S/[facility] Disclaimer: The following statement applies to all immunohistochemistry, in situ hybridization, molecular studies, and immunofluorescence testing. The use of one or more reagents in the above tests is regulated as an analyte specific reagent (ASR). These tests were developed and their performance characteristics determined by the clinical laboratories of [facility]. They have not been cleared by [...] negativity on decalcified specimens. Professional Performing Location: [address] [address]. DEPARTMENT OF PATHOLOGY AND LABORATORY MEDICINE [place], [place] [address] Normal [facility] TS GELon 11-05-2019 TS GEL ABO Group: A Rh, Gel: POS Antibody Screen Gel: NEG Normal [facility] Comment on above: Performed By: #### T SGL ####[address] TYPE AND SCREENon 11-05-2019 Sodium [Moles/Vol] A [facility] [place], [place] Sodium [Moles/Vol] Positive [facility] [place], [employer] Sodium [Moles/Vol] Negative [facility], [employer] Test Performed by [facility], [address] [place] [address], [place] CNPLupe 10-31-2019 CNPN Telephone (MOLEFV) GONZALO DELUCA ([id number]) 1955 F Date Time Provider Department 10/31/19 AMELIE SOUSA (TECH) AYE During your visit today, we recorded [...] Encounter Status:Closed by AMELIE ZAYAS on 10/31/19 [facility] PROGRESSon 10-31-2019 PROGRESS HNO ID: [id number] Author: Ankit Cook Service: ? Author Type: [...] performed and evaluated at the [facility] using block B1. 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 ?P53 shows wild type expression. ?ER shows moderate expression in 30% of tumor cells. ?TN is negative. ?An RNA in situ hybridization [...] days 11/06/19 radical ARIANA-BSO-LND (Dr Ziyad Menendez, [facility]) 11/09/19 ED Visit (OSH) MRI [...] yo T1b1 N1a SCC cervix Staged at [facility] 11/06/2019 Hx COPD, 3L suppl O2 at home Possible TIA 07/2019 CAD abd stress 2017; possible NSTEMI 2017 (per pt) Mother berast CA Sister breast CA [facility] ER eval 10/21/[address] notable for old T5 compressions fx PLAN: MRI and PET CT completed at [facility] S/p staging surgery w Dr. Menendez 11/06/201904/01 Pelvic nodes positive, Ao nodes not sampled 10mm stromal invasion Planned for adjuvant chemoRT at [facility] Ankit Cook MD 5min spent counseling the pateint by telephone Normal [facility] [place] Basic Metabolic Panelon 08-0 Anion gap [Moles/Vol] 6 mmol/L [place] Calcium [Mass/Vol] 9.7 mg/dL 8.4 - 10. 4 mg/dL [place] Chloride [Moles/Vol] 102 mmol/L 98 - 10 7 mmol/L [place] CO2 [Moles/Vol] 32 mmol/L High 22 - 30 mmol/L [place] Creatinine [Mass/Vol] 0.57 mg/dL 0.52 - 1.25 mg/dL [place] EGFR IF NonAfrican [place]olan >90.0 >60 mL/min [place] Comment on above: KDIGO guidelines pro [...] MDRD (S/P/Bld) [Vol rate/Area] mL/min/{1.73_m2} >60 mL/min [place] Glucose [Mass/Vol] 111 mg/dL High 70 - 100 mg/dL [place] Potassium [Moles/Vol] 4.1 mmol/L 3.5 - 5.1 mmol/L [place] Sodium [Moles/Vol] 140 mmol/L 135 - 145 mmol/L [place] Urea nitrogen [Mass/Vol] 20 mg/dL 7 - 20 mg/d L [place] ABDOMEN PELVIS W CONTRAST on 10-27-2019 [facility] Incoming Radiology Results From [facility] - 10/27/2019 5:10 PM EDT Patient Name: GONZALO DELUCA ---CT--- Exam Date/Time 10/27/2019 16:53:[address] Abdomen/Pelvis w/ IV Contrast (IV Onl Ordering Physician MD JAMIE, ANKIT French Accession Number [id number] CPT4 Codes 43605 (CT Abdomen/Pelvis w/ IV Contrast (IV Onl), Q9967 (CT ISOVUE 370MG/ML&[id number]&M L&1) Reason For Exam RUQ/RIGHT flank pain, [...] R Transcribed Date and Time: 10/27/2019 5:09 [place] Patient Name: GONZALO DELUCA ---CT--- Exam Date/Time 10/27/2019 16:53:[address] Abdomen/Pelvis w/ IV Contrast (IV Onl Ordering Physician MD JAMIE, ANKIT French Accession Number [id number] CPT4 Codes 84488 (CT Abdomen/Pelvis w/ IV Contrast (IV Onl), Q9967 (CT ISOVUE 370MG/ML&[id number]&M L&1) Reason For Exam RUQ/RIGHT flank pain, [...] R Transcribed Date and Time: 10/27/2019 5:09 [place] Hemogram (CBC) w/Auto Diffon 10-27-2019 Absolute Baso # 0.1 10*3/uL 0 - 0.2 10*3/uL [place] Absolute Neut # 9.8 10*3/uL High 1.8 - 7 10*3/uL [place] Basophils/100 WBC (Bld) 0.4 % 0 - 2 % [place] Eosinophils (Bld) [#/Vol] 0.5 10*3/uL 0 - 0.5 10*3/uL [place] Eosinophils/100 WBC (Bld) 4.0 % 1 - 6 % [place] Erythrocyte distribution width (RBC) [Ratio] 14.4 % 11.5 - 14.5 % [place] Granulocytes/100 WBC (Bld) 76.6 % 40 - 80 % [place] Hematocrit (Bld) [Volume fraction] 41.9 % 35 - 47 % [place] Hemoglobin (Bld) [Mass/Vol] 13.7 g/dL 11.7 - 16 g/dL [place] Lymphocytes (Bld) [#/Vol] 1.5 10*3/uL 1 - 4.3 10*3/uL [place] Lymphocytes/100 WBC (Bld) 12.1 % Low 20 - 40 % [place] MCH (RBC) [Entitic mass] 30.3 pg 26 - 34 pg [place] MCHC (RBC) [Mass/Vol] 32.6 % 32 - 36 % [place] MCV (RBC) [Entitic vol] 93.1 fL 79 - 98 fL [place] Monocytes (Bld) [#/Vol] 0.9 10*3/uL High 0 - 0.8 10*3/uL [place] Monocytes/100 WBC (Bld) 6.9 % 2 - 10 % [place] Platelet mean volume (Bld) [Entitic vol] 7.1 fL Low 7.4 - 10.4 fL [place] Platelets (Bld) [#/Vol] 413 10*3/uL 140 - 440 10*3/uL [place] RBC (Bld) [#/Vol] 4.50 10*6/uL 3.8 - 5.2 10*6/uL [place] WBC (Bld) [#/Vol] 12.8 10*3/uL High 3.6 - 10.7 10*3/uL [place] Hepatic Function Panelon Albumin [Mass/Vol] 4.2 g/dL 3.5 - 5 g/dL [place] ALP [Catalytic activity/Vol] 116 U/L 38 - 126 U/L [place] ALT [Catalytic activity/Vol] 42 U/L High 0 - 34 U/L [place] Comment on above: The ALT test is perf ormed by an updated assay method. Please note that the reference intervals have been changed and are now sex specific. AST [Catalytic activity/Vol] 47 U/L High 15 - 46 U/L [place] Bilirubin Ql (U) 0.4 mg/dL 0.2 - 1.3 mg/dL [place] Bilirubin.direct [Mass/Vol] 0.0 mg/dL 0 - 0.3 mg/dL [place] Protein [Mass/Vol] 7.5 g/dL 6.3 - 8.2 g/dL [place] Lipaseon 10-27-2019 Lipase [Catalytic activity/Vol] 72 U/L 23 - 300 U/L [place] Otheron 10-27-2019 Interpretation and review of laboratory results Abnormal [place] Test Performed by [email or web address] [facility], [address], [place], [place] [address] [place] LUMBAR SPINE WO CONTRASTo n 10-21-2019 Patient Name: GONZALO DELUCA ---CT--- Exam Date/Time 10/21/2019 21:54:[address] Spine Lumbar w/o Contrast Ordering Physician DO OTTO DAVID J Accession Number [id number] CPT4 Codes 82135 () Reason For Exam Acute onset T [...] WENDELL Transcribed Date and Time: 10/21/2019 10:26 [facility], [place] [facility] Incoming Radiology Results From [facility] - 10/21/2019 10:26 PM EDT Patient Name: GONZALO DELUCA ---CT--- Exam Date/Time 10/21/2019 21:54:[address] Spine Lumbar w/o Contrast Ordering Physician DO OTTO DAVID J Accession Number [id number] CPT4 Codes 58559 () Reason For Exam Acute onset T [...] WENDELL Transcribed Date and Time: 10/21/2019 10:26 [place] THORACIC SPINE WO CONTRAS Ton 10-21-2019 Patient Name: GONZALO DELUCA ---CT--- Exam Date/Time 10/21/2019 20:45:[address] Spine Thoracic w/o Contrast Ordering Physician DO OTTO DAVID J Accession Number [id number] CPT4 Codes 48845 () Reason For Exam Acute onset T [...] WENDELL Transcribed Date and Time: 10/21/2019 10:26 [facility], [facility] Incoming Radiology Results From [facility] - 10/21/2019 10:26 PM EDT Patient Name: GONZALO DELUCA ---CT--- Exam Date/Time 10/21/2019 20:45:[address] Spine Thoracic w/o Contrast Ordering Physician DO OTTO DAVID J Accession Number [id number] CPT4 Codes 91680 () Reason For Exam Acute onset T [...] WENDELL Transcribed Date and Time: 10/21/2019 10:26 [facility]- ONEL RONQUILLO PROGRESSon 10-19-2019 PROGRESS HNO ID: [id number] Author: Ankit Cook Service: ? Author Type: [...] performed and evaluated at the [facility] using block B1. 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 ?P53 shows wild type expression. ?ER shows moderate expression in 30% of tumor cells. ?TN is negative. ?An RNA in situ hybridization [...] 9min spent counseling the patient by telephone. [facility] ALLIED HEALTHon 09-27-2019 ALLIED HEALTH HNO ID: [id number] Author: ALIYA Choi (Ct) Service: Radiology Author Type: Clinical Waiter Waitress Type: Allied Health Filed: 09/27/2019 9:15 AM [...] ALIYA Choi September 27, 2019 9:14 AM [facility] FEMALE PELVIS TRANSABD LT Don 09-27-2019 US FEMALE PELVIS TRANSABD LTD * * *Final Report* * * DATE OF EXAM: Sep 27 2019 8:58AM MARCO 1059 - US FEMALE PELVIS TRANSABD LTD / PROCEDURE REASON: N95.9-Jgdb-cvxyjzzqbo bleeding * * * * Physician Interpretation [...] uterine segment. Pelvic MRI may be helpful. [employer]erg[employer] Acquisitions Attorney: PSCB Transcribe Date/Time: Sep 27 2019 5:07P Dictated by : SAAD ESQUIVEL MD This examination was interpreted and the report reviewed and electronically signed by: SAAD ESQUIVEL MD on Sep 27 2019 5:14PM EST [id number] [facility] US FEMALE PELVIS TRANSVAGon 09-27-2019 US FEMALE PELVIS TRANSVAG * * *Final Report* * * DATE OF EXAM: Sep 27 2019 8:58AM MDU 1060 - US FEMALE PELVIS TRANSVAG / PROCEDURE REASON: N95.7-Nzck-gqojcqykap bleeding * * * * Physician Interpretation [...] uterine segment. Pelvic MRI may be helpful. Merg[employer] Acquisitions Attorney: ANGEL Transcribe Date/Time: Sep 27 2019 5:07P Dictated by : SAAD ESQUIVEL MD This examination was interpreted and the report reviewed and electronically signed by: SAAD ESQUIVEL MD on Sep 27 2019 5:14PM EST [id number] Normal [facility] Basic Metabolic Panelon 05- Anion gap [Moles/Vol] 8 mmol/L [place] Calcium [Mass/Vol] 8.7 mg/dL 8.4 - 10. 4 mg/dL [place] Chloride [Moles/Vol] 105 mmol/L 98 - 10 7 mmol/L [place] CO2 [Moles/Vol] 26 mmol/L 22 - 30 mmol/L [place] Creatinine [Mass/Vol] 0.5 mg/dL Low 0.52 - 1.25 mg/dL [place] EGFR IF NonAfrican [place] >90.0 >60 mL/min [place] Comment on above: KDIGO guidelines pro [...] MDRD (S/P/Bld) [Vol rate/Area] mL/min/{1.73_m2} >60 mL/min [place] Glucose [Mass/Vol] 145 mg/dL High 70 - 100 mg/dL [place] Interpretation and review of laboratory results Abnormal [place] Potassium [Moles/Vol] 4.0 mmol/L 3.5 - 5.1 mmol/L [place] Sodium [Moles/Vol] 139 mmol/L 135 - 145 mmol/L [place] Urea nitrogen [Mass/Vol] 17 mg/dL 7 - 20 mg/d L [place] Test Performed by [facility], [address], [place], [place] [address] [place] CBC Auto Differentialon 05- Absolute Baso # 0.0 10*3/uL 0 - 0.2 10*3/uL [place] Absolute Neut # 13.6 10*3/uL High 1.8 - 7 10*3/uL [place] Basophils/100 WBC (Bld) 0.2 % 0 - 2 % [place] Eosinophils (Bld) [#/Vol] 0.0 10*3/uL 0 - 0.5 10*3/uL [place] Eosinophils/100 WBC (Bld) 0.0 % Low 1 - 6 % [place] Erythrocyte distribution width (RBC) [Ratio] 13.8 % 11.5 - 14.5 % [place] Granulocytes/100 WBC (Bld) 92.2 % High 40 - 80 % [place] Hematocrit (Bld) [Volume fraction] 33.9 % Low 35 - 47 % [place] Hemoglobin (Bld) [Mass/Vol] 11.1 g/dL Low 11.7 - 16 g/dL [place] Interpretation and review of laboratory results Abnormal [place] Lymphocytes (Bld) [#/Vol] 0.6 10*3/uL Low 1 - 4.3 10*3/uL [place] Lymphocytes/100 WBC (Bld) 3.9 % Low 20 - 40 % [place] MCH (RBC) [Entitic mass] 31.0 pg 26 - 34 pg [place] MCHC (RBC) [Mass/Vol] 32.8 % 32 - 36 % [place] MCV (RBC) [Entitic vol] 94.6 fL 79 - 98 fL [place], [place] Monocytes (Bld) [#/Vol] 0.5 10*3/uL 0 - 0.8 10*3/uL [place] Monocytes/100 WBC (Bld) 3.7 % 2 - 10 % [place] Platelet mean volume (Bld) [Entitic vol] 7.5 fL 7.4 - 10.4 fL [place] Platelets (Bld) [#/Vol] 208 10*3/uL 140 - 440 10*3/uL [place] RBC (Bld) [#/Vol] 3.58 10*6/uL Low 3.8 - 5.2 10*6/uL [place] WBC (Bld) [#/Vol] 14.7 10*3/uL High 3.6 - 10.7 10*3/uL [place] Test Performed by [facility], [address], [place], [place] [address] [place] Basic Metabolic Panelon 05-1 Anion gap [Moles/Vol] 8 mmol/L [place] Calcium [Mass/Vol] 8.2 mg/dL Low 8.4 - 10. 4 mg/dL [place] Chloride [Moles/Vol] 99 mmol/L 98 - 10 7 mmol/L [place] CO2 [Moles/Vol] 28 mmol/L 22 - 30 mmol/L [place] Creatinine [Mass/Vol] 0.49 mg/dL Low 0.52 - 1.25 mg/dL [place] EGFR IF NonAfrican [place] >90.0 >60 mL/min [place] Comment on above: KDIGO guidelines pro [...] MDRD (S/P/Bld) [Vol rate/Area] mL/min/{1.73_m2} >60 mL/min [place] Glucose [Mass/Vol] 185 mg/dL High 70 - 100 mg/dL [place] Interpretation and review of laboratory results Abnormal [place] Potassium [Moles/Vol] 3.7 mmol/L 3.5 - 5.1 mmol/L [place] Sodium [Moles/Vol] 134 mmol/L Low 135 - 145 mmol/L [place] Urea nitrogen [Mass/Vol] 11 mg/dL 7 - 20 mg/d L [place] CBC Auto Differentialon 05-1 Absolute Baso # 0.0 10*3/uL 0 - 0.2 10*3/uL [place] Absolute Neut # 10.2 10*3/uL High 1.8 - 7 10*3/uL [place] Basophils/100 WBC (Bld) 0.0 % 0 - 2 % [place] Eosinophils (Bld) [#/Vol] 0.0 10*3/uL 0 - 0.5 10*3/uL [place] Eosinophils/100 WBC (Bld) 0.0 % Low 1 - 6 % [place] Erythrocyte distribution width (RBC) [Ratio] 14.0 % 11.5 - 14.5 % [place] Granulocytes/100 WBC (Bld) 94.9 % High 40 - 80 % [place] Hematocrit (Bld) [Volume fraction] 35.8 % 35 - 47 % [place] Hemoglobin (Bld) [Mass/Vol] 11.9 g/dL 11.7 - 16 g/dL [place] Interpretation and review of laboratory results Abnormal [place] Lymphocytes (Bld) [#/Vol] 0.3 10*3/uL Low 1 - 4.3 10*3/uL [place] Lymphocytes/100 WBC (Bld) 3.1 % Low 20 - 40 % [place] MCH (RBC) [Entitic mass] 31.3 pg 26 - 34 pg [place] MCHC (RBC) [Mass/Vol] 33.1 % 32 - 36 % [place] MCV (RBC) [Entitic vol] 94.5 fL 79 - 98 fL [place], [place] Monocytes (Bld) [#/Vol] 0.2 10*3/uL 0 - 0.8 10*3/uL [place] Monocytes/100 WBC (Bld) 2.0 % 2 - 10 % [place] Platelet mean volume (Bld) [Entitic vol] 7.0 fL Low 7.4 - 10.4 fL [place] Platelets (Bld) [#/Vol] 180 10*3/uL 140 - 440 10*3/uL [place] RBC (Bld) [#/Vol] 3.79 10*6/uL Low 3.8 - 5.2 10*6/uL [place] WBC (Bld) [#/Vol] 10.8 10*3/uL High 3.6 - 10.7 10*3/uL [place] Test Performed by [facility], [address] [place], [place], [place] [address] [place] [address] Gram Stainon 08-03-2019 INR Coag (Bld) [Relative time] Moderate epithelial cells/lpf. Many polymorphonuclear cells/lpf. Moderate gram positive cocci Rare gram negative bacilli. Few gram positive bacilli. Few yeast. [place] Test Performed by [facility] [employer], [address] [place] [address] Specimen Source Comment:Sputum Expectorated [place] Legionella Antigen, Urineon 08-03-2019 LEGIONELLA ANTIGEN Legionella antigen N OT DETECTED. [place] Magnesiumon 08-03-2019 Magnesium [Mass/Vol] 2.1 mg/dL 1.6 - 2 .3 mg/dL [place] Otheron 08-03-2019 Test Performed by [facility], [address] [place], [place], [place] [address] [place] Test Performed by [facility], [facility] [place] [address] Specimen Source Comment:Urine, clean catch [place] Respiratory Virus PCR Panelo n 08-03-2019 Respiratory Panel PCR NEGATIVE: No targe ts were detected by the [employer] Upper Respiratory Pathogens PCR Panel. PLEASE NOTE: [...] pertussis, Bordetella parapertussis, Chlamydia pneumoniae, Mycoplasma pneumoniae [place] Test Performed by [facility], [address] [place] [id number] Specimen Source Comment:Nasopharyngeal Swab [place] STREP PNEUMONIAE ANTIGENon 0 08-03-2019 STREP PNEUMONIAE ANTIGEN, URINE Strep pneumo antigen NOT DETECTED. [place] Urinalysison 08-03-2019 Appearance (U) Clear Clear NA [place] Comment on above: . Bilirubin Urine Negative Negative mg/dL [place] Comment on above: . Color (U) Yellow Lt. Yellow NA [place] Comment on above: . Glucose, Ur Normal Normal (<70) mg/dL [place] Comment on above: . Interpretation and review of laboratory results Abnormal [place] Ketones Ql (U) Negative Negative mg/dL [place] Comment on above: . LEUKOCYTES, UA Negative Negative Sandra/uL [place] Comment on above: . Mucous Threads Few Negative /[LPF] [place] Comment on above: . Nitrite, Urine Negative Negative NA [place] Comment on above: . Occult Blood,Urine Negative Negative mg/dL [place] Comment on above: . pH (U) 6.5 [pH] [place] Comment on above: . Protein (U) [Mass/Vol] 10 mg/dL Abnormal Negative Me [place], [place] Comment on above: . RBC (U) [#/Vol] 0-2 0 - 2 /[HPF] [place] Comment on above: . Specific [place], Urine 1.014 [place] Comment on above: . Squam Epithel, UA 0-2 3 - 5 /[HPF] [place] Comment on above: . Urobilinogen, Urine 2 mg/dL Abnormal Normal (0-1) [place] Comment on above: . WBC, UA 0-2 0 - 5 /[HPF] [place] Comment on above: . Test Performed by [facility], [address] [place], [place] [address] [place] Basic Metabolic Panelon 05-1 Anion gap [Moles/Vol] 11 mmol/L [place] Calcium [Mass/Vol] 8.7 mg/dL 8.4 - 10. 4 mg/dL [place] Chloride [Moles/Vol] 101 mmol/L 98 - 10 7 mmol/L [place] CO2 [Moles/Vol] 26 mmol/L 22 - 30 mmol/L [place] Creatinine [Mass/Vol] 0.61 mg/dL 0.52 - 1.25 mg/dL [place] EGFR IF NonAfrican [place] >90.0 >60 mL/min [place] Comment on above: KDIGO guidelines pro [...] MDRD (S/P/Bld) [Vol rate/Area] mL/min/{1.73_m2} >60 mL/min [place] Glucose [Mass/Vol] 118 mg/dL High 70 - 100 mg/dL [place] Interpretation and review of laboratory results Abnormal [place] Potassium [Moles/Vol] 3.5 mmol/L 3.5 - 5.1 mmol/L [place] Sodium [Moles/Vol] 139 mmol/L 135 - 145 mmol/L [place] Urea nitrogen [Mass/Vol] 9 mg/dL 7 - 20 mg/d L [place] Test Performed by [email or web address] [facility], [address] [place] [id number] [place] [address] COVID-19on 08-02-2019 SARS-CoV-2 Not Detected Expected Result: Not Detected _ Real-time, RT-PCR performed on the [employer] by the [facility] Microbiology Service. Negative results do not preclude SARS-CoV-2 infection and should not be used as the sole basis for treatment or other patient management decisions. This assay was developed by [facility] and distributed under an Emergency Use Authorization (EUA) granted by the FDA for the qualitative detection of SARS-CoV-2 nucleic acid. [place], [place] Test Performed by [facility], [address] [place] [id number] Specimen Source Comment:Nasopharyngeal Swab [place], [place] Hemogram (CBC)on 08-02-2019 Erythrocyte distribution width (RBC) [Ratio] 14.1 % 11.5 - 14.5 % [place] Hematocrit (Bld) [Volume fraction] 37.5 % 35 - 47 % [place] Hemoglobin (Bld) [Mass/Vol] 12.5 g/dL 11.7 - 16 g/dL [place] Interpretation and review of laboratory results Abnormal [place] MCH (RBC) [Entitic mass] 31.5 pg 26 - 34 pg [place] MCHC (RBC) [Mass/Vol] 33.4 % 32 - 36 % [place] MCV (RBC) [Entitic vol] 94.3 fL 79 - 98 fL [place], [place] Platelet mean volume (Bld) [Entitic vol] 7.6 fL 7.4 - 10.4 fL [place] Platelets (Bld) [#/Vol] 196 10*3/uL 140 - 440 10*3/uL [place] RBC (Bld) [#/Vol] 3.98 10*6/uL 3.8 - 5.2 10*6/uL [place] WBC (Bld) [#/Vol] 12.6 10*3/uL High 3.6 - 10.7 10*3/uL [place] Test Performed by [facility], [address] Lactic Acid, Plasmaon 2019 Interpretation and review of laboratory results Abnormal [place] Lactate [Moles/Vol] 0.6 mmol/L Low 0.7 - 2 mmol/L [place] Test Performed by [facility], [address] Troponin x1on 08-02-2019 Troponin I.cardiac [Mass/Vol] ng/mL 0 - 0.034 ng/mL [place] Comment on above: . Test Performed by [facility], [address] XR CHEST PORTABLEon 08-02-19 20 Real, [facility] Results From [facility] - 08/02/2019 6:51 PM EDT Patient Name: GONZALO DELUCA ---Diagnostic Radiology--- Exam Date/Time 08/02/2019 18:40:13 EDT Exam CR Chest Portable Ordering Physician HeatherMary MORELOS JOANIE Accession Number [id number] CPT4 Codes 99219 () Reason For Exam SOB, cough Report [...] Osseous degenerative changes. Report Dictated on Workstation: [facility] --- Final --- Dictating Physician: MD CAMACHO BRIAN Signed Date and Time: 08/02/2019 6:49 pm Signed by: MD CAMACHO BRIAN Transcribed Date and Time: 08/02/2019 6:50 [place] Patient Name: GONZALO DELUCA ---Diagnostic Radiology--- Exam Date/Time 08/02/2019 18:40:13 EDT Exam CR Chest Portable Ordering Physician HeatherMary JOANIE MORELOS Accession Number [id number] CPT4 Codes 80849 () Reason For Exam SOB, cough Report [...] Osseous degenerative changes. Report Dictated on Workstation: [facility] --- Final --- Dictating Physician: MD CAMACHO BRIAN Signed Date and Time: 08/02/2019 6:49 pm Signed by: MD CAMACHO BRIAN Transcribed Date and Time: 08/02/2019 6:50 [facility] [place], [place] Vital Signs Date Time Vital Sign Value Performing Clinician Facility 01-22-2025 20:32-0500 Heart rate 93 /min Freddy Linder MD Work Phone: [facility] 01-22-2025 20:32-0500 Respiratory rate 18 /min Freddy Linder MD Work Phone: [facility] 01-22-2025 20:32-0500 SaO2% (BldA) [Mass fraction] 94 % Freddy Linder MD Work Phone: [facility] 01-22-2025 19:11-0500 Body temperature 99 [degF] Freddy Linder MD Work Phone: [facility] 01-22-2025 19:11-0500 Diastolic blood pressure 91 mm[Hg] Freddy Linder MD Work Phone: [facility] 01-22-2025 19:11-0500 Systolic blood pressure 165 mm[Hg] Freddy Linder MD Work Phone: [facility] 01-22-2025 05:46-0500 Body mass index (BMI) [Ratio] 20.29 kg/m2 Freddy Linder MD Work Phone: [facility] 01-22-2025 05:46-0500 Body weight 53.62 kg Freddy Linder MD Work Phone: [facility] 01-21-2025 13:40-0500 Body height 162.6 cm Freddy Linder MD Work Phone: [facility] 01-14-2025 07:06-0400 SaO2% (BldA) [Mass fraction] 94.7 % Freddy Linder MD Work Phone: [facility] 08-20-2024 10:28-0400 Body height 162.6 cm Elyssa Tesfaye NP Work Phone: [facility] 08-20-2024 10:28-0400 Body mass index (BMI) [Ratio] 16 kg/m2 Elyssa Tesfaye NP Work Phone: [facility] 08-20-2024 10:28-0400 Body temperature 96.8 [degF] Elyssa Tesfaye [employer] C[employer]IVER Work Phone: [facility] 08-20-2024 10:28-0400 Body weight 42.27 kg Elyssa Tesfaye [employer] C[employer]GIVER Work Phone: [facility] 08-20-2024 10:28-0400 Diastolic blood pressure 67 mm[Hg] Elyssa Tesfaye [employer] C[employer]GIVER Work Phone: [facility] 08-20-2024 10:28-0400 Heart rate 92 /min Elyssa Tesfaye [employer] CH[employer] C[employer]GIVER Work Phone: [facility] 08-20-2024 10:28-0400 SaO2% (BldA) [Mass fraction] 91 % Elyssa Tesfaye [employer] CHILD CAREGIVER Work Phone: [facility] Comment on above: 4Lp 08-20-2024 10:28-0400 Systolic blood pressure 105 mm[Hg] Elyssa Tesfaye [employer] CH[employer] C[employer]GIVER Work Phone: [facility] 08-08-2024 13:22-0400 Heart rate 88 /min Luis E Mudrakola DO Work Phone: [facility] 08-08-2024 13:22-0400 Respiratory rate 24 /min Luis E Mudrakola DO Work Phone: [facility] 08-08-2024 13:22-0400 SaO2% (BldA) [Mass fraction] 92 % Luis E Mudrakola DO Work Phone: [facility] 08-08-2024 08:14-0400 Body temperature 97.2 [degF] Luis E Mudrakola DO Work Phone: [facility] 08-08-2024 08:14-0400 Diastolic blood pressure 64 mm[Hg] Luis E Mudrakola DO Work Phone: [facility] 08-08-2024 08:14-0400 Systolic blood pressure 99 mm[Hg] Luis E Mudrakola DO Work Phone: [facility] 08-06-2024 14:25-0400 Body height 162.6 cm Luis E Keating DO Work Phone: [facility] 08-03-2024 21:01-0400 Body mass index (BMI) [Ratio] 15.29 kg/m2 Luis E Glaserla DO Work Phone: [facility] 08-03-2024 21:01-0400 Body weight 40.4 kg Luis E Keating DO Work Phone: [facility] 07-30-2024 14:53-0400 Body height 164.1 cm Herminia Case MD Work Phone: [facility] 07-30-2024 14:53-0400 Body mass index (BMI) [Ratio] 15.08 kg/m2 Herminia Case MD Work Phone: [facility] 07-30-2024 14:53-0400 Body temperature 98.4 [degF] Herminia Case MD Work Phone: [facility] 07-30-2024 14:53-0400 Body weight 40.6 kg Herminia Case MD Work Phone: [facility] 07-30-2024 14:53-0400 Diastolic blood pressure 78 mm[Hg] Herminia Case MD Work Phone: [facility] 07-30-2024 14:53-0400 Heart rate 106 /min Herminia Case MD Work Phone: [facility] 07-30-2024 14:53-0400 SaO2% (BldA) [Mass fraction] 82 % Herminia Case MD Work Phone: [facility] 07-30-2024 14:53-0400 Systolic blood pressure 120 mm[Hg] Herminia Case MD Work Phone: [facility] 04-28-2024 01:19-0500 Diastolic blood pressure 78 mm[Hg] Flako Altamirano MD Work Phone: [facility] 04-28-2024 01:19-0500 Heart rate 87 /min Flako Altamirano MD Work Phone: [facility] 04-28-2024 01:19-0500 Respiratory rate 16 /min Flako Altamirano MD Work Phone: [facility] 04-28-2024 01:19-0500 SaO2% (BldA) [Mass fraction] 96 % Flako Altamirano MD Work Phone: [facility] 04-28-2024 01:19-0500 Systolic blood pressure 119 mm[Hg] Flako Altamirano MD Work Phone: [facility] 04-27-2024 23:43-0500 Body height 160 cm Flako Altamirano MD Work Phone: [facility] 04-27-2024 23:43-0500 Body mass index (BMI) [Ratio] 19.13 kg/m2 Flako Altamirano MD Work Phone: [facility] 04-27-2024 23:43-0500 Body temperature 98.1 [degF] Flako Altamirano MD Work Phone: [facility] 04-27-2024 23:43-0500 Body weight 48.99 kg Flako Altamriano MD Work Phone: [facility] 10-16-2023 21:24-0400 Body temperature 98.1 [degF] Herminia Case MD Work Phone: [facility] 10-16-2023 21:24-0400 Diastolic blood pressure 95 mm[Hg] Herminia Case MD Work Phone: [facility] 10-16-2023 21:24-0400 Heart rate 99 /min Herminia Case MD Work Phone: [facility] 10-16-2023 21:24-0400 Respiratory rate 14 /min Herminia Case MD Work Phone: [facility] 10-16-2023 21:24-0400 SaO2% (BldA) [Mass fraction] 94 % Herminia Case MD Work Phone: [facility] 10-16-2023 21:24-0400 Systolic blood pressure 125 mm[Hg] Herminia Case MD Work Phone: [facility] 09-22-2023 07:58-0400 Body temperature 97.39 [degF] Jono Weathers MD Work Phone: [facility] 09-22-2023 07:58-0400 Diastolic blood pressure 96 mm[Hg] Jono Weathers MD Work Phone: [facility] 09-22-2023 07:58-0400 Heart rate 99 /min Jono Weathers MD Work Phone: [facility] 09-22-2023 07:58-0400 Respiratory rate 17 /min Jono Weathers MD Work Phone: [facility] 09-22-2023 07:58-0400 SaO2% (BldA) [Mass fraction] 96 % Jono Weathers MD Work Phone: [facility] 09-22-2023 07:58-0400 Systolic blood pressure 140 mm[Hg] Jono Weathers MD Work Phone: [facility] 09-20-2023 15:22-0400 Body height 165.1 cm Jono Weathers MD Work Phone: [facility] 09-20-2023 15:22-0400 Body mass index (BMI) [Ratio] 19.14 kg/m2 Jono Weathers MD Work Phone: [facility] 09-20-2023 15:22-0400 Body weight 52.16 kg Jono Weathers MD Work Phone: [facility] 09-08-2023 15:40-0400 Body height 164.1 cm Barbi Goldberg MD Work Phone: [facility] 09-08-2023 15:40-0400 Body mass index (BMI) [Ratio] 20.61 kg/m2 Barbi Goldberg MD Work Phone: [facility] 09-08-2023 15:40-0400 Body temperature 99.3 [degF] Barbi Goldberg MD Work Phone: [facility] 09-08-2023 15:40-0400 Body weight 55.5 kg Barbi Goldberg MD Work Phone: [facility] 09-08-2023 15:40-0400 Diastolic blood pressure 87 mm[Hg] Barbi Goldberg MD Work Phone: [facility] 09-08-2023 15:40-0400 Heart rate 105 /min Barbi Goldberg MD Work Phone: [facility] 09-08-2023 15:40-0400 SaO2% (BldA) [Mass fraction] 92 % Barbi Goldberg MD Work Phone: [facility] 09-08-2023 15:40-0400 Systolic blood pressure 139 mm[Hg] Barbi Goldberg MD Work Phone: [facility] 08-07-2023 18:00-0400 Diastolic blood pressure 79 mm[Hg] Herminia Case MD Work Phone: [facility] 08-07-2023 18:00-0400 Heart rate 97 /min Herminia Case MD Work Phone: [facility] 08-07-2023 18:00-0400 Respiratory rate 23 /min Herminia Case MD Work Phone: [facility] 08-07-2023 18:00-0400 SaO2% (BldA) [Mass fraction] 92 % Herminia Case MD Work Phone: [facility] 08-07-2023 18:00-0400 Systolic blood pressure 137 mm[Hg] Herminia Case MD Work Phone: [facility] 08-07-2023 14:41-0400 Body mass index (BMI) [Ratio] 20.8 kg/m2 Herminia Case MD Work Phone: [facility] 08-07-2023 14:41-0400 Body temperature 98.01 [degF] Herminia Case MD Work Phone: [facility] 08-07-2023 14:41-0400 Body weight 56.7 kg Herminia Case MD Work Phone: [facility] 05-02-2023 14:31-0500 Body height 164.1 cm Herminia Case MD Work Phone: [facility] 05-02-2023 14:31-0500 Body temperature 98.1 [degF] Herminia Case MD Work Phone: [facility] 05-02-2023 14:31-0500 Body weight 60.1 kg Herminia Case MD Work Phone: [facility] 05-02-2023 14:31-0500 Diastolic blood pressure 78 mm[Hg] Herminia Case MD Work Phone: [facility] 05-02-2023 14:31-0500 Heart rate 87 /min Herminia Case MD Work Phone: [facility] 05-02-2023 14:31-0500 SaO2% (BldA) [Mass fraction] 90 % Herminia Case MD Work Phone: [facility] 05-02-2023 14:31-0500 Systolic blood pressure 112 mm[Hg] Herminia Case MD Work Phone: [facility] 02-18-2023 09:31-0500 Body temperature 98.01 [degF] Lorenzo Orozco MD Work Phone: [facility] 02-18-2023 09:31-0500 Diastolic blood pressure 76 mm[Hg] Lorenzo Orozco MD Work Phone: [facility] 02-18-2023 09:31-0500 Heart rate 87 /min Lorenzo Orozco MD Work Phone: [facility] 02-18-2023 09:31-0500 Respiratory rate 20 /min Lorenzo Orozco MD Work Phone: [facility] 02-18-2023 09:31-0500 SaO2% (BldA) [Mass fraction] 97 % Lorenzo Orozco MD Work Phone: [facility] 02-18-2023 09:31-0500 Systolic blood pressure 128 mm[Hg] Lorenzo Orozco MD Work Phone: [facility] 02-14-2023 10:00-0500 Body mass index (BMI) [Ratio] 22.47 kg/m2 Lorenzo Orozco MD Work Phone: [facility] 02-14-2023 10:00-0500 Body weight 61.24 kg Lorenzo Orozco MD Work Phone: [facility] 02-13-2023 19:05-0500 Body height 165.1 cm Lorenzo Orozco MD Work Phone: [facility] 01-14-2023 16:00-0400 Body height 164.1 cm Herminia Case MD Work Phone: [facility] 01-14-2023 16:00-0400 Body temperature 97.59 [degF] Herminia Case MD Work Phone: [facility] 01-14-2023 16:00-0400 Body weight 62.14 kg Herminia Case MD Work Phone: [facility] 01-14-2023 16:00-0400 Diastolic blood pressure 70 mm[Hg] Herminia Case MD Work Phone: [facility] 01-14-2023 16:00-0400 Heart rate 83 /min Herminia Case MD Work Phone: [facility] 01-14-2023 16:00-0400 SaO2% (BldA) [Mass fraction] 93 % Herminia Case MD Work Phone: [facility] 01-14-2023 16:00-0400 Systolic blood pressure 100 mm[Hg] Herminia Case MD Work Phone: [facility] 11-08-2022 08:37-0400 Heart rate 87 /min Austyn Mccann DO Work Phone: [facility] 11-08-2022 08:37-0400 Respiratory rate 16 /min Austyn Mccann DO Work Phone: [facility] 11-08-2022 08:37-0400 SaO2% (BldA) [Mass fraction] 97 % Austyn Mccann DO Work Phone: [facility] 11-08-2022 07:29-0400 Body temperature 97.81 [degF] Austyn Mccann DO Work Phone: [facility] 11-08-2022 07:29-0400 Diastolic blood pressure 63 mm[Hg] Austyn Mccann DO Work Phone: [facility] 11-08-2022 07:29-0400 Systolic blood pressure 108 mm[Hg] Austyn Mccann DO Work Phone: [facility] 11-06-2022 18:36-0400 Body height 162.6 cm Austyn Mccann DO Work Phone: [facility] 11-06-2022 18:36-0400 Body mass index (BMI) [Ratio] 22.31 kg/m2 Austyn Mccann DO Work Phone: [facility] 11-06-2022 18:36-0400 Body weight 58.97 kg Austyn Mccann DO Work Phone: [facility] 10-20-2022 14:06-0400 Body height 160 cm Kisha Afshin 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 Work Phone: [facility] 10-20-2022 14:06-0400 Body mass index (BMI) [Ratio] 23.56 kg/m2 Kisha Afshin 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 Work Phone: [facility] [facility] [employer] 10-20-2022 14:06-0400 Body weight 60.33 kg Kisha Afshin 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 Work Phone: [employer] [facility] 10-20-2022 14:06-0400 Diastolic blood pressure 83 mm[Hg] Kisha Afshin 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 Work Phone: [facility] 10-20-2022 14:06-0400 Heart rate 96 /min Kisha Afshin 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 Work Phone: [facility] 10-20-2022 14:06-0400 Systolic blood pressure 143 mm[Hg] Kisha Pepe 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 Work Phone: [facility] 09-15-2022 14:40-0400 Body height 165.1 cm Melva Horsham PA-C Work Phone: [facility] 09-15-2022 14:40-0400 Body temperature 97.3 [degF] Melva Horsham PA-C Work Phone: [facility] 09-15-2022 14:40-0400 Body weight 61.1 kg Melva Horsham PA-C Work Phone: [facility] 09-15-2022 14:40-0400 Diastolic blood pressure 78 mm[Hg] Melva Ladonna PA-C Work Phone: [facility] 09-15-2022 14:40-0400 Heart rate 101 /min Melva Horsham PA-C Work Phone: [facility] 09-15-2022 14:40-0400 SaO2% (BldA) [Mass fraction] 95 % Melva Horsham PA-C Work Phone: [facility] 09-15-2022 14:40-0400 Systolic blood pressure 133 mm[Hg] Melva Horsham PA-C Work Phone: [facility] 05-24-2022 07:52-0500 Heart rate 98 /min Martha Flores MD Work Phone: [facility] 05-24-2022 07:52-0500 Respiratory rate 16 /min Martha Flores MD Work Phone: [facility] 05-24-2022 07:52-0500 SaO2% (BldA) [Mass fraction] 92 % Martha Flores MD Work Phone: [facility] 05-24-2022 07:24-0500 Body temperature 98.49 [degF] Martha Flores MD Work Phone: [facility] 05-24-2022 07:24-0500 Diastolic blood pressure 73 mm[Hg] Martha Flores MD Work Phone: [facility] 05-24-2022 07:24-0500 Systolic blood pressure 126 mm[Hg] Martha Flores MD Work Phone: [facility] 05-22-2022 05:38-0500 Body mass index (BMI) [Ratio] 24.32 kg/m2 Martha Flores MD Work Phone: [facility] 05-22-2022 05:38-0500 Body weight 66.3 kg Martha Flores MD Work Phone: [facility] 05-21-2022 17:58-0500 Body height 165.1 cm Martha Flores MD Work Phone: [facility] 04-21-2022 14:05-0500 Body height 165.1 cm Sally Aj 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 Work Phone: [facility] 04-21-2022 14:05-0500 Body mass index (BMI) [Ratio] 23.63 kg/m2 Sally Aj 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 Work Phone: [facility] 04-21-2022 14:05-0500 Body weight 64.41 kg Sally Aj 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 Work Phone: [facility] 04-21-2022 14:05-0500 Diastolic blood pressure 78 mm[Hg] Sally Aj 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 Work Phone: [facility] 04-21-2022 14:05-0500 Heart rate 93 /min Sally Aj 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 Work Phone: [facility] 04-21-2022 14:05-0500 Systolic blood pressure 122 mm[Hg] Sally Aj 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 Work Phone: [facility] 08-06-2021 17:18-0400 Heart rate 96 /min Herminia Case MD Work Phone: [facility] 08-06-2021 17:18-0400 SaO2% (BldA) [Mass fraction] 84 % Herminia Case MD Work Phone: [facility] 08-06-2021 16:44-0400 Diastolic blood pressure 74 mm[Hg] Herminia Case MD Work Phone: [facility] 08-06-2021 16:44-0400 Systolic blood pressure 124 mm[Hg] Herminia Case MD Work Phone: [facility] 08-06-2021 16:35-0400 Body temperature 98.8 [degF] Herminia Case MD Work Phone: [facility] 08-06-2021 16:35-0400 Body weight 58.79 kg Herminia Case MD Work Phone: [facility] 10-16-2020 14:42-0400 Body temperature 98.49 [degF] Herminia Case MD Work Phone: [facility] Work Phone: 10-16-2020 14:42-0400 Diastolic blood pressure 79 mm[Hg] Herminia Case MD Work Phone: [facility] Work Phone: 10-16-2020 14:42-0400 Heart rate 85 /min Herminia Case MD Work Phone: [facility] Work Phone: 10-16-2020 14:42-0400 Respiratory rate 20 /min Herminia Case MD Work Phone: [facility] Work Phone: 10-16-2020 14:42-0400 SaO2% (BldA) [Mass fraction] 91 % Herminia Case MD Work Phone: [facility] Work Phone: 10-16-2020 14:42-0400 Systolic blood pressure 117 mm[Hg] Herminia Case MD Work Phone: [facility] Work Phone: 03-16-2020 16:32-0500 BP Diastolic 83 mm[Hg] [facility] [place] [facility]-16-2020 16:32-0500 BP Systolic 133 mm[Hg] [facility] [place] 03-16-2020 16:32-0500 Pulse (Heart Rate) 101 /min [facility] [place] 03-16-2020 16:32-0500 Pulse Oximetry 94 % [facility] [place] 03-16-2020 16:32-0500 Respiratory Rate 20 /min [facility] [place] 03-16-2020 11:57-0500 BMI (Body Mass Index) 23.17 kg/m2 [facility] [place] 03-16-2020 11:57-0500 Body Temperature 98.8 [degF] [facility] [place] 03-16-2020 11:57-0500 Body weight 61.24 kg [facility] [place] 02-22-2020 09:21-0500 BP Diastolic 72 mm[Hg] Ziyad Menendez [facility] , [place] 02-22-2020 09:21-0500 BP Systolic 102 mm[Hg] Ziyad Menendez [facility] , [place] 02-22-2020 09:21-0500 Pulse (Heart Rate) 98 /min Ziyad Menendez [facility], [place] 02-22-2020 09:21-0500 Pulse Oximetry 92 % Ziyad Menendez [facility] , [place] 02-22-2020 09:21-0500 Respiratory Rate 16 /min [facility] [place] 02-22-2020 09:07-0500 BMI (Body Mass Index) 23.52 kg/m2 Ziyad Menendez [facility], [place] 02-22-2020 09:07-0500 Body weight 62.14 kg Ziyad Menendez [facility] , [place] 02-22-2020 09:07-0500 Height 162.6 cm Ziyad Menendez [facility] , [place] 02-21-2020 14:47-0500 Body Temperature 97.59 [degF] [facility]ad [facility] [place] 02-21-2020 14:47-0500 BP Diastolic 74 mm[Hg] Ziyad Alicia [facility] [place] [facility] [place] 02-21-2020 14:47-0500 BP Systolic 113 mm[Hg] Ziyad Alicia [facility] [place] [facility] [place] 02-21-2020 14:47-0500 Pulse (Heart Rate) 90 /min Ziyad [facility] [place], [place] 02-21-2020 14:47-0500 Respiratory Rate 20 /min Ziyad [facility] [place] 02-08-2020 09:28-0500 BMI (Body Mass Index) 23.48 kg/m2 Ziyad Alicia [facility], [place] 02-08-2020 09:28-0500 Body Temperature 98.6 [degF] Ziyad Alicia [facility] [place] 02-08-2020 09:28-0500 Body weight 62.05 kg Ziyad Alicia [facility] , [place] 02-08-2020 09:28-0500 BP Diastolic 81 mm[Hg] [facility] [place] 02-08-2020 09:28-0500 BP Systolic 98 mm[Hg] Ziyad Alicia [facility] , [place] 02-08-2020 09:28-0500 Height 162.6 cm Ziyad Alicia [facility] , [place] 02-08-2020 09:28-0500 Pulse (Heart Rate) 104 /min Ziyad Alicia [facility], [place] 02-08-2020 09:28-0500 Pulse Oximetry 91 % Ziyad Alicia [facility] , [place] 02-08-2020 09:28-0500 Respiratory Rate 16 /min [facility] [place] 02-01-2020 09:08-0500 BMI (Body Mass Index) 23.49 kg/m2 Ziyad Alicia [facility], [place] 02-01-2020 09:08-0500 Body weight 62.41 kg [facility] [place] 02-01-2020 09:08-0500 Height 163 cm [facility] [place] 01-31-2020 14:04-0500 Body Temperature 97.9 [degF] Ziyad [facility] [place] 01-31-2020 14:04-0500 BP Diastolic 82 mm[Hg] Ziyad [facility] [facility] [place] , [place] 01-31-2020 14:04-0500 BP Systolic 117 mm[Hg] [facility] [place] , [place] 01-31-2020 14:04-0500 Pulse (Heart Rate) 109 /min [facility] [place], [place] 01-31-2020 14:04-0500 Respiratory Rate 20 /min Ziyad [facility] [place] 01-25-2020 09:25-0500 Body Temperature 99.19 [degF] [facility] 01-25-2020 09:25-0500 BP Diastolic 80 mm[Hg] [facility] [place] , [place] 01-25-2020 09:25-0500 BP Systolic 113 mm[Hg] [facility] [place] 01-25-2020 09:25-0500 Pulse (Heart Rate) 104 /min [facility] [place] 01-25-2020 09:25-0500 Pulse Oximetry 93 % [facility] [place] , [place] 01-25-2020 09:25-0500 Respiratory Rate 16 /min Ziyad Alic[facility] [place] 01-25-2020 09:21-0500 BMI (Body Mass Index) 23.22 kg/m2 [facility] [place] 01-25-2020 09:21-0500 Body weight 61.69 kg [facility] , [place] 01-25-2020 09:21-0500 Height 163 cm [facility] [place] , [place] 01-24-2020 09:25-0500 BMI (Body Mass Index) 23.22 kg/m2 [facility] [place] 01-24-2020 09:25-0500 Body weight 61.69 kg [facility] [place] , [place] 12-19-2019 15:00-0400 BP Diastolic 77 mm[Hg] [facility] [place] , [place] 12-19-2019 15:00-0400 BP Systolic 144 mm[Hg] Ziyad Menendez [facility] [place] , [place] 12-19-2019 15:00-0400 Pulse (Heart Rate) 92 /min Ziyad Menendez [facility], [place] 12-19-2019 15:00-0400 Pulse Oximetry 99 % Ziyad Menendez [facility] , [place] 12-19-2019 15:00-0400 Respiratory Rate 18 /min [facility] [place] 12-19-2019 11:25-0400 BMI (Body Mass Index) 23.46 kg/m2 Ziyad Menendez [facility], [place] 12-19-2019 11:25-0400 Body Temperature 99.5 [degF] Ziyad Menendez [facility], [place] 12-19-2019 11:25-0400 Body weight 63.96 kg Ziyad Menendez [facility] , [place] 12-19-2019 11:25-0400 Height 165.1 cm Ziyad Menendez [facility] , [place] 11-24-2019 11:45-0400 Body Temperature 98.2 [degF] [facility] [place] [place] 11-24-2019 11:45-0400 BP Diastolic 81 mm[Hg] [facility] [place] 11-24-2019 11:45-0400 BP Systolic 126 mm[Hg] [facility] [place] [place] 11-24-2019 11:45-0400 Pulse (Heart Rate) 90 /min [facility] [place] [place] 11-24-2019 11:45-0400 Pulse Oximetry 97 % [facility] [place] 11-24-2019 11:45-0400 Respiratory Rate 18 /min [facility] [place] [place] 11-22-2019 10:31-0400 Height 165.1 cm [facility] [place] 11-21-2019 21:35-0400 BMI (Body Mass Index) 25.96 kg/m2 [facility] [place] 11-21-2019 21:35-0400 Body weight 70.76 kg Ray Barroso [facility], [place] 11-09-2019 22:55-0400 BMI (Body Mass Index) 24.96 kg/m2 Tani [facility], [place] 11-09-2019 22:55-0400 Body Temperature 98.29 [degF] [facility] [place] 11-09-2019 22:55-0400 Body weight 68.04 kg Tani [facility] , [place] Comment on above: from 10/21/19 11-09-2019 22:55-0400 BP Diastolic 72 mm[Hg] [facility] [place] 11-09-2019 22:55-0400 BP Systolic 120 mm[Hg] [facility] [place] 11-09-2019 22:55-0400 Pulse (Heart Rate) 107 /min [facility] [place] 11-09-2019 22:55-0400 Pulse Oximetry 95 % [facility] [place] 11-09-2019 22:55-0400 Respiratory Rate 18 /min [facility] [place] 11-05-2019 13:04-0400 BMI (Body Mass Index) 24.96 kg/m2 [facility], [place] 11-05-2019 13:04-0400 Body Temperature 98.49 [degF] [facility], [place] 11-05-2019 13:04-0400 Body weight 68.04 kg Ziyad Menendez [facility] , [place] 11-05-2019 13:04-0400 BP Diastolic 83 mm[Hg] Ziyad Menendez [facility] , [place] 11-05-2019 13:04-0400 BP Systolic 124 mm[Hg] Ziyad Menendez [facility] , [place] 11-05-2019 13:04-0400 Height 165.1 cm [facility] , [place] 11-05-2019 13:04-0400 Pulse (Heart Rate) 92 /min Ziyad Menendez [facility], [place] 11-05-2019 13:04-0400 Pulse Oximetry 89 % Ziyad Menendez [facility] , [place] 11-05-2019 13:04-0400 Respiratory Rate 16 /min Ziyad Menendez [facility] [place] 10-27-2019 17:39-0400 BP Diastolic 82 mm[Hg] [facility] [place] , [place] 10-27-2019 17:39-0400 BP Systolic 129 mm[Hg] [facility] [place] , [place] 10-27-2019 17:39-0400 Pulse (Heart Rate) 87 /min [facility] [place] 10-27-2019 17:39-0400 Pulse Oximetry 95 % Ankit [facility] , [place] 10-27-2019 17:39-0400 Respiratory Rate 18 /min Ankit [facility] , [place] 10-27-2019 15:07-0400 Body Temperature 98.2 [degF] Ankit [facility], [place] 10-27-2019 15:04-0400 BMI (Body Mass Index) 24.96 kg/m2 Ankit [facility], [place] 10-27-2019 15:04-0400 Body weight 68.04 kg Ankit [facility] , [place] 10-27-2019 15:04-0400 Height 165.1 cm Ankit [facility] , [place] 10-21-2019 23:01-0400 BP Diastolic 99 mm[Hg] [facility] , [place] 10-21-2019 23:01-0400 BP Systolic 152 mm[Hg] [facility] , [place] 10-21-2019 23:01-0400 Pulse (Heart Rate) 86 /min Jaspreet [facility], [place] 10-21-2019 23:01-0400 Pulse Oximetry 95 % [facility] , [place] 10-21-2019 23:01-0400 Respiratory Rate 18 /min [facility], [place] 10-21-2019 19:59-0400 BMI (Body Mass Index) 24.96 kg/m2 Jaspreet [facility], [place] 10-21-2019 19:59-0400 Body Temperature 98.29 [degF] [facility] [place] , [place] 10-21-2019 19:59-0400 Body weight 68.04 kg Jaspreet Otto [facility] , [place] 08-04-2019 09:35-0400 Pulse Oximetry 95 % Joaniemartir Johnson [facility] , [place] 08-04-2019 09:35-0400 Respiratory Rate 18 /min [facility] [place] 08-04-2019 09:08-0400 Body Temperature 98.1 [degF] Joanie [facility], [place] 08-04-2019 09:08-0400 BP Diastolic 74 mm[Hg] [place], [place] 08-04-2019 09:08-0400 BP Systolic 120 mm[Hg] , [place] 08-04-2019 09:08-0400 Pulse (Heart Rate) 66 /min Joanie [place], [place] 08-02-2019 20:51-0400 BMI (Body Mass Index) 23.3 kg/m2 Joanie [place], [place] 08-02-2019 20:51-0400 Body weight 63.5 kg Joanie [place], [place] 08-02-2019 20:51-0400 Height 165.1 cm [place], [place] Encounters Encounter Date Encounter Type Care Provider Facility Start: 01-24-2025 End: 01-24-2025 Telephone encounter Praedep Ashraf RCP [facility] Resp Therapy Start: 01-12-2025 End: 01-22-2025 Evaluation and management of inpatient Freddy Linder MD Work Phone: [facility] Medical Surgical Unit MSU 4S Comment on above: COPD exacerbation (H CC) (Primary Dx); Respiratory acidosis; Hypoxia; Tachycardia; DDD (degenerative disc disease), cervical Start: 12-28-2024 End: 12-28-2024 Telephone encounter Elyssa Tesfaye NP Work Phone: [facility] Sleep Medicine [facility][1] Start: 12-28-2024 End: 12-28-2024 Office outpatient visit 25 minutes Elyssa Tesfaye NP Work Phone: [facility] and Sleep Medicine [facility][1] Comment on above: Centrilobular emphys yanna (HCC) (Primary Dx); Chronic respiratory failure with hypoxia (HCC); History of tobacco abuse; Severe malnutrition (CMS/HCC) (HCC); Pulmonary nodule Start: 12-28-2024 End: 12-28-2024 ambulatory [facility] Start: 12-18-2024 End: 01-03-2025 Telephone encounter Desiree Redding RN [facility] Clinical Communication Start: 12-12-2024 Registered Referred Jameson Corral [facility] [employer] Start: 12-12-2024 End: 12-12-2024 ambulatory Jameson STALLINGS Facility:[facility] Start: 11-20-2024 End: 11-20-2024 ambulatory [facility] Start: 11-20-2024 End: 11-20-2024 Subsequent hospital visit by physician Elyssa Tesfaye [employer] Work Phone: [facility] Comment on above: Chronic obstructive pulmonary disease with acute lower respiratory infection (HCC) Start: 10-24-2024 End: 10-24-2024 ambulatory [facility] Start: 10-01-2024 ambulatory Jameson STALLINGS Faci lity:[facility] Start: 10-01-2024 Registered Referred Jameson Corral - [employer] Start: 09-17-2024 End: 09-17-2024 ambulatory Jameson STALLINGS [facility] Start: 09-17-2024 End: 09-17-2024 Departed Referred Jameson [facility] Start: 09-17-2024 Registered Referred Jameson Corral - [employer] Start: 09-17-2024 End: 09-17-2024 ambulatory Jameson STALLINGS Facility:[facility] Start: 09-14-2024 End: 09-14-2024 ambulatory Jameson STALLINGS [facility] Start: 09-14-2024 End: 09-14-2024 Departed Referred Jameson Corral [facility] Start: 09-14-2024 End: 09-14-2024 ambulatory Jameson STALLINGS Facility:[facility] Start: 09-07-2024 End: 09-11-2024 Refill Herminia Case MD Work Phone: [facility] Comment on above: Refill Request Start: 09-07-2024 End: 09-07-2024 Telephone encounter Ziyad Menendez MD Work Phone: [facility] Gynecologic Oncology - [place] Start: 09-06-2024 End: 09-06-2024 ambulatory Ziyad Menendez MD Work Phone: [facility] Comment on above: Other specified comp lication of vascular prosthetic devices, implants and grafts, initial encounter (HCC) (Primary Dx); Poor venous access Start: 08-22-2024 End: 09-03-2024 Refill Herminia Case MD Work Phone: [facility] Comment on above: Refill Request Start: 08-20-2024 End: 08-20-2024 Office outpatient visit 25 minutes Elyssa Tesfaye NP Work Phone: [facility] Pul[facility] and Sleep Medicine [facility] Comment on above: Hospital discharge f ollow-up (Primary Dx); Acute on chronic respiratory failure with hypoxia (HCC); Centrilobular emphysema (HCC); Aspiration pneumonia of left lower lobe, unspecified aspiration pneumonia type (HCC); Chronic obstructive pulmonary disease with acute lower respiratory infection (HCC); History of tobacco abuse; Severe malnutrition (CMS/HCC) (HCC) Start: 08-20-2024 End: 08-20-2024 ambulatory ELYSSA TESFAYE [facility] Start: 08-18-2024 End: 08-24-2024 Refill Herminia Case MD Work Phone: [facility] Comment on above: Refill Request Start: 08-15-2024 ambulatory Jameson STALLINGS Faci lity:[facility] Start: 08-13-2024 End: 08-14-2024 Refill Melva Juárez PA-C Work Phone: [facility] Comment on above: Refill Request Start: 08-08-2024 End: 08-08-2024 Orders Only Melva Garcia RN [facility] Palliative [facility] Comment on above: Chronic obstructive pulmonary disease, unspecified COPD type (HCC) (Primary Dx); Severe malnutrition (CMS/HCC) (HCC) Start: 07-30-2024 End: 08-08-2024 Evaluation and management of inpatient Luis E Keating DO Work Phone: [facility] Cardiac Progressive Care Unit PCU 2E Comment on above: Adult failure to thr kenton (Primary Dx); Severe protein-calorie malnutrition (HCC); Closed supracondylar fracture of left humerus, initial encounter; Severe malnutrition (CMS/HCC) (HCC); Pulmonary emphysema, unspecified emphysema type (HCC); Chronic obstructive pulmonary disease, unspecified COPD type (HCC) Start: 07-30-2024 End: 07-30-2024 Office outpatient visit 25 minutes Herminia Case MD Work Phone: [facility] Comment on above: Chronic respiratory failure with hypoxia (HCC) (Primary Dx); Centrilobular emphysema (HCC); Adult failure to thrive; Severe protein-calorie malnutrition (HCC) Start: 07-30-2024 End: 07-30-2024 ambulatory [facility] Facility:[facility] Start: 07-22-2024 End: 07-23-2024 Refill Herminia Case MD Work Phone: [facility] Comment on above: Refill Request Start: 06-30-2024 End: 07-02-2024 Telephone encounter Herminia Case MD Work Phone: [facility] Comment on above: Orders Start: 06-26-2024 End: 06-26-2024 Refill Melva Juárez PA-C Work Phone: [facility] Comment on above: Refill Request Start: 06-07-2024 End: 06-07-2024 Telephone encounter Maddi Valero LPN Work Phone: [facility] Comment on above: Home Care (SOC appro martín.) Home Care (Confirmat ion call.) Start: 06-06-2024 End: 06-06-2024 ambulatory HERMINIA CASE Facility:[facility] Start: 06-06-2024 End: 06-06-2024 Telemedicine consultation with patient Herminia Case MD Work Phone: [facility] Start: 06-06-2024 End: 06-06-2024 Telephone encounter Herminia Case MD Work Phone: [facility] Comment on above: Home Care Panlobular emphysema (HCC) (Primary Dx); Moderate episode of recurrent major depressive disorder (HCC); Chronic respiratory failure with hypoxia (HCC) Start: 05-26-2024 End: 05-28-2024 Refill Herminia Case MD Work Phone: [facility] Comment on above: Refill Request Start: 05-22-2024 End: 06-22-2024 ambulatory Herminia Case MD Work Phone: [facility] Start: 05-08-2024 End: 05-10-2024 Refill Melva Juárez PA-C Work Phone: [facility] Comment on above: Refill Request Start: 05-02-2024 End: 05-02-2024 [facility] Herminia Case MD Work Phone: [facility] Comment on above: Compression fracture of body of thoracic vertebra (HCC) (Primary Dx); Panlobular emphysema (HCC); Moderate episode of recurrent major depressive disorder (HCC); PAUL (generalized anxiety disorder); Chronic respiratory failure with hypoxia (HCC); Hyperlipidemia, mixed; Hyperglycemia; Other closed nondisplaced fracture of proximal end of right humerus with routine healing, subsequent encounter Start: 04-30-2024 End: 05-01-2024 Refill Herminia Case MD Work Phone: [facility] Comment on above: Refill Request Start: 04-27-2024 End: 04-28-2024 Emergency department patient visit Flako Altamirano MD Work Phone: [facility] ED Comment on above: Contusion of face, i nitial encounter (Primary Dx) Start: 04-23-2024 End: 04-24-2024 ambulatory Melva FELIX-C Work Phone: [facility] Comment on above: Copd meds Start: 04-06-2024 End: 04-06-2024 Refill Herminia Case MD Work Phone: [facility] Comment on above: Refill Request Start: 03-31-2024 End: 04-03-2024 Refill Herminia Case MD Work Phone: [facility] Comment on above: Refill Request Start: 03-18-2024 End: 03-20-2024 Refill Melva FELIX-C Work Phone: [facility] Comment on above: Refill Request Start: 03-10-2024 End: 03-12-2024 Refill Melva FELIX-C Work Phone: [facility] Comment on above: Refill Request Start: 03-09-2024 End: 03-09-2024 Refill Herminia Case MD Work Phone: [facility] Comment on above: Refill Request Start: 03-04-2024 End: 03-06-2024 Refill Herminia Case MD Work Phone: [facility] Comment on above: Refill Request Start: 03-01-2024 End: 03-05-2024 Telephone encounter Herminia Case MD Work Phone: [facility] Comment on above: Medication Problem Start: 02-06-2024 End: 02-07-2024 ambulatory Melva PARRYC Work Phone: [facility] Comment on above: Buspar Refill Request Start: 01-11-2024 End: 01-11-2024 Refill Brando Simon MD Work Phone: [facility] Comment on above: Refill Request Start: 01-10-2024 End: 01-11-2024 Refill Melva PARRYC Work Phone: [facility] Comment on above: Refill Request Start: 01-09-2024 End: 01-11-2024 Refill Herminia Case MD Work Phone: [facility] Comment on above: Refill Request Copd med Start: 01-08-2024 End: 01-09-2024 Refill Herminia Case MD Work Phone: [facility] Comment on above: Refill Request Start: 12-30-2023 End: 12-30-2023 ambulatory Joaquina Jalloh Jalen 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[employer] Work Phone: [facility] Comment on above: Panlobular emphysema (HCC) Start: 12-30-2023 End: 12-30-2023 Telemedicine consultation with patient Joaquina Germanintady Rao 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[employer] Work Phone: [facility] Start: 12-27-2023 End: 12-27-2023 Refill Jessica Kong 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[employer] Work Phone: [facility] Comment on above: Refill Request Start: 12-27-2023 End: 12-27-2023 Telephone encounter Herminia Case MD Work Phone: [facility] Comment on above: Orders Start: 12-13-2023 End: 12-14-2023 Telephone encounter Herminia Case MD Work Phone: [facility] Comment on above: Results Refill Request Start: 12-06-2023 End: 12-08-2023 Home visit Herminia Case MD Work Phone: [facility] Comment on above: Osteoporotic vertebr al collapse, with routine healing, subsequent encounter (Primary Dx) Start: 12-06-2023 End: 12-06-2023 Telephone encounter Herminia Caes MD Work Phone: [facility] Comment on above: Orders Start: 11-28-2023 End: 11-28-2023 Refill Melva Juárez PA-C Work Phone: [facility] Comment on above: Refill Request Start: 11-14-2023 End: 11-15-2023 Telephone encounter Herminia Case MD Work Phone: [facility] Comment on above: Orders Refill Request Start: 11-12-2023 End: 11-12-2023 Refill Melva Juárez PA-C Work Phone: [facility] Comment on above: Refill Request Start: 11-02-2023 Refill Brando leblanc MD Work Phone: [facility] Comment on above: Refill Request Start: 10-28-2023 Telephone encounter Herminia warner MD Work Phone: [facility] Comment on above: Orders Start: 10-22-2023 Telephone encounter Herminia warner MD Work Phone: [address] [place] [address] Comment on above: Patient Update Start: 10-18-2023 Telephone encounter Herminia warner MD Work Phone: [facility] Comment on above: Orders Start: 10-16-2023 End: 10-16-2023 Emergency department patient visit Herminia Case MD Work Phone: [facility] ED Comment on above: Fall, initial encoun ter (Primary Dx); Compression fracture of body of thoracic vertebra (HCC) Start: 10-11-2023 Home visit Herminia Mccurdy Work Phone: [facility] Comment on above: Osteoporotic vertebr al collapse, with routine healing, subsequent encounter (Primary Dx) Start: 10-10-2023 Telephone encounter Herminia warner MD Work Phone: [facility] Comment on above: Orders Start: 10-06-2023 Home visit Herminia Mccurdy Work Phone: [facility] Comment on above: Pathological fractur e of vertebra due to other osteoporosis with routine healing, subsequent encounter (Primary Dx) Start: 10-06-2023 Telephone encounter Herminia warner MD Work Phone: [facility] Comment on above: Home Care (Physical therapy delayed 1 week) Start: 10-06-2023 Unlisted evaluation and management service Herminia Case MD Work Phone: [facility] Comment on above: OPENED IN ERROR (Mariam fisher Dx) Start: 09-21-2023 Telephone encounter Herminia warner MD Work Phone: [facility] Comment on above: Patient Update Start: 09-19-2023 End: 09-22-2023 Evaluation and management of inpatient Jono Weathers MD Work Phone: [facility] Cardiac Progressive Care Unit PCU 2E Comment on above: Near syncope (Primar y Dx); Closed head injury, initial encounter; Fall, initial encounter; Compression fracture of T5 vertebra, initial encounter (HCC); Compression fracture of T7 vertebra, initial encounter (HCC); Compression fracture of T8 vertebra, initial encounter (HCC); Compression fracture of L1 vertebra, initial encounter (HCC) Start: 09-16-2023 Refill Herminia Mccurdy Work Phone: [facility] Comment on above: Refill Request Start: 09-15-2023 Refill Herminia Mccurdy Work Phone: [facility] Comment on above: Refill Request Start: 09-14-2023 Refill Melva balderas PA-C Work Phone: [facility] Comment on above: Refill Request Start: 09-08-2023 End: 09-08-2023 ambulatory HERMINIA CASE Facility:[facility] Start: 09-08-2023 End: 09-08-2023 Patient encounter procedure Barbi Goldberg MD Work Phone: [facility] Comment on above: Herpes zoster withou t complication (Primary Dx) Start: 09-06-2023 Telephone encounter Herminia warner MD Work Phone: [facility] Comment on above: Electronic Communica tion (FAX from [facility] is going to be coming over that needs to be faxed back to them ) Start: 08-20-2023 Refill Herminia Mccurdy Work Phone: [facility] Comment on above: Refill Request Start: 08-07-2023 End: 08-07-2023 Emergency department patient visit Herminia Case MD Work Phone: [facility] ED Comment on above: Bronchitis (Primary Dx); COPD exacerbation (HCC) Start: 08-05-2023 Refill Herminia Mccurdy Work Phone: [facility] Comment on above: Refill Request Start: 07-22-2023 Refill Herminia Mccurdy Work Phone: [facility] Comment on above: Refill Request Start: 07-20-2023 Refill Melva balderas PA-C Work Phone: [facility] Comment on above: Refill Request Start: 07-05-2023 ambulatory Herminia Mccurdy Work Phone: [facility] [place] Start: 07-04-2023 Refill Gena Michaels 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[employer] Work Phone: [facility] Comment on above: Refill Request Start: 07-03-2023 Refill Gena Michaels 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[employer] Work Phone: [facility] Comment on above: Refill Request Start: 06-30-2023 Telephone encounter Herminia warner MD Work Phone: [facility] Comment on above: Medication Problem Start: 06-28-2023 ambulatory Herminia Mccurdy Work Phone: [facility] Comment on above: Breo Start: 06-25-2023 Refill Herminia Mccurdy Work Phone: [facility] Comment on above: Refill Request Start: 06-24-2023 Refill Herminia Mccurdy Work Phone: [facility] Comment on above: Refill Request Start: 06-22-2023 ambulatory Herminia Mccurdy Work Phone: [facility] [place] Start: 06-10-2023 Refill Herminia Mccurdy Work Phone: [facility] Comment on above: Refill Request Start: 06-10-2023 End: 06-10-2023 [facility] Herminia Case MD Work Phone: [facility] Comment on above: Moderate episode of recurrent major depressive disorder (HCC) (Primary Dx); Panlobular emphysema (HCC); Chronic respiratory failure with hypoxia (HCC) Start: 05-26-2023 Refill Herminia Mccurdy Work Phone: [facility] Comment on above: Refill Request Start: 05-25-2023 Telephone encounter Herminia warner MD Work Phone: [facility] Comment on above: Orders Start: 05-20-2023 End: 05-20-2023 [facility] Herminia Case MD Work Phone: [facility] Comment on above: Moderate episode of recurrent major depressive disorder (HCC) (Primary Dx); Panlobular emphysema (HCC) Start: 05-19-2023 Telephone encounter Herminia warner MD Work Phone: [facility] Comment on above: Orders Start: 05-18-2023 Home visit Herminia Mccurdy Work Phone: [facility] Comment on above: Age-related osteopor osis with current pathological fracture of left femur, initial encounter (HCC) (Primary Dx) Start: 05-18-2023 Telephone encounter Herminia warner MD Work Phone: [facility] Comment on above: Orders Start: 05-09-2023 Telephone encounter Herminia warner MD Work Phone: [facility] Comment on above: Orders Start: 05-02-2023 End: 05-02-2023 Patient encounter procedure Herminia Case MD Work Phone: [facility] Comment on above: PAUL (generalized anx iety disorder) (Primary Dx); Medication monitoring encounter; Compression fracture of body of thoracic vertebra (HCC); Other closed nondisplaced fracture of proximal end of right humerus with routine healing, subsequent encounter; Chronic respiratory failure with hypoxia (HCC); Panlobular emphysema (HCC); Moderate episode of recurrent major depressive disorder (HCC) Start: 04-29-2023 Telephone encounter Herminia warner MD Work Phone: [facility] Comment on above: Medication Problem Start: 04-27-2023 ambulatory Herminia Mccurdy Work Phone: [facility] Comment on above: Panic attacks Start: 04-21-2023 Telephone encounter Kisha mccurdy 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 - [employer] Work Phone: [facility] Gynecologic Oncology Start: 04-19-2023 Telephone encounter Herminia warner MD Work Phone: [facility] Comment on above: Orders Start: 03-07-2023 Refill Herminia Mccurdy Work Phone: [facility] Comment on above: Refill Request Start: 02-13-2023 End: 02-18-2023 Evaluation and management of inpatient Lorenzo Orozco MD Work Phone: [facility] A[facility] 2 Comment on above: Lumbar compression f racture, closed, initial encounter (HCC) (Primary Dx); Fall, initial encounter; Multiple falls; Nondisplaced fracture of neck of left femur (HCC) Start: 02-07-2023 Refill Melva balderas PA-C Work Phone: [facility] Comment on above: Refill Request Start: 02-07-2023 Telephone encounter Herminia warner MD Work Phone: [facility] Comment on above: Orders Start: 02-01-2023 ambulatory Agustina Romero [facility] Comment on above: Population Health Na vigation Outreach (/Cologuard reminder ) Start: 01-31-2023 Telephone encounter Herminia warner MD Work Phone: [facility] Comment on above: Orders Start: 01-27-2023 ambulatory Jo mariscal MA [facility] [place] Comment on above: Population Health Na vigation Outreach ([facility] [facility]) Start: 01-24-2023 Telephone encounter Herminia warnre MD Work Phone: [facility] Comment on above: Orders Start: 01-21-2023 Telephone encounter Herminia warner MD Work Phone: [facility] Comment on above: Orders Start: 01-17-2023 Telephone encounter Herminia warner MD Work Phone: [facility] Comment on above: Orders Start: 01-14-2023 End: 01-14-2023 Patient encounter procedure Herminia Case MD Work Phone: [facility] Comment on above: Compression fracture of body [...] Telephone encounter Herminia warner MD Work Phone: [facility] Comment on above: appointment cancella tion Start: 01-05-2023 Telephone encounter Herminia warner MD Work Phone: [facility] Comment on above: Missed Appointment Start: 12-30-2022 Telephone encounter Herminia warner MD Work Phone: [facility] Comment on above: Orders Start: 12-28-2022 Telephone encounter Herminia warner MD Work Phone: [facility] Comment on above: Orders Start: 12-22-2022 Telephone encounter Herminia warner MD Work Phone: [facility] Comment on above: Orders Start: 12-16-2022 Refill Herminia Mccurdy Work Phone: [facility] Comment on above: Refill Request Start: 12-10-2022 Refill Melva lovell PA-C Work Phone: [facility] Comment on above: Refill Request Start: 12-09-2022 ambulatory Melva E Free land PA-C Work Phone: [facility] Comment on above: cologuard (cologuard ) Start: 12-09-2022 Telephone encounter Herminia warner MD Work Phone: [facility] Comment on above: Orders Start: 12-07-2022 Home visit Herminia Mccurdy Work Phone: [facility] Comment on above: Age-related osteopor osis with current pathological fracture of left femur with routine healing (Primary Dx) Start: 12-07-2022 Telephone encounter Hreminia warner MD Work Phone: [facility] Comment on above: Orders Start: 11-29-2022 Telephone encounter Herminia warner MD Work Phone: [facility] Comment on above: Home Care Start: 11-22-2022 Refill Melva Balderas Free land PA-C Work Phone: [facility] Comment on above: Refill Request Start: 2022 Refill Herminia Mccurdy Work Phone: [facility] Comment on above: Refill Request Start: 11-17-2022 Refill Brando leblanc MD Work Phone: [facility] Comment on above: Refill Request Start: 11-15-2022 Refill Herminia Mccurdy Work Phone: [facility] Comment on above: Refill Request Start: 11-07-2022 ambulatory Herminia Mccurdy Work Phone: [facility] Comment on above: Renewals for my Breo and Flonase Start: 11-06-2022 End: 11-08-2022 Evaluation and management of inpatient Austyn Valentinlupillo DO Work Phone: [facility] 4S TELEMETRY Comment on above: Closed displaced int ertrochanteric fracture of left femur, initial encounter ([facility]) (Primary Dx) Start: 10-27-2022 Telephone encounter Kisha mccurdy 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 - [employer] Work Phone: [facility] Gynecologic Oncology Start: 10-22-2022 Refill Herminia Mccurdy Work Phone: [facility] Comment on above: Refill Request Start: 10-21-2022 Refill Herminia Mccurdy Work Phone: [facility] Comment on above: Refill Request Start: 10-20-2022 End: 10-20-2022 Office outpatient visit 25 minutes iKsha Pepe 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 - [employer] Work Phone: [facility] Gynecologic Oncology Comment on above: 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); Encounter for screening mammogram for malignant neoplasm of breast Start: 10-15-2022 Refill Jessica warner APRN.[employer] Work Phone: [facility] Comment on above: Refill Request Start: 09-15-2022 End: 09-15-2022 Patient encounter procedure Melva Sandoval PA-C Work Phone: [facility] Comment on above: Panlobular emphysema (HCC) (Primary Dx); COPD (chronic obstructive pulmonary disease) with acute bronchitis (HCC); Hyperlipidemia, mixed; Medication monitoring encounter; Screening for colon cancer; Medication management; Chronic midline low back pain without sciatica; DDD (degenerative disc disease), lumbar; Major depression, recurrent, chronic (HCC) Start: 08-17-2022 ambulatory Herminia Mccurdy Work Phone: Internal [facility] Start: 07-29-2022 Refill Herminia Mccurdy Work Phone: [facility] Comment on above: Refill Request Start: 07-27-2022 Refill Herminia Mccurdy Work Phone: [facility] Comment on above: Refill Request Start: 07-14-2022 ambulatory Herminia Mccurdy Work Phone: Internal [facility] Start: 07-02-2022 Telephone encounter Herminia warner MD Work Phone: [facility] Comment on above: Patient Update (Rupinder elled her home OT visit today due to illness ) Start: 07-01-2022 Telephone encounter Herminia warner MD Work Phone: [facility] Comment on above: Orders Start: 06-30-2022 Telephone encounter Herminia warner MD Work Phone: [facility] Comment on above: Medication Problem; Patient Update Start: 06-22-2022 ambulatory Herminia Mccurdy Work Phone: [facility] Comment on above: Sinus Problem Start: 06-22-2022 Refill Melva lovell PA-C Work Phone: [facility] Comment on above: Med Change Request Start: 06-22-2022 Telephone encounter Herminia warner MD Work Phone: [facility] Comment on above: Orders Start: 06-14-2022 Telephone encounter Herminia warner MD Work Phone: [facility] Comment on above: Orders Start: 06-03-2022 End: 06-03-2022 ambulatory Herminia Case MD Work Phone: [facility] Comment on above: Other closed nondisp laced [...] with patient Herminia Case MD Work Phone: [facility] Start: 06-01-2022 Telephone encounter Herminia warner MD Work Phone: [facility] Comment on above: Orders Start: 05-31-2022 Telephone encounter Herminia warner MD Work Phone: [facility] Comment on above: Home Care Management Start: 05-21-2022 End: 05-24-2022 Emergency department patient visit Martha Flores MD Work Phone: [facility] 1E MED SURG Comment on above: Fall, initial encoun ter (Primary Dx); Facial laceration, initial encounter; Closed fracture of neck of right humerus, initial encounter; Humeral head fracture, right, closed, initial encounter Start: 05-06-2022 Refill Donovan montes MD Work Phone: [facility] Comment on above: Refill Request Start: 04-21-2022 End: 04-21-2022 Office outpatient visit 15 minutes Sally Rocha 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 - [employer] Work Phone: [facility] [employer] INSTRUMENT REPAIR SUPERVISOR Oncology Comment on above: 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) Start: 04-19-2022 Refill Herminia Mccurdy Work Phone: [facility] Comment on above: Refill Request Start: 04-07-2022 Refill Herminia Mccurdy Work Phone: [facility] Comment on above: Refill Request Start: 04-06-2022 ambulatory [facility] [place] Comment on above: Population Health Na vigation Out[facility] Start: 03-08-2022 Refill Melva FELIX-C Work Phone: [facility] Comment on above: Refill Request Start: 03-05-2022 End: 03-05-2022 ambulatory Melva FELIX-C Work Phone: [facility] Comment on above: COPD (chronic obstru ctive pulmonary disease) with acute bronchitis (HCC) (Primary Dx); DDD (degenerative disc disease), lumbar; Major depression, recurrent, chronic (HCC) Start: 03-05-2022 End: 03-05-2022 Telemedicine consultation with patient Melva FELIX-C Work Phone: [facility] Start: 03-05-2022 Telephone encounter Melva FELIX-C Work Phone: [facility] Comment on above: Appointment Start: 03-03-2022 Telephone encounter Herminia warner MD Work Phone: [facility] Comment on above: Orders Start: 02-16-2022 ambulatory Herminia Evie M D Work Phone: Internal [facility] [place] Start: 02-08-2022 ambulatory Herminia Evie M D Work Phone: [facility] Comment on above: Muscle relaxer Refill Request Start: 02-01-2022 ambulatory Herminianorma Case M Hetal Work Phone: [facility] Comment on above: Nurse Triage Call Start: 01-29-2022 ambulatory Macarena leblanc 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ChristieMOTION PICTURE SET GRIP Work Phone: Telemedicine Comment on above: Other acute sinusiti s, recurrence not specified (Primary Dx) Start: 01-13-2022 Refill Herminia Case M Hetal Work Phone: [facility] Comment on above: Refill Request Start: 12-09-2021 ambulatory Herminia Case [facility] Start: 12-08-2021 ambulatory Herminia Evie M D Work Phone: [facility] Comment on above: Breo Start: 11-26-2021 Refill Herminia Case M D Work Phone: [facility] Comment on above: Refill Request Start: 10-27-2021 Refill Melva lovell PA-C Work Phone: [facility] Comment on above: Refill Request Start: 10-18-2021 Refill Herminia Case M D Work Phone: [facility] Comment on above: Refill Request Start: 10-14-2021 ambulatory Herminia Disttimmy [facility] Start: 10-14-2021 End: 10-14-2021 Subsequent hospital visit by physician Ziyad Menendez MD Work Phone: [facility] Comment on above: 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); Abnormal chest CT; Other specified complication of vascular prosthetic devices, implants and grafts, initial encounter (HCC); Poor venous access Malignant neoplasm o f exocervix (HCC); Abnormal findings on diagnostic imaging of other specified body structures; Abnormal chest CT Start: 10-13-2021 Telephone encounter Herminia warner MD Work Phone: [facility] Comment on above: Orders ([facility]-Oxy gen order.) Start: 08-26-2021 Refill Jessica warner APRN.[employer] Work Phone: [facility] Comment on above: Refill Request Start: 08-07-2021 Telephone encounter Herminia warner MD Work Phone: [facility] Comment on above: Patient Question Start: 08-06-2021 End: 08-06-2021 Patient encounter procedure Herminia Case MD Work Phone: [facility] Comment on above: Panlobular emphysema (HCC) (Primary [...] Telephone encounter Herminia warner MD Work Phone: [facility] Comment on above: Orders ([facility] ) Start: 08-04-2021 [facility] Start: 07-28-2021 Refill Jessica warner APRN.[employer] Work Phone: [facility] Comment on above: Refill Request Start: 07-01-2021 Refill Melva lovell PA-C Work Phone: [facility] Comment on above: Refill Request Start: 02-18-2021 [facility]ulatory [facility] Start: 12-26-2020 ambulatory [facility] Start: 12-26-2020 End: 12-26-2020 Subsequent hospital visit by physician Ziyad Menendez MD Work Phone: [facility] Med Onc Comment on above: 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); Poor venous access Malignant neoplasm o f exocervix (HCC); Lung nodule seen on imaging study Start: 10-16-2020 End: 10-16-2020 Emergency department patient visit Herminia Case MD Work Phone: [facility] ED Comment on above: Closed fracture of c occyx, initial encounter (HCC) (Primary Dx); Contusion of right elbow, initial encounter Start: 09-24-2020 End: 09-24-2020 Subsequent hospital visit by physician Ziyad Menendez MD Work Phone: [facility] CT Scan Comment on above: Arrived Poor venous access ( Primary Dx); Malignant neoplasm of exocervix (HCC) Start: 06-09-2020 End: 06-09-2020 Subsequent hospital visit by physician Ziyad Menendez Work Phone: [facility] Comment on above: 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); Poor venous access Start: 06-06-2020 End: 06-06-2020 Subsequent hospital visit by physician Ziyad Menendez Work Phone: [facility] CT Scan Comment on above: Abnormal findings on diagnostic imaging of other specified body structures; Abnormal CT of the chest Start: 03-16-2020 End: 03-16-2020 Emergency department patient visit Tani Madeleine Joseph Work Phone: [facility] Comment on above: COPD exacerbation (H CC) (Primary Dx); Bronchitis Start: 03-10-2020 End: 03-10-2020 Subsequent hospital visit by physician Ziyad Menendez Work Phone: [facility] CT Scan Comment on above: Malignant neoplasm o f exocervix (HCC); Lung nodule seen on imaging study Start: 03-03-2020 End: 03-03-2020 Subsequent hospital visit by physician Burke Washburn Work Phone: [facility] Rad Onc Start: 02-29-2020 End: 02-29-2020 Subsequent hospital visit by physician Burke E [place] Work Phone: [facility] Start: 02-28-2020 [...] End: 02-04-2020 Subsequent hospital visit by physician Bruke Washburn Work Phone: [facility] Start: [...] Phone: [facility] Comment on above: Poor venous [...] 01-17-2020 Subsequent hospital visit by physician Burke Diezer Work Phone: [facility] Start: 01-15-2020 End: 01-15-2020 Subsequent hospital visit by physician Burke Diezer Work Phone: [facility] Start: 01-14-2020 End: 01-14-2020 Subsequent hospital visit by physician Burke Diezer Work Phone: [facility] Start: 01-11-2020 End: 01-11-2020 Subsequent hospital visit by physician Burke Diezer Work Phone: [facility] Start: 01-09-2020 End: 01-09-2020 Subsequent hospital visit by physician Burke Balderas Wu Work Phone: [facility] Rad Onc Start: 12-26-2019 End: 12-26-2019 Subsequent hospital visit by physician Burke Diezer Work Phone: [facility] Start: 12-26-2019 End: 12-26-2019 Subsequent hospital visit by physician Burke Balderas [facility] Work Phone: [facility] Start: 12-19-2019 End: 12-20-2019 Subsequent hospital visit by physician Ziyad Menendez Work Phone: [facility] Cath & IR Lab Comment on above: Malignant neoplasm o f exocervix (HCC) Start: 12-11-2019 End: 12-11-2019 Subsequent hospital visit by physician Burke Washburn Work Phone: [facility] Start: 11-21-2019 End: 11-24-2019 Evaluation and management of inpatient Ray Milind Barroso Work Phone: [facility] 4S TELEMETRY Comment on above: Right arm weakness ( Primary Dx); Pulmonary emphysema, unspecified emphysema type (HCC) Start: 11-10-2019 End: 11-10-2019 Subsequent hospital visit by physician Herminia Case Work Phone: [facility] Comment on above: Leg swelling Start: 11-10-2019 End: 11-10-2019 Subsequent hospital visit by physician Tani Joseph Work Phone: [facility] Ultrasound Start: 11-09-2019 End: 11-09-2019 Emergency department patient visit Tani Madeleine Joseph Work Phone: [facility] Comment on above: Leg swelling (Primar y Dx) Start: 11-05-2019 End: 11-05-2019 Subsequent hospital visit by physician Ziyad Menendez Work Phone: [facility] Pre-Admit Testing Comment on above: Pre-op testing (Prim tom Dx) Start: 10-27-2019 End: 10-27-2019 Emergency department patient visit Ankit Jamie Work Phone: [facility] Comment on above: Compression fracture of L3 lumbar vertebra, sequela (Primary Dx); Acute exacerbation of chronic low back pain Start: 10-21-2019 End: 10-21-2019 Emergency department patient visit Jaspreet Otto Work Phone: [facility] Comment on above: Compression fracture of lumbar vertebra, initial encounter, unspecified lumbar vertebral level (HCC) (Primary Dx) Start: 08-02-2019 End: 08-04-2019 Evaluation and management of inpatient Joanie Johnson Work Phone: [facility] 4S TELEMETRY Procedures Date Procedure Procedure Detail Performing Clinician Start: 01-19-2025 Basic metabolic pane l calcium total Austin Walker MD Work Phone: Start: 01-18-2025 Basic metabolic pane l calcium total Austin Walker MD Work Phone: Start: 01-17-2025 Basic metabolic pane l calcium total Austin Walker MD Work Phone: Start: 01-16-2025 Respiratory pathogen s DNA and RNA panel - Lower respiratory specimen by MILANA with non-probe detection Leann Cross 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 - [employer] Work Phone: Start: 01-16-2025 Smr prim src gram/gi emsa stain bct fungi/cell Leann Cross 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 - [employer] Work Phone: Start: 01-16-2025 Basic metabolic pane l calcium total Ping Luttmann DO Work Phone: Start: 01-15-2025 Basic metabolic pane l calcium total Ping Luttmann DO Work Phone: Start: 01-15-2025 Blood gases any comb ination ph pco2 po2 co2 hco3 Leola Douglass 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 - [employer] Work Phone: Start: 01-14-2025 Blood gases any comb ination ph pco2 po2 co2 hco3 Srini Pires MD Work Phone: Start: 01-14-2025 Basic metabolic pane l calcium total Ping Luttmann DO Work Phone: Start: 01-13-2025 Radiologic exam ches t single view Clemente Lynn MD Work Phone: Start: 01-13-2025 Blood gases any comb ination ph pco2 po2 co2 hco3 Ping Luttmann DO Work Phone: Start: 01-13-2025 Comprehensive metabolic panel Clemente Lynn MD Work Phone: Start: 01-12-2025 ETHYL GLUCURONIDE SC REEN, URINE Clemente Lynn MD Work Phone: Start: 01-12-2025 Iaadiadoo not otherw ise specified Clemente Lynn MD Work Phone: Start: 01-12-2025 LEGIONELLA AND STREP TOCOCCUS URINE ANTIGEN, ORDERABLE Clemente Lynn MD Work Phone: Start: 01-12-2025 URINE HOLD CUP Clemente Lynn MD Work Phone: Start: 01-12-2025 Assay of troponin quantitative Amelie Soliz PA-C Work Phone: Start: 01-12-2025 Blood gases any comb ination ph pco2 po2 co2 hco3 Clemente Lynn MD Work Phone: Start: 10-25-2025 Iadna s aureus methi cillin resist amp probe tq Clemente Lynn MD Work Phone: Start: 01-12-2025 Blood gases any comb ination ph pco2 po2 co2 hco3 Freddy Linder MD Work Phone: Start: 01-12-2025 Drug screen analgesi cs non-opioid 1 or 2 Freddy Linder MD Work Phone: Start: 01-12-2025 Procalcitonin (pct) Lucero Lynn MD Work Phone: Start: 01-12-2025 Radiologic exam ches t single view Amelie Soliz PA-C Work Phone: Start: 01-12-2025 Respiratory pathogen s DNA and RNA panel - Nasopharynx by MILANA with non-probe detection Clemente Lynn MD Work Phone: Start: 01-12-2025 SARS-COV-2, FLU A/B, AND RSV COMBO Amelie Soliz PA-C Work Phone: Start: 01-12-2025 Blood gases any comb ination ph pco2 po2 co2 hco3 Freddy Linder MD Work Phone: Start: 01-12-2025 Bacteria identified in Blood by Culture Amelie Soliz PA-C Work Phone: Start: 01-12-2025 Comprehensive metabolic panel Amelie Soliz PA-C Work Phone: Start: 01-12-2025 Drug test def 1-7 classes Amelie Soliz PA-C Work Phone: Start: 01-12-2025 Manual Differential panel - Blood Amelie Soliz PA-C Work Phone: Start: 01-12-2025 Ecg routine ecg w/le ast 12 lds trcg only w/o i&r Amelie Soliz PA-C Work Phone: Start: 09-17-2024 Urine culture Jameson STALLINGS Start: 09-17-2024 Urnls dip stick/tabl et reagent auto microscopy Jameson STALLINGS Start: 08-20-2024 Follow-up visit VANGIE TESFAYE Start: 08-08-2024 Urnls dip stick/tabl et reagent [...] by MILANA with non-probe detection Leann Cross 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 - [employer] Work Phone: Start: 08-01-2024 Smr prim src gram/gi emsa stain bct fungi/cell Leann Cross 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 - [employer] Work Phone: Start: 07-31-2024 Ct abdomen & pelvis w/contrast material Lauren Serna MD Work Phone: Start: 07-31-2024 Respiratory pathogen s DNA and RNA panel - Nasopharynx by MILANA with non-probe detection Lauren Serna MD Work Phone: Start: 07-30-2024 Urnls dip stick/tabl et reagent auto microscopy Luis E Keating DO Work Phone: Start: 07-30-2024 Radiologic exam ches t single view Luis E Zuri DO Work Phone: Start: 07-30-2024 Radex elbow 2 views Vis drake Keating DO Work Phone: Start: 07-30-2024 Basic [...] ches t single view Amelie Cesar Martínez FELIX Work Phone: Start: 08-07-2023 SARS-COV-2, FLU A/B, AND RSV COMBO Amelie Hicksmallory FELIX Work Phone: Start: 08-07-2023 Bacteria identified in Blood by Culture Amelie Cesar Martínez FELIX Work Phone: Start: 08-07-2023 Comprehensive metabolic panel Amelie Cesar Martínez FELIX Work Phone: Start: 08-07-2023 Ecg routine [...] dip stick/tabl et rgnt auto w/o microscopy Dave Whipple DO Work Phone: Start: 11-07-2022 OXYGEN THERAPY Ray Mendez 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 - HEAD OF MARKETING ADOMETRY Work Phone: Start: 11-07-2022 FL GUIDANCE OR USE O NLY - NON-RESULTABLE Andres Ventura MD Work Phone: Start: 11-07-2022 End: 11-07-2022 Prq skel fixj femoral fx prox end neck Andres Ventura MD Work Phone: Start: 11-07-2022 End: 11-07-2022 Basic metabolic panel calcium total Dave Whipple DO Work Phone: Start: 11-06-2022 Ecg routine ecg w/le ast 12 lds trcg only w/o i&r Dave Whipple DO Work Phone: Start: 11-06-2022 Basic metabolic pane l calcium total Austyn Frost Jorge DO Work Phone: Start: 11-06-2022 End: 11-06-2022 Radex ribs unilateral 2 views Austyn Ibarra cassy Mccann DO Work Phone: Start: 10-20-2022 Microscopic observat ion [Identifier] in Cervix by Cyto stain Kisha Pepe 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 - MOTION PICTURE SET GRIP Work Phone: Start: 09-15-2022 Blood count complete auto&auto difrntl wbc Melva Sandoval PABuck Work Phone: Start: 09-15-2022 Lipid panel Bulk Order Provider Start: 09-15-2022 Lipid 1996 panel - S soniya or Plasma Herminia Case MD Work Phone: Start: 05-24-2022 Basic metabolic pane l calcium total Teresa Cedillo MD Work Phone: Start: 05-23-2022 Basic metabolic pane l calcium total Dianne Rekha Dale Work Phone: Start: 05-22-2022 Basic metabolic pane l calcium total Dianne Feldmanheydi Dale Work Phone: Start: 05-21-2022 Ecg routine [...] MD Work Phone: Start: 12-26-2020 Creatinine blood Stepmaxi Menendez MD Work Phone: Start: 10-16-2020 Radex spine lumbosac ral 2/3 views Lauren Lutz 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 - MOTION PICTURE SET GRIP Work Phone: Start: 09-24-2020 Ct thorax w/contrast [...] Phone: Start: 02-21-2020 Assay of magnesium Zion refugio Ferris Shon Work Phone: Start: 02-21-2020 Blood count complete auto&auto difrntl wbc Ziyad Menendez Work Phone: Start: 02-21-2020 Comprehensive metabolic panel Ziyad Menendez Work Phone: Start: 02-07-2020 Blood count complete auto&auto difrntl wbc Ziyad Menendez Work Phone: Start: 02-07-2020 Assay of magnesium Zion refugio Barrington Menendez Work Phone: Start: 02-07-2020 Comprehensive metabolic [...] exam ches t single view Ross K Gladis Work Phone: Start: 12-19-2019 Special treatments a [...] Blood count complete auto&auto difrntl wbc Aparna Jose Angel Work Phone: Start: 11-22-2019 Dup-scan xtr veins [...] head/brain w/o co ntrast material Ray Vaz Lafountain Work Phone: Start: 11-21-2019 Assay [...] Source Comment:Blood Performed By: #### C /BLT [email or web address] [id number] [place] [address] Start: 11-07-2019 H/O: hysterectomy S/P hysterectomy C venkat Rocha 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 - MOTION PICTURE SET GRIP Work Phone: Start: 11-06-2019 H/O: hysterectomy S/P [...] malign ant neoplasm of cervix [facility] Start: 09-16-2027 Lipid 1996 panel - S soniya or Plasma Lipid Screening [facility] Start: 09-16-2027 Lipid panel Lipid Screening [facility] Start: 09-16-2027 LIPID SCREEN LIPID SCREEN [facility] Start: 08-09-2027 Diabetes Screening Diabetes Screenin [facility] Start: 07-31-2027 Diabetes Screening Diabetes Screenin g [facility] Start: 04-27-2027 Diabetes Screening [facility] Start: 09-21-2026 Diabetes Screening Diabetes Screenin [facility] Start: 08-08-2026 DTaP/Tdap/Td vaccine (2 - Td or Tdap) DTaP/Tdap/Td vaccine (2 - Td or Tdap) [facility] Start: 08-08-2026 DTaP/Tdap/Td vaccine (2 - Td) DTaP/Tdap/Td vaccine (2 - Td) [facility] [place] Start: 08-08-2026 DTaP/Tdap/Td Vaccine s (2 - Td or Tdap) DTaP/Tdap/Td Vaccines (2 - Td or Tdap) [facility] Start: 08-08-2026 Urine microalbumin profile [facility] Start: 08-06-2026 Diabetes Screening Diabetes Screenin g [facility] Start: 02-18-2026 Diabetes Screening Diabetes Screenin g [facility] Start: 11-20-2025 Screening for malign ant neoplasm of lung Lung Cancer Screening [facility] Start: 11-08-2025 Diabetes Screening Diabetes Screenminoo baez [facility] Start: 10-20-2025 Screening for malign ant neoplasm of cervix Pap Smear [facility] Start: 09-15-2025 DIABETES SCREEN DIABETES SCREEN [facility] Start: 09-15-2025 Diabetes Screening Diabetes Screenminoo [facility] Start: 07-30-2025 Annual PCP Team Skiing Instructor kyrie Disease Visit Annual PCP Team Chronic Disease Visit [facility] Start: 06-06-2025 Annual PCP Team Skiing Instructor kyrie Disease Visit Annual PCP Team Chronic Disease Visit [facility] Start: 05-02-2025 Annual PCP Team Skiing Instructor kyrie Disease Visit Annual PCP Team Chronic Disease Visit [facility] Start: 04-05-2025 End: 04-05-2025 Patient encounter procedure 04/05/2025 2:30 PM EST Office Visit [facility] Pulmonary and Sleep Medicine [facility] [address] [place] [address] Elyssa Tesfaye, LEONELA [address] [place] [address] [facility] Pulmonary and Sleep Medicine [facility] Start: 04-02-2025 End: 04-02-2025 Patient encounter procedure 04/02/2025 11:30 AM EST Appointment [facility] CT Imaging [address] [place] [phone] Elyssa Tesfaye, LEONELA [address] [place] [address] [facility] CT Imaging Start: 03-30-2025 End: 12-28-2025 CT Chest WO contrast CT chest wo IV contrast Imaging Routine Pulmonary nodule Expected: 03/30/2025, Expires: 12/28/2025 [facility] Work Phone: Comment on above: Expected: 03/30/2025 , Expires: 12/28/2025 Start: 02-25-2025 End: 02-25-2025 Patient encounter procedure 02/25/2025 12:00 PM EST Appointment [facility] Pulm Function Test [address] [place] [phone] Elyssa Tesfaye, LEONELA [address] [place] [address] [facility] Pulm Function Test Start: 02-06-2025 End: 02-06-2025 Patient encounter procedure 02/06/2025 10:40 AM EST Office Visit [facility] Pulmonary and Sleep Medicine [facility] [address] [place] [address] Sofia Marina APRN - MOTION PICTURE SET GRIP [address] [place] [address] [facility] Pulmonary and Sleep Medicine [facility] Start: 12-29-2024 Annual PCP Team Skiing Instructor kyrie Disease Visit Annual PCP Team Chronic Disease Visit [facility] Start: 12-28-2024 End: 12-28-2025 Complete PFT pre and post bronchodilator with FENO Complete PFT pre and post bronchodilator with FENO PFT Routine Centrilobular emphysema (HCC) Expected: 12/28/2024 (Approximate), Expires: 12/28/2025 [facility] Comment on above: Expected: 12/28/2024 (Approximate), Expires: 12/28/2025 Start: 12-04-2024 Subsequent hospital visit by physician 12/04/2024 7:45 AM EDT Hospital Encounter [facility] Pulmonary Function Lab [address] [place] [phone] Elyssa Tesfaye, LEONELA [address] [place] [address] [facility] Pul[facility] Function [facility] Start: 11-26-2024 End: 11-26-2024 Patient encounter procedure 11/26/2024 1:30 PM EDT Office Visit [facility] Pulmonary [facility] Sleep [facility] [address] [place] [address] Elyssa Tesfaye, SUMMER CHILD CAREGIVER [address] [place], [place] [id number] [facility] Pulmonary and Sleep Medicine [facility] Start: 11-20-2024 End: 11-20-2024 Patient encounter procedure 11/20/2024 3:45 PM EDT Appointment [facility] CT [address] [place] [address] Elyssa Tesfaye, LEONELA [address] [place] [address] [facility] [address] Start: 11-20-2024 End: 08-20-2025 CT Chest WO contrast [facility] Work Phone: Comment on above: Expected: 11/20/2024 , Expires: 08/20/2025 Once for 1 Occurrenc es starting 11/20/2024 until 11/20/2024 Start: 2024 COVID-19 Vaccine ( season) COVID-19 Vaccine () [facility] Start: 2024 Influenza vaccination C [facility] Start: 10-24-2024 End: 10-24-2024 Patient encounter procedure 10/24/2024 10:00 AM EDT Appointment [facility] PFT [address] [place] [address] Elyssa Tesfaye, LEONELA [address] [place] [address] [facility] PFT Start: 10-18-2024 End: 10-18-2024 ambulatory 10/18/2024 3:30 PM EDT Infusion [facility] [address] [place] [phone] Ziyad Menendez MD [address] [facility] [address] [place] [address] [facility] Start: 10-15-2024 Screening for malign ant neoplasm of lung Lung Cancer Screening [facility] Start: 10-11-2024 HPV TESTING HPV TESTING [facility] Start: 10-11-2024 PAP TESTING PAP TESTING [facility] Start: 09-24-2024 End: 09-24-2024 Patient encounter procedure 09/24/2024 10:00 AM EDT Office Visit [facility] Gynecologic Oncology - [place] [address] [place] [phone] Shawn OrellanaraDB CNP [address] [place] [address] [facility] Gynecologic Oncology - [place] Start: 09-17-2024 Screening for malign ant neoplasm of cervix [facility] Start: 09-07-2024 Annual PCP Team Skiing Instructor kyrie Disease Visit Annual PCP Team Chronic Disease Visit [facility] Start: 09-04-2024 End: 09-04-2024 ambulatory 09/04/2024 2:30 PM EDT Infusion [facility] [address] [place] [address] [facility] Start: 08-20-2024 End: 08-20-2025 Complete PFT pre and post bronchodilator with FENO Complete PFT pre and post bronchodilator with FENO PFT Routine Chronic obstructive pulmonary disease with acute lower respiratory infection (HCC) Centrilobular emphysema (HCC) Expected: 08/20/2024 (Approximate), Expires: 08/20/2025 [facility] Comment on above: Expected: 08/20/2024 (Approximate), Expires: 08/20/2025 Start: 08-20-2024 End: 08-20-2024 Patient encounter procedure 08/20/2024 10:30 AM EDT Office Visit [facility] Pulmonary and Sleep Medicine [facility] [address] [place] [address] Elyssa Tesfaye NP [address] [place] [address] [facility] Pulmonary and Sleep Medicine [facility] Start: 07-30-2024 End: 07-30-2024 Patient encounter procedure 07/30/2024 3:00 PM EDT Office Visit [facility] [place] [facility] [address] [address] Herminia Case MD [address] [place] [address] back pain [facility] [place] [facility] Comment on above: back pain Start: 06-30-2024 End: 09-29-2024 CBC W Auto Differential panel - Blood COMPLETE BLOOD COUNT AND DIFFERENTIAL Lab Routine Hyperlipidemia, mixed Expected: 06/30/2024 (Approximate), Expires: 09/29/[address] [facility] Comment on above: Expected: 06/30/2024 (Approximate), Expires: 09/29/2024 Start: 06-30-2024 End: 09-29-2024 Hemoglobin A1c in Blood HEMOGLOBIN A1C Lab Routine Hyperglycemia Expected: 06/30/2024 (Approximate), Expires: 09/29/2024 [facility] Work Phone: Comment on above: Expected: 06/30/2024 (Approximate), Expires: 09/29/2024 Start: 06-30-2024 End: 09-29-2024 Hepatic function 2000 panel - Serum or Plasma HEPATIC FUNCTION PNL Lab Routine Hyperlipidemia, mixed Expected: 06/30/2024 (Approximate), Expires: 09/29/[address] [facility] Comment on above: Expected: 06/30/2024 (Approximate), Expires: 09/29/2024 Start: 06-30-2024 End: 09-29-2024 Lipid 1996 panel - Serum or Plasma LIPID PANEL BASIC Lab Routine Hyperlipidemia, mixed Expected: 06/30/2024 (Approximate), Expires: 09/29/[address] [facility] Comment on above: Expected: 06/30/2024 (Approximate), Expires: 09/29/2024 Start: 06-09-2024 Annual PCP Team Skiing Instructor kyrie Disease Visit Annual PCP Team Chronic Disease Visit [facility] Start: 06-06-2024 End: 06-06-2024 ambulatory 06/06/2024 10:20 AM EDT [facility] [place] [address] [address] Hermiina Case MD [address] [place] [address] discuss assisted living/skilled nursing [facility] [place] [facility] Comment on above: discuss assisted raul ing/skilled nursing Start: 05-19-2024 Annual PCP Team Skiing Instructor kyrie Disease Visit Annual PCP Team Chronic Disease Visit [facility] Start: 05-02-2024 Annual PCP Team Skiing Instructor kyrie Disease Visit Annual PCP Team Chronic Disease Visit [facility] Start: 03-22-2024 Depression Monitoring Depression Mon itoring [facility] Start: 03-21-2024 Advance Directive Discussion Advance Directive Discussion [facility] Start: 03-21-2024 Medicare Advantage Annual Wellness Visit Medicare Advantage Annual Wellness Visit [facility] Start: 03-11-2024 Annual PCP Team Skiing Instructor kyrie Disease Visit Annual PCP Team Chronic Disease Visit [facility] Start: 01-15-2024 Annual PCP Team Skiing Instructor kyrie Disease Visit Annual PCP Team Chronic Disease Visit [facility] Start: 12-08-2023 LIPID SCREEN LIPID SCREEN [facility] Start: 11-20-2023 Covid-19 Vaccine ( season) Covid-19 Vaccine ( season) [facility] Start: 11-20-2023 Covid-19 Vaccine ( season) Covid-19 Vaccine ( season) [facility] Start: 11-20-2023 Influenza vaccination C [facility] Start: 09-18-2023 Influenza vaccination Influenza Vacc ine (#1) [facility] Comment on above: Postponed from 11/19 (Declined at this time) Start: 09-16-2023 ANNUAL PCP TEAM CENTER HOLE REAMER KYRIE DISEASE VISIT ANNUAL PCP TEAM CHRONIC DISEASE VISIT [facility] Start: 09-16-2023 Zoledronic acid therapy ALPHA- 1 ANTITRYPSIN DEFICIENCY SCREENING [facility] Comment on above: Postponed from 11/19 (Declined at this time) Start: 09-13-2023 DIABETES SCREEN DIABETES SCREEN [facility] Start: 09-08-2023 End: 09-08-2023 Patient encounter procedure 09/08/2023 3:20 PM EDT Office Visit [facility] [place] [address] [address] Barbi Goldberg MD [address] [place] [address] [facility] Comment on above: [facility] Start: 08-24-2023 End: 08-24-2023 Follow-up encounter 08/24/2023 3:00 PM EDT [facility] [address] [address] Melva Juárez PABuck [address] [place] [address] Follow up visit [facility] Comment on above: Follow up visit Start: 08-16-2023 End: 08-16-2023 Patient encounter procedure 08/16/2023 10:00 AM EDT Office Visit [address] [address] Herminia Case MD [address] [place] [address] sick [facility] Comment on above: sick Start: 08-03-2023 End: 08-03-2023 Follow-up encounter 08/03/2023 11:20 AM EDT [facility] [address] [address] Herminia Case MD [address] [place] [address] Follow up [facility] Comment on above: Follow up Start: 07-22-2023 End: 07-22-2023 Follow-up encounter 07/22/2023 1:00 PM EDT [facility] [address] [address] Herminia Case MD [address] [place] [address] 6 week follow up-anxiety and depression [facility] Comment on above: 6 week follow up-anx iety and depression Start: 07-05-2023 End: 10-04-2023 Lipid 1996 panel - Serum or Plasma LIPID PANEL BASIC Lab Routine Medication management Expected: 07/05/2023, Expires: 10/04/2023 [facility] Work Phone: Comment on above: Expected: 07/05/2023 , Expires: 10/04/2023 Start: 06-04-2023 ANNUAL PCP TEAM CENTER HOLE REAMER KYRIE DISEASE VISIT ANNUAL PCP TEAM CHRONIC DISEASE VISIT [facility] Start: 06-04-2023 COVID-19 VACCINE (#1) COVID-19 VACCI NE (#1) [facility] Comment on above: Postponed from 05/19 (Declined at this time) Start: 06-04-2023 SHINGRIX VACCINE (2 of 2) SHINGRIX VACCINE (2 of 2) [facility] Comment on above: Postponed from 12/05 (Declined at this time) Start: 05-02-2023 End: 08-01-2023 PAIN PANEL, UR QUANT [facility] Work Phone: Comment on above: Expected: 05/02/2023 , Expires: 08/01/2023 Start: 04-22-2023 End: 04-22-2023 Patient encounter procedure [facility] Gynecologic Oncology Start: 03-21-2023 Advance Directive Discussion Advance Directive Discussion [facility] Start: 03-21-2023 Medicare Advantage Annual Wellness Visit Medicare Advantage Annual Wellness Visit [facility] Start: 03-09-2023 End: 03-09-2023 Patient encounter procedure 03/09/2023 11:15 AM EST Office Visit [facility] Pulmonary Care [address] [place] [address] Freddy Person MD [address] [address] [facility] Pulmonary Care Start: 03-05-2023 ANNUAL PCP TEAM CENTER HOLE REAMER KYRIE DISEASE VISIT ANNUAL PCP TEAM CHRONIC DISEASE VISIT [facility] Start: 11-20-2022 ANNUAL PCP TEAM CENTER HOLE REAMER KYRIE DISEASE VISIT ANNUAL PCP TEAM CHRONIC DISEASE VISIT [facility] Start: 2022 Covid-19 Vaccine () Covid-19 Vaccine () [facility] Start: 2022 [facility] Start: 11-17-2022 End: 11-17-2022 Patient encounter procedure 11/17/2022 9:00 AM EDT Office Visit [facility] Pulmonary Care [address] [place] [address] Nabeel Tran MD [address] [place] [address] [facility] Pul[facility] Start: 11-10-2022 End: 11-10-2022 Patient encounter procedure 11/10/2022 3:30 PM EDT Appointment [facility] CT Imaging [address] [place] [address] Kisha Pepe APRN - MOTION PICTURE SET GRIP [address] [facility] [address] [place] [address] [facility] CT Imaging Start: 10-27-2022 End: 10-27-2022 Patient encounter procedure 10/27/2022 10:40 AM EDT Office Visit [facility] Pulmonary Care [address] [place] [address] Nabeel Tran MD [address] [place] [address] [facility] Pulmonary Care Start: 10-24-2022 Screening for malign ant neoplasm of cervix Cervical cancer screen [place], [place] Start: 10-20-2022 End: 10-21-2023 CT Chest WO contrast CT chest wo IV contrast Imaging Routine Malignant neoplasm of exocervix (HCC) Expected: 10/20/2022, Expires: 10/21/2023 [facility] Work Phone: Comment on above: Expected: 10/20/2022 , Expires: 10/21/2023 Start: 10-20-2022 End: 12-21-2023 DBT Breast - bilateral screening Bilateral screening mammogram with tomosynthesis Imaging Routine Encounter for screening mammogram for malignant neoplasm of breast Expected: 10/20/2022, Expires: 12/21/2023 [facility] Comment on above: Expected: 10/20/2022 , Expires: 12/21/2023 Start: 10-20-2022 End: 10-20-2022 Patient encounter procedure 10/20/2022 Office Visit Gynecologic Oncology AfshinKisha garcía APRN - [facility] [address] [facility] [place] [address] [facility] INSTRUMENT REPAIR SUPERVISOR Oncology Start: 10-14-2022 Influenza vaccination LUNG CANCER SC REENING [facility] Start: 10-14-2022 Screening for malign ant neoplasm of lung Lung Cancer Screening [facility] Start: 09-17-2022 Influenza vaccination INFLUENZA (#1) [facility] Comment on above: Postponed from 11/19 (Declined at this time) Start: 08-17-2022 End: 10-17-2022 Lipid 1996 panel - Serum or Plasma LIPID PANEL BASIC Lab Routine Medication management Expected: 08/17/2022, Expires: 10/17/2022 [facility] Work Phone: Comment on above: Expected: 08/17/2022 , Expires: 10/17/2022 Start: 08-06-2022 ANNUAL PCP TEAM CENTER HOLE REAMER KYRIE DISEASE VISIT ANNUAL PCP TEAM CHRONIC DISEASE VISIT [facility] Start: 05-06-2022 ANNUAL PCP TEAM CENTER HOLE REAMER KYRIE DISEASE VISIT ANNUAL PCP TEAM CHRONIC DISEASE VISIT [facility] Start: 03-21-2022 ADVANCE DIRECTIVE DISCUSSION ADVANCE DIRECTIVE DISCUSSION [facility] Start: 03-17-2022 End: 03-17-2022 Patient encounter procedure 03/17/2022 Office Visit Gynecologic Oncology Ziyad Menendez MD [address] [facility] [address] [facility] [place] [address] [facility] [place] INSTRUMENT REPAIR SUPERVISOR Oncology Start: 03-11-2022 Pneumococcal 0-64 ye ars Vaccine (2 of 2 - PPSV23) Pneumococcal 0-64 years Vaccine (2 of 2 - PPSV23) [facility] Work Phone: Start: 03-11-2022 Pneumococcal 0-64 ye ars Vaccine (2 of 4 - PPSV23) Pneumococcal 0-64 years Vaccine (2 of 4 - PPSV23) [facility] Work Phone: Start: 02-16-2022 End: 04-18-2022 CBC panel - Blood by Automated count CBC Lab Routine Medication management Expected: 02/16/2022, Expires: 04/18/2022 [facility] Work Phone: Comment on above: Expected: 02/16/2022 , Expires: 04/18/2022 Start: 02-16-2022 End: 04-18-2022 SCHEDULE LAB TESTING SCHEDULE LAB TESTING Lab Routine Expected: 02/16/2022, Expires: 04/18/2022 [facility] Work Phone: Comment on above: Expected: 02/16/2022 , Expires: 04/18/2022 Start: 12-26-2021 Influenza vaccination LUNG CANCER SC REENING [facility] Start: 12-09-2021 End: 12-09-2021 Patient encounter procedure 12/09/2021 Appointment Infusion Therapy [facility] Start: 2021 ADVANCE DIRECTIVE DISCUSSION ADVANCE DIRECTIVE DISCUSSION [facility] Start: 2021 BONE DENSITY BONE DENSITY [facility] Start: 2021 Bone Density Screening Bone Density Screening [facility] Start: 2021 [facility] Start: 2021 Screening for osteoporosis Bone Density Screening [facility] Start: 10-27-2021 End: 12-27-2021 CBC panel - Blood by Automated count CBC Lab Routine Medication management Expected: 10/27/2021, Expires: 12/27/2021 [facility] Work Phone: Comment on above: Expected: 10/27/2021 , Expires: 12/27/2021 Start: 10-27-2021 End: 12-27-2021 SCHEDULE LAB TESTING SCHEDULE LAB TESTING Lab Routine Expected: 10/27/2021, Expires: 12/27/2021 [facility] Work Phone: Comment on above: Expected: 10/27/2021 , Expires: 12/27/2021 Start: 09-24-2021 Screening for malign ant neoplasm of lung Low dose CT lung screening [facility] Work Phone: Start: 09-15-2021 COLORECTAL CANCER SCREENING COLORECTAL CANCER SCREENING [facility] Comment on above: Postponed from 11/19 (Declined at this time) Start: 09-15-2021 COVID-19 VACCINE (#1) COVID-19 VACCI NE (#1) [facility] Comment on above: Postponed from 11/19 (Declined at this time) Start: 09-15-2021 COVID-19 VACCINE (1) COVID-19 VACCIN E (1) [facility] Comment on above: Postponed from 11/19 (Declined at this time) Start: 09-15-2021 SHINGRIX VACCINE (2 of 2) SHINGRIX VACCINE (2 of 2) [facility] Comment on above: Postponed from 12/05 (Declined at this time) Start: 08-06-2021 End: 10-06-2021 CBC W Auto Differential panel - Blood CBC + DIFF Lab Routine Panlobular emphysema (HCC) Chronic respiratory failure with hypoxia (HCC) Expected: 08/06/2021, Expires: 10/06/2021 [facility] Work Phone: Comment on above: Expected: 08/06/2021 , Expires: 10/06/2021 Start: 08-06-2021 End: 10-06-2021 Comprehensive metabolic 2000 panel - Serum or Plasma COMP METABOLIC PANEL Lab Routine Panlobular emphysema (HCC) Chronic respiratory failure with hypoxia (HCC) Expected: 08/06/2021, Expires: 10/06/2021 [facility] Work Phone: Comment on above: Expected: 08/06/2021 , Expires: 10/06/2021 Start: 08-06-2021 End: 10-06-2021 LIPID PANEL BASIC LIPID PANEL BASIC Lab Routine Screening for lipid disorders Expected: 08/06/2021, Expires: 10/06/2021 [facility] Work Phone: Comment on above: Expected: 08/06/2021 , Expires: 10/06/2021 Start: 08-06-2021 End: 10-06-2021 PAIN PANEL, UR QUANT PAIN PANEL, UR QUANT Lab Routine Medication monitoring encounter Expected: 08/06/2021, Expires: 10/06/2021 [facility] Work Phone: Comment on above: Expected: 08/06/2021 , Expires: 10/06/2021 Start: 08-06-2021 End: 10-06-2021 VITAMIN D 25 HYDROXY VITAMIN D 25 HYDROXY Lab Routine Vitamin D deficiency Expected: 08/06/2021, Expires: 10/06/2021 [facility] Work Phone: Comment on above: Expected: 08/06/2021 , Expires: 10/06/2021 Start: 06-06-2021 Screening for malign ant neoplasm of lung Low dose CT lung screening [facility] Work Phone: Start: 02-06-2021 End: 02-06-2021 Patient encounter procedure 02/06/2021 Appointment Infusion Therapy [facility] Start: 11-23-2020 Statin Therapy Statin Therapy [place] Start: 11-21-2020 Lipid panel [facility] Start: 2020 Influenza vaccination Flu vaccine (# 1) [facility] Work Phone: Start: 10-13-2020 End: 10-13-2020 Office Visit [facility] [place] INSTRUMENT REPAIR SUPERVISOR Oncology Start: 08-08-2020 End: 08-08-2020 Appointment 08/08/2020 Appointment Infusion Therapy [facility] Start: 07-01-2020 End: 07-01-2020 Telemedicine 07/01/2020 Telemedicine Cardiology Nell Padilla MD [address] [place] [address] [place] [address] [phone] [facility] Start: 06-13-2020 End: 06-13-2020 Appointment 06/13/2020 Appointment Infusion Therapy [facility] Start: 06-09-2020 End: 06-09-2020 Office Visit 06/09/2020 Office Visit Gynecologic Oncology Ziyad Menendez MD [address] [place] [address], [address] [place], [place] [id number] [facility] [place] [employer]UMENT REPAIR SUPERVISOR Oncology Start: 04-15-2020 Lipid panel Lipid screen [facility] [place] Start: 03-28-2020 End: 03-28-2020 Virtual Visit 03/28/2020 Virtual Visit Palliative Care David Pollack, DO [address] [facility] [place] [address] [phone] [facility] Start: 03-17-2020 End: 03-17-2020 Office Visit [facility] INSTRUMENT REPAIR SUPERVISOR Oncology Comment on above: 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) Start: 03-10-2020 End: 03-10-2020 Appointment 03/10/[address] [address] Scan Start: 02-22-2020 End: 02-22-2020 Appointment [facility] Start: 02-21-2020 End: 02-21-2020 Office Visit [facility] [place] INSTRUMENT REPAIR SUPERVISOR Oncology Start: 02-08-2020 End: 02-08-2020 Appointment [facility] [...] Oncology Ziyad Menendez MD [address], [address] [place], [place] [phone] [facility] [place] INSTRUMENT REPAIR SUPERVISOR Oncology Start: 12-07-2019 End: 12-07-2019 Office Visit 12/07/2019 Office Visit Gynecologic Oncology Ziyad Menendez MD [address], [address] [place] [address] [phone] [facility] [place] INSTRUMENT REPAIR SUPERVISOR Oncology Start: 12-06-2019 Shingles Vaccine (2 of 2) Shingles Vaccine (2 of 2) [facility] Start: 12-06-2019 SHINGRIX VACCINE (2 of 2) SHINGRIX VACCINE (2 of 2) [facility] Start: 12-06-2019 Zoster Vaccines (2 of 2) Zoster Vacc otto (2 of 2) [facility] Start: 11-22-2019 End: 11-22-2019 Office Visit 11/22/2019 Office Visit Gynecologic Oncology Ziyad Menendez MD [address] [place], [place] [phone] [facility] INSTRUMENT REPAIR SUPERVISOR Oncology Start: 11-20-2019 [facility] Start: 11-09-2019 End: 11-08-2020 US Lower Extremity Venous Right US Lower Extremity Venous Right Imaging Routine Leg swelling Expected: 11/09/2019, Expires: 11/08/2020 [place] Comment on above: Expected: 11/09/2019 , Expires: 11/08/2020 Start: 11-06-2019 End: 11-06-2019 Appointment [facility] Start: 10-30-2019 End: 10-30-2019 Appointment 10/30/2019 Appointment Pre-Admission Testing Ziyad Menendez MD [address] [place], [place] [id number] [facility] Pre-Admit [facility] Start: 10-25-2019 Annual Wellness Visi t (AWV) Annual Wellness Visit (AWV) [facility] Start: 10-25-2019 End: 10-25-2019 Office Visit 10/25/2019 Office Visit Gynecologic Oncology Ziyad Menendez MD [address] [place] [phone] [facility] [place] INSTRUMENT REPAIR SUPERVISOR Oncology Start: 10-18-2019 Screening for malign ant neoplasm of lung Low dose CT lung screening [place] Start: 08-27-2019 Screening for malign ant neoplasm of breast Breast cancer screen [facility] Start: 12-10-2018 Screening for osteoporosis Bone Density Scan [facility] Start: 08-26-2018 Screening for malign ant neoplasm of breast [facility] Start: 03-11-2018 PNEUMOCOCCAL (2 - PCV) PNEUMOCOCCAL (2 - PCV) [facility] Start: 03-11-2018 Pneumococcal 0-64 ye ars Vaccine (2 - PCV) Pneumococcal 0-64 years Vaccine (2 - PCV) [facility] Start: 03-11-2018 Pneumococcal Vaccine : 50+ Years (2 of 2 - PCV) Pneumococcal Vaccine: 50+ Years (2 of 2 - PCV) [facility] Start: 03-11-2018 Pneumococcal Vaccine : 65+ (2 - PCV) Pneumococcal Vaccine: 65+ (2 - PCV) [facility] Start: 03-11-2018 Pneumococcal Vaccine : 65+ Years (2 - PCV) Pneumococcal Vaccine: 65+ Years (2 - PCV) [facility] Start: 03-11-2018 Pneumococcal Vaccine : 65+ Years (2 of 2 - PCV) Pneumococcal Vaccine: 65+ Years (2 of 2 - PCV) [facility] Start: 03-11-2018 PNEUMOCOCCAL: 65+ (2 - PCV) PNEUMOCOCCAL: 65+ (2 - PCV) [facility] Start: 2016 RSV Immunization age d 60 or older (1 - 1-dose 60+ series) RSV Immunization aged 60 or older (1 - 1-dose 60+ series) [facility] Start: 2016 RSV Immunization for Adults (1 - Risk 60-74 years 1-dose series) RSV Immunization for Adults (1 - Risk 60-74 years 1-dose series) [facility] Start: 2016 RSV Vaccine (1 - 1-d ose 60+ series) RSV Vaccine (1 - 1-dose 60+ series) [facility] Start: 2016 RSV Vaccine (1 - Ris k 60-74 years 1-dose series) RSV Vaccine (1 - Risk 60-74 years 1-dose series) [facility] Start: 04-15-2016 Lipid panel Lipid screen [place], [place] Start: 2006 Screening for malign ant neoplasm of colon Colon cancer screen colonoscopy [place] Start: 2006 Screening for malign ant neoplasm of lung Low dose CT lung screening [facility] Start: 2006 Shingles Vaccine (1 of 2) Shingles Vaccine (1 of 2) [place] Start: 2001 COLOGUARD (FIT-DNA) COLOGUARD (FIT-D NA) [facility] Start: 2001 Colonoscopy COLONOSCOPY [facility] Start: 2001 COLORECTAL CANCER SCREENING COLORECTAL CANCER SCREENING [facility] Start: [address] COLONOGRAPHY [facility] Start: 2001 FECAL OCCULT BLOOD FECAL OCCULT BLOO D [facility] Start: 2001 Screening for malign ant neoplasm of colon [facility] Start: 2001 SIGMOIDOSCOPY SIGMOIDOSCOPY [facility] Start: [address] [facility] Start: 1996 Screening for malign ant neoplasm of breast [facility] Start: 1986 Screening for malign ant neoplasm of cervix [facility] Start: 1986 Zoledronic acid therapy ALPHA- 1 ANTITRYPSIN DEFICIENCY SCREENING [facility] Start: 1977 Screening for malign ant neoplasm of cervix [place] Start: 1974 Hepatitis C screening Hepatitis C Sc reening [facility] Start: 1972 COVID-19 Vaccine (1) COVID-19 Vaccin e (1) [facility] Work Phone: Start: 1968 COVID-19 Vaccine (1) COVID-19 Vaccin e (1) [facility] Work Phone: Start: 1968 Depression Monitoring Depression Mon itoring [facility] Start: 1968 Depresssion Monitoring Depresssion M onitoring [facility] Start: 1961 COVID-19 Vaccine (#1) COVID-19 Vacci ne (#1) [facility] Start: 05-19-1957 COVID-19 VACCINE (#1) COVID-19 VACCI NE (#1) [facility] Start: 1956 Annual wellness visit Medicare Initial Physical (IPPE) [facility] Start: 1956 Annual Wellness Visi t (AWV) Annual Wellness Visit (AWV) [facility] Start: 1956 Hepatitis B Vaccines (1 of 3 - 3-dose series) Hepatitis B Vaccines (1 of 3 - 3-dose series) [facility] [employer] Start: 1956 Medicare Advantage Annual Wellness Visit (AWV) Medicare Advantage Annual Wellness Visit (AWV) [facility] Start: 1956 Screening for malign ant neoplasm of colon [facility] Start: 1956 Screening for osteoporosis Bone Density Scan [facility] [employer] Bacteria identified in Blood by Culture [facility] [employer] [facility] Work Phone: Basic metabolic 2000 panel Basic Metabolic Panel Lab Routine Daily until discontinued starting 08/04/2019, 1 completed [employer] [facility] Comment on above: Daily until disconti nued starting 08/04/2019, 1 completed Basic Metabolic Pane l w/ Reflex to MG Basic Metabolic Panel w/ Reflex to MG Lab Routine Daily until discontinued starting 11/23/2019, 2 completed [employer] Comment on above: Daily until disconti nued starting 11/23/2019, 2 completed CBC [facility] Comment on above: Daily until disconti nued starting 08/04/2019, 1 completed Daily until disconti nued starting 11/23/2019, 2 completed End: 02-01-2020 CBC Auto Differential CBC Auto Differential Lab Routine Malignant neoplasm of exocervix (HCC) 1 Occurrences starting 02/01/2020 until 02/01/2020 [facility]: 1 Occurrences starti ng 02/01/2020 until 02/01/2020 COLOGUARD COLOGUARD Lab Ro utine Screening for colon cancer Ordered: 09/15/2022 [facility] Work Phone: Comment on above: Ordered: 09/15/2022 End: 02-01-2020 Comprehensive metabolic 2000 panel Comprehensive Metabolic Panel Lab Routine Malignant neoplasm of exocervix (HCC) 1 Occurrences starting 02/01/2020 until 02/01/2020 [facility] Comment on above: 1 Occurrences starti ng 02/01/2020 until 02/01/2020 End: 03-16-2020 COVID-19 COVID-19 Lab STAT One Time for 1 Occurrences starting 03/16/2020 until 03/16/2020 [facility] Comment on above: One Time for 1 Occur rences starting 03/16/2020 until 03/16/2020 COVID-19 COVID-19 Lab STA T 03/16/2020 1:18 PM [place], [place] End: 06-09-2020 Creatinine [Mass/Vol] Creatinine, Serum [...] study 1 Occurrences starting 03/10/2020 until 03/10/2020 [place] Comment on above: 1 Occurrences starti ng 03/10/2020 until 03/10/2020 CT CHEST ABDOMEN PEL VIS W CONTRAST CT CHEST ABDOMEN PELVIS W CONTRAST Imaging Routine Malignant neoplasm of exocervix (HCC) Lung nodule seen on imaging study 03/10/2020 1:23 PM [place], [place] End: 06-06-2020 CT Chest W Contrast [...] starting 10/14/2021 until 10/14/2021 Culture, Blood 1 [place], [place] End: 03-16-2020 Culture, Blood 1 Culture, Blood 1 Microbiology STAT One Time for 1 Occurrences starting 03/16/2020 until 03/16/2020 [place] Comment on above: One Time for 1 Occur rences starting 03/16/2020 until 03/16/2020 Culture, Blood 2 [place], [place] End: 03-16-2020 Culture, Blood 2 Culture, Blood 2 Microbiology STAT One Time for 1 Occurrences starting 03/16/2020 until 03/16/2020 [place] Comment on above: One Time for 1 Occur rences starting 03/16/2020 until 03/16/2020 Culture, Respiratory Culture, Re spiratory Microbiology Routine 08/02/2019 11:55 PM EDT [place] Cytology Cervical or vaginal smear or scraping study Pap Smear Pathology and Cytology Routine Malignant neoplasm of exocervix (HCC) 10/20/2022 2:32 PM EDT [email or web address] End: 06-21-2025 DBT Breast - bilateral screening PAOLO SCREENING W CARON Radiology Routine Encounter for screening mammogram for breast cancer 1 Occurrences starting 05/22/2024 until 06/21/2025 [facility] Work Phone: Comment on above: 1 Occurrences starti ng 05/22/2024 until 06/21/2025 ECG 12 lead ECG 12 lead CV E CG STAT 05/21/2022 5:47 AM [facility] Work Phone: ECG 12 lead ECG 12 lead CV E CG STAT 04/27/2024 11:57 PM [facility] Work Phone: EKG 12 Lead - Chest Pain [place] End: 08-04-2019 Home O2 eval (desaturation screen) Home O2 eval (desaturation screen) Respiratory Care Routine One Time for 1 Occurrences starting 08/04/2019 until 08/04/2019 [place] Comment on above: One Time for 1 Occur rences starting 08/04/2019 until 08/04/2019 HPV High Risk PCR HPV High Risk PCR Microbiology Routine Malignant neoplasm of exocervix (HCC) 10/20/2022 2:32 PM EDT [email or web address] End: 02-01-2020 Magnesium [Mass/Vol] Magnesium Lab Routine Malignant neoplasm of exocervix (HCC) 1 Occurrences starting 02/01/2020 until 02/01/2020 [place] Comment on above: 1 Occurrences starti ng 02/01/2020 until 02/01/2020 End: 08-13-2023 PAOLO SCREENING PAOLO SCREENING Radiology Routine Encounter for screening mammogram for breast cancer 1 Occurrences starting 07/14/2022 until 08/13/2023 [facility] Work Phone: Comment on above: 1 Occurrences starti ng 07/14/2022 until 08/13/2023 End: 09-05-2022 PAOLO SCREENING W CARON PAOLO SCREENING W CARON Radiology Routine Encounter for screening mammogram for malignant neoplasm of breast 1 Occurrences starting 08/06/2021 until 09/05/2022 [facility] Work Phone: Comment on above: 1 Occurrences starti ng 08/06/2021 until 09/05/2022 MDI Treatment MDI Treatment Respiratory Care Routine Every 6hr As Needed until discontinued starting 08/02/2019 [facility] on above: Every 6hr As Needed until discontinued starting 08/02/2019 End: 07-21-2024 MG Breast Screening PAOLO SCREENING Radiology Routine Encounter for screening mammogram for breast cancer 1 Occurrences starting 06/22/2023 until 07/21/2024 [facility] Work Phone: Comment on above: 1 Occurrences starti ng 06/22/2023 until 07/21/2024 Nebulizer therapy HHN Treatment Respiratory Care Routine 0600, 1000, 1400, 1800, 2200 until discontinued starting 03/16/2020, 6 completed [facility] Comment on above: 0600, 1000, 1400, 18 00, 2200 until discontinued starting 03/16/2020, 6 completed Oxygen therapy [[facility] Data Set] [facility] Comment on above: Daily until disconti nued starting 11/21/2019, 2 completed Daily until disconti nued starting 11/21/2019 PAIN PANEL, UR QUANT PAIN PANEL, UR QUANT Lab Routine Medication monitoring encounter 05/02/2023 3:12 PM EST [facility] Work Phone: End: 08-02-2019 Respiratory Virus PCR Panel Respiratory Virus PCR Panel Microbiology Add-On One Time for 1 Occurrences starting 08/02/2019 until 08/02/2019 [place] Comment on above: One Time for 1 Occur rences starting 08/02/2019 until 08/02/2019 SPECIMEN VALIDITY, URINE SPECIME N VALIDITY, URINE Lab Routine Medication monitoring encounter 05/02/2023 3:12 PM EST [facility] Work Phone: End: 06-09-2020 Urea nitrogen [Mass/Vol] BUN Lab Routine Malignant neoplasm of exocervix (HCC) 1 Occurrences starting 06/09/2020 until 06/09/2020 [facility] Work Phone: Comment on above: 1 Occurrences starti ng 06/09/2020 until 06/09/2020 End: 10-27-2019 Urinalysis Urinalysis Lab STAT One Time for 1 Occurrences starting 10/27/2019 until 10/27/2019 [place] Comment on above: One Time for 1 Occur rences starting 10/27/2019 until 10/27/2019 End: 11-10-2019 US Lower Extremity Venous Right US Lower Extremity Venous Right Imaging Routine Leg swelling 1 Occurrences starting 11/10/2019 until 11/10/2019 [place] Comment on above: 1 Occurrences starti ng 11/10/2019 until 11/10/2019 US Lower Extremity Venous Right US Lower Extremity Venous Right Imaging Routine Leg swelling 11/10/2019 6:00 PM EDT [facility] Immunizations Immunization Date Immunization Notes Care Provider [facility] 01-12-2025 influenza vaccine A& B surf ant adjuvanted (Fluad) HIGH-DOSE injection 0.5 mL Freddy Linder MD Work Phone: [facility] 01-14-2023 pneumococcal Conjuga te, unspecified formulation Herminia Case MD Work Phone: [facility] Work Phone: 01-14-2023 pneumococcal (PCV20) vaccine, 20 valent (PREVNAR 20) Herminia Case MD Work Phone: [facility] 10-11-2019 zoster vaccine recombinant Melva Horsham PA-C Work Phone: [facility] 12-07-2018 influenza, injectabl e, quadrivalent, contains preservative Melva Ladonna PA-C Work Phone: [facility] 12-07-2018 influenza virus vaccine, unspecified formulation Kisha Afshin 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 Work Phone: [facility] 01-10-2018 influenza nasal, unspecified formulation Herminia Case MD Work Phone: [facility] 01-10-2018 influenza virus vaccine, unspecified formulation Joanie Alex [facility] 01-10-2018 influenza, seasonal, injectable Melva Horsham PA-C Work Phone: [facility] 03-11-2017 pneumococcal polysaccharide vaccine, 23 valent Melva Horsham PA-C Work Phone: [facility] Work Phone: 02-15-2017 influenza, injectabl e, quadrivalent, preservative free Melva Ladonna PA-C Work Phone: [facility] 08-08-2016 tetanus toxoid, redu manjula diphtheria toxoid, and acellular pertussis vaccine, adsorbed Joanie Alex [facility] Work Phone: 02-10-2013 influenza, seasonal, injectable, preservative free Melva Ladonna PA-C Work Phone: [facility] 02-15-2012 influenza, seasonal, injectable, preservative free Melva Horsham PA-C Work Phone: [facility] NEGATED: Highlighted row has not occurred!05-22-2022 Influenza,seasonal,sout radha Hemisphere,quad,preserv Free Martha Flores MD Work Phone: [facility] Comment on above: Deferred: Patient Re fused Payers Date Payer Category Payer Self-pay 2022 Medicare (Managed Care) [facility] DUAL COMPLETE HMO POS SNP Member Subscriber Plan / Payer (Effective 2022-Present) Name: Gonzalo Deluca Relation to Subscriber: Self Name: Gonzalo Deluca Payer ID: [id number] (NAIC) Group ID: [id number] Type: Medicare Address: [address] [place] [id number] 2022 Medicare HMO U[employer] DUAL COMPLET E [id number] 2022 Unknown [id number] 2021 Medicare HUMANA MEDICARE HUMANA GOLD PLUS [id number] 2021-Present [phone] [place] [id number] [facility] [place] [id number] 2021 Medicare HUMANA MEDICARE HUMANA GOLD PLUS O [id number] 2021-Present [phone] [address] [address] [place] [address] [id number] 2019 Medicaid [id number] 2019 Medicaid [id number] 2019 Medicare MEDICARE MEDICAR E PART A AND B [id number] 2019-Present [phone] [address] [address] [place] [address] [id number] 2019 Medicare [id number] 2014 Unknown [facility] xxxxxxxxxxxx 2014-Present [phone] [address] [place] [address] xxxxxxxxxxxx [id number] 2014 Unknown [id number] 1956 Unknown [id number] 1956 Unknown [id number] 1956 Unknown [id number] 1956 Unknown [id number] 1956 Unknown [id number] Private Health Insurance Unknown [id number] Unknown [id number] Unknown [id number] Unknown [id number] Unknown [id number] Unknown [id number] Unknown [id number] Social History Date Type Detail Facility Start: 08-02-2019 End: 01-15-2025 Tobacco smoking status NHIS Former smoker [facility] Start: 1970 End: 11-20-2019 History of tobacco use Current smoker [place], [place] Start: 1970 End: 11-20-2019 History of tobacco use Cigarette [place] Start: 08-02-2019 End: 01-12-2025 Cigarettes smoked current (pack per day) - Reported [facility] Start: 08-02-2019 End: 10-20-2020 Alcohol intake Current drinker of alcohol (finding) [place] Start: 10-19-2017 Alcohol Comment very rarely [place] Start: 1955 Sex Assigned At Not on file [place] Exposure to SARS-CoV -2 (event) Unable to assess [place] Start: 10-21-2019 End: 01-15-2025 Tobacco use and exposure Never used [place] Start: 07-27-2021 End: 11-06-2022 Exposure to SARS-CoV-2 (event) Not sure [place] Start: 11-05-2019 Alcohol Comment 1-2 times/yr [place] Start: 11-21-2019 Tobacco Comment pt states she quit 4-5 years ago [place] Start: 11-28-2020 End: 12-30-2023 Alcohol intake Current non-drinker of alcohol (finding) [facility] Start: 05-06-2021 End: 05-21-2022 History SDOH Alcohol Frequency [address] [facility] Start: 05-06-2021 End: 05-21-2022 History SDOH Alcohol Std Drinks [address] [facility] Start: 05-06-2021 History SDOH Social Connections Phone [address] [facility] Start: 05-06-2021 End: 03-05-2022 History SDOH Social Connections Get Together [address] [facility] Start: 05-06-2021 End: 03-05-2022 History SDOH Social Connections Meetings [address] [facility] Start: 05-06-2021 End: 03-05-2022 History SDOH Social Connections Living [address] [facility] Start: 05-06-2021 End: 05-21-2022 History SDOH Physical Activity DPW [address] [facility] Start: 07-11-2018 End: 09-15-2022 Tobacco Comment vaping intermittently [facility] Start: 03-05-2022 End: 01-12-2025 Social connection and isolation panel [facility] Do you belong to any clubs or organizations such as confucianism groups, [employer], fraternal or athletic groups, or school groups? No [facility] How often do you att end meetings of the clubs or organizations you belong to? Patient refused [facility] Are you now , , , , never or living with a partner? [facility] How often to you hav e a drink containing alcohol? Never [facility] How hard is it for y ou to pay for the very basics like food, housing, medical care, and heating Not very hard [facility] Do you feel stress - tense, restless, nervous, or anxious, or unable to sleep at night because your mind is troubled all the time - these days [OSQ] To some extent [facility] (I/We) worried jeannie er (my/our) food would run out before (I/we) got money to buy more. Never true [facility] The food that (I/we) bought just didn't last, and (I/we) didn't have money to get more. DK or Refused [facility] Start: 04-26-2021 Gender identity Identifies as female gender (finding) [facility] Start: 04-26-2021 Sexual orientation Heterosexual (finding) [facility] Start: 05-21-2022 End: 01-20-2025 Alcohol intake Ex-drinker (finding) [facility] Start: 05-21-2022 Alcohol Comment Approx once a year [facility] Are you now , , , , never or living with a partner? [facility] Do you feel stress - tense, restless, nervous, or anxious, or unable to sleep at night because your mind is troubled all the time - these days [OSQ] Only a little [facility] Start: 10-19-2021 Sex Female (finding) [facility] History of tobacco use Passive smoker [facility] How often do you nee d to have someone help you when you read instructions, pamphlets, or other written material from your doctor or pharmacy [SILS] Rarely [facility] Tobacco smoking stat us FLIS Unknown if ever smoked [facility] Work Phone: Start: 1955 Sex Assigned At Female [facility] Start: 01-15-2025 Tobacco Comment Started at 15, 0.5 PPD, increased to 2.5 PPD at 31, quit smoking cigarettes in 2019 and started vaping, uses a rechargeable vape, the amount she vapes per day depends on whether she is a home or in rehab. 01/15/2025 [facility] Medical Equipment Procedure Code Equipment Code Equipment Origin al Text Equipment Identifier Dates [employer]-12/19/2019 [id number] Start: 12-19-2019 Comment on above: Description: [employer] Left Chest Regular Size. Screw Josie 7.3x85mm 16mm-Thrd - [id number] Start: 11-07-2022 Screw Josie 7.3x85mm 16mm-Thrd - [id number] Start: 11-07-2022 Functional Status Date Assessment Result Facility 06-06-2024 Total score [AUDIT-C] 0 06/07/19 25 9:46 AM EDT UserNa [facility] 06-06-2024 Within the last year , have you been humiliated or emotionally abused in other ways by your partner or ex-partner? No 06/06/2024 9:46 AM EDT User, Na [facility] 06-06-2024 Within the last year , have you been afraid of your partner or ex-partner? No 06/06/2024 9:46 AM EDT UserNa No [facility] 06-06-2024 Within the last year , have you been raped or forced to have any kind of sexual activity by your partner or ex-partner? No 06/06/2024 9:46 AM EDT UserNa No [facility] 06-06-2024 Within the last year , have you been kicked, hit, slapped, or otherwise physically hurt by your partner or ex-partner? No 06/06/2024 9:46 AM EDT User, Charliet No [facility] 06-06-2024 How often to you hav e a drink containing alcohol? Never 06/06/2024 9:46 AM EDT User, Heliohart Never [facility] 06-06-2024 Functional status Patient does n ot drink 06/06/2024 9:46 AM EDT User, Heliocatet Patient does not drink [facility] 06-06-2024 How often do you hav e 6 or more drinks on 1 occasion? Never 06/06/2024 9:46 AM EDT User, Charliet Never [facility] Clinical Notes 09-24-2020 to 01-24-2025 Telephone Encounter - Pradeep Ashraf RCP - 01/24/2025 3:55 PM ESTTelephone Encounter - Pradeep Ashraf RCP - 01/24/2025 3:55 PM Adrian Trevizo RN - 01/22/2025 6:27 PM ESTDischarge Instructions Note Date & Type Note Facility 01-24-2025 Telephone encounter Note COPD Navigator Note Called patient on home phone. No answer. Left Voicemail. [facility] 01-24-2025 Miscellaneous Notes COPD Navigator Note Called patient on home phone. No answer. Left Voicemail. documented in this encounter [facility] 01-22-2025 Nurse Note Report called to Marisela at [facility]. Belongings packed and sent with patient, including eye glasses. Patient states dentures were already at [facility], she did not have them during hospitalization. [facility] 01-22-2025 Nurse Note Report called to Marisela at [facility]. Belongings packed and sent with patient, including eye glasses. Patient states dentures were already at [facility], she did not have them during hospitalization. Wound Care consulted for Pressure Injury Prevention. Pt's Jeri score= 18 on 01/15 Pt's pressure points assessed. Pt turned independently in the bed for posterior assessment. Pt's Heels, Buttocks/coccyx, Back, Elbows, Occiput and ears all intact. Brent and blanchable tissues noted to sacrum. Pt moved lower extremities well in the bed throughout assessment. Instructed pt on pressure injury prevention and importance of turning/postioning every 2hrs while in bed and every 15 min while sitting in chair. Verbalized understanding. Prevention Measures in place, including: Pillows/wedges, Heels elevated off bed on pillows, Sacral foam (obtained and applied), Zinc/Moisture Barrier ointment (obtained), Waffle chair cushion (obtain if out of bed to chair). Skin Care precaution order set in place. Dietitian consult in place. PT consult N/A, activity/mobility subscores of 3. D/W nursing staff. Will continue to follow pt. Please secure chat for any questions or concerns. Rosalina Cross RN documented in this encounter [facility] 01-22-2025 Progress note Formatting of t his note might be different from the original. Case Management Discharge Summary Note Who you talked to: Name: Karishma Deluca, daughter PLAN: Prison Facility Facility: [facility], Level of Care: LTC, going to be skilled with PT/OT, and Transport: 6 PM [facility] 01-22-2025 Miscellaneous Notes Case Management Discharge Summary Note Who you talked to: Name: Karishma Deluca, daughter PLAN: Prison Facility Facility: [facility], Level of Care: LTC, going to be skilled with PT/OT, and Transport: 6 PM Confirmed pickup time of 6pm by transport [employer] at phone number [phone]. Location of facility drop off is TO RETURN BACK [facility]. Facility notified via [employer], [facility] notified on secure chat. Spoke to facility today, [facility]. Requested for patient to return while authorization is still pending because she lives there. They are agreeable and will follow for [facility] approval. Auth was initiated here by our [facility] and they are aware. Notified them that no 7000 will be completed because we currently have not obtained insurance authorization. Transport requested 4PM in Roundtrip. Awaiting time confirmation. Discharge med list transmitted to RETURN BACK TO [facility] via Careport per [facility] request. AUTH IS STILL PENDING: REQUEST TO SET UP TRANSPORT AND SEND DISCHARGE INFO TO FACILITY DID NOT COMPLETE 7000/PATIENT WAS [facility] Care Management Progress Note Short Medical why still here: Patient remains on 4S today awaiting insurance authorization for [facility], where she is LTC. Continue on 4L O2 NC, respiratory treatments. ATBX regimen through today for Pseudomonas. Geriatrics/Palliative following. Planned Discharge Disposition: Prison Facility, [facility]. Waiting on response from facility to see if we can discharge patient back to LTC and they obtain insurance authorization for skilled rehab. If not, then we will start insurance authorization today internally. Follow up recommended for PFTs, scheduled on 02/25 per Pulm note. Barriers/Today we still Wait: Facility pre-cert, Clinical stability, Administering IV medications Length of Stay (Days): 9 GMLOS: 3.5 Care Management Progress Note Short Medical why still here: Remains on 4S for acute on chronic hypoxic and hypercarbic respiratory failure secondary to acute exacerbation of COPD. Back to baseline 4L supplemental O2. Anticipate DC after auth received for skilled level of care at ECF. Planned Discharge Disposition: Prison Facility ([facility]) Barriers/Today we still Wait: Clinical stability, Facility pre-cert, Parts Washer recommendations (comment) (pending OT rec) Length of Stay (Days): 8 GMLOS: 3.5 PT/OT notes both rec return to ECF with PT/OT. Tasked [facility] [employer] [employer] to start [facility] Medicare auth for patient to return skilled. Spoke with attending - aware patient requires auth to return for SNF level of care. CM will continue to follow. Care Management Progress Note Short Medical why still here: Remains on 4S for acute on chronic hypoxic and hypercarbic respiratory failure secondary to acute exacerbation of COPD. Back to baseline 4L supplemental O2. Pending sensitivity to see if she can DC on PO antibiotic - anticipate back tomorrow. Planned Discharge Disposition: Prison Facility ([facility] - plan to return skilled, need auth) Barriers/Today we still Wait: Clinical stability, Facility pre-cert, Parts Washer recommendations (comment) (pending OT rec) Length of Stay (Days): 7 GMLOS: 3.5 CM tasked to follow patient through the weekend to assist with discharge needs. Chart reviewed. Expected Discharge, Rapid Rounding, and Discharge Milestones / Delays updated as appropriate. CM portion of SHAMA complete. Tasked to follow for possible weekend DC back to [facility] [place] [facility] [place] return with skilled services if appropriate and would need auth. PT/OT pending. Will follow. recs return to ECF with PT. OT remains pending. Family wants patient to return skilled. Will need to start auth Mon. Placed Therapy See Today request for updated notes tomorrow. CM will follow. Facility updated via CarePort. Care Managment Initial Assessment Date: 01/17/2025 Patient Name: Gonzalo Deluca : 1955 Patient Information Source of Information: Patient Cognition/Language: Indian Permission given to speak with patient risk control representative/caregiver as indicated: No Confirmation of Payer with patient/family: No Payer Name: [employer] Medicare Dual Complete : N/A Confirmation of Primary Care Physician: dr Herminia Case MD Primary Caregiver: Facility staff If assistance needed, confirmed caregiver ready, willing and able to care for patient at discharge: facility staff Confirmed with: [facility] Living Arrangements Current Residence: Number of Floors Number of Entry Steps: Bed/Bath Levels: Facility: Facility Name: [facility] Plan to Return: Yes Lives with: residents Support Systems: Children, Dtr and son Activities of Daily Living Ambulation: With walker/WC Bathing/Dressing: Indep Elimination/Continence/Toileting : Indep Feeding: Indep Who Assists with Activities of Daily Living: Facility medical staff if needed Instrumental Activities of Daily Living Prescription Coverage: Pharmacy Used: [id number] - [place], [place] - [address] [facility] [facility] Medication Management: Facility medical staff Transportation/Shopping: facility Transportation Mode: Van transport Needs Assistance with Transportation at Discharge: Yes, back to facility with ambulance transport Meal Preparation: Staff at facility Laundry/Cleaning: Staff at facility Finances/Bill Paying: Staff at facility Communication: Indep Types of Care Services/Equipment Utilized Care Services: Staff at facility Dialysis Type: N/A Durable Medical Equipment: WC, Walker, Oxygen patient states 4L Patient's Goal/Discharge Plan Patient expects to be discharged to: Discharge Planning Actions: Patient's Choice Rights and [employer] and Collaborative Relationships Disclosed as Indicated for Post-Acute Care: Yes Interdisciplinary Team Engagement: Yes Social Work Referral for: N/A Additional Information: Patient is from [facility]. Patient states she has lived there since August 2024. She uses a FWW to ambulate in her room, transfers to independently. She uses chronic oxygen/nebulizer. Active with provider at facility, receives prescriptions on site. She states daughter and son come to visit. She states she is agreeable to return. Denies any home going needs at this time. CM will continue to follow for updates and discharge planning. Patience Almonte RN COPD Navigator Note Introduced myself and explained my role. Reviewed Managing COPD at Home handout. Patient sitting upright in bed on 5L O2 with SpO2 95%. Wears 3-4L O2 at baseline. Patient states her breathing is improving but still not yet at baseline. She feels her breathing is 60-70% of normal. Breath sounds bilateral diminished. Strong congested nonproductive cough. Patient instructed on deep breathing and coughing techniques. Patient has established with COPD Clinic, Elyssa Tesfaye CNP. No PFTs . Reviewed home respiratory medications. Currently ordered: Albuterol MDI every 4 hours as needed, Breo daily, Spiriva daily. Patient has access to all of their medications and uses them as prescribed. Patient able to verbalize proper routine and schedule for inhaler use. Instructed on proper inhaler technique. Discussed Maintenance and Rescue medications. Patient is a former 0.5 ppd smoker. Quit 2019. Patient agreeable to assistance with scheduling hospital follow-up with pulmonary. Care Management Progress Note Short Medical why still here: Patient remains on 4S today for COPD exacerbation, acute respiratory failure with hypercarbia/bronchiectasis. Complaints of AMS, dyspnea. Reports cough and congestion. Pall, Pulm, and Geriatrics all consulted and seen. Noted, patient with lung infection, pseudomonas. Continue on 6L, weaning to baseline 3L as tolerated. Prednisone taper, prn oxycodone for dyspnea. Noted by Pulm purse lip breathing. Continue Cefepime for 7-10 day course. Resp med management continued. Monitoring labs/lytes. No therapy indicated at this time. Planned Discharge Disposition: Prison Facility, returning to [facility]. Updated on clinicals via Careport today. Declined BIPAP. Vapes, smoking cessation. Hx of anxiety/depression. CM will continue to follow for updates and discharge planning. Barriers/Today we still Wait: Clinical stability, Parts Washer recommendations (Pulmonology) Length of Stay (Days): 4 GMLOS: 3.5 Accepted ICU transfer from Dr. Pires Referral placed to return back to [facility] via Careport per TCC request. Await review and response regarding ability to accept. TCC notified. Request for SAW GRINDER to place referral to [facility]. CM will follow for updates and discharge planning. Images from the original note were not included. [facility] Palliative Care Transitions of Care Note Gonzalo Deluca : 1955 ADMIT DATE: 01/12/2025 DISCHARGE DATE: TBD PRIMARY CARE PHYSICIAN: HERMINIA CASE MD CODE STATUS: DNR-CCA DISCHARGE DIAGNOSES: Acute on chronic hypoxic and hypercarbic respiratory failure Anxiety Depression HOSPITAL COURSE: Gonzalo Deluca is a 69 y.o. female with PMH COPD/, arthritis, asthma, DDD, depression, anxiety, osteoporosis. She presented to ED from nursing facility with increased shortness of breath & cough. Patient's SpO2 was found to be at 85%. Patient was admitted to ICU for NIV. Palliative care was consulted for goals of care. Dyspnea - patient on Oxycodone 15mg q6h PRN SOB, used X 3 in last 24 hrs - will continue with same regimen for now Pain - patient on 15mg q6h PRN,used X 3 in alst 24 hrs At risk for OIC - patient had BM today - will place her on Senna S 1 tab BID Acute on chronic hypoxic and hypercarbic respiratory failure - per Dr. 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 -albumin 2.9 -BMI 18.19 -poor PO intake Debility -increased weakness -admitted from [facility] SNF -PT/OT as able -2nd admission since July 2024 CODE STATUS DISCUSSIONS: -Gonzalo Deluca retains capacity for medical decision-making -HCPOA: daughter Karishma [phone] - Another emergency contact listed is son Jace [phone] - pt admitted from [facility] SNF - met with patient this am, introduced self and role - patient was calm, comfortable, stated she is feeling better - Code status already DNRCCA/DNI - patient stated her goal is to get better and go back to [facility] - provided empathetic listening and emotional support to patient - discussed with bedside RN SYMPTOM MANAGEMENT MEDICATIONS: - not prescribed by our team DISPOSITION: TBD FACILITY/HOME CARE AGENCY NAME: TBD Follow up with Nursing facility Reason for Outpatient/Home/ECF Palliative Care follow-up: N/A Opiate Prescribing - not prescribed by our team SIGNED: Nilesh Frey APRN - [employer] 01/13/2025, 8:47 AM documented in this encounter [facility] 01-22-2025 Progress note Formatting of t his note might be different from the original. Confirmed pickup time of 6pm by transport [employer] at phone number [phone]. Location of facility drop off is TO RETURN BACK [facility]. Facility notified via [employer], [facility] notified on secure chat. [facility] 01-22-2025 Progress note Formatting of t his note might be different from the original. Spoke to facility today, [facility]. Requested for patient to return while authorization is still pending because she lives there. They are agreeable and will follow for [facility] approval. Auth was initiated here by our [facility] and they are aware. Notified them that no 7000 will be completed because we currently have not obtained insurance authorization. [facility] 01-22-2025 Progress note Formatting of t his note might be different from the original. Transport requested 4PM in Roundtrip. Awaiting time confirmation. [facility] 01-22-2025 Progress note Formatting of t his note might be different from the original. Discharge med list transmitted to RETURN BACK TO [facility] via Careport per TCC request. AUTH IS STILL PENDING: REQUEST TO SET UP TRANSPORT AND SEND DISCHARGE INFO TO FACILITY DID NOT COMPLETE 7000/PATIENT WAS [facility] 01-22-2025 Note [facility] 01-22-2025 Hospital course Narrative Images from the original note were not included. Hospitalist Discharge Summary Gonzalo Deluca : 1955 Admit date: 01/12/2025 Discharge date: 01/22/2025 Admitting Physician: Clemente Lynn MD Primary Care Physician: HERMINIA CASE MD Visit Status: admission. Code Status: DNR-CCA Discharge Diagnoses: Acute on chronic hypoxic hypercapnic respiratory failure Acute COPD Exacerbation Advanced emphysema Bronchiectasis Severe malnutrition Acute metabolic encephalopathy, resolved Anxiety Depression Hx of tobacco use Hx of DDD Hx of lung nodules Hx of thoracic compression fracture Hospital Course: Patient admitted for acute on chronic hypoxic hypercapnic respiratory failure and AMS with acute COPD Exacerbation. Was requiring NIV and admitted to ICU. Stabilized and transferred out of ICU on 01/15/25. Followed by pulmonology. Patient with likely infectious etiology for acute COPD exacerbation. Patient found to be positive for pseudomonas aeruginosa. Completed 10 day course of IV abx. Patient on GDMT per pulmonology recs. Patient labs, vitals, and mentation stabilized during hospital course. She is cleared by pulmonology for discharge. She is to follow up with PCP and pulmonology outpatient in 1-2 weeks. She is discharged to SNF in improved and stable condition on 01/22/25. Consults: IP CONSULT TO PALLIATIVE CARE IP CONSULT TO WOUND PREVENTION IP CONSULT TO PULMONOLOGY IP CONSULT TO GERIATRICS IP CONSULT TO SOCIAL WORK Discharge Instructions: Diet: Adult diet Regular Activity: as tolerated Recommended Outpatient Tests: Disposition: Patient discharged in stable condition to SNF LABS: CBC: No results for input(s): "WBC", [...] input(s): "COVID19" in the last 72 hours. Vitals Including Dry Weight: BP 122/75 (BP Location: Left arm, Patient Position: Lying) Pulse 92 Temp 36.6 C (97.8 F) (Temporal) Resp 18 Ht 5' 4" (1.626 m) Wt 118 lb 3.2 oz (53.6 kg) SpO2 96% BMI 20.29 kg/m Pulse Ox: SpO2 Av.8 % Min: 93 % Max: 97 % Supplemental O2: O2 Flow Rate (L/min): 4 L/min General appearance: No apparent distress, appears stated age and cooperative with exam, female in NAD Respiratory: Diminished course lung sounds BL, no wheezing. Cardiovascular: Regular rate and rhythm with no murmur Abdomen: Soft, non-tender, non-distended. Skin: Skin color, texture, turgor normal. No rashes or lesions. Distal pulses intact in BL LE, no edema in BL LE Neurologic:Cranial nerves: II-XII intact, grossly non-focal. Discharge Medications: Medication List START taking these medications cholecalciferol 50 MCG (2000 UT) tablet Commonly known as: Vitamin D-3 Take 1 tablet (2,000 Units) by mouth daily. Start taking on: January 23, 2025 pantoprazole 40 MG EC tablet Commonly known as: ProtoNix Take 1 tablet (40 mg) by mouth every morning. Do not crush, chew, or split. Start taking on: January 23, 2025 predniSONE 10 MG tablet Commonly known as: Deltasone Take 2 tablets (20 mg) by mouth daily for 1 day, THEN 1 tablet (10 mg) daily for 3 days. Start taking on: January 23, 2025 senna-docusate sodium 8.6-50 MG tablet Commonly known as: Senokot-S Take 1 tablet by mouth 2 times daily. sodium chloride 3 % nebulizer solution Take 4 mL by nebulization 2 times daily as needed for cough (chest congestion). CHANGE how you take these medications oxyCODONE 15 MG immediate release tablet Commonly known as: Roxicodone Take 1 tablet (15 mg) by mouth every 6 hours as needed (pain). What changed: reasons to take this CONTINUE taking these [...] MCG/ACT nasal spray Commonly known as: Flonase folic acid 1 MG tablet Commonly known as: Folvite Take 1 tablet (1 mg) by mouth daily. guaiFENesin 600 MG 12 hr tablet Commonly known as: Mucinex Take 2 tablets (1,200 mg) by mouth 2 times daily as needed for cough or congestion for up to 28 doses. Do not crush, chew, or split. hydrOXYzine pamoate 25 MG capsule Commonly known as: Vistaril magnesium oxide 400 MG tablet Commonly known as: Mag-Ox melatonin 3 MG tablet Take 1 tablet (3 mg) by mouth Nightly. mirtazapine 15 MG tablet Commonly known as: Remeron Take 1 tablet (15 mg) by mouth Nightly. montelukast 10 MG tablet Commonly known as: Singulair QUEtiapine 50 MG tablet Commonly known as: SEROquel Take 1 tablet (50 mg) by mouth Nightly as needed (Anxiety and Sleep). Spiriva Respimat 2.5 MCG/ACT inhaler Generic drug: tiotropium Zinc 50 MG capsule * This list has 2 medication(s) that are the same as other medications prescribed for you. Read the directions carefully, and ask your doctor or other care provider to review them with you. STOP taking these medications Fluticasone-Salmeterol 250-50 MCG/ACT aerosol powder Where to Get Your Medications These medications were sent to [facility]/pharmacy #[id number] [place] [id number] [facility] [address] [id number] [place] [id number] predniSONE 10 MG tablet sodium chloride 3 % nebulizer solution You can get these medications from any pharmacy Bring a paper prescription for each of these medications oxyCODONE 15 MG immediate release tablet Information about where to get these medications is not yet available Ask your nurse or doctor about these medications cholecalciferol 50 MCG (2000 UT) tablet pantoprazole 40 MG EC tablet senna-docusate sodium 8.6-50 MG tablet Recommended Follow-up: PCP and pulmonology outpatient in 1-2 weeks. @[email or web address]@ Complexity of Follow up: [] Moderate Complexity: follow up within 7-14 calendar days (25008) [x] Severe Complexity: follow up within 7 calendar days (58210) Follow up Testing, Pending results or Referrals [...] appointment within the above time frame. Signed: Dave Whipple DO [facility] 01/22/2025, 1:50 PM Total time Spent on Discharge: 32 minutes documented in this encounter [facility] 01-22-2025 History of Presen t illness Narrative Images from the original note were not included. PHYSICAL THERAPY [facility] Treatment Note Name/MRN: Gonzalo Deluca ([id number]) Date of : 1955 Age: 69 y.o. Room/Bed: B4450/B4450 A Visit #: 3 out of 5 Discharge Recommendation: ECF with PT Equipment Needed: No Prior Level of Function Prior Level of ADL Function: Independent Prior Level of Mobility: Required Assist; Device: Front wheeled walker and Wheelchair - manual Prior Level of Transfers: Independent Assessment Pt continues to make good overall progress towards established therapy goals this date. Remains limited by SOB and fatigue. Pt completed bed mobility at Indep, STS transfers with fww at Mod I, Gait training with fww completed at CGA/SBA. Pt tolerated all activity well and gave good overall effort. Vitals noted in subjective below, notable desat with mobility. Pt will continue to benefit from skilled therapy services during acute medical stay to improve upon presenting deficits prior to discharge to ECF with PT. Subjective Pt pleasant and agreeable to PT session. RN cleared pt for session. Vitals: Spo2 pre ambulation 92%, desat to 80% post ambulation. 3 minute recovery to 91% required with PLB training. Pain: Pt denies any current pain. Medical Precautions: No active isolations Proper PPE donned/doffed in accordance with facility standards. Fall Risk: Webb Fall Risk Score: 35 (Medium Risk) Precautions/Restrictions: N/A Overall Cognitive Status: WNL Overall Orientation Status: Oriented x4 Family/Caregiver Present: none Objective Bed Mobility Supine to sit: Independent Sit to supine: Independent Scooting: Independent Indep with all bed mobility. No LOB. No dizziness. Transfers/Mobility Sit to stand: Modified Independent Stand to sit: Modified Independent STS from EOB x3 with fww at Mod I. No LOB. Good overall safety and stability with adequate transfer surface approximation. Device(s) used: Front wheeled walker Ambulation Ambulation 1 Assistive device(s) used: Front wheeled walker Assist level: SBA, Contact Guard Distance (ft): 45ft x1 Quality of gait: No LOB, reciprocal stepping, B foot clearance, shuffling, narrow SADIE, slow lauren Pt completed gait training with fww at [facility] progressing to SBAx1. Notable SOB present with gait training, desat present. Cues for improving foot clearance, activity pacing and overall body mechanics. Good return noted. No overt LOB. Increased time needed d/t fatigue and SOB. Able to recover sitting EOB with PLB education. Plan Continue acute PT per plan of [...] Safety, Equipment, Fall Prevention Education, Discharge Recommendations, and Benefits of Increasing Activity Education Method: Verbal, Demonstration, and Teach Back Barriers to Learning: None Education Outcome: Verbalized Understanding, Demonstrated Understanding, and Continued Education Needed Outcome Measures AM-PAC AM-PAC Inpatient Mobility Raw Score (No Stairs) : 19 JH-HLM JH-HLM Scale: Walked 25 ft or more (i.e. walked outside of room) Goals Patient Stated Goal: to go back to ECF Encounter Problems Encounter Problems (Active) Balance Patient will maintain dynamic standing balance for 5 minutes with supervision in order to demonstrate decreased risk of falling. (Progressing) Start: 01/19/25 Expected End: 01/26/25 Exercise Patient will complete lower extremity exercises for 1-2 sets / 5-10 reps in order to improve strength and activity tolerance for mobility. (Not Addressed) Start: 01/19/25 Expected End: 01/26/25 Standing exercise Mobility Patient will ambulate 150 feet with modified independence and rolling walker in order to improve safety and independence with mobility. (Progressing) Start: 01/19/25 Expected End: 01/26/25 PT Misc Misc: Pt will independently demo 2 energy conservation techniques to improve activity tolerance and functional mobility (Progressing) Start: 01/19/25 Expected End: 01/26/25 Transfers Patient will complete functional transfer with rolling walker with modified independence in order to prepare for ambulation. (Progressing) Start: 01/21/25 Expected End: 01/26/25 Therapy Time Individual Co-treatment Time In 09 Time Out 0921 Minutes 12 Timed Code Treatment Minutes: 10 Minutes (gait x1) Rayo Joseph PT Images from the original note were not included. OCCUPATIONAL THERAPY [facility] Treatment Note Name/MRN: Gonzalo Deluca ([id number]) Date of : 1955 Age: 69 y.o. Room[facility]Bed: [facility] A Visit #: 1 out of 3 Discharge Recommendation: ECF with OT Equipment Needed: No Prior Level of Function Prior Level of ADL Function: Independent Prior Level of Mobility: Required Assist; Device: Wheelchair - manual Prior Level of Transfers: Independent Assessment Pt tolerated session fair, continues to be limited by fatigue and SOB. Pt completed x2 STS and functional mobility with FWW at A. Pt SpO2 dropping to 82%, required lengthy seated pursed lip breahting break to recover. Pt politely declined ADLs. Pt is progressing with POC but is still below baseline and is a fall risk. Pt would benefit from continued OT to improve activity tolerance, balance, and strength needed for improved occupational performance. Pt is recommended for ECF with OT at D/C Subjective Pt supine in bed, pleasant and agreeable. O2: 4L SpO2: 82% post mobility, increased to 90-92 after ~2-3 mins of pursed lip breathing Pain: Pt denies any current pain. Medical Precautions: No active isolations Proper PPE donned/doffed in accordance with facility standards. Fall Risk: Webb Fall Risk Score: 35 (Medium Risk) Precautions/Restrictions: N/A Family/Caregiver Present: none Objective ADLs Pt politely declined Bed Mobility Supine to sit: Modified Independent Scooting: Modified Independent HOB Elevated Pt completed supine to sit with HOB elevated at Mod I. Pt denied dizziness and required no hands on assist to complete Transfers/Mobility Sit to stand: SBA Stand to sit: SBA, Pt completed x2 STS from EOB with FWW at SBA. Pt required VC for BUE placement, demo good teachback. Pt denied dizziness. Sitting balance: Independent Standing balance: SBA Functional mobility: SBA Pt completed short household distance functional mobility in room and hallway with FWW at SBA. Pt demo increased reliance on FWW and VC for pacing as pt became more impulsive as became SOB. Pt ed on energy conservation tech and splitting tasks into smaller increments to prevent such SOB. Pt demo understanding Device(s) used: Front wheeled walker Cognition - Safety judgement: good awareness of safety precautions WFL Plan Continue acute OT per plan of care. Safety/Education Safety Safety Devices in place: All fall risk precautions in place, call light within reach, patient at risk for falls, nurse notified, no alarms engaged upon entry, and patient left sitting EOB Restraints: No Education Education Given To: patient Education Provided: OT Role, Plan of Care, Precautions, Transfer Training, Equipment, Fall Prevention Education, and Discharge Recommendations Education Method: Verbal, Demonstration, and Teach Back Barriers to Learning: None Education Outcome: Verbalized Understanding, Demonstrated Understanding, and Continued Education Needed AM-PAC AM-PAC Inpatient Daily Activity Raw Score: 21 ADL Inpatient CMS G-Code Modifier: CJ Goals Patient Stated Goal: to return home. Encounter Problems Encounter Problems (Active) Dressings Lower Extremities Patient will dress lower body MOD I (Not Addressed) Start: 01/20/25 Expected End: 01/27/25 Mobility Patient will demonstrate functional mobility with MOD I and LRD (Progressing) Start: 01/20/25 Expected End: 01/27/25 Toileting Patient will complete toileting tasks at standard toilet with modified independence. (Not Addressed) Start: 01/20/25 Expected End: 01/27/25 Therapy Time Individual Co-treatment Time In 1104 Time Out 1121 Minutes 17 Timed Code Treatment Minutes: 17 Minutes (1 Ther Act) VAN Nelson Cosigned by Heidi Park OT at 01/22/2025 3:05 PM EST [facility] Geriatric Medicine Inpatient Consult Service Admission Date: 01/12/2025 Assessment Principal Problem: COPD exacerbation (HCC) Active Problems: Debility Anxiety and depression Cognitive deficits At risk for delirium Other chronic pain Moderate malnutrition (CMS/HCC) (HCC) Plan Debility --contributing factors include medications, chronic respiratory failure, malnutrition, cognitive decline --using walker/wheelchair at baseline. Living at [facility] since July. Per daughter, she is not eligible for medicaid and may need alternative living arrangement. Social Work consulted. --PT and OT --dietitian following --Continue Vitamin D3 supplement 01/22: Making good progress with therapy - plan to return to [facility] with therapy. Depression and Anxiety --On Wellbutrin XL 150mg daily - consider weaning outpatient. May worsen anxiety and weight loss. --Continue Buspirone 15mg - takes TID at facility. On BID currently. Consider increasing to home (facility) dose. --Discontinued Paxil - has not taken since August. Removed from home medication list --Continue Mirtazapine 15mg at bedtime --Seroquel - she is not ordered Seroquel at the facility, however it is being filled at [facility] under prior PCP order for 200mg daily at bedtime as needed. Patient has been self-administering it at the facility. Reviewed with daughter and patient that the facility should be aware of any medication the patient is taking so that they can assess for side effects, interactions. Will continue Seroquel 50mg nightly PRN. --Taking Hydroxyzine at facility. Recommend avoiding. --Recommend outpatient Psychiatry to follow 01/22: She was restarted on Hydroxyzine PRN on 01/20. Recommend titrating Buspirone as above with goal to resume home dose. Goal to avoid/minimize use of Hydroxyzine. Continue Seroquel 50mg nightly PRN. Patient understands not to self-administer Seroquel. Cognitive deficits --+ history of cognitive decline at home. + history of decline in ADL's and IADL's --TSH 0.28 in July, B12 639 in July --Head imaging - Apr 2024 reviewed. September 2023 - Unchanged small area of encephalomalacia in the lateral aspect of the right occipital lobe. --History concerning for baseline cognitive deficits. Concern mood and medications also contributing. --Recommend outpatient follow up at [facility] for more in depth cognitive evaluation when in usual state of health if she returns home. 01/22: Stable. Recommend outpatient cognitive evaluation at her facility if she stays there intermediate. Chronic pain --takes Oxycodone 15mg every 6 hours as needed for pain or shortness of breath --Palliative medicine following --On Methocarbamol - takes 1,000 mg every 8 hours as needed at facility. Agree with lower dose of 500mg. Consider changing to low dose Tizanidine prn. 01/22: Stable. Pain controlled. Continue plan. At risk for delirium --noted to have delirium initially that has resolved. --Risk factors: pain, acute illness, high risk medications, history of delirium, and baseline cognitive deficits --Encourage PO intake, time up in chair, family visits, supervised ambulation, and sleep hygiene --If agitated, assess for and consider treating for pain --QTc= 439 ms --Continue Seroquel 50mg HS PRN --Continue scheduled melatonin at HS --Monitor for constipation/urinary retention - last BM 01/21 --Possible medication contributions: steroids 01/22: At baseline. Continue plan. OK to discharge to [facility] from geriatric perspective once cleared by primary, pulmonology. Follow-up: prn, please page with any questions/issues Subjective Chief Complaint: requests to be discharged Geriatrics consulted for "ECF patient, patient on multiple antianxiety/antidepressants" HPI- The patient is known to me. 69 y.o. year-old female with PMH of COPD, cervical cancer, DDD, DJD, osteoporosis, depression, compression fracture, vitamin D deficiency, anxiety, malnutrition, pneumonia presented to the hospital from [facility] for shortness of breath and hypoxia. Admitted to the ICU for acute encephalopathy, acute on chronic hypoxic/hypercapnic respiratory failure. Required NIV. Treated for COPD exacerbation, Bronchiectasis exacerbation. REceived Cefepime for concern for recurrent pseudomonas respiratory infection. Transitioned out of ICU 01/15. Respiratory status has been improving. Interval History: Remains on general medical/surgical floor . Respiratory culture reviewed - rare pseudomonas sensitive to Cefepime Last CBC BMP 01/19 - reviewed Patient states she is feeling much better. She is ready to be discharged back to the facility. Sleeping ok. Has been asking for the seroquel at night. Denies taking her own Seroquel while hospitalized as she was at the facility. Has chronic pain that is manageable. Eating ok. Seen by PT. Ambulated 45 ft x 1 CGA with FWW. Recommending facility based therapy. Review of Systems Constitutional: Negative for fatigue. Respiratory: Positive for cough and shortness of breath (with activity). Cardiovascular: Negative for chest pain and leg swelling. Gastrointestinal: Negative for abdominal pain, constipation, diarrhea and nausea. Genitourinary: Negative for difficulty urinating. Musculoskeletal: Positive for gait problem. Negative for arthralgias. Neurological: Positive for weakness. Psychiatric/Behavioral: Negative for confusion and sleep disturbance. The patient is not nervous/anxious. Objective BP 122/75 (BP Location: Left arm, Patient Position: Lying) Pulse 92 Temp 36.6 C (97.8 F) (Temporal) Resp 18 Ht 5' 4" (1.626 m) Wt 118 lb 3.2 oz (53.6 kg) SpO2 96% BMI 20.29 kg/m No intake or output data in the 24 hours ending 01/22/25 1042 Wt Readings from Last 3 Encounters: 01/22/25 118 lb 3.2 oz (53.6 kg) 08/20/24 93 lb 3.2 oz (42.3 kg) 08/03/24 89 lb 1.1 oz (40.4 kg) Current Medications[1] Physical Exam Vitals reviewed. Constitutional: General: She is not in acute distress. Appearance: She is not ill-appearing. HENT: Head: Normocephalic and atraumatic. Cardiovascular: Rate and Rhythm: Normal rate and regular rhythm. Pulmonary: Effort: Pulmonary effort is normal. Breath sounds: Decreased breath sounds present. Abdominal: General: There is no distension. Palpations: Abdomen is soft. Tenderness: There is no abdominal tenderness. Musculoskeletal: Right lower leg: No edema. Left lower leg: No edema. Neurological: Mental Status: She is alert. Psychiatric: Attention and Perception: Attention normal. Mood and Affect: Affect normal. Comments: Appropriate in conversation Labs and Imaging: No results found for this or any previous visit (from the past 24 hours). Lab Results Component Value Date TSH 0.28 (L) 07/30/2024 Lab Results Component Value Date [id number] 07/30/2024 Lab Results Component Value Date VITD25 24 01/16/2025 Reviewed: allergies, previous encounters, active problem lists, medications, and labs [1] Current Facility-Administered Medications: acetaminophen (Tylenol) tablet 650 mg, 650 mg, Oral, q6h PRN, Clemente Lynn MD, 650 mg at 01/20/25 0142 albuterol (2.5 MG/3ML) 0.083% nebulizer solution 2.5 mg, 2.5 mg, Nebulization, q2h PRN, Clemente Lynn MD aspirin EC tablet 81 mg, 81 mg, Oral, Daily, Clemente Lynn MD, 81 mg at 01/22/25 0809 buPROPion XL (Wellbutrin XL) 24 hr tablet 150 mg, 150 mg, Oral, Daily, Clemente Lynn MD, 150 mg at 01/22/25 0808 busPIRone (Buspar) tablet 15 mg, 15 mg, Oral, BID, Clemente Lynn MD, 15 mg at 01/22/25 0809 cholecalciferol (Vitamin D-3) tablet 2,000 Units, 2,000 Units, Oral, Daily, DB Merrill CNP, 2,000 Units at 01/22/25 0811 Diclofenac Sodium (Voltaren) 1 % gel 2 g, 2 g, Topical, BID, Austin Walker MD, 2 g at 01/20/25808 enoxaparin (Lovenox) syringe 40 mg, 40 mg, SubCUTAneous, Daily, Clemente Lynn MD, 40 mg at 01/22/25808 fluticasone (Flonase) nasal spray 2 spray, 2 spray, Each Nostril, Daily, Srini Pires MD, 2 spray at 01/22/25810 folic acid (Folvite) tablet 1 mg, 1 mg, Oral, Daily, Clemente Lynn MD, 1 mg at 01/22/25808 guaiFENesin (Mucinex) 12 hr tablet 600 mg, 600 mg, Oral, BID, Srini Pires MD, 600 mg at 01/22/25808 hydrOXYzine pamoate (Vistaril) capsule 25 mg, 25 mg, Oral, q12h PRN, Austin Walker MD, 25 mg at 01/21/252237 influenza vaccine A&B surf ant adjuvanted (Fluad) HIGH-DOSE injection 0.5 mL, 0.5 mL, IntraMUSCular, Prior to discharge, Clemente Lynn MD ipratropium-albuterol (Duo-Neb) 0.5-2.5 mg/3 mL nebulizer solution 3 mL, 3 mL, Nebulization, TID, Clemente Lynn MD, 3 mL at 01/22/25922 melatonin tablet 3 mg, 3 mg, Oral, Nightly, Clemente Lynn MD, 3 mg at 01/21/252033 methocarbamol (Robaxin) tablet 500 mg, 500 mg, Oral, q8h PRN, Srini Pires MD, 500 mg at 01/21/252237 mirtazapine (Remeron) tablet 15 mg, 15 mg, Oral, Nightly, Clemente Lynn MD, 15 mg at 01/21/252033 mometasone-formoterol (Dulera 100) 100-5 MCG/ACT inhaler 2 puff, 2 puff, Inhalation, BID, Srini Pires MD, 2 puff at 01/22/25810 montelukast (Singulair) tablet 10 mg, 10 mg, Oral, Nightly, Clemente Lynn MD, 10 mg at 01/21/252033 naloxone (Narcan) injection 0.4 mg, 0.4 mg, IntraVENous, q5 min PRN, Clemente Lynn MD ondansetron ODT (Zofran-ODT) disintegrating tablet 4 mg, 4 mg, Oral, q8h PRN, 4 mg at 01/21/25 0834 OR ondansetron (Zofran) injection 4 mg, 4 mg, IntraVENous, q6h PRN, Clemente Lynn MD, 4 mg at 01/12/252038 oxyCODONE (Roxicodone) immediate release tablet 15 mg, 15 mg, Oral, q6h PRN, Ruth العراقي MD, 15 mg at 01/22/25807 pantoprazole (ProtoNix) EC tablet 40 mg, 40 mg, Oral, q AM, Clemente Lynn MD, 40 mg at 01/22/25 08 [COMPLETED] predniSONE (Deltasone) tablet 40 mg, 40 mg, Oral, Daily, 40 mg at 01/17/25 1020 FOLLOWED BY [COMPLETED] predniSONE (Deltasone) tablet 30 mg, 30 mg, Oral, Daily, 30 mg at 01/20/25 0808 FOLLOWED BY predniSONE (Deltasone) tablet 20 mg, 20 mg, Oral, Daily, 20 mg at 01/22/25 0807 FOLLOWED BY [START ON 01/24/2025] predniSONE (Deltasone) tablet 10 mg, 10 mg, Oral, Daily, Srini Pires MD QUEtiapine (SEROquel) tablet 50 mg, 50 mg, Oral, Nightly PRN, Clemente Lynn MD, 50 mg at 01/21/252033 senna-docusate sodium (Senokot-S) 8.6-50 MG tablet 1 tablet, 1 tablet, Oral, BID, Ruth العراقي MD, 1 tablet at 01/22/25 08 sodium chloride 3 % hypertonic nebulizer solution 4 mL, 4 mL, Nebulization, BID, Srini Pires MD, 4 mL at 01/22/25 0923 Images from the original note were not included. [facility], Pulmonary Medicine [address] [place] [id number] Patient - Gonzalo Deluca, Age - 69 y.o. - 1955 Room Number - B4-450/[id number] A Consulting - Dave Whipple DO Primary Care Physician - HERMINIA CASE MD Date of Admission - 01/12/2025 9:18 AM Hospital Day - 10 Chief Complaint: Gonzalo Deluca is a 69 y.o. female who pulmonary is following for COPD AE, acute hypoxic respiratory failure, bronchiectasis, hospital follow up Subjective/Interval History: Patient sitting up in bed receiving nebulizer treatment. Denied any chest pain, cough or shortness of breath this morning. Stable on 4 liters NC. She is requesting to be discharged today with or without facility pre-cert A pertinent review of systems was performed and was otherwise non-contributory except as detailed in Subjective section above. Objective: Vitals: BP 122/75 (BP Location: Left arm, Patient Position: Lying) Pulse 92 Temp 36.6 C (97.8 F) (Temporal) Resp 18 Ht 5' 4" (1.626 m) Wt 118 lb 3.2 oz (53.6 kg) SpO2 96% BMI 20.29 kg/m Pulse Ox: SpO2 Av.5 % Min: 93 % Max: 97 % Supplemental O2: O2 Flow Rate (L/min): 4 L/min I/O 24HR INTAKE/OUTPUT: No intake or output data in the 24 hours ending 01/22/25 0940 Physical Exam: Physical Exam Vitals and nursing note reviewed. Constitutional: General: She is not in acute distress. Appearance: She is not toxic-appearing. HENT: Head: Normocephalic and atraumatic. Nose: Nose normal. No congestion or rhinorrhea. Eyes: General: No scleral icterus. Right eye: No discharge. Left eye: No discharge. Cardiovascular: Rate and Rhythm: Normal rate and regular rhythm. Pulmonary: Effort: No respiratory distress. Breath sounds: No stridor. Rhonchi present. No wheezing or rales. Chest: Chest wall: No tenderness. Musculoskeletal: Right lower leg: No edema. Left lower leg: No edema. Skin: General: Skin is warm and dry. Coloration: Skin is not jaundiced. Findings: No lesion or rash. Neurological: Mental Status: She is oriented to person, place, and time. Mental status is at baseline. Psychiatric: Mood and Affect: Mood normal. Behavior: Behavior normal. Medications: Allergies[1] Current Medications[2] PRN Meds[3] Labs: CBC: No results for input(s): "WBC", "HGB", "HCT", "PLT", "MCV", "RDW" in the last 72 hours. BMP: No results for input(s): "NA", "K", "CL", "CO2", "BUN", "CREATININE", "CALCIUM", "MG", "PHOS" in the last 72 hours. Glucose: No results for input(s): "GLUCOSE", "POCGLU", "BHYDRXBUT" in the last 72 hours. ABGs: No results for input(s): "PHART", "AIK9WGR", "PO2ART", "DXK3LBB", "SO2ART", "V7WQDKJO" in the last 72 hours. Microbiology: COVID/Flu/RSV: Negative Respiratory pathogens PCR: Negative Urine antigens: Negative Blood cultures: NGTD MRSA PCR: + Staph aureus, negative mecA gene Respiratory culture: Rare Pseudomonas aeruginosa Pneumonia PCR panel: + Pseudomonas aeruginosa Imaging/ Testing: CXR 01/13/25: FINDINGS: LUNGS AND PLEURAL SPACES: COPD, unchanged. Coarse bilateral interstitial lung markings. No consolidation. No pneumothorax. HEART: Unremarkable. No cardiomegaly. MEDIASTINUM: Unremarkable. Normal mediastinal contour. BONES/JOINTS: Thoracic degenerative spondylosis. No acute fracture. TUBES, LINES AND DEVICES: Left IJ MediPort catheter tip overlies mid SVC, unchanged. IMPRESSION: Emphysema, unchanged. Parenchymal fibrotic changes. Left subclavian MediPort, unchanged Problem List[4] Assessment and Plan/Recommendations: Acute on chronic hypoxic & hypercarbic respiratory failure -Secondary to COPD AE and bronchiectasis exacerbation -Improved. Stable on 4 liters NC. -Maintain SpO2 > 88% COPD AE/ Advanced emphysema -Improved. No longer in acute exacerbation -Tatianna Maki's. Resume Breo and Spiriva at discharge -Complete prednisone taper as ordered -PRN oxycodone for dyspnea per palliative care -COPD navigator following -Consider outpatient pulmonary rehab after SNF -PFT's scheduled 02/25 Bronchiectasis with concern for acute LRTI, + Pseudomonas aeruginosa -Prior CT chest in November with diffuse bronchiectasis, mucus plugging. Hx pseudomonas in the past. -Pneumonia PCR and sputum culture + for Pseudomonas aeruginosa. 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 Counseled on smoking cessation and advised to quit smoking completely. Declined NRT Advance Directive: DNR-CCA Discharge planning: Stable to discharge from pulmonary standpoint. Hospital follow up scheduled with Sofia LISA on 02/06/25. Will sign off at this time, please feel free to contact our service for any further questions or changes in clinical status. COPD Discharge Checklist Established patient Outpatient Pulmonary provider: Elyssa LISA Reviewed Managing COPD at Home worksheet: Yes Active smoker? Yes Vaping NRT? No Smoking Cessation Coordinator consult: Yes Pulmonary Rehabilitation Phase 1 consult: Yes COPD Navigator consult: Yes Medications: LAMA: Yes LABA/LAMA: Yes Rescue inhaler: Yes Home Nebulizer: Yes Nebulizer solution: Yes Steroids: taper Antibiotics: No Home O2? Yes Baseline liter flow: 3-4 liters NC Home O2 evaluation needs: 4 liters NC Home PAP therapy? No Hypercapnia? Yes Discharge disposition: ECF with therapy 7-day hospital follow up in COPD Clinic: Sofia LISA 02/06/25 Outpatient testing/therapy recommendations: Smoking cessation, Follow up CT chest, PFT's Case discussed with nurse and patient Questions and concerns addressed. [1] Allergies Allergen Reactions Pollen Extract Unknown [2] Current Facility-Administered Medications: acetaminophen (Tylenol) tablet 650 mg, 650 mg, Oral, q6h PRN, Clemente Lynn MD, 650 mg at 01/20/25 0142 albuterol (2.5 MG/3ML) 0.083% nebulizer solution 2.5 mg, 2.5 mg, Nebulization, q2h PRN, Clemente Lynn MD aspirin EC tablet 81 mg, 81 mg, Oral, Daily, Clemente Lynn MD, 81 mg at 01/22/25 0809 buPROPion XL (Wellbutrin XL) 24 hr tablet 150 mg, 150 mg, Oral, Daily, Clemente Lynn MD, 150 mg at 01/22/25 0808 busPIRone (Buspar) tablet 15 mg, 15 mg, Oral, BID, Clemente Lynn MD, 15 mg at 01/22/25 0809 cholecalciferol (Vitamin D-3) tablet 2,000 Units, 2,000 Units, Oral, Daily, Saad Telles, 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 - MOTION PICTURE SET GRIP, 2,000 Units at 01/22/25 0811 Diclofenac Sodium (Voltaren) 1 % gel 2 g, 2 g, Topical, BID, Austin Walker MD, 2 g at 01/20/25 0809 enoxaparin (Lovenox) syringe 40 mg, 40 mg, SubCUTAneous, Daily, Clemente Lynn MD, 40 mg at 01/22/25 0809 fluticasone (Flonase) nasal spray 2 spray, 2 spray, Each Nostril, Daily, Srini Pires MD, 2 spray at 01/22/25 0811 folic acid (Folvite) tablet 1 mg, 1 mg, Oral, Daily, Clemente Lynn MD, 1 mg at 01/22/25 0809 guaiFENesin (Mucinex) 12 hr tablet 600 mg, 600 mg, Oral, BID, Srini Pires MD, 600 mg at 01/22/25 0809 hydrOXYzine pamoate (Vistaril) capsule 25 mg, 25 mg, Oral, q12h PRN, Austin Walker MD, 25 mg at 01/21/25 2238 influenza vaccine A&B surf ant adjuvanted (Fluad) HIGH-DOSE injection 0.5 mL, 0.5 mL, IntraMUSCular, Prior to discharge, Clemente Lynn MD ipratropium-albuterol (Duo-Neb) 0.5-2.5 mg/3 mL nebulizer solution 3 mL, 3 mL, Nebulization, TID, Clemente Lynn MD, 3 mL at 01/22/25922 melatonin tablet 3 mg, 3 mg, Oral, Nightly, Clemente Lynn MD, 3 mg at 01/21/252033 methocarbamol (Robaxin) tablet 500 mg, 500 mg, Oral, q8h PRN, Srini Pires MD, 500 mg at 01/21/252237 mirtazapine (Remeron) tablet 15 mg, 15 mg, Oral, Nightly, Clemente Lynn MD, 15 mg at 01/21/252033 mometasone-formoterol (Dulera 100) 100-5 MCG/ACT inhaler 2 puff, 2 puff, Inhalation, BID, Srini Pires MD, 2 puff at 01/22/25810 montelukast (Singulair) tablet 10 mg, 10 mg, Oral, Nightly, Clemente Lynn MD, 10 mg at 01/21/252033 naloxone (Narcan) injection 0.4 mg, 0.4 mg, IntraVENous, q5 min PRN, Clemente Lynn MD ondansetron ODT (Zofran-ODT) disintegrating tablet 4 mg, 4 mg, Oral, q8h PRN, 4 mg at 01/21/25 0834 OR ondansetron (Zofran) injection 4 mg, 4 mg, IntraVENous, q6h PRN, Clemente Lynn MD, 4 mg at 01/12/252038 oxyCODONE (Roxicodone) immediate release tablet 15 mg, 15 mg, Oral, q6h PRN, Ruth العراقي MD, 15 mg at 01/22/25 0808 pantoprazole (ProtoNix) EC tablet 40 mg, 40 mg, Oral, q AM, Clemente Lynn MD, 40 mg at 01/22/25 0807 [COMPLETED] predniSONE (Deltasone) tablet 40 mg, 40 mg, Oral, Daily, 40 mg at 01/17/25 1020 FOLLOWED BY [COMPLETED] predniSONE (Deltasone) tablet 30 mg, 30 mg, Oral, Daily, 30 mg at 01/20/25 0808 FOLLOWED BY predniSONE (Deltasone) tablet 20 mg, 20 mg, Oral, Daily, 20 mg at 01/22/25 0807 FOLLOWED BY [START ON 01/24/2025] predniSONE (Deltasone) tablet 10 mg, 10 mg, Oral, Daily, Srini Pires MD QUEtiapine (SEROquel) tablet 50 mg, 50 mg, Oral, Nightly PRN, Clemente Lynn MD, 50 mg at 01/21/252033 senna-docusate sodium (Senokot-S) 8.6-50 MG tablet 1 tablet, 1 tablet, Oral, BID, Ruth العراقي MD, 1 tablet at 01/22/25807 sodium chloride 3 % hypertonic nebulizer solution 4 mL, 4 mL, Nebulization, BID, Srini Pires MD, 4 mL at 01/22/25 09 [3] PRN medications: acetaminophen, albuterol, hydrOXYzine pamoate, methocarbamol, naloxone, ondansetron ODT OR ondansetron, oxyCODONE, QUEtiapine [4] Patient Active Problem List Diagnosis Poor venous access Other specified complication of vascular prosthetic devices, implants and grafts, initial encounter Other chronic pain COPD (chronic obstructive pulmonary disease) ([facility]) DDD (degenerative disc disease), cervical Leukocytosis Malignant neoplasm of exocervix ([facility]) Moderate malnutrition (CMS/HCC) ([facility]) Recurrent major depression Pulmonary nodule S/P hysterectomy Sciatica Shortness of breath Supplemental oxygen dependent PNA (pneumonia) H/O: CVA (cerebrovascular accident) Former smoker Nondisplaced fracture of neck of left femur ([facility]) Lumbar compression fracture, closed, initial encounter ([facility]) Severe malnutrition (CMS/HCC) ([facility]) Falls frequently Unintentional weight loss Debility PFO (patent foramen ovale) ([facility]/HCC) Adult failure to thrive Anxiety and depression Cognitive deficits At risk for delirium COPD exacerbation ([facility]) Nutrition Assessment Type and Reason for Visit: Reassess Nutrition Recommendations/Plan: Continue Regular Diet Encourage patient to participate in room service and order well balanced meals, please document all oral intake in EMR for most accurate nutrient intake assessment Per MNT protocol, discontinue ONS Please obtain bi-weekly standing scale weights for most accurate anthropometric data and calculation of macronutrient and fluid needs RDN to continue to monitor weekly: fluid accumulation, weight, skin integrity, trends in lab values, tolerance of PO, clinical status, discharge planning. 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 +MRSA PCR for MSSA. Admitted to ICU for NIV support, she was weaned off NIV on 01/14, and transferred to [facility]. Pulmonology consulted and supporting +4 L O2 via NC. Geriatrics and palliative care consulted and supporting. Will completed day 10 of Cefepime today. Pending discharge back to [facility]- awaiting [facility] for skilled rehab as she is resident of LT. Pleasant and interactive, sitting up in bed at time of assessment. Appetite intact, denies: pain, nausea, GI distress. Noted nine Ensure shakes at bedside, agreeable to discontinuing at this time. Additionally, reports she does not like Magic Cup ONS- discontinued as well. No nutrition concerns. Estimated Daily Nutrient Needs: Energy Requirements Based On: Kcal/kg Weight Used for Energy Requirements: Current Weight for Energy Calculation (kg): 48 kg Total Energy Requirements (kcals/day): 0478-1412 kcals (30-35 kcals/kg) Weight Used for Protein Requirements: Current Weight in Kg Used for Protein Requirements: 48 kg Estimated Total Protein (g/day): 58-77g (1.2-1.6g/kg) Estimated Daily Total Fluid (ml/day): 1440 ml/day or per MD Nutrition Related Findings: A+Ox4. +4 L O2 via NC (baseline 3-4 L O2). +bm 01/18, PO 100%. No skin break down or edema noted. Completing ABX today. Meds and labs reviewed. Wound Type: None Current Nutrition Therapies: Adult diet Regular Current Oral Intake Average Meal Intake: 76-100% Average Supplements Intake: 26-50% Anthropometric Measures: Height: 162.6 cm (5' 4") Current Body Weight: 48.2 kg (106 lb 3.2 oz) Weight Source: Not Specified Admission Body Weight: 47.6 kg (105 lb) Usual Body Weight: 42.3 kg (93 lb 3.2 oz) (per EMR --> 89.5# 07/30/24; 93.2# 08/20/24) % Weight Change (Calculated): 13.9 Upper Tract Body Weight (lbs) (Calculated): 120 lbs Upper Tract Body Weight (Kg) (Calculated): 55 kg % [place] Tract Body Weight (Calculated): 88.5 % BMI (kg/m2) (Calculated): 18.2 Weight Adjustment For: No Adjustment BMI Categories: Underweight (BMI less than 22) age over 65 Nutrition Diagnosis: Moderate malnutrition related to inadequate protein-energy intake, impaired respiratory function, catabolic illness, increase demand for energy/nutrients as evidenced by moderate loss of subcutaneous fat, moderate muscle loss Nutrition Interventions: Nutrition Education/Counseling: Education not indicated Coordination of Nutrition Care: Continue to monitor while inpatient Plan of Care discussed with: patient Goals: Previous Goal Met: Progressing toward Goal(s) Goals: PO intake 75% or greater, by next RD assessment Nutrition Monitoring and Evaluation: Behavioral-Environmental Outcomes: None Identified Food/Nutrient Intake Outcomes: Food and Nutrient Intake Physical Signs/Symptoms Outcomes: Biochemical Data, Chewing or Swallowing, GI Status, Hemodynamic Status, Fluid Status or Edema, Nutrition Focused Physical Findings, Skin, Weight, Nausea or Vomiting Discharge Planning: Continue current diet Celeste Garcia RDN, LDN, Contact: [phone] Images from the original note were not included. PHYSICAL THERAPY [facility] Treatment Note Name/MRN: Gonzalo Deluca ([id number]) Date of : 1955 Age: 69 y.o. Room/Bed: B4-450/B4450 A Visit #: 2 out of 5 Discharge Recommendation: ECF with PT Equipment Needed: No Prior Level of Function Prior Level of ADL Function: Independent Prior Level of Mobility: Required Assist; Device: Front wheeled walker and Wheelchair - manual Prior Level of Transfers: Independent Assessment Pt demos continued improvement in functional mobility and progress toward therapy goals. Pt is currently mod I for bed mobility, SUP to mod I for functional transfers, SBA for ambulation with FWW. Pt able to progress ambulation distance this session and improvement in O2 saturation following ambulation. Pt will continue to benefit from acute skilled PT to address current deficits. Recommend return to ECF with PT. Subjective Pt pleasant and agreeable to therapy session Pain: Pt denies any current pain. Medical Precautions: No active isolations Proper PPE donned/doffed in accordance with facility standards. Fall Risk: Webb Fall Risk Score: 50 (Medium Risk) Webb Fall Risk Score: 50 (High Risk) Precautions/Restrictions: N/A Overall Cognitive Status: WFL Overall Orientation Status: Oriented x4 Family/Caregiver Present: none Objective Bed Mobility Supine to sit: Modified Independent Pt completes bed mobility at mod I with HOB elevated. Pt completes without difficulty. Transfers/Mobility Sit to stand: Modified Independent Stand to sit: Modified Independent, Supervision X2 from EOB to FWW. Pt completes initially at mod I with good hand placement however with additional trial, pt requires SUP with cues for hand placement. Device(s) used: Front wheeled walker Ambulation Ambulation 1 Assistive device(s) used: Front wheeled walker Assist level: SBA Distance (ft): ~70 feet x1 Quality of gait: No LOB, reciprocal stepping, slow lauren Pt demos short, reciprocal gait pattern, decreased gait speed. Pt requires SBA with cues provided for upright posture, maintain SADIE within FWW, pursed lip breathing. SpO2 83-84% following ambulation increasing to >90% after ~2 minutes seated rest break on 4L O2 NC. Increased time to complete ambulation trial. Balance During Session: Posture: good Sitting - Static: Independent Sitting - Dynamic: Independent Standing - Static: Supervision Standing - Dynamic: Supervision, SBA Plan Continue acute PT per plan of care. Safety/Education Safety Safety Devices in place: All fall risk precautions in place, call light within reach, gait belt, patient at risk for falls, nurse notified, no alarms engaged upon entry, and patient left sitting EOB Restraints: N/A Education Education Given To: patient Education Provided: PT Role, PT Goals, Gait Training, Plan of Care, Transfer Training, Energy Conservation, Equipment, Discharge Recommendations, Benefits of Increasing Activity, and Breathing Techniques Education Method: Verbal and Demonstration Barriers to Learning: None Education Outcome: Verbalized Understanding, Demonstrated Understanding, and Continued Education Needed Outcome Measures AM-PAC AM-PAC Inpatient Mobility Raw Score (No Stairs) : 19 JH-HLM JH-HLM Scale: Walked 25 ft or more (i.e. walked outside of room) Goals Patient Stated Goal: to go back to ECF Encounter Problems Encounter Problems (Active) Balance Patient will maintain dynamic standing balance for 5 minutes with supervision in order to demonstrate decreased risk of falling. (Progressing) Start: 01/19/25 Expected End: 01/26/25 Exercise Patient will complete lower extremity exercises for 1-2 sets / 5-10 reps in order to improve strength and activity tolerance for mobility. (Not Addressed) Start: 01/19/25 Expected End: 01/26/25 Standing exercise Mobility Patient will ambulate 150 feet with modified independence and rolling walker in order to improve safety and independence with mobility. (Progressing) Start: 01/19/25 Expected End: 01/26/25 PT Misc Misc: Pt will independently demo 2 energy conservation techniques to improve activity tolerance and functional mobility (Progressing) Start: 01/19/25 Expected End: 01/26/25 Transfers Patient will complete functional transfer with rolling walker with modified independence in order to prepare for ambulation. (Progressing) Start: 01/21/25 Expected End: 01/26/25 Therapy Time Individual Co-treatment Time In 1019 Time Out 1030 Minutes 11 Timed Code Treatment Minutes: 9 Minutes (gait x1) Greer Delarosa PT Hospitalist Progress Note 01/21/202505/2024-1900: Please page me [phone]) for patient care issues. [phone]: Please page [facility] night Hospitalist for any issues. Subjective: Admit Date: 01/12/2025 PCP: HERMINIA CASE MD Room#: B4450/B4450 A Interval History: No overnight issues. Denies chest pain or sob today and continues to do very good clinically. Does NOT look sob laying in bed. She denies any abdominal pain, nausea, vomiting. No fevers or chills. Denies any new complaints. Adult diet Regular @[id number]@ 24HR INTAKE/OUTPUT: No intake or output data in the 24 hours ending 01/21/25 1001 Past Medical History: Medical History[1] LABS: CBC: Recent Labs 01/19/25 005 WBC 8.3 RBC 3.83 HGB 11.0* HCT 36.5 MCV 95.3 RDW 14.0 PLT 252 BMP: Recent Labs 01/19/2551 NA 142 K 3.9 CL 101 CO2 32* BUN 20 CREATININE 0.58 GLUCOSE 136* CALCIUM 8.5* ANIONGAP 9 LIVER PROFILE:No results for input(s): "AST", "ALT", [...] the last 72 hours. Objective: Vitals: BP 99/72 (BP Location: Left arm, Patient Position: Lying) Pulse 95 Temp 36.1 C (96.9 F) (Temporal) Resp 18 Ht 5' 4" (1.626 m) Wt 106 lb 3.2 oz (48.2 kg) SpO2 93% BMI 18.23 kg/m Pulse Ox: SpO2 Av % Min: 93 % Max: 96 % Supplemental O2: O2 Flow Rate (L/min): 4 L/min General appearance: No apparent distress, appears stated age, HEENT: Eyes: No scleral icterus Oral: Tongue is semi-moist Cardiovascular: S1/S2 heard, RRR Respiratory: decreased BS throughout but clear and no wheezing Abdomen: Soft, non-tender, non-distended bowel sounds positive Musculoskeletal: No obvious deformities seen Skin: No visible rashes or lesions. Medications: Continuous Meds[2] Scheduled Meds[3] Assessment Acute, acute on chronic, unstable/uncontrolled chronic problems/diagnoses: # Acute on chronic hypoxic and hypercarbic respiratory failure- 2/2 AECOPD, bronchiectasis exacerbation. Off NIV. Now weaned to 5L supplemental O2 today (4L baseline) and with severe dyspnea on minimal movement. Pulmonary following. On tapered steroids and breathing tx # Acute respiratory acidosis due to above - resolved and is off NIV (was on NIV in ICU) # Acute exacerbation of COPD with underlying advanced Emphysema - likely infectious etiology. On prednisone taper, duonebs and Dulera. Continue Cefepime as recommended per Pulmonary. On PRN oxycodone for dyspnea per palliative care. # Bronchiectasis with acute lower respiratory infection with Pseudomonas - has hx of pseudomonas in past. PNA PCR positive here again as well for PSA. Continue Cefepime as recommended per pulm/crit. Plan 7-14 day antibiotic course depending on clinical response per pulmonary. Continue hypertonic saline and mucinex for pulmonary toilet in setting of infection and mucous plugging. 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 # Acute metabolic encephalopathy due to hypercarbia/hypoxia. Resolved with improved respiratory status. 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 Confirmed with pulmonary, they recommend 10 days total treatment for the Pseudomonas but states she can go home on p.o. antibiotics if it is sensitive to p.o. antibiotics, however sensitivity is still pending. Today is actually day 10/10 of Cefepime (last day of antibx). [facility] and recommended SNF. She will need authorization to go back to the skilled portion of [facility]. - Continue pulmonary toilet as per pulmonary with hypertonic saline and Mucinex - Continue tapered prednisone and breathing treatments as recommended per pulmonary - Pulmonary following - Geriatrics following - Palliative care following - Continue nasal cannula oxygen, wean as able back to baseline - Check daily labs Discharge barrier: Sputum sensitivity for the Pseudomonas (however likely won't need antibx on discharge as today is last day of Cefepime) as well as authorization to go to skilled portion of [facility] Extended Emergency Contact Information Primary Emergency Contact: Karishma Deluca Address: [address] [place] [address] [place] [address] [facility] Mobile Relation: Daughter Secondary Emergency Contact: Jace Deluca Mobile Relation: Darshan Walker MD Division of Hospitalist Medicine Inpatient Medical Services/[facility] PAGER: Epic chat [1] Past Medical History: Diagnosis Date Abnormal stress test Acute exacerbation of chronic obstructive pulmonary disease (HCC) 04/12/2018 Allergic rhinitis 1955 Arthritis Asthma ([facility]/HCC) Bronchitis Cancer (HCC) skin Cervical cancer (HCC) Chest pain COPD (chronic obstructive pulmonary disease) (HCC) USE OXYGEN 3 L AT NIGHT DDD (degenerative disc disease), cervical Defect, retina, with detachment right DJD (degenerative joint disease), lumbar Emphysema lung (HCC) Former smoker Hematuria SCHEDULED FOR THE PROCEDURE /SURGERY ON 02/11/2017 Hypokalemia Lung nodules Near syncope 09/19/2023 Osteoporosis Palpitations Pneumonia [id number] Recurrent major depression Sciatica Thoracic compression fracture (HCC) Vitamin D deficiency [2] [3] aspirin, 81 mg, Oral, Daily buPROPion XL, 150 mg, Oral, Daily busPIRone, 15 mg, Oral, BID cefepime, 2,000 mg, IntraVENous, q8h cholecalciferol, 2,000 Units, Oral, Daily Diclofenac Sodium, 2 g, Topical, BID enoxaparin, 40 mg, SubCUTAneous, Daily fluticasone, 2 spray, Each Nostril, Daily folic acid, 1 mg, Oral, Daily guaiFENesin, 600 mg, Oral, BID influenza, 0.5 mL, IntraMUSCular, Prior to discharge ipratropium-albuterol, 3 mL, Nebulization, TID melatonin, 3 mg, Oral, Nightly mirtazapine, 15 mg, Oral, Nightly mometasone-formoterol, 2 puff, Inhalation, BID montelukast, 10 mg, Oral, Nightly pantoprazole, 40 mg, Oral, q AM predniSONE, 20 mg, Oral, Daily Followed by [START ON 01/24/2025] predniSONE, 10 mg, Oral, Daily senna-docusate sodium, 1 tablet, Oral, BID sodium chloride, 4 mL, Nebulization, BID Images from the original note were not included. [facility], Pulmonary Medicine [address] [place] [id number] Patient - Gonzalo Deluca, Age - 69 y.o. - 1955 Room Number - B4-450/[id number] A Consulting - Austin Walker MD Primary Care Physician - [id number] Date of Admission - 01/12/2025 9:18 AM Hospital Day - 9 Chief Complaint: Gonzalo Deluca is a 69 y.o. female who pulmonary is following for COPD AE, acute hypoxic respiratory failure, bronchiectasis, hospital follow up Subjective/Interval History: Patient awake sitting up in bed. Denied any shortness of breath at rest, cough, chest pain, fever or chills this morning. On 4 liters NC. No new overnight concerns. A pertinent review of systems was performed and was otherwise non-contributory except as detailed in Subjective section above. Objective: Vitals: BP 99/72 (BP Location: Left arm, Patient Position: Lying) Pulse 95 Temp 36.1 C (96.9 F) (Temporal) Resp 15 Ht 5' 4" (1.626 m) Wt 106 lb 3.2 oz (48.2 kg) SpO2 94% BMI 18.23 kg/m Pulse Ox: SpO2 Av.1 % Min: 93 % Max: 96 % Supplemental O2: O2 Flow Rate (L/min): 4 L/min I/O 24HR INTAKE/OUTPUT: No intake or output data in the 24 hours ending 01/21/25 0829 Physical Exam: Physical Exam Vitals and nursing note reviewed. Constitutional: General: She is not in acute distress. HENT: Nose: No congestion or rhinorrhea. Eyes: General: No scleral icterus. Right eye: No discharge. Left eye: No discharge. Cardiovascular: Rate and Rhythm: Normal rate and regular rhythm. Pulmonary: Effort: No respiratory distress. Breath sounds: No stridor. No wheezing, rhonchi or rales. Musculoskeletal: Right lower leg: No edema. Left lower leg: No edema. Skin: General: Skin is warm. Coloration: Skin is not jaundiced. Neurological: Mental Status: She is alert and oriented to person, place, and time. Mental status is at baseline. Psychiatric: Mood and Affect: Mood normal. Behavior: Behavior normal. Medications: Allergies[1] Current Medications[2] PRN Meds[3] Labs: CBC: Recent Labs 01/19/25 005 WBC 8.3 HGB 11.0* HCT 36.5 PLT 252 MCV 95.3 RDW 14.0 BMP: Recent Labs 01/19/25 0052 NA 142 K 3.9 CL 101 CO2 32* BUN 20 CREATININE 0.58 CALCIUM 8.5* Glucose: Recent Labs 01/19/25 0052 GLUCOSE 136* ABGs: No results for input(s): "PHART", "QXK7OBR", "PO2ART", "NWP3QCB", "SO2ART", "H2MVSIWZ" in the last 72 hours. Microbiology: COVID/Flu/RSV: Negative Respiratory pathogens PCR: Negative Urine antigens: Negative Blood cultures: NGTD MRSA PCR: + Staph aureus, negative mecA gene Respiratory culture: Rare Pseudomonas aeruginosa Pneumonia PCR panel: + Pseudomonas aeruginosa Imaging/ Testing: CXR 01/13/25: FINDINGS: LUNGS AND PLEURAL SPACES: COPD, unchanged. Coarse bilateral interstitial lung markings. No consolidation. No pneumothorax. HEART: Unremarkable. No cardiomegaly. MEDIASTINUM: Unremarkable. Normal mediastinal contour. BONES/JOINTS: Thoracic degenerative spondylosis. No acute fracture. TUBES, LINES AND DEVICES: Left IJ MediPort catheter tip overlies mid SVC, unchanged. IMPRESSION: Emphysema, unchanged. Parenchymal fibrotic changes. Left subclavian MediPort, unchanged Problem List[4] Assessment and Plan/Recommendations: Acute on chronic hypoxic & hypercarbic respiratory failure -Secondary to COPD AE and bronchiectasis exacerbation -Improved. Weaned down to 4 liters NC. Baseline 3-4 liters at home. -Maintain SpO2 > 88% COPDAE/ Advanced emphysema -Continue Dulera and scheduled DuoNeb's. Resume Breo and Spiriva at discharge -Continue prednisone -PRN oxycodone for dyspnea per palliative care -COPD navigator following -PFT's scheduled 02/25 Bronchiectasis with concern for acute LRTI, + Pseudomonas aeruginosa -Prior CT chest in November with diffuse bronchiectasis, mucus plugging. Hx pseudomonas in the past. -Pneumonia PCR and sputum culture + for Pseudomonas aeruginosa. On Cefepime. Plan for 10 day course antibiotics. Can discontinue after today's dose. 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 Counseled on smoking cessation and advised to quit smoking completely. Declined NRT Advance Directive: DNR-CCA Discharge planning: Okay to discharge back to [facility] today after antibiotics. Hospital follow up scheduled with Sofia LISA on 02/06/25 Case discussed with nurse and patient Questions and concerns addressed. [1] Allergies Allergen Reactions Pollen Extract Unknown [2] Current Facility-Administered Medications: acetaminophen (Tylenol) tablet 650 mg, 650 mg, Oral, q6h PRN, Clemente Lynn MD, 650 mg at 01/20/25 0142 albuterol (2.5 MG/3ML) 0.083% nebulizer solution 2.5 mg, 2.5 mg, Nebulization, q2h PRN, Clemente Lynn MD aspirin EC tablet 81 mg, 81 mg, Oral, Daily, Clemente Lynn MD, 81 mg at 01/21/25 0829 buPROPion XL (Wellbutrin XL) 24 hr tablet 150 mg, 150 mg, Oral, Daily, Clemente Lynn MD, 150 mg at 01/21/25 08 busPIRone (Buspar) tablet 15 mg, 15 mg, Oral, BID, Clemente Lynn MD, 15 mg at 01/21/25828 cefepime (Maxipime) 2,000 mg in sodium chloride 0.9 % 50 mL IVPB Mini-Bag Plus, 2,000 mg, IntraVENous, q8h, Clemente Lynn MD, Last Rate: 12.5 mL/hr at 01/21/25 08, 2,000 mg at 01/21/25 08 cholecalciferol (Vitamin D-3) tablet 2,000 Units, 2,000 Units, Oral, Daily, Saad Telles APRN - MOTION PICTURE SET GRIP, 2,000 Units at 01/20/25 08 Diclofenac Sodium (Voltaren) 1 % gel 2 g, 2 g, Topical, BID, Austin Walker MD, 2 g at 01/20/25 08 enoxaparin (Lovenox) syringe 40 mg, 40 mg, SubCUTAneous, Daily, Clemente Lynn MD, 40 mg at 01/21/25828 fluticasone (Flonase) nasal spray 2 spray, 2 spray, Each Nostril, Daily, Srini Pires MD, 2 spray at 01/20/25 08 folic acid (Folvite) tablet 1 mg, 1 mg, Oral, Daily, Clemente Lynn MD, 1 mg at 01/21/25828 guaiFENesin (Mucinex) 12 hr tablet 600 mg, 600 mg, Oral, BID, Srini Pires MD, 600 mg at 01/21/25 08 hydrOXYzine pamoate (Vistaril) capsule 25 mg, 25 mg, Oral, q12h PRN, Austin Walker MD, 25 mg at 01/20/25 181 influenza vaccine A&B surf ant adjuvanted (Fluad) HIGH-DOSE injection 0.5 mL, 0.5 mL, IntraMUSCular, Prior to discharge, Clemente Lynn MD ipratropium-albuterol (Duo-Neb) 0.5-2.5 mg/3 mL nebulizer solution 3 mL, 3 mL, Nebulization, TID, Clemente Lynn MD, 3 mL at 01/20/251947 melatonin tablet 3 mg, 3 mg, Oral, Nightly, Clemente Lynn MD, 3 mg at 01/20/251940 methocarbamol (Robaxin) tablet 500 mg, 500 mg, Oral, q8h PRN, Srini Pires MD, 500 mg at 01/19/252101 mirtazapine (Remeron) tablet 15 mg, 15 mg, Oral, Nightly, Clemente Lynn MD, 15 mg at 01/20/251940 mometasone-formoterol (Dulera 100) 100-5 MCG/ACT inhaler 2 puff, 2 puff, Inhalation, BID, Srini Pires MD, 2 puff at 01/20/251943 montelukast (Singulair) tablet 10 mg, 10 mg, Oral, Nightly, Clemente Lynn MD, 10 mg at 01/20/251940 naloxone (Narcan) injection 0.4 mg, 0.4 mg, IntraVENous, q5 min PRN, Clemente Lynn MD ondansetron ODT (Zofran-ODT) disintegrating tablet 4 mg, 4 mg, Oral, q8h PRN, 4 mg at 01/18/25 1016 OR ondansetron (Zofran) injection 4 mg, 4 mg, IntraVENous, q6h PRN, Clemente Lynn MD, 4 mg at 01/12/252038 oxyCODONE (Roxicodone) immediate release tablet 15 mg, 15 mg, Oral, q6h PRN, Ruth العراقي MD, 15 mg at 01/21/25827 pantoprazole (ProtoNix) EC tablet 40 mg, 40 mg, Oral, q AM, Clemente Lynn MD, 40 mg at 01/21/25 0828 [COMPLETED] predniSONE (Deltasone) tablet 40 mg, 40 mg, Oral, Daily, 40 mg at 01/17/25 1020 FOLLOWED BY [COMPLETED] predniSONE (Deltasone) tablet 30 mg, 30 mg, Oral, Daily, 30 mg at 01/20/25 0808 FOLLOWED BY predniSONE (Deltasone) tablet 20 mg, 20 mg, Oral, Daily, 20 mg at 01/21/25 0828 FOLLOWED BY [START ON 01/24/2025] predniSONE (Deltasone) tablet 10 mg, 10 mg, Oral, Daily, Srini Pires MD QUEtiapine (SEROquel) tablet 50 mg, 50 mg, Oral, Nightly PRN, Clemente Lynn MD, 50 mg at 01/20/252137 senna-docusate sodium (Senokot-S) 8.6-50 MG tablet 1 tablet, 1 tablet, Oral, BID, Ruth العراقي MD, 1 tablet at 01/20/251940 sodium chloride 3 % hypertonic nebulizer solution 4 mL, 4 mL, Nebulization, BID, Srini Pires MD, 4 mL at 01/20/251947 [3] PRN medications: acetaminophen, albuterol, hydrOXYzine pamoate, methocarbamol, naloxone, ondansetron ODT OR ondansetron, oxyCODONE, QUEtiapine [4] Patient Active Problem List Diagnosis Poor venous access Other specified complication of vascular prosthetic devices, implants and grafts, initial encounter Other chronic pain COPD (chronic obstructive pulmonary disease) (HCC) DDD (degenerative disc disease), cervical Leukocytosis Malignant neoplasm of exocervix (HCC) Moderate malnutrition (CMS/HCC) (HCC) Recurrent major depression Pulmonary nodule S/P hysterectomy Sciatica Shortness of breath Supplemental oxygen dependent PNA (pneumonia) H/O: CVA (cerebrovascular accident) Former smoker Nondisplaced fracture of neck of left femur (HCC) Lumbar compression fracture, closed, initial encounter (HCC) Severe malnutrition (CMS/HCC) (HCC) Falls frequently Unintentional weight loss Debility PFO (patent foramen ovale) (HHS/HCC) Adult failure to thrive Anxiety and depression Cognitive deficits At risk for delirium COPD exacerbation ([facility]) Hospitalist Progress Note 01/20/[id number]: Please page me ([phone]) for patient care issues. [phone]: Please page [facility] Hospitalist for any issues. Subjective: Admit Date: 01/12/2025 PCP: HERMINIA CASE MD Room#: M7-980/Q3-351 A Interval History: No overnight issues. Denies chest pain or sob today and states she is still breathing fine today and feels like she is at her baseline. Does NOT look sob laying in bed. She denies any abdominal pain, nausea, vomiting. No fevers or chills. Denies any new complaints. Clinically looks good. Adult diet Regular @[id number]@ 24HR INTAKE/OUTPUT: Intake/Output Summary (Last 24 hours) at 01/20/2025 1210 Last data filed at 01/19/2025 1804 Gross per 24 hour Intake 720 ml Output -- Net 720 ml Past Medical History: Medical History[1] LABS: CBC: Recent Labs 01/18/2554401/19/2551 WBC 8.1 8.3 RBC 3.94 3.83 HGB 11.5* 11.0* HCT 37.5 36.5 MCV 95.2 95.3 RDW 13.8 14.0 PLT 252 252 BMP: Recent Labs 01/18/2554401/19/2551 NA 143 142 K 3.1* 3.9 CL 111* 101 CO2 29 32* BUN 17 20 CREATININE 0.45* 0.58 GLUCOSE 85 136* CALCIUM 6.7* 8.5* ANIONGAP 3 9 LIVER PROFILE:No results for input(s): "AST", "ALT", [...] the last 72 hours. Objective: Vitals: BP 123/76 Pulse 94 Temp 36.8 C (98.3 F) (Temporal) Resp 17 Ht 5' 4" (1.626 m) Wt 107 lb 8 oz (48.8 kg) SpO2 93% BMI 18.45 kg/m Pulse Ox: SpO2 Av.5 % Min: 92 % Max: 95 % Supplemental O2: O2 Flow Rate (L/min): 4 L/min General appearance: No apparent distress, appears stated age, HEENT: Eyes: No scleral icterus Oral: Tongue is semi-moist Cardiovascular: S1/S2 heard, RRR Respiratory: decreased BS throughout but clear and no wheezing Abdomen: Soft, non-tender, non-distended bowel sounds positive Musculoskeletal: No obvious deformities seen Skin: No visible rashes or lesions. Medications: Continuous Meds[2] Scheduled Meds[3] Assessment Acute, acute on chronic, unstable/uncontrolled chronic problems/diagnoses: # Acute on chronic hypoxic and hypercarbic respiratory failure- 2/2 AECOPD, bronchiectasis exacerbation. Off NIV. Now weaned to 5L supplemental O2 today (4L baseline) and with severe dyspnea on minimal movement. Pulmonary following. On tapered steroids and breathing tx # Acute respiratory acidosis due to above - resolved and is off NIV (was on NIV in ICU) # Acute exacerbation of COPD with underlying advanced Emphysema - likely infectious etiology. On prednisone taper, Bulmaro. Continue Cefepime as recommended per Pulmonary. On PRN oxycodone for dyspnea per palliative care. # Bronchiectasis with acute lower respiratory infection with Pseudomonas - has hx of pseudomonas in past. PNA PCR positive here again as well for PSA. Continue Cefepime as recommended per pulm/crit. Plan 7-14 day antibiotic course depending on clinical response per pulmonary. Continue hypertonic saline and mucinex for pulmonary toilet in setting of infection and mucous plugging. 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 # Acute metabolic encephalopathy due to hypercarbia/hypoxia. Resolved with improved respiratory status. 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 Confirmed with pulmonary, they recommend 10 days total treatment for the Pseudomonas but states she can go home on p.o. antibiotics if it is sensitive to p.o. antibiotics which again sputum culture still pending. Otherwise they have already cleared for discharge this weekend once sputum culture comes back and if it shows sensitivity to the p.o. antibiotics for the Pseudomonas. Also pulmonary took care of the pulmonary medications for discharge as well. Sensitivity is still pending. Today is day 9/10 of Cefepime. Regardless, she is actually from [facility]. PT OT saw and recommended SNF. She per case management's DVT, she will need authorization to go back to the skilled portion of [facility]. - Continue pulmonary toilet as per pulmonary with hypertonic saline and Mucinex - Continue tapered prednisone and breathing treatments as recommended per pulmonary - Pulmonary following - Geriatrics following - Palliative care following - Continue nasal cannula oxygen, wean as able back to baseline - Check daily labs Discharge barrier: Sputum sensitivity for the Pseudomonas as well as authorization to go to skilled portion of [facility] Extended Emergency Contact Information Primary Emergency Contact: Karishma Deluca [address]: [address] [place] [address] [place] [phone] [facility] Relation: Daughter Secondary Emergency Contact: Jace Deluca Mobile Relation: Darshan Austin Walker MD Division of Hospitalist Medicine Inpatient Medical Services/[facility] PAGER: Epic chat [1] Past Medical History: Diagnosis Date Abnormal stress test Acute exacerbation of chronic obstructive pulmonary disease (HCC) 04/12/2018 Allergic rhinitis 1955 Arthritis Asthma ([facility]/HCC) Bronchitis Cancer (HCC) skin Cervical cancer (HCC) Chest pain COPD (chronic obstructive pulmonary disease) ([facility]) USE OXYGEN 3 L AT NIGHT DDD (degenerative disc disease), cervical Defect, retina, with detachment right DJD (degenerative joint disease), lumbar Emphysema lung (HCC) Former smoker Hematuria SCHEDULED FOR THE PROCEDURE /SURGERY ON 02/11/2017 Hypokalemia Lung nodules Near syncope 09/19/2023 Osteoporosis Palpitations Pneumonia [id number] Recurrent major depression Sciatica Thoracic compression fracture ([facility]) Vitamin D deficiency [2] [3] aspirin, 81 mg, Oral, Daily buPROPion XL, 150 mg, Oral, Daily busPIRone, 15 mg, Oral, BID cefepime, 2,000 mg, IntraVENous, q8h cholecalciferol, 2,000 Units, Oral, Daily Diclofenac Sodium, 2 g, Topical, BID enoxaparin, 40 mg, SubCUTAneous, Daily fluticasone, 2 spray, Each Nostril, Daily folic acid, 1 mg, Oral, Daily guaiFENesin, 600 mg, Oral, BID influenza, 0.5 mL, IntraMUSCular, Prior to discharge ipratropium-albuterol, 3 mL, Nebulization, TID melatonin, 3 mg, Oral, Nightly mirtazapine, 15 mg, Oral, Nightly mometasone-formoterol, 2 puff, Inhalation, BID montelukast, 10 mg, Oral, Nightly pantoprazole, 40 mg, Oral, q AM [START ON 01/21/2025] predniSONE, 20 mg, Oral, Daily Followed by [START ON 01/24/2025] predniSONE, 10 mg, Oral, Daily senna-docusate sodium, 1 tablet, Oral, BID sodium chloride, 4 mL, Nebulization, BID Images from the original note were not included. OCCUPATIONAL THERAPY [facility] Initial Evaluation Name/MRN: Gonzalo Deluca ([id number]) Evaluation Date: 01/20/2025 Date of : 1955 Admission Date: 01/12/2025 9:18 AM Age: 69 y.o. Room/Bed: [facility]450/B4450 A Discharge Recommendation: ECF with OT Equipment Needed: No Assessment IMPRESSION: Pt in 01/12 with c/o COPDe and encephalopathy. She was previously IND for ADLs, functional transfers and reports being able to ambulate ~ 1/2 distance of the hallway pushing a w/c for support in the ECF before needing to sit. She is currently IND for bed mobility and MOD I for transfers, SBA For mobility with a w/c, and SBA for LB ADLS. She is limited by increased fatigue at this time with SpO2 noted to remain WFL despite SOB on 5L O2 n.c. throughout. She would benefit from skilled OT services to improve her independence. Recommend planned discharge for OT on return to ECF. Admitting Diagnosis: COPDe, respiratory failure, encephalopathy. Performance Deficits /Impairments: Decreased Functional Mobility, Decreased ADL status, Decreased Endurance, Decreased Balance, and Decreased High Level IADLs Prognosis: Good Decision Making: Medium Complexity Subjective Pleasant and cooperative. OK to see per RN. Agreeable to therapy evaluation. Pain: Pt denies any current pain. Past Medical History: Medical History[1] Past Surgical History: Surgical History[2] Admission Diagnosis: Patient Active Problem List Diagnosis Date Noted COPD exacerbation ([facility]) 01/12/2025 Anxiety and depression 08/03/2024 Cognitive deficits 08/03/2024 At risk for delirium 08/03/2024 Severe malnutrition ([facility]) ([facility]) 07/31/2024 Adult failure to thrive 07/30/2024 Falls frequently 09/20/2023 Unintentional weight loss 09/20/2023 Debility 09/20/2023 PFO (patent foramen ovale) ([facility]) 09/20/2023 Lumbar compression fracture, closed, initial encounter ([facility]) 02/13/2023 Nondisplaced fracture of neck of left femur ([facility]) 11/06/2022 Other specified complication of vascular prosthetic devices, implants and grafts, initial encounter 08/06/2021 Moderate malnutrition ([facility]) ([facility]) 01/13/2025 Poor venous access 12/19/2019 H/O: CVA (cerebrovascular accident) 12/14/2019 Malignant neoplasm of exocervix ([facility]) 11/07/2019 S/P hysterectomy 11/07/2019 PNA (pneumonia) 08/02/2019 Leukocytosis 04/13/2018 Shortness of breath 04/13/2018 DDD (degenerative disc disease), cervical 04/12/2018 Recurrent major depression 04/12/2018 Other chronic pain 04/10/2017 COPD (chronic obstructive pulmonary disease) ([facility]) 04/10/2017 Pulmonary nodule 04/10/2017 Sciatica 04/10/2017 Supplemental oxygen dependent 04/10/2017 Former smoker 04/10/2017 Medical Precautions: No active isolations Proper PPE donned/doffed in accordance with facility standards. Fall Risk: Webb Fall Risk Score: 50 (Medium Risk) Webb Fall Risk Score: 50 (High Risk) Precautions/Restrictions: N/A Family/Caregiver Present: none Overall Cognitive Status: WFL Overall Orientation Status: Oriented x4 Social/Functional History Patient admitted from [facility]. Assistive Equipment: front wheeled walker and wheelchair - manual Prior Level of Function Prior Level of ADL Function: Independent Prior Level of Mobility: Required Assist; Device: Wheelchair - manual Prior Level of Transfers: Independent Objective ADLs LE Dressing: SBA Increased time required to complete all functional tasks. No true LOB noted during OOB activity at this time. She was able to demo figure 4 technique in sitting at EOB to adjust austin socks without assist. No true LOB during OOB activity, however increased reliance on w/c and environmental supports for stability at this time. She declines further participation in Adls this date. Bed Mobility Supine to sit: Modified Independent Sit to supine: Modified Independent Scooting: Modified Independent HOB elevated. Increased time to complete. Denies dizziness with positional changes. Increased reliance on bed rails to complete. No physical assist for BLE management or trunk control. Transfers/Mobility Sit to stand: Modified Independent Stand to sit: Modified Independent Functional mobility: SBA Pt completed sit<>stand transfer from EOB to no device with MOD I overall. No difficulty noted at this time with no LOB or c/o dizziness with positional changes. Good hand placement for push up from / reach back for seated surfaces noted at this time. She was able to complete short mobility into hallway while pushing w/c this date with SBA overall. No noted LOB this date or BLE buckling, however increased SOB and mild instability noted. SpO2 noted to remain WFL throughout the session. Increased time to complete. Device(s) used: Wheelchair - manual AM-PAC AM-PAC Inpatient Daily Activity Raw Score: 21 ADL Inpatient CMS G-Code Modifier: CJ Plan Pt would benefit from skilled acute OT services to address Strengthening, Balance Training, Self-Care/ADL Training, Functional Mobility Training, Endurance Training, Safety Education and Training, Home Management Training, and Patient/Caregiver Training Frequency: 3 visits during current hospital admission or until additional recommendations are made Barriers: Impaired balance, Lower extremity weakness, and Decreased endurance Safety/Education Safety Safety Devices in place: All fall risk precautions in place, call light within reach, left in bed, gait belt, patient at risk for falls, nurse notified, and no alarms engaged upon entry Restraints: No Education Education Given To: patient Education Provided: OT Role, Plan of Care, Equipment, Fall Prevention Education, Discharge Recommendations, and Benefits of Increasing Activity Education Method: Verbal, Demonstration, and Teach Back Barriers to Learning: None Education Outcome: Verbalized Understanding and Demonstrated Understanding Goals Patient Stated Goal: to return home. Encounter Problems Encounter Problems (Active) Dressings Lower Extremities Patient will dress lower body MOD I Start: 01/20/25 Expected End: 01/27/25 Mobility Patient will demonstrate functional mobility with MOD I and LRD Start: 01/20/25 Expected End: 01/27/25 Toileting Patient will complete toileting tasks at standard toilet with modified independence. Start: 01/20/25 Expected End: 01/27/25 Therapy Time Individual Co-Treatment Co-Evaluation Time In 0819 Time Out 0829 Minutes 10 Darius Worrell OT Patient's Occupational Therapy Plan of Care supervision is transferred to a [facility] Services Occupational Therapist. Goals and/or treatment plan was established in collaboration with patient/family/other representatives. [1] Past Medical History: Diagnosis Date Abnormal stress test Acute exacerbation of chronic obstructive pulmonary disease (HCC) 04/12/2018 Allergic rhinitis 1956 Arthritis Asthma ([facility]/HCC) Bronchitis Cancer (HCC) skin Cervical cancer (HCC) Chest pain COPD (chronic obstructive pulmonary disease) (HCC) USE OXYGEN 3 L AT NIGHT DDD (degenerative disc disease), cervical Defect, retina, with detachment right DJD (degenerative joint disease), lumbar Emphysema lung (HCC) Former smoker Hematuria SCHEDULED FOR THE PROCEDURE /SURGERY ON 02/11/2017 Hypokalemia Lung nodules Near syncope 09/19/2023 Osteoporosis Palpitations Pneumonia [id number] Recurrent major depression Sciatica Thoracic compression fracture ([facility]) Vitamin D deficiency [2] Past Surgical History: Procedure Laterality Date CYSTOSCOPY 01/12/2017 OFFICE PROCEDURE CYSTOSCOPY 02/11/2017 C&P bladder biopsy EYE SURGERY detached retina 1994 HYSTERECTOMY 11/06/2019 ABDOMINAL RADICAL HYSTERECTOMY WITH BSO AND PELVIC LYMPH; [facility] ZIYAD MENENDEZ [facility] OTHER SURGICAL HISTORY Left 12/19/2019 Med Port POWER Regular Size OTHER SURGICAL HISTORY Left 11/07/2022 Percutaneous skeltal fixation femoral fracture TUBAL LIGATION 1992 Images from the original note were not included. PHYSICAL THERAPY [facility] Treatment Note Name/MRN: Gonzalo Deluca ([id number]) Date of : 1955 Age: 69 y.o. Room/Bed: B4-450/B4-450 A Visit #: 1 out of 5 Discharge Recommendation: ECF with PT Equipment Needed: No Prior Level of Function Prior Level of ADL Function: Independent Prior Level of Mobility: Required Assist; Device: Front wheeled walker and Wheelchair - manual Prior Level of Transfers: Independent Assessment Pt continues to make good overall progress towards established therapy goals this date. Remains limited by SOB, decreased strength, endurance, mobility, and exercise tolerance. Pt completed bed mobility independently, STS transfers with FWW at MOD I, Gait training with FWW completed at SBA. Pt tolerated all activity well and gave good overall effort. Vitals noted below. Pt will continue to benefit from skilled therapy services during acute medical stay to improve upon presenting deficits prior to discharge ECF with PT. Subjective Pt in bed agreeable to PT Per RN pt okay for therapy. Pain: 0-10 pain scale: 6/10 Location: back Medical Precautions: No active isolations Proper PPE donned/doffed in accordance with facility standards. Fall Risk: Webb Fall Risk Score: 50 (Medium Risk) Webb Fall Risk Score: 50 (High Risk) Precautions/Restrictions: N/A Overall Cognitive Status: WFL Overall Orientation Status: Oriented x4 Family/Caregiver Present: none Objective Bed Mobility Supine to sit: Independent Sit to supine: Independent Patient able to get in and out of bed at this time independently. No safety concerns noted at this time. Patient denies dizziness with position changes. Transfers/Mobility Sit to stand: Modified Independent Stand to sit: Modified Independent Patient able to complete a STS transfer from EOB with mod I. FWW and use at this time. No buckling noted. No cueing required for hand placement. Device(s) used: Front wheeled walker Ambulation Ambulation 1 Assistive device(s) used: Front wheeled walker Assist level: SBA Distance (ft): 50 feet Quality of gait: No LOB Patient able to ambulate short distance at this time with an FWW. SBA required. Pt educated on walker proximity/ posture. Good carryover noted. No LOB seen. Patient was cued on paced breathing through the whole session. Patient had a desat after ambulation to 83% while on 4L O2. PT increased to 6L of O2, Patient able to recover to 94% within 30 seconds required cueing for breathing. Nursing notified. Pt remains in bed on 5L O2 at 93% SpO2. Balance During Session: Posture: fair Sitting - Static: Independent Sitting - Dynamic: Independent Standing - Static: Independent Standing - Dynamic: SBA Pt able to sit on EOB for about 4 minutes while completing breathing activities/ exercises. Exercises 1 X 12 quad sets BLE 1 X 12 ankle pumps BLE 1 X 12 glute sets Pt was able to complete exercises correctly with cueing required. Exercises were completed in order to help increase pts independence, increase strength, increase activity tolerance, while decreasing fatigue making it safer for pt to be able to return home. Plan Continue acute PT per plan of [...] of Care, Home Exercise Program, Transfer Training, Fall Prevention Education, Discharge Recommendations, and Benefits of Increasing Activity Education Method: Verbal and Demonstration Barriers to Learning: None Education Outcome: Verbalized Understanding and Demonstrated Understanding Outcome Measures AM-PAC AM-PAC Inpatient Mobility Raw Score (No Stairs) : 19 JH-HLM JH-HLM Scale: Walked 25 ft or more (i.e. walked outside of room) Goals Patient Stated Goal: to get better Encounter Problems Encounter Problems (Active) Balance Patient will maintain dynamic standing balance for 5 minutes with supervision in order to demonstrate decreased risk of falling. (Progressing) Start: 01/19/25 Expected End: 01/26/25 Exercise Patient will complete lower extremity exercises for 1-2 sets / 5-10 reps in order to improve strength and activity tolerance for mobility. (Progressing) Start: 01/19/25 Expected End: 01/26/25 Standing exercise Mobility Patient will ambulate 150 feet with modified independence and rolling walker in order to improve safety and independence with mobility. (Progressing) Start: 01/19/25 Expected End: 01/26/25 PT Misc Misc: Pt will independently demo 2 energy conservation techniques to improve activity tolerance and functional mobility (Not Addressed) Start: 01/19/25 Expected End: 01/26/25 Therapy Time Individual Co-treatment Time In 948 Time Out 1001 Minutes 12 Timed Code Treatment Minutes: 9 Minutes (gait X1) Teressa King, PT Hospitalist Progress Note 01/19/[id number]: Please page me ([phone]) for patient care issues. [phone]: Please page [facility] Hospitalist for any issues. Subjective: Admit Date: 01/12/2025 PCP: HERMINIA CASE MD Room#: B4-450/B4-450 A Interval History: No overnight issues. Denies chest pain or sob today and states she is still breathing good today. Does NOT look sob laying in bed. She denies any abdominal pain, nausea, vomiting. No fevers or chills. Adult diet Regular @[id number]@ 24HR INTAKE/OUTPUT: Intake/Output Summary (Last 24 hours) at 01/19/2025 1154 Last data filed at 01/19/2025 0950 Gross per 24 hour Intake 240 ml Output -- Net 240 ml Past Medical History: Medical History[1] LABS: CBC: Recent Labs 01/17/25 0506 01/18/25 0545 01/19/25 0052 WBC 7.1 8.1 8.3 RBC 3.77* 3.94 3.83 HGB 11.0* 11.5* 11.0* HCT 35.7 37.5 36.5 MCV 94.7 95.2 95.3 RDW 13.7 13.8 14.0 PLT 205 252 252 BMP: Recent Labs 01/17/25 0506 01/18/25 0545 01/19/25 0052 NA 141 143 142 K 3.3* 3.1* 3.9 CL 99 111* 101 CO2 37* 29 32* BUN 16 17 20 CREATININE 0.44* 0.45* 0.58 GLUCOSE 102 85 136* CALCIUM 8.1* 6.7* 8.5* ANIONGAP 5 3 9 LIVER PROFILE:No results for input(s): "AST", "ALT", [...] the last 72 hours. Objective: Vitals: BP 124/81 (BP Location: Left arm, Patient Position: Lying) Pulse 86 Temp 36.1 C (97 F) (Temporal) Resp 16 Ht 5' 4" (1.626 m) Wt 107 lb (48.5 kg) SpO2 94% BMI 18.37 kg/m Pulse Ox: SpO2 Av.4 % Min: 93 % Max: 94 % Supplemental O2: O2 Flow Rate (L/min): 4 L/min General appearance: No apparent distress, appears stated age, HEENT: Eyes: No scleral icterus Oral: Tongue is semi-moist Cardiovascular: S1/S2 heard, RRR Respiratory: decreased BS throughout but clear and no wheezing Abdomen: Soft, non-tender, non-distended bowel sounds positive Musculoskeletal: No obvious deformities seen Skin: No visible rashes or lesions. Medications: Continuous Meds[2] Scheduled Meds[3] Assessment Acute, acute on chronic, unstable/uncontrolled chronic problems/diagnoses: # Acute on chronic hypoxic and hypercarbic respiratory failure- 2/2 AECOPD, bronchiectasis exacerbation. Off NIV. Now weaned to 5L supplemental O2 today (4L baseline) and with severe dyspnea on minimal movement. Pulmonary following. On tapered steroids and breathing tx # Acute respiratory acidosis due to above - resolved and is off NIV (was on NIV in ICU) # Acute exacerbation of COPD with underlying advanced Emphysema - likely infectious etiology. On prednisone taper, Bulmaro. Continue Cefepime as recommended per Pulmonary. On PRN oxycodone for dyspnea per palliative care. # Bronchiectasis with acute lower respiratory infection with Pseudomonas - has hx of pseudomonas in past. PNA PCR positive here again as well for PSA. Continue Cefepime as recommended per pulm/crit. Plan 7-14 day antibiotic course depending on clinical response per pulmonary. Continue hypertonic saline and mucinex for pulmonary toilet in setting of infection and mucous plugging. 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 # Acute metabolic encephalopathy due to hypercarbia/hypoxia. Resolved with improved respiratory status. 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 Confirmed with pulmonary, they recommend 10 days total treatment for the Pseudomonas but states she can go home on p.o. antibiotics if it is sensitive to p.o. antibiotics which again sputum culture still pending. Otherwise they have already cleared for discharge this weekend once sputum culture comes back and if it shows sensitivity to the p.o. antibiotics for the Pseudomonas. Also pulmonary took care of the pulmonary medications for discharge as well. Spoke with micro today, they JUST set up the sens and it won't be back till tomorrow. - Continue pulmonary toilet as per pulmonary with hypertonic saline and Mucinex - Continue tapered prednisone and breathing treatments as recommended per pulmonary - Pulmonary following - Geriatrics following - Palliative care following - Continue nasal cannula oxygen, wean as able back to baseline - Check daily labs Extended Emergency Contact Information Primary Emergency Contact: Karishma Deluca Address: [address] [place] [address] [place] [phone] [facility] Mobile Relation: Daughter Secondary Emergency Contact: Jace Deluca Mobile Relation: Darshan Walker MD Division of Hospitalist Medicine Inpatient Medical Services/[facility] PAGER: Epic chat [1] Past Medical History: Diagnosis Date Abnormal stress test Acute exacerbation of chronic obstructive pulmonary disease (HCC) 04/12/2018 Allergic rhinitis 1955 Arthritis Asthma (HHS/HCC) Bronchitis Cancer (HCC) skin Cervical cancer (HCC) Chest pain COPD (chronic obstructive pulmonary disease) (HCC) USE OXYGEN 3 L AT NIGHT DDD (degenerative disc disease), cervical Defect, retina, with detachment right DJD (degenerative joint disease), lumbar Emphysema lung (HCC) Former smoker Hematuria SCHEDULED FOR THE PROCEDURE /SURGERY ON 02/11/2017 Hypokalemia Lung nodules Near syncope 09/19/2023 Osteoporosis Palpitations Pneumonia [id number] Recurrent major depression Sciatica Thoracic compression fracture (HCC) Vitamin D deficiency [2] [3] aspirin, 81 mg, Oral, Daily buPROPion XL, 150 mg, Oral, Daily busPIRone, 15 mg, Oral, BID cefepime, 2,000 mg, IntraVENous, q8h cholecalciferol, 2,000 Units, Oral, Daily Diclofenac Sodium, 2 g, Topical, BID enoxaparin, 40 mg, SubCUTAneous, Daily fluticasone, 2 spray, Each Nostril, Daily folic acid, 1 mg, Oral, Daily guaiFENesin, 600 mg, Oral, BID influenza, 0.5 mL, IntraMUSCular, Prior to discharge ipratropium-albuterol, 3 mL, Nebulization, TID melatonin, 3 mg, Oral, Nightly mirtazapine, 15 mg, Oral, Nightly mometasone-formoterol, 2 puff, Inhalation, BID montelukast, 10 mg, Oral, Nightly pantoprazole, 40 mg, Oral, q AM predniSONE, 30 mg, Oral, Daily Followed by [START ON 01/21/2025] predniSONE, 20 mg, Oral, Daily Followed by [START ON 01/24/2025] predniSONE, 10 mg, Oral, Daily senna-docusate sodium, 1 tablet, Oral, BID sodium chloride, 4 mL, Nebulization, BID Images from the original note were not included. PHYSICAL THERAPY [facility] Initial Evaluation Name/MRN: Gonzalo Deluca ([id number]) Evaluation Date: 01/19/2025 Date of : 1955 Admission Date: 01/12/2025 9:18 AM Age: 69 y.o. Room/Bed: B4450/B4450 A Discharge Recommendation: ECF with PT Equipment Needed: No Assessment IMPRESSION: Pt admitted 01/12 from ECF with COPD exacerbation and respiratory failure, encephalopathy. At baseline is on 3.5-4 L O2, reports able to ambulate ~1/2 distance of the hallway pushing w/c for support in the ECF before needing to sit. She demo bed mobility IND, transfer to [facility], ambulate with FWW and SBA ~50 ft before needing to sit. Spo2 93% pre-gait, desat to 84% and recover to 90% in ~2 min sitting. She would benefit from PT when return to [facility] to improve activity tolerance, safety and mobility Admitting Diagnosis: COPD exacerbation, respiratory failure, encephalopathy Prognosis: good Performance Deficits /Impairments: Decreased Functional Mobility, Decreased Endurance, and Decreased Balance Decision Making: Medium Complexity Subjective Per RN pt okay for therapy. Pt pleasant and agree toPT Pre session Spo2 93% on 4L O2 Pain: Pt denies any current pain. Past Medical History: Medical History[1] Past Surgical History: Surgical History[2] Admission Diagnosis: Patient Active Problem List Diagnosis Date Noted COPD exacerbation ([facility]) 01/12/2025 Anxiety and depression 08/03/2024 Cognitive deficits 08/03/2024 At risk for delirium 08/03/2024 Severe malnutrition ([facility]) ([facility]) 07/31/2024 Adult failure to thrive 07/30/2024 Falls frequently 09/20/2023 Unintentional weight loss 09/20/2023 Debility 09/20/2023 PFO (patent foramen ovale) ([facility]) 09/20/2023 Lumbar compression fracture, closed, initial encounter ([facility]) 02/13/2023 Nondisplaced fracture of neck of left femur ([facility]) 11/06/2022 Other specified complication of vascular prosthetic devices, implants and grafts, initial encounter 08/06/2021 Moderate malnutrition ([facility]) ([facility]) 01/13/2025 Poor venous access 12/19/2019 H/O: CVA (cerebrovascular accident) 12/14/2019 Malignant neoplasm of exocervix ([facility]) 11/07/2019 S/P hysterectomy 11/07/2019 PNA (pneumonia) 08/02/2019 Leukocytosis 04/13/2018 Shortness of breath 04/13/2018 DDD (degenerative disc disease), cervical 04/12/2018 Recurrent major depression 04/12/2018 Other chronic pain 04/10/2017 COPD (chronic obstructive pulmonary disease) ([facility]) 04/10/2017 Pulmonary nodule 04/10/2017 Sciatica 04/10/2017 Supplemental oxygen dependent 04/10/2017 Former smoker 04/10/2017 Medical Precautions: No active isolations Proper PPE donned/doffed in accordance with facility standards. Fall Risk: Webb Fall Risk Score: 50 (Medium Risk) Webb Fall Risk Score: 50 (High Risk) Precautions/Restrictions: N/A Family/Caregiver Present: none Overall Cognitive Status: WFL Overall Orientation Status: Oriented x4 Vision: Not Assessed Hearing: normal Social/Functional History Patient admitted from [facility]. Assistive Equipment: front wheeled walker and wheelchair - manual Prior Level of Function Prior Level of ADL Function: Independent Prior Level of Mobility: Required Assist; Device: Front wheeled walker and Wheelchair - manual Prior Level of Transfers: Independent Objective Lower Extremity Assessment AROM: WFL PROM: Not assessed this session Strength: WFL Sensation: Not assessed this session Balance: Balance During Session: Posture: good Sitting - Static: Independent Sitting - Dynamic: Independent Standing - Static: Independent Standing - Dynamic: SBA Bed Mobility: Supine to sit: Independent, denies dizziness, complete without bed rails Sit to supine: Independent Transfers Sit to stand: Modified Independent, to FWW with good hand placement, no LOB, demo good eccentric control to sit Stand to sit: Modified Independent Ambulation Ambulation 1 Assistive device(s) used: Front wheeled walker Assist level: SBA, short reciprocal pattern with no LOB. Limited by fatigue, demo increased SOB.Cues for pacing and pursed lip breathing pattern. Desat to 84%, recover in sit to 90% in ~2 min on 4L O2, cues for recovery position and diaphragm position for optimal recovery Distance (ft): ~50ft Quality of gait: No LOB, reciprocal stepping, slow lauren Outcome Measures AM-PAC How much HELP from another person do you currently need Turning from your back to your side while in a flat bed without using bedrails?: None Moving from lying on your back to sitting on the side of a flat bed without using bedrails?: None Moving to and from a bed to a chair (including a wheelchair)?: None Standing up from a chair using your arms (wheelchair or bedside chair)?: None Walking in a hospital room?: A Little Stair climbing assessed?: No AM-PAC Inpatient Mobility Raw Score (No Stairs) : 19 JH-HLM JH-HLM Scale: Walked 25 ft or more (i.e. walked outside of room) Plan Pt would benefit from skilled acute PT services to address Strengthening, Gait Training, Balance Training, Functional Mobility Training, Endurance Training, Safety Education and Training, Stair Training, Pain Management, Equipment Evaluation/Education, Patient/Caregiver Training, and Positioning. Frequency: 5 visitsduring current hospital admission or until additional recommendations are made Barriers: Decreased endurance Safety/Education Safety Safety Devices in [...] Needed Goals Patient Stated Goal: to go back to [facility] Encounter Problems Encounter Problems (Active) Balance Patient will maintain dynamic standing balance for 5 minutes with supervision in order to demonstrate decreased risk of falling. Start: 01/19/25 Expected End: 01/26/25 Exercise Patient will complete lower extremity exercises for 1-2 sets / 5-10 reps in order to improve strength and activity tolerance for mobility. Start: 01/19/25 Expected End: 01/26/25 Standing exercise Mobility Patient will ambulate 150 feet with modified independence and rolling walker in order to improve safety and independence with mobility. Start: 01/19/25 Expected End: 01/26/25 PT Misc Misc: Pt will independently demo 2 energy conservation techniques to improve activity tolerance and functional mobility Start: 01/19/25 Expected End: 01/26/25 Therapy Time Individual Co-Treatment Co-Evaluation Time In 0933 Time Out 0943 Minutes 10 Oseas Lima, PT Patient's Physical Therapy Plan of Care supervision is transferred to a [facility] Therapy Services Physical Therapist. Goals and/or treatment plan was established in collaboration with patient/family/other representatives. [1] Past Medical History: Diagnosis Date Abnormal stress test Acute exacerbation of chronic obstructive pulmonary disease (HCC) 04/12/2018 Allergic rhinitis 1956 Arthritis Asthma (HHS/HCC) Bronchitis Cancer (HCC) skin Cervical cancer (HCC) Chest pain COPD (chronic obstructive pulmonary disease) (HCC) USE OXYGEN 3 L AT NIGHT DDD (degenerative disc disease), cervical Defect, retina, with detachment right DJD (degenerative joint disease), lumbar Emphysema lung (HCC) Former smoker Hematuria SCHEDULED FOR THE PROCEDURE /SURGERY ON 02/11/2017 Hypokalemia Lung nodules Near syncope 09/19/2023 Osteoporosis Palpitations Pneumonia [id number] Recurrent major depression Sciatica Thoracic compression fracture (HCC) Vitamin D deficiency [2] Past Surgical History: Procedure Laterality Date CYSTOSCOPY 01/12/2017 OFFICE PROCEDURE CYSTOSCOPY 02/11/2017 C&P bladder biopsy EYE SURGERY detached retina 1994 HYSTERECTOMY 11/06/2019 ABDOMINAL RADICAL HYSTERECTOMY WITH BSO AND PELVIC LYMPH; DR. ZIYAD MENENDEZ [facility] OTHER SURGICAL HISTORY Left 12/19/2019 Med Port POWER Regular Size OTHER SURGICAL HISTORY Left 11/07/2022 Percutaneous skeltal fixation femoral fracture TUBAL LIGATION 1992 [facility] Geriatric Medicine Inpatient Consult Service Admission Date: 01/12/2025 Assessment Principal Problem: COPD exacerbation (HCC) Active Problems: Debility Anxiety and depression Cognitive deficits At risk for delirium Other chronic pain Moderate malnutrition (CMS/HCC) (HCC) Plan Debility --contributing factors include medications, chronic respiratory failure, malnutrition, cognitive decline --using walker/wheelchair at baseline. Living at [facility] since July. Per daughter, she is not eligible for medicaid and may need alternative living arrangement. Social Work consulted. --PT and OT when able. --dietitian following --Start Vitamin D3 01/18: Stable. Consult PT and OT for evaluation and treatment. Plans to return to facility at discharge. Depression and Anxiety --On Wellbutrin XL 150mg daily - consider weaning outpatient. May worsen anxiety and weight loss. --Continue Buspirone 15mg - takes TID at facility. On BID currently. Consider increasing to home (facility) dose. --Discontinued Paxil - has not taken since August. Removed from home medication list --Continue Mirtazapine 15mg at bedtime --Seroquel - she is not ordered Seroquel at the facility, however it is being filled at [facility] under prior PCP order for 200mg daily at bedtime as needed. Patient has been self-administering it at the facility. Reviewed with daughter and patient that the facility should be aware of any medication the patient is taking so that they can assess for side effects, interactions. Will continue Seroquel 50mg nightly PRN here. --Taking Hydroxyzine at facility. Recommend avoiding. --Recommend outpatient Psychiatry to follow 01/18: Sleeping well. Anxiety controlled. Did not receive Seroquel the past 2 nights. Continue Seroquel 50 mg nightly as needed at discharge to SNF. Monitor for withdrawal. Recommend outpatient psychiatry follow up Cognitive deficits --+ history of cognitive decline at home. + history of decline in ADL's and IADL's --TSH 0.28 in July, B12 639 in July --Head imaging - Apr 2024 reviewed. September 2023 - Unchanged small area of encephalomalacia in the lateral aspect of the right occipital lobe. --History concerning for baseline cognitive deficits. Concern mood and medications also contributing. --Recommend outpatient follow up at [facility] for more in depth cognitive evaluation when in usual state of health if she returns home. 01/18: Stable. Recommend outpatient cognitive evaluation at her facility if she stays there intermediate. Chronic pain --takes Oxycodone 15mg every 6 hours as needed for pain or shortness of breath --Palliative medicine following --On Methocarbamol - takes 1,000 mg every 8 hours as needed at facility. Agree with lower dose of 500mg. Consider changing to low dose Tizanidine prn. 01/18: Stable. Pain controlled. Continue plan. At risk for delirium --noted to have delirium initially that has likely resolved. --Risk factors: pain, acute illness, high risk medications, history of delirium, and baseline cognitive deficits --Encourage PO intake, time up in chair, family visits, supervised ambulation, and sleep hygiene --If agitated, assess for and consider treating for pain --QTc= 439 ms --Continue Seroquel 50mg HS PRN --Continue scheduled melatonin at HS --Monitor for constipation/urinary retention - last BM 01/17 --Possible medication contributions: steroids 01/18: She does not appear delirious Follow-up: will follow with you Subjective Chief Complaint: weakness Geriatrics consulted for "ECF patient, patient on multiple antianxiety/antidepressants" HPI- The patient is known to me. 69 y.o. year-old female with PMH of COPD, cervical cancer, DDD, DJD, osteoporosis, depression, compression fracture, vitamin D deficiency, anxiety, malnutrition, pneumonia presented to the hospital from [facility] for shortness of breath and hypoxia. Admitted to the ICU for acute encephalopathy, acute on chronic hypoxic/hypercapnic respiratory failure. Required NIV. Treated for COPD exacerbation, Bronchiectasis exacerbation. On Cefepime for concern for recurrent pseudomonas respiratory infection. Sputum culture pending. Transitioned out of ICU 01/15. Respiratory status has been improving. Interval History: Remains on general medical/surgical floor . CBC: Hgb 11.5 Mag 1.4 BMP: K 3.1 Chloride 111, creatinine 0.45, calcium 6.7 Patient stats she is feeling better. Breathing improving. Sleeping well. Eating ok, but not as much as she would like. Denies pain. Last BM yesterday, feels she can go today. Nursing reports no concerns. Review of Systems Constitutional: Negative for fatigue. HENT: Negative for congestion. Respiratory: Positive for cough and shortness of breath (with activity). Cardiovascular: Negative for chest pain and leg swelling. Gastrointestinal: Negative for abdominal pain, constipation, diarrhea and nausea. Genitourinary: Negative for difficulty urinating. Musculoskeletal: Positive for gait problem. Negative for arthralgias. Neurological: Positive for weakness. Psychiatric/Behavioral: Positive for sleep disturbance. Negative for confusion. The patient is nervous/anxious (at times). Objective BP 124/87 Pulse 90 Temp 36 C (96.8 F) (Temporal) Resp 18 Ht 5' 4" (1.626 m) Wt 116 lb 14.4 oz (53 kg) SpO2 93% BMI 20.07 kg/m No intake or output data in the 24 hours ending 01/18/25 1600 Wt Readings from Last 3 Encounters: 01/18/25 116 lb 14.4 oz (53 kg) 08/20/24 93 lb 3.2 oz (42.3 kg) 08/03/24 89 lb 1.1 oz (40.4 kg) Current Medications[1] Physical Exam Vitals reviewed. Constitutional: General: She is not in acute distress. Appearance: She is not ill-appearing. HENT: Head: Normocephalic and atraumatic. Cardiovascular: Rate and Rhythm: Normal rate and regular rhythm. Pulmonary: Effort: Pulmonary effort is normal. Breath sounds: Decreased breath sounds present. Abdominal: General: There is no distension. Palpations: Abdomen is soft. Tenderness: There is no abdominal tenderness. Musculoskeletal: Right lower leg: No edema. Left lower leg: No edema. Neurological: Mental Status: She is alert. Psychiatric: Attention and Perception: Attention normal. Comments: Appropriate in conversation Labs and Imaging: Recent Results (from the past 24 hours) CBC auto differential Collection Time: 01/18/25 5:45 AM Result Value Ref Range Auto WBC 8.1 3.6 - 10.7 10*3/uL RBC 3.94 3.80 - 5.20 10*6/uL Hemoglobin 11.5 (L) 11.7 - 16.0 g/dL Hematocrit 37.5 35.0 - 47.0 % MCV 95.2 77.0 - 99.0 fL MCH 29.2 26.0 - 34.0 pg MCHC 30.7 30.5 - 36.0 % RDW 13.8 11.5 - 15.0 % Platelets 252 140 - 440 10*3/uL MPV 9.5 9.0 - 12.7 fL nRBC 0.0 0.0 - 2.0 /100 WBCs Neutrophils Relative 67.4 38.0 - 82.0 % Lymphocytes Relative 19.5 15.0 - 45.0 % Monocytes Relative 8.4 5.0 - 13.0 % Eosinophils Relative 4.3 0.0 - 6.0 % Basophils Relative 0.2 0.0 - 2.0 % Immature Grans % 0.2 0.0 - 2.0 % Neutrophils Absolute 5.5 1.8 - 7.5 10*3/uL Lymphocytes Absolute 1.6 1.0 - 4.3 10*3/uL Monocytes Absolute 0.7 0.0 - 0.9 10*3/uL Eosinophils Absolute 0.4 0.0 - 0.5 10*3/uL Basophils Absolute 0.0 0.0 - 0.2 10*3/uL Immature Grans Absolute 0.0 <0.1 10*3/uL Basic metabolic panel Collection Time: 01/18/25 5:45 AM Result Value Ref Range SODIUM 143 136 - 145 mmol/L POTASSIUM 3.1 (L) 3.5 - 5.1 mmol/L CHLORIDE 111 (H) 98 - 107 mmol/L CARBON DIOXIDE 29 23 - 31 mmol/L UREA NITROGEN 17 9 - 23 mg/dL CREATININE 0.45 (L) 0.58 - 1.12 mg/dL GLUCOSE 85 82 - 115 mg/dL CALCIUM 6.7 (L) 8.8 - 10.0 mg/dL ANION GAP 3 3 - 13 mmol/L eGFR >90.0 >60.0 mL/min/1.73m*2 Magnesium Collection Time: 01/18/25 5:45 AM Result Value Ref Range MAGNESIUM 1.4 (L) 1.6 - 2.6 mg/dL Lab Results Component Value Date TSH 0.28 (L) 07/30/2024 Lab Results Component Value Date [id number] 07/30/2024 Lab Results Component Value Date VITD25 24 01/16/2025 Reviewed: allergies, previous encounters, active problem lists, medications, and labs [1] Current Facility-Administered Medications: acetaminophen (Tylenol) tablet 650 mg, 650 mg, Oral, q6h PRN, Clemente Lynn MD, 650 mg at 01/17/25 2124 albuterol (2.5 MG/3ML) 0.083% nebulizer solution 2.5 mg, 2.5 mg, Nebulization, q2h PRN, Clemente Lynn MD aspirin EC tablet 81 mg, 81 mg, Oral, Daily, Clemente Lynn MD, 81 mg at 01/18/25 1016 buPROPion XL (Wellbutrin XL) 24 hr tablet 150 mg, 150 mg, Oral, Daily, Clemente Lynn MD, 150 mg at 01/18/25 1016 busPIRone (Buspar) tablet 15 mg, 15 mg, Oral, BID, Clemente Lynn MD, 15 mg at 01/18/25 1017 cefepime (Maxipime) 2,000 mg in sodium chloride 0.9 % 50 mL IVPB Mini-Bag Plus, 2,000 mg, IntraVENous, q8h, Clemente Lynn MD, Stopped at 01/18/25 1430 Diclofenac Sodium (Voltaren) 1 % gel 2 g, 2 g, Topical, BID, Austin Walker MD, 2 g at 01/18/25 1512 enoxaparin (Lovenox) syringe 40 mg, 40 mg, SubCUTAneous, Daily, Clemente Lynn MD, 40 mg at 01/18/25 1018 fluticasone (Flonase) nasal spray 2 spray, 2 spray, Each Nostril, Daily, Srini Pires MD, 2 spray at 01/18/25 1019 folic acid (Folvite) tablet 1 mg, 1 mg, Oral, Daily, Clemente Lynn MD, 1 mg at 01/18/25 1018 guaiFENesin (Mucinex) 12 hr tablet 600 mg, 600 mg, Oral, BID, Srini Pires MD, 600 mg at 01/18/25 1018 influenza vaccine A&B surf ant adjuvanted (Fluad) HIGH-DOSE injection 0.5 mL, 0.5 mL, IntraMUSCular, Prior to discharge, Clemente Lynn MD ipratropium-albuterol (Duo-Neb) 0.5-2.5 mg/3 mL nebulizer solution 3 mL, 3 mL, Nebulization, TID, Clemente Lynn MD, 3 mL at 01/18/25 1404 magnesium sulfate IVPB premix 2,000 mg, 2,000 mg, IntraVENous, Once, Austin Walker MD, Last Rate: 25 mL/hr at 01/18/25 1512, 2,000 mg at 01/18/25 1512 melatonin tablet 3 mg, 3 mg, Oral, Nightly, Clemente Lynn MD, 3 mg at 01/17/25 2125 methocarbamol (Robaxin) tablet 500 mg, 500 mg, Oral, q8h PRN, Srini Pires MD, 500 mg at 01/18/25 1033 mirtazapine (Remeron) tablet 15 mg, 15 mg, Oral, Nightly, Clemente Lynn MD, 15 mg at 01/17/25 2125 mometasone-formoterol (Dulera 100) 100-5 MCG/ACT inhaler 2 puff, 2 puff, Inhalation, BID, Srini Pires MD, 2 puff at 01/18/25 1210 montelukast (Singulair) tablet 10 mg, 10 mg, Oral, Nightly, Clemente Lynn MD, 10 mg at 01/17/25 2125 naloxone (Narcan) injection 0.4 mg, 0.4 mg, IntraVENous, q5 min PRN, Clemente Lynn MD ondansetron ODT (Zofran-ODT) disintegrating tablet 4 mg, 4 mg, Oral, q8h PRN, 4 mg at 01/18/25 1016 OR ondansetron (Zofran) injection 4 mg, 4 mg, IntraVENous, q6h PRN, Clemente Lynn MD, 4 mg at 01/12/252038 oxyCODONE (Roxicodone) immediate release tablet 15 mg, 15 mg, Oral, q6h PRN, Ruth العراقي MD, 15 mg at 01/18/25 1210 pantoprazole (ProtoNix) EC tablet 40 mg, 40 mg, Oral, q AM, Clemente Lynn MD, 40 mg at 01/18/25 1018 [COMPLETED] predniSONE (Deltasone) tablet 40 mg, 40 mg, Oral, Daily, 40 mg at 01/17/25 1020 FOLLOWED BY predniSONE (Deltasone) tablet 30 mg, 30 mg, Oral, Daily, 30 mg at 01/18/25 1017 FOLLOWED BY [START ON 01/21/2025] predniSONE (Deltasone) tablet 20 mg, 20 mg, Oral, Daily FOLLOWED BY [START ON 01/24/2025] predniSONE (Deltasone) tablet 10 mg, 10 mg, Oral, Daily, Srini Pires MD QUEtiapine (SEROquel) tablet 50 mg, 50 mg, Oral, Nightly PRN, Clemente Lynn MD, 50 mg at 01/15/252058 senna-docusate sodium (Senokot-S) 8.6-50 MG tablet 1 tablet, 1 tablet, Oral, BID, Ruth العراقي MD, 1 tablet at 01/17/252124 sodium chloride 3 % hypertonic nebulizer solution 4 mL, 4 mL, Nebulization, BID, Srini Pires MD, 4 mL at 01/18/25 0825 Images from the original note were not included. [facility], Pulmonary Medicine [address] [place], [place] [id number] Patient - Gonzalo Deluca, Age - 69 y.o. - 1955 Room Number - B4-450/[id number] A Consulting - Austin Walker MD Primary Care Physician - HERMINIA CASE MD [facility] # - [id number] Date of Admission - 01/12/2025 9:18 AM Hospital Day - 6 Chief Complaint: Gonzalo Deluca is a 69 y.o. female who pulmonary is following for COPD AE, acute hypoxic respiratory failure, bronchiectasis, hospital follow up Subjective/Interval History: Patient resting comfortably in bed. On 5 liters NC. Dyspnea and cough improving. No new overnight concerns. Denied chest pain, abdominal pain, nausea, fever or chills. A pertinent review of systems was performed and was otherwise non-contributory except as detailed in Subjective section above. Objective: Vitals: BP 124/87 Pulse 82 Temp 36 C (96.8 F) (Temporal) Resp 18 Ht 5' 4" (1.626 m) Wt 116 lb 14.4 oz (53 kg) SpO2 92% BMI 20.07 kg/m Pulse Ox: SpO2 Av % Min: 92 % Max: 95 % Supplemental O2: O2 Flow Rate (L/min): 5 L/min I/O 24HR INTAKE/OUTPUT: Intake/Output Summary (Last 24 hours) at 01/18/2025 1016 Last data filed at 01/17/2025 1309 Gross per 24 hour Intake 240 ml Output -- Net 240 ml Physical Exam: Physical Exam Vitals and nursing note reviewed. Constitutional: Appearance: She is cachectic. HENT: Nose: No congestion or rhinorrhea. Eyes: General: No scleral icterus. Right eye: No discharge. Left eye: No discharge. Cardiovascular: Rate and Rhythm: Normal rate and regular rhythm. Pulmonary: Effort: No respiratory distress. Breath sounds: Rhonchi present. No wheezing. Musculoskeletal: Right lower leg: No edema. Left lower leg: No edema. Skin: General: Skin is warm and dry. Coloration: Skin is not jaundiced. Neurological: Mental Status: She is alert and oriented to person, place, and time. Mental status is at baseline. Psychiatric: Mood and Affect: Mood normal. Behavior: Behavior normal. Medications: Allergies[1] Current Medications[2] PRN Meds[3] Labs: CBC: Recent Labs 01/17/2550501/18/25 0545 WBC 7.1 8.1 HGB 11.0* 11.5* HCT 35.7 37.5 PLT 205 252 MCV 94.7 95.2 RDW 13.7 13.8 BMP: Recent Labs 01/16/2552601/17/256 01/18/25 0545 NA 142 141 143 K 3.7 3.3* 3.1* CL 100 99 111* CO2 33* 37* 29 BUN 22 16 17 CREATININE 0.52* 0.44* 0.45* CALCIUM 8.4* 8.1* 6.7* MG -- 1.8 1.4* Glucose: Recent Labs 01/16/2552601/17/256 01/18/25 0545 GLUCOSE 90 102 85 ABGs: No results for input(s): "PHART", "PUB1WKF", "PO2ART", "VBA4KGS", "SO2ART", "O3OYKNXT" in the last 72 hours. Microbiology: COVID/Flu/RSV: Negative Respiratory pathogens PCR: Negative Urine antigens: Negative Blood cultures: NGTD MRSA PCR: + Staph aureus, negative mecA gene Respiratory culture: Pending Pneumonia PCR panel: + Pseudomonas aeruginosa Imaging/ Testing: CXR 01/13/25: FINDINGS: LUNGS AND PLEURAL SPACES: COPD, unchanged. Coarse bilateral interstitial lung markings. No consolidation. No pneumothorax. HEART: Unremarkable. No cardiomegaly. MEDIASTINUM: Unremarkable. Normal mediastinal contour. BONES/JOINTS: Thoracic degenerative spondylosis. No acute fracture. TUBES, LINES AND DEVICES: Left IJ MediPort catheter tip overlies mid SVC, unchanged. IMPRESSION: Emphysema, unchanged. Parenchymal fibrotic changes. Left subclavian MediPort, unchanged Problem List[4] Assessment and Plan/Recommendations: Acute on chronic hypoxic & hypercarbic respiratory failure -Secondary to COPD AE and bronchiectasis exacerbation -Slowly improving. Required NIV while in ICU. States it helped her breathing however she is not willing to use out on the floor or at home. -Continue to wean supplemental oxygen as patient tolerates. On 5 liters NC. Baseline 3-4 liters at home. -Goal SpO2 > 88% -Dyspnea with exertional activity improving COPDAE/ Advanced emphysema -Continue Dulera and scheduled DuoNeb's. Resume Breo and Spiriva at discharge -Prednisone taper as ordered -PRN oxycodone for dyspnea per palliative care -COPD navigator following -PFT's scheduled 02/25 Bronchiectasis with concern for acute LRTI, + Pseudomonas aeruginosa -Prior CT chest in November with diffuse bronchiectasis, mucus plugging. Hx pseudomonas in the past. -Pneumonia PCR + for Pseudomonas. Continue Cefepime. Final sputum culture still pending. If sensitive to fluoroquinolone can transition to po at discharge. -Plan for 7-14 day antibiotic course depending on clinical response. 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 Counseled on smoking cessation and advised to quit smoking completely. Declined NRT Patient will not be seen by Pulmonary over the weekend. Please notify ICU attending with any urgent needs. Advance Directive: DNR-CCA Discharge planning: Hospital follow up scheduled with Sofia LISA on 02/06/25 Case discussed with nurse and patient Questions and concerns addressed. [1] Allergies Allergen Reactions Pollen Extract Unknown [2] Current Facility-Administered Medications: acetaminophen (Tylenol) tablet 650 mg, 650 mg, Oral, q6h PRN, Clemente Lynn MD, 650 mg at 01/17/25 2124 albuterol (2.5 MG/3ML) 0.083% nebulizer solution 2.5 mg, 2.5 mg, Nebulization, q2h PRN, Clemente Lynn MD aspirin EC tablet 81 mg, 81 mg, Oral, Daily, Clemente Lynn MD, 81 mg at 01/17/25 1018 buPROPion XL (Wellbutrin XL) 24 hr tablet 150 mg, 150 mg, Oral, Daily, Clemente Lynn MD, 150 mg at 01/17/25 1017 busPIRone (Buspar) tablet 15 mg, 15 mg, Oral, BID, Clemente Lynn MD, 15 mg at 01/17/252124 cefepime (Maxipime) 2,000 mg in sodium chloride 0.9 % 50 mL IVPB Mini-Bag Plus, 2,000 mg, IntraVENous, q8h, Clemente Lynn MD, Last Rate: 12.5 mL/hr at 01/18/25 0125, 2,000 mg at 01/18/25 0125 enoxaparin (Lovenox) syringe 40 mg, 40 mg, SubCUTAneous, Daily, Clemente Lynn MD, 40 mg at 01/17/25 1020 fluticasone (Flonase) nasal spray 2 spray, 2 spray, Each Nostril, Daily, Srini Pires MD, 2 spray at 01/16/25 0958 folic acid (Folvite) tablet 1 mg, 1 mg, Oral, Daily, Clemente Lynn MD, 1 mg at 01/17/25 1018 guaiFENesin (Mucinex) 12 hr tablet 600 mg, 600 mg, Oral, BID, Srini Pires MD, 600 mg at 01/17/252124 influenza vaccine A&B surf ant adjuvanted (Fluad) HIGH-DOSE injection 0.5 mL, 0.5 mL, IntraMUSCular, Prior to discharge, Clemente Lynn MD ipratropium-albuterol (Duo-Neb) 0.5-2.5 mg/3 mL nebulizer solution 3 mL, 3 mL, Nebulization, TID, Clemente Lynn MD, 3 mL at 01/18/25 0815 magnesium sulfate IVPB premix 2,000 mg, 2,000 mg, IntraVENous, Once, Austin Walker MD melatonin tablet 3 mg, 3 mg, Oral, Nightly, Clemente Lynn MD, 3 mg at 01/17/25 2125 methocarbamol (Robaxin) tablet 500 mg, 500 mg, Oral, q8h PRN, Srini Pires MD, 500 mg at 01/17/25 1533 mirtazapine (Remeron) tablet 15 mg, 15 mg, Oral, Nightly, Clemente Lynn MD, 15 mg at 01/17/252124 mometasone-formoterol (Dulera 100) 100-5 MCG/ACT inhaler 2 puff, 2 puff, Inhalation, BID, Srini Pires MD, 2 puff at 01/17/252125 montelukast (Singulair) tablet 10 mg, 10 mg, Oral, Nightly, Clemente Lynn MD, 10 mg at 01/17/252124 naloxone (Narcan) injection 0.4 mg, 0.4 mg, IntraVENous, q5 min PRN, Clemente Lynn MD ondansetron ODT (Zofran-ODT) disintegrating tablet 4 mg, 4 mg, Oral, q8h PRN, 4 mg at 01/17/252223 OR ondansetron (Zofran) injection 4 mg, 4 mg, IntraVENous, q6h PRN, Clemente Lynn MD, 4 mg at 01/12/252038 oxyCODONE (Roxicodone) immediate release tablet 15 mg, 15 mg, Oral, q6h PRN, Ruth العراقي MD, 15 mg at 01/18/25 0548 pantoprazole (ProtoNix) EC tablet 40 mg, 40 mg, Oral, q AM, Clemente Lynn MD, 40 mg at 01/17/25 1017 potassium chloride CR (Klor-Con M10) ER tablet 40 mEq, 40 mEq, Oral, Once, Austin Walker MD potassium chloride IVPB 10 mEq, 10 mEq, IntraVENous, q1h, Austin Walker MD [COMPLETED] predniSONE (Deltasone) tablet 40 mg, 40 mg, Oral, Daily, 40 mg at 01/17/25 1020 FOLLOWED BY predniSONE (Deltasone) tablet 30 mg, 30 mg, Oral, Daily FOLLOWED BY [START ON 01/21/2025] predniSONE (Deltasone) tablet 20 mg, 20 mg, Oral, Daily FOLLOWED BY [START ON 01/24/2025] predniSONE (Deltasone) tablet 10 mg, 10 mg, Oral, Daily, Srini Pires MD QUEtiapine (SEROquel) tablet 50 mg, 50 mg, Oral, Nightly PRN, Clemente Lynn MD, 50 mg at 01/15/252058 senna-docusate sodium (Senokot-S) 8.6-50 MG tablet 1 tablet, 1 tablet, Oral, BID, Ruth العراقي MD, 1 tablet at 01/17/252124 sodium chloride 3 % hypertonic nebulizer solution 4 mL, 4 mL, Nebulization, BID, Srini Pires MD, 4 mL at 01/18/25 0825 [3] PRN medications: acetaminophen, albuterol, methocarbamol, naloxone, ondansetron ODT OR ondansetron, oxyCODONE, QUEtiapine [4] Patient Active Problem List Diagnosis Poor venous access Other specified complication of vascular prosthetic devices, implants and grafts, initial encounter Other chronic pain COPD (chronic obstructive pulmonary disease) (HCC) DDD (degenerative disc disease), cervical Leukocytosis Malignant neoplasm of exocervix (HCC) Moderate malnutrition (CMS/HCC) (HCC) Recurrent major depression Pulmonary nodule S/P hysterectomy Sciatica Shortness of breath Supplemental oxygen dependent PNA (pneumonia) H/O: CVA (cerebrovascular accident) Former smoker Nondisplaced fracture of neck of left femur (HCC) Lumbar compression fracture, closed, initial encounter (HCC) Severe malnutrition (CMS/HCC) (HCC) Falls frequently Unintentional weight loss Debility PFO (patent foramen ovale) (HHS/HCC) Adult failure to thrive Anxiety and depression Cognitive deficits At risk for delirium COPD exacerbation (HCC) Hospitalist Progress Note 01/18/[id number]: Please page me ([phone]) for patient care issues. [phone]: Please page [facility] night Hospitalist for any issues. Subjective: Admit Date: 01/12/2025 PCP: HERMINIA CASE MD Room[facility] A Interval History: No overnight issues. Denies chest pain or sob today and states she is still breathing good today. Does NOT look sob laying in bed. She denies any abdominal pain, nausea, vomiting. No fevers or chills. Adult diet Regular @[id number]@ 24HR INTAKE/OUTPUT: Intake/Output Summary (Last 24 hours) at 01/18/2025 0846 Last data filed at 01/17/2025 1309 Gross per 24 hour Intake 240 ml Output -- Net 240 ml Past Medical History: Medical History[1] LABS: CBC: Recent Labs 01/17/2550501/18/25 0545 WBC 7.1 8.1 RBC 3.77* 3.94 HGB 11.0* 11.5* HCT 35.7 37.5 MCV 94.7 95.2 RDW 13.7 13.8 PLT 205 252 BMP: Recent Labs 01/16/2552601/17/2550501/18/2545 NA 142 141 143 K 3.7 3.3* 3.1* CL 100 99 111* CO2 33* 37* 29 BUN 22 16 17 CREATININE 0.52* 0.44* 0.45* GLUCOSE 90 102 85 CALCIUM 8.4* 8.1* 6.7* ANIONGAP 9 5 3 LIVER PROFILE:No results for input(s): "AST", "ALT", [...] the last 72 hours. Objective: Vitals: BP 124/87 Pulse 82 Temp 36 C (96.8 F) (Temporal) Resp 18 Ht 5' 4" (1.626 m) Wt 116 lb 14.4 oz (53 kg) SpO2 92% BMI 20.07 kg/m Pulse Ox: SpO2 Av.3 % Min: 92 % Max: 95 % Supplemental O2: O2 Flow Rate (L/min): 5 L/min General appearance: No apparent distress, appears stated age, HEENT: Eyes: No scleral icterus Oral: Tongue is semi-moist Cardiovascular: S1/S2 heard, RRR Respiratory: decreased BS throughout but clear and no wheezing Abdomen: Soft, non-tender, non-distended bowel sounds positive Musculoskeletal: No obvious deformities seen Skin: No visible rashes or lesions. Medications: Continuous Meds[2] Scheduled Meds[3] Assessment Acute, acute on chronic, unstable/uncontrolled chronic problems/diagnoses: # Acute on chronic hypoxic and hypercarbic respiratory failure- 2/2 AECOPD, bronchiectasis exacerbation. Off NIV. Now weaned to 5L supplemental O2 today (4L baseline) and with severe dyspnea on minimal movement. Pulmonary following. On tapered steroids and breathing tx # Acute respiratory acidosis due to above - resolved and is off NIV (was on NIV in ICU) # Acute exacerbation of COPD with underlying advanced Emphysema - likely infectious etiology. On prednisone taper, duonejulia and Dulera. Continue Cefepime as recommended per Pulmonary. On PRN oxycodone for dyspnea per palliative care. # Bronchiectasis with acute lower respiratory infection with Pseudomonas - has hx of pseudomonas in past. PNA PCR positive here again as well for PSA. Continue Cefepime as recommended per pulm/crit. Plan 7-14 day antibiotic course depending on clinical response per pulmonary. Continue hypertonic saline and mucinex for pulmonary toilet in setting of infection and mucous plugging. 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 # Acute metabolic encephalopathy due to hypercarbia/hypoxia. Resolved with improved respiratory status. 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 Today is day 7 of Cefepime. Sputum cx/sens pending (Needs to stay at least 1 more day - to either complete total of 7 days of IV Cefepime vs ongoing PO antibx outpatient but would need sputum cx/sens to see what PSA is sensitive to, which is still pending). Confirm with pulmonary, they recommend 10 days total treatment for the Pseudomonas but states she can go home on p.o. antibiotics if it is sensitive to p.o. antibiotics which again sputum culture still pending. Otherwise they have already cleared for discharge this weekend once sputum culture comes back and if it shows sensitivity to the p.o. antibiotics for the Pseudomonas. Also pulmonary took care of the pulmonary medications for discharge as well - Continue pulmonary toilet as per pulmonary with hypertonic saline and Mucinex - Continue tapered prednisone and breathing treatments as recommended per pulmonary - Pulmonary following - Geriatrics following - Palliative care following - Continue nasal cannula oxygen, wean as able back to baseline - Check daily labs Extended Emergency Contact Information Primary Emergency Contact: Karishma Deluca Address: [address] [place] [address] [place] [address] [facility] Relation: Daughter Secondary Emergency Contact: Jace Deluca Mobile Relation: Darhsan Austin Walker MD Division of Hospitalist Medicine Inpatient Medical Services/[facility] PAGER: Epic chat [1] Past Medical History: Diagnosis Date Abnormal stress test Acute exacerbation of chronic obstructive pulmonary disease (HCC) 04/12/2018 Allergic rhinitis 1955 Arthritis Asthma ([facility]/HCC) Bronchitis Cancer (HCC) skin Cervical cancer (HCC) Chest pain COPD (chronic obstructive pulmonary disease) ([facility]) USE OXYGEN 3 L AT NIGHT DDD (degenerative disc disease), cervical Defect, retina, with detachment right DJD (degenerative joint disease), lumbar Emphysema lung (HCC) Former smoker Hematuria SCHEDULED FOR THE PROCEDURE /SURGERY ON 02/11/2017 Hypokalemia Lung nodules Near syncope 09/19/2023 Osteoporosis Palpitations Pneumonia [id number] Recurrent major depression Sciatica Thoracic compression fracture (HCC) Vitamin D deficiency [2] [3] aspirin, 81 mg, Oral, Daily buPROPion XL, 150 mg, Oral, Daily busPIRone, 15 mg, Oral, BID cefepime, 2,000 mg, IntraVENous, q8h enoxaparin, 40 mg, SubCUTAneous, Daily fluticasone, 2 spray, Each Nostril, Daily folic acid, 1 mg, Oral, Daily guaiFENesin, 600 mg, Oral, BID influenza, 0.5 mL, IntraMUSCular, Prior to discharge ipratropium-albuterol, 3 mL, Nebulization, TID magnesium sulfate, 2,000 mg, IntraVENous, Once melatonin, 3 mg, Oral, Nightly mirtazapine, 15 mg, Oral, Nightly mometasone-formoterol, 2 puff, Inhalation, BID montelukast, 10 mg, Oral, Nightly pantoprazole, 40 mg, Oral, q AM potassium chloride CR, 40 mEq, Oral, Once predniSONE, 30 mg, Oral, Daily Followed by [START ON 01/21/2025] predniSONE, 20 mg, Oral, Daily Followed by [START ON 01/24/2025] predniSONE, 10 mg, Oral, Daily senna-docusate sodium, 1 tablet, Oral, BID sodium chloride, 4 mL, Nebulization, BID Images from the original note were not included. [facility], Pulmonary Medicine [address] [place], [place] [id number] Patient - Gonzalo Deluca, Age - 69 y.o. - 1955 Room Number - B4-450/[id number] A Consulting - Austin Walker MD Primary Care Physician - HER[id number] Date of Admission - 01/12/2025 9:18 AM Hospital Day - 5 Chief Complaint: Gonzalo Deluca is a 69 y.o. female who pulmonary is following for COPD AE, acute hypoxic respiratory failure, bronchiectasis, hospital follow up Subjective/Interval History: Patient awake resting comfortably in bed. Denied any new overnight concerns. Supplemental oxygen weaned down to 5 liters NC. SOB with exertional activity. Denied chest pain, fever or chills. + productive cough A pertinent review of systems was performed and was otherwise non-contributory except as detailed in Subjective section above. Objective: Vitals: BP 116/69 (BP Location: Left arm, Patient Position: Lying) Pulse 86 Temp 36.1 C (96.9 F) (Temporal) Resp 18 Ht 5' 4" (1.626 m) Wt 118 lb 11.2 oz (53.8 kg) SpO2 94% BMI 20.37 kg/m Pulse Ox: SpO2 Av.6 % Min: 92 % Max: 96 % Supplemental O2: O2 Flow Rate (L/min): 5 L/min I/O 24HR INTAKE/OUTPUT: Intake/Output Summary (Last 24 hours) at 01/17/2025 1142 Last data filed at 01/16/2025 1746 Gross per 24 hour Intake 480 ml Output -- Net 480 ml Physical Exam: Physical Exam Vitals and nursing note reviewed. Constitutional: General: She is not in acute distress. Appearance: She is cachectic. HENT: Nose: No congestion or rhinorrhea. Eyes: General: No scleral icterus. Right eye: No discharge. Left eye: No discharge. Cardiovascular: Rate and Rhythm: Normal rate. Pulmonary: Breath sounds: Decreased air movement present. No rhonchi. Musculoskeletal: Right lower leg: No edema. Left lower leg: No edema. Skin: Coloration: Skin is not jaundiced. Neurological: Mental Status: She is alert and oriented to person, place, and time. Mental status is at baseline. Psychiatric: Mood and Affect: Mood normal. Behavior: Behavior normal. Medications: Allergies[1] Current Medications[2] PRN Meds[3] Labs: CBC: Recent Labs 01/15/2553201/17/25 0506 WBC 6.6 7.1 HGB 12.0 10.9* 11.0* HCT 35.6 35.7 PLT 185 205 MCV 95.7 94.7 RDW 13.5 13.7 BMP: Recent Labs 01/15/2553201/16/2552601/17/25 0506 NA 141 142 141 K 4.3 3.7 3.3* CL 100 100 99 CO2 35* 33* 37* BUN 18 22 16 CREATININE 0.52* 0.52* 0.44* CALCIUM 8.7* 8.4* 8.1* MG 1.8 -- 1.8 PHOS 2.1* -- -- Glucose: Recent Labs 01/15/2553201/16/2527 01/17/25 0506 GLUCOSE 148* 90 102 ABGs: Recent Labs 01/15/25532 [id number] Nasal Cannula (LPM) Microbiology: COVID/Flu/RSV: Negative Respiratory pathogens PCR: Negative Urine antigens: Negative Blood cultures: NGTD MRSA PCR: + Staph aureus, negative mecA gene Respiratory culture: Pending Pneumonia PCR panel: + Pseudomonas aeruginosa Imaging/ Testing: CXR 01/13/25: FINDINGS: LUNGS AND PLEURAL SPACES: COPD, unchanged. Coarse bilateral interstitial lung markings. No consolidation. No pneumothorax. HEART: Unremarkable. No cardiomegaly. MEDIASTINUM: Unremarkable. Normal mediastinal contour. BONES/JOINTS: Thoracic degenerative spondylosis. No acute fracture. TUBES, LINES AND DEVICES: Left IJ MediPort catheter tip overlies mid SVC, unchanged. IMPRESSION: Emphysema, unchanged. Parenchymal fibrotic changes. Left subclavian MediPort, unchanged Problem List[4] Assessment and Plan/Recommendations: Acute on chronic hypoxic & hypercarbic respiratory failure -Secondary to COPD AE and bronchiectasis exacerbation -Slowly improving. Required NIV while in ICU. States it helped her breathing however she is not willing to use out on the floor or at home. -Weaned down to 5 liters NC. Continue to wean FiO2 as patient tolerates Baseline 4 liters NC at home. -Goal SpO2 > 88% -Severe dyspnea and purse lip breathing with minimal movement. COPDAE/ Advanced emphysema -Continue Dulera and scheduled DuoNeb's. Resume Breo and Spiriva at discharge -Prednisone taper as ordered -PRN oxycodone for dyspnea per palliative care -COPD navigator following Bronchiectasis with concern for acute LRTI, + Pseudomonas aeruginosa -Prior CT chest in November with diffuse bronchiectasis, mucus plugging. Hx pseudomonas in the past. -Pneumonia PCR + for Pseudomonas. Final sputum culture pending. Continue Cefepime -Plan for 7-14 day antibiotic course depending on clinical response. 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 Counseled on smoking cessation and advised to quit smoking completely. Declined NRT Advance Directive: DNR-CCA Discharge planning: TBD Case discussed with nurse and patient Questions and concerns addressed. [1] Allergies Allergen Reactions Pollen Extract Unknown [2] Current Facility-Administered Medications: acetaminophen (Tylenol) tablet 650 mg, 650 mg, Oral, q6h PRN, Clemente Lynn MD, 650 mg at 01/16/25 2022 albuterol (2.5 MG/3ML) 0.083% nebulizer solution 2.5 mg, 2.5 mg, Nebulization, q2h PRN, Clemente Lynn MD aspirin EC tablet 81 mg, 81 mg, Oral, Daily, Clemente Lynn MD, 81 mg at 01/17/25 1018 buPROPion XL (Wellbutrin XL) 24 hr tablet 150 mg, 150 mg, Oral, Daily, Clemente Lynn MD, 150 mg at 01/17/25 1017 busPIRone (Buspar) tablet 15 mg, 15 mg, Oral, BID, Clemente Lynn MD, 15 mg at 01/17/25 1019 cefepime (Maxipime) 2,000 mg in sodium chloride 0.9 % 50 mL IVPB Mini-Bag Plus, 2,000 mg, IntraVENous, q8h, Clemente Lynn MD, Last Rate: 12.5 mL/hr at 01/17/25 1021, 2,000 mg at 01/17/25 1021 enoxaparin (Lovenox) syringe 40 mg, 40 mg, SubCUTAneous, Daily, Clemente Lynn MD, 40 mg at 01/17/25 1020 fluticasone (Flonase) nasal spray 2 spray, 2 spray, Each Nostril, Daily, Srini Pires MD, 2 spray at 01/16/25 0958 folic acid (Folvite) tablet 1 mg, 1 mg, Oral, Daily, Clemente Lynn MD, 1 mg at 01/17/25 1018 guaiFENesin (Mucinex) 12 hr tablet 600 mg, 600 mg, Oral, BID, Srini Pires MD, 600 mg at 01/17/25 1017 influenza vaccine A&B surf ant adjuvanted (Fluad) HIGH-DOSE injection 0.5 mL, 0.5 mL, IntraMUSCular, Prior to discharge, Clemente Lynn MD ipratropium-albuterol (Duo-Neb) 0.5-2.5 mg/3 mL nebulizer solution 3 mL, 3 mL, Nebulization, TID, Clemente Lynn MD, 3 mL at 01/17/25 0848 melatonin tablet 3 mg, 3 mg, Oral, Nightly, Clemente Lynn MD, 3 mg at 01/16/252021 methocarbamol (Robaxin) tablet 500 mg, 500 mg, Oral, q8h PRN, Srini Pires MD, 500 mg at 01/16/252021 mirtazapine (Remeron) tablet 15 mg, 15 mg, Oral, Nightly, Clemente Lynn MD, 15 mg at 01/16/252021 mometasone-formoterol (Dulera 100) 100-5 MCG/ACT inhaler 2 puff, 2 puff, Inhalation, BID, Srini Pires MD, 2 puff at 01/17/2517 montelukast (Singulair) tablet 10 mg, 10 mg, Oral, Nightly, Clemente Lynn MD, 10 mg at 01/16/252021 naloxone (Narcan) injection 0.4 mg, 0.4 mg, IntraVENous, q5 min PRN, Clemente Lynn MD ondansetron ODT (Zofran-ODT) disintegrating tablet 4 mg, 4 mg, Oral, q8h PRN, 4 mg at 01/17/25 1031 OR ondansetron (Zofran) injection 4 mg, 4 mg, IntraVENous, q6h PRN, Clemente Lynn MD, 4 mg at 01/12/252038 oxyCODONE (Roxicodone) immediate release tablet 15 mg, 15 mg, Oral, q6h PRN, Ruth العراقي MD, 15 mg at 01/17/25 1016 pantoprazole (ProtoNix) EC tablet 40 mg, 40 mg, Oral, q AM, Clemente Lynn MD, 40 mg at 01/17/25 1017 [COMPLETED] predniSONE (Deltasone) tablet 40 mg, 40 mg, Oral, Daily, 40 mg at 01/17/25 1020 FOLLOWED BY [START ON 01/18/2025] predniSONE (Deltasone) tablet 30 mg, 30 mg, Oral, Daily FOLLOWED BY [START ON 01/21/2025] predniSONE (Deltasone) tablet 20 mg, 20 mg, Oral, Daily FOLLOWED BY [START ON 01/24/2025] predniSONE (Deltasone) tablet 10 mg, 10 mg, Oral, Daily, Srini Pires MD QUEtiapine (SEROquel) tablet 50 mg, 50 mg, Oral, Nightly PRN, Clemente Lynn MD, 50 mg at 01/15/252058 senna-docusate sodium (Senokot-S) 8.6-50 MG tablet 1 tablet, 1 tablet, Oral, BID, Ruth العراقي MD, 1 tablet at 01/17/25 1018 sodium chloride 3 % hypertonic nebulizer solution 4 mL, 4 mL, Nebulization, BID, Srini Pires MD, 4 mL at 01/17/25 0857 [3] PRN medications: acetaminophen, albuterol, methocarbamol, naloxone, ondansetron ODT OR ondansetron, oxyCODONE, QUEtiapine [4] Patient Active Problem List Diagnosis Poor venous access Other specified complication of vascular prosthetic devices, implants and grafts, initial encounter Other chronic pain COPD (chronic obstructive pulmonary disease) (HCC) DDD (degenerative disc disease), cervical Leukocytosis Malignant neoplasm of exocervix (HCC) Moderate malnutrition (CMS/HCC) (HCC) Recurrent major depression Pulmonary nodule S/P hysterectomy Sciatica Shortness of breath Supplemental oxygen dependent PNA (pneumonia) H/O: CVA (cerebrovascular accident) Former smoker Nondisplaced fracture of neck of left femur (HCC) Lumbar compression fracture, closed, initial encounter (HCC) Severe malnutrition (CMS/HCC) (HCC) Falls frequently Unintentional weight loss Debility PFO (patent foramen ovale) (HHS/HCC) Adult failure to thrive Anxiety and depression Cognitive deficits At risk for delirium COPD exacerbation (HCC) Nutrition Assessment Type and Reason for Visit: Reassess Nutrition Recommendations/Plan: Continue with Adult diet Regular Encouraged pt to consume high calorie/high protein foods to promote healthy lean mass weight gain to meet anabolic needs for COPD exacerbation/hx. Continue with Ensure Plus High Protein TID. Ensure Plus High Protein provides 350 kcals, 20g protein per serving. Initiate vanilla Magic cup once daily per MNT protocol. Magic cup provides 290 kcals, 9 g protein per serving. Please document pt's PO intakes via flowsheet to accurately assess PO intake adequacy. Pt on Remeron- appetite fairly good; weights appear to be trending up if scales are accurate. Monitor intakes, weights, and labs weekly. RD will follow. 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 Pt stated that she skips breakfast. Pt had three Ensure Plus HP supplements at bedside. Pt stated that she tries to keep up with them, and that she wants to continue receiving them TID. Pt is also open to trying vanilla Magic cup. Pt still visibly short of breath at rest, but denies any difficulty swallowing with labored breathing. Estimated Daily Nutrient Needs: Energy Requirements Based On: Kcal/kg Weight Used for Energy Requirements: Current Weight for Energy Calculation (kg): 48 kg Total Energy Requirements (kcals/day): 5921-8998 kcals (30-35 kcals/kg) Weight Used for Protein Requirements: Current Weight in Kg Used for Protein Requirements: 48 kg Estimated Total Protein (g/day): 58-77g (1.2-1.6g/kg) Estimated Daily Total Fluid (ml/day): 1440 ml/day or per MD Nutrition Related Findings: no edema; K+ 3.3, Cr 0.44, Albumin 2.9, corrected ca++ 8.74, Phos 2.1, Mag 1.8; Deltasone, Senokot, Remeron, Lovenox, Maxipime Wound Type: (redness to coccyx, scattered bruising) Current Nutrition Therapies: Adult diet Regular Current Oral Intake Average Meal Intake: 51-75%, 0% Average Supplements Intake: 51-75%, 76-100% Anthropometric Measures: Height: 162.6 cm (5' 4") Current Body Weight: 53.5 kg (118 lb) Weight Source: Not Specified Admission Body Weight: 47.6 kg (105 lb) Usual Body Weight: 49 kg (108 lb) (108#-04/27/24, 08/03/24- 89#) % Weight Change (Calculated): -1.9 Upper Tract Body Weight (lbs) (Calculated): 120 lbs Upper Tract Body Weight (Kg) (Calculated): 55 kg % Upper Tract Body Weight (Calculated): 98.3 % BMI (kg/m2) (Calculated): 20.2 Weight Adjustment For: No Adjustment BMI Categories: Underweight (BMI less than 22) age over 65 Nutrition Diagnosis: Moderate malnutrition related to inadequate protein-energy intake, impaired respiratory function, catabolic illness, increase demand for energy/nutrients as evidenced by moderate loss of subcutaneous fat, moderate muscle loss Nutrition Interventions: Nutrition Education/Counseling: No recommendation at this time Coordination of Nutrition Care: Continue to monitor while inpatient Plan of Care discussed with: Patient Goals: Goals: PO intake 75% or greater, by next RD assessment Nutrition Monitoring and Evaluation: Behavioral-Environmental Outcomes: None Identified Food/Nutrient Intake Outcomes: Diet Advancement/Tolerance, Food and Nutrient Intake, Supplement Intake Physical Signs/Symptoms Outcomes: Biochemical Data, GI Status, Nausea or Vomiting, Fluid Status or Edema, Nutrition Focused Physical Findings, Skin, Weight Discharge Planning: Continue current diet, Continue Oral Nutrition Supplement Gary Lugo RD Contact: *[phone] or via Secure Chat Hospitalist Progress Note 01/17/2025 [phone]: Please page me ([phone]) for patient care issues. [phone]: Please page [facility] Hospitalist for any issues. Subjective: Admit Date: 01/12/2025 PCP: HERMINIA CASE MD Room#: [id number] Interval History: No overnight issues. Denies chest pain or sob today and states she is breathing good today. Does NOT look sob laying in bed. Does admit to some sob with exertion which she states is her baseline. Clinically does look like she is doing good. No abdominal pain, nausea, vomiting. No fevers or chills. Adult diet Regular @[id number]@ 24HR INTAKE/OUTPUT: Intake/Output Summary (Last 24 hours) at 01/17/2025 0917 Last data filed at 01/16/2025 1746 Gross per 24 hour Intake 480 ml Output -- Net 480 ml Past Medical History: Medical History[1] LABS: CBC: Recent Labs 01/15/25 0533 01/17/25 0506 WBC 6.6 7.1 RBC 3.72* 3.77* HGB 12.0 10.9* 11.0* HCT 35.6 35.7 MCV 95.7 94.7 RDW 13.5 13.7 PLT 185 205 BMP: Recent Labs 01/15/2553201/16/25 0527 01/17/25 0506 NA 141 142 141 K 4.3 3.7 3.3* CL 100 100 99 CO2 35* 33* 37* BUN 18 22 16 CREATININE 0.52* 0.52* 0.44* GLUCOSE 148* 90 102 CALCIUM 8.7* 8.4* 8.1* ANIONGAP 6 9 5 LIVER PROFILE:No results for input(s): "AST", [...] the last 72 hours. Objective: Vitals: BP 144/89 (BP Location: Left arm, Patient Position: Lying) Pulse 97 Temp 36.5 C (97.7 F) (Temporal) Resp 18 Ht 5' 4" (1.626 m) Wt 118 lb 11.2 oz (53.8 kg) SpO2 95% BMI 20.37 kg/m Pulse Ox: SpO2 Av.5 % Min: 92 % Max: 96 % Supplemental O2: O2 Flow Rate (L/min): 5 L/min General appearance: No apparent distress, appears stated age, HEENT: Eyes: No scleral icterus Oral: Tongue is semi-moist Cardiovascular: S1/S2 heard, RRR Respiratory: decreased BS throughout but clear and no wheezing Abdomen: Soft, non-tender, non-distended bowel sounds positive Musculoskeletal: No obvious deformities seen Skin: No visible rashes or lesions. Medications: Continuous Meds[2] Scheduled Meds[3] Assessment Acute, acute on chronic, unstable/uncontrolled chronic problems/diagnoses: # Acute on chronic hypoxic and hypercarbic respiratory failure- 2/2 AECOPD, bronchiectasis exacerbation. Off NIV. Now weaned to 5L supplemental O2 today (4L baseline) and with severe dyspnea on minimal movement. Pulmonary following. On tapered steroids and breathing tx # Acute respiratory acidosis due to above - resolved and is off NIV (was on NIV in ICU) # Acute exacerbation of COPD with underlying advanced Emphysema - likely infectious etiology. On prednisone taper, duonebs and Dulera. Continue Cefepime as recommended per Pulmonary. On PRN oxycodone for dyspnea per palliative care. # Bronchiectasis with suspected acute lower respiratory infection - has hx of pseudomonas in past. Continue Cefepime as recommended per pulm/crit. Plan 7-14 day antibiotic course depending on clinical response per pulmonary. Continue hypertonic saline and mucinex for pulmonary toilet in setting of infection and mucous plugging. 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 # Acute metabolic encephalopathy due to hypercarbia/hypoxia. Resolved with improved respiratory status. # Hypokalemia - replace as needed Stable chronic problems affecting care, new non-acute diagnoses: # Hx of Anxiety with depression- continue home medications # History of asthma-stable # History of COPD (see above) # History of skin and cervical cancer # Chronic hypoxic respiratory failure-on 4 L oxygen outpatient at baseline # History of degenerative disc disease of lumbar spine with sciatica # History of lung nodules # History of thoracic compression fracture Plan - replace potassium - Continue IV cefepime as recommended per pulmonary with plans for 7 to 14-day treatment given history of Pseudomonas infection in the past and concern for recurrent lower respiratory infection with mucous plugging - Continue pulmonary toilet as per pulmonary with hypertonic saline and Mucinex - Continue tapered prednisone and breathing treatments as recommended per pulmonary - Pulmonary following - Geriatrics following - Palliative care following - Continue nasal cannula oxygen, wean as able back to baseline - Check daily labs Anticipate discharge home tomorrow if continues to do good? If okay with pulmonary Extended Emergency Contact Information Primary Emergency Contact: Karishma Deluca Address: [address] [place] [address] [place] [address] [facility] Relation: Daughter Secondary Emergency Contact: Jace Deluca Mobile Relation: Darshan Walker MD Division of Hospitalist Medicine Inpatient Medical Services/[facility] PAGER: Epic chat [1] Past Medical History: Diagnosis Date Abnormal stress test Acute exacerbation of chronic obstructive pulmonary disease (HCC) 04/12/2018 Allergic rhinitis 1956 Arthritis Asthma ([facility]/HCC) Bronchitis Cancer (HCC) skin Cervical cancer (HCC) Chest pain COPD (chronic obstructive pulmonary disease) ([facility]) USE OXYGEN 3 L AT NIGHT DDD (degenerative disc disease), cervical Defect, retina, with detachment right DJD (degenerative joint disease), lumbar Emphysema lung (HCC) Former smoker Hematuria SCHEDULED FOR THE PROCEDURE /SURGERY ON 02/11/2017 Hypokalemia Lung nodules Near syncope 09/19/2023 Osteoporosis Palpitations Pneumonia [id number] Recurrent major depression Sciatica Thoracic compression fracture (HCC) Vitamin D deficiency [2] [3] aspirin, 81 mg, Oral, Daily buPROPion XL, 150 mg, Oral, Daily busPIRone, 15 mg, Oral, BID cefepime, 2,000 mg, IntraVENous, q8h enoxaparin, 40 mg, SubCUTAneous, Daily fluticasone, 2 spray, Each Nostril, Daily folic acid, 1 mg, Oral, Daily guaiFENesin, 600 mg, Oral, BID influenza, 0.5 mL, IntraMUSCular, Prior to discharge ipratropium-albuterol, 3 mL, Nebulization, TID melatonin, 3 mg, Oral, Nightly mirtazapine, 15 mg, Oral, Nightly mometasone-formoterol, 2 puff, Inhalation, BID montelukast, 10 mg, Oral, Nightly pantoprazole, 40 mg, Oral, q AM predniSONE, 40 mg, Oral, Daily Followed by [START ON 01/18/2025] predniSONE, 30 mg, Oral, Daily Followed by [START ON 01/21/2025] predniSONE, 20 mg, Oral, Daily Followed by [START ON 01/24/2025] predniSONE, 10 mg, Oral, Daily senna-docusate sodium, 1 tablet, Oral, BID sodium chloride, 4 mL, Nebulization, BID [facility] Geriatric Medicine Inpatient Consult Service Admission Date: 01/12/2025 Assessment Principal Problem: COPD exacerbation (HCC) Active Problems: Debility Anxiety and depression Cognitive deficits At risk for delirium Other chronic pain Moderate malnutrition (CMS/HCC) (HCC) Plan Debility --contributing factors include medications, chronic respiratory failure, malnutrition, cognitive decline --using walker/wheelchair at baseline. Living at [facility] since July. Per daughter, she is not eligible for medicaid and may need alternative living arrangement. Social Work consulted. --PT and OT when able --dietitian following 01/16: anticipate return to SNF when discharged Depression and Anxiety --On Wellbutrin XL 150mg daily - consider weaning outpatient. May worsen anxiety and weight loss. --Continue Buspirone 15mg - takes TID at facility. On BID currently. Consider increasing to home (facility) dose. --Discontinued Paxil - has not taken since August. Removed from home medication list --Continue Mirtazapine 15mg at bedtime --Seroquel - she is not ordered Seroquel at the facility, however it is being filled at [facility] under prior PCP order for 200mg daily at bedtime as needed. Patient has been self-administering it at the facility. LEONELA Mari reviewed with daughter that the facility should be aware of any medication the patient is taking so that they can assess for side effects, interactions. Will continue Seroquel 50mg nightly PRN here. --Taking Hydroxyzine at facility. Recommend avoiding. --Recommend outpatient Psychiatry to follow 01/16: She is sleeping well despite the seroquel being lowered to 50 mg nightly PRN. She has been using it nightly. Monitor for withdrawal. If tolerating, continue the seroquel 50 mg nightly at discharge to SNF. Do recommend outpatient psychiatry follow up Cognitive deficits --+ history of cognitive decline at home. + history of decline in ADL's and IADL's --TSH 0.28 in July, B12 639 in July --Head imaging - Apr 2024 reviewed. September 2023 - Unchanged small area of encephalomalacia in the lateral aspect of the right occipital lobe. --History concerning for baseline cognitive deficits. Concern mood and medications also contributing. --Recommend outpatient follow up at [facility] for more in depth cognitive evaluation when in usual state of health if she returns home. 01/16: Stable. Recommend outpatient cognitive evaluation Chronic pain --takes Oxycodone 15mg every 6 hours as needed for pain or shortness of breath --Palliative medicine following --On Methocarbamol - takes 1,000 mg every 8 hours as needed at facility. Agree with lower dose of 500mg. Consider changing to low dose Tizanidine prn. 01/16: Stable pain. Recommendations stable At risk for delirium --noted to have delirium initially that is documented to be improving. --Risk factors: pain, acute illness, high risk medications, history of delirium, and baseline cognitive deficits --Encourage PO intake, time up in chair, family visits, supervised ambulation, and sleep hygiene --If agitated, assess for and consider treating for pain --QTc= 439 ms --Continue Seroquel 50mg HS PRN --Continue scheduled melatonin at HS --Monitor for constipation/urinary retention - last BM 01/15 --Possible medication contributions: steroids 01/16: She does not appear delirious Follow-up: will follow with you Subjective Chief Complaint: shortness of breath Geriatrics consulted for "ECF patient, patient on multiple antianxiety/antidepressants" HPI- The patient is known to me. 69 y.o. year-old female with PMH of COPD, cervical cancer, DDD, DJD, osteoporosis, depression, compression fracture, vitain D deficiency, anxiety, malnutrition, pneumonia presented to the hospital from [facility] for shortness of breath and hypoxia. Admitted to the ICU for acute encephalopathy, acute on chronic hypoxic/hypercapnic respiratory failure. Required NIV. Treated for COPD exacerbation, Bronchiectasis exacerbation. On Cefepime for possible pseudomonas respiratory infection. Transitioning out of ICU 01/15. Off NIV. Vitamin D 24 BMP: CO2 33 Interval History: -She is feeing pretty good today -Shortness of breath is improving -She is able to tell me she was treated for pneumonia -She reports her chronic pain, for which she takes oxycodone about 4 times a day. -She is sleeping OK. Says she normally takes 200 mg of seroquel at the SNF (she was using her own supply and the SNF had been unaware). She is still sleeping OK here despite only take 50 mg nightly. Review of Systems Constitutional: Negative for fever. Respiratory: Positive for cough. Negative for shortness of breath (improving). Cardiovascular: Negative for leg swelling. Gastrointestinal: Positive for nausea (sometimes). Negative for abdominal pain, constipation and diarrhea. Genitourinary: Negative for dysuria. Musculoskeletal: Positive for arthralgias and back pain. Psychiatric/Behavioral: Negative for confusion. Objective BP 142/82 (BP Location: Right arm, Patient Position: Lying) Pulse 89 Temp 36.7 C (98 F) (Temporal) Resp 20 Ht 5' 4" (1.626 m) Wt 106 lb (48.1 kg) SpO2 92% BMI 18.19 kg/m Intake/Output Summary (Last 24 hours) at 01/16/2025 1259 Last data filed at 01/16/2025 0549 Gross per 24 hour Intake 800 ml Output 350 ml Net 450 ml Wt Readings from Last 3 Encounters: 01/13/25 106 lb (48.1 kg) 08/20/24 93 lb 3.2 oz (42.3 kg) 08/03/24 89 lb 1.1 oz (40.4 kg) Current Medications[1] Physical Exam Constitutional: General: She is not in acute distress. Appearance: She is not ill-appearing. HENT: Head: Normocephalic and atraumatic. Cardiovascular: Rate and Rhythm: Normal rate and regular rhythm. Heart sounds: No murmur heard. No friction rub. No gallop. Pulmonary: Effort: Pulmonary effort is normal. Breath sounds: Decreased breath sounds (diffusely) present. No wheezing, rhonchi or rales. Abdominal: General: There is no distension. Palpations: Abdomen is soft. Tenderness: There is no abdominal tenderness. There is no guarding or rebound. Musculoskeletal: Right lower leg: No edema. Left lower leg: No edema. Neurological: Mental Status: She is alert. Psychiatric: Attention and Perception: Attention normal. Comments: No overt major cognitive issues in conversation Labs and Imaging: Recent Results (from the past 24 hours) Basic metabolic panel Collection Time: 01/16/25 5:27 AM Result Value Ref Range SODIUM 142 136 - 145 mmol/L POTASSIUM 3.7 3.5 - 5.1 mmol/L CHLORIDE 100 98 - 107 mmol/L CARBON DIOXIDE 33 (H) 23 - 31 mmol/L UREA NITROGEN 22 9 - 23 mg/dL CREATININE 0.52 (L) 0.58 - 1.12 mg/dL GLUCOSE 90 82 - 115 mg/dL CALCIUM 8.4 (L) 8.8 - 10.0 mg/dL ANION GAP 9 3 - 13 mmol/L eGFR >90.0 >60.0 mL/min/1.73m*2 Vitamin D Deficiency Screening (Vit D 25) Collection Time: 01/16/25 5:27 AM Result Value Ref Range VIT D 25-OH, TOTAL 24 See comment ng/mL Lab Results Component Value Date TSH 0.28 (L) 07/30/2024 Lab Results Component Value Date [id number] 639 07/30/2024 Lab Results Component Value Date VITD25 24 01/16/2025 [1] Current Facility-Administered Medications: acetaminophen (Tylenol) tablet 650 mg, 650 mg, Oral, q6h PRN, Clemente Lynn MD, 650 mg at 01/14/25 1636 albuterol (2.5 MG/3ML) 0.083% nebulizer solution 2.5 mg, 2.5 mg, Nebulization, q2h PRN, Clemente Lynn MD aspirin EC tablet 81 mg, 81 mg, Oral, Daily, Clemente Lynn MD, 81 mg at 01/16/25 0956 buPROPion XL (Wellbutrin XL) 24 hr tablet 150 mg, 150 mg, Oral, Daily, Clemente Lynn MD, 150 mg at 01/16/25 0957 busPIRone (Buspar) tablet 15 mg, 15 mg, Oral, BID, Clemente Lynn MD, 15 mg at 01/16/25 0956 cefepime (Maxipime) 2,000 mg in sodium chloride 0.9 % 50 mL IVPB Mini-Bag Plus, 2,000 mg, IntraVENous, q8h, Clemente Lynn MD, Stopped at 01/16/25 0958 enoxaparin (Lovenox) syringe 40 mg, 40 mg, SubCUTAneous, Daily, Clemente Lynn MD, 40 mg at 01/16/25 0956 fluticasone (Flonase) nasal spray 2 spray, 2 spray, Each Nostril, Daily, Srini Pires MD, 2 spray at 01/16/25 0958 folic acid (Folvite) tablet 1 mg, 1 mg, Oral, Daily, Clemente Lynn MD, 1 mg at 01/16/25 1244 guaiFENesin (Mucinex) 12 hr tablet 600 mg, 600 mg, Oral, BID, Srini Pires MD, 600 mg at 01/16/25 0956 influenza vaccine A&B surf ant adjuvanted (Fluad) HIGH-DOSE injection 0.5 mL, 0.5 mL, IntraMUSCular, Prior to discharge, Clemente Lynn MD ipratropium-albuterol (Duo-Neb) 0.5-2.5 mg/3 mL nebulizer solution 3 mL, 3 mL, Nebulization, TID, Clemente Lynn MD, 3 mL at 01/16/25 0809 melatonin tablet 3 mg, 3 mg, Oral, Nightly, Clemente Lynn MD, 3 mg at 01/15/25 2100 methocarbamol (Robaxin) tablet 500 mg, 500 mg, Oral, q8h PRN, Srini Pires MD, 500 mg at 01/14/25 1718 mirtazapine (Remeron) tablet 15 mg, 15 mg, Oral, Nightly, Clemente Lynn MD, 15 mg at 01/15/25 2100 mometasone-formoterol (Dulera 100) 100-5 MCG/ACT inhaler 2 puff, 2 puff, Inhalation, BID, Srini Pires MD, 2 puff at 01/15/25 1036 montelukast (Singulair) tablet 10 mg, 10 mg, Oral, Nightly, Clemente Lynn MD, 10 mg at 01/15/252058 mupirocin (Bactroban) 2 % ointment 1 Application, 1 Application, Nasal, BID, Clemente Lynn MD, 1 Application at 01/16/25 124 naloxone (Narcan) injection 0.4 mg, 0.4 mg, IntraVENous, q5 min PRN, Clemente Lynn MD ondansetron ODT (Zofran-ODT) disintegrating tablet 4 mg, 4 mg, Oral, q8h PRN, 4 mg at 01/15/25908 OR ondansetron (Zofran) injection 4 mg, 4 mg, IntraVENous, q6h PRN, Clemente Lynn MD, 4 mg at 01/12/252038 oxyCODONE (Roxicodone) immediate release tablet 15 mg, 15 mg, Oral, q6h PRN, Ruth العراقي MD, 15 mg at 01/16/25 100 pantoprazole (ProtoNix) EC tablet 40 mg, 40 mg, Oral, q AM, Clemente Lynn MD, 40 mg at 01/16/25955 predniSONE (Deltasone) tablet 40 mg, 40 mg, Oral, Daily, 40 mg at 01/16/25 0956 FOLLOWED BY [START ON 01/18/2025] predniSONE (Deltasone) tablet 30 mg, 30 mg, Oral, Daily FOLLOWED BY [START ON 01/21/2025] predniSONE (Deltasone) tablet 20 mg, 20 mg, Oral, Daily FOLLOWED BY [START ON 01/24/2025] predniSONE (Deltasone) tablet 10 mg, 10 mg, Oral, Daily, Srini Pires MD QUEtiapine (SEROquel) tablet 50 mg, 50 mg, Oral, Nightly PRN, Clemente Lynn MD, 50 mg at 01/15/252058 senna-docusate sodium (Senokot-S) 8.6-50 MG tablet 1 tablet, 1 tablet, Oral, BID, Ruth العراقي MD sodium chloride 3 % hypertonic nebulizer solution 4 mL, 4 mL, Nebulization, BID, Srini Pires MD, 4 mL at 01/16/25 0809 Hospitalist Progress Note 01/16/[id number]: Please page me ([phone]) for patient care issues. [phone]: Please page [facility] Hospitalist for any issues. Subjective: Admit Date: 01/12/2025 PCP: HERMINIA CASE MD Room#: B4-457/B4-457 A Interval History: No overnight issues. Denies chest pain or sob (although visibly looked a little sob??). States she is not sob at rest but only with exertion. Currently laying in bed. No abdominal pain, nausea, vomiting. No fevers or chills. Adult diet Regular @[id number]@ 24HR INTAKE/OUTPUT: Intake/Output Summary (Last 24 hours) at 01/16/2025 1030 Last data filed at 01/16/2025 0549 Gross per 24 hour Intake 800 ml Output 350 ml Net 450 ml Past Medical History: Medical History[1] LABS: CBC: Recent Labs 01/14/25 0658 01/15/25 0533 WBC -- 6.6 RBC -- 3.72* HGB 10.8* 12.0 10.9* HCT -- 35.6 MCV -- 95.7 RDW -- 13.5 PLT -- 185 BMP: Recent Labs 01/14/25 0344 01/15/25 0533 01/16/25 0527 NA 144 141 142 K 4.0 4.3 3.7 CL 101 100 100 CO2 36* 35* 33* BUN 20 18 22 CREATININE 0.55* 0.52* 0.52* GLUCOSE 93 148* 90 CALCIUM 8.7* 8.7* 8.4* ANIONGAP 7 6 9 LIVER PROFILE:No results for input(s): "AST", "ALT", [...] the last 72 hours. Objective: Vitals: BP 142/82 (BP Location: Right arm, Patient Position: Lying) Pulse 89 Temp 36.7 C (98 F) (Temporal) Resp 20 Ht 5' 4" (1.626 m) Wt 106 lb (48.1 kg) SpO2 92% BMI 18.19 kg/m Pulse Ox: SpO2 Av.8 % Min: 92 % Max: 96 % Supplemental O2: O2 Flow Rate (L/min): 6 L/min General appearance: No apparent distress, appears stated age, HEENT: Eyes: No scleral icterus Oral: Tongue is semi-moist Cardiovascular: S1/S2 heard, RRR Respiratory: decreased BS throughout but clear and now wheezing Abdomen: Soft, non-tender, non-distended bowel sounds positive Musculoskeletal: No obvious deformities seen Skin: No visible rashes or lesions. Medications: Continuous Meds[2] Scheduled Meds[3] Assessment Acute, acute on chronic, unstable/uncontrolled chronic problems/diagnoses: # Acute on chronic hypoxic and hypercarbic respiratory failure- 2/2 AECOPD, bronchiectasis exacerbation. Off NIV. Remains on 6L supplemental O2 (3L baseline) and with severe dyspnea on minimal movement. # Acute respiratory acidosis due to above - resolved and is off NIV (was on NIV in ICU) # Acute exacerbation of COPD- likely infectious etiology. On prednisone taper. Continue scheduled duonebs. Add dulera. # Bronchiectasis with suspected acute lower respiratory infection - has hx of pseudomonas in past. Continue Cefepime as recommended per pulm/crit. Plan 7-14 day antibiotic course depending on clinical response per pulmonary. Continue hypertonic saline and mucinex for pulmonary toilet in setting of infection and mucous plugging. 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 # Acute metabolic encephalopathy due to hypercarbia/hypoxia. Improving with improved respiratory status. Stable chronic problems affecting care, new non-acute diagnoses: # Hx of Anxiety with depression- continue home medications # History of asthma-stable # History of COPD (see above) # History of skin and cervical cancer # Chronic hypoxic respiratory failure-on 3 L oxygen outpatient # History of degenerative disc disease of lumbar spine with sciatica # History of lung nodules # History of thoracic compression fracture Plan - Patient just transferred out of the ICU under my service. Prior notes and records reviewed. Continue current treatment as recommended per ICU team/consultants - Continue IV cefepime as recommended per pulmonary with plans for 7 to 14-day treatment given history of Pseudomonas infection in the past and concern for recurrent lower respiratory infection with mucous plugging - Continue pulmonary toilet as per pulmonary with hypertonic saline and Mucinex - Continue tapered prednisone and breathing treatments as recommended per pulmonary - Continue nasal cannula oxygen, wean as able back to baseline - Check daily labs Extended Emergency Contact Information Primary Emergency Contact: Karishma Deluca Address: [address] [place] [address] [place] [address] [facility] Relation: Daughter Secondary Emergency Contact: Jace Deluca Mobile Relation: Darshan Walker MD Division of Hospitalist Medicine Inpatient Medical Services/[facility] PAGER: Epic chat [1] Past Medical History: Diagnosis Date Abnormal stress test Acute exacerbation of chronic obstructive pulmonary disease (HCC) 04/12/2018 Allergic rhinitis 195 Arthritis Asthma ([facility]/HCC) Bronchitis Cancer (HCC) skin Cervical cancer (HCC) Chest pain COPD (chronic obstructive pulmonary disease) ([facility]) USE OXYGEN 3 L AT NIGHT DDD (degenerative disc disease), cervical Defect, retina, with detachment right DJD (degenerative joint disease), lumbar Emphysema lung (HCC) Former smoker Hematuria SCHEDULED FOR THE PROCEDURE /SURGERY ON 02/11/2017 Hypokalemia Lung nodules Near syncope 09/19/2023 Osteoporosis Palpitations Pneumonia [id number] Recurrent major depression Sciatica Thoracic compression fracture (HCC) Vitamin D deficiency [2] [3] aspirin, 81 mg, Oral, Daily buPROPion XL, 150 mg, Oral, Daily busPIRone, 15 mg, Oral, BID cefepime, 2,000 mg, IntraVENous, q8h enoxaparin, 40 mg, SubCUTAneous, Daily fluticasone, 2 spray, Each Nostril, Daily folic acid, 1 mg, Oral, Daily guaiFENesin, 600 mg, Oral, BID influenza, 0.5 mL, IntraMUSCular, Prior to discharge ipratropium-albuterol, 3 mL, Nebulization, TID melatonin, 3 mg, Oral, Nightly mirtazapine, 15 mg, Oral, Nightly mometasone-formoterol, 2 puff, Inhalation, BID montelukast, 10 mg, Oral, Nightly mupirocin, 1 Application, Nasal, BID pantoprazole, 40 mg, Oral, q AM predniSONE, 40 mg, Oral, Daily Followed by [START ON 01/18/2025] predniSONE, 30 mg, Oral, Daily Followed by [START ON 01/21/2025] predniSONE, 20 mg, Oral, Daily Followed by [START ON 01/24/2025] predniSONE, 10 mg, Oral, Daily senna-docusate sodium, 1 tablet, Oral, BID sodium chloride, 4 mL, Nebulization, BID [facility] Respiratory Care Department Progress Note [...] crackles, Wheezes, or Diminished in >2 lobes 4 Aerosol Med(s), Bronchial Hygiene, Hyperinflation Cough & [...] PRN 5 Therapy(s) Indicated Yes/No Aerosol Medication Yes Hyperinflation No Bronchial Hygiene No High Flow Oxygen NO RT to enter/modify frequency of treatment order in EMR/EHR to match this RAP evaluation. Based on this RAP evaluation the following therapy is being changed to TID. Comments: Thank you for involving Respiratory in the care of this patient, Images from the original note were not included. [facility] Smoking Cessation Progress Note Smoking Cessation Intervention Session type: initial Session length: 15 minutes Smoking History: Started at 15, 0.5 PPD, increased to 2.5 PPD at 31, quit smoking cigarettes in 2019 and started vaping, uses a rechargeable vape, the amount she vapes per day depends on whether she is a home or in rehab Pack Years: 90.5 How important is it to the patient to quit? (0-not important, 10-extremely important): 8 How confident is the patient that they can quit? (0-not confident, 10-extremely confident): 5 Stage of Change: Pre-contemplation Fagerstrom Test for Nicotine Dependence Score: 6 Reasons to quit smoking identified: [x]Yes []No Triggers for smoking identified: [x]Yes []No Quit strategies for smoking identified: [x]Yes []No Nicotine withdrawal symptoms reviewed: [x]Yes []No Smoking urge distractions discussed: [x]Yes []No Request for nicotine withdrawal medication: []Yes [x]No If yes, provider notified: []Yes [x]No Ready to choose a quit date in the next 30 days: []Yes [x]No Additional Comments: Met with patient at bedside. She is pleasant and willing to discuss her smoking history and cessation with me. Smoking cessation education with contact information explained and given to patient. Physician Response Please review the following and provide your response below. Please clarify which of the following accurately describes the patient's condition: Patient with localized infection in lungs due to bronchiectasis and suspected pseudomonas respiratory infection. Metabolic encephalopathy is related to hypercarbia and not underlying sepsis. This documentation will become part of the patient's medical record. ICU Progress Note Name: Gonzalo Deluca : 1955(69 y.o.) Date: 01/15/25 Team: MICU Attending: Pranay Subjective: Hospital Summary: Admitted to ICU for respiratory failure requiring NIV. History of bronchiectasis, severe COPD, chronic hypoxic respiratory failure. Was residing at [facility]. Interval Events: Off NIV last night. Reports breathing improved. Some cough and congestion. Scheduled Meds:Scheduled Meds[1] Continuous Infusions:Continuous Meds[2] Objective: Last Vitals: BP MAP 137/99 (01/15/25700) 109 (01/15/25700) Arterial BP MAP Temp 37.3 C (99.2 F) (01/15/25451) Pulse 106 (01/15/25700) Resp (!) 33 (01/15/25700) SpO2 96 % (01/15/25601) Weight 48.1 kg (106 lb) (01/13/25599) BMI Body mass index is 18.19 kg/m . I/O: 01/14 700 - 01/15 659 In: 1475 [P.O.:1000; I.V.:475] Out: 800 [Urine:800] Oxygen Delivery: O2 Flow Rate (L/min): 6 L/min Invasive Lines / Tubes / Drains: Peripheral IV 01/12/25 Anterior;Left Forearm (Active) Number of days: 2 Peripheral IV 01/12/25 Anterior;Proximal;Right Forearm (Active) Number of days: 2 Central Line Indication: NA - patient does not have a central line Dooley Indications: NA - patient does not have a Dooley catheter Restraints: NA - patient is not restrained. Wounds: Wound/Incision 05/21/22 Traumatic Wrist Left;Posterior (Active) Date First Assessed/Time First Assessed: 05/21/221851 Present on Hospital Admission: Yes Primary Wound Type: Traumatic Location: Wrist Wound Location Orientation: Left;Posterior Wound Description (Comments): steri strips in place Constitutional: General Appearance []WDWN []Obese []Cachectic [x]Thin [x]Ill Eyes: Inspection of Pupils/Irises Pupils round and react: [x]Yes []No Sclera: []Icteric [x]Non-Icteric Inspection of Conjunctiva/Lids Conjunctiva: []Injected [x]Non-Injected Lids: [x]Intact []Lesion Present ENT/Mouth: External Inspection of ears/nose [x] Normal [] Scar/Lesion/Mass Inspection of teeth/lips/gums Dentition: [][place] Teeth []Dentures Lips/Gums: []Intact []Lesion Present Mucosa: [x]Brent [x]Moist []Dry Neck: External Appearance Overall Appearance: [x]Normal []Lesion/Mass/Crepitus Present Trachea midline: [x]Yes []No Thyroid [x]Normal []Enlarged []Tender []Mass []Absent Respiratory: Respiratory effort [x]Labored- with movement []Non-Labored [] Mechanically-Ventilated Auscultation []Clear []Crackles []Wheezes [x]Rhonchi Cardiovascular: Auscultation Rate: [x]Regular []Irregular []Tachycardia []Bradycardia Rhythm: [x]Regular []Irregular Murmur: []Present [x]Absent Extremities Peripheral Edema: []Present [x]Absent Varicosities: []Present [x]Absent Gastrointestinal: Abdomen Palpation: [x]Soft []Firm []Tender [x]Non-Tender []Distended [x]Non-distended Mass: []Present [x]Absent Bowel Sounds: [x]Present []Absent Hernia: []Present [x]Absent Liver/Spleen: []Hepatosplenomegaly [x]Organomegaly Absent Musculoskeletal: Inspection of Digits and Nails Cyanosis: []Present [x]Absent Clubbing: []Present [x]Absent Ischemia: []Present [x]Absent Infection: []Present [x]Absent Extremities [place] Equally: Except ([]RUE []RLE []LUE []LLE) Strength/Tone: Intact and Normal ([]RUE []RLE []LUE []LLE) Skin: Inspection [x]Normal []Rash []Lesion []Ulcer Palpation [x]Warm []Cool [x]Dry []Clammy []Nodules []Induration []Skin-tightening Cap-Refill: [] <3 sec [] >3 seconds (delayed) Neurologic: GCS EYE: 4 - Opens spontaneously GCS MOTOR: 6 - Obeys commands for movement GCS VERBAL: 5 - Oriented to person, place, time Total GCS: 15 [x] Sensation grossly intact Psych: Mental Status Alert: [x]Yes [] No Oriented: []x0 []X1 []X2 [x]x3 Mood/Affect [x]Normal []Flat []Agitated []Depressed []Anxious []Calm []Sedated []NAD [facility] within last 24 hours- BMP: Recent Labs 01/13/2541601/14/2534301/15/25 0533 NA 139 144 141 K 4.7 4.0 4.3 CL 101 101 100 CO2 34* 36* 35* BUN 17 20 18 CREATININE 0.49* 0.55* 0.52* CALCIUM 8.6* 8.7* 8.7* MG -- -- 1.8 PHOS -- -- 2.1* LFTs: Recent Labs 01/12/2594401/13/25416 AST 33 27 ALT 39* 33* PROT 7.1 6.4 ALBUMIN 3.3 2.9* BILITOT 0.4 0.3 ALKPHOS 154* 124 Glucose: Recent Labs 01/12/2594401/13/2541601/14/25343 01/15/25 0533 GLUCOSE 138* 98 93 148* Procal: Recent Labs 01/12/25 1229 PROCAL 0.21* CBC: Recent Labs 01/12/25 0945 01/12/25 0946 01/13/25 0417 01/14/25 0658 01/15/25 0533 WBC 13.7* -- 12.5* -- 6.6 HGB 11.5* < > 11.3* 10.2* 10.8* 12.0 10.9* HCT 38.5 -- 34.2* -- 35.6 PLT 168 -- 152 -- 185 MCV 96.5 -- 97.7 -- 95.7 RDW 13.9 -- 13.7 -- 13.5 < > = values in this interval not displayed. ABGs: Recent Labs 01/13/25 0417 01/14/25 0658 01/15/25 0533 PHART -- 7.391 -- LTT2EYS -- 61.8* -- PO2ART -- 73.2* -- [id number] -- 36.7* -- [id number] BiPAP BiPAP Nasal Cannula (LPM) Lactic Acid: Recent Labs 01/12/25 0945 LACTATE 0.8 Microbiology- Blood Cx: Lab Results Component Value Date BLOODCX No growth at 48 hours 01/12/2025 BLOODCX No growth at 48 hours 01/12/2025 Sputum Cx: Lab Results Component Value Date RESPCULT Many respiratory linus present. 08/01/2024 RESPCULT Many Pseudomonas aeruginosa (A) 08/01/2024 Gram Stain: Lab Results Component Value Date LABGRAM Few Epithelial cells per low power field (A) 08/01/2024 LABGRAM (A) 08/01/2024 Many Polymorphonuclear leukocytes per low power field LABGRAM Many Gram positive cocci (A) 08/01/2024 LABGRAM Moderate Gram negative diplococci (A) 08/01/2024 Imaging- abnormal CXR and prior CT chest reviewed/personally interpreted. Current CXR with emphysema/hyperinflation, bilateral parenchymal fibrotic changes and interstitial opacities. Prior CT- severe emphysema and bronchiectasis. RUL pneumonia, bronchiectasis, stable mild adenopathy, stable 7 mm JOSE nodule. Assessment and Plan: Principal Problem: COPD exacerbation (HCC) Active Problems: Moderate malnutrition (CMS/HCC) (HCC) Assessment and Plan: Acute on chronic hypoxic and hypercarbic respiratory failure- 2/2 AECOPD, bronchiectasis exacerbation. Off NIV. Remains on 6L supplemental O2 (3L baseline) and with severe dyspnea on minimal movement. AECOPD- likely infectious etiology. Change to prednisone taper today. Continue scheduled duonebs. Add dulera. Bronchiectasis with acute lower respiratory infection, pseudomonas in past. Continue Cefepime. Plan 7-14 day antibiotic course depending on clinical response. Added hypertonic saline and mucinex for pulmonary toilet in setting of infection and mucous plugging. 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 Acute metabolic encephalopathy due to hypercarbia/hypoxia. Improving with improved respiratory status. Anxiety with depression- continue home medications Goals of care discussion- DNR, CCA. OK for ICU, NIV. Palliative care following. Dyspnea control with oxycodone per palliative. GI Prophylaxis: Pantoprazole PO DVT Prophylaxis: Lovenox 40 q 24hr - creatinine clearance >30 Disposition: transfer to [facility], pulmonary to follow - consult placed. [1] aspirin, 81 mg, Oral, Daily buPROPion XL, 150 mg, Oral, Daily busPIRone, 15 mg, Oral, BID cefepime, 2,000 mg, IntraVENous, q8h enoxaparin, 40 mg, SubCUTAneous, Daily folic acid, 1 mg, Oral, Daily guaiFENesin, 600 mg, Oral, BID influenza, 0.5 mL, IntraMUSCular, Prior to discharge ipratropium-albuterol, 3 mL, Nebulization, Q4H while awake melatonin, 3 mg, Oral, Nightly methylPREDNISolone sod suc (PF), 60 mg, IntraVENous, q6h mirtazapine, 15 mg, Oral, Nightly montelukast, 10 mg, Oral, Nightly mupirocin, 1 Application, Nasal, BID pantoprazole, 40 mg, Oral, q AM PARoxetine, 30 mg, Oral, q AM sodium chloride, 4 mL, Nebulization, BID [2] Images from the original note were not included. Palliative Care Progress Note Chief Complaint: Gonzalo Deluca is a 69 y.o. female with chief complaint of SOB Palliative care consulted for goals of care Palliative Care is actively following. Assessment/Plan Goals of Care -Gonzalo Deluca retains capacity for medical decision-making -HCPOA: daughter Karishma [phone] - Another emergency contact listed is son Jace [phone] - pt admitted from [facility] - met with patient this am, introduced self and role - patient was calm, comfortable, stated she is feeling better - Code status already DNRCCA/DNI - patient stated her goal is to get better and go back to [facility] - provided empathetic listening and emotional support to patient - discussed with bedside RN Dyspnea - patient on Oxycodone 15mg q6h PRN SOB, used X 3 in last 24 hrs - will continue with same regimen for now Pain - patient on 15mg q6h PRN,used X 3 in alst 24 hrs At risk for OIC - patient had BM today - will place her on Senna S 1 tab BID - Acute on chronic hypoxic and hypercarbic respiratory failure - per Dr. 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 -albumin 2.9 -BMI 18.19 -poor PO intake Debility -increased weakness -admitted from [facility] -PT/OT as able -2nd admission since July 2024 Palliative Care Encounter -Code Status: DNR-CCA - will continue to follow for ongoing monitoring of progression of Dyspnea and Constipation as well as for appropriateness for hospice care due to Respiratory Failure - will continue to evaluate test results related to Respiratory Failure, medication effectiveness for Dyspnea, Pain, and Constipation, response to treatment of Respiratory Failure Total of 55 minutes spent on this encounter including Chart review, Patient visit and exam, Documentation in EHR, Care coordination, and Communicating with primary attending or other consultants. Discharge planning: Not ready for discharge due to uncontrolled symptoms Patient meets criteria for general inpatient hospice care: No Palliative Care IDT members involved: None Discussed the plan of care with the other interdisciplinary team (IDT) members of the Palliative Care and Hospice teams and Patient and Floor Nurse. Subjective: Subjective/Events Gonzalo Deluca is a 69 y.o. female admitted to [facility] 01/12 for SOB. Patient seen and examined this am. Discussed with bedside RN. Patient was lying comfortably on bed. Stated she feels like her breathing is better. Remains on oxygen 6l/min. Patient complained of back pain, stated oxycodone does help her back pain. Patient had bowel movement today. Palliative Care Assessments: Goals of care: Continue Current Management and Improve or Maintain Function/Quality of Life Advanced Directives: DNR Functional Assessment: PPS 60% amb reduced; can't do normal housework/sig disease; occ assistance; normal or reduced intake; full LOC or confusion Prognosis: depends upon goals of care and uncertain at this time Spiritual Assessment: No spiritual distress identified Bereavement and Grief: Grief Issues Not Identified PDMP/OARRS Reviewed: Yes-reviewed. Oxycodone, morphine sulfate, oxycodone-acetaminophen reported Social history: Marital status: single Children: 2 adult child(kyler) Living status: skilled nursing Work history: Retired due to disability [place] status: No Voodoo sharla: None ROS: See palliative care ROS/ESAS below; All other systems were reviewed and are negative. [place] Symptom Assessment Score [place] Score Pain Score (if non-verbal, add .FLACC below) 5 Tiredness Score 5 Nausea Score 0 Depression Score 0 Anxiety Score 0 Drowsiness Score 0 Anorexia Score (0= eating well, 10= not eating) 4 Wellbeing Score (10= worst sense of well-being) 6 Constipation 0 Dyspnea Score (0= no shortness of breath) 3 Family Meeting: Participants: patient Family meeting was held to discuss:Diagnosis and Prognosis, Goals of Care, Treatment Options, Symptom Management, Advanced Care Planning, and Prior Expressed Wishes Objective: BP 137/99 Pulse 106 Temp 37.3 C (99.2 F) (Oral) Resp (!) 33 Ht 5' 4" (1.626 m) Wt 106 lb (48.1 kg) SpO2 96% BMI 18.19 kg/m Physical Exam Constitutional: Appearance: She is ill-appearing. HENT: Head: Normocephalic and atraumatic. Right Ear: Ear canal normal. Left Ear: Ear canal normal. Mouth/Throat: Mouth: Mucous membranes are moist. Pharynx: Oropharynx is clear. Eyes: General: No scleral icterus. Right eye: No discharge. Left eye: No discharge. Conjunctiva/sclera: Conjunctivae normal. Pupils: Pupils are equal, round, and reactive to light. Cardiovascular: Rate and Rhythm: Regular rhythm. Tachycardia present. Pulses: Normal pulses. Heart sounds: Normal heart sounds. No murmur heard. Pulmonary: Breath sounds: No stridor. No wheezing or rhonchi. Comments: On oxygen 6l/min Bilateral coarse breath sounds present Abdominal: General: Bowel sounds are normal. There is no distension. Palpations: Abdomen is soft. Musculoskeletal: General: No swelling. Cervical back: Neck supple. Right lower leg: No edema. Left lower leg: No edema. Skin: General: Skin is warm. Coloration: Skin is not jaundiced. Neurological: Mental Status: She is alert and oriented to person, place, and time. Motor: Weakness present. Psychiatric: Mood and Affect: Mood normal. Medication information: 24-hour PRN meds received: Oxycodone 15 mg X 3, Robaxin 500 mg X 1, Tylenol 650 mg X 1 Results/Verification of Data Review Objective data reviewed (must include dates reviewed for labs, imaging reports and other specialty notes): - MAR, Vitals, OARRS reviewed 01/15/25 Data in Support of Terminal Illness: Is patient hospice appropriate? Eligible, but not consistent with GOC at this time Ruth العراقي MD Spiritual Care Note [facility] Palliative Care Patient Name:Gonzalo Deluca Chief Complaint: Chief Complaint Patient presents with Shortness of Breath Pt reports severe SOB from SNF with need for more than baseline oxygen. Reason for visit: Initial Visit Services Provided To:patient Background and visit note: Attempted to visit with patient. She was sleeping when I came to visit. I called her name but she didn't arouse from sleep. Will follow up. Care Plan: build trust. Follow Up: PRN and when patient is able. Debriefed: with christian science reader team. Charleydom Read 01/14/25 ICU Progress Note Name: Gonzalo eDluca : 1955(69 y.o.) Date: 01/14/25 Team: MICU Attending: Pranay Subjective: Hospital Summary: Admitted to ICU for respiratory failure requiring NIV. History of bronchiectasis, severe COPD, chronic hypoxic respiratory failure. Was residing at [facility]. Interval Events: Remained on NIV overnight. Requesting to come off. Reports chest congestion. Scheduled Meds:Scheduled Meds[1] Continuous Infusions:Continuous Meds[2] Objective: Last Vitals: BP MAP 127/72 (01/14/25 0502) 88 (01/14/25 0502) Arterial BP MAP Temp 36.4 C (97.6 F) (01/14/25 0341) Pulse 92 (01/14/25 0840) Resp (!) 26 (01/14/25 0840) SpO2 (!) 88 % (01/14/25 0840) Weight 48.1 kg (106 lb) (01/13/25 0600) BMI Body mass index is 18.19 kg/m . I/O: 01/13 07 - 01/14 0659 In: 480 [P.O.:480] Out: 950 [Urine:950] Ventilator: Resp Rate (Set): 18 FiO2 (%): (!) 6 % Inspiratory Time (sec): 0.9 sec Oxygen Delivery: O2 Flow Rate (L/min): 44 L/min Invasive Lines / Tubes / Drains: Peripheral IV 01/12/25 Anterior;Left Forearm (Active) Number of days: 2 Peripheral IV 01/12/25 Anterior;Proximal;Right Forearm (Active) Number of days: 2 Central Line Indication: NA - patient does not have a central line Dooley Indications: NA - patient does not have a Dooley catheter Restraints: NA - patient is not restrained. Wounds: Wound/Incision 05/21/22 Traumatic Wrist Left;Posterior (Active) Date First Assessed/Time First Assessed: 05/21/221851 Present on Hospital Admission: Yes Primary Wound Type: Traumatic Location: Wrist Wound Location Orientation: Left;Posterior Wound Description (Comments): steri strips in place Constitutional: General Appearance []WDWN []Obese []Cachectic [x]Thin [x]Ill Eyes: Inspection of Pupils/Irises Pupils round and react: [x]Yes []No Sclera: []Icteric [x]Non-Icteric Inspection of Conjunctiva/Lids Conjunctiva: []Injected [x]Non-Injected Lids: [x]Intact []Lesion Present ENT/Mouth: External Inspection of ears/nose [x] Normal [] Scar/Lesion/Mass Inspection of teeth/lips/gums Dentition: [][place] Teeth []Dentures Lips/Gums: []Intact []Lesion Present Mucosa: [x]Brent [x]Moist []Dry Neck: External Appearance Overall Appearance: [x]Normal []Lesion/Mass/Crepitus Present Trachea midline: [x]Yes []No Thyroid [x]Normal []Enlarged []Tender []Mass []Absent Respiratory: Respiratory effort [x]Labored []Non-Labored [] Mechanically-Ventilated Auscultation []Clear []Crackles []Wheezes [x]Rhonchi Cardiovascular: Auscultation Rate: [x]Regular []Irregular []Tachycardia []Bradycardia Rhythm: [x]Regular []Irregular Murmur: []Present [x]Absent Extremities Peripheral Edema: []Present [x]Absent Varicosities: []Present [x]Absent Gastrointestinal: Abdomen Palpation: [x]Soft []Firm []Tender [x]Non-Tender []Distended [x]Non-distended Mass: []Present [x]Absent Bowel Sounds: [x]Present []Absent Hernia: []Present [x]Absent Liver/Spleen: []Hepatosplenomegaly [x]Organomegaly Absent Musculoskeletal: Inspection of Digits and Nails Cyanosis: []Present [x]Absent Clubbing: []Present [x]Absent Ischemia: []Present [x]Absent Infection: []Present [x]Absent Extremities KNOX Equally: Except ([]RUE []RLE []LUE []LLE) Strength/Tone: Intact and Normal ([]RUE []RLE []LUE []LLE) Skin: Inspection [x]Normal []Rash []Lesion []Ulcer Palpation [x]Warm []Cool [x]Dry []Clammy []Nodules []Induration []Skin-tightening Cap-Refill: [] <3 sec [] >3 seconds (delayed) Neurologic: GCS EYE: 4 - Opens spontaneously GCS MOTOR: 6 - Obeys commands for movement GCS VERBAL: 5 - Oriented to person, place, time Total GCS: 15 [x] Sensation grossly intact Psych: Mental Status Alert: [x]Yes [] No Oriented: []x0 []X1 []X2 [x]x3 Mood/Affect [x]Normal []Flat []Agitated []Depressed []Anxious []Calm []Sedated []NAD [facility] Labs within last 24 hours- BMP: Recent Labs 01/12/2594401/13/2541601/14/25343 NA 141 139 144 K 4.4 4.7 4.0 CL 101 101 101 CO2 33* 34* 36* BUN 16 17 20 CREATININE 0.53* 0.49* 0.55* CALCIUM 8.9 8.6* 8.7* LFTs: Recent Labs 01/12/25 0901/13/25416 AST 33 27 ALT 39* 33* PROT 7.1 6.4 ALBUMIN 3.3 2.9* BILITOT 0.4 0.3 ALKPHOS 154* 124 Glucose: Recent Labs 01/12/25 0945 01/13/257 01/14/25 0344 GLUCOSE 138* 98 93 Procal: Recent Labs 01/12/25 1229 PROCAL 0.21* CBC: Recent Labs 01/12/25 0945 01/12/25 0946 01/13/2541601/14/25 0658 WBC 13.7* -- 12.5* -- HGB 11.5* < > 11.3* 10.2* 10.8* HCT 38.5 -- 34.2* -- PLT 168 -- 152 -- MCV 96.5 -- 97.7 -- RDW 13.9 -- 13.7 -- < > = values in this interval not displayed. ABGs: Recent Labs 01/12/25 1427 01/13/25 0417 01/14/25 0658 PHART -- -- 7.391 GKA1AHQ -- -- 61.8* PO2ART -- -- 73.2* [id number] -- -- 36.7* [id number] Non-Invasive Ventilator BiPAP BiPAP Lactic Acid: Recent Labs 01/12/25 0945 LACTATE 0.8 Microbiology- Blood Cx: Lab Results Component Value Date BLOODCX No growth at 24 hours 01/12/2025 BLOODCX No growth at 24 hours 01/12/2025 Sputum Cx: Lab Results Component Value Date RESPCULT Many respiratory linus present. 08/01/2024 RESPCULT Many Pseudomonas aeruginosa (A) 08/01/2024 Gram Stain: Lab Results Component Value Date LABGRAM Few Epithelial cells per low power field (A) 08/01/2024 LABGRAM (A) 08/01/2024 Many Polymorphonuclear leukocytes per low power field LABGRAM Many Gram positive cocci (A) 08/01/2024 LABGRAM Moderate Gram negative diplococci (A) 08/01/2024 Imaging- abnormal CXR and prior CT chest reviewed/personally interpreted. Current CXR with emphysema/hyperinflation, bilateral parenchymal fibrotic changes and interstitial opacities. Prior CT- severe emphysema and bronchiectasis. RUL pneumonia, bronchiectasis, stable mild adenopathy, stable 7 mm JOSE nodule. Assessment and Plan: Principal Problem: COPD exacerbation (HCC) Active Problems: Moderate malnutrition (CMS/HCC) ([facility]) Assessment and Plan: Acute on chronic hypoxic and hypercarbic respiratory failure- 2/2 AECOPD, bronchiectasis exacerbation. ABG this AM ordered and improved now showing chronic hypercarbia. Trial off NIV. Rx as below. Wean O2 as able. 3L at baseline. AECOPD- likely infectious etiology. Add solumedrol 60 mg IV q6. Anticipate gradual wean of steroids. Continue scheduled duonebs. Bronchiectasis with acute lower respiratory infection, pseudomonas in past. Continue Cefepime. Plan 7-14 day antibiotic course depending on clinical response. Add hypertonic saline and mucinex for pulmonary toilet in setting of infection and mucous plugging. 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 Acute metabolic encephalopathy due to hypercarbia/hypoxia. Improving with improved respiratory status. Anxiety with depression- continue home medications Goals of care discussion- DNR, CCA. OK for ICU, NIV. Palliative care following. Dyspnea control with oxycodone per palliative. GI Prophylaxis: Pantoprazole PO DVT Prophylaxis: Lovenox 40 q 24hr - creatinine clearance >30 Disposition: Remain in ICU Status Critical Care Time: 35 minutes Total critical care time caring for this patient with life threatening, unstable organ failure, including direct patient contact, management of life support systems, review of data including imaging and labs, discussions with other team members and physicians, excluding procedures. [1] aspirin, 81 mg, Oral, Daily buPROPion XL, 150 mg, Oral, Daily busPIRone, 15 mg, Oral, BID cefepime, 2,000 mg, IntraVENous, q8h enoxaparin, 40 mg, SubCUTAneous, Daily folic acid, 1 mg, Oral, Daily guaiFENesin, 600 mg, Oral, BID influenza, 0.5 mL, IntraMUSCular, Prior to discharge ipratropium-albuterol, 3 mL, Nebulization, Q4H while awake melatonin, 3 mg, Oral, Nightly methylPREDNISolone sod suc (PF), 60 mg, IntraVENous, q6h mirtazapine, 15 mg, Oral, Nightly montelukast, 10 mg, Oral, Nightly mupirocin, 1 Application, Nasal, BID pantoprazole, 40 mg, Oral, q AM PARoxetine, 30 mg, Oral, q AM sodium chloride, 4 mL, Nebulization, BID [2] Nutrition Assessment Type and Reason for Visit: Initial, RD Nutrition Re-Screen/LOS (ICU screen) Nutrition Recommendations/Plan: Continue with Adult diet Regular Initiate Ensure Plus High Protein TID per MNT protocol. Ensure Plus High Protein provides 350 kcals, 20g protein per serving. Please document pt's PO intakes via flowsheet to accurately assess PO intake adequacy. Suggest checking pt's Vitamin D level and supplement if deficient/insufficient. Monitor intakes, weights, and labs weekly. RD will follow. Malnutrition Assessment: Malnutrition Status: Moderate malnutrition Context: Chronic Illness Findings of the 6 clinical characteristics of malnutrition: Energy Intake: (Pt reports good appetite currently and [employer]) Weight Loss: (regaining some weight back; 89# (07/2024) cbw 106#) Body Fat Loss: (Moderate body fat loss) Orbital, Triceps, Buccal region Muscle Mass Loss: (Moderate muscle mass loss) Temples (temporalis), Clavicles (pectoralis & deltoids), Hand (interosseous), Scapula (trapezius) Fluid Accumulation: No significant fluid accumulation Desk Pens Assembler Strength: Not Performed Nutrition Assessment: Pt is a 69 y/o female admitted to [facility] with COPD exacerbation, transferred to ICU with SOB requiring NIV. Pt is now off NIV, able to eat and tolerate food. Denies chewing/swallowing deficits, reporting good appetite currently and prior to admission at the facility. Pt stated that she likes the food here. Pt is familiar with Ensure supplements and reports that she can drink TID if ordered for her. Pt stated that she has been regaining some weight back after her weight plummeted to 89# during her July 2024 admission. Wt history matches pt's weight report. CBW 106#. Pt has a pmhx of Arthritis, PNA, Cervical ca, COPD, Skin ca, Asthma Estimated Daily Nutrient Needs: Energy Requirements Based On: Kcal/kg Weight Used for Energy Requirements: Current Weight for Energy Calculation (kg): 48 kg Total Energy Requirements (kcals/day): 3746-4853 kcals (30-35 kcals/kg) Weight Used for Protein Requirements: Current Weight in Kg Used for Protein Requirements: 48 kg Estimated Total Protein (g/day): 58-77g (1.2-1.6g/kg) Estimated Daily Total Fluid (ml/day): 1440 ml/day or per MD Nutrition Related Findings: no edema; CO2 34, Cr 0.49, Ca++ 8.6, Albumin 2.9, ALT 33, Procalcitonin 0.21, Hgb 10.2, Hct 34.2; Melatonin, Remeron, ASA, Folvite, Paxil, PPI, Maxipime Wound Type: (redness to coccyx, scattered bruising) Current Nutrition Therapies: Adult diet Regular Current Oral Intake Average Meal Intake: 51-75% Average Supplements Intake: None Ordered Anthropometric Measures: Height: 162.6 cm (5' 4") Current Body Weight: 48.1 kg (106 lb) Weight Source: Not Specified Admission Body Weight: 47.6 kg (105 lb) Usual Body Weight: 49 kg (108 lb) (108#-04/27/24, 08/03/24- 89#) % Weight Change (Calculated): -1.9 [place] Body Weight (lbs) (Calculated): 120 lbs [place] Body Weight (Kg) (Calculated): 55 kg % [place] Body Weight (Calculated): 88.3 % BMI (kg/m2) (Calculated): 18.2 Weight Adjustment For: No Adjustment BMI Categories: Underweight (BMI less than 22) age over 65 Nutrition Diagnosis: Moderate malnutrition related to inadequate protein-energy intake, impaired respiratory function, catabolic illness, increase demand for energy/nutrients as evidenced by moderate loss of subcutaneous fat, moderate muscle loss Nutrition Interventions: Nutrition Education/Counseling: No recommendation at this time Coordination of Nutrition Care: Continue to monitor while inpatient Plan of Care discussed with: Patient Goals: Goals: PO intake 75% or greater, by next RD assessment Nutrition Monitoring and Evaluation: Behavioral-Environmental Outcomes: None Identified Food/Nutrient Intake Outcomes: Diet Advancement/Tolerance, Food and Nutrient Intake, Supplement Intake Physical Signs/Symptoms Outcomes: Biochemical Data, GI Status, Nausea or Vomiting, Fluid Status or Edema, Nutrition Focused Physical Findings, Skin, Weight Discharge Planning: Continue current diet, Continue Oral Nutrition Supplement Gary Lugo RD Contact: *[phone] or via Secure Chat Images from the original note were not included. [facility], Pulmonary Critical Care and Sleep Medicine [address] [place] [address] Critical Care Note: Patient - Gonzalo Deluca, Age - 69 y.o. - 1955 Room Number - [id number] [id number] [id number] Date of Admission - 01/12/2025 9:18 AM Hospital Day - 1 HPI/Subjective 69-year-old female with history of advanced emphysema chronic respiratory failure on supplemental oxygen transferred to the hospital from extended-care facility with complaints of shortness of breath, patient admitted to ICU as patient was needing noninvasive ventilation Active Hospital Problem List Problem List[1] Events of Past 24 Hours As above improved mentation All other systems reviewed Vitals weight is 48.1 kg (106 lb). Her axillary temperature is 36.8 C (98.2 F). Her blood pressure is 98/63 and her pulse is 83. Her respiration is 21 and oxygen saturation is 98%. Range Data Temperature Range: Temp: 36.8 C (98.2 F)Temp Av.7 C (98.1 F) Min: 36.1 C (97 F) Max: 37.1 C (98.8 F) BP Range: Systolic (24hrs), Av , Min:89 , Max:150 Diastolic (24hrs), Av, Min:62, Max:86 Pulse Range: Pulse Av.4 Min: 83 Max: 113 Respiration Range: Resp Av.9 Min: 14 Max: 27SpO2: 98 % 24hr Pulse Ox Range: SpO2 Av.9 % Min: 85 % Max: 100 % O2 Flow Rate (L/min): 6 L/min I/O Intake/Output Summary (Last 24 hours) at 01/13/2025 0625 Last data filed at 01/12/2025 1500 Gross per 24 hour Intake -- Output 400 ml Net -400 ml I/O last 3 completed shifts: In: - (0 mL/kg) Out: 400 (8.4 mL/kg) [Urine:400 (0.2 mL/kg/hr)] Weight: 47.6 kg @IODETAILS@ @[id number]@ Lines, ET tube, Devices Lines - Medications Scheduled Meds[2] PRN PRN Meds[3] IV Continuous Meds[4] Diet/Nutrition NPO diet with enteral medications Exam Constitutional - Awake General Appearance well developed, well nourished HEENT - Normocephalic, atraumatic. PERRLA, sclarea is anicteric, conjunctiva is pink, nasal mucosa is normal, no congestion, external ears are intact. Lungs - Poor air entry bilaterally, diminished breathe sounds at the bases, no obvious wheezing or crackles. Cardiovascular - Heart sounds are normal. normal rate and rhythm regular, no murmur, gallop or rub. Abdomen - soft, nontender, nondistended, no masses or organomegaly Neurologic - CN II-XII are grossly intact. There are no focal motor deficits grossly Skin - no bruising or bleeding, good turgor, normal warmth Extremities - no cyanosis, clubbing or edema Peripheral pulses- radial and pedal pulses 2+ bilaterally Psychiatric: appropriate, oriented to person, place and time/date, normal thought processes, normal thought content, normal affect Lab Results CBC Lab Results Component Value Date WBC 12.5 (H) 01/13/2025 RBC 3.50 (L) 01/13/2025 HGB 10.2 (L) 01/13/2025 HGB 11.3 (L) 01/13/2025 HCT 34.2 (L) 01/13/2025 PLT 152 01/13/2025 MCV 97.7 01/13/2025 MCH 29.1 01/13/2025 MCHC 29.8 (L) 01/13/2025 RDW 13.7 01/13/2025 NRBC 0.0 01/13/2025 LYMPHOPCT 6.3 (L) 01/13/2025 LYMPHOPCT 3 (L) 01/12/2025 MONOPCT 7.3 01/13/2025 MONOPCT 5 01/12/2025 EOSPCT 0.2 01/13/2025 EOSPCT 3 01/12/2025 BASOPCT 0.1 01/13/2025 BASOPCT 1 01/12/2025 MONOSABS 0.9 01/13/2025 LYMPHSABS 0.8 (L) 01/13/2025 EOSABS 0.0 01/13/2025 EOSABS 0.4 01/12/2025 BASOSABS 0.0 01/13/2025 BASOSABS 0.1 01/12/2025 BMP Lab Results Component Value Date NA 139 01/13/2025 K 4.7 01/13/2025 CL 101 01/13/2025 CO2 34 (H) 01/13/2025 BUN 17 01/13/2025 CREATININE 0.49 (L) 01/13/2025 GLUCOSE 98 01/13/2025 LFTS Lab Results Component Value Date ALKPHOS 124 01/13/2025 ALT 33 (H) 01/13/2025 AST 27 01/13/2025 PROT 6.4 01/13/2025 BILITOT 0.3 01/13/2025 ABG Results from last 7 days Lab Units 01/13/25 0417 01/12/25 1427 01/12/25 1229 SOURCE OF OXYGEN BiPAP Non-Invasive Ventilator BiPAP No components found for: "IFIO2", "MODE", "SETTIDVOL", SETPEEP INR Lab Results Component Value Date INR 1.0 11/21/2019 PROTIME 10.1 11/21/2019 APTT No results for input(s): "APTT" in the last 72 hours. Lactic Acid No components found for: "LACTA" BNP Recent Labs 01/12/25 0945 BNP 181 Cultures MRSA PCR positive for MSSA Radiology CXR Reviewed (See actual reports for details) ASSESSMENT AND PLAN Acute encephalopathy, mental status is improving with the combination of hypoxia/hypercapnia Acute on chronic hypoxic/hypercapnic respiratory failure, breaks from noninvasive ventilation as tolerated COPD exacerbation-bronchodilators/fam roids Bronchiectasis exacerbation with MRSA PCR positive for MSSA, continue antibiotics Severe malnutrition related to above Anxiety/depression continue home meds Wean oxygen as tolerated. Keep O2 sat 90-92% Stress ulcer prophylaxis Use replacement protocols DVT prophylaxis Case discussed with nurse and patient/family. Questions and concerns addressed. Critical Care Time: > 35 min Total critical care time caring for this patient with life threatening, unstable organ failure, including direct patient contact, management of life support systems, review of data including imaging and labs, discussions with other team members and physicians, excluding procedures. [1] Patient Active Problem List Diagnosis Poor venous access Other specified complication of vascular prosthetic devices, implants and grafts, initial encounter Chronic pain COPD (chronic obstructive pulmonary disease) ([facility]) DDD (degenerative disc disease), cervical Leukocytosis Malignant neoplasm of exocervix ([facility]) Recurrent major depression Pulmonary nodule S/P hysterectomy Sciatica Shortness of breath Supplemental oxygen dependent PNA (pneumonia) H/O: CVA (cerebrovascular accident) Former smoker Nondisplaced fracture of neck of left femur ([facility]) Lumbar compression fracture, closed, initial encounter ([facility]) Severe malnutrition (CMS/HCC) (HCC) Falls frequently Unintentional weight loss Debility PFO (patent foramen ovale) (HHS/HCC) Adult failure to thrive Anxiety and depression Cognitive deficits At risk for delirium COPD exacerbation (HCC) [2] aspirin, 81 mg, Oral, Daily buPROPion XL, 150 mg, Oral, Daily busPIRone, 15 mg, Oral, BID cefepime, 2,000 mg, IntraVENous, q8h enoxaparin, 40 mg, SubCUTAneous, Daily folic acid, 1 mg, Oral, Daily influenza, 0.5 mL, IntraMUSCular, Prior to discharge ipratropium-albuterol, 3 mL, Nebulization, Q4H while awake melatonin, 3 mg, Oral, Nightly mirtazapine, 15 mg, Oral, Nightly montelukast, 10 mg, Oral, Nightly mupirocin, 1 Application, Nasal, BID pantoprazole, 40 mg, Oral, q AM PARoxetine, 30 mg, Oral, q AM [3] PRN medications: albuterol, guaiFENesin, naloxone, ondansetron ODT OR ondansetron, oxyCODONE, QUEtiapine [4] documented in this encounter [facility] 01-22-2025 Hospital Discharg e navdeep Cross, DB - MOTION PICTURE SET GRIP - 01/22/2025 9:57 AM EST What to expect after a COPD exacerbation: Lingering symptoms including cough, sputum production, wheezing, shortness of breath, and even chest pain associated with coughing. These should improve over the course of a few weeks. Difficulty with activity. It is normal to have generalized fatigue and weakness after a hospitalization and flare up. Increase activity as tolerated. Rest when needed. Wearing an oxygen device if oxygen levels are low. Anxiety. This is usually associated with difficulty breathing and should improve over the course of a few weeks as symptoms improve. Follow up with your Pulmonary provider within 7 days of discharge Even with compliance to a plan of care, patients with COPD are at risk for respiratory infections. Worsening respiratory symptoms, called flare ups or exacerbations, can complicate underlying COPD and decrease quality and quantity of life. These symptoms include a change in cough, sputum production, wheezing, and shortness of breath. Patients often require steroids and/or antibiotics. An action plan will prepare you to identify some of the early warning signs of a potential problem, how to take action on your own, and when to reach out to your provider. COPD ACTION PLAN: GREEN ZONE: All Clear- Your Symptoms Are Under Control Sleeping well. Relaxed. Cough and sputum are at baseline. Able to perform normal daily activities without increased SOB. No mental fuzziness. This Means You Should: Take medications as prescribed. Continue supplemental O2 and sleep therapy if prescribed. Continue exercise/activity as tolerated. Eat a healthy diet. Manage stress. Avoid smoking and second hand smoke. Keep all doctor appointments. YELLOW ZONE: Caution as Your Health may be Worsening Increased cough and/or sputum production. Wheezing. Increased SOB with usual activity. Increased fatigue, restlessness, or anxiety. Increase in quick relief medications and/or no relief with quick relief medications. This Means You Should: At home, you can: Increase use of quick relief inhalers/nebulizer as prescribed. Practice purse-lipped breathing exercises. Monitor pulse oximetry. Increase O2 by 1-2L to maintain 88-92%. Start taking rescue medications as prescribed: Prednisone (if no relief with above actions): Antibiotic (if change in sputum color or fever): Most importantly call your Pulmonary provider: [phone] RED ZONE: Medical Alert Struggling to breath or unrelieved shortness of breath while sitting still. Unrelieved chest pain. Confusion/unclear thinking. Feeling faint. This Means You Should Call 911 or seek medical care at the closest ER Maria Alejandra Trevizo RN - 01/16/2025 10:22 AM EDT Images from the original note were not included. Continuity of Care Form Patient Name: Gonzalo Deluca : 1955 Admit date: 01/12/2025 Discharge date: 01/22/25 Code Status Order: DNR-CCA Advance Directives: N Admitting Physician: Clemente Lynn MD PCP: HERMINIA CASE MD Discharging Nurse: Maria Alejandra WHITEHEAD Discharging Hospital Unit/Room#: B4-457/[id number] A Discharging Unit Emergency Contact: Extended Emergency Contact Information Primary Emergency Contact: RaudelyahirKarishma Address: [address] [place] [address] [place] [address] [facility] Relation: Daughter Secondary Emergency Contact: Jace [...] Problems: Medical Problems Problem List * (Principal) COPD exacerbation (HCC) Other specified complication of vascular prosthetic devices, implants and grafts, initial encounter Nondisplaced fracture of neck of left femur (HCC) Lumbar compression fracture, closed, initial encounter (HCC) Severe malnutrition (CMS/HCC) (HCC) Falls frequently Unintentional weight loss Debility PFO (patent foramen ovale) (HHS/HCC) Adult failure to thrive Anxiety and depression Cognitive deficits At risk for delirium Poor venous access Chronic pain COPD (chronic obstructive pulmonary disease) (HCC) Overview Signed 01/01/2022 6:48 AM by Interface, Incoming Problems- [facility] Conversion On home 3-4L NC DDD (degenerative disc disease), cervical Leukocytosis Malignant neoplasm of exocervix (HCC) Moderate malnutrition (CMS/HCC) (HCC) (Chronic) Recurrent major depression Pulmonary nodule Overview Signed 01/01/2022 6:48 AM [...] infections Nurse Assessment: Last Vital Signs: BP 142/82 (BP Location: Right arm, Patient Position: Lying) Pulse 89 Temp 36.7 C (98 F) (Temporal) Resp 20 Ht 1.626 m (5' 4") Wt 48.1 kg (106 lb) SpO2 92% BMI 18.19 kg/m Last documented pain score (0-10 scale): Last Weight: Wt Readings from Last 1 Encounters: 01/13/25 48.1 kg (106 lb) Mental Status: SHAMA Patient Mental Status: oriented and alert IV Access: SHAMA IV Access: None Nursing Mobility/ADLs: Walking Independent Transfer Minimal assistance Bathing Minimal assistance Dressing Minimal assistance Toileting Minimal assistance Feeding Independent User Experience Lead Total assistance Med Delivery yes Wound Care Documentation and Therapy: Wound/Incision 05/21/22 Traumatic Wrist Left;Posterior (Active) Number of days: 970 Elimination: Continence: Bowel: yes Bladder: yes Urinary Catheter: None Colostomy/Ileostomy/Ileal Conduit: None Date of Last BM: 01/22/25 Intake/Output Summary (Last 24 hours) at 01/16/2025 1018 Last data filed at 01/16/2025 0549 Gross per 24 hour Intake 800 ml Output 350 ml Net 450 ml I/O last 3 completed shifts: In: 800 (16.6 mL/kg) [P.O.:750; IV Piggyback:50] Out: 350 (7.3 mL/kg) [Urine:350 (0.2 mL/kg/hr)] Weight: 48.1 kg Safety Concerns: none Impairments/Disabilities: none Nutrition Therapy: Current Nutrition Therapy: Oral diet: general Routes of Feeding: oral Liquids: thin liquids Daily Fluid Restriction: no Last Modified Barium Swallow with Video (Video Swallowing Test): not done Treatments at the Time of Hospital Discharge: Respiratory Treatments: aerosols, inhalers, O2 4L Oxygen Therapy: is on oxygen at 4 L/min per nasal cannula. Ventilator: No ventilator support Rehab Therapies: physical therapy, occupational therapy, nursing, and aide Weight Bearing Status/Restrictions: no restriction Other Medical Equipment (for information only, NOT a DME order): bedside commode, walker, and shower chair Other Treatments: none Patient's personal belongings (please select all that are sent with patient): clothing, shoes, glasses RN SIGNATURE: MANAGEMENT/SOCIAL WORK SECTION Inpatient Status Date: 01/12/25 Discharging to Facility/ Agency Name: [facility] Address: [address] [place] [address] Credit Report Checker/External Grinder signature: ICIAN SECTION Name: Gonzalo Deluca Prognosis: excellent Condition at Discharge: stable Rehab Potential (if transferring to Rehab): excellent Recommended Labs or Other Treatments After Discharge: none The individual is being admitted to a nursing facility directly from an [facility] or a unit of a [facility] that is not operated by or licensed by [facility] under section 5119.14 or 5160-3-15.1 5 The individual requires the level of services provided by a nursing facility for the condition for which he or she was treated in the hospital and, Physician Certification: I certify the above information and transfer of Gonzalo Deluca is necessary for the continuing treatment of the diagnosis listed and that she requires half-way facility for less than 30 days. Update Admission H&P: No change in H&P PHYSICIAN SIGNATURE: documented in this encounter [facility] 01-21-2025 Progress note Formatting of t his note might be different from the original. Care Management Progress Note Short Medical why still here: Patient remains on 4S today awaiting insurance authorization for [facility], where she is LTC. Continue on 4L O2 NC, respiratory treatments. ATBX regimen through today for Pseudomonas. Geriatrics/Palliative following. Planned Discharge Disposition: Prison Facility, [facility]. Waiting on response from facility to see if we can discharge patient back to LTC and they obtain insurance authorization for skilled rehab. If not, then we will start insurance authorization today internally. Follow up recommended for PFTs, scheduled on 02/25 per Pulm note. Barriers/Today we still Wait: Facility pre-cert, Clinical stability, Administering IV medications Length of Stay (Days): 9 GMLOS: 3.5 [facility] 01-20-2025 Progress note Formatting of t his note might be different from the original. Care Management Progress Note Short Medical why still here: Remains on 4S for acute on chronic hypoxic and hypercarbic respiratory failure secondary to acute exacerbation of COPD. Back to baseline 4L supplemental O2. Anticipate DC after auth received for skilled level of care at [facility]. Planned Discharge Disposition: [facility] Facility ([facility]) Barriers/Today we still Wait: Clinical stability, Facility pre-cert, Parts Washer recommendations (comment) (pending OT rec) Length of Stay (Days): 8 GMLOS: 3.5 PT/OT notes both rec return to ECF with PT/OT. Tasked SAW GRINDER Concrete Saw Operator to start [facility] Medicare auth for patient to return skilled. Spoke with attending - aware patient requires auth to return for SNF level of care. CM will continue to follow. [facility] 01-19-2025 Progress note Formatting of t his note might be different from the original. Care Management Progress Note Short Medical why still here: Remains on 4S for acute on chronic hypoxic and hypercarbic respiratory failure secondary to acute exacerbation of COPD. Back to baseline 4L supplemental O2. Pending sensitivity to see if she can DC on PO antibiotic - anticipate back tomorrow. Planned Discharge Disposition: Prison Facility ([facility] - plan to return skilled, need auth) Barriers/Today we still Wait: Clinical stability, Facility pre-cert, Parts Washer recommendations (comment) (pending OT rec) Length of Stay (Days): 7 GMLOS: 3.5 CM tasked to follow patient through the weekend to assist with discharge needs. Chart reviewed. Expected Discharge, Rapid Rounding, and Discharge Milestones / Delays updated as appropriate. CM portion of SHAMA complete. Tasked to follow for possible weekend DC back to [facility]. Checked [facility]Port - facility requesting patient return with skilled services if appropriate and would need auth. PT/OT pending. Will follow. recs return to ECF with PT. OT remains pending. Family wants patient to return skilled. Will need to start auth Mon. Placed Therapy See Today request for updated notes tomorrow. CM will follow. Facility updated via [facility]. T [facility] 01-17-2025 Progress note Formatting of t his note might be different from the original. Care Managment Initial Assessment Date: 01/17/2025 Patient Name: Gonzalo Deluca : 1955 Patient Information Source of Information: Patient Cognition/Language: Indian Permission given to speak with patient risk control representative/caregiver as indicated: No Confirmation of Payer with patient/family: No Payer Name: [facility] Medicare Dual Complete [place]: N/A Confirmation of Primary Care Physician: dr Herminia Case MD Primary Caregiver: Facility staff If assistance needed, confirmed caregiver ready, willing and able to care for patient at discharge: facility staff Confirmed with: [facility] Living Arrangements Current Residence: Number of Floors Number of Entry Steps: Bed/Bath Levels: Facility: Facility Name: [facility] Plan to Return: Yes Lives with: residents Support Systems: Children, Dtr and son Activities of Daily Living Ambulation: With walker/WC Bathing/Dressing: Indep Elimination/Continence/Toileting : Indep Feeding: Indep Who Assists with Activities of Daily Living: Facility medical staff if needed Instrumental Activities of Daily Living Prescription Coverage: Pharmacy Used: [id number] - [place], [place] - [address] AT [address] [facility] Medication Management: Facility medical staff Transportation/Shopping: facility Transportation Mode: Van transport Needs Assistance with Transportation at Discharge: Yes, back to facility with ambulance transport Meal Preparation: Staff at facility Laundry/Cleaning: Staff at facility Finances/Bill Paying: Staff at facility Communication: Indep Types of Care Services/Equipment Utilized Care Services: Staff at facility Dialysis Type: N/A Durable Medical Equipment: WC, Walker, Oxygen patient states 4L Patient's Goal/Discharge Plan Patient expects to be discharged to: Discharge Planning Actions: Patient's Choice Rights and [employer] and Collaborative Relationships Disclosed as Indicated for Post-Acute Care: Yes Interdisciplinary Team Engagement: Yes Social Work Referral for: N/A Additional Information: Patient is from [facility]. Patient states she has lived there since August 2024. She uses a FWW to ambulate in her room, transfers to independently. She uses chronic oxygen/nebulizer. Active with provider at facility, receives prescriptions on site. She states daughter and son come to visit. She states she is agreeable to return. Denies any home going needs at this time. CM will continue to follow for updates and discharge planning. Patience Almonte RN [facility] 01-17-2025 Progress note Formatting of t his note might be different from the original. COPD Navigator Note Introduced myself and explained my role. Reviewed Managing COPD at Home handout. Patient sitting upright in bed on 5L O2 with SpO2 95%. Wears 3-4L O2 at baseline. Patient states her breathing is improving but still not yet at baseline. She feels her breathing is 60-70% of normal. Breath sounds bilateral diminished. Strong congested nonproductive cough. Patient instructed on deep breathing and coughing techniques. Patient has established with COPD Clinic, Elyssa Tesfaye CNP. No PFTs . Reviewed home respiratory medications. Currently ordered: Albuterol MDI every 4 hours as needed, Breo daily, Spiriva daily. Patient has access to all of their medications and uses them as prescribed. Patient able to verbalize proper routine and schedule for inhaler use. Instructed on proper inhaler technique. Discussed Maintenance and Rescue medications. Patient is a former 0.5 ppd smoker. Quit 2019. Patient agreeable to assistance with scheduling hospital follow-up with pulmonary. [facility] 01-16-2025 Progress note Formatting of t his note might be different from the original. Care Management Progress Note Short Medical why still here: Patient remains on 4S today for COPD exacerbation, acute respiratory failure with hypercarbia/bronchiectasis. Complaints of AMS, dyspnea. Reports cough and congestion. Pall, Pulm, and Geriatrics all consulted and seen. Noted, patient with lung infection, pseudomonas. Continue on 6L, weaning to baseline 3L as tolerated. Prednisone taper, prn oxycodone for dyspnea. Noted by Pulm purse lip breathing. Continue Cefepime for 7-10 day course. Resp med management continued. Monitoring labs/lytes. No therapy indicated at this time. Planned Discharge Disposition: Prison Facility, returning to [facility]. Updated on clinicals via [facility]port today. Declined BIPAP. Vapes, smoking cessation. Hx of anxiety/depression. CM will continue to follow for updates and discharge planning. Barriers/Today we still Wait: Clinical stability, Parts Washer recommendations (Pulmonology) Length of Stay (Days): 4 GMLOS: 3.5 [facility] 01-16-2025 Consult note Formatting of th is note is different from the original. Images from the original note were not included. [facility], Pulmonary Medicine [address], [place] [address] Patient - Gonzalo Deluca [facility] # - [id number] - 1955 Date of Admission - 01/12/2025 9:18 AM Date of evaluation - 01/16/2025 Room - [facility] A Hospital Day - 4 Consulting - Austin Walker MD Primary Care Physician - HERMINIA CASE MD Active Hospital Problem List: Problem List[1] Reason for Consult: COPD AE, respiratory failure, bronchiectasis, ICU follow up History of Present Illness: Gonzalo Deluca is a 69 y.o. female admitted for chief complaint of shortness of breath. SpO2 in the 85th percentile on arrival to ED. VBG 7.26/ 80.8/ 35.8. Patient was placed on NIV and admitted to ICU for acute hypoxic and hypercapnic respiratory failure. CXR negative for acute infiltrate. Patient currently resting in bed. Noted to be have some shortness of breath and pursed lip breathing after ambulating back to bed from [facility]. She denied any chest pain, fever, chills, nausea or vomiting. Productive cough with yellowish phlegm. Denied any hemoptysis. She is currently residing at [facility] for skilled therapy with hopes to transition to assisted living. Wears 3-4 liters NC at baseline. Currently requiring 6 with SpO2 around 90-92%. She denied use of NIPPV at home. Established patient with [facility] pulmonary (Dr. Tran and Elyssa Tesfaye 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). On Breo ellipta & Spiriva. Patient states she is no longer using cigarettes but continues to vape. Medical History: Past Medical History: Medical History[2] Past Surgical History: Surgical History[3] Social History Social History Substance and Sexual Activity Alcohol Use Not Currently Comment: Approx once a year Social History Substance and Sexual Activity Drug Use Never Tobacco Use History[4] Family History Family History[5] Review of Systems: Review of Systems Constitutional: Negative for chills and fever. HENT: Negative for postnasal drip, rhinorrhea, sinus pressure, sore throat and trouble swallowing. Respiratory: Positive for cough, shortness of breath and wheezing. Cardiovascular: Negative for chest pain, palpitations and leg swelling. Gastrointestinal: Negative for nausea and vomiting. Neurological: Positive for weakness. Objective: Vitals: BP 142/82 (BP Location: Right arm, Patient Position: Lying) Pulse 89 Temp 36.7 C (98 F) (Temporal) Resp 20 Ht 5' 4" (1.626 m) Wt 106 lb (48.1 kg) SpO2 92% BMI 18.19 kg/m Physical Exam Vitals and nursing note reviewed. Constitutional: Appearance: She is cachectic. She is ill-appearing. HENT: Nose: No congestion or rhinorrhea. Eyes: General: No scleral icterus. Right eye: No discharge. Left eye: No discharge. Cardiovascular: Rate and Rhythm: Normal rate and regular rhythm. Pulmonary: Effort: Tachypnea present. Breath sounds: Decreased air movement present. No stridor. Wheezing and rhonchi present. Comments: Pursed lip breathing after transitioning back to bed from bedside commode. Chest: Chest wall: No tenderness. Musculoskeletal: Right lower leg: No edema. Left lower leg: No edema. Skin: General: Skin is warm and dry. Coloration: Skin is not jaundiced. Neurological: Mental Status: She is alert and oriented to person, place, and time. Mental status is at baseline. Psychiatric: Mood and Affect: Mood normal. Behavior: Behavior normal. Medications: Allergies[6] Current Medications[7] PRN Meds[8] Current Outpatient Medications Medication Instructions albuterol 108 (90 Base) MCG/ACT inhaler 2 puffs, Every 4 hours PRN albuterol 2.5 mg, Nebulization, 2 times daily aspirin 81 mg buPROPion XL (WELLBUTRIN XL) 150 mg, Daily busPIRone (BUSPAR) 15 mg, Oral, 2 times daily calcium carbonate-cholecalciferol (Oyster Shell) 250-3.125 MG-MCG tablet 1 tablet Diclofenac Sodium (VOLTAREN) 4 g, Topical, 2 times daily fluticasone (Flonase) 50 MCG/ACT nasal spray 2 sprays, Daily Fluticasone Furoate-Vilanterol (Breo Ellipta) 200-25 MCG/ACT aerosol powder 1 puff, Daily Fluticasone-Salmeterol 250-50 MCG/ACT aerosol powder 250 mcg, Daily folic acid (FOLVITE) 1 mg, Oral, Daily guaiFENesin (MUCINEX) 1,200 mg, Oral, 2 times daily PRN, Do not crush, chew, or split. hydrOXYzine pamoate (VISTARIL) 25 mg magnesium oxide (MAG-OX) 400 mg, Daily melatonin 3 mg, Oral, Nightly mirtazapine (REMERON) 15 mg, Oral, Nightly montelukast (SINGULAIR) 10 mg, Nightly oxyCODONE (ROXICODONE) 15 mg, Every 6 hours PRN PARoxetine (PAXIL) 30 mg, Oral, Every morning QUEtiapine (SEROQUEL) 50 mg, Oral, Nightly PRN tiotropium (Spiriva Respimat) 2.5 MCG/ACT inhaler 2 puffs, Daily Zinc 50 mg Labs: CBC: Recent Labs 01/14/2565701/15/25532 WBC -- 6.6 HGB 10.8* 12.0 10.9* HCT -- 35.6 PLT -- 185 MCV -- 95.7 RDW -- 13.5 BMP: Recent Labs 01/14/2534301/15/2553201/16/25526 NA 144 141 142 K 4.0 4.3 3.7 CL 101 100 100 CO2 36* 35* 33* BUN 20 18 22 CREATININE 0.55* 0.52* 0.52* CALCIUM 8.7* 8.7* 8.4* MG -- 1.8 -- PHOS -- 2.1* -- Glucose: Recent Labs 01/14/2534301/15/2533 01/16/25526 GLUCOSE 93 148* 90 ABGs: Recent Labs 01/14/2565701/15/25532 PHART 7.391 -- NKQ2FQR 61.8* -- PO2ART 73.2* -- APG7TTC 36.7* -- O3CCAECG BiPAP Nasal Cannula (LPM) Microbiology: COVID/Flu/RSV: Negative Respiratory pathogens PCR: Negative Urine antigens: Negative Blood cultures: NGTD MRSA PCR: + Staph aureus, negative mecA gene Imaging/ Testing: CXR 01/13/25: FINDINGS: LUNGS AND PLEURAL SPACES: COPD, unchanged. Coarse bilateral interstitial lung markings. No consolidation. No pneumothorax. HEART: Unremarkable. No cardiomegaly. MEDIASTINUM: Unremarkable. Normal mediastinal contour. BONES/JOINTS: Thoracic degenerative spondylosis. No acute fracture. TUBES, LINES AND DEVICES: Left IJ MediPort catheter tip overlies mid SVC, unchanged. IMPRESSION: Emphysema, unchanged. Parenchymal fibrotic changes. Left subclavian MediPort, unchanged Assessment and Plan/Recommendations: Acute on chronic hypoxic & hypercarbic respiratory failure -Secondary to COPD AE and bronchiectasis exacerbation -Slowly improving. Required NIV while in ICU. States it helped her breathing. Given persistent hypercarbia while using BiPAP patient would likely qualify for NIV however she states she is not interested in using at home. Continue to monitor off. -Wean supplemental oxygen as patient tolerates. Baseline 4 liters at home. Currently requiring 6 liters NC with SpO2 in low 90's at rest. Goal SpO2 > 88% -Severe dyspnea and purse lip breathing with minimal movement. COPDAE/ Advanced emphysema -Continue Dulera and scheduled DuoNeb's. Resume Breo and Spiriva at discharge -Prednisone taper as ordered -PRN oxycodone for dyspnea per palliative care Bronchiectasis with concern for acute LRTI, Pseudomonas in the past -Prior CT chest in November with diffuse bronchiectasis, mucus plugging. Hx pseudomonas in the past. -Patient reports productive cough with yellow phlegm. Send sputum culture and pneumonia PCR -Continue Cefepime. Plan for 7-14 day antibiotic course depending on clinical response. 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 Counseled on smoking cessation and advised to quit smoking completely Advance Directive: DNR-CCA Discharge planning: TBD Case discussed with nurse and patient Questions and concerns addressed.. I have discussed the patient's case and plan of care with my collaborating physician Dr. Houston [1] Patient Active Problem List Diagnosis Poor venous access Other specified complication of vascular prosthetic devices, implants and grafts, initial encounter Chronic pain COPD (chronic obstructive pulmonary disease) (HCC) DDD (degenerative disc disease), cervical Leukocytosis Malignant neoplasm of exocervix (HCC) Moderate malnutrition (CMS/HCC) (HCC) Recurrent major depression Pulmonary nodule S/P hysterectomy Sciatica Shortness of breath Supplemental oxygen dependent PNA (pneumonia) H/O: CVA (cerebrovascular accident) Former smoker Nondisplaced fracture of neck of left femur (HCC) Lumbar compression fracture, closed, initial encounter (HCC) Severe malnutrition (CMS/HCC) (HCC) Falls frequently Unintentional weight loss Debility PFO (patent foramen ovale) (HHS/HCC) Adult failure to thrive Anxiety and depression Cognitive deficits At risk for delirium COPD exacerbation ([facility]) [2] Past Medical History: Diagnosis Date Abnormal stress test Acute exacerbation of chronic obstructive pulmonary disease (HCC) 04/12/2018 Allergic rhinitis 1956 Arthritis Asthma (HHS/HCC) Bronchitis Cancer (HCC) skin Cervical cancer (HCC) Chest pain COPD (chronic obstructive pulmonary disease) (HCC) USE OXYGEN 3 L AT NIGHT DDD (degenerative disc disease), cervical Defect, retina, with detachment right DJD (degenerative joint disease), lumbar Emphysema lung (HCC) Former smoker Hematuria SCHEDULED FOR THE PROCEDURE /SURGERY ON 02/11/2017 Hypokalemia Lung nodules Near syncope 09/19/2023 Osteoporosis Palpitations Pneumonia [id number] Recurrent major depression Sciatica Thoracic compression fracture (HCC) Vitamin D [...] fixation femoral fracture TUBAL LIGATION 1992 [4] Social History Tobacco Use Smoking Status Former Current packs/day: 0.00 Average packs/day: 1.8 packs/day for 49.0 years (90.5 ttl pk-yrs) Types: Cigarettes Start date: 1970 Quit date: 11/20/2019 Years since quittin.1 Passive exposure: Past Smokeless Tobacco Never Tobacco Comments Started at 15, 0.5 PPD, increased to 2.5 PPD at 31, quit smoking cigarettes in 2019 and started vaping, uses a rechargeable vape, the amount she vapes per day depends on whether she is a home or in rehab. 01/15/2025 [5] Family History Problem Relation Name Age of Onset Colon cancer Neg Hx Ovarian cancer Neg Hx Cancer Mother breast- to liver Cancer Sister breast Cancer Father lung to brain No Known Problems Brother Uterine cancer Neg Hx [6] Allergies Allergen Reactions Pollen Extract Unknown [7] Current Facility-Administered Medications: acetaminophen (Tylenol) tablet 650 mg, 650 mg, Oral, q6h PRN, Clemente Lynn MD, 650 mg at 01/14/25 1636 albuterol (2.5 MG/3ML) 0.083% nebulizer solution 2.5 mg, 2.5 mg, Nebulization, q2h PRN, Clemente Lynn MD aspirin EC tablet 81 mg, 81 mg, Oral, Daily, Clemente Lynn MD, 81 mg at 01/16/25 0956 buPROPion XL (Wellbutrin XL) 24 hr tablet 150 mg, 150 mg, Oral, Daily, Clemente Lynn MD, 150 mg at 01/16/25 0957 busPIRone (Buspar) tablet 15 mg, 15 mg, Oral, BID, Clemente Lynn MD, 15 mg at 01/16/25 0956 cefepime (Maxipime) 2,000 mg in sodium chloride 0.9 % 50 mL IVPB Mini-Bag Plus, 2,000 mg, IntraVENous, q8h, Clemente Lynn MD, Stopped at 01/16/25 0958 enoxaparin (Lovenox) syringe 40 mg, 40 mg, SubCUTAneous, Daily, Clemente Lynn MD, 40 mg at 01/16/25 0956 fluticasone (Flonase) nasal spray 2 spray, 2 spray, Each Nostril, Daily, Srini Pires MD, 2 spray at 01/16/25 0958 folic acid (Folvite) tablet 1 mg, 1 mg, Oral, Daily, Clemente Lynn MD, 1 mg at 01/15/25 0826 guaiFENesin (Mucinex) 12 hr tablet 600 mg, 600 mg, Oral, BID, Srini Pires MD, 600 mg at 01/16/25 0956 influenza vaccine A&B surf ant adjuvanted (Fluad) HIGH-DOSE injection 0.5 mL, 0.5 mL, IntraMUSCular, Prior to discharge, lCemente Lynn MD ipratropium-albuterol (Duo-Neb) 0.5-2.5 mg/3 mL nebulizer solution 3 mL, 3 mL, Nebulization, TID, Clemente Lynn MD, 3 mL at 01/16/25 0809 melatonin tablet 3 mg, 3 mg, Oral, Nightly, Clemente Lynn MD, 3 mg at 01/15/252099 methocarbamol (Robaxin) tablet 500 mg, 500 mg, Oral, q8h PRN, Srini Pires MD, 500 mg at 01/14/25 171 mirtazapine (Remeron) tablet 15 mg, 15 mg, Oral, Nightly, Clemente Lynn MD, 15 mg at 01/15/252099 mometasone-formoterol (Dulera 100) 100-5 MCG/ACT inhaler 2 puff, 2 puff, Inhalation, BID, Srini Pires MD, 2 puff at 01/15/25 103 montelukast (Singulair) tablet 10 mg, 10 mg, Oral, Nightly, Clemente Lynn MD, 10 mg at 01/15/252058 mupirocin (Bactroban) 2 % ointment 1 Application, 1 Application, Nasal, BID, Clemente Lynn MD, 1 Application at 01/15/25 08 naloxone (Narcan) injection 0.4 mg, 0.4 mg, IntraVENous, q5 min PRN, Clemente Lynn MD ondansetron ODT (Zofran-ODT) disintegrating tablet 4 mg, 4 mg, Oral, q8h PRN, 4 mg at 01/15/25 09 OR ondansetron (Zofran) injection 4 mg, 4 mg, IntraVENous, q6h PRN, Clemente Lynn MD, 4 mg at 01/12/252038 oxyCODONE (Roxicodone) immediate release tablet 15 mg, 15 mg, Oral, q6h PRN, Ruth العراقي MD, 15 mg at 01/16/25 100 pantoprazole (ProtoNix) EC tablet 40 mg, 40 mg, Oral, q AM, Clemente Lynn MD, 40 mg at 01/16/25 0956 predniSONE (Deltasone) tablet 40 mg, 40 mg, Oral, Daily, 40 mg at 01/16/25 0956 FOLLOWED BY [START ON 01/18/2025] predniSONE (Deltasone) tablet 30 mg, 30 mg, Oral, Daily FOLLOWED BY [START ON 01/21/2025] predniSONE (Deltasone) tablet 20 mg, 20 mg, Oral, Daily FOLLOWED BY [START ON 01/24/2025] predniSONE (Deltasone) tablet 10 mg, 10 mg, Oral, Daily, Srini Pires MD QUEtiapine (SEROquel) tablet 50 mg, 50 mg, Oral, Nightly PRN, Clemente Lynn MD, 50 mg at 01/15/252058 senna-docusate sodium (Senokot-S) 8.6-50 MG tablet 1 tablet, 1 tablet, Oral, BID, Ruth العراقي MD sodium chloride 3 % hypertonic nebulizer solution 4 mL, 4 mL, Nebulization, BID, Srini Pires MD, 4 mL at 01/16/25 0809 [8] PRN medications: acetaminophen, albuterol, methocarbamol, naloxone, ondansetron ODT OR ondansetron, oxyCODONE, QUEtiapine Cosigned by Patricia Houston DO at 01/16/2025 2:27 PM EDT [facility] 01-16-2025 Consult note Formatting of th is note is different from the original. Images from the original note were not included. [facility], Pulmonary Medicine [address] [place] [id number] [id number] 1955 Date of Admission - 01/12/2025 9:18 AM Date of evaluation - 01/16/2025 Room - -457/[id number] A Hospital Day - 4 Consulting - Austin Walker MD Primary Care Physician - HERMINIA CASE MD Active Hospital Problem List: Problem List[1] Reason for Consult: COPD AE, respiratory failure, bronchiectasis, ICU follow up History of Present Illness: Gonzalo Deluca is a 69 y.o. female admitted for chief complaint of shortness of breath. SpO2 in the 85th percentile on arrival to ED. VBG 7.26/ 80.8/ 35.8. Patient was placed on NIV and admitted to ICU for acute hypoxic and hypercapnic respiratory failure. CXR negative for acute infiltrate. Patient currently resting in bed. Noted to be have some shortness of breath and pursed lip breathing after ambulating back to bed from [facility]. She denied any chest pain, fever, chills, nausea or vomiting. Productive cough with yellowish phlegm. Denied any hemoptysis. She is currently residing at [facility] for skilled therapy with hopes to transition to assisted living. Wears 3-4 liters NC at baseline. Currently requiring 6 with SpO2 around 90-92%. She denied use of NIPPV at home. Established patient with [facility] pulmonary (Dr. Tran and Elyssa Tesfaye 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). On Breo ellipta & Spiriva. Patient states she is no longer using cigarettes but continues to vape. Medical History: Past Medical History: Medical History[2] Past Surgical History: Surgical History[3] Social History Social History Substance and Sexual Activity Alcohol Use Not Currently Comment: Approx once a year Social History Substance and Sexual Activity Drug Use Never Tobacco Use History[4] Family History Family History[5] Review of Systems: Review of Systems Constitutional: Negative for chills and fever. HENT: Negative for postnasal drip, rhinorrhea, sinus pressure, sore throat and trouble swallowing. Respiratory: Positive for cough, shortness of breath and wheezing. Cardiovascular: Negative for chest pain, palpitations and leg swelling. Gastrointestinal: Negative for nausea and vomiting. Neurological: Positive for weakness. Objective: Vitals: BP 142/82 (BP Location: Right arm, Patient Position: Lying) Pulse 89 Temp 36.7 C (98 F) (Temporal) Resp 20 Ht 5' 4" (1.626 m) Wt 106 lb (48.1 kg) SpO2 92% BMI 18.19 kg/m Physical Exam Vitals and nursing note reviewed. Constitutional: Appearance: She is cachectic. She is ill-appearing. HENT: Nose: No congestion or rhinorrhea. Eyes: General: No scleral icterus. Right eye: No discharge. Left eye: No discharge. Cardiovascular: Rate and Rhythm: Normal rate and regular rhythm. Pulmonary: Effort: Tachypnea present. Breath sounds: Decreased air movement present. No stridor. Wheezing and rhonchi present. Comments: Pursed lip breathing after transitioning back to bed from bedside commode. Chest: Chest wall: No tenderness. Musculoskeletal: Right lower leg: No edema. Left lower leg: No edema. Skin: General: Skin is warm and dry. Coloration: Skin is not jaundiced. Neurological: Mental Status: She is alert and oriented to person, place, and time. Mental status is at baseline. Psychiatric: Mood and Affect: Mood normal. Behavior: Behavior normal. Medications: Allergies[6] Current Medications[7] PRN Meds[8] Current Outpatient Medications Medication Instructions albuterol 108 (90 Base) MCG/ACT inhaler 2 puffs, Every 4 hours PRN albuterol 2.5 mg, Nebulization, 2 times daily aspirin 81 mg buPROPion XL (WELLBUTRIN XL) 150 mg, Daily busPIRone (BUSPAR) 15 mg, Oral, 2 times daily calcium carbonate-cholecalciferol (Oyster Shell) 250-3.125 MG-MCG tablet 1 tablet Diclofenac Sodium (VOLTAREN) 4 g, Topical, 2 times daily fluticasone (Flonase) 50 MCG/ACT nasal spray 2 sprays, Daily Fluticasone Furoate-Vilanterol (Breo Ellipta) 200-25 MCG/ACT aerosol powder 1 puff, Daily Fluticasone-Salmeterol 250-50 MCG/ACT aerosol powder 250 mcg, Daily folic acid (FOLVITE) 1 mg, Oral, Daily guaiFENesin (MUCINEX) 1,200 mg, Oral, 2 times daily PRN, Do not crush, chew, or split. hydrOXYzine pamoate (VISTARIL) 25 mg magnesium oxide (MAG-OX) 400 mg, Daily melatonin 3 mg, Oral, Nightly mirtazapine (REMERON) 15 mg, Oral, Nightly montelukast (SINGULAIR) 10 mg, Nightly oxyCODONE (ROXICODONE) 15 mg, Every 6 hours PRN PARoxetine (PAXIL) 30 mg, Oral, Every morning QUEtiapine (SEROQUEL) 50 mg, Oral, Nightly PRN tiotropium (Spiriva Respimat) 2.5 MCG/ACT inhaler 2 puffs, Daily Zinc 50 mg Labs: CBC: Recent Labs 01/14/2565701/15/25532 WBC -- 6.6 HGB 10.8* 12.0 10.9* HCT -- 35.6 PLT -- 185 MCV -- 95.7 RDW -- 13.5 BMP: Recent Labs 01/14/2534301/15/2553201/16/25526 NA 144 141 142 K 4.0 4.3 3.7 CL 101 100 100 CO2 36* 35* 33* BUN 20 18 22 CREATININE 0.55* 0.52* 0.52* CALCIUM 8.7* 8.7* 8.4* MG -- 1.8 -- PHOS -- 2.1* -- Glucose: Recent Labs 01/14/2534301/15/2553201/16/25526 GLUCOSE 93 148* 90 ABGs: Recent Labs 01/14/2565701/15/25532 PHART 7.391 -- [id number] 61.8* -- PO2ART 73.2* -- [id number] 36.7* -- [id number] BiPAP Nasal Cannula (LPM) Microbiology: COVID/Flu/RSV: Negative Respiratory pathogens PCR: Negative Urine antigens: Negative Blood cultures: NGTD MRSA PCR: + Staph aureus, negative mecA gene Imaging/ Testing: CXR 01/13/25: FINDINGS: LUNGS AND PLEURAL SPACES: COPD, unchanged. Coarse bilateral interstitial lung markings. No consolidation. No pneumothorax. HEART: Unremarkable. No cardiomegaly. MEDIASTINUM: Unremarkable. Normal mediastinal contour. BONES/JOINTS: Thoracic degenerative spondylosis. No acute fracture. TUBES, LINES AND DEVICES: Left IJ MediPort catheter tip overlies mid SVC, unchanged. IMPRESSION: Emphysema, unchanged. Parenchymal fibrotic changes. Left subclavian MediPort, unchanged Assessment and Plan/Recommendations: Acute on chronic hypoxic & hypercarbic respiratory failure -Secondary to COPD AE and bronchiectasis exacerbation -Slowly improving. Required NIV while in ICU. States it helped her breathing. Given persistent hypercarbia while using BiPAP patient would likely qualify for NIV however she states she is not interested in using at home. Continue to monitor off. -Wean supplemental oxygen as patient tolerates. Baseline 4 liters at home. Currently requiring 6 liters NC with SpO2 in low 90's at rest. Goal SpO2 > 88% -Severe dyspnea and purse lip breathing with minimal movement. COPDAE/ Advanced emphysema -Continue Dulera and scheduled DuoNeb's. Resume Breo and Spiriva at discharge -Prednisone taper as ordered -PRN oxycodone for dyspnea per palliative care Bronchiectasis with concern for acute LRTI, Pseudomonas in the past -Prior CT chest in November with diffuse bronchiectasis, mucus plugging. Hx pseudomonas in the past. -Patient reports productive cough with yellow phlegm. Send sputum culture and pneumonia PCR -Continue Cefepime. Plan for 7-14 day antibiotic course depending on clinical response. 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 Counseled on smoking cessation and advised to quit smoking completely Advance Directive: DNR-CCA Discharge planning: TBD Case discussed with nurse and patient Questions and concerns addressed.. I have discussed the patient's case and plan of care with my collaborating physician Dr. Houston [1] Patient Active Problem List Diagnosis Poor venous access Other specified complication of vascular prosthetic devices, implants and grafts, initial encounter Chronic pain COPD (chronic obstructive pulmonary disease) ([facility]) DDD (degenerative disc disease), cervical Leukocytosis Malignant neoplasm of exocervix ([facility]) Moderate malnutrition (CMS/HCC) (HCC) Recurrent major depression Pulmonary nodule S/P hysterectomy Sciatica Shortness of breath Supplemental oxygen dependent PNA (pneumonia) H/O: CVA (cerebrovascular accident) Former smoker Nondisplaced fracture of neck of left femur ([facility]) Lumbar compression fracture, closed, initial encounter (HCC) Severe malnutrition (CMS/HCC) (HCC) Falls frequently Unintentional weight loss Debility PFO (patent foramen ovale) (HHS/HCC) Adult failure to thrive Anxiety and depression Cognitive deficits At risk for delirium COPD exacerbation (HCC) [2] Past Medical History: Diagnosis Date Abnormal stress test Acute exacerbation of chronic obstructive pulmonary disease (HCC) 04/12/2018 Allergic rhinitis 1955 Arthritis Asthma (HHS/HCC) Bronchitis Cancer (HCC) skin Cervical cancer (HCC) Chest pain COPD (chronic obstructive pulmonary disease) (HCC) USE OXYGEN 3 L AT NIGHT DDD (degenerative disc disease), cervical Defect, retina, with detachment right DJD (degenerative joint disease), lumbar Emphysema lung (HCC) Former smoker Hematuria SCHEDULED FOR THE PROCEDURE /SURGERY ON 02/11/2017 Hypokalemia Lung nodules Near syncope 09/19/2023 Osteoporosis Palpitations Pneumonia [id number] Recurrent major depression Sciatica Thoracic compression fracture (HCC) Vitamin D [...] fixation femoral fracture TUBAL LIGATION 1992 [4] Social History Tobacco Use Smoking Status Former Current packs/day: 0.00 Average packs/day: 1.8 packs/day for 49.0 years (90.5 ttl pk-yrs) Types: Cigarettes Start date: 1970 Quit date: 11/20/2019 Years since quittin.1 Passive exposure: Past Smokeless Tobacco Never Tobacco Comments Started at 15, 0.5 PPD, increased to 2.5 PPD at 31, quit smoking cigarettes in 2019 and started vaping, uses a rechargeable vape, the amount she vapes per day depends on whether she is a home or in rehab. 01/15/2025 [5] Family History Problem Relation Name Age of Onset Colon cancer Neg Hx Ovarian cancer Neg Hx Cancer Mother breast- to liver Cancer Sister breast Cancer Father lung to brain No Known Problems Brother Uterine cancer Neg Hx [6] Allergies Allergen Reactions Pollen Extract Unknown [7] Current Facility-Administered Medications: acetaminophen (Tylenol) tablet 650 mg, 650 mg, Oral, q6h PRN, Clemente Lynn MD, 650 mg at 01/14/25 1636 albuterol (2.5 MG/3ML) 0.083% nebulizer solution 2.5 mg, 2.5 mg, Nebulization, q2h PRN, Clemente Lynn MD aspirin EC tablet 81 mg, 81 mg, Oral, Daily, Clemente Lynn MD, 81 mg at 01/16/25 0956 buPROPion XL (Wellbutrin XL) 24 hr tablet 150 mg, 150 mg, Oral, Daily, Clemente Lynn MD, 150 mg at 01/16/25 0957 busPIRone (Buspar) tablet 15 mg, 15 mg, Oral, BID, Clemente Lynn MD, 15 mg at 01/16/25 0956 cefepime (Maxipime) 2,000 mg in sodium chloride 0.9 % 50 mL IVPB Mini-Bag Plus, 2,000 mg, IntraVENous, q8h, Clemente Lynn MD, Stopped at 01/16/25 0958 enoxaparin (Lovenox) syringe 40 mg, 40 mg, SubCUTAneous, Daily, Clemente Lynn MD, 40 mg at 01/16/25 0956 fluticasone (Flonase) nasal spray 2 spray, 2 spray, Each Nostril, Daily, Srini Pires MD, 2 spray at 01/16/25 0958 folic acid (Folvite) tablet 1 mg, 1 mg, Oral, Daily, Clemente Lynn MD, 1 mg at 01/15/25 0826 guaiFENesin (Mucinex) 12 hr tablet 600 mg, 600 mg, Oral, BID, Srini Pires MD, 600 mg at 01/16/25 0956 influenza vaccine A&B surf ant adjuvanted (Fluad) HIGH-DOSE injection 0.5 mL, 0.5 mL, IntraMUSCular, Prior to discharge, Clemente Lynn MD ipratropium-albuterol (Duo-Neb) 0.5-2.5 mg/3 mL nebulizer solution 3 mL, 3 mL, Nebulization, TID, Clemente Lynn MD, 3 mL at 01/16/25 0809 melatonin tablet 3 mg, 3 mg, Oral, Nightly, Clemnete Lynn MD, 3 mg at 01/15/25 2100 methocarbamol (Robaxin) tablet 500 mg, 500 mg, Oral, q8h PRN, Srini Pires MD, 500 mg at 01/14/25 1718 mirtazapine (Remeron) tablet 15 mg, 15 mg, Oral, Nightly, Clemente Lynn MD, 15 mg at 01/15/25 2100 mometasone-formoterol (Dulera 100) 100-5 MCG/ACT inhaler 2 puff, 2 puff, Inhalation, BID, Srini Pires MD, 2 puff at 01/15/25 103 montelukast (Singulair) tablet 10 mg, 10 mg, Oral, Nightly, Clemente Lynn MD, 10 mg at 01/15/252058 mupirocin (Bactroban) 2 % ointment 1 Application, 1 Application, Nasal, BID, Clemente Lynn MD, 1 Application at 01/15/25 08 naloxone (Narcan) injection 0.4 mg, 0.4 mg, IntraVENous, q5 min PRN, Clemente Lynn MD ondansetron ODT (Zofran-ODT) disintegrating tablet 4 mg, 4 mg, Oral, q8h PRN, 4 mg at 01/15/25 09 OR ondansetron (Zofran) injection 4 mg, 4 mg, IntraVENous, q6h PRN, Clemente Lynn MD, 4 mg at 01/12/252038 oxyCODONE (Roxicodone) immediate release tablet 15 mg, 15 mg, Oral, q6h PRN, Ruth العراقي MD, 15 mg at 01/16/25 1003 pantoprazole (ProtoNix) EC tablet 40 mg, 40 mg, Oral, q AM, Clemente Lynn MD, 40 mg at 01/16/25 0956 predniSONE (Deltasone) tablet 40 mg, 40 mg, Oral, Daily, 40 mg at 01/16/25 0956 FOLLOWED BY [START ON 01/18/2025] predniSONE (Deltasone) tablet 30 mg, 30 mg, Oral, Daily FOLLOWED BY [START ON 01/21/2025] predniSONE (Deltasone) tablet 20 mg, 20 mg, Oral, Daily FOLLOWED BY [START ON 01/24/2025] predniSONE (Deltasone) tablet 10 mg, 10 mg, Oral, Daily, Srini Pires MD QUEtiapine (SEROquel) tablet 50 mg, 50 mg, Oral, Nightly PRN, Clemente Lynn MD, 50 mg at 01/15/252058 senna-docusate sodium (Senokot-S) 8.6-50 MG tablet 1 tablet, 1 tablet, Oral, BID, Ruth العراقي MD sodium chloride 3 % hypertonic nebulizer solution 4 mL, 4 mL, Nebulization, BID, Srini Pires MD, 4 mL at 01/16/25 0809 [8] PRN medications: acetaminophen, albuterol, methocarbamol, naloxone, ondansetron ODT OR ondansetron, oxyCODONE, QUEtiapine Cosigned by Patricia Houston DO at 01/16/2025 2:27 PM EDT Associated Order(s): IP CONSULT TO GERIATRICS [facility] Geriatric Medicine Inpatient Consult Service Admission Date: 01/12/2025 Admission Status: INPATIENT Chief Complaint: Chief Complaint Patient presents with Shortness of Breath Pt reports severe SOB from SNF with need for more than baseline oxygen. Reason for Appointment Geriatrics consulted for "ECF patient, patient on multiple antianxiety/antidepressants" Assessment & Plan Principal Problem: COPD exacerbation (HCC) Active Problems: Moderate malnutrition (CMS/HCC) (HCC) Debility --contributing factors include medications, chronic respiratory failure, malnutrition, cognitive decline --using walker/wheelchair at baseline. Living at [facility] since July. Per daughter, she is not eligible for medicaid and may need alternative living arrangement. Social Work consulted. --PT and OT when able --check Vit D --chemical machine tender following Depression Anxiety --On Wellbutrin XL 150mg daily - consider weaning outpatient. May worsen anxiety and weight loss. --Continue Buspirone 15mg - takes TID at facility. On BID currently. Consider increasing to home (facility) dose. --Discontinue Paxil - has not taken since August. --Continue Mirtazapine 15mg at bedtime --Seroquel - she is not ordered Seroquel at the facility, however it is being filled at [facility] under prior PCP order for 200mg daily at bedtime as needed. Patient has been self-administering it at the facility. Reviewed with daughter that the facility should be aware of any medication the patient is taking so that they can assess for side effects, interactions. Will continue Seroquel 50mg nightly PRN here. --Taking Hydroxyzine at facility. Recommend avoiding. --Recommend outpatient Psychiatry to follow Cognitive deficits --+ history of cognitive decline at home. + history of decline in ADL's and IADL's --TSH 0.28 in July, B12 639 in July --Head imaging - Apr 2024 reviewed. September 2023 - Unchanged small area of encephalomalacia in the lateral aspect of the right occipital lobe. --History concerning for baseline cognitive deficits. Concern mood and medications also contributing. --Recommend outpatient [facility] for more in depth cognitive evaluation when in usual state of health if she returns home. Chronic pain --takes Oxycodone 15mg every 6 hours as needed for pain or shortness of breath --Palliative medicine following --On Methocarbamol - takes 1,000 mg every 8 hours as needed at facility. Agree with lower dose of 500mg. Consider changing to low dose Tizanidine prn. At risk for delirium --noted to have delirium initially that is documented to be improving. --Risk factors: pain, acute illness, high risk medications, history of delirium, and baseline cognitive deficits --Encourage PO intake, time up in chair, family visits, supervised ambulation, and sleep hygiene --If agitated, assess for and consider treating for pain --QTc= 439 ms --Continue Seroquel 50mg HS PRN --Continue scheduled melatonin at HS --Monitor for constipation/urinary retention - last BM 01/11/25 --Possible medication contributions: steroids I spent total time of 70 minutes [...] clinical information in the patients electronic record, -Coordination of care for the patient, and -Performing a medically appropriate exam and/or evaluation Subjective: HPI 69 y.o. year-old female with PMH of COPD, cervical cancer, DDD, DJD, osteoporosis, depression, compression fracture, vitain D deficiency, anxiety, malnutrition, pneumonia presented to the hospital from [facility] for shortness of breath and hypoxia. Admitted to the ICU for acute encephalopathy, acute on chronic hypoxic/hypercapnic respiratory failure. Required NIV. Treated for COPD exacerbation, Bronchiectasis exacerbation. Transitioning out of ICU 01/15. Off NIV. Palliative following. Conversation with patient: Reports she lives at [facility] since July 2024. She has chronic sleeping trouble and takes Melatonin and Mirtazapine. She has been talking Vistaril at night as well. She has not been on Seroquel since she moved there. Seroquel helps her sleep better. Uses wheelchair at facility - either propels self with feet or walks with wheelchair. She would like to return home but does not think it was be best for her. She agrees she needs more help. Appetite is not very good. Conversation with caregiver: Karihsma daughter Breathing declining. Poor activity tolerance. Medicaid denied in November. She has a large bill from facility. She has been working with a social work instructor in [facility]. May have to go home, but does not feel this is safest option. Some memory issues, but overall doing ok. May be a little more depressed at times. Nurse from [facility] verifies patient does not take Paxil or Seroquel there. They were told by the patient's roommate that the patient takes pills from her purse and the nurse found a bottle of alcohol in her closet. The patient frequently asks for pain medication. Based on [facility] report, she has regular fills for Seroquel 100mg at bedtime. Daughter reports she takes the Seroquel to the patient and patient administers them herself. She was not aware the facility did not know about the Seroquel. Contacted the facility and notified them of this. Advance Care Planning Healthcare Power of Fire Lieutenant Marine: Yes, Karishma Deluca Code Status: DNR-CCA Allergies[1] Current Medications[2] Medical History[3] Surgical History[4] Social History Tobacco Use Smoking status: Former Current packs/day: 0.00 Average packs/day: 1.8 packs/day for 49.0 years (90.5 ttl pk-yrs) Types: Cigarettes Start date: 1970 Quit date: 11/20/2019 Years since quittin.1 Passive exposure: Past Smokeless tobacco: Never Tobacco comments: Started at 15, 0.5 PPD, increased to 2.5 PPD at 31, quit smoking cigarettes in 2019 and started vaping, uses a rechargeable vape, the amount she vapes per day depends on whether she is a home or in rehab. 01/15/2025 Substance Use Topics Alcohol use: Not Currently Comment: Approx once a year Social History Social History Narrative Not on file Family History Family History[5] Family Status Relation Name Status Neg Hx (Not Specified) Mother Sister Alive Father Brother Alive No partnership data on file Review of Systems Constitutional: Positive for fatigue. HENT: Negative for congestion. Respiratory: Positive for cough and shortness of breath. Cardiovascular: Negative for chest pain and leg swelling. Gastrointestinal: Negative for abdominal pain, constipation, diarrhea and nausea. Genitourinary: Negative for difficulty urinating. Musculoskeletal: Positive for gait problem. Negative for arthralgias. Neurological: Positive for weakness. Negative for dizziness and tremors. Psychiatric/Behavioral: Positive for sleep disturbance. Negative for confusion and dysphoric mood. The patient is nervous/anxious (at times). Functional Status Prior to Admission: (I: Independent, A: Assisted, D: Dependent) ADLs I A D Notes Bathing [] [x] [] Dressing [] [x] [] Toileting [x] [] [] Transfers [x] [] [] Feeding [x] [] [] Ambulation [] [x] [] Assistive devices: wheelchair IADLs I A D Telephone [x] [] [] Transportation [] [] [x] Shopping [] [] [x] Meal prep [] [] [x] Housework [] [] [x] Medications [] [] [x] Finances [] [] [x] Objective: BP 135/85 Pulse 92 Temp 37.3 C (99.2 F) (Oral) Resp 23 Ht 5' 4" (1.626 m) Wt 106 lb (48.1 kg) SpO2 96% BMI 18.19 kg/m Intake/Output Summary (Last 24 hours) at 01/15/2025 1551 Last data filed at 01/15/2025 1500 Gross per 24 hour Intake 625 ml Output 500 ml Net 125 ml Wt Readings from Last 3 Encounters: 01/13/25 106 lb (48.1 kg) 08/20/24 93 lb 3.2 oz (42.3 kg) 08/03/24 89 lb 1.1 oz (40.4 kg) Physical Exam Vitals reviewed. Constitutional: General: She is not in acute distress. HENT: Head: Normocephalic and atraumatic. Cardiovascular: Rate and Rhythm: Normal rate and regular rhythm. Pulmonary: Effort: Pulmonary effort is normal. Comments: Wearing nasal cannula Abdominal: General: Bowel sounds are normal. There is no distension. Palpations: Abdomen is soft. Tenderness: There is no abdominal tenderness. Musculoskeletal: Right lower leg: No edema. Left lower leg: No edema. Neurological: Mental Status: She is alert and oriented to person, place, and time. Psychiatric: Attention and Perception: Attention normal. Mood and Affect: Affect normal. Behavior: Behavior is cooperative. Labs and Imaging: Recent Results (from the past 24 hours) Basic metabolic panel Collection Time: 01/15/25 5:33 AM Result Value Ref Range SODIUM 141 136 - 145 mmol/L POTASSIUM 4.3 3.5 - 5.1 mmol/L CHLORIDE 100 98 - 107 mmol/L CARBON DIOXIDE 35 (H) 23 - 31 mmol/L UREA NITROGEN 18 9 - 23 mg/dL CREATININE 0.52 (L) 0.58 - 1.12 mg/dL GLUCOSE 148 (H) 82 - 115 mg/dL CALCIUM 8.7 (L) 8.8 - 10.0 mg/dL ANION GAP 6 3 - 13 mmol/L eGFR >90.0 >60.0 mL/min/1.73m*2 Blood gas, venous Collection Time: 01/15/25 5:33 AM Result Value Ref Range pH, Venous 7.369 7.320 - 7.420 pCO2, Venous 65.6 (H) 35.0 - 53.0 mm Hg pO2, Venous 52.5 mm Hg HCO3, Venous 37.0 (H) 21.0 - 30.0 mmol/L O2 Sat, Venous 86.5 % Base Excess, Venous 9.5 (H) -3.0 - 3.0 mmol/L Hgb, blood gas 12.0 Screen only g/dl TCO2, Venous 39.0 (H) 23.0 - 30.0 mmol/L Source Of Oxygen Nasal Cannula (LPM) Amount Of Oxygen 6 Magnesium Collection Time: 01/15/25 5:33 AM Result Value Ref Range MAGNESIUM 1.8 1.6 - 2.6 mg/dL Phosphorus Collection Time: 01/15/25 5:33 AM Result Value Ref Range PHOSPHORUS 2.1 (L) 2.3 - 4.7 mg/dL CBC Collection Time: 01/15/25 5:33 AM Result Value Ref Range Auto WBC 6.6 3.6 - 10.7 10*3/uL RBC 3.72 (L) 3.80 - 5.20 10*6/uL Hemoglobin 10.9 (L) 11.7 - 16.0 g/dL Hematocrit 35.6 35.0 - 47.0 % MCV 95.7 77.0 - 99.0 fL MCH 29.3 26.0 - 34.0 pg MCHC 30.6 30.5 - 36.0 % RDW 13.5 11.5 - 15.0 % Platelets 185 140 - 440 10*3/uL MPV 9.6 9.0 - 12.7 fL Lab Results Component Value Date TSH 0.28 (L) 07/30/2024 No components found for: "B12" No results found for: "VITD25" Reviewed: active problem list, medication list, allergies, social history, notes from last encounter, notes from last several encounters, lab results, imaging Follow-up: will follow with you Saad Telles, 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 - MOTION PICTURE SET GRIP 01/15/25 3:51 PM [1] Allergies Allergen Reactions Pollen Extract Unknown [2] Current Facility-Administered Medications: acetaminophen (Tylenol) tablet 650 mg, 650 mg, Oral, q6h PRN, Clemente Lynn MD, 650 mg at 01/14/25 1636 albuterol (2.5 MG/3ML) 0.083% nebulizer solution 2.5 mg, 2.5 mg, Nebulization, q2h PRN, Clemente Lynn MD aspirin EC tablet 81 mg, 81 mg, Oral, Daily, Clemente Lynn MD, 81 mg at 01/15/25 0826 buPROPion XL (Wellbutrin XL) 24 hr tablet 150 mg, 150 mg, Oral, Daily, Clemente Lynn MD, 150 mg at 01/15/25 0825 busPIRone (Buspar) tablet 15 mg, 15 mg, Oral, BID, Clemente Lynn MD, 15 mg at 01/15/25 0825 cefepime (Maxipime) 2,000 mg in sodium chloride 0.9 % 50 mL IVPB Mini-Bag Plus, 2,000 mg, IntraVENous, q8h, Clemente Lynn MD, Last Rate: 12.5 mL/hr at 01/15/25 1302, 2,000 mg at 01/15/25 1302 enoxaparin (Lovenox) syringe 40 mg, 40 mg, SubCUTAneous, Daily, Clemente Lynn MD, 40 mg at 01/15/25 0826 fluticasone (Flonase) nasal spray 2 spray, 2 spray, Each Nostril, Daily, Srini Pires MD, 2 spray at 01/15/25 1301 folic acid (Folvite) tablet 1 mg, 1 mg, Oral, Daily, Clemente Lynn MD, 1 mg at 01/15/25 0826 guaiFENesin (Mucinex) 12 hr tablet 600 mg, 600 mg, Oral, BID, Srini Pires MD, 600 mg at 01/15/25 0826 influenza vaccine A&B surf ant adjuvanted (Fluad) HIGH-DOSE injection 0.5 mL, 0.5 mL, IntraMUSCular, Prior to discharge, Clemente Lynn MD ipratropium-albuterol (Duo-Neb) 0.5-2.5 mg/3 mL nebulizer solution 3 mL, 3 mL, Nebulization, TID, Clemente Lynn MD melatonin tablet 3 mg, 3 mg, Oral, Nightly, Clemente Lynn MD, 3 mg at 01/14/252050 methocarbamol (Robaxin) tablet 500 mg, 500 mg, Oral, q8h PRN, Srini Pires MD, 500 mg at 01/14/251717 mirtazapine (Remeron) tablet 15 mg, 15 mg, Oral, Nightly, Clemente Lynn MD, 15 mg at 01/14/252050 mometasone-formoterol (Dulera 100) 100-5 MCG/ACT inhaler 2 puff, 2 puff, Inhalation, BID, Srini Pires MD, 2 puff at 01/15/25 103 montelukast (Singulair) tablet 10 mg, 10 mg, Oral, Nightly, Clemente Lynn MD, 10 mg at 01/14/252050 mupirocin (Bactroban) 2 % ointment 1 Application, 1 Application, Nasal, BID, Clemente Lynn MD, 1 Application at 01/15/25825 naloxone (Narcan) injection 0.4 mg, 0.4 mg, IntraVENous, q5 min PRN, Clemente Lynn MD ondansetron ODT (Zofran-ODT) disintegrating tablet 4 mg, 4 mg, Oral, q8h PRN, 4 mg at 01/15/25 0909 OR ondansetron (Zofran) injection 4 mg, 4 mg, IntraVENous, q6h PRN, Clemente Lynn MD, 4 mg at 01/12/252038 oxyCODONE (Roxicodone) immediate release tablet 15 mg, 15 mg, Oral, q6h PRN, Ruth العراقي MD, 15 mg at 01/15/25 143 pantoprazole (ProtoNix) EC tablet 40 mg, 40 mg, Oral, q AM, Clemente Lynn MD, 40 mg at 01/15/25 0825 PARoxetine (Paxil) tablet 30 mg, 30 mg, Oral, q AM, Clemente Lynn MD, 30 mg at 01/15/25 0825 predniSONE (Deltasone) tablet 40 mg, 40 mg, Oral, Daily, 40 mg at 01/15/25 1035 FOLLOWED BY [START ON 01/18/2025] predniSONE (Deltasone) tablet 30 mg, 30 mg, Oral, Daily FOLLOWED BY [START ON 01/21/2025] predniSONE (Deltasone) tablet 20 mg, 20 mg, Oral, Daily FOLLOWED BY [START ON 01/24/2025] predniSONE (Deltasone) tablet 10 mg, 10 mg, Oral, Daily, Srini Pires MD QUEtiapine (SEROquel) tablet 50 mg, 50 mg, Oral, Nightly PRN, Clemente Lynn MD, 50 mg at 01/14/252222 senna-docusate sodium (Senokot-S) 8.6-50 MG tablet 1 tablet, 1 tablet, Oral, BID, Ruth العراقي MD sodium chloride 3 % hypertonic nebulizer solution 4 mL, 4 mL, Nebulization, BID, Srini Pires MD, 4 mL at 01/14/252015 [3] Past Medical History: Diagnosis Date Abnormal stress test Acute exacerbation of chronic obstructive pulmonary disease (HCC) 04/12/2018 Allergic rhinitis 1955 Arthritis Asthma ([facility]/HCC) Bronchitis Cancer (HCC) skin Cervical cancer (HCC) Chest pain COPD (chronic obstructive pulmonary disease) ([facility]) USE OXYGEN 3 L AT NIGHT DDD (degenerative disc disease), cervical Defect, retina, with detachment right DJD (degenerative joint disease), lumbar Emphysema lung (HCC) Former smoker Hematuria SCHEDULED FOR THE PROCEDURE /SURGERY ON 02/11/2017 Hypokalemia Lung nodules Near syncope 09/19/2023 Osteoporosis Palpitations Pneumonia [id number] Recurrent major depression Sciatica Thoracic compression fracture ([facility]) Vitamin D deficiency [4] Past Surgical History: Procedure Laterality Date CYSTOSCOPY 01/12/2017 OFFICE PROCEDURE CYSTOSCOPY 02/11/2017 C&P bladder biopsy EYE SURGERY detached retina 1994 HYSTERECTOMY 11/06/2019 ABDOMINAL RADICAL HYSTERECTOMY WITH BSO AND PELVIC LYMPH; DR[facility] ZIYAD [facility]ENENDE[facility] OTHER SURGICAL HISTORY Left 12/19/2019 [...] Brother Uterine cancer Neg Hx Associated Order(s): IP CONSULT TO PALLIATIVE CARE Images from the original note were not included. Palliative Care Initial Consult Chief Complaint: Gonzalo Deluca is a 69 y.o. female with chief complaint of shortness of breath. Palliative Care is actively following. Assessment/Plan Goals of Care -DNR-CCA/DNI, OK ICU transfer -Gonzalo Deluca retains capacity for medical decision-making -HCPOA: daughter Karishma [phone] - Another emergency contact listed is son Jace [phone] -goals of care: To continue current medical management, to get better; pt working towards returning home but states she knows facility/ 11/10 care may be better moving forward -STAMP PAD FINISHER: pt admitted from [facility] -see subjective for details of conversation -has been seen by palliative team during past admission Acute on Chronic Respiratory Failure COPD Severe Emphysema -pt currently on 6L NC; required NIV yesterday- now off -wears 3L NC at baseline -nebulizers -ABGs reviewed -CXR--> COPD, unchanged. Coarse bilateral interstitial lung markings. No consolidation. No pneumothorax. 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 -albumin 2.9 -BMI 18.19 -poor PO intake Dyspnea -has oxycodone 10mg q6h PRN ordered--> will change to 15mg q6h PRN, as this is what pt was taking at home Pain -has oxycodone 10mg q6h PRN ordered--> will change to 15mg q6h PRN, as this is what pt was taking at home -PRN Tylenol Debility -increased weakness -admitted from [facility] -PT/OT as able -2nd admission since July 2024 Palliative Care Encounter -Code Status: DNR-CCA - will continue to follow for ongoing monitoring of progression of Dyspnea, Pain, Anxiety, and Fatigue as well as for appropriateness for hospice care due to COPD, Respiratory Failure, and Protein Calorie Malnutrition Total of 75 minutes spent on this encounter including Chart review, Patient visit and exam, Documentation in EHR, Care coordination, Communicating with primary attending or other consultants, Electronic order manager of medications, tests or procedures, Counseling and educating patient/family/caregiver, and Independently interpreting results and communicating results to patient/family/caregiver. Discharge planning: Not ready for discharge due to ongoing medical work-up/critical illness Patient meets criteria for general inpatient hospice care: No Palliative Care IDT members involved: None Discussed the plan of care with the other interdisciplinary team (IDT) members of the Palliative Care and Hospice teams and Patient, Family, Primary Attending, and Floor Nurse. Subjective: Subjective/Events Gonzalo Deluca is a 69 y.o. female with PMH COPD/, arthritis, asthma, DDD, depression, anxiety, osteoporosis. She presented to ED from nursing facility with increased shortness of breath & cough. Patient's SpO2 was found to be at 85%. Patient was admitted to ICU for NIV. Palliative care was consulted for goals of care. Upon assessment today, patient is lying in bed awake. She is A&Ox3 on 6L NC.. Has some shortness of breath with conversation, states this is baseline for her. Has a headache during encounter, 05/28. No nausea or vomiting. Has had poor p.o. intake. Had a BM yesterday. GOC discussions: met with pt, son, daughter in law at bedside. Introduced self and role and provided medical updates. Pt goals to continue current medical management & get well enough to return home in the future. She also recognizes that home going may not be the best option for her, and that she may require 24/7 care at a nursing facility moving forward. Pt states she filled out HCPOA and designated her daughter. Confirms DNR-CCA/DNI. We discussed symptom management medications. Pt shares she was taking 15mg oxycodone prior to admission. Will reorder. We discuss the possibility of her requiring low dose PRN anxiety meds in the future, such as PRN ativan if starts to have worsening symptoms. Pt states that she does not have a palliative team follow her at [facility]. Discuss that [facility] does not follow there but can see about sending external referral. She agrees with plan. All questions answered. Pain Assessment No pain; has headache Palliative Care Assessments: Goals of care: Continue Current Management and Improve or Maintain Function/Quality of Life Advanced Directives: DNR Functional Assessment: PPS 60% amb reduced; can't do normal housework/sig disease; occ assistance; normal or reduced intake; full LOC or confusion Prognosis: depends upon goals of care and uncertain at this time Spiritual Assessment: No spiritual distress identified Bereavement and Grief: Grief Issues Not Identified PDMP/OARRS Reviewed: Yes-reviewed. Oxycodone, morphine sulfate, oxycodone-acetaminophen reported Social history: Marital status: single Children: 2 adult child(kyler) Living status: skilled nursing Work history: Retired due to disability status: No Mormonism: None ROS: See palliative care ROS/ESAS below; All other systems were reviewed and are negative. [place] Symptom Assessment Score [place] Score Pain Score (if non-verbal, add .FLACC below) 3 Tiredness Score 2 Nausea Score 0 Depression Score 2 Anxiety Score 3 Drowsiness Score 0 Anorexia Score (0= eating well, 10= not eating) 5 Wellbeing Score (10= worst sense of well-being) 5 Constipation 0 Dyspnea Score (0= no shortness of breath) 3 Family Meeting: Participants: none held Family meeting was held to discuss:N/A Medical History[1] Surgical History[2] Family History[3] Unable to obtain family history due to N/A- family history available Allergies[4] Objective: BP 113/64 Pulse 100 Temp 36.1 C (97 F) (Oral) Resp 20 Wt 106 lb (48.1 kg) SpO2 93% BMI 18.19 kg/m Physical Exam Vitals reviewed. Constitutional: Appearance: She is cachectic. She is ill-appearing. HENT: Head: Normocephalic. Nose: Nose normal. Eyes: General: Right eye: No discharge. Left eye: No discharge. Extraocular Movements: Extraocular movements intact. Pupils: Pupils are equal, round, and reactive to light. Cardiovascular: Rate and Rhythm: Normal rate and regular rhythm. Pulses: Normal pulses. Pulmonary: Comments: Diminished breath sounds bilaterally Some shortness of breath with conversation Abdominal: General: Bowel sounds are normal. There is no distension. Palpations: Abdomen is soft. Tenderness: There is no abdominal tenderness. There is no guarding. Skin: General: Skin is warm and dry. Neurological: Mental Status: She is alert and oriented to person, place, and time. Psychiatric: Mood and Affect: Mood normal. Behavior: Behavior normal. Medication information: 24-hour PRN meds received: Zofran x1, oxycodone x2, Seroquel x1 Results/Verification of Data Review Objective data reviewed (must include dates reviewed for labs, imaging reports and other specialty notes): Labs 01/13/25, CXR 01/13, records, medication use, and chart reviewed on 01/13/25 Data in Support of Terminal Illness: Is patient hospice appropriate? Eligible, but not consistent with [facility] at this time Transition Note Initiated: yes Nilesh Frey, 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 - MOTION PICTURE SET GRIP [1] Past Medical History: Diagnosis Date Abnormal stress test Acute exacerbation of chronic obstructive pulmonary disease (HCC) 04/12/2018 Allergic rhinitis 1955 Arthritis Asthma ([facility]/HCC) Bronchitis Cancer (HCC) skin Cervical cancer (HCC) Chest pain COPD (chronic obstructive pulmonary disease) (HCC) USE OXYGEN 3 L AT NIGHT DDD (degenerative disc disease), cervical Defect, retina, with detachment right DJD (degenerative joint disease), lumbar Emphysema lung (HCC) Former smoker Hematuria SCHEDULED FOR THE PROCEDURE /SURGERY ON 02/11/2017 Hypokalemia Lung nodules Near syncope 09/19/2023 Osteoporosis Palpitations Pneumonia [id number] Recurrent major depression Sciatica Thoracic compression fracture (HCC) Vitamin D [...] Allergen Reactions Pollen Extract Unknown Cosigned by Imtiaz Fontenot MD at 01/13/2025 2:44 PM EDT documented in this encounter [facility] 01-16-2025 Nurse Note Wound Care consulted for Pressure Injury Prevention. Pt's Jeri score= 18 on 01/15 Pt's pressure points assessed. Pt turned independently in the bed for posterior assessment. Pt's Heels, Buttocks/coccyx, Back, Elbows, Occiput and ears all intact. Brent and blanchable tissues noted to sacrum. Pt moved lower extremities well in the bed throughout assessment. Instructed pt on pressure injury prevention and importance of turning/postioning every 2hrs while in bed and every 15 min while sitting in chair. Verbalized understanding. Prevention Measures in place, including: Pillows/wedges, Heels elevated off bed on pillows, Sacral foam (obtained and applied), Zinc/Moisture Barrier ointment (obtained), Waffle chair cushion (obtain if out of bed to chair). Skin Care precaution order set in place. Dietitian consult in place. PT consult N/A, activity/mobility subscores of 3. D/W nursing staff. Will continue to follow pt. Please secure chat for any questions or concerns. Rosalina Cross RN [facility] 01-15-2025 Consult note Associated Order (s): IP CONSULT TO GERIATRICS [facility] Geriatric Medicine Inpatient Consult Service Admission Date: 01/12/2025 Admission Status: INPATIENT Chief Complaint: Chief Complaint Patient presents with Shortness of Breath Pt reports severe SOB from SNF with need for more than baseline oxygen. Reason for Appointment Geriatrics consulted for "ECF patient, patient on multiple antianxiety/antidepressants" Assessment & Plan Principal Problem: COPD exacerbation (HCC) Active Problems: Moderate malnutrition (CMS/HCC) (HCC) Debility --contributing factors include medications, chronic respiratory failure, malnutrition, cognitive decline --using walker/wheelchair at baseline. Living at [facility] since July. Per daughter, she is not eligible for medicaid and may need alternative living arrangement. Social Work consulted. --PT and OT when able --check Vit D --chemical machine tender following Depression Anxiety --On Wellbutrin XL 150mg daily - consider weaning outpatient. May worsen anxiety and weight loss. --Continue Buspirone 15mg - takes TID at facility. On BID currently. Consider increasing to home (facility) dose. --Discontinue Paxil - has not taken since August. --Continue Mirtazapine 15mg at bedtime --Seroquel - she is not ordered Seroquel at the facility, however it is being filled at [facility] under prior PCP order for 200mg daily at bedtime as needed. Patient has been self-administering it at the facility. Reviewed with daughter that the facility should be aware of any medication the patient is taking so that they can assess for side effects, interactions. Will continue Seroquel 50mg nightly PRN here. --Taking Hydroxyzine at facility. Recommend avoiding. --Recommend outpatient Psychiatry to follow Cognitive deficits --+ history of cognitive decline at home. + history of decline in ADL's and IADL's --TSH 0.28 in July, B12 639 in July --Head imaging - Apr 2024 reviewed. September 2023 - Unchanged small area of encephalomalacia in the lateral aspect of the right occipital lobe. --History concerning for baseline cognitive deficits. Concern mood and medications also contributing. --Recommend outpatient follow up at [facility] for more in depth cognitive evaluation when in usual state of health if she returns home. Chronic pain --takes Oxycodone 15mg every 6 hours as needed for pain or shortness of breath --Palliative medicine following --On Methocarbamol - takes 1,000 mg every 8 hours as needed at facility. Agree with lower dose of 500mg. Consider changing to low dose Tizanidine prn. At risk for delirium --noted to have delirium initially that is documented to be improving. --Risk factors: pain, acute illness, high risk medications, history of delirium, and baseline cognitive deficits --Encourage PO intake, time up in chair, family visits, supervised ambulation, and sleep hygiene --If agitated, assess for and consider treating for pain --QTc= 439 ms --Continue Seroquel 50mg HS PRN --Continue scheduled melatonin at HS --Monitor for constipation/urinary retention - last BM 01/11/25 --Possible medication contributions: steroids I spent total time of 70 minutes [...] clinical information in the patients electronic record, -Coordination of care for the patient, and -Performing a medically appropriate exam and/or evaluation Subjective: HPI 69 y.o. year-old female with PMH of COPD, cervical cancer, DDD, DJD, osteoporosis, depression, compression fracture, vitain D deficiency, anxiety, malnutrition, pneumonia presented to the hospital from [facility] for shortness of breath and hypoxia. Admitted to the ICU for acute encephalopathy, acute on chronic hypoxic/hypercapnic respiratory failure. Required NIV. Treated for COPD exacerbation, Bronchiectasis exacerbation. Transitioning out of ICU 01/15. Off NIV. Palliative following. Conversation with patient: Reports she lives at [facility] since July 2024. She has chronic sleeping trouble and takes Melatonin and Mirtazapine. She has been talking Vistaril at night as well. She has not been on Seroquel since she moved there. Seroquel helps her sleep better. Uses wheelchair at facility - either propels self with feet or walks with wheelchair. She would like to return home but does not think it was be best for her. She agrees she needs more help. Appetite is not very good. Conversation with caregiver: Karishma daughter Breathing declining. Poor activity tolerance. Medicaid denied in November. She has a large bill from facility. She has been working with a social work instructor in [facility]. May have to go home, but does not feel this is safest option. Some memory issues, but overall doing ok. May be a little more depressed at times. Nurse from [facility] verifies patient does not take Paxil or Seroquel there. They were told by the patient's roommate that the patient takes pills from her purse and the nurse found a bottle of alcohol in her closet. The patient frequently asks for pain medication. Based on [facility] report, she has regular fills for Seroquel 100mg at bedtime. Daughter reports she takes the Seroquel to the patient and patient administers them herself. She was not aware the facility did not know about the Seroquel. Contacted the facility and notified them of this. Advance Care Planning Healthcare Power of Fire Lieutenant Marine: Yes, Karishma Deluca Code Status: DNR-CCA Allergies[1] Current Medications[2] Medical History[3] Surgical History[4] Social History Tobacco Use Smoking status: Former Current packs/day: 0.00 Average packs/day: 1.8 packs/day for 49.0 years (90.5 ttl pk-yrs) Types: Cigarettes Start date: 1970 Quit date: 11/20/2019 Years since quittin.1 Passive exposure: Past Smokeless tobacco: Never Tobacco comments: Started at 15, 0.5 PPD, increased to 2.5 PPD at 31, quit smoking cigarettes in 2019 and started vaping, uses a rechargeable vape, the amount she vapes per day depends on whether she is a home or in rehab. 01/15/2025 Substance Use Topics Alcohol use: Not Currently Comment: Approx once a year Social History Social History Narrative Not on file Family History Family History[5] Family Status Relation Name Status Neg Hx (Not Specified) Mother Sister Alive Father Brother Alive No partnership data on file Review of Systems Constitutional: Positive for fatigue. HENT: Negative for congestion. Respiratory: Positive for cough and shortness of breath. Cardiovascular: Negative for chest pain and leg swelling. Gastrointestinal: Negative for abdominal pain, constipation, diarrhea and nausea. Genitourinary: Negative for difficulty urinating. Musculoskeletal: Positive for gait problem. Negative for arthralgias. Neurological: Positive for weakness. Negative for dizziness and tremors. Psychiatric/Behavioral: Positive for sleep disturbance. Negative for confusion and dysphoric mood. The patient is nervous/anxious (at times). Functional Status Prior to Admission: (I: Independent, A: Assisted, D: Dependent) ADLs I A D Notes Bathing [] [x] [] Dressing [] [x] [] Toileting [x] [] [] Transfers [x] [] [] Feeding [x] [] [] Ambulation [] [x] [] Assistive devices: wheelchair IADLs I A D Telephone [x] [] [] Transportation [] [] [x] Shopping [] [] [x] Meal prep [] [] [x] Housework [] [] [x] Medications [] [] [x] Finances [] [] [x] Objective: BP 135/85 Pulse 92 Temp 37.3 C (99.2 F) (Oral) Resp 23 Ht 5' 4" (1.626 m) Wt 106 lb (48.1 kg) SpO2 96% BMI 18.19 kg/m Intake/Output Summary (Last 24 hours) at 01/15/2025 1551 Last data filed at 01/15/2025 1500 Gross per 24 hour Intake 625 ml Output 500 ml Net 125 ml Wt Readings from Last 3 Encounters: 01/13/25 106 lb (48.1 kg) 08/20/24 93 lb 3.2 oz (42.3 kg) 08/03/24 89 lb 1.1 oz (40.4 kg) Physical Exam Vitals reviewed. Constitutional: General: She is not in acute distress. HENT: Head: Normocephalic and atraumatic. Cardiovascular: Rate and Rhythm: Normal rate and regular rhythm. Pulmonary: Effort: Pulmonary effort is normal. Comments: Wearing nasal cannula Abdominal: General: Bowel sounds are normal. There is no distension. Palpations: Abdomen is soft. Tenderness: There is no abdominal tenderness. Musculoskeletal: Right lower leg: No edema. Left lower leg: No edema. Neurological: Mental Status: She is alert and oriented to person, place, and time. Psychiatric: Attention and Perception: Attention normal. Mood and Affect: Affect normal. Behavior: Behavior is cooperative. Labs and Imaging: Recent Results (from the past 24 hours) Basic metabolic panel Collection Time: 01/15/25 5:33 AM Result Value Ref Range SODIUM 141 136 - 145 mmol/L POTASSIUM 4.3 3.5 - 5.1 mmol/L CHLORIDE 100 98 - 107 mmol/L CARBON DIOXIDE 35 (H) 23 - 31 mmol/L UREA NITROGEN 18 9 - 23 mg/dL CREATININE 0.52 (L) 0.58 - 1.12 mg/dL GLUCOSE 148 (H) 82 - 115 mg/dL CALCIUM 8.7 (L) 8.8 - 10.0 mg/dL ANION GAP 6 3 - 13 mmol/L eGFR >90.0 >60.0 mL/min/1.73m*2 Blood gas, venous Collection Time: 01/15/25 5:33 AM Result Value Ref Range pH, Venous 7.369 7.320 - 7.420 pCO2, Venous 65.6 (H) 35.0 - 53.0 mm Hg pO2, Venous 52.5 mm Hg HCO3, Venous 37.0 (H) 21.0 - 30.0 mmol/L O2 Sat, Venous 86.5 % Base Excess, Venous 9.5 (H) -3.0 - 3.0 mmol/L Hgb, blood gas 12.0 Screen only g/dl TCO2, Venous 39.0 (H) 23.0 - 30.0 mmol/L Source Of Oxygen Nasal Cannula (LPM) Amount Of Oxygen 6 Magnesium Collection Time: 01/15/25 5:33 AM Result Value Ref Range MAGNESIUM 1.8 1.6 - 2.6 mg/dL Phosphorus Collection Time: 01/15/25 5:33 AM Result Value Ref Range PHOSPHORUS 2.1 (L) 2.3 - 4.7 mg/dL CBC Collection Time: 01/15/25 5:33 AM Result Value Ref Range Auto WBC 6.6 3.6 - 10.7 10*3/uL RBC 3.72 (L) 3.80 - 5.20 10*6/uL Hemoglobin 10.9 (L) 11.7 - 16.0 g/dL Hematocrit 35.6 35.0 - 47.0 % MCV 95.7 77.0 - 99.0 fL MCH 29.3 26.0 - 34.0 pg MCHC 30.6 30.5 - 36.0 % RDW 13.5 11.5 - 15.0 % Platelets 185 140 - 440 10*3/uL MPV 9.6 9.0 - 12.7 fL Lab Results Component Value Date TSH 0.28 (L) 07/30/2024 No components found for: "B12" No results found for: "VITD25" Reviewed: active problem list, medication list, allergies, social history, notes from last encounter, notes from last several encounters, lab results, imaging Follow-up: will follow with you 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, 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 - [employer] 01/15/25 3:51 PM [1] Allergies Allergen Reactions Pollen Extract Unknown [2] Current Facility-Administered Medications: acetaminophen (Tylenol) tablet 650 mg, 650 mg, Oral, q6h PRN, Clemente Lynn MD, 650 mg at 01/14/25 1636 albuterol (2.5 MG/3ML) 0.083% nebulizer solution 2.5 mg, 2.5 mg, Nebulization, q2h PRN, Clemente Lynn MD aspirin EC tablet 81 mg, 81 mg, Oral, Daily, Clemente Lynn MD, 81 mg at 01/15/25 0826 buPROPion XL (Wellbutrin XL) 24 hr tablet 150 mg, 150 mg, Oral, Daily, Clemente Lynn MD, 150 mg at 01/15/25 0825 busPIRone (Buspar) tablet 15 mg, 15 mg, Oral, BID, Clemente Lynn MD, 15 mg at 01/15/25 0825 cefepime (Maxipime) 2,000 mg in sodium chloride 0.9 % 50 mL IVPB Mini-Bag Plus, 2,000 mg, IntraVENous, q8h, Clemente Lynn MD, Last Rate: 12.5 mL/hr at 01/15/25 1302, 2,000 mg at 01/15/25 1302 enoxaparin (Lovenox) syringe 40 mg, 40 mg, SubCUTAneous, Daily, Clemente Lynn MD, 40 mg at 01/15/25 0826 fluticasone (Flonase) nasal spray 2 spray, 2 spray, Each Nostril, Daily, Srini Pires MD, 2 spray at 01/15/25 1301 folic acid (Folvite) tablet 1 mg, 1 mg, Oral, Daily, Clemente Lynn MD, 1 mg at 01/15/25 0826 guaiFENesin (Mucinex) 12 hr tablet 600 mg, 600 mg, Oral, BID, Srini Pires MD, 600 mg at 01/15/25 08 influenza vaccine A&B surf ant adjuvanted (Fluad) HIGH-DOSE injection 0.5 mL, 0.5 mL, IntraMUSCular, Prior to discharge, Clemente Lynn MD ipratropium-albuterol (Duo-Neb) 0.5-2.5 mg/3 mL nebulizer solution 3 mL, 3 mL, Nebulization, TID, Clemente Lynn MD melatonin tablet 3 mg, 3 mg, Oral, Nightly, Clemente Lynn MD, 3 mg at 01/14/252050 methocarbamol (Robaxin) tablet 500 mg, 500 mg, Oral, q8h PRN, Srini Pires MD, 500 mg at 01/14/251717 mirtazapine (Remeron) tablet 15 mg, 15 mg, Oral, Nightly, Clemente Lynn MD, 15 mg at 01/14/252050 mometasone-formoterol (Dulera 100) 100-5 MCG/ACT inhaler 2 puff, 2 puff, Inhalation, BID, Srini Pires MD, 2 puff at 01/15/25 103 montelukast (Singulair) tablet 10 mg, 10 mg, Oral, Nightly, Clemente Lynn MD, 10 mg at 01/14/252050 mupirocin (Bactroban) 2 % ointment 1 Application, 1 Application, Nasal, BID, Clemente Lynn MD, 1 Application at 01/15/25825 naloxone (Narcan) injection 0.4 mg, 0.4 mg, IntraVENous, q5 min PRN, Clemente Lynn MD ondansetron ODT (Zofran-ODT) disintegrating tablet 4 mg, 4 mg, Oral, q8h PRN, 4 mg at 01/15/25 09 OR ondansetron (Zofran) injection 4 mg, 4 mg, IntraVENous, q6h PRN, Clemente Lynn MD, 4 mg at 01/12/252038 oxyCODONE (Roxicodone) immediate release tablet 15 mg, 15 mg, Oral, q6h PRN, Ruth العراقي MD, 15 mg at 01/15/25 1438 pantoprazole (ProtoNix) EC tablet 40 mg, 40 mg, Oral, q AM, Clemente Lynn MD, 40 mg at 01/15/25 0825 PARoxetine (Paxil) tablet 30 mg, 30 mg, Oral, q AM, Clemente Lynn MD, 30 mg at 01/15/25 0825 predniSONE (Deltasone) tablet 40 mg, 40 mg, Oral, Daily, 40 mg at 01/15/25 1035 FOLLOWED BY [START ON 01/18/2025] predniSONE (Deltasone) tablet 30 mg, 30 mg, Oral, Daily FOLLOWED BY [START ON 01/21/2025] predniSONE (Deltasone) tablet 20 mg, 20 mg, Oral, Daily FOLLOWED BY [START ON 01/24/2025] predniSONE (Deltasone) tablet 10 mg, 10 mg, Oral, Daily, Srini Pires MD QUEtiapine (SEROquel) tablet 50 mg, 50 mg, Oral, Nightly PRN, Clemente Lynn MD, 50 mg at 01/14/25 2223 senna-docusate sodium (Senokot-S) 8.6-50 MG tablet 1 tablet, 1 tablet, Oral, BID, Ruth العرقاي MD sodium chloride 3 % hypertonic nebulizer solution 4 mL, 4 mL, Nebulization, BID, Srini Pires MD, 4 mL at 01/14/252015 [3] Past Medical History: Diagnosis Date Abnormal stress test Acute exacerbation of chronic obstructive pulmonary disease (HCC) 04/12/2018 Allergic rhinitis 195 Arthritis Asthma ([facility]/HCC) Bronchitis Cancer (HCC) skin Cervical cancer ([facility]) Chest pain COPD (chronic obstructive pulmonary disease) ([facility]) USE OXYGEN 3 L AT NIGHT DDD (degenerative disc disease), cervical Defect, retina, with detachment right DJD (degenerative joint disease), lumbar Emphysema lung (HCC) Former smoker Hematuria SCHEDULED FOR THE PROCEDURE /SURGERY ON 02/11/2017 Hypokalemia Lung nodules Near syncope 09/19/2023 Osteoporosis Palpitations Pneumonia [id number] Recurrent major depression Sciatica Thoracic compression fracture ([facility]) Vitamin D deficiency [4] Past Surgical History: Procedure Laterality Date CYSTOSCOPY 01/12/2017 OFFICE PROCEDURE CYSTOSCOPY 02/11/2017 C&P bladder biopsy EYE SURGERY detached retina 1994 HYSTERECTOMY 11/06/2019 ABDOMINAL RADICAL HYSTERECTOMY WITH BSO AND PELVIC LYMPH; DR[facility] 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 Pires [facility] 01-14-2025 Note Referral placed to r eturn back to [facility] via [facility] per TCC request. Await review and response regarding ability to accept. TCC notified. [facility] 01-14-2025 Progress note Formatting of t his note might be different from the original. Referral placed to return back to [facility] via [facility] per TCC request. Await review and response regarding ability to accept. TCC notified. [facility] 01-14-2025 Note Request for SAW GRINDER to p lace referral to [facility]. CM will follow for updates and discharge planning. [facility] 01-14-2025 Progress note Formatting of t his note might be different from the original. Request for SAW GRINDER to place referral to [facility]. CM will follow for updates and discharge planning. [facility] [employer] 01-13-2025 Consult note Associated Order (s): IP CONSULT TO PALLIATIVE CARE Images from the original note were not included. Palliative Care Initial Consult Chief Complaint: Gonzalo Deluca is a 69 y.o. female with chief complaint of shortness of breath. Palliative Care is actively following. 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 Coarse bilateral interstitial lung markings. No consolidation. No pneumothorax. 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 -albumin 2.9 -BMI 18.19 -poor PO intake Dyspnea -has oxycodone 10mg q6h PRN ordered--> will change to 15mg q6h PRN, as this is what pt was taking at home Pain -has oxycodone 10mg q6h PRN ordered--> will change to 15mg q6h PRN, as this is what pt was taking at home -PRN Tylenol Debility -increased weakness -admitted from [facility] -PT/OT as able -2nd admission since July 2024 Palliative Care Encounter -Code Status: DNR-CCA - will continue to follow for ongoing monitoring of progression of Dyspnea, Pain, Anxiety, and Fatigue as well as for appropriateness for hospice care due to COPD, Respiratory Failure, and Protein Calorie Malnutrition Total of 75 minutes spent on this encounter including Chart review, Patient visit and exam, Documentation in EHR, Care coordination, Communicating with primary attending or other consultants, Electronic order manager of medications, tests or procedures, Counseling and educating patient/family/caregiver, and Independently interpreting results and communicating results to patient/family/caregiver. Discharge planning: Not ready for discharge due to ongoing medical work-up/critical illness Patient meets criteria for general inpatient hospice care: No Palliative Care IDT members involved: None Discussed the plan of care with the other interdisciplinary team (IDT) members of the Palliative Care and Hospice teams and Patient, Family, Primary Attending, and Floor Nurse. Subjective: Subjective/Events Gonzalo Deluca is a 69 y.o. female with PMH COPD/, arthritis, asthma, DDD, depression, anxiety, osteoporosis. She presented to ED from nursing facility with increased shortness of breath & cough. Patient's SpO2 was found to be at 85%. Patient was admitted to ICU for NIV. Palliative care was consulted for goals of care. Upon assessment today, patient is lying in bed awake. She is A&Ox3 on 6L NC.. Has some shortness of breath with conversation, states this is baseline for her. Has a headache during encounter, 05/28. No nausea or vomiting. Has had poor p.o. intake. Had a BM yesterday. GOC discussions: met with pt, son, daughter in law at bedside. Introduced self and role and provided medical updates. Pt goals to continue current medical management & get well enough to return home in the future. She also recognizes that home going may not be the best option for her, and that she may require 24/7 care at a nursing facility moving forward. Pt states she filled out HCPOA and designated her daughter. Confirms DNR-CCA/DNI. We discussed symptom management medications. Pt shares she was taking 15mg oxycodone prior to admission. Will reorder. We discuss the possibility of her requiring low dose PRN anxiety meds in the future, such as PRN ativan if starts to have worsening symptoms. Pt states that she does not have a palliative team follow her at [facility]. Discuss that [facility] does not follow there but can see about sending external referral. She agrees with plan. All questions answered. Pain Assessment No pain; has headache Palliative Care Assessments: Goals of care: Continue Current Management and Improve or Maintain Function/Quality of Life Advanced Directives: DNR Functional Assessment: PPS 60% amb reduced; can't do normal housework/sig disease; occ assistance; normal or reduced intake; full LOC or confusion Prognosis: depends upon goals of care and uncertain at this time Spiritual Assessment: No spiritual distress identified Bereavement and Grief: Grief Issues Not Identified PDMP/OARRS Reviewed: Yes-reviewed. Oxycodone, morphine sulfate, oxycodone-acetaminophen reported Social history: Marital status: single Children: 2 adult child(kyler) Living status: skilled nursing Work history: Retired due to disability [place] status: No Mormonism: None ROS: See palliative care ROS/ESAS below; All other systems were reviewed and are negative. [place] Symptom Assessment Score [place] Score Pain Score (if non-verbal, add .FLACC below) 3 Tiredness Score 2 Nausea Score 0 Depression Score 2 Anxiety Score 3 Drowsiness Score 0 Anorexia Score (0= eating well, 10= not eating) 5 Wellbeing Score (10= worst sense of well-being) 5 Constipation 0 Dyspnea Score (0= no shortness of breath) 3 Family Meeting: Participants: none held Family meeting was held to discuss:N/A Medical History[1] Surgical History[2] Family History[3] Unable to obtain family history due to N/A- family history available Allergies[4] Objective: BP 113/64 Pulse 100 Temp 36.1 C (97 F) (Oral) Resp 20 Wt 106 lb (48.1 kg) SpO2 93% BMI 18.19 kg/m Physical Exam Vitals reviewed. Constitutional: Appearance: She is cachectic. She is ill-appearing. HENT: Head: Normocephalic. Nose: Nose normal. Eyes: General: Right eye: No discharge. Left eye: No discharge. Extraocular Movements: Extraocular movements intact. Pupils: Pupils are equal, round, and reactive to light. Cardiovascular: Rate and Rhythm: Normal rate and regular rhythm. Pulses: Normal pulses. Pulmonary: Comments: Diminished breath sounds bilaterally Some shortness of breath with conversation Abdominal: General: Bowel sounds are normal. There is no distension. Palpations: Abdomen is soft. Tenderness: There is no abdominal tenderness. There is no guarding. Skin: General: Skin is warm and dry. Neurological: Mental Status: She is alert and oriented to person, place, and time. Psychiatric: Mood and Affect: Mood normal. Behavior: Behavior normal. Medication information: 24-hour PRN meds received: Zofran x1, oxycodone x2, Seroquel x1 Results/Verification of Data Review Objective data reviewed (must include dates reviewed for labs, imaging reports and other specialty notes): Labs 01/13/25, CXR 01/13, records, medication use, and chart reviewed on 01/13/25 Data in Support of Terminal Illness: Is patient hospice appropriate? Eligible, but not consistent with GOC at this time Transition Note Initiated: yes DB Sanchez CNP [1] Past Medical History: Diagnosis Date Abnormal stress test Acute exacerbation of chronic obstructive pulmonary disease (HCC) 04/12/2018 Allergic rhinitis 1956 Arthritis Asthma ([facility]/HCC) Bronchitis Cancer (HCC) skin Cervical cancer (HCC) Chest pain COPD (chronic obstructive pulmonary disease) (HCC) USE OXYGEN 3 L AT NIGHT DDD (degenerative disc disease), cervical Defect, retina, with detachment right DJD (degenerative joint disease), lumbar Emphysema lung (HCC) Former smoker Hematuria SCHEDULED FOR THE PROCEDURE /SURGERY ON 02/11/2017 Hypokalemia Lung nodules Near syncope 09/19/2023 Osteoporosis Palpitations Pneumonia [id number] Recurrent major depression Sciatica Thoracic compression fracture (HCC) Vitamin D deficiency [2] Past Surgical History: Procedure Laterality Date CYSTOSCOPY 01/12/2017 OFFICE PROCEDURE CYSTOSCOPY 02/11/2017 C&P bladder biopsy EYE SURGERY detached retina 1994 HYSTERECTOMY 11/06/2019 ABDOMINAL RADICAL HYSTERECTOMY WITH BSO AND PELVIC LYMPH; DR. ZIYAD MENENDEZ [facility] OTHER SURGICAL HISTORY Left 12/19/2019 [...] Allergen Reactions Pollen Extract Unknown Cosigned by Imtiaz Fontenot MD at 01/13/2025 2:44 PM [email or web address] Work Phone: 01-13-2025 Progress note Formatting of t his note is different from the original. Images from the original note were not included. [facility] Palliative Care Transitions of Care Note Gonzalo Deluca : 1955 ADMIT DATE: 01/12/2025 DISCHARGE DATE: TBD PRIMARY CARE PHYSICIAN: HERMINIA CASE MD CODE STATUS: DNR-CCA DISCHARGE DIAGNOSES: Acute on chronic hypoxic and hypercarbic respiratory failure Anxiety Depression HOSPITAL COURSE: Gonzalo Deluca is a 69 y.o. female with PMH COPD/, arthritis, asthma, DDD, depression, anxiety, osteoporosis. She presented to ED from nursing facility with increased shortness of breath & cough. Patient's SpO2 was found to be at 85%. Patient was admitted to ICU for NIV. Palliative care was consulted for goals of care. Dyspnea - patient on Oxycodone 15mg q6h PRN SOB, used X 3 in last 24 hrs - will continue with same regimen for now Pain - patient on 15mg q6h PRN,used X 3 in alst 24 hrs At risk for OIC - patient had BM today - will place her on Senna S 1 tab BID Acute on chronic hypoxic and hypercarbic respiratory failure - per Dr. 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 -albumin 2.9 -BMI 18.19 -poor PO intake Debility -increased weakness -admitted from [facility] -PT/OT as able -2nd admission since July 2024 CODE STATUS DISCUSSIONS: -Gonzalo Deluca retains capacity for medical decision-making -HCPOA: daughter Karishma [phone] - Another emergency contact listed is son Jace [phone] - pt admitted from [facility] SNF - met with patient this am, introduced self and role - patient was calm, comfortable, stated she is feeling better - Code status already DNRCCA/DNI - patient stated her goal is to get better and go back to [facility] - provided empathetic listening and emotional support to patient - discussed with bedside RN SYMPTOM MANAGEMENT MEDICATIONS: - not prescribed by our team DISPOSITION: TBD FACILITY/HOME CARE AGENCY NAME: TBD Follow up with Nursing facility Reason for Outpatient/Home/ECF Palliative Care follow-up: N/A Opiate Prescribing - not prescribed by our team SIGNED: Nilesh Frye APRN - [employer] 01/13/2025, 8:47 AM [facility] 01-12-2025 Emergency department Note Pt transported to new room on monitor with medic and RN. Pt awake and alert and oriented on transport. All belongings with pt. [facility] 01-12-2025 Emergency department Note Pt transported to new room on monitor with medic and RN. Pt awake and alert and oriented on transport. All belongings with pt. Report to EMPLOYEE COMMUNICATIONS INTERN at this time. All questions answered. Pt Daughter Karishma Updated at this time as well. All questions answered. RT called for NIV placement. Emergency Department Encounter [facility] ED Patient: Gonzalo Deluca : 1955 Date of Evaluation: 01/12/2025 ED Supervising Physician: Freddy Linder MD I personally evaluated Gonzalo Deluca and made/approved the management plan and take responsibility for the patient management. This will serve as my Supervisory note and shared attestation. I did perform a substantive portion of the visit including all aspects of the Medical Decision Making. I wore appropriate PPE for the entirety of this encounter. In brief, Gonzalo Deluca is a 69 y.o. that presents to the emergency department for shortness of breath. Patient coming from half-way facility. She has a history of COPD and wears 3 L nasal cannula baseline. She was on nonrebreather for EMS for hypoxia. She is currently on 6 L nasal cannula after being weaned off of the nonrebreather. She states she was recently treated for pneumonia about 3 weeks ago with antibiotics. Denies any fever or chest pain or change in cough recently. Denies any history of PE or DVT or recent surgeries leg swelling hemoptysis current cancer. Focused exam: Vitals show tachycardia tachypnea hypoxia She is not acutely distressed she is able to speak in full sentences she has no retractions her lungs have some scattered wheezes and are diminished bilaterally Equal radial pulses Lower extremities no edema Brief ED course/MDM: 69-year-old female here with shortness of breath. Differential COPD exacerbation, pneumonia, ACS, lower suspicion for PE mass COPD is more likely explanation and she has no significant risk factors. Plan is for cardiorespiratory workup labs chest x-ray, EKG nonischemic. Tried to titrate the patient down from 6 L to her baseline 3 L but she became hypoxic in the mid 80s again. Anticipate admission for acute hypoxic respiratory failure. Total Critical Care time was 32 minutes, excluding separately reportable procedures. There was a high probability of clinically significant/life threatening deterioration in the patient's condition which required my urgent intervention. Diagnostics interpreted by me: Xray(s) x-ray of the chest shows chronic interstitial scarring but no infiltrate I personally discussed the patient's management with other clinicians: none All diagnostic, treatment, and disposition decisions were made by myself in conjunction with the LINDA. For all further details of the patient's [...] to contact the dictating provider for clarification.) Freddy Linder MD [employer] Freddy Linder MD 01/12/25 1003 [facility] INTENSIVE CARE UNIT ICU 2 eMERGENCY dEPARTMENT eNCOUnter Pt Name: Gonzalo Deluca Birthdate 1955 Date of evaluation: 01/12/2025 Provider: Amelie Soliz PA-C CHIEF COMPLAINT Chief Complaint Patient presents with Shortness of Breath Pt reports severe SOB from SNF with need for more than baseline oxygen. HISTORY OF PRESENT ILLNESS (Location/Symptom, Timing/Onset,Context/Setting, Quality, Duration, Modifying Factors, Severity) Note limiting factors. HPI This patient is seen in conjunction with Dr. Linder who also interviewed and evaluated the patient at bedside. Gonzalo Deluca is a 69 y.o. female who presents to the emergency department by way of local fire rescue squad from a half-way facility. Patient has a history of COPD and is on 3 L of oxygen by nasal cannula at the facility. Patient has been having increasing shortness of breath and cough. She denies any chest pain or documented fever. Paramedics gave her Solu-Medrol 125 mg and route. She had a breathing treatment prior to transfer. Nursing Notes were reviewed. REVIEW OF SYSTEMS (2+ for4; 10+ for level 5) Review of Systems Constitutional: Negative for chills and fever. HENT: Negative for ear pain and sore throat. Eyes: Negative for pain and visual disturbance. Respiratory: Positive for cough and shortness of breath. Cardiovascular: Negative for chest pain and palpitations. Gastrointestinal: Negative for abdominal pain and vomiting. Genitourinary: Negative for dysuria and hematuria. Musculoskeletal: Negative for arthralgias and back pain. Skin: Negative for color change and rash. Neurological: Negative for seizures and syncope. All other systems reviewed and are negative. PAST MEDICAL HISTORY Medical History[1] SURGICALHISTORY Surgical History[2] CURRENT MEDICATIONS Current Discharge Medication List CONTINUE these medications which have NOT CHANGED Details albuterol (2.5 MG/3ML) 0.083% nebulizer solution Take 3 mL (2.5 mg) by nebulization 2 times daily. Associated Diagnoses: Pulmonary emphysema, unspecified emphysema type (HCC); Chronic obstructive pulmonary disease, unspecified COPD type (HCC) albuterol 108 (90 Base) MCG/ACT inhaler Inhale 2 puffs every 4 hours as needed. aspirin 81 MG EC tablet Take 81 mg by mouth. buPROPion XL (Wellbutrin XL) 150 MG 24 hr tablet Take 150 mg by mouth in the morning. busPIRone (Buspar) 15 MG tablet Take 1 tablet (15 mg) by mouth 2 times daily. Qty: 60 tablet, Refills: 0 calcium carbonate-cholecalciferol (Oyster Shell) 250-3.125 MG-MCG tablet Take 1 tablet by mouth. Diclofenac Sodium (Voltaren) 1 % gel Apply 4 g topically 2 times daily. fluticasone (Flonase) 50 MCG/ACT nasal spray 2 sprays in the morning. Fluticasone Furoate-Vilanterol (Breo Ellipta) 200-25 MCG/ACT aerosol powder Inhale 1 puff daily. Fluticasone-Salmeterol 250-50 MCG/ACT aerosol powder Inhale 250 mcg daily. 30 DAY SUPPLY folic acid (Folvite) 1 MG tablet Take 1 tablet (1 mg) by mouth daily. guaiFENesin (Mucinex) 600 MG 12 hr tablet Take 2 tablets (1,200 mg) by mouth 2 times daily as needed for cough or congestion for up to 28 doses. Do not crush, chew, or split. Qty: 56 tablet, Refills: 0 Associated Diagnoses: Chronic obstructive pulmonary disease with acute lower respiratory infection (HCC) hydrOXYzine pamoate (Vistaril) 25 MG capsule Take 25 mg by mouth. magnesium oxide (Mag-Ox) 400 mg tablet 400 mg daily. melatonin 3 MG tablet Take 1 tablet (3 mg) by mouth Nightly. mirtazapine (Remeron) 15 MG tablet Take 1 tablet (15 mg) by mouth Nightly. Qty: 30 tablet, Refills: 0 montelukast (Singulair) 10 MG tablet Take 10 mg by mouth Nightly. PARoxetine (Paxil) 30 MG tablet Take 1 tablet (30 mg) by mouth every morning. Qty: 30 tablet, Refills: 11 QUEtiapine (SEROquel) 50 MG tablet Take 1 tablet (50 mg) by mouth Nightly as needed (Anxiety and Sleep). tiotropium (Spiriva Respimat) 2.5 MCG/ACT inhaler Inhale 2 puffs in the morning. Zinc 50 MG capsule Take 50 mg by mouth. Pollen extract FAMILY HISTORY Family History[3] SOCIAL HISTORY Social History[4] SCREENINGS PHYSICAL EXAM (5+ for level 4, 8+ for level 5) @EDTRIAGEVSS@ Physical Exam Vitals and nursing note reviewed. Constitutional: General: She is not in acute distress. Appearance: She is well-developed. She is ill-appearing. HENT: Head: Normocephalic and atraumatic. Eyes: Conjunctiva/sclera: Conjunctivae normal. Cardiovascular: Rate and Rhythm: Regular rhythm. Tachycardia present. Heart sounds: No murmur heard. Pulmonary: Effort: Pulmonary effort is normal. Tachypnea present. No respiratory distress. Breath sounds: Examination of the right-upper field reveals decreased breath sounds. Examination of the left-upper field reveals decreased breath sounds. Examination of the right-middle field reveals decreased breath sounds. Examination of the left-middle field reveals decreased breath sounds. Examination of the right-lower field reveals decreased breath sounds. Examination of the left-lower field reveals decreased breath sounds. Decreased breath sounds present. Chest: Chest wall: No tenderness. Musculoskeletal: General: No swelling. Cervical back: Neck supple. Skin: General: Skin is warm and dry. Neurological: Mental Status: She is alert and oriented to person, place, and time. Psychiatric: Mood and Affect: Mood normal. Behavior: Behavior normal. DIAGNOSTIC RESULTS EKG (Per Emergency Physician): RADIOLOGY (Per EmergencyPhysician): Interpretation per the Radiologist below, if available at the time of this note: @EDRISRSLT@ : Labs Reviewed CBC WITH AUTO DIFFERENTIAL - Abnormal Result Value Auto WBC 13.7 (*) RBC 3.99 Hemoglobin 11.5 (*) Hematocrit 38.5 MCV 96.5 MCH 28.8 MCHC 29.9 (*) RDW 13.9 Platelets 168 MPV 9.9 COMPREHENSIVE METABOLIC PANEL - Abnormal SODIUM 141 POTASSIUM 4.4 CHLORIDE 101 CARBON DIOXIDE 33 (*) ANION GAP 7 UREA NITROGEN 16 CREATININE 0.53 (*) GLUCOSE 138 (*) CALCIUM 8.9 AST (SGOT) 33 ALT 39 (*) ALKALINE PHOSPHATASE 154 (*) ALBUMIN 3.3 BILIRUBIN, TOTAL 0.4 TOTAL PROTEIN 7.1 eGFR >90.0 BLOOD GAS, VENOUS - Abnormal pH, Venous 7.287 (*) pCO2, Venous 74.5 (*) pO2, Venous 51.2 HCO3, Venous 34.8 (*) O2 Sat, Venous 82.4 Base Excess, Venous 5.5 (*) Hgb, blood gas 13.8 TCO2, Venous 37.1 (*) Source Of Oxygen Nasal Cannula (LPM) Amount Of Oxygen 3 Narrative: Assessment of oxygenation is best done with an arterial blood gas determination. Reference ranges for pO2, bicarbonate, and base excess are for mixed venous blood. Specimens drawn from a peripheral vein will often have higher values. MANUAL DIFFERENTIAL (CELLAVISION) - Abnormal RBC Morphology abnormal Poikilocytes Moderate (*) Polychromasia Slight (*) Basophilic Stippling Slight (*) Ovalocytes Slight (*) Stomatocytes Marked (*) Neutrophils % 88 (*) Lymphocytes % 3 (*) Monocytes % 5 Eosinophils % 3 Basophils % 1 Absolute Neutrophil Count 12.1 (*) Lymphocytes Absolute 0.4 (*) Monocytes Absolute 0.7 Eosinophils Absolute 0.4 Basophils Absolute 0.1 Neutrophils Manual 88 Lymphocytes Manual 3 Monocytes Manual 5 Eosinophils Manual 3 (*) Basophils Manual 1 Bands Manual Metamyelocytes Manual Myelocytes Manual Promyelocytes Manual Blasts Manual Atypical Lymphocytes Manual Unclassified Cells, Manual BLOOD GAS, VENOUS - Abnormal pH, Venous 7.193 (*) pCO2, Venous 88.4 (*) pO2, Venous 60.9 HCO3, Venous 33.2 (*) O2 Sat, Venous 85.8 Base Excess, Venous 2.6 Hgb, blood gas 12.3 TCO2, Venous 35.9 (*) Source Of Oxygen BiPAP Amount Of Oxygen 60% Narrative: Assessment of oxygenation is best done with an arterial blood gas determination. Reference ranges for pO2, bicarbonate, and base excess are for mixed venous blood. Specimens drawn from a peripheral vein will often have higher values. SALICYLATE - Abnormal SALICYLATES <5.0 (*) ACETAMINOPHEN LEVEL - Abnormal ACETAMINOPHEN <5.0 (*) Narrative: Acetaminophen concentrations greater than 150 ug/mL at 4 hours after ingestion and greater than 40 ug/mL at 12 hours after ingestion are often associated with toxicity. BLOOD GAS, VENOUS - Abnormal pH, Venous 7.209 (*) pCO2, Venous 88.2 (*) pO2, Venous 30.0 HCO3, Venous 34.4 (*) O2 Sat, Venous 50.1 Base Excess, Venous 4.0 (*) Hgb, blood gas 12.1 TCO2, Venous 37.1 (*) Source Of Oxygen Non-Invasive Ventilator Amount Of Oxygen 60 Narrative: Assessment of oxygenation is best done with an arterial blood gas determination. Reference ranges for pO2, bicarbonate, and base excess are for mixed venous blood. Specimens drawn from a peripheral vein will often have higher values. PROCALCITONIN TEST - Abnormal PROCALCITONIN 0.21 (*) Narrative: PCT <0.50 = Low risk of severe sepsis and/or septic shock. PCT >2.00 = High risk of severe sepsis and/or septic shock. BLOOD CULTURE - Normal Blood Culture Blood culture incubation started Narrative: Blood Collection Site: Right Arm BLOOD CULTURE - Normal Blood Culture Blood culture incubation started Narrative: Blood Collection Site: Left Arm SARS-COV-2, FLU A/B, AND RSV COMBO - Normal SARS-CoV-2 Not Detected Respiratory Syncytial Virus Not Detected Influenza A Not Detected Influenza B Not Detected Narrative: Methodology: real-time, RT-PCR The SARS-CoV-2, Flu A/B, and RSV Combo assay is intended for in vitro diagnostic use under the FDA Emergency Use Authorization (EUA). This test has not been FDA cleared or approved. In compliance with this authorization, please visit www.fda.gov/media/999197/downloa d or www.fda.gov/media/133924/downloa d to access the applicable information sheets. HIGH SENSITIVITY TROPONIN, SERIAL BASELINE - Normal Troponin HS Serial Baseline 13 NT PRO BNP - Normal NT PRO BNP 181 Narrative: In patients with suspected acute HF, NT-proBNP age-related cut-points are 450, 900, and 1800 pg/mL for ages <50, 50-75, and >75 years respectively. NT-proBNP concentration <300 pg/mL provides a very high NPV for HF in an acute setting, independent of age. In a non-acute setting, heart failure is unlikely with a NT-proBNP concentration <125 pg/mL while a value >600 pg/mL is likely due to heart failure. Patients with levels in the lovelace zone (between rule-out and rule-in levels) need extra physician attention and ancillary testing. For the unusual patient aged <50 years with severe CKD, a cut point of 1,200 ng/L for NT-proBNP would be indicated. Testing is performed on a new assay on a new instrument and values may not correlate well with previous values. LACTIC ACID WITH REFLEX - Normal LACTIC ACID 0.8 HIGH SENSITIVITY TROPONIN, SERIAL, SECOND TEST - Normal 2h Troponin HS (Serial 2nd Troponin) 9 ETHANOL - Normal ETHANOL IN SER/PLAS <10 Narrative: LOOM SETTER FOURDRINIER depression is seen >100 mg/dL. NOTE: This result is for medical treatment only. Analysis performed using non-forensic procedures. HIGH SENSITIVITY TROPONIN, SERIAL, THIRD TEST - Normal 4h Troponin HS (Serial 3rd Troponin) 8 RESPIRATORY PATHOGENS PANEL BY PCR MRSA BY PCR LEGIONELLA AND STREPTOCOCCUS URINE ANTIGEN, ORDERABLE Narrative: The following orders were created for panel order Legionella and Streptococcus Urine Antigen. Procedure Abnormality Status --------- ------ Legionella and Streptoco...[[id number]] In process Urine Hold Cup[[id number]] Final result Please view results for these tests on the individual orders. LEGIONELLA AND STREPTOCOCCUS URINE ANTIGEN URINE HOLD CUP Extra Tube Hold for add-ons. ETHYL GLUCURONIDE SCREEN, URINE All other labs were within normal range or not returned as of this dictation. EMERGENCY DEPARTMENT COURSE and DIFFERENTIALDIAGNOSIS/MDM: Vitals: Vitals: 01/12/25 1135 01/12/25 1215 01/12/25 1314 01/12/25 1402 BP: 118/73 126/86 108/75 Pulse: (!) 102 99 97 92 Resp: 20 17 Temp: 36.1 C (97 F) TempSrc: Oral SpO2: 95% 99% 100% 98% Weight: Medications aspirin EC tablet 81 mg (81 mg Oral Given 01/12/25 1610) buPROPion XL (Wellbutrin XL) 24 hr tablet 150 mg (has no administration in time range) busPIRone (Buspar) tablet 15 mg (15 mg Oral Given 01/12/25 1610) folic acid (Folvite) tablet 1 mg (1 mg Oral Given 01/12/25 1610) guaiFENesin (Mucinex) 12 hr tablet 1,200 mg (has no administration in time range) melatonin tablet 3 mg (has no administration in time range) mirtazapine (Remeron) tablet 15 mg (has no administration in time range) montelukast (Singulair) tablet 10 mg (has no administration in time range) PARoxetine (Paxil) tablet 30 mg (30 mg Oral Given 01/12/25 161) QUEtiapine (SEROquel) tablet 50 mg (has no administration in time range) mupirocin (Bactroban) 2 % ointment 1 Application (1 Application Nasal Given 01/12/25 161) naloxone (Narcan) injection 0.4 mg (has no administration in time range) ondansetron ODT (Zofran-ODT) disintegrating tablet 4 mg (has no administration in time range) Or ondansetron (Zofran) injection 4 mg (has no administration in time range) influenza vaccine A&B surf ant adjuvanted (Fluad) HIGH-DOSE injection 0.5 mL (has no administration in time range) enoxaparin (Lovenox) syringe 40 mg (40 mg SubCUTAneous Given 01/12/25 161) ipratropium-albuterol (Duo-Neb) 0.5-2.5 mg/3 mL nebulizer solution 3 mL (3 mL Nebulization Given 01/12/25 1400) albuterol (2.5 MG/3ML) 0.083% nebulizer solution 2.5 mg (has no administration in time range) pantoprazole (ProtoNix) EC tablet 40 mg (40 mg Oral Given 01/12/25 161) cefepime (Maxipime) 2,000 mg in sodium chloride 0.9 % 50 mL IVPB Mini-Bag Plus (2,000 mg IntraVENous New Bag 01/12/25 1359) sodium chloride 0.9 % bolus 1,000 mL (0 mL IntraVENous Stopped 01/12/25 1049) ipratropium-albuterol (Duo-Neb) 0.5-2.5 mg/3 mL nebulizer solution 3 mL (3 mL Nebulization Given 01/12/25 0947) oxyCODONE (Roxicodone) immediate release tablet 15 mg (15 mg Oral Given 01/12/25 1108) LORazepam (Ativan) injection 0.5 mg (0.5 mg IntraVENous Given 01/12/25 1129) Medical Decision Making Problems Addressed: COPD exacerbation (HCC): complicated acute illness or injury Hypoxia: complicated acute illness or injury Respiratory acidosis: complicated acute illness or injury Tachycardia: complicated acute illness or injury Amount and/or Complexity of Data Reviewed Labs: ordered. Radiology: ordered. ECG/medicine tests: ordered. Risk Prescription drug management. Decision regarding hospitalization. Patient presents to the emergency department by way of local fire rescue squad from a half-way facility where she resides. She has a history of COPD and has been having increasing productive cough and shortness of breath. The paramedics gave her Solu-Medrol 125 mg and route. She states she had a breathing treatment prior to transfer. She denies any chest pain. She denies any fever. She denies any peripheral edema. Differential diagnosis includes COPD exacerbation, COVID, viral illness, pneumonia Chronic conditions impacting care: COPD, severe malnutrition, anxiety and depression, chronic pain, malignant neoplasm of exocervix, CVA Social determinants affecting health: Reformed smoker. She currently resides in a half-way facility. ED diagnostics interpreted by me included serial troponins, CBC, BNP, CMP, lactate, blood cultures, and VBG. EKG per my review showed the patient to be in a sinus tachycardic rhythm at 110 bpm with no evidence of changes from 07/30/2024. EKG details will be dictated into Epiphany by the ED physician. Chest x-ray, per radiologist review, shows no acute findings. ED medications included IV hydration with 1 L normal saline. She was given a DuoNeb aerosol treatment and maintained on supplemental oxygen. She was given IV Ativan. External medical records reviewed included a telemedicine visit with Brandi Vora, nurse practitioner, on 12/28/2024. Patient was subsequently put on NIV secondary to hypoxia and respiratory acidosis. I then did discuss this case with Dr. Lynn from the intensive care unit who arrived in the ER for final disposition and patient will be placed in the intensive care unit on his service. Total critical care time was 35 minutes excluding separately reportable procedures. There was a high probability of clinically significant/life-threatening deterioration in the patient's condition which required my urgent intervention. CONSULTS: IP CONSULT TO PALLIATIVE CARE IP CONSULT TO WOUND PREVENTION PROCEDURES: Unless otherwise noted below, none Procedures Patients symptoms are consistent with sepsis, severe sepsis, or septic shock (If yes use ".sepsiscoremeasure"): No FINAL IMPRESSION 1. COPD exacerbation (HCC) 2. Respiratory acidosis 3. Hypoxia 4. Tachycardia DISPOSITION/PLAN DISPOSITION Admit 01/12/2025 12:16:28 PM PATIENT REFERRED TO: No follow-up provider specified. DISCHARGE MEDICATIONS: Current Discharge Medication List @[facility]([id number]:LAST:1)@ (Please note: Portions of this note were completed with a voice recognition program. Efforts were made to edit thedictations but occasionally words and phrases are mis-transcribed.) Form [id number] Amelie Soliz PA-C (electronically signed) Emergency Medicine Provider [1] Past Medical History: Diagnosis Date Abnormal stress test Acute exacerbation of chronic obstructive pulmonary disease (HCC) 04/12/2018 Allergic rhinitis 1955 Arthritis Asthma (HHS/HCC) Bronchitis Cancer (HCC) skin Cervical cancer (HCC) Chest pain COPD (chronic obstructive pulmonary disease) (HCC) USE OXYGEN 3 L AT NIGHT DDD (degenerative disc disease), cervical Defect, retina, with detachment right DJD (degenerative joint disease), lumbar Emphysema lung (HCC) Former smoker Hematuria SCHEDULED FOR THE PROCEDURE /SURGERY ON 02/11/2017 Hypokalemia Lung nodules Near syncope 09/19/2023 Osteoporosis Palpitations Pneumonia [id number] Recurrent major depression Sciatica Thoracic compression fracture (HCC) Vitamin D deficiency [2] Past Surgical History: Procedure Laterality Date CYSTOSCOPY 01/12/2017 OFFICE PROCEDURE CYSTOSCOPY 02/11/2017 C&P bladder biopsy EYE SURGERY detached retina 1994 HYSTERECTOMY 11/06/2019 ABDOMINAL RADICAL HYSTERECTOMY WITH BSO AND PELVIC LYMPH; DR. ZIYAD MENENDEZ [facility] OTHER SURGICAL HISTORY Left 12/19/2019 [...] Problems Brother Uterine cancer Neg Hx [4] Social History Socioeconomic History Marital status: Tobacco Use Smoking status: Former Current packs/day: 0.00 Average packs/day: 1.5 packs/day for 39.5 years (59.3 ttl pk-yrs) Types: Cigarettes Start date: 1972 Quit date: 09/20/2011 Years since quittin.3 Passive exposure: Past Smokeless tobacco: Never Tobacco comments: Quit smoking: pt states she quit 4-5 years ago Vaping Use Vaping status: Every Day Substances: Nicotine Devices: Refillable tank Substance and Sexual Activity Alcohol use: Not Currently Comment: Approx once a year Drug use: Never Sexual activity: Not Currently Partners: Male control/protection: Post-menopausal Social Drivers of Health Financial Resource Strain: [...] Transportation Needs (06/06/2024) Received from [facility] PRAPARE - Transportation Lack of Transportation (Medical): Yes Lack of Transportation (Non-Medical): No Physical Activity: Insufficiently Active (07/31/2024) Exercise Vital Sign Days of Exercise per Week: 3 days Minutes of Exercise per Session: 20 min Stress: No Stress Concern Present (07/31/2024) [employer] [place] [employer] - Occupational Stress Questionnaire Feeling of Stress : Only a little Recent Concern: Stress - Stress Concern Present (06/06/2024) Received from [facility] [place] [facility] [employer] - Occupational Stress Questionnaire Feeling of Stress : To some extent Social Connections: Socially Isolated (07/31/2024) Social Connection and Isolation Panel [NHANES] Frequency of Communication with Friends and Family: Three times a week Frequency of Social Gatherings with Friends and Family: Three times a week Attends Voodoo Services: Never Active Member of Clubs or Organizations: No Attends Club or Organization Meetings: Never Marital Status: Intimate Partner Violence: Not At Risk (01/12/2025) Humiliation, Afraid, Rape, and Kick questionnaire Fear of Current or Ex-Partner: No Emotionally Abused: No Physically Abused: No Sexually Abused: No Housing Stability: Low Risk (01/12/2025) Housing Stability Vital Sign Unable to Pay for Housing in the Last Year: No Number of Times Moved in the Last Year: 0 Homeless in the Last Year: No Amelie Soliz PA-C 01/12/25 1711 Cosigned by Freddy Linder MD at 01/13/2025 2:29 PM EDT documented in this encounter [facility] 01-12-2025 Emergency department Note Report to EMPLOYEE COMMUNICATIONS INTERN at this time. All questions answered. Pt Daughter Karishma Updated at this time as well. All questions answered. [facility] 01-12-2025 History and physical note Images from the original note were not included. Internal Medicine: MICU Initial History and Physical Name: Gonzalo Deluca : 1955(69 y.o.) Date: 01/12/25 Attending: Dr. Lynn Subjective: Chief Complaint: Shortness of breath respiratory failure HPI: Patient is a 69-year-old female with known history of advanced emphysema, chronic respiratory failure on supplemental oxygen lives at the [facility] brought to the emergency room today by EMS with worsening shortness of breath and cough patient's oxygen saturation was at 85th percentile Patient had a VBG done in the emergency room with pH of 7.28 pCO2 of 74 pO2 of 51 Chest x-ray done in the emergency room, interpreted by me did not show any acute infiltrates Patient had a CT scan of the chest done on 20 November 2024 which showed advanced by lateral panlobular emphysema mild scattered endobronchial mucous plugging diffuse bronchial wall thickening diffuse moderate bronchiectasis interval resolution of previously visualized subpleural consolidation in the left lower lobe new mild focal consolidation in the medial aspect of the right upper lobe bilateral scattered tree-in-bud opacities multiple lung nodules Also mentioned in the nursing report is that a bottle of alcohol was found in patient's room some of it was used when asked the patient did she drink any alcohol she said no Patient has history of claustrophobia was having trouble tolerating the fullface mask patient was given 0.5 mg of Ativan and oxy in the emergency room Medical History[1] Surgical History[2] Family History[3] Social History Socioeconomic History Marital status: Spouse name: Not on file Number of children: Not on file Years of education: Not on file Highest education level: Not on file Occupational History Not on file Tobacco Use Smoking status: Former Current packs/day: 0.00 Average packs/day: 1.5 packs/day for 39.5 years (59.3 ttl pk-yrs) Types: Cigarettes Start date: 1972 Quit date: 09/20/2011 Years since quittin.3 Passive exposure: Past Smokeless tobacco: Never Tobacco comments: Quit smoking: pt states she quit 4-5 years ago Vaping Use Vaping status: Every Day Substances: Nicotine Devices: Refillable tank Substance and Sexual Activity Alcohol use: Not Currently Comment: Approx once a year Drug use: Never Sexual activity: Not Currently Partners: Male control/protection: Post-menopausal Other Topics Concern Not on file Social [...] Transportation Needs (06/06/2024) Received from [facility] PRAPARE - Transportation Lack of Transportation (Medical): Yes Lack of Transportation (Non-Medical): No Physical Activity: Insufficiently Active (07/31/2024) Exercise Vital Sign Days of Exercise per Week: 3 days Minutes of Exercise per Session: 20 min Stress: No Stress Concern Present (07/31/2024) [employer] [place] [employer] - Occupational Stress Questionnaire Feeling of Stress : Only a little Recent Concern: Stress - Stress Concern Present (06/06/2024) Received from [facility] [place] [facility] [employer] - Occupational Stress Questionnaire Feeling of Stress : To some extent Social Connections: Socially Isolated (07/31/2024) Social Connection and Isolation Panel [NHANES] Frequency of Communication with Friends and Family: Three times a week Frequency of Social Gatherings with Friends and Family: Three times a week Attends Voodoo Services: Never Active Member of Clubs or [...] 0 Homeless in the Last Year: No Allergies[4] Prior to Admission medications Medication Sig Start Date End Date Taking? Authorizing Provider albuterol (2.5 MG/3ML) 0.083% nebulizer solution Take 3 mL (2.5 mg) by nebulization 2 times daily. 08/08/24 08/08/25 Rena Beverly MD albuterol 108 (90 Base) MCG/ACT inhaler Inhale 2 puffs every 4 hours as needed. 08/06/21 Historical Provider, aspirin 81 MG EC tablet Take 81 mg by mouth. 11/25/19 Historical Provider, buPROPion XL (Wellbutrin XL) 150 MG 24 hr tablet Take 150 mg by mouth in the morning. 08/06/21 08/20/24 Historical Provider, busPIRone (Buspar) 15 MG tablet Take 1 tablet (15 mg) by mouth 2 times daily. 09/22/23 08/20/24 Roland Ortiz DO calcium carbonate-cholecalciferol (Oyster Shell) 250-3.125 MG-MCG tablet Take 1 tablet by mouth. Historical Provider, Diclofenac Sodium (Voltaren) 1 % gel Apply 4 g topically 2 times daily. 02/18/23 Earlene Echavarria MD fluticasone (Flonase) 50 MCG/ACT nasal spray 2 sprays in the morning. 08/06/21 08/20/24 Historical Provider, Fluticasone Furoate-Vilanterol (Breo Ellipta) 200-25 MCG/ACT aerosol powder Inhale 1 puff daily. Historical Provider, Fluticasone-Salmeterol 250-50 MCG/ACT aerosol powder Inhale 250 mcg daily. 30 DAY SUPPLY 08/19/24 Historical Provider, folic acid (Folvite) 1 MG tablet Take 1 tablet (1 mg) by mouth daily. 08/09/24 08/09/25 Rena Beverly MD guaiFENesin (Mucinex) 600 MG 12 hr tablet Take 2 tablets (1,200 mg) by mouth 2 times daily as needed for cough or congestion for up to 28 doses. Do not crush, chew, or split. 08/20/24 Elyssa Tesfaye NP hydrOXYzine pamoate (Vistaril) 25 MG capsule Take 25 mg by mouth. 11/14/24 Historical Provider, magnesium oxide (Mag-Ox) 400 mg tablet 400 mg daily. Historical Provider, melatonin 3 MG tablet Take 1 tablet (3 mg) by mouth Nightly. 09/22/23 Roland Ortiz DO mirtazapine (Remeron) 15 MG tablet Take 1 tablet (15 mg) by mouth Nightly. 09/22/23 08/20/24 Roland Ortiz DO montelukast (Singulair) 10 MG tablet Take 10 mg by mouth Nightly. Historical Provider, PARoxetine (Paxil) 30 MG tablet Take 1 tablet (30 mg) by mouth every morning. 08/09/24 08/09/25 Rena Beverly MD QUEtiapine (SEROquel) 50 MG tablet Take 1 tablet (50 mg) by mouth Nightly as needed (Anxiety and Sleep). 08/08/24 09/07/24 Rena Beverly MD tiotropium (Spiriva Respimat) 2.5 MCG/ACT inhaler Inhale 2 puffs in the morning. 11/20/21 Historical Provider, Zinc 50 MG capsule Take 50 mg by mouth. Historical Provider, Objective: Oxygen Delivery: O2 Flow Rate (L/min): 6 L/min VITALS: BP 118/73 Pulse 99 Temp 36.7 C (98 F) (Oral) Resp 20 Wt 47.6 kg (105 lb) SpO2 99% BMI 18.02 kg/m CURRENT PULSE OXIMETRY: SpO2: 99 % Review of Systems Constitutional: General Appearance []WDWN []Obese [x]Cachectic []Thin [x]Ill Eyes: Inspection of Pupils/Irises Pupils round and react: [x]Yes []No Sclera: []Icteric [x]Non-Icteric Inspection of Conjunctiva/Lids Conjunctiva: []Injected [x]Non-Injected Lids: []Intact [x]Lesion Present ENT/Mouth: External Inspection of ears/nose [] Normal [] Scar/Lesion/Mass Inspection of teeth/lips/gums Dentition: [][place] Teeth []Dentures Lips/Gums: []Intact []Lesion Present Mucosa: []Brent []Moist []Dry Neck: External Appearance Overall Appearance: [x]Normal []Lesion/Mass/Crepitus Present Trachea midline: [x]Yes []No Thyroid [x]Normal []Enlarged []Tender []Mass []Absent Respiratory: Respiratory effort [x]Labored []Non-Labored [] Mechanically-Ventilated Auscultation []Clear [x]Crackles [x]Wheezes []Rhonchi Cardiovascular: Auscultation Rate: [x]Regular []Irregular []Tachycardia []Bradycardia Rhythm: [x]Regular []Irregular Murmur: []Present [x]Absent Extremities Peripheral Edema: []Present []Absent Varicosities: []Present []Absent Gastrointestinal: Abdomen Palpation: [x]Soft []Firm []Tender [x]Non-Tender []Distended []Non-distended Mass: []Present []Absent Bowel Sounds: []Present []Absent Hernia: []Present []Absent Liver/Spleen: []Hepatosplenomegaly []Organomegaly Absent Musculoskeletal: Inspection of Digits and Nails Cyanosis: []Present []Absent Clubbing: []Present []Absent Ischemia: []Present []Absent Infection: []Present []Absent Extremities KNOX Equally: Except ([]RUE []RLE []LUE []LLE) Strength/Tone: Intact and Normal ([]RUE []RLE []LUE []LLE) Skin: Inspection []Normal []Rash []Lesion []Ulcer Palpation []Warm []Cool []Dry []Clammy []Nodules []Induration []Skin-tightening Cap-Refill: [] <3 sec [] >3 seconds (delayed) Neurologic: GCS EYE: 2 - Opens to pain GCS MOTOR: 5 - Localizes to pain (purposeful movements to painful stimulus) GCS VERBAL: 4 - Confused Total GCS: 9 [] Sensation grossly intact Psych: Mental Status Alert: []Yes [] No Oriented: []x0 []X1 []X2 []x3 Mood/Affect []Normal []Flat []Agitated []Depressed []Anxious []Calm []Sedated []NAD [facility] within last 24 hours- BMP: Recent Labs 01/12/25 0945 NA 141 K 4.4 CL 101 CO2 33* BUN 16 CREATININE 0.53* CALCIUM 8.9 LFTs: Recent Labs 01/12/25 09 AST 33 ALT 39* PROT 7.1 ALBUMIN 3.3 BILITOT 0.4 ALKPHOS 154* Glucose: Recent Labs 01/12/25 09 GLUCOSE 138* Procal: No results for input(s): "PROCAL" in the last 72 hours. CBC: Recent Labs 01/12/25 0945 01/12/25 09 WBC 13.7* -- HGB 11.5* 13.8 HCT 38.5 -- PLT 168 -- MCV 96.5 -- RDW 13.9 -- ABGs: Recent Labs 01/12/25 09 [id number] Nasal Cannula (LPM) Lactic Acid: Recent Labs 01/12/25 0945 LACTATE 0.8 INR: No results for input(s): "INR" in the last 72 hours. Cardiac Injury Profile: No results for input(s): "CKTOTAL", "CKMB", "TROPONINI" in the last 72 hours. Labs in Last 3 months: Lab Results Component Value Date TSH 0.28 (L) 07/30/2024 VITD25 30 09/21/2023 INR 1.0 11/21/2019 Microbiology- Urine Cx: No results found for: URINECX Blood Cx: Lab Results Component Value Date BLOODCX No growth at 5 days 08/07/2023 Sputum Cx: Lab Results Component Value Date RESPCULT Many respiratory linus present. 08/01/2024 RESPCULT Many Pseudomonas aeruginosa (A) 08/01/2024 Gram Stain: Lab Results Component Value Date LABGRAM Few Epithelial cells per low power field (A) 08/01/2024 LABGRAM (A) 08/01/2024 Many Polymorphonuclear leukocytes per low power field LABGRAM Many Gram positive cocci (A) 08/01/2024 LABGRAM Moderate Gram negative diplococci (A) 08/01/2024 PNA PCR: Lab Results Component Value Date HUMANMETAPNE Not Detected 08/01/2024 COVID19: No results found for: COVID19 Legionella Ag: Lab Results Component Value Date LEGIONELLAPN Not Detected 08/01/2024 Strep Ag: No results for input(s): "STREPPNEUMO" in the last 72 hours. Imaging- Assessment and Plan: Principal Problem: COPD exacerbation ([facility]) Impression/plan Acute encephalopathy probably related to combination of hypercapnia/significant hypoxia may be little bit effect of medications as well, adjust NIV settings to improve gas exchange avoid sedatives Acute on chronic hypoxic/hypercapnic respiratory failure probably related to COPD exacerbation, keep on noninvasive ventilation to help decrease work of breathing and improve gas exchange Exacerbation of COPD-bronchodilators/steroids/NI V/supplemental oxygen Bronchiectasis exacerbation, IV antibiotics Severe malnutrition related to above Pseudomonas/Moraxella/Streptococ cus pneumonia in July 2024 requiring hospitalization Anxiety/depression continue home meds as tolerated Patient current condition and overall prognosis discussed with her daughter Karishma GI Prophylaxis: Pantoprazole PO DVT Prophylaxis: Lovenox 40 q 24hr - creatinine clearance >30 BMI Classification: Body mass index is 18.02 kg/m . underweight BMI <18.5 Disposition: Admit to ICU Critical Care Time: > 35 min Total critical care time caring for this patient with life threatening, unstable organ failure, including direct patient contact, management of life support systems, review of data including imaging and labs, discussions with other team members and physicians, excluding procedures. [1] Past Medical History: Diagnosis Date Abnormal stress test Acute exacerbation of chronic obstructive pulmonary disease (HCC) 04/12/2018 Allergic rhinitis 1957 Arthritis Asthma ([facility]/HCC) Bronchitis Cancer (HCC) skin Cervical cancer (HCC) Chest pain COPD (chronic obstructive pulmonary disease) ([facility]) USE OXYGEN 3 L AT NIGHT DDD (degenerative disc disease), cervical Defect, retina, with detachment right DJD (degenerative joint disease), lumbar Emphysema lung (HCC) Former smoker Hematuria SCHEDULED FOR THE PROCEDURE /SURGERY ON 02/11/2017 Hypokalemia Lung nodules Near syncope 09/19/2023 Osteoporosis Palpitations Pneumonia [id number] Recurrent major depression Sciatica Thoracic compression fracture (HCC) Vitamin D deficiency [2] Past Surgical History: Procedure Laterality Date CYSTOSCOPY 01/12/2017 OFFICE PROCEDURE CYSTOSCOPY 02/11/2017 C&P bladder biopsy EYE SURGERY detached retina 1994 HYSTERECTOMY 11/06/2019 ABDOMINAL RADICAL HYSTERECTOMY WITH BSO AND PELVIC LYMPH; DR. ZIYAD MENENDEZ [facility] OTHER SURGICAL HISTORY Left 12/19/2019 [...] [4] Allergies Allergen Reactions Pollen Extract Unknown [facility] 01-12-2025 Note [facility] [employer] [facility] 01-12-2025 History and physical note Images from the original note were not included. Internal Medicine: MICU Initial History and Physical Name: Gonzalo Deluca : 1955(69 y.o.) Date: 01/12/25 Attending: Dr. Lynn Subjective: Chief Complaint: Shortness of breath respiratory failure HPI: Patient is a 69-year-old female with known history of advanced emphysema, chronic respiratory failure on supplemental oxygen lives at the extended-care facility brought to the emergency room today by EMS with worsening shortness of breath and cough patient's oxygen saturation was at 85th percentile Patient had a VBG done in the emergency room with pH of 7.28 pCO2 of 74 pO2 of 51 Chest x-ray done in the emergency room, interpreted by me did not show any acute infiltrates Patient had a CT scan of the chest done on 20 November 2024 which showed advanced by lateral panlobular emphysema mild scattered endobronchial mucous plugging diffuse bronchial wall thickening diffuse moderate bronchiectasis interval resolution of previously visualized subpleural consolidation in the left lower lobe new mild focal consolidation in the medial aspect of the right upper lobe bilateral scattered tree-in-bud opacities multiple lung nodules Also mentioned in the nursing report is that a bottle of alcohol was found in patient's room some of it was used when asked the patient did she drink any alcohol she said no Patient has history of claustrophobia was having trouble tolerating the fullface mask patient was given 0.5 mg of Ativan and oxy in the emergency room Medical History[1] Surgical History[2] Family History[3] Social History Socioeconomic History Marital status: Spouse name: Not on file Number of children: Not on file Years of education: Not on file Highest education level: Not on file Occupational History Not on file Tobacco Use Smoking status: Former Current packs/day: 0.00 Average packs/day: 1.5 packs/day for 39.5 years (59.3 ttl pk-yrs) Types: Cigarettes Start date: 1972 Quit date: 09/20/2011 Years since quittin.3 Passive exposure: Past Smokeless tobacco: Never Tobacco comments: Quit smoking: pt states she quit 4-5 years ago Vaping Use Vaping status: Every Day Substances: Nicotine Devices: Refillable tank Substance and Sexual Activity Alcohol use: Not Currently Comment: Approx once a year Drug use: Never Sexual activity: Not Currently Partners: Male control/protection: Post-menopausal Other Topics Concern Not on file Social [...] Transportation Needs (06/06/2024) Received from [facility] - Transportation Lack of Transportation (Medical): Yes Lack of Transportation (Non-Medical): No Physical Activity: Insufficiently Active (07/31/2024) Exercise Vital Sign Days of Exercise per Week: 3 days Minutes of Exercise per Session: 20 min Stress: No Stress Concern Present (07/31/2024) [employer] [place] [employer] - Occupational Stress Questionnaire Feeling of Stress : Only a little Recent Concern: Stress - Stress Concern Present (06/06/2024) Received from [facility] [place] [facility] [employer] - Occupational Stress Questionnaire Feeling of Stress : To some extent Social Connections: Socially Isolated (07/31/2024) Social Connection and Isolation Panel [NHANES] Frequency of Communication with Friends and Family: Three times a week Frequency of Social Gatherings with Friends and Family: Three times a week Attends Voodoo Services: Never Active Member of Clubs or [...] 0 Homeless in the Last Year: No Allergies[4] Prior to Admission medications Medication Sig Start Date End Date Taking? Authorizing Provider albuterol (2.5 MG/3ML) 0.083% nebulizer solution Take 3 mL (2.5 mg) by nebulization 2 times daily. 08/08/24 08/08/25 Rena Beverly MD albuterol 108 (90 Base) MCG/ACT inhaler Inhale 2 puffs every 4 hours as needed. 08/06/21 Historical Provider, aspirin 81 MG EC tablet Take 81 mg by mouth. 11/25/19 Historical Provider, buPROPion XL (Wellbutrin XL) 150 MG 24 hr tablet Take 150 mg by mouth in the morning. 08/06/21 08/20/24 Historical Provider, busPIRone (Buspar) 15 MG tablet Take 1 tablet (15 mg) by mouth 2 times daily. 09/22/23 08/20/24 Roland Ortiz DO calcium carbonate-cholecalciferol (Oyster Shell) 250-3.125 MG-MCG tablet Take 1 tablet by mouth. Historical Provider, Diclofenac Sodium (Voltaren) 1 % gel Apply 4 g topically 2 times daily. 02/18/23 Earlene Echavarria MD fluticasone (Flonase) 50 MCG/ACT nasal spray 2 sprays in the morning. 08/06/21 08/20/24 Historical Provider, Fluticasone Furoate-Vilanterol (Breo Ellipta) 200-25 MCG/ACT aerosol powder Inhale 1 puff daily. Historical Provider, Fluticasone-Salmeterol 250-50 MCG/ACT aerosol powder Inhale 250 mcg daily. 30 DAY SUPPLY 08/19/24 Historical ProviderMD folic acid (Folvite) 1 MG tablet Take 1 tablet (1 mg) by mouth daily. 08/09/24 08/09/25 Rena Beverly MD guaiFENesin (Mucinex) 600 MG 12 hr tablet Take 2 tablets (1,200 mg) by mouth 2 times daily as needed for cough or congestion for up to 28 doses. Do not crush, chew, or split. 08/20/24 Elyssa Tesfaye NP hydrOXYzine pamoate (Vistaril) 25 MG capsule Take 25 mg by mouth. 11/14/24 Historical Provider, magnesium oxide (Mag-Ox) 400 mg tablet 400 mg daily. Historical Provider, melatonin 3 MG tablet Take 1 tablet (3 mg) by mouth Nightly. 09/22/23 Roland Ortiz DO mirtazapine (Remeron) 15 MG tablet Take 1 tablet (15 mg) by mouth Nightly. 09/22/23 08/20/24 Roland Ortiz DO montelukast (Singulair) 10 MG tablet Take 10 mg by mouth Nightly. Historical ProviderMD PARoxetine (Paxil) 30 MG tablet Take 1 tablet (30 mg) by mouth every morning. 08/09/24 08/09/25 Rena Beverly MD QUEtiapine (SEROquel) 50 MG tablet Take 1 tablet (50 mg) by mouth Nightly as needed (Anxiety and Sleep). 08/08/24 09/07/24 Rena Beverly MD tiotropium (Spiriva Respimat) 2.5 MCG/ACT inhaler Inhale 2 puffs in the morning. 11/20/21 Historical ProviderMD Zinc 50 MG capsule Take 50 mg by mouth. Historical ProviderMD Objective: Oxygen Delivery: O2 Flow Rate (L/min): 6 L/min VITALS: BP 118/73 Pulse 99 Temp 36.7 C (98 F) (Oral) Resp 20 Wt 47.6 kg (105 lb) SpO2 99% BMI 18.02 kg/m CURRENT PULSE OXIMETRY: SpO2: 99 % Review of Systems Constitutional: General Appearance []WDWN []Obese [x]Cachectic []Thin [x]Ill Eyes: Inspection of Pupils/Irises Pupils round and react: [x]Yes []No Sclera: []Icteric [x]Non-Icteric Inspection of Conjunctiva/Lids Conjunctiva: []Injected [x]Non-Injected Lids: []Intact [x]Lesion Present ENT/Mouth: External Inspection of ears/nose [] Normal [] Scar/Lesion/Mass Inspection of teeth/lips/gums Dentition: [][place] Teeth []Dentures Lips/Gums: []Intact []Lesion Present Mucosa: []Brent []Moist []Dry Neck: External Appearance Overall Appearance: [x]Normal []Lesion/Mass/Crepitus Present Trachea midline: [x]Yes []No Thyroid [x]Normal []Enlarged []Tender []Mass []Absent Respiratory: Respiratory effort [x]Labored []Non-Labored [] Mechanically-Ventilated Auscultation []Clear [x]Crackles [x]Wheezes []Rhonchi Cardiovascular: Auscultation Rate: [x]Regular []Irregular []Tachycardia []Bradycardia Rhythm: [x]Regular []Irregular Murmur: []Present [x]Absent Extremities Peripheral Edema: []Present []Absent Varicosities: []Present []Absent Gastrointestinal: Abdomen Palpation: [x]Soft []Firm []Tender [x]Non-Tender []Distended []Non-distended Mass: []Present []Absent Bowel Sounds: []Present []Absent Hernia: []Present []Absent Liver/Spleen: []Hepatosplenomegaly []Organomegaly Absent Musculoskeletal: Inspection of Digits and Nails Cyanosis: []Present []Absent Clubbing: []Present []Absent Ischemia: []Present []Absent Infection: []Present []Absent Extremities KNOX Equally: Except ([]RUE []RLE []LUE []LLE) Strength/Tone: Intact and Normal ([]RUE []RLE []LUE []LLE) Skin: Inspection []Normal []Rash []Lesion []Ulcer Palpation []Warm []Cool []Dry []Clammy []Nodules []Induration []Skin-tightening Cap-Refill: [] <3 sec [] >3 seconds (delayed) Neurologic: GCS EYE: 2 - Opens to pain GCS MOTOR: 5 - Localizes to pain (purposeful movements to painful stimulus) GCS VERBAL: 4 - Confused Total GCS: 9 [] Sensation grossly intact Psych: Mental Status Alert: []Yes [] No Oriented: []x0 []X1 []X2 []x3 Mood/Affect []Normal []Flat []Agitated []Depressed []Anxious []Calm []Sedated [][facility] within last 24 hours- BMP: Recent Labs 01/12/25 0945 NA 141 K 4.4 CL 101 CO2 33* BUN 16 CREATININE 0.53* CALCIUM 8.9 LFTs: Recent Labs 01/12/25 0945 AST 33 ALT 39* PROT 7.1 ALBUMIN 3.3 BILITOT 0.4 ALKPHOS 154* Glucose: Recent Labs 01/12/25 0945 GLUCOSE 138* Procal: No results for input(s): "PROCAL" in the last 72 hours. CBC: Recent Labs 01/12/25 0945 01/12/25 0946 WBC 13.7* -- HGB 11.5* 13.8 HCT 38.5 -- PLT 168 -- MCV 96.5 -- RDW 13.9 -- ABGs: Recent Labs 01/12/25 0946 [id number] Nasal Cannula (LPM) Lactic Acid: Recent Labs 01/12/25 0945 LACTATE 0.8 INR: No results for input(s): "INR" in the last 72 hours. Cardiac Injury Profile: No results for input(s): "CKTOTAL", "CKMB", "TROPONINI" in the last 72 hours. Labs in Last 3 months: Lab Results Component Value Date TSH 0.28 (L) 07/30/2024 VITD25 30 09/21/2023 INR 1.0 11/21/2019 Microbiology- Urine Cx: No results found for: URINECX Blood Cx: Lab Results Component Value Date BLOODCX No growth at 5 days 08/07/2023 Sputum Cx: Lab Results Component Value Date RESPCULT Many respiratory linus present. 08/01/2024 RESPCULT Many Pseudomonas aeruginosa (A) 08/01/2024 Gram Stain: Lab Results Component Value Date LABGRAM Few Epithelial cells per low power field (A) 08/01/2024 LABGRAM (A) 08/01/2024 Many Polymorphonuclear leukocytes per low power field LABGRAM Many Gram positive cocci (A) 08/01/2024 LABGRAM Moderate Gram negative diplococci (A) 08/01/2024 PNA PCR: Lab Results Component Value Date HUMANMETAPNE Not Detected 08/01/2024 COVID19: No results found for: COVID19 Legionella Ag: Lab Results Component Value Date LEGIONELLAPN Not Detected 08/01/2024 Strep Ag: No results for input(s): "STREPPNEUMO" in the last 72 hours. Imaging- Assessment and Plan: Principal Problem: COPD exacerbation (HCC) Impression/plan Acute encephalopathy probably related to combination of hypercapnia/significant hypoxia may be little bit effect of medications as well, adjust NIV settings to improve gas exchange avoid sedatives Acute on chronic hypoxic/hypercapnic respiratory failure probably related to COPD exacerbation, keep on noninvasive ventilation to help decrease work of breathing and improve gas exchange Exacerbation of COPD-bronchodilators/steroids/NI V/supplemental oxygen Bronchiectasis exacerbation, IV antibiotics Severe malnutrition related to above Pseudomonas/Moraxella/Streptococ cus pneumonia in July 2024 requiring hospitalization Anxiety/depression continue home meds as tolerated Patient current condition and overall prognosis discussed with her daughter Karishma GI Prophylaxis: Pantoprazole PO DVT Prophylaxis: Lovenox 40 q 24hr - creatinine clearance >30 BMI Classification: Body mass index is 18.02 kg/m . underweight BMI <18.5 Disposition: Admit to ICU Critical Care Time: > 35 min Total critical care time caring for this patient with life threatening, unstable organ failure, including direct patient contact, management of life support systems, review of data including imaging and labs, discussions with other team members and physicians, excluding procedures. [1] Past Medical History: Diagnosis Date Abnormal stress test Acute exacerbation of chronic obstructive pulmonary disease (HCC) 04/12/2018 Allergic rhinitis 1957 Arthritis Asthma ([facility]/HCC) Bronchitis Cancer (HCC) skin Cervical cancer (HCC) Chest pain COPD (chronic obstructive pulmonary disease) (HCC) USE OXYGEN 3 L AT NIGHT DDD (degenerative disc disease), cervical Defect, retina, with detachment right DJD (degenerative joint disease), lumbar Emphysema lung (HCC) Former smoker Hematuria SCHEDULED FOR THE PROCEDURE /SURGERY ON 02/11/2017 Hypokalemia Lung nodules Near syncope 09/19/2023 Osteoporosis Palpitations Pneumonia [id number] Recurrent major depression Sciatica Thoracic compression fracture (HCC) Vitamin D deficiency [2] Past Surgical History: Procedure Laterality Date CYSTOSCOPY 01/12/2017 OFFICE PROCEDURE CYSTOSCOPY 02/11/2017 C&P bladder biopsy EYE SURGERY detached retina 1994 HYSTERECTOMY 11/06/2019 ABDOMINAL RADICAL HYSTERECTOMY WITH BSO AND PELVIC LYMPH; DR. ZIYAD MENENDEZ [facility] OTHER SURGICAL HISTORY Left 12/19/2019 Med [...] [4] Allergies Allergen Reactions Pollen Extract Unknown documented in this encounter [facility] 01-12-2025 Emergency department Note RT called for NIV placement. [facility] 01-12-2025 Physician Emergency department Note Emergency Department Encounter [facility] ED Patient: Gonzalo Deluca : 1955 Date of Evaluation: 01/12/2025 ED Supervising Physician: Freddy Linder MD I personally evaluated Gonzalo Deluca and made/approved the management plan and take responsibility for the patient management. This will serve as my Supervisory note and shared attestation. I did perform a substantive portion of the visit including all aspects of the Medical Decision Making. I wore appropriate PPE for the entirety of this encounter. In brief, Gonzalo Deluca is a 69 y.o. that presents to the emergency department for shortness of breath. Patient coming from half-way facility. She has a history of COPD and wears 3 L nasal cannula baseline. She was on nonrebreather for EMS for hypoxia. She is currently on 6 L nasal cannula after being weaned off of the nonrebreather. She states she was recently treated for pneumonia about 3 weeks ago with antibiotics. Denies any fever or chest pain or change in cough recently. Denies any history of PE or DVT or recent surgeries leg swelling hemoptysis current cancer. Focused exam: Vitals show tachycardia tachypnea hypoxia She is not acutely distressed she is able to speak in full sentences she has no retractions her lungs have some scattered wheezes and are diminished bilaterally Equal radial pulses Lower extremities no edema Brief ED course/MDM: 69-year-old female here with shortness of breath. Differential COPD exacerbation, pneumonia, ACS, lower suspicion for PE mass COPD is more likely explanation and she has no significant risk factors. Plan is for cardiorespiratory workup labs chest x-ray, EKG nonischemic. Tried to titrate the patient down from 6 L to her baseline 3 L but she became hypoxic in the mid 80s again. Anticipate admission for acute hypoxic respiratory failure. Total Critical Care time was 32 minutes, excluding separately reportable procedures. There was a high probability of clinically significant/life threatening deterioration in the patient's condition which required my urgent intervention. Diagnostics interpreted by me: Xray(s) x-ray of the chest shows chronic interstitial scarring but no infiltrate I personally discussed the patient's management with other clinicians: none All diagnostic, treatment, and disposition decisions were made by myself in conjunction with the LINDA. For all further details of the patient's [...] to contact the dictating provider for clarification.) Freddy Linder MD [employer] Freddy Linder MD 01/12/25 1003 [facility] 01-12-2025 Physician Emergency department Note [facility] INTENSIVE CARE UNIT ICU 2 eMERGENCY dEPARTMENT eNCOUnter Pt Name: Gonzalo Deluca Birthdate 1955 Date of evaluation: 01/12/2025 Provider: Amelie Soliz PA-C CHIEF COMPLAINT Chief Complaint Patient presents with Shortness of Breath Pt reports severe SOB from SNF with need for more than baseline oxygen. HISTORY OF PRESENT ILLNESS (Location/Symptom, Timing/Onset,Context/Setting, Quality, Duration, Modifying Factors, Severity) Note limiting factors. HPI This patient is seen in conjunction with Dr. Linder who also interviewed and evaluated the patient at bedside. Gonzalo Deluca is a 69 y.o. female who presents to the emergency department by way of local fire rescue squad from a half-way facility. Patient has a history of COPD and is on 3 L of oxygen by nasal cannula at the facility. Patient has been having increasing shortness of breath and cough. She denies any chest pain or documented fever. Paramedics gave her Solu-Medrol 125 mg and route. She had a breathing treatment prior to transfer. Nursing Notes were reviewed. REVIEW OF SYSTEMS (2+ for4; 10+ for level 5) Review of Systems Constitutional: Negative for chills and fever. HENT: Negative for ear pain and sore throat. Eyes: Negative for pain and visual disturbance. Respiratory: Positive for cough and shortness of breath. Cardiovascular: Negative for chest pain and palpitations. Gastrointestinal: Negative for abdominal pain and vomiting. Genitourinary: Negative for dysuria and hematuria. Musculoskeletal: Negative for arthralgias and back pain. Skin: Negative for color change and rash. Neurological: Negative for seizures and syncope. All other systems reviewed and are negative. PAST MEDICAL HISTORY Medical History[1] SURGICALHISTORY Surgical History[2] CURRENT MEDICATIONS Current Discharge Medication List CONTINUE these medications which have NOT CHANGED Details albuterol (2.5 MG/3ML) 0.083% nebulizer solution Take 3 mL (2.5 mg) by nebulization 2 times daily. Associated Diagnoses: Pulmonary emphysema, unspecified emphysema type (HCC); Chronic obstructive pulmonary disease, unspecified COPD type (HCC) albuterol 108 (90 Base) MCG/ACT inhaler Inhale 2 puffs every 4 hours as needed. aspirin 81 MG EC tablet Take 81 mg by mouth. buPROPion XL (Wellbutrin XL) 150 MG 24 hr tablet Take 150 mg by mouth in the morning. busPIRone (Buspar) 15 MG tablet Take 1 tablet (15 mg) by mouth 2 times daily. Qty: 60 tablet, Refills: 0 calcium carbonate-cholecalciferol (Oyster Shell) 250-3.125 MG-MCG tablet Take 1 tablet by mouth. Diclofenac Sodium (Voltaren) 1 % gel Apply 4 g topically 2 times daily. fluticasone (Flonase) 50 MCG/ACT nasal spray 2 sprays in the morning. Fluticasone Furoate-Vilanterol (Breo Ellipta) 200-25 MCG/ACT aerosol powder Inhale 1 puff daily. Fluticasone-Salmeterol 250-50 MCG/ACT aerosol powder Inhale 250 mcg daily. 30 DAY SUPPLY folic acid (Folvite) 1 MG tablet Take 1 tablet (1 mg) by mouth daily. guaiFENesin (Mucinex) 600 MG 12 hr tablet Take 2 tablets (1,200 mg) by mouth 2 times daily as needed for cough or congestion for up to 28 doses. Do not crush, chew, or split. Qty: 56 tablet, Refills: 0 Associated Diagnoses: Chronic obstructive pulmonary disease with acute lower respiratory infection (HCC) hydrOXYzine pamoate (Vistaril) 25 MG capsule Take 25 mg by mouth. magnesium oxide (Mag-Ox) 400 mg tablet 400 mg daily. melatonin 3 MG tablet Take 1 tablet (3 mg) by mouth Nightly. mirtazapine (Remeron) 15 MG tablet Take 1 tablet (15 mg) by mouth Nightly. Qty: 30 tablet, Refills: 0 montelukast (Singulair) 10 MG tablet Take 10 mg by mouth Nightly. PARoxetine (Paxil) 30 MG tablet Take 1 tablet (30 mg) by mouth every morning. Qty: 30 tablet, Refills: 11 QUEtiapine (SEROquel) 50 MG tablet Take 1 tablet (50 mg) by mouth Nightly as needed (Anxiety and Sleep). tiotropium (Spiriva Respimat) 2.5 MCG/ACT inhaler Inhale 2 puffs in the morning. Zinc 50 MG capsule Take 50 mg by mouth. Pollen extract FAMILY HISTORY Family History[3] SOCIAL HISTORY Social History[4] SCREENINGS PHYSICAL EXAM (5+ for level 4, 8+ for level 5) @EDTRIAGEVSS@ Physical Exam Vitals and nursing note reviewed. Constitutional: General: She is not in acute distress. Appearance: She is well-developed. She is ill-appearing. HENT: Head: Normocephalic and atraumatic. Eyes: Conjunctiva/sclera: Conjunctivae normal. Cardiovascular: Rate and Rhythm: Regular rhythm. Tachycardia present. Heart sounds: No murmur heard. Pulmonary: Effort: Pulmonary effort is normal. Tachypnea present. No respiratory distress. Breath sounds: Examination of the right-upper field reveals decreased breath sounds. Examination of the left-upper field reveals decreased breath sounds. Examination of the right-middle field reveals decreased breath sounds. Examination of the left-middle field reveals decreased breath sounds. Examination of the right-lower field reveals decreased breath sounds. Examination of the left-lower field reveals decreased breath sounds. Decreased breath sounds present. Chest: Chest wall: No tenderness. Musculoskeletal: General: No swelling. Cervical back: Neck supple. Skin: General: Skin is warm and dry. Neurological: Mental Status: She is alert and oriented to person, place, and time. Psychiatric: Mood and Affect: Mood normal. Behavior: Behavior normal. DIAGNOSTIC RESULTS EKG (Per Emergency Physician): RADIOLOGY (Per EmergencyPhysician): Interpretation per the Radiologist below, if available at the time of this note: @EDRISRSLT@ : Labs Reviewed CBC WITH AUTO DIFFERENTIAL - Abnormal Result Value Auto WBC 13.7 (*) RBC 3.99 Hemoglobin 11.5 (*) Hematocrit 38.5 MCV 96.5 MCH 28.8 MCHC 29.9 (*) RDW 13.9 Platelets 168 MPV 9.9 COMPREHENSIVE METABOLIC PANEL - Abnormal SODIUM 141 POTASSIUM 4.4 CHLORIDE 101 CARBON DIOXIDE 33 (*) ANION GAP 7 UREA NITROGEN 16 CREATININE 0.53 (*) GLUCOSE 138 (*) CALCIUM 8.9 AST (SGOT) 33 ALT 39 (*) ALKALINE PHOSPHATASE 154 (*) ALBUMIN 3.3 BILIRUBIN, TOTAL 0.4 TOTAL PROTEIN 7.1 eGFR >90.0 BLOOD GAS, VENOUS - Abnormal pH, Venous 7.287 (*) pCO2, Venous 74.5 (*) pO2, Venous 51.2 HCO3, Venous 34.8 (*) O2 Sat, Venous 82.4 Base Excess, Venous 5.5 (*) Hgb, blood gas 13.8 TCO2, Venous 37.1 (*) Source Of Oxygen Nasal Cannula (LPM) Amount Of Oxygen 3 Narrative: Assessment of oxygenation is best done with an arterial blood gas determination. Reference ranges for pO2, bicarbonate, and base excess are for mixed venous blood. Specimens drawn from a peripheral vein will often have higher values. MANUAL DIFFERENTIAL (CELLAVISION) - Abnormal RBC Morphology abnormal Poikilocytes Moderate (*) Polychromasia Slight (*) Basophilic Stippling Slight (*) Ovalocytes Slight (*) Stomatocytes Marked (*) Neutrophils % 88 (*) Lymphocytes % 3 (*) Monocytes % 5 Eosinophils % 3 Basophils % 1 Absolute Neutrophil Count 12.1 (*) Lymphocytes Absolute 0.4 (*) Monocytes Absolute 0.7 Eosinophils Absolute 0.4 Basophils Absolute 0.1 Neutrophils Manual 88 Lymphocytes Manual 3 Monocytes Manual 5 Eosinophils Manual 3 (*) Basophils Manual 1 Bands Manual Metamyelocytes Manual Myelocytes Manual Promyelocytes Manual Blasts Manual Atypical Lymphocytes Manual Unclassified Cells, Manual BLOOD GAS, VENOUS - Abnormal pH, Venous 7.193 (*) pCO2, Venous 88.4 (*) pO2, Venous 60.9 HCO3, Venous 33.2 (*) O2 Sat, Venous 85.8 Base Excess, Venous 2.6 Hgb, blood gas 12.3 TCO2, Venous 35.9 (*) Source Of Oxygen BiPAP Amount Of Oxygen 60% Narrative: Assessment of oxygenation is best done with an arterial blood gas determination. Reference ranges for pO2, bicarbonate, and base excess are for mixed venous blood. Specimens drawn from a peripheral vein will often have higher values. SALICYLATE - Abnormal SALICYLATES <5.0 (*) ACETAMINOPHEN LEVEL - Abnormal ACETAMINOPHEN <5.0 (*) Narrative: Acetaminophen concentrations greater than 150 ug/mL at 4 hours after ingestion and greater than 40 ug/mL at 12 hours after ingestion are often associated with toxicity. BLOOD GAS, VENOUS - Abnormal pH, Venous 7.209 (*) pCO2, Venous 88.2 (*) pO2, Venous 30.0 HCO3, Venous 34.4 (*) O2 Sat, Venous 50.1 Base Excess, Venous 4.0 (*) Hgb, blood gas 12.1 TCO2, Venous 37.1 (*) Source Of Oxygen Non-Invasive Ventilator Amount Of Oxygen 60 Narrative: Assessment of oxygenation is best done with an arterial blood gas determination. Reference ranges for pO2, bicarbonate, and base excess are for mixed venous blood. Specimens drawn from a peripheral vein will often have higher values. PROCALCITONIN TEST - Abnormal PROCALCITONIN 0.21 (*) Narrative: PCT <0.50 = Low risk of severe sepsis and/or septic shock. PCT >2.00 = High risk of severe sepsis and/or septic shock. BLOOD CULTURE - Normal Blood Culture Blood culture incubation started Narrative: Blood Collection Site: Right Arm BLOOD CULTURE - Normal Blood Culture Blood culture incubation started Narrative: Blood Collection Site: Left Arm SARS-COV-2, FLU A/B, AND RSV COMBO - Normal SARS-CoV-2 Not Detected Respiratory Syncytial Virus Not Detected Influenza A Not Detected Influenza B Not Detected Narrative: Methodology: real-time, RT-PCR The SARS-CoV-2, Flu A/B, and RSV Combo assay is intended for in vitro diagnostic use under the FDA Emergency Use Authorization (EUA). This test has not been FDA cleared or approved. In compliance with this authorization, please visit www.fda.gov/media/065738/downloa d or www.fda.gov/media/381838/downloa d to access the applicable information sheets. HIGH SENSITIVITY TROPONIN, SERIAL BASELINE - Normal Troponin HS Serial Baseline 13 NT PRO BNP - Normal NT PRO BNP 181 Narrative: In patients with suspected acute HF, NT-proBNP age-related cut-points are 450, 900, and 1800 pg/mL for ages <50, 50-75, and >75 years respectively. NT-proBNP concentration <300 pg/mL provides a very high NPV for HF in an acute setting, independent of age. In a non-acute setting, heart failure is unlikely with a NT-proBNP concentration <125 pg/mL while a value >600 pg/mL is likely due to heart failure. Patients with levels in the lovelace zone (between rule-out and rule-in levels) need extra physician attention and ancillary testing. For the unusual patient aged <50 years with severe CKD, a cut point of 1,200 ng/L for NT-proBNP would be indicated. Testing is performed on a new assay on a new instrument and values may not correlate well with previous values. LACTIC ACID WITH REFLEX - Normal LACTIC ACID 0.8 HIGH SENSITIVITY TROPONIN, SERIAL, SECOND TEST - Normal 2h Troponin HS (Serial 2nd Troponin) 9 ETHANOL - Normal ETHANOL IN SER/PLAS <10 Narrative: LOOM SETTER FOURDRINIER depression is seen >100 mg/dL. NOTE: This result is for medical treatment only. Analysis performed using non-forensic procedures. HIGH SENSITIVITY TROPONIN, SERIAL, THIRD TEST - Normal 4h Troponin HS (Serial 3rd Troponin) 8 RESPIRATORY PATHOGENS PANEL BY PCR MRSA BY PCR LEGIONELLA AND STREPTOCOCCUS URINE ANTIGEN, ORDERABLE Narrative: The following orders were created for panel order Legionella and Streptococcus Urine Antigen. Procedure Abnormality Status --------- ------ Legionella and Streptoco...[[id number]] In process Urine Hold Cup[[id number]] Final result Please view results for these tests on the individual orders. LEGIONELLA AND STREPTOCOCCUS URINE ANTIGEN URINE HOLD CUP Extra Tube Hold for add-ons. ETHYL GLUCURONIDE SCREEN, URINE All other labs were within normal range or not returned as of this dictation. EMERGENCY DEPARTMENT COURSE and DIFFERENTIALDIAGNOSIS/MDM: Vitals: Vitals: 01/12/25 1135 01/12/25 1215 01/12/25 1314 01/12/25 1402 BP: 118/73 126/86 108/75 Pulse: (!) 102 99 97 92 Resp: 20 17 Temp: 36.1 C (97 F) TempSrc: Oral SpO2: 95% 99% 100% 98% Weight: Medications aspirin EC tablet 81 mg (81 mg Oral Given 01/12/251609) buPROPion XL (Wellbutrin XL) 24 hr tablet 150 mg (has no administration in time range) busPIRone (Buspar) tablet 15 mg (15 mg Oral Given 01/12/251609) folic acid (Folvite) tablet 1 mg (1 mg Oral Given 01/12/251609) guaiFENesin (Mucinex) 12 hr tablet 1,200 mg (has no administration in time range) melatonin tablet 3 mg (has no administration in time range) mirtazapine (Remeron) tablet 15 mg (has no administration in time range) montelukast (Singulair) tablet 10 mg (has no administration in time range) PARoxetine (Paxil) tablet 30 mg (30 mg Oral Given 01/12/251609) QUEtiapine (SEROquel) tablet 50 mg (has no administration in time range) mupirocin (Bactroban) 2 % ointment 1 Application (1 Application Nasal Given 01/12/251609) naloxone (Narcan) injection 0.4 mg (has no administration in time range) ondansetron ODT (Zofran-ODT) disintegrating tablet 4 mg (has no administration in time range) Or ondansetron (Zofran) injection 4 mg (has no administration in time range) influenza vaccine A&B surf ant adjuvanted (Fluad) HIGH-DOSE injection 0.5 mL (has no administration in time range) enoxaparin (Lovenox) syringe 40 mg (40 mg SubCUTAneous Given 01/12/25 1610) ipratropium-albuterol (Duo-Neb) 0.5-2.5 mg/3 mL nebulizer solution 3 mL (3 mL Nebulization Given 01/12/25 1400) albuterol (2.5 MG/3ML) 0.083% nebulizer solution 2.5 mg (has no administration in time range) pantoprazole (ProtoNix) EC tablet 40 mg (40 mg Oral Given 01/12/25 1610) cefepime (Maxipime) 2,000 mg in sodium chloride 0.9 % 50 mL IVPB Mini-Bag Plus (2,000 mg IntraVENous New Bag 01/12/25 1359) sodium chloride 0.9 % bolus 1,000 mL (0 mL IntraVENous Stopped 01/12/25 1049) ipratropium-albuterol (Duo-Neb) 0.5-2.5 mg/3 mL nebulizer solution 3 mL (3 mL Nebulization Given 01/12/25 0947) oxyCODONE (Roxicodone) immediate release tablet 15 mg (15 mg Oral Given 01/12/25 1108) LORazepam (Ativan) injection 0.5 mg (0.5 mg IntraVENous Given 01/12/25 1129) Medical Decision Making Problems Addressed: COPD exacerbation (HCC): complicated acute illness or injury Hypoxia: complicated acute illness or injury Respiratory acidosis: complicated acute illness or injury Tachycardia: complicated acute illness or injury Amount and/or Complexity of Data Reviewed Labs: ordered. Radiology: ordered. ECG/medicine tests: ordered. Risk Prescription drug management. Decision regarding hospitalization. Patient presents to the emergency department by way of local fire rescue squad from a half-way facility where she resides. She has a history of COPD and has been having increasing productive cough and shortness of breath. The paramedics gave her Solu-Medrol 125 mg and route. She states she had a breathing treatment prior to transfer. She denies any chest pain. She denies any fever. She denies any peripheral edema. Differential diagnosis includes COPD exacerbation, COVID, viral illness, pneumonia Chronic conditions impacting care: COPD, severe malnutrition, anxiety and depression, chronic pain, malignant neoplasm of exocervix, CVA Social determinants affecting health: Reformed smoker. She currently resides in a half-way facility. ED diagnostics interpreted by me included serial troponins, CBC, BNP, CMP, lactate, blood cultures, and VBG. EKG per my review showed the patient to be in a sinus tachycardic rhythm at 110 bpm with no evidence of changes from 07/30/2024. EKG details will be dictated into Epiphany by the ED physician. Chest x-ray, per radiologist review, shows no acute findings. ED medications included IV hydration with 1 L normal saline. She was given a DuoNeb aerosol treatment and maintained on supplemental oxygen. She was given IV Ativan. External medical records reviewed included a telemedicine visit with Brandi Vora, nurse practitioner, on 12/28/2024. Patient was subsequently put on NIV secondary to hypoxia and respiratory acidosis. I then did discuss this case with Dr. Lynn from the intensive care unit who arrived in the ER for final disposition and patient will be placed in the intensive care unit on his service. Total critical care time was 35 minutes excluding separately reportable procedures. There was a high probability of clinically significant/life-threatening deterioration in the patient's condition which required my urgent intervention. CONSULTS: IP CONSULT TO PALLIATIVE CARE IP CONSULT TO WOUND PREVENTION PROCEDURES: Unless otherwise noted below, none Procedures Patients symptoms are consistent with sepsis, severe sepsis, or septic shock (If yes use ".sepsiscoremeasure"): No FINAL IMPRESSION 1. COPD exacerbation (HCC) 2. Respiratory acidosis 3. Hypoxia 4. Tachycardia DISPOSITION/PLAN DISPOSITION Admit 01/12/2025 12:16:28 PM PATIENT REFERRED TO: No follow-up provider specified. DISCHARGE MEDICATIONS: Current Discharge Medication List @[facility]([id number]:LAST:1)@ (Please note: Portions of this note were completed with a voice recognition program. Efforts were made to edit thedictations but occasionally words and phrases are mis-transcribed.) Form [id number] Amelie Soliz PA-C (electronically signed) Emergency Medicine Provider [1] Past Medical History: Diagnosis Date Abnormal stress test Acute exacerbation of chronic obstructive pulmonary disease (HCC) 04/12/2018 Allergic rhinitis 1957 Arthritis Asthma (HHS/HCC) Bronchitis Cancer (HCC) skin Cervical cancer (HCC) Chest pain COPD (chronic obstructive pulmonary disease) (HCC) USE OXYGEN 3 L AT NIGHT DDD (degenerative disc disease), cervical Defect, retina, with detachment right DJD (degenerative joint disease), lumbar Emphysema lung (HCC) Former smoker Hematuria SCHEDULED FOR THE PROCEDURE /SURGERY ON 02/11/2017 Hypokalemia Lung nodules Near syncope 09/19/2023 Osteoporosis Palpitations Pneumonia [id number] Recurrent major depression Sciatica Thoracic compression fracture (HCC) Vitamin D deficiency [2] Past Surgical History: Procedure Laterality Date CYSTOSCOPY 01/12/2017 OFFICE PROCEDURE CYSTOSCOPY 02/11/2017 C&P bladder biopsy EYE SURGERY detached retina 1994 HYSTERECTOMY 11/06/2019 ABDOMINAL RADICAL HYSTERECTOMY WITH BSO AND PELVIC LYMPH; DR[facility] ZIYAD MENENDEZ [facility] OTHER SURGICAL HISTORY Left 12/19/2019 Med Port POWER Regular Size OTHER SURGICAL HISTORY Left 11/07/2022 Percutaneous skeltal fixation femoral fracture TUBAL LIGATION 1992 [3] Family History Problem Relation Name Age of Onset Colon cancer Neg Hx Ovarian cancer Neg Hx Cancer Mother breast- to liver Cancer Sister breast Cancer Father lung to brain No Known Problems Brother Uterine cancer Neg Hx [4] Social History Socioeconomic History Marital status: Tobacco Use Smoking status: Former Current packs/day: 0.00 Average packs/day: 1.5 packs/day for 39.5 years (59.3 ttl pk-yrs) Types: Cigarettes Start date: 1972 Quit date: 09/20/2011 Years since quittin.3 Passive exposure: Past Smokeless tobacco: Never Tobacco comments: Quit smoking: pt states she quit 4-5 years ago Vaping Use Vaping status: Every Day Substances: Nicotine Devices: Refillable tank Substance and Sexual Activity Alcohol use: Not Currently Comment: Approx once a year Drug use: Never Sexual activity: Not Currently Partners: Male control/protection: Post-menopausal Social Drivers of Health Financial Resource Strain: [...] Transportation Needs (06/06/2024) Received from [facility] PRAPARE - Transportation Lack of Transportation (Medical): Yes Lack of Transportation (Non-Medical): No Physical Activity: Insufficiently Active (07/31/2024) Exercise Vital Sign Days of Exercise per Week: 3 days Minutes of Exercise per Session: 20 min Stress: No Stress Concern Present (07/31/2024) [employer] [place] [employer] - Occupational Stress Questionnaire Feeling of Stress : Only a little Recent Concern: Stress - Stress Concern Present (06/06/2024) Received from [facility] [place] [facility] [employer] [facility] - Occupational Stress Questionnaire Feeling of Stress : To some extent Social Connections: Socially Isolated (07/31/2024) Social Connection and Isolation Panel [NHANES] Frequency of Communication with Friends and Family: Three times a week Frequency of Social Gatherings with Friends and Family: Three times a week Attends Voodoo Services: Never Active Member of Clubs or Organizations: No Attends Club or Organization Meetings: Never Marital Status: Intimate Partner Violence: Not At Risk (01/12/2025) Humiliation, Afraid, Rape, and Kick questionnaire Fear of Current or Ex-Partner: No Emotionally Abused: No Physically Abused: No Sexually Abused: No Housing Stability: Low Risk (01/12/2025) Housing Stability Vital Sign Unable to Pay for Housing in the Last Year: No Number of Times Moved in the Last Year: 0 Homeless in the Last Year: No Amelie Soliz PA-C 01/12/25 1711 Cosigned by Freddy Linder MD at 01/13/2025 2:29 PM EDT [facility] 12-28-2024 Telephone encounter Note Had tele visit today with Gonzalo. As discussed with patient, I ordered CT chest 3 month follow up for new nodules measuring up to 7 mm. Also ordered PFTs, she request this test be ordered late morning or early afternoon. Could we please get both test scheduled and let her know. ~ thank you [facility] 12-28-2024 Miscellaneous Notes Had tele visit today with Gonzalo. As discussed with patient, I ordered CT chest 3 month follow up for new nodules measuring up to 7 mm. Also ordered PFTs, she request this test be ordered late morning or early afternoon. Could we please get both test scheduled and let her know. ~ thank you documented in this encounter [facility] 12-28-2024 History of Presen t illness Narrative Images from the original note were not included. [facility] [address] [place] [address] Date of Service: 12/28/2024 Visit type: An Established patient Chief Complaint/Reason for Referral: No chief complaint on file. SUBJECTIVE History of Present Illness: Gonzalo Deluca ( 1955) is a 69 y.o. female patient, with significant PMH of COPD, emphysema, chronic respiratory failure 3L, pulmonary nodule, sciatica, and tobacco use being seen for pulmonary follow up Spoke with Gonzalo on the phone today, unable to connect via audio. Gonzalo reports she is doing so much better. Currently staying at [facility] for rehabilitation. Ready to go home but may be transitioning to assisted living. Ambulating independently has improved with dyspnea at baseline. Using Breo and Spiriva as directed daily. Albuterol once or twice a day. Wears 3 L supplemental oxygen continuously during the day. Has gained weight, up to 105 LBS. Last time in office was 93 pounds. Follows along with palliative care for her dyspnea taking oxycodone as it has been beneficial. Had to cancel recent [facility] Like us to get that rescheduled requesting for late morning or early afternoon appointment. Occasional congestion with coughing and wheezing one in a while. Overall feeling better. Denies recent exacerbations, fever, chills, chest tightness, palpitations, or pedal edema. Pneumonia vaccine: Seasonal Flu vaccine: COVID-19 vaccine: [...] date: 1971 Quit date: 09/20/2011 Years since quittin.2 Passive exposure: Past Smokeless tobacco: Never Tobacco [...] for palpitations and leg swelling. VITAL SIGNS: There were no vitals taken for this visit. PHYSICAL EXAM: Physical Exam Constitutional: General: She [...] compared to the prior exam. CT Chest 11/20/2024 COMPARISON: Chest CT from 07/31/2024 FINDINGS: LUNGS [...] (series 6 image 204). This is likely inflammatory/infectious in nature. New 3 mm right upper [...] to Fleischner criteria. 5. Mild mediastinal lymphadenopathy. TTE--09/20/2023 Left Ventricle: Left ventricle size is [...] significant valvular abnormalities. ASSESSMENT and PLAN 1. Acute on chronic respiratory failure with hypoxia (HCC) - acute respiratory failure clinically resolved - continue supplemental oxygen, baseline 3L NC. Maintain SpO2 88-92% 3. Centrilobular emphysema (HCC) - CT chest does show advanced emphysema changes - PFT from 2016, FEV1/FVC reduced, FEV1 1.45, 50% predicted. No bronchodilator response. Severe obstructive ventilatory defect with evidence of gas trapping, no evidence of hyperinflation or bronchodilator response. - obtaining new PFT will be beneficial to determine severity of disease. - complete PFT pre and post bronchodilator with FENO; Future - continue Breo ellipta, Spiriva inhalers twice daily - albuterol nebulizer/inhler as needed for symptom relief every 4-6 hours 4. Aspiration pneumonia of left lower lobe, unspecified aspiration pneumonia type (HCC) - clinically improving - Patient reports around the time of CT scan early November, was treated for pneumonia. Has clinically since then improved. Was treated in house at [facility] with antibiotics - CT chest 11/20/2024 shows interval resolution of previously visualized left lower lobe pneumonia - new mild focal consolidation in RUL, refecting pneumonia 5. Pulmonary nodules CT chest 11/20/2024 shows 7 mm left upper lobe pulmonary nodule, which has been stable over 12 months. Few new pulmonary nodules measuring up to 7 mm. Recommend follow-up according to Fleischner's criteria - - follow up CT chest 3 months 6. History of tobacco abuse - continues to remains tobacco free, is vaping a couple times a day - advised vaping can only exacerbate their condition and potentially lead to further complications. - declines NRT at this time 6. Severe malnutrition (CMS/HCC) (HCC) - clinically improving - has gained 12 lbs, up to 105lbs and feels better - pulmonary cachexia; palliative following and treating dyspnea with benefits - eating what chemical machine tender has recommended while at half-way facility FOLLOW UP: No follow-ups on file. Portions of the information within this encounter [...] disease (HCC) 04/12/2018 Allergic rhinitis Arthritis Asthma (HHS/HCC) Bronchitis Cancer (HCC) skin Cervical cancer (HCC) Chest pain COPD (chronic obstructive pulmonary disease) (HCC) USE OXYGEN 3 L AT NIGHT DDD (degenerative disc disease), cervical Defect, retina, with detachment right DJD (degenerative joint disease), lumbar Emphysema lung (HCC) Former smoker Hematuria SCHEDULED FOR THE PROCEDURE /SURGERY ON 02/11/2017 Hypokalemia Lung nodules Near syncope 09/19/2023 Osteoporosis Palpitations Pneumonia Recurrent major depression Sciatica Thoracic compression fracture (HCC) Vitamin D [...] mg) by mouth daily., Disp: , Rfl: guaiFENesin (Mucinex) 600 MG 12 hr tablet, Take 2 tablets (1,200 mg) by mouth 2 times daily as needed for cough or congestion for up to 28 doses. Do not crush, chew, or split., Disp: 56 tablet, Rfl: 0 hydrOXYzine pamoate (Vistaril) 25 MG capsule, Take 25 mg by mouth., Disp: , Rfl: magnesium oxide (Mag-Ox) 400 mg tablet, 400 mg daily., Disp: , Rfl: melatonin 3 MG tablet, Take 1 tablet (3 mg) by mouth Nightly., Disp: , Rfl: mirtazapine (Remeron) 15 MG tablet, Take 1 tablet (15 mg) by mouth Nightly., Disp: 30 tablet, Rfl: 0 montelukast (Singulair) 10 MG tablet, Take 10 mg by mouth Nightly., Disp: , Rfl: PARoxetine (Paxil) 30 MG tablet, Take 1 [...] 50 mg by mouth., Disp: , Rfl: [5] Family History Problem Relation Name Age of Onset Colon cancer Neg Hx Ovarian cancer Neg Hx Cancer Mother breast- to liver Cancer Sister breast Cancer Father lung to brain No Known Problems Brother Uterine cancer Neg Hx documented in this encounter [facility] 12-28-2024 History of Presen t illness Narrative Images from the original note were not included. Patient was identified and seen today via Telehealth by agreement and consent. I used the following Telehealth technology: Audio capability only. Total length of call 22 minutes. The patient was offered and advised video for a more comprehensive evaluation, but the patient declined or was unable to use video. Patient location: [place] Patient Location: Nursing facility. This patient encounter is appropriate and reasonable under the circumstances: transportation issues . The patient has been advised of the potential risks and limitations of this mode of treatment (including but not limited to the absence of in-person examination) and has agreed to be treated in a remote fashion in spite of them. Any and all of the patient's/patient's family's questions on this issue have been answered and I have made no promises or guarantees to the patient. The patient has also been advised to contact this office for worsening conditions or problems, and seek emergency medical treatment and/or call 911 if the patient deems either necessary. The patient stated that they are currently in the state of [place]. If the patient is a minor, permission has been obtained by the parent or guardian for the patient to receive medical care at this visit. [facility] Pulmonary Medicine [address] [place] [address] Date of Service: 12/28/2024 Visit type: An Established patient Chief Complaint/Reason for Referral: No chief complaint on file. SUBJECTIVE History of Present Illness: Gonzalo Deluca ( 1955) is a 69 y.o. female patient, with significant PMH of COPD, emphysema, chronic respiratory failure 3L, pulmonary nodule, sciatica, and tobacco use being seen for pulmonary follow up Spoke with Gonzalo on the phone today, unable to connect via audio. Gonzalo reports she is doing so much better. Currently staying at [facility] for rehabilitation. Ready to go home but may be transitioning to assisted living. Ambulating independently has improved with dyspnea at baseline. Using Breo and Spiriva as directed daily. Albuterol once or twice a day. Wears 3 L supplemental oxygen continuously during the day. Has gained weight, up to 105 LBS. Last time in office was 93 pounds. Follows along with palliative care for her dyspnea taking oxycodone as it has been beneficial. Had to cancel recent pulmonary function test due to being at [facility] [place]. Like us to get that rescheduled requesting for late morning or early afternoon appointment. Occasional congestion with coughing and wheezing one in a while. Overall feeling better. Denies recent exacerbations, fever, chills, chest tightness, palpitations, or pedal edema. Pneumonia vaccine: Seasonal Flu vaccine: COVID-19 vaccine: [...] date: 1972 Quit date: 09/20/2011 Years since quittin.2 Passive exposure: Past Smokeless tobacco: Never Tobacco [...] for palpitations and leg swelling. VITAL SIGNS: There were no vitals taken for this visit. PHYSICAL EXAM: Physical Exam Constitutional: General: She [...] compared to the prior exam. CT Chest 11/20/2024 COMPARISON: Chest CT from 07/31/2024 FINDINGS: LUNGS [...] (series 6 image 204). This is likely inflammatory/infectious in nature. New 3 mm right upper [...] to Fleischner criteria. 5. Mild mediastinal lymphadenopathy. TTE--09/20/2023 Left Ventricle: Left ventricle size is [...] significant valvular abnormalities. ASSESSMENT and PLAN 1. Acute on chronic respiratory failure with hypoxia (HCC) - acute respiratory failure clinically resolved - continue supplemental oxygen, baseline 3L NC. Maintain SpO2 88-92% 3. Centrilobular emphysema (HCC) - CT chest does show advanced emphysema changes - PFT from 2016, FEV1/FVC reduced, FEV1 1.45, 50% predicted. No bronchodilator response. Severe obstructive ventilatory defect with evidence of gas trapping, no evidence of hyperinflation or bronchodilator response. - obtaining new PFT will be beneficial to determine severity of disease. - complete PFT pre and post bronchodilator with FENO; Future - continue Breo ellipta, Spiriva inhalers twice daily - albuterol nebulizer/inhler as needed for symptom relief every 4-6 hours 4. Aspiration pneumonia of left lower lobe, unspecified aspiration pneumonia type (HCC) - clinically improving - Patient reports around the time of CT scan early November, was treated for pneumonia. Has clinically since then improved. Was treated in house at [facility] with antibiotics - CT chest 11/20/2024 shows interval resolution of previously visualized left lower lobe pneumonia - new mild focal consolidation in RUL, refecting pneumonia 5. Pulmonary nodules CT chest 11/20/2024 shows 7 mm left upper lobe pulmonary nodule, which has been stable over 12 months. Few new pulmonary nodules measuring up to 7 mm. Recommend follow-up according to Fleischner's criteria - - follow up CT chest 3 months 6. History of tobacco abuse - continues to remains tobacco free, is vaping a couple times a day - advised vaping can only exacerbate their condition and potentially lead to further complications. - declines NRT at this time 6. Severe malnutrition (CMS/HCC) (HCC) - clinically improving - has gained 12 lbs, up to 105lbs and feels better - pulmonary cachexia; palliative following and treating dyspnea with benefits - eating what chemical machine tender has recommended while at half-way facility FOLLOW UP: No follow-ups on file. Portions of the information within this encounter [...] disease (HCC) 04/12/2018 Allergic rhinitis Arthritis Asthma (HHS/HCC) Bronchitis Cancer (HCC) skin Cervical cancer (HCC) Chest pain COPD (chronic obstructive pulmonary disease) (HCC) USE OXYGEN 3 L AT NIGHT DDD (degenerative disc disease), cervical Defect, retina, with detachment right DJD (degenerative joint disease), lumbar Emphysema lung (HCC) Former smoker Hematuria SCHEDULED FOR THE PROCEDURE /SURGERY ON 02/11/2017 Hypokalemia Lung nodules Near syncope 09/19/2023 Osteoporosis Palpitations Pneumonia Recurrent major depression Sciatica Thoracic compression fracture ([facility]) Vitamin D deficiency [2] Past Surgical History: Procedure Laterality Date CYSTOSCOPY 01/12/2017 OFFICE PROCEDURE CYSTOSCOPY 02/11/2017 C&P bladder biopsy EYE SURGERY detached retina 1994 HYSTERECTOMY 11/06/2019 ABDOMINAL RADICAL HYSTERECTOMY WITH BSO AND PELVIC LYMPH; DR. ZIYAD MENENDEZ [facility] OTHER SURGICAL HISTORY Left 12/19/2019 Med [...] mg) by mouth daily., Disp: , Rfl: guaiFENesin (Mucinex) 600 MG 12 hr tablet, Take 2 tablets (1,200 mg) by mouth 2 times daily as needed for cough or congestion for up to 28 doses. Do not crush, chew, or split., Disp: 56 tablet, Rfl: 0 hydrOXYzine pamoate (Vistaril) 25 MG capsule, Take 25 mg by mouth., Disp: , Rfl: magnesium oxide (Mag-Ox) 400 mg tablet, 400 mg daily., Disp: , Rfl: melatonin 3 MG tablet, Take 1 tablet (3 mg) by mouth Nightly., Disp: , Rfl: mirtazapine (Remeron) 15 MG tablet, Take 1 tablet (15 mg) by mouth Nightly., Disp: 30 tablet, Rfl: 0 montelukast (Singulair) 10 MG tablet, Take 10 mg by mouth Nightly., Disp: , Rfl: PARoxetine (Paxil) 30 MG tablet, Take 1 [...] 50 mg by mouth., Disp: , Rfl: [5] Family History Problem Relation Name Age of Onset Colon cancer Neg Hx Ovarian cancer Neg Hx Cancer Mother breast- to liver Cancer Sister breast Cancer Father lung to brain No Known Problems Brother Uterine cancer Neg Hx documented in this encounter [facility] 12-18-2024 Telephone encounter Note We have been unable to reach your patient to schedule their testing. Test Name: Complete PFT pre and post bronchodilator with FENO Patient canceled 10/24/24 and 12/04/24 [facility] 12-18-2024 Miscellaneous Notes We have been unable to reach your patient to schedule their testing. Test Name: Complete PFT pre and post bronchodilator with FENO Patient canceled 10/24/24 and 12/04/24 documented in this encounter [facility] 09-10-2024 Telephone encounter Note Prescription Refill Information [...] September 10, 2024 9:[address] [facility] 09-10-2024 Miscellaneous Notes Prescription Refill [...] AM documented in this encounter [facility] 09-07-2024 Telephone encounter Note Spoke to Nilesh from [facility] and scheduled patient for a follow up on 09/24@10am. Patient has not been seen for quite a while and also is requesting port removal to be scheduled. [facility] 09-07-2024 Miscellaneous Notes Spoke to Nilesh from [facility] and scheduled patient for a follow up on 09/24@10am. Patient has not been seen for quite a while and also is requesting port removal to be scheduled. Nilesh from [facility] states pt's port was flushed but there was no blood draw back. Patient requested for the port to be removed due to not being used for roughly 1 year. Please contact Nilesh with further questions at [phone] documented in this encounter [facility] 09-07-2024 Telephone encounter Note Nilesh from [facility] states pt's port was flushed but there was no blood draw back. Patient requested for the port to be removed due to not being used for roughly 1 year. Please contact Nilesh with further questions at [phone] [facility] 09-06-2024 History of Presen t illness Narrative [...] answered. documented in this encounter [facility] 09-03-2024 Telephone encounter Note Noted. Melva Juárez PA-C [facility] 09-03-2024 Miscellaneous Notes Noted. Melva Juárez PA-C Patient returned call and LVM. Called and spoke with patient Patient was admitted to hospital and recently discharged to a [facility], patient's daughter had submitted request in anticipation of discharge. [facility] is currently managing medications, no longer in [...] PM documented in this encounter [facility] 09-03-2024 Telephone encounter Note Patient returned call and LVM. Called and spoke with patient Patient was admitted to hospital and recently discharged to a [facility], patient's daughter had submitted request in anticipation of discharge. [facility] is currently managing medications, no longer in need Unsure of anticipated discharge, and if it will be to assisted living or back to home. Will plan to keep office aware. [facility] 08-29-2024 Telephone encounter Note Called patient, no answer at this time. Left voicemail to call the office back. [facility] 08-28-2024 Telephone encounter Note Patient had 30 pills filled on on 08/22. Is she following up with a different provider for prescriptions? [facility] 08-22-2024 Telephone encounter Note Prescription Refill Information [...] Weathers MA August 22, 2024 2:19 PM [facility] 08-20-2024 Telephone encounter Note Prescription Refill Information [...] August 20, 2024 11:[address] [facility] 08-20-2024 Miscellaneous Notes Prescription Refill [...] AM documented in this encounter [facility] 08-20-2024 History of Presen t illness Narrative Images from the original note were not included. [facility] Pulmonary Medicine [address] [place] [address] Date of Service: 08/20/2024 Visit type: An Established patient Chief Complaint/Reason for Referral: Hospital Follow-up (COPD,PSA/MSSA/STREP LRTI/ESTABLISH PULM OUTPATIENT...) SUBJECTIVE History of Present Illness: Gonzalo Deluca ( 1955) is a 68 y.o. female patient, with significant PMH of COPD, emphysema, chronic respiratory failure 3L, pulmonary nodule, sciatica, and tobacco use being seen for pulmonary hospital follow up Admitted [facility] 07/30/2024 - 08/08/2024 pulmonology was consulted for triple bacterial pneumonia, treated for pseudomona, moraxella and Streptoccus, on top of severe pneumonia, with increased oxygen requirements and chronic respiratory failure. Failure to thrive. Chronic resp failure with severe emphysema, 3L baseline O2. Treated with Dulera, Spiriva. Reports significant weight loss of 40 lbs over the past few months. Currently at [facility], half-way. Presents today with son, states breathing is better than before the hospital. Wearing 3L supplemental continuous oxygen today. SpO2 is 92%, does not appear distressed. Staying at [facility] for half-way and has been beneficial. Follows with palliative care for dyspnea, taking oxycodone and has been helping. Reports has gained some weight since breathing has improved and being at half-way facility. Expressed to keep up whatever it [...] prednisone taper. Wearing 3L O2 at baseline. USP currently 2. Acute on chronic respiratory failure with hypoxia (HCC) - continue supplemental oxygen, baseline 3L NC. Maintain SpO2 88-92% 3. Centrilobular emphysema ([facility]) - CT chest does show severe emphysema [...] left lower lobe, unspecified aspiration pneumonia type ([facility]) - CT chest with new wedge shaped [...] at this time 7. Severe malnutrition (CMS/HCC) ([facility]) - pulmonary cachexia; palliative following and treating dyspnea with benefits - trying to gain weight since breathing has improved - eating what chemical machine tender has recommended while at half-way facility FOLLOW UP: Follow up in about [...] major depression (HCC) Sciatica Thoracic compression fracture ([facility]) Vitamin D deficiency [2] Past Surgical History: Procedure Laterality Date CYSTOSCOPY 01/12/2017 OFFICE PROCEDURE CYSTOSCOPY 02/11/2017 C&P bladder biopsy EYE SURGERY detached retina 1994 HYSTERECTOMY 11/06/2019 ABDOMINAL RADICAL HYSTERECTOMY WITH BSO AND PELVIC LYMPH; DR[facility] ZIYAD MENENDEZ [facility] OTHER SURGICAL HISTORY Left 12/19/2019 Med [...] Hx documented in this encounter [facility] 08-20-2024 Instructions Rosalee Marvin - 08/20/2024 10:30 AM EDT YOUR APPOINTMENT TODAY WAS WITH THE [facility] LUNG NODULE CL[facility], COPD CLINIC, PULMONARY AND SLEEP MEDICINE OFFICE. PLEASE CALL OUR OFFICE AT [phone] for our [place] office location or [phone] for our [place] location, IF YOU HAVE NOT RECEIVED YOUR [...] to make improvements. COVID-19 VACCINATION INFORMATION: PH. [phone] [email or web address] [facility] Central Scheduling [phone] [facility] Sleep Scheduling [phone] documented in this encounter [facility] 08-14-2024 Telephone encounter Note Prescription Refill Information [...] August 14, 2024 10:[address] [facility] 08-14-2024 Miscellaneous Notes Prescription Refill [...] AM documented in this encounter [facility] 08-08-2024 Nurse Note Called report to [facility]. Pickup scheduled for 3:30pm. [facility] 08-08-2024 Nurse Note [facility] Pickup scheduled for 3:30pm. Wound Care consulted for Pressure Injury Prevention. Pt's Jeri score= 17 on 08/08 Pt's pressure points assessed. Pt stood independently for posterior assessment. Pt's Heels, Buttocks/coccyx, Back, Right elbow, Occiput and ears all intact. Cast in place to left upper extremity. Brent and healed area noted to coccyx. Brent and blanchable tissues noted to bilateral heels. [...] RN documented in this encounter [facility] 08-08-2024 History of Presen t illness Narrative Pt has been seen by palliative care during this hospital admission. Provider suggested referral to outside pall care provider at nursing facility [facility]. Referral sent to [facility], faxed to documented in this encounter [facility] 08-08-2024 Nurse Note Wound Care consulted for Pressure Injury Prevention. Pt's Jeri score= 17 on 08/08 Pt's pressure points assessed. Pt stood independently for posterior assessment. Pt's Heels, Buttocks/coccyx, Back, Right elbow, Occiput and ears all intact. Cast in place to left upper extremity. Brent and healed area noted to coccyx. Brent and blanchable tissues noted to bilateral heels. [...] any questions or concerns. Rosalina Cross RN [facility] 08-08-2024 Note Formatting of this n ote might be different from the original. Rounds this am DCP: [facility] Called to notify Karishma/dtr: [facility] has overturned the Denial and is approved to go to [facility] Transport arranged for 330pm. Tasked to SAW GRINDER to complete 7,000 Send AVS and Mar to facility Facility is updated RN and MD notified [facility] 08-08-2024 Note Formatting of this n ote might be different from the original. Rounds this am DCP: [facility] Called to notify Karishma/dtr: [facility] has overturned the Denial and is approved to go to [facility] Transport arranged for 330pm. Tasked to SAW GRINDER to complete 7,000 Send AVS and Mar to facility Facility is updated RN and MD notified [facility] 08-08-2024 Miscellaneous Notes Rounds this am DCP: [facility] Called to notify Karishma/dtr: [facility] has overturned the Denial and is approved to go to [facility] Transport arranged for 330pm. Tasked to SAW GRINDER to complete 7,000 Send AVS and Mar to facility Facility is updated RN and MD notified Patient Choice Patient Name: GONZALO DELUCA Date of : 1955 All Providers Sent Referral Name: [facility] Member Phone: [phone] Address: [address] [place] [address] Name: [facility] Phone: [phone] Address: [address] [place] [address] Name: Bobby Colvin [facility] Phone: [phone] Address: [address] [place] [address] Name: [facility] Phone: [phone] Address: [address] [place] [address] MAR, Discharge med list transmitted and 7000 in HENs to [facility] Bobby Colvin via [facility] per TCC request. Problem: Knowledge Deficit Goal: Patient/family/caregiver demonstrates understanding of disease process, treatment plan, medications, and discharge instructions 08/08/2024446 by Sadie Rodriguez RN Outcome: Not Progressing 08/08/2024315 by Sadie Rodriguez RN Outcome: Progressing Problem: Potential for Compromised Skin Integrity Goal: Skin Integrity is Maintained or Improved 08/08/20247 by Sadie Rodriguez RN Outcome: Not Progressing 08/08/2024315 by Sadie Rodriguez RN Outcome: Not Progressing Problem: Urinary Incontinence Goal: Perineal skin integrity is maintained or improved 08/08/20247 by Sadie Rodriguez RN Outcome: Not Progressing 08/08/2024315 by Sadie Rodriguez RN Outcome: Not Progressing Problem: Potential for Falls Goal: I will remain free of falls 08/08/2024446 by Sadie Rodriguez RN Outcome: Not Progressing 08/08/2024315 by Sadie Alhmeidi-Abueteen, RN Outcome: Progressing Problem: Discharge Barriers Goal: My discharge needs are met 08/08/2024 0447 by Sadie Rodriguez RN Outcome: Not Progressing 08/08/2024 0316 by Sadie Rodirguez RN Outcome: Not Progressing Problem: Problem Interventions [...] -Notified Dr. Beverly -Updated clinicals faxed to [phone] -If the appeal process is upheld, pt will have to go home with [facility]. -membership manager to follow and assist as needed. [...] denying SNF. Pt asked to go to [place]. She is in the process of trying to get to [facility] through her waiver services. She started [...] Appeals number given to pt to call: [phone]. Appeals fax number: [phone]. Pt was calling as this CM was walking out of her room. membership manager to follow and assist as needed. Spoke with patients daughter Karishma, regarding dc plans, who states that they would like to ideally get patient into half-way and then get patient over to [facility] under Medicaid. This will require an insurance appeal for the half-way facility. Shared this discussion with the TCC [...] submit an appeal. The appeal number for [facility] is [phone] and fast appeal fax [phone] is not open on the weekend and this will need to be initiated on Tuesday. Discussed with patient and she wanted to discuss with her daughter prior to deciding to pursue appeal or discharge home with [facility]. She did state that her daughter [...] discharge needs are met Outcome: Progressing Called [facility] and spoke with Xiao and insurance is requesting peer to peer to be completed by 08/06 at 12 noon central standard time. Number for peer to peer is [phone] option 5. Will need members name, and [...] Goal: Promote nutritional intake Outcome: Progressing Tasked [facility] field nurse case manager to follow for pending auth to [facility]. 7000 will need to be completed at the time of discharge. membership manager to follow and assist as needed. Sent updated notes to [facility] via [facility] per [facility] request. Await review and response regarding ability to accept. TCC notified. Care Management Progress Note -Discharge plan is [facility] -Tasked [facility] city supervisor to start auth. -Tasked [facility] to send updated clinical notes to facility. -membership manager to follow for auth approval and [...] are met Outcome: Progressing Referral placed to [facility] via [facility]port per TCC request. Await review and response regarding ability to accept. TCC notified. Care Management Progress Note -Spoke with pt at bedside for SNF choices. -Pt would like referrals sent to [facility], [facility], [facility], and [facility]. -Tasked [facility] to send those referrals. -Will speak with pt again once facility responses are in for facility of choice. -membership manager to follow and assist as needed. Length of Stay (Days): 1 GMLOS: No GMLOS Documented -Spoke with pt and she has chosen [facility] as FOC. Informed facility. ADOD is [address] Bishop. Anticipate starting auth tomorrow. membership manager to follow and assist as needed. [...] case she decides before then on choices. -membership manager to follow and assist as needed. [...] My discharge needs are met Outcome: Progressing Art Critic following case for Discharge Needs. Images from the original note were not included. [facility] Palliative Care Transitions of Care Note Gonzalo Starksyahir : 1955 ADMIT DATE: 07/30/2024 DISCHARGE DATE: TBD PRIMARY CARE PHYSICIAN: HERMINIA CASE MD CODE STATUS: DNR-CCA DISCHARGE DIAGNOSES: Principal Problem: Adult failure to thrive HOSPITAL COURSE: Goals of care Gonzalo Ferris Maria Ebenji retains capacity for medical decision-making -legal surrogate [...] short of breath when trying to eat. -Computer Help Desk Representative would be helpful. -BMI 15.28 -Albumin-->3.0 -Monitor. [...] [facility]illed [facility]hab Facility FACILITY/HOME CARE AGENCY NAME: [facility] Follow up with [facility] on office to call patient. [...] read documented in this encounter [facility] 08-08-2024 Note Formatting of this n ote might be different from the original. Patient Choice Patient Name: GONZALO DELUCA Date of : 1955 All Providers Sent Referral Name: Vinicius AMAYA Member Phone: [phone] Address: [address] [place] [address] Name: [facility] Phone: [phone] Address: [address] [place] [address] [facility] Phone: [phone] Address: [address] [place] [address] Name: [facility] Phone: [phone] Address: [address] [place] [address] [facility] 08-08-2024 Note Formatting of this n ote might be different from the original. Patient Choice Patient Name: GONZALO DELUCA Date of : 1955 All Providers Sent Referral Name: Vinicius [facility] Member Phone: [phone] Address: [address] [place] [address] Name: [facility] Phone: [phone] Address: [address] [place] [address] [facility] Phone: [phone] Address: [address] [place] [address] Name: [facility] Phone: [phone] Address: [address] [place], [place] [address] [facility] 08-08-2024 Note Formatting of this n ote might be different from the original. MAR, Discharge med list transmitted and 7000 in HENs to [facility] via [facility] per TCC request. [facility] 08-08-2024 Note Formatting of this n ote might be different from the original. MAR, Discharge med list transmitted and 7000 in HENs to [facility] via [facility] per TCC request. [facility] 08-08-2024 Note [facility] 08-08-2024 Hospital course Narrative Images from the original note were not included. Hospitalist Discharge Summary Gonzalo Barrington Deluca : 1955 Admit date: 07/30/2024 Discharge [...] status. Recent healthcare interactions include consultations with [facility], palliative care, pulmonology, orthopedic surgery, geriatrics, [...] respiratory failure and severe emphysema. Plan: - COSMETICS AND TOILETRIES SALESPERSON evaluation: recommended regular solids with thin liquids, [...] Plus 07/31/24 1030 07/31/24 1031 Supplement:HS Snack; [place] Ensure Plus Until discontinued Question Answer Comment Frequency HS Snack Select supplement: [place] Ensure Plus 07/31/24 1030 07/30/24 2313 Adult [...] Chronically ill apperances, LABS: Recent Labs 08/06/24 01108/07/248 08/08/24 0108 NA 141 141 141 K [...] Medications These medications were sent to [facility]/pharmacy #[id number] [facility] [address] [facility] [address] [facility] [address] PARoxetine 30 MG tablet You can get these medications from any pharmacy Bring a paper prescription for each of these medications morphine 15 MG tablet Information about where to get these medications is not yet available Ask your nurse or doctor about these medications albuterol (2.5 MG/3ML) 0.083% nebulizer solution folic acid 1 MG tablet QUEtiapine 50 MG tablet Recommended Follow-up: [facility] [address] [facility] [address] [facility] [address] Follow up Cognitive Evaluation Betsey Gresham MD [address] [facility] Fam [facility] [address] Schedule an appointment as soon as possible for a visit in 3 week(s) Elyssa Tesfaye NP [address] [place] [phone] Go on 08/20/2024 Pulmonary hospital follow up at 10:30 AM Complexity of Follow up: [] Moderate Complexity: follow up within 7-14 calendar days ([address]59) [x] Severe Complexity: follow up within 7 calendar days ([address]) Follow up Testing, Pending results or Referrals [...] Rena Beverly MD Division of Hospitalist Medicine [facility] 08/08/2024, 12:48 PM [1] Past [...] deficiency documented in this encounter [facility] 08-08-2024 History of Presen t illness Narrative Patient chart reviewed and being rounded on. Note to follow. 6:29 AM 08/08/24 Rena Beverly MD Division of Hospitalist Medicine [facility] Images from the original note were not included. [facility], Pulmonary Medicine [address] [place] [address] Patient - Gonzalo Deluca, Age - 68 y.o. - 1955 Room Number - B2-254/B2-254 B Consulting - Rena Beverly MD Primary Care Physician - HERMINIA CASE MD [facility] # - [id number] Date of Admission - 07/30/2024 4:40 PM [...] She is not currently following with a filing or registry clerk. She is on Breo ellipta, Spiriva, and [...] prosthetic devices, implants and grafts, initial encounter ([facility]) Chronic pain COPD (chronic obstructive pulmonary disease) ([facility]) DDD (degenerative disc disease), cervical Leukocytosis Malignant neoplasm of exocervix ([facility]) Recurrent major depression ([facility]) Pulmonary nodule S/P hysterectomy Sciatica Shortness of breath Supplemental oxygen dependent PNA (pneumonia) H/O: CVA (cerebrovascular accident) Former smoker Nondisplaced fracture of neck of left femur ([facility]) Lumbar compression fracture, closed, initial encounter ([facility]) Severe malnutrition (CMS/HCC) ([facility]) Falls frequently Unintentional weight loss [...] status. Recent healthcare interactions include consultations with [facility], palliative care, pulmonology, orthopedic surgery, geriatrics, [...] appeal process to try to get into half-way facility. She denies any fever cough or [...] History: Medical History[1] LABS: CBC: Recent Labs 08/05/2421308/06/2411808/07/24137 WBC 9.9 7.8 8.7 RBC 3.80 3.47* 3.38* HGB 12.0 10.7* 10.5* HCT 38.5 35.3 33.8* MCV 101.3* 101.7* 100.0* RDW 13.9 14.0 14.3 PLT 221 166 189 BMP: Recent Labs 08/05/2421308/06/24 01108/07/24 013 NA 141 141 141 K 4.3 [...] of failure to thrive and debility - COSMETICS AND TOILETRIES SALESPERSON evaluation: recommended regular solids with thin liquids, sitting upright, slow rate of intake, and small bites - USP's has been denied - will need appeal. [...] signs, labs obtained, awaiting for appeal for half-way facility, if that gets denied will need [...] Primary Emergency Contact: Karishma Deluca Address: [address] [place] [address] [place] [address] [facility] Mobile Relation: Daughter Secondary Emergency Contact: Jace Deluca Mobile Relation: Son Rena Tuyet Beverly MD Division of Hospitalist Medicine Acute care [facility] [1] Past Medical History: Diagnosis Date [...] (interosseous) Fluid Accumulation: No significant fluid accumulation Desk Pens Assembler Strength: Nutrition Assessment: [facility] [...] status. Recent healthcare interactions include consultations with [facility], palliative care, pulmonology, orthopedic surgery, geriatrics, [...] 5.7 oz) % Weight Change (Calculated): -27.2 Upper Tract Body Weight (lbs) (Calculated): 120 lbs Upper Tract Body Weight (Kg) (Calculated): 55 kg % Upper Tract Body Weight (Calculated): 74.2 % BMI (kg/m2) [...] Continue current diet, Continue Oral Nutrition Supplement Francesca Bradshaw RD Contact: *[phone] or secure chat [facility] Geriatric Medicine Inpatient Consult Service Admission Date: [...] deficits. --Recommend outpatient follow up at [facility]) for more in depth cognitive evaluation [...] 24 hours) Basic metabolic panel Collection Time: 05/19/25 1:18 AM Result Value Ref Range SODIUM [...] (L) 07/30/2024 Lab Results Component Value Date [id number] 639 07/30/2024 Lab Results Component Value Date VITD25 30 09/21/2023 [1] Current Facility-Administered Medications: acetaminophen (Tylenol) tablet 650 mg, 650 mg, Oral, q6h PRN OR acetaminophen (Tylenol) suppository 650 mg, 650 mg, Rectal, q6h PRN, Lauren Serna MD acetaminophen (Tylenol) tablet 650 mg, 650 mg, Oral, BID, Saad Ezzie, 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 - MOTION PICTURE SET GRIP, 650 mg at 08/06/24 0841 albuterol (2.5 [...] 15 mg, Oral, q4h PRN, Imelda Bernard, 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 - MOTION PICTURE SET GRIP, 15 mg at 08/06/24 0856 naloxone (Narcan) injection 0.4 mg, 0.4 mg, IntraVENous, q5 min PRN, Lauren Serna MD ondansetron ODT (Zofran-ODT) disintegrating tablet 4 mg, 4 mg, Oral, q8h PRN OR ondansetron (Zofran) injection 4 mg, 4 mg, IntraVENous, q6h PRN, Lauren Serna MD PARoxetine (Paxil) tablet 30 mg, 30 mg, Oral, q AM, Saad Ezzie, 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 - MOTION PICTURE SET GRIP, 30 mg at 08/06/24 0841 polyethylene glycol [...] mg, 10 mg, Oral, Daily, Leann Cross, 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 - MOTION PICTURE SET GRIP QUEtiapine (SEROquel) tablet 50 mg, 50 mg, Oral, Nightly PRN, Saad Telles APRN - MOTION PICTURE SET GRIP, 50 mg at 08/05/24 2048 sodium chloride ([place]) 0.65 % nasal spray 2 spray, 2 spray, Each Nostril, q2h PRN, Dejuan Bishop MD, 2 spray at 08/02/24 1621 tiotropium (Spiriva Respimat) 2.5 MCG/ACT inhaler 2 puff, 2 puff, Inhalation, Daily, Lauren Serna MD, 2 puff at 08/06/24 0839 Images from the original note were not included. PHYSICAL THERAPY [facility] Treatment Note Name/MRN: Gonzalo Deluca ([id number]) Date of : 1955 Age: 68 y.o. Room/Bed: B2-254/B2-254 B Visit #: 5 out of 7 Discharge Recommendation: Prison Facility Other: TBD at next level of [...] from the original note were not included. [facility], Pulmonary Medicine [address] [place] [address] Patient - Gonzalo Deluca, Age - 68 y.o. - 1955 Room Number - B2-254/B2-254 B Consulting - Rena Beverly MD Primary Care Physician - HERMINIA CASE MD [facility] # - [id number] Date of Admission - 07/30/2024 4:40 PM [...] She is not currently following with a filing or registry clerk. She is on Breo ellipta, Spiriva, and [...] note were not included. OCCUPATIONAL THERAPY [facility] Treatment Note Name/MRN: Gonzalo Deluca ([id number]) Date of : 1955 Age: 68 y.o. Room[facility]Bed: [facility] B Visit #: 4 out of 6 [...] status. Recent healthcare interactions include consultations with [facility], palliative care, pulmonology, orthopedic surgery, geriatrics, [...] PLT 164 221 166 BMP: Recent Labs 08/04/243 08/05/244 08/06/24 0118 NA 142 141 141 K [...] of failure to thrive and debility - COSMETICS AND TOILETRIES SALESPERSON evaluation: recommended regular solids with thin liquids, sitting upright, slow rate of intake, and small bites - USP's has been denied - will need appeal. [...] Primary Emergency Contact: Karishma Deluca Address: [address] [place] [address] [place] [address] [facility] Mobile Relation: Daughter Secondary Emergency Contact: Jace Deluca Mobile Relation: Son Rena Tuyet Beverly MD Division of Hospitalist Medicine Acute care [facility] [1] Past Medical History: Diagnosis Date [...] note were not included. PHYSICAL THERAPY [facility] Treatment Note Name/MRN: Gonzalo Deluca ([id number]) Date of : 1955 Age: 68 y.o. Room/Bed: B2-254/B2254 B Visit #: 4 out of 7 Discharge Recommendation: Prison Facility Other: TBD at next level of care, pt owns a cane Assessment 68 y/o female referred from PCP office with weight loss, SOB and failure to thrive. Pt also c/o she fell in fe, she had left elbow pain, and her [...] note were not included. OCCUPATIONAL THERAPY [facility] Treatment Note Name/MRN: Gonzalo Deluca ([id number]) Date of : 1955 Age: 68 y.o. Room/Bed: -254/[facility] B Visit #: 3 out of 6 Discharge Recommendation: Prison Facility Equipment Needed: No Assessment Pt tolerated [...] from the original note were not included. [facility], Pulmonary Medicine [address] [place], [place] [id number] Patient - Gonzalo Deluca, Age - 68 y.o. 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 [...] prosthetic devices, implants and grafts, initial encounter ([facility]) Chronic pain COPD (chronic obstructive pulmonary disease) ([facility]) DDD (degenerative disc disease), cervical Leukocytosis Malignant neoplasm of exocervix ([facility]) Recurrent major depression ([facility]) Pulmonary nodule S/P hysterectomy Sciatica Shortness of breath Supplemental oxygen dependent PNA (pneumonia) H/O: CVA (cerebrovascular accident) Former smoker Nondisplaced fracture of neck of left femur ([facility]) Lumbar compression fracture, closed, initial encounter ([facility]) Severe malnutrition (CMS/HCC) ([facility]) Falls frequently Unintentional weight loss [...] status. Recent healthcare interactions include consultations with [facility], palliative care, pulmonology, orthopedic surgery, geriatrics, [...] History: Medical History[1] LABS: CBC: Recent Labs 08/04/244208/05/24213 WBC 8.2 9.9 RBC 3.23* 3.80 HGB 10.2* 12.0 HCT 32.5* 38.5 MCV 100.6* 101.3* RDW 13.8 13.9 PLT 164 221 BMP: Recent Labs 08/04/243 08/05/24213 NA 142 141 K 4.2 4.3 CL [...] of failure to thrive and debility - COSMETICS AND TOILETRIES SALESPERSON evaluation: recommended regular solids with thin liquids, sitting upright, slow rate of intake, and small bites - Consider half-way facility placement for comprehensive care - Geriatrics [...] -still denied as they stated her contact gaurd assistance - showing she is to independent for SNF placement - 08/05- VS, labs reviewed, continue antibiotics until 08/07, discussed with antibiotic stewardship, will need to Appeal P2P vs considering trying to get [place] - [...] Information Primary Emergency Contact: Karishma Deluca Address: [address] [place] [address] Mobile Relation: Daughter Secondary Emergency Contact: Jace Deluca Mobile Relation: Darshan Rena Beverly MD Division of Hospitalist Medicine [facility] [1] Past Medical History: Diagnosis Date Abnormal [...] major depression (HCC) Sciatica Thoracic compression fracture ([facility]) Vitamin D deficiency [2] acetaminophen, 650 mg, [...] from the original note were not included. [facility], Pulmonary Medicine [address] [place] [address] Patient - Gonzalo Deluca, Age - 68 y.o. 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 [...] prosthetic devices, implants and grafts, initial encounter ([facility]) Chronic pain COPD (chronic obstructive pulmonary disease) ([facility]) DDD (degenerative disc disease), cervical Leukocytosis Malignant neoplasm of exocervix ([facility]) Recurrent major depression ([facility]) Pulmonary nodule S/P hysterectomy Sciatica Shortness of breath Supplemental oxygen dependent PNA (pneumonia) H/O: CVA (cerebrovascular accident) Former smoker Nondisplaced fracture of neck of left femur (HCC) Lumbar compression fracture, closed, initial encounter ([facility]) Severe malnutrition (CMS/HCC) ([facility]) Falls frequently Unintentional weight loss [...] status. Recent healthcare interactions include consultations with [facility], palliative care, pulmonology, orthopedic surgery, geriatrics, [...] of failure to thrive and debility - COSMETICS AND TOILETRIES SALESPERSON evaluation: recommended regular solids with thin liquids, sitting upright, slow rate of intake, and small bites - Consider half-way facility placement for comprehensive care - Geriatrics [...] Primary Emergency Contact: Karishma Deluca Address: [address] [place] [address] [place] [address] [facility] Mobile Relation: Daughter Secondary Emergency Contact: Jace Deluca Mobile Relation: Son Rena Tuyet Beverly MD Division of Hospitalist Medicine [place] [...] note were not included. PHYSICAL THERAPY [facility] Name/MRN: Gonzalo Deluca ([id number]) Date: 08/04/2024 Chart review completed this date. PT attempted. Pt supine. Receiving breathing treatments during first attempt second attempt patient requesting STAMP PAD FINISHER return after eating breakfast. Pt tray had [...] (interosseous) Fluid Accumulation: No significant fluid accumulation Desk Pens Assembler Strength: Nutrition Assessment: 68 year old woman who remains admitted to [facility] at direction of PCP with FTT- [...] 122.35# 09/08/23) % Weight Change (Calculated): -24.3 Upper Tract Body Weight (lbs) (Calculated): 120 lbs Upper Tract Body Weight (Kg) (Calculated): 55 kg % Upper Tract Body Weight (Calculated): 77.2 % BMI (kg/m2) [...] Nutrition Supplement Celeste Garcia RDN, LDN, Contact: [phone] [facility] Geriatric Medicine Inpatient Consult Service Admission Date: [...] waiver --08/03: [facility]charge [facility] medically [facility] Severe Malnutrition --continue [...] note, this was the dose recommended by [facility] psychiatry when she was hospitalized [...] deficits. --Recommend outpatient follow up at [facility]) for more in depth [...] 08/03/2024 1118 Last data filed at 08/02/2024 1761 Gross per 24 hour Intake 200 ml [...] (L) 07/30/2024 Lab Results Component Value Date [id number] 639 07/30/2024 Lab Results Component Value Date VITD25 30 09/21/2023 [1] Current Facility-Administered Medications: acetaminophen (Tylenol) tablet 650 mg, 650 mg, Oral, q6h PRN OR acetaminophen (Tylenol) suppository 650 mg, 650 mg, Rectal, q6h PRN, Lauren Serna MD acetaminophen (Tylenol) tablet 650 mg, 650 mg, Oral, BID, DB Merrill CNP, 650 mg at 08/03/24 0911 albuterol (2.5 MG/3ML) 0.083% nebulizer solution 2.5 [...] MD, Last Rate: 12.5 mL/hr at 08/03/24 09, 2,000 mg at 08/03/24 09 cetirizine (ZyrTEC) [...] BID, Lauren Serna MD, 2 puff at 08/03/24 0914 montelukast (Singulair) tablet 10 mg, 10 mg, Oral, Nightly, Lauren Serna MD, 10 mg at 08/02/242047 morphine (MSIR) tablet 15 mg, 15 mg, Oral, q4h PRN, Imelda Bernard, DB - MOTION PICTURE SET GRIP, 15 mg at 08/03/24 0909 naloxone (Narcan) injection 0.4 mg, 0.4 mg, IntraVENous, q5 min PRN, Lauren Serna MD ondansetron ODT (Zofran-ODT) disintegrating tablet 4 mg, 4 mg, Oral, q8h PRN OR ondansetron (Zofran) injection 4 mg, 4 mg, IntraVENous, q6h PRN, Lauren Serna MD PARoxetine (Paxil) tablet 30 mg, 30 mg, Oral, q AM, Saad Telles APRN - MOTION PICTURE SET GRIP, 30 mg at 08/03/24 0910 polyethylene glycol [...] mg, 10 mg, Oral, Daily, Leann Cross, 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 - MOTION PICTURE SET GRIP QUEtiapine (SEROquel) tablet 50 mg, 50 mg, Oral, Nightly PRN, Saad Haynese 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 - MOTION PICTURE SET GRIP, 50 mg at 08/02/242047 sodium chloride ([place]) 0.65 % nasal spray 2 spray, 2 spray, Each Nostril, q2h PRN, Dejuan Bishop MD, 2 spray at 08/02/24 1621 tiotropium (Spiriva Respimat) 2.5 MCG/ACT inhaler 2 puff, 2 puff, Inhalation, Daily, Lauren Serna MD, 2 puff at 08/03/24 0915 Images from the original note were not included. PHYSICAL THERAPY [facility] Treatment Note Name/MRN: Gonzalo Deluca ([id number]) Date of : 1955 Age: 68 y.o. Room[facility]Bed: [facility] B Visit #: 3 out of 7 visits Discharge Recommendation: Prison Facility Other: TBD at next level of [...] note were not included. OCCUPATIONAL THERAPY [facility] Treatment Note Name/MRN: Gonzalo Deluca ([id number]) Date of : 1955 Age: 68 y.o. Room/Bed: B2-254/B2-254 B Visit #: 2 out of 6 visits Discharge Recommendation: Prison Facility Equipment Needed: No Prior Level of [...] doffed pants with unilateral UE support at [facility]. Pt demo no overt LoB. Pt demo threading LE clothing while seated and managed over hips in standing at [facility]. Pt doffed/donned austin socks while seated EOB [...] Pt completed standing LE bathing (periarea) at [facility]. Pt demo no overt LoB, generally unstable. [...] x3 STS from EOB without device at [facility]. Pt ed on proper tech to maintain LUE NWB, demo good teachback. Pt denied dizziness but demo SOB Sitting balance: Independent Standing balance: Contact Guard Pt completed standing ADL tasks at [facility]. Pt demo instability but no overt LoB. [...] status. Recent healthcare interactions include consultations with [facility], palliative care, pulmonology, orthopedic surgery, geriatrics, [...] of failure to thrive and debility - COSMETICS AND TOILETRIES SALESPERSON evaluation: recommended regular solids with thin liquids, sitting upright, slow rate of intake, and small bites - Consider half-way facility placement for comprehensive care - Geriatrics [...] Primary Emergency Contact: Karishma Deluca Address: [address] [place] [address] [place] [address] [facility] Mobile Relation: Daughter Secondary Emergency Contact: Jace Deluca Mobile Relation: Son Rena Beverly MD Division of Hospitalist Medicine [facility] [1] Past Medical History: Diagnosis Date Abnormal [...] from the original note were not included. 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 [...] prosthetic devices, implants and grafts, initial encounter ([facility]) Chronic back pain COPD (chronic obstructive pulmonary disease) ([facility]) DDD (degenerative disc disease), cervical Leukocytosis Malignant neoplasm of exocervix (HCC) Recurrent major depression (HCC) Pulmonary nodule S/P hysterectomy Sciatica Shortness of breath Supplemental oxygen dependent PNA (pneumonia) H/O: CVA (cerebrovascular accident) Former smoker Nondisplaced fracture of neck of left femur (HCC) Lumbar compression fracture, closed, initial encounter ([facility]) Severe malnutrition (CMS/HCC) ([facility]) Falls frequently Unintentional weight loss [...] short of breath when trying to eat. -Computer Help Desk Representative would be helpful. -BMI 15.28 -Albumin-->3.0 -Monitor. [...] today. States feels better now with stabilization. JUANON. Still unsure about response to MSIR. Discussion [...] Improve or Maintain Function/Quality of Life, Preserve [place]/Autonomy/Control, and Remain at Home Advanced Directives: DNR-CCA, DNI Functional Assessment: PPS 70% amb reduced; can't do normal work/some disease; full self care; normal or reduced intake; full LOC Prognosis: depends upon goals of care Spiritual Assessment: No spiritual distress identified Bereavement and Grief: To Be Determined PDMP/OARRS Reviewed: Yes-reviewed ROS: See palliative care ROS/ESAS below; All other systems were reviewed and are negative. [place] Symptom Assessment Score [place] Score Pain Score (if non-verbal, add .FLACC [...] note were not included. PHYSICAL THERAPY [facility] Treatment Note Name/MRN: Gonzalo Deluca ([id number]) Date of : 1955 Age: 68 y.o. Room/Bed: B2-254/B2-254 B Visit #: 2 out of 7 visits Discharge Recommendation: Continue to assess pending progress, Prison Facility Other: TBD at next level of [...] Treatment Minutes: 10 Minutes (gait x1) Rayo Joseph, PT [facility] Geriatric Medicine Inpatient Consult Service Admission Date: [...] deficits. --Recommend outpatient follow up at [facility] ([facility]) for more in depth [...] fracture, Vitamin D deficiency, anxiety, presented to [facility] on 07/30/24 with complaints of weight [...] (L) 07/30/2024 Lab Results Component Value Date [id number] 07/30/2024 Lab Results Component Value Date [...] DB Merrill CNP, 650 mg at 08/02/24 08 albuterol (2.5 MG/3ML) 0.083% nebulizer solution [...] Lauren Serna MD, 15 mg at 08/02/24 08 calcitonin (Miacalcin) injection 50 Units, 50 Units, [...] BID, Lauren Serna MD, 2 puff at 08/02/2406 montelukast (Singulair) tablet 10 mg, 10 mg, Oral, Nightly, Lauren Serna MD, 10 mg at 08/01/242032 morphine (MSIR) tablet 15 mg, 15 mg, Oral, q4h PRN, DB Lo CNP, 15 mg at 08/02/241155 naloxone (Narcan) injection 0.4 mg, 0.4 mg, IntraVENous, q5 min PRN, Lauren Serna MD ondansetron ODT (Zofran-ODT) disintegrating tablet 4 mg, 4 mg, Oral, q8h PRN OR ondansetron (Zofran) injection 4 mg, 4 mg, IntraVENous, q6h PRN, Lauren Serna MD PARoxetine (Paxil) tablet 30 mg, 30 mg, Oral, q AM, Saad Telles APRN - MOTION PICTURE SET GRIP, 30 mg at 08/02/24 0936 polyethylene glycol [...] mg, Oral, Daily, Leann Cross APRN - MOTION PICTURE SET GRIP QUEtiapine (SEROquel) tablet 50 mg, 50 mg, Oral, Nightly PRN, Saad Telles APRN - MOTION PICTURE SET GRIP, 50 mg at 08/01/242032 sodium chloride ([place]) 0.65 % nasal spray 2 spray, 2 spray, Each Nostril, q2h PRN, Dejuan Bishop MD tiotropium (Spiriva Respimat) 2.5 MCG/ACT inhaler 2 puff, 2 puff, Inhalation, Daily, Lauren Serna MD, 2 puff at 08/02/24 0806 Hospitalist Progress Note 08/02/[phone]: Please page me ([phone]) for patient care issues. [phone]: Please page [facility] night Hospitalist for any issues. Subjective: Admit Date: 07/30/2024 PCP: HERMINIA CASE MD Room#: B2-254/B2-254 B Interval History: Patient is sitting on the bed, still on 5 L nasal cannula saturating well. No signs of respiratory distress noticed Denies any cough or sputum production pain No other significant overnight issues. Adult diet Regular @[id number]@ 24HR INTAKE/OUTPUT: No intake or output data [...] prophylaxis: Lovenox daily. Disposition: PT OT recommending half-way facility. Possible discharge in next 1 to 2 days. Pending Long arm cast placement -am labs, replace lytes prn -increase activity -DVT prophylaxis: [] Lovenox [] Heparin [] SCDs [x] Encourage ambulation [] Already on Anticoagulation Advance Directive: DNR-CCA Discharge planning: TBD Dejuan Bishop MD Division of Hospitalist Medicine Inpatient Medical Services/[facility]: [phone] Acute hypoxic respiratory failure [1] Past Medical [...] note were not included. OCCUPATIONAL THERAPY [facility] Treatment Note Name/MRN: Gonzalo Deluca ([id number]) Date of : 1955 Age: 68 y.o. Room/Bed: [facility] B Visit #: 1 out of 6 visits Discharge Recommendation: Prison Facility, Continue to assess pending progress Equipment [...] from the original note were not included. [facility], Pulmonary Medicine [address] [place] [address] [id number] Patient - Gonzalo Deluca, Age - 68 y.o. 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 [phone]: Please page [facility] night Hospitalist for any issues. Subjective: Admit Date: 07/30/2024 PCP: HERMINIA CASE MD Room#: B2-254/B2-254 B Interval History: Patient is sitting on the chair, denies any chest pain shortness of breath or palpitations Denies any upper extremity pain. No other significant overnight issues. Adult diet Regular @[id number]@ 24HR INTAKE/OUTPUT: Intake/Output Summary (Last 24 hours) [...] prophylaxis: Lovenox daily. Disposition: PT OT recommending half-way facility. Possible discharge in next 1 to 2 days. Pending Long arm cast placement -am labs, replace lytes prn -increase activity -DVT prophylaxis: [] Lovenox [] Heparin [] SCDs [x] Encourage ambulation [] Already on Anticoagulation Advance Directive: DNR-CCA Discharge planning: TBD Dejuan Bishop MD Division of Hospitalist Medicine Inpatient Medical Services/[facility]: [phone] [1] Past Medical History: Diagnosis Date Abnormal [...] note were not included. PHYSICAL THERAPY [facility] Treatment Note Name/MRN: Gonzalo Deluca ([id number]) Date of : 1955 Age: 68 y.o. Room/Bed: [facility] B Visit #: 1 out of 7 visits Discharge Recommendation: Continue to assess pending progress, Prison Facility Other: TBD at next level of [...] Esparza PT at 08/01/2024 4:08 PM EDT [facility] Geriatric Medicine Inpatient Consult Service Admission Date: [...] deficits. --Recommend outpatient follow up at [facility] ([facility]) for more in depth [...] fracture, Vitamin D deficiency, anxiety, presented to [facility] on 07/30/24 with complaints of weight [...] (L) 07/30/2024 Lab Results Component Value Date [id number] 07/30/2024 Lab Results Component Value Date [...] Daily, Lauren Serna MD, 81 mg at 08/01/24839 buPROPion XL (Wellbutrin XL) 24 hr tablet [...] 7.5 mg, 7.5 mg, Oral, q4h PRN, Imelda Bernard, 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 - MOTION PICTURE SET GRIP, 7.5 mg at 08/01/24839 naloxone (Narcan) injection 0.4 mg, 0.4 mg, [...] 4:40 PM Age: 68 y.o. Room/Bed: [facility] B Subjective Patient alert [...] Plus 07/31/24 1030 07/31/24 1031 Supplement:HS Snack; [place] Ensure Plus Until discontinued Question Answer Comment Frequency HS Snack Select supplement: [place] Ensure Plus 07/31/24 1030 07/30/24 2313 Adult diet Regular Diet effective now Question: Diet type Answer: Regular 07/30/24 9166 Oxygen: Oxygen Therapy: Supplemental oxygen O2 Delivery [...] bites/sips Patient has achieved all acute care COSMETICS AND TOILETRIES SALESPERSON goals. 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 -Computer Help Desk Representative would be helpful. -BMI 15.28 -Albumin-->3.0 -Monitor. [...] emphysema. -Pulmonology consulted, await recs. Discussed with SUMMER CHILD CAREGIVER Leann this AM. She will need follow [...] Improve or Maintain Function/Quality of Life, Preserve [place]/Autonomy/Control, and Remain at Home Advanced Directives: DNR Functional Assessment: PPS 70% amb reduced; can't do normal work/some disease; full self care; normal or reduced intake; full LOC Prognosis: depends upon goals of care Spiritual Assessment: No spiritual distress identified Bereavement and Grief: To Be Determined PDMP/OARRS Reviewed: Yes-reviewed ROS: See palliative care ROS/ESAS below; All other systems were reviewed and are negative. [place] Symptom Assessment Score [place] Score Pain Score (if non-verbal, add .FLACC [...] -- chronic? PLAN: Will apply LAC tomorrow 07 Lab Results Component Value Date WBC 8.9 07/30/2024 HGB 11.2 (L) 07/30/2024 HCT 37.0 07/30/2024 PLT 225 07/30/2024 Hospitalist Progress Note 07/31/2024 [phone]: Please page me ([phone]) for patient care issues. [phone]: Please page [facility] night Hospitalist for any issues. Subjective: Admit Date: 07/30/2024 PCP: HERMINIA CASE MD Room#: B2-254/B2-254 B Interval History: Patient is sitting on the bed, denies any chest pain or shortness of breath. Denies any abdominal pain nausea or vomitings No other significant overnight issues. Adult diet Regular @[id number]@ 24HR INTAKE/OUTPUT: Intake/Output Summary (Last 24 hours) [...] prophylaxis: Lovenox daily. Disposition: PT OT recommending half-way facility. Possible discharge in next 1 to 2 days. Pending Long arm cast placement -am labs, replace lytes prn -increase activity -DVT prophylaxis: [] Lovenox [] Heparin [] SCDs [x] Encourage ambulation [] Already on Anticoagulation Advance Directive: DNR-CCA Discharge planning: TBD Dejuan Bishop MD Division of Hospitalist Medicine Inpatient Medical Services/[facility] P[facility]ER: [phone] [1] Past Medical History: Diagnosis Date Abnormal [...] note were not included. PHYSICAL THERAPY [facility] Initial Evaluation Name/MRN: Gonzalo Deluca ([id number]) Evaluation Date: 07/31/2024 Date of : 1955 Admission Date: 07/30/2024 4:40 PM Age: 68 y.o. Room/Bed: B2254/[facility] B Discharge Recommendation: Continue to assess pending progress, Prison Facility Other: TBD at next level of [...] Problem List Diagnosis Date Noted Severe malnutrition ([facility]) ([facility]) 07/31/2024 Adult failure to thrive 07/30/2024 Falls frequently 09/20/2023 Unintentional weight loss 09/20/2023 Debility 09/20/2023 PFO (patent foramen ovale) 09/20/2023 Lumbar compression fracture, closed, initial encounter ([facility]) 02/13/2023 Nondisplaced fracture of neck of left femur ([facility]) 11/06/2022 Other specified complication of vascular prosthetic devices, implants and grafts, initial encounter ([facility]) 08/06/2021 Poor venous access 12/19/2019 H/O: CVA (cerebrovascular accident) 12/14/2019 Malignant neoplasm of exocervix ([facility]) 11/07/2019 S/P hysterectomy 11/07/2019 PNA (pneumonia) 08/02/2019 Leukocytosis 04/13/2018 Shortness of breath 04/13/2018 DDD (degenerative disc disease), cervical 04/12/2018 Recurrent major depression ([facility]) 04/12/2018 Chronic back pain 04/10/2017 COPD (chronic obstructive pulmonary disease) ([facility]) 04/10/2017 Pulmonary nodule 04/10/2017 Sciatica [...] Responsibilities: Independent Receives Help From: Family Active Ibm Mainframe Developer: N/A Prior Level of Function Prior Level [...] Raw Score (No Stairs) : 15 [facility] Score: Walked 10 steps or more [...] of Care supervision is transferred to a [facility] Therapy Services Physical Therapist. Goals [...] BSO AND PELVIC LYMPH; DR. ZIYAD MENENDEZ [facility] OTHER SURGICAL HISTORY Left 12/19/2019 Med Port POWER Regular Size OTHER SURGICAL HISTORY Left 11/07/2022 Percutaneous skeltal fixation femoral fracture TUBAL LIGATION 1992 Images from the original note were not included. Speech-Language Pathology SPEECH LANGUAGE PATHOLOGY [facility] Bedside Swallow Evaluation Patient Name: Gonzalo Deluca Evaluation Date: 07/31/2024 Date of : 1955 Admission Date: 07/30/2024 4:40 PM Age: 68 y.o. Room/Bed: [facility] B IMPRESSION: No s/s [...] needed. Pt would benefit from skilled acute COSMETICS AND TOILETRIES SALESPERSON services Ensure patient tolerance of the recommended [...] be evaluated. Dysphagia History: No history of COSMETICS AND TOILETRIES SALESPERSON services in EMR with retrospective chart review Baseline Diet: Regular diet with thin liquids Current Diet: Dietary Orders (From admission, onward) Start Ordered 07/31/24 1031 Supplement:AM Snack, PM Snack; Vanilla Ensure Plus Until discontinued Question Answer Comment Frequency AM Snack Frequency PM Snack Select supplement: Vanilla Ensure Plus 07/31/24 1030 07/31/24 1031 Supplement:HS Snack; [place] Ensure Plus Until discontinued Question Answer Comment Frequency HS Snack Select supplement: [place] Ensure Plus 07/31/24 1030 07/30/24 2313 Adult [...] 09/20/2023 Lumbar compression fracture, closed, initial encounter ([facility]) 02/13/2023 Nondisplaced fracture of neck of left femur ([facility]) 11/06/2022 Other specified complication of vascular prosthetic devices, implants and grafts, initial encounter ([facility]) 08/06/2021 Poor venous access 12/19/2019 H/O: CVA (cerebrovascular accident) 12/14/2019 Malignant neoplasm of exocervix ([facility]) 11/07/2019 S/P hysterectomy 11/07/2019 PNA (pneumonia) 08/02/2019 Leukocytosis 04/13/2018 Shortness of breath 04/13/2018 DDD (degenerative disc disease), cervical 04/12/2018 Recurrent major depression ([facility]) 04/12/2018 Chronic back pain 04/10/2017 COPD (chronic obstructive pulmonary disease) ([facility]) 04/10/2017 Pulmonary nodule 04/10/2017 Sciatica [...] States was sent by PCP Shortness of [id number] y.o. who presents to the emergency department [...] Start: 07/31/24 Expected End: 08/07/24 Therapy Time COSMETICS AND TOILETRIES SALESPERSON Individual Minutes Time In: 1518 Time Out: 1526 Minutes: 8 Amelie Esquivel, ORI [1] Past Medical History: Diagnosis Date Abnormal [...] HYSTERECTOMY WITH BSO AND PELVIC LYMPH; DR. ZIAYD MENENDEZ [facility] OTHER SURGICAL HISTORY Left 12/19/2019 Med Port POWER Regular Size OTHER SURGICAL HISTORY Left 11/07/2022 Percutaneous skeltal fixation femoral fracture TUBAL LIGATION 1992 Images from the original note were not included. PHYSICAL THERAPY [facility] Name/MRN: Gonzalo Deluca ([id number]) Date: 07/31/2024 Chart review completed. Patient is [...] not here- denies issues -denies assist status- COSMETICS AND TOILETRIES SALESPERSON ordered per MNT protocol , will initiate [...] (interosseous) Fluid Accumulation: No significant fluid accumulation Desk Pens Assembler Strength: na Nutrition Assessment: per MD-CHIEF [...] lb) (08/06/24) % Weight Change (Calculated): -28.8 Upper Tract Body Weight (lbs) (Calculated): 120 lbs [place] Body Weight (Kg) (Calculated): 55 kg % [place] Body Weight (Calculated): 74.2 % BMI (kg/m2) [...] Continue current diet, Continue Oral Nutrition Supplement Francesca Bradshaw RD Contact: *[phone] or secure chat documented in this encounter [facility] 08-08-2024 Plan of care note Problem: Knowledge [...] by Sadie Rodriguez RN Outcome: Not Progressing [facility] [employer] 08-08-2024 Plan of care note Problem: Potential [...] Goal: Promote nutritional intake Outcome: Not Progressing [facility] 08-07-2024 Note Formatting of this n ote might be different from the original. Care Management Progress Note -Pt started the appeals process yesterday for denied SNF stay. We now have 72 hours for a response from her insurance. -Notified Dr. Beverly -Updated clinicals faxed to [phone] -If the appeal process is upheld, pt will have to go home with [facility]. -membership manager to follow and assist as needed. Length of Stay (Days): 6 GMLOS: 5.2 [facility] 08-07-2024 Note Formatting of this n ote might be different from the original. Care Management Progress Note -Pt started the appeals process yesterday for denied SNF stay. We now have 72 hours for a response from her insurance. -Notified Dr. Beverly -Updated clinicals faxed to [phone] -If the appeal process is upheld, pt will have to go home with [facility]. -membership manager to follow and assist as needed. Length of Stay (Days): 6 GMLOS: 5.2 [facility] 08-06-2024 Plan of care note Problem: [...] Problem Interventions Goal: Dietary Supplements Outcome: Progressing [facility] 08-06-2024 Note Formatting of this n ote might be different from the original. Spoke with pt earlier in the day to to determine if she wants to appeal the P2P decision denying SNF. Pt asked to go to [place]. She is in the process of trying to get to [facility] through her waiver services. She started [...] Appeals number given to pt to call: [phone]. Appeals fax number: [phone]. Pt was calling as this CM was walking out of her room. membership manager to follow and assist as needed. T [facility] 08-06-2024 Note Formatting of this n ote might be different from the original. Spoke with pt earlier in the day to to determine if she wants to appeal the P2P decision denying SNF. Pt asked to go to [place]. She is in the process of trying to get to [facility] through her waiver services. She started [...] Appeals number given to pt to call: [phone]. Appeals fax number: [phone]. Pt was calling as this CM was walking out of her room. membership manager to follow and assist as needed. T [facility] 08-06-2024 Note Formatting of this n ote might be different from the original. Spoke with patients daughter Karishma, regarding dc plans, who states that they would like to ideally get patient into half-way and then get patient over to [facility] under Medicaid. This will require an insurance appeal for the half-way facility. Shared this discussion with the TCC T [facility] 08-06-2024 Note Formatting of this n ote might be different from the original. Spoke with patients daughter Karishma, regarding dc plans, who states that they would like to ideally get patient into half-way and then get patient over to [facility] under Medicaid. This will require an insurance appeal for the half-way facility. Shared this discussion with the TCC [facility] 08-06-2024 Plan of care note Problem: [...] are met Outcome: Progressing T [facility] 08-06-2024 Plan of care note Problem: Knowledge [...] integrity is maintained or improved Outcome: Progressing [facility] 08-05-2024 Plan of care note [...] Interventions Goal: Assess Nutritional Intake Outcome: Progressing [facility] 08-05-2024 Plan of care note [...] Progressing Goal: Promote nutritional intake Outcome: Progressing [facility] 08-04-2024 Note Formatting of this n ote might be different from the original. Was updated by attending that peer to peer was denied and patient would need to submit an appeal. The appeal number for [facility] is [phone] and fast appeal fax [phone] is not open on the weekend and this will need to be initiated on Tuesday. Discussed with patient and she wanted to discuss with her daughter prior to deciding to pursue appeal or discharge home with [facility]. She did state that her daughter was interested in getting her into an assistive living and that she has medicaid. Will update weekday TCC to follow.. T [facility] 08-04-2024 Note Formatting of this n ote might be different from the original. Was updated by attending that peer to peer was denied and patient would need to submit an appeal. The appeal number for [facility] is [phone] and fast appeal fax [phone] is not open on the weekend and this will need to be initiated on Tuesday. Discussed with patient and she wanted to discuss with her daughter prior to deciding to pursue appeal or discharge home with [facility]. She did state that her daughter was interested in getting her into an assistive living and that she has medicaid. Will update weekday TCC to follow.. [facility] 08-04-2024 Plan of care note Problem: [...] My discharge needs are met Outcome: Progressing [facility] 08-04-2024 Note Formatting of this n ote might be different from the original. Called [facility] and spoke with Xiao and insurance is requesting peer to peer to be completed by 08/06 at 12 noon central standard time. Number for peer to peer is [phone] option 5. Will need members name, and ID number. Physicians are available 8-5 over the weekend central standard time. Did update attending with information to complete peer to peer. . [facility] 08-04-2024 Note Formatting of this n ote might be different from the original. Called [facility] and spoke with Xiao and insurance is requesting peer to peer to be completed by 08/06 at 12 noon central standard time. Number for peer to peer is [phone] option 5. Will need members name, and ID number. Physicians are available 8-5 over the weekend central standard time. Did update attending with information to complete peer to peer. . [facility] [employer] 08-04-2024 Plan of care note Problem: Knowledge [...] Progressing Goal: Promote nutritional intake Outcome: Progressing [facility] [employer] 08-03-2024 Note Formatting of this n ote might be different from the original. Tasked weekend field nurse case manager to follow for pending auth to [facility]. 7000 will need to be completed at the time of discharge. membership manager to follow and assist as needed. [facility] 08-03-2024 Note Formatting of this n ote might be different from the original. Tasked weekend field nurse case manager to follow for pending auth to [facility]. 7000 will need to be completed at the time of discharge. membership manager to follow and assist as needed. [facility] 08-03-2024 Note Formatting of this n ote might be different from the original. Sent updated notes to [facility] via [facility] per TCC request. Await review and response regarding ability to accept. TCC notified. [facility] 08-03-2024 Note Formatting of this n ote might be different from the original. Sent updated notes to [facility] via [facility] per TCC request. Await review and response regarding ability to accept. TCC notified. [facility] 08-03-2024 Note Formatting of this n ote might be different from the original. Care Management Progress Note -Discharge plan is [facility] -Tasked [place] supervisor to start auth. -Tasked SAW GRINDER to send updated clinical notes to facility. -membership manager to follow for auth approval and assist as needed. Length of Stay (Days): 2 GMLOS: 4.1 [facility] 08-03-2024 Note Formatting of this n ote might be different from the original. Care Management Progress Note -Discharge plan is [facility] -Tasked SAW GRINDER city supervisor to start auth. -Tasked SAW GRINDER to send updated clinical notes to facility. -membership manager to follow for auth approval and assist as needed. Length of Stay (Days): 2 GMLOS: 4.1 [facility] 08-03-2024 Plan of care note Problem: [...] Interventions Goal: Assess Nutritional Intake Outcome: Progressing [facility] 08-03-2024 Plan of care note Problem: [...] My discharge needs are met Outcome: Progressing [facility] 08-02-2024 Note Formatting of this n ote might be different from the original. Referral placed to [facility] via Careport per TCC request. Await review and response regarding ability to accept. TCC notified. [facility] 08-02-2024 Note Formatting of this n ote might be different from the original. Referral placed to [facility] via Careport per TCC request. Await review and response regarding ability to accept. TCC notified. [facility] 08-02-2024 Note Formatting of this n ote might be different from the original. Care Management Progress Note -Spoke with pt at bedside for SNF choices. -Pt would like referrals sent to [facility], [facility], [facility], and [facility]. -Tasked SAW GRINDER to send those referrals. -Will speak with pt again once facility responses are in for facility of choice. -membership manager to follow and assist as needed. Length of Stay (Days): 1 GMLOS: No GMLOS Documented -Spoke with pt and she has chosen [facility] as FOC. Informed facility. ADOD is [address] Bishop. Anticipate starting auth tomorrow. membership manager to follow and assist as needed. [facility] 08-02-2024 Note Formatting of this n ote might be different from the original. Care Management Progress Note -Spoke with pt at bedside for SNF choices. -Pt would like referrals sent to [facility], [facility], [facility], and [facility]. -Tasked SAW GRINDER to send those referrals. -Will speak with pt again once facility responses are in for facility of choice. -membership manager to follow and assist as needed. Length of Stay (Days): 1 GMLOS: No GMLOS Documented -Spoke with pt and she has chosen [facility] as FOC. Informed facility. ADOD is [address] Bishop. Anticipate starting auth tomorrow. membership manager to follow and assist as needed. [facility] 08-02-2024 Plan of care note Problem: Knowledge [...] needs are met Outcome: Progressing [facility] 08-02-2024 Hospital Discharg e instructions Gabriela Rosa RN - 08/02/2024 7:21 AM EDT Images from the original note were not included. Continuity of Care Form Patient Name: Gonzalo Deluca : 1955 Admit date: 07/30/2024 Discharge date: 08/08/24 Code Status Order: DNR-CCA Advance Directives: N Admitting Physician: Lauren Serna MD PCP: HERMINIA CASE MD Discharging Nurse: Gabriela Rosa, CHARLEY Discharging Hospital Unit/Room#: B2-254/B2-254 B Discharging Unit Emergency Contact: Extended Emergency Contact Information Primary Emergency Contact: Karishma Deluca [address]: [address] [place] [address] [place] [address] [facility] Relation: Daughter Secondary Emergency Contact: Jace [...] Dressing Independent Toileting Minimal assistance Feeding Independent User Experience Lead Minimal assistance Med Delivery yes Wound Care [...] Date: 07/30/24 Discharging to Facility/ Agency Name: [facility] Address: [place] [address] Fax: Dialysis Facility (if applicable) Name: Address: Dialysis Schedule: Phone: Fax: Credit Report Checker/External Grinder signature: ICIAN SECTION Name: Gonzalo Deluca Prognosis: fair Condition at Discharge: stable Rehab Potential (if transferring to Rehab): good Recommended Labs or Other Treatments After Discharge: CBC and CMP The individual is being admitted to a nursing facility directly from an [facility] or a unit of a [facility] that is not operated by or licensed by [facility] under section 5119.14 or 5160-3-15.1 5 The individual requires the level of services provided by a nursing facility for the condition for which he or she was treated in the hospital and, Physician Certification: I certify the above information and transfer of Gonzalo Deluca is necessary for the continuing treatment of the diagnosis listed and that she requires half-way facility for less than 30 days. Update [...] status. Recent healthcare interactions include consultations with [facility], palliative care, pulmonology, orthopedic surgery, geriatrics, [...] respiratory failure and severe emphysema. Plan: - COSMETICS AND TOILETRIES SALESPERSON evaluation: recommended regular solids with thin liquids, [...] SIGNATURE: documented in this encounter [facility] 08-02-2024 Plan of care note Problem: Knowledge [...] needs are met Outcome: Progressing [facility] 08-01-2024 Note Formatting of this n ote [...] case she decides before then on choices. -membership manager to follow and assist as needed. Length of Stay (Days): 1 GMLOS: No GMLOS Documented [facility] 08-01-2024 Note Formatting of this n ote [...] case she decides before then on choices. -membership manager to follow and assist as needed. Length of Stay (Days): 1 GMLOS: No GMLOS Documented [facility] 08-01-2024 Consult note Formatting of th is note is different from the original. [facility], Pulmonary Medicine [address] [place] [id number] Patient - Gonzalo Deluca [facility] # - [id number] - 1955 Date of Admission - 07/30/2024 [...] hematemesis melena hematuria Apparently not seeing any filing or registry clerk recently Was on Dulera Spiriva and rescue inhaler compliant with the medication Not on NIV No PFT available in [facility] Medical History Past Medical History Medical History[2] [...] Transportation Needs (06/06/2024) Received from [facility] PRAPARE - Transportation Lack of Transportation (Medical): Yes Lack of Transportation (Non-Medical): No Physical Activity: Insufficiently Active (07/31/2024) Exercise Vital Sign Days of Exercise per Week: 3 days Minutes of Exercise per Session: 20 min Stress: No Stress Concern Present (07/31/2024) [employer] [place] [facility] [employer] - Occupational Stress Questionnaire Feeling of Stress : Only a little Recent Concern: Stress - Stress Concern Present (06/06/2024) Received from [facility] Occupational [facility] - Occupational Stress Questionnaire Feeling of Stress : To some extent Social Connections: Socially Isolated (07/31/2024) Social Connection and Isolation Panel [NHANES] Frequency of Communication with Friends and Family: Three times a week Frequency of Social Gatherings with Friends and Family: Three times a week Attends Voodoo Services: Never Active Member of Clubs or [...] 325 ml Output -- Net 325 ml @[email or web address]@ Physical Exam General appearance: Awake, alert, no [...] be severe no current PFT available on [facility] 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 [...] prosthetic devices, implants and grafts, initial encounter ([facility]) Chronic back pain COPD (chronic obstructive pulmonary disease) ([facility]) DDD (degenerative disc disease), cervical Leukocytosis Malignant neoplasm of exocervix ([facility]) Recurrent major depression ([facility]) Pulmonary nodule S/P hysterectomy Sciatica Shortness of breath Supplemental oxygen dependent PNA (pneumonia) H/O: CVA (cerebrovascular accident) Former smoker Nondisplaced fracture of neck of left femur ([facility]) Lumbar compression fracture, closed, initial encounter ([facility]) Severe malnutrition (CMS/HCC) ([facility]) Falls frequently Unintentional weight loss Debility PFO (patent foramen ovale) Adult failure to thrive [2] Past Medical History: Diagnosis Date Abnormal stress test Acute exacerbation of chronic obstructive pulmonary disease ([facility]) 04/12/2018 Allergic rhinitis Arthritis Asthma Bronchitis Cancer (CMS/HCC) ([facility]) skin Cervical cancer ([facility]) Chest pain COPD (chronic obstructive pulmonary disease) ([facility]) USE OXYGEN 3 L AT NIGHT DDD (degenerative disc disease), cervical Defect, retina, with detachment right DJD (degenerative joint disease), lumbar Emphysema lung ([facility]) Former smoker Hematuria SCHEDULED FOR [...] BSO AND PELVIC LYMPH; DR. ZIYAD MENENDEZ [facility] OTHER SURGICAL HISTORY Left 12/19/2019 Med [...] Allergen Reactions Pollen Extract Unknown [facility] 08-01-2024 Consult note Formatting of th is note is different from the original. [facility], Pulmonary Medicine [address] [place] [id number] Patient - Gonzalo Deluca - 1955 Date [...] hematemesis melena hematuria Apparently not seeing any filing or registry clerk recently Was on Dulera Spiriva and rescue [...] Transportation Needs (06/06/2024) Received from [facility] PRAPARE - Transportation Lack of Transportation (Medical): Yes Lack of Transportation (Non-Medical): No Physical Activity: Insufficiently Active (07/31/2024) Exercise Vital Sign Days of Exercise per Week: 3 days Minutes of Exercise per Session: 20 min Stress: No Stress Concern Present (07/31/2024) [place] [place] [facility] [employer] [facility] - Occupational Stress Questionnaire Feeling of Stress : Only a little Recent Concern: Stress - Stress Concern Present (06/06/2024) Received from [facility] [place] [facility] - Occupational Stress Questionnaire Feeling of Stress : To some extent Social Connections: Socially Isolated (07/31/2024) Social Connection and Isolation Panel [NHANES] Frequency of Communication with Friends and Family: Three times a week Frequency of Social Gatherings with Friends and Family: Three times a week Attends Voodoo Services: Never Active Member of Clubs or [...] 325 ml Output -- Net 325 ml @[email or web address]@ Physical Exam General appearance: Awake, alert, no [...] be severe no current PFT available on [facility] 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 [...] prosthetic devices, implants and grafts, initial encounter ([facility]) Chronic back pain COPD (chronic obstructive pulmonary disease) ([facility]) DDD (degenerative disc disease), cervical Leukocytosis Malignant neoplasm of exocervix ([facility]) Recurrent major depression ([facility]) Pulmonary nodule S/P hysterectomy Sciatica Shortness of breath Supplemental oxygen dependent PNA (pneumonia) H/O: CVA (cerebrovascular accident) Former smoker Nondisplaced fracture of neck of left femur ([facility]) Lumbar compression fracture, closed, initial encounter ([facility]) Severe malnutrition ([facility]) ([facility]) Falls frequently Unintentional weight loss Debility PFO (patent foramen ovale) Adult failure to thrive [2] Past Medical History: Diagnosis Date Abnormal stress test Acute exacerbation of chronic obstructive pulmonary disease ([facility]) 04/12/2018 Allergic rhinitis Arthritis Asthma Bronchitis Cancer ([facility]/HCC) ([facility]) skin Cervical cancer ([facility]) Chest pain COPD (chronic obstructive pulmonary disease) ([facility]) USE OXYGEN 3 L AT NIGHT DDD (degenerative disc disease), cervical Defect, retina, with detachment right DJD (degenerative joint disease), lumbar Emphysema lung ([facility]) Former smoker Hematuria SCHEDULED FOR THE PROCEDURE /SURGERY ON 02/11/2017 Hypokalemia Lung nodules Near syncope 09/19/2023 Osteoporosis Palpitations Pneumonia Recurrent major depression ([facility]) Sciatica Thoracic compression fracture (HCC) [...] not here- denies issues -denies assist status- COSMETICS AND TOILETRIES SALESPERSON ordered per MNT protocol , will initiate [...] (interosseous) Fluid Accumulation: No significant fluid accumulation Desk Pens Assembler Strength: na Associated Order(s): IP CONSULT [...] -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 -Computer Help Desk Representative would be helpful. -BMI 15.28 -Albumin-->3.0 -Monitor. [...] primary attending or other consultants, Electronic order manager of medications, tests or procedures, Obtaining and/or [...] detailed in the note above. Imelda Bernard, 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 - MOTION PICTURE SET GRIP Palliative Care Assessments: Goals of care: Continue Current Management, Live Longer, extend life as much as possible, Improve or Maintain Function/Quality of Life, Preserve [place]/Autonomy/Control, and Remain at Home Advanced Directives: DNR Functional Assessment: PPS 70% amb reduced; can't do normal work/some disease; full self care; normal or reduced intake; full LOC Prognosis: depends upon goals of care Spiritual Assessment: No spiritual distress identified Bereavement and Grief: To Be Determined PDMP/OARRS Reviewed: Yes-reviewed Social history: Marital status: Children: not addressed Living status: with daughter Work history: retired [place] status: No Voodoo sharla: None ROS: See palliative care ROS/ESAS below; All other systems were reviewed and are negative. [place] Symptom Assessment Score [place] Score Pain Score (if non-verbal, add .FLACC [...] BSO AND PELVIC LYMPH; DR. ZIYAD MENENDEZ [facility] OTHER SURGICAL HISTORY Left 12/19/2019 Med [...] EDT Associated Order(s): IP CONSULT TO GERIATRICS [facility] Geriatric Medicine Inpatient Consult [...] deficits. --Recommend outpatient follow up at [facility]) for more in depth [...] fracture, Vitamin D deficiency, anxiety, presented to [facility] on 07/30/24 with complaints of weight [...] memory issues for a year with progression. Winston she was managing her medications ok. Daughter [...] 350 ms QTC Interval 439 ms P [place] 53 degrees QRS [place] -35 degrees T Wave [place] 43 degrees [place] Interval 137 ms CBC auto differential Collection [...] Follow-up: will follow with you Saad Telles, DB - [place] 07/31/24 8:02 AM [1] Allergies [...] Lauren Serna MD, 3 mg at 07/31/24 0030 methylPREDNISolone sod suc (PF) (SOLU-Medrol) 40 MG injection 20 mg, 20 mg, IntraVENous, q12h, Lauren Serna MD, 20 mg at 07/31/24 0623 mirtazapine (Remeron) tablet 15 mg, 15 mg, Oral, Nightly, Laruen Serna MD, 15 mg at 07/31/24 003 [...] BSO AND PELVIC LYMPH; [facility] ZIYAD MENENDEZ [facility] OTHER SURGICAL HISTORY Left 12/19/2019 Med [...] start before November 09, 2022. 11/09/22 12/09/22 Dave Whipple DO PARoxetine (Paxil) 20 MG tablet [...] 09/19/2023 Osteoporosis Palpitations Pneumonia Recurrent major depression ([facility]) Sciatica Thoracic compression fracture ([facility]) Vitamin D deficiency [2] Past [...] Hx documented in this encounter [facility] 08-01-2024 Plan of care note Problem: Knowledge [...] needs are met Outcome: Progressing [facility] 07-31-2024 Note Formatting of this n ote might be different from the original. Art Critic following case for Discharge Needs. [facility] 07-31-2024 Note Formatting of this n ote might be different from the original. Art Critic following case for Discharge Needs. [facility] 07-31-2024 Consult note Associated Order (s): IP CONSULT TO DIETITIAN Images from the original note were not included. Nutrition Assessment Type and Reason for Visit: Initial, Consult (poor po - needs high calorie supplement) Nutrition Recommendations/Plan: Suggest to continue regular diet to promote intake. 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 -Computer Help Desk Representative would be helpful. -BMI 15.28 -Albumin-->3.0 -Monitor. [...] primary attending or other consultants, Electronic order manager of medications, tests or procedures, Obtaining and/or [...] on percocet chronically for years. [facility]. Would refer to home/OP [...] detailed in the note above. Imelda Bernard, 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 - MOTION PICTURE SET GRIP Palliative Care Assessments: Goals of care: Continue Current Management, Live Longer, extend life as much as possible, Improve or Maintain Function/Quality of Life, Preserve [place]/Autonomy/Control, and Remain at Home Advanced Directives: DNR Functional Assessment: PPS 70% amb reduced; can't do normal work/some disease; full self care; normal or reduced intake; full LOC Prognosis: depends upon goals of care Spiritual Assessment: No spiritual distress identified Bereavement and Grief: To Be Determined PDMP/OARRS Reviewed: Yes-reviewed Social history: Marital status: Children: not addressed Living status: with daughter Work history: retired [place] status: No Voodoo sharla: None ROS: See palliative care ROS/ESAS below; All other systems were reviewed and are negative. [place] Symptom Assessment Score [place] Score Pain Score (if non-verbal, add .FLACC [...] 09/19/2023 Osteoporosis Palpitations Pneumonia Recurrent major depression ([facility]) Sciatica Thoracic compression fracture ([facility]) Vitamin D deficiency [2] Past [...] at 08/01/2024 5:26 PM EDT [facility] 07-31-2024 Note Formatting of this n ote is different from the original. Images from the original note were not included. [facility] Palliative Care Transitions of Care Note Gonzalo Deluca : 1955 ADMIT DATE: 07/30/2024 DISCHARGE DATE: TBD PRIMARY CARE PHYSICIAN: HERMINIA CASE MD CODE STATUS: DNR-CCA DISCHARGE DIAGNOSES: Principal Problem: Adult failure to thrive HOSPITAL COURSE: Goals of care Gonzalo Deluca retains capacity for medical decision-making -legal surrogate decision maker is unknown, daughter listed in emergency contacts-->Karishma eDluca ( ) -Would encourage completion of HCPOA [...] short of breath when trying to eat. -Computer Help Desk Representative would be helpful. -BMI 15.28 -Albumin-->3.0 -Monitor. [...] Skilled Rehab Facility FACILITY/HOME CARE AGENCY NAME: [facility] Follow up with [facility] on office to call patient. [...] down the toilet or household disposal. SIGNED: Imelda Bernard, DB - MOTION PICTURE SET GRIP 08/03/2024, 10:20 AM [facility] 07-31-2024 Note Formatting of this n ote is different from the original. Images from the original note were not included. [facility] Palliative Care Transitions of Care [...] short of breath when trying to eat. -Computer Help Desk Representative would be helpful. -BMI 15.28 -Albumin-->3.0 -Monitor. [...] Skilled Rehab Facility FACILITY/HOME CARE AGENCY NAME: [facility] Follow up with [facility] on office to call patient. [...] SIGNED: DB Aggarwal CNP 08/03/2024, 10:20 AM T [facility] 07-31-2024 Note Formatting of this n ote [...] 93% on 5L last read [facility] 07-31-2024 Note Formatting of this n ote [...] 93% on 5L last read [facility] 07-31-2024 Consult note Associated Order (s): IP CONSULT TO GERIATRICS [facility] Geriatric Medicine Inpatient Consult [...] [facility] for more in depth [...] fracture, Vitamin D deficiency, anxiety, presented to [facility] on 07/30/24 with complaints of weight [...] memory issues for a year with progression. Winston she was managing her medications ok. Daughter [...] 350 ms QTC Interval 439 ms P [place] 53 degrees QRS [place] -35 degrees T Wave [place] 43 degrees [place] Interval 137 ms CBC auto differential Collection [...] Follow-up: will follow with you Saad Telles, DB - MOTION PICTURE SET GRIP 07/31/24 8:02 AM [1] Allergies Allergen Reactions [...] Lauren Serna MD, 15 mg at 07/31/24 0031 mometasone-formoterol (Dulera 200) 200-5 MCG/ACT inhaler 2 [...] major depression (HCC) Sciatica Thoracic compression fracture ([facility]) Vitamin D deficiency [4] Past Surgical History: Procedure Laterality Date CYSTOSCOPY 01/12/2017 OFFICE PROCEDURE CYSTOSCOPY 02/11/2017 C&P bladder biopsy EYE SURGERY detached retina 1994 HYSTERECTOMY 11/06/2019 ABDOMINAL RADICAL HYSTERECTOMY WITH BSO AND PELVIC LYMPH; DR[facility] ZIYAD MENENDEZ [facility] OTHER SURGICAL HISTORY Left 12/19/2019 Med Port POWER Regular Size OTHER SURGICAL HISTORY Left 11/07/2022 Percutaneous skeltal fixation femoral fracture TUBAL LIGATION 1992 [5] Family History Problem Relation Name Age of Onset Colon cancer Neg Hx Ovarian cancer Neg Hx Cancer Mother breast- to liver Cancer Sister breast Cancer Father lung to brain No Known Problems Brother Uterine cancer Neg Hx [facility] 07-31-2024 Consult note Associated Order [...] start before November 09, 2022. 11/09/22 12/09/22 Dave Whipple DO PARoxetine (Paxil) 20 MG tablet [...] Bronchitis Cancer (CMS/HCC) (HCC) skin Cervical cancer ([facility]) Chest pain COPD (chronic obstructive pulmonary disease) ([facility]) USE OXYGEN 3 L AT NIGHT DDD (degenerative disc disease), cervical Defect, retina, with detachment right DJD (degenerative joint disease), lumbar Emphysema lung (HCC) Former smoker Hematuria SCHEDULED FOR THE PROCEDURE /SURGERY ON 02/11/2017 Hypokalemia Lung nodules Near syncope 09/19/2023 Osteoporosis Palpitations Pneumonia Recurrent major depression ([facility]) Sciatica Thoracic compression fracture ([facility]) Vitamin D deficiency [2] Past Surgical History: Procedure Laterality Date CYSTOSCOPY 01/12/2017 OFFICE PROCEDURE CYSTOSCOPY 02/11/2017 C&P bladder biopsy EYE SURGERY detached retina 1994 HYSTERECTOMY 11/06/2019 ABDOMINAL RADICAL HYSTERECTOMY WITH BSO AND PELVIC LYMPH; DR. ZIYAD MENENDEZ [facility] OTHER SURGICAL HISTORY Left 12/19/2019 [...] Brother Uterine cancer Neg Hx [facility] 07-30-2024 History and physical note History and Physical [facility] Gonzalo Deluca : 1955 AGE [...] major depression (HCC) Sciatica Thoracic compression fracture ([facility]) Vitamin D deficiency Past Surgical [...] 07/30/2024 350 QTC Interval 07/30/2024 439 P [place] 07/30/2024 53 QRS [place] 07/30/2024 -35 T Wave [place] 07/30/2024 43 [place] Interval 07/30/2024 137 Auto WBC 07/30/2024 8.9 [...] QT Interval 350 QTC Interval 439 P [place] 53 QRS [place] -35 T Wave [place] 43 [place] Interval 137 Impression Sinus rhythm Left axis [...] placed in a splint. She has seen [facility] orthopedics in the past they will [...] Time spent on admission 07/30/2024 Gonzalo Deluca [id number] Any scheduled follow up appointments Future Appointments Date Time Provider Department Center 09/04/2024 2:30 PM [facility] 1 [facility] None Extended Emergency Contact Information Primary Emergency Contact: Karishma Deluca Address: [address] [place] [address] [facility] Mobile Relation: Daughter Secondary Emergency Contact: Jace Deluca Mobile Relation: Son Portions of this note may be electronically transcribed. Please forward a copy of this H&P to the primary care physician. [email or web address] Work Phone: 07-30-2024 Note [email or web address] [facility] 07-30-2024 History and physical note History and Physical [facility] Gonzalo Deluca : 1955 AGE [...] Chest pain COPD (chronic obstructive pulmonary disease) ([facility]) USE OXYGEN 3 L AT NIGHT DDD (degenerative disc disease), cervical Defect, retina, with detachment right DJD (degenerative joint disease), lumbar Emphysema lung ([facility]) Former smoker Hematuria SCHEDULED FOR THE PROCEDURE /SURGERY ON 02/11/2017 Hypokalemia Lung nodules Near syncope 09/19/2023 Osteoporosis Palpitations Pneumonia Recurrent major depression ([facility]) Sciatica Thoracic compression fracture ([facility]) Vitamin D deficiency Past Surgical [...] 07/30/2024 350 QTC Interval 07/30/2024 439 P [place] 07/30/2024 53 QRS [place] 07/30/2024 -35 T Wave [place] 07/30/2024 43 TN Interval 07/30/2024 137 Auto WBC 07/30/2024 8.9 [...] QT Interval 350 QTC Interval 439 P [place] 53 QRS [place] -35 T Wave [place] 43 TN Interval 137 Impression Sinus rhythm Left axis [...] placed in a splint. She has seen [facility] orthopedics in the past they will [...] Time spent on admission 07/30/2024 Gonzalo Deluca [id number] Any scheduled follow up appointments Future Appointments Date Time Provider Department Center 09/04/2024 2:30 PM [facility] 1 [facility] None Extended Emergency Contact Information Primary Emergency Contact: Karishma Deluca Address: [address] [place] [address] [place] [address] [facility] Mobile Relation: Daughter Secondary Emergency Contact: Jace Deluca Mobile Relation: Son Portions of this note may be electronically transcribed. Please forward a copy of this H&P to the primary care physician. documented in this encounter [facility] 07-30-2024 Emergency department Note Associated Order(s): Splint [...] Chest pain COPD (chronic obstructive pulmonary disease) ([facility]) USE OXYGEN 3 L AT NIGHT DDD (degenerative disc disease), cervical Defect, retina, with detachment right DJD (degenerative joint disease), lumbar Emphysema lung (HCC) Former smoker Hematuria SCHEDULED FOR THE PROCEDURE /SURGERY ON 02/11/2017 Hypokalemia Lung nodules Near syncope 09/19/2023 Osteoporosis Palpitations Pneumonia Recurrent major depression (HCC) Sciatica Thoracic compression fracture ([facility]) Vitamin D deficiency SURGICAL HISTORY Past Surgical History: Procedure Laterality Date CYSTOSCOPY 01/12/2017 OFFICE PROCEDURE CYSTOSCOPY 02/11/2017 C&P bladder biopsy EYE SURGERY detached retina 1994 HYSTERECTOMY 11/06/2019 ABDOMINAL RADICAL HYSTERECTOMY WITH BSO AND PELVIC LYMPH; DR[facility] ZIYAD MENENDEZ [facility] OTHER SURGICAL HISTORY Left 12/19/2019 Med [...] Low Risk (06/06/2024) Received from [facility] Overall Financial Resource Strain (CARDIA) Difficulty of Paying Living Expenses: Not very hard Food Insecurity: No Food Insecurity (06/06/2024) Received from [facility] Hunger Vital Sign Worried About Running Out of Food in the Last Year: Never true Ran Out of Food in the Last Year: Never true Transportation Needs: Unmet Transportation Needs (06/06/2024) Received from [facility] PRAPARE - Transportation Lack of Transportation (Medical): Yes Lack of Transportation (Non-Medical): No Physical Activity: Inactive (06/06/2024) Received from [facility] Exercise Vital Sign Days of Exercise per Week: 0 days Minutes of Exercise per Session: 0 min Stress: Stress Concern Present (06/06/2024) Received from [facility] [employer] [place] [employer] - Occupational Stress Questionnaire Feeling of Stress : To some extent Social Connections: Unknown (06/06/2024) Received from [facility] Social Connection and Isolation Panel [NHANES] Frequency of Communication with Friends and Family: Twice a week Frequency of Social Gatherings with Friends and Family: Never Attends Voodoo Services: Never Active Member of Clubs or [...] swelling Alternatives discussed: Delayed treatment and referral [place] protocol: Patient identity confirmed: Verbally with patient [...] Medicine Provider Luis E Keating DO 07/30/242152 documented in this encounter [facility] 07-30-2024 Physician Emergency department Note Associated Order(s): [...] 04/12/2018 Allergic rhinitis Arthritis Asthma Bronchitis Cancer ([facility] (HCC) skin Cervical cancer ([facility]) Chest pain COPD (chronic obstructive pulmonary disease) ([facility]) USE OXYGEN 3 L AT NIGHT DDD (degenerative disc disease), cervical Defect, retina, with detachment right DJD (degenerative joint disease), lumbar Emphysema lung ([facility]) Former smoker Hematuria SCHEDULED FOR THE PROCEDURE /SURGERY ON 02/11/2017 Hypokalemia Lung nodules Near syncope 09/19/2023 Osteoporosis Palpitations Pneumonia Recurrent major depression ([facility]) Sciatica Thoracic compression fracture ([facility]) Vitamin D deficiency SURGICAL HISTORY [...] Low Risk (06/06/2024) Received from [facility] Overall Financial Resource Strain (CARDIA) Difficulty of Paying Living Expenses: Not very hard Food Insecurity: No Food Insecurity (06/06/2024) Received from [facility] Hunger Vital Sign Worried About Running Out of Food in the Last Year: Never true Ran Out of Food in the Last Year: Never true Transportation Needs: Unmet Transportation Needs (06/06/2024) Received from [facility] PRAPARE - Transportation Lack of Transportation (Medical): Yes Lack of Transportation (Non-Medical): No Physical Activity: Inactive (06/06/2024) Received from [facility] Exercise Vital Sign Days of Exercise per Week: 0 days Minutes of Exercise per Session: 0 min Stress: Stress Concern Present (06/06/2024) Received from [facility] [employer] [place] [employer] - Occupational Stress Questionnaire Feeling of Stress : To some extent Social Connections: Unknown (06/06/2024) Received from [facility] Social Connection and Isolation Panel [NHANES] Frequency of Communication with Friends and Family: Twice a week Frequency of Social Gatherings with Friends and Family: Never Attends Voodoo Services: Never Active Member of Clubs or [...] swelling Alternatives discussed: Delayed treatment and referral [place] protocol: Patient identity confirmed: Verbally with patient [...] Medicine Provider Luis E Keating DO 07/30/242152 [facility] [employer] 07-30-2024 Note HNO ID: [id number] Author: HERMINIA CASE MD Service: ? Author Type: Physician Type: Progress Notes Filed: 07/30/2024 16:33 Note Text: 07/30/2024 Recording using Art[employer] software for draft documentation of the visit was discussed with the patient/authorized risk control representative; all questions welcomed and answered. Patient/authorized risk control representative agreed to proceed HPI: Gonzalo is [...] skin lesions. HEAD (more content not included)... [facility] 07-30-2024 History of Presen t illness Narrative 07/30/2024 Recording using [employer] software for draft documentation of the visit was discussed with the patient/authorized risk control representative; all questions welcomed and answered. Patient/authorized risk control representative agreed to proceed HPI: Gonzalo is [...] cardiac events. - Patient to go to [place] [facility] for stabilization of oxygen levels and [...] oxygenation. - Consideration for admission to a half-way facility for nutritional support and rehabilitation. - [...] MD documented in this encounter [facility] 07-23-2024 Telephone encounter Note Prescription [...] July 23, 2024 11:[address] [facility] 07-23-2024 Miscellaneous Notes Prescription Refill [...] AM documented in this encounter [facility] 07-02-2024 Telephone encounter Note Request completed and faxed. [facility] 07-02-2024 Miscellaneous Notes Request completed and faxed. Orders signed and in outbox. Please fax. Thank you, Leona Castañeda APRN.[employer] Type of letter/form/fax request - Assisted living orders Form received from [facility] on 06/29/24 floor and placed on MD desk () for completion. Completed form needs to be faxed to [phone]. Route to [place] when form completed for processing documented in this encounter [facility] 07-02-2024 Telephone encounter Note Orders signed and in outbox. Please fax. Thank you, Leona Castañeda APRN.[employer] [facility] Work Phone: 06-30-2024 Telephone encounter Note Type of letter/form/fax request - Assisted living orders Form received from [facility] on 06/29/24 floor and placed on MD desk () for completion. Completed form needs to be faxed to [phone]. Route to [place] when form completed for processing [facility] 06-26-2024 Telephone encounter Note Prescription Refill Information [...] Shay LPN June 26, 2024 9:32 AM [facility] 06-26-2024 Miscellaneous Notes Prescription Refill Information The [...] AM documented in this encounter [facility] 06-26-2024 Telephone encounter Note Prescription [...] June 26, 2024 8:[address] [facility] 06-26-2024 Miscellaneous Notes Prescription Refill [...] AM documented in this encounter [facility] 03-20-2025 Telephone encounter Note Herminia Case MD Thank you for the referral. Our first available date for a therapy start of care is 06/11/24. Please let us know if this is acceptable for you and the patient. Thank you , Maddi Valero LPN June 07, 2024 5:[address] [facility] Work Phone: 06-07-2024 Miscellaneous Notes Herminia Case MD Thank you for the referral. Our first available date for a therapy start of care is 06/11/24. Please let us know if this is acceptable for you and the patient. Thank you , Maddi Valero LPN June 07, 2024 5:05 PM documented in this encounter [facility] 06-06-2024 Telephone encounter Note Herminia Case MD Thank you for the referral for Gonzalo Deluca to receive home care services through [facility]. At this time, the office note is not yet completed for us to review for CMS guidelines. Please let us know once you have an opportunity to complete it so that we can review for CMS. Also, per CMS guidelines your office note needs to include a discussion of [facility] with the following: - why is HHC needed - why is the patient homebound - what is the diagnosis that [facility] is seeing the patient for. Thank you, Erna Diaz LPN [facility] Work Phone: 06-06-2024 Miscellaneous Notes Herminia Case MD Thank you for the referral for Gonzalo Deluca to receive home care services through [facility]. At this time, the office note is not yet completed for us to review for CMS guidelines. Please let us know once you have an opportunity to complete it so that we can review for CMS. Also, per [facility] guidelines your office note needs to include a discussion of HHC with the following: - why is HHC needed - why is the patient homebound - what is the diagnosis that HHC is seeing the patient for. Thank you, Erna Diaz LPN documented in this encounter [facility] 06-06-2024 Note HNO ID: [id number] Author: HERMINIA CASE MD Service: ? Author Type: Physician Type: Progress Notes Filed: 06/07/2024 16:23 Note Text: VIRTUAL VISIT PROGRESS NOTE This is a virtual visit using [employer] Video Visit. It required patient-provider interaction for the medical decision making as documented below. I have communicated my name and active licensure. The patient's identity and physical location were verified at the time of this visit. Either the patient or their legal risk control representative has been informed of the risks [...] major depressive di (more content not included)... [facility] 06-06-2024 History of Presen t illness Narrative VIRTUAL VISIT PROGRESS NOTE This is a virtual visit using [employer] Video Visit. It required patient-provider interaction for the medical decision making as documented below. I have communicated my name and active licensure. The patient's identity and physical location were verified at the time of this visit. Either the patient or their legal risk control representative has been informed of the risks [...] visit: Panlobular emphysema (HCC) - CONSULT TO [facility] AT HOME - pt cannot drive, has severe anxiety when leaving the house due to oxygen requirements, falls frequently, short of breath with exertion. Would benefit from home health for general strengthening to avoid falls, risk assessment of house, social work consultation for assistance in future medical terminologist placement. Moderate episode of recurrent major depressive disorder (HCC) - increase to 30 mg, mirtazapine (REMERON) 15 mg tablet; Take 2 tablet by mouth daily at bedtime. Chronic respiratory failure with hypoxia (HCC) - CONSULT TO [facility] AT HOME There are no Patient Instructions on file for this visit. Herminia Case MD documented in this encounter [facility] 05-26-2024 Telephone encounter Note Prescription [...] May 26, 2024 12:[address] [facility] 05-26-2024 Miscellaneous Notes Prescription Refill [...] PM documented in this encounter [facility] 05-22-2024 Note Patient Outreach (FA MDNA) GONZALO DELUCA ([id number]) 1955 F Date Time Provider Department 05/22/24 HERMINIA CASE During your visit today, we recorded the following information about you: Allergies As of Date: 05/22/2024 Noted Allergy Reaction SEASONAL ALLERGIES 08/16/2017 5 - Intolerance Date Reviewed: 12/30/2023 Reviewed by: Joaquina Martinez APRN.[employer] - Fully Assessed Visit Diagnosis:Encounter for screening mammogram for breast cancer [Z12.31] Order(s):[facility] SCREENING [facility] [[id number]] Order #: [id number] FUTURE Prescriptions as of 06/22/2024 - mirtazapine [...] Encounter Status:Closed by HUNTER, PRODUSER on 06/22/24 [facility] 05-09-2024 Telephone encounter Note Pt has refills on current prescription that should be available until end may. Thanks, Melva Juárez PA-C [facility] 05-09-2024 Miscellaneous Notes Pt has [...] AM documented in this encounter [facility] 05-09-2024 Telephone encounter Note Prescription [...] May 09, 2024 9:[address] [facility] 05-02-2024 Note HNO ID: [id number] Author: ?, ?, ? Service: ? Author Type: ? Type: Progress Notes Filed: 05/02/2024 18:24 Note Text: Pt got scheduled [facility] 05-02-2024 Note HNO ID: [id number] Author: ?, ?, ? Service: ? Author Type: ? Type: Progress Notes Filed: 05/02/2024 12:10 Note Text: Mc sent [facility] 05-02-2024 History of Presen t illness Narrative Mc sent VIRTUAL VISIT PROGRESS NOTE This is a virtual visit using [employer] Video Visit. It required patient-provider interaction for the medical decision making as documented below. I have communicated my name and active licensure. The patient's identity and physical location were verified at the time of this visit. Either the patient or their legal risk control representative has been informed of the risks [...] fall a few days ago, went to [facility] Doesn't recall how it happened, fell [...] MD documented in this encounter [facility] 05-02-2024 Note HNO ID: [id number] Author: HERMINIA CASE MD Service: ? Author Type: Physician Type: Progress Notes Filed: 05/02/2024 11:35 Note Text: VIRTUAL VISIT PROGRESS NOTE This is a virtual visit using [employer] Video Visit. It required patient-provider interaction for the medical decision making as documented below. I have communicated my name and active licensure. The patient's identity and physical location were verified at the time of this visit. Either the patient or their legal risk control representative has been informed of the risks [...] fall a few days ago, went to [facility] Doesn't recall how it happened, fell [...] OF SYSTEMS: GENERAL: (more content not included)... [facility] 05-01-2024 Telephone encounter Note Mc sent [facility] 05-01-2024 Miscellaneous Notes Mc sent [...] PM documented in this encounter [facility] 05-01-2024 Telephone encounter Note Needs appointment. [facility] 04-30-2024 Telephone encounter Note Prescription [...] April 30, 2024 6:[address] [facility] 04-27-2024 Emergency department Note Patient: [...] for clarification.) Flako Altamirano MD Acute Care [facility] CHIEF COMPLAINT Chief Complaint Patient presents [...] Chest pain COPD (chronic obstructive pulmonary disease) ([facility]) USE OXYGEN 3 L AT NIGHT DDD (degenerative disc disease), cervical Defect, retina, with detachment right DJD (degenerative joint disease), lumbar Emphysema lung ([facility]) Former smoker Hematuria SCHEDULED FOR THE PROCEDURE /SURGERY ON 02/11/2017 Hypokalemia Lung nodules Near syncope 09/19/2023 Osteoporosis Palpitations Pneumonia Recurrent major depression ([facility]) Sciatica Thoracic compression fracture ([facility]) Vitamin D deficiency SURGICAL HISTORY Past Surgical History: Procedure Laterality Date CYSTOSCOPY 01/12/2017 OFFICE PROCEDURE CYSTOSCOPY 02/11/2017 C&P bladder biopsy EYE SURGERY detached retina 1994 HYSTERECTOMY 11/06/2019 ABDOMINAL RADICAL HYSTERECTOMY WITH BSO AND PELVIC LYMPH; DR[facility] Z[facility]AD [facility]ENDEZ [facility] OTHER SURGICAL HISTORY Left 12/19/2019 Med [...] min Stress: No Stress Concern Present (09/19/2023) [employer] [place] [employer] - Occupational Stress Questionnaire Feeling of Stress : Only a little Social Connections: Socially Isolated (09/19/2023) Social Connection and Isolation Panel [NHANES] Frequency of Communication with Friends and Family: Three times a week Frequency of Social Gatherings with Friends and Family: Three times a week Attends Voodoo Services: Never Active Member of Clubs or [...] Homeless in the Last Year: No SCREENINGS [place] Coma Scale Best Eye Response: Spontaneous Best Verbal Response: Oriented Best Motor Response: Follows commands [place] Coma Scale Score: 15 PHYSICAL EXAM ED [...] mL (1,000 mL IntraVENous New Bag 04/27/24 1334) REVAL: MDM On reassessment I talked to [...] AM PATIENT REFERRED TO: Herminia Case MD [address] [place], [place] [id number] DISCHARGE MEDICATIONS: New Prescriptions No medications on [...] Medicine Provider Flako Altamirano MD 04/28/24 0112 Per ems, fall on carpeted floor. _ LOC but pt states she was dizzy and weak prior to fall. C/o L elbow and nose pain 2ndary fall documented in this encounter [facility] 04-27-2024 Emergency department Triage note Per ems, fall on carpeted floor. _ LOC but pt states she was dizzy and weak prior to fall. C/o L elbow and nose pain 2ndary fall [facility] 04-27-2024 Physician Emergency department Note Patient: Gonzalo [...] for clarification.) Flako Altamirano MD Acute Care [email or web address] CHIEF COMPLAINT Chief Complaint Patient presents with [...] Chest pain COPD (chronic obstructive pulmonary disease) ([facility]) USE OXYGEN 3 L AT NIGHT DDD (degenerative disc disease), cervical Defect, retina, with detachment right DJD (degenerative joint disease), lumbar Emphysema lung (HCC) Former smoker Hematuria SCHEDULED FOR THE PROCEDURE /SURGERY ON 02/11/2017 Hypokalemia Lung nodules Near syncope 09/19/2023 Osteoporosis Palpitations Pneumonia Recurrent major depression (HCC) Sciatica Thoracic compression fracture ([facility]) Vitamin D deficiency SURGICAL HISTORY Past Surgical History: Procedure Laterality Date CYSTOSCOPY 01/12/2017 OFFICE PROCEDURE CYSTOSCOPY 02/11/2017 C&P bladder biopsy EYE SURGERY detached retina 1994 HYSTERECTOMY 11/06/2019 ABDOMINAL RADICAL HYSTERECTOMY WITH BSO AND PELVIC LYMPH; [facility] Z[facility]AD [facility]Z [facility] OTHER SURGICAL HISTORY Left 12/19/2019 Med [...] min Stress: No Stress Concern Present (09/19/2023) [employer] [place] [employer] - Occupational Stress Questionnaire Feeling of Stress : Only a little Social Connections: Socially Isolated (09/19/2023) Social Connection and Isolation Panel [NHANES] Frequency of Communication with Friends and Family: Three times a week Frequency of Social Gatherings with Friends and Family: Three times a week Attends Voodoo Services: Never Active Member of Clubs or [...] Homeless in the Last Year: No SCREENINGS [place] Coma Scale Best Eye Response: Spontaneous Best Verbal Response: Oriented Best Motor Response: Follows commands [place] Coma Scale Score: 15 PHYSICAL EXAM ED [...] mL (1,000 mL IntraVENous New Bag 04/27/24 8793) REVAL: MDM On reassessment I talked to [...] AM PATIENT REFERRED TO: Herminia Case MD [address] [place] [id number] DISCHARGE MEDICATIONS: New Prescriptions No medications on [...] Medicine Provider Flako Altamirano MD 04/28/24 0112 [facility] 04-06-2024 Telephone encounter Note Prescription Refill [...] Weathers MA April 06, 2024 9:03 AM [facility] 04-06-2024 Miscellaneous Notes Prescription Refill [...] AM documented in this encounter [facility] 04-02-2024 Telephone encounter Note Pt has three refills available at the pharmacy. Melva Juárez PA-C [facility] 04-02-2024 Miscellaneous Notes Pt has three refills available at the pharmacy. Melva Juárez PA-C Pharmacy verified in [facility] Patient has been identified by name and [...] MA documented in this encounter [facility] 04-02-2024 Telephone encounter Note Pharmacy verified in [facility] Patient has been identified by name and [...] advise. Maria Alejandra Reno MA [facility] 04-02-2024 Miscellaneous Notes Pharmacy verified in [facility] Patient has been identified by name and [...] MA documented in this encounter [facility] 04-02-2024 Telephone encounter Note Pharmacy verified in [facility] Patient has been identified by name and [...] advise. Maria Alejandra Reno MA [facility] 03-20-2024 Telephone encounter Note Prescription Refill Information [...] Baltazar MA March 20, 2024 12:[address] [facility] 03-20-2024 Miscellaneous Notes Prescription Refill Information The [...] PM documented in this encounter [facility] 03-12-2024 Telephone encounter Note Pharmacy verified in [facility]. Patient has been identified by name and [...] Please advise. Rocio Westfall MA [facility] 03-12-2024 Miscellaneous Notes Pharmacy verified in [facility]. Patient has been identified by name and [...] MA documented in this encounter [facility] 03-09-2024 Telephone encounter Note Prescription [...] March 09, 2024 4:[address] [facility] 03-09-2024 Miscellaneous Notes Prescription Refill [...] PM documented in this encounter [facility] 03-05-2024 Telephone encounter Note Patient aware, will buy over the counter. Whit Shay LPN [facility] 03-05-2024 Miscellaneous Notes Patient aware, [...] LPN documented in this encounter [facility] 03-05-2024 Telephone encounter Note Pharmacy verified in [facility] Patient has been identified by name and [...] Please advise. Silvia Trejo MA [facility] 03-05-2024 Miscellaneous Notes Pharmacy verified in [facility] Patient has been identified by name and [...] MA documented in this encounter [facility] 03-02-2024 Telephone encounter Note LM for patient to call the office. Whit Shay LPN [facility] 03-01-2024 Telephone encounter Note Let patient know she can try looking for this available over the counter. Looks like she uses the diclofenac gel. [facility] 03-01-2024 Telephone encounter Note Per [facility], Diclofenac Sodium is on backorder unavailable. Please advise. Whit Shay LPN [facility] 02-07-2024 Telephone encounter Note Pharmacy verified in [facility] Patient has been identified by name and [...] 7.9 oz) Please advise. Silvia Trejo MA [facility] 02-07-2024 Miscellaneous Notes Pharmacy verified in [facility] Patient has been identified by name and [...] MA documented in this encounter [facility] 02-07-2024 Telephone encounter Note Prescription [...] February 07, 2024 11:[address] [facility] 02-07-2024 Miscellaneous Notes Prescription Refill [...] AM documented in this encounter [facility] 01-11-2024 Telephone encounter Note This was refilled earlier today. Melva Juárez PA-C [facility] 01-11-2024 Miscellaneous Notes This was [...] PM documented in this encounter [facility] 01-11-2024 Telephone encounter Note Prescription [...] January 11, 2024 2:[address] [facility] 01-10-2024 Telephone encounter Note Pharmacy verified in [facility]. Patient has been identified by name and [...] Please advise. Rocio Westfall MA [facility] 01-10-2024 Miscellaneous Notes Pharmacy verified in [facility]. Patient has been identified by name and [...] MA documented in this encounter [facility] 01-09-2024 Telephone encounter Note Pharmacy verified in [facility]. Patient has been identified by name and [...] Please advise. Rocio Westfall MA [facility] 01-09-2024 Miscellaneous Notes Pharmacy verified in [facility]. Patient has been identified by name and [...] MA documented in this encounter [facility] 01-09-2024 Telephone encounter Note Prescription [...] January 09, 2024 2:[address] [facility] 01-09-2024 Miscellaneous Notes Prescription Refill [...] PM documented in this encounter [facility] 01-09-2024 Telephone encounter Note Please review and advise. [facility] 01-09-2024 Miscellaneous Notes Please review and advise. documented in this encounter [facility] 01-09-2024 Telephone encounter Note Prescription [...] January 09, 2024 10:[address] [facility] 01-09-2024 Miscellaneous Notes Prescription Refill [...] AM documented in this encounter [facility] 12-30-2023 Note HNO ID: [id number] Author: JOAQUINA MARTINEZ APRN.[employer] Service: ? Author Type: Nurse Practitioner Type: Progress Notes Filed: 12/30/2023 13:47 Note Text: VIRTUAL VISIT PROGRESS NOTE This is a virtual visit using [employer] Zoom Video Visit. It required patient-provider interaction for the medical decision making as documented below. I have communicated my name and active licensure. The patient's identity and physical location were verified at the time of this visit. Either the patient or their legal risk control representative has been informed of the risks [...] on file for this visit. Joaquina Rao APRN.[facility] 12-30-2023 History of Presen t illness Narrative VIRTUAL VISIT PROGRESS NOTE This is a virtual visit using [employer] Zoom Video Visit. It required patient-provider interaction for the medical decision making as documented below. I have communicated my name and active licensure. The patient's identity and physical location were verified at the time of this visit. Either the patient or their legal risk control representative has been informed of the risks [...] on file for this visit. Joaquina Rao APRN.[employer] documented in this encounter [facility] 12-27-2023 Telephone encounter Note Request completed and faxed. [facility] 12-27-2023 Miscellaneous Notes Request completed and faxed. Type of letter/form/fax request - Home Health Care Orders Form received from [facility] on 12/26/23 floor and placed on MD desk () for completion. Completed form needs to be faxed to [phone]. Route to [place] when form completed for processing documented in this encounter [facility] 12-27-2023 Telephone encounter Note Type of letter/form/fax request - Home Health Care Orders Form received from [facility] on 12/26/23 floor and placed on MD desk () for completion. Completed form needs to be faxed to [phone]. Route to [place] when form completed for processing [facility] 12-27-2023 Telephone encounter Note Prescription [...] December 27, 2023 10:[address] [facility] 12-27-2023 Miscellaneous Notes Prescription Refill [...] AM documented in this encounter [facility] 12-14-2023 Telephone encounter Note Prescription [...] December 14, 2023 9:[address] [facility] 12-14-2023 Miscellaneous Notes Prescription Refill [...] AM documented in this encounter [facility] 12-14-2023 Telephone encounter Note Request completed and faxed. [facility] 12-14-2023 Miscellaneous Notes Request completed and faxed. Done. Type of letter/form/fax request - Home Health Care Orders Form received from [facility] on 12/12/23 floor and placed on MD desk () for completion. Completed form needs to be faxed to [phone]. Route to [place] when form completed for processing documented in this encounter [facility] 12-13-2023 Telephone encounter Note Done. [facility] 12-13-2023 Telephone encounter Note Type of letter/form/fax request - Home Health Care Orders Form received from [facility] on 12/12/23 floor and placed on MD desk () for completion. Completed form needs to be faxed to [phone]. Route to [place] when form completed for processing [facility] 12-08-2023 Telephone encounter Note Home care Certification Form 485 received from [facility]. For cert dates 11/25/23 to 01/23/24 that were signed on 12/06/23. Recertification Patient's home health 485 form / care plan for stated certification period reviewed and signed. Relevant medical records were reviewed. No changes were indicated [facility] 12-08-2023 Miscellaneous Notes Home care Certification Form 485 received from [facility]. For cert dates 11/25/23 to 01/23/24 that were signed on 12/06/23. Recertification Patient's home health 485 form / care plan for stated certification period reviewed and signed. Relevant medical records were reviewed. No changes were indicated documented in this encounter [facility] 12-06-2023 Telephone encounter Note Request completed and faxed. [facility] 12-06-2023 Miscellaneous Notes Request completed and faxed. Done. Type of letter/form/fax request - Home Health Care Orders Plan of Care Certification Period-11/25/23 to 01/23/24 Form received from [facility] on 12/01/23 floor and placed on MD desk () for completion. Completed form needs to be faxed to [phone]. Route to [place] when form completed for processing documented in this encounter [facility] 12-06-2023 Telephone encounter Note Done. [facility] 12-06-2023 Telephone encounter Note Type of letter/form/fax request - Home Health Care Orders Plan of Care Certification Period-11/25/23 to 01/23/24 Form received from [employer] on 12/01/23 floor and placed on desk () for completion. Completed form needs to be faxed to [phone]. Route to [place] when form completed for processing [facility] 11-28-2023 Telephone encounter Note Pharmacy verified in [facility] Patient has been identified by name and [...] Please advise. Silvia Trejo MA [facility] 11-28-2023 Miscellaneous Notes Pharmacy verified in [facility] Patient has been identified by name and [...] MA documented in this encounter [facility] 11-14-2023 Telephone encounter Note Pharmacy verified in [facility]. Patient has been identified by name and [...] Please advise. Rocio Westfall MA [facility] 11-14-2023 Miscellaneous Notes Pharmacy verified in [facility]. Patient has been identified by name and [...] MA documented in this encounter [facility] 11-14-2023 Telephone encounter Note Request completed and faxed. [facility] 11-14-2023 Miscellaneous Notes Request completed and faxed. Done. Type of letter/form/fax request - Home Health Care Orders Form received from [facility] on 11/13/23 floor and placed on MD desk () for completion. Completed form needs to be faxed to . Route to [place] when form completed for processing documented in this encounter [facility] 11-14-2023 Telephone encounter Note Done. [facility] 11-14-2023 Telephone encounter Note Type of letter/form/fax request - Home Health Care Orders Form received from [facility] on 11/13/23 floor and placed on MD desk () for completion. Completed form needs to be faxed to . Route to [place] when form completed for processing [facility] 11-12-2023 Telephone encounter Note Prescription [...] November 12, 2023 10:[address] [facility] 11-12-2023 Miscellaneous Notes Prescription Refill [...] AM documented in this encounter [facility] 11-02-2023 Telephone encounter Note Prescription [...] November 02, 2023 8:[address] [facility] 11-02-2023 Miscellaneous Notes Prescription Refill [...] AM documented in this encounter [facility] 10-28-2023 Telephone encounter Note Request completed and faxed. [facility] 10-28-2023 Miscellaneous Notes Request completed and faxed. Done. Type of letter/form/fax request - Home Health Care Orders Form received from [facility] on 10/27/23 floor and placed on MD desk () for completion. Completed form needs to be faxed to [phone]. Route to [place] when form completed for processing documented in this encounter [facility] 10-28-2023 Telephone encounter Note Done. [facility] 10-28-2023 Telephone encounter Note Type of letter/form/fax request - Home Health Care Orders Form received from [facility] on 10/27/23 floor and placed on MD desk () for completion. Completed form needs to be faxed to [phone]. Route to [place] when form completed for processing [facility] 10-24-2023 Telephone encounter Note Noted. Melva Juárez PA-C [facility] 10-24-2023 Miscellaneous Notes Noted. Melva Juárez PA-C Summary: Patient Update [facility] PT called to report that patient cancelled her PT appointment today. documented in this encounter [facility] 10-22-2023 Telephone encounter Note Summary: Patient Update [facility] PT called to report that patient cancelled her PT appointment today. [facility] 10-18-2023 Telephone encounter Note Request completed and faxed. [facility] 10-18-2023 Miscellaneous Notes Request completed and faxed. Type of letter/form/fax request - Home Health Care Orders Form received from [facility] on 10/18/23 floor and placed on desk () for completion. Completed form needs to be faxed to [phone]. Route to [place] when form completed for processing documented in this encounter [facility] 10-18-2023 Telephone encounter Note Type of letter/form/fax request - Home Health Care Orders Form received from [facility] on 10/18/23 floor and placed on MD desk () for completion. Completed form needs to be faxed to [phone]. Route to [place] when form completed for processing [facility] 10-16-2023 Hospital Discharg e instructions Janneth Hartley PA-C - 10/16/2023 9:52 PM EDT Continue take your home medications as prescribed, and use lidocaine patches. Do the incentive spirometer for 10 breaths every 2 hours while awake. Return to ER if experiencing any worsening symptoms The following attachments cannot be sent through Care Everywhere.Preventing Falls ED (Indian)Acute Pain, Adult (Indian)documented in this encounter [facility] 10-16-2023 Emergency department Note Emergency Department Encounter [facility] ED Patient: Gonzalo Deluca : 1955 [...] Chest pain COPD (chronic obstructive pulmonary disease) ([facility]) USE OXYGEN 3 L AT NIGHT DDD (degenerative disc disease), cervical Defect, retina, with detachment right DJD (degenerative joint disease), lumbar Emphysema lung ([facility]) Former smoker Hematuria SCHEDULED FOR THE PROCEDURE /SURGERY ON 02/11/2017 Hypokalemia Lung nodules Near syncope 09/19/2023 Osteoporosis Palpitations Pneumonia Recurrent major depression ([facility]) Sciatica Thoracic compression fracture ([facility]) Vitamin D deficiency Past Surgical [...] min Stress: No Stress Concern Present (09/19/2023) [employer] [place] [employer] - Occupational Stress Questionnaire Feeling of Stress : Only a little Social Connections: Socially Isolated (09/19/2023) Social Connection and Isolation Panel [NHANES] Frequency of Communication with Friends and Family: Three times a week Frequency of Social Gatherings with Friends and Family: Three times a week Attends Voodoo Services: Never Active Member of Clubs or [...] Department Physician in the absence of a travel service consultant. Please see Epiphany for interpretation of EKG. [...] PM PATIENT REFERRED TO: Herminia Case MD [address] [place] [id number] Call [facility] ED [address] [place] [phone] Go to If symptoms worsen DISCHARGE MEDICATIONS: New Prescriptions LIDOCAINE (LIDODERM) 5 % PATCH Apply 1 patch topically daily. Remove & discard patch within 12 hours or as directed by MD. METHOCARBAMOL (ROBAXIN) 500 MG TABLET Take 2 tablets (1,000 mg) by mouth every 8 hours as needed for muscle spasms for up to 10 days. Janneth Hartley PA-C [facility] Janneth Hartley PA-C 10/16/23 [id number] documented in this encounter [facility] 10-16-2023 Physician Emergency department Note Emergency Department Encounter [facility] ED Patient: Gonzalo Deluca : 1955 [...] Chest pain COPD (chronic obstructive pulmonary disease) ([facility]) USE OXYGEN 3 L AT [...] min Stress: No Stress Concern Present (09/19/2023) [employer] [employer] - Occupational Stress Questionnaire Feeling of Stress : Only a little Social Connections: Socially Isolated (09/19/2023) Social Connection and Isolation Panel [NHANES] Frequency of Communication with Friends and Family: Three times a week Frequency of Social Gatherings with Friends and Family: Three times a week Attends Voodoo Services: Never Active Member of Clubs or [...] Extract Unknown Physical Exam: ED Triage Vitals [10/16/23 1918] Temp Heart Rate Resp BP 36.5 C [...] Department Physician in the absence of a travel service consultant. Please see Anny for interpretation of EKG. Emergency Department Course [...] PM PATIENT REFERRED TO: Herminia Case MD [address] [place] [id number] Call [facility] ED [facility] [phone] Go to If symptoms worsen [...] PA-C [employer] Janneth Hartley PA-C 10/16/23 215 [facility] 10-11-2023 Telephone encounter Note Home care Certification Form 485 received from [facility]. For cert dates 09/26/23 to 11/24/23 that were signed on 10/11/23. New Certification Patient's home health 485 form / care plan for stated certification period reviewed and signed. Relevant medical records were reviewed. No changes were indicated [facility] 10-11-2023 Miscellaneous Notes Home care Certification Form 485 received from [facility]. For cert dates 09/26/23 to 11/24/23 that were signed on 10/11/23. New Certification Patient's home health 485 form / care plan for stated certification period reviewed and signed. Relevant medical records were reviewed. No changes were indicated documented in this encounter [facility] 10-11-2023 Telephone encounter Note Request completed and faxed. [facility] 10-11-2023 Miscellaneous Notes Request completed and faxed. Done. Type of letter/form/fax request - Home Health Care Orders Form received from [facility] on 10/06/23 floor and placed on MD desk () for completion. Completed form needs to be faxed to [phone]. Route to [place] when form completed for processing documented in this encounter [facility] 10-11-2023 Telephone encounter Note Done. [facility] 10-10-2023 Telephone encounter Note Type of letter/form/fax request - Home Health Care Orders Form received from [facility] on 10/06/23 floor and placed on MD desk () for completion. Completed form needs to be faxed to [phone]. Route to [place] when form completed for processing [facility] 10-06-2023 Note HNO ID: [id number] Author: LALA MOLINA LPN Service: ? Author Type: LICENSED NURSE Type: Progress Notes Filed: 10/06/2023 12:12 Note Text: This encounter was opened in error. [facility] 10-06-2023 History of Presen t illness Narrative This encounter was opened in error. documented in this encounter [facility] 10-06-2023 Telephone encounter Note [facility] is calling Herminia Case MD today to report patient's home health care physical therapy will be delayed a week as patient informed them that she is not feeling well.. Patient has been identified by name and birthdate. Duration of symptoms: N/A Person calling: caregiver: [facility] Call patient at: at home [phone] (home) [phone] (cell) Was an appointment scheduled: No Closing statement: Jessica Jay [facility] Work Phone: 10-06-2023 Miscellaneous Notes [facility] is calling Herminia Case MD today to report patient's home health care physical therapy will be delayed a week as patient informed them that she is not feeling well.. Patient has been identified by name and birthdate. Duration of symptoms: N/A Person calling: caregiver: [facility] Call patient at: at home [phone] (home) [phone] (cell) Was an appointment scheduled: No Closing statement: Jessica Jay documented in this encounter [facility] 09-22-2023 Miscellaneous Notes Patient Choice Patient Name: GONZALO DELUCA Date of : 1955 All Providers Sent Referral Name: [facility] Phone: [phone] Address: [address] [place] [address] The patient is Moderately Unstable - Medium risk of patient condition declining or worsening The patient's goals for the shift include rest The clinical goals for the shift include safety Received message from Reny Telles APRN. Daughter Karishma requesting information on resources available to receive additional help in the home. Placed call to [phone]. Left voice mail and return call back [...] PT recommends return home with home care. informatics physician liaison following. Currently on 3 liters oxygen; wears 2.5-3 liters at home. DC plan: home with daughter and home care [facility] following. Discharge Milestones and Delays Expected [...] to SN, PT services with [facility]. Care Types: [...] is noted as yes - consider a PIZZA HUT ASSISTANT evaluation once the patient returns home. START PATIENT REGISTRATION INFORMATION Order Information Order Signing Physician: Nickolas Marrero MD Service Ordered RN ?: Yes Service Ordered PT ?: Yes Service Ordered OT ?: No Service Ordered ST ?: No Service Ordered PIZZA HUT ASSISTANT?:No Service Ordered OIL WELL SERVICES DISPATCHER?: No Following Physician: HERMINIA CASE MD Following Physician Overseeing Physician: HERMINIA CASE MD (Required for Residents only) Agreeable to Follow? Yes Date/Time of Call 09/21/23 2:04 PM, Spoke with: yes per call back received from office . Care Coordination Same Day SOC?: No Primary Care Physician: HERMINIA CASE MD Primary Care Physician Primary Care Physician Address: [address] [place] [id number] Visit Instructions: N/A Service Discharge Location Type: Home with Home Health Care Service Facility Name: N/A Service Floor Facility: N/A Service Room No: N/A Demographics Patient Last Name: Yosi Patient First Name: Gonzalo Language/Communication Barrier: DAUGHTER KARISHMA IS CONTACT Service Address: [address] [place] [address] Service City: [facility] ST: [place] Service ZIP: [address] Service Other phone numbers: Telephone Information: Emergency Contact: Extended Emergency Contact Information Primary Emergency Contact: Karishma Deluca Address: [address] [place] [address] [place] [address] [facility] Relation: Daughter Secondary Emergency Contact: Jace Deluca Mobile Relation: Son Admission Information Admit Date: 09/19/2023 Patient status at discharge: Inpatient Admitting Diagnosis: Near syncope [R55] Closed head injury, initial encounter [S09.90XA] Fall, initial encounter [W19.XXXA] Compression fracture of T7 vertebra, initial encounter ([facility]) [S22.060A] Compression fracture of T8 vertebra, initial encounter ([facility]) [S22.060A] Compression fracture of T5 vertebra, initial encounter ([facility]) [S22.050A] Compression fracture of L1 vertebra, initial encounter ([facility]) [S32.010A] Caregiver Information Caregiver First Name: NA Caregiver Last Name: NA Caregiver Relationship to Patient NA Caregiver Phone Number: NA Caregiver Notes: N/A [employer] List No END PATIENT REGISTRATION INFORMATION Pt [...] Discharge Date: TBD Referral Source-PACC: (Hospital/Unit): [facility] / B2-261/B2-261 A End PACC Note The [...] Limits Permission given to speak with patient risk control representative/caregiver as indicated: Yes Confirmation of Payer with patient/family: Yes Payer Name: [facility] Dual Complete [place]: No Confirmation of Primary Care Physician: Confirmed [...] Living Prescription Coverage: Yes Pharmacy Used: [facility] in [place] Medication Management: Independent Transportation/Shopping: Transportation Mode: Car [...] to be discharged to: Home with possible [facility] Discharge Planning Actions: Continue to follow [...] home with possible HHC at this time. membership manager to follow and assist as needed. [...] . documented in this encounter [facility] 09-22-2023 Note Formatting of this n ote might be different from the original. Patient Choice Patient Name: GONZALO DELUCA Date of : 1955 All Providers Sent [facility] [place] [facility]: [phone] Address: [address] [place] [id number] [facility] 09-22-2023 Note Formatting of this n ote might be different from the original. Patient Choice Patient Name: GONZALO DELUCA Date of : 1955 All Providers Sent Referral Name: [facility] [place] Phone: [phone] Address: [address] [place] [id number] [facility] 09-22-2023 History of Presen t illness Narrative [...] major depression (HCC) Sciatica Thoracic compression fracture ([facility]) Vitamin D deficiency LABS: CBC: Recent Labs 09/19/23 1707 09/19/23 1754 09/20/23 0627 09/21/23 0427 WBC 19.5* -- 10.9* 9.4 RBC 4.18 -- 3.64* 3.51* HGB 12.7 13.4 11.0* 10.6* HCT 39.6 -- 34.8* 33.9* MCV 94.7 -- 95.6 96.6 RDW 13.0 -- 12.9 13.2 PLT 339 -- 243 217 BMP: Recent Labs 09/19/23 1707 09/20/23 0627 09/21/23 0427 NA 140 137 139 K 2.3* 3.1* 3.1* CL 93* 99 102 CO2 35* 33* 35* BUN 36* 28* 18* CREATININE 1.33* 0.73 0.49* GLUCOSE 99 94 97 CALCIUM 9.0 8.5 9.1 ANIONGAP 13 5 2* LIVER PROFILE: Recent Labs 09/19/23 170 AST [...] appreciated. -replace K - Pt/OT- Home with [facility]. - DC home tomorrow if OK with consults. - am labs, replace lytes prn - PT/OT/CM/SW - delirium precautions: increase activity - DVT prophylaxis: enoxaparin and encourage ambulation Advance Directive: Full Code Anticipated Discharge Extended Emergency Contact Information Primary Emergency Contact: Karishma Deluca Address: [address] [place] [address] [place] [address] [facility] Relation: Daughter Secondary Emergency Contact: Jace Deluca Mobile Relation: Son Nickolas Marrero MD Division of Hospitalist Medicine [facility] Images from the original note were not included. PHYSICAL THERAPY [facility] Initial Evaluation Name/MRN: Gonzalo Deluca ([id number]) Evaluation Date: 09/21/2023 Date of : 1955 Admission Date: 09/19/2023 4:29 PM Age: 67 y.o. Room/Bed: [facility] A Discharge Recommendation: Home with Home health [...] Chest pain COPD (chronic obstructive pulmonary disease) ([facility]) USE OXYGEN 3 L AT NIGHT DDD (degenerative disc disease), cervical Defect, retina, with detachment right DJD (degenerative joint disease), lumbar Emphysema lung ([facility]) Former smoker Hematuria SCHEDULED FOR THE PROCEDURE /SURGERY ON 02/11/2017 Hypokalemia Lung nodules Near syncope 09/19/2023 Osteoporosis Palpitations Pneumonia Recurrent major depression ([facility]) Sciatica Thoracic compression fracture ([facility]) Vitamin D deficiency Past Surgical [...] Problem List Diagnosis Date Noted Severe malnutrition ([facility]) ([facility]) 09/20/2023 Falls frequently 09/20/2023 Unintentional weight loss 09/20/2023 Debility 09/20/2023 PFO (patent foramen ovale) 09/20/2023 Lumbar compression fracture, closed, initial encounter ([facility]) 02/13/2023 Nondisplaced fracture of neck of left femur ([facility]) 11/06/2022 Other specified complication of vascular prosthetic devices, implants and grafts, initial encounter ([facility]) 08/06/2021 Poor venous access 12/19/2019 H/O: CVA (cerebrovascular accident) 12/14/2019 Malignant neoplasm of exocervix ([facility]) 11/07/2019 S/P hysterectomy 11/07/2019 PNA (pneumonia) 08/02/2019 Leukocytosis 04/13/2018 Shortness of breath 04/13/2018 DDD (degenerative disc disease), cervical 04/12/2018 Recurrent major depression ([facility]) 04/12/2018 Chronic back pain 04/10/2017 COPD (chronic obstructive pulmonary disease) ([facility]) 04/10/2017 Pulmonary nodule 04/10/2017 Sciatica [...] Responsibilities: Independent Receives Help From: Family Active Ibm Mainframe Developer: N/A Prior Level of Function ADL Assistance: [...] Mobility Raw Score (No Stairs) : 14 [facility] Plan Pt would benefit from skilled [...] of Care supervision is transferred to a [facility] Services Physical Therapist. Goals and/or treatment plan was established in collaboration with patient/family/other representatives. Images from the original note were not included. OCCUPATIONAL THERAPY [facility] Initial Evaluation Name/MRN: Gonzalo Deluca ([id number]) Evaluation Date: 09/21/2023 Date of : 1955 [...] Acute exacerbation of chronic obstructive pulmonary disease ([facility]) 04/12/2018 Allergic rhinitis Arthritis Asthma Bronchitis Cancer ([facility]) ([facility]) skin Cervical cancer ([facility]) ([facility]) Chest pain COPD (chronic obstructive pulmonary disease) ([facility]) USE OXYGEN 3 L AT NIGHT DDD (degenerative disc disease), cervical Defect, retina, with detachment right DJD (degenerative joint disease), lumbar Emphysema lung ([facility]) Former smoker Hematuria SCHEDULED FOR THE PROCEDURE /SURGERY ON 02/11/2017 Hypokalemia Lung nodules Near syncope 09/19/2023 Osteoporosis Palpitations Pneumonia Recurrent major depression ([facility]) Sciatica Thoracic compression fracture ([facility]) Vitamin D deficiency Past Surgical History: Past Surgical History: Procedure Laterality Date CYSTOSCOPY 01/12/2017 OFFICE PROCEDURE CYSTOSCOPY 02/11/2017 C&P bladder biopsy EYE SURGERY detached retina 1994 HYSTERECTOMY 11/06/2019 ABDOMINAL RADICAL HYSTERECTOMY WITH BSO AND PELVIC LYMPH; [facility] Z[facility]AD [facility]ENENDEZ [facility] OTHER SURGICAL HISTORY Left 12/19/2019 Med Port POWER Regular Size OTHER SURGICAL HISTORY Left 11/07/2022 Percutaneous skeltal fixation femoral fracture TUBAL LIGATION 1992 Admission Diagnosis: Patient Active Problem List Diagnosis Date Noted Severe malnutrition ([facility]) ([facility]) 09/20/2023 Falls frequently 09/20/2023 Unintentional weight loss 09/20/2023 Debility 09/20/2023 PFO (patent foramen ovale) 09/20/2023 Lumbar compression fracture, closed, initial encounter ([facility]) 02/13/2023 Nondisplaced fracture of neck of left femur ([facility]) 11/06/2022 Other specified complication of vascular prosthetic devices, implants and grafts, initial encounter ([facility]) 08/06/2021 Poor venous access 12/19/2019 H/O: CVA (cerebrovascular accident) 12/14/2019 Malignant neoplasm of exocervix ([facility]) 11/07/2019 S/P hysterectomy 11/07/2019 PNA (pneumonia) 08/02/2019 Leukocytosis 04/13/2018 Shortness of breath 04/13/2018 DDD (degenerative disc disease), cervical 04/12/2018 Recurrent major depression ([facility]) 04/12/2018 Chronic back pain 04/10/2017 COPD (chronic obstructive pulmonary disease) ([facility]) 04/10/2017 Pulmonary nodule 04/10/2017 Sciatica [...] Responsibilities: Independent Receives Help From: Family Active Ibm Mainframe Developer: N/A Prior Level of Function ADL Assistance: [...] 09/26/23 Therapy Time Individual Co-treatment Time In 906 Time Out 926 co-eval Minutes 20 Roopa oMre OT Patient's Occupational Therapy Plan of Care supervision is transferred to a [facility] Services Occupational Therapist. Goals and/or treatment plan was established in collaboration with patient/family/other representatives. [facility] Geriatric Medicine Inpatient Consult Service Admission Date: 09/19/2023 Assessment Principal Problem: Falls frequently Active Problems: Severe malnutrition (CMS/HCC) ([facility]) Unintentional weight loss Debility Chronic back pain COPD (chronic obstructive pulmonary disease) ([facility]) Supplemental oxygen dependent Plan Polypharmacy (History per [...] impairment --Recommend outpatient follow up at [facility] for more in depth [...] Vit D deficiency, Osteoporosis presented to [facility] on 09/19/23 for fall. Found to have [...] mg, 650 mg, Oral, TID, Saad Ezzie, 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 - MOTION PICTURE SET GRIP, 650 mg at 09/21/23 08 buPROPion XL (Wellbutrin XL) 24 hr tablet 150 mg, 150 mg, Oral, Daily, Lauren Serna MD, 150 mg at 09/21/23821 busPIRone (Buspar) tablet 15 mg, 15 mg, Oral, TID, Saad Haynese, 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 - MOTION PICTURE SET GRIP, 15 mg at 09/21/23821 calcitonin (Miacalcin) injection 50 Units, 50 Units, IntraMUSCular, Daily, Lauren Serna MD enoxaparin (Lovenox) syringe 40 mg, 40 mg, SubCUTAneous, Daily, Lauren Serna MD, 40 mg at 09/21/23821 lidocaine (LMX) 4 % cream, , Topical, PRN, Lauren Serna MD melatonin tablet 3 mg, 3 mg, Oral, Nightly PRN, Saad Ezzie, 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 - MOTION PICTURE SET GRIP, 3 mg at 09/20/232121 mirtazapine (Remeron) tablet 15 mg, 15 mg, Oral, Nightly, Saad Ezarianna 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 - MOTION PICTURE SET GRIP, 15 mg at 09/20/232122 mometasone-formoterol (Dulera 200) 200-5 MCG/ACT inhaler 2 puff, 2 puff, Inhalation, BID, Lauren Serna MD, 2 puff at 09/21/23 08 montelukast (Singulair) tablet 10 mg, 10 mg, Oral, Nightly, Luaren Serna MD, 10 mg at 09/20/232121 naloxone [...] mg, 30 mg, Oral, Daily, DB Merrill MOTION PICTURE SET GRIP, 30 mg at 09/21/23 0822 perflutren protein [...] 1.017 09/21/2023 Lab Results Component Value Date [id number] 735 09/21/2023 Lab Results Component Value Date [...] (gastrocnemius) Fluid Accumulation: No significant fluid accumulation Desk Pens Assembler Strength: Not Performed Nutrition Assessment: 66 [...] (kg): 52 kg Total Energy Requirements (kcals/day): 7508-3131 (28-35) Weight Used for Protein Requirements: Current [...] RD records) % Weight Change (Calculated): -8 Upper Tract Body Weight (lbs) (Calculated): 125 lbs Upper Tract Body Weight (Kg) (Calculated): 57 kg % Upper Tract Body Weight (Calculated): 92 % BMI (kg/m2) [...] Oral Nutrition Supplement Mara Corona RD Contact: *[phone] or via Secure Chat Hospitalist Progress Note [...] Chest pain COPD (chronic obstructive pulmonary disease) ([facility]) USE OXYGEN 3 L AT [...] Primary Emergency Contact: Karishma Deluca Address: [address] [place] [address] [place] [address] [facility] [place] Mobile Relation: Daughter Secondary Emergency Contact: Jace Deluca Mobile Relation: Son Nickolas Marrero MD Division of Hospitalist Medicine [facility] Images from the original note were not included. PHYSICAL THERAPY [facility] Name/MRN: Gonzalo Deluca ([id number]) Date: 09/20/2023 PT orders received and chart reviewed. Pt with multiple, severe compresssion fractures of the T and L spine. Ortho consulted. Will await Ortho POC prior to initiating therapy Oseas Lima PT Images from the original note were not included. OCCUPATIONAL THERAPY [facility] Name/MRN: Gonzalo Deluac ([id number]) Date: 09/20/2023 OT orders received and chart reviewed. Pt with multiple, severe compresssion fractures of the T and L spine. Ortho consulted. Will await Ortho POC prior to initiating therapy. Roopa More OT documented in this encounter [facility] 09-22-2023 Plan of care note The patient is Moderately Unstable - Medium risk of patient condition declining or worsening The patient's goals for the shift include rest The clinical goals for the shift include safety [facility] 09-21-2023 Telephone encounter Note Called and spoke with Vivian Ricks They just need to confirm Dr. Case will follow for For homecare They Don't need orders. Verbal given now. [facility] Work Phone: 09-21-2023 Miscellaneous Notes Called and spoke with Vivian Ricks They just need to confirm Dr. Case will follow for For homecare They Don't need orders. Verbal given now. Orders or will Dr. Case follow? She will follow. We don't typically give home care orders. Melva Juárez PA-C Ashley from [facility] Patient currently admitted for falls Need orders to follow for Home Care Call back number: [phone] documented in this encounter [facility] 09-21-2023 Hospital Discharg e instructions Freddy Black MD - 09/21/2023 4:28 PM EDT Images from the original note were not included. You have been evaluated in the hospital for a behavioral health problem. I recommend you contact the following mental health provider(s) to schedule an appointment as soon as possible: [x] [facility] (Psychiatry, Counseling,Addiction Services); [address], [address] [address]; [x] [facility]; (Psychiatry, Counseling, Addiction Services); [address], [facility] [address]; [x] [facility]; (Psychiatry, Counseling); [address] [place] [address]; [] [facility]; (Psychiatry, Counseling); [address], [address], [place] [address]; [] [facility]; (Psychiatry, Counseling); [address] [place] [address]; [] [facility]; (Psychiatry, Counseling); [address], [address], [place] [address]; [] [facility]; (Psychiatry, Counseling); [address], [address], [place] [address]; [x] [facility] (Psychiatry, Counseling, Case Management); [address] [place], [place] [address]; ; for initial assessments you may call or walk-in on Mondays and Tuesdays at 8:00 AM [] [facility] (Psychiatry, Counseling, Case Management); [address] [place] [address]; ; for initial assessments you may call or walk-in on at noon [] [facility] (Psychiatry, Counseling, Case Management); [address] [place] [address]; [x] [facility] (Psychiatry, Counseling, Case Management, Addiction Services); [address] [place] [address]; [x] [facility] (Psychiatry, Counseling, Case Management, Addiction Services); [address], [place] [address]; [x] [facility] (Psychiatry, Counseling, Case Management, Addiction Services); [address], [place] [address]; [] [facility] (Psychiatry, Counseling); [address] [place] [address]; [] [facility] (Psychiatry, Counseling, Case Management - has evening and weekend hours); [address] [place] [address]; If you or someone you know is struggling or in crisis, help is available. Call or text [facility] or chat [email or web address]. -OR- Call the [facility] Crisis Hotline at 256-560-5181 -OR- Visit [facility] Psychiatric Emergency Services, in person, at [address] [place] [address]; You should return to the Emergency Department or call 911 immediately if your symptoms worsen, new symptoms develop, or if you can no longer keep yourself or others safe. Roland Ortiz DO - 09/22/2023 12:54 PM EDT As tolerated Francesca Dee RN - 09/22/2023 1:35 PM EDT [...] Primary Emergency Contact: Karishma Deluca Address: [address] [place] [address] [place] [address] [place] [facility] [place] Mobile Relation: Daughter Secondary [...] prosthetic devices, implants and grafts, initial encounter ([facility]) Nondisplaced fracture of neck of left femur (HCC) Lumbar compression fracture, closed, initial encounter ([facility]) Severe malnutrition (CMS/HCC) (HCC) Unintentional weight loss Debility PFO (patent foramen ovale) Poor venous access Chronic back pain COPD (chronic obstructive pulmonary disease) ([facility]) Overview Signed 01/01/2022 6:48 AM by Interface, Incoming Problems- [facility] Conversion On home 3-4L NC DDD (degenerative disc disease), cervical Leukocytosis Malignant neoplasm of exocervix (HCC) Recurrent major depression ([facility]) Pulmonary nodule Overview Signed 01/01/2022 6:48 AM [...] (115 lb) Mental Status: {SHAMA Patient Mental Status:76643} IV Access: {SHAMA IV Access:24020} Nursing Mobility/ADLs: Walking {YANETH ADL:73770::"Independent"} Transfer {YANETH ADL:21418::"Independent"} Bathing {YANETH ADL:14310::"Independent"} Dressing {YANETH ADL:09385::"Independent"} Toileting {YANETH ADL:::"Independent"} Feeding {YANETH ADL:::"Independent"} User Experience Lead {YANETH ADL:::"Independent"} Med Delivery {yes/no:65418} Wound Care Documentation and Therapy: Wound/Incision 05/21/22 Traumatic Eye Right (Active) Number of days: 487 Wound/Incision 05/21/22 Traumatic Wrist Left;Posterior (Active) Number of days: 487 Wound/Incision 11/07/22 Incision Leg Anterior;Left;Proximal;Upper (Active) Number of days: 318 Elimination: Continence: Bowel: {yes/no:91033} Bladder: {yes/no:47166} Urinary Catheter: {SHAMA Urinary Catheter:02301} Colostomy/Ileostomy/Ileal Conduit: {YES / NO:} Date of Last BM: Intake/Output Summary (Last 24 hours) at 09/21/2023 1408 Last data filed at 09/21/2023 0218 Gross per 24 hour Intake -- Output 800 ml Net -800 ml I/O last 3 completed shifts: In: 752.1 (14.4 mL/kg) [I.V.:52.1 (1 mL/kg); IV Piggyback:700] Out: 800 (15.3 mL/kg) [Urine:800 (0.4 mL/kg/hr)] Weight: 52.2 kg Safety Concerns: {SHAMA Safety Concerns:56377} Impairments/Disabilities: {SHAMA Impairments/Disabilities:32519} Nutrition Therapy: Current Nutrition Therapy: {SHAMA Diet List:43268} Routes of Feeding: {routes of feedin} Liquids: {liquid consistency:87931} Daily Fluid Restriction: {daily fluid restriction:15097} Last Modified Barium Swallow with Video (Video Swallowing Test): {done not done:99260} Treatments at the Time of Hospital Discharge: Respiratory Treatments: Oxygen Therapy: {Therapy; copd oxygen:97450} Ventilator: {SHAMA Ventilator:66655} Rehab Therapies: {GEN THERAPY DISCIPLINE SCAL:1519523} Weight Bearing Status/Restrictions: {POD WEIGHT BEARIN} Other Medical Equipment (for information only, NOT a DME order): {Assistive Devices DME:35856} Other Treatments: Patient's personal belongings (please select all that are sent with patient): {SHAMA Patient Belongings:04772} RN SIGNATURE: {E-signature:12305} CASE MANAGEMENT/SOCIAL WORK SECTION Inpatient Status Date: Discharging to Facility/ Agency Name: [facility] Address: [address] [place] [address] \\ Dialysis Facility (if applicable) Name: Address: Dialysis Schedule: Phone: Fax: Credit Report Checker/External Grinder signature: {E-signature:02153} PHYSICIAN SECTION Name: Gonzalo Deluca Prognosis: {Rehab Prognosis:09681} Condition at Discharge: {Patient Condition:73076} Rehab Potential (if transferring to Rehab): {Rehab Prognosis:20620} Recommended Labs or Other Treatments After Discharge: The individual is being admitted to a nursing facility directly from an [facility] or a unit of a [facility] that is not operated by or licensed by [facility] under section 5119.14 or 5160-3-15.1 5 The individual requires the level of services provided by a nursing facility for the condition for which he or she was treated in the hospital and, Physician Certification: I certify the above information and transfer of Gonzalo Deluca is necessary for the continuing treatment of the diagnosis listed and that she requires {SHAMA Level of Care:71364} for {greater less than:94542} 30 days. Update Admission H&P: {SHAMA Changes in H&P:00716} PHYSICIAN SIGNATURE: {E-signature:13199} documented in this encounter [facility] 09-21-2023 Note Formatting of this n ote might be different from the original. Received message from Reny Telles APRN. Daughter Karishma requesting information on resources available to receive additional help in the home. Placed call to [phone]. Left voice mail and return call back number. [facility] is not here tomorrow -plan to return on Tuesday09/23/23. Made referral to [facility] per Reny Telles APRN. [facility] 09-21-2023 Note Formatting of this n ote might be different from the original. Received message from Reny Telles APRN. Daughter Karishma requesting information on resources available to receive additional help in the home. Placed call to [phone]. Left voice mail and return call back number. [facility] is not here tomorrow -plan to return on Tuesday09/23/23. Made referral to [facility] per Reny Telles APRN. 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 Initial presentation significant for hypokalemia and MARIA. [...] Acute exacerbation of chronic obstructive pulmonary disease ([facility]) 04/12/2018 Allergic rhinitis Arthritis Asthma Bronchitis [facility] ([facility]) skin Cervical cancer ([facility] ([facility]) Chest pain COPD (chronic obstructive pulmonary disease) ([facility]) USE OXYGEN 3 L AT NIGHT DDD (degenerative disc disease), cervical Defect, retina, with detachment right DJD (degenerative joint disease), lumbar Emphysema lung ([facility]) Former smoker Hematuria SCHEDULED FOR THE PROCEDURE /SURGERY ON 02/11/2017 Hypokalemia Lung nodules Near syncope 09/19/2023 Osteoporosis Palpitations Pneumonia Recurrent major depression ([facility]) Sciatica Thoracic compression fracture ([facility]) Vitamin D deficiency Past Surgical [...] 650 mg 650 mg Oral TID Saad Telles APRN - MOTION PICTURE SET GRIP 650 mg at 09/21/23 1339 buPROPion XL (Wellbutrin XL) 24 hr tablet 150 mg 150 mg Oral Daily Lauren Serna MD 150 mg at 09/21/23 0822 busPIRone (Buspar) tablet 15 mg 15 mg Oral TID Saad Ezarianna 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 - MOTION PICTURE SET GRIP 15 mg at 09/21/23 1340 calcitonin (Miacalcin) injection 50 Units 50 Units IntraMUSCular Daily Lauren Serna MD 50 Units at 09/21/23 1217 [START ON 09/22/2023] cholecalciferol (Vitamin D-3) tablet 1,000 Units 1,000 Units Oral Daily Saad Ezzie, 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 - MOTION PICTURE SET GRIP enoxaparin (Lovenox) syringe 40 mg 40 mg SubCUTAneous Daily Lauren Serna MD 40 mg at 09/21/23 0822 lidocaine (LMX) 4 % cream Topical PRN Lauren Serna MD melatonin tablet 3 mg 3 mg Oral Nightly Saad Ezzie, 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 - MOTION PICTURE SET GRIP mirtazapine (Remeron) tablet 15 mg 15 mg Oral Nightly Saad Ezzie, 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 - MOTION PICTURE SET GRIP 15 mg at 09/20/23 212 mometasone-formoterol (Dulera [...] mg 30 mg Oral Daily Saad Ezzie, 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 - MOTION PICTURE SET GRIP 30 mg at 09/21/23 0822 perflutren protein [...] tablet Oral Nightly Saad Telles APRN - [place] tiotropium (Spiriva Respimat) 2.5 MCG/ACT inhaler 2 [...] QT Interval 382 QTC Interval 446 P [place] 46 QRS [place] -35 T Wave [place] 147 TN Interval 142 Impression Sinus rhythm Nonspecific T abnormalities, lateral leads Compared to ECG 09/19/2023 17:01:12 T-wave abnormality now present Prolonged QT interval no longer present Electronically Signed On 09-21-2023 09:19:23 EDT by Dave Cao Labs: Recent Results (from the past [...] Significant recent weight loss, 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 Prolonged QT related to [...] primary team. 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 Initial presentation significant for hypokalemia and MARIA. [...] Allergic rhinitis Arthritis Asthma Bronchitis Cancer (CMS/HCC) ([facility]) skin Cervical cancer (CMS/HCC) ([facility]) Chest pain COPD (chronic obstructive pulmonary disease) ([facility]) USE OXYGEN 3 L AT NIGHT DDD (degenerative disc disease), cervical Defect, retina, with detachment right DJD (degenerative joint disease), lumbar Emphysema lung ([facility]) Former smoker Hematuria SCHEDULED FOR THE PROCEDURE /SURGERY ON 02/11/2017 Hypokalemia Lung nodules Near syncope 09/19/2023 Osteoporosis Palpitations Pneumonia Recurrent major depression ([facility]) Sciatica Thoracic compression fracture ([facility]) Vitamin D deficiency Past Surgical [...] 650 mg 650 mg Oral TID Saad Telles 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 - MOTION PICTURE SET GRIP 650 mg at 09/21/23 1339 buPROPion XL (Wellbutrin XL) 24 hr tablet 150 mg 150 mg Oral Daily Lauren Serna MD 150 mg at 09/21/23 0822 busPIRone (Buspar) tablet 15 mg 15 mg Oral TID Saad Ezzie, 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 - MOTION PICTURE SET GRIP 15 mg at 09/21/23 1340 calcitonin (Miacalcin) injection 50 Units 50 Units IntraMUSCular Daily Lauren Serna MD 50 Units at 09/21/23 1217 [START ON 09/22/2023] cholecalciferol (Vitamin D-3) tablet 1,000 Units 1,000 Units Oral Daily Saad Ezzie, 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 - MOTION PICTURE SET GRIP enoxaparin (Lovenox) syringe 40 mg 40 mg SubCUTAneous Daily Lauren Serna MD 40 mg at 09/21/23 0822 lidocaine (LMX) 4 % cream Topical PRN Lauren Serna MD melatonin tablet 3 mg 3 mg Oral Nightly Saad Ezzie, 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 - MOTION PICTURE SET GRIP mirtazapine (Remeron) tablet 15 mg 15 mg Oral Nightly Saad Ezzie, 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 - MOTION PICTURE SET GRIP 15 mg at 09/20/23 2123 mometasone-formoterol (Dulera [...] mg 30 mg Oral Daily DB Merrill MOTION PICTURE SET GRIP 30 mg at 09/21/23 0822 perflutren protein [...] QT Interval 382 QTC Interval 446 P [place] 46 QRS [place] -35 T Wave [place] 147 TN Interval 142 Impression Sinus rhythm Nonspecific T abnormalities, lateral leads Compared to ECG 09/19/2023 17:01:12 T-wave abnormality now present Prolonged QT interval no longer present Electronically Signed On 09-21-2023 09:19:23 EDT by Dave Cao Labs: Recent Results (from the past [...] Significant recent weight loss, 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 Prolonged QT related to [...] peripherally Associated Order(s): IP CONSULT TO GERIATRICS [facility] Geriatric Medicine Inpatient Consult [...] Vit D deficiency, Osteoporosis presented to [facility] on 09/19/23 for fall. Found to have [...] . Advance Care Planning Healthcare Power of Fire Lieutenant Marine: Unknown Financial Power of Fire Lieutenant Marine: Unknown Living Will:Unknown Code Status: Full Code [...] Chest pain COPD (chronic obstructive pulmonary disease) ([facility]) USE OXYGEN 3 L AT NIGHT DDD (degenerative disc disease), cervical Defect, retina, with detachment right DJD (degenerative joint disease), lumbar Emphysema lung ([facility]) Former smoker Hematuria SCHEDULED FOR THE PROCEDURE /SURGERY ON 02/11/2017 Hypokalemia Lung nodules Near syncope 09/19/2023 Osteoporosis Palpitations Pneumonia Recurrent major depression ([facility]) Sciatica Thoracic compression fracture ([facility]) Vitamin D deficiency Past Surgical History: Procedure Laterality Date CYSTOSCOPY 01/12/2017 OFFICE PROCEDURE CYSTOSCOPY 02/11/2017 C&P bladder biopsy EYE SURGERY detached retina 1994 HYSTERECTOMY 11/06/2019 ABDOMINAL RADICAL HYSTERECTOMY WITH BSO AND PELVIC LYMPH; DR. ZIYAD MENENDEZ [facility] OTHER SURGICAL HISTORY Left 12/19/2019 Med [...] 468 ms QTC Interval 594 ms P [place] 25 degrees QRS [place] -48 degrees T Wave [place] 0 degrees TN Interval 140 ms CBC auto differential Collection [...] 44.2 (L) >60.0 mL/min/1.73m*2 Blood gas, venous ([facility]) Collection Time: 09/19/23 5:54 [...] 382 ms QTC Interval 446 ms P [place] 46 degrees QRS [place] -35 degrees T Wave [place] 147 degrees TN Interval 142 ms Transthoracic echocardiogram (TTE) complete [...] Order(s): IP CONSULT TO CARDIOLOGY [facility] [place] [facility] Cardiology Consult Note Reason for Consult/Chief Complaint: "Syncope" Established travel service consultant: None History of Present Illness: Gonzalo Deluca [...] primary service arrange f/u with patient's outpatient travel service consultant 1-2 wks. [] Recommended; unable to arrange at this time, will arrange post-discharge [] Arranged as follows: If there are any questions/concerns, please contact the covering provider. If no answer by Secure Chat, please call the cardiology office to obtain appropriate covering ENTRY OPERATOR/physician. Medications: buPROPion XL, 150 mg, Oral, Daily [...] and well perfused Laboratory Tests: Recent Labs 09/19/23170609/20/23626 NA 140 137 K 2.3* 3.1* CL [...] Cancer (CMS/HCC) (HCC) skin Cervical cancer (CMS/HCC) ([facility]) Chest pain COPD (chronic obstructive pulmonary disease) (HCC) USE OXYGEN 3 L AT NIGHT DDD (degenerative disc disease), cervical Defect, retina, with detachment right DJD (degenerative joint disease), lumbar Emphysema lung ([facility]) Former smoker Hematuria SCHEDULED FOR THE PROCEDURE /SURGERY ON 02/11/2017 Hypokalemia Lung nodules Near syncope 09/19/2023 Osteoporosis Palpitations Pneumonia Recurrent major depression ([facility]) Sciatica Thoracic compression fracture ([facility]) Vitamin D deficiency Past Surgical [...] start before November 09, 2022. 11/09/22 12/09/22 Dave Whipple, DO tiotropium (Spiriva Respimat) 2.5 MCG/ACT [...] you. documented in this encounter [facility] 09-21-2023 Telephone encounter Note Orders or will Dr. Case follow? She will follow. We don't typically give home care orders. Melva Juárez PA-C [facility] 09-21-2023 Telephone encounter Note Ashley from [facility] Patient currently admitted for falls Need orders to follow for Home Care Call back number: [phone] [facility] 09-21-2023 Note Formatting of this n ote is different from the original. Images from the original note were not included. Care Management Progress Note Chart reviewed. Patient remains on 2 east for treatment of falls and lumbar compression. Has LSO brace at home (per Ortho notes). Geriatrics following. PT recommends return home with home care. informatics physician liaison following. Currently on 3 liters oxygen; [...] 2 GMLOS: No GMLOS Documented [facility] 09-21-2023 Note Formatting of this n ote is different from the original. Images from the original note were not included. Care Management Progress Note Chart reviewed. Patient remains on 2 east for treatment of falls and lumbar compression. Has LSO brace at home (per Ortho notes). Geriatrics following. PT recommends return home with home care. informatics physician liaison following. Currently on 3 liters oxygen; [...] Stay (Days): 2 GMLOS: No GMLOS Documented [email or web address] 09-21-2023 Note Formatting of this n ote is different from the original. Start PACC Note Home Health Referral Educated patient and daughter, Karishma, on Home Care and services available. Patient offered choice of available HHC and agreeable to SN, PT services with [email or web address] at [facility] - Home Care. Care Types: [...] is noted as yes - consider a PIZZA HUT ASSISTANT evaluation once the patient returns home. START PATIENT REGISTRATION INFORMATION Order Information Order Signing Physician: Nickolas Marrero MD Service Ordered RN ?: Yes Service Ordered PT ?: Yes Service Ordered OT ?: No Service Ordered ST ?: No Service Ordered PIZZA HUT ASSISTANT?:No Service Ordered OIL WELL SERVICES DISPATCHER?: No Following Physician: HERMINIA CASE MD Following Physician Overseeing Physician: HERMINIA CASE MD (Required for Residents only) Agreeable to Follow? Yes Date/Time of Call 09/21/23 2:04 PM, Spoke with: yes per call back received from office . Care Coordination Same Day SOC?: No Primary Care Physician: HERMINIA CASE MD Primary Care Physician Primary Care Physician Address: [address] [place] [id number] Visit Instructions: N/A Service Discharge Location Type: Home with Home Health Care Service Facility Name: N/A Service Floor Facility: N/A Service Room No: N/A Demographics Patient Last Name: Yosi Patient First Name: Gonzalo Language/Communication Barrier: DAUGHTER KARISHMA IS CONTACT Service Address: [address] [place] City: [facility] ST: [place] Service ZIP: [address] Service Other phone numbers: Telephone Information: Emergency Contact: Extended Emergency Contact Information Primary Emergency Contact: Karishma Deluca Address: [address] [place] [address] [facility] Relation: Daughter Secondary Emergency Contact: Jace Deluca Mobile Relation: Son Admission Information Admit Date: 09/19/2023 Patient status at discharge: Inpatient Admitting Diagnosis: Near syncope [R55] Closed head injury, initial encounter [S09.90XA] Fall, initial encounter [W19.XXXA] Compression fracture of T7 vertebra, initial encounter (HCC) [S22.060A] Compression fracture of T8 vertebra, initial encounter ([facility]) [S22.060A] Compression fracture of T5 vertebra, initial encounter ([facility]) [S22.050A] Compression fracture of L1 vertebra, initial encounter ([facility]) [S32.010A] Caregiver Information Caregiver First Name: NA Caregiver Last Name: NA Caregiver Relationship to Patient NA Caregiver Phone Number: NA Caregiver Notes: N/A Power [employer] List No END PATIENT REGISTRATION INFORMATION Pt [...] Discharge Date: TBD Referral Source-PACC: (Hospital/Unit): [facility] / B2-261/B2-261 A End PACC Note [facility] 09-21-2023 Note Formatting of this n ote is different from the original. Start PACC Note Home Health Referral Educated patient and daughter, Karishma, on Home Care and services available. Patient offered choice of available HHC and agreeable to SN, PT services with [facility] - Home Care. Care Types: [...] is noted as yes - consider a PIZZA HUT ASSISTANT evaluation once the patient returns home. START PATIENT REGISTRATION INFORMATION Order Information Order Signing Physician: Nickolas Marrero MD Service Ordered RN ?: Yes Service Ordered PT ?: Yes Service Ordered OT ?: No Service Ordered ST ?: No Service Ordered PIZZA HUT ASSISTANT?:No Service Ordered OIL WELL SERVICES DISPATCHER?: No Following Physician: HERMINIA CASE MD Following Physician Overseeing Physician: HERMINIA CASE MD (Required for Residents only) Agreeable to Follow? Yes Date/Time of Call 09/21/23 2:04 PM, Spoke with: yes per call back received from office . Care Coordination Same Day SOC?: No Primary Care Physician: HERMINIA CASE MD Primary Care Physician Primary Care Physician Address: [address] [place] [address] / [facility] [id number] Visit Instructions: N/A Service Discharge Location Type: Home with Home Health Care Service Facility Name: N/A Service Floor Facility: N/A Service Room No: N/A Demographics Patient Last Name: Yosi Patient First Name: Gonzalo Language/Communication Barrier: DAUGHTER KARISHMA IS CONTACT Service Address: [address] [place] [address] Service City: [facility] ST: [place] Service ZIP: [address] Service Other phone numbers: Telephone Information: Emergency Contact: Extended Emergency Contact Information Primary Emergency Contact: YosiKarishma Address: [address] [place] [address] [facility] Relation: Daughter Secondary Emergency Contact: Jace Deluca Mobile Relation: Son Admission Information Admit Date: 09/19/2023 Patient status at discharge: Inpatient Admitting Diagnosis: Near syncope [R55] Closed head injury, initial encounter [S09.90XA] Fall, initial encounter [W19.XXXA] Compression fracture of T7 vertebra, initial encounter ([facility]) [S22.060A] Compression fracture of T8 vertebra, initial encounter ([facility]) [S22.060A] Compression fracture of T5 vertebra, initial encounter ([facility]) [S22.050A] Compression fracture of L1 vertebra, initial encounter ([facility]) [S32.010A] Caregiver Information Caregiver First Name: NA Caregiver Last Name: NA Caregiver Relationship to Patient NA Caregiver Phone Number: NA Caregiver Notes: N/A Power [email or web address] List No END PATIENT REGISTRATION INFORMATION Pt [...] Discharge Date: TBD Referral Source-PACC: (Hospital/Unit): [facility] / B2-261/-261 A End PACC Note [facility] 09-21-2023 Plan of care note The patient is Moderately Unstable - Medium risk of patient condition declining or worsening The patient's goals for the shift include safety and comfort The clinical goals for the shift include safety [facility] 09-20-2023 Consult note Associated Order (s): IP CONSULT TO GERIATRICS [facility] Geriatric Medicine Inpatient Consult [...] Vit D deficiency, Osteoporosis presented to [facility] on 09/19/23 for fall. Found to have [...] . Advance Care Planning Healthcare Power of Fire Lieutenant Marine: Unknown Financial Power of Fire Lieutenant Marine: Unknown Living Will:Unknown Code Status: Full Code [...] Allergic rhinitis Arthritis Asthma Bronchitis Cancer (CMS/HCC) ([facility]) skin Cervical cancer (CMS/HCC) ([facility]) Chest pain COPD (chronic obstructive pulmonary disease) ([facility]) USE OXYGEN 3 L AT NIGHT DDD (degenerative disc disease), cervical Defect, retina, with detachment right DJD (degenerative joint disease), lumbar Emphysema lung ([facility]) Former smoker Hematuria SCHEDULED FOR THE PROCEDURE /SURGERY ON 02/11/2017 Hypokalemia Lung nodules Near syncope 09/19/2023 Osteoporosis Palpitations Pneumonia Recurrent major depression ([facility]) Sciatica Thoracic compression fracture ([facility]) Vitamin D deficiency Past Surgical [...] 468 ms QTC Interval 594 ms P [place] 25 degrees QRS [place] -48 degrees T Wave [place] 0 degrees [place] Interval 140 ms CBC auto differential Collection [...] 44.2 (L) >60.0 mL/min/1.73m*2 Blood gas, venous ([facility]) Collection Time: 09/19/23 5:54 [...] 382 ms QTC Interval 446 ms P [place] 46 degrees QRS [place] -35 degrees T Wave [place] 147 degrees TN Interval 142 ms Transthoracic echocardiogram (TTE) complete [...] Almeida CNP 09/20/23 4:58 PM [facility] 09-20-2023 Note Formatting of this n ote might be different from the original. Care Managment Initial Assessment Date: 09/20/2023 Patient Name: Gonzalo Deluca : 1955 Patient Information Source of Information: Patient Cognition/Language: WFL - Within Functional Limits Permission given to speak with patient risk control representative/caregiver as indicated: Yes Confirmation of Payer with patient/family: Yes Payer Name: [facility] Dual Complete [place]: No Confirmation of Primary Care Physician: Confirmed [...] Living Prescription Coverage: Yes Pharmacy Used: [facility] in [place] Medication Management: Independent Transportation/Shopping: Transportation Mode: Car [...] to be discharged to: Home with possible [facility] Discharge Planning Actions: Continue to follow [...] home with possible HHC at this time. membership manager to follow and assist as needed. Carolina Alvarez RN T [facility] 09-20-2023 Note Formatting of this n ote might be different from the original. Care Managment Initial Assessment Date: 09/20/2023 Patient Name: Gonzalo Deluca : 1955 Patient Information Source of Information: Patient Cognition/Language: WFL - Within Functional Limits Permission given to speak with patient risk control representative/caregiver as indicated: Yes Confirmation of Payer with patient/family: Yes Payer Name: [facility] Dual Complete : No Confirmation of [...] Prescription Coverage: Yes Pharmacy Used: [facility] in [place] Medication Management: Independent Transportation/Shopping: Transportation Mode: Car [...] home with possible HHC at this time. membership manager to follow and assist as needed. Carolina Alvarez RN [facility] 09-20-2023 Consult note Associated Order (s): IP CONSULT TO CARDIOLOGY [facility] [place] [facility] Cardiology Consult Note Reason for Consult/Chief Complaint: "Syncope" Established travel service consultant: None History of Present Illness: Gonzalo Deluca [...] primary service arrange f/u with patient's outpatient travel service consultant 1-2 wks. [] Recommended; unable to arrange at this time, will arrange post-discharge [] Arranged as follows: If there are any questions/concerns, please contact the covering provider. If no answer by Secure Chat, please call the cardiology office to obtain appropriate covering ENTRY OPERATOR/physician. Medications: buPROPion XL, 150 mg, Oral, Daily [...] DATE of SERVICE: 09/20/2023 T [facility] 09-20-2023 Consult note Associated Order (s): Inpatient [...] Allergic rhinitis Arthritis Asthma Bronchitis Cancer (CMS/HCC) ([facility]) skin Cervical cancer (CMS/HCC) ([facility]) Chest pain COPD (chronic obstructive pulmonary disease) ([facility]) USE OXYGEN 3 L AT NIGHT DDD (degenerative disc disease), cervical Defect, retina, with detachment right DJD (degenerative joint disease), lumbar Emphysema lung ([facility]) Former smoker Hematuria SCHEDULED FOR THE PROCEDURE /SURGERY ON 02/11/2017 Hypokalemia Lung nodules Near syncope 09/19/2023 Osteoporosis Palpitations Pneumonia Recurrent major depression ([facility]) Sciatica Thoracic compression fracture ([facility]) Vitamin D deficiency Past Surgical History Past Surgical History: Procedure Laterality Date CYSTOSCOPY 01/12/2017 OFFICE PROCEDURE CYSTOSCOPY 02/11/2017 C&P bladder biopsy EYE SURGERY detached retina 1994 HYSTERECTOMY 11/06/2019 ABDOMINAL RADICAL HYSTERECTOMY WITH BSO AND PELVIC LYMPH; DR[facility] ZI[facility]AD [facility]ENENDEZ [facility] OTHER SURGICAL HISTORY Left 12/19/2019 Med [...] start before November 09, 2022. 11/09/22 12/09/22 Dave Whipple, DO tiotropium (Spiriva Respimat) 2.5 MCG/ACT [...] the consult we will follow with you. [facility] 09-20-2023 Plan of care note Problem: [...] Recommendations to address these barriers include . [facility] 09-19-2023 Nurse Note Explained to patient about transfer to 261. Patient verbalized understanding. Report called to 2e rn. No further questions at present. Attempted to restart potassium. Patient c./o paon at iv site. Potassium slowed and arm raised. Patient transported with oxygen and transport monitor to room 261. [facility] 09-19-2023 Nurse Note Explained to patient about [...] available. documented in this encounter [facility] 09-19-2023 History and physical note Images from the original note were not included. History and Physical [facility] Gonzalo Deluca : 1955 AGE [...] on TueSep 19, 2023 6:48 PM (Active) Target Setter RES: Heydi Ceballos MD, starting on TueSep [...] Allergic rhinitis Arthritis Asthma Bronchitis Cancer (CMS/HCC) ([facility]) skin Cervical cancer (CMS/HCC) ([facility]) Chest pain COPD (chronic obstructive pulmonary disease) ([facility]) USE OXYGEN 3 L AT NIGHT DDD (degenerative disc disease), cervical Defect, retina, with detachment right DJD (degenerative joint disease), lumbar Emphysema lung ([facility]) Former smoker Hematuria SCHEDULED FOR THE PROCEDURE /SURGERY ON 02/11/2017 Hypokalemia Lung nodules Near syncope 09/19/2023 Osteoporosis Palpitations Pneumonia Recurrent major depression ([facility]) Sciatica Thoracic compression fracture ([facility]) Vitamin D deficiency She is [...] 09/19/2023 468 QTC Interval 09/19/2023 594 P [place] 09/19/2023 25 QRS [place] 09/19/2023 -48 T Wave [place] 09/19/2023 0 TN Interval 09/19/2023 140 Auto WBC 09/19/2023 19.5 [...] QT Interval 468 QTC Interval 594 P [place] 25 QRS [place] -48 T Wave [place] 0 TN Interval 140 Impression Sinus rhythm Inferior infarct, [...] will request orthopedics to see her as [facility] orthopedics has seen her in the [...] pharmacologic and mechanical contraindicated 09/19/2023 Gonzalo Deluca [id number] Any scheduled follow up appointments Extended Emergency Contact Information Primary Emergency Contact: Karishma Deluca Address: [address] [place] [address] [place] [address] [facility] Mobile Relation: Daughter Secondary Emergency Contact: Jace Deluca Mobile Relation: Son Portions of this note may be electronically transcribed. Please forward a copy of this H&P to the primary care physician. [facility] Work Phone: 09-19-2023 History and physical note Images from the original note were not included. History and Physical [facility] Gonzalo Deluca : 1955 AGE [...] on TueSep 19, 2023 6:48 PM (Active) Target Setter RES: Heydi Ceballos MD, starting on TueSep [...] Allergic rhinitis Arthritis Asthma Bronchitis Cancer (CMS/HCC) ([facility]) skin Cervical cancer (CMS/HCC) ([facility]) Chest pain COPD (chronic obstructive pulmonary disease) ([facility]) USE OXYGEN 3 L AT NIGHT DDD (degenerative disc disease), cervical Defect, retina, with detachment right DJD (degenerative joint disease), lumbar Emphysema lung ([facility]) Former smoker Hematuria SCHEDULED FOR THE PROCEDURE /SURGERY ON 02/11/2017 Hypokalemia Lung nodules Near syncope 09/19/2023 Osteoporosis Palpitations Pneumonia Recurrent major depression ([facility]) Sciatica Thoracic compression fracture ([facility]) Vitamin D deficiency She is [...] 09/19/2023 468 QTC Interval 09/19/2023 594 P [place] 09/19/2023 25 QRS [place] 09/19/2023 -48 T Wave [place] 09/19/2023 0 TN Interval 09/19/2023 140 Auto WBC 09/19/2023 19.5 [...] QT Interval 468 QTC Interval 594 P [place] 25 QRS [place] -48 T Wave [place] 0 TN Interval 140 Impression Sinus rhythm Inferior infarct, [...] will request orthopedics to see her as [facility] [facility] orthopedics has seen her in the [...] pharmacologic and mechanical contraindicated 09/19/2023 Gonzalo Deluca [id number] Any scheduled follow up appointments Extended Emergency Contact Information Primary Emergency Contact: Karsihma Deluca Address: [address] [place] [address] [place] [address] [facility] Relation: Daughter Secondary Emergency Contact: Jace Deluca Mobile Relation: Son Portions of this note may be electronically transcribed. Please forward a copy of this H&P to the primary care physician. documented in this encounter [facility] 09-19-2023 Nurse Note Patient arrived from er to room 463 bed 2. Patient is alert and oriented. Realized patient required private room bed coordinator notified. Will be transferred when bed available. [facility] 09-19-2023 Emergency department Note Floor advised of pt coming to floor. VERA Brown 09/19/231945 [facility] 09-19-2023 Emergency department Note Floor advised of [...] Chest pain COPD (chronic obstructive pulmonary disease) ([facility]) USE OXYGEN 3 L AT NIGHT DDD (degenerative disc disease), cervical Defect, retina, with detachment right DJD (degenerative joint disease), lumbar Emphysema lung (HCC) Former smoker Hematuria SCHEDULED FOR THE PROCEDURE /SURGERY ON 02/11/2017 Hypokalemia Lung nodules Near syncope 09/19/2023 Osteoporosis Palpitations Pneumonia Recurrent major depression (HCC) Sciatica Thoracic compression fracture ([facility]) Vitamin D deficiency SURGICAL HISTORY [...] Resource Strain: Low Risk (05/20/2023) Received from [facility] Overall Financial Resource Strain (CARDIA) Difficulty of Paying Living Expenses: Not very hard Food Insecurity: No Food Insecurity (05/20/2023) Received from [facility] Hunger Vital Sign Worried About Running Out of Food in the Last Year: Never true Ran Out of Food in the Last Year: Never true Transportation Needs: No Transportation Needs (05/20/2023) Received from [facility] PRAPARE - Transportation Lack of Transportation (Medical): No Lack of Transportation (Non-Medical): No Physical Activity: Inactive (05/20/2023) Received from [facility] Exercise Vital Sign Days of Exercise per Week: 0 days Minutes of Exercise per Session: 0 min Stress: Stress Concern Present (05/20/2023) Received from [facility] of Occupational Health - Occupational Stress Questionnaire Feeling of Stress : To some extent Social Connections: Unknown (05/20/2023) Received from [facility] Social Connection and Isolation Panel [NHANES] Frequency of Communication with Friends and Family: Twice a week Frequency of Social Gatherings with Friends and Family: Patient declined Attends Voodoo Services: Never Active Member of Clubs or Organizations: No Attends Club or Organization Meetings: Patient declined Marital Status: Intimate Partner Violence: Not At Risk (05/21/2022) Humiliation, Afraid, Rape, and Kick questionnaire Fear of Current or Ex-Partner: No Emotionally Abused: No Physically Abused: No Sexually Abused: No Housing Stability: Low Risk (05/20/2023) Received from [facility] Housing Stability Vital Sign Unable to Pay for Housing in the Last Year: No Number of Places Lived in the Last Year: 1 In the last 12 months, was there a time when you did not have a steady place to sleep or slept in a fpc (including now)?: No SCREENINGS PHYSICAL EXAM ED [...] me with my interpretation noted below in [facility]. Refer to [facility] for official interpretation. RADIOLOGY: Refer to [facility] below for my independent interpretation. Interpretation [...] Culture. Procedure Abnormality Status --------- ------ Complete Urinalysis[[id number]] Please view results for these tests on [...] Compression fracture of T5 vertebra, initial encounter ([facility]) Compression fracture of T7 vertebra, [...] Compression fracture of T5 vertebra, initial encounter ([facility]) 5. Compression fracture of T7 vertebra, initial encounter ([facility]) 6. Compression fracture of T8 vertebra, initial encounter ([facility]) 7. Compression fracture of L1 vertebra, initial encounter ([facility]) DISPOSITION Admit 09/19/2023 06:48:16 PM [...] Ceballos MD Resident 09/19/231907 Emergency Department Encounter [facility] ED Patient: Gonzalo Deluca : 1955 [...] for clarification.) Jono Weathers MD Acute Care [facility] Jono Weathers MD 09/19/23 190 documented in this encounter [facility] 09-19-2023 Emergency department Note Pt provided with a toni laurie and chicken salad sandwich. VERA Brown 09/19/23 1940 [facility] 09-19-2023 Emergency department Note Pt on 2lpm of oxygen. Pt 89% on room air. Oxygen increased to 3lpm. VERA Brown 09/19/23 1732 [facility] 09-19-2023 Emergency department Note Pt to radiology. VERA Brown 09/19/23 1711 [facility] 09-19-2023 Physician Emergency department Note EMERGENCY DEPARTMENT [...] test Allergic rhinitis Arthritis Asthma Bronchitis Cancer ([facility]) ([facility]) skin Cervical cancer ([facility]) ([facility]) Chest pain COPD (chronic obstructive pulmonary disease) ([facility]) USE OXYGEN 3 L AT NIGHT DDD (degenerative disc disease), cervical Defect, retina, with detachment right DJD (degenerative joint disease), lumbar Emphysema lung ([facility]) Former smoker Hematuria SCHEDULED FOR THE PROCEDURE /SURGERY ON 02/11/2017 Hypokalemia Lung nodules Near syncope 09/19/2023 Osteoporosis Palpitations Pneumonia Recurrent major depression ([facility]) Sciatica Thoracic compression fracture ([facility]) Vitamin D deficiency SURGICAL HISTORY [...] Resource Strain: Low Risk (05/20/2023) Received from [facility] Overall Financial Resource Strain (CARDIA) Difficulty of Paying Living Expenses: Not very hard Food Insecurity: No Food Insecurity (05/20/2023) Received from [facility] Hunger Vital Sign Worried About Running Out of Food in the Last Year: Never true Ran Out of Food in the Last Year: Never true Transportation Needs: No Transportation Needs (05/20/2023) Received from [facility] PRAPARE - Transportation Lack of Transportation (Medical): No Lack of Transportation (Non-Medical): No Physical Activity: Inactive (05/20/2023) Received from [facility] Exercise Vital Sign Days of Exercise per Week: 0 days Minutes of Exercise per Session: 0 min Stress: Stress Concern Present (05/20/2023) Received from [facility] of Occupational Health - Occupational Stress Questionnaire Feeling of Stress : To some extent Social Connections: Unknown (05/20/2023) Received from [facility] Social Connection and Isolation Panel [NHANES] Frequency of Communication with Friends and Family: Twice a week Frequency of Social Gatherings with Friends and Family: Patient declined Attends Voodoo Services: Never Active Member of Clubs or Organizations: No Attends Club or Organization Meetings: Patient declined Marital Status: Intimate Partner Violence: Not At Risk (05/21/2022) Humiliation, Afraid, Rape, and Kick questionnaire Fear of Current or Ex-Partner: No Emotionally Abused: No Physically Abused: No Sexually Abused: No Housing Stability: Low Risk (05/20/2023) Received from [facility] Housing Stability Vital Sign Unable to Pay for Housing in the Last Year: No Number of Places Lived in the Last Year: 1 In the last 12 months, was there a time when you did not have a steady place to sleep or slept in a fpc (including now)?: No SCREENINGS PHYSICAL EXAM ED [...] me with my interpretation noted below in [facility]. Refer to [facility] for official interpretation. RADIOLOGY: Refer to [facility] below for my independent interpretation. Interpretation [...] Culture. Procedure Abnormality Status --------- ------ Complete Urinalysis[[id number]] Please view results for these tests on [...] Compression fracture of T7 vertebra, initial encounter ([facility]) Compression fracture of T8 vertebra, initial encounter ([facility]) Compression fracture of L1 vertebra, initial encounter ([facility]) External records reviewed: Chronic conditions [...] Compression fracture of T5 vertebra, initial encounter ([facility]) 5. Compression fracture of T7 vertebra, initial encounter ([facility]) 6. Compression fracture of T8 vertebra, initial encounter ([facility]) 7. Compression fracture of L1 vertebra, initial encounter ([facility]) DISPOSITION Admit 09/19/2023 06:48:16 PM [...] Medicine Resident Heydi Ceballos MD Resident 09/19/231907 [facility] 09-19-2023 Physician Emergency department Note Emergency Department Encounter [facility] ED Patient: Gonzalo Deluca : 1955 [...] [employer] Jono Weathers MD 09/19/231903 [employer] Phone: 09-16-2023 Telephone encounter Note Prescription Refill [...] September 16, 2023 10:[address] [facility] 09-16-2023 Miscellaneous Notes Prescription Refill [...] AM documented in this encounter [facility] 09-15-2023 Telephone encounter Note Mychart sent [facility] 09-15-2023 Miscellaneous Notes Mychart sent [...] MA documented in this encounter [facility] 09-15-2023 Telephone encounter Note Schedule follow up appt with me for chronic pain [facility] 09-15-2023 Telephone encounter Note Pharmacy verified in [facility] Patient has been identified by name and [...] Please advise. Silvia Trejo MA [facility] 09-14-2023 Telephone encounter Note Prescription [...] September 14, 2023 10:[address] [facility] 09-14-2023 Miscellaneous Notes Prescription Refill [...] AM documented in this encounter [facility] 09-08-2023 Note HNO ID: [id number] Author: BARBI GOLDBERG MD Service: ? Author [...] PREDNISONE 10 MG TABLET Barbi Goldberg MD [facility] 09-08-2023 History of Presen t illness [...] 03/21/2023 documented in this encounter [facility] 09-08-2023 Note HNO ID: [id number] Author: TATE WEATHERS MA Service: ? Author Type: College Athlete Type: Progress Notes Filed: 09/08/2023 16:09 Note Text: Mammogram Screening Never done Colorectal Cancer Screening Never done RSV Vaccine(1 - 1-dose 60+ series) Never done Shingrix Vaccine(2 of 2) due on 12/06/2019 Bone Density Screening due on 2021 Lung Cancer Screening due on 10/14/2022 Covid-19 Vaccine( season) Never done Advance Directive Discussion due on 03/21/2023 [facility] 09-07-2023 Telephone encounter Note LM for patient letting her know we have not received the form from [employer]. Whit Shay LPN [facility] 09-07-2023 Miscellaneous Notes LM for patient letting her know we have not received the form from [employer]. Whit Shay LPN Gonzalo is calling Herminia Case MD today with concern regarding Electronic Communication (FAX from [place] [employer] is going to be coming over that needs to be faxed back to them ) Patient has been identified by name and birthdate. Duration of symptoms: N/A Person calling: self daughter: Karishma Call patient at: at home [phone] (home) [phone] (cell) Was an appointment scheduled: No Closing statement: Results or non-symptom based questions: Thank you for calling [facility], your call will be returned within the next business day. Lala Jay documented in this encounter [facility] 09-06-2023 Telephone encounter Note Gonzalo is calling Herminia Case MD today with concern regarding Electronic Communication (FAX from [place] [employer] is going to be coming over that needs to be faxed back to them ) Patient has been identified by name and birthdate. Duration of symptoms: N/A Person calling: self daughter: Karishma Call patient at: at home [phone] (home) [phone] (cell) Was an appointment scheduled: No Closing statement: Results or non-symptom based questions: Thank you for calling [facility], your call will be returned within the next business day. Lala Rosas Pss [facility] 08-22-2023 Telephone encounter Note Last appointment: 05/20/23 Next appointment: 08/24/23 Pharmacy verified in [facility]. Refill(s) requested: Requested Prescriptions Pending Prescriptions Disp Refills oxyCODONE-acetaminophen (PERCOCET) 5-325 mg tablet 120 tablet 0 Sig: Take 1 tablet by mouth every 6 hours as needed for pain for up to 30 days. Refused Prescriptions Disp Refills cyclobenzaprine (FLEXERIL) 5 mg tablet 30 tablet 2 Sig: Take 1 tablet by mouth every 12 hours. Order(s) pended. Please advise. Tate Weathers MA, SA[facility] [employer] [facility] 08-22-2023 Miscellaneous Notes Last appointment: 05/20/23 Next appointment: 08/24/23 Pharmacy verified in [facility]. Refill(s) requested: Requested Prescriptions Pending Prescriptions Disp Refills oxyCODONE-acetaminophen (PERCOCET) 5-325 mg tablet 120 tablet 0 Sig: Take 1 tablet by mouth every 6 hours as needed for pain for up to 30 days. Refused Prescriptions Disp Refills cyclobenzaprine (FLEXERIL) 5 mg tablet 30 tablet 2 Sig: Take 1 tablet by mouth every 12 hours. Order(s) pended. Please advise. Tate Weathers MA, [employer] documented in this encounter [facility] 08-05-2023 Telephone encounter Note Last appointment: 06/10/23 Next appointment: 08/16/23 Pharmacy verified in [facility]. Refill(s) requested: Requested Prescriptions Pending Prescriptions Disp Refills cyclobenzaprine (FLEXERIL) 5 mg tablet [Pharmacy Med Name: CYCLOBENZAPRINE 5 MG TABLET] 30 tablet 2 Sig: take 1 tablet by mouth twice a day as needed Order(s) pended. Please advise. Whit Shay LPN, CMA [facility] 08-05-2023 Miscellaneous Notes Last appointment: 06/10/23 Next appointment: 08/16/23 Pharmacy verified in [facility]. Refill(s) requested: Requested Prescriptions Pending Prescriptions Disp Refills cyclobenzaprine (FLEXERIL) 5 mg tablet [Pharmacy Med Name: CYCLOBENZAPRINE 5 MG TABLET] 30 tablet 2 Sig: take 1 tablet by mouth twice a day as needed Order(s) pended. Please advise. Whit Shay LPN, CMA documented in this encounter [facility] 07-23-2023 Telephone encounter Note Last appointment: 06/10/23 Next appointment: 08/03/23 Pharmacy verified in [facility]. Refill(s) requested: Requested Prescriptions Pending Prescriptions Disp Refills oxyCODONE-acetaminophen (PERCOCET) 5-325 mg tablet 120 tablet 0 Sig: Take 1 tablet by mouth every 6 hours as needed for pain for up to 30 days. Order(s) pended. Please advise. Whit Shay LPN, CMA [facility] 07-23-2023 Miscellaneous Notes Last appointment: 06/10/23 Next appointment: 08/03/23 Pharmacy verified in [facility]. Refill(s) requested: Requested Prescriptions Pending Prescriptions Disp Refills oxyCODONE-acetaminophen (PERCOCET) 5-325 mg tablet 120 tablet 0 Sig: Take 1 tablet by mouth every 6 hours as needed for pain for up to 30 days. Order(s) pended. Please advise. Whit Shay LPN, CMA documented in this encounter [facility] 07-20-2023 Telephone encounter Note Pharmacy [...] for: "B12" Please advise. Nicole Sabillon MA [facility] 07-20-2023 Miscellaneous Notes Pharmacy verified in [facility] Patient has been identified by name and [...] MA documented in this encounter [facility] 07-08-2023 Telephone encounter Note LM for patient to call the office. Whit Shay LPN [facility] 07-08-2023 Miscellaneous Notes LM for patient to call the office. Whit Shay LPN Rx sent for advair which is similar. Received fax from [employer], the Fluticasone-Vilanterol 200-25, is not covered by insurance. Please advise. Whit Shay LPN documented in this encounter [facility] 07-08-2023 Telephone encounter Note Rx sent for advair which is similar. [facility] 07-04-2023 Miscellaneous Notes Pharmacy verified in [facility] Patient has been identified by name and [...] MA documented in this encounter [facility] 06-30-2023 Telephone encounter Note Received fax from [facility], the Fluticasone-Vilanterol 200-25, is not covered by insurance. Please advise. Whit Shay LPN [facility] 06-28-2023 Miscellaneous Notes Last appointment: 06/10/23 Next appointment: 07/22/23 Pharmacy verified in [facility]. Refill(s) requested: Requested Prescriptions Pending Prescriptions Disp Refills fluticasone-vilanterol (BREO ELLIPTA) 200-25 mcg/dose inhaler 60 Each 5 Sig: Inhale 1 Inhalation as instructed once daily. Order(s) pended. Please advise. Whit Shay LPN, [employer] documented in this encounter [facility] 06-27-2023 Miscellaneous Notes Pharmacy verified in [facility] Patient has been identified by name and [...] MA documented in this encounter [facility] 06-24-2023 Miscellaneous Notes Last appointment: 06/10/23 Next appointment: 07/22/23 Pharmacy verified in [facility]. Refill(s) requested: Requested Prescriptions Pending Prescriptions Disp Refills busPIRone (BUSPAR) 15 mg tablet 90 tablet 0 Sig: Take 1 tablet by mouth three times a day. Order(s) pended. Please advise. Rayo Roman MA, [employer] documented in this encounter [facility] 06-11-2023 Miscellaneous Notes Last appointment: 06/10/23 Next appointment: 07/22/23 Pharmacy verified in [facility]. Refill(s) requested: Requested Prescriptions Pending Prescriptions Disp Refills cyclobenzaprine (FLEXERIL) 5 mg tablet [Pharmacy Med Name: CYCLOBENZAPRINE 5 MG TABLET] 30 tablet 2 Sig: take 1 tablet by mouth twice a day as needed Order(s) pended. Please advise. Whit Shay LPN, [employer] documented in this encounter [facility] 06-10-2023 History of Presen t illness Narrative VIRTUAL VISIT PROGRESS NOTE This is a virtual visit using [employer] Video Visit. It required patient-provider interaction for the medical decision making as documented below. I have communicated my name and active licensure. The patient's identity and physical location were verified at the time of this visit. Either the patient or their legal risk control representative has been informed of the risks [...] MD documented in this encounter [facility] 05-27-2023 Miscellaneous Notes Pharmacy verified [...] Ma documented in this encounter [facility] 05-26-2023 Miscellaneous Notes Last appointment: 05-20-23 Next appointment: 06-10-23 Pharmacy verified in [facility]. Refill(s) requested: Requested Prescriptions Pending Prescriptions Disp Refills busPIRone (BUSPAR) 15 mg tablet 90 tablet 0 Sig: Take 1 tablet by mouth three times a day. Order(s) pended. Please advise. Evangelina Baltazar MA, [facility] documented in this encounter [facility] 05-25-2023 Miscellaneous Notes Type of letter/form/fax request - orders Form received from [facility] Placed on desk () for completion. Completed form needs to be faxed to [phone]. Route to [place] when form completed for processing documented in this encounter [facility] 05-25-2023 Miscellaneous Notes Request completed and faxed to [phone] with confirmation of receipt. Placed on Whit TRIANA desk for filing Done. Type of letter/form/fax request - Home Health Care Orders Form received from [facility] on 05/18/23 floor and placed on desk () for completion. Completed form needs to be faxed to [phone]. Route to [place] when form completed for processing documented in this encounter [facility] 05-20-2023 History of Presen t illness Narrative VIRTUAL VISIT PROGRESS NOTE This is a virtual visit using [employer] Video Visit. It required patient-provider interaction for the medical decision making as documented below. I have communicated my name and active licensure. The patient's identity and physical location were verified at the time of this visit. Either the patient or their legal risk control representative has been informed of the risks [...] Diagnosis Date COPD (chronic obstructive pulmonary disease) ([facility]) DDD (degenerative disc disease), lumbar Encounter for [...] MD documented in this encounter [facility] 05-19-2023 Miscellaneous Notes Home care Certification Form 485 received from 05/18/23. For cert dates 05/11/23 to 07/09/23 that were signed on 05/18/23. Recertification Patient's home health 485 form / care plan for stated certification period reviewed and signed. Relevant medical records were reviewed. No changes were indicated documented in this encounter [facility] 05-18-2023 Miscellaneous Notes Request completed and faxed. Done. Type of letter/form/fax request - Home Health Care Orders Form received from [facility] on floor and placed on MD desk () for completion. Completed form needs to be faxed to [phone]. Route to [place] when form completed for processing documented in this encounter [facility] 05-09-2023 Miscellaneous Notes Request completed and faxed. Type of letter/form/fax request - Home Health Care Orders Form received from [facility] on 05/06/23 floor and placed on MD desk () for completion. Completed form needs to be faxed to [phone]. Route to [place] when form completed for processing documented in this encounter [facility] 05-02-2023 History of Presen t illness Narrative Patient presents with: Follow Up HPI: Gonzalo Deluca is a 67 year old female who presents to the office today for follow up. Anxiety - on paxil, switched from cymbalta to paxil. Chronic pain Left hip fracture - 10/2022 Compression fracture 01/2023 Went to rehab , then home right before [place] Back home currently, home nursing PT and [...] Devices, Implants and Grafts, Initial Encounter ([facility]) Pna (Pneumonia) Right Arm Weakness Poor Venous [...] 03/21/2023 documented in this encounter [facility] 05-02-2023 Instructions Whit Shay LPN - 05/02/2023 2:26 PM EST [facility] TEST INFORMATION [facility] HOURS: Lab is open: 7:30am to 5:00pm - , 7:30am to 4:00pm on Tue and 8am -12pm on Tue. The lab is located in [facility] on the first floor. There is a registration window at the lab, available 7 am to 3 pm Tuesday - Tuesday. If registration is unavailable at the lab, you may register at the patient registration office near the [facility]. SCHEDULING A LAB APPOINTMENT: Laboratory appointments are recommended.Walk ins are still accepted. Call [phone] or schedule via [employer] scheduling ticket. ROUTINE LAB ORDERS 60 days [...] REFILL REQUESTS Request prescription refills through your [employer] account or contact your Pharmacy. My Chart Schedule My Appointment enables you to view your established primary care provider's open schedule and book an appointment online in real-time. This feature is available in internal medicine, family medicine, or pediatrics at any of our [facility] locations and main campus. documented in this encounter [facility] 04-29-2023 Miscellaneous Notes Spoke to Amanda who states she has been seeing patient for a few months for palliative care. Discharged from facility about a month ago Fall and Hip fx Fall with femur fx On continuous O2 3.5L - COPD Clonazepam not reordered when she left facility - provider requesting OV Walking with walker [facility] home health care nurse also seeing pt. OV scheduled Tuesday Gonzalo is a patient of Herminia Case MD today NADEEM Patel from [facility] is calling to speak to the nurse to review medications. She has questions related to her anxiety and respiratory status. She stated it was not urgent but needs to speak to the nurse/provider today. Patient has been identified by name and birthdate. Closing statement: Symptom Call: Thank you for calling [facility], your call is very important. A nurse will call in approximately 2-4 hours during business hours. If this is an emergency, please contact 911. Tiara Jay documented in this encounter [facility] 04-27-2023 Miscellaneous Notes Please review and advise documented in this encounter [facility] 04-27-2023 Telephone encounter Note Patient cancelled 04-27 appointment via [employer] with the following: Reason for Cancellation: Patient: Lack of Transportation" LVM to r/s [facility] [employer] 04-27-2023 Miscellaneous Notes Patient cancelled 04-27 appointment via [employer]ang with the following: Reason for Cancellation: Patient: Lack of Transportation" LVM to r/s Patient cancelled 04-22 appointment via [employer] stating: Reason for Cancellation: Patient: Schedule Conflict" LVM for patient to call back and get r/s documented in this encounter [facility] 04-21-2023 Telephone encounter Note Patient cancelled 04-22 appointment via [employer] stating: Reason for Cancellation: Patient: Schedule Conflict" LVM for patient to call back and get r/s [facility] 04-21-2023 Miscellaneous Notes Request completed and faxed. Type of letter/form/fax request - Home Health Care Orders Form received from [facility] on 04/17/23 floor and placed on MD desk () for completion. Completed form needs to be faxed to [phone]. Route to OK when form completed for processing documented in this encounter [facility] 03-11-2023 History of Past i llness Narrative Problem Noted Date Diagnosed Date Resolved Date Chronic pain syndrome 03/11/20232022 Moderate malnutrition 01/22/20232022 COPD (chronic obstructive pu lmonary disease) with acute bronchitis (HCC) 02/02/2021 03/09/2023 Obesity, Class I, BMI 30-34.9 12/07/2018 03/11/2023 documented as of this encounter (statuses as of 04/22/2023) [facility]12-22-2023 History of Past illness Narrative* Problem Noted Date Diagnosed Date Resolved Date Chronic pain syndrome 03/11/20232022 Moderate malnutrition 01/22/20232022 COPD (chronic obstructive pu lmonary disease) with acute bronchitis (HCC) 02/02/2021 03/09/2023 Obesity, Class I, BMI 30-34.9 12/07/2018 03/11/2023 documented as of this encounter (statuses as of 04/28/2023) [facility]12[facility]-20[facility] History of Past illness Narrative* Problem Noted Date Diagnosed Date Resolved Date Chronic pain syndrome 03/11/20232022 Moderate malnutrition 01/22/20232022 COPD (chronic obstructive pu lmonary disease) with acute bronchitis (HCC) 02/02/2021 03/09/2023 Obesity, Class I, BMI 30-34.9 12/07/2018 03/11/2023 documented as of this encounter (statuses as of 05/03/2023) [facility] History of Past illness Narrative* Problem Noted Date Diagnosed Date Resolved Date Chronic pain syndrome 03/11/20232022 Moderate malnutrition 01/22/20232022 COPD (chronic obstructive pu lmonary disease) with acute bronchitis (HCC) 02/02/2021 03/09/2023 Obesity, Class I, BMI 30-34.9 12/07/2018 03/11/2023 documented as of this encounter (statuses as of 05/09/2023) [facility] History of Past illness Narrative* Problem Noted Date Diagnosed Date Resolved Date Chronic pain syndrome 03/11/20232022 Moderate malnutrition 01/22/20232022 COPD (chronic obstructive pu lmonary disease) with acute bronchitis (HCC) 02/02/2021 03/09/2023 Obesity, Class I, BMI 30-34.9 12/07/2018 03/11/2023 documented as of this encounter (statuses as of 05/18/2023) [facility] History of Past illness Narrative* Problem Noted Date Diagnosed Date Resolved Date Chronic pain syndrome 03/11/20232022 Moderate malnutrition 01/22/20232022 COPD (chronic obstructive pu lmonary disease) with acute bronchitis (HCC) 02/02/2021 03/09/2023 Malignant neoplasm of exocervix 11/07/2019 05/20/2023 Obesity, Class I, BMI 30-34.9 12/07/2018 03/11/2023 documented as of this encounter (statuses as of 05/20/2023) [facility] History of Past illness Narrative* Problem Noted Date Diagnosed Date Resolved Date Chronic pain syndrome 03/11/20232022 Moderate malnutrition 01/22/20232022 COPD (chronic obstructive pu lmonary disease) with acute bronchitis (HCC) 02/02/2021 03/09/2023 Malignant neoplasm of exocervix 11/07/2019 05/20/2023 Obesity, Class I, BMI 30-34.9 12/07/2018 03/11/2023 documented as of this encounter (statuses as of 05/21/2023) [facility] History of Past illness Narrative* Problem Noted Date Diagnosed Date Resolved Date Chronic pain syndrome 03/11/20232022 Moderate malnutrition 01/22/20232022 COPD (chronic obstructive pu lmonary disease) with acute bronchitis (HCC) 02/02/2021 03/09/2023 Malignant neoplasm of exocervix 11/07/2019 05/20/2023 Obesity, Class I, BMI 30-34.9 12/07/2018 03/11/2023 documented as of this encounter (statuses as of 05/24/2023) [facility] History of Past illness Narrative* Problem Noted Date Diagnosed Date Resolved Date Chronic pain syndrome 03/11/20232022 Moderate malnutrition 01/22/20232022 COPD (chronic obstructive pu lmonary disease) with acute bronchitis (HCC) 02/02/2021 03/09/2023 Malignant neoplasm of exocervix 11/07/2019 05/20/2023 Obesity, Class I, BMI 30-34.9 12/07/2018 03/11/2023 documented as of this encounter (statuses as of 05/26/2023) [facility] History of Past illness Narrative* Problem Noted Date Diagnosed Date Resolved Date Chronic pain syndrome 03/11/2023 12/22/ 2023 Moderate malnutrition 01/22/20232022 COPD (chronic obstructive pu lmonary disease) with acute bronchitis (HCC) 02/02/2021 03/09/2023 Malignant neoplasm of exocervix 11/07/2019 05/20/2023 Obesity, Class I, BMI 30-34.9 12/07/2018 03/11/2023 documented as of this encounter (statuses as of 05/26/2023) [facility] History of Past illness Narrative* Problem Noted Date Diagnosed Date Resolved Date Chronic pain syndrome 03/11/20232022 Moderate malnutrition 01/22/20232022 COPD (chronic obstructive pu lmonary disease) with acute bronchitis (HCC) 02/02/2021 03/09/2023 Malignant neoplasm of exocervix 11/07/2019 05/20/2023 Obesity, Class I, BMI 30-34.9 12/07/2018 03/11/2023 documented as of this encounter (statuses as of 05/27/2023) [facility] History of Past illness Narrative* Problem Noted Date Diagnosed Date Resolved Date Chronic pain syndrome 03/11/20232022 Moderate malnutrition 01/22/20232022 COPD (chronic obstructive pu lmonary disease) with acute bronchitis (HCC) 02/02/2021 03/09/2023 Malignant neoplasm of exocervix 11/07/2019 3 05/20/2023 Obesity, Class I, BMI 30-34.9 12/07/2018 03/11/2023 documented as of this encounter (statuses as of 05/27/2023) [facility] History of Past illness Narrative* Problem Noted Date Diagnosed Date Resolved Date Chronic pain syndrome 03/11/20232022 Moderate malnutrition 01/22/20232022 COPD (chronic obstructive pu lmonary disease) with acute bronchitis (HCC) 02/02/2021 03/09/2023 Malignant neoplasm of exocervix 11/07/2019 05/20/2023 Obesity, Class I, BMI 30-34.9 12/07/2018 03/11/2023 documented as of this encounter (statuses as of 06/11/2023) [facility] History of Past illness Narrative* Problem Noted Date Diagnosed Date Resolved Date Chronic pain syndrome 03/11/20232022 Moderate malnutrition 01/22/20232022 COPD (chronic obstructive pu lmonary disease) with acute bronchitis (HCC) 02/02/2021 03/09/2023 Malignant neoplasm of exocervix 11/07/2019 05/20/2023 Obesity, Class I, BMI 30-34.9 12/07/2018 03/11/2023 documented as of this encounter (statuses as of 06/24/2023) [facility] History of Past illness Narrative* Problem Noted Date Diagnosed Date Resolved Date Chronic pain syndrome 03/11/20232022 Moderate malnutrition 01/22/20232022 COPD (chronic obstructive pu lmonary disease) with acute bronchitis (HCC) 02/02/2021 03/09/2023 Malignant neoplasm of exocervix 11/07/2019 05/20/2023 Obesity, Class I, BMI 30-34.9 12/07/2018 03/11/2023 documented as of this encounter (statuses as of 06/27/2023) [facility] History of Past illness Narrative* Problem Noted Date Diagnosed Date Resolved Date Chronic pain syndrome 03/11/20232022 Moderate malnutrition 01/22/20232022 COPD (chronic obstructive pu lmonary disease) with acute bronchitis (HCC) 02/02/2021 03/09/2023 Malignant neoplasm of exocervix 11/07/2019 05/20/2023 Obesity, Class I, BMI 30-34.9 12/07/2018 03/11/2023 documented as of this encounter (statuses as of 06/27/2023) [facility] History of Past illness Narrative* Problem Noted Date Diagnosed Date Resolved Date Chronic pain syndrome 03/11/20232022 Moderate malnutrition 01/22/20232022 COPD (chronic obstructive pu lmonary disease) with acute bronchitis (HCC) 02/02/2021 03/09/2023 Malignant neoplasm of exocervix 11/07/2019 05/20/2023 Obesity, Class I, BMI 30-34.9 12/07/2018 03/11/2023 documented as of this encounter (statuses as of 06/30/2023) [facility] History of Past illness Narrative* Problem Noted Date Diagnosed Date Resolved Date Chronic pain syndrome 03/11/20232022 Moderate malnutrition 01/22/20232022 COPD (chronic obstructive pu lmonary disease) with acute bronchitis (HCC) 02/02/2021 03/09/2023 Malignant neoplasm of exocervix 11/07/2019 05/20/2023 Obesity, Class I, BMI 30-34.9 12/07/2018 03/11/2023 documented as of this encounter (statuses as of 07/05/2023) [facility] History of Past illness Narrative* Problem Noted Date Diagnosed Date Resolved Date Chronic pain syndrome 03/11/20232022 Moderate malnutrition 01/22/20232022 COPD (chronic obstructive pu lmonary disease) with acute bronchitis (HCC) 02/02/2021 03/09/2023 Malignant neoplasm of exocervix 11/07/2019 3 05/20/2023 Obesity, Class I, BMI 30-34.9 12/07/2018 03/11/2023 documented as of this encounter (statuses as of 07/05/2023) [facility] History of Past illness Narrative* Problem Noted Date Diagnosed Date Resolved Date Chronic pain syndrome 03/11/20232022 Moderate malnutrition 01/22/20232022 COPD (chronic obstructive pu lmonary disease) with acute bronchitis (HCC) 02/02/2021 03/09/2023 Malignant neoplasm of exocervix 11/07/2019 3 05/20/2023 Obesity, Class I, BMI 30-34.9 12/07/2018 03/11/2023 documented as of this encounter (statuses as of 07/08/2023) [facility]12[facility] Miscellaneous Notes* Telephone Encounter - Maria Alejandra Reno MA - 03/08/2023 8:34 AM EST Pharmacy verified in [facility] Patient has been identified by name and [...] Reno MA [facility] Miscellaneous Notes* Care Coordination - Unknown Case Management - 02/18/2023 4:02 PM EST Patient Choice Patient Name: GONZALO DELUCA Date of : 1955 All Providers Sent Referral Name: [facility] Phone: [phone] Address: [address] [place] [address] * Care Coordination - SATURNINO Garcia - 02/18/2023 2:19 PM EST S/W, follow up Patient discharged to [facility]. Transport set via [facility] at 430p. advisory intern provided with report number. I did visit patient in room to notify of transport at 430p. Patient noted she will inform her daughter. * Care Coordination - Nidia Barahona - 02/18/2023 1:34 PM EST Discharge med list transmitted to [facility] via [employer] per TCC request. 7000 was entered into [employer] [facility] for the SNF- Facility is aware. * Care Coordination - SATURNINO Garcia - 02/16/2023 1:48 PM EST S/W, transport Transport sheet placed in patient paper chart for [facility]. * Care Coordination - Jordana Lowe RN - 02/16/2023 11:18 AM EST Images from the original note were not included. Care Management Progress Note Remains in HICU due to lumbar fracture. Bone scan planned for 02/17. Ortho following. [facility] able to accept pt. SAW GRINDER tasked to initiate insurance auth. Await insurance approval. Insurance approval received. Attending, faustina, RN & SCHOOL NURSE notified. Pt to have bone scan tomorrowas [...] 02/15/2023 3:09 PM EST Referral placed to [facility] TCC request. Await review and response regarding ability to accept. TCC notified. * Care Coordination - Ping Lazo RN - 02/15/2023 2:44 PM EST Care Managment Initial Assessment Date: 02/15/2023 Patient Name: Gonzalo Deluca : 1955 Patient Information Source of Information: Patient Cognition/Language: WFL - Within Functional Limits Permission given to speak with patient risk control representative/caregiver as indicated: Yes (Karishma Raudelyahir dtr [phone]) Confirmation of Payer with patient/family: Yes Payer Name: [facility] Medicare : No Confirmation of Primary [...] Living Prescription Coverage: Yes Pharmacy Used: [facility] Medication Management: Independent Transportation/Shopping: Independent Transportation [...] SNF Discharge Planning Actions: Continue to follow, Prison Facility referral indicated [place] of choice: [place] of choice discussed, Choice list provided (emailed to [email or web address]) Patient's Choice Rights and [employer] and Collaborative Relationships Disclosed as Indicated for Post-Acute Care: Yes Interdisciplinary Team Engagement: PT/OT Social Work Referral for: Additional Information: [facility] treatment of of Lumbar compression fracture. PT/OT recommends SNF. Spoke with patient over the phone. Explained role. Lives w/ daughter in two story home. Independentwith adls. Daughter and Son drives. +PCP, +RX cov, +DME, home oxygen. Discussed SNF. Emailed list to [email or web address]. She did inform me she was at [facility] and would be agreeable to go back there. SAW GRINDER tasked to make referral to [facility]. Did explained will need to confirm bedavailability and obtain insurance authorization. She demonstrates understanding. DCP: SNF, referral to [facility]. Other choices pending. Ping Lazo RN * Home Care - Deanna Romero LPN - 02/14/2023 8:50 AM EST Patient is currently active with [email or web address]. The patients current certification period will on 03/28/23. The patient is currently receiving PT services through the agency. [employer] to continue to follow. documented in this [facility]12-01-2023 Note* Care Coordination - Unknown Case Management - 02/18/2023 4:02 PM EST Patient Choice Patient Name: GONZALO DELUCA Date of : 1955 All Providers Sent [facility] Phone: [phone] Address: [address] [place] [id number] [place] [id number] Note* Care Coordination - Unknown Case Management - 02/18/2023 4:02 PM EST Patient Choice Patient Name: GONZALO DELUCA Date of : 1955 All Providers Sent Referral [facility]: [facility] Phone: [phone] Address: [facility] [place] [address] [place] [id number] Note* Care Coordination - SATURNINO Garcia - 02/18/2023 2:19 PM EST S/W, follow up Patient discharged to [facility]. Transport set via [facility] at 430p. advisory intern provided with report number. I did visit patient in room to notify of transport at 430p. Patient noted she will inform her daughter. [place] [id number] Note* Care Coordination - SATURNINO Garcia - 02/18/2023 2:19 PM EST S/W, follow up Patient discharged to [facility]. Transport set via [facility] at 430p. advisory intern provided with report number. I did visit patient in room to notify of transport at 430p. Patient noted she will inform her daughter. [id number]* Care Coordination - Nidia Barahona - 02/18/2023 1:34 PM EST Discharge med list transmitted to [facility] via [facility]port per TCC request. 7000 was entered into [employer] for the [facility] Facility is aware. [facility] [id number] Note* Care Coordination - Nidia Barahona - 02/18/2023 1:34 PM EST Discharge med list transmitted to [facility] via [employer] per TCC request. 7000 was entered into [employer] for the [facility] Facility is aware. [facility] [id number] Hospital Discharge instructions* Discharge Instr - Activity* [...] Extended Emergency Contact Information Primary Emergency Contact: Karsihma Deluca Address: [address] [place] [address] [place] [address] [facility] Relation: Daughter Secondary Emergency Contact: Jace Deluca Mobile Relation: Son Past Surgical History: Past Surgical History: Procedure Laterality Date CYSTOSCOPY 01/12/2017 OFFICE PROCEDURE CYSTOSCOPY 02/11/2017 C&P bladder biopsy EYE SURGERY detached retina 1994 HYSTERECTOMY 11/06/2019 ABDOMINAL RADICAL HYSTERECTOMY WITH BSO AND PELVIC LYMPH; DR. ZIYAD MENENDEZ [facility] OTHER SURGICAL HISTORY Left 12/19/2019 [...] (135 lb) Mental Status: {SHAMA Patient Mental Status:09569} IV Access: SHAMA IV Access: None Nursing Mobility/ADLs: Walking Minimal assistance Transfer Minimal assistance Bathing Minimal assistance Dressing Minimal assistance Toileting Minimal assistance Feeding Independent User Experience Lead Independent Med Delivery no Wound Care Documentation [...] Assessment Score: @READMISSIONRISKDETAILS@ Discharging to Facility/ Agency [facility] Care Address: [address] [place] [address] Dialysis Facility (if applicable) Name: Address: Dialysis Schedule: Phone: Fax: Credit Report Checker/External Grinder signature: ICIAN SECTION Prognosis: fair Condition at Discharge: stable Rehab Potential (if transferring to Rehab): good Recommended Labs or Other Treatments After Discharge: cbc and Bmp in 3 days Physician Certification: I certify the above information and transfer of Gonzalo Deluca is necessary for the continuing treatment of the diagnosis listed and that she requires half-way facility for less than 30 days. Update Admission H&P: No change in H&P PHYSICIAN SIGNATURE: * Additional Instructions* Earlene Echavarria MD - 02/18/2023 1:11 PM EST BONe scan with compression fracture, and brace given, also shows rib fractures. Follow up with Dr. Frank CBC and BMP in 3 days documented in this [facility]12-01-2023 History of Present illness Narrative* Yesenia Salas RCP - 02/18/2023 11:45 AM EST [facility] Respiratory Care Department Progress Note As [...] from the original note were not included. [phone]: Please page me ([phone]) for patient care issues. [phone]: Please page [facility] Hospitalist for any issues. Subjective: Admit Date: 02/13/2023 PCP: HERMINIA CASE MD Room#: 232-08/232-08 Norma Deluca is a 67 y.o. female who presents with Lumbar compression fracture, closed, initial encounter ([facility]) Interval History: Claims that back [...] was a tentative plan of discharge to half-way facility today but discharge was held because [...] Primary Emergency Contact: Karishma Deluca Address: [address] [place] [address] [place] [address] [facility] Relation: Daughter Secondary Emergency Contact: Jace Deluca [place] Relation: Son Advance Directive: Full Code Discharge planning: TBD Earlene Echavarria MD Division of Hospitalist Medicine Inpatient Medical Services/[facility] * Oseas Lima PT - 02/17/2023 11:39 AM EST Images from the original note were not included. PHYSICAL THERAPY [facility] Treatment Note Name/MRN: Gonzalo Deluca ([id number]) Date of : 1955 Age: 67 y.o. [...] deg changes. LSO ordered from [facility] Can be discharged when medically ready. [...] note were not included. OCCUPATIONAL THERAPY [facility] Treatment Note Name/MRN: Gonzalo Deluca ([id number]) Date of : 1955 Age: 67 y.o. Room/Bed: [facility] Visit #: 1 out of 7 [...] from the original note were not included. [phone]: Please page me ([phone]) for patient care issues. [phone]: Please page [facility] Hospitalist for any issues. Subjective: Admit Date: 02/13/2023 PCP: HERMINIA CASE MD Room#: 232-08/232-08 Norma Deluca is a 67 y.o. female who presents with Lumbar compression fracture, closed, initial encounter ([facility]) Interval History: Claims that back [...] Net 300 ml LABS: CBC: Recent Labs 02/13/23 2114 02/15/23 0456 WBC 11.1* 5.2 RBC 3.86 3.36* HGB 11.9 10.6* HCT 36.2 31.2* MCV 93.9 92.9 RDW 13.8 13.8 PLT 212 163 BMP: Recent Labs 02/13/23 2114 02/15/23 0456 02/16/23 0343 NA 137 138 139 K [...] Primary Emergency Contact: Karishma Deluca Address: [address] [place] [address] [place] [address] [facility] Relation: Daughter Secondary Emergency Contact: Jace Deluca [place] Relation: Son Advance Directive: Full Code Discharge planning: TBD Earlene Echavarria MD Division of Hospitalist Medicine Inpatient Medical Services/[facility] * Betsey Gresham MD - [...] from the original note were not included. [phone]: Please page me ([phone]) for patient care issues. [phone]: Please page [facility] Hospitalist for any issues. Subjective: Admit Date: 02/13/2023 PCP: HERMINIA CASE MD Room#: 232-08/232-08 Norma Deluca is a 67 y.o. female who presents with Lumbar compression fracture, closed, initial encounter ([facility]) Interval History: Claims that back [...] 13.8 PLT 212 163 BMP: Recent Labs 02/13/23211302/15/23 0456 NA 137 138 K 3.7 3.2* CL [...] Primary Emergency Contact: Karishma Deluca [address]: [address] [place] [address] Mobile Relation: Daughter Secondary Emergency Contact: Jace Deluca Mobile Relation: Son Advance Directive: Full Code Discharge planning: TBD Earlene Echavarria MD Division of Hospitalist Medicine Inpatient Medical Services/[facility] * Marian Mendosa PT - 02/15/2023 11:13 AM EST Images from the original note were not included. PHYSICAL THERAPY [facility] Treatment Note Name/MRN: Gonzalo Deluca ([id number]) Date of : 1955 Age: 67 y.o. [...] from the original note were not included. [phone]: Please page me ([phone]) for patient care issues. [phone]: Please page [facility] Hospitalist for any issues. Subjective: Admit Date: 02/13/2023 PCP: HERMINIA CASE MD Room#: 232-08/232-08 Norma Deluca is a 67 y.o. female who presents with Lumbar compression fracture, closed, initial encounter ([facility]) Interval History: No overnight issues. [...] since patient refuses MRI Physical therapy recommending half-way facility and possible discharge planning to SNF [...] Primary Emergency Contact: Karishma Deluca Address: [address] [place] [address] [address] [place] [id number] [facility] Mobile Relation: Daughter Secondary Emergency Contact: Jace Deluca Mobile Relation: Son Advance Directive: Full Code Discharge planning: TBD Earlene Echavarria MD Division of Hospitalist Medicine Inpatient Medical Services/[facility] * Catalina Rojo OT - 02/14/2023 10:11 AM EST Images from the original note were not included. OCCUPATIONAL THERAPY [facility] Initial Evaluation Name/MRN: Gonzalo Ferris Yosi ([id number]) Evaluation Date: 02/14/2023 Date of : 1955 [...] test Allergic rhinitis Arthritis Asthma Bronchitis [facility]) ([facility]) skin Cervical cancer ([facility]) ([facility]) Chest pain COPD (chronic obstructive pulmonary disease) ([facility]) USE OXYGEN 3 L AT NIGHT DDD (degenerative disc disease), cervical Defect, retina, with detachment right DJD (degenerative joint disease), lumbar Emphysema lung ([facility]) Former smoker Hematuria SCHEDULED FOR THE PROCEDURE /SURGERY ON 02/11/2017 Hypokalemia Lung nodules Osteoporosis Palpitations Pneumonia Recurrent major depression ([facility]) Sciatica Thoracic compression fracture ([facility]) Vitamin D deficiency Past Surgical [...] Noted Lumbar compression fracture, closed, initial encounter ([facility]) 02/13/2023 Nondisplaced fracture of neck of left femur ([facility]) 11/06/2022 Other specified complication of vascular prosthetic devices, implants and grafts, initial encounter([facility]) 08/06/2021 Acute exacerbation of chronic obstructive pulmonary disease ([facility]) 04/12/2018 Poor venous access 12/19/2019 H/O: CVA (cerebrovascular accident) 12/14/2019 Malignant neoplasm of exocervix ([facility]) 11/07/2019 S/P hysterectomy 11/07/2019 PNA (pneumonia) 08/02/2019 Leukocytosis 04/13/2018 Moderate malnutrition (CMS/HCC) ([facility]) 04/13/2018 Shortness of breath 04/13/2018 DDD (degenerative disc disease), cervical 04/12/2018 Recurrent major depression ([facility]) 04/12/2018 Chronic back pain 04/10/2017 COPD (chronic obstructive pulmonary disease) ([facility]) 04/10/2017 Pulmonary nodule 04/10/2017 Sciatica [...] Responsibilities: Independent Receives Help From: Family Active Ibm Mainframe Developer: No Prior Level of Function ADL Assistance: [...] of Care supervision is transferred to a [facility] Therapy Services Occupational Therapist. Goals and/or treatment plan was established in collaboration with patient/family/other representatives. * Jennifer Esparza, PT - 02/14/2023 8:36 AM EST Images from the original note were not included. PHYSICAL THERAPY [facility] Initial Evaluation Name/MRN: Gonzalo Deluca ([id number]) Evaluation Date: 02/14/2023 Date of : 1955 Admission Date: 02/13/2023 6:59 PM Age: 67 y.o. Room/Bed: [facility] Discharge Recommendation: SNF and Continue to [...] test Allergic rhinitis Arthritis Asthma Bronchitis [facility] ([facility]) skin Cervical cancer (CMS/HCC) ([facility]) Chest pain COPD (chronic obstructive pulmonary disease) ([facility]) USE OXYGEN 3 L AT NIGHT DDD (degenerative disc disease), cervical Defect, retina, with detachment right DJD (degenerative joint disease), lumbar Emphysema lung ([facility]) Former smoker Hematuria SCHEDULED FOR THE PROCEDURE /SURGERY ON 02/11/2017 Hypokalemia Lung nodules Osteoporosis Palpitations Pneumonia Recurrent major depression ([facility]) Sciatica Thoracic compression fracture ([facility]) Vitamin D deficiency Past Surgical History: Past Surgical History: Procedure Laterality Date CYSTOSCOPY 01/12/2017 OFFICE PROCEDURE CYSTOSCOPY 02/11/2017 C&P bladder biopsy EYE SURGERY detached retina 1994 HYSTERECTOMY 11/06/2019 ABDOMINAL RADICAL HYSTERECTOMY WITH BSO AND PELVIC LYMPH; DR. ZIYAD MENENDEZ [facility] OTHER SURGICAL HISTORY Left 12/19/2019 Med Port POWER Regular Size OTHER SURGICAL HISTORY Left 11/07/2022 Percutaneous skeltal fixation femoral fracture TUBAL LIGATION 1992 Admission Diagnosis: Patient Active Problem List Diagnosis Date Noted Lumbar compression fracture, closed, initial encounter ([facility]) 02/13/2023 Nondisplaced fracture of neck of left femur ([facility]) 11/06/2022 Other specified complication of vascular prosthetic devices, implants and grafts, initial encounter([facility]) 08/06/2021 Acute exacerbation of chronic obstructive pulmonary disease ([facility]) 04/12/2018 Poor venous access 12/19/2019 H/O: CVA (cerebrovascular accident) 12/14/2019 Malignant neoplasm of exocervix ([facility]) 11/07/2019 S/P hysterectomy 11/07/2019 PNA (pneumonia) 08/02/2019 Leukocytosis 04/13/2018 Moderate malnutrition (CMS/HCC) ([facility]) 04/13/2018 Shortness of breath 04/13/2018 DDD (degenerative disc disease), cervical 04/12/2018 Recurrent major depression ([facility]) 04/12/2018 Chronic back pain 04/10/2017 COPD (chronic obstructive pulmonary disease) ([facility]) 04/10/2017 Pulmonary nodule 04/10/2017 Sciatica [...] Responsibilities: Independent Receives Help From: Family Active Ibm Mainframe Developer: No Prior Level of Function ADL Assistance: [...] of Care supervision is transferred to a [facility] Services Physical Therapist. Goals and/or treatment plan was established in collaboration with patient/family/other representatives. documented in this [facility]11-30-2023 Nurse Note* ARMIN DE OLIVEIRA - 02/17/2023 6:09 PM EST Order for brace faxed to [employer] along with face sheet by Secretary Diaz [place] [id number] Nurse Note* ARMIN DE OLIVEIRA - 02/17/2023 6:09 PM EST Order for brace faxed to [employer] along with face sheet by Secretary Diaz documented in this [facility]11-29-2023 Note* Care Coordination - SATURNINO Garcia - 02/16/2023 1:48 PM EST S/W, transport Transport sheet placed in patient paper chart for [facility] SNF. [address] [id number] Note* Care Coordination - SATURNINO Garcia - 02/16/2023 1:48 PM EST S/W, transport Transport sheet placed in patient paper chart for [facility] SNF. [facility]11-29-2023 Note* Care Coordination - Jordana Lowe RN - 02/16/2023 11:18 AM EST Images from the original note were not included. Care Management Progress Note Remains in HICU due to lumbar fracture. Bone scan planned for 02/17. Ortho following. [facility] able to accept pt. SAW GRINDER tasked to initiate insurance auth. Await insurance approval. Insurance approval received. Attending, faustina, RN & SCHOOL NURSE notified. Pt to have bone scan tomorrowas [...] Stay (Days): 3 GMLOS: No GMLOS Documented [facility]11-29-2023 Note* Care Coordination - Jordana Lowe RN - 02/16/2023 11:18 AM EST Images from the original note were not included. Care Management Progress Note Remains in HICU due to lumbar fracture. Bone scan planned for 02/17. Ortho following. [facility] able to accept pt. SAW GRINDER tasked to initiate insurance auth. Await insurance approval. Insurance approval received. Attending, ortho, RN & SCHOOL NURSE notified. Pt to have bone scan tomorrowas [...] 3 GMLOS: No GMLOS Documented [facility] [id number] Note* Care Coordination - Nidia Barahona - 02/15/2023 3:09 PM EST Referral placed to [facility] via [facility]port per TCC request. Await review and response regarding ability to accept. TCC notified. [facility] [id number] Note* Care Coordination - Nidia Barahona - 02/15/2023 3:09 PM EST Referral placed to [facility] via [facility] per TCC request. Await review and response regarding ability to accept. TCC notified. [facility] [id number] Note* Care Coordination - Ping Lazo RN - 02/15/2023 2:44 PM EST Care Managment Initial Assessment Date: 02/15/2023 Patient Name: Gonzalo Deluca : 1955 Patient Information Source of Information: Patient Cognition/Language: WFL - Within Functional Limits Permission given to speak with patient risk control representative/caregiver as indicated: Yes (Karishma Deluca dtr [phone]) Confirmation of Payer with patient/family: Yes Payer Name: [facility] Medicare : No Confirmation of Primary [...] SNF Discharge Planning Actions: Continue to follow, [facility] referral indicated [place] of choice: [place] of choice discussed, Choice list provided (emailed to [email or web address]) Patient's Choice Rights and [employer] and Collaborative Relationships Disclosed as Indicated for Post-Acute Care: Yes Interdisciplinary Team Engagement: PT/OT Social Work Referral for: Additional Information: [facility] for treatment of of Lumbar compression fracture. PT/OT recommends SNF. Spoke with patient over the phone. Explained role. Lives w/ daughter in two story home. Independentwith adls. Daughter and Son drives. +PCP, +RX cov, +DME, home oxygen. Discussed SNF. Emailed list to [email or web address]. She did inform me she was at [facility] and would be agreeable to go back there. SAW GRINDER tasked to make referral to [facility]. Did explained will need to confirm bedavailability and obtain insurance authorization. She demonstrates understanding. DCP: SNF, referral to [facility]. Other choices pending. Ping Lazo RN [facility] [id number] Note* Care Coordination - Ping Lazo RN - 02/15/2023 2:44 PM EST Care Managment Initial Assessment Date: 02/15/2023 Patient Name: Gonzalo Deluca : 1955 Patient Information Source of Information: Patient Cognition/Language: WFL - Within Functional Limits Permission given to speak with patient risk control representative/caregiver as indicated: Yes (Karishma Deluca dtr [phone]) Confirmation of Payer with patient/family: Yes Payer Name: [facility] Medicare : No Confirmation of Primary [...] SNF Discharge Planning Actions: Continue to follow, Prison Facility referral indicated [place] of choice: [place] of choice discussed, Choice list provided (emailed to [email or web address]) Patient's Choice Rights and [employer] and Collaborative Relationships Disclosed as Indicated for Post-Acute Care: Yes Interdisciplinary Team Engagement: PT/OT Social Work Referral for: Additional Information: [facility] for treatment of of Lumbar compression fracture. PT/OT recommends SNF. Spoke with patient over the phone. Explained role. Lives w/ daughter in two story home. Independentwith adls. Daughter and Son drives. +PCP, +RX cov, +DME, home oxygen. Discussed SNF. Emailed list to [email or web address]. She did inform me she was at [facility] and would be agreeable to go back there. SAW GRINDER tasked to make referral to [facility]. Did explained will need to confirm bedavailability and obtain insurance authorization. She demonstrates understanding. DCP: SNF, referral to [facility]. Other choices pending. Ping Lazo RN [place] [id number] Emergency department Note* Joaquina Guevara RN - 02/14/2023 9:20 AM EST Report called to Jameson WHITEHEAD at this time. Joaquina Guevara RN 02/14/[address]27-2023 Emergency department Note* Joaquina Guevara RN - 02/14/2023 9:20 AM EST Report called to Jameson WHITEHEAD at this time. Joaquina Guevara RN 02/14/23919 * Joaquina Guevara RN - 02/14/2023 8:27 [...] test Allergic rhinitis Arthritis Asthma Bronchitis [facility] ([facility]) skin Cervical cancer (CMS/HCC) ([facility]) Chest pain COPD (chronic obstructive pulmonary disease) ([facility]) USE OXYGEN 3 L AT NIGHT DDD (degenerative disc disease), cervical Defect, retina, with detachment right DJD (degenerative joint disease), lumbar Emphysema lung (HCC) Former smoker Hematuria SCHEDULED FOR THE PROCEDURE /SURGERY ON 02/11/2017 Hypokalemia Lung nodules Osteoporosis Palpitations Pneumonia Recurrent major depression ([facility]) Sciatica Thoracic compression fracture ([facility]) Vitamin D deficiency SURGICAL HISTORY [...] are requesting placement back in rehab versus half-way facility. They states they are concerned about [...] Nancy Salas RN 02/13/232203 documented in this [facility]11-27-2023 Note* Home Care - Deanna Romero LPN - 02/14/2023 8:50 AM EST Patient is currently active with [email or web address]. The patients current certification period will on 03/28/23. The patient is currently receiving PT services through the agency. [employer] to continue to follow. [facility] [id number] Note* Home Care - Deanna Romero LPN - 02/14/2023 8:50 AM EST Patient is currently active with [email or web address]. The patients current certification period will on 03/28/23. The patient is currently receiving PT services through the agency. [employer] to continue to follow. [facility] [id number] Emergency department Note* Joaquina Guevara RN - 02/14/2023 8:27 AM EST Attempted Nurse to nurse via telephone at this time, Jameson states they will call back. Joaquina Guevara RN 02/14/23 0828 [facility]11-27-2023 Consult note* Betsey Gresham MD - [...] DJD (degenerative joint disease), lumbar Emphysema lung ([facility]) Former smoker Hematuria SCHEDULED FOR THE PROCEDURE /SURGERY ON 02/11/2017 Hypokalemia Lung nodules Osteoporosis Palpitations Pneumonia Recurrent major depression ([facility]) Sciatica Thoracic compression fracture ([facility]) Vitamin D deficiency Past Surgical History Past Surgical History: Procedure Laterality Date CYSTOSCOPY 01/12/2017 OFFICE PROCEDURE CYSTOSCOPY 02/11/2017 C&P bladder biopsy EYE SURGERY detached retina 1994 HYSTERECTOMY 11/06/2019 ABDOMINAL RADICAL HYSTERECTOMY WITH BSO AND PELVIC LYMPH; DR[facility] Z[facility]AD [facility]ENENDEZ [facility] OTHER SURGICAL HISTORY Left 12/19/2019 Med [...] start before November 09, 2022. 11/09/22 12/09/22 Dave Whipple, potassium chloride CR (Klor-Con M20) 20 [...] the consult we will follow with you. [facility]11-27-2023 Consult note* Betsey Gresham MD - 02/14/2023 7:[facility] Inpatient consult to orthopaedic surgery-- Inpatient [...] Allergic rhinitis Arthritis Asthma Bronchitis Cancer (CMS/HCC) ([facility]) skin Cervical cancer (CMS/HCC) ([facility]) Chest pain COPD (chronic obstructive pulmonary disease) ([facility]) USE OXYGEN 3 L AT NIGHT DDD (degenerative disc disease), cervical Defect, retina, with detachment right DJD (degenerative joint disease), lumbar Emphysema lung ([facility]) Former smoker Hematuria SCHEDULED FOR THE PROCEDURE /SURGERY ON 02/11/2017 Hypokalemia Lung nodules Osteoporosis Palpitations Pneumonia Recurrent major depression ([facility]) Sciatica Thoracic compression fracture ([facility]) Vitamin D deficiency Past Surgical [...] start before November 09, 2022. 11/09/22 12/09/22 Dave Whipple, potassium chloride CR (Klor-Con M20) 20 [...] will follow with you. documented in this [facility]11-26-2023 History and physical note* Lauren Serna MD - 02/13/2023 11:12 PM EST Images from the original note were not included. History and Physical [facility] Gonzalo Deluca : 1955 AGE 67 y.o. [...] test Allergic rhinitis Arthritis Asthma Bronchitis [facility] ([facility]) skin Cervical cancer (CMS/HCC) ([facility]) Chest pain COPD (chronic obstructive pulmonary disease) ([facility]) USE OXYGEN 3 L AT NIGHT DDD (degenerative disc disease), cervical Defect, retina, with detachment right DJD (degenerative joint disease), lumbar Emphysema lung ([facility]) Former smoker Hematuria SCHEDULED FOR [...] SpO2 98% BMI 22.47 kg/m Pulse Ox: [id number]: 98 % Min: 98 % Max: 98 [...] QT Interval 395 QTC Interval 473 P [place] 69 QRS [place] -35 T Wave [place] -12 TN Interval 152 Impression Sinus rhythm Inferior infarct, [...] x-ray left shoulder is negative for fracture [facility] orthopedics has seen her in the past seeing her machinist helper marine for the For now I will continue [...] to due risk bleed/procedure 02/13/2023 Gonzalo Deluca [id number] Any scheduled follow up appointments Future Appointments Date Time Provider Department Center 03/09/2023 11:15 AM Freddy Person MD [facility] None 04/22/2023 1:00 PM Sally Rocha APRN - [facility] INSTRUMENT REPAIR SUPERVISOR None Extended Emergency Contact Information Primary Emergency Contact: Karishma Deluca Address: [address] [place] [address] [place] [address] [facility] Mobile Relation: Daughter Secondary Emergency Contact: Jace Deluca Mobile Relation: Son Portions of this note may be electronically transcribed. Please forward a copy of this H&P to the primary care physician. [employer] Phone: [phone]) 397-278911-26-2023 History and physical note* Lauren Serna MD - 02/13/2023 11:12 PM EST Images from the original note were not included. History and Physical [facility] Gonzalo Deluca : 1955 AGE 67 y.o. YEARS Note Date 02/13/2023 Primary Care Physician:HERMINIA CASE MD Current Providers as of 02/13/2023 PCP: Herminia Case MD Care Team Provider: Ziyad Menendez MD Care Team Provider: DB Durham CNP Care Team Provider: BD Kohli CNP Referring Provider: not found, starting [...] Allergic rhinitis Arthritis Asthma Bronchitis Cancer (CMS/HCC) ([facility]) skin Cervical cancer (CMS/HCC) ([facility]) Chest pain COPD (chronic obstructive pulmonary disease) ([facility]) USE OXYGEN 3 L AT NIGHT DDD (degenerative disc disease), cervical Defect, retina, with detachment right DJD (degenerative joint disease), lumbar Emphysema lung ([facility]) Former smoker Hematuria SCHEDULED FOR THE PROCEDURE /SURGERY ON 02/11/2017 Hypokalemia Lung nodules Osteoporosis Palpitations Pneumonia Recurrent major depression ([facility]) Sciatica Thoracic compression fracture ([facility]) Vitamin D deficiency She is [...] SpO2 98% BMI 22.47 kg/m Pulse Ox: [id number]: 98 % Min: 98 % Max: 98 [...] QT Interval 395 QTC Interval 473 P [place] 69 QRS [place] -35 T Wave [place] -12 TN Interval 152 Impression Sinus rhythm Inferior infarct, [...] x-ray left shoulder is negative for fracture [facility] orthopedics has seen her in the past seeing her machinist helper marine for the For now I will continue [...] to due risk bleed/procedure 02/13/2023 Gonzalo Deluca [id number] Any scheduled follow up appointments Future Appointments Date Time Provider Department Center 03/09/2023 11:15 AM Freddy Person MD [facility] None 04/22/2023 1:00 PM Sally Rocha APRN - [facility] INSTRUMENT REPAIR SUPERVISOR None Extended Emergency Contact Information Primary Emergency Contact: Karishma Deluca Address: [address] [place] [address] [place] [address] [facility] Mobile Relation: Daughter Secondary Emergency Contact: Jace Deluca Mobile Relation: Son Portions of this note may be electronically transcribed. Please forward a copy of this H&P to the primary care physician. documented in this [facility]11-26-2023 Emergency department Note* Anahi Harvey RN - 02/13/2023 6:59 PM EST Bed: 02 Expected date: Expected time: Means of arrival: Comments: Jean Harvey RN 02/13/23 1859 [place] [id number] Emergency department Note* Nancy Salas RN - 02/13/2023 6:59 PM EST Bed: 16 Expected date: Expected time: Means of arrival: Comments: Room 2 Nancy Salas RN 02/13/232203 [place] [id number] Emergency department Triage note* VERA Harper - 02/13/2023 6:59 PM EST Complaint of fall today injuring lower back and left shoulder. [facility] [id number] Physician Emergency department Note* Lorenzo Orozco MD [...] Chest pain COPD (chronic obstructive pulmonary disease) ([facility]) USE OXYGEN 3 L AT [...] disposition. ED Course as of 02/17/23 0847 [place] Feb 13, [id number] XR shoulder 2+ views [...] are requesting placement back in rehab versus half-way facility. They states they are concerned about [...] Lorenzo Orozco MD 02/17/23 0849 [facility] [id number] Miscellaneous Notes* Telephone Encounter - Whit Shay LPN - 02/08/2023 9:57 AM EST Request completed and faxed. * Telephone Encounter - Herminia Case MD - 02/08/2023 9:48 AM EST Done. * Telephone Encounter - Whit Shay LPN - 02/07/2023 2:59 PM EST Type of letter/form/fax request - Home Health Care Orders Plan of Care Certification Period- 01/28/23 to 03/28/23 [facility] and placed on MD desk () for completion. Completed form needs to be faxed to [phone]. Route to [place] when form completed for processing documented [facility] Miscellaneous Notes* Telephone Encounter - Tate Weathers MA - 02/07/2023 2:00 PM EST Last appointment: 01/14/23 Next appointment: 03/11/23 Pharmacy verified in [place]. Refill(s) requested: Requested Prescriptions Pending Prescriptions Disp Refills QUEtiapine (SEROQUEL) 100 mg tablet [Pharmacy Med Name: QUETIAPINE FUMARATE 100 MG TAB] 180 tablet 1 Sig: TAKE 2 TABLETS BY MOUTH AT BEDTIME NEEDED Order(s) pended. Please advise. Tate Weathers MA, [facility] documented in this [facility]14-2023 History of Present illness Narrative* Agustina Romero MA - 02/01/2023 11:01 AM EST POPULATION HEALTH NAVIGATION OUTREACH Action/FYI Called and left a message to call [phone], to discuss health maintenance items that are due. Sent My Chart message. Patient Identified by Name and : NO Outreach Outcome/Action Unable to reach patient: Left message [employer] message sent Did you use a PCP flex slot to schedule this appointment? N/A Reason for Outreach Care Gap or Scheduling/Wellness visits Payer: Payor: [facility] MEDICARE / Plan: [facility] DUAL COMPLETE HMO POS SNP / [...] 11:02 AM documented in this encounterMercy Health St. [facility]11-14-2023 Miscellaneous Notes* Telephone Encounter - Whit Shay LPN - 02/01/2023 9:07 AM EST Request completed and faxed. * Telephone Encounter - Whit Shay LPN - 01/31/2023 3:36 PM EST Type of letter/form/fax request - Home Health Care Orders Form received from [facility] on 01/28/23 floor and placed on MD desk () for completion. Completed form needs to be faxed to [phone]. Route to [place] when form completed for processing documented in this encounterMercy Health St. [facility]11-09-2023 History of Present illness Narrative* Jo Chen MA - 01/27/2023 12:21 PM EST POPULATION HEALTH NAVIGATION OUTREACH Action/FYI Unable to leave Decision [employer] message sent Mammogram Screening Never done Colorectal Cancer Screening Never done Patient Identified by Name and : NO Outreach Outcome/Action Unable to reach patient: Phone number not valid / voicemail full [employer] message sent Did you use a PCP flex slot to schedule this appointment? N/A Reason for Outreach Care Gap or Scheduling/Wellness visits Payer: Payor: [facility] MED[facility] / Plan: [facility] DUAL COMPLETE HMO POS SNP / [...] 27, 2023 12:21 PM documented in this [facility]11-06-2023 Miscellaneous Notes* Telephone Encounter - Whit Shay LPN - 01/24/2023 3:12 PM EST Request completed and faxed. * Telephone Encounter - Herminia Case MD - 01/24/2023 3:06 PM EST Done. * Telephone Encounter - Whit Shay LPN - 01/24/2023 2:42 PM EST Type of letter/form/fax request - Home Health Care Orders Form received from [facility] on 01/21/23 floor and placed on MD desk () for completion. Completed form needs to be faxed to [phone]. Route to [place] when form completed for processing documented in this [facility]11-03-2023 Miscellaneous Notes* Telephone Encounter - Rayo Roman Ma - 01/21/2023 1:45 PM EDT Type of letter/form/fax request - Home Health Care Orders Form received from [facility] on 01/21/23 floor and placed on desk () for completion. Completed form needs to be faxed to [phone]. Route to [place] when form completed for processing documented in this [facility]10-30-2023 Miscellaneous Notes* Telephone Encounter - Whit Shay LPN - 01/17/2023 6:06 PM EDT Request completed and faxed. * Telephone Encounter - Whit Shay LPN - 01/17/2023 10:35 AM EDT Type of letter/form/fax request - Home Health Care Orders Form received from [facility] on 01/15/23 floor and placed on MD desk () for completion. Completed form needs to be faxed to [phone]. Route to [place] when form completed for processing documented in this encounterMercy Health St. [facility]10-27-2023 Instructions* Patient Instructions* Herminia Case [...] mg duloxetine. documented in this encounterMercy Health St. Rita'[facility]10-27-2023 History of Present illness Narrative* [...] Helps her hips, knees Pulmonary - dr. Lynn - planning to schedule. Copd - emphysema [...] on 2022 documented [address]Mer[address]. [facility]10-20-2023 Miscellaneous Notes* Telephone Encounter - Melva Juárez PA-C - 01/07/2023 3:21 PM EDT Noted. Melva Juárez PA-C * Telephone Encounter - Teressa Macario - 01/07/2023 1:21 PM EDT Lake with [facility] calling to update that patient cancelled her appointment today becauseshe is not feeling well. Any questions, please call Lake @ [phone] documented [address]. [facility]10-18-2023 Miscellaneous Notes* Telephone Encounter - Melva Juárez PA-C - 01/05/2023 5:12 PM EDT Noted. Melva Juárez PA-C * Telephone Encounter - Rayo Roman Ma - 01/05/2023 4:32 PM EDT FYI * Telephone Encounter - Teressa Macario - 01/05/2023 12:17 PM EDT Dianne [facility] calling today to update that patient missed appointment today because she does not feel well. Patient is asking to hold off therapy until Tuesday. documented in this encounterMercy Health St. [facility]10-12-2023 Miscellaneous Notes* Telephone Encounter - Whit Shay LPN - 12/30/2022 11:28 AM EDT Request completed and faxed. * Telephone Encounter - Herminia Case MD - 12/30/2022 11:18 AM EDT Done. * Telephone Encounter - Whit Shay LPN - 12/30/2022 9:28 AM EDT Type of letter/form/fax request - Home Health Care Orders Form received from [facility] on 12/29/22 floor and placed on MD desk () for completion. Completed form needs to be faxed to [phone]. Route to [place] when form completed for processing documented in this encounterMercy Health St. [facility]10-11-2023 Miscellaneous Notes* Telephone Encounter - Whit Shay LPN - 12/29/2022 8:43 AM EDT Request completed and faxed. * Telephone Encounter - Whit Shay LPN - 12/28/2022 2:00 PM EDT Type of letter/form/fax request - Home Health Care Orders Form received from [facility] on 12/27/22 floor and placed on MD desk () for completion. Completed form needs to be faxed to [phone]. Route to [place] when form completed for processing documented in this encounterMercy Health St. [facility]10-09-2023 Miscellaneous Notes* Telephone Encounter - Whit Shay LPN - 12/27/2022 3:41 PM EDT Request completed and faxed. * Telephone Encounter - Whit Shay LPN - 12/22/2022 8:26 AM EDT Type of letter/form/fax request - Home Health Care Orders Form received from [facility] on 12/21/22 floor and placed on MD desk () for completion. Completed form needs to be faxed to [phone]. Route to [place] when form completed for processing documented in this encounterMercy Health St. Rita'[facility]09-28-2023 Miscellaneous Notes* Telephone Encounter - Parul Sanderson OCCA - 12/16/2022 2:11 PM EDT Last appointment: 09/15/22 Next appointment: 01/14/23 Pharmacy verified in [facility]. Refill(s) requested: Requested Prescriptions Pending Prescriptions Disp Refills oxyCODONE-acetaminophen (PERCOCET) 5-325 mg tablet 134 tablet 0 Sig: Take 1 tablet by mouth every 4 hours as needed for pain for up to 30 days. Order(s) pended. Please advise,thank you. Parul GOMES December 16, 2022 2:12 PM documented in this encounterMercy Health St. [facility]09-23-2023 Miscellaneous Notes* Telephone Encounter - Whit Shay LPN - 12/11/2022 8:37 AM EDT Home care Certification Form 485 received from [facility]. For cert dates 11/29/22 to 01/27/23 that were signed on 12/07/22. Recertification Patient's home health 485 form / care plan for stated certification period reviewed and signed. Relevant medical records were reviewed. No changes were indicated documented in this encounterMercy Health St. [facility]09-22-2023 Miscellaneous Notes* Telephone Encounter - Cayden Acevedo - 12/10/2022 3:31 PM EDT Last appointment: 09.15.2022 Next appointment: 01.14.2023 Pharmacy verified in [facility]. Refill(s) requested: Requested Prescriptions Pending Prescriptions Disp Refills alendronate (FOSAMAX) 70 mg tablet [Pharmacy Med Name: ALENDRONATE SODIUM 70 MG TAB] 12 tablet 3 Sig: TAKE 1 TABLET BY MOUTH ONE TIME A WEEK. Order(s) pended. Please advise. Cayden Acevedo CMA documented in this encounterMercy Health St. [facility]09-21-2023 Miscellaneous Notes* Telephone Encounter - Whit Shay LPN - 12/09/2022 2:57 PM EDT Request completed and faxed. * Telephone Encounter - Herminia Case MD - 12/09/2022 2:49 PM EDT Done. * Telephone Encounter - Whit Shay LPN - 12/09/2022 2:16 PM EDT Type of letter/form/fax request - Home Health Care Orders Form received from [facility] on 12/07/22 floor and placed on MD desk () for completion. Completed form needs to be faxed to [phone]. Route to [place] when form completed for processing documented in this encounterMercy Health St. Rita'[facility]09-21-2023 History of Present illness Narrative* Silvia Trejo Ma - 12/09/2022 10:45 AM EDT Spoke with patient. Patient states that she will complete it and send it in. documented in this encounterMercy Health St. [facility]09-19-2023 Miscellaneous Notes* Telephone Encounter - Whit Shay LPN - 12/07/2022 4:19 PM EDT Request completed and faxed. * Telephone Encounter - Herminia Case MD - 12/07/2022 4:01 PM EDT Done. * Telephone Encounter - Whit Shay LPN - 12/07/2022 8:50 AM EDT Type of letter/form/fax request - Home Health Care Orders Form received from [facility] on 12/03/22 floor and placed on MD desk () for completion. Completed form needs to be faxed to [phone]. Route to [place] when form completed for processing documented in this encounterMercy Health St. [facility]09-12-2023 Miscellaneous Notes* Telephone Encounter - Whit Shay LPN - 11/30/2022 9:33 AM EDT Called Leola from [facility] and relayed message below. She verbalized understanding. Whit Shay LPN * Telephone Encounter - Herminia Case MD - 11/29/2022 7:19 PM EDT yes * Telephone Encounter - Jessica Castro - 11/29/2022 4:41 PM EDT Leola Villanueva from [facility] is calling to confirm that Dr. Case will follow patient for home health care. Please call back to [phone] [address]. [facility]09-05-2023 Miscellaneous Notes* Telephone Encounter - Simran Prasad Ma - 11/23/2022 7:49 PM EDT Date of last office visit : 09/15/2022 Date of next office visit : 01/14/2023 Pharmacy verified in [facility]. Refill(s) requested: Requested Prescriptions Pending Prescriptions Disp Refills SPIRIVA RESPIMAT 2.5 mcg/actuation inhaler [Pharmacy Med Name: SPIRIVA RESPIMAT 2.5 MCG INH] 3 Sig: INHALE 2 PUFFS BY MOUTH ONCE DAILY DIRECTED Order(s) pended. Please advise. Simran Prasad Ma, CMA documented in this encounterMercy Health St. [facility]09-01-2023 Miscellaneous Notes* Telephone Encounter - Estee Amor LPN - 2022 4:01 PM EDT Pharmacy verified in [facility] Patient has been identified by name and [...] Amor LPN documented in this encounterMercy Health St. [facility]08-31-2023 Miscellaneous Notes* Telephone Encounter - Madison Ceja - 11/18/2022 1:04 PM EDT Patient scheduled for sooner appointment * Telephone Encounter - Herminia Case MD - 11/18/2022 12:50 PM EDT Needs sooner appt for pain med refills. * Telephone Encounter - Parul Sanderson OCCA - 11/17/2022 12:54 PM EDT Last appointment: 09/15/22 Next appointment: 03/17/23 Pharmacy verified in [facility]. Refill(s) requested: Requested Prescriptions Pending Prescriptions Disp Refills oxyCODONE-acetaminophen (PERCOCET) 5-325 mg tablet 134 tablet 0 Sig: Take 1 tablet by mouth every 4 hours as needed for pain for up to 30 days. Order(s) pended. Please advise,thank you. Parul GOMES November 17, 2022 12:55 PM documented in this encounterMercy Health St. [facility]08-28-2023 Miscellaneous Notes* Telephone Encounter - Maria Alejandra Reno MA - 11/15/2022 1:29 PM EDT Pharmacy verified in Epic Patient [...] Reno MA documented in this encounterMercy Health St. [facility]08-21-2023 Note* Care Coordination - SATURNINO Garcia - 11/08/2022 2:29 PM EDT S/W, follow up Patient discharged to [facility]. Transport set via [facility] at 430p. advisory intern provided report number. I did visit patient in room to notify. Patient and myself did notify daughter karishma via speaker phone of transport this evening. [facility] [id number] Note* Care Coordination - SATURNINO Garcia - 11/08/2022 2:29 PM EDT S/W, follow up Patient discharged to [facility]. Transport set via [facility] at 430p. advisory intern provided report number. I did visit patient in room to notify. Patient and myself did notify daughter karishma via speaker phone of transport this evening. [facility] [id number] Miscellaneous Notes* Care Coordination - SATURNINO Garcia - 11/08/2022 2:29 PM EDT S/W, follow up Patient discharged to [facility]. Transport set via [facility] at 430p. advisory intern provided report number. I did visit patient in room to notify. Patient and myself did notify daughter karishma via speaker phone of transport this evening. * Care Coordination - Unknown Case Management - 11/08/2022 1:57 PM EDT Patient Choice Patient Name: GONZALO DELUCA Date of : 1955 All Providers Sent Referral Name: [facility] Phone: [phone] Address: [address] [place] [address] * Care Coordination - Francesca Gurrola RN - 11/08/2022 11:20 AM EDT Tasked [employer] to submit for auth for [facility]. . * Care Coordination - Francesca Gurrola RN - 11/08/2022 6:59 AM EDT Images from the original note were not included. Care Management Progress Note Awaiting therapy evals and recommendations. Per careport. [facility] is able to accept. Will need [...] Isaac LPN - 11/07/2022 4:39 PM EDT Art Critic following case for Discharge Needs. * Care Coordination - Francesca Gurrola RN - 11/07/2022 4:20 PM EDT Care Managment Initial Assessment Date: 11/07/2022 Patient Name: Gonzalo Deluca : 1955 Patient Information Source of Information: Patient Name/Contact Information: KARISHMA DELUCA [phone] LOWELL AND JACE DELUCA SON [phone] Cognition/Language: WFL - Within Functional Limits Permission given to speak with patient risk control representative/caregiver as indicated: Yes Confirmation of Payer with patient/family: Yes Payer Name: [facility] DUAL COMPLETE : No Confirmation of [...] Living Prescription Coverage: Yes Pharmacy Used: [facility] Medication Management: Prescription pick-up Who assists with [...] Plan Patient expects to be discharged to: ASSISTED FACILITY Discharge Planning Actions: Prison Facility referral indicated [place] of choice: [place] of choice discussed, Choice list provided Patient's [...] states she is planning discharging to a half-way facility and would like to go to facility in [place] where her daughter's friend works-[facility]. Will place referral [facility] to determine if bed is available and if fa cility is in network with patient's [facility]. Did instruct patient to choose 3 other facilities in case there is no bed available at [facility]. Will have home care follow peripherally should therapy recommend home with hhc. Tentative discharge plan is home with hhc vs snf when medically stable/accepting facility and auth obtained. Francesca Gurrola RN * Op Note - Andres Ventura MD - 11/07/2022 8:14 AM EDT Preoperative diagnosis: Left nondisplaced valgus impacted subcapital femoral neck fracture Postoperative diagnosis: Same Procedure: Percutaneous cannulated screw fixation left femoral neck fracture Surgeon: Andres Ventura MD Drag Out Worker: Jono HARRIS Anesthesia: General Estimate blood loss: [...] the shift include Safety documented in this encounterSThe Christ HospitalEjqouq91-01-1106 Note* Care Coordination - Unknown Case Management - 11/08/2022 1:57 PM EDT Patient Choice Patient Name: GONZALO DELUCA Date of : 1955 All Providers Sent Referral Name: [facility] Phone: [phone] Address: [address] [place] [id number] [facility] [id number] Note* Care Coordination - Unknown Case Management - 11/08/2022 1:57 PM EDT Patient Choice Patient Name: GONZALO DELUCA Date of : 1955 All Providers Sent Referral Name: [facility] Phone: [phone] Address: [address] [place] [address] [facility] FoundationMjsshc05-21-3294 Hospital Discharge instructions* Discharge Instr - SHAMA* Austyn Bee RN - 11/08/2022 1:44 PM EDT Continuity of Care Form Patient Name: Gonzalo Deluca : 1955 Admit date: 11/06/2022 Discharge date: Code Status Order: Full Code Advance Directives: N Admitting Physician: Dave Whipple DO PCP: HERMINIA CASE MD Discharging Nurse: Austyn Bee RN Discharging Hospital Unit/Room#: B4-453/B4-453 A Discharging Unit Emergency Contact: Extended Emergency Contact Information Primary Emergency Contact: RaudlesumeetbenjiKarishma Relation: Child Secondary Emergency Contact: Jace Deluca Relation: Child Past Surgical History: Past Surgical History: Procedure Laterality Date CYSTOSCOPY 01/12/2017 OFFICE PROCEDURE CYSTOSCOPY 02/11/2017 C&P bladder biopsy EYE SURGERY detached retina 1994 HYSTERECTOMY 11/06/2019 ABDOMINAL RADICAL HYSTERECTOMY WITH BSO AND PELVIC LYMPH; DR. ZIYAD MENENDEZ [facility] OTHER SURGICAL HISTORY Left 12/19/2019 Med [...] Minimal assistance Toileting Minimal assistance Feeding Independent User Experience Lead Minimal assistance Med Delivery no Wound Care [...] Score: @READMISSIONRISKDETAILS@ Discharging to Facility/ Agency Name: [facility] Address:[address] [place] [address] Phone:[phone] Fax: Dialysis Facility (if applicable) Name: Address: Dialysis Schedule: Phone: Fax: Credit Report Checker/External Grinder signature: ICIAN SECTION Prognosis: excellent Condition at Discharge: stable Rehab Potential (if transferring to Rehab): excellent Recommended Labs or Other Treatments After Discharge: none Physician Certification: I certify the above information and transfer of Gonzalo Deluca is necessary for the continuing treatment of the diagnosis listed and that she requires half-way facility for less than 30 days. Update Admission H&P: No change in H&P PHYSICIAN SIGNATURE: documented in this [facility]08-21-2023 Hospital course Narrative* Dave Whipple DO - 11/08/2022 1:31 PM EDT Images from the original note were not included. Hospitalist Discharge Summary Gonzalo Deluca : 1955 Admit date: 11/06/2022 Discharge date: 11/08/2022 Admitting Physician: Dave Whipple DO Primary Care Physician: HERMINIA CASE [...] Complexity: follow up within 7-14 calendar days (46039) [x] Severe Complexity: follow up within 7 calendar days (00777) Follow up Testing, Pending results or Referrals [...] appointment within the above time frame. Signed: Dave Whipple DO Division of Hospitalist Medicine Inpatient Medical Services/[facility] 11/08/2022, 1:31 PM Total time Spent on Discharge: 21 minutes documented in this [facility]08-21-2023 History of Present illness Narrative* Dave Whipple DO - 11/08/2022 1:00 PM EDT Images from the original note were not included. Hospitalist Progress Note 11/08/[id number]: Please page me ([phone]) for patient care issues. [phone]: Please page [facility] Hospitalist for any issues. Subjective: Admit [...] Secondary Emergency Contact: Jace Deluca Relation: Child Dave Whipple DO Division of Hospitalist Medicine Inpatient Medical Services/[facility] PAGER: Epic chat * Betsey [...] (L) 11/08/2022 PLT 182 11/08/2022 * Amy Brambila, OT - 11/08/2022 10:19 AM EDT Occupational Therapy Facility/Department: [facility] Occupational Therapy Initial Evaluation NAME: Gonzalo [...] intertrochanteric fracture of left femur, initial encounter ([facility]). has a past medical history of Abnormal stress test, Allergic rhinitis, Arthritis, Asthma, Bronchitis, Cancer ([facility]) (HCC), Cervical cancer (CMS/HCC) (HCC), Chest pain, COPD (chronic obstructive pulmonary disease) (HCC), DDD (degenerative disc disease), cervical, Defect, retina, with detachment, DJD (degenerative joint disease), lumbar, Emphysema lung (HCC), Former smoker, Hematuria, Hypokalemia, Lung nodules, Osteoporosis, Palpitations, Pneumonia, Recurrent major depression (HCC), Sciatica, Thoracic compression fracture ([facility]), and Vitamin D deficiency. She has no past medical history of Blood circulation, collateral, Chronic kidney disease, Clotting disorder (CMS/HCC) ([facility]), Disease of blood and blood forming organ, GERD (gastroesophageal reflux disease), Liver disease, Movement disorder, Other disorders of kidney and ureter in diseases classified elsewhere, Seizures ([facility]), or Syncope and collapse. has [...] Individual Co-treatment Time In 820 Time Out 0833 (co eval with PT) Minutes 12 POC supervision transferred to rehab service department occupational therapist. Amy Brambila OT * Oseas King PT - 11/08/2022 9:45 AM EDT Physical Therapy Facility/Department: [facility] Physical Therapy Initial Evaluation NAME: Gonzalo [...] fixation with Dr. Ventura, is WBAT Exam: [facility] Clinical Presentation: Pt admitted 11/06 with s/p [...] intertrochanteric fracture of left femur, initial encounter ([facility]). has a past medical history of Abnormal stress test, Allergic rhinitis, Arthritis, Asthma, Bronchitis, Cancer (CMS/HCC) ([facility]), Cervical cancer (CMS/HCC) ([facility]), Chest pain, COPD (chronic obstructive pulmonary disease) ([facility]), DDD (degenerative disc disease), cervical, Defect, retina, with detachment, DJD (degenerative joint disease), lumbar, Emphysema lung ([facility]), Former smoker, Hematuria, Hypokalemia, Lung nodules, Osteoporosis, Palpitations, Pneumonia, Recurrent major depression ([facility]), Sciatica, Thoracic compression fracture ([facility]), and Vitamin D deficiency. She has no past medical history of Blood circulation, collateral, Chronic kidney disease, Clotting disorder (CMS/HCC) ([facility]), Disease of blood and blood forming organ, GERD (gastroesophageal reflux disease), Liver disease, Movement disorder, Other disorders of kidney and ureter in diseases classified elsewhere, Seizures ([facility]), or Syncope and collapse. has [...] a level one for nutrition care. * Dave Whipple DO - 11/07/2022 12:00 PM EDT Images from the original note were not included. Hospitalist Progress Note 11/07/2022 [phone]: Please page me ([phone]) for patient care issues. [phone]: Please page [facility] Hospitalist for any issues. Subjective: Admit [...] Allergic rhinitis Arthritis Asthma Bronchitis Cancer (CMS/HCC) ([facility]) skin Cervical cancer (CMS/HCC) ([facility]) Chest pain COPD (chronic obstructive pulmonary disease) ([facility]) USE OXYGEN 3 L AT [...] Secondary Emergency Contact: RaudelsumeetJace leblanc Relation: Child Dave Whipple DO Division of Hospitalist Medicine Inpatient Medical Services/[facility] PAGER: Epic chat documented in this encounterSThe Christ [id number] Note* Care Coordination - Francesca Gurrola RN - 11/08/2022 11:20 AM EDT Tasked SAW GRINDER to submit for auth for [facility]. . [facility] [id number] Note* Care Coordination - Francesca Gurorla RN - 11/08/2022 11:20 AM EDT Tasked [facility] to submit for auth for [facility]. . [facility] [id number] Nurse Note* Austyn Bee RN - 11/08/2022 10:58 AM EDT Pt. found with vape in bed. When asking pt. about using the vape, pt stated, "I have been using this since I've been here" Patient educated on no smoking/vaping policy. Vape removed and placed in chart box. Protective services notified. Dr. Whipple notified. See orders. [place] [id number] Nurse Note* Austyn Bee RN - 11/08/2022 10:58 AM EDT Pt. found with vape in bed. When asking pt. about using the vape, pt stated, "I have been using this since I've been here" Patient educated on no smoking/vaping policy. Vape removed and placed in chart box. Protective services notified. Dr. Whipple notified. See orders. documented in this encounterSThe Christ [id number] Miscellaneous Notes* Telephone Encounter - Whit Shay LPN - 11/08/2022 8:17 AM EDT Medication is pended. Last visit: 09/15/22 Next visit: 03/17/[address]. [facility]'S [facility]08-21-2023 Note* Care Coordination - Francesca Gurrola RN - 11/08/2022 6:59 AM EDT Images from the original note were not included. Care Management Progress Note Awaiting therapy evals and recommendations. Per careport. [place] [facility] is able to accept. Will need [...] GMLOS: No GMLOS Documented . [facility] [id number] Note* Care Coordination - Francesca Gurrola RN - 11/08/2022 6:59 AM EDT Images from the original note were not included. Care Management Progress Note Awaiting therapy evals and recommendations. Per careport. [place] [facility] is able to accept. Will need [...] Date/Time Set By Reviewed At 11/08/2022 Austyn Santosh Mccann, DO 11/06/2022 4:18 PM 11/08/2022 Austyn Santosh Mccann, DO 11/06/2022 3:22 PM Length of Stay (Days): 2 GMLOS: No GMLOS Documented . [facility] [id number] Plan of care note* Care Plan - Tona Barroso RN - 11/07/2022 9:03 PM EDT The patient is Moderately Stable - Low risk of patient condition declining or worsening The patient's goals for the shift include "Pain control and rest." The clinical goals for the shift include Safety [facility] [id number] Note* Home Care - Rosa Elena Isaac LPN - 11/07/2022 4:39 PM EDT Art Critic following case for Discharge Needs. [address]Tdimti33-18-3631 Note* Home Care - Rosa Elena Isaac LPN - 11/07/2022 4:39 PM EDT Art Critic following case for Discharge Needs. [address]Wnrlcn95-89-6855 Note* Care Coordination - Francesca Gurrola RN - 11/07/2022 4:20 PM EDT Care Managment Initial Assessment Date: 11/07/2022 Patient Name: oGnzalo Deluca : 1955 Patient Information Source of Information: Patient Name/Contact Information: KARISHMA DELUCA [phone] LOWELL AND JACE DELUCA SON [phone] Cognition/Language: WFL - Within Functional Limits Permission given to speak with patient risk control representative/caregiver as indicated: Yes Confirmation of Payer with patient/family: Yes Payer Name: [facility] DUAL COMPLETE : No Confirmation of [...] Living Prescription Coverage: Yes Pharmacy Used: [facility] [place] Medication Management: Prescription pick-up Who assists with [...] Plan Patient expects to be discharged to: ASSISTED FACILITY Discharge Planning Actions: Prison Facility referral indicated [place] of choice: [place] choice discussed, Choice list provided Patient's [...] states she is planning discharging to a half-way facility and would like to go to facility in [place] where her daughter's friend works-[employer] [facility]. Will place referral in careport to determine if bed is available and if fa cility is in network with patient's [facility]. Did instruct patient to choose 3 other facilities in case there is no bed available at [facility]. Will have home care follow peripherally should therapy recommend home with hhc. Tentative discharge plan is home with hhc vs snf when medically stable/accepting facility and auth obtained. Francesca Gurrola RN [facility] FoundationUyasce76-44-8700 Note* Care Coordination - Francesca Gurrola RN - 11/07/2022 4:20 PM EDT Care Managment Initial Assessment Date: 11/07/2022 Patient Name: Gonzalo Deluca : 1955 Patient Information Source of Information: Patient Name/Contact Information: KARISHMA DELUCA [phone] LOWELL AND JACE DELUCA SON [phone] Cognition/Language: WFL - Within Functional Limits Permission given to speak with patient risk control representative/caregiver as indicated: Yes Confirmation of Payer with patient/family: Yes Payer Name: [facility] DUAL COMPLETE [place]: No Confirmation of Primary Care Physician: Confirmed [...] Living Prescription Coverage: Yes Pharmacy Used: [facility] [place] Medication Management: Prescription pick-up Who assists with [...] Plan Patient expects to be discharged to: ASSISTED FACILITY Discharge Planning Actions: Prison Facility referral indicated [place] of choice: [place] of choice discussed, Choice list provided Patient's [...] states she is planning discharging to a half-way facility and would like to go to facility in [place] where her daughter's friend works-[facility] [facility]. Will place referral in careport to determine if bed is available and if [facility] is in network with patient's [facility]. Did instruct patient to choose 3 other facilities in case there is no bed available at [facility]. Will have home care follow peripherally should therapy recommend home with [facility]. Tentative discharge plan is home with hhc vs snf when medically stable/accepting facility and auth obtained. Francesca Gurrola RN [facility] [id number] Note* Op Note - Andres Ventura MD - 11/07/2022 8:14 AM EDT Preoperative diagnosis: Left nondisplaced valgus impacted subcapital femoral neck fracture Postoperative diagnosis: Same Procedure: Percutaneous cannulated screw fixation left femoral neck fracture Surgeon: Andres Ventura MD Drag Out Worker: Jono HARRIS Anesthesia: General Estimate blood loss: [...] was taken to recovery in stable condition. [facility]08-20-2023 Note* Op Note - Andres Ventura MD - 11/07/2022 8:14 AM EDT Preoperative diagnosis: Left nondisplaced valgus impacted subcapital femoral neck fracture Postoperative diagnosis: Same Procedure: Percutaneous cannulated screw fixation left femoral neck fracture Surgeon: Andres Ventura MD Drag Out Worker: Jono HARRIS Anesthesia: General Estimate blood loss: [...] to recovery in stable condition. [facility] FoundationGuuttr84-60-9139 Plan of care note* Care Plan - Tona Barroso RN - 11/06/2022 11:24 PM EDT The patient is Moderately Stable - Low risk of patient condition declining or worsening The patient's goals for the shift include "Pain control and rest." The clinical goals for the shift include Safety [facility] FoundationRflcwd83-04-5265 Consult note* Andres Ventura MD - 11/06/2022 [...] area to obtain informed consent. [facility] FoundationHkpiev29-47-5327 Consult note* Andres Ventura MD - 11/06/2022 [...] to obtain informed consent. documented in this [facility]08-19-2023 Emergency department Note* Gwen Solorzano RN - 11/06/2022 4:06 PM EDT Spoke with patient about which medications she has taken today, patient states that she take all medications nightly. Change medications to be given nightly. Gwen Solorzano RN 11/06/22 4533 [facility] FoundationLcdaha33-06-6001 Emergency department Note* Gwen Solorzano RN - 11/06/2022 4:06 PM EDT Spoke with patient about which medications she has taken today, patient states that she take all medications nightly. Change medications to be given nightly. Gwen Solorzano RN 11/06/22 6117 * VERA Kraft - 11/06/2022 1:02 PM EDT Guided Karishma back VERA Kraft 11/06/22 1302 * VERA Kraft - 11/06/2022 12:57 PM EDT Introduced myself as pt liaison and explaiined role and provided support to daughter Karishma in [facility] , pt arrived via EMS. VERA rKaft 11/06/22 8944 * Austyn Mccann DO - 11/06/2022 12:49 [...] major depression (HCC) Sciatica Thoracic compression fracture ([facility]) Vitamin D deficiency SURGICAL HISTORY [...] COPD. I Austyn Mccann DO am the property loss insurance claim adjuster of record. PROCEDURES: Unless otherwise noted below, none Procedures FINAL IMPRESSION 1. Closed displaced intertrochanteric fracture of left femur, initial encounter ([facility]) DISPOSITION Admit 11/06/2022 03:22:00 PM [...] Austyn Mccann DO 11/06/22 1523 * Gwen Solorzaon RN - 11/06/2022 12:49 PM EDT Patient [...] Verdugo RN 11/06/22 1250 documented in this [facility]08-19-2023 History and physical note* Dave Whipple DO - 11/06/2022 3:23 PM EDT [...] and Asthma, HLD, anxiety/depression. who presents to [facility] on 11/06/2022 with chief complaint of [...] Chest pain COPD (chronic obstructive pulmonary disease) ([facility]) USE OXYGEN 3 L AT [...] on Anticoagulation Anticipated Discharge - Date - 8/21/23 - Location - Home vs SNF - [...] the patient's PCP. Thank you. [facility] FoundationEzxlnh22-03-7835 History and physical note* Dave Whipple DO - 11/06/2022 3:23 PM EDT [...] and Asthma, HLD, anxiety/depression. who presents to [facility] on 11/06/2022 with chief complaint of [...] nodules Osteoporosis Palpitations Pneumonia Recurrent major depression ([facility]) Sciatica Thoracic compression fracture ([facility]) Vitamin D deficiency Past Surgical [...] respiratory failure Patient is in 2-3L via [place] at baseline No acute exacerbation Resume home [...] patient's PCP. Thank you. documented in this [facility]08-19-2023 Emergency department Note* VERA Kraft - 11/06/2022 1:02 PM EDT Guided Karishma back VERA Kraft 11/06/22 1302 [address]Tjjqyb45-79-5536 Emergency department Note* VERA Kraft - 11/06/2022 12:57 PM EDT Introduced myself as pt liaison and explaiined role and provided support to daughter Karishma in [place] , pt arrived via EMS. VERA Kraft 11/06/22 1258 [address]Zdsfoj29-14-2952 Emergency department Note* Shelley Verdugo RN - 11/06/2022 12:49 PM EDT Bed: 04 Expected date: Expected time: Means of arrival: Comments: Jean 67/F Fall with L hip pain Shelley Verdugo RN 11/06/22 1250 [facility] FoundationTfkfdl10-76-1125 Emergency department Triage note* Gwen Solorzano RN - 11/06/2022 12:49 PM EDT Patient presents to the ED via EMS. Patient had a mechanical fall in her room due to tripped over her feet. Patient denies hitting head. Patient states she has balance issues at baseline and uses assistance to walk. Patient is resting comfortably with family at bedside. [facility] [id number] Physician Emergency department Note* Austyn Mccann DO [...] Chest pain COPD (chronic obstructive pulmonary disease) ([facility]) USE OXYGEN 3 L AT [...] COPD. I Austyn Mccann DO am the property loss insurance claim adjuster of record. PROCEDURES: Unless otherwise noted below, none Procedures FINAL IMPRESSION 1. Closed displaced intertrochanteric fracture of left femur, initial encounter ([facility]) DISPOSITION Admit 11/06/2022 03:22:00 PM [...] Austyn Mccann DO 11/06/22 1523 [facility] [id number] Telephone encounter Note* Telephone Encounter - DB Kohli CNP - 10/27/2022 11:01 AM EDT With normal HPV and Pap I left a message encouraged patient to call back with any questions or concerns [facility] [address] Phone: [phone]) 478-428808-09-2023 Miscellaneous Notes* Telephone Encounter - DB Kohli CNP - 10/27/2022 11:01 AM EDT With normal HPV and Pap I left a message encouraged patient to call back with any questions or concerns documented in this encounterSThe Christ HospitalWljrvf88-33-4667 Miscellaneous Notes* Telephone Encounter - Whit Shay LPN - 10/22/2022 1:01 PM EDT Last appointment: 09/15/22 Next appointment: 03/17/23 Pharmacy verified in [place]. Refill(s) requested: Requested Prescriptions Pending Prescriptions Disp Refills sertraline (ZOLOFT) 100 mg tablet [Pharmacy Med Name: SERTRALINE HCL 100 MG TABLET] 180 tablet 1 Sig: TAKE 2 TABLETS BY MOUTH EVERY DAY Order(s) pended. Please advise. Whit Shay LPN, CMA documented in this encounterMercy Health St. [facility]08-03-2023 Miscellaneous Notes* Telephone Encounter - Whit Shay LPN - 10/21/2022 12:55 PM EDT Last appointment: 09/15/22 Next appointment: 03/17/23 Pharmacy verified in [facility]. Refill(s) requested: Requested Prescriptions Pending Prescriptions Disp Refills oxyCODONE-acetaminophen (PERCOCET) 5-325 mg tablet 134 tablet 0 Sig: Take 1 tablet by mouth every 4 hours as needed for pain for up to 30 days. Order(s) pended. Please advise. Whit Shay LPN, CMA documented in this encounterMercy Health St. [facility]08-02-2023 History of Present illness Narrative* Kisha Pepe APRN - MOTION PICTURE SET GRIP - 10/20/2022 2:00 PM EDT @LOGOIMAGE@ Chief Complaint Patient presents with Follow-up Pt has no concerns HISTORY OF THE PRESENT ILLNESS: Gonzalo Starkssumeetbenji is a 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 Gonzalo Deluca Gonzalo Deluca is a 64 y.o. with [...] recognition. I apologize for minor errors in tube mounter which may be present. documented in this [facility]06-28-2023 History of Present illness Narrative* Melva Sandoval PA-C - 09/15/2022 2:46 PM EDT Gonzalo Deluca is a 66 year old female here today for routine follow up. COPD: Lungs feel junky. Increased sob since air quality became poor. +productive cough. Requesting prednisone and antibiotic. Has appt with filing or registry clerk in [place] in September. Declines antitrypsin blood draw. Using [...] 1971 Quit date: 2018 Years since quittin.4 Smokeless tobacco: Never Tobacco [...] and verbalized understanding. Melva Sandoval PA-C * aRyo Roman Ma - 09/15/2022 2:40 PM EDT ALPHA-1 ANTITRYPSIN DEFICIENCY SCREENING Never done MAMMOGRAM Never done COLORECTAL CANCER SCREENING Never done PNEUMOCOCCAL: 66+(2 - PCV) due on 03/11/2018 BONE DENSITY Never done documented in this encounterMercy Health St. [facility]05-12-2023 Miscellaneous Notes* Telephone Encounter - Silvia Trejo Ma - 07/30/2022 11:26 AM EDT Pharmacy verified in [place] Patient has been identified by name and [...] Trejo Ma documented in this encounterMercy Health St. [facility]05-09-2023 Miscellaneous Notes* Telephone Encounter - Whit Shay LPN - 07/27/2022 3:24 PM EDT Last appointment: 06/03/22 Next appointment: 09/03/22 Pharmacy verified in [facility]. Refill(s) requested: Requested Prescriptions Pending Prescriptions Disp [...] LPN, CMA documented in this encounterMercy Health St. [facility]04-14-2023 Miscellaneous Notes* Telephone Encounter - Melva Sandoval PA-C - 07/02/2022 3:24 PM EDT Noted. Melva Sandoval PA-C * Telephone Encounter - Imelda Hull Pss - 07/02/2022 3:11 PM EDT Laurie HARRISON from [facility] [employer] [facility] is calling Herminia Case MD today to inform provider as an Patient Update (Cancelled her home OT visit today due to illness )please be advised. Patient was not feeling well. [phone]. Patient has been identified by name and birthdate. Duration of symptoms: N/A Person calling: Laurie HARRISON Call patient at: n/a [phone] (home) [phone] (cell) Was an appointment scheduled: No Closing statement: Results or non-symptom based questions: Thank you for calling [facility], your call will be returned within the next business day. Imelda Hull Pss documented in this encounterMercy Health St. Rita'[facility]04-13-2023 Miscellaneous Notes* Telephone Encounter - Whit Shay LPN - 07/01/2022 3:25 PM EDT Request completed and faxed. * Telephone Encounter - Herminia Case MD - 07/01/2022 3:00 PM EDT Done. * Telephone Encounter - Whit Shay LPN - 07/01/2022 10:35 AM EDT Type of letter/form/fax request - Home Health Care Orders Form received from [facility] on 06/30/22 floor and placed on MD desk () for completion. Completed form needs to be faxed to [phone]. Route to [place] when form completed for processing documented in this encounterMercy Health St. [facility]04-12-2023 Miscellaneous Notes* Telephone Encounter - Ruddy Moreno RN - 06/30/2022 7:20 PM EDT Laurie from [facility] informed. Advised to call back with any further concerns or questions. * Telephone Encounter - Melva Sandoval PA-C - 06/30/2022 7:13 PM EDT I am not aware of any concerning interactions. Melva Sandoval PA-C * Telephone Encounter - Ruddy Moreno RN - 06/30/2022 7:07 PM EDT Laurie, OT [facility]. Their computer program alerted her to "possible interaction" and they have to call and notify provider with all alerts. There are no concerns or symptoms to report. * Telephone Encounter - Melva Sandoval PA-C - 06/30/2022 7:02 PM EDT I am not aware of any interaction between the two. Can they clarify? Thanks Melva Sandoval PA-C * Telephone Encounter - Kita Christiansen [facility] - 06/30/2022 3:10 PM EDT Gonzalo Deluca, has Laurie /OT with [facility] is calling Herminia Case MD today to advise ofa possible medication interaction, the albuterol sulfate with the cyclobenzaprine. This is noted they are advised to call provider with this information Laurie [phone] (verified) Patient has been identified by name and birthdate. Duration of symptoms: N/A Person calling: OT Laurie with [facility] Call patient at: at home [phone] (home) [phone] (cell) Was an appointment scheduled: No Closing statement: Results or non-symptom based questions: Thank you for calling [facility], your call will be returned within the next business day. [facility] documented in this encounterMercy Health St. [facility]04-04-2023 Miscellaneous Notes* Telephone Encounter - [...] Rina, I am an occupational therapist with [employer]. I am callingabout patient Gonzalo Deluca, date [...] for me I can be reached at [phone]. Thank you" Spoke with patient Complaints of sinus pain and pressure with nasal congestion Yellow nasal discharge Productive cough, yellow green phlegm Onset 06/20/22 Reports nebulizer broke a few years ago and asking for replacement order to be sent to [facility] Will need aerosol prescription also Patient [...] eyes bilaterally 2. ONSET: Tuesday06/20/22 3. SEVERITY: 07/28 4. RECURRENT SYMPTOM: Occurs when weather changes 5. NASAL CONGESTION: yes, is able to breath through nose 6. NASAL DISCHARGE yellow discharge 7. FEVER: 99.0 yesterday evening 8. OTHER SYMPTOMS: short of breath with activity 9. : NA Protocols used: Sinus Pain or [id number] documented in this encounterMercy Health St. [facility]04-04-2023 Miscellaneous Notes* Telephone Encounter - Bernadette Rubin MA - 06/22/2022 3:55 PM EDT Last appointment: 06/03/22 Next appointment: 09/03/22 Pharmacy verified in [facility]. Refill(s) requested: Requested Prescriptions Pending Prescriptions Disp Refills albuterol (PROVENTIL) 2.5 mg /3 mL (0.083 %) nebulizer solution [Pharmacy Med Name: ALBUTEROL SUL 2.5 MG/3 ML SOLN] 90 mL 1 Sig: INHALE 3 ML VIA NEBULIZER EVERY 4 HOURS NEEDED FOR WHEEZE OR FOR SHORTNESS OF BREATH Order(s) pended. Please advise. Bernadette Rubin MA, SAW GRINDER documented in this encounterMercy Health St. [facility]04-04-2023 Miscellaneous Notes* Telephone Encounter - Whit Shay LPN - 06/22/2022 1:16 PM EDT Request completed and faxed. * Telephone Encounter - Herminia Case MD - 06/22/2022 12:59 PM EDT Done. * Telephone Encounter - Whit Shay LPN - 06/22/2022 11:38 AM EDT Type of letter/form/fax request - Home Health Care Orders Form received from [facility] on 06/21/22 floor and placed on MD desk () for completion. Completed form needs to be faxed to [phone]. Route to [place] when form completed for processing documented in this encounterMercy Health St. Rita'[facility]03-27-2023 Miscellaneous Notes* Telephone Encounter - Whit Shay LPN - 06/14/2022 12:32 PM EDT Request completed and faxed. * Telephone Encounter - Herminia Case MD - 06/14/2022 12:18 PM EDT Done. * Telephone Encounter - Whit Shay LPN - 06/14/2022 10:48 AM EDT Type of letter/form/fax request - Home Health Care Orders Form received from [facility] on 06/13/22 floor and placed on desk () for completion. Completed form needs to be faxed to [phone]. Route to [place] when form completed for processing documented in this encounterMercy Health St. Rita'S [facility]03-16-2023 History of Present illness Narrative* Herminia Case MD - 06/03/2022 3:34 PM EDT VIRTUAL VISIT PROGRESS NOTE This is a virtual visit using [employer] video visit. It required patient-provider interaction for themedical decision making as documented below. Gonzalo Deluca is a 66 year old female seen for follow up. Admitted 05/21-05/24 at [facility] none Fell on 05/21 Missed [...] Case MD documented in this encounterMercy Health St. Rita'[facility]03-14-2023 Miscellaneous Notes* Telephone Encounter - Whit Shay LPN - 06/01/2022 10:42 AM EDT Request completed and faxed. * Telephone Encounter - Herminia Case MD - 06/01/2022 9:53 AM EDT Done. * Telephone Encounter - Whit Shay LPN - 06/01/2022 9:28 AM EDT Type of letter/form/fax request - Home Health Care Orders Form received from [facility] on 05/28/22 floor and placed on MD desk () for completion. Completed form needs to be faxed to [phone]. Route to [place] when form completed for processing documented in this encounterCleveland [id number] Miscellaneous Notes* Telephone Encounter - Herminia Case MD - 05/31/2022 8:22 PM EDT Noted. * Telephone Encounter - Jessica Whitley Pss - 05/31/2022 4:09 PM EDT Rina is an occupational therapist for [facility] and is calling to let Dr. Case know that the patient cancelled her occupational therapy visit last and has put the therapist off until Tuesday (although she has not set up a time yet). Patient's occupational therapy is delayed. Rina [phone] documented in [address]Mer[address] Health [address]. [facility]03-06-2023 Note* Care Coordination - Janet [...] Plan for pt to discharge home with C. TCC to assist and followas needed. [facility] FoundationEewtwb85-72-5400 Note* Care Coordination - Janet Jean RN - 05/24/2022 11:11 AM EST Pt remains on 1E, plan for discharge today. Spoke with pt at bedside, she states she wants to discharge home with daughter. THNAIA notified, pt confirms she has transportation home and they will bring her 02 to pick her up. Wears 2L [place]. Plan for pt to discharge home with HHC. TCC to assist and followas needed. [facility] FoundationEnncwq77-78-3999 Miscellaneous Notes* Care Coordination - Janet Jean [...] : 1955 All Providers Sent Referral Name: [email or web address] Phone: [phone] Address: [address] [place] [address] * Home Care - Mahsa Castro RN - 05/23/2022 2:03 PM EST Start PACC Note Home Health Referral Educated patient on Home Care and services available. Patient offered choice of available HHC and agreeable to PT/OT services with [employer] [facility] - Home [facility]. Care Types: [...] is noted as yes - consider a PIZZA HUT ASSISTANT evaluation once the patient returns home. START PATIENT REGISTRATION INFORMATION Order Information Order Signing Physician: Teresa Cedillo MD Service Ordered RN ?: No Service Ordered PT ?: Yes Service Ordered OT ?: Yes Service Ordered ST ?: No Service Ordered PIZZA HUT ASSISTANT?:No Service Ordered OIL WELL SERVICES DISPATCHER?: No Following Physician: HERMINIA CASE MD Following Physician Overseeing Physician: HERMINIA CASE MD (Required for Residents only) Agreeable to Follow? Office closed Date/Time of Call 05/23/22 2:04 PM Care Coordination SOC Call from [facility] Required?: No Same Day SOC?: No Primary Care Physician: HERMINIA CASE MD Primary Care Physician Primary Care Physician Address: [address] [place] [id number] Visit Instructions: N/A Service Discharge Location Type: Home with Home Health Care Service Facility Name: N/A Service Floor Facility: N/A Service Room No: N/A Demographics Patient Last Name: Yosi Patient First Name: Gonzalo Language/Communication Barrier: n/a Service Address: [address] [place], [place] [address] Service City: [facility] ST: [place] Service ZIP: [address] Service (home) Other phone numbers: Telephone Information: Emergency Contact: Extended Emergency Contact Information Primary Emergency Contact: YosiKarishma Relation: Child Secondary Emergency Contact: Jace Deluca [place] Relation: Child Admission Information Admit Date: 05/21/2022 Patient status at discharge: Observation Caregiver Information Caregiver First Name: Karishma Caregiver Last Name: Yosi Caregiver Relationship to Patient dtr Caregiver Caregiver Notes: N/A Power Union[employer] List No END PATIENT REGISTRATION INFORMATION Pt [...] side Discharge Date: 05/23/22 Referral Source-PACC: (Hospital/Unit): [facility] / B1-147/B1-147 B End PACC Note * Care Coordination - Francesca Gurrola RN - 05/22/2022 4:48 PM EST Care Managment Initial Assessment Date: 05/22/2022 Patient Name: Gonzalo Deluca : 1955 Patient Information Source of Information: Patient Name/Contact Information: KARISHMA DELUCA [phone] DAUGHTER Cognition/Language: WFL - Within Functional Limits Permission given to speak with patient risk control representative/caregiver as indicated: Yes Confirmation of Payer with patient/family: Yes Payer Name: [facility] DUAL COMPLETE [place]: No Confirmation of Primary Care Physician: Confirmed [...] Prescription Coverage: Yes Pharmacy Used: [facility] Medication Management: Prescription pick-up Who assists with [...] expects to be discharged to: HOME WITH [facility] Discharge Planning Actions: Continue to follow Patient's Choice Rights and [employer] and Collaborative Relationships Disclosed as Indicated for Post-Acute Care: NA Interdisciplinary Team Engagement: Home Health Care, PT/OT Social Work Referral for: Additional Information: Admitted from home following a fall. Sustained right shoulder and elbow fracture. Admitted to [facility] ortho consulted, has sling in place to right arm. Pt/ot and pain control. Discharge preparation checklist reviewed with patient. Has prescription coverage and able to afford medications. Reviewed therapy evals and recommendations of snf with patient and she is electing to discharge to home with [facility]. informatics physician liaison updated via [facility]. Patient states lives at home with her daughter, prem's boyfriend, and her 6 year granddaughter. States her daughter plans on taking FMLA and staying with her while she recovers. Patient does wear oxygen at 2.5 liters at home cont. Denies anticipating any additional needs upon discharge. Discharge plan home with [facility] when medically stable. Anticipate probable discharge in the am.. Francesca Gurrola RN * Care Plan - Nicole Swift RN - 05/22/2022 3:59 PM EST Problem: Musculoskeletal - Adult Goal: Return mobility to safest level of function 05/22/2022 155 by Nicole Swift RN Outcome: Progressing 05/22/2022 1558 by Nicole Swift RN Outcome: Progressing Goal: Maintain proper alignment of affected body part 05/22/2022 155 by Nicole Swift RN Outcome: Progressing 05/22/2022 155 by Nicole Swift RN Outcome: Progressing Goal: [...] of falls Outcome: Progressing documented in this [facility]03-06-2023 Hospital course Narrative* Teresa Cedillo MD - [...] [facility]. SIGNIFICANT DIAGNOSTIC STUDIES: [...] Complexity: follow up within 7-14 calendar days ([address]29) [] Severe Complexity: follow up within 7 calendar days ([address]166) FOLLOW UP TESTING, PENDING RESULTS OR REFERRALS AT TRANSITIONAL CARE VISIT: [] Yes [] No PENDING STUDIES: No DISPOSITION: Home FACILITY/HOME CARE AGENCY NAME: Follow up with Betsey Gresham MD [address] [place] [phone] Schedule an appointment as soon as possible for a visit in 3 week(s) Herminia Case MD [address] [place] [phone] Schedule an appointment as soon as possible [...] MD 05/24/2022, 10:00 AM documented in this [facility]03-06-2023 History of Present illness Narrative* Martita Ervin PTA - 05/24/2022 8:39 AM EST Physical Therapy Facility/Department: [facility] Physical Therapy Daily Treatment Note NAME: [...] if she chooses togo home would require / asisst which she said that she has. [...] Bronchitis, Cancer (CMS/HCC) (HCC), Cervical cancer (CMS/HCC) (HCC), Chest pain, COPD (chronic obstructive pulmonary disease) ([facility]), DDD (degenerative disc disease), cervical, Defect, retina, with detachment, DJD (degenerative joint disease), lumbar, Emphysema lung (HCC), Former smoker, Hematuria, Hypokalemia, Lung nodules, Osteoporosis, Palpitations, Pneumonia, Recurrent major depression ([facility]), Sciatica, Thoracic compression fracture ([facility]), and Vitamin D deficiency. She [...] but no LOB noted. Distance (ft) 1: [id number] Comments 1: O2 after 50ft x 1 [...] Inpatient Mobility Raw Score: 16 [facility]ility [facility] G-Code Modifier: CK Goals Encounter Problems [...] note were not included. Hospitalist Progress Note 05/23/[id number]: Please message me for patient care issues. [phone]: Please message [facility] Hospitalist for any issues. Subjective: Admit Date: 05/21/2022 PCP: HERMINIA CASE MD Room#: B1-147/B1-147 B Interval History: Remains on oxygen. Tolerating diet. Pain controlled. Denies chest pain, sob, abdominal pain, nausea, vomiting, diarrhea, constipation, fevers, or chills. She is weak. Still does notwant SNF/FBT but does not feel ready to go home today. D/w pt and RN separately. Adult diet Regular @[id number]@ 24HR INTAKE/OUTPUT: No intake or output data [...] PLT 339 238 248 BMP: Recent Labs 05/21/2252505/22/2245005/23/22 0058 NA 138 137 138 K 4.2 [...] Extended Emergency Contact Information Primary Emergency Contact: RaudelsumeetKarishma leblanc Relation: Child Secondary Emergency Contact: Jace Deluca Relation: Child TERESA CEDILLO MD Division of Hospitalist Medicine [facility] PAGER: Epic chat * Andres [...] in 2-3 weeks as outpatient. * Griselda Mcfarlane, STAMP PAD FINISHER - 05/23/2022 8:34 AM EST Physical Therapy Facility/Department: [facility] 1 E Physical Therapy Daily Treatment [...] Allergic rhinitis, Arthritis, Asthma, Bronchitis, Cancer (CMS/HCC) ([facility]), Cervical cancer (CMS/HCC) ([facility]), Chest pain, COPD (chronic obstructive pulmonary disease) ([facility]), DDD (degenerative disc disease), cervical, Defect, retina, with detachment, DJD (degenerative joint disease), lumbar, Emphysema lung (HCC), Former smoker, Hematuria, Hypokalemia, Lung nodules, Osteoporosis, Palpitations, Pneumonia, Recurrent major depression ([facility]), Sciatica, Thoracic compression fracture ([facility]), and Vitamin D deficiency. She [...] 05/22/2022 2:44 PM EST Physical Therapy Facility/Department: [facility] Physical Therapy Daily Treatment Note NAME: [...] Allergic rhinitis, Arthritis, Asthma, Bronchitis, Cancer (CMS/HCC) ([facility]), Cervical cancer (CMS/HCC) ([facility]), Chest pain, COPD (chronic obstructive pulmonary disease) ([facility]), DDD (degenerative disc disease), cervical, Defect, retina, with detachment, DJD (degenerative joint disease), lumbar, Emphysema lung ([facility]), Former smoker, Hematuria, Hypokalemia, Lung nodules, Osteoporosis, Palpitations, Pneumonia, Recurrent major depression ([facility]), Sciatica, Thoracic compression fracture ([facility]), and Vitamin D deficiency. She [...] Inpatient Mobility Raw Score: 14 [facility]ility [facility] G-Code Modifier: CL Goals Encounter Problems [...] were not included. Hospitalist Progress Note 05/22/2022 [phone]: Please message me for patient care issues. [phone]: Please message [facility] Hospitalist for any issues. Subjective: Admit Date: 05/21/2022 PCP: HERMINIA CASE MD Room#: B1-147/B1-147 B Interval History: Pain controlled. Tolerating diet. Weak. Denies chest pain, sob, abdominal pain, nausea, vomiting, diarrhea, constipation, fevers, or chills. D/w pt Adult diet Regular @[id number]@ 24HR INTAKE/OUTPUT: No intake or output data [...] major depression (HCC) Sciatica Thoracic compression fracture ([facility]) Vitamin D deficiency LABS: CBC: Recent Labs 03/0352505/22/22450 WBC 12.1* 7.5 RBC 4.09 3.47* HGB 12.5 10.8* HCT 39.0 33.0* MCV 95.4 95.1 RDW 14.0 14.0 PLT 339 238 BMP: Recent Labs 05/21/2252505/22/22450 NA 138 137 K 4.2 4.2 CL [...] chloride, 100 mL/hr, Last Rate: 100 mL/hr (05/21/22529) atorvastatin, 40 mg, Oral, Nightly buPROPion XL, [...] TERESA CEDILLO MD Division of Hospitalist Medicine [facility] PAGER: Epic chat * Andres [...] 05/21/2022 3:31 PM EST Physical Therapy Facility/Department: [facility] ED Physical Therapy Initial Evaluation NAME: [...] Bronchitis, Cancer (CMS/HCC) (HCC), Cervical cancer (CMS/HCC) (HCC), Chest pain, COPD (chronic obstructive pulmonary disease) ([facility]), DDD (degenerative disc disease), cervical, Defect, retina, with detachment, DJD (degenerative joint disease), lumbar, Emphysema lung ([facility]), Former smoker, Hematuria, Hypokalemia, Lung nodules, Osteoporosis, Palpitations, Pneumonia, Recurrent major depression ([facility]), Sciatica, Thoracic compression fracture ([facility]), and Vitamin D deficiency. She has no past medical history of Blood circulation, collateral, Chronic kidney disease, Clotting disorder (CMS/HCC) ([facility]), Disease of blood and blood forming organ, GERD (gastroesophageal reflux disease), Liver disease, Movement disorder, Other disorders of kidney and ureter in diseases classified elsewhere, Seizures (CMS/HCC) ([facility]), or Syncope and collapse. has [...] Independent (no device) Transfer Assistance: Independent Active Ibm Mainframe Developer: No Additional Comments: daughter works Objective Observation/Palpation [...] Inpatient Mobility Raw Score: 12 Mobility Inpatient CMS G-Code Modifier: CL Goals [...] 05/21/2022 3:27 PM EST Occupational Therapy Facility/Department: [facility] ED Occupational Therapy Initial Evaluation NAME: [...] Allergic rhinitis, Arthritis, Asthma, Bronchitis, Cancer (CMS/HCC) ([facility]), Cervical cancer (CMS/HCC) ([facility]), Chest pain, COPD (chronic obstructive pulmonary disease) ([facility]), DDD (degenerative disc disease), cervical, Defect, retina, with detachment, DJD (degenerative joint disease), lumbar, Emphysema lung ([facility]), Former smoker, Hematuria, Hypokalemia, Lung nodules, Osteoporosis, Palpitations, Pneumonia, Recurrent major depression (HCC), Sciatica, Thoracic compression fracture (HCC), and Vitamin [...] Independent (no device) Transfer Assistance: Independent Active Ibm Mainframe Developer: No Additional Comments: daughter works Objective Gross [...] is seen and examined, admitted by the sales support advisor early a.m., see H&P for details. Patient [...] 05/21/2022 7:43 AM EST Occupational Therapy Facility/Department: [facility] ED Occupational Therapy Initial Evaluation NAME: [...] 05/21/2022 7:40 AM EST Physical Therapy Facility/Department: [facility] ED Physical Therapy Initial Evaluation NAME: Gonzalo Starksyahir : 1955 Date of Service: 05/21/2022 PT/OT evaluation orders received and chart review completed. Pt found to have R proximal humerus fracture and possible R elbow occult right osseous fracture. Ortho consult pending. Will hold for updated POC and weight bearing status prior to initiating evaluation. Marian Mendosa PT documented in this [facility]03-05-2023 Plan of care note* Care Plan - [...] free of falls Outcome: Progressing [id number] Plan of care note* Care Plan - [...] 1802 by Nicole Swift RN Outcome: Progressing [facility] [id number] Note* Care Coordination - Unknown Case Management - 05/23/2022 2:13 PM EST Patient Choice Patient Name: GONZALO DELUCA Date of : 1955 All Providers Sent Referral Name: [email or web address] [place] Phone: [phone] Address: [address] [place], [place] [address] [facility] [id number] Note* Care Coordination - Unknown Case Management - 05/23/2022 2:13 PM EST Patient Choice Patient Name: GONZALO DELUCA Date of : 1955 All Providers Sent Referral Name: [email or web address] [place] Phone: [phone] Address: [address] [place], [place] [address] [facility] [id number] Note* Home Care - Mahsa Castro RN - 05/23/2022 2:03 PM EST Start PACC Note Home Health Referral Educated patient on Home Care and services available. Patient offered choice of available HHC and agreeable to PT/OT services with [email or web address]. Care Types: [...] is noted as yes - consider a PIZZA HUT ASSISTANT evaluation once the patient returns home. START PATIENT REGISTRATION INFORMATION Order Information Order Signing Physician: Teresa Cedillo MD Service Ordered RN ?: No Service Ordered PT ?: Yes Service Ordered OT ?: Yes Service Ordered ST ?: No Service Ordered PIZZA HUT ASSISTANT?:No Service Ordered OIL WELL SERVICES DISPATCHER?: No Following Physician: HERMINIA CASE MD Following Physician Overseeing Physician: HERMINIA CASE MD (Required for Residents only) Agreeable to Follow? Office closed Date/Time of Call 05/23/22 2:04 PM Care Coordination SOC Call from [facility] Required?: No Same Day SOC?: No Primary Care Physician: HERMINIA CASE MD Primary Care Physician Primary Care Physician Address: [address] [place] [address] / [facility] [address] Visit Instructions: N/A Service Discharge Location Type: Home with Home Health Care Service Facility Name: N/A Service Floor Facility: N/A Service Room No: N/A Demographics Patient Last Name: Yosi Patient First Name: Gonzalo Language/Communication Barrier: n/a Service Address: [address] [place] [address] Service City: [facility] [place]: [place] Service ZIP: [address] Service (home) Other phone numbers: Telephone Information: Emergency Contact: Extended Emergency Contact Information Primary Emergency Contact: Karishma Deluca Relation: Child Secondary Emergency Contact: Jace Deluca [place] Relation: Child Admission Information Admit Date: 05/21/2022 Patient status at discharge: Observation Caregiver Information Caregiver First Name: Karishma Caregiver Last Name: Yosi Caregiver Relationship to Patient dtr Caregiver Caregiver Notes: N/A Power [employer] List No END PATIENT REGISTRATION INFORMATION Pt [...] side Discharge Date: 05/23/22 Referral Source-PACC: (Hospital/Unit): [facility] / B1-147/B1-147 B End PACC Note [employer] [id number] Note* Home Care - Mahsa Castro RN - 05/23/2022 2:03 PM EST Start PACC Note Home Health Referral Educated patient on Home Care and services available. Patient offered choice of available HHC and agreeable to PT/OT services with [email or web address]. Care Types: [...] is noted as yes - consider a PIZZA HUT ASSISTANT evaluation once the patient returns home. START PATIENT REGISTRATION INFORMATION Order Information Order Signing Physician: Teresa Cedillo MD Service Ordered RN ?: No Service Ordered PT ?: Yes Service Ordered OT ?: Yes Service Ordered ST ?: No Service Ordered PIZZA HUT ASSISTANT?:No Service Ordered OIL WELL SERVICES DISPATCHER?: No Following Physician: HERMINIA CASE MD Following Physician Overseeing Physician: HERMINIA CASE MD (Required for Residents only) Agreeable to Follow? Office closed Date/Time of Call 05/23/22 2:04 PM Care Coordination SOC Call from [facility] Required?: No Same Day SOC?: No Primary Care Physician: HERMINIA CASE MD Primary Care Physician Primary Care Physician Address: [address] [place], [place] [id number] Visit Instructions: N/A Service Discharge Location Type: Home with Home Health Care Service Facility Name: N/A Service Floor Facility: N/A Service Room No: N/A Demographics Patient Last Name: Yosi Patient First Name: Gonzalo Language/Communication Barrier: n/a Service Address: [address] Service City: [facility] ST: [place] Service ZIP: [address] Service (home) Other phone numbers: Telephone Information: Emergency Contact: Extended Emergency Contact Information Primary Emergency Contact: Karishma Deluca Relation: Child Secondary Emergency Contact: Jace Deluac Relation: Child Admission Information Admit Date: 05/21/2022 Patient status at discharge: Observation Caregiver Information Caregiver First Name: Karishma Caregiver Last Name: Yosi Caregiver Relationship to Patient dtr Caregiver Caregiver Notes: N/A [employer] List No END PATIENT REGISTRATION INFORMATION [...] side Discharge Date: 05/23/22 Referral Source-PACC: (Hospital/Unit): [facility] / B1-147/B1-147 B End PACC Note [id number] Hospital Discharge instructions* Discharge Instr - Activity* Teresa Cedillo MD - 05/23/2022 12:34 PM EST Non weight bearing right upper extremity Continue shoulder immobilizer * Discharge Instr - Diet* Teresa Cedillo MD - 05/23/2022 12:35 PM EST Regular diet * Discharge Instr - Other Orders* Mahsa Castro RN - 05/23/2022 2:03 PM EST Discharging to Facility/ Agency [facility] Address: [address] [place] [address] * Discharge Instr - SHAMA* Deanna Romero [...] Child Secondary Emergency Contact: YosiJace Relation: Child Past Surgical History: Past Surgical History: Procedure Laterality Date CYSTOSCOPY 01/12/2017 OFFICE PROCEDURE CYSTOSCOPY 02/11/2017 C&P bladder biopsy EYE SURGERY detached retina 1994 HYSTERECTOMY 11/06/2019 ABDOMINAL RADICAL HYSTERECTOMY WITH BSO AND PELVIC LYMPH; DR[facility] ZIYAD MENENDEZ [facility] OTHER SURGICAL HISTORY Left 12/19/2019 [...] breath Supplemental oxygen dependent Thoracic compression fracture ([facility]) PNA (pneumonia) H/O: CVA (cerebrovascular accident) Chronic [...] 2.6 oz) Mental Status: {SHAMA Patient Mental Status:88564} IV Access: {SHAMA IV Access:84259} Nursing Mobility/ADLs: Walking {YANETH ADL:::"Independent"} Transfer {YANETH ADL:::"Independent"} Bathing {YANETH ADL:::"Independent"} Dressing {YANETH ADL:::"Independent"} Toileting {YANETH ADL:::"Independent"} Feeding {YANETH ADL:::"Independent"} User Experience Lead {YANETH ADL:::"Independent"} Med Delivery {yes/no:37260} Wound Care Documentation and Therapy: Wound/Incision 05/21/22 Traumatic Eye Right (Active) Site Assessment Swelling 05/24/22 0755 Odor None 05/23/22 0941 Drainage Amount None 05/24/22 0755 Primary Dressing Open to air 05/24/22 0755 Number of days: 2 Wound/Incision 05/21/22 Traumatic Wrist Left;Posterior (Active) Site Assessment Brent 05/24/22 0755 Odor None 05/24/22 0755 Drainage Amount None 05/24/22 0755 Primary Dressing Steri-strips 05/24/22 0755 Dressing Status Dry;Intact 05/24/22 0755 Number of days: 2 Elimination: Continence: Bowel: {yes/no:65024} Bladder: {yes/no:24527} Urinary Catheter: {SHAMA Urinary Catheter:50195} Colostomy/Ileostomy/Ileal Conduit: {YES / NO:83672} Date of Last BM: No intake or output data in the 24 hours ending 05/24/22 1049 No intake/output data recorded. Safety Concerns: {SHAMA Safety Concerns:43182} Impairments/Disabilities: {SHAMA Impairments/Disabilities:01724} Nutrition Therapy: Current Nutrition Therapy: {SHAMA Diet List:69536} Routes of Feeding: {routes of feedin} Liquids: {liquid consistency:67515} Daily Fluid Restriction: {daily fluid restriction:82759} Last Modified Barium Swallow with Video (Video Swallowing Test): {done not done:60749} Treatments at the Time of Hospital Discharge: Respiratory Treatments: Oxygen Therapy: {Therapy; copd oxygen:47909} Ventilator: {SHAMA Ventilator:67184} Rehab Therapies: {GEN THERAPY DISCIPLINE SCAL:5395458} Weight Bearing Status/Restrictions: {POD WEIGHT BEARIN} Other Medical Equipment (for information only, NOT a DME order): {Assistive Devices DME:62928} Other Treatments: Patient's personal belongings (please select all that are sent with patient): {SHAMA Patient Belongings:25898} RN SIGNATURE: {E-signature:73724} CASE MANAGEMENT/SOCIAL WORK SECTION Inpatient Status Date: Readmission Risk Assessment Score: Predictive Model Details Model IP RISK OF UNPLANNED READMISSION [[id number]] is not released. No score information can be retrieved Discharging to Facility/ Agency Name: Address: Phone: Fax: Dialysis Facility (if applicable) Name: Address: Dialysis Schedule: Phone: Fax: Credit Report Checker/External Grinder signature: {E-signature:98371} PHYSICIAN SECTION Prognosis: {Rehab Prognosis:37118} Condition at Discharge: {Patient Condition:51845} Rehab Potential (if transferring to Rehab): {Rehab Prognosis:24182} Recommended Labs or Other Treatments After Discharge: Physician Certification: I certify the above information and transfer of Gonzalo Deluca is necessary for the continuing treatment of the diagnosis listed and that she requires {SHAMA Level of Care:06940} for {greater less than:90544} 30 days. Update Admission H&P: {SHAMA Changes in H&P:21619} PHYSICIAN SIGNATURE: {E-signature:91922} Discharging to Facility/ Agency Name: [facility] Address: [address] [place] [address] documented in this [facility]03-04-2023 Note* Care Coordination - Francesca Gurrola RN - 05/22/2022 4:48 PM EST Care Managment Initial Assessment Date: 05/22/2022 Patient Name: Gonzalo Deluca : 1955 Patient Information Source of Information: Patient Name/Contact Information: KARISHMA DELUCA [phone] DAUGHTER Cognition/Language: WFL - Within Functional Limits Permission given to speak with patient risk control representative/caregiver as indicated: Yes Confirmation of Payer with patient/family: Yes Payer Name: [facility] DUAL COMPLETE : No Confirmation of [...] Prescription Coverage: Yes Pharmacy Used: [facility] [place] Medication Management: Prescription pick-up Who assists with [...] expects to be discharged to: HOME WITH [facility] Discharge Planning Actions: Continue to follow [...] is electing to discharge to home with [facility]. informatics physician liaison updated via [facility]. Patient states lives at home with her daughter, prem's boyfriend, and her 6 year granddaughter. States her daughter plans on taking FMLA and staying with her while she recovers. Patient does wear oxygen at 2.5 liters at home cont. Denies anticipating any additional needs upon discharge. Discharge plan home with [facility] when medically stable. Anticipate probable discharge in the am.. Francesca Gurrola RN [facility] [id number] Note* Care Coordination - Francesca Gurrola RN - 05/22/2022 4:48 PM EST Care Managment Initial Assessment Date: 05/22/2022 Patient Name: Gonzalo Deluca : 1955 Patient Information Source of Information: Patient Name/Contact Information: KARISHMA DELUCA [phone] DAUGHTER Cognition/Language: WFL - Within Functional Limits Permission given to speak with patient risk control representative/caregiver as indicated: Yes Confirmation of Payer with patient/family: Yes Payer Name: [facility] D[facility] [place]: No Confirmation of Primary Care Physician: Confirmed [...] Living Prescription Coverage: Yes Pharmacy Used: [facility] [place] Medication Management: Prescription pick-up Who assists with [...] expects to be discharged to: HOME WITH [facility] Discharge Planning Actions: Continue to follow Patient's Choice Rights and [employer] and Collaborative Relationships Disclosed as Indicated for Post-Acute Care: NA Interdisciplinary Team Engagement: Home Health Care, PT/OT Social Work Referral for: Additional Information: Admitted from home following a fall. Sustained right shoulder and elbow fracture. Admitted to [facility] ortho consulted, has sling in place to right arm. Pt/ot and pain control. Discharge preparation checklist reviewed with patient. Has prescription coverage and able to afford medications. Reviewed therapy evals and recommendations of snf with patient and she is electing to discharge to home with [facility] services. informatics physician liaison updated via [facility]. Patient states lives at home with her daughter, prem's boyfriend, and her 6 year granddaughter. States her daughter plans on taking FMLA and staying with her while she recovers. Patient does wear oxygen at 2.5 liters at home cont. Denies anticipating any additional needs upon discharge. Discharge plan home with [facility] when medically stable. Anticipate probable discharge in the am.. Francesca Gurrola RN [facility] [id number] Plan of care note* Care Plan - [...] 1558 by Nicole Swift RN Outcome: Progressing [facility]03-03-2023 Plan of care note* Care Plan [...] will remain free of falls Outcome: Progressing [facility]03-03-2023 Consult note* Betsey Gresham MD - 05/21/2022 [...] the weekend if there is any issues. [facility]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 compression fracture, closed, initial encounter ([facility])- Primary Lumbar compression fracture, closed, initial encounter ([facility]) Fall, initial encounter Multiple falls Nondisplaced fracture of neck of left femur (HCC) documented in this encounter [facility] note* Diagnosis Compression fracture of body of thoracic vertebra (HCC) Other closed nondisplaced fracture of proximal end of right humerus with routine healing, subsequent encounter [facility]* Diagnosis PAUL (generalized anxiety disorder)- [...] disorder (HCC) documented [facility]* Diagnosis Moderate episode of recurrent major depressive disorder (HCC)- Primary Panlobular emphysema (HCC) Other emphysema documented [facility]* Diagnosis Age-related osteoporosis with current pathological fracture of left femur, initial encounter (HCC)- Primary documented [facility]* Diagnosis PAUL (generalized anxiety disorder) Generalized anxiety disorder [facility]* Diagnosis Compression fracture of body of thoracic vertebra (HCC) Other closed nondisplaced fracture of proximal end of right humerus with routine healing, subsequent encounter [facility]* Diagnosis Compression fracture of body of thoracic vertebra (HCC) Other closed nondisplaced fracture of proximal end of right humerus with routine healing, subsequent encounter documented in this encounter [facility] note* Diagnosis Encounter for screening mammogram for breast cancer [facility]* Diagnosis Compression fracture of body of thoracic vertebra (HCC) Other closed nondisplaced fracture of proximal end of right humerus with routine healing, subsequent encounter documented in this encounter [facility] note* Diagnosis Pulmonary emphysema, unspecified emphysema type (HCC) documented [facility]* Diagnosis Moderate episode of recurrent major depressive disorder (HCC) PAUL (generalized anxiety disorder) Generalized anxiety disorder documented in this encounter [facility] note* Diagnosis Moderate episode of recurrent major depressive disorder (HCC) PAUL (generalized anxiety disorder) Generalized anxiety disorder [facility]* Diagnosis Medication management Encounter for long-term (current) use of other medications documented in this encounter [facility] note* Diagnosis Moderate episode of recurrent major depressive disorder (HCC)- Primary Panlobular emphysema (HCC) Other emphysema Chronic respiratory failure with hypoxia (HCC) Chronic respiratory failure documented in this encounter [facility] note* Diagnosis Major depression, recurrent, chronic (HCC) Major depressive disorder, recurrent episode, unspecified documented in this encounter [facility] note* Diagnosis Bronchitis- Primary Bronchitis, not specified as acute or chronic COPD exacerbation (HCC) Obstructive chronic bronchitis with exacerbation documented in this encounter [facility] note* Diagnosis Compression fracture of body of thoracic vertebra (HCC) Other closed nondisplaced fracture of proximal end of right humerus with routine healing, subsequent encounter [facility] Diagnosis Herpes zoster without complication- Primary Herpes zoster without mention of complication [facility]* Diagnosis Compression fracture of body of thoracic vertebra (HCC) Other closed nondisplaced fracture of proximal end of right humerus with routine healing, subsequent encounter documented [facility]* Diagnosis Moderate episode of recurrent major depressive disorder (HCC) [facility]* Diagnosis Falls frequently- Primary Personal history of fall Near syncope Closed head injury, initial encounter Fall, initial encounter Compression fracture of T5 vertebra, initial encounter ([facility]) Compression fracture of T7 vertebra, initial encounter ([facility]) Compression fracture of T8 vertebra, initial encounter ([facility]) Compression fracture of L1 vertebra, initial encounter ([facility]) Severe malnutrition (CMS/HCC) (HCC) Nutritional marasmus Chronic back pain Unspecified backache COPD (chronic obstructive pulmonary disease) (HCC) Chronic airway obstruction, not elsewhere classified Supplemental oxygen dependent Dependence on supplemental oxygen Unintentional weight loss Loss of weight Debility Unspecified debility documented in this encounter [facility] note* Diagnosis OPENED IN ERROR- Primary To allow closing an encounter opened in error (used in Smart[employer]) documented [facility]* Diagnosis Pathological fracture of vertebra due to other osteoporosis with routine healing, subsequent encounter- Primary documented [facility]* Diagnosis Pulmonary emphysema, unspecified emphysema type (HCC) documented [facility]* Diagnosis Osteoporotic vertebral collapse, with routine healing, subsequent encounter- Primary [facility]* Diagnosis Fall, initial encounter- Primary Compression fracture of body of thoracic vertebra (HCC) documented in this encounter [facility] note* Diagnosis Moderate episode of recurrent major depressive disorder (HCC) documented [facility]* Diagnosis Compression fracture of body of thoracic vertebra (HCC) Other closed nondisplaced fracture of proximal end of right humerus with routine healing, subsequent encounter documented [facility]* Diagnosis Pulmonary emphysema, unspecified emphysema type (HCC) documented in [facility]* Diagnosis Osteoporotic vertebral collapse, with routine healing, subsequent encounter- Primary documented [facility]* Diagnosis Panlobular emphysema (HCC) Other emphysema Compression fracture of body of thoracic vertebra (HCC) Other closed nondisplaced fracture of proximal end of right humerus with routine healing, subsequent encounter documented [facility]* Diagnosis Age-related osteoporosis without current pathological fracture Senile osteoporosis [facility]* Diagnosis Panlobular emphysema (HCC) Other emphysema documented [facility]* Diagnosis Compression fracture of body of thoracic vertebra (HCC) Other closed nondisplaced fracture of proximal end of right humerus with routine healing, subsequent encounter documented in this encounter [facility]* Diagnosis PAUL (generalized anxiety disorder) Generalized anxiety disorder [facility]* Diagnosis Malignant neoplasm of exocervix (HCC)- Primary Malignant neoplasm of exocervix documented in this encounter [facility] note* Diagnosis Fall, initial encounter- Primary Fall, initial encounter Facial laceration, initial encounter Closed fracture of neck of right humerus, initial encounter Humeral head fracture, right, closed, initial encounter Humeral head fracture, right, closed, initial encounter documented in this encounter [facility] note* Diagnosis Compression fracture of body of thoracic vertebra (HCC) Other closed nondisplaced fracture of proximal end of right humerus with routine healing, subsequent encounter [facility]* Diagnosis Moderate episode of recurrent major depressive disorder (HCC) [facility]* Diagnosis Moderate episode of recurrent major depressive disorder (HCC) PAUL (generalized anxiety disorder) Generalized anxiety disorder [facility]* Diagnosis Pulmonary emphysema, unspecified emphysema type (HCC) documented in [facility]* Diagnosis Contusion of face, initial encounter- Primary documented in this encounter [facility] note* Diagnosis Compression fracture of body [...] encounter documented in this [facility]* Diagnosis Moderate episode of recurrent major depressive disorder (HCC) Compression fracture of body of thoracic vertebra (HCC) Other closed nondisplaced fracture of proximal end of right humerus with routine healing, subsequent encounter [facility] Diagnosis Panlobular emphysema (HCC)- Primary Other emphysema Moderate episode of recurrent major depressive disorder (HCC) Chronic respiratory failure with hypoxia (HCC) Chronic respiratory failure [facility] Diagnosis Compression fracture of body of thoracic vertebra (HCC) Other closed nondisplaced fracture of proximal end of right humerus with routine healing, subsequent encounter [facility] Diagnosis Chronic respiratory failure with hypoxia (HCC)- Primary Chronic respiratory failure Centrilobular emphysema (HCC) Other emphysema Adult failure to thrive Severe protein-calorie malnutrition (HCC) Other severe protein-calorie malnutrition documented in this [facility]* Diagnosis Chronic obstructive pulmonary disease, unspecified COPD type (HCC)- Primary Severe malnutrition (CMS/HCC) (HCC) Nutritional marasmus [facility] Diagnosis Adult failure to thrive- Primary [...] risk for delirium [facility] Diagnosis PAUL (generalized anxiety disorder) Generalized anxiety disorder documented [facility]* Diagnosis Hospital discharge follow-up- Primary Other follow-up examination Acute on chronic respiratory failure with hypoxia (HCC) Centrilobular emphysema (HCC) Aspiration pneumonia of left lower lobe, unspecified aspiration pneumonia type (HCC) Chronic obstructive pulmonary disease with acute lower respiratory infection (HCC) History of tobacco abuse Severe malnutrition (CMS/HCC) (HCC) Nutritional marasmus [facility]* Diagnosis Compression fracture of body of thoracic vertebra (HCC) Other closed nondisplaced fracture of proximal end of right humerus with routine healing, subsequent encounter [facility] Diagnosis Other specified complication of vascular prosthetic devices, implants and grafts, initial encounter (HCC)- Primary Poor venous access documented in this encounter [facility] note* Diagnosis Chronic obstructive pulmonary disease with acute lower respiratory infection (HCC) documented in this encounter [facility] noteNo assessment information availableWTuscarawas Hospital Work Phone: Evaluation note* Diagnosis Centrilobular emphysema (HCC)- Primary Chronic respiratory failure with hypoxia (HCC) History of tobacco abuse Severe malnutrition (CMS/HCC) (HCC) Nutritional marasmus Pulmonary nodule Other diseases of lung, not elsewhere classified documented in this encounter [facility] note* Diagnosis Centrilobular emphysema (HCC)- Primary Chronic respiratory failure with hypoxia (HCC) History of tobacco abuse Severe malnutrition (CMS/HCC) (HCC) Nutritional marasmus Pulmonary nodule Other diseases of lung, not elsewhere classified documented in this encounter [facility] note* Diagnosis COPD exacerbation (HCC)- Primary Obstructive chronic bronchitis with exacerbation COPD exacerbation (HCC) Obstructive chronic bronchitis with exacerbation Respiratory acidosis Acidosis Hypoxia Hypoxemia Tachycardia Unspecified tachycardia DDD (degenerative disc disease), cervical Degeneration of cervical intervertebral disc Moderate malnutrition (CMS/HCC) (HCC) Debility Unspecified debility At risk for delirium Anxiety and depression Cognitive deficits Unspecified persistent mental disorders due to conditions classified elsewhere Other chronic pain documented in this encounter [facility] ([place], [place]) Discharge instructions* Attachments The following attachments cannot be sent through Care Everywhere. * Acute Bronchitis Discharge Instructions, Adult (Indian) documented in this [facility] Discharge instructions* Attachments The following attachments cannot be sent through Care Everywhere. * Closed Head Injury Discharge Instructions (Indian) documented in this [facility] for referral (narrative)* Diagnostic Procedure Only (Routine) - Pending Review Specialty Diagnoses / Procedures Referred By Lisa t Referred To Contact [facility] Diagnoses Encounter for screening mammogram for breast cancer Procedures PAOLO SCREENING SCREENING MAMMOGRAPHY BI 2-VIEW BREAST INC Herminia Perkins MD [address] [place] [id number] [facility] [address] [place] [address] Referral ID Status Reason Start Date Expiration Date Visits Requested Visits Authorized [id number] Pending Review Auto-Generat ed Referral 07/14/2022 08/13/2023 1 1 [facility] for referral (narrative)* Diagnostic Procedure Only (Routine) - Pending Review Specialty Diagnoses / Procedures Referred By Lisa t Referred To Contact [facility] Diagnoses Encounter for screening mammogram for breast cancer Procedures PAOLO SCREENING SCREENING MAMMOGRAPHY BI 2-VIEW BREAST INC CAD Herminia Case MD [address] [place] [id number] [facility] [address] [place] [address] Referral ID Status Reason Start Date Expiration Date Visits Requested Visits Authorized [id number] Pending Review Auto-Generat ed Referral 06/22/2023 07/21/2024 1 1 [facility] for referral (narrative)No reason for referral information availableHarrison [facility] Work Phone: Reason for visit Narrative* Treatment Plan (Routine) Status Reason Specialty Diagnoses / Procedures Referred By Contact Referred To Contact Authorized Diagnoses Malignant neoplasm of exocervix (HCC) Poor venous access Ziyad Menendez MD [address] [place] [address] [facility] [address] [place] [address] [employer] Work Phone: Reason for visit Narrative* Treatment Plan and Therapy Plan (Routine) Status Reason Specialty Diagnoses / Procedures Referred By Contact Referred To Contact Authorized Diagnoses Malignant neoplasm of exocervix (HCC) Poor venous access Ziyad Menendez MD [address] [place] [address] [facility] [address] [place] [address] [employer] Work Phone: Reason for visit Narrative* Treatment Plan and Therapy Plan (Routine) - Pending Review Specialty Diagnoses / Procedures Referred By Contac t Referred To Contact Diagnoses Poor venous access Other specified complication of vascular prosthetic devices, implants and grafts, initial encounter (HCC) Herminia Case MD [address] [place] [address] [facility] [address] [place] [address] Referral ID Status Reason Start Date Expiration Date V isits Requested Visits Authorized [id number] Pending Review 08/06/2021 08/06/2022 1 1 [email or web address] Work Phone: Reason for visit Narrative* Imaging (Routine) - Closed Specialty Diagnoses / Procedures Referred By Contac t Referred To Contact Radiology Diagnoses Chronic obstructive pulmonary disease with acute lower respiratory infection (HCC) Procedures CT chest wo IV contrast Elyssa Tesfaye NP [address] [place] [address] Phone: tel: fax: Referral ID Status Reason Start Date Expiration Date Visits Re quested Visits Authorized [id number] Closed 08/20/2024 08/20/2025 1 1 [facility] Discharge Instructions * Pharmacy* Estee Pantoja RPH [...] doctor for further instructions HERMINIA CASE MD [phone] RED ZONE: Medical Alert Severe or unrelieved shortness of breath at rest Unrelieved chest pain Not able to do any activity because of breathing Not able to sleep because of breathing Confusion or you can't think clearly This Means You Should Call 911 Immediately documented in this encounter* Attachments The following attachments cannot be sent through Care Everywhere. * Compression Fracture: Spine (Indian) documented in this encounter* Instructions* Ankit Zaragoza [...] Real RN - 11/05/2019 Please bring your [facility] [employer] Surgical Information folder on the day of [...] through Care Everywhere. * Hysterectomy: Abdominal: Pre-op (Indian) * Oophorectomy: Pre-op (Indian) documented in this encounter* Instructions* Tani Joseph MD - 11/09/2019 Come back tomorrow for your ultrasound. If you have any chest pain or shortness of breath return tot emergency department immediately * Attachments The following attachments cannot be sent through Care Everywhere. * Edema: Leg and Ankle (Indian) documented in this encounter* Instructions* Jaspreet Lam [...] call and ask for the Interventional Radiologist stonecutter hand. IF YOU REPORT TO AN EMERGENCY ROOM, DOCTOR'S OFFICE OR HOSPITAL WITHIN 24 HOURS AFTER YOUR PROCEDURE, BRING THIS SHEET AND YOUR AFTER VISIT SUMMARY WITH YOU AND GIVE IT TO THE PHYSICIAN OR NURSE ATTENDING YOU.Implanted Port: What to Expect at Home Your Recovery Questions: [phone] You have had a procedure to implant [...] (before 7am or after 5 pm) call [phone] and ask for the Interventional Radiologist stonecutter hand. Where can you learn more? Go to [email or web address] and sign in to your [employer] account. Enter M256 in the Search Health Information box to learn more about Implanted Port: What to Expect at Home. If you do not have an account, please click on the "Sign Up Now" link. Current as of: August 15, 2015 Content Version: 11.2 [id number] [employer]. Care instructions adapted under license by [employer]. If youhave questions about a medical condition or this instruction, always ask your healthcare professional. [employer] disclaims any warranty or liability for your use of this information. documented in this encounter* Attachments The following attachments cannot be sent through Care Everywhere. * COPD: General Info (Indian) * Bronchitis (Indian) documented in this encounter* Discharge Instr - [...] most local grocery stores, pharmacies, and chain [employer] [employer]-stores. ? If you have any questions about your diet or nutrition, call the hospital and ask for the dietitian. General * Discharge Instr - Other Orders* Jessica Tubbs RN - 11/22/2019 1:27 PM EDT Your physician has ordered skilled home care services for you. Your home care will be provided by: [facility] [phone] * Attachments The following attachments cannot be sent through Care Everywhere. * Ischemic Stroke: General Info (Indian) documented in this encounter History of Present Illness * Francesca Snyder RCP - 08/04/2019 1:28 PM EDT [facility] Respiratory Care Department Progress Note SpO2 [...] EDT Hospitalist Progress Note 08/03/2019 2:56 PM [phone]: Please page me ([phone]) for patient care issues. [phone]: Please page [facility] night Hospitalist for any issues. Subjective: Admit Date: 08/02/2019 PCP: HERMINIA CASE MD Room#: [id number] Interval History: No overnight issues. Feels better. [...] of Hospitalist Medicine Inpatient Medical Services PAGER: [phone] documented in this encounter* Brandy Del Real [...] Report called to [facility]. Transfer back to [facility]. documented in this encounter* Imtiaz Mckeon RN [...] for lab draw, CBCdiff/CMP/Mag from port to [facility]. Pt just came from office visit with [...] Date: 11/21/2019 PCP: HERMINIA CASE MD Room#: [id number] Interval History: c/o feeling very anxious. Doesn't [...] 11/23/2019 11:46 AM EDT Physical Therapy Facility/Department: [facility] 4S TELEMETRY Initial Assessment NAME: Gonzalo Deluca [...] Chest pain, COPD (chronic obstructive pulmonary disease) ([facility]), DDD (degenerative disc disease), cervical, Defect, retina, with detachment, DJD (degenerative joint disease), lumbar, Emphysema lung (HCC), Former smoker, Hematuria, Hypokalemia, Lung nodules, Osteoporosis, Palpitations, Pneumonia, Recurrent major depression ([facility]), Sciatica, Thoracic compressionfracture ([facility]), and Vitamin D deficiency. has [...] Assistance: Independent(no device) Transfer Assistance: Independent Active Ibm Mainframe Developer: Yes Mode of Transportation: Car Occupation: On [...] in bed, Nurse notified AM-PAC Score AM-[facility] Inpatient Mobility Raw Score : 21 (11/23/19 1141) [facility] Inpatient T-Scale Score : 50.25 (11/23/19 114) Mobility Inpatient CMS 0-100% Score: 28.97 (11/23/19 114) Mobility Inpatient CMS G-Code Modifier : CJ (11/23/191140) [facility] Mobility Inpatient How much difficulty turning [...] climbing 3-5 steps with a railing?: Total [facility] Inpatient Mobility Raw Score : 21 [facility] Inpatient T-Scale Score : 50.25 Mobility [...] CT negative and MRI pending. Exam: AM-[facility] Assistance / Modification: mod I OT Education: [...] Chest pain, COPD (chronic obstructive pulmonary disease) ([facility]), DDD (degenerative disc disease), cervical, Defect, retina, with detachment, DJD (degenerative joint disease), lumbar, Emphysema lung (HCC), Former smoker, Hematuria, Hypokalemia, Lung nodules, Osteoporosis, Palpitations, Pneumonia, Recurrent major depression ([facility]), Sciatica, Thoracic compressionfracture ([facility]), and Vitamin D deficiency. has [...] pleasant and cooperative. General Comment Comments: Per RNjosefina for pt to participate in OT eval. [...] Assistance: Independent(no device) Transfer Assistance: Independent Active [employer]bm Mainframe Developer: Yes Mode of Transportation: Car Occupation: On [...] CMS 0-100% Score: 0 (11/23/191137) [facility] G-Code Modifier : CH (09/04/20 1138) Therapy Time Individual Concurrent Group Co-treatment Time In 1001(co-eval with PT) Time Out 1015 Minutes 14 Catalina Graff OT * Dayana Roman PT - 11/22/2019 2:59 PM EDT Physical Therapy Facility/Department: [facility] TELEMETRY Initial Assessment NAME: Gonzalo Deluca [...] Granados OT * Aparna Walter APRN - [employer]ION PI[employer] SET GRIP - 11/22/2019 2:07 PM EDT Hospitalist Progress Note 11/22/2019 2:07 PM Subjective: Admit Date: 11/21/2019 PCP: HERMINIA CASE MD Room#: [phone] Interval History: No overnight issues; feeling much [...] head/neck and MRI of the brain pending. COSMETICS AND TOILETRIES SALESPERSON screened; no diet texture change recommended at [...] Accumulation: 1 - Mild Extremities(+1-2 RLE Edema) Desk Pens Assembler Strength: Not Performed Estimated Daily Nutrient Needs: Energy (kcal): 3384-0638 kcals; Weight Used for Energy Requirements: Upper Tract(57kg) Protein (g): 57-68(1-1.2); Weight Used for Protein Requirements: Upper Tract(57kg) Fluid (ml/day): 1710 ml/day or per MD; Weight Used for Fluid Requirements: Upper Tract Nutrition Related Findings: +1-2 RLE edema; K+ [...] lb (70.3 kg)(150-155# in the last month) Upper Tract Body Weight: 125 lbs; % Upper Tract Body Weight 124.8 % BMI: 26 Adjusted [...] current diet Contact: [phone] * Amelie Esquivel, COSMETICS AND TOILETRIES SALESPERSON - 11/22/2019 9:57 AM EDT Speech Language Pathology Patient is on a General diet. Completed speech orders as per stroke protocol. Spoke with pt and completed speech screening. No obvious facial weakness, dysarthria, or language deficits. Amelie Esquivel M.A.JIMI/COSMETICS AND TOILETRIES SALESPERSON Speech-Language Pathologist documented in this encounter* Florencia [...] time restraints. Wants to be scheduled in [place] for cathflo this week. Pham aware and [...] FoundDocuments on File Type Date Recorded Patient Slitter Processed Film Expl anation Advance Directives and Living Will Power of Fire Lieutenant Marine Latest Code Status on File Code Status [...] Documents on File Type Date Recorded Patient Slitter Processed Film Expl anation ACP-Advance Directive ACP-Power of Fire Lieutenant Marine Latest Code Status on File Code Status Date Activated Date Inactivated Comments Full Code 11/06/2019 12:37 PM 11/08/2019 9:35 PM Full Code 11/06/2019 7:02 AM 11/06/2019 12:22 PM Full Code 08/03/2019 5:57 PM 08/04/2019 5:09 PM Full Code 10/17/2018 1:23 AM 10/18/2018 8:29 PM Full Code 06/05/2018 7:30 AM 06/07/2018 7:14 PM Documents on File Type Date Recorded Patient Slitter Processed Film Expl anation ACP-Advance Directive ACP-Power of Fire Lieutenant Marine Latest Code Status on File Code Status [...] Documents on File Type Date Recorded Patient Slitter Processed Film Expl anation Advance Directive(s) 09/12/2020 12:26 PM Documents on File Type Date Recorded Patient Slitter Processed Film Expl anation Advance Directive(s) 09/12/2020 12:26 PM [...] Documents on File Type Date Recorded Patient Slitter Processed Film Expl anation DNR (Do Not Resuscitate) 07/31/2024 3:36 PM [place] DNR Form Date Activated Date Inactivated Comments [...] Documents on File Type Date Recorded Patient Slitter Processed Film Expl anation DNR (Do Not Resuscitate) 07/31/2024 3:36 PM [place] DNR Form Date Activated Date Inactivated Comments [...] Documents on File Type Date Recorded Patient Slitter Processed Film Expl anation DNR (Do Not Resuscitate) 01/22/2025 1:49 PM [place] DNR Form DNR (Do Not Resuscitate) 07/31/2024 3:36 PM [place] DNR Form Date Activated Date Inactivated Comments 01/12/2025 1:14 PM 01/23/2025 1:11 AM Question Answer Comments ICU transfer: Yes Intubation: No Date Activated Date Inactivated Comments 07/31/2024 3:36 PM 08/08/2024 7:32 PM Question Answer Comments ICU transfer: Yes Intubation: Yes Date Activated Date Inactivated Comments 07/30/2024 11:13 PM 07/31/2024 3:36 PM Date Activated Date Inactivated Comments 09/20/2023 12:06 AM 09/22/2023 4:42 PM Date Activated Date Inactivated Comments 02/14/2023 12:41 AM 02/18/2023 10:38 PM Documents on File Type Date Recorded Patient Slitter Processed Film Expl anation DNR (Do Not Resuscitate) 01/24/2025 11:21 AM DNR (Do Not Resuscitate) 01/22/2025 1:49 PM [place] DNR Form DNR (Do Not Resuscitate) 07/31/2024 3:36 PM [place] DNR Form Date Activated Date Inactivated Comments 01/12/2025 1:14 PM 01/23/2025 1:11 AM Question Answer Comments ICU transfer: Yes Intubation: No Date Activated Date Inactivated Comments 07/31/2024 3:36 PM 08/08/2024 7:32 PM Question Answer Comments ICU transfer: Yes Intubation: Yes Date Activated Date Inactivated Comments 07/30/2024 11:13 PM 07/31/2024 3:36 PM Date Activated Date Inactivated Comments 09/20/2023 12:06 AM 09/22/2023 4:42 PM Date Activated Date Inactivated Comments 02/14/2023 12:41 AM 02/18/2023 10:38 PM Summary Purpose Family History No Family [...] Lower Extremity Venous Right Tani Joseph MD [address] [place] [address] Status Reason Specialty Diagnoses / Procedures Referre d By Contact Referred To Contact Closed Radiology Diagnoses Malignant neoplasm of exocervix (HCC) Procedures XA SPECIAL ANGIOGRAPHY PROCEDURE Ziyad Menendez MD [address] [facility] [place] [address] Status Reason Specialty Diagnoses / Procedures Referre d By Contact Referred To Contact Closed Radiology Diagnoses Malignant neoplasm of exocervix (HCC) Lung nodule seen on imaging study Procedures CT CHEST ABDOMEN PELVIS W CONTRAST Ziyad Menendez MD [address] [facility] [place] [address] Status Reason Specialty Diagnoses / Procedures Referre d By Contact Referred To Contact Open Radiology Diagnoses Abnormal CT of the chest Procedures CT Chest W Contrast Ziyad Menendez MD [address] [facility] [place] [address] Status Reason Specialty Diagnoses / Procedures Referred By Contact Referred To Contact Open Specialty Services Required Orthopedic Surgery Diagnoses Closed fracture of coccyx, initial encounter ([facility]) Lauren Lutz APRN - [employer]ION [employer]IP [address] [place] [address] [facility] [address] [address] [place] [address] [facility] Orthopedics [facility] [address] [place] [address] Specialty Diagnoses / Procedures Referred By Contac t Referred To Contact Pulmonary and Critical Care Medicine Diagnoses Panlobular emphysema (HCC) Chronic respiratory failure with hypoxia (HCC) Procedures CONSULT TO PULM/CRITICAL CARE OFFICE/OUTPATIENT [facility] 60-74 MINUTES Herminia Case MD [address] [place] [address] Referral ID Status Reason Start Date Expiration Date Visits Requested Visits Authorized [id number] Pending Review PCP Requested Referral 08/06/2021 08/06/2022 1 1 Specialty Diagnoses / Procedures Referred By Contac t Referred To Contact BR IMAGING Diagnoses Encounter for screening mammogram for malignant neoplasm of breast Procedures PAOLO SCREENING W CARON SCREENING DIGITAL BREAST TOMOSYNTHESIS BI SCREENING MAMMOGRAPHY BI 2-VIEW BREAST INC CAD Herminia Case MD [address] [place] [address] [facility] [address] [place] [address] Referral ID Status Reason Start Date Expiration Date Visits Requested Visits Authorized [id number] Pending Review Auto-Generat ed Referral 08/06/2021 09/05/2022 1 1 Specialty Diagnoses / Procedures Referred By Contac t Referred To Contact Radiology Diagnoses Malignant neoplasm of exocervix (HCC) Abnormal chest CT Procedures CT Chest W Contrast Ziyad Menendez MD [address] [facility] [place] [address] Referral ID Status Reason Start Date Expiration Date Visits Re quested Visits Authorized [id number] Closed 09/17/2021 09/17/2022 1 1 Specialty Diagnoses / Procedures Referred By Contac t Referred To Contact Gena Michaels, 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.[facility] [address] [place] [address] Referral ID Status Reason Start Date Expiration Date V isits Requested Visits Authorized [id number] Pending Review 1 1 Specialty Diagnoses / Procedures Referred By Contac t Referred To Contact Radiology Diagnoses Malignant neoplasm of exocervix (HCC) Procedures CT chest wo IV contrast Kisha Pepe, 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 [facility] [address] [facility] [place] [address] Referral ID Status Reason Start Date Expiration Date V isits Requested Visits Authorized [id number] Pending Review 10/20/2022 04/18/2023 1 1 Specialty Diagnoses / Procedures Referred By Contac t Referred To Contact Diagnoses Family history of breast cancer Malignant neoplasm of exocervix (HCC) Procedures CONSULT TO MEDICAL GENETICS - CANCER MEDICAL GENETICS COUNSELING EACH 30 MINUTES Herminia Case MD [address] [place] [address] [facility] [address] [place] [address] Referral ID Status Reason Start Date Expiration Date Visits Requested Visits Authorized [id number] Pending Review PCP Requested Referral Auto-Generate d Referral 3 01/14/2024 1 1 Hospital Course Note Gynecology Oncology Discharg e Summary Patient Name: Gonzalo Deluca Patient : 1955 Primary Care Physician: HERMINIA CASE MD Admit Date: 11/06/2019 Attending Provider: Ziayd Menendez MD Principal Diagnosis: Post-op care Other [...] lymph node dis (more content not included)... Chief Complaint and Reason for Visit Chief Complaint Admit Date LABWORK September 14, 2024 5:00 am LABWORK September 17, 2024 5:00 am [facility] LAB WORK September 17, 2024 9: 00am [facility] LAB WORK October 01, 2024 5: 00am LABWORK December 12, 2024 5:00am Additional Source Comments Reason for Visit (unrecogniz [...] venous access Ziyad Menendez MD [address] [facility] [place] [address] [facility] [address] [place] [address] Reason Comments Fall Elbow Pain Tailbone Pain Reason Onset Date Comments Refill Request 07/01/2021 Reason Onset Date Comments Refill Request 07/28/2021 Reason Comments Orders [facility] Reason Comments Follow Up Reason Comments Patient Question Reason Onset Date Comments Refill Request 08/26/2021 Specialty Diagnoses / Procedures Referred By Lisa french Referred To Contact Radiology Diagnoses Malignant neoplasm of exocervix (HCC) Abnormal chest CT Procedures CT Chest W Contrast Ziyad Menendez MD [address] [facility] [place] [address] Referral ID Status Reason Start Date Expiration Date Visits Re quested Visits Authorized [id number] Closed 09/17/2021 09/17/2022 1 1 Reason Comments [...] Pain Specialty Diagnoses / Procedures Referred By Lisa french Referred To Contact Diagnoses Closed displaced intertrochanteric fracture of left femur, initial encounter ([facility]) Procedures . Dave Whipple DO [address] [place] [address] [facility] Telemetry [address] [place] [phone] Referral ID Status Reason Start Date Expiration Date Visits Re quested Visits Authorized [id number] 1 1 Reason Onset Date Comments Refill [...] encounter Lumbar compression fracture, closed, initial encounter ([facility]) Procedures . Lauren Serna MD [address] [facility] [address] [place] [address] [facility] [address] [address] Referral ID Status Reason Start Date Expiration Date Visits Re quested Visits Authorized [id number] 1 1 Reason Onset Date Comments Refill [...] Reason Comments Electronic Communication FAX from [facility] is going to be [...] Compression fracture of L1 vertebra, initial encounter ([facility]) Procedures r55 Nickolas Marrero MD [address] [place] [address] [facility] [address] [place] [address] Referral ID Status Reason Start Date Expiration Date Visits Re quested Visits Authorized [id number] 1 1 Reason Onset Date Comments Opened In Error 10/06/2023 Reason Comments Home Care Physical therapy del ayed 1 week Reason Onset Date Comments Home Care Management 10/06/2023 Home care [facility] .For cert dates 09/26/2023 - 11/24/2023 that [...] By Lisa t Referred To Contact Diagnoses Fall, initial encounter Procedures [id number] ...[facility] Dual Complete active per [employer] eff 03/21/22 ...auth required ...pending auth ref# [id number] ...UM to fax clinical to [phone] Dianne Dale [address] [place] [address] [facility] Emergency Dept [address] [place] [address] Referral ID Status Reason Start Date Expiration Date Visits Re quested Visits Authorized [id number] 1 1 Reason Onset Date Comments Refill [...] initial encounter Procedures . Lauren Serna MD [address] [place] [address] Phone: tel: fax: [facility] Cardiac Progressive Care Unit PCU [address] [place] [address] Phone: tel: Referral ID Status Reason Start Date Expiration Date Visits Re quested Visits Authorized [id number] 1 1 Reason Comments Hospital Follow-up COPD,PSA/MSSA/STREP LRTIESTABLISH PULM OUTPATIENT... Reason Onset Date Comments Refill Request 08/18/2024 Reason Onset Date Comments Refill Request 08/22/2024 Reason Comments OP Infusion Reason Comments Shortness of Breath Pt reports severe SO B from SNF with need for more than baseline oxygen. Specialty Diagnoses / Procedures Referred By Contac t Referred To Contact Diagnoses COPD exacerbation (HCC) Procedures . Clemente Lynn MD [address] [place] [address] Phone: tel: fax: [facility] ED [address] [place] [address] Phone: tel: fax: Referral ID Status Reason Start Date Expiration Date Visits Re quested Visits Authorized [id number] 1 1 INFORMATION SOURCE (unrecogn ized section and content) DATE CREATED AUTHOR 10/12/2019 [facility] DATE CREATED AUTHOR AUTHOR'S ORGANIZ ATION 11/14/2019 [facility] DATE CREATED AUTHOR AUTHOR'S ORGANIZ ATION 06/13/2020 [facility] [employer] [facility] DATE CREATED AUTHOR AUTHOR'S ORGANIZ ATION 09/13/2020 [facility] DATE CREATED AUTHOR AUTHOR'S ORGANIZ ATION 12/19/2021 [facility] [employer] [facility] DATE CREATED AUTHOR AUTHOR'S ORGANIZ ATION 07/31/2024 [facility] DATE CREATED AUTHOR AUTHOR'S ORGANIZ ATION 01/18/2025 [facility] DATE CREATED AUTHOR AUTHOR'S ORGANIZ ATION 01/25/2025 [facility] [employer] [facility] Ordered Prescriptions (unrec ognized section and content) [...] Prophylaxis 1615 (New Bag - Provider: Erna Sheldon, CHARLEY)1645 (Stopped - Provider: Erna Sheldon, CHARLEY) 0052 (New Bag - Provider: Tona Barroso [...] Barroso RN) 2105 (Given - Provider: Tona Barroso, CHARLEY) montelukast (Singulair) tablet 10 mg 10 [...] 1 dose 1305 (Given - Provider: Gwen Solorzano, CHARLEY) oxyCODONE (Roxicodone) immediate release tablet 5 mg (COMPLETED) 5 mg, Oral, Once, On Tue11/06/22 at 1520, For 1 dose 1536 (Given - Provider: Gwen Solorzano, CHARLEY) QUEtiapine (SEROquel) tablet 200 mg 200 mg, Oral, Nightly, First dose on Tue11/06/22 at 2115 2214 (Given - Provider: Tona Barroso RN) 2105 (Given - Provider: Tona Barroso RN) sertraline (Zoloft) tablet 200 mg 200 mg, Oral, Nightly, First dose (after last modification) on 11/06/22 at 2100 2100 (Given - Provider: Tona Barroso RN) 2105 (Given - Provider: Tona Barroso, CHARLEY) sodium chloride 0.9% (NS) flush 5-40 [...] at 1700 1700 (Not Given - Provider: Francesca Snyder RCP - Reason: Medication not available) 0945 (Given - Provider: Venu Trimble RCP) 0836 (Given - Provider: Francesca Vuong RCP) PRN Medication Order 11/06/2022 11/07/2022 [...] II/On Unit 1013 (Given - Provider: Erna Sheldon, CHARLEY)1444 (Given - Provider: Erna Sheldon RN)1850 (Given [...] Sheldon RN)1850 (See Alternative - Provider: Erna Sheldon, CHARLEY) 0048 (See Alternative - Provider: Tona Barroso, CHARLEY)0855 (See Alternative - Provider: Austyn Bee, CHARLEY)1323 (See Alternative - Provider: Austyn Bee RN) oxyCODONE-acetaminophen (Percocet) 5-325 MG per tablet 1 tablet (CANCELED) 1 tablet, Oral, Every 6 hours PRN, moderate pain (4-6), severe pain (7-10), Starting on 11/06/22 at 1526, Maximum dose of acetaminophen is 4000 mg from all sources in 24 hours. 204 (Given - Provider: Kelsi Madden RN) 0619 [...] 1120 (Given - Provider: ARMIN DE OLIVEIRA) 09 (Given - Provider: Rimma Mills RN) clonazePAM [...] Daily, First dose on Tue02/16/23 at 1745 4266 (Given - Provider: Vicente Enciso RN) 1119 (Given - Provider: ARMIN DE OLIVEIRA) 0924 (Given - Provider: Rimma Mills, CHARLEY) ipratropium-albuterol (Duo-Neb) 0.5-2.5 mg/3 mL nebulizer [...] time)210 (Not Given - Provider: Emanuel Le RCP [...] 210 (Given - Provider: Vicente Enciso RN) 210 (Given - Provider: Cheryl Valdivia RN) 2099 [...] mL/hr, Administer over 1 Hours, Once, On Tue02/17/23 at 0815, For 1 dose 0845 (New [...] - Provider: Cheryl Valdivia RN) HYDROcodone-acetaminophe n ([place]pm[place]) 5-325 MG per tablet 1 tablet (CANCELED)(Linked [...] pupils, RR < 8; notify primary team stonecutter hand if used ondansetron (Zofran) injection 4 mg(Linked [...] sources in 24 hours. Group 2: HYDROcodone-acetaminophen ([place]) 5-325 MG per tablet 1 tablet (CANCELED)Jump to med 1 tablet, Oral, Every 4 hours PRN, moderate pain (4-6), Starting on Tue02/17/23 at 0706, Maximum dose of acetaminophen is 4000 mg from all sources in 24 hours. Or HYDROcodone-acetaminophen ([place]) 5-325 MG per tablet 2 tablet (CANCELED) [...] sodium chloride 0.9 % 250 mL IVPB (ADD-Nightmute) (COMPLETED) 500 mg, IntraVENous, Administer over 60 Minutes, Once, On 08/07/23 at 1520, For 1 dose, ADD-[place] bag, Suspected Indication (Select all that apply): [...] Maeve Ryan RN) 0801 (Given - Provider: Francesca Dee RN)1400 (Canceled Entry - Provider: Automatic Discharge Provider - Comment: Automatically canceled at discontinue of medication order) buPROPion XL (Wellbutrin XL) 24 hr tablet 150 mg 150 mg, Oral, Daily, First dose on Tue09/20/23 at 0800, Do not crush, chew, or split. 1043 (Given - Provider: Deanna Vaughan RN) 0822 (Given - Provider: Jennifer Montes RN) 0802 (Given - Provider: Francesca Dee RN) busPIRone (Buspar) tablet 15 mg (CANCELED) 15 mg, Oral, 3 times daily, First dose on Tue09/20/23 at 2100 212 (Given - Provider: Maeve Ryan RN) 0822 (Given - Provider: Jennifer Montes RN)1340 (Self Administered Via Pump - Provider: Jennifer Montes RN) busPIRone (Buspar) tablet 15 mg 15 mg, Oral, 2 times daily, First dose (after last modification) on Tue09/21/23 at 2100 212 (Given - Provider: Maeve Ryan RN) 0759 (Given - Provider: Francesca Dee, CHARLEY) calcitonin (Miacalcin) injection 50 Units 50 Units, IntraMUSCular, Daily, First dose on Tue09/20/23 at 0900 1400 (Not Given - Provider: Deanna Vaughan RN - Reason: Medication not available) 1217 (Given - Provider: Jennifer Montes RN) 1223 (Given - Provider: Francesca Dee, RN) cholecalciferol (Vitamin D-3) tablet 1,000 Units 1,000 Units, Oral, Daily, First dose on Tue09/22/23 at 0900 0833 (Given - Provider: Francesca Dee, CHARLEY) clonazePAM (KlonoPIN) tablet 0.5 mg [...] RN) 0822 (Given - Provider: Jennifer Montes, CHARLEY) 0803 (Given - Provider: Francesca Dee, CHARLEY) gabapentin (Neurontin) capsule 600 mg [...] available)2124 (Given - Provider: Maeve Ryan RN) 831 (Given - Provider: Jennifer Montes, CHARLEY)2130 (Given - Provider: Maeve Ryan RN) 804 (Given - Provider: Francesca Dee, CHARLEY) montelukast (Singulair) tablet 10 mg 10 mg, Oral, Nightly, First dose on Tue09/20/23 at 0000 0013 (Given - Provider: Suzette Davis, RN)2121 (Given - Provider: Maeve Ryan, RN) 2126 (Given - Provider: Maeve Ryan, CHARLEY) nicotine (Nicoderm, Step 2) 14 MG/24HR patch [...] Patient/family refused) 0802 (Medication Applied - Provider: Francesca Dee RN)1436 (Due: Medication Removed - Provider: Automatic Discharge Provider - Comment: Time automatically adjusted from order being discontinued) PARoxetine (Paxil) tablet 30 mg 30 mg, Oral, Daily, First dose (after last modification) on Tue09/21/23 at 0900 0822 (Given - Provider: Jennifer Montes RN) 0802 (Given - Provider: Francesca Dee RN) potassium chloride CR (Klor-Con M10) [...] at 0000 0014 (Given - Provider: Suzette Davis, CHARLEY)212 (Given - Provider: Maeve Ryan, CHARLEY) senna-docusate sodium (Senokot-S) 8.6-50 MG tablet 1 tablet 1 tablet, Oral, Nightly, First dose on Tue09/21/23 at 2100 212 (Given - Provider: Maeve Ryan, CHARLEY) tiotropium [...] RN) 0825 (Given - Provider: Jennifer Montes, CHARLEY) 0805 (Given - Provider: Francesca Dee RN) PRN Medication Order 09/20/2023 09/21/2023 [...] sedation for opioid reversal - MUST notify stonecutter hand provider immediately after first dose, may give [...] 0749 1043 (Given - Provider: Deanna Vaughan, CHARLEY)1729 (Given - Provider: Deanna Vaughan RN) 0434 (Given - Provider: Maeve Ryan, CHARLEY)1014 (Given - Provider: Jennifer Montes, CHARLEY)1748 (Given - Provider: Jennifer Montes RN) perflutren protein A microsphere (Optison) 3 [...] Swift RN) 0748 (Given - Provider: Patsy yWnn RN) sodium chloride 0.9% (NS) flush 5-40 [...] RN)1730 (Not Given - Provider: Nicole Swift, CHARLEY - Reason: Loss of IV access) 0530 [...] in 24 hours. 0101 (Given - Provider: Jennifre Hartley RN) albuterol 108 (90 Base) MCG/ACT inhaler 2 puff 2 puff, Inhalation, Every 4 hours PRN, wheezing, shortness of breath, Starting on Tue05/21/22 at 0525 ibuprofen tablet 400 mg (COMPLETED) 400 mg, Oral, Once PRN, mild pain (1-3), Starting on Tue05/23/22 at 0628, For 1 dose 0643 (Given - Provider: oRcio Chaves LPN) melatonin tablet 6 mg 6 [...] Rocio Chaves LPN)1255 (Given - Provider: Nicole Swift, RN)1959 (Given - Provider: Jennifer Hartley, RN) 0211 (Given - Provider: Jennifer Hartley, RN)0748 (Given - Provider: Patsy Wynn, RN)1429 (Given - Provider: Patsy Wynn, RN) polyethylene glycol (PEG) 3350 (Miralax) packet 17 g 17 g, Oral, Daily PRN, constipation, Starting on Tue05/21/22 at 0525, 1st line for treatment of constipation - give scheduled if no bowel movement in past 24 hours. 0946 (Given - Provider: Nicole Swift, CHARLEY) sodium chloride 0.9 % infusion 5-250 mL/hr, [...] mL/hr, Administer over 1 Hours, Once, On 04/27/24 at 2350, For 1 dose 2358 (New Bag - Provider: Desiree Rangel RN) 0120 (Stopped - Provider: Erna Cooper RN) Scheduled Medication Order 08/06/2024 08/07/2024 08/08/2024 acetaminophen (Tylenol) tablet 650 mg 650 mg, Oral, 2 times daily, First dose on Tue07/31/24 at 1030, Maximum dose of acetaminophen is 4000 mg from all sources in 24 hours. 0841 (Given - Provider: Neelam Badillo RN)2024 (Given - Provider: Waldemar Holbrook, RN) 09 (Given - Provider: Lizett Rizvi, CHARLEY)2038 (Given - Provider: Sadie Rodriguez RN) 101 (Given - Provider: Gabriela Rosa, CHARLEY) albuterol (2.5 MG/3ML) 0.083% nebulizer solution 2.5 mg 2.5 mg, Nebulization, 2 times daily, First dose on Tue08/04/24 at 0800, Initiate RT Bronchodilator Protocol? Yes 0911 (Given - Provider: DICK CrumpP)2028 (Given - Provider: Pallavi Chairez RCP) 0838 (Given - Provider: DICK GuyP)2026 (Given - Provider: Luz Pruett, [employer]GER) 0859 (Given - Provider: Kimber Alvarado RCP) aspirin EC tablet 81 mg 81 mg, Oral, Daily, First dose on Tue07/31/24 at 0900, Do not crush, chew, or split. 0841 (Given - Provider: Neelam Badillo RN) 09 (Given - Provider: Lizett Rizvi RN) 08 (Given - Provider: Gabriela Rosa, CHARLEY) buPROPion XL (Wellbutrin XL) 24 hr tablet 150 mg 150 mg, Oral, Daily, First dose on Tue07/31/24 at 0800, Do not crush, chew, or split. 0841 (Given - Provider: Neelam Badillo RN) 09 (Given - Provider: Lizett Rizvi RN) 08 (Given - Provider: Gabriela Rosa RN) busPIRone (Buspar) tablet 15 mg 15 mg, Oral, 2 times daily, First dose on Tue07/30/24 at 2310 0842 (Given - Provider: Neelam Badillo RN)2025 (Given - Provider: Waldemar Holbrook RN) 0900 (Given - Provider: Lizett Rizvi RN)2239 (Given - Provider: Sadie Rodriguez, CHARLEY) 0829 (Given - Provider: Gabriela Rosa, RN) calcitonin (Miacalcin) injection 50 Units 50 Units, IntraMUSCular, Daily, First dose on Tue07/31/24 at 0900 0839 (Given - Provider: Neelam Badillo RN) 0910 (Given - Provider: Lizett Rizvi RN) 1046 (Given - Provider: Gabriela Rosa, RN) cefepime (Maxipime) 2,000 mg in sodium [...] Holbrook RN)0856 (New Bag - Provider: Lizett Rizvi, CHARLEY)1312 (Stopped - Provider: Lizett Rizvi, RN)1612 (New Bag - Provider: Lizett Rizvi [...] 0828 (Given - Provider: Gabriela Rosa, RN) enoxaparin (Lovenox) syringe 30 mg 30 [...] RN)2022 (Given - Provider: Waldemar Holbrook RN) 09 (Given - Provider: Lizett Rizvi RN)2037 (Given [...] Provider: Gabriela Rosa, CHARLEY) predniSONE (Deltasone) tablet 20 mg (COMPLETED)(Linked Group [...] Badillo RN) 0903 (Given - Provider: Lizett Rizvi, RN) 0834 (Given - Provider: Gabriela Rosa [...] Linda Brasher RN)0856 (Given - Provider: Neelam Badillo RN)1412 (Given - Provider: Neelam Badillo, CHARLEY)1851 (Given - Provider: Neelam Badillo RN) 0046 (Given - Provider: Waldemar Holbrook RN)0515 (Given - Provider: Waldemar Holbrook RN)0914 (Given - Provider: Lizett Rizvi, CHARLEY)1325 (Given - Provider: Lizett Rizvi RN)1743 (Given - Provider: Lizett Rizvi RN)2239 (Given - Provider: Sadie Rodriguez, CHARLEY) 0829 (Given - Provider: Gabriela Rosa, CHARLEY)1342 (Given - Provider: Gabriela Rosa, RN) naloxone (Narcan) injection 0.4 mg 0.4 mg, IntraVENous, Every 5 min PRN, opioid reversal, respiratory depression, Starting on Tue07/30/24 at 2308, +++ For RR <10, pinpoint pupils, over sedation for opioid reversal - MUST notify stonecutter hand provider immediately after first dose, may give [...] at 1007 2031 (Given - Provider: Waldemar Holbrook RN) 2300 (Given - Provider: Sadie Rodriguez RN) sodium chloride ([place]) 0.65 % nasal spray 2 spray 2 [...] than 100.4 F (38 C), Starting on 07/30/24 at 2312, Maximum dose of acetaminophen is 4000 mg from all sources in 24 hours. Or acetaminophen (Tylenol) suppository 650 mgJump to med 650 mg, Rectal, Every 6 hours PRN, fever, For temp greater than 100.4 F (38 C), Starting on 07/30/24 at 2312, Administer if oral route cannot [...] no further options ordered. Scheduled Medication Order 01/20/2025 01/21/2025 01/22/2025 aspirin EC tablet 81 mg 81 mg, Oral, Daily, First dose on 01/12/25 at 1400, Do not crush, chew, or split. 0808 (Given - Provider: Freddy Hoover RN) 0829 (Given - Provider: Leyla Salazar RN) 0809 (Given - Provider: Maria Alejandra Trevizo, RN) buPROPion XL (Wellbutrin XL) 24 hr tablet 150 mg 150 mg, Oral, Daily, First dose on 01/12/25 at 1400, Do not crush, chew, or split. 0808 (Given - Provider: Freddy Hoover RN) 0829 (Given - Provider: Leyla Salazar RN) 08 (Given - Provider: Maria Alejandra Trevizo, CHARLEY) busPIRone (Buspar) tablet 15 mg 15 mg, Oral, 2 times daily, First dose on 01/12/25 at 1400 0808 (Given - Provider: Freddy Hoover RN)194 (Given - Provider: Leola Tobar, CHARLEY) 0829 (Given - Provider: Leyla Salazar RN)2033 (Given - Provider: Evangelina Sorto RN) 0809 (Given - Provider: Maria Alejandra Trevizo, CHARLEY)2021 (Given - Provider: Jessica Gallardo RN) cefepime (Maxipime) 2,000 mg in sodium chloride 0.9 % 50 mL IVPB Mini-Bag Plus (COMPLETED) 2,000 mg, IntraVENous, at 12.5 mL/hr, Administer over 4 Hours, Every 8 hours, First dose on 01/12/25 at 1330, For 28 doses, Mini-Bag Plus bag, Suspected Indication (Select all that apply): Pneumonia (CAP) 0054 (New Bag - Provider: Jessica Gallardo RN)0515 (Stopped - Provider: Jessica Gallardo RN)0810 (New Bag - Provider: Freddy Hoover, CHARLEY)1258 (Stopped - Provider: Freddy Hoover RN)1724 (New Bag - Provider: Freddy Hoover RN)2137 (Stopped - Provider: Leola Tobar, CHARLEY) 0137 (New Bag - Provider: Leola Tobar, CHARLEY)0542 (Stopped - Provider: Leola Tobar, CHARLEY)0829 (New Bag - Provider: Leyla Salazar RN)1222 (Stopped - Provider: Leyla Salazar RN)1721 (New Bag - Provider: Leyla Salazar RN)212 (Stopped - Provider: Evangelina Sorto RN) cholecalciferol (Vitamin D-3) tablet 2,000 Units 2,000 Units, Oral, Daily, First dose on 01/19/25 at 0900 0808 (Given - Provider: Freddy Hoover RN) 0835 (Given - Provider: Leyla Salazar RN) 0811 (Given - Provider: Maria Alejandra Trevizo, CHARLEY) Diclofenac Sodium (Voltaren) 1 % gel 2 g 2 g, Topical, 2 times daily, First dose on Tue01/18/25 at 1230, Apply to: neck pain 0144 (Given - Provider: Jessica Gallardo, CHARLEY)0809 (Given - Provider: Freddy Hoover RN)211 (Not Given - Provider: Leola Tobar RN - Reason: Patient/family refused) 0841 (Not Given - Provider: Leyla Salazar RN - Reason: Patient/family refused)2016 (Not Given - Provider: Evangelina Sorto RN - Reason: Patient/family refused) 132 (Not Given - Provider: Maria Alejandra Trevizo RN - Reason: Patient/family refused)2024 (Not Given - Provider: Jessica Gallardo RN - Reason: Patient/family refused) enoxaparin (Lovenox) syringe 40 mg 40 mg, SubCUTAneous, Every 24 hours scheduled (Daily), First dose on Tue01/12/25 at 1400, Indication of Use: Prophylaxis-DVT/PE, Indications: Prophylaxis of Venous Thromboembolism 0808 (Given - Provider: Freddy Hoover RN) 0829 (Given - Provider: Leyla Salazar RN) 0809 (Given - Provider: Maria Alejandra Trevizo RN) fluticasone (Flonase) nasal spray 2 spray 2 spray, Each Nostril, Daily, First dose on Tue01/15/25 at 1100, Shake gently. Before first use, prime pump (press 6 times until fine spray appears). After use, clean tip and replace cap. 0809 (Given - Provider: Freddy Hoover RN) 0842 (Not Given - Provider: Leyla Salazar RN - Reason: Patient/family refused) 0811 (Given - Provider: Maria Alejandra Trevizo, RN) folic acid (Folvite) tablet 1 mg 1 mg, Oral, Daily, First dose on Tue01/12/25 at 1400 0808 (Given - Provider: Freddy Hoover, RN) 08 (Given - Provider: Leyla Salazar, RN) 808 (Given - Provider: Maria Alejandra Trevizo, RN) guaiFENesin (Mucinex) 12 hr tablet 600 mg 600 mg, Oral, 2 times daily, First dose on Tue01/14/25 at 0900, Administer with plenty of fluids to ensure proper action. Do not crush, chew, or split. 08 (Given - Provider: Freddy Hoover, RN)1940 (Given - Provider: Leola Tobar RN) 08 (Given - Provider: Leyla Salazar, RN)2033 (Given - Provider: Evangelina Sorto, CHARLEY) 08 (Given - Provider: Maria Alejandra Trevizo RN)2021 (Given - Provider: Jessica Gallardo, CHARLEY) influenza vaccine A&B surf ant adjuvanted (Fluad) HIGH-DOSE injection 0.5 mL 0.5 mL, IntraMUSCular, Prior to discharge, Starting on 01/12/25 at 1317, For 1 dose ipratropium-albuterol (Duo-Neb) 0.5-2.5 mg/3 mL nebulizer solution 3 mL 3 mL, Nebulization, 3 times daily, First dose (after last modification) on Tue01/15/25 at 2000 0909 (Given - Provider: Yesenia Salas RCP)1342 (Given - Provider: Yesenia Salas RCP)194 (Given - Provider: Antolin Jose, SHARONA) 0954 (Given - Provider: Kaykay Ambriz RCP)1456 (Given - Provider: Kaykay Ambriz RCP)1951 (Given - Provider: Tanya Sanderson) 0923 (Given - Provider: Meri Ramon)1409 (Given - Provider: Kaykay Ambriz RCP)2031 (Given - Provider: Kaylene Cooper RCP) melatonin tablet 3 mg 3 mg, Oral, Nightly, First dose on 01/12/25 at 2100 194 (Given - Provider: Leola Tobar RN) 2033 (Given - Provider: Evangelina Sorto, CHARLEY) 2024 (Not Given - Provider: Jessica Gallardo, CHARLEY - Reason: Patient/family refused - Comment: Pt waiting til she gets back to facility) mirtazapine (Remeron) tablet 15 mg 15 mg, Oral, Nightly, First dose on 01/12/25 at 2099 1940 (Given - Provider: Leola Tobar RN) 2033 (Given - Provider: Evangelina Sorto RN) 2021 (Given - Provider: Jessica Gallardo, CHARLEY) mometasone-formoterol (Dulera 100) 100-5 MCG/ACT inhaler 2 puff 2 puff, Inhalation, 2 times daily, First dose on Tue01/15/25 at 0900, Administer using an inhaler spacer. Rinse mouth with water after use to reduce aftertaste and incidence of candidiasis. Do not swallow. 0809 (Given - Provider: Freddy Hoover RN)1943 (Given - Provider: Leola Tobar RN) 0834 (Given - Provider: Leyla Salazar, CHARLEY)2029 (Given - Provider: Evangelina Sorto, CHARLEY) 0811 (Given - Provider: Maria Alejandra Trevizo, CHARLEY)2023 (Given - Provider: Jessica Gallardo, CHARLEY) montelukast (Singulair) tablet 10 mg 10 mg, Oral, Nightly, First dose on 01/12/25 at 2099 1940 (Given - Provider: Leola Tobar RN) 2033 (Given - Provider: Evangelina Sorto, CHARLEY) 2021 (Given - Provider: Jessica Gallarod, CHARLEY) pantoprazole (ProtoNix) EC tablet 40 mg 40 mg, Oral, Every morning, First dose on 01/12/25 at 1400, Do not crush, chew, or split. 0808 (Given - Provider: Freddy Hoover RN) 0828 (Given - Provider: Leyla Salazar, CHARLEY) 0807 (Given - Provider: Maria Alejandra Trevzio, CHARLEY) predniSONE (Deltasone) tablet 10 mg(Linked Group 1) 10 mg, Oral, Daily, First dose on Tue01/24/25 at 0900, For 3 doses predniSONE (Deltasone) tablet 20 mg(Linked Group 1) 20 mg, Oral, Daily, First dose on Tue01/21/25 at 0900, For 3 doses 0828 (Given - Provider: Leyla Salazar RN) 0807 (Given - Provider: Maria Alejandra Trevizo, CHARLEY) predniSONE (Deltasone) tablet 30 mg (COMPLETED)(Linked Group 1) 30 mg, Oral, Daily, First dose on Tue01/18/25 at 0900, For 3 doses 0808 (Given - Provider: Freddy Hoover RN) senna-docusate sodium (Senokot-S) 8.6-50 MG tablet 1 tablet 1 tablet, Oral, 2 times daily, First dose on Tue01/15/25 at 1330 0808 (Not Given - Provider: Freddy Hoover RN - Reason: Patient/family refused)1940 (Given - Provider: Leola Tobar RN) 0828 (Not Given - Provider: Leyla Salazar RN - Reason: Patient/family refused)2033 (Given - Provider: Evangelina Sorto RN) 08 (Given - Provider: Maria Alejandra Trevizo RN)2024 (Not Given - Provider: Jessica Gallardo RN - Reason: Patient/family refused) sodium chloride 3 % hypertonic nebulizer solution 4 mL 4 mL, Nebulization, 2 times daily, First dose on Tue01/14/25 at 0900 0917 (Given - Provider: Yesenia Salas RCP)194 (Given - Provider: Antolin Jose, SHARONA) 100 (Given - Provider: Kaykay Ambriz RCP)1952 (Given - Provider: Tanya Sanderson) 09 (Given - Provider: Meri Ramon)2039 (Given - Provider: Kaylene Cooper RCP) PRN Medication Order 01/20/2025 01/21/2025 01/22/2025 acetaminophen (Tylenol) tablet 650 mg 650 mg, Oral, Every 6 hours PRN, mild pain (1-3), Starting on 01/13/25 at 1350, Maximum dose of acetaminophen is 4000 mg from all sources in 24 hours. 0142 (Given - Provider: Jessica Gallardo RN) 1556 (Given - Provider: Maria Alejandra Trevizo RN) albuterol (2.5 MG/3ML) 0.083% nebulizer solution 2.5 mg 2.5 mg, Nebulization, Every 2 hour PRN, wheezing, Starting on 01/12/25 at 1314, Initiate RT Bronchodilator Protocol: hydrOXYzine pamoate (Vistaril) capsule 25 mg 25 mg, Oral, Every 12 hours PRN, anxiety, Starting on 01/20/25 at 1729 1818 (Given - Provider: Freddy Hoover, CHARLEY) 1059 (Given - Provider: Leyla Salazar, CHARLEY)2238 (Given - Provider: Evangelina Sorto, CHARLEY) 1213 (Given - Provider: Maria Alejandra Trevizo, CHARLEY) methocarbamol (Robaxin) tablet 500 mg 500 mg, Oral, Every 8 hours PRN, muscle spasms, Starting on 01/14/25 at 1632 1437 (Given - Provider: Leyla Salazar RN)2238 (Given - Provider: Evangelina Sorto, CHARLEY) 1213 (Given - Provider: Maria Alejandra Trevizo RN)2021 (Given - Provider: Jessica Gallardo, CHARLEY) naloxone (Narcan) injection 0.4 mg 0.4 mg, IntraVENous, Every 5 min PRN, opioid reversal, respiratory depression, over sedation, RR <10, pinpoint pupils, Starting on 01/12/25 at 1314, +++notify stonecutter hand provider if used+++ ondansetron (Zofran) injection 4 mg(Linked Group 2) 4 mg, IntraVENous, Every 6 hours PRN, nausea, vomiting, Starting on 01/12/25 at 1314, 1st Line. Give IV if patient is unable to take orally. If inadequate response within 60 minutes, proceed to next-line agent or contact provider if no further options ordered. 0834 (See Alternative - Provider: Leyla Salazar RN) ondansetron ODT (Zofran-ODT) disintegrating tablet 4 mg(Linked Group 2) 4 mg, Oral, Every 8 hours PRN, nausea, vomiting, Starting on 01/12/25 at 1314, 1st Line. If inadequate response within 60 minutes, proceed to next-line agent or contact provider if no further options ordered. Patient should allow tablet to dissolve on tongue. Do not remove from blister pack until just before administering. 0834 (Given - Provider: Leyla Salazar, RN) oxyCODONE (Roxicodone) immediate release tablet 15 mg 15 mg, Oral, Every 6 hours PRN, moderate pain (4-6), severe pain (7-10), or SOB, Starting on Tue01/15/25 at 1055 0650 (Given - Provider: Jessica Gallardo, RN)1324 (Given - Provider: Freddy Hoover RN)1941 (Given - Provider: Leola Tobar, RN) 0137 (Given - Provider: Leola Tobar, RN)0828 (Given - Provider: Leyla Salazar, RN)1437 (Given - Provider: Leyla Salazar, RN)203 (Given - Provider: Evangelina Sorto, RN) 0808 (Given - Provider: Maria Alejandra Trevizo, RN)141 (Given - Provider: Maria Alejandra Trevizo, RN)2019 (Given - Provider: Jessica Gallardo, CHARLEY) QUEtiapine (SEROquel) tablet 50 mg 50 mg, Oral, Nightly PRN, Anxiety and Sleep, Starting on 01/12/25 at 1314 2138 (Given - Provider: Leola Tobar, CHARLEY) 2033 (Given - Provider: Evangelina Sorto, CHARLEY) Linked Groups Order Group 1: predniSONE (Deltasone) tablet 40 mg (COMPLETED) 40 mg, Oral, Daily, First dose on Tue01/15/25 at 0900, For 3 doses Followed by predniSONE (Deltasone) tablet 30 mg (COMPLETED)Jump to med 30 mg, Oral, Daily, First dose on Tue01/18/25 at 0900, For 3 doses Followed by predniSONE (Deltasone) tablet 20 mgJump to med 20 mg, Oral, Daily, First dose on 01/21/25 at 0900, For 3 doses Followed by predniSONE (Deltasone) tablet 10 mgJump to med 10 mg, Oral, Daily, First dose on Olga 01/24/25 at 0900, For 3 doses Group 2: ondansetron ODT (Zofran-ODT) disintegrating tablet 4 mgJump to med 4 mg, Oral, Every 8 hours PRN, nausea, vomiting, Starting on 01/12/25 at 1314, 1st Line. If inadequate response within 60 minutes, proceed to next-line agent or contact provider if no further options ordered. Patient should allow tablet to dissolve on tongue. Do not remove from blister pack until just before administering. Or ondansetron (Zofran) injection 4 mgJump to med 4 mg, IntraVENous, Every 6 hours PRN, nausea, vomiting, Starting on 01/12/25 at 1314, 1st Line. Give IV if patient is [...] any alcohol or drug abuse patient.[facility] CenterIn the event this information is protected by the Federal Confidentiality of Alcohol and Drug Abuse Patient Records regulations: The Federal rules restrict any use of the information to criminally investigate or prosecute any alcohol or drug abuse patient.[facility] CenterIn the event this information is protected by the Federal Confidentiality of Alcohol and Drug Abuse Patient Records regulations: The Federal rules restrict any use of the information to criminally investigate or prosecute any alcohol or drug abuse patient.[facility] CenterIn the event this information is protected by the Federal Confidentiality of Alcohol and Drug Abuse Patient Records regulations: The Federal rules restrict any use of the information to criminally investigate or prosecute any alcohol or drug abuse patient.[facility] CenterIn the event this information is protected by the Federal Confidentiality of Alcohol and Drug Abuse Patient Records regulations: The Federal rules restrict any use of the information to criminally investigate or prosecute any alcohol or drug abuse patient.[facility] CenterIn the event this information is protected by the Federal Confidentiality of Alcohol and Drug Abuse Patient Records regulations: The Federal rules restrict any use of the information to criminally investigate or prosecute any alcohol or drug abuse patient.[facility] CenterIn the event this information is protected by the Federal Confidentiality of Alcohol and Drug Abuse Patient Records regulations: The Federal rules restrict any use of the information to criminally investigate or prosecute any alcohol or drug abuse patient.[facility] CenterIn the event this information is protected by the Federal Confidentiality of Alcohol and Drug Abuse Patient Records regulations: The Federal rules restrict any use of the information to criminally investigate or prosecute any alcohol or drug abuse patient.[facility] CenterIn the event this information is protected by the Federal Confidentiality of Alcohol and Drug Abuse Patient Records regulations: The Federal rules restrict any use of the information to criminally investigate or prosecute any alcohol or drug abuse patient.[facility] CenterIn the event this information is protected by the Federal Confidentiality of Alcohol and Drug Abuse Patient Records regulations: The Federal rules restrict any use of the information to criminally investigate or prosecute any alcohol or drug abuse patient.[facility] CenterIn the event this information is protected by the Federal Confidentiality of Alcohol and Drug Abuse Patient Records regulations: The Federal rules restrict any use of the information to criminally investigate or prosecute any alcohol or drug abuse patient.[facility] CenterIn the event this information is protected by the Federal Confidentiality of Alcohol and Drug Abuse Patient Records regulations: The Federal rules restrict any use of the information to criminally investigate or prosecute any alcohol or drug abuse patient.[facility] CenterIn the event this information is protected by the Federal Confidentiality of Alcohol and Drug Abuse Patient Records regulations: The Federal rules restrict any use of the information to criminally investigate or prosecute any alcohol or drug abuse patient.[facility] CenterIn the event this information is protected by the Federal Confidentiality of Alcohol and Drug Abuse Patient Records regulations: The Federal rules restrict any use of the information to criminally investigate or prosecute any alcohol or drug abuse patient.[facility] CenterIn the event this information is protected by the Federal Confidentiality of Alcohol and Drug Abuse Patient Records regulations: The Federal rules restrict any use of the information to criminally investigate or prosecute any alcohol or drug abuse patient.[facility] CenterIn the event this information is protected by the Federal Confidentiality of Alcohol and Drug Abuse Patient Records regulations: The Federal rules restrict any use of the information to criminally investigate or prosecute any alcohol or drug abuse patient.[facility] CenterIn the event this information is protected by the Federal Confidentiality of Alcohol and Drug Abuse Patient Records regulations: The Federal rules restrict any use of the information to criminally investigate or prosecute any alcohol or drug abuse patient.[facility] CenterIn the event this information is protected by the Federal Confidentiality of Alcohol and Drug Abuse Patient Records regulations: The Federal rules restrict any use of the information to criminally investigate or prosecute any alcohol or drug abuse patient.[facility] CenterIn the event this information is protected by the Federal Confidentiality of Alcohol and Drug Abuse Patient Records regulations: The Federal rules restrict any use of the information to criminally investigate or prosecute any alcohol or drug abuse patient.[facility] CenterIn the event this information is protected by the Federal Confidentiality of Alcohol and Drug Abuse Patient Records regulations: The Federal rules restrict any use of the information to criminally investigate or prosecute any alcohol or drug abuse patient.[facility] CenterIn the event this information is protected by the Federal Confidentiality of Alcohol and Drug Abuse Patient Records regulations: The Federal rules restrict any use of the information to criminally investigate or prosecute any alcohol or drug abuse patient.[facility] CenterIn the event this information is protected by the Federal Confidentiality of Alcohol and Drug Abuse Patient Records regulations: The Federal rules restrict any use of the information to criminally investigate or prosecute any alcohol or drug abuse patient.[facility] CenterIn the event this information is protected by the Federal Confidentiality of Alcohol and Drug Abuse Patient Records regulations: The Federal rules restrict any use of the information to criminally investigate or prosecute any alcohol or drug abuse patient.[facility] CenterIn the event this information is protected by the Federal Confidentiality of Alcohol and Drug Abuse Patient Records regulations: The Federal rules restrict any use of the information to criminally investigate or prosecute any alcohol or drug abuse patient.[facility] CenterIn the event this information is protected by the Federal Confidentiality of Alcohol and Drug Abuse Patient Records regulations: The Federal rules restrict any use of the information to criminally investigate or prosecute any alcohol or drug abuse patient.[facility] CenterIn the event this information is protected by the Federal Confidentiality of Alcohol and Drug Abuse Patient Records regulations: The Federal rules restrict any use of the information to criminally investigate or prosecute any alcohol or drug abuse patient.[facility] CenterIn the event this information is protected by the Federal Confidentiality of Alcohol and Drug Abuse Patient Records regulations: The Federal rules restrict any use of the information to criminally investigate or prosecute any alcohol or drug abuse patient.[facility] CenterIn the event this information is protected by the Federal Confidentiality of Alcohol and Drug Abuse Patient Records regulations: The Federal rules restrict any use of the information to criminally investigate or prosecute any alcohol or drug abuse patient.[facility] CenterIn the event this information is protected by the Federal Confidentiality of Alcohol and Drug Abuse Patient Records regulations: The Federal rules restrict any use of the information to criminally investigate or prosecute any alcohol or drug abuse patient.[facility] CenterIn the event this information is protected by the Federal Confidentiality of Alcohol and Drug Abuse Patient Records regulations: The Federal rules restrict any use of the information to criminally investigate or prosecute any alcohol or drug abuse patient.[facility] CenterIn the event this information is protected by the Federal Confidentiality of Alcohol and Drug Abuse Patient Records regulations: The Federal rules restrict any use of the information to criminally investigate or prosecute any alcohol or drug abuse patient.[facility] CenterIn the event this information is protected by the Federal Confidentiality of Alcohol and Drug Abuse Patient Records regulations: The Federal rules restrict any use of the information to criminally investigate or prosecute any alcohol or drug abuse patient.[facility] CenterIn the event this information is protected by the Federal Confidentiality of Alcohol and Drug Abuse Patient Records regulations: The Federal rules restrict any use of the information to criminally investigate or prosecute any alcohol or drug abuse patient.[facility] CenterIn the event this information is protected by the Federal Confidentiality of Alcohol and Drug Abuse Patient Records regulations: The Federal rules restrict any use of the information to criminally investigate or prosecute any alcohol or drug abuse patient.[facility] CenterIn the event this information is protected by the Federal Confidentiality of Alcohol and Drug Abuse Patient Records regulations: The Federal rules restrict any use of the information to criminally investigate or prosecute any alcohol or drug abuse patient.[facility] CenterIn the event this information is protected by the Federal Confidentiality of Alcohol and Drug Abuse Patient Records regulations: The Federal rules restrict any use of the information to criminally investigate or prosecute any alcohol or drug abuse patient.[facility] CenterIn the event this information is protected by the Federal Confidentiality of Alcohol and Drug Abuse Patient Records regulations: The Federal rules restrict any use of the information to criminally investigate or prosecute any alcohol or drug abuse patient.[facility] CenterIn the event this information is protected by the Federal Confidentiality of Alcohol and Drug Abuse Patient Records regulations: The Federal rules restrict any use of the information to criminally investigate or prosecute any alcohol or drug abuse patient.[facility] CenterIn the event this information is protected by the Federal Confidentiality of Alcohol and Drug Abuse Patient Records regulations: The Federal rules restrict any use of the information to criminally investigate or prosecute any alcohol or drug abuse patient.[facility] CenterIn the event this information is protected by the Federal Confidentiality of Alcohol and Drug Abuse Patient Records regulations: The Federal rules restrict any use of the information to criminally investigate or prosecute any alcohol or drug abuse patient.[facility] CenterIn the event this information is protected by the Federal Confidentiality of Alcohol and Drug Abuse Patient Records regulations: The Federal rules restrict any use of the information to criminally investigate or prosecute any alcohol or drug abuse patient.[facility] CenterIn the event this information is protected by the Federal Confidentiality of Alcohol and Drug Abuse Patient Records regulations: The Federal rules restrict any use of the information to criminally investigate or prosecute any alcohol or drug abuse patient.[facility] CenterIn the event this information is protected by the Federal Confidentiality of Alcohol and Drug Abuse Patient Records regulations: The Federal rules restrict any use of the information to criminally investigate or prosecute any alcohol or drug abuse patient.[facility] CenterIn the event this information is protected by the Federal Confidentiality of Alcohol and Drug Abuse Patient Records regulations: The Federal rules restrict any use of the information to criminally investigate or prosecute any alcohol or drug abuse patient.[facility] CenterIn the event this information is protected by the Federal Confidentiality of Alcohol and Drug Abuse Patient Records regulations: The Federal rules restrict any use of the information to criminally investigate or prosecute any alcohol or drug abuse patient.[facility] CenterIn the event this information is protected by the Federal Confidentiality of Alcohol and Drug Abuse Patient Records regulations: The Federal rules restrict any use of the information to criminally investigate or prosecute any alcohol or drug abuse patient.[facility] CenterIn the event this information is protected by the Federal Confidentiality of Alcohol and Drug Abuse Patient Records regulations: The Federal rules restrict any use of the information to criminally investigate or prosecute any alcohol or drug abuse patient.[facility] CenterIn the event this information is protected by the Federal Confidentiality of Alcohol and Drug Abuse Patient Records regulations: The Federal rules restrict any use of the information to criminally investigate or prosecute any alcohol or drug abuse patient.[facility] CenterIn the event this information is protected by the Federal Confidentiality of Alcohol and Drug Abuse Patient Records regulations: The Federal rules restrict any use of the information to criminally investigate or prosecute any alcohol or drug abuse patient.[facility] CenterIn the event this information is protected by the Federal Confidentiality of Alcohol and Drug Abuse Patient Records regulations: The Federal rules restrict any use of the information to criminally investigate or prosecute any alcohol or drug abuse patient.[facility] CenterIn the event this information is protected by the Federal Confidentiality of Alcohol and Drug Abuse Patient Records regulations: The Federal rules restrict any use of the information to criminally investigate or prosecute any alcohol or drug abuse patient.[facility] CenterIn the event this information is protected by the Federal Confidentiality of Alcohol and Drug Abuse Patient Records regulations: The Federal rules restrict any use of the information to criminally investigate or prosecute any alcohol or drug abuse patient.[facility] CenterIn the event this information is protected by the Federal Confidentiality of Alcohol and Drug Abuse Patient Records regulations: The Federal rules restrict any use of the information to criminally investigate or prosecute any alcohol or drug abuse patient.[facility] CenterIn the event this information is protected by the Federal Confidentiality of Alcohol and Drug Abuse Patient Records regulations: The Federal rules restrict any use of the information to criminally investigate or prosecute any alcohol or drug abuse patient.[facility] CenterIn the event this information is protected by the Federal Confidentiality of Alcohol and Drug Abuse Patient Records regulations: The Federal rules restrict any use of the information to criminally investigate or prosecute any alcohol or drug abuse patient.[facility] CenterIn the event this information is protected by the Federal Confidentiality of Alcohol and Drug Abuse Patient Records regulations: The Federal rules restrict any use of the information to criminally investigate or prosecute any alcohol or drug abuse patient.[facility] CenterIn the event this information is protected by the Federal Confidentiality of Alcohol and Drug Abuse Patient Records regulations: The Federal rules restrict any use of the information to criminally investigate or prosecute any alcohol or drug abuse patient.[facility] CenterIn the event this information is protected by the Federal Confidentiality of Alcohol and Drug Abuse Patient Records regulations: The Federal rules restrict any use of the information to criminally investigate or prosecute any alcohol or drug abuse patient.[facility] CenterIn the event this information is protected by the Federal Confidentiality of Alcohol and Drug Abuse Patient Records regulations: The Federal rules restrict any use of the information to criminally investigate or prosecute any alcohol or drug abuse patient.[facility] CenterIn the event this information is protected by the Federal Confidentiality of Alcohol and Drug Abuse Patient Records regulations: The Federal rules restrict any use of the information to criminally investigate or prosecute any alcohol or drug abuse patient.[facility] CenterIn the event this information is protected by the Federal Confidentiality of Alcohol and Drug Abuse Patient Records regulations: The Federal rules restrict any use of the information to criminally investigate or prosecute any alcohol or drug abuse patient.[facility] CenterIn the event this information is protected by the Federal Confidentiality of Alcohol and Drug Abuse Patient Records regulations: The Federal rules restrict any use of the information to criminally investigate or prosecute any alcohol or drug abuse patient.[facility] CenterIn the event this information is protected by the Federal Confidentiality of Alcohol and Drug Abuse Patient Records regulations: The Federal rules restrict any use of the information to criminally investigate or prosecute any alcohol or drug abuse patient.[facility] CenterIn the event this information is protected by the Federal Confidentiality of Alcohol and Drug Abuse Patient Records regulations: The Federal rules restrict any use of the information to criminally investigate or prosecute any alcohol or drug abuse patient.[facility] CenterIn the event this information is protected by the Federal Confidentiality of Alcohol and Drug Abuse Patient Records regulations: The Federal rules restrict any use of the information to criminally investigate or prosecute any alcohol or drug abuse patient.[facility] CenterIn the event this information is protected by the Federal Confidentiality of Alcohol and Drug Abuse Patient Records regulations: The Federal rules restrict any use of the information to criminally investigate or prosecute any alcohol or drug abuse patient.[facility] CenterIn the event this information is protected by the Federal Confidentiality of Alcohol and Drug Abuse Patient Records regulations: The Federal rules restrict any use of the information to criminally investigate or prosecute any alcohol or drug abuse patient.[facility] CenterIn the event this information is protected by the Federal Confidentiality of Alcohol and Drug Abuse Patient Records regulations: The Federal rules restrict any use of the information to criminally investigate or prosecute any alcohol or drug abuse patient.[facility] CenterIn the event this information is protected by the Federal Confidentiality of Alcohol and Drug Abuse Patient Records regulations: The Federal rules restrict any use of the information to criminally investigate or prosecute any alcohol or drug abuse patient.[facility] CenterIn the event this information is protected by the Federal Confidentiality of Alcohol and Drug Abuse Patient Records regulations: The Federal rules restrict any use of the information to criminally investigate or prosecute any alcohol or drug abuse patient.[facility] CenterIn the event this information is protected by the Federal Confidentiality of Alcohol and Drug Abuse Patient Records regulations: The Federal rules restrict any use of the information to criminally investigate or prosecute any alcohol or drug abuse patient.[facility] CenterIn the event this information is protected by the Federal Confidentiality of Alcohol and Drug Abuse Patient Records regulations: The Federal rules restrict any use of the information to criminally investigate or prosecute any alcohol or drug abuse patient.[facility] CenterIn the event this information is protected by the Federal Confidentiality of Alcohol and Drug Abuse Patient Records regulations: The Federal rules restrict any use of the information to criminally investigate or prosecute any alcohol or drug abuse patient.[facility] CenterIn the event this information is protected by the Federal Confidentiality of Alcohol and Drug Abuse Patient Records regulations: The Federal rules restrict any use of the information to criminally investigate or prosecute any alcohol or drug abuse patient.[facility] CenterIn the event this information is protected by the Federal Confidentiality of Alcohol and Drug Abuse Patient Records regulations: The Federal rules restrict any use of the information to criminally investigate or prosecute any alcohol or drug abuse patient.[facility] CenterIn the event this information is protected by the Federal Confidentiality of Alcohol and Drug Abuse Patient Records regulations: The Federal rules restrict any use of the information to criminally investigate or prosecute any alcohol or drug abuse patient.[facility] CenterIn the event this information is protected by the Federal Confidentiality of Alcohol and Drug Abuse Patient Records regulations: The Federal rules restrict any use of the information to criminally investigate or prosecute any alcohol or drug abuse patient.[facility] CenterIn the event this information is protected by the Federal Confidentiality of Alcohol and Drug Abuse Patient Records regulations: The Federal rules restrict any use of the information to criminally investigate or prosecute any alcohol or drug abuse patient.[facility] CenterIn the event this information is protected by the Federal Confidentiality of Alcohol and Drug Abuse Patient Records regulations: The Federal rules restrict any use of the information to criminally investigate or prosecute any alcohol or drug abuse patient.[facility] CenterIn the event this information is protected by the Federal Confidentiality of Alcohol and Drug Abuse Patient Records regulations: The Federal rules restrict any use of the information to criminally investigate or prosecute any alcohol or drug abuse patient.[facility] CenterIn the event this information is protected by the Federal Confidentiality of Alcohol and Drug Abuse Patient Records regulations: The Federal rules restrict any use of the information to criminally investigate or prosecute any alcohol or drug abuse patient.[facility] CenterIn the event this information is protected by the Federal Confidentiality of Alcohol and Drug Abuse Patient Records regulations: The Federal rules restrict any use of the information to criminally investigate or prosecute any alcohol or drug abuse patient.[facility] CenterIn the event this information is protected by the Federal Confidentiality of Alcohol and Drug Abuse Patient Records regulations: The Federal rules restrict any use of the information to criminally investigate or prosecute any alcohol or drug abuse patient.[facility] CenterIn the event this information is protected by the Federal Confidentiality of Alcohol and Drug Abuse Patient Records regulations: The Federal rules restrict any use of the information to criminally investigate or prosecute any alcohol or drug abuse patient.[facility] CenterIn the event this information is protected by the Federal Confidentiality of Alcohol and Drug Abuse Patient Records regulations: The Federal rules restrict any use of the information to criminally investigate or prosecute any alcohol or drug abuse patient.[facility] CenterIn the event this information is protected by the Federal Confidentiality of Alcohol and Drug Abuse Patient Records regulations: The Federal rules restrict any use of the information to criminally investigate or prosecute any alcohol or drug abuse patient.[facility] CenterIn the event this information is protected by the Federal Confidentiality of Alcohol and Drug Abuse Patient Records regulations: The Federal rules restrict any use of the information to criminally investigate or prosecute any alcohol or drug abuse patient.[facility] CenterIn the event this information is protected by the Federal Confidentiality of Alcohol and Drug Abuse Patient Records regulations: The Federal rules restrict any use of the information to criminally investigate or prosecute any alcohol or drug abuse patient.[facility] CenterIn the event this information is protected by the Federal Confidentiality of Alcohol and Drug Abuse Patient Records regulations: The Federal rules restrict any use of the information to criminally investigate or prosecute any alcohol or drug abuse patient.[facility] CenterIn the event this information is protected by the Federal Confidentiality of Alcohol and Drug Abuse Patient Records regulations: The Federal rules restrict any use of the information to criminally investigate or prosecute any alcohol or drug abuse patient.[facility] CenterIn the event this information is protected by the Federal Confidentiality of Alcohol and Drug Abuse Patient Records regulations: The Federal rules restrict any use of the information to criminally investigate or prosecute any alcohol or drug abuse patient.[facility] CenterIn the event this information is protected by the Federal Confidentiality of Alcohol and Drug Abuse Patient Records regulations: The Federal rules restrict any use of the information to criminally investigate or prosecute any alcohol or drug abuse patient.[facility] CenterIn the event this information is protected by the Federal Confidentiality of Alcohol and Drug Abuse Patient Records regulations: The Federal rules restrict any use of the information to criminally investigate or prosecute any alcohol or drug abuse patient.[facility] CenterIn the event this information is protected by the Federal Confidentiality of Alcohol and Drug Abuse Patient Records regulations: The Federal rules restrict any use of the information to criminally investigate or prosecute any alcohol or drug abuse patient.[facility] CenterIn the event this information is protected by the Federal Confidentiality of Alcohol and Drug Abuse Patient Records regulations: The Federal rules restrict any use of the information to criminally investigate or prosecute any alcohol or drug abuse patient.[facility] CenterIn the event this information is protected by the Federal Confidentiality of Alcohol and Drug Abuse Patient Records regulations: The Federal rules restrict any use of the information to criminally investigate or prosecute any alcohol or drug abuse patient.[facility] CenterIn the event this information is protected by the Federal Confidentiality of Alcohol and Drug Abuse Patient Records regulations: The Federal rules restrict any use of the information to criminally investigate or prosecute any alcohol or drug abuse patient.[facility] CenterIn the event this information is protected by the Federal Confidentiality of Alcohol and Drug Abuse Patient Records regulations: The Federal rules restrict any use of the information to criminally investigate or prosecute any alcohol or drug abuse patient.[facility] CenterIn the event this information is protected by the Federal Confidentiality of Alcohol and Drug Abuse Patient Records regulations: The Federal rules restrict any use of the information to criminally investigate or prosecute any alcohol or drug abuse patient.[facility] CenterIn the event this information is protected by the Federal Confidentiality of Alcohol and Drug Abuse Patient Records regulations: The Federal rules restrict any use of the information to criminally investigate or prosecute any alcohol or drug abuse patient.[facility] CenterIn the event this information is protected by the Federal Confidentiality of Alcohol and Drug Abuse Patient Records regulations: The Federal rules restrict any use of the information to criminally investigate or prosecute any alcohol or drug abuse patient.[facility] CenterIn the event this information is protected by the Federal Confidentiality of Alcohol and Drug Abuse Patient Records regulations: The Federal rules restrict any use of the information to criminally investigate or prosecute any alcohol or drug abuse patient.[facility] CenterIn the event this information is protected by the Federal Confidentiality of Alcohol and Drug Abuse Patient Records regulations: The Federal rules restrict any use of the information to criminally investigate or prosecute any alcohol or drug abuse patient.[facility] CenterIn the event this information is protected by the Federal Confidentiality of Alcohol and Drug Abuse Patient Records regulations: The Federal rules restrict any use of the information to criminally investigate or prosecute any alcohol or drug abuse patient.[facility] CenterIn the event this information is protected by the Federal Confidentiality of Alcohol and Drug Abuse Patient Records regulations: The Federal rules restrict any use of the information to criminally investigate or prosecute any alcohol or drug abuse patient.[facility] CenterIn the event this information is protected by the Federal Confidentiality of Alcohol and Drug Abuse Patient Records regulations: The Federal rules restrict any use of the information to criminally investigate or prosecute any alcohol or drug abuse patient.[facility] CenterIn the event this information is protected by the Federal Confidentiality of Alcohol and Drug Abuse Patient Records regulations: The Federal rules restrict any use of the information to criminally investigate or prosecute any alcohol or drug abuse patient.[facility] CenterIn the event this information is protected by the Federal Confidentiality of Alcohol and Drug Abuse Patient Records regulations: The Federal rules restrict any use of the information to criminally investigate or prosecute any alcohol or drug abuse patient.[facility] CenterIn the event this information is protected by the Federal Confidentiality of Alcohol and Drug Abuse Patient Records regulations: The Federal rules restrict any use of the information to criminally investigate or prosecute any alcohol or drug abuse patient.[facility] CenterIn the event this information is protected by the Federal Confidentiality of Alcohol and Drug Abuse Patient Records regulations: The Federal rules restrict any use of the information to criminally investigate or prosecute any alcohol or drug abuse patient.[facility] CenterIn the event this information is protected by the Federal Confidentiality of Alcohol and Drug Abuse Patient Records regulations: The Federal rules restrict any use of the information to criminally investigate or prosecute any alcohol or drug abuse patient.[facility] CenterIn the event this information is protected by the Federal Confidentiality of Alcohol and Drug Abuse Patient Records regulations: The Federal rules restrict any use of the information to criminally investigate or prosecute any alcohol or drug abuse patient.[facility] CenterIn the event this information is protected by the Federal Confidentiality of Alcohol and Drug Abuse Patient Records regulations: The Federal rules restrict any use of the information to criminally investigate or prosecute any alcohol or drug abuse patient.[facility] CenterIn the event this information is protected by the Federal Confidentiality of Alcohol and Drug Abuse Patient Records regulations: The Federal rules restrict any use of the information to criminally investigate or prosecute any alcohol or drug abuse patient.[facility] CenterIn the event this information is protected by the Federal Confidentiality of Alcohol and Drug Abuse Patient Records regulations: The Federal rules restrict any use of the information to criminally investigate or prosecute any alcohol or drug abuse patient.[facility] CenterIn the event this information is protected by the Federal Confidentiality of Alcohol and Drug Abuse Patient Records regulations: The Federal rules restrict any use of the information to criminally investigate or prosecute any alcohol or drug abuse patient.[facility] CenterIn the event this information is protected by the Federal Confidentiality of Alcohol and Drug Abuse Patient Records regulations: The Federal rules restrict any use of the information to criminally investigate or prosecute any alcohol or drug abuse patient.[facility] CenterIn the event this information is protected by the Federal Confidentiality of Alcohol and Drug Abuse Patient Records regulations: The Federal rules restrict any use of the information to criminally investigate or prosecute any alcohol or drug abuse patient.[facility] CenterIn the event this information is protected by the Federal Confidentiality of Alcohol and Drug Abuse Patient Records regulations: The Federal rules restrict any use of the information to criminally investigate or prosecute any alcohol or drug abuse patient.[facility] CenterIn the event this information is protected by the Federal Confidentiality of Alcohol and Drug Abuse Patient Records regulations: The Federal rules restrict any use of the information to criminally investigate or prosecute any alcohol or drug abuse patient.[facility] CenterIn the event this information is protected by the Federal Confidentiality of Alcohol and Drug Abuse Patient Records regulations: The Federal rules restrict any use of the information to criminally investigate or prosecute any alcohol or drug abuse patient.[facility] CenterIn the event this information is protected by the Federal Confidentiality of Alcohol and Drug Abuse Patient Records regulations: The Federal rules restrict any use of the information to criminally investigate or prosecute any alcohol or drug abuse patient.[facility] CenterIn the event this information is protected by the Federal Confidentiality of Alcohol and Drug Abuse Patient Records regulations: The Federal rules restrict any use of the information to criminally investigate or prosecute any alcohol or drug abuse patient.[facility] CenterIn the event this information is protected by the Federal Confidentiality of Alcohol and Drug Abuse Patient Records regulations: The Federal rules restrict any use of the information to criminally investigate or prosecute any alcohol or drug abuse patient.[facility] CenterIn the event this information is protected by the Federal Confidentiality of Alcohol and Drug Abuse Patient Records regulations: The Federal rules restrict any use of the information to criminally investigate or prosecute any alcohol or drug abuse patient.[facility] CenterIn the event this information is protected by the Federal Confidentiality of Alcohol and Drug Abuse Patient Records regulations: The Federal rules restrict any use of the information to criminally investigate or prosecute any alcohol or drug abuse patient.[facility] CenterIn the event this information is protected by the Federal Confidentiality of Alcohol and Drug Abuse Patient Records regulations: The Federal rules restrict any use of the information to criminally investigate or prosecute any alcohol or drug abuse patient.[facility] CenterIn the event this information is protected by the Federal Confidentiality of Alcohol and Drug Abuse Patient Records regulations: The Federal rules restrict any use of the information to criminally investigate or prosecute any alcohol or drug abuse patient.[facility] CenterIn the event this information is protected by the Federal Confidentiality of Alcohol and Drug Abuse Patient Records regulations: The Federal rules restrict any use of the information to criminally investigate or prosecute any alcohol or drug abuse patient.[facility] CenterIn the event this information is protected by the Federal Confidentiality of Alcohol and Drug Abuse Patient Records regulations: The Federal rules restrict any use of the information to criminally investigate or prosecute any alcohol or drug abuse patient.[facility] CenterIn the event this information is protected by the Federal Confidentiality of Alcohol and Drug Abuse Patient Records regulations: The Federal rules restrict any use of the information to criminally investigate or prosecute any alcohol or drug abuse patient.[facility] CenterIn the event this information is protected by the Federal Confidentiality of Alcohol and Drug Abuse Patient Records regulations: The Federal rules restrict any use of the information to criminally investigate or prosecute any alcohol or drug abuse patient.[facility] CenterIn the event this information is protected by the Federal Confidentiality of Alcohol and Drug Abuse Patient Records regulations: The Federal rules restrict any use of the information to criminally investigate or prosecute any alcohol or drug abuse patient.[facility] CenterIn the event this information is protected by the Federal Confidentiality of Alcohol and Drug Abuse Patient Records regulations: The Federal rules restrict any use of the information to criminally investigate or prosecute any alcohol or drug abuse patient.[facility] CenterIn the event this information is protected by the Federal Confidentiality of Alcohol and Drug Abuse Patient Records regulations: The Federal rules restrict any use of the information to criminally investigate or prosecute any alcohol or drug abuse patient.[facility] CenterIn the event this information is protected by the Federal Confidentiality of Alcohol and Drug Abuse Patient Records regulations: The Federal rules restrict any use of the information to criminally investigate or prosecute any alcohol or drug abuse patient.[facility] CenterIn the event this information is protected by the Federal Confidentiality of Alcohol and Drug Abuse Patient Records regulations: The Federal rules restrict any use of the information to criminally investigate or prosecute any alcohol or drug abuse patient.[facility] CenterIn the event this information is protected by the Federal Confidentiality of Alcohol and Drug Abuse Patient Records regulations: The Federal rules restrict any use of the information to criminally investigate or prosecute any alcohol or drug abuse patient.[facility] CenterIn the event this information is protected by the Federal Confidentiality of Alcohol and Drug Abuse Patient Records regulations: The Federal rules restrict any use of the information to criminally investigate or prosecute any alcohol or drug abuse patient.[facility] CenterIn the event this information is protected by the Federal Confidentiality of Alcohol and Drug Abuse Patient Records regulations: The Federal rules restrict any use of the information to criminally investigate or prosecute any alcohol or drug abuse patient.[facility] CenterIn the event this information is protected by the Federal Confidentiality of Alcohol and Drug Abuse Patient Records regulations: The Federal rules restrict any use of the information to criminally investigate or prosecute any alcohol or drug abuse patient.[facility] CenterIn the event this information is protected by the Federal Confidentiality of Alcohol and Drug Abuse Patient Records regulations: The Federal rules restrict any use of the information to criminally investigate or prosecute any alcohol or drug abuse patient.[facility] CenterIn the event this information is protected by the Federal Confidentiality of Alcohol and Drug Abuse Patient Records regulations: The Federal rules restrict any use of the information to criminally investigate or prosecute any alcohol or drug abuse patient.[facility] CenterIn the event this information is protected by the Federal Confidentiality of Alcohol and Drug Abuse Patient Records regulations: The Federal rules restrict any use of the information to criminally investigate or prosecute any alcohol or drug abuse patient.[facility] CenterIn the event this information is protected by the Federal Confidentiality of Alcohol and Drug Abuse Patient Records regulations: The Federal rules restrict any use of the information to criminally investigate or prosecute any alcohol or drug abuse patient.[facility] CenterIn the event this information is protected by the Federal Confidentiality of Alcohol and Drug Abuse Patient Records regulations: The Federal rules restrict any use of the information to criminally investigate or prosecute any alcohol or drug abuse patient.[facility] CenterIn the event this information is protected by the Federal Confidentiality of Alcohol and Drug Abuse Patient Records regulations: The Federal rules restrict any use of the information to criminally investigate or prosecute any alcohol or drug abuse patient.[facility] CenterIn the event this information is protected by the Federal Confidentiality of Alcohol and Drug Abuse Patient Records regulations: The Federal rules restrict any use of the information to criminally investigate or prosecute any alcohol or drug abuse patient.[facility] CenterIn the event this information is protected by the Federal Confidentiality of Alcohol and Drug Abuse Patient Records regulations: The Federal rules restrict any use of the information to criminally investigate or prosecute any alcohol or drug abuse patient.[facility] CenterIn the event this information is protected by the Federal Confidentiality of Alcohol and Drug Abuse Patient Records regulations: The Federal rules restrict any use of the information to criminally investigate or prosecute any alcohol or drug abuse patient.[facility] CenterIn the event this information is protected by the Federal Confidentiality of Alcohol and Drug Abuse Patient Records regulations: The Federal rules restrict any use of the information to criminally investigate or prosecute any alcohol or drug abuse patient.[facility] CenterIn the event this information is protected by the Federal Confidentiality of Alcohol and Drug Abuse Patient Records regulations: The Federal rules restrict any use of the information to criminally investigate or prosecute any alcohol or drug abuse patient.[facility] CenterIn the event this information is protected by the Federal Confidentiality of Alcohol and Drug Abuse Patient Records regulations: The Federal rules restrict any use of the information to criminally investigate or prosecute any alcohol or drug abuse patient.[facility] CenterIn the event this information is protected by the Federal Confidentiality of Alcohol and Drug Abuse Patient Records regulations: The Federal rules restrict any use of the information to criminally investigate or prosecute any alcohol or drug abuse patient.[facility] CenterIn the event this information is protected by the Federal Confidentiality of Alcohol and Drug Abuse Patient Records regulations: The Federal rules restrict any use of the information to criminally investigate or prosecute any alcohol or drug abuse patient.[facility] CenterIn the event this information is protected by the Federal Confidentiality of Alcohol and Drug Abuse Patient Records regulations: The Federal rules restrict any use of the information to criminally investigate or prosecute any alcohol or drug abuse patient.[facility] CenterIn the event this information is protected by the Federal Confidentiality of Alcohol and Drug Abuse Patient Records regulations: The Federal rules restrict any use of the information to criminally investigate or prosecute any alcohol or drug abuse patient.[facility] CenterIn the event this information is protected by the Federal Confidentiality of Alcohol and Drug Abuse Patient Records regulations: The Federal rules restrict any use of the information to criminally investigate or prosecute any alcohol or drug abuse patient.[facility] CenterIn the event this information is protected by the Federal Confidentiality of Alcohol and Drug Abuse Patient Records regulations: The Federal rules restrict any use of the information to criminally investigate or prosecute any alcohol or drug abuse patient.[facility] CenterIn the event this information is protected by the Federal Confidentiality of Alcohol and Drug Abuse Patient Records regulations: The Federal rules restrict any use of the information to criminally investigate or prosecute any alcohol or drug abuse patient.[facility] Care Teams (unrecognized sec tion and content) Spacecraft Systems Engineer Relationship Specialty Start Date End Date Herminia Case MD [address] [place] [id number] PCP - General Family Practice 12/12/18 Spacecraft Systems Engineer Relationship Specialty Start Date End Date Herminia Case MD [address] [place] [address] PCP - General Family Practice 12/12/18 Spacecraft Systems Engineer Relationship Specialty Start Date End Date Herminia Case MD [address] [place] [address] PCP - General Family Practice 12/12/18 Spacecraft Systems Engineer Relationship Specialty Start Date End Date Herminia Case MD [address] [place] [address] PCP - General Family Practice 12/12/18 Spacecraft Systems Engineer Relationship Specialty Start Date End Date Herminia Case MD [address] [place] [address] PCP - General Family Practice 12/12/18 Spacecraft Systems Engineer Relationship Specialty Start Date End Date Herminia Case MD PCP - General 04/15/15 Spacecraft Systems Engineer Relationship Specialty Start Date End Date Herminia Case MD PCP - General 04/15/15 Spacecraft Systems Engineer Relationship Specialty Start Date End Date Herminia Case MD [address] [place] [address] PCP - General Family Practice 12/12/18 Spacecraft Systems Engineer Relationship Specialty Start Date End Date Herminia Case MD [address] [place] [address] PCP - General Family Practice 12/12/18 Spacecraft Systems Engineer Relationship Specialty Start Date End Date Herminia Case MD [address] [place] [address] PCP - General Family Practice 12/12/18 Spacecraft Systems Engineer Relationship Specialty Start Date End Date Herminia Case MD [address] [place] [address] PCP - General Family Practice 12/12/18 Spacecraft Systems Engineer Relationship Specialty Start Date End Date Herminia Case MD [address] [place] [address] PCP - General Family Medicine 12/12/18 Spacecraft Systems Engineer Relationship Specialty Start Date End Date Herminia Case MD [address] [place] [address] PCP - General Family Medicine 12/12/18 Spacecraft Systems Engineer Relationship Specialty Start Date End Date Herminia Case MD [address] [place] [address] PCP - General Family Medicine 12/12/18 Spacecraft Systems Engineer Relationship Specialty Start Date End Date Herminia Case MD [address] [place] [address] PCP - General Family Medicine 12/12/18 Spacecraft Systems Engineer Relationship Specialty Start Date End Date Herminia Case MD [address] [place] [address] PCP - General Family Medicine 12/12/18 Spacecraft Systems Engineer Relationship Specialty Start Date End Date Herminia Case MD [address] [place] [address] PCP - General Family Medicine 12/12/18 Spacecraft Systems Engineer Relationship Specialty Start Date End Date Herminia Case MD [address] [place] [address] PCP - General Family Medicine 12/12/18 Spacecraft Systems Engineer Relationship Specialty Start Date End Date Herminia Case MD [address] [place] [address] PCP - General Family Medicine 12/12/18 Spacecraft Systems Engineer Relationship Specialty Start Date End Date Herminia Case MD [address] [place] [address] PCP - General Family Medicine 12/12/18 Spacecraft Systems Engineer Relationship Specialty Start Date End Date Herminia Case MD [address] [place] [address] PCP - General Family Medicine 12/12/18 Spacecraft Systems Engineer Relationship Specialty Start Date End Date Herminia Case MD [address] [place] [address] PCP - General Family Medicine 12/12/18 Spacecraft Systems Engineer Relationship Specialty Start Date End Date Herminia Case MD [address] [place] [address] PCP - General Family Medicine 12/12/18 Spacecraft Systems Engineer Relationship Specialty Start Date End Date Herminia Case MD [address] [place] [address] PCP - General Family Medicine 12/12/18 Spacecraft Systems Engineer Relationship Specialty Start Date End Date Herminia Case MD [address] [place] [address] PCP - General Family Medicine 12/12/18 Spacecraft Systems Engineer Relationship Specialty Start Date End Date Herminia Case MD [address] [place] [address] PCP - General Family Medicine 12/12/18 Spacecraft Systems Engineer Relationship Specialty Start Date End Date Herminia Case MD [address] [place] [address] PCP - General Family Medicine 12/12/18 Spacecraft Systems Engineer Relationship Specialty Start Date End Date Herminia Case MD [address] [place] [address] PCP - General Family Medicine 12/12/18 Spacecraft Systems Engineer Relationship Specialty Start Date End Date Herminia Case MD [address] [place], [place] [id number] PCP - General Family Medicine 12/12/18 Spacecraft Systems Engineer Relationship Specialty Start Date End Date Herminia Case MD [address] [place] [id number] PCP - General 04/15/15 Ziyad Menendez MD [address] [facility] [place], [place] [id number] Consulting Physician Gynecologic Oncology 03/12/22 Sally Rocha 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 - MOTION PI[employer]URE SET GRIP [address] [facility] [address] [place], [place] [id number] Nurse Practitioner Certified Nurse Practitioner 04/21/22 Kisha Pepe APRN - [employer] GRIP [address] [place] [address] [address] [place], [place] [id number] Nurse Practitioner Nurse Practitioner 10/20/22 Spacecraft Systems Engineer Relationship Specialty Start Date End Date Herminia Case MD [address] [place] [address] PCP - General Family Medicine 12/12/18 Spacecraft Systems Engineer Relationship Specialty Start Date End Date Herminia Case MD [address] [place] [address] PCP - General Family Medicine 12/12/18 Spacecraft Systems Engineer Relationship Specialty Start Date End Date Herminia Case MD [address] [place] [address] PCP - General 04/15/15 Ziyad Menendez MD [address] [facility] [place] [address] Consulting Physician Gynecologic Oncology 03/12/22 Sally Rocha APRN - MOTION PI[employer]URE SET GRIP [address] [facility] [address] [place], [place] [id number] Nurse Practitioner Certified Nurse Practitioner 04/21/22 Kisha Pepe APRN - [employer] GRIP [address] [place] [address] [address] [place] [address] Nurse Practitioner Nurse Practitioner 10/20/22 Spacecraft Systems Engineer Relationship Specialty Start Date End Date Herminia Case MD [address] [place] [address] PCP - General Family Medicine 12/12/18 Spacecraft Systems Engineer Relationship Specialty Start Date End Date Herminia Case MD [address] [place] [address] PCP - General 04/15/15 Ziyad Menendez MD [address] [place] [address], [address] [place] [address] Consulting Physician Gynecologic Oncology 03/12/22 Sally Rocha APRN - MOTION PI[employer]URE SET GRIP [address] [facility] [address] [place] [address] Nurse Practitioner Certified Nurse Practitioner 04/21/22 Kisha Pepe APRN - MOT[employer] PI[employer]URE SET GRIP [address] [facility] [address] [place] [address] Nurse Practitioner Nurse Practitioner 10/20/22 Spacecraft Systems Engineer Relationship Specialty Start Date End Date Herminia Case MD [address] [place] [address] PCP - General Family Medicine 12/12/18 Spacecraft Systems Engineer Relationship Specialty Start Date End Date Herminia Case MD [address] [place] [address] PCP - General Family Medicine 12/12/18 Spacecraft Systems Engineer Relationship Specialty Start Date End Date Herminia Case MD [address] [place] [address] PCP - General Family Medicine 12/12/18 Spacecraft Systems Engineer Relationship Specialty Start Date End Date Herminia Case MD [address] [place] [address] PCP - General Family Medicine 12/12/18 Spacecraft Systems Engineer Relationship Specialty Start Date End Date Herminia Case MD [address] [place] [address] PCP - General Family Medicine 12/12/18 Spacecraft Systems Engineer Relationship Specialty Start Date End Date Herminia Case MD [address] [place] [address] PCP - General Family Medicine 12/12/18 Spacecraft Systems Engineer Relationship Specialty Start Date End Date Herminia Case MD [address] [place] [address] PCP - General Family Medicine 12/12/18 Spacecraft Systems Engineer Relationship Specialty Start Date End Date Herminia Case MD [address] [place] [address] PCP - General Family Medicine 12/12/18 Spacecraft Systems Engineer Relationship Specialty Start Date End Date Herminia Case MD [address] [place] [address] PCP - General Family Medicine 12/12/18 Spacecraft Systems Engineer Relationship Specialty Start Date End Date Herminia Case MD [address] [place] [address] PCP - General Family Medicine 12/12/18 Spacecraft Systems Engineer Relationship Specialty Start Date End Date Herminia Case MD [address] [place] [address] PCP - General Family Medicine 12/12/18 Spacecraft Systems Engineer Relationship Specialty Start Date End Date Herminia Case MD [address] [place] [address] PCP - General 04/15/15 Ziyad Menendez MD [address] [facility] [address] [place] [address] Consulting Physician Gynecologic Oncology 03/12/22 Sally Rocha 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 - MOTION PICTURE SET GRIP 161 [facility] [address] [place], [place] [id number] Nurse Practitioner Certified Nurse Practitioner 04/21/22 Kisha Pepe 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 - MOTION PICTURE SET GRIP 161 [facility] [address] [place], [place] [id number] Nurse Practitioner Nurse Practitioner 10/20/22 Spacecraft Systems Engineer Relationship Specialty Start Date End Date Herminia Case MD [address] [place] [address] PCP - General Family Medicine 12/12/18 Spacecraft Systems Engineer Relationship Specialty Start Date End Date Herminia Case MD [address] [place] [address] PCP - General Family Medicine 12/12/18 Spacecraft Systems Engineer Relationship Specialty Start Date End Date Herminia Case MD [address] [place], [place] [id number] PCP - General 04/15/15 Ziyad Menendez MD [address] [facility] [address] [place] [address] Consulting Physician Gynecologic Oncology 03/12/22 Sally Rocha 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 - MOTION PICTURE SET GRIP 161 [facility] [address] [place], [place] [id number] Nurse Practitioner Certified Nurse Practitioner 04/21/22 Kisha Pepe 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 - MOTION PICTURE SET GRIP 161 [facility] [address] [place] [address] Nurse Practitioner Nurse Practitioner 10/20/22 Spacecraft Systems Engineer Relationship Specialty Start Date End Date Herminia Case MD [address] [place] [address] PCP - General Family Medicine 12/12/18 Spacecraft Systems Engineer Relationship Specialty Start Date End Date Herminia Case MD [address] [place] [address] PCP - General Family Medicine 12/12/18 Spacecraft Systems Engineer Relationship Specialty Start Date End Date Herminia Case MD [address] [place] [address] PCP - General Family Medicine 12/12/18 Spacecraft Systems Engineer Relationship Specialty Start Date End Date Herminia Case MD [address] [place] [address] PCP - General Family Medicine 12/12/18 Spacecraft Systems Engineer Relationship Specialty Start Date End Date Herminia Case MD [address] [place] [address] PCP - General Family Medicine 12/12/18 Spacecraft Systems Engineer Relationship Specialty Start Date End Date Herminia Case MD [address] [place] [address] PCP - General Family Medicine 12/12/18 Spacecraft Systems Engineer Relationship Specialty Start Date End Date Herminia Case MD [address] [place] [address] PCP - General Family Medicine 12/12/18 Spacecraft Systems Engineer Relationship Specialty Start Date End Date Herminia Case MD [address] [place] [address] PCP - General Family Medicine 12/12/18 Spacecraft Systems Engineer Relationship Specialty Start Date End Date Herminia Case MD [address] [place] [address] PCP - General Family Medicine 12/12/18 Spacecraft Systems Engineer Relationship Specialty Start Date End Date Herminia Case MD [address] [place] [address] PCP - General Family Medicine 12/12/18 Spacecraft Systems Engineer Relationship Specialty Start Date End Date Herminia Case MD [address] [place] [address] PCP - General Family Medicine 12/12/18 Spacecraft Systems Engineer Relationship Specialty Start Date End Date Herminia Case MD [address] [place] [address] PCP - General 04/15/15 Ziyad Menendez MD [address] [facility] [address] [place] [address] Consulting Physician Gynecologic Oncology 03/12/22 Sally Rocha APRN - MOTION PICTURE SET GRIP 161 [facility] [address] [place] [address] Nurse Practitioner Certified Nurse Practitioner 04/21/22 Kisha Pepe APRN - MOTION PICTURE SET GRIP 161 [facility] [address] [place] [address] Nurse Practitioner Nurse Practitioner 10/20/22 Spacecraft Systems Engineer Relationship Specialty Start Date End Date Herminia Case MD [address] [place] [address] PCP - General Family Medicine 12/12/18 Spacecraft Systems Engineer Relationship Specialty Start Date End Date Herminia Case MD [address] [place] [address] PCP - General Family Medicine 12/12/18 Spacecraft Systems Engineer Relationship Specialty Start Date End Date Herminia Case MD [address] [place] [address] PCP - General 04/15/15 Ziyad Menendez MD [address] [facility] [address] [place] [address] Consulting Physician Gynecologic Oncology 03/12/22 Sally Rocha APRN - MOTION PICTURE SET GRIP 161 [address] [facility] [address] [place] [address] Nurse Practitioner Certified Nurse Practitioner 04/21/22 Kisha Pepe APRN - NADEEM 161 [facility] [address] [place] [address] Nurse Practitioner Nurse Practitioner 10/20/22 Spacecraft Systems Engineer Relationship Specialty Start Date End Date Herminia Case MD [address] [place] [address] PCP - General Family Medicine 12/12/18 Spacecraft Systems Engineer Relationship Specialty Start Date End Date Herminia Case MD [address] [place] [address] PCP - General 04/15/15 Ziyad Menendez MD 161 [facility] [address] [place] [address] Consulting Physician Gynecologic Oncology 03/12/22 Sally Rocha APRN - NADEEM 161 [address] [facility] [address] [place] [address] Nurse Practitioner Certified Nurse Practitioner 04/21/22 Kisha Pepe APRN - MOTION PICTURE SET GRIP 161 [address] [facility] [place] [address] Nurse Practitioner Nurse Practitioner 10/20/22 Spacecraft Systems Engineer Relationship Specialty Start Date End Date Herminia Case MD [address] [place] [address] PCP - General Family Medicine 12/12/18 Spacecraft Systems Engineer Relationship Specialty Start Date End Date Herminia Case MD [address] [place] [address] PCP - General 04/15/15 Ziyad Menendez MD 161 [facility] [place] [address] Consulting Physician Gynecologic Oncology 03/12/22 Sally Rocha, 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 - MOTION PICTURE SET GRIP 161 [facility] [address] [place] [address] Nurse Practitioner Certified Nurse Practitioner 04/21/22 Spacecraft Systems Engineer Relationship Specialty Start Date End Date Herminia Case MD [address] [place] [address] PCP - General 04/15/15 Ziyad Menendez MD 161 [facility] [place] [address] Consulting Physician Gynecologic Oncology 03/12/22 Sally Rocha, 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 - MOTION PICTURE SET GRIP 161 [facility] [address] [place] [address] Nurse Practitioner Certified Nurse Practitioner 04/21/22 Spacecraft Systems Engineer Relationship Specialty Start Date End Date Herminia Case MD [address] [place] [address] PCP - General Family Medicine 12/12/18 Melva Juárez PA-C [address] [place] [address] Assembler Handbags Family [facility] 02/26/24 Spacecraft Systems Engineer Relationship Specialty Start Date End Date Herminia Case MD [address] [place] [address] PCP - General Family Medicine 12/12/18 Melva Juárez PA-C [address] [place] [address] Assembler Handbags Family [facility] 02/26/24 Spacecraft Systems Engineer Relationship Specialty Start Date End Date Herminia Case MD [address] [place] [address] PCP - General Family Medicine 12/12/18 Melva Juárez PA-C [address] [place] [address] Assembler Handbags [facility] 02/26/24 Spacecraft Systems Engineer Relationship Specialty Start Date End Date Herminia Case MD [address] [place] [address] PCP - General Family Medicine 12/12/18 Melva Juárez PA-C [address] [place] [address] Assembler Handbags [facility] 02/26/24 Spacecraft Systems Engineer Relationship Specialty Start Date End Date Herminia Case MD [address] [place] [address] PCP - General Family Medicine 12/12/18 Melva Juárez PA-C [address] [place] [address] Assembler Handbags Family Medicine 02/26/24 Spacecraft Systems Engineer Relationship Specialty Start Date End Date Herminia Case MD [address] [place] [address] PCP - General Family Medicine 12/12/18 Melva Juárez PA-C [address] [place] [address] Assembler Handbags Family Medicine 02/26/24 Spacecraft Systems Engineer Relationship Specialty Start Date End Date Herminia Case MD [address] [place] [address] PCP - General 04/15/15 Ziyad Menendez MD [address] [facility] [address] [place] [address] Consulting Physician Gynecologic Oncology 03/12/22 Sally Rocha APRN - NADEEM 161 [facility] [address] [place] [address] Nurse Practitioner Certified Nurse Practitioner 04/21/22 Kisha Pepe APRN - NADEEM 161 [facility] [address] [place] [address] Nurse Practitioner Nurse Practitioner 10/20/22 Spacecraft Systems Engineer Relationship Specialty Start Date End Date Herminia Case MD [address] [place] [address] PCP - General Family Medicine 12/12/18 Melva Juárez PA-C [address] [place] [address] Assembler Handbags Family Medicine 02/26/24 Spacecraft Systems Engineer Relationship Specialty Start Date End Date Herminia Case MD [address] [place] [address] PCP - General Family Medicine 12/12/18 Melva Juárez PA-C [address] [place] [address] Assembler Handbags Family Medicine 02/26/24 Spacecraft Systems Engineer Relationship Specialty Start Date End Date Herminia Case MD [address] [place] [address] PCP - General Family Medicine 12/12/18 Melva Juárez PA-C [address] [place] [address] Assembler Handbags Family Medicine 02/26/24 Herminia Case MD [address] [place] [address] Home Care Provider Family Medicine 06/07/24 Herminia Case MD [address] [place] [address] Referring Family Medicine 06/07/24 Spacecraft Systems Engineer Relationship Specialty Start Date End Date Herminia Case MD [address] [place] [address] PCP - General Family Medicine 12/12/18 Melva Juárez PA-C [address] [place] [address] Assembler Handbags Family Medicine 02/26/24 Herminia Case MD [address] [place] [address] Home Care Provider Family Medicine 06/07/24 Herminia Case MD [address] [place] [address] Referring Family Medicine 06/07/24 Spacecraft Systems Engineer Relationship Specialty Start Date End Date Herminia Case MD [address] [place] [address] PCP - General Family Medicine 12/12/18 Melva Juárez PA-C [address] [place] [address] Assembler Handbags Family Medicine 02/26/24 Herminia Case MD [address] [place] [address] Home Care Provider Family Medicine 06/07/24 Herminia Case MD [address] [place] [address] Referring Family Medicine 06/07/24 Spacecraft Systems Engineer Relationship Specialty Start Date End Date Herminia Case MD [address] [place] [address] PCP - General Family Medicine 12/12/18 Melva Juárez PA-C [address] [place] [address] Assembler Handbags Family Medicine 02/26/24 Herminia Case MD [address] [place] [address] Home Care Provider Family Medicine 06/07/24 Herminia Case MD [address] [place] [address] Referring Family Medicine 06/07/24 Spacecraft Systems Engineer Relationship Specialty Start Date End Date Herminia Case MD [address] [place] [address] PCP - General Family Medicine 12/12/18 Melva Juárez PA-C [address] [place] [address] Assembler Handbags Family Medicine 02/26/24 Herminia Case MD [address] [place] [address] Home Care Provider Family Medicine 06/07/24 Herminia Case MD [address] [place] [address] Referring Family Medicine 06/07/24 Spacecraft Systems Engineer Relationship Specialty Start Date End Date Herminia Case MD [address] [place] [address] PCP - General Family Medicine 12/12/18 Melva Juárez PA-C [address] [place] [address] Assembler Handbags Family Medicine 02/26/24 Herminia Case MD [address] [place] [address] Home Care Provider Family Medicine 06/07/24 Herminia Case MD [address] [place] [address] Referring Family Medicine 06/07/24 Spacecraft Systems Engineer Relationship Specialty Start Date End Date Herminia Case MD [address] [place] [address] PCP - General Family Medicine 12/12/18 Melva Juárez PA-C [address] [place] [address] Assembler Handbags Family Medicine 02/26/24 Herminia Case MD [address] [place] [address] Home Care Provider Family Medicine 06/07/24 Herminia Case MD [address] [place] [address] Referring Family Medicine 06/07/24 Spacecraft Systems Engineer Relationship Specialty Start Date End Date Herminia Case MD [address] [place] [address] PCP - General 04/15/15 Ziyad Menendez MD [address] [address] Consulting Physician Gynecologic Oncology 03/12/22 Sally Rocha, 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 - MOTION PICTURE SET GRIP 161 [address] [facility] [address] [place] [address] Nurse Practitioner Certified Nurse Practitioner 04/21/22 Kisha Pepe APRN - MOTION PICTURE SET GRIP 161 [facility] [address] [place] [address] Nurse Practitioner Nurse Practitioner 10/20/22 Spacecraft Systems Engineer Relationship Specialty Start Date End Date Herminia Case MD [address] [place] [address] PCP - General 04/15/15 Ziyad Menendez MD [address] [facility] [address] [place] [address] Consulting Physician Gynecologic Oncology 03/12/22 Sally Rocha APRN - MOTION PICTURE SET GRIP 161 [facility] [address] [place] [address] Nurse Practitioner Certified Nurse Practitioner 04/21/22 Kisha Pepe APRN - CNP 161 [facility] [address] [place] [address] Nurse Practitioner Nurse Practitioner 10/20/22 Spacecraft Systems Engineer Relationship Specialty Start Date End Date Herminia Case MD [address] [place] [address] PCP - General Family Medicine 12/12/18 Melva Juárez PA-C [address] [place], [place] [address] Assembler Handbags Family Medicine 02/26/24 Herminia Case MD [address] [place] [address] Home Care Provider Family Medicine 06/07/24 Herminia Case MD [address] [place] [address] Referring Family Medicine 06/07/24 Spacecraft Systems Engineer Relationship Specialty Start Date End Date Herminia Case MD [address] [place] [address] PCP - General 04/15/15 Ziyad Menendez MD [address] [facility] [address] [place] [address] Consulting Physician Gynecologic Oncology 03/12/22 Sally Rocha 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 - MOTION PICTURE SET GRIP 161 [facility] [address] [place] [address] Nurse Practitioner Certified Nurse Practitioner 04/21/22 Kisha Pepe 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 - MOTION PICTURE SET GRIP 161 [facility] [address] [place] [address] Nurse Practitioner Nurse Practitioner 10/20/22 Spacecraft Systems Engineer Relationship Specialty Start Date End Date Herminia Case MD [address] [place] [address] PCP - General Family Medicine 12/12/18 Melva Juárez PA-C [address] [place] [address] Assembler Handbags Family Medicine 02/26/24 Herminia Case MD [address] [place] [address] Home Care Provider Family Medicine 06/07/24 Herminia Case MD [address] [place] [address] Referring Family Medicine 06/07/24 Spacecraft Systems Engineer Relationship Specialty Start Date End Date Herminia Case MD [address] [place] [address] PCP - General 04/15/15 Ziyad Menendez MD 161 [facility] [address] [place] [address] Consulting Physician Gynecologic Oncology 03/12/22 Sally Rocha APRN - MOTION PICTURE SET GRIP 161 [facility] [address] [place] [address] Nurse Practitioner Certified Nurse Practitioner 04/21/22 Kisha Pepe APRN - MOTION PICTURE SET GRIP 161 [facility] [address] [place] [address] Nurse Practitioner Nurse Practitioner 10/20/22 Spacecraft Systems Engineer Relationship Specialty Start Date End Date Herminia Case MD [address] [place] [address] PCP - General 04/15/15 Ziyad Menendez MD 161 [facility] [address] [place] [address] Consulting Physician Gynecologic Oncology 03/12/22 Sally Rocha APRN - MOTION PICTURE SET GRIP [address] [facility] [address] [place] [address] Nurse Practitioner Certified Nurse Practitioner 04/21/22 Kisha Pepe APRN - MOTION PICTURE SET GRIP 161 [address] [facility] [address] [place] [address] Nurse Practitioner Nurse Practitioner 10/20/22 Spacecraft Systems Engineer Relationship Specialty Start Date End Date Herminia Case MD [address] [place] [address] PCP - General 04/15/15 Ziyad Menendez MD 161 [facility] [address] [place] [address] Consulting Physician Gynecologic Oncology 03/12/22 Sally Rocha APRN - MOTION PICTURE SET GRIP 161 [facility] [address] [place], [place] [id number] Nurse Practitioner Certified Nurse Practitioner 04/21/22 Kisha Pepe APRN - MOTION PICTURE SET GRIP 161 [facility] [address] [place], [place] [id number] Nurse Practitioner Nurse Practitioner 10/20/22 Team Status: Inactive Member Role/Relationship Status Dates Jameson STALLINGS Attending physician Active St art: September 14, 2024 End: September 14, 2024 Team Status: Active Member Role/Relationship Status Dates Jameson STALLINGS Attending physician Active St art: September 17, 2024 Team Status: Active Member Role/Relationship Status Dates Jameson STALLINGS Attending physician Active St art: September 17, 2024 Jameson STALLINGS Referring Provider Active Sta rt: September 17, 2024 Team Status: Active Member Role/Relationship Status Dates Jameson STALLINGS Attending physician Active St art: October 01, 2024 Team Status: Active Member Role/Relationship Status Dates Jameson STALLINGS Attending physician Active St art: December 12, 2024 Team Status: Inactive Member Role/Relationship Status Dates Jameson STALLINGS Attending physician Active St art: September 17, 2024 End: September 17, 2024 Jameson STALLINGS Referring Provider Active Sta rt: September 17, 2024 End: September 17, 2024 Spacecraft Systems Engineer Relationship Specialty Start Date End Date Herminia Case MD [address] [place] [address] PCP - General 04/15/15 Ziyad Menendez MD [address] [address] Consulting Physician Gynecologic Oncology 03/12/22 Sally Rocha APRN - MOTION PICTURE SET GRIP [address] [address] Nurse Practitioner Certified Nurse Practitioner 04/21/22 Kisha Pepe APRN - MOTION PICTURE SET GRIP [address] [address] Nurse Practitioner Nurse Practitioner 10/20/22 Spacecraft Systems Engineer Relationship Specialty Start Date End Date Herminia Case MD [address] [place] [address] PCP - General 04/15/15 Ziyad Menendez MD [address] [address] Consulting Physician Gynecologic Oncology 03/12/22 Sally Rocha APRN - NADEEM [address] [address] Nurse Practitioner Certified Nurse Practitioner 04/21/22 Kisha Pepe APRN - MOTION PICTURE SET GRIP [address] [address] Nurse Practitioner Nurse Practitioner 10/20/22 Spacecraft Systems Engineer Relationship Specialty Start Date End Date Herminia Case MD [address] [place] [address] PCP - General 04/15/15 Ziyad Menendez MD 161 [facility] [address] [place] [address] Consulting Physician Gynecologic Oncology 03/12/22 Sally Rocha 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 - MOTION PICTURE SET GRIP 161 [facility] [address] [place] [address] Nurse Practitioner Certified Nurse Practitioner 04/21/22 Kisha Pepe APRN - MOTION PICTURE SET GRIP 161 [facility] [address] [place] [address] Nurse Practitioner Nurse Practitioner 10/20/22 Spacecraft Systems Engineer Relationship Specialty Start Date End Date Herminia Case MD [address] [place] [address] PCP - General 04/15/15 Ziyad Menendez MD [address] [facility] [address] [place] [address] Consulting Physician Gynecologic Oncology 03/12/22 Sally Rocha 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 - MOTION PICTURE SET GRIP 161 [facility] [address] [place] [address] Nurse Practitioner Certified Nurse Practitioner 04/21/22 Kisha Pepe 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 - MOTION PICTURE SET GRIP 161 [facility] [address] [place] [address] Nurse Practitioner Nurse Practitioner 10/20/22 Spacecraft Systems Engineer Relationship Specialty Start Date End Date Herminia Case MD [address] [place] [address] PCP - General 04/15/15 Ziyad Menendez MD [address] [facility] [address] [place] [address] Consulting Physician Gynecologic Oncology 03/12/22 Sally Rocha APRN - CNP [address] [facility] [address] [place], [place] [id number] Nurse Practitioner Certified Nurse Practitioner 04/21/22 Kisha Pepe APRN - MOTION PICTURE SET GRIP 161 [facility] [address] [place], [place] [id number] Nurse Practitioner Nurse Practitioner 10/20/22 Spacecraft Systems Engineer Relationship Specialty Start Date End Date Herminia Case MD [address] [place] [id number] PCP - General 04/15/15 Ziyad Menendez MD 161 [facility] [address] [place], [place] [id number] Consulting Physician Gynecologic Oncology 03/12/22 Sally Rocha APRN - CNP 161 [facility] [address] [place] [address] Nurse Practitioner Certified Nurse Practitioner 04/21/22 Kisha Pepe APRN - MOTION PICTURE SET GRIP 161 [facility] [address] [place] [address] Nurse Practitioner Nurse Practitioner 10/20/22 Goals (unrecognized section and content) Goals may be documented in a n alternate sectionGoals may be documented in an alternate section FOR RECORDS PERTAINING TO PATIENTS WHO ARE [...] BE BASED ON THE PRIMARY CLINICAL RECORDS. [facility]. provides no warranty or guarantee of the accuracy or completeness of information in this document.
[2025-01-28 07:41] LABS: Hematocrit 37.4 % (37-47); Hemoglobin 11.2 g/dL (12.0-15.0); Mean Corp Hgb Conc 29.9 g/dL (32-36); Mean Corpuscular Volume 96.1 fL (81-99); Mean Platelet Vol. 9.6 fl (6.2-12.0); Platelet Count 288 K/mm3 (150-450); RBC Distribution Width CV 13.7 % (11.6-14.6); RBC Distribution Width SD 49.0 fl (35.1-43.9); Red Blood Count 3.89 M/mm3 (4.2-5.4); White Blood Count 8.7 K/mm3 (4.4-11.0)
[2025-01-28 07:58] LABS: AST(SGOT) 25 U/L (<=31); Alanine Aminotransfer ALT/SGPT 32 U/L (<=34); Albumin, Serum 3.6 g/dL (3.4-4.8); Alkaline Phosphatase 98 U/L (35-104); Anion Gap 8 (5-15); BUN 17 mg/dL (4-19); BUN/Creat Ratio 33.5 RATIO (10-20); Calcium,Total 9.2 mg/dL (7.6-11.0); Carbon Dioxide 32.3 mmol/L (21.0-32.0); Chloride 101 mmol/L (98-108); Globulin 2.7 g/dL (2.2-4.2); Glucose 99 mg/dL (70-99); Potassium 4.4 mmol/L (3.3-5.1)
== END ==
LOC: OLS.SANC 05:00
PROVIDERS: Visit Provider Internal Medicine
DX: J44.9 Chronic obstructive pulmonary disease, unspecified (principal); E87.6 Hypokalemia
CPT/HCPCS: 36415; 80053; 85027

== ENCOUNTER → 2025-02-27 | Outpatient (REF) | payer MEDICARE, MEDICAID, SELFPAY ==
--- OUTSIDE RECORDS SUMMARY | 2025-02-27 04:16 | XMS RPT_ITS | CCD ---
Author Organization [facility]iniSy[facility] Care Team Providers Care Apprentice Funeral Director Name Role Phone Herminia Case Primary Care [...] Unavailable Herminia Case MD Primary Care Provider [phone] Herminia Case MD Primary Care Provider Herminia Case MD Primary Care Provider [phone] Ziyad Menendez MD Unavailable Aj SYSTEMS ANALYSIS MANAGER - NAILING MACHINE OPERATOR, Sally Unavailable Afshin SYSTEMS ANALYSIS MANAGER - NAILING MACHINE OPERATORKisha Unavailable Ziyad Menendez MD Unavailable Aj SYSTEMS ANALYSIS MANAGER - NAILING MACHINE OPERATOR, Sally Unavailable Ziyad Menendez MD Unavailable Herminia Case MD Primary Care Provider [phone] Herminia Case MD Primary Care Provider Ziyad Menendez MD Unavailable Aj SYSTEMS ANALYSIS MANAGER - NAILING MACHINE OPERATOR, Sally Unavailable Joseph ARREGUIN, Melva E Unavailable Evie MAHAJAN, Herminia King Primary Care Provider Evie MAHAJAN, Herminia Unavailable Evie MAHAJAN, Herminia Unavailable DISTEL, HERMINIA Primary Care Unavailable BARBI GOLDBERG Attending Unavailabl e DISTEL, HERMINIA Attending Unavailable DISTEL, HERMINIA Primary Care Unavailable DISTEL, HERMINIA Attending Unavailable DISTEL, HERMINIA Primary Care Unavailable DISTEL, HERMINIA Primary Care Unavailable SELF Referring Unavailable DISTEL, HERMINIA Attending Unavailable DISTEL, HERMINIA Primary Care Unavailable JOAQUINA MARTINEZ Attending Unava ilable Aj SYSTEMS ANALYSIS MANAGER - NAILING MACHINE OPERATOR, Sally Unavailable Afshin SYSTEMS ANALYSIS MANAGER - NAILING MACHINE OPERATOR, Kisha Unavailable Jameson Molina Attending Physician UnavailJameson Bloom Referring Provider Unavailab ELYSSA Lua Attending Unavailable DISTEL, HERMINIA Primary Care Unavailable DISTEL, HERMINIA Primary Care Unavailable BETSEY GRESHAM Consulting Unavailable NAGINEDEJUAN ALICEA Admitting Unavailable RENA BEVERLY Attending Unavailable DISTEL, HERMINIA Primary Care Unavailable LYNNBOY Green Admitting Unavailable BALBIR THOMAS Consulting Unavailable DAVE [...] Attending Unavailable DISTEL, HERMINIA Primary Care Unavailable Jameson Molina Attending Unavailable Ellis STALLINGS, Jameson Attending Unavailable Ellis STALLINGS, Jameson Attending Unavailable Jameson Molina Referring Unavailable aJmeson Molina Attending Unavailable Ellis STALLINGS, Jameson Attending Unavailable Katsaros OLS, Jameson Attending Unavailable Katsaros CHANDRAKANT, Jameson Attending Unavailable Ellis STALLINGS, Jameson Attending Unavailable Jameson Molina Referring Unavailable Allergies Allergy Classification Reported Allergen(s) Allergy Type Date of Onset Reaction(s) Facility (20 sources) Seasonal allergy; Translations: [SEASONAL ALLERGIES] Allergy to substance 08-16-2017 Intolerance [facility] Work Phone: (20 sources) Pollen Allergy to substance 08-16-2017 Unknown [facility] demandmart Medications Current Medications Medication Drug Class(es) Dates [...] intertrochanteric fracture of left femur, initial encounter ([facility]) Take 1 tablet by mouth [...] 6 HOURS PRN, Pain Severe (7-10), Starting [facility] 08/02/19 at 2107 Maximum dose of [...] mo uth twice daily for 10 days. 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 Take 2 tablets by [facility] at bedtime as needed. TAKE [address] [facility] AT BEDTIME NEEDED sodium chloride 30 mg/ml [...] Oral, 2 times daily, First dose on 07/31/24 at 1030, Maximum dose of acetaminophen is [...] daily, First dose (after last modification) on Tu01/15/25 at 2000 Start: 01-12-2025 End: 01-15-2025 3 [...] Inhalation, EVERY 6 HOURS PRN, Wheezing, Starting [facility] 08/02/19 at 2106 Start: 08-02-2019 albuterol [...] sodium chloride 0.9 % 250 mL IVPB (ADD-Olive) (2 sources) Start: 08-07-2023 End: 08-07-2023 azithromycin (Zithromax) 500 mg in sodium chloride 0.9 % 250 mL IVPB (ADD-Olive) 24 hr buPROPion hydrochloride 150 mg extended [...] on above: Take 1 capsule by [facility] once daily for 14 days. Take 1 capsule by [facility] once daily. 0.4 ml enoxaparin sodium [...] 05-21-2022 End: 05-21-2022 lidocaine-EPINEPHrine (Xylocaine W/EPI) 1 %-1:025541 injection 10 mL Start: 12-19-2019 End: 12-19-2019 lidocaine-EPINEPHrine 2 perc ent-1:325934 injection 2 ml fentaNYL 0.05 mg/ml injection [...] Oral, 2 times daily, First dose on 01/14/25 at 0900, Administer with plenty of fluids [...] Start: 08-20-2024 take 2 tablets by mo uth twice daily as needed for cough guaiFENesin [...] 12 hours or as directed by MD. 10 patch 10/16/2023 07/30/2024 Discontinued (Therapy completed) [...] PRN, opioid reversal, respiratory depression, Starting on 07/30/24 at 2308, +++ For RR Start: 09-20-2023 [...] reach optimal image enhancement polyethylene glycol 3350 70454 mg powder for oral solution (14 sources) [...] on above: Take 2 tablets by [facility] once daily. TAKE [address] [facility] EVERY DAY technetium Tc-99m medronate (Tc-MDP) radio-isotope [...] once daily. INHALE 2 PUFFS BY MO [facility] ONCE DAILY DIRECTED Problems Active Problems Problem Classification Problem Date Documented Da te Episodic/Chronic Acute cerebrovascular disease (3 sources) Ischemic [...] sources) Mixed hyperlipidemia; Translations: [Mixed hyperlipidemia] Chronic Mood disorders (20 sources) Recurrent major depression; [...] encounter] Onset: 05-21-2022 Resolved: 11-06-2022 05-21-2022 Episodic Fluid and electrolyte disorders (20 sources) Hyperosmolality and hypernatremia; Translations: [Hypokalemia] Onset: 09-17-2016 Resolved: 04-13-2018 09-22-2016 Episodic Fracture of neck of femur (hip) [...] Test Name Value Interpretation Reference Range Facility CBC-Complete Blood Cnt No Di ffon 01-28-2025 Erythrocyte distribution width (RBC) [Ratio] 13.7 % Normal 11.6-14.6 [facility] Comment on above: Order Comment: 311-1 Performed By: #### L 400.0001, #### [facility] [address] [place], [address] Hematocrit (Bld) [Volume fraction] 37.4 % Normal 37-47 [facility] Comment on above: Order Comment: 311-1 Performed By: #### L 400.0001, #### [facility] [address] [place], [address] Hemoglobin (Bld) [Mass/Vol] 11.2 g/dL Low 12.0-15.0 [facility] Comment on above: Order Comment: 311-1 Performed By: #### L 400.0001, M1.0 #### [facility] [address] [place], [address] MCH (RBC) [Entitic mass] 28.8 pg Normal 27.0-32.0 [facility] Comment on above: Order Comment: 311-1 Performed By: #### L 400.0001, #### [facility] [address] [place], [address] MCHC (RBC) [Mass/Vol] 29.9 g/dL Low 32-36 [facility] Comment on above: Order Comment: 311-1 Performed By: #### L 400.0001, #### [facility] [address] [place], [address] MCV (RBC) [Entitic vol] 96.1 fL Normal 81-99 [facility] Comment on above: Order Comment: 311-1 Performed By: #### L 400.0001, #### [facility] [address] [place], [address] Platelet mean volume (Bld) [Entitic vol] 9.6 fL Normal 6.2-12.0 [facility] Comment on above: Order Comment: 311-1 Performed By: #### L 400.0001, #### [facility] [address] [place], [address] Platelets (Bld) [#/Vol] 288 10*3/uL Normal 150-450 [facility] Comment on above: Order Comment: 311-1 Performed By: #### L 400.0001, #### [facility] [address] [place], [address] RBC (Bld) [#/Vol] 3.89 10*6/uL Low 4.2-5.4 [facility] Comment on above: Order Comment: 311-1 Performed By: #### L 400.0001, #### [facility] [address] [place], [address] RDW SD 49.0 fl High 35.1-43.9 [facility] Comment on above: Order Comment: 311-1 Performed By: #### L 400.0001, #### [facility] [address] [place], [address] WBC (Bld) [#/Vol] 8.7 10*3/uL Normal 4.4-11.0 [facility] Comment on above: Order Comment: 311-1 Performed By: #### L 400.0001, #### [facility] [address] [place], [address] Comprehensive Metabolic Prof nhon 01-28-2025 Albumin [Mass/Vol] 3.6 g/dL Normal 3.4-4.8 [facility] Comment on above: Order Comment: 311-1 Performed By: #### L 400.0001, #### [facility] [address] [place], [address] Albumin/Globulin [Mass ratio] 1.3 {ratio} Normal 0.9-2.4 [facility] Comment on above: Order Comment: 311-1 Performed By: #### L 400.0001, #### [facility] [address] [place], [address] ALK PHOS 98 U/L Normal 35-104 [facility] Comment on above: Order Comment: 311-1 Performed By: #### L 400.0001, #### [facility] [address] [place], [address] ALT [Catalytic activity/Vol] 32 U/L Normal <=34 [facility] Comment on above: Order Comment: 311-1 Performed By: #### L 400.0001, #### [facility] [address] [place], [address] AST [Catalytic activity/Vol] 25 U/L Normal <=31 [facility] Comment on above: Order Comment: 311-1 Performed By: #### L 400.0001, #### [facility] [address] [place], [address] Bilirubin [Mass/Vol] 0.20 mg/dL Normal 0.00-1.30 [facility] Comment on above: Order Comment: 311-1 Performed By: #### L 400.0001, #### [facility] [address] [place], [address] BUN/CRE 33.5 RATIO High 10-20 [facility] Comment on above: Order Comment: 311-1 Performed By: #### L 400.0001, #### [facility] [address] [place], [address] Calcium [Mass/Vol] 9.2 mg/dL Normal 7.6-11.0 [facility] Comment on above: Order Comment: 311-1 Performed By: #### L 400.0001, #### [facility] [address] [place], [address] Chloride [Moles/Vol] 101 mmol/L Normal 98-108 [facility] Comment on above: Order Comment: 311-1 Performed By: #### L 400.0001, #### [facility] [address] [place], [address] CO2 [Moles/Vol] 32.3 mmol/L High 21.0-32.0 [facility] Comment on above: Order Comment: 311-1 Performed By: #### L 400.0001, #### [facility] [address] [place], [address] Creatinine [Mass/Vol] 0.51 mg/dL Low 0.70-1.20 [facility] Comment on above: Order Comment: 311-1 Performed By: #### L 400.0001, #### [facility] [address] [place], [address] GAP 8 Normal 5-15 [facility] Comment on above: Order Comment: 311-1 Performed By: #### L 400.0001, #### [facility] [address] [place], [address] GFR/1.73 sq M.predicted among non-blacks MDRD (S/P/Bld) [Vol rate/Area] 102 mL/min/{1.73_m2} Normal >60 [facility] Comment on above: Order Comment: 311-1 Result Comment: mL/m in/1.73m2 CKD-EPI Creatinine Equation (2020) Performed By: #### L 400.0001, #### [facility] [address] [place], [address] Globulin (S) [Mass/Vol] 2.7 g/dL Normal 2.2-4.2 [facility] Comment on above: Order Comment: 311-1 Performed By: #### L 400.0001, #### [facility] [address] [place], [address] Glucose [Mass/Vol] 99 mg/dL Normal 70-99 [facility] Comment on above: Order Comment: 311-1 Performed By: #### L 400.0001, #### [facility] [address] [place], [address] Potassium [Moles/Vol] 4.4 mmol/L Normal 3.3-5.1 [facility] Comment on above: Order Comment: 311-1 Performed By: #### L 400.0001, #### [facility] [address] [place], [address] Sodium [Moles/Vol] 141 mmol/L Normal 133-145 [facility] Comment on above: Order Comment: 311-1 Performed By: #### L 400.0001, M100.2200 #### [facility] [address] [place], [address] T PROT 6.3 g/dL Normal 5.9-8.4 [facility] Comment on above: Order Comment: 311-1 Performed By: #### L 400.0001, M100.2200 #### [facility] [address] [place], [address] Urea nitrogen [Mass/Vol] 17 mg/dL Normal 4-19 [facility] Comment on above: Order Comment: 311-1 Performed By: #### L 400.0001, M100.2200 #### [facility] [address] [place], [address] 36on 01-24-2025 36 COPD Navigator Note Called patient on home phone. No answer. Left Voicemail. Normal [facility] [id number] 01-22-2025 [id number] Normal [facility] [id number] Care Home ICF - Return [facility] [address] [phone] [phone] Returning to Facility Normal [facility] [id number] Normal [facility] [id number] Normal [facility] [id number] Normal [facility] [id number] Transport requested 4PM in [employer]. Awaiting time confirmation. Normal [facility] [id number] Normal [facility] Bacteria identified Aer cx N om (Lower resp)Ordered By: Radha Ferguson on 01-22-2025 Gram Stain Result Few Epithelial cells per low power field Abnormal [facility] Gram Stain Result Moderate Polymorphonuclear leukocytes per low power field Abnormal [facility] Gram Stain Result Positive Abnormal [facility] ealth Interpretation and review of laboratory results Abnormal [facility] Laboratory - Microbiology an d Antimicrobial susceptibilityOrdered By: Radha Ferguson on 01-22-2025 Bacteria identified Aer cx Nom (Lower resp) Few respiratory linus present. [facility] Bacteria identified Aer cx Nom (Lower resp) Rare Pseudomonas aeruginosa Abnormal [facility] Nursing Noteon 01-22-2025 Nursing Note Report called to Marisela at [facility]. Belongings packed and sent with patient, including eye glasses. Patient states dentures were already at [facility], she did not have them during hospitalization. Normal [facility] Progress Noteon 01-22-[address] [facility] Progress Note [facility] Progress Note Normal [facility] Progress Note Normal [facility] [id number] 01-21-2025 [id number] Normal [facility] Progress Noteon 01-21-[address] [facility] Progress Note Normal [facility] Progress Note Normal [facility] Progress Note Normal [facility] [id number] 01-20-2025 [id number] Normal [facility] Progress Noteon 01-20-[address] [facility] Progress Note Normal [facility] Progress Note Normal [facility] [id number] 01-19-2025 [id number] Normal [facility] BASIC METABOLIC PANELon 110 Anion gap [Moles/Vol] 9 mmol/L Normal 3-13 [facility] Comment on above: Performed By: #### L AB15 ####Process Safety Engineer: HANS PAULSON ([id number])[facility] Calcium [Mass/Vol] 8.5 mg/dL Low 8.8-10.0 [facility] Comment on above: Performed By: #### L AB15 ####Process Safety Engineer: HANS PAULSON ([id number])[facility] ([facility])[address] Chloride [Moles/Vol] 101 mmol/L Normal 98-107 [facility] Comment on above: Performed By: #### L AB15 ####Process Safety Engineer: HANS PAULSON ([id number])[facility] ([facility])[address] CO2 [Moles/Vol] 32 mmol/L High 23-31 [facility] Comment on above: Performed By: #### L AB15 ####Process Safety Engineer: HANS PAULSON ([id number])[facility] ([facility])[address] Creatinine [Mass/Vol] 0.58 mg/dL Normal 0.58-1.12 [facility] Comment on above: Performed By: #### L AB15 ####Process Safety Engineer: HANS PAULSON ([id number])[facility])[address] [place] [address] GLOMERULAR FILTRATION RATE ML/MIN/1.73 SQ M.PREDICTED >90.0 Normal >60.0 [facility] Comment on above: Result Comment: Calc ulation based on the Chronic Kidney Disease Epidemiology Collaboration (CKD-EPI) equation refit without adjustment for race Performed By: #### L AB15 ####Process Safety Engineer: HANS PAULSON ([id number])[facility] [place] [address] Glucose [Mass/Vol] 136 mg/dL High 82-115 [facility] Comment on above: Performed By: #### L AB15 ####Process Safety Engineer: HANS PAULSON ([id number])[facility])[address] Potassium [Moles/Vol] 3.9 mmol/L Normal 3.5-5.1 [facility] Comment on above: Result Comment: [facility] potassium values may be up to 0.5 mmol/L lower than serum values. Performed By: #### L AB15 ####Process Safety Engineer: HANS PAULSON ([id number])[facility])[address] [place] [address] [place] Sodium [Moles/Vol] 142 mmol/L Normal 136-145 [facility] Comment on above: Performed By: #### L AB15 ####Process Safety Engineer: HANS PAULSON ([id number])[facility] ([facility])[address] Urea nitrogen [Mass/Vol] 20 mg/dL Normal 9-23 [facility] Comment on above: Performed By: #### L AB15 ####Process Safety Engineer: HANS PAULSON ([id number])[facility] ([facility])[address] Basic metabolic 1998 panelon 01-19-2025 Anion gap [Moles/Vol] 9 mmol/L 3 - 13 mmol/L [facility] Calcium [Mass/Vol] 8.5 mg/dL Low 8.8 - 10. 0 mg/dL [facility] Chloride [Moles/Vol] 101 mmol/L 98 - 10 7 mmol/L [facility] CO2 [Moles/Vol] 32 mmol/L High 23 - 31 mmol/L [facility] Creatinine [Mass/Vol] 0.58 mg/dL 0.58 - 1.12 mg/dL [facility] GFR/1.73 sq M.predicted (S/P/Bld) [Vol rate/Area] - PINF [facility] Comment on above: Calculation based on the Chronic Kidney Disease Epidemiology Collaboration (CKD-EPI) equation refit without adjustment for race Glucose [Mass/Vol] 136 mg/dL High 82 - 115 mg/dL [facility] Interpretation and review of laboratory results Abnormal [facility] Potassium [Moles/Vol] 3.9 mmol/L 3.5 - 5.1 mmol/L [facility] Comment on above: Plasma potassium martín ues may be up to 0.5 mmol/L lower than serum values. Sodium [Moles/Vol] 142 mmol/L 136 - 145 mmol/L [facility] Urea nitrogen [Mass/Vol] 20 mg/dL 9 - 23 mg/d L [facility] CBC W Auto Differential pane l (Bld)Ordered By: Crystal Dupont on 01-19-2025 Basophils (Bld) [#/Vol] 0 10*3/uL 0.0 - 0.2 10*3/uL [facility] Basophils/100 WBC (Bld) 0.2 % 0.0 - 2.0 % [facility] Eosinophils (Bld) [#/Vol] 0.2 10*3/uL 0.0 - 0.5 10*3/uL [facility] Eosinophils/100 WBC (Bld) 2.1 % 0.0 - 6.0 % [facility] Erythrocyte distribution width (RBC) [Ratio] 14 % 11.5 - 15.0 % [facility] Hematocrit (Bld) [Volume fraction] 36.5 % 35.0 - 47.0 % [facility] Hemoglobin (Bld) [Mass/Vol] 11 g/dL Low 11.7 - 16.0 g/dL [facility] Immature granulocytes (Bld) [#/Vol] 0 10*3/uL NINF - 0.1 10*3/uL [facility] Immature granulocytes/100 WBC (Bld) 0.4 % 0.0 - 2.0 % [facility] Interpretation and review of laboratory results Abnormal [facility] Lymphocytes (Bld) [#/Vol] 1.3 10*3/uL 1.0 - 4.3 10*3/uL [facility] Lymphocytes/100 WBC (Bld) 16.1 % 15.0 - 45.0 % [facility] MCH (RBC) [Entitic mass] 28.7 pg 26. 0 - 34.0 pg [facility] MCHC (RBC) [Mass/Vol] 30.1 % Low 30.5 - 36.0 % [facility] MCV (RBC) [Entitic vol] 95.3 fL 77.0 - 99.0 fL [facility] Monocytes (Bld) [#/Vol] 0.7 10*3/uL 0.0 - 0.9 10*3/uL [facility] Monocytes/100 WBC (Bld) 8.1 % 5.0 - 13.0 % [facility] Neutrophils (Bld) [#/Vol] 6.1 10*3/uL 1.8 - 7.5 10*3/uL [facility] Neutrophils/100 WBC (Bld) 73.1 % 38.0 - 82.0 % [facility] Nucleated RBC/100 WBC (Bld) [Ratio] 0 % [facility] Platelet mean volume (Bld) [Entitic vol] 9.6 fL 9.0 - 12.7 fL [facility] Platelets (Bld) [#/Vol] 252 10*3/uL 140 - 440 10*3/uL [facility] RBC (Bld) [#/Vol] 3.83 10*6/uL 3.80 - 5.2 0 10*6/uL [facility] WBC (Bld) [#/Vol] 8.3 10*3/uL 3.6 - 10.7 10*3/uL [facility] CBC WITH AUTO DIFFERENTIALon 01-19-2025 Basophils (Bld) [#/Vol] 0.0 10*3/uL Normal 0.0-0.2 [facility] Comment on above: Performed By: #### L [id number] ####Process Safety Engineer: HANS PAULSON ([id number])[facility] ([facility])[address] [place] [address] Basophils/100 WBC (Bld) 0.2 % Normal 0.0-2.0 [facility] Comment on above: Performed By: #### L [id number] ####Process Safety Engineer: HANS PAULSON ([id number])[facility] ([facility])[address] [place] [address] [place] Eosinophils (Bld) [#/Vol] 0.2 10*3/uL Normal 0.0-0.5 [facility] Comment on above: Performed By: #### L [id number] ####Process Safety Engineer: HANS PAULSON ([id number])[facility] ([facility])[address] [place] [address] Eosinophils/100 WBC (Bld) 2.1 % Normal 0.0-6.0 [facility] Comment on above: Performed By: #### L [id number] ####Process Safety Engineer: HANS PAULSON ([id number])[facility] ([facility])[address] [place] [address] Erythrocyte distribution width (RBC) [Ratio] 14.0 % Normal 11.5-15.0 [facility] Comment on above: Performed By: #### L [id number] ####Process Safety Engineer: HANS PAULSON ([id number])[facility] [place] ([facility])[address] [place] [address] Hematocrit (Bld) [Volume fraction] 36.5 % Normal 35.0-47.0 [facility] Comment on above: Performed By: #### L [id number] ####Process Safety Engineer: HANS LORENE ([id number])[facility] ([facility])[address] [place] [address] Hemoglobin (Bld) [Mass/Vol] 11.0 g/dL Low 11.7-16.0 [facility] Comment on above: Performed By: #### L [id number] ####Process Safety Engineer: HANS PAULSON ([id number])[facility] (SBAB)[address] [place] [address] IMMATURE GRANS % 0.4 % Normal 0.0-2.0 [facility] Comment on above: Performed By: #### L [id number] ####Process Safety Engineer: HANS LORENE ([phone])[facility] [place] [address] IMMATURE GRANS ABSOLUTE 0.0 10*3/uL Normal <0.1 [facility] Comment on above: Performed By: #### L [id number] ####Process Safety Engineer: HANS ALCANTARESCOBAR ([id number])[facility] (SBAB)[address] [place] [address] Lymphocytes (Bld) [#/Vol] 1.3 10*3/uL Normal 1.0-4.3 [facility] Comment on above: Performed By: #### L [id number] ####Process Safety Engineer: HANS WALDROPIVELISSE ([id number])[facility] (SBAB)[address] Lymphocytes/100 WBC (Bld) 16.1 % Normal 15.0-45.0 [facility] Comment on above: Performed By: #### L [id number] ####Process Safety Engineer: HANS PAULSON ([id number])[place] (SBHLAB)[address] MCH (RBC) [Entitic mass] 28.7 pg Normal 26.0-34.0 [facility] Comment on above: Performed By: #### L [id number] ####Process Safety Engineer: HANS PAULSON ([id number])[facility]ITAL[facility] (SBHLAB)[address] MCHC 30.1 % Low 30.5-36.0 [facility] Comment on above: Performed By: #### L [id number] ####Process Safety Engineer: HANS PAULSON ([id number])[facility]ITAL[facility] [place] (SBHLAB)[address] [place] [address] MCV (RBC) [Entitic vol] 95.3 fL Normal 77.0-99.0 [facility] Comment on above: Performed By: #### L [id number] ####Process Safety Engineer: HANS PAULSON ([id number])[facility]ITAL[facility] (SBHLAB)[address] [place] [address] Monocytes (Bld) [#/Vol] 0.7 10*3/uL Normal 0.0-0.9 [facility] Comment on above: Performed By: #### L [id number] ####Process Safety Engineer: HANS PAULSON ([id number])[place] (SBHLAB)[address] [place] [address] Monocytes/100 WBC (Bld) 8.1 % Normal 5.0-13.0 [facility] Comment on above: Performed By: #### L [id number] ####Process Safety Engineer: HANS PAULSON ([id number])[facility]ITAL[facility] (SBHLAB)[address] NEUTROPHILS ABSOLUTE 6.1 10*3/uL Normal 1.8-7.5 [facility] Comment on above: Performed By: #### L [id number] ####Process Safety Engineer: HANS ALCANTARESCOBAR ([id number])[facility]ITAL[facility] (SBHLAB)[address] Neutrophils/100 WBC (Bld) 73.1 % Normal 38.0-82.0 [facility] Comment on above: Performed By: #### L [id number] ####Process Safety Engineer: HANS LORENE ([id number])[facility]ITAL[facility] (SBHLAB)[address] NRBC 0.0 /100 WBCs Normal 0.0-2.0 [facility] Comment on above: Performed By: #### L [id number] ####Process Safety Engineer: HANS LORENE ([id number])[facility]ITAL[facility] [place] (SBHLAB)[address] Platelet mean volume (Bld) [Entitic vol] 9.6 fL Normal 9.0-12.7 [facility] Comment on above: Performed By: #### L [id number] ####Process Safety Engineer: HANS LORENE ([id number])[facility]ITAL[facility] (SBHLAB)[address] [place] [address] [place] Platelets (Bld) [#/Vol] 252 10*3/uL Normal 140-440 [facility] Comment on above: Performed By: #### L [id number] ####Process Safety Engineer: HANS ALCANTARESCOBAR ([id number])[facility] (SBHLAB)[address] [place] [address] [place] RBC (Bld) [#/Vol] 3.83 10*6/uL Normal 3.80-5.20 [facility] Comment on above: Performed By: #### L [id number] ####Process Safety Engineer: HANS ALCANTARESCOBAR ([id number])[facility] (SBHLAB)[address] [place] [address] [place] WBC (Bld) [#/Vol] 8.3 10*3/uL Normal 3.6-10.7 [facility] Comment on above: Performed By: #### L [id number] ####Process Safety Engineer: HANS PAULSON ([id number])[place] (SBHLAB)[address] Progress Noteon 01-19-2025 Progress Note Normal [facility] Progress Note Normal [facility] BASIC METABOLIC PANELon 10-3 Anion gap [Moles/Vol] 3 mmol/L Normal 3-13 [facility] Comment on above: Performed By: #### L [id number], [id number] ####Process Safety Engineer: HANS PAULSON ([id number])[facility]ITALNorma [place] (SBHLAB)[address] Calcium [Mass/Vol] 6.7 mg/dL Low 8.8-10.0 [facility] Comment on above: Performed By: #### L AB15, [id number] ####Process Safety Engineer: HANS PAULSON ([id number])[facility]ITALA [place] (SBHLAB)[address] Chloride [Moles/Vol] 111 mmol/L High 98-107 [facility] Comment on above: Performed By: #### L AB15, [id number] ####Process Safety Engineer: HANS PAULSON ([id number])[facility] [place] (SBHLAB)[address] CO2 [Moles/Vol] 29 mmol/L Normal 23-31 [facility] Comment on above: Performed By: #### L AB15, [id number] ####Process Safety Engineer: HANS PAULSON ([id number])[facility] [place] (SBHLAB)[address] Creatinine [Mass/Vol] 0.45 mg/dL Low 0.58-1.12 [facility] Comment on above: Performed By: #### L [id number], [id number] ####Process Safety Engineer: HANS PAULSON ([id number])[facility]A [place] (SBHLAB)[address] [place] [address] [place] GLOMERULAR FILTRATION RATE ML/MIN/1.73 SQ M.PREDICTED >90.0 Normal >60.0 [facility] Comment on above: Result Comment: Calc ulation based on the Chronic Kidney Disease Epidemiology Collaboration (CKD-EPI) equation refit without adjustment for race Performed By: #### L AB15, [id number] ####Process Safety Engineer: HANS PAULSON ([id number])[facility]ITALNorm[facility] (SBHLAB)[address] Glucose [Mass/Vol] 85 mg/dL Normal 82-115 [facility] Comment on above: Performed By: #### L AB15, [id number] ####Process Safety Engineer: HANS PAULSON ([id number])[facility] CENTERRaimundo (SBHLAB)[address] Potassium [Moles/Vol] 3.1 mmol/L Low 3.5-5.1 [facility] Comment on above: Result Comment: [facility] potassium values may be up to 0.5 mmol/L lower than serum values. Performed By: #### L AB15, [id number] ####Process Safety Engineer: HANS PAULSON ([id number])[facility] [place] (SBHLAB)[address] Sodium [Moles/Vol] 143 mmol/L Normal 136-145 [facility] Comment on above: Performed By: #### L AB15, [id number] ####Process Safety Engineer: HANS PAULSON ([id number])[facility] (SBHLAB)[address] Urea nitrogen [Mass/Vol] 17 mg/dL Normal 9-23 [facility] Comment on above: Performed By: #### L AB15, [id number] ####Process Safety Engineer: HANS PAULSON ([id number])[facility] (SBHLAB)[address] Basic metabolic 1998 panelon 01-18-2025 Anion gap [Moles/Vol] 3 mmol/L 3 - 13 mmol/L [facility] Calcium [Mass/Vol] 6.7 mg/dL Low 8.8 - 10. 0 mg/dL [facility] Chloride [Moles/Vol] 111 mmol/L High 98 - 10 7 mmol/L [facility] CO2 [Moles/Vol] 29 mmol/L 23 - 31 mmol/L [facility] Creatinine [Mass/Vol] 0.45 mg/dL Low 0.58 - 1.12 mg/dL [facility] GFR/1.73 sq M.predicted (S/P/Bld) [Vol rate/Area] - PINF [facility] Comment on above: Calculation based on the Chronic Kidney Disease Epidemiology Collaboration (CKD-EPI) equation refit without adjustment for race Glucose [Mass/Vol] 85 mg/dL 82 - 115 mg/dL [facility] Interpretation and review of laboratory results Abnormal [facility] Potassium [Moles/Vol] 3.1 mmol/L Low 3.5 - 5.1 mmol/L [facility] Comment on above: Plasma potassium martín ues may be up to 0.5 mmol/L lower than serum values. Sodium [Moles/Vol] 143 mmol/L 136 - 145 mmol/L [facility] Urea nitrogen [Mass/Vol] 17 mg/dL 9 - 23 mg/d L [facility] CBC W Auto Differential pane l (Bld)on 01-18-2025 Basophils (Bld) [#/Vol] 0 10*3/uL 0.0 - 0.2 10*3/uL [facility] Basophils/100 WBC (Bld) 0.2 % 0.0 - 2.0 % [facility] Eosinophils (Bld) [#/Vol] 0.4 10*3/uL 0.0 - 0.5 10*3/uL [facility] Eosinophils/100 WBC (Bld) 4.3 % 0.0 - 6.0 % [facility] Erythrocyte distribution width (RBC) [Ratio] 13.8 % 11.5 - 15.0 % [facility] Hematocrit (Bld) [Volume fraction] 37.5 % 35.0 - 47.0 % [facility] Hemoglobin (Bld) [Mass/Vol] 11.5 g/dL Low 11.7 - 16.0 g/dL [facility] Immature granulocytes (Bld) [#/Vol] 0 10*3/uL NINF - 0.1 10*3/uL [facility] Immature granulocytes/100 WBC (Bld) 0.2 % 0.0 - 2.0 % [facility] Interpretation and review of laboratory results Abnormal [facility] Lymphocytes (Bld) [#/Vol] 1.6 10*3/uL 1.0 - 4.3 10*3/uL [facility] Lymphocytes/100 WBC (Bld) 19.5 % 15.0 - 45.0 % [facility] MCH (RBC) [Entitic mass] 29.2 pg 26. 0 - 34.0 pg [facility] MCHC (RBC) [Mass/Vol] 30.7 % 30.5 - 36.0 % [facility] MCV (RBC) [Entitic vol] 95.2 fL 77.0 - 99.0 fL [facility] Monocytes (Bld) [#/Vol] 0.7 10*3/uL 0.0 - 0.9 10*3/uL [facility] Monocytes/100 WBC (Bld) 8.4 % 5.0 - 13.0 % [facility] Neutrophils (Bld) [#/Vol] 5.5 10*3/uL 1.8 - 7.5 10*3/uL [facility] Neutrophils/100 WBC (Bld) 67.4 % 38.0 - 82.0 % [facility] Nucleated RBC/100 WBC (Bld) [Ratio] 0 % [facility] demandmart Platelet mean volume (Bld) [Entitic vol] 9.5 fL 9.0 - 12.7 fL [facility] Platelets (Bld) [#/Vol] 252 10*3/uL 140 - 440 10*3/uL [facility] RBC (Bld) [#/Vol] 3.94 10*6/uL 3.80 - 5.2 0 10*6/uL [facility] WBC (Bld) [#/Vol] 8.1 10*3/uL 3.6 - 10.7 10*3/uL [facility] CBC WITH AUTO DIFFERENTIALon 01-18-2025 Basophils (Bld) [#/Vol] 0.0 10*3/uL Normal 0.0-0.2 [facility] Comment on above: Performed By: #### L [id number] ####Process Safety Engineer: HANS PAULSON ([id number])[facility] (SBHLAB)[address] [place] [address] Basophils/100 WBC (Bld) 0.2 % Normal 0.0-2.0 [facility] Comment on above: Performed By: #### L [id number] ####Process Safety Engineer: HANS PAULSON ([id number])[facility] [place] (SBHLAB)[address] Eosinophils (Bld) [#/Vol] 0.4 10*3/uL Normal 0.0-0.5 [facility] Comment on above: Performed By: #### L [id number] ####Process Safety Engineer: HANS PAULSON ([id number])[facility] [place] (SBHLAB)[address] Eosinophils/100 WBC (Bld) 4.3 % Normal 0.0-6.0 [facility] Comment on above: Performed By: #### L [id number] ####Process Safety Engineer: HANS PAULSON ([id number])[facility] [place] (SBHLAB)[address] Erythrocyte distribution width (RBC) [Ratio] 13.8 % Normal 11.5-15.0 [facility] Comment on above: Performed By: #### L [id number] ####Process Safety Engineer: HANS PAULSON ([id number])[facility] [place] (SBHLAB)[address] [place] [address] Hematocrit (Bld) [Volume fraction] 37.5 % Normal 35.0-47.0 [facility] Comment on above: Performed By: #### L [id number] ####Process Safety Engineer: HANS PAULSON ([id number])[facility] [place] (SBHLAB)[address] Hemoglobin (Bld) [Mass/Vol] 11.5 g/dL Low 11.7-16.0 [facility] Comment on above: Performed By: #### L [id number] ####Process Safety Engineer: HANS PAULSON ([id number])[facility] [place] (SBHLAB)[address] IMMATURE GRANS % 0.2 % Normal 0.0-2.0 [facility] Comment on above: Performed By: #### L [id number] ####Process Safety Engineer: HANS PAULSON ([id number])[facility] (SBHLAB)[address] IMMATURE GRANS ABSOLUTE 0.0 10*3/uL Normal <0.1 [facility] Comment on above: Performed By: #### L [id number] ####Process Safety Engineer: HANS PAULSON ([id number])[facility] (SBHLAB)[address] Lymphocytes (Bld) [#/Vol] 1.6 10*3/uL Normal 1.0-4.3 [facility] Comment on above: Performed By: #### L [id number] ####Process Safety Engineer: HANS PAULSON ([id number])[facility] (SBHLAB)[address] Lymphocytes/100 WBC (Bld) 19.5 % Normal 15.0-45.0 [facility] Comment on above: Performed By: #### L [id number] ####Process Safety Engineer: HANS PAULSON ([id number])[facility] (SBHLAB)[address] MCH (RBC) [Entitic mass] 29.2 pg Normal 26.0-34.0 [facility] Comment on above: Performed By: #### L [id number] ####Process Safety Engineer: HANS PAULSON ([id number])[facility] (SBHLAB)[address] MCHC 30.7 % Normal 30.5-36.0 [facility] Comment on above: Performed By: #### L [id number] ####Process Safety Engineer: HANS PAULSON ([id number])[facility] (SBHLAB)[address] [place] [address] [place] MCV (RBC) [Entitic vol] 95.2 fL Normal 77.0-99.0 [facility] Comment on above: Performed By: #### L [id number] ####Process Safety Engineer: HANS PAULSON ([id number])[facility] [place] (SBHLAB)[address] Monocytes (Bld) [#/Vol] 0.7 10*3/uL Normal 0.0-0.9 [facility] Comment on above: Performed By: #### L [id number] ####Process Safety Engineer: HANS PAULSON ([id number])[facility] [place] (SBHLAB)[address] Monocytes/100 WBC (Bld) 8.4 % Normal 5.0-13.0 [facility] Comment on above: Performed By: #### L [id number] ####Process Safety Engineer: HANS PAULSON ([id number])[facility] [place] (SBHLAB)[address] NEUTROPHILS ABSOLUTE 5.5 10*3/uL Normal 1.8-7.5 [facility] Comment on above: Performed By: #### L [id number] ####Process Safety Engineer: HANS PAULSON ([id number])[facility] [place] (SBHLAB)[address] Neutrophils/100 WBC (Bld) 67.4 % Normal 38.0-82.0 [facility] Comment on above: Performed By: #### L [id number] ####Process Safety Engineer: HANS PAULSON ([id number])[facility] [place] (SBHLAB)[address] [place] [address] [place] NRBC 0.0 /100 WBCs Normal 0.0-2.0 [facility] Comment on above: Performed By: #### L [id number] ####Process Safety Engineer: HANS PAULSON ([id number])[facility] [place] (SBHLAB)[address] [place] [address] [place] Platelet mean volume (Bld) [Entitic vol] 9.5 fL Normal 9.0-12.7 [facility] Comment on above: Performed By: #### L [id number] ####Process Safety Engineer: HANS PAULSON ([id number])[facility] [place] (SBHLAB)[address] Platelets (Bld) [#/Vol] 252 10*3/uL Normal 140-440 [facility] Comment on above: Performed By: #### L [id number] ####Process Safety Engineer: HANS PAULSON ([id number])[facility]ITALNorma [facility] (SBHLAB)[address] RBC (Bld) [#/Vol] 3.94 10*6/uL Normal 3.80-5.20 [facility] Comment on above: Performed By: #### L [id number] ####Process Safety Engineer: HANS PAULSON ([id number])[facility] [place] (SBHLAB)[address] WBC (Bld) [#/Vol] 8.1 10*3/uL Normal 3.6-10.7 [facility] Comment on above: Performed By: #### L [id number] ####Process Safety Engineer: HANS PAULSON ([id number])[facility]ITAL[facility] [place] (SBHLAB)[address] Laboratory - Chemistry and C hemistry - challengeon 01-18-2025 Magnesium [Mass/Vol] 1.4 mg/dL Low 1.6 - 2 .6 mg/dL [facility] MAGNESIUMon 01-18-2025 Magnesium [Mass/Vol] 1.4 mg/dL Low 1.6-2.6 [facility] Comment on above: Result Comment: KYM Gilmore COMMENTS:Higher values can be expected in females during menses. Performed By: #### L AB15, [id number] ####Process Safety Engineer: HANS PAULSON ([id number])[facility]ITALNorma [facility] (SBHLAB)[address] Magnesium [Mass/Vol]on 01-18 Interpretation and review of laboratory results Abnormal [facility] Higher values can be expected in females during menses. [facility] Progress Noteon 01-18-2025 Progress Note Normal [facility] Progress Note Normal [facility] Progress Note Normal [facility] [id number] 01-17-2025 [id number] Normal [facility] [id number] Normal [facility] BASIC METABOLIC PANELon 12-21 Anion gap [Moles/Vol] 5 mmol/L Normal 3-13 [facility] Comment on above: Performed By: #### L [id number], [id number] ####Process Safety Engineer: HANS PAULSON ([id number])[facility] [place] (SBHLAB)[address] Calcium [Mass/Vol] 8.1 mg/dL Low 8.8-10.0 [facility] Comment on above: Performed By: #### L AB15, [id number] ####Process Safety Engineer: HANS PAULSON ([id number])[facility] [place] (SBHLAB)[address] [place] [address] [place] Chloride [Moles/Vol] 99 mmol/L Normal 98-107 [facility] Comment on above: Performed By: #### L AB15, [id number] ####Process Safety Engineer: HANS PAULSON ([id number])[facility] [place] (SBHLAB)[address] [place] [address] [place] CO2 [Moles/Vol] 37 mmol/L High 23-31 [facility] Comment on above: Performed By: #### L AB15, [id number] ####Process Safety Engineer: HANS PAULSON ([id number])[facility] [place] (SBHLAB)[address] [place] [address] [place] Creatinine [Mass/Vol] 0.44 mg/dL Low 0.58-1.12 [facility] Comment on above: Performed By: #### L AB15, [id number] ####Process Safety Engineer: HANS PAULSON ([id number])[facility] (SBHLAB)[address] GLOMERULAR FILTRATION RATE ML/MIN/1.73 SQ M.PREDICTED >90.0 Normal >60.0 [facility] Comment on above: Result Comment: Calc ulation based on the Chronic Kidney Disease Epidemiology Collaboration (CKD-EPI) equation refit without adjustment for race Performed By: #### L AB15, [id number] ####Process Safety Engineer: HANS PAULSON ([id number])[facility] (SBHLAB)[address] Glucose [Mass/Vol] 102 mg/dL Normal 82-115 [facility] Comment on above: Performed By: #### L AB15, [id number] ####Process Safety Engineer: HANS PAULSON ([id number])[facility] Potassium [Moles/Vol] 3.3 mmol/L Low 3.5-5.1 [facility] Comment on above: Result Comment: [facility] potassium values may be up to 0.5 mmol/L lower than serum values. Performed By: #### L AB15, [id number] ####Process Safety Engineer: HANS PAULSON ([id number])[facility] (HLAB)[address] Sodium [Moles/Vol] 141 mmol/L Normal 136-145 [facility] Comment on above: Performed By: #### L AB15, [id number] ####Process Safety Engineer: HANS PAULSON ([id number])[facility] (SBHLAB)[address] [place] [address] [place] Urea nitrogen [Mass/Vol] 16 mg/dL Normal 9-23 [facility] Comment on above: Performed By: #### L AB15, [id number] ####Process Safety Engineer: HANS PAULSON ([id number])[facility] (SBHLAB)[address] Bacteria identified Cx Nom ( Bld)on 01-17-2025 Interpretation and review of laboratory results Normal [facility] Blood Collection Sit e: Right Arm [facility] Blood Collection Sit e: Left Arm [facility] Basic metabolic 1998 panelon 01-17-2025 Anion gap [Moles/Vol] 5 mmol/L 3 - 13 mmol/L [facility] Calcium [Mass/Vol] 8.1 mg/dL Low 8.8 - 10. 0 mg/dL [facility] Chloride [Moles/Vol] 99 mmol/L 98 - 10 7 mmol/L [facility] CO2 [Moles/Vol] 37 mmol/L High 23 - 31 mmol/L [facility] Creatinine [Mass/Vol] 0.44 mg/dL Low 0.58 - 1.12 mg/dL [facility] GFR/1.73 sq M.predicted (S/P/Bld) [Vol rate/Area] - PINF [facility] Comment on above: Calculation based on the Chronic Kidney Disease Epidemiology Collaboration (CKD-EPI) equation refit without adjustment for race Glucose [Mass/Vol] 102 mg/dL 82 - 115 mg/dL [facility] Interpretation and review of laboratory results Abnormal [facility] Potassium [Moles/Vol] 3.3 mmol/L Low 3.5 - 5.1 mmol/L [facility] Comment on above: Plasma potassium martín ues may be up to 0.5 mmol/L lower than serum values. Sodium [Moles/Vol] 141 mmol/L 136 - 145 mmol/L [facility] Urea nitrogen [Mass/Vol] 16 mg/dL 9 - 23 mg/d L [facility] CBC W Auto Differential pane l (Bld)on 01-17-2025 Basophils (Bld) [#/Vol] 0 10*3/uL 0.0 - 0.2 10*3/uL [facility] Basophils/100 WBC (Bld) 0.3 % 0.0 - 2.0 % [facility] Eosinophils (Bld) [#/Vol] 0.1 10*3/uL 0.0 - 0.5 10*3/uL [facility] Eosinophils/100 WBC (Bld) 2 % 0.0 - 6.0 % [facility] Erythrocyte distribution width (RBC) [Ratio] 13.7 % 11.5 - 15.0 % [facility] Hematocrit (Bld) [Volume fraction] 35.7 % 35.0 - 47.0 % [facility] Hemoglobin (Bld) [Mass/Vol] 11 g/dL Low 11.7 - 16.0 g/dL [facility] Immature granulocytes (Bld) [#/Vol] 0 10*3/uL NINF - 0.1 10*3/uL [facility] Immature granulocytes/100 WBC (Bld) 0.1 % 0.0 - 2.0 % [facility] Interpretation and review of laboratory results Abnormal [facility] Lymphocytes (Bld) [#/Vol] 1.5 10*3/uL 1.0 - 4.3 10*3/uL [facility] Lymphocytes/100 WBC (Bld) 20.5 % 15.0 - 45.0 % [facility] MCH (RBC) [Entitic mass] 29.2 pg 26. 0 - 34.0 pg [facility] MCHC (RBC) [Mass/Vol] 30.8 % 30.5 - 36.0 % [facility] MCV (RBC) [Entitic vol] 94.7 fL 77.0 - 99.0 fL [facility] Monocytes (Bld) [#/Vol] 0.7 10*3/uL 0.0 - 0.9 10*3/uL [facility] Monocytes/100 WBC (Bld) 9.4 % 5.0 - 13.0 % [facility] Neutrophils (Bld) [#/Vol] 4.8 10*3/uL 1.8 - 7.5 10*3/uL [facility] Neutrophils/100 WBC (Bld) 67.7 % 38.0 - 82.0 % [facility] Nucleated RBC/100 WBC (Bld) [Ratio] 0 % [facility] Platelet mean volume (Bld) [Entitic vol] 9.5 fL 9.0 - 12.7 fL [facility] Platelets (Bld) [#/Vol] 205 10*3/uL 140 - 440 10*3/uL [facility] RBC (Bld) [#/Vol] 3.77 10*6/uL Low 3.80 - 5.2 0 10*6/uL [facility] WBC (Bld) [#/Vol] 7.1 10*3/uL 3.6 - 10.7 10*3/uL [facility] CBC WITH AUTO DIFFERENTIALon 01-17-2025 Basophils (Bld) [#/Vol] 0.0 10*3/uL Normal 0.0-0.2 [facility] Comment on above: Performed By: #### [id number] ####Process Safety Engineer: HANS ALCANTARESCOBAR ([id number])[facility] [place] (SBHLAB)[address] Basophils/100 WBC (Bld) 0.3 % Normal 0.0-2.0 [facility] Comment on above: Performed By: #### L [id number] ####Process Safety Engineer: HANS ALCANTARESCOBAR ([id number])[facility] (SBHLAB)[address] Eosinophils (Bld) [#/Vol] 0.1 10*3/uL Normal 0.0-0.5 [facility] Comment on above: Performed By: #### L [id number] ####Process Safety Engineer: HANS PAULSON ([id number])[facility] (SBHLAB)[address] Eosinophils/100 WBC (Bld) 2.0 % Normal 0.0-6.0 [facility] Comment on above: Performed By: #### L [id number] ####Process Safety Engineer: HANS ALCANTARESCOBAR ([id number])[facility] (SBHLAB)[address] Erythrocyte distribution width (RBC) [Ratio] 13.7 % Normal 11.5-15.0 [facility] Comment on above: Performed By: #### L [id number] ####Process Safety Engineer: HANS ALCANTARESCOBAR ([id number])[facility] (SBHLAB)[address] Hematocrit (Bld) [Volume fraction] 35.7 % Normal 35.0-47.0 [facility] Comment on above: Performed By: #### L [id number] ####Process Safety Engineer: HANS PAULSON ([id number])[facility] [place] (SB[facility])[address] Hemoglobin (Bld) [Mass/Vol] 11.0 g/dL Low 11.7-16.0 [facility] Comment on above: Performed By: #### L [id number] ####Process Safety Engineer: HANS PAULSON ([id number])[facility] [place] (SBHLAB)[address] IMMATURE GRANS % 0.1 % Normal 0.0-2.0 [facility] Comment on above: Performed By: #### L [id number] ####Process Safety Engineer: HANS PAULSON ([id number])[facility] ([facility])[address] IMMATURE GRANS ABSOLUTE 0.0 10*3/uL Normal <0.1 [facility] Comment on above: Performed By: #### L [id number] ####Process Safety Engineer: HANS PAULSON ([id number])[facility] (SBAB)[address] Lymphocytes (Bld) [#/Vol] 1.5 10*3/uL Normal 1.0-4.3 [facility] Comment on above: Performed By: #### L [id number] ####Process Safety Engineer: HANS PAULSON ([id number])[facility] (SBHLAB)[address] Lymphocytes/100 WBC (Bld) 20.5 % Normal 15.0-45.0 [facility] Comment on above: Performed By: #### L [id number] ####Process Safety Engineer: HANS PAULSON ([id number])[facility] (SBHLAB)[address] MCH (RBC) [Entitic mass] 29.2 pg Normal 26.0-34.0 [facility] Comment on above: Performed By: #### L [id number] ####Process Safety Engineer: HANS PAULSON ([id number])[facility] ([facility])[address] MCHC 30.8 % Normal 30.5-36.0 [facility] Comment on above: Performed By: #### L [id number] ####Process Safety Engineer: HANS ALCANTARESCOBAR ([id number])[facility] (SBHLAB)[address] MCV (RBC) [Entitic vol] 94.7 fL Normal 77.0-99.0 [facility] Comment on above: Performed By: #### L [id number] ####Process Safety Engineer: HANS ALCANTARESCOBAR ([id number])[facility] (SBHLAB)[address] Monocytes (Bld) [#/Vol] 0.7 10*3/uL Normal 0.0-0.9 [facility] Comment on above: Performed By: #### L [id number] ####Process Safety Engineer: HANS ALCANTARESCOBAR ([id number])[facility] (SBHLAB)[address] Monocytes/100 WBC (Bld) 9.4 % Normal 5.0-13.0 [facility] Comment on above: Performed By: #### L [id number] ####Process Safety Engineer: HANS ALCANTARESCOBAR ([id number])[facility] (SBHLAB)[address] NEUTROPHILS ABSOLUTE 4.8 10*3/uL Normal 1.8-7.5 [facility] Comment on above: Performed By: #### L [id number] ####Process Safety Engineer: HANS ALCANTARESCOBAR ([id number])[facility] (SBHLAB)155 [place] [address] [place] Neutrophils/100 WBC (Bld) 67.7 % Normal 38.0-82.0 [facility] Comment on above: Performed By: #### L [id number] ####Process Safety Engineer: HANS PAULSON ([id number])[facility] (SBHLAB)[address] NRBC 0.0 /100 WBCs Normal 0.0-2.0 [facility] Comment on above: Performed By: #### L [id number] ####Process Safety Engineer: HANS PAULSON ([id number])[facility]ITAL[facility] (SBHLAB)[address] Platelet mean volume (Bld) [Entitic vol] 9.5 fL Normal 9.0-12.7 [facility] Comment on above: Performed By: #### L [id number] ####Process Safety Engineer: HANS PAULSON ([id number])[facility] (SBHLAB)[address] Platelets (Bld) [#/Vol] 205 10*3/uL Normal 140-440 [facility] Comment on above: Performed By: #### L [id number] ####Process Safety Engineer: HANS PAULSON ([id number])[facility] (SBHLAB)[address] [place] [address] RBC (Bld) [#/Vol] 3.77 10*6/uL Low 3.80-5.20 [facility] Comment on above: Performed By: #### L [id number] ####Process Safety Engineer: HANS PAULSON ([id number])[facility] (SBHLAB)[address] [place] [address] WBC (Bld) [#/Vol] 7.1 10*3/uL Normal 3.6-10.7 [facility] Comment on above: Performed By: #### L [id number] ####Process Safety Engineer: HANS PAULSON ([id number])[facility] (SBHLAB)[address] [place] [address] Laboratory - Chemistry and C hemistry - challengeon 01-17-2025 Magnesium [Mass/Vol] 1.8 mg/dL 1.6 - 2 .6 mg/dL [facility] Laboratory - Microbiology an d Antimicrobial susceptibilityon 01-17-2025 Bacteria identified Cx Nom (Bld) No growth at 5 days [facility] MAGNESIUMon 01-17-2025 Magnesium [Mass/Vol] 1.8 mg/dL Normal 1.6-2.6 [facility] Comment on above: Result Comment: ORDE R COMMENTS:Higher values can be expected in females during menses. Performed By: #### L [id number], [id number] ####Process Safety Engineer: HANS PAULSON ([id number])[facility] HOSPITALR[facility] ([facility])[address] Magnesium [Mass/Vol]on 01-17 Interpretation and review of laboratory results Normal [facility] Higher values can be expected in females during menses. [facility] Progress Noteon 01-17-2025 Progress Note Normal [facility] Progress Note Normal [facility] Progress Note Normal [facility] 25-hydroxyvitamin D3 [Mass/V ol]on 01-16-2025 Interpretation and review of laboratory results Normal [facility] Target concentration : 30 - 40 ng/mL; toxicity seen at concentrations >100 ng/mL Less than 20 ng/mL: Indicative of Vit D deficiency Test performed by [employer], measuring Total Vitamin D, not individual fractions. [facility] [id number] 01-16-2025 [id number] Normal [facility] BASIC METABOLIC PANELon 12-20 Anion gap [Moles/Vol] 9 mmol/L Normal 3-13 [facility] Comment on above: Performed By: #### L [id number] ####Process Safety Engineer: HANS PAULSON ([id number])[facility] Calcium [Mass/Vol] 8.4 mg/dL Low 8.8-10.0 [facility] Comment on above: Performed By: #### L AB15 ####Process Safety Engineer: HANS PAULSON ([id number])[facility] ([facility])[address] Chloride [Moles/Vol] 100 mmol/L Normal 98-107 [facility] Comment on above: Performed By: #### L AB15 ####Process Safety Engineer: HANS PAULSON ([id number])[facility] (SBHLAB)[address] CO2 [Moles/Vol] 33 mmol/L High 23-31 [facility] Comment on above: Performed By: #### L AB15 ####Process Safety Engineer: HANS PAULSON ([id number])[facility]ITAL[facility] [place] (SBHLAB)[address] Creatinine [Mass/Vol] 0.52 mg/dL Low 0.58-1.12 [facility] Comment on above: Performed By: #### L AB15 ####Process Safety Engineer: HANS PAULSON ([id number])[facility]ITALNorma [place] (SBHLAB)[address] GLOMERULAR FILTRATION RATE ML/MIN/1.73 SQ M.PREDICTED >90.0 Normal >60.0 [facility] Comment on above: Result Comment: Calc ulation based on the Chronic Kidney Disease Epidemiology Collaboration (CKD-EPI) equation refit without adjustment for race Performed By: #### L AB15 ####Process Safety Engineer: HANS PAULSON ([id number])[facility] H[facility]ITALoNrma [facility]IL[facility] (SBHLAB)[address] Glucose [Mass/Vol] 90 mg/dL Normal 82-115 [facility] Comment on above: Performed By: #### L AB15 ####Process Safety Engineer: HANS PAULSON ([id number])[facility] [place] (SBHLAB)[address] Potassium [Moles/Vol] 3.7 mmol/L Normal 3.5-5.1 [facility] Comment on above: Result Comment: [facility] potassium values may be up to 0.5 mmol/L lower than serum values. Performed By: #### L AB15 ####Process Safety Engineer: HANS PAULSON ([id number])[facility]ITALNorm[facility] [place] (SBHLAB)[address] Sodium [Moles/Vol] 142 mmol/L Normal 136-145 [facility] Comment on above: Performed By: #### L AB15 ####Process Safety Engineer: HANS PUALSON ([id number])[facility]ENTERRaim[facility] (SBHLAB)[address] Urea nitrogen [Mass/Vol] 22 mg/dL Normal 9-23 [facility] Comment on above: Performed By: #### L AB15 ####Process Safety Engineer: HANS PAULSON ([id number])[facility] [place] (SBHLAB)[address] Basic metabolic 1998 panelon 01-16-2025 Anion gap [Moles/Vol] 9 mmol/L 3 - 13 mmol/L [facility] Calcium [Mass/Vol] 8.4 mg/dL Low 8.8 - 10. 0 mg/dL [facility] Chloride [Moles/Vol] 100 mmol/L 98 - 10 7 mmol/L [facility] CO2 [Moles/Vol] 33 mmol/L High 23 - 31 mmol/L [facility] Creatinine [Mass/Vol] 0.52 mg/dL Low 0.58 - 1.12 mg/dL [facility] GFR/1.73 sq M.predicted (S/P/Bld) [Vol rate/Area] - PINF [facility] Comment on above: Calculation based on the Chronic Kidney Disease Epidemiology Collaboration (CKD-EPI) equation refit without adjustment for race Glucose [Mass/Vol] 90 mg/dL 82 - 115 mg/dL [facility] Interpretation and review of laboratory results Abnormal [facility] Potassium [Moles/Vol] 3.7 mmol/L 3.5 - 5.1 mmol/L [facility] Comment on above: Plasma potassium martín ues may be up to 0.5 mmol/L lower than serum values. Sodium [Moles/Vol] 142 mmol/L 136 - 145 mmol/L [facility] Urea nitrogen [Mass/Vol] 22 mg/dL 9 - 23 mg/d L [facility] Consulton 01-16-2025 Consult Normal [facility] Laboratory - Chemistry and C hemistry - challengeon 01-16-2025 25-hydroxyvitamin D3 [Mass/Vol] 24 ng/mL 20 - 50 ng/mL [facility] Nursing Noteon 01-16-2025 Nursing Note Normal [facility] PNEUMONIA PCR PANELon 2024 PNEUMONIA PCR PANEL Normal [facility] Comment on above: Performed By: #### L [id number] ####Process Safety Engineer: AMELIE ELIZABETH ([id number])[facility] (SACLAB)[address] [place] [address] Progress Noteon 01-16-2025 Progress Note Normal [facility] Progress Note Normal [facility] RESPIRATORY CULTURE AND STAI Non 01-16-2025 RESPIRATORY CULTURE AND STAIN Normal [facility] Comment on above: Performed By: #### L [id number] ####Process Safety Engineer: AMELIE ELIZABETH ([id number])[facility] (SAC[facility])[address] [place] [address] Respiratory pathogens DNA an d RNA panel MILANA+non-probe (Lower resp)on 01-16-2025 Acinetobacter baumannii complex Not detected Not Detected [facility] Adenovirus Not detected Not Detected [facility] C. pneumoniae DNA MILANA+non-probe Ql (Lower resp) Not detected Not Detected [facility] Enterobacter cloacae complex Not detected Not Detected [facility] Escherichia coli Not detected Not Detected [facility] FLUAV RNA MILANA+non-probe Ql (Lower resp) Not detected Not Detected [facility] FLUBV RNA MILANA+non-probe Ql (Lower resp) Not detected Not Detected [facility] Haemophilus influenzae Not detected Not Detecte d [facility] Human Metapneumovirus Not detected Not Detected [facility] Human Rhinovirus/Enterovirus Not detected Not Detected [facility] lt Interpretation and review of laboratory results Abnormal [facility] Klebsiella (Enterobacter) aerogenes Not detected Not Detected [facility] ealth Klebsiella oxytoca Not detected Not Detected [facility] Klebsiella pneumoniae Not detected Not Detected [facility] L. pneumophila DNA MILANA+non-probe Ql (Lower resp) Not detected Not Detected [facility] Moraxella catarrhalis Not detected Not Detected [facility] Mycoplasma pneumoniae Not detected Not Detected [facility] Parainfluenza virus Not detected Not Detected [facility] Proteus spp Not detected Not Detected [facility] Pseudomonas aeruginosa Detected Abnormal Not Detected [facility] RSV RNA MILANA+probe Ql (Resp) Not detected Not Detected [facility] S. agalactiae DNA MILANA+non-probe Ql (Sput) Not detected Not Detected [facility] SARS-CoV-2 (COVID-19) RNA MILANA+non-probe Ql (Nph) Not detected Not Detected [facility] SARS-CoV-2 (COVID-19) RNA MILANA+probe Ql (Unsp spec) Methodology: Multiplex PCR This panel does not test for SARS-CoV-2 (Covid-19). The following antimicrobial resistance gene is reported if the appropriate organism is detected: mecA. The following antimicrobial resistance genes are reported if detected and the appropriate organisms are detected: CTX-M, IMP, KPC, NDM, OXA-48-like, and VIM. [facility] Serratia marcescens Not detected Not Detected S [facility] Staphylococcus aureus Not detected Not Detected [facility] Streptococcus pneumoniae Not detected Not Detec tommy [facility] Streptococcus pyogenes Not detected Not Detecte d [facility] VITAMIN D DEFICIENCY SCREENI NG (VIT D 25)on 01-16-2025 VIT D 25-OH, TOTAL 24 ng/mL Normal See comment [facility] Comment on above: Result Comment: KYM Gilmore COMMENTS:Target concentration: 30 - 40 ng/mL; toxicity seen at concentrations >100 ng/mLLess than 20 ng/mL: Indicative of Vit D deficiencyTest performed by [employer], measuring Total Vitamin D, not individual fractions. Performed By: #### L [id number] ####Process Safety Engineer: HANS PAULSON ([id number])[facility] (SBHLAB)[address] [place] [address] BASIC METABOLIC PANELon 10-2 Anion gap [Moles/Vol] 6 mmol/L Normal 3-13 [facility] Comment on above: Performed By: #### L AB113, LAB15, [id number] ####Process Safety Engineer: HANS PAULSON ([id number])[facility] (SBHLAB)[address] [place] [address] Calcium [Mass/Vol] 8.7 mg/dL Low 8.8-10.0 [facility] Comment on above: Performed By: #### L AB113, LAB15, [id number] ####Process Safety Engineer: HANS PAULSON ([id number])[facility] (SBHLAB)[address] Chloride [Moles/Vol] 100 mmol/L Normal 98-107 [facility] Comment on above: Performed By: #### L AB113, LAB15, [id number] ####Process Safety Engineer: HANS PAULSON ([id number])[facility]ITALNorma [facility]ENTERR[facility] (SBHLAB)[address] CO2 [Moles/Vol] 35 mmol/L High 23-31 [facility] Comment on above: Performed By: #### L AB113, LAB15, [id number] ####Process Safety Engineer: HANS PAULSON ([id number])[facility] ([facility])[address] Creatinine [Mass/Vol] 0.52 mg/dL Low 0.58-1.12 [facility] Comment on above: Performed By: #### L AB113, LAB15, [id number] ####Process Safety Engineer: HANS PAULSON ([id number])[facility]ITALNorm[facility])[address] GLOMERULAR FILTRATION RATE ML/MIN/1.73 SQ M.PREDICTED >90.0 Normal >60.0 [facility] Comment on above: Result Comment: Calc ulation based on the Chronic Kidney Disease Epidemiology Collaboration (CKD-EPI) equation refit without adjustment for race Performed By: #### L AB113, LAB15, [id number] ####Process Safety Engineer: HANS PAULSON ([id number])[facility] (HLAB)[address] Glucose [Mass/Vol] 148 mg/dL High 82-115 [facility] Comment on above: Performed By: #### L AB113, LAB15, [id number] ####Process Safety Engineer: HANS PAULSON ([id number])[facility])[address] Potassium [Moles/Vol] 4.3 mmol/L Normal 3.5-5.1 [facility] Comment on above: Result Comment: Plas ma potassium values may be up to 0.5 mmol/L lower than serum values. Performed By: #### L AB113, LAB15, [id number] ####Process Safety Engineer: HANS ALCANTARESCOBAR ([id number])[facility] (HLAB)[address] Sodium [Moles/Vol] 141 mmol/L Normal 136-145 [facility] Comment on above: Performed By: #### L AB113, LAB15, [id number] ####Process Safety Engineer: HANS WALDROPIVELISSE ([id number])[facility] Urea nitrogen [Mass/Vol] 18 mg/dL Normal 9-23 [facility] Comment on above: Performed By: #### L AB113, LAB15, [id number] ####Process Safety Engineer: HANS PAULSON ([id number])[facility] ([facility])[address] [place] [address] BLOOD GAS, VENOUSon 01-16-20 25 AMOUNT OF OXYGEN 6 Normal [facility] Comment on above: Result Comment: KYM Gilmoer COMMENTS:Assessment of oxygenation is best done with an arterial blood gas determination. Reference ranges for pO2, bicarbonate, and base excess are for mixed venous blood. Specimens drawn from a peripheral vein will often have higher values. Performed By: #### L AB79 ####Process Safety Engineer: HANS PAULSON ([id number])[facility] (SBHLAB)[address] Base excess Calc (BldV) [Moles/Vol] 9.5 mmol/L High -3.0-3.0 [facility] Comment on above: Performed By: #### L AB79 ####Process Safety Engineer: HANS PAULSON ([id number])[facility])[address] CO2 [Moles/Vol] 39.0 mmol/L High 23.0-30.0 [facility] Comment on above: Performed By: #### L AB79 ####Process Safety Engineer: HANS ALCANTARESCOBAR ([id number])[facility] (SBHLAB)[address] HCO3 (Bld) [Moles/Vol] 37.0 mmol/L High 21.0-30.0 [facility] Comment on above: Performed By: #### L AB79 ####Process Safety Engineer: HANS ALCANTARESCOBAR ([id number])[facility] (SBHLAB)[address] Hemoglobin (Bld) [Mass/Vol] 12.0 g/dL Normal Screen only [facility] Comment on above: Performed By: #### L AB79 ####Process Safety Engineer: HANS ALCANTARESCOBAR ([id number])[facility] [place] (SBHLAB)[address] OXYGEN (MM HG) IN VENOUS BLOOD 52.5 mm Hg Normal [facility] Comment on above: Performed By: #### L AB79 ####Process Safety Engineer: HANS ALCANTARESCOBAR ([id number])[facility] [place] (SBHLAB)[address] OXYGEN SATURATION (%) IN VENOUS BLOOD 86.5 % Normal [facility] Comment on above: Performed By: #### L AB79 ####Process Safety Engineer: HANS ALCANTARESCOBAR ([id number])[facility] [place] (SBHLAB)[address] PCO2, VICKY 65.6 mm Hg High 35.0-53.0 [facility] Comment on above: Performed By: #### L AB79 ####Process Safety Engineer: HANS WALDROPIVELISSE ([id number])[facility] [place] (SBHLAB)[address] PH VENOUS 7.369 Normal 7.320-7.420 [facility] Comment on above: Performed By: #### L AB79 ####Process Safety Engineer: HANS ALCANTARESCOBAR ([id number])[facility] [place] (SBHLAB)[address] SOURCE OF OXYGEN Nasal Cannula (LPM) Normal [facility] Comment on above: Performed By: #### L AB79 ####Process Safety Engineer: HANS PAULSON ([id number])[facility])[address] Basic metabolic 1998 panelon 01-15-2025 Anion gap [Moles/Vol] 6 mmol/L 3 - 13 mmol/L [facility] Calcium [Mass/Vol] 8.7 mg/dL Low 8.8 - 10. 0 mg/dL [facility] Chloride [Moles/Vol] 100 mmol/L 98 - 10 7 mmol/L [facility] CO2 [Moles/Vol] 35 mmol/L High 23 - 31 mmol/L [facility] Creatinine [Mass/Vol] 0.52 mg/dL Low 0.58 - 1.12 mg/dL [facility] GFR/1.73 sq M.predicted (S/P/Bld) [Vol rate/Area] - PINF [facility] Comment on above: Calculation based on the Chronic Kidney Disease Epidemiology Collaboration (CKD-EPI) equation refit without adjustment for race Glucose [Mass/Vol] 148 mg/dL High 82 - 115 mg/dL [facility] Potassium [Moles/Vol] 4.3 mmol/L 3.5 - 5.1 mmol/L [facility] Comment on above: Plasma potassium martín ues may be up to 0.5 mmol/L lower than serum values. Sodium [Moles/Vol] 141 mmol/L 136 - 145 mmol/L [facility] Urea nitrogen [Mass/Vol] 18 mg/dL 9 - 23 mg/d L [facility] CBC (HEMOGRAM)on 01-15-2025 Erythrocyte distribution width (RBC) [Ratio] 13.5 % Normal 11.5-15.0 [facility] Comment on above: Performed By: #### L AB294 ####Process Safety Engineer: HANS PAULSON ([id number])[facility] (SBHLAB)[address] [place] [address] Hematocrit (Bld) [Volume fraction] 35.6 % Normal 35.0-47.0 [facility] Comment on above: Performed By: #### L AB294 ####Process Safety Engineer: HANS AGUILARCER ([id number])[facility] HOSPITALNorma [facility]ILARaimundo (SBHLAB)[address] Hemoglobin (Bld) [Mass/Vol] 10.9 g/dL Low 11.7-16.0 [facility] Comment on above: Performed By: #### L AB294 ####Process Safety Engineer: HANS PAULSON ([id number])[facility] HOSPITALNorma [facility]ENT[facility] (SBHLAB)[address] MCH (RBC) [Entitic mass] 29.3 pg Normal 26.0-34.0 [facility] Comment on above: Performed By: #### L AB294 ####Process Safety Engineer: HANS ALCANTARESCOBAR ([id number])[facility] HOS[facility]ITALNorma [facility] (SBHL[facility])[address] MCHC 30.6 % Normal 30.5-36.0 [facility] Comment on above: Performed By: #### L AB294 ####Process Safety Engineer: HANS ALCANTARESCOBAR ([id number])[facility] H[facility]ITALNorma [facility] (SBHL[facility])[address] MCV (RBC) [Entitic vol] 95.7 fL Normal 77.0-99.0 [facility] Comment on above: Performed By: #### L AB294 ####Process Safety Engineer: HANS PAULSON ([id number])[facility]ITALNorm[facility] (SBHL[facility])[address] Platelet mean volume (Bld) [Entitic vol] 9.6 fL Normal 9.0-12.7 [facility] Comment on above: Performed By: #### L AB294 ####Process Safety Engineer: HANS PAULSON ([id number])[facility]ITALNorma [facility] (SBHL[facility])[address] Platelets (Bld) [#/Vol] 185 10*3/uL Normal 140-440 [facility] Comment on above: Performed By: #### L AB294 ####Process Safety Engineer: HANS PAULSON ([id number])[facility] (SBHLAB)[address] RBC (Bld) [#/Vol] 3.72 10*6/uL Low 3.80-5.20 [facility] Comment on above: Performed By: #### L [id number] ####Process Safety Engineer: HANS PAULSON ([id number])[facility] (SBHLAB)[address] WBC (Bld) [#/Vol] 6.6 10*3/uL Normal 3.6-10.7 [facility] Comment on above: Performed By: #### L [id number] ####Process Safety Engineer: HANS PAULSON ([id number])[facility]ITAL[facility] (SBHLAB)[address] [place] [address] CBC panel Auto (Bld)on 01-15 Erythrocyte distribution width (RBC) [Ratio] 13.5 % 11.5 - 15.0 % [facility] Hematocrit (Bld) [Volume fraction] 35.6 % 35.0 - 47.0 % [facility] Hemoglobin (Bld) [Mass/Vol] 10.9 g/dL Low 11.7 - 16.0 g/dL [facility] Interpretation and review of laboratory results Abnormal [facility] MCH (RBC) [Entitic mass] 29.3 pg 26. 0 - 34.0 pg [facility] MCHC (RBC) [Mass/Vol] 30.6 % 30.5 - 36.0 % [facility] MCV (RBC) [Entitic vol] 95.7 fL 77.0 - 99.0 fL [facility] Platelet mean volume (Bld) [Entitic vol] 9.6 fL 9.0 - 12.7 fL [facility] Platelets (Bld) [#/Vol] 185 10*3/uL 140 - 440 10*3/uL [facility] RBC (Bld) [#/Vol] 3.72 10*6/uL Low 3.80 - 5.2 0 10*6/uL [facility] WBC (Bld) [#/Vol] 6.6 10*3/uL 3.6 - 10.7 10*3/uL [facility] Consulton 01-15-2025 Consult Normal [facility] Laboratory - Chemistry and C hemistry - challengeon 01-15-2025 Magnesium [Mass/Vol] 1.8 mg/dL 1.6 - 2 .6 mg/dL [facility] Laboratory - Chemistry and C hemistry - challengeOrdered By: Lynette Huitron on 01-15-2025 Base excess Calc (BldV) [Moles/Vol] 9.5 mmol/L High -3.0 - 3.0 mmol/L [facility] CO2 (BldV) [Partial pressure] 65.6 mm[Hg] High [facility] CO2 [Moles/Vol] 39 mmol/L High 23.0 - 30.0 mmol/L [facility] HCO3 (Bld) [Moles/Vol] 37 mmol/L High 21.0 - 30.0 mmol/L [facility] Oxygen (BldV) [Partial pressure] 52.5 mm[Hg] mm Hg [facility] pH (BldV) 7.369 [pH] 7.320 - 7.420 [facility] Laboratory - Hematology and Cell countsOrdered By: Lynette Huitron on 01-15-2025 Hemoglobin (Bld) [Mass/Vol] 12 g/dL 12.0 - 16.0 g/dl [facility] MAGNESIUMon 01-15-2025 Magnesium [Mass/Vol] 1.8 mg/dL Normal 1.6-2.6 [facility] Comment on above: Result Comment: KYM Gilmore COMMENTS:Higher values can be expected in females during menses. Performed By: #### L [id number], [id number], [id number] ####Process Safety Engineer: HANS PAULSON ([id number])[facility] ([facility])[address] [place] [address] Magnesium [Mass/Vol]on 01-15 Interpretation and review of laboratory results Normal [facility] Higher values can be expected in females during menses. [facility] No Panel Informationon 01-15 Interpretation and review of laboratory results Abnormal [facility] No Panel InformationOrdered By: Lynette Huitron on 01-15-2025 Amount Of Oxygen 6 [facility] Interpretation and review of laboratory results Abnormal [facility] Source Of Oxygen Nasal Cannula (LPM) [facility] Assessment of oxygenation is best done with an arterial blood gas determination. Reference ranges for pO2, bicarbonate, and base excess are for mixed venous blood. Specimens drawn from a peripheral vein will often have higher values. [facility] PHOSPHORUSon 01-15-2025 Phosphate [Mass/Vol] 2.1 mg/dL Low 2.3-4.7 [facility] Comment on above: Performed By: #### L AB113, [id number], [id number] ####Process Safety Engineer: HANS PAULSON ([id number])[facility] ([facility])[address] [place] [address] [place] Phosphate [Moles/Vol]on 12-20 Phosphate [Mass/Vol] 2.1 mg/dL Low 2.3 - 4 .7 mg/dL [facility] Progress Noteon 01-15-[address] [facility] Progress Note [facility] Progress [facility] Accepted ICU transfe r from Dr. Pires Normal [facility] Vital signsOrdered By: Lynette Huitron on 01-15-2025 Oxygen saturation in Venous blood 86.5 % [facility] BASIC METABOLIC PANELon 12-20 Anion gap [Moles/Vol] 7 mmol/L Normal 3-13 [facility] Comment on above: Performed By: #### L AB15 ####Process Safety Engineer: HANS PAULSON ([id number])[facility] Calcium [Mass/Vol] 8.7 mg/dL Low 8.8-10.0 [facility] Comment on above: Performed By: #### L AB15 ####Process Safety Engineer: HANS PAULSON ([id number])[facility] (HLAB)[address] [place] [address] [place] Chloride [Moles/Vol] 101 mmol/L Normal 98-107 [facility] Comment on above: Performed By: #### L AB15 ####Process Safety Engineer: HANS PAULSON ([id number])[facility] (SBHLAB)[address] CO2 [Moles/Vol] 36 mmol/L High 23-31 [facility] Comment on above: Performed By: #### L AB15 ####Process Safety Engineer: HANS PAULSON ([id number])[facility] (HLAB)[address] Creatinine [Mass/Vol] 0.55 mg/dL Low 0.58-1.12 [facility] Comment on above: Performed By: #### L AB15 ####Process Safety Engineer: HANS PAULSON ([id number])[facility])[address] [place] [address] GLOMERULAR FILTRATION RATE ML/MIN/1.73 SQ M.PREDICTED >90.0 Normal >60.0 [facility] Comment on above: Result Comment: Calc ulation based on the Chronic Kidney Disease Epidemiology Collaboration (CKD-EPI) equation refit without adjustment for race Performed By: #### L AB15 ####Process Safety Engineer: HANS PAULSON ([id number])[facility] ([facility])[address] Glucose [Mass/Vol] 93 mg/dL Normal 82-115 [facility] Comment on above: Performed By: #### L AB15 ####Process Safety Engineer: HANS PAULSON ([id number])[facility] (HLAB)[address] [place] [address] [place] Potassium [Moles/Vol] 4.0 mmol/L Normal 3.5-5.1 [facility] Comment on above: Result Comment: [facility] potassium values may be up to 0.5 mmol/L lower than serum values. Performed By: #### L AB15 ####Process Safety Engineer: HANS PAULSON ([id number])[facility] (SBHLAB)[address] [place] [address] [place] Sodium [Moles/Vol] 144 mmol/L Normal 136-145 [facility] Comment on above: Performed By: #### L AB15 ####Process Safety Engineer: HANS PAULSON ([id number])[facility] [place] (SBHLAB)[address] Urea nitrogen [Mass/Vol] 20 mg/dL Normal 9-23 [facility] Comment on above: Performed By: #### L AB15 ####Process Safety Engineer: HANS AGUILARCER ([id number])[facility] [place] (SBHLAB)[address] BLOOD GAS ARTERIALon 025 AMOUNT OF OXYGEN 45 Normal [facility] Comment on above: Performed By: #### L AB76 ####Process Safety Engineer: HANS PAULSON ([id number])[facility] (SBHLAB)[address] Base excess Calc (Bld) [Moles/Vol] 9.9 mmol/L High -3.0-3.0 [facility] Comment on above: Performed By: #### L AB76 ####Process Safety Engineer: HANS PAULSON ([id number])[facility] (SBHLAB)[address] CO2 [Moles/Vol] 38.6 mmol/L High 22.0-28.0 [facility] Comment on above: Performed By: #### L AB76 ####Process Safety Engineer: HANS PAULSON ([id number])[facility] [place] (SBHLAB)[address] [place] [address] [place] HCO3 (Bld) [Moles/Vol] 36.7 mmol/L High 21.0-27.0 [facility] Comment on above: Performed By: #### L AB76 ####Process Safety Engineer: HANS PAULSON ([id number])[facility] (SBHLAB)[address] Hemoglobin (Bld) [Mass/Vol] 10.8 g/dL Low Screen only [facility] Comment on above: Performed By: #### L AB76 ####Process Safety Engineer: HANS PAULSON ([id number])[facility] [place] (SBHLAB)[address] OXYGEN SATURATION (%) IN ARTERIAL BLOOD 94.7 % Low 97.0-99.0 [facility] Comment on above: Performed By: #### L AB76 ####Process Safety Engineer: HANS PAULSON ([id number])[facility] (SBHLAB)[address] PCO2 ARTERIAL 61.8 mm Hg High 32.0-45.0 [facility] Comment on above: Performed By: #### L AB76 ####Process Safety Engineer: HANS PAULSON ([id number])[facility] (SBHLAB)[address] PH ARTERIAL 7.391 Normal 7.350-7.450 [facility] Comment on above: Performed By: #### L AB76 ####Process Safety Engineer: HANS PAULSON ([id number])[facility] (SBHLAB)[address] PO2 ARTERIAL 73.2 mm Hg Low 83.0-108.0 [facility] Comment on above: Performed By: #### L AB76 ####Process Safety Engineer: HANS PAULSON ([id number])[facility] (SBHLAB)[address] SOURCE OF OXYGEN BiPAP Normal [facility] Comment on above: Performed By: #### L AB76 ####Process Safety Engineer: HANS PAULSON ([id number])[facility] (SBHLAB)[address] Basic metabolic 1998 panelon 01-14-2025 Anion gap [Moles/Vol] 7 mmol/L 3 - 13 mmol/L [facility] Calcium [Mass/Vol] 8.7 mg/dL Low 8.8 - 10. 0 mg/dL [facility] Chloride [Moles/Vol] 101 mmol/L 98 - 10 7 mmol/L [facility] CO2 [Moles/Vol] 36 mmol/L High 23 - 31 mmol/L [facility] Creatinine [Mass/Vol] 0.55 mg/dL Low 0.58 - 1.12 mg/dL [facility] GFR/1.73 sq M.predicted (S/P/Bld) [Vol rate/Area] - PINF [facility] Comment on above: Calculation based on the Chronic Kidney Disease Epidemiology Collaboration (CKD-EPI) equation refit without adjustment for race Glucose [Mass/Vol] 93 mg/dL 82 - 115 mg/dL [facility] Interpretation and review of laboratory results Abnormal [facility] Potassium [Moles/Vol] 4 mmol/L 3.5 - 5.1 mmol/L [facility] Comment on above: Plasma potassium martín ues may be up to 0.5 mmol/L lower than serum values. Sodium [Moles/Vol] 144 mmol/L 136 - 145 mmol/L [facility] Urea nitrogen [Mass/Vol] 20 mg/dL 9 - 23 mg/d L [facility] Laboratory - Chemistry and C hemistry - challengeOrdered By: Rosa Ruiz on 01-14-2025 Base excess Calc (Bld) [Moles/Vol] 9.9 mmol/L High -3.0 - 3.0 mmol/L [facility] CO2 (Bld) [Partial pressure] 61.8 mm[Hg] High [facility] CO2 [Moles/Vol] 38.6 mmol/L High 22.0 - 28.0 mmol/L [facility] HCO3 (Bld) [Moles/Vol] 36.7 mmol/L High 21.0 - 27.0 mmol/L [facility] Oxygen (Bld) [Partial pressure] 73.2 mm[Hg] Low [facility] pH (Bld) 7.391 [pH] 7.350 - 7.450 [facility] Laboratory - Hematology and Cell countsOrdered By: Rosa Ruiz on 01-14-2025 Hemoglobin (Bld) [Mass/Vol] 10.8 g/dL Low 12.0 - 16.0 g/dl [facility] No Panel InformationOrdered By: Rosa Ruiz on 01-14-2025 Amount Of Oxygen 45 [facility]th Interpretation and review of laboratory results Abnormal [facility] Source Of Oxygen BiPAP Abe German al[facility] Progress Noteon 01-14-2025 Progress Note Normal [facility] Progress Note Normal [facility] [id number] 01-13-2025 [id number] Normal [facility] BLOOD GAS, VENOUSon 01-14-20 25 AMOUNT OF OXYGEN 55 Normal [facility] Comment on above: Result Comment: KYM Gilmore COMMENTS:Assessment of oxygenation is best done with an arterial blood gas determination. Reference ranges for pO2, bicarbonate, and base excess are for mixed venous blood. Specimens drawn from a peripheral vein will often have higher values. Performed By: #### L [id number] ####Process Safety Engineer: HANS PAULSON ([id number])[facility] (SBHLAB)[address] [place] [address] Base excess Calc (BldV) [Moles/Vol] 6.3 mmol/L High -3.0-3.0 [facility] Comment on above: Performed By: #### L AB79 ####Process Safety Engineer: HANS PAULSON ([id number])[facility] (SBHLAB)[address] [place] [address] [place] CO2 [Moles/Vol] 38.1 mmol/L High 23.0-30.0 [facility] Comment on above: Performed By: #### L AB79 ####Process Safety Engineer: HANS PAULSON ([id number])[facility] (SBHLAB)[address] [place] [address] [place] HCO3 (Bld) [Moles/Vol] 35.6 mmol/L High 21.0-30.0 [facility] Comment on above: Performed By: #### L AB79 ####Process Safety Engineer: HANS PAULSON ([id number])[facility] (SBHLAB)[address] [place] [address] [place] Hemoglobin (Bld) [Mass/Vol] 11.3 g/dL Low Screen only [facility] Comment on above: Performed By: #### L AB79 ####Process Safety Engineer: HANS AGUILARCER ([id number])[facility] [place] (SBHLAB)[address] OXYGEN (MM HG) IN VENOUS BLOOD 35.8 mm Hg Normal [facility] Comment on above: Performed By: #### L AB79 ####Process Safety Engineer: HANS WALDROPIVELISSE ([id number])[facility] [place] (SBHLAB)[address] OXYGEN SATURATION (%) IN VENOUS BLOOD 63.4 % Normal [facility] Comment on above: Performed By: #### L AB79 ####Process Safety Engineer: HANS PAULSON ([id number])[facility] [place] (SBHLAB)[address] PCO2, VICKY 80.8 mm Hg High 35.0-53.0 [facility] Comment on above: Performed By: #### L AB79 ####Process Safety Engineer: HANS PAULSON ([id number])[facility] [place] (SBHLAB)[address] PH VENOUS 7.262 Low 7.320-7.420 [facility] Comment on above: Performed By: #### L AB79 ####Process Safety Engineer: HANS ALCANTARESCOBAR ([id number])[facility] [place] (SBHLAB)[address] SOURCE OF OXYGEN BiPAP Normal [facility] Comment on above: Performed By: #### L AB79 ####Process Safety Engineer: HANS ALCANTARESCOBAR ([id number])[facility] [place] (SBHLAB)[address] [place] [address] [place] CBC W Auto Differential pane l (Bld)Ordered By: Yair Sanchez on 01-13-2025 Basophils (Bld) [#/Vol] 0 10*3/uL 0.0 - 0.2 10*3/uL [facility] Basophils/100 WBC (Bld) 0.1 % 0.0 - 2.0 % [facility] Eosinophils (Bld) [#/Vol] 0 10*3/uL 0.0 - 0.5 10*3/uL [facility] Eosinophils/100 WBC (Bld) 0.2 % 0.0 - 6.0 % [facility] Erythrocyte distribution width (RBC) [Ratio] 13.7 % 11.5 - 15.0 % [facility] Hematocrit (Bld) [Volume fraction] 34.2 % Low 35.0 - 47.0 % [facility] Hemoglobin (Bld) [Mass/Vol] 10.2 g/dL Low 11.7 - 16.0 g/dL [facility] Immature granulocytes (Bld) [#/Vol] 0 10*3/uL NINF - 0.1 10*3/uL [facility] Immature granulocytes/100 WBC (Bld) 0.3 % 0.0 - 2.0 % [facility] Interpretation and review of laboratory results Abnormal [facility] Lymphocytes (Bld) [#/Vol] 0.8 10*3/uL Low 1.0 - 4.3 10*3/uL [facility] Lymphocytes/100 WBC (Bld) 6.3 % Low 15.0 - 45.0 % [facility] MCH (RBC) [Entitic mass] 29.1 pg 26. 0 - 34.0 pg [facility] MCHC (RBC) [Mass/Vol] 29.8 % Low 30.5 - 36.0 % [facility] MCV (RBC) [Entitic vol] 97.7 fL 77.0 - 99.0 fL [facility] [employer] Monocytes (Bld) [#/Vol] 0.9 10*3/uL 0.0 - 0.9 10*3/uL [facility] Monocytes/100 WBC (Bld) 7.3 % 5.0 - 13.0 % [facility] Neutrophils (Bld) [#/Vol] 10.8 10*3/uL High 1.8 - 7.5 10*3/uL [facility] [employer] Neutrophils/100 WBC (Bld) 85.8 % High 38.0 - 82.0 % [facility] [employer] Nucleated RBC/100 WBC (Bld) [Ratio] 0 % [facility] Platelet mean volume (Bld) [Entitic vol] 9.7 fL 9.0 - 12.7 fL [facility] [employer] Platelets (Bld) [#/Vol] 152 10*3/uL 140 - 440 10*3/uL [facility] RBC (Bld) [#/Vol] 3.5 10*6/uL Low 3.80 - 5.2 0 10*6/uL [facility] WBC (Bld) [#/Vol] 12.5 10*3/uL High 3.6 - 10.7 10*3/uL [facility] CBC WITH AUTO DIFFERENTIALon 01-13-2025 Basophils (Bld) [#/Vol] 0.0 10*3/uL Normal 0.0-0.2 [facility] Comment on above: Performed By: #### L [id number] ####Process Safety Engineer: HANS PAULSON ([id number])[facility] [place] (SBHLAB)[address] Basophils/100 WBC (Bld) 0.1 % Normal 0.0-2.0 [facility] Comment on above: Performed By: #### L [id number] ####Process Safety Engineer: HANS PAULSON ([id number])[facility] [place] (SBHLAB)[address] Eosinophils (Bld) [#/Vol] 0.0 10*3/uL Normal 0.0-0.5 [facility] Comment on above: Performed By: #### L [id number] ####Process Safety Engineer: HANS PAULSON ([id number])[facility] [place] (SBHLAB)[address] [place] [address] Eosinophils/100 WBC (Bld) 0.2 % Normal 0.0-6.0 [facility] Comment on above: Performed By: #### L [id number] ####Process Safety Engineer: HANS PAULSON ([id number])[facility] [place] (SB[facility]AB)[address] Erythrocyte distribution width (RBC) [Ratio] 13.7 % Normal 11.5-15.0 [facility] Comment on above: Performed By: #### L [id number] ####Process Safety Engineer: HANS PAULSON ([id number])[facility] [place] (SB[facility]AB)[address] Hematocrit (Bld) [Volume fraction] 34.2 % Low 35.0-47.0 [facility] Comment on above: Performed By: #### L [id number] ####Process Safety Engineer: HANS ALCANTARESCOBAR ([id number])[facility] [place] (SB[facility])[address] Hemoglobin (Bld) [Mass/Vol] 10.2 g/dL Low 11.7-16.0 [facility] Comment on above: Performed By: #### L [id number] ####Process Safety Engineer: HANS PAULSON ([id number])[facility] (SBHLAB)[address] IMMATURE GRANS % 0.3 % Normal 0.0-2.0 [facility] Comment on above: Performed By: #### L [id number] ####Process Safety Engineer: HANS PAULSON ([id number])[facility] ([facility])[address] IMMATURE GRANS ABSOLUTE 0.0 10*3/uL Normal <0.1 [facility] Comment on above: Performed By: #### L [id number] ####Process Safety Engineer: HANS PAULSON ([id number])[facility] (SB[facility])[address] Lymphocytes (Bld) [#/Vol] 0.8 10*3/uL Low 1.0-4.3 [facility] Comment on above: Performed By: #### L [id number] ####Process Safety Engineer: HANS PAULSON ([id number])[facility] [place] (SB[facility])[address] [place] [address] [place] Lymphocytes/100 WBC (Bld) 6.3 % Low 15.0-45.0 [facility] Comment on above: Performed By: #### L [id number] ####Process Safety Engineer: HANS PAULSON ([id number])[facility] ([facility])[address] MCH (RBC) [Entitic mass] 29.1 pg Normal 26.0-34.0 [facility] Comment on above: Performed By: #### L [id number] ####Process Safety Engineer: HANS ALCANTARESCOBAR ([id number])[facility] [place] (SBHLAB)[address] MCHC 29.8 % Low 30.5-36.0 [facility] Comment on above: Performed By: #### L [id number] ####Process Safety Engineer: HANS ALCANTARESCOBAR ([id number])[facility] [place] (SBHLAB)[address] MCV (RBC) [Entitic vol] 97.7 fL Normal 77.0-99.0 [facility] Comment on above: Performed By: #### L [id number] ####Process Safety Engineer: HANS PAULSON ([id number])[facility] [place] (SBHLAB)[address] Monocytes (Bld) [#/Vol] 0.9 10*3/uL Normal 0.0-0.9 [facility] Comment on above: Performed By: #### L [id number] ####Process Safety Engineer: HANS PAULSON ([id number])[facility] [place] (SBHLAB)[address] Monocytes/100 WBC (Bld) 7.3 % Normal 5.0-13.0 [facility] Comment on above: Performed By: #### L [id number] ####Process Safety Engineer: HANS PAULSON ([id number])[facility] [place] (SBHL[facility])[address] NEUTROPHILS ABSOLUTE 10.8 10*3/uL High 1.8-7.5 [facility] Comment on above: Performed By: #### L [id number] ####Process Safety Engineer: HANS PAULSON ([id number])[facility] [place] ([facility])[address] Neutrophils/100 WBC (Bld) 85.8 % High 38.0-82.0 [facility] Comment on above: Performed By: #### L [id number] ####Process Safety Engineer: HANS PAULSON ([id number])[facility] [place] (SBHLAB)[address] NRBC 0.0 /100 WBCs Normal 0.0-2.0 [facility] Comment on above: Performed By: #### L [id number] ####Process Safety Engineer: HANS PAULSON ([id number])[facility] [place] ([facility])[address] Platelet mean volume (Bld) [Entitic vol] 9.7 fL Normal 9.0-12.7 [facility] Comment on above: Performed By: #### L [id number] ####Process Safety Engineer: HANS PAULSON ([id number])[facility] [place] ([facility])[address] Platelets (Bld) [#/Vol] 152 10*3/uL Normal 140-440 [facility] Comment on above: Performed By: #### L [id number] ####Process Safety Engineer: HANS PAULSON ([id number])[facility] [place] ([facility])[address] RBC (Bld) [#/Vol] 3.50 10*6/uL Low 3.80-5.20 [facility] Comment on above: Performed By: #### L [id number] ####Process Safety Engineer: HANS PAULSON ([id number])[facility] [place] (SB[facility])[address] [place] [address] [place] WBC (Bld) [#/Vol] 12.5 10*3/uL High 3.6-10.7 [facility] Comment on above: Performed By: #### L [id number] ####Process Safety Engineer: HANS PAULSON ([id number])[facility] [place] ([facility])[address] COMPREHENSIVE METABOLIC PANE Cory 01-13-2025 Albumin [Mass/Vol] 2.9 g/dL Low 3.1-4.5 [facility] Comment on above: Performed By: #### L [id number] ####Process Safety Engineer: HANS PAULSON ([id number])[facility] [place] (SBHL[facility])[address] ALP [Catalytic activity/Vol] 124 U/L Normal 40-150 [facility] Comment on above: Performed By: #### L [id number] ####Process Safety Engineer: HANS PAULSON ([id number])[facility] [place] ([facility])[address] ALT [Catalytic activity/Vol] 33 U/L High <30 [facility] Comment on above: Performed By: #### L [id number] ####Process Safety Engineer: HANS PAULSON ([id number])[facility] [place] ([facility])[address] Anion gap [Moles/Vol] 4 mmol/L Normal 3-13 [facility] Comment on above: Performed By: #### L [id number] ####Process Safety Engineer: HANS PAULSON ([id number])[facility] [place] ([facility])[address] AST [Catalytic activity/Vol] 27 U/L Normal <34 [facility] [facility] Comment on above: Performed By: #### L [id number] ####Process Safety Engineer: HANS PAULSON ([id number])[facility] [place] (SBHLAB)[address] Bilirubin [Mass/Vol] 0.3 mg/dL Normal <1.2 [facility] Comment on above: Performed By: #### L [id number] ####Process Safety Engineer: HANS PAULSON ([id number])[facility] [place] (SBHLAB)[address] Calcium [Mass/Vol] 8.6 mg/dL Low 8.8-10.0 [facility] Comment on above: Performed By: #### L [id number] ####Process Safety Engineer: HANS PAULSON ([id number])[place] [place] (SBHLAB)[address] Chloride [Moles/Vol] 101 mmol/L Normal 98-107 [facility] Comment on above: Performed By: #### L [id number] ####Process Safety Engineer: HANS PAULSON ([id number])[facility] (SBHLAB)[address] CO2 [Moles/Vol] 34 mmol/L High 23-31 [facility] Comment on above: Performed By: #### L [id number] ####Process Safety Engineer: HANS PAULSON ([id number])[facility] [place] (HLAB)[address] Creatinine [Mass/Vol] 0.49 mg/dL Low 0.58-1.12 [facility] Comment on above: Performed By: #### L [id number] ####Process Safety Engineer: HANS PAULSON ([id number])[facility]ITAL[facility] (HLAB)[address] GLOMERULAR FILTRATION RATE ML/MIN/1.73 SQ M.PREDICTED >90.0 Normal >60.0 [facility] Comment on above: Result Comment: Calc ulation based on the Chronic Kidney Disease Epidemiology Collaboration (CKD-EPI) equation refit without adjustment for race Performed By: #### L [id number] ####Process Safety Engineer: HANS PAULSON ([id number])[facility]ITAL[facility] [place] (SBHLAB)155 [place] [address] [place] Glucose [Mass/Vol] 98 mg/dL Normal 82-115 [facility] Comment on above: Performed By: #### L [id number] ####Process Safety Engineer: HANS PAULSON ([id number])[facility] (SBHLAB)155 [place] [address] [place] Potassium [Moles/Vol] 4.7 mmol/L Normal 3.5-5.1 [facility] Comment on above: Result Comment: [facility] potassium values may be up to 0.5 mmol/L lower than serum values. Performed By: #### L [id number] ####Process Safety Engineer: HANS PAULSON ([id number])[facility] (SBHLAB)[address] Protein [Mass/Vol] 6.4 g/dL Normal 6.4-8.3 [facility] Comment on above: Performed By: #### L [id number] ####Process Safety Engineer: HANS PAULSON ([id number])[facility] (SBHLAB)[address] Sodium [Moles/Vol] 139 mmol/L Normal 136-145 [facility] Comment on above: Performed By: #### L [id number] ####Process Safety Engineer: HANS PAULSON ([id number])[facility] (SBHLAB)[address] [place] [address] Urea nitrogen [Mass/Vol] 17 mg/dL Normal 9-23 [facility] Comment on above: Performed By: #### L [id number] ####Process Safety Engineer: HANS PAULSON ([id number])[facility] (SBHLAB)[address] [place] [address] Comprehensive metabolic 1998 panelon 01-13-2025 Albumin [Mass/Vol] 2.9 g/dL Low 3.1 - 4.5 g/dL [facility] ALP [Catalytic activity/Vol] 124 U/L 40 - 150 U/L [facility] ALT [Catalytic activity/Vol] 33 U/L High NINF - 30 U/L [facility] Anion gap [Moles/Vol] 4 mmol/L 3 - 13 mmol/L [facility] AST [Catalytic activity/Vol] 27 U/L NINF - 34 U/L [facility] Bilirubin [Mass/Vol] 0.3 mg/dL NINF - 1.2 mg/dL [facility] Calcium [Mass/Vol] 8.6 mg/dL Low 8.8 - 10. 0 mg/dL [facility] Chloride [Moles/Vol] 101 mmol/L 98 - 10 7 mmol/L [facility] CO2 [Moles/Vol] 34 mmol/L High 23 - 31 mmol/L [facility] Creatinine [Mass/Vol] 0.49 mg/dL Low 0.58 - 1.12 mg/dL [facility] GFR/1.73 sq M.predicted (S/P/Bld) [Vol rate/Area] - PINF [facility] Comment on above: Calculation based on the Chronic Kidney Disease Epidemiology Collaboration (CKD-EPI) equation refit without adjustment for race Glucose [Mass/Vol] 98 mg/dL 82 - 115 mg/dL [facility] Interpretation and review of laboratory results Abnormal [facility] Potassium [Moles/Vol] 4.7 mmol/L 3.5 - 5.1 mmol/L [facility] Comment on above: Plasma potassium martín ues may be up to 0.5 mmol/L lower than serum values. Protein [Mass/Vol] 6.4 g/dL 6.4 - 8.3 g/dL [facility] Sodium [Moles/Vol] 139 mmol/L 136 - 145 mmol/L [facility] Urea nitrogen [Mass/Vol] 17 mg/dL 9 - 23 mg/d L [facility] Consulton 01-13-2025 Consult Normal [facility] Laboratory - Chemistry and C hemistry - challengeOrdered By: Rolando Shelton on 01-13-2025 Base excess Calc (BldV) [Moles/Vol] 6.3 mmol/L High -3.0 - 3.0 mmol/L [facility] CO2 (BldV) [Partial pressure] 80.8 mm[Hg] High [facility] CO2 [Moles/Vol] 38.1 mmol/L High 23.0 - 30.0 mmol/L [facility] HCO3 (Bld) [Moles/Vol] 35.6 mmol/L High 21.0 - 30.0 mmol/L [facility] Oxygen (BldV) [Partial pressure] 35.8 mm[Hg] mm Hg [facility] pH (BldV) 7.262 [pH] Low 7.320 - 7.420 [facility] Laboratory - Hematology and Cell countsOrdered By: Rolando Shelton on 01-13-2025 Hemoglobin (Bld) [Mass/Vol] 11.3 g/dL Low 12.0 - 16.0 g/dl [facility] No Panel InformationOrdered By: Rolando Shelton on 01-13-2025 Amount Of Oxygen 55 [facility] Interpretation and review of laboratory results Abnormal [facility] Source Of Oxygen BiPAP [facility] Assessment of oxygenation is best done with an arterial blood gas determination. Reference ranges for pO2, bicarbonate, and base excess are for mixed venous blood. Specimens drawn from a peripheral vein will often have higher values. [facility] Progress Noteon 01-13-2025 Progress Note Normal [facility] Progress Note Normal [facility] Vital signsOrdered By: Andres Shelton on 01-13-2025 Oxygen saturation in Venous blood 63.4 % [facility] XR Chest Single viewon 01-13 Emphysema, unchanged . Parenchymal fibrotic changes. Left subclavian MediPort, unchanged. Report Dictated on Electronically Signed By: Jaspreet Jeong DO Electronically Signed Date/Time: 01/13/2025 6:33 AM EDT [facility] Patient Name: GONZALO DELUCA : 1955 [...] MediPort catheter tip overlies mid SVC, unchanged. [facility] Jaspreet Jeong DO - 01/13/2025 [...] Electronically Signed Date/Time: 01/13/2025 6:33 AM EDT [facility] Radiology Study observation (narrative) [facility] XR Chest Single viewOrdered By: Jaspreet Jeong on 01-13-2025 [facility] [employer] Work Phone: ACETAMINOPHEN LEVELon 2024 Acetaminophen [Mass/Vol] ug/mL Low 10.0-30.0 [facility] Comment on above: Result Comment: KYM Gilmore COMMENTS:Acetaminophen concentrations greater than 150 ug/mL at 4 hours after ingestion and greater than 40 ug/mL at 12 hours after ingestion are often associated with toxicity. Performed By: #### L [id number], [id number], LAB34, [id number] ####Process Safety Engineer: HANS PAULSON ([id number])[facility] (SBAB)[address] [place] [address] Acetaminophen [Mass/Vol]on 1 Acetaminophen concentrations greater than 150 ug/mL at 4 hours after ingestion and greater than 40 ug/mL at 12 hours after ingestion are often associated with toxicity. [facility] BLOOD CULTUREon 01-12-2025 Bacteria identified Cx Nom (Bld) Normal [facility] Comment on above: Performed By: #### L [id number] ####Process Safety Engineer: AMELIE ELIZABETH ([id number])[facility] (SACLAB)[address] [place] [address] BLOOD GAS, VENOUSon 10-25-20 25 AMOUNT OF OXYGEN 60 Normal [facility] Comment on above: Result Comment: KYM Gilmore COMMENTS:Assessment of oxygenation is best done with an arterial blood gas determination. Reference ranges for pO2, bicarbonate, and base excess are for mixed venous blood. Specimens drawn from a peripheral vein will often have higher values. Performed By: #### L AB79 ####Process Safety Engineer: HANS PAULSON ([id number])[facility] [place] (SBHLAB)[address] Base excess Calc (BldV) [Moles/Vol] 4.0 mmol/L High -3.0-3.0 [facility] Comment on above: Performed By: #### L AB79 ####Process Safety Engineer: HANS PAULSON ([id number])[facility] (SBHLAB)[address] CO2 [Moles/Vol] 37.1 mmol/L High 23.0-30.0 [facility] Comment on above: Performed By: #### L AB79 ####Process Safety Engineer: HANS PAULSON ([id number])[facility] (SBHLAB)[address] HCO3 (Bld) [Moles/Vol] 34.4 mmol/L High 21.0-30.0 [facility] Comment on above: Performed By: #### L AB79 ####Process Safety Engineer: HANS PAULSON ([id number])[facility] [place] (SBHLAB)[address] Hemoglobin (Bld) [Mass/Vol] 12.1 g/dL Normal Screen only [facility] Comment on above: Performed By: #### L AB79 ####Process Safety Engineer: HANS PAULSON ([id number])[facility] (SBHLAB)[address] OXYGEN (MM HG) IN VENOUS BLOOD 30.0 mm Hg Normal [facility] Comment on above: Performed By: #### L AB79 ####Process Safety Engineer: HANS PAULSON ([id number])[facility] [place] (SBHLAB)[address] OXYGEN SATURATION (%) IN VENOUS BLOOD 50.1 % Normal [facility] Comment on above: Performed By: #### L [id number] ####Process Safety Engineer: HANSRONALD PAULSON ([id number])[facility] [place] (SBHLAB)[address] [place] [address] [place] PCO2, VICKY 88.2 mm Hg High 35.0-53.0 [facility] Comment on above: Performed By: #### L AB79 ####Process Safety Engineer: HANSRONALD PAULSON ([id number])[facility] (HLAB)[address] PH VENOUS 7.209 Low 7.320-7.420 [facility] Comment on above: Performed By: #### L AB79 ####Process Safety Engineer: HANSRONALD PAULSON ([id number])[facility] ([facility] SOURCE OF OXYGEN Non-Invasive Ventilator Normal [facility] Comment on above: Performed By: #### L AB79 ####Process Safety Engineer: HANSRONALD PAULSON ([id number])[facility] ([facility])[address] [place] [address] AMOUNT OF OXYGEN 60% Normal [facility] Comment on above: Result Comment: KYM Gilmore COMMENTS:Assessment of oxygenation is best done with an arterial blood gas determination. Reference ranges for pO2, bicarbonate, and base excess are for mixed venous blood. Specimens drawn from a peripheral vein will often have higher values. Performed By: #### L AB79 ####Process Safety Engineer: HANSRONALD PAULSON ([id number])[facility] [place] (SBHLAB)[address] Base excess Calc (BldV) [Moles/Vol] 2.6 mmol/L Normal -3.0-3.0 [facility] Comment on above: Performed By: #### L AB79 ####Process Safety Engineer: HANS PAULSON ([id number])[facility] [place] (SBHLAB)[address] CO2 [Moles/Vol] 35.9 mmol/L High 23.0-30.0 [facility] Comment on above: Performed By: #### L AB79 ####Process Safety Engineer: HANS PAULSON ([id number])[facility] [place] (SBHLAB)[address] HCO3 (Bld) [Moles/Vol] 33.2 mmol/L High 21.0-30.0 [facility] Comment on above: Performed By: #### L AB79 ####Process Safety Engineer: HANS PAULSON ([id number])[facility] [place] (SBHLAB)[address] Hemoglobin (Bld) [Mass/Vol] 12.3 g/dL Normal Screen only [facility] Comment on above: Performed By: #### L AB79 ####Process Safety Engineer: HANS PAULSON ([id number])[facility] [place] (SBHLAB)[address] OXYGEN (MM HG) IN VENOUS BLOOD 60.9 mm Hg Normal [facility] Comment on above: Performed By: #### L AB79 ####Process Safety Engineer: HANS PAULSON ([id number])[facility] (SBHLAB)[address] OXYGEN SATURATION (%) IN VENOUS BLOOD 85.8 % Normal [facility] Comment on above: Performed By: #### L AB79 ####Process Safety Engineer: HANS PAULSON ([id number])[facility] (SBHLAB)[address] PCO2, VICKY 88.4 mm Hg High 35.0-53.0 [facility] Comment on above: Performed By: #### L AB79 ####Process Safety Engineer: HANS PAULSON ([id number])[facility] [place] (SBHLAB)[address] PH VENOUS 7.193 Low 7.320-7.420 [facility] Comment on above: Performed By: #### L AB79 ####Process Safety Engineer: HANS PAULSON ([id number])[facility] [place] (SBHLAB)[address] SOURCE OF OXYGEN BiPAP Normal [facility] Comment on above: Performed By: #### L AB79 ####Process Safety Engineer: HANS PAULSON ([id number])[facility] (SBHLAB)[address] AMOUNT OF OXYGEN 3 Normal [facility] Comment on above: Result Comment: KYM Gilmore COMMENTS:Assessment of oxygenation is best done with an arterial blood gas determination. Reference ranges for pO2, bicarbonate, and base excess are for mixed venous blood. Specimens drawn from a peripheral vein will often have higher values. Performed By: #### L AB79 ####Process Safety Engineer: HANS PAULSON ([id number])[facility] [place] (SBHLAB)[address] Base excess Calc (BldV) [Moles/Vol] 5.5 mmol/L High -3.0-3.0 [facility] Comment on above: Performed By: #### L AB79 ####Process Safety Engineer: HANSRONALD PAULSON ([id number])[facility] [place] (SBHLAB)155 [place] [address] [place] CO2 [Moles/Vol] 37.1 mmol/L High 23.0-30.0 [facility] Comment on above: Performed By: #### L AB79 ####Process Safety Engineer: HANSRONALD PAULSON ([id number])[facility] [place] (SBHLAB)[address] [place] [address] [place] HCO3 (Bld) [Moles/Vol] 34.8 mmol/L High 21.0-30.0 [facility] Comment on above: Performed By: #### L AB79 ####Process Safety Engineer: HANS WALDROPKimESCOBAR ([id number])[facility] [place] (SBHLAB)[address] Hemoglobin (Bld) [Mass/Vol] 13.8 g/dL Normal Screen only [facility] Comment on above: Performed By: #### L AB79 ####Process Safety Engineer: HANS LORENE ([id number])[facility] [place] (SBHLAB)[address] OXYGEN (MM HG) IN VENOUS BLOOD 51.2 mm Hg Normal [facility] Comment on above: Performed By: #### L AB79 ####Process Safety Engineer: HANS LORENE ([id number])[facility] [place] (SBHLAB)[address] OXYGEN SATURATION (%) IN VENOUS BLOOD 82.4 % Normal [facility] Comment on above: Performed By: #### L AB79 ####Process Safety Engineer: HANS ALCANTARESCOBAR ([id number])[facility] [place] (SBHLAB)[address] PCO2, VICKY 74.5 mm Hg High 35.0-53.0 [facility] Comment on above: Performed By: #### L AB79 ####Process Safety Engineer: HANS WALDROPIVELISSE ([id number])[facility] [place] (SB[facility])[address] PH VENOUS 7.287 Low 7.320-7.420 [facility] Comment on above: Performed By: #### L AB79 ####Process Safety Engineer: HANS LORENE ([id number])[facility] [place] (SBHLAB)[address] SOURCE OF OXYGEN Nasal Cannula (LPM) Normal [facility] Comment on above: Performed By: #### L [id number] ####Process Safety Engineer: HANS ALCANTARESCOBAR ([id number])[facility] [place] (SBHLAB)[address] CBC W Auto Differential pane l (Bld)Ordered By: Eh Alves on 01-12-2025 Erythrocyte distribution width (RBC) [Ratio] 13.9 % 11.5 - 15.0 % [facility] Hematocrit (Bld) [Volume fraction] 38.5 % 35.0 - 47.0 % [facility] Hemoglobin (Bld) [Mass/Vol] 11.5 g/dL Low 11.7 - 16.0 g/dL [facility] Interpretation and review of laboratory results Abnormal [facility] MCH (RBC) [Entitic mass] 28.8 pg 26. 0 - 34.0 pg [facility] MCHC (RBC) [Mass/Vol] 29.9 % Low 30.5 - 36.0 % [facility] MCV (RBC) [Entitic vol] 96.5 fL 77.0 - 99.0 fL [facility] Platelet mean volume (Bld) [Entitic vol] 9.9 fL 9.0 - 12.7 fL [facility] Platelets (Bld) [#/Vol] 168 10*3/uL 140 - 440 10*3/uL [facility] RBC (Bld) [#/Vol] 3.99 10*6/uL 3.80 - 5.2 0 10*6/uL [facility] WBC (Bld) [#/Vol] 13.7 10*3/uL High 3.6 - 10.7 10*3/uL [facility] CBC WITH AUTO DIFFERENTIALon 01-12-2025 Erythrocyte distribution width (RBC) [Ratio] 13.9 % Normal 11.5-15.0 [facility] Comment on above: Performed By: #### L [id number], [id number] ####Process Safety Engineer: HANS PAULSON ([id number])[facility] (SBHLAB)[address] Hematocrit (Bld) [Volume fraction] 38.5 % Normal 35.0-47.0 [facility] Comment on above: Performed By: #### L [id number], [id number] ####Process Safety Engineer: HANS PAULSON ([id number])[facility] (SBHLAB)[address] Hemoglobin (Bld) [Mass/Vol] 11.5 g/dL Low 11.7-16.0 [facility] Comment on above: Performed By: #### L [id number], [id number] ####Process Safety Engineer: HANS PAULSON ([id number])[facility] [place] (SBHLAB)[address] MCH (RBC) [Entitic mass] 28.8 pg Normal 26.0-34.0 [facility] Comment on above: Performed By: #### L [id number], [id number] ####Process Safety Engineer: HANS PAULSON ([id number])[facility] (SBHLAB)[address] MCHC 29.9 % Low 30.5-36.0 [facility] Comment on above: Performed By: #### L [id number], [id number] ####Process Safety Engineer: HANS PAULSON ([id number])[facility] [place] (SBHLAB)[address] MCV (RBC) [Entitic vol] 96.5 fL Normal 77.0-99.0 [facility] Comment on above: Performed By: #### L [id number], [id number] ####Process Safety Engineer: HANS PAULSON ([id number])[facility]ITAL[facility] (SBHLAB)[address] Platelet mean volume (Bld) [Entitic vol] 9.9 fL Normal 9.0-12.7 [facility] Comment on above: Performed By: #### L [id number], [id number] ####Process Safety Engineer: HANS PAULSON ([id number])[facility]ITAL[facility] (SBHLAB)[address] Platelets (Bld) [#/Vol] 168 10*3/uL Normal 140-440 [facility] Comment on above: Performed By: #### L [id number], [id number] ####Process Safety Engineer: HANS PAULSON ([id number])[facility]ITAL[facility] [place] (SBHLAB)[address] RBC (Bld) [#/Vol] 3.99 10*6/uL Normal 3.80-5.20 [facility] Comment on above: Performed By: #### L [id number], [id number] ####Process Safety Engineer: HANS PAULSON ([id number])[facility] (SBHLAB)[address] WBC (Bld) [#/Vol] 13.7 10*3/uL High 3.6-10.7 [facility] Comment on above: Performed By: #### L [id number], [id number] ####Process Safety Engineer: HANS PAULSON ([id number])[facility] (SBHLAB)[address] COMPREHENSIVE METABOLIC PANE Cory 01-12-2025 Albumin [Mass/Vol] 3.3 g/dL Normal 3.1-4.5 [facility] Comment on above: Performed By: #### L AB46, LAB17, [id number], [id number] ####Process Safety Engineer: HANS PAULSON ([id number])[facility] (SBHLAB)[address] ALP [Catalytic activity/Vol] 154 U/L High 40-150 [facility] Comment on above: Performed By: #### L AB46, LAB17, [id number], [id number] ####Process Safety Engineer: HANS PAULSON ([id number])[facility] (SBHLAB)[address] ALT [Catalytic activity/Vol] 39 U/L High <30 [facility] Comment on above: Performed By: #### L AB46, LAB17, [id number], [id number] ####Process Safety Engineer: HANS PAULSON ([id number])[facility] (SBHLAB)[address] Anion gap [Moles/Vol] 7 mmol/L Normal 3-13 [facility] Comment on above: Performed By: #### L AB46, LAB17, [id number], [id number] ####Process Safety Engineer: HANS PAULSON ([id number])[facility] [place] (SBHLAB)[address] AST [Catalytic activity/Vol] 33 U/L Normal <34 [facility] Comment on above: Performed By: #### L AB46, LAB17, [id number], [id number] ####Process Safety Engineer: HANS PAULSON ([id number])[facility] (SBHLAB)[address] Bilirubin [Mass/Vol] 0.4 mg/dL Normal <1.2 [facility] Comment on above: Performed By: #### L AB46, LAB17, [id number], [id number] ####Process Safety Engineer: HANS PAULSON ([id number])[facility] (SBHLAB)[address] Calcium [Mass/Vol] 8.9 mg/dL Normal 8.8-10.0 [facility] Comment on above: Performed By: #### L AB46, LAB17, [id number], [id number] ####Process Safety Engineer: HANS PAULSON ([id number])[facility] [place] (SBHLAB)[address] [place] [address] [place] Chloride [Moles/Vol] 101 mmol/L Normal 98-107 [facility] Comment on above: Performed By: #### L AB46, LAB17, [id number], [id number] ####Process Safety Engineer: HANS PAULSON ([id number])[facility] [place] (SBHLAB)[address] [place] [address] [place] CO2 [Moles/Vol] 33 mmol/L High 23-31 [facility] Comment on above: Performed By: #### L AB46, LAB17, [id number], [id number] ####Process Safety Engineer: HANS PAULSON ([id number])[facility] [place] (SBHLAB)[address] Creatinine [Mass/Vol] 0.53 mg/dL Low 0.58-1.12 [facility] Comment on above: Performed By: #### L AB46, LAB17, [id number], [id number] ####Process Safety Engineer: HANS PAULSON ([id number])[facility]ITALNorma [place]aim[facility] (SBHLAB)[address] GLOMERULAR FILTRATION RATE ML/MIN/1.73 SQ M.PREDICTED >90.0 Normal >60.0 [facility] Comment on above: Result Comment: Calc ulation based on the Chronic Kidney Disease Epidemiology Collaboration (CKD-EPI) equation refit without adjustment for race Performed By: #### L AB46, LAB17, [id number], [id number] ####Process Safety Engineer: HANS PAULSON ([id number])[facility]ITALNorma [facility]ENT[facility] ([facility])[address] [place] [address] Glucose [Mass/Vol] 138 mg/dL High 82-115 [facility] Comment on above: Performed By: #### L AB46, LAB17, [id number], [id number] ####Process Safety Engineer: HANS PAULSON ([id number])[facility]ITALNorma [facility]ENT[facility] ([facility])[address] Potassium [Moles/Vol] 4.4 mmol/L Normal 3.5-5.1 [facility] Comment on above: Result Comment: [facility] potassium values may be up to 0.5 mmol/L lower than serum values. Performed By: #### L AB46, LAB17, [id number], [id number] ####Process Safety Engineer: HANS PAULSON ([id number])[facility] (HLAB)[address] Protein [Mass/Vol] 7.1 g/dL Normal 6.4-8.3 [facility] Comment on above: Performed By: #### L [id number], [id number], [id number], [id number] ####Process Safety Engineer: HANS PAULSON ([id number])[facility]ITAL[facility] (SBHLAB)[address] Sodium [Moles/Vol] 141 mmol/L Normal 136-145 [facility] Comment on above: Performed By: #### L [id number], LAB17, [id number], [id number] ####Process Safety Engineer: HANS PAULSON ([id number])[facility] (SBHLAB)[address] Urea nitrogen [Mass/Vol] 16 mg/dL Normal 9-23 [facility] Comment on above: Performed By: #### L [id number], LAB17, [id number], [id number] ####Process Safety Engineer: HANS PAULSON ([id number])[facility] CARLOSPLAINS REGION[facility] MEDICAL CENTERRaimundo (SBHLAB)[address] COVID-19, Flu A/B, and RSV C omboon 01-12-2025 Interpretation and review of laboratory results Normal [facility] Comprehensive metabolic 1998 panelon 01-12-2025 Albumin [Mass/Vol] 3.3 g/dL 3.1 - 4.5 g/dL [facility] ALP [Catalytic activity/Vol] 154 U/L High 40 - 150 U/L [facility] ALT [Catalytic activity/Vol] 39 U/L High [facility] U/L [facility] Anion gap [Moles/Vol] 7 mmol/L 3 - 13 mmol/L [facility] AST [Catalytic activity/Vol] 33 U/L NINF - 34 U/L [facility] Bilirubin [Mass/Vol] 0.4 mg/dL [facility] 1.2 mg/dL [facility] Calcium [Mass/Vol] 8.9 mg/dL 8.8 - 10. 0 mg/dL [facility] Chloride [Moles/Vol] 101 mmol/L 98 - 10 7 mmol/L [facility] CO2 [Moles/Vol] 33 mmol/L High 23 - 31 mmol/L [facility] Creatinine [Mass/Vol] 0.53 mg/dL Low 0.58 - 1.12 mg/dL [facility] GFR/1.73 sq M.predicted (S/P/Bld) [Vol rate/Area] - PINF [facility] Comment on above: Calculation based on the Chronic Kidney Disease Epidemiology Collaboration (CKD-EPI) equation refit without adjustment for race Glucose [Mass/Vol] 138 mg/dL High 82 - 115 mg/dL [facility] Interpretation and review of laboratory results Abnormal [facility] Potassium [Moles/Vol] 4.4 mmol/L 3.5 - 5.1 mmol/L [facility] Comment on above: Plasma potassium martín ues may be up to 0.5 mmol/L lower than serum values. 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 Pt awake and alert and oriented on transport. All belongings with pt. Normal [facility] ED Nursing Note Report to [employer] at this time. All questions answered. Pt Daughter Karishma Updated at this time as well. All questions answered. Normal [facility] ED Nursing Note RT called for NIV placement. Normal [facility] ED Provider Noteon ED Provider Note Normal [facility] ETHANOLon 01-12-2025 ETHANOL IN SER/PLAS- RODRIGUEZ <10 Normal <10 [facility] Comment on above: Result Comment: KYM Gilmore COMMENTS:STORE DETECTIVE depression is seen >100 mg/dL.NOTE: This result is for medical treatment only. Analysis performed using non-forensic procedures. Performed By: #### L [id number], LAB17, [id number], [id number] ####Process Safety Engineer: HANS PAULSON ([id number])[facility] (SBHLAB)[address] [place] [address] ETHYL GLUCURONIDE SCREEN, UR INEon 01-12-2025 ETHYL GLUCURONIDE, URINE Negative Normal Negative [facility] Comment on above: Result Comment: KYM [...] been determined by the clinical laboratories of [facility]. Performed By: #### L [id number] ####Process Safety Engineer: AMELIE ELIZABETH ([id number])[facility] (SACLAB)[address] [place] [address] Ethanol (Bld) [Mass/Vol]on Ethanol [Mass/Vol] mg/dL NINF - 10 mg/dL [facility] Interpretation and review of laboratory results Normal [facility] STORE DETECTIVE depression is se en >100 mg/dL. NOTE: This result is for medical treatment only. Analysis performed using non-forensic procedures. [facility] HIGH SENSITIVITY TROPONIN, S ERIAL BASELINEon 01-12-2025 TROPONIN HS SERIAL BASELINE 13 ng/L Normal <=14 [facility] Comment on above: Result Comment: In i ndividuals presenting with symptoms > 2h, a baseline troponin <= 5 ng/L suggests acutecardiac injury is unlikely and further serial testing is generally not indicated. Performed By: #### L [id number], LAB17, [id number], [id number] ####Process Safety Engineer: HANS PAULSON ([id number])[facility] (SBHLAB)[address] [place] [address] HIGH SENSITIVITY TROPONIN, S ERIAL, SECOND TESTon 01-12-2025 2H TROPONIN HS (SERIAL 2ND TROPONIN) 9 ng/L Normal <=14 [facility] Comment on above: Result Comment: 2h t roponin (2nd troponin) samples collected between 1h 40 min and 2h and 20 min of the baseline collection time can be utilized to interpret delta troponins as per [facility] algorithms. Samples collected outside this timeframe need to be interpreted clinically.Rising or falling troponin delta between 2 ??? 15 ng/L as compared to baseline value requires a 3rd serial troponin Performed By: #### L [id number], [id number], [id number], [id number] ####Process Safety Engineer: HANS PAULSON ([id number])[facility] ([facility] [place] [address] HIGH SENSITIVITY TROPONIN, S ERIAL, THIRD TESTon 01-12-2025 4H TROPONIN HS (SERIAL 3RD TROPONIN) 8 ng/L Normal <=14 [facility] Comment on above: Result Comment: Risi ng or falling troponin delta below 2 ng/L as compared to 2h troponin value suggeststhat acute cardiac injury is unlikely. Performed By: #### L [id number] ####Process Safety Engineer: HANS PAULSON ([id number])[facility] ([facility])[address] [place] [address] LACTIC ACID WITH REFLEXon Lactate [Moles/Vol] 0.8 mmol/L Normal 0.5-2.2 [facility] Comment on above: Performed By: #### L [id number] ####Process Safety Engineer: HANS PAULSON ([id number])[facility] ([facility])[address] [place] [address] LEGIONELLA AND STREPTOCOCCUS URINE ANTIGENon 01-12-2025 LEGIONELLA AND STREPTOCOCCUS URINE ANTIGEN Normal [facility] Comment on above: Performed By: #### L [id number] ####Process Safety Engineer: AMELIE ELIZABETH ([id number])[facility] ([facility])[address] [place] [address] Laboratory - Chemistry and C hemistry - challengeon 01-12-2025 Procalcitonin [Mass/Vol] 0.21 ng/mL High NICHOLAS F - 0.07 ng/mL [facility] Base excess Calc (BldV) [Moles/Vol] 4 mmol/L High -3.0 - 3.0 mmol/L [facility] CO2 (BldV) [Partial pressure] 88.2 mm[Hg] High [facility] CO2 [Moles/Vol] 37.1 mmol/L High 23.0 - 30.0 mmol/L [facility] HCO3 (Bld) [Moles/Vol] 34.4 mmol/L High 21.0 - 30.0 mmol/L [facility] Oxygen (BldV) [Partial pressure] 30 mm[Hg] mm Hg [facility] pH (BldV) 7.209 [pH] Low 7.320 - 7.420 [facility] Base excess Calc (BldV) [Moles/Vol] 2.6 mmol/L -3.0 - 3.0 mmol/L [facility] CO2 (BldV) [Partial pressure] 88.4 mm[Hg] High [facility] CO2 [Moles/Vol] 35.9 mmol/L High 23.0 - 30.0 mmol/L [facility] HCO3 (Bld) [Moles/Vol] 33.2 mmol/L High 21.0 - 30.0 mmol/L [facility] Oxygen (BldV) [Partial pressure] 60.9 mm[Hg] mm Hg [facility] pH (BldV) 7.193 [pH] Low 7.320 - 7.420 [facility] Lactate [Moles/Vol] 0.8 mmol/L 0.5 - 2. 2 mmol/L [facility] Laboratory - Chemistry and C hemistry - challengeOrdered By: Yeny Jorge on 01-12-2025 Base excess Calc (BldV) [Moles/Vol] 5.5 mmol/L High -3.0 - 3.0 mmol/L [facility] CO2 (BldV) [Partial pressure] 74.5 mm[Hg] High [facility] CO2 [Moles/Vol] 37.1 mmol/L High 23.0 - 30.0 mmol/L [facility] HCO3 (Bld) [Moles/Vol] 34.8 mmol/L High 21.0 - 30.0 mmol/L [facility] Oxygen (BldV) [Partial pressure] 51.2 mm[Hg] mm Hg [facility] pH (BldV) 7.287 [pH] Low 7.320 - 7.420 [facility] Laboratory - Drug toxicology on 01-12-2025 Acetaminophen [Mass/Vol] ug/mL Low 10. 0 - 30.0 ug/mL [facility] Salicylates [Mass/Vol] mg/dL Low 15.0 - 30.0 mg/dL [facility] Laboratory - Hematology and Cell countson 01-12-2025 Hemoglobin (Bld) [Mass/Vol] 12.1 g/dL 12.0 - 16.0 g/dl [facility] Hemoglobin (Bld) [Mass/Vol] 12.3 g/dL 12.0 - 16.0 g/dl [facility] Basophilic stippling LM Ql (Bld) Slight Abnormal (none) [facility] Basophils (Bld) [#/Vol] 0.1 10*3/uL 0.0 - 0.2 10*3/uL [facility] Basophils/100 WBC (Bld) 1 % 0 - 2 % [facility] Eosinophils (Bld) [#/Vol] 0.4 10*3/uL 0.0 - 0.5 10*3/uL [facility] Eosinophils/100 WBC (Bld) 3 % 0 - 6 % [facility] Lymphocytes (Bld) [#/Vol] 0.4 10*3/uL Low 1.0 - 4.3 10*3/uL [facility] Lymphocytes/100 WBC (Bld) 3 % Low 15 - 45 % [facility] Monocytes (Bld) [#/Vol] 0.7 10*3/uL 0.0 - 0.9 10*3/uL [facility] Monocytes/100 WBC (Bld) 5 % 5 - 13 % [facility] Neutrophils (Bld) [#/Vol] 12.1 10*3/uL High 1.8 - 7.5 10*3/uL [facility] Ovalocytes LM Ql (Bld) Slight Abnormal (none) [facility] Poikilocytosis LM Ql (Bld) Moderate Abnormal (none) [facility] Polychromasia LM Ql (Bld) Slight Abnormal (none) [facility] RBC morphology finding Nom (Bld) abnormal [facility] Segmented neutrophils/100 WBC (Bld) 88 % High 38 - 82 % [facility] Stomatocytes LM Ql (Bld) Marked Abnormal (none) [facility] Laboratory - Hematology and Cell countsOrdered By: Yeny Jorge on 01-12-2025 Hemoglobin (Bld) [Mass/Vol] 13.8 g/dL 12.0 - 16.0 g/dl [facility] - Microbiology an d Antimicrobial susceptibilityOrdered By: Calvin Brown on 01-12-2025 L. pneumophila 1 Ag IA.rapid Ql (U) Not detected Not Detected [facility] - Microbiology an d Antimicrobial susceptibilityon 01-12-2025 FLUAV RNA MILANA+probe Ql (Resp) Not detected Not Detected [facility] FLUBV RNA MILANA+probe Ql (Resp) Not detected Not Detected [facility] RSV RNA MILANA+probe Ql (Resp) Not detected Not Detected [facility] SARS-CoV-2 (COVID-19) RNA MILANA+probe Ql (Resp) Not detected Not Detected [facility] SARS-CoV-2 (COVID-19) RNA MILANA+probe Ql (Unsp spec) Methodology: real-time, RT-PCR The SARS-CoV-2, Flu A/B, and RSV Combo assay is intended for in vitro diagnostic use under the FDA Emergency Use Authorization (EUA). This test has not been FDA cleared or approved. In compliance with this authorization, please visit www.fda.gov/media/1424 35/download or www.[employer].gov/media/9649 36/download to access the applicable information sheets. [facility] MANUAL DIFFERENTIAL (CELLAVI MICHAEL)on 01-12-2025 BAND NEUTROPHILS TOTAL PER COUNTED LEUKOCYTES BY MANUAL COUNT Normal [facility] Comment on above: Performed By: #### L [id number], [id number] ####Process Safety Engineer: HANS PAULSON ([id number])[facility] ([facility])[address] [place] [address] BASOPHILIC STIPPLING PRESENCE IN BLOOD BY LIGHT MICROSCOPY Slight Abnormal (none) [facility] Comment on above: Performed By: #### L [id number], [id number] ####Process Safety Engineer: HANS PAULSON ([id number])[facility] (SBHLAB)[address] BASOPHILS (10*3/UL) IN BLOOD-CELLAVISION 0.1 10*3/uL Normal 0.0-0.2 [facility] Comment on above: Performed By: #### L [id number], [id number] ####Process Safety Engineer: HANS PAULSON ([id number])[facility] (SBHLAB)[address] BASOPHILS TOTAL PER COUNTED LEUKOCYTES BY MANUAL COUNT 1 Normal [facility] Comment on above: Performed By: #### L [id number], [id number] ####Process Safety Engineer: HANS PAULSON ([id number])[facility] (SBHLAB)[address] [place] [address] [place] BASOPHILS/100 LEUKOCYTES IN BLOOD-CELLAVISION 1 % Normal 0-2 [facility] Comment on above: Performed By: #### L [id number], [id number] ####Process Safety Engineer: HANS PAULSON ([id number])[facility] [place] (SBHLAB)[address] [place] [address] [place] BLASTS TOTAL PER COUNTED LEUKOCYTES BY MANUAL COUNT [facility] Comment on above: Performed By: #### L [id number], [id number] ####Process Safety Engineer: HANS ALCANTARESCOBAR ([id number])[facility] [place] (SBHLAB)[address] [place] [address] [place] EOSINOPHILS (10*3/UL) IN BLOOD-CELLAVISION 0.4 10*3/uL Normal 0.0-0.5 [facility] Comment on above: Performed By: #### L [id number], [id number] ####Process Safety Engineer: HANS PAULSON ([id number])[facility] (SBHLAB)[address] [place] [address] [place] EOSINOPHILS TOTAL PER COUNTED LEUKOCYTES BY MANUAL COUNT 3 High 0-1 [facility] Comment on above: Performed By: #### L [id number], [id number] ####Process Safety Engineer: HANS PAULSON ([id number])[facility] (SBHLAB)[address] [place] [address] [place] EOSINOPHILS/100 LEUKOCYTES IN BLOOD-CELLAVISION 3 % Normal 0-6 [facility] Comment on above: Performed By: #### L [id number], [id number] ####Process Safety Engineer: HANS PAULSON ([id number])[facility] [place] (SBHLAB)[address] [place] [address] [place] LYMPHOCYTES (10*3/UL) IN BLOOD-CELLAVISION 0.4 10*3/uL Low 1.0-4.3 [facility] Comment on above: Performed By: #### L [id number], [id number] ####Process Safety Engineer: HANS PAULSON ([id number])[facility] (SBHLAB)[address] LYMPHOCYTES TOTAL PER COUNTED LEUKOCYTES BY MANUAL COUNT 3 Normal [facility] Comment on above: Performed By: #### L [id number], [id number] ####Process Safety Engineer: HANS ALCANTARESCOBAR ([id number])[facility] [place] (SBHLAB)[address] LYMPHOCYTES/100 LEUKOCYTES IN BLOOD-CELLAVISION 3 % Low 15-45 [facility] Comment on above: Performed By: #### L [id number], [id number] ####Process Safety Engineer: HANS PAULSON ([id number])[facility] [place] (SBHLAB)[address] METAMYELOCYTES TOTAL PER COUNTED LEUKOCYTES BY MANUAL COUNT [facility] Comment on above: Performed By: #### L [id number], [id number] ####Process Safety Engineer: HANS PAULSON ([id number])[facility] [place] (SBHLAB)[address] MONOCYTES (10*3/UL) IN BLOOD-CELLAVISION 0.7 10*3/uL Normal 0.0-0.9 [facility] Comment on above: Performed By: #### L [id number], [id number] ####Process Safety Engineer: HANS PAULSON ([id number])[facility] [place] (SBHLAB)[address] [place] [address] [place] MONOCYTES TOTAL PER COUNTED LEUKOCYTES BY MANUAL COUNT 5 [facility] Comment on above: Performed By: #### L [id number], [id number] ####Process Safety Engineer: HANS PAULSON ([id number])[facility] [place] (SBHLAB)[address] [place] [address] [place] MONOCYTES/100 LEUKOCYTES IN BLOOD-[place] 5 % Normal 5-13 [facility] Comment on above: Performed By: #### L [id number], [id number] ####Process Safety Engineer: HANS PAULSON ([id number])[facility] (SBHLAB)[address] [place] [address] [place] MYELOCYTES COUNTED BY MANUAL COUNT Normal [facility] Comment on above: Performed By: #### L [id number], [id number] ####Process Safety Engineer: HANS PAULSON ([id number])[facility] (SBHLAB)[address] [place] [address] [place] NEUTROPHILS TOTAL PER COUNTED LEUKOCYTES BY MANUAL COUNT 88 Normal [facility] Comment on above: Performed By: #### L [id number], [id number] ####Process Safety Engineer: HANS PAULSON ([id number])[facility] (SBHLAB)[address] [place] [address] [place] OVALOCYTES PRESENCE IN BLOOD BY LIGHT MICROSCOPY Slight Abnormal (none) [facility] Comment on above: Performed By: #### L [id number], [id number] ####Process Safety Engineer: HANS PAULSON ([id number])[facility] (SBHLAB)[address] [place] [address] [place] POIKILOCYTOSIS (PRESENCE) IN BLOOD BY LIGHT MICROSCOPY Moderate Abnormal (none) [facility] Comment on above: Performed By: #### L [id number], [id number] ####Process Safety Engineer: HANS PAULSON ([id number])[facility] (SBHLAB)[address] [place] [address] [place] POLYCHROMASIA IN BLOOD BY LIGHT MICROSCOPY Slight Abnormal (none) [facility] Comment on above: Performed By: #### L [id number], [id number] ####Process Safety Engineer: HANS PAULSON ([id number])[facility] (SBHLAB)[address] [place] [address] [place] PROMYELOCYTES TOTAL PER COUNTED LEUKOCYTES BY MANUAL COUNT Normal [facility] Comment on above: Performed By: #### L [id number], [id number] ####Process Safety Engineer: HANS PAULSON ([id number])[facility] [place] (SBHLAB)[address] [place] [address] [place] RBC MORPHOLOGY IN BLOOD abnormal Normal [facility] Comment on above: Performed By: #### L [id number], [id number] ####Process Safety Engineer: HANS PAULSON ([id number])[facility] [place] (SBHLAB)[address] SEGMENTED NEUTROPHILS (10*3/UL) IN BLOOD-CELLAVISION 12.1 10*3/uL High 1.8-7.5 [facility] Comment on above: Performed By: #### L [id number], [id number] ####Process Safety Engineer: HANS PAULSON ([id number])[facility] [place] (SBHLAB)[address] [place] [address] [place] SEGMENTED NEUTROPHILS/100 LEUKOCYTES-CE 88 % High 38-82 [facility] Comment on above: Performed By: #### L [id number], [id number] ####Process Safety Engineer: HANS PAULSON ([id number])[facility] [place] (SB[facility]AB)[address] [place] [address] [place] STOMATOCYTES IN BLOOD BY LIGHT MICROSCOPY Marked Abnormal (none) [facility] Comment on above: Performed By: #### L [id number], [id number] ####Process Safety Engineer: HANS PAULSON ([id number])[facility] [place] (SB[facility]AB)[address] UNCLASSIFIED CELLS TOTAL PER COUNTED LEUKOCYTES BY MANUAL COUNT [facility] Comment on above: Performed By: #### L [id number], [id number] ####Process Safety Engineer: HANS PAULSON ([id number])[facility] [place] (SB[facility]AB)[address] VARIANT LYMPHOCYTES TOTAL PER COUNTED LEUKOCYTES BY MANUAL COUNT [facility] Comment on above: Performed By: #### L [id number], [id number] ####Process Safety Engineer: HANS PAULSON ([id number])[facility] (SBHLAB)[address] [place] [address] [place] MRSA BY PCRon 01-12-2025 MRSA BY PCR Normal [facility] Comment on above: Performed By: #### L [id number] ####Process Safety Engineer: AMELIE ELIZABETH ([id number])[facility] ([facility])[address] [place] [address] [facility] MRSA DNA MILANA+probe Ql (Nose) on 01-12-2025 Interpretation and review of laboratory results Abnormal [facility] mecA gene Not detected Not Detected [facility] Staphylococcus aureus Detected Abnormal Not Detected [facility] Methicillin-sensitiv e Staphylococcus aureus (MSSA) present; No MRSA detected Negative nasal MRSA PCR has a high negative predictive value for MRSA pneumonia. Consider stopping Vancomycin if no other clinical indication. Positive results do not necessarily indicate active infection with MSSA. Contact Antimicrobial Stewardship for further recommendations. Staphylococcus aureus nasal screen by real-time PCR. This test was modified and its performance characteristics determined by [facility] Microbiology Service. The U. S. Food and Drug Administration has not approved or cleared this test; however, FDA clearance or approval is not currently required for clinical use. The results are not intended to be used as the sole means for clinical diagnosis or patient management decisions. [facility] NT PRO BNPon 01-12-2025 Natriuretic peptide B (Bld) [Mass/Vol] 181 pg/mL Normal <334 [facility] Comment on above: Result Comment: KYM [...] values. Performed By: #### L [id number], LAB17, [id number], [id number] ####Process Safety Engineer: HANS PAULSON ([id number])[facility] (SBHLAB)[address] [place] [address] Natriuretic peptide B [Mass/ Vol]on 01-12-2025 Natriuretic peptide B (Bld) [Mass/Vol] 181 pg/mL NINF - 334 pg/mL [facility] demandmart In patients with suspected acute HF, NT-proBNP [...] may not correlate well with previous values. [employer] No Panel InformationOrdered By: Calvin Brown on 01-12-2025 Interpretation and review of laboratory results Normal [facility] Streptococcus pneumoniae Ag Not detected Not Detected [facility] Methodology: Lateral flow enzyme immunoassay This assay is approved for detection of antigens to Streptococcus pneumoniae and Legionella pneumophila serogroup 1; however, other L. pneumophila serogroups may also be detected. [employer] No Panel InformationOrdered By: Ana Maria Wood on 01-12-2025 ETHYL GLUCURONIDE, URINE Negative Negative [facility] Ethyl Glucuronide allen s been screened by [...] been determined by the clinical laboratories of [facility]. [facility] No Panel Informationon 01-12 Extra Tube Hold for add-ons. [facility] Comment on above: Auto resulted. [facility] 4h Troponin HS (Serial 3rd Troponin) 8 ng/L NINF - 14 ng/L [facility] Comment on above: Rising or falling tr oponin delta below 2 ng/L as compared to 2h troponin value suggests that acute cardiac injury is unlikely. Interpretation and review of laboratory results Normal [facility] Amount Of Oxygen 60 [facility] Interpretation and review of laboratory results Abnormal [facility] Source Of Oxygen Non-Invasive Ventilator [facility] Assessment of oxygenation is best done with an arterial blood gas determination. Reference ranges for pO2, bicarbonate, and base excess are for mixed venous blood. Specimens drawn from a peripheral vein will often have higher values. [facility] Interpretation and review of laboratory results Abnormal [facility] 2h Troponin HS (Serial 2nd Troponin) 9 ng/L NINF - 14 ng/L [facility] Comment on above: 2h troponin (2nd tro ponin) samples collected between 1h 40 min and 2h and 20 min of the baseline collection time can be utilized to interpret delta troponins as per [facility] algorithms. Samples collected outside this timeframe need to be interpreted clinically. Rising or falling troponin delta between 2 15 ng/L as compared to baseline value requires a 3rd serial troponin Interpretation and review of laboratory results Normal [facility] Amount Of Oxygen 60% [facility] alth Interpretation and review of laboratory results Abnormal [facility] Source Of Oxygen BiPAP [facility] alth Assessment of oxygenation is best done with an arterial blood gas determination. Reference ranges for pO2, bicarbonate, and base excess are for mixed venous blood. Specimens drawn from a peripheral vein will often have higher values. [facility] Atypical Lymphocytes Manual [facility] Health Bands Manual [facility] Basophils Manual 1 [facility] alth Blasts Manual [facility] Healt h Eosinophils Manual 3 High 0 - 1 [facility] Interpretation and review of laboratory results Abnormal [facility] Lymphocytes Manual 3 [facility] Metamyelocytes Manual [facility] Monocytes Manual 5 [facility] alth Myelocytes Manual [facility] ealth Neutrophils Manual 88 [facility] Promyelocytes Manual [facility] Unclassified Cells, Manual [facility] Interpretation and review of laboratory results Normal [facility] Troponin HS Serial Baseline 13 ng/L NINF - 14 ng/L [facility] Comment on above: In individuals prese nting with symptoms > 2h, a baseline troponin <= 5 ng/L suggests acute cardiac injury is unlikely and further serial testing is generally not indicated. [facility] Interpretation and review of laboratory results Normal [facility] P [place] 45 degrees [facility] DE Interval 155 ms [facility] QRS [place] -38 degrees [facility] QRSD Interval 100 ms [facility] QT Interval 325 ms [facility] QTC Interval 439 ms [facility] T Wave [place] 21 degrees [facility] Sinus tachycardia Left ventricular hypertrophy Inferior infarct, old no acute change from 07/30/24 Electronically Signed On 01-12-2025 10:02:34 EDT by Freddy Linder CV Freddy Frias MD - 01/12/2025 IMPRESSION: Sinus tachycardia Left ventricular hypertrophy Inferior infarct, old no acute change from 07/30/24 Electronically Signed On 01-12-2025 10:02:34 EDT by Freddy Linder [facility] No Panel InformationOrdered By: Yeny Jorge on 01-12-2025 Amount Of Oxygen 3 [facility] alth Interpretation and review of laboratory results Abnormal [facility] Source Of Oxygen Nasal Cannula (LPM) [facility] Assessment of oxygenation is best done with an arterial blood gas determination. Reference ranges for pO2, bicarbonate, and base excess are for mixed venous blood. Specimens drawn from a peripheral vein will often have higher values. [facility] PROCALCITONIN TESTon 025 PROCALCITONIN 0.21 ng/mL High <0.07 [facility] Comment on above: Result Comment: KYM Gilmore COMMENTS:PCT <0.50 = Low risk of severe sepsis and/or septic shock.PCT >2.00 = High risk of severe sepsis and/or septic shock. Performed By: #### L [id number], [id number], LAB34, [id number] ####Process Safety Engineer: HANS PAULSON ([id number])[facility] ([facility])[address] [place] [address] Procalcitonin [Mass/Vol]on Interpretation and review of laboratory results Abnormal [facility] PCT <0.50 = Low risk of severe sepsis and/or septic shock. PCT >2.00 = High risk of severe sepsis and/or septic shock. [facility] RESPIRATORY PATHOGENS PANEL BY PCRon 01-12-2025 RESPIRATORY PATHOGENS PANEL BY PCR Normal [facility] Comment on above: Performed By: #### L [id number] ####Process Safety Engineer: AMELIE ELIZABETH ([id number])[facility] ([facility])[address] [place] [address] Respiratory pathogens DNA an d RNA panel MILANA+non-probe (Nph)on 01-12-2025 Adenovirus Not detected Not Detected [facility] B. pertussis toxin promoter region MILANA+non-probe Ql (Nph) Not detected Not Detected [facility] Bordetella parapertussis Not detected Not Detec tommy [facility] C. pneumoniae DNA MILANA+non-probe Ql (Lower resp) Not detected Not Detected [facility] Coronavirus 229E Not detected Not Detected [facility] Coronavirus HKU1 Not detected Not Detected [facility] Coronavirus NL63 Not detected Not Detected [facility] Coronavirus OC43 Not detected Not Detected [facility] FLUAV RNA MILANA+non-probe Ql (Nph) Not detected Not Detected [facility] FLUBV RNA MILANA+non-probe Ql (Nph) Not detected Not Detected [facility] Human Metapneumovirus Not detected Not Detected [facility] Human Rhinovirus/Enterovirus Not detected Not Detected [facility] Interpretation and review of laboratory results Normal [facility] Mycoplasma pneumoniae Not detected Not Detected [facility] Parainfluenza 1 Not detected Not Detected [facility] Parainfluenza 2 Not detected Not Detected [facility] Parainfluenza 3 Not detected Not Detected [facility] Parainfluenza 4 Not detected Not Detected [facility] Respiratory Syncytial Virus Not detected Not Detected [facility] SARS-CoV-2 (COVID-19) RNA MILANA+non-probe Ql (Nph) Not detected Not Detected [facility] Methodology: Multipl ex PCR [facility] SALICYLATEon 01-12-2025 SALICYLATES <5.0 Low 15.0-30.0 [facility] Comment on above: Performed By: #### L [id number], LAB43, LAB34, [id number] ####Process Safety Engineer: HANS WALDROPKimESCOBAR ([id number])[facility] ([facility])[address] [place] [address] SARS-COV-2, FLU A/B, AND RSV COMBOon 01-12-2025 SARS-CoV-2 (COVID-19) RNA MILANA+probe Ql (Unsp spec) Normal [facility] Comment on above: Performed By: #### L [id number] ####Process Safety Engineer: HANS WALDROPKimESCOBAR ([id number])[facility] ([facility])[address] [place] [address] Vital signson 01-12-2025 Oxygen saturation in Venous blood 50.1 % [facility] Oxygen saturation in Venous blood 85.8 % [facility] Heart rate 110 /min bpm [facility] Vital signsOrdered By: Carla Jorge on 01-12-2025 Oxygen saturation in Venous blood 82.4 % [facility] XR Chest Single viewon 01-12 No acute cardiopulmonary abnormality is identified. Report Dictated on Electronically Signed By: Melisa Vallejo MD Electronically Signed Date/Time: 01/12/2025 10:01 AM [facility] Patient Name: GONZALO DELUCA : 1955 [facility]#: [id number] Exam Date/Time: 01/12/2025 09:50 Procedure: XR CHEST [...] catheter tip projects over the upper SVC. [facility] Melisa Vallejo M D - 01/12/2025 Patient Name: GONZALO DELUCA : 1955 [facility]#: [id number] Exam Date/Time: 01/12/2025 09:50 Procedure: XR CHEST [...] Electronically Signed Date/Time: 01/12/2025 10:01 AM EDT [facility] Radiology Study observation (narrative) [facility] XR Chest Single viewOrdered By: Melisa Vallejo on 01-12-2025 [facility] Work Phone: 36on 12-28-2024 36 Normal [facility] Progress Noteon 12-28-2024 Progress Note Normal [facility] 36on 12-18-2024 36 We have been unable to reach your patient to schedule their testing. Test Name: Complete PFT pre and post bronchodilator with FENO Patient canceled 10/24/24 and 12/04/24 Normal [facility] Anion gap in Serum or Plasma Ordered By: Jameson Corral on 12-12-2024 Anion gap [Moles/Vol] 9 mmol/L 5-15 [facility] BUN/creatinine ratioOrdered By: Jameson Corral on 12-12-2024 Urea nitrogen/Creatinine [Mass ratio] 22.1 mg/mg High 10-20 [facility] Basic Metabolic Profile (BMP )on 12-12-2024 BUN/CRE 22.1 RATIO High 10-20 [facility] Comment on above: Order Comment: 311-1 Performed By: #### L 500.2500, L100.0500 #### [facility] [address] [place], [address] Calcium [Mass/Vol] 8.6 mg/dL Normal 7.6-11.0 [facility] Comment on above: Order Comment: 311-1 Performed By: #### L 500.2500, L100.0500 #### [facility] [address] [place], [address] Chloride [Moles/Vol] 98 mmol/L Normal 98-108 [facility] Comment on above: Order Comment: 311-1 Performed By: #### L 500.2500, L100.0500 #### [facility] [address] [place], [address] CO2 [Moles/Vol] 30.3 mmol/L Normal 21.0-32.0 [facility] Comment on above: Order Comment: 311-1 Performed By: #### L 500.2500, L100.0500 #### [facility] [address] [place], [address] Creatinine [Mass/Vol] 0.60 mg/dL Low 0.70-1.20 [facility] Comment on above: Order Comment: 311-1 Performed By: #### L 500.2500, L100.0500 #### [facility] [address] [place], [address] GAP 9 Normal 5-15 [facility] Comment on above: Order Comment: 311-1 Performed By: #### L 500.2500, L100.0500 #### [facility] [address] [place], [address] GFR/1.73 sq M.predicted among non-blacks MDRD (S/P/Bld) [Vol rate/Area] 98 mL/min/{1.73_m2} Normal >60 [facility] Comment on above: Order Comment: 311-1 Result Comment: mL/m in/1.73m2 CKD-EPI Creatinine Equation (2020) Performed By: #### L 500.2500, L100.0500 #### [facility] [address] [place], [address] Glucose [Mass/Vol] 99 mg/dL Normal 70-99 [facility] Comment on above: Order Comment: 311-1 Performed By: #### L 500.2500, L100.0500 #### [facility] [address] [place], [address] Potassium [Moles/Vol] 4.3 mmol/L Normal 3.3-5.1 [facility] Comment on above: Order Comment: 311-1 Performed By: #### L 500.2500, L100.0500 #### [facility] [address] [place], [address] Sodium [Moles/Vol] 137 mmol/L Normal 133-145 [facility] Comment on above: Order Comment: 311-1 Performed By: #### L 500.2500, L100.0500 #### [facility] [address] [place], [address] Urea nitrogen [Mass/Vol] 13 mg/dL Normal 4-19 [facility] Comment on above: Order Comment: 311-1 Performed By: #### L 500.2500, L100.0500 #### [facility] [address] [place], [address] CBC-Complete Blood Cnt No Di ffon 12-12-2024 Erythrocyte distribution width (RBC) [Ratio] 13.3 % Normal 11.6-14.6 [facility] Comment on above: Order Comment: 311-1 Performed By: #### L 500.2500, L100.0500 #### [facility] [address] [place], [address] Hematocrit (Bld) [Volume fraction] 38.6 % Normal 37-47 [facility] Comment on above: Order Comment: 311-1 Performed By: #### L 500.2500, L100.0500 #### [facility] [address] [place], [address] Hemoglobin (Bld) [Mass/Vol] 11.8 g/dL Low 12.0-15.0 [facility] Comment on above: Order Comment: 311-1 Performed By: #### L 500.2500, L100.0500 #### [facility] [address] [place], [address] MCH (RBC) [Entitic mass] 29.3 pg Normal 27.0-32.0 [facility] Comment on above: Order Comment: 311-1 Performed By: #### L 500.2500, L100.0500 #### [facility] [address] [place], [address] MCHC (RBC) [Mass/Vol] 30.6 g/dL Low 32-36 [facility] Comment on above: Order Comment: 311-1 Performed By: #### L 500.2500, L100.0500 #### [facility] [address] [place], [address] MCV (RBC) [Entitic vol] 95.8 fL Normal 81-99 [facility] Comment on above: Order Comment: 311-1 Performed By: #### L 500.2500, L100.0500 #### [facility] [address] [place], [address] Platelet mean volume (Bld) [Entitic vol] 10.4 fL Normal 6.2-12.0 [facility] Comment on above: Order Comment: 311-1 Performed By: #### L 500.2500, L100.0500 #### [facility] [address] [place], [address] Platelets (Bld) [#/Vol] 189 10*3/uL Normal 150-450 [facility] Comment on above: Order Comment: 311-1 Performed By: #### L 500.2500, L100.0500 #### [facility] [address] [place], [address] RBC (Bld) [#/Vol] 4.03 10*6/uL Low 4.2-5.4 [facility] Comment on above: Order Comment: 311-1 Performed By: #### L 500.2500, L100.0500 #### [facility] [address] [place], [address] RDW SD 47.2 fl High 35.1-43.9 [facility] Comment on above: Order Comment: 311-1 Performed By: #### L 500.2500, L100.0500 #### [facility] [address] [place], [address] WBC (Bld) [#/Vol] 7.9 10*3/uL Normal 4.4-11.0 [facility] Comment on above: Order Comment: 311-1 Performed By: #### L 500.2500, L100.0500 #### [facility] [address] [place], [address] Carbon dioxide, total [Moles /volume] in Central venous bloodOrdered By: Jameson Corral on 12-12-2024 CO2 [Moles/Vol] 30.3 mmol/L 21.0-32.0 [facility] Chloride assayOrdered By: Zack Jeong on 12-12-2024 Chloride [Moles/Vol] 98 mmol/L 98-108 [facility] Erythrocyte distribution wid th ratioOrdered By: Jameson Corral on 12-12-2024 Erythrocyte distribution width (RBC) [Ratio] 13.3 % 11.6-14.6 [facility] Erythrocyte distribution wid th standard deviationOrdered By: Jameson Corral on 12-12-2024 Erythrocyte distribution width (RBC) [Ratio] 47.2 fl High 35.1-43.9 [facility] Glomerular filtration rate ( GFR) estimation/1.73 sq m using serum, plasma, or whole bOrdered By: Jameson Corral on 12-12-2024 GFR/1.73 sq M.predicted among non-blacks MDRD (S/P/Bld) [Vol rate/Area] 98 mL/min/{1.73_m2} >60 [facility] Comment on above: mL/min/1.73m2 CKD-EP I Creatinine Equation (2020) Hematocrit Auto (Bld) [Volum e fraction]Ordered By: Jameson Corral on 12-12-2024 Hematocrit (Bld) [Volume fraction] 38.6 % 37-47 [facility] Hemoglobin measurementOrdere d By: Jameson Corral on 12-12-2024 Hemoglobin (Bld) [Mass/Vol] 11.8 g/dL Low 12.0-15.0 [facility] MCV (mean corpuscular volume ) determinationOrdered By: Jameson Corral on 12-12-2024 MCV (RBC) [Entitic vol] 95.8 fL 81-99 [facility] Mean corpuscular hemoglobin (MCH) determinationOrdered By: Jameson Corral on 12-12-2024 MCH (RBC) [Entitic mass] 29.3 pg 27.0-32.0 [facility] Mean corpuscular hemoglobin concentration (MCHC) determinationOrdered By: Jameson Corral on 12-12-2024 MCHC (RBC) [Mass/Vol] 30.6 g/dL Low 32-36 [facility] Mean platelet volume determi nationOrdered By: Jameson Corral on 12-12-2024 Platelet mean volume (Bld) [Entitic vol] 10.4 fL 6.2-12.0 [facility] Platelet countOrdered By: Zack Jeong on 12-12-2024 Platelets (Bld) [#/Vol] 189 10*3/uL 150-450 [facility] Potassium measurement (mass/ volume)Ordered By: Jameson Corral on 12-12-2024 Potassium (Unsp spec) [Mass/Vol] 4.3 mmol/L 3.3-5.1 [facility] RBC Auto (Bld) [#/Vol]Ordere d By: Jameson Corral on 12-12-2024 RBC (Bld) [#/Vol] 4.03 10*6/uL Low 4.2-5.4 [facility] Serum creatinine measurement (mass/volume)Ordered By: Jameson Corral on 12-12-2024 Creatinine [Mass/Vol] 0.60 mg/dL Low 0.70-1.20 [facility] Serum glucose measurement (m ass/volume)Ordered By: Jameson Corral on 12-12-2024 Glucose [Mass/Vol] 99 mg/dL 70-99 [facility] Serum or plasma calcium nessa urement (mass/volume)Ordered By: Jameson Corral on 12-12-2024 Calcium [Mass/Vol] 8.6 mg/dL 7.6-11.0 [facility] Serum or plasma urea nitroge n measurement (mass/volume)Ordered By: Jameson Corral on 12-12-2024 Urea nitrogen [Mass/Vol] 13 mg/dL 4-19 [facility] Sodium levelOrdered By: Fabian Corral on 12-12-2024 Sodium [Moles/Vol] 137 mmol/L 133-145 [facility] White blood cell (WBC) count Ordered By: Jameson Corral on 12-12-2024 WBC (Bld) [#/Vol] 7.9 10*3/uL 4.4-11.0 [facility] CT CHEST WO IV CONTRASTon CT CHEST WO IV CONTRAST Normal [facility] Anion gap in Serum or Plasma Ordered By: Jameson Corral on 10-01-2024 Anion gap [Moles/Vol] 6 mmol/L 5- [facility] BUN/creatinine ratioOrdered By: Jameson Corral on 10-01-2024 Urea nitrogen/Creatinine [Mass ratio] 33.1 mg/mg High 01-07 [facility] Basic Metabolic Profile (BMP )on 10-01-2024 BUN/CRE 33.1 RATIO High 01-07 [facility] Comment on above: Order Comment: 311.1 Performed By: #### L 400.0001, #### [facility] [address] [place], [address] Calcium [Mass/Vol] 9.3 mg/dL Normal 7.6-11.0 [facility] Comment on above: Order Comment: 311.1 Performed By: #### L 400.0001, #### [facility] [address] [place], [address] Chloride [Moles/Vol] 101 mmol/L Normal 98-108 [facility] Comment on above: Order Comment: 311.1 Performed By: #### L 400.0001, #### [facility] [address] [place], [address] CO2 [Moles/Vol] 34.9 mmol/L High 21.0-32.0 [facility] Comment on above: Order Comment: 311.1 Performed By: #### L 400.0001, #### [facility] [address] [place], [address] Creatinine [Mass/Vol] 0.54 mg/dL Low 0.70-1.20 [facility] Comment on above: Order Comment: 311.1 Performed By: #### L 400.0001, #### [facility] [address] [place], [address] GAP 6 Normal 5-15 [facility] Comment on above: Order Comment: 311.1 Performed By: #### L 400.0001, #### [facility] [address] [place], [address] GFR/1.73 sq M.predicted among non-blacks MDRD (S/P/Bld) [Vol rate/Area] 101 mL/min/{1.73_m2} Normal >60 [facility] Comment on above: Order Comment: 311.1 Result Comment: mL/m in/1.73m2 CKD-EPI Creatinine Equation (2020) Performed By: #### L 400.0001, #### [facility] [address] [place], [address] Glucose [Mass/Vol] 80 mg/dL Normal 70-99 [facility] Comment on above: Order Comment: 311.1 Performed By: #### L 400.0001, #### [facility] [address] [place], [address] Potassium [Moles/Vol] 4.6 mmol/L Normal 3.3-5.1 [facility] Comment on above: Order Comment: 311.1 Performed By: #### L 400.0001, #### [facility] [address] [place], [address] Sodium [Moles/Vol] 142 mmol/L Normal 133-145 [facility] Comment on above: Order Comment: 311.1 Performed By: #### L 400.0001, #### [facility] [address] [place], [address] Urea nitrogen [Mass/Vol] 18 mg/dL Normal 4-19 [facility] Comment on above: Order Comment: 311.1 Performed By: #### L 400.0001, #### [facility] [address] [place], [address] CBC-Complete Blood Cnt No Di ffon 10-01-2024 Erythrocyte distribution width (RBC) [Ratio] 13.2 % Normal 11.6-14.6 [facility] Comment on above: Order Comment: 311.1 Performed By: #### L 400.0001, #### [facility] [address] [place], [address] Hematocrit (Bld) [Volume fraction] 37.6 % Normal 37-47 [facility] Comment on above: Order Comment: 311.1 Performed By: #### L 400.0001, #### [facility] [address] [place], [address] Hemoglobin (Bld) [Mass/Vol] 11.4 g/dL Low 12.0-15.0 [facility] Comment on above: Order Comment: 311.1 Performed By: #### L 400.0001, #### [facility] [address] [place], [address] MCH (RBC) [Entitic mass] 30.2 pg Normal 27.0-32.0 [facility] Comment on above: Order Comment: 311.1 Performed By: #### L 400.0001, #### [facility] [address] [place], [address] MCHC (RBC) [Mass/Vol] 30.3 g/dL Low 32-36 [facility] Comment on above: Order Comment: 311.1 Performed By: #### L 400.0001, #### [facility] [address] [place], [address] MCV (RBC) [Entitic vol] 99.7 fL High 81-99 [facility] Comment on above: Order Comment: 311.1 Performed By: #### L 400.0001, #### [facility] [address] [place], [address] Platelet mean volume (Bld) [Entitic vol] 9.8 fL Normal 6.2-12.0 [facility] Comment on above: Order Comment: 311.1 Performed By: #### L 400.0001, #### [facility] [address] [place], [address] Platelets (Bld) [#/Vol] 248 10*3/uL Normal 150-450 [facility] Comment on above: Order Comment: 311.1 Performed By: #### L 400.0001, .2199 #### [facility] [address] [place], [address] RBC (Bld) [#/Vol] 3.77 10*6/uL Low 4.2-5.4 [facility] Comment on above: Order Comment: 311.1 Performed By: #### L 400.0001, .2199 #### [facility] [address] [place], [address] RDW SD 48.3 fl High 35.1-43.9 [facility] Comment on above: Order Comment: 311.1 Performed By: #### L 400.0001, .2199 #### [facility] [address] [place], [address] WBC (Bld) [#/Vol] 6.3 10*3/uL Normal 4.4-11.0 [facility] Comment on above: Order Comment: 311.1 Performed By: #### L 400.0001, #### [facility] [address] [place], [address] Carbon dioxide, total [Moles /volume] in Central venous bloodOrdered By: Jameson Corral on 10-01-2024 CO2 [Moles/Vol] 34.9 mmol/L High 21.0-32.0 [facility] Chloride assayOrdered By: Zack Jeong on 10-01-2024 Chloride [Moles/Vol] 101 mmol/L 98-108 [facility] Erythrocyte distribution wid th ratioOrdered By: Jameson Corral on 10-01-2024 Erythrocyte distribution width (RBC) [Ratio] 13.2 % 11.6-14.6 [facility] Erythrocyte distribution wid th standard deviationOrdered By: Jameson Corral on 10-01-2024 Erythrocyte distribution width (RBC) [Ratio] 48.3 fl High 35.1-43.9 [facility] Glomerular filtration rate ( GFR) estimation/1.73 sq m using serum, plasma, or whole bOrdered By: Jameson Corral on 10-01-2024 GFR/1.73 sq M.predicted among non-blacks MDRD (S/P/Bld) [Vol rate/Area] 101 mL/min/{1.73_m2} >60 [facility] Comment on above: mL/min/1.73m2 CKD-EP I Creatinine Equation (2020) Hematocrit Auto (Bld) [Volum e fraction]Ordered By: Jameson Corral on 10-01-2024 Hematocrit (Bld) [Volume fraction] 37.6 % 37-47 [facility] Hemoglobin measurementOrdere d By: Jameson Corral on 10-01-2024 Hemoglobin (Bld) [Mass/Vol] 11.4 g/dL Low 12.0-15.0 [facility] MCV (mean corpuscular volume ) determinationOrdered By: Jameson Corral on 10-01-2024 MCV (RBC) [Entitic vol] 99.7 fL High 81-99 [facility] Mean corpuscular hemoglobin (MCH) determinationOrdered By: Jameson Corral on 10-01-2024 MCH (RBC) [Entitic mass] 30.2 pg 27.0-32.0 [facility] Mean corpuscular hemoglobin concentration (MCHC) determinationOrdered By: Jameson Corral on 10-01-2024 MCHC (RBC) [Mass/Vol] 30.3 g/dL Low 32-36 [facility] Mean platelet volume determi nationOrdered By: Jameson Corral on 10-01-2024 Platelet mean volume (Bld) [Entitic vol] 9.8 fL 6.2-12.0 [facility] Platelet countOrdered By: Zack Jeong on 10-01-2024 Platelets (Bld) [#/Vol] 248 10*3/uL 150-450 [facility] Potassium measurement (mass/ volume)Ordered By: Jameson Corral on 10-01-2024 Potassium (Unsp spec) [Mass/Vol] 4.6 mmol/L 3.3-5.1 [facility] RBC Auto (Bld) [#/Vol]Ordere d By: Jameson Corral on 10-01-2024 RBC (Bld) [#/Vol] 3.77 10*6/uL Low 4.2-5.4 [facility] Serum creatinine measurement (mass/volume)Ordered By: Jameson Corral on 10-01-2024 Creatinine [Mass/Vol] 0.54 mg/dL Low 0.70-1.20 [facility] Serum glucose measurement (m ass/volume)Ordered By: Jameson Corral on 10-01-2024 Glucose [Mass/Vol] 80 mg/dL 70-99 [facility] Serum or plasma calcium nessa urement (mass/volume)Ordered By: Jameson Corral on 10-01-2024 Calcium [Mass/Vol] 9.3 mg/dL 7.6-11.0 [facility] Serum or plasma urea nitroge n measurement (mass/volume)Ordered By: Jameson Corral on 10-01-2024 Urea nitrogen [Mass/Vol] 18 mg/dL 4-19 [facility] Sodium levelOrdered By: Fabian Corral on 10-01-2024 Sodium [Moles/Vol] 142 mmol/L 133-145 [facility] White blood cell (WBC) count Ordered By: Jameson Corral on 10-01-2024 WBC (Bld) [#/Vol] 6.3 10*3/uL 4.4-11.0 [facility] Urine Cultureon 09-20-2024 URC UNKNOWN METHOD OF COLLECTION Mixed Gram Pos Gram Neg Org [place] Count 11,000-25,000 MIXC Mixed contaminants. Submit a new specimen if indicated. Normal [facility] Comment on above: Performed By: #### L 400.0001, M1 #### [facility] [address] [place], [address] Urinalysis, Completeon 09-18 CA OX CRYSTAL 1+ /hpf Normal [facility] Comment on above: Order Comment: UNKNO WN METHOD OF COLLECTION CLEAN CATCH Performed By: #### L 400.0001, M1.0 #### [facility] [address] [place], [address] BACTERIA 0 SEEN Normal None Seen [facility] Comment on above: Order Comment: UNKNO WN METHOD OF COLLECTION CLEAN CATCH Performed By: #### L 400.0001, M100.2200 #### [facility] [address] [place], [address] EPI,SQUAMOUS 0 SEEN Normal 5-10 [facility] Comment on above: Order Comment: UNKNO WN METHOD OF COLLECTION CLEAN CATCH Performed By: #### L 400.0001, M100.2200 #### [facility] [address] [place], [address] Mucus Ql (Urine sed) 0 SEEN Normal [facility] [place] Comment on above: Order Comment: UNKNO WN METHOD OF COLLECTION CLEAN CATCH Performed By: #### L 400.0001, M100.2200 #### [facility] [address] [place], [address] RBC 0 SEEN Normal 0-5 [facility] Comment on above: Order Comment: UNKNO WN METHOD OF COLLECTION CLEAN CATCH Performed By: #### L 400.0001, M100.0 #### [facility] [address] [place], [address] WBC 0 SEEN Normal 0-5 [facility] Comment on above: Order Comment: UNKNO WN METHOD OF COLLECTION CLEAN CATCH Performed By: #### L 400.0001, M100.0 #### [facility] [address] [place], [address] Anion gap in Serum or Plasma Ordered By: Jameson Corral on 09-17-2024 Anion gap [Moles/Vol] 7 mmol/L 5-15 [facility] BUN/creatinine ratioOrdered By: Jameson Corral on 09-17-2024 Urea nitrogen/Creatinine [Mass ratio] 26.7 mg/mg High - [facility] Basic Metabolic Profile (BMP )on 09-17-2024 BUN/CRE 26.7 RATIO High 01-07 [facility] Comment on above: Order Comment: 311-2 Performed By: #### L 100.0500, L500.2500 #### [facility] [address] [place], [address] Calcium [Mass/Vol] 8.9 mg/dL Normal 7.6-11.0 [facility] Comment on above: Order Comment: 311-2 Performed By: #### L 100.0500, L500.2500 #### [facility] [address] [place], [address] Chloride [Moles/Vol] 103 mmol/L Normal 98-108 [facility] [place] Comment on above: Order Comment: 311-2 Performed By: #### L 100.0500, L500.2500 #### [facility] [address] [place], [address] CO2 [Moles/Vol] 32.9 mmol/L High 21.0-32.0 [facility] Comment on above: Order Comment: 311-2 Performed By: #### L 100.0500, L500.2500 #### [facility] [address] [place], [address] Creatinine [Mass/Vol] 0.56 mg/dL Low 0.70-1.20 [facility] Comment on above: Order Comment: 311-2 Performed By: #### L 100.0500, L500.2500 #### [facility] [address] [place], [address] GAP 7 Normal 5-15 [facility] Comment on above: Order Comment: 311-2 Performed By: #### L 100.0500, L500.2500 #### [facility] [address] [place], [address] GFR/1.73 sq M.predicted among non-blacks MDRD (S/P/Bld) [Vol rate/Area] 100 mL/min/{1.73_m2} Normal >60 [facility] Comment on above: Order Comment: 311-2 Result Comment: mL/m in/1.73m2 CKD-EPI Creatinine Equation (2020) Performed By: #### L 100.0500, L500.2500 #### [facility] [address] [place], [address] Glucose [Mass/Vol] 80 mg/dL Normal 70-99 [facility] Comment on above: Order Comment: 311-2 Performed By: #### L 100.0500, L500.2500 #### [facility] [address] [place], [address] Potassium [Moles/Vol] 4.1 mmol/L Normal 3.3-5.1 [facility] Comment on above: Order Comment: 311-2 Performed By: #### L 100.0500, L500.2500 #### [facility] [address] [place], [address] Sodium [Moles/Vol] 143 mmol/L Normal 133-145 [facility] Comment on above: Order Comment: 311-2 Performed By: #### L 100.0500, L500.2500 #### [facility] [address] [place], [address] Urea nitrogen [Mass/Vol] 15 mg/dL Normal 4-19 [facility] Comment on above: Order Comment: 311-2 Performed By: #### L 100.0500, L500.2500 #### [facility] [address] [place], [address] Bilirubin Test strip Ql (U)O rdered By: Jameson Corral on 09-17-2024 Bilirubin Ql (U) Negative Negative [facility] CBC-Complete Blood Cnt No Di ffon 09-17-2024 Erythrocyte distribution width (RBC) [Ratio] 13.7 % Normal 11.6-14.6 [facility] Comment on above: Order Comment: 311-2 Performed By: #### L 100.0500, L500.2500 #### [facility] [address] [place], [address] Hematocrit (Bld) [Volume fraction] 35.4 % Low 37-47 [facility] Comment on above: Order Comment: 311-2 Performed By: #### L 100.0500, L500.2500 #### [facility] [address] [place], [address] Hemoglobin (Bld) [Mass/Vol] 10.7 g/dL Low 12.0-15.0 [facility] Comment on above: Order Comment: 311-2 Performed By: #### L 100.0500, L500.2500 #### [facility] [address] [place], [address] MCH (RBC) [Entitic mass] 30.9 pg Normal 27.0-32.0 [facility] Comment on above: Order Comment: 311-2 Performed By: #### L 100.0500, L500.2500 #### [facility] [address] [place], [address] MCHC (RBC) [Mass/Vol] 30.2 g/dL Low 32-36 [facility] Comment on above: Order Comment: 311-2 Performed By: #### L 100.0500, L500.2500 #### [facility] [address] [place], [address] MCV (RBC) [Entitic vol] 102.3 fL High 81-99 [facility] Comment on above: Order Comment: 311-2 Performed By: #### L 100.0500, L500.2500 #### [facility] [address] [place], [address] Platelet mean volume (Bld) [Entitic vol] 9.9 fL Normal 6.2-12.0 [facility] Comment on above: Order Comment: 311-2 Performed By: #### L 100.0500, L500.2500 #### [facility] [address] [place], [address] Platelets (Bld) [#/Vol] 246 10*3/uL Normal 150-450 [facility] Comment on above: Order Comment: 311-2 Performed By: #### L 100.0500, L500.2500 #### [facility] [address] [place], [address] RBC (Bld) [#/Vol] 3.46 10*6/uL Low 4.2-5.4 [facility] Comment on above: Order Comment: 311-2 Performed By: #### L 100.0500, L500.2500 #### [facility] [address] [place], [address] RDW SD 52.1 fl High 35.1-43.9 [facility] Comment on above: Order Comment: 311-2 Performed By: #### L 100.0500, L500.2500 #### [facility] [address] [place], [address] WBC (Bld) [#/Vol] 8.0 10*3/uL Normal 4.4-11.0 [facility] Comment on above: Order Comment: 311-2 Performed By: #### L 100.0500, L500.2500 #### [facility] [address] [place], [address] Calcium oxalate crystals det ection in urine sediment by light microscopyOrdered By: Jameson Corral on 09-17-2024 Calcium oxalate crystals LM Ql (Urine sed) 1+ /hpf [facility] Carbon dioxide, total [Moles /volume] in Central venous bloodOrdered By: Jameson Corral on 09-17-2024 CO2 [Moles/Vol] 32.9 mmol/L High 21.0-32.0 [facility] Chloride assayOrdered By: Zack Jeong on 09-17-2024 Chloride [Moles/Vol] 103 mmol/L 98-108 [facility] [place] Erythrocyte distribution wid th ratioOrdered By: Jameson Corral on 09-17-2024 Erythrocyte distribution width (RBC) [Ratio] 13.7 % 11.6-14.6 [facility] Erythrocyte distribution wid th standard deviationOrdered By: Jameson Corral on 09-17-2024 Erythrocyte distribution width (RBC) [Ratio] 52.1 fl High 35.1-43.9 [facility] Glomerular filtration rate ( GFR) estimation/1.73 sq m using serum, plasma, or whole bOrdered By: Jameson Corral on 09-17-2024 GFR/1.73 sq M.predicted among non-blacks MDRD (S/P/Bld) [Vol rate/Area] 100 mL/min/{1.73_m2} >60 [facility] Comment on above: mL/min/1.73m2 CKD-EP I Creatinine Equation (2020) Hematocrit Auto (Bld) [Volum e fraction]Ordered By: Jameson Corral on 09-17-2024 Hematocrit (Bld) [Volume fraction] 35.4 % Low 37-47 [facility] Hemoglobin measurementOrdere d By: Jameson Corral on 09-17-2024 Hemoglobin (Bld) [Mass/Vol] 10.7 g/dL Low 12.0-15.0 [facility] Ketones Test strip Ql (U)Ord ered By: Jameson Corral on 09-17-2024 Ketones Ql (U) Negative Negative [facility] MCV (mean corpuscular volume ) determinationOrdered By: Jameson Corral on 09-17-2024 MCV (RBC) [Entitic vol] 102.3 fL High 81-99 [facility] Mean corpuscular hemoglobin (MCH) determinationOrdered By: Jameson Corral on 09-17-2024 MCH (RBC) [Entitic mass] 30.9 pg 27.0-32.0 [facility] Mean corpuscular hemoglobin concentration (MCHC) determinationOrdered By: Jameson Corral on 09-17-2024 MCHC (RBC) [Mass/Vol] 30.2 g/dL Low 32-36 [facility] Mean platelet volume determi nationOrdered By: Jameson Corral on 09-17-2024 Platelet mean volume (Bld) [Entitic vol] 9.9 fL 6.2-12.0 [facility] Microscopic analysis of urin e for red blood cells (RBC)Ordered By: Jameson Corral on 09-17-2024 Microscopic analysis of urine for red blood cells (RBC) 0 SEEN /hpf 0-5 [facility] Mucus LM Ql (Urine sed)Order ed By: Jameson Corral on 09-17-2024 Mucus Ql (Urine sed) 0 SEEN /hpf [facility] Nitrite Test strip Ql (U)Ord ered By: Jameson Corral on 09-17-2024 Nitrite Ql (U) Negative Negative [facility] Platelet countOrdered By: Zack Jeong on 09-17-2024 Platelets (Bld) [#/Vol] 246 10*3/uL 150-450 [facility] Potassium measurement (mass/ volume)Ordered By: Jameson Corral on 09-17-2024 Potassium (Unsp spec) [Mass/Vol] 4.1 mmol/L 3.3-5.1 [facility] Protein Test strip Ql (U)Ord ered By: Jameson Corral on 09-17-2024 Protein Ql (U) 15 mg/dl High Negative [facility] RBC Auto (Bld) [#/Vol]Ordere d By: Jameson Corral on 09-17-2024 RBC (Bld) [#/Vol] 3.46 10*6/uL Low 4.2-5.4 [facility] Serum creatinine measurement (mass/volume)Ordered By: Jameson Corral on 09-17-2024 Creatinine [Mass/Vol] 0.56 mg/dL Low 0.70-1.20 [facility] Serum glucose measurement (m ass/volume)Ordered By: Jameson Corral on 09-17-2024 Glucose [Mass/Vol] 80 mg/dL 70-99 [facility] Serum or plasma calcium nessa urement (mass/volume)Ordered By: Jameson Corral on 09-17-2024 Calcium [Mass/Vol] 8.9 mg/dL 7.6-11.0 [facility] Serum or plasma urea nitroge n measurement (mass/volume)Ordered By: Jameson Corral on 09-17-2024 Urea nitrogen [Mass/Vol] 15 mg/dL 4-19 [facility] Sodium levelOrdered By: Fabian Corral on 09-17-2024 Sodium [Moles/Vol] 143 mmol/L 133-145 [facility] Squamous epithelial cells de tection in urine sediment by light microscopyOrdered By: Jameson Corral on 09-17-2024 Epithelial cells.squamous LM Ql (Urine sed) 0 SEEN /hpf 5-10 [facility] Urine clarityOrdered By: Pet Ellis on 09-17-2024 Clarity (U) Sl. Cloudy Clear [facility] Urine color determinationOrd ered By: Jameson Corral on 09-17-2024 Color (U) Yellow Yellow [facility] Urine cultureOrdered By: Pet Ellis on 09-17-2024 Bacteria identified Cx Nom (U) Mixed Gram Pos & Gram Neg Org Abnormal [facility] Urine glucose detectionOrder ed By: Jameson Corral on 09-17-2024 Glucose Ql (U) Normal mg/dl Normal [facility] Urine leukocyte esterase det ection by dipstickOrdered By: Jameson Corral on 09-17-2024 Leukocyte esterase Test strip Ql (U) Negative Negative [facility] Urine pHOrdered By: Jameson wilson on 09-17-2024 pH (U) 6.0 [pH] 5.0 - 8.0 [facility] Urine sediment bacteria coun t by microscopy (number/high power field)Ordered By: Jameson Corral on 09-17-2024 Bacteria LM.HPF (Urine sed) [#/Area] 0 /[HPF] None Seen [facility] Urine specific gravity measu rementOrdered By: Jameson Corral on 09-17-2024 Specific gravity (U) [Rel density] 1.020 1.002-1.030 [facility] Urine urobilinogen measureme ntOrdered By: Jameson Corral on 09-17-2024 Urobilinogen Ql (U) Normal mg/dl Normal [facility] White blood cell (WBC) count Ordered By: Jameson Corral on 09-17-2024 WBC (Bld) [#/Vol] 8.0 10*3/uL 4.4-11.0 [facility] White blood cell countOrdere d By: Jameson Corral on 09-17-2024 White blood cell count 0 SEEN /hpf 0-5 [facility] Anion gap in Serum or Plasma Ordered By: Jameson Corral on 09-14-2024 Anion gap [Moles/Vol] 12 mmol/L 5- [facility] BUN/creatinine ratioOrdered By: Jameson Corral on 09-14-2024 Urea nitrogen/Creatinine [Mass ratio] 23.4 mg/mg High - [facility] Basic Metabolic Profile (BMP )on 09-14-2024 BUN/CRE 23.4 RATIO High 01-07 [facility] Comment on above: Order Comment: 311-2 Performed By: #### L 500.2500, L100.0500 #### [facility] [address] [place], [address] Calcium [Mass/Vol] 9.2 mg/dL Normal 7.6-11.0 [facility] Comment on above: Order Comment: 311-2 Performed By: #### L 500.2500, L100.0500 #### [facility] [address] [place], [address] Chloride [Moles/Vol] 98 mmol/L Normal 98-108 [facility] [place] Comment on above: Order Comment: 311-2 Performed By: #### L 500.2500, L100.0500 #### [facility] [address] [place], [address] CO2 [Moles/Vol] 29.4 mmol/L Normal 21.0-32.0 [facility] Comment on above: Order Comment: 311-2 Performed By: #### L 500.2500, L100.0500 #### [facility] [address] [place], [address] Creatinine [Mass/Vol] 0.56 mg/dL Low 0.70-1.20 [facility] Comment on above: Order Comment: 311-2 Performed By: #### L 500.2500, L100.0500 #### [facility] [address] [place], [address] GAP 12 Normal -15 [facility] Comment on above: Order Comment: 311-2 Performed By: #### L 500.2500, L100.0500 #### [facility] [address] [place], [address] GFR/1.73 sq M.predicted among non-blacks MDRD (S/P/Bld) [Vol rate/Area] 100 mL/min/{1.73_m2} Normal >60 [facility] Comment on above: Order Comment: 311-2 Result Comment: mL/m in/1.73m2 CKD-EPI Creatinine Equation (2020) Performed By: #### L 500.2500, L100.0500 #### [facility] [address] [place], [address] Glucose [Mass/Vol] 103 mg/dL High 70-99 [facility] Comment on above: Order Comment: 311-2 Performed By: #### L 500.2500, L100.0500 #### [facility] [address] [place], [address] Potassium [Moles/Vol] 3.9 mmol/L Normal 3.3-5.1 [facility] Comment on above: Order Comment: 311-2 Performed By: #### L 500.2500, L100.0500 #### [facility] [address] [place], [address] Sodium [Moles/Vol] 139 mmol/L Normal 133-145 [facility] Comment on above: Order Comment: 311-2 Performed By: #### L 500.2500, L100.0500 #### [facility] [address] [place], [address] Urea nitrogen [Mass/Vol] 13 mg/dL Normal 4-19 [facility] Comment on above: Order Comment: 311-2 Performed By: #### L 500.2500, L100.0500 #### [facility] [address] [place], [address] CBC-Complete Blood Cnt No Elvia bradshaw 09-14-2024 Erythrocyte distribution width (RBC) [Ratio] 13.4 % Normal 11.6-14.6 [facility] Comment on above: Order Comment: 311-2 Performed By: #### L 500.2500, L100.0500 #### [facility] [address] [place], [address] Hematocrit (Bld) [Volume fraction] 38.3 % Normal 37-47 [facility] Comment on above: Order Comment: 311-2 Performed By: #### L 500.2500, L100.0500 #### [facility] [address] [place], [address] Hemoglobin (Bld) [Mass/Vol] 12.1 g/dL Normal 12.0-15.0 [facility] Comment on above: Order Comment: 311-2 Performed By: #### L 500.2500, L100.0500 #### [facility] [address] [place], [address] MCH (RBC) [Entitic mass] 32.0 pg Normal 27.0-32.0 [facility] Comment on above: Order Comment: 311-2 Performed By: #### L 500.2500, L100.0500 #### [facility] [address] [place], [address] MCHC (RBC) [Mass/Vol] 31.6 g/dL Low 32-36 [facility] Comment on above: Order Comment: 311-2 Performed By: #### L 500.2500, L100.0500 #### [facility] [address] [place], [address] MCV (RBC) [Entitic vol] 101.3 fL High 81-99 [facility] Comment on above: Order Comment: 311-2 Performed By: #### L 500.2500, L100.0500 #### [facility] [address] [place], [address] Platelet mean volume (Bld) [Entitic vol] 9.9 fL Normal 6.2-12.0 [facility] Comment on above: Order Comment: 311-2 Performed By: #### L 500.2500, L100.0500 #### [facility] [address] [place], [address] Platelets (Bld) [#/Vol] 274 10*3/uL Normal 150-450 [facility] Comment on above: Order Comment: 311-2 Performed By: #### L 500.2500, L100.0500 #### [facility] [address] [place], [address] RBC (Bld) [#/Vol] 3.78 10*6/uL Low 4.2-5.4 [facility] Comment on above: Order Comment: 311-2 Performed By: #### L 500.2500, L100.0500 #### [facility] [address] [place], [address] RDW SD 50.9 fl High 35.1-43.9 [facility] Comment on above: Order Comment: 311-2 Performed By: #### L 500.2500, L100.0500 #### [facility] [address] [place], [address] WBC (Bld) [#/Vol] 11.4 10*3/uL High 4.4-11.0 [facility] Comment on above: Order Comment: 311-2 Performed By: #### L 500.2500, L100.0500 #### [facility] [address] [place], [address] Carbon dioxide, total [Moles /volume] in Central venous bloodOrdered By: Jameson Corral on 09-14-2024 CO2 [Moles/Vol] 29.4 mmol/L 21.0-32.0 [facility] Chloride assayOrdered By: Zack Jeong on 09-14-2024 Chloride [Moles/Vol] 98 mmol/L 98-108 [facility] [place] Erythrocyte distribution wid th ratioOrdered By: Jameson Corral on 09-14-2024 Erythrocyte distribution width (RBC) [Ratio] 13.4 % 11.6-14.6 [facility] Erythrocyte distribution wid th standard deviationOrdered By: Jameson Corral on 09-14-2024 Erythrocyte distribution width (RBC) [Ratio] 50.9 fl High 35.1-43.9 [facility] Glomerular filtration rate ( GFR) estimation/1.73 sq m using serum, plasma, or whole bOrdered By: Jameson Corral on 09-14-2024 GFR/1.73 sq M.predicted among non-blacks MDRD (S/P/Bld) [Vol rate/Area] 100 mL/min/{1.73_m2} >60 [facility] Comment on above: mL/min/1.73m2 CKD-EP I Creatinine Equation (2020) Hematocrit Auto (Bld) [Volum e fraction]Ordered By: Jameson Corral on 09-14-2024 Hematocrit (Bld) [Volume fraction] 38.3 % 37-47 [facility] Hemoglobin measurementOrdere d By: Jameson Corral on 09-14-2024 Hemoglobin (Bld) [Mass/Vol] 12.1 g/dL 12.0-15.0 [facility] MCV (mean corpuscular volume ) determinationOrdered By: Jameson Corral on 09-14-2024 MCV (RBC) [Entitic vol] 101.3 fL High 81-99 [facility] Mean corpuscular hemoglobin (MCH) determinationOrdered By: Jameson Corral on 09-14-2024 MCH (RBC) [Entitic mass] 32.0 pg 27.0-32.0 [facility] Mean corpuscular hemoglobin concentration (MCHC) determinationOrdered By: Jameson Corral on 09-14-2024 MCHC (RBC) [Mass/Vol] 31.6 g/dL Low 32-36 [facility] Mean platelet volume determi nationOrdered By: Jameson Corral on 09-14-2024 Platelet mean volume (Bld) [Entitic vol] 9.9 fL 6.2-12.0 [facility] Platelet countOrdered By: Zack Jeong on 09-14-2024 Platelets (Bld) [#/Vol] 274 10*3/uL 150-450 [facility] Potassium measurement (mass/ volume)Ordered By: Jameson Corral on 09-14-2024 Potassium (Unsp spec) [Mass/Vol] 3.9 mmol/L 3.3-5.1 [facility] RBC Auto (Bld) [#/Vol]Ordere d By: Jameson Corral on 09-14-2024 RBC (Bld) [#/Vol] 3.78 10*6/uL Low 4.2-5.4 [facility] Serum creatinine measurement (mass/volume)Ordered By: Jameson Corral on 09-14-2024 Creatinine [Mass/Vol] 0.56 mg/dL Low 0.70-1.20 [facility] Serum glucose measurement (m ass/volume)Ordered By: Jameson Corral on 09-14-2024 Glucose [Mass/Vol] 103 mg/dL High 70-99 [facility] Serum or plasma calcium nessa urement (mass/volume)Ordered By: Jameson Corral on 09-14-2024 Calcium [Mass/Vol] 9.2 mg/dL 7.6-11.0 [facility] Serum or plasma urea nitroge n measurement (mass/volume)Ordered By: Jameson Corral on 09-14-2024 Urea nitrogen [Mass/Vol] 13 mg/dL 4-19 [facility] Sodium levelOrdered By: Fabian Corral on 09-14-2024 Sodium [Moles/Vol] 139 mmol/L 133-145 [facility] White blood cell (WBC) count Ordered By: Jameson Corral on 09-14-2024 WBC (Bld) [#/Vol] 11.4 10*3/uL High 4.4-11.0 [facility] 36on 09-07-2024 36 Spoke to Nilesh from [facility] and scheduled patient for a follow up on 09/24@10am. Patient has not been seen for quite a while and also is requesting port removal to be scheduled. Normal [facility] 36 Nilesh from [facility] pt's port was flushed but there was no blood draw back. Patient requested for the port to be removed due to not being used for roughly 1 year. Please contact Nilesh with further questions at [phone] Normal [facility] Progress Noteon 09-06-2024 Progress Note Normal [facility] Thyroid Stim Hormone (TSH)on 08-22-2024 TSH 0.786 uIU/mL Normal 0.300-4.200 [facility] Comment on above: Order Comment: 102.2 Performed By: #### L 400.0001, M100.2200 #### [facility] [address] [place], [address] 37on 08-20-2024 37 Normal [facility] Progress Noteon 08-20-2024 Progress Note Normal [facility] Basic Metabolic Profile (BMP )on 08-15-2024 BUN/CRE 28.5 RATIO High 10-20 [facility] Comment on above: Order Comment: 102-2 Performed By: #### L 100.0500, L500.2500 #### [facility] [address] [place], [address] Calcium [Mass/Vol] 8.8 mg/dL Normal 7.6-11.0 [facility] Comment on above: Order Comment: 102-2 Performed By: #### L 100.0500, L500.2500 #### [facility] [address] [place], [address] Chloride [Moles/Vol] 103 mmol/L Normal 98-108 [facility] Comment on above: Order Comment: 102-2 Performed By: #### L 100.0500, L500.2500 #### [facility] [address] [place], [address] CO2 [Moles/Vol] 31.7 mmol/L Normal 21.0-32.0 [facility] Comment on above: Order Comment: 102-2 Performed By: #### L 100.0500, L500.2500 #### [facility] [address] [place], [address] Creatinine [Mass/Vol] 0.47 mg/dL Low 0.70-1.20 [facility] Comment on above: Order Comment: 102-2 Performed By: #### L 100.0500, L500.2500 #### [facility] [address] [place], [address] GAP 7 Normal 5-15 [facility] Comment on above: Order Comment: 102-2 Performed By: #### L 100.0500, L500.2500 #### [facility] [address] [place], [address] GFR/1.73 sq M.predicted among non-blacks MDRD (S/P/Bld) [Vol rate/Area] 104 mL/min/{1.73_m2} Normal >60 [facility] Comment on above: Order Comment: 102-2 Result Comment: mL/m in/1.73m2 CKD-EPI Creatinine Equation (2020) Performed By: #### L 100.0500, L500.2500 #### [facility] [address] [place], [address] Glucose [Mass/Vol] 85 mg/dL Normal 70-99 [facility] Comment on above: Order Comment: 102-2 Performed By: #### L 100.0500, L500.2500 #### [facility] [address] [place], [address] Potassium [Moles/Vol] 3.9 mmol/L Normal 3.3-5.1 [facility] Comment on above: Order Comment: 102-2 Performed By: #### L 100.0500, L500.2500 #### [facility] [address] [place], [address] Sodium [Moles/Vol] 142 mmol/L Normal 133-145 [facility] Comment on above: Order Comment: 102-2 Performed By: #### L 100.0500, L500.2500 #### [facility] [address] [place], [address] Urea nitrogen [Mass/Vol] 13 mg/dL Normal 4-19 [facility] Comment on above: Order Comment: 102-2 Performed By: #### L 100.0500, L500.2500 #### [facility] [address] [place], [address] CBC-Complete Blood Cnt No Di ffon 08-15-2024 Erythrocyte distribution width (RBC) [Ratio] 14.0 % Normal 11.6-14.6 [facility] Comment on above: Order Comment: 102-2 Performed By: #### L 100.0500, L500.2500 #### [facility] [address] [place], [address] Hematocrit (Bld) [Volume fraction] 34.7 % Low 37-47 [facility] Comment on above: Order Comment: 102-2 Performed By: #### L 100.0500, L500.2500 #### [facility] [address] [place], [address] Hemoglobin (Bld) [Mass/Vol] 10.4 g/dL Low 12.0-15.0 [facility] Comment on above: Order Comment: 102-2 Performed By: #### L 100.0500, L500.2500 #### [facility] [address] [place], [address] MCH (RBC) [Entitic mass] 31.2 pg Normal 27.0-32.0 [facility] Comment on above: Order Comment: 102-2 Performed By: #### L 100.0500, L500.2500 #### [facility] [address] [place], [address] MCHC (RBC) [Mass/Vol] 30.0 g/dL Low 32-36 [facility] Comment on above: Order Comment: 102-2 Performed By: #### L 100.0500, L500.2500 #### [facility] [address] [place], [address] MCV (RBC) [Entitic vol] 104.2 fL High 81-99 [facility] Comment on above: Order Comment: 102-2 Performed By: #### L 100.0500, L500.2500 #### [facility] [address] [place], [address] Platelet mean volume (Bld) [Entitic vol] 9.8 fL Normal 6.2-12.0 [facility] Comment on above: Order Comment: 102-2 Performed By: #### L 100.0500, L500.2500 #### [facility] [address] [place], [address] Platelets (Bld) [#/Vol] 236 10*3/uL Normal 150-450 [facility] Comment on above: Order Comment: 102-2 Performed By: #### L 100.0500, L500.2500 #### [facility] [address] [place], [address] RBC (Bld) [#/Vol] 3.33 10*6/uL Low 4.2-5.4 [facility] Comment on above: Order Comment: 102-2 Performed By: #### L 100.0500, L500.2500 #### [facility] [address] [place], [address] RDW SD 54.0 fl High 35.1-43.9 [facility] Comment on above: Order Comment: 102-2 Performed By: #### L 100.0500, L500.2500 #### [facility] [address] [place], [address] WBC (Bld) [#/Vol] 9.4 10*3/uL Normal 4.4-11.0 [facility] Comment on above: Order Comment: 102-2 Performed By: #### L 100.0500, L500.2500 #### [facility] [address] [place], [address] [id number] 08-10-2024 [id number] Patient Choice Patient Name: GONZALO DELUCA Date of : 1955 Normal [facility] 30on 08-08-2024 30 Normal [facility] 30 Normal [facility] [id number] 08-08-2024 [id number] [facility] [id number] MAY, Discharge med list transmitted and 7000 in HENs to [facility] [place] via [employer] per TCC request. [facility] BASIC METABOLIC PANELon 05-2 Anion gap [Moles/Vol] 8 mmol/L Normal 3-13 [facility] Comment on above: Performed By: #### L [id number] ####Process Safety Engineer: HANS PAULSON ([id number])[facility] ([facility])[address] [place] [address] Calcium [Mass/Vol] 8.6 mg/dL Low 8.8-10.0 [facility] Comment on above: Performed By: #### L [id number] ####Process Safety Engineer: HANS PAULSON ([id number])[facility] ([facility])[address] [place] [address] [place] Chloride [Moles/Vol] 101 mmol/L Normal 98-107 [facility] Comment on above: Performed By: #### L [id number] ####Process Safety Engineer: HANS PAULSON ([id number])[facility] ([facility])[address] [place] [address] [place] CO2 [Moles/Vol] 32 mmol/L High 23-31 [facility] Comment on above: Performed By: #### L [id number] ####Process Safety Engineer: HANS PAULSON ([id number])[facility] [place] ([facility])[address] Creatinine [Mass/Vol] 0.63 mg/dL Normal 0.57-1.11 [facility] Comment on above: Performed By: #### L [id number] ####Process Safety Engineer: HANS PAULSON ([id number])[facility] ([facility])[address] GLOMERULAR FILTRATION RATE ML/MIN/1.73 SQ M.PREDICTED >90.0 Normal >60.0 [facility] Comment on above: Result Comment: Calc ulation based on the Chronic Kidney Disease Epidemiology Collaboration (CKD-EPI) equation refit without adjustment for race Performed By: #### L [id number] ####Process Safety Engineer: HANS PAULSON ([id number])[facility] ([facility])[address] Glucose [Mass/Vol] 99 mg/dL Normal 82-115 [facility] Comment on above: Performed By: #### L [id number] ####Process Safety Engineer: HANS PAULSON ([id number])[facility] ([facility])[address] Potassium [Moles/Vol] 3.9 mmol/L Normal 3.5-5.1 [facility] Comment on above: Result Comment: [facility] potassium values may be up to 0.5 mmol/L lower than serum values. Performed By: #### L [id number] ####Process Safety Engineer: HANS PAULSON ([id number])[facility] [place] ([facility])[address] [place] [address] [place] Sodium [Moles/Vol] 141 mmol/L Normal 136-145 [facility] Comment on above: Performed By: #### L [id number] ####Process Safety Engineer: HASN PAULSON ([id number])[facility] ([facility])[address] [place] [address] [place] Urea nitrogen [Mass/Vol] 22 mg/dL Normal 9-23 [facility] Comment on above: Performed By: #### L [id number] ####Process Safety Engineer: HANS PAULSON ([id number])[facility] ([facility])[address] [place] [address] Basic metabolic 1998 panelon 08-08-2024 Anion gap [Moles/Vol] 8 mmol/L 3 - 13 mmol/L [facility] Calcium [Mass/Vol] 8.6 mg/dL Low 8.8 - 10. 0 mg/dL [facility] Chloride [Moles/Vol] 101 mmol/L 98 - 10 7 mmol/L [facility] CO2 [Moles/Vol] 32 mmol/L High 23 - 31 mmol/L [facility] Creatinine [Mass/Vol] 0.63 mg/dL 0.57 - 1.11 mg/dL [facility] GFR/1.73 sq M.predicted (S/P/Bld) [Vol rate/Area] - PINF [facility] Comment on above: Calculation based on the Chronic Kidney Disease Epidemiology Collaboration (CKD-EPI) equation refit without adjustment for race Glucose [Mass/Vol] 99 mg/dL 82 - 115 mg/dL [facility] Interpretation and review of laboratory results Abnormal [facility] Potassium [Moles/Vol] 3.9 mmol/L 3.5 - 5.1 mmol/L [facility] Comment on above: Plasma potassium martín ues may be up to 0.5 mmol/L lower than serum values. Sodium [Moles/Vol] 141 mmol/L 136 - 145 mmol/L [facility] Urea nitrogen [Mass/Vol] 22 mg/dL 9 - 23 mg/d L [facility] CBC W Auto Differential pane l (Bld)on 08-08-2024 Basophils (Bld) [#/Vol] 0 10*3/uL 0.0 - 0.2 10*3/uL [facility] Basophils/100 WBC (Bld) 0.2 % 0.0 - 2.0 % [facility] Eosinophils (Bld) [#/Vol] 0.4 10*3/uL 0.0 - 0.5 10*3/uL [facility] Eosinophils/100 WBC (Bld) 2.9 % 0.0 - 6.0 % [facility] Erythrocyte distribution width (RBC) [Ratio] 14.6 % 11.5 - 15.0 % [facility] Hematocrit (Bld) [Volume fraction] 33.7 % Low 35.0 - 47.0 % [facility] Hemoglobin (Bld) [Mass/Vol] 10.4 g/dL Low 11.7 - 16.0 g/dL [facility] Immature granulocytes (Bld) [#/Vol] 0 10*3/uL NINF - 0.1 10*3/uL [facility] Immature granulocytes/100 WBC (Bld) 0.3 % 0.0 - 2.0 % [facility] Interpretation and review of laboratory results Abnormal [facility] Lymphocytes (Bld) [#/Vol] 1.1 10*3/uL 1.0 - 4.3 10*3/uL [facility] Lymphocytes/100 WBC (Bld) 9 % Low 15.0 - 45.0 % [facility] MCH (RBC) [Entitic mass] 31.3 pg 26. 0 - 34.0 pg [facility] MCHC (RBC) [Mass/Vol] 30.9 % 30.5 - 36.0 % [facility] MCV (RBC) [Entitic vol] 101.5 fL High 77.0 - 99.0 fL [facility] Monocytes (Bld) [#/Vol] 1.2 10*3/uL High 0.0 - 0.9 10*3/uL [facility] Monocytes/100 WBC (Bld) 9.6 % 5.0 - 13.0 % [facility] Neutrophils (Bld) [#/Vol] 9.8 10*3/uL High 1.8 - 7.5 10*3/uL [facility] Neutrophils/100 WBC (Bld) 78 % 38.0 - 82.0 % [facility] Nucleated RBC/100 WBC (Bld) [Ratio] 0 % [facility] Platelet mean volume (Bld) [Entitic vol] 9.8 fL 9.0 - 12.7 fL [facility] Platelets (Bld) [#/Vol] 192 10*3/uL 140 - 440 10*3/uL [facility] RBC (Bld) [#/Vol] 3.32 10*6/uL Low 3.80 - 5.2 0 10*6/uL [facility] WBC (Bld) [#/Vol] 12.6 10*3/uL High 3.6 - 10.7 10*3/uL [facility] CBC WITH AUTO DIFFERENTIALon 08-08-2024 Basophils (Bld) [#/Vol] 0.0 10*3/uL Normal 0.0-0.2 [facility] Comment on above: Performed By: #### L [id number] ####Process Safety Engineer: HANS PAULSON ([id number])[facility] [place] ([facility])[address] Basophils/100 WBC (Bld) 0.2 % Normal 0.0-2.0 [facility] Comment on above: Performed By: #### L [id number] ####Process Safety Engineer: HANS PAULSNO ([id number])[facility] ([facility])[address] [place] [address] Eosinophils (Bld) [#/Vol] 0.4 10*3/uL Normal 0.0-0.5 [facility] Comment on above: Performed By: #### L [id number] ####Process Safety Engineer: HANS PAULSON ([id number])[facility] ([facility])[address] [place] [address] Eosinophils/100 WBC (Bld) 2.9 % Normal 0.0-6.0 [facility] Comment on above: Performed By: #### L [id number] ####Process Safety Engineer: HANS PAULSON ([id number])[facility] ([facility])[address] Erythrocyte distribution width (RBC) [Ratio] 14.6 % Normal 11.5-15.0 [facility] Comment on above: Performed By: #### L [id number] ####Process Safety Engineer: HANS PAULSON ([id number])[facility] (SB[facility])[address] [place] [address] Hematocrit (Bld) [Volume fraction] 33.7 % Low 35.0-47.0 [facility] Comment on above: Performed By: #### L [id number] ####Process Safety Engineer: HANS PAULSON ([id number])[facility] ([facility])[address] Hemoglobin (Bld) [Mass/Vol] 10.4 g/dL Low 11.7-16.0 [facility] Comment on above: Performed By: #### L [id number] ####Process Safety Engineer: HANS PAULSON ([id number])[facility] ([facility])[address] IMMATURE GRANS % 0.3 % Normal 0.0-2.0 [facility] Comment on above: Performed By: #### L [id number] ####Process Safety Engineer: HANS ALCANTARESCOBAR ([id number])[facility] ([facility])[address] IMMATURE GRANS ABSOLUTE 0.0 10*3/uL Normal <0.1 [facility] Comment on above: Performed By: #### L [id number] ####Process Safety Engineer: HANS ALCANTARESCOBAR ([id number])[facility] [place] ([facility])[address] [place] [address] [place] Lymphocytes (Bld) [#/Vol] 1.1 10*3/uL Normal 1.0-4.3 [facility] Comment on above: Performed By: #### L [id number] ####Process Safety Engineer: HANS PAULSON ([id number])[facility] ([facility])[address] Lymphocytes/100 WBC (Bld) 9.0 % Low 15.0-45.0 [facility] Comment on above: Performed By: #### L [id number] ####Process Safety Engineer: HANS PAULSON ([id number])[facility] ([facility])[address] MCH (RBC) [Entitic mass] 31.3 pg Normal 26.0-34.0 [facility] Comment on above: Performed By: #### L [id number] ####Process Safety Engineer: HANS PAULSON ([id number])[facility] ([facility])[address] MCHC 30.9 % Normal 30.5-36.0 [facility] Comment on above: Performed By: #### L [id number] ####Process Safety Engineer: HANS PAULSON ([id number])[facility] [place] ([facility])[address] MCV (RBC) [Entitic vol] 101.5 fL High 77.0-99.0 [facility] Comment on above: Performed By: #### L [id number] ####Process Safety Engineer: HANS PAULSON ([id number])[facility] [place] ([facility])[address] Monocytes (Bld) [#/Vol] 1.2 10*3/uL High 0.0-0.9 [facility] Comment on above: Performed By: #### L [id number] ####Process Safety Engineer: HANS PAULSON ([id number])[facility] [place] ([facility])[address] Monocytes/100 WBC (Bld) 9.6 % Normal 5.0-13.0 [facility] Comment on above: Performed By: #### L [id number] ####Process Safety Engineer: HANS PAULSON ([id number])[facility] ([facility])[address] NEUTROPHILS ABSOLUTE 9.8 10*3/uL High 1.8-7.5 [facility] Comment on above: Performed By: #### L [id number] ####Process Safety Engineer: HANS PAULSON ([id number])[facility] [place] ([facility])[address] Neutrophils/100 WBC (Bld) 78.0 % Normal 38.0-82.0 [facility] Comment on above: Performed By: #### L [id number] ####Process Safety Engineer: HANS PAULSON ([id number])[facility] [place] ([facility])[address] NRBC 0.0 /100 WBCs Normal 0.0-2.0 [facility] Comment on above: Performed By: #### L [id number] ####Process Safety Engineer: HANS LORENE ([id number])[facility] [place] ([facility])[address] Platelet mean volume (Bld) [Entitic vol] 9.8 fL Normal 9.0-12.7 [facility] Comment on above: Performed By: #### L [id number] ####Process Safety Engineer: HANS LORENE ([id number])[facility] [place] ([facility])[address] Platelets (Bld) [#/Vol] 192 10*3/uL Normal 140-440 [facility] Comment on above: Performed By: #### L [id number] ####Process Safety Engineer: HANS LORENE ([id number])[facility]ITAL[facility] ([facility])[address] RBC (Bld) [#/Vol] 3.32 10*6/uL Low 3.80-5.20 [facility] Comment on above: Performed By: #### L [id number] ####Process Safety Engineer: HANS WALDROPIVELISSE ([id number])[facility] [place] ([facility])[address] WBC (Bld) [#/Vol] 12.6 10*3/uL High 3.6-10.7 [facility] Comment on above: Performed By: #### L [id number] ####Process Safety Engineer: HANS WALDROPIVELISSE ([id number])[facility] [place] ([facility])[address] COMPLETE URINALYSIS WITH REF FAMILIA TO CULTUREon 08-08-2024 BACTERIA (#/HPF) IN URINE Negative Normal Negative [facility] Comment on above: Performed By: #### L [id number] ####Process Safety Engineer: HANS ALCANTARESCOBAR ([id number])[facility] [place] ([facility])[address] BILIRUBIN, TOTAL PRESENCE IN URINE Negative Normal Negative [facility] Comment on above: Performed By: #### L [id number] ####Process Safety Engineer: HANS ALCANTARESCOBAR ([id number])[facility] ([facility])[address] Clarity (U) Clear Normal Clear [facility] Comment on above: Performed By: #### L [id number] ####Process Safety Engineer: HANS PAULSON ([id number])[facility] ([facility])[address] Color (U) Yellow Normal Lt. Yellow [facility] Comment on above: Performed By: #### L [id number] ####Process Safety Engineer: HANS PAULSON ([id number])[facility] ([facility])[address] GLUCOSE (MG/DL) IN URINE Normal Normal Normal (<70 ) [facility] Comment on above: Performed By: #### L [id number] ####Process Safety Engineer: HANS ALCANTARESCOBAR ([id number])[facility] ([facility])[address] HEMOGLOBIN PRESENCE IN URINE Negative Normal Negative [facility] Comment on above: Performed By: #### L [id number] ####Process Safety Engineer: HANS ALCANTARESCOBAR ([id number])[facility] ([facility])[address] [place] [address] [place] Ketones Ql (U) Negative Normal Negative [facility] Comment on above: Performed By: #### L [id number] ####Process Safety Engineer: HANS ALCANTARESCOBAR ([id number])[facility] ([facility])[address] LEUKOCYTE ESTERASE PRESENCE IN URINE BY TEST STRIP Negative Normal Negative [facility] Comment on above: Performed By: #### L [id number] ####Process Safety Engineer: HANS WALDROPKimESCOBAR ([id number])[facility] [place] ([facility])[address] [place] [address] [place] MUCUS (#/LPF) IN URINE SEDIMENT Few Normal Negative [facility] Comment on above: Performed By: #### L [id number] ####Process Safety Engineer: HANS WALDROPIVELISSE ([id number])[facility] [place] ([facility])[address] NITRITE PRESENCE IN URINE Negative Normal Negative [facility] Comment on above: Performed By: #### L [id number] ####Process Safety Engineer: HANS WALDROPIVELISSE ([id number])[facility] [place] ([facility])[address] pH (U) 6.0 [pH] Normal 5.0-8.0 [facility] Comment on above: Performed By: #### L [id number] ####Process Safety Engineer: HANS WALDROPIVELISSE ([id number])[facility] [place] ([facility])[address] Protein (U) [Mass/Vol] 20 mg/dL Abnormal Negative [facility] Comment on above: Performed By: #### L [id number] ####Process Safety Engineer: HANS WALDROPIVELISSE ([id number])[facility] ([facility])[address] [place] [address] [place] RBC (#/HPF) IN URINE SEDIMENT 0-2 Normal 0-2 [facility] Comment on above: Performed By: #### L [id number] ####Process Safety Engineer: HANS ALCANTARESCOBAR ([id number])[facility] ([facility])[address] [place] [address] Specific gravity (U) [Rel density] 1.026 Normal 1.005-1.030 [facility] Comment on above: Result Comment: KYM R COMMENTS:A specimen with <=10 WBC is not consistent with inflammation. This specimen will not reflex to a urine culture. Performed By: #### L [id number] ####Process Safety Engineer: HANS PAULSON ([id number])[facility] (SB[facility])[address] SQUAMOUS EPITHELIAL CELLS (#/HPF) IN URINE SEDIMENT 0-2 Normal 3-5 [facility] Comment on above: Performed By: #### L [id number] ####Process Safety Engineer: HANS PAULSON ([id number])[facility] (SB[facility])[address] UROBILINOGEN (MG/DL) IN URINE Normal Normal Normal (0-1) [facility] Comment on above: Performed By: #### L [id number] ####Process Safety Engineer: HANS PAULSON ([id number])[facility] (SBHLAB)[address] [place] [address] WBC (LEUKOCYTE) (#/HPF) IN URINE SEDIMENT 3-5 Normal 0-5 [facility] Comment on above: Performed By: #### L [id number] ####Process Safety Engineer: HANS ALCANTARESCOBAR ([id number])[facility] (SBHLAB)[address] [place] [address] Nursing Noteon 08-08-2024 [facility]:30pm. Normal [facility] Nursing Note Normal [facility] Progress Noteon 08-08-2024 Progress Note Normal [facility] Progress Note Patient chart review ed and being rounded on. Note to follow. 6:29 AM 08/08/24 Rena Beverly MD Division of Hospitalist Medicine Acute care [facility] Normal [facility] Urinalysis complete panel (U )Ordered By: Ziyad Ruiz on 08-08-2024 Bacteria LM.HPF (Urine sed) [#/Area] Negative Negative /HPF [facility] Bilirubin Ql (U) Negative Negative mg/dL [facility] Clarity (U) Clear Clear [facility] Color (U) Yellow Lt. Yellow [facility] Epithelial cells.squamous LM.HPF (Urine sed) [#/Area] 0-2 [facility] Glucose Ql (U) Normal Normal (<70) mg/dL [facility] Hemoglobin Ql (U) Negative Negative mg/dL [facility] Interpretation and review of laboratory results Abnormal [facility] Ketones (U) [Mass/Vol] Negative Negat kenton mg/dL [facility] Leukocyte esterase Test strip Ql (U) Negative Negative Sandra/uL [facility] Mucus LM.HPF (Urine sed) [#/Area] Few Negative /LPF [facility] Nitrite Ql (U) Negative Negative [facility] th pH (U) 6.0 [pH] 5.0 - 8.0 pH [facility] Protein (U) [Mass/Vol] 20 mg/dL Abnormal Negative [facility] RBC LM.HPF (Urine sed) [#/Area] 0-2 [facility] Specific gravity (U) [Rel density] 1.026 1.005 - 1.030 [facility] Urobilinogen (U) [Mass/Vol] Normal Normal (0-1) mg/dL [facility] WBC LM.HPF (Urine sed) [#/Area] 3-5 [facility] A specimen with <=10 WBC is not consistent with inflammation. This specimen will not reflex to a urine culture. [facility] XR Chest 2 Viewson No significant change compared to the prior exam. Report Dictated on Electronically Signed By: Pawan Cordova MD Electronically Signed Date/Time: 08/08/2024 10:02 AM [facility] Patient Name: GONZALO DELUCA : 1955 [facility]#: [id number] Exam Date/Time: 08/08/2024 09:53 Procedure: XR CHEST [...] the spine similar to prior CT imaging. [facility] Pawan Cordova MD - 08/08/2024 [facility] Name: [facility]ON[facility] 1955 [id number] Exam Date/Time: 08/08/2024 09:53 Procedure: XR CHEST [...] Electronically Signed Date/Time: 08/08/2024 10:02 AM EDT [facility] Radiology Study observation (narrative) [facility] XR Chest 2 ViewsOrdered By: Pawan Cordova on 08-08-2024 [facility] [employer] Work Phone: [phone] 08-07-2024 [id number] Normal [facility] BASIC METABOLIC PANELon 07-20 Anion gap [Moles/Vol] 7 mmol/L Normal 3-13 [facility] Comment on above: Performed By: #### L [id number] ####Process Safety Engineer: HANS PAULSON ([id number])[facility] [place] (SBHLAB)[address] [place] [address] Calcium [Mass/Vol] 9.3 mg/dL Normal 8.8-10.0 [facility] Comment on above: Performed By: #### L [id number] ####Process Safety Engineer: HANS PAULSON ([id number])[facility] [place] (SBHLAB)[address] Chloride [Moles/Vol] 101 mmol/L Normal 98-107 [facility] Comment on above: Performed By: #### L [id number] ####Process Safety Engineer: HANS PAULSON ([id number])[facility] [place] (SBHLAB)[address] CO2 [Moles/Vol] 33 mmol/L High 23-31 [facility] Comment on above: Performed By: #### L [id number] ####Process Safety Engineer: HANS PAULSON ([id number])[facility] [place] (SBHLAB)[address] Creatinine [Mass/Vol] 0.59 mg/dL Normal 0.57-1.11 [facility] Comment on above: Performed By: #### L [id number] ####Process Safety Engineer: HANS PAULSON ([id number])[facility] [place] (SBHLAB)[address] GLOMERULAR FILTRATION RATE ML/MIN/1.73 SQ M.PREDICTED >90.0 Normal >60.0 [facility] Comment on above: Result Comment: Calc ulation based on the Chronic Kidney Disease Epidemiology Collaboration (CKD-EPI) equation refit without adjustment for race Performed By: #### L [id number] ####Process Safety Engineer: HANS PAULSON ([id number])[facility] [place] (SBHLAB)[address] [place] [address] [place] Glucose [Mass/Vol] 124 mg/dL High 82-115 [facility] Comment on above: Performed By: #### L [id number] ####Process Safety Engineer: HANS PAULSON ([id number])[facility] [place] (SBHLAB)[address] [place] [address] [place] Potassium [Moles/Vol] 3.7 mmol/L Normal 3.5-5.1 [facility] Comment on above: Result Comment: [facility] potassium values may be up to 0.5 mmol/L lower than serum values. Performed By: #### L [id number] ####Process Safety Engineer: HANS ALCANTARESCOBAR ([id number])[facility] (SBHLAB)[address] Sodium [Moles/Vol] 141 mmol/L Normal 136-145 [facility] Comment on above: Performed By: #### L [id number] ####Process Safety Engineer: HANS WALDROPIVELISSE ([id number])[facility] (SBHLAB)[address] Urea nitrogen [Mass/Vol] 28 mg/dL High 9-23 [facility] Comment on above: Performed By: #### L [id number] ####Process Safety Engineer: HANS ALCANTARECSOBAR ([id number])[facility] (SBHLAB)[address] Basic metabolic 1998 panelon 08-07-2024 Anion gap [Moles/Vol] 7 mmol/L 3 - 13 mmol/L [facility] Calcium [Mass/Vol] 9.3 mg/dL 8.8 - 10. 0 mg/dL [facility] Chloride [Moles/Vol] 101 mmol/L 98 - 10 7 mmol/L [facility] CO2 [Moles/Vol] 33 mmol/L High 23 - 31 mmol/L [facility] Creatinine [Mass/Vol] 0.59 mg/dL 0.57 - 1.11 mg/dL [facility] GFR/1.73 sq M.predicted (S/P/Bld) [Vol rate/Area] - PINF [facility] Comment on above: Calculation based on the Chronic Kidney Disease Epidemiology Collaboration (CKD-EPI) equation refit without adjustment for race Glucose [Mass/Vol] 124 mg/dL High 82 - 115 mg/dL [facility] Interpretation and review of laboratory results Abnormal [facility] Potassium [Moles/Vol] 3.7 mmol/L 3.5 - 5.1 mmol/L [facility] Comment on above: Plasma potassium martín ues may be up to 0.5 mmol/L lower than serum values. Sodium [Moles/Vol] 141 mmol/L 136 - 145 mmol/L [facility] Urea nitrogen [Mass/Vol] 28 mg/dL High 9 - 23 mg/d L [facility] CBC W Auto Differential pane l (Bld)Ordered By: Crystal Dupont on 08-07-2024 Basophils (Bld) [#/Vol] 0 10*3/uL 0.0 - 0.2 10*3/uL [facility] Basophils/100 WBC (Bld) 0.2 % 0.0 - 2.0 % [facility] Eosinophils (Bld) [#/Vol] 0.3 10*3/uL 0.0 - 0.5 10*3/uL [facility] Eosinophils/100 WBC (Bld) 3.2 % 0.0 - 6.0 % [facility] Erythrocyte distribution width (RBC) [Ratio] 14.3 % 11.5 - 15.0 % [facility] Hematocrit (Bld) [Volume fraction] 33.8 % Low 35.0 - 47.0 % [facility] Hemoglobin (Bld) [Mass/Vol] 10.5 g/dL Low 11.7 - 16.0 g/dL [facility] Immature granulocytes (Bld) [#/Vol] 0 10*3/uL NINF - 0.1 10*3/uL [facility] Immature granulocytes/100 WBC (Bld) 0.1 % 0.0 - 2.0 % [facility] Interpretation and review of laboratory results Abnormal [facility] Lymphocytes (Bld) [#/Vol] 1.2 10*3/uL 1.0 - 4.3 10*3/uL [facility] Lymphocytes/100 WBC (Bld) 14.2 % Low 15.0 - 45.0 % [facility] MCH (RBC) [Entitic mass] 31.1 pg 26. 0 - 34.0 pg [facility] MCHC (RBC) [Mass/Vol] 31.1 % 30.5 - 36.0 % [facility] MCV (RBC) [Entitic vol] 100 fL High 77.0 - 99.0 fL [facility] Monocytes (Bld) [#/Vol] 0.8 10*3/uL 0.0 - 0.9 10*3/uL [facility] Monocytes/100 WBC (Bld) 9.6 % 5.0 - 13.0 % [facility] Neutrophils (Bld) [#/Vol] 6.3 10*3/uL 1.8 - 7.5 10*3/uL [facility] Neutrophils/100 WBC (Bld) 72.7 % 38.0 - 82.0 % [facility] Nucleated RBC/100 WBC (Bld) [Ratio] 0 % [facility] Platelet mean volume (Bld) [Entitic vol] 9.9 fL 9.0 - 12.7 fL [facility] Platelets (Bld) [#/Vol] 189 10*3/uL 140 - 440 10*3/uL [facility] RBC (Bld) [#/Vol] 3.38 10*6/uL Low 3.80 - 5.2 0 10*6/uL [facility] WBC (Bld) [#/Vol] 8.7 10*3/uL 3.6 - 10.7 10*3/uL [facility] CBC WITH AUTO DIFFERENTIALon 08-07-2024 Basophils (Bld) [#/Vol] 0.0 10*3/uL Normal 0.0-0.2 [facility] Comment on above: Performed By: #### L [id number] ####Process Safety Engineer: HANS PAULSON ([id number])[facility] ([facility])[address] [place] [address] Basophils/100 WBC (Bld) 0.2 % Normal 0.0-2.0 [facility] Comment on above: Performed By: #### L [id number] ####Process Safety Engineer: HANS PAULSON ([id number])[facility] ([facility])[address] Eosinophils (Bld) [#/Vol] 0.3 10*3/uL Normal 0.0-0.5 [facility] Comment on above: Performed By: #### L [id number] ####Process Safety Engineer: HANS PAULSON ([id number])[facility] ([facility])[address] Eosinophils/100 WBC (Bld) 3.2 % Normal 0.0-6.0 [facility] Comment on above: Performed By: #### L [id number] ####Process Safety Engineer: HANS PAULSON ([id number])[facility] [place] [address] Erythrocyte distribution width (RBC) [Ratio] 14.3 % Normal 11.5-15.0 [facility] Comment on above: Performed By: #### L [id number] ####Process Safety Engineer: HANS ALCANTARESCOBAR ([id number])[facility] ([facility])[address] [place] [address] Hematocrit (Bld) [Volume fraction] 33.8 % Low 35.0-47.0 [facility] Comment on above: Performed By: #### L [id number] ####Process Safety Engineer: HANS ALCANTARESCOBAR ([id number])[facility] ([facility])[address] [place] [address] Hemoglobin (Bld) [Mass/Vol] 10.5 g/dL Low 11.7-16.0 [facility] Comment on above: Performed By: #### L [id number] ####Process Safety Engineer: HANS PAULSON ([id number])[facility] ([facility])[address] [place] [address] IMMATURE GRANS % 0.1 % Normal 0.0-2.0 [facility] Comment on above: Performed By: #### L [id number] ####Process Safety Engineer: HANS PAULSON ([id number])[facility] ([facility])[address] [place] [address] IMMATURE GRANS ABSOLUTE 0.0 10*3/uL Normal <0.1 [facility] Comment on above: Performed By: #### L [id number] ####Process Safety Engineer: HANS PUALSON ([id number])[facility] ([facility])[address] [place] [address] Lymphocytes (Bld) [#/Vol] 1.2 10*3/uL Normal 1.0-4.3 [facility] Comment on above: Performed By: #### L [id number] ####Process Safety Engineer: HANS PAULSON ([id number])[facility] [place] (SB[facility]AB)[address] Lymphocytes/100 WBC (Bld) 14.2 % Low 15.0-45.0 [facility] Comment on above: Performed By: #### L [id number] ####Process Safety Engineer: HANS PAULSON ([id number])[facility] (SBHLAB)[address] MCH (RBC) [Entitic mass] 31.1 pg Normal 26.0-34.0 [facility] Comment on above: Performed By: #### L [id number] ####Process Safety Engineer: HANS WALDROPKimESCOBAR ([id number])[facility] [place] (SBHLAB)[address] MCHC 31.1 % Normal 30.5-36.0 [facility] Comment on above: Performed By: #### L [id number] ####Process Safety Engineer: HANS PAULSON ([id number])[facility] (SBHLAB)[address] MCV (RBC) [Entitic vol] 100.0 fL High 77.0-99.0 [facility] Comment on above: Performed By: #### L [id number] ####Process Safety Engineer: HANS PAULSON ([id number])[facility] (SBHLAB)[address] Monocytes (Bld) [#/Vol] 0.8 10*3/uL Normal 0.0-0.9 [facility] Comment on above: Performed By: #### L [id number] ####Process Safety Engineer: HANS PAULSON ([id number])[facility] (SB[facility])[address] Monocytes/100 WBC (Bld) 9.6 % Normal 5.0-13.0 [facility] Comment on above: Performed By: #### L [id number] ####Process Safety Engineer: HANS ALCANTARESCOBAR ([id number])[facility] [place] (SBHLAB)[address] NEUTROPHILS ABSOLUTE 6.3 10*3/uL Normal 1.8-7.5 [facility] Comment on above: Performed By: #### L [id number] ####Process Safety Engineer: HANS AGUILARCER ([id number])[facility] [place] (SB[facility]AB)[address] Neutrophils/100 WBC (Bld) 72.7 % Normal 38.0-82.0 [facility] Comment on above: Performed By: #### L [id number] ####Process Safety Engineer: HANS WALDROPIVELISSE ([id number])[facility] [place] (SBHLAB)[address] NRBC 0.0 /100 WBCs Normal 0.0-2.0 [facility] Comment on above: Performed By: #### L [id number] ####Process Safety Engineer: HANS ALCANTARESCOBAR ([id number])[facility] [place] (SB[facility])[address] Platelet mean volume (Bld) [Entitic vol] 9.9 fL Normal 9.0-12.7 [facility] Comment on above: Performed By: #### L [id number] ####Process Safety Engineer: HANS PAULSON ([id number])[facility] [place] (SB[facility])[address] Platelets (Bld) [#/Vol] 189 10*3/uL Normal 140-440 [facility] Comment on above: Performed By: #### L [id number] ####Process Safety Engineer: HANS ALCANTARESCOBAR ([id number])[facility] [place] (SB[facility]AB)[address] RBC (Bld) [#/Vol] 3.38 10*6/uL Low 3.80-5.20 [facility] Comment on above: Performed By: #### L [id number] ####Process Safety Engineer: HANS PAULSON ([id number])[facility] (SBHLAB)[address] WBC (Bld) [#/Vol] 8.7 10*3/uL Normal 3.6-10.7 [facility] Comment on above: Performed By: #### L [id number] ####Process Safety Engineer: HANS PAULSON ([id number])[facility] (SBHLAB)[address] Progress Noteon 08-07-2024 Progress Note Normal [facility] Progress Note Normal [facility] 30on 08-06-2024 30 Normal [facility] 30 Normal [facility] 30 Normal [facility] [id number] 08-06-2024 [id number] Normal [facility] [id number] Normal [facility] BASIC METABOLIC PANELon 05- Anion gap [Moles/Vol] 7 mmol/L Normal 3-13 [facility] Comment on above: Performed By: #### L [id number] ####Process Safety Engineer: HANS PAULSON ([id number])[facility] ([facility])[address] [place] [address] Calcium [Mass/Vol] 8.9 mg/dL Normal 8.8-10.0 [facility] Comment on above: Performed By: #### L [id number] ####Process Safety Engineer: HANS PAULSON ([id number])[facility] (SB[facility])[address] Chloride [Moles/Vol] 101 mmol/L Normal 98-107 [facility] Comment on above: Performed By: #### L [id number] ####Process Safety Engineer: HANS PAULSON ([id number])[facility] ([facility])[address] CO2 [Moles/Vol] 33 mmol/L High 23-31 [facility] Comment on above: Performed By: #### L [id number] ####Process Safety Engineer: HANS PAULSON ([id number])[facility] [place] ([facility])[address] Creatinine [Mass/Vol] 0.56 mg/dL Low 0.57-1.11 [facility] Comment on above: Performed By: #### L [id number] ####Process Safety Engineer: HANS PAULSON ([id number])[facility] (SB[facility])[address] GLOMERULAR FILTRATION RATE ML/MIN/1.73 SQ M.PREDICTED >90.0 Normal >60.0 [facility] Comment on above: Result Comment: Calc ulation based on the Chronic Kidney Disease Epidemiology Collaboration (CKD-EPI) equation refit without adjustment for race Performed By: #### L [id number] ####Process Safety Engineer: HANS PAULSON ([id number])[facility] ([facility])[address] Glucose [Mass/Vol] 93 mg/dL Normal 82-115 [facility] Comment on above: Performed By: #### L [id number] ####Process Safety Engineer: HANS PAULSON ([id number])[facility] ([facility])[address] Potassium [Moles/Vol] 3.8 mmol/L Normal 3.5-5.1 [facility] Comment on above: Result Comment: [facility] potassium values may be up to 0.5 mmol/L lower than serum values. Performed By: #### L [id number] ####Process Safety Engineer: HANS PAULSON ([id number])[facility] [place] (SBHLAB)[address] [place] [address] [place] Sodium [Moles/Vol] 141 mmol/L Normal 136-145 [facility] Comment on above: Performed By: #### L [id number] ####Process Safety Engineer: HANS PAULSON ([id number])[facility] (SB[facility])[address] [place] [address] [place] Urea nitrogen [Mass/Vol] 27 mg/dL High 9-23 [facility] Comment on above: Performed By: #### L [id number] ####Process Safety Engineer: HANS PAULSON ([id number])[facility] ([facility])[address] [place] [address] Basic metabolic 1998 panelon 08-06-2024 Anion gap [Moles/Vol] 7 mmol/L 3 - 13 mmol/L [facility] Calcium [Mass/Vol] 8.9 mg/dL 8.8 - 10. 0 mg/dL [facility] Chloride [Moles/Vol] 101 mmol/L 98 - 10 7 mmol/L [facility] CO2 [Moles/Vol] 33 mmol/L High 23 - 31 mmol/L [facility] Creatinine [Mass/Vol] 0.56 mg/dL Low 0.57 - 1.11 mg/dL [facility] GFR/1.73 sq M.predicted (S/P/Bld) [Vol rate/Area] - PINF [facility] Comment on above: Calculation based on the Chronic Kidney Disease Epidemiology Collaboration (CKD-EPI) equation refit without adjustment for race Glucose [Mass/Vol] 93 mg/dL 82 - 115 mg/dL [facility] Interpretation and review of laboratory results Abnormal [facility] Potassium [Moles/Vol] 3.8 mmol/L 3.5 - 5.1 mmol/L [facility] Comment on above: Plasma potassium martín ues may be up to 0.5 mmol/L lower than serum values. Sodium [Moles/Vol] 141 mmol/L 136 - 145 mmol/L [facility] Urea nitrogen [Mass/Vol] 27 mg/dL High 9 - 23 mg/d L [facility] CBC W Auto Differential pane l (Bld)Ordered By: Hakeem Cruz on 08-06-2024 Basophils (Bld) [#/Vol] 0.1 10*3/uL 0.0 - 0.2 10*3/uL [facility] Basophils/100 WBC (Bld) 0.6 % 0.0 - 2.0 % [facility] Eosinophils (Bld) [#/Vol] 0.3 10*3/uL 0.0 - 0.5 10*3/uL [facility] Eosinophils/100 WBC (Bld) 3.3 % 0.0 - 6.0 % [facility] Erythrocyte distribution width (RBC) [Ratio] 14 % 11.5 - 15.0 % [facility] Hematocrit (Bld) [Volume fraction] 35.3 % 35.0 - 47.0 % [facility] Hemoglobin (Bld) [Mass/Vol] 10.7 g/dL Low 11.7 - 16.0 g/dL [facility] Immature granulocytes (Bld) [#/Vol] 0 10*3/uL NINF - 0.1 10*3/uL [facility] Immature granulocytes/100 WBC (Bld) 0.4 % 0.0 - 2.0 % [facility] Interpretation and review of laboratory results Abnormal [facility] Lymphocytes (Bld) [#/Vol] 1.4 10*3/uL 1.0 - 4.3 10*3/uL [facility] Lymphocytes/100 WBC (Bld) 18.1 % 15.0 - 45.0 % [facility] MCH (RBC) [Entitic mass] 30.8 pg 26. 0 - 34.0 pg [facility] MCHC (RBC) [Mass/Vol] 30.3 % Low 30.5 - 36.0 % [facility] MCV (RBC) [Entitic vol] 101.7 fL High 77.0 - 99.0 fL [facility] Monocytes (Bld) [#/Vol] 0.8 10*3/uL 0.0 - 0.9 10*3/uL [facility] Monocytes/100 WBC (Bld) 9.6 % 5.0 - 13.0 % [facility] Neutrophils (Bld) [#/Vol] 5.3 10*3/uL 1.8 - 7.5 10*3/uL [facility] Neutrophils/100 WBC (Bld) 68 % 38.0 - 82.0 % [facility] Nucleated RBC/100 WBC (Bld) [Ratio] 0 % [facility] Platelet mean volume (Bld) [Entitic vol] 9.6 fL 9.0 - 12.7 fL [facility] Platelets (Bld) [#/Vol] 166 10*3/uL 140 - 440 10*3/uL [facility] RBC (Bld) [#/Vol] 3.47 10*6/uL Low 3.80 - 5.2 0 10*6/uL [facility] WBC (Bld) [#/Vol] 7.8 10*3/uL 3.6 - 10.7 10*3/uL [facility] CBC WITH AUTO DIFFERENTIALon 08-06-2024 Basophils (Bld) [#/Vol] 0.1 10*3/uL Normal 0.0-0.2 [facility] Comment on above: Performed By: #### L [id number] ####Process Safety Engineer: HANS PAULSON ([id number])[facility] [place] ([facility])[address] Basophils/100 WBC (Bld) 0.6 % Normal 0.0-2.0 [facility] Comment on above: Performed By: #### L [id number] ####Process Safety Engineer: HANS PAULSON ([id number])[facility] ([facility])[address] [place] [address] Eosinophils (Bld) [#/Vol] 0.3 10*3/uL Normal 0.0-0.5 [facility] Comment on above: Performed By: #### L [id number] ####Process Safety Engineer: HANS PAULSON ([id number])[facility] ([facility])[address] [place] [address] Eosinophils/100 WBC (Bld) 3.3 % Normal 0.0-6.0 [facility] Comment on above: Performed By: #### L [id number] ####Process Safety Engineer: HANS PAULSON ([id number])[facility] ([facility])[address] [place] [address] Erythrocyte distribution width (RBC) [Ratio] 14.0 % Normal 11.5-15.0 [facility] Comment on above: Performed By: #### L [id number] ####Process Safety Engineer: HANS PAULSON ([id number])[facility] ([facility])[address] [place] [address] Hematocrit (Bld) [Volume fraction] 35.3 % Normal 35.0-47.0 [facility] Comment on above: Performed By: #### L [id number] ####Process Safety Engineer: HANS PAULSON ([id number])[facility] (SBHLAB)[address] Hemoglobin (Bld) [Mass/Vol] 10.7 g/dL Low 11.7-16.0 [facility] Comment on above: Performed By: #### L [id number] ####Process Safety Engineer: HANS PAULSON ([id number])[facility] (SBHLAB)[address] IMMATURE GRANS % 0.4 % Normal 0.0-2.0 [facility] Comment on above: Performed By: #### L [id number] ####Process Safety Engineer: HANS PAULSON ([id number])[facility] IMMATURE GRANS ABSOLUTE 0.0 10*3/uL Normal <0.1 [facility] Comment on above: Performed By: #### L [id number] ####Process Safety Engineer: HANS PAULSON ([id number])[facility] Lymphocytes (Bld) [#/Vol] 1.4 10*3/uL Normal 1.0-4.3 [facility] Comment on above: Performed By: #### L [id number] ####Process Safety Engineer: HANS PAULSON ([id number])[facility] (SBAB)[address] Lymphocytes/100 WBC (Bld) 18.1 % Normal 15.0-45.0 [facility] Comment on above: Performed By: #### L [id number] ####Process Safety Engineer: HANS PAULSON ([id number])[facility] (SBAB)[address] MCH (RBC) [Entitic mass] 30.8 pg Normal 26.0-34.0 [facility] Comment on above: Performed By: #### L [id number] ####Process Safety Engineer: HANS ALCANTARESCOBAR ([id number])[facility] [place] (SBHLAB)[address] MCHC 30.3 % Low 30.5-36.0 [facility] Comment on above: Performed By: #### L [id number] ####Process Safety Engineer: HANS ALCANTARESCOBAR ([id number])[facility] (SBHLAB)[address] MCV (RBC) [Entitic vol] 101.7 fL High 77.0-99.0 [facility] Comment on above: Performed By: #### L [id number] ####Process Safety Engineer: HANS ALCANTARESCOBAR ([id number])[facility] [place] (SBHLAB)[address] Monocytes (Bld) [#/Vol] 0.8 10*3/uL Normal 0.0-0.9 [facility] Comment on above: Performed By: #### L [id number] ####Process Safety Engineer: HANS ALCANTARESCOBAR ([id number])[facility] [place] (SBHLAB)[address] Monocytes/100 WBC (Bld) 9.6 % Normal 5.0-13.0 [facility] Comment on above: Performed By: #### L [id number] ####Process Safety Engineer: HANS PAULSON ([id number])[facility] (SBHLAB)[address] NEUTROPHILS ABSOLUTE 5.3 10*3/uL Normal 1.8-7.5 [facility] Comment on above: Performed By: #### L [id number] ####Process Safety Engineer: HANS ALCANTARESCOBAR ([id number])[facility] [place] (SBHLAB)[address] Neutrophils/100 WBC (Bld) 68.0 % Normal 38.0-82.0 [facility] Comment on above: Performed By: #### L [id number] ####Process Safety Engineer: HANS PAULSON ([id number])[facility] (SBHLAB)[address] NRBC 0.0 /100 WBCs Normal 0.[facility]-2.0 [facility] Comment on above: Performed By: #### L [id number] ####Process Safety Engineer: HANS WALDROPIVELISSE ([id number])[facility] [place] (SBHLAB)[address] Platelet mean volume (Bld) [Entitic vol] 9.6 fL Normal 9.0-12.7 [facility] Comment on above: Performed By: #### L [id number] ####Process Safety Engineer: HANS WALDROPIVELISSE ([id number])[facility] [place] (SBHLAB)[address] Platelets (Bld) [#/Vol] 166 10*3/uL Normal 140-440 [facility] Comment on above: Performed By: #### L [id number] ####Process Safety Engineer: HANS PAULSON ([id number])[facility] [place] (SBHLAB)[address] RBC (Bld) [#/Vol] 3.47 10*6/uL Low 3.80-5.20 [facility] Comment on above: Performed By: #### L [id number] ####Process Safety Engineer: HANS PAULSON ([id number])[facility] [place] (SBHLAB)[address] WBC (Bld) [#/Vol] 7.8 10*3/uL Normal 3.6-10.7 [facility] Comment on above: Performed By: #### L [id number] ####Process Safety Engineer: HANS PAULSON ([id number])[facility] [place] (SBHLAB)[address] Progress Noteon 08-06-2024 Progress Note Normal [facility] Progress Note Normal [facility] Progress Note Normal [facility] Progress Note Normal [facility] Progress Note Normal [facility] Progress Note Normal [facility] 30on 08-05-2024 30 Normal [facility] 30 Normal [facility] BASIC METABOLIC PANELon 07-19 Anion gap [Moles/Vol] 5 mmol/L Normal 3-13 [facility] Comment on above: Performed By: #### L [id number] ####Process Safety Engineer: HANS PAULSON ([id number])[facility] [place] (SBHLAB)[address] Calcium [Mass/Vol] 9.4 mg/dL Normal 8.8-10.0 [facility] Comment on above: Performed By: #### L [id number] ####Process Safety Engineer: HANS PAULSON ([id number])[facility] [place] (SBHLAB)[address] [place] [address] [place] Chloride [Moles/Vol] 100 mmol/L Normal 98-107 [facility] Comment on above: Performed By: #### L [id number] ####Process Safety Engineer: HANS PAULSON ([id number])[facility] [place] (SBHLAB)[address] [place] [address] [place] CO2 [Moles/Vol] 36 mmol/L High 23-31 [facility] Comment on above: Performed By: #### L [id number] ####Process Safety Engineer: HANS PAULSON ([id number])[facility] [place] (SBHLAB)[address] Creatinine [Mass/Vol] 0.57 mg/dL Normal 0.57-1.11 [facility] Comment on above: Performed By: #### L [id number] ####Process Safety Engineer: HANS PAULSON ([id number])[facility] ([facility])[address] GLOMERULAR FILTRATION RATE ML/MIN/1.73 SQ M.PREDICTED >90.0 Normal >60.0 [facility] Comment on above: Result Comment: Calc ulation based on the Chronic Kidney Disease Epidemiology Collaboration (CKD-EPI) equation refit without adjustment for race Performed By: #### L [id number] ####Process Safety Engineer: HANS PAULSON ([id number])[facility] (SBHLAB)[address] Glucose [Mass/Vol] 102 mg/dL Normal 82-115 [facility] Comment on above: Performed By: #### L [id number] ####Process Safety Engineer: HANS PAULSON ([id number])[facility] (SBHLAB)[address] Potassium [Moles/Vol] 4.3 mmol/L Normal 3.5-5.1 [facility] Comment on above: Result Comment: [facility] potassium values may be up to 0.5 mmol/L lower than serum values. Performed By: #### L [id number] ####Process Safety Engineer: HANS PAULSON ([id number])[facility] (SBHLAB)[address] Sodium [Moles/Vol] 141 mmol/L Normal 136-145 [facility] Comment on above: Performed By: #### L [id number] ####Process Safety Engineer: HANS PAULSON ([id number])[facility] (SBHLAB)[address] Urea nitrogen [Mass/Vol] 25 mg/dL High 9-23 [facility] Comment on above: Performed By: #### L [id number] ####Process Safety Engineer: HANS PAULSON ([id number])[facility] (SBHLAB)[address] [place] [address] [place] Bacteria identified Aer cx N om (Lower resp)Ordered By: Joaquina Andrade on 08-05-2024 Gram Stain Result Few Epithelial cells per low power field Abnormal [facility] Gram Stain Result Many Polymorphonucle ar leukocytes per low power field Abnormal [facility] Gram Stain Result Positive [facility] Gram Stain Result Negative [facility] Interpretation and review of laboratory results Abnormal [facility] Basic metabolic 1998 panelon 08-05-2024 Anion gap [Moles/Vol] 5 mmol/L 3 - 13 mmol/L [facility] Calcium [Mass/Vol] 9.4 mg/dL 8.8 - 10. 0 mg/dL [facility] Chloride [Moles/Vol] 100 mmol/L 98 - 10 7 mmol/L [facility] CO2 [Moles/Vol] 36 mmol/L High 23 - 31 mmol/L [facility] Creatinine [Mass/Vol] 0.57 mg/dL 0.57 - 1.11 mg/dL [facility] GFR/1.73 sq M.predicted (S/P/Bld) [Vol rate/Area] - PINF [facility] Comment on above: Calculation based on the Chronic Kidney Disease Epidemiology Collaboration (CKD-EPI) equation refit without adjustment for race Glucose [Mass/Vol] 102 mg/dL 82 - 115 mg/dL [facility] Interpretation and review of laboratory results Abnormal [facility] Potassium [Moles/Vol] 4.3 mmol/L 3.5 - 5.1 mmol/L [facility] Comment on above: Plasma potassium martín ues may be up to 0.5 mmol/L lower than serum values. Sodium [Moles/Vol] 141 mmol/L 136 - 145 mmol/L [facility] Urea nitrogen [Mass/Vol] 25 mg/dL High 9 - 23 mg/d L [facility] CBC W Auto Differential pane l (Bld)Ordered By: Yair Sanchez on 08-05-2024 Basophils (Bld) [#/Vol] 0 10*3/uL 0.0 - 0.2 10*3/uL [facility] Basophils/100 WBC (Bld) 0.3 % 0.0 - 2.0 % [facility] Eosinophils (Bld) [#/Vol] 0.1 10*3/uL 0.0 - 0.5 10*3/uL [facility] Eosinophils/100 WBC (Bld) 0.6 % 0.0 - 6.0 % [facility] Erythrocyte distribution width (RBC) [Ratio] 13.9 % 11.5 - 15.0 % [facility] Hematocrit (Bld) [Volume fraction] 38.5 % 35.0 - 47.0 % [facility] Hemoglobin (Bld) [Mass/Vol] 12 g/dL 11.7 - 16.0 g/dL [facility] Immature granulocytes (Bld) [#/Vol] 0 10*3/uL NINF - 0.1 10*3/uL [facility] Immature granulocytes/100 WBC (Bld) 0.2 % 0.0 - 2.0 % [facility] Interpretation and review of laboratory results Abnormal [facility] Lymphocytes (Bld) [#/Vol] 1.5 10*3/uL 1.0 - 4.3 10*3/uL [facility] Lymphocytes/100 WBC (Bld) 14.9 % Low 15.0 - 45.0 % [facility] MCH (RBC) [Entitic mass] 31.6 pg 26. 0 - 34.0 pg [facility] MCHC (RBC) [Mass/Vol] 31.2 % 30.5 - 36.0 % [facility] MCV (RBC) [Entitic vol] 101.3 fL High 77.0 - 99.0 fL [facility] Monocytes (Bld) [#/Vol] 1.2 10*3/uL High 0.0 - 0.9 10*3/uL [facility] Monocytes/100 WBC (Bld) 12 % 5.0 - 13.0 % [facility] Neutrophils (Bld) [#/Vol] 7.1 10*3/uL 1.8 - 7.5 10*3/uL [facility] Neutrophils/100 WBC (Bld) 72 % 38.0 - 82.0 % [facility] Nucleated RBC/100 WBC (Bld) [Ratio] 0 % [facility] Platelet mean volume (Bld) [Entitic vol] 9.8 fL 9.0 - 12.7 fL [facility] Platelets (Bld) [#/Vol] 221 10*3/uL 140 - 440 10*3/uL [facility] RBC (Bld) [#/Vol] 3.8 10*6/uL 3.80 - 5.2 0 10*6/uL [facility] WBC (Bld) [#/Vol] 9.9 10*3/uL 3.6 - 10.7 10*3/uL [facility] CBC WITH AUTO DIFFERENTIALon 08-05-2024 Basophils (Bld) [#/Vol] 0.0 10*3/uL Normal 0.0-0.2 [facility] Comment on above: Performed By: #### L [id number] ####Process Safety Engineer: HANS ALCANTARESCOBAR ([id number])[facility] [place] (SBHLAB)[address] Basophils/100 WBC (Bld) 0.3 % Normal 0.0-2.0 [facility] Comment on above: Performed By: #### L [id number] ####Process Safety Engineer: HANS ALCANTARESCOBAR ([id number])[facility] [place] (SBHLAB)[address] Eosinophils (Bld) [#/Vol] 0.1 10*3/uL Normal 0.0-0.5 [facility] Comment on above: Performed By: #### L [id number] ####Process Safety Engineer: HANS WALDROPIVELISSE ([id number])[facility] [place] (SBHLAB)[address] Eosinophils/100 WBC (Bld) 0.6 % Normal 0.0-6.0 [facility] Comment on above: Performed By: #### L [id number] ####Process Safety Engineer: HANS ALCANTARESCOBAR ([id number])[facility] [place] (SBHLAB)[address] Erythrocyte distribution width (RBC) [Ratio] 13.9 % Normal 11.5-15.0 [facility] Comment on above: Performed By: #### L [id number] ####Process Safety Engineer: HANS PAULSON ([id number])[facility] [place] (SBHLAB)[address] Hematocrit (Bld) [Volume fraction] 38.5 % Normal 35.0-47.0 [facility] Comment on above: Performed By: #### L [id number] ####Process Safety Engineer: HANS ALCANTARESCOBAR ([id number])[facility] [place] (SBHLAB)[address] Hemoglobin (Bld) [Mass/Vol] 12.0 g/dL Normal 11.7-16.0 [facility] Comment on above: Performed By: #### L [id number] ####Process Safety Engineer: HANS PAULSON ([id number])[facility] (SBHLAB)[address] IMMATURE GRANS % 0.2 % Normal 0.0-2.0 [facility] Comment on above: Performed By: #### L [id number] ####Process Safety Engineer: HANS PAULSON ([id number])[facility] (SBAB)[address] IMMATURE GRANS ABSOLUTE 0.0 10*3/uL Normal <0.1 [facility] Comment on above: Performed By: #### L [id number] ####Process Safety Engineer: HANS PAULSON ([id number])[facility] (SBAB)[address] [place] [address] Lymphocytes (Bld) [#/Vol] 1.5 10*3/uL Normal 1.0-4.3 [facility] Comment on above: Performed By: #### L [id number] ####Process Safety Engineer: HANS PAULSON ([id number])[facility] Lymphocytes/100 WBC (Bld) 14.9 % Low 15.0-45.0 [facility] Comment on above: Performed By: #### L [id number] ####Process Safety Engineer: HANS PAULSON ([id number])[facility] (SBHLAB)[address] MCH (RBC) [Entitic mass] 31.6 pg Normal 26.0-34.0 [facility] Comment on above: Performed By: #### L [id number] ####Process Safety Engineer: HANS PAULSON ([id number])[facility] (SBHLAB)[address] MCHC 31.2 % Normal 30.5-36.0 [facility] Comment on above: Performed By: #### L [id number] ####Process Safety Engineer: HANS PAULSON ([id number])[facility] [place] (SBHLAB)[address] MCV (RBC) [Entitic vol] 101.3 fL High 77.0-99.0 [facility] Comment on above: Performed By: #### L [id number] ####Process Safety Engineer: HANS PAULSON ([id number])[facility] [place] (SBHLAB)[address] Monocytes (Bld) [#/Vol] 1.2 10*3/uL High 0.0-0.9 [facility] Comment on above: Performed By: #### L [id number] ####Process Safety Engineer: HANS ALCANTARESCOBAR ([id number])[facility] [place] (SBHLAB)[address] Monocytes/100 WBC (Bld) 12.0 % Normal 5.0-13.0 [facility] Comment on above: Performed By: #### L [id number] ####Process Safety Engineer: HANS WALDROPIVELISSE ([id number])[facility] [place] (SBHLAB)[address] NEUTROPHILS ABSOLUTE 7.1 10*3/uL Normal 1.8-7.5 [facility] Comment on above: Performed By: #### L [id number] ####Process Safety Engineer: HANS PAULSON ([id number])[facility] [place] (SBHLAB)[address] Neutrophils/100 WBC (Bld) 72.0 % Normal 38.0-82.0 [facility] Comment on above: Performed By: #### L [id number] ####Process Safety Engineer: HANS PAULSON ([id number])[facility] [place] (SBHLAB)[address] NRBC 0.0 /100 WBCs Normal 0.0-2.0 [facility] Comment on above: Performed By: #### L [id number] ####Process Safety Engineer: HANS AGUILARCER ([id number])[facility] (SBHLAB)[address] Platelet mean volume (Bld) [Entitic vol] 9.8 fL Normal 9.0-12.7 [facility] Comment on above: Performed By: #### L [id number] ####Process Safety Engineer: HANS WALDROPKimESCOBAR ([id number])[facility] [place] (SBHLAB)[address] Platelets (Bld) [#/Vol] 221 10*3/uL Normal 140-440 [facility] Comment on above: Performed By: #### L [id number] ####Process Safety Engineer: HANS AGUILARCER ([id number])[facility] [place] (SBHLAB)[address] [place] [address] RBC (Bld) [#/Vol] 3.80 10*6/uL Normal 3.80-5.20 [facility] Comment on above: Performed By: #### L [id number] ####Process Safety Engineer: HANS WALDROPIVELISSE ([id number])[facility] (SBHLAB)[address] [place] [address] WBC (Bld) [#/Vol] 9.9 10*3/uL Normal 3.6-10.7 [facility] Comment on above: Performed By: #### L [id number] ####Process Safety Engineer: HANS ALCANTARESCOBAR ([id number])[facility] (SBHLAB)[address] [place] [address] Laboratory - Microbiology an d Antimicrobial susceptibilityOrdered By: Joaquina Andrade on 08-05-2024 Bacteria identified Aer cx Nom (Lower resp) Many respiratory linus present. [facility] Bacteria identified Aer cx Nom (Lower resp) Many Pseudomonas aeruginosa Abnormal [facility] Progress Noteon 08-05-[address] [facility] Progress Note Normal [facility] Progress Note Normal [facility] 30on 08-04-2024 30 Normal [facility] 30 Normal [facility] [id number] 08-04-2024 [id number] Normal [facility] [id number] Normal [facility] BASIC METABOLIC PANELon 07-19 Anion gap [Moles/Vol] 6 mmol/L Normal 3-13 [facility] Comment on above: Performed By: #### L [id number] ####Process Safety Engineer: HANS PAULSON ([id number])[facility] [place] (SBHLAB)[address] Calcium [Mass/Vol] 8.4 mg/dL Low 8.8-10.0 [facility] Comment on above: Performed By: #### L AB15 ####Process Safety Engineer: HANS PAULSON ([id number])[facility] [place] (SBHLAB)[address] Chloride [Moles/Vol] 104 mmol/L Normal 98-107 [facility] Comment on above: Performed By: #### L AB15 ####Process Safety Engineer: HANS PAULSON ([id number])[facility] [place] (SBHLAB)[address] CO2 [Moles/Vol] 32 mmol/L High 23-31 [facility] Comment on above: Performed By: #### L AB15 ####Process Safety Engineer: HANS PAULSON ([id number])[facility] [place] (SBHLAB)[address] Creatinine [Mass/Vol] 0.55 mg/dL Low 0.57-1.11 [facility] Comment on above: Performed By: #### L AB15 ####Process Safety Engineer: HANS PAULSON ([id number])[facility] [place] (SBHLAB)[address] GLOMERULAR FILTRATION RATE ML/MIN/1.73 SQ M.PREDICTED >90.0 Normal >60.0 [facility] Comment on above: Result Comment: Calc ulation based on the Chronic Kidney Disease Epidemiology Collaboration (CKD-EPI) equation refit without adjustment for race Performed By: #### L [id number] ####Process Safety Engineer: HANS PAULSON ([id number])[facility] (SBHLAB)[address] [place] [address] Glucose [Mass/Vol] 111 mg/dL Normal 82-115 [facility] Comment on above: Performed By: #### L [id number] ####Process Safety Engineer: HANS PAULSON ([id number])[facility] (SBHLAB)[address] [place] [address] Potassium [Moles/Vol] 4.2 mmol/L Normal 3.5-5.1 [facility] Comment on above: Result Comment: [facility] potassium values may be up to 0.5 mmol/L lower than serum values. Performed By: #### L AB15 ####Process Safety Engineer: HANS PAULSON ([id number])[facility] (SBHLAB)[address] [place] [address] Sodium [Moles/Vol] 142 mmol/L Normal 136-145 [facility] Comment on above: Performed By: #### L AB15 ####Process Safety Engineer: HANS PAULSON ([id number])[facility] (HLAB)[address] [place] [address] Urea nitrogen [Mass/Vol] 26 mg/dL High 9-23 [facility] Comment on above: Performed By: #### L [id number] ####Process Safety Engineer: HANS PAULSON ([id number])[facility] (HLAB)[address] [place] [address] Basic metabolic 1998 panelon 08-04-2024 Anion gap [Moles/Vol] 6 mmol/L 3 - 13 mmol/L [facility] Calcium [Mass/Vol] 8.4 mg/dL Low 8.8 - 10. 0 mg/dL [facility] Chloride [Moles/Vol] 104 mmol/L 98 - 10 7 mmol/L [facility] CO2 [Moles/Vol] 32 mmol/L High 23 - 31 mmol/L [facility] Creatinine [Mass/Vol] 0.55 mg/dL Low 0.57 - 1.11 mg/dL [facility] [employer] GFR/1.73 sq M.predicted (S/P/Bld) [Vol rate/Area] - PINF [facility] Comment on above: Calculation based on the Chronic Kidney Disease Epidemiology Collaboration (CKD-EPI) equation refit without adjustment for race Glucose [Mass/Vol] 111 mg/dL 82 - 115 mg/dL [facility] Interpretation and review of laboratory results Abnormal [facility] [employer] Potassium [Moles/Vol] 4.2 mmol/L 3.5 - 5.1 mmol/L [facility] Comment on above: Plasma potassium martín ues may be up to 0.5 mmol/L lower than serum values. Sodium [Moles/Vol] 142 mmol/L 136 - 145 mmol/L [facility] Urea nitrogen [Mass/Vol] 26 mg/dL High 9 - 23 mg/d L [facility] CBC W Auto Differential pane l (Bld)on 08-04-2024 Basophils (Bld) [#/Vol] 0 10*3/uL 0.0 - 0.2 10*3/uL [facility] [employer] Basophils/100 WBC (Bld) 0.2 % 0.0 - 2.0 % [facility] [employer] Eosinophils (Bld) [#/Vol] 0 10*3/uL 0.0 - 0.5 10*3/uL [facility] [employer] Eosinophils/100 WBC (Bld) 0.4 % 0.0 - 6.0 % [facility] Erythrocyte distribution width (RBC) [Ratio] 13.8 % 11.5 - 15.0 % [facility] [employer] Hematocrit (Bld) [Volume fraction] 32.5 % Low 35.0 - 47.0 % [facility] Hemoglobin (Bld) [Mass/Vol] 10.2 g/dL Low 11.7 - 16.0 g/dL [facility] [employer] Immature granulocytes (Bld) [#/Vol] 0 10*3/uL NINF - 0.1 10*3/uL [facility] [employer] Immature granulocytes/100 WBC (Bld) 0.4 % 0.0 - 2.0 % [facility] Interpretation and review of laboratory results Abnormal [facility] [employer] Lymphocytes (Bld) [#/Vol] 1 10*3/uL 1.0 - 4.3 10*3/uL [facility] [employer] Lymphocytes/100 WBC (Bld) 11.8 % Low 15.0 - 45.0 % [facility] MCH (RBC) [Entitic mass] 31.6 pg 26. 0 - 34.0 pg [facility] MCHC (RBC) [Mass/Vol] 31.4 % 30.5 - 36.0 % [facility] MCV (RBC) [Entitic vol] 100.6 fL High 77.0 - 99.0 fL [facility] Monocytes (Bld) [#/Vol] 1 10*3/uL High 0.0 - 0.9 10*3/uL [facility] Monocytes/100 WBC (Bld) 11.6 % 5.0 - 13.0 % [facility] Neutrophils (Bld) [#/Vol] 6.2 10*3/uL 1.8 - 7.5 10*3/uL [facility] Neutrophils/100 WBC (Bld) 75.6 % 38.0 - 82.0 % [facility] Nucleated RBC/100 WBC (Bld) [Ratio] 0 % [facility] Platelet mean volume (Bld) [Entitic vol] 9.6 fL 9.0 - 12.7 fL [facility] Platelets (Bld) [#/Vol] 164 10*3/uL 140 - 440 10*3/uL [facility] RBC (Bld) [#/Vol] 3.23 10*6/uL Low 3.80 - 5.2 0 10*6/uL [facility] WBC (Bld) [#/Vol] 8.2 10*3/uL 3.6 - 10.7 10*3/uL [facility] CBC WITH AUTO DIFFERENTIALon 08-04-2024 Basophils (Bld) [#/Vol] 0.0 10*3/uL Normal 0.0-0.2 [facility] Comment on above: Performed By: #### L [id number] ####Process Safety Engineer: HANS PAULSON ([id number])[facility] ([facility])[address] [place] [address] Basophils/100 WBC (Bld) 0.2 % Normal 0.0-2.0 S [facility] Comment on above: Performed By: #### L [id number] ####Process Safety Engineer: HANS [id number])[facility] ([facility])[address] Eosinophils (Bld) [#/Vol] 0.0 10*3/uL Normal 0.0-0.5 [facility] Comment on above: Performed By: #### L [id number] ####Process Safety Engineer: HANS PAULSON ([id number])[facility] ([facility])[address] Eosinophils/100 WBC (Bld) 0.4 % Normal 0.0-6.0 [facility] Comment on above: Performed By: #### L [id number] ####Process Safety Engineer: HANS PAULSON ([id number])[facility] ([facility])[address] [place] [address] Erythrocyte distribution width (RBC) [Ratio] 13.8 % Normal 11.5-15.0 [facility] Comment on above: Performed By: #### L [id number] ####Process Safety Engineer: HANS PAULSON ([id number])[facility] ([facility])[address] [place] [address] Hematocrit (Bld) [Volume fraction] 32.5 % Low 35.0-47.0 [facility] Comment on above: Performed By: #### L [id number] ####Process Safety Engineer: HANS PAULSON ([id number])[facility] ([facility])[address] [place] [address] Hemoglobin (Bld) [Mass/Vol] 10.2 g/dL Low 11.7-16.0 [facility] Comment on above: Performed By: #### L [id number] ####Process Safety Engineer: HANS PAULSON ([id number])[facility])[address] IMMATURE GRANS % 0.4 % Normal 0.0-2.0 [facility] Comment on above: Performed By: #### L [id number] ####Process Safety Engineer: HANS PAULSON ([id number])[facility] ([facility])[address] IMMATURE GRANS ABSOLUTE 0.0 10*3/uL Normal <0.1 [facility] Comment on above: Performed By: #### L [id number] ####Process Safety Engineer: HANS PAULSON ([id number])[facility] ([facility])[address] Lymphocytes (Bld) [#/Vol] 1.0 10*3/uL Normal 1.0-4.3 [facility] Comment on above: Performed By: #### L [id number] ####Process Safety Engineer: HANS PAULSON ([id number])[facility] [place] ([facility])[address] Lymphocytes/100 WBC (Bld) 11.8 % Low 15.0-45.0 [facility] Comment on above: Performed By: #### L [id number] ####Process Safety Engineer: HANS PAULSON ([id number])[facility] [place] ([facility])[address] MCH (RBC) [Entitic mass] 31.6 pg Normal 26.0-34.0 [facility] Comment on above: Performed By: #### L [id number] ####Process Safety Engineer: HANS PAULSON ([id number])[facility] [place] ([facility])[address] MCHC 31.4 % Normal 30.5-36.0 [facility] Comment on above: Performed By: #### L [id number] ####Process Safety Engineer: HANS PAULSON ([id number])[facility] [place] ([facility])[address] MCV (RBC) [Entitic vol] 100.6 fL High 77.0-99.0 S [facility] Comment on above: Performed By: #### L [id number] ####Process Safety Engineer: HANS PAULSON ([id number])[facility] ([facility])[address] Monocytes (Bld) [#/Vol] 1.0 10*3/uL High 0.0-0.9 [facility] Comment on above: Performed By: #### L [id number] ####Process Safety Engineer: HANS PAULSON ([id number])[facility] ([facility])[address] Monocytes/100 WBC (Bld) 11.6 % Normal 5.0-13.0 [facility] Comment on above: Performed By: #### L [id number] ####Process Safety Engineer: HANS PAULSON ([id number])[facility] [place] ([facility])[address] NEUTROPHILS ABSOLUTE 6.2 10*3/uL Normal 1.8-7.5 [facility] Comment on above: Performed By: #### L [id number] ####Process Safety Engineer: HANS PAULSON ([id number])[facility] [place] ([facility])[address] Neutrophils/100 WBC (Bld) 75.6 % Normal 38.0-82.0 [facility] Comment on above: Performed By: #### L [id number] ####Process Safety Engineer: HANS PAULSON ([id number])[facility] [place] ([facility])[address] NRBC 0.0 /100 WBCs Normal 0.0-2.0 [facility] Comment on above: Performed By: #### L [id number] ####Process Safety Engineer: HANS PAULSON ([id number])[facility] [place] ([facility])[address] Platelet mean volume (Bld) [Entitic vol] 9.6 fL Normal 9.0-12.7 [facility] Comment on above: Performed By: #### L [id number] ####Process Safety Engineer: HANS PAULSON ([id number])[facility] ([facility])[address] Platelets (Bld) [#/Vol] 164 10*3/uL Normal 140-440 [facility] Comment on above: Performed By: #### L [id number] ####Process Safety Engineer: HANS PAULSON ([id number])[facility] ([facility])[address] RBC (Bld) [#/Vol] 3.23 10*6/uL Low 3.80-5.20 [facility] Comment on above: Performed By: #### L [id number] ####Process Safety Engineer: HANS WALDROPIVELISSE ([id number])[facility] ([facility])[address] WBC (Bld) [#/Vol] 8.2 10*3/uL Normal 3.6-10.7 [facility] Comment on above: Performed By: #### L [id number] ####Process Safety Engineer: HANS PAULSON ([id number])[facility] ([facility])[address] [place] [address] Progress Noteon 08-04-2024 Progress Note Normal [facility] Progress Note Normal [facility] Progress Note Normal [facility] Progress Note Nutrition note -received consult for poor jeri <12 . Jeri is 21 -already being followed by RD. [facility] 30on 08-03-2024 30 [facility] 30 [facility] [id number] 08-03-2024 [id number] Tasked weekend manager mechanical to follow for pending auth to [facility]. [phone] will need to be completed at the time of discharge. mergers and acquisitions manager to follow and assist as needed. [facility] [phone] Sent updated notes t o [facility] via [employer] per TCC request. Await review and response regarding ability to accept. TCC notified. Normal [facility] [id number] Normal [facility] Progress Noteon [...] [facility] 30 Normal [facility] [id number] 08-02-[id number] [facility] [id number] Normal [facility] Progress Noteon [...] 08-01-2024 30 Normal [facility] [id number] 08-01-[id number] [facility] Consulton 08-01-[address] [facility] PNEUMONIA PCR PANELon 2024 P[address]UM[address] PCR PANEL Normal [facility] Comment on above: Performed By: #### L [id number], [id number] ####Process Safety Engineer: AMELIE ELIZABETH ([id number])[address] Progress Noteon 08-01-2024 Progress Note Normal [...] 08-01-2024 RESPIRATORY CULTURE AND STAIN Normal [facility] Comment on above: Performed By: #### L [id number], [id number] ####Process Safety Engineer: AMELIE ELIZABETH ([id number])[facility] ([facility])[address] Respiratory pathogens DNA an d RNA panel MILANA+non-probe (Lower resp)Ordered By: Calvin Whittakerin on 08-01-2024 Acinetobacter baumannii complex Not detected Not Detected [facility] Adenovirus Not detected Not Detected [facility] Chlamydia pneumoniae Not detected Not Detected [facility] Enterobacter cloacae complex Not detected Not Detected [facility] Escherichia coli Not detected Not Detected [facility] FLUAV RNA MILANA+non-probe Ql (Lower resp) Not detected Not Detected [facility] FLUBV RNA MILANA+non-probe Ql (Lower resp) Not detected Not Detected [facility] Haemophilus influenzae Not detected Not Detecte d [facility] Human Metapneumovirus Not detected Not Detected [facility] Human Rhinovirus/Enterovirus Not detected Not Detected [facility] Interpretation and review of laboratory results Abnormal [facility] Klebsiella (Enterobacter) aerogenes Not detected Not Detected [facility] Klebsiella oxytoca Not detected Not Detected [facility] Klebsiella pneumoniae Not detected Not Detected [facility] Legionella pneumophila Not detected Not Detecte d [facility] Moraxella catarrhalis Detected Abnormal Not Detected [facility] Mycoplasma pneumoniae Not detected Not Detected [facility] Parainfluenza virus Not detected Not Detected [facility] Proteus spp Not detected Not Detected [facility] Pseudomonas aeruginosa Detected Abnormal Not Detected [facility] RSV RNA MILANA+probe Ql (Resp) Not detected Not Detected [facility] S. agalactiae Org specific cx Ql (Vag fld) Detected Abnormal Not Detected [facility] SARS-CoV-2 (COVID-19) RNA MILANA+non-probe Ql (Nph) Not detected Not Detected [facility] SARS-CoV-2 (COVID-19) RNA MILANA+probe Ql (Unsp spec) Methodology: Multiplex PCR This panel does not test for SARS-CoV-2 (Covid-19). The following antimicrobial resistance gene is reported if the appropriate organism is detected: mecA. The following antimicrobial resistance genes are reported if detected and the appropriate organisms are detected: CTX-M, IMP, KPC, NDM, OXA-48-like, and VIM. [facility] Serratia marcescens Not detected Not Detected [facility] Staphylococcus aureus Not detected Not Detected [facility] Streptococcus pneumoniae Not detected Not Detec tommy [facility] Streptococcus pyogenes Not detected Not Detecte d [facility] [id number] 07-31-2024 [id number] Business Specialist following case for Discharge Needs. Normal [facility] [id number] 07-31-2024 [id number] Normal [facility] [id number] Normal [facility] CRP [Mass/Vol]on 07-31-2024 Interpretation and review of laboratory results Normal [facility] CT Abdomen and Pelvis WO and [...] MD Electronically Signed Date/Time: 07/31/2024 4:14 PM [facility] RADIOLOGY [facility] Patient Name: GONZALO DELUCA : 1955 [facility]#: [id number] Exam Date/Time: 07/31/2024 15:25 Procedure: CT CHEST [...] 07/31/2024 [facility] 1955 [id number] Exam Date/Time: 07/31/2024 15:25 Procedure: CT CHEST [...] emphysema. Report Dictated on Electronically Signed By: Barndo Tejada MD Electronically Signed Date/Time: 07/31/2024 4:14 PM EDT [facility] Radiology Study observation (narrative) [facility] CT Abdomen and Pelvis WO and W contrast IVOrdered By: Brando Tejada on 07-31-2024 [facility] Work Phone: CT CHEST ABDOMEN PELVIS W CO NTRASTon 07-31-2024 CT CHEST ABDOMEN PELVIS W CONTRAST Normal [facility] Consulton 07-31-2024 Consult Normal [facility] Consult Normal [facility] Consult Normal [facility] Consult Normal [facility] Laboratory - Chemistry and C hemistry - challengeon 07-31-2024 TSH Qn 0.28 m[IU]/L Low [facility] Procalcitonin [Mass/Vol] 0.03 ng/mL NICHOLAS F - 0.07 ng/mL [facility] CRP [Mass/Vol] 1.4 mg/L [facility] 5.[facility] mg/L [facility] Procalcitonin [Mass/Vol]on 0 07-31-2024 Interpretation and review of laboratory results Normal [facility] PCT <0.50 = Low risk of severe sepsis and/or septic shock. PCT >2.00 = High risk of severe sepsis and/or septic shock. [facility] Progress Noteon 07-31-2024 Progress Note Normal [facility] Progress Note Normal [facility] Note Normal [facility] Note Normal [facility] Progress Note Normal [facility] RESPIRATORY PATHOGENS PANEL BY PCRon 07-31-2024 RESPIRATORY PATHOGENS PANEL BY PCR Normal [facility] Comment on above: Performed By: #### L [id number] ####Process Safety Engineer: AMELIE ELIZABETH ([id number])[facility] ([facility])[address] [place] [address] Respiratory pathogens DNA an d RNA panel MILANA+non-probe (Nph)on 07-31-2024 Adenovirus Not detected Not Detected [facility] B. pertussis DNA MILANA+probe Ql (Unsp spec) Not detected Not Detected [facility] Bordetella parapertussis Not detected Not Detec tommy [facility] Chlamydia pneumoniae Not detected Not Detected [facility] Coronavirus 229E Not detected Not Detected [facility] Coronavirus HKU1 Not detected Not Detected [facility] Coronavirus NL63 Not detected Not Detected [facility] Coronavirus OC43 Not detected Not Detected [facility] FLUAV RNA MILANA+non-probe Ql (Nph) Not detected Not Detected [facility] FLUBV RNA MILANA+non-probe Ql (Nph) Not detected Not Detected [facility] Human Metapneumovirus Not detected Not Detected [facility] Human Rhinovirus/Enterovirus Not detected Not Detected [facility] Interpretation and review of laboratory results Normal [facility] Mycoplasma pneumoniae Not detected Not Detected [facility] Parainfluenza 1 Not detected Not Detected [facility] Parainfluenza 2 Not detected Not Detected [facility] Parainfluenza 3 Not detected Not Detected [facility] Parainfluenza 4 Not detected Not Detected [facility] Respiratory Syncytial Virus Not detected Not Detected [facility] SARS-CoV-2 (COVID-19) RNA MILANA+non-probe Ql (Nph) Not detected Not Detected [facility] Methodology: Multipl ex PCR [facility] TSH Qnon 07-31-2024 Interpretation and review of laboratory results Abnormal [facility] BASIC METABOLIC PANELon 07-19 Anion gap [Moles/Vol] 4 mmol/L Normal - [facility] Comment on above: Performed By: #### L AB99, [id number], LAB69, LAB15, NMI365, LAB67, JHR638, LAB20, [id number] ####Process Safety Engineer: HANS PAULSON ([id number])[facility] ([facility])[address] Calcium [Mass/Vol] 8.8 mg/dL Normal 8.8-10.0 [facility] Comment on above: Performed By: #### L AB99, [id number], LAB69, LAB15, PYC753, LAB67, GMU266, LAB20, [id number] ####Process Safety Engineer: HANS PAULSON ([id number])[facility] ([facility])[address] Chloride [Moles/Vol] 103 mmol/L Normal 98-107 [facility] Comment on above: Performed By: #### L AB99, [id number], LAB69, LAB15, NYK974, LAB67, UVK554, LAB20, [id number] ####Process Safety Engineer: HANS PAULSON ([id number])[facility] ([facility])[address] CO2 [Moles/Vol] 37 mmol/L High 23-31 [facility] Comment on above: Performed By: #### L AB99, HAR482, LAB69, LAB15, SSZ658, LAB67, FNB848, LAB20, [id number] ####Process Safety Engineer: HANS PAULSON ([id number])[facility] ([facility])[address] Creatinine [Mass/Vol] 0.63 mg/dL Normal 0.57-1.11 [facility] Comment on above: Performed By: #### L AB99, [id number], LAB69, LAB15, JWD239, LAB67, EBC798, LAB20, [id number] ####Process Safety Engineer: HANS PAULSON ([id number])[facility] ([facility])[address] GLOMERULAR FILTRATION RATE ML/MIN/1.73 SQ M.PREDICTED >90.0 Normal >60.0 [facility] Comment on above: Result Comment: Calc ulation based on the Chronic Kidney Disease Epidemiology Collaboration (CKD-EPI) equation refit without adjustment for race Performed By: #### L AB99, [id number], LAB69, LAB15, DLY243, LAB67, DPA265, LAB20, [id number] ####Process Safety Engineer: HANS PAULSON ([id number])[facility] ([facility])[address] [place] [address] Glucose [Mass/Vol] 80 mg/dL Low 82-115 [facility] Comment on above: Performed By: #### L AB99, ICI547, LAB69, LAB15, NKH564, LAB67, MWL564, LAB20, [id number] ####Process Safety Engineer: HANS PAULSON ([id number])[facility] ([facility])[address] [place] [address] Potassium [Moles/Vol] 5.0 mmol/L Normal 3.5-5.1 [facility] Comment on above: Result Comment: [facility] potassium values may be up to 0.5 mmol/L lower than serum values. Performed By: #### L AB99, PWK595, LAB69, LAB15, URI040, LAB67, NID810, LAB20, [id number] ####Process Safety Engineer: HANS PAULSON ([id number])[facility] ([facility])[address] [place] [address] Sodium [Moles/Vol] 144 mmol/L Normal 136-145 [facility] Comment on above: Performed By: #### L AB99, KTH709, LAB69, LAB15, VJQ530, LAB67, GWH216, LAB20, [id number] ####Process Safety Engineer: HANS PAULSON ([id number])[facility] ([facility])[address] [place] [address] Urea nitrogen [Mass/Vol] 16 mg/dL Normal 9-23 [facility] Comment on above: Performed By: #### L AB99, OBJ696, LAB69, LAB15, HRJ072, LAB67, PTK769, LAB20, [id number] ####Process Safety Engineer: HANS PAULSON ([id number])[facility] ([facility])[address] [place] [address] Basic metabolic 1998 panelon 07-30-2024 Anion gap [Moles/Vol] 4 mmol/L 3 - 13 mmol/L [facility] Calcium [Mass/Vol] 8.8 mg/dL 8.8 - 10. 0 mg/dL [facility] Chloride [Moles/Vol] 103 mmol/L 98 - 10 7 mmol/L [facility] CO2 [Moles/Vol] 37 mmol/L High 23 - 31 mmol/L [facility] Creatinine [Mass/Vol] 0.63 mg/dL 0.57 - 1.11 mg/dL [facility] GFR/1.73 sq M.predicted (S/P/Bld) [Vol rate/Area] - PINF [facility] Comment on above: Calculation based on the Chronic Kidney Disease Epidemiology Collaboration (CKD-EPI) equation refit without adjustment for race Glucose [Mass/Vol] 80 mg/dL Low 82 - 115 mg/dL [facility] Potassium [Moles/Vol] 5 mmol/L 3.5 - 5.1 mmol/L [facility] Comment on above: Plasma potassium martín ues may be up to 0.5 mmol/L lower than serum values. Sodium [Moles/Vol] 144 mmol/L 136 - 145 mmol/L [facility] Urea nitrogen [Mass/Vol] 16 mg/dL 9 - 23 mg/d L [facility] C-REACTIVE PROTEINon 025 CRP [Mass/Vol] 1.4 mg/L Normal <5.0 [facility] Comment on above: Performed By: #### L AB99, [id number], LAB69, LAB15, LUW589, LAB67, CGI516, LAB20, [id number] ####Process Safety Engineer: HANS PAULSON ([id number])[facility] [place] ([facility])[address] CBC W Auto Differential pane l (Bld)Ordered By: Eh Alves on 07-30-2024 Basophils (Bld) [#/Vol] 0 10*3/uL 0.0 - 0.2 10*3/uL [facility] Basophils/100 WBC (Bld) 0.4 % 0.0 - 2.0 % [facility] Eosinophils (Bld) [#/Vol] 0.2 10*3/uL 0.0 - 0.5 10*3/uL [facility] Eosinophils/100 WBC (Bld) 2.7 % 0.0 - 6.0 % [facility] Erythrocyte distribution width (RBC) [Ratio] 13.4 % 11.5 - 15.0 % [facility] Hematocrit (Bld) [Volume fraction] 37 % 35.0 - 47.0 % [facility] Hemoglobin (Bld) [Mass/Vol] 11.2 g/dL Low 11.7 - 16.0 g/dL [facility] Immature granulocytes (Bld) [#/Vol] 0 10*3/uL NINF - 0.1 10*3/uL [facility] Immature granulocytes/100 WBC (Bld) 0.3 % 0.0 - 2.0 % [facility] Interpretation and review of laboratory results Abnormal [facility] Lymphocytes (Bld) [#/Vol] 1 10*3/uL 1.0 - 4.3 10*3/uL [facility] Lymphocytes/100 WBC (Bld) 10.7 % Low 15.0 - 45.0 % [facility] MCH (RBC) [Entitic mass] 31.3 pg 26. 0 - 34.0 pg [facility] MCHC (RBC) [Mass/Vol] 30.3 % Low 30.5 - 36.0 % [facility] MCV (RBC) [Entitic vol] 103.4 fL High 77.0 - 99.0 fL [facility] Monocytes (Bld) [#/Vol] 0.5 10*3/uL 0.0 - 0.9 10*3/uL [facility] Monocytes/100 WBC (Bld) 5.5 % 5.0 - 13.0 % [facility] Neutrophils (Bld) [#/Vol] 7.2 10*3/uL 1.8 - 7.5 10*3/uL [facility] Neutrophils/100 WBC (Bld) 80.4 % 38.0 - 82.0 % [facility] Nucleated RBC/100 WBC (Bld) [Ratio] 0 % [facility] Platelet mean volume (Bld) [Entitic vol] 9.5 fL 9.0 - 12.7 fL [facility] Platelets (Bld) [#/Vol] 225 10*3/uL 140 - 440 10*3/uL [facility] RBC (Bld) [#/Vol] 3.58 10*6/uL Low 3.80 - 5.2 0 10*6/uL [facility] WBC (Bld) [#/Vol] 8.9 10*3/uL 3.6 - 10.7 10*3/uL [facility] CBC WITH AUTO DIFFERENTIALon 07-30-2024 Basophils (Bld) [#/Vol] 0.0 10*3/uL Normal 0.0-0.2 [facility] Comment on above: Performed By: #### L [id number] ####Process Safety Engineer: HANS PAULSON ([id number])[facility] ([facility])[address] [place] [address] Basophils/100 WBC (Bld) 0.4 % Normal 0.0-2.0 [facility] Comment on above: Performed By: #### L [id number] ####Process Safety Engineer: HANS PAULSON ([id number])[facility] ([facility])[address] [place] [address] [place] Eosinophils (Bld) [#/Vol] 0.2 10*3/uL Normal 0.0-0.5 [facility] Comment on above: Performed By: #### L [id number] ####Process Safety Engineer: HANS PAULSON ([id number])[facility] ([facility])[address] [place] [address] Eosinophils/100 WBC (Bld) 2.7 % Normal 0.0-6.0 [facility] Comment on above: Performed By: #### L [id number] ####Process Safety Engineer: HANS PAULSON ([id number])[facility] ([facility])[address] [place] [address] Erythrocyte distribution width (RBC) [Ratio] 13.4 % Normal 11.5-15.0 [facility] Comment on above: Performed By: #### L [id number] ####Process Safety Engineer: HANS PAULSON ([id number])[facility] [place] ([facility])[address] [place] [address] Hematocrit (Bld) [Volume fraction] 37.0 % Normal 35.0-47.0 [facility] Comment on above: Performed By: #### L [id number] ####Process Safety Engineer: HANS LORENE ([id number])[facility] ([facility] [place] [address] Hemoglobin (Bld) [Mass/Vol] 11.2 g/dL Low 11.7-16.0 [facility] Comment on above: Performed By: #### L [id number] ####Process Safety Engineer: HANS PAULSON ([id number])[facility] ([facility] [place] [address] IMMATURE GRANS % 0.3 % Normal 0.0-2.0 [facility] Comment on above: Performed By: #### L [id number] ####Process Safety Engineer: HANS PAULSON ([id number])[facility] ([facility] [place] [address] IMMATURE GRANS ABSOLUTE 0.0 10*3/uL Normal <0.1 [facility] Comment on above: Performed By: #### L [id number] ####Process Safety Engineer: HANS LORENE ([id number])[facility] [place] [address] Lymphocytes (Bld) [#/Vol] 1.0 10*3/uL Normal 1.0-4.3 [facility] Comment on above: Performed By: #### L [id number] ####Process Safety Engineer: HANS LORENE ([id number])[facility] [place] [address] Lymphocytes/100 WBC (Bld) 10.7 % Low 15.0-45.0 [facility] Comment on above: Performed By: #### L [id number] ####Process Safety Engineer: HANS WALDROPKimESCOBAR ([id number])[place] ([facility])[address] MCH (RBC) [Entitic mass] 31.3 pg Normal 26.0-34.0 [facility] Comment on above: Performed By: #### L [id number] ####Process Safety Engineer: HANS LORENE ([id number])[facility] ([facility])[address] MCHC 30.3 % Low 30.5-36.0 [facility] Comment on above: Performed By: #### L [id number] ####Process Safety Engineer: HANS LORENE ([id number])[facility] ([facility])[address] [place] [address] MCV (RBC) [Entitic vol] 103.4 fL High 77.0-99.0 [facility] Comment on above: Performed By: #### L [id number] ####Process Safety Engineer: HANS ALCANTARESCOBAR ([id number])[facility] [place] ([facility])[address] Monocytes (Bld) [#/Vol] 0.5 10*3/uL Normal 0.0-0.9 [facility] Comment on above: Performed By: #### L [id number] ####Process Safety Engineer: HANS PAULSON ([id number])[facility] [place] ([facility])[address] Monocytes/100 WBC (Bld) 5.5 % Normal 5.0-13.0 [facility] Comment on above: Performed By: #### L [id number] ####Process Safety Engineer: HANS ALCANTARESCOBAR ([id number])[facility] ([facility])[address] NEUTROPHILS ABSOLUTE 7.2 10*3/uL Normal 1.8-7.5 [facility] Comment on above: Performed By: #### L [id number] ####Process Safety Engineer: HANS WALDROPKimESCOBAR ([id number])[facility] [place] ([facility])[address] Neutrophils/100 WBC (Bld) 80.4 % Normal 38.0-82.0 [facility] Comment on above: Performed By: #### L [id number] ####Process Safety Engineer: HANS LORENE ([id number])[facility] ([facility])[address] NRBC 0.0 /100 WBCs Normal 0.0-2.0 [facility] Comment on above: Performed By: #### L [id number] ####Process Safety Engineer: HANS LORENE ([id number])[facility] ([facility])[address] Platelet mean volume (Bld) [Entitic vol] 9.5 fL Normal 9.0-12.7 [facility] Comment on above: Performed By: #### L [id number] ####Process Safety Engineer: HANS LORENE ([id number])[facility] ([facility])[address] Platelets (Bld) [#/Vol] 225 10*3/uL Normal 140-440 [facility] Comment on above: Performed By: #### L [id number] ####Process Safety Engineer: HANS ALCANTARESCOBAR ([id number])[facility] ([facility])[address] RBC (Bld) [#/Vol] 3.58 10*6/uL Low 3.80-5.20 [facility] Comment on above: Performed By: #### L [id number] ####Process Safety Engineer: HANS ALCANTARESCOBAR ([id number])[facility] ([facility])[address] WBC (Bld) [#/Vol] 8.9 10*3/uL Normal 3.6-10.7 [facility] Comment on above: Performed By: #### L [id number] ####Process Safety Engineer: HANS PAULSON ([id number])[place] ([facility])[address] [place] [address] DARIANOVanna 07-30-2024 CNOV Office Visit (FAMDNA ) GONZALO DELUCA ([id number]) 1955 F Date Time Provider Department 07/30/24 3:00 PM HERMINIA CASE During your visit today, we recorded the following information about you: Temperature Pulse Blood pressure Weight 98.4 degrees 106/minute 120/78 40.6 kg Height 1.641 m Herminia Case MD 07/30/2024 4:33 PM Signed 07/30/2024 Recording using Pharmacy [employer] software for draft documentation of the visit was discussed with the patient/authorized agency sales representative; all questions welcomed and answered. Patient/authorized agency sales representative agreed to proceed HPI: Gonzalo [...] Psychiatric: ( (more content not included)... Normal [facility] COMPLETE URINALYSIS WITH REF FAMILIA TO [facility] 07-30-2024 AMORPHOUS CRYSTALS (#/HPF) IN URINE Many Abnormal Negative [facility] Comment on above: Performed By: #### L [id number] ####Process Safety Engineer: HANS PAULSON ([id number])[facility] ([facility])[address] [place] [address] BACTERIA (#/HPF) IN URINE Negative Normal Negative [facility] Comment on above: Performed By: #### L [id number] ####Process Safety Engineer: HANS PAULSON ([id number])[facility] ([facility])[address] [place] [address] BILIRUBIN, TOTAL PRESENCE IN URINE Negative Normal Negative [facility] Comment on above: Performed By: #### L [id number] ####Process Safety Engineer: HANS PAULSON ([id number])[facility] [place] ([facility])[address] Clarity (U) Turbid Abnormal Clear [facility] Comment on above: Performed By: #### L [id number] ####Process Safety Engineer: HANS WALDROPKimESCOBAR ([id number])[facility] ([facility])[address] Color (U) Yellow Normal Lt. Yellow [facility] Comment on above: Performed By: #### L [id number] ####Process Safety Engineer: HANS PAULSON ([id number])[facility] ([facility])[address] GLUCOSE (MG/DL) IN URINE Normal Normal Normal (<70 ) [facility] Comment on above: Performed By: #### L [id number] ####Process Safety Engineer: HANS PAULSON ([id number])[facility] ([facility])[address] HEMOGLOBIN PRESENCE IN URINE Negative Normal Negative [facility] Comment on above: Performed By: #### L [id number] ####Process Safety Engineer: HANS PAULSON ([id number])[facility] (HLAB)[address] HYALINE CASTS (#/LPF) IN URINE SEDIMENT BY MICROSCOPY 0-2 Abnormal Negative [facility] Comment on above: Performed By: #### L [id number] ####Process Safety Engineer: HANS PAULSON ([id number])[facility] (SB[facility])[address] [place] [address] [place] Ketones Ql (U) Negative Normal Negative [facility] Comment on above: Performed By: #### L [id number] ####Process Safety Engineer: HANS PAULSON ([id number])[facility] ([facility])[address] LEUKOCYTE ESTERASE PRESENCE IN URINE BY TEST STRIP 25 Sandra/uL Abnormal Negative [facility] Comment on above: Performed By: #### L [id number] ####Process Safety Engineer: HANS ALCANTARESCOBAR ([id number])[facility] [place] (SB[facility])[address] [place] [address] [place] MUCUS (#/LPF) IN URINE SEDIMENT Few Normal Negative [facility] Comment on above: Performed By: #### L [id number] ####Process Safety Engineer: HANS WALDROPBOOESCOBAR ([id number])[facility] [place] ([facility])[address] NITRITE PRESENCE IN URINE Negative Normal Negative [facility] Comment on above: Performed By: #### L [id number] ####Process Safety Engineer: HANS WALDROPIVELISSE ([id number])[facility] [place] ([facility])[address] pH (U) 7.5 [pH] Normal 5.0-8.0 [facility] Comment on above: Performed By: #### L [id number] ####Process Safety Engineer: HANS ALCANTARESCOBAR ([id number])[facility] ([facility])[address] Protein (U) [Mass/Vol] 10 mg/dL Abnormal Negative [facility] Comment on above: Performed By: #### L [id number] ####Process Safety Engineer: HANS ALCANTARESCOBAR ([id number])[facility] ([facility])[address] [place] [address] [place] RBC (#/HPF) IN URINE SEDIMENT 0-2 Normal 0-2 [facility] Comment on above: Performed By: #### L [id number] ####Process Safety Engineer: HANS WALDROPBOOESCOBAR ([id number])[facility] ([facility])[address] Specific gravity (U) [Rel density] 1.023 Normal 1.005-1.030 [facility] Comment on above: Result Comment: KYM R COMMENTS:A specimen with <=10 WBC is not consistent with inflammation. This specimen will not reflex to a urine culture. Performed By: #### L [id number] ####Process Safety Engineer: HANS PAULSON ([id number])[facility] [place] (SB[facility])[address] SQUAMOUS EPITHELIAL CELLS (#/HPF) IN URINE SEDIMENT 0-2 Normal 3-5 [facility] Comment on above: Performed By: #### L [id number] ####Process Safety Engineer: HANS PAULSON ([id number])[facility] [place] ([facility])[address] UROBILINOGEN (MG/DL) IN URINE Normal Normal Normal (0-1) [facility] Comment on above: Performed By: #### L [id number] ####Process Safety Engineer: HANS PAULSON ([id number])[facility] [place] (SB[facility])[address] [place] [address] WBC (LEUKOCYTE) (#/HPF) IN URINE SEDIMENT 3-5 Normal 0-5 [facility] Comment on above: Performed By: #### L [id number] ####Process Safety Engineer: HANS PAULSON ([id number])[facility] (SB[facility])[address] [place] [address] Cobalamin (Vitamin B12) [Mas s/Vol]on 07-30-2024 Interpretation and review of laboratory results Normal [facility] ECG 12-LEADon 07-30-2024 ECG 12-LEAD IMPRESSION: Sinus rhythm Left axis deviation Electronically Signed On 07-30-2024 21:23:27 EDT by Evelio Sterling Normal [facility] ED Provider Noteon ED Provider Note Normal [facility] FOLATEon 07-30-2024 FOLATE RESULT 5.2 ng/mL Low 7.0-31.4 [facility] Comment on above: Performed By: #### L AB99, [id number], LAB69, LAB15, RQB039, LAB67, YGC200, LAB20, [id number] ####Process Safety Engineer: HANS PAULSON ([id number])[facility] [place] (SB[facility]AB)[address] [place] [address] [place] Folate [Mass/Vol]on 07-31-19 Interpretation and review of laboratory results Abnormal [facility] HEPATIC FUNCTION PANELon Albumin [Mass/Vol] 3.0 g/dL Low 3.4-4.8 [facility] Comment on above: Performed By: #### L AB99, [id number], LAB69, LAB15, QZS024, LAB67, NQQ201, LAB20, [id number] ####Process Safety Engineer: HANS PAULSON ([id number])[facility] ([facility])[address] ALP [Catalytic activity/Vol] 97 U/L Normal 40-150 [facility] Comment on above: Performed By: #### L AB99, [id number], LAB69, LAB15, ZXT532, LAB67, QZJ305, LAB20, [id number] ####Process Safety Engineer: HANS PAULSON ([id number])[facility] ([facility])[address] ALT [Catalytic activity/Vol] 10 U/L Normal <30 [facility] Comment on above: Performed By: #### L AB99, GEH134, LAB69, LAB15, SND614, LAB67, WQV071, LAB20, [id number] ####Process Safety Engineer: HANS PAULSON ([id number])[facility] ([facility])[address] [place] [address] AST [Catalytic activity/Vol] 21 U/L Normal <34 [facility] Comment on above: Performed By: #### L AB99, CVV254, LAB69, LAB15, DCL336, LAB67, FRO960, LAB20, [id number] ####Process Safety Engineer: HANS PAULSON ([id number])[facility] ([facility])[address] Bilirubin [Mass/Vol] 0.2 mg/dL Normal <1.2 [facility] Comment on above: Performed By: #### L AB99, [id number], LAB69, LAB15, ZPW382, LAB67, JYV962, LAB20, [id number] ####Process Safety Engineer: HANS PAULSON ([id number])[facility] (SB[facility])[address] [place] [address] Bilirubin.indirect [Mass/Vol] 0.1 mg/dL Normal <0.5 [facility] Comment on above: Performed By: #### L AB99, ASW964, LAB69, LAB15, GIM012, LAB67, UIJ980, LAB20, [id number] ####Process Safety Engineer: HANS PAULSON ([id number])[facility] (SBAB)[address] [place] [address] Protein [Mass/Vol] 6.5 g/dL Normal 6.4-8.3 [facility] Comment on above: Result Comment: Seru m protein values are higher than plasma values. Samples from recumbent persons are lower by up to 0.5 g/dL as compared to ambulatory persons. After 60 years values are lower by up to 0.2 g/dL. Performed By: #### L AB99, [id number], LAB69, LAB15, HZY801, LAB67, RGT954, LAB20, [id number] ####Process Safety Engineer: HANS PAULSON ([id number])[facility] ([facility])[address] [place] [address] Hepatic function 2000 panelo n 07-30-2024 Albumin [Mass/Vol] 3 g/dL Low 3.4 - 4.8 g/dL [facility] ALP [Catalytic activity/Vol] 97 U/L 40 - 150 U/L [facility] ALT [Catalytic activity/Vol] 10 U/L [facility] U/L [facility] AST [Catalytic activity/Vol] 21 U/L [facility] - 34 U/L [facility] [employer] Bilirubin [Mass/Vol] 0.2 mg/dL [facility] - 1.2 mg/dL [facility] Bilirubin.conjugated [Mass/Vol] 0.1 mg/dL [facility] - 0.5 mg/dL [facility] Protein [Mass/Vol] 6.5 g/dL 6.4 - 8.3 g/dL [facility] Comment on above: Serum protein values are higher than plasma values. Samples from recumbent persons are lower by up to 0.5 g/dL as compared to ambulatory persons. After 60 years values are lower by up to 0.2 g/dL. LIPASEon 07-30-2024 Lipase [Catalytic activity/Vol] 18 U/L Normal <55 [facility] Comment on above: Performed By: #### L AB99, OLT300, LAB69, LAB15, IZR299, LAB67, IDM942, LAB20, [id number] ####Process Safety Engineer: HANS PAULSON ([id number])[facility] ([facility])[address] Laboratory - Chemistry and C hemistry - challengeon 07-30-2024 Folate [Mass/Vol] 5.2 ng/mL Low 7.0 - 31.4 ng/mL [facility] Cobalamin (Vitamin B12) [Mass/Vol] 639 pg/mL 213 - 816 pg/mL [facility] Lipase [Catalytic activity/Vol] 18 U/L NINF - 55 U/L [facility] Magnesium [Mass/Vol] 1.9 mg/dL 1.6 - 2 .6 mg/dL [facility] MAGNESIUMon 07-30-2024 Magnesium [Mass/Vol] 1.9 mg/dL Normal 1.6-2.6 [facility] Comment on above: Result Comment: KYM [place]more COMMENTS:Higher values can be expected in females during menses. Performed By: #### L AB99, IGX944, LAB69, LAB15, HDT741, LAB67, DHT129, LAB20, [id number] ####Process Safety Engineer: HANS PAULSON ([id number])[facility] ([facility])[address] Magnesium [Mass/Vol]on 07-30 Higher values can be expected in females during menses. [facility] [employer] No Panel InformationOrdered By: Evelio Sterling on 07-30-2024 P [place] 53 degrees [facility] [employer] Work Phone: DE Interval 137 ms [facility] [employer] Work Phone: QRS [place] -35 degrees [facility] [employer] Work Phone: QRSD Interval 99 ms [employer] Work Phone: QT Interval 350 ms [employer] Work Phone: QTC Interval 439 ms [employer] Work Phone: T Wave [place] 43 degrees [employer] Work Phone: [employer] Work Phone: No Panel Informationon 07-30 Sinus rhythm Left axis deviation Electronically Signed On 07-30-2024 21:23:27 EDT by Evelio Reyez DO - 07/30/2024 IMPRESSION: Sinus rhythm Left axis deviation Electronically Signed On 07-30-2024 21:23:27 EDT by Evelio Sterling [facility] [employer] Interpretation and review of laboratory results Abnormal [employer] Interpretation and review of laboratory results Normal [facility] [employer] Luis E Keating DO 07/30/2024 9:53 PM Splint Application Performed by: Luis E Keating DO Authorized by: Luis E Keating DO Consent: Consent obtained: Verbal Consent given by: Patient Risks, benefits, and alternatives were discussed: yes Risks discussed: Pain, numbness and swelling Alternatives discussed: Delayed treatment and referral [place] protocol: Patient identity confirmed: Verbally with patient [...] no immediate complications Post-procedure imaging: not applicable [employer] PROCALCITONIN TESTon 025 PROCALCITONIN 0.03 ng/mL Normal <0.07 [employer] [facility] Comment on above: Result Comment: KYM R COMMENTS:PCT <0.50 = Low risk of severe sepsis and/or septic shock.PCT >2.00 = High risk of severe sepsis and/or septic shock. Performed By: #### L AB99, [id number], LAB69, LAB15, LWK452, LAB67, SYR498, LAB20, [id number] ####Process Safety Engineer: HANS PAULSON ([id number])[facility] (SB[facility])[address] [place] [address] THYROID STIMULATING HORMONEo n 07-30-2024 THYROID STIMULATING HORMONE 0.28 uIU/mL Low 0.35-4.94 [facility] Comment on above: Performed By: #### L AB99, [id number], LAB69, LAB15, RIN151, LAB67, SLD610, LAB20, [id number] ####Process Safety Engineer: HANS PAULSON ([id number])[facility] ([facility])[address] [place] [address] Urinalysis complete panel (U )on 07-30-2024 Amorphous Crystals, Urine Many Abnormal Negative /HPF [facility] Bacteria LM.HPF (Urine sed) [#/Area] Negative Negative /HPF [facility] Bilirubin Ql (U) Negative Negative mg/dL [facility] Clarity (U) Turbid Abnormal Clear [facility] Color (U) Yellow Lt. Yellow [facility] Epithelial cells.squamous LM.HPF (Urine sed) [#/Area] 0-2 [facility] Ql (U) Normal Normal (<70) mg/dL [facility] Hemoglobin Ql (U) Negative Negative mg/dL [facility] Hyaline casts Auto (Urine sed) [#/Area] 0-2 Abnormal Negative /LPF [facility] Interpretation and review of laboratory results Abnormal [facility] Ketones (U) [Mass/Vol] Negative Negat [place] mg/dL [facility] Leukocyte esterase Test strip Ql (U) 25 Abnormal Negative Sandra/uL [facility] Mucus LM.HPF (Urine sed) [#/Area] Few Negative /LPF [facility] Nitrite Ql (U) Negative Negative [facility] th pH (U) 7.5 [pH] 5.0 - 8.0 pH [facility] Protein (U) [Mass/Vol] 10 mg/dL Abnormal Negative [facility] RBC LM.HPF (Urine sed) [#/Area] 0-2 [facility] Specific gravity (U) [Rel density] 1.023 1.005 - 1.030 [facility] Urobilinogen (U) [Mass/Vol] Normal Normal (0-1) mg/dL [facility] WBC LM.HPF (Urine sed) [#/Area] 3-5 [facility] A specimen with <=10 WBC is not consistent with inflammation. This specimen will not reflex to a urine culture. [facility] VITAMIN B12on 07-30-2024 Cobalamin (Vitamin B12) [Mass/Vol] 639 pg/mL Normal 213-816 [facility] Comment on above: Performed By: #### L AB99, [id number], LAB69, LAB15, FHG283, LAB67, ZYG834, LAB20, [id number] ####Process Safety Engineer: HANS PAULSON ([id number])[facility] ([facility])[address] [place] [address] Vital signsOrdered By: Evelio Sterling on 07-30-2024 Heart rate 95 /min bpm [facility] Work Phone: XR Chest Single viewon [...] demonstrated. Bones are osteopenic. Other findings: None. [facility] Honorio Andino MD - [...] Electronically Signed Date/Time: 07/30/2024 5:42 PM EDT [facility] Radiology Study observation (narrative) [facility] alth XR Elbow - left 2 Viewson Acute, obliquely oriented, slightly displaced and impacted fracture through the supracondylar region of the left elbow with associated soft tissue swelling. Report Dictated on Electronically Signed By: Honorio Andino MD Electronically Signed Date/Time: 07/30/2024 5:46 PM EDT [facility] Patient [...] radiopaque foreign body. [facility] Honorio Andino MD - 07/30/2024 Patient Name: [facility]ONZALO DELUCA : 1955 [id number] Exam Date/Time: 07/30/2024 17:32 Procedure: XR ELBOW [...] Electronically Signed Date/Time: 07/30/2024 5:46 PM EDT [facility] Rad[facility]narrative[facility] El[facility] - left 2 ViewsOrder ed By: Honorio Andino on 07-30-2024 [facility] Work Phone: Progress Noteon 07-24-2024 Progress Note Call placed to patient, no show for port flush appointment today. LVM to return call to get rescheduled. Normal [facility] ([id number]) 1955 F Date Time Provider Department 06/30/24 HERMINIA CASE During your visit today, we recorded the following information about you: Whit Shay LPN 06/30/2024 10:14 AM Signed Type of letter/form/fax request - Assisted living orders Form received from [facility] on 06/29/24 floor and placed on MD desk () for completion. Completed form needs to be faxed to [phone]. Route to [place] when form completed for processing Leona Castañeda APRN.[place] 07/02/2024 2:33 PM Signed Orders signed and in outbox. Please fax. Thank you, Leona Castañeda APRN.Whit Munguia LPN 07/02/2024 2:54 PM Signed Request completed and faxed. Allergies As of Date: 06/30/2024 Noted Allergy Reaction SEASONAL ALLERGIES 08/16/2017 5 - Intolerance Date Reviewed: 12/30/2023 Reviewed by: Joaquina Martinez APRN.[facility] - Fully Assessed Reason for Visit: [...] Encounter Status:Closed by WHIT SHAY on 07/02/24 [facility] CNPNon 06-07-2024 CNPN Telephone (HCSIND) GONZALO DELUCA ([id number]) 1955 F Date Time Provider Department 06/07/24 [...] 06/10/2024 8:38 AM Signed Herminia Case MD, [facility] received a referral for [facility] services. We have made several [...] Date Reviewed: 12/30/2023 Reviewed by: Joaquina Martinez APRN.NAILING MACHINE OPERATOR - Fully Assessed Reason for Visit: [...] hysterectomy [Z90.710] (more content not included)... [facility] GONZ[facility] DELUCA ([id number]) 1955 F Date Time Provider Department 06/07/24 MADDI VALERO HCSIND During your visit today, we recorded the following information about you: Allergies As of Date: 06/07/2024 Noted Allergy Reaction SEASONAL ALLERGIES 08/16/2017 5 - Intolerance Date Reviewed: 12/30/2023 Reviewed by: Joaquina Martinez APRN.[facility] - Fully Assessed Reason for Visit: [...] Encounter Status:Closed by MADDI VALERO on 06/07/24 [facility] Helen 06-06-2024 ANUEL Telephone (HCSIND) GONZALO DELUCA ([id number]) 1955 F Date Time Provider Department 06/06/24 HERMINIA CASE During your visit today, we recorded the following information about you: Erna Diaz LPN 06/06/2024 1:02 PM Signed Herminia Case MD Thank you for the referral for Gonzalo Deluca to receive home care services through [facility]. At this time, the office [...] Date Reviewed: 12/30/2023 Reviewed by: Joaquina Martinez APRN.NAILING MACHINE OPERATOR - Fully Assessed Reason for Visit: [...] access [I87.8] more content not included)... Normal [facility] 36on 06-05-2024 36 Pt called with christian padron to schedule appt with FILM AND VIDEO EDITOR. Made appt with pt being past due. Pt was supposed to be seen 05/14 for 6 month surveillance appt. Called [facility] weaver and scheduled port flush for 06/12/24 at 2:00 pm. Normal [facility] 36 Patient called to obtain an order for a port flush and/or removal. Patient not sure if she needs to make an appointment. Patient would like schedule in [place]. Verified contact number for patient is correct. Normal [facility] Basic metabolic 1998 panelon 04-28-2024 Anion gap [Moles/Vol] 8 mmol/L 3 - 13 mmol/L [facility] Calcium [Mass/Vol] 9.1 mg/dL 8.8 - 10. 0 mg/dL [facility] Chloride [Moles/Vol] 102 mmol/L 98 - 10 7 mmol/L [facility] CO2 [Moles/Vol] 33 mmol/L High 23 - 31 mmol/L [facility] Creatinine [Mass/Vol] 0.78 mg/dL 0.57 - 1.11 mg/dL [facility] GFR/1.73 sq M.predicted (S/P/Bld) [Vol rate/Area] 83.4 mL/min - PINF [facility] Comment on above: Calculation based on the Chronic Kidney Disease Epidemiology Collaboration (CKD-EPI) equation refit without adjustment for race Glucose [Mass/Vol] 179 mg/dL High 82 - 115 mg/dL [facility] Interpretation and review of laboratory results Abnormal [facility] Potassium [Moles/Vol] 3.6 mmol/L 3.5 - 5.1 mmol/L [facility] Comment on above: Plasma potassium martín ues may be up to 0.5 mmol/L lower than serum values. Sodium [Moles/Vol] 143 mmol/L 136 - 145 mmol/L [facility] Urea nitrogen [Mass/Vol] 13 mg/dL 9 - 23 mg/d L [facility] CBC W Auto Differential pane l (Bld)Ordered By: Hakeem Cruz on 04-28-2024 Basophils (Bld) [#/Vol] 0 10*3/uL 0.0 - 0.2 10*3/uL [facility] Basophils/100 WBC (Bld) 0.6 % 0.0 - 2.0 % [facility] Eosinophils (Bld) [#/Vol] 0.3 10*3/uL 0.0 - 0.5 10*3/uL [facility] Eosinophils/100 WBC (Bld) 4 % 0.0 - 6.0 % [facility] Erythrocyte distribution width (RBC) [Ratio] 13.2 % 11.5 - 15.0 % [facility] Hematocrit (Bld) [Volume fraction] 37.3 % 35.0 - 47.0 % [facility] Hemoglobin (Bld) [Mass/Vol] 11.5 g/dL Low 11.7 - 16.0 g/dL [facility] [employer] Immature granulocytes (Bld) [#/Vol] 0 10*3/uL NINF - 0.1 10*3/uL [facility] Immature granulocytes/100 WBC (Bld) 0.5 % 0.0 - 2.0 % [facility] Interpretation and review of laboratory results Abnormal [facility] Lymphocytes (Bld) [#/Vol] 0.7 10*3/uL Low 1.0 - 4.3 10*3/uL [facility] Lymphocytes/100 WBC (Bld) 10.6 % Low 15.0 - 45.0 % [facility] MCH (RBC) [Entitic mass] 30.9 pg 26. 0 - 34.0 pg [facility] MCHC (RBC) [Mass/Vol] 30.8 % 30.5 - 36.0 % [facility] MCV (RBC) [Entitic vol] 100.3 fL High 77.0 - 99.0 fL [facility] [employer] Monocytes (Bld) [#/Vol] 0.4 10*3/uL 0.0 - 0.9 10*3/uL [facility] Monocytes/100 WBC (Bld) 6.5 % 5.0 - 13.0 % [facility] Neutrophils (Bld) [#/Vol] 5.1 10*3/uL 1.8 - 7.5 10*3/uL [facility] Neutrophils/100 WBC (Bld) 77.8 % 38.0 - 82.0 % [facility] Nucleated RBC/100 WBC (Bld) [Ratio] 0 % [facility] Platelet mean volume (Bld) [Entitic vol] 10 fL 9.0 - 12.7 fL [facility] Platelets (Bld) [#/Vol] 165 10*3/uL 140 - 440 10*3/uL [facility] RBC (Bld) [#/Vol] 3.72 10*6/uL Low 3.80 - 5.2 0 10*6/uL [facility] WBC (Bld) [#/Vol] 6.5 10*3/uL 3.6 - 10.7 10*3/uL [facility] CT CERVICAL SPINE WO IV CONT RASTon 04-28-2024 CT CERVICAL SPINE WO IV CONTRAST Normal [facility] CT Cervical spine WO contras ton [...] the paranasal sinuses shows no air-fluid levels. [facility] Ramses Gamble MD - 04/28/2024 Patient Name: [...] Electronically Signed Date/Time: 04/28/2024 12:50 AM EST [facility] Radiology Study observation (narrative) [facility] alth CT HEAD WO IV CONTRASTon CT HEAD WO IV CONTRAST Normal [facility] CT Head WO contraston 2024 Patient Name: [...] the paranasal sinuses shows no air-fluid levels. [facility] Ramses Gamble MD - 04/28/2024 [...] Electronically Signed Date/Time: 04/28/2024 12:50 AM EST [facility] Radiology Study observation (narrative) [facility] jackson ECG 12-LEADon 04-28-2024 ECG 12-LEAD IMPRESSION: Sinus rhythm with normal rate, intervals and QRS duration. No acute ischemic changes. Inferior Q waves, old Electronically Signed On 04-28-2024 14:40:42 EST by Freddy Ibarra Normal [facility] [employer] Laboratory - Chemistry and C hemistry - challengeon 04-28-2024 Magnesium [Mass/Vol] 2 mg/dL 1.6 - 2 .6 mg/dL [facility] Magnesium [Mass/Vol]on 04-28 Interpretation and review of laboratory results Normal [facility] [employer] Higher values can be expected in females during menses. [facility] [employer] No Panel Informationon 04-28 Impression: No acute [...] MD Electronically Signed Date/Time: 04/28/2024 12:50 AM [facility] [employer] Interpretation and review of laboratory results Normal [employer] Troponin HS Serial Baseline 4 ng/L NINF - 14 ng/L [facility] Comment on above: In individuals prese nting with symptoms > 2h, a baseline troponin <= 5 ng/L suggests acute cardiac injury is unlikely and further serial testing is generally not indicated. [employer] XR Elbow - left 3 Viewson Findings and impression: Left elbow three views performed. Bone density is normal. No fracture or dislocation seen. Report Dictated on Electronically Signed By: Ramses Gamble MD Electronically Signed Date/Time: 04/28/2024 12:23 AM [facility] Patient Name: GONZALO DELUCA : 1955 Exam Date/Time: 04/28/2024 00:01 Procedure: XR ELBOW 3+ VIEWS LEFT Ordering Provider: ALTAMIRANO JEFFREY Reason For Exam: Elbow trauma Indication: Elbow trauma. [facility] Ramses Gamble MD - 04/28/2024 [...] Electronically Signed Date/Time: 04/28/2024 12:23 AM EST [facility] Radiology Study observation (narrative) [facility] XR Elbow - left 3 ViewsOrder ed By: Ramses Gamble on 04-28-2024 [facility] Work Phone: BASIC METABOLIC PANELon 02-0 Anion gap [Moles/Vol] 8 mmol/L Normal 3-13 [facility] Comment on above: Performed By: #### Arsenio AB103, LAB15, [id number] ####Process Safety Engineer: HANS PAULSON ([id number])[facility] (SBAB)[address] Calcium [Mass/Vol] 9.1 mg/dL Normal 8.8-10.0 [facility] Comment on above: Performed By: #### Arsenio AB103, LAB15, [id number] ####Process Safety Engineer: HANS PAULSON ([id number])[facility] (SBHLAB)[address] Chloride [Moles/Vol] 102 mmol/L Normal 98-107 [facility] Comment on above: Performed By: #### Arsenio AB103, LAB15, [id number] ####Process Safety Engineer: HANS PAULSON ([id number])[facility] (SBHL[facility])[address] [place] [address] [place] CO2 [Moles/Vol] 33 mmol/L High 23-31 [facility] Comment on above: Performed By: #### L AB103, LAB15, [id number] ####Process Safety Engineer: HANS PAULSON ([id number])[facility] (SBHLAB)[address] [place] [address] [place] Creatinine [Mass/Vol] 0.78 mg/dL Normal 0.57-1.11 [facility] Comment on above: Performed By: #### Arsenio RAGLAND, LAB15, [id number] ####Process Safety Engineer: HANS PAULSON ([id number])[facility] (SB[facility])[address] GLOMERULAR FILTRATION RATE ML/MIN/1.73 SQ M.PREDICTED 83.4 mL/min/1.73m*2 Normal >60.0 [facility] Comment on above: Result Comment: Calc ulation based on the Chronic Kidney Disease Epidemiology Collaboration (CKD-EPI) equation refit without adjustment for race Performed By: #### Arsenio RAGLAND, LAB15, [id number] ####Process Safety Engineer: HANS PAULSON ([id number])[facility] ([facility])[address] Glucose [Mass/Vol] 179 mg/dL High 82-115 [facility] Comment on above: Performed By: #### Arsenio RAGLAND, LAB15, [id number] ####Process Safety Engineer: HANS PAULOSN ([id number])[facility] [place] [address] [place] Potassium [Moles/Vol] 3.6 mmol/L Normal 3.5-5.1 [facility] Comment on above: Result Comment: [facility] potassium values may be up to 0.5 mmol/L lower than serum values. Performed By: #### Arsenio RAGLAND, LAB15, [id number] ####Process Safety Engineer: HANS PAULSON ([id number])[facility] (SBHLAB)[address] [place] [address] [place] Sodium [Moles/Vol] 143 mmol/L Normal 136-145 [facility] Comment on above: Performed By: #### Arsenio RAGLAND, LAB15, [id number] ####Process Safety Engineer: HANS PAULSON ([id number])[facility] (SBHLAB)[address] [place] [address] [place] Urea nitrogen [Mass/Vol] 13 mg/dL Normal 9-23 [facility] Comment on above: Performed By: #### L AB103, LAB15, [id number] ####Process Safety Engineer: HANS PAULSON ([id number])[facility] (SBHLAB)[address] CBC WITH AUTO DIFFERENTIALon 04-27-2024 Basophils (Bld) [#/Vol] 0.0 10*3/uL Normal 0.0-0.2 [facility] Comment on above: Performed By: #### L [id number] ####Process Safety Engineer: HANS PAULSON ([id number])[facility] (SBHLAB)[address] Basophils/100 WBC (Bld) 0.6 % Normal 0.0-2.0 [facility] Comment on above: Performed By: #### L [id number] ####Process Safety Engineer: HANS PAULSON ([id number])[facility] (SBHLAB)[address] Eosinophils (Bld) [#/Vol] 0.3 10*3/uL Normal 0.0-0.5 [facility] Comment on above: Performed By: #### L [id number] ####Process Safety Engineer: HANS PAULSON ([id number])[facility] (SBHLAB)[address] Eosinophils/100 WBC (Bld) 4.0 % Normal 0.0-6.0 [facility] Comment on above: Performed By: #### L [id number] ####Process Safety Engineer: HANS PAULSON ([id number])[facility] (SBHL[facility])[address] Erythrocyte distribution width (RBC) [Ratio] 13.2 % Normal 11.5-15.0 [facility] Comment on above: Performed By: #### L [id number] ####Process Safety Engineer: HANS PAULSON ([id number])[facility] ([facility])[address] Hematocrit (Bld) [Volume fraction] 37.3 % Normal 35.0-47.0 [facility] Comment on above: Performed By: #### L [id number] ####Process Safety Engineer: HANS ALCANTARESCOBAR ([id number])[facility] ([facility])[address] Hemoglobin (Bld) [Mass/Vol] 11.5 g/dL Low 11.7-16.0 [facility] Comment on above: Performed By: #### L [id number] ####Process Safety Engineer: HANS LORENE ([id number])[facility] ([facility])[address] [place] [address] IMMATURE GRANS % 0.5 % Normal 0.0-2.0 [facility] Comment on above: Performed By: #### L [id number] ####Process Safety Engineer: HANS ALCANTARESCOBAR ([id number])[facility] ([facility])[address] [place] [address] IMMATURE GRANS ABSOLUTE 0.0 10*3/uL Normal <0.1 [facility] Comment on above: Performed By: #### L [id number] ####Process Safety Engineer: HANS ALCANTARESCOBAR ([id number])[facility] ([facility])[address] [place] [address] Lymphocytes (Bld) [#/Vol] 0.7 10*3/uL Low 1.0-4.3 [facility] Comment on above: Performed By: #### L [id number] ####Process Safety Engineer: HANS ALCANTARESCOBAR ([id number])[facility] ([facility])[address] [place] [address] Lymphocytes/100 WBC (Bld) 10.6 % Low 15.0-45.0 [facility] Comment on above: Performed By: #### L [id number] ####Process Safety Engineer: HANS ALCANTARESCOBAR ([id number])[facility] ([facility])[address] [place] [address] MCH (RBC) [Entitic mass] 30.9 pg Normal 26.0-34.0 [facility] Comment on above: Performed By: #### L [id number] ####Process Safety Engineer: HANS PAULSON ([id number])[facility] (SBHLAB)[address] MCHC 30.8 % Normal 30.5-36.0 [facility] Comment on above: Performed By: #### L [id number] ####Process Safety Engineer: HANS ALCANTARESCOBAR ([id number])[facility] (SBHL[facility])[address] MCV (RBC) [Entitic vol] 100.3 fL High 77.0-99.0 S [facility] Comment on above: Performed By: #### L [id number] ####Process Safety Engineer: HANS PAULSON ([id number])[facility] ([facility]HL[facility])[address] Monocytes (Bld) [#/Vol] 0.4 10*3/uL Normal 0.0-0.9 [facility] Comment on above: Performed By: #### L [id number] ####Process Safety Engineer: HANS PAULSON ([id number])[facility] ([facility])[address] Monocytes/100 WBC (Bld) 6.5 % Normal 5.0-13.0 [facility] Comment on above: Performed By: #### L [id number] ####Process Safety Engineer: HANS PAULSON ([id number])[facility] ([facility])[address] NEUTROPHILS ABSOLUTE 5.1 10*3/uL Normal 1.8-7.5 [facility] Comment on above: Performed By: #### L [id number] ####Process Safety Engineer: HANS PAULSON ([id number])[facility] ([facility])[address] Neutrophils/100 WBC (Bld) 77.8 % Normal 38.0-82.0 [facility] Comment on above: Performed By: #### L [id number] ####Process Safety Engineer: HANS PAULSON ([id number])[facility] ([facility])[address] NRBC 0.0 /100 WBCs Normal 0.0-2.0 [facility] Comment on above: Performed By: #### L [id number] ####Process Safety Engineer: HANS PAULSON ([id number])[facility] ([facility])[address] Platelet mean volume (Bld) [Entitic vol] 10.0 fL Normal 9.0-12.7 [facility] Comment on above: Performed By: #### L [id number] ####Process Safety Engineer: HANS PAULSON ([id number])[facility] ([facility])[address] Platelets (Bld) [#/Vol] 165 10*3/uL Normal 140-440 [facility] Comment on above: Performed By: #### L [id number] ####Process Safety Engineer: HANS PAULSON ([id number])[facility] ([facility])[address] RBC (Bld) [#/Vol] 3.72 10*6/uL Low 3.80-5.20 [facility] Comment on above: Performed By: #### L [id number] ####Process Safety Engineer: HANS PAULSON ([id number])[facility] ([facility])[address] WBC (Bld) [#/Vol] 6.5 10*3/uL Normal 3.6-10.7 [facility] Comment on above: Performed By: #### L [id number] ####Process Safety Engineer: HANS PAULSON ([id number])[facility] ([facility])[address] ED Nursing Noteon 04-27-2024 ED Nursing Note Per ems, fall on carpeted floor. _ LOC but pt states she was dizzy and weak prior to fall. C/o L elbow and nose pain 2ndary fall Normal [facility] ED Provider Noteon ED Provider Note Normal [facility] HIGH SENSITIVITY TROPONIN, S ERIAL BASELINEon 04-27-2024 TROPONIN HS SERIAL BASELINE 4 ng/L Normal <=14 [facility] Comment on above: Result Comment: In i ndividuals presenting with symptoms > 2h, a baseline troponin <= 5 ng/L suggests acutecardiac injury is unlikely and further serial testing is generally not indicated. Performed By: #### L AB103, LAB15, [id number] ####Process Safety Engineer: HANS PAULSON ([id number])[facility] ([facility])[address] [place] [address] MAGNESIUMon 04-27-2024 Magnesium [Mass/Vol] 2.0 mg/dL Normal 1.6-2.6 [facility] Comment on above: Result Comment: KYM Gilmore COMMENTS:Higher values can be expected in females during menses. Performed By: #### L AB103, LAB15, [id number] ####Process Safety Engineer: HANS PAULSON ([id number])[facility] ([facility])[address] [place], [place] [address]Lupe 03-01-2024 CNPN Telephone (ANALIA) GONZALO DELUCA ([id number]) 1955 F Date Time Provider Department 03/01/24 [...] Date Reviewed: 12/30/2023 Reviewed by: Joaquina Martinez APRN.NAILING MACHINE OPERATOR - Fully Assessed Reason for Visit: [...] Encounter Status:Closed by WHIT SHAY on 03/05/24 [facility] 12-27-2023 NADEEMN Telephone (ANALIA) GONZALO DELUCA ([id number]) 1955 F Date Time Provider Department 12/27/23 HERMINIA CASE During your visit today, we recorded the following information about you: Whit Shay LPN 12/27/2023 12:51 PM Signed Type of letter/form/fax request - Home Health Care Orders Form received from [facility] on 12/26/23 floor and placed on MD desk () for completion. Completed form needs to be faxed to [phone]. Route to [place] when form completed for processing Whit Shay LPN 12/27/2023 3:31 PM Signed Request completed and faxed. Allergies As of Date: 12/27/2023 Noted Allergy Reaction SEASONAL ALLERGIES 08/16/2017 5 - Intolerance Date Reviewed: 09/08/2023 Reviewed by: Tate Weathers MA - Fully Assessed Reason for Visit: Orders [101] Prescriptions as of 12/27/2023 - alendronate (FOSAMAX) [...] Encounter Status:Closed by WHIT SHAY on 12/27/23 [facility]ONZ[facility] DEL[facility]CA ([id number]) 1955 F Date Time Provider Department 12/13/23 [facility] your visit today, we recorded the following information about you: Whit Shay LPN 12/13/2023 11:03 AM Signed Type of letter/form/fax request - Home Health Care Orders Form received from [facility] on 12/12/23 floor and placed on desk () for completion. Completed form needs to be faxed to [phone]. Route to [place] when form completed for processing Herminia Case [...] Encounter Status:Closed by WHIT SHAY on 12/14/23 [facility] 12-06-2023 CNPN Telephone (FAMDNA) GONZALO DELUCA ([id number]) 1955 Date Time Provider Department 12/06/23 [facility] During your visit today, we recorded the following information about you: Whit Shay LPN 12/06/2023 1:40 PM Signed Type of letter/form/fax request - Home Health Care Orders Plan of Care Certification Period-11/25/23 to 01/23/24 Form received from [facility] on 12/01/23 floor and placed on desk () for completion. Completed form needs to be faxed to [phone]. Route to [place] when form completed for processing Herminia Case [...] Encounter Status:Closed by WHIT SHAY on 12/06/23 [facility] 11-14-2023 CNPN Telephone (FAMDNA) GONZALO DELUCA ([id number]) 1955 F Date Time Provider Department 11/14/23 HERMINIA CASE During your visit today, we recorded the following information about you: Whit Shay LPN 11/14/2023 11:47 AM Signed Type of letter/form/fax request - Home Health Care Orders Form received from [facility] on 11/13/23 floor and placed on desk () for completion. Completed form needs to be faxed to . Route to [place] when form completed for processing Herminia Case [...] Encounter Status:Closed by WHIT SHAY on 11/14/23 [facility] 10-28-2023 CNPN Telephone (FAMDNA) GONZALO DELUCA ([id number]) 1955 F Date Time Provider Department 10/28/23 HERMINIA CASE During your visit today, we recorded the following information about you: Whit Shay LPN 10/28/2023 9:46 AM Signed Type of letter/form/fax request - Home Health Care Orders Form received from [facility] on 10/27/23 floor and placed on desk () for completion. Completed form needs to be faxed to [phone]. Route to [place] when form completed for processing Herminia Case MD 10/28/2023 1:56 PM Signed Done. Whit Shay LPN 10/28/2023 1:58 PM Signed Request completed and faxed. Allergies As of Date: 10/28/2023 Noted Allergy Reaction SEASONAL ALLERGIES 08/16/2017 5 - Intolerance Date Reviewed: 09/08/2023 Reviewed by: aTte Weathers MA - Fully Assessed Reason for [...] Status:Closed by WHIT SHAY on 10/28/23 Normal [facility] CNPLupe 10-22-2023 CNPN Telephone (4CQ) GONZALO DELUCA ([id number]) 1955 F Date Time Provider Department 10/22/23 HERMINIA CASE 4CQ During your visit today, we recorded the following information about you: Elsy Caro 10/22/2023 11:53 AM Signed [facility] PT called to report that patient [...] Encounter Status:Closed by MELVA JUÁREZ on [facility] GONZALO DELUCA ([id number]) 1955 F Date Time Provider Department 10/18/23 HERMINIA CASE During your visit today, we recorded the following information about you: Whit Shay LPN 10/18/2023 3:01 PM Signed Type of letter/form/fax request - Home Health Care Orders Form received from [facility] on 10/18/23 floor and placed on MD desk () for completion. Completed form needs to be faxed to [phone]. Route to [place] when form completed for processing Whit Shay [...] Status:Closed by WHIT SHAY on 10/18/23 Normal [facility] CT Chest WO contraston 10-15 1. Severe [...] SYSTEM Patient Name: GONZALO DELUCA : 1955 [facility]#: [id number] Exam Date/Time: 10/16/2023 20:29 Procedure: CT CHEST [...] 10/16/2023 [facility] Name[facility] 1955 [id number] Exam Date/Time: 10/16/2023 20:29 Procedure: CT CHEST [...] Electronically Signed Date/Time: 10/16/2023 9:11 PM EDT [facility] Radiology Study observation (narrative) [facility] CT Chest WO contrastOrdered By: Roxie Kwon on 10-16-2023 [employer] Work Phone: XR Hip - left 3 [...] Electronically Signed Date/Time: 10/16/2023 8:46 PM EDT [facility] Radiology Study observation (narrative) Abe Cervantes 10-10-2023 NADEEMN Telephone ([facility]) GONZALO DELUCA ([id number]) 1955 F Date Time Provider Department 10/10/23 HERMINIA CASE During your visit today, we recorded the following information about you: Whit Shay LPN 10/10/2023 1:42 PM Signed Type of letter/form/fax request - Home Health Care Orders Form received from [facility] on 10/06/23 floor and placed on MD desk () for completion. Completed form needs to be faxed to [phone]. Route to [place] when form completed for processing Herminia Case [...] Encounter Status:Closed by WHIT SHAY on 10/11/23 [facility] [facility] 10-06-2023 CNPN Telephone (FAMDNA) GONZALO DELUCA ([id number]) 1955 F Date Time Provider Department 10/06/23 [...] @ Home Call patient at: at home [phone] (home) [phone] (cell) Was an appointment scheduled: No Closing [...] Status:Closed by JOAQUINA MARTINEZ on 10/06/23 Normal [facility] Basic metabolic 1998 panelon 09-22-2023 Anion gap [Moles/Vol] 10 mmol/L 3 - 13 mmol/L [facility] Calcium [Mass/Vol] 8.9 mg/dL 8.4 - 10. 4 mg/dL [facility] Chloride [Moles/Vol] 100 mmol/L 98 - 10 7 mmol/L [facility] CO2 [Moles/Vol] 30 mmol/L 22 - 30 mmol/L [facility] Creatinine [Mass/Vol] 0.39 mg/dL Low 0.52 - 1.04 mg/dL [facility] GFR/1.73 sq M.predicted MDRD (S/P/Bld) [Vol rate/Area] - PINF [facility] Comment on above: Calculation based on the Chronic Kidney Disease Epidemiology Collaboration (CKD-EPI) equation refit without adjustment for race Glucose [Mass/Vol] 109 mg/dL High 70 - 100 mg/dL [facility] Interpretation and review of laboratory results Abnormal [facility] Potassium [Moles/Vol] 4.2 mmol/L 3.5 - 5.1 mmol/L [facility] Sodium [Moles/Vol] 140 mmol/L 135 - 145 mmol/L [facility] Urea nitrogen [Mass/Vol] 11 mg/dL 7 - 17 mg/d L [facility] CBC W Auto Differential pane l (Bld)Ordered By: Rolando Shelton on 09-22-2023 Basophils (Bld) [#/Vol] 0.1 10*3/uL 0.0 - 0.2 10*3/uL [facility] Basophils/100 WBC (Bld) 0.5 % 0.0 - 2.0 % [facility] Eosinophils (Bld) [#/Vol] 0.1 10*3/uL 0.0 - 0.5 10*3/uL [facility] Eosinophils/100 WBC (Bld) 1.3 % 0.0 - 6.0 % [facility] Erythrocyte distribution width (RBC) [Ratio] 13.2 % 11.5 - 15.0 % [facility] Hematocrit (Bld) [Volume fraction] 37.5 % 35.0 - 47.0 % [facility] Hemoglobin (Bld) [Mass/Vol] 11.9 g/dL 11.7 - 16.0 g/dL [facility] Immature granulocytes (Bld) [#/Vol] 0.0 10*3/uL NINF - 0.1 10*3/uL [facility] Immature granulocytes/100 WBC (Bld) 0.3 % 0.0 - 2.0 % [facility] Interpretation and review of laboratory results Abnormal [facility] Lymphocytes (Bld) [#/Vol] 0.8 10*3/uL Low 1.0 - 4.3 10*3/uL [facility] Lymphocytes/100 WBC (Bld) 8.6 % Low 15.0 - 45.0 % [facility] MCH (RBC) [Entitic mass] 30.3 pg 26. 0 - 34.0 pg [facility] MCHC (RBC) [Mass/Vol] 31.7 % 30.5 - 36.0 % [facility] MCV (RBC) [Entitic vol] 95.4 fL 77.0 - 99.0 fL [facility] Monocytes (Bld) [#/Vol] 0.5 10*3/uL 0.0 - 0.9 10*3/uL [facility] Monocytes/100 WBC (Bld) 5.3 % 5.0 - 13.0 % [facility] Neutrophils (Bld) [#/Vol] 8.2 10*3/uL High 1.8 - 7.5 10*3/uL [facility] Neutrophils/100 WBC (Bld) 84.0 % High 38.0 - 82.0 % [facility] Nucleated RBC/100 WBC (Bld) [Ratio] 0.0 % [facility] Platelet mean volume (Bld) [Entitic vol] 9.2 fL 9.0 - 12.7 fL [facility] Platelets (Bld) [#/Vol] 289 10*3/uL 140 - 440 10*3/uL [facility] RBC (Bld) [#/Vol] 3.93 10*6/uL 3.80 - 5.2 0 10*6/uL [facility] WBC (Bld) [#/Vol] 9.8 10*3/uL 3.6 - 10.7 10*3/uL [facility] 25-hydroxyvitamin D3 [Mass/V ol]on 09-21-2023 Interpretation and review of laboratory results Normal [facility] Therapy is based on measurement of Total 25-OHD with the following classification levels: Less than 20 ng/mL: Indicative of Vit D deficiency 20-30 ng/mL: Suggests Vit D insufficiency Optimal: Greater than or equal to 30 ng/mL Test performed by [employer] Immunoassay, measuring Total Vitamin D, not individual fractions. [facility] Basic metabolic 1998 panelon 09-21-2023 Anion gap [Moles/Vol] 2 mmol/L Low 3 - 13 mmol/L [facility] Calcium [Mass/Vol] 9.1 mg/dL 8.4 - 10. 4 mg/dL [facility] Chloride [Moles/Vol] 102 mmol/L 98 - 10 7 mmol/L [facility] CO2 [Moles/Vol] 35 mmol/L High 22 - 30 mmol/L [facility] Creatinine [Mass/Vol] 0.49 mg/dL Low 0.52 - 1.04 mg/dL [facility] GFR/1.73 sq M.predicted MDRD (S/P/Bld) [Vol rate/Area] - PINF [facility] Comment on above: Calculation based on the Chronic Kidney Disease Epidemiology Collaboration (CKD-EPI) equation refit without adjustment for race Glucose [Mass/Vol] 97 mg/dL 70 - 100 mg/dL [facility] Potassium [Moles/Vol] 3.1 mmol/L Low 3.5 - 5.1 mmol/L [facility] Sodium [Moles/Vol] 139 mmol/L 135 - 145 mmol/L [facility] Urea nitrogen [Mass/Vol] 18 mg/dL High 7 - 17 mg/d L [facility] CBC W Auto Differential pane l (Bld)Ordered By: Crystal Dupont on 09-21-2023 Basophils (Bld) [#/Vol] 0.1 10*3/uL 0.0 - 0.2 10*3/uL [facility] Basophils/100 WBC (Bld) 0.5 % 0.0 - 2.0 % [facility] Eosinophils (Bld) [#/Vol] 0.8 10*3/uL High 0.0 - 0.5 10*3/uL [facility] Eosinophils/100 WBC (Bld) 8.2 % High 0.0 - 6.0 % [facility] Erythrocyte distribution width (RBC) [Ratio] 13.2 % 11.5 - 15.0 % [facility] Hematocrit (Bld) [Volume fraction] 33.9 % Low 35.0 - 47.0 % [facility] Hemoglobin (Bld) [Mass/Vol] 10.6 g/dL Low 11.7 - 16.0 g/dL [facility] Immature granulocytes (Bld) [#/Vol] 0.0 10*3/uL NINF - 0.1 10*3/uL [facility] Immature granulocytes/100 WBC (Bld) 0.2 % 0.0 - 2.0 % [facility] Interpretation and review of laboratory results Abnormal [facility] Lymphocytes (Bld) [#/Vol] 0.8 10*3/uL Low 1.0 - 4.3 10*3/uL [facility] Lymphocytes/100 WBC (Bld) 8.7 % Low 15.0 - 45.0 % [facility] MCH (RBC) [Entitic mass] 30.2 pg 26. 0 - 34.0 pg [facility] MCHC (RBC) [Mass/Vol] 31.3 % 30.5 - 36.0 % [facility] MCV (RBC) [Entitic vol] 96.6 fL 77.0 - 99.0 fL [facility] Monocytes (Bld) [#/Vol] 0.7 10*3/uL 0.0 - 0.9 10*3/uL [facility] Monocytes/100 WBC (Bld) 7.1 % 5.0 - 13.0 % [facility] Neutrophils (Bld) [#/Vol] 7.0 10*3/uL 1.8 - 7.5 10*3/uL [facility] Neutrophils/100 WBC (Bld) 75.3 % 38.0 - 82.0 % [facility] Nucleated RBC/100 WBC (Bld) [Ratio] 0.0 % [employer] Platelet mean volume (Bld) [Entitic vol] 9.5 fL 9.0 - 12.7 fL [employer] Platelets (Bld) [#/Vol] 217 10*3/uL 140 - 440 10*3/uL [employer] RBC (Bld) [#/Vol] 3.51 10*6/uL Low 3.80 - 5.2 0 10*6/uL [employer] WBC (Bld) [#/Vol] 9.4 10*3/uL 3.6 - 10.7 10*3/uL [employer] [facility] CNPNon 09-21-2023 CNPN Telephone (FAMDNA) GONZALO DELUCA ([id number]) 1955 F Date Time Provider Department 09/21/23 HERMINIA CASE FAMDNA During your visit today, we recorded the following information about you: Ana Maria Acosta, RN 09/21/2023 2:55 PM Signed Ashley from [facility] Patient currently admitted for falls Need orders to follow for Home Care Call back number: [phone] Melva Juárez PA-C 09/21/2023 4:01 PM Signed Orders or will Dr. Case follow? She will follow. We don't typically give home care orders. RODRÍGUEZ Kruse Kristina, CHARLEY 09/21/2023 4:54 PM Signed Called and spoke with Vivian from [place] They just need to confirm Dr. Case [...] by ANA MARIA ACOSTA on 09/21/23 Normal [facility] Cobalamin (Vitamin B12) [Mas s/Vol]on 09-21-2023 Interpretation and review of laboratory results Normal [facility] - Chemistry and C hemistry - challengeon 09-21-2023 Cobalamin (Vitamin B12) [Mass/Vol] 735 pg/mL 239 - 931 pg/mL [facility] TSH Qn 1.017 m[IU]/L [email or web address] 25-hydroxyvitamin D3 [Mass/Vol] 30 ng/mL 30 - 100 ng/mL [facility] Magnesium [Mass/Vol] 1.5 mg/dL Low 1.6 - 2 .3 mg/dL [facility] No Panel InformationOrdered By: Dave Cao on 09-21-2023 P [place] 46 degrees [employer] Work Phone: DE Interval 142 ms [employer] Work Phone: QRS [place] -35 degrees [employer] Work Phone: QRSD Interval 102 ms [employer] Work Phone: QT Interval 382 ms [employer] Work Phone: QTC Interval 446 ms [employer] [facility] Work Phone: T Wave [place] 147 degrees [employer] Work Phone: [employer] Work Phone: No Panel Informationon 09-20 Sinus [...] On 09-21-2023 09:19:23 EDT by Dave Cao [facility] Interpretation and review of laboratory results Abnormal [facility] TSH Qnon 09-21-2023 Interpretation and review of laboratory results Normal [facility] Vital signsOrdered By: Bernadette Cao on 09-21-2023 Heart rate 82 /min bpm [facility] Work Phone: Basic metabolic 1998 panelon 09-20-2023 Anion gap [Moles/Vol] 5 mmol/L 3 - 13 mmol/L [facility] Calcium [Mass/Vol] 8.5 mg/dL 8.4 - 10. 4 mg/dL [facility] Chloride [Moles/Vol] 99 mmol/L 98 - 10 7 mmol/L [facility] CO2 [Moles/Vol] 33 mmol/L High 22 - 30 mmol/L [facility] Creatinine [Mass/Vol] 0.73 mg/dL 0.52 - 1.04 mg/dL [facility] GFR/1.73 sq M.predicted MDRD (S/P/Bld) [Vol rate/Area] - PINF [facility] Comment on above: Calculation based on the Chronic Kidney Disease Epidemiology Collaboration (CKD-EPI) equation refit without adjustment for race Glucose [Mass/Vol] 94 mg/dL 70 - 100 mg/dL [facility] Interpretation and review of laboratory results Abnormal [facility] Potassium [Moles/Vol] 3.1 mmol/L Low 3.5 - 5.1 mmol/L [facility] Sodium [Moles/Vol] 137 mmol/L 135 - 145 mmol/L [facility] Urea nitrogen [Mass/Vol] 28 mg/dL High 7 - 17 mg/d L [facility] CBC W Auto Differential pane l (Bld)on 09-20-2023 Basophils (Bld) [#/Vol] 0.1 10*3/uL 0.0 - 0.2 10*3/uL [facility] Basophils/100 WBC (Bld) 0.5 % 0.0 - 2.0 % [facility] Eosinophils (Bld) [#/Vol] 0.8 10*3/uL High 0.0 - 0.5 10*3/uL [facility] Eosinophils/100 WBC (Bld) 7.0 % High 0.0 - 6.0 % [facility] Erythrocyte distribution width (RBC) [Ratio] 12.9 % 11.5 - 15.0 % [facility] Hematocrit (Bld) [Volume fraction] 34.8 % Low 35.0 - 47.0 % [facility] Hemoglobin (Bld) [Mass/Vol] 11.0 g/dL Low 11.7 - 16.0 g/dL [facility] Immature granulocytes (Bld) [#/Vol] 0.0 10*3/uL NINF - 0.1 10*3/uL [facility] Immature granulocytes/100 WBC (Bld) 0.4 % 0.0 - 2.0 % [facility] Interpretation and review of laboratory results Abnormal [facility] Lymphocytes (Bld) [#/Vol] 1.3 10*3/uL 1.0 - 4.3 10*3/uL [facility] Lymphocytes/100 WBC (Bld) 11.5 % Low 15.0 - 45.0 % [facility] MCH (RBC) [Entitic mass] 30.2 pg 26. 0 - 34.0 pg [facility] MCHC (RBC) [Mass/Vol] 31.6 % 30.5 - 36.0 % [facility] MCV (RBC) [Entitic vol] 95.6 fL 77.0 - 99.0 fL [facility] Monocytes (Bld) [#/Vol] 0.7 10*3/uL 0.0 - 0.9 10*3/uL [facility] Monocytes/100 WBC (Bld) 6.0 % 5.0 - 13.0 % [facility] Neutrophils (Bld) [#/Vol] 8.2 10*3/uL High 1.8 - 7.5 10*3/uL [facility] Neutrophils/100 WBC (Bld) 74.6 % 38.0 - 82.0 % [facility] Nucleated RBC/100 WBC (Bld) [Ratio] 0.0 % [facility] Platelet mean volume (Bld) [Entitic vol] 9.4 fL 9.0 - 12.7 fL [facility] Platelets (Bld) [#/Vol] 243 10*3/uL 140 - 440 10*3/uL [facility] [employer] RBC (Bld) [#/Vol] 3.64 10*6/uL Low 3.80 - 5.2 0 10*6/uL [facility] [employer] WBC (Bld) [#/Vol] 10.9 10*3/uL High 3.6 - 10.7 10*3/uL [facility] Laboratory - Chemistry and C hemistry - challengeon 09-20-2023 Magnesium [Mass/Vol] 2.3 mg/dL 1.6 - 2 .3 mg/dL [facility] Troponin I.cardiac [Mass/Vol] 0.022 ng/mL NINF - 0.034 ng/mL [facility] [employer] Magnesium [Mass/Vol] 2.7 mg/dL High 1.6 - 2 .3 mg/dL [facility] [employer] Magnesium [Mass/Vol]on 09-19 Interpretation and review of laboratory results Normal [facility] Interpretation and review of laboratory results Abnormal [facility] Troponin I.cardiac [Mass/Vol ]on 09-20-2023 Interpretation and review of laboratory results Normal [facility] Patients with high levels of Biotin oral intake (ie >5 mg/day) may have falsely decreased Troponin levels. [facility] [employer] [facility] [employer] US Heart TransthoracicOrdere d By: Srini Vital on 09-20-2023 Ao Root Index 2.56 cm/m2 [facility] [employer] Work Phone: Aortic Root 4.0 cm [facility] [employer] Work Phone: Aortic Sinus Valsalva 4.0 cm [facility] [employer] Work Phone: Aortic Sinus Valsalva Index 2.56 cm/m2 [facility] [employer] Work Phone: E/E' Lateral 4.67 [facility] [employer] Work Phone: E/E' Ratio (Averaged) 5.13 [facility] [employer] Work Phone: E/E' Septal 5.60 [facility] [employer] Phone: EF BP 65 % 55 - 100 % [facility] [employer] Work Phone: Fractional Shortening 2D 27 % 28 - 44 % [facility] [employer] Work Phone: [phone] Global Longitudinal Strain -18.1 % [facility] [employer] Work Phone: Interpretation and review of laboratory results Abnormal [facility] [employer] Work Phone: [phone] IVC Diameter 1.8 cm [facility] [employer] Work Phone: IVSd 1.0 cm Abnormal 0.6 - 0.9 cm [facility] [employer] Work Phone: [phone] LA Diameter 2.8 cm [facility] [employer] Work Phone: LA Size Index 1.79 cm/m2 [facility] Work Phone: LA Volume 2C 36 mL 22 - 52 mL [facility] [employer] Work Phone: LA Volume 4C 31 mL 22 - 52 mL [facility] [employer] Work Phone: LA Volume A/L 42 mL [facility] Work Phone: LA Volume BP 39 mL 22 - 52 mL [facility] [employer] Work Phone: LA Volume Index 2C 23 mL/m2 16 - 34 mL/m2 [facility] [employer] Work Phone: LA Volume Index 4C 20 mL/m2 16 - 34 mL/m2 [facility] [employer] Work Phone: [phone] LA Volume Index A/L 27 mL/m2 16 - 34 mL/m2 [facility] [employer] Work Phone: LA Volume Index BP 25 ml/m2 16 - 34 ml/m2 [facility] [employer] Work Phone: [phone] LA/AO Root Ratio 0.70 [facility] Work Phone: LV E' Lateral Velocity 12 cm/s [facility] Work Phone: LV E' Septal Velocity 10 cm/s [facility] Work Phone: LV EDV A2C 56 mL [facility] [employer] Work Phone: LV EDV A4C 60 mL [facility] [employer] Work Phone: LV EDV BP 60 mL 56 - 104 mL [facility] Work Phone: LV EDV Index A2C 36 mL/m2 [facility] Work Phone: LV EDV Index A4C 38 mL/m2 [facility] Work Phone: LV EDV Index BP 38 mL/m2 [facility] Work Phone: LV Ejection Fraction A2C 60 % [facility] Work Phone: LV Ejection Fraction A4C 70 % [facility] Work Phone: LV ESV A2C [address] [facility] Work Phone: LV ESV A4C [address] [facility] Work Phone: LV ESV BP 21 mL 19 - [address] [facility] Work Phone: LV ESV Index A2C 14 mL/m2 [facility] Work Phone: LV ESV Index A4C 12 mL/m2 [facility] Work Phone: LV ESV Index BP 13 mL/m2 [facility] [employer] Work Phone: LV Mass 2D 158.2 g 67 - 162 g [facility] Work Phone: LV Mass 2D Index 101.4 g/m2 Abnormal 43 - 95 g/m2 [facility] Work Phone: LV RWT Ratio 0.50 [facility] Work Phone: LVIDd 4.4 cm 3.9 - 5.[address] [facility] Work Phone: LVIDd Index 2.82 cm/m2 [facility] Work Phone: LVIDs 3.2 cm [facility] Work Phone: LVIDs Index 2.05 cm/m2 [facility] Work Phone: LVOT Area 4.2 cm2 [facility] Work Phone: LVOT Cardiac Output 6.5 liter/minute [facility] Work Phone: LVOT Diameter 2.3 cm [facility] Work Phone: LVOT Mean Gradient 2 mmHg [facility] Work Phone: LVOT Peak Gradient 3 mmHg [facility] Work Phone: [phone] LVOT Peak Velocity 0.9 m/s [facility] Work Phone: [phone] LVOT Stroke Volume Index 50.3 mL/m2 [facility] [employer] Work Phone: [phone] LVOT SV 78.5 ml [facility] Work Phone: [phone] LVOT VTI 18.9 cm [facility] Work Phone: [phone] LVPWd 1.1 cm Abnormal 0.6 - 0.9 cm [facility] Work Phone: [phone] MV A Velocity 0.55 m/s [facility] Work Phone: [phone] MV E Velocity 0.56 m[facility]s [facility] Work Phone: [phone] MV E Wave Deceleration Time 192.4 ms [facility] [employer] Work Phone: [phone] MV E/A 1.02 [facility] [employer] Work Phone: [phone] RA Area 4C 28.3 mL [facility] Work Phone: [phone] RV Basal Dimension 2.7 cm [facility] Work Phone: [phone] RV Free Wall Peak S' 15 cm/s [facility] Work Phone: [phone] RV Longitudinal Dimension 5.0 cm [facility] [employer] Work Phone: [phone] RV Mid Dimension 2.4 cm [facility] Work Phone: [phone] Sinotubular Junction 3.4 cm [facility] Work Phone: TAPSE 1.9 cm 1.7 cm [facility] Work Phone: [phone] TR Max Velocity 2.90 m/s [facility] Work Phone: TR Peak Gradient 34 mmHg [facility] Work Phone: [facility] Work Phone: [phone] US Heart Transthoracicon Left Ventricle: Left ventricle [...] [#/Vol] 0.0 10*3/uL 0.0 - 0.2 10*3/uL [facility] Basophils/100 WBC (Bld) 0.2 % 0.0 - 2.0 % [facility] Eosinophils (Bld) [#/Vol] 0.3 10*3/uL 0.0 - 0.5 10*3/uL [facility] Eosinophils/100 WBC (Bld) 1.5 % 0.0 - 6.0 % [facility] Erythrocyte distribution width (RBC) [Ratio] 13.0 % 11.5 - 15.0 % [facility] Hematocrit (Bld) [Volume fraction] 39.6 % 35.0 - 47.0 % [facility] Hemoglobin (Bld) [Mass/Vol] 12.7 g/dL 11.7 - 16.0 g/dL [facility] Immature granulocytes (Bld) [#/Vol] 0.1 10*3/uL High NINF - 0.1 10*3/uL [facility] Immature granulocytes/100 WBC (Bld) 0.6 % 0.0 - 2.0 % [facility] Interpretation and review of laboratory results Abnormal [facility] Lymphocytes (Bld) [#/Vol] 1.3 10*3/uL 1.0 - 4.3 10*3/uL [facility] Lymphocytes/100 WBC (Bld) 6.5 % Low 15.0 - 45.0 % [facility] MCH (RBC) [Entitic mass] 30.4 pg 26. 0 - 34.0 pg [facility] MCHC (RBC) [Mass/Vol] 32.1 % 30.5 - 36.0 % [facility] MCV (RBC) [Entitic vol] 94.7 fL 77.0 - 99.0 fL [facility] Monocytes (Bld) [#/Vol] 1.0 10*3/uL High 0.0 - 0.9 10*3/uL [facility] Monocytes/100 WBC (Bld) 5.1 % 5.0 - 13.0 % [facility] Neutrophils (Bld) [#/Vol] 16.8 10*3/uL High 1.8 - 7.5 10*3/uL [facility] Neutrophils/100 WBC (Bld) 86.1 % High 38.0 - 82.0 % [facility] Nucleated RBC/100 WBC (Bld) [Ratio] 0.0 % [facility] Platelet mean volume (Bld) [Entitic vol] 9.3 fL 9.0 - 12.7 fL [facility] Platelets (Bld) [#/Vol] 339 10*3/uL 140 - 440 10*3/uL [facility] RBC (Bld) [#/Vol] 4.18 10*6/uL 3.80 - 5.2 0 10*6/uL [facility] WBC (Bld) [#/Vol] 19.5 10*3/uL High 3.6 - 10.7 10*3/uL [facility] CT Cervical spine WO contras ton 09-19-2023 [...] Clark Duffy MD - 09/19/2023 Patient Name: OGNZALO DELUCA : 1955 Exam Date/Time: 09/19/2023 17:44 [...] Electronically Signed Date/Time: 09/19/2023 6:01 PM ED[address] [facility] CT Head WO contraston 2023 No intracranial traumatic injuries. Report Dictated on Electronically Signed By: Brando Tejada MD Electronically Signed Date/Time: 09/19/2023 5:55 PM EDT [facility] Patient Name: GONZALO DELUCA : [...] banding. Clear paranasal sinuses. No calvarial fractures. [facility] Brando Tejada M D - [...] Electronically Signed Date/Time: 09/19/2023 5:55 PM EDT [facility] [employer] CT Head WO contrastOrdered B y: Brando Tejada on 09-19-2023 [facility] [employer] Phone: CT Thoracic spine WO chucho thorne 09-19-2023 Patient Name: GONZALO DELUCA : 1955 [...] Electronically Signed Date/Time: 09/19/2023 6:01 PM EDT [facility] Radiology Study observation (narrative) [facility] Comprehensive metabolic 1998 panelOrdered By: Mara Hale on 09-19-2023 Albumin [Mass/Vol] 3.9 g/dL 3.5 - 5.0 g/dL [facility] ALP [Catalytic activity/Vol] 115 U/L 38 - 126 U/L [facility] ALT [Catalytic activity/Vol] 38 U/L High 0 - 34 U/L [facility] Anion gap [Moles/Vol] 13 mmol/L 3 - 13 mmol/L [facility] AST [Catalytic activity/Vol] 35 U/L 15 - 46 U/L [facility] Bilirubin [Mass/Vol] 0.5 mg/dL 0.2 - 1 .3 mg/dL [facility] Calcium [Mass/Vol] 9.0 mg/dL 8.4 - 10. 4 mg/dL [facility] Chloride [Moles/Vol] 93 mmol/L Low 98 - 10 7 mmol/L [facility] CO2 [Moles/Vol] 35 mmol/L High 22 - 30 mmol/L [facility] Creatinine [Mass/Vol] 1.33 mg/dL High 0.52 - 1.04 mg/dL [facility] GFR/1.73 sq M.predicted MDRD (S/P/Bld) [Vol rate/Area] 44.2 mL/min/{1.73_m2} Low - PINF [facility] Comment on above: Calculation based on the Chronic Kidney Disease Epidemiology Collaboration (CKD-EPI) equation refit without adjustment for race Glucose [Mass/Vol] 99 mg/dL 70 - 100 mg/dL [facility] Interpretation and review of laboratory results Abnormal [facility] Potassium [Moles/Vol] 2.3 mmol/L Critically low 3.5 - 5.1 mmol/L [facility] Protein [Mass/Vol] 7.1 g/dL 6.3 - 8.2 g/dL [facility] Sodium [Moles/Vol] 140 mmol/L 135 - 145 mmol/L [facility] Urea nitrogen [Mass/Vol] 36 mg/dL High 7 - 17 mg/d L [facility] Laboratory - Chemistry and C hemistry - challengeon 09-19-2023 Troponin I.cardiac [Mass/Vol] 0.031 ng/mL [facility] - 0.034 ng/mL [facility] Troponin I.cardiac [Mass/Vol] 0.025 ng/mL [facility] - 0.034 ng/mL [facility] Laboratory - Chemistry and C hemistry - challengeOrdered By: Rosa Elena Puente on 09-19-2023 Base excess Calc (BldV) [Moles/Vol] 4.1 mmol/L High -3.0 - 3.0 mmol/L [facility] CO2 (BldV) [Partial pressure] 49.6 mm[Hg] [facility] CO2 [Moles/Vol] 31.4 mmol/L High 23.0 - 30.0 mmol/L [facility] HCO3 (Bld) [Moles/Vol] 29.9 mmol/L 21.0 - 30.0 mmol/L [facility] Oxygen (BldV) [Partial pressure] 50.1 mm[Hg] mm Hg [facility] pH (BldV) 7.398 [pH] 7.320 - 7.420 [facility] Laboratory - Hematology and Cell countsOrdered By: Rosa Elena Puente on 09-19-2023 Hemoglobin (Bld) [Mass/Vol] 13.4 g/dL Screen only [facility] No Panel InformationOrdered By: Rosa Elena Puente on 09-19-2023 Interpretation and review of laboratory results Abnormal [facility] Source Of Oxygen Nasal cannula [facility] Assessment of oxygenation is best done with an arterial blood gas determination. Reference ranges for pO2, bicarbonate, and base excess are for mixed venous blood. Specimens drawn from a peripheral vein will often have higher values. [facility] No Panel Informationon 09-18 P [place] 25 degrees [facility] DE Interval 140 ms [facility] QRS [place] -48 degrees [facility] QRSD [facility]val [facility] Inter[facility] 468 ms [facility] QTC Interval 594 ms [facility] T Wave [place] 0 degrees [facility] Sinus rhythm Inferior infarct, old Prolonged QT interval No significant changes compared to previous Electronically Signed On 09-19-2023 18:04:00 EDT by Jono Robertson MD - 09/19/2023 IMPRESSION: Sinus rhythm Inferior infarct, old Prolonged QT interval No significant changes compared to previous Electronically Signed On 09-19-2023 18:04:00 EDT by Jono Weathers [facility] Impression: No acute osseous abnormality. Nonspecific [...] MD Electronically Signed Date/Time: 09/19/2023 6:01 PM [facility] Radiographic feature s suggestive of COPD. [...] MD Electronically Signed Date/Time: 09/19/2023 5:26 PM [facility] Radiology Study observation (narrative) [facility] No Panel InformationOrdered By: Clark Duffy on 09-19-2023 [facility] [employer] Work Phone: Troponin I.cardiac [Mass/Vol ]on 09-19-2023 Interpretation and review of laboratory results Normal [facility] Patients with high levels of Biotin oral intake (ie >5 mg/day) may have falsely decreased Troponin levels. [facility] Interpretation and review of laboratory results Normal [facility] Patients with high levels of Biotin oral intake (ie >5 mg/day) may have falsely decreased Troponin levels. [facility] Urinalysis complete panel (U )Ordered By: Chrissy Alexandra on 09-19-2023 Bacteria LM.HPF (Urine sed) [#/Area] Negative Negative /HPF [facility] Bilirubin Ql (U) Negative Negative mg/dL [facility] Clarity (U) Clear Clear [facility] Health Color (U) Yellow Lt. Yellow [facility] Epithelial cells.squamous LM.HPF (Urine sed) [#/Area] 0-2 [facility] Glucose Ql (U) Normal Normal (<70) mg/dL [facility] Hemoglobin Ql (U) Negative Negative mg/dL [facility] Hyaline casts Auto (Urine sed) [#/Area] 3-5 Abnormal Negative /LPF [facility] Interpretation and review of laboratory results Abnormal [facility] Ketones (U) [Mass/Vol] Negative Negat kenton mg/dL [facility] Leukocyte esterase Test strip Ql (U) Negative Negative Sandra/uL [facility] Mucus LM.HPF (Urine sed) [#/Area] Few Negative /LPF [facility] Nitrite Ql (U) Negative Negative [facility] th Non-Squamous Epithalial Cells, Urine 0-2 Abnormal Negative /HPF [facility] pH (U) 5.5 [pH] 5.0 - 8.0 pH [facility] Protein (U) [Mass/Vol] 20 mg/dL Abnormal Negative [facility] RBC LM.HPF (Urine sed) [#/Area] 0-2 [facility] Specific gravity (U) [Rel density] 1.018 1.005 - 1.030 [facility] Urobilinogen (U) [Mass/Vol] Normal Normal (0-1) mg/dL [facility] WBC LM.HPF (Urine sed) [#/Area] 3-5 [facility] Vital signsOrdered By: Rosa Elena Puente on 09-19-2023 Oxygen saturation in Venous blood 85.8 % [facility] Vital signson 09-19-2023 Heart rate 97 /min bpm [facility] XR Chest 2 Viewson Patient Name: [...] Electronically Signed Date/Time: 09/19/2023 5:26 PM EDT [facility] Radiology Study observation (narrative) Abe German [...] Electronically Signed Date/Time: 09/19/2023 5:26 PM EDT [facility] Radiology Study observation (narrative) Abe paz Leigh 09-08-2023 CNOV Office Visit (FAMDNA ) GONZALO DELUCA ([id number]) 1955 F Date Time Provider Department 09/08/23 [...] Mirtazapine (REMER (more content not included)... Normal [facility] Helen 09-06-2023 NADEEMN Telephone ([facility]LY [facility], [facility]1983) GONZALO DELUCA ([id number]) 1955 F Date Time Provider Department 09/06/23 HERMINIA CASE During your visit today, we recorded the following information about you: Lala Shelley 09/06/2023 12:30 PM Signed Gonzalo is calling Herminia Case MD today with concern regarding Electronic Communication (FAX from [facility] is going to be coming over that needs to be faxed back to them ) Patient has been identified by name and birthdate. Duration of symptoms: N/A Person calling: self daughter: Karishma Call patient at: at home [phone] (home) [phone] (cell) Was an appointment scheduled: No Closing statement: Results or non-symptom based questions: Thank you for calling [facility], your call will be returned within the next business day. Lala Whit Pugh LPN 09/07/2023 9:05 AM Signed LM for patient letting her know we have not received the form from [facility]. Whit Shay LPN Allergies As of Date: 09/06/2023 Noted Allergy Reaction SEASONAL ALLERGIES 08/16/2017 5 - Intolerance Date Reviewed: 05/02/2023 Reviewed by: Whit Shay LPN - Fully Assessed Reason for Visit: Electronic Communication [890] Cmt: FAX from [facility] is going to be coming over that [...] Status:Closed by WHIT SHAY on 09/07/23 Normal [facility] CBC W Auto Differential pane l (Bld)on 08-07-2023 Basophils (Bld) [#/Vol] 0.0 10*3/uL 0.0 - 0.2 10*3[facility]uL [facility] Basophils/100 WBC (Bld) 0.3 % 0.0 - 2.0 % [facility] Eosinophils (Bld) [#/Vol] 0.1 10*3/uL 0.0 - 0.5 10*3/uL [facility] Eosinophils/100 WBC (Bld) 0.8 % 0.0 - 6.0 % [facility] Erythrocyte distribution width (RBC) [Ratio] 12.6 % 11.5 - 15.0 % [facility] Hematocrit (Bld) [Volume fraction] 39.2 % 35.0 - 47.0 % [facility] Hemoglobin (Bld) [Mass/Vol] 12.6 g/dL 11.7 - 16.0 g/dL [facility] Immature granulocytes (Bld) [#/Vol] 0.1 10*3/uL High NINF - 0.1 10*3/uL [facility] Immature granulocytes/100 WBC (Bld) 0.5 % 0.0 - 2.0 % [facility] Interpretation and review of laboratory results Abnormal [facility] Lymphocytes (Bld) [#/Vol] 1.0 10*3/uL 1.0 - 4.3 10*3/uL [facility] Lymphocytes/100 WBC (Bld) 9.6 % Low 15.0 - 45.0 % [facility] MCH (RBC) [Entitic mass] 30.9 pg 26. 0 - 34.0 pg [facility] MCHC (RBC) [Mass/Vol] 32.1 % 30.5 - 36.0 % [facility] MCV (RBC) [Entitic vol] 96.1 fL 77.0 - 99.0 fL [facility] Monocytes (Bld) [#/Vol] 1.3 10*3/uL High 0.0 - 0.9 10*3/uL [facility] Monocytes/100 WBC (Bld) 12.9 % 5.0 - 13.0 % [facility] Neutrophils (Bld) [#/Vol] 7.8 10*3/uL High 1.8 - 7.5 10*3/uL [facility] Neutrophils/100 WBC (Bld) 75.9 % 38.0 - 82.0 % [facility] Nucleated RBC/100 WBC (Bld) [Ratio] 0.0 % [facility] Platelet mean volume (Bld) [Entitic vol] 9.8 fL 9.0 - 12.7 fL [facility] Platelets (Bld) [#/Vol] 351 10*3/uL 140 - 440 10*3/uL [facility] RBC (Bld) [#/Vol] 4.08 10*6/uL 3.80 - 5.2 0 10*6/uL [facility] WBC (Bld) [#/Vol] 10.3 10*3/uL 3.6 - 10.7 10*3/uL [facility] COVID-19, Flu A/B, and RSV C omboon 08-07-2023 Interpretation and review of laboratory results Normal [facility] Comprehensive metabolic 1998 panelon 08-07-2023 Albumin [Mass/Vol] 4.0 g/dL 3.5 - 5.0 g/dL [facility] ALP [Catalytic activity/Vol] 282 U/L High 38 - 126 U/L [facility] ALT [Catalytic activity/Vol] 47 U/L High 0 - 34 U/L [facility] Anion gap [Moles/Vol] 11 mmol/L 3 - 13 mmol/L [facility] AST [Catalytic activity/Vol] 62 U/L High 15 - 46 U/L [facility] Bilirubin [Mass/Vol] 1.1 mg/dL 0.2 - 1 .3 mg/dL [facility] Calcium [Mass/Vol] 9.2 mg/dL 8.4 - 10. 4 mg/dL [facility] Chloride [Moles/Vol] 96 mmol/L Low 98 - 10 7 mmol/L [facility] CO2 [Moles/Vol] 35 mmol/L High 22 - 30 mmol/L [facility] Creatinine [Mass/Vol] 0.57 mg/dL 0.52 - 1.04 mg/dL [facility] GFR/1.73 sq M.predicted MDRD (S/P/Bld) [Vol rate/Area] - PINF [facility] Comment on above: Calculation based on the Chronic Kidney Disease Epidemiology Collaboration (CKD-EPI) equation refit without adjustment for race Glucose [Mass/Vol] 119 mg/dL High 70 - 100 mg/dL [facility] Interpretation and review of laboratory results Abnormal [facility] Potassium [Moles/Vol] 3.1 mmol/L Low 3.5 - 5.1 mmol/L [facility] Protein [Mass/Vol] 7.9 g/dL 6.3 - 8.2 g/dL [facility] Sodium [Moles/Vol] 142 mmol/L 135 - 145 mmol/L [facility] Urea nitrogen [Mass/Vol] 10 mg/dL 7 - 17 mg/d L [facility] CHEMISTRY SPECIMEN MODERATELY HEMOLYZED; INTERPRET WITH CAUTION! [facility] Laboratory - Chemistry and C hemistry - challengeon 08-07-2023 Lactate [Moles/Vol] 2.0 mmol/L 0.7 - 2. 0 mmol/L [facility] Laboratory - Microbiology an d Antimicrobial susceptibilityon 08-07-2023 FLUAV RNA MILANA+probe Ql (Resp) Not detected Not Detected [facility] FLUBV RNA MILANA+probe Ql (Resp) Not detected Not Detected [facility] RSV RNA MILANA+probe Ql (Resp) Not detected Not Detected [facility] SARS-CoV-2 (COVID-19) RNA MILANA+probe Ql (Resp) Not detected Not Detected [facility] alth SARS-CoV-2 (COVID-19) RNA MILANA+probe Ql (Unsp spec) Methodology: real-time, RT-PCR The SARS-CoV-2, Flu A/B, and RSV Combo assay is intended for in vitro diagnostic use under the FDA Emergency Use Authorization (EUA). This test has not been FDA cleared or approved. In compliance with this authorization, please visit www.fda.gov/media/1428 35/download or www.fda.gov/media/1421 36/download to access the applicable information sheets. [facility] No Panel Informationon 08-06 Interpretation and review of laboratory results Normal [facility] P [place] 38 degrees [facility] DE Interval 137 ms [facility] QRS [place] -35 degrees [facility] QRSD Interval 95 ms [facility] QT Interval 246 ms [facility] QTC Interval 299 ms [facility] T Wave [place] 0 degrees [facility] Sinus rhythm Inferior infarct, old Electronically Signed On 08-07-2023 15:06:03 EDT by Lorenzo Jimenez MD - 08/07/2023 IMPRESSION: Sinus rhythm Inferior infarct, old Electronically Signed On 08-07-2023 15:06:03 EDT by Lorenzo Orozco [facility] Vital signson 08-07-2023 Heart rate 89 /min bpm [facility] XR Chest Single viewon 08-06 1. [...] was obtained and reviewed. Special views: None. [facility] Ramses Gamble MD - 08/07/2023 [...] Electronically Signed Date/Time: 08/07/2023 4:05 PM EDT [facility] Radiology Study observation (narrative) [facility] XR Chest Single viewOrdered By: Ramses Gamble on 08-07-2023 [facility] [employer] Work Phone: TOX SCREEN ROUT URon 024 Amphetamines Confirm (U) [Mass/Vol] Negative Negative [facility] Barbiturates Urine Negative Negative [facility] Benzodiazepines Urine Negative Negative [facility] Cannabinoids Screen Ql (U) Positive Abnormal Negative [facility] Cocaine Ql (U) Negative Negative [facility] Ethanol (U) [Mass/Vol] <11 mg/dL Cl [facility] Opiates Screen Ql (U) Negative Negative [facility] oxyCODONE cutoff Screen (U) [Mass/Vol] Positive Abnormal Negative [facility] Phencyclidine Ql (U) Negative Negative [facility] Basic metabolic 1998 panelon 02-18-2023 Anion gap [Moles/Vol] 5 mmol/L 3 - 13 mmol/L [facility] Calcium [Mass/Vol] 8.2 mg/dL Low 8.4 - 10. 4 mg/dL [facility] Chloride [Moles/Vol] 107 mmol/L 98 - 10 7 mmol/L [facility] CO2 [Moles/Vol] 28 mmol/L 22 - 30 mmol/L [facility] Creatinine [Mass/Vol] 0.55 mg/dL 0.52 - 1.04 mg/dL [facility] GFR/1.73 sq M.predicted MDRD (S/P/Bld) [Vol rate/Area] - PINF [facility] Comment on above: Calculation based on the Chronic Kidney Disease Epidemiology Collaboration (CKD-EPI) equation refit without adjustment for race Glucose [Mass/Vol] 113 mg/dL High 70 - 100 mg/dL [facility] Interpretation and review of laboratory results Abnormal [facility] Potassium [Moles/Vol] 3.8 mmol/L 3.5 - 5.1 mmol/L [facility] Sodium [Moles/Vol] 140 mmol/L 135 - 145 mmol/L [facility] Urea nitrogen [Mass/Vol] 14 mg/dL 7 - 17 mg/d L [facility] CBC W Auto Differential pane l (Bld)Ordered By: Yair Sanchez on 02-18-2023 Basophils (Bld) [#/Vol] 0.0 10*3/uL 0.0 - 0.2 10*3/uL [facility] Basophils/100 WBC (Bld) 0.7 % 0.0 - 2.0 % [facility] Eosinophils (Bld) [#/Vol] 0.4 10*3/uL 0.0 - 0.5 10*3/uL [facility] Eosinophils/100 WBC (Bld) 7.3 % High 1.0 - 6.0 % [facility] Erythrocyte distribution width (RBC) [Ratio] 14.0 % 11.5 - 14.5 % [facility] Hematocrit (Bld) [Volume fraction] 30.7 % Low 35.0 - 47.0 % [facility] Hemoglobin (Bld) [Mass/Vol] 10.0 g/dL Low 11.7 - 16.0 g/dL [facility] Interpretation and review of laboratory results Abnormal [facility] Lymphocytes (Bld) [#/Vol] 0.8 10*3/uL Low 1.0 - 4.3 10*3/uL [facility] Lymphocytes/100 WBC (Bld) 15.3 % Low 20.0 - 40.0 % [facility] MCH (RBC) [Entitic mass] 31.1 pg 26. 0 - 34.0 pg [facility] MCHC (RBC) [Mass/Vol] 32.7 % 32.0 - 36.0 % [facility] MCV (RBC) [Entitic vol] 95.1 fL 80.0 - 98.0 fL [facility] Monocytes (Bld) [#/Vol] 0.4 10*3/uL 0.0 - 0.8 10*3/uL [facility] Monocytes/100 WBC (Bld) 8.6 % 2.0 - 10.0 % [facility] Neutrophils (Bld) [#/Vol] 3.5 10*3/uL 1.8 - 7.0 10*3/uL [facility] Neutrophils/100 WBC (Bld) 68.1 % 40.0 - 80.0 % [facility] Nucleated RBC/100 WBC (Bld) [Ratio] 0.0 % [facility] Platelet mean volume (Bld) [Entitic vol] 7.3 fL Low 7.4 - 12.4 fL [facility] Platelets (Bld) [#/Vol] 178 10*3/uL 140 - 440 10*3/uL [facility] RBC (Bld) [#/Vol] 3.23 10*6/uL Low 3.8 - 5.20 10*6/uL [facility] WBC (Bld) [#/Vol] 5.1 10*3/uL 3.6 - 10.7 10*3/uL [facility] Laboratory - Microbiology an d Antimicrobial susceptibilityOrdered By: Savanna Cerrato on 02-18-2023 SARS-CoV-2 (COVID-19) Ag IA.rapid Ql (Resp) Negative Negative [facility] Comment on above: A negative result do es not rule out the possibility of SARS-CoV-2 infection. NAAT-based methods should be considered for symptomatic patients presenting greater than seven days after onset of symptoms. Method: Lateral flow immunoassay. Fact sheets for healthcare providers and patients can be found at the following sites: https://www.fda.gov/media/849780/download https://www.fda.gov/media/092638/download SARS-CoV-2 (COVID-19) Ag IA. rapid Ql (Resp)Ordered By: Savanna Cerrato on 02-18-2023 Interpretation and review of laboratory results Normal [facility] Basic metabolic 1998 panelon 02-17-2023 Anion gap [Moles/Vol] 7 mmol/L 3 - 13 mmol/L [facility] Calcium [Mass/Vol] 8.5 mg/dL 8.4 - 10. 4 mg/dL [facility] Chloride [Moles/Vol] 106 mmol/L 98 - 10 7 mmol/L [facility] CO2 [Moles/Vol] 28 mmol/L 22 - 30 mmol/L [facility] Creatinine [Mass/Vol] 0.49 mg/dL Low 0.52 - 1.04 mg/dL [facility] GFR/1.73 sq M.predicted MDRD (S/P/Bld) [Vol rate/Area] - PINF [facility] Comment on above: Calculation based on the Chronic Kidney Disease Epidemiology Collaboration (CKD-EPI) equation refit without adjustment for race Glucose [Mass/Vol] 115 mg/dL High 70 - 100 mg/dL [facility] Interpretation and review of laboratory results Abnormal [facility] Potassium [Moles/Vol] 3.7 mmol/L 3.5 - 5.1 mmol/L [facility] Sodium [Moles/Vol] 141 mmol/L 135 - 145 mmol/L [facility] Urea nitrogen [Mass/Vol] 14 mg/dL 7 - 17 mg/d L [facility] NM Bone Limited Viewson 01-21 Moderately intense [...] MD Electronically Signed Date/Time: 02/17/2023 4:36 PM [facility] 1955 [id number] Exam Date/Time: 02/17/2023 10:41 Procedure: NM BONE [...] the lumbar spine. [facility] Dave Farmer MD - 02/17/2023 Patient Name: GONZALO DELUCA : 1955 Exam [...] Electronically Signed Date/Time: 02/17/2023 4:36 PM EST [facility] Radiology Study observation (narrative) [facility] al[facility] NM Bone Limited ViewsOrdered By: Dave Farmer on 02-17-2023 [facility] Basic metabolic 1998 panelon 02-16-2023 Anion gap [Moles/Vol] 2 mmol/L Low 3 - 13 mmol/L [facility] Calcium [Mass/Vol] 8.3 mg/dL Low 8.4 - 10. 4 mg/dL [facility] Chloride [Moles/Vol] 105 mmol/L 98 - 10 7 mmol/L [facility] CO2 [Moles/Vol] 32 mmol/L High 22 - 30 mmol/L [facility] Creatinine [Mass/Vol] 0.58 mg/dL 0.52 - 1.04 mg/dL [facility] GFR/1.73 sq M.predicted MDRD (S/P/Bld) [Vol rate/Area] - PINF [facility] Comment on above: Calculation based on the Chronic Kidney Disease Epidemiology Collaboration (CKD-EPI) equation refit without adjustment for race Glucose [Mass/Vol] 117 mg/dL High 70 - 100 mg/dL [facility] Interpretation and review of laboratory results Abnormal [facility] Potassium [Moles/Vol] 3.3 mmol/L Low 3.5 - 5.1 mmol/L [facility] Sodium [Moles/Vol] 139 mmol/L 135 - 145 mmol/L [facility] Urea nitrogen [Mass/Vol] 16 mg/dL 7 - 17 mg/d L [facility] Laboratory - Chemistry and C hemistry - challengeon 02-16-2023 Magnesium [Mass/Vol] 1.9 mg/dL 1.6 - 2 .3 mg/dL [facility] Magnesium [Mass/Vol]on 02-16 Interpretation and review of laboratory results Normal [facility] Basic metabolic 1997 panelon 02-15-2023 Anion gap [Moles/Vol] 6 mmol/L 3 - 13 mmol/L [facility] Calcium [Mass/Vol] 8.4 mg/dL 8.4 - 10. 4 mg/dL [facility] Chloride [Moles/Vol] 104 mmol/L 98 - 10 7 mmol/L [facility] CO2 [Moles/Vol] 28 mmol/L 22 - 30 mmol/L [facility] Creatinine [Mass/Vol] 0.52 mg/dL 0.52 - 1.04 mg/dL [facility] GFR/1.73 sq M.predicted MDRD (S/P/Bld) [Vol rate/Area] - PINF [facility] Comment on above: Calculation based on the Chronic Kidney Disease Epidemiology Collaboration (CKD-EPI) equation refit without adjustment for race Glucose [Mass/Vol] 91 mg/dL 70 - 100 mg/dL [facility] Interpretation and review of laboratory results Abnormal [facility] Potassium [Moles/Vol] 3.2 mmol/L Low 3.5 - 5.1 mmol/L [facility] Sodium [Moles/Vol] 138 mmol/L 135 - 145 mmol/L [facility] Urea nitrogen [Mass/Vol] 15 mg/dL 7 - 17 mg/d L [facility] CBC panel Auto (Bld)Ordered By: Rosa Ruiz on 02-15-2023 Erythrocyte distribution width (RBC) [Ratio] 13.8 % 11.5 - 14.5 % [facility] Hematocrit (Bld) [Volume fraction] 31.2 % Low 35.0 - 47.0 % [facility] Hemoglobin (Bld) [Mass/Vol] 10.6 g/dL Low 11.7 - 16.0 g/dL [facility] Interpretation and review of laboratory results Abnormal [facility] MCH (RBC) [Entitic mass] 31.5 pg 26. 0 - 34.0 pg [facility] MCHC (RBC) [Mass/Vol] 33.9 % 32.0 - 36.0 % [facility] MCV (RBC) [Entitic vol] 92.9 fL 80.0 - 98.0 fL [facility] Platelet mean volume (Bld) [Entitic vol] 7.7 fL 7.4 - 12.4 fL [facility] Platelets (Bld) [#/Vol] 163 10*3/uL 140 - 440 10*3/uL [facility] RBC (Bld) [#/Vol] 3.36 10*6/uL Low 3.8 - 5.20 10*6/uL [facility] WBC (Bld) [#/Vol] 5.2 10*3/uL 3.6 - 10.7 10*3/uL [facility] Laboratory - Chemistry and C hemistry - challengeon 02-15-2023 Magnesium [Mass/Vol] 1.9 mg/dL 1.6 - 2 .3 mg/dL [facility] Magnesium [Mass/Vol]on 02-15 Interpretation and review of laboratory results Normal [facility] 25-hydroxyvitamin D3 [Mass/V ol]on 02-14-2023 Interpretation and review of laboratory results Normal [facility] Therapy is based on measurement of Total 25-OHD with the following classification levels: Less than 20 ng/mL: Indicative of Vit D deficiency 20-30 ng/mL: Suggests Vit D insufficiency Optimal: Greater than or equal to 30 ng/mL Test performed by [employer] Immunoassay, measuring Total Vitamin D, not individual fractions. [facility] Laboratory - Chemistry and C hemistry - challengeon 02-14-2023 25-hydroxyvitamin D3 [Mass/Vol] 37 ng/mL 30 - 100 ng/mL [facility] Basic metabolic 1998 panelon 02-13-2023 Anion gap [Moles/Vol] 7 mmol/L 3 - 13 mmol/L [facility] Calcium [Mass/Vol] 9.1 mg/dL 8.4 - 10. 4 mg/dL [facility] Chloride [Moles/Vol] 98 mmol/L 98 - 10 7 mmol/L [facility] CO2 [Moles/Vol] 32 mmol/L High 22 - 30 mmol/L [facility] Creatinine [Mass/Vol] 0.50 mg/dL Low 0.52 - 1.04 mg/dL [facility] GFR/1.73 sq M.predicted MDRD (S/P/Bld) [Vol rate/Area] - PINF [facility] Comment on above: Calculation based on the Chronic Kidney Disease Epidemiology Collaboration (CKD-EPI) equation refit without adjustment for race Glucose [Mass/Vol] 96 mg/dL 70 - 100 mg/dL [facility] Interpretation and review of laboratory results Abnormal [facility] Potassium [Moles/Vol] 3.7 mmol/L 3.5 - 5.1 mmol/L [facility] Sodium [Moles/Vol] 137 mmol/L 135 - 145 mmol/L [facility] Urea nitrogen [Mass/Vol] 13 mg/dL 7 - 17 mg/d L [facility] CBC W Auto Differential pane l (Bld)Ordered By: Kina Valverde on 02-13-2023 Basophils (Bld) [#/Vol] 0.0 10*3/uL 0.0 - 0.2 10*3/uL [facility] Basophils/100 WBC (Bld) 0.3 % 0.0 - 2.0 % [facility] Eosinophils (Bld) [#/Vol] 0.1 10*3/uL 0.0 - 0.5 10*3/uL [facility] Eosinophils/100 WBC (Bld) 0.9 % Low 1.0 - 6.0 % [facility] Erythrocyte distribution width (RBC) [Ratio] 13.8 % 11.5 - 14.5 % [facility] Hematocrit (Bld) [Volume fraction] 36.2 % 35.0 - 47.0 % [facility] Hemoglobin (Bld) [Mass/Vol] 11.9 g/dL 11.7 - 16.0 g/dL [facility] Interpretation and review of laboratory results Abnormal [facility] Lymphocytes (Bld) [#/Vol] 0.7 10*3/uL Low 1.0 - 4.3 10*3/uL [facility] Lymphocytes/100 WBC (Bld) 6.4 % Low 20.0 - 40.0 % [facility] MCH (RBC) [Entitic mass] 30.7 pg 26. 0 - 34.0 pg [facility] MCHC (RBC) [Mass/Vol] 32.7 % 32.0 - 36.0 % [facility] MCV (RBC) [Entitic vol] 93.9 fL 80.0 - 98.0 fL [facility] Monocytes (Bld) [#/Vol] 0.4 10*3/uL 0.0 - 0.8 10*3/uL [facility] Monocytes/100 WBC (Bld) 3.7 % 2.0 - 10.0 % [facility] Neutrophils (Bld) [#/Vol] 9.9 10*3/uL High 1.8 - 7.0 10*3/uL [facility] Neutrophils/100 WBC (Bld) 88.7 % High 40.0 - 80.0 % [facility] Nucleated RBC/100 WBC (Bld) [Ratio] 0.0 % [facility] Platelet mean volume (Bld) [Entitic vol] 7.3 fL Low 7.4 - 12.4 fL [facility] Platelets (Bld) [#/Vol] 212 10*3/uL 140 - 440 10*3/uL [facility] RBC (Bld) [#/Vol] 3.86 10*6/uL 3.8 - 5.20 10*6/uL [facility] [employer] WBC (Bld) [#/Vol] 11.1 10*3/uL High 3.6 - 10.7 10*3/uL [facility] XR Lumbar spine 2 or 3 Views on 02-13-2023 1. Multilevel, possible insufficiency compressive changes in the L2-L4 levels, mild and new in the L2 and L4 levels and moderate in the L3 level, similar to comparison. No other, acute osseous abnormality. 2. Degenerative change. Report Dictated on Electronically Signed By: Gianni Avila MD Electronically Signed Date/Time: 02/13/2023 8:25 PM EST [facility] Patient Name: GONZALO DELUCA : 1955 [...] Paraspinal soft tissues grossly unremarkable. [facility] Gianni Avila MD - 02/13/2023 Patient [...] MD Electronically Signed Date/Time: 02/13/2023 8:25 PM [facility] Study observation (narrative) [facility] XR Shoulder - left 2 Viewson 02-13-2023 1. No acute osseous abnormality. 2. Remote posttraumatic and mild degenerative change. Report Dictated on Electronically Signed By: Gianni Avila MD Electronically Signed Date/Time: 02/13/2023 8:17 PM [facility]ONZAL[facility] 1955 [id number] Exam Date/Time: 02/13/2023 20:13 Procedure: XR SHOULDER [...] tissues grossly unremarkable. Left-sided portacatheter again noted. [facility] Gianni Avila MD - 02/13/2023 Patient Name: GONZALO DELUCA : 1955 [id number] Exam Date/Time: 02/13/2023 20:13 Procedure: XR SHOULDER [...] Electronically Signed Date/Time: 02/13/2023 8:17 PM EST [facility] Radiology Study observation (narrative) [facility] XR Shoulder - left 2 ViewsOr dered By: Gianni Avila on 02-13-2023 [facility] [employer] Work Phone: Basic metabolic 1998 panelon 11-08-2022 Anion gap [Moles/Vol] 3 mmol/L 3 - 13 mmol/L [facility] Calcium [Mass/Vol] 8.1 mg/dL Low 8.4 - 10. 4 mg/dL [facility] Chloride [Moles/Vol] 105 mmol/L 98 - 10 7 mmol/L [facility] CO2 [Moles/Vol] 27 mmol/L 22 - 30 mmol/L [facility] Creatinine [Mass/Vol] 0.65 mg/dL 0.52 - 1.04 mg/dL [facility] GFR/1.73 sq M.predicted MDRD (S/P/Bld) [Vol rate/Area] - PINF [facility] Comment on above: Calculation based on the Chronic Kidney Disease Epidemiology Collaboration (CKD-EPI) equation refit without adjustment for race Glucose [Mass/Vol] 142 mg/dL High 70 - 100 mg/dL [facility] Interpretation and review of laboratory results Abnormal [facility] Potassium [Moles/Vol] 4.1 mmol/L 3.5 - 5.1 mmol/L [facility] Sodium [Moles/Vol] 136 mmol/L 135 - 145 mmol/L [facility] Urea nitrogen [Mass/Vol] 19 mg/dL High 7 - 17 mg/d L [facility] CBC W Auto Differential pane l (Bld)Ordered By: Rolando Shelton on 11-08-2022 Basophils (Bld) [#/Vol] 0.1 10*3/uL 0.0 - 0.2 10*3/uL [facility] Basophils/100 WBC (Bld) 0.7 % 0.0 - 2.0 % [facility] Eosinophils (Bld) [#/Vol] 0.0 10*3/uL 0.0 - 0.5 10*3/uL [facility] Eosinophils/100 WBC (Bld) 0.0 % Low 1.0 - 6.0 % [facility] Erythrocyte distribution width (RBC) [Ratio] 14.7 % High 11.5 - 14.5 % [facility] Hematocrit (Bld) [Volume fraction] 29.9 % Low 35.0 - 47.0 % [facility] Hemoglobin (Bld) [Mass/Vol] 10.3 g/dL Low 11.7 - 16.0 g/dL [facility] Interpretation and review of laboratory results Abnormal [facility] Lymphocytes (Bld) [#/Vol] 0.5 10*3/uL Low 1.0 - 4.3 10*3/uL [facility] Lymphocytes/100 WBC (Bld) 5.5 % Low 20.0 - 40.0 % [facility] MCH (RBC) [Entitic mass] 32.0 pg 26. 0 - 34.0 pg [facility] MCHC (RBC) [Mass/Vol] 34.5 % 32.0 - 36.0 % [facility] MCV (RBC) [Entitic vol] 92.8 fL 80.0 - 98.0 fL [facility] Monocytes (Bld) [#/Vol] 0.6 10*3/uL 0.0 - 0.8 10*3/uL [facility] Monocytes/100 WBC (Bld) 6.8 % 2.0 - 10.0 % [facility] Neutrophils (Bld) [#/Vol] 7.9 10*3/uL High 1.8 - 7.0 10*3/uL [facility] Neutrophils/100 WBC (Bld) 87.0 % High 40.0 - 80.0 % [facility] Nucleated RBC/100 WBC (Bld) [Ratio] 0.0 % [facility] Platelet mean volume (Bld) [Entitic vol] 7.6 fL 7.4 - 12.4 fL [facility] Platelets (Bld) [#/Vol] 182 10*3/uL 140 - 440 10*3/uL [facility] RBC (Bld) [#/Vol] 3.23 10*6/uL Low 3.8 - 5.20 10*6/uL [facility] WBC (Bld) [#/Vol] 9.1 10*3/uL 3.6 - 10.7 10*3/uL [facility] Basic metabolic 1998 panelon 11-07-2022 Anion gap [Moles/Vol] 0 mmol/L Low 3 - 13 mmol/L [facility] Calcium [Mass/Vol] 8.3 mg/dL Low 8.4 - 10. 4 mg/dL [facility] Chloride [Moles/Vol] 106 mmol/L 98 - 10 7 mmol/L [facility] CO2 [Moles/Vol] 29 mmol/L 22 - 30 mmol/L [facility] Creatinine [Mass/Vol] 0.71 mg/dL 0.52 - 1.04 mg/dL [facility] GFR/1.73 sq M.predicted MDRD (S/P/Bld) [Vol rate/Area] - PINF [facility] Comment on above: Calculation based on the Chronic Kidney Disease Epidemiology Collaboration (CKD-EPI) equation refit without adjustment for race Glucose [Mass/Vol] 96 mg/dL 70 - 100 mg/dL [facility] Interpretation and review of laboratory results Abnormal [facility] Potassium [Moles/Vol] 3.8 mmol/L 3.5 - 5.1 mmol/L [facility] Sodium [Moles/Vol] 135 mmol/L 135 - 145 mmol/L [facility] Urea nitrogen [Mass/Vol] 14 mg/dL 7 - 17 mg/d L [facility] Slightly Hemolyzed [facility] CBC W Auto Differential pane l (Bld)Ordered By: Hakeem Cruz on 11-07-2022 Basophils (Bld) [#/Vol] 0.0 10*3/uL 0.0 - 0.2 10*3/uL [facility] Basophils/100 WBC (Bld) 0.4 % 0.0 - 2.0 % [facility] Eosinophils (Bld) [#/Vol] 0.5 10*3/uL 0.0 - 0.5 10*3/uL [facility] Eosinophils/100 WBC (Bld) 7.5 % High 1.0 - 6.0 % [facility] Erythrocyte distribution width (RBC) [Ratio] 14.8 % High 11.5 - 14.5 % [facility] Hematocrit (Bld) [Volume fraction] 33.8 % Low 35.0 - 47.0 % [facility] Hemoglobin (Bld) [Mass/Vol] 11.2 g/dL Low 11.7 - 16.0 g/dL [facility] Interpretation and review of laboratory results Abnormal [facility] Lymphocytes (Bld) [#/Vol] 0.7 10*3/uL Low 1.0 - 4.3 10*3/uL [facility] Lymphocytes/100 WBC (Bld) 12.2 % Low 20.0 - 40.0 % [facility] MCH (RBC) [Entitic mass] 31.0 pg 26. 0 - 34.[address] [facility] MCHC (RBC) [Mass/Vol] 33.3 % 32.0 - 36.0 % [facility] MCV (RBC) [Entitic vol] 93.0 fL 80.0 - 98.0 fL [facility] Monocytes (Bld) [#/Vol] 0.5 10*3/uL 0.0 - 0.8 10*3/uL [facility] Monocytes/100 WBC (Bld) 7.5 % 2.0 - 10.0 % [facility] Neutrophils (Bld) [#/Vol] 4.4 10*3/uL 1.8 - 7.0 10*3/uL [facility] Neutrophils/100 WBC (Bld) 72.4 % 40.0 - 80.0 % [facility] Nucleated RBC/100 WBC (Bld) [Ratio] 0.0 % [facility] Platelet mean volume (Bld) [Entitic vol] 7.0 fL Low 7.4 - 12.4 fL [facility] Platelets (Bld) [#/Vol] 213 10*3/uL 140 - 440 10*3/uL [facility] RBC (Bld) [#/Vol] 3.63 10*6/uL Low 3.8 - 5.20 10*6/uL [facility] WBC (Bld) [#/Vol] 6.0 10*3/uL 3.6 - 10.7 10*3/uL [facility] No Panel Informationon 11-07 There is no interpretation needed for this exam. IMAGING Sinus rhythm Inferior infarct, old Electronically Signed On 11-07-2022 1:11:05 EDT by Melva Hull CV Melva Albrecht, - 11/07/2022 IMPRESSION: Sinus rhythm Inferior infarct, old Electronically Signed On 11-07-2022 1:11:05 EDT by Melva Hull [facility] No Panel InformationOrdered By: Melva Hull on 11-07-2022 P [place] 69 degrees [facility] Work Phone: DE Interval 152 ms [facility] Work Phone: QRS [place] -35 degrees [facility] Work Phone: QRSD Interval 98 [facility] Work Phone: QT Interval 395 ms [facility] Work Phone: QTC Interval 473 ms [facility] Work Phone: T Wave [place] -12 degrees [facility] Work Phone: [facility] Work Phone: Urinalysis complete panel (U )on 11-07-2022 Bilirubin Ql (U) Negative Negative mg/dL [facility] [employer] Clarity (U) Clear Clear [facility] Color (U) Yellow Lt. Yellow [facility] Glucose Ql (U) Normal Normal (<70) mg/dL [facility] Hemoglobin Ql (U) Negative Negative mg/dL [facility] Interpretation and review of laboratory results Normal [facility] Ketones (U) [Mass/Vol] Negative Negat kenton mg/dL [facility] Leukocyte esterase Test strip Ql (U) Negative Negative Sandra/uL [facility] Nitrite Ql (U) Negative Negative [facility] th pH (U) 6.5 [pH] 5.0 - 8.0 pH [facility] Protein (U) [Mass/Vol] Negative Negat kenton mg/dL [facility] Specific gravity (U) [Rel density] 1.025 1.005 - 1.030 [facility] Urobilinogen (U) [Mass/Vol] Normal Normal (0-1) mg/dL [facility] Vital signsOrdered By: Celio Hull on 11-07-2022 Heart rate 121 /min bpm [facility] Work Phone: Basic metabolic 1998 panelon 11-06-2022 Anion gap [Moles/Vol] 2 mmol/L Low 3 - 13 mmol/L [facility] Calcium [Mass/Vol] 8.4 mg/dL 8.4 - 10. 4 mg/dL [facility] Chloride [Moles/Vol] 105 mmol/L 98 - 10 7 mmol/L [facility] CO2 [Moles/Vol] 30 mmol/L 22 - 30 mmol/L [facility] Creatinine [Mass/Vol] 0.66 mg/dL 0.52 - 1.04 mg/dL [facility] GFR/1.73 sq M.predicted MDRD (S/P/Bld) [Vol rate/Area] - PINF [facility] Comment on above: Calculation based on the Chronic Kidney Disease Epidemiology Collaboration (CKD-EPI) equation refit without adjustment for race Glucose [Mass/Vol] 99 mg/dL 70 - 100 mg/dL [facility] Interpretation and review of laboratory results Abnormal [facility] Potassium [Moles/Vol] 3.5 mmol/L 3.5 - 5.1 mmol/L [facility] Sodium [Moles/Vol] 137 mmol/L 135 - 145 mmol/L [facility] Urea nitrogen [Mass/Vol] 12 mg/dL 7 - 17 mg/d L [facility] CBC panel Auto (Bld)Ordered By: Desiree Ho on 11-06-2022 Erythrocyte distribution width (RBC) [Ratio] 14.9 % High 11.5 - 14.5 % [facility] Hematocrit (Bld) [Volume fraction] 36.4 % 35.0 - 47.0 % [facility] Hemoglobin (Bld) [Mass/Vol] 12.1 g/dL 11.7 - 16.0 g/dL [facility] Interpretation and review of laboratory results Abnormal [facility] MCH (RBC) [Entitic mass] 31.0 pg 26. 0 - 34.0 pg [facility] MCHC (RBC) [Mass/Vol] 33.3 % 32.0 - 36.0 % [facility] MCV (RBC) [Entitic vol] 93.2 fL 80.0 - 98.0 fL [facility] Platelet mean volume (Bld) [Entitic vol] 7.2 fL Low 7.4 - 12.4 fL [facility] Platelets (Bld) [#/Vol] 238 10*3/uL 140 - 440 10*3/uL [facility] RBC (Bld) [#/Vol] 3.91 10*6/uL 3.8 - 5.20 10*6/uL [facility] WBC (Bld) [#/Vol] 10.3 10*3/uL 3.6 - 10.7 10*3/uL [facility] No Panel Informationon 11-06 Radiology Study observation (narrative) [facility] XR Hand - right 3 View[place] No fracture or acute osseous injury. Report Dictated on Electronically Signed By: Ankit Tripathi MD Electronically Signed Date/Time: 11/06/2022 2:14 PM EDT [facility] Patient Name: GONZALO DELUCA : 1955 [...] Otherwise no significant productive or erosive arthropathy. [facility] Ankit Tripathi MD - 11/06/2022 [...] Electronically Signed Date/Time: 11/06/2022 2:14 PM EDT [employer] XR Hip - left 3 Viewson 10-19 Impression: Intertrochanteric left hip fracture, with foreshortening of the fracture fragments. Report Dictated on Electronically Signed By: Ankit Tripathi MD Electronically Signed Date/Time: 11/06/2022 2:28 PM EDT [facility] Patient Name: GONZALO DELUCA : 1955 [...] of erosion or widening. Normal osseous mineralization. [facility] Ankit Tripathi MD - 11/06/2022 [...] Electronically Signed Date/Time: 11/06/2022 2:28 PM EDT [facility] XR Ribs - left 2 View[place] 1. No acute cardiopulmonary disease. 2. Pulmonary hyperinflation. 3. Normal ribs. Report Dictated on Electronically Signed By: Ankit Tripathi MD Electronically Signed Date/Time: 11/06/2022 2:26 PM EDT [facility] Patient Name: GONZALO DELUCA : 1955 Exam Date/Time: 11/06/2022 14:18 Procedure: XR RIBS 2 VIEWS LEFT Ordering Provider: MCCANN JOSEPH Reason For Exam: Rib pain, fx suspected RIGHT RIBS AND CHEST CLINICAL INDICATION: Pain. TECHNIQUE: Three views were obtained COMPARISON: Correlation with chest radiograph May 21, 2022. FINDINGS: Stable appearance/location of the left-sided chest [id number] line. The cardiac and mediastinal silhouettes are unremarkable. The hyperinflated lungs demonstrate no consolidation or area of atelectasis. The costophrenic angles are sharp. No pneumothorax is noted. The ribs demonstrate no evidence for fracture or bone lesion. [facility] Ankit Tripathi MD - 11/06/2022 Patient Name: GONZALO DELUCA : 1955 [facility]#: [id number] Exam Date/Time: 11/06/2022 14:18 Procedure: XR RIBS 2 VIEWS LEFT Ordering Provider: MCCANN JOSEPH Reason For Exam: Rib pain, fx suspected RIGHT RIBS AND CHEST CLINICAL INDICATION: Pain. TECHNIQUE: Three views were obtained COMPARISON: Correlation with chest radiograph May 21, 2022. FINDINGS: Stable appearance/location of the left-sided chest [id number] line. The cardiac and mediastinal silhouettes are [...] Electronically Signed Date/Time: 11/06/2022 2:26 PM EDT [facility] Radiology Study observation (narrative) [facility] XR Ribs - left 2 ViewsOrdere d By: Ankit Tripathi on 11-06-2022 [facility] Work Phone: CBC W Auto Differential pane l (Bld)on 09-15-2022 Basophils (Bld) [#/Vol] 0.05 10*3/uL <0.11 k/uL [facility] Basophils/100 WBC (Bld) 0.5 % C [facility] Differential cell count method Nom (Bld) Auto [facility] Eosinophils (Bld) [#/Vol] 0.49 10*3/uL High <0.46 k/uL [facility] Eosinophils/100 WBC (Bld) 5.0 % [facility] Erythrocyte distribution width (RBC) [Ratio] 14.9 % 11.5 - 15.0 % [facility] Hematocrit (Bld) [Volume fraction] 39.3 % 36.0 - 46.0 % [facility] Hemoglobin (Bld) [Mass/Vol] 12.1 g/dL 11.5 - 15.5 g/dL [facility] Immature granulocytes (Bld) [#/Vol] 0.04 10*3/uL <0.10 k/uL [facility] Immature granulocytes/100 WBC (Bld) 0.4 % [facility] Lymphocytes (Bld) [#/Vol] 0.94 10*3/uL Low 1.00 - 4.00 k/uL [facility] Lymphocytes/100 WBC (Bld) 9.7 % [facility] MCH (RBC) [Entitic mass] 30.2 pg 26. 0 - 34.0 pg [facility] MCHC (RBC) [Mass/Vol] 30.8 g/dL 30.5 - 36.0 g/dL [facility] MCV (RBC) [Entitic vol] 98.0 fL 80.0 - 100.0 fL [facility] Monocytes (Bld) [#/Vol] 0.73 10*3/uL <0.87 k/uL [facility] Monocytes/100 WBC (Bld) 7.5 % [facility] Neutrophils (Bld) [#/Vol] 7.47 10*3/uL 1.45 - 7.50 k/uL [facility] Neutrophils/100 WBC (Bld) 76.9 % [facility] Nucleated RBC (Bld) [#/Vol] <0.01 k/uL [facility] Nucleated RBC/100 WBC (Bld) [Ratio] 0.0 /100 WBC [facility] Platelet mean volume (Bld) [Entitic vol] 9.3 fL 9.0 - 12.7 fL [facility] Platelets (Bld) [#/Vol] 349 10*3/uL 150 - 400 k/uL [facility] RBC (Bld) [#/Vol] 4.01 10*6/uL 3.90 - 5.2 0 m/uL [facility] WBC (Bld) [#/Vol] 9.72 10*3/uL 3.70 - 11. 00 k/uL [facility] Comprehensive metabolic 2000 panelon 09-15-2022 Albumin [Mass/Vol] 4.0 g/dL 3.9 - 4.9 g/dL [facility] ALP [Catalytic activity/Vol] 148 U/L High 34 - 123 U/L [facility] ALT [Catalytic activity/Vol] 12 U/L 7 - 38 U/L [facility] Anion gap [Moles/Vol] 11 mmol/L 9 - 18 mmol/L [facility] AST [Catalytic activity/Vol] 17 U/L 13 - 35 U/L [facility] Bilirubin [Mass/Vol] 0.4 mg/dL 0.2 - 1 .3 mg/dL [facility] Calcium [Mass/Vol] 9.8 mg/dL 8.5 - 10. 2 mg/dL [facility] Chloride [Moles/Vol] 103 mmol/L 97 - 10 5 mmol/L [facility] CO2 [Moles/Vol] 28 mmol/L 22 - 30 mmol/L [facility] Creatinine [Mass/Vol] 0.64 mg/dL 0.58 - 0.96 mg/dL [facility] Estimated Glomerular Filtration Rate 98 mL/min/1.73m >=60 mL/min/1.73m [facility] Glucose [Mass/Vol] 84 mg/dL 74 - 99 mg/dL [facility] Potassium [Moles/Vol] 4.4 mmol/L 3.7 - 5.1 mmol/L [facility] Protein [Mass/Vol] 7.3 g/dL 6.3 - 8.0 g/dL [facility] Sodium [Moles/Vol] 142 mmol/L 136 - 144 mmol/L [facility] Urea nitrogen [Mass/Vol] 15 mg/dL 7 - 21 mg/d L [facility] Lipid 1996 panelon 3 Cholesterol [Mass/Vol] 169 mg/dL <200 mg/dL [facility] Cholesterol in HDL [Mass/Vol] 54 mg/dL >39 mg/dL [facility] Cholesterol in LDL [Mass/Vol] 85 mg/dL <100 mg/dL [facility] Cholesterol in LDL/Cholesterol in HDL [Mass ratio] 1.57 {ratio} <2.54 [facility] Cholesterol in VLDL [Mass/Vol] 30 mg/dL High <30 mg/dL [facility] Cholesterol non HDL [Mass/Vol] 115 mg/dL <130 mg/dL [facility] Cholesterol.total/Choles terol in HDL [Mass ratio] 3.13 {ratio} <5.10 [facility] Fasting Time 10 hrs [facility] Triglyceride [Mass/Vol] 150 mg/dL High <150 mg/dL [facility] Basic metabolic 1998 panelon 05-24-2022 Anion gap [Moles/Vol] 3 mmol/L 3 - 13 mmol/L [facility] Calcium [Mass/Vol] 8.4 mg/dL 8.4 - 10. 4 mg/dL [facility] Chloride [Moles/Vol] 106 mmol/L 98 - 10 7 mmol/L [facility] CO2 [Moles/Vol] 30 mmol/L 22 - 30 mmol/L [facility] Creatinine [Mass/Vol] 0.64 mg/dL 0.52 - 1.04 mg/dL [facility] GFR/1.73 sq M.predicted MDRD (S/P/Bld) [Vol rate/Area] - PINF [facility] Comment on above: Calculation based on the Chronic Kidney Disease Epidemiology Collaboration (CKD-EPI) equation refit without adjustment for race Glucose [Mass/Vol] 157 mg/dL High 70 - 100 mg/dL [facility] Interpretation and review of laboratory results Abnormal [facility] Potassium [Moles/Vol] 3.6 mmol/L 3.5 - 5.1 mmol/L [facility] Sodium [Moles/Vol] 139 mmol/L 135 - 145 mmol/L [facility] Urea nitrogen [Mass/Vol] 12 mg/dL 7 - 17 mg/d L [facility] CBC W Auto Differential pane l (Bld)on 05-24-2022 Basophils (Bld) [#/Vol] 0.0 10*3/uL 0.0 - 0.2 10*3/uL [facility] Basophils/100 WBC (Bld) 0.5 % 0.0 - 2.0 % [facility] Eosinophils (Bld) [#/Vol] 0.3 10*3/uL 0.0 - 0.5 10*3/uL [facility] Eosinophils/100 WBC (Bld) 3.0 % 1.0 - 6.0 % [facility] Erythrocyte distribution width (RBC) [Ratio] 13.5 % 11.5 - 14.5 % [facility] Hematocrit (Bld) [Volume fraction] 30.6 % Low 35.0 - 47.0 % [facility] Hemoglobin (Bld) [Mass/Vol] 10.0 g/dL Low 11.7 - 16.0 g/dL [facility] Interpretation and review of laboratory results Abnormal [facility] Lymphocytes (Bld) [#/Vol] 0.8 10*3/uL Low 1.0 - 4.3 10*3/uL [facility] [employer] Lymphocytes/100 WBC (Bld) 8.6 % Low 20.0 - 40.0 % [facility] [employer] MCH (RBC) [Entitic mass] 31.0 pg 26. 0 - 34.0 pg [facility] MCHC (RBC) [Mass/Vol] 32.6 % 32.0 - 36.0 % [facility] MCV (RBC) [Entitic vol] 95.1 fL 80.0 - 98.0 fL [facility] Monocytes (Bld) [#/Vol] 0.5 10*3/uL 0.0 - 0.8 10*3/uL [facility] Monocytes/100 WBC (Bld) 5.7 % 2.0 - 10.0 % [facility] Neutrophils (Bld) [#/Vol] 7.6 10*3/uL High 1.8 - 7.0 10*3/uL [facility] Neutrophils/100 WBC (Bld) 82.2 % High 40.0 - 80.0 % [facility] Nucleated RBC/100 WBC (Bld) [Ratio] 0.0 % [facility] [employer] Platelet mean volume (Bld) [Entitic vol] 7.1 fL Low 7.4 - 12.4 fL [facility] Platelets (Bld) [#/Vol] 261 10*3/uL 140 - 440 10*3/uL [facility] RBC (Bld) [#/Vol] 3.22 10*6/uL Low 3.8 - 5.20 10*6/uL [facility] WBC (Bld) [#/Vol] 9.3 10*3/uL 3.6 - 10.7 10*3/uL [facility] Basic metabolic 1998 panelon 05-23-2022 Anion gap [Moles/Vol] 2 mmol/L Low 3 - 13 mmol/L [facility] [employer] Calcium [Mass/Vol] 8.5 mg/dL 8.4 - 10. 4 mg/dL [facility] Chloride [Moles/Vol] 109 mmol/L High 98 - 10 7 mmol/L [facility] [employer] CO2 [Moles/Vol] 28 mmol/L 22 - 30 mmol/L [facility] Creatinine [Mass/Vol] 0.68 mg/dL 0.52 - 1.04 mg/dL [facility] GFR/1.73 sq M.predicted MDRD (S/P/Bld) [Vol rate/Area] - PINF [facility] Comment on above: Calculation based on the Chronic Kidney Disease Epidemiology Collaboration (CKD-EPI) equation refit without adjustment for race Glucose [Mass/Vol] 104 mg/dL High 70 - 100 mg/dL [facility] Interpretation and review of laboratory results Abnormal [facility] Potassium [Moles/Vol] 3.6 mmol/L 3.5 - 5.1 mmol/L [facility] Sodium [Moles/Vol] 138 mmol/L 135 - 145 mmol/L [facility] Urea nitrogen [Mass/Vol] 13 mg/dL 7 - 17 mg/d L [facility] CBC W Auto Differential pane l (Bld)Ordered By: Crystal Dupont on 05-23-2022 Basophils (Bld) [#/Vol] 0.1 10*3/uL 0.0 - 0.2 10*3/uL [facility] [employer] Basophils/100 WBC (Bld) 0.5 % 0.0 - 2.0 % [facility] Eosinophils (Bld) [#/Vol] 0.2 10*3/uL 0.0 - 0.5 10*3/uL [facility] Eosinophils/100 WBC (Bld) 2.5 % 1.0 - 6.0 % [facility] Erythrocyte distribution width (RBC) [Ratio] 13.9 % 11.5 - 14.5 % [facility] Hematocrit (Bld) [Volume fraction] 31.1 % Low 35.0 - 47.0 % [facility] Hemoglobin (Bld) [Mass/Vol] 10.3 g/dL Low 11.7 - 16.0 g/dL [facility] Interpretation and review of laboratory results Abnormal [facility] Lymphocytes (Bld) [#/Vol] 0.7 10*3/uL Low 1.0 - 4.3 10*3/uL [facility] Lymphocytes/100 WBC (Bld) 6.8 % Low 20.0 - 40.0 % [facility] MCH (RBC) [Entitic mass] 31.5 pg 26. 0 - 34.0 pg [facility] MCHC (RBC) [Mass/Vol] 33.1 % 32.0 - 36.0 % [facility] MCV (RBC) [Entitic vol] 95.1 fL 80.0 - 98.0 fL [facility] Monocytes (Bld) [#/Vol] 0.7 10*3/uL 0.0 - 0.8 10*3/uL [facility] Monocytes/100 WBC (Bld) 7.5 % 2.0 - 10.0 % [facility] Neutrophils (Bld) [#/Vol] 7.9 10*3/uL High 1.8 - 7.0 10*3/uL [facility] Neutrophils/100 WBC (Bld) 82.7 % High 40.0 - 80.0 % [facility] Nucleated RBC/100 WBC (Bld) [Ratio] 0.1 % [facility] [employer] Platelet mean volume (Bld) [Entitic vol] 6.7 fL Low 7.4 - 12.4 fL [facility] Platelets (Bld) [#/Vol] 248 10*3/uL 140 - 440 10*3/uL [facility] RBC (Bld) [#/Vol] 3.27 10*6/uL Low 3.8 - 5.20 10*6/uL [facility] WBC (Bld) [#/Vol] 9.6 10*3/uL 3.6 - 10.7 10*3/uL [facility] Laboratory - Chemistry and C hemistry - challengeon 05-23-2022 Magnesium [Mass/Vol] 1.9 mg/dL 1.6 - 2 .3 mg/dL [facility] Magnesium [Mass/Vol]on 05-23 Interpretation and review of laboratory results Normal [facility] No Panel Informationon 05-23 [facility] Basic metabolic 1998 panelon 05-22-2022 Anion gap [Moles/Vol] 2 mmol/L Low 3 - 13 mmol/L [facility] Calcium [Mass/Vol] 8.4 mg/dL 8.4 - 10. 4 mg/dL [facility] Chloride [Moles/Vol] 105 mmol/L 98 - 10 7 mmol/L [facility] CO2 [Moles/Vol] 30 mmol/L 22 - 30 mmol/L [facility] Creatinine [Mass/Vol] 0.69 mg/dL 0.52 - 1.04 mg/dL [facility] GFR/1.73 sq M.predicted MDRD (S/P/Bld) [Vol rate/Area] - PINF [facility] Comment on above: Calculation based on the Chronic Kidney Disease Epidemiology Collaboration (CKD-EPI) equation refit without adjustment for race Glucose [Mass/Vol] 86 mg/dL 70 - 100 mg/dL [facility] Interpretation and review of laboratory results Abnormal [facility] Potassium [Moles/Vol] 4.2 mmol/L 3.5 - 5.1 mmol/L [facility] Sodium [Moles/Vol] 137 mmol/L 135 - 145 mmol/L [facility] Urea nitrogen [Mass/Vol] 13 mg/dL 7 - 17 mg/d L [facility] CBC W Auto Differential pane l (Bld)Ordered By: Hakeem Cruz on 05-22-2022 Basophils (Bld) [#/Vol] 0.0 10*3/uL 0.0 - 0.2 10*3/uL [facility] Basophils/100 WBC (Bld) 0.5 % 0.0 - 2.0 % [facility] Eosinophils (Bld) [#/Vol] 0.3 10*3/uL 0.0 - 0.5 10*3/uL [facility] Eosinophils/100 WBC (Bld) 4.1 % 1.0 - 6.0 % [facility] Erythrocyte distribution width (RBC) [Ratio] 14.0 % 11.5 - 14.5 % [facility] Hematocrit (Bld) [Volume fraction] 33.0 % Low 35.0 - 47.0 % [facility] Hemoglobin (Bld) [Mass/Vol] 10.8 g/dL Low 11.7 - 16.0 g/dL [facility] Interpretation and review of laboratory results Abnormal [facility] Lymphocytes (Bld) [#/Vol] 1.0 10*3/uL 1.0 - 4.3 10*3/uL [facility] Lymphocytes/100 WBC (Bld) 12.8 % Low 20.0 - 40.0 % [facility] MCH (RBC) [Entitic mass] 31.2 pg 26. 0 - 34.0 pg [facility] MCHC (RBC) [Mass/Vol] 32.8 % 32.0 - 36.0 % [facility] MCV (RBC) [Entitic vol] 95.1 fL 80.0 - 98.0 fL [facility] Monocytes (Bld) [#/Vol] 0.6 10*3/uL 0.0 - 0.8 10*3/uL [facility] Monocytes/100 WBC (Bld) 8.6 % 2.0 - 10.0 % [facility] Neutrophils (Bld) [#/Vol] 5.6 10*3/uL 1.8 - 7.0 10*3/uL [facility] Neutrophils/100 WBC (Bld) 74.0 % 40.0 - 80.0 % [facility] Nucleated RBC/100 WBC (Bld) [Ratio] 0.0 % [facility] Platelet mean volume (Bld) [Entitic vol] 7.0 fL Low 7.4 - 12.4 fL [facility] Platelets (Bld) [#/Vol] 238 10*3/uL 140 - 440 10*3/uL [facility] RBC (Bld) [#/Vol] 3.47 10*6/uL Low 3.8 - 5.20 10*6/uL [facility] WBC (Bld) [#/Vol] 7.5 10*3/uL 3.6 - 10.7 10*3/uL [facility] Laboratory - Chemistry and C hemistry - challengeon 05-22-2022 Magnesium [Mass/Vol] 2.2 mg/dL 1.6 - 2 .3 mg/dL [facility] Magnesium [Mass/Vol]on 05-22 Interpretation and review of laboratory results Normal [facility] No Panel Informationon 05-22 [facility] Basic metabolic 1998 panelon 05-21-2022 Anion gap [Moles/Vol] 1 mmol/L Low 3 - 13 mmol/L [facility] Calcium [Mass/Vol] 9.1 mg/dL 8.4 - 10. 4 mg/dL [facility] Chloride [Moles/Vol] 103 mmol/L 98 - 10 7 mmol/L [facility] CO2 [Moles/Vol] 35 mmol/L High 22 - 30 mmol/L [facility] Creatinine [Mass/Vol] 0.78 mg/dL 0.52 - 1.04 mg/dL [facility] GFR/1.73 sq M.predicted MDRD (S/P/Bld) [Vol rate/Area] 84.4 mL/min/{1.73_m2} - PINF [facility] Comment on above: Calculation based on the Chronic Kidney Disease Epidemiology Collaboration (CKD-EPI) equation refit without adjustment for race Glucose [Mass/Vol] 116 mg/dL High 70 - 100 mg/dL [facility] Potassium [Moles/Vol] 4.2 mmol/L 3.5 - 5.1 mmol/L [facility] Sodium [Moles/Vol] 138 mmol/L 135 - 145 mmol/L [facility] Urea nitrogen [Mass/Vol] 15 mg/dL 7 - 17 mg/d L [facility] CBC W Auto Differential pane l (Bld)Ordered By: Yair Sanchez on 05-21-2022 Basophils (Bld) [#/Vol] 0.0 10*3/uL 0.0 - 0.2 10*3/uL [facility] Basophils/100 WBC (Bld) 0.2 % 0.0 - 2.0 % [facility] Eosinophils (Bld) [#/Vol] 0.2 10*3/uL 0.0 - 0.5 10*3/uL [facility] Eosinophils/100 WBC (Bld) 1.8 % 1.0 - 6.0 % [facility] Erythrocyte distribution width (RBC) [Ratio] 14.0 % 11.5 - 14.5 % [facility] Hematocrit (Bld) [Volume fraction] 39.0 % 35.0 - 47.0 % [facility] Hemoglobin (Bld) [Mass/Vol] 12.5 g/dL 11.7 - 16.0 g/dL [facility] Interpretation and review of laboratory results Abnormal [facility] Lymphocytes (Bld) [#/Vol] 0.7 10*3/uL Low 1.0 - 4.3 10*3/uL [facility] Lymphocytes/100 WBC (Bld) 5.6 % Low 20.0 - 40.0 % [facility] MCH (RBC) [Entitic mass] 30.7 pg 26. 0 - 34.0 pg [facility] MCHC (RBC) [Mass/Vol] 32.1 % 32.0 - 36.0 % [facility] MCV (RBC) [Entitic vol] 95.4 fL 80.0 - 98.0 fL [facility] Monocytes (Bld) [#/Vol] 0.6 10*3/uL 0.0 - 0.8 10*3/uL [facility] Monocytes/100 WBC (Bld) 5.3 % 2.0 - 10.0 % [facility] [employer] Neutrophils (Bld) [#/Vol] 10.6 10*3/uL High 1.8 - 7.0 10*3/uL [facility] [employer] Neutrophils/100 WBC (Bld) 87.1 % High 40.0 - 80.0 % [facility] [employer] Nucleated RBC/100 WBC (Bld) [Ratio] 0.0 % [facility] [employer] Platelet mean volume (Bld) [Entitic vol] 7.5 fL 7.4 - 12.4 fL [facility] [employer] Platelets (Bld) [#/Vol] 339 10*3/uL 140 - 440 10*3/uL [facility] [employer] RBC (Bld) [#/Vol] 4.09 10*6/uL 3.8 - 5.20 10*6/uL [facility] [employer] WBC (Bld) [#/Vol] 12.1 10*3/uL High 3.6 - 10.7 10*3/uL [facility] CT Cervical spine WO contras ton 05-21-2022 1. No fracture or subluxation of the cervical vertebrae. 2. 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 3. Diffuse osteopenia. 4. Emphysema. Report Dictated on Electronically Signed By: Jaspreet Jeong Electronically Signed Date/Time: 05/21/2022 4:41 AM [facility] Name[facility]ONZALO [facility]CA [facility] 1955 [id number] Exam Date/Time: 05/21/2022 04:31 Procedure: CT CERVICAL [...] Jeong Electronically Signed Date/Time: 05/21/2022 4:41 AM [facility] Radiology Study observation (narrative) [facility] CT Head WO contraston 2022 No acute intracranial process. Minimal right periorbital soft tissue swelling. Report Dictated on Electronically Signed By: Jaspreet Jeong Electronically Signed Date/Time: 05/21/2022 4:38 AM [facility] Patient Name: [...] Right preorbital air density is normal finding. [facility] Jaspreet Jeong DO [...] Electronically Signed Date/Time: 05/21/2022 4:38 AM EST [facility] Radiology Study observation (narrative) [facility] Laboratory - Chemistry and C hemistry - challengeon 05-21-2022 Magnesium [Mass/Vol] 2.6 mg/dL High 1.6 - 2 .3 mg/dL [facility] No Panel Informationon 05-21 Interpretation and review of laboratory results Abnormal [facility] Martha Flores MD 05/21/2022 5:56 AM [...] Procedure completion: Tolerated well, no immediate complications [facility] Martha Flores MD 05/21/2022 5:56 AM [facility] Performed by: Martha Flores MD Authorized by: Martha Flores MD Consent: Consent obtained: Verbal Consent given by: Patient Risks discussed: Infection, need for additional repair, poor cosmetic result and poor wound healing Dickey protocol: Patient identity confirmed: Verbally with patient [...] Procedure completion: Tolerated well, no immediate complications [facility] Martha Flores MD 05/21/2022 5:56 AM [facility] Performed by: Martha Flores MD Authorized by: Martha Flores MD Consent: Consent obtained: Verbal Consent given by: Patient Risks discussed: Infection, pain, poor cosmetic result, poor wound healing and need for additional repair Dickey protocol: Patient identity confirmed: Verbally with patient [...] Procedure completion: Tolerated well, no immediate complications [facility] XR Chest Single viewon 05-21 1. [...] Electronically Signed Date/Time: 05/21/2022 3:52 AM EST [facility] Patient Name: GONZALO DELUCA : 1955 Exam Date/Time: 05/21/2022 04:12 Procedure: XR CHEST 1 VIEW Ordering Provider: FLORES PRISCA Reason For Exam: fall PORTABLE CHEST CLINICAL INDICATION: Fall. COMPARISON: 03/16/2020. Correlation is made with CT chest dated 10/14/2021. TECHNIQUE: A single frontal view of thorax was obtained and reviewed. [facility] Jaspreet Jeong DO - 05/21/2022 [...] fragments. Diffuse osteopenia. Report Dictated on Workstation: [employer] Electronically Signed By: Jaspreet Jeong Electronically Signed Date/Time: 05/21/2022 3:52 AM EST [facility] Radiology Study observation (narrative) [facility] XR Elbow - right 3 Viewson 0 05-21-2022 Elbow joint effusion . Occult elbow osseous fracture is likely, but not visualized. Osteopenia. Follow-up right elbow radiograph in 7-10 days is recommended. Report Dictated on Workstation: [employer] Electronically Signed By: Jaspreet Jeong Electronically Signed Date/Time: 05/21/2022 4:16 AM EST [facility] Patient Name: GONZALO DELUCA : 1955 [...] are demineralized. No bone lesion is identified. [facility] Jaspreet Jeong, DO - 05/21/2022 Patient Name: [...] Electronically Signed Date/Time: 05/21/2022 4:16 AM EST [facility] Radiology Study observation (narrative) [facility] German [facility] XR Elbow - right 3 ViewsOrde red By: Jaspreet Jeong on 05-21-2022 [facility] [employer] Work Phone: XR Pelvis 1 or 2 Viewson No acute traumatic osseous abnormality. Osteopenia. Report Dictated on Workstation: [employer] Electronically Signed By: Jaspreet Jeong Electronically Signed Date/Time: 05/21/2022 4:17 AM EST [facility] Patient Name: GONZALO DELUCA : 1955 [...] lesion or soft tissue abnormality is identified. [facility] Jaspreet Jeong, DO - 05/21/2022 Patient Name: GONZALO DELUCA : 1955 Exam Date/Time: 05/21/2022 04:12 Procedure: XR PELVIS 1-2 VIEWS Ordering Provider: KIHART PRISCA Reason For Exam: fall PELVIS: Indication: [...] osseous abnormality. Osteopenia. Report Dictated on Workstation: [employer] Electronically Signed By: Jaspreet Jeong Electronically Signed Date/Time: 05/21/2022 4:17 AM EST [facility] Radiology Study observation (narrative) Abe German alth XR Shoulder - right 2 Viewso n 05-21-2022 1. Acute, transverse fracture through the right proximal surgical humeral neck. There is mild avulsion fracture of the right greater tuberosity. Diffuse osteopenia. Remote multiple mid thoracic compression fracture deformities, unchanged. Emphysema. Report Dictated on Workstation: [employer] Electronically Signed By: Jaspreet Jeong Electronically Signed Date/Time: 05/21/2022 3:56 AM EST [facility] Patient Name: GONZALO DELUCA : 1955 [...] hyperinflated with flattened diaphragms, consistent with COPD. [facility] Jaspreet Jeong, DO - 05/21/2022 Patient [...] Electronically Signed Date/Time: 05/21/2022 3:56 AM EST [facility] Radiology Study observation (narrative) [facility] Basic Metabolic Panelon 07-2 Anion gap [Moles/Vol] 4 mmol/L Normal 3-13 [facility] Comment on above: Performed By: #### B MP3 #### [facility] [address] [place] [address] Calcium [Mass/Vol] 8.8 mg/dL Normal 8.4-10.4 [facility] Comment on above: Performed By: #### B MP3 #### [facility] [address] [place] [address] CO2 [Moles/Vol] 31 mmol/L High 22-30 [facility] Comment on above: Performed By: #### B MP3 #### [facility] [address] [place] [address] Glucose [Mass/Vol] 91 mg/dL Normal 70-100 [facility] Comment on above: Performed By: #### B MP3 #### [facility] [address] [place] [address] Urea nitrogen [Mass/Vol] 15 mg/dL Normal 9-20 [facility] Comment on above: Performed By: #### B MP3 #### [facility] [address] [place] [address] Creatinine [Mass/Vol] 0.80 mg/dL Normal 0.52-1.25 [facility] Comment on above: Performed By: #### B MP3 #### [facility] [address] [place] [address] GFR/1.73 sq M.predicted among blacks MDRD (S/P/Bld) [Vol rate/Area] 89.7 mL/min/{1.73_m2} Normal >60 [facility] Comment on above: Performed By: #### B MP3 #### [facility] [address] [place] [address] GFR/1.73 sq M.predicted among non-blacks MDRD (S/P/Bld) [Vol rate/Area] 77.4 mL/min/{1.73_m2} Normal >60 [facility] Comment on above: Result Comment: KDIG [...] secretion. Performed By: #### B MP3 #### [facility] [address] [place] [address] Potassium [Moles/Vol] 4.1 mmol/L Normal 3.5-5.1 [facility] Comment on above: Performed By: #### B MP3 #### [facility] [address] [place] [address] Chloride [Moles/Vol] 106 mmol/L Normal 98-107 [facility] Comment on above: Performed By: #### B MP3 #### [facility] [address] [place] [address] Sodium [Moles/Vol] 141 mmol/L Normal 135-145 [facility] [email or web address] Comment on above: Performed By: #### B MP3 #### [employer] [facility] [address] [place] [address] Anion gap [Moles/Vol] 4 mmol/L 3 - 13 mmol/L [facility] Calcium [Mass/Vol] 8.8 mg/dL 8.4 - 10. 4 mg/dL [facility] Chloride [Moles/Vol] 106 mmol/L 98 - 10 7 mmol/L [facility] CO2 [Moles/Vol] 31 mmol/L High 22 - 30 mmol/L [facility] Creatinine [Mass/Vol] 0.8 mg/dL 0.52 - 1.25 mg/dL [facility] EGFR IF NonAfrican Ecuadorean 77.4 mL/min 60 - PINF mL/min [facility] Comment on above: KDIGO guidelines pro [...] - 20 mg/dL [facility] Test Performed by [employer], [address], [place], [place] [address] [facility] CT Chest w/ Contraston 10-14 CT Chest w/ Contrast Patient Name: GONZALO EDEN Computed Tomography ACCESSION EXAM DATE/TIME PROCEDURE ORDERING PROVIDER [id number] 10/14/2021 14:[address] Thorax w/ Contrast ZIYAD MENENDEZ CPT code 66962 Q9967 Reason For Exam (CT Thorax w/ [...] Transcribed Date and Time: 10/16/2021 12:06 Normal [facility] TOX SCREEN ROUT URon 022 Amphetamines Confirm (U) [Mass/Vol] Negative Negative [facility] Barbiturates Urine Negative Negative [facility] Benzodiazepines Urine Negative Negative [facility] Cannabinoids, Urine Negative Negative [facility] Cocaine Ql (U) Negative Negative [facility] Ethanol (U) [Mass/Vol] <11 <11 mg/dL Cl [facility] Opiates Screen Ql (U) Negative Negative [facility] oxyCODONE cutoff Screen (U) [Mass/Vol] Positive Abnormal Negative [facility] Phencyclidine Ql (U) Negative Negative [facility] CT Chest w/ Contraston 12-26 CT Chest w/ Contrast Patient Name: GONZALO EDEN Computed Tomography ACCESSION EXAM DATE/TIME PROCEDURE ORDERING PROVIDER [id number] 12/26/2020 11:[address] Thorax w/ Contrast ZIYAD MENENDEZ CPT code 08097 Q9967 Reason For Exam (CT Thorax w/ [...] Transcribed Date and Time: 12/29/2020 2:04 Normal [facility] Creatinineon 12-26-2020 Creatinine [Mass/Vol] 0.73 mg/dL Normal 0.52-1.25 [facility] Comment on above: Performed By: #### C RTN3 #### [facility] [address] [place] [address] GFR/1.73 sq M.predicted among blacks MDRD (S/P/Bld) [Vol rate/Area] mL/min/{1.73_m2} Normal >60 [facility] Comment on above: Performed By: #### C RTN3 #### [facility] [address] [place] [address] GFR/1.73 sq M.predicted among non-blacks MDRD (S/P/Bld) [Vol rate/Area] 87.0 mL/min/{1.73_m2} Normal >60 [facility] Comment on above: Result Comment: KDIG [...] secretion. Performed By: #### C RTN3 #### [facility] [employer] [facility] [address] [place] [address] Creatinine, SerumOrdered By: Ziyad Menendez on 12-26-2020 Creatinine [Mass/Vol] 0.73 mg/dL 0.52 - 1.25 mg/dL [facility] Work Phone: EGFR IF NonAfrican Ecuadorean 87.0 mL/min >60 [facility] Work Phone: Comment on above: KDIGO guidelines [...] MDRD (S/P/Bld) [Vol rate/Area] mL/min/{1.73_m2} >60 mL/min [facility] Work Phone: Test Performed by [employer] [facility], [address] [place], [place] [address] [facility] Work Phone: [phone] [facility] Work Phone: [phone] XR ELBOW RIGHT (MIN 3 VIEWS) Ordered By: Lauren Lutz on 10-16-2020 Patient Name: GONZALO DELUCA Diagnostic Radiology ACCESSION EXAM DATE/TIME PROCEDURE ORDERING PROVIDER [id number] 10/16/2020 15:30 EDT CR Elbow 3+ Views Right NADEEM LUTZ DANIEL M CPT code 43296 Reason For Exam (CR Elbow 3+ Views [...] ANTHONY Transcribed Date and Time: 10/16/2020 3:57 [facility] Work Phone: Real, [facility] Incoming Radiology Results From [facility] - 10/16/2020 3:57 PM EDT Patient Name: GONZALO DELUCA Diagnostic Radiology ACCESSION EXAM DATE/TIME PROCEDURE ORDERING PROVIDER [id number] 10/16/2020 15:30 EDT CR Elbow 3+ Views Right NADEEM LUTZ DANIEL M CPT code 63270 Reason For Exam (CR Elbow 3+ Views [...] Lauren Lutz on 10-16-2020 Patient Name: GONZALO EDEN Diagnostic Radiology ACCESSION EXAM DATE/TIME PROCEDURE ORDERING PROVIDER [id number] 10/16/2020 15:30 EDT CR Spine Lumbosacral 2 NELDA, NADEEM, LAUREN M or 3 Views CPT code 61706 Reason For Exam (CR Spine Lumbosacral 2 [...] Phone: [facility], [facility] Incoming Radiology Results From [facility] - 10/16/2020 5:12 PM EDT Patient Name: GONZALO DELUCA Diagnostic Radiology ACCESSION EXAM DATE/TIME PROCEDURE ORDERING PROVIDER [id number] 10/16/2020 15:30 EDT CR Spine Lumbosacral 2 NADEEM LUTZ DANIEL M or 3 Views CPT code 59987 Reason For Exam (CR Spine Lumbosacral 2 [...] Radiology ACCESSION EXAM DATE/TIME PROCEDURE ORDERING PROVIDER [id number] 10/16/2020 15:30 EDT CR Sacrum/Coccyx 2+ NADEEM LUTZ DANIEL M Views CPT code 53077 Reason For Exam (CR Sacrum/Coccyx 2+ Views) [...] R Transcribed Date and Time: 10/16/2020 5:14 [facility] Work Phone: [facility] - 10/16/2020 5:14 PM EDT Patient Name: GONZALO DELUCA Diagnostic Radiology ACCESSION EXAM DATE/TIME PROCEDURE ORDERING PROVIDER [id number] 10/16/2020 15:30 EDT CR Sacrum/Coccyx 2+ NADEEM LUTZ, LAUREN M Views CPT code 44033 Reason For Exam (CR Sacrum/Coccyx 2+ Views) [...] R Transcribed Date and Time: 10/16/2020 5:14 [facility] Work Phone: [facility] Work Phone: CT CHEST W CONTRASTOrdered B y: Ziyad Menendez on 09-24-2020 Patient Name: GONZALO DELUCA Computed Tomography ACCESSION EXAM DATE/TIME PROCEDURE ORDERING PROVIDER [id number] 09/24/2020 12:[address] Thorax w/ Contrast MENENDEZVANESSA RILEYHEN CPT code 21548 Q9967 Reason For Exam (CT Thorax w/ [...] Phone: Real, [facility] Incoming Radiology Results From [facility] - 09/24/2020 6:29 PM EDT Patient Name: GONZALO DELUCA Computed Tomography ACCESSION EXAM DATE/TIME PROCEDURE ORDERING PROVIDER [id number] 09/24/2020 12:[address] Thorax w/ Contrast ZIYAD MENENDEZ CPT code 65455 Q9967 Reason For Exam (CT Thorax w/ [...] [facility] 09-12-2020 [facility] HNO ID: [id number] Author: RT Alfred(R) Service: Radiology Author Type: Stretcher [employer] Drier Type: [facility] Filed: 09/12/2020 12:49 PM [...] Anion gap [Moles/Vol] 5 mmol/L Low 8-16 [facility] Comment on above: Order Comment: Speci men Type: BLOOD SPECIMEN Performed By: #### 2 4321-2 #### [facility] CLIA [id number] [address] [place] [address] [place] Calcium [Mass/Vol] 8.8 mg/dL Normal 8.5-10.1 [facility] Comment on above: Order Comment: Speci men Type: BLOOD SPECIMEN Performed By: #### 2 4321-2 #### [facility] CLIA [id number] [address] [place] [address] [place] Chloride [Moles/Vol] 102 mmol/L Normal 98-107 [facility] Comment on above: Order Comment: Speci men Type: BLOOD SPECIMEN Performed By: #### 2 4321-2 #### [facility] CLIA [id number] [address] [place] [address] [place] CO2 [Moles/Vol] 33 mmol/L High 21-32 [facility] Comment on above: Order Comment: Speci men Type: BLOOD SPECIMEN Performed By: #### 2 4321-2 #### [facility] CLIA [id number] [address] [place] [address] Creatinine [Mass/Vol] 0.86 mg/dL Normal 0.51-0.95 [facility] Comment on above: Order Comment: Speci men Type: BLOOD SPECIMEN Performed By: #### 2 4321-2 #### [facility] CLIA [id number] [address] [place] [address] OF [place] GFR/1.73 sq M.predicted among blacks MDRD (S/P/Bld) [Vol rate/Area] mL/min/{1.73_m2} [facility] Comment on above: Order Comment: Speci men Type: BLOOD SPECIMEN Performed By: #### 2 4321-2 #### [facility] CLIA [id number] [address] [place] [address] GFR/1.73 sq M.predicted among non-blacks MDRD (S/P/Bld) [Vol rate/Area] mL/min/{1.73_m2} [facility] Comment on above: Order Comment: [...] 4321-2 #### [facility] CLIA [id number] [address] [place] [address] [place] Glucose [Mass/Vol] 98 mg/dL Normal 70-99 [facility] Comment on above: Order Comment: Speci men Type: BLOOD SPECIMEN Result Comment: The [place] Diabetes Association (ADA) provides guidance for cutoff [...] Standards of Medical Care in Diabetes 2016, [place] [employer] Association. Diabetes Care. 2016.39(Suppl 1). Performed By: #### 2 4321-2 #### [facility] CLIA [id number] [address] [place] [address] [place] Potassium [Moles/Vol] 3.7 mmol/L Normal 3.5-5.1 [facility] Comment on above: Order Comment: Speci men Type: BLOOD SPECIMEN Performed By: #### 2 4321-2 #### [facility] CLIA [id number] [address] [place] [address] [place] Sodium [Moles/Vol] 140 mmol/L Normal 136-145 [facility] Comment on above: Order Comment: Speci men Type: BLOOD SPECIMEN Performed By: #### 2 4321-2 #### [facility] CLIA [id number] [address] [place] [address] [place] Urea nitrogen [Mass/Vol] 17 mg/dL Normal 7-18 [facility] Comment on above: Order Comment: Speci men Type: BLOOD SPECIMEN Performed By: #### 2 4321-2 #### [facility] CLIA [id number] [address] [place] [address] [place] CBC W Auto Differential pane l (Bld)on 09-12-2020 Basophils (Bld) [#/Vol] 0.03 10*3/uL Normal <0.11 [facility] Comment on above: Order Comment: Speci men Type: BLOOD SPECIMEN Performed By: #### 5 7021-8 #### [facility] CLIA [id number] [address] [place] [address] Basophils/100 WBC (Bld) 0.5 % Normal [facility] Comment on above: Order Comment: Speci men Type: BLOOD SPECIMEN Performed By: #### 5 7021-8 #### [facility] CLIA [id number] [address] [place] [address] Differential cell count method Nom (Bld) Auto Normal [facility] Comment on above: Order Comment: Speci men Type: BLOOD SPECIMEN Performed By: #### 5 7021-8 #### [facility] CLIA [id number] [address] [place] [address] Eosinophils (Bld) [#/Vol] 0.49 10*3/uL High <0.46 [facility] Comment on above: Order Comment: Speci men Type: BLOOD SPECIMEN Performed By: #### 5 7021-8 #### [facility] CLIA [id number] [address] [place] [address] Eosinophils/100 WBC (Bld) 8.2 % Normal [facility] Comment on above: Order Comment: Speci men Type: BLOOD SPECIMEN Performed By: #### 5 7021-8 #### [facility] CLIA [id number] [address] [place] [address] Erythrocyte distribution width (RBC) [Ratio] 12.7 % Normal 11.5-15.0 [facility] Comment on above: Order Comment: Speci men Type: BLOOD SPECIMEN Performed By: #### 5 7021-8 #### [facility] CLIA [id number] [address] [place] [address] Hematocrit (Bld) [Volume fraction] 34.2 % Low 36.0-46.0 [facility] Comment on above: Order Comment: Speci men Type: BLOOD SPECIMEN Performed By: #### 5 7021-8 #### [facility] CLIA [id number] [address] [place] [address] Hemoglobin (Bld) [Mass/Vol] 10.8 g/dL Low 11.5-15.5 [facility] Comment on above: Order Comment: Speci men Type: BLOOD SPECIMEN Performed By: #### 5 7021-8 #### [facility] CLIA [id number] [address] [place] [address] Lymphocytes (Bld) [#/Vol] 0.59 10*3/uL Low 1.00-4.00 [facility] Comment on above: Order Comment: Speci men Type: BLOOD SPECIMEN Performed By: #### 5 7021-8 #### [facility] CLIA [id number] [address] [place] [address] Lymphocytes/100 WBC (Bld) 9.9 % Normal [facility] Comment on above: Order Comment: Speci men Type: BLOOD SPECIMEN Performed By: #### 5 7021-8 #### [facility] CLIA [id number] [address] [place] [address] MCH (RBC) [Entitic mass] 30.7 pg Normal 26.0-34.0 [facility] Comment on above: Order Comment: Speci men Type: BLOOD SPECIMEN Performed By: #### 5 7021-8 #### [facility] CLIA [id number] [address] [place] [address] [facility] MCHC (RBC) [Mass/Vol] 31.6 g/dL Normal 30.5-36.0 [facility] Comment on above: Order Comment: Speci men Type: BLOOD SPECIMEN Performed By: #### 5 7021-8 #### [facility] CLIA [id number] [address] [place] [address] MCV (RBC) [Entitic vol] 97.2 fL Normal 80.0-100.0 [facility] Comment on above: Order Comment: Speci men Type: BLOOD SPECIMEN Performed By: #### 5 7021-8 #### [facility] CLIA [id number] [address] [place], [place] [address] [facility] Monocytes (Bld) [#/Vol] 0.63 10*3/uL Normal <0.87 [facility] Comment on above: Order Comment: Speci men Type: BLOOD SPECIMEN Performed By: #### 5 7021-8 #### [facility] CLIA [id number] [address] [place] [address] Monocytes/100 WBC (Bld) 10.6 % Normal [facility] Comment on above: Order Comment: Speci men Type: BLOOD SPECIMEN Performed By: #### 5 7021-8 #### [facility] CLIA [id number] [address] [place] [address] Neutrophils (Bld) [#/Vol] 4.20 10*3/uL Normal 1.45-7.50 [facility] Comment on above: Order Comment: Speci men Type: BLOOD SPECIMEN Performed By: #### 5 7021-8 #### [facility] CLIA [id number] [address] [place], [place] [address] [facility] Neutrophils/100 WBC (Bld) 70.8 % Normal [facility] Comment on above: Order Comment: Speci men Type: BLOOD SPECIMEN Performed By: #### 5 7021-8 #### [facility] CLIA [id number] [address] [place], [place] [address] [facility] Platelet mean volume (Bld) [Entitic vol] 9.1 fL Normal 9.0-12.7 [facility] Comment on above: Order Comment: Speci men Type: BLOOD SPECIMEN Performed By: #### 5 7021-8 #### [facility] CLIA [id number] [address] [place] [address] [place] Platelets (Bld) [#/Vol] 215 10*3/uL Normal 150-400 [facility] Comment on above: Order Comment: Speci men Type: BLOOD SPECIMEN Performed By: #### 5 7021-8 #### [facility] CLIA [id number] [address] [place] [address] STATES OF [facility] RBC (Bld) [#/Vol] 3.52 10*6/uL Low 3.90-5.20 [facility] Comment on above: Order Comment: Speci men Type: BLOOD SPECIMEN Performed By: #### 5 7021-8 #### [facility] CLIA [id number] [address] [place] [address] WBC (Bld) [#/Vol] 5.94 10*3/uL Normal 3.70-11.00 [facility] Comment on above: Order Comment: Speci men Type: BLOOD SPECIMEN Performed By: #### 5 7021-8 #### [facility] CLIA [id number] [address] [place] [address] [facility] [address] BRAIN WO IVCONon 09-13-[address] BRAIN WO IVCON * * *Final Report* * * DATE OF EXAM: Sep 12 2020 1:00PM [facility] 0504 - CT BRAIN WO [...] clear. The visualized paranasal sinuses are clear. Flame Cutting Supervisor (topogram) images: No additional findings. IMPRESSION: 1. No CT evidence of acute intracranial abnormalities. 2. Small area of presumed encephalomalacia within right occipital lobe posteriorly. Clinical correlation is recommended. 3. Presumed postsurgical changes of right orbits are partially imaged. Concrete Puddler: PSCB Transcribe Date/Time: Sep 12 2020 1:04P [...] DATE OF EXAM: Sep 12 2020 1:00PM [facility] 0505 - CT CERVICAL SPINE [...] Counting reference: Craniocervical junction. Anatomic Variants: None. Flame Cutting Supervisor (topogram) images: No additional findings. Alignment: Grade [...] vertebrae with counting from the craniocervical junction. Concrete Puddler: [facility] Transcribe Date/Time: Sep 12 2020 1:12P Dictated by : ELIOT STERLING MD This examination was interpreted and the report reviewed and electronically signed by: ELIOT STERLING MD on Sep 12 2020 1:28PM EST [id number] Normal [facility] ED NOTEon 09-12-2020 ED NOTE HNO ID: [id number] Author: Ursula De León RN Service: Emergency Medicine Author Type: Registered Nurse Type: ED Notes Filed: 09/12/2020 1:53 PM Note Text: Normal [facility] ED NOTE HNO ID: [id number] Author: Griselda Gaviria RN Service: Emergency Medicine Author Type: Registered Nurse Type: ED Notes Filed: 09/12/2020 11:45 AM Note Text: Pt c/o frequent falls, injury to right shoulder. Pt also c/o possible UTI-having urinary frequency. Normal [facility] ED PROV NOTEon 09-12-2020 ED PROV NOTE HNO ID: [id number] Author: Sneha Jett DO Service: Emergency Medicine [...] Date - COPD (chronic obstructive pulmonary disease) ([facility]) - DDD (degenerative disc disease), lumbar - Encounter for chronic pain management - Major depression, recurrent, chronic ([facility]) - Osteoporosis - Pulmonary nodule, right 2015 [...] By: #### 2 4356-8 #### [facility] CLIA [id number] [facility] [place] [address] [place] Bilirubin Ql (U) Negative Normal Negative [facility] Comment on above: Order Comment: Speci men Type: URINE SPECIMEN Performed By: #### 2 4356-8 #### [facility] CLIA [id number] [facility] [place] [address] [place] Clarity (Unsp spec) Cloudy Abnormal Clear [facility] Comment on above: Order Comment: Speci men Type: URINE SPECIMEN Performed By: #### 2 4356-8 #### [facility] CLIA [id number] [facility] [place] [address] [place] Color (U) Yellow Normal Yellow [facility] Comment on above: Order Comment: Speci men Type: URINE SPECIMEN Performed By: #### 2 4356-8 #### [facility] CLIA [id number] [address] [place] [address] [facility] Epithelial cells LM.HPF (Urine sed) [#/Area] Few Normal [facility] Comment on above: Order Comment: Speci men Type: URINE SPECIMEN Performed By: #### 2 4356-8 #### [facility] CLIA [id number] [address] [address] [facility] Glucose Test strip (U) [Mass/Vol] Negative Normal Negative [facility] Comment on above: Order Comment: Speci men Type: URINE SPECIMEN Performed By: #### 2 4356-8 #### [facility] CLIA [id number] [address] [place], [place] [address] [place] [facility] Hemoglobin Ql (U) Trace Abnormal Negative [facility] Comment on above: Order Comment: Speci men Type: URINE SPECIMEN Performed By: #### 2 4356-8 #### [facility] CLIA [id number] [address] [address] [facility] Ketones Ql (U) Negative Normal Negative [facility] Comment on above: Order Comment: Speci men Type: URINE SPECIMEN Performed By: #### 2 4356-8 #### [facility] CLIA [id number] [address] [place], [place] [address] [facility] Leukocyte esterase Test strip Ql (U) 3+ Abnormal Negative [facility] Comment on above: Order Comment: Speci men Type: URINE SPECIMEN Performed By: #### 2 4356-8 #### [facility] CLIA [id number] [address] [address] [facility] Nitrite Ql (U) Negative Normal Negative [facility] Comment on above: Order Comment: Speci men Type: URINE SPECIMEN Performed By: #### 2 4356-8 #### [facility] CLIA [id number] [address] [address] [place] pH (U) 6.0 [pH] Normal 5.0-8.0 [facility] Comment on above: Order Comment: Speci men Type: URINE SPECIMEN Performed By: #### 2 4356-8 #### [facility] CLIA [id number] [address] [place] [address] Protein (U) [Mass/Vol] Negative Normal Negative [facility] Comment on above: Order Comment: Speci men Type: URINE SPECIMEN Performed By: #### 2 4356-8 #### [facility] CLIA [id number] [address] [place] [address] RBC LM.HPF (Urine sed) [#/Area] 0-3 /HPF Normal 0-3 /HPF [facility] Comment on above: Order Comment: Speci men Type: URINE SPECIMEN Performed By: #### 2 4356-8 #### [facility] CLIA [id number] [address] [place] [address] Specific gravity (U) [Rel density] 1.015 Normal 1.005-1.030 [facility] Comment on above: Order Comment: Speci men Type: URINE SPECIMEN Performed By: #### 2 4356-8 #### [facility] CLIA [id number] [address] [place] [address] Urobilinogen Ql (U) 0.2 EU/dL Normal 0.2-1.0 EU/dL [facility] Comment on above: Order Comment: Speci men Type: URINE SPECIMEN Performed By: #### 2 4356-8 #### [facility] CLIA [id number] [address] [place] [address] WBC LM.HPF (Urine sed) [#/Area] 11-25 /HPF Abnormal 0-5 /HPF [facility] Comment on above: Order Comment: Speci men Type: URINE SPECIMEN Performed By: #### 2 4356-8 #### [facility] CLIA [id number] [address] [place] [address] XR SHLDR >/=3V AP/HECTOR AP/OTH R RTon 09-12-2020 XR SHLDR >/=3V AP/HECTOR AP/OTHR RT * * *Final Report* * * DATE OF EXAM: Sep 12 2020 12:48PM [facility] - XR SHLDR >/=3V AP/HECTOR AP/OTHR [...] are seen. IMPRESSION: No acute osseous abnormality. Concrete Puddler: PSCB Transcribe Date/Time: Sep 12 2020 12:55P Dictated by : SHANON CARTER MD This examination was interpreted and the report reviewed and electronically signed by: SHANON CARTER MD on Sep 12 2020 12:56PM EST [id number] Normal [facility] POCT Creatinineon 06-06-2020 Creatinine [Mass/Vol] 0.8 mg/dL 0.6 - 1.4 mg/dL [facility] [facility] Work Phone: Comment on above: Performed by [facility] CLIA ID:[id number] [place] GFR/1.73 sq M predicted among blacks MDRD (S/P/Bld) [Vol rate/Area] mL/min/{1.73_m2} >60 mL/min [employer] Work Phone: GFR/1.73 sq M predicted among non-blacks MDRD (S/P/Bld) [Vol rate/Area] 78.2 mL/min/{1.73_m2} >60 [facility] [facility] Work Phone: Comment on above: KDIGO guidelines [...] renal tubular creatinine secretion. Test [facility], [address] [facility] [address] Work Phone: Brain Natriuretic Peptideon 03-16-2020 Natriuretic peptide B (Bld) [Mass/Vol] 100 pg/mL 0 - 125 pg/mL [place], [place] Test Performed by [employer] [facility], [address] [facility] [address] COVID-19, Rapidon 03-16-2020 Sodium [Moles/Vol] see below [place], [place] Comment on above: Not Detected Expected Result: Not Detected _ Isothermal nucleic acid amplification performed on the [employer] System by the [facility] Negative results do not preclude SARS-CoV-2 infection and should not be used as the sole basis for treatment or other patient management decisions. This assay was developed by [employer] and distributed under an Emergency Use Authorization (EUA) granted by the [facility] for the qualitative detection of SARS-CoV-2 nucleic acid. Provider and patient fact sheets can be found at https://www.fda.gov/media/732534/download and https://www.fda.gov/media/489133/download. Test Performed by [employer] [facility], [address] Comprehensive Metabolic Pane cory 03-16-2020 Albumin [Mass/Vol] 3.2 g/dL Low 3.5 - 5 g/dL [place], [place] ALP [Catalytic activity/Vol] 98 U/L 38 - 126 U/L [place] ALT [Catalytic activity/Vol] 18 U/L 0 - 34 U/L [place] Comment on above: The ALT test is perf ormed by an updated assay method. Please note that the reference intervals have been changed and are now sex specific. Anion gap [Moles/Vol] 6 mmol/L [place], [place] AST [Catalytic activity/Vol] 27 U/L 15 - 46 U/L [place] Bilirubin Ql (U) 0.1 mg/dL Low 0.2 - 1.3 mg/dL [place] Calcium [Mass/Vol] 8.7 mg/dL 8.4 - 10. 4 mg/dL [place] Chloride [Moles/Vol] 104 mmol/L 98 - 10 7 mmol/L [place] CO2 [Moles/Vol] 29 mmol/L 22 - 30 mmol/L [place] Creatinine [Mass/Vol] 0.85 mg/dL 0.52 - 1.25 mg/dL [place] EGFR IF NonAfrican [place] 72.8 mL/min >60 [place] Comment on above: KDIGO guidelines pro [...] MDRD (S/P/Bld) [Vol rate/Area] 84.3 mL/min/{1.73_m2} >60 [place] Glucose [Mass/Vol] 96 mg/dL 70 - 100 mg/dL [place] Interpretation and review of laboratory results Abnormal [place] Potassium [Moles/Vol] 4.1 mmol/L 3.5 - 5.1 mmol/L [place] Protein [Mass/Vol] 6.0 g/dL Low 6.3 - 8.2 g/dL [place] Sodium [Moles/Vol] 138 mmol/L 135 - 145 mmol/L [place] Urea nitrogen [Mass/Vol] 14 mg/dL 7 - 20 mg/d L [place] Test Performed by [facility], [address] [place], [place], [place] [id number] [place] [address] Hemogram (CBC) w/Auto Diffon 03-16-2020 Absolute Baso # 0.0 10*3/uL 0 - 0.2 10*3/uL [place] Absolute Neut # 5.0 10*3/uL 1.8 - 7 10*3/uL [place] Basophils/100 WBC (Bld) 0.5 % 0 - 2 % [place] Eosinophils (Bld) [#/Vol] 0.1 10*3/uL 0 - 0.5 10*3/uL [place] Eosinophils/100 WBC (Bld) 1.7 % 1 - 6 % [place] Erythrocyte distribution width (RBC) [Ratio] 21.1 % High 11.5 - 14.5 % [place] Granulocytes/100 WBC (Bld) 76.2 % 40 - 80 % [place] Hematocrit (Bld) [Volume fraction] 27.3 % Low 35 - 47 % [place] Hemoglobin (Bld) [Mass/Vol] 8.9 g/dL Low 11.7 - 16 g/dL [place] Interpretation and review of laboratory results Abnormal [place] Lymphocytes (Bld) [#/Vol] 0.6 10*3/uL Low 1 - 4.3 10*3/uL [place] Lymphocytes/100 WBC (Bld) 9.5 % Low 20 - 40 % [place] MCH (RBC) [Entitic mass] 30.6 pg 26 - 34 pg [place] MCHC (RBC) [Mass/Vol] 32.7 % 32 - 36 % [place] MCV (RBC) [Entitic vol] 93.4 fL 79 - 98 fL [place], [place] Monocytes (Bld) [#/Vol] 0.8 10*3/uL 0 - 0.8 10*3/uL [place] Monocytes/100 WBC (Bld) 12.1 % High 2 - 10 % [place] Platelet mean volume (Bld) [Entitic vol] 6.9 fL Low 7.4 - 10.4 fL [place] Platelets (Bld) [#/Vol] 235 10*3/uL 140 - 440 10*3/uL [place] RBC (Bld) [#/Vol] 2.93 10*6/uL Low 3.8 - 5.2 10*6/uL [place] WBC (Bld) [#/Vol] 6.6 10*3/uL 3.6 - 10.7 10*3/uL [place] Test [facility]formed [facility], [address] [place], [place], [place] [id number] [place] [address] Metabolic Panelon 03-16-2020 Sodium [Moles/Vol] Slight [place] RBC MORPHOLOGYon 03-16-2020 Anisocytosis Ql (Bld) Moderate [place] RBC morphology finding Nom (Bld) ABNORMAL [place] Test [facility]formed [facility], [address] [place], [place] [address] [place] Troponin x1on 03-16-2020 Troponin I.cardiac [Mass/Vol] ng/mL 0 - 0.034 ng/mL [place] Comment on above: . Test Per[facility], [address] [place], [place] [address] [place] XR CHEST PORTABLEon 03-16-20 20 Patient Name: GONZALO DELUCA Diagnostic Radiology ACCESSION EXAM DATE/TIME PROCEDURE ORDERING PROVIDER [id number] 03/16/2020 14:04 EST CR Chest Portable RODRÍGUEZ OSLIZ AMY L CPT code 65835 Reason For Exam (CR Chest Portable) Cough [...] JOHN Transcribed Date and Time: 03/16/2020 2:16 [facility] [place] Real, [facility] Incoming Radiology Results From [facility] - 03/16/2020 2:16 PM EST Patient Name: GONZALO DELUCA [facility]#: [id number] Diagnostic Radiology ACCESSION EXAM DATE/TIME PROCEDURE ORDERING PROVIDER [id number] 03/16/2020 14:04 EST CR Chest Portable RODRÍGUEZ SOLIZ AMY L CPT code 32933 Reason For Exam (CR Chest Portable) Cough [...] JOHN Transcribed Date and Time: 03/16/2020 2:16 [place] CBC Auto Differentialon 12-0 Absolute Baso # 0.0 10*3/uL 0 - 0.2 10*3/uL [place] Absolute Neut # 2.5 10*3/uL 1.8 - 7 10*3/uL [place] Basophils/100 WBC (Bld) 0.5 % 0 - 2 % [place] Eosinophils (Bld) [#/Vol] 0.2 10*3/uL 0 - 0.5 10*3/uL [place] Eosinophils/100 WBC (Bld) 6.1 % High 1 - 6 % [place] Erythrocyte distribution width (RBC) [Ratio] 16.2 % High 11.5 - 14.5 % [place] Granulocytes/100 WBC (Bld) 70.6 % 40 - 80 % [place] Hematocrit (Bld) [Volume fraction] 29.6 % Low 35 - 47 % [place] Hemoglobin (Bld) [Mass/Vol] 9.8 g/dL Low 11.7 - 16 g/dL [place] Interpretation and review of laboratory results Abnormal [place] Lymphocytes (Bld) [#/Vol] 0.5 10*3/uL Low 1 - 4.3 10*3/uL [place] Lymphocytes/100 WBC (Bld) 13.0 % Low 20 - 40 % [place] MCH (RBC) [Entitic mass] 29.6 pg 26 - 34 pg [place] MCHC (RBC) [Mass/Vol] 33.0 % 32 - 36 % [place] MCV (RBC) [Entitic vol] 89.6 fL 79 - 98 fL [place] Monocytes (Bld) [#/Vol] 0.3 10*3/uL 0 - 0.8 10*3/uL [place] Monocytes/100 WBC (Bld) 9.8 % 2 - 10 % [place] Platelet mean volume (Bld) [Entitic vol] 7.5 fL 7.4 - 10.4 fL [place] Platelets (Bld) [#/Vol] 155 10*3/uL 140 - 440 10*3/uL [place] RBC (Bld) [#/Vol] 3.30 10*6/uL Low 3.8 - 5.2 10*6/uL [place] WBC (Bld) [#/Vol] 3.5 10*3/uL Low 3.6 - 10.7 10*3/uL [place] Test Performed by [facility], [address] [place] [address] [place] Comp Metabolic Panelon 02-20 ALP [Catalytic activity/Vol] 89 U/L Normal 38-126 [facility] Comment on above: Performed By: #### C MP3, MG3, HEMDF ####[facility] [employer] [id number] [place] [address] ALT [Catalytic activity/Vol] 18 U/L Normal 0-34 [facility] Comment on above: Result Comment: The ALT test is performed by an updated assay method. Please note that the reference intervals have been changed and are now sex specific. Performed By: #### C MP3, MG3, HEMDF ####[facility] [employer] [id number] [place] [address] Calcium [Mass/Vol] 8.8 mg/dL Normal 8.4-10.4 [facility] Comment on above: Performed By: #### C MP3, MG3, HEMDF ####[facility] [place] [address] Glucose [Mass/Vol] 79 mg/dL Normal 70-100 [facility] Comment on above: Performed By: #### C MP3, MG3, HEMDF ####[facility] [place] [address] Protein [Mass/Vol] 6.0 g/dL Low 6.3-8.2 [facility] Comment on above: Performed By: #### C MP3, MG3, HEMDF ####[place] [address] [facility] [place] [address] Urea nitrogen [Mass/Vol] 11 mg/dL Normal 7-20 [facility] Comment on above: Performed By: #### C MP3, MG3, HEMDF ####[place] [address] [facility] [address] Anion gap [Moles/Vol] 5 Normal [facility] Comment on above: Performed By: #### C MP3, MG3, HEMDF ####[place] [address] [place] [address] AST [Catalytic activity/Vol] 35 U/L Normal 15-46 [facility] Comment on above: Performed By: #### C MP3, MG3, HEMDF ####[place] [address] [facility] [place] [address] Bilirubin [Mass/Vol] 0.3 mg/dL Normal 0.2-1.3 [facility] Comment on above: Performed By: #### C MP3, MG3, HEMDF ####[facility] [place] [address] CO2 [Moles/Vol] 31 mmol/L High 22-30 [facility] Comment on above: Performed By: #### C MP3, MG3, HEMDF ####[facility] [place] [address] Creatinine [Mass/Vol] 0.64 mg/dL Normal 0.52-1.25 [facility] Comment on above: Performed By: #### C MP3, MG3, HEMDF ####[place] [address] [place] [address] GFR/1.73 sq M predicted among blacks MDRD (S/P/Bld) [Vol rate/Area] mL/min/{1.73_m2} Normal >60 [facility] Comment on above: Performed By: #### C MP3, MG3, HEMDF ####[place] [address] [place] [address] GFR/1.73 sq M predicted among non-blacks MDRD (S/P/Bld) [Vol rate/Area] mL/min/{1.73_m2} Normal >60 [facility] Comment on above: Result Comment: KDIG [...] Performed By: #### C MP3, MG3, HEMDF ####[place] [address] [place], [place] Chloride [Moles/Vol] 101 mmol/L Normal 98-107 [facility] Comment on above: Performed By: #### C MP3, MG3, HEMDF ####[place] [address] [place], [place] Potassium [Moles/Vol] 4.2 mmol/L Normal 3.5-5.1 [facility] Comment on above: Performed By: #### C MP3, MG3, HEMDF ####[place] [address] [place] Sodium [Moles/Vol] 137 mmol/L Normal 135-145 [facility] Comment on above: Performed By: #### C MP3, MG3, HEMDF ####[facility] [place] Albumin [Mass/Vol] 2.2 g/dL Low 3.5-5.0 [facility] Comment on above: Performed By: #### C MP3, MG3, HEMDF ####[facility] [place], [place] Comprehensive Metabolic Pane cory 02-21-2020 Albumin [Mass/Vol] 2.2 g/dL Low 3.5 - 5 g/dL [place], [place] ALP [Catalytic activity/Vol] 89 U/L 38 - 126 U/L [place] ALT [Catalytic activity/Vol] 18 U/L 0 - 34 U/L [place] Comment on above: The ALT test is perf ormed by an updated assay method. Please note that the reference intervals have been changed and are now sex specific. Anion gap [Moles/Vol] 5 mmol/L [place] AST [Catalytic activity/Vol] 35 U/L 15 - 46 U/L [place] Bilirubin Ql (U) 0.3 mg/dL 0.2 - 1.3 mg/dL [place] Calcium [Mass/Vol] 8.8 mg/dL 8.4 - 10. 4 mg/dL [place] Chloride [Moles/Vol] 101 mmol/L 98 - 10 7 mmol/L [place] CO2 [Moles/Vol] 31 mmol/L High 22 - 30 mmol/L [place] Creatinine [Mass/Vol] 0.64 mg/dL 0.52 - 1.25 mg/dL [place] EGFR IF NonAfrican [place] >90.0 >60 mL/min [place] Comment on above: KDIGO guidelines pro [...] MDRD (S/P/Bld) [Vol rate/Area] mL/min/{1.73_m2} >60 mL/min [place] Glucose [Mass/Vol] 79 mg/dL 70 - 100 mg/dL [place] Interpretation and review of laboratory results Abnormal [place] Potassium [Moles/Vol] 4.2 mmol/L 3.5 - 5.1 mmol/L [place] Protein [Mass/Vol] 6.0 g/dL Low 6.3 - 8.2 g/dL [place] Sodium [Moles/Vol] 137 mmol/L 135 - 145 mmol/L [place] Urea nitrogen [Mass/Vol] 11 mg/dL 7 - 20 mg/d L [place] Hemogram w/ Autodiffon 02-20 Abs Baso Cnt 0.0 10*3/uL Normal 0.0-0.2 [facility] Comment on above: Performed By: #### C MP3, MG3, HEMDF #### [facility] [address] [place] [address] Abs Neutrophile Cnt 2.5 10*3/uL Normal 1.8-7.0 [facility] Comment on above: Performed By: #### C MP3, MG3, HEMDF #### [facility] [address] [place] [address] Basophils/100 WBC (Bld) 0.5 % Normal 0.0-2.0 [facility] Comment on above: Performed By: #### C MP3, MG3, HEMDF #### [place] [address] [place] Eosinophils (Bld) [#/Vol] 0.2 10*3/uL Normal 0.0-0.5 [facility] Comment on above: Performed By: #### C MP3, MG3, HEMDF #### [place] [address] [place] Eosinophils/100 WBC (Bld) 6.1 % High 1.0-6.0 [facility] Comment on above: Performed By: #### C MP3, MG3, HEMDF #### [place] [address] [place] Erythrocyte distribution width (RBC) [Ratio] 16.2 % High 11.5-14.5 [facility] Comment on above: Performed By: #### C MP3, MG3, HEMDF #### [place] [address] [place] Granulocytes/100 WBC (Bld) 70.6 % Normal 40.0-80.0 [facility] Comment on above: Performed By: #### C MP3, MG3, HEMDF #### [place] [address] [place] Hematocrit (Bld) [Volume fraction] 29.6 % Low 35.0-47.0 [facility] Comment on above: Performed By: #### C MP3, MG3, HEMDF #### [place] [address] [place] Hemoglobin (Bld) [Mass/Vol] 9.8 g/dL Low 11.7-16.0 [facility] Comment on above: Performed By: #### C MP3, MG3, HEMDF #### [place] [address] [place] Lymphocytes (Bld) [#/Vol] 0.5 10*3/uL Low 1.0-4.3 [facility] Comment on above: Performed By: #### C MP3, MG3, HEMDF #### [place] [address] [place] Lymphocytes/100 WBC (Bld) 13.0 % Low 20.0-40.0 [facility] Comment on above: Performed By: #### C MP3, MG3, HEMDF #### [place] [address] [place] MCH (RBC) [Entitic mass] 29.6 pg Normal 26.0-34.0 [facility] Comment on above: Performed By: #### C MP3, MG3, HEMDF #### [place] [address] [place] MCHC (RBC) [Mass/Vol] 33.0 % Normal 32.0-36.0 [facility] Comment on above: Performed By: #### C MP3, MG3, HEMDF #### [place] [address] [place] MCV (RBC) [Entitic vol] 89.6 fL Normal 79.0-98.0 [facility] Comment on above: Performed By: #### C MP3, MG3, HEMDF #### [place] [address] [place] Monocytes (Bld) [#/Vol] 0.3 10*3/uL Normal 0.0-0.8 [facility] Comment on above: Performed By: #### C MP3, MG3, HEMDF #### [place] [address] [place] Monocytes/100 WBC (Bld) 9.8 % Normal 2.0-10.0 [facility] Comment on above: Performed By: #### C MP3, MG3, HEMDF #### [address] Platelet mean volume (Bld) [Entitic vol] 7.5 fL Normal 7.4-10.4 [facility] Comment on above: Performed By: #### C MP3, MG3, HEMDF #### [place] [address] [place] Platelets (Bld) [#/Vol] 155 10*3/uL Normal 140-440 [facility] Comment on above: Performed By: #### C MP3, MG3, HEMDF #### [place] [address] [place] RBC (Bld) [#/Vol] 3.30 10*6/uL Low 3.80-5.20 [facility] Comment on above: Performed By: #### C MP3, MG3, HEMDF #### [place] [address] [place] WBC (Bld) [#/Vol] 3.5 10*3/uL Low 3.6-10.7 [facility] Comment on above: Performed By: #### C MP3, MG3, HEMDF #### [place] [address] [place] Magnesiumon 02-21-2020 Magnesium [Mass/Vol] 1.6 mg/dL Normal 1.6-2.3 [facility] Comment on above: Performed By: #### C MP3, MG3, HEMDF #### [place] [address] [place] Magnesium [Mass/Vol] 1.6 mg/dL 1.6 - 2 .3 mg/dL [place] Otheron 02-21-2020 Test Performed by [address] [address] [place], [place] CBC Auto Differentialon 01-19 Absolute Baso # 0.0 10*3/uL 0 - 0.2 10*3/uL [place] Absolute Neut # 5.3 10*3/uL 1.8 - 7 10*3/uL [place] Basophils/100 WBC (Bld) 0.4 % 0 - 2 % [place] Eosinophils (Bld) [#/Vol] 0.1 10*3/uL 0 - 0.5 10*3/uL [place] Eosinophils/100 WBC (Bld) 1.0 % 1 - 6 % [place] Erythrocyte distribution width (RBC) [Ratio] 15.0 % High 11.5 - 14.5 % [place] Granulocytes/100 WBC (Bld) 84.0 % High 40 - 80 % [place] Hematocrit (Bld) [Volume fraction] 34.1 % Low 35 - 47 % [place] Hemoglobin (Bld) [Mass/Vol] 11.3 g/dL Low 11.7 - 16 g/dL [place] Lymphocytes (Bld) [#/Vol] 0.4 10*3/uL Low 1 - 4.3 10*3/uL [place] Lymphocytes/100 WBC (Bld) 5.7 % Low 20 - 40 % [place] MCH (RBC) [Entitic mass] 29.7 pg 26 - 34 pg [place] MCHC (RBC) [Mass/Vol] 33.0 % 32 - 36 % [place] MCV (RBC) [Entitic vol] 89.8 fL 79 - 98 fL [place] Monocytes (Bld) [#/Vol] 0.6 10*3/uL 0 - 0.8 10*3/uL [place] Monocytes/100 WBC (Bld) 8.9 % 2 - 10 % [place] Platelet mean volume (Bld) [Entitic vol] 6.7 fL Low 7.4 - 10.4 fL [place] Platelets (Bld) [#/Vol] 315 10*3/uL 140 - 440 10*3/uL [place] RBC (Bld) [#/Vol] 3.79 10*6/uL Low 3.8 - 5.2 10*6/uL [place] WBC (Bld) [#/Vol] 6.3 10*3/uL 3.6 - 10.7 10*3/uL [place] Comprehensive Metabolic Pane cory 02-07-2020 Albumin [Mass/Vol] 3.5 g/dL 3.5 - 5 g/dL [place] ALP [Catalytic activity/Vol] 91 U/L 38 - 126 U/L [place] ALT [Catalytic activity/Vol] 21 U/L 0 - 34 U/L [place] Comment on above: The ALT test is perf ormed by an updated assay method. Please note that the reference intervals have been changed and are now sex specific. Anion gap [Moles/Vol] 4 mmol/L [place] AST [Catalytic activity/Vol] 24 U/L 15 - 46 U/L [place] Bilirubin Ql (U) 0.5 mg/dL 0.2 - 1.3 mg/dL [place] Calcium [Mass/Vol] 9.1 mg/dL 8.4 - 10. 4 mg/dL [place] Chloride [Moles/Vol] 101 mmol/L 98 - 10 7 mmol/L [place] CO2 [Moles/Vol] 33 mmol/L High 22 - 30 mmol/L [place] Creatinine [Mass/Vol] 0.66 mg/dL 0.52 - 1.25 mg/dL [place] EGFR IF NonAfrican [place] >90.0 >60 mL/min [place] Comment on above: KDIGO guidelines pro [...] MDRD (S/P/Bld) [Vol rate/Area] mL/min/{1.73_m2} >60 mL/min [place] Glucose [Mass/Vol] 97 mg/dL 70 - 100 mg/dL [place] Potassium [Moles/Vol] 3.9 mmol/L 3.5 - 5.1 mmol/L [place] Protein [Mass/Vol] 6.1 g/dL Low 6.3 - 8.2 g/dL [place] Sodium [Moles/Vol] 139 mmol/L 135 - 145 mmol/L [place] Urea nitrogen [Mass/Vol] 19 mg/dL 7 - 20 mg/d L [place] Magnesiumon 02-07-2020 Magnesium [Mass/Vol] 1.5 mg/dL Low 1.6 - 2 .3 mg/dL [place] Otheron 02-07-2020 Interpretation and review of laboratory results Abnormal [place] Test Performed by [facility], [address] [place] [address] [place], [place] CBC Auto Differentialon 01-19 Absolute Baso # 0.0 10*3/uL 0 - 0.2 10*3/uL [place] Absolute Neut # 7.6 10*3/uL High 1.8 - 7 10*3/uL [place] Basophils/100 WBC (Bld) 0.1 % 0 - 2 % [place] Eosinophils (Bld) [#/Vol] 0.0 10*3/uL 0 - 0.5 10*3/uL [place] Eosinophils/100 WBC (Bld) 0.0 % Low 1 - 6 % [place] Erythrocyte distribution width (RBC) [Ratio] 14.3 % 11.5 - 14.5 % [place] Granulocytes/100 WBC (Bld) 94.4 % High 40 - 80 % [place] Hematocrit (Bld) [Volume fraction] 35.2 % 35 - 47 % [place] Hemoglobin (Bld) [Mass/Vol] 11.3 g/dL Low 11.7 - 16 g/dL [place] Interpretation and review of laboratory results Abnormal [place] Lymphocytes (Bld) [#/Vol] 0.2 10*3/uL Low 1 - 4.3 10*3/uL [place] Lymphocytes/100 WBC (Bld) 2.8 % Low 20 - 40 % [place] MCH (RBC) [Entitic mass] 29.2 pg 26 - 34 pg [place] MCHC (RBC) [Mass/Vol] 32.2 % 32 - 36 % [place] MCV (RBC) [Entitic vol] 90.7 fL 79 - 98 fL [place] Monocytes (Bld) [#/Vol] 0.2 10*3/uL 0 - 0.8 10*3/uL [place] Monocytes/100 WBC (Bld) 2.7 % 2 - 10 % [place] Platelet mean volume (Bld) [Entitic vol] 8.1 fL 7.4 - 10.4 fL [place] Platelets (Bld) [#/Vol] 252 10*3/uL 140 - 440 10*3/uL [place] RBC (Bld) [#/Vol] 3.88 10*6/uL 3.8 - 5.2 10*6/uL [place] WBC (Bld) [#/Vol] 8.1 10*3/uL 3.6 - 10.7 10*3/uL [place] Test Performed by [facility], [address] [place] [id number] [place] [address] Comp Metabolic Panelon 01-30 ALP [Catalytic activity/Vol] 112 U/L Normal 38-126 [facility] Comment on above: Performed By: #### C MP3, MG3, HEMDF #### [place] [address] [place] ALT [Catalytic activity/Vol] 20 U/L Normal 0-34 [facility] Comment on above: Result Comment: The ALT test is performed by an updated assay method. Please note that the reference intervals have been changed and are now sex specific. Performed By: #### C MP3, MG3, HEMDF #### [place] [address] [place] Calcium [Mass/Vol] 9.3 mg/dL Normal 8.4-10.4 [facility] Comment on above: Performed By: #### C MP3, MG3, HEMDF #### [facility] [address] [place], [place] Glucose [Mass/Vol] 119 mg/dL High 70-100 [facility] Comment on above: Performed By: #### C MP3, MG3, HEMDF #### [facility] [address] [place], [place] Urea nitrogen [Mass/Vol] 16 mg/dL Normal 7-20 [facility] Comment on above: Performed By: #### C MP3, MG3, HEMDF #### [place] [address] [place], [place] Anion gap [Moles/Vol] 9 Normal [facility] Comment on above: Performed By: #### C MP3, MG3, HEMDF #### [place] [address] [address] [place] AST [Catalytic activity/Vol] 26 U/L Normal 15-46 [facility] Comment on above: Performed By: #### C MP3, MG3, HEMDF #### [place] [address] [place] Bilirubin [Mass/Vol] 0.2 mg/dL Normal 0.2-1.3 [facility] Comment on above: Performed By: #### C MP3, MG3, HEMDF #### [facility] [address] [place], [place] CO2 [Moles/Vol] 28 mmol/L Normal 22-30 [facility] Comment on above: Performed By: #### C MP3, MG3, HEMDF #### [place] [address] [place] Creatinine [Mass/Vol] 0.54 mg/dL Normal 0.52-1.25 [facility] Comment on above: Performed By: #### C MP3, MG3, HEMDF #### [facility] [address] [place], [place] GFR/1.73 sq M predicted among blacks MDRD (S/P/Bld) [Vol rate/Area] mL/min/{1.73_m2} Normal >60 [facility] Comment on above: Performed By: #### C MP3, MG3, HEMDF #### [facility] [address] [place] [address] GFR/1.73 sq M predicted among non-blacks MDRD (S/P/Bld) [Vol rate/Area] mL/min/{1.73_m2} Normal >60 [facility] Comment on above: Result Comment: KDIG [...] By: #### C MP3, MG3, HEMDF #### [facility] [address] [place] [address] Protein [Mass/Vol] 6.9 g/dL Normal 6.3-8.2 [facility] Comment on above: Performed By: #### C MP3, MG3, HEMDF #### [facility] [address] [place] [address] Chloride [Moles/Vol] 102 mmol/L Normal 98-107 [facility] Comment on above: Performed By: #### C MP3, MG3, HEMDF #### [place] [address] [place] [address] Potassium [Moles/Vol] 4.5 mmol/L Normal 3.5-5.1 [facility] Comment on above: Performed By: #### C MP3, MG3, HEMDF #### [facility] [address] [place] [address] Sodium [Moles/Vol] 139 mmol/L Normal 135-145 [facility] Comment on above: Performed By: #### C MP3, MG3, HEMDF #### [facility] [address] [place] [address] Albumin [Mass/Vol] 3.8 g/dL Normal 3.5-5.0 [facility] Comment on above: Performed By: #### C MP3, MG3, HEMDF #### [facility] [address] [place] [address] Comprehensive Metabolic Pane cory 01-31-2020 Albumin [Mass/Vol] 3.8 g/dL 3.5 - 5 g/dL [place] ALP [Catalytic activity/Vol] 112 U/L 38 - 126 U/L [place] ALT [Catalytic activity/Vol] 20 U/L 0 - 34 U/L [place] Comment on above: The ALT test is perf ormed by an updated assay method. Please note that the reference intervals have been changed and are now sex specific. Anion gap [Moles/Vol] 9 mmol/L [place] AST [Catalytic activity/Vol] 26 U/L 15 - 46 U/L [place] Bilirubin Ql (U) 0.2 mg/dL 0.2 - 1.3 mg/dL [place] Calcium [Mass/Vol] 9.3 mg/dL 8.4 - 10. 4 mg/dL [place] Chloride [Moles/Vol] 102 mmol/L 98 - 10 7 mmol/L [place] CO2 [Moles/Vol] 28 mmol/L 22 - 30 mmol/L [place] Creatinine [Mass/Vol] 0.54 mg/dL 0.52 - 1.25 mg/dL [place] EGFR IF NonAfrican [place] >90.0 >60 mL/min [place] Comment on above: KDIGO guidelines pro [...] MDRD (S/P/Bld) [Vol rate/Area] mL/min/{1.73_m2} >60 mL/min [place] Glucose [Mass/Vol] 119 mg/dL High 70 - 100 mg/dL [place] Interpretation and review of laboratory results Abnormal [place] Potassium [Moles/Vol] 4.5 mmol/L 3.5 - 5.1 mmol/L [place] Protein [Mass/Vol] 6.9 g/dL 6.3 - 8.2 g/dL [place] Sodium [Moles/Vol] 139 mmol/L 135 - 145 mmol/L [place] Urea nitrogen [Mass/Vol] 16 mg/dL 7 - 20 mg/d L [place] Hemogram w/ Autodiffon 01-30 Abs Baso Cnt 0.0 10*3/uL Normal 0.0-0.2 [facility] Comment on above: Performed By: #### C MP3, MG3, HEMDF #### [facility] [address] Abs Neutrophile Cnt 7.6 10*3/uL High 1.8-7.0 [facility] Comment on above: Performed By: #### C MP3, MG3, HEMDF #### [facility] [address] [address] Basophils/100 WBC (Bld) 0.1 % Normal 0.0-2.0 [facility] Comment on above: Performed By: #### C MP3, MG3, HEMDF #### [place] [address] [address] [place] Eosinophils (Bld) [#/Vol] 0.0 10*3/uL Normal 0.0-0.5 [facility] Comment on above: Performed By: #### C MP3, MG3, HEMDF #### [place] [address] [address] [place] Eosinophils/100 WBC (Bld) 0.0 % Low 1.0-6.0 [facility] Comment on above: Performed By: #### C MP3, MG3, HEMDF #### [place] [address] [place] Erythrocyte distribution width (RBC) [Ratio] 14.3 % Normal 11.5-14.5 [facility] Comment on above: Performed By: #### C MP3, MG3, HEMDF #### [place] [address] [address] [place] Granulocytes/100 WBC (Bld) 94.4 % High 40.0-80.0 [facility] Comment on above: Performed By: #### C MP3, MG3, HEMDF #### [place] [address] [address] [place] Hematocrit (Bld) [Volume fraction] 35.2 % Normal 35.0-47.0 [facility] Comment on above: Performed By: #### C MP3, MG3, HEMDF #### [place] [address] [address] [place] Hemoglobin (Bld) [Mass/Vol] 11.3 g/dL Low 11.7-16.0 [facility] Comment on above: Performed By: #### C MP3, MG3, HEMDF #### [place] [address] [address] [place] Lymphocytes (Bld) [#/Vol] 0.2 10*3/uL Low 1.0-4.3 [facility] Comment on above: Performed By: #### C MP3, MG3, HEMDF #### [place] [address] [place] Lymphocytes/100 WBC (Bld) 2.8 % Low 20.0-40.0 [facility] Comment on above: Performed By: #### C MP3, MG3, HEMDF #### [place] [address] [place] MCH (RBC) [Entitic mass] 29.2 pg Normal 26.0-34.0 [facility] Comment on above: Performed By: #### C MP3, MG3, HEMDF #### [address] MCHC (RBC) [Mass/Vol] 32.2 % Normal 32.0-36.0 [facility] Comment on above: Performed By: #### C MP3, MG3, HEMDF #### [address] MCV (RBC) [Entitic vol] 90.7 fL Normal 79.0-98.0 [facility] Comment on above: Performed By: #### C MP3, MG3, HEMDF #### [place] [address] [place] Monocytes (Bld) [#/Vol] 0.2 10*3/uL Normal 0.0-0.8 [facility] Comment on above: Performed By: #### C MP3, MG3, HEMDF #### [address] Monocytes/100 WBC (Bld) 2.7 % Normal 2.0-10.0 [facility] Comment on above: Performed By: #### C MP3, MG3, HEMDF #### [address] Platelet mean volume (Bld) [Entitic vol] 8.1 fL Normal 7.4-10.4 [facility] Comment on above: Performed By: #### C MP3, MG3, HEMDF #### [facility] [address] [place], [place] Platelets (Bld) [#/Vol] 252 10*3/uL Normal 140-440 [facility] Comment on above: Performed By: #### C MP3, MG3, HEMDF #### [place] [address] [address] [place] RBC (Bld) [#/Vol] 3.88 10*6/uL Normal 3.80-5.20 [facility] Comment on above: Performed By: #### C MP3, MG3, HEMDF #### [place] [address] [address] [place] WBC (Bld) [#/Vol] 8.1 10*3/uL Normal 3.6-10.7 [facility] Comment on above: Performed By: #### C MP3, MG3, HEMDF #### [place] [address] [address] [place] Magnesiumon 01-31-2020 Magnesium [Mass/Vol] 1.8 mg/dL Normal 1.6-2.3 [facility] Comment on above: Performed By: #### C MP3, MG3, HEMDF #### [place] [address] [address] [place] Magnesium [Mass/Vol] 1.8 mg/dL 1.6 - 2 .3 mg/dL [place] Otheron 01-31-2020 Test Performed by [place] [address] [place] [address] [place] CBC Auto Differentialon Absolute Baso # 0.0 10*3/uL 0 - 0.2 10*3/uL [place] Absolute Neut # 5.1 10*3/uL 1.8 - 7 10*3/uL [place] Basophils/100 WBC (Bld) 0.5 % 0 - 2 % [place] Eosinophils (Bld) [#/Vol] 0.5 10*3/uL 0 - 0.5 10*3/uL [place] Eosinophils/100 WBC (Bld) 6.7 % High 1 - 6 % [place] Erythrocyte distribution width (RBC) [Ratio] 14.5 % 11.5 - 14.5 % [place] Granulocytes/100 WBC (Bld) 73.3 % 40 - 80 % [place] Hematocrit (Bld) [Volume fraction] 35.8 % 35 - 47 % [place] Hemoglobin (Bld) [Mass/Vol] 11.5 g/dL Low 11.7 - 16 g/dL [place] Interpretation and review of laboratory results Abnormal [place] Lymphocytes (Bld) [#/Vol] 0.8 10*3/uL Low 1 - 4.3 10*3/uL [place] Lymphocytes/100 WBC (Bld) 12.2 % Low 20 - 40 % [place] MCH (RBC) [Entitic mass] 29.3 pg 26 - 34 pg [place] MCHC (RBC) [Mass/Vol] 32.2 % 32 - 36 % [place] MCV (RBC) [Entitic vol] 90.9 fL 79 - 98 fL [place] Monocytes (Bld) [#/Vol] 0.5 10*3/uL 0 - 0.8 10*3/uL [place] Monocytes/100 WBC (Bld) 7.3 % 2 - 10 % [place] Platelet mean volume (Bld) [Entitic vol] 8.1 fL 7.4 - 10.4 fL [place] Platelets (Bld) [#/Vol] 219 10*3/uL 140 - 440 10*3/uL [place] RBC (Bld) [#/Vol] 3.94 10*6/uL 3.8 - 5.2 10*6/uL [place] WBC (Bld) [#/Vol] 6.9 10*3/uL 3.6 - 10.7 10*3/uL [place] [facility], [address], [place], [place] [id number] [place] [address] Comprehensive Metabolic Pane cory 11-05-2020 Albumin [Mass/Vol] 3.9 g/dL 3.5 - 5 g/dL [place], [place] ALP [Catalytic activity/Vol] 97 U/L 38 - 126 U/L [place] ALT [Catalytic activity/Vol] 22 U/L 0 - 34 U/L [place] Comment on above: The ALT test is perf ormed by an updated assay method. Please note that the reference intervals have been changed and are now sex specific. Anion gap [Moles/Vol] 7 mmol/L [place] AST [Catalytic activity/Vol] 27 U/L 15 - 46 U/L [place] Bilirubin Ql (U) 0.4 mg/dL 0.2 - 1.3 mg/dL [place] Calcium [Mass/Vol] 9.4 mg/dL 8.4 - 10. 4 mg/dL [place] Chloride [Moles/Vol] 102 mmol/L 98 - 10 7 mmol/L [place] CO2 [Moles/Vol] 31 mmol/L High 22 - 30 mmol/L [place] Creatinine [Mass/Vol] 0.73 mg/dL 0.52 - 1.25 mg/dL [place] EGFR IF NonAfrican [place] 87.5 mL/min >60 [place] Comment on above: KDIGO guidelines pro [...] MDRD (S/P/Bld) [Vol rate/Area] mL/min/{1.73_m2} >60 mL/min [place] Glucose [Mass/Vol] 106 mg/dL High 70 - 100 mg/dL [place] Interpretation and review of laboratory results Abnormal [place] Potassium [Moles/Vol] 4.3 mmol/L 3.5 - 5.1 mmol/L [place] Protein [Mass/Vol] 6.8 g/dL 6.3 - 8.2 g/dL [place] Sodium [Moles/Vol] 140 mmol/L 135 - 145 mmol/L [place] Urea nitrogen [Mass/Vol] 20 mg/dL 7 - 20 mg/d L [place] Magnesiumon 01-24-2020 Magnesium [Mass/Vol] 2.0 mg/dL 1.6 - 2 .3 mg/dL [place] Otheron 01-24-2020 Test Performed by [facility], [address] [place] [id number] [place] [address] CBC Auto Differentialon -2 Absolute Baso # 0.1 10*3/uL 0 - 0.2 10*3/uL [place] Absolute Neut # 5.5 10*3/uL 1.8 - 7 10*3/uL [place] Basophils/100 WBC (Bld) 1.0 % 0 - 2 % [place] Eosinophils (Bld) [#/Vol] 1.2 10*3/uL High 0 - 0.5 10*3/uL [place] Eosinophils/100 WBC (Bld) 13.8 % High 1 - 6 % [place] Erythrocyte distribution width (RBC) [Ratio] 14.0 % 11.5 - 14.5 % [place] Granulocytes/100 WBC (Bld) 63.2 % 40 - 80 % [place] Hematocrit (Bld) [Volume fraction] 37.1 % 35 - 47 % [place] Hemoglobin (Bld) [Mass/Vol] 12.4 g/dL 11.7 - 16 g/dL [place] Interpretation and review of laboratory results Abnormal [place] Lymphocytes (Bld) [#/Vol] 1.3 10*3/uL 1 - 4.3 10*3/uL [place] Lymphocytes/100 WBC (Bld) 15.1 % Low 20 - 40 % [place] MCH (RBC) [Entitic mass] 30.2 pg 26 - 34 pg [place] MCHC (RBC) [Mass/Vol] 33.5 % 32 - 36 % [place] MCV (RBC) [Entitic vol] 90.0 fL 79 - 98 fL [place] Monocytes (Bld) [#/Vol] 0.6 10*3/uL 0 - 0.8 10*3/uL [place] Monocytes/100 WBC (Bld) 6.9 % 2 - 10 % [place] Platelet mean volume (Bld) [Entitic vol] 8.1 fL 7.4 - 10.4 fL [place] Platelets (Bld) [#/Vol] 224 10*3/uL 140 - 440 10*3/uL [place] RBC (Bld) [#/Vol] 4.12 10*6/uL 3.8 - 5.2 10*6/uL [place] WBC (Bld) [#/Vol] 8.7 10*3/uL 3.6 - 10.7 10*3/uL [place] Test Performed by [facility], [address] [place], [place] [address] [place] Comprehensive Metabolic Pane cory 01-17-2020 Albumin [Mass/Vol] 3.8 g/dL 3.5 - 5 g/dL [place] ALP [Catalytic activity/Vol] 99 U/L 38 - 126 U/L [place] ALT [Catalytic activity/Vol] 17 U/L 0 - 34 U/L [place] Comment on above: The ALT test is perf ormed by an updated assay method. Please note that the reference intervals have been changed and are now sex specific. Anion gap [Moles/Vol] 7 mmol/L [place] AST [Catalytic activity/Vol] 29 U/L 15 - 46 U/L [place] Bilirubin Ql (U) 0.3 mg/dL 0.2 - 1.3 mg/dL [place] Calcium [Mass/Vol] 8.7 mg/dL 8.4 - 10. 4 mg/dL [place] Chloride [Moles/Vol] 102 mmol/L 98 - 10 7 mmol/L [place] CO2 [Moles/Vol] 33 mmol/L High 22 - 30 mmol/L [place] Creatinine [Mass/Vol] 0.75 mg/dL 0.52 - 1.25 mg/dL [place] EGFR IF NonAfrican Ecuadorean 84.7 mL/min >60 [place] Comment on above: KDIGO guidelines pro [...] MDRD (S/P/Bld) [Vol rate/Area] mL/min/{1.73_m2} >60 mL/min [place] Glucose [Mass/Vol] 93 mg/dL 70 - 100 mg/dL [place] Interpretation and review of laboratory results Abnormal [place] Potassium [Moles/Vol] 2.8 mmol/L Low 3.5 - 5.1 mmol/L [facility] [place], [place] Protein [Mass/Vol] 6.6 g/dL 6.3 - 8.2 g/dL [place] Sodium [Moles/Vol] 142 mmol/L 135 - 145 mmol/L [place] Urea nitrogen [Mass/Vol] 9 mg/dL 7 - 20 mg/d L [place] Magnesiumon 01-17-2020 Magnesium [Mass/Vol] 1.9 mg/dL 1.6 - 2 .3 mg/dL [place] Otheron 01-17-2020 Test Performed by [facility], [address] [place], [place], [place] [id number] [place] [address] CT Nonbill Guide Rad Therapy on 12-26-2019 CT Nonbill Guide Rad Therapy Patient Name: GONZALO DELUCA CT Exam Date/Time 12/26/2019 11:38:[address] Nonbill Guide Rad Therapy Ordering Physician MD WU, BURKE E Accession Number [id number] Reason For Exam Endometriod Ca Report CT of the abdomen and pelvis without intravenous contrast, 12/26/2019. Reason for examination: Endometrial cancer. Patient for radiation therapy. COMPARISON: October 27, 2019. TECHNIQUE: Large yghbr-xn-msqx 3 mm axial images were obtained through [...] Transcribed Date and Time: 12/26/2019 3:50 Normal [facility] Otheron 12-26-2019 Patient Name: GONZALO DELUCA ---CT--- Exam Date/Time 12/26/2019 11:38:[address] Nonbill Guide Rad Therapy Ordering Physician MD WU, BURKE E Accession Number [id number] Reason For Exam Endometriod Ca Report CT of the abdomen and pelvis without intravenous contrast, 12/26/2019. Reason for examination: Endometrial cancer. Patient for radiation therapy. COMPARISON: October 27, 2019. TECHNIQUE: Large kxxtl-bl-ukud 3 mm axial images were obtained through [...] Dictated: 12/26/2019 3:50 pm Dictating Physician: MD JACOBY, BRANDY King Signed Date and Time: 12/26/2019 3:54 pm Signed by: MD DOZIER JOE M Transcribed Date and Time: 12/26/2019 3:50 [facility] [place], [place] Real, [facility] Incoming Radiology Results From [facility] - 12/26/2019 3:55 PM EDT Patient Name: GONZALO DELUCA ---CT--- Exam Date/Time 12/26/2019 11:38:[address] Nonbill Guide Rad Therapy Ordering Physician MD WU, BURKE E Accession Number [id number] Reason For Exam Endometriod Ca Report CT of the abdomen and pelvis without intravenous contrast, 12/26/2019. Reason for examination: Endometrial cancer. Patient for radiation therapy. COMPARISON: October 27, 2019. TECHNIQUE: Large yrymj-th-qfzj 3 mm axial images were obtained through [...] M Transcribed Date and Time: 12/26/2019 3:50 [facility] [place] XA SPECIAL ANGIOGRAPHY PROCE Omi 12-19-2019 Patient Name: GONZALO DELUCA ---Special Procedures--- Exam Date/Time 12/19/2019 14:31:06 EDT Exam XA Special Angiography Procedure Ordering Physician ZIYAD MENENDEZ Accession Number [id number] Reason For Exam Mediport placement Report LEFT [...] MALAY Transcribed Date and Time: 12/19/2019 2:32 [facility] [place] Real, [facility] Incoming Radiology Results From [facility] - 12/19/2019 2:33 PM EDT Patient Name: GONZALO DELUCA ---Special Procedures--- Exam Date/Time 12/19/2019 14:31:06 EDT Exam XA Special Angiography Procedure Ordering Physician MENENDEZ ZIYAD Accession Number [id number] Reason For Exam Mediport placement Report LEFT [...] MALAY Transcribed Date and Time: 12/19/2019 2:32 [facility] [employer] XR CHEST PORTABLEon 12-19-19 Patient Name: GONZALO DELUCA ---Diagnostic Radiology--- Exam Date/Time 12/19/2019 14:50:00 EDT Exam CR Chest Portable Ordering Physician MD GLADIS, SANTOS Accession Number [id number] CPT4 Codes 29706 () Reason For Exam Med Port placement She is in ACS room 12. She can go home after Dr. Gladis rocha's the XRay. Please contact him at [phone] when it is available. Thanks Report CLINICAL [...] JEFFREY Transcribed Date and Time: 12/19/2019 3:06 [place] Real, [facility] Incoming Radiology Results From [facility] - 12/19/2019 3:06 PM EDT Patient Name: GONZALO DELUCA ---Diagnostic Radiology--- Exam Date/Time 12/19/2019 14:50:00 EDT Exam CR Chest Portable Ordering Physician MD GLADIS, SANTOS Accession Number [id number] CPT4 Codes 03470 () Reason For Exam Med Port placement She is in ACS room 12. She can go home after Dr. Gladis rocha's the XRay. Please contact him at [phone] when it is available. Thanks Report CLINICAL [...] JEFFREY Transcribed Date and Time: 12/19/2019 3:06 [place] Basic Metabolic Panel w/ Ref familia to MGon 11-24-2019 Anion gap [Moles/Vol] 4 mmol/L [place] Calcium [Mass/Vol] 8.3 mg/dL Low 8.4 - 10. 4 mg/dL [place] Chloride [Moles/Vol] 102 mmol/L 98 - 10 7 mmol/L [place] CO2 [Moles/Vol] 27 mmol/L 22 - 30 mmol/L [place] Creatinine [Mass/Vol] 0.52 mg/dL 0.52 - 1.25 mg/dL [place] EGFR IF NonAfrican Ecuadorean >90.0 >60 mL/min [place] Comment on above: KDIGO guidelines pro [...] MDRD (S/P/Bld) [Vol rate/Area] mL/min/{1.73_m2} >60 mL/min [place] Glucose [Mass/Vol] 84 mg/dL 70 - 100 mg/dL [place] Interpretation and review of laboratory results Abnormal [place] Potassium [Moles/Vol] 3.8 mmol/L 3.5 - 5.1 mmol/L [place] Sodium [Moles/Vol] 133 mmol/L Low 135 - 145 mmol/L [place] Urea nitrogen [Mass/Vol] 8 mg/dL 7 - 20 mg/d L [place] Test Performed by [facility], [address], [place], [place] [address] [place] CBC Auto Differentialon -2019 Absolute Baso # 0.0 10*3/uL 0 - 0.2 10*3/uL [place] Absolute Neut # 5.9 10*3/uL 1.8 - 7 10*3/uL [place] Basophils/100 WBC (Bld) 0.5 % 0 - 2 % [place] Eosinophils (Bld) [#/Vol] 0.2 10*3/uL 0 - 0.5 10*3/uL [place] Eosinophils/100 WBC (Bld) 2.6 % 1 - 6 % [place] Erythrocyte distribution width (RBC) [Ratio] 13.8 % 11.5 - 14.5 % [place] Granulocytes/100 WBC (Bld) 78.0 % 40 - 80 % [place] Hematocrit (Bld) [Volume fraction] 31.1 % Low 35 - 47 % [place] Hemoglobin (Bld) [Mass/Vol] 10.0 g/dL Low 11.7 - 16 g/dL [place] Interpretation and review of laboratory results Abnormal [place] Lymphocytes (Bld) [#/Vol] 0.9 10*3/uL Low 1 - 4.3 10*3/uL [place] Lymphocytes/100 WBC (Bld) 12.2 % Low 20 - 40 % [place] MCH (RBC) [Entitic mass] 30.5 pg 26 - 34 pg [place] MCHC (RBC) [Mass/Vol] 32.3 % 32 - 36 % [facility] [Entitic vol] 94.5 fL 79 - 98 fL [facility] ONEL Monocytes (Bld) [#/Vol] 0.5 10*3/uL 0 - 0.8 10*3/uL [place] Monocytes/100 WBC (Bld) 6.7 % 2 - 10 % [facility] ONEL Platelet mean volume (Bld) [Entitic vol] 6.7 fL Low 7.4 - 10.4 fL [place] Platelets (Bld) [#/Vol] 378 10*3/uL 140 - 440 10*3/uL [place] RBC (Bld) [#/Vol] 3.29 10*6/uL Low 3.8 - 5.2 10*6/uL [place] WBC (Bld) [#/Vol] 7.6 10*3/uL 3.6 - 10.7 10*3/uL [place] Test Performed by [facility], [address], [place], [place] [address] [place] VL DUP CAROTID BILATERALon 0 11-24-2019 Real, [facility] Cardiology Results From Jessika/Anny - 11/24/2019 9:57 AM EDT [facility] ----- Carotid Duplex Report Ordering Physician: Aparna Walter Garage Attendant: Alexa De León Interpreting Physician: Austyn Dee [...] supine position. Images were obtained using a [employer] E9 vascular ultrasound machine. ----- Findings [...] signed by Austyn Dee MD 11/24/2019 09:57 [facility] [place], [place] [facility] ----- Carotid Duplex Report Ordering Physician: Aparna [place] Garage Attendant: Alexa De León Interpreting Physician: Austyn Dee [...] supine position. Images were obtained using a [employer] E9 vascular ultrasound machine. ----- Findings [...] signed by Austyn Dee MD 11/24/2019 09:57 [facility] Basic Metabolic Panel w/ Ref familia to MGon 11-23-2019 Anion gap [Moles/Vol] 3 mmol/L [facility], [place] Calcium [Mass/Vol] 8.6 mg/dL 8.4 - 10. 4 mg/dL [facility] [place] Chloride [Moles/Vol] 101 mmol/L 98 - 10 7 mmol/L [place] CO2 [Moles/Vol] 31 mmol/L High 22 - 30 mmol/L [place] Creatinine [Mass/Vol] 0.55 mg/dL 0.52 - 1.25 mg/dL [place] EGFR IF NonAfrican Ecuadorean >90.0 >60 mL/min [place] Comment on above: KDIGO guidelines pro [...] MDRD (S/P/Bld) [Vol rate/Area] mL/min/{1.73_m2} >60 mL/min [place] Glucose [Mass/Vol] 87 mg/dL 70 - 100 mg/dL [place] Interpretation and review of laboratory results Abnormal [place] Potassium [Moles/Vol] 4.0 mmol/L 3.5 - 5.1 mmol/L [place] Sodium [Moles/Vol] 136 mmol/L 135 - 145 mmol/L [place] Urea nitrogen [Mass/Vol] 12 mg/dL 7 - 20 mg/d L [place] Test [facility], [address], [place], [place] [address] [place] CBC Auto Differentialon 09-0 Absolute Baso # 0.0 10*3/uL 0 - 0.2 10*3/uL [place] Absolute Neut # 5.3 10*3/uL 1.8 - 7 10*3/uL [place] Basophils/100 WBC (Bld) 0.6 % 0 - 2 % [place] Eosinophils (Bld) [#/Vol] 0.3 10*3/uL 0 - 0.5 10*3/uL [place] Eosinophils/100 WBC (Bld) 3.6 % 1 - 6 % [place] Erythrocyte distribution width (RBC) [Ratio] 13.7 % 11.5 - 14.5 % [place] Granulocytes/100 WBC (Bld) 73.0 % 40 - 80 % [place] Hematocrit (Bld) [Volume fraction] 30.5 % Low 35 - 47 % [place] Hemoglobin (Bld) [Mass/Vol] 9.9 g/dL Low 11.7 - 16 g/dL [place] Interpretation and review of laboratory results Abnormal [place] Lymphocytes (Bld) [#/Vol] 1.1 10*3/uL 1 - 4.3 10*3/uL [place] Lymphocytes/100 WBC (Bld) 14.8 % Low 20 - 40 % [place] MCH (RBC) [Entitic mass] 30.5 pg 26 - 34 pg [place] MCHC (RBC) [Mass/Vol] 32.3 % 32 - 36 % [place] MCV (RBC) [Entitic vol] 94.3 fL 79 - 98 fL [place] Monocytes (Bld) [#/Vol] 0.6 10*3/uL 0 - 0.8 10*3/uL [place] Monocytes/100 WBC (Bld) 8.0 % 2 - 10 % [place] Platelet mean volume (Bld) [Entitic vol] 6.6 fL Low 7.4 - 10.4 fL [place] Platelets (Bld) [#/Vol] 366 10*3/uL 140 - 440 10*3/uL [place] RBC (Bld) [#/Vol] 3.24 10*6/uL Low 3.8 - 5.2 10*6/uL [place] WBC (Bld) [#/Vol] 7.3 10*3/uL 3.6 - 10.7 10*3/uL [place] Test Performed by [facility], [address], [place], [place] [address] [facility], ONEL ECHO Complete 2D W Doppler W Coloron 11-23-2019 TRANSTHORACIC ECHOCARDIOGRAM PATIENT: Gonzalo Deluca STUDY DATE: 11/23/2019 : 1955 AGE: 64 HT/WT: 165.1 cm (65 70.8 kg in) (155.7 lb) GENDER: F BP: 124 / 79 LOCATION: [facility] PATIENT Inpatient [facility] STATUS: *ORDERING PHYSICIAN: * Lauren Serna *RN: * Alea Gomez *READING PHYSICIAN: Haritha MgLEAD ATHLETE: Haritha Vital MD RD, AE ----- INDICATIONS: Right [...] Srini Vital MD 11/23/2019 11:59 Prior Signatures: [facility] Incoming Cardiology [facility] - 11/23/2019 11:59 AM EDT TRANSTHORACIC ECHOCARDIOGRAM PATIENT: Gonzalo Deluca STUDY DATE: 11/23/2019 : 1955 AGE: 64 HT/WT: 165.1 cm (65 70.8 kg in) (155.7 lb) GENDER: F BP: 124 / 79 LOCATION: [facility] PATIENT Inpatient [facility] STATUS: *ORDERING PHYSICIAN: * Lauren Serna *RN: * Alea Gomez *READING PHYSICIAN: * Srini *LEAD ATHLETE: * Jany Vital MD RDCS, AE ----- [...] Srini Vital MD 11/23/2019 11:59 Prior Signatures: [place] CBCon 11-22-2019 Erythrocyte distribution width (RBC) [Ratio] 13.8 % 11.5 - 14.5 % [place] Hematocrit (Bld) [Volume fraction] 29.9 % Low 35 - 47 % [place] Hemoglobin (Bld) [Mass/Vol] 9.6 g/dL Low 11.7 - 16 g/dL [place] Interpretation and review of laboratory results Abnormal [place] MCH (RBC) [Entitic mass] 30.3 pg 26 - 34 pg [place] MCHC (RBC) [Mass/Vol] 31.9 % Low 32 - 36 % [place] MCV (RBC) [Entitic vol] 94.9 fL 79 - 98 fL [place] Platelet mean volume (Bld) [Entitic vol] 7.2 fL Low 7.4 - 10.4 fL [place] Platelets (Bld) [#/Vol] 380 10*3/uL 140 - 440 10*3/uL [place] RBC (Bld) [#/Vol] 3.15 10*6/uL Low 3.8 - 5.2 10*6/uL [place] WBC (Bld) [#/Vol] 8.9 10*3/uL 3.6 - 10.7 10*3/uL [place] Test Performed by [facility], [address] [place], [place] [id number] [place] [address] Comprehensive Metabolic Pane l w/ Reflex to MGon 11-22-2019 Albumin [Mass/Vol] 2.8 g/dL Low 3.5 - 5 g/dL [place] ALP [Catalytic activity/Vol] 77 U/L 38 - 126 U/L [place] ALT [Catalytic activity/Vol] 20 U/L 0 - 34 U/L [place] Comment on above: The ALT test is perf ormed by an updated assay method. Please note that the reference intervals have been changed and are now sex specific. Anion gap [Moles/Vol] 4 mmol/L [place] AST [Catalytic activity/Vol] 52 U/L High 15 - 46 U/L [place] Bilirubin Ql (U) 0.2 mg/dL 0.2 - 1.3 mg/dL [place] Calcium [Mass/Vol] 8.3 mg/dL Low 8.4 - 10. 4 mg/dL [place] Chloride [Moles/Vol] 103 mmol/L 98 - 10 7 mmol/L [place] CO2 [Moles/Vol] 33 mmol/L High 22 - 30 mmol/L [place] Creatinine [Mass/Vol] 0.54 mg/dL 0.52 - 1.25 mg/dL [place] EGFR IF NonAfrican Ecuadorean >90.0 >60 mL/min [place] Comment on above: KDIGO guidelines pro [...] MDRD (S/P/Bld) [Vol rate/Area] mL/min/{1.73_m2} >60 mL/min [place] Glucose [Mass/Vol] 99 mg/dL 70 - 100 mg/dL [place] Interpretation and review of laboratory results Abnormal [place] Potassium [Moles/Vol] 3.1 mmol/L Low 3.5 - 5.1 mmol/L [place] Protein [Mass/Vol] 5.4 g/dL Low 6.3 - 8.2 g/dL [place] Sodium [Moles/Vol] 140 mmol/L 135 - 145 mmol/L [place] Urea nitrogen [Mass/Vol] 11 mg/dL 7 - 20 mg/d L [place] EKG 12 Lead if not already d one by divya 11-22-2019 [facility] [place] [facility], [facility] Incoming Cardiology Results From [facility] - 11/22/2019 12:02 PM EDT [facility] Test Date: 2019-11-21 Pat Name: Gonzalo Deluca Department: 01 Room: 454 Gender: F Stretcher And Drier: RACHEL : 1955 Requested By: RAY BARROSO Order Number: [id number] Reading MD: Vicente Brown Measurements Intervals [place] Rate: 89 P: 42 DE: 152 QRS: -20 QRSD: 100 T: 18 QT: 376 QTc: 458 Interpretive Statements SINUS RHYTHM Compared to ECG 08/02/2019 18:19:40 Ventricular premature complex(es) no longer present Electronically Signed On 11-22-2019 12:01:36 EDT by Vicentemedineering [facility] Test Date: 2019-11-21 Pat Name: Gonzalo Deluca Department: 01 Room: 454 Gender: F Stretcher And Drier: RCAHEL : 1955 Requested By: RAY BARROSO Order Number: [id number] Reading MD: Vicente Peeractive Measurements Intervals [place] Rate: 89 P: 42 DE: 152 QRS: -20 QRSD: 100 T: 18 QT: 376 QTc: 458 Interpretive Statements SINUS RHYTHM Compared to ECG 08/02/2019 18:19:40 Ventricular premature complex(es) no longer present Electronically Signed On 11-22-2019 12:01:36 EDT by Cabara [place] Hemoglobin A1con 11-22-2019 eAG 100 mg/dL [place] HbA1c (Bld) [Mass fraction] 5.1 % 4 - 6 % [place] Comment on above: --HgbA1C levels may not be accurate in patients who have renal disease, received recent blood transfusions, are anemic, or who have dyshemoglobinemia. Test Performed by [facility], [address] [place], [place] [id number] [place] [address] Lipid panel - fastingon Cholesterol [Mass/Vol] 132 mg/dL <200 [place] Cholesterol in HDL [Mass/Vol] 41 mg/dL 40 - 60 mg/dL [place] Cholesterol in LDL [Mass/Vol] 68 mg/dL <100 [place] Cholesterol.total/Choles terol in HDL [Mass ratio] 3 {ratio} [place] Comment on above: Ref Range: < 3 Low Risk for CHD 3-6 Mod Risk for CHD > 6 High Risk for CHD Triglyceride [Mass/Vol] 116 mg/dL <150 [place] Magnesiumon 11-22-2019 Magnesium [Mass/Vol] 1.9 mg/dL 1.6 - 2 .3 mg/dL [place] Test Performed by [facility], [address] [place], [address] Otheron 11-22-2019 Test Performed by [facility], [address] VL LOWER EXTREMITY VENOUS RI GHT [id number] 11-22-2019 [facility] ----- Right Lower Extremity Venous Duplex Report Ordering Physician: Lauren Serna Garage Attendant: Eh Rojas Interpreting Physician: Josef Cochran ----- [...] supine position. Images were obtained using a [employer] E9 vascular ultrasound machine. ----- Venous [...] electronically signed by Josef Cochran 11/22/2019 14:37 [facility] [place] [place] [facility] Results From Jessika/Anny - 11/22/2019 2:37 PM EDT [facility] ----- Right Lower Extremity Venous Duplex Report Ordering Physician: Lauren Serna Garage Attendant: Eh Rojas Interpreting Physician: Josef Cochran ----- [...] supine position. Images were obtained using a [employer] E9 vascular ultrasound machine. ----- Venous [...] electronically signed by Josef Cochran 11/22/2019 14:37 [place] APTTon 11-21-2019 aPTT Coag (Bld) [Time] 23.6 s 20 - 30.5 s [place] Comment on above: NOTE: The therapeuti c time for Heparin anticoagulation, based on Xa activity inhibition, is an APTT of 46-80 seconds. CBC Auto Differentialon Absolute Baso # 0.1 10*3/uL 0 - 0.2 10*3/uL [place] Absolute Neut # 4.8 10*3/uL 1.8 - 7 10*3/uL [place] Basophils/100 WBC (Bld) 0.7 % 0 - 2 % [place] Eosinophils (Bld) [#/Vol] 0.3 10*3/uL 0 - 0.5 10*3/uL [place] Eosinophils/100 WBC (Bld) 3.7 % 1 - 6 % [place] Erythrocyte distribution width (RBC) [Ratio] 14.0 % 11.5 - 14.5 % [place] Granulocytes/100 WBC (Bld) 71.5 % 40 - 80 % [place] Hematocrit (Bld) [Volume fraction] 34.5 % Low 35 - 47 % [place] Hemoglobin (Bld) [Mass/Vol] 11.0 g/dL Low 11.7 - 16 g/dL [place] Interpretation and review of laboratory results Abnormal [place] Lymphocytes (Bld) [#/Vol] 1.1 10*3/uL 1 - 4.3 10*3/uL [place] Lymphocytes/100 WBC (Bld) 16.9 % Low 20 - 40 % [place] MCH (RBC) [Entitic mass] 30.4 pg 26 - 34 pg [place] MCHC (RBC) [Mass/Vol] 32.0 % 32 - 36 % [place] MCV (RBC) [Entitic vol] 95.1 fL 79 - 98 fL [place] Monocytes (Bld) [#/Vol] 0.5 10*3/uL 0 - 0.8 10*3/uL [place] Monocytes/100 WBC (Bld) 7.2 % 2 - 10 % [place] Platelet mean volume (Bld) [Entitic vol] 6.7 fL Low 7.4 - 10.4 fL [place] Platelets (Bld) [#/Vol] 438 10*3/uL 140 - 440 10*3/uL [place] RBC (Bld) [#/Vol] 3.63 10*6/uL Low 3.8 - 5.2 10*6/uL [place] WBC (Bld) [#/Vol] 6.8 10*3/uL 3.6 - 10.7 10*3/uL [place] Test [facility], [address] [place], [place], [place] [id number] [place] [address] CT HEAD WO CONTRASTon 2019 Patient Name: GONZALO DELUCA ---CT--- Exam Date/Time 11/21/2019 16:56:[address] Head or Brain w/o Contrast Ordering Physician RAY ALLEN Accession Number [id number] CPT4 Codes 98031 () Reason For Exam right arm weakness [...] WENDELL Transcribed Date and Time: 11/21/2019 5:09 [facility], [facility] Incoming Radiology Results From [facility] - 11/21/2019 5:09 PM EDT Patient Name: GONZALO DELUCA ---CT--- Exam Date/Time 11/21/2019 16:56:[address] Head or Brain w/o Contrast Ordering Physician RAY ALLEN Accession Number [id number] CPT4 Codes 68440 () Reason For Exam right arm weakness [...] WENDELL Transcribed Date and Time: 11/21/2019 5:09 [place] Comprehensive Metabolic Pane l w/ Reflex to MGon 11-21-2019 Albumin [Mass/Vol] 3.3 g/dL Low 3.5 - 5 g/dL [place] ALP [Catalytic activity/Vol] 96 U/L 38 - 126 U/L [place] ALT [Catalytic activity/Vol] 23 U/L 0 - 34 U/L [place] Comment on above: The ALT test is perf ormed by an updated assay method. Please note that the reference intervals have been changed and are now sex specific. Anion gap [Moles/Vol] 4 mmol/L [place] AST [Catalytic activity/Vol] 37 U/L 15 - 46 U/L [place] Bilirubin Ql (U) 0.1 mg/dL Low 0.2 - 1.3 mg/dL [place] Calcium [Mass/Vol] 9.1 mg/dL 8.4 - 10. 4 mg/dL [place] Chloride [Moles/Vol] 100 mmol/L 98 - 10 7 mmol/L [place] CO2 [Moles/Vol] 37 mmol/L High 22 - 30 mmol/L [place] Creatinine [Mass/Vol] 0.66 mg/dL 0.52 - 1.25 mg/dL [place] EGFR IF NonAfrican [place] >90.0 >60 mL/min [place] Comment on above: KDIGO guidelines pro [...] MDRD (S/P/Bld) [Vol rate/Area] mL/min/{1.73_m2} >60 mL/min [place] Glucose [Mass/Vol] 93 mg/dL 70 - 100 mg/dL [place] Interpretation and review of laboratory results Abnormal [place] Potassium [Moles/Vol] 3.4 mmol/L Low 3.5 - 5.1 mmol/L [place] Protein [Mass/Vol] 6.3 g/dL 6.3 - 8.2 g/dL [place] Sodium [Moles/Vol] 141 mmol/L 135 - 145 mmol/L [place] Urea nitrogen [Mass/Vol] 12 mg/dL 7 - 20 mg/d L [place] Test Performed by [facility], [address] Magnesiumon 11-21-2019 Magnesium [Mass/Vol] 2.0 mg/dL 1.6 - 2 .3 mg/dL [place], [place] Test Performed by [facility], [address] [place], [place] [id number] [place] [address] Otheron 11-21-2019 Test Performed by [facility], [address] [place], [place] [id number] [place] [address] POCT Glucoseon 11-21-2019 Glucose [Mass/Vol] 94 mg/dL 70 - 100 mg/dL [place] Comment on above: Test performed by ucose meter. Results may be 10%-15% lower than serum/plasma values. (CLIA ID [id number]) Test Performed by [facility], [address] [place], [place] [address] [place] [address] Protime-INRon 11-21-2019 INR Coag (PPP) [Relative time] 1.0 {INR} [place], [place] Comment on above: Recommended Anticoag ulant [...] [Time] 10.1 s 9 - 12 s [place], [place] Comment on above: . Troponinon 11-21-2019 Troponin I.cardiac [Mass/Vol] ng/mL 0 - 0.034 ng/mL [place], [place] Comment on above: . Test Performed by [facility], [address] [place], [address] [id number] 11-13-2019 SARS-CoV-2 SARS-CoV-2 --> Statu s: F Not Detected Expected Result: Not Detected _ Real-time, RT-PCR performed on the [employer] System by the [facility]. Negative results do not preclude SARS-CoV-2 infection and should not be used as the sole basis for treatment or other patient management decisions. This assay was developed by [employer] and distributed under an Emergency Use Authorization (EUA) granted by the FDA for the qualitative detection of SARS-CoV-2 nucleic acid. Results were determined from a pool consisting of specimens from additional patients. This test was modified, and its performance characteristics, showing minimal loss of sensitivity, have been validated by the [facility]. Approval is pending review by the U. S. Food and Drug Administration. If symptoms are severe and persist, testing a new specimen may be warranted. Additionally, IgG testing may be considered for patients more than 7-10 days post onset of symptoms. Expected Result: Not Detected _ Real-time, RT-PCR performed on the [employer] System by the [facility]. Negative results do not preclude SARS-CoV-2 infection and should not be used as the sole basis for treatment or other patient management decisions. This assay was developed by [employer] and distributed under an Emergency Use Authorization (EUA) granted by the FDA for the qualitative detection of SARS-CoV-2 nucleic acid. Results were determined from a pool consisting of specimens from additional patients. This test was modified, and its performance characteristics, showing minimal loss of sensitivity, have been validated by the [facility]. Approval is pending review by the U. S. Food and Drug Administration. If symptoms are severe and persist, testing a new specimen may be warranted. Additionally, IgG testing may be considered for patients more than 7-10 days post onset of symptoms. Normal [facility] Comment on above: Order Comment: Speci men Source Comment:Nasopharyngeal Swab Performed By: #### C OVID ####[facility] [place], [place] Basic Metabolic Panelon 08-2 -2019 Calcium [Mass/Vol] 9.2 mg/dL Normal 8.4-10.4 [facility] Comment on above: Performed By: #### B MP3, HEMDF #### [facility] [address], [place] Glucose [Mass/Vol] 120 mg/dL High 70-100 [facility] Comment on above: Performed By: #### B MP3, HEMDF #### [facility] [address], [place] Urea nitrogen [Mass/Vol] 9 mg/dL Normal 7-20 [facility] Comment on above: Performed By: #### B MP3, HEMDF #### [facility] [address], [place] Anion gap [Moles/Vol] 7 Normal [facility] Comment on above: Performed By: #### B MP3, HEMDF #### [facility] [address], [place] CO2 [Moles/Vol] 31 mmol/L High 22-30 [facility] Comment on above: Performed By: #### B MP3, HEMDF #### [facility] [address] [place], [place] Creatinine [Mass/Vol] 0.49 mg/dL Low 0.52-1.25 [facility] Comment on above: Performed By: #### B MP3, HEMDF #### [place] [address] [place], [place] GFR/1.73 sq M predicted among blacks MDRD (S/P/Bld) [Vol rate/Area] mL/min/{1.73_m2} Normal >60 [facility] Comment on above: Performed By: #### B MP3, HEMDF #### [place] [address] [place], [place] GFR/1.73 sq M predicted among non-blacks MDRD (S/P/Bld) [Vol rate/Area] mL/min/{1.73_m2} Normal >60 [facility] Comment on above: Result Comment: KDIG [...] Performed By: #### B MP3, HEMDF #### [facility] [address] [place], [place] Potassium [Moles/Vol] 2.9 mmol/L Low 3.5-5.1 [facility] Comment on above: Performed By: #### B MP3, HEMDF #### [address] [place] Chloride [Moles/Vol] 103 mmol/L Normal 98-107 [facility] Comment on above: Performed By: #### B MP3, HEMDF #### [facility] [address] [place], [place] Sodium [Moles/Vol] 140 mmol/L Normal 135-145 [facility] Comment on above: Performed By: #### B MP3, HEMDF #### [facility] [address], [place] CR Chest Portableon 11-12-19 20 CR Chest Portable Patient Name: GONZALO DELUCA Diagnostic Radiology Exam Date/Time 11/12/2019 20:13:01 EDT Exam CR Chest Portable Ordering Physician NADEEM CASEY JENNIFER L. Accession Number [id number] CPT4 Codes 02171 () Reason For Exam cough and fever [...] Transcribed Date and Time: 11/12/2019 8:15 Normal [facility] Hemogram w/ Autodiffon 11-11 Abs Baso Cnt 0.1 10*3/uL Normal 0.0-0.2 [facility] Comment on above: Performed By: #### B MP3, HEMDF #### [facility] [address], [place] Abs Neutrophile Cnt 12.0 10*3/uL High 1.8-7.0 [facility] Comment on above: Performed By: #### B MP3, HEMDF #### [facility] [address] [place], [place] Basophils/100 WBC (Bld) 0.4 % Normal 0.0-2.0 [facility] Comment on above: Performed By: #### B MP3, HEMDF #### [facility] [address], [place] Eosinophils (Bld) [#/Vol] 0.2 10*3/uL Normal 0.0-0.5 [facility] Comment on above: Performed By: #### B MP3, HEMDF #### [facility] [address], [place] Eosinophils/100 WBC (Bld) 1.6 % Normal 1.0-6.0 [facility] Comment on above: Performed By: #### B MP3, HEMDF #### [place] [address] [address] [place], [place] Erythrocyte distribution width (RBC) [Ratio] 14.2 % Normal 11.5-14.5 [facility] Comment on above: Performed By: #### B MP3, HEMDF #### [place] [address] [address] [place], [place] Granulocytes/100 WBC (Bld) 81.3 % High 40.0-80.0 [facility] Comment on above: Performed By: #### B MP3, HEMDF #### [facility] [address], [place] Hematocrit (Bld) [Volume fraction] 38.0 % Normal 35.0-47.0 [facility] Comment on above: Performed By: #### B MP3, HEMDF #### [facility] [address], [place] Hemoglobin (Bld) [Mass/Vol] 12.9 g/dL Normal 11.7-16.0 [facility] Comment on above: Performed By: #### B MP3, HEMDF #### [place] [address] [address] [place], [place] Lymphocytes (Bld) [#/Vol] 1.4 10*3/uL Normal 1.0-4.3 [facility] Comment on above: Performed By: #### B MP3, HEMDF #### [place] [address] [address] [place], [place] Lymphocytes/100 WBC (Bld) 9.3 % Low 20.0-40.0 [facility] Comment on above: Performed By: #### B MP3, HEMDF #### [place] [address] [address] [place], [place] MCH (RBC) [Entitic mass] 32.0 pg Normal 26.0-34.0 [facility] Comment on above: Performed By: #### B MP3, HEMDF #### [place] [address] [place], [place] MCHC (RBC) [Mass/Vol] 34.0 % Normal 32.0-36.0 [facility] Comment on above: Performed By: #### B MP3, HEMDF #### [place] [address] [address] [place], [place] MCV (RBC) [Entitic vol] 94.1 fL Normal 79.0-98.0 [facility] Comment on above: Performed By: #### B MP3, HEMDF #### [place] [address] [place], [place] Monocytes (Bld) [#/Vol] 1.1 10*3/uL High 0.0-0.8 [facility] Comment on above: Performed By: #### B MP3, HEMDF #### [place] [address] [address] [place], [place] Monocytes/100 WBC (Bld) 7.4 % Normal 2.0-10.0 [facility] Comment on above: Performed By: #### B MP3, HEMDF #### [place] [address] [address] [place], [place] Platelet mean volume (Bld) [Entitic vol] 6.8 fL Low 7.4-10.4 [facility] Comment on above: Performed By: #### B MP3, HEMDF #### [place] [address] [address] [place], [place] Platelets (Bld) [#/Vol] 526 10*3/uL High 140-440 [facility] Comment on above: Performed By: #### B MP3, HEMDF #### [facility] [employer] [facility] [address], [place] RBC (Bld) [#/Vol] 4.03 10*6/uL Normal 3.80-5.20 [facility] Comment on above: Performed By: #### B MP3, HEMDF #### [facility] [employer] [facility] [address], [place] WBC (Bld) [#/Vol] 14.8 10*3/uL High 3.6-10.7 [facility] Comment on above: Performed By: #### B MP3, HEMDF #### [facility] [employer] [facility] [address] [place], [place] VL Venous Duplex US Lower Ex t Righton 11-10-2019 VL Venous Duplex US Lower Ext Right Patient Name: GONZALO DELUCA Ultrasound Exam Date/Time 11/10/2019 18:25:00 EDT Exam VL Venous Duplex US Lower Ext Right Ordering Physician [id number] -TANI JOSEPH Accession Number [id number] CPT4 Codes 69037 () Reason For Exam Other specified soft tissue disorders Report [facility] ----- Right Lower Extremity Venous Duplex Report Ordering Physician: Tani Joseph Garage Attendant: Luda Alonso Interpreting Physician: Ramses Mcgrath MD ----- Location: [facility] [place] ----- Indications: Leg swelling. Pt s/p hysterectomy [...] supine position. Images were obtained using a Scutum i700 ColorChipio vascular ultrasound machine. ----- Venous flow and [...] 11/12/2019 8:11 am Signed by: RAMSES MCGRATH [facility] Op Noteon 11-06-2019 Op Note PATIENT: MAHAMED DELUCA ADMISSION DATE: 11/06/2019 SURGERY DATE: 11/06/2019 DATE OF : 1955 AGE: 63 ADMITTING PHYSICIAN: Ziyad Menendez MD ATTENDING PHYSICIAN: Ziyad Menendez MD DICTATING PHYSICIAN: Ziyad Menendez MD OPERATIVE RECORD Procedure: ABDOMINAL RADICAL HYSTERECTOMY WITH BSO AND PELVIC LYMPH NODE DISSECTION. Preoperative Diagnosis: Cervical cancer stage IB2. Postoperative Diagnosis: Cervical cancer stage IB2. Anesthesia: General. Group Exercise Manager : Dr. Beth. Description of Findings: No [...] cuff was closed using interrupted 0 Vicryl [id number]. The abdomen and pelvis was then copiously [...] EBL about 250 cc. Diskriter Job ID: [id number] Ziyad Menendez MD DOD:11/06/2019 10:13 A /geraldine DOT:11/06/2019 10:45 A Job Number: [id number] Document Number: [id number] cc: Ziyad Menendez MD [address] [facility] [address] Angle Case MD [address] [address] Normal [facility] Surgical Pathologyon 020 Surgical Pathology [id number] [facility] PATHOLOGY AND LABORATORY MEDICINE [address] [place] [address] FINAL SURGICAL PATHOLOGY REPORT NAME: GONZALO DELUCA : 1955 63 Y F BILLING NO.: [id number] LOCATION: [facility] 1706 PROCEDURE 11/06/2019 DATE: SURGEON: ZIYAD MENENDEZ MD [...] (pN): pN1 FIGO STAGE FIGO Stage: IIIC1 SHRIMP CLEANER TUMOR BLOCK(S): A2, A3 HCK/HCK Signature> ANSLEY [...] No papillations or excrescences are identified. Multiple agency sales representative sections are submitted. The left [...] masses or lesions are grossly identified. Multiple agency sales representative sections are submitted. Cassette Summary: 1 - 4 is ectocervix with vaginal cuff margin from 6 o'clock to 9 o'clock, entirely submitted; 5 is agency sales representative 9 o'clock to 12 o'clock; 6 - 8 is 3 o'clock to 6 o'clock, entirely submitted; 9 is agency sales representative 12 o'clock to 3 o'clock; [...] lower uterine segment; 20 and 21 is agency sales representative right parametrium; 22 is agency sales representative left parametrium; 23 is left [...] from the specimen is submitted into 13. [facility] Disclaimer: The following statement applies to all immunohistochemistry, in situ hybridization, molecular studies, and immunofluorescence testing. The use of one or more reagents in the above tests is regulated as an analyte specific reagent (ASR). These tests were developed and their performance characteristics determined by the clinical laboratories of [facility]. They have not been cleared by [...] negativity on decalcified specimens. Professional Performing Location: [address] [address]. DEPARTMENT OF PATHOLOGY AND LABORATORY MEDICINE [place], [place] [address] Normal [facility] TS GELon 11-05-2019 TS GEL ABO Group: A Rh, Gel: POS Antibody Screen Gel: NEG Normal [facility] Comment on above: Performed By: #### T SGL ####[place] [address] TYPE AND SCREENon 11-05-2019 Sodium [Moles/Vol] A [facility] [employer] [place], [place] Sodium [Moles/Vol] Positive [facility] [place], [place] Sodium [Moles/Vol] Negative [facility], [place] Test Performed by [id number] [place] [address], [place] CNPNon 10-31-2019 CNPN Telephone (MOLEFV) RAUDELSUMEETGONZALO LEBLANC ([id number]) 1955 F Date Time Provider Department 10/31/19 [...] Encounter Status:Closed by AMELIE ZAYAS on 10/31/19 [facility] PROGRESSon 10-31-2019 PROGRESS HNO ID: [id number] Author: Ankit Cook Service: ? Author Type: [...] stains were performed and evaluated at the [facility] using block B1. 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 ?P53 shows wild type expression. ?ER shows moderate expression in 30% of tumor cells. ?DE is negative. ?An RNA in situ hybridization [...] days 11/06/19 radical ARIANA-BSO-LND (Dr Ziyad Menendez, [facility]) 11/09/19 ED Visit (OSH) MRI not [...] yo T1b1 N1a SCC cervix Staged at [facility] 11/06/2019 Hx COPD, 3L suppl O2 at home Possible TIA 07/2019 CAD abd stress 2017; possible NSTEMI 2017 (per pt) Mother berast CA Sister breast CA [facility] ER eval 10/21/[address] notable for old T5 compressions fx PLAN: MRI and PET CT completed at [facility] S/p staging surgery w Dr. Menendez 11/06/201904/01 Pelvic nodes positive, Ao nodes not sampled 10mm stromal invasion Planned for adjuvant chemoRT at [facility] Ankit Cook MD 5min spent counseling the pateint by telephone Normal [facility] Basic Metabolic Panelon 08- Anion gap [Moles/Vol] 6 mmol/L [place], [place] Calcium [Mass/Vol] 9.7 mg/dL 8.4 - 10. 4 mg/dL [place] Chloride [Moles/Vol] 102 mmol/L 98 - 10 7 mmol/L [place] CO2 [Moles/Vol] 32 mmol/L High 22 - 30 mmol/L [place] Creatinine [Mass/Vol] 0.57 mg/dL 0.52 - 1.25 mg/dL [place] EGFR IF NonAfrican Ecuadorean >90.0 >60 mL/min [place], [place] Comment on above: KDIGO guidelines pro [...] MDRD (S/P/Bld) [Vol rate/Area] mL/min/{1.73_m2} >60 mL/min [place] Glucose [Mass/Vol] 111 mg/dL High 70 - 100 mg/dL [place] Potassium [Moles/Vol] 4.1 mmol/L 3.5 - 5.1 mmol/L [place] Sodium [Moles/Vol] 140 mmol/L 135 - 145 mmol/L [place] Urea nitrogen [Mass/Vol] 20 mg/dL 7 - 20 mg/d L [facility] [place] [place] ABDOMEN PELVIS W CONTRAST on 10-27-2019 Real, [facility] Incoming Radiology Results From [facility] - 10/27/2019 5:10 PM EDT Patient Name: GONZALO DELUCA ---CT--- Exam Date/Time 10/27/2019 16:53:[address] Abdomen/Pelvis w/ IV Contrast (IV Onl Ordering Physician MD JAMIE, ANKIT French Accession Number [id number] CPT4 Codes 80934 (CT Abdomen/Pelvis w/ IV Contrast (IV Onl), Q9967 (CT ISOVUE 370MG/ML&[id number]&M L&1) Reason For Exam RUQ/RIGHT flank pain, [...] R Transcribed Date and Time: 10/27/2019 5:09 [place] Patient Name: GONZALO DELUCA ---CT--- Exam Date/Time 10/27/2019 16:53:[address] Abdomen/Pelvis w/ IV Contrast (IV Onl Ordering Physician MD JAMIE, ANKIT French Accession Number [id number] CPT4 Codes 35720 (CT Abdomen/Pelvis w/ IV Contrast (IV Onl), Q9967 (CT ISOVUE 370MG/ML&[id number]&M L&1) Reason For Exam RUQ/RIGHT flank pain, [...] R Transcribed Date and Time: 10/27/2019 5:09 [place] Hemogram (CBC) w/Auto Diffon 10-27-2019 Absolute Baso # 0.1 10*3/uL 0 - 0.2 10*3/uL [place] Absolute Neut # 9.8 10*3/uL High 1.8 - 7 10*3/uL [place] Basophils/100 WBC (Bld) 0.4 % 0 - 2 % [place] Eosinophils (Bld) [#/Vol] 0.5 10*3/uL 0 - 0.5 10*3/uL [place] Eosinophils/100 WBC (Bld) 4.0 % 1 - 6 % [place] Erythrocyte distribution width (RBC) [Ratio] 14.4 % 11.5 - 14.5 % [place] Granulocytes/100 WBC (Bld) 76.6 % 40 - 80 % [place] Hematocrit (Bld) [Volume fraction] 41.9 % 35 - 47 % [place] Hemoglobin (Bld) [Mass/Vol] 13.7 g/dL 11.7 - 16 g/dL [place] Lymphocytes (Bld) [#/Vol] 1.5 10*3/uL 1 - 4.3 10*3/uL [place] Lymphocytes/100 WBC (Bld) 12.1 % Low 20 - 40 % [place] MCH (RBC) [Entitic mass] 30.3 pg 26 - 34 pg [place] MCHC (RBC) [Mass/Vol] 32.6 % 32 - 36 % [place], [place] MCV (RBC) [Entitic vol] 93.1 fL 79 - 98 fL [place], [place] Monocytes (Bld) [#/Vol] 0.9 10*3/uL High 0 - 0.8 10*3/uL [place], [place] Monocytes/100 WBC (Bld) 6.9 % 2 - 10 % [place] Platelet mean volume (Bld) [Entitic vol] 7.1 fL Low 7.4 - 10.4 fL [place], [place] Platelets (Bld) [#/Vol] 413 10*3/uL 140 - 440 10*3/uL [place] RBC (Bld) [#/Vol] 4.50 10*6/uL 3.8 - 5.2 10*6/uL [place] WBC (Bld) [#/Vol] 12.8 10*3/uL High 3.6 - 10.7 10*3/uL [place] Hepatic Function Panelon Albumin [Mass/Vol] 4.2 g/dL 3.5 - 5 g/dL [place], [place] ALP [Catalytic activity/Vol] 116 U/L 38 - 126 U/L [place] ALT [Catalytic activity/Vol] 42 U/L High 0 - 34 U/L [place] Comment on above: The ALT test is perf ormed by an updated assay method. Please note that the reference intervals have been changed and are now sex specific. AST [Catalytic activity/Vol] 47 U/L High 15 - 46 U/L [place] Bilirubin Ql (U) 0.4 mg/dL 0.2 - 1.3 mg/dL [place] Bilirubin.direct [Mass/Vol] 0.0 mg/dL 0 - 0.3 mg/dL [place] Protein [Mass/Vol] 7.5 g/dL 6.3 - 8.2 g/dL [place] Lipaseon 10-27-2019 Lipase [Catalytic activity/Vol] 72 U/L 23 - 300 U/L [place] Otheron 10-27-2019 Interpretation and review of laboratory results Abnormal [place] Test Performed by [facility], [address] [place], [place], [place] [address] [place], [place] LUMBAR SPINE WO CONTRASTo n 10-21-2019 Patient Name: GONZALO DELUCA ---CT--- Exam Date/Time 10/21/2019 21:54:[address] Spine Lumbar w/o Contrast Ordering Physician DO OTTO DAVID J Accession Number [id number] CPT4 Codes 96415 () Reason For Exam Acute onset T [...] WENDELL Transcribed Date and Time: 10/21/2019 10:26 [facility] [place] Real, [facility] Incoming Radiology Results From [facility] - 10/21/2019 10:26 PM EDT Patient Name: GONZALO DELUCA ---CT--- Exam Date/Time 10/21/2019 21:54:[address] Spine Lumbar w/o Contrast Ordering Physician DO OTTO DAVID J Accession Number [id number] CPT4 Codes 36228 () Reason For Exam Acute onset T [...] WENDELL Transcribed Date and Time: 10/21/2019 10:26 [place] THORACIC SPINE WO CONTRAS Ton 10-21-2019 Patient Name: GONZALO DELUCA ---CT--- Exam Date/Time 10/21/2019 20:45:[address] Spine Thoracic w/o Contrast Ordering Physician DO OTTO DAVID J Accession Number [id number] CPT4 Codes 09239 () Reason For Exam Acute onset T [...] WENDELL Transcribed Date and Time: 10/21/2019 10:26 [place], [place] Real, [facility] 10/21/2019 10:26 PM EDT Patient Name: GONZALO DELUCA ---CT--- Exam Date/Time 10/21/2019 20:45:[address] Spine Thoracic w/o Contrast Ordering Physician DO OTTO DAVID J Accession Number [id number] CPT4 Codes 30067 () Reason For Exam Acute onset T [...] WENDELL Transcribed Date and Time: 10/21/2019 10:26 [facility] [place] PROGRESSon 10-19-2019 PROGRESS HNO ID: [id number] Author: Ankit Cook Service: ? Author Type: [...] stains were performed and evaluated at the [facility] using block B1. 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 ?P53 shows wild type expression. ?ER shows moderate expression in 30% of tumor cells. ?DE is negative. ?An RNA in situ hybridization [...] appt for 2nd opinion at [facility] 1brielle Cumm[facility] per pt, follow up encouraged Telephone encounter after MR and PET Ankit Cook MD 9min spent counseling the patient by telephone. [facility] ALLIED HEALTHon 09-27-2019 ALLIED HEALTH HNO ID: [id number] Author: ALIYA Choi (Ct) Service: Radiology Author Type: Clinical Stretcher And Drier Type: Allied Health Filed: 09/27/2019 9:15 AM [...] ALIYA Choi September 27, 2019 9:14 AM [facility] US FEMALE PELVIS TRANSABD LT Don 09-27-2019 US FEMALE PELVIS TRANSABD LTD * * *Final Report* * * DATE OF EXAM: Sep 27 2019 8:58AM MARCO 1059 - US FEMALE PELVIS TRANSABD LTD / PROCEDURE REASON: N95.5-Czyp-gszdbbieon bleeding * * * * Physician Interpretation [...] uterine segment. Pelvic MRI may be helpful. Concrete Puddler: PSCB Transcribe Date/Time: Sep 27 2019 5:07P Dictated by : SAAD ESQUIVEL MD This examination was interpreted and the report reviewed and electronically signed by: SAAD ESQUIVEL MD on Sep 27 2019 5:14PM EST [id number] [facility] FEMALE PELVIS TRANSVAGon 09-27-2019 US FEMALE PELVIS TRANSVAG * * *Final Report* * * DATE OF EXAM: Sep 27 2019 8:58AM U 1060 - US FEMALE PELVIS TRANSVAG / PROCEDURE REASON: N95.4-Zusx-nuvucfaken bleeding * * * * Physician Interpretation [...] uterine segment. Pelvic MRI may be helpful. Concrete Puddler: ANGEL Transcribe Date/Time: Sep 27 2019 5:07P Dictated by : SAAD ESQUIVEL MD This examination was interpreted and the report reviewed and electronically signed by: SAAD ESQUIVEL MD on Sep 27 2019 5:14PM EST [id number] Normal [facility] Basic Metabolic Panelon 05- Anion gap [Moles/Vol] 8 mmol/L [place] Calcium [Mass/Vol] 8.7 mg/dL 8.4 - 10. 4 mg/dL [place] Chloride [Moles/Vol] 105 mmol/L 98 - 10 7 mmol/L [place] CO2 [Moles/Vol] 26 mmol/L 22 - 30 mmol/L [place] Creatinine [Mass/Vol] 0.5 mg/dL Low 0.52 - 1.25 mg/dL [place] EGFR IF NonAfrican [place]cuadorean >90.0 >60 mL/min [place] Comment on above: KDIGO guidelines pro [...] MDRD (S/P/Bld) [Vol rate/Area] mL/min/{1.73_m2} >60 mL/min [place] Glucose [Mass/Vol] 145 mg/dL High 70 - 100 mg/dL [place] Interpretation and review of laboratory results Abnormal [place] Potassium [Moles/Vol] 4.0 mmol/L 3.5 - 5.1 mmol/L [place] Sodium [Moles/Vol] 139 mmol/L 135 - 145 mmol/L [place] Urea nitrogen [Mass/Vol] 17 mg/dL 7 - 20 mg/d L [place] Test Performed by [facility] [employer] [facility], [address] [place], [place], [place] [id number] [place] [address] CBC Auto Differentialon 05-1 Absolute Baso # 0.0 10*3/uL 0 - 0.2 10*3/uL [place] Absolute Neut # 13.6 10*3/uL High 1.8 - 7 10*3/uL [place] Basophils/100 WBC (Bld) 0.2 % 0 - 2 % [place] Eosinophils (Bld) [#/Vol] 0.0 10*3/uL 0 - 0.5 10*3/uL [place] Eosinophils/100 WBC (Bld) 0.0 % Low 1 - 6 % [place] Erythrocyte distribution width (RBC) [Ratio] 13.8 % 11.5 - 14.5 % [place] Granulocytes/100 WBC (Bld) 92.2 % High 40 - 80 % [place] Hematocrit (Bld) [Volume fraction] 33.9 % Low 35 - 47 % [place] Hemoglobin (Bld) [Mass/Vol] 11.1 g/dL Low 11.7 - 16 g/dL [place] Interpretation and review of laboratory results Abnormal [place] Lymphocytes (Bld) [#/Vol] 0.6 10*3/uL Low 1 - 4.3 10*3/uL [place] Lymphocytes/100 WBC (Bld) 3.9 % Low 20 - 40 % [place] MCH (RBC) [Entitic mass] 31.0 pg 26 - 34 pg [place] MCHC (RBC) [Mass/Vol] 32.8 % 32 - 36 % [place] MCV (RBC) [Entitic vol] 94.6 fL 79 - 98 fL [place] Monocytes (Bld) [#/Vol] 0.5 10*3/uL 0 - 0.8 10*3/uL [place] Monocytes/100 WBC (Bld) 3.7 % 2 - 10 % [place] Platelet mean volume (Bld) [Entitic vol] 7.5 fL 7.4 - 10.4 fL [place] Platelets (Bld) [#/Vol] 208 10*3/uL 140 - 440 10*3/uL [place] RBC (Bld) [#/Vol] 3.58 10*6/uL Low 3.8 - 5.2 10*6/uL [place] WBC (Bld) [#/Vol] 14.7 10*3/uL High 3.6 - 10.7 10*3/uL [place] Test Performed by [facility], [address] [facility] [employer] [place], [place] [id number] [place] [address] Basic Metabolic Panelon 05-1 Anion gap [Moles/Vol] 8 mmol/L [place] Calcium [Mass/Vol] 8.2 mg/dL Low 8.4 - 10. 4 mg/dL [place] Chloride [Moles/Vol] 99 mmol/L 98 - 10 7 mmol/L [place] CO2 [Moles/Vol] 28 mmol/L 22 - 30 mmol/L [place] Creatinine [Mass/Vol] 0.49 mg/dL Low 0.52 - 1.25 mg/dL [place] EGFR IF NonAfrican Ecuadorean >90.0 >60 mL/min [place] Comment on above: KDIGO guidelines pro [...] MDRD (S/P/Bld) [Vol rate/Area] mL/min/{1.73_m2} >60 mL/min [place] Glucose [Mass/Vol] 185 mg/dL High 70 - 100 mg/dL [place] Interpretation and review of laboratory results Abnormal [place] Potassium [Moles/Vol] 3.7 mmol/L 3.5 - 5.1 mmol/L [place] Sodium [Moles/Vol] 134 mmol/L Low 135 - 145 mmol/L [place] Urea nitrogen [Mass/Vol] 11 mg/dL 7 - 20 mg/d L [place] CBC Auto Differentialon 05-1 Absolute Baso # 0.0 10*3/uL 0 - 0.2 10*3/uL [place] Absolute Neut # 10.2 10*3/uL High 1.8 - 7 10*3/uL [place] Basophils/100 WBC (Bld) 0.0 % 0 - 2 % [place] Eosinophils (Bld) [#/Vol] 0.0 10*3/uL 0 - 0.5 10*3/uL [place] Eosinophils/100 WBC (Bld) 0.0 % Low 1 - 6 % [place] Erythrocyte distribution width (RBC) [Ratio] 14.0 % 11.5 - 14.5 % [place] Granulocytes/100 WBC (Bld) 94.9 % High 40 - 80 % [place] Hematocrit (Bld) [Volume fraction] 35.8 % 35 - 47 % [place] Hemoglobin (Bld) [Mass/Vol] 11.9 g/dL 11.7 - 16 g/dL [place] Interpretation and review of laboratory results Abnormal [place] Lymphocytes (Bld) [#/Vol] 0.3 10*3/uL Low 1 - 4.3 10*3/uL [place] Lymphocytes/100 WBC (Bld) 3.1 % Low 20 - 40 % [place] MCH (RBC) [Entitic mass] 31.3 pg 26 - 34 pg [place] MCHC (RBC) [Mass/Vol] 33.1 % 32 - 36 % [place] MCV (RBC) [Entitic vol] 94.5 fL 79 - 98 fL [place] Monocytes (Bld) [#/Vol] 0.2 10*3/uL 0 - 0.8 10*3/uL [place] Monocytes/100 WBC (Bld) 2.0 % 2 - 10 % [place] Platelet mean volume (Bld) [Entitic vol] 7.0 fL Low 7.4 - 10.4 fL [place] Platelets (Bld) [#/Vol] 180 10*3/uL 140 - 440 10*3/uL [place] RBC (Bld) [#/Vol] 3.79 10*6/uL Low 3.8 - 5.2 10*6/uL [place] WBC (Bld) [#/Vol] 10.8 10*3/uL High 3.6 - 10.7 10*3/uL [place] Test Performed by [employer] [facility], [address] [place], [place], [place] [id number] [place] [address] Gram Stainon 08-03-2019 INR Coag (Bld) [Relative time] Moderate epithelial cells/lpf. Many polymorphonuclear cells/lpf. Moderate gram positive cocci Rare gram negative bacilli. Few gram positive bacilli. Few yeast. [place] Test Performed by [facility], [address] [place] [id number] Specimen Source Comment:Sputum Expectorated [place] Legionella Antigen, Urineon 08-03-2019 LEGIONELLA ANTIGEN Legionella antigen N OT DETECTED. [place] Magnesiumon 08-03-2019 Magnesium [Mass/Vol] 2.1 mg/dL 1.6 - 2 .3 mg/dL [place] Otheron 08-03-2019 Test Performed by [facility], [address], [place], [place] [address] [place] Test Performed by [facility], [address] [place] [id number] Specimen Source Comment:Urine, clean catch [place] Respiratory Virus PCR Panelo n 08-03-2019 [...] pertussis, Bordetella parapertussis, Chlamydia pneumoniae, Mycoplasma pneumoniae [place] Test Performed by [facility], [address] [place] [id number] Specimen Source Comment:Nasopharyngeal Swab [place] STREP PNEUMONIAE ANTIGENon 0 08-03-2019 STREP PNEUMONIAE ANTIGEN, URINE Strep pneumo antigen NOT DETECTED. [place] Urinalysison 08-03-2019 Appearance (U) Clear Clear NA [place] Comment on above: . Bilirubin Urine Negative Negative mg/dL [place] Comment on above: . Color (U) Yellow Lt. Yellow NA [place] Comment on above: . Glucose, Ur Normal Normal (<70) mg/dL [place] Comment on above: . Interpretation and review of laboratory results Abnormal [place] Ketones Ql (U) Negative Negative mg/dL [place] Comment on above: . LEUKOCYTES, UA Negative Negative Sandra/uL [place], [place] Comment on above: . Mucous Threads Few Negative /[LPF] [place] Comment on above: . Nitrite, Urine Negative Negative NA [place] Comment on above: . Occult Blood,Urine Negative Negative mg/dL [place] Comment on above: . pH (U) 6.5 [pH] [place] Comment on above: . Protein (U) [Mass/Vol] 10 mg/dL Abnormal Negative [place] Comment on above: . RBC (U) [#/Vol] 0-2 0 - 2 /[HPF] [place] Comment on above: . Specific [place], Urine 1.014 [place] Comment on above: . Squam Epithel, UA 0-2 3 - 5 /[HPF] [place] Comment on above: . Urobilinogen, Urine 2 mg/dL Abnormal Normal (0-1) [place] Comment on above: . WBC, UA 0-2 0 - 5 /[HPF] [place] Comment on above: . [facility], [address] [place], [place] [address] [place] Basic Metabolic Panelon 05-1 Anion gap [Moles/Vol] 11 mmol/L [place] Calcium [Mass/Vol] 8.7 mg/dL 8.4 - 10. 4 mg/dL [place] Chloride [Moles/Vol] 101 mmol/L 98 - 10 7 mmol/L [place] CO2 [Moles/Vol] 26 mmol/L 22 - 30 mmol/L [place] Creatinine [Mass/Vol] 0.61 mg/dL 0.52 - 1.25 mg/dL [place] EGFR IF NonAfrican [place]cuadorean >90.0 >60 mL/min [place] Comment on above: KDIGO guidelines pro [...] MDRD (S/P/Bld) [Vol rate/Area] mL/min/{1.73_m2} >60 mL/min [place] Glucose [Mass/Vol] 118 mg/dL High 70 - 100 mg/dL [place] Interpretation and review of laboratory results Abnormal [place] Potassium [Moles/Vol] 3.5 mmol/L 3.5 - 5.1 mmol/L [place] Sodium [Moles/Vol] 139 mmol/L 135 - 145 mmol/L [place] Urea nitrogen [Mass/Vol] 9 mg/dL 7 - 20 mg/d L [place] Test Performed by [facility], [address] [place], [place] [id number] [place] [address] [employer] [place] COVID-19on 08-02-2019 SARS-CoV-2 Not Detected Expected Result: Not Detected _ Real-time, RT-PCR performed on the [employer] System by the [employer] [facility]. Negative results do not preclude SARS-CoV-2 infection and should not be used as the sole basis for treatment or other patient management decisions. This assay was developed by [employer] and distributed under an Emergency Use Authorization (EUA) granted by the FDA for the qualitative detection of SARS-CoV-2 nucleic acid. [employer] [place] Test Performed by [facility], [address] [place] [id number] Specimen Source Comment:Nasopharyngeal Swab [place] Hemogram (CBC)on 08-02-2019 Erythrocyte distribution width (RBC) [Ratio] 14.1 % 11.5 - 14.5 % [place] Hematocrit (Bld) [Volume fraction] 37.5 % 35 - 47 % [place] Hemoglobin (Bld) [Mass/Vol] 12.5 g/dL 11.7 - 16 g/dL [place] Interpretation and review of laboratory results Abnormal [place] MCH (RBC) [Entitic mass] 31.5 pg 26 - 34 pg [place] MCHC (RBC) [Mass/Vol] 33.4 % 32 - 36 % [place] MCV (RBC) [Entitic vol] 94.3 fL 79 - 98 fL [place] Platelet mean volume (Bld) [Entitic vol] 7.6 fL 7.4 - 10.4 fL [place] Platelets (Bld) [#/Vol] 196 10*3/uL 140 - 440 10*3/uL [place] RBC (Bld) [#/Vol] 3.98 10*6/uL 3.8 - 5.2 10*6/uL [place] WBC (Bld) [#/Vol] 12.6 10*3/uL High 3.6 - 10.7 10*3/uL [place] Test Performed by [facility], [address] [place]ANNY [address] Lactic Acid, Plasmaon 2019 Interpretation and review of laboratory results Abnormal [place] Lactate [Moles/Vol] 0.6 mmol/L Low 0.7 - 2 mmol/L [place] Test Performed by [facility], [address] [place]AN[place] [address] Troponin x1on 08-02-2019 Troponin I.cardiac [Mass/Vol] ng/mL 0 - 0.034 ng/mL [place] Comment on above: . Test Performed by [facility], [address], [address] [facility] [place], [place] XR CHEST PORTABLEon 08-02-19 Real, [facility] Incoming [facility]iology Results From [facility] - 08/02/2019 6:51 PM EDT Patient Name: GONZALO DELUCA ---Diagnostic Radiology--- Exam Date/Time 08/02/2019 18:40:13 EDT Exam CR Chest Portable Ordering Physician HeatherMary ENIDSIENAJOANIE Accession Number [id number] CPT4 Codes 96817 () Reason For Exam SOB, cough Report [...] Osseous degenerative changes. Report Dictated on Workstation: [facility] --- Final --- Dictating Physician: MD CAMACHO BRIAN Signed Date and Time: 08/02/2019 6:49 pm Signed by: MD CAMACHO BRIAN Transcribed Date and Time: 08/02/2019 6:50 [place] Patient Name: GONZALO DELUCA ---Diagnostic Radiology--- Exam Date/Time 08/02/2019 18:40:13 EDT Exam CR Chest Portable Ordering Physician JOANIE ALMONTE Accession Number [id number] CPT4 Codes 21076 () Reason For Exam SOB, cough Report [...] Osseous degenerative changes. Report Dictated on Workstation: [facility] --- Final --- Dictating Physician: MD CAMACHO BRIAN Signed Date and Time: 08/02/2019 6:49 pm Signed by: MD CAMACHO BRIAN Transcribed Date and Time: 08/02/2019 6:50 [facility] [place] Vital Signs Date Time Vital Sign Value Performing Clinician Facility 01-22-2025 20:32-0500 Heart rate 93 /min Freddy Linder MD Work Phone: [facility] 01-22-2025 20:32-0500 Respiratory rate 18 /min Freddy Linder MD Work Phone: [facility] 01-22-2025 20:32-0500 SaO2% (BldA) [Mass fraction] 94 % Freddy Linder MD Work Phone: [facility] 01-22-2025 19:11-0500 Body temperature 99 [degF] Freddy Linder MD Work Phone: [facility] 01-22-2025 19:11-0500 Diastolic blood pressure 91 mm[Hg] Freddy Linder MD Work Phone: [facility] 01-22-2025 19:11-0500 Systolic blood pressure 165 mm[Hg] Freddy Linder MD Work Phone: [facility] 01-22-2025 05:46-0500 Body mass index (BMI) [Ratio] 20.29 kg/m2 Freddy Linder MD Work Phone: [facility] 01-22-2025 05:46-0500 Body weight 53.62 kg Freddy Linder MD Work Phone: [facility] 01-21-2025 13:40-0500 Body height 162.6 cm Freddy Linder MD Work Phone: [facility] 01-14-2025 07:06-0400 SaO2% (BldA) [Mass fraction] 94.7 % Freddy Linder MD Work Phone: [facility] 08-20-2024 10:28-0400 Body height 162.6 cm Elyssa Tesfaye NP Work Phone: [facility] 08-20-2024 10:28-0400 Body mass index (BMI) [Ratio] 16 kg/m2 Elyssa Tesfaye NP Work Phone: [facility] 08-20-2024 10:28-0400 Body temperature 96.8 [degF] Elyssa Moservik FILM AND VIDEO EDITOR Work Phone: [facility] 08-20-2024 10:28-0400 Body weight 42.27 kg Elyssa Tesfaye FILM AND VIDEO EDITOR Work Phone: [facility] 08-20-2024 10:28-0400 Diastolic blood pressure 67 mm[Hg] Elyssa Ketvik FILM AND VIDEO EDITOR Work Phone: [facility] 08-20-2024 10:28-0400 Heart rate 92 /min Elyssa Moservik FILM AND VIDEO EDITOR Work Phone: [facility] 08-20-2024 10:28-0400 SaO2% (BldA) [Mass fraction] 91 % Elyssa Moservik FILM AND VIDEO EDITOR Work Phone: [facility] Comment on above: 4Lp 08-20-2024 10:28-0400 Systolic blood pressure 105 mm[Hg] Elyssa Moservik FILM AND VIDEO EDITOR Work Phone: [facility] 08-08-2024 13:22-0400 Heart rate 88 /min Luis E Mudrakola DO Work Phone: [facility] 08-08-2024 13:22-0400 Respiratory rate 24 /min Luis E Mudrakola DO Work Phone: [facility] 08-08-2024 13:22-0400 SaO2% (BldA) [Mass fraction] 92 % Luis E Mudrakola DO Work Phone: [facility] 08-08-2024 08:14-0400 Body temperature 97.2 [degF] Luis E Mudrakola DO Work Phone: [facility] 08-08-2024 08:14-0400 Diastolic blood pressure 64 mm[Hg] Luis E Mudrakola DO Work Phone: [facility] 08-08-2024 08:14-0400 Systolic blood pressure 99 mm[Hg] Luis E Mudrakola DO Work Phone: [facility] 08-06-2024 14:25-0400 Body height 162.6 cm Luis E Keating DO Work Phone: [facility] 08-03-2024 21:01-0400 Body mass index (BMI) [Ratio] 15.29 kg/m2 Luis E Glaserla DO Work Phone: [facility] 08-03-2024 21:01-0400 Body weight 40.4 kg Luis E Keating DO Work Phone: [facility] 07-30-2024 14:53-0400 Body height 164.1 cm Herminia Case MD Work Phone: [facility] 07-30-2024 14:53-0400 Body mass index (BMI) [Ratio] 15.08 kg/m2 Herminia Case MD Work Phone: [facility] 07-30-2024 14:53-0400 Body temperature 98.4 [degF] Herminia Case MD Work Phone: [facility] 07-30-2024 14:53-0400 Body weight 40.6 kg Herminia Case MD Work Phone: [facility] 07-30-2024 14:53-0400 Diastolic blood pressure 78 mm[Hg] Herminia Case MD Work Phone: [facility] 07-30-2024 14:53-0400 Heart rate 106 /min Herminia Case MD Work Phone: [facility] 07-30-2024 14:53-0400 SaO2% (BldA) [Mass fraction] 82 % Herminia Case MD Work Phone: [facility] 07-30-2024 14:53-0400 Systolic blood pressure 120 mm[Hg] Herminia Case MD Work Phone: [facility] 04-28-2024 01:19-0500 Diastolic blood pressure 78 mm[Hg] Flako Altamirano MD Work Phone: [facility] 04-28-2024 01:19-0500 Heart rate 87 /min Flako Altamirano MD Work Phone: [facility] 04-28-2024 01:19-0500 Respiratory rate 16 /min Flako Altamirano MD Work Phone: [facility] 04-28-2024 01:19-0500 SaO2% (BldA) [Mass fraction] 96 % Flako Altamirano MD Work Phone: [facility] 04-28-2024 01:19-0500 Systolic blood pressure 119 mm[Hg] Flako Altamirano MD Work Phone: [facility] 04-27-2024 23:43-0500 Body height 160 cm Flako Altamirano MD Work Phone: [facility] 04-27-2024 23:43-0500 Body mass index (BMI) [Ratio] 19.13 kg/m2 Flako Altamirano MD Work Phone: [facility] 04-27-2024 23:43-0500 Body temperature 98.1 [degF] Flako Altamirano MD Work Phone: [facility] 04-27-2024 23:43-0500 Body weight 48.99 kg Flako Altamirano MD Work Phone: [facility] 10-16-2023 21:24-0400 Body temperature 98.1 [degF] Herminia Case MD Work Phone: [facility] 10-16-2023 21:24-0400 Diastolic blood pressure 95 mm[Hg] Herminia Case MD Work Phone: [facility] 10-16-2023 21:24-0400 Heart rate 99 /min Herminia Case MD Work Phone: [facility] 10-16-2023 21:24-0400 Respiratory rate 14 /min Herminia Case MD Work Phone: [facility] 10-16-2023 21:24-0400 SaO2% (BldA) [Mass fraction] 94 % Herminia Case MD Work Phone: [facility] 10-16-2023 21:24-0400 Systolic blood pressure 125 mm[Hg] Herminia Case MD Work Phone: [facility] 09-22-2023 07:58-0400 Body temperature 97.39 [degF] Jono Weathers MD Work Phone: [facility] 09-22-2023 07:58-0400 Diastolic blood pressure 96 mm[Hg] Jono Weathers MD Work Phone: [facility] 09-22-2023 07:58-0400 Heart rate 99 /min Jono Weathers MD Work Phone: [facility] 09-22-2023 07:58-0400 Respiratory rate 17 /min Jono Weathers MD Work Phone: [facility] 09-22-2023 07:58-0400 SaO2% (BldA) [Mass fraction] 96 % Jono Weathers MD Work Phone: [facility] 09-22-2023 07:58-0400 Systolic blood pressure 140 mm[Hg] Jono Weathers MD Work Phone: [facility] 09-20-2023 15:22-0400 Body height 165.1 cm Jono Weathers MD Work Phone: [facility] 09-20-2023 15:22-0400 Body mass index (BMI) [Ratio] 19.14 kg/m2 Jono Weathers MD Work Phone: [facility] 09-20-2023 15:22-0400 Body weight 52.16 kg Jono Weathers MD Work Phone: [facility] 09-08-2023 15:40-0400 Body height 164.1 cm Barbi Goldberg MD Work Phone: [facility] 09-08-2023 15:40-0400 Body mass index (BMI) [Ratio] 20.61 kg/m2 Barbi Goldberg MD Work Phone: [facility] 09-08-2023 15:40-0400 Body temperature 99.3 [degF] Barbi Goldberg MD Work Phone: [facility] 09-08-2023 15:40-0400 Body weight 55.5 kg Barbi Goldberg MD Work Phone: [facility] 09-08-2023 15:40-0400 Diastolic blood pressure 87 mm[Hg] Barbi Goldberg MD Work Phone: [facility] 09-08-2023 15:40-0400 Heart rate 105 /min Barbi Goldberg MD Work Phone: [facility] 09-08-2023 15:40-0400 SaO2% (BldA) [Mass fraction] 92 % Barbi Goldberg MD Work Phone: [facility] 09-08-2023 15:40-0400 Systolic blood pressure 139 mm[Hg] Barbi Goldberg MD Work Phone: [facility] 08-07-2023 18:00-0400 Diastolic blood pressure 79 mm[Hg] Herminia Case MD Work Phone: [facility] 08-07-2023 18:00-0400 Heart rate 97 /min Herminia Case MD Work Phone: [facility] 08-07-2023 18:00-0400 Respiratory rate 23 /min Herminia Case MD Work Phone: [facility] 08-07-2023 18:00-0400 SaO2% (BldA) [Mass fraction] 92 % Herminia Case MD Work Phone: [facility] 08-07-2023 18:00-0400 Systolic blood pressure 137 mm[Hg] Herminia Case MD Work Phone: [facility] 08-07-2023 14:41-0400 Body mass index (BMI) [Ratio] 20.8 kg/m2 Herminia Case MD Work Phone: [facility] 08-07-2023 14:41-0400 Body temperature 98.01 [degF] Herminia Case MD Work Phone: [facility] 08-07-2023 14:41-0400 Body weight 56.7 kg Herminia Case MD Work Phone: [facility] 05-02-2023 14:31-0500 Body height 164.1 cm Herminia Case MD Work Phone: [facility] 05-02-2023 14:31-0500 Body temperature 98.1 [degF] Herminia Case MD Work Phone: [facility] 05-02-2023 14:31-0500 Body weight 60.1 kg Herminia Case MD Work Phone: [facility] 05-02-2023 14:31-0500 Diastolic blood pressure 78 mm[Hg] Herminia Case MD Work Phone: [facility] 05-02-2023 14:31-0500 Heart rate 87 /min Herminia Case MD Work Phone: [facility] 05-02-2023 14:31-0500 SaO2% (BldA) [Mass fraction] 90 % Herminia Case MD Work Phone: [facility] 05-02-2023 14:31-0500 Systolic blood pressure 112 mm[Hg] Herminia Case MD Work Phone: [facility] 02-18-2023 09:31-0500 Body temperature 98.01 [degF] Lorenzo Orozco MD Work Phone: [facility] 02-18-2023 09:31-0500 Diastolic blood pressure 76 mm[Hg] Lorenzo Orozco MD Work Phone: [facility] 02-18-2023 09:31-0500 Heart rate 87 /min Lorenzo Orozco MD Work Phone: [facility] 02-18-2023 09:31-0500 Respiratory rate 20 /min Lorenzo Orozco MD Work Phone: [facility] 02-18-2023 09:31-0500 SaO2% (BldA) [Mass fraction] 97 % Lorenzo Orozco MD Work Phone: [facility] 02-18-2023 09:31-0500 Systolic blood pressure 128 mm[Hg] Lorenzo Orozco MD Work Phone: [facility] 02-14-2023 10:00-0500 Body mass index (BMI) [Ratio] 22.47 kg/m2 Lorenzo Orozco MD Work Phone: [facility] 02-14-2023 10:00-0500 Body weight 61.24 kg Lorenzo Orozco MD Work Phone: [facility] 02-13-2023 19:05-0500 Body height 165.1 cm Lorenzo Orozco MD Work Phone: [facility] 01-14-2023 16:00-0400 Body height 164.1 cm Herminia Case MD Work Phone: [facility] 01-14-2023 16:00-0400 Body temperature 97.59 [degF] Herminia Case MD Work Phone: [facility] 01-14-2023 16:00-0400 Body weight 62.14 kg Herminia Case MD Work Phone: [facility] 01-14-2023 16:00-0400 Diastolic blood pressure 70 mm[Hg] Herminia Case MD Work Phone: [facility] 01-14-2023 16:00-0400 Heart rate 83 /min Herminia Case MD Work Phone: [facility] 01-14-2023 16:00-0400 SaO2% (BldA) [Mass fraction] 93 % Herminia Case MD Work Phone: [facility] 01-14-2023 16:00-0400 Systolic blood pressure 100 mm[Hg] Herminia Case MD Work Phone: [facility] 11-08-2022 08:37-0400 Heart rate 87 /min Austyn Mccann DO Work Phone: [facility] 11-08-2022 08:37-0400 Respiratory rate 16 /min Austyn Mccann DO Work Phone: [facility] 11-08-2022 08:37-0400 SaO2% (BldA) [Mass fraction] 97 % Austyn Mccann DO Work Phone: [facility] 11-08-2022 07:29-0400 Body temperature 97.81 [degF] Austyn Mccann DO Work Phone: [facility] 11-08-2022 07:29-0400 Diastolic blood pressure 63 mm[Hg] Austyn Mccann DO Work Phone: [facility] 11-08-2022 07:29-0400 Systolic blood pressure 108 mm[Hg] Austyn Mccann DO Work Phone: [facility] 11-06-2022 18:36-0400 Body height 162.6 cm Austyn Mccann DO Work Phone: [facility] 11-06-2022 18:36-0400 Body mass index (BMI) [Ratio] 22.31 kg/m2 Austyn Mccann DO Work Phone: [facility] 11-06-2022 18:36-0400 Body weight 58.97 kg Austyn Mccann DO Work Phone: [facility] 10-20-2022 14:06-0400 Body height 160 cm Kisha Afshin SYSTEMS ANALYSIS MANAGER - NAILING MACHINE OPERATOR Work Phone: [facility] 10-20-2022 14:06-0400 Body mass index (BMI) [Ratio] 23.56 kg/m2 Kisha Afshin SYSTEMS ANALYSIS MANAGER - NAILING MACHINE OPERATOR Work Phone: [employer] 10-20-2022 14:06-0400 Body weight 60.33 kg Kisha Afshin SYSTEMS ANALYSIS MANAGER - NAILING MACHINE OPERATOR Work Phone: [employer] [facility] 10-20-2022 14:06-0400 Diastolic blood pressure 83 mm[Hg] Kisha Afshin SYSTEMS ANALYSIS MANAGER - NAILING MACHINE OPERATOR Work Phone: [facility] 10-20-2022 14:06-0400 Heart rate 96 /min Kisha Pepe SYSTEMS ANALYSIS MANAGER - NAILING MACHINE OPERATOR Work Phone: [facility] 10-20-2022 14:06-0400 Systolic blood pressure 143 mm[Hg] Kihsa Pepe SYSTEMS ANALYSIS MANAGER - NAILING MACHINE OPERATOR Work Phone: [facility] 09-15-2022 14:40-0400 Body height 165.1 cm Melva Ladonna PA-C Work Phone: [facility] 09-15-2022 14:40-0400 Body temperature 97.3 [degF] Melva Ladonna PA-C Work Phone: [facility] 09-15-2022 14:40-0400 Body weight 61.1 kg Melva Innis PA-C Work Phone: [facility] 09-15-2022 14:40-0400 Diastolic blood pressure 78 mm[Hg] Melva Ladonna PA-C Work Phone: [facility] 09-15-2022 14:40-0400 Heart rate 101 /min Melva Ladonna PA-C Work Phone: [facility] 09-15-2022 14:40-0400 SaO2% (BldA) [Mass fraction] 95 % Melva Ladonna PA-C Work Phone: [facility] 09-15-2022 14:40-0400 Systolic blood pressure 133 mm[Hg] Melva Innis PA-C Work Phone: [facility] 05-24-2022 07:52-0500 Heart rate 98 /min Martha Flores MD Work Phone: [facility] 05-24-2022 07:52-0500 Respiratory rate 16 /min Martha Flores MD Work Phone: [facility] 05-24-2022 07:52-0500 SaO2% (BldA) [Mass fraction] 92 % Martha Flores MD Work Phone: [facility] [employer] 05-24-2022 07:24-0500 Body temperature 98.49 [degF] Martha Flores MD Work Phone: [facility] [employer] 05-24-2022 07:24-0500 Diastolic blood pressure 73 mm[Hg] Martha Flores MD Work Phone: [facility] [employer] 05-24-2022 07:24-0500 Systolic blood pressure 126 mm[Hg] Martha Flores MD Work Phone: [facility] [employer] 05-22-2022 05:38-0500 Body mass index (BMI) [Ratio] 24.32 kg/m2 Martha Flores MD Work Phone: [facility] [employer] 05-22-2022 05:38-0500 Body weight 66.3 kg Martha Flores MD Work Phone: [facility] [employer] 05-21-2022 17:58-0500 Body height 165.1 cm Martha Flores MD Work Phone: [facility] [employer] 04-21-2022 14:05-0500 Body height 165.1 cm Sally Aj SYSTEMS ANALYSIS MANAGER - NAILING MACHINE OPERATOR Work Phone: [facility] [employer] 04-21-2022 14:05-0500 Body mass index (BMI) [Ratio] 23.63 kg/m2 Sally Aj SYSTEMS ANALYSIS MANAGER - NAILING MACHINE OPERATOR Work Phone: [facility] [employer] 04-21-2022 14:05-0500 Body weight 64.41 kg Sally Riojasher SYSTEMS ANALYSIS MANAGER - NAILING MACHINE OPERATOR Work Phone: [facility] [employer] 04-21-2022 14:05-0500 Diastolic blood pressure 78 mm[Hg] Sally Aj SYSTEMS ANALYSIS MANAGER - NAILING MACHINE OPERATOR Work Phone: [facility] [employer] 04-21-2022 14:05-0500 Heart rate 93 /min Sally Riojasher SYSTEMS ANALYSIS MANAGER - NAILING MACHINE OPERATOR Work Phone: [facility] [employer] 04-21-2022 14:05-0500 Systolic blood pressure 122 mm[Hg] Sally Rocha SYSTEMS ANALYSIS MANAGER - NAILING MACHINE OPERATOR Work Phone: [facility] 08-06-2021 17:18-0400 Heart rate 96 /min Herminia Case MD Work Phone: [facility] 08-06-2021 17:18-0400 SaO2% (BldA) [Mass fraction] 84 % Herminia Case MD Work Phone: [facility] 08-06-2021 16:44-0400 Diastolic blood pressure 74 mm[Hg] Herminia Case MD Work Phone: [facility] 08-06-2021 16:44-0400 Systolic blood pressure 124 mm[Hg] Herminia Case MD Work Phone: [facility] 08-06-2021 16:35-0400 Body temperature 98.8 [degF] Herminia Case MD Work Phone: [facility] 08-06-2021 16:35-0400 Body weight 58.79 kg Herminia Case MD Work Phone: [facility] 10-16-2020 14:42-0400 Body temperature 98.49 [degF] Herminia Case MD Work Phone: [facility] Work Phone: 10-16-2020 14:42-0400 Diastolic blood pressure 79 mm[Hg] Herminia Case MD Work Phone: [facility] Work Phone: 10-16-2020 14:42-0400 Heart rate 85 /min Herminia Case MD Work Phone: [facility] Work Phone: 10-16-2020 14:42-0400 Respiratory rate 20 /min Herminia Case MD Work Phone: [facility] Work Phone: 10-16-2020 14:42-0400 SaO2% (BldA) [Mass fraction] 91 % Herminia Case MD Work Phone: [facility] Work Phone: 10-16-2020 14:42-0400 Systolic blood pressure 117 mm[Hg] Herminia Case MD Work Phone: [facility] Work Phone: 03-16-2020 16:32-0500 BP Diastolic 83 mm[Hg] [facility] [place] 03-16-2020 16:32-0500 BP Systolic 133 mm[Hg] [facility] [place] 03-16-2020 16:32-0500 Pulse (Heart Rate) 101 /min [facility] [place] 03-16-2020 16:32-0500 Pulse Oximetry 94 % [facility] [place] 03-16-2020 16:32-0500 Respiratory Rate 20 /min [facility] [place] 03-16-2020 11:57-0500 BMI (Body Mass Index) 23.17 kg/m2 [facility] [place] 03-16-2020 11:57-0500 Body Temperature 98.8 [degF] [facility], [place] 03-16-2020 11:57-0500 Body weight 61.24 kg [facility] [place] 02-22-2020 09:21-0500 BP Diastolic 72 mm[Hg] Ziyad Menendez [facility] , [place] 02-22-2020 09:21-0500 BP Systolic 102 mm[Hg] Ziyad Menendez [facility] [place] 02-22-2020 09:21-0500 Pulse (Heart Rate) 98 /min Ziyad Menendez [facility] [place] 02-22-2020 09:21-0500 Pulse Oximetry 92 % Ziyad Menendez [facility] [place] 02-22-2020 09:21-0500 Respiratory Rate 16 /min [facility] [place] 02-22-2020 09:07-0500 BMI (Body Mass Index) 23.52 kg/m2 Ziyad Menendez [facility] [place] 02-22-2020 09:07-0500 Body weight 62.14 kg Ziyad Menendez [facility] [place] 02-22-2020 09:07-0500 Height 162.6 cm Ziyad Alicia [facility] , [place] 02-21-2020 14:47-0500 Body Temperature 97.59 [degF] Ziyad Alicia [facility] , [place] 02-21-2020 14:47-0500 BP Diastolic 74 mm[Hg] Ziyad Alicia [facility] , [place] 02-21-2020 14:47-0500 BP Systolic 113 mm[Hg] Ziyad Alicia [facility] , [place] 02-21-2020 14:47-0500 Pulse (Heart Rate) 90 /min Ziyad Alicia [facility], [place] 02-21-2020 14:47-0500 Respiratory Rate 20 /min [facility], [place] 02-08-2020 09:28-0500 BMI (Body Mass Index) 23.48 kg/m2 Ziyad Alicia [facility], [place] 02-08-2020 09:28-0500 Body Temperature 98.6 [degF] [facility], [place] 02-08-2020 09:28-0500 Body weight 62.05 kg [facility] , [place] 02-08-2020 09:28-0500 BP Diastolic 81 mm[Hg] [facility] , [place] 02-08-2020 09:28-0500 BP Systolic 98 mm[Hg] [facility] , [place] 02-08-2020 09:28-0500 Height 162.6 cm Ziyad Alicia [facility] , [place] 02-08-2020 09:28-0500 Pulse (Heart Rate) 104 /min Ziyad Alicia [facility], [place] 02-08-2020 09:28-0500 Pulse Oximetry 91 % [facility] , [place] 02-08-2020 09:28-0500 Respiratory Rate 16 /min [facility], [place] 02-01-2020 09:08-0500 BMI (Body Mass Index) 23.49 kg/m2 Ziyad Alicia [facility], [place] 02-01-2020 09:08-0500 Body weight 62.41 kg [facility] , [place] 02-01-2020 09:08-0500 Height 163 cm Ziyad Alicia [facility] , [place] 01-31-2020 14:04-0500 Body Temperature 97.9 [degF] Ziyad Alicia [facility] , [place] 01-31-2020 14:04-0500 BP Diastolic 82 mm[Hg] Ziyad Alicia [facility] , [place] 01-31-2020 14:04-0500 BP Systolic 117 mm[Hg] Ziyad Alicia [facility] , [place] 01-31-2020 14:04-0500 Pulse (Heart Rate) 109 /min Ziyad Alicia [facility], [place] 01-31-2020 14:04-0500 Respiratory Rate 20 /min Ziyad Alicia [facility], [place] 01-25-2020 09:25-0500 Body Temperature 99.19 [degF] Ziyad Alicia [facility], [place] 01-25-2020 09:25-0500 BP Diastolic 80 mm[Hg] Ziyad Menendez [facility] [place] 01-25-2020 09:25-0500 BP Systolic 113 mm[Hg] [facility] , [place] 01-25-2020 09:25-0500 Pulse (Heart Rate) 104 /min Ziyad Alicia [facility], [place] 01-25-2020 09:25-0500 Pulse Oximetry 93 % Ziyad Alicia [facility] , [place] 01-25-2020 09:25-0500 Respiratory Rate 16 /min Ziyad Alicia [facility], [place] 01-25-2020 09:21-0500 BMI (Body Mass Index) 23.22 kg/m2 Ziyad Alicia [facility], [place] 01-25-2020 09:21-0500 Body weight 61.69 kg [facility] , [place] 01-25-2020 09:21-0500 Height 163 cm Ziyad Alicia [facility] , [place] 01-24-2020 09:25-0500 BMI (Body Mass Index) 23.22 kg/m2 Ziyad Alicia [facility], [place] 01-24-2020 09:25-0500 Body weight 61.69 kg [facility] , [place] 12-19-2019 15:00-0400 BP Diastolic 77 mm[Hg] Ziyad Menendez [facility] [place] 12-19-2019 15:00-0400 BP Systolic 144 mm[Hg] Ziyad Menendez [facility] [place] 12-19-2019 15:00-0400 Pulse (Heart Rate) 92 /min [facility] [place] 12-19-2019 15:00-0400 Pulse Oximetry 99 % Ziyad Menendez [facility] [place] 12-19-2019 15:00-0400 Respiratory Rate 18 /min Ziyad Menendez [facility], [place] 12-19-2019 11:25-0400 BMI (Body Mass Index) 23.46 kg/m2 Ziyad Menendez [facility], [place] 12-19-2019 11:25-0400 Body Temperature 99.5 [degF] Ziyad Menendez [facility], [place] 12-19-2019 11:25-0400 Body weight 63.96 kg Ziyad Menendez [facility] [place] 12-19-2019 11:25-0400 Height 165.1 cm Ziyad Menendez [facility] [place] 11-24-2019 11:45-0400 Body Temperature 98.2 [degF] [facility] [place] [place] 11-24-2019 11:45-0400 BP Diastolic 81 mm[Hg] [facility] [place] 11-24-2019 11:45-0400 BP Systolic 126 mm[Hg] [facility] [place] 11-24-2019 11:45-0400 Pulse (Heart Rate) 90 /min [facility] [place] [place] 11-24-2019 11:45-0400 Pulse Oximetry 97 % [facility], [place] 11-24-2019 11:45-0400 Respiratory Rate 18 /min [facility] [place] [place] 11-22-2019 10:31-0400 Height 165.1 cm [facility] [place] 11-21-2019 21:35-0400 BMI (Body Mass Index) 25.96 kg/m2 [facility], [place] 11-21-2019 21:35-0400 Body weight 70.76 kg [facility], [place] 11-09-2019 22:55-0400 BMI (Body Mass Index) 24.96 kg/m2 [facility] [place] 11-09-2019 22:55-0400 Body Temperature 98.29 [degF] [facility] [place] 11-09-2019 22:55-0400 Body weight 68.04 kg [facility] , [place] Comment on above: from 10/21/19 11-09-2019 22:55-0400 BP Diastolic 72 mm[Hg] [facility] [place] 11-09-2019 22:55-0400 BP Systolic 120 mm[Hg] Tani [facility] , [place] 11-09-2019 22:55-0400 Pulse (Heart Rate) 107 /min [facility] [place] 11-09-2019 22:55-0400 Pulse Oximetry 95 % Tani [facility] , [place] 11-09-2019 22:55-0400 Respiratory Rate 18 /min Tani [facility], [place] 11-05-2019 13:04-0400 BMI (Body Mass Index) 24.96 kg/m2 Ziyad Menendez [facility] [place] 11-05-2019 13:04-0400 Body Temperature 98.49 [degF] Ziyad Menendez [facility], [place] 11-05-2019 13:04-0400 Body weight 68.04 kg Ziyad Menendez [facility] [place] 11-05-2019 13:04-0400 BP Diastolic 83 mm[Hg] Ziyad Menendez [facility] [place] 11-05-2019 13:04-0400 BP Systolic 124 mm[Hg] Ziyad Menendez [facility] [place] 11-05-2019 13:04-0400 Height 165.1 cm Ziyad Menendez [facility] [place] 11-05-2019 13:04-0400 Pulse (Heart Rate) 92 /min Ziyad Menendez [facility] [place] 11-05-2019 13:04-0400 Pulse Oximetry 89 % Ziyad Menendez [facility] [place] 11-05-2019 13:04-0400 Respiratory Rate 16 /min [facility], [place] 10-27-2019 17:39-0400 BP Diastolic 82 mm[Hg] [facility] , [place] 10-27-2019 17:39-0400 BP Systolic 129 mm[Hg] Ankit [facility] , [place] 10-27-2019 17:39-0400 Pulse (Heart Rate) 87 /min Ankit [facility], [place] 10-27-2019 17:39-0400 Pulse Oximetry 95 % Ankit [facility] , [place] 10-27-2019 17:39-0400 Respiratory Rate 18 /min [facility] [place] 10-27-2019 15:07-0400 Body Temperature 98.2 [degF] Ankit [facility], [place] 10-27-2019 15:04-0400 BMI (Body Mass Index) 24.96 kg/m2 Ankit [facility], [place] 10-27-2019 15:04-0400 Body weight 68.04 kg Ankit [facility] , [place] 10-27-2019 15:04-0400 Height 165.1 cm Ankit [facility] , [place] 10-21-2019 23:01-0400 BP Diastolic 99 mm[Hg] [facility] , [place] 10-21-2019 23:01-0400 BP Systolic 152 mm[Hg] [facility] , [place] 10-21-2019 23:01-0400 Pulse (Heart Rate) 86 /min [facility], [place] 10-21-2019 23:01-0400 Pulse Oximetry 95 % [facility] , [place] 10-21-2019 23:01-0400 Respiratory Rate 18 /min [facility], [place] 10-21-2019 19:59-0400 BMI (Body Mass Index) 24.96 kg/m2 [facility], [place] 10-21-2019 19:59-0400 Body Temperature 98.29 [degF] Jaspreet [place], [place] 10-21-2019 19:59-0400 Body weight 68.04 kg Jaspreet [place], [place] 08-04-2019 09:35-0400 Pulse Oximetry 95 % Joanie [place], [place] 08-04-2019 09:35-0400 Respiratory Rate 18 /min [place], [place] 08-04-2019 09:08-0400 Body Temperature 98.1 [degF] [place], [place] 08-04-2019 09:08-0400 BP Diastolic 74 mm[Hg] [place], [place] 08-04-2019 09:08-0400 BP Systolic 120 mm[Hg] [place] 08-04-2019 09:08-0400 Pulse (Heart Rate) 66 /min [place] 08-02-2019 20:51-0400 BMI (Body Mass Index) 23.3 kg/m2 [place] 08-02-2019 20:51-0400 Body weight 63.5 kg [place], [place] 08-02-2019 20:51-0400 Height 165.1 cm [place] Encounters Encounter Date Encounter Type Care Provider Facility Start: 01-28-2025 ambulatory Jameson STALLINGS Faci lity:[facility] Start: 01-24-2025 End: 01-24-2025 Telephone encounter Pradeep Ashraf BOTT[employer] ST[employer] T[employer]ER [facility] Resp Therapy Start: 01-12-2025 End: 01-22-2025 Evaluation and management of inpatient Freddy Linder MD Work Phone: [facility] Medical Surgical Unit MSU 4S Comment on above: COPD exacerbation (H CC) (Primary Dx); Respiratory acidosis; Hypoxia; Tachycardia; DDD (degenerative disc disease), cervical Start: 12-28-2024 End: 12-28-2024 Telephone encounter Elyssa Tesfaye NP Work Phone: [facility] Start: 12-28-2024 End: 12-28-2024 Office outpatient visit 25 minutes Elyssa Tesfaye NP Work Phone: [facility] Comment on above: Centrilobular emphys yanna (HCC) (Primary Dx); Chronic respiratory failure with hypoxia (HCC); History of tobacco abuse; Severe malnutrition (CMS/HCC) (HCC); Pulmonary nodule Start: 12-28-2024 End: 12-28-2024 [facility] Start: 12-18-2024 End: 01-03-2025 Telephone encounter Desiree Redding RN [facility] Clinical Communication Start: 12-12-2024 Registered Referred Jameson Corral - Bobby TYSON Start: 12-12-2024 End: 12-12-2024 ambulatory Jameson STALLINGS Facility:[facility] Start: 11-20-2024 End: 11-20-2024 [facility] Start: 11-20-2024 End: 11-20-2024 Subsequent hospital visit by physician Elyssa Tesfaye FILM AND VIDEO EDITOR Work Phone: [facility] Comment on above: Chronic obstructive pulmonary disease with acute lower respiratory infection (HCC) Start: 10-24-2024 End: 10-24-2024 [facility] Start: 10-01-2024 ambulatory Jameson STALLINGS Faci lity:[facility] Start: 10-01-2024 Registered Referred [facility] [employer] Start: 09-17-2024 End: 09-17-2024 ambulatory Jameson STALLINGS -[place] [employer] Start: 09-17-2024 End: 09-17-2024 Departed Referred Jameson [place]ral [facility] [employer] Start: 09-17-2024 Registered Referred Jameson [facility] [employer] [facility] Start: 09-17-2024 End: 09-17-2024 ambulatory Jameson STALLINGS Facility:[facility] Start: 09-14-2024 End: 09-14-2024 ambulatory Jameson STALLINGS -[place] [employer] [facility] Start: 09-14-2024 End: 09-14-2024 Departed Referred Jameson [facility] [facility] Start: 09-14-2024 End: 09-14-2024 ambulatory Jameson STALLINGS Facility:[facility] Start: 09-07-2024 End: 09-11-2024 Refill Herminia Case MD Work Phone: [facility] Comment on above: Refill Request Start: 09-07-2024 End: 09-07-2024 Telephone encounter Ziyad Menendez MD Work Phone: [facility] Gynecologic On[facility] - [place] Start: 09-06-2024 End: 09-06-2024 ambulatory Ziyad Menendez MD Work Phone: [facility] Comment on above: Other specified comp lication of vascular prosthetic devices, implants and grafts, initial encounter (HCC) (Primary Dx); Poor venous access Start: 08-22-2024 End: 09-03-2024 Refill Herminia Case MD Work Phone: [facility] Comment on above: Refill Request Start: 08-20-2024 End: 08-20-2024 Office outpatient visit 25 minutes Elyssa Tesfaye NP Work Phone: [facility] Comment on above: Hospital discharge f ollow-up (Primary Dx); Acute on chronic respiratory failure with hypoxia (HCC); Centrilobular emphysema (HCC); Aspiration pneumonia of left lower lobe, unspecified aspiration pneumonia type (HCC); Chronic obstructive pulmonary disease with acute lower respiratory infection (HCC); History of tobacco abuse; Severe malnutrition (CMS/HCC) (HCC) Start: 08-20-2024 End: 08-20-2024 ambulatory ELYSSA TESFAYE [facility] Start: 08-18-2024 End: 08-24-2024 Refill Herminia Case MD Work Phone: [facility] Comment on above: Refill Request Start: 08-15-2024 ambulatory Jameson STALLINGS Faci lity:[facility] Start: 08-13-2024 End: 08-14-2024 Refill Melva Juárez PA-C Work Phone: [facility] Comment on above: Refill Request Start: 08-08-2024 End: 08-08-2024 Orders Only Melva Garcia RN [facility] Palliative [facility] Comment on above: Chronic obstructive pulmonary disease, unspecified COPD type (HCC) (Primary Dx); Severe malnutrition (CMS/HCC) (HCC) Start: 07-30-2024 End: 08-08-2024 Evaluation and management of inpatient Luis E Keating DO Work Phone: [facility] Cardiac Progressive Care Unit PCU 2E Comment on above: Adult failure to thr kenton (Primary Dx); Severe protein-calorie malnutrition (HCC); Closed supracondylar fracture of left humerus, initial encounter; Severe malnutrition (CMS/HCC) (HCC); Pulmonary emphysema, unspecified emphysema type (HCC); Chronic obstructive pulmonary disease, unspecified COPD type (HCC) Start: 07-30-2024 End: 07-30-2024 Office outpatient visit 25 minutes Herminia Case MD Work Phone: [facility] Comment on above: Chronic respiratory failure with hypoxia (HCC) (Primary Dx); Centrilobular emphysema (HCC); Adult failure to thrive; Severe protein-calorie malnutrition (HCC) Start: 07-30-2024 End: 07-30-2024 ambulatory HERMINIA CASE Facility:[facility] Start: 07-22-2024 End: 07-23-2024 Refill Herminia Case MD Work Phone: [facility] Comment on above: Refill Request Start: 06-30-2024 End: 07-02-2024 Telephone encounter Herminia Case MD Work Phone: [facility] Comment on above: Orders Start: 06-26-2024 End: 06-26-2024 Refill Melva Juárez PA-C Work Phone: [facility] Comment on above: Refill Request Start: 06-07-2024 End: 06-07-2024 Telephone encounter Maddi Valero LPN Work Phone: [facility] Comment on above: Home Care (SOC appro martín.) Home Care (Confirmat ion call.) Start: 06-06-2024 End: 06-06-2024 ambulatory HERMINIA CASE Facility:[facility] Start: 06-06-2024 End: 06-06-2024 Telemedicine consultation with patient Herminia Case MD Work Phone: [facility] Start: 06-06-2024 End: 06-06-2024 Telephone encounter Herminia Case MD Work Phone: [facility] Comment on above: Home Care Panlobular emphysema (HCC) (Primary Dx); Moderate episode of recurrent major depressive disorder (HCC); Chronic respiratory failure with hypoxia (HCC) Start: 05-26-2024 End: 05-28-2024 Refill Herminia Case MD Work Phone: [facility] Comment on above: Refill Request Start: 05-22-2024 End: 06-22-2024 ambulatory Herminia Case MD Work Phone: [facility] Start: 05-08-2024 End: 05-10-2024 Refill Melva Juárez PA-C Work Phone: [facility] Comment on above: Refill Request Start: 05-02-2024 End: 05-02-2024 [facility] Herminia Case MD Work Phone: [facility] Comment on above: Compression fracture of body of thoracic vertebra (HCC) (Primary Dx); Panlobular emphysema (HCC); Moderate episode of recurrent major depressive disorder (HCC); PAUL (generalized anxiety disorder); Chronic respiratory failure with hypoxia (HCC); Hyperlipidemia, mixed; Hyperglycemia; Other closed nondisplaced fracture of proximal end of right humerus with routine healing, subsequent encounter Start: 04-30-2024 End: 05-01-2024 Refill Herminia Case MD Work Phone: [facility] Comment on above: Refill Request Start: 04-27-2024 End: 04-28-2024 Emergency department patient visit Flako Altamirano MD Work Phone: [facility] ED Comment on above: Contusion of face, i nitial encounter (Primary Dx) Start: 04-23-2024 End: 04-24-2024 ambulatory Melva Juárez PA-C Work Phone: [facility] Comment on above: Copd meds Start: 04-06-2024 End: 04-06-2024 Refill Herminia Case MD Work Phone: [facility] Comment on above: Refill Request Start: 03-31-2024 End: 04-03-2024 Refill Herminia Case MD Work Phone: [facility] Comment on above: Refill Request Start: 03-18-2024 End: 03-20-2024 Refill Melva Juárez PA-C Work Phone: [facility] Comment on above: Refill Request Start: 03-10-2024 End: 03-12-2024 Refill Melva Juárez PA-C Work Phone: [facility] Comment on above: Refill Request Start: 03-09-2024 End: 03-09-2024 Refill Herminia Case MD Work Phone: [facility] Comment on above: Refill Request Start: 03-04-2024 End: 03-06-2024 Refill Herminia Case MD Work Phone: [facility] Comment on above: Refill Request Start: 03-01-2024 End: 03-05-2024 Telephone encounter Herminia Case MD Work Phone: [facility] Comment on above: Medication Problem Start: 02-06-2024 End: 02-07-2024 ambulatory Melva Juárez PA-C Work Phone: [facility] Comment on above: [place] Refill Request Start: 01-11-2024 End: 01-11-2024 Refill Brando Simon MD Work Phone: [facility] Comment on above: Refill Request Start: 01-10-2024 End: 01-11-2024 Refill Melva Juárez PA-C Work Phone: [facility] Comment on above: Refill Request Start: 01-09-2024 End: 01-11-2024 Refill Herminia Case MD Work Phone: [facility] Comment on above: Refill Request Copd med Start: 01-08-2024 End: 01-09-2024 Refill Herminia Case MD Work Phone: [facility] Comment on above: Refill Request Start: 12-30-2023 End: 12-30-2023 ambulatory Joaquina Rao [employer] MANAGER.NAILING MACHINE OPERATOR Work Phone: [facility] Comment on above: Panlobular emphysema (HCC) Start: 12-30-2023 End: 12-30-2023 Telemedicine consultation with patient Joaquina Rao SYSTEMS ANALYSIS MANAGER.NAILING MACHINE OPERATOR Work Phone: [facility] Start: 12-27-2023 End: 12-27-2023 Refill Jessica Kong SYSTEMS ANALYSIS MANAGER.NAILING MACHINE OPERATOR Work Phone: [facility] Comment on above: Refill Request Start: 12-27-2023 End: 12-27-2023 Telephone encounter Herminia Case MD Work Phone: [facility] Comment on above: Orders Start: 12-13-2023 End: 12-14-2023 Telephone encounter Herminia Case MD Work Phone: [facility] Comment on above: Results Refill Request Start: 12-06-2023 End: 12-08-2023 Home visit Herminia Case MD Work Phone: [facility] Comment on above: Osteoporotic vertebr al collapse, with routine healing, subsequent encounter (Primary Dx) Start: 12-06-2023 End: 12-06-2023 Telephone encounter Herminia Case MD Work Phone: [facility] Comment on above: Orders Start: 11-28-2023 End: 11-28-2023 Refill Melva Juárez PA-C Work Phone: [facility] Comment on above: Refill Request Start: 11-14-2023 End: 11-15-2023 Telephone encounter Herminia Case MD Work Phone: [facility] Comment on above: Orders Refill Request Start: 11-12-2023 End: 11-12-2023 Refill Melva Juárez PA-C Work Phone: [facility] Comment on above: Refill Request Start: 11-02-2023 Refill Brando leblanc MD Work Phone: [facility] Comment on above: Refill Request Start: 10-28-2023 Telephone encounter Herminia warner MD Work Phone: [facility] Comment on above: Orders Start: 10-22-2023 Telephone encounter Herminia warner MD Work Phone: [address] [place] [address] Comment on above: Patient Update Start: 10-18-2023 Telephone encounter Herminia warner MD Work Phone: [facility] Comment on above: Orders Start: 10-16-2023 End: 10-16-2023 Emergency department patient visit Herminia Case MD Work Phone: [facility] ED Comment on above: Fall, initial encoun ter (Primary Dx); Compression fracture of body of thoracic vertebra (HCC) Start: 10-11-2023 Home visit Herminia Mccurdy Work Phone: [facility] Comment on above: Osteoporotic vertebr al collapse, with routine healing, subsequent encounter (Primary Dx) Start: 10-10-2023 Telephone encounter Herminia warner MD Work Phone: [facility] Comment on above: Orders Start: 10-06-2023 Home visit Herminia Mccurdy Work Phone: [facility] Comment on above: Pathological fractur e of vertebra due to other osteoporosis with routine healing, subsequent encounter (Primary Dx) Start: 10-06-2023 Telephone encounter Herminia warner MD Work Phone: [facility] Comment on above: Home Care (Physical therapy delayed 1 week) Start: 10-06-2023 Unlisted evaluation and management service Herminia Case MD Work Phone: [facility] Comment on above: OPENED IN ERROR (Mariam phillip Dx) Start: 09-21-2023 Telephone encounter Herminia warner MD Work Phone: [facility] Comment on above: Patient Update Start: 09-19-2023 End: 09-22-2023 Evaluation and management of inpatient Jono Weathers MD Work Phone: [facility] Cardiac Progressive Care Unit PCU 2E Comment on above: Near syncope (Primar y Dx); Closed head injury, initial encounter; Fall, initial encounter; Compression fracture of T5 vertebra, initial encounter (HCC); Compression fracture of T7 vertebra, initial encounter (HCC); Compression fracture of T8 vertebra, initial encounter (HCC); Compression fracture of L1 vertebra, initial encounter (HCC) Start: 09-16-2023 Refill Herminia Mccurdy Work Phone: [facility] Comment on above: Refill Request Start: 09-15-2023 Refill Herminia Mccurdy Work Phone: [facility] Comment on above: Refill Request Start: 09-14-2023 Refill Melva silva PA-C Work Phone: [facility] Comment on above: Refill Request Start: 09-08-2023 End: 09-08-2023 ambulatory HERMINIA CASE Facility:[facility] Start: 09-08-2023 End: 09-08-2023 Patient encounter procedure aBrbi Goldberg MD Work Phone: [facility] Comment on above: Herpes zoster withou t complication (Primary Dx) Start: 09-06-2023 Telephone encounter Herminia warner MD Work Phone: [facility] Comment on above: Electronic Communica tion (FAX from [facility] is going to be coming over that needs to be faxed back to them ) Start: 08-20-2023 Refill Herminia Mccurdy Work Phone: [facility] Comment on above: Refill Request Start: 08-07-2023 End: 08-07-2023 Emergency department patient visit Herminia Case MD Work Phone: [facility] ED Comment on above: Bronchitis (Primary Dx); COPD exacerbation (HCC) Start: 08-05-2023 Refill Herminia Mccurdy Work Phone: [facility] Comment on above: Refill Request Start: 07-22-2023 Refill Herminia Mccurdy Work Phone: [facility] Comment on above: Refill Request Start: 07-20-2023 Refill Melva silva PA-C Work Phone: [facility] Comment on above: Refill Request Start: 07-05-2023 ambulatory Herminia Mccurdy Work Phone: [facility] [place] Start: 07-04-2023 Refill Gena Michaels SYSTEMS ANALYSIS MANAGER.NAILING MACHINE OPERATOR Work Phone: [facility] Comment on above: Refill Request Start: 07-03-2023 Refill Gena Michaels SYSTEMS ANALYSIS MANAGER.NAILING MACHINE OPERATOR Work Phone: [facility] Comment on above: Refill Request Start: 06-30-2023 Telephone encounter Herminia warner MD Work Phone: [facility] Comment on above: Medication Problem Start: 06-28-2023 ambulatory Herminia Mccurdy Work Phone: [facility] Comment on above: Breo Start: 06-25-2023 Refill Herminia Mccurdy Work Phone: [facility] Comment on above: Refill Request Start: 06-24-2023 Refill Herminia Mccurdy Work Phone: [facility] Comment on above: Refill Request Start: 06-22-2023 ambulatory Herminia Mccurdy Work Phone: [facility] [place] Start: 06-10-2023 Refill Herminia Mccurdy Work Phone: [facility] Comment on above: Refill Request Start: 06-10-2023 End: 06-10-2023 [facility] Herminia Case MD Work Phone: [facility] Comment on above: Moderate episode of recurrent major depressive disorder (HCC) (Primary Dx); Panlobular emphysema (HCC); Chronic respiratory failure with hypoxia (HCC) Start: 05-26-2023 Refill Herminia Mccurdy Work Phone: [facility] Comment on above: Refill Request Start: 05-25-2023 Telephone encounter Herminia warner MD Work Phone: [facility] Comment on above: Orders Start: 05-20-2023 End: 05-20-2023 [facility] Herminia Case MD Work Phone: [facility] Comment on above: Moderate episode of recurrent major depressive disorder (HCC) (Primary Dx); Panlobular emphysema (HCC) Start: 05-19-2023 Telephone encounter Herminia warner MD Work Phone: [facility] Comment on above: Orders Start: 05-18-2023 Home visit Herminia Mccurdy Work Phone: [facility] Comment on above: Age-related osteopor osis with current pathological fracture of left femur, initial encounter (HCC) (Primary Dx) Start: 05-18-2023 Telephone encounter Herminia warner MD Work Phone: [facility] Comment on above: Orders Start: 05-09-2023 Telephone encounter Herminia warner MD Work Phone: [facility] Comment on above: Orders Start: 05-02-2023 End: 05-02-2023 Patient encounter procedure Herminia Case MD Work Phone: [facility] Comment on above: PAUL (generalized anx iety disorder) (Primary Dx); Medication monitoring encounter; Compression fracture of body of thoracic vertebra (HCC); Other closed nondisplaced fracture of proximal end of right humerus with routine healing, subsequent encounter; Chronic respiratory failure with hypoxia (HCC); Panlobular emphysema (HCC); Moderate episode of recurrent major depressive disorder (HCC) Start: 04-29-2023 Telephone encounter Herminia warner MD Work Phone: [facility] Comment on above: Medication Problem Start: 04-27-2023 ambulatory Herminia Mccurdy Work Phone: [facility] Comment on above: Panic attacks Start: 04-21-2023 Telephone encounter Kisha mccurdy SYSTEMS ANALYSIS MANAGER - NAILING MACHINE OPERATOR Work Phone: [facility] Gynecologic Oncology Start: 04-19-2023 Telephone encounter Herminia warner MD Work Phone: [facility] Comment on above: Orders Start: 03-07-2023 Refill Herminia Mccurdy Work Phone: [facility] Comment on above: Refill Request Start: 02-13-2023 End: 02-18-2023 Evaluation and management of inpatient Lorenzo Orozco MD Work Phone: [facility] AAU 2 Comment on above: Lumbar compression f racture, closed, initial encounter (HCC) (Primary Dx); Fall, initial encounter; Multiple falls; Nondisplaced fracture of neck of left femur (HCC) Start: 02-07-2023 Refill Melva silva PA-C Work Phone: [facility] Comment on above: Refill Request Start: 02-07-2023 Telephone encounter Herminia warner MD Work Phone: [facility] Comment on above: Orders Start: 02-01-2023 ambulatory Agustina Hopson ate [facility] Comment on above: Population Health Na vigation Outreach (/Cologuard reminder ) Start: 01-31-2023 Telephone encounter Herminia warner MD Work Phone: [facility] Comment on above: Orders Start: 01-27-2023 ambulatory [facility]cal [facility] Comment on above: Population Health Na vigation Outreach ([facility]) Start: 01-24-2023 Telephone encounter Herminia warner MD Work Phone: [facility] Comment on above: Orders Start: 01-21-2023 Telephone encounter Herminia warner MD Work Phone: [facility] Comment on above: Orders Start: 01-17-2023 Telephone encounter Herminia warner MD Work Phone: [facility] Comment on above: Orders Start: 01-14-2023 End: 01-14-2023 Patient encounter procedure Herminia Case MD Work Phone: [facility] Comment on above: Compression fracture of [...] Telephone encounter Herminia warner MD Work Phone: [facility] Comment on above: appointment cancella tion Start: 01-05-2023 Telephone encounter Herminia warner MD Work Phone: [facility] Comment on above: Missed Appointment Start: 12-30-2022 Telephone encounter Herminia warner MD Work Phone: [facility] Comment on above: Orders Start: 12-28-2022 Telephone encounter Herminia warner MD Work Phone: [facility] Comment on above: Orders Start: 12-22-2022 Telephone encounter Herminia warner MD Work Phone: [facility] Comment on above: Orders Start: 12-16-2022 Refill Herminia Mccurdy Work Phone: [facility] Comment on above: Refill Request Start: 12-10-2022 Refill Melva E Free land PA-C Work Phone: [facility] Comment on above: Refill Request Start: 12-09-2022 ambulatory Melva Milian land PA-C Work Phone: [facility] Comment on above: cologuard (cologuard ) Start: 12-09-2022 Telephone encounter Herminia warner MD Work Phone: [facility] Comment on above: Orders Start: 12-07-2022 Home visit Herminia Mccurdy Work Phone: [facility] Comment on above: Age-related osteopor osis with current pathological fracture of left femur with routine healing (Primary Dx) Start: 12-07-2022 Telephone encounter Herminia warner MD Work Phone: [facility] Comment on above: Orders Start: 11-29-2022 Telephone encounter Herminia warner MD Work Phone: [facility] Comment on above: Home Care Start: 11-22-2022 Refill Melva Milian land PA-C Work Phone: [facility] Comment on above: Refill Request Start: 2022 Refill Herminia Mccurdy Work Phone: [facility] Comment on above: Refill Request Start: 11-17-2022 Refill Brando leblanc MD Work Phone: [facility] Comment on above: Refill Request Start: 11-15-2022 Refill Herminia Mccurdy Work Phone: [facility] Comment on above: Refill Request Start: 11-07-2022 ambulatory Herminia Mccurdy Work Phone: [facility] Comment on above: Renewals for my Breo and Flonase Start: 11-06-2022 End: 11-08-2022 Evaluation and management of inpatient Austyn Mccann DO Work Phone: [facility] 4S TELEMETRY Comment on above: Closed displaced int ertrochanteric fracture of left femur, initial encounter ([facility]) (Primary Dx) Start: 10-27-2022 Telephone encounter Kisha mccurdy SYSTEMS ANALYSIS MANAGER - NAILING MACHINE OPERATOR Work Phone: [facility] Gynecologic Oncology Start: 10-22-2022 Refill Herminia Mccurdy Work Phone: [facility] Comment on above: Refill Request Start: 10-21-2022 Refill Herminia Mccurdy Work Phone: [facility] Comment on above: Refill Request Start: 10-20-2022 End: 10-20-2022 Office outpatient visit 25 minutes Kisha Pepe SYSTEMS ANALYSIS MANAGER - NAILING MACHINE OPERATOR Work Phone: [facility] Gynecologic Oncology Comment on above: 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); Encounter for screening mammogram for malignant neoplasm of breast Start: 10-15-2022 Refill Jessica warner SYSTEMS ANALYSIS MANAGER.NAILING MACHINE OPERATOR Work Phone: [facility] Comment on above: Refill Request Start: 09-15-2022 End: 09-15-2022 Patient encounter procedure Melva Sandoval PA-C Work Phone: [facility] Comment on above: Panlobular emphysema (HCC) (Primary Dx); COPD (chronic obstructive pulmonary disease) with acute bronchitis (HCC); Hyperlipidemia, mixed; Medication monitoring encounter; Screening for colon cancer; Medication management; Chronic midline low back pain without sciatica; DDD (degenerative disc disease), lumbar; Major depression, recurrent, chronic (HCC) Start: 08-17-2022 ambulatory Herminia Mccurdy Work Phone: Internal Medicine [facility] Start: 07-29-2022 Refill Herminia Mccurdy Work Phone: [facility] Comment on above: Refill Request Start: 07-27-2022 Refill Herminia Mccurdy Work Phone: [facility] Comment on above: Refill Request Start: 07-14-2022 ambulatory Herminia Mccurdy Work Phone: Internal Medicine [facility] Start: 07-02-2022 Telephone encounter Herminia warner MD Work Phone: [facility] Comment on above: Patient Update (Rupinder wilsoned her home OT visit today due to illness ) Start: 07-01-2022 Telephone encounter Herminia warner MD Work Phone: [facility] Comment on above: Orders Start: 06-30-2022 Telephone encounter Herminia warner MD Work Phone: [facility] Comment on above: Medication Problem; Patient Update Start: 06-22-2022 ambulatory Herminia Mccurdy Work Phone: [facility] Comment on above: Sinus Problem Start: 06-22-2022 Refill Melva lovell PA-C Work Phone: [facility] Comment on above: Med Change Request Start: 06-22-2022 Telephone encounter Herminia warner MD Work Phone: [facility] Comment on above: Orders Start: 06-14-2022 Telephone encounter Herminia warner MD Work Phone: [facility] Comment on above: Orders Start: 06-03-2022 End: 06-03-2022 ambulatory Herminia Case MD Work Phone: [facility] Comment on above: Other closed nondisp [...] with patient Herminia Case MD Work Phone: [facility] Start: 06-01-2022 Telephone encounter Herminia warner MD Work Phone: [facility] Comment on above: Orders Start: 05-31-2022 Telephone encounter Herminia warner MD Work Phone: [facility] Comment on above: Home Care Management Start: 05-21-2022 End: 05-24-2022 Emergency department patient visit Martha Flores MD Work Phone: [facility] Comment on above: Fall, initial encoun ter (Primary Dx); Facial laceration, initial encounter; Closed fracture of neck of right humerus, initial encounter; Humeral head fracture, right, closed, initial encounter Start: 05-06-2022 Refill Donovan montes MD Work Phone: [facility] Comment on above: Refill Request Start: 04-21-2022 End: 04-21-2022 Office outpatient visit 15 minutes Sally Alvarez CNP Work Phone: [facility] [place] CULINARY WORKER Oncology Comment on above: 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) Start: 04-19-2022 Refill Herminia Mccurdy Work Phone: [facility] Comment on above: Refill Request Start: 04-07-2022 Refill Herminia Mccurdy Work Phone: [facility] Comment on above: Refill Request Start: 04-06-2022 ambulatory [facility]cal [facility] Comment on above: Population Health Na vigation Outreach [facility] Start: 03-08-2022 Refill Melva lovell PA-C Work Phone: [facility] Comment on above: Refill Request Start: 03-05-2022 End: 03-05-2022 ambulatory Melva Sandoval PA-C Work Phone: [facility] Comment on above: COPD (chronic obstru ctive pulmonary disease) with acute bronchitis (HCC) (Primary Dx); DDD (degenerative disc disease), lumbar; Major depression, recurrent, chronic (HCC) Start: 03-05-2022 End: 03-05-2022 Telemedicine consultation with patient Melva Sandoval PA-C Work Phone: [facility] Start: 03-05-2022 Telephone encounter Melva Sandoval PA-C Work Phone: [facility] Comment on above: Appointment Start: 03-03-2022 Telephone encounter Herminia warner MD Work Phone: [facility] Comment on above: Orders Start: 02-16-2022 ambulatory Herminia Mccurdy Work Phone: [facility] Start: 02-08-2022 ambulatory Herminia Mccurdy Work Phone: [facility] Comment on above: Muscle relaxer Refill Request Start: 02-01-2022 ambulatory Herminia Mccurdy Work Phone: [facility] Comment on above: Nurse Triage Call Start: 01-29-2022 ambulatory Macarena leblanc SYSTEMS ANALYSIS MANAGER.NAILING MACHINE OPERATOR Work Phone: [facility]icine Comment on above: Other acute sinusiti s, recurrence not specified (Primary Dx) Start: 01-13-2022 Refill Herminia Mccurdy Work Phone: [facility] Comment on above: Refill Request Start: 12-09-2021 ambulatory Herminia Case [facility] Start: 12-08-2021 ambulatory Herminia Mccurdy Work Phone: [facility] Comment on above: Breo Start: 11-26-2021 Refill Herminia Mccurdy Work Phone: [facility] Comment on above: Refill Request Start: 10-27-2021 Refill Melva PARRYC Work Phone: [facility] Comment on above: Refill Request Start: 10-18-2021 Refill Herminia Mccurdy Work Phone: [facility] Comment on above: Refill Request Start: 10-14-2021 ambulatory Herminia Evie [facility] Start: 10-14-2021 End: 10-14-2021 Subsequent hospital visit by physician Ziyad Menendez MD Work Phone: [facility] Med Onc Comment on above: 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); Abnormal chest CT; Other specified complication of vascular prosthetic devices, implants and grafts, initial encounter (HCC); Poor venous access Malignant neoplasm o f exocervix (HCC); Abnormal findings on diagnostic imaging of other specified body structures; Abnormal chest CT Start: 10-13-2021 Telephone encounter Herminia warner MD Work Phone: [facility] Comment on above: Orders ([facility]-Oxy gen order.) Start: 08-26-2021 Refill Jessica warner SYSTEMS ANALYSIS MANAGER.NAILING MACHINE OPERATOR Work Phone: [facility] Comment on above: Refill Request Start: 08-07-2021 Telephone encounter Herminia warner MD Work Phone: [facility] Comment on above: Patient Question Start: 08-06-2021 End: 08-06-2021 Patient encounter procedure Herminia Case MD Work Phone: [facility] Comment on above: Panlobular emphysema (HCC) [...] Telephone encounter Herminia warner MD Work Phone: [facility] Comment on above: Orders ([facility] ) Start: 08-04-2021 ambulatory Herminia Case [facility] Start: 07-28-2021 Refill Jessica warner SYSTEMS ANALYSIS MANAGER.NAILING MACHINE OPERATOR Work Phone: [facility] Comment on above: Refill Request Start: 07-01-2021 Refill Melva lovell PA-C Work Phone: [facility] Comment on above: Refill Request Start: 02-18-[address] [facility] Start: 12-26-2020 ambulatory Herminia Case [facility] Start: 12-26-2020 End: 12-26-2020 Subsequent hospital visit by physician Ziyad Menendez MD Work Phone: [facility] Med Onc Comment on above: 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); Poor venous access Malignant neoplasm o f exocervix (HCC); Lung nodule seen on imaging study Start: 10-16-2020 End: 10-16-2020 Emergency department patient visit Herminia Case MD Work Phone: [facility] Comment on above: Closed fracture of c occyx, initial encounter (HCC) (Primary Dx); Contusion of right elbow, initial encounter Start: 09-24-2020 End: 09-24-2020 Subsequent hospital visit by physician Ziyad Menendez MD Work Phone: [facility] CT Scan Comment on above: Arrived Poor venous access ( Primary Dx); Malignant neoplasm of exocervix (HCC) Start: 06-09-2020 End: 06-09-2020 Subsequent hospital visit by physician Ziyad Menendez Work Phone: [facility] Comment on above: 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); Poor venous access Start: 06-06-2020 End: 06-06-2020 Subsequent hospital visit by physician Ziyad Menendez Work Phone: [facility] CT Scan Comment on above: Abnormal findings on diagnostic imaging of other specified body structures; Abnormal CT of the chest Start: 03-16-2020 End: 03-16-2020 Emergency department patient visit Tani Madeleine Joseph Work Phone: [facility] Comment on above: COPD exacerbation (H CC) (Primary Dx); Bronchitis Start: 03-10-2020 End: 03-10-2020 Subsequent hospital visit by physician Ziyad Menendez Work Phone: [facility] CT Scan Comment on above: Malignant [...] visit by physician Ziyad Menendez Work Phone: [facility] Comment on above: Poor venous access [...] visit by physician Ziyad Menendez Work Phone: [facility] Comment on above: Poor venous access [...] Diezer Work Phone: [facility] Start: 01-15-2020 [...] visit by physician Burke Diezer Work Phone: [facility] Start: 12-26-2019 End: 12-26-2019 Subsequent hospital visit by physician Burke Diezer Work Phone: [facility] Start: 12-26-2019 End: 12-26-2019 Subsequent hospital visit by physician Burke Diezer Work Phone: [facility] Start: 12-19-2019 End: 12-20-2019 Subsequent hospital visit by physician Ziyad Menendez Work Phone: [facility] Cath & IR Lab Comment on above: Malignant neoplasm o f exocervix (HCC) Start: 12-11-2019 End: 12-11-2019 Subsequent hospital visit by physician Burke Washburn Work Phone: [facility] Start: 11-21-2019 End: 11-24-2019 Evaluation and management of inpatient Ray Vaz Dharmesh Work Phone: [facility] 4S TELEMETRY Comment on above: Right arm weakness ( Primary Dx); Pulmonary emphysema, unspecified emphysema type (HCC) Start: 11-10-2019 End: 11-10-2019 Subsequent hospital visit by physician Herminia Case Work Phone: [facility] Comment on above: Leg swelling Start: 11-10-2019 End: 11-10-2019 Subsequent hospital visit by physician Tani Joseph Work Phone: [facility] Ultrasound Start: 11-09-2019 End: 11-09-2019 Emergency department patient visit Tani Joseph Work Phone: [facility] Comment on above: Leg swelling (Primar y Dx) Start: 11-05-2019 End: 11-05-2019 Subsequent hospital visit by physician Ziyad Menendez Work Phone: [facility] Pre-Admit Testing Comment on above: Pre-op testing (Prim tom Dx) Start: 10-27-2019 End: 10-27-2019 Emergency department patient visit Ankit Zaragoza Work Phone: [facility] Comment on above: Compression fracture of L3 lumbar vertebra, sequela (Primary Dx); Acute exacerbation of chronic low back pain Start: 10-21-2019 End: 10-21-2019 Emergency department patient visit Jaspreet Otto Work Phone: [facility] Comment on above: Compression fracture of lumbar vertebra, initial encounter, unspecified lumbar vertebral level (HCC) (Primary Dx) Start: 08-02-2019 End: 08-04-2019 Evaluation and management of inpatient Joanie Lisa ClemonsSiena Work Phone: [facility] Procedures Date Procedure Procedure Detail [...] by MILANA with non-probe detection Leann Cross SYSTEMS ANALYSIS MANAGER - NAILING MACHINE OPERATOR Work Phone: Start: 01-16-2025 Smr prim src gram/gi emsa stain bct fungi/cell Leann Cross SYSTEMS ANALYSIS MANAGER - NAILING MACHINE OPERATOR Work Phone: Start: 01-16-2025 Basic metabolic pane l calcium total Ping Luttmann DO Work Phone: Start: 01-15-2025 Basic metabolic pane l calcium total Ping Luttmann DO Work Phone: Start: 01-15-2025 Blood gases any comb ination ph pco2 po2 co2 hco3 Leola Douglass SYSTEMS ANALYSIS MANAGER - [facility] Work Phone: Start: 01-14-2025 Blood gases any comb ination ph pco2 po2 co2 hco3 Srini Pires MD Work Phone: Start: 01-14-2025 Basic metabolic pane l calcium total Ping Luttmann DO Work Phone: Start: 01-13-2025 Radiologic exam ches t single view Boy Lynn MD Work Phone: Start: 01-13-2025 Blood gases any comb ination ph pco2 po2 co2 hco3 Ping Luttmann DO Work Phone: Start: 01-13-2025 Comprehensive metabolic panel Boy Lynn MD Work Phone: Start: 01-12-2025 ETHYL GLUCURONIDE SC REEN, URINE Boy Lynn MD Work Phone: Start: 01-12-2025 Iaadiadoo not otherw ise specified Boy Lynn MD Work Phone: Start: 01-12-2025 LEGIONELLA AND STREP TOCOCCUS URINE ANTIGEN, ORDERABLE Boy Lynn MD Work Phone: Start: 01-12-2025 URINE HOLD CUP Boy Lynn MD Work Phone: Start: 01-12-2025 Assay of troponin quantitative Amelie Soliz PA-C Work Phone: Start: 01-12-2025 Blood gases any comb ination ph pco2 po2 co2 hco3 Boy Lynn MD Work Phone: Start: 01-12-2025 Iadna s aureus methi cillin resist amp probe tq Boy Lynn MD Work Phone: Start: 01-12-2025 Blood [...] - Nasopharynx by MILANA with non-probe detection Boy Lynn MD Work Phone: Start: 01-12-2025 SARS-COV-2, [...] Work Phone: Start: 09-17-2024 Urine culture Jameson Mann sardesmond STALLINGS Start: 09-17-2024 Urnls dip stick/tabl et [...] by MILANA with non-probe detection Leann Cross SYSTEMS ANALYSIS MANAGER - NAILING MACHINE OPERATOR Work Phone: Start: 08-01-2024 Smr prim src gram/gi emsa stain bct fungi/cell Leann Cross SYSTEMS ANALYSIS MANAGER - NAILING MACHINE OPERATOR Work Phone: Start: 07-31-2024 Ct abdomen [...] Bacteria identified in Blood by Culture Amelie Arsenio Martínez FELIX Work Phone: Start: 08-07-2023 Radiologic exam ches t single view Amelie Hicksmallory FELIX Work Phone: Start: 08-07-2023 SARS-COV-2, FLU A/B, AND RSV COMBO Amelie Cesar Martínez FELIX Work Phone: Start: 08-07-2023 Bacteria identified [...] dip stick/tabl et rgnt auto w/o microscopy Davezbigniew Whipple DO Work Phone: Start: 11-07-2022 OXYGEN THERAPY Ray Mendez SYSTEMS ANALYSIS MANAGER - NARRATIVE WRITER Work Phone: Start: 11-07-2022 FL GUIDANCE OR [...] in Cervix by Cyto stain Kisha Pepe SYSTEMS ANALYSIS MANAGER - NAILING MACHINE OPERATOR Work Phone: Start: 09-15-2022 Blood count [...] Radex spine lumbosac ral 2/3 views Lauren Nelda SYSTEMS ANALYSIS MANAGER - NAILING MACHINE OPERATOR Work Phone: Start: 09-24-2020 Ct thorax [...] Work Phone: Start: 02-21-2020 Assay of magnesium Vanessa Menendez Work Phone: Start: 02-21-2020 Blood count complete auto&auto difrntl wbc Ziyad Menendez Work Phone: Start: 02-21-2020 Comprehensive metabolic panel Ziyad Menendez Work Phone: Start: 02-07-2020 Blood count complete auto&auto difrntl wbc Ziyad Menendez Work Phone: Start: 02-07-2020 Assay of magnesium Vanessa Menendez Work Phone: Start: 02-07-2020 Comprehensive metabolic panel Ziyad Menendez Work Phone: Start: 01-31-2020 Assay of magnesium Vanessa Menendez Work Phone: Start: 01-31-2020 Blood count complete auto&auto difrntl wbc Ziyad Menendez Work Phone: Start: 01-31-2020 Comprehensive metabolic panel Ziyad Menendez Work Phone: Start: 01-24-2020 Assay of magnesium Vanessa Menendez Work Phone: Start: 01-24-2020 Blood count complete auto&auto difrntl wbc Ziyad Menendez Work Phone: Start: 01-24-2020 Comprehensive metabolic panel Ziyad Menendez Work Phone: Start: 01-17-2020 Assay of magnesium Vanessa Menendez Work Phone: Start: 01-17-2020 Blood count complete auto&auto difrntl wbc Ziyad Menendez Work Phone: Start: 01-17-2020 Comprehensive metabolic panel Ziyad Menendez Work Phone: Start: 12-26-2019 CT GUIDANCE RADIOLOGY THERAPY Burke Washburn Work Phone: Start: 12-19-2019 Radiologic exam ches t single view Icelandic K Gladis Work Phone: Start: 12-19-2019 Special [...] Work Phone: Start: 11-21-2019 Prothrombin time Lacey mallory Barroso Work Phone: Start: 11-21-2019 Thromboplastin time partial plasma/whole blood Ray Barroso Work Phone: Start: 11-21-2019 Oxygen therapy [[facility]] Ray Barroso Work Phone: Start: 11-21-2019 Ecg routine ecg w/le ast 12 lds w/i&r Ray Barroso Work Phone: Start: 11-21-2019 Gluc bld gluc mntr d ev cleared fda spec home use Unknown Provider Result Start: 11-18-2019 Microscopic examinat ion of blood, culture Comment on above: Order Comment: Speci men Source Comment:Blood Performed By: #### C /BLT ####[facility] [employer] [address] [address] Start: 11-07-2019 H/O: hysterectomy S/P hysterectomy C venkat Rocha SYSTEMS ANALYSIS MANAGER - NAILING MACHINE OPERATOR Work Phone: Start: 11-06-2019 H/O: hysterectomy [...] et rgnt auto w/o microscopy Joanie R Siena Work Phone: Start: 08-02-2019 MDI TREATMENT Joanie R Siena Work Phone: Start: 08-02-2019 Radiologic exam ches t single view Joanie R Siena Work Phone: Start: 08-02-2019 Ecg routine ecg w/le ast 12 lds w/i&r Joanie R Siena Work Phone: Start: 08-02-2019 Assay of lactate Quenti n R Siena Work Phone: Start: 08-02-2019 COVID-19 Joanie R Siena Work Phone: Start: 08-02-2019 Iadna respiratry pro be & rev trnscr 12 target Joanie R Siena Work Phone: Start: 08-02-2019 Assay of troponin quantitative Joanie R Siena Work Phone: Start: 08-02-2019 Basic metabolic pane l calcium total Joanie R Siena Work Phone: Start: 08-02-2019 Blood count complete automated Joanie R Siena Work Phone: Start: 08-02-2019 CULTURE, BLOOD 1 Quenti n R Siena Work Phone: Start: 08-02-2019 Culture bacterial bl ood aerobic w/id isolates Joanie R Siena Work Phone: Start: 08-26-2017 Mammography Flako carlson MD Work Phone: Plan of Treatment Date Care Activity Detail Author Start: 10-21-2027 Screening for malign ant neoplasm of cervix [facility] Start: 09-16-2027 Lipid 1996 panel - S soniya or Plasma Lipid Screening [facility] Start: 09-16-2027 Lipid panel Lipid Screening [facility] Start: 09-16-2027 LIPID SCREEN LIPID SCREEN [facility] Start: 08-09-2027 Diabetes Screening Diabetes Screenin [facility] Start: 07-31-2027 Diabetes Screening Diabetes Screenin [facility] Start: 04-27-2027 Diabetes Screening Diabetes Screenin [facility] Start: 09-21-2026 Diabetes Screening Diabetes Screenin g [facility] Start: 08-08-2026 DTaP/Tdap/Td vaccine (2 - Td or Tdap) DTaP/Tdap/Td vaccine (2 - Td or Tdap) [facility] Start: 08-08-2026 DTaP/Tdap/Td vaccine (2 - Td) DTaP/Tdap/Td vaccine (2 - Td) [place] Start: 08-08-2026 DTaP/Tdap/Td Vaccine s (2 - Td or Tdap) DTaP/Tdap/Td Vaccines (2 - Td or Tdap) [facility] Start: 08-08-2026 Urine microalbumin profile [facility] Start: 08-06-2026 Diabetes Screening Diabetes Screenin g [facility] Start: 02-18-2026 Diabetes Screening Diabetes Screenin g [facility] Start: 11-20-2025 Screening for malign ant neoplasm of lung Lung Cancer Screening [facility] Start: 11-08-2025 Diabetes Screening Diabetes Screenin nestor [facility] Start: 10-20-2025 Screening for malign ant neoplasm of cervix Pap Smear [facility] Start: 09-15-2025 DIABETES SCREEN DIABETES SCREEN [facility] Start: 09-15-2025 Diabetes Screening Diabetes Screenin nestor [facility] Start: 07-30-2025 Annual PCP Team Automotive Generator Repairer kyrie Disease Visit Annual PCP Team Chronic Disease Visit [facility] Start: 06-06-2025 Annual PCP Team Automotive Generator Repairer kyrie Disease Visit Annual PCP Team Chronic Disease Visit [facility] Start: 05-02-2025 Annual PCP Team Automotive Generator Repairer kyrie Disease Visit Annual PCP Team Chronic Disease Visit [facility] Start: 04-05-2025 End: 04-05-2025 Patient encounter procedure 04/05/2025 2:30 PM EST Office Visit [facility] Pulmonary and Sleep Medicine [facility] [address] [place] [address] Elyssa Tesfaye NP [address] [place] [address] [facility] Pulmonary and Sleep Medicine [facility] Start: 04-02-2025 End: 04-02-2025 Patient encounter procedure 04/02/2025 11:30 AM EST Appointment [facility] CT Imaging [address] [place] [id number] Elyssa Tesfaye, LEONELA [address] [place] [address] [facility] CT Imaging Start: 03-30-2025 End: 12-28-2025 CT Chest WO contrast CT chest wo IV contrast Imaging Routine Pulmonary nodule Expected: 03/30/2025, Expires: 12/28/2025 [facility] Work Phone: Comment on above: Expected: 03/30/2025 , Expires: 12/28/2025 Start: 02-25-2025 End: 02-25-2025 Patient encounter procedure 02/25/2025 12:00 PM EST Appointment [facility] Pulm Function Test [address] [place] [phone] Elyssa Tesfaye, LEONELA [address] [place] [address] [facility] Pulm Function Test Start: 02-06-2025 End: 02-06-2025 Patient encounter procedure 02/06/2025 10:40 AM EST Office Visit [facility] Pulmonary and Sleep [facility] [address] [place] [address] Sofia Marina APRN - NAILING MACHINE OPERATOR [address] [place] [address] [facility] Pulmonary and Sleep Medicine [facility] Start: 12-29-2024 Annual PCP Team Automotive Generator Repairer kyrie Disease Visit Annual PCP Team Chronic Disease Visit [facility] Start: 12-28-2024 End: 12-28-2025 Complete PFT pre and post bronchodilator with FENO Complete PFT pre and post bronchodilator with FENO PFT Routine Centrilobular emphysema (HCC) Expected: 12/28/2024 (Approximate), Expires: 12/28/2025 [facility] Comment on above: Expected: 12/28/2024 (Approximate), Expires: 12/28/2025 Start: 12-04-2024 Subsequent hospital visit by physician 12/04/2024 7:45 AM EDT Hospital Encounter [facility] [address] [place] [phone] Elyssa Tesfaye, LEONELA [address] [place] [address] [facility] Start: 11-26-2024 End: 11-26-2024 Patient encounter procedure 11/26/2024 1:30 PM EDT Office Visit [facility] Pulmonary and Sleep Medicine [facility] [address] [place] [address] Elyssa Tesfaye NP [address] [place] [address] [facility] Pulmonary and Sleep Medicine [facility] Start: 11-20-2024 End: 11-20-2024 Patient encounter procedure 11/20/2024 3:45 PM EDT Appointment [facility] CT [address] [place] [address] Elyssa Tesfaye NP [address] [place] [address] [facility] [address] Start: 11-20-2024 End: 08-20-2025 CT Chest WO contrast [facility] Work Phone: Comment on above: Expected: 11/20/2024 , Expires: 08/20/2025 Once for 1 Occurrenc es starting 11/20/2024 until 11/20/2024 Start: 2024 COVID-19 Vaccine ( season) COVID-19 Vaccine ( season) [facility] Start: 2024 Influenza vaccination C [facility] Start: 10-24-2024 End: 10-24-2024 Patient encounter procedure 10/24/2024 10:00 AM EDT Appointment [facility] PFT [address] [place] [phone] Elyssa Tesfaye NP [address] [place] [address] [facility] Start: 10-18-2024 End: 10-18-2024 ambulatory 10/18/2024 3:30 PM EDT Infusion [facility] [address] [place] [phone] Ziyad Menendez MD [address] [facility] [address] [place] [address] [facility] Start: 10-15-2024 Screening for malign ant neoplasm of lung Lung Cancer Screening [facility] Start: 10-11-2024 HPV TESTING HPV TESTING [facility] Start: 10-11-2024 PAP TESTING PAP TESTING [facility] Start: 09-24-2024 End: 09-24-2024 Patient encounter procedure 09/24/2024 10:00 AM EDT Office Visit [facility] Gynecologic Oncology - [place] [address] [place] [address] Radha Orellana APRN - NAILING MACHINE OPERATOR [address] [place] [address] [facility] - [place] Start: 09-17-2024 Screening for malign ant neoplasm of cervix [facility] Start: 09-07-2024 Annual PCP Team Automotive Generator Repairer kyrie Disease Visit Annual PCP Team Chronic Disease Visit [facility] Start: 09-04-2024 End: 09-04-2024 ambulatory 09/04/2024 2:30 PM EDT Infusion [facility] [address] [place] [phone] [facility] Start: 08-20-2024 End: 08-20-2025 Complete PFT pre and post bronchodilator with FENO Complete PFT pre and post bronchodilator with FENO PFT Routine Chronic obstructive pulmonary disease with acute lower respiratory infection (HCC) Centrilobular emphysema (HCC) Expected: 08/20/2024 (Approximate), Expires: 08/20/2025 [facility] Comment on above: Expected: 08/20/2024 (Approximate), Expires: 08/20/2025 Start: 08-20-2024 End: 08-20-2024 Patient encounter procedure 08/20/2024 10:30 AM EDT Office Visit [facility] Pulmonary and Sleep Medicine [facility] [address] [place] [address] Elyssa Tesfaye NP [address] [place] [address] [facility] Pulmonary and Sleep Medicine [facility] Start: 07-30-2024 End: 07-30-2024 Patient encounter procedure 07/30/2024 3:00 PM EDT Office Visit Family Medicine [place] [address] [address] Herminia Case MD [address] [place] [address] back pain [facility] [place] Comment on above: back pain Start: 06-30-2024 End: 09-29-2024 CBC W Auto Differential panel - Blood COMPLETE BLOOD COUNT AND DIFFERENTIAL Lab Routine Hyperlipidemia, mixed Expected: 06/30/2024 (Approximate), Expires: 09/29/2024 [facility] Comment on above: Expected: 06/30/2024 (Approximate), Expires: 09/29/2024 Start: 06-30-2024 End: 09-29-2024 Hemoglobin A1c in Blood HEMOGLOBIN A1C Lab Routine Hyperglycemia Expected: 06/30/2024 (Approximate), Expires: 09/29/2024 [facility] Work Phone: Comment on above: Expected: 06/30/2024 (Approximate), Expires: 09/29/2024 Start: 06-30-2024 End: 09-29-2024 Hepatic function 2000 panel - Serum or Plasma HEPATIC FUNCTION PNL Lab Routine Hyperlipidemia, mixed Expected: 06/30/2024 (Approximate), Expires: 09/29/2024 [facility] Comment on above: Expected: 06/30/2024 (Approximate), Expires: 09/29/2024 Start: 06-30-2024 End: 09-29-2024 Lipid 1996 panel - Serum or Plasma LIPID PANEL BASIC Lab Routine Hyperlipidemia, mixed Expected: 06/30/2024 (Approximate), Expires: 09/29/2024 [facility] Comment on above: Expected: 06/30/2024 (Approximate), Expires: 09/29/2024 Start: 06-09-2024 Annual PCP Team Automotive Generator Repairer kyrie Disease Visit Annual PCP Team Chronic Disease Visit [facility] Start: 06-06-2024 End: 06-06-2024 ambulatory 06/06/2024 10:20 AM EDT [place] [address] [address] Herminia Case MD [address] [place] [address] discuss assisted living/group home [facility] Comment on above: discuss assisted raul ing/group home Start: 05-19-2024 Annual PCP Team Automotive Generator Repairer kyrie Disease Visit Annual PCP Team Chronic Disease Visit [facility] Start: 05-02-2024 Annual PCP Team Automotive Generator Repairer kyrie Disease Visit Annual PCP Team Chronic Disease Visit [facility] Start: 03-22-2024 Depression Monitoring Depression [facility] Start: 03-21-2024 Advance Directive Discussion Advance Directive Discussion [facility] Start: 03-21-2024 Medicare Advantage Annual Wellness Visit Medicare Advantage Annual Wellness Visit [facility] Start: 03-11-2024 Annual PCP Team Automotive Generator Repairer kyrie Disease Visit Annual PCP Team Chronic Disease Visit [facility] Start: 01-15-2024 Annual PCP Team Automotive Generator Repairer kyrie Disease Visit Annual PCP Team Chronic Disease Visit [facility] Start: 12-08-2023 LIPID SCREEN LIPID SCREEN [facility] Start: 11-20-2023 Covid-19 Vaccine ( season) Covid-19 Vaccine ( season) [facility] Start: 11-20-2023 Covid-19 Vaccine ( season) Covid-19 Vaccine ( season) [facility] Start: 11-20-2023 Influenza vaccination C [facility] Start: 09-18-2023 Influenza vaccination Influenza Vacc ine (#1) [facility] Comment on above: Postponed from 11/19 (Declined at this time) Start: 09-16-2023 ANNUAL PCP TEAM SIX SIGMA BLACK BELT ENGINEER KYRIE DISEASE VISIT ANNUAL PCP TEAM CHRONIC DISEASE VISIT [facility] Start: 09-16-2023 Zoledronic acid therapy ALPHA- 1 ANTITRYPSIN DEFICIENCY SCREENING [facility] Comment on above: Postponed from 11/19 (Declined at this time) Start: 09-13-2023 DIABETES SCREEN DIABETES SCREEN [facility] Start: 09-08-2023 End: 09-08-2023 Patient encounter procedure 09/08/2023 3:20 PM EDT Office Visit [facility] [address] [address] Barbi Goldberg MD [address] [place] [address] shaziarae [facility] Comment on above: shaziarae Start: 08-24-2023 End: 08-24-2023 Follow-up encounter 08/24/2023 3:00 PM EDT [facility] [address] [place] [address] Melva Juárez PAKimC [address] [place] [address] Follow up visit [facility] Comment on above: Follow up visit Start: 08-16-2023 End: 08-16-2023 Patient encounter procedure 08/16/2023 10:00 AM EDT Office Visit [address] [address] Herminia Case MD [address] [place] [address] sick [facility] Comment on above: sick Start: 08-03-2023 End: 08-03-2023 Follow-up encounter 08/03/2023 11:20 AM EDT [address] [address] Herminia Case MD [address] [place] [address] Follow up [facility] Comment on above: Follow up Start: 07-22-2023 End: 07-22-2023 Follow-up encounter 07/22/2023 1:00 PM EDT [address] [address] Herminia Case MD [address] [place] [address] 6 week follow up-anxiety and depression [facility] Comment on above: 6 week follow up-anx iety and depression Start: 07-05-2023 End: 10-04-2023 Lipid 1996 panel - Serum or Plasma LIPID PANEL BASIC Lab Routine Medication management Expected: 07/05/2023, Expires: 10/04/2023 [facility] Work Phone: Comment on above: Expected: 07/05/2023 , Expires: 10/04/2023 Start: 06-04-2023 ANNUAL PCP TEAM SIX SIGMA BLACK BELT ENGINEER KYRIE DISEASE VISIT ANNUAL PCP TEAM CHRONIC DISEASE VISIT [facility] Start: 06-04-2023 COVID-19 VACCINE (#1) COVID-19 VACCI NE (#1) [facility] Comment on above: Postponed from 05/19 (Declined at this time) Start: 06-04-2023 SHINGRIX VACCINE (2 of 2) SHINGRIX VACCINE (2 of 2) [facility] Comment on above: Postponed from 12/05 (Declined at this time) Start: 05-02-2023 End: 08-01-2023 PAIN PANEL, UR QUANT [facility] Work Phone: Comment on above: Expected: 05/02/2023 , Expires: 08/01/2023 Start: 04-22-2023 End: 04-22-2023 Patient encounter procedure [facility] Gynecologic Oncology Start: 03-21-2023 Advance Directive Discussion Advance Directive Discussion [facility] Start: 03-21-2023 Medicare Advantage Annual Wellness Visit Medicare Advantage Annual Wellness Visit [facility] Start: 03-09-2023 End: 03-09-2023 Patient encounter procedure 03/09/2023 11:15 AM EST Office Visit [facility] Pulmonary Care [address] [place] [address] Freddy Person MD [address] [place] [address] [facility] Start: 03-05-2023 ANNUAL PCP TEAM SIX SIGMA BLACK BELT ENGINEER KYRIE DISEASE VISIT ANNUAL PCP TEAM CHRONIC DISEASE VISIT [facility] Start: 11-20-2022 ANNUAL PCP TEAM SIX SIGMA BLACK BELT ENGINEER KYRIE DISEASE VISIT ANNUAL PCP TEAM CHRONIC DISEASE VISIT [facility] Start: 2022 Covid-19 Vaccine (1 - 2023-24 season) Covid-19 Vaccine () [facility] Start: 2022 Influenza vaccination [facility] Start: 11-17-2022 End: 11-17-2022 Patient encounter procedure 11/17/2022 9:00 AM EDT Office Visit [facility] Pulmonary Care [address] [place] [address] Nabeel Tran MD [address] [place] [address] [facility] Start: 11-10-2022 End: 11-10-2022 Patient encounter procedure 11/10/2022 3:30 PM EDT Appointment [facility] CT Imaging [address] [place] [phone] Kisha Pepe APRN - NAILING MACHINE OPERATOR [address] [facility] [address] [place] [address] [facility] CT Imaging Start: 10-27-2022 End: 10-27-2022 Patient encounter procedure 10/27/2022 10:40 AM EDT Office Visit [facility] Pulmonary Care [address] [place] [address] Nabeel Tran MD [address] [place] [address] [facility] Start: 10-24-2022 Screening for malign ant neoplasm of cervix Cervical cancer screen [facility] [place] Start: 10-20-2022 End: 10-21-2023 CT Chest WO contrast CT chest wo IV contrast Imaging Routine Malignant neoplasm of exocervix (HCC) Expected: 10/20/2022, Expires: 10/21/2023 [facility] Work Phone: Comment on above: Expected: 10/20/2022 , Expires: 10/21/2023 Start: 10-20-2022 End: 12-21-2023 DBT Breast - bilateral screening Bilateral screening mammogram with tomosynthesis Imaging Routine Encounter for screening mammogram for malignant neoplasm of breast Expected: 10/20/2022, Expires: 12/21/2023 [facility] Comment on above: Expected: 10/20/2022 , Expires: 12/21/2023 Start: 10-20-2022 End: 10-20-2022 Patient encounter procedure 10/20/2022 Office Visit Gynecologic Oncology Afshin, KishaDB - NAILING MACHINE OPERATOR [address] [facility] [address] [place] [address] [facility] CULINARY WORKER Oncology Start: 10-14-2022 Influenza vaccination LUNG CANCER SC REENING [facility] Start: 10-14-2022 Screening for malign ant neoplasm of lung Lung Cancer Screening [facility] Start: 09-17-2022 Influenza vaccination INFLUENZA (#1) [facility] Comment on above: Postponed from 11/19 (Declined at this time) Start: 08-17-2022 End: 10-17-2022 Lipid 1996 panel - Serum or Plasma LIPID PANEL BASIC Lab Routine Medication management Expected: 08/17/2022, Expires: 10/17/2022 [facility] Work Phone: Comment on above: Expected: 08/17/2022 , Expires: 10/17/2022 Start: 08-06-2022 ANNUAL PCP TEAM SIX SIGMA BLACK BELT ENGINEER KYRIE DISEASE VISIT ANNUAL PCP TEAM CHRONIC DISEASE VISIT [facility] Start: 05-06-2022 ANNUAL PCP TEAM SIX SIGMA BLACK BELT ENGINEER KYRIE DISEASE VISIT ANNUAL PCP TEAM CHRONIC DISEASE VISIT [facility] Start: 03-21-2022 ADVANCE DIRECTIVE DISCUSSION ADVANCE DIRECTIVE DISCUSSION [facility] Start: 03-17-2022 End: 03-17-2022 Patient encounter procedure 03/17/2022 Office Visit Gynecologic Oncology Ziyad Menendez MD [address] [place], [place] [id number] [facility] [place] CULINARY WORKER Oncology Start: 03-11-2022 Pneumococcal 0-64 ye ars Vaccine (2 of 2 - PPSV23) Pneumococcal 0-64 years Vaccine (2 of 2 - PPSV23) [facility] Work Phone: Start: 03-11-2022 Pneumococcal 0-64 ye ars Vaccine (2 of 4 - PPSV23) Pneumococcal 0-64 years Vaccine (2 of 4 - PPSV23) [facility] Work Phone: Start: 02-16-2022 End: 04-18-2022 CBC panel - Blood by Automated count CBC Lab Routine Medication management Expected: 02/16/2022, Expires: 04/18/2022 [facility] Work Phone: Comment on above: Expected: 02/16/2022 , Expires: 04/18/2022 Start: 02-16-2022 End: 04-18-2022 SCHEDULE LAB TESTING SCHEDULE LAB TESTING Lab Routine Expected: 02/16/2022, Expires: 04/18/2022 [facility] Work Phone: Comment on above: Expected: 02/16/2022 , Expires: 04/18/2022 Start: 12-26-2021 Influenza vaccination LUNG CANCER SC REENING [facility] Start: 12-09-2021 End: 12-09-2021 Patient encounter procedure 12/09/2021 Appointment Infusion Therapy [facility] Start: 2021 ADVANCE DIRECTIVE DISCUSSION ADVANCE DIRECTIVE DISCUSSION [facility] Start: 2021 BONE DENSITY BONE DENSITY [facility] Start: 2021 Bone Density Screening Bone Density Screening [facility] Start: 2021 Influenza vaccination C [facility] Start: 2021 Screening for osteoporosis Bone Density Screening [facility] Start: 10-27-2021 End: 12-27-2021 CBC panel - Blood by Automated count CBC Lab Routine Medication management Expected: 10/27/2021, Expires: 12/27/2021 [facility] Work Phone: Comment on above: Expected: 10/27/2021 , Expires: 12/27/2021 Start: 10-27-2021 End: 12-27-2021 SCHEDULE LAB TESTING SCHEDULE LAB TESTING Lab Routine Expected: 10/27/2021, Expires: 12/27/2021 [facility] Work Phone: Comment on above: Expected: 10/27/2021 , Expires: 12/27/2021 Start: 09-24-2021 Screening for malign ant neoplasm of lung Low dose CT lung screening [facility] Work Phone: Start: 09-15-2021 COLORECTAL CANCER SCREENING COLORECTAL CANCER SCREENING [facility] Comment on above: Postponed from 11/19 (Declined at this time) Start: 09-15-2021 COVID-19 VACCINE (#1) COVID-19 VACCI NE (#1) [facility] Comment on above: Postponed from 11/19 (Declined at this time) Start: 09-15-2021 COVID-19 VACCINE (1) COVID-19 VACCIN E (1) [facility] Comment on above: Postponed from 11/19 (Declined at this time) Start: 09-15-2021 SHINGRIX VACCINE (2 of 2) SHINGRIX VACCINE (2 of 2) [facility] Comment on above: Postponed from 12/05 (Declined at this time) Start: 08-06-2021 End: 10-06-2021 CBC W Auto Differential panel - Blood CBC + DIFF Lab Routine Panlobular emphysema (HCC) Chronic respiratory failure with hypoxia (HCC) Expected: 08/06/2021, Expires: 10/06/2021 [facility] Work Phone: Comment on above: Expected: 08/06/2021 , Expires: 10/06/2021 Start: 08-06-2021 End: 10-06-2021 Comprehensive metabolic 2000 panel - Serum or Plasma COMP METABOLIC PANEL Lab Routine Panlobular emphysema (HCC) Chronic respiratory failure with hypoxia (HCC) Expected: 08/06/2021, Expires: 10/06/2021 [facility] Work Phone: Comment on above: Expected: 08/06/2021 , Expires: 10/06/2021 Start: 08-06-2021 End: 10-06-2021 LIPID PANEL BASIC LIPID PANEL BASIC Lab Routine Screening for lipid disorders Expected: 08/06/2021, Expires: 10/06/2021 [facility] Work Phone: Comment on above: Expected: 08/06/2021 , Expires: 10/06/2021 Start: 08-06-2021 End: 10-06-2021 PAIN PANEL, UR QUANT PAIN PANEL, UR QUANT Lab Routine Medication monitoring encounter Expected: 08/06/2021, Expires: 10/06/2021 [facility] Work Phone: Comment on above: Expected: 08/06/2021 , Expires: 10/06/2021 Start: 08-06-2021 End: 10-06-2021 VITAMIN D 25 HYDROXY VITAMIN D 25 HYDROXY Lab Routine Vitamin D deficiency Expected: 08/06/2021, Expires: 10/06/2021 [facility] Work Phone: Comment on above: Expected: 08/06/2021 , Expires: 10/06/2021 Start: 06-06-2021 Screening for malign ant neoplasm of lung Low dose CT lung screening [facility] Work Phone: Start: 02-06-2021 End: 02-06-2021 Patient encounter procedure 02/06/2021 Appointment Infusion Therapy [facility] Start: 11-23-2020 Statin Therapy Statin Therapy [place], [place] Start: 11-21-2020 Lipid panel [facility] Start: 2020 Influenza vaccination Flu vaccine (# 1) [facility] Work Phone: Start: 10-13-2020 End: 10-13-2020 Office Visit [facility] [place] CULINARY WORKER Oncology Start: 08-08-2020 End: 08-08-2020 Appointment 08/08/2020 Appointment Infusion Therapy [facility] Start: 07-01-2020 End: 07-01-2020 Telemedicine 07/01/2020 Telemedicine Cardiology Nell Padilla MD [address] [place] [id number] [facility] Start: 06-13-2020 End: 06-13-2020 Appointment 06/13/2020 Appointment Infusion Therapy [facility] Start: 06-09-2020 End: 06-09-2020 Office Visit 06/09/2020 Office Visit Gynecologic Oncology Ziyad Menendez MD [address], [address] [place] [address] [phone] [facility] [place] CULINARY WORKER Oncology Start: 04-15-2020 Lipid panel Lipid screen [facility] Start: 03-28-2020 End: 03-28-2020 Virtual Visit 03/28/2020 Virtual Visit Palliative Care David Pollack, DO [address] [phone] [facility] Start: 03-17-2020 End: 03-17-2020 Office Visit [facility] [place] CULINARY WORKER Oncology Comment on above: 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) Start: 03-10-2020 End: 03-10-2020 Appointment 03/10/[address] [facility] [address] Scan Start: 02-22-2020 End: 02-22-2020 Appointment [facility] Start: 02-21-2020 End: 02-21-2020 Office Visit [facility] [place] CULINARY WORKER Oncology Start: 02-08-2020 End: 02-08-2020 Appointment [facility] Start: 02-07-2020 End: 02-07-2020 Appointment 02/07/2020 Appointment Infusion Therapy [facility] Start: 02-01-2020 End: 02-01-2020 Appointment [facility] Start: 01-31-2020 End: 01-31-2020 Appointment [facility] Start: 01-25-2020 End: 01-25-2020 Appointment [facility] Start: 01-24-2020 End: 01-24-2020 Appointment 01/24/2020 Appointment Infusion Therapy [facility] Start: 01-18-2020 End: 01-18-2020 Appointment 01/18/2020 Appointment Infusion Therapy [facility] Start: 01-17-2020 End: 01-17-2020 Appointment [facility] Start: 12-13-2019 End: 12-13-2019 Office Visit 12/13/2019 Office Visit Gynecologic Oncology Ziyad Menendez MD [address] [place] [address] [phone] [facility] [place] CULINARY WORKER Oncology Start: 12-07-2019 End: 12-07-2019 Office Visit 12/07/2019 Office Visit Gynecologic Oncology Ziyad Menendez MD [address] [place] [address] [facility] [place] CULINARY WORKER Oncology Start: 12-06-2019 Shingles Vaccine (2 of 2) Shingles Vaccine (2 of 2) [facility] Start: 12-06-2019 SHINGRIX VACCINE (2 of 2) SHINGRIX VACCINE (2 of 2) [facility] Start: 12-06-2019 Zoster Vaccines (2 of 2) Zoster Vacc otto (2 of 2) [facility] Start: 11-22-2019 End: 11-22-2019 Office Visit 11/22/2019 Office Visit Gynecologic Oncology Ziyad Menendez MD [address] [place], [place] [id number] [facility] CULINARY WORKER Oncology Start: 11-20-2019 Influenza vaccination Flu vaccine (# 1) [facility] [place] Start: 11-09-2019 End: 11-08-2020 US Lower Extremity Venous Right US Lower Extremity Venous Right Imaging Routine Leg swelling Expected: 11/09/2019, Expires: 11/08/2020 [place], [place] Comment on above: Expected: 11/09/2019 , Expires: 11/08/2020 Start: 11-06-2019 End: 11-06-2019 Appointment [facility] Start: 10-30-2019 End: 10-30-2019 Appointment 10/30/2019 Appointment Pre-Admission Testing Ziyad Menendez MD [address], [address] [place] [address] [phone] [facility] Pre-Admit Testing Start: 10-25-2019 Annual Wellness Visi t (AWV) Annual Wellness Visit (AWV) [place], [place] Start: 10-25-2019 End: 10-25-2019 Office Visit 10/25/2019 Office Visit Gynecologic Oncology Ziyad Menendez MD [address] [place] [address] [facility] [place] CULINARY WORKER Oncology Start: 10-18-2019 Screening for malign ant neoplasm of lung Low dose CT lung screening [place], [place] Start: 08-27-2019 Screening for malign ant neoplasm of breast Breast cancer screen [facility] Start: 12-10-2018 Screening for osteoporosis Bone Density Scan [facility] Start: 08-26-2018 Screening for malign ant neoplasm of breast [facility] Start: 03-11-2018 PNEUMOCOCCAL (2 - PCV) PNEUMOCOCCAL (2 - PCV) [facility] Start: 03-11-2018 Pneumococcal 0-64 ye ars Vaccine (2 - PCV) Pneumococcal 0-64 years Vaccine (2 - PCV) [facility] Start: 03-11-2018 Pneumococcal Vaccine : 50+ Years (2 of 2 - PCV) Pneumococcal Vaccine: 50+ Years (2 of 2 - PCV) [facility] Start: 03-11-2018 Pneumococcal Vaccine : 65+ (2 - PCV) Pneumococcal Vaccine: 65+ (2 - PCV) [facility] Start: 03-11-2018 Pneumococcal Vaccine : 65+ Years (2 - PCV) Pneumococcal Vaccine: 65+ Years (2 - PCV) [facility] Start: 03-11-2018 Pneumococcal Vaccine : 65+ Years (2 of 2 - PCV) Pneumococcal Vaccine: 65+ Years (2 of 2 - PCV) [facility] Start: 03-11-2018 PNEUMOCOCCAL: 65+ (2 - PCV) PNEUMOCOCCAL: 65+ (2 - PCV) [facility] Start: 2016 RSV Immunization age d 60 or older (1 - 1-dose 60+ series) RSV Immunization aged 60 or older (1 - 1-dose 60+ series) [facility] Start: 2016 RSV Immunization for Adults (1 - Risk 60-74 years 1-dose series) RSV Immunization for Adults (1 - Risk 60-74 years 1-dose series) [facility] Start: 2016 RSV Vaccine (1 - 1-d ose 60+ series) RSV Vaccine (1 - 1-dose 60+ series) [facility] Start: 2016 RSV Vaccine (1 - Ris k 60-74 years 1-dose series) RSV Vaccine (1 - Risk 60-74 years 1-dose series) [facility] Start: 04-15-2016 Lipid panel Lipid screen [facility] [place] Start: 2006 Screening for malign ant neoplasm of colon Colon cancer screen colonoscopy [place], [place] Start: 2006 Screening for malign ant neoplasm of lung Low dose CT lung screening [facility] Start: 2006 Shingles Vaccine (1 of 2) Shingles Vaccine (1 of 2) [place] Start: 2001 COLOGUARD (FIT-DNA) COLOGUARD (FIT-D NA) [facility] Start: 2001 Colonoscopy COLONOSCOPY [facility] Start: 2001 COLORECTAL CANCER SCREENING COLORECTAL CANCER SCREENING [facility] Start: [address] COLONOGRAPHY [facility] Start: 2001 FECAL OCCULT BLOOD FECAL OCCULT BLOO D [facility] Start: 2001 Screening for malign ant neoplasm of colon [facility] Start: 2001 SIGMOIDOSCOPY SIGMOIDOSCOPY [facility] Start: 1996 Mammography [facility] Start: 1996 Screening for malign ant neoplasm of breast [facility] Start: 1986 Screening for malign ant neoplasm of cervix [facility] Start: 1986 Zoledronic acid therapy ALPHA- 1 ANTITRYPSIN DEFICIENCY SCREENING [facility] Start: 1977 Screening for malign ant neoplasm of cervix [place], [place] Start: 1974 Hepatitis C screening Hepatitis C [facility] Start: 1972 COVID-19 Vaccine (1) COVID-19 Vaccin e (1) [facility] Work Phone: Start: 1968 COVID-19 Vaccine (1) COVID-19 Vaccin e (1) [facility] Work Phone: Start: 1968 Depression Monitoring Depression Mon itoring [facility] Start: 1968 Depresssion Monitoring Depresssion M onitoring [facility] Start: 1961 COVID-19 Vaccine (#1) COVID-19 Vacci ne (#1) [facility] Start: 05-19-1957 COVID-19 VACCINE (#1) COVID-19 VACCI NE (#1) [facility] Start: 1956 Annual wellness visit Medicare Initial Physical (IPPE) [facility] Start: 1956 Annual Wellness Visi t (AWV) Annual Wellness Visit (AWV) [facility] Start: 1956 Hepatitis B Vaccines (1 of 3 - 3-dose series) Hepatitis B Vaccines (1 of 3 - 3-dose series) [facility] Start: 1956 Medicare Advantage Annual Wellness Visit (AWV) Medicare Advantage Annual Wellness Visit (AWV) [facility] Start: 1956 Screening for malign ant neoplasm of colon [facility] Start: 1956 Screening for osteoporosis Bone Density Scan [facility] Bacteria identified in Blood by Culture [facility] Work Phone: Basic metabolic 2000 panel Basic Metabolic Panel Lab Routine Daily until discontinued starting 08/04/2019, 1 completed [facility] [place] Comment on above: Daily until disconti nued starting 08/04/2019, 1 completed Basic Metabolic Pane l w/ Reflex to MG Basic Metabolic Panel w/ Reflex to MG Lab Routine Daily until discontinued starting 11/23/2019, 2 completed [facility] [place], [place] Comment on above: Daily until disconti nued starting 11/23/2019, 2 completed CBC Auto Differential [facility] [place] Comment on above: Daily until disconti nued starting 08/04/2019, 1 completed Daily until disconti nued starting 11/23/2019, 2 completed End: 02-01-2020 CBC Auto Differential CBC Auto Differential Lab Routine Malignant neoplasm of exocervix (HCC) 1 Occurrences starting 02/01/2020 until 02/01/2020 [facility] [place] Comment on above: 1 Occurrences starti ng 02/01/2020 until 02/01/2020 COLOGUARD COLOGUARD Lab Ro utine Screening for colon cancer Ordered: 09/15/2022 [facility] Work Phone: Comment on above: Ordered: 09/15/2022 End: 02-01-2020 Comprehensive metabolic 2000 panel Comprehensive Metabolic Panel Lab Routine Malignant neoplasm of exocervix (HCC) 1 Occurrences starting 02/01/2020 until 02/01/2020 [facility] [place] Comment on above: 1 Occurrences starti ng 02/01/2020 until 02/01/2020 End: 03-16-2020 COVID-19 COVID-19 Lab STAT One Time for 1 Occurrences starting 03/16/2020 until 03/16/2020 [place], [place] Comment on above: One Time for 1 Occur rences starting 03/16/2020 until 03/16/2020 COVID-19 COVID-19 Lab STA T 03/16/2020 1:18 PM [place], [place] End: 06-09-2020 Creatinine [Mass/Vol] Creatinine, Serum [...] study 1 Occurrences starting 03/10/2020 until 03/10/2020 [place] Comment on above: 1 Occurrences starti ng 03/10/2020 until 03/10/2020 CT CHEST ABDOMEN PEL VIS W CONTRAST CT CHEST ABDOMEN PELVIS W CONTRAST Imaging Routine Malignant neoplasm of exocervix (HCC) Lung nodule seen on imaging study 03/10/2020 1:23 PM [place], [place] End: 06-06-2020 CT Chest W Contrast [...] starting 10/14/2021 until 10/14/2021 Culture, Blood 1 [facility] End: 03-16-2020 Culture, Blood 1 Culture, Blood 1 Microbiology STAT One Time for 1 Occurrences starting 03/16/2020 until 03/16/2020 [place], [place] Comment on above: One Time for 1 Occur rences starting 03/16/2020 until 03/16/2020 Culture, [facility] End: 03-16-2020 Culture, Blood 2 Culture, Blood 2 Microbiology STAT One Time for 1 Occurrences starting 03/16/2020 until 03/16/2020 [place], [place] Comment on above: One Time for 1 Occur rences starting 03/16/2020 until 03/16/2020 Culture, Respiratory Culture, Re spiratory Microbiology Routine 08/02/2019 11:55 PM EDT [place], [place] Cytology Cervical or vaginal smear or scraping study Pap Smear Pathology and Cytology Routine Malignant neoplasm of exocervix (HCC) 10/20/2022 2:32 PM EDT [facility] End: 06-21-2025 DBT Breast - bilateral screening PAOLO SCREENING W CARON Radiology Routine Encounter for screening mammogram for breast cancer 1 Occurrences starting 05/22/2024 until 06/21/2025 [facility] Work Phone: Comment on above: 1 Occurrences starti ng 05/22/2024 until 06/21/2025 ECG 12 lead ECG 12 lead CV E CG STAT 05/21/2022 5:47 AM [facility] Work Phone: ECG 12 lead ECG 12 lead CV E CG STAT 04/27/2024 11:57 PM [facility] Work Phone: EKG 12 Lead - Chest Pain [place], [place] End: 08-04-2019 Home O2 eval (desaturation screen) Home O2 eval (desaturation screen) Respiratory Care Routine One Time for 1 Occurrences starting 08/04/2019 until 08/04/2019 [place], [place] Comment on above: One Time for 1 Occur rences starting 08/04/2019 until 08/04/2019 HPV High Risk PCR HPV High Risk PCR Microbiology Routine Malignant neoplasm of exocervix (HCC) 10/20/2022 2:32 PM EDT [facility] End: 02-01-2020 Magnesium [Mass/Vol] Magnesium Lab Routine Malignant neoplasm of exocervix (HCC) 1 Occurrences starting 02/01/2020 until 02/01/2020 [facility] Comment on above: 1 Occurrences starti ng 02/01/2020 until 02/01/2020 End: 08-13-2023 PAOLO SCREENING PAOLO SCREENING Radiology Routine Encounter for screening mammogram for breast cancer 1 Occurrences starting 07/14/2022 until 08/13/2023 [facility] Work Phone: Comment on above: 1 Occurrences starti ng 07/14/2022 until 08/13/2023 End: 09-05-2022 PAOLO SCREENING W CARON PAOLO SCREENING W [facility] Radiology Routine Encounter for screening mammogram for malignant neoplasm of breast 1 Occurrences starting 08/06/2021 until 09/05/2022 [facility] Work Phone: Comment on above: 1 Occurrences starti ng 08/06/2021 until 09/05/2022 MDI Treatment MDI Treatment Respiratory Care Routine Every 6hr As Needed until discontinued starting 08/02/2019 [facility] Comment on above: Every 6hr As Needed until discontinued starting 08/02/2019 End: 07-21-2024 MG Breast Screening PAOLO SCREENING Radiology Routine Encounter for screening mammogram for breast cancer 1 Occurrences starting 06/22/2023 until 07/21/2024 [facility] Work Phone: Comment on above: 1 Occurrences starti ng 06/22/2023 until 07/21/2024 Nebulizer therapy HHN Treatment Respiratory Care Routine 0600, 1000, 1400, 1800, 2200 until discontinued starting 03/16/2020, 6 completed [facility] Comment on above: 0600, 1000, 1400, 18 00, 2200 until discontinued starting 03/16/2020, 6 completed Oxygen therapy [Mini mum Data Set] [facility] Comment on above: Daily until disconti nued starting 11/21/2019, 2 completed Daily until disconti nued starting 11/21/2019 PAIN PANEL, UR QUANT PAIN PANEL, UR QUANT Lab Routine Medication monitoring encounter 05/02/2023 3:12 PM EST [facility] Work Phone: End: 08-02-2019 Respiratory Virus PCR Panel Respiratory Virus PCR Panel Microbiology Add-On One Time for 1 Occurrences starting 08/02/2019 until 08/02/2019 [facility] [place] Comment on above: One Time for 1 Occur rences starting 08/02/2019 until 08/02/2019 SPECIMEN VALIDITY, URINE SPECIME N VALIDITY, URINE Lab Routine Medication monitoring encounter 05/02/2023 3:12 PM EST [facility] Work Phone: End: 06-09-2020 Urea nitrogen [Mass/Vol] BUN Lab Routine Malignant neoplasm of exocervix (HCC) 1 Occurrences starting 06/09/2020 until 06/09/2020 [facility] Work [facility]: Comment on above: 1 Occurrences starti ng 06/09/2020 until 06/09/2020 End: 10-27-2019 Urinalysis Urinalysis Lab STAT One Time for 1 Occurrences starting 10/27/2019 until 10/27/2019 [facility] [place] Comment on above: One Time for 1 Occur rences starting 10/27/2019 until 10/27/2019 End: 11-10-2019 US Lower Extremity Venous Right US Lower Extremity Venous Right Imaging Routine Leg swelling 1 Occurrences starting 11/10/2019 until 11/10/2019 [facility] [place] Comment on above: 1 Occurrences starti ng 11/10/2019 until 11/10/2019 US Lower Extremity Venous Right US Lower Extremity Venous Right Imaging Routine Leg swelling 11/10/2019 6:00 PM EDT [facility] Immunizations Immunization Date Immunization Notes Care Provider [facility] 01-12-2025 influenza vaccine A& B surf ant adjuvanted (Fluad) HIGH-DOSE injection 0.5 mL Freddy Linder MD Work Phone: [facility] 01-14-2023 pneumococcal Conjuga te, unspecified formulation Herminia Case MD Work Phone: [facility] Work Phone: 01-14-2023 pneumococcal (PCV20) vaccine, 20 valent (PREVNAR 20) Herminia Case MD Work Phone: [facility] 10-11-2019 zoster vaccine recombinant Melva Innis PA-C Work Phone: [facility] 12-07-2018 influenza, injectabl e, quadrivalent, contains preservative Melva Innis PA-C Work Phone: [facility] 12-07-2018 influenza virus vaccine, unspecified formulation Kisha Reichod SYSTEMS ANALYSIS MANAGER - NAILING MACHINE OPERATOR Work Phone: [facility] 01-10-2018 influenza nasal, unspecified formulation Herminia Case MD Work Phone: [facility] 01-10-2018 influenza virus vaccine, unspecified formulation Joanie Siena [facility] 01-10-2018 influenza, seasonal, injectable Melva Ladonna PA-C Work Phone: [facility] 03-11-2017 pneumococcal polysaccharide vaccine, 23 valent Melva Innis PA-C Work Phone: [facility] Work Phone: 02-15-2017 influenza, injectabl e, quadrivalent, preservative free Melva Ladonna PA-C Work Phone: [facility] 08-08-2016 tetanus toxoid, redu manjula diphtheria toxoid, and acellular pertussis vaccine, adsorbed Joanie Siena [facility] Work Phone: 02-10-2013 influenza, seasonal, injectable, preservative free Melva Ladonna PA-C Work Phone: [facility] 02-15-2012 influenza, seasonal, injectable, preservative free Melva Ladonna PA-C Work Phone: [facility] NEGATED: Highlighted row has not occurred!05-22-2022 Influenza,seasonal,sout radha Hemisphere,quad,preserv Free Martha Flores MD Work Phone: [facility] Comment on above: Deferred: Patient Re fused Payers Date Payer Category Payer Self-pay 2022 Medicare (Managed Care) [facility] DUAL COMPLETE HMO POS SNP [id number] 2022 Medicare HMO [employer] DUAL COMPLET E [id number] 2022 Unknown [id number] 2021 Medicare [employer] MEDICARE [employer] GOLD PLUS [id number] 2021-Present [id number] [place], [place] [address] [facility] [id number] 2021 Medicare HUMANA MEDICARE HUMANA GOLD PLUS O [id number] 2021-Present [phone] [id number] [place] [address] [id number] 2019 Medicaid [id number] 2019 Medicaid [id number] 2019 Medicare MEDICARE MEDICAR E PART A AND B [id number] 2019-Present [phone] [address] [address] [place] [address] [id number] 2019 Medicare [id number]. [id number] .[id number] 2014 Unknown [facility] xxxxxxxxxxxx 2014-Present [phone] [address] [place] [address] xxxxxxxxxxxx [id number] 2014 Unknown [id number] [id number] .[id number] 1955 Unknown [id number] 2.16.840.1.398502.3.579.2 .668 1955 Unknown [id number] 2.16.840.1.636873.3.579.2 .668 1955 Unknown [id number] 2.16.840.1.785287.3.579.2 .668 1955 Unknown [id number] 2.16.840.1.695262.3.579.2 .668 1955 Unknown [id number] 2.16.840.1.511632.3.579.2 .668 Private Health Insurance Unknown [id number] 2.16.840.1.190272.3.579.2 .462 Unknown [id number] 2.16.840.1.073067.3.579.2 .462 Unknown [id number] 2.16.840.1.305305.3.579.2 .462 Unknown [id number] 2.16.840.1.428225.3.579.2 .462 Unknown [id number] 2.16.840.1.830091.3.579.2 .462 Unknown [id number] 2.16.840.1.498950.3.579.2 .462 Unknown [id number] 2.16.840.1.915273.3.579.2 .462 Unknown [id number] .462 Social History Date Type Detail Facility Start: 08-02-2019 End: 01-15-2025 Tobacco smoking status NHIS Former smoker [facility] Start: 1969 End: 11-20-2019 History of tobacco use Current smoker [place] Start: 1969 End: 11-20-2019 History of tobacco use Cigarette Smoker [place] Start: 08-02-2019 End: 01-12-2025 Cigarettes smoked current (pack per day) - Reported [facility] Start: 08-02-2019 End: 10-20-2020 Alcohol intake Current drinker of alcohol (finding) [place] Start: 10-19-2017 Alcohol Comment very rarely [place] Start: 1955 Sex Assigned At Not on file [place] Exposure to SARS-CoV -2 (event) Unable to assess [place] Start: 10-21-2019 End: 01-15-2025 Tobacco use and exposure Never used [place] Start: 07-27-2021 End: 11-06-2022 Exposure to SARS-CoV-2 (event) Not sure [place] Start: 11-05-2019 Alcohol Comment 1-2 times/yr [place] Start: 11-21-2019 Tobacco Comment pt states she quit 4-5 years ago [facility] [place] Start: 11-28-2020 End: 12-30-2023 Alcohol intake Current non-drinker of alcohol (finding) [facility] Start: 05-06-2021 End: 05-21-2022 History SDOH Alcohol Frequency 2 [facility] Start: 05-06-2021 End: 05-21-2022 History SDOH Alcohol Std Drinks 1 [facility] Start: 05-06-2021 History SDOH Social Connections Phone 5 [facility] Start: 05-06-2021 End: 03-05-2022 History SDOH Social Connections Get Together 4 [facility] Start: 05-06-2021 End: 03-05-2022 History SDOH Social Connections Meetings 98 [facility] Start: 05-06-2021 End: 03-05-2022 History SDOH Social Connections Living 3 [facility] Start: 05-06-2021 End: 05-21-2022 History SDOH Physical Activity DPW 0 [facility] Start: 07-11-2018 End: 09-15-2022 Tobacco Comment vaping intermittently [facility] Start: 03-05-2022 End: 01-12-2025 Social connection and isolation panel [facility] Do you belong to any clubs or organizations such as cheondoism groups, unions, fraternal or athletic groups, or school groups? No [facility] How often do you att end meetings of the clubs or organizations you belong to? Patient refused [facility] Are you now , , , , never or living with a partner? [facility] How often to you hav e a drink containing alcohol? Never [facility] How hard is it for y ou to pay for the very basics like food, housing, medical care, and heating Not very hard [facility] Do you feel stress - tense, restless, nervous, or anxious, or unable to sleep at night because your mind is troubled all the time - these days [OSQ] To some extent [facility] (I/We) worried jeannie er (my/our) food would run out before (I/we) got money to buy more. Never true [facility] The food that (I/we) bought just didn't last, and (I/we) didn't have money to get more. DK or Refused [facility] Start: 04-26-2021 Gender identity Identifies as female gender (finding) [facility] Start: 04-26-2021 Sexual orientation Heterosexual (finding) [facility] Start: 05-21-2022 End: 01-20-2025 Alcohol intake Ex-drinker (finding) [facility] Start: 05-21-2022 Alcohol Comment Approx once a year [facility] Are you now , , , , never or living with a partner? [facility] Do you feel stress - tense, restless, nervous, or anxious, or unable to sleep at night because your mind is troubled all the time - these days [OSQ] Only a little [facility] Start: 10-19-2021 Sex Female (finding) [facility] History of tobacco use Passive smoker [facility] How often do you nee d to have someone help you when you read instructions, pamphlets, or other written material from your doctor or pharmacy [SILS] Rarely [facility] if ever smoked [facility] Work Phone: Start: 1955 Sex Assigned At Female [facility] Start: 01-15-2025 Tobacco Comment Started at 15, 0.5 PPD, increased to 2.5 PPD at 31, quit smoking cigarettes in 2019 and started vaping, uses a rechargeable vape, the amount she vapes per day depends on whether she is a home or in rehab. 01/15/2025 [facility] Medical Equipment Procedure Code Equipment Code Equipment Origin al Text Equipment Identifier Dates [employer]-12/19/2019 [id number] Start: 12-19-2019 Comment on above: Description: [employer] Left Chest Regular Size. Screw Josie 7.3x85mm 16mm-Thrd - [id number] Start: 11-07-2022 Screw Josie 7.3x85mm 16mm-Thrd - [id number] Start: 11-07-2022 Functional Status Date Assessment Result Facility 06-06-2024 Total score [AUDIT-C] 0 06/07/19 25 9:46 AM EDT User, Na [facility] 06-06-2024 Within the last year , have you been humiliated or emotionally abused in other ways by your partner or ex-partner? No 06/06/2024 9:46 AM EDT UserNa No [facility] 06-06-2024 Within the last year , have you been afraid of your partner or ex-partner? No 06/06/2024 9:46 AM EDT UserCharliet No [facility] 06-06-2024 Within the last year , have you been raped or forced to have any kind of sexual activity by your partner or ex-partner? No 06/06/2024 9:46 AM EDT UserCharliet No [facility] 06-06-2024 Within the last year , have you been kicked, hit, slapped, or otherwise physically hurt by your partner or ex-partner? No 06/06/2024 9:46 AM EDT UserCharliet No [facility] 06-06-2024 How often to you hav e a drink containing alcohol? Never 06/06/2024 9:46 AM EDT User, Charliet Never [facility] 06-06-2024 Functional status Patient does n ot drink 06/06/2024 9:46 AM EDT User, Charliet Patient does not drink [facility] 06-06-2024 How often do you hav e 6 or more drinks on 1 occasion? Never 06/06/2024 9:46 AM EDT UserCharliet Never [facility] Clinical Notes 09-24-2020 to 01-24-2025 Telephone Encounter - Pradeep Ashraf RCP - 01/24/2025 3:55 PM ESTTelephone Encounter - Pradeep Ashraf RCP - 01/24/2025 3:55 PM Adrian Medina RN - 01/22/2025 6:27 PM ESTDischarge Instructions Note Date & Type Note Facility 01-24-2025 Telephone encounter Note COPD Navigator Note Called patient on home phone. No answer. Left Voicemail. [facility] 01-24-2025 Miscellaneous Notes COPD Navigator Note Called patient on home phone. No answer. Left Voicemail. documented in this encounter [facility] 01-22-2025 Nurse Note Report called to Marisela at [facility]. Belongings packed and sent with patient, including eye glasses. Patient states dentures were already at [facility] [facility], she did not have them during hospitalization. [facility] 01-22-2025 Nurse Note Report called to Marisela at [facility]. Belongings packed and sent with patient, including eye glasses. Patient states dentures were already at [facility], she did not have them during hospitalization. Wound Care consulted for Pressure Injury Prevention. Pt's Jeri score= 18 on 01/15 Pt's pressure points assessed. Pt turned independently in the bed for posterior assessment. Pt's Heels, Buttocks/coccyx, Back, Elbows, Occiput and ears all intact. [place] and blanchable tissues noted to sacrum. Pt [...] Rosalina Cross RN documented in this encounter [facility] 01-22-2025 Progress note Formatting of t his note might be different from the original. Case Management Discharge Summary Note Who you talked to: Name: demetrice Mcgee PLAN: Jail Facility Facility: [facility], Level of Care: LTC, going to be skilled with PT/OT, and Transport: 6 PM [facility] 01-22-2025 Miscellaneous Notes Case Management Discharge Summary Note Who you talked to: Name: demetrice Mcgee PLAN: Jail Facility Facility: [facility], Level of Care: LTC, going to be skilled with PT/OT, and Transport: 6 PM Confirmed pickup time of 6pm by transport [employer] at phone number [phone]. Location of facility drop off is [facility]. Facility notified via Careport, [facility] notified on secure chat. Spoke to facility today, [facility]. Requested for patient to return while authorization is still pending because she lives there. They are agreeable and will follow for [facility] approval. Auth was initiated here by our [facility] and they are aware. Notified them that no 7000 will be completed because we currently have not obtained insurance authorization. Transport requested 4PM in Roundtrip. Awaiting time confirmation. Discharge med list transmitted to [facility] TO [facility] via Careport per [facility] request. 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 Continue on 4L O2 NC, respiratory treatments. ATBX regimen through today for Pseudomonas. Geriatrics/Palliative following. Planned Discharge Disposition: Jail Facility, [facility]. Waiting on response from facility to see [...] received for skilled level of care at [facility]. Planned Discharge Disposition: Jail Facility ([facility]) Barriers/Today we still Wait: Clinical stability, Facility pre-cert, Tool Repair Technician recommendations (comment) (pending OT rec) Length of Stay (Days): 8 GMLOS: 3.5 PT/OT notes both rec return to ECF with PT/OT. Tasked IMMUNOLOGY SPECIALIST Deputy Commissioner to start [facility] Medicare auth for patient to return skilled. [...] - anticipate back tomorrow. Planned Discharge Disposition: Jail Facility ([facility] - plan to return skilled, need auth) Barriers/Today we still Wait: Clinical stability, Facility pre-cert, Tool Repair Technician recommendations (comment) (pending OT rec) Length of Stay (Days): 7 GMLOS: 3.5 CM tasked to follow patient through the weekend to assist with discharge needs. Chart reviewed. Expected Discharge, Rapid Rounding, and Discharge Milestones / Delays updated as appropriate. CM portion of SHAMA complete. Tasked to follow for possible weekend DC back to [facility]. [facility] return with skilled [...] Patient Information Source of Information: Patient Cognition/Language: Cameroonian Permission given to speak with patient agency sales representative/caregiver as indicated: No Confirmation of Payer with patient/family: No Payer Name: [employer] Medicare Dual Complete : N/A Confirmation of Primary Care Physician: dr Herminia Case MD Primary Caregiver: Facility staff If assistance needed, confirmed caregiver ready, willing and able to care for patient at discharge: facility staff Confirmed with: [facility] Living Arrangements Current Residence: Number of Floors Number of Entry Steps: Bed/Bath Levels: Facility: Facility Name: [facility] Plan to Return: Yes Lives with: residents Support Systems: Children, Dtr and son Activities of Daily Living Ambulation: With walker/WC Bathing/Dressing: Indep Elimination/Continence/Toileting : Indep Feeding: Indep Who Assists with Activities of Daily Living: Facility medical staff if needed Instrumental Activities of Daily Living Prescription Coverage: Pharmacy Used: [id number], [place] - [address] [facility] Medication Management: Facility medical staff Transportation/Shopping: [...] for: N/A Additional Information: Patient is from [facility]. Patient states she has lived there since [...] indicated at this time. Planned Discharge Disposition: Jail Facility, returning to [facility]. Updated on clinicals via Careport today. Declined BIPAP. Vapes, smoking cessation. Hx of anxiety/depression. CM will continue to follow for updates and discharge planning. Barriers/Today we still Wait: Clinical stability, Tool Repair Technician recommendations (Pulmonology) Length of Stay (Days): 4 GMLOS: 3.5 Accepted ICU transfer from Dr. Pires Referral placed to return back to [facility] via Careport per [facility] request. Await review and response regarding ability to accept. [facility] notified. Request for IMMUNOLOGY SPECIALIST to place referral to [facility]. CM will follow for updates and discharge planning. Images from the original note were not included. [facility] Palliative Care Transitions of [...] PO intake Debility -increased weakness -admitted from [facility] -PT/OT as able -2nd admission since July 2024 CODE STATUS DISCUSSIONS: -Gonzalo Deluca retains capacity for medical decision-making -HCPOA: daughter Karishma [phone] - Another emergency contact listed is son Jace [phone] - pt admitted from [facility] - met with patient this am, introduced self and role - patient was calm, comfortable, stated she is feeling better - Code status already DNRCCA/DNI - patient stated her goal is to get better and go back to [facility] - provided empathetic listening and emotional support to patient - discussed with bedside RN SYMPTOM MANAGEMENT MEDICATIONS: - not prescribed by our team DISPOSITION: TBD FACILITY/HOME CARE AGENCY NAME: TBD Follow up with Nursing facility Reason for Outpatient/Home/ECF Palliative Care follow-up: N/A Opiate Prescribing - not prescribed by our team SIGNED: Nilesh Frey APRN - NAILING MACHINE OPERATOR 01/13/2025, 8:47 AM documented in this encounter [facility] 01-22-2025 Progress note Formatting of t his note might be different from the original. Confirmed pickup time of 6pm by transport [employer] at phone number [phone]. Location of facility drop off is [facility]. Facility notified via Careport, [facility] notified on secure chat. [facility] 01-22-2025 Progress note Formatting of t his note might be different from the original. Spoke to facility today, [facility]. Requested for patient to return while authorization is still pending because she lives there. They are agreeable and will follow for [facility] approval. Auth was initiated here by our IMMUNOLOGY SPECIALIST and they are aware. Notified them that no 7000 will be completed because we currently have not obtained insurance authorization. [facility] 01-22-2025 Progress note Formatting of t his note might be different from the original. Transport requested 4PM in Roundtrip. Awaiting time confirmation. [facility] 01-22-2025 Progress note Formatting of t his note might be different from the original. Discharge med list transmitted to [facility] request. AUTH IS STILL PENDING: REQUEST TO SET UP TRANSPORT AND SEND DISCHARGE INFO TO FACILITY DID NOT COMPLETE 7000/PATIENT WAS FDC [facility] 01-22-2025 Note [facility] 01-22-2025 Hospital course Narrative Images from the original note were not included. Hospitalist Discharge Summary Gonzalo Deluca : 1955 Admit date: 01/12/2025 Discharge date: 01/22/2025 Admitting Physician: Boy Lynn MD Primary Care Physician: HERMINIA CASE [...] Your Medications These medications were sent to [facility]pharmacy #[id number] - [facility] [address] [place] [id number] predniSONE 10 MG tablet sodium chloride 3 % nebulizer solution You can get these medications from any pharmacy Bring a paper prescription for each of these medications oxyCODONE 15 MG immediate release tablet Information about where to get these medications is not yet available Ask your nurse or doctor about these medications cholecalciferol 50 MCG (1999 UT) tablet pantoprazole 40 MG EC tablet senna-docusate sodium 8.6-50 MG tablet Recommended Follow-up: PCP and pulmonology outpatient in 1-2 weeks. @READMISSIONRISK@ Complexity of Follow up: [] Moderate Complexity: follow up within 7-14 calendar days (31156) [x] Severe Complexity: follow up within 7 calendar days (59145) Follow up Testing, Pending results or Referrals [...] DO Division of Hospitalist Medicine Inpatient Medical Services/[facility] 01/22/2025, 1:50 PM Total time Spent on Discharge: 32 minutes documented in this encounter [facility] 01-22-2025 History of Presen t illness Narrative Images from the original note were not included. PHYSICAL THERAPY [facility] Treatment Note Name/MRN: Gonzalo Deluca ([id number]) Date of : 1955 Age: 69 y.o. Room/Bed: B4-450/B4-450 A Visit #: 3 out of 5 [...] upon presenting deficits prior to discharge to [facility] with PT. Subjective Pt pleasant and agreeable [...] Pt completed gait training with fww at [facility] progressing to SBAx1. Notable SOB present with [...] Medical Center Treatment Note Name/MRN: Gonzalo Deluca ([id number]) Date of : 1955 Age: 69 y.o. Room/Bed: B4450/B4450 A Visit #: 1 out of 3 Discharge Recommendation: ECF with OT Equipment Needed: No Prior Level of Function Prior Level of ADL Function: Independent Prior Level of Mobility: Required Assist; Device: Wheelchair - manual Prior Level of Transfers: Independent Assessment Pt tolerated session fair, continues to be limited by fatigue and SOB. Pt completed x2 STS and functional mobility with FWW at [facility]. Pt SpO2 dropping to 82%, required lengthy [...] Park OT at 01/22/2025 3:05 PM EST [facility] Geriatric Medicine Inpatient Consult Service Admission Date: 01/12/2025 Assessment Principal Problem: COPD exacerbation (HCC) Active Problems: Debility Anxiety and depression Cognitive deficits At risk for delirium Other chronic pain Moderate malnutrition (CMS/HCC) (HCC) Plan Debility --contributing factors include medications, chronic respiratory failure, malnutrition, cognitive decline --using walker/wheelchair at baseline. Living at [facility] since July. Per daughter, she is not eligible for medicaid and may need alternative living arrangement. Social Work consulted. --PT and OT --dietitian following --Continue Vitamin D3 supplement 01/22: Making good progress with therapy - plan to return to [facility] with therapy. Depression and Anxiety --On Wellbutrin [...] facility, however it is being filled at [facility] under prior PCP order for 200mg daily [...] contributing. --Recommend outpatient follow up at [facility] for more in depth cognitive evaluation when in usual state of health if she returns home. 01/22: Stable. Recommend outpatient cognitive evaluation at her facility if she stays there nursing home. Chronic pain --takes Oxycodone 15mg every [...] baseline. Continue plan. OK to discharge to ECF from geriatric perspective once cleared by primary, [...] malnutrition, pneumonia presented to the hospital from [place] [facility] for shortness of breath and hypoxia. [...] (L) 07/30/2024 Lab Results Component Value Date [id number] 07/30/2024 Lab Results Component Value Date VITD25 24 01/16/2025 Reviewed: allergies, previous encounters, active problem lists, medications, and labs [1] Current Facility-Administered Medications: acetaminophen (Tylenol) tablet 650 mg, 650 mg, Oral, q6h PRN, Boy Lynn MD, 650 mg at 01/20/25 0142 albuterol (2.5 MG/3ML) 0.083% nebulizer solution 2.5 mg, 2.5 mg, Nebulization, q2h PRN, Boy Lynn MD aspirin EC tablet 81 mg, 81 mg, Oral, Daily, Boy Lynn MD, 81 mg at 01/22/25 0809 buPROPion XL (Wellbutrin XL) 24 hr tablet 150 mg, 150 mg, Oral, Daily, Boy Lynn MD, 150 mg at 01/22/25 0808 busPIRone (Buspar) tablet 15 mg, 15 mg, Oral, BID, Boy Lynn MD, 15 mg at 01/22/25 0809 cholecalciferol (Vitamin D-3) tablet 2,000 Units, 2,000 Units, Oral, Daily, Saad Telles APRN - NAILING MACHINE OPERATOR, 2,000 Units at 01/22/25 0811 Diclofenac Sodium (Voltaren) 1 % gel 2 g, 2 g, Topical, BID, Austin Walker MD, 2 g at 01/20/25 0809 enoxaparin (Lovenox) syringe 40 mg, 40 mg, SubCUTAneous, Daily, Boy Lynn MD, 40 mg at 01/22/25 0809 fluticasone (Flonase) nasal spray 2 spray, 2 spray, Each Nostril, Daily, Srini Pires MD, 2 spray at 01/22/25 0811 folic acid (Folvite) tablet 1 mg, 1 mg, Oral, Daily, Boy Lynn MD, 1 mg at 01/22/2509 guaiFENesin (Mucinex) 12 hr tablet 600 mg, 600 mg, Oral, BID, Srini Pires MD, 600 mg at 01/22/2509 hydrOXYzine pamoate (Vistaril) capsule 25 mg, 25 mg, Oral, q12h PRN, Austin Walker MD, 25 mg at 01/21/252237 influenza vaccine A&B surf ant adjuvanted (Fluad) HIGH-DOSE injection 0.5 mL, 0.5 mL, IntraMUSCular, Prior to discharge, Boy Lynn MD ipratropium-albuterol (Duo-Neb) 0.5-2.5 mg/3 mL nebulizer solution 3 mL, 3 mL, Nebulization, TID, Boy Lynn MD, 3 mL at 01/22/25922 melatonin tablet 3 mg, 3 mg, Oral, Nightly, Boy Lynn MD, 3 mg at 01/21/252033 methocarbamol (Robaxin) tablet 500 mg, 500 mg, Oral, q8h PRN, Srini Pires MD, 500 mg at 01/21/252237 mirtazapine (Remeron) tablet 15 mg, 15 mg, Oral, Nightly, Boy Lynn MD, 15 mg at 01/21/252033 mometasone-formoterol (Dulera 100) 100-5 MCG/ACT inhaler 2 puff, 2 puff, Inhalation, BID, Srini Pires MD, 2 puff at 01/22/25810 montelukast (Singulair) tablet 10 mg, 10 mg, Oral, Nightly, Boy Lynn MD, 10 mg at 01/21/252033 naloxone (Narcan) injection 0.4 mg, 0.4 mg, IntraVENous, q5 min PRN, Boy Lynn MD ondansetron ODT (Zofran-ODT) disintegrating tablet 4 mg, 4 mg, Oral, q8h PRN, 4 mg at 01/21/2534 OR ondansetron (Zofran) injection 4 mg, 4 mg, IntraVENous, q6h PRN, Boy Lynn MD, 4 mg at 01/12/252038 oxyCODONE (Roxicodone) immediate release tablet 15 mg, 15 mg, Oral, q6h PRN, Ruth العراقي MD, 15 mg at 01/22/25807 pantoprazole (ProtoNix) EC tablet 40 mg, 40 mg, Oral, q AM, Boy Lynn MD, 40 mg at 01/22/25 08 [COMPLETED] predniSONE (Deltasone) tablet 40 mg, 40 mg, Oral, Daily, 40 mg at 01/17/25 1020 FOLLOWED BY [COMPLETED] predniSONE (Deltasone) tablet 30 mg, 30 mg, Oral, Daily, 30 mg at 01/20/25 0808 FOLLOWED BY predniSONE (Deltasone) tablet 20 mg, 20 mg, Oral, Daily, 20 mg at 01/22/25 08 FOLLOWED BY [START ON 01/24/2025] predniSONE (Deltasone) tablet 10 mg, 10 mg, Oral, Daily, Srini Pires MD QUEtiapine (SEROquel) tablet 50 mg, 50 mg, Oral, Nightly PRN, Boy Lynn MD, 50 mg at 01/21/252033 senna-docusate sodium (Senokot-S) 8.6-50 MG tablet 1 tablet, 1 tablet, Oral, BID, Ruth العراقي MD, 1 tablet at 01/22/25 0808 sodium chloride 3 % hypertonic nebulizer solution 4 mL, 4 mL, Nebulization, BID, Srini Pires MD, 4 mL at 01/22/25 0923 Images from the original note were not included. [facility], Pulmonary Medicine [address] [place] [id number] Patient - Gonzalo Deluca, Age - 69 [...] hours. ABGs: No results for input(s): "PHART", "AZZ0YFY", "PO2ART", "EGV4GXD", "SO2ART", "R0DHIHNH" in the last 72 hours. Microbiology: COVID/Flu/RSV: [...] emphysema -Improved. No longer in acute exacerbation -Dulera, DuoNeb's. Resume Breo and Spiriva at discharge -Complete [...] 650 mg, 650 mg, Oral, q6h PRN, Boy Lynn MD, 650 mg at 01/20/25 0142 albuterol (2.5 MG/3ML) 0.083% nebulizer solution 2.5 mg, 2.5 mg, Nebulization, q2h PRN, Boy Lynn MD aspirin EC tablet 81 mg, 81 mg, Oral, Daily, Boy Lynn MD, 81 mg at 01/22/25 0809 buPROPion XL (Wellbutrin XL) 24 hr tablet 150 mg, 150 mg, Oral, Daily, Boy Lynn MD, 150 mg at 01/22/25 0808 busPIRone (Buspar) tablet 15 mg, 15 mg, Oral, BID, Boy Lynn MD, 15 mg at 01/22/25 0809 cholecalciferol (Vitamin D-3) tablet 2,000 Units, 2,000 Units, Oral, Daily, DB Merrill CNP, 2,000 Units at 01/22/25 0811 Diclofenac Sodium (Voltaren) 1 % gel 2 g, 2 g, Topical, BID, Austin Walker MD, 2 g at 01/20/25 0809 enoxaparin (Lovenox) syringe 40 mg, 40 mg, SubCUTAneous, Daily, Boy Lynn MD, 40 mg at 01/22/25 0809 fluticasone (Flonase) nasal spray 2 spray, 2 spray, Each Nostril, Daily, Srini Pires MD, 2 spray at 01/22/25 0811 folic acid (Folvite) tablet 1 mg, 1 mg, Oral, Daily, Boy Lynn MD, 1 mg at 01/22/25 0809 guaiFENesin (Mucinex) 12 hr tablet 600 mg, 600 mg, Oral, BID, Srini Pires MD, 600 mg at 01/22/25 0809 hydrOXYzine pamoate (Vistaril) capsule 25 mg, 25 mg, Oral, q12h PRN, Austin Walker MD, 25 mg at 01/21/252237 influenza vaccine A&B surf ant adjuvanted (Fluad) HIGH-DOSE injection 0.5 mL, 0.5 mL, IntraMUSCular, Prior to discharge, Boy Lynn MD ipratropium-albuterol (Duo-Neb) 0.5-2.5 mg/3 mL nebulizer solution 3 mL, 3 mL, Nebulization, TID, Boy Lynn MD, 3 mL at 01/22/25922 melatonin tablet 3 mg, 3 mg, Oral, Nightly, Boy Lynn MD, 3 mg at 01/21/252033 methocarbamol (Robaxin) tablet 500 mg, 500 mg, Oral, q8h PRN, Srini Pires MD, 500 mg at 01/21/252237 mirtazapine (Remeron) tablet 15 mg, 15 mg, Oral, Nightly, Boy Lynn MD, 15 mg at 01/21/252033 mometasone-formoterol (Dulera 100) 100-5 MCG/ACT inhaler 2 puff, 2 puff, Inhalation, BID, Srini Pires MD, 2 puff at 01/22/25810 montelukast (Singulair) tablet 10 mg, 10 mg, Oral, Nightly, Boy Lynn MD, 10 mg at 01/21/252033 naloxone (Narcan) injection 0.4 mg, 0.4 mg, IntraVENous, q5 min PRN, Boy Lynn MD ondansetron ODT (Zofran-ODT) disintegrating tablet 4 mg, 4 mg, Oral, q8h PRN, 4 mg at 01/21/2534 OR ondansetron (Zofran) injection 4 mg, 4 mg, IntraVENous, q6h PRN, Boy Lynn MD, 4 mg at 01/12/252038 oxyCODONE (Roxicodone) immediate release tablet 15 mg, 15 mg, Oral, q6h PRN, Ruth العراقي MD, 15 mg at 01/22/25 08 pantoprazole (ProtoNix) EC tablet 40 mg, 40 mg, Oral, q AM, Boy Lynn MD, 40 mg at 01/22/25 08 [COMPLETED] predniSONE (Deltasone) tablet 40 mg, 40 mg, Oral, Daily, 40 mg at 01/17/25 1020 FOLLOWED BY [COMPLETED] predniSONE (Deltasone) tablet 30 mg, 30 mg, Oral, Daily, 30 mg at 01/20/25 08 FOLLOWED BY predniSONE (Deltasone) tablet 20 mg, 20 mg, Oral, Daily, 20 mg at 01/22/25806 FOLLOWED BY [START ON 01/24/2025] predniSONE (Deltasone) tablet 10 mg, 10 mg, Oral, Daily, Srini Pires MD QUEtiapine (SEROquel) tablet 50 mg, 50 mg, Oral, Nightly PRN, Boy Lynn MD, 50 mg at 01/21/252033 senna-docusate [...] chronic pain COPD (chronic obstructive pulmonary disease) ([facility]) DDD (degenerative disc disease), cervical Leukocytosis Malignant neoplasm of exocervix ([facility]) Moderate malnutrition (CMS/HCC) ([facility]) Recurrent major depression Pulmonary nodule S/P hysterectomy Sciatica Shortness of breath Supplemental oxygen dependent PNA (pneumonia) H/O: CVA (cerebrovascular accident) Former smoker Nondisplaced fracture of neck of left femur ([facility]) Lumbar compression fracture, closed, initial [...] Intake: (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 +MRSA PCR for MSSA. Admitted to ICU for NIV support, she was weaned off NIV on 01/14, and transferred to [facility]. Pulmonology consulted and supporting +4 L O2 via NC. Geriatrics and palliative care consulted and supporting. Will completed day 10 of Cefepime today. Pending discharge back to [facility]- awaiting auth for skilled rehab as she is resident of LTC. Pleasant and interactive, sitting up in bed [...] (kg): 48 kg Total Energy Requirements (kcals/day): 9494-0488 kcals (30-35 kcals/kg) Weight Used for Protein [...] 93.2# 08/20/24) % Weight Change (Calculated): 13.9 [place] Body Weight (lbs) (Calculated): 120 lbs [place] Body Weight (Kg) (Calculated): 55 kg % [place] Body Weight (Calculated): 88.5 % BMI (kg/m2) [...] current diet Celeste Garcia RDN, LDN, Contact: [phone] Images from the original note were not included. PHYSICAL THERAPY [facility] Treatment Note Name/MRN: Gonzalo Deluca ([id number]) Date of : 1955 Age: 69 y.o. [...] x1) Greer Delarosa PT Hospitalist Progress Note 01/21/[id number]: Please page me ([phone]) for patient care issues. [phone]: Please page [facility] night Hospitalist for any issues. Subjective: Admit Date: 01/12/2025 PCP: HERMINIA CASE MD Room#: B4-450/B4-450 A Interval History: No overnight issues. Denies chest pain or sob today and continues to do very good clinically. Does NOT look sob laying in bed. She denies any abdominal pain, nausea, vomiting. No fevers or chills. Denies any new complaints. Adult diet Regular @[id number]@ 24HR INTAKE/OUTPUT: No intake or output data in the 24 hours ending 01/21/25 1001 Past Medical History: Medical History[1] LABS: CBC: Recent Labs 01/19/25 0052 WBC 8.3 RBC 3.83 HGB 11.0* HCT 36.5 MCV 95.3 RDW 14.0 PLT 252 BMP: Recent Labs 01/19/25 0052 NA 142 [...] is still pending. Today is actually day 12/28 of Cefepime (last day of antibx). She is actually from [facility]. PT OT saw and recommended SNF. She will need authorization to go back to the skilled portion of [facility]. - Continue pulmonary toilet as per pulmonary [...] authorization to go to skilled portion of [facility] Extended Emergency Contact Information Primary Emergency Contact: Karishma Deluca Address: [address] [place] [address] [place] [phone] [facility] Mobile Relation: Daughter Secondary Emergency Contact: Jace Deluca Mobile Relation: Darshan Walker MD Division of Hospitalist Medicine Inpatient Medical Services/[facility] PAGER: Epic chat [1] Past Medical History: Diagnosis Date Abnormal stress test Acute exacerbation of chronic obstructive pulmonary disease (HCC) 04/12/2018 Allergic rhinitis 1956 Arthritis Asthma ([facility]/HCC) Bronchitis Cancer (HCC) skin Cervical cancer ([facility]) Chest pain COPD (chronic obstructive pulmonary disease) ([facility]) USE OXYGEN 3 L AT NIGHT DDD (degenerative disc disease), cervical Defect, retina, with detachment right DJD (degenerative joint disease), lumbar Emphysema lung (HCC) Former smoker Hematuria SCHEDULED FOR THE PROCEDURE /SURGERY ON 02/11/2017 Hypokalemia Lung nodules Near syncope 09/19/2023 Osteoporosis Palpitations Pneumonia [id number] Recurrent major depression Sciatica Thoracic compression fracture ([facility]) Vitamin D deficiency [2] [3] [...] from the original note were not included. [facility], Pulmonary Medicine [address] [place], [place] [id number] Patient - Gonzalo Deluca, Age - 69 y.o. - 1955 Room Number - B4-450/B4-450 A Consulting - Austin Walker MD Primary Care Physician - [id number] Date of Admission - 01/12/2025 9:18 AM [...] PRN Meds[3] Labs: CBC: Recent Labs 01/19/25 0052 WBC 8.3 HGB 11.0* HCT 36.5 PLT 252 MCV 95.3 RDW 14.0 BMP: Recent Labs 01/19/25 0052 NA 142 K 3.9 CL 101 CO2 32* BUN 20 CREATININE 0.58 CALCIUM 8.5* Glucose: Recent Labs 01/19/25 0052 GLUCOSE 136* ABGs: No results for input(s): "PHART", "HJA2KWZ", "PO2ART", "DQE1TTX", "SO2ART", "A7PGVXPN" in the last 72 hours. Microbiology: COVID/Flu/RSV: [...] Discharge planning: Okay to discharge back to [facility] today after antibiotics. Hospital follow up scheduled with Sofia LISA on 02/06/25 Case discussed with nurse and patient Questions and concerns addressed. [1] Allergies Allergen Reactions Pollen Extract Unknown [2] Current Facility-Administered Medications: acetaminophen (Tylenol) tablet 650 mg, 650 mg, Oral, q6h PRN, Byo Lynn MD, 650 mg at 01/20/25 0142 albuterol (2.5 MG/3ML) 0.083% nebulizer solution 2.5 mg, 2.5 mg, Nebulization, q2h PRN, Boy Lynn MD aspirin EC tablet 81 mg, 81 mg, Oral, Daily, Boy Lynn MD, 81 mg at 01/21/25 08 buPROPion XL (Wellbutrin XL) 24 hr tablet 150 mg, 150 mg, Oral, Daily, Boy Lynn MD, 150 mg at 01/21/25 08 busPIRone (Buspar) tablet 15 mg, 15 mg, Oral, BID, Boy Lynn MD, 15 mg at 01/21/25 08 cefepime (Maxipime) 2,000 mg in sodium chloride 0.9 % 50 mL IVPB Mini-Bag Plus, 2,000 mg, IntraVENous, q8h, Boy Lynn MD, Last Rate: 12.5 mL/hr at 01/21/25 08, 2,000 mg at 01/21/25 08 cholecalciferol (Vitamin D-3) tablet 2,000 Units, 2,000 Units, Oral, Daily, Saad Telles APRN - NAILING MACHINE OPERATOR, 2,000 Units at 01/20/25 08 Diclofenac Sodium (Voltaren) 1 % gel 2 g, 2 g, Topical, BID, Austin Walker MD, 2 g at 01/20/25 0809 enoxaparin (Lovenox) syringe 40 mg, 40 mg, SubCUTAneous, Daily, Boy Lynn MD, 40 mg at 01/21/25 08 fluticasone (Flonase) nasal spray 2 spray, 2 spray, Each Nostril, Daily, Srini Pires MD, 2 spray at 01/20/25 08 folic acid (Folvite) tablet 1 mg, 1 mg, Oral, Daily, Boy Lynn MD, 1 mg at 01/21/25 08 guaiFENesin (Mucinex) 12 hr tablet 600 mg, 600 mg, Oral, BID, Srini Pires MD, 600 mg at 01/21/25 08 hydrOXYzine pamoate (Vistaril) capsule 25 mg, 25 mg, Oral, q12h PRN, Austin Walker MD, 25 mg at 01/20/25 181 influenza vaccine A&B surf ant adjuvanted (Fluad) HIGH-DOSE injection 0.5 mL, 0.5 mL, IntraMUSCular, Prior to discharge, Boy Lynn MD ipratropium-albuterol (Duo-Neb) 0.5-2.5 mg/3 mL nebulizer solution 3 mL, 3 mL, Nebulization, TID, Boy Lynn MD, 3 mL at 01/20/251947 melatonin tablet 3 mg, 3 mg, Oral, Nightly, Boy Lynn MD, 3 mg at 01/20/251940 methocarbamol (Robaxin) tablet 500 mg, 500 mg, Oral, q8h PRN, Srini Pires MD, 500 mg at 01/19/252101 mirtazapine (Remeron) tablet 15 mg, 15 mg, Oral, Nightly, Boy Lynn MD, 15 mg at 01/20/251940 mometasone-formoterol (Dulera 100) 100-5 MCG/ACT inhaler 2 puff, 2 puff, Inhalation, BID, Srini Pires MD, 2 puff at 01/20/251943 montelukast (Singulair) tablet 10 mg, 10 mg, Oral, Nightly, Boy Lynn MD, 10 mg at 01/20/251940 naloxone (Narcan) injection 0.4 mg, 0.4 mg, IntraVENous, q5 min PRN, Boy Lynn MD ondansetron ODT (Zofran-ODT) disintegrating tablet 4 mg, 4 mg, Oral, q8h PRN, 4 mg at 01/18/25 1016 OR ondansetron (Zofran) injection 4 mg, 4 mg, IntraVENous, q6h PRN, Boy Lynn MD, 4 mg at 01/12/252038 oxyCODONE (Roxicodone) immediate release tablet 15 mg, 15 mg, Oral, q6h PRN, Ruth العراقي MD, 15 mg at 01/21/25827 pantoprazole (ProtoNix) EC tablet 40 mg, 40 mg, Oral, q AM, Boy Lynn MD, 40 mg at 01/21/25827 [COMPLETED] predniSONE (Deltasone) tablet 40 mg, 40 [...] 50 mg, 50 mg, Oral, Nightly PRN, Boy Lynn MD, 50 mg at 01/20/252137 senna-docusate [...] deficits At risk for delirium COPD exacerbation ([facility]) Hospitalist Progress Note 01/20/2025 [phone]: Please page me ([phone]) for patient care issues. [phone]: Please page [facility] Hospitalist for any issues. Subjective: Admit Date: 01/12/2025 PCP: HERMINIA CASE MD Room#: B4450/[facility] A Interval History: No overnight issues. Denies chest pain or sob today and states she is still breathing fine today and feels like she is at her baseline. Does NOT look sob laying in bed. She denies any abdominal pain, nausea, vomiting. No fevers or chills. Denies any new complaints. Clinically looks good. Adult diet Regular @[id number]@ 24HR INTAKE/OUTPUT: Intake/Output Summary (Last 24 hours) at 01/20/2025 1210 Last data filed at 01/19/2025 1804 Gross per 24 hour Intake 720 ml Output -- Net 720 ml Past Medical History: Medical History[1] LABS: CBC: Recent Labs 01/18/25 0545 01/19/25 0052 WBC 8.1 8.3 RBC 3.94 3.83 HGB 11.5* 11.0* HCT 37.5 36.5 MCV 95.2 95.3 RDW 13.8 14.0 PLT 252 252 BMP: Recent Labs 01/18/25 0545 01/19/25 005 NA 143 142 K 3.1* 3.9 CL [...] - likely infectious etiology. On prednisone taper, tico and Glynn. Continue Cefepime as recommended per Pulmonary. On [...] of Cefepime. Regardless, she is actually [facility]. PT OT saw and recommended SNF. She per case management's DVT, she will need authorization [facility]. - Continue pulmonary toilet as per pulmonary [...] to go to skilled portion of [facility] Extended Emergency Contact Information Primary Emergency Contact: Karishma Deluca Address: [address] [place] [address] [facility] Mobile Relation: Daughter Secondary Emergency Contact: Jace Deluca Mobile Relation: Darshan Austin Walker MD Division of Hospitalist Medicine Inpatient Medical Services/[facility] PAGER: Epic chat [1] Past Medical History: [...] nodules Near syncope 09/19/2023 Osteoporosis Palpitations Pneumonia [id number] Recurrent major depression Sciatica Thoracic compression fracture [...] Medical Center Initial Evaluation Name/MRN: Gonzalo Deluca ([id number]) Evaluation Date: 01/20/2025 Date of : 1955 Admission Date: 01/12/2025 9:18 AM Age: 69 y.o. Room/Bed: B4-450/B4-450 A Discharge Recommendation: ECF with OT Equipment [...] planned discharge for OT on return to [facility]. Admitting Diagnosis: COPDe, respiratory failure, encephalopathy. Performance [...] Problem List Diagnosis Date Noted COPD exacerbation ([facility]) 01/12/2025 Anxiety and depression 08/03/2024 Cognitive deficits 08/03/2024 At risk for delirium 08/03/2024 Severe malnutrition ([facility]) ([facility]) 07/31/2024 Adult failure to thrive 07/30/2024 Falls frequently 09/20/2023 Unintentional weight loss 09/20/2023 Debility 09/20/2023 PFO (patent foramen ovale) ([facility]) 09/20/2023 Lumbar compression fracture, closed, initial encounter ([facility]) 02/13/2023 Nondisplaced fracture of neck of left femur ([facility]) 11/06/2022 Other specified complication of vascular prosthetic devices, implants and grafts, initial encounter 08/06/2021 Moderate malnutrition ([facility]) ([facility]) 01/13/2025 Poor venous access 12/19/2019 H/O: CVA (cerebrovascular accident) 12/14/2019 Malignant neoplasm of exocervix ([facility]) 11/07/2019 S/P hysterectomy 11/07/2019 PNA (pneumonia) 08/02/2019 Leukocytosis 04/13/2018 Shortness of breath 04/13/2018 DDD (degenerative disc disease), cervical 04/12/2018 Recurrent major depression 04/12/2018 Other chronic pain 04/10/2017 COPD (chronic obstructive pulmonary disease) ([facility]) 04/10/2017 Pulmonary nodule 04/10/2017 Sciatica 04/10/2017 Supplemental oxygen dependent 04/10/2017 Former smoker 04/10/2017 Medical Precautions: No active isolations Proper PPE donned/doffed in accordance with facility standards. Fall Risk: Webb Fall Risk Score: 50 (Medium Risk) Webb Fall Risk Score: 50 (High Risk) Precautions/Restrictions: N/A Family/Caregiver Present: none Overall Cognitive Status: WFL Overall Orientation Status: Oriented x4 Social/Functional History Patient admitted from [facility]. Assistive Equipment: front wheeled walker and wheelchair [...] supervision is transferred to a [facility] Therapy Services Occupational Therapist. Goals and/or treatment plan was established in collaboration with patient/family/other representatives. [1] Past Medical History: Diagnosis Date Abnormal stress test Acute exacerbation of chronic obstructive pulmonary disease (HCC) 04/12/2018 Allergic rhinitis 1955 Arthritis Asthma ([facility]/HCC) Bronchitis Cancer (HCC) skin Cervical cancer ([facility]) Chest pain COPD (chronic obstructive pulmonary disease) ([facility]) USE OXYGEN 3 L AT NIGHT DDD (degenerative disc disease), cervical Defect, retina, with detachment right DJD (degenerative joint disease), lumbar Emphysema lung (HCC) Former smoker Hematuria SCHEDULED FOR THE PROCEDURE /SURGERY ON 02/11/2017 Hypokalemia Lung nodules Near syncope 09/19/2023 Osteoporosis Palpitations Pneumonia [id number] Recurrent major depression Sciatica Thoracic compression fracture ([facility]) Vitamin D deficiency [2] Past Surgical History: Procedure Laterality Date CYSTOSCOPY 01/12/2017 OFFICE PROCEDURE CYSTOSCOPY 02/11/2017 C&P bladder biopsy EYE SURGERY detached retina 1994 HYSTERECTOMY 11/06/2019 ABDOMINAL RADICAL HYSTERECTOMY WITH BSO AND PELVIC LYMPH; [facility]EN[facility] OTHER SURGICAL HISTORY Left 12/19/2019 Med Port POWER Regular Size OTHER SURGICAL HISTORY Left 11/07/2022 Percutaneous skeltal fixation femoral fracture TUBAL LIGATION 1992 Images from the original note were not included. PHYSICAL THERAPY [facility] Treatment Note Name/MRN: Gonzalo Deluca ([id number]) Date of : 1955 Age: 69 y.o. Room/Bed: B4-450/B4450 A Visit #: 1 out of 5 [...] 01/26/25 Therapy Time Individual Co-treatment Time In 0949 Time Out 1001 Minutes 12 Timed Code Treatment Minutes: 9 Minutes (gait X1) Teressa King PT Hospitalist Progress Note 01/19/[id number]: Please page ak ([phone]) for patient care issues. [phone]: Please page [facility] Hospitalist for any issues. Subjective: Admit Date: 01/12/2025 PCP: HERMINIA CASE MD Room#: B4-450/B4-450 A Interval History: No overnight issues. Denies chest pain or sob today and states she is still breathing good today. Does NOT look sob laying in bed. She denies any abdominal pain, nausea, vomiting. No fevers or chills. Adult diet Regular @[id number]@ 24HR INTAKE/OUTPUT: Intake/Output Summary (Last 24 hours) [...] Recent Labs 01/17/25 0506 01/18/25 0545 01/19/25 005 NA 141 143 142 K 3.3* 3.1* [...] Information Primary Emergency Contact: Karishma Deluca Address: [address] [place] [address] [place] [phone] [facility] Mobile Relation: Daughter Secondary Emergency Contact: Jace Deluca Mobile Relation: Darshan Walker MD Division of Hospitalist Medicine Inpatient Medical Services/[facility] PAGER: Kd chat [1] Past Medical History: Diagnosis Date [...] nodules Near syncope 09/19/2023 Osteoporosis Palpitations Pneumonia [id number] Recurrent major depression Sciatica Thoracic compression fracture [...] Medical Center Initial Evaluation Name/MRN: Gonzalo Deluca ([id number]) Evaluation Date: 01/19/2025 Date of : 1955 [...] She demo bed mobility IND, transfer to [facility], ambulate with FWW and SBA ~50 ft before needing to sit. Spo2 93% pre-gait, desat to 84% and recover to 90% in ~2 min sitting. She would benefit from PT when return to ECF to improve activity tolerance, safety and mobility [...] Problem List Diagnosis Date Noted COPD exacerbation ([facility]) 01/12/2025 Anxiety and depression 08/03/2024 Cognitive deficits 08/03/2024 At risk for delirium 08/03/2024 Severe malnutrition ([facility]) ([facility]) 07/31/2024 Adult failure to thrive 07/30/2024 Falls frequently 09/20/2023 Unintentional weight loss 09/20/2023 Debility 09/20/2023 PFO (patent foramen ovale) ([facility]) 09/20/2023 Lumbar compression fracture, closed, initial encounter ([facility]) 02/13/2023 Nondisplaced fracture of neck of left femur ([facility]) 11/06/2022 Other specified complication of vascular prosthetic devices, implants and grafts, initial encounter 08/06/2021 Moderate malnutrition ([facility]/HCC) ([facility]) 01/13/2025 Poor venous access 12/19/2019 H/O: CVA (cerebrovascular accident) 12/14/2019 Malignant neoplasm of exocervix ([facility]) 11/07/2019 S/P hysterectomy 11/07/2019 PNA (pneumonia) 08/02/2019 Leukocytosis 04/13/2018 Shortness of breath 04/13/2018 DDD (degenerative disc disease), cervical 04/12/2018 Recurrent major depression 04/12/2018 Other chronic pain 04/10/2017 COPD (chronic obstructive pulmonary disease) ([facility]) 04/10/2017 Pulmonary nodule 04/10/2017 Sciatica [...] Hearing: normal Social/Functional History Patient admitted from [facility]. Assistive Equipment: front wheeled walker and wheelchair [...] Patient Stated Goal: to go back to [facility] Encounter Problems Encounter Problems (Active) Balance Patient [...] 0933 Time Out 0943 Minutes 10 Oseas [place] PT Patient's Physical Therapy Plan of Care supervision is transferred to a [facility] Therapy Services Physical Therapist. Goals and/or [...] nodules Near syncope 09/19/2023 Osteoporosis Palpitations Pneumonia [id number] Recurrent major depression Sciatica Thoracic compression fracture (HCC) Vitamin D deficiency [2] Past Surgical History: Procedure Laterality Date CYSTOSCOPY 01/12/2017 OFFICE PROCEDURE CYSTOSCOPY 02/11/2017 C&P bladder biopsy EYE SURGERY detached retina 1994 HYSTERECTOMY 11/06/2019 ABDOMINAL RADICAL HYSTERECTOMY WITH BSO AND PELVIC LYMPH; [facility] ZIYAD [facility]ENDEZ [facility] OTHER SURGICAL HISTORY Left 12/19/2019 Med Port POWER Regular Size OTHER SURGICAL HISTORY Left 11/07/2022 Percutaneous skeltal fixation femoral fracture TUBAL LIGATION 1992 [facility] Geriatric Medicine Inpatient Consult Service Admission Date: 01/12/2025 Assessment Principal Problem: COPD exacerbation ([facility]) Active Problems: Debility Anxiety and depression Cognitive deficits At risk for delirium Other chronic pain Moderate malnutrition (CMS/HCC) (HCC) Plan Debility --contributing factors include medications, chronic respiratory failure, malnutrition, cognitive decline --using walker/wheelchair at baseline. Living at [facility] since July. Per daughter, she is not [...] facility, however it is being filled at [facility] under prior PCP order for 200mg daily [...] contributing. --Recommend outpatient follow up at [facility] ([facility]) for more in depth cognitive evaluation when in usual state of health if she returns home. 01/18: Stable. 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 Chronic pain --takes Oxycodone 15mg every 6 [...] malnutrition, pneumonia presented to the hospital from [place] [facility] for shortness of breath and hypoxia. [...] (L) 07/30/2024 Lab Results Component Value Date [id number] 07/30/2024 Lab Results Component Value Date VITD25 24 01/16/2025 Reviewed: allergies, previous encounters, active problem lists, medications, and labs [1] Current Facility-Administered Medications: acetaminophen (Tylenol) tablet 650 mg, 650 mg, Oral, q6h PRN, Boy Lynn MD, 650 mg at 01/17/25 2124 albuterol (2.5 MG/3ML) 0.083% nebulizer solution 2.5 mg, 2.5 mg, Nebulization, q2h PRN, Boy Lynn MD aspirin EC tablet 81 mg, 81 mg, Oral, Daily, Boy Lynn MD, 81 mg at 01/18/25 1016 buPROPion XL (Wellbutrin XL) 24 hr tablet 150 mg, 150 mg, Oral, Daily, Boy Lynn MD, 150 mg at 01/18/25 1016 busPIRone (Buspar) tablet 15 mg, 15 mg, Oral, BID, Boy Lynn MD, 15 mg at 01/18/25 1017 cefepime (Maxipime) 2,000 mg in sodium chloride 0.9 % 50 mL IVPB Mini-Bag Plus, 2,000 mg, IntraVENous, q8h, Boy Lynn MD, Stopped at 01/18/25 1430 Diclofenac Sodium (Voltaren) 1 % gel 2 g, 2 g, Topical, BID, Austin Walker MD, 2 g at 01/18/25 1512 enoxaparin (Lovenox) syringe 40 mg, 40 mg, SubCUTAneous, Daily, Boy Lynn MD, 40 mg at 01/18/25 1018 fluticasone (Flonase) nasal spray 2 spray, 2 spray, Each Nostril, Daily, Srini Pires MD, 2 spray at 01/18/25 1019 folic acid (Folvite) tablet 1 mg, 1 mg, Oral, Daily, Boy Lynn MD, 1 mg at 01/18/25 1018 guaiFENesin (Mucinex) 12 hr tablet 600 mg, 600 mg, Oral, BID, Srini Pires MD, 600 mg at 01/18/25 1018 influenza vaccine A&B surf ant adjuvanted (Fluad) HIGH-DOSE injection 0.5 mL, 0.5 mL, IntraMUSCular, Prior to discharge, Boy Lynn MD ipratropium-albuterol (Duo-Neb) 0.5-2.5 mg/3 mL nebulizer solution 3 mL, 3 mL, Nebulization, TID, Boy Lynn MD, 3 mL at 01/18/25 1404 magnesium sulfate IVPB premix 2,000 mg, 2,000 mg, IntraVENous, Once, Austin Walker MD, Last Rate: 25 mL/hr at 01/18/25 1512, 2,000 mg at 01/18/25 1512 melatonin tablet 3 mg, 3 mg, Oral, Nightly, Boy Lynn MD, 3 mg at 01/17/25 2125 methocarbamol (Robaxin) tablet 500 mg, 500 mg, Oral, q8h PRN, Srini Pires MD, 500 mg at 01/18/25 1033 mirtazapine (Remeron) tablet 15 mg, 15 mg, Oral, Nightly, Boy Lynn MD, 15 mg at 01/17/25 2125 mometasone-formoterol (Dulera 100) 100-5 MCG/ACT inhaler 2 puff, 2 puff, Inhalation, BID, Srini Pires MD, 2 puff at 01/18/25 1210 montelukast (Singulair) tablet 10 mg, 10 mg, Oral, Nightly, Boy Lynn MD, 10 mg at 01/17/252124 naloxone (Narcan) injection 0.4 mg, 0.4 mg, IntraVENous, q5 min PRN, Boy Lynn MD ondansetron ODT (Zofran-ODT) disintegrating tablet 4 mg, 4 mg, Oral, q8h PRN, 4 mg at 01/18/25 1016 OR ondansetron (Zofran) injection 4 mg, 4 mg, IntraVENous, q6h PRN, Boy Lynn MD, 4 mg at 01/12/252038 oxyCODONE (Roxicodone) immediate release tablet 15 mg, 15 mg, Oral, q6h PRN, Ruth العراقي MD, 15 mg at 01/18/251209 pantoprazole (ProtoNix) EC tablet 40 mg, 40 mg, Oral, q AM, Boy Lynn MD, 40 mg at 01/18/25 1018 [...] 50 mg, 50 mg, Oral, Nightly PRN, Boy Lynn MD, 50 mg at 01/15/252058 senna-docusate sodium (Senokot-S) 8.6-50 MG tablet 1 tablet, 1 tablet, Oral, BID, Ruth العراقي MD, 1 tablet at 01/17/252124 sodium chloride 3 % hypertonic nebulizer solution 4 mL, 4 mL, Nebulization, BID, Srini Pires MD, 4 mL at 01/18/25 0825 Images from the original note were not included. [facility], Pulmonary Medicine [address] [place] [address] Patient - Gonzalo Deluca, Age - 69 y.o. - 1955 Room Number - B4-450/[id number] A Consulting - Austin Walker MD Primary Care Physician - HERMINIA CASE MD [facility] # - [id number] Date of Admission - 01/12/2025 9:18 AM [...] 95.2 RDW 13.7 13.8 BMP: Recent Labs 01/16/2552601/17/25 0506 01/18/25 0545 NA 142 141 143 K 3.7 3.3* 3.1* CL 100 99 111* CO2 33* 37* 29 BUN 22 16 17 CREATININE 0.52* 0.44* 0.45* CALCIUM 8.4* 8.1* 6.7* MG -- 1.8 1.4* Glucose: Recent Labs 01/16/2552601/17/25 0506 01/18/25 0545 GLUCOSE 90 102 85 ABGs: No results for input(s): "PHART", "JLJ0BKJ", "PO2ART", "VBL9QRT", "SO2ART", "Z6PPTGMZ" in the last 72 hours. Microbiology: COVID/Flu/RSV: [...] 650 mg, 650 mg, Oral, q6h PRN, Boy Lynn MD, 650 mg at 01/17/254 albuterol (2.5 MG/3ML) 0.083% nebulizer solution 2.5 mg, 2.5 mg, Nebulization, q2h PRN, Boy Lynn MD aspirin EC tablet 81 mg, 81 mg, Oral, Daily, Boy Lynn MD, 81 mg at 01/17/25 1018 buPROPion XL (Wellbutrin XL) 24 hr tablet 150 mg, 150 mg, Oral, Daily, Boy Lynn MD, 150 mg at 01/17/25 1017 busPIRone (Buspar) tablet 15 mg, 15 mg, Oral, BID, Boy Lynn MD, 15 mg at 01/17/255 cefepime (Maxipime) 2,000 mg in sodium chloride 0.9 % 50 mL IVPB Mini-Bag Plus, 2,000 mg, IntraVENous, q8h, Boy Lynn MD, Last Rate: 12.5 mL/hr at 01/18/25 0125, 2,000 mg at 01/18/25 0125 enoxaparin (Lovenox) syringe 40 mg, 40 mg, SubCUTAneous, Daily, Boy Lynn MD, 40 mg at 01/17/25 1020 fluticasone (Flonase) nasal spray 2 spray, 2 spray, Each Nostril, Daily, Srini Pires MD, 2 spray at 01/16/25 0958 folic acid (Folvite) tablet 1 mg, 1 mg, Oral, Daily, Boy Lynn MD, 1 mg at 01/17/25 1018 guaiFENesin (Mucinex) 12 hr tablet 600 mg, 600 mg, Oral, BID, Srini Pires MD, 600 mg at 01/17/255 influenza vaccine A&B surf ant adjuvanted (Fluad) HIGH-DOSE injection 0.5 mL, 0.5 mL, IntraMUSCular, Prior to discharge, Boy Lynn MD ipratropium-albuterol (Duo-Neb) 0.5-2.5 mg/3 mL nebulizer solution 3 mL, 3 mL, Nebulization, TID, Boy Lynn MD, 3 mL at 01/18/25 0815 magnesium sulfate IVPB premix 2,000 mg, 2,000 mg, IntraVENous, Once, Austin Walker MD melatonin tablet 3 mg, 3 mg, Oral, Nightly, Boy Lynn MD, 3 mg at 01/17/252124 methocarbamol (Robaxin) tablet 500 mg, 500 mg, Oral, q8h PRN, Srini Pires MD, 500 mg at 01/17/25 153 mirtazapine (Remeron) tablet 15 mg, 15 mg, Oral, Nightly, Boy Lynn MD, 15 mg at 01/17/252124 mometasone-formoterol (Dulera 100) 100-5 MCG/ACT inhaler 2 puff, 2 puff, Inhalation, BID, Srini Pires MD, 2 puff at 01/17/252125 montelukast (Singulair) tablet 10 mg, 10 mg, Oral, Nightly, Boy Lynn MD, 10 mg at 01/17/252124 naloxone (Narcan) injection 0.4 mg, 0.4 mg, IntraVENous, q5 min PRN, Boy Lynn MD ondansetron ODT (Zofran-ODT) disintegrating tablet 4 mg, 4 mg, Oral, q8h PRN, 4 mg at 01/17/25 222 OR ondansetron (Zofran) injection 4 mg, 4 mg, IntraVENous, q6h PRN, Boy Lynn MD, 4 mg at 01/12/252038 oxyCODONE (Roxicodone) immediate release tablet 15 mg, 15 mg, Oral, q6h PRN, Ruth العراقي MD, 15 mg at 01/18/25 0548 pantoprazole (ProtoNix) EC tablet 40 mg, 40 mg, Oral, q AM, Boy Lynn MD, 40 mg at 01/17/25 1017 [...] 50 mg, 50 mg, Oral, Nightly PRN, Boy Lynn MD, 50 mg at 01/15/252058 senna-docusate [...] delirium COPD exacerbation (HCC) Hospitalist Progress Note 01/18/2025 [phone]: Please page me ([phone]) for patient care issues. [phone]: Please page [facility] Hospitalist for any issues. Subjective: Admit Date: 01/12/2025 PCP: HERMINIA CASE MD Room#: [id number]/[id number] A Interval History: No overnight issues. Denies chest pain or sob today and states she is still breathing good today. Does NOT look sob laying in bed. She denies any abdominal pain, nausea, vomiting. No fevers or chills. Adult diet Regular @[id number]@ 24HR INTAKE/OUTPUT: Intake/Output Summary (Last 24 hours) at 01/18/2025 0846 Last data filed at 01/17/2025 1309 Gross per 24 hour Intake 240 ml Output -- Net 240 ml Past Medical History: Medical History[1] LABS: CBC: Recent Labs 01/17/25 0506 01/18/25 0545 WBC 7.1 8.1 RBC 3.77* 3.94 HGB 11.0* 11.5* HCT 35.7 37.5 MCV 94.7 95.2 RDW 13.7 13.8 PLT 205 252 BMP: Recent Labs 01/16/25 0501/17/25 0506 01/18/25 0545 NA 142 141 143 K [...] Information Primary Emergency Contact: Karishma Deluca Address: [address] [place] [address] [place] [id number] [facility] Mobile Relation: Daughter Secondary Emergency Contact: Jace Deluca Mobile Relation: Darshan Walker MD Division of Hospitalist Medicine Inpatient Medical Services/[facility] PAGER: Hydrophi chat [1] Past Medical History: Diagnosis Date Abnormal stress test Acute exacerbation of chronic obstructive pulmonary disease (HCC) 04/12/2018 Allergic rhinitis 1956 Arthritis Asthma ([facility]HS/HCC) Bronchitis Cancer (HCC) skin Cervical cancer (HCC) Chest pain COPD (chronic obstructive pulmonary disease) ([facility]) USE OXYGEN 3 L AT NIGHT DDD (degenerative disc disease), cervical Defect, retina, with detachment right DJD (degenerative joint disease), lumbar Emphysema lung (HCC) Former smoker Hematuria SCHEDULED FOR THE PROCEDURE /SURGERY ON 02/11/2017 Hypokalemia Lung nodules Near syncope 09/19/2023 Osteoporosis Palpitations Pneumonia [id number] Recurrent major depression Sciatica Thoracic compression fracture [...] from the original note were not included. [facility], Pulmonary Medicine [address] [place] [address] Patient - Gonzalo Deluca, Age - 69 y.o. - 1955 Room Number - [id number]/[id number] A Consulting - Austin Walker MD Primary Care Physician - [id number] Date of Admission - 01/12/2025 9:18 AM Hospital Day - 5 Chief Complaint: oGnzalo Deluca is a 69 y.o. female who [...] Medications[2] PRN Meds[3] Labs: CBC: Recent Labs 01/15/25 0533 01/17/25 0506 WBC 6.6 7.1 HGB 12.0 10.9* 11.0* HCT 35.6 35.7 PLT 185 205 MCV 95.7 94.7 RDW 13.5 13.7 BMP: Recent Labs 01/15/25 0533 01/16/25 0527 01/17/25 0506 NA 141 142 141 K 4.3 3.7 3.3* CL 100 100 99 CO2 35* 33* 37* BUN 18 22 16 CREATININE 0.52* 0.52* 0.44* CALCIUM 8.7* 8.4* 8.1* MG 1.8 -- 1.8 PHOS 2.1* -- -- Glucose: Recent Labs 01/15/25 0533 01/16/25 0527 01/17/25 0506 GLUCOSE 148* 90 102 ABGs: Recent Labs 01/15/25 0533 [id number] Nasal Cannula (LPM) Microbiology: COVID/Flu/RSV: Negative Respiratory [...] 650 mg, 650 mg, Oral, q6h PRN, Boy Lynn MD, 650 mg at 01/16/252021 albuterol (2.5 MG/3ML) 0.083% nebulizer solution 2.5 mg, 2.5 mg, Nebulization, q2h PRN, Boy Lynn MD aspirin EC tablet 81 mg, 81 mg, Oral, Daily, Boy Lynn MD, 81 mg at 01/17/25 1018 buPROPion XL (Wellbutrin XL) 24 hr tablet 150 mg, 150 mg, Oral, Daily, Boy Lynn MD, 150 mg at 01/17/25 1017 busPIRone (Buspar) tablet 15 mg, 15 mg, Oral, BID, Boy Lynn MD, 15 mg at 01/17/25 1019 cefepime (Maxipime) 2,000 mg in sodium chloride 0.9 % 50 mL IVPB Mini-Bag Plus, 2,000 mg, IntraVENous, q8h, Boy Lynn MD, Last Rate: 12.5 mL/hr at 01/17/25 1021, 2,000 mg at 01/17/25 1021 enoxaparin (Lovenox) syringe 40 mg, 40 mg, SubCUTAneous, Daily, Boy Lynn MD, 40 mg at 01/17/25 1020 fluticasone (Flonase) nasal spray 2 spray, 2 spray, Each Nostril, Daily, Srini Pires MD, 2 spray at 01/16/25 0958 folic acid (Folvite) tablet 1 mg, 1 mg, Oral, Daily, Boy Lynn MD, 1 mg at 01/17/25 1018 guaiFENesin (Mucinex) 12 hr tablet 600 mg, 600 mg, Oral, BID, Srini Pires MD, 600 mg at 01/17/25 1017 influenza vaccine A&B surf ant adjuvanted (Fluad) HIGH-DOSE injection 0.5 mL, 0.5 mL, IntraMUSCular, Prior to discharge, Boy Lynn MD ipratropium-albuterol (Duo-Neb) 0.5-2.5 mg/3 mL nebulizer solution 3 mL, 3 mL, Nebulization, TID, Boy Lynn MD, 3 mL at 01/17/25 0848 melatonin tablet 3 mg, 3 mg, Oral, Nightly, Boy Lynn MD, 3 mg at 01/16/252021 methocarbamol (Robaxin) tablet 500 mg, 500 mg, Oral, q8h PRN, Srini Pires MD, 500 mg at 01/16/252021 mirtazapine (Remeron) tablet 15 mg, 15 mg, Oral, Nightly, Boy Lynn MD, 15 mg at 01/16/252021 mometasone-formoterol (Dulera 100) 100-5 MCG/ACT inhaler 2 puff, 2 puff, Inhalation, BID, Srini Pires MD, 2 puff at 01/17/25 0917 montelukast (Singulair) tablet 10 mg, 10 mg, Oral, Nightly, Boy Lynn MD, 10 mg at 01/16/252021 naloxone (Narcan) injection 0.4 mg, 0.4 mg, IntraVENous, q5 min PRN, Boy Lynn MD ondansetron ODT (Zofran-ODT) disintegrating tablet 4 mg, 4 mg, Oral, q8h PRN, 4 mg at 01/17/25 1031 OR ondansetron (Zofran) injection 4 mg, 4 mg, IntraVENous, q6h PRN, Boy Lynn MD, 4 mg at 01/12/252038 oxyCODONE (Roxicodone) immediate release tablet 15 mg, 15 mg, Oral, q6h PRN, Ruth العراقي MD, 15 mg at 01/17/25 1016 pantoprazole (ProtoNix) EC tablet 40 mg, 40 mg, Oral, q AM, Boy Lynn MD, 40 mg at 01/17/25 1017 [...] 50 mg, 50 mg, Oral, Nightly PRN, Boy Lynn MD, 50 mg at 01/15/25 205 senna-docusate sodium (Senokot-S) 8.6-50 MG tablet 1 [...] chronic pain COPD (chronic obstructive pulmonary disease) ([facility]) DDD (degenerative disc disease), cervical Leukocytosis Malignant neoplasm of exocervix ([facility]) Moderate malnutrition (CMS/HCC) ([facility]) Recurrent major depression Pulmonary nodule S/P hysterectomy Sciatica Shortness of breath Supplemental oxygen dependent PNA (pneumonia) H/O: CVA (cerebrovascular accident) Former smoker Nondisplaced fracture of neck of left femur ([facility]) Lumbar compression fracture, closed, initial encounter ([facility]) Severe malnutrition (CMS/HCC) ([facility]) Falls frequently Unintentional weight loss Debility PFO (patent foramen ovale) ([facility]/HCC) Adult failure to thrive Anxiety and depression [...] Intake: (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) Weight Loss: (regaining some weight back; 89# (07/2024) cbw 106#) Body Fat Loss: (Moderate body fat loss) Orbital, Triceps, Buccal region Muscle Mass Loss: (Moderate muscle mass loss) Temples (temporalis), Clavicles (pectoralis & deltoids), Hand (interosseous), Scapula (trapezius) Fluid Accumulation: No significant fluid 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 [phone]: Please page [facility] Hospitalist for any issues. Subjective: [...] No fevers or chills. Adult diet Regular @[id number]@ 24HR INTAKE/OUTPUT: Intake/Output Summary (Last 24 hours) at 01/17/2025 09 Last data filed at 01/16/2025 1746 Gross per 24 hour Intake 480 ml Output -- Net 480 ml Past Medical History: Medical History[1] LABS: CBC: Recent Labs 01/15/25 0533 01/17/25 0506 WBC 6.6 7.1 RBC 3.72* 3.77* HGB 12.0 10.9* 11.0* HCT 35.6 35.7 MCV 95.7 94.7 RDW 13.5 13.7 PLT 185 205 BMP: Recent Labs 01/15/25 0533 01/16/25 0527 01/17/25 0506 NA 141 142 141 [...] - likely infectious etiology. On prednisone taper, duhanh and Dulera. Continue Cefepime as recommended per [...] Information Primary Emergency Contact: Karishma Deluca Address: [address] [place] [address] [place] [address] [facility] Mobile Relation: Daughter Secondary Emergency Contact: Jace Deluca Mobile Relation: Darshan Walker MD Division of Hospitalist Medicine Inpatient Medical Services/[facility] PAGER: Epic chat [1] Past Medical History: Diagnosis Date Abnormal stress test Acute exacerbation of chronic obstructive pulmonary disease (HCC) 04/12/2018 Allergic rhinitis 1956 Arthritis Asthma ([facility]/HCC) Bronchitis Cancer (HCC) skin Cervical cancer (HCC) Chest pain COPD (chronic obstructive pulmonary disease) ([facility]) USE OXYGEN 3 L AT NIGHT DDD (degenerative disc disease), cervical Defect, retina, with detachment right DJD (degenerative joint disease), lumbar Emphysema lung (HCC) Former smoker Hematuria SCHEDULED FOR THE PROCEDURE /SURGERY ON 02/11/2017 Hypokalemia Lung nodules Near syncope 09/19/2023 Osteoporosis Palpitations Pneumonia [id number] Recurrent major depression Sciatica Thoracic compression fracture [...] BID sodium chloride, 4 mL, Nebulization, BID [facility] Geriatric Medicine Inpatient Consult Service Admission Date: 01/12/2025 Assessment Principal Problem: COPD exacerbation (HCC) Active Problems: Debility Anxiety and depression Cognitive deficits At risk for delirium Other chronic pain Moderate malnutrition (CMS/HCC) (HCC) Plan Debility --contributing factors include medications, chronic respiratory failure, malnutrition, cognitive decline --using walker/wheelchair at baseline. Living at [facility] since July. Per daughter, she is not [...] facility, however it is being filled at [facility] under prior PCP order for 200mg daily [...] contributing. --Recommend outpatient follow up at [facility] ([facility]) for more in depth [...] malnutrition, pneumonia presented to the hospital from [place] for shortness of breath and hypoxia. [...] (L) 07/30/2024 Lab Results Component Value Date [id number] 639 07/30/2024 Lab Results Component Value Date VITD25 24 01/16/2025 [1] Current Facility-Administered Medications: acetaminophen (Tylenol) tablet 650 mg, 650 mg, Oral, q6h PRN, Boy Lynn MD, 650 mg at 01/14/25 1636 albuterol (2.5 MG/3ML) 0.083% nebulizer solution 2.5 mg, 2.5 mg, Nebulization, q2h PRN, Boy Lynn MD aspirin EC tablet 81 mg, 81 mg, Oral, Daily, Boy Lynn MD, 81 mg at 01/16/25 0956 buPROPion XL (Wellbutrin XL) 24 hr tablet 150 mg, 150 mg, Oral, Daily, Boy Lynn MD, 150 mg at 01/16/25 0957 busPIRone (Buspar) tablet 15 mg, 15 mg, Oral, BID, Boy Lynn MD, 15 mg at 01/16/25 0956 cefepime (Maxipime) 2,000 mg in sodium chloride 0.9 % 50 mL IVPB Mini-Bag Plus, 2,000 mg, IntraVENous, q8h, Boy Lynn MD, Stopped at 01/16/25 0958 enoxaparin (Lovenox) syringe 40 mg, 40 mg, SubCUTAneous, Daily, Boy Lynn MD, 40 mg at 01/16/25 0956 fluticasone (Flonase) nasal spray 2 spray, 2 spray, Each Nostril, Daily, Srini Pires MD, 2 spray at 01/16/25 0958 folic acid (Folvite) tablet 1 mg, 1 mg, Oral, Daily, Boy Lynn MD, 1 mg at 01/16/25 1244 guaiFENesin (Mucinex) 12 hr tablet 600 mg, 600 mg, Oral, BID, Srini Pires MD, 600 mg at 01/16/25 0956 influenza vaccine A&B surf ant adjuvanted (Fluad) HIGH-DOSE injection 0.5 mL, 0.5 mL, IntraMUSCular, Prior to discharge, Boy Lynn MD ipratropium-albuterol (Duo-Neb) 0.5-2.5 mg/3 mL nebulizer solution 3 mL, 3 mL, Nebulization, TID, Boy Lynn MD, 3 mL at 01/16/25 0809 melatonin tablet 3 mg, 3 mg, Oral, Nightly, Boy Lynn MD, 3 mg at 01/15/25 2100 methocarbamol (Robaxin) tablet 500 mg, 500 mg, Oral, q8h PRN, Srini Pires MD, 500 mg at 01/14/25 1718 mirtazapine (Remeron) tablet 15 mg, 15 mg, Oral, Nightly, Boy Lynn MD, 15 mg at 01/15/25 2100 mometasone-formoterol (Dulera 100) 100-5 MCG/ACT inhaler 2 puff, 2 puff, Inhalation, BID, Srini Pires MD, 2 puff at 01/15/25 103 montelukast (Singulair) tablet 10 mg, 10 mg, Oral, Nightly, Boy Lnyn MD, 10 mg at 01/15/252058 mupirocin (Bactroban) 2 % ointment 1 Application, 1 Application, Nasal, BID, Boy Lynn MD, 1 Application at 01/16/25 124 naloxone (Narcan) injection 0.4 mg, 0.4 mg, IntraVENous, q5 min PRN, Boy Lynn MD ondansetron ODT (Zofran-ODT) disintegrating tablet 4 mg, 4 mg, Oral, q8h PRN, 4 mg at 01/15/25 0909 OR ondansetron (Zofran) injection 4 mg, 4 mg, IntraVENous, q6h PRN, Boy Lynn MD, 4 mg at 01/12/252038 oxyCODONE (Roxicodone) immediate release tablet 15 mg, 15 mg, Oral, q6h PRN, Ruth العراقي MD, 15 mg at 01/16/25 100 pantoprazole (ProtoNix) EC tablet 40 mg, 40 mg, Oral, q AM, Boy Lynn MD, 40 mg at 01/16/25 0956 [...] 50 mg, 50 mg, Oral, Nightly PRN, Boy Lynn MD, 50 mg at 01/15/252058 senna-docusate sodium (Senokot-S) 8.6-50 MG tablet 1 tablet, 1 tablet, Oral, BID, Ruth العراقي MD sodium chloride 3 % hypertonic nebulizer solution 4 mL, 4 mL, Nebulization, BID, Srini Pires MD, 4 mL at 01/16/25 0809 Hospitalist Progress Note 01/16/[phone]: Please page me ([phone]) for patient care issues. [phone]: Please page [facility] Hospitalist for any issues. Subjective: Admit Date: 01/12/2025 PCP: HERMINIA CASE MD Room#: [id number]/[id number] A Interval History: No overnight issues. Denies chest pain or sob (although visibly looked a little sob??). States she is not sob at rest but only with exertion. Currently laying in bed. No abdominal pain, nausea, vomiting. No fevers or chills. Adult diet Regular @[id number]@ 24HR INTAKE/OUTPUT: Intake/Output Summary (Last 24 hours) [...] Recent Labs 01/14/25 0344 01/15/25 0533 01/16/25 05 NA 144 141 142 K 4.0 4.3 [...] Information Primary Emergency Contact: Karishma Deluca Address: [address] [place] [address] Mobile Relation: Daughter Secondary Emergency Contact: Jace Deluca Mobile Relation: Darshan Walker MD Division of Hospitalist Medicine Inpatient Medical Services/[facility] PAGER: Epic chat [1] Past Medical History: Diagnosis Date Abnormal stress test Acute exacerbation of chronic obstructive pulmonary disease (HCC) 04/12/2018 Allergic rhinitis 1956 Arthritis Asthma ([facility]/HCC) Bronchitis Cancer (HCC) skin Cervical cancer (HCC) Chest pain COPD (chronic obstructive pulmonary disease) (HCC) USE OXYGEN 3 L AT NIGHT DDD (degenerative disc disease), cervical Defect, retina, with detachment right DJD (degenerative joint disease), lumbar Emphysema lung (HCC) Former smoker Hematuria SCHEDULED FOR THE PROCEDURE /SURGERY ON 02/11/2017 Hypokalemia Lung nodules Near syncope 09/19/2023 Osteoporosis Palpitations Pneumonia [id number] Recurrent major depression Sciatica Thoracic compression fracture [...] BID sodium chloride, 4 mL, Nebulization, BID [facility] Respiratory Care Department Progress Note [...] from the original note were not included. [facility] Smoking Cessation Progress Note Smoking Cessation Intervention Session type: initial Session length: 15 minutes Smoking History: Started at 15, 0.5 PPD, increased to 2.5 PPD at 31, quit smoking cigarettes in 2020 and started vaping, uses a rechargeable vape, [...] chronic hypoxic respiratory failure. Was residing at [facility]. Interval Events: Off NIV last night. Reports breathing improved. Some cough and congestion. Scheduled Meds:Scheduled Meds[1] Continuous Infusions:Continuous Meds[2] Objective: Last Vitals: BP MAP 137/99 (01/15/25700) 109 (01/15/25700) Arterial BP MAP Temp 37.3 C (99.2 F) (01/15/25451) Pulse 106 (01/15/25700) Resp (!) 33 (01/15/25700) SpO2 96 % (10/28/25 0602) Weight 48.1 kg (106 lb) (01/13/25 0600) BMI Body mass index is 18.19 kg/m . I/O: 01/14 07 - 01/15 659 In: 1475 [P.O.:1000; I.V.:475] [...] Normal [] Scar/Lesion/Mass Inspection of teeth/lips/gums Dentition: [][place] Teeth []Dentures Lips/Gums: []Intact []Lesion Present Mucosa: [x][place] [x]Moist []Dry Neck: External Appearance Overall Appearance: [...] within last 24 hours- BMP: Recent Labs 01/13/25 0417 01/14/25 0344 01/15/25 0533 NA 139 144 141 K 4.7 4.0 4.3 CL 101 101 100 CO2 34* 36* 35* BUN 17 20 18 CREATININE 0.49* 0.55* 0.52* CALCIUM 8.6* 8.7* 8.7* MG -- -- 1.8 PHOS -- -- 2.1* LFTs: Recent Labs 01/12/25 0945 01/13/25 0417 AST 33 27 ALT 39* 33* PROT 7.1 6.4 ALBUMIN 3.3 2.9* BILITOT 0.4 0.3 ALKPHOS 154* 124 Glucose: Recent Labs 01/12/25 0945 01/13/25 0417 01/14/25 0344 01/15/25 0533 GLUCOSE 138* 98 93 148* [...] 0658 01/15/25 0533 PHART -- 7.391 -- [id number] -- 61.8* -- PO2ART -- 73.2* -- [id number] -- 36.7* -- [id number] BiPAP BiPAP Nasal Cannula (LPM) Lactic Acid: [...] - creatinine clearance >30 Disposition: transfer to [facility], pulmonary to follow - consult placed. [...] capacity for medical decision-making -HCPOA: daughter Karishma [phone] - Another emergency contact listed is son Jace [phone] - pt admitted from [facility] - met with patient this am, introduced self and role - patient was calm, comfortable, stated she is feeling better - Code status already DNRCCA/DNI - patient stated her goal is to get better and go back to [facility] - provided empathetic listening and emotional support [...] PO intake Debility -increased weakness -admitted from [facility] -PT/OT as able -2nd admission since [...] is a 69 y.o. female admitted to [facility] 01/12 for SOB. Patient seen and examined [...] single Children: 2 adult child(kyler) Living status: group home Work history: Retired due to disability [place] status: No Hinduism sharla: None ROS: See palliative care ROS/ESAS below; All other systems were reviewed and are negative. [place] Symptom Assessment Score [place] Score Pain Score (if non-verbal, add .FLACC [...] time Ruth العراقي MD Spiritual Care Note [facility] Palliative Care Patient Name:Gonzalo Deluca Chief [...] and when patient is able. Debriefed: with head custodian team. Charley Read 01/14/25 ICU Progress Note Name: Gonzalo Deluca : 1955(69 y.o.) Date: 01/14/25 Team: MICU Attending: Pranay Subjective: Hospital Summary: Admitted to ICU for respiratory failure requiring NIV. History of bronchiectasis, severe COPD, chronic hypoxic respiratory failure. Was residing at [facility]. Interval Events: Remained on NIV overnight. Requesting [...] kg/m . I/O: 01/13 07 - 01/14 06 In: 480 [P.O.:480] Out: 950 [Urine:950] Ventilator: [...] Normal [] Scar/Lesion/Mass Inspection of teeth/lips/gums Dentition: [][place] Teeth []Dentures Lips/Gums: []Intact []Lesion Present Mucosa: [x][place] [x]Moist []Dry [place]ck: External Appearance Overall Appearance: [...] 24 hours- BMP: Recent Labs 01/12/25 0945 01/13/2541601/14/25343 NA 141 139 144 K 4.4 4.7 4.0 CL 101 101 101 CO2 33* 34* 36* BUN 16 17 20 CREATININE 0.53* 0.49* 0.55* CALCIUM 8.9 8.6* 8.7* LFTs: Recent Labs 01/12/25 0945 01/13/25416 AST 33 27 ALT 39* 33* PROT 7.1 6.4 ALBUMIN 3.3 2.9* BILITOT 0.4 0.3 ALKPHOS 154* 124 Glucose: Recent Labs 01/12/25 0945 01/13/2541601/14/25 0344 GLUCOSE 138* 98 93 [place]cal: Recent [...] 0417 01/14/25 0658 PHART -- -- 7.391 HJV3ONE -- -- 61.8* PO2ART -- -- 73.2* PNL8ION -- -- 36.7* [id number] Non-Invasive Ventilator BiPAP BiPAP Lactic Acid: Recent [...] Intake: (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) Weight Loss: (regaining some weight back; 89# (07/2024) cbw 106#) Body Fat Loss: (Moderate body fat loss) Orbital, Triceps, Buccal region Muscle Mass Loss: (Moderate muscle mass loss) Temples (temporalis), Clavicles (pectoralis & deltoids), Hand (interosseous), Scapula (trapezius) Fluid Accumulation: No significant fluid accumulation Spray Booth Operator Strength: Not Performed Nutrition Assessment: Pt is a 69 y/o female admitted to [facility] with COPD exacerbation, transferred to ICU with [...] (kg): 48 kg Total Energy Requirements (kcals/day): 4246-9769 kcals (30-35 kcals/kg) Weight Used for Protein [...] 08/03/24- 89#) % Weight Change (Calculated): -1.9 [place] Body Weight (lbs) (Calculated): 120 lbs [place] Body Weight (Kg) (Calculated): 55 kg % [place] Body Weight (Calculated): 88.3 % BMI (kg/m2) [...] Oral Nutrition Supplement Gary Lugo RD Contact: *[phone] or via Secure Chat Images from the original note were not included. [facility], Pulmonary Critical Care and Sleep Medicine [address] [place] [address] Critical Care Note: Patient - Gonzalo Deluca, Age - 69 y.o. - 1955 Room Number - [id number] A [facility] # - [id number] Date of Admission - 01/12/2025 9:18 AM [...] [Urine:400 (0.2 mL/kg/hr)] Weight: 47.6 kg @IODETAILS@ @[id number]@ Lines, ET tube, Devices Lines - Medications [...] neoplasm of exocervix (HCC) Recurrent major depression Pulmonary nodule S/P hysterectomy Sciatica Shortness of breath Supplemental oxygen dependent PNA (pneumonia) H/O: CVA (cerebrovascular accident) Former smoker Nondisplaced fracture of neck of left femur (HCC) Lumbar compression fracture, closed, initial encounter ([facility]) Severe malnutrition (CMS/HCC) (HCC) Falls [...] oxyCODONE, QUEtiapine [4] documented in this encounter [facility] 01-22-2025 Hospital Discharg e navdeep Cross APRN - NAILING MACHINE OPERATOR - 01/22/2025 9:57 AM EST What to [...] fever): Most importantly call your Pulmonary provider: [phone] RED ZONE: Medical Alert Struggling to breath or unrelieved shortness of breath while sitting still. Unrelieved chest pain. Confusion/unclear thinking. Feeling faint. This Means You Should Call 911 or seek medical care at the closest ER Maria Alejandra Medina RN - 01/16/2025 10:22 AM EDT Images from the original note were not included. Continuity of Care Form Patient Name: Gonzalo Deluca : 1955 Admit date: 01/12/2025 Discharge date: 01/22/25 Code Status Order: DNR-CCA Advance Directives: N Admitting Physician: Boy Lynn MD PCP: HERMINIA CASE MD Discharging Nurse: Maria Alejandra WHITEHEAD Discharging Hospital Unit/Room#: [id number] A Discharging Unit Emergency Contact: Extended Emergency Contact Information Primary Emergency Contact: Karishma Deluca [address]: [address] [place] [address] [place] [address] [facility] Mobile Relation: Daughter Secondary Emergency Contact: Jace Deluca Mobile Relation: Son Past Surgical History: Past Surgical History: Procedure Laterality Date CYSTOSCOPY 01/12/2017 OFFICE PROCEDURE CYSTOSCOPY 02/11/2017 C&P bladder biopsy EYE SURGERY detached retina 1994 HYSTERECTOMY 11/06/2019 ABDOMINAL RADICAL HYSTERECTOMY WITH BSO AND PELVIC LYMPH; 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 Total assistance Med Delivery yes Wound Care [...] Date: 01/12/25 Discharging to Facility/ Agency Name: [facility] Address: [address] [place] [address] Cribbing Setter/Contract Technical Writer signature: ICIAN SECTION Name: Gonzalo Deluca Prognosis: excellent Condition at Discharge: stable Rehab Potential (if transferring to Rehab): excellent Recommended Labs or Other Treatments After Discharge: none The individual is being admitted to a nursing facility directly from an [facility] or a unit of a [facility] that is not operated by or licensed by [facility] under section 5119.14 or 5160-3-15.1 5 [...] H&P PHYSICIAN SIGNATURE: documented in this encounter [facility] 01-21-2025 Progress note Formatting of t his note might be different from the original. Care Management Progress Note Short Medical why still here: Patient remains on 4S today awaiting insurance authorization for [facility], where she is LTC. Continue on 4L O2 [place], respiratory treatments. ATBX regimen through today for Pseudomonas. Geriatrics/Palliative following. Planned Discharge Disposition: Jail Facility, [facility]. Waiting on response from facility to see if we can discharge patient back to LTC and they obtain insurance authorization for skilled rehab. If not, then we will start insurance authorization today internally. Follow up recommended for PFTs, scheduled on 02/25 per Pulm note. Barriers/Today we still Wait: Facility pre-cert, Clinical stability, Administering IV medications Length of Stay (Days): 9 GMLOS: 3.5 [facility] 01-20-2025 Progress note Formatting of t his note might be different from the original. Care Management Progress Note Short Medical why still here: Remains on 4S for acute on chronic hypoxic and hypercarbic respiratory failure secondary to acute exacerbation of COPD. Back to baseline 4L supplemental O2. Anticipate DC after auth received for skilled level of care at F. Planned Discharge Disposition: Jail Facility ([facility]) Barriers/Today we still Wait: Clinical stability, Facility pre-cert, Tool Repair Technician recommendations (comment) (pending OT rec) Length of Stay (Days): 8 GMLOS: 3.5 PT/OT notes both rec return to ECF with PT/OT. Tasked IMMUNOLOGY SPECIALIST Deputy Commissioner to start U[employer] Medicare auth for patient to return skilled. Spoke with attending - aware patient requires auth to return for SNF level of care. CM will continue to follow. [facility] 01-19-2025 Progress note Formatting of t his [...] - anticipate back tomorrow. Planned Discharge Disposition: Jail Facility ([facility] - plan to return skilled, need auth) Barriers/Today we still Wait: Clinical stability, Facility pre-cert, Tool Repair Technician recommendations (comment) (pending OT rec) Length of Stay (Days): 7 GMLOS: 3.5 CM tasked to follow patient through the weekend to assist with discharge needs. Chart reviewed. Expected Discharge, Rapid Rounding, and Discharge Milestones / Delays updated as appropriate. CM portion of SHAMA complete. Tasked to follow for possible weekend DC back to [facility]. [facility] requesting patient return with skilled services if appropriate and would need auth. PT/OT pending. Will follow. recs return to F with PT. OT remains pending. Family wants patient to return skilled. Will need to start auth Mon. Placed Therapy See Today request for updated notes tomorrow. CM will follow. Facility [facility] via [facility]. [facility] 01-17-2025 Progress note Formatting of t his note might be different from the original. Care Managment Initial Assessment Date: 01/17/2025 Patient Name: Gonzalo Deluca : 1955 Patient Information Source of Information: Patient Cognition/Language: Cameroonian Permission given to speak with patient agency sales representative/caregiver as indicated: No Confirmation of Payer with patient/family: No Payer Name: [employer] Medicare Dual Complete : N/A Confirmation of Primary Care Physician: dr Herminia Case MD Primary Caregiver: Facility staff If assistance needed, confirmed caregiver ready, willing and able to care for patient at discharge: facility staff Confirmed with: [facility] Living Arrangements Current Residence: Number of Floors Number of Entry Steps: Bed/Bath Levels: Facility: Facility Name: [facility] Plan to Return: Yes Lives with: residents Support Systems: Children, Dtr and son Activities of Daily Living Ambulation: With walker/WC Bathing/Dressing: Indep Elimination/Continence/Toileting : Indep Feeding: Indep Who Assists with Activities of Daily Living: Facility medical staff if needed Instrumental Activities of Daily Living Prescription Coverage: Pharmacy Used: [id number] - [place], [place] - [address] [facility] Medication Management: Facility medical staff Transportation/Shopping: [...] for: N/A Additional Information: Patient is from [facility]. Patient states she has lived there since [...] updates and discharge planning. Patience Almonte RN [facility] 01-17-2025 Progress note Formatting of [...] assistance with scheduling hospital follow-up with pulmonary. [facility] 01-16-2025 Progress note Formatting of t his [...] indicated at this time. Planned Discharge Disposition: Jail Facility, returning to [facility]. Updated on clinicals via [facility] today. Declined BIPAP. Vapes, smoking cessation. Hx of anxiety/depression. CM will continue to follow for updates and discharge planning. Barriers/Today we still Wait: Clinical stability, Tool Repair Technician recommendations (Pulmonology) Length of Stay (Days): 4 GMLOS: 3.5 [facility] 01-16-2025 Consult note Formatting of th is note is different from the original. Images from the original note were not included. [facility], Pulmonary Medicine [address] [place] [address] [place] [address] [id number] 1955 Date of Admission - 01/12/2025 9:18 AM Date of evaluation - 01/16/2025 [facility] A Hospital Day - 4 [...] breathing after ambulating back to bed from [facility]. She denied any chest pain, fever, chills, nausea or vomiting. Productive cough with yellowish phlegm. Denied any hemoptysis. She is currently residing at [facility] for skilled therapy with hopes to transition to assisted living. Wears 3-4 liters NC at baseline. Currently requiring 6 with SpO2 around 90-92%. She denied use of NIPPV at home. Established patient with [facility] pulmonary (Dr. Tran and Elyssa Tesfaye SYSTEMS ANALYSIS MANAGER-NAILING MACHINE OPERATOR). On Breo ellipta & Spiriva. Patient states [...] ABGs: Recent Labs 01/14/2565701/15/25532 PHART 7.391 -- [id number] 61.8* -- PO2ART 73.2* -- VOG6GQJ 36.7* -- [id number] BiPAP Nasal Cannula (LPM) Microbiology: COVID/Flu/RSV: Negative [...] (HCC) Lumbar compression fracture, closed, initial encounter ([facility]) Severe malnutrition (CMS/HCC) (HCC) Falls frequently Unintentional weight loss Debility PFO (patent foramen ovale) (HHS/HCC) Adult failure to thrive Anxiety and depression Cognitive deficits At risk for delirium COPD exacerbation ([facility]) [2] Past Medical History: Diagnosis [...] nodules Near syncope 09/19/2023 Osteoporosis Palpitations Pneumonia [id number] Recurrent major depression Sciatica Thoracic compression fracture [...] PPD at 31, quit smoking cigarettes in 2020 and started vaping, uses a rechargeable vape, [...] 650 mg, 650 mg, Oral, q6h PRN, Boy Lynn MD, 650 mg at 01/14/25 1636 albuterol (2.5 MG/3ML) 0.083% nebulizer solution 2.5 mg, 2.5 mg, Nebulization, q2h PRN, Boy Lynn MD aspirin EC tablet 81 mg, 81 mg, Oral, Daily, Boy Lynn MD, 81 mg at 01/16/25 0956 buPROPion XL (Wellbutrin XL) 24 hr tablet 150 mg, 150 mg, Oral, Daily, Boy Lynn MD, 150 mg at 01/16/25 0957 busPIRone (Buspar) tablet 15 mg, 15 mg, Oral, BID, Boy Lynn MD, 15 mg at 01/16/25 0956 cefepime (Maxipime) 2,000 mg in sodium chloride 0.9 % 50 mL IVPB Mini-Bag Plus, 2,000 mg, IntraVENous, q8h, Boy Lynn MD, Stopped at 01/16/25 0958 enoxaparin (Lovenox) syringe 40 mg, 40 mg, SubCUTAneous, Daily, Boy Lynn MD, 40 mg at 01/16/25 0956 fluticasone (Flonase) nasal spray 2 spray, 2 spray, Each Nostril, Daily, Srini Pires MD, 2 spray at 01/16/25 0958 folic acid (Folvite) tablet 1 mg, 1 mg, Oral, Daily, Boy Lynn MD, 1 mg at 01/15/25 0826 guaiFENesin (Mucinex) 12 hr tablet 600 mg, 600 mg, Oral, BID, Srini Pires MD, 600 mg at 01/16/25 0956 influenza vaccine A&B surf ant adjuvanted (Fluad) HIGH-DOSE injection 0.5 mL, 0.5 mL, IntraMUSCular, Prior to discharge, Boy Lynn MD ipratropium-albuterol (Duo-Neb) 0.5-2.5 mg/3 mL nebulizer solution 3 mL, 3 mL, Nebulization, TID, Boy Lynn MD, 3 mL at 01/16/25 0809 melatonin tablet 3 mg, 3 mg, Oral, Nightly, Boy Lynn MD, 3 mg at 01/15/25 2100 methocarbamol (Robaxin) tablet 500 mg, 500 mg, Oral, q8h PRN, Srini Pires MD, 500 mg at 01/14/25 1718 mirtazapine (Remeron) tablet 15 mg, 15 mg, Oral, Nightly, Boy Lynn MD, 15 mg at 01/15/25 2100 mometasone-formoterol (Dulera 100) 100-5 MCG/ACT inhaler 2 puff, 2 puff, Inhalation, BID, Srini Pires MD, 2 puff at 01/15/25 1036 montelukast (Singulair) tablet 10 mg, 10 mg, Oral, Nightly, Boy Lynn MD, 10 mg at 01/15/25 205 mupirocin (Bactroban) 2 % ointment 1 Application, 1 Application, Nasal, BID, Boy Lynn MD, 1 Application at 01/15/25 0826 naloxone (Narcan) injection 0.4 mg, 0.4 mg, IntraVENous, q5 min PRN, Boy Lynn MD ondansetron ODT (Zofran-ODT) disintegrating tablet 4 mg, 4 mg, Oral, q8h PRN, 4 mg at 01/15/25 0909 OR ondansetron (Zofran) injection 4 mg, 4 mg, IntraVENous, q6h PRN, Boy Lynn MD, 4 mg at 01/12/252038 oxyCODONE (Roxicodone) immediate release tablet 15 mg, 15 mg, Oral, q6h PRN, Ruth العراقي MD, 15 mg at 01/16/25 1003 pantoprazole (ProtoNix) EC tablet 40 mg, 40 mg, Oral, q AM, Boy Lynn MD, 40 mg at 01/16/25 0956 [...] 50 mg, 50 mg, Oral, Nightly PRN, Boy Lynn MD, 50 mg at 01/15/252058 senna-docusate [...] [place] DO at 01/16/2025 2:27 PM EDT [facility] 01-16-2025 Consult note Formatting of th is note is different from the original. Images from the original note were not included. [facility], Pulmonary Medicine [address] [place] [id number] [id number] 1955 Date of Admission - 01/12/2025 9:18 AM Date of evaluation - 01/16/2025 Room - [facility] A Hospital Day - 4 [...] breathing after ambulating back to bed from [facility]. She denied any chest pain, fever, chills, nausea or vomiting. Productive cough with yellowish phlegm. Denied any hemoptysis. She is currently residing at [facility] for skilled therapy with hopes to transition to assisted living. Wears 3-4 liters NC at baseline. Currently requiring 6 with SpO2 around 90-92%. She denied use of NIPPV at home. Established patient with [facility] (Dr. Tran and Elyssa Tesfaye SYSTEMS ANALYSIS MANAGER-[facility]). On Breo ellipta & Spiriva. Patient [...] 95.7 RDW -- 13.5 BMP: Recent Labs 01/14/2534301/15/2553201/16/25 05 NA 144 141 142 K 4.0 4.3 3.7 CL 101 100 100 CO2 36* 35* 33* BUN 20 18 22 CREATININE 0.55* 0.52* 0.52* CALCIUM 8.7* 8.7* 8.4* MG -- 1.8 -- PHOS -- 2.1* -- Glucose: Recent Labs 01/14/2534301/15/2553201/16/25 05 GLUCOSE 93 148* 90 ABGs: Recent Labs 01/14/2565701/15/25532 PHART 7.391 -- [id number] 61.8* -- PO2ART 73.2* -- SUM0DEV 36.7* -- [id number] BiPAP Nasal Cannula (LPM) Microbiology: COVID/Flu/RSV: Negative [...] deficits At risk for delirium COPD exacerbation ([facility]) [2] Past Medical History: Diagnosis Date Abnormal stress test Acute exacerbation of chronic obstructive pulmonary disease (HCC) 04/12/2018 Allergic rhinitis 1955 Arthritis Asthma (HHS/HCC) Bronchitis Cancer (HCC) skin Cervical cancer (HCC) Chest pain COPD (chronic obstructive pulmonary disease) ([facility]) USE OXYGEN 3 L AT NIGHT DDD (degenerative disc disease), cervical Defect, retina, with detachment right DJD (degenerative joint disease), lumbar Emphysema lung ([facility]) Former smoker Hematuria SCHEDULED FOR THE PROCEDURE /SURGERY ON 02/11/2017 Hypokalemia Lung nodules Near syncope 09/19/2023 Osteoporosis Palpitations Pneumonia [id number] Recurrent major depression Sciatica Thoracic compression fracture ([facility]) Vitamin D deficiency [3] Past [...] 650 mg, 650 mg, Oral, q6h PRN, Boy Lynn MD, 650 mg at 01/14/25 1636 albuterol (2.5 MG/3ML) 0.083% nebulizer solution 2.5 mg, 2.5 mg, Nebulization, q2h PRN, Boy Lynn MD aspirin EC tablet 81 mg, 81 mg, Oral, Daily, Boy Lynn MD, 81 mg at 01/16/25 0956 buPROPion XL (Wellbutrin XL) 24 hr tablet 150 mg, 150 mg, Oral, Daily, Boy Lynn MD, 150 mg at 01/16/25 0957 busPIRone (Buspar) tablet 15 mg, 15 mg, Oral, BID, Boy Lynn MD, 15 mg at 01/16/25 0956 cefepime (Maxipime) 2,000 mg in sodium chloride 0.9 % 50 mL IVPB Mini-Bag Plus, 2,000 mg, IntraVENous, q8h, Boy Lynn MD, Stopped at 01/16/25 0958 enoxaparin (Lovenox) syringe 40 mg, 40 mg, SubCUTAneous, Daily, Boy Lynn MD, 40 mg at 01/16/25 0956 fluticasone (Flonase) nasal spray 2 spray, 2 spray, Each Nostril, Daily, Srini Pires MD, 2 spray at 01/16/25 0958 folic acid (Folvite) tablet 1 mg, 1 mg, Oral, Daily, Boy Lynn MD, 1 mg at 01/15/25 0826 guaiFENesin (Mucinex) 12 hr tablet 600 mg, 600 mg, Oral, BID, Srini Pires MD, 600 mg at 01/16/25 0956 influenza vaccine A&B surf ant adjuvanted (Fluad) HIGH-DOSE injection 0.5 mL, 0.5 mL, IntraMUSCular, Prior to discharge, Boy Lynn MD ipratropium-albuterol (Duo-Neb) 0.5-2.5 mg/3 mL nebulizer solution 3 mL, 3 mL, Nebulization, TID, Boy Lynn MD, 3 mL at 01/16/25 0809 melatonin tablet 3 mg, 3 mg, Oral, Nightly, Boy Lynn MD, 3 mg at 01/15/252099 methocarbamol (Robaxin) tablet 500 mg, 500 mg, Oral, q8h PRN, Srini Pires MD, 500 mg at 01/14/25 171 mirtazapine (Remeron) tablet 15 mg, 15 mg, Oral, Nightly, Boy Lynn MD, 15 mg at 01/15/252099 mometasone-formoterol (Dulera 100) 100-5 MCG/ACT inhaler 2 puff, 2 puff, Inhalation, BID, Srini Pires MD, 2 puff at 01/15/25 103 montelukast (Singulair) tablet 10 mg, 10 mg, Oral, Nightly, Boy Lynn MD, 10 mg at 01/15/252058 mupirocin (Bactroban) 2 % ointment 1 Application, 1 Application, Nasal, BID, Boy Lynn MD, 1 Application at 01/15/25 08 naloxone (Narcan) injection 0.4 mg, 0.4 mg, IntraVENous, q5 min PRN, Boy Lynn MD ondansetron ODT (Zofran-ODT) disintegrating tablet 4 mg, 4 mg, Oral, q8h PRN, 4 mg at 01/15/25 0909 OR ondansetron (Zofran) injection 4 mg, 4 mg, IntraVENous, q6h PRN, Boy Lynn MD, 4 mg at 01/12/252038 oxyCODONE (Roxicodone) immediate release tablet 15 mg, 15 mg, Oral, q6h PRN, Ruth العراقي MD, 15 mg at 01/16/25 100 pantoprazole (ProtoNix) EC tablet 40 mg, 40 mg, Oral, q AM, Boy Lynn MD, 40 mg at 01/16/25 0956 [...] 50 mg, 50 mg, Oral, Nightly PRN, Boy Lynn MD, 50 mg at 01/15/252058 senna-docusate [...] EDT Associated Order(s): IP CONSULT TO GERIATRICS [facility] Geriatric Medicine Inpatient Consult Service Admission [...] decline --using walker/wheelchair at baseline. Living at [facility] since July. Per daughter, she is not eligible for medicaid and may need alternative living arrangement. Social Work consulted. 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 Admitted to the ICU for acute encephalopathy, acute on chronic hypoxic/hypercapnic respiratory failure. Required NIV. Treated for COPD exacerbation, Bronchiectasis exacerbation. Transitioning out of ICU 01/15. Off NIV. Palliative following. Conversation with patient: Reports she lives at [facility] since July 2024. She has chronic sleeping [...] has been working with a social work faculty member in [facility]. May have to go home, but does not feel this is safest option. Some memory issues, but overall doing ok. May be a little more depressed at times. Nurse from [facility] verifies patient does not take Paxil or [...] this. Advance Care Planning Healthcare Power of Correction Officer Head: Yes, Karishma Deluca Code Status: DNR-CCA Allergies[1] [...] Follow-up: will follow with you Saad Telles, SYSTEMS ANALYSIS MANAGER - NAILING MACHINE OPERATOR 01/15/25 3:51 PM [1] Allergies Allergen Reactions Pollen Extract Unknown [2] Current Facility-Administered Medications: acetaminophen (Tylenol) tablet 650 mg, 650 mg, Oral, q6h PRN, Boy Lynn MD, 650 mg at 01/14/25 1636 albuterol (2.5 MG/3ML) 0.083% nebulizer solution 2.5 mg, 2.5 mg, Nebulization, q2h PRN, Boy Lynn MD aspirin EC tablet 81 mg, 81 mg, Oral, Daily, Boy Lynn MD, 81 mg at 01/15/25 0826 buPROPion XL (Wellbutrin XL) 24 hr tablet 150 mg, 150 mg, Oral, Daily, Boy Lynn MD, 150 mg at 01/15/25 0825 busPIRone (Buspar) tablet 15 mg, 15 mg, Oral, BID, Boy Lynn MD, 15 mg at 01/15/25 0825 cefepime (Maxipime) 2,000 mg in sodium chloride 0.9 % 50 mL IVPB Mini-Bag Plus, 2,000 mg, IntraVENous, q8h, Boy Lynn MD, Last Rate: 12.5 mL/hr at 01/15/25 1302, 2,000 mg at 01/15/25 1302 enoxaparin (Lovenox) syringe 40 mg, 40 mg, SubCUTAneous, Daily, Boy Lynn MD, 40 mg at 01/15/25 0826 fluticasone (Flonase) nasal spray 2 spray, 2 spray, Each Nostril, Daily, Srini Pires MD, 2 spray at 01/15/25 1301 folic acid (Folvite) tablet 1 mg, 1 mg, Oral, Daily, Boy Lynn MD, 1 mg at 01/15/25 0826 guaiFENesin (Mucinex) 12 hr tablet 600 mg, 600 mg, Oral, BID, Srini Pires MD, 600 mg at 01/15/25825 influenza vaccine A&B surf ant adjuvanted (Fluad) HIGH-DOSE injection 0.5 mL, 0.5 mL, IntraMUSCular, Prior to discharge, Boy Lynn MD ipratropium-albuterol (Duo-Neb) 0.5-2.5 mg/3 mL nebulizer solution 3 mL, 3 mL, Nebulization, TID, Boy Lynn MD melatonin tablet 3 mg, 3 mg, Oral, Nightly, Boy Lynn MD, 3 mg at 01/14/252050 methocarbamol (Robaxin) tablet 500 mg, 500 mg, Oral, q8h PRN, Srini Pires MD, 500 mg at 01/14/251717 mirtazapine (Remeron) tablet 15 mg, 15 mg, Oral, Nightly, Boy Lynn MD, 15 mg at 01/14/252050 mometasone-formoterol (Dulera 100) 100-5 MCG/ACT inhaler 2 puff, 2 puff, Inhalation, BID, Srini Pires MD, 2 puff at 01/15/25 103 montelukast (Singulair) tablet 10 mg, 10 mg, Oral, Nightly, Boy Lynn MD, 10 mg at 01/14/252050 mupirocin (Bactroban) 2 % ointment 1 Application, 1 Application, Nasal, BID, Boy Lynn MD, 1 Application at 01/15/25825 naloxone (Narcan) injection 0.4 mg, 0.4 mg, IntraVENous, q5 min PRN, Boy Lynn MD ondansetron ODT (Zofran-ODT) disintegrating tablet 4 mg, 4 mg, Oral, q8h PRN, 4 mg at 01/15/25908 OR ondansetron (Zofran) injection 4 mg, 4 mg, IntraVENous, q6h PRN, Boy Lynn MD, 4 mg at 01/12/252038 oxyCODONE (Roxicodone) immediate release tablet 15 mg, 15 mg, Oral, q6h PRN, Ruth Parajuli, MD, 15 mg at 01/15/25 1438 pantoprazole (ProtoNix) EC tablet 40 mg, 40 mg, Oral, q AM, Boy Lynn MD, 40 mg at 01/15/25 0825 PARoxetine (Paxil) tablet 30 mg, 30 mg, Oral, q AM, Boy Lynn MD, 30 mg at 01/15/25 0825 [...] 50 mg, 50 mg, Oral, Nightly PRN, Boy Lynn MD, 50 mg at 01/14/25 2223 [...] (HCC) 04/12/2018 Allergic rhinitis 1955 Arthritis Asthma ([facility]/HCC) Bronchitis Cancer (HCC) skin Cervical cancer (HCC) Chest pain COPD (chronic obstructive pulmonary disease) ([facility]) USE OXYGEN 3 L AT NIGHT DDD (degenerative disc disease), cervical Defect, retina, with detachment right DJD (degenerative joint disease), lumbar Emphysema lung (HCC) Former smoker Hematuria SCHEDULED FOR THE PROCEDURE /SURGERY ON 02/11/2017 Hypokalemia Lung nodules Near syncope 09/19/2023 Osteoporosis Palpitations Pneumonia [id number] Recurrent major depression Sciatica Thoracic compression fracture ([facility]) Vitamin D deficiency [4] Past [...] capacity for medical decision-making -HCPOA: daughter Karishma [phone] - Another emergency contact listed is son Jace [phone] -goals of care: To continue current medical management, to get better; pt working towards returning home but states she knows [facility]/ 11/10 care may be better moving forward -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: pt admitted from [facility] -see subjective for details of conversation [...] -PRN Tylenol Debility -increased weakness -admitted from [facility] -PT/OT as able -2nd admission since [...] with primary attending or other consultants, Electronic cut order hand of medications, tests or procedures, Counseling and [...] have a palliative team follow her at [facility]. Discuss that [facility] does not follow [...] single Children: 2 adult child(kyler) Living status: group home Work history: Retired due to disability [place] status: No Jew: None ROS: See palliative care ROS/ESAS below; All other systems were reviewed and are negative. [place] Symptom Assessment Score [place] Score Pain Score (if non-verbal, add .FLACC [...] time Transition Note Initiated: yes Nilesh Frey, SYSTEMS ANALYSIS MANAGER - NAILING MACHINE OPERATOR [1] Past Medical History: Diagnosis Date Abnormal stress test Acute exacerbation of chronic obstructive pulmonary disease (HCC) 04/12/2018 Allergic rhinitis 1955 Arthritis Asthma ([facility]/HCC) Bronchitis Cancer (HCC) skin Cervical cancer (HCC) Chest pain COPD (chronic obstructive pulmonary disease) ([facility]) USE OXYGEN 3 L AT NIGHT DDD (degenerative disc disease), cervical Defect, retina, with detachment right DJD (degenerative joint disease), lumbar Emphysema lung (HCC) Former smoker Hematuria SCHEDULED FOR THE PROCEDURE /SURGERY ON 02/11/2017 Hypokalemia Lung nodules Near syncope 09/19/2023 Osteoporosis Palpitations Pneumonia [id number] Recurrent major depression Sciatica Thoracic compression fracture ([facility]) Vitamin D deficiency [2] Past Surgical History: Procedure Laterality Date CYSTOSCOPY 01/12/2017 OFFICE PROCEDURE CYSTOSCOPY 02/11/2017 C&P bladder biopsy EYE SURGERY detached retina 1994 HYSTERECTOMY 11/06/2019 ABDOMINAL RADICAL HYSTERECTOMY WITH BSO AND PELVIC LYMPH; [facility] OTHER SURGICAL HISTORY Left 12/19/2019 Med [...] 2:44 PM EDT documented in this encounter [facility] 01-16-2025 Nurse Note Wound Care consulted for Pressure Injury Prevention. Pt's Jeri score= 18 on 01/15 Pt's pressure points assessed. Pt turned independently in the bed for posterior assessment. Pt's Heels, Buttocks/coccyx, Back, Elbows, Occiput and ears all intact. [place] and blanchable tissues noted to sacrum. Pt [...] any questions or concerns. Rosalina Cross RN [facility] 01-15-2025 Consult note Associated Order (s): IP CONSULT TO GERIATRICS [facility] Geriatric Medicine Inpatient Consult Service Admission [...] decline --using walker/wheelchair at baseline. Living at [facility] since July. Per daughter, she is not eligible for medicaid and may need alternative living arrangement. Social Work consulted. 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 Admitted to the ICU for acute encephalopathy, acute on chronic hypoxic/hypercapnic respiratory failure. Required NIV. Treated for COPD exacerbation, Bronchiectasis exacerbation. Transitioning out of ICU 01/15. Off NIV. Palliative following. Conversation with patient: Reports she lives at [facility] since July 2024. She has chronic sleeping [...] has been working with a social work faculty member in [facility]. May have to go home, but does not feel this is safest option. Some memory issues, but overall doing ok. May be a little more depressed at times. Nurse from [facility] verifies patient does not take Paxil or [...] this. Advance Care Planning Healthcare Power of Correction Officer Head: Yes, Karishma Yosi Code Status: DNR-CCA Allergies[1] Current Medications[2] Medical [...] Follow-up: will follow with you Saad Telles, SYSTEMS ANALYSIS MANAGER - NAILING MACHINE OPERATOR 01/15/25 3:51 PM [1] Allergies Allergen Reactions Pollen Extract Unknown [2] Current Facility-Administered Medications: acetaminophen (Tylenol) tablet 650 mg, 650 mg, Oral, q6h PRN, Boy Lynn MD, 650 mg at 01/14/25 1636 albuterol (2.5 MG/3ML) 0.083% nebulizer solution 2.5 mg, 2.5 mg, Nebulization, q2h PRN, Boy Lynn MD aspirin EC tablet 81 mg, 81 mg, Oral, Daily, Boy Lynn MD, 81 mg at 01/15/25 0826 buPROPion XL (Wellbutrin XL) 24 hr tablet 150 mg, 150 mg, Oral, Daily, Boy Lynn MD, 150 mg at 01/15/25 0825 busPIRone (Buspar) tablet 15 mg, 15 mg, Oral, BID, Boy Lynn MD, 15 mg at 01/15/25 0825 cefepime (Maxipime) 2,000 mg in sodium chloride 0.9 % 50 mL IVPB Mini-Bag Plus, 2,000 mg, IntraVENous, q8h, Boy Lynn MD, Last Rate: 12.5 mL/hr at 01/15/25 1302, 2,000 mg at 01/15/25 1302 enoxaparin (Lovenox) syringe 40 mg, 40 mg, SubCUTAneous, Daily, Boy Lynn MD, 40 mg at 01/15/25 0826 fluticasone (Flonase) nasal spray 2 spray, 2 spray, Each Nostril, Daily, Srini Pires MD, 2 spray at 01/15/25 1301 folic acid (Folvite) tablet 1 mg, 1 mg, Oral, Daily, Boy Lynn MD, 1 mg at 01/15/25 08 guaiFENesin (Mucinex) 12 hr tablet 600 mg, 600 mg, Oral, BID, Srini Pires MD, 600 mg at 01/15/25825 influenza vaccine A&B surf ant adjuvanted (Fluad) HIGH-DOSE injection 0.5 mL, 0.5 mL, IntraMUSCular, Prior to discharge, Boy Lynn MD ipratropium-albuterol (Duo-Neb) 0.5-2.5 mg/3 mL nebulizer solution 3 mL, 3 mL, Nebulization, TID, Boy Lynn MD melatonin tablet 3 mg, 3 mg, Oral, Nightly, Boy Lynn MD, 3 mg at 01/14/252050 methocarbamol (Robaxin) tablet 500 mg, 500 mg, Oral, q8h PRN, Srini Pires MD, 500 mg at 01/14/25 171 mirtazapine (Remeron) tablet 15 mg, 15 mg, Oral, Nightly, Boy Lynn MD, 15 mg at 01/14/252050 mometasone-formoterol (Dulera 100) 100-5 MCG/ACT inhaler 2 puff, 2 puff, Inhalation, BID, Srini Pires MD, 2 puff at 01/15/25 103 montelukast (Singulair) tablet 10 mg, 10 mg, Oral, Nightly, Boy Lynn MD, 10 mg at 01/14/252050 mupirocin (Bactroban) 2 % ointment 1 Application, 1 Application, Nasal, BID, Boy Lynn MD, 1 Application at 01/15/25825 naloxone (Narcan) injection 0.4 mg, 0.4 mg, IntraVENous, q5 min PRN, Boy Lynn MD ondansetron ODT (Zofran-ODT) disintegrating tablet 4 mg, 4 mg, Oral, q8h PRN, 4 mg at 01/15/25 0909 OR ondansetron (Zofran) injection 4 mg, 4 mg, IntraVENous, q6h PRN, Boy Lynn MD, 4 mg at 01/12/252038 oxyCODONE (Roxicodone) immediate release tablet 15 mg, 15 mg, Oral, q6h PRN, Ruth العراقي MD, 15 mg at 01/15/25 143 pantoprazole (ProtoNix) EC tablet 40 mg, 40 mg, Oral, q AM, Boy Lynn MD, 40 mg at 01/15/25 0825 PARoxetine (Paxil) tablet 30 mg, 30 mg, Oral, q AM, Boy Lynn MD, 30 mg at 01/15/25 0825 [...] 50 mg, 50 mg, Oral, Nightly PRN, Boy Lynn MD, 50 mg at 01/14/253 senna-docusate sodium (Senokot-S) 8.6-50 MG tablet 1 tablet, 1 tablet, Oral, BID, Ruth العراقي MD sodium chloride 3 % hypertonic nebulizer solution 4 mL, 4 mL, Nebulization, BID, Srini Pires MD, 4 mL at 01/14/252015 [3] Past Medical History: Diagnosis Date Abnormal stress test Acute exacerbation of chronic obstructive pulmonary disease (HCC) 04/12/2018 Allergic rhinitis [birth year] Arthritis Asthma ([facility]/HCC) Bronchitis Cancer (HCC) skin Cervical cancer (HCC) Chest pain COPD (chronic obstructive pulmonary disease) (HCC) USE OXYGEN 3 L AT NIGHT DDD (degenerative disc disease), cervical Defect, retina, with detachment right DJD (degenerative joint disease), lumbar Emphysema lung (HCC) Former smoker Hematuria SCHEDULED FOR THE PROCEDURE /SURGERY ON 02/11/2017 Hypokalemia Lung nodules Near syncope 09/19/2023 Osteoporosis Palpitations Pneumonia [id number] Recurrent major depression Sciatica Thoracic compression fracture (HCC) Vitamin D deficiency [4] Past Surgical History: Procedure Laterality Date CYSTOSCOPY 01/12/2017 OFFICE PROCEDURE CYSTOSCOPY 02/11/2017 C&P bladder biopsy EYE SURGERY detached retina 1994 HYSTERECTOMY 11/06/2019 ABDOMINAL RADICAL HYSTERECTOMY WITH BSO AND PELVIC LYMPH; DR[facility] OTHER SURGICAL HISTORY Left 12/19/2019 Med Port POWER Regular Size OTHER SURGICAL HISTORY Left 11/07/2022 Percutaneous skeltal fixation femoral fracture TUBAL LIGATION 1992 [5] Family History Problem Relation Name Age of Onset Colon cancer Neg Hx Ovarian cancer Neg Hx Cancer Mother breast- to liver Cancer Sister breast Cancer Father lung to brain No Known Problems Brother Uterine cancer Neg Hx T [facility] 01-15-2025 mergers and acquisitions manager Note Accepted ICU transfer from Dr. Pires [facility] 01-14-2025 Note Referral placed to lisa carpenter back to [facility] via [facility] per [facility] request. Await review and response regarding ability to accept. TCC notified. [facility] 01-14-2025 Progress note Formatting of t his note might be different from the original. Referral placed to return back to [facility] via [facility] per T[facility] request. Await review and response regarding ability to accept. TCC notified. [facility] 01-14-2025 Note Request for IMMUNOLOGY SPECIALIST to gerald blount referral to [facility]. CM will follow for updates and discharge planning. [facility] 01-14-2025 Progress note Formatting of t his note might be different from the original. Request for IMMUNOLOGY SPECIALIST to place referral to [facility]. CM will follow for updates and discharge planning. [facility] 01-13-2025 Consult note Associated Order (s): IP CONSULT TO PALLIATIVE CARE Images from the original note were not included. Palliative Care Initial Consult Chief Complaint: Gonzalo Deluca is a 69 y.o. female with chief complaint of shortness of breath. Palliative Care is actively following. Assessment/Plan Goals of Care -DNR-CCA/DNI, OK ICU transfer -Gonzalo Deluca retains capacity for medical decision-making -HCPOA: daughter Karishma [phone] - Another emergency contact listed is son Jace [phone] -goals of care: To continue current medical management, to get better; pt working towards returning home but states she knows facility/ 11/10 care may be better moving forward -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: pt admitted from [facility] -see subjective for details of conversation [...] -PRN Tylenol Debility -increased weakness -admitted from [facility] -PT/OT as able -2nd admission since [...] with primary attending or other consultants, Electronic cut order hand of medications, tests or procedures, Counseling and [...] have a palliative team follow her at [facility]. Discuss that [facility] does not follow [...] single Children: 2 adult child(kyler) Living status: group home Work history: Retired due to disability [place] status: No Jew: None ROS: See palliative care ROS/ESAS below; All other systems were reviewed and are negative. [place] Symptom Assessment Score [place] Score Pain Score (if non-verbal, add .FLACC [...] time Transition Note Initiated: yes Nilesh Frey, DB - NAILING MACHINE OPERATOR [1] Past Medical History: Diagnosis Date Abnormal [...] nodules Near syncope 09/19/2023 Osteoporosis Palpitations Pneumonia [id number] Recurrent major depression Sciatica Thoracic compression fracture [...] Fontenot MD at 01/13/2025 2:44 PM EDT [employer] Work Phone: 01-13-2025 Progress note Formatting of t his note is different from the original. Images from the original note were not included. [facility] Palliative Care Transitions of [...] PO intake Debility -increased weakness -admitted from [facility] -PT/OT as able -2nd admission since July 2024 CODE STATUS DISCUSSIONS: -Gonzalo Deluca retains capacity for medical decision-making -HCPOA: demetrice Schwarz [phone] - Another emergency contact listed is son Jace [phone] - pt admitted from [facility] - met with patient this am, introduced self and role - patient was calm, comfortable, stated she is feeling better - Code status already DNRCCA/DNI - patient stated her goal is to get better and go back to [facility] - provided empathetic listening and emotional support to patient - discussed with bedside RN SYMPTOM MANAGEMENT MEDICATIONS: - not prescribed by our team DISPOSITION: TBD FACILITY/HOME CARE AGENCY NAME: TBD Follow up with Nursing facility Reason for Outpatient/Home/ECF Palliative Care follow-up: N/A Opiate Prescribing - not prescribed by our team SIGNED: Nilseh Frey APRN - NAILING MACHINE OPERATOR 01/13/2025, 8:47 AM [facility] 01-12-2025 Emergency department Note Pt transported to new room on monitor with medic and RN. Pt awake and alert and oriented on transport. All belongings with pt. [facility] 01-12-2025 Emergency department Note Pt transported to new room on monitor with medic and RN. Pt awake and alert and oriented on transport. All belongings with pt. Report to AQUATIC LIFE LABORER at this time. All questions answered. Pt Daughter Karishma Updated at this time as well. All questions answered. RT called for NIV placement. Emergency Department Encounter [facility] ED Patient: Gonzalo Deluca : 1955 [...] for shortness of breath. Patient coming from [facility] facility. 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 Patient has a history of COPD [...] In compliance with this authorization, please visit www.fda.gov/media/515064/downloa d or www.fda.gov/media/862852/downloa d to access the applicable information sheets. [...] - Normal ETHANOL IN SER/PLAS <10 Narrative: STORE DETECTIVE depression is seen >100 mg/dL. 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 She has a [...] Reformed smoker. She currently resides in a fpc facility. ED diagnostics interpreted by me included [...] specified. DISCHARGE MEDICATIONS: Current Discharge Medication List @[facility]([id number]:LAST:1)@ (Please note: Portions of this note were [...] nodules Near syncope 09/19/2023 Osteoporosis Palpitations Pneumonia [id number] Recurrent major depression Sciatica Thoracic compression fracture [...] - Unmet Transportation Needs (06/06/2024) Received from [facility] - Transportation Lack of Transportation (Medical): Yes Lack of Transportation (Non-Medical): No Physical Activity: Insufficiently Active (07/31/2024) Exercise Vital Sign Days of Exercise per Week: 3 days Minutes of Exercise per Session: 20 min Stress: No Stress Concern Present (07/31/2024) [facility] Carpenter of Occupational Health - Occupational Stress Questionnaire Feeling of Stress : Only a little Recent Concern: Stress - Stress Concern Present (06/06/2024) Received from [facility] Carpenter of Occupational Health - Occupational Stress Questionnaire Feeling of Stress : To some extent Social Connections: Socially Isolated (07/31/2024) Social Connection and Isolation Panel [NHANES] Frequency of Communication with Friends and Family: Three times a week Frequency of Social Gatherings with Friends and Family: Three times a week Attends Hinduism Services: Never Active Member of Clubs or [...] 2:29 PM EDT documented in this encounter [facility] 01-12-2025 Emergency department Note Report to AQUATIC LIFE LABORER at this time. All questions answered. Pt Daughter Karishma Updated at this time as well. All questions answered. [facility] 01-12-2025 History and physical note Images from the original note were not included. Internal Medicine: MICU Initial History and Physical Name: Gonzalo Deluca : 1955(69 y.o.) Date: 01/12/25 Attending: Dr. Lynn Subjective: Chief Complaint: Shortness of breath respiratory failure HPI: Patient is a 69-year-old female with known history of advanced emphysema, chronic respiratory failure on supplemental oxygen lives at the [facility] facility brought to the emergency room [...] - Unmet Transportation Needs (06/06/2024) Received from [facility] - Transportation Lack of Transportation (Medical): Yes Lack of Transportation (Non-Medical): No Physical Activity: Insufficiently Active (07/31/2024) Exercise Vital Sign Days of Exercise per Week: 3 days Minutes of Exercise per Session: 20 min Stress: No Stress Concern Present (07/31/2024) Lao Carpenter of Occupational Health - Occupational Stress Questionnaire Feeling of Stress : Only a little Recent Concern: Stress - Stress Concern Present (06/06/2024) Received from [facility] of Occupational Health - Occupational Stress Questionnaire Feeling of Stress : To some extent Social Connections: Socially Isolated (07/31/2024) Social Connection and Isolation Panel [NHANES] Frequency of Communication with Friends and Family: Three times a week Frequency of Social Gatherings with Friends and Family: Three times a week Attends Hinduism Services: Never Active Member of Clubs or [...] Normal [] Scar/Lesion/Mass Inspection of teeth/lips/gums Dentition: [][place] Teeth []Dentures Lips/Gums: []Intact []Lesion Present Mucosa: [][place] []Moist []Dry Neck: External Appearance Overall Appearance: [...] 13.9 -- ABGs: Recent Labs 01/12/25 0946 [id number] Nasal Cannula (LPM) Lactic Acid: Recent Labs [...] nodules Near syncope 09/19/2023 Osteoporosis Palpitations Pneumonia [id number] Recurrent major depression Sciatica Thoracic compression fracture (HCC) Vitamin D deficiency [2] Past Surgical History: Procedure Laterality Date CYSTOSCOPY 01/12/2017 OFFICE PROCEDURE CYSTOSCOPY 02/11/2017 C&P bladder biopsy EYE SURGERY detached retina 1994 HYSTERECTOMY 11/06/2019 ABDOMINAL RADICAL HYSTERECTOMY WITH BSO AND PELVIC LYMPH; [facility] OTHER SURGICAL HISTORY Left 12/19/2019 Med [...] Pollen Extract Unknown [facility] 01-12-2025 Note [facility] 01-12-2025 History and physical note Images from [...] - Unmet Transportation Needs (06/06/2024) Received from [facility] PR[facility] - Transportation Lack of Transportation (Medical): Yes Lack of Transportation (Non-Medical): No Physical Activity: Insufficiently Active (07/31/2024) Exercise Vital Sign Days of Exercise per Week: 3 days Minutes of Exercise per Session: 20 min Stress: No Stress Concern Present (07/31/2024) [facility] Carpenter of Occupational Health - Occupational Stress Questionnaire Feeling of Stress : Only a little Recent Concern: Stress - Stress Concern Present (06/06/2024) Received from [facility] Carpenter of Occupational Health - Occupational Stress Questionnaire Feeling of Stress : To some extent Social Connections: Socially Isolated (07/31/2024) Social Connection and Isolation Panel [NHANES] Frequency of Communication with Friends and Family: Three times a week Frequency of Social Gatherings with Friends and Family: Three times a week Attends Hinduism Services: Never Active Member of Clubs or [...] mouth 2 times daily. 09/22/23 08/20/24 Roland Ortiz, calcium carbonate-cholecalciferol (Oyster Shell) 250-3.125 MG-MCG tablet [...] Normal [] Scar/Lesion/Mass Inspection of teeth/lips/gums Dentition: [][place] Teeth []Dentures Lips/Gums: []Intact []Lesion Present Mucosa: [][place] []Moist []Dry Neck: External Appearance Overall Appearance: [...] 13.9 -- ABGs: Recent Labs 01/12/25 0946 [id number] Nasal Cannula (LPM) Lactic Acid: Recent Labs [...] nodules Near syncope 09/19/2023 Osteoporosis Palpitations Pneumonia [id number] Recurrent major depression Sciatica Thoracic compression fracture (HCC) Vitamin D deficiency [2] Past Surgical History: Procedure Laterality Date CYSTOSCOPY 01/12/2017 OFFICE PROCEDURE CYSTOSCOPY 02/11/2017 C&P bladder biopsy EYE SURGERY detached retina 1994 HYSTERECTOMY 11/06/2019 ABDOMINAL RADICAL HYSTERECTOMY WITH BSO AND PELVIC LYMPH; DR[facility] ZIYAD [facility]ENDEZ [facility] OTHER SURGICAL HISTORY Left 12/19/2019 Med [...] Pollen Extract Unknown documented in this encounter [facility] 01-12-2025 Emergency department Note RT called for NIV placement. [facility] 01-12-2025 Physician Emergency department Note Emergency Department Encounter [facility] ED Patient: Gonzalo Deluca : 1955 [...] for shortness of breath. Patient coming from fpc facility. She has a history of COPD [...] for clarification.) Freddy Linder MD Acute Care [facility] Freddy Linder MD 01/12/25 1003 [facility] 01-12-2025 Physician Emergency department Note [facility] INTENSIVE CARE UNIT ICU 2 eMERGENCY dEPARTMENT [...] patient is seen in conjunction with Dr. iLnder who also interviewed and evaluated the patient at bedside. Gonzalo Deluca is a 69 y.o. 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 Patient has a history of COPD [...] In compliance with this authorization, please visit www.fda.gov/media/735651/downloa d or www.fda.gov/media/328003/downloa d to access the applicable information sheets. [...] - Normal ETHANOL IN SER/PLAS <10 Narrative: STORE DETECTIVE depression is seen >100 mg/dL. NOTE: This [...] Procedure Abnormality Status --------- ------ Legionella and Streptoco...[[id number]] In process Urine Hold Cup[[id number]] Final result Please view results for these [...] 1 mg (1 mg Oral Given 01/12/25 161) guaiFENesin (Mucinex) 12 hr tablet 1,200 mg (has no administration in time range) melatonin tablet 3 mg (has no administration in time range) mirtazapine (Remeron) tablet 15 mg (has no administration in time range) montelukast (Singulair) tablet 10 mg (has no administration in time range) PARoxetine (Paxil) tablet 30 mg (30 mg Oral Given 01/12/25 1610) QUEtiapine (SEROquel) tablet 50 mg (has no [...] of local fire rescue squad from a fpc facility where she resides. She has a [...] Reformed smoker. She currently resides in a fpc facility. ED diagnostics interpreted by me included [...] specified. DISCHARGE MEDICATIONS: Current Discharge Medication List @[facility](8665,[id number]:LAST:1)@ (Please note: Portions of this note were [...] nodules Near syncope 09/19/2023 Osteoporosis Palpitations Pneumonia [id number] Recurrent major depression Sciatica Thoracic compression fracture ([facility]) Vitamin D deficiency [2] Past [...] - Unmet Transportation Needs (06/06/2024) Received from [facility] PRAPARE - Transportation Lack of Transportation (Medical): Yes Lack of Transportation (Non-Medical): No Physical Activity: Insufficiently Active (07/31/2024) Exercise Vital Sign Days of Exercise per Week: 3 days Minutes of Exercise per Session: 20 min Stress: No Stress Concern Present (07/31/2024) [facility] - Occupational Stress Questionnaire Feeling of Stress : Only a little Recent Concern: Stress - Stress Concern Present (06/06/2024) Received from [facility] - Occupational Stress Questionnaire Feeling of Stress : To some extent Social Connections: Socially Isolated (07/31/2024) Social Connection and Isolation Panel [NHANES] Frequency of Communication with Friends and Family: Three times a week Frequency of Social Gatherings with Friends and Family: Three times a week Attends Hinduism Services: Never Active Member of Clubs or [...] Linder MD at 01/13/2025 2:29 PM EDT [facility] 12-28-2024 Telephone encounter Note Had tele visit today with Gonzalo. As discussed with patient, I ordered CT chest 3 month follow up for new nodules measuring up to 7 mm. Also ordered PFTs, she request this test be ordered late morning or early afternoon. Could we please get both test scheduled and let her know. ~ thank you [facility] 12-28-2024 Miscellaneous Notes Had tele visit today with Gonzalo. As discussed with patient, I ordered CT chest 3 month follow up for new nodules measuring up to 7 mm. Also ordered PFTs, she request this test be ordered late morning or early afternoon. Could we please get both test scheduled and let her know. ~ thank you documented in this encounter [facility] 12-28-2024 History of Presen t illness Narrative Images from the original note were not included. [facility] Pulmonary Medicine [address] [place] [address] Date of Service: 12/28/2024 Visit type: An [...] doing so much better. Currently staying at [facility] for rehabilitation. Ready to go home but [...] then improved. Was treated in house at [facility] with antibiotics - CT chest 11/20/2024 shows [...] treating dyspnea with benefits - eating what retail sales merchandiser development has recommended while at fpc facility FOLLOW UP: No follow-ups on file. [...] cancer Neg Hx documented in this encounter [facility] 12-28-2024 History of Presen t illness Narrative [...] was unable to use video. Patient location: Patient Location: Nursing facility. This patient encounter [...] that they are currently in the state [facility]. If the patient is a minor, permission has been obtained by the parent or guardian for the patient to receive medical care at this visit. [facility] Pulmonary Medicine [address] [place] [address] Date of Service: 12/28/2024 Visit type: An Established patient Chief Complaint/Reason for Referral: No chief complaint on file. SUBJECTIVE History of Present Illness: Gonzalo Ferris Aymbenji ( 1955) is a 69 y.o. female patient, with significant PMH of COPD, emphysema, chronic respiratory failure 3L, pulmonary nodule, sciatica, and tobacco use being seen for pulmonary follow up Spoke with Gonzalo on the phone today, unable to connect via audio. Gonzalo reports she is doing so much better. Currently staying at [facility] for rehabilitation. Ready to go home but [...] pulmonary function test due to being at [facility]. Like us to get that rescheduled requesting [...] then improved. Was treated in house at [facility] with antibiotics - CT chest 11/20/2024 shows [...] treating dyspnea with benefits - eating what retail sales merchandiser development has recommended while at fpc facility FOLLOW UP: No follow-ups on file. [...] the signing provider directly. Electronically signed by: Elysas Tesfaye NP Pulmonary & Sleep Medicine [1] [...] Recurrent major depression Sciatica Thoracic compression fracture ([facility]) Vitamin D deficiency [2] Past [...] cancer Neg Hx documented in this encounter [facility] 12-18-2024 Telephone encounter Note We have been unable to reach your patient to schedule their testing. Test Name: Complete PFT pre and post bronchodilator with FENO Patient canceled 10/24/24 and 12/04/24 [facility] 12-18-2024 Miscellaneous Notes We have been unable to reach your patient to schedule their testing. Test Name: Complete PFT pre and post bronchodilator with FENO Patient canceled 10/24/24 and 12/04/24 documented in this encounter [facility] 09-10-2024 Telephone encounter Note Prescription Refill Information [...] Weathers MA September 10, 2024 9:01 AM [facility] 09-10-2024 Miscellaneous Notes Prescription Refill Information [...] 2024 9:01 AM documented in this encounter [facility] 09-07-2024 Telephone encounter Note Spoke to Nilesh from [facility] and scheduled patient for a follow up on 09/24@10am. Patient has not been seen for quite a while and also is requesting port removal to be scheduled. [facility] 09-07-2024 Miscellaneous Notes Spoke to Nilesh from [facility] and scheduled patient for a follow up on 09/24@10am. Patient has not been seen for quite a while and also is requesting port removal to be scheduled. Nilesh from [facility] pt's port was flushed but there was no blood draw back. Patient requested for the port to be removed due to not being used for roughly 1 year. Please contact Nilesh with further questions at [phone] documented in this encounter [facility] 09-07-2024 Telephone encounter Note Nilesh from [facility] pt's port was flushed but there was no blood draw back. Patient requested for the port to be removed due to not being used for roughly 1 year. Please contact Nilesh with further questions at [phone] [facility] 09-06-2024 History of Presen t illness [...] All questions answered. documented in this encounter [facility] 09-03-2024 Telephone encounter Note Noted. Melva Juárez PA-C [facility] 09-03-2024 Miscellaneous Notes Noted. Melva Juárez PA-C Patient returned call and LVM. Called and spoke with patient Patient was admitted to hospital and recently discharged to a [facility], patient's daughter had submitted request in anticipation of discharge. [facility] is currently managing medications, no longer [...] 2024 2:19 PM documented in this encounter [facility] 09-03-2024 Telephone encounter Note Patient returned call and LVM. Called and spoke with patient Patient was admitted to hospital and recently discharged to a [facility], patient's daughter had submitted request in anticipation of discharge. [facility] is currently managing medications, no longer in need Unsure of anticipated discharge, and if it will be to assisted living or back to home. Will plan to keep office aware. [facility] 08-29-2024 Telephone encounter Note Called patient, no answer at this time. Left voicemail to call the office back. [facility] 08-28-2024 Telephone encounter Note Patient had 30 pills filled on on 08/22. Is she following up with a different provider for prescriptions? [facility] 08-22-2024 Telephone encounter Note Prescription Refill [...] Weathers MA August 22, 2024 2:19 PM [facility] 08-20-2024 Telephone encounter Note Prescription Refill [...] Parks LPN August 20, 2024 11:39 AM [facility] 08-20-2024 Miscellaneous Notes Prescription Refill Information [...] 2024 11:39 AM documented in this encounter [facility] 08-20-2024 History of Presen t illness Narrative Images from the original note were not included. [facility] Pulmonary Medicine [address] [place] [address] Date of Service: 08/20/2024 Visit type: An Established patient Chief Complaint/Reason for Referral: Hospital Follow-up (COPD,PSA/MSSA/STREP LRTI/ESTABLISH PULM OUTPATIENT...) SUBJECTIVE History of Present Illness: Gonzalo Deluca ( 1955) is a 68 y.o. female patient, with significant PMH of COPD, emphysema, chronic respiratory failure 3L, pulmonary nodule, sciatica, and tobacco use being seen for pulmonary hospital follow up Admitted [facility] 07/30/2024 - 08/08/2024 pulmonology was consulted for triple bacterial pneumonia, treated for pseudomona, moraxella and Streptoccus, on top of severe pneumonia, with increased oxygen requirements and chronic respiratory failure. Failure to thrive. Chronic resp failure with severe emphysema, 3L baseline O2. Treated with Dulera, Spiriva. Reports significant weight loss of 40 lbs over the past few months. Currently at [facility], fpc. Presents today with son, states breathing is better than before the hospital. Wearing 3L supplemental continuous oxygen today. SpO2 is 92%, does not appear distressed. Staying at [facility] for fpc and has been beneficial. Follows [...] prednisone taper. Wearing 3L O2 at baseline. custodial currently 2. Acute on chronic respiratory failure with hypoxia ([facility]) - continue supplemental oxygen, baseline 3L NC. Maintain SpO2 88-92% 3. Centrilobular emphysema ([facility]) - CT chest does show [...] left lower lobe, unspecified aspiration pneumonia type ([facility]) - CT chest with new [...] at this time 7. Severe malnutrition (CMS/HCC) ([facility]) - pulmonary cachexia; palliative following and treating dyspnea with benefits - trying to gain weight since breathing has improved - eating what retail sales merchandiser development has recommended while at fpc facility FOLLOW [...] 09/19/2023 Osteoporosis Palpitations Pneumonia Recurrent major depression ([facility]) Sciatica Thoracic compression fracture ([facility]) Vitamin D deficiency [2] Past [...] cancer Neg Hx documented in this encounter [facility] 08-20-2024 Instructions Rosalee Marvin - 08/20/2024 10:30 AM EDT YOUR APPOINTMENT TODAY WAS WITH THE [facility], COPD CLINIC, PULMONARY AND SLEEP MEDICINE OFFICE. PLEASE CALL OUR OFFICE AT [phone] for our [place] office location or [phone] for our [place] location, IF YOU [...] to make improvements. COVID-19 VACCINATION INFORMATION: PH. [phone] [email or web address] [facility] Central Scheduling [phone] [facility] Sleep Scheduling [phone] documented in this encounter [facility] 08-14-2024 Telephone encounter Note Prescription Refill [...] Weathers MA August 14, 2024 10:39 AM [facility] 08-14-2024 Miscellaneous Notes Prescription Refill Information [...] 2024 10:39 AM documented in this encounter [facility] 08-08-2024 Nurse Note Called report to [facility] Pickup scheduled for 3:30pm. [facility] 08-08-2024 Nurse [facility] scheduled [facility]:30[facility]. Wound Care consulted for Pressure Injury Prevention. Pt's Jeri score= 17 on 08/08 Pt's pressure points assessed. Pt stood independently for posterior assessment. Pt's Heels, Buttocks/coccyx, Back, Right elbow, Occiput and ears all intact. Cast in place to left upper extremity. [place] and healed area noted to coccyx. [place] and blanchable tissues noted to bilateral heels. [...] Rosalina Cross RN documented in this encounter [facility] 08-08-2024 History of Presen t illness Narrative Pt has been seen by palliative care during this hospital admission. Provider suggested referral to outside pall care provider at [facility]. Referral sent to [facility], faxed to [phone] documented in this encounter [facility] 08-08-2024 Nurse Note Wound Care consulted for Pressure Injury Prevention. Pt's Jeri score= 17 on 08/08 Pt's pressure points assessed. Pt stood independently for posterior assessment. Pt's Heels, Buttocks/coccyx, Back, Right elbow, Occiput and ears all intact. Cast in place to left upper extremity. [place] and healed area noted to coccyx. [place] and blanchable tissues noted to bilateral heels. [...] any questions or concerns. Rosalina Cross RN [facility] 08-08-2024 Note Formatting of this n ote might be different from the original. Rounds this am DCP: [facility] Called to notify Karishma/dtr: [facility] has overturned the Denial and is approved to go to [facility] Transport arranged for 330pm. Tasked to IMMUNOLOGY SPECIALIST to complete 7,000 Send AVS and Mar to facility Facility is updated RN and MD notified [facility] 08-08-2024 Note Formatting of this n ote might be different from the original. Rounds this am DCP: [facility] Called to notify Karishma/dtr: [facility] has overturned the Denial and is approved to go to [facility] Transport arranged for 330pm. Tasked to IMMUNOLOGY SPECIALIST to complete 7,000 Send AVS and Mar to facility Facility is updated RN and MD notified [facility] 08-08-2024 Miscellaneous Notes Rounds this am DCP: [facility] Called to notify Karishma/dtr: [facility] has overturned the Denial and is approved to go to [facility] Transport arranged for 330pm. Tasked to IMMUNOLOGY SPECIALIST to complete 7,000 Send AVS and Mar to facility Facility is updated RN and notified Patient Choice Patient Name: GONZALO DELUCA Date of : 1955 All Providers Sent Referral Name: Vinicius Alvarez CPAN Member Phone: [phone] Address: [address] [place] [address] Name: [facility] Phone: [phone] Address: [address] [place] [address] Name: [employer] Phone: [phone] Address: [address] [place] [address] Name: [facility] Phone: [phone] Address: [address] [place] [address] MAR, Discharge med list transmitted and 7000 [facility]s [facility] per TCC request. Problem: Knowledge [...] -Notified Dr. Beverly -Updated clinicals faxed to [phone] -If the appeal process is upheld, pt will have to go home with [facility]. -mergers and acquisitions manager to follow and assist as needed. [...] denying SNF. Pt asked to go to OR. She is in the process of trying to get to [facility] through her waiver services. She started [...] Appeals number given to pt to call: [phone]. Appeals fax number: [phone]. Pt was calling as this CM was walking out of her room. mergers and acquisitions manager to follow and assist as needed. Spoke with patients daughter Karishma, regarding dc plans, who states that they would like to ideally get patient into fpc and then get patient over to [facility] under Medicaid. This will require an insurance [...] submit an appeal. The appeal number for [facility] is [phone] and fast appeal fax [phone] is not open on the weekend and this will need to be initiated on Tuesday. Discussed with patient and she wanted to discuss with her daughter prior to deciding to pursue appeal or discharge home with [facility]. She did state that her daughter was [...] discharge needs are met Outcome: Progressing Called [facility] and spoke with Xiao and insurance is requesting peer to peer to be completed by 5/19 at 12 noon central standard time. Number for peer to peer is [phone] option 5. Will need members name, and [...] Goal: Promote nutritional intake Outcome: Progressing Tasked [facility] manager mechanical to follow for pending auth to [facility]. 7000 will need to be completed at the time of discharge. mergers and acquisitions manager to follow and assist as needed. Sent updated notes to [facility] via [facility] per TCC request. Await review and response regarding ability to accept. TCC notified. Care Management Progress Note -Discharge plan is [facility] -Tasked [facility] extruding department supervisor to start auth. -Tasked IMMUNOLOGY SPECIALIST to send updated clinical notes to facility. -mergers and acquisitions manager to follow for auth approval and [...] are met Outcome: Progressing Referral placed to [facility] per [facility] request. Await review and response regarding ability to accept. TCC notified. Care Management Progress Note -Spoke with pt at bedside for SNF choices. -Pt would like referrals sent to [facility], [facility], [facility], and [facility]. -Tasked [facility] to send those referrals. -Will speak with pt again once facility responses are in for facility of choice. -mergers and acquisitions manager to follow and assist as needed. Length of Stay (Days): 1 GMLOS: No GMLOS Documented -Spoke with pt and she has chosen [facility] as FOC. Informed facility. ADOD is [address] Bishop. Anticipate starting auth tomorrow. mergers and acquisitions manager to follow and assist as needed. [...] case she decides before then on choices. -mergers and acquisitions manager to follow and assist as needed. [...] My discharge needs are met Outcome: Progressing Business Specialist following case for Discharge Needs. Images from the original note were not included. [facility] Palliative Care Transitions of [...] short of breath when trying to eat. -Bulk Materials Handling Plant Operator would be helpful. -BMI 15.28 -Albumin-->3.0 -Monitor. [...] Skilled Rehab Facility FACILITY/HOME CARE AGENCY NAME: [facility] Follow up with [facility] on office to call patient. [...] 5L last read documented in this encounter [facility] 08-08-2024 Note Formatting of this n ote might be different from the original. Patient Choice Patient Name: GONZALO DELUCA Date of : 1955 All Providers Sent Referral Name: Vinicius AMAYA Member Phone: [phone] Address: [address] [place] [address] Name: [facility] Phone: [phone] Address: [address] [place] [address] Name: [employer] Phone: [phone] Address: [address] [place] [address] Name: [facility] ([facility] Phone: [phone] Address: [address] [place] [address] [facility] 08-08-2024 Note Formatting of this n ote might be different from the original. Patient Choice Patient Name: GONZALO DELUCA Date of : 1955 All Providers Sent Referral Name: Benedict[employer]encia Alvarez CPAN Member Phone: [phone] Address: [address] [place] [address] Name: [facility] Phone: [phone] Address: [address] [place] [address] Name: [employer] Phone: [phone] Address: [facility] [place] [address] Name: [facility] Phone: [phone] Address: [address] [place] [address] T [facility] 08-08-2024 Note Formatting of this n ote might be different from the original. MAR, Discharge med list transmitted and 7000 in HENs to [facility] via [facility] per TCC request. [facility] 08-08-2024 Note Formatting of this n ote might be different from the original. MAR, Discharge med list transmitted and 7000 in HENs to [facility] via [facility] per TCC request. [facility] 08-08-2024 Note [facility] 08-08-2024 Hospital course Narrative Images from [...] status. Recent healthcare interactions include consultations with [facility], palliative care, pulmonology, orthopedic surgery, geriatrics, [...] respiratory failure and severe emphysema. Plan: - MATH AND SCIENCE DIVISION CHAIR evaluation: recommended regular solids with thin liquids, [...] Plus 07/31/24 1030 07/31/24 1031 Supplement:HS Snack; [place] Ensure Plus Until discontinued Question Answer Comment Frequency HS Snack Select supplement: [place] Ensure Plus 07/31/24 1030 07/30/24 2313 Adult [...] time. Chronically ill apperances, LABS: Recent Labs 08/06/2411708/07/2413708/08/24 0108 NA 141 141 141 K 3.8 3.7 3.9 CL 101 101 101 CO2 33* 33* 32* BUN 27* 28* 22 CREATININE 0.56* 0.59 0.63 GLUCOSE 93 124* 99 CALCIUM 8.9 9.3 8.6* Recent Labs 08/06/24 01108/07/248 08/08/24 0108 WBC 7.8 8.7 12.6* RBC [...] Your Medications These medications were sent to [facility]/pharmacy #[id number] [place] [address] [facility] [place] [address] PARoxetine 30 MG tablet You can get these medications from any pharmacy Bring a paper prescription for each of these medications morphine 15 MG tablet Information about where to get these medications is not yet available Ask your nurse or doctor about these medications albuterol (2.5 MG/3ML) 0.083% nebulizer solution folic acid 1 MG tablet QUEtiapine 50 MG tablet Recommended Follow-up: [facility] [address] [facility] [address] [facility] [address] Follow up Cognitive Evaluation Betsey Gresham MD [address] [facility] [place] [address] Schedule an appointment as soon as possible for a visit in 3 week(s) Elyssa Tesfaye NP [address] [place] [address] Go on 08/20/2024 Pulmonary hospital follow up at 10:30 AM Complexity of Follow up: [] Moderate Complexity: follow up within 7-14 calendar days (83534) [x] Severe Complexity: follow up within 7 calendar days (63417) Follow up Testing, Pending results or Referrals [...] Rena Beverly MD Division of Hospitalist Medicine [facility] [place] 08/08/2024, 12:48 PM [1] Past Medical History: [...] in this encounter [facility] 08-08-2024 History of Presen t illness Narrative Patient chart reviewed and being rounded on. Note to follow. 6:29 AM 08/08/24 Rena Beverly MD Division of Hospitalist Medicine [facility] [place] Images from the original note were not included. [facility], Pulmonary Medicine [address] [place], [place] [id number] Patient - Gonzalo Deluca, Age - 68 y.o. - 1955 Room Number - B2-254/B2-254 B Consulting - Rena Beverly MD Primary Care Physician - HERMIN[id number] Date of Admission - 07/30/2024 4:40 PM [...] She is not currently following with a spider assembler. She is on Breo ellipta, Spiriva, and [...] prosthetic devices, implants and grafts, initial encounter ([facility]) Chronic pain COPD (chronic obstructive pulmonary disease) ([facility]) DDD (degenerative disc disease), cervical Leukocytosis Malignant neoplasm of exocervix ([facility]) Recurrent major depression ([facility]) Pulmonary nodule S/P hysterectomy Sciatica Shortness of breath Supplemental oxygen dependent PNA (pneumonia) H/O: CVA (cerebrovascular accident) Former smoker Nondisplaced fracture of neck of left femur ([facility]) Lumbar compression fracture, closed, initial [...] status. Recent healthcare interactions include consultations with [facility], palliative care, pulmonology, orthopedic surgery, geriatrics, and [...] of failure to thrive and debility - MATH AND SCIENCE DIVISION CHAIR evaluation: recommended regular solids with thin liquids, sitting upright, slow rate of intake, and small bites - custodial's has been denied - will need appeal. [...] Information Primary Emergency Contact: Karishma Deluca Address: [address] [place] [address] [place] [address] [facility] Mobile Relation: Daughter Secondary Emergency Contact: Jace Deluca Mobile Relation: Son Rena Tuyet Beverly MD Division of Hospitalist Medicine [facility] [1] Past Medical History: Diagnosis Date [...] (interosseous) Fluid Accumulation: No significant fluid accumulation Spray Booth Operator Strength: Nutrition Assessment: per MD-BRIEF HOSPITAL COURSE: [...] status. Recent healthcare interactions include consultations with [facility], palliative care, pulmonology, orthopedic surgery, geriatrics, [...] 5.7 oz) % Weight Change (Calculated): -27.2 [place] Body Weight (lbs) (Calculated): 120 lbs [place] Body Weight (Kg) (Calculated): 55 kg % [place] Body Weight (Calculated): 74.2 % BMI (kg/m2) [...] Oral Nutrition Supplement Phillip Bradshaw RD Contact: [phone] or secure chat [facility] Geriatric Medicine Inpatient Consult Service Admission [...] deficits. --Recommend outpatient follow up at [facility] for more in depth [...] (L) 07/30/2024 Lab Results Component Value Date [id number] 07/30/2024 Lab Results Component Value Date VITD25 30 09/21/2023 [1] Current Facility-Administered Medications: acetaminophen (Tylenol) tablet 650 mg, 650 mg, Oral, q6h PRN OR acetaminophen (Tylenol) suppository 650 mg, 650 mg, Rectal, q6h PRN, Lauren Serna MD acetaminophen (Tylenol) tablet 650 mg, 650 mg, Oral, BID, Saad Haynese, SYSTEMS ANALYSIS MANAGER - NAILING MACHINE OPERATOR, 650 mg at 08/06/24 0841 albuterol [...] 15 mg, Oral, q4h PRN, Imelda Bernard, SYSTEMS ANALYSIS MANAGER - NAILING MACHINE OPERATOR, 15 mg at 08/06/24 0856 naloxone (Narcan) injection 0.4 mg, 0.4 mg, IntraVENous, q5 min PRN, Lauren Serna MD ondansetron ODT (Zofran-ODT) disintegrating tablet 4 mg, 4 mg, Oral, q8h PRN OR ondansetron (Zofran) injection 4 mg, 4 mg, IntraVENous, q6h PRN, Lauren Serna MD PARoxetine (Paxil) tablet 30 mg, 30 mg, Oral, q AM, Saad Telles APRN - NAILING MACHINE OPERATOR, 30 mg at 08/06/24 0841 polyethylene [...] mg, 10 mg, Oral, Daily, Leann Cross SYSTEMS ANALYSIS MANAGER - NAILING MACHINE OPERATOR QUEtiapine (SEROquel) tablet 50 mg, 50 mg, Oral, Nightly PRN, Saad Telles APRN - NAILING MACHINE OPERATOR, 50 mg at 08/05/24 2048 sodium chloride ([place]) 0.65 % nasal spray 2 spray, 2 spray, Each Nostril, q2h PRN, Dejuan Bishop MD, 2 spray at 08/02/24 1621 tiotropium (Spiriva Respimat) 2.5 MCG/ACT inhaler 2 puff, 2 puff, Inhalation, Daily, Lauren Serna MD, 2 puff at 08/06/24 0839 Images from the original note were not included. PHYSICAL THERAPY [facility] Treatment Note Name/MRN: Gonzalo Deluca ([id number]) Date of : 1955 Age: 68 y.o. Room/Bed: B2-254/B2-254 B Visit #: 5 out of 7 Discharge Recommendation: Jail Facility Other: TBD at next level of [...] from the original note were not included. [facility], Pulmonary Medicine [address] [place] [address] Patient - Gonzalo Deluca, Age - 68 y.o. - 1955 Room Number - B2-254/B2-254 B Consulting - Rena Beverly MD Primary Care Physician - HERMINIA CASE MD [facility] # - [id number] Date of Admission - 07/30/2024 4:40 PM [...] She is not currently following with a spider assembler. She is on Breo ellipta, Spiriva, and [...] from 2016 Prednisone taper as ordered Josué Mcgarw Counseled on smoking cessation. Patient quit smoking [...] prosthetic devices, implants and grafts, initial encounter ([facility]) Chronic pain COPD (chronic obstructive pulmonary disease) ([facility]) DDD (degenerative disc disease), cervical Leukocytosis Malignant neoplasm of exocervix (HCC) Recurrent major depression ([facility]) Pulmonary nodule S/P hysterectomy Sciatica Shortness of breath Supplemental oxygen dependent PNA (pneumonia) H/O: CVA (cerebrovascular accident) Former smoker Nondisplaced fracture of neck of left femur (HCC) Lumbar compression fracture, closed, initial encounter ([facility]) Severe malnutrition (CMS/HCC) ([facility]) Falls frequently Unintentional weight loss Debility PFO (patent foramen ovale) Adult failure to thrive Anxiety and depression Cognitive deficits At risk for delirium Images from the original note were not included. OCCUPATIONAL THERAPY [facility] Treatment Note Name/MRN: Gonzalo Deluca ([id number]) Date of : 1955 Age: 68 y.o. Room[facility]Bed: [facility] B Visit #: 4 out of [...] of SNF. Pt would likely benefit from LONG-TERM for longer term needs. Subjective Pt sleeping [...] of failure to thrive and debility - MATH AND SCIENCE DIVISION CHAIR evaluation: recommended regular solids with thin liquids, sitting upright, slow rate of intake, and small bites - custodial's has been denied - will need appeal. [...] Information Primary Emergency Contact: Karishma Deluca Address: [address] [place] [address] [place] [address] [facility] Mobile Relation: Daughter Secondary Emergency Contact: Jace Deluca Mobile Relation: Son Rena Tuyet Beverly MD Division of Hospitalist Medicine [facility] [1] Past Medical History: Diagnosis Date [...] Medical Center Treatment Note Name/MRN: Gonzalo Deluca ([id number]) Date of : 1955 Age: 68 y.o. Room/Bed: B2254/B2-254 B Visit #: 4 out of 7 Discharge Recommendation: Jail Facility Other: TBD at next level of [...] Raw Score (No Stairs) : 17 [facility] Score: Walked 10 steps or more (i.e. [...] Medical Center Treatment Note Name/MRN: Gonzalo Deluca ([id number]) Date of : 1955 Age: 68 y.o. Room/Bed: [facility] B Visit #: 3 out of 6 Discharge Recommendation: Jail Facility Equipment Needed: No Assessment Pt tolerated [...] from the original note were not included. [facility], Pulmonary Medicine [address] [place] [address] Patient - Gonzalo Deluca, Age - 68 y.o. 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 Recent healthcare interactions include consultations with [facility], palliative care, pulmonology, orthopedic surgery, geriatrics, and [...] of failure to thrive and debility - MATH AND SCIENCE DIVISION CHAIR evaluation: recommended regular solids with thin liquids, [...] Information Primary Emergency Contact: Karishma Deluca Address: [address] [place], [place] [id number] [facility] Mobile Relation: Daughter Secondary Emergency Contact: Jace Deluca Mobile Relation: Darshan Rena Tuyet Beverly MD Division of Hospitalist Medicine [facility] [1] Past Medical History: Diagnosis Date [...] from the original note were not included. [facility], Pulmonary Medicine [address] [place] [address] Patient - Gonzalo Deluca, Age - 68 y.o. 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 [...] prosthetic devices, implants and grafts, initial encounter ([facility]) Chronic pain COPD (chronic obstructive pulmonary disease) ([facility]) DDD (degenerative disc disease), cervical Leukocytosis Malignant neoplasm of exocervix ([facility]) Recurrent major depression ([facility]) Pulmonary nodule S/P hysterectomy Sciatica Shortness of breath Supplemental oxygen dependent PNA (pneumonia) H/O: CVA (cerebrovascular accident) Former smoker Nondisplaced fracture of neck of left femur ([facility]) Lumbar compression fracture, closed, initial encounter ([facility]) Severe malnutrition (CMS/HCC) ([facility]) Falls frequently Unintentional weight loss [...] status. Recent healthcare interactions include consultations with [facility], palliative care, pulmonology, orthopedic surgery, geriatrics, [...] of failure to thrive and debility - MATH AND SCIENCE DIVISION CHAIR evaluation: recommended regular solids with thin liquids, [...] Information Primary Emergency Contact: Karishma Deluca Address: [address] [place] [address] Mobile Relation: Daughter Secondary Emergency Contact: Jace Deluca Mobile Relation: Son Rena Beverly MD Division of Hospitalist Medicine [facility] [1] Past Medical History: Diagnosis Date [...] [facility] Name/MRN: Gonzalo Deluca ([id number]) Date: 08/04/2024 Chart review completed this date. PT attempted. Pt supine. Receiving breathing treatments during first attempt second attempt patient requesting 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 return after eating breakfast. Pt tray had not yet arrived. Max encouragement provided with no success. Multiple options for therapy participation provided with no success. PT will continue to follow. Will re-attempt another time/date as schedule permits. Salina Miller, 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 Cosigned by Gracy Garza PT at 08/04/2024 1:15 PM EDT Nutrition note -received consult for poor jeri <12 . Jeri is 20 -already being followed by RD. [facility] Respiratory Care Department Progress Note [...] (interosseous) Fluid Accumulation: No significant fluid accumulation Spray Booth Operator Strength: Nutrition Assessment: 68 year old woman who remains admitted to [facility] at direction of PCP with FTT- [...] 122.35# 09/08/23) % Weight Change (Calculated): -24.3 [place] Body Weight (lbs) (Calculated): 120 lbs [place] Body Weight (Kg) (Calculated): 55 kg % [place] Body Weight (Calculated): 77.2 % BMI (kg/m2) [...] Nutrition Supplement Celeste Garcia RDN, LDN, Contact: *[phone] [facility] Geriatric Medicine Inpatient Consult Service Admission [...] into [place] waiver --08/03: Discharge plan is [facility] when medically stable Severe Malnutrition [...] note, this was the dose recommended by [facility] psychiatry when she was hospitalized in [...] deficits. --Recommend outpatient follow up at [facility]) for more in depth [...] (L) 07/30/2024 Lab Results Component Value Date [id number] 07/30/2024 Lab Results Component Value Date VITD25 30 09/21/2023 [1] Current Facility-Administered Medications: acetaminophen (Tylenol) tablet 650 mg, 650 mg, Oral, q6h PRN OR acetaminophen (Tylenol) suppository 650 mg, 650 mg, Rectal, q6h PRN, Lauren Serna MD acetaminophen (Tylenol) tablet 650 mg, 650 mg, Oral, BID, Saad Ezzie, SYSTEMS ANALYSIS MANAGER - NAILING MACHINE OPERATOR, 650 mg at 08/03/24 0911 albuterol (2.5 [...] Lauren Serna MD, 2 spray at 08/01/24 134 iopamidol (Isovue-370) 76 % injection 75 mL, [...] BID, Lauren Serna MD, 2 puff at 08/03/2414 montelukast (Singulair) tablet 10 mg, 10 mg, Oral, Nightly, Lauren Serna MD, 10 mg at 08/02/242047 morphine (MSIR) tablet 15 mg, 15 mg, Oral, q4h PRN, Imelda Bernard APRN - NAILING MACHINE OPERATOR, 15 mg at 08/03/24908 naloxone (Narcan) injection 0.4 mg, 0.4 mg, IntraVENous, q5 min PRN, Lauren Serna MD ondansetron ODT (Zofran-ODT) disintegrating tablet 4 mg, 4 mg, Oral, q8h PRN OR ondansetron (Zofran) injection 4 mg, 4 mg, IntraVENous, q6h PRN, Lauren Serna MD PARoxetine (Paxil) tablet 30 mg, 30 mg, Oral, q AM, Saad Telles APRN - NAILING MACHINE OPERATOR, 30 mg at 08/03/24909 polyethylene glycol (PEG) 3350 (Miralax) packet 17 g, 17 g, Oral, Daily PRN, Lauren Serna MD predniSONE (Deltasone) tablet 30 mg, 30 mg, Oral, Daily, 30 mg at 08/03/24909 FOLLOWED BY [START ON 08/05/2024] predniSONE (Deltasone) tablet 20 mg, 20 mg, Oral, Daily FOLLOWED BY [START ON 08/07/2024] predniSONE (Deltasone) tablet 10 mg, 10 mg, Oral, Daily, Leann Cross APRN - NAILING MACHINE OPERATOR QUEtiapine (SEROquel) tablet 50 mg, 50 mg, Oral, Nightly PRN, Saad Telles SYSTEMS ANALYSIS MANAGER - NAILING MACHINE OPERATOR, 50 mg at 08/02/242047 sodium chloride ([place]) 0.65 % nasal spray 2 spray, 2 spray, Each Nostril, q2h PRN, Dejuan Bishop MD, 2 spray at 08/02/24 1621 tiotropium (Spiriva Respimat) 2.5 MCG/ACT inhaler 2 puff, 2 puff, Inhalation, Daily, Lauren Serna MD, 2 puff at 08/03/24 0915 Images from the original note were not included. PHYSICAL THERAPY [facility] Treatment Note Name/MRN: Gonzalo Deluca ([id number]) Date of : 1955 Age: 68 y.o. Room/Bed: [facility] B Visit #: 3 out of 7 visits Discharge Recommendation: Jail Facility Other: TBD at next level of [...] Medical Center Treatment Note Name/MRN: Gonzalo Deluca ([id number]) Date of : 1955 Age: 68 y.o. Room/Bed: B2-254/B2-254 B Visit #: 2 out of 6 visits Discharge Recommendation: Jail Facility Equipment Needed: No Prior Level of Function Prior Level of ADL Function: Independent Prior Level of Mobility: Independent; Device: Straight Cane Prior Level of Transfers: Independent Assessment Pt tolerated session fair, continues to be limited by fatigue and SOB. Pt completed bed mobility at Mod I. Pt completed x3 STS and LE dressing/bathing at [facility]. Pt completed seated UE bathing at [...] doffed pants with unilateral UE support at [facility]. Pt demo no overt LoB. Pt demo threading LE clothing while seated and managed over hips in standing at [facility]. Pt doffed/donned austin socks while seated EOB with figure 4 tech at [facility] I. Pt completed seated face washing at EOB at [facility] I. Pt completed UE bathing while seated EOB with Mod A after set up. Pt with IV running and in personal shirt, unable to fully doff shirt for bathing. Pt required assist to wash R side due to LUE with cast. Pt completed standing LE bathing (periarea) at [facility]. Pt demo no overt LoB, generally unstable. Pt required seated rest break x2 due to increased SOB. Pt completed BLE bathing while seated without hands on assist Bed Mobility Supine to sit: Modified Independent Sit to supine: Modified Independent Scooting: Modified Independent HOB Elevated Use of bed rail(s) Pt completed all aspects of bed mobility with use of bed features at [facility] I. Pt able to maintain LUE NWB [...] status. Recent healthcare interactions include consultations with [facility], palliative care, pulmonology, orthopedic surgery, geriatrics, and [...] of failure to thrive and debility - MATH AND SCIENCE DIVISION CHAIR evaluation: recommended regular solids with thin liquids, [...] Information Primary Emergency Contact: Nacho Delucai Address: [address] [place] [address] [place] [address] [facility] Mobile Relation: Daughter Secondary Emergency Contact: Jace Deluca Mobile Relation: Son Rena Tuyet Beverly MD Division of Hospitalist Medicine [facility] [1] Past Medical History: Diagnosis Date [...] from the original note were not included. [facility], Pulmonary Medicine [address] [place] [address] Patient - Gonzalo Deluca, Age - 68 y.o. - 1955 Room Number - B2-254/B2-254 B Consulting - Rena Beverly MD Primary Care Physician - HERMINIA CASE [id number] Date of Admission - 07/30/2024 4:40 PM [...] hematemesis melena hematuria Apparently not seeing any spider assembler recently Was on Dulera Spiriva and rescue inhaler compliant with the medication Not on NIV No PFT available in [facility] All other systems reviewed Objective [...] prosthetic devices, implants and grafts, initial encounter ([facility]) Chronic back pain COPD (chronic obstructive pulmonary disease) ([facility]) DDD (degenerative disc disease), cervical Leukocytosis Malignant neoplasm of exocervix ([facility]) Recurrent major depression ([facility]) Pulmonary nodule S/P hysterectomy Sciatica Shortness of breath Supplemental oxygen dependent PNA (pneumonia) H/O: CVA (cerebrovascular accident) Former smoker Nondisplaced fracture of neck of left femur ([facility]) Lumbar compression fracture, closed, initial encounter ([facility]) Severe malnutrition (CMS/HCC) ([facility]) Falls frequently Unintentional weight loss [...] short of breath when trying to eat. -Bulk Materials Handling Plant Operator would be helpful. -BMI 15.28 -Albumin-->3.0 -Monitor. [...] Improve or Maintain Function/Quality of Life, Preserve Silex/Autonomy/Control, and Remain at Home Advanced Directives: DNR-CCA, DNI Functional Assessment: PPS 70% amb reduced; can't do normal work/some disease; full self care; normal or reduced intake; full LOC Prognosis: depends upon goals of care Spiritual Assessment: No spiritual distress identified Bereavement and Grief: To Be Determined PDMP/OARRS Reviewed: Yes-reviewed ROS: See palliative care ROS/ESAS below; All other systems were reviewed and are negative. [place] Symptom Assessment Score [place] Score Pain Score (if non-verbal, add .FLACC [...] Medical Center Treatment Note Name/MRN: Gonzalo Deluca ([id number]) Date of : 1955 Age: 68 y.o. Room/Bed: -254/[facility] B Visit #: 2 out of 7 visits Discharge Recommendation: Continue to assess pending progress, Jail Facility Other: TBD at next level of [...] 10 Minutes (gait x1) Rayo Joseph PT [facility] Geriatric Medicine Inpatient Consult Service Admission [...] deficits. --Recommend outpatient follow up at [facility] for more in depth [...] fracture, Vitamin D deficiency, anxiety, presented to [facility] on 07/30/24 with complaints of weight [...] (L) 07/30/2024 Lab Results Component Value Date [id number] [id number] 07/30/2024 Lab Results Component Value Date VITD25 30 09/21/2023 Reviewed: allergies, previous encounters, imaging, active problem lists, medications, and labs [1] Current Facility-Administered Medications: acetaminophen (Tylenol) tablet 650 mg, 650 mg, Oral, q6h PRN OR acetaminophen (Tylenol) suppository 650 mg, 650 mg, Rectal, q6h PRN, Lauren eSrna MD acetaminophen (Tylenol) tablet 650 mg, 650 [...] BID, Lauren Serna MD, 2 puff at 08/02/24805 montelukast (Singulair) tablet 10 mg, 10 mg, Oral, Nightly, Lauren Serna MD, 10 mg at 08/01/242032 morphine (MSIR) tablet 15 mg, 15 mg, Oral, q4h PRN, Imelda Bernard, SYSTEMS ANALYSIS MANAGER - NAILING MACHINE OPERATOR, 15 mg at 08/02/24 1156 naloxone (Narcan) injection 0.4 mg, 0.4 mg, IntraVENous, q5 min PRN, Lauren Serna MD ondansetron ODT (Zofran-ODT) disintegrating tablet 4 mg, 4 mg, Oral, q8h PRN OR ondansetron (Zofran) injection 4 mg, 4 mg, IntraVENous, q6h PRN, Lauren Serna MD PARoxetine (Paxil) tablet 30 mg, 30 mg, Oral, q AM, Saad Telles, SYSTEMS ANALYSIS MANAGER - NAILING MACHINE OPERATOR, 30 mg at 08/02/24 0936 polyethylene glycol [...] CNP, 50 mg at 08/01/242032 sodium chloride ([place]) 0.65 % nasal spray 2 spray, 2 spray, Each Nostril, q2h PRN, Dejuan Bishop MD tiotropium (Spiriva Respimat) 2.5 MCG/ACT inhaler 2 puff, 2 puff, Inhalation, Daily, Lauren Serna MD, 2 puff at 08/02/24 0806 Hospitalist Progress Note 08/02/2024 [phone]: Please page me ([phone]) for patient care issues. [phone]: Please page [facility] night Hospitalist for any issues. Subjective: Admit Date: 07/30/2024 PCP: HERMINIA CASE MD Room#: B2-254/B2-254 B Interval History: Patient is sitting on the bed, still on 5 L nasal cannula saturating well. No signs of respiratory distress noticed Denies any cough or sputum production pain No other significant overnight issues. Adult diet Regular @[id number]@ 24HR INTAKE/OUTPUT: No intake or output data [...] MD Division of Hospitalist Medicine Inpatient Medical Services/[facility]: [phone] Acute hypoxic respiratory failure [1] Past Medical [...] Medical Center Treatment Note Name/MRN: Gonzalo Deluca ([id number]) Date of : 1955 Age: 68 y.o. Room/Bed: [facility]254/[facility] B Visit #: 1 out of 6 visits Discharge Recommendation: Jail Facility, Continue to assess pending progress Equipment [...] 08/07/24 Therapy Time Individual Co-treatment Time In 09 Time Out 09 Minutes 15 Darius Worrell [...] from the original note were not included. [facility], Pulmonary Medicine [address] [place] [id number] Patient - Gonzalo Deluca, Age - 68 y.o. 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 [...] prosthetic devices, implants and grafts, initial encounter ([facility]) Chronic back pain COPD (chronic obstructive pulmonary disease) ([facility]) DDD (degenerative disc disease), cervical Leukocytosis Malignant neoplasm of exocervix (HCC) Recurrent major depression (HCC) Pulmonary nodule S/P hysterectomy Sciatica Shortness of breath Supplemental oxygen dependent PNA (pneumonia) H/O: CVA (cerebrovascular accident) Former smoker Nondisplaced fracture of neck of left femur ([facility]) Lumbar compression fracture, closed, initial encounter ([facility]) Severe malnutrition (CMS/HCC) ([facility]) Falls frequently Unintentional weight loss Debility PFO (patent foramen ovale) Adult failure to thrive Hospitalist Progress Note 08/01/2024 [phone]: Please page me ([phone]) for patient care issues. [phone]: Please page [facility] night Hospitalist for any issues. Subjective: Admit Date: 07/30/2024 PCP: HERMINIA CASE MD Room#: B2-254/B2-254 B Interval History: Patient is sitting on the chair, denies any chest pain shortness of breath or palpitations Denies any upper extremity pain. No other significant overnight issues. Adult diet Regular @[id number]@ 24HR INTAKE/OUTPUT: Intake/Output Summary (Last 24 hours) [...] MD Division of Hospitalist Medicine Inpatient Medical Services/[facility]: [phone] [1] Past Medical History: Diagnosis Date Abnormal [...] Medical Center Treatment Note Name/MRN: Gonzalo Deluca ([id number]) Date of : 1955 Age: 68 y.o. Room/Bed: [facility] B Visit #: 1 out of 7 visits Discharge Recommendation: Continue to assess pending progress, Jail Facility Other: TBD at next level of [...] Raw Score (No Stairs) : 15 [facility]-HLM -[facility] Score: Walked 25 ft or more (i.e. [...] Esparza PT at 08/01/2024 4:08 PM EDT [facility] Geriatric Medicine Inpatient Consult Service Admission [...] at [facility] for more in depth [...] HS --Monitor for constipation/urinary retention - last 08/01 --Possible medication contributions: Steroids Follow-up: will follow with you Subjective Chief Complaint: weakness Geriatrics consulted for "falls at home, failure to thrive" HPI- The patient is known to me. 68 y.o. year-old female with PMH of COPD, cervical cancer, DDD, DJD, Lung nodules, Osteoporosis, Depression, Compression fracture, Vitamin D deficiency, anxiety, presented to [facility] on 07/30/24 with complaints of weight [...] (L) 07/30/2024 Lab Results Component Value Date [id number] 07/30/2024 Lab Results Component Value Date [...] Lauren Serna MD, 20 mg at 08/01/24 06 mirtazapine (Remeron) tablet 15 mg, 15 [...] not included. Speech-Language Pathology SPEECH LANGUAGE PATHOLOGY [facility] Dysphagia Treatment Note Patient Name: Gonzalo Deluca Evaluation Date: 08/01/2024 Date of : 1955 Admission Date: 07/30/2024 4:40 PM Age: 68 y.o. Room/Bed: [facility] B Subjective Patient alert and cooperative. Seen [...] Plus 07/31/24 1030 07/31/24 1031 Supplement:HS Snack; [place] Ensure Plus Until discontinued Question Answer Comment Frequency HS Snack Select supplement: [place] Ensure Plus 07/31/24 1030 07/30/24 2313 Adult [...] bites/sips Patient has achieved all acute care MATH AND SCIENCE DIVISION CHAIR goals. 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 -Bulk Materials Handling Plant Operator would be helpful. -BMI 15.28 -Albumin-->3.0 -Monitor. [...] emphysema. -Pulmonology consulted, await recs. Discussed with FILM AND VIDEO EDITOR Leann this AM. She will need follow [...] Improve or Maintain Function/Quality of Life, Preserve [place]/Autonomy/Control, and Remain at Home Advanced Directives: DNR Functional Assessment: PPS 70% amb reduced; can't do normal work/some disease; full self care; normal or reduced intake; full LOC Prognosis: depends upon goals of care Spiritual Assessment: No spiritual distress identified Bereavement and Grief: To Be Determined PDMP/OARRS Reviewed: Yes-reviewed ROS: See palliative care ROS/ESAS below; All other systems were reviewed and are negative. [place] Symptom Assessment Score [place] Score Pain Score (if non-verbal, add .FLACC [...] 07/30/2024 PLT 225 07/30/2024 Hospitalist Progress Note 07/31/[phone]: Please page me ([phone]) for patient care issues. [phone]: Please page [facility] night Hospitalist for any issues. Subjective: Admit Date: 07/30/2024 PCP: HERMINIA CASE MD Room#: [facility] B Interval History: Patient is sitting on the bed, denies any chest pain or shortness of breath. Denies any abdominal pain nausea or vomitings No other significant overnight issues. Adult diet Regular @[id number]@ 24HR INTAKE/OUTPUT: Intake/Output Summary (Last 24 hours) [...] MD Division of Hospitalist Medicine Inpatient Medical Services/[facility]: [phone] [1] Past Medical History: Diagnosis Date Abnormal [...] not included. Speech-Language Pathology SPEECH LANGUAGE PATHOLOGY [facility] SPEECH THERAPY DIET RECOMMENDATIONS Diet: Regular solids (SOFT CHOICES as NEEDED)and Thin liquids Medications: as tolerated Precautions: - Upright positioning for all PO intake - Slow rate of intake - Small bites/sips Images from the original note were not included. PHYSICAL THERAPY [facility] Initial Evaluation Name/MRN: Gonzalo Deluca ([id number]) Evaluation Date: 07/31/2024 Date of : 1955 Admission Date: 07/30/2024 4:40 PM Age: 68 y.o. Room/Bed: [facility] B Discharge Recommendation: Continue to assess pending progress, Jail Facility Other: TBD at next level of [...] Problem List Diagnosis Date Noted Severe malnutrition ([facility]/HCC) ([facility]) 07/31/2024 Adult failure to thrive 07/30/2024 Falls frequently 09/20/2023 Unintentional weight loss 09/20/2023 Debility 09/20/2023 PFO (patent foramen ovale) 09/20/2023 Lumbar compression fracture, closed, initial encounter ([facility]) 02/13/2023 Nondisplaced fracture of neck of left femur ([facility]) 11/06/2022 Other specified complication of vascular prosthetic devices, implants and grafts, initial encounter ([facility]) 08/06/2021 Poor venous access 12/19/2019 H/O: CVA (cerebrovascular accident) 12/14/2019 Malignant neoplasm of exocervix ([facility]) 11/07/2019 S/P hysterectomy 11/07/2019 PNA (pneumonia) 08/02/2019 Leukocytosis 04/13/2018 Shortness of breath 04/13/2018 DDD (degenerative disc disease), cervical 04/12/2018 Recurrent major depression ([facility]) 04/12/2018 Chronic back pain 04/10/2017 COPD (chronic obstructive pulmonary disease) ([facility]) 04/10/2017 Pulmonary nodule 04/10/2017 Sciatica [...] Responsibilities: Independent Receives Help From: Family Active Band Saw Marker: N/A Prior Level of Function Prior Level [...] Stairs) : 15 JH-HLM JH-HLM Score: Walked 10 steps or [...] supervision is transferred to a [facility] Therapy Services Physical Therapist. Goals and/or [...] major depression (HCC) Sciatica Thoracic compression fracture ([facility]) Vitamin D deficiency [2] Past Surgical History: Procedure Laterality Date CYSTOSCOPY 01/12/2017 OFFICE PROCEDURE CYSTOSCOPY 02/11/2017 C&P bladder biopsy EYE SURGERY detached retina 1994 HYSTERECTOMY 11/06/2019 ABDOMINAL RADICAL HYSTERECTOMY WITH BSO AND PELVIC LYMPH; DR[facility]EN[facility]Z [facility] OTHER SURGICAL HISTORY Left 12/19/2019 Med Port POWER Regular Size OTHER SURGICAL HISTORY Left 11/07/2022 Percutaneous skeltal fixation femoral fracture TUBAL LIGATION 1992 Images from the original note were not included. Speech-Language Pathology SPEECH LANGUAGE PATHOLOGY [facility] Bedside Swallow Evaluation Patient Name: Gonzalo Deluca Evaluation Date: 07/31/2024 Date of : 1955 Admission Date: 07/30/2024 4:40 PM Age: 68 y.o. Room/Bed: [facility] B IMPRESSION: No s/s oropharyngeal dysphagia. No [...] needed. Pt would benefit from skilled acute MATH AND SCIENCE DIVISION CHAIR services Ensure patient tolerance of the recommended [...] be evaluated. Dysphagia History: No history of MATH AND SCIENCE DIVISION CHAIR services in EMR with retrospective chart review Baseline Diet: Regular diet with thin liquids Current Diet: Dietary Orders (From admission, onward) Start Ordered 07/31/24 1031 Supplement:AM Snack, PM Snack; [place] Ensure Plus Until discontinued Question Answer Comment Frequency AM Snack Frequency PM Snack Select supplement: Vanilla Ensure Plus 07/31/24 1030 07/31/24 1031 Supplement:HS Snack; [place] Ensure Plus Until discontinued Question Answer Comment Frequency HS Snack Select supplement: [place] Ensure Plus 07/31/24 1030 07/30/24 2313 Adult [...] Problem List Diagnosis Date Noted Severe malnutrition ([facility]/HCC) ([facility]) 07/31/2024 Adult failure to thrive 07/30/2024 Falls frequently 09/20/2023 Unintentional weight loss 09/20/2023 Debility 09/20/2023 PFO (patent foramen ovale) 09/20/2023 Lumbar compression fracture, closed, initial encounter ([facility]) 02/13/2023 Nondisplaced fracture of neck of left femur ([facility]) 11/06/2022 Other specified complication of vascular prosthetic devices, implants and grafts, initial encounter ([facility]) 08/06/2021 Poor venous access 12/19/2019 H/O: CVA (cerebrovascular accident) 12/14/2019 Malignant neoplasm of exocervix ([facility]) 11/07/2019 S/P hysterectomy 11/07/2019 PNA (pneumonia) 08/02/2019 Leukocytosis 04/13/2018 Shortness of breath 04/13/2018 DDD (degenerative disc disease), cervical 04/12/2018 Recurrent major depression ([facility]) 04/12/2018 Chronic back pain 04/10/2017 COPD (chronic obstructive pulmonary disease) ([facility]) 04/10/2017 Pulmonary nodule 04/10/2017 Sciatica [...] States was sent by PCP Shortness of [id number] y.o. who presents to the emergency department [...] Start: 07/31/24 Expected End: 08/07/24 Therapy Time MATH AND SCIENCE DIVISION CHAIR Individual Minutes Time In: 1518 Time Out: [...] WITH BSO AND PELVIC LYMPH; [facility] OTHER SURGICAL HISTORY Left 12/19/2019 Med Port POWER Regular Size OTHER SURGICAL HISTORY Left 11/07/2022 Percutaneous skeltal fixation femoral fracture TUBAL LIGATION 1992 Images from the original note were not included. PHYSICAL THERAPY [facility] Name/MRN: Gonzalo Deluca ([id number]) Date: 07/31/2024 Chart review completed. Patient is [...] not here- denies issues -denies assist status- MATH AND SCIENCE DIVISION CHAIR ordered per MNT protocol , will initiate [...] (interosseous) Fluid Accumulation: No significant fluid accumulation Spray Booth Operator Strength: na Nutrition Assessment: per MD-CHIEF COMPLAINT [...] lb) (08/06/24) % Weight Change (Calculated): -28.8 [place] Body Weight (lbs) (Calculated): 120 lbs [place] Body Weight (Kg) (Calculated): 55 kg % [place] Body Weight (Calculated): 74.2 % BMI (kg/m2) [...] Oral Nutrition Supplement Phillip Bradshaw RD Contact: *[phone] or secure chat documented in this encounter [facility] 08-08-2024 Plan of care note Problem: [...] RN Outcome: Not Progressing Goal: Dietary Supplements 08/08/20247 by Sadie Rodriguez RN Outcome: Progressing 08/08/2024315 by Sadie Rodriguez RN Outcome: Not Progressing Goal: Promote nutritional intake 08/08/2024446 by Sadie Rodriguez RN Outcome: Progressing 08/08/2024315 by Sadie Rodriguez RN Outcome: Not Progressing [facility] 08-08-2024 Plan of care note [...] Goal: Promote nutritional intake Outcome: Not Progressing [facility] 08-07-2024 Note Formatting of this n ote might be different from the original. Care Management Progress Note -Pt started the appeals process yesterday for denied SNF stay. We now have 72 hours for a response from her insurance. -Notified Dr. Beverly -Updated clinicals faxed to [phone] -If the appeal process is upheld, pt will have to go home with [facility]. -mergers and acquisitions manager to follow and assist as needed. Length of Stay (Days): 6 GMLOS: 5.2 [facility] 08-07-2024 Note Formatting of this n ote might be different from the original. Care Management Progress Note -Pt started the appeals process yesterday for denied SNF stay. We now have 72 hours for a response from her insurance. -Notified Dr. Beverly -Updated clinicals faxed to [phone] -If the appeal process is upheld, pt will have to go home with [facility]. -mergers and acquisitions manager to follow and assist as needed. Length of Stay (Days): 6 GMLOS: 5.2 [facility] 08-06-2024 Plan of care note [...] Problem Interventions Goal: Dietary Supplements Outcome: Progressing [facility] 08-06-2024 Note Formatting of this n ote might be different from the original. Spoke with pt earlier in the day to to determine if she wants to appeal the P2P decision denying SNF. Pt asked to go to [place]. She is in the process of trying to get to [facility] through her waiver services. She started [...] Appeals number given to pt to call: [phone]. Appeals fax number: [phone]. Pt was calling as this CM was walking out of her room. mergers and acquisitions manager to follow and assist as needed. [facility] 08-06-2024 Note Formatting of this n ote might be different from the original. Spoke with pt earlier in the day to to determine if she wants to appeal the P2P decision denying SNF. Pt asked to go to [place]. She is in the process of trying to get to [facility] through her waiver services. She started [...] Appeals number given to pt to call: [phone]. Appeals fax number: [phone]. Pt was calling as this CM was walking out of her room. mergers and acquisitions manager to follow and assist as needed. T [facility] 08-06-2024 Note Formatting of this n ote might be different from the original. Spoke with patients demetrice Schwarz, regarding dc plans, who states that they would like to ideally get patient into [facility]pc and then get patient over to [facility] under Medicaid. This will require an insurance appeal for the fpc facility. Shared this discussion with the TCC T [facility] 08-06-2024 Note Formatting of this n ote might be different from the original. Spoke with patients demetrice Schwarz, regarding dc plans, who states that they would like to ideally get patient into [facility]pc and then get patient over to [facility] under Medicaid. This will require an insurance appeal for the fpc facility. Shared this discussion with the TCC [facility] 08-06-2024 Plan of care note [...] My discharge needs are met Outcome: Progressing [facility] 08-06-2024 Plan of care note [...] integrity is maintained or improved Outcome: Progressing [facility] 08-05-2024 Plan of care note [...] Interventions Goal: Assess Nutritional Intake Outcome: Progressing [facility] 08-05-2024 Plan of care note [...] Progressing Goal: Promote nutritional intake Outcome: Progressing [facility] 08-04-2024 Note Formatting of this n ote might be different from the original. Was updated by attending that peer to peer was denied and patient would need to submit an appeal. The appeal number for [facility] is [phone] and fast appeal fax [phone] is not open on the weekend and this will need to be initiated on Tuesday. Discussed with patient and she wanted to discuss with her daughter prior to deciding to pursue appeal or discharge home with [facility]. She did state that her daughter was interested in getting her into an assistive living and that she has medicaid. Will update weekday TCC to follow.. [facility] 08-04-2024 Note Formatting of this n ote might be different from the original. Was updated by attending that peer to peer was denied and patient would need to submit an appeal. The appeal number for [facility] is [phone] and fast appeal fax [phone] is not open on the weekend and this will need to be initiated on Tuesday. Discussed with patient and she wanted to discuss with her daughter prior to deciding to pursue appeal or discharge home with [facility]. She did state that her daughter was interested in getting her into an assistive living and that she has medicaid. Will update weekday TCC to follow.. [facility] 08-04-2024 Plan of care note [...] My discharge needs are met Outcome: Progressing [facility] 08-04-2024 Note Formatting of this n ote might be different from the original. Called [facility] and spoke with REES46 is requesting peer to peer to be completed by 08/06 at 12 noon central standard time. Number for peer to peer is [phone] option 5. Will need members name, and ID number. Physicians are available 8-5 over the weekend central standard time. Did update attending with information to complete peer to peer. . [facility] 08-04-2024 Note Formatting of this n ote might be different from the original. Called [facility] and spoke with Vanu and Swrve is requesting peer to peer to be completed by 08/06 at 12 noon central standard time. Number for peer to peer is [phone] option 5. Will need members name, and ID number. Physicians are available 8-5 over the weekend central standard time. Did update attending with information to complete peer to peer. . [facility] 08-04-2024 Plan of care note [...] Progressing Goal: Promote nutritional intake Outcome: Progressing [facility] 08-03-2024 Note Formatting of this n ote might be different from the original. Tasked weekend manager mechanical to follow for pending auth to [facility]. 7000 will need to be completed at the time of discharge. mergers and acquisitions manager to follow and assist as needed. [facility] 08-03-2024 Note Formatting of this n ote might be different from the original. Tasked weekend manager mechanical to follow for pending auth to [facility]. 7000 will need to be completed at the time of discharge. mergers and acquisitions manager to follow and assist as needed. [facility] 08-03-2024 Note Formatting of this n ote might be different from the original. Sent updated notes to [facility] via [facility] per TCC request. Await review and response regarding ability to accept. TCC notified. [facility] 08-03-2024 Note Formatting of this n ote might be different from the original. Sent updated notes to [facility] via [facility] per TCC request. Await review and response regarding ability to accept. TCC notified. [facility] 08-03-2024 Note Formatting of this n ote might be different from the original. Care Management Progress Note -Discharge plan is [facility] -Tasked IMMUNOLOGY SPECIALIST extruding department supervisor to start auth. -Tasked IMMUNOLOGY SPECIALIST to send updated clinical notes to facility. -mergers and acquisitions manager to follow for auth approval and assist as needed. Length of Stay (Days): 2 GMLOS: 4.1 T [facility] 08-03-2024 Note Formatting of this n ote might be different from the original. Care Management Progress Note -Discharge plan is [place] [facility] -Tasked IMMUNOLOGY SPECIALIST extruding department supervisor to start auth. -Tasked IMMUNOLOGY SPECIALIST to send updated clinical notes to facility. -mergers and acquisitions manager to follow for auth approval and assist as needed. Length of Stay (Days): 2 GMLOS: 4.1 T [facility] 08-03-2024 Plan of care note Problem: [...] Goal: Assess Nutritional Intake Outcome: Progressing T [facility] 08-03-2024 Plan of care note Problem: [...] My discharge needs are met Outcome: Progressing [facility] 08-02-2024 Note Formatting of this n ote might be different from the original. Referral placed to [facility] via [facility] per TCC request. Await review and response regarding ability to accept. TCC notified. [facility] 08-02-2024 Note Formatting of this n ote might be different from the original. Referral placed to [facility] via [facility] per TCC request. Await review and response regarding ability to accept. TCC notified. [facility] 08-02-2024 Note Formatting of this n ote might be different from the original. Care Management Progress Note -Spoke with pt at bedside for SNF choices. -Pt would like referrals sent to [facility], [facility], [facility], and [facility], [facility]. -Tasked IMMUNOLOGY SPECIALIST to send those referrals. -Will speak with pt again once facility responses are in for facility of choice. -mergers and acquisitions manager to follow and assist as needed. Length of Stay (Days): 1 GMLOS: No GMLOS Documented -Spoke with pt and she has chosen [facility] as FOC. Informed facility. ADOD is [address] Bishop. Anticipate starting auth tomorrow. mergers and acquisitions manager to follow and assist as needed. [facility] 08-02-2024 Note Formatting of this n ote might be different from the original. Care Management Progress Note -Spoke with pt at bedside for SNF choices. -Pt would like referrals sent to [facility], [facility], [facility], and [facility], [facility]. -Tasked IMMUNOLOGY SPECIALIST to send those referrals. -Will speak with pt again once facility responses are in for facility of choice. -mergers and acquisitions manager to follow and assist as needed. Length of Stay (Days): 1 GMLOS: No GMLOS Documented -Spoke with pt and she has chosen [facility] as FOC. Informed facility. ADOD is [address] Bishop. Anticipate starting auth tomorrow. mergers and acquisitions manager to follow and assist as needed. [facility] 08-02-2024 Plan of care note Problem: [...] My discharge needs are met Outcome: Progressing [facility] 08-02-2024 Hospital Discharg e instructions Gabriela Rosa RN - 08/02/2024 7:21 AM EDT Images from the original note were not included. Continuity of Care Form Patient Name: Gonzalo Deluca : 1955 Admit date: 07/30/2024 Discharge date: 08/08/24 Code Status Order: DNR-CCA Advance Directives: N Admitting Physician: Luaren Serna MD PCP: HERMINIA CASE MD Discharging Nurse: Gabriela Rosa RN Discharging Hospital Unit/Room#: B2-254/B2-254 B Discharging Unit Emergency Contact: Extended Emergency Contact Information Primary Emergency Contact: Karishma Deluca Address: [address] [place] [address] [place] [address] [facility] Mobile Relation: Daughter Secondary Emergency Contact: Jace Deluca Mobile Relation: Son Past Surgical History: Past Surgical History: Procedure Laterality Date CYSTOSCOPY 01/12/2017 OFFICE PROCEDURE CYSTOSCOPY 02/11/2017 C&P bladder biopsy EYE SURGERY detached retina 1994 HYSTERECTOMY 11/06/2019 ABDOMINAL RADICAL HYSTERECTOMY WITH BSO AND PELVIC LYMPH; [facility] OTHER SURGICAL HISTORY Left 12/19/2019 Med [...] Dressing Independent Toileting Minimal assistance Feeding Independent Electronics Manufacturer Minimal assistance Med Delivery yes Wound Care [...] Date: 07/30/24 Discharging to Facility/ Agency Name: [facility] Address: [address] [place] [address] Fax: Dialysis Facility (if applicable) Name: Address: Dialysis Schedule: Phone: Fax: Cribbing Setter/Contract Technical Writer signature: ICIAN SECTION Name: Gonzalo Deluca Prognosis: fair Condition at Discharge: stable Rehab Potential (if transferring to Rehab): good Recommended Labs or Other Treatments After Discharge: CBC and CMP The individual is being admitted to a nursing facility directly from an [facility] or a unit of a [facility] that is not operated by or licensed by [facility] under section 5119.14 or 5160-3-15.1 5 [...] status. Recent healthcare interactions include consultations with [facility], palliative care, pulmonology, orthopedic surgery, geriatrics, and [...] respiratory failure and severe emphysema. Plan: - MATH AND SCIENCE DIVISION CHAIR evaluation: recommended regular solids with thin liquids, [...] adjustments PHYSICIAN SIGNATURE: documented in this encounter [facility] 08-02-2024 Plan of care note Problem: [...] My discharge needs are met Outcome: Progressing [facility] 08-01-2024 Note Formatting of this n [...] case she decides before then on choices. -mergers and acquisitions manager to follow and assist as needed. Length of Stay (Days): 1 GMLOS: No GMLOS Documented [facility] 08-01-2024 Note Formatting of this n [...] case she decides before then on choices. -mergers and acquisitions manager to follow and assist as needed. Length of Stay (Days): 1 GMLOS: No GMLOS Documented [facility] 08-01-2024 Consult note Formatting of th is note is different from the original. [facility], Pulmonary Medicine [address] [place] [id number] Patient - Gonzalo Deluca - 1955 Date [...] hematemesis melena hematuria Apparently not seeing any spider assembler recently Was on Dulera Spiriva and rescue inhaler compliant with the medication Not on NIV No PFT available in [facility] Medical History Past Medical History Medical History[2] [...] - Unmet Transportation Needs (06/06/2024) Received from [facility] PRAPARE - Transportation Lack of Transportation (Medical): Yes Lack of Transportation (Non-Medical): No Physical Activity: Insufficiently Active (07/31/2024) Exercise Vital Sign Days of Exercise per Week: 3 days Minutes of Exercise per Session: 20 min Stress: No Stress Concern Present (07/31/2024) [facility]ational [facility] - Occupational Stress Questionnaire Feeling of Stress : Only a little Recent Concern: Stress - Stress Concern Present (06/06/2024) Received from [facility] of Occupational Health - Occupational Stress Questionnaire Feeling of Stress : To some extent Social Connections: Socially Isolated (07/31/2024) Social Connection and Isolation Panel [NHANES] Frequency of Communication with Friends and Family: Three times a week Frequency of Social Gatherings with Friends and Family: Three times a week Attends Hinduism Services: Never Active Member of Clubs or [...] 325 ml Output -- Net 325 ml @[id number]@ Physical Exam General appearance: Awake, alert, no [...] be severe no current PFT available on [facility] 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 [...] prosthetic devices, implants and grafts, initial encounter ([facility]) Chronic back pain COPD (chronic obstructive pulmonary disease) ([facility]) DDD (degenerative disc disease), cervical Leukocytosis Malignant neoplasm of exocervix ([facility]) Recurrent major depression ([facility]) Pulmonary nodule S/P hysterectomy Sciatica Shortness of breath Supplemental oxygen dependent PNA (pneumonia) H/O: CVA (cerebrovascular accident) Former smoker Nondisplaced fracture of neck of left femur ([facility]) Lumbar compression fracture, closed, initial encounter ([facility]) Severe malnutrition (CMS/HCC) ([facility]) Falls frequently Unintentional weight loss Debility PFO (patent foramen ovale) Adult failure to thrive [2] Past Medical History: Diagnosis Date Abnormal stress test Acute exacerbation of chronic obstructive pulmonary disease ([facility]) 04/12/2018 Allergic rhinitis Arthritis Asthma Bronchitis Cancer (CMS/HCC) ([facility]) skin Cervical cancer (HCC) Chest [...] BSO AND PELVIC LYMPH; [facility] OTHER SURGICAL HISTORY Left 12/19/2019 Med [...] [8] Allergies Allergen Reactions Pollen Extract Unknown [facility] 08-01-2024 Consult note Formatting of th is note is different from the original. [facility], Pulmonary Medicine [address] [place] [id number] [id number] 1955 Date of Admission - 07/30/2024 [...] hematemesis melena hematuria Apparently not seeing any spider assembler recently Was on Dulera Spiriva and rescue [...] - Unmet Transportation Needs (06/06/2024) Received from [facility] PRAPARE - Transportation Lack of Transportation (Medical): Yes Lack of Transportation (Non-Medical): No Physical Activity: Insufficiently Active (07/31/2024) Exercise Vital Sign Days of Exercise per Week: 3 days Minutes of Exercise per Session: 20 min Stress: No Stress Concern Present (07/31/2024) [facility]ational Health - Occupational Stress Questionnaire Feeling of Stress : Only a little Recent Concern: Stress - Stress Concern Present (06/06/2024) Received from [facility] Occupational Health - Occupational Stress Questionnaire Feeling of Stress : To some extent Social Connections: Socially Isolated (07/31/2024) Social Connection and Isolation Panel [NHANES] Frequency of Communication with Friends and Family: Three times a week Frequency of Social Gatherings with Friends and Family: Three times a week Attends Hinduism Services: Never Active Member of Clubs or [...] 325 ml Output -- Net 325 ml @[id number]@ Physical Exam General appearance: Awake, alert, no [...] be severe no current PFT available on [facility] 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 [...] prosthetic devices, implants and grafts, initial encounter ([facility]) Chronic back pain COPD (chronic obstructive pulmonary disease) ([facility]) DDD (degenerative disc disease), cervical Leukocytosis Malignant neoplasm of exocervix ([facility]) Recurrent major depression ([facility]) Pulmonary nodule S/P hysterectomy Sciatica Shortness of breath Supplemental oxygen dependent PNA (pneumonia) H/O: CVA (cerebrovascular accident) Former smoker Nondisplaced fracture of neck of left femur ([facility]) Lumbar compression fracture, closed, initial encounter ([facility]) Severe malnutrition (CMS/HCC) ([facility]) Falls frequently Unintentional weight loss Debility PFO (patent foramen ovale) Adult failure to thrive [2] Past Medical History: Diagnosis Date Abnormal stress test Acute exacerbation of chronic obstructive pulmonary disease ([facility]) 04/12/2018 Allergic rhinitis Arthritis Asthma Bronchitis Cancer (CMS/HCC) ([facility]) skin Cervical cancer ([facility]) Chest pain COPD (chronic obstructive pulmonary disease) ([facility]) USE OXYGEN 3 L AT [...] not here- denies issues -denies assist status- MATH AND SCIENCE DIVISION CHAIR ordered per MNT protocol , will initiate [...] (interosseous) Fluid Accumulation: No significant fluid accumulation Spray Booth Operator Strength: na Associated Order(s): IP CONSULT TO [...] -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 -Bulk Materials Handling Plant Operator would be helpful. -BMI 15.28 -Albumin-->3.0 -Monitor. [...] with primary attending or other consultants, Electronic cut order hand of medications, tests or procedures, Obtaining and/or [...] detailed in the note above. Imelda Bernard, SYSTEMS ANALYSIS MANAGER - NAILING MACHINE OPERATOR Palliative Care Assessments: Goals of care: Continue Current Management, Live Longer, extend life as much as possible, Improve or Maintain Function/Quality of Life, Preserve Silex/Autonomy/Control, and Remain at Home Advanced Directives: DNR Functional Assessment: PPS 70% amb reduced; can't do normal work/some disease; full self care; normal or reduced intake; full LOC Prognosis: depends upon goals of care Spiritual Assessment: No spiritual distress identified Bereavement and Grief: To Be Determined PDMP/OARRS Reviewed: Yes-reviewed Social history: Marital status: Children: not addressed Living status: with daughter Work history: retired [place] status: No Hinduism sharla: None ROS: See palliative care ROS/ESAS below; All other systems were reviewed and are negative. [place] Symptom Assessment Score [place] Score Pain Score (if non-verbal, add .FLACC [...] this time Transition Note Initiated: yes Imelda Brenard, DB - [place] [1] Past Medical History: [...] BSO AND PELVIC LYMPH; [facility] OTHER SURGICAL HISTORY Left 12/19/2019 Med [...] EDT Associated Order(s): IP CONSULT TO GERIATRICS [facility] Geriatric Medicine Inpatient Consult Service Admission [...] [facility] for more in depth [...] fracture, Vitamin D deficiency, anxiety, presented to [facility] on 07/30/24 with complaints of weight [...] memory issues for a year with progression. [place] she was managing her medications ok. Daughter [...] 350 ms QTC Interval 439 ms P [place] 53 degrees QRS [place] -35 degrees T Wave [place] 43 degrees [place] Interval 137 ms CBC auto differential Collection [...] BSO AND PELVIC [facility]H; [facility] OTHER [facility]GICAL HISTORY Left 12/19/2019 Med Port [...] November 09, 2022. 11/09/22 12/09/22 Dave Whipple, PARoxetine (Paxil) 20 MG tablet Take [...] Chest pain COPD (chronic obstructive pulmonary disease) ([facility]) USE OXYGEN 3 L AT NIGHT DDD (degenerative disc disease), cervical Defect, retina, with detachment right DJD (degenerative joint disease), lumbar Emphysema lung ([facility]) Former smoker Hematuria SCHEDULED FOR THE PROCEDURE /SURGERY ON 02/11/2017 Hypokalemia Lung nodules Near syncope 09/19/2023 Osteoporosis Palpitations Pneumonia Recurrent major depression ([facility]) Sciatica Thoracic compression fracture ([facility]) Vitamin D deficiency [2] Past [...] cancer Neg Hx documented in this encounter [facility] 08-01-2024 Plan of care note Problem: [...] My discharge needs are met Outcome: Progressing [facility] 07-31-2024 Note Formatting of this n ote might be different from the original. Business Specialist following case for Discharge Needs. [facility] 07-31-2024 Note Formatting of this n ote might be different from the original. Business Specialist following case for Discharge Needs. [facility] 07-31-2024 Consult note Associated Order (s): IP CONSULT TO DIETITIAN Images from the original note were not included. Nutrition Assessment Type and Reason for Visit: Initial, Consult (poor po - needs high calorie supplement) Nutrition Recommendations/Plan: Suggest to continue regular diet to promote intake. 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 -Bulk Materials Handling Plant Operator would be helpful. -BMI 15.28 -Albumin-->3.0 -Monitor. [...] with primary attending or other consultants, Electronic cut order hand of medications, tests or procedures, Obtaining and/or [...] detailed in the note above. Imelda Bernard, SYSTEMS ANALYSIS MANAGER - NAILING MACHINE OPERATOR Palliative Care Assessments: Goals of care: Continue Current Management, Live Longer, extend life as much as possible, Improve or Maintain Function/Quality of Life, Preserve Silex/Autonomy/Control, and Remain at Home Advanced Directives: DNR [...] with daughter Work history: retired status: No Hinduism sharla: None ROS: See palliative care ROS/ESAS below; All other systems were reviewed and are negative. [place] Symptom Assessment Score [place] Score Pain Score (if non-verbal, add .FLACC [...] hospice appropriate? Eligible, but not consistent with [facility] at this time Transition Note Initiated: yes [...] BSO AND PELVIC [facility]MPH; [facility] OTHER [facility]GICAL HISTORY Left 12/19/2019 Med [...] العراقي MD at 08/01/2024 5:26 PM EDT [facility] 07-31-2024 Note Formatting of this n ote is different from the original. Images from the original note were not included. [facility] Palliative Care Transitions of Care Note Gonzalo Deluca : 1955 ADMIT DATE: 07/30/2024 DISCHARGE DATE: TBD PRIMARY CARE PHYSICIAN: HERMINIA CASE MD CODE STATUS: DNR-CCA DISCHARGE DIAGNOSES: Principal Problem: Adult failure to thrive HOSPITAL COURSE: Goals of care Gonzalo Deluca retains capacity for medical decision-making -legal surrogate decision maker is unknown, daughter listed in emergency contacts-->Karishma Starkssumeetbenji ( ) -Would encourage completion of HCPOA [...] short of breath when trying to eat. -Bulk Materials Handling Plant Operator would be helpful. -BMI 15.28 -Albumin-->3.0 -Monitor. [...] Skilled Rehab Facility FACILITY/HOME CARE AGENCY NAME: [facility] Follow up with [facility] on office to call patient. [...] SIGNED: DB Aggarwal CNP 08/03/2024, 10:20 AM [facility] 07-31-2024 Note Formatting of this n ote is different from the original. Images from the original note were not included. [facility] Palliative Care Transitions of [...] short of breath when trying to eat. -Bulk Materials Handling Plant Operator would be helpful. -BMI 15.28 -Albumin-->3.0 -Monitor. [...] Skilled Rehab Facility FACILITY/HOME CARE AGENCY NAME: [facility] Follow up with [facility] on office to call patient. [...] SIGNED: DB Aggarwal CNP 08/03/2024, 10:20 AM [facility] 07-31-2024 Note Formatting of this n [...] scheduled appointment 93% on 5L last read [facility] 07-31-2024 Note Formatting of this n [...] scheduled appointment 93% on 5L last read [facility] 07-31-2024 Consult note Associated Order (s): IP CONSULT TO GERIATRICS [facility] Geriatric Medicine Inpatient Consult Service Admission [...] at [facility] for more in depth [...] fracture, Vitamin D deficiency, anxiety, presented to [facility] on 07/30/24 with complaints of weight [...] memory issues for a year with progression. [place] she was managing her medications ok. Daughter [...] 350 ms QTC Interval 439 ms P [place] 53 degrees QRS [place] -35 degrees T Wave [place] 43 degrees DE Interval 137 ms CBC auto differential Collection [...] mg, 4 mg, IntraVENous, q6h PRN, Lauren eSrna MD oxyCODONE (Roxicodone) immediate release tablet 5 [...] Bronchitis Cancer (CMS/HCC) (HCC) skin Cervical cancer ([facility]) Chest pain COPD (chronic obstructive pulmonary disease) ([facility]) USE OXYGEN 3 L AT NIGHT DDD (degenerative disc disease), cervical Defect, retina, with detachment right DJD (degenerative joint disease), lumbar Emphysema lung ([facility]) Former smoker Hematuria SCHEDULED FOR THE PROCEDURE /SURGERY ON 02/11/2017 Hypokalemia Lung nodules Near syncope 09/19/2023 Osteoporosis Palpitations Pneumonia Recurrent major depression ([facility]) Sciatica Thoracic compression fracture ([facility]) Vitamin D deficiency [4] Past Surgical History: Procedure Laterality Date CYSTOSCOPY 01/12/2017 OFFICE PROCEDURE CYSTOSCOPY 02/11/2017 C&P bladder biopsy EYE SURGERY detached retina 1994 HYSTERECTOMY 11/06/2019 ABDOMINAL RADICAL HYSTERECTOMY WITH BSO AND PELVIC LYMPH; [facility] OTHER SURGICAL HISTORY Left 12/19/2019 Med Port POWER Regular Size OTHER SURGICAL HISTORY Left 11/07/2022 Percutaneous skeltal fixation femoral fracture TUBAL LIGATION 1992 [5] Family History Problem Relation Name Age of Onset Colon cancer Neg Hx Ovarian cancer Neg Hx Cancer Mother breast- to liver Cancer Sister breast Cancer Father lung to brain No Known Problems Brother Uterine cancer Neg Hx [facility] 07-31-2024 Consult note Associated Order [...] tablet 400 mg daily. Yes Historical Provider, MD montelukast (Singulair) 10 MG tablet Take 10 [...] BSO AND PELVIC LYMPH; [facility] OTHER SURGICAL HISTORY Left 12/19/2019 Med Port POWER Regular Size OTHER SURGICAL HISTORY Left 11/07/2022 Percutaneous skeltal fixation femoral fracture TUBAL LIGATION 1992 [3] Family History Problem Relation Name Age of Onset Colon cancer Neg Hx Ovarian cancer Neg Hx Cancer Mother breast- to liver Cancer Sister breast Cancer Father lung to brain No Known Problems Brother Uterine cancer Neg Hx [facility] 07-30-2024 History and physical note History and Physical [facility] Gonzalo Deluca : 1955 AGE 68 [...] pcp office She reports she fell in fe, she had left [...] Chest pain COPD (chronic obstructive pulmonary disease) ([facility]) USE OXYGEN 3 L AT NIGHT DDD (degenerative disc disease), cervical Defect, retina, with detachment right DJD (degenerative joint disease), lumbar Emphysema lung (HCC) Former smoker Hematuria SCHEDULED FOR THE PROCEDURE /SURGERY ON 02/11/2017 Hypokalemia Lung nodules Near syncope 09/19/2023 Osteoporosis Palpitations Pneumonia Recurrent major depression (HCC) Sciatica Thoracic compression fracture ([facility]) Vitamin D deficiency Past Surgical [...] 07/30/2024 350 QTC Interval 07/30/2024 439 P [place] 07/30/2024 53 QRS [place] 07/30/2024 -35 T Wave [place] 07/30/2024 43 DE Interval 07/30/2024 137 Auto WBC 07/30/2024 8.9 [...] QT Interval 350 QTC Interval 439 P [place] 53 QRS [place] -35 T Wave [place] 43 DE Interval 137 Impression Sinus rhythm Left axis [...] placed in a splint. She has seen [facility] orthopedics in the past they will be [...] Time spent on admission 07/30/2024 Gonzalo Deluca [id number] Any scheduled follow up appointments Future Appointments Date Time Provider Department Center 09/04/2024 2:30 PM [facility] None Extended Emergency Contact Information Primary Emergency Contact: Karishma Deluca Address: [address] [place] [address] [place] [id number] [facility] Mobile Relation: Daughter Secondary Emergency Contact: Jace Deluca Mobile Relation: Son Portions of this note may be electronically transcribed. Please forward a copy of this H&P to the primary care physician. [facility] [employer] Work Phone: 07-30-2024 Note [employer] [facility] 07-30-2024 History and physical note History and Physical [facility] Gonzalo Deluca : 1955 AGE 68 [...] Allergic rhinitis Arthritis Asthma Bronchitis Cancer (CMS/HCC) ([facility]) skin Cervical cancer ([facility]) Chest pain COPD (chronic obstructive pulmonary disease) ([facility]) USE OXYGEN 3 L AT NIGHT DDD (degenerative disc disease), cervical Defect, retina, with detachment right DJD (degenerative joint disease), lumbar Emphysema lung ([facility]) Former smoker Hematuria SCHEDULED FOR THE PROCEDURE /SURGERY ON 02/11/2017 Hypokalemia Lung nodules Near syncope 09/19/2023 Osteoporosis Palpitations Pneumonia Recurrent major depression ([facility]) Sciatica Thoracic compression fracture ([facility]) Vitamin D deficiency Past Surgical History: Procedure Laterality Date CYSTOSCOPY 01/12/2017 OFFICE PROCEDURE CYSTOSCOPY 02/11/2017 C&P bladder biopsy EYE SURGERY detached retina 1994 HYSTERECTOMY 11/06/2019 ABDOMINAL RADICAL HYSTERECTOMY WITH BSO AND PELVIC LYMPH; [facility] OTHER SURGICAL HISTORY Left 12/19/2019 Med [...] 07/30/2024 350 QTC Interval 07/30/2024 439 P [place] 07/30/2024 53 QRS [place] 07/30/2024 -35 T Wave [place] 07/30/2024 43 DE Interval 07/30/2024 137 Auto WBC 07/30/2024 8.9 [...] QT Interval 350 QTC Interval 439 P [place] 53 QRS [place] -35 T Wave [place] 43 DE Interval 137 Impression Sinus rhythm Left axis [...] placed in a splint. She has seen [facility] orthopedics in the past they will be [...] Time spent on admission 07/30/2024 Gonzalo Deluca [id number] Any scheduled follow up appointments Future Appointments Date Time Provider Department Center 09/04/2024 2:30 PM [facility] 1 [facility] None Extended Emergency Contact Information Primary Emergency Contact: Karishma Deluca Address: [address] [place] [address] [place] [address] [facility] Mobile Relation: Daughter Secondary Emergency Contact: RaudelsumeetJace leblanc Mobile Relation: Son Portions of this note may be electronically transcribed. Please forward a copy of this H&P to the primary care physician. documented in this encounter [facility] 07-30-2024 Emergency department Note Associated Order(s): [...] Acute exacerbation of chronic obstructive pulmonary disease ([facility]) 04/12/2018 Allergic rhinitis Arthritis Asthma Bronchitis Cancer ([facility]/HCC) ([facility]) skin Cervical cancer ([facility]) Chest pain COPD (chronic obstructive pulmonary disease) ([facility]) USE OXYGEN 3 L AT NIGHT DDD (degenerative disc disease), cervical Defect, retina, with detachment right DJD (degenerative joint disease), lumbar Emphysema lung ([facility]) Former smoker Hematuria SCHEDULED FOR THE PROCEDURE /SURGERY ON 02/11/2017 Hypokalemia Lung nodules Near syncope 09/19/2023 Osteoporosis Palpitations Pneumonia Recurrent major depression ([facility]) Sciatica Thoracic compression fracture ([facility]) Vitamin D deficiency SURGICAL HISTORY [...] Resource Strain: Low Risk (06/06/2024) Received from [facility] Overall Financial Resource Strain (CARDIA) Difficulty of Paying Living Expenses: Not very hard Food Insecurity: No Food Insecurity (06/06/2024) Received from [facility] Hunger Vital Sign Worried About Running Out of Food in the Last Year: Never true Ran Out of Food in the Last Year: Never true Transportation Needs: Unmet Transportation Needs (06/06/2024) Received from [facility] PRAPARE - Transportation Lack of Transportation (Medical): Yes Lack of Transportation (Non-Medical): No Physical Activity: Inactive (06/06/2024) Received from [facility] Exercise Vital Sign Days of Exercise per Week: 0 days Minutes of Exercise per Session: 0 min Stress: Stress Concern Present (06/06/2024) Received from [facility] Lao Carpenter of Occupational Health - Occupational Stress Questionnaire Feeling of Stress : To some extent Social Connections: Unknown (06/06/2024) Received from [facility] Social Connection and Isolation Panel [NHANES] Frequency of Communication with Friends and Family: Twice a week Frequency of Social Gatherings with Friends and Family: Never Attends Hinduism Services: Never Active Member of Clubs or [...] swelling Alternatives discussed: Delayed treatment and referral Dickey protocol: Patient identity confirmed: Verbally with patient [...] DO 07/30/24 215 documented in this encounter [facility] 07-30-2024 Physician Emergency department Note Associated [...] Chest pain COPD (chronic obstructive pulmonary disease) ([facility]) USE OXYGEN 3 L AT NIGHT DDD (degenerative disc disease), cervical Defect, retina, with detachment right DJD (degenerative joint disease), lumbar Emphysema lung ([facility]) Former smoker Hematuria SCHEDULED FOR [...] Resource Strain: Low Risk (06/06/2024) Received from [facility] Overall Financial Resource Strain (CARDIA) Difficulty of Paying Living Expenses: Not very hard Food Insecurity: No Food Insecurity (06/06/2024) Received from [facility] Hunger Vital Sign Worried About Running Out of Food in the Last Year: Never true Ran Out of Food in the Last Year: Never true Transportation Needs: Unmet Transportation Needs (06/06/2024) Received from [facility] PRAPARE - Transportation Lack of Transportation (Medical): Yes Lack of Transportation (Non-Medical): No Physical Activity: Inactive (06/06/2024) Received from [facility] Exercise Vital Sign Days of Exercise per Week: 0 days Minutes of Exercise per Session: 0 min Stress: Stress Concern Present (06/06/2024) Received from [facility] Lao Carpenter of Occupational Health - Occupational Stress Questionnaire Feeling of Stress : To some extent Social Connections: Unknown (06/06/2024) Received from [facility] Social Connection and Isolation Panel [NHANES] Frequency of Communication with Friends and Family: Twice a week Frequency of Social Gatherings with Friends and Family: Never Attends Hinduism Services: Never Active Member of Clubs or [...] swelling Alternatives discussed: Delayed treatment and referral Dickey protocol: Patient identity confirmed: Verbally with patient [...] Medicine Provider Luis E Keating DO 07/30/242152 [employer] 07-30-2024 Note HNO ID: [id number] Author: HERIMNIA CASE MD Service: ? Author Type: Physician Type: Progress Notes Filed: 07/30/2024 16:33 Note Text: 07/30/2024 Recording using ambient ANTs Software software for draft documentation of the visit was discussed with the patient/authorized agency sales representative; all questions welcomed and answered. Patient/authorized agency sales representative agreed to proceed HPI: Gonzalo [...] skin lesions. HEAD (more content not included)... [facility] 07-30-2024 History of Presen t illness Narrative 07/30/2024 Recording using Pharmacy Development software for draft documentation of the visit was discussed with the patient/authorized agency sales representative; all questions welcomed and answered. Patient/authorized agency sales representative agreed to proceed HPI: Gonzalo [...] cardiac events. - Patient to go to [facility] for stabilization of oxygen levels and [...] Herminia Case MD documented in this encounter [facility] 07-23-2024 Telephone encounter Note Prescription Refill [...] Shay LPN July 23, 2024 11:22 AM [facility] 07-23-2024 Miscellaneous Notes Prescription Refill Information [...] 2024 11:22 AM documented in this encounter [facility] 07-02-2024 Telephone encounter Note Request completed and faxed. [facility] 07-02-2024 Miscellaneous Notes Request completed and faxed. Orders signed and in outbox. Please fax. Thank you, Leona Castañeda APRN.NAILING MACHINE OPERATOR Type of letter/form/fax request - Assisted living orders Form received from [facility] on 06/29/24 floor and placed on MD desk () for completion. Completed form needs to be faxed to [phone]. Route to [place] when form completed for processing documented in this encounter [facility] 07-02-2024 Telephone encounter Note Orders signed and in outbox. Please fax. Thank you, Leona Castañeda APRN.NAILING MACHINE OPERATOR [facility] Work Phone: 06-30-2024 Telephone encounter Note Type of letter/form/fax request - Assisted living orders Form received from [facility] on 06/29/24 floor and placed on MD desk () for completion. Completed form needs to be faxed to [phone]. Route to [place] when form completed for processing [facility] 06-26-2024 Telephone encounter Note Prescription Refill [...] Shay LPN June 26, 2024 9:32 AM [facility] 06-26-2024 Miscellaneous Notes Prescription Refill Information [...] 2024 9:32 AM documented in this encounter [facility] 06-26-2024 Telephone encounter Note Prescription Refill [...] Patel MA June 26, 2024 8:38 AM [facility] 06-26-2024 Miscellaneous Notes Prescription Refill Information [...] 2024 8:38 AM documented in this encounter [facility] 06-07-2024 Telephone encounter Note Herminia Case MD Thank you for the referral. Our first available date for a therapy start of care is 06/11/24. Please let us know if this is acceptable for you and the patient. Thank you , Maddi Valero LPN June 07, 2024 5:05 PM [facility] Work Phone: 06-07-2024 Miscellaneous Notes Herminia Case MD Thank you for the referral. Our first available date for a therapy start of care is 06/11/24. Please let us know if this is acceptable for you and the patient. Thank you , Maddi Valero LPN June 07, 2024 5:05 PM documented in this encounter [facility] 06-06-2024 Telephone encounter Note Herminia Case MD Thank you for the referral for Gonzalo Deluca to receive home care services through [facility]. At this time, the office [...] homebound - what is the diagnosis that [facility] is seeing the patient for. Thank you, Erna Diaz LPN [facility] Work Phone: 06-06-2024 Miscellaneous Notes Herminia Case MD Thank you for the referral for Gonzalo Deluca to receive home care services through [facility]. At this time, the office [...] homebound - what is the diagnosis that [facility] is seeing the patient for. Thank you, Erna Diaz LPN documented in this encounter [facility] 06-06-2024 Note HNO ID: [id number] Author: HERMINIA CASE MD Service: ? Author Type: Physician Type: Progress Notes Filed: 06/07/2024 16:23 Note Text: VIRTUAL VISIT PROGRESS NOTE This is a virtual visit using Isagenom Video Visit. It required patient-provider interaction for the medical decision making as documented below. I have communicated my name and active licensure. The patient's identity and physical location were verified at the time of this visit. Either the patient or their legal agency sales representative has been informed of the [...] major depressive di (more content not included)... [facility] 06-06-2024 History of Presen t illness Narrative VIRTUAL VISIT PROGRESS NOTE This is a virtual visit using Is[employer] Video Visit. It required patient-provider interaction for the medical decision making as documented below. I have communicated my name and active licensure. The patient's identity and physical location were verified at the time of this visit. Either the patient or their legal agency sales representative has been informed of the [...] Diagnosis Date COPD (chronic obstructive pulmonary disease) ([facility]) DDD (degenerative disc disease), lumbar [...] visit: Panlobular emphysema (HCC) - CONSULT TO [facility] HOME - pt cannot drive, has severe anxiety when leaving the house due to oxygen requirements, falls frequently, short of breath with exertion. 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 Moderate episode of recurrent major depressive disorder (HCC) - increase to 30 mg, mirtazapine (REMERON) 15 mg tablet; Take 2 tablet by mouth daily at bedtime. Chronic respiratory failure with hypoxia (HCC) - CONSULT TO [facility] HOME There are no Patient Instructions on file for this visit. Herminia Case MD documented in this encounter [facility] 05-26-2024 Telephone encounter Note Prescription Refill [...] Shay LPN May 26, 2024 12:10 PM [facility] 05-26-2024 Miscellaneous Notes Prescription Refill Information [...] 2024 12:10 PM documented in this encounter [facility] 05-22-2024 Note Patient Outreach (FA MDNA) GONZALO DELUCA ([id number]) 1955 F Date Time Provider Department 05/22/24 HERMINIA CASE During your visit today, we recorded the following information about you: Allergies As of Date: 05/22/2024 Noted Allergy Reaction SEASONAL ALLERGIES 08/16/2017 5 - Intolerance Date Reviewed: 12/30/2023 Reviewed by: Joaquina Martinez APRN.NAILING MACHINE OPERATOR - Fully Assessed Visit Diagnosis:Encounter for screening mammogram for breast cancer [Z12.31] Order(s):[facility]CRE[facility] [[id number]] Order #: [id number] FUTURE Prescriptions as of 06/22/2024 - mirtazapine [...] [Z99.81] 04/10/2017 Diagnosed: 03/11/2023 Encounter Status:Closed by KD PRODUSER on 06/22/24 [facility] 05-09-2024 Telephone encounter Note Pt has refills on current prescription that should be available until end may. ThanksMelva PA-C [facility] 05-09-2024 Miscellaneous Notes Pt has refills on current prescription that should be available until end may. Thanks, Melva Juárez PA-C Prescription Refill Information The [...] 2024 9:26 AM documented in this encounter [facility] 05-09-2024 Telephone encounter Note Prescription Refill [...] Weathers MA May 09, 2024 9:26 AM [facility] 05-02-2024 Note HNO ID: [id number] Author: ?, ?, ? Service: ? Author Type: ? Type: Progress Notes Filed: 05/02/2024 18:24 Note Text: Pt got scheduled [facility] 05-02-2024 Note HNO ID: [id number] Author: ?, ?, ? Service: ? Author Type: ? Type: Progress Notes Filed: 05/02/2024 12:10 Note Text: Mc sent [facility] 05-02-2024 History of Presen t illness Narrative Mc sent VIRTUAL VISIT PROGRESS NOTE This is a virtual visit using Isagenom Video Visit. It required patient-provider interaction for the medical decision making as documented below. I have communicated my name and active licensure. The patient's identity and physical location were verified at the time of this visit. Either the patient or their legal agency sales representative has been informed of the [...] fall a few days ago, went to [place] [facility] Doesn't recall how it happened, fell [...] Herminia Case MD documented in this encounter [facility] 05-02-2024 Note HNO ID: [id number] Author: HERMINIA CASE MD Service: ? Author Type: Physician Type: Progress Notes Filed: 05/02/2024 11:35 Note Text: VIRTUAL VISIT PROGRESS NOTE This is a virtual visit using [employer] Zoom Video Visit. It required patient-provider interaction for the medical decision making as documented below. I have communicated my name and active licensure. The patient's identity and physical location were verified at the time of this visit. Either the patient or their legal agency sales representative has been informed of the [...] fall a few days ago, went to [place] [facility] Doesn't recall how it happened, fell [...] OF SYSTEMS: GENERAL: (more content not included)... [facility] 05-01-2024 Telephone encounter Note Mc sent [facility] 05-01-2024 Miscellaneous Notes Mc sent Needs [...] 2024 6:08 PM documented in this encounter [facility] 05-01-2024 Telephone encounter Note Needs appointment. [facility] 04-30-2024 Telephone encounter Note Prescription Refill [...] Shay LPN April 30, 2024 6:08 PM [facility] 04-27-2024 Emergency department Note Patient: Gonzalo [...] dictating provider for clarification.) Flako Altamirano MD [employer] CHIEF COMPLAINT Chief Complaint Patient [...] Bronchitis Cancer (CMS/HCC) (HCC) skin Cervical cancer ([facility]) Chest pain COPD (chronic obstructive pulmonary disease) ([facility]) USE OXYGEN 3 L AT NIGHT DDD (degenerative disc disease), cervical Defect, retina, with detachment right DJD (degenerative joint disease), lumbar Emphysema lung ([facility]) Former smoker Hematuria SCHEDULED FOR THE PROCEDURE /SURGERY ON 02/11/2017 Hypokalemia Lung nodules Near syncope 09/19/2023 Osteoporosis Palpitations Pneumonia Recurrent major depression ([facility]) Sciatica Thoracic compression fracture ([facility]) Vitamin D deficiency SURGICAL HISTORY Past Surgical History: Procedure Laterality Date CYSTOSCOPY 01/12/2017 OFFICE PROCEDURE CYSTOSCOPY 02/11/2017 C&P bladder biopsy EYE SURGERY detached retina 1994 HYSTERECTOMY 11/06/2019 ABDOMINAL RADICAL HYSTERECTOMY WITH BSO AND PELVIC LYMPH; [facility] OTHER SURGICAL HISTORY Left 12/19/2019 Med [...] min Stress: No Stress Concern Present (09/19/2023) Lao Carpenter of Occupational Health - Occupational Stress Questionnaire Feeling of Stress : Only a little Social Connections: Socially Isolated (09/19/2023) Social Connection and Isolation Panel [NHANES] Frequency of Communication with Friends and Family: Three times a week Frequency of Social Gatherings with Friends and Family: Three times a week Attends Hinduism Services: Never Active Member of Clubs or [...] Homeless in the Last Year: No SCREENINGS Lynden Coma Scale Best Eye Response: Spontaneous Best [...] mL (1,000 mL IntraVENous New Bag 04/27/24 6744) REVAL: MDM On reassessment I talked to [...] AM PATIENT REFERRED TO: Herminia Case MD [address] [place], [place] [id number] DISCHARGE MEDICATIONS: New Prescriptions No medications on [...] pain 2ndary fall documented in this encounter [facility] 04-27-2024 Emergency department Triage note Per ems, fall on carpeted floor. _ LOC but pt states she was dizzy and weak prior to fall. C/o L elbow and nose pain 2ndary fall [facility] 04-27-2024 Physician Emergency department Note Patient: [...] dictating provider for clarification.) Flako Altamirano MD [employer] [facility] CHIEF COMPLAINT Chief Complaint Patient presents [...] Chest pain COPD (chronic obstructive pulmonary disease) ([facility]) USE OXYGEN 3 L AT NIGHT DDD (degenerative disc disease), cervical Defect, retina, with detachment right DJD (degenerative joint disease), lumbar Emphysema lung ([facility]) Former smoker Hematuria SCHEDULED FOR THE PROCEDURE /SURGERY ON 02/11/2017 Hypokalemia Lung nodules Near syncope 09/19/2023 Osteoporosis Palpitations Pneumonia Recurrent major depression ([facility]) Sciatica Thoracic compression fracture ([facility]) Vitamin D deficiency SURGICAL HISTORY Past Surgical History: Procedure Laterality Date CYSTOSCOPY 01/12/2017 OFFICE PROCEDURE CYSTOSCOPY 02/11/2017 C&P bladder biopsy EYE SURGERY detached retina 1994 HYSTERECTOMY 11/06/2019 ABDOMINAL RADICAL HYSTERECTOMY WITH BSO AND PELVIC LYMPH; [facility] OTHER SURGICAL HISTORY Left 12/19/2019 Med [...] min Stress: No Stress Concern Present (09/19/2023) Lao Carpenter of Occupational Health - Occupational Stress Questionnaire Feeling of Stress : Only a little Social Connections: Socially Isolated (09/19/2023) Social Connection and Isolation Panel [NHANES] Frequency of Communication with Friends and Family: Three times a week Frequency of Social Gatherings with Friends and Family: Three times a week Attends Hinduism Services: Never Active Member of Clubs or [...] Homeless in the Last Year: No SCREENINGS Lynden Coma Scale Best Eye Response: Spontaneous Best Verbal Response: Oriented Best Motor Response: Follows commands Lynden Coma Scale Score: 15 PHYSICAL EXAM ED [...] mL (1,000 mL IntraVENous New Bag 04/27/24 0058) REVAL: MDM On reassessment I talked to [...] AM PATIENT REFERRED TO: Herminia Case MD [address] [place] [id number] DISCHARGE MEDICATIONS: New Prescriptions No medications on [...] Flako Altamirano MD 04/28/24 0112 [facility] 04-06-2024 Telephone encounter Note Prescription Refill Information [...] Weathers MA April 06, 2024 9:03 AM [facility] 04-06-2024 Miscellaneous Notes Prescription Refill Information The [...] 2024 9:03 AM documented in this encounter [facility] 04-02-2024 Telephone encounter Note Pt has three refills available at the pharmacy. Melva Juárez PA-C [facility] 04-02-2024 Miscellaneous Notes Pt has three refills available at the pharmacy. Melva Juárez PA-C Pharmacy verified in [facility] Patient has been identified by [...] Alejandra Reno MA documented in this encounter [facility] 04-02-2024 Telephone encounter Note Pharmacy verified in [facility] Patient has been identified by [...] applicable Please advise. Maria Alejandra Reno MA [facility] 04-02-2024 Miscellaneous Notes Pharmacy verified in [facility] Patient has been identified by [...] oz) Not applicable Please advise. Maria Alejandra Rneo MA documented in this encounter [facility] 04-02-2024 Telephone encounter Note Pharmacy verified in [facility] Patient has been identified by [...] applicable Please advise. Maria Alejandra Reno MA [facility] 03-20-2024 Telephone encounter Note Prescription Refill Information [...] Baltazar MA March 20, 2024 12:08 PM [facility] 03-20-2024 Miscellaneous Notes Prescription Refill Information The [...] 2024 12:08 PM documented in this encounter [facility] 03-12-2024 Telephone encounter Note Pharmacy verified in [facility]. Patient has been identified by [...] Not applicable Please advise. Rocio Westfall MA [facility] 03-12-2024 Miscellaneous Notes Pharmacy verified in [facility]. Patient has been identified by [...] Rocio Westfall MA documented in this encounter [facility] 03-09-2024 Telephone encounter Note Prescription Refill [...] Patel MA March 09, 2024 4:57 PM [facility] 03-09-2024 Miscellaneous Notes Prescription Refill Information [...] 2024 4:57 PM documented in this encounter [facility] 03-05-2024 Telephone encounter Note Patient aware, will buy over the counter. Whit Shay LPN [facility] 03-05-2024 Miscellaneous Notes Patient aware, will buy over the counter. Whit Shay LPN LM for patient to call the office. Whit Shay LPN Let patient know she can try looking for this available over the counter. Looks like she uses the diclofenac gel. Per [facility], Diclofenac Sodium is on backorder unavailable. Please advise. Whit Shay LPN documented in this encounter [facility] 03-05-2024 Telephone encounter Note Pharmacy verified in [facility] Patient has been identified by [...] 7.9 oz) Please advise. Silvia Trejo MA [facility] 03-05-2024 Miscellaneous Notes Pharmacy verified in [facility] Patient has been identified by [...] Silvia Trejo MA documented in this encounter [facility] 03-02-2024 Telephone encounter Note LM for patient to call the office. Whit Shay LPN [facility] 03-01-2024 Telephone encounter Note Let patient know she can try looking for this available over the counter. Looks like she uses the diclofenac gel. [facility] 03-01-2024 Telephone encounter Note Per [facility], Diclofenac Sodium is on backorder unavailable. Please advise. Whit Shay LPN [facility] 02-07-2024 Telephone encounter Note Pharmacy verified in [facility] Patient has been identified by [...] (132 lb 7.9 oz) Please advise. Silvia Terjo MA [facility] 02-07-2024 Miscellaneous Notes Pharmacy verified in Epic [...] Silvia Trejo MA documented in this encounter [facility] 02-07-2024 Telephone encounter Note Prescription Refill [...] Prasad MA February 07, 2024 11:36 AM [facility] 02-07-2024 Miscellaneous Notes Prescription Refill Information [...] 2024 11:36 AM documented in this encounter [facility] 01-11-2024 Telephone encounter Note This was refilled earlier today. Melva Juárez PA-C [facility] 01-11-2024 Miscellaneous Notes This was refilled [...] 2024 2:10 PM documented in this encounter [facility] 01-11-2024 Telephone encounter Note Prescription Refill [...] Baltazar MA January 11, 2024 2:10 PM [facility] 01-10-2024 Telephone encounter Note Pharmacy verified in [place]. Patient has been identified by name and [...] Not applicable Please advise. Rocio Westfall MA [facility] 01-10-2024 Miscellaneous Notes Pharmacy verified in [place]. Patient has been identified by name and [...] Rocio Westfall MA documented in this encounter [facility] 01-09-2024 Telephone encounter Note Pharmacy verified in [place]. Patient has been identified by name and [...] Not applicable Please advise. Rocio Westfall MA [facility] 01-09-2024 Miscellaneous Notes Pharmacy verified in [place]. Patient has been identified by name and [...] Rocio Westfall MA documented in this encounter [facility] 01-09-2024 Telephone encounter Note Prescription Refill [...] Shay LPN January 09, 2024 2:38 PM [facility] 01-09-2024 Miscellaneous Notes Prescription Refill Information [...] 2024 2:38 PM documented in this encounter [facility] 01-09-2024 Telephone encounter Note Please review and advise. [facility] 01-09-2024 Miscellaneous Notes Please review and advise. documented in this encounter [facility] 01-09-2024 Telephone encounter Note Prescription Refill [...] Shay LPN January 09, 2024 10:42 AM [facility] 01-09-2024 Miscellaneous Notes Prescription Refill Information [...] 2024 10:42 AM documented in this encounter [facility] 12-30-2023 Note HNO ID: [id number] Author: JOAQUINA MARTINEZ APRN.NAILING MACHINE OPERATOR Service: ? Author Type: Nurse Practitioner Type: Progress Notes Filed: 12/30/2023 13:47 Note Text: VIRTUAL VISIT PROGRESS NOTE This is a virtual visit using [employer] Video Visit. It required patient-provider interaction for the medical decision making as documented below. I have communicated my name and active licensure. The patient's identity and physical location were verified at the time of this visit. Either the patient or their legal agency sales representative has been informed of the [...] on file for this visit. Joaquina Rao APRN.[facility] 12-30-2023 History of Presen t illness Narrative VIRTUAL VISIT PROGRESS NOTE This is a virtual visit using [employer] Video Visit. It required patient-provider interaction for the medical decision making as documented below. I have communicated my name and active licensure. The patient's identity and physical location were verified at the time of this visit. Either the patient or their legal agency sales representative has been informed of the [...] on file for this visit. Joaquina Rao APRN.NAILING MACHINE OPERATOR documented in this encounter [facility] 12-27-2023 Telephone encounter Note Request completed and faxed. [facility] 12-27-2023 Miscellaneous Notes Request completed and faxed. Type of letter/form/fax request - Home Health Care Orders Form received from [facility] on 12/26/23 floor and placed on MD desk () for completion. Completed form needs to be faxed to [phone]. Route to [place] when form completed for processing documented in this encounter [facility] 12-27-2023 Telephone encounter Note Type of letter/form/fax request - Home Health Care Orders Form received from [facility] on 12/26/23 floor and placed on desk () for completion. Completed form needs to be faxed to [phone]. Route to [place] when form completed for processing [facility] 12-27-2023 Telephone encounter Note Prescription Refill [...] Contreras LPN December 27, 2023 10:41 AM [facility] 12-27-2023 Miscellaneous Notes Prescription Refill Information [...] 2023 10:41 AM documented in this encounter [facility] 12-14-2023 Telephone encounter Note Prescription Refill [...] Shay LPN December 14, 2023 9:21 AM [facility] 12-14-2023 Miscellaneous Notes Prescription Refill Information [...] 2023 9:21 AM documented in this encounter [facility] 12-14-2023 Telephone encounter Note Request completed and faxed. [facility] 12-14-2023 Miscellaneous Notes Request completed and faxed. Done. Type of letter/form/fax request - Home Health Care Orders Form received from [facility] on 12/12/23 floor and placed on MD desk () for completion. Completed form needs to be faxed to [phone]. Route to [place] when form completed for processing documented in this encounter [facility] 12-13-2023 Telephone encounter Note Done. [facility] 12-13-2023 Telephone encounter Note Type of letter/form/fax request - Home Health Care Orders Form received from [facility] on 12/12/23 floor and placed on MD desk () for completion. Completed form needs to be faxed to [phone]. Route to [place] when form completed for processing [facility] 12-08-2023 Telephone encounter Note Home care Certification Form 485 received from [facility]. For cert dates 11/25/23 to 01/23/24 that were signed on 12/06/23. Recertification Patient's home health 485 form / care plan for stated certification period reviewed and signed. Relevant medical records were reviewed. No changes were indicated [facility] 12-08-2023 Miscellaneous Notes Home care Certification Form 485 received from [facility]. For cert dates 11/25/23 to 01/23/24 that were signed on 12/06/23. Recertification Patient's home health 485 form / care plan for stated certification period reviewed and signed. Relevant medical records were reviewed. No changes were indicated documented in this encounter [facility] 12-06-2023 Telephone encounter Note Request completed and faxed. [facility] 12-06-2023 Miscellaneous Notes Request completed and faxed. Done. Type of letter/form/fax request - Home Health Care Orders Plan of Care Certification Period-11/25/23 to 01/23/24 Form received from [facility] on 12/01/23 floor and placed on MD desk () for completion. Completed form needs to be faxed to [phone]. Route to [place] when form completed for processing documented in this encounter [facility] 12-06-2023 Telephone encounter Note Done. [facility] 12-06-2023 Telephone encounter Note Type of letter/form/fax request - Home Health Care Orders Plan of Care Certification Period-11/25/23 to 01/23/24 Form received from [facility] on 12/01/23 floor and placed on MD desk () for completion. Completed form needs to be faxed to [phone]. Route to [place] when form completed for processing [facility] 11-28-2023 Telephone encounter Note Pharmacy verified in [facility] Patient has been identified by [...] 7.9 oz) Please advise. Silvia Trejo MA [facility] 11-28-2023 Miscellaneous Notes Pharmacy verified in [facility] Patient has been identified by [...] Silvia Trejo MA documented in this encounter [facility] 11-14-2023 Telephone encounter Note Pharmacy verified in [place]. Patient has been identified by name and [...] Not applicable Please advise. Rocio Westfall MA [facility] 11-14-2023 Miscellaneous Notes Pharmacy verified in [place]. Patient has been identified by name and [...] Rocio Westfall MA documented in this encounter [facility] 11-14-2023 Telephone encounter Note Request completed and faxed. [facility] 11-14-2023 Miscellaneous Notes Request completed and faxed. Done. Type of letter/form/fax request - Home Health Care Orders Form received from [facility] on 11/13/23 floor and placed on MD desk () for completion. Completed form needs to be faxed to . Route to [place] when form completed for processing documented in this encounter [facility] 11-14-2023 Telephone encounter Note Done. [facility] 11-14-2023 Telephone encounter Note Type of letter/form/fax request - Home Health Care Orders Form received from [facility] on 11/13/23 floor and placed on MD desk () for completion. Completed form needs to be faxed to . Route to [place] when form completed for processing [facility] 11-12-2023 Telephone encounter Note Prescription Refill [...] Shay LPN November 12, 2023 10:33 AM [facility] 11-12-2023 Miscellaneous Notes Prescription Refill Information [...] 2023 10:33 AM documented in this encounter [facility] 11-02-2023 Telephone encounter Note Prescription Refill [...] Prasad MA November 02, 2023 8:23 AM [facility] 11-02-2023 Miscellaneous Notes Prescription Refill Information [...] 2023 8:23 AM documented in this encounter [facility] 10-28-2023 Telephone encounter Note Request completed and faxed. [facility] 10-28-2023 Miscellaneous Notes Request completed and faxed. Done. Type of letter/form/fax request - Home Health Care Orders Form received from [facility] on 10/27/23 floor and placed on MD desk () for completion. Completed form needs to be faxed to [phone]. Route to [place] when form completed for processing documented in this encounter [facility] 10-28-2023 Telephone encounter Note Done. [facility] 10-28-2023 Telephone encounter Note Type of letter/form/fax request - Home Health Care Orders Form received from [facility] on 10/27/23 floor and placed on MD desk () for completion. Completed form needs to be faxed to [phone]. Route to [place] when form completed for processing [facility] 10-24-2023 Telephone encounter Note Noted. Melva Juárez PA-C [facility] 10-24-2023 Miscellaneous Notes Noted. Melva Juárez PA-C Summary: Patient Update [facility] PT called to report that patient cancelled her PT appointment today. documented in this encounter [facility] 10-22-2023 Telephone encounter Note Summary: Patient Update [facility] PT called to report that patient cancelled her PT appointment today. [facility] 10-18-2023 Telephone encounter Note Request completed and faxed. [facility] 10-18-2023 Miscellaneous Notes Request completed and faxed. Type of letter/form/fax request - Home Health Care Orders Form received from [facility] on 10/18/23 floor and placed on MD desk () for completion. Completed form needs to be faxed to [phone]. Route to [place] when form completed for processing documented in this encounter [facility] 10-18-2023 Telephone encounter Note Type of letter/form/fax request - Home Health Care Orders Form received from [facility] on 10/18/23 floor and placed on MD desk () for completion. Completed form needs to be faxed to [phone]. Route to [place] when form completed for processing [facility] 10-16-2023 Hospital Discharg e instructions Janneth Hartley PA-C - 10/16/2023 9:52 PM EDT Continue take your home medications as prescribed, and use lidocaine patches. Do the incentive spirometer for 10 breaths every 2 hours while awake. Return to ER if experiencing any worsening symptoms The following attachments cannot be sent through Care Everywhere.Preventing Falls ED (Cameroonian)Acute Pain, Adult (Cameroonian)documented in this encounter [facility] 10-16-2023 Emergency department Note Emergency Department Encounter [facility] ED Patient: Gonzalo Deluca : 1955 [...] Chest pain COPD (chronic obstructive pulmonary disease) ([facility]) USE OXYGEN 3 L AT NIGHT DDD (degenerative disc disease), cervical Defect, retina, with detachment right DJD (degenerative joint disease), lumbar Emphysema lung ([facility]) Former smoker Hematuria SCHEDULED FOR THE PROCEDURE /SURGERY ON 02/11/2017 Hypokalemia Lung nodules Near syncope 09/19/2023 Osteoporosis Palpitations Pneumonia Recurrent major depression ([facility]) Sciatica Thoracic compression fracture ([facility]) Vitamin D deficiency Past Surgical History: Procedure Laterality Date CYSTOSCOPY 01/12/2017 OFFICE PROCEDURE CYSTOSCOPY 02/11/2017 C&P bladder biopsy EYE SURGERY detached retina 1994 HYSTERECTOMY 11/06/2019 ABDOMINAL RADICAL HYSTERECTOMY WITH BSO AND PELVIC LYMPH; [facility] OTHER SURGICAL HISTORY Left 12/19/2019 Med [...] min Stress: No Stress Concern Present (09/19/2023) [employer] Occupational Health - Occupational Stress Questionnaire Feeling of Stress : Only a little Social Connections: Socially Isolated (09/19/2023) Social Connection and Isolation Panel [NHANES] Frequency of Communication with Friends and Family: Three times a week Frequency of Social Gatherings with Friends and Family: Three times a week Attends Hinduism Services: Never Active Member of Clubs or [...] Department Physician in the absence of a sky diver. Please see Anny for interpretation of EKG. [...] I consider the discharge disposition reasonable. Gonzalo Ferris Yosi and myself have engaged in Shared Decision [...] PATIENT REFERRED TO: Herminia Case MD [address] [facility] [address] Call [facility] ED [address] [facility] [id number] Go to If symptoms worsen [...] in this encounter [facility] 10-16-2023 Physician Emergency department Note Emergency Department Encounter [facility] ED Patient: Gonzalo Deluca : 1955 [...] Chest pain COPD (chronic obstructive pulmonary disease) ([facility]) USE OXYGEN 3 L AT NIGHT DDD (degenerative disc disease), cervical Defect, retina, with detachment right DJD (degenerative joint disease), lumbar Emphysema lung ([facility]) Former smoker Hematuria SCHEDULED FOR THE PROCEDURE /SURGERY ON 02/11/2017 Hypokalemia Lung nodules Near syncope 09/19/2023 Osteoporosis Palpitations Pneumonia Recurrent major depression ([facility]) Sciatica Thoracic compression fracture ([facility]) Vitamin D deficiency Past Surgical [...] min Stress: No Stress Concern Present (09/19/2023) [employer] Occupational Health - Occupational Stress Questionnaire Feeling of Stress : Only a little Social Connections: Socially Isolated (09/19/2023) Social Connection and Isolation Panel [NHANES] Frequency of Communication with Friends and Family: Three times a week Frequency of Social Gatherings with Friends and Family: Three times a week Attends Hinduism Services: Never Active Member of Clubs or [...] Department Physician in the absence of a sky diver. Please see Epiphany for interpretation of EKG. [...] PM PATIENT REFERRED TO: Herminia Case MD [address] [place] [address] [phone] Call [facility] ED [address] [place] [phone] Go to If symptoms worsen DISCHARGE [...] [employer] Janneth Hartley PA-C 10/16/232151 [facility] 10-11-2023 Telephone encounter Note Home care Certification Form 485 received from [facility]. For cert dates 09/26/23 to 11/24/23 that were signed on 10/11/23. New Certification Patient's home health 485 form / care plan for stated certification period reviewed and signed. Relevant medical records were reviewed. No changes were indicated [facility] 10-11-2023 Miscellaneous Notes Home care Certification Form 485 received from [facility]. For cert dates 09/26/23 to 11/24/23 that were signed on 10/11/23. New Certification Patient's home health 485 form / care plan for stated certification period reviewed and signed. Relevant medical records were reviewed. No changes were indicated documented in this encounter [facility] 10-11-2023 Telephone encounter Note Request completed and faxed. [facility] 10-11-2023 Miscellaneous Notes Request completed and faxed. Done. Type of letter/form/fax request - Home Health Care Orders Form received from [facility] on 10/06/23 floor and placed on MD desk () for completion. Completed form needs to be faxed to [phone]. Route to [place] when form completed for processing documented in this encounter [facility] 10-11-2023 Telephone encounter Note Done. [facility] 10-10-2023 Telephone encounter Note Type of letter/form/fax request - Home Health Care Orders Form received from [facility] on 10/06/23 floor and placed on MD desk () for completion. Completed form needs to be faxed to [phone]. Route to [place] when form completed for processing [facility] 10-06-2023 Note HNO ID: [id number] Author: LALA MOLINA LPN Service: ? Author Type: LICENSED NURSE Type: Progress Notes Filed: 10/06/2023 12:12 Note Text: This encounter was opened in error. [facility] 10-06-2023 History of Presen t illness Narrative This encounter was opened in error. documented in this encounter [facility] 10-06-2023 Telephone encounter Note [facility] is calling Herminia Case MD today to report patient's home health care physical therapy will be delayed a week as patient informed them that she is not feeling well.. Patient has been identified by name and birthdate. Duration of symptoms: N/A Person calling: caregiver: [facility] Call patient at: at home [phone] (home) [phone] (cell) Was an appointment scheduled: No Closing statement: Jessica Jay [facility] Work Phone: 10-06-2023 Miscellaneous Notes [facility] at Home is calling Herminia Case MD today to report patient's home health care physical therapy will be delayed a week as patient informed them that she is not feeling well.. Patient has been identified by name and birthdate. Duration of symptoms: N/A Person calling: caregiver: [facility] Call patient at: at home [phone] (home) [phone] (cell) Was an appointment scheduled: No Closing statement: Jessica Jay documented in this encounter [facility] 09-22-2023 Miscellaneous Notes Patient Choice Patient Name: GONZALO DELUCA Date of : 1955 All Providers Sent Referral Name: [facility] Phone: [phone] Address: [address] [place] [address] The patient is Moderately Unstable - Medium risk of patient condition declining or worsening The patient's goals for the shift include rest The clinical goals for the shift include safety Received message from Reny Telles APRN. Daughter Karishma requesting information on resources available to receive additional help in the home. Placed call to [phone]. Left voice mail and return call back [...] PT recommends return home with home care. sas developer following. Currently on 3 liters oxygen; wears [...] Note Home Health Referral Educated patient and daughterKarishma, on Home Care and services available. Patient offered choice of available HHC and agreeable to SN, PT services with [facility]. Care [...] is noted as yes - consider a SPECIFICATION WRITER evaluation once the patient returns home. START PATIENT REGISTRATION INFORMATION Order Information Order Signing Physician: Nickolas Marrero MD Service Ordered RN ?: Yes Service Ordered PT ?: Yes Service Ordered OT ?: No Service Ordered ST ?: No Service Ordered SPECIFICATION WRITER?:No Service Ordered ENGAGEMENT SPECIALIST?: No Following Physician: HERMINIA CASE MD Following Physician Overseeing Physician: HERMINIA CASE MD (Required for Residents only) Agreeable to Follow? Yes Date/Time of Call 09/21/23 2:04 PM, Spoke with: yes per call back received from office . Care Coordination Same Day SOC?: No Primary Care Physician: HERMINIA CASE MD Primary Care Physician Primary Care Physician Address: [address] [place] [id number] Visit Instructions: N/A Service Discharge Location Type: Home with Home Health Care Service Facility Name: N/A Service Floor Facility: N/A Service Room No: N/A Demographics Patient Last Name: Yosi Patient First Name: Gonzalo Language/Communication Barrier: DAUGHTER KARISHMA IS CONTACT Service Address: [address] [place] [address] [facility] City: [facility] ST: [place] Service ZIP: [address] [facility] Other phone numbers: Telephone Information: Emergency Contact: Extended Emergency Contact Information Primary Emergency Contact: Karishma Deluca Address: [address] [place] [address] [place] [address] [facility] Mobile Relation: Daughter Secondary Emergency Contact: Jace Deluca Mobile Relation: Son Admission Information Admit Date: 09/19/2023 Patient status at discharge: Inpatient Admitting Diagnosis: Near syncope [R55] Closed head injury, initial encounter [S09.90XA] Fall, initial encounter [W19.XXXA] Compression fracture of T7 vertebra, initial encounter ([facility]) [S22.060A] Compression fracture of T8 vertebra, initial encounter ([facility]) [S22.060A] Compression fracture of T5 vertebra, initial encounter ([facility]) [S22.050A] Compression fracture of L1 vertebra, initial encounter ([facility]) [S32.010A] Caregiver Information Caregiver First [...] Limits Permission given to speak with patient agency sales representative/caregiver as indicated: Yes Confirmation of Payer with patient/family: Yes Payer Name: [facility] Dual Complete [place]: No Confirmation of Primary Care Physician: Confirmed [...] Daily Living Prescription Coverage: Yes Pharmacy Used: [facility] in [place] Medication Management: Independent Transportation/Shopping: Transportation Mode: Car [...] to be discharged to: Home with possible [facility] Discharge Planning Actions: Continue to [...] home with possible HHC at this time. mergers and acquisitions manager to follow and assist as needed. [...] barriers include . documented in this encounter [facility] 09-22-2023 Note Formatting of this n ote might be different from the original. Patient Choice Patient Name: GONZALO DELUCA Date of : 1955 All Providers Sent Referral Name: [facility] Phone: [phone] Address: [address] [place] [id number] [facility] 09-22-2023 Note Formatting of this n ote might be different from the original. Patient Choice Patient Name: GONZALO DELUCA Date of : 1955 All Providers Sent Referral Name: [facility] Phone: [phone] Address: [address] [place], [place] [id number] [employer] 09-22-2023 History of Presen t illness Narrative Patient chart is reviewed. Currently rounding. Full note to follow. Hospitalist Progress Note 09/21/2023 Subjective: Admit Date: 09/19/2023 PCP: HERMINIA CASE MD Room#: B2-261/B2261 A BRIEF HOSPITAL COURSE: Admitted for syncopal [...] major depression (HCC) Sciatica Thoracic compression fracture ([facility]) Vitamin D deficiency LABS: CBC: Recent Labs 09/19/23 1707 09/19/23 1754 [id number]/21/23426 WBC 19.5* -- 10.9* 9.4 RBC 4.18 [...] last 72 hours. CARDIAC ENZYMES: Recent Labs 09/19/23170609/19/23231809/20/23626 TROPONINI 0.025 0.031 0.022 Procalcitonin: No results [...] appreciated. -replace K - Pt/OT- Home with [facility]. - DC home tomorrow if OK with consults. - am labs, replace lytes prn - PT/OT/CM/SW - delirium precautions: increase activity - DVT prophylaxis: enoxaparin and encourage ambulation Advance Directive: Full Code Anticipated Discharge Extended Emergency Contact Information Primary Emergency Contact: Karishma Deluca Address: [address] [place] [address] [place] [address] [facility] Mobile Relation: Daughter Secondary Emergency Contact: Jace Deluca Mobile Relation: Son Nickolas Marrero MD Division of Hospitalist Medicine Acute [facility] Images from the original note were not included. PHYSICAL THERAPY [facility] Initial Evaluation Name/MRN: Gonzalo Deluca ([id number]) Evaluation Date: 09/21/2023 Date of : 1955 Admission Date: 09/19/2023 4:29 PM Age: 67 y.o. Room/Bed: [facility]261/[facility] A Discharge Recommendation: Home with Home health [...] Acute exacerbation of chronic obstructive pulmonary disease ([facility]) 04/12/2018 Allergic rhinitis Arthritis Asthma Bronchitis Cancer ([facility]) ([facility]) skin Cervical cancer ([facility]) ([facility]) Chest pain COPD (chronic obstructive pulmonary disease) ([facility]) USE OXYGEN 3 L AT NIGHT DDD (degenerative disc disease), cervical Defect, retina, with detachment right DJD (degenerative joint disease), lumbar Emphysema lung ([facility]) Former smoker Hematuria SCHEDULED FOR THE PROCEDURE /SURGERY ON 02/11/2017 Hypokalemia Lung nodules Near syncope 09/19/2023 Osteoporosis Palpitations Pneumonia Recurrent major depression ([facility]) Sciatica Thoracic compression fracture ([facility]) Vitamin D deficiency Past Surgical History: Past Surgical History: Procedure Laterality Date CYSTOSCOPY 01/12/2017 OFFICE PROCEDURE CYSTOSCOPY 02/11/2017 C&P bladder biopsy EYE SURGERY detached retina 1994 HYSTERECTOMY 11/06/2019 ABDOMINAL RADICAL HYSTERECTOMY WITH BSO AND PELVIC LYMPH; DR[facility] OTHER SURGICAL HISTORY Left 12/19/2019 Med Port POWER Regular Size OTHER SURGICAL HISTORY Left 11/07/2022 Percutaneous skeltal fixation femoral fracture TUBAL LIGATION 1992 Admission Diagnosis: Patient Active Problem List Diagnosis Date Noted Severe malnutrition ([facility]) ([facility]) 09/20/2023 Falls frequently 09/20/2023 Unintentional weight loss 09/20/2023 Debility 09/20/2023 PFO (patent foramen ovale) 09/20/2023 Lumbar compression fracture, closed, initial encounter ([facility]) 02/13/2023 Nondisplaced fracture of neck of left femur ([facility]) 11/06/2022 Other specified complication of vascular prosthetic devices, implants and grafts, initial encounter ([facility]) 08/06/2021 Poor venous access 12/19/2019 H/O: CVA (cerebrovascular accident) 12/14/2019 Malignant neoplasm of exocervix ([facility]) 11/07/2019 S/P hysterectomy 11/07/2019 PNA (pneumonia) 08/02/2019 Leukocytosis 04/13/2018 Shortness of breath 04/13/2018 DDD (degenerative disc disease), cervical 04/12/2018 Recurrent major depression ([facility]) 04/12/2018 Chronic back pain 04/10/2017 COPD (chronic obstructive pulmonary disease) ([facility]) 04/10/2017 Pulmonary nodule 04/10/2017 Sciatica [...] Responsibilities: Independent Receives Help From: Family Active Band Saw Marker: N/A Prior Level of Function ADL Assistance: [...] Mobility Raw Score (No Stairs) : 14 [facility] Plan Pt would benefit from skilled [...] 906 (co eval with OT) Time Out 09 Minutes 20 Timed Code Treatment Minutes: 8 Minutes (x1 ther act) JEFFERSON Galdamez Patient's Physical Therapy Plan of Care supervision is transferred to a [facility] Therapy Services Physical Therapist. Goals and/or treatment plan was established in collaboration with patient/family/other representatives. Images from the original note were not included. OCCUPATIONAL THERAPY [facility] Initial Evaluation Name/MRN: Gonzalo Deluca ([id number]) Evaluation Date: 09/21/2023 Date of : 1955 [...] Acute exacerbation of chronic obstructive pulmonary disease ([facility]) 04/12/2018 Allergic rhinitis Arthritis Asthma Bronchitis Cancer (CMS/HCC) ([facility]) skin Cervical cancer (CMS/HCC) ([facility]) Chest pain COPD (chronic obstructive pulmonary disease) ([facility]) USE OXYGEN 3 L AT NIGHT DDD (degenerative disc disease), cervical Defect, retina, with detachment right DJD (degenerative joint disease), lumbar Emphysema lung ([facility]) Former smoker Hematuria SCHEDULED FOR THE PROCEDURE /SURGERY ON 02/11/2017 Hypokalemia Lung nodules Near syncope 09/19/2023 Osteoporosis Palpitations Pneumonia Recurrent major depression ([facility]) Sciatica Thoracic compression fracture ([facility]) Vitamin D deficiency Past Surgical [...] Diagnosis Date Noted Severe malnutrition (CMS/HCC) (HCC) 09/20/2023 Falls frequently 09/20/2023 Unintentional weight loss 09/20/2023 Debility 09/20/2023 PFO (patent foramen ovale) 09/20/2023 Lumbar compression fracture, closed, initial encounter ([facility]) 02/13/2023 Nondisplaced fracture of neck of left femur ([facility]) 11/06/2022 Other specified complication of vascular prosthetic devices, implants and grafts, initial encounter ([facility]) 08/06/2021 Poor venous access 12/19/2019 H/O: CVA (cerebrovascular accident) 12/14/2019 Malignant neoplasm of exocervix ([facility]) 11/07/2019 S/P hysterectomy 11/07/2019 PNA (pneumonia) 08/02/2019 Leukocytosis 04/13/2018 Shortness of breath 04/13/2018 DDD (degenerative disc disease), cervical 04/12/2018 Recurrent major depression ([facility]) 04/12/2018 Chronic back pain 04/10/2017 COPD (chronic obstructive pulmonary disease) ([facility]) 04/10/2017 Pulmonary nodule 04/10/2017 Sciatica [...] Responsibilities: Independent Receives Help From: Family Active Band Saw Marker: N/A Prior Level of Function ADL Assistance: [...] Time Out 926 co-eval Minutes 20 Roopa More OT Patient's Occupational Therapy Plan of Care supervision is transferred to a [facility] Therapy Services Occupational Therapist. Goals and/or treatment plan was established in collaboration with patient/family/other representatives. [facility] Geriatric Medicine Inpatient Consult Service Admission Date: 09/19/2023 Assessment Principal Problem: Falls frequently Active Problems: Severe malnutrition (CMS/HCC) (HCC) Unintentional weight loss Debility Chronic back pain COPD (chronic obstructive pulmonary disease) ([facility]) Supplemental oxygen dependent Plan Polypharmacy [...] impairment --Recommend outpatient follow [facility] at [facility] for more in depth [...] [facility] on 7/1/24 for fall. Found to have prolonged QT [...] 650 mg, 650 mg, Oral, TID, Saad Haynese, SYSTEMS ANALYSIS MANAGER - NAILING MACHINE OPERATOR, 650 mg at 09/21/23821 buPROPion XL (Wellbutrin XL) 24 hr tablet 150 mg, 150 mg, Oral, Daily, Lauren Serna MD, 150 mg at 09/21/23821 busPIRone (Buspar) tablet 15 mg, 15 mg, Oral, TID, Saad Haynese, SYSTEMS ANALYSIS MANAGER - NAILING MACHINE OPERATOR, 15 mg at 09/21/23821 calcitonin (Miacalcin) injection 50 Units, 50 Units, IntraMUSCular, Daily, Lauren Serna MD enoxaparin (Lovenox) syringe 40 mg, 40 mg, SubCUTAneous, Daily, Lauren Serna MD, 40 mg at 09/21/23821 lidocaine (LMX) 4 % cream, , Topical, PRN, Lauren Serna MD melatonin tablet 3 mg, 3 mg, Oral, Nightly PRN, Saad Telles SYSTEMS ANALYSIS MANAGER - NAILING MACHINE OPERATOR, 3 mg at 09/20/232121 mirtazapine (Remeron) tablet 15 mg, 15 mg, Oral, Nightly, Saad Telles SYSTEMS ANALYSIS MANAGER - NAILING MACHINE OPERATOR, 15 mg at 09/20/232122 mometasone-formoterol (Dulera [...] mg, Oral, Daily, Saad Telles APRN - NAILING MACHINE OPERATOR, 30 mg at 09/21/23 0822 perflutren protein [...] 1.017 09/21/2023 Lab Results Component Value Date [id number] 735 09/21/2023 Lab Results Component Value Date [...] (gastrocnemius) Fluid Accumulation: No significant fluid accumulation Spray Booth Operator Strength: Not Performed Nutrition Assessment: 67 y.o. [...] (kg): 52 kg Total Energy Requirements (kcals/day): 3679-2689 (28-35) Weight Used for Protein Requirements: Current [...] RD records) % Weight Change (Calculated): -8 [place] Body Weight (lbs) (Calculated): 125 lbs [place] Body Weight (Kg) (Calculated): 57 kg % [place] Body Weight (Calculated): 92 % BMI (kg/m2) [...] Oral Nutrition Supplement Mara Corona RD Contact: *[phone] or via Secure Chat Hospitalist Progress Note [...] 09/19/2023 Osteoporosis Palpitations Pneumonia Recurrent major depression ([facility]) Sciatica Thoracic compression fracture ([facility]) Vitamin D deficiency LABS: CBC: Recent Labs 09/19/23170609/19/23 17509/20/23 06 WBC 19.5* -- 10.9* RBC 4.18 [...] Information Primary Emergency Contact: Karishma Deluca Address: [address] [place] [address] [place] [address] [place] [facility] [place] Mobile Relation: Daughter Secondary Emergency Contact: Jace Deluca Mobile Relation: Son Nickolas Marrero MD Division of Hospitalist Medicine [facility] Images from the original note were not included. PHYSICAL THERAPY [facility] Name/MRN: Gonzalo Starkssumeetbenji ([id number]) Date: 09/20/2023 PT orders received and chart reviewed. Pt with multiple, severe compresssion fractures of the T and L spine. Ortho consulted. Will await Ortho POC prior to initiating therapy [facility] Images from the original note were not included. OCCUPATIONAL THERAPY [facility] Name/MRN: Gonzalo Starkssumeetbenji ([id number]) Date: 09/20/2023 OT orders received and chart reviewed. Pt with multiple, severe compresssion fractures of the T and L spine. Ortho consulted. Will await Ortho POC prior to initiating therapy. Roopa More OT documented in this encounter [facility] 09-22-2023 Plan of care note The patient is Moderately Unstable - Medium risk of patient condition declining or worsening The patient's goals for the shift include rest The clinical goals for the shift include safety [facility] 09-21-2023 Telephone encounter Note Called and spoke with Vivian from [facility] They just need to confirm Dr. Case will follow for For homecare They Don't need orders. Verbal given now. [facility] Work Phone: 09-21-2023 Miscellaneous Notes Called and spoke with Vivian from [facility] They just need to confirm Dr. Case will follow for For homecare They Don't need orders. Verbal given now. Orders or will Dr. Case follow? She will follow. We don't typically give home care orders. Melva Juárez PA-C Ashley from [facility] Patient currently admitted for falls Need orders to follow for Home Care Call back number: [phone] documented in this encounter [facility] 09-21-2023 Hospital Discharg e instructions Freddy Black MD - 09/21/2023 4:28 PM EDT Images from the original note were not included. You have been evaluated in the hospital for a behavioral health problem. I recommend you contact the following mental health provider(s) to schedule an appointment as soon as possible: [x] [facility]; [facility] (Psychiatry, Counseling,Addiction Services); [address], [place] [address]; [x] [facility]; (Psychiatry, Counseling, Addiction Services); [address], [address] [facility] [address], [facility] [address]; [x] [facility]; (Psychiatry, Counseling); [address] [place] [address]; [] [facility]; (Psychiatry, Counseling); [address], [address], [place] [address]; [] [facility] (Psychiatry, Counseling); [address], [place] [address]; [] [facility]; (Psychiatry, Counseling); [address], [place] [address]; [] [facility]; (Psychiatry, Counseling); [address], [address], [place] [address]; [x] [facility] (Psychiatry, Counseling, Case Management); [address], [place] [address]; ; for initial assessments you may call or walk-in on Mondays and Tuesdays at 8:00 AM [] [facility] (Psychiatry, Counseling, Case Management); [address] [place] [address]; ; for initial assessments you may call or walk-in on at noon [] [facility] (Psychiatry, Counseling, Case Management); [address] [place] [address]; [x] [facility] (Psychiatry, Counseling, Case Management, Addiction Services); [address] [place] [address]; [x] [facility] (Psychiatry, Counseling, Case Management, Addiction Services); [address], [place] [address]; [x] [facility] (Psychiatry, Counseling, Case Management, Addiction Services); [address], [place] [address]; [] [facility] (Psychiatry, Counseling); [address] [place] [address]; [] [facility] (Psychiatry, Counseling, Case Management - has evening and weekend hours); [address] [place] [address]; If you or someone you know is struggling or in crisis, help is available. Call or text 379 or chat [email or web address]. -OR- Call the [facility] Crisis Hotline at 981-420-6317 -OR- Visit [facility] Psychiatric Emergency Services, in person, at [address] [place] [address]; You should return to the Emergency Department [...] Information Primary Emergency Contact: Karishma Deluca Address: [address] [place] [address] [place] [address] [facility] Mobile Relation: Daughter Secondary Emergency Contact: [...] prosthetic devices, implants and grafts, initial encounter ([facility]) Nondisplaced fracture of neck of left femur (HCC) Lumbar compression fracture, closed, initial encounter ([facility]) Severe malnutrition (CMS/HCC) ([facility]) Unintentional weight loss Debility PFO (patent foramen ovale) Poor venous access Chronic back pain COPD (chronic obstructive pulmonary disease) ([facility]) Overview Signed 01/01/2022 6:48 AM by Interface, Incoming Problems- [facility] Conversion On home 3-4L NC DDD (degenerative disc disease), cervical Leukocytosis Malignant neoplasm of exocervix ([facility]) Recurrent major depression ([facility]) Pulmonary nodule Overview Signed 01/01/2022 [...] (115 lb) Mental Status: {SHAMA Patient Mental Status:54974} IV Access: {SHAMA IV Access:16613} Nursing Mobility/ADLs: Walking {YANETH ADL:::"Independent"} Transfer {YANETH ADL:::"Independent"} Bathing {YANETH ADL:::"Independent"} Dressing {YANETH ADL:::"Independent"} Toileting {YANETH ADL:::"Independent"} Feeding {YANETH ADL:::"Independent"} Electronics Manufacturer {YANETH ADL:::"Independent"} Med Delivery {yes/no:53004} Wound Care Documentation and Therapy: Wound/Incision 05/21/22 Traumatic Eye Right (Active) Number of days: 487 Wound/Incision 05/21/22 Traumatic Wrist Left;Posterior (Active) Number of days: 487 Wound/Incision 11/07/22 Incision Leg Anterior;Left;Proximal;Upper (Active) Number of days: 318 Elimination: Continence: Bowel: {yes/no:68701} Bladder: {yes/no:08955} Urinary Catheter: {SHAMA Urinary Catheter:57952} Colostomy/Ileostomy/Ileal Conduit: {YES / NO:} Date of Last BM: Intake/Output Summary (Last 24 hours) at 09/21/2023 1408 Last data filed at 09/21/2023 0218 Gross per 24 hour Intake -- Output 800 ml Net -800 ml I/O last 3 completed shifts: In: 752.1 (14.4 mL/kg) [I.V.:52.1 (1 mL/kg); IV Piggyback:700] Out: 800 (15.3 mL/kg) [Urine:800 (0.4 mL/kg/hr)] Weight: 52.2 kg Safety Concerns: {SHAMA Safety Concerns:29300} Impairments/Disabilities: {SHAMA Impairments/Disabilities:41384} Nutrition Therapy: Current Nutrition Therapy: {SHAMA Diet List:23696} Routes of Feeding: {routes of feedin} Liquids: {liquid consistency:14044} Daily Fluid Restriction: {daily fluid restriction:93321} Last Modified Barium Swallow with Video (Video Swallowing Test): {done not done:41083} Treatments at the Time of Hospital Discharge: Respiratory Treatments: Oxygen Therapy: {Therapy; copd oxygen:95622} Ventilator: {SHAMA Ventilator:60891} Rehab Therapies: {GEN THERAPY DISCIPLINE SCAL:5786406} Weight Bearing Status/Restrictions: {POD WEIGHT BEARIN} Other Medical Equipment (for information only, NOT a DME order): {Assistive Devices DME:79670} Other Treatments: Patient's personal belongings (please select all that are sent with patient): {SHAMA Patient Belongings:76842} RN SIGNATURE: {E-signature:21787} CASE MANAGEMENT/SOCIAL WORK SECTION Inpatient Status Date: Discharging to Facility/ Agency Name: [facility] Address: [address] [place] [address] \\ Dialysis Facility (if applicable) Name: Address: Dialysis Schedule: Phone: Fax: Cribbing Setter/Contract Technical Writer signature: {E-signature:48715} PHYSICIAN SECTION Name: Gonzalo Deluca Prognosis: {Rehab Prognosis:47981} Condition at Discharge: {Patient Condition:66426} Rehab Potential (if transferring to Rehab): {Rehab Prognosis:86452} Recommended Labs or Other Treatments After Discharge: The individual is being admitted to a nursing facility directly from an [facility] or a unit of a [facility] that is not operated by or licensed by [facility] under section 5119.14 or 5160-3-15.1 5 The individual requires the level of services provided by a nursing facility for the condition for which he or she was treated in the hospital and, Physician Certification: I certify the above information and transfer of Gonzalo Deluca is necessary for the continuing treatment of the diagnosis listed and that she requires {SHAMA Level of Care:91214} for {greater less than:48573} 30 days. Update Admission H&P: {SHAMA Changes in H&P:85289} PHYSICIAN SIGNATURE: {E-signature:41636} documented in this encounter [facility] 09-21-2023 Note Formatting of this n ote might be different from the original. Received message from Reny Telles APRN. Daughter Karishma requesting information on resources available to receive additional help in the home. Placed call to [phone]. Left voice mail and return call back number. [facility] is not here tomorrow -plan to return on Tuesday09/23/23. Made referral to [facility] per Reny Telles APRN. [facility] 09-21-2023 Note Formatting of this n ote might be different from the original. Received message from Reny Telles APRN. Daughter Karishma requesting information on resources available to receive additional help in the home. Placed call to [phone]. Left voice mail and return call back number. [facility] is not here tomorrow -plan to return on Tuesday09/23/23. Made referral to [facility] per Reny Telles APRN. [facility] 09-21-2023 Consult note Associated Order (s): IP CONSULT TO PSYCHIATRY Department of Psychiatry Consult Service Attending Consult Note Reason for Consult: " History of anxiety and panic attacks. High risk medications with history of recurrent falls. 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 Initial presentation significant for hypokalemia and MARIA. [...] Bronchitis Cancer (CMS/HCC) (HCC) skin Cervical cancer ([facility]/HCC) ([facility]) Chest pain COPD (chronic obstructive pulmonary disease) ([facility]) USE OXYGEN 3 L AT NIGHT DDD (degenerative disc disease), cervical Defect, retina, with detachment right DJD (degenerative joint disease), lumbar Emphysema lung ([facility]) Former smoker Hematuria SCHEDULED FOR THE PROCEDURE /SURGERY ON 02/11/2017 Hypokalemia Lung nodules Near syncope 09/19/2023 Osteoporosis Palpitations Pneumonia Recurrent major depression ([facility]) Sciatica Thoracic compression fracture ([facility]) Vitamin D deficiency Past Surgical History: Past Surgical History: Procedure Laterality Date CYSTOSCOPY 01/12/2017 OFFICE PROCEDURE CYSTOSCOPY 02/11/2017 C&P bladder biopsy EYE SURGERY detached retina 1994 HYSTERECTOMY 11/06/2019 ABDOMINAL RADICAL HYSTERECTOMY WITH BSO AND PELVIC LYMPH; [facility] OTHER SURGICAL HISTORY Left 12/19/2019 Med [...] mg 650 mg Oral TID Saad Ezzie, SYSTEMS ANALYSIS MANAGER - NAILING MACHINE OPERATOR 650 mg at 09/21/23 1339 buPROPion XL (Wellbutrin XL) 24 hr tablet 150 mg 150 mg Oral Daily Lauren Serna MD 150 mg at 09/21/23 0822 busPIRone (Buspar) tablet 15 mg 15 mg Oral TID Saad Ezzie, SYSTEMS ANALYSIS MANAGER - NAILING MACHINE OPERATOR 15 mg at 09/21/23 1340 calcitonin (Miacalcin) injection 50 Units 50 Units IntraMUSCular Daily Lauren Serna MD 50 Units at 09/21/23 1217 [START ON 09/22/2023] cholecalciferol (Vitamin D-3) tablet 1,000 Units 1,000 Units Oral Daily Saad Ezzie, SYSTEMS ANALYSIS MANAGER - NAILING MACHINE OPERATOR enoxaparin (Lovenox) syringe 40 mg 40 mg SubCUTAneous Daily Lauren Serna MD 40 mg at 09/21/23 0822 lidocaine (LMX) 4 % cream Topical PRN Lauren Serna MD melatonin tablet 3 mg 3 mg Oral Nightly Saad Ezzie, SYSTEMS ANALYSIS MANAGER - NAILING MACHINE OPERATOR mirtazapine (Remeron) tablet 15 mg 15 mg Oral Nightly Saad Ezzie, SYSTEMS ANALYSIS MANAGER - NAILING MACHINE OPERATOR 15 mg at 09/20/23 2123 mometasone-formoterol (Dulera [...] 30 mg 30 mg Oral Daily Saad Ezdariene, SYSTEMS ANALYSIS MANAGER - NAILING MACHINE OPERATOR 30 mg at 09/21/23 0822 perflutren [...] Nightly Lauren Serna MD 100 mg at 09/20/232 senna-docusate sodium (Senokot-S) 8.6-50 MG tablet 1 tablet 1 tablet Oral Nightly Saad Haynese, SYSTEMS ANALYSIS MANAGER - NAILING MACHINE OPERATOR tiotropium (Spiriva Respimat) 2.5 MCG/ACT inhaler [...] QT Interval 382 QTC Interval 446 P [place] 46 QRS [place] -35 T Wave [place] 147 DE Interval 142 Impression Sinus rhythm Nonspecific T [...] Significant recent weight loss, questionable PO intake 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 Prolonged QT related to [...] primary team. 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 Initial presentation significant for hypokalemia and MARIA. [...] Acute exacerbation of chronic obstructive pulmonary disease ([facility]) 04/12/2018 Allergic rhinitis Arthritis Asthma Bronchitis Cancer ([facility]) ([facility]) skin Cervical cancer ([facility]) ([facility]) Chest pain COPD (chronic obstructive pulmonary disease) ([facility]) USE OXYGEN 3 L AT NIGHT DDD (degenerative disc disease), cervical Defect, retina, with detachment right DJD (degenerative joint disease), lumbar Emphysema lung ([facility]) Former smoker Hematuria SCHEDULED FOR THE PROCEDURE /SURGERY ON 02/11/2017 Hypokalemia Lung nodules Near syncope 09/19/2023 Osteoporosis Palpitations Pneumonia Recurrent major depression ([facility]) Sciatica Thoracic compression fracture ([facility]) Vitamin D deficiency Past Surgical [...] mg 650 mg Oral TID Saad Ezzie, SYSTEMS ANALYSIS MANAGER - NAILING MACHINE OPERATOR 650 mg at 09/21/23 1339 buPROPion XL (Wellbutrin XL) 24 hr tablet 150 mg 150 mg Oral Daily Lauren Serna MD 150 mg at 09/21/23 0822 busPIRone (Buspar) tablet 15 mg 15 mg Oral TID Saad Ezzie, SYSTEMS ANALYSIS MANAGER - NAILING MACHINE OPERATOR 15 mg at 09/21/23 1340 calcitonin (Miacalcin) injection 50 Units 50 Units IntraMUSCular Daily Lauren Serna MD 50 Units at 09/21/23 1217 [START ON 09/22/2023] cholecalciferol (Vitamin D-3) tablet 1,000 Units 1,000 Units Oral Daily Saad Ezzie, SYSTEMS ANALYSIS MANAGER - NAILING MACHINE OPERATOR enoxaparin (Lovenox) syringe 40 mg 40 mg SubCUTAneous Daily Lauren Serna MD 40 mg at 09/21/23 0822 lidocaine (LMX) 4 % cream Topical PRN Lauren Serna MD melatonin tablet 3 mg 3 mg Oral Nightly Saad Ezzie, SYSTEMS ANALYSIS MANAGER - NAILING MACHINE OPERATOR mirtazapine (Remeron) tablet 15 mg 15 mg Oral Nightly Saad Ezzie, SYSTEMS ANALYSIS MANAGER - NAILING MACHINE OPERATOR 15 mg at 09/20/23 2123 mometasone-formoterol (Dulera [...] mg Oral Daily Saad Telles APRN - NAILING MACHINE OPERATOR 30 mg at 09/21/23 0822 perflutren [...] QT Interval 382 QTC Interval 446 P Rutland 46 QRS [place] -35 T Wave [place] 147 DE Interval 142 Impression Sinus rhythm Nonspecific T [...] Significant recent weight loss, questionable PO intake 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 Prolonged QT related to [...] peripherally Associated Order(s): IP CONSULT TO GERIATRICS [facility] Geriatric Medicine Inpatient Consult Service Admission [...] . Advance Care Planning Healthcare Power of Correction Officer Head: Unknown Financial Power of Correction Officer Head: Unknown Living Will:Unknown Code Status: Full Code [...] Allergic rhinitis Arthritis Asthma Bronchitis Cancer (CMS/HCC) ([facility]) skin Cervical cancer (CMS/HCC) ([facility]) Chest pain COPD (chronic obstructive pulmonary disease) ([facility]) USE OXYGEN 3 L AT NIGHT DDD (degenerative disc disease), cervical Defect, retina, with detachment right DJD (degenerative joint disease), lumbar Emphysema lung ([facility]) Former smoker Hematuria SCHEDULED FOR THE PROCEDURE /SURGERY ON 02/11/2017 Hypokalemia Lung nodules Near syncope 09/19/2023 Osteoporosis Palpitations Pneumonia Recurrent major depression ([facility]) Sciatica Thoracic compression fracture ([facility]) Vitamin D deficiency Past Surgical [...] 468 ms QTC Interval 594 ms P Rut[place] 25 degrees QRS Rutland -48 degrees T Wave [place] 0 degrees DE Interval 140 ms CBC auto differential Collection [...] 382 ms QTC Interval 446 ms P [place] 46 degrees QRS Rut[place] -35 degrees T Wave [place] 147 degrees DE Interval 142 ms Transthoracic echocardiogram (TTE) complete [...] imaging Follow-up: will follow with you Saad Granados DB Telles - [place] 09/20/23 4:58 PM Associated Order(s): IP CONSULT TO CARDIOLOGY [facility] Cardiology Consult Note Reason for Consult/Chief Complaint: "Syncope" Established sky diver: None History of Present Illness: Gonzalo Deluca [...] primary service arrange f/u with patient's outpatient sky diver 1-2 wks. [] Recommended; unable to arrange at this time, will arrange post-discharge [] Arranged as follows: If there are any questions/concerns, please contact the covering provider. If no answer by Secure Chat, please call the cardiology office to obtain appropriate covering INSECTICIDE SUPERVISOR/physician. Medications: buPROPion XL, 150 mg, Oral, Daily [...] Allergic rhinitis Arthritis Asthma Bronchitis Cancer (CMS/HCC) ([facility]) skin Cervical cancer (CMS/HCC) ([facility]) Chest pain COPD (chronic obstructive pulmonary disease) ([facility]) USE OXYGEN 3 L AT NIGHT DDD (degenerative disc disease), cervical Defect, retina, with detachment right DJD (degenerative joint disease), lumbar Emphysema lung ([facility]) Former smoker Hematuria SCHEDULED FOR THE PROCEDURE /SURGERY ON 02/11/2017 Hypokalemia Lung nodules Near syncope 09/19/2023 Osteoporosis Palpitations Pneumonia Recurrent major depression ([facility]) Sciatica Thoracic compression fracture ([facility]) Vitamin D deficiency Past Surgical [...] follow with you. documented in this encounter [facility] 09-21-2023 Telephone encounter Note Orders or will Dr. Case follow? She will follow. We don't typically give home care orders. Melva Juárez PA-C [facility] 09-21-2023 Telephone encounter Note Ashley from [facility] Patient currently admitted for falls Need orders to follow for Home Care Call back number: [phone] [facility] 09-21-2023 Note Formatting of this n ote is different from the original. Images from the original note were not included. Care Management Progress Note Chart reviewed. Patient remains on 2 east for treatment of falls and lumbar compression. Has LSO brace at home (per Ortho notes). Geriatrics following. PT recommends return home with home care. sas developer following. Currently on 3 liters oxygen; wears [...] Stay (Days): 2 GMLOS: No GMLOS Documented [facility] 09-21-2023 Note Formatting of this n ote is different from the original. Images from the original note were not included. Care Management Progress Note Chart reviewed. Patient remains on 2 east for treatment of falls and lumbar compression. Has LSO brace at home (per Ortho notes). Geriatrics following. PT recommends return home with home care. sas developer following. Currently on 3 liters oxygen; wears [...] Stay (Days): 2 GMLOS: No GMLOS Documented [facility] 09-21-2023 Note Formatting of this n ote is different from the original. Start PACC Note Home Health Referral Educated patient and daughter, Karishma, on Home Care and services available. Patient offered choice of available HHC and agreeable to SN, PT services with [facility]. Care Types: [...] is noted as yes - consider a SPECIFICATION WRITER evaluation once the patient returns home. START PATIENT REGISTRATION INFORMATION Order Information Order Signing Physician: Nickolas Marrero MD Service Ordered RN ?: Yes Service Ordered PT ?: Yes Service Ordered OT ?: No Service Ordered ST ?: No Service Ordered SPECIFICATION WRITER?:No Service Ordered ENGAGEMENT SPECIALIST?: No Following Physician: HERMINIA CASE MD Following Physician Overseeing Physician: HERMINIA CASE MD (Required for Residents only) Agreeable to Follow? Yes Date/Time of Call 09/21/23 2:04 PM, Spoke with: yes per call back received from office . Care Coordination Same Day SOC?: No Primary Care Physician: HERMINIA CASE MD Primary Care Physician Primary Care Physician Address: [address] [place] [id number] Visit Instructions: N/A Service Discharge Location Type: Home with Home Health Care Service Facility Name: N/A Service Floor Facility: N/A Service Room No: N/A Demographics Patient Last Name: Yosi Patient First Name: Gonzalo Language/Communication Barrier: DAUGHTER KARISHMA IS CONTACT Service Address: [address] Service City: [facility] ST: [place] Service ZIP: [address] Service Other phone numbers: Telephone Information: Emergency Contact: Extended Emergency Contact Information Primary Emergency Contact: RaudelsumeetKarishma leblanc Address: [address] [place] [address] [facility] Mobile Relation: Daughter Secondary Emergency Contact: Jace Deluca Mobile Relation: Son Admission Information Admit Date: 09/19/2023 Patient status at discharge: Inpatient Admitting Diagnosis: Near syncope [R55] Closed head injury, initial encounter [S09.90XA] Fall, initial encounter [W19.XXXA] Compression fracture of T7 vertebra, initial encounter ([facility]) [S22.060A] Compression fracture of T8 vertebra, initial encounter ([facility]) [S22.060A] Compression fracture of T5 vertebra, initial encounter ([facility]) [S22.050A] Compression fracture of L1 vertebra, initial encounter ([facility]) [S32.010A] Caregiver Information Caregiver First Name: NA Caregiver Last Name: NA Caregiver Relationship to Patient NA Caregiver Phone Number: NA Caregiver Notes: N/A [employer] DNA Response-Tech List No END PATIENT REGISTRATION INFORMATION Pt [...] Center / B2-261/B2-261 A End PACC Note [facility] 09-21-2023 Note Formatting of this n ote is different from the original. Start PACC Note Home Health Referral Educated patient and daughter, Karishma, on Home Care and services available. Patient offered choice of available HHC and agreeable to SN, PT services with [facility]. Care [...] is noted as yes - consider a SPECIFICATION WRITER evaluation once the patient returns home. START PATIENT REGISTRATION INFORMATION Order Information Order Signing Physician: Nickolas Marrero MD Service Ordered RN ?: Yes Service Ordered PT ?: Yes Service Ordered OT ?: No Service Ordered ST ?: No Service Ordered SPECIFICATION WRITER?:No Service Ordered ENGAGEMENT SPECIALIST?: No Following Physician: HERMINIA CASE MD Following Physician Overseeing Physician: HERMINIA CASE MD (Required for Residents only) Agreeable to Follow? Yes Date/Time of Call 09/21/23 2:04 PM, Spoke with: yes per call back received from office . Care Coordination Same Day SOC?: No Primary Care Physician: HERMINIA CASE MD Primary Care Physician Primary Care Physician Address: [address] [place] [id number] Visit Instructions: N/A Service Discharge Location Type: Home with Home Health Care Service Facility Name: N/A Service Floor Facility: N/A Service Room No: N/A Demographics Patient Last Name: Yosi Patient First Name: Gonzalo Language/Communication Barrier: DAUGHTER KARISHMA IS CONTACT Service Address: [address] [place] [address] [facility] City: [facility]: [place] Service ZIP: [address] [facility] Other phone numbers: Telephone Information: Emergency Contact: Extended Emergency Contact Information Primary Emergency Contact: Karishma Deluca Address: [address] [place] [address] [place] [address] [facility] Mobile Relation: Daughter Secondary Emergency Contact: Jace Deluca Mobile Relation: Son Admission Information Admit Date: 09/19/2023 Patient status at discharge: Inpatient Admitting Diagnosis: Near syncope [R55] Closed head injury, initial encounter [S09.90XA] Fall, initial encounter [W19.XXXA] Compression fracture of T7 vertebra, initial encounter ([facility]) [S22.060A] Compression fracture of T8 vertebra, initial encounter ([facility]) [S22.060A] Compression fracture of T5 vertebra, initial encounter ([facility]) [S22.050A] Compression fracture of L1 vertebra, initial encounter ([facility]) [S32.010A] Caregiver Information Caregiver First Name: NA Caregiver Last Name: NA Caregiver Relationship to Patient NA Caregiver Phone Number: NA Caregiver Notes: N/A Net[employer]-Appiphany List No END PATIENT REGISTRATION INFORMATION Pt [...] Center / B2-261/-261 A End PACC Note [facility] 09-21-2023 Plan of care note The patient is Moderately Unstable - Medium risk of patient condition declining or worsening The patient's goals for the shift include safety and comfort The clinical goals for the shift include safety [facility] 09-20-2023 Consult note Associated Order (s): IP CONSULT TO GERIATRICS [facility] Geriatric Medicine Inpatient Consult Service Admission [...] . Advance Care Planning Healthcare Power of Correction Officer Head: Unknown Financial Power of Correction Officer Head: Unknown Living Will:Unknown Code Status: Full Code [...] mg, 0.4 mg, IntraVENous, q5 min PRN, Laruen Serna MD nicotine (Nicoderm, Step 2) 14 [...] Chest pain COPD (chronic obstructive pulmonary disease) ([facility]) USE OXYGEN 3 L AT NIGHT DDD (degenerative disc disease), cervical Defect, retina, with detachment right DJD (degenerative joint disease), lumbar Emphysema lung ([facility]) Former smoker Hematuria SCHEDULED FOR THE PROCEDURE /SURGERY ON 02/11/2017 Hypokalemia Lung nodules Near syncope 09/19/2023 Osteoporosis Palpitations Pneumonia Recurrent major depression ([facility]) Sciatica Thoracic compression fracture ([facility]) Vitamin D deficiency Past Surgical [...] 468 ms QTC Interval 594 ms P [place] 25 degrees QRS [place] -48 degrees T Wave [place] 0 degrees DE Interval 140 ms CBC auto differential Collection [...] 44.2 (L) >60.0 mL/min/1.73m*2 Blood gas, venous ([facility]) Collection Time: 09/19/23 5:54 PM [...] 382 ms QTC Interval 446 ms P [place] 46 degrees QRS [place] -35 degrees T Wave [place] 147 degrees DE Interval 142 ms Transthoracic echocardiogram (TTE) complete [...] follow with you Saad Telles, DB - NAILING MACHINE OPERATOR 09/20/23 4:58 PM [facility] 09-20-2023 Note Formatting of this n ote might be different from the original. Care Managment Initial Assessment Date: 09/20/2023 Patient Name: Gonzalo Deluca : 1955 Patient Information Source of Information: Patient Cognition/Language: WFL - Within Functional Limits Permission given to speak with patient agency sales representative/caregiver as indicated: Yes Confirmation of Payer with patient/family: Yes Payer Name: [facility] Dual Complete [place]: No Confirmation of Primary Care Physician: Confirmed [...] Prescription Coverage: Yes Pharmacy Used: [facility] [place] Medication Management: Independent Transportation/Shopping: Transportation Mode: Car [...] to be discharged to: Home with possible [facility] Discharge Planning Actions: Continue to [...] home with possible HHC at this time. mergers and acquisitions manager to follow and assist as needed. Carolina Alvarez RN [facility] 09-20-2023 Note Formatting of this n ote might be different from the original. Care Managment Initial Assessment Date: 09/20/2023 Patient Name: Gonzalo Deluca : 1955 Patient Information Source of Information: Patient Cognition/Language: WFL - Within Functional Limits Permission given to speak with patient agency sales representative/caregiver as indicated: Yes Confirmation of Payer with patient/family: Yes Payer Name: [facility] Dual Complete [place]: No Confirmation of Primary Care Physician: Confirmed [...] Prescription Coverage: Yes [facility]acy Used[facility] [place] Medication Management: Independent Transportation/Shopping: Transportation Mode: Car [...] home with possible HHC at this time. mergers and acquisitions manager to follow and assist as needed. Carolina Alvarez RN [facility] 09-20-2023 Consult note Associated Order (s): IP CONSULT TO CARDIOLOGY [facility] Cardiology Consult Note Reason for Consult/Chief Complaint: "Syncope" Established sky diver: None History of Present Illness: Gonzalo Deluca [...] primary service arrange f/u with patient's outpatient sky diver 1-2 wks. [] Recommended; unable to arrange at this time, will arrange post-discharge [] Arranged as follows: If there are any questions/concerns, please contact the covering provider. If no answer by Secure Chat, please call the cardiology office to obtain appropriate covering INSECTICIDE SUPERVISOR/physician. Medications: buPROPion XL, 150 mg, Oral, Daily [...] Ovalles MD DATE of SERVICE: 09/20/2023 T [facility] 09-20-2023 Consult note Associated Order (s): [...] test Allergic rhinitis Arthritis Asthma Bronchitis Cancer ([facility]) ([facility]) skin Cervical cancer ([facility]) ([facility]) Chest pain COPD (chronic obstructive pulmonary disease) ([facility]) USE OXYGEN 3 L AT NIGHT DDD (degenerative disc disease), cervical Defect, retina, with detachment right DJD (degenerative joint disease), lumbar Emphysema lung ([facility]) Former smoker Hematuria SCHEDULED FOR THE PROCEDURE /SURGERY ON 02/11/2017 Hypokalemia Lung nodules Near syncope 09/19/2023 Osteoporosis Palpitations Pneumonia Recurrent major depression ([facility]) Sciatica Thoracic compression fracture ([facility]) Vitamin D deficiency Past Surgical [...] 1 tablet by mouth Nightly. 11/24/19 Historical ProviderMD buPROPion XL (Wellbutrin XL) 150 MG 24 [...] 1 tablet by mouth Nightly. 11/24/19 Historical ProviderMD cyclobenzaprine (Flexeril) 10 MG tablet Take 1 [...] the consult we will follow with you. [facility] 09-20-2023 Plan of care note [...] Recommendations to address these barriers include . [facility] 09-19-2023 Nurse Note Explained to patient about transfer to 261. Patient verbalized understanding. Report called to 2e rn. No further questions at present. Attempted to restart potassium. Patient c./o paon at iv site. Potassium slowed and arm raised. Patient transported with oxygen and transport monitor to room 261. [facility] 09-19-2023 Nurse Note Explained to patient [...] when bed available. documented in this encounter [facility] 09-19-2023 History and physical note Images from the original note were not included. History and Physical [facility] Gonzalo Deluca : 1955 AGE 67 y.o. YEARS Note Date 09/19/2023 Primary Care Physician:HERMINIA CASE MD Current Providers as of 09/19/2023 PCP: Herminia Case MD Care Team Provider: Ziyad Menendez MD Care Team Provider: Sally Rocha APRN - NAILING MACHINE OPERATOR Care Team Provider: Kisha Pepe APRN - [place] Referring Provider: not found, starting on TueSep 19, 2023 12:00 AM Admitting Provider: Nickolas Marrero MD, (Active) Attending Provider: Jono Weathers MD, starting on TueSep 19, 2023 4:43 PM, ending on TueSep 19, 2023 8:41 PM (Inactive) Attending Provider: Nickolas Marrero MD, starting on TueSep 19, 2023 6:48 PM (Active) Exterminator RES: Heydi Ceballos MD, starting on TueSep [...] Chest pain COPD (chronic obstructive pulmonary disease) ([facility]) USE OXYGEN 3 L AT NIGHT DDD (degenerative disc disease), cervical Defect, retina, with detachment right DJD (degenerative joint disease), lumbar Emphysema lung ([facility]) Former smoker Hematuria SCHEDULED FOR THE PROCEDURE /SURGERY ON 02/11/2017 Hypokalemia Lung nodules Near syncope 09/19/2023 Osteoporosis Palpitations Pneumonia Recurrent major depression ([facility]) Sciatica Thoracic compression fracture ([facility]) Vitamin D deficiency She is [...] 09/19/2023 468 QTC Interval 09/19/2023 594 P [place] 09/19/2023 25 QRS [place] 09/19/2023 -48 T Wave [place] 09/19/2023 0 DE Interval 09/19/2023 140 Auto WBC 09/19/2023 19.5 [...] QT Interval 468 QTC Interval 594 P [place] 25 QRS [place] -48 T Wave [place] 0 DE Interval 140 Impression Sinus rhythm Inferior infarct, [...] will request orthopedics to see her as [facility] orthopedics has seen her in the past [...] pharmacologic and mechanical contraindicated 09/19/2023 Gonzalo Deluca [id number] Any scheduled follow up appointments Extended Emergency Contact Information Primary Emergency Contact: Karishma Deluca Address: [address] [place] [address] [place] [address] [facility] Mobile Relation: Daughter Secondary Emergency Contact: Jace Deluca Mobile Relation: Son Portions of this note may be electronically transcribed. Please forward a copy of this H&P to the primary care physician. [facility] Work Phone: 09-19-2023 History and physical note Images from the original note were not included. 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 Ceballos MD, starting on TueSep [...] Allergic rhinitis Arthritis Asthma Bronchitis Cancer (CMS/HCC) ([facility]) skin Cervical cancer (CMS/HCC) ([facility]) Chest pain COPD (chronic obstructive pulmonary disease) ([facility]) USE OXYGEN 3 L AT NIGHT DDD (degenerative disc disease), cervical Defect, retina, with detachment right DJD (degenerative joint disease), lumbar Emphysema lung ([facility]) Former smoker Hematuria SCHEDULED FOR THE PROCEDURE /SURGERY ON 02/11/2017 Hypokalemia Lung nodules Near syncope 09/19/2023 Osteoporosis Palpitations Pneumonia Recurrent major depression ([facility]) Sciatica Thoracic compression fracture ([facility]) Vitamin D deficiency She is [...] 09/19/2023 468 QTC Interval 09/19/2023 594 P [place] 09/19/2023 25 QRS [place] 09/19/2023 -48 T Wave [place] 09/19/2023 0 DE Interval 09/19/2023 140 Auto WBC 09/19/2023 19.5 [...] QT Interval 468 QTC Interval 594 P [place] 25 QRS [place] -48 T Wave [place] 0 DE Interval 140 Impression Sinus rhythm Inferior infarct, [...] will request orthopedics to see her as [facility] orthopedics has seen her in the past [...] pharmacologic and mechanical contraindicated 09/19/2023 Gonzalo Deluca [id number] Any scheduled follow up appointments Extended Emergency Contact Information Primary Emergency Contact: Karishma Deluca Address: [address] [place] [address] [place] [address] [facility] Mobile Relation: Daughter Secondary Emergency Contact: Jace Deluca Mobile Relation: Son Portions of this note may be electronically transcribed. Please forward a copy of this H&P to the primary care physician. documented in this encounter [facility] 09-19-2023 Nurse Note Patient arrived from er to room 463 bed 2. Patient is alert and oriented. Realized patient required private room bed coordinator notified. Will be transferred when bed available. [facility] 09-19-2023 Emergency department Note Floor advised of pt coming to floor. VERA Brown 09/19/231945 [facility] 09-19-2023 Emergency department Note Floor advised of pt coming to floor. VERA Brown 09/19/231945 Pt provided with a toni laurie and chicken salad sandwich. VERA Brown 09/19/231939 Pt on 2lpm of oxygen. Pt 89% on room air. Oxygen increased to 3lpm. VERA Brown 09/19/231731 Pt to radiology. VERA Brown 09/19/231710 EMERGENCY DEPARTMENT ENCOUNTER Pt Name: Gonzalo Deluca [...] Allergic rhinitis Arthritis Asthma Bronchitis Cancer (CMS/HCC) ([facility]) skin Cervical cancer (CMS/HCC) ([facility]) Chest pain COPD (chronic obstructive pulmonary disease) ([facility]) USE OXYGEN 3 L AT NIGHT DDD (degenerative disc disease), cervical Defect, retina, with detachment right DJD (degenerative joint disease), lumbar Emphysema lung ([facility]) Former smoker Hematuria SCHEDULED FOR THE PROCEDURE /SURGERY ON 02/11/2017 Hypokalemia Lung nodules Near syncope 09/19/2023 Osteoporosis Palpitations Pneumonia Recurrent major depression ([facility]) Sciatica Thoracic compression fracture ([facility]) Vitamin D deficiency SURGICAL HISTORY [...] Resource Strain: Low Risk (05/20/2023) Received from [facility] Overall Financial Resource Strain (CARDIA) Difficulty of Paying Living Expenses: Not very hard Food Insecurity: No Food Insecurity (05/20/2023) Received from [facility] Hunger Vital Sign Worried About Running Out of Food in the Last Year: Never true Ran Out of Food in the Last Year: Never true Transportation Needs: No Transportation Needs (05/20/2023) Received from [facility] PRAPARE - Transportation Lack of Transportation (Medical): No Lack of Transportation (Non-Medical): No Physical Activity: Inactive (05/20/2023) Received from [facility] Exercise Vital Sign Days of Exercise per Week: 0 days Minutes of Exercise per Session: 0 min Stress: Stress Concern Present (05/20/2023) Received from [facility]ational Health - Occupational Stress Questionnaire Feeling of Stress : To some extent Social Connections: Unknown (05/20/2023) Received from [facility] Social Connection and Isolation Panel [NHANES] Frequency of Communication with Friends and Family: Twice a week Frequency of Social Gatherings with Friends and Family: Patient declined Attends Hinduism Services: Never Active Member of Clubs or Organizations: No Attends Club or Organization Meetings: Patient declined Marital Status: Intimate Partner Violence: Not At Risk (05/21/2022) Humiliation, Afraid, Rape, and Kick questionnaire Fear of Current or Ex-Partner: No Emotionally Abused: No Physically Abused: No Sexually Abused: No Housing Stability: Low Risk (05/20/2023) Received from [facility] Housing Stability Vital Sign Unable to Pay for Housing in the Last Year: No Number of Places Lived in the Last Year: 1 In the last 12 months, was there a time when you did not have a steady place to sleep or slept in a senior care (including now)?: No SCREENINGS PHYSICAL EXAM ED [...] me with my interpretation noted below in [facility]. Refer to [facility] for official interpretation. RADIOLOGY: Refer to [facility] below for my independent interpretation. [...] injuries. Report Dictated on Electronically Signed By: Branod Tejada MD Electronically Signed Date/Time: 09/19/2023 5:55 [...] Culture. Procedure Abnormality Status --------- ------ Complete Urinalysis[[id number]] Please view results for these tests on [...] mL (500 mL IntraVENous New Bag 09/19/23 174) potassium chloride CR (Klor-Con M10) ER tablet [...] Compression fracture of T7 vertebra, initial encounter ([facility]) 6. Compression fracture of T8 vertebra, initial encounter ([facility]) 7. Compression fracture of L1 vertebra, initial encounter ([facility]) DISPOSITION Admit 09/19/2023 06:48:16 PM [...] Ceballos MD Resident 09/19/231907 Emergency Department Encounter [facility] ED Patient: Gonzalo Deluca : 1955 [...] dictating provider for clarification.) Jono Weathers MD [facility] Jono Weathers MD 09/19/231903 documented in this encounter [facility] 09-19-2023 Emergency department Note Pt provided with a toni laurie and chicken salad sandwich. VERA Brown 09/19/23 194 [facility] 09-19-2023 Emergency department Note Pt on 2lpm of oxygen. Pt 89% on room air. Oxygen increased to 3lpm. VERA Brown 09/19/23 173 [facility] 09-19-2023 Emergency department Note Pt to radiology. VERA Brown 09/19/23 171 [facility] 09-19-2023 Physician Emergency department Note EMERGENCY [...] Allergic rhinitis Arthritis Asthma Bronchitis Cancer (CMS/HCC) ([facility]) skin Cervical cancer (CMS/HCC) ([facility]) Chest pain COPD (chronic obstructive pulmonary disease) ([facility]) USE OXYGEN 3 L AT NIGHT DDD (degenerative disc disease), cervical Defect, retina, with detachment right DJD (degenerative joint disease), lumbar Emphysema lung ([facility]) Former smoker Hematuria SCHEDULED FOR THE PROCEDURE /SURGERY ON 02/11/2017 Hypokalemia Lung nodules Near syncope 09/19/2023 Osteoporosis Palpitations Pneumonia Recurrent major depression ([facility]) Sciatica Thoracic compression fracture ([facility]) Vitamin D deficiency SURGICAL HISTORY [...] Resource Strain: Low Risk (05/20/2023) Received from [facility] Overall Financial Resource Strain (CARDIA) Difficulty of Paying Living Expenses: Not very hard Food Insecurity: No Food Insecurity (05/20/2023) Received from [facility] Hunger Vital Sign Worried About Running Out of Food in the Last Year: Never true Ran Out of Food in the Last Year: Never true Transportation Needs: No Transportation Needs (05/20/2023) Received from [facility] PRAPARE - Transportation Lack of Transportation (Medical): No Lack of Transportation (Non-Medical): No Physical Activity: Inactive (05/20/2023) Received from [facility] Exercise Vital Sign Days of Exercise per Week: 0 days Minutes of Exercise per Session: 0 min Stress: Stress Concern Present (05/20/2023) Received from [facility] [facility] - Occupational Stress Questionnaire Feeling of Stress : To some extent Social Connections: Unknown (05/20/2023) Received from [facility] Social Connection and Isolation Panel [NHANES] Frequency of Communication with Friends and Family: Twice a week Frequency of Social Gatherings with Friends and Family: Patient declined Attends Hinduism Services: Never Active Member of Clubs or Organizations: No Attends Club or Organization Meetings: Patient declined Marital Status: Intimate Partner Violence: Not At Risk (05/21/2022) Humiliation, Afraid, Rape, and Kick questionnaire Fear of Current or Ex-Partner: No Emotionally Abused: No Physically Abused: No Sexually Abused: No Housing Stability: Low Risk (05/20/2023) Received from [facility], [facility] Housing Stability Vital Sign Unable to Pay for Housing in the Last Year: No Number of Places Lived in the Last Year: 1 In the last 12 months, was there a time when you did not have a steady place to sleep or slept in a senior care (including now)?: No SCREENINGS PHYSICAL EXAM ED [...] me with my interpretation noted below in [facility]. Refer to [facility] for official interpretation. RADIOLOGY: Refer to [facility] below for my independent interpretation. [...] Culture. Procedure Abnormality Status --------- ------ Complete Urinalysis[[id number]] Please view results for these tests on [...] Compression fracture of T7 vertebra, initial encounter ([facility]) Compression fracture of T8 vertebra, initial encounter ([facility]) Compression fracture of L1 vertebra, initial encounter ([facility]) External records reviewed: Chronic conditions impacting care: Social determinants of health affecting care: Diagnostics independently interpreted by me: As above ED Medications managed: Medications potassium chloride IVPB 10 mEq (10 mEq IntraVENous New Bag 09/19/231820) magnesium sulfate IVPB premix 2,000 mg (2,000 mg IntraVENous New Bag 09/19/231824) sodium chloride 0.9 % bolus 500 mL (500 mL IntraVENous New Bag 09/19/23 174) potassium chloride CR (Klor-Con M10) ER tablet 40 mEq (40 mEq Oral Given 09/19/231822) acetaminophen (Tylenol) tablet 1,000 mg (1,000 mg Oral Given 09/19/23 183) Response to therapies provided: As above Diagnostics & Treatments/Interventions considered: As above Management discussions with other Clinicians: hospitalist PROCEDURES: Unless otherwise noted below, none. Procedures FINAL IMPRESSION 1. Near syncope 2. Closed head injury, initial encounter 3. Fall, initial encounter 4. Compression fracture of T5 vertebra, initial encounter ([facility]) 5. Compression fracture of T7 vertebra, initial encounter ([facility]) 6. Compression fracture of T8 vertebra, initial encounter ([facility]) 7. Compression fracture of L1 vertebra, initial encounter ([facility]) DISPOSITION Admit 09/19/2023 06:48:16 PM [...] Medicine Resident Heydi Ceballos MD Resident 09/19/23 [address] [facility] 09-19-2023 Physician Emergency department Note Emergency Department Encounter [facility] ED Patient: Gonzalo Deluca : 1955 [...] MD [employer] Jono Weathers MD 09/19/23 [address] [employer] Phone: 09-16-2023 Telephone encounter Note Prescription Refill [...] Shay LPN September 16, 2023 10:08 AM [facility] 09-16-2023 Miscellaneous Notes Prescription Refill Information [...] 2023 10:08 AM documented in this encounter [facility] 09-15-2023 Telephone encounter Note Na sent [facility] 09-15-2023 Miscellaneous Notes Na sent Schedule follow up appt with me for chronic pain Pharmacy verified in [facility] Patient has been identified by [...] Silvia Trejo MA documented in this encounter [facility] 09-15-2023 Telephone encounter Note Schedule follow up appt with me for chronic pain [facility] 09-15-2023 Telephone encounter Note Pharmacy verified in [facility] Patient has been identified by [...] 7.9 oz) Please advise. Silvia Trejo MA [facility] 09-14-2023 Telephone encounter Note Prescription Refill [...] Shay LPN September 14, 2023 10:57 AM [facility] 09-14-2023 Miscellaneous Notes Prescription Refill Information [...] 2023 10:57 AM documented in this encounter [facility] 09-08-2023 Note HNO ID: [id number] Author: BARBI GOLDBERG MD Service: ? Author [...] PREDNISONE 10 MG TABLET Barbi Goldberg MD [facility] 09-08-2023 History of Presen t [...] due on 03/21/2023 documented in this encounter [facility] 09-08-2023 Note HNO ID: [id number] Author: TATE WEATHERS MA Service: ? Author Type: Bottle Cleaner Type: Progress Notes Filed: 09/08/2023 16:09 Note Text: Mammogram Screening Never done Colorectal Cancer Screening Never done RSV Vaccine(1 - 1-dose 60+ series) Never done Shingrix Vaccine(2 of 2) due on 12/06/2019 Bone Density Screening due on 2021 Lung Cancer Screening due on 10/14/2022 Covid-19 Vaccine(2022- season) Never done Advance Directive Discussion due on 03/21/2023 [facility] 09-07-2023 Telephone encounter Note LM for patient letting her know we have not received the form from [employer]. Whit Shay LPN [facility] 09-07-2023 Miscellaneous Notes LM for patient letting her know we have not received the form from [employer]. Whit Shay LPN Gonzalo is calling Herminia Case MD today with concern regarding Electronic Communication (FAX from [email or web address] is going to be coming over that needs to be faxed back to them ) Patient has been identified by name and birthdate. Duration of symptoms: N/A Person calling: self daughter: Karishma Call patient at: at home [phone] (home) [phone] (cell) Was an appointment scheduled: No Closing statement: Results or non-symptom based questions: Thank you for calling [facility], your call will be returned within the next business day. Lala Jay documented in this encounter [facility] 09-06-2023 Telephone encounter Note Gonzalo is calling Herminia Case MD today with concern regarding Electronic Communication (FAX from [place] [facility] is going to be coming over that needs to be faxed back to them ) Patient has been identified by name and birthdate. Duration of symptoms: N/A Person calling: self daughter: Karishma Call patient at: at home [phone] (home) [phone] (cell) Was an appointment scheduled: No Closing statement: Results or non-symptom based questions: Thank you for calling [facility], your call will be returned within the next business day. Lala Jay [facility] 08-22-2023 Telephone encounter Note Last appointment: 05/20/23 Next appointment: 08/24/23 Pharmacy verified in [facility]. Refill(s) requested: Requested Prescriptions Pending [...] Order(s) pended. Please advise. Tate Weathers MA, IMMUNOLOGY SPECIALIST [facility] 08-22-2023 Miscellaneous Notes Last appointment: 05/20/23 Next appointment: 08/24/23 Pharmacy verified in [facility]. Refill(s) requested: Requested Prescriptions Pending [...] Order(s) pended. Please advise. Tate Weathers MA, IMMUNOLOGY SPECIALIST documented in this encounter [facility] 08-05-2023 Telephone encounter Note Last appointment: 06/10/23 Next appointment: 08/16/23 Pharmacy verified in [facility]. Refill(s) requested: Requested Prescriptions Pending Prescriptions Disp Refills cyclobenzaprine (FLEXERIL) 5 mg tablet [Pharmacy Med Name: CYCLOBENZAPRINE 5 MG TABLET] 30 tablet 2 Sig: take 1 tablet by mouth twice a day as needed Order(s) pended. Please advise. Whit Shay LPN, IMMUNOLOGY SPECIALIST [facility] 08-05-2023 Miscellaneous Notes Last appointment: 06/10/23 Next appointment: 08/16/23 Pharmacy verified in [facility]. Refill(s) requested: Requested Prescriptions Pending Prescriptions Disp Refills cyclobenzaprine (FLEXERIL) 5 mg tablet [Pharmacy Med Name: CYCLOBENZAPRINE 5 MG TABLET] 30 tablet 2 Sig: take 1 tablet by mouth twice a day as needed Order(s) pended. Please advise. Whit Shay LPN IMMUNOLOGY SPECIALIST documented in this encounter [facility] 07-23-2023 Telephone encounter Note Last appointment: 06/10/23 Next appointment: 08/03/23 Pharmacy verified in [facility]. Refill(s) requested: Requested Prescriptions Pending Prescriptions Disp Refills oxyCODONE-acetaminophen (PERCOCET) 5-325 mg tablet 120 tablet 0 Sig: Take 1 tablet by mouth every 6 hours as needed for pain for up to 30 days. Order(s) pended. Please advise. Whit Shay LPN, IMMUNOLOGY SPECIALIST [facility] 07-23-2023 Miscellaneous Notes Last appointment: 06/10/23 Next appointment: 08/03/23 Pharmacy verified in [facility]. Refill(s) requested: Requested Prescriptions Pending Prescriptions Disp Refills oxyCODONE-acetaminophen (PERCOCET) 5-325 mg tablet 120 tablet 0 Sig: Take 1 tablet by mouth every 6 hours as needed for pain for up to 30 days. Order(s) pended. Please advise. Whit Shay LPN, ELISEO documented in this encounter [facility] 07-20-2023 Telephone encounter Note Pharmacy verified in [facility] Patient has been identified by [...] for: "B12" Please advise. Nicole Sabillon MA [facility] 07-20-2023 Miscellaneous Notes Pharmacy verified in [...] Nicole Sabillon MA documented in this encounter [facility] 07-08-2023 Telephone encounter Note LM for patient to call the office. Whit Shay LPN [facility] 07-08-2023 Miscellaneous Notes LM for patient to call the office. Whit Shay LPN Rx sent for advair which is similar. Received fax from [place], the Fluticasone-Vilanterol 200-25, is not covered by insurance. Please advise. Whit Shay LPN documented in this encounter [facility] 07-08-2023 Telephone encounter Note Rx sent for advair which is similar. [facility] 07-04-2023 Miscellaneous Notes Pharmacy verified in Epic Patient [...] Alejandra Reno MA documented in this encounter [facility] 06-30-2023 Telephone encounter Note Received fax from [facility], the Fluticasone-Vilanterol 200-25, is not covered by insurance. Please advise. Whit Shay LPN [facility] 06-28-2023 Miscellaneous Notes Last appointment: 06/10/23 Next appointment: 07/22/23 Pharmacy verified in [facility]. Refill(s) requested: Requested Prescriptions Pending Prescriptions Disp Refills fluticasone-vilanterol (BREO ELLIPTA) 200-25 mcg/dose inhaler 60 Each 5 Sig: Inhale 1 Inhalation as instructed once daily. Order(s) pended. Please advise. Whit Shay LPN, IMMUNOLOGY SPECIALIST documented in this encounter [facility] 06-27-2023 Miscellaneous Notes Pharmacy verified in [facility] Patient has been identified by [...] Alejandra Reno MA documented in this encounter [facility] 06-24-2023 Miscellaneous Notes Last appointment: 06/10/23 Next appointment: 07/22/23 Pharmacy verified in [facility]. Refill(s) requested: Requested Prescriptions Pending Prescriptions Disp Refills busPIRone (BUSPAR) 15 mg tablet 90 tablet 0 Sig: Take 1 tablet by mouth three times a day. Order(s) pended. Please advise. Rayo Roman MA, IMMUNOLOGY SPECIALIST documented in this encounter [facility] 06-11-2023 Miscellaneous Notes Last appointment: 06/10/23 Next appointment: 07/22/23 Pharmacy verified in [facility]. Refill(s) requested: Requested Prescriptions Pending Prescriptions Disp Refills cyclobenzaprine (FLEXERIL) 5 mg tablet [Pharmacy Med Name: CYCLOBENZAPRINE 5 MG TABLET] 30 tablet 2 Sig: take 1 tablet by mouth twice a day as needed Order(s) pended. Please advise. Whti Shay LPN, IMMUNOLOGY SPECIALIST documented in this encounter [facility] 06-10-2023 History of Presen t illness Narrative VIRTUAL VISIT PROGRESS NOTE This is a virtual visit using [employer] Video Visit. It required patient-provider interaction for the medical decision making as documented below. I have communicated my name and active licensure. The patient's identity and physical location were verified at the time of this visit. Either the patient or their legal agency sales representative has been informed of the [...] Herminia Case MD documented in this encounter [facility] 05-27-2023 Miscellaneous Notes Pharmacy verified in [...] Nicole Sabillon Ma documented in this encounter [facility] 05-26-2023 Miscellaneous Notes Last appointment: 05-20-23 Next appointment: 06-10-23 Pharmacy verified in [facility]. Refill(s) requested: Requested Prescriptions Pending Prescriptions Disp Refills busPIRone (BUSPAR) 15 mg tablet 90 tablet 0 Sig: Take 1 tablet by mouth three times a day. Order(s) pended. Please advise. Evangelina Baltazar MA, IMMUNOLOGY SPECIALIST documented in this encounter [facility] 05-25-2023 Miscellaneous Notes Type of letter/form/fax request - orders Form received from [facility] Placed on MD desk () for completion. Completed form needs to be faxed to [phone]. Route to [place] when form completed for processing documented in this encounter [facility] 05-25-2023 Miscellaneous Notes Request completed and faxed to [phone] with confirmation of receipt. Placed on Whit TRIANA desk for filing Done. Type of letter/form/fax request - Home Health Care Orders Form received from [facility] on 05/18/23 floor and placed on desk () for completion. Completed form needs to be faxed to [phone]. Route to [place] when form completed for processing documented in this encounter [facility] 05-20-2023 History of Presen t illness Narrative VIRTUAL VISIT PROGRESS NOTE This is a virtual visit using [employer] Video Visit. It required patient-provider interaction for the medical decision making as documented below. I have communicated my name and active licensure. The patient's identity and physical location were verified at the time of this visit. Either the patient or their legal agency sales representative has been informed of the [...] Herminia Case MD documented in this encounter [facility] 05-19-2023 Miscellaneous Notes Home care Certification Form 485 received from 05/18/23. For cert dates 05/11/23 to 07/09/23 that were signed on 05/18/23. Recertification Patient's home health 485 form / care plan for stated certification period reviewed and signed. Relevant medical records were reviewed. No changes were indicated documented in this encounter [facility] 05-18-2023 Miscellaneous Notes Request completed and faxed. Done. Type of letter/form/fax request - Home Health Care Orders Form received from [facility] on floor and placed on MD desk () for completion. Completed form needs to be faxed to [phone]. Route to [place] when form completed for processing documented in this encounter [facility] 05-09-2023 Miscellaneous Notes Request completed and faxed. Type of letter/form/fax request - Home Health Care Orders Form received from [facility] on 05/06/23 floor and placed on MD desk () for completion. Completed form needs to be faxed to [phone]. Route to [place] when form completed for processing documented in this encounter [facility] 05-02-2023 History of Presen t illness Narrative Patient presents with: Follow Up HPI: Gonzalo Deluca is a 67 year old female who presents to the office today for follow up. Anxiety - on paxil, switched from cymbalta to paxil. Chronic pain Left hip fracture - 10/2022 Compression fracture 01/2023 Went to rehab , then home right before marshall Back home currently, home nursing PT and [...] Prosthetic Devices, Implants and Grafts, Initial Encounter ([facility]) Pna (Pneumonia) Right Arm Weakness Poor Venous [...] due on 03/21/2023 documented in this encounter [facility] 05-02-2023 Instructions Whit Shay LPN - 05/02/2023 2:26 PM EST [facility] LAB TEST INFORMATION [facility] BUILDING LAB HOURS: Lab is open: 7:30am to 5:00pm - , 7:30am to 4:00pm on Tue and 8am -12pm on Tue. The lab is located in [facility] on the first floor. There is a registration window at the lab, available 7 am to 3 pm Tuesday - Tuesday. If registration is unavailable at the lab, you may register at the patient registration office near the [facility]. SCHEDULING A LAB APPOINTMENT: Laboratory appointments are recommended.Walk ins are still accepted. Call [phone] or schedule via [employer] scheduling ticket. ROUTINE LAB ORDERS 60 days [...] REFILL REQUESTS Request prescription refills through your [employer] account or contact your Pharmacy. My Chart Schedule My Appointment enables you to view your established primary care provider's open schedule and book an appointment online in real-time. This feature is available in internal medicine, family medicine, or pediatrics at any of our [facility] locations and main campus. documented in this encounter [facility] 04-29-2023 Miscellaneous Notes Spoke to Amanda who states she has been seeing patient for a few months for palliative care. Discharged from facility about a month ago Fall and Hip fx Fall with femur fx On continuous O2 3.5L - COPD Clonazepam not reordered when she left facility - provider requesting OV Walking with walker [facility] home health care nurse also seeing pt. OV scheduled Tuesday Gonzalo is a patient of Herminia Case MD today NADEEM Patel from [facility] is calling to speak to the nurse to review medications. She has questions related to her anxiety and respiratory status. She stated it was not urgent but needs to speak to the nurse/provider today. Patient has been identified by name and birthdate. Closing statement: Symptom Call: Thank you for calling [facility], your call is very important. A nurse will call in approximately 2-4 hours during business hours. If this is an emergency, please contact 911. Tiara Jay documented in this encounter [facility] 04-27-2023 Miscellaneous Notes Please review and advise documented in this encounter [facility] 04-27-2023 Telephone encounter Note Patient cancelled 04-27 appointment via [employer] with the following: Reason for Cancellation: Patient: Lack of Transportation" LVM to r/s [facility] 04-27-2023 Miscellaneous Notes Patient cancelled 04-27 appointment via [employer] with the following: Reason for Cancellation: Patient: Lack of Transportation" LVM to r/s Patient cancelled 04-22 appointment via [employer] stating: Reason for Cancellation: Patient: Schedule Conflict" LVM for patient to call back and get r/s documented in this encounter [facility] 04-21-2023 Telephone encounter Note Patient cancelled 04-22 appointment via [employer] stating: Reason for Cancellation: Patient: Schedule Conflict" LVM for patient to call back and get r/s [facility] 04-21-2023 Miscellaneous Notes Request completed and faxed. Type of letter/form/fax request - Home Health Care Orders Form received from [facility] on 04/17/23 floor and placed on MD desk () for completion. Completed form needs to be faxed to [phone]. Route to [place] when form completed for processing documented in this encounter [facility] 03-11-2023 History of Past i llness Narrative Problem Noted Date Diagnosed Date Resolved Date Chronic pain syndrome 03/11/20232022 Moderate malnutrition 01/22/20232022 COPD (chronic obstructive pu lmonary disease) with acute bronchitis (HCC) 02/02/2021 03/09/2023 Obesity, Class I, BMI 30-34.9 12/07/2018 03/11/2023 documented as of this encounter (statuses as of 04/22/2023) [facility]12-22-2023 History of Past illness Narrative* Problem Noted Date Diagnosed Date Resolved Date Chronic pain syndrome 03/11/20232022 Moderate malnutrition 01/22/20232022 COPD (chronic obstructive pu lmonary disease) with acute bronchitis (HCC) 02/02/2021 03/09/2023 Obesity, Class I, BMI 30-34.9 12/07/2018 03/11/2023 documented as of this encounter (statuses as of 04/28/2023) [facility]12-22-2023 History of Past illness Narrative* Problem Noted Date Diagnosed Date Resolved Date Chronic pain syndrome 03/11/20232022 Moderate malnutrition 01/22/20232022 COPD (chronic obstructive pu lmonary disease) with acute bronchitis (HCC) 02/02/2021 03/09/2023 Obesity, Class I, BMI 30-34.9 12/07/2018 03/11/2023 documented as of this encounter (statuses as of 05/03/2023) [facility]12-22-2023 History of Past illness Narrative* Problem Noted Date Diagnosed Date Resolved Date Chronic pain syndrome 03/11/20232022 Moderate malnutrition 01/22/20232022 COPD (chronic obstructive pu lmonary disease) with acute bronchitis (HCC) 02/02/2021 03/09/2023 Obesity, Class I, BMI 30-34.9 12/07/2018 03/11/2023 documented as of this encounter (statuses as of 05/09/2023) [facility]12-22-2023 History of Past illness Narrative* Problem Noted Date Diagnosed Date Resolved Date Chronic pain syndrome 03/11/20232022 Moderate malnutrition 01/22/20232022 COPD (chronic obstructive pu lmonary disease) with acute bronchitis (HCC) 02/02/2021 03/09/2023 Obesity, Class I, BMI 30-34.9 12/07/2018 03/11/2023 documented as of this encounter (statuses as of 05/18/2023) [facility]12-[facility]-20[facility] History of Past illness Narrative* Problem Noted Date Diagnosed Date Resolved Date Chronic pain syndrome 03/11/20232022 Moderate malnutrition 01/22/20232022 COPD (chronic obstructive pu lmonary disease) with acute bronchitis (HCC) 02/02/2021 03/09/2023 Malignant neoplasm of exocervix 11/07/2019 05/20/2023 Obesity, Class I, BMI 30-34.9 12/07/2018 03/11/2023 documented as of this encounter (statuses as of 05/20/2023) [facility]12-[facility] History of Past illness Narrative* Problem Noted Date Diagnosed Date Resolved Date Chronic pain syndrome 03/11/20232022 Moderate malnutrition 01/22/20232022 COPD (chronic obstructive pu lmonary disease) with acute bronchitis (HCC) 02/02/2021 03/09/2023 Malignant neoplasm of exocervix 11/07/2019 05/20/2023 Obesity, Class I, BMI 30-34.9 12/07/2018 03/11/2023 documented as of this encounter (statuses as of 05/21/2023) [facility]12-[facility] History of Past illness Narrative* Problem Noted Date Diagnosed Date Resolved Date Chronic pain syndrome 03/11/20232022 Moderate malnutrition 01/22/20232022 COPD (chronic obstructive pu lmonary disease) with acute bronchitis (HCC) 02/02/2021 03/09/2023 Malignant neoplasm of exocervix 11/07/2019 05/20/2023 Obesity, Class I, BMI 30-34.9 12/07/2018 03/11/2023 documented as of this encounter (statuses as of 05/24/2023) [facility] History of Past illness Narrative* Problem Noted Date Diagnosed Date Resolved Date Chronic pain syndrome 03/11/20232022 Moderate malnutrition 01/22/20232022 COPD (chronic obstructive pu lmonary disease) with acute bronchitis (HCC) 02/02/2021 03/09/2023 Malignant neoplasm of exocervix 11/07/2019 05/20/2023 Obesity, Class I, BMI 30-34.9 12/07/2018 03/11/2023 documented as of this encounter (statuses as of 05/26/2023) [facility] History of Past illness Narrative* Problem Noted Date Diagnosed Date Resolved Date Chronic pain syndrome 03/11/20232022 Moderate malnutrition 01/22/20232022 COPD (chronic obstructive pu lmonary disease) with acute bronchitis (HCC) 02/02/2021 03/09/2023 Malignant neoplasm of exocervix 11/07/2019 05/20/2023 Obesity, Class I, BMI 30-34.9 12/07/2018 03/11/2023 documented as of this encounter (statuses as of 05/26/2023) [facility] History of Past illness Narrative* Problem Noted Date Diagnosed Date Resolved Date Chronic pain syndrome 03/11/20232022 Moderate malnutrition 01/22/20232022 COPD (chronic obstructive pu lmonary disease) with acute bronchitis (HCC) 02/02/2021 03/09/2023 Malignant neoplasm of exocervix 11/07/2019 05/20/2023 Obesity, Class I, BMI 30-34.9 12/07/2018 03/11/2023 documented as of this encounter (statuses as of 05/27/2023) [facility] History of Past illness Narrative* Problem Noted Date Diagnosed Date Resolved Date Chronic pain syndrome 03/11/20232022 Moderate malnutrition 01/22/20232022 COPD (chronic obstructive pu lmonary disease) with acute bronchitis (HCC) 02/02/2021 03/09/2023 Malignant neoplasm of exocervix 11/07/2019 05/20/2023 Obesity, Class I, BMI 30-34.9 12/07/2018 03/11/2023 documented as of this encounter (statuses as of 05/27/2023) [facility]12[facility] History of Past illness Narrative* Problem Noted Date Diagnosed Date Resolved Date Chronic pain syndrome 03/11/20232022 Moderate malnutrition 01/22/20232022 COPD (chronic obstructive pu lmonary disease) with acute bronchitis (HCC) 02/02/2021 03/09/2023 Malignant neoplasm of exocervix 11/07/2019 05/20/2023 Obesity, Class I, BMI 30-34.9 12/07/2018 03/11/2023 documented as of this encounter (statuses as of 06/11/2023) [facility] History of Past illness Narrative* Problem Noted Date Diagnosed Date Resolved Date Chronic pain syndrome 03/11/20232022 Moderate malnutrition 01/22/20232022 COPD (chronic obstructive pu lmonary disease) with acute bronchitis (HCC) 02/02/2021 03/09/2023 Malignant neoplasm of exocervix 11/07/2019 05/20/2023 Obesity, Class I, BMI 30-34.9 12/07/2018 03/11/2023 documented as of this encounter (statuses as of 06/24/2023) [facility] History of Past illness Narrative* Problem Noted Date Diagnosed Date Resolved Date Chronic pain syndrome 03/11/20232022 Moderate malnutrition 01/22/20232022 COPD (chronic obstructive pu lmonary disease) with acute bronchitis (HCC) 02/02/2021 03/09/2023 Malignant neoplasm of exocervix 11/07/2019 3 05/20/2023 Obesity, Class I, BMI 30-34.9 12/07/2018 03/11/2023 documented as of this encounter (statuses as of 06/27/2023) [facility] History of Past illness Narrative* Problem Noted Date Diagnosed Date Resolved Date Chronic pain syndrome 03/11/20232022 Moderate malnutrition 01/22/20232022 COPD (chronic obstructive pu lmonary disease) with acute bronchitis (HCC) 02/02/2021 03/09/2023 Malignant neoplasm of exocervix 11/07/2019 05/20/2023 Obesity, Class I, BMI 30-34.9 12/07/2018 03/11/2023 documented as of this encounter (statuses as of 06/27/2023) [facility]12-[facility] History of Past illness Narrative* Problem Noted Date Diagnosed Date Resolved Date Chronic pain syndrome 03/11/20232022 Moderate malnutrition 01/22/20232022 COPD (chronic obstructive pu lmonary disease) with acute bronchitis (HCC) 02/02/2021 03/09/2023 Malignant neoplasm of exocervix 11/07/2019 05/20/2023 Obesity, Class I, BMI 30-34.9 12/07/2018 03/11/2023 documented as of this encounter (statuses as of 06/30/2023) [facility] History of Past illness Narrative* Problem Noted Date Diagnosed Date Resolved Date Chronic pain syndrome 03/11/20232022 Moderate malnutrition 01/22/20232022 COPD (chronic obstructive pu lmonary disease) with acute bronchitis (HCC) 02/02/2021 03/09/2023 Malignant neoplasm of exocervix 11/07/2019 05/20/2023 Obesity, Class I, BMI 30-34.9 12/07/2018 03/11/2023 documented as of this encounter (statuses as of 07/05/2023) [facility] History of Past illness Narrative* Problem Noted Date Diagnosed Date Resolved Date Chronic pain syndrome 03/11/20232022 Moderate malnutrition 01/22/20232022 COPD (chronic obstructive pu lmonary disease) with acute bronchitis (HCC) 02/02/2021 03/09/2023 Malignant neoplasm of exocervix 11/07/2019 05/20/2023 Obesity, Class I, BMI 30-34.9 12/07/2018 03/11/2023 documented as of this encounter (statuses as of 07/05/2023) [facility]12-[facility] History of Past illness Narrative* Problem Noted Date Diagnosed Date Resolved Date Chronic pain syndrome 03/11/20232022 Moderate malnutrition 01/22/20232022 COPD (chronic obstructive pu lmonary disease) with acute bronchitis (HCC) 02/02/2021 03/09/2023 Malignant neoplasm of exocervix 11/07/2019 05/20/2023 Obesity, Class I, BMI 30-34.9 12/07/2018 03/11/2023 documented as of this encounter (statuses as of 07/08/2023) [facility]12-19-2023 Miscellaneous Notes* Telephone Encounter - Maria Alejandra Reno MA - 03/08/2023 8:34 AM EST Pharmacy verified in Epic Patient has been [...] oz) Not applicable Please advise. Maria Alejandra Rneo MA [facility] Miscellaneous Notes* Care Coordination - Unknown Case Management - 02/18/2023 4:02 PM EST Patient Choice Patient Name: GONZALO DELUCA Date of : 1955 All Providers Sent Referral Name: [facility] Phone: [phone] Address: [address] [place] [id number] * Care Coordination - SATURNINO Garcia - 02/18/2023 2:19 PM EST S/W, follow up Patient discharged to [facility]. Transport set via [facility] at 430p. welder metal fab provided with report number. I did visit patient in room to notify of transport at 430p. Patient noted she will inform her daughter. * Care Coordination - Nidia Barahona - 02/18/2023 1:34 PM EST Discharge med list transmitted to [facility] via Careport per TCC request. 7000 was entered into [employer] for the SNF- Facility is aware. * Care Coordination - SATURNINO Garcia - 02/16/2023 1:48 PM EST S/W, transport Transport sheet placed in patient paper chart for [facility] SNF. * Care Coordination - Jordana Lowe RN - 02/16/2023 11:18 AM EST Images from the original note were not included. Care Management Progress Note Remains in HICU due to lumbar fracture. Bone scan planned for 02/17. Ortho following. [facility] able to accept pt. IMMUNOLOGY SPECIALIST tasked to initiate insurance auth. Await insurance approval. Insurance approval received. Attending, ortho, RN & HUMAN RESOURCE OFFICER notified. Pt to have bone scan tomorrowas [...] 02/15/2023 3:09 PM EST Referral placed to [facility] via Careport per TCC request. Await review and response regarding ability to accept. TCC notified. * Care Coordination - Ping Lazo RN - 02/15/2023 2:44 PM EST Care Managment Initial Assessment Date: 02/15/2023 Patient Name: Gonzalo Deluca : 1955 Patient Information Source of Information: Patient Cognition/Language: WFL - Within Functional Limits Permission given to speak with patient agency sales representative/caregiver as indicated: Yes (Karishmabryanna Deluca dtr [phone]) Confirmation of Payer with patient/family: Yes Payer Name: [facility] Medicare : No Confirmation of Primary Care [...] SNF Discharge Planning Actions: Continue to follow, Jail Facility referral indicated [place] of choice: [place] of choice discussed, Choice list provided (emailed to [email or web address]) Patient's Choice Rights and [employer] and Collaborative Relationships Disclosed as Indicated for Post-Acute Care: Yes Interdisciplinary Team Engagement: PT/OT Social Work Referral for: Additional Information: Patient admitted [facility] for treatment of of Lumbar compression fracture. PT/OT recommends SNF. Spoke with patient over the phone. Explained role. Lives w/ daughter in two story home. Independentwith adls. Daughter and Son drives. +PCP, +RX cov, +DME, home oxygen. Discussed SNF. Emailed list to [email or web address]. She did inform me she was at [facility] and would be agreeable to go back there. IMMUNOLOGY SPECIALIST tasked to make referral to [facility]. Did explained will need to confirm bedavailability and obtain insurance authorization. She demonstrates understanding. DCP: SNF, referral to [facility]. Other choices pending. Ping Lazo RN * Home Care - Deanna Romero LPN - 02/14/2023 8:50 AM EST Patient is currently active with [facility]. The patients current certification period will on 03/28/23. The patient is currently receiving PT services through the agency. Business Specialist to continue to follow. documented in this [facility]12-01-2023 Note* Care Coordination - Unknown Case Management - 02/18/2023 4:02 PM EST Patient Choice Patient Name: GONZALO DELUCA Date of : 1955 All Providers Sent [facility]: [facility] Phone: [phone] Address: [address] [place] [address] [place] [id number] Note* Care Coordination - Unknown Case Management - 02/18/2023 4:02 PM EST Patient Choice Patient Name: GONZALO DELUCA Date of : 1955 All Providers Sent Referral Name: [facility] Phone: [phone] Address: [address] [place] [address] [address] [id number] Note* Care Coordination - SATURNINO Garcia - 02/18/2023 2:19 PM EST S/W, follow up Patient discharged to [facility]. Transport set via [facility] at 430p. welder metal fab provided with report number. I did visit patient in room to notify of transport at 430p. Patient noted she will inform her daughter. [place] [id number] Note* Care Coordination - SATURNINO Garcia - 02/18/2023 2:19 PM EST S/W, follow up Patient discharged to [facility]. Transport set via [facility] at 430p. welder metal fab provided with report number. I did visit patient in room to notify of transport at 430p. Patient noted she will inform her daughter. [place] [id number] Note* Care Coordination - Nidia Barahona - 02/18/2023 1:34 PM EST Discharge med list transmitted to [facility] via Careport per TCC request. 7000 was entered into [employer] for the [facility]- [facility] aware. [id number]* Care Coordination - Nidia Barahona - 02/18/2023 1:34 PM EST Discharge med list transmitted to [facility] via Careport per TCC request. 7000 was entered into [employer] for the [facility]- Facility is aware. [id number] Hospital Discharge instructions* Discharge Instr - Activity* Earlene Echavarria MD - 02/18/2023 1:10 PM EST As tolerated * Discharge Instr - Diet* Earelne Echavarria MD - 02/18/2023 1:11 PM EST Dietary Orders (From admission, onward) Start Ordered 11/27/23 0041 Adult diet Regular Diet effective now Question: [...] Information Primary Emergency Contact: Karishma Deluca Address: [address] [place] [address] Mobile Relation: Daughter Secondary Emergency Contact: [...] (135 lb) Mental Status: {SHAMA Patient Mental Status:21647} IV Access: SHAMA IV Access: None Nursing Mobility/ADLs: Walking Minimal assistance Transfer Minimal assistance Bathing Minimal assistance Dressing Minimal assistance Toileting Minimal assistance Feeding Independent Electronics Manufacturer Independent Med Delivery no Wound Care Documentation [...] to Facility/ Agency [facility] Care Address: [address] [place] [address] Dialysis Facility (if applicable) Name: Address: Dialysis Schedule: Phone: Fax: Cribbing Setter/Contract Technical Writer signature: ICIAN SECTION Prognosis: fair Condition at [...] BMP in 3 days documented in this [facility]12-01-2023 History of Present illness Narrative* Yesenia Salas RCP - 02/18/2023 11:45 AM EST [facility] Respiratory Care Department Progress Note As [...] from the original note were not included. [phone]: Please page me ([phone]) for patient care issues. [phone]: Please page [facility] Hospitalist for any issues. Subjective: Admit Date: 02/13/2023 PCP: HERMINIA CASE MD Room#: 232-08/232-08 Norma Deluca is a 67 y.o. female who presents with Lumbar compression fracture, closed, initial encounter ([facility]) Interval History: Claims that back [...] Information Primary Emergency Contact: Karishma Deluca Address: [address] [place] [address] [place] [address] [facility] Mobile Relation: Daughter Secondary Emergency Contact: Jace Deluca Mobile Relation: Son Advance Directive: Full Code Discharge planning: TBD Earlene Echavarria MD Division of Hospitalist Medicine Inpatient Medical Services/[facility] * Oseas Lima, PT - 02/17/2023 11:39 AM EST Images from the original note were not included. PHYSICAL THERAPY [facility] Treatment Note Name/MRN: Gonzalo Deluca ([id number]) Date of : 1955 Age: 67 y.o. Room/Bed: / A Visit #: 2 out of 7 [...] Mobility Raw Score (No Stairs) : 15 [facility] Goals Patient Stated Goal: Patient states [...] other than deg changes. LSO ordered from [facility] Can be discharged when medically [...] Medical Center Treatment Note Name/MRN: Gonzalo Deluca ([id number]) Date of : 1955 Age: 67 y.o. [...] from the original note were not included. [phone]: Please page me ([phone]) for patient care issues. [phone]: Please page [facility] Hospitalist for any issues. Subjective: Admit Date: 02/13/2023 PCP: HERMINIA CASE MD Room#: 232-08/232-08 Norma Deluca is a 67 y.o. female who presents with Lumbar compression fracture, closed, initial encounter (HCC) Interval History: Claims that back pain is [...] , waiting for brace and SNF certification [facility] [] Low, [x] Moderate,[] High Patient's risk as above Total time spent (which include face to face and non face to face encounters) : minutes Toxic drug monitoring/narrow therapeutic index drug monitoring : # Drug name : Lovenox # Route administered : Subcutaneous # Method of monitoring : Daily Extended Emergency Contact Information Primary Emergency Contact: Karishma Deluca Address: [address] [place] [address] [place] [address] [facility] Mobile Relation: Daughter Secondary Emergency Contact: Jace Deluca Mobile Relation: Son Advance Directive: Full Code Discharge planning: TBD Earlene Echavarria MD Division of Hospitalist Medicine Inpatient Medical Services/[facility] * Betsey Gresham MD - 02/16/2023 7:51 [...] from the original note were not included. [phone]: Please page me ([phone]) for patient care issues. [phone]: Please page [facility] Hospitalist for any issues. Subjective: Admit Date: 02/13/2023 PCP: HERMINIA CASE MD Room#: 232-08/232-08 Norma Deluca is a 67 y.o. female who presents with Lumbar compression fracture, closed, initial encounter ([facility]) Interval History: Claims that back [...] Information Primary Emergency Contact: Karishma Deluca Address: [address] [place] [address] [place] [id number] [facility] Mobile Relation: Daughter Secondary Emergency Contact: Jace Deluca Mobile Relation: Son Advance Directive: Full Code Discharge planning: TBD Earlene Echavarria MD Division of Hospitalist Medicine Inpatient Medical Services/[facility] * Marian Mendosa, PT - 02/15/2023 11:13 AM EST Images from the original note were not included. PHYSICAL THERAPY [facility] Treatment Note Name/MRN: Gonzalo Deluca ([id number]) Date of : 1955 Age: 67 y.o. [...] from the original note were not included. [phone]: Please page me ([phone]) for patient care issues. [phone]: Please page [facility] Hospitalist for any issues. Subjective: Admit Date: 02/13/2023 PCP: HERMINIA CASE MD Room#: 232-08/232-08 Norma Deluca is a 67 y.o. female who presents with Lumbar compression fracture, closed, initial encounter ([facility]) Interval History: No overnight issues. [...] Information Primary Emergency Contact: Karishma Deluca Address: [address] [place] [address] [address] [place], [id number] Mobile Relation: Daughter Secondary Emergency Contact: Jace Deluca Mobile Relation: Son Advance Directive: Full Code Discharge planning: TBD Earlene Echavarria MD Division of Hospitalist Medicine Inpatient Medical Services/[facility] * Catalina Rojo OT - 02/14/2023 10:11 AM EST Images from the original note were not included. OCCUPATIONAL THERAPY [facility] Initial Evaluation Name/MRN: Gonzalo Deluca ([id number]) Evaluation Date: 02/14/2023 Date of : 1955 [...] Allergic rhinitis Arthritis Asthma Bronchitis Cancer (CMS/HCC) ([facility]) skin Cervical cancer (CMS/HCC) ([facility]) Chest pain COPD (chronic obstructive pulmonary disease) ([facility]) USE OXYGEN 3 L AT NIGHT DDD (degenerative disc disease), cervical Defect, retina, with detachment right DJD (degenerative joint disease), lumbar Emphysema lung ([facility]) Former smoker Hematuria SCHEDULED FOR THE PROCEDURE /SURGERY ON 02/11/2017 Hypokalemia Lung nodules Osteoporosis Palpitations Pneumonia Recurrent major depression ([facility]) Sciatica Thoracic compression fracture ([facility]) Vitamin D deficiency Past Surgical [...] Noted Lumbar compression fracture, closed, initial encounter ([facility]) 02/13/2023 Nondisplaced fracture of neck of left femur ([facility]) 11/06/2022 Other specified complication of vascular prosthetic devices, implants and grafts, initial encounter([facility]) 08/06/2021 Acute exacerbation of chronic obstructive pulmonary disease ([facility]) 04/12/2018 Poor venous access 12/19/2019 H/O: CVA (cerebrovascular accident) 12/14/2019 Malignant neoplasm of exocervix ([facility]) 11/07/2019 S/P hysterectomy 11/07/2019 PNA (pneumonia) 08/02/2019 Leukocytosis 04/13/2018 Moderate malnutrition ([facility]) ([facility]) 04/13/2018 Shortness of breath 04/13/2018 DDD (degenerative disc disease), cervical 04/12/2018 Recurrent major depression ([facility]) 04/12/2018 Chronic back pain 04/10/2017 COPD (chronic obstructive pulmonary disease) ([facility]) 04/10/2017 Pulmonary nodule 04/10/2017 Sciatica [...] Responsibilities: Independent Receives Help From: Family Active Band Saw Marker: No Prior Level of Function ADL Assistance: [...] Daily Activity Raw Score: 19 ADL Inpatient [facility] G-Code Modifier: CK Plan Pt would benefit [...] supervision is transferred to a [facility] Therapy Services Occupational Therapist. Goals and/or treatment plan was established in collaboration with patient/family/other representatives. * Jennifer Esparza, PT - 02/14/2023 8:36 AM EST Images from the original note were not included. PHYSICAL THERAPY [facility] Initial Evaluation Name/MRN: Gonzalo Deluca ([id number]) Evaluation Date: 02/14/2023 Date of : 1955 Admission Date: 02/13/2023 6:59 PM Age: 67 y.o. Room[facility]Bed: [facility] A Discharge Recommendation: SNF and Continue to [...] Allergic rhinitis Arthritis Asthma Bronchitis Cancer (CMS/HCC) ([facility]) skin Cervical cancer (CMS/HCC) ([facility]) Chest pain COPD (chronic obstructive pulmonary disease) ([facility]) USE OXYGEN 3 L AT NIGHT DDD (degenerative disc disease), cervical Defect, retina, with detachment right DJD (degenerative joint disease), lumbar Emphysema lung ([facility]) Former smoker Hematuria SCHEDULED FOR THE PROCEDURE /SURGERY ON 02/11/2017 Hypokalemia Lung nodules Osteoporosis Palpitations Pneumonia Recurrent major depression ([facility]) Sciatica Thoracic compression fracture ([facility]) Vitamin D deficiency Past Surgical History: Past Surgical History: Procedure Laterality Date CYSTOSCOPY 01/12/2017 OFFICE PROCEDURE CYSTOSCOPY 02/11/2017 C&P bladder biopsy EYE SURGERY detached retina 1994 HYSTERECTOMY 11/06/2019 ABDOMINAL RADICAL HYSTERECTOMY WITH BSO AND PELVIC LYMPH; [facility] OTHER SURGICAL HISTORY Left 12/19/2019 Med Port POWER Regular Size OTHER SURGICAL HISTORY Left 11/07/2022 Percutaneous skeltal fixation femoral fracture TUBAL LIGATION 1992 Admission Diagnosis: Patient Active Problem List Diagnosis Date Noted Lumbar compression fracture, closed, initial encounter ([facility]) 02/13/2023 Nondisplaced fracture of neck of left femur ([facility]) 11/06/2022 Other specified complication of vascular prosthetic devices, implants and grafts, initial encounter([facility]) 08/06/2021 Acute exacerbation of chronic obstructive pulmonary disease ([facility]) 04/12/2018 Poor venous access 12/19/2019 H/O: CVA (cerebrovascular accident) 12/14/2019 Malignant neoplasm of exocervix ([facility]) 11/07/2019 S/P hysterectomy 11/07/2019 PNA (pneumonia) 08/02/2019 Leukocytosis 04/13/2018 Moderate malnutrition ([facility]) ([facility]) 04/13/2018 Shortness of breath 04/13/2018 [...] Responsibilities: Independent Receives Help From: Family Active Band Saw Marker: No Prior Level of Function ADL Assistance: [...] supervision is transferred to a [facility] Therapy Services Physical Therapist. Goals and/or treatment plan was established in collaboration with patient/family/other representatives. documented in this [facility]11-30-2023 Nurse Note* ARMIN DE OLIVEIRA - 02/17/2023 6:09 PM EST Order for brace faxed to [employer] along with face sheet by Secretary Diaz [place] [id number] Nurse Note* ARMIN DE OLIVEIRA - 02/17/2023 6:09 PM EST Order for brace faxed to [employer] along with face sheet by Secretary Diaz documented in this [place] [id number] Note* Care Coordination - SATURNINO Garcia - 02/16/2023 1:48 PM EST S/W, transport Transport sheet placed in patient paper chart for [facility] SNF. [id number] Note* Care Coordination - SATURNINO Garcia - 02/16/2023 1:48 PM EST S/W, transport Transport sheet placed in patient paper chart for [facility] SNF. [facility]11-29-2023 Note* Care Coordination - Jordana Lowe RN - 02/16/2023 11:18 AM EST Images from the original note were not included. Care Management Progress Note Remains in HICU due to lumbar fracture. Bone scan planned for 02/17. Ortho following. [facility] able to accept pt. IMMUNOLOGY SPECIALIST tasked to initiate insurance auth. Await insurance approval. Insurance approval received. Attending, faustina, RN & HUMAN RESOURCE OFFICER notified. Pt to have bone scan tomorrowas needs to be completed 3 d after acute fracture to make sure can be seen on scan. Discharge Milestones and Delays Expected Date/Time: 02/18/[address] discharge order Complete med reconciliation Case mgmt discharge readiness Clinical Stability Diagnsotic Workup Expected Discharge History Expected Date/Time Set By Reviewed At 02/18/2023 SATURNINO aGrcia 02/16/2023 10:12 AM 02/18/2023 SATURNINO Garcia 02/15/2023 10:33 AM 02/16/2023 Lorenzo Orozco MD 02/14/2023 9:52 AM 02/16/2023 Lorenzo Orozco MD 02/13/2023 9:24 PM Length of Stay (Days): 3 GMLOS: No GMLOS Documented [facility]11-29-2023 Note* Care Coordination - Jordana Lowe RN - 02/16/2023 11:18 AM EST Images from the original note were not included. Care Management Progress Note Remains in HICU due to lumbar fracture. Bone scan planned for 02/17. Ortho following. [facility] able to accept pt. IMMUNOLOGY SPECIALIST tasked to initiate insurance auth. Await insurance approval. Insurance approval received. Attending, ortho, RN & HUMAN RESOURCE OFFICER notified. Pt to have bone scan tomorrowas [...] 3 GMLOS: No GMLOS Documented [facility]11-28-2023 Note* Care Coordination - Nidia Barahona - 02/15/2023 3:09 PM EST Referral placed to [facility] via Careport per TCC request. Await review and response regarding ability to accept. TCC notified. [facility]11-28-2023 Note* Care Coordination - Nidia Barahona - 02/15/2023 3:09 PM EST Referral placed to SNF- [facility] via Careport per TCC request. Await review and response regarding ability to accept. TCC notified. [id number]* Care Coordination - Ping Lazo RN - 02/15/2023 2:44 PM EST Care Managment Initial Assessment Date: 02/15/2023 Patient Name: Gonzalo Deluca : 1955 Patient Information Source of Information: Patient Cognition/Language: WFL - Within Functional Limits Permission given to speak with patient agency sales representative/caregiver as indicated: Yes (Karishma Deluca dtr [phone]) Confirmation of Payer with patient/family: Yes Payer [...] SNF Discharge Planning Actions: Continue to follow, Jail Facility referral indicated [place] of choice: [place] of choice discussed, Choice list provided (emailed to [email or web address]) Patient's Choice Rights and [employer] and Collaborative Relationships Disclosed as Indicated for Post-Acute Care: Yes Interdisciplinary Team Engagement: PT/OT Social Work Referral for: Additional Information: Patient admitted to [facility] for treatment of of Lumbar compression fracture. PT/OT recommends SNF. Spoke with patient over the phone. Explained role. Lives w/ daughter in two story home. Independentwith adls. Daughter and Son drives. +PCP, +RX cov, +DME, home oxygen. Discussed SNF. Emailed list to [email or web address]. She did inform me she was at [facility] and would be agreeable to go back there. IMMUNOLOGY SPECIALIST tasked to make referral to [facility]. Did explained will need to confirm bedavailability and obtain insurance authorization. She demonstrates understanding. DCP: SNF, referral to [facility]. Other choices pending. Ping Lazo RN [id number] Note* Care Coordination - Ping Lazo RN - 02/15/2023 2:44 PM EST Care Managment Initial Assessment Date: 02/15/2023 Patient Name: Gonzalo Deluca : 1955 Patient Information Source of Information: Patient Cognition/Language: WFL - Within Functional Limits Permission given to speak with patient agency sales representative/caregiver as indicated: Yes (Karishma Deluca dtr [phone]) Confirmation of Payer with patient/family: Yes Payer Name: [facility] Medicare [place]: No Confirmation of Primary Care Physician: Confirmed [...] SNF Discharge Planning Actions: Continue to follow, Jail Facility referral indicated [place] of choice: [place] of choice discussed, Choice list provided (emailed to [email or web address]) Patient's Choice Rights and [employer] and Collaborative Relationships Disclosed as Indicated for Post-Acute Care: Yes Interdisciplinary Team Engagement: PT/OT Social Work Referral for: Additional Information: Patient admitted to [facility] for treatment of of Lumbar compression fracture. PT/OT recommends SNF. Spoke with patient over the phone. Explained role. Lives w/ daughter in two story home. Independentwith adls. Daughter and Son drives. +PCP, +RX cov, +DME, home oxygen. Discussed SNF. Emailed list to [email or web address]. She did inform me she was at [facility] and would be agreeable to go back there. IMMUNOLOGY SPECIALIST tasked to make referral to [facility]. Did explained will need to confirm bedavailability and obtain insurance authorization. She demonstrates understanding. DCP: SNF, referral to [facility]. Other choices pending. Ping Lazo RN [facility] [id number] Emergency department Note* Joaquina Guevara RN - 02/14/2023 9:20 AM EST Report called to Jameson WHITEHEAD at this time. Joaquina Guevara RN 02/14/23 0920 [place] [id number] Emergency department Note* Joaquina Guevara RN - [...] Allergic rhinitis Arthritis Asthma Bronchitis Cancer (CMS/HCC) ([facility]) skin Cervical cancer (CMS/HCC) ([facility]) Chest pain COPD (chronic obstructive pulmonary disease) ([facility]) USE OXYGEN 3 L AT NIGHT DDD (degenerative disc disease), cervical Defect, retina, with detachment right DJD (degenerative joint disease), lumbar Emphysema lung ([facility]) Former smoker Hematuria SCHEDULED FOR THE PROCEDURE /SURGERY ON 02/11/2017 Hypokalemia Lung nodules Osteoporosis Palpitations Pneumonia Recurrent major depression ([facility]) Sciatica Thoracic compression fracture ([facility]) Vitamin D deficiency SURGICAL HISTORY Past Surgical History: Procedure Laterality Date CYSTOSCOPY 01/12/2017 OFFICE PROCEDURE CYSTOSCOPY 02/11/2017 C&P bladder biopsy EYE SURGERY detached retina 1994 HYSTERECTOMY 11/06/2019 ABDOMINAL RADICAL HYSTERECTOMY WITH BSO AND PELVIC LYMPH; [facility] OTHER SURGICAL HISTORY Left 12/19/2019 Med [...] Expected time: Means of arrival: Comments: Jean Anahi Harvey RN 02/13/23 1859 * Nancy Salas RN - 02/13/2023 6:59 PM EST Bed: 16 Expected date: Expected time: Means of arrival: Comments: Room 2 Nancy Salas RN 02/13/232203 documented in this [facility]11-27-2023 Note* Home Care - Deanna Romero LPN - 02/14/2023 8:50 AM EST Patient is currently active with [facility]. The patients current certification period will on 03/28/23. The patient is currently receiving PT services through the agency. Business Specialist to continue to follow. [facility] [id number] Note* Home Care - Deanna Romero LPN - 02/14/2023 8:50 AM EST Patient is currently active with [facility]. The patients current certification period will on 03/28/23. The patient is currently receiving PT services through the agency. Business Specialist to continue to follow. [facility] [id number] Emergency department Note* Joaquina Guevara RN - 02/14/2023 8:27 AM EST Attempted Nurse to nurse via telephone at this time, Jameson states they will call back. Joaquina Guevara RN 02/14/23 0828 [facility]11-27-2023 Consult note* Betsey Gresham MD - 02/14/2023 [...] Chest pain COPD (chronic obstructive pulmonary disease) ([facility]) USE OXYGEN 3 L AT NIGHT DDD (degenerative disc disease), cervical Defect, retina, with detachment right DJD (degenerative joint disease), lumbar Emphysema lung ([facility]) Former smoker Hematuria SCHEDULED FOR THE PROCEDURE /SURGERY ON 02/11/2017 Hypokalemia Lung nodules Osteoporosis Palpitations Pneumonia Recurrent major depression ([facility]CC) Sciatica Thoracic compression fracture ([facility]) Vitamin D deficiency Past Surgical [...] we will follow with you. [facility]11-27-2023 Consult note* Betsey Gresham MD - 02/14/2023 7:49 [facility] Inpatient consult to orthopaedic [...] test Allergic rhinitis Arthritis Asthma Bronchitis Cancer ([facility]/HCC) ([facility]) skin Cervical cancer (CMS/HCC) ([facility]) Chest pain COPD (chronic obstructive pulmonary disease) ([facility]) USE OXYGEN 3 L AT NIGHT DDD (degenerative disc disease), cervical Defect, retina, with detachment right DJD (degenerative joint disease), lumbar Emphysema lung ([facility]) Former smoker Hematuria SCHEDULED FOR THE PROCEDURE /SURGERY ON 02/11/2017 Hypokalemia Lung nodules Osteoporosis Palpitations Pneumonia Recurrent major depression ([facility]) Sciatica Thoracic compression fracture ([facility]) Vitamin D deficiency Past Surgical [...] compression deformities, new from 2020, post fall 2020 24 January 2023. 2. L3 compression deformity without [...] will follow with you. documented in this [facility]11-26-2023 History and physical note* Lauren Serna MD - 02/13/2023 11:12 PM EST Images from the original note were not included. History and Physical [facility] Gonzalo Deluca : 1955 AGE 67 [...] Attending Provider: Lauren Serna MD, starting on Sun Feb 13, 2023 9:24 PM (Active) Chief Complaint: [...] SpO2 98% BMI 22.47 kg/m Pulse Ox: [id number]: 98 % Min: 98 % Max: 98 [...] QT Interval 395 QTC Interval 473 P [place] 69 QRS [place] -35 T Wave [place] -12 DE Interval 152 Impression Sinus rhythm Inferior infarct, [...] x-ray left shoulder is negative for fracture [facility] orthopedics has seen her in the past seeing her transfer controller for the For now I will continue [...] to due risk bleed/procedure 02/13/2023 Gonzalo Deluca [id number] Any scheduled follow up appointments Future Appointments Date Time Provider Department Center 03/09/2023 11:15 AM Freddy Person MD [facility] None 04/22/2023 1:00 PM Sally Rocha APRN - [facility] CULINARY WORKER None Extended Emergency Contact Information Primary Emergency Contact: Karishma Deluca Address: [address] [place] [address] [place] [address] [facility] Mobile Relation: Daughter Secondary Emergency Contact: Jace Deluca Mobile Relation: Son Portions of this note may be electronically transcribed. Please forward a copy of this H&P to the primary care physician. [employer] [employer] Work Phone: [phone]) 270-868711-26-2023 History and physical note* Lauren Serna MD - 02/13/2023 11:12 PM EST Images from the original note were not included. History and Physical [facility] Gonzalo Deluca : 1955 AGE 67 [...] quality n RESP: Abdominal Pain n : SOB/ARDIAN chronically Nausea n Hematuria n Cough n [...] Allergic rhinitis Arthritis Asthma Bronchitis Cancer (CMS/HCC) ([facility]) skin Cervical cancer (CMS/HCC) ([facility]) Chest pain COPD (chronic obstructive pulmonary disease) ([facility]) USE OXYGEN 3 L AT NIGHT DDD (degenerative disc disease), cervical Defect, retina, with detachment right DJD (degenerative joint disease), lumbar Emphysema lung ([facility]) Former smoker Hematuria SCHEDULED FOR THE PROCEDURE /SURGERY ON 02/11/2017 Hypokalemia Lung nodules Osteoporosis Palpitations Pneumonia Recurrent major depression ([facility]) Sciatica Thoracic compression fracture ([facility]) Vitamin D deficiency She is [...] SpO2 98% BMI 22.47 kg/m Pulse Ox: [id number]: 98 % Min: 98 % Max: 98 [...] QT Interval 395 QTC Interval 473 P [place] 69 QRS [place] -35 T Wave [place] -12 [place] Interval 152 Impression Sinus rhythm Inferior infarct, [...] x-ray left shoulder is negative for fracture [facility] orthopedics has seen her in the past seeing her transfer controller for the For now I will continue [...] to due risk bleed/procedure 02/13/2023 Gonzalo Deluca [id number] Any scheduled follow up appointments Future Appointments Date Time Provider Department Center 03/09/2023 11:15 AM Freddy Person MD [facility] None 04/22/2023 1:00 PM Sally Rocha APRN - [facility] CULINARY WORKER None Extended Emergency Contact Information Primary Emergency Contact: Karishma Deluca Address: [address] [place] [address] [place] [address] [facility] Mobile Relation: Daughter Secondary Emergency Contact: Jace Deluca Mobile Relation: Son Portions of this note may be electronically transcribed. Please forward a copy of this H&P to the primary care physician. documented in this [facility]11-26-2023 Emergency department Note* Anahi Harvey RN - 02/13/2023 6:59 PM EST Bed: 02 Expected date: Expected time: Means of arrival: Comments: Jean Harvey RN 02/13/23 5068 [id number] Emergency department Note* Nancy Salas RN - 02/13/2023 6:59 PM EST Bed: 16 Expected date: Expected time: Means of arrival: Comments: Room 2 Nancy Salas RN 02/13/232203 [facility]11-26-2023 Emergency department Triage note* VERA Harper - 02/13/2023 6:59 PM EST Complaint of fall today injuring lower back and left shoulder. [place] [id number] Physician Emergency department Note* Lorenzo Orozco MD [...] Allergic rhinitis Arthritis Asthma Bronchitis Cancer (CMS/HCC) ([facility]) skin Cervical cancer (CMS/HCC) ([facility]) Chest pain COPD (chronic obstructive pulmonary disease) ([facility]) USE OXYGEN 3 L AT NIGHT DDD (degenerative disc disease), cervical Defect, retina, with detachment right DJD (degenerative joint disease), lumbar Emphysema lung ([facility]) Former smoker Hematuria SCHEDULED FOR THE PROCEDURE /SURGERY ON 02/11/2017 Hypokalemia Lung nodules Osteoporosis Palpitations Pneumonia Recurrent major depression (HCC) Sciatica Thoracic compression fracture ([facility]) Vitamin D deficiency SURGICAL HISTORY [...] disposition. ED Course as of 02/17/23 0847 Obdulia Feb 13, [id number] XR shoulder 2+ views [...] Medicine Provider Lorenzo Orozco MD 02/17/23 0849 [id number] Miscellaneous Notes* Telephone Encounter - Whit Shay LPN - 02/08/2023 9:57 AM EST Request completed and faxed. * Telephone Encounter - Herminia Case MD - 02/08/2023 9:48 AM EST Done. * Telephone Encounter - Whit Shay LPN - 02/07/2023 2:59 PM EST Type of letter/form/fax request - Home Health Care Orders Plan of Care Certification Period- 01/28/23 to 03/28/[address] [facility] and placed on MD desk () for completion. Completed form needs to be faxed to [phone]. Route to [place] when form completed for processing [facility] Miscellaneous Notes* Telephone Encounter - Tate Weathers MA - 02/07/2023 2:00 PM EST Last appointment: 01/14/23 Next appointment: 03/11/23 Pharmacy verified in [facility]. Refill(s) requested: Requested Prescriptions Pending Prescriptions Disp Refills QUEtiapine (SEROQUEL) 100 mg tablet [Pharmacy Med Name: QUETIAPINE FUMARATE 100 MG TAB] 180 tablet 1 Sig: TAKE 2 TABLETS BY MOUTH AT BEDTIME NEEDED Order(s) pended. Please advise. Tate Weathers MA, [facility] documented in this [facility]11-[facility]-2023 History of Present illness Narrative* Agustina Romero MA - 02/01/2023 11:01 AM EST POPULATION HEALTH NAVIGATION OUTREACH Action/FYI Called and left a message to call [phone], to discuss health maintenance items that are due. Sent My Chart message. Patient Identified by Name and : NO Outreach Outcome/Action Unable to reach patient: Left message MyChart message sent Did you use a PCP flex slot to schedule this appointment? N/A Reason for Outreach Care Gap or Scheduling/Wellness visits Payer: Payor: [facility] MEDICARE / Plan: [facility] DUAL COMPLETE HMO POS SNP / Product [...] 01, 2023 11:02 AM documented in [facility]11-14-2023 Miscellaneous Notes* Telephone Encounter - Whit Shay LPN - 02/01/2023 9:07 AM EST Request completed and faxed. * Telephone Encounter - Whit Shay LPN - 01/31/2023 3:36 PM EST Type of letter/form/fax request - Home Health Care Orders Form received from [facility] on 01/28/23 floor and placed on MD desk () for completion. Completed form needs to be faxed to [phone]. Route to [place] when form completed for processing documented [facility]11-[facility]-2023 History of Present illness Narrative* Jo Chen MA - 01/27/2023 12:21 PM EST POPULATION HEALTH NAVIGATION OUTREACH Action/FYI Unable to leave Mychart message sent Mammogram Screening Never done Colorectal Cancer Screening Never done Patient Identified by Name and : NO Outreach Outcome/Action Unable to reach patient: Phone number not valid / voicemail full [employer] message sent Did you use a PCP flex slot to schedule this appointment? N/A Reason for Outreach Care Gap or Scheduling/Wellness visits Payer: Payor: [facility] MEDICARE / Plan: [facility] DUAL COMPLETE HMO POS SNP / Product [...] 27, 2023 12:21 PM documented in this encounterC[facility]11-06-2023 Miscellaneous Notes* Telephone Encounter - Whit Shay LPN - 01/24/2023 3:12 PM EST Request completed and faxed. * Telephone Encounter - Herminia Case MD - 01/24/2023 3:06 PM EST Done. * Telephone Encounter - Whit Shay LPN - 01/24/2023 2:42 PM EST Type of letter/form/fax request - Home Health Care Orders Form received from [facility] on 01/21/23 floor and placed on MD desk () for completion. Completed form needs to be faxed to [phone]. Route to [place] when form completed for processing documented in this encounterCleveland Clinic [facility] Hospital11-03-2023 Miscellaneous Notes* Telephone Encounter - Rayo Roman Ma - 01/21/2023 1:45 PM EDT Type of letter/form/fax request - Home Health Care Orders Form received from [facility] on 01/21/23 floor and placed on MD desk () for completion. Completed form needs to be faxed to [phone]. Route to [place] when form completed for processing documented in this [facility]10-30-2023 Miscellaneous Notes* Telephone Encounter - Whit Shay LPN - 01/17/2023 6:06 PM EDT Request completed and faxed. * Telephone Encounter - Whit Shay LPN - 01/17/2023 10:35 AM EDT Type of letter/form/fax request - Home Health Care Orders Form received from [facility] on 01/15/23 floor and placed on MD desk () for completion. Completed form needs to be faxed to [phone]. Route to [place] when form completed for processing documented in this [facility]10-27-2023 Instructions* Patient Instructions* Herminia Case MD [...] continue 60 mg duloxetine. documented in this [facility]10-27-2023 History of Present illness Narrative* Herminia [...] Vaccine(1) due on 2022 documented in this encounterCleveland [facility]10-20-2023 Miscellaneous Notes* Telephone Encounter - Melva Juárez PA-C - 01/07/2023 3:21 PM EDT Noted. Melva Juárez PA-C * Telephone Encounter - Teressa Macario - 01/07/2023 1:21 PM EDT Lake with [facility] calling to update that patient cancelled her appointment today becauseshe is not feeling well. Any questions, please call Lake @ [phone] documented in this encounterCleveland Clinic [facility] Hospital10-18-2023 Miscellaneous Notes* Telephone Encounter - Melva Juárez PA-C - 01/05/2023 5:12 PM EDT Noted. Melva Juárez PA-C * Telephone Encounter - Rayo Roman Ma - 01/05/2023 4:32 PM EDT FYI * Telephone Encounter - Teressa Macario - 01/05/2023 12:17 PM EDT Dianne from [facility] calling today to update that patient missed appointment today because she does not feel well. Patient is asking to hold off therapy until Tuesday. documented in this encounterCleveland Clinic [facility]10-12-2023 Miscellaneous Notes* Telephone Encounter - Whit Shay LPN - 12/30/2022 11:28 AM EDT Request completed and faxed. * Telephone Encounter - Herminia Case MD - 12/30/2022 11:18 AM EDT Done. * Telephone Encounter - Whit Shay LPN - 12/30/2022 9:28 AM EDT Type of letter/form/fax request - Home Health Care Orders Form received from [facility] on 12/29/22 floor and placed on MD desk () for completion. Completed form needs to be faxed to [phone]. Route to [place] when form completed for processing documented in this encounterCleveland Clinic [facility] Hospital10-11-2023 Miscellaneous Notes* Telephone Encounter - Whit Shay LPN - 12/29/2022 8:43 AM EDT Request completed and faxed. * Telephone Encounter - Whit Shay LPN - 12/28/2022 2:00 PM EDT Type of letter/form/fax request - Home Health Care Orders Form received from [facility] on 12/27/22 floor and placed on MD desk () for completion. Completed form needs to be faxed to [phone]. Route to [place] when form completed for processing documented in this encounterCleveland Clinic [facility] Hospital10-09-2023 Miscellaneous Notes* Telephone Encounter - Whit Shay LPN - 12/27/2022 3:41 PM EDT Request completed and faxed. * Telephone Encounter - Whit Shay LPN - 12/22/2022 8:26 AM EDT Type of letter/form/fax request - Home Health Care Orders Form received from [facility] on 12/21/22 floor and placed on MD desk () for completion. Completed form needs to be faxed to [phone]. Route to [place] when form completed for processing documented in this encounterCleveland Clinic [facility] Hospital09-28-2023 Miscellaneous Notes* Telephone Encounter - Parul Sanderson OCCA - 12/16/2022 2:11 PM EDT Last appointment: 09/15/22 Next appointment: 01/14/23 Pharmacy verified in [facility]. Refill(s) requested: Requested Prescriptions Pending Prescriptions Disp Refills oxyCODONE-acetaminophen (PERCOCET) 5-325 mg tablet 134 tablet 0 Sig: Take 1 tablet by mouth every 4 hours as needed for pain for up to 30 days. Order(s) pended. Please advise,thank you. Parul GOMES December 16, 2022 2:12 PM documented in this encounterCleveland Clinic [facility]on Hospital09-23-2023 Miscellaneous Notes* Telephone Encounter - Whit Shay LPN - 12/11/2022 8:37 AM EDT Home care Certification Form 485 received from [facility]. For cert dates 11/29/22 to 01/27/23 that were signed on 12/07/22. Recertification Patient's home health 485 form / care plan for stated certification period reviewed and signed. Relevant medical records were reviewed. No changes were indicated documented in this encounterCleveland Clinic Avon Hospital09-22-2023 Miscellaneous Notes* Telephone Encounter - Cayden Acevedo - 12/10/2022 3:31 PM EDT Last appointment: 09.15.2022 Next appointment: 01.14.2023 Pharmacy verified in [place]. Refill(s) requested: Requested Prescriptions Pending Prescriptions Disp Refills alendronate (FOSAMAX) 70 mg tablet [Pharmacy Med Name: ALENDRONATE SODIUM 70 MG TAB] 12 tablet 3 Sig: TAKE 1 TABLET BY MOUTH ONE TIME A WEEK. Order(s) pended. Please advise. Cayden Acevedo CMA documented in this encounterCleveland Clinic [facility] Hospital09-21-2023 Miscellaneous Notes* Telephone Encounter - Whit Shay LPN - 12/09/2022 2:57 PM EDT Request completed and faxed. * Telephone Encounter - Herminia Case MD - 12/09/2022 2:49 PM EDT Done. * Telephone Encounter - Whit Shay LPN - 12/09/2022 2:16 PM EDT Type of letter/form/fax request - Home Health Care Orders Form received from [facility] on 12/07/22 floor and placed on MD desk () for completion. Completed form needs to be faxed to [phone]. Route to [place] when form completed for processing documented in this encounterCleveland Clinic [facility] Hospital09-21-2023 History of Present illness Narrative* Neil Ennis Silvia - 12/09/2022 10:45 AM EDT Spoke with patient. Patient states that she will complete it and send it in. documented in this encounterCleveland Clinic [facility] Hospital09-19-2023 Miscellaneous Notes* Telephone Encounter - Whit Shay LPN - 12/07/2022 4:19 PM EDT Request completed and faxed. * Telephone Encounter - Herminia Case MD - 12/07/2022 4:01 PM EDT Done. * Telephone Encounter - Whit Shay LPN - 12/07/2022 8:50 AM EDT Type of letter/form/fax request - Home Health Care Orders Form received from [facility] on 12/03/22 floor and placed on desk () for completion. Completed form needs to be faxed to [phone]. Route to [place] when form completed for processing documented in this encounterCleveland Clinic [facility] Hospital09-12-2023 Miscellaneous Notes* Telephone Encounter - Whit Shay LPN - 11/30/2022 9:33 AM EDT Called Leola from [facility] and relayed message below. She verbalized understanding. Whit Shay LPN * Telephone Encounter - Herminia Case MD - 11/29/2022 7:19 PM EDT yes * Telephone Encounter - Jessica Castro - 11/29/2022 4:41 PM EDT Leola Villanueva from [facility] is calling to confirm that Dr. Case will follow patient for home health care. Please call back to [phone] documented in this encounterCleveland Clinic [facility] Hospital09-05-2023 Miscellaneous Notes* Telephone Encounter - Simran Prasad Ma - 11/23/2022 7:49 PM EDT Date of last office visit : 09/15/2022 Date of next office visit : 01/14/2023 Pharmacy verified in [place]. Refill(s) requested: Requested Prescriptions Pending Prescriptions Disp Refills SPIRIVA RESPIMAT 2.5 mcg/actuation inhaler [Pharmacy Med Name: SPIRIVA RESPIMAT 2.5 MCG INH] 3 Sig: INHALE 2 PUFFS BY MOUTH ONCE DAILY DIRECTED Order(s) pended. Please advise. Simran Prasad Ma, CMA documented in this encounterCleveland Clinic [facility]on Hospital09-01-2023 Miscellaneous Notes* Telephone Encounter - Estee [...] advise. Estee Amor LPN documented in this encounterCleveland Clinic Avon Hospital08-31-2023 Miscellaneous Notes* Telephone Encounter - Madison Ceja - 11/18/2022 1:04 PM EDT Patient scheduled for sooner appointment * Telephone Encounter - Herminia Case MD - 11/18/2022 12:50 PM EDT Needs sooner appt for pain med refills. * Telephone Encounter - Parul Sanderson OCCA - 11/17/2022 12:54 PM EDT Last appointment: 09/15/22 Next appointment: 03/17/23 Pharmacy verified in [facility]. Refill(s) requested: Requested Prescriptions Pending Prescriptions Disp Refills oxyCODONE-acetaminophen (PERCOCET) 5-325 mg tablet 134 tablet 0 Sig: Take 1 tablet by mouth every 4 hours as needed for pain for up to 30 days. Order(s) pended. Please advise,thank you. Parul GOMES November 17, 2022 12:55 PM documented in this encounterCleveland Clinic [facility] Hospital08-28-2023 Miscellaneous Notes* Telephone Encounter - Maria Alejandra Reno MA - 11/15/2022 1:29 PM EDT Pharmacy verified in [facility] Patient has been identified by [...] Maria Alejandra Reno MA documented in this encounterCleveland Clinic [facility]on Hospital08-21-2023 Note* Care Coordination - SATURNINO Garcia - 11/08/2022 2:29 PM EDT S/W, follow up Patient discharged to [facility]. Transport set via [facility] at 430p. 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 I did visit patient in room to notify. Patient and myself did notify daughter karishma via speaker phone of transport this evening. [facility] HospitalAzttgm26-01-8675 Note* Care Coordination - SATURNINO Garcia - 11/08/2022 2:29 PM EDT S/W, follow up Patient discharged to [facility]. Transport set via [facility] at 430p. 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 I did visit patient in room to notify. Patient and myself did notify daughter karishma via speaker phone of transport this evening. [facility] HospitalSrarft50-16-7564 Miscellaneous Notes* Care Coordination - SATURNINO Garcia - 11/08/2022 2:29 PM EDT S/W, follow up Patient discharged to [facility]. Transport set via [facility] at 430p. 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 I did visit patient in room to notify. Patient and myself did notify daughter karishma via speaker phone of transport this evening. * Care Coordination - Unknown Case Management - 11/08/2022 1:57 PM EDT Patient Choice Patient Name: GONZALO DELUCA Date of : 1955 All Providers Sent Referral Name: [facility] Phone: [phone] Address: [address] [place] [address] * Care Coordination - Phillip Gurrola RN - 11/08/2022 11:20 AM EDT Tasked IMMUNOLOGY SPECIALIST to submit for auth for [facility]. . * Care Coordination - Phillip Gurrola RN - 11/08/2022 6:59 AM EDT Images from the original note were not included. Care Management Progress Note Awaiting therapy evals and recommendations. Per careport. [facility] is able to accept. Will need insurance [...] Isaac LPN - 11/07/2022 4:39 PM EDT Business Specialist following case for Discharge Needs. * Care Coordination - Phillip Gurrola RN - 11/07/2022 4:20 PM EDT Care Managment Initial Assessment Date: 11/07/2022 Patient Name: Gonzalo Deluca : 1955 Patient Information Source of Information: Patient Name/Contact Information: KARISHMA DELUCA [phone] [facility] JACE DELUCA SON [phone] Cognition/Language: WFL - Within Functional Limits Permission given to speak with patient agency sales representative/caregiver as indicated: Yes Confirmation of Payer with patient/family: Yes Payer Name: [facility] DUAL COMPLETE [place]: No Confirmation of Primary Care Physician: Confirmed [...] Prescription Coverage: Yes Pharmacy Used: [facility] [place] Medication Management: Prescription pick-up Who assists with [...] Plan Patient expects to be discharged to: PRISON FACILITY Discharge Planning Actions: Jail Facility referral indicated [place] of choice: [place] of choice discussed, Choice list provided Patient's [...] would like to go to facility in [place] where her daughter's friend works-[facility] [facility] and if fa cility is in network with patient's [facility]. Did instruct patient to choose 3 other facilities in case there is no bed available at [facility]. Will have home care follow peripherally should [...] femoral neck fracture Surgeon: Andres Ventura MD Group Exercise Manager: Jono HARRIS Anesthesia: General Estimate blood loss: [...] the shift include Safety documented in this encounterSTogus VA Medical CenterMhiweg86-10-2513 Note* Care Coordination - Unknown Case Management - 11/08/2022 1:57 PM EDT Patient Choice Patient Name: GONZALO DELUCA Date of : 1955 All Providers Sent Referral Name: [facility] Phone: [phone] Address: [address] [place] [address] [facility] HospitalVlgpqv23-21-3907 Note* Care Coordination - Unknown Case Management - 11/08/2022 1:57 PM EDT Patient Choice Patient Name: GONZALO DELUCA Date of : 1955 All Providers Sent Referral Name: [facility] Phone: [phone] Address: [address] [place], [place] [id number] Abe [id number] Hospital Discharge instructions* Discharge Instr - SHAMA* [...] BSO AND PELVIC LYMPH; 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 Minimal assistance Med Delivery no Wound Care [...] Score: @READMISSIONRISKDETAILS@ Discharging to Facility/ Agency Name: [facility] Address:[address] [place] [address] Phone:[phone] Fax: Dialysis Facility (if applicable) Name: Address: Dialysis Schedule: Phone: Fax: Cribbing Setter/Contract Technical Writer signature: ICIAN SECTION Prognosis: excellent Condition at [...] in H&P PHYSICIAN SIGNATURE: documented in this [facility]08-21-2023 Hospital course Narrative* Dave Whipple DO - [...] Complexity: follow up within 7-14 calendar days (79872) [x] Severe Complexity: follow up within 7 calendar days (06977) Follow up Testing, Pending results or Referrals [...] DO Division of Hospitalist Medicine Inpatient Medical Services/[facility] 11/08/2022, 1:31 PM Total time Spent on Discharge: 21 minutes documented in this [facility]08-21-2023 History of Present illness Narrative* Dave Whipple DO - 11/08/2022 1:00 PM EDT Images from the original note were not included. Hospitalist Progress Note 11/08/2022 [phone]: Please page me ([phone]) for patient care issues. [phone]: Please page [facility] night Hospitalist for any issues. Subjective: Admit Date: 11/06/2022 PCP: HERMINIA CASE MD Room#: B4453/B4453 A Interval History: No overnight issues. Denies [...] respiratory failure Patient is in 2-3L via UT at baseline No acute exacerbation Resume home [...] DO Division of Hospitalist Medicine Inpatient Medical Services/[facility] PAGER: Epic chat * Betsey Gresham MD [...] 11/08/2022 10:19 AM EDT Occupational Therapy Facility/Department: [facility] Occupational Therapy Initial Evaluation NAME: Gonzalo [...] intertrochanteric fracture of left femur, initial encounter ([facility]). has a past medical history of Abnormal stress test, Allergic rhinitis, Arthritis, Asthma, Bronchitis, Cancer ([facility]/HCC) ([facility]), Cervical cancer (CMS/HCC) ([facility]), Chest pain, COPD (chronic obstructive pulmonary disease) ([facility]), DDD (degenerative disc disease), cervical, Defect, retina, with detachment, DJD (degenerative joint disease), lumbar, Emphysema lung ([facility]), Former smoker, Hematuria, Hypokalemia, Lung nodules, Osteoporosis, Palpitations, Pneumonia, Recurrent major depression ([facility]), Sciatica, Thoracic compression fracture ([facility]), and Vitamin D deficiency. She has no past medical history of Blood circulation, collateral, Chronic kidney disease, Clotting disorder (CMS/HCC) ([facility]), Disease of blood and blood forming organ, GERD (gastroesophageal reflux disease), Liver disease, Movement disorder, Other disorders of kidney and ureter in diseases classified elsewhere, Seizures ([facility]), or Syncope and collapse. has [...] Individual Co-treatment Time In 820 Time Out 33 (co eval with PT) Minutes 12 POC supervision transferred to rehab service department occupational therapist. Amy Brambila OT * Oseas King PT - 11/08/2022 9:45 AM EDT Physical Therapy Facility/Department: [facility] Physical Therapy Initial Evaluation NAME: Gonzalo [...] fixation with Dr. Ventura, is WBAT Exam: [facility] Clinical Presentation: Pt admitted 11/06 with [...] intertrochanteric fracture of left femur, initial encounter ([facility]). has a past medical history of Abnormal stress test, Allergic rhinitis, Arthritis, Asthma, Bronchitis, Cancer (CMS/HCC) ([facility]), Cervical cancer (CMS/HCC) ([facility]), Chest pain, COPD (chronic obstructive pulmonary disease) ([facility]), DDD (degenerative disc disease), cervical, Defect, retina, with detachment, DJD (degenerative joint disease), lumbar, Emphysema lung ([facility]), Former smoker, Hematuria, Hypokalemia, Lung nodules, Osteoporosis, Palpitations, Pneumonia, Recurrent major depression ([facility]), Sciatica, Thoracic compression fracture ([facility]), and Vitamin D deficiency. She has no past medical history of Blood circulation, collateral, Chronic kidney disease, Clotting disorder (CMS/HCC) ([facility]), Disease of blood and blood forming organ, GERD (gastroesophageal reflux disease), Liver disease, Movement disorder, Other disorders of kidney and ureter in diseases classified elsewhere, Seizures (HCC), or Syncope and collapse. has a [...] were not included. Hospitalist Progress Note 11/07/2022 [phone]: Please page me ([phone]) for patient care issues. [phone]: Please page [facility] Hospitalist for any issues. Subjective: [...] respiratory failure Patient is in 2-3L via UT at baseline No acute exacerbation Resume home [...] Relation: Child Dave Whipple DO [facility] In[facility] Medical Services/[facility] PAGER: Epic chat documented in this encounterSTogus VA Medical CenterTimnfd13-10-3067 Note* Care Coordination - Phillip Gurrola RN - 11/08/2022 11:20 AM EDT Tasked [facility] to submit for auth for [facility] [facility]. . [facility] HospitalAjeexa76-30-9749 Note* Care Coordination - Phillip Gurrola RN - 11/08/2022 11:20 AM EDT Tasked IMMUNOLOGY SPECIALIST to submit for auth for [facility]. . [facility] HospitalLmgdoi17-71-0540 Nurse Note* Austyn Bee RN - 11/08/2022 10:58 AM EDT Pt. found with vape in bed. When asking pt. about using the vape, pt stated, "I have been using this since I've been here" Patient educated on no smoking/vaping policy. Vape removed and placed in chart box. Protective services notified. Dr. Whipple notified. See orders. [place] [id number] Nurse Note* Austyn Bee RN - 11/08/2022 10:58 AM EDT Pt. found with vape in bed. When asking pt. about using the vape, pt stated, "I have been using this since I've been here" Patient educated on no smoking/vaping policy. Vape removed and placed in chart box. Protective services notified. Dr. Whipple notified. See orders. documented in this encounterSTogus VA Medical CenterHapmiz44-34-3392 Miscellaneous Notes* Telephone Encounter - Whit Shay LPN - 11/08/2022 8:17 AM EDT Medication is pended. Last visit: 09/15/22 Next visit: 03/17/23 documented in this encounterCleveland Clinic [facility]08-21-2023 Note* Care Coordination - Phillip Gurrola RN - 11/08/2022 6:59 AM EDT Images from the original note were not included. Care Management Progress Note Awaiting therapy evals and recommendations. Per careport. [facility] is able to accept. Will need insurance [...] Mccann DO 11/06/2022 4:18 PM 11/08/2022 Austyn Mccann DO 11/06/2022 3:22 PM Length of Stay (Days): 2 GMLOS: No GMLOS Documented . [facility] HospitalWuwglc85-82-5149 Note* Care Coordination - Phillip Gurrola RN - 11/08/2022 6:59 AM EDT Images from the original note were not included. Care Management Progress Note Awaiting therapy evals and recommendations. Per homar. [facility] is able to accept. Will need insurance [...] (Days): 2 GMLOS: No GMLOS Documented . [facility] HospitalKmslkt83-49-8373 Plan of care note* Care Plan - Tona Barroso RN - 11/07/2022 9:03 PM EDT The patient is Moderately Stable - Low risk of patient condition declining or worsening The patient's goals for the shift include "Pain control and rest." The clinical goals for the shift include Safety [facility] HospitalBsjxtr69-67-0285 Note* Home Care - Rosa Elena Isaac LPN - 11/07/2022 4:39 PM EDT Business Specialist following case for Discharge Needs. [address]xdceu77-90-9309 Note* Home Care - Rosa Elena Isaac LPN - 11/07/2022 4:39 PM EDT Business Specialist following case for Discharge Needs. [facility] HospitalTsjmgj02-01-3904 Note* Care Coordination - Phillip Gurrola RN - 11/07/2022 4:20 PM EDT Care Managment Initial Assessment Date: 11/07/2022 Patient Name: Gonzalo Deluca : 1955 Patient Information Source of Information: Patient Name/Contact Information: KARISHMA DELUCA [phone] [employer] JACE DELUCA SON [phone] Cognition/Language: WFL - Within Functional Limits Permission given to speak with patient agency sales representative/caregiver as indicated: Yes Confirmation of Payer with patient/family: Yes Payer Name: [facility] DUAL COMPLETE [place]: No Confirmation of Primary Care Physician: Confirmed [...] Daily Living Prescription Coverage: Yes Pharmacy Used: [facility] [place] Medication Management: Prescription pick-up Who assists with [...] Plan Patient expects to be discharged to: PRISON FACILITY Discharge Planning Actions: Jail Facility referral indicated [place] of choice: [place] of choice discussed, Choice list provided Patient's [...] would like to go to facility in [place] where her daughter's friend works-[facility] [address] [facility]. Will [address] referral in [facility] to determine if bed is available and if fa jonnathan is in network with patient's [facility]. Did instruct patient to choose 3 other facilities in case there is no bed available at [facility]. Will have home care follow peripherally should therapy recommend home with hhc. Tentative discharge plan is home with hhc vs snf when medically stable/accepting facility and auth obtained. Phillip Gurrola RN [facility] [id number] Note* Care Coordination - Phillip Gurrola RN - 11/07/2022 4:20 PM EDT Care Managment Initial Assessment Date: 11/07/2022 Patient Name: Gonzalo Deluca : 1955 Patient Information Source of Information: Patient Name/Contact Information: KARISHMA DELUCA [phone] BRENDON DELUCA SON [phone] Cognition/Language: WFL - Within Functional Limits Permission given to speak with patient agency sales representative/caregiver as indicated: Yes Confirmation of Payer with patient/family: Yes Payer Name: [facility] DUAL COMPLETE : No Confirmation of Primary [...] Prescription Coverage: Yes Pharmacy Used[facility] [place] Medication Management: Prescription pick-up Who assists with [...] Plan Patient expects to be discharged to: PRISON FACILITY Discharge Planning Actions: Jail Facility referral indicated [place] of choice: [place] of choice discussed, Choice list provided Patient's [...] would like to go to facility in [place] where her daughter's friend works-[facility] [address] referral in [facility] to determine if bed is available and if fa jonnathan is in network with patient's [facility]. Did instruct patient to choose 3 other facilities in case there is no bed available at [facility]. Will have home care follow peripherally should therapy recommend home with hhc. Tentative discharge plan is home with hhc vs snf when medically stable/accepting facility and auth obtained. Phillip Gurrola RN T [facility] [id number] Note* Op Note - Andres Ventura MD - 11/07/2022 8:14 AM EDT Preoperative diagnosis: Left nondisplaced valgus impacted subcapital femoral neck fracture Postoperative diagnosis: Same Procedure: Percutaneous cannulated screw fixation left femoral neck fracture Surgeon: Andres Ventura MD Group Exercise Manager: Jono HARRIS Anesthesia: General Estimate blood loss: [...] was taken to recovery in stable condition. [facility]08-20-2023 Note* Op Note - Andres Ventura MD - 11/07/2022 8:14 AM EDT Preoperative diagnosis: Left nondisplaced valgus impacted subcapital femoral neck fracture Postoperative diagnosis: Same Procedure: Percutaneous cannulated screw fixation left femoral neck fracture Surgeon: Andres Ventura MD Group Exercise Manager: Jono HARRIS Anesthesia: General Estimate blood loss: [...] was taken to recovery in stable condition. [facility] [id number] Plan of care note* Care Plan - Tona Barroso RN - 11/06/2022 11:24 PM EDT The patient is Moderately Stable - Low risk of patient condition declining or worsening The patient's goals for the shift include "Pain control and rest." The clinical goals for the shift include Safety [facility] [id number] Consult note* Andres Ventura MD - 11/06/2022 [...] the holding area to obtain informed consent. T [facility] HospitalIktiob09-76-4156 Consult note* Andres Ventura MD - 11/06/2022 [...] to obtain informed consent. documented in this [facility]08-19-2023 Emergency department Note* Gwen Solorzano RN - 11/06/2022 4:06 PM EDT Spoke with patient about which medications she has taken today, patient states that she take all medications nightly. Change medications to be given nightly. Gwen Solorzano RN 11/06/22 1606 [facility] HospitalFjhktx64-39-5669 Emergency department Note* Gwen Solorzano RN - 11/06/2022 4:06 PM EDT Spoke with patient about which medications she has taken today, patient states that she take all medications nightly. Change medications to be given nightly. Gwen Solorzano RN 11/06/22 1608 * VERA Kraft - 11/06/2022 1:02 PM EDT Guided Karishma back VERA Kraft 11/06/22 1302 * VERA Kraft - 11/06/2022 12:57 PM EDT Introduced myself as pt liaison and explaiined role and provided support to daughter Karishma in lobby , pt arrived via EMS. VERA Kraft [...] major depression (HCC) Sciatica Thoracic compression fracture ([facility]) Vitamin D deficiency SURGICAL HISTORY [...] COPD. I Austyn Mccann DO am the cardio clinician of record. PROCEDURES: Unless otherwise noted below, none Procedures FINAL IMPRESSION 1. Closed displaced intertrochanteric fracture of left femur, initial encounter ([facility]) DISPOSITION Admit 11/06/2022 03:22:00 PM [...] Verdugo RN 11/06/22 1250 documented in this [facility]08-19-2023 History and physical note* Dave Whipple DO [...] and Asthma, HLD, anxiety/depression. who presents to [facility] on 11/06/2022 with chief complaint of [...] Allergic rhinitis Arthritis Asthma Bronchitis Cancer (CMS/HCC) ([facility]) skin Cervical cancer (CMS/HCC) ([facility]) Chest pain COPD (chronic obstructive pulmonary disease) ([facility]) USE OXYGEN 3 L AT NIGHT DDD (degenerative disc disease), cervical Defect, retina, with detachment right DJD (degenerative joint disease), lumbar Emphysema lung ([facility]) Former smoker Hematuria SCHEDULED FOR THE PROCEDURE /SURGERY ON 02/11/2017 Hypokalemia Lung nodules Osteoporosis Palpitations Pneumonia Recurrent major depression ([facility]) Sciatica Thoracic compression fracture ([facility]) Vitamin D deficiency Past Surgical History: Past Surgical History: Procedure Laterality Date CYSTOSCOPY 01/12/2017 OFFICE PROCEDURE CYSTOSCOPY 02/11/2017 C&P bladder biopsy EYE SURGERY detached retina 1994 HYSTERECTOMY 11/06/2019 ABDOMINAL RADICAL HYSTERECTOMY WITH BSO AND PELVIC LYMPH; [facility] OTHER SURGICAL HISTORY Left 12/19/2019 Med Port [...] respiratory failure Patient is in 2-3L via UT at baseline No acute exacerbation Resume home [...] H&P to the patient's PCP. Thank you. [facility] [id number] History and physical note* Dave Whipple DO [...] and Asthma, HLD, anxiety/depression. who presents to [facility] on 11/06/2022 with chief complaint of [...] Allergic rhinitis Arthritis Asthma Bronchitis Cancer (CMS/HCC) ([facility]) skin Cervical cancer (CMS/HCC) ([facility]) Chest pain COPD (chronic obstructive pulmonary disease) ([facility]) USE OXYGEN 3 L AT NIGHT DDD (degenerative disc disease), cervical Defect, retina, with detachment right DJD (degenerative joint disease), lumbar Emphysema lung ([facility]) Former smoker Hematuria SCHEDULED FOR THE PROCEDURE /SURGERY ON 02/11/2017 Hypokalemia Lung nodules Osteoporosis Palpitations Pneumonia Recurrent major depression ([facility]) Sciatica Thoracic compression fracture ([facility]) Vitamin D deficiency Past Surgical History: Past Surgical History: Procedure Laterality Date CYSTOSCOPY 01/12/2017 OFFICE PROCEDURE CYSTOSCOPY 02/11/2017 C&P bladder biopsy EYE SURGERY detached retina 1994 HYSTERECTOMY 11/06/2019 ABDOMINAL RADICAL HYSTERECTOMY WITH BSO AND PELVIC LYMPH; DR. ZIYAD MENENDEZ [facility] OTHER SURGICAL HISTORY Left 12/19/2019 Med [...] patient's PCP. Thank you. documented in this [facility]08-19-2023 Emergency department Note* VERA Kraft - 11/06/2022 1:02 PM EDT Guided Karishma back VERA Kraft 11/06/22 1302 [facility] HospitalNhafiu91-28-3276 Emergency department Note* VERA Kraft - 11/06/2022 12:57 PM EDT Introduced myself as pt liaison and explaiined role and provided support to daughter Karishma in [facility] , pt arrived via EMS. VERA Kraft 11/06/22 1258 [facility] HospitalYxuaie56-13-8621 Emergency department Note* Shelley Verdugo RN - 11/06/2022 12:49 PM EDT Bed: 04 Expected date: Expected time: Means of arrival: Comments: Jean 67/F Fall with L hip pain Shelley Verdugo RN 11/06/22 1250 [facility] HospitalHwoosl00-01-7978 Emergency department Triage note* Gwen Solorzano RN - 11/06/2022 12:49 PM EDT Patient presents to the ED via EMS. Patient had a mechanical fall in her room due to tripped over her feet. Patient denies hitting head. Patient states she has balance issues at baseline and uses assistance to walk. Patient is resting comfortably with family at bedside. [facility] HospitalVcwmcq02-81-7244 Physician Emergency department Note* Austyn Mccann DO [...] test Allergic rhinitis Arthritis Asthma Bronchitis Cancer ([facility]) ([facility]) skin Cervical cancer (CMS/HCC) ([facility]) Chest pain COPD (chronic obstructive pulmonary disease) ([facility]) USE OXYGEN 3 L AT NIGHT DDD (degenerative disc disease), cervical Defect, retina, with detachment right DJD (degenerative joint disease), lumbar Emphysema lung ([facility]) Former smoker Hematuria SCHEDULED FOR THE PROCEDURE /SURGERY ON 02/11/2017 Hypokalemia Lung nodules Osteoporosis Palpitations Pneumonia Recurrent major depression ([facility]) Sciatica Thoracic compression fracture ([facility]) Vitamin D deficiency SURGICAL HISTORY [...] COPD. I Austyn Mccann DO am the cardio clinician of record. PROCEDURES: Unless otherwise noted below, none Procedures FINAL IMPRESSION 1. Closed displaced intertrochanteric fracture of left femur, initial encounter ([facility]) DISPOSITION Admit 11/06/2022 03:22:00 PM [...] Austyn Mccann DO 11/06/22 1523 [facility] [id number] Telephone encounter Note* Telephone Encounter - DB Kohli CNP - 10/27/2022 11:01 AM EDT With normal HPV and Pap I left a message encouraged patient to call back with any questions or concerns [facility] [employer] Work Phone: [phone]) 310-707308-09-2023 Miscellaneous Notes* Telephone Encounter - DB Kohli CNP - 10/27/2022 11:01 AM EDT With normal HPV and Pap I left a message encouraged patient to call back with any questions or concerns documented in this encounterSTogus [facility] Medical CenterSplfhz91-17-6187 Miscellaneous Notes* Telephone Encounter - Whit Shay [...] Whit Shay LPN, CMA [facility]-2023 Miscellaneous Notes* Telephone Encounter - Whit [...] Whit Shay LPN, CMA documented in this encounterC[facility]08-02-2023 History of Present illness Narrative* DB Kohli CNP - 10/20/2022 2:00 PM EDT @LOGOIMAGE@ Chief Complaint Patient presents with Follow-up Pt has no concerns HISTORY OF THE PRESENT ILLNESS: Gonzalo Deluca is a 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 Gonzalo Linaresnorma Ferris Yosi is a 64 y.o. with a [...] recognition. 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 documented in this [facility]06-28-2023 History of Present illness Narrative* Melva Sandoval PA-C - 09/15/2022 2:46 PM EDT Gonzalo Deluca is a 66 year old female here today for routine follow up. COPD: Lungs feel junky. Increased sob since air quality became poor. +productive cough. Requesting prednisone and antibiotic. Has appt with spider assembler in [place] in September. Declines antitrypsin blood draw. Using [...] BONE DENSITY Never done documented in this encounterC[facility]05-12-2023 Miscellaneous Notes* Telephone Encounter - Silvia Trejo Ma - 07/30/2022 11:26 AM EDT Pharmacy verified in Epic Patient has [...] advise. Silvia Trejo Ma documented in this encounterC[facility]05-09-2023 Miscellaneous Notes* Telephone Encounter - Whit Shay LPN - 07/27/2022 3:24 PM EDT Last appointment: 06/03/22 Next appointment: 09/03/22 Pharmacy verified in [facility]. Refill(s) requested: Requested Prescriptions Pending [...] Whit Shay LPN, CMA documented in this encounterC[facility]04-14-2023 Miscellaneous Notes* Telephone Encounter - Melva Sandoval PA-C - 07/02/2022 3:24 PM EDT Noted. Melva Sandoval PA-C * Telephone Encounter - Imelda Hull Pss - 07/02/2022 3:11 PM EDT Laurie HARRISON from [facility] is calling Herminia Case MD today to inform provider as an Patient Update (Cancelled her home OT visit today due to illness )please be advised. Patient was not feeling well. [phone]. Patient has been identified by name and birthdate. Duration of symptoms: N/A Person calling: Laurie HARRISON Call patient at: n/a [phone] (home) [phone] (cell) Was an appointment scheduled: No Closing statement: Results or non-symptom based questions: Thank you for calling [facility], your call will be returned within the next business day. Imelda Hull Pss documented in this encounterC[facility]04-13-2023 Miscellaneous Notes* Telephone Encounter - Whit Shay LPN - 07/01/2022 3:25 PM EDT Request completed and faxed. * Telephone Encounter - Herminia Case MD - 07/01/2022 3:00 PM EDT Done. * Telephone Encounter - Whit Shay LPN - 07/01/2022 10:35 AM EDT Type of letter/form/fax request - Home Health Care Orders Form received from [facility] on 06/30/22 floor and placed on MD desk () for completion. Completed form needs to be faxed to [phone]. Route to [place] when form completed for processing documented in this encounterCleveland Clinic [facility]04-12-2023 Miscellaneous Notes* Telephone Encounter - Ruddy Moreno RN - 06/30/2022 7:20 PM EDT Laurie from [facility] informed. Advised to call back with any further concerns or questions. * Telephone Encounter - Melva Sandoval PA-C - 06/30/2022 7:13 PM EDT I am not aware of any concerning interactions. Melav Sandoval PA-C * Telephone Encounter - Ruddy Moreno RN - 06/30/2022 7:07 PM EDT Laurie, OT [facility]. Their computer program alerted her to [...] 3:10 PM EDT Gonzalo Deluca, dino Sullivan /OT with [facility] is calling Herminia Case MD today to advise ofa possible medication interaction, the albuterol sulfate with the cyclobenzaprine. This is noted they are advised to call provider with this information Laurie [phone] (verified) Patient has been identified by name and birthdate. Duration of symptoms: N/A Person calling: OT Laurie with [facility] Call patient at: at home [phone] (home) [phone] (cell) Was an appointment scheduled: No Closing statement: Results or non-symptom based questions: Thank you for calling [facility], your call will be returned within the next business day. Kita Christiansen [facility] documented in this encounterC[facility]04-04-2023 Miscellaneous Notes* Telephone Encounter - Rocio [...] Rina, I am an occupational therapist with [facility]. I am callingabout patient Gonzalo Deluca, [...] for me I can be reached at [phone]. Thank you" Spoke with patient Complaints of sinus pain and pressure with nasal congestion Yellow nasal discharge Productive cough, yellow green phlegm Onset 06/20/22 Reports nebulizer broke a few years ago and [facility] also Patient is [...] : NA Protocols used: Sinus Pain or [id number] documented in this encounterC[facility]04-04-2023 Miscellaneous Notes* Telephone Encounter - Bernadette Rubin MA - 06/22/2022 3:55 PM EDT Last appointment: 06/03/22 Next appointment: 09/03/22 Pharmacy verified in [facility]. Refill(s) requested: Requested Prescriptions Pending Prescriptions Disp Refills albuterol (PROVENTIL) 2.5 mg /3 mL (0.083 %) nebulizer solution [Pharmacy Med Name: ALBUTEROL SUL 2.5 MG/3 ML SOLN] 90 mL 1 Sig: INHALE 3 ML VIA NEBULIZER EVERY 4 HOURS NEEDED FOR WHEEZE OR FOR SHORTNESS OF BREATH Order(s) pended. Please advise. Bernadette Rubin MA, [facility] documented in this encounterC[facility] Clinic [facility]04-04-2023 Miscellaneous Notes* Telephone Encounter - Whit Shay LPN - 06/22/2022 1:16 PM EDT Request completed and faxed. * Telephone Encounter - Herminia Case MD - 06/22/2022 12:59 PM EDT Done. * Telephone Encounter - Whit Shay LPN - 06/22/2022 11:38 AM EDT Type of letter/form/fax request - Home Health Care Orders Form received from [facility] on 06/21/22 floor and placed on MD desk () for completion. Completed form needs to be faxed to [phone]. Route to [place] when form completed for processing documented in this encounterC[facility]03-27-2023 Miscellaneous Notes* Telephone Encounter - Whit Shay LPN - 06/14/2022 12:32 PM EDT Request completed and faxed. * Telephone Encounter - Herminia Case MD - 06/14/2022 12:18 PM EDT Done. * Telephone Encounter - Whit Shay LPN - 06/14/2022 10:48 AM EDT Type of letter/form/fax request - Home Health Care Orders Form received from [facility] on 06/13/22 floor and placed on desk () for completion. Completed form needs to be faxed to [phone]. Route to [place] when form completed for processing documented in this encounterC[facility]03-16-2023 History of Present illness Narrative* Herminia Case MD - 06/03/2022 3:34 PM EDT VIRTUAL VISIT PROGRESS NOTE This is a virtual visit using [employer] video visit. It required patient-provider interaction for themedical decision making as documented below. Gonzalo Deluca is a 66 year old female seen for follow up. Admitted 05/21-05/24 at [facility] none Fell on 05/21 Missed a [...] no rash noted RESPIRATORY: breathing non-labored ASSESSMENT: (S42.263D) Other closed nondisplaced fracture of proximal end [...] visit. Herminia Case MD documented in this encounterC[facility]03-14-2023 Miscellaneous Notes* Telephone Encounter - Whit Shay LPN - 06/01/2022 10:42 AM EDT Request completed and faxed. * Telephone Encounter - Herminia Case MD - 06/01/2022 9:53 AM EDT Done. * Telephone Encounter - Whit Shay LPN - 06/01/2022 9:28 AM EDT Type of letter/form/fax request - Home Health Care Orders Form received from [facility] on 05/28/22 floor and placed on MD desk () for completion. Completed form needs to be faxed to [phone]. Route to [place] when form completed for processing documented in this encounterC[facility]03-13-2023 Miscellaneous Notes* Telephone Encounter - Herminia Case MD - 05/31/2022 8:22 PM EDT Noted. * Telephone Encounter - Jessica Whitley Pss - 05/31/2022 4:09 PM EDT Rina is an occupational therapist for [facility] and is calling to let Dr. Case know that the patient cancelled her occupational therapy visit last and has put the therapist off until Tuesday (although she has not set up a time yet). Patient's occupational therapy is delayed. Rina [phone] documented in this encounterCleveland Clinic [facility]03-06-2023 Note* Care Coordination - Janet Jean RN - 05/24/2022 11:11 AM EST Pt remains on 1E, plan for discharge today. Spoke with pt at bedside, she states she wants to discharge home with daughter. MONTEIRO notified, pt confirms she has transportation home and they will bring her 02 to pick her up. Wears 2L NC. Plan for pt to discharge home with [facility]. TCC to assist and followas needed. [facility] HospitalNojwdf94-70-5298 Note* Care Coordination - Janet Jean RN [...] HHC. TCC to assist and followas needed. [facility] HospitalLvjrqd01-90-7687 Miscellaneous Notes* Care Coordination - Janet Jean [...] 180 by Nicole Swift RN Outcome: Progressing 05/23/20221801 by Nicole Swift RN Outcome: Progressing Goal: Maintain proper alignment of affected body part 05/23/2022 180 by Nicole Swift RN Outcome: Progressing 05/23/2022 180 by Nicole Swift RN Outcome: Progressing Goal: Return ADL status to a safe level of function 05/23/2022 180 by Nicoel Swift RN Outcome: Progressing 05/23/2022 180 by Nicole Swift RN Outcome: Progressing Problem: Pain Goal: My pain/discomfort is manageable 05/23/2022 180 by Nicole Swift RN Outcome: Progressing 05/23/2022 180 by Nicole Swift RN Outcome: Progressing Problem: Safety Goal: Patient will be injury free during hospitalization 05/23/2022 180 by Nicole Swift RN Outcome: Progressing 05/23/20221801 by Nicole Swift RN Outcome: Progressing Goal: I will remain free of falls 05/23/20221801 by Nicole Swift RN Outcome: Progressing 05/23/20221801 by Nicole Swift RN Outcome: Progressing * Care Coordination - Unknown Case Management - 05/23/2022 2:13 PM EST Patient Choice Patient Name: GONZALO DELUCA Date of : 1955 All Providers Sent Referral Name: [facility] Phone: [phone] Address: [address] [place] [address] * Home Care - Mahsa Castro RN - 05/23/2022 2:03 PM EST Start PACC Note Home Health Referral Educated patient on Home Care and services available. Patient offered choice of available HHC and [facility] [...] is noted as yes - consider a SPECIFICATION WRITER evaluation once the patient returns home. START PATIENT REGISTRATION INFORMATION Order Information Order Signing Physician: Teresa Cedillo MD Service Ordered RN ?: No Service Ordered PT ?: Yes Service Ordered OT ?: Yes Service Ordered ST ?: No Service Ordered SPECIFICATION WRITER?:No Service Ordered ENGAGEMENT SPECIALIST?: No Following Physician: HERMINIA CASE MD Following Physician Overseeing Physician: HERMINIA CASE MD (Required for Residents only) Agreeable to Follow? Office closed Date/Time of Call 05/23/22 2:04 PM Care Coordination SOC Call from [facility] Required?: No Same Day SOC?: No Primary Care Physician: HERMINIA CASE MD Primary Care Physician Primary Care Physician Address: [address] [place] [address] Visit Instructions: N/A Service Discharge Location Type: Home with Home Health Care Service Facility Name: N/A Service Floor Facility: N/A Service Room No: N/A Demographics Patient Last Name: Yosi Patient First Name: Gonzalo Language/Communication Barrier: n/a Service Address: [address] [place], [place] [address] Service City: [facility]: [place] Service ZIP: [address] Service (home) Other phone numbers: Telephone Information: Emergency Contact: Extended Emergency Contact Information Primary Emergency Contact: Karishma Deluca Relation: Child Secondary Emergency Contact: Jace Deluca Relation: Child Admission Information Admit Date: 05/21/2022 Patient status at discharge: Observation Caregiver Information Caregiver First Name: Karishma Caregiver Last Name: Yosi Caregiver Relationship to Patient dtr Caregiver Caregiver Notes: N/A [employer] List No END PATIENT REGISTRATION INFORMATION Pt [...] side Discharge Date: 05/23/22 Referral Source-PACC: (Hospital/Unit): [facility] / B1-147/B1-147 B End PACC Note * Care Coordination - Phillip Gurrola RN - 05/22/2022 4:48 PM EST Care Managment Initial Assessment Date: 05/22/2022 Patient Name: Gonzalo Deluca : 1955 Patient Information Source of Information: Patient Name/Contact Information: KARISHMA DELUCA [phone] DAUGHTER Cognition/Language: WFL - Within Functional Limits Permission given to speak with patient agency sales representative/caregiver as indicated: Yes Confirmation of Payer with patient/family: Yes P[facility] Name: [facility] CENTER DUAL COMPLETE : No Confirmation of Primary [...] Daily Living Prescription Coverage: Yes Pharmacy Used: [facility] [place] Medication Management: Prescription pick-up Who assists with [...] expects to be discharged to: HOME WITH [facility] Discharge Planning Actions: Continue to [...] is electing to discharge to home with [facility] services. sas developer updated via [facility]. Patient states lives at home with her daughter, prem's boyfriend, and her 6 year granddaughter. States her daughter plans on taking FMLA and staying with her while she recovers. Patient does wear oxygen at 2.5 liters at home cont. Denies anticipating any additional needs upon discharge. Discharge plan home with [facility] when medically stable. Anticipate probable discharge in [...] of falls Outcome: Progressing documented in this [facility]03-06-2023 Hospital course Narrative* Teresa Cedillo [...] SNF but patient declined and wished hoemwith [facility]. She was discharged home. SIGNIFICANT [...] Complexity: follow up within 7-14 calendar days (87949) [] Severe Complexity: follow up within 7 calendar days (18052) FOLLOW UP TESTING, PENDING RESULTS OR REFERRALS AT TRANSITIONAL CARE VISIT: [] Yes [] No PENDING STUDIES: No DISPOSITION: Home FACILITY/HOME CARE AGENCY NAME: Follow up with Betsey Gresham MD [address] [place] [phone] Schedule an appointment as soon as possible for a visit in 3 week(s) Herminia Case MD [address] [place] [address] [phone] Schedule an appointment as soon as possible [...] MD 05/24/2022, 10:00 AM documented in this [facility]03-06-2023 History of Present illness Narrative* Martita Ervin, 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 - 05/24/2022 8:39 AM EST Physical Therapy Facility/Department: [facility] Physical Therapy Daily Treatment Note NAME: [...] Allergic rhinitis, Arthritis, Asthma, Bronchitis, Cancer (CMS/HCC) ([facility]), Cervical cancer (CMS/HCC) ([facility]), Chest pain, COPD (chronic obstructive pulmonary disease) ([facility]), DDD (degenerative disc disease), cervical, Defect, retina, with detachment, DJD (degenerative joint disease), lumbar, Emphysema lung ([facility]), Former smoker, Hematuria, Hypokalemia, Lung nodules, Osteoporosis, Palpitations, Pneumonia, Recurrent major depression ([facility]), Sciatica, Thoracic compression fracture ([facility]), and Vitamin D deficiency. She has no past medical history of Blood circulation, collateral, Chronic kidney disease, Clotting disorder (CMS/HCC) (HCC), Disease of blood and blood forming organ, GERD (gastroesophageal reflux disease), Liver disease, Movement disorder, Other disorders of kidney and ureter in diseases classified elsewhere, Seizures (CMS/HCC) ([facility]), or Syncope and collapse. has [...] but no LOB noted. Distance (ft) 1: 402tay2 Comments 1: O2 after 50ft x 1 [...] Inpatient Mobility Raw Score: 16 Mobility Inpatient [facility] G-Code Modifier: CK Goals Encounter Problems [...] note were not included. Hospitalist Progress Note 05/23/[id number]: Please message me for patient care issues. [phone]: Please message [facility] night Hospitalist for any issues. Subjective: Admit Date: 05/21/2022 PCP: HERMINIA CASE MD Room#: B1-147/B1-147 B Interval History: Remains on oxygen. Tolerating diet. Pain controlled. Denies chest pain, sob, abdominal pain, nausea, vomiting, diarrhea, constipation, fevers, or chills. She is weak. Still does notwant SNF/FBT but does not feel ready to go home today. D/w pt and RN separately. Adult diet Regular @[id number]@ 24HR INTAKE/OUTPUT: No intake or output data [...] [phone] BMP: Recent Labs 05/21/2252505/22/2245005/23/22 005 NA 138 137 138 K 4.2 4.2 [...] TERESA CEDILLO MD Division of Hospitalist Medicine [facility] PAGER: Epic chat * Andres Ventura MD [...] 2-3 weeks as outpatient. * Griselda Mcfarlane, 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 - 05/23/2022 8:34 AM EST Physical Therapy Facility/Department: [facility] 1 E Physical Therapy Daily Treatment [...] Allergic rhinitis, Arthritis, Asthma, Bronchitis, Cancer (CMS/HCC) ([facility]), Cervical cancer (CMS/HCC) ([facility]), Chest pain, COPD (chronic obstructive pulmonary disease) ([facility]), DDD (degenerative disc disease), cervical, Defect, retina, with detachment, DJD (degenerative joint disease), lumbar, Emphysema lung ([facility]), Former smoker, Hematuria, Hypokalemia, Lung nodules, Osteoporosis, Palpitations, Pneumonia, Recurrent major depression ([facility]), Sciatica, Thoracic compression fracture ([facility]), and Vitamin D deficiency. She has no past medical history of Blood circulation, collateral, Chronic kidney disease, Clotting disorder (CMS/HCC) ([facility]), Disease of blood and blood forming organ, GERD (gastroesophageal reflux disease), Liver disease, Movement disorder, Other disorders of kidney and ureter in diseases classified elsewhere, Seizures (CMS/HCC) ([facility]), or Syncope and collapse. has [...] 05/22/2022 2:44 PM EST Physical Therapy Facility/Department: [facility] Physical Therapy Daily Treatment Note NAME: Gonzalo [...] DJD (degenerative joint disease), lumbar, Emphysema lung ([facility]), Former smoker, Hematuria, Hypokalemia, Lung nodules, Osteoporosis, Palpitations, Pneumonia, Recurrent major depression ([facility]), Sciatica, Thoracic compression fracture ([facility]), and Vitamin D deficiency. She has no past medical history of Blood circulation, collateral, Chronic kidney disease, Clotting disorder (CMS/HCC) ([facility]), Disease of blood and blood forming organ, GERD (gastroesophageal reflux disease), Liver disease, Movement disorder, Other disorders of kidney and ureter in diseases classified elsewhere, Seizures (CMS/HCC) ([facility]), or Syncope and collapse. has [...] Inpatient Mobility Raw Score: 14 Mobility Inpatient [facility] G-Code Modifier: CL Goals Encounter Problems [...] were not included. Hospitalist Progress Note 05/22/2022 [phone]: Please message me for patient care issues. [phone]: Please message [facility] Hospitalist for any issues. Subjective: Admit Date: 05/21/2022 PCP: HERMINIA CASE MD Room#: B1-147/B1-147 B Interval History: Pain controlled. Tolerating diet. Weak. Denies chest pain, sob, abdominal pain, nausea, vomiting, diarrhea, constipation, fevers, or chills. D/w pt Adult diet Regular @[id number]@ 24HR INTAKE/OUTPUT: No intake or output data in the 24 hours ending 05/22/22 1156 Past Medical History: Past Medical History: Diagnosis Date Abnormal stress test Allergic rhinitis Arthritis Asthma Bronchitis Cancer (CMS/HCC) (HCC) skin Cervical cancer (CMS/HCC) ([facility]) Chest pain COPD (chronic obstructive pulmonary disease) ([facility]) USE OXYGEN 3 L AT [...] TERESA CEDILLO MD Division of Hospitalist Medicine [facility] PAGER: Epic chat * Andres Ventura MD [...] 05/21/2022 3:31 PM EST Physical Therapy Facility/Department: [facility] ED Physical Therapy Initial Evaluation NAME: [...] test, Allergic rhinitis, Arthritis, Asthma, Bronchitis, Cancer ([facility]/HCC) ([facility]), Cervical cancer ([facility]/HCC) ([facility]), Chest pain, COPD (chronic obstructive pulmonary disease) ([facility]), DDD (degenerative disc disease), cervical, Defect, retina, with detachment, DJD (degenerative joint disease), lumbar, Emphysema lung ([facility]), Former smoker, Hematuria, Hypokalemia, Lung nodules, Osteoporosis, Palpitations, Pneumonia, Recurrent major depression ([facility]), Sciatica, Thoracic compression fracture ([facility]), and Vitamin D deficiency. She has no past medical history of Blood circulation, collateral, Chronic kidney disease, Clotting disorder (CMS/HCC) ([facility]), Disease of blood and blood forming organ, GERD (gastroesophageal reflux disease), Liver disease, Movement disorder, Other disorders of kidney and ureter in diseases classified elsewhere, Seizures ([facility]) ([facility]), or Syncope and collapse. has [...] Independent (no device) Transfer Assistance: Independent Active Band Saw Marker: No Additional Comments: daughter works Objective Observation/Palpation [...] Inpatient Mobility Raw Score: 12 Mobility Inpatient [facility] G-Code Modifier: CL Goals Encounter Problems [...] PT adding co-sign for observation. * Kendra Dougherty, OT - 05/21/2022 3:27 PM EST Occupational Therapy Facility/Department: [facility] ED Occupational Therapy Initial Evaluation NAME: [...] Chest pain, COPD (chronic obstructive pulmonary disease) ([facility]), DDD (degenerative disc disease), cervical, Defect, retina, with detachment, DJD (degenerative joint disease), lumbar, Emphysema lung ([facility]), Former smoker, Hematuria, Hypokalemia, Lung nodules, Osteoporosis, Palpitations, Pneumonia, Recurrent major depression ([facility]), Sciatica, Thoracic compression fracture ([facility]), and Vitamin D deficiency. She has no past medical history of Blood circulation, collateral, Chronic kidney disease, Clotting disorder (CMS/HCC) ([facility]), Disease of blood and blood forming organ, GERD (gastroesophageal reflux disease), Liver disease, Movement disorder, Other disorders of kidney and ureter in diseases classified elsewhere, Seizures (CMS/HCC) ([facility]), or Syncope and collapse. has [...] Independent (no device) Transfer Assistance: Independent Active Band Saw Marker: No Additional Comments: daughter works Objective Gross [...] is seen and examined, admitted by the network administrator early a.m., see H&P for details. Patient [...] 05/21/2022 7:43 AM EST Occupational Therapy Facility/Department: [facility] ED Occupational Therapy Initial Evaluation NAME: Gonzalo Deluca : 1955 Date of Service: 05/21/2022 PT/OT evaluation orders received and chart review completed. Pt found to have R proximal humerus fracture and possible R elbow occult right osseous fracture. Ortho consult pending. Will hold for updated POC and weight bearing status prior to initiating evaluation. Darius Worrell OT * Marian Mendosa, PT - 05/21/2022 7:40 AM EST Physical Therapy Facility/Department: [facility] ED Physical Therapy Initial Evaluation NAME: Gonzalo Starksyahir : 1955 Date of Service: 05/21/2022 PT/OT evaluation orders received and chart review completed. Pt found to have R proximal humerus fracture and possible R elbow occult right osseous fracture. Ortho consult pending. Will hold for updated POC and weight bearing status prior to initiating evaluation. Marian Mendosa PT documented in this [facility]03-05-2023 Plan of care note* Care Plan - [...] will remain free of falls Outcome: Progressing [id number] Plan of care note* Care Plan - Nicole Swift RN - 05/23/2022 6:02 PM EST Problem: Musculoskeletal - Adult Goal: Return mobility to safest level of function 05/23/2022 180 by Nicole Swift RN Outcome: Progressing 05/23/2022 180 by Nicole Swift RN Outcome: Progressing Goal: Maintain proper alignment of affected body part 05/23/2022 180 by Nicole Swift RN Outcome: Progressing 05/23/2022 180 by iNcole Swift RN Outcome: Progressing Goal: Return ADL [...] 180 by Nicole Swift RN Outcome: Progressing [id number] [facility]* Care Coordination - Unknown Case Management - 05/23/2022 2:13 PM EST Patient Choice Patient Name: GONZALO DELUCA Date of : 1955 All Providers Sent Referral Name: [facility] Phone: [phone] Address: [address] [place] [address] [id number] Note* Care Coordination - Unknown Case Management - 05/23/2022 2:13 PM EST Patient Choice Patient Name: GONZALO DELUCA Date of : 1955 All Providers Sent Referral Name: [facility] Phone: [phone] Address: [address] [place] [id number] [id number] Note* Home Care - Mahsa Castro RN - 05/23/2022 2:03 PM EST Start PACC Note Home Health Referral Educated patient on Home Care and services available. Patient offered choice of available HHC and agreeable to PT/OT services with [facility]. Care Types: [...] is noted as yes - consider a SPECIFICATION WRITER evaluation once the patient returns home. START PATIENT REGISTRATION INFORMATION Order Information Order Signing Physician: Teresa Cedillo MD Service Ordered RN ?: No Service Ordered PT ?: Yes Service Ordered OT ?: Yes Service Ordered ST ?: No Service Ordered SPECIFICATION WRITER?:No Service Ordered ENGAGEMENT SPECIALIST?: No Following Physician: HERMINIA CASE MD Following Physician Overseeing Physician: HERMINIA CASE MD (Required for Residents only) Agreeable to Follow? Office closed Date/Time of Call 05/23/22 2:04 PM Care Coordination SOC Call from [facility] Required?: No Same Day SOC?: No Primary Care Physician: HERMINIA CASE MD Primary Care Physician Primary Care Physician Address: [address] [place] [id number] Visit Instructions: N/A Service Discharge Location Type: Home with Home Health Care Service Facility Name: N/A Service Floor Facility: N/A Service Room No: N/A Demographics Patient Last Name: Yosi Patient First Name: Gonzalo Language/Communication Barrier: n/a Service Address: [address] [place] [address] Service City: [facility]: [place] Service ZIP: [address] [facility] (home) Other phone numbers: Telephone Information: Emergency Contact: Extended Emergency Contact Information Primary Emergency Contact: Karishma Deluca Relation: Child Secondary Emergency Contact: Jace Deluca [place] Relation: Child Admission Information Admit Date: 05/21/2022 Patient status at discharge: Observation Caregiver Information Caregiver First Name: Karishma Caregiver Last Name: Yosi Caregiver Relationship to Patient dtr Caregiver Caregiver Notes: N/A [employer] List No END PATIENT REGISTRATION INFORMATION Pt [...] side Discharge Date: 05/23/22 Referral Source-PACC: (Hospital/Unit): [facility] / B1-147/B1-147 B End PACC Note [id number] Note* Home Care - Mahsa Castro RN - 05/23/2022 2:03 PM EST Start PACC Note Home Health Referral Educated patient on Home Care and services available. Patient offered choice of available HHC and agreeable to PT/OT services with [facility]. Care [...] is noted as yes - consider a SPECIFICATION WRITER evaluation once the patient returns home. START PATIENT REGISTRATION INFORMATION Order Information Order Signing Physician: Teresa Cedillo MD Service Ordered RN ?: No Service Ordered PT ?: Yes Service Ordered OT ?: Yes Service Ordered ST ?: No Service Ordered SPECIFICATION WRITER?:No Service Ordered ENGAGEMENT SPECIALIST?: No Following Physician: HERMINIA CASE MD Following Physician Overseeing Physician: HERMINIA CASE MD (Required for Residents only) Agreeable to Follow? Office closed Date/Time of Call 05/23/22 2:04 PM Care Coordination SOC Call from [facility] Required?: No Same Day SOC?: No Primary Care Physician: HERMINIA CASE MD Primary Care Physician Primary Care Physician Address: [address] [facility] [address] Visit Instructions: N/A Service Discharge Location Type: Home with Home Health Care Service Facility Name: N/A Service Floor Facility: N/A Service Room No: N/A Demographics Patient Last Name: Yosi Patient First Name: Gonzalo Language/Communication Barrier: n/a Service Address: [address] [place], [place] [address] Service City: [facility] ST: [place] Service ZIP: [address] Service (home) Other phone numbers: Telephone Information: Emergency Contact: Extended Emergency Contact Information Primary Emergency Contact: Nacho Delucai Relation: Child Secondary Emergency Contact: Jace Deluca Relation: Child Admission Information Admit Date: 05/21/2022 Patient status at discharge: Observation Caregiver Information Caregiver First Name: Karishma Caregiver Last Name: Yosi Caregiver Relationship to Patient dtr Caregiver Caregiver Notes: N/A [employer] List No END PATIENT REGISTRATION INFORMATION Pt [...] side Discharge Date: 05/23/22 Referral Source-PACC: (Hospital/Unit): [facility] / B1-147/B1-147 B End PACC Note [id number] Hospital Discharge instructions* Discharge Instr - Activity* Teresa Cedillo MD - 05/23/2022 12:34 PM EST Non weight bearing right upper extremity Continue shoulder immobilizer * Discharge Instr - Diet* Teresa Cedillo MD - 05/23/2022 12:35 PM EST Regular diet * Discharge Instr - Other Orders* Mahsa Castro RN - 05/23/2022 2:03 PM EST Discharging to Facility/ Agency Name: [facility] Address: [address] [place] [address] * Discharge Instr - SHAMA* Deanna Romero [...] BSO AND PELVIC LYMPH; DR[facility] ZIYAD MENENDEZ [facility] OTHER SURGICAL HISTORY Left 12/19/2019 Med [...] 2.6 oz) Mental Status: {SHAMA Patient Mental Status:28042} IV Access: {SHAMA IV Access:11542} Nursing Mobility/ADLs: Walking {YANETH ADL:51110::"Independent"} Transfer {YANETH ADL:98806::"Independent"} Bathing {YANETH ADL:65035::"Independent"} Dressing {YANETH ADL:02875::"Independent"} Toileting {YANETH ADL:::"Independent"} Feeding {YANETH ADL:::"Independent"} Electronics Manufacturer {YANETH ADL:::"Independent"} Med Delivery {yes/no:75448} Wound Care Documentation and Therapy: Wound/Incision 05/21/22 Traumatic Eye Right (Active) Site Assessment Swelling 05/24/22 0755 Odor None 05/23/22 0941 Drainage Amount None 05/24/22 0755 Primary Dressing Open to air 05/24/22 0755 Number of days: 2 Wound/Incision 05/21/22 Traumatic Wrist Left;Posterior (Active) Site Assessment [place] 05/24/22 0755 Odor None 05/24/22 0755 Drainage Amount None 05/24/22 0755 Primary Dressing Steri-strips 05/24/22 0755 Dressing Status Dry;Intact 05/24/22 0755 Number of days: 2 Elimination: Continence: Bowel: {yes/no:76817} Bladder: {yes/no:62235} Urinary Catheter: {SHAMA Urinary Catheter:72639} Colostomy/Ileostomy/Ileal Conduit: {YES / NO:} Date of Last BM: No intake or output data in the 24 hours ending 05/24/22 1049 No intake/output data recorded. Safety Concerns: {SHAMA Safety Concerns:57997} Impairments/Disabilities: {SHAMA Impairments/Disabilities:29994} Nutrition Therapy: Current Nutrition Therapy: {SHAMA Diet List:46946} Routes of Feeding: {routes of feedin} Liquids: {liquid consistency:81829} Daily Fluid Restriction: {daily fluid restriction:63210} Last Modified Barium Swallow with Video (Video Swallowing Test): {done not done:16831} Treatments at the Time of Hospital Discharge: Respiratory Treatments: Oxygen Therapy: {Therapy; copd oxygen:76116} Ventilator: {SHAMA Ventilator:67701} Rehab Therapies: {GEN THERAPY DISCIPLINE SCAL:6270087} Weight Bearing Status/Restrictions: {POD WEIGHT BEARIN} Other Medical Equipment (for information only, NOT a DME order): {Assistive Devices DME:01441} Other Treatments: Patient's personal belongings (please select all that are sent with patient): {SHAMA Patient Belongings:83933} RN SIGNATURE: {E-signature:47357} CASE MANAGEMENT/SOCIAL WORK SECTION Inpatient Status Date: Readmission Risk Assessment Score: Predictive Model Details Model IP RISK OF UNPLANNED READMISSION [[id number]] is not released. No score information can be retrieved Discharging to Facility/ Agency Name: Address: Phone: Fax: Dialysis Facility (if applicable) Name: Address: Dialysis Schedule: Phone: Fax: Cribbing Setter/Contract Technical Writer signature: {E-signature:03699} PHYSICIAN SECTION Prognosis: {Rehab Prognosis:30126} Condition at Discharge: {Patient Condition:90961} Rehab Potential (if transferring to Rehab): {Rehab Prognosis:86803} Recommended Labs or Other Treatments After Discharge: Physician Certification: I certify the above information and transfer of Gonzalo Deluca is necessary for the continuing treatment of the diagnosis listed and that she requires {SHAMA Level of Care:37310} for {greater less than:05464} 30 days. Update Admission H&P: {SHAMA Changes in H&P:64825} PHYSICIAN SIGNATURE: {E-signature:95882} Discharging to Facility/ Agency Name: [facility] Address: [address] [place] [address] documented in this [facility]03-04-2023 Note* Care Coordination - Phillip Gurrola RN - 05/22/2022 4:48 PM EST Care Managment Initial Assessment Date: 05/22/2022 Patient Name: Gonzalo Deluca : 1955 Patient Information Source of Information: Patient Name/Contact Information: KARISHMA DELUCA [phone] DAUGHTER Cognition/Language: WFL - Within Functional Limits Permission given to speak with patient agency sales representative/caregiver as indicated: Yes Confirmation of Payer with patient/family: Yes Payer Name: [facility] DUAL COMPLETE [place]: No Confirmation of Primary Care Physician: Confirmed [...] Prescription Coverage: Yes Pharmacy Used: [facility] [place] Medication Management: Prescription pick-up Who assists with [...] expects to be discharged to: HOME WITH [facility] Discharge Planning Actions: Continue to [...] is electing to discharge to home with [facility] services. [facility]as developer [facility]. Patient states lives at home with her daughter, prem's boyfriend, and her 6 year granddaughter. States her daughter plans on taking FMLA and staying with her while she recovers. Patient does wear oxygen at 2.5 liters at home cont. Denies anticipating any additional needs upon discharge. Discharge plan home with [facility] when medically stable. Anticipate probable discharge in the am.. Phillip Gurrola RN [facility]jpjrm90-87-3440 Note* Care Coordination - Phillip Gurrola RN - 05/22/2022 4:48 PM EST Care Managment Initial Assessment Date: 05/22/2022 Patient Name: Gonzalo Deluca : 1955 Patient Information Source of Information: Patient Name/Contact Information: KARISHMA DELUCA [phone] DAUGHTER Cognition/Language: WFL - Within Functional Limits Permission given to speak with patient agency sales representative/caregiver as indicated: Yes Confirmation of Payer with patient/family: Yes Payer Name: [facility] DUAL COMPLETE : No Confirmation of Primary [...] Prescription Coverage: Yes Pharmacy Used: [facility] Medication Management: Prescription pick-up Who assists with [...] expects to be discharged to: HOME WITH [facility] Discharge Planning Actions: Continue to follow Patient's Choice Rights and [employer] and Collaborative Relationships Disclosed as Indicated for Post-Acute Care: NA Interdisciplinary Team Engagement: Home Health Care, PT/OT Social Work Referral for: Additional Information: Admitted from home following a fall. Sustained right shoulder and elbow fracture. Admitted to [facility] ortho consulted, has sling in place to right arm. Pt/ot and pain control. Discharge preparation checklist reviewed with patient. Has prescription coverage and able to afford medications. Reviewed therapy evals and recommendations of snf with patient and she is electing to discharge to home with [facility] services. sas developer updated via [facility]. Patient states lives at home with her daughter, prem's boyfriend, and her 6 year granddaughter. States her daughter plans on taking FMLA and staying with her while she recovers. Patient does wear oxygen at 2.5 liters at home cont. Denies anticipating any additional needs upon discharge. Discharge plan home with [facility] when medically stable. Anticipate probable discharge in the am.. Phillip Gurrola RN [id number] Plan of care note* Care Plan - [...] Nicole Swift RN Outcome: Progressing [facility]03-03-2023 Plan of care note* Care Plan - [...] will remain free of falls Outcome: Progressing [facility]03-03-2023 Consult note* Betsey Gresham MD - 05/21/2022 [...] BSO AND PELVIC LYMPH; [facility] OTHER SURGICAL HISTORY Left 12/19/2019 Med [...] the weekend if there is any issues. [employer] Work Phone: 1([phone]) 211-326403-03-2023 Consult note* Betsey Gresham MD - 05/21[facility]2022 10[facility] to Orthopaedic Surgery [...] there is any issues. documented in this [facility]03-03-2023 Emergency department Note* Erna Smalls RN - 05/21/2022 8:00 AM EST Pt repositioned in bed Erna Smalls RN 05/21/22 0836 [facility] HospitalRiscpv06-30-6353 Emergency department Note* Erna Smalls RN - [...] test Allergic rhinitis Arthritis Asthma Bronchitis Cancer ([facility]) skin Cervical cancer ([facility]) Chest pain COPD (chronic obstructive pulmonary disease) ([facility]) USE OXYGEN 3 L AT NIGHT DDD (degenerative disc disease), cervical Defect, retina, with detachment right DJD (degenerative joint disease), lumbar Emphysema lung (CMS/[facility]) Former smoker Hematuria SCHEDULED FOR THE PROCEDURE /SURGERY ON 02/11/2017 Hypokalemia Lung nodules Osteoporosis Palpitations Pneumonia Recurrent major depression (CMS/HCC) Sciatica Thoracic compression fracture ([facility]/HCC) Vitamin D deficiency SURGICAL HISTORY Past [...] (has no administration in time range) HYDROcodone-acetaminophen ([place]) 5-325 MG per tablet 1 tablet (has [...] in time range) lidocaine-EPINEPHrine (Xylocaine W/EPI) 1 %-1:516940 injection 10 mL (10 mL Infiltration Given [...] [PK] Martha Flores MD Diagnoses as of 05/21/22554 Fall, initial encounter Facial laceration, initial encounter [...] deficits on exam. Patient is positive per Guatemalan C-spine criteria. Given these findings work-up in [...] poor cosmetic result and poor wound healing Dickey protocol: Patient identity confirmed: Verbally with patient [...] wound healing and need for additional repair Dickey protocol: Patient identity confirmed: Verbally with patient [...] MD (electronically signed) Emergency Medicine Provider Martha Folres MD 05/21/22 0556 * Trell Muller RN - 05/21/2022 2:26 AM EST From home via EMS adrian c/o right arm pain and right orbit laceration s/p mechanical fall d/t poor lighting. Denies LOC, no thinners * Floridalma Gonzalez RN - 05/21/2022 2:26 AM EST Bed: 19 Expected date: 05/21/22 Expected time: Means of arrival: Comments: Jean Gonzalez RN 05/21/22 0227 documented in this [facility]03-03-2023 History and physical note* Dianne Da Silva [...] Chest pain COPD (chronic obstructive pulmonary disease) (CMS/[facility]) USE OXYGEN 3 L AT [...] BSO AND PELVIC LYMPH; DR. ZIYAD MENENDEZ [facility] OTHER SURGICAL HISTORY Left 12/19/2019 Med [...] a 3.9 % 30 day risk of [place] or cardiac arrest class 1 risk and [...] [facility] Division of Hospitalist Medicine Inpatient Medical Services/[facility] [employer] Work Phone: [phone]) 285-976603-03-2023 History and physical note* Dianne Dale - [...] Asthma Bronchitis Cancer (CMS/HCC) skin Cervical cancer ([facility]/HCC) Chest pain COPD (chronic obstructive pulmonary disease) (CMS/HCC) USE OXYGEN 3 L AT NIGHT DDD (degenerative disc disease), cervical Defect, retina, with detachment right DJD (degenerative joint disease), lumbar Emphysema lung ([facility]/HCC) Former smoker Hematuria SCHEDULED FOR THE PROCEDURE /SURGERY ON 02/11/2017 Hypokalemia Lung nodules Osteoporosis Palpitations Pneumonia Recurrent major depression (CMS/HCC) Sciatica Thoracic compression fracture ([facility]/HCC) Vitamin D deficiency Past Surgical History: Past [...] a 3.9 % 30 day risk of [place] or cardiac arrest class 1 risk and [...] [facility] Division of Hospitalist Medicine Inpatient Medical Services/[facility] documented in this [facility]03-03-2023 Emergency department Note* Floridalma Gonzalez RN - 05/21/2022 2:26 AM EST Bed: 19 Expected date: 05/21/22 Expected time: Means of arrival: Comments: Jean Gonzalez RN 05/21/22 0227 [facility] [id number] Emergency department Triage note* Trell Muller RN - 05/21/2022 2:26 AM EST From home via EMS adrian c/o right arm pain and right orbit laceration s/p mechanical fall d/t poor lighting. Denies LOC, no thinners [facility]03-03-2023 Physician Emergency department Note* Martha Flores MD - 05/21/2022 2:[address] [facility]s): Laceration Repair; Laceration Repair; Laceration Repair [...] (has no administration in time range) HYDROcodone-acetaminophen ([place]) 5-325 MG per tablet 1 tablet (has [...] in time range) lidocaine-EPINEPHrine (Xylocaine W/EPI) 1 %-1:328415 injection 10 mL (10 mL Infiltration Given [...] deficits on exam. Patient is positive per Guatem[place] C-spine criteria. Given these findings work-up in [...] poor cosmetic result and poor wound healing Dickey protocol: Patient identity confirmed: Verbally with patient [...] wound healing and need for additional repair Dickey protocol: Patient identity confirmed: Verbally with patient [...] Medicine Provider Martha Flores MD 05/21/22 0556 [facility] [id number] Miscellaneous Notes* Telephone Encounter - Bernadette Rubin MA - 05/06/2022 8:02 AM EST Last appointment 03/05/22 Next appointment: 09/03/22 Pharmacy verified in [place]. Refill(s) requested: Requested Prescriptions Pending Prescriptions Disp Refills oxyCODONE-acetaminophen (PERCOCET) 5-325 mg tablet 120 tablet 0 Sig: Take 1 tablet by mouth every 6 hours as needed for pain for up to 30 days. Order(s) pended. Please advise. Bernadette Rubin MA, IMMUNOLOGY SPECIALIST documented in this encounterC[facility]02-01-[facility] History of Present illness Narrative* Sally Rocha APRN - [place] - 04/21/2022 2:00 PM EST @LOGOIMAGE@ Chief Complaint Patient presents with Follow-up Pt has no concerns. HISTORY OF THE PRESENT ILLNESS: Gonzalo J Yosi is a 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 Gonzalo Linaresnorma Starkssumeetbenji is a 64 y.o. with a Stage [...] BSO AND PELVIC LYMPH; DR. ZIYAD MENENDEZ [facility] OTHER SURGICAL HISTORY Left 12/19/2019 Med [...] recognition. 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 documented in this [facility]01-18-2023 Miscellaneous Notes* Telephone Encounter - Donovan Brower MD - 04/07/2022 4:36 PM EST [facility] website checked and validated. All prescriptions have been APPROPRIATELY filled. No suspiciousactivity was identified. 04/07/2022 by Donovan Brower MD * Telephone Encounter - Bernadette Rubin MA - 04/07/2022 2:59 PM EST Last appointment: 03/05/22 Next appointment: 09/03/22 Pharmacy verified in [place]. Refill(s) requested: Requested Prescriptions Pending Prescriptions Disp Refills oxyCODONE-acetaminophen (PERCOCET) 5-325 mg tablet 120 tablet 0 Sig: Take 1 tablet by mouth every 6 hours as needed for pain for up to 30 days. Order(s) pended. Please advise. Bernadette Rubin MA, IMMUNOLOGY SPECIALIST documented in this encounterCleveland Clinic [facility]01-17-2023 History of Present illness Narrative* Jo Chen MA - 04/06/2022 9:57 AM EST POPULATION HEALTH NAVIGATION OUTREACH Action/FYI LV [employer] message sent ANNUAL MEDICARE WELLNESS MAMMOGRAM Never done COLORECTAL CANCER SCREENING Never done INFLUENZA(1) due on 2021 ADVANCE DIRECTIVE DISCUSSION Never done Pt identified by name and : NO Outreach Outcome/Action Unable to reach patient: Left message [employer] message sent Did you use a PCP flex slot to schedule this appointment? N/A Reason for Outreach Care Gap or Scheduling/Wellness visits Payer: Payor: [facility] MEDICARE / Plan: [facility] DUAL COMPLETE HMO SNP / Product Type: [...] 06, 2022 9:57 AM documented in this encounterCleveland Clinic [facility]on Hospital12-19-2022 Miscellaneous Notes* Telephone Encounter - Whit Shay LPN - 03/08/2022 8:02 PM EST Last appointment: 03/05/22 Next appointment: 09/03/22 Pharmacy verified in [facility]. Refill(s) requested: Requested Prescriptions Pending Prescriptions Disp Refills cyclobenzaprine (FLEXERIL) 5 mg tablet 30 tablet 0 Sig: Take 1 tablet by mouth three times daily as needed. Order(s) pended. Please advise. Whit Shay LPN, CMA documented in this encounterCleveland Clinic Avon Hospital12-16-2022 Miscellaneous Notes* Telephone Encounter - Sandy Leggett - 03/05/2022 3:18 PM EST Spoke with patient. Patient has been scheduled with PCP on 09/03/2022. Thank you. Sandy Leggett * Telephone Encounter - Melva Sandoval PA-C - 03/05/2022 3:13 PM EST Please schedule pt for 6 month follow up with Dr. Case. Thanks, Melva Sandoval PA-C documented in this encounterCleveland Clinic Avon Hospital12-16-2022 History of Present illness Narrative* Melva Sandoval PA-C - 03/05/2022 3:07 PM EST VIRTUAL VISIT-pt consented Gonzalo Deluca is a 66 year old female here today for "follow up." COPD: Has spider assembler in [place], but hasn't seen him in a year. [...] date: 1970 Quit date: 2018 Years since quittin.9 Smokeless [...] J20.9 (primary diagnosis) Needs to schedule with spider assembler. 2. DDD (degenerative disc disease), lumbar - ICD9: 722.52, ICD10: M51.36 Stable, medication stable. 3. Major depression, recurrent, chronic (HCC) - ICD9: 296.30, ICD10: F33.9 Stable. Follow up [address] Csae or sooner prn. Offered nurse visit for vaccines, pt declined. Return in the interim prn. Pt in agreement with the plan and verbalized understanding. Melva Sandoval PA-C documented in this encounterCleveland Clinic [facility]on Hospital12-16-2022 Miscellaneous Notes* Telephone Encounter - Shelley Mendoza - 03/05/2022 7:36 AM EST Pt scheduled herself for a follow up today 03/05/22 at 3pm with Lynette Sandoval after message was left for pt to schedule with pulmonary. * Telephone Encounter - Whit Shay LPN - 03/04/2022 8:43 AM EST Orders faxed to [facility] for patient, needs to schedule with pulmonology order was placed in Julyto schedule. Whit Shay LPN * Telephone Encounter - Melva Sandoval PA-C - 03/03/2022 6:07 PM EST Has pt seen pulmonology? She was referred in July. Needs to get this set up if she hasn't. Orders printed, please process. Melva Sandoval PA-C * Telephone Encounter - Kita Christiansen [facility] - 03/03/2022 11:03 AM EST Gonzalo Deluca has Christina [facility] calling Herminia Case MD today to request an order for oxygen and portable oxygen concentrator, testing and chart notes to be sent to : Attn: Christina phone number for Christina [phone] NOTE: Christina will send pre filled forms if needed please call her to advise Patient has been identified by name and birthdate. Duration of symptoms: N/A [facility] documented in this encounterCleveland Clinic [facility]on Hospital11-23-2022 Miscellaneous Notes* Telephone Encounter - Evangelina Baltazar MA - 02/10/2022 8:27 AM EST Last appointment: 11-20-21 Next appointment: 03-01-22 Pharmacy verified in [facility]. Refill(s) requested: Requested Prescriptions Pending Prescriptions Disp Refills oxyCODONE-acetaminophen (PERCOCET) 5-325 mg tablet 120 tablet 0 Sig: Take 1 tablet by mouth every 6 hours as needed for pain for up to 30 days. Order(s) pended. Please advise. Evangelina Baltazar MA, IMMUNOLOGY SPECIALIST documented in this encounterCleveland Clinic Avon Hospital11-21-2022 Miscellaneous Notes* Telephone Encounter - Whit Shay LPN - 02/08/2022 8:13 PM EST Medication pended. Last visit: 11/20/21 Next visit: 03/01/22 documented in this encounterCleveland Clinic Avon Hospital11-16-2022 Miscellaneous Notes* Telephone Encounter - Roopa [...] 10 days Protocols used: Sinus Pain or [id number] * Telephone Encounter - Jessica Whitley Pss - 02/01/2022 4:19 PM EST Gonzalo is calling back. Please contact her at [phone]. Call anytime. * Telephone Encounter - Phillip Robles RN - 02/01/2022 12:10 PM EST I was wondering if Dr Lee could send an antibiotic and steroid in for me. I'm having sinus pain and coughing quite a bit. Any questions please contact me at [phone]. My pharmacy in [facility] in [place]. Thank you! Called patient regarding message below, no answer. Left message to call office back. [employer] message sent as well. Phillip Robles RN Reason for Disposition Message left on unidentified voice mail. Phone number verified. Protocols used: No Contact or Duplicate Contact [id number] documented in this encounterCleveland Clinic [facility]on Hospital11-11-2022 History of Present illness Narrative* Macarena Higgins APRN.CNP - 01/29/2022 11:12 PM EST This is an Express Care eVisit note for Gonzalo Deluca eVisit/Questionnaire reviewed The chief complaint for the visit - Patient presents with: Sinusitis Recommendations/Treatment plan - referral <5 mins to complete Macarena Higgins APRN.NAILING MACHINE OPERATOR documented in this encounterCleveland Clinic [facility]on Hospital10-27-2022 Miscellaneous Notes* Telephone Encounter - Christina [...] advise. Christina Patel Ma documented in this [facility]09-08-2022 Miscellaneous Notes* Telephone Encounter - Evangelina Baltazar MA - 11/26/2021 9:01 AM EDT Last appointment: 11-20-21 Next appointment: 03-01-22 Pharmacy verified in [facility]. Refill(s) requested: Requested Prescriptions Pending Prescriptions Disp Refills atorvastatin (LIPITOR) 40 mg tablet [Pharmacy Med Name: ATORVASTATIN 40 MG TABLET] 90 tablet 1 Sig: TAKE 1 TABLET BY MOUTH EVERY DAY AT NIGHT Order(s) pended. Please advise. Evangelina Baltazar MA, [facility] documented in this encounterCleveland Clinic [facility] Hospital08-10-2022 Miscellaneous Notes* Telephone Encounter - Danyelle Contreras - 10/28/2021 10:16 AM EDT Last appointment: 08/06/21 Next appointment: 11/12/21 Pharmacy verified in [facility]. Refill(s) requested: Requested Prescriptions Pending Prescriptions Disp Refills QUEtiapine (SEROQUEL) 100 mg tablet 90 tablet 1 Sig: Take 1 tablet by mouth at bedtime as needed. Order(s) pended. Please advise. Danyelle Contreras LPN documented in this [facility]08-01-2022 Miscellaneous Notes* Telephone Encounter - Melva Sandoval PA-C - 10/19/2021 1:06 PM EDT PDMP website checked and validated. All prescriptions have been APPROPRIATELY filled. No suspiciousactivity was identified. 10/19/2021 by Melva Sandoval PA-C * Telephone Encounter - Estee Amor LPN - 10/19/2021 12:47 PM EDT Pharmacy verified in [facility] Patient has been identified by [...] advise. Estee Amor LPN documented in this encounterCleveland Clinic [facility] Hospital07-28-2022 Miscellaneous Notes* Telephone Encounter - Whit [...] advise. Whit Shay LPN documented in this encounterCleveland Clinic [facility] Hospital07-27-2022 History of Present illness Narrative* Bret Contreras RN - 10/14/2021 1:00 PM EDT Pt here for port access for CT scan. Left Chest port accessed. Blood drawn from port. 1415: Ordered treatment completed. Patient discharged without any issues. Patient has a copy of next infusion appointment and verbalizes understanding. All questions answered. documented in this encounterSSELECT [facility] Work Phone: [phone]) [phone] Miscellaneous Notes* Telephone Encounter - Melva Sandoval [...] advise. Estee Amor LPN documented in this encounterCleveland Clinic [facility] Hospital05-20-2022 Miscellaneous Notes* Telephone Encounter - Whit Shay LPN - 08/07/2021 3:24 PM EDT Mailed labs to patient and faxed office notes to [facility]. Whit Shay LPN * Telephone Encounter - Lala Jay - 08/07/2021 12:56 PM EDT Please mail lab orders to her home. Yes [facility] in [place] is where they need sent. Lala Jay * Telephone Encounter - Whit Shay LPN - 08/07/2021 11:24 AM EDT LM for patient to call office. 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 Need to know if it is [facility] her office notes need sent to. Whit Shay LPN documented in this encounterCleveland Clinic [facility] Hospital05-19-2022 Nurse Note* Lala Menard Pss - 08/06/2021 5:26 PM EDT Repeated Vitals SpO2 95 % on 3L nasal cannula , Pulse 90 SpO2 92% on room air for 2 min sitting , Pulse 92 SpO2 84% on room air ambulating 25 steps, Pulse 96 documented in this encounterCleveland Clinic [facility] Hospital05-19-2022 History of Present illness Narrative* Herminia Case MD - 08/06/2021 4:51 PM EDT Patient presents with: Follow Up HPI: Gonzalo Deluca is a 65 year old female who presents to the office today for follow up. 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 Herminia Case * Lala Menard Pss - 08/06/2021 4:35 PM EDT MAMMOGRAM Never done documented in this encounterCleveland Clinic [facility]on Hospital05-19-2022 Miscellaneous Notes* Telephone Encounter - Whit Shay LPN - 08/06/2021 2:02 PM EDT Request completed and faxed. * Telephone Encounter - Herminia Case MD - 08/06/2021 1:41 PM EDT Done. * Telephone Encounter - Whit Shay LPN - 08/06/2021 10:47 AM EDT Type of letter/form/fax request - Home Health Care Orders Form received from [facility] on 08/04/21 floor and placed on MD desk () for completion. Completed form needs to be faxed to [phone]. Route to [place] when form completed for processing documented in this encounterCleveland Clinic [facility] Hospital05-10-2022 Miscellaneous Notes* Telephone Encounter - Jessica Kong APRN.CNP - 07/28/2021 4:00 PM EDT [facility] and validated. All prescriptions have [...] patient. Slade Mcgee Ma documented in this encounterCleveland Clinic [facility] Hospital04-13-2022 Miscellaneous Notes* Telephone Encounter - Jessica Kong APRN.CNP - 07/01/2021 5:04 PM EDT [facility] checked and validated. All prescriptions have been APPROPRIATELY filled. No suspiciousactivity was identified. 07/01/2021 by Jessica Kong APRN.[place]DE[place] * Telephone Encounter - Evangelina Baltazar MA - 07/01/2021 2:26 PM EDT Last appointment: 05-06-21 Next appointment: 08-06-21 Pharmacy verified in [facility]. Refill(s) requested: Pending Prescriptions Disp Refills OXYCODONE-ACETAMINOPHEN 5 MG-325 MG TABLET 120 tablet 0 Sig: Take 1 tablet by mouth every 6 hours as needed for pain for up to 30 days. SAULO Class: C-II SLAVA: No Order(s) pended. Please advise. Evangelina Baltazar MA, IMMUNOLOGY SPECIALIST documented in this encounterCleveland Clinic [facility] Hospital04-13-2022 Miscellaneous Notes* Telephone Encounter - Evangelina [...] Order(s) pended. Please advise. Evangelina Baltazar MA, IMMUNOLOGY SPECIALIST documented in this encounterCleveland Clinic [facility] Hospital10-08-2021 History of Present illness Narrative* Shelley Lott RN - 12/26/2020 9:45 AM EDT Patient here for port access prior to CT scan, labs drawn via port. 1015 Patient taken to radiology by this RN, left at window with registration. documented in this [facility] Work Phone: 1(837) 931-113507-29-2021 Hospital Discharge instructions* Instructions* Lauren Lutz APRN - [place] - 10/16/2020 Use a hemorrhoid pillow for the coccyx fracture, take your pain medication. * Attachments The following attachments cannot be sent through Care Everywhere. * Coccyx Injury (Cameroonian) documented in this encounterSUMVT Work Phone: 1(161) 441-589707-07-2021 History of Present illness Narrative* Judy Mayer RN - 09/24/2020 10:55 AM EDT Arrival Note Patient is here for port access and flush for CT scan Labs were not ordered. 1230-Ordered treatment completed. Patient discharged without any issues. Patient has a copy of nextinfusion appointment and verbalizes understanding. All questions answered. documented in this encounterSSELECT [facility] Work Phone: Evaluation note* Diagnosis Poor venous access- Primary Other specified circulatory system disorders Malignant neoplasm of exocervix (HCC) Malignant neoplasm of exocervix documented in this encounter [facility] Work Phone: Evaluation note* Diagnosis Closed fracture of coccyx, initial encounter (HCC)- Primary Contusion of right elbow, initial encounter documented in this encounter [facility] Work Phone: Evaluation note* Diagnosis Malignant neoplasm of exocervix (HCC)- Primary Malignant neoplasm of exocervix Poor venous access Other specified circulatory system disorders documented in this encounter [facility] Work Phone: Evaluation note* Diagnosis Malignant neoplasm of exocervix (HCC) Malignant neoplasm of exocervix Lung nodule seen on imaging study documented in this encounter [facility] Work Phone: Evaluation note* Diagnosis Compression fracture of body of thoracic vertebra (HCC) documented in this encounter [facility]* Diagnosis Compression fracture of body of thoracic vertebra (HCC) documented in this encounter [facility]Evaluation [facility]* Diagnosis COPD (chronic obstructive pulmonary disease) with acute bronchitis (HCC) Obstructive chronic bronchitis with acute bronchitis documented in this encounter [facility]* Diagnosis Panlobular emphysema (HCC)- Primary Other [...] Solitary pulmonary nodule [facility] Diagnosis Compression fracture of body of thoracic vertebra (HCC) [facility]* Diagnosis Malignant neoplasm of exocervix (HCC)- Primary Malignant neoplasm of exocervix Abnormal chest CT Nonspecific (abnormal) findings on radiological and other examination of other intrathoracic organs Other specified complication of vascular prosthetic devices, implants and grafts, initial encounter ([facility]) Poor venous access Other specified circulatory system disorders documented in this encounter [facility] Work Phone: Evaluation note* Diagnosis Malignant neoplasm of exocervix (HCC) Malignant neoplasm of exocervix Abnormal findings on diagnostic imaging of other specified body structures Abnormal chest CT Nonspecific (abnormal) findings on radiological and other examination of other intrathoracic organs documented in this encounter [facility] Work Phone: Evaluation note* Diagnosis Compression fracture of body of thoracic vertebra (HCC) [facility] Medication management Encounter for long-term (current) use of other medications [facility] Diagnosis Hyperlipidemia, mixed Mixed hyperlipidemia [facility] Diagnosis Compression fracture of body of thoracic vertebra (HCC) [facility] Diagnosis Other acute sinusitis, recurrence not specified- Primary [facility] Diagnosis Chronic midline low back pain without sciatica [facility] Diagnosis Medication management Encounter for long-term (current) use of other medications [facility] Diagnosis Panlobular emphysema (HCC)- Primary Other emphysema [facility] Diagnosis COPD (chronic obstructive pulmonary disease) with acute bronchitis (HCC)- Primary Obstructive chronic bronchitis with acute bronchitis DDD (degenerative disc disease), lumbar Degeneration of lumbar or lumbosacral intervertebral disc Major depression, recurrent, chronic (HCC) Major depressive disorder, recurrent episode, unspecified [facility] Diagnosis Chronic midline low back pain without sciatica [facility] Diagnosis Compression fracture of body of thoracic vertebra (HCC) [facility] Diagnosis Other closed nondisplaced fracture [...] thoracic vertebra (HCC) documented in this encounter [facility] note* Diagnosis Chronic respiratory failure with hypoxia (HCC)- Primary Chronic respiratory failure Panlobular emphysema (HCC) Other emphysema [facility]* Diagnosis Encounter for screening mammogram for breast cancer documented in this encounter [facility] note* Diagnosis Compression fracture of body of thoracic vertebra (HCC) Other closed nondisplaced fracture of proximal end of right humerus with routine healing, subsequent encounter documented in this encounter [facility] note* Diagnosis Major depression, recurrent, chronic (HCC) Major depressive disorder, recurrent episode, unspecified documented in this encounter [facility] note* Diagnosis Medication management Encounter for long-term (current) use of other medications documented in this encounter [facility] note* Diagnosis Panlobular emphysema (HCC)- Primary Other [...] recurrent episode, unspecified documented in this encounter [facility] note* Diagnosis Major depression, recurrent, chronic (HCC) Major depressive disorder, recurrent episode, unspecified documented in this encounter [facility] note* Diagnosis Malignant neoplasm of exocervix (HCC)- Primary Malignant neoplasm of exocervix Encounter for screening mammogram for malignant neoplasm of breast documented in this encounter [facility] note* Diagnosis Compression fracture of body of thoracic vertebra (HCC) Other closed nondisplaced fracture of proximal end of right humerus with routine healing, subsequent encounter documented in this encounter [facility] note* Diagnosis Major depression, recurrent, chronic (HCC) Major depressive disorder, recurrent episode, unspecified [facility]* Diagnosis Pulmonary emphysema, unspecified emphysema type (HCC) [facility]* Diagnosis Nondisplaced fracture of neck of left femur (HCC)- Primary Closed displaced intertrochanteric fracture of left femur, initial encounter ([facility]) documented in this encounter [facility] note* Diagnosis Compression fracture of body of thoracic vertebra (HCC) [facility]* Diagnosis Compression fracture of body of thoracic vertebra (HCC) Other closed nondisplaced fracture of proximal end of right humerus with routine healing, subsequent encounter [facility] Diagnosis Hyperlipidemia, mixed Mixed hyperlipidemia [facility] this [facility]* Diagnosis Pulmonary emphysema, unspecified emphysema type (HCC) [facility]* Diagnosis Age-related osteoporosis without current pathological fracture Senile osteoporosis [facility]* Diagnosis Age-related osteoporosis with current pathological fracture of left femur with routine healing- Primary Aftercare for healing pathologic fracture of upper leg [facility]* Diagnosis Compression fracture of body of [...] with routine healing, subsequent encounter Moderate malnutrition ([facility]) Malnutrition of moderate degree documented [facility]* Diagnosis Lumbar compression fracture, closed, initial encounter ([facility])- Primary Lumbar compression fracture, closed, initial encounter ([facility]) Fall, initial encounter Multiple falls Nondisplaced fracture of neck of left femur ([facility]) documented in this encounter [facility] note* Diagnosis Compression fracture of body of thoracic vertebra (HCC) Other closed nondisplaced fracture of proximal end of right humerus with routine healing, subsequent encounter [facility]* Diagnosis PAUL (generalized anxiety disorder)- Primary [...] [facility] Diagnosis Moderate episode of recurrent major depressive disorder (HCC)- Primary Panlobular emphysema (HCC) Other emphysema [facility]* Diagnosis Age-related osteoporosis with current pathological fracture of left femur, initial encounter (HCC)- Primary [facility] Diagnosis PAUL (generalized anxiety disorder) [...] for breast cancer [facility]* Diagnosis Compression fracture of body of thoracic vertebra (HCC) Other closed nondisplaced fracture of proximal end of right humerus with routine healing, subsequent encounter [facility] Diagnosis Pulmonary emphysema, unspecified emphysema type (HCC) [facility]* Diagnosis Moderate episode of recurrent major depressive disorder (HCC) PAUL (generalized anxiety disorder) Generalized anxiety disorder [facility] Diagnosis Moderate episode of recurrent major depressive disorder (HCC) PAUL (generalized anxiety disorder) Generalized anxiety disorder [facility] Diagnosis Medication management Encounter for long-term (current) use of other medications [facility] Diagnosis Moderate episode of recurrent major depressive disorder (HCC)- Primary Panlobular emphysema (HCC) Other emphysema Chronic respiratory failure with hypoxia (HCC) Chronic respiratory failure [facility]* Diagnosis Major depression, recurrent, chronic (HCC) Major depressive disorder, recurrent episode, unspecified [facility] Diagnosis Bronchitis- Primary Bronchitis, not specified as acute or chronic COPD exacerbation (HCC) Obstructive chronic bronchitis with exacerbation documented in this encounter [facility] note* Diagnosis Compression fracture of body of thoracic vertebra (HCC) Other closed nondisplaced fracture of proximal end of right humerus with routine healing, subsequent encounter [facility] Diagnosis Herpes zoster without complication- Primary Herpes zoster without mention of complication [facility]* Diagnosis Compression fracture of body of thoracic vertebra (HCC) Other closed nondisplaced fracture of proximal end of right humerus with routine healing, subsequent encounter documented [facility] this encounter [facility]* Diagnosis Moderate episode of recurrent major depressive disorder (HCC) documented in this encounter [facility] note* Diagnosis Falls frequently- Primary Personal history of fall Near syncope Closed head injury, initial encounter Fall, initial encounter Compression fracture of T5 vertebra, initial encounter (HCC) Compression fracture of T7 vertebra, initial encounter ([facility]) Compression fracture of T8 vertebra, initial encounter ([facility]) Compression fracture of L1 vertebra, initial encounter ([facility]) Severe malnutrition (CMS/HCC) (HCC) Nutritional marasmus Chronic back pain Unspecified backache COPD (chronic obstructive pulmonary disease) (HCC) Chronic airway obstruction, not elsewhere classified Supplemental oxygen dependent Dependence on supplemental oxygen Unintentional weight loss Loss of weight Debility Unspecified debility documented in this encounter [facility] note* Diagnosis OPENED IN ERROR- Primary To allow closing an encounter opened in error (used in [employer]) [facility] Diagnosis Pathological fracture of vertebra due to other osteoporosis with routine healing, subsequent encounter- Primary [facility]* Diagnosis Pulmonary emphysema, unspecified emphysema type (HCC) [facility]* Diagnosis Osteoporotic vertebral collapse, with routine healing, subsequent encounter- Primary [facility]* Diagnosis Fall, initial encounter- Primary Compression fracture of body of thoracic vertebra (HCC) documented in this encounter [facility] note* Diagnosis Moderate episode of recurrent major depressive disorder (HCC) [facility]* Diagnosis Compression fracture of body of thoracic vertebra (HCC) Other closed nondisplaced fracture of proximal end of right humerus with routine healing, subsequent encounter [facility] Diagnosis Pulmonary emphysema, unspecified emphysema type (HCC) [facility]* Diagnosis Osteoporotic vertebral collapse, with routine healing, subsequent encounter- Primary documented [facility]* Diagnosis Panlobular emphysema (HCC) Other emphysema Compression fracture of body of thoracic vertebra (HCC) Other closed nondisplaced fracture of proximal end of right humerus with routine healing, subsequent encounter [facility]* Diagnosis Age-related osteoporosis without current pathological fracture Senile osteoporosis [facility]* Diagnosis Panlobular emphysema (HCC) Other emphysema [facility]* Diagnosis Compression fracture of body of thoracic vertebra (HCC) Other closed nondisplaced fracture of proximal end of right humerus with routine healing, subsequent encounter [facility]* Diagnosis PAUL (generalized anxiety disorder) Generalized anxiety disorder [facility]* Diagnosis Malignant neoplasm of exocervix (HCC)- Primary Malignant neoplasm of exocervix documented in this encounter [facility] note* Diagnosis Fall, initial encounter- Primary Fall, initial encounter Facial laceration, initial encounter Closed fracture of neck of right humerus, initial encounter Humeral head fracture, right, closed, initial encounter Humeral head fracture, right, closed, initial encounter documented in this encounter [facility] note* Diagnosis Compression fracture of body of thoracic vertebra (HCC) Other closed nondisplaced fracture of proximal end of right humerus with routine healing, subsequent encounter [facility]* Diagnosis Moderate episode of recurrent major depressive disorder (HCC) documented [facility]* Diagnosis Moderate episode of recurrent major depressive disorder (HCC) PAUL (generalized anxiety disorder) Generalized anxiety disorder [facility]* Diagnosis Pulmonary emphysema, unspecified emphysema type (HCC) [facility]* Diagnosis Contusion of face, initial encounter- Primary documented in this encounter [facility] note* Diagnosis Compression fracture of body [...] healing, subsequent encounter [facility] Diagnosis Moderate episode of recurrent major depressive disorder (HCC) Compression fracture of body of thoracic vertebra (HCC) Other closed nondisplaced fracture of proximal end of right humerus with routine healing, subsequent encounter [facility] Diagnosis Panlobular emphysema (HCC)- Primary Other emphysema Moderate episode of recurrent major depressive disorder (HCC) Chronic respiratory failure with hypoxia (HCC) Chronic respiratory failure [facility] Diagnosis Compression fracture of body of thoracic vertebra (HCC) Other closed nondisplaced fracture of proximal end of right humerus with routine healing, subsequent encounter [facility] Diagnosis Chronic respiratory failure with hypoxia (HCC)- Primary Chronic respiratory failure Centrilobular emphysema (HCC) Other emphysema Adult failure to thrive Severe protein-calorie malnutrition (HCC) Other severe protein-calorie malnutrition [facility]* Diagnosis Chronic obstructive pulmonary disease, unspecified COPD type (HCC)- Primary Severe malnutrition (CMS/HCC) (HCC) Nutritional marasmus documented [facility] this [facility]* Diagnosis Adult failure to thrive- Primary [...] delirium documented in this encounter [facility]* Diagnosis PAUL (generalized anxiety disorder) Generalized anxiety disorder [facility]* Diagnosis Hospital discharge follow-up- Primary Other follow-up examination Acute on chronic respiratory failure with hypoxia (HCC) Centrilobular emphysema (HCC) Aspiration pneumonia of left lower lobe, unspecified aspiration pneumonia type (HCC) Chronic obstructive pulmonary disease with acute lower respiratory infection (HCC) History of tobacco abuse Severe malnutrition (CMS/HCC) (HCC) Nutritional marasmus [facility] Diagnosis Compression fracture of body of thoracic vertebra (HCC) Other closed nondisplaced fracture of proximal end of right humerus with routine healing, subsequent encounter [facility] Diagnosis Other specified complication of vascular prosthetic devices, implants and grafts, initial encounter (HCC)- Primary Poor venous access documented in this encounter [facility]* Diagnosis Chronic obstructive pulmonary disease with acute lower respiratory infection (HCC) documented in this encounter [facility] noteNo assessment information availableWMercy Health [facility] Work Phone: Evaluation note* Diagnosis Centrilobular emphysema (HCC)- Primary Chronic respiratory failure with hypoxia (HCC) History of tobacco abuse Severe malnutrition (CMS/HCC) (HCC) Nutritional marasmus Pulmonary nodule Other diseases of lung, not elsewhere classified documented in this encounter [facility] note* Diagnosis Centrilobular emphysema (HCC)- Primary Chronic respiratory failure with hypoxia (HCC) History of tobacco abuse Severe malnutrition (CMS/HCC) (HCC) Nutritional marasmus Pulmonary nodule Other diseases of lung, not elsewhere classified documented in this encounter [facility] note* Diagnosis COPD exacerbation (HCC)- Primary [...] Other chronic pain documented in this encounter [facility] Discharge instructions* Attachments The following attachments cannot be sent through Care Everywhere. * Acute Bronchitis Discharge Instructions, Adult (Cam[place]onian) documented in this [facility] Discharge instructions* Attachments The following attachments cannot be sent through Care Everywhere. * Closed Head Injury Discharge Instructions ([place]onian) documented in this [facility] for referral (narrative)* Diagnostic Procedure Only (Routine) - Pending Review Specialty Diagnoses / Procedures Referred By Lisa french Referred To Contact [facility] Diagnoses Encounter for screening mammogram for breast cancer Procedures [facility] SCREENING SCREENING MAMMOGRAPHY BI 2-VIEW BREAST INC Herminia Perkins MD [address] [place], [place] [id number] [facility] [address] [place] [address] Referral ID Status Reason Start Date Expiration Date Visits Requested Visits Authorized [id number] Pending Review Auto-Generat ed Referral 07/14/2022 08/13/2023 1 1 [facility] for referral (narrative)* Diagnostic Procedure Only (Routine) - Pending Review Specialty Diagnoses / Procedures Referred By Contac t Referred To Contact [facility] Diagnoses Encounter for screening mammogram for breast cancer Procedures [facility] SCREENING SCREENING MAMMOGRAPHY BI 2-VIEW BREAST INC CAD Herminia Case MD [address] [id number] [facility] [address] [place] [address] Referral ID Status Reason Start Date Expiration Date Visits Requested Visits Authorized [id number] Pending Review Auto-Generat ed Referral 06/22/2023 07/21/2024 1 1 [facility] for referral (narrative)No reason for referral information [facility] Work Phone: Reason for visit Narrative* Treatment Plan (Routine) Status Reason Specialty Diagnoses / Procedures Referred By Contact Referred To Contact Authorized Diagnoses Malignant neoplasm of exocervix (HCC) Poor venous access Ziyad Menendez MD [address] [facility] [address] [facility] [address] [place] [address] [facility] [address] [place] [address] [facility] Work Phone: Reason for visit Narrative* Treatment Plan and Therapy Plan (Routine) Status Reason Specialty Diagnoses / Procedures Referred By Contact Referred To Contact Authorized Diagnoses Malignant neoplasm of exocervix (HCC) Poor venous access Ziyad Menendez MD [address] [facility] [place] [address] [facility] [address] [place] [address] [facility] Phone: reason for visit Narrative* Treatment Plan and Therapy Plan (Routine) - Pending Review Specialty Diagnoses / Procedures [facility] Referred To Contact Diagnoses Poor venous access Other specified complication of vascular prosthetic devices, implants and grafts, initial encounter (HCC) Herminia Case MD [address] [place] [id number] [facility] [address] [place] [address] Referral ID Status Reason Start Date Expiration Date V isits Requested Visits Authorized [id number] Pending Review 08/06/2021 08/06/2022 1 1 [email or web address] Phone: reason for visit Narrative* Imaging (Routine) - Closed Specialty Diagnoses / Procedures Referred By Lisa french Referred To Contact Radiology Diagnoses Chronic obstructive pulmonary disease with acute lower respiratory infection (HCC) Procedures CT chest wo IV contrast Elyssa Tesfaye NP [address] [place] [address] Phone: tel: fax: Referral ID Status Reason Start Date Expiration Date Visits Re quested Visits Authorized [id number] Closed 08/20/2024 08/20/2025 1 1 [facility] Discharge Instructions * Pharmacy* Estee Pantoja RPH [...] doctor for further instructions HERMINIA CASE MD [phone] RED ZONE: Medical Alert Severe or unrelieved shortness of breath at rest Unrelieved chest pain Not able to do any activity because of breathing Not able to sleep because of breathing Confusion or you can't think clearly This Means You Should Call 911 Immediately documented in this encounter* Attachments The following attachments cannot be sent through Care Everywhere. * Compression Fracture: Spine (Cam[place]onian) documented in this encounter* Instructions* Ankit Zaragoza [...] Real RN - 11/05/2019 Please bring your [facility] Surgical Information folder on the day of [...] through Care Everywhere. * Hysterectomy: Abdominal: Pre-op (Cam[place]onian) * Oophorectomy: Pre-op ([place]onian) documented in this encounter* Instructions* Tani Joseph MD - 11/09/2019 Come back tomorrow for your ultrasound. If you have any chest pain or shortness of breath return tothe emergency department immediately * Attachments The following attachments cannot be sent through Care Everywhere. * Edema: Leg and Ankle (Cam[place]onian) documented in this encounter* Instructions* Jaspreet Lam, RN - 12/19/2019 SEDATION / ANALGESIA INFORMATION [...] call and ask for the Interventional Radiologist telephone services sales representative. IF YOU REPORT TO AN EMERGENCY ROOM, DOCTOR'S OFFICE OR HOSPITAL WITHIN 24 HOURS AFTER YOUR PROCEDURE, BRING THIS SHEET AND YOUR AFTER VISIT SUMMARY WITH YOU AND GIVE IT TO THE PHYSICIAN OR NURSE ATTENDING YOU.Implanted Port: What to Expect at Home Your Recovery Questions: [phone] You have had a procedure to implant [...] When should you call for help? Call 988 anytime you think you may need emergency [...] (before 7am or after 5 pm) call [phone] and ask for the Interventional Radiologist telephone services sales representative. Where can you learn more? Go to [email or web address] and sign in to your MyChart account. Enter M256 in the Search Health Information box to learn more about Implanted Port: What to Expect at Home. If you do not have an account, please click on the "Sign Up Now" link. Current as of: August 15, 2015 Content Version: 11.2 2252-1258 [employer]. Care instructions adapted under license by [employer]. If youhave questions about a medical condition or this instruction, always ask your healthcare professional. [employer] disclaims any warranty or liability for your use of this information. documented in this encounter* Attachments The following attachments cannot be sent through Care Everywhere. * COPD: General Info (Cameroonian) * Bronchitis (Cameroonian) documented in this encounter* Discharge Instr - [...] care will be provided by: [facility] [phone] * Attachments The following attachments cannot be sent through Care Everywhere. * Ischemic Stroke: General Info (Cameroonian) documented in this encounter History of Present Illness * Phillip Snyder RCP - 08/04/2019 1:28 PM EDT [facility] Respiratory Care Department Progress Note SpO2 [...] EDT Hospitalist Progress Note 08/03/2019 2:56 PM [phone]: Please page me ([phone]) for patient care issues. [phone]: Please page IMS night Hospitalist for any issues. Subjective: Admit Date: 08/02/2019 PCP: HERMINIA CASE MD Room#: [id number]/[id number] Interval History: No overnight issues. Feels better. [...] PLT 196 180 BMP: Recent Labs 08/02/19175608/03/19 0519 NA 139 134* K 3.5 3.7 [...] to improve Roland Ortiz DO [facility] Medical Services PAGER: [phone] documented in this encounter* Brandy Del Real [...] Report called to [facility]. Transfer back to [facility]. documented in this encounter* Imtiaz Mckeon RN [...] chemo appt tomorrow. documented in this encounter* Etsee Aguero RN - 02/01/2020 2:36 PM EST [...] this time. * Aparna Walter APRN - CNP - 11/23/2019 12:00 PM EDT Hospitalist Progress [...] Daily LABS: CBC: Recent Labs 11/21/19 15511/22/19 01211/23/19 0144 WBC 6.8 8.9 7.3 RBC 3.63* [...] INR 1.0 CARDIAC ENZYMES: Recent Labs 11/21/19 155 TROPONINI <0.012 Procalcitonin: Lab Results Component Value [...] 11/23/2019 11:46 AM EDT Physical Therapy Facility/Department: [facility] 4S TELEMETRY Initial Assessment NAME: Gonzalo [...] test, Allergic rhinitis, Arthritis, Asthma, Bronchitis, Cancer ([facility]), Cervical cancer ([facility]), Chest pain, COPD (chronic obstructive pulmonary disease) ([facility]), DDD (degenerative disc disease), cervical, Defect, retina, with detachment, DJD (degenerative joint disease), lumbar, Emphysema lung ([facility]), Former smoker, Hematuria, Hypokalemia, Lung nodules, Osteoporosis, Palpitations, Pneumonia, Recurrent major depression ([facility]), Sciatica, Thoracic compressionfracture ([facility]), and Vitamin D deficiency. has [...] Assistance: Independent(no device) Transfer Assistance: Independent Active Band Saw Marker: Yes Mode of Transportation: Car Occupation: On [...] for falls, Left in bed, Nurse notified [facility] Score [facility] Inpatient Mobility Raw Score : 21 (11/23/19 114) [facility] Inpatient T-Scale Score : 50.25 (11/23/19 114) Mobility Inpatient CMS 0-100% Score: 28.97 (11/23/19 114) Mobility Inpatient CMS G-Code Modifier : CJ (11/23/191140) [facility] Mobility Inpatient How much difficulty turning [...] climbing 3-5 steps with a railing?: Total [facility] Inpatient Mobility Raw Score : 21 [facility] Inpatient T-Scale Score : 50.25 Mobility [...] Recurrent major depression (HCC), Sciatica, Thoracic compressionfracture ([facility]), and Vitamin D deficiency. has [...] Assistance: Independent(no device) Transfer Assistance: Independent Active Band Saw Marker: Yes Mode of Transportation: Car Occupation: On [...] 11/22/2019 2:59 PM EDT Physical Therapy Facility/Department: [facility] TELEMETRY Initial Assessment NAME: Gonzalo Deluca [...] Granados OT * Aparna Walter APRN - [place] - 11/22/2019 2:07 PM EDT Hospitalist Progress Note 11/22/2019 2:07 PM Subjective: Admit Date: 11/21/2019 PCP: HERMINIA CASE MD Room#: [id number] Interval History: No overnight issues; feeling much [...] head/neck and MRI of the brain pending. MATH AND SCIENCE DIVISION CHAIR screened; no diet texture change recommended at [...] Accumulation: 1 - Mild Extremities(+1-2 RLE Edema) Spray Booth Operator Strength: Not Performed Estimated Daily Nutrient Needs: Energy (kcal): 5556-4346 kcals; Weight Used for Energy Requirements: [place](57kg) Protein (g): 57-68(1-1.2); Weight Used for Protein Requirements: [place](57kg) Fluid (ml/day): 1710 ml/day or per MD; Weight Used for Fluid Requirements: [place] Nutrition Related Findings: +1-2 RLE edema; K+ [...] lb (70.3 kg)(150-155# in the last month) [place] Body Weight: 125 lbs; % [place] Body Weight 124.8 % BMI: 26 Adjusted [...] Oral Nutrition Supplement, Continue current diet Contact: [phone] * Amelie Esquivel SLP - 11/22/2019 9:57 AM EDT Speech Language Pathology Patient is on a General diet. Completed speech orders as per stroke protocol. Spoke with pt and completed speech screening. No obvious facial weakness, dysarthria, or language deficits. Amelie Esquivel M.A.CCC/MATH AND SCIENCE DIVISION CHAIR Speech-Language Pathologist documented in this encounter* Florencia Torres, CHARLEY - 06/09/2020 3:30 PM EDT Patient arrived ambulatory for port flush. Port last flushed in February. Patient saw MD prior to arrival. Patient has no complaints and verbalizes understanding of POC. Med port accessed and flusheseasily. No blood return. Patient wishes not to have cathflo today due to time restraints. Wants to be scheduled in [place] for cathflo this week. Pham aware and [...] FoundDocuments on File Type Date Recorded Patient Pipe Stem Repairer Expl anation Advance Directives and Living Will Power of Correction Officer Head Latest Code Status on File Code Status [...] Documents on File Type Date Recorded Patient Pipe Stem Repairer Expl anation ACP-Advance Directive ACP-Power of Correction Officer Head Latest Code Status on File Code Status Date Activated Date Inactivated Comments Full Code 11/06/2019 12:37 PM 11/08/2019 9:35 PM Full Code 11/06/2019 7:02 AM 11/06/2019 12:22 PM Full Code 08/03/2019 5:57 PM 08/04/2019 5:09 PM Full Code 10/17/2018 1:23 AM 10/18/2018 8:29 PM Full Code 06/05/2018 7:30 AM 06/07/2018 7:14 PM Documents on File Type Date Recorded Patient Pipe Stem Repairer Expl anation ACP-Advance Directive ACP-Power of Correction Officer Head Latest Code Status on File Code Status [...] Documents on File Type Date Recorded Patient Pipe Stem Repairer Expl anation Advance Directive(s) 09/12/2020 12:26 PM Documents on File Type Date Recorded Patient Pipe Stem Repairer Expl anation Advance Directive(s) 09/12/2020 12:26 PM [...] Documents on File Type Date Recorded Patient Pipe Stem Repairer Expl anation DNR (Do Not Resuscitate) 07/31/2024 3:36 PM [place] DNR Form Date Activated Date Inactivated Comments [...] Documents on File Type Date Recorded Patient Pipe Stem Repairer Expl anation DNR (Do Not Resuscitate) 07/31/2024 3:36 PM [place] DNR Form Date Activated Date Inactivated Comments [...] Documents on File Type Date Recorded Patient Pipe Stem Repairer Expl anation DNR (Do Not Resuscitate) 01/22/2025 1:49 PM [place] DNR Form DNR (Do Not Resuscitate) 07/31/2024 3:36 PM [place] DNR Form Date Activated Date Inactivated Comments [...] Documents on File Type Date Recorded Patient Pipe Stem Repairer Expl anation DNR (Do Not Resuscitate) 01/24/2025 11:21 AM DNR (Do Not Resuscitate) 01/22/2025 1:49 PM [place] DNR Form DNR (Do Not Resuscitate) 07/31/2024 3:36 PM [place] DNR Form Date Activated Date Inactivated Comments [...] Extremity Venous Right Tani Joseph MD [address] [place] [address] Status Reason Specialty Diagnoses / Procedures Referre d By Contact Referred To Contact Closed Radiology Diagnoses Malignant neoplasm of exocervix (HCC) Procedures XA SPECIAL ANGIOGRAPHY PROCEDURE Ziyad Menendez MD [address] [facility] [place] [address] Status Reason Specialty Diagnoses / Procedures Referre d By Contact Referred To Contact Closed Radiology Diagnoses Malignant neoplasm of exocervix (HCC) Lung nodule seen on imaging study Procedures CT CHEST ABDOMEN PELVIS W CONTRAST Ziyad Menendez MD [address] [facility] [place] [address] Status Reason Specialty Diagnoses / Procedures Referre d By Contact Referred To Contact Open Radiology Diagnoses Abnormal CT of the chest Procedures CT Chest W Contrast Ziyad Menendez MD [address] [facility] [place] [address] Status Reason Specialty Diagnoses / Procedures Referred By Contact Referred To Contact Open Specialty Services Required Orthopedic Surgery Diagnoses Closed fracture of coccyx, initial encounter (HCC) Lauren Lutz APRN - NAILING MACHINE OPERATOR [address] [place] [address] [facility] [address] [address] [place] [address] Scheduling Instructions [facility] Orthopedics [facility] [address] [place] [address] Specialty Diagnoses / Procedures Referred By Contac t Referred To Contact Pulmonary and Critical Care Medicine Diagnoses Panlobular emphysema (HCC) Chronic respiratory failure with hypoxia (HCC) Procedures CONSULT TO PULM/CRITICAL CARE OFFICE/OUTPATIENT [facility] 60-74 MINUTES Herminia Case MD [address] [place] [address] Referral ID Status Reason Start Date Expiration Date Visits Requested Visits Authorized [id number] Pending Review PCP Requested Referral 08/06/2021 08/06/2022 1 1 Specialty Diagnoses / Procedures Referred By Contac t Referred To Contact BR IMAGING Diagnoses Encounter for screening mammogram for malignant neoplasm of breast Procedures PAOLO SCREENING W CARON SCREENING DIGITAL BREAST TOMOSYNTHESIS BI SCREENING MAMMOGRAPHY BI 2-VIEW BREAST INC CAD Herminia Case MD [address] [place] [address] Br Imaging [address] [place] [address] Referral ID Status Reason Start Date Expiration Date Visits Requested Visits Authorized [id number] Pending Review Auto-Generat ed Referral 08/06/2021 09/05/2022 1 1 Specialty Diagnoses / Procedures Referred By Contac t Referred To Contact Radiology Diagnoses Malignant neoplasm of exocervix (HCC) Abnormal chest CT Procedures CT Chest W Contrast Ziyad Menendez MD [address] [facility] [place] [address] Referral ID Status Reason Start Date Expiration Date Visits Re quested Visits Authorized [id number] Closed 09/17/2021 09/17/2022 1 1 Specialty Diagnoses / Procedures Referred By Contac t Referred To Contact Gena Michaels, SYSTEMS ANALYSIS MANAGER.[facility] [address] [place] [address] Referral ID Status Reason Start Date Expiration Date V isits Requested Visits Authorized [id number] Pending Review 1 1 Specialty Diagnoses / Procedures Referred By Contac t Referred To Contact Radiology Diagnoses Malignant neoplasm of exocervix (HCC) Procedures CT chest wo IV contrast Kisha Pepe APRN - [facility] [address] [facility] [address] [place] [address] Referral ID Status Reason Start Date Expiration Date V isits Requested Visits Authorized [id number] Pending Review 10/20/2022 04/18/2023 1 1 Specialty Diagnoses / Procedures Referred By Contac t Referred To Contact Diagnoses Family history of breast cancer Malignant neoplasm of exocervix (HCC) Procedures CONSULT TO MEDICAL GENETICS - CANCER MEDICAL GENETICS COUNSELING EACH 30 MINUTES Herminia Case MD [address] [place] [address] [facility] [address] [place] [address] Referral ID Status Reason Start Date Expiration Date Visits Requested Visits Authorized [id number] Pending Review PCP Requested Referral Auto-Generate d Referral 05 2801/14/2024 1 1 Hospital Course Note Gynecology Oncology [...] am LABWORK September 17, 2024 5:00 am [facility] LAB WORK September 17, 2024 9: 00am [facility] LAB WORK October 01, 2024 5: 00am [...] venous access Ziyad Menendez MD [address] [facility] [place] [address] [facility] [address] [place] [address] Reason Comments Fall Elbow Pain Tailbone Pain [...] Chest W Contrast Ziyad Menendez MD [address] [facility] [place] [address] Referral ID Status Reason Start Date Expiration Date Visits Re quested Visits Authorized [id number] Closed 09/17/2021 09/17/2022 1 1 Reason Comments [...] By Lisa t Referred To Contact Diagnoses Closed displaced intertrochanteric fracture of left femur, initial encounter ([facility]) Procedures . Dave Whipple DO [address] [place] [address] [facility] 4s Telemetry [address] [place] [address] Referral ID Status Reason Start Date Expiration Date Visits Re quested Visits Authorized [id number] 1 1 Reason Onset Date Comments Refill [...] time. Specialty Diagnoses / Procedures Referred By Lisa t Referred To Contact Diagnoses Multiple falls Fall, initial encounter Lumbar compression fracture, closed, initial encounter ([facility]) Procedures . Lauren Serna MD [address] [address] Referral ID Status Reason Start Date Expiration Date Visits Re quested Visits Authorized [id number] 1 1 Reason Onset Date Comments Refill [...] Reason Comments Electronic Communication FAX from [place] E naveenon is going to be coming over that [...] SOB. Specialty Diagnoses / Procedures Referred By Lisa t Referred To Contact Diagnoses Near syncope Closed head injury, initial encounter Fall, initial encounter Compression fracture of T7 vertebra, initial encounter (HCC) Compression fracture of T8 vertebra, initial encounter (HCC) Compression fracture of T5 vertebra, initial encounter (HCC) Compression fracture of L1 vertebra, initial encounter (HCC) Procedures r55 Nickolas Marrero MD [address] [place] [address] [facility] [address] [place] [address] Referral ID Status Reason Start Date Expiration Date Visits Re quested Visits Authorized [id number] 1 1 Reason Onset Date Comments Opened In Error 10/06/2023 Reason Comments Home Care Physical therapy del ayed 1 week Reason Onset Date Comments Home Care Management 10/06/2023 Home care C ert[facility] .For cert dates 09/26/2023 - 11/24/2023 that were signed on 10/10/2023.[facility]'s home health 485 form / care plan [...] To Contact Diagnoses Fall, initial encounter Procedures [facility] [id number] ...[facility] Dual Complete active per [employer] eff 03/21/22 ...auth required ...pending auth ref# [id number] ...UM to fax clinical to [phone] Dianne Dalei [address] [place] [id number] [facility] Emergency Dept [address] [place] [address] Referral ID Status Reason Start Date Expiration Date Visits Re quested Visits Authorized [id number] 1 1 Reason Onset Date Comments Refill [...] initial encounter Procedures . Lauren Serna MD [address] [place] [address] Phone: tel: fax: [facility] Cardiac Progressive Care Unit PCU 2E [address] [place] [address] Phone: tel: Referral ID Status Reason Start Date Expiration Date Visits Re quested Visits Authorized [id number] 1 1 Reason Comments Hospital Follow-up COPD,PSA/MSSA/STREP [...] Contact Diagnoses COPD exacerbation (HCC) Procedures . Boy Lynn MD [address] [place] [address] Phone: tel: fax: [facility] ED [address] [place] [address] Phone: tel: fax: Referral ID Status Reason Start Date Expiration Date Visits Re quested Visits Authorized [id number] 1 1 INFORMATION SOURCE (unrecogn ized section and content) DATE CREATED AUTHOR 10/12/2019 [facility] DATE CREATED AUTHOR AUTHOR'S ORGANIZ ATION 11/14/2019 [facility] DATE CREATED AUTHOR AUTHOR'S ORGANIZ ATION 06/13/2020 [facility] DATE CREATED AUTHOR AUTHOR'S ORGANIZ ATION 09/13/2020 [facility] DATE CREATED AUTHOR AUTHOR'S ORGANIZ ATION 12/19/2021 [facility] DATE CREATED AUTHOR AUTHOR'S ORGANIZ ATION 07/31/2024 [facility] DATE CREATED AUTHOR AUTHOR'S ORGANIZ ATION 01/25/2025 [facility] DATE CREATED AUTHOR AUTHOR'S ORGANIZ ATION 01/28/2025 [facility] Ordered Prescriptions (unrec ognized section and [...] Sheldon, CHARLEY)1645 (Stopped - Provider: Erna Sheldon, RN) 0052 (New Bag - Provider: Tona [...] Erna Sheldon, CHARLEY)1444 (Given - Provider: Erna Sheldon, CHARLEY)1850 (Given - Provider: Erna Sheldon RN) 0048 (Given - Provider: Tona Barroso CHARLEY)0855 (Given - Provider: Austyn Bee RN)1323 (Given - Provider: Austyn Bee RN) oxyCODONE (Roxicodone) immediate release tablet 5 mg(Linked Group 4) 5 mg, Oral, Every 4 hours PRN, moderate pain (4-6), Starting on 11/07/22 at 0939, Phase II/On Unit 1013 (See Alternative - Provider: Erna Sheldon RN)1444 (See Alternative - Provider: Erna Sheldon, CHARLEY)1850 (See Alternative - Provider: Erna Sheldon, CHARLEY) 0048 (See Alternative - Provider: Tona Barroso [...] at 2100 2100 (Given - Provider: Vicente Enciso, RN) 210 (Given - Provider: Cheryl Valdivia, RN) 2100 (Canceled Entry - Provider: Automatic [...] 2101 (Given - Provider: Vicente Enciso RN) 2104 [...] 0923 (Given - Provider: [place], CHARLEY) gabapentin (Neurontin) tablet 600 mg 600 [...] RN) 1120 (Given - Provider: ARMIN DE OLIVERIA) 0923 (Given - Provider: [place] RN) [...] - Provider: Cheryl Valdivia RN) HYDROcodone-acetaminophe n ([place]) 5-325 MG per tablet 1 tablet (CANCELED)(Linked [...] pupils, RR < 8; notify primary team telephone services sales representative if used ondansetron (Zofran) injection 4 mg(Linked [...] dose 0712 (Given - Provider: Jessica Iqbal [facility]) Linked Groups Order Group 1: acetaminophen (Tylenol) [...] sources in 24 hours. Group 2: HYDROcodone-acetaminophen ([place]) 5-325 MG per tablet 1 tablet (CANCELED)Jump to med 1 tablet, Oral, Every 4 hours PRN, moderate pain (4-6), Starting on Tue02/17/23 at 0706, Maximum dose of acetaminophen is 4000 mg from all sources in 24 hours. Or HYDROcodone-acetaminophen ([place]) 5-325 MG per tablet 2 tablet (CANCELED) [...] sodium chloride 0.9 % 250 mL IVPB (ADD-Olive) (COMPLETED) 500 mg, IntraVENous, Administer over 60 Minutes, Once, On 08/07/23 at 1520, For 1 dose, ADD-Olive bag, Suspected Indication (Select all that apply): [...] RN) 0832 (Given - Provider: Jennifer Montes RN)2131 (Given - Provider: Maeve Ryan, CHARLEY) 0805 (Given - Provider: Phillip Dee RN) montelukast (Singulair) tablet 10 mg 10 mg, Oral, Nightly, First dose on Tue09/20/23 at 0000 0013 (Given - Provider: Suzette Davis, RN)2121 (Given - Provider: Maeve Ryan, CHARLEY) [...] 0000 0014 (Given - Provider: Suzette Davis, CHARLEY)2121 (Given - Provider: Maeve Ryan, CHARLEY) senna-docusate [...] sedation for opioid reversal - MUST notify telephone services sales representative provider immediately after first dose, may give [...] (Medication Linda lied - Provider: Ray Isaac RN)223 (Due: Medication Removed - Provider: Automatic Discharge [...] 1999 (Given - Provider: Jennifer Hartley RN) sertraline [...] 24 hours. 0101 (Given - Provider: Jennifer Harltey RN) albuterol 108 (90 Base) MCG/ACT inhaler [...] Hartley RN)0748 (Given - Provider: Patsy Wynn, RN)1429 [...] hours. 0841 (Given - Provider: Neelam Badillo, RN)2024 (Given - Provider: Waldemar Holbrook, RN) 09 (Given - Provider: Lizett Rizvi, CHARLEY)2038 (Given - Provider: Sadie Rodriguez RN) 101 (Given - Provider: Gabriela Rosa, CHARLEY) albuterol (2.5 MG/3ML) 0.083% nebulizer solution 2.5 mg 2.5 mg, Nebulization, 2 times daily, First dose on Tue08/04/24 at 0800, Initiate RT Bronchodilator Protocol? Yes 0911 (Given - Provider: Phillip Snyder BOTTOM STEEP TENDER)2028 (Given - Provider: DICK SpenceP) 0838 (Given - Provider: Rosa Fiore BOTTOM STEEP TENDER)2026 (Given - Provider: Luz Pruett, BEEF GRINDER) 0859 (Given - Provider: Kimber Alvarado BOTTOM STEEP TENDER) aspirin EC tablet 81 mg 81 mg, [...] Rizvi, CHARLEY) 0829 (Given - Provider: Gabriela Rosa RN) busPIRone (Buspar) tablet 15 mg 15 mg, Oral, 2 times daily, First dose on Tue07/30/24 at 2310 0842 (Given - Provider: Neelam Badillo RN)2026 (Given - Provider: Waldemar Holbrook RN) 0900 (Given - Provider: Lizett Rizvi, RN)2239 (Given - Provider: Sadie Rodriguez, CHARLEY) 0829 (Given - Provider: Gabriela Rosa RN) [...] Rizvi, RN)1612 (New Bag - Provider: Lizett Rizvi, CHARLEY)203 (Stopped - Provider: Sadie Rodriguez RN) 0019 (New Bag - Provider: Sadie Rodriguez RN)0410 (Stopped - Provider: Sadie Rodriguez RN)0834 (New Bag - Provider: Gabriela Rosa RN)1239 (Stopped - Provider: Gabriela Rosa, CHARLEY) cetirizine (ZyrTEC) tablet 5 mg 5 mg, Oral, Daily, First dose on Tue08/01/24 at 1815 0842 (Given - Provider: Neelam Badillo, CHARLEY) 0859 (Given - Provider: Lizett Rizvi, CHARLEY) 0828 (Given - Provider: Gabriela Rosa, RN) enoxaparin (Lovenox) syringe 30 mg 30 mg, SubCUTAneous, Every 24 hours scheduled (Daily), First dose on Tue07/31/24 at 0900, Indication of Use: Prophylaxis-DVT/PE, Indications: Prophylaxis of Venous Thromboembolism 0840 (Given - Provider: Neelam Badillo, CHARLEY) 0900 (Given - Provider: Lizett Rizvi RN) [...] Provider: Gabriela Rosa RN) predniSONE (Deltasone) tablet 10 mg (COMPLETED)(Linked Group [...] Linda Brasher RN)0856 (Given - Provider: Neelam Justino, RN)1412 (Given - Provider: Neelam Badillo RN)1851 (Given - Provider: Neelam Badillo, RN) 0046 (Given - Provider: Waldemar Holbrook RN)0515 (Given - Provider: Waldemar Holbrook RN)0914 (Given - Provider: Lizett Rizvi, RN)1325 [...] sedation for opioid reversal - MUST notify telephone services sales representative provider immediately after first dose, may give [...] - Provider: Sadie Rodriguez RN) sodium chloride ([place]) 0.65 % nasal spray 2 spray 2 [...] or split. 0808 (Given - Provider: Freddy Hoover, RN) 0829 (Given - Provider: Leyla Salazar, RN) 0809 (Given - Provider: Maria Alejandra Medina, RN) buPROPion XL (Wellbutrin XL) 24 hr tablet 150 mg 150 mg, Oral, Daily, First dose on 01/12/25 at 1400, Do not crush, chew, or split. 0808 (Given - Provider: Freddy Hoover, CHARLEY) 0829 (Given - Provider: Leyla Salazar, CHARLEY) 08 (Given - Provider: Maria Alejandra Medina, RN) busPIRone (Buspar) tablet 15 mg 15 mg, Oral, 2 times daily, First dose on 01/12/25 at 1400 0808 (Given - Provider: Freddy Hoover, RN)1940 (Given - Provider: Leola Tobar, CHARLEY) 0829 (Given - Provider: Leyla Salazar, CHARLEY)2033 (Given - Provider: Evangelina Sorto, CHARLEY) 0809 (Given - Provider: Maria Alejandra Medina, RN)2021 (Given - Provider: Jessica Gallardo, CHRALEY) cefepime (Maxipime) 2,000 mg in sodium chloride 0.9 % 50 mL IVPB Mini-Bag Plus (COMPLETED) 2,000 mg, IntraVENous, at 12.5 mL/hr, Administer over 4 Hours, Every 8 hours, First dose on 01/12/25 at 1330, For 28 doses, Mini-Bag Plus bag, Suspected Indication (Select all that apply): Pneumonia (CAP) 0054 (New Bag - Provider: Jessica Gallardo, CHARLEY)0515 (Stopped - Provider: Jessica Gallardo, RN)0810 (New Bag - Provider: Freddy Hoover, CHARLEY)1258 (Stopped - Provider: Freddy Hoover, CHARLEY)1724 (New Bag - Provider: Freddy Hoover, RN)2137 (Stopped - Provider: Leola Tobar RN) 0137 (New Bag - Provider: Leola Tobar RN)0542 (Stopped - Provider: Leola Tobar RN)0829 (New Bag - Provider: Leyla Salazar RN)1222 (Stopped - Provider: Leyla Salazar RN)1721 (New Bag - Provider: Leyla Salazar RN)212 (Stopped - Provider: Evangelina Sorto RN) cholecalciferol (Vitamin D-3) tablet 2,000 Units 2,000 Units, Oral, Daily, First dose on Tue01/19/25 at 0900 0808 (Given - Provider: Freddy Hoover RN) 0835 (Given - Provider: Leyla Salazar RN) 0811 (Given - Provider: Maria Alejandra Medina RN) Diclofenac Sodium (Voltaren) 1 % gel 2 g 2 g, Topical, 2 times daily, First dose on Tue01/18/25 at 1230, Apply to: neck pain 0144 (Given - Provider: Jessica Gallardo RN)0809 (Given - Provider: Freddy Hoover RN)211 (Not Given - Provider: Leola Tobar RN - Reason: Patient/family refused) 0841 (Not Given - Provider: Leyla Salazar RN - Reason: Patient/family refused)2016 (Not Given - Provider: Evangelina Sorto RN - Reason: Patient/family refused) 132 (Not Given - Provider: Maria Alejandra Medina RN - Reason: Patient/family refused)2024 (Not Given [...] RN) 0809 (Given - Provider: Maria Alejandra Medina RN) fluticasone (Flonase) nasal spray 2 spray 2 spray, Each Nostril, Daily, First dose on Tue01/15/25 at 1100, Shake gently. Before first use, prime pump (press 6 times until fine spray appears). After use, clean tip and replace cap. 0809 (Given - Provider: Freddy Hoover RN) 0842 (Not Given - Provider: Leyla Salazar RN - Reason: Patient/family refused) 08 (Given - Provider: Maria Alejandra Medina, RN) folic acid (Folvite) tablet 1 mg 1 mg, Oral, Daily, First dose on Tue01/12/25 at 1400 0808 (Given - Provider: Freddy Hoover RN) 0829 (Given - Provider: Leyla Salazar, RN) 08 (Given - Provider: Maria Alejandra Medina, RN) guaiFENesin (Mucinex) 12 hr tablet 600 mg 600 mg, Oral, 2 times daily, First dose on Tue01/14/25 at 0900, Administer with plenty of fluids to ensure proper action. Do not crush, chew, or split. 0808 (Given - Provider: Freddy Hoover RN)1940 (Given - Provider: Leola Tobar RN) 0829 (Given - Provider: Leyla Salazar, RN)2033 (Given - Provider: Evangelina Sorto, CHARLEY) 08 (Given - Provider: Maria Alejandra Medina, CHARLEY)2021 (Given - Provider: Jessica Gallardo, CHARLEY) influenza vaccine A&B surf ant adjuvanted (Fluad) HIGH-DOSE injection 0.5 mL 0.5 mL, IntraMUSCular, Prior to discharge, Starting on Tue01/12/25 at 1317, For 1 dose ipratropium-albuterol (Duo-Neb) 0.5-2.5 mg/3 mL nebulizer solution 3 mL 3 mL, Nebulization, 3 times daily, First dose (after last modification) on Tue01/15/25 at 2000 0909 (Given - Provider: Yesenia Salas RCP)1342 (Given - Provider: Yesenia Salas RCP)194 (Given - Provider: Antolin Jose, BEEF GRINDER) 0954 (Given - Provider: Kaykay Ambriz RCP)1456 (Given - Provider: Kaykay Ambriz RCP)1951 (Given - Provider: Tanya Sanderson) 09 (Given - Provider: Meri Ramon)1409 (Given - Provider: Kaykay Ambriz RCP)2031 (Given - Provider: Kaylene Cooper RCP) melatonin tablet 3 mg 3 mg, Oral, Nightly, First dose on Tue01/12/25 at 2099 1940 (Given - Provider: Leola [...] Sorto RN) 2021 (Given - Provider: Jessica Gallardo RN) mometasone-formoterol (Dulera 100) 100-5 MCG/ACT inhaler 2 puff 2 puff, Inhalation, 2 times daily, First dose on Tue01/15/25 at 0900, Administer using an inhaler spacer. Rinse mouth with water after use to reduce aftertaste and incidence of candidiasis. Do not swallow. 0809 (Given - Provider: Freddy Hoover RN)1943 (Given - Provider: Leola Tobar RN) 0834 (Given - Provider: Leyla Salazar RN)2029 (Given - Provider: Evangelina Sorto, CHARLEY) 0811 (Given - Provider: Maria Alejandra Medina RN)2023 (Given - Provider: Jessica Gallardo, CHARLEY) montelukast (Singulair) tablet 10 mg 10 mg, Oral, Nightly, First dose on 01/12/25 at 2099 1940 (Given - Provider: Leola Tobar RN) 2033 (Given - Provider: Evangelina Sorto, CHARLEY) 2021 (Given - Provider: Jessica Gallardo, CHARLEY) pantoprazole (ProtoNix) EC tablet 40 mg 40 mg, Oral, Every morning, First dose on Tue01/12/25 at 1400, Do not crush, chew, or split. 0808 (Given - Provider: Freddy Rekstis, RN) 0828 (Given - Provider: Leyla Salazar RN) 0807 (Given - Provider: Maria Alejandra Medina, RN) predniSONE (Deltasone) tablet 10 mg(Linked Group 1) 10 mg, Oral, Daily, First dose on Tue01/24/25 at 0900, For 3 doses predniSONE (Deltasone) tablet 20 mg(Linked Group 1) 20 mg, Oral, Daily, First dose on Tue01/21/25 at 0900, For 3 doses 0828 (Given - Provider: Leyla Salazar RN) 0807 (Given - Provider: Maria Alejandra Medina RN) predniSONE (Deltasone) tablet 30 mg (COMPLETED)(Linked Group [...] refused)2033 (Given - Provider: Evangelina Sorto RN) 0808 (Given - Provider: Maria Alejandra Medina, CHARLEY)2024 (Not Given - Provider: Jessica Gallardo, CHARLEY - Reason: Patient/family refused) sodium chloride 3 % hypertonic nebulizer solution 4 mL 4 mL, Nebulization, 2 times daily, First dose on Tue01/14/25 at 0900 0917 (Given - Provider: Yesenia Salas RCP)1947 (Given - Provider: Antolin Jose, BEEF GRINDER) 100 (Given - Provider: Kaykay Ambriz RCP)1952 (Given - Provider: Tanya Sanderson) 922 (Given - Provider: Meri Ramon)2039 (Given - Provider: Kaylene Cooper RCP) PRN Medication Order 01/20/2025 01/21/2025 01/22/2025 acetaminophen (Tylenol) tablet 650 mg 650 mg, Oral, Every 6 hours PRN, mild pain (1-3), Starting on 01/13/25 at 1350, Maximum dose of acetaminophen is 4000 mg from all sources in 24 hours. 0142 (Given - Provider: Jessica Gallardo, RN) 1556 (Given - Provider: Maria Alejandra Medina, RN) albuterol (2.5 MG/3ML) 0.083% nebulizer solution 2.5 mg 2.5 mg, Nebulization, Every 2 hour PRN, wheezing, Starting on 01/12/25 at 1314, Initiate RT Bronchodilator Protocol: hydrOXYzine pamoate (Vistaril) capsule 25 mg 25 mg, Oral, Every 12 hours PRN, anxiety, Starting on 01/20/25 at 1729 1818 (Given - Provider: Freddy Hoover RN) 1059 (Given - Provider: Leyla Salazar, CHARLEY)2238 (Given - Provider: Evangelina Sorto, RN) 1213 (Given - Provider: Maria Alejandra Medina, CHARLEY) methocarbamol (Robaxin) tablet 500 mg 500 mg, Oral, Every 8 hours PRN, muscle spasms, Starting on 01/14/25 at 1632 1437 (Given - Provider: Leyla Salazar, CHARLEY)2238 (Given - Provider: Evangelina Sorto, RN) 1213 (Given - Provider: Maria Alejandra Medina, CHARLEY)2021 (Given - Provider: Jessica Gallardo, CHARLEY) naloxone (Narcan) injection 0.4 mg 0.4 mg, IntraVENous, Every 5 min PRN, opioid reversal, respiratory depression, over sedation, RR <10, pinpoint pupils, Starting on 01/12/25 at 1314, +++notify telephone services sales representative provider if used+++ ondansetron (Zofran) injection 4 [...] administering. 0834 (Given - Provider: Leyla Salazar, CHARLEY) oxyCODONE (Roxicodone) immediate release tablet 15 mg 15 mg, Oral, Every 6 hours PRN, moderate pain (4-6), severe pain (7-10), or SOB, Starting on Tue01/15/25 at 1055 0650 (Given - Provider: Jessica Gallardo, CHARLEY)1324 (Given - Provider: Freddy Hoover RN)1941 (Given - Provider: Leola Tobar, CHARLEY) 0137 (Given - Provider: Leola Tobar, RN)0828 (Given - Provider: Leyla Salazar, CHARLEY)1437 (Given - Provider: Leyla Salazar RN)203 (Given - Provider: Evangelina Sorto, CHARLEY) 0808 (Given - Provider: Maria Alejandra Medina, CHARLEY)1417 (Given - Provider: Maria Alejandra Medina, CHARLEY)2019 (Given - Provider: Jessica Gallardo, CHARLEY) QUEtiapine (SEROquel) tablet 50 mg 50 mg, Oral, Nightly PRN, Anxiety and Sleep, Starting on 01/12/25 at 1314 2138 (Given - Provider: Leola Tobar RN) 2033 [...] on Tue01/21/25 at 0900, For 3 doses Followed by [...] or prosecute any alcohol or drug abuse patient.[facility]In the event this information is protected by the Federal Confidentiality of Alcohol and Drug Abuse Patient Records regulations: The Federal rules restrict any use of the information to criminally investigate or prosecute any alcohol or drug abuse patient.[facility] HospitalIn the event this information is protected by the Federal Confidentiality of Alcohol and Drug Abuse Patient Records regulations: The Federal rules restrict any use of the information to criminally investigate or prosecute any alcohol or drug abuse patient.[facility] HospitalIn the event this information is protected by the Federal Confidentiality of Alcohol and Drug Abuse Patient Records regulations: The Federal rules restrict any use of the information to criminally investigate or prosecute any alcohol or drug abuse patient.[facility] HospitalIn the event this information is protected by the Federal Confidentiality of Alcohol and Drug Abuse Patient Records regulations: The Federal rules restrict any use of the information to criminally investigate or prosecute any alcohol or drug abuse patient.[facility] HospitalIn the event this information is protected by the Federal Confidentiality of Alcohol and Drug Abuse Patient Records regulations: The Federal rules restrict any use of the information to criminally investigate or prosecute any alcohol or drug abuse patient.[facility] HospitalIn the event this information is protected by the Federal Confidentiality of Alcohol and Drug Abuse Patient Records regulations: The Federal rules restrict any use of the information to criminally investigate or prosecute any alcohol or drug abuse patient.[facility] HospitalIn the event this information is protected by the Federal Confidentiality of Alcohol and Drug Abuse Patient Records regulations: The Federal rules restrict any use of the information to criminally investigate or prosecute any alcohol or drug abuse patient.[facility] HospitalIn the event this information is protected by the Federal Confidentiality of Alcohol and Drug Abuse Patient Records regulations: The Federal rules restrict any use of the information to criminally investigate or prosecute any alcohol or drug abuse patient.[facility] HospitalIn the event this information is protected by the Federal Confidentiality of Alcohol and Drug Abuse Patient Records regulations: The Federal rules restrict any use of the information to criminally investigate or prosecute any alcohol or drug abuse patient.[facility] HospitalIn the event this information is protected by the Federal Confidentiality of Alcohol and Drug Abuse Patient Records regulations: The Federal rules restrict any use of the information to criminally investigate or prosecute any alcohol or drug abuse patient.[facility] HospitalIn the event this information is protected by the Federal Confidentiality of Alcohol and Drug Abuse Patient Records regulations: The Federal rules restrict any use of the information to criminally investigate or prosecute any alcohol or drug abuse patient.[facility] HospitalIn the event this information is protected by the Federal Confidentiality of Alcohol and Drug Abuse Patient Records regulations: The Federal rules restrict any use of the information to criminally investigate or prosecute any alcohol or drug abuse patient.[facility] HospitalIn the event this information is protected by the Federal Confidentiality of Alcohol and Drug Abuse Patient Records regulations: The Federal rules restrict any use of the information to criminally investigate or prosecute any alcohol or drug abuse patient.[facility] HospitalIn the event this information is protected by the Federal Confidentiality of Alcohol and Drug Abuse Patient Records regulations: The Federal rules restrict any use of the information to criminally investigate or prosecute any alcohol or drug abuse patient.[facility] HospitalIn the event this information is protected by the Federal Confidentiality of Alcohol and Drug Abuse Patient Records regulations: The Federal rules restrict any use of the information to criminally investigate or prosecute any alcohol or drug abuse patient.[facility] HospitalIn the event this information is protected by the Federal Confidentiality of Alcohol and Drug Abuse Patient Records regulations: The Federal rules restrict any use of the information to criminally investigate or prosecute any alcohol or drug abuse patient.[facility] HospitalIn the event this information is protected by the Federal Confidentiality of Alcohol and Drug Abuse Patient Records regulations: The Federal rules restrict any use of the information to criminally investigate or prosecute any alcohol or drug abuse patient.[facility] HospitalIn the event this information is protected by the Federal Confidentiality of Alcohol and Drug Abuse Patient Records regulations: The Federal rules restrict any use of the information to criminally investigate or prosecute any alcohol or drug abuse patient.[facility] HospitalIn the event this information is protected by the Federal Confidentiality of Alcohol and Drug Abuse Patient Records regulations: The Federal rules restrict any use of the information to criminally investigate or prosecute any alcohol or drug abuse patient.[facility] HospitalIn the event this information is protected by the Federal Confidentiality of Alcohol and Drug Abuse Patient Records regulations: The Federal rules restrict any use of the information to criminally investigate or prosecute any alcohol or drug abuse patient.[facility] HospitalIn the event this information is protected by the Federal Confidentiality of Alcohol and Drug Abuse Patient Records regulations: The Federal rules restrict any use of the information to criminally investigate or prosecute any alcohol or drug abuse patient.[facility] HospitalIn the event this information is protected by the Federal Confidentiality of Alcohol and Drug Abuse Patient Records regulations: The Federal rules restrict any use of the information to criminally investigate or prosecute any alcohol or drug abuse patient.[facility] HospitalIn the event this information is protected by the Federal Confidentiality of Alcohol and Drug Abuse Patient Records regulations: The Federal rules restrict any use of the information to criminally investigate or prosecute any alcohol or drug abuse patient.[facility] HospitalIn the event this information is protected by the Federal Confidentiality of Alcohol and Drug Abuse Patient Records regulations: The Federal rules restrict any use of the information to criminally investigate or prosecute any alcohol or drug abuse patient.[facility] HospitalIn the event this information is protected by the Federal Confidentiality of Alcohol and Drug Abuse Patient Records regulations: The Federal rules restrict any use of the information to criminally investigate or prosecute any alcohol or drug abuse patient.[facility] HospitalIn the event this information is protected by the Federal Confidentiality of Alcohol and Drug Abuse Patient Records regulations: The Federal rules restrict any use of the information to criminally investigate or prosecute any alcohol or drug abuse patient.[facility] HospitalIn the event this information is protected by the Federal Confidentiality of Alcohol and Drug Abuse Patient Records regulations: The Federal rules restrict any use of the information to criminally investigate or prosecute any alcohol or drug abuse patient.[facility] HospitalIn the event this information is protected by the Federal Confidentiality of Alcohol and Drug Abuse Patient Records regulations: The Federal rules restrict any use of the information to criminally investigate or prosecute any alcohol or drug abuse patient.[facility] HospitalIn the event this information is protected by the Federal Confidentiality of Alcohol and Drug Abuse Patient Records regulations: The Federal rules restrict any use of the information to criminally investigate or prosecute any alcohol or drug abuse patient.[facility] HospitalIn the event this information is protected by the Federal Confidentiality of Alcohol and Drug Abuse Patient Records regulations: The Federal rules restrict any use of the information to criminally investigate or prosecute any alcohol or drug abuse patient.[facility] HospitalIn the event this information is protected by the Federal Confidentiality of Alcohol and Drug Abuse Patient Records regulations: The Federal rules restrict any use of the information to criminally investigate or prosecute any alcohol or drug abuse patient.[facility] HospitalIn the event this information is protected by the Federal Confidentiality of Alcohol and Drug Abuse Patient Records regulations: The Federal rules restrict any use of the information to criminally investigate or prosecute any alcohol or drug abuse patient.[facility] HospitalIn the event this information is protected by the Federal Confidentiality of Alcohol and Drug Abuse Patient Records regulations: The Federal rules restrict any use of the information to criminally investigate or prosecute any alcohol or drug abuse patient.[facility] HospitalIn the event this information is protected by the Federal Confidentiality of Alcohol and Drug Abuse Patient Records regulations: The Federal rules restrict any use of the information to criminally investigate or prosecute any alcohol or drug abuse patient.[facility] HospitalIn the event this information is protected by the Federal Confidentiality of Alcohol and Drug Abuse Patient Records regulations: The Federal rules restrict any use of the information to criminally investigate or prosecute any alcohol or drug abuse patient.[facility] HospitalIn the event this information is protected by the Federal Confidentiality of Alcohol and Drug Abuse Patient Records regulations: The Federal rules restrict any use of the information to criminally investigate or prosecute any alcohol or drug abuse patient.[facility] HospitalIn the event this information is protected by the Federal Confidentiality of Alcohol and Drug Abuse Patient Records regulations: The Federal rules restrict any use of the information to criminally investigate or prosecute any alcohol or drug abuse patient.[facility] HospitalIn the event this information is protected by the Federal Confidentiality of Alcohol and Drug Abuse Patient Records regulations: The Federal rules restrict any use of the information to criminally investigate or prosecute any alcohol or drug abuse patient.[facility] HospitalIn the event this information is protected by the Federal Confidentiality of Alcohol and Drug Abuse Patient Records regulations: The Federal rules restrict any use of the information to criminally investigate or prosecute any alcohol or drug abuse patient.[facility] HospitalIn the event this information is protected by the Federal Confidentiality of Alcohol and Drug Abuse Patient Records regulations: The Federal rules restrict any use of the information to criminally investigate or prosecute any alcohol or drug abuse patient.[facility] HospitalIn the event this information is protected by the Federal Confidentiality of Alcohol and Drug Abuse Patient Records regulations: The Federal rules restrict any use of the information to criminally investigate or prosecute any alcohol or drug abuse patient.[facility] HospitalIn the event this information is protected by the Federal Confidentiality of Alcohol and Drug Abuse Patient Records regulations: The Federal rules restrict any use of the information to criminally investigate or prosecute any alcohol or drug abuse patient.[facility] HospitalIn the event this information is protected by the Federal Confidentiality of Alcohol and Drug Abuse Patient Records regulations: The Federal rules restrict any use of the information to criminally investigate or prosecute any alcohol or drug abuse patient.[facility] HospitalIn the event this information is protected by the Federal Confidentiality of Alcohol and Drug Abuse Patient Records regulations: The Federal rules restrict any use of the information to criminally investigate or prosecute any alcohol or drug abuse patient.[facility] HospitalIn the event this information is protected by the Federal Confidentiality of Alcohol and Drug Abuse Patient Records regulations: The Federal rules restrict any use of the information to criminally investigate or prosecute any alcohol or drug abuse patient.[facility] HospitalIn the event this information is protected by the Federal Confidentiality of Alcohol and Drug Abuse Patient Records regulations: The Federal rules restrict any use of the information to criminally investigate or prosecute any alcohol or drug abuse patient.[facility] HospitalIn the event this information is protected by the Federal Confidentiality of Alcohol and Drug Abuse Patient Records regulations: The Federal rules restrict any use of the information to criminally investigate or prosecute any alcohol or drug abuse patient.[facility] HospitalIn the event this information is protected by the Federal Confidentiality of Alcohol and Drug Abuse Patient Records regulations: The Federal rules restrict any use of the information to criminally investigate or prosecute any alcohol or drug abuse patient.[facility] HospitalIn the event this information is protected by the Federal Confidentiality of Alcohol and Drug Abuse Patient Records regulations: The Federal rules restrict any use of the information to criminally investigate or prosecute any alcohol or drug abuse patient.[facility] HospitalIn the event this information is protected by the Federal Confidentiality of Alcohol and Drug Abuse Patient Records regulations: The Federal rules restrict any use of the information to criminally investigate or prosecute any alcohol or drug abuse patient.[facility] HospitalIn the event this information is protected by the Federal Confidentiality of Alcohol and Drug Abuse Patient Records regulations: The Federal rules restrict any use of the information to criminally investigate or prosecute any alcohol or drug abuse patient.[facility] HospitalIn the event this information is protected by the Federal Confidentiality of Alcohol and Drug Abuse Patient Records regulations: The Federal rules restrict any use of the information to criminally investigate or prosecute any alcohol or drug abuse patient.[facility] HospitalIn the event this information is protected by the Federal Confidentiality of Alcohol and Drug Abuse Patient Records regulations: The Federal rules restrict any use of the information to criminally investigate or prosecute any alcohol or drug abuse patient.[facility] HospitalIn the event this information is protected by the Federal Confidentiality of Alcohol and Drug Abuse Patient Records regulations: The Federal rules restrict any use of the information to criminally investigate or prosecute any alcohol or drug abuse patient.[facility] HospitalIn the event this information is protected by the Federal Confidentiality of Alcohol and Drug Abuse Patient Records regulations: The Federal rules restrict any use of the information to criminally investigate or prosecute any alcohol or drug abuse patient.[facility] HospitalIn the event this information is protected by the Federal Confidentiality of Alcohol and Drug Abuse Patient Records regulations: The Federal rules restrict any use of the information to criminally investigate or prosecute any alcohol or drug abuse patient.[facility] HospitalIn the event this information is protected by the Federal Confidentiality of Alcohol and Drug Abuse Patient Records regulations: The Federal rules restrict any use of the information to criminally investigate or prosecute any alcohol or drug abuse patient.[facility] HospitalIn the event this information is protected by the Federal Confidentiality of Alcohol and Drug Abuse Patient Records regulations: The Federal rules restrict any use of the information to criminally investigate or prosecute any alcohol or drug abuse patient.[facility] HospitalIn the event this information is protected by the Federal Confidentiality of Alcohol and Drug Abuse Patient Records regulations: The Federal rules restrict any use of the information to criminally investigate or prosecute any alcohol or drug abuse patient.[facility] HospitalIn the event this information is protected by the Federal Confidentiality of Alcohol and Drug Abuse Patient Records regulations: The Federal rules restrict any use of the information to criminally investigate or prosecute any alcohol or drug abuse patient.[facility] HospitalIn the event this information is protected by the Federal Confidentiality of Alcohol and Drug Abuse Patient Records regulations: The Federal rules restrict any use of the information to criminally investigate or prosecute any alcohol or drug abuse patient.[facility] HospitalIn the event this information is protected by the Federal Confidentiality of Alcohol and Drug Abuse Patient Records regulations: The Federal rules restrict any use of the information to criminally investigate or prosecute any alcohol or drug abuse patient.[facility] HospitalIn the event this information is protected by the Federal Confidentiality of Alcohol and Drug Abuse Patient Records regulations: The Federal rules restrict any use of the information to criminally investigate or prosecute any alcohol or drug abuse patient.[facility] HospitalIn the event this information is protected by the Federal Confidentiality of Alcohol and Drug Abuse Patient Records regulations: The Federal rules restrict any use of the information to criminally investigate or prosecute any alcohol or drug abuse patient.[facility] HospitalIn the event this information is protected by the Federal Confidentiality of Alcohol and Drug Abuse Patient Records regulations: The Federal rules restrict any use of the information to criminally investigate or prosecute any alcohol or drug abuse patient.[facility] HospitalIn the event this information is protected by the Federal Confidentiality of Alcohol and Drug Abuse Patient Records regulations: The Federal rules restrict any use of the information to criminally investigate or prosecute any alcohol or drug abuse patient.[facility] HospitalIn the event this information is protected by the Federal Confidentiality of Alcohol and Drug Abuse Patient Records regulations: The Federal rules restrict any use of the information to criminally investigate or prosecute any alcohol or drug abuse patient.[facility] HospitalIn the event this information is protected by the Federal Confidentiality of Alcohol and Drug Abuse Patient Records regulations: The Federal rules restrict any use of the information to criminally investigate or prosecute any alcohol or drug abuse patient.[facility] HospitalIn the event this information is protected by the Federal Confidentiality of Alcohol and Drug Abuse Patient Records regulations: The Federal rules restrict any use of the information to criminally investigate or prosecute any alcohol or drug abuse patient.[facility] HospitalIn the event this information is protected by the Federal Confidentiality of Alcohol and Drug Abuse Patient Records regulations: The Federal rules restrict any use of the information to criminally investigate or prosecute any alcohol or drug abuse patient.[facility] HospitalIn the event this information is protected by the Federal Confidentiality of Alcohol and Drug Abuse Patient Records regulations: The Federal rules restrict any use of the information to criminally investigate or prosecute any alcohol or drug abuse patient.[facility] HospitalIn the event this information is protected by the Federal Confidentiality of Alcohol and Drug Abuse Patient Records regulations: The Federal rules restrict any use of the information to criminally investigate or prosecute any alcohol or drug abuse patient.[facility] HospitalIn the event this information is protected by the Federal Confidentiality of Alcohol and Drug Abuse Patient Records regulations: The Federal rules restrict any use of the information to criminally investigate or prosecute any alcohol or drug abuse patient.[facility] HospitalIn the event this information is protected by the Federal Confidentiality of Alcohol and Drug Abuse Patient Records regulations: The Federal rules restrict any use of the information to criminally investigate or prosecute any alcohol or drug abuse patient.[facility] HospitalIn the event this information is protected by the Federal Confidentiality of Alcohol and Drug Abuse Patient Records regulations: The Federal rules restrict any use of the information to criminally investigate or prosecute any alcohol or drug abuse patient.[facility] HospitalIn the event this information is protected by the Federal Confidentiality of Alcohol and Drug Abuse Patient Records regulations: The Federal rules restrict any use of the information to criminally investigate or prosecute any alcohol or drug abuse patient.[facility] HospitalIn the event this information is protected by the Federal Confidentiality of Alcohol and Drug Abuse Patient Records regulations: The Federal rules restrict any use of the information to criminally investigate or prosecute any alcohol or drug abuse patient.[facility] HospitalIn the event this information is protected by the Federal Confidentiality of Alcohol and Drug Abuse Patient Records regulations: The Federal rules restrict any use of the information to criminally investigate or prosecute any alcohol or drug abuse patient.[facility] HospitalIn the event this information is protected by the Federal Confidentiality of Alcohol and Drug Abuse Patient Records regulations: The Federal rules restrict any use of the information to criminally investigate or prosecute any alcohol or drug abuse patient.[facility] HospitalIn the event this information is protected by the Federal Confidentiality of Alcohol and Drug Abuse Patient Records regulations: The Federal rules restrict any use of the information to criminally investigate or prosecute any alcohol or drug abuse patient.[facility] HospitalIn the event this information is protected by the Federal Confidentiality of Alcohol and Drug Abuse Patient Records regulations: The Federal rules restrict any use of the information to criminally investigate or prosecute any alcohol or drug abuse patient.[facility] HospitalIn the event this information is protected by the Federal Confidentiality of Alcohol and Drug Abuse Patient Records regulations: The Federal rules restrict any use of the information to criminally investigate or prosecute any alcohol or drug abuse patient.[facility] HospitalIn the event this information is protected by the Federal Confidentiality of Alcohol and Drug Abuse Patient Records regulations: The Federal rules restrict any use of the information to criminally investigate or prosecute any alcohol or drug abuse patient.[facility] HospitalIn the event this information is protected by the Federal Confidentiality of Alcohol and Drug Abuse Patient Records regulations: The Federal rules restrict any use of the information to criminally investigate or prosecute any alcohol or drug abuse patient.[facility] HospitalIn the event this information is protected by the Federal Confidentiality of Alcohol and Drug Abuse Patient Records regulations: The Federal rules restrict any use of the information to criminally investigate or prosecute any alcohol or drug abuse patient.[facility] HospitalIn the event this information is protected by the Federal Confidentiality of Alcohol and Drug Abuse Patient Records regulations: The Federal rules restrict any use of the information to criminally investigate or prosecute any alcohol or drug abuse patient.[facility] HospitalIn the event this information is protected by the Federal Confidentiality of Alcohol and Drug Abuse Patient Records regulations: The Federal rules restrict any use of the information to criminally investigate or prosecute any alcohol or drug abuse patient.[facility] HospitalIn the event this information is protected by the Federal Confidentiality of Alcohol and Drug Abuse Patient Records regulations: The Federal rules restrict any use of the information to criminally investigate or prosecute any alcohol or drug abuse patient.[facility] HospitalIn the event this information is protected by the Federal Confidentiality of Alcohol and Drug Abuse Patient Records regulations: The Federal rules restrict any use of the information to criminally investigate or prosecute any alcohol or drug abuse patient.[facility] HospitalIn the event this information is protected by the Federal Confidentiality of Alcohol and Drug Abuse Patient Records regulations: The Federal rules restrict any use of the information to criminally investigate or prosecute any alcohol or drug abuse patient.[facility] HospitalIn the event this information is protected by the Federal Confidentiality of Alcohol and Drug Abuse Patient Records regulations: The Federal rules restrict any use of the information to criminally investigate or prosecute any alcohol or drug abuse patient.[facility] HospitalIn the event this information is protected by the Federal Confidentiality of Alcohol and Drug Abuse Patient Records regulations: The Federal rules restrict any use of the information to criminally investigate or prosecute any alcohol or drug abuse patient.[facility] HospitalIn the event this information is protected by the Federal Confidentiality of Alcohol and Drug Abuse Patient Records regulations: The Federal rules restrict any use of the information to criminally investigate or prosecute any alcohol or drug abuse patient.[facility] HospitalIn the event this information is protected by the Federal Confidentiality of Alcohol and Drug Abuse Patient Records regulations: The Federal rules restrict any use of the information to criminally investigate or prosecute any alcohol or drug abuse patient.[facility] HospitalIn the event this information is protected by the Federal Confidentiality of Alcohol and Drug Abuse Patient Records regulations: The Federal rules restrict any use of the information to criminally investigate or prosecute any alcohol or drug abuse patient.[facility] HospitalIn the event this information is protected by the Federal Confidentiality of Alcohol and Drug Abuse Patient Records regulations: The Federal rules restrict any use of the information to criminally investigate or prosecute any alcohol or drug abuse patient.[facility] HospitalIn the event this information is protected by the Federal Confidentiality of Alcohol and Drug Abuse Patient Records regulations: The Federal rules restrict any use of the information to criminally investigate or prosecute any alcohol or drug abuse patient.[facility] HospitalIn the event this information is protected by the Federal Confidentiality of Alcohol and Drug Abuse Patient Records regulations: The Federal rules restrict any use of the information to criminally investigate or prosecute any alcohol or drug abuse patient.[facility] HospitalIn the event this information is protected by the Federal Confidentiality of Alcohol and Drug Abuse Patient Records regulations: The Federal rules restrict any use of the information to criminally investigate or prosecute any alcohol or drug abuse patient.[facility] HospitalIn the event this information is protected by the Federal Confidentiality of Alcohol and Drug Abuse Patient Records regulations: The Federal rules restrict any use of the information to criminally investigate or prosecute any alcohol or drug abuse patient.[facility] HospitalIn the event this information is protected by the Federal Confidentiality of Alcohol and Drug Abuse Patient Records regulations: The Federal rules restrict any use of the information to criminally investigate or prosecute any alcohol or drug abuse patient.[facility] HospitalIn the event this information is protected by the Federal Confidentiality of Alcohol and Drug Abuse Patient Records regulations: The Federal rules restrict any use of the information to criminally investigate or prosecute any alcohol or drug abuse patient.[facility] HospitalIn the event this information is protected by the Federal Confidentiality of Alcohol and Drug Abuse Patient Records regulations: The Federal rules restrict any use of the information to criminally investigate or prosecute any alcohol or drug abuse patient.[facility] HospitalIn the event this information is protected by the Federal Confidentiality of Alcohol and Drug Abuse Patient Records regulations: The Federal rules restrict any use of the information to criminally investigate or prosecute any alcohol or drug abuse patient.[facility] HospitalIn the event this information is protected by the Federal Confidentiality of Alcohol and Drug Abuse Patient Records regulations: The Federal rules restrict any use of the information to criminally investigate or prosecute any alcohol or drug abuse patient.[facility] HospitalIn the event this information is protected by the Federal Confidentiality of Alcohol and Drug Abuse Patient Records regulations: The Federal rules restrict any use of the information to criminally investigate or prosecute any alcohol or drug abuse patient.[facility] HospitalIn the event this information is protected by the Federal Confidentiality of Alcohol and Drug Abuse Patient Records regulations: The Federal rules restrict any use of the information to criminally investigate or prosecute any alcohol or drug abuse patient.[facility] HospitalIn the event this information is protected by the Federal Confidentiality of Alcohol and Drug Abuse Patient Records regulations: The Federal rules restrict any use of the information to criminally investigate or prosecute any alcohol or drug abuse patient.[facility] HospitalIn the event this information is protected by the Federal Confidentiality of Alcohol and Drug Abuse Patient Records regulations: The Federal rules restrict any use of the information to criminally investigate or prosecute any alcohol or drug abuse patient.[facility] HospitalIn the event this information is protected by the Federal Confidentiality of Alcohol and Drug Abuse Patient Records regulations: The Federal rules restrict any use of the information to criminally investigate or prosecute any alcohol or drug abuse patient.[facility] HospitalIn the event this information is protected by the Federal Confidentiality of Alcohol and Drug Abuse Patient Records regulations: The Federal rules restrict any use of the information to criminally investigate or prosecute any alcohol or drug abuse patient.[facility] HospitalIn the event this information is protected by the Federal Confidentiality of Alcohol and Drug Abuse Patient Records regulations: The Federal rules restrict any use of the information to criminally investigate or prosecute any alcohol or drug abuse patient.[facility] HospitalIn the event this information is protected by the Federal Confidentiality of Alcohol and Drug Abuse Patient Records regulations: The Federal rules restrict any use of the information to criminally investigate or prosecute any alcohol or drug abuse patient.[facility] HospitalIn the event this information is protected by the Federal Confidentiality of Alcohol and Drug Abuse Patient Records regulations: The Federal rules restrict any use of the information to criminally investigate or prosecute any alcohol or drug abuse patient.[facility] HospitalIn the event this information is protected by the Federal Confidentiality of Alcohol and Drug Abuse Patient Records regulations: The Federal rules restrict any use of the information to criminally investigate or prosecute any alcohol or drug abuse patient.[facility] HospitalIn the event this information is protected by the Federal Confidentiality of Alcohol and Drug Abuse Patient Records regulations: The Federal rules restrict any use of the information to criminally investigate or prosecute any alcohol or drug abuse patient.[facility] HospitalIn the event this information is protected by the Federal Confidentiality of Alcohol and Drug Abuse Patient Records regulations: The Federal rules restrict any use of the information to criminally investigate or prosecute any alcohol or drug abuse patient.[facility] HospitalIn the event this information is protected by the Federal Confidentiality of Alcohol and Drug Abuse Patient Records regulations: The Federal rules restrict any use of the information to criminally investigate or prosecute any alcohol or drug abuse patient.[facility] HospitalIn the event this information is protected by the Federal Confidentiality of Alcohol and Drug Abuse Patient Records regulations: The Federal rules restrict any use of the information to criminally investigate or prosecute any alcohol or drug abuse patient.[facility] HospitalIn the event this information is protected by the Federal Confidentiality of Alcohol and Drug Abuse Patient Records regulations: The Federal rules restrict any use of the information to criminally investigate or prosecute any alcohol or drug abuse patient.[facility] HospitalIn the event this information is protected by the Federal Confidentiality of Alcohol and Drug Abuse Patient Records regulations: The Federal rules restrict any use of the information to criminally investigate or prosecute any alcohol or drug abuse patient.[facility] HospitalIn the event this information is protected by the Federal Confidentiality of Alcohol and Drug Abuse Patient Records regulations: The Federal rules restrict any use of the information to criminally investigate or prosecute any alcohol or drug abuse patient.[facility] HospitalIn the event this information is protected by the Federal Confidentiality of Alcohol and Drug Abuse Patient Records regulations: The Federal rules restrict any use of the information to criminally investigate or prosecute any alcohol or drug abuse patient.[facility] HospitalIn the event this information is protected by the Federal Confidentiality of Alcohol and Drug Abuse Patient Records regulations: The Federal rules restrict any use of the information to criminally investigate or prosecute any alcohol or drug abuse patient.[facility] HospitalIn the event this information is protected by the Federal Confidentiality of Alcohol and Drug Abuse Patient Records regulations: The Federal rules restrict any use of the information to criminally investigate or prosecute any alcohol or drug abuse patient.[facility] HospitalIn the event this information is protected by the Federal Confidentiality of Alcohol and Drug Abuse Patient Records regulations: The Federal rules restrict any use of the information to criminally investigate or prosecute any alcohol or drug abuse patient.[facility] HospitalIn the event this information is protected by the Federal Confidentiality of Alcohol and Drug Abuse Patient Records regulations: The Federal rules restrict any use of the information to criminally investigate or prosecute any alcohol or drug abuse patient.[facility] HospitalIn the event this information is protected by the Federal Confidentiality of Alcohol and Drug Abuse Patient Records regulations: The Federal rules restrict any use of the information to criminally investigate or prosecute any alcohol or drug abuse patient.[facility] HospitalIn the event this information is protected by the Federal Confidentiality of Alcohol and Drug Abuse Patient Records regulations: The Federal rules restrict any use of the information to criminally investigate or prosecute any alcohol or drug abuse patient.[facility] HospitalIn the event this information is protected by the Federal Confidentiality of Alcohol and Drug Abuse Patient Records regulations: The Federal rules restrict any use of the information to criminally investigate or prosecute any alcohol or drug abuse patient.[facility] HospitalIn the event this information is protected by the Federal Confidentiality of Alcohol and Drug Abuse Patient Records regulations: The Federal rules restrict any use of the information to criminally investigate or prosecute any alcohol or drug abuse patient.[facility] HospitalIn the event this information is protected by the Federal Confidentiality of Alcohol and Drug Abuse Patient Records regulations: The Federal rules restrict any use of the information to criminally investigate or prosecute any alcohol or drug abuse patient.[facility] HospitalIn the event this information is protected by the Federal Confidentiality of Alcohol and Drug Abuse Patient Records regulations: The Federal rules restrict any use of the information to criminally investigate or prosecute any alcohol or drug abuse patient.[facility] HospitalIn the event this information is protected by the Federal Confidentiality of Alcohol and Drug Abuse Patient Records regulations: The Federal rules restrict any use of the information to criminally investigate or prosecute any alcohol or drug abuse patient.[facility] HospitalIn the event this information is protected by the Federal Confidentiality of Alcohol and Drug Abuse Patient Records regulations: The Federal rules restrict any use of the information to criminally investigate or prosecute any alcohol or drug abuse patient.[facility] HospitalIn the event this information is protected by the Federal Confidentiality of Alcohol and Drug Abuse Patient Records regulations: The Federal rules restrict any use of the information to criminally investigate or prosecute any alcohol or drug abuse patient.[facility] HospitalIn the event this information is protected by the Federal Confidentiality of Alcohol and Drug Abuse Patient Records regulations: The Federal rules restrict any use of the information to criminally investigate or prosecute any alcohol or drug abuse patient.[facility] HospitalIn the event this information is protected by the Federal Confidentiality of Alcohol and Drug Abuse Patient Records regulations: The Federal rules restrict any use of the information to criminally investigate or prosecute any alcohol or drug abuse patient.[facility] HospitalIn the event this information is protected by the Federal Confidentiality of Alcohol and Drug Abuse Patient Records regulations: The Federal rules restrict any use of the information to criminally investigate or prosecute any alcohol or drug abuse patient.[facility] HospitalIn the event this information is protected by the Federal Confidentiality of Alcohol and Drug Abuse Patient Records regulations: The Federal rules restrict any use of the information to criminally investigate or prosecute any alcohol or drug abuse patient.[facility] HospitalIn the event this information is protected by the Federal Confidentiality of Alcohol and Drug Abuse Patient Records regulations: The Federal rules restrict any use of the information to criminally investigate or prosecute any alcohol or drug abuse patient.[facility] HospitalIn the event this information is protected by the Federal Confidentiality of Alcohol and Drug Abuse Patient Records regulations: The Federal rules restrict any use of the information to criminally investigate or prosecute any alcohol or drug abuse patient.[facility] HospitalIn the event this information is protected by the Federal Confidentiality of Alcohol and Drug Abuse Patient Records regulations: The Federal rules restrict any use of the information to criminally investigate or prosecute any alcohol or drug abuse patient.[facility] HospitalIn the event this information is protected by the Federal Confidentiality of Alcohol and Drug Abuse Patient Records regulations: The Federal rules restrict any use of the information to criminally investigate or prosecute any alcohol or drug abuse patient.[facility] HospitalIn the event this information is protected by the Federal Confidentiality of Alcohol and Drug Abuse Patient Records regulations: The Federal rules restrict any use of the information to criminally investigate or prosecute any alcohol or drug abuse patient.[facility] HospitalIn the event this information is protected by the Federal Confidentiality of Alcohol and Drug Abuse Patient Records regulations: The Federal rules restrict any use of the information to criminally investigate or prosecute any alcohol or drug abuse patient.[facility] HospitalIn the event this information is protected by the Federal Confidentiality of Alcohol and Drug Abuse Patient Records regulations: The Federal rules restrict any use of the information to criminally investigate or prosecute any alcohol or drug abuse patient.[facility] HospitalIn the event this information is protected by the Federal Confidentiality of Alcohol and Drug Abuse Patient Records regulations: The Federal rules restrict any use of the information to criminally investigate or prosecute any alcohol or drug abuse patient.[facility] HospitalIn the event this information is protected by the Federal Confidentiality of Alcohol and Drug Abuse Patient Records regulations: The Federal rules restrict any use of the information to criminally investigate or prosecute any alcohol or drug abuse patient.[facility] HospitalIn the event this information is protected by the Federal Confidentiality of Alcohol and Drug Abuse Patient Records regulations: The Federal rules restrict any use of the information to criminally investigate or prosecute any alcohol or drug abuse patient.[facility] HospitalIn the event this information is protected by the Federal Confidentiality of Alcohol and Drug Abuse Patient Records regulations: The Federal rules restrict any use of the information to criminally investigate or prosecute any alcohol or drug abuse patient.[facility] HospitalIn the event this information is protected by the Federal Confidentiality of Alcohol and Drug Abuse Patient Records regulations: The Federal rules restrict any use of the information to criminally investigate or prosecute any alcohol or drug abuse patient.[facility] HospitalIn the event this information is protected by the Federal Confidentiality of Alcohol and Drug Abuse Patient Records regulations: The Federal rules restrict any use of the information to criminally investigate or prosecute any alcohol or drug abuse patient.[facility] HospitalIn the event this information is protected by the Federal Confidentiality of Alcohol and Drug Abuse Patient Records regulations: The Federal rules restrict any use of the information to criminally investigate or prosecute any alcohol or drug abuse patient.[facility] HospitalIn the event this information is protected by the Federal Confidentiality of Alcohol and Drug Abuse Patient Records regulations: The Federal rules restrict any use of the information to criminally investigate or prosecute any alcohol or drug abuse patient.[facility] HospitalIn the event this information is protected by the Federal Confidentiality of Alcohol and Drug Abuse Patient Records regulations: The Federal rules restrict any use of the information to criminally investigate or prosecute any alcohol or drug abuse patient.[facility] HospitalIn the event this information is protected by the Federal Confidentiality of Alcohol and Drug Abuse Patient Records regulations: The Federal rules restrict any use of the information to criminally investigate or prosecute any alcohol or drug abuse patient.[facility] HospitalIn the event this information is protected by the Federal Confidentiality of Alcohol and Drug Abuse Patient Records regulations: The Federal rules restrict any use of the information to criminally investigate or prosecute any alcohol or drug abuse patient.[facility] HospitalIn the event this information is protected by the Federal Confidentiality of Alcohol and Drug Abuse Patient Records regulations: The Federal rules restrict any use of the information to criminally investigate or prosecute any alcohol or drug abuse patient.[facility] Care Teams (unrecognized sec tion and content) Apprentice Funeral Director Relationship Specialty Start Date End Date Herminia Case MD [address] [place] [address] PCP - General Family Practice 12/12/18 Apprentice Funeral Director Relationship Specialty Start Date End Date Herminia Case MD [address] [place] [address] PCP - General Family Practice 12/12/18 Apprentice Funeral Director Relationship Specialty Start Date End Date Herminia Case MD [address] [place] [address] PCP - General Family Practice 12/12/18 Apprentice Funeral Director Relationship Specialty Start Date End Date Herminia Case MD [address] [place] [address] PCP - General Family Practice 12/12/18 Apprentice Funeral Director Relationship Specialty Start Date End Date Herminia Case MD [address] [place] [address] PCP - General Family Practice 12/12/18 Apprentice Funeral Director Relationship Specialty Start Date End Date Herminia Case MD PCP - General 04/15/15 Apprentice Funeral Director Relationship Specialty Start Date End Date Herminia Case MD PCP - General 04/15/15 Apprentice Funeral Director Relationship Specialty Start Date End Date Herminia Case MD [address] [place] [address] PCP - General Family Practice 12/12/18 Apprentice Funeral Director Relationship Specialty Start Date End Date Herminia Case MD [address] [place] [address] PCP - General Family Practice 12/12/18 Apprentice Funeral Director Relationship Specialty Start Date End Date Herminia Case MD [address] [place] [address] PCP - General Family Practice 12/12/18 Apprentice Funeral Director Relationship Specialty Start Date End Date Herminia Case MD [address] [place] [address] PCP - General Family Practice 12/12/18 Apprentice Funeral Director Relationship Specialty Start Date End Date Herminia Case MD [address] [place] [address] PCP - General Family Medicine 12/12/18 Apprentice Funeral Director Relationship Specialty Start Date End Date Herminia Case MD [address] [place] [address] PCP - General Family Medicine 12/12/18 Apprentice Funeral Director Relationship Specialty Start Date End Date Herminia Case MD [address] [place] [address] PCP - General Family Medicine 12/12/18 Apprentice Funeral Director Relationship Specialty Start Date End Date Herminia Case MD [address] [place] [address] PCP - General Family Medicine 12/12/18 Apprentice Funeral Director Relationship Specialty Start Date End Date Herminia Case MD [address] [place] [address] PCP - General Family Medicine 12/12/18 Apprentice Funeral Director Relationship Specialty Start Date End Date Herminia Case MD [address] [place] [address] PCP - General Family Medicine 12/12/18 Apprentice Funeral Director Relationship Specialty Start Date End Date Herminia Case MD [address] [place] [address] PCP - General Family Medicine 12/12/18 Apprentice Funeral Director Relationship Specialty Start Date End Date Herminia Case MD [address] [place] [address] PCP - General Family Medicine 12/12/18 Apprentice Funeral Director Relationship Specialty Start Date End Date Herminia Case MD [address] [place] [address] PCP - General Family Medicine 12/12/18 Apprentice Funeral Director Relationship Specialty Start Date End Date Herminia Case MD [address] [place] [address] PCP - General Family Medicine 12/12/18 Apprentice Funeral Director Relationship Specialty Start Date End Date Herminia Case MD [address] [place] [address] PCP - General Family Medicine 12/12/18 Apprentice Funeral Director Relationship Specialty Start Date End Date Herminia Case MD [address] [place] [address] PCP - General Family Medicine 12/12/18 Apprentice Funeral Director Relationship Specialty Start Date End Date Herminia Case MD [address] [place] [address] PCP - General Family Medicine 12/12/18 Apprentice Funeral Director Relationship Specialty Start Date End Date Herminia Case MD [address] [place] [address] PCP - General Family Medicine 12/12/18 Apprentice Funeral Director Relationship Specialty Start Date End Date Herminia Case MD [address] [place] [address] PCP - General Family Medicine 12/12/18 Apprentice Funeral Director Relationship Specialty Start Date End Date Herminia Case MD [address] [place] [address] PCP - General Family Medicine 12/12/18 Apprentice Funeral Director Relationship Specialty Start Date End Date Herminia Case MD [address] [place] [address] PCP - General Family Medicine 12/12/18 Apprentice Funeral Director Relationship Specialty Start Date End Date Herminia Case MD [address] [place] [address] PCP - General Family Medicine 12/12/18 Apprentice Funeral Director Relationship Specialty Start Date End Date Herminia Case MD [address] [place] [address] PCP - General 04/15/15 Ziyad Menendez MD 161 [facility], [address] [place] [address] Consulting Physician Gynecologic Oncology 03/12/22 Sally Rocha SYSTEMS ANALYSIS MANAGER - NAILING MACHINE OPERATOR [address] [place] [address] [address] [place], [place] [id number] Nurse Practitioner Certified Nurse Practitioner 04/21/22 Kisha Pepe SYSTEMS ANALYSIS MANAGER - NAILING MACHINE OPERATOR [address] [place] [address] [address] [place] [address] Nurse Practitioner Nurse Practitioner 10/20/22 Apprentice Funeral Director Relationship Specialty Start Date End Date Herminia Case MD [address] [place] [address] PCP - General Family Medicine 12/12/18 Apprentice Funeral Director Relationship Specialty Start Date End Date Herminia Case MD [address] [place] [address] PCP - General Family Medicine 12/12/18 Apprentice Funeral Director Relationship Specialty Start Date End Date Herminia Case MD [address] [place] [address] PCP - General 04/15/15 Ziyad Menendez MD 161 [facility], [address] [place] [address] Consulting Physician Gynecologic Oncology 03/12/22 Sally Rocha APRN - NAILING MACHINE OPERATOR [address] [place] [address] [address] [place], [place] [id number] Nurse Practitioner Certified Nurse Practitioner 04/21/22 Kisha Pepe APRN - NAILING MACHINE OPERATOR [address] [place] [address] [address] [place] [address] Nurse Practitioner Nurse Practitioner 10/20/22 Apprentice Funeral Director Relationship Specialty Start Date End Date Herminia Case MD [address] [place] [address] PCP - General Family Medicine 12/12/18 Apprentice Funeral Director Relationship Specialty Start Date End Date Herminia Case MD [address] [place] [address] PCP - General 04/15/15 Ziyad Menendez MD 161 [facility], [address] [place] [address] Consulting Physician Gynecologic Oncology 03/12/22 Aj, Sally, SYSTEMS ANALYSIS MANAGER - NAILING MACHINE OPERATOR [address] [place] [address] Nurse Practitioner Certified Nurse Practitioner 04/21/22 Kisha Pepe APRN - NAILING MACHINE OPERATOR [address] [place] [address] Nurse Practitioner Nurse Practitioner 10/20/22 Apprentice Funeral Director Relationship Specialty Start Date End Date Herminia Case MD [address] [place] [address] PCP - General Family Medicine 12/12/18 Apprentice Funeral Director Relationship Specialty Start Date End Date Herminia Case MD [address] [place] [address] PCP - General Family Medicine 12/12/18 Apprentice Funeral Director Relationship Specialty Start Date End Date Herminia Case MD [address] [place] [address] PCP - General Family Medicine 12/12/18 Apprentice Funeral Director Relationship Specialty Start Date End Date Herminia Case MD [address] [place] [address] PCP - General Family Medicine 12/12/18 Apprentice Funeral Director Relationship Specialty Start Date End Date Herminia Case MD [address] [place] [address] PCP - General Family Medicine 12/12/18 Apprentice Funeral Director Relationship Specialty Start Date End Date Herminia Case MD [address] [place] [address] PCP - General Family Medicine 12/12/18 Apprentice Funeral Director Relationship Specialty Start Date End Date Herminia Case MD [address] [place] [address] PCP - General Family Medicine 12/12/18 Apprentice Funeral Director Relationship Specialty Start Date End Date Herminia Case MD [address] [place] [address] PCP - General Family Medicine 12/12/18 Apprentice Funeral Director Relationship Specialty Start Date End Date Herminia Case MD [address] [place] [address] PCP - General Family Medicine 12/12/18 Apprentice Funeral Director Relationship Specialty Start Date End Date Herminia Case MD [address] [place] [address] PCP - General Family Medicine 12/12/18 Apprentice Funeral Director Relationship Specialty Start Date End Date Herminia Case MD [address] [place] [address] PCP - General Family Medicine 12/12/18 Apprentice Funeral Director Relationship Specialty Start Date End Date Herminia Case MD [address] [place] [address] PCP - General 04/15/15 Ziyad Menendez MD 161 [facility] [address] [place] [address] Consulting Physician Gynecologic Oncology 03/12/22 Sally Rocha, SYSTEMS ANALYSIS MANAGER - NAILING MACHINE OPERATOR 161 [facility] [address] [place] [address] Nurse Practitioner Certified Nurse Practitioner 04/21/22 Kisha Pepe APRN - NAILING MACHINE OPERATOR 161 [facility] [address] [place] [address] Nurse Practitioner Nurse Practitioner 10/20/22 Apprentice Funeral Director Relationship Specialty Start Date End Date Herminia Case MD [address] [place] [address] PCP - General Family Medicine 12/12/18 Apprentice Funeral Director Relationship Specialty Start Date End Date Herminia Case MD [address] [place] [address] PCP - General Family Medicine 12/12/18 Apprentice Funeral Director Relationship Specialty Start Date End Date Herminia Case MD [address] [place] [address] PCP - General 04/15/15 Ziyad Menendez MD [address] [address] Consulting Physician Gynecologic Oncology 03/12/22 Sally Rocha SYSTEMS ANALYSIS MANAGER - NAILING MACHINE OPERATOR 161 [facility] [address] [place] [address] Nurse Practitioner Certified Nurse Practitioner 04/21/22 Kisha Pepe SYSTEMS ANALYSIS MANAGER - NAILING MACHINE OPERATOR 161 [facility] [address] [place] [address] Nurse Practitioner Nurse Practitioner 10/20/22 Apprentice Funeral Director Relationship Specialty Start Date End Date Herminia Case MD [address] [place] [address] PCP - General Family Medicine 12/12/18 Apprentice Funeral Director Relationship Specialty Start Date End Date Herminia Case MD [address] [place] [address] PCP - General Family Medicine 12/12/18 Apprentice Funeral Director Relationship Specialty Start Date End Date Herminia Case MD [address] [place] [address] PCP - General Family Medicine 12/12/18 Apprentice Funeral Director Relationship Specialty Start Date End Date Herminia Case MD [address] [place] [address] PCP - General Family Medicine 12/12/18 Apprentice Funeral Director Relationship Specialty Start Date End Date Herminia Case MD [address] [place] [address] PCP - General Family Medicine 12/12/18 Apprentice Funeral Director Relationship Specialty Start Date End Date Herminia Case MD [address] [place] [address] PCP - General Family Medicine 12/12/18 Apprentice Funeral Director Relationship Specialty Start Date End Date Herminia Case MD [address] [place] [address] PCP - General Family Medicine 12/12/18 Apprentice Funeral Director Relationship Specialty Start Date End Date Herminia Case MD [address] [place] [address] PCP - General Family Medicine 12/12/18 Apprentice Funeral Director Relationship Specialty Start Date End Date Herminia Case MD [address] [place] [address] PCP - General Family Medicine 12/12/18 Apprentice Funeral Director Relationship Specialty Start Date End Date Herminia Case MD [address] [place] [address] PCP - General Family Medicine 12/12/18 Apprentice Funeral Director Relationship Specialty Start Date End Date Herminia Case MD [address] [place] [address] PCP - General Family Medicine 12/12/18 Apprentice Funeral Director Relationship Specialty Start Date End Date Herminia Case MD [address] [place], [place] [id number] PCP - General 04/15/15 Ziyad Menendez MD 161 [facility] [address] [place] [address] Consulting Physician Gynecologic Oncology 03/12/22 Sally Rocha APRN - NAILING MACHINE OPERATOR 161 [facility] [address] [place] [address] Nurse Practitioner Certified Nurse Practitioner 04/21/22 Kisha Pepe SYSTEMS ANALYSIS MANAGER - NAILING MACHINE OPERATOR 161 [facility] [address] [place] [address] Nurse Practitioner Nurse Practitioner 10/20/22 Apprentice Funeral Director Relationship Specialty Start Date End Date Herminia Case MD [address] [place] [address] PCP - General Family Medicine 12/12/18 Apprentice Funeral Director Relationship Specialty Start Date End Date Herminia Case MD [address] [place] [address] PCP - General Family Medicine 12/12/18 Apprentice Funeral Director Relationship Specialty Start Date End Date Herminia Case MD [address] [place] [address] PCP - General 04/15/15 Ziyad Menendez MD [address] [facility] [address] [place] [address] Consulting Physician Gynecologic Oncology 03/12/22 Sally Rocha APRN - NAILING MACHINE OPERATOR 161 [facility] [address] [place] [address] Nurse Practitioner Certified Nurse Practitioner 04/21/22 Kisha Pepe APRN - NAILING MACHINE OPERATOR 161 [facility]. [address] [place] [address] Nurse Practitioner Nurse Practitioner 10/20/22 Apprentice Funeral Director Relationship Specialty Start Date End Date Herminia Case MD [address] [place] [address] PCP - General Family Medicine 12/12/18 Apprentice Funeral Director Relationship Specialty Start Date End Date Herminia Case MD [address] [place] [address] PCP - General 04/15/15 Ziyad Menendez MD [address] [facility] [address] [place] [address] Consulting Physician Gynecologic Oncology 03/12/22 Sally Rocha APRN - NAILING MACHINE OPERATOR 161 [address] [facility] [address] [place] [address] Nurse Practitioner Certified Nurse Practitioner 04/21/22 Kisha Pepe APRN - NAILING MACHINE OPERATOR [address] [place] [address] [address] [place] [address] Nurse Practitioner Nurse Practitioner 10/20/22 Apprentice Funeral Director Relationship Specialty Start Date End Date Herminia Case MD [address] [place] [address] PCP - General Family Medicine 12/12/18 Apprentice Funeral Director Relationship Specialty Start Date End Date Herminia Case MD [address] [place] [address] PCP - General 04/15/15 Ziyad Menendez MD [address] [place] [address], [address] [place] [address] Consulting Physician Gynecologic Oncology 03/12/22 Sally Rocha, SYSTEMS ANALYSIS MANAGER - NAILING MACHINE OPERATOR [address] [place] [address] Nurse Practitioner Certified Nurse Practitioner 04/21/22 Apprentice Funeral Director Relationship Specialty Start Date End Date Herminia Case MD [address] [place] [address] PCP - General 04/15/15 Ziyad Menendez MD [address] [place] [address], [address] [place] [address] Consulting Physician Gynecologic Oncology 03/12/22 Sally Rocha, SYSTEMS ANALYSIS MANAGER - NAILING MACHINE OPERATOR 161 [facility] [address] [place] [address] Nurse Practitioner Certified Nurse Practitioner 04/21/22 Apprentice Funeral Director Relationship Specialty Start Date End Date Herminia Case MD [address] [place] [address] PCP - General Family Medicine 12/12/18 Melva Juárez PA-C [address] [place] [address] Data Miner Family [facility] 02/26/24 Apprentice Funeral Director Relationship Specialty Start Date End Date Herminia Case MD [address] [place] [address] PCP - General Family Medicine 12/12/18 Melva Juárez PA-C [address] [place] [address] Data Miner [facility] 02/26/24 Apprentice Funeral Director Relationship Specialty Start Date End Date Herminia Case MD [address] [place] [address] PCP - General Family Medicine 12/12/18 Melva Juárez PA-C [address] [place] [address] Data Miner Family [facility] 02/26/24 Apprentice Funeral Director Relationship Specialty Start Date End Date Herminia Case MD [address] [place] [address] PCP - General Family Medicine 12/12/18 Melva Juárez PA-C [address] [place] [address] Data Miner Family [facility] 02/26/24 Apprentice Funeral Director Relationship Specialty Start Date End Date Herminia Case MD [address] [place] [address] PCP - General Family Medicine 12/12/18 Melva Juárez PA-C [address] [place] [address] Data Miner Family Medicine 02/26/24 Apprentice Funeral Director Relationship Specialty Start Date End Date Herminia Case MD [address] [place] [address] PCP - General Family Medicine 12/12/18 Melva Juárez PA-C [address] [place] [address] Data Miner Family Medicine 02/26/24 Apprentice Funeral Director Relationship Specialty Start Date End Date Herminia Case MD [address] [place] [address] PCP - General 04/15/15 Ziyad Menendez MD 161 [facility] [address] [place] [address] Consulting Physician Gynecologic Oncology 03/12/22 Sally Rocha APRN - NAILING MACHINE OPERATOR 161 [facility] [address] [place] [address] Nurse Practitioner Certified Nurse Practitioner 04/21/22 Kisha Pepe APRN - NAILING MACHINE OPERATOR 161 [facility] [address] [place] [address] Nurse Practitioner Nurse Practitioner 10/20/22 Apprentice Funeral Director Relationship Specialty Start Date End Date Herminia Case MD [address] [place] [address] PCP - General Family Medicine 12/12/18 Melva Juárez PA-C [address] [place] [address] Data Miner Family Medicine 02/26/24 Apprentice Funeral Director Relationship Specialty Start Date End Date Herminia Case MD [address] [place] [address] PCP - General Family Medicine 12/12/18 Melva Juárez PA-C [address] [place] [address] Data Miner Family Medicine 02/26/24 Apprentice Funeral Director Relationship Specialty Start Date End Date Herminia Case MD [address] [place] [address] PCP - General Family Medicine 12/12/18 Melva Juárez PA-C [address] [place] [address] Data Miner Family Medicine 02/26/24 Herminia Case MD [address] [place] [address] Home Care Provider Family Medicine 06/07/24 Herminia Case MD [address] [place] [address] Referring Family Medicine 06/07/24 Apprentice Funeral Director Relationship Specialty Start Date End Date Herminia Case MD [address] [place] [address] PCP - General Family Medicine 12/12/18 Melva Juárez PA-C [address] [place] [address] Data Miner Family Medicine 02/26/24 Herminia Case MD [address] [place] [address] Home Care Provider Family Medicine 06/07/24 Herminia Case MD [address] [place] [address] Referring Family Medicine 06/07/24 Apprentice Funeral Director Relationship Specialty Start Date End Date Herminia Case MD [address] [place] [address] PCP - General Family Medicine 12/12/18 Melva Juárez PA-C [address] [place] [address] Data Miner Family Medicine 02/26/24 Herminia Case MD [address] [place] [address] Home Care Provider Family Medicine 06/07/24 Herminia Case MD [address] [place] [address] Referring Family Medicine 06/07/24 Apprentice Funeral Director Relationship Specialty Start Date End Date Herminia Case MD [address] [place] [address] PCP - General Family Medicine 12/12/18 Melva Juárez PA-C [address] [place] [address] Data Miner Family Medicine 02/26/24 Herminia Case MD [address] [place] [address] Home Care Provider Family Medicine 06/07/24 Herminia Case MD [address] [place] [address] Referring Family Medicine 06/07/24 Apprentice Funeral Director Relationship Specialty Start Date End Date Herminia Case MD [address] [place] [address] PCP - General Family Medicine 12/12/18 Melva Juárez PA-C [address] [place] [address] Data [employer]er Family Medicine 02/26/24 Herminia Case MD [address] [place] [address] Home Care Provider Family Medicine 06/07/24 Herminia Case MD [address] [place] [address] Referring Family Medicine 06/07/24 Apprentice Funeral Director Relationship Specialty Start Date End Date Herminia Case MD [address] [place] [address] PCP - General Family Medicine 12/12/18 Melva Juárez PA-C [address] [place] [address] [employer] Family [facility] 02/26/24 Herminia Case MD [address] [place] [address] Home Care Provider Family Medicine 06/07/24 Herminia Case MD [address] [place] [address] Referring Family Medicine 06/07/24 Apprentice Funeral Director Relationship Specialty Start Date End Date Herminia Case MD [address] [place] [address] PCP - General Family Medicine 12/12/18 Melva Juárez PA-C [address] [place] [address] [employer] Family [facility] 02/26/24 Herminia Case MD [address] [place] [address] Home Care Provider Family Medicine 06/07/24 Herminia Case MD [address] [place] [address] Referring Family Medicine 06/07/24 Apprentice Funeral Director Relationship Specialty Start Date End Date Herminia Case MD [address] [place] [address] PCP - General 04/15/15 Ziyad Menendez MD [address] [address] Consulting Physician Gynecologic Oncology 03/12/22 Sally Rocha APRN - CNP 161 [facility] [address] [place] [address] Nurse Practitioner Certified Nurse Practitioner 04/21/22 Kisha Pepe APRN - CNP 161 [facility] [address] [place] [address] Nurse Practitioner Nurse Practitioner 10/20/22 Apprentice Funeral Director Relationship Specialty Start Date End Date Herminia Case MD [address] [place], [place] [id number] PCP - General 04/15/15 Ziyad Menendez MD 161 [facility] [address] [place] [address] Consulting Physician Gynecologic Oncology 03/12/22 Sally Rocha APRN - CNP 161 [facility] [address] [place] [address] Nurse Practitioner Certified Nurse Practitioner 04/21/22 Kisha Pepe APRN - CNP 161 [facility] [address] [place] [address] Nurse Practitioner Nurse Practitioner 10/20/22 Apprentice Funeral Director Relationship Specialty Start Date End Date Herminia Case MD [address] [place], [place] [id number] PCP - General Family Medicine 12/12/18 Melva Juárez PA-C [address] [place], [place] [id number] [employer] Family Medicine 02/26/24 Herminia Case MD [address] [place] [address] Home Care Provider Family Medicine 06/07/24 Herminia Case MD [address] [place] [address] Referring Family Medicine 06/07/24 Apprentice Funeral Director Relationship Specialty Start Date End Date Herminia Case MD [address] [place], [place] [id number] PCP - General 04/15/15 Ziyad Menendez MD 161 [facility] [address] [place] [address] Consulting Physician Gynecologic Oncology 03/12/22 Sally Rocha APRN - NAILING MACHINE OPERATOR 161 [facility] [address] [place], [place] [id number] Nurse Practitioner Certified Nurse Practitioner 04/21/22 Kisha Pepe APRN - NAILING MACHINE OPERATOR 161 [facility] [address] [place] [address] Nurse Practitioner Nurse Practitioner 10/20/22 Apprentice Funeral Director Relationship Specialty Start Date End Date Herminia Case MD [address] [place] [address] PCP - General Family Medicine 12/12/18 Melva Juárez PA-C [address] [place] [address] [employer] Family Medicine 02/26/24 Herminia Case MD [address] [place] [address] Home Care Provider Family Medicine 06/07/24 Herminia Case MD [address] [place] [address] Referring Family Medicine 06/07/24 Apprentice Funeral Director Relationship Specialty Start Date End Date Herminia Case MD [address] [place] [address] PCP - General 04/15/15 Ziyad Menendez MD 161 [facility] [address] [place] [address] Consulting Physician Gynecologic Oncology 03/12/22 Sally Rocha APRN - NAILING MACHINE OPERATOR 161 [facility] [address] [place] [address] Nurse Practitioner Certified Nurse Practitioner 04/21/22 Kisha Pepe APRN - NAILING MACHINE OPERATOR 161 [facility] [address] [place] [address] Nurse Practitioner Nurse Practitioner 10/20/22 Apprentice Funeral Director Relationship Specialty Start Date End Date Herminia Case MD [address] [place] [address] PCP - General 04/15/15 Ziyad Menendez MD 161 [facility] [address] [place] [address] Consulting Physician Gynecologic Oncology 03/12/22 Sally Rocha APRN - NAILING MACHINE OPERATOR 161 [facility] [address] [place] [address] Nurse Practitioner Certified Nurse Practitioner 04/21/22 Kisha Pepe APRN - CNP 161 [facility] [address] [place] [address] Nurse Practitioner Nurse Practitioner 10/20/22 Apprentice Funeral Director Relationship Specialty Start Date End Date Herminia Case MD [address] [place] [address] PCP - General 04/15/15 Ziyad Menendez MD 161 [facility] [address] [place] [address] Consulting Physician Gynecologic Oncology 03/12/22 Sally Rocha APRN - NAILING MACHINE OPERATOR [address] [place] [address] [address] [place] [address] Nurse Practitioner Certified Nurse Practitioner 04/21/22 Kisha Pepe APRN - CNP [address] [place] [address] [address] [place] [address] Nurse Practitioner Nurse Practitioner 10/20/22 Team Status: [...] September 17, 2024 End: September 17, 2024 Apprentice Funeral Director Relationship Specialty Start Date End Date Herminia Case MD [address] [place] [address] PCP - General 04/15/15 Ziyad Menendez MD 161 [facility] [address] [place] [address] Consulting Physician Gynecologic Oncology 03/12/22 Sally Rocha APRN - NAILING MACHINE OPERATOR 161 [facility] [address] [place] [address] Nurse Practitioner Certified Nurse Practitioner 04/21/22 Kisha Pepe APRN - NAILING MACHINE OPERATOR 161 [facility]. [address] [place] [address] Nurse Practitioner Nurse Practitioner 10/20/22 Apprentice Funeral Director Relationship Specialty Start Date End Date Herminia Case MD [address] [place] [address] PCP - General 04/15/15 Ziyad Menendez MD 161 [facility] [address] [place] [address] Consulting Physician Gynecologic Oncology 03/12/22 Sally Rocha APRN - NAILING MACHINE OPERATOR 161 [facility] [address] [place] [address] Nurse Practitioner Certified Nurse Practitioner 04/21/22 Kisha Pepe APRN - NAILING MACHINE OPERATOR 161 [facility]. [address] [place] [address] Nurse Practitioner Nurse Practitioner 10/20/22 Apprentice Funeral Director Relationship Specialty Start Date End Date Herminia Case MD [address] [place] [address] PCP - General 04/15/15 Ziyad Menendez MD [address] [place] [address] Consulting Physician Gynecologic Oncology 03/12/22 Sally Rocha APRN - NAILING MACHINE OPERATOR [address] [place] [address] Nurse Practitioner Certified Nurse Practitioner 04/21/22 Kisha Pepe APRN - NAILING MACHINE OPERATOR [address] [facility] [place] [address] Nurse Practitioner Nurse Practitioner 10/20/22 Apprentice Funeral Director Relationship Specialty Start Date End Date Herminia Case MD [address] [place] [address] PCP - General 04/15/15 Ziyad Menendez MD [address] [facility] [address] [place] [address] Consulting Physician Gynecologic Oncology 03/12/22 Sally Rocha APRN - NAILING MACHINE OPERATOR [address] [place] [address] Nurse Practitioner Certified Nurse Practitioner 04/21/22 Kisha Pepe APRN - NAILING MACHINE OPERATOR [address] [facility] [place] [address] Nurse Practitioner Nurse Practitioner 10/20/22 Apprentice Funeral Director Relationship Specialty Start Date End Date Herminia Case MD [address] [place], [place] [id number] PCP - General 04/15/15 Ziyad Menendez MD [address] [facility] [address] [place], [place] [id number] Consulting Physician Gynecologic Oncology 03/12/22 Sally Rocha APRN - NAILING MACHINE OPERATOR [address] [facility] [address] [place], [place] [id number] Nurse Practitioner Certified Nurse Practitioner 04/21/22 Kisha Pepe APRN - NAILING MACHINE OPERATOR [address] [facility] [place] [address] Nurse Practitioner Nurse Practitioner 10/20/22 Apprentice Funeral Director Relationship Specialty Start Date End Date Herminia Case MD [address] [place] [address] PCP - General 04/15/15 Ziyad Menendez MD [address] [facility] [place] [address] [place] [address] Consulting Physician Gynecologic Oncology 03/12/22 Sally Rocha APRN - NAILING MACHINE OPERATOR [address] [facility] [address] [place] [address] Nurse Practitioner Certified Nurse Practitioner 04/21/22 Kisha Pepe APRN - NAILING MACHINE OPERATOR [address] [facility] [place] [address] Nurse Practitioner Nurse Practitioner 10/20/22 Goals (unrecognized [...] BE BASED ON THE PRIMARY CLINICAL RECORDS. [facility] [employer] [facility]. provides no warranty or guarantee of the accuracy or completeness of information in this document.
[2025-02-27 08:40] LABS: Hematocrit 35.0 % (37-47); Hemoglobin 10.9 g/dL (12.0-15.0); Mean Corp Hgb Conc 31.1 g/dL (32-36); Mean Corpuscular Volume 93.8 fL (81-99); Mean Platelet Vol. 9.9 fl (6.2-12.0); Platelet Count 212 K/mm3 (150-450); RBC Distribution Width CV 12.8 % (11.6-14.6); RBC Distribution Width SD 44.1 fl (35.1-43.9); Red Blood Count 3.73 M/mm3 (4.2-5.4); White Blood Count 8.4 K/mm3 (4.4-11.0)
[2025-02-27 08:54] LABS: Anion Gap 6 (5-15); BUN 12 mg/dL (4-19); BUN/Creat Ratio 27.9 RATIO (10-20); Calcium,Total 8.9 mg/dL (7.6-11.0); Carbon Dioxide 32.8 mmol/L (21.0-32.0); Chloride 101 mmol/L (98-108); Glucose 94 mg/dL (70-99); Potassium 4.0 mmol/L (3.3-5.1)
== END ==
LOC: OLS.SANC 05:00
PROVIDERS: Visit Provider Internal Medicine
DX: J44.9 Chronic obstructive pulmonary disease, unspecified (principal)
CPT/HCPCS: 36415; 80048; 85027

== ENCOUNTER → 2025-03-11 05:00 | Outpatient (REF) | payer MEDICARE, MEDICAID, SELFPAY ==
--- OUTSIDE RECORDS SUMMARY | 2025-03-11 03:35 | XMS RPT_ITS | CCD ---
Author Organization [facility] CliniSynh Care Team Providers Care Brim Cutter Name Role Phone Herminia Case Primary Care Provider [phone] Evie, Herminia Primary Care Unavailable Evie, Herminia [...] [phone] Ziyad Menendez MD Unavailable Aj SOUND PRINTER - DENTIST, Sally Unavailable Afshin SOUND PRINTER - DENTISTKisha Unavailable Ziyad Menendez MD Unavailable Aj SOUND PRINTER - DENTIST, Sally Unavailable Ziyad Menendez MD Unavailable Herminia Case MD Primary Care Provider [phone] Herminia Case MD Primary Care Provider Ziyad Menendez MD Unavailable Aj SOUND PRINTER - DENTIST, Sally Unavailable Joseph RAREGUIN, Melva E Unavailable Evie MAHAJAN, Herminia King [...] Unavailable JOAQUINA MARTINEZ Attending Unava ilable Aj SOUND PRINTER - DENTIST, Sally Unavailable Afshin SOUND PRINTER - DENTIST, Kisha Unavailable Jameson Molina Attending Physician UnavailJameson [...] [SEASONAL ALLERGIES] Allergy to substance 08-16-2017 Intolerance [facility] Work Phone: (20 sources) Pollen Allergy to substance 08-16-2017 Unknown [facility] [email or web address] Medications Current Medications Medication Drug Class(es) Dates [...] intertrochanteric fracture of left femur, initial encounter ([facility]) Take 1 tablet by mouth [...] 6 HOURS PRN, Pain Severe (7-10), Starting [facility] 08/02/19 at 2107 Maximum dose of [...] mouth. docusate sodium 50 mg / sennosides, mcc 8.6 mg oral tablet (20 sources) Start: [...] Active Start: 06-22-2022 End: 06-22-2022 Nebulizers Indications: Shellfish Shucker kyrie respiratory failure with hypoxia (HCC) , [...] bedtime as needed. Take [address] [facility] at bedtime as needed. TAKE 2 TABLETS BY [facility] AT BEDTIME NEEDED sodium chloride 30 mg/ml [...] Inhalation, EVERY 6 HOURS PRN, Wheezing, Starting [facility] 08/02/19 at 2106 Start: 08-02-2019 albuterol [...] sodium chloride 0.9 % 250 mL IVPB ([facility]) (2 sources) Start: 08-07-2023 End: 08-07-2023 azithromycin (Zithromax) 500 mg in sodium chloride 0.9 % 250 mL IVPB ([facility]) 24 hr buPROPion hydrochloride 150 mg extended [...] Comment on above: Take [address] [facility] once daily for 14 days. Take [address] [facility] once daily. 0.4 ml enoxaparin sodium [...] 05-21-2022 End: 05-21-2022 lidocaine-EPINEPHrine (Xylocaine W/EPI) 1 %-1:638971 injection 10 mL Start: 12-19-2019 End: 12-19-2019 lidocaine-EPINEPHrine 2 perc ent-1:938224 injection 2 ml fentaNYL 0.05 mg/ml injection [...] reach optimal image enhancement polyethylene glycol 3350 27164 mg powder for oral solution (14 sources) [...] on above: Take 2 tablets by [facility] once daily. TAKE 2 TABLETS BY [facility] EVERY DAY technetium Tc-99m medronate (Tc-MDP) [...] once daily. INHALE 2 PUFFS BY [facility] ONCE DAILY DIRECTED Problems Active [...] width (RBC) [Ratio] 13.7 % Normal 11.6-14.6 [facility] Comment on above: Order Comment: 311-1 Performed By: #### L 400.0001, #### [facility] [address] [place], [address] Hematocrit (Bld) [Volume fraction] 37.4 % Normal 37-47 [facility] Comment on above: Order Comment: 311-1 Performed By: #### L 400.0001, #### [facility] [address] [place], [address] Hemoglobin (Bld) [Mass/Vol] 11.2 g/dL Low 12.0-15.0 [facility] Comment on above: Order Comment: 311-1 Performed By: #### L 400.0001, M1.0 #### [facility] [address] [place], [address] MCH (RBC) [Entitic mass] 28.8 pg Normal 27.0-32.0 [facility] Comment on above: Order Comment: 311-1 Performed By: #### L 400.0001, #### [facility] [address] [place], [address] MCHC (RBC) [Mass/Vol] 29.9 g/dL Low 32-36 [facility] Comment on above: Order Comment: 311-1 Performed By: #### L 400.0001, #### [facility] [address] [place], [address] MCV (RBC) [Entitic vol] 96.1 fL Normal 81-99 [facility] Comment on above: Order Comment: 311-1 Performed By: #### L 400.0001, #### [facility] [address] [place], [address] Platelet mean volume (Bld) [Entitic vol] 9.6 fL Normal 6.2-12.0 [facility] Comment on above: Order Comment: 311-1 Performed By: #### L 400.0001, #### [facility] [address] [place], [address] Platelets (Bld) [#/Vol] 288 10*3/uL Normal 150-450 [facility] Comment on above: Order Comment: 311-1 Performed By: #### L 400.0001, #### [facility] [address] [place], [address] RBC (Bld) [#/Vol] 3.89 10*6/uL Low 4.2-5.4 [facility] Comment on above: Order Comment: 311-1 Performed By: #### L 400.0001, #### [facility] [address] [place], [address] RDW SD 49.0 fl High 35.1-43.9 [facility] Comment on above: Order Comment: 311-1 Performed By: #### L 400.0001, #### [facility] [address] [place], [address] WBC (Bld) [#/Vol] 8.7 10*3/uL Normal 4.4-11.0 [facility] Comment on above: Order Comment: 311-1 Performed By: #### L 400.0001, #### [facility] [address] [place], [address] Comprehensive Metabolic Prof laon 01-28-2025 Albumin [Mass/Vol] 3.6 g/dL Normal 3.4-4.8 [facility] Comment on above: Order Comment: 311-1 Performed By: #### L 400.0001, #### [facility] [address] [place], [address] Albumin/Globulin [Mass ratio] 1.3 {ratio} Normal 0.9-2.4 [facility] Comment on above: Order Comment: 311-1 Performed By: #### L 400.0001, #### [facility] [address] [place], [address] ALK PHOS 98 U/L Normal 35-104 [facility] Comment on above: Order Comment: 311-1 Performed By: #### L 400.0001, #### [facility] [address] [place], [address] ALT [Catalytic activity/Vol] 32 U/L Normal <=34 [facility] Comment on above: Order Comment: 311-1 Performed By: #### L 400.0001, #### [facility] [address] [place], [address] AST [Catalytic activity/Vol] 25 U/L Normal <=31 [facility] Comment on above: Order Comment: 311-1 Performed By: #### L 400.0001, #### [facility] [address] [place], [address] Bilirubin [Mass/Vol] 0.20 mg/dL Normal 0.00-1.30 [facility] Comment on above: Order Comment: 311-1 Performed By: #### L 400.0001, #### [facility] [address] [place], [address] BUN/CRE 33.5 RATIO High 10-20 [facility] Comment on above: Order Comment: 311-1 Performed By: #### L 400.0001, #### [facility] [address] [place], [address] Calcium [Mass/Vol] 9.2 mg/dL Normal 7.6-11.0 [facility] Comment on above: Order Comment: 311-1 Performed By: #### L 400.0001, #### [facility] [address] [place], [address] Chloride [Moles/Vol] 101 mmol/L Normal 98-108 [facility] Comment on above: Order Comment: 311-1 Performed By: #### L 400.0001, #### [facility] [address] [place], [address] CO2 [Moles/Vol] 32.3 mmol/L High 21.0-32.0 [facility] Comment on above: Order Comment: 311-1 Performed By: #### L 400.0001, #### [facility] [address] [place], [address] Creatinine [Mass/Vol] 0.51 mg/dL Low 0.70-1.20 [facility] Comment on above: Order Comment: 311-1 Performed By: #### L 400.0001, #### [facility] [address] [place], [address] GAP 8 Normal 5-15 [facility] Comment on above: Order Comment: 311-1 Performed By: #### L 400.0001, #### [facility] [address] [place], [address] GFR/1.73 sq M.predicted among non-blacks MDRD (S/P/Bld) [Vol rate/Area] 102 mL/min/{1.73_m2} Normal >60 [facility] Comment on above: Order Comment: 311-1 Result Comment: mL/m in/1.73m2 CKD-EPI Creatinine Equation (2020) Performed By: #### L 400.0001, #### [facility] [address] [place], [address] Globulin (S) [Mass/Vol] 2.7 g/dL Normal 2.2-4.2 [facility] Comment on above: Order Comment: 311-1 Performed By: #### L 400.0001, #### [facility] [address] [place], [address] Glucose [Mass/Vol] 99 mg/dL Normal 70-99 [facility] Comment on above: Order Comment: 311-1 Performed By: #### L 400.0001, #### [facility] [address] [place], [address] Potassium [Moles/Vol] 4.4 mmol/L Normal 3.3-5.1 [facility] Comment on above: Order Comment: 311-1 Performed By: #### L 400.0001, #### [facility] [address] [place], [address] Sodium [Moles/Vol] 141 mmol/L Normal 133-145 [facility] Comment on above: Order Comment: 311-1 Performed By: #### L 400.0001, M100.2200 #### [facility] [address] [place], [address] T PROT 6.3 g/dL Normal 5.9-8.4 [facility] Comment on above: Order Comment: 311-1 Performed By: #### L 400.0001, M100.2200 #### [facility] [address] [place], [address] Urea nitrogen [Mass/Vol] 17 mg/dL Normal 4-19 [facility] Comment on above: Order Comment: 311-1 Performed By: #### L 400.0001, M100.2200 #### [facility] [address] [place], [address] 36on 01-24-2025 36 COPD Navigator Note Called patient on home phone. No answer. Left Voicemail. Normal [facility] [id number] 01-22-2025 [id number] Normal [facility] [id number] Jail [facility] - Return [place] [address] [id number] Returning to Facility Normal [facility] [id number] Normal [facility] [id number] Normal [facility] [id number] Normal [facility] [id number] Transport requested 4PM in [employer]. Awaiting time confirmation. Normal [facility] [id number] Normal [facility] Bacteria identified Aer cx N om (Lower resp)Ordered By: Radha Ferguson on 01-22-2025 Gram Stain Result Few Epithelial cells per low power field Abnormal [facility] Gram Stain Result Moderate Polymorphonuclear leukocytes per low power field Abnormal [facility] Gram Stain Result Positive Abnormal [facility] H ealth Interpretation and review of laboratory results Abnormal [facility] Laboratory - Microbiology an d Antimicrobial susceptibilityOrdered By: Radha Ferguson on 01-22-2025 Bacteria identified Aer cx Nom (Lower resp) Few respiratory linus present. [facility] Bacteria identified Aer cx Nom (Lower resp) Rare Pseudomonas aeruginosa Abnormal [facility] Nursing Noteon 01-22-2025 Nursing Note Report called to Marisela at [facility]. Belongings packed and sent with patient, including eye glasses. Patient states dentures were already at [place], she did not have them during hospitalization. Normal [facility] Progress Noteon 01-22-2025 Progress Note Normal [facility] Progress [facility] Normal [facility] Progress Note Normal [facility] Progress Note Normal [facility] [id number] 01-21-2025 [id number] Normal [facility] Progress Noteon 01-21-2025 Progress Note Normal [facility] Progress Note Normal [facility] Progress Note Normal [facility] Progress Note Normal [facility] [id number] 01-20-2025 [id number] Normal [facility] Progress Noteon 01-20-2025 Progress Note Normal [facility] Progress Note Normal [facility] Progress Note Normal [facility] [id number] 01-19-2025 [id number] Normal [facility] BASIC METABOLIC PANELon 110 Anion gap [Moles/Vol] 9 mmol/L Normal 3-13 [facility] Comment on above: Performed By: #### L AB15 ####Smt Operator: HANS PAULSON ([phone])[facility] Calcium [Mass/Vol] 8.5 mg/dL Low 8.8-10.0 [facility] Comment on above: Performed By: #### L AB15 ####Smt Operator: HANS PAULSON ([phone])[facility] ([facility])[address] Chloride [Moles/Vol] 101 mmol/L Normal 98-107 [facility] Comment on above: Performed By: #### L AB15 ####Smt Operator: HANS PAULSON ([phone])[facility] ([facility])[address] CO2 [Moles/Vol] 32 mmol/L High 23-31 [facility] Comment on above: Performed By: #### L AB15 ####Smt Operator: HANS PAULSON ([phone])[facility] (HLAB)[address] Creatinine [Mass/Vol] 0.58 mg/dL Normal 0.58-1.12 [facility] Comment on above: Performed By: #### L AB15 ####Smt Operator: HANS PAULSON ([phone])[facility] [place] [address] GLOMERULAR FILTRATION RATE ML/MIN/1.73 SQ M.PREDICTED >90.0 Normal >60.0 [facility] Comment on above: Result Comment: Calc ulation based on the Chronic Kidney Disease Epidemiology Collaboration (CKD-EPI) equation refit without adjustment for race Performed By: #### L AB15 ####Smt Operator: HANS PAULSON ([phone])[facility] [place] [address] Glucose [Mass/Vol] 136 mg/dL High 82-115 [facility] Comment on above: Performed By: #### L AB15 ####Smt Operator: HANS PAULSON ([phone])[facility] Potassium [Moles/Vol] 3.9 mmol/L Normal 3.5-5.1 [facility] Comment on above: Result Comment: [facility] potassium values may be up to 0.5 mmol/L lower than serum values. Performed By: #### L AB15 ####Smt Operator: HANS PAULSON ([phone])[facility] [place] [address] [place] Sodium [Moles/Vol] 142 mmol/L Normal 136-145 [facility] Comment on above: Performed By: #### L AB15 ####Smt Operator: HANS PAULSON ([phone])[facility] ([facility])[address] Urea nitrogen [Mass/Vol] 20 mg/dL Normal 9-23 [facility] Comment on above: Performed By: #### L AB15 ####Smt Operator: HANS PAULSON ([id number])[facility] ([facility])[address] Basic metabolic 1998 panelon 01-19-2025 Anion gap [Moles/Vol] 9 mmol/L 3 - 13 mmol/L [facility] Calcium [Mass/Vol] 8.5 mg/dL Low 8.8 - 10. 0 mg/dL [facility] Chloride [Moles/Vol] 101 mmol/L 98 - 10 7 mmol/L [facility] CO2 [Moles/Vol] 32 mmol/L High 23 - 31 mmol/L [facility] Creatinine [Mass/Vol] 0.58 mg/dL 0.58 - 1.12 mg/dL [facility] GFR/1.73 sq M.predicted (S/P/Bld) [Vol rate/Area] - PINF [facility] Comment on above: Calculation based on the Chronic Kidney Disease Epidemiology Collaboration (CKD-EPI) equation refit without adjustment for race Glucose [Mass/Vol] 136 mg/dL High 82 - 115 mg/dL [facility] Interpretation and review of laboratory results Abnormal [facility] Potassium [Moles/Vol] 3.9 mmol/L 3.5 - 5.1 mmol/L [facility] Comment on above: Plasma potassium martín ues may be up to 0.5 mmol/L lower than serum values. Sodium [Moles/Vol] 142 mmol/L 136 - 145 mmol/L [facility] Urea nitrogen [Mass/Vol] 20 mg/dL 9 - 23 mg/d L [facility] CBC W Auto Differential pane l (Bld)Ordered By: Crystal Dupont on 01-19-2025 Basophils (Bld) [#/Vol] 0 10*3/uL 0.0 - 0.2 10*3/uL [facility] Basophils/100 WBC (Bld) 0.2 % 0.0 - 2.0 % [facility] Eosinophils (Bld) [#/Vol] 0.2 10*3/uL 0.0 - 0.5 10*3/uL [facility] Eosinophils/100 WBC (Bld) 2.1 % 0.0 - 6.0 % [facility] Erythrocyte distribution width (RBC) [Ratio] 14 % 11.5 - 15.0 % [facility] Hematocrit (Bld) [Volume fraction] 36.5 % 35.0 - 47.0 % [facility] Hemoglobin (Bld) [Mass/Vol] 11 g/dL Low 11.7 - 16.0 g/dL [facility] Immature granulocytes (Bld) [#/Vol] 0 10*3/uL NINF - 0.1 10*3/uL [facility] Immature granulocytes/100 WBC (Bld) 0.4 % 0.0 - 2.0 % [facility] Interpretation and review of laboratory results Abnormal [facility] Lymphocytes (Bld) [#/Vol] 1.3 10*3/uL 1.0 - 4.3 10*3/uL [facility] Lymphocytes/100 WBC (Bld) 16.1 % 15.0 - 45.0 % [facility] MCH (RBC) [Entitic mass] 28.7 pg 26. 0 - 34.0 pg [facility] MCHC (RBC) [Mass/Vol] 30.1 % Low 30.5 - 36.0 % [facility] MCV (RBC) [Entitic vol] 95.3 fL 77.0 - 99.0 fL [facility] Monocytes (Bld) [#/Vol] 0.7 10*3/uL 0.0 - 0.9 10*3/uL [facility] Monocytes/100 WBC (Bld) 8.1 % 5.0 - 13.0 % [facility] Neutrophils (Bld) [#/Vol] 6.1 10*3/uL 1.8 - 7.5 10*3/uL [facility] Neutrophils/100 WBC (Bld) 73.1 % 38.0 - 82.0 % [facility] Nucleated RBC/100 WBC (Bld) [Ratio] 0 % [facility] Platelet mean volume (Bld) [Entitic vol] 9.6 fL 9.0 - 12.7 fL [facility] Platelets (Bld) [#/Vol] 252 10*3/uL 140 - 440 10*3/uL [facility] RBC (Bld) [#/Vol] 3.83 10*6/uL 3.80 - 5.2 0 10*6/uL [facility] WBC (Bld) [#/Vol] 8.3 10*3/uL 3.6 - 10.7 10*3/uL [facility] CBC WITH AUTO DIFFERENTIALon 01-19-2025 Basophils (Bld) [#/Vol] 0.0 10*3/uL Normal 0.0-0.2 [facility] Comment on above: Performed By: #### L [id number] ####Smt Operator: HANS PAULSON ([phone])[facility] [employer] [facility] [employer] [facility] [facility] ([facility])[address] [place] [address] Basophils/100 WBC (Bld) 0.2 % Normal 0.0-2.0 S [facility] Comment on above: Performed By: #### L [id number] ####Smt Operator: HANS PAULSON ([phone])[facility] ([facility])[address] [place] [address] [place] Eosinophils (Bld) [#/Vol] 0.2 10*3/uL Normal 0.0-0.5 [facility] Comment on above: Performed By: #### L [id number] ####Smt Operator: HANS PAULSON ([id number])[facility] [employer] [facility] (SB[facility])[address] [place] [address] Eosinophils/100 WBC (Bld) 2.1 % Normal 0.0-6.0 [facility] Comment on above: Performed By: #### L [id number] ####Smt Operator: HANS PAULSON ([id number])[facility] ([facility])[address] [place] [address] Erythrocyte distribution width (RBC) [Ratio] 14.0 % Normal 11.5-15.0 [facility] Comment on above: Performed By: #### L [id number] ####Smt Operator: HANS PAULSON ([phone])[facility] [place] (SB[facility]AB)[address] [place] [address] Hematocrit (Bld) [Volume fraction] 36.5 % Normal 35.0-47.0 [facility] Comment on above: Performed By: #### L [id number] ####Smt Operator: HANS LORENE ([id number])[facility] (SB[facility])[address] [place] [address] Hemoglobin (Bld) [Mass/Vol] 11.0 g/dL Low 11.7-16.0 [facility] Comment on above: Performed By: #### L [id number] ####Smt Operator: HANS PAULSON ([phone])[facility] (SB[facility])[address] [place] [address] IMMATURE GRANS % 0.4 % Normal 0.0-2.0 [facility] Comment on above: Performed By: #### L [id number] ####Smt Operator: HANS LORENE ([id number])[facility] [employer] [facility] ([facility] [place] [address] IMMATURE GRANS ABSOLUTE 0.0 10*3/uL Normal <0.1 [facility] Comment on above: Performed By: #### L [id number] ####Smt Operator: HANS ALCANTARESCOBAR ([id number])[facility] [employer] [facility] ([facility])[address] [place] [address] Lymphocytes (Bld) [#/Vol] 1.3 10*3/uL Normal 1.0-4.3 [facility] Comment on above: Performed By: #### L [id number] ####Smt Operator: HANS WALDROPIVELISSE ([phone])[facility] [employer] [facility] [employer] [facility] [facility] ([facility])[address] Lymphocytes/100 WBC (Bld) 16.1 % Normal 15.0-45.0 [facility] Comment on above: Performed By: #### L [id number] ####Smt Operator: HANS PAULSON ([id number])[place]AR[place] (SBHLAB)[address] MCH (RBC) [Entitic mass] 28.7 pg Normal 26.0-34.0 [facility] Comment on above: Performed By: #### L [id number] ####Smt Operator: HANS PAULSON ([phone])[facility]ENTERNorma [facility]CHMIMBR[facility]N (SBHLAB)[address] MCHC 30.1 % Low 30.5-36.0 [facility] Comment on above: Performed By: #### L [id number] ####Smt Operator: HANS PAULSON ([phone])[facility]ENTERNorma [place] (SBHLAB)[address] [place] [address] MCV (RBC) [Entitic vol] 95.3 fL Normal 77.0-99.0 S [facility] Comment on above: Performed By: #### L [id number] ####Smt Operator: HANS PAULSON ([phone])[facility]ENTERNorm[facility] (SBHLAB)[address] [place] [address] Monocytes (Bld) [#/Vol] 0.7 10*3/uL Normal 0.0-0.9 [facility] Comment on above: Performed By: #### L [id number] ####Smt Operator: HANS PAULSON ([phone])ABE BRANCHBLAKEN (SBHLAB)[address] [place] [address] Monocytes/100 WBC (Bld) 8.1 % Normal 5.0-13.0 S [facility] Comment on above: Performed By: #### L [id number] ####Smt Operator: HANS PAULSON ([phone])[facility]ENTERNorm[facility]IM[facility]N (SB[facility])[address] NEUTROPHILS ABSOLUTE 6.1 10*3/uL Normal 1.8-7.5 [facility] Comment on above: Performed By: #### L [id number] ####Smt Operator: HANS ALCANTARESCOBAR ([phone])[facility]N (SB[facility]AB)[address] Neutrophils/100 WBC (Bld) 73.1 % Normal 38.0-82.0 [facility] Comment on above: Performed By: #### L [id number] ####Smt Operator: HANS LORENE ([phone])[facility]orma [employer] [facility] [facility] [facility] (SBHLAB)[address] NRBC 0.0 /100 WBCs Normal 0.0-2.0 [facility] Comment on above: Performed By: #### L [id number] ####Smt Operator: HANS LORENE ([phone])[facility] [place] (SBHLAB)[address] Platelet mean volume (Bld) [Entitic vol] 9.6 fL Normal 9.0-12.7 [facility] Comment on above: Performed By: #### L [id number] ####Smt Operator: HANS LORENE ([phone])[facility] [employer] [facility] [facility] (SBHLAB)155 [place] [address] [place] Platelets (Bld) [#/Vol] 252 10*3/uL Normal 140-440 [facility] Comment on above: Performed By: #### L [id number] ####Smt Operator: HANS ALCANTARESCOBAR ([phone])[facility] ([facility]155 [place] [address] [place] RBC (Bld) [#/Vol] 3.83 10*6/uL Normal 3.80-5.20 [facility] Comment on above: Performed By: #### L [id number] ####Smt Operator: HANS ALCANTARESCOBAR ([id number])[facility] ([facility])155 [place] [address] [place] WBC (Bld) [#/Vol] 8.3 10*3/uL Normal 3.6-10.7 [facility] Comment on above: Performed By: #### L [id number] ####Smt Operator: HANS PAULSON ([phone])[place] (SBHLAB)[address] Progress Noteon 01-19-[address] [facility] Progress Note Normal [facility] BASIC METABOLIC PANELon 10-3 Anion gap [Moles/Vol] 3 mmol/L Normal 3-13 [facility] Comment on above: Performed By: #### L AB15, [id number] ####Smt Operator: HANS PAULSON ([phone])[facility] [place] (SBHLAB)[address] Calcium [Mass/Vol] 6.7 mg/dL Low 8.8-10.0 [facility] Comment on above: Performed By: #### L AB15, [id number] ####Smt Operator: HANS PAULSON ([phone])[facility] [place] (SBHLAB)[address] Chloride [Moles/Vol] 111 mmol/L High 98-107 [facility] Comment on above: Performed By: #### L AB15, [id number] ####Smt Operator: HANS PAULSON ([phone])[facility] [place] (SBHLAB)[address] CO2 [Moles/Vol] 29 mmol/L Normal 23-31 [facility] Comment on above: Performed By: #### L AB15, [id number] ####Smt Operator: HANS PAULSON ([phone])[facility] [place] (SBHLAB)[address] Creatinine [Mass/Vol] 0.45 mg/dL Low 0.58-1.12 [facility] Comment on above: Performed By: #### L AB15, [id number] ####Smt Operator: HANS PAULSON ([phone])[facility] [place] (SBHLAB)155 [place] [address] [place] GLOMERULAR FILTRATION RATE ML/MIN/1.73 SQ M.PREDICTED >90.0 Normal >60.0 [facility] Comment on above: Result Comment: Calc ulation based on the Chronic Kidney Disease Epidemiology Collaboration (CKD-EPI) equation refit without adjustment for race Performed By: #### L AB15, [id number] ####Smt Operator: HANS PAULSON ([phone])[facility]ENTERNorma [facility]ST[facility] (SBHLAB)[address] Glucose [Mass/Vol] 85 mg/dL Normal 82-115 [facility] Comment on above: Performed By: #### L AB15, [id number] ####Smt Operator: HANS PAULSON ([phone])[facility]A [employer] [place] [employer] [facility] [facility] CLINICRaimundo (SBHLAB)[address] Potassium [Moles/Vol] 3.1 mmol/L Low 3.5-5.1 [facility] Comment on above: Result Comment: [facility] potassium values may be up to 0.5 mmol/L lower than serum values. Performed By: #### L AB15, [id number] ####Smt Operator: HANS PAULSON ([phone])[facility] [place] (SBHLAB)[address] Sodium [Moles/Vol] 143 mmol/L Normal 136-145 [facility] Comment on above: Performed By: #### L AB15, [id number] ####Smt Operator: HANS PAULSON ([phone])[facility] ([facility])[address] Urea nitrogen [Mass/Vol] 17 mg/dL Normal 9-23 [facility] Comment on above: Performed By: #### L AB15, [id number] ####Smt Operator: HANS PAULSON ([phone])[facility] ([facility])[address] Basic metabolic 1998 panelon 01-18-2025 Anion gap [Moles/Vol] 3 mmol/L 3 - 13 mmol/L [facility] Calcium [Mass/Vol] 6.7 mg/dL Low 8.8 - 10. 0 mg/dL [facility] Chloride [Moles/Vol] 111 mmol/L High 98 - 10 7 mmol/L [facility] CO2 [Moles/Vol] 29 mmol/L 23 - 31 mmol/L [facility] Creatinine [Mass/Vol] 0.45 mg/dL Low 0.58 - 1.12 mg/dL [facility] GFR/1.73 sq M.predicted (S/P/Bld) [Vol rate/Area] - PINF [facility] Comment on above: Calculation based on the Chronic Kidney Disease Epidemiology Collaboration (CKD-EPI) equation refit without adjustment for race Glucose [Mass/Vol] 85 mg/dL 82 - 115 mg/dL [facility] Interpretation and review of laboratory results Abnormal [facility] Potassium [Moles/Vol] 3.1 mmol/L Low 3.5 - 5.1 mmol/L [facility] Comment on above: Plasma potassium martín ues may be up to 0.5 mmol/L lower than serum values. Sodium [Moles/Vol] 143 mmol/L 136 - 145 mmol/L [facility] Urea nitrogen [Mass/Vol] 17 mg/dL 9 - 23 mg/d L [facility] CBC W Auto Differential pane l (Bld)on 01-18-2025 Basophils (Bld) [#/Vol] 0 10*3/uL 0.0 - 0.2 10*3/uL [facility] Basophils/100 WBC (Bld) 0.2 % 0.0 - 2.0 % [facility] Eosinophils (Bld) [#/Vol] 0.4 10*3/uL 0.0 - 0.5 10*3/uL [facility] Eosinophils/100 WBC (Bld) 4.3 % 0.0 - 6.0 % [facility] Erythrocyte distribution width (RBC) [Ratio] 13.8 % 11.5 - 15.0 % [facility] Hematocrit (Bld) [Volume fraction] 37.5 % 35.0 - 47.0 % [facility] Hemoglobin (Bld) [Mass/Vol] 11.5 g/dL Low 11.7 - 16.0 g/dL [facility] Immature granulocytes (Bld) [#/Vol] 0 10*3/uL NINF - 0.1 10*3/uL [facility] Immature granulocytes/100 WBC (Bld) 0.2 % 0.0 - 2.0 % [facility] Interpretation and review of laboratory results Abnormal [facility] Lymphocytes (Bld) [#/Vol] 1.6 10*3/uL 1.0 - 4.3 10*3/uL [facility] Lymphocytes/100 WBC (Bld) 19.5 % 15.0 - 45.0 % [facility] MCH (RBC) [Entitic mass] 29.2 pg 26. 0 - 34.0 pg [facility] MCHC (RBC) [Mass/Vol] 30.7 % 30.5 - 36.0 % [facility] MCV (RBC) [Entitic vol] 95.2 fL 77.0 - 99.0 fL [facility] Monocytes (Bld) [#/Vol] 0.7 10*3/uL 0.0 - 0.9 10*3/uL [facility] Monocytes/100 WBC (Bld) 8.4 % 5.0 - 13.0 % [facility] Neutrophils (Bld) [#/Vol] 5.5 10*3/uL 1.8 - 7.5 10*3/uL [facility] Neutrophils/100 WBC (Bld) 67.4 % 38.0 - 82.0 % [facility] Nucleated RBC/100 WBC (Bld) [Ratio] 0 % [facility] [email or web address] Platelet mean volume (Bld) [Entitic vol] 9.5 fL 9.0 - 12.7 fL [facility] Platelets (Bld) [#/Vol] 252 10*3/uL 140 - 440 10*3/uL [facility] RBC (Bld) [#/Vol] 3.94 10*6/uL 3.80 - 5.2 0 10*6/uL [facility] WBC (Bld) [#/Vol] 8.1 10*3/uL 3.6 - 10.7 10*3/uL [facility] CBC WITH AUTO DIFFERENTIALon 01-18-2025 Basophils (Bld) [#/Vol] 0.0 10*3/uL Normal 0.0-0.2 [facility] Comment on above: Performed By: #### L [id number] ####Smt Operator: HANS PAULSON ([phone])[facility] [place] (SBHLAB)[address] [place] [address] Basophils/100 WBC (Bld) 0.2 % Normal 0.0-2.0 S [facility] Comment on above: Performed By: #### L [id number] ####Smt Operator: HANS PAULSON ([phone])[facility] [place] (SBHLAB)[address] Eosinophils (Bld) [#/Vol] 0.4 10*3/uL Normal 0.0-0.5 [facility] Comment on above: Performed By: #### L [id number] ####Smt Operator: HANS PAULSON ([phone])[facility] [place] (SBHLAB)[address] Eosinophils/100 WBC (Bld) 4.3 % Normal 0.0-6.0 [facility] Comment on above: Performed By: #### L [id number] ####Smt Operator: HANS PAULSON ([phone])[facility] [place] (SBHLAB)[address] Erythrocyte distribution width (RBC) [Ratio] 13.8 % Normal 11.5-15.0 [facility] Comment on above: Performed By: #### L [id number] ####Smt Operator: HANS PAULSON ([phone])[facility] [place] (SBHLAB)[address] [place] [address] Hematocrit (Bld) [Volume fraction] 37.5 % Normal 35.0-47.0 [facility] Comment on above: Performed By: #### L [id number] ####Smt Operator: HANS PAULSON ([phone])[facility] [place] (SBHLAB)[address] Hemoglobin (Bld) [Mass/Vol] 11.5 g/dL Low 11.7-16.0 [facility] Comment on above: Performed By: #### L [id number] ####Smt Operator: HANS PAULSON ([phone])[facility] [place] (SBHLAB)[address] IMMATURE GRANS % 0.2 % Normal 0.0-2.0 [facility] Comment on above: Performed By: #### L [id number] ####Smt Operator: HANS PAULSON ([phone])[facility] (SBHLAB)[address] IMMATURE GRANS ABSOLUTE 0.0 10*3/uL Normal <0.1 [facility] Comment on above: Performed By: #### L [id number] ####Smt Operator: HANS PAULSON ([phone])[facility] (SBHLAB)[address] Lymphocytes (Bld) [#/Vol] 1.6 10*3/uL Normal 1.0-4.3 [facility] Comment on above: Performed By: #### L [id number] ####Smt Operator: HANS PAULSON ([phone])[facility] ([facility])[address] Lymphocytes/100 WBC (Bld) 19.5 % Normal 15.0-45.0 [facility] Comment on above: Performed By: #### L [id number] ####Smt Operator: HANS PAULSON ([phone])[facility] (SBHLAB)[address] MCH (RBC) [Entitic mass] 29.2 pg Normal 26.0-34.0 [facility] Comment on above: Performed By: #### L [id number] ####Smt Operator: HANS PAULSON ([phone])[facility] (SBHLAB)[address] MCHC 30.7 % Normal 30.5-36.0 [facility] Comment on above: Performed By: #### L [id number] ####Smt Operator: HANS PAULSON ([phone])[facility]A [facility] (SBHLAB)[address] [place] [address] [place] MCV (RBC) [Entitic vol] 95.2 fL Normal 77.0-99.0 S [facility] Comment on above: Performed By: #### L [id number] ####Smt Operator: HANS PAULSON ([phone])[facility] [place] (SBHLAB)[address] Monocytes (Bld) [#/Vol] 0.7 10*3/uL Normal 0.0-0.9 [facility] Comment on above: Performed By: #### L [id number] ####Smt Operator: HANS PAULSON ([id number])[facility] [place] (SBHLAB)[address] Monocytes/100 WBC (Bld) 8.4 % Normal 5.0-13.0 S [facility] Comment on above: Performed By: #### L [id number] ####Smt Operator: HANS PAULSON ([phone])[facility] [place] (SBHLAB)[address] NEUTROPHILS ABSOLUTE 5.5 10*3/uL Normal 1.8-7.5 [facility] Comment on above: Performed By: #### L [id number] ####Smt Operator: HANS PAULSON ([phone])[facility] [place] (SBHLAB)[address] Neutrophils/100 WBC (Bld) 67.4 % Normal 38.0-82.0 [facility] Comment on above: Performed By: #### L [id number] ####Smt Operator: HANS PAULSON ([phone])[facility] [place] (SBHLAB)155 [place] [address] [place] NRBC 0.0 /100 WBCs Normal 0.0-2.0 [facility] Comment on above: Performed By: #### L [id number] ####Smt Operator: HANS PAULSON ([phone])[facility] [place] (SBHLAB)155 [place] [address] [place] Platelet mean volume (Bld) [Entitic vol] 9.5 fL Normal 9.0-12.7 [facility] Comment on above: Performed By: #### L [id number] ####Smt Operator: HANS PAULSON ([id number])[facility]A [place] (SBHLAB)[address] Platelets (Bld) [#/Vol] 252 10*3/uL Normal 140-440 [facility] Comment on above: Performed By: #### L [id number] ####Smt Operator: HANS PAULSON ([phone])[facility]ENTERNorma [facility] (SBHLAB)[address] RBC (Bld) [#/Vol] 3.94 10*6/uL Normal 3.80-5.20 [facility] Comment on above: Performed By: #### L [id number] ####Smt Operator: HANS PAULSON ([id number])[facility] [place] (SBHLAB)[address] WBC (Bld) [#/Vol] 8.1 10*3/uL Normal 3.6-10.7 [facility] Comment on above: Performed By: #### L [id number] ####Smt Operator: HANS PAULSON ([phone])[facility]ENTERNorm[facility] [place] (SBHLAB)[address] Laboratory - Chemistry and C hemistry - challengeon 01-18-2025 Magnesium [Mass/Vol] 1.4 mg/dL Low 1.6 - 2 .6 mg/dL [facility] MAGNESIUMon 01-18-2025 Magnesium [Mass/Vol] 1.4 mg/dL Low 1.6-2.6 [facility] Comment on above: Result Comment: KYM Gilmore COMMENTS:Higher values can be expected in females during menses. Performed By: #### L AB15, [id number] ####Smt Operator: HANS PAULSON ([phone])[facility]ENTERNorma [facility] (SBHLAB)[address] Magnesium [Mass/Vol]on 01-18 Interpretation and review of laboratory results Abnormal [facility] Higher values can be expected in females during menses. [facility] Progress Noteon 01-18-[address] [facility] Progress Note Normal [facility] Progress Note Normal [facility] [id number] 01-17-2025 [id number] Normal [facility] [id number] Normal [facility] BASIC METABOLIC PANELon 12-21 Anion gap [Moles/Vol] 5 mmol/L Normal 3-13 [facility] Comment on above: Performed By: #### L AB15, [id number] ####Smt Operator: HANS PAULSON ([phone])[facility] [place] (SBHLAB)[address] Calcium [Mass/Vol] 8.1 mg/dL Low 8.8-10.0 [facility] Comment on above: Performed By: #### L AB15, [id number] ####Smt Operator: HANS PAULSON ([phone])[facility] [place] (SBHLAB)[address] [place] [address] [place] Chloride [Moles/Vol] 99 mmol/L Normal 98-107 [facility] Comment on above: Performed By: #### L AB15, [id number] ####Smt Operator: HANS PAULSON ([phone])[facility] [place] (SBHLAB)[address] [place] [address] [place] CO2 [Moles/Vol] 37 mmol/L High 23-31 [facility] Comment on above: Performed By: #### L AB15, [id number] ####Smt Operator: HANS PAULSON ([phone])[facility] [place] (SBHLAB)[address] [place] [address] [place] Creatinine [Mass/Vol] 0.44 mg/dL Low 0.58-1.12 [facility] Comment on above: Performed By: #### L AB15, [id number] ####Smt Operator: HANS PAULSON ([phone])[facility] (SBHLAB)[address] GLOMERULAR FILTRATION RATE ML/MIN/1.73 SQ M.PREDICTED >90.0 Normal >60.0 [facility] Comment on above: Result Comment: Calc ulation based on the Chronic Kidney Disease Epidemiology Collaboration (CKD-EPI) equation refit without adjustment for race Performed By: #### L AB15, [id number] ####Smt Operator: HANS PAULSON ([phone])[facility] (SBHLAB)[address] Glucose [Mass/Vol] 102 mg/dL Normal 82-115 [facility] Comment on above: Performed By: #### L AB15, [id number] ####Smt Operator: HANS PAULSON ([phone])[facility] ([facility] Potassium [Moles/Vol] 3.3 mmol/L Low 3.5-5.1 [facility] Comment on above: Result Comment: [facility] potassium values may be up to 0.5 mmol/L lower than serum values. Performed By: #### L AB15, [id number] ####Smt Operator: HANS PAULSON ([phone])[facility] (HLAB)[address] Sodium [Moles/Vol] 141 mmol/L Normal 136-145 [facility] Comment on above: Performed By: #### L AB15, [id number] ####Smt Operator: HANS PAULSON ([id number])[facility] (SBHLAB)[address] [place] [address] [place] Urea nitrogen [Mass/Vol] 16 mg/dL Normal 9-23 [facility] Comment on above: Performed By: #### L AB15, [id number] ####Smt Operator: HANS PAULSON ([phone])[facility] (SBHLAB)[address] Bacteria identified Cx Nom ( Bld)on 01-17-2025 Interpretation and review of laboratory results Normal [facility] Blood Collection Sit e: Right Arm [facility] Blood Collection Sit e: Left Arm [facility] Basic metabolic 1998 panelon 01-17-2025 Anion gap [Moles/Vol] 5 mmol/L 3 - 13 mmol/L [facility] Calcium [Mass/Vol] 8.1 mg/dL Low 8.8 - 10. 0 mg/dL [facility] Chloride [Moles/Vol] 99 mmol/L 98 - 10 7 mmol/L [facility] CO2 [Moles/Vol] 37 mmol/L High 23 - 31 mmol/L [facility] Creatinine [Mass/Vol] 0.44 mg/dL Low 0.58 - 1.12 mg/dL [facility] GFR/1.73 sq M.predicted (S/P/Bld) [Vol rate/Area] - PINF [facility] Comment on above: Calculation based on the Chronic Kidney Disease Epidemiology Collaboration (CKD-EPI) equation refit without adjustment for race Glucose [Mass/Vol] 102 mg/dL 82 - 115 mg/dL [facility] Interpretation and review of laboratory results Abnormal [facility] Potassium [Moles/Vol] 3.3 mmol/L Low 3.5 - 5.1 mmol/L [facility] Comment on above: Plasma potassium martín ues may be up to 0.5 mmol/L lower than serum values. Sodium [Moles/Vol] 141 mmol/L 136 - 145 mmol/L [facility] Urea nitrogen [Mass/Vol] 16 mg/dL 9 - 23 mg/d L [facility] CBC W Auto Differential pane l (Bld)on 01-17-2025 Basophils (Bld) [#/Vol] 0 10*3/uL 0.0 - 0.2 10*3/uL [facility] Basophils/100 WBC (Bld) 0.3 % 0.0 - 2.0 % [facility] Eosinophils (Bld) [#/Vol] 0.1 10*3/uL 0.0 - 0.5 10*3/uL [facility] Eosinophils/100 WBC (Bld) 2 % 0.0 - 6.0 % [facility] Erythrocyte distribution width (RBC) [Ratio] 13.7 % 11.5 - 15.0 % [facility] Hematocrit (Bld) [Volume fraction] 35.7 % 35.0 - 47.0 % [facility] Hemoglobin (Bld) [Mass/Vol] 11 g/dL Low 11.7 - 16.0 g/dL [facility] Immature granulocytes (Bld) [#/Vol] 0 10*3/uL NINF - 0.1 10*3/uL [facility] Immature granulocytes/100 WBC (Bld) 0.1 % 0.0 - 2.0 % [facility] Interpretation and review of laboratory results Abnormal [facility] Lymphocytes (Bld) [#/Vol] 1.5 10*3/uL 1.0 - 4.3 10*3/uL [facility] Lymphocytes/100 WBC (Bld) 20.5 % 15.0 - 45.0 % [facility] MCH (RBC) [Entitic mass] 29.2 pg 26. 0 - 34.0 pg [facility] MCHC (RBC) [Mass/Vol] 30.8 % 30.5 - 36.0 % [facility] MCV (RBC) [Entitic vol] 94.7 fL 77.0 - 99.0 fL [facility] Monocytes (Bld) [#/Vol] 0.7 10*3/uL 0.0 - 0.9 10*3/uL [facility] Monocytes/100 WBC (Bld) 9.4 % 5.0 - 13.0 % [facility] Neutrophils (Bld) [#/Vol] 4.8 10*3/uL 1.8 - 7.5 10*3/uL [facility] Neutrophils/100 WBC (Bld) 67.7 % 38.0 - 82.0 % [facility] Nucleated RBC/100 WBC (Bld) [Ratio] 0 % [facility] Platelet mean volume (Bld) [Entitic vol] 9.5 fL 9.0 - 12.7 fL [facility] Platelets (Bld) [#/Vol] 205 10*3/uL 140 - 440 10*3/uL [facility] RBC (Bld) [#/Vol] 3.77 10*6/uL Low 3.80 - 5.2 0 10*6/uL [facility] WBC (Bld) [#/Vol] 7.1 10*3/uL 3.6 - 10.7 10*3/uL [facility] CBC WITH AUTO DIFFERENTIALon 01-17-2025 Basophils (Bld) [#/Vol] 0.0 10*3/uL Normal 0.0-0.2 [facility] Comment on above: Performed By: #### L [id number] ####Smt Operator: HANS ALCANTARESCOBAR ([id number])[facility] [place] (SBHLAB)[address] Basophils/100 WBC (Bld) 0.3 % Normal 0.0-2.0 [facility] Comment on above: Performed By: #### L [id number] ####Smt Operator: HANS ALCANTARESCOBAR ([phone])[facility] [place] (SBHLAB)[address] Eosinophils (Bld) [#/Vol] 0.1 10*3/uL Normal 0.0-0.5 [facility] Comment on above: Performed By: #### L [id number] ####Smt Operator: HANS PAULSON ([phone])[facility] [place] (SBHLAB)[address] Eosinophils/100 WBC (Bld) 2.0 % Normal 0.0-6.0 [facility] Comment on above: Performed By: #### L [id number] ####Smt Operator: HANS ALCANTARESCOBAR ([phone])[facility] [place] (SBHLAB)[address] Erythrocyte distribution width (RBC) [Ratio] 13.7 % Normal 11.5-15.0 [facility] Comment on above: Performed By: #### L [id number] ####Smt Operator: HANS ALCANTARESCOBAR ([phone])[facility] [place] (SBHLAB)[address] Hematocrit (Bld) [Volume fraction] 35.7 % Normal 35.0-47.0 [facility] Comment on above: Performed By: #### L [id number] ####Smt Operator: HANS PAULSON ([phone])[facility] [place] (SBHLAB)[address] Hemoglobin (Bld) [Mass/Vol] 11.0 g/dL Low 11.7-16.0 [facility] Comment on above: Performed By: #### L [id number] ####Smt Operator: HANS PAULSON ([phone])[facility] [place] (SBHLAB)[address] IMMATURE GRANS % 0.1 % Normal 0.0-2.0 [facility] Comment on above: Performed By: #### L [id number] ####Smt Operator: HANS PAULSON ([phone])[facility] [employer] [facility] (SBHLAB)[address] IMMATURE GRANS ABSOLUTE 0.0 10*3/uL Normal <0.1 [facility] Comment on above: Performed By: #### L [id number] ####Smt Operator: HANS PAULSON ([phone])[facility] [employer] [facility] (SBAB)[address] Lymphocytes (Bld) [#/Vol] 1.5 10*3/uL Normal 1.0-4.3 [facility] Comment on above: Performed By: #### L [id number] ####Smt Operator: HANS PAULSON ([phone])[facility] (SB[facility]AB)[address] Lymphocytes/100 WBC (Bld) 20.5 % Normal 15.0-45.0 [facility] Comment on above: Performed By: #### L [id number] ####Smt Operator: HANS PAULSON ([id number])[facility] ([facility])[address] MCH (RBC) [Entitic mass] 29.2 pg Normal 26.0-34.0 [facility] Comment on above: Performed By: #### L [id number] ####Smt Operator: HANS PAULSON ([phone])[facility] (SBHLAB)[address] MCHC 30.8 % Normal 30.5-36.0 [facility] Comment on above: Performed By: #### L [id number] ####Smt Operator: HANS ALCANTARESCOBAR ([id number])[facility] (SBHLAB)[address] MCV (RBC) [Entitic vol] 94.7 fL Normal 77.0-99.0 [facility] Comment on above: Performed By: #### L [id number] ####Smt Operator: HANS ALCANTARESCOBAR ([id number])[facility] (SBHLAB)[address] Monocytes (Bld) [#/Vol] 0.7 10*3/uL Normal 0.0-0.9 [facility] Comment on above: Performed By: #### L [id number] ####Smt Operator: HANS ALCANTARESCOBAR ([phone])[facility] (SBHLAB)[address] Monocytes/100 WBC (Bld) 9.4 % Normal 5.0-13.0 S [facility] Comment on above: Performed By: #### L [id number] ####Smt Operator: HANS ALCANTARESCOBAR ([phone])[facility] (SBHLAB)[address] NEUTROPHILS ABSOLUTE 4.8 10*3/uL Normal 1.8-7.5 [facility] Comment on above: Performed By: #### L [id number] ####Smt Operator: HANS ALCANTARESCOBAR ([phone])[facility] (SBHLAB)155 [place] [address] [place] Neutrophils/100 WBC (Bld) 67.7 % Normal 38.0-82.0 [facility] Comment on above: Performed By: #### L [id number] ####Smt Operator: HANS PAULSON ([phone])[facility] (SBHLAB)[address] NRBC 0.0 /100 WBCs Normal 0.0-2.0 [facility] Comment on above: Performed By: #### L [id number] ####Smt Operator: HANS PAULSON ([phone])[facility]ENTERNorma [facility] (SBHLAB)[address] Platelet mean volume (Bld) [Entitic vol] 9.5 fL Normal 9.0-12.7 [facility] Comment on above: Performed By: #### L [id number] ####Smt Operator: HANS PAULSON ([phone])[facility]ENTERNorm[facility] (SBHLAB)[address] Platelets (Bld) [#/Vol] 205 10*3/uL Normal 140-440 [facility] Comment on above: Performed By: #### L [id number] ####Smt Operator: HANS PAULSON ([phone])[facility] (SB[facility])[address] [place] [address] RBC (Bld) [#/Vol] 3.77 10*6/uL Low 3.80-5.20 [facility] Comment on above: Performed By: #### L [id number] ####Smt Operator: HANS PAULSON ([phone])[facility] [employer] [facility] [employer] [facility] (SBHLAB)[address] [place] [address] WBC (Bld) [#/Vol] 7.1 10*3/uL Normal 3.6-10.7 [facility] Comment on above: Performed By: #### L [id number] ####Smt Operator: HANS PAULSON ([phone])[facility] [employer] [facility] (SBHLAB)[address] [place] [address] Laboratory - Chemistry and C hemistry - challengeon 01-17-2025 Magnesium [Mass/Vol] 1.8 mg/dL 1.6 - 2 .6 mg/dL [facility] Laboratory - Microbiology an d Antimicrobial susceptibilityon 01-17-2025 Bacteria identified Cx Nom (Bld) No growth at 5 days [facility] MAGNESIUMon 01-17-2025 Magnesium [Mass/Vol] 1.8 mg/dL Normal 1.6-2.6 [facility] Comment on above: Result Comment: ORDE R COMMENTS:Higher values can be expected in females during menses. Performed By: #### L AB15, [id number] ####Smt Operator: HANS PAULSON ([phone])[facility] HOSPITALRaimundo ([facility])[address] Magnesium [Mass/Vol]on 01-17 Interpretation and review of laboratory results Normal [facility] Higher values can be expected in females during menses. [facility] Progress Noteon 01-17-2025 Progress Note Normal [facility] Progress Note Normal [facility] Progress Note Normal [facility] 25-hydroxyvitamin D3 [Mass/V ol]on 01-16-2025 Interpretation and review of laboratory results Normal [facility] Target concentration : 30 - 40 ng/mL; toxicity seen at concentrations >100 ng/mL Less than 20 ng/mL: Indicative of Vit D deficiency Test performed by Frugalo, measuring Total Vitamin D, not individual fractions. [facility] [id number] 01-16-2025 [id number] Normal [facility] BASIC METABOLIC PANELon 12-20 Anion gap [Moles/Vol] 9 mmol/L Normal 3-13 [facility] Comment on above: Performed By: #### L AB15 ####Smt Operator: HANS PAULSON ([phone])[facility] Calcium [Mass/Vol] 8.4 mg/dL Low 8.8-10.0 [facility] Comment on above: Performed By: #### L AB15 ####Smt Operator: HANS PAULSON ([phone])[facility] ([facility] Chloride [Moles/Vol] 100 mmol/L Normal 98-107 [facility] Comment on above: Performed By: #### L AB15 ####Smt Operator: HANS PAULSON ([phone])[facility] (SBHLAB)[address] CO2 [Moles/Vol] 33 mmol/L High 23-31 [facility] Comment on above: Performed By: #### L AB15 ####Smt Operator: HANS PAULSON ([phone])[facility]ENTERNorma [place] (SBHLAB)[address] Creatinine [Mass/Vol] 0.52 mg/dL Low 0.58-1.12 [facility] Comment on above: Performed By: #### L AB15 ####Smt Operator: HANS PAULSON ([phone])[facility]ENTERNorma [place] (SBHLAB)[address] GLOMERULAR FILTRATION RATE ML/MIN/1.73 SQ M.PREDICTED >90.0 Normal >60.0 [facility] Comment on above: Result Comment: Calc ulation based on the Chronic Kidney Disease Epidemiology Collaboration (CKD-EPI) equation refit without adjustment for race Performed By: #### L AB15 ####Smt Operator: HANS PAULSON ([phone])[facility]ERNorma [place] (SBHLAB)[address] Glucose [Mass/Vol] 90 mg/dL Normal 82-115 [facility] Comment on above: Performed By: #### L AB15 ####Smt Operator: HANS PAULSON ([phone])[facility] [place] (SBHLAB)[address] Potassium [Moles/Vol] 3.7 mmol/L Normal 3.5-5.1 [facility] Comment on above: Result Comment: [facility] potassium values may be up to 0.5 mmol/L lower than serum values. Performed By: #### L AB15 ####Smt Operator: HANS PAULSON ([phone])[facility]orm[facility] [place] (SBHLAB)[address] Sodium [Moles/Vol] 142 mmol/L Normal 136-145 [facility] Comment on above: Performed By: #### L AB15 ####Smt Operator: HANS PAULSON ([phone])[facility] JOSE CARLOSMIMBRES MEMORIAL HOSPITALRaimundo (SBHLAB)[address] Urea nitrogen [Mass/Vol] 22 mg/dL Normal 9-23 [facility] Comment on above: Performed By: #### L AB15 ####Smt Operator: HANS PAULSON ([phone])[facility] [place] (SBHLAB)[address] Basic metabolic 1998 panelon 01-16-2025 Anion gap [Moles/Vol] 9 mmol/L 3 - 13 mmol/L [facility] Calcium [Mass/Vol] 8.4 mg/dL Low 8.8 - 10. 0 mg/dL [facility] Chloride [Moles/Vol] 100 mmol/L 98 - 10 7 mmol/L [facility] CO2 [Moles/Vol] 33 mmol/L High 23 - 31 mmol/L [facility] Creatinine [Mass/Vol] 0.52 mg/dL Low 0.58 - 1.12 mg/dL [facility] GFR/1.73 sq M.predicted (S/P/Bld) [Vol rate/Area] - PINF [facility] Comment on above: Calculation based on the Chronic Kidney Disease Epidemiology Collaboration (CKD-EPI) equation refit without adjustment for race Glucose [Mass/Vol] 90 mg/dL 82 - 115 mg/dL [facility] Interpretation and review of laboratory results Abnormal [facility] Potassium [Moles/Vol] 3.7 mmol/L 3.5 - 5.1 mmol/L [facility] Comment on above: Plasma potassium martín ues may be up to 0.5 mmol/L lower than serum values. Sodium [Moles/Vol] 142 mmol/L 136 - 145 mmol/L [facility] Urea nitrogen [Mass/Vol] 22 mg/dL 9 - 23 mg/d L [facility] Consulton 01-16-2025 Consult Normal [facility] Laboratory - Chemistry and C hemistry - challengeon 01-16-2025 25-hydroxyvitamin D3 [Mass/Vol] 24 ng/mL 20 - 50 ng/mL [facility] Nursing Noteon 01-16-2025 Nursing Note Normal [facility] PNEUMONIA PCR PANELon 2024 PNEUMONIA PCR PANEL Normal [facility] Comment on above: Performed By: #### L [id number] ####Smt Operator: AMELIE ELIZABETH ([phone])[facility] (SACLAB)[address] [place] [address] Progress Noteon 01-16-[address] [facility] Progress Note Normal [facility] RESPIRATORY CULTURE AND STAI Non 01-16-2025 RESPIRATORY CULTURE AND STAIN Normal [facility] Comment on above: Performed By: #### L [id number] ####Smt Operator: AMELIE ELIZABETH ([phone])[facility] (SAC[facility])[address] [place] [address] Respiratory pathogens DNA an d RNA panel MILANA+non-probe (Lower resp)on 01-16-2025 Acinetobacter baumannii complex Not detected Not Detected [facility] Adenovirus Not detected Not Detected [facility] C. pneumoniae DNA MILANA+non-probe Ql (Lower resp) Not detected Not Detected [facility] Enterobacter cloacae complex Not detected Not Detected [facility] Escherichia coli Not detected Not Detected [facility] FLUAV RNA MILANA+non-probe Ql (Lower resp) Not detected Not Detected [facility] FLUBV RNA MILANA+non-probe Ql (Lower resp) Not detected Not Detected [facility] Haemophilus influenzae Not detected Not Detecte d [facility] Human Metapneumovirus Not detected Not Detected [facility] Human Rhinovirus/Enterovirus Not detected Not Detected [facility] lt Interpretation and review of laboratory results Abnormal [facility] Klebsiella (Enterobacter) aerogenes Not detected Not Detected [facility] ealth Klebsiella oxytoca Not detected Not Detected [facility] Klebsiella pneumoniae Not detected Not Detected [facility] L. pneumophila DNA MILANA+non-probe Ql (Lower resp) Not detected Not Detected [facility] Moraxella catarrhalis Not detected Not Detected [facility] Mycoplasma pneumoniae Not detected Not Detected [facility] Parainfluenza virus Not detected Not Detected [facility] Proteus spp Not detected Not [facility]ed [facility] Pseudomonas aeruginosa Detected Abnormal Not Detected [facility] RSV RNA MILANA+probe Ql (Resp) Not detected Not Detected [facility] S. agalactiae DNA MILANA+non-probe Ql (Sput) Not detected Not Detected [facility] SARS-CoV-2 (COVID-19) RNA MILANA+non-probe Ql (Nph) Not detected Not Detected [facility] SARS-CoV-2 (COVID-19) RNA MILANA+probe Ql (Unsp spec) Methodology: Multiplex PCR This panel does not test for SARS-CoV-2 (Covid-19). The following antimicrobial resistance gene is reported if the appropriate organism is detected: mecA. The following antimicrobial resistance genes are reported if detected and the appropriate organisms are detected: CTX-M, IMP, KPC, NDM, OXA-48-like, and VIM. [facility] Serratia marcescens Not detected Not Detected S [facility] Staphylococcus aureus Not detected Not Detected [facility] Streptococcus pneumoniae Not detected Not Detec tommy [facility] Streptococcus pyogenes Not detected Not Detecte d [facility] VITAMIN D DEFICIENCY SCREENI NG (VIT D 25)on 01-16-2025 VIT D 25-OH, TOTAL 24 ng/mL Normal See comment [facility] Comment on above: Result Comment: KYM Gilmore COMMENTS:Target concentration: 30 - 40 ng/mL; toxicity seen at concentrations >100 ng/mLLess than 20 ng/mL: Indicative of Vit D deficiencyTest performed by Frugalo, measuring Total Vitamin D, not individual fractions. Performed By: #### L [id number] ####Smt Operator: HANS PAULSON ([phone])[facility] (SBHLAB)[address] [place] [address] BASIC METABOLIC PANELon 10-2 Anion gap [Moles/Vol] 6 mmol/L Normal 3-13 [facility] Comment on above: Performed By: #### L AB113, LAB15, [id number] ####Smt Operator: HANS PAULSON ([phone])[facility] (SBHLAB)[address] [place] [address] Calcium [Mass/Vol] 8.7 mg/dL Low 8.8-10.0 [facility] Comment on above: Performed By: #### L AB113, LAB15, [id number] ####Smt Operator: HANS PAULSON ([phone])[facility] (SBHLAB)[address] Chloride [Moles/Vol] 100 mmol/L Normal 98-107 [facility] Comment on above: Performed By: #### L AB113, LAB15, [id number] ####Smt Operator: HANS PAULSON ([phone])[facility]ENTERNorma [facility] HOSPITALRaimundo (SBHLAB)[address] CO2 [Moles/Vol] 35 mmol/L High 23-31 [facility] Comment on above: Performed By: #### L AB113, LAB15, [id number] ####Smt Operator: HANS PAULSON ([phone])[facility] ([facility] Creatinine [Mass/Vol] 0.52 mg/dL Low 0.58-1.12 [facility] Comment on above: Performed By: #### L AB113, LAB15, [id number] ####Smt Operator: HANS PAULSON ([id number])[facility]ENTERNorma [facility] GLOMERULAR FILTRATION RATE ML/MIN/1.73 SQ M.PREDICTED >90.0 Normal >60.0 [facility] Comment on above: Result Comment: Calc ulation based on the Chronic Kidney Disease Epidemiology Collaboration (CKD-EPI) equation refit without adjustment for race Performed By: #### L AB113, LAB15, [id number] ####Smt Operator: HANS PAULSON ([phone])[facility]HON[facility] (HLAB)[address] Glucose [Mass/Vol] 148 mg/dL High 82-115 [facility] Comment on above: Performed By: #### L AB113, LAB15, [id number] ####Smt Operator: HANS PAULSON ([id number])[facility] ([facility] Potassium [Moles/Vol] 4.3 mmol/L Normal 3.5-5.1 [facility] Comment on above: Result Comment: Plas ma potassium values may be up to 0.5 mmol/L lower than serum values. Performed By: #### L AB113, LAB15, [id number] ####Smt Operator: HANS ALCANTARESCOBAR ([id number])[facility] (HLAB)[address] Sodium [Moles/Vol] 141 mmol/L Normal 136-145 [facility] Comment on above: Performed By: #### L AB113, LAB15, [id number] ####Smt Operator: HANS WALDROPIVELISSE ([phone])[facility] Urea nitrogen [Mass/Vol] 18 mg/dL Normal 9-23 [facility] Comment on above: Performed By: #### L AB113, LAB15, [id number] ####Smt Operator: HANS PAULSON ([phone])[facility] ([facility])[address] [place] [address] BLOOD GAS, VENOUSon 01-16-20 25 AMOUNT OF OXYGEN 6 Normal [facility] Comment on above: Result Comment: KYM Gilmore COMMENTS:Assessment of oxygenation is best done with an arterial blood gas determination. Reference ranges for pO2, bicarbonate, and base excess are for mixed venous blood. Specimens drawn from a peripheral vein will often have higher values. Performed By: #### L AB79 ####Smt Operator: HANS PAULSON ([phone])[facility] (SBHLAB)[address] Base excess Calc (BldV) [Moles/Vol] 9.5 mmol/L High -3.0-3.0 [facility] Comment on above: Performed By: #### L AB79 ####Smt Operator: HANS PAULSON ([phone])[facility] CO2 [Moles/Vol] 39.0 mmol/L High 23.0-30.0 [facility] Comment on above: Performed By: #### L AB79 ####Smt Operator: HANS ALCANTARESCOBAR ([phone])[facility] (SBHLAB)[address] HCO3 (Bld) [Moles/Vol] 37.0 mmol/L High 21.0-30.0 S [facility] Comment on above: Performed By: #### L AB79 ####Smt Operator: HANS ALCANTARESCOBAR ([phone])[facility] (SBHLAB)[address] Hemoglobin (Bld) [Mass/Vol] 12.0 g/dL Normal Screen only [facility] Comment on above: Performed By: #### L AB79 ####Smt Operator: HANS ALCANTARESCOBAR ([phone])[facility] [place] (SBHLAB)[address] OXYGEN (MM HG) IN VENOUS BLOOD 52.5 mm Hg Normal [facility] Comment on above: Performed By: #### L AB79 ####Smt Operator: HANS ALCANTARESCOBAR ([phone])[facility] [place] (SBHLAB)[address] OXYGEN SATURATION (%) IN VENOUS BLOOD 86.5 % Normal [facility] Comment on above: Performed By: #### L AB79 ####Smt Operator: HANS ALCANTARESCOBAR ([phone])[facility] [place] (SBHLAB)[address] PCO2, VICKY 65.6 mm Hg High 35.0-53.0 [facility] Comment on above: Performed By: #### L AB79 ####Smt Operator: HANS WALDROPIVELISSE ([phone])[facility] [place] (SBHLAB)[address] PH VENOUS 7.369 Normal 7.320-7.420 [facility] Comment on above: Performed By: #### L AB79 ####Smt Operator: HANS ALCANTARESCOBAR ([phone])[facility] [place] (SBHLAB)[address] SOURCE OF OXYGEN Nasal Cannula (LPM) Normal [facility] Comment on above: Performed By: #### L AB79 ####Smt Operator: HANS PAULSON ([phone])[facility] ([facility])[address] Basic metabolic 1998 panelon 01-15-2025 Anion gap [Moles/Vol] 6 mmol/L 3 - 13 mmol/L [facility] Calcium [Mass/Vol] 8.7 mg/dL Low 8.8 - 10. 0 mg/dL [facility] Chloride [Moles/Vol] 100 mmol/L 98 - 10 7 mmol/L [facility] CO2 [Moles/Vol] 35 mmol/L High 23 - 31 mmol/L [facility] Creatinine [Mass/Vol] 0.52 mg/dL Low 0.58 - 1.12 mg/dL [facility] GFR/1.73 sq M.predicted (S/P/Bld) [Vol rate/Area] - PINF [facility] Comment on above: Calculation based on the Chronic Kidney Disease Epidemiology Collaboration (CKD-EPI) equation refit without adjustment for race Glucose [Mass/Vol] 148 mg/dL High 82 - 115 mg/dL [facility] Potassium [Moles/Vol] 4.3 mmol/L 3.5 - 5.1 mmol/L [facility] Comment on above: Plasma potassium martín ues may be up to 0.5 mmol/L lower than serum values. Sodium [Moles/Vol] 141 mmol/L 136 - 145 mmol/L [facility] Urea nitrogen [Mass/Vol] 18 mg/dL 9 - 23 mg/d L [facility] CBC (HEMOGRAM)on 01-15-2025 Erythrocyte distribution width (RBC) [Ratio] 13.5 % Normal 11.5-15.0 [facility] Comment on above: Performed By: #### L AB294 ####Smt Operator: HANS PAULSON ([phone])[facility] (SBHLAB)[address] [place] [address] Hematocrit (Bld) [Volume fraction] 35.6 % Normal 35.0-47.0 [facility] Comment on above: Performed By: #### L AB294 ####Smt Operator: HANS AGUILARCER ([phone])[facility]ENTERNorma [place] (SBHLAB)[address] Hemoglobin (Bld) [Mass/Vol] 10.9 g/dL Low 11.7-16.0 [facility] Comment on above: Performed By: #### L AB294 ####Smt Operator: HANS PAULSON ([phone])[facility]ENTERNorma [facility]CHMIMBRES [facility] HOSPITALRaimundo (SBHLAB)[address] MCH (RBC) [Entitic mass] 29.3 pg Normal 26.0-34.0 [facility] Comment on above: Performed By: #### L AB294 ####Smt Operator: HANS ALCANTARESCOBAR ([phone])[facility]ENTERNorma [facility] (SBHLAB)[address] MCHC 30.6 % Normal 30.5-36.0 [facility] Comment on above: Performed By: #### L AB294 ####Smt Operator: HANS ALCANTARESCOBAR ([phone])[facility]ENTERNorm[facility] (SBHLAB)[address] MCV (RBC) [Entitic vol] 95.7 fL Normal 77.0-99.0 S [facility] Comment on above: Performed By: #### L AB294 ####Smt Operator: HANS PAULSON ([phone])[facility]ENTERNorm[facility] (SBHLAB)[address] Platelet mean volume (Bld) [Entitic vol] 9.6 fL Normal 9.0-12.7 [facility] Comment on above: Performed By: #### L AB294 ####Smt Operator: HANS PAULSON ([phone])[facility]ENTERNorm[facility] (SBHLAB)[address] Platelets (Bld) [#/Vol] 185 10*3/uL Normal 140-440 [facility] Comment on above: Performed By: #### L AB294 ####Smt Operator: HANS PAULSON ([phone])[facility]ENTERNorma [place] (SBHLAB)[address] RBC (Bld) [#/Vol] 3.72 10*6/uL Low 3.80-5.20 [facility] Comment on above: Performed By: #### L AB294 ####Smt Operator: HANS PAULSON ([phone])[facility]ENTERNorm[facility] (SBHLAB)[address] WBC (Bld) [#/Vol] 6.6 10*3/uL Normal 3.6-10.7 [facility] Comment on above: Performed By: #### L AB294 ####Smt Operator: HANS PAULSON ([id number])[facility]ENTERNorm[facility] [place] (SBHLAB)[address] [place] [address] CBC panel Auto (Bld)on 01-15 Erythrocyte distribution width (RBC) [Ratio] 13.5 % 11.5 - 15.0 % [facility] Hematocrit (Bld) [Volume fraction] 35.6 % 35.0 - 47.0 % [facility] Hemoglobin (Bld) [Mass/Vol] 10.9 g/dL Low 11.7 - 16.0 g/dL [facility] Interpretation and review of laboratory results Abnormal [facility] MCH (RBC) [Entitic mass] 29.3 pg 26. 0 - 34.0 pg [facility] MCHC (RBC) [Mass/Vol] 30.6 % 30.5 - 36.0 % [facility] MCV (RBC) [Entitic vol] 95.7 fL 77.0 - 99.0 fL [facility] Platelet mean volume (Bld) [Entitic vol] 9.6 fL 9.0 - 12.7 fL [facility] Platelets (Bld) [#/Vol] 185 10*3/uL 140 - 440 10*3/uL [facility] RBC (Bld) [#/Vol] 3.72 10*6/uL Low 3.80 - 5.2 0 10*6/uL [facility] WBC (Bld) [#/Vol] 6.6 10*3/uL 3.6 - 10.7 10*3/uL [facility] Consulton 01-15-2025 Consult Normal [facility] Laboratory - Chemistry and C hemistry - challengeon 01-15-2025 Magnesium [Mass/Vol] 1.8 mg/dL 1.6 - 2 .6 mg/dL [facility] Laboratory - Chemistry and C hemistry - challengeOrdered By: Lynette Huitron on 01-15-2025 Base excess Calc (BldV) [Moles/Vol] 9.5 mmol/L High -3.0 - 3.0 mmol/L [facility] CO2 (BldV) [Partial pressure] 65.6 mm[Hg] High [facility] CO2 [Moles/Vol] 39 mmol/L High 23.0 - 30.0 mmol/L [facility] HCO3 (Bld) [Moles/Vol] 37 mmol/L High 21.0 - 30.0 mmol/L [facility] Oxygen (BldV) [Partial pressure] 52.5 mm[Hg] mm Hg [facility] pH (BldV) 7.369 [pH] 7.320 - 7.420 [facility] Laboratory - Hematology and Cell countsOrdered By: Lynette Huitron on 01-15-2025 Hemoglobin (Bld) [Mass/Vol] 12 g/dL 12.0 - 16.0 g/dl [facility] MAGNESIUMon 01-15-2025 Magnesium [Mass/Vol] 1.8 mg/dL Normal 1.6-2.6 [facility] Comment on above: Result Comment: KYM Gilmore COMMENTS:Higher values can be expected in females during menses. Performed By: #### L AB113, LAB15, [id number] ####Smt Operator: HANS PAULSON ([phone])[facility] ([facility])[address] [place] [address] Magnesium [Mass/Vol]on 01-15 Interpretation and review of laboratory results Normal [facility] Higher values can be expected in females during menses. [facility] No Panel Informationon 01-15 Interpretation and review of laboratory results Abnormal [facility] No Panel InformationOrdered By: Lynette Huitron on 01-15-2025 Amount Of Oxygen 6 [facility] Interpretation and review of laboratory results Abnormal [facility] Source Of Oxygen Nasal Cannula (LPM) [facility] Assessment of oxygenation is best done with an arterial blood gas determination. Reference ranges for pO2, bicarbonate, and base excess are for mixed venous blood. Specimens drawn from a peripheral vein will often have higher values. [facility] PHOSPHORUSon 01-15-2025 Phosphate [Mass/Vol] 2.1 mg/dL Low 2.3-4.7 [facility] Comment on above: Performed By: #### L AB113, LAB15, [id number] ####Smt Operator: HANS PAULSON ([phone])[facility] ([facility])[address] [place] [address] [place] Phosphate [Moles/Vol]on 12-20 Phosphate [Mass/Vol] 2.1 mg/dL Low 2.3 - 4 .7 mg/dL [facility] Progress Noteon 01-15-2025 Progress Note Normal [facility] Progress Note Normal [facility] Progress [facility] Normal [facility] Progress Note Normal [facility] Progress Note Accepted ICU transfe r from Dr. Pires Normal [facility] Vital signsOrdered By: Lynette Huitron on 01-15-2025 Oxygen saturation in Venous blood 86.5 % [facility] BASIC METABOLIC PANELon 12-20 Anion gap [Moles/Vol] 7 mmol/L Normal 3-13 [facility] Comment on above: Performed By: #### L AB15 ####Smt Operator: HANS PAULSON ([phone])[facility] Calcium [Mass/Vol] 8.7 mg/dL Low 8.8-10.0 [facility] Comment on above: Performed By: #### L AB15 ####Smt Operator: HANS PAULSON ([id number])[facility] ([facility])[address] [place] [address] [place] Chloride [Moles/Vol] 101 mmol/L Normal 98-107 [facility] Comment on above: Performed By: #### L AB15 ####Smt Operator: HANS PAULSON ([phone])[facility] ([facility])[address] CO2 [Moles/Vol] 36 mmol/L High 23-31 [facility] Comment on above: Performed By: #### L AB15 ####Smt Operator: HANS PAULSON ([phone])[facility] ([facility])[address] Creatinine [Mass/Vol] 0.55 mg/dL Low 0.58-1.12 [facility] Comment on above: Performed By: #### L AB15 ####Smt Operator: HANS PAULSON ([phone])[facility] [place] [address] GLOMERULAR FILTRATION RATE ML/MIN/1.73 SQ M.PREDICTED >90.0 Normal >60.0 [facility] Comment on above: Result Comment: Calc ulation based on the Chronic Kidney Disease Epidemiology Collaboration (CKD-EPI) equation refit without adjustment for race Performed By: #### L AB15 ####Smt Operator: HANS PAULSON ([phone])[facility] ([facility])[address] Glucose [Mass/Vol] 93 mg/dL Normal 82-115 [facility] Comment on above: Performed By: #### L AB15 ####Smt Operator: HANS PAULSON ([phone])[facility] ([facility])[address] [place] [address] [place] Potassium [Moles/Vol] 4.0 mmol/L Normal 3.5-5.1 [facility] Comment on above: Result Comment: [facility] potassium values may be up to 0.5 mmol/L lower than serum values. Performed By: #### L AB15 ####Smt Operator: HANS PAULSON ([phone])[facility] ([facility])[address] [place] [address] [place] Sodium [Moles/Vol] 144 mmol/L Normal 136-145 [facility] Comment on above: Performed By: #### L AB15 ####Smt Operator: HANS PAULSON ([phone])[facility] [place] ([facility])[address] Urea nitrogen [Mass/Vol] 20 mg/dL Normal 9-23 [facility] Comment on above: Performed By: #### L AB15 ####Smt Operator: HANS AGUILARCER ([phone])[facility] [place] ([facility])[address] BLOOD GAS ARTERIALon 025 AMOUNT OF OXYGEN 45 Normal [facility] Comment on above: Performed By: #### L AB76 ####Smt Operator: HANS PAULSON ([phone])[facility])[address] Base excess Calc (Bld) [Moles/Vol] 9.9 mmol/L High -3.0-3.0 [facility] Comment on above: Performed By: #### L AB76 ####Smt Operator: HANS PAULSON ([phone])[facility] ([facility])[address] CO2 [Moles/Vol] 38.6 mmol/L High 22.0-28.0 [facility] Comment on above: Performed By: #### L AB76 ####Smt Operator: HANS PAULSON ([phone])[facility] [place] ([facility])[address] [place] [address] [place] HCO3 (Bld) [Moles/Vol] 36.7 mmol/L High 21.0-27.0 [facility] Comment on above: Performed By: #### L AB76 ####Smt Operator: HANS PAULSON ([phone])[facility] ([facility])[address] Hemoglobin (Bld) [Mass/Vol] 10.8 g/dL Low Screen only [facility] Comment on above: Performed By: #### L AB76 ####Smt Operator: HANS PAULSON ([phone])[facility] [place] ([facility])[address] OXYGEN SATURATION (%) IN ARTERIAL BLOOD 94.7 % Low 97.0-99.0 [facility] Comment on above: Performed By: #### L AB76 ####Smt Operator: HANS PAULSON ([id number])[facility] ([facility])[address] PCO2 ARTERIAL 61.8 mm Hg High 32.0-45.0 [facility] Comment on above: Performed By: #### L AB76 ####Smt Operator: HANS PAULSON ([id number])[facility] ([facility])[address] PH ARTERIAL 7.391 Normal 7.350-7.450 [facility] Comment on above: Performed By: #### L AB76 ####Smt Operator: HANS PAULSON ([phone])[facility] ([facility])[address] PO2 ARTERIAL 73.2 mm Hg Low 83.0-108.0 [facility] Comment on above: Performed By: #### L AB76 ####Smt Operator: HANS PAULSON ([id number])[facility] ([facility])[address] SOURCE OF OXYGEN BiPAP Normal [facility] Comment on above: Performed By: #### L AB76 ####Smt Operator: HANS PAULSON ([phone])[facility] [employer] [facility] ([facility])[address] Basic metabolic 1998 panelon 01-14-2025 Anion gap [Moles/Vol] 7 mmol/L 3 - 13 mmol/L [facility] Calcium [Mass/Vol] 8.7 mg/dL Low 8.8 - 10. 0 mg/dL [facility] Chloride [Moles/Vol] 101 mmol/L 98 - 10 7 mmol/L [facility] CO2 [Moles/Vol] 36 mmol/L High 23 - 31 mmol/L [facility] Creatinine [Mass/Vol] 0.55 mg/dL Low 0.58 - 1.12 mg/dL [facility] GFR/1.73 sq M.predicted (S/P/Bld) [Vol rate/Area] - PINF [facility] Comment on above: Calculation based on the Chronic Kidney Disease Epidemiology Collaboration (CKD-EPI) equation refit without adjustment for race Glucose [Mass/Vol] 93 mg/dL 82 - 115 mg/dL [facility] Interpretation and review of laboratory results Abnormal [facility] Potassium [Moles/Vol] 4 mmol/L 3.5 - 5.1 mmol/L [facility] Comment on above: Plasma potassium martín ues may be up to 0.5 mmol/L lower than serum values. Sodium [Moles/Vol] 144 mmol/L 136 - 145 mmol/L [facility] Urea nitrogen [Mass/Vol] 20 mg/dL 9 - 23 mg/d L [facility] Laboratory - Chemistry and C hemistry - challengeOrdered By: Rosa Ruiz on 01-14-2025 Base excess Calc (Bld) [Moles/Vol] 9.9 mmol/L High -3.0 - 3.0 mmol/L [facility] CO2 (Bld) [Partial pressure] 61.8 mm[Hg] High [facility] CO2 [Moles/Vol] 38.6 mmol/L High 22.0 - 28.0 mmol/L [facility] HCO3 (Bld) [Moles/Vol] 36.7 mmol/L High 21.0 - 27.0 mmol/L [facility] Oxygen (Bld) [Partial pressure] 73.2 mm[Hg] Low [facility] pH (Bld) 7.391 [pH] 7.350 - 7.450 [facility] Laboratory - Hematology and Cell countsOrdered By: Rosa Ruiz on 01-14-2025 Hemoglobin (Bld) [Mass/Vol] 10.8 g/dL Low 12.0 - 16.0 g/dl [facility] No Panel InformationOrdered By: Rosa Ruiz on 01-14-2025 Amount Of Oxygen 45 [facility] alth Interpretation and review of laboratory results Abnormal [facility] Source Of Oxygen BiPAP Abe German alth [facility] Progress Noteon 01-14-[address] [facility] Progress Note Normal [facility] [id number] 01-13-2025 [id number] Normal [facility] BLOOD GAS, VENOUSon 01-14-20 25 AMOUNT OF OXYGEN 55 Normal [facility] Comment on above: Result Comment: KYM Gilmore COMMENTS:Assessment of oxygenation is best done with an arterial blood gas determination. Reference ranges for pO2, bicarbonate, and base excess are for mixed venous blood. Specimens drawn from a peripheral vein will often have higher values. Performed By: #### L AB79 ####Smt Operator: HANS PAULSON ([phone])[facility] ([facility])[address] [place] [address] Base excess Calc (BldV) [Moles/Vol] 6.3 mmol/L High -3.0-3.0 [facility] Comment on above: Performed By: #### L AB79 ####Smt Operator: HANS PAULSON ([phone])[facility] ([facility])[address] [place] [address] [place] CO2 [Moles/Vol] 38.1 mmol/L High 23.0-30.0 [facility] Comment on above: Performed By: #### L AB79 ####Smt Operator: HANS PAULSON ([phone])[facility] ([facility])[address] [place] [address] [place] HCO3 (Bld) [Moles/Vol] 35.6 mmol/L High 21.0-30.0 [facility] Comment on above: Performed By: #### L AB79 ####Smt Operator: HANS PAULSON ([phone])[facility] ([facility])[address] [place] [address] [place] Hemoglobin (Bld) [Mass/Vol] 11.3 g/dL Low Screen only [facility] Comment on above: Performed By: #### L AB79 ####Smt Operator: HANS AGUILARCER ([phone])[facility] ([facility])[address] OXYGEN (MM HG) IN VENOUS BLOOD 35.8 mm Hg Normal [facility] Comment on above: Performed By: #### L AB79 ####Smt Operator: HANS WALDROPIVELISSE ([id number])[facility] [place] ([facility])[address] OXYGEN SATURATION (%) IN VENOUS BLOOD 63.4 % Normal [facility] Comment on above: Performed By: #### L AB79 ####Smt Operator: HANS PAULSON ([phone])[facility] [place] ([facility])[address] PCO2, VICKY 80.8 mm Hg High 35.0-53.0 [facility] Comment on above: Performed By: #### L AB79 ####Smt Operator: HANS PAULSON ([phone])[facility] [place] ([facility])[address] PH VENOUS 7.262 Low 7.320-7.420 [facility] Comment on above: Performed By: #### L AB79 ####Smt Operator: HANS ALCANTARESCOBAR ([phone])[facility] [place] ([facility])[address] SOURCE OF OXYGEN BiPAP Normal [facility] Comment on above: Performed By: #### L AB79 ####Smt Operator: HANS ALCANTARESCOBAR ([phone])[facility] [place] ([facility])[address] [place] [address] [place] CBC W Auto Differential pane l (Bld)Ordered By: Yair Sanchez on 01-13-2025 Basophils (Bld) [#/Vol] 0 10*3/uL 0.0 - 0.2 10*3/uL [facility] Basophils/100 WBC (Bld) 0.1 % 0.0 - 2.0 % [facility] Eosinophils (Bld) [#/Vol] 0 10*3/uL 0.0 - 0.5 10*3/uL [facility] Eosinophils/100 WBC (Bld) 0.2 % 0.0 - 6.0 % [facility] Erythrocyte distribution width (RBC) [Ratio] 13.7 % 11.5 - 15.0 % [facility] Hematocrit (Bld) [Volume fraction] 34.2 % Low 35.0 - 47.0 % [facility] Hemoglobin (Bld) [Mass/Vol] 10.2 g/dL Low 11.7 - 16.0 g/dL [facility] Immature granulocytes (Bld) [#/Vol] 0 10*3/uL NINF - 0.1 10*3/uL [facility] [email or web address] Immature granulocytes/100 WBC (Bld) 0.3 % 0.0 - 2.0 % [facility] Interpretation and review of laboratory results Abnormal [facility] Lymphocytes (Bld) [#/Vol] 0.8 10*3/uL Low 1.0 - 4.3 10*3/uL [facility] Lymphocytes/100 WBC (Bld) 6.3 % Low 15.0 - 45.0 % [facility] MCH (RBC) [Entitic mass] 29.1 pg 26. 0 - 34.0 pg [facility] MCHC (RBC) [Mass/Vol] 29.8 % Low 30.5 - 36.0 % [facility] MCV (RBC) [Entitic vol] 97.7 fL 77.0 - 99.0 fL [facility] [email or web address] Monocytes (Bld) [#/Vol] 0.9 10*3/uL 0.0 - 0.9 10*3/uL [facility] Monocytes/100 WBC (Bld) 7.3 % 5.0 - 13.0 % [facility] Neutrophils (Bld) [#/Vol] 10.8 10*3/uL High 1.8 - 7.5 10*3/uL [facility] [email or web address] Neutrophils/100 WBC (Bld) 85.8 % High 38.0 - 82.0 % [facility] [email or web address] Nucleated RBC/100 WBC (Bld) [Ratio] 0 % [facility] Platelet mean volume (Bld) [Entitic vol] 9.7 fL 9.0 - 12.7 fL [facility] [email or web address] Platelets (Bld) [#/Vol] 152 10*3/uL 140 - 440 10*3/uL [facility] RBC (Bld) [#/Vol] 3.5 10*6/uL Low 3.80 - 5.2 0 10*6/uL [facility] WBC (Bld) [#/Vol] 12.5 10*3/uL High 3.6 - 10.7 10*3/uL [facility] CBC WITH AUTO DIFFERENTIALon 01-13-2025 Basophils (Bld) [#/Vol] 0.0 10*3/uL Normal 0.0-0.2 [facility] Comment on above: Performed By: #### L [id number] ####Smt Operator: HANS PAULSON ([id number])[facility] [place] ([facility])[address] Basophils/100 WBC (Bld) 0.1 % Normal 0.0-2.0 [facility] Comment on above: Performed By: #### L [id number] ####Smt Operator: HANS PAULSON ([id number])[facility] [place] ([facility])[address] Eosinophils (Bld) [#/Vol] 0.0 10*3/uL Normal 0.0-0.5 [facility] Comment on above: Performed By: #### L [id number] ####Smt Operator: HANS PAULSON ([phone])[facility] [place] ([facility])[address] [place] [address] Eosinophils/100 WBC (Bld) 0.2 % Normal 0.0-6.0 [facility] Comment on above: Performed By: #### L [id number] ####Smt Operator: HANS PAULSON ([id number])[facility] [place] ([facility])[address] Erythrocyte distribution width (RBC) [Ratio] 13.7 % Normal 11.5-15.0 [facility] Comment on above: Performed By: #### L [id number] ####Smt Operator: HANS PAULSON ([id number])[facility] [place] ([facility])[address] Hematocrit (Bld) [Volume fraction] 34.2 % Low 35.0-47.0 [facility] Comment on above: Performed By: #### L [id number] ####Smt Operator: HANS ALCANTARESCOBAR ([id number])[facility] [place] ([facility])[address] Hemoglobin (Bld) [Mass/Vol] 10.2 g/dL Low 11.7-16.0 [facility] Comment on above: Performed By: #### L [id number] ####Smt Operator: HANS PAULSON ([phone])[facility] ([facility])[address] IMMATURE GRANS % 0.3 % Normal 0.0-2.0 [facility] Comment on above: Performed By: #### L [id number] ####Smt Operator: HANS PAULSON ([id number])[facility] ([facility])[address] IMMATURE GRANS ABSOLUTE 0.0 10*3/uL Normal <0.1 [facility] Comment on above: Performed By: #### L [id number] ####Smt Operator: HANS PAULSON ([id number])[facility] ([facility])[address] Lymphocytes (Bld) [#/Vol] 0.8 10*3/uL Low 1.0-4.3 [facility] Comment on above: Performed By: #### L [id number] ####Smt Operator: HANS PAULSON ([id number])[facility] [place] ([facility])[address] [place] [address] [place] Lymphocytes/100 WBC (Bld) 6.3 % Low 15.0-45.0 [facility] Comment on above: Performed By: #### L [id number] ####Smt Operator: HANS PAULSON ([phone])[facility] ([facility])[address] MCH (RBC) [Entitic mass] 29.1 pg Normal 26.0-34.0 [facility] Comment on above: Performed By: #### L [id number] ####Smt Operator: HANS ALCANTARESCOBAR ([phone])[facility] [place] ([facility])[address] MCHC 29.8 % Low 30.5-36.0 [facility] Comment on above: Performed By: #### L [id number] ####Smt Operator: HANS ALCANTARESCOBAR ([id number])[facility] [place] ([facility])[address] MCV (RBC) [Entitic vol] 97.7 fL Normal 77.0-99.0 [facility] Comment on above: Performed By: #### L [id number] ####Smt Operator: HANS PAULSON ([phone])[facility] [place] ([facility])[address] Monocytes (Bld) [#/Vol] 0.9 10*3/uL Normal 0.0-0.9 [facility] Comment on above: Performed By: #### L [id number] ####Smt Operator: HANS PAULSON ([id number])[facility] ([facility])[address] Monocytes/100 WBC (Bld) 7.3 % Normal 5.0-13.0 [facility] Comment on above: Performed By: #### L [id number] ####Smt Operator: HANS PAULSON ([id number])[facility] ([facility])[address] NEUTROPHILS ABSOLUTE 10.8 10*3/uL High 1.8-7.5 [facility] Comment on above: Performed By: #### L [id number] ####Smt Operator: HANS PAULSON ([id number])[facility] [place] ([facility])[address] Neutrophils/100 WBC (Bld) 85.8 % High 38.0-82.0 [facility] Comment on above: Performed By: #### L [id number] ####Smt Operator: HANS PAULSON ([phone])[facility] [place] ([facility])[address] NRBC 0.0 /100 WBCs Normal 0.0-2.0 [facility] Comment on above: Performed By: #### L [id number] ####Smt Operator: HANS PAULSON ([phone])[facility] [place] ([facility])[address] Platelet mean volume (Bld) [Entitic vol] 9.7 fL Normal 9.0-12.7 [facility] Comment on above: Performed By: #### L [id number] ####Smt Operator: HANS PAULSON ([phone])[facility] [place] ([facility])[address] Platelets (Bld) [#/Vol] 152 10*3/uL Normal 140-440 [facility] Comment on above: Performed By: #### L [id number] ####Smt Operator: HANS PAULSON ([phone])[facility] [place] ([facility])[address] RBC (Bld) [#/Vol] 3.50 10*6/uL Low 3.80-5.20 [facility] Comment on above: Performed By: #### L [id number] ####Smt Operator: HANS PAULSON ([phone])[facility] [place] ([facility])[address] [place] [address] [place] WBC (Bld) [#/Vol] 12.5 10*3/uL High 3.6-10.7 [facility] Comment on above: Performed By: #### L [id number] ####Smt Operator: HANS PAULSON ([phone])[facility] [place] ([facility])[address] COMPREHENSIVE METABOLIC PANE Cory 01-13-2025 Albumin [Mass/Vol] 2.9 g/dL Low 3.1-4.5 [facility] Comment on above: Performed By: #### L [id number] ####Smt Operator: HANS PAULSON ([phone])[facility] [place] ([facility])[address] ALP [Catalytic activity/Vol] 124 U/L Normal 40-150 [facility] Comment on above: Performed By: #### L AB17 ####Smt Operator: HANS PAULSON ([phone])[facility] [place] ([facility])[address] ALT [Catalytic activity/Vol] 33 U/L High <30 [facility] Comment on above: Performed By: #### L AB17 ####Smt Operator: HANS PAULSON ([phone])[facility] [place] ([facility])[address] Anion gap [Moles/Vol] 4 mmol/L Normal 3-13 [facility] Comment on above: Performed By: #### L AB17 ####Smt Operator: HANS PAULSON ([phone])[facility] [place] ([facility])[address] AST [Catalytic activity/Vol] 27 U/L Normal <34 [facility] Comment on above: Performed By: #### L AB17 ####Smt Operator: HANS PAULSON ([id number])[facility] [place] ([facility])[address] Bilirubin [Mass/Vol] 0.3 mg/dL Normal <1.2 [facility] Comment on above: Performed By: #### L AB17 ####Smt Operator: HANS PAULSON ([phone])[facility] [place] ([facility])[address] Calcium [Mass/Vol] 8.6 mg/dL Low 8.8-10.0 [facility] Comment on above: Performed By: #### L AB17 ####Smt Operator: HANS PAULSON ([phone])[facility] ([facility])[address] Chloride [Moles/Vol] 101 mmol/L Normal 98-107 [facility] Comment on above: Performed By: #### L AB17 ####Smt Operator: HANS PAULSON ([phone])[facility] ([facility])[address] CO2 [Moles/Vol] 34 mmol/L High 23-31 [facility] Comment on above: Performed By: #### L AB17 ####Smt Operator: HANS PAULSON ([id number])[facility] [place] ([facility])[address] Creatinine [Mass/Vol] 0.49 mg/dL Low 0.58-1.12 [facility] Comment on above: Performed By: #### L AB17 ####Smt Operator: HANS PAULSON ([id number])[facility] ([facility])[address] GLOMERULAR FILTRATION RATE ML/MIN/1.73 SQ M.PREDICTED >90.0 Normal >60.0 [facility] Comment on above: Result Comment: Calc ulation based on the Chronic Kidney Disease Epidemiology Collaboration (CKD-EPI) equation refit without adjustment for race Performed By: #### L AB17 ####Smt Operator: HANS PAULSON ([phone])[facility] ([facility])[address] [place] [address] [place] Glucose [Mass/Vol] 98 mg/dL Normal 82-115 [facility] Comment on above: Performed By: #### L AB17 ####Smt Operator: HANS PAULSON ([phone])[facility] ([facility])[address] [place] [address] [place] Potassium [Moles/Vol] 4.7 mmol/L Normal 3.5-5.1 [facility] Comment on above: Result Comment: [facility] potassium values may be up to 0.5 mmol/L lower than serum values. Performed By: #### L AB17 ####Smt Operator: HANS PAULSON ([phone])[facility] ([facility])[address] Protein [Mass/Vol] 6.4 g/dL Normal 6.4-8.3 [facility] Comment on above: Performed By: #### L AB17 ####Smt Operator: HASN PAULSON ([id number])[facility] ([facility])[address] Sodium [Moles/Vol] 139 mmol/L Normal 136-145 [facility] Comment on above: Performed By: #### L AB17 ####Smt Operator: HANS PAULSON ([phone])[facility] ([facility])[address] [place] [address] Urea nitrogen [Mass/Vol] 17 mg/dL Normal 9-23 [facility] Comment on above: Performed By: #### L AB17 ####Smt Operator: HANS PAULSON ([phone])[facility] ([facility])[address] [place] [address] Comprehensive metabolic 1998 panelon 01-13-2025 Albumin [Mass/Vol] 2.9 g/dL Low 3.1 - 4.5 g/dL [facility] ALP [Catalytic activity/Vol] 124 U/L 40 - 150 U/L [facility] ALT [Catalytic activity/Vol] 33 U/L High NINF - 30 U/L [facility] Anion gap [Moles/Vol] 4 mmol/L 3 - 13 mmol/L [facility] AST [Catalytic activity/Vol] 27 U/L NINF - 34 U/L [facility] Bilirubin [Mass/Vol] 0.3 mg/dL NINF - 1.2 mg/dL [facility] Calcium [Mass/Vol] 8.6 mg/dL Low 8.8 - 10. 0 mg/dL [facility] Chloride [Moles/Vol] 101 mmol/L 98 - 10 7 mmol/L [facility] CO2 [Moles/Vol] 34 mmol/L High 23 - 31 mmol/L [facility] Creatinine [Mass/Vol] 0.49 mg/dL Low 0.58 - 1.12 mg/dL [facility] GFR/1.73 sq M.predicted (S/P/Bld) [Vol rate/Area] - PINF [facility] Comment on above: Calculation based on the Chronic Kidney Disease Epidemiology Collaboration (CKD-EPI) equation refit without adjustment for race Glucose [Mass/Vol] 98 mg/dL 82 - 115 mg/dL [facility] Interpretation and review of laboratory results Abnormal [facility] Potassium [Moles/Vol] 4.7 mmol/L 3.5 - 5.1 mmol/L [facility] Comment on above: Plasma potassium martín ues may be up to 0.5 mmol/L lower than serum values. Protein [Mass/Vol] 6.4 g/dL 6.4 - 8.3 g/dL [facility] Sodium [Moles/Vol] 139 mmol/L 136 - 145 mmol/L [facility] Urea nitrogen [Mass/Vol] 17 mg/dL 9 - 23 mg/d L [facility] Consulton 01-13-2025 Consult Normal [facility] Laboratory - Chemistry and C hemistry - challengeOrdered By: Rolando Shelton on 01-13-2025 Base excess Calc (BldV) [Moles/Vol] 6.3 mmol/L High -3.0 - 3.0 mmol/L [facility] CO2 (BldV) [Partial pressure] 80.8 mm[Hg] High [facility] CO2 [Moles/Vol] 38.1 mmol/L High 23.0 - 30.0 mmol/L [facility] HCO3 (Bld) [Moles/Vol] 35.6 mmol/L High 21.0 - 30.0 mmol/L [facility] Oxygen (BldV) [Partial pressure] 35.8 mm[Hg] mm Hg [facility] pH (BldV) 7.262 [pH] Low 7.320 - 7.420 [facility] Laboratory - Hematology and Cell countsOrdered By: Rolando Shelton on 01-13-2025 Hemoglobin (Bld) [Mass/Vol] 11.3 g/dL Low 12.0 - 16.0 g/dl [facility] No Panel InformationOrdered By: Rolando Shelton on 01-13-2025 Amount Of Oxygen 55 [facility] Interpretation and review of laboratory results Abnormal [facility] Source Of Oxygen BiPAP [facility] Maxi alth Assessment of oxygenation is best done with an arterial blood gas determination. Reference ranges for pO2, bicarbonate, and base excess are for mixed venous blood. Specimens drawn from a peripheral vein will often have higher values. [facility] Progress Noteon 01-13-2025 Progress Note Normal [facility] h System [facility] Progress Note Normal [facility] Vital signsOrdered By: Andres Shelton on 01-13-2025 Oxygen saturation in Venous blood 63.4 % [facility] XR Chest Single viewon 01-13 Emphysema, unchanged . Parenchymal fibrotic changes. Left subclavian MediPort, unchanged. Report Dictated on Electronically Signed By: Jaspreet Jeong DO Electronically Signed Date/Time: 01/13/2025 6:33 AM EDT [facility] [employer] Patient Name: GONZALO DELUCA : 1955 [...] catheter tip overlies mid SVC, unchanged. [facility] Jaspreet Jeong DO - 01/13/2025 [...] Electronically Signed Date/Time: 01/13/2025 6:33 AM EDT [facility] Radiology Study observation (narrative) [facility] XR Chest Single viewOrdered By: Jaspreet Jeong on 01-13-2025 [facility] [email or web address] Work Phone: ACETAMINOPHEN LEVELon 2024 Acetaminophen [Mass/Vol] ug/mL Low 10.0-30.0 [facility] Comment on above: Result Comment: KYM Gilmore COMMENTS:Acetaminophen concentrations greater than 150 ug/mL at 4 hours after ingestion and greater than 40 ug/mL at 12 hours after ingestion are often associated with toxicity. Performed By: #### L [id number], [id number], LAB34, [id number] ####Smt Operator: HANS PAULSON ([phone])[facility] JOSE [facility]HON[facility] ([facility])[address] [place] [address] Acetaminophen [Mass/Vol]on 1 Acetaminophen concentrations greater than 150 ug/mL at 4 hours after ingestion and greater than 40 ug/mL at 12 hours after ingestion are often associated with toxicity. [facility] BLOOD CULTUREon 01-12-2025 Bacteria identified Cx Nom (Bld) Normal [facility] Comment on above: Performed By: #### L [id number] ####Smt Operator: AMELIE ELIZABETH ([phone])[facility] ([facility])[address] [place] [address] BLOOD GAS, VENOUSon 10-25-20 25 AMOUNT OF OXYGEN 60 Normal [facility] Comment on above: Result Comment: KYM Gilmore COMMENTS:Assessment of oxygenation is best done with an arterial blood gas determination. Reference ranges for pO2, bicarbonate, and base excess are for mixed venous blood. Specimens drawn from a peripheral vein will often have higher values. Performed By: #### L AB79 ####Smt Operator: HANS PAULSON ([phone])[facility] [place] ([facility])[address] Base excess Calc (BldV) [Moles/Vol] 4.0 mmol/L High -3.0-3.0 [facility] Comment on above: Performed By: #### L AB79 ####Smt Operator: HANS PAULSON ([phone])[facility] (SB[facility])[address] CO2 [Moles/Vol] 37.1 mmol/L High 23.0-30.0 [facility] Comment on above: Performed By: #### L AB79 ####Smt Operator: HANS PAULSON ([phone])[facility] (SB[facility]AB)[address] HCO3 (Bld) [Moles/Vol] 34.4 mmol/L High 21.0-30.0 [facility] Comment on above: Performed By: #### L AB79 ####Smt Operator: HANS PAULSON ([phone])[facility] [place] ([facility])[address] Hemoglobin (Bld) [Mass/Vol] 12.1 g/dL Normal Screen only [facility] Comment on above: Performed By: #### L AB79 ####Smt Operator: HANS PAULSON ([phone])[facility] (SB[facility])[address] OXYGEN (MM HG) IN VENOUS BLOOD 30.0 mm Hg Normal [facility] Comment on above: Performed By: #### L AB79 ####Smt Operator: HANS PAULSON ([phone])[facility] [place] (SBHLAB)[address] OXYGEN SATURATION (%) IN VENOUS BLOOD 50.1 % Normal [facility] Comment on above: Performed By: #### L AB79 ####Smt Operator: HANSRONALD PAULSON ([phone])[facility] [place] (SBHLAB)[address] [place] [address] [place] PCO2, VICKY 88.2 mm Hg High 35.0-53.0 [facility] Comment on above: Performed By: #### L AB79 ####Smt Operator: HANSRONALD PAULSON ([phone])[facility] (HLAB)[address] PH VENOUS 7.209 Low 7.320-7.420 [facility] Comment on above: Performed By: #### L AB79 ####Smt Operator: HANSRONALD PAULSON ([phone])[facility] ([facility])[address] SOURCE OF OXYGEN Non-Invasive Ventilator Normal [facility] Comment on above: Performed By: #### L AB79 ####Smt Operator: HANSRONALD PAULSON ([phone])[facility] ([facility])[address] [place] [address] AMOUNT OF OXYGEN 60% Normal [facility] Comment on above: Result Comment: KYM Gilmore COMMENTS:Assessment of oxygenation is best done with an arterial blood gas determination. Reference ranges for pO2, bicarbonate, and base excess are for mixed venous blood. Specimens drawn from a peripheral vein will often have higher values. Performed By: #### L AB79 ####Smt Operator: HANSRONALD PAULSON ([phone])[facility] [place] (SB[facility])[address] Base excess Calc (BldV) [Moles/Vol] 2.6 mmol/L Normal -3.0-3.0 [facility] Comment on above: Performed By: #### L AB79 ####Smt Operator: HANS PAULSON ([phone])[facility] [place] (SB[facility])[address] CO2 [Moles/Vol] 35.9 mmol/L High 23.0-30.0 [facility] Comment on above: Performed By: #### L AB79 ####Smt Operator: HANS PAULSON ([phone])[facility] [place] ([facility])[address] HCO3 (Bld) [Moles/Vol] 33.2 mmol/L High 21.0-30.0 [facility] Comment on above: Performed By: #### L AB79 ####Smt Operator: HANS PAULSON ([phone])[facility] [place] ([facility])[address] Hemoglobin (Bld) [Mass/Vol] 12.3 g/dL Normal Screen only [facility] Comment on above: Performed By: #### L AB79 ####Smt Operator: HANS PAULSON ([phone])[facility] [place] ([facility])[address] OXYGEN (MM HG) IN VENOUS BLOOD 60.9 mm Hg Normal [facility] Comment on above: Performed By: #### L AB79 ####Smt Operator: HANS PAULSON ([id number])[facility] (SBHLAB)[address] OXYGEN SATURATION (%) IN VENOUS BLOOD 85.8 % Normal [facility] Comment on above: Performed By: #### L AB79 ####Smt Operator: HANS PAULSON ([phone])[facility] (SBHLAB)[address] PCO2, VICKY 88.4 mm Hg High 35.0-53.0 [facility] Comment on above: Performed By: #### L AB79 ####Smt Operator: HANS PAULSON ([phone])[facility] [place] ([facility])[address] PH VENOUS 7.193 Low 7.320-7.420 [facility] Comment on above: Performed By: #### L AB79 ####Smt Operator: HANS PAULSON ([phone])[facility] [place] ([facility])[address] SOURCE OF OXYGEN BiPAP Normal [facility] Comment on above: Performed By: #### L AB79 ####Smt Operator: HANS PAULSON ([phone])[facility] (SB[facility])[address] AMOUNT OF OXYGEN 3 Normal [facility] Comment on above: Result Comment: KYM Gilmore COMMENTS:Assessment of oxygenation is best done with an arterial blood gas determination. Reference ranges for pO2, bicarbonate, and base excess are for mixed venous blood. Specimens drawn from a peripheral vein will often have higher values. Performed By: #### L AB79 ####Smt Operator: HANS PAULSON ([phone])[facility] [place] ([facility])[address] Base excess Calc (BldV) [Moles/Vol] 5.5 mmol/L High -3.0-3.0 [facility] Comment on above: Performed By: #### L AB79 ####Smt Operator: HANSRONALD PAULSON ([phone])[facility] [place] ([facility])[address] [place] [address] [place] CO2 [Moles/Vol] 37.1 mmol/L High 23.0-30.0 [facility] Comment on above: Performed By: #### L AB79 ####Smt Operator: HANSRONALD PAULSON ([phone])[facility] [place] (SB[facility])[address] [place] [address] [place] HCO3 (Bld) [Moles/Vol] 34.8 mmol/L High 21.0-30.0 [facility] Comment on above: Performed By: #### L AB79 ####Smt Operator: HANS WALDROPKimESCOBAR ([phone])[facility] [place] (SBHLAB)[address] Hemoglobin (Bld) [Mass/Vol] 13.8 g/dL Normal Screen only [facility] Comment on above: Performed By: #### L AB79 ####Smt Operator: HANS LORENE ([phone])[facility] [place] ([facility])[address] OXYGEN (MM HG) IN VENOUS BLOOD 51.2 mm Hg Normal [facility] Comment on above: Performed By: #### L AB79 ####Smt Operator: HANS LORENE ([id number])[facility] [place] ([facility])[address] OXYGEN SATURATION (%) IN VENOUS BLOOD 82.4 % Normal [facility] Comment on above: Performed By: #### L AB79 ####Smt Operator: HASN ALCANTARESCOBAR ([phone])[facility] [place] ([facility])[address] PCO2, VICKY 74.5 mm Hg High 35.0-53.0 [facility] Comment on above: Performed By: #### L AB79 ####Smt Operator: HANS WALDROPIVELISSE ([id number])[facility] [place] ([facility])[address] PH VENOUS 7.287 Low 7.320-7.420 [facility] Comment on above: Performed By: #### L AB79 ####Smt Operator: HANS LORENE ([phone])[facility] [place] ([facility])[address] SOURCE OF OXYGEN Nasal Cannula (LPM) Normal [facility] Comment on above: Performed By: #### L AB79 ####Smt Operator: HANS ALCANTARESCOBAR ([phone])[facility] [place] ([facility])[address] CBC W Auto Differential pane l (Bld)Ordered By: Eh Alves on 01-12-2025 Erythrocyte distribution width (RBC) [Ratio] 13.9 % 11.5 - 15.0 % [facility] Hematocrit (Bld) [Volume fraction] 38.5 % 35.0 - 47.0 % [facility] Hemoglobin (Bld) [Mass/Vol] 11.5 g/dL Low 11.7 - 16.0 g/dL [facility] Interpretation and review of laboratory results Abnormal [facility] MCH (RBC) [Entitic mass] 28.8 pg 26. 0 - 34.0 pg [facility] MCHC (RBC) [Mass/Vol] 29.9 % Low 30.5 - 36.0 % [facility] MCV (RBC) [Entitic vol] 96.5 fL 77.0 - 99.0 fL [facility] Platelet mean volume (Bld) [Entitic vol] 9.9 fL 9.0 - 12.7 fL [facility] Platelets (Bld) [#/Vol] 168 10*3/uL 140 - 440 10*3/uL [facility] RBC (Bld) [#/Vol] 3.99 10*6/uL 3.80 - 5.2 0 10*6/uL [facility] WBC (Bld) [#/Vol] 13.7 10*3/uL High 3.6 - 10.7 10*3/uL [facility] CBC WITH AUTO DIFFERENTIALon 01-12-2025 Erythrocyte distribution width (RBC) [Ratio] 13.9 % Normal 11.5-15.0 [facility] Comment on above: Performed By: #### L [id number], [id number] ####Smt Operator: HANS PAULSON ([phone])[facility] (SB[facility])[address] Hematocrit (Bld) [Volume fraction] 38.5 % Normal 35.0-47.0 [facility] Comment on above: Performed By: #### L [id number], [id number] ####Smt Operator: HANS PAULSON ([phone])[facility] ([facility])[address] Hemoglobin (Bld) [Mass/Vol] 11.5 g/dL Low 11.7-16.0 [facility] Comment on above: Performed By: #### L [id number], [id number] ####Smt Operator: HANS PAULSON ([phone])[facility] [place] (SBHLAB)[address] MCH (RBC) [Entitic mass] 28.8 pg Normal 26.0-34.0 [facility] Comment on above: Performed By: #### L [id number], [id number] ####Smt Operator: HANS PAULSON ([id number])[facility]ITAL[facility] (SBHLAB)[address] MCHC 29.9 % Low 30.5-36.0 [facility] Comment on above: Performed By: #### L [id number], [id number] ####Smt Operator: HANS PAULSON ([id number])[facility] [place] (SBHLAB)[address] MCV (RBC) [Entitic vol] 96.5 fL Normal 77.0-99.0 [facility] Comment on above: Performed By: #### L [id number], [id number] ####Smt Operator: HANS PAULSON ([id number])[facility]ENTERNorm[facility] [employer] [facility] [facility] [facility] CLINICRaimundo (SBHLAB)[address] Platelet mean volume (Bld) [Entitic vol] 9.9 fL Normal 9.0-12.7 [facility] Comment on above: Performed By: #### L [id number], [id number] ####Smt Operator: HANS PAULSON ([id number])[facility]ENTERNorm[facility]ENTERBLA[facility] (SBHLAB)[address] Platelets (Bld) [#/Vol] 168 10*3/uL Normal 140-440 [facility] Comment on above: Performed By: #### L [id number], [id number] ####Smt Operator: HANS PAULSON ([id number])[facility] RIC[place] (SBHLAB)[address] RBC (Bld) [#/Vol] 3.99 10*6/uL Normal 3.80-5.20 [facility] Comment on above: Performed By: #### L [id number], [id number] ####Smt Operator: HANS PAULSON ([id number])[facility] (SBHLAB)[address] WBC (Bld) [#/Vol] 13.7 10*3/uL High 3.6-10.7 [facility] Comment on above: Performed By: #### L [id number], [id number] ####Smt Operator: HANS PAULSON ([phone])[facility] (SB[facility])[address] COMPREHENSIVE METABOLIC PANE Cory 01-12-2025 Albumin [Mass/Vol] 3.3 g/dL Normal 3.1-4.5 [facility] Comment on above: Performed By: #### L AB46, LAB17, [id number], [id number] ####Smt Operator: HANS PAULSON ([id number])[facility] (SB[facility])[address] ALP [Catalytic activity/Vol] 154 U/L High 40-150 [facility] Comment on above: Performed By: #### L AB46, LAB17, [id number], [id number] ####Smt Operator: HANS PAULSON ([id number])[facility] ([facility])[address] ALT [Catalytic activity/Vol] 39 U/L High <30 [facility] Comment on above: Performed By: #### L AB46, LAB17, [id number], [id number] ####Smt Operator: HANS PAULSON ([phone])[facility] ([facility])[address] Anion gap [Moles/Vol] 7 mmol/L Normal 3-13 [facility] Comment on above: Performed By: #### L AB46, LAB17, [id number], [id number] ####Smt Operator: HANS PAULSON ([id number])[facility] [place] ([facility])[address] AST [Catalytic activity/Vol] 33 U/L Normal <34 [facility] Comment on above: Performed By: #### L AB46, LAB17, [id number], [id number] ####Smt Operator: HANS PAULSON ([id number])[facility]IM[facility]OSPITALN (SBHLAB)[address] Bilirubin [Mass/Vol] 0.4 mg/dL Normal <1.2 [facility] Comment on above: Performed By: #### L AB46, LAB17, [id number], [id number] ####Smt Operator: HANS PAULSON ([phone])[facility]N (SBHLAB)[address] Calcium [Mass/Vol] 8.9 mg/dL Normal 8.8-10.0 [facility] Comment on above: Performed By: #### L AB46, LAB17, [id number], [id number] ####Smt Operator: HANS PAULSON ([id number])[facility] [place] (SB[facility])[address] [place] [address] [place] Chloride [Moles/Vol] 101 mmol/L Normal 98-107 [facility] Comment on above: Performed By: #### L AB46, LAB17, [id number], [id number] ####Smt Operator: HANS PAULSON ([phone])[facility] [place] ([facility])[address] [place] [address] [place] CO2 [Moles/Vol] 33 mmol/L High 23-31 [facility] Comment on above: Performed By: #### L AB46, LAB17, [id number], [id number] ####Smt Operator: HANS PAULSON ([id number])[facility] [place] ([facility])[address] Creatinine [Mass/Vol] 0.53 mg/dL Low 0.58-1.12 [facility] Comment on above: Performed By: #### L AB46, LAB17, [id number], [id number] ####Smt Operator: HANS PAULSON ([phone])[facility]ENTERNorma VILARaimundo (SBHLAB)[address] GLOMERULAR FILTRATION RATE ML/MIN/1.73 SQ M.PREDICTED >90.0 Normal >60.0 [facility] Comment on above: Result Comment: Calc ulation based on the Chronic Kidney Disease Epidemiology Collaboration (CKD-EPI) equation refit without adjustment for race Performed By: #### L AB46, LAB17, [id number], [id number] ####Smt Operator: HANS PAULSON ([id number])[facility]ENTERNorma BRANCHMIMBRES MEMORIAL HOSPITALRaimundo ([facility])[address] [place] [address] Glucose [Mass/Vol] 138 mg/dL High 82-115 [facility] Comment on above: Performed By: #### L AB46, LAB17, [id number], [id number] ####Smt Operator: HANS PAULSON ([id number])[facility]ERNorm[facility] BRANCHMIMBRES MEMORIAL HOSPITALRaimundo ([facility])[address] Potassium [Moles/Vol] 4.4 mmol/L Normal 3.5-5.1 [facility] Comment on above: Result Comment: [facility] potassium values may be up to 0.5 mmol/L lower than serum values. Performed By: #### L AB46, LAB17, [id number], [id number] ####Smt Operator: HANS PAULSON ([id number])[facility]ENTERNorma [facility] (HLAB)[address] Protein [Mass/Vol] 7.1 g/dL Normal 6.4-8.3 [facility] Comment on above: Performed By: #### L AB46, LAB17, [id number], [id number] ####Smt Operator: HANS PAULSON ([id number])[facility]ERNorm[facility] RICKS (SB[facility]AB)[address] Sodium [Moles/Vol] 141 mmol/L Normal 136-145 [facility] Comment on above: Performed By: #### L AB46, LAB17, [id number], [id number] ####Smt Operator: HANS PAULSON ([phone])[facility] JOSE CARLOSHONORHE[facility] (SBHLAB)[address] Urea nitrogen [Mass/Vol] 16 mg/dL Normal 9-23 [facility] Comment on above: Performed By: #### L AB46, LAB17, [id number], [id number] ####Smt Operator: HANS PAULSON ([id number])[facility] JOSE CARLOSMIMBRES MEMORIAL HOSPITALRaimundo (SBHLAB)[address] COVID-19, Flu A/B, and RSV C omboon 01-12-2025 Interpretation and review of laboratory results Normal [facility] Comprehensive metabolic 1998 panelon 01-12-2025 Albumin [Mass/Vol] 3.3 g/dL 3.1 - 4.5 g/dL [facility] ALP [Catalytic activity/Vol] 154 U/L High 40 - 150 U/L [facility] ALT [Catalytic activity/Vol] 39 U/L [facility]/L [facility] Anion gap [Moles/Vol] 7 mmol/L 3 - 13 mmol/L [facility] AST [Catalytic activity/Vol] 33 U/L NINF - 34 U/L [facility] Bilirubin [Mass/Vol] 0.4 mg/dL [facility] - 1.2 mg/dL [facility] Calcium [Mass/Vol] 8.9 mg/dL 8.8 - 10. 0 mg/dL [facility] Chloride [Moles/Vol] 101 mmol/L 98 - 10 7 mmol/L [facility] CO2 [Moles/Vol] 33 mmol/L High 23 - 31 mmol/L [facility] Creatinine [Mass/Vol] 0.53 mg/dL Low 0.58 - 1.12 mg/dL [facility] GFR/1.73 sq M.predicted (S/P/Bld) [Vol rate/Area] - PINF [facility] Comment on above: Calculation based on the Chronic Kidney Disease Epidemiology Collaboration (CKD-EPI) equation refit without adjustment for race Glucose [Mass/Vol] 138 mg/dL High 82 - 115 mg/dL [facility] Interpretation and review of laboratory results Abnormal [facility] Potassium [Moles/Vol] 4.4 mmol/L 3.5 - 5.1 mmol/L [facility] Comment on above: Plasma potassium martín ues may be up to 0.5 mmol/L lower than serum values. 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 Pt awake and alert and oriented on transport. All belongings with pt. Normal [facility] ED Nursing Note Report to TWINE REELING MACHINE OPERATOR at this time. All questions answered. Pt Daughter Karishma Updated at this time as well. All questions answered. Normal [facility] ED Nursing Note RT called for NIV placement. Normal [facility] ED Provider Noteon ED Provider Note Normal [facility] ETHANOLon 01-12-2025 ETHANOL IN SER/PLAS- RODRIGUEZ <10 Normal <10 [facility] Comment on above: Result Comment: KYM Gilmore COMMENTS:ASSET RECOVERY SPECIALIST depression is seen >100 mg/dL.NOTE: This result is for medical treatment only. Analysis performed using non-forensic procedures. Performed By: #### L AB46, LAB17, [id number], [id number] ####Smt Operator: HANS PAULSON ([phone])[facility] (SB[facility])[address] [place] [address] ETHYL GLUCURONIDE SCREEN, UR INEon 01-12-2025 ETHYL GLUCURONIDE, URINE Negative Normal Negative [facility] Comment on above: Result Comment: KYM [...] been determined by the clinical laboratories of [facility]. Performed By: #### L [id number] ####Smt Operator: AMELIE ELIZABETH ([phone])[facility] ([facility])[address] [place] [address] Ethanol (Bld) [Mass/Vol]on Ethanol [Mass/Vol] mg/dL NINF - 10 mg/dL [facility] Interpretation and review of laboratory results Normal [facility] ASSET RECOVERY SPECIALIST depression is se en >100 mg/dL. NOTE: This result is for medical treatment only. Analysis performed using non-forensic procedures. [facility] HIGH SENSITIVITY TROPONIN, S ERIAL BASELINEon 01-12-2025 TROPONIN HS SERIAL BASELINE 13 ng/L Normal <=14 [facility] Comment on above: Result Comment: In i ndividuals presenting with symptoms > 2h, a baseline troponin <= 5 ng/L suggests acutecardiac injury is unlikely and further serial testing is generally not indicated. Performed By: #### L [id number], [id number], [id number], [id number] ####Smt Operator: HANS PAULSON ([phone])[facility] ([facility])[address] [place] [address] HIGH SENSITIVITY TROPONIN, S ERIAL, SECOND TESTon 01-12-2025 2H TROPONIN HS (SERIAL 2ND TROPONIN) 9 ng/L Normal <=14 [facility] Comment on above: Result Comment: 2h t roponin (2nd troponin) samples collected between 1h 40 min and 2h and 20 min of the baseline collection time can be utilized to interpret delta troponins as per [facility] algorithms. Samples collected outside this timeframe need to be interpreted clinically.Rising or falling troponin delta between 2 ??? 15 ng/L as compared to baseline value requires a 3rd serial troponin Performed By: #### L [id number], [id number], [id number], [id number] ####Smt Operator: HANS PAULSON ([phone])[facility] [place] [address] HIGH SENSITIVITY TROPONIN, S ERIAL, THIRD TESTon 01-12-2025 4H TROPONIN HS (SERIAL 3RD TROPONIN) 8 ng/L Normal <=14 [facility] Comment on above: Result Comment: Risi ng or falling troponin delta below 2 ng/L as compared to 2h troponin value suggeststhat acute cardiac injury is unlikely. Performed By: #### L [id number] ####Smt Operator: HANS PAULSON ([phone])[facility] ([facility])[address] [place] [address] LACTIC ACID WITH REFLEXon Lactate [Moles/Vol] 0.8 mmol/L Normal 0.5-2.2 [facility] Comment on above: Performed By: #### L [id number] ####Smt Operator: HANS PAULSON ([phone])[facility] [place] [address] LEGIONELLA AND STREPTOCOCCUS URINE ANTIGENon 01-12-2025 LEGIONELLA AND STREPTOCOCCUS URINE ANTIGEN Normal [facility] Comment on above: Performed By: #### L [id number] ####Smt Operator: AMELIE ELIZABETH ([phone])[facility] ([facility])[address] [place] [address] Laboratory - Chemistry and C hemistry - challengeon 01-12-2025 Procalcitonin [Mass/Vol] 0.21 ng/mL High NICHOLAS F - 0.07 ng/mL [facility] Health Base excess Calc (BldV) [Moles/Vol] 4 mmol/L High -3.0 - 3.0 mmol/L [facility] CO2 (BldV) [Partial pressure] 88.2 mm[Hg] High [facility] CO2 [Moles/Vol] 37.1 mmol/L High 23.0 - 30.0 mmol/L [facility] HCO3 (Bld) [Moles/Vol] 34.4 mmol/L High 21.0 - 30.0 mmol/L [facility] Oxygen (BldV) [Partial pressure] 30 mm[Hg] mm Hg [facility] pH (BldV) 7.209 [pH] Low 7.320 - 7.420 [facility] Base excess Calc (BldV) [Moles/Vol] 2.6 mmol/L -3.0 - 3.0 mmol/L [facility] CO2 (BldV) [Partial pressure] 88.4 mm[Hg] High [facility] CO2 [Moles/Vol] 35.9 mmol/L High 23.0 - 30.0 mmol/L [facility] HCO3 (Bld) [Moles/Vol] 33.2 mmol/L High 21.0 - 30.0 mmol/L [facility] Oxygen (BldV) [Partial pressure] 60.9 mm[Hg] mm Hg [facility] pH (BldV) 7.193 [pH] Low 7.320 - 7.420 [facility] Lactate [Moles/Vol] 0.8 mmol/L 0.5 - 2. 2 mmol/L [facility] Laboratory - Chemistry and C hemistry - challengeOrdered By: Yeny Jorge on 01-12-2025 Base excess Calc (BldV) [Moles/Vol] 5.5 mmol/L High -3.0 - 3.0 mmol/L [facility] CO2 (BldV) [Partial pressure] 74.5 mm[Hg] High [facility] CO2 [Moles/Vol] 37.1 mmol/L High 23.0 - 30.0 mmol/L [facility] HCO3 (Bld) [Moles/Vol] 34.8 mmol/L High 21.0 - 30.0 mmol/L [facility] Oxygen (BldV) [Partial pressure] 51.2 mm[Hg] mm Hg [facility] pH (BldV) 7.287 [pH] Low 7.320 - 7.420 [facility] Laboratory - Drug toxicology on 01-12-2025 Acetaminophen [Mass/Vol] ug/mL Low 10. 0 - 30.0 ug/mL [facility] Salicylates [Mass/Vol] mg/dL Low 15.0 - 30.0 mg/dL [facility] Laboratory - Hematology and Cell countson 01-12-2025 Hemoglobin (Bld) [Mass/Vol] 12.1 g/dL 12.0 - 16.0 g/dl [facility] Hemoglobin (Bld) [Mass/Vol] 12.3 g/dL 12.0 - 16.0 g/dl [facility] Basophilic stippling LM Ql (Bld) Slight Abnormal (none) [facility] Basophils (Bld) [#/Vol] 0.1 10*3/uL 0.0 - 0.2 10*3/uL [facility] Basophils/100 WBC (Bld) 1 % 0 - 2 % [facility] Eosinophils (Bld) [#/Vol] 0.4 10*3/uL 0.0 - 0.5 10*3/uL [facility] Eosinophils/100 WBC (Bld) 3 % 0 - 6 % [facility] Lymphocytes (Bld) [#/Vol] 0.4 10*3/uL Low 1.0 - 4.3 10*3/uL [facility] Lymphocytes/100 WBC (Bld) 3 % Low 15 - 45 % [facility] Monocytes (Bld) [#/Vol] 0.7 10*3/uL 0.0 - 0.9 10*3/uL [facility] Monocytes/100 WBC (Bld) 5 % 5 - 13 % [facility] Neutrophils (Bld) [#/Vol] 12.1 10*3/uL High 1.8 - 7.5 10*3/uL [facility] Ovalocytes LM Ql (Bld) Slight Abnormal (none) [facility] Poikilocytosis LM Ql (Bld) Moderate Abnormal (none) [facility] Polychromasia LM Ql (Bld) Slight Abnormal (none) [facility] RBC morphology finding Nom (Bld) abnormal [facility] Segmented neutrophils/100 WBC (Bld) 88 % High 38 - 82 % [facility] Stomatocytes LM Ql (Bld) Marked Abnormal (none) [facility] Laboratory - Hematology and Cell countsOrdered By: Yeny Jorge on 01-12-2025 Hemoglobin (Bld) [Mass/Vol] 13.8 g/dL 12.0 - 16.0 g/dl [facility] Laboratory - Microbiology an d Antimicrobial susceptibilityOrdered By: Calvin Brown on 01-12-2025 L. pneumophila 1 Ag IA.rapid Ql (U) Not detected Not Detected [facility] Laboratory - Microbiology an d Antimicrobial susceptibilityon 01-12-2025 FLUAV RNA MILANA+probe Ql (Resp) Not detected Not Detected [facility] FLUBV RNA MILANA+probe Ql (Resp) Not detected Not Detected [facility] RSV RNA MILANA+probe Ql (Resp) Not detected Not Detected [facility] SARS-CoV-2 (COVID-19) RNA MILANA+probe Ql (Resp) Not detected Not Detected [facility] SARS-CoV-2 (COVID-19) RNA MILANA+probe Ql (Unsp spec) Methodology: real-time, RT-PCR The SARS-CoV-2, Flu A/B, and RSV Combo assay is intended for in vitro diagnostic use under the FDA Emergency Use Authorization (EUA). This test has not been FDA cleared or approved. In compliance with this authorization, please visit www.fda.gov/media/1424 35/download or www.[employer].gov/media/0074 36/download to access the applicable information sheets. [facility] MANUAL DIFFERENTIAL (CELLAVI MICHAEL)on 01-12-2025 BAND NEUTROPHILS TOTAL PER COUNTED LEUKOCYTES BY MANUAL COUNT Normal [facility] Comment on above: Performed By: #### L [id number], [id number] ####Smt Operator: HANS PAULSON ([phone])[facility] ([facility])[address] [place] [address] BASOPHILIC STIPPLING PRESENCE IN BLOOD BY LIGHT MICROSCOPY Slight Abnormal (none) [facility] Comment on above: Performed By: #### L [id number], [id number] ####Smt Operator: HANS PAULSON ([phone])[facility] ([facility])[address] BASOPHILS (10*3/UL) IN BLOOD-CELLAVISION 0.1 10*3/uL Normal 0.0-0.2 [facility] Comment on above: Performed By: #### L [id number], [id number] ####Smt Operator: HANS PAULSON ([phone])[facility] ([facility])[address] BASOPHILS TOTAL PER COUNTED LEUKOCYTES BY MANUAL COUNT 1 Normal [facility] Comment on above: Performed By: #### L [id number], [id number] ####Smt Operator: HANS PAULSON ([phone])[facility] ([facility])[address] [place] [address] [place] BASOPHILS/100 LEUKOCYTES IN BLOOD-CELLAVISION 1 % Normal 0-2 [facility] Comment on above: Performed By: #### L [id number], [id number] ####Smt Operator: HANS PAULSON ([phone])[facility] [place] ([facility])[address] [place] [address] [place] BLASTS TOTAL PER COUNTED LEUKOCYTES BY MANUAL COUNT [facility] Comment on above: Performed By: #### L [id number], [id number] ####Smt Operator: HANS ALCANTARESCOBAR ([phone])[facility] [place] ([facility])[address] [place] [address] [place] EOSINOPHILS (10*3/UL) IN BLOOD-CELLAVISION 0.4 10*3/uL Normal 0.0-0.5 [facility] Comment on above: Performed By: #### L [id number], [id number] ####Smt Operator: HANS PAULSON ([phone])[facility] ([facility])[address] [place] [address] [place] EOSINOPHILS TOTAL PER COUNTED LEUKOCYTES BY MANUAL COUNT 3 High 0-1 [facility] Comment on above: Performed By: #### L [id number], [id number] ####Smt Operator: HANS PAULSON ([phone])[facility] ([facility])[address] [place] [address] [place] EOSINOPHILS/100 LEUKOCYTES IN BLOOD-CELLAVISION 3 % Normal 0-6 [facility] Comment on above: Performed By: #### L [id number], [id number] ####Smt Operator: HANS PAULSON ([phone])[facility] [place] ([facility])[address] [place] [address] [place] LYMPHOCYTES (10*3/UL) IN BLOOD-CELLAVISION 0.4 10*3/uL Low 1.0-4.3 [facility] Comment on above: Performed By: #### L [id number], [id number] ####Smt Operator: HANS PAULSON ([phone])[facility] ([facility])[address] LYMPHOCYTES TOTAL PER COUNTED LEUKOCYTES BY MANUAL COUNT 3 Normal [facility] Comment on above: Performed By: #### L [id number], [id number] ####Smt Operator: HANS ALCANTARESCOBAR ([phone])[facility] [place] ([facility])[address] LYMPHOCYTES/100 LEUKOCYTES IN BLOOD-CELLAVISION 3 % Low 15-45 [facility] Comment on above: Performed By: #### L [id number], [id number] ####Smt Operator: HANS PAULSON ([phone])[facility] [place] ([facility])[address] METAMYELOCYTES TOTAL PER COUNTED LEUKOCYTES BY MANUAL COUNT [facility] Comment on above: Performed By: #### L [id number], [id number] ####Smt Operator: HANS PAULSON ([phone])[facility] [place] ([facility])[address] MONOCYTES (10*3/UL) IN BLOOD-CELLAVISION 0.7 10*3/uL Normal 0.0-0.9 [facility] Comment on above: Performed By: #### L [id number], [id number] ####Smt Operator: HANS PAULSON ([phone])[facility] [place] ([facility])[address] [place] [address] [place] MONOCYTES TOTAL PER COUNTED LEUKOCYTES BY MANUAL COUNT 5 [facility] Comment on above: Performed By: #### L [id number], [id number] ####Smt Operator: HANS PAULSON ([phone])[facility] [place] ([facility])[address] [place] [address] [place] MONOCYTES/100 LEUKOCYTES IN BLOOD-[place] 5 % Normal 5-13 [facility] Comment on above: Performed By: #### L [id number], [id number] ####Smt Operator: HANS PAULSON ([phone])[facility] ([facility])[address] [place] [address] [place] MYELOCYTES COUNTED BY MANUAL COUNT Normal [facility] Comment on above: Performed By: #### L [id number], [id number] ####Smt Operator: HANS PAULSON ([phone])[facility] ([facility])[address] [place] [address] [place] NEUTROPHILS TOTAL PER COUNTED LEUKOCYTES BY MANUAL COUNT 88 Normal [facility] Comment on above: Performed By: #### L [id number], [id number] ####Smt Operator: HANS PAULSON ([phone])[facility] ([facility])[address] [place] [address] [place] OVALOCYTES PRESENCE IN BLOOD BY LIGHT MICROSCOPY Slight Abnormal (none) [facility] Comment on above: Performed By: #### L [id number], [id number] ####Smt Operator: HANS PAULSON ([phone])[facility] ([facility])[address] [place] [address] [place] POIKILOCYTOSIS (PRESENCE) IN BLOOD BY LIGHT MICROSCOPY Moderate Abnormal (none) [facility] Comment on above: Performed By: #### L [id number], [id number] ####Smt Operator: HANS PAULSON ([phone])[facility] ([facility])[address] [place] [address] [place] POLYCHROMASIA IN BLOOD BY LIGHT MICROSCOPY Slight Abnormal (none) [facility] Comment on above: Performed By: #### L [id number], [id number] ####Smt Operator: HANS PAULSON ([phone])[facility] ([facility])[address] [place] [address] [place] PROMYELOCYTES TOTAL PER COUNTED LEUKOCYTES BY MANUAL COUNT Normal [facility] Comment on above: Performed By: #### L [id number], [id number] ####Smt Operator: HANS PAULSON ([phone])[facility] [place] ([facility])[address] [place] [address] [place] RBC MORPHOLOGY IN BLOOD abnormal Normal [facility] Comment on above: Performed By: #### L [id number], [id number] ####Smt Operator: HANS PAULSON ([phone])[facility] [place] ([facility])[address] SEGMENTED NEUTROPHILS (10*3/UL) IN BLOOD-CELLAVISION 12.1 10*3/uL High 1.8-7.5 [facility] Comment on above: Performed By: #### L [id number], [id number] ####Smt Operator: HANS PAULSON ([phone])[facility] [place] ([facility])[address] [place] [address] [place] SEGMENTED NEUTROPHILS/100 LEUKOCYTES-CE 88 % High 38-82 [facility] Comment on above: Performed By: #### L [id number], [id number] ####Smt Operator: HANS PAULSON ([phone])[facility] [place] ([facility])[address] [place] [address] [place] STOMATOCYTES IN BLOOD BY LIGHT MICROSCOPY Marked Abnormal (none) [facility] Comment on above: Performed By: #### L [id number], [id number] ####Smt Operator: HANS PAULSON ([phone])[facility] [place] ([facility])[address] UNCLASSIFIED CELLS TOTAL PER COUNTED LEUKOCYTES BY MANUAL COUNT [facility] Comment on above: Performed By: #### L [id number], [id number] ####Smt Operator: HANS PAULSON ([phone])[facility] [place] ([facility])[address] VARIANT LYMPHOCYTES TOTAL PER COUNTED LEUKOCYTES BY MANUAL COUNT [facility] Comment on above: Performed By: #### L [id number], [id number] ####Smt Operator: HANS PAULSON ([phone])[facility] [place] ([facility])[address] [place] [address] [place] MRSA BY PCRon 01-12-2025 MRSA BY PCR Normal [facility] Comment on above: Performed By: #### L [id number] ####Smt Operator: AMELIE ELIZABETH ([phone])[facility] ([facility])[address] [place] [address] [facility] MRSA DNA MILANA+probe Ql (Nose) on 01-12-2025 Interpretation and review of laboratory results Abnormal [facility] mecA gene Not detected Not Detected [facility] Staphylococcus aureus Detected Abnormal Not Detected S [facility] Methicillin-sensitiv e Staphylococcus aureus (MSSA) [...] modified and its performance characteristics determined by [facility]. The U. [place]. Food and Drug Administration has not approved or cleared this test; however, FDA clearance or approval is not currently required for clinical use. The results are not intended to be used as the sole means for clinical diagnosis or patient management decisions. [facility] NT PRO BNPon 01-12-2025 Natriuretic peptide B (Bld) [Mass/Vol] 181 pg/mL Normal <334 [facility] Comment on above: Result Comment: KYM [...] values. Performed By: #### L [id number], [id number], [id number], [id number] ####Smt Operator: HANS PAULSON ([phone])[facility] ([facility])[address] [place] [address] Natriuretic peptide B [Mass/ Vol]on 01-12-2025 Natriuretic peptide B (Bld) [Mass/Vol] 181 pg/mL NINF - 334 pg/mL [facility] [email or web address] In patients with suspected acute HF, NT-proBNP [...] may not correlate well with previous values. [facility] No Panel InformationOrdered By: Calvin Brown on 01-12-2025 Interpretation and review of laboratory results Normal [facility] Streptococcus pneumoniae Ag Not detected Not Detected [facility] Methodology: Lateral flow enzyme immunoassay This assay is approved for detection of antigens to Streptococcus pneumoniae and Legionella pneumophila serogroup 1; however, other L. pneumophila serogroups may also be detected. [facility] [email or web address] No Panel InformationOrdered By: Ana Maria Wood on 01-12-2025 ETHYL GLUCURONIDE, URINE Negative Negative [facility] Ethyl Glucuronide allen s been screened by [...] been determined by the clinical laboratories of [facility]. [facility] No Panel Informationon 01-12 Extra Tube Hold for add-ons. [facility] Comment on above: Auto resulted. [facility] 4h Troponin HS (Serial 3rd Troponin) 8 ng/L NINF - 14 ng/L [facility] Comment on above: Rising or falling tr oponin delta below 2 ng/L as compared to 2h troponin value suggests that acute cardiac injury is unlikely. Interpretation and review of laboratory results Normal [facility] Amount Of Oxygen 60 [facility] Interpretation and review of laboratory results Abnormal [facility] Source Of Oxygen Non-Invasive Ventilator [facility] Assessment of oxygenation is best done with an arterial blood gas determination. Reference ranges for pO2, bicarbonate, and base excess are for mixed venous blood. Specimens drawn from a peripheral vein will often have higher values. [facility] Interpretation and review of laboratory results Abnormal [facility] 2h Troponin HS (Serial 2nd Troponin) 9 ng/L NINF - 14 ng/L [facility] Comment on above: 2h troponin (2nd tro ponin) samples collected between 1h 40 min and 2h and 20 min of the baseline collection time can be utilized to interpret delta troponins as per [facility] algorithms. Samples collected outside this timeframe need to be interpreted clinically. Rising or falling troponin delta between 2 15 ng/L as compared to baseline value requires a 3rd serial troponin Interpretation and review of laboratory results Normal [facility] Amount Of Oxygen 60% [facility] alth Interpretation and review of laboratory results Abnormal [facility] Source Of Oxygen BiPAP [facility] alth Assessment of oxygenation is best done with an arterial blood gas determination. Reference ranges for pO2, bicarbonate, and base excess are for mixed venous blood. Specimens drawn from a peripheral vein will often have higher values. [facility] Atypical Lymphocytes Manual [facility] Bands Manual [facility] Basophils Manual 1 [facility] alth Blasts Manual [facility] Healt h Eosinophils Manual 3 High 0 - 1 [facility] Interpretation and review of laboratory results Abnormal [facility] Lymphocytes Manual 3 [facility] Metamyelocytes Manual [facility] Monocytes Manual 5 [facility] alth Myelocytes Manual [facility] ealth Neutrophils Manual 88 [facility] Promyelocytes Manual [facility] Unclassified Cells, Manual [facility] Interpretation and review of laboratory results Normal [facility] Troponin HS Serial Baseline 13 ng/L NINF - 14 ng/L [facility] Comment on above: In individuals prese nting with symptoms > 2h, a baseline troponin <= 5 ng/L suggests acute cardiac injury is unlikely and further serial testing is generally not indicated. [facility] Interpretation and review of laboratory results Normal [facility] P [place] 45 degrees [facility] AR Interval 155 ms [facility] QRS [place] -38 degrees [facility] QRSD Interval [address] 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 Reference ranges for pO2, bicarbonate, and base excess are for mixed venous blood. Specimens drawn from a peripheral vein will often have higher values. [facility] PROCALCITONIN TESTon 025 PROCALCITONIN 0.21 ng/mL High <0.07 [facility] Comment on above: Result Comment: KYM [place]more COMMENTS:PCT <0.50 = Low risk of severe sepsis and/or septic shock.PCT >2.00 = High risk of severe sepsis and/or septic shock. Performed By: #### L [id number], [id number], [id number], [id number] ####Smt Operator: HANS PAULSON ([phone])[facility] [place] ([facility])[address] [place] [address] Procalcitonin [Mass/Vol]on Interpretation and review of laboratory results Abnormal [facility] PCT <0.50 = Low risk of severe sepsis and/or septic shock. PCT >2.00 = High risk of severe sepsis and/or septic shock. [facility] RESPIRATORY PATHOGENS PANEL BY PCRon 01-12-2025 RESPIRATORY PATHOGENS PANEL BY PCR Normal [facility] Comment on above: Performed By: #### L [id number] ####Smt Operator: AMELIE ELIZABETH ([phone])[facility] ([facility])[address] [place] [address] Respiratory pathogens DNA an d RNA panel MILANA+non-probe (Nph)on 01-12-2025 Adenovirus Not detected Not Detected [facility] B. pertussis toxin promoter region MILANA+non-probe Ql (Nph) Not detected Not Detected [facility] Bordetella parapertussis Not detected Not Detec tommy [facility] C. pneumoniae DNA MILANA+non-probe Ql (Lower resp) Not detected Not Detected [facility] Coronavirus 229E Not detected Not Detected [facility] Coronavirus HKU1 Not detected Not Detected [facility] Coronavirus NL63 Not detected Not Detected [facility] Coronavirus OC43 Not detected Not Detected [facility] FLUAV RNA MILANA+non-probe Ql (Nph) Not detected Not Detected [facility] FLUBV RNA MILANA+non-probe Ql (Nph) Not detected Not Detected [facility] Human Metapneumovirus Not detected Not Detected [facility] Human Rhinovirus/Enterovirus Not detected Not Detected [facility] Interpretation and review of laboratory results Normal [facility] Mycoplasma pneumoniae Not detected Not Detected [facility] Parainfluenza 1 Not detected Not Detected [facility] Parainfluenza 2 Not detected Not Detected [facility] Parainfluenza 3 Not detected Not Detected [facility] Parainfluenza 4 Not detected Not Detected [facility] Respiratory Syncytial Virus Not detected Not Detected [facility] SARS-CoV-2 (COVID-19) RNA MILANA+non-probe Ql (Nph) Not detected Not Detected [facility] Methodology: Multipl ex PCR [facility] SALICYLATEon 01-12-2025 SALICYLATES <5.0 Low 15.0-30.0 [facility] Comment on above: Performed By: #### L [id number], LAB43, LAB34, [id number] ####Smt Operator: HANS WALDROPKimESCOBAR ([phone])[facility] ([facility])[address] [place] [address] SARS-COV-2, FLU A/B, AND RSV COMBOon 01-12-2025 SARS-CoV-2 (COVID-19) RNA MILANA+probe Ql (Unsp spec) Normal [facility] Comment on above: Performed By: #### L [id number] ####Smt Operator: HANS WALDROPKimESCOBAR ([phone])[facility] ([facility])[address] [place] [address] Vital signson 01-12-2025 Oxygen saturation in Venous blood 50.1 % [facility] Oxygen saturation in Venous blood 85.8 % [facility] Heart rate 110 /min bpm [facility] Vital signsOrdered By: Carla Jorge on 01-12-2025 Oxygen saturation in Venous blood 82.4 % [facility] XR Chest Single viewon 01-12 No acute cardiopulmonary abnormality is identified. Report Dictated on Electronically Signed By: Melisa Vallejo MD Electronically Signed Date/Time: 01/12/2025 10:01 AM [facility] Patient Name: GONZALO DELUCA : 1955 [facility]#: [id number] Exam Date/Time: 01/12/2025 09:50 Procedure: XR CHEST [...] catheter tip projects over the upper SVC. [facility] Melisa Vallejo M D - 01/12/2025 Patient Name: GONZALO DELUCA : 1955 [facility]#: [id number] Exam Date/Time: 01/12/2025 09:50 Procedure: XR CHEST [...] Electronically Signed Date/Time: 01/12/2025 10:01 AM EDT [facility] Radiology Study observation (narrative) [facility] XR Chest Single viewOrdered By: Melisa Vallejo on 01-12-2025 [facility] Work Phone: 36on 12-28-2024 36 Normal [facility] Progress Noteon 12-28-2024 Progress Note Normal [facility] 36on 12-18-2024 36 We have been unable to reach your patient to schedule their testing. Test Name: Complete PFT pre and post bronchodilator with FENO Patient canceled 10/24/24 and 12/04/24 Normal [facility] Anion gap in Serum or Plasma Ordered By: Jameson Corral on 12-12-2024 Anion gap [Moles/Vol] 9 mmol/L 5-15 [facility] BUN/creatinine ratioOrdered By: Jameson Corral on 12-12-2024 Urea nitrogen/Creatinine [Mass ratio] 22.1 mg/mg High 10-20 [facility] Basic Metabolic Profile (BMP )on 12-12-2024 BUN/CRE 22.1 RATIO High 10-20 [facility] Comment on above: Order Comment: 311-1 Performed By: #### L 500.2500, L100.0500 #### [facility] [address] [place], [address] Calcium [Mass/Vol] 8.6 mg/dL Normal 7.6-11.0 [facility] Comment on above: Order Comment: 311-1 Performed By: #### L 500.2500, L100.0500 #### [facility] [address] [place], [address] Chloride [Moles/Vol] 98 mmol/L Normal 98-108 [facility] Comment on above: Order Comment: 311-1 Performed By: #### L 500.2500, L100.0500 #### [facility] [address] [place], [address] CO2 [Moles/Vol] 30.3 mmol/L Normal 21.0-32.0 [facility] Comment on above: Order Comment: 311-1 Performed By: #### L 500.2500, L100.0500 #### [facility] [address] [place], [address] Creatinine [Mass/Vol] 0.60 mg/dL Low 0.70-1.20 [facility] Comment on above: Order Comment: 311-1 Performed By: #### L 500.2500, L100.0500 #### [facility] [address] [place], [address] GAP 9 Normal 5-15 [facility] Comment on above: Order Comment: 311-1 Performed By: #### L 500.2500, L100.0500 #### [facility] [address] [place], [address] GFR/1.73 sq M.predicted among non-blacks MDRD (S/P/Bld) [Vol rate/Area] 98 mL/min/{1.73_m2} Normal >60 [facility] Comment on above: Order Comment: 311-1 Result Comment: mL/m in/1.73m2 CKD-EPI Creatinine Equation (2020) Performed By: #### L 500.2500, L100.0500 #### [facility] [address] [place], [address] Glucose [Mass/Vol] 99 mg/dL Normal 70-99 [facility] Comment on above: Order Comment: 311-1 Performed By: #### L 500.2500, L100.0500 #### [facility] [address] [place], [address] Potassium [Moles/Vol] 4.3 mmol/L Normal 3.3-5.1 [facility] Comment on above: Order Comment: 311-1 Performed By: #### L 500.2500, L100.0500 #### [facility] [address] [place], [address] Sodium [Moles/Vol] 137 mmol/L Normal 133-145 [facility] Comment on above: Order Comment: 311-1 Performed By: #### L 500.2500, L100.0500 #### [facility] [address] [place], [address] Urea nitrogen [Mass/Vol] 13 mg/dL Normal 4-19 [facility] Comment on above: Order Comment: 311-1 Performed By: #### L 500.2500, L100.0500 #### [facility] [address] [place], [address] CBC-Complete Blood Cnt No Di ffon 12-12-2024 Erythrocyte distribution width (RBC) [Ratio] 13.3 % Normal 11.6-14.6 [facility] Comment on above: Order Comment: 311-1 Performed By: #### L 500.2500, L100.0500 #### [facility] [address] [place], [address] Hematocrit (Bld) [Volume fraction] 38.6 % Normal 37-47 [facility] Comment on above: Order Comment: 311-1 Performed By: #### L 500.2500, L100.0500 #### [facility] [address] [place], [address] Hemoglobin (Bld) [Mass/Vol] 11.8 g/dL Low 12.0-15.0 [facility] Comment on above: Order Comment: 311-1 Performed By: #### L 500.2500, L100.0500 #### [facility] [address] [place], [address] MCH (RBC) [Entitic mass] 29.3 pg Normal 27.0-32.0 [facility] Comment on above: Order Comment: 311-1 Performed By: #### L 500.2500, L100.0500 #### [facility] [address] [place], [address] MCHC (RBC) [Mass/Vol] 30.6 g/dL Low 32-36 [facility] Comment on above: Order Comment: 311-1 Performed By: #### L 500.2500, L100.0500 #### [facility] [address] [place], [address] MCV (RBC) [Entitic vol] 95.8 fL Normal 81-99 [facility] Comment on above: Order Comment: 311-1 Performed By: #### L 500.2500, L100.0500 #### [facility] [address] [place], [address] Platelet mean volume (Bld) [Entitic vol] 10.4 fL Normal 6.2-12.0 [facility] Comment on above: Order Comment: 311-1 Performed By: #### L 500.2500, L100.0500 #### [facility] [address] [place], [address] Platelets (Bld) [#/Vol] 189 10*3/uL Normal 150-450 [facility] Comment on above: Order Comment: 311-1 Performed By: #### L 500.2500, L100.0500 #### [facility] [address] [place], [address] RBC (Bld) [#/Vol] 4.03 10*6/uL Low 4.2-5.4 [facility] Comment on above: Order Comment: 311-1 Performed By: #### L 500.2500, L100.0500 #### [facility] [address] [place], [address] RDW SD 47.2 fl High 35.1-43.9 [facility] Comment on above: Order Comment: 311-1 Performed By: #### L 500.2500, L100.0500 #### [facility] [address] [place], [address] WBC (Bld) [#/Vol] 7.9 10*3/uL Normal 4.4-11.0 [facility] Comment on above: Order Comment: 311-1 Performed By: #### L 500.2500, L100.0500 #### [facility] [address] [place], [address] Carbon dioxide, total [Moles /volume] in Central venous bloodOrdered By: Jameson Corral on 12-12-2024 CO2 [Moles/Vol] 30.3 mmol/L 21.0-32.0 [facility] Chloride assayOrdered By: Zack Jeong on 12-12-2024 Chloride [Moles/Vol] 98 mmol/L 98-108 [facility] Erythrocyte distribution wid th ratioOrdered By: Jameson Corral on 12-12-2024 Erythrocyte distribution width (RBC) [Ratio] 13.3 % 11.6-14.6 [facility] Erythrocyte distribution wid th standard deviationOrdered By: Jameson Corral on 12-12-2024 Erythrocyte distribution width (RBC) [Ratio] 47.2 fl High 35.1-43.9 [facility] Glomerular filtration rate ( GFR) estimation/1.73 sq m using serum, plasma, or whole bOrdered By: Jameson Corral on 12-12-2024 GFR/1.73 sq M.predicted among non-blacks MDRD (S/P/Bld) [Vol rate/Area] 98 mL/min/{1.73_m2} >60 [facility] Comment on above: mL/min/1.73m2 CKD-EP I Creatinine Equation (2020) Hematocrit Auto (Bld) [Volum e fraction]Ordered By: Jameson Corral on 12-12-2024 Hematocrit (Bld) [Volume fraction] 38.6 % 37-47 [facility] Hemoglobin measurementOrdere d By: Jameson Corral on 12-12-2024 Hemoglobin (Bld) [Mass/Vol] 11.8 g/dL Low 12.0-15.0 [facility] MCV (mean corpuscular volume ) determinationOrdered By: Jameson Corral on 12-12-2024 MCV (RBC) [Entitic vol] 95.8 fL 81-99 [facility] Mean corpuscular hemoglobin (MCH) determinationOrdered By: Jameson Corral on 12-12-2024 MCH (RBC) [Entitic mass] 29.3 pg 27.0-32.0 [facility] Mean corpuscular hemoglobin concentration (MCHC) determinationOrdered By: Jameson Corral on 12-12-2024 MCHC (RBC) [Mass/Vol] 30.6 g/dL Low 32-36 [facility] Mean platelet volume determi nationOrdered By: Jameson Corral on 12-12-2024 Platelet mean volume (Bld) [Entitic vol] 10.4 fL 6.2-12.0 [facility] Platelet countOrdered By: Zack Jeong on 12-12-2024 Platelets (Bld) [#/Vol] 189 10*3/uL 150-450 [facility] Potassium measurement (mass/ volume)Ordered By: Jameson Corral on 12-12-2024 Potassium (Unsp spec) [Mass/Vol] 4.3 mmol/L 3.3-5.1 [facility] RBC Auto (Bld) [#/Vol]Ordere d By: Jameson Corral on 12-12-2024 RBC (Bld) [#/Vol] 4.03 10*6/uL Low 4.2-5.4 [facility] Serum creatinine measurement (mass/volume)Ordered By: Jameson Corral on 12-12-2024 Creatinine [Mass/Vol] 0.60 mg/dL Low 0.70-1.20 [facility] Serum glucose measurement (m ass/volume)Ordered By: Jameson Corral on 12-12-2024 Glucose [Mass/Vol] 99 mg/dL 70-99 [facility] Serum or plasma calcium nessa urement (mass/volume)Ordered By: Jameson Corral on 12-12-2024 Calcium [Mass/Vol] 8.6 mg/dL 7.6-11.0 [facility] Serum or plasma urea nitroge n measurement (mass/volume)Ordered By: Jameson Corral on 12-12-2024 Urea nitrogen [Mass/Vol] 13 mg/dL 4-19 [facility] Sodium levelOrdered By: Fabian Corral on 12-12-2024 Sodium [Moles/Vol] 137 mmol/L 133-145 [facility] White blood cell (WBC) count Ordered By: Jameson Corral on 12-12-2024 WBC (Bld) [#/Vol] 7.9 10*3/uL 4.4-11.[address] [facility] [address] CHEST WO IV CONTRASTon CT CHEST WO IV CONTRAST Normal S [facility] Anion gap in Serum or Plasma Ordered By: Jameson Corral on 10-01-2024 Anion gap [Moles/Vol] 6 mmol/L 5- [facility] BUN/creatinine ratioOrdered By: Jameson Corral on 10-01-2024 Urea nitrogen/Creatinine [Mass ratio] 33.1 mg/mg High 01-07 [facility] Basic Metabolic Profile (BMP )on 10-01-2024 BUN/CRE 33.1 RATIO High 01-07 [facility] Comment on above: Order Comment: 311.1 Performed By: #### L 400.0001, #### [facility] [address] [place], [address] Calcium [Mass/Vol] 9.3 mg/dL Normal 7.6-11.0 [facility] Comment on above: Order Comment: 311.1 Performed By: #### L 400.0001, #### [facility] [address] [place], [address] Chloride [Moles/Vol] 101 mmol/L Normal 98-108 [facility] Comment on above: Order Comment: 311.1 Performed By: #### L 400.0001, #### [facility] [address] [place], [address] CO2 [Moles/Vol] 34.9 mmol/L High 21.0-32.0 [facility] Comment on above: Order Comment: 311.1 Performed By: #### L 400.0001, #### [facility] [address] [place], [address] Creatinine [Mass/Vol] 0.54 mg/dL Low 0.70-1.20 [facility] Comment on above: Order Comment: 311.1 Performed By: #### L 400.0001, #### [facility] [address] [place], [address] GAP 6 Normal 5-15 [facility] Comment on above: Order Comment: 311.1 Performed By: #### L 400.0001, #### [facility] [address] [place], [address] GFR/1.73 sq M.predicted among non-blacks MDRD (S/P/Bld) [Vol rate/Area] 101 mL/min/{1.73_m2} Normal >60 [facility] Comment on above: Order Comment: 311.1 Result Comment: mL/m in/1.73m2 CKD-EPI Creatinine Equation (2020) Performed By: #### L 400.0001, #### [facility] [address] [place], [address] Glucose [Mass/Vol] 80 mg/dL Normal 70-99 [facility] Comment on above: Order Comment: 311.1 Performed By: #### L 400.0001, #### [facility] [address] [place], [address] Potassium [Moles/Vol] 4.6 mmol/L Normal 3.3-5.1 [facility] Comment on above: Order Comment: 311.1 Performed By: #### L 400.0001, #### [facility] [address] [place], [address] Sodium [Moles/Vol] 142 mmol/L Normal 133-145 [facility] Comment on above: Order Comment: 311.1 Performed By: #### L 400.0001, #### [facility] [address] [place], [address] Urea nitrogen [Mass/Vol] 18 mg/dL Normal 4-19 [facility] Comment on above: Order Comment: 311.1 Performed By: #### L 400.0001, #### [facility] [address] [place], [address] CBC-Complete Blood Cnt No Di ffon 10-01-2024 Erythrocyte distribution width (RBC) [Ratio] 13.2 % Normal 11.6-14.6 [facility] Comment on above: Order Comment: 311.1 Performed By: #### L 400.0001, #### [facility] [address] [place], [address] Hematocrit (Bld) [Volume fraction] 37.6 % Normal 37-47 [facility] Comment on above: Order Comment: 311.1 Performed By: #### L 400.0001, #### [facility] [address] [place], [address] Hemoglobin (Bld) [Mass/Vol] 11.4 g/dL Low 12.0-15.0 [facility] Comment on above: Order Comment: 311.1 Performed By: #### L 400.0001, #### [facility] [address] [place], [address] MCH (RBC) [Entitic mass] 30.2 pg Normal 27.0-32.0 [facility] Comment on above: Order Comment: 311.1 Performed By: #### L 400.0001, #### [facility] [address] [place], [address] MCHC (RBC) [Mass/Vol] 30.3 g/dL Low 32-36 [facility] Comment on above: Order Comment: 311.1 Performed By: #### L 400.0001, #### [facility] [address] [place], [address] MCV (RBC) [Entitic vol] 99.7 fL High 81-99 [facility] Comment on above: Order Comment: 311.1 Performed By: #### L 400.0001, #### [facility] [address] [place], [address] Platelet mean volume (Bld) [Entitic vol] 9.8 fL Normal 6.2-12.0 [facility] Comment on above: Order Comment: 311.1 Performed By: #### L 400.0001, #### [facility] [address] [place], [address] Platelets (Bld) [#/Vol] 248 10*3/uL Normal 150-450 [facility] Comment on above: Order Comment: 311.1 Performed By: #### L 400.0001, .2199 #### [facility] [address] [place], [address] RBC (Bld) [#/Vol] 3.77 10*6/uL Low 4.2-5.4 [facility] Comment on above: Order Comment: 311.1 Performed By: #### L 400.0001, .2199 #### [facility] [address] [place], [address] RDW SD 48.3 fl High 35.1-43.9 [facility] Comment on above: Order Comment: 311.1 Performed By: #### L 400.0001, .2199 #### [facility] [address] [place], [address] WBC (Bld) [#/Vol] 6.3 10*3/uL Normal 4.4-11.0 [facility] Comment on above: Order Comment: 311.1 Performed By: #### L 400.0001, #### [facility] [address] [place], [address] Carbon dioxide, total [Moles /volume] in Central venous bloodOrdered By: Jameson Corral on 10-01-2024 CO2 [Moles/Vol] 34.9 mmol/L High 21.0-32.0 [facility] Chloride assayOrdered By: Zack Jeong on 10-01-2024 Chloride [Moles/Vol] 101 mmol/L 98-108 [facility] Erythrocyte distribution wid th ratioOrdered By: Jameson Corral on 10-01-2024 Erythrocyte distribution width (RBC) [Ratio] 13.2 % 11.6-14.6 [facility] Erythrocyte distribution wid th standard deviationOrdered By: Jameson Corral on 10-01-2024 Erythrocyte distribution width (RBC) [Ratio] 48.3 fl High 35.1-43.9 [facility] Glomerular filtration rate ( GFR) estimation/1.73 sq m using serum, plasma, or whole bOrdered By: Jameson Corral on 10-01-2024 GFR/1.73 sq M.predicted among non-blacks MDRD (S/P/Bld) [Vol rate/Area] 101 mL/min/{1.73_m2} >60 [facility] Comment on above: mL/min/1.73m2 CKD-EP I Creatinine Equation (2020) Hematocrit Auto (Bld) [Volum e fraction]Ordered By: Jameson Corral on 10-01-2024 Hematocrit (Bld) [Volume fraction] 37.6 % 37-47 [facility] Hemoglobin measurementOrdere d By: Jameson Corral on 10-01-2024 Hemoglobin (Bld) [Mass/Vol] 11.4 g/dL Low 12.0-15.0 [facility] MCV (mean corpuscular volume ) determinationOrdered By: Jameson Corral on 10-01-2024 MCV (RBC) [Entitic vol] 99.7 fL High 81-99 [facility] Mean corpuscular hemoglobin (MCH) determinationOrdered By: Jameson Corral on 10-01-2024 MCH (RBC) [Entitic mass] 30.2 pg 27.0-32.0 [facility] Mean corpuscular hemoglobin concentration (MCHC) determinationOrdered By: Jameson Corral on 10-01-2024 MCHC (RBC) [Mass/Vol] 30.3 g/dL Low 32-36 [facility] Mean platelet volume determi nationOrdered By: Jameson Corral on 10-01-2024 Platelet mean volume (Bld) [Entitic vol] 9.8 fL 6.2-12.0 [facility] Platelet countOrdered By: Zack Jeong on 10-01-2024 Platelets (Bld) [#/Vol] 248 10*3/uL 150-450 [facility] Potassium measurement (mass/ volume)Ordered By: Jameson Corral on 10-01-2024 Potassium (Unsp spec) [Mass/Vol] 4.6 mmol/L 3.3-5.1 [facility] RBC Auto (Bld) [#/Vol]Ordere d By: Jameson Corral on 10-01-2024 RBC (Bld) [#/Vol] 3.77 10*6/uL Low 4.2-5.4 [facility] Serum creatinine measurement (mass/volume)Ordered By: Jameson Corral on 10-01-2024 Creatinine [Mass/Vol] 0.54 mg/dL Low 0.70-1.20 [facility] Serum glucose measurement (m ass/volume)Ordered By: Jameson Corral on 10-01-2024 Glucose [Mass/Vol] 80 mg/dL 70-99 [facility] Serum or plasma calcium nessa urement (mass/volume)Ordered By: Jameson Corral on 10-01-2024 Calcium [Mass/Vol] 9.3 mg/dL 7.6-11.0 [facility] Serum or plasma urea nitroge n measurement (mass/volume)Ordered By: Jameson Corral on 10-01-2024 Urea nitrogen [Mass/Vol] 18 mg/dL 4-19 [facility] Sodium levelOrdered By: Fabian Corral on 10-01-2024 Sodium [Moles/Vol] 142 mmol/L 133-145 [facility] White blood cell (WBC) count Ordered By: Jameson Corral on 10-01-2024 WBC (Bld) [#/Vol] 6.3 10*3/uL 4.4-11.0 [facility] Urine Cultureon 09-20-2024 [facility] UNKNOWN METHOD OF COLLECTION Mixed Gram Pos Gram Neg Org [place] Count 11,000-25,000 MIXC Mixed contaminants. Submit a new specimen if indicated. Normal [facility] Comment on above: Performed By: #### L 400.0001, M1 #### [facility] [address] [place], [address] Urinalysis, Completeon 09-18 CA OX CRYSTAL 1+ /hpf Normal [facility] Comment on above: Order Comment: UNKNO WN METHOD OF COLLECTION CLEAN CATCH Performed By: #### L 400.0001, M1.0 #### [facility] [address] [place], [address] BACTERIA 0 SEEN Normal None Seen [facility] Comment on above: Order Comment: UNKNO WN METHOD OF COLLECTION CLEAN CATCH Performed By: #### L 400.0001, M100.2200 #### [facility] [address] [place], [address] EPI,SQUAMOUS 0 SEEN Normal 5-10 [facility] Comment on above: Order Comment: UNKNO WN METHOD OF COLLECTION CLEAN CATCH Performed By: #### L 400.0001, M100.2200 #### [facility] [address] [place], [address] Mucus Ql (Urine sed) 0 SEEN Normal [facility] Comment on above: Order Comment: UNKNO WN METHOD OF COLLECTION CLEAN CATCH Performed By: #### L 400.0001, M100.2200 #### [facility] [address] [place], [address] RBC 0 SEEN Normal 0-5 [facility] Comment on above: Order Comment: UNKNO WN METHOD OF COLLECTION CLEAN CATCH Performed By: #### L 400.0001, M100.0 #### [facility] [address] [place], [address] WBC 0 SEEN Normal 0-5 [facility] Comment on above: Order Comment: UNKNO WN METHOD OF COLLECTION CLEAN CATCH Performed By: #### L 400.0001, M100.0 #### [facility] [address] [place], [address] Anion gap in Serum or Plasma Ordered By: Jameson Corral on 09-17-2024 Anion gap [Moles/Vol] 7 mmol/L 5-15 [facility] BUN/creatinine ratioOrdered By: Jameson Corral on 09-17-2024 Urea nitrogen/Creatinine [Mass ratio] 26.7 mg/mg High - [facility] Basic Metabolic Profile (BMP )on 09-17-2024 BUN/CRE 26.7 RATIO High 01-07 [facility] Comment on above: Order Comment: 311-2 Performed By: #### L 100.0500, L500.2500 #### [facility] [address] [place], [address] Calcium [Mass/Vol] 8.9 mg/dL Normal 7.6-11.0 [facility] Comment on above: Order Comment: 311-2 Performed By: #### L 100.0500, L500.2500 #### [facility] [address] [place], [address] Chloride [Moles/Vol] 103 mmol/L Normal 98-108 [facility] Comment on above: Order Comment: 311-2 Performed By: #### L 100.0500, L500.2500 #### [facility] [address] [place], [address] CO2 [Moles/Vol] 32.9 mmol/L High 21.0-32.0 [facility] Comment on above: Order Comment: 311-2 Performed By: #### L 100.0500, L500.2500 #### [facility] [address] [place], [address] Creatinine [Mass/Vol] 0.56 mg/dL Low 0.70-1.20 [facility] Comment on above: Order Comment: 311-2 Performed By: #### L 100.0500, L500.2500 #### [facility] [address] [place], [address] GAP 7 Normal 5-15 [facility] Comment on above: Order Comment: 311-2 Performed By: #### L 100.0500, L500.2500 #### [facility] [address] [place], [address] GFR/1.73 sq M.predicted among non-blacks MDRD (S/P/Bld) [Vol rate/Area] 100 mL/min/{1.73_m2} Normal >60 [facility] Comment on above: Order Comment: 311-2 Result Comment: mL/m in/1.73m2 CKD-EPI Creatinine Equation (2020) Performed By: #### L 100.0500, L500.2500 #### [facility] [address] [place], [address] Glucose [Mass/Vol] 80 mg/dL Normal 70-99 [facility] Comment on above: Order Comment: 311-2 Performed By: #### L 100.0500, L500.2500 #### [facility] [address] [place], [address] Potassium [Moles/Vol] 4.1 mmol/L Normal 3.3-5.1 [facility] Comment on above: Order Comment: 311-2 Performed By: #### L 100.0500, L500.2500 #### [facility] [address] [place], [address] Sodium [Moles/Vol] 143 mmol/L Normal 133-145 [facility] Comment on above: Order Comment: 311-2 Performed By: #### L 100.0500, L500.2500 #### [facility] [address] [place], [address] Urea nitrogen [Mass/Vol] 15 mg/dL Normal 4-19 [facility] Comment on above: Order Comment: 311-2 Performed By: #### L 100.0500, L500.2500 #### [facility] [address] [place], [address] Bilirubin Test strip Ql (U)O rdered By: Jameson Corral on 09-17-2024 Bilirubin Ql (U) Negative Negative [facility] CBC-Complete Blood Cnt No Di ffon 09-17-2024 Erythrocyte distribution width (RBC) [Ratio] 13.7 % Normal 11.6-14.6 [facility] Comment on above: Order Comment: 311-2 Performed By: #### L 100.0500, L500.2500 #### [facility] [address] [place], [address] Hematocrit (Bld) [Volume fraction] 35.4 % Low 37-47 [facility] Comment on above: Order Comment: 311-2 Performed By: #### L 100.0500, L500.2500 #### [facility] [address] [place], [address] Hemoglobin (Bld) [Mass/Vol] 10.7 g/dL Low 12.0-15.0 [facility] Comment on above: Order Comment: 311-2 Performed By: #### L 100.0500, L500.2500 #### [facility] [address] [place], [address] MCH (RBC) [Entitic mass] 30.9 pg Normal 27.0-32.0 [facility] Comment on above: Order Comment: 311-2 Performed By: #### L 100.0500, L500.2500 #### [facility] [address] [place], [address] MCHC (RBC) [Mass/Vol] 30.2 g/dL Low 32-36 [facility] Comment on above: Order Comment: 311-2 Performed By: #### L 100.0500, L500.2500 #### [facility] [address] [place], [address] MCV (RBC) [Entitic vol] 102.3 fL High 81-99 [facility] Comment on above: Order Comment: 311-2 Performed By: #### L 100.0500, L500.2500 #### [facility] [address] [place], [address] Platelet mean volume (Bld) [Entitic vol] 9.9 fL Normal 6.2-12.0 [facility] Comment on above: Order Comment: 311-2 Performed By: #### L 100.0500, L500.2500 #### [facility] [address] [place], [address] Platelets (Bld) [#/Vol] 246 10*3/uL Normal 150-450 [facility] Comment on above: Order Comment: 311-2 Performed By: #### L 100.0500, L500.2500 #### [facility] [address] [place], [address] RBC (Bld) [#/Vol] 3.46 10*6/uL Low 4.2-5.4 [facility] Comment on above: Order Comment: 311-2 Performed By: #### L 100.0500, L500.2500 #### [facility] [address] [place], [address] RDW SD 52.1 fl High 35.1-43.9 [facility] Comment on above: Order Comment: 311-2 Performed By: #### L 100.0500, L500.2500 #### [facility] [address] [place], [address] WBC (Bld) [#/Vol] 8.0 10*3/uL Normal 4.4-11.0 [facility] Comment on above: Order Comment: 311-2 Performed By: #### L 100.0500, L500.2500 #### [facility] [address] [place], [address] Calcium oxalate crystals det ection in urine sediment by light microscopyOrdered By: Jameson Corral on 09-17-2024 Calcium oxalate crystals LM Ql (Urine sed) 1+ /hpf [facility] Carbon dioxide, total [Moles /volume] in Central venous bloodOrdered By: Jameson Corral on 09-17-2024 CO2 [Moles/Vol] 32.9 mmol/L High 21.0-32.0 [facility] Chloride assayOrdered By: Zack Jeong on 09-17-2024 Chloride [Moles/Vol] 103 mmol/L 98-108 [facility] Erythrocyte distribution wid th ratioOrdered By: Jameson Corral on 09-17-2024 Erythrocyte distribution width (RBC) [Ratio] 13.7 % 11.6-14.6 [facility] Erythrocyte distribution wid th standard deviationOrdered By: Jameson Corral on 09-17-2024 Erythrocyte distribution width (RBC) [Ratio] 52.1 fl High 35.1-43.9 [facility] Glomerular filtration rate ( GFR) estimation/1.73 sq m using serum, plasma, or whole bOrdered By: Jameson Corral on 09-17-2024 GFR/1.73 sq M.predicted among non-blacks MDRD (S/P/Bld) [Vol rate/Area] 100 mL/min/{1.73_m2} >60 [facility] Comment on above: mL/min/1.73m2 CKD-EP I Creatinine Equation (2020) Hematocrit Auto (Bld) [Volum e fraction]Ordered By: Jameson Corral on 09-17-2024 Hematocrit (Bld) [Volume fraction] 35.4 % Low 37-47 [facility] Hemoglobin measurementOrdere d By: Jameson Corral on 09-17-2024 Hemoglobin (Bld) [Mass/Vol] 10.7 g/dL Low 12.0-15.0 [facility] Ketones Test strip Ql (U)Ord ered By: Jameson Corral on 09-17-2024 Ketones Ql (U) Negative Negative [facility] MCV (mean corpuscular volume ) determinationOrdered By: Jameson Corral on 09-17-2024 MCV (RBC) [Entitic vol] 102.3 fL High 81-99 [facility] Mean corpuscular hemoglobin (MCH) determinationOrdered By: Jameson Corral on 09-17-2024 MCH (RBC) [Entitic mass] 30.9 pg 27.0-32.0 [facility] Mean corpuscular hemoglobin concentration (MCHC) determinationOrdered By: Jameson Corral on 09-17-2024 MCHC (RBC) [Mass/Vol] 30.2 g/dL Low 32-36 [facility] Mean platelet volume determi nationOrdered By: Jameson Corral on 09-17-2024 Platelet mean volume (Bld) [Entitic vol] 9.9 fL 6.2-12.0 [facility] Microscopic analysis of urin e for red blood cells (RBC)Ordered By: Jameson Corral on 09-17-2024 Microscopic analysis of urine for red blood cells (RBC) 0 SEEN /hpf 0-5 [facility] Mucus LM Ql (Urine sed)Order ed By: Jameson Corral on 09-17-2024 Mucus Ql (Urine sed) 0 SEEN /hpf [facility] Nitrite Test strip Ql (U)Ord ered By: Jameson Corral on 09-17-2024 Nitrite Ql (U) Negative Negative [facility] Platelet countOrdered By: Zack Jeong on 09-17-2024 Platelets (Bld) [#/Vol] 246 10*3/uL 150-450 [facility] Potassium measurement (mass/ volume)Ordered By: Jameson Corral on 09-17-2024 Potassium (Unsp spec) [Mass/Vol] 4.1 mmol/L 3.3-5.1 [facility] Protein Test strip Ql (U)Ord ered By: Jameson Corral on 09-17-2024 Protein Ql (U) 15 mg/dl High Negative [facility] RBC Auto (Bld) [#/Vol]Ordere d By: Jameson Corral on 09-17-2024 RBC (Bld) [#/Vol] 3.46 10*6/uL Low 4.2-5.4 [facility] Serum creatinine measurement (mass/volume)Ordered By: Jameson Corral on 09-17-2024 Creatinine [Mass/Vol] 0.56 mg/dL Low 0.70-1.20 [facility] Serum glucose measurement (m ass/volume)Ordered By: Jameson Corral on 09-17-2024 Glucose [Mass/Vol] 80 mg/dL 70-99 [facility] Serum or plasma calcium nessa urement (mass/volume)Ordered By: Jameson Corral on 09-17-2024 Calcium [Mass/Vol] 8.9 mg/dL 7.6-11.0 [facility] Serum or plasma urea nitroge n measurement (mass/volume)Ordered By: Jameson Corral on 09-17-2024 Urea nitrogen [Mass/Vol] 15 mg/dL 4-19 [facility] Sodium levelOrdered By: Fabian Corral on 09-17-2024 Sodium [Moles/Vol] 143 mmol/L 133-145 [facility] Squamous epithelial cells de tection in urine sediment by light microscopyOrdered By: Jameson Corral on 09-17-2024 Epithelial cells.squamous LM Ql (Urine sed) 0 SEEN /hpf 5-10 [facility] Urine clarityOrdered By: Pet Ellis on 09-17-2024 Clarity (U) Sl. Cloudy Clear [facility] Urine color determinationOrd ered By: Jameson Corral on 09-17-2024 Color (U) Yellow Yellow [facility] Urine cultureOrdered By: Pet Ellis on 09-17-2024 Bacteria identified Cx Nom (U) Mixed Gram Pos & Gram Neg Org Abnormal [facility] Urine glucose detectionOrder ed By: Jameson Corral on 09-17-2024 Glucose Ql (U) Normal mg/dl Normal [facility] Urine leukocyte esterase det ection by dipstickOrdered By: Jameson Corral on 09-17-2024 Leukocyte esterase Test strip Ql (U) Negative Negative [facility] Urine pHOrdered By: Jameson wilson on 09-17-2024 pH (U) 6.0 [pH] 5.0 - 8.0 [facility] Urine sediment bacteria coun t by microscopy (number/high power field)Ordered By: Jameson Corral on 09-17-2024 Bacteria LM.HPF (Urine sed) [#/Area] 0 /[HPF] None Seen [facility] Urine specific gravity measu rementOrdered By: Jameson Corral on 09-17-2024 Specific gravity (U) [Rel density] 1.020 1.002-1.030 [facility] Urine urobilinogen measureme ntOrdered By: Jameson Corral on 09-17-2024 Urobilinogen Ql (U) Normal mg/dl Normal [facility] White blood cell (WBC) count Ordered By: Jameson Corral on 09-17-2024 WBC (Bld) [#/Vol] 8.0 10*3/uL 4.4-11.0 [facility] White blood cell countOrdere d By: Jameson Corral on 09-17-2024 White blood cell count 0 SEEN /hpf 0-5 [facility] Anion gap in Serum or Plasma Ordered By: Jameson Corral on 09-14-2024 Anion gap [Moles/Vol] 12 mmol/L 5- [facility] BUN/creatinine ratioOrdered By: Jameson Corral on 09-14-2024 Urea nitrogen/Creatinine [Mass ratio] 23.4 mg/mg High - [facility] Basic Metabolic Profile (BMP )on 09-14-2024 BUN/CRE 23.4 RATIO High 01-07 [facility] Comment on above: Order Comment: 311-2 Performed By: #### L 500.2500, L100.0500 #### [facility] [address] [place], [address] Calcium [Mass/Vol] 9.2 mg/dL Normal 7.6-11.0 [facility] Comment on above: Order Comment: 311-2 Performed By: #### L 500.2500, L100.0500 #### [facility] [address] [place], [address] Chloride [Moles/Vol] 98 mmol/L Normal 98-108 [facility] Comment on above: Order Comment: 311-2 Performed By: #### L 500.2500, L100.0500 #### [facility] [address] [place], [address] CO2 [Moles/Vol] 29.4 mmol/L Normal 21.0-32.0 [facility] Comment on above: Order Comment: 311-2 Performed By: #### L 500.2500, L100.0500 #### [facility] [address] [place], [address] Creatinine [Mass/Vol] 0.56 mg/dL Low 0.70-1.20 [facility] Comment on above: Order Comment: 311-2 Performed By: #### L 500.2500, L100.0500 #### [facility] [address] [place], [address] GAP 12 Normal -15 [facility] Comment on above: Order Comment: 311-2 Performed By: #### L 500.2500, L100.0500 #### [facility] [address] [place], [address] GFR/1.73 sq M.predicted among non-blacks MDRD (S/P/Bld) [Vol rate/Area] 100 mL/min/{1.73_m2} Normal >60 [facility] Comment on above: Order Comment: 311-2 Result Comment: mL/m in/1.73m2 CKD-EPI Creatinine Equation (2020) Performed By: #### L 500.2500, L100.0500 #### [facility] [address] [place], [address] Glucose [Mass/Vol] 103 mg/dL High 70-99 [facility] Comment on above: Order Comment: 311-2 Performed By: #### L 500.2500, L100.0500 #### [facility] [address] [place], [address] Potassium [Moles/Vol] 3.9 mmol/L Normal 3.3-5.1 [facility] Comment on above: Order Comment: 311-2 Performed By: #### L 500.2500, L100.0500 #### [facility] [address] [place], [address] Sodium [Moles/Vol] 139 mmol/L Normal 133-145 [facility] Comment on above: Order Comment: 311-2 Performed By: #### L 500.2500, L100.0500 #### [facility] [address] [place], [address] Urea nitrogen [Mass/Vol] 13 mg/dL Normal 4-19 [facility] Comment on above: Order Comment: 311-2 Performed By: #### L 500.2500, L100.0500 #### [facility] [address] [place], [address] CBC-Complete Blood Cnt No Elvia bradshaw 09-14-2024 Erythrocyte distribution width (RBC) [Ratio] 13.4 % Normal 11.6-14.6 [facility] Comment on above: Order Comment: 311-2 Performed By: #### L 500.2500, L100.0500 #### [facility] [address] [place], [address] Hematocrit (Bld) [Volume fraction] 38.3 % Normal 37-47 [facility] Comment on above: Order Comment: 311-2 Performed By: #### L 500.2500, L100.0500 #### [facility] [address] [place], [address] Hemoglobin (Bld) [Mass/Vol] 12.1 g/dL Normal 12.0-15.0 [facility] Comment on above: Order Comment: 311-2 Performed By: #### L 500.2500, L100.0500 #### [facility] [address] [place], [address] MCH (RBC) [Entitic mass] 32.0 pg Normal 27.0-32.0 [facility] Comment on above: Order Comment: 311-2 Performed By: #### L 500.2500, L100.0500 #### [facility] [address] [place], [address] MCHC (RBC) [Mass/Vol] 31.6 g/dL Low 32-36 [facility] Comment on above: Order Comment: 311-2 Performed By: #### L 500.2500, L100.0500 #### [facility] [address] [place], [address] MCV (RBC) [Entitic vol] 101.3 fL High 81-99 [facility] Comment on above: Order Comment: 311-2 Performed By: #### L 500.2500, L100.0500 #### [facility] [address] [place], [address] Platelet mean volume (Bld) [Entitic vol] 9.9 fL Normal 6.2-12.0 [facility] Comment on above: Order Comment: 311-2 Performed By: #### L 500.2500, L100.0500 #### [facility] [address] [place], [address] Platelets (Bld) [#/Vol] 274 10*3/uL Normal 150-450 [facility] Comment on above: Order Comment: 311-2 Performed By: #### L 500.2500, L100.0500 #### [facility] [address] [place], [address] RBC (Bld) [#/Vol] 3.78 10*6/uL Low 4.2-5.4 [facility] Comment on above: Order Comment: 311-2 Performed By: #### L 500.2500, L100.0500 #### [facility] [address] [place], [address] RDW SD 50.9 fl High 35.1-43.9 [facility] Comment on above: Order Comment: 311-2 Performed By: #### L 500.2500, L100.0500 #### [facility] [address] [place], [address] WBC (Bld) [#/Vol] 11.4 10*3/uL High 4.4-11.0 [facility] Comment on above: Order Comment: 311-2 Performed By: #### L 500.2500, L100.0500 #### [facility] [address] [place], [address] Carbon dioxide, total [Moles /volume] in Central venous bloodOrdered By: Jameson Corral on 09-14-2024 CO2 [Moles/Vol] 29.4 mmol/L 21.0-32.0 [facility] Chloride assayOrdered By: Zack Jeong on 09-14-2024 Chloride [Moles/Vol] 98 mmol/L 98-108 [facility] Erythrocyte distribution wid th ratioOrdered By: Jameson Corral on 09-14-2024 Erythrocyte distribution width (RBC) [Ratio] 13.4 % 11.6-14.6 [facility] Erythrocyte distribution wid th standard deviationOrdered By: Jameson Corral on 09-14-2024 Erythrocyte distribution width (RBC) [Ratio] 50.9 fl High 35.1-43.9 [facility] Glomerular filtration rate ( GFR) estimation/1.73 sq m using serum, plasma, or whole bOrdered By: Jameson Corral on 09-14-2024 GFR/1.73 sq M.predicted among non-blacks MDRD (S/P/Bld) [Vol rate/Area] 100 mL/min/{1.73_m2} >60 [facility] Comment on above: mL/min/1.73m2 CKD-EP I Creatinine Equation (2020) Hematocrit Auto (Bld) [Volum e fraction]Ordered By: Jameson Corral on 09-14-2024 Hematocrit (Bld) [Volume fraction] 38.3 % 37-47 [facility] Hemoglobin measurementOrdere d By: Jameson Corral on 09-14-2024 Hemoglobin (Bld) [Mass/Vol] 12.1 g/dL 12.0-15.0 [facility] MCV (mean corpuscular volume ) determinationOrdered By: Jmaeson Corral on 09-14-2024 MCV (RBC) [Entitic vol] 101.3 fL High 81-99 [facility] Mean corpuscular hemoglobin (MCH) determinationOrdered By: Jameson Corral on 09-14-2024 MCH (RBC) [Entitic mass] 32.0 pg 27.0-32.0 [facility] Mean corpuscular hemoglobin concentration (MCHC) determinationOrdered By: Jameson Corral on 09-14-2024 MCHC (RBC) [Mass/Vol] 31.6 g/dL Low 32-36 [facility] Mean platelet volume determi nationOrdered By: Jameson Corral on 09-14-2024 Platelet mean volume (Bld) [Entitic vol] 9.9 fL 6.2-12.0 [facility] Platelet countOrdered By: Zack Jeong on 09-14-2024 Platelets (Bld) [#/Vol] 274 10*3/uL 150-450 [facility] Potassium measurement (mass/ volume)Ordered By: Jameson Corral on 09-14-2024 Potassium (Unsp spec) [Mass/Vol] 3.9 mmol/L 3.3-5.1 [facility] RBC Auto (Bld) [#/Vol]Ordere d By: Jameson Corral on 09-14-2024 RBC (Bld) [#/Vol] 3.78 10*6/uL Low 4.2-5.4 [facility] Serum creatinine measurement (mass/volume)Ordered By: Jameson Corral on 09-14-2024 Creatinine [Mass/Vol] 0.56 mg/dL Low 0.70-1.20 [facility] Serum glucose measurement (m ass/volume)Ordered By: Jameson Corral on 09-14-2024 Glucose [Mass/Vol] 103 mg/dL High 70-99 [facility] Serum or plasma calcium nessa urement (mass/volume)Ordered By: Jameson Corral on 09-14-2024 Calcium [Mass/Vol] 9.2 mg/dL 7.6-11.0 [facility] Serum or plasma urea nitroge n measurement (mass/volume)Ordered By: Jameson Corral on 09-14-2024 Urea nitrogen [Mass/Vol] 13 mg/dL 4-19 [facility] Sodium levelOrdered By: Fabian Corral on 09-14-2024 Sodium [Moles/Vol] 139 mmol/L 133-145 [facility] White blood cell (WBC) count Ordered By: Jameson Corral on 09-14-2024 WBC (Bld) [#/Vol] 11.4 10*3/uL High 4.4-11.0 [facility] 36on 09-07-2024 36 Spoke to Nilesh from [facility] and scheduled patient for a follow up on 09/24@10am. Patient has not been seen for quite a while and also is requesting port removal to be scheduled. Normal [facility] 36 Nilesh from [facility] pt's port was flushed but there was no blood draw back. Patient requested for the port to be removed due to not being used for roughly 1 year. Please contact Nilesh with further questions at [phone] Normal [facility] Progress Noteon 09-06-2024 Progress Note Normal [facility] Thyroid Stim Hormone (TSH)on 08-22-2024 TSH 0.786 uIU/mL Normal 0.300-4.200 [facility] Comment on above: Order Comment: 102.2 Performed By: #### L 400.0001, M100.2200 #### [facility] [address] [place], [address] 37on 08-20-2024 37 Normal [facility] Progress Noteon 08-20-2024 Progress Note Normal [facility] Basic Metabolic Profile (BMP )on 08-15-2024 BUN/CRE 28.5 RATIO High 10-20 [facility] Comment on above: Order Comment: 102-2 Performed By: #### L 100.0500, L500.2500 #### [facility] [address] [place], [address] Calcium [Mass/Vol] 8.8 mg/dL Normal 7.6-11.0 [facility] Comment on above: Order Comment: 102-2 Performed By: #### L 100.0500, L500.2500 #### [facility] [address] [place], [address] Chloride [Moles/Vol] 103 mmol/L Normal 98-108 [facility] Comment on above: Order Comment: 102-2 Performed By: #### L 100.0500, L500.2500 #### [facility] [address] [place], [address] CO2 [Moles/Vol] 31.7 mmol/L Normal 21.0-32.0 [facility] Comment on above: Order Comment: 102-2 Performed By: #### L 100.0500, L500.2500 #### [facility] [address] [place], [address] Creatinine [Mass/Vol] 0.47 mg/dL Low 0.70-1.20 [facility] Comment on above: Order Comment: 102-2 Performed By: #### L 100.0500, L500.2500 #### [facility] [address] [place], [address] GAP 7 Normal 5-15 [facility] Comment on above: Order Comment: 102-2 Performed By: #### L 100.0500, L500.2500 #### [facility] [address] [place], [address] GFR/1.73 sq M.predicted among non-blacks MDRD (S/P/Bld) [Vol rate/Area] 104 mL/min/{1.73_m2} Normal >60 [facility] Comment on above: Order Comment: 102-2 Result Comment: mL/m in/1.73m2 CKD-EPI Creatinine Equation (2020) Performed By: #### L 100.0500, L500.2500 #### [facility] [address] [place], [address] Glucose [Mass/Vol] 85 mg/dL Normal 70-99 [facility] Comment on above: Order Comment: 102-2 Performed By: #### L 100.0500, L500.2500 #### [facility] [address] [place], [address] Potassium [Moles/Vol] 3.9 mmol/L Normal 3.3-5.1 [facility] Comment on above: Order Comment: 102-2 Performed By: #### L 100.0500, L500.2500 #### [facility] [address] [place], [address] Sodium [Moles/Vol] 142 mmol/L Normal 133-145 [facility] Comment on above: Order Comment: 102-2 Performed By: #### L 100.0500, L500.2500 #### [facility] [address] [place], [address] Urea nitrogen [Mass/Vol] 13 mg/dL Normal 4-19 [facility] Comment on above: Order Comment: 102-2 Performed By: #### L 100.0500, L500.2500 #### [facility] [address] [place], [address] CBC-Complete Blood Cnt No Di ffon 08-15-2024 Erythrocyte distribution width (RBC) [Ratio] 14.0 % Normal 11.6-14.6 [facility] Comment on above: Order Comment: 102-2 Performed By: #### L 100.0500, L500.2500 #### [facility] [address] [place], [address] Hematocrit (Bld) [Volume fraction] 34.7 % Low 37-47 [facility] Comment on above: Order Comment: 102-2 Performed By: #### L 100.0500, L500.2500 #### [facility] [address] [place], [address] Hemoglobin (Bld) [Mass/Vol] 10.4 g/dL Low 12.0-15.0 [facility] Comment on above: Order Comment: 102-2 Performed By: #### L 100.0500, L500.2500 #### [facility] [address] [place], [address] MCH (RBC) [Entitic mass] 31.2 pg Normal 27.0-32.0 [facility] Comment on above: Order Comment: 102-2 Performed By: #### L 100.0500, L500.2500 #### [facility] [address] [place], [address] MCHC (RBC) [Mass/Vol] 30.0 g/dL Low 32-36 [facility] Comment on above: Order Comment: 102-2 Performed By: #### L 100.0500, L500.2500 #### [facility] [address] [place], [address] MCV (RBC) [Entitic vol] 104.2 fL High 81-99 [facility] Comment on above: Order Comment: 102-2 Performed By: #### L 100.0500, L500.2500 #### [facility] [address] [place], [address] Platelet mean volume (Bld) [Entitic vol] 9.8 fL Normal 6.2-12.0 [facility] Comment on above: Order Comment: 102-2 Performed By: #### L 100.0500, L500.2500 #### [facility] [address] [place], [address] Platelets (Bld) [#/Vol] 236 10*3/uL Normal 150-450 [facility] Comment on above: Order Comment: 102-2 Performed By: #### L 100.0500, L500.2500 #### [facility] [address] [place], [address] RBC (Bld) [#/Vol] 3.33 10*6/uL Low 4.2-5.4 [facility] Comment on above: Order Comment: 102-2 Performed By: #### L 100.0500, L500.2500 #### [facility] [address] [place], [address] RDW SD 54.0 fl High 35.1-43.9 [facility] Comment on above: Order Comment: 102-2 Performed By: #### L 100.0500, L500.2500 #### [facility] [address] [place], [address] WBC (Bld) [#/Vol] 9.4 10*3/uL Normal 4.4-11.0 [facility] Comment on above: Order Comment: 102-2 Performed By: #### L 100.0500, L500.2500 #### [facility] [address] [place], [address] [id number] 08-10-2024 [id number] Patient Choice Patient Name: GONZALO DELUCA Date of : 1955 Normal [facility] 30on 08-08-2024 30 Normal [facility] 30 Normal [facility] [id number] 08-08-2024 [id number] [facility] [id number] MAY, Discharge med list transmitted and 7000 in HENs to [facility] via [employer] per TCC request. [facility] BASIC METABOLIC PANELon 05-2 Anion gap [Moles/Vol] 8 mmol/L Normal 3-13 [facility] Comment on above: Performed By: #### L [id number] ####Smt Operator: HANS PAULSON ([phone])[facility] ([facility])[address] [place] [address] Calcium [Mass/Vol] 8.6 mg/dL Low 8.8-10.0 [facility] Comment on above: Performed By: #### L AB15 ####Smt Operator: HANS PAULSON ([phone])[facility] ([facility])[address] [place] [address] [place] Chloride [Moles/Vol] 101 mmol/L Normal 98-107 [facility] Comment on above: Performed By: #### L AB15 ####Smt Operator: HANS PAULSON ([phone])[facility] ([facility])[address] [place] [address] [place] CO2 [Moles/Vol] 32 mmol/L High 23-31 [facility] Comment on above: Performed By: #### L AB15 ####Smt Operator: HANS PAULSON ([phone])[facility] [place] (SB[facility])[address] Creatinine [Mass/Vol] 0.63 mg/dL Normal 0.57-1.11 [facility] Comment on above: Performed By: #### L AB15 ####Smt Operator: HANS PAULSON ([phone])[facility] (SB[facility])[address] GLOMERULAR FILTRATION RATE ML/MIN/1.73 SQ M.PREDICTED >90.0 Normal >60.0 [facility] Comment on above: Result Comment: Calc ulation based on the Chronic Kidney Disease Epidemiology Collaboration (CKD-EPI) equation refit without adjustment for race Performed By: #### L AB15 ####Smt Operator: HANS PAULSON ([phone])[facility] (SB[facility])[address] Glucose [Mass/Vol] 99 mg/dL Normal 82-115 [facility] Comment on above: Performed By: #### L AB15 ####Smt Operator: HANS PAULSON ([phone])[facility] (HLAB)[address] Potassium [Moles/Vol] 3.9 mmol/L Normal 3.5-5.1 [facility] Comment on above: Result Comment: [facility] potassium values may be up to 0.5 mmol/L lower than serum values. Performed By: #### L AB15 ####Smt Operator: HANS PAULSON ([phone])[facility] [place] (SBHLAB)[address] [place] [address] [place] Sodium [Moles/Vol] 141 mmol/L Normal 136-145 [facility] Comment on above: Performed By: #### L AB15 ####Smt Operator: HANS PAULSON ([phone])[facility] (SBHLAB)[address] [place] [address] [place] Urea nitrogen [Mass/Vol] 22 mg/dL Normal 9-23 [facility] Comment on above: Performed By: #### L AB15 ####Smt Operator: HANS PAULSON ([phone])[facility] JULITORaimundo (SBHLAB)[address] [place] [address] Basic metabolic 1998 panelon 08-08-2024 Anion gap [Moles/Vol] 8 mmol/L 3 - 13 mmol/L [facility] Calcium [Mass/Vol] 8.6 mg/dL Low 8.8 - 10. 0 mg/dL [facility] Chloride [Moles/Vol] 101 mmol/L 98 - 10 7 mmol/L [facility] CO2 [Moles/Vol] 32 mmol/L High 23 - 31 mmol/L [facility] Creatinine [Mass/Vol] 0.63 mg/dL 0.57 - 1.11 mg/dL [facility] GFR/1.73 sq M.predicted (S/P/Bld) [Vol rate/Area] - PINF [facility] Comment on above: Calculation based on the Chronic Kidney Disease Epidemiology Collaboration (CKD-EPI) equation refit without adjustment for race Glucose [Mass/Vol] 99 mg/dL 82 - 115 mg/dL [facility] Interpretation and review of laboratory results Abnormal [facility] Potassium [Moles/Vol] 3.9 mmol/L 3.5 - 5.1 mmol/L [facility] Comment on above: Plasma potassium martín ues may be up to 0.5 mmol/L lower than serum values. Sodium [Moles/Vol] 141 mmol/L 136 - 145 mmol/L [facility] Urea nitrogen [Mass/Vol] 22 mg/dL 9 - 23 mg/d L [facility] CBC W Auto Differential pane l (Bld)on 08-08-2024 Basophils (Bld) [#/Vol] 0 10*3/uL 0.0 - 0.2 10*3/uL [facility] Basophils/100 WBC (Bld) 0.2 % 0.0 - 2.0 % [facility] Eosinophils (Bld) [#/Vol] 0.4 10*3/uL 0.0 - 0.5 10*3/uL [facility] Eosinophils/100 WBC (Bld) 2.9 % 0.0 - 6.0 % [facility] Erythrocyte distribution width (RBC) [Ratio] 14.6 % 11.5 - 15.0 % [facility] Hematocrit (Bld) [Volume fraction] 33.7 % Low 35.0 - 47.0 % [facility] Hemoglobin (Bld) [Mass/Vol] 10.4 g/dL Low 11.7 - 16.0 g/dL [facility] Immature granulocytes (Bld) [#/Vol] 0 10*3/uL NINF - 0.1 10*3/uL [facility] Immature granulocytes/100 WBC (Bld) 0.3 % 0.0 - 2.0 % [facility] Interpretation and review of laboratory results Abnormal [facility] Lymphocytes (Bld) [#/Vol] 1.1 10*3/uL 1.0 - 4.3 10*3/uL [facility] Lymphocytes/100 WBC (Bld) 9 % Low 15.0 - 45.0 % [facility] MCH (RBC) [Entitic mass] 31.3 pg 26. 0 - 34.0 pg [facility] MCHC (RBC) [Mass/Vol] 30.9 % 30.5 - 36.0 % [facility] MCV (RBC) [Entitic vol] 101.5 fL High 77.0 - 99.0 fL [facility] Monocytes (Bld) [#/Vol] 1.2 10*3/uL High 0.0 - 0.9 10*3/uL [facility] Monocytes/100 WBC (Bld) 9.6 % 5.0 - 13.0 % [facility] Neutrophils (Bld) [#/Vol] 9.8 10*3/uL High 1.8 - 7.5 10*3/uL [facility] Neutrophils/100 WBC (Bld) 78 % 38.0 - 82.0 % [facility] Nucleated RBC/100 WBC (Bld) [Ratio] 0 % [facility] Platelet mean volume (Bld) [Entitic vol] 9.8 fL 9.0 - 12.7 fL [facility] Platelets (Bld) [#/Vol] 192 10*3/uL 140 - 440 10*3/uL [facility] RBC (Bld) [#/Vol] 3.32 10*6/uL Low 3.80 - 5.2 0 10*6/uL [facility] WBC (Bld) [#/Vol] 12.6 10*3/uL High 3.6 - 10.7 10*3/uL [facility] CBC WITH AUTO DIFFERENTIALon 08-08-2024 Basophils (Bld) [#/Vol] 0.0 10*3/uL Normal 0.0-0.2 [facility] Comment on above: Performed By: #### L [id number] ####Smt Operator: HANS PAULSON ([phone])[facility] [place] (SBHLAB)[address] Basophils/100 WBC (Bld) 0.2 % Normal 0.0-2.0 [facility] Comment on above: Performed By: #### L [id number] ####Smt Operator: HANS PAULSON ([phone])[facility] ([facility])[address] [place] [address] Eosinophils (Bld) [#/Vol] 0.4 10*3/uL Normal 0.0-0.5 [facility] Comment on above: Performed By: #### L [id number] ####Smt Operator: HANS PAULSON ([phone])[facility] [employer] [facility] (SB[facility]AB)[address] [place] [address] Eosinophils/100 WBC (Bld) 2.9 % Normal 0.0-6.0 [facility] Comment on above: Performed By: #### L [id number] ####Smt Operator: HANS PAULSON ([phone])[facility] [employer] [facility] [facility] [facility] (SBHLAB)[address] Erythrocyte distribution width (RBC) [Ratio] 14.6 % Normal 11.5-15.0 [facility] Comment on above: Performed By: #### L [id number] ####Smt Operator: HANS PAULSON ([phone])[facility] (SBAB)[address] [place] [address] Hematocrit (Bld) [Volume fraction] 33.7 % Low 35.0-47.0 [facility] Comment on above: Performed By: #### L [id number] ####Smt Operator: HANS PAULSON ([phone])[facility] (SBHLAB)[address] Hemoglobin (Bld) [Mass/Vol] 10.4 g/dL Low 11.7-16.0 [facility] Comment on above: Performed By: #### L [id number] ####Smt Operator: HANS PAULSON ([phone])[facility] (SBHLAB)[address] IMMATURE GRANS % 0.3 % Normal 0.0-2.0 [facility] Comment on above: Performed By: #### L [id number] ####Smt Operator: HANS ALCANTARESCOBAR ([phone])[facility])[address] IMMATURE GRANS ABSOLUTE 0.0 10*3/uL Normal <0.1 [facility] Comment on above: Performed By: #### L [id number] ####Smt Operator: HANS ALCANTARESCOBAR ([phone])[facility] [place] ([facility])[address] [place] [address] [place] Lymphocytes (Bld) [#/Vol] 1.1 10*3/uL Normal 1.0-4.3 [facility] Comment on above: Performed By: #### L [id number] ####Smt Operator: HANS PAULSON ([phone])[facility])[address] Lymphocytes/100 WBC (Bld) 9.0 % Low 15.0-45.0 [facility] Comment on above: Performed By: #### L [id number] ####Smt Operator: HANS PAULSON ([phone])[facility] (SBAB)[address] MCH (RBC) [Entitic mass] 31.3 pg Normal 26.0-34.0 [facility] Comment on above: Performed By: #### L [id number] ####Smt Operator: HANS PAULSON ([phone])[facility] (SBHLAB)[address] MCHC 30.9 % Normal 30.5-36.0 [facility] Comment on above: Performed By: #### L [id number] ####Smt Operator: HANS PAULSON ([phone])[facility] [place] (SBHLAB)[address] MCV (RBC) [Entitic vol] 101.5 fL High 77.0-99.0 S [facility] Comment on above: Performed By: #### L [id number] ####Smt Operator: HANS PAULSON ([phone])[facility] [place] (SBHLAB)[address] Monocytes (Bld) [#/Vol] 1.2 10*3/uL High 0.0-0.9 [facility] Comment on above: Performed By: #### L [id number] ####Smt Operator: HANS PAULSON ([phone])[facility] [place] (SBHLAB)[address] Monocytes/100 WBC (Bld) 9.6 % Normal 5.0-13.0 S [facility] Comment on above: Performed By: #### L [id number] ####Smt Operator: HANS PAULSON ([phone])[facility] (SBHLAB)[address] NEUTROPHILS ABSOLUTE 9.8 10*3/uL High 1.8-7.5 [facility] Comment on above: Performed By: #### L [id number] ####Smt Operator: HANS PAULSON ([phone])[facility] [place] (SBHLAB)[address] Neutrophils/100 WBC (Bld) 78.0 % Normal 38.0-82.0 [facility] Comment on above: Performed By: #### L [id number] ####Smt Operator: HANS PAULSON ([phone])[facility] [place] (SBHLAB)[address] NRBC 0.0 /100 WBCs Normal 0.0-2.0 [facility] Comment on above: Performed By: #### L [id number] ####Smt Operator: HANS LORENE ([phone])[facility] [place] (SBHLAB)[address] Platelet mean volume (Bld) [Entitic vol] 9.8 fL Normal 9.0-12.7 [facility] Comment on above: Performed By: #### L [id number] ####Smt Operator: HANS LORENE ([phone])[facility] [place] (SBHLAB)[address] Platelets (Bld) [#/Vol] 192 10*3/uL Normal 140-440 [facility] Comment on above: Performed By: #### L [id number] ####Smt Operator: HANS LORENE ([phone])[facility]ERN[facility]a [facility]CHM[facility] (SBHLAB)[address] RBC (Bld) [#/Vol] 3.32 10*6/uL Low 3.80-5.20 [facility] Comment on above: Performed By: #### L [id number] ####Smt Operator: HANS WALDROPIVELISSE ([phone])[facility] [place] (SBHLAB)[address] WBC (Bld) [#/Vol] 12.6 10*3/uL High 3.6-10.7 [facility] Comment on above: Performed By: #### L [id number] ####Smt Operator: HANS WALDROPIVELISSE ([phone])[facility] [place] (SBHLAB)[address] COMPLETE URINALYSIS WITH REF FAMILIA TO CULTUREon 08-08-2024 BACTERIA (#/HPF) IN URINE Negative Normal Negative [facility] Comment on above: Performed By: #### L [id number] ####Smt Operator: HANS ALCANTARESCOBAR ([phone])[facility] [place] (SBHLAB)[address] BILIRUBIN, TOTAL PRESENCE IN URINE Negative Normal Negative [facility] Comment on above: Performed By: #### L [id number] ####Smt Operator: HANS ALCANTARESCOBAR ([phone])[facility] ([facility])[address] Clarity (U) Clear Normal Clear [facility] Comment on above: Performed By: #### L [id number] ####Smt Operator: HANS PAULSON ([phone])[facility] [employer] [facility] (SBHLAB)[address] Color (U) Yellow Normal Lt. Yellow [facility] Comment on above: Performed By: #### L [id number] ####Smt Operator: HANS PAULSON ([phone])[facility] ([facility])[address] GLUCOSE (MG/DL) IN URINE Normal Normal Normal (<70 ) [facility] Comment on above: Performed By: #### L [id number] ####Smt Operator: HANS ALCANTARESCOBAR ([id number])[facility] (SBHLAB)[address] HEMOGLOBIN PRESENCE IN URINE Negative Normal Negative [facility] Comment on above: Performed By: #### L [id number] ####Smt Operator: HANS ALCANTARESCOBAR ([phone])[facility] ([facility])[address] [place] [address] [place] Ketones Ql (U) Negative Normal Negative [facility] Comment on above: Performed By: #### L [id number] ####Smt Operator: HANS ALCANTARESCOBAR ([phone])[facility] (SBHLAB)[address] LEUKOCYTE ESTERASE PRESENCE IN URINE BY TEST STRIP Negative Normal Negative [facility] Comment on above: Performed By: #### L [id number] ####Smt Operator: HANS WALDROPKimESCOBAR ([phone])[facility] [place] (SBHLAB)[address] [place] [address] [place] MUCUS (#/LPF) IN URINE SEDIMENT Few Normal Negative [facility] Comment on above: Performed By: #### L [id number] ####Smt Operator: HANS WALDROPIVELISSE ([phone])[facility] [place] (SBHLAB)[address] NITRITE PRESENCE IN URINE Negative Normal Negative [facility] Comment on above: Performed By: #### L [id number] ####Smt Operator: HANS WALDROPIVELISSE ([phone])[facility] [place] ([facility])[address] pH (U) 6.0 [pH] Normal 5.0-8.0 [facility] Comment on above: Performed By: #### L [id number] ####Smt Operator: HANS WALDROPIVELISSE ([id number])[facility] [place] ([facility])[address] Protein (U) [Mass/Vol] 20 mg/dL Abnormal Negative [facility] Comment on above: Performed By: #### L [id number] ####Smt Operator: HANS WALDROPIVELISSE ([phone])[facility])[address] [place] [address] [place] RBC (#/HPF) IN URINE SEDIMENT 0-2 Normal 0-2 [facility] Comment on above: Performed By: #### L [id number] ####Smt Operator: HANS ALCANTARESCOBAR ([phone])[facility] ([facility])[address] [place] [address] Specific gravity (U) [Rel density] 1.026 Normal 1.005-1.030 [facility] Comment on above: Result Comment: KYM R COMMENTS:A specimen with <=10 WBC is not consistent with inflammation. This specimen will not reflex to a urine culture. Performed By: #### L [id number] ####Smt Operator: HANS PAULSON ([id number])[facility]OS[facility] (SBHLAB)[address] SQUAMOUS EPITHELIAL CELLS (#/HPF) IN URINE SEDIMENT 0-2 Normal 3-5 [facility] Comment on above: Performed By: #### L [id number] ####Smt Operator: HANS PAULSON ([id number])[facility] (SBHLAB)[address] UROBILINOGEN (MG/DL) IN URINE Normal Normal Normal (0-1) [facility] Comment on above: Performed By: #### L [id number] ####Smt Operator: HANS PAULSON ([phone])[facility] (SBHLAB)[address] [place] [address] WBC (LEUKOCYTE) (#/HPF) IN URINE SEDIMENT 3-5 Normal 0-5 [facility] Comment on above: Performed By: #### L [id number] ####Smt Operator: HANS ALCANTARESCOBAR ([phone])[facility] (SBHLAB)[address] [place] [address] Nursing Noteon 08-08-2024 [facility] scheduled for 3:30pm. Normal [facility] Nursing Note Normal [facility] Progress Noteon 08-08-2024 Progress Note Normal [facility] Progress Note Patient chart review ed and being rounded on. Note to follow. 6:29 AM 08/08/24 Rena Beverly MD Division of Hospitalist Medicine Acute care [facility] Normal [facility] Urinalysis complete panel (U )Ordered By: Ziyad Ruiz on 08-08-2024 Bacteria LM.HPF (Urine sed) [#/Area] Negative Negative /HPF [facility] Bilirubin Ql (U) Negative Negative mg/dL [facility] Clarity (U) Clear Clear [facility] Color (U) Yellow Lt. Yellow [facility] Epithelial cells.squamous LM.HPF (Urine sed) [#/Area] 0-2 [facility] Gl[facility] Ql (U) Normal Normal (<70) mg/dL [facility] Hemoglobin Ql (U) Negative Negative mg/dL [facility] Interpretation and review of laboratory results Abnormal [facility] Ketones (U) [Mass/Vol] Negative Negat kenton mg/dL [facility] Leukocyte esterase Test strip Ql (U) Negative Negative Sandra/uL [facility] Mucus LM.HPF (Urine sed) [#/Area] Few Negative /LPF [facility] Nitrite Ql (U) Negative Negative [facility] th pH (U) 6.0 [pH] 5.0 - 8.0 pH [facility] Protein (U) [Mass/Vol] 20 mg/dL Abnormal Negative [facility] RBC LM.HPF (Urine sed) [#/Area] 0-2 [facility] Specific gravity (U) [Rel density] 1.026 1.005 - 1.030 [facility] Urobilinogen (U) [Mass/Vol] Normal Normal (0-1) mg/dL [facility] WBC LM.HPF (Urine sed) [#/Area] 3-5 [facility] A specimen with <=10 WBC is not consistent with inflammation. This specimen will not reflex to a urine culture. [facility] XR Chest 2 Viewson No significant change compared to the prior exam. Report Dictated on Electronically Signed By: Pawan Cordova MD Electronically Signed Date/Time: 08/08/2024 10:02 AM [facility] Patient Name: GONZALO DELUCA : 1955 [facility]#: [id number] Exam Date/Time: 08/08/2024 09:53 Procedure: XR CHEST [...] the spine similar to prior CT imaging. [facility] Pawan Cordova MD - 08/08/2024 Patient Name: [facility]ONZALO [facility] 1955 [id number] Exam Date/Time: 08/08/2024 09:53 Procedure: XR CHEST [...] Electronically Signed Date/Time: 08/08/2024 10:02 AM EDT [facility] Radiology Study observation (narrative) [facility] XR Chest 2 ViewsOrdered By: Pawan Cordova on 08-08-2024 [facility] [email or web address] Work Phone: [phone] 08-07-2024 [id number] Normal [facility] BASIC METABOLIC PANELon 07-20 Anion gap [Moles/Vol] 7 mmol/L Normal 3-13 [facility] Comment on above: Performed By: #### L [id number] ####Smt Operator: HANS PAULSON ([phone])[facility] [place] (SBHLAB)[address] [place] [address] Calcium [Mass/Vol] 9.3 mg/dL Normal 8.8-10.0 [facility] Comment on above: Performed By: #### L [id number] ####Smt Operator: HANS PAULSON ([id number])[facility] [place] (SBHLAB)[address] Chloride [Moles/Vol] 101 mmol/L Normal 98-107 [facility] Comment on above: Performed By: #### L AB15 ####Smt Operator: HANS PAULSON ([phone])[facility] [place] (SBHLAB)[address] CO2 [Moles/Vol] 33 mmol/L High 23-31 [facility] Comment on above: Performed By: #### L AB15 ####Smt Operator: HANS PAULSON ([phone])[facility] [place] (SB[facility])[address] Creatinine [Mass/Vol] 0.59 mg/dL Normal 0.57-1.11 [facility] Comment on above: Performed By: #### L AB15 ####Smt Operator: HANS PAULSON ([phone])[facility] [place] (SBHLAB)[address] GLOMERULAR FILTRATION RATE ML/MIN/1.73 SQ M.PREDICTED >90.0 Normal >60.0 [facility] Comment on above: Result Comment: Calc ulation based on the Chronic Kidney Disease Epidemiology Collaboration (CKD-EPI) equation refit without adjustment for race Performed By: #### L AB15 ####Smt Operator: HANS PAULSON ([phone])[facility] [place] (SB[facility])[address] [place] [address] [place] Glucose [Mass/Vol] 124 mg/dL High 82-115 [facility] Comment on above: Performed By: #### L AB15 ####Smt Operator: HANS PAULSON ([phone])[facility] [place] (SB[facility]AB)[address] [place] [address] [place] Potassium [Moles/Vol] 3.7 mmol/L Normal 3.5-5.1 [facility] Comment on above: Result Comment: [facility] potassium values may be up to 0.5 mmol/L lower than serum values. Performed By: #### L AB15 ####Smt Operator: HANS ALCANTARESCBOAR ([phone])[facility] (SBHLAB)[address] Sodium [Moles/Vol] 141 mmol/L Normal 136-145 [facility] Comment on above: Performed By: #### L [id number] ####Smt Operator: HANS WALDROPIVELISSE ([phone])[facility] (SBHLAB)[address] Urea nitrogen [Mass/Vol] 28 mg/dL High 9-23 [facility] Comment on above: Performed By: #### L [id number] ####Smt Operator: HANS ALCANTARESCOBAR ([phone])[facility] (SBHLAB)[address] Basic metabolic 1998 panelon 08-07-2024 Anion gap [Moles/Vol] 7 mmol/L 3 - 13 mmol/L [facility] Calcium [Mass/Vol] 9.3 mg/dL 8.8 - 10. 0 mg/dL [facility] Chloride [Moles/Vol] 101 mmol/L 98 - 10 7 mmol/L [facility] CO2 [Moles/Vol] 33 mmol/L High 23 - 31 mmol/L [facility] Creatinine [Mass/Vol] 0.59 mg/dL 0.57 - 1.11 mg/dL [facility] GFR/1.73 sq M.predicted (S/P/Bld) [Vol rate/Area] - PINF [facility] Comment on above: Calculation based on the Chronic Kidney Disease Epidemiology Collaboration (CKD-EPI) equation refit without adjustment for race Glucose [Mass/Vol] 124 mg/dL High 82 - 115 mg/dL [facility] Interpretation and review of laboratory results Abnormal [facility] Potassium [Moles/Vol] 3.7 mmol/L 3.5 - 5.1 mmol/L [facility] Comment on above: Plasma potassium martín ues may be up to 0.5 mmol/L lower than serum values. Sodium [Moles/Vol] 141 mmol/L 136 - 145 mmol/L [facility] Urea nitrogen [Mass/Vol] 28 mg/dL High 9 - 23 mg/d L [facility] CBC W Auto Differential pane l (Bld)Ordered By: Crystal Dupont on 08-07-2024 Basophils (Bld) [#/Vol] 0 10*3/uL 0.0 - 0.2 10*3/uL [facility] Basophils/100 WBC (Bld) 0.2 % 0.0 - 2.0 % [facility] Eosinophils (Bld) [#/Vol] 0.3 10*3/uL 0.0 - 0.5 10*3/uL [facility] Eosinophils/100 WBC (Bld) 3.2 % 0.0 - 6.0 % [facility] Erythrocyte distribution width (RBC) [Ratio] 14.3 % 11.5 - 15.0 % [facility] Hematocrit (Bld) [Volume fraction] 33.8 % Low 35.0 - 47.0 % [facility] Hemoglobin (Bld) [Mass/Vol] 10.5 g/dL Low 11.7 - 16.0 g/dL [facility] Immature granulocytes (Bld) [#/Vol] 0 10*3/uL NINF - 0.1 10*3/uL [facility] Immature granulocytes/100 WBC (Bld) 0.1 % 0.0 - 2.0 % [facility] Interpretation and review of laboratory results Abnormal [facility] Lymphocytes (Bld) [#/Vol] 1.2 10*3/uL 1.0 - 4.3 10*3/uL [facility] Lymphocytes/100 WBC (Bld) 14.2 % Low 15.0 - 45.0 % [facility] MCH (RBC) [Entitic mass] 31.1 pg 26. 0 - 34.0 pg [facility] MCHC (RBC) [Mass/Vol] 31.1 % 30.5 - 36.0 % [facility] MCV (RBC) [Entitic vol] 100 fL High 77.0 - 99.0 fL [facility] Monocytes (Bld) [#/Vol] 0.8 10*3/uL 0.0 - 0.9 10*3/uL [facility] Monocytes/100 WBC (Bld) 9.6 % 5.0 - 13.0 % [facility] Neutrophils (Bld) [#/Vol] 6.3 10*3/uL 1.8 - 7.5 10*3/uL [facility] Neutrophils/100 WBC (Bld) 72.7 % 38.0 - 82.0 % [facility] Nucleated RBC/100 WBC (Bld) [Ratio] 0 % [facility] Platelet mean volume (Bld) [Entitic vol] 9.9 fL 9.0 - 12.7 fL [facility] Platelets (Bld) [#/Vol] 189 10*3/uL 140 - 440 10*3/uL [facility] RBC (Bld) [#/Vol] 3.38 10*6/uL Low 3.80 - 5.2 0 10*6/uL [facility] WBC (Bld) [#/Vol] 8.7 10*3/uL 3.6 - 10.7 10*3/uL [facility] CBC WITH AUTO DIFFERENTIALon 08-07-2024 Basophils (Bld) [#/Vol] 0.0 10*3/uL Normal 0.0-0.2 [facility] Comment on above: Performed By: #### L [id number] ####Smt Operator: HANS PAULSON ([phone])[facility] ([facility])[address] [place] [address] Basophils/100 WBC (Bld) 0.2 % Normal 0.0-2.0 S [facility] Comment on above: Performed By: #### L [id number] ####Smt Operator: HANS PALUSON ([phone])[facility] ([facility])[address] Eosinophils (Bld) [#/Vol] 0.3 10*3/uL Normal 0.0-0.5 [facility] Comment on above: Performed By: #### L [id number] ####Smt Operator: HANS PAULSON ([phone])[facility] ([facility])[address] Eosinophils/100 WBC (Bld) 3.2 % Normal 0.0-6.0 [facility] Comment on above: Performed By: #### L [id number] ####Smt Operator: HANS PAULSON ([phone])[facility] [place] [address] Erythrocyte distribution width (RBC) [Ratio] 14.3 % Normal 11.5-15.0 [facility] Comment on above: Performed By: #### L [id number] ####Smt Operator: HANS ALCANTARESCOBAR ([phone])[facility] ([facility])[address] [place] [address] Hematocrit (Bld) [Volume fraction] 33.8 % Low 35.0-47.0 [facility] Comment on above: Performed By: #### L [id number] ####Smt Operator: HANS ALCANTARESCOBAR ([phone])[facility] ([facility])[address] [place] [address] Hemoglobin (Bld) [Mass/Vol] 10.5 g/dL Low 11.7-16.0 [facility] Comment on above: Performed By: #### L [id number] ####Smt Operator: HANS PAULSON ([phone])[facility] ([facility])[address] [place] [address] IMMATURE GRANS % 0.1 % Normal 0.0-2.0 [facility] Comment on above: Performed By: #### L [id number] ####Smt Operator: HANS PAULSON ([phone])[facility] ([facility])[address] [place] [address] IMMATURE GRANS ABSOLUTE 0.0 10*3/uL Normal <0.1 [facility] Comment on above: Performed By: #### L [id number] ####Smt Operator: HANS PAULSON ([phone])[facility] ([facility])[address] [place] [address] Lymphocytes (Bld) [#/Vol] 1.2 10*3/uL Normal 1.0-4.3 [facility] Comment on above: Performed By: #### L [id number] ####Smt Operator: HANS PAULSON ([phone])[facility] (SBHLAB)[address] Lymphocytes/100 WBC (Bld) 14.2 % Low 15.0-45.0 [facility] Comment on above: Performed By: #### L [id number] ####Smt Operator: HANS PAULSON ([phone])[facility] CENTERNorma [facility] (SBHLAB)[address] MCH (RBC) [Entitic mass] 31.1 pg Normal 26.0-34.0 [facility] Comment on above: Performed By: #### L [id number] ####Smt Operator: HANS WALDROPKimESCOBAR ([phone])[facility] CENTERNorma VILARaim[facility] (SBHLAB)[address] MCHC 31.1 % Normal 30.5-36.0 [facility] Comment on above: Performed By: #### L [id number] ####Smt Operator: HANS PAULSON ([phone])[facility]ENTERNorma [facility] HOSPITALRaimundo (SBHLAB)[address] MCV (RBC) [Entitic vol] 100.0 fL High 77.0-99.0 S [facility] Comment on above: Performed By: #### L [id number] ####Smt Operator: HANS PAULSON ([phone])[facility] CENTERNorma [facility] HOSPITALRaimundo (SBHLAB)[address] Monocytes (Bld) [#/Vol] 0.8 10*3/uL Normal 0.0-0.9 [facility] Comment on above: Performed By: #### L [id number] ####Smt Operator: HANS PAULSON ([phone])[facility]ENTERNorma [facility] (SBHLAB)[address] Monocytes/100 WBC (Bld) 9.6 % Normal 5.0-13.0 S [facility] Comment on above: Performed By: #### L [id number] ####Smt Operator: HANS ALCANTARESCOBAR ([phone])[facility]A [place] (SBHLAB)[address] NEUTROPHILS ABSOLUTE 6.3 10*3/uL Normal 1.8-7.5 [facility] Comment on above: Performed By: #### L [id number] ####Smt Operator: HANS AGUILARCER ([phone])[facility]A [place] (SBHLAB)[address] Neutrophils/100 WBC (Bld) 72.7 % Normal 38.0-82.0 [facility] Comment on above: Performed By: #### L [id number] ####Smt Operator: HANS WALDROPIVELISSE ([phone])[facility]A [place] (SBHLAB)[address] NRBC 0.0 /100 WBCs Normal 0.0-2.0 [facility] Comment on above: Performed By: #### L [id number] ####Smt Operator: HANS ALCANTARESCOBAR ([phone])[facility] [place] (SBHLAB)[address] Platelet mean volume (Bld) [Entitic vol] 9.9 fL Normal 9.0-12.7 [facility] Comment on above: Performed By: #### L [id number] ####Smt Operator: HANS PAULSON ([phone])[facility] [place] (SBHLAB)[address] Platelets (Bld) [#/Vol] 189 10*3/uL Normal 140-440 [facility] Comment on above: Performed By: #### L [id number] ####Smt Operator: HANS ALCANTARESCOBAR ([phone])[facility] [place] (SBHLAB)[address] RBC (Bld) [#/Vol] 3.38 10*6/uL Low 3.80-5.20 [facility] Comment on above: Performed By: #### L [id number] ####Smt Operator: HANS PAULSON ([phone])[facility] (SBHLAB)[address] WBC (Bld) [#/Vol] 8.7 10*3/uL Normal 3.6-10.7 [facility] Comment on above: Performed By: #### L [id number] ####Smt Operator: HANS PAULSON ([phone])[facility] (SBHLAB)[address] Progress Noteon 08-07-[address] [facility] Progress Note Normal [facility] 30on 08-06-2024 30 Normal [facility] 30 Normal [facility] 30 Normal [facility] [id number] 08-06-2024 [id number] Normal [facility] [id number] Normal [facility] BASIC METABOLIC PANELon 05- Anion gap [Moles/Vol] 7 mmol/L Normal 3-13 [facility] Comment on above: Performed By: #### L [id number] ####Smt Operator: HANS PAULSON ([phone])[facility] [place] [address] Calcium [Mass/Vol] 8.9 mg/dL Normal 8.8-10.0 [facility] Comment on above: Performed By: #### L AB15 ####Smt Operator: HANS PAULSON ([phone])[facility] (SBHLAB)[address] Chloride [Moles/Vol] 101 mmol/L Normal 98-107 [facility] Comment on above: Performed By: #### L [id number] ####Smt Operator: HANS PAULSON ([phone])[facility] (SBHLAB)[address] CO2 [Moles/Vol] 33 mmol/L High 23-31 [facility] Comment on above: Performed By: #### L AB15 ####Smt Operator: HANS PAULSON ([phone])[facility] [place] (SBHLAB)[address] Creatinine [Mass/Vol] 0.56 mg/dL Low 0.57-1.11 [facility] Comment on above: Performed By: #### L AB15 ####Smt Operator: HANS PAULSON ([phone])[facility]A [facility]IMBR[facility]OSPITALN (SBHLAB)[address] GLOMERULAR FILTRATION RATE ML/MIN/1.73 SQ M.PREDICTED >90.0 Normal >60.0 [facility] Comment on above: Result Comment: Calc ulation based on the Chronic Kidney Disease Epidemiology Collaboration (CKD-EPI) equation refit without adjustment for race Performed By: #### L AB15 ####Smt Operator: HANS PAULSON ([phone])[facility]A [facility]ITALN (SBHLAB)[address] Glucose [Mass/Vol] 93 mg/dL Normal 82-115 [facility] Comment on above: Performed By: #### L [id number] ####Smt Operator: HANS PAULSON ([phone])[facility]ENTERA [facility] (SBHLAB)[address] Potassium [Moles/Vol] 3.8 mmol/L Normal 3.5-5.1 [facility] Comment on above: Result Comment: [facility] potassium values may be up to 0.5 mmol/L lower than serum values. Performed By: #### L AB15 ####Smt Operator: HANS PAULSON ([phone])[facility] [place] (SBHLAB)[address] [place] [address] [place] Sodium [Moles/Vol] 141 mmol/L Normal 136-145 [facility] Comment on above: Performed By: #### L AB15 ####Smt Operator: HANS PAULSON ([phone])[facility]A [facility]IM[facility]PITALN (SBHLAB)[address] [place] [address] [place] Urea nitrogen [Mass/Vol] 27 mg/dL High 9-23 [facility] Comment on above: Performed By: #### L AB15 ####Smt Operator: HANS PAULSON ([phone])[facility] (SBHLAB)[address] [place] [address] Basic metabolic 1998 panelon 08-06-2024 Anion gap [Moles/Vol] 7 mmol/L 3 - 13 mmol/L [facility] Calcium [Mass/Vol] 8.9 mg/dL 8.8 - 10. 0 mg/dL [facility] Chloride [Moles/Vol] 101 mmol/L 98 - 10 7 mmol/L [facility] CO2 [Moles/Vol] 33 mmol/L High 23 - 31 mmol/L [facility] Creatinine [Mass/Vol] 0.56 mg/dL Low 0.57 - 1.11 mg/dL [facility] GFR/1.73 sq M.predicted (S/P/Bld) [Vol rate/Area] - PINF [facility] Comment on above: Calculation based on the Chronic Kidney Disease Epidemiology Collaboration (CKD-EPI) equation refit without adjustment for race Glucose [Mass/Vol] 93 mg/dL 82 - 115 mg/dL [facility] Interpretation and review of laboratory results Abnormal [facility] Potassium [Moles/Vol] 3.8 mmol/L 3.5 - 5.1 mmol/L [facility] Comment on above: Plasma potassium martín ues may be up to 0.5 mmol/L lower than serum values. Sodium [Moles/Vol] 141 mmol/L 136 - 145 mmol/L [facility] Urea nitrogen [Mass/Vol] 27 mg/dL High 9 - 23 mg/d L [facility] CBC W Auto Differential pane l (Bld)Ordered By: Hakeem Cruz on 08-06-2024 Basophils (Bld) [#/Vol] 0.1 10*3/uL 0.0 - 0.2 10*3/uL [facility] Basophils/100 WBC (Bld) 0.6 % 0.0 - 2.0 % [facility] Eosinophils (Bld) [#/Vol] 0.3 10*3/uL 0.0 - 0.5 10*3/uL [facility] Eosinophils/100 WBC (Bld) 3.3 % 0.0 - 6.0 % [facility] Erythrocyte distribution width (RBC) [Ratio] 14 % 11.5 - 15.0 % [facility] Hematocrit (Bld) [Volume fraction] 35.3 % 35.0 - 47.0 % [facility] Hemoglobin (Bld) [Mass/Vol] 10.7 g/dL Low 11.7 - 16.0 g/dL [facility] Immature granulocytes (Bld) [#/Vol] 0 10*3/uL NINF - 0.1 10*3/uL [facility] Immature granulocytes/100 WBC (Bld) 0.4 % 0.0 - 2.0 % [facility] Interpretation and review of laboratory results Abnormal [facility] Lymphocytes (Bld) [#/Vol] 1.4 10*3/uL 1.0 - 4.3 10*3/uL [facility] Lymphocytes/100 WBC (Bld) 18.1 % 15.0 - 45.0 % [facility] MCH (RBC) [Entitic mass] 30.8 pg 26. 0 - 34.0 pg [facility] MCHC (RBC) [Mass/Vol] 30.3 % Low 30.5 - 36.0 % [facility] MCV (RBC) [Entitic vol] 101.7 fL High 77.0 - 99.0 fL [facility] Monocytes (Bld) [#/Vol] 0.8 10*3/uL 0.0 - 0.9 10*3/uL [facility] Monocytes/100 WBC (Bld) 9.6 % 5.0 - 13.0 % [facility] Neutrophils (Bld) [#/Vol] 5.3 10*3/uL 1.8 - 7.5 10*3/uL [facility] Neutrophils/100 WBC (Bld) 68 % 38.0 - 82.0 % [facility] Nucleated RBC/100 WBC (Bld) [Ratio] 0 % [facility] Platelet mean volume (Bld) [Entitic vol] 9.6 fL 9.0 - 12.7 fL [facility] Platelets (Bld) [#/Vol] 166 10*3/uL 140 - 440 10*3/uL [facility] RBC (Bld) [#/Vol] 3.47 10*6/uL Low 3.80 - 5.2 0 10*6/uL [facility] WBC (Bld) [#/Vol] 7.8 10*3/uL 3.6 - 10.7 10*3/uL [facility] CBC WITH AUTO DIFFERENTIALon 08-06-2024 Basophils (Bld) [#/Vol] 0.1 10*3/uL Normal 0.0-0.2 [facility] Comment on above: Performed By: #### L [id number] ####Smt Operator: HANS PAULSON ([phone])[facility] [place] (SBHLAB)[address] Basophils/100 WBC (Bld) 0.6 % Normal 0.0-2.0 S [facility] Comment on above: Performed By: #### L [id number] ####Smt Operator: HANS PAULSON ([phone])[facility]A [employer] [facility] [employer] (SBHLAB)[address] [place] [address] Eosinophils (Bld) [#/Vol] 0.3 10*3/uL Normal 0.0-0.5 [facility] Comment on above: Performed By: #### L [id number] ####Smt Operator: HANS PAULSON ([phone])[facility] [employer] [facility] (SBAB)[address] [place] [address] Eosinophils/100 WBC (Bld) 3.3 % Normal 0.0-6.0 [facility] Comment on above: Performed By: #### L [id number] ####Smt Operator: HANS PAULSON ([phone])[facility]A [facility]N (SBHLAB)[address] [place] [address] Erythrocyte distribution width (RBC) [Ratio] 14.0 % Normal 11.5-15.0 [facility] Comment on above: Performed By: #### L [id number] ####Smt Operator: HANS PAULSON ([phone])[facility] (SBHLAB)[address] [place] [address] Hematocrit (Bld) [Volume fraction] 35.3 % Normal 35.0-47.0 [facility] Comment on above: Performed By: #### L [id number] ####Smt Operator: HANS PAULSON ([phone])[facility] [employer] [facility] [employer] [facility] (SBHLAB)[address] Hemoglobin (Bld) [Mass/Vol] 10.7 g/dL Low 11.7-16.0 [facility] Comment on above: Performed By: #### L [id number] ####Smt Operator: HANS PAULSON ([phone])[facility] (SBHLAB)[address] IMMATURE GRANS % 0.4 % Normal 0.0-2.0 [facility] Comment on above: Performed By: #### L [id number] ####Smt Operator: HANS PAULSON ([phone])[facility] IMMATURE GRANS ABSOLUTE 0.0 10*3/uL Normal <0.1 [facility] Comment on above: Performed By: #### L [id number] ####Smt Operator: HANS PAULSON ([phone])[facility] Lymphocytes (Bld) [#/Vol] 1.4 10*3/uL Normal 1.0-4.3 [facility] Comment on above: Performed By: #### L [id number] ####Smt Operator: HANS PAULSON ([phone])[facility] (SBAB)[address] Lymphocytes/100 WBC (Bld) 18.1 % Normal 15.0-45.0 [facility] Comment on above: Performed By: #### L [id number] ####Smt Operator: HANS PAULSON ([phone])[facility] (SBAB)[address] MCH (RBC) [Entitic mass] 30.8 pg Normal 26.0-34.0 [facility] Comment on above: Performed By: #### L [id number] ####Smt Operator: HANS ALCANTARESCOBAR ([phone])[facility] [place] (SBHLAB)[address] MCHC 30.3 % Low 30.5-36.0 [facility] Comment on above: Performed By: #### L [id number] ####Smt Operator: HANS ALCANTARESCOBAR ([phone])[facility] [place] (SBHLAB)[address] MCV (RBC) [Entitic vol] 101.7 fL High 77.0-99.0 S [facility] Comment on above: Performed By: #### L [id number] ####Smt Operator: HANS ALCANTARESCOBAR ([phone])[facility] [place] (SBHLAB)[address] Monocytes (Bld) [#/Vol] 0.8 10*3/uL Normal 0.0-0.9 [facility] Comment on above: Performed By: #### L [id number] ####Smt Operator: HANS ALCANTARESCOBAR ([phone])[facility] [place] (SBHLAB)[address] Monocytes/100 WBC (Bld) 9.6 % Normal 5.0-13.0 S [facility] Comment on above: Performed By: #### L [id number] ####Smt Operator: HANS PAULSON ([phone])[facility] [place] (SBHLAB)[address] NEUTROPHILS ABSOLUTE 5.3 10*3/uL Normal 1.8-7.5 [facility] Comment on above: Performed By: #### L [id number] ####Smt Operator: HANS ALCANTARESCOBAR ([phone])[facility] [place] (SBHLAB)[address] Neutrophils/100 WBC (Bld) 68.0 % Normal 38.0-82.0 [facility] Comment on above: Performed By: #### L [id number] ####Smt Operator: HANS PAULSON ([phone])[facility] [place] (SBHLAB)[address] NRBC 0.0 /100 WBCs Normal 0.0-2.0 [facility] Comment on above: Performed By: #### L [id number] ####Smt Operator: HANS WALDROPIVELISSE ([phone])[facility] [place] (SBHLAB)[address] Platelet mean volume (Bld) [Entitic vol] 9.6 fL Normal 9.0-12.7 [facility] Comment on above: Performed By: #### L [id number] ####Smt Operator: HANS WALRDOPIVELISSE ([phone])[facility] [place] (SBHLAB)[address] Platelets (Bld) [#/Vol] 166 10*3/uL Normal 140-440 [facility] Comment on above: Performed By: #### L [id number] ####Smt Operator: HANS PAULSON ([phone])[facility] [place] (SBHLAB)[address] RBC (Bld) [#/Vol] 3.47 10*6/uL Low 3.80-5.20 [facility] Comment on above: Performed By: #### L [id number] ####Smt Operator: HANS PAULSON ([phone])[facility] [place] (SBHLAB)[address] WBC (Bld) [#/Vol] 7.8 10*3/uL Normal 3.6-10.7 [facility] Comment on above: Performed By: #### L [id number] ####Smt Operator: HANS PAULSON ([phone])[facility] [place] (SBHLAB)[address] Progress Noteon 08-06-2024 Progress Note Normal [facility] Progress Note Normal [facility] Progress Note Normal [facility] Progress Note Normal [facility] Progress Note Normal [facility] Progress Note Normal [facility] 30on 08-05-2024 30 Normal [facility] 30 Normal [facility] BASIC METABOLIC PANELon 07-19 Anion gap [Moles/Vol] 5 mmol/L Normal 3-13 [facility] Comment on above: Performed By: #### L AB15 ####Smt Operator: HANS PAULSON ([phone])[facility] [place] (SBHLAB)[address] Calcium [Mass/Vol] 9.4 mg/dL Normal 8.8-10.0 [facility] Comment on above: Performed By: #### L AB15 ####Smt Operator: HANS PAULSON ([id number])[facility] [place] ([facility])[address] [place] [address] [place] Chloride [Moles/Vol] 100 mmol/L Normal 98-107 [facility] Comment on above: Performed By: #### L AB15 ####Smt Operator: HANS PAULSON ([id number])[facility] [place] ([facility])[address] [place] [address] [place] CO2 [Moles/Vol] 36 mmol/L High 23-31 [facility] Comment on above: Performed By: #### L AB15 ####Smt Operator: HANS PAULSON ([id number])[facility] [place] ([facility])[address] Creatinine [Mass/Vol] 0.57 mg/dL Normal 0.57-1.11 [facility] Comment on above: Performed By: #### L AB15 ####Smt Operator: HANS PAULSON ([id number])[facility] ([facility])[address] GLOMERULAR FILTRATION RATE ML/MIN/1.73 SQ M.PREDICTED >90.0 Normal >60.0 [facility] Comment on above: Result Comment: Calc ulation based on the Chronic Kidney Disease Epidemiology Collaboration (CKD-EPI) equation refit without adjustment for race Performed By: #### L AB15 ####Smt Operator: HANS PAULSON ([id number])[facility] (SBHLAB)[address] Glucose [Mass/Vol] 102 mg/dL Normal 82-115 [facility] Comment on above: Performed By: #### L AB15 ####Smt Operator: HANS PAULSON ([id number])[facility] (SBHLAB)[address] Potassium [Moles/Vol] 4.3 mmol/L Normal 3.5-5.1 [facility] Comment on above: Result Comment: [facility] potassium values may be up to 0.5 mmol/L lower than serum values. Performed By: #### L [id number] ####Smt Operator: HANS PAULSON ([phone])[facility] (SB[facility])[address] Sodium [Moles/Vol] 141 mmol/L Normal 136-145 [facility] Comment on above: Performed By: #### L [id number] ####Smt Operator: HANS PAULSON ([phone])[facility] (SB[facility])[address] Urea nitrogen [Mass/Vol] 25 mg/dL High 9-23 [facility] Comment on above: Performed By: #### L [id number] ####Smt Operator: HANS PAULSON ([phone])[facility] (SBHLAB)155 [place] [address] [place] Bacteria identified Aer cx N om (Lower resp)Ordered By: Joaquina Andrade on 08-05-2024 Gram Stain Result Few Epithelial cells per low power field Abnormal [facility] Gram Stain Result Many Polymorphonucle ar leukocytes per low power field Abnormal [facility] Gram Stain Result Positive Abnormal [facility] Gram Stain Result Negative Abnormal [facility] Interpretation and review of laboratory results Abnormal [facility] Basic metabolic 1998 panelon 08-05-2024 Anion gap [Moles/Vol] 5 mmol/L 3 - 13 mmol/L [facility] Calcium [Mass/Vol] 9.4 mg/dL 8.8 - 10. 0 mg/dL [facility] Chloride [Moles/Vol] 100 mmol/L 98 - 10 7 mmol/L [facility] CO2 [Moles/Vol] 36 mmol/L High 23 - 31 mmol/L [facility] Creatinine [Mass/Vol] 0.57 mg/dL 0.57 - 1.11 mg/dL [facility] GFR/1.73 sq M.predicted (S/P/Bld) [Vol rate/Area] - PINF [facility] Comment on above: Calculation based on the Chronic Kidney Disease Epidemiology Collaboration (CKD-EPI) equation refit without adjustment for race Glucose [Mass/Vol] 102 mg/dL 82 - 115 mg/dL [facility] Interpretation and review of laboratory results Abnormal [facility] Potassium [Moles/Vol] 4.3 mmol/L 3.5 - 5.1 mmol/L [facility] Comment on above: Plasma potassium martín ues may be up to 0.5 mmol/L lower than serum values. Sodium [Moles/Vol] 141 mmol/L 136 - 145 mmol/L [facility] Urea nitrogen [Mass/Vol] 25 mg/dL High 9 - 23 mg/d L [facility] CBC W Auto Differential pane l (Bld)Ordered By: Yair Sanchez on 08-05-2024 Basophils (Bld) [#/Vol] 0 10*3/uL 0.0 - 0.2 10*3/uL [facility] Basophils/100 WBC (Bld) 0.3 % 0.0 - 2.0 % [facility] Eosinophils (Bld) [#/Vol] 0.1 10*3/uL 0.0 - 0.5 10*3/uL [facility] Eosinophils/100 WBC (Bld) 0.6 % 0.0 - 6.0 % [facility] Erythrocyte distribution width (RBC) [Ratio] 13.9 % 11.5 - 15.0 % [facility] Hematocrit (Bld) [Volume fraction] 38.5 % 35.0 - 47.0 % [facility] Hemoglobin (Bld) [Mass/Vol] 12 g/dL 11.7 - 16.0 g/dL [facility] Immature granulocytes (Bld) [#/Vol] 0 10*3/uL NINF - 0.1 10*3/uL [facility] [email or web address] Immature granulocytes/100 WBC (Bld) 0.2 % 0.0 - 2.0 % [facility] Interpretation and review of laboratory results Abnormal [facility] Lymphocytes (Bld) [#/Vol] 1.5 10*3/uL 1.0 - 4.3 10*3/uL [facility] Lymphocytes/100 WBC (Bld) 14.9 % Low 15.0 - 45.0 % [facility] MCH (RBC) [Entitic mass] 31.6 pg 26. 0 - 34.0 pg [facility] MCHC (RBC) [Mass/Vol] 31.2 % 30.5 - 36.0 % [facility] MCV (RBC) [Entitic vol] 101.3 fL High 77.0 - 99.0 fL [facility] Monocytes (Bld) [#/Vol] 1.2 10*3/uL High 0.0 - 0.9 10*3/uL [facility] Monocytes/100 WBC (Bld) 12 % 5.0 - 13.0 % [facility] Neutrophils (Bld) [#/Vol] 7.1 10*3/uL 1.8 - 7.5 10*3/uL [facility] Neutrophils/100 WBC (Bld) 72 % 38.0 - 82.0 % [facility] Nucleated RBC/100 WBC (Bld) [Ratio] 0 % [facility] Platelet mean volume (Bld) [Entitic vol] 9.8 fL 9.0 - 12.7 fL [facility] Platelets (Bld) [#/Vol] 221 10*3/uL 140 - 440 10*3/uL [facility] RBC (Bld) [#/Vol] 3.8 10*6/uL 3.80 - 5.2 0 10*6/uL [facility] WBC (Bld) [#/Vol] 9.9 10*3/uL 3.6 - 10.7 10*3/uL [facility] CBC WITH AUTO DIFFERENTIALon 08-05-2024 Basophils (Bld) [#/Vol] 0.0 10*3/uL Normal 0.0-0.2 [facility] Comment on above: Performed By: #### L [id number] ####Smt Operator: HANS ALCANTARESCOBAR ([phone])[facility] (SBHLAB)[address] Basophils/100 WBC (Bld) 0.3 % Normal 0.0-2.0 [facility] Comment on above: Performed By: #### L [id number] ####Smt Operator: HANS ALCANTARESCOBAR ([phone])[facility] (SBHLAB)[address] Eosinophils (Bld) [#/Vol] 0.1 10*3/uL Normal 0.0-0.5 [facility] Comment on above: Performed By: #### L [id number] ####Smt Operator: HANS WALDROPIVELISSE ([phone])[facility] (SB[facility]AB)[address] Eosinophils/100 WBC (Bld) 0.6 % Normal 0.0-6.0 [facility] Comment on above: Performed By: #### L [id number] ####Smt Operator: HANS ALCANTARESCOBAR ([phone])[facility] ([facility])[address] Erythrocyte distribution width (RBC) [Ratio] 13.9 % Normal 11.5-15.0 [facility] Comment on above: Performed By: #### L [id number] ####Smt Operator: HANS PAULSON ([phone])[facility] ([facility])[address] Hematocrit (Bld) [Volume fraction] 38.5 % Normal 35.0-47.0 [facility] Comment on above: Performed By: #### L [id number] ####Smt Operator: HANS ALCANTARESCOBAR ([phone])[facility] ([facility])[address] Hemoglobin (Bld) [Mass/Vol] 12.0 g/dL Normal 11.7-16.0 [facility] Comment on above: Performed By: #### L [id number] ####Smt Operator: HANS PAULSON ([phone])[facility] ([facility])[address] IMMATURE GRANS % 0.2 % Normal 0.0-2.0 [facility] Comment on above: Performed By: #### L [id number] ####Smt Operator: HANS PAULSON ([phone])[facility] (SBAB)[address] IMMATURE GRANS ABSOLUTE 0.0 10*3/uL Normal <0.1 [facility] Comment on above: Performed By: #### L [id number] ####Smt Operator: HANS PAULSON ([phone])[facility] (SBAB)[address] [place] [address] Lymphocytes (Bld) [#/Vol] 1.5 10*3/uL Normal 1.0-4.3 [facility] Comment on above: Performed By: #### L [id number] ####Smt Operator: HANS PAULSON ([phone])[facility] Lymphocytes/100 WBC (Bld) 14.9 % Low 15.0-45.0 [facility] Comment on above: Performed By: #### L [id number] ####Smt Operator: HANS PAULSON ([phone])[facility] ([facility])[address] MCH (RBC) [Entitic mass] 31.6 pg Normal 26.0-34.0 [facility] Comment on above: Performed By: #### L [id number] ####Smt Operator: HANS PAULSON ([phone])[facility] ([facility])[address] MCHC 31.2 % Normal 30.5-36.0 [facility] Comment on above: Performed By: #### L [id number] ####Smt Operator: HANS PAULSON ([phone])[facility] ([facility])[address] MCV (RBC) [Entitic vol] 101.3 fL High 77.0-99.0 S [facility] Comment on above: Performed By: #### L [id number] ####Smt Operator: HANS PAULSON ([phone])[facility] ([facility])[address] Monocytes (Bld) [#/Vol] 1.2 10*3/uL High 0.0-0.9 [facility] Comment on above: Performed By: #### L [id number] ####Smt Operator: HANS ALCANTARESCOBAR ([phone])[facility] [place] ([facility])[address] Monocytes/100 WBC (Bld) 12.0 % Normal 5.0-13.0 S [facility] Comment on above: Performed By: #### L [id number] ####Smt Operator: HANS WALDROPIVELISSE ([phone])[facility] ([facility]AB)[address] NEUTROPHILS ABSOLUTE 7.1 10*3/uL Normal 1.8-7.5 [facility] Comment on above: Performed By: #### L [id number] ####Smt Operator: HANS PAULSON ([phone])[facility] [place] ([facility])[address] Neutrophils/100 WBC (Bld) 72.0 % Normal 38.0-82.0 [facility] Comment on above: Performed By: #### L [id number] ####Smt Operator: HANS PAULSON ([phone])[facility] [place] ([facility])[address] NRBC 0.0 /100 WBCs Normal 0.0-2.0 [facility] Comment on above: Performed By: #### L [id number] ####Smt Operator: HANS AGUILARCER ([phone])[facility] (SB[facility]AB)[address] Platelet mean volume (Bld) [Entitic vol] 9.8 fL Normal 9.0-12.7 [facility] Comment on above: Performed By: #### L [id number] ####Smt Operator: HANS WALDROPKimESCOBAR ([id number])[facility] [place] (SB[facility])[address] Platelets (Bld) [#/Vol] 221 10*3/uL Normal 140-440 [facility] Comment on above: Performed By: #### L [id number] ####Smt Operator: HANS AGUILARCER ([phone])[facility] (SB[facility])[address] [place] [address] RBC (Bld) [#/Vol] 3.80 10*6/uL Normal 3.80-5.20 [facility] Comment on above: Performed By: #### L [id number] ####Smt Operator: HANS WALDROPIVELISSE ([phone])[facility] ([facility])[address] [place] [address] WBC (Bld) [#/Vol] 9.9 10*3/uL Normal 3.6-10.7 [facility] Comment on above: Performed By: #### L [id number] ####Smt Operator: HANS ALCANTARESCOBAR ([phone])[facility] ([facility])[address] [place] [address] Laboratory - Microbiology an d Antimicrobial susceptibilityOrdered By: Joaquina Andrade on 08-05-2024 Bacteria identified Aer cx Nom (Lower resp) Many respiratory linus present. [facility] Bacteria identified Aer cx Nom (Lower resp) Many Pseudomonas aeruginosa Abnormal [facility] Progress Noteon 08-05-2024 Progress Note Normal [facility] Progress Note Normal [facility] Progress Note Normal [facility] Progress Note Normal [facility] 30on 08-04-2024 30 Normal [facility] 30 Normal [facility] [id number] 08-04-2024 [id number] Normal [facility] [id number] Normal [facility] BASIC METABOLIC PANELon 07-19 Anion gap [Moles/Vol] 6 mmol/L Normal 3-13 [facility] Comment on above: Performed By: #### L [id number] ####Smt Operator: HANS PAULSON ([phone])[facility] [place] ([facility])[address] Calcium [Mass/Vol] 8.4 mg/dL Low 8.8-10.0 [facility] Comment on above: Performed By: #### L AB15 ####Smt Operator: HANS PAULSON ([phone])[facility] [place] ([facility])[address] Chloride [Moles/Vol] 104 mmol/L Normal 98-107 [facility] Comment on above: Performed By: #### L AB15 ####Smt Operator: HANS PAULSON ([phone])[facility] [place] ([facility])[address] CO2 [Moles/Vol] 32 mmol/L High 23-31 [facility] Comment on above: Performed By: #### L AB15 ####Smt Operator: HANS PAULSON ([phone])[facility] [place] ([facility])[address] Creatinine [Mass/Vol] 0.55 mg/dL Low 0.57-1.11 [facility] Comment on above: Performed By: #### L AB15 ####Smt Operator: HANS PAULSON ([id number])[facility] [place] ([facility])[address] GLOMERULAR FILTRATION RATE ML/MIN/1.73 SQ M.PREDICTED >90.0 Normal >60.0 [facility] Comment on above: Result Comment: Calc ulation based on the Chronic Kidney Disease Epidemiology Collaboration (CKD-EPI) equation refit without adjustment for race Performed By: #### L AB15 ####Smt Operator: HANS PAULSON ([id number])[facility] ([facility])[address] [place] [address] Glucose [Mass/Vol] 111 mg/dL Normal 82-115 [facility] Comment on above: Performed By: #### L AB15 ####Smt Operator: HANS PAULSON ([phone])[facility] ([facility])[address] [place] [address] Potassium [Moles/Vol] 4.2 mmol/L Normal 3.5-5.1 [facility] Comment on above: Result Comment: [facility] potassium values may be up to 0.5 mmol/L lower than serum values. Performed By: #### L AB15 ####Smt Operator: HANS PAULSON ([phone])[facility] ([facility])[address] [place] [address] Sodium [Moles/Vol] 142 mmol/L Normal 136-145 [facility] Comment on above: Performed By: #### L AB15 ####Smt Operator: HANS PAULSON ([phone])[facility] (HLAB)[address] [place] [address] Urea nitrogen [Mass/Vol] 26 mg/dL High 9-23 [facility] Comment on above: Performed By: #### L AB15 ####Smt Operator: HANS PAULSON ([phone])[facility] (HLAB)[address] [place] [address] Basic metabolic 1998 panelon 08-04-2024 Anion gap [Moles/Vol] 6 mmol/L 3 - 13 mmol/L [facility] Calcium [Mass/Vol] 8.4 mg/dL Low 8.8 - 10. 0 mg/dL [facility] Chloride [Moles/Vol] 104 mmol/L 98 - 10 7 mmol/L [facility] CO2 [Moles/Vol] 32 mmol/L High 23 - 31 mmol/L [facility] Creatinine [Mass/Vol] 0.55 mg/dL Low 0.57 - 1.11 mg/dL [facility] [email or web address] GFR/1.73 sq M.predicted (S/P/Bld) [Vol rate/Area] - PINF [facility] [email or web address] Comment on above: Calculation based on the Chronic Kidney Disease Epidemiology Collaboration (CKD-EPI) equation refit without adjustment for race Glucose [Mass/Vol] 111 mg/dL 82 - 115 mg/dL [facility] Interpretation and review of laboratory results Abnormal [facility] [email or web address] Potassium [Moles/Vol] 4.2 mmol/L 3.5 - 5.1 mmol/L [facility] [email or web address] Comment on above: Plasma potassium martín ues may be up to 0.5 mmol/L lower than serum values. Sodium [Moles/Vol] 142 mmol/L 136 - 145 mmol/L [facility] [email or web address] Urea nitrogen [Mass/Vol] 26 mg/dL High 9 - 23 mg/d L [facility] [email or web address] CBC W Auto Differential pane l (Bld)on 08-04-2024 Basophils (Bld) [#/Vol] 0 10*3/uL 0.0 - 0.2 10*3/uL [facility] [email or web address] Basophils/100 WBC (Bld) 0.2 % 0.0 - 2.0 % [facility] [email or web address] Eosinophils (Bld) [#/Vol] 0 10*3/uL 0.0 - 0.5 10*3/uL [facility] [email or web address] Eosinophils/100 WBC (Bld) 0.4 % 0.0 - 6.0 % [facility] [email or web address] Erythrocyte distribution width (RBC) [Ratio] 13.8 % 11.5 - 15.0 % [facility] [email or web address] Hematocrit (Bld) [Volume fraction] 32.5 % Low 35.0 - 47.0 % [facility] [email or web address] Hemoglobin (Bld) [Mass/Vol] 10.2 g/dL Low 11.7 - 16.0 g/dL [facility] [email or web address] Immature granulocytes (Bld) [#/Vol] 0 10*3/uL NINF - 0.1 10*3/uL [facility] [email or web address] Immature granulocytes/100 WBC (Bld) 0.4 % 0.0 - 2.0 % [facility] Interpretation and review of laboratory results Abnormal [facility] [email or web address] Lymphocytes (Bld) [#/Vol] 1 10*3/uL 1.0 - 4.3 10*3/uL [facility] [email or web address] Lymphocytes/100 WBC (Bld) 11.8 % Low 15.0 - 45.0 % [facility] MCH (RBC) [Entitic mass] 31.6 pg 26. 0 - 34.0 pg [facility] MCHC (RBC) [Mass/Vol] 31.4 % 30.5 - 36.0 % [facility] MCV (RBC) [Entitic vol] 100.6 fL High 77.0 - 99.0 fL [facility] Monocytes (Bld) [#/Vol] 1 10*3/uL High 0.0 - 0.9 10*3/uL [facility] Monocytes/100 WBC (Bld) 11.6 % 5.0 - 13.0 % [facility] Neutrophils (Bld) [#/Vol] 6.2 10*3/uL 1.8 - 7.5 10*3/uL [facility] Neutrophils/100 WBC (Bld) 75.6 % 38.0 - 82.0 % [facility] Nucleated RBC/100 WBC (Bld) [Ratio] 0 % [facility] Platelet mean volume (Bld) [Entitic vol] 9.6 fL 9.0 - 12.7 fL [facility] Platelets (Bld) [#/Vol] 164 10*3/uL 140 - 440 10*3/uL [facility] RBC (Bld) [#/Vol] 3.23 10*6/uL Low 3.80 - 5.2 0 10*6/uL [facility] WBC (Bld) [#/Vol] 8.2 10*3/uL 3.6 - 10.7 10*3/uL [facility] CBC WITH AUTO DIFFERENTIALon 08-04-2024 Basophils (Bld) [#/Vol] 0.0 10*3/uL Normal 0.0-0.2 [facility] Comment on above: Performed By: #### L [id number] ####Smt Operator: HANS PAULSON ([phone])[facility] ([facility])[address] [place] [address] Basophils/100 WBC (Bld) 0.2 % Normal 0.0-2.0 S [facility] Comment on above: Performed By: #### L [id number] ####Smt Operator: HANS [phone])[facility] (SB[facility])[address] Eosinophils (Bld) [#/Vol] 0.0 10*3/uL Normal 0.0-0.5 [facility] Comment on above: Performed By: #### L [id number] ####Smt Operator: HANS PAULSON ([phone])[facility] (SB[facility])[address] Eosinophils/100 WBC (Bld) 0.4 % Normal 0.0-6.0 [facility] Comment on above: Performed By: #### L [id number] ####Smt Operator: HANS PAULSON ([phone])[facility] ([facility])[address] [place] [address] Erythrocyte distribution width (RBC) [Ratio] 13.8 % Normal 11.5-15.0 [facility] Comment on above: Performed By: #### L [id number] ####Smt Operator: HANS PAULSON ([phone])[facility] [place] [address] Hematocrit (Bld) [Volume fraction] 32.5 % Low 35.0-47.0 [facility] Comment on above: Performed By: #### L [id number] ####Smt Operator: HANS PAULSON ([phone])[facility] [place] [address] Hemoglobin (Bld) [Mass/Vol] 10.2 g/dL Low 11.7-16.0 [facility] Comment on above: Performed By: #### L [id number] ####Smt Operator: HANS PAULSON ([phone])[facility] IMMATURE GRANS % 0.4 % Normal 0.0-2.0 [facility] Comment on above: Performed By: #### L [id number] ####Smt Operator: HANS PAULSON ([phone])[facility] (SBHLAB)[address] IMMATURE GRANS ABSOLUTE 0.0 10*3/uL Normal <0.1 [facility] Comment on above: Performed By: #### L [id number] ####Smt Operator: HANS PAULSON ([phone])[facility] (SB[facility]AB)[address] Lymphocytes (Bld) [#/Vol] 1.0 10*3/uL Normal 1.0-4.3 [facility] Comment on above: Performed By: #### L [id number] ####Smt Operator: HANS PAULSON ([phone])[facility] [place] ([facility])[address] Lymphocytes/100 WBC (Bld) 11.8 % Low 15.0-45.0 [facility] Comment on above: Performed By: #### L [id number] ####Smt Operator: HANS PAULSON ([phone])[facility] [place] ([facility])[address] MCH (RBC) [Entitic mass] 31.6 pg Normal 26.0-34.0 [facility] Comment on above: Performed By: #### L [id number] ####Smt Operator: HANS PAULSON ([phone])[facility] [place] ([facility])[address] MCHC 31.4 % Normal 30.5-36.0 [facility] Comment on above: Performed By: #### L [id number] ####Smt Operator: HANS PAULSON ([phone])[facility] [place] ([facility])[address] MCV (RBC) [Entitic vol] 100.6 fL High 77.0-99.0 S [facility] Comment on above: Performed By: #### L [id number] ####Smt Operator: HANS PAULSON ([id number])[facility] ([facility])[address] Monocytes (Bld) [#/Vol] 1.0 10*3/uL High 0.0-0.9 [facility] Comment on above: Performed By: #### L [id number] ####Smt Operator: HANS PAULSON ([phone])[facility] (SB[facility])[address] Monocytes/100 WBC (Bld) 11.6 % Normal 5.0-13.0 [facility] Comment on above: Performed By: #### L [id number] ####Smt Operator: HANS PAULSON ([phone])[facility] [place] ([facility])[address] NEUTROPHILS ABSOLUTE 6.2 10*3/uL Normal 1.8-7.5 [facility] Comment on above: Performed By: #### L [id number] ####Smt Operator: HANS PAULSON ([phone])[facility] [place] ([facility])[address] Neutrophils/100 WBC (Bld) 75.6 % Normal 38.0-82.0 [facility] Comment on above: Performed By: #### L [id number] ####Smt Operator: HANS PAULSON ([phone])[facility] [place] ([facility])[address] NRBC 0.0 /100 WBCs Normal 0.0-2.0 [facility] Comment on above: Performed By: #### L [id number] ####Smt Operator: HANS PAULSON ([phone])[facility] [place] ([facility])[address] Platelet mean volume (Bld) [Entitic vol] 9.6 fL Normal 9.0-12.7 [facility] Comment on above: Performed By: #### L [id number] ####Smt Operator: HANS PAULSON ([phone])[facility] ([facility])[address] Platelets (Bld) [#/Vol] 164 10*3/uL Normal 140-440 [facility] Comment on above: Performed By: #### L [id number] ####Smt Operator: HANS PAULSON ([id number])[facility] ([facility])[address] RBC (Bld) [#/Vol] 3.23 10*6/uL Low 3.80-5.20 [facility] Comment on above: Performed By: #### L [id number] ####Smt Operator: HANS WALDROPIVELISSE ([phone])[facility] ([facility])[address] WBC (Bld) [#/Vol] 8.2 10*3/uL Normal 3.6-10.7 [facility] Comment on above: Performed By: #### L [id number] ####Smt Operator: HANS PAULSON ([phone])[facility] ([facility])[address] [place] [address] Progress Noteon 08-04-2024 Progress Note Normal [facility] Progress Note Normal [facility] Progress Note Normal [facility] Progress Note Nutrition note -received consult for poor jeri <12 . Jeri is 21 -already being followed by RD. 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 [id number] will need to be completed at the time of discharge. 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 [facility] [id number] Sent updated notes t o [facility] via [employer] per TCC request. Await review and response regarding ability to accept. TCC notified. Normal [facility] [id number] Normal [facility] Progress Noteon [...] [facility] 30 Normal [facility] [id number] 08-02-2024 [id number] Normal [facility] [id number] Normal [facility] Progress Noteon [...] 08-01-2024 30 Normal [facility] [id number] 08-01-2024 [id number] Normal [facility] Consulton 08-01-2024 Consult Normal [facility] PNEUMONIA PCR PANELon 2024 PNEUMONIA PCR PANEL Normal [facility] Comment on above: Performed By: #### L [id number], [id number] ####Smt Operator: AMELIE ELIZABETH ([phone])[address] Progress Noteon 08-01-2024 Progress Note Normal [facility] Progress Note Normal [facility] Progress Note Normal [facility] Progress Note Normal [facility] Progress Note Normal [facility] Progress Note Normal [facility] RESPIRATORY CULTURE AND STAI Non 08-01-2024 RESPIRATORY CULTURE AND STAIN Normal [facility] Comment on above: Performed By: #### L [id number], [id number] ####Smt Operator: AMELIE ELIZABETH ([phone])[facility] (SACLAB)[address] Respiratory pathogens DNA an d RNA panel MILANA+non-probe (Lower resp)Ordered By: Calvin Whittakerin on 08-01-2024 Acinetobacter baumannii complex Not detected Not Detected [facility] Adenovirus Not detected Not Detected [facility] Chlamydia pneumoniae Not detected Not Detected [facility] Enterobacter cloacae complex Not detected Not Detected [facility] Escherichia coli Not detected Not Detected [facility] FLUAV RNA MILANA+non-probe Ql (Lower resp) Not detected Not Detected [facility] FLUBV RNA MILANA+non-probe Ql (Lower resp) Not detected Not Detected [facility] Haemophilus influenzae Not detected Not Detecte d [facility] Human Metapneumovirus Not detected Not Detected [facility] Human Rhinovirus/Enterovirus Not detected Not Detected [facility] Interpretation and review of laboratory results Abnormal [facility] Klebsiella (Enterobacter) aerogenes Not detected Not Detected [facility] ealt Klebsiella oxytoca Not detected Not Detected [facility] Klebsiella pneumoniae Not detected Not Detected [facility] Legionella pneumophila Not detected Not Detecte d [facility] Moraxella catarrhalis Detected Abnormal Not Detected [facility] Mycoplasma pneumoniae Not detected Not Detected [facility] Parainfluenza virus Not detected Not Detected [facility] Proteus spp Not detected Not Detected [facility] Pseudomonas aeruginosa Detected Abnormal Not Detected [facility] RSV RNA MILANA+probe Ql (Resp) Not detected Not Detected [facility] S. agalactiae Org specific cx Ql (Vag fld) Detected Abnormal Not Detected [facility] SARS-CoV-2 (COVID-19) RNA MILANA+non-probe Ql (Nph) Not detected Not Detected [facility] SARS-CoV-2 (COVID-19) RNA MILANA+probe Ql (Unsp spec) Methodology: Multiplex PCR This panel does not test for SARS-CoV-2 (Covid-19). The following antimicrobial resistance gene is reported if the appropriate organism is detected: mecA. The following antimicrobial resistance genes are reported if detected and the appropriate organisms are detected: CTX-M, IMP, KPC, NDM, OXA-48-like, and VIM. [facility] Serratia marcescens Not detected Not Detected [facility] Staphylococcus aureus Not detected Not Detected [facility] Streptococcus pneumoniae Not detected Not Detec tommy [facility] Streptococcus pyogenes Not detected Not Detecte d [facility] [id number] 07-31-2024 [id number] [employer] following case for Discharge Needs. Normal [facility] [id number] 07-31-2024 [id number] Normal [facility] [id number] Normal [facility] CRP [Mass/Vol]on 07-31-2024 Interpretation and review of laboratory results Normal [facility] CT Abdomen and Pelvis WO and [...] Electronically Signed Date/Time: 07/31/2024 4:14 PM [facility] Patient Name: GONZALO DELUCA : 1955 [facility]#: [id number] Exam Date/Time: 07/31/2024 15:25 Procedure: CT CHEST [...] destructive bone lesion or acute fractures. [facility] [facility] Brando Tejada M D - 07/31/2024 Patient Name: [facility]ON[facility] 1955 [id number] Exam Date/Time: 07/31/2024 15:25 Procedure: CT CHEST [...] Electronically Signed Date/Time: 07/31/2024 4:14 PM EDT [facility] Radiology Study observation (narrative) [facility] CT Abdomen and Pelvis WO and W contrast IVOrdered By: Brando Tejada on 07-31-2024 [facility] Work Phone: CT CHEST ABDOMEN PELVIS W CO NTRASTon 07-31-2024 CT CHEST ABDOMEN PELVIS W CONTRAST Normal [facility] Consulton 07-31-2024 Consult Normal [facility] Consult Normal [facility] Consult Normal [facility] Consult Normal [facility] Laboratory - Chemistry and C hemistry - challengeon 07-31-2024 TSH Qn 0.28 m[IU]/L Low [facility] Procalcitonin [Mass/Vol] 0.03 ng/mL NICHOLAS F - 0.07 ng/mL [facility] CRP [Mass/Vol] 1.4 mg/[facility]/L [facility] Procalcitonin [Mass/Vol]on 0 07-31-2024 Interpretation and review of laboratory results Normal [facility] PCT <0.50 = Low risk of severe sepsis and/or septic shock. PCT >2.00 = High risk of severe sepsis and/or septic shock. [facility] Progress Noteon 07-31-2024 Progress Note Normal [facility] Progress Note Normal [facility] Progress Note Normal [facility] Progress [facility] Normal [facility] Progress Note Normal [facility] Progress Note Normal [facility] RESPIRATORY PATHOGENS PANEL BY PCRon 07-31-2024 RESPIRATORY PATHOGENS PANEL BY PCR Normal [facility] Comment on above: Performed By: #### L [id number] ####Smt Operator: AMELIE ELIZABETH ([phone])[facility] ([facility])[address] [place] [address] Respiratory pathogens DNA an d RNA panel MILANA+non-probe (Nph)on 07-31-2024 Adenovirus Not detected Not Detected [facility] B. pertussis DNA MILANA+probe Ql (Unsp spec) Not detected Not Detected [facility] ealt Bordetella parapertussis Not detected Not Detec tommy [facility] Chlamydia pneumoniae Not detected Not Detected [facility] Coronavirus 229E Not detected Not Detected [facility] Coronavirus HKU1 Not detected Not Detected [facility] Coronavirus NL63 Not detected Not Detected [facility] Coronavirus OC43 Not detected Not Detected [facility] FLUAV RNA MILANA+non-probe Ql (Nph) Not detected Not Detected [facility] FLUBV RNA MILANA+non-probe Ql (Nph) Not detected Not Detected [facility] Human Metapneumovirus Not detected Not Detected [facility] Human Rhinovirus/Enterovirus Not detected Not Detected [facility] Interpretation and review of laboratory results Normal [facility] Mycoplasma pneumoniae Not detected Not Detected [facility] Parainfluenza 1 Not detected Not Detected [facility] Parainfluenza 2 Not detected Not Detected [facility] Parainfluenza 3 Not detected Not Detected [facility] Parainfluenza 4 Not detected Not Detected [facility] Respiratory Syncytial Virus Not detected Not Detected [facility] SARS-CoV-2 (COVID-19) RNA MILANA+non-probe Ql (Nph) Not detected Not Detected [facility] Methodology: Multipl ex PCR [facility] TSH Qnon 07-31-2024 Interpretation and review of laboratory results Abnormal [facility] BASIC METABOLIC PANELon 07-19 Anion gap [Moles/Vol] 4 mmol/L Normal - [facility] Comment on above: Performed By: #### L AB99, [id number], LAB69, LAB15, ZRI548, LAB67, ABR520, LAB20, [id number] ####Smt Operator: HANS PAULSON ([phone])[facility]ENTERNorma [facility] (SBHLAB)[address] Calcium [Mass/Vol] 8.8 mg/dL Normal 8.8-10.0 [facility] Comment on above: Performed By: #### L AB99, [id number], LAB69, LAB15, IOI448, LAB67, LNC606, LAB20, [id number] ####Smt Operator: HANS PAULSON ([phone])[facility] JOSE CAR[facility]HON[facility] (SBHLAB)[address] Chloride [Moles/Vol] 103 mmol/L Normal 98-107 [facility] Comment on above: Performed By: #### L AB99, XAR995, LAB69, LAB15, JAV646, LAB67, XXW338, LAB20, [id number] ####Smt Operator: HANS PAULSON ([phone])[facility]ENTERNorma [facility] (SBHLAB)[address] CO2 [Moles/Vol] 37 mmol/L High 23-31 [facility] Comment on above: Performed By: #### L AB99, MHR058, LAB69, LAB15, UEM362, LAB67, ETO225, LAB20, [id number] ####Smt Operator: HANS PAULSON ([phone])[facility] (SBHLAB)[address] Creatinine [Mass/Vol] 0.63 mg/dL Normal 0.57-1.11 [facility] Comment on above: Performed By: #### L AB99, IOH251, LAB69, LAB15, ASB838, LAB67, DIL395, LAB20, [id number] ####Smt Operator: HANS PAULSON ([phone])[facility] (SBHLAB)[address] GLOMERULAR FILTRATION RATE ML/MIN/1.73 SQ M.PREDICTED >90.0 Normal >60.0 [facility] Comment on above: Result Comment: Calc ulation based on the Chronic Kidney Disease Epidemiology Collaboration (CKD-EPI) equation refit without adjustment for race Performed By: #### L AB99, UAK822, LAB69, LAB15, YYV479, LAB67, VZP826, LAB20, [id number] ####Smt Operator: HANS PAULSON ([phone])[facility] ([facility])[address] [place] [address] Glucose [Mass/Vol] 80 mg/dL Low 82-115 [facility] Comment on above: Performed By: #### L AB99, ONH032, LAB69, LAB15, EYA241, LAB67, AUO887, LAB20, [id number] ####Smt Operator: HANS PAULSON ([phone])[facility] ([facility])[address] [place] [address] Potassium [Moles/Vol] 5.0 mmol/L Normal 3.5-5.1 [facility] Comment on above: Result Comment: [facility] potassium values may be up to 0.5 mmol/L lower than serum values. Performed By: #### L AB99, UJD672, LAB69, LAB15, HFI581, LAB67, MVN482, LAB20, [id number] ####Smt Operator: HANS PAULSON ([phone])[facility] ([facility])[address] [place] [address] Sodium [Moles/Vol] 144 mmol/L Normal 136-145 [facility] Comment on above: Performed By: #### L AB99, UMK775, LAB69, LAB15, DIR130, LAB67, CAG841, LAB20, [id number] ####Smt Operator: HANS PAULSON ([phone])[facility] ([facility])[address] [place] [address] Urea nitrogen [Mass/Vol] 16 mg/dL Normal 9-23 [facility] Comment on above: Performed By: #### L AB99, ZNH626, LAB69, LAB15, PXJ917, LAB67, SLE792, LAB20, [id number] ####Smt Operator: HANS PAULSON ([phone])[facility] JULITO (SBHLAB)[address] [place] [address] Basic metabolic 1998 panelon 07-30-2024 Anion gap [Moles/Vol] 4 mmol/L 3 - 13 mmol/L [facility] Calcium [Mass/Vol] 8.8 mg/dL 8.8 - 10. 0 mg/dL [facility] Chloride [Moles/Vol] 103 mmol/L 98 - 10 7 mmol/L [facility] CO2 [Moles/Vol] 37 mmol/L High 23 - 31 mmol/L [facility] Creatinine [Mass/Vol] 0.63 mg/dL 0.57 - 1.11 mg/dL [facility] GFR/1.73 sq M.predicted (S/P/Bld) [Vol rate/Area] - PINF [facility] Comment on above: Calculation based on the Chronic Kidney Disease Epidemiology Collaboration (CKD-EPI) equation refit without adjustment for race Glucose [Mass/Vol] 80 mg/dL Low 82 - 115 mg/dL [facility] Potassium [Moles/Vol] 5 mmol/L 3.5 - 5.1 mmol/L [facility] Comment on above: Plasma potassium martín ues may be up to 0.5 mmol/L lower than serum values. Sodium [Moles/Vol] 144 mmol/L 136 - 145 mmol/L [facility] Urea nitrogen [Mass/Vol] 16 mg/dL 9 - 23 mg/d L [facility] C-REACTIVE PROTEINon 025 CRP [Mass/Vol] 1.4 mg/L Normal <5.0 [facility] Comment on above: Performed By: #### L AB99, CHB077, LAB69, LAB15, WJM832, LAB67, WMR497, LAB20, [id number] ####Smt Operator: HANS PAULSON ([phone])[facility] [place] (SBHLAB)[address] CBC W Auto Differential pane l (Bld)Ordered By: Eh Alves on 07-30-2024 Basophils (Bld) [#/Vol] 0 10*3/uL 0.0 - 0.2 10*3/uL [facility] Basophils/100 WBC (Bld) 0.4 % 0.0 - 2.0 % [facility] Eosinophils (Bld) [#/Vol] 0.2 10*3/uL 0.0 - 0.5 10*3/uL [facility] Eosinophils/100 WBC (Bld) 2.7 % 0.0 - 6.0 % [facility] Erythrocyte distribution width (RBC) [Ratio] 13.4 % 11.5 - 15.0 % [facility] Hematocrit (Bld) [Volume fraction] 37 % 35.0 - 47.0 % [facility] Hemoglobin (Bld) [Mass/Vol] 11.2 g/dL Low 11.7 - 16.0 g/dL [facility] Immature granulocytes (Bld) [#/Vol] 0 10*3/uL NINF - 0.1 10*3/uL [facility] Immature granulocytes/100 WBC (Bld) 0.3 % 0.0 - 2.0 % [facility] Interpretation and review of laboratory results Abnormal [facility] Lymphocytes (Bld) [#/Vol] 1 10*3/uL 1.0 - 4.3 10*3/uL [facility] Lymphocytes/100 WBC (Bld) 10.7 % Low 15.0 - 45.0 % [facility] MCH (RBC) [Entitic mass] 31.3 pg 26. 0 - 34.0 pg [facility] MCHC (RBC) [Mass/Vol] 30.3 % Low 30.5 - 36.0 % [facility] MCV (RBC) [Entitic vol] 103.4 fL High 77.0 - 99.0 fL [facility] Monocytes (Bld) [#/Vol] 0.5 10*3/uL 0.0 - 0.9 10*3/uL [facility] Monocytes/100 WBC (Bld) 5.5 % 5.0 - 13.0 % [facility] Neutrophils (Bld) [#/Vol] 7.2 10*3/uL 1.8 - 7.5 10*3/uL [facility] Neutrophils/100 WBC (Bld) 80.4 % 38.0 - 82.0 % [facility] Nucleated RBC/100 WBC (Bld) [Ratio] 0 % [facility] Platelet mean volume (Bld) [Entitic vol] 9.5 fL 9.0 - 12.7 fL [facility] Platelets (Bld) [#/Vol] 225 10*3/uL 140 - 440 10*3/uL [facility] RBC (Bld) [#/Vol] 3.58 10*6/uL Low 3.80 - 5.2 0 10*6/uL [facility] WBC (Bld) [#/Vol] 8.9 10*3/uL 3.6 - 10.7 10*3/uL [facility] CBC WITH AUTO DIFFERENTIALon 07-30-2024 Basophils (Bld) [#/Vol] 0.0 10*3/uL Normal 0.0-0.2 [facility] Comment on above: Performed By: #### L [id number] ####Smt Operator: HANS PAULSON ([phone])[facility] (SBAB)[address] [place] [address] Basophils/100 WBC (Bld) 0.4 % Normal 0.0-2.0 S [facility] Comment on above: Performed By: #### L [id number] ####Smt Operator: HANS PAULSON ([phone])[facility] (SBAB)[address] [place] [address] [place] Eosinophils (Bld) [#/Vol] 0.2 10*3/uL Normal 0.0-0.5 [facility] Comment on above: Performed By: #### L [id number] ####Smt Operator: HANS PAULSON ([phone])[facility] (SBHL[facility])[address] [place] [address] Eosinophils/100 WBC (Bld) 2.7 % Normal 0.0-6.0 [facility] Comment on above: Performed By: #### L [id number] ####Smt Operator: HANS PAULSON ([phone])[facility] (SBHLAB)[address] [place] [address] Erythrocyte distribution width (RBC) [Ratio] 13.4 % Normal 11.5-15.0 [facility] Comment on above: Performed By: #### L [id number] ####Smt Operator: HANS PAULSON ([phone])[facility] [place] (SBHLAB)[address] [place] [address] Hematocrit (Bld) [Volume fraction] 37.0 % Normal 35.0-47.0 [facility] Comment on above: Performed By: #### L [id number] ####Smt Operator: HANS LORENE ([phone])[facility] [place] [address] Hemoglobin (Bld) [Mass/Vol] 11.2 g/dL Low 11.7-16.0 [facility] Comment on above: Performed By: #### L [id number] ####Smt Operator: HANS PAULSON ([phone])[facility] [employer] [facility] ([facility] [place] [address] IMMATURE GRANS % 0.3 % Normal 0.0-2.0 [facility] Comment on above: Performed By: #### L [id number] ####Smt Operator: HANS PAULSON ([phone])[facility] [employer] [facility] ([facility])[address] [place] [address] IMMATURE GRANS ABSOLUTE 0.0 10*3/uL Normal <0.1 [facility] Comment on above: Performed By: #### L [id number] ####Smt Operator: HANS LORENE ([phone])[facility] ([facility])[address] [place] [address] Lymphocytes (Bld) [#/Vol] 1.0 10*3/uL Normal 1.0-4.3 [facility] Comment on above: Performed By: #### L [id number] ####Smt Operator: HANS LORENE ([phone])[facility] ([facility])[address] [place] [address] Lymphocytes/100 WBC (Bld) 10.7 % Low 15.0-45.0 [facility] Comment on above: Performed By: #### L [id number] ####Smt Operator: HANS WALDROPKimESCOBAR ([phone])[place] (SBHLAB)[address] MCH (RBC) [Entitic mass] 31.3 pg Normal 26.0-34.0 [facility] Comment on above: Performed By: #### L [id number] ####Smt Operator: HANS LORENE ([phone])[facility]orm[facility] [place] (SBHLAB)[address] MCHC 30.3 % Low 30.5-36.0 [facility] Comment on above: Performed By: #### L [id number] ####Smt Operator: HANS LORENE ([phone])[facility] [place] (SBHLAB)[address] [place] [address] MCV (RBC) [Entitic vol] 103.4 fL High 77.0-99.0 S [facility] Comment on above: Performed By: #### L [id number] ####Smt Operator: HANS ALCANTARESCOBAR ([phone])[facility] [place] (SBHLAB)[address] Monocytes (Bld) [#/Vol] 0.5 10*3/uL Normal 0.0-0.9 [facility] Comment on above: Performed By: #### L [id number] ####Smt Operator: HANS PAULSON ([phone])[facility]orm[facility] [place] (SBHLAB)[address] Monocytes/100 WBC (Bld) 5.5 % Normal 5.0-13.0 S [facility] Comment on above: Performed By: #### L [id number] ####Smt Operator: HANS ALCANTARESCOBAR ([id number])[facility]ENTERNorma [facility] (SBHLAB)[address] NEUTROPHILS ABSOLUTE 7.2 10*3/uL Normal 1.8-7.5 [facility] Comment on above: Performed By: #### L [id number] ####Smt Operator: HANS WALDROPKimESCOBAR ([phone])[facility] [place] (SBHLAB)[address] Neutrophils/100 WBC (Bld) 80.4 % Normal 38.0-82.0 [facility] Comment on above: Performed By: #### L [id number] ####Smt Operator: HANS LORENE ([phone])[facility] (SBHLAB)[address] NRBC 0.0 /100 WBCs Normal 0.0-2.0 [facility] Comment on above: Performed By: #### L [id number] ####Smt Operator: HANS LORENE ([phone])[facility] [employer] [facility] (SBHL[facility])[address] Platelet mean volume (Bld) [Entitic vol] 9.5 fL Normal 9.0-12.7 [facility] Comment on above: Performed By: #### L [id number] ####Smt Operator: HANS LORENE ([phone])[facility]ENTERNorma [facility]CH[facility]IM[facility] (SBHLAB)[address] Platelets (Bld) [#/Vol] 225 10*3/uL Normal 140-440 [facility] Comment on above: Performed By: #### L [id number] ####Smt Operator: HANS ALCANTARESCOBAR ([phone])[facility] [employer] [facility] [facility] (SBHLAB)[address] RBC (Bld) [#/Vol] 3.58 10*6/uL Low 3.80-5.20 [facility] Comment on above: Performed By: #### L [id number] ####Smt Operator: HANS ALCANTARESCOBAR ([phone])[facility] [employer] [facility] [facility] (SBHLAB)[address] WBC (Bld) [#/Vol] 8.9 10*3/uL Normal 3.6-10.7 [facility] Comment on above: Performed By: #### L [id number] ####Smt Operator: HANS PAULSON ([phone])[facility] [place] (SBHLAB)[address] [place] [address] DARIANOVanna 07-30-2024 CNOV Office Visit (FAMDNA ) GONZALO DELUCA ([id number]) 1955 F Date Time Provider Department 07/30/24 3:00 PM HERMINIA CASE During your visit today, we recorded the following information about you: Temperature Pulse Blood pressure Weight 98.4 degrees 106/minute 120/78 40.6 kg Height 1.641 m Herminia Case MD 07/30/2024 4:33 PM Signed 07/30/2024 Recording using InstallFree software for draft documentation of the visit was discussed with the patient/authorized personnel representative; all questions welcomed and answered. Patient/authorized personnel representative agreed to proceed HPI: Gonzalo is [...] Psychiatric: ( (more content not included)... Normal [facility] COMPLETE URINALYSIS WITH REF FAMILIA TO [facility] 07-30-2024 AMORPHOUS CRYSTALS (#/HPF) IN URINE Many Abnormal Negative [facility] Comment on above: Performed By: #### L [id number] ####Smt Operator: HANS PAULSON ([phone])[facility] (SBHLAB)[address] [place] [address] BACTERIA (#/HPF) IN URINE Negative Normal Negative [facility] Comment on above: Performed By: #### L [id number] ####Smt Operator: HANS PAULSON ([phone])[facility] (SBHLAB)[address] [place] [address] BILIRUBIN, TOTAL PRESENCE IN URINE Negative Normal Negative [facility] Comment on above: Performed By: #### L [id number] ####Smt Operator: HANS PAULSON ([phone])[facility] [place] (SBHLAB)[address] Clarity (U) Turbid Abnormal Clear [facility] Comment on above: Performed By: #### L [id number] ####Smt Operator: HANS WALDROPKimESCOBAR ([phone])[facility] (SBHLAB)[address] Color (U) Yellow Normal Lt. Yellow [facility] Comment on above: Performed By: #### L [id number] ####Smt Operator: HANS PAULSON ([phone])[facility] (SBHLAB)[address] GLUCOSE (MG/DL) IN URINE Normal Normal Normal (<70 ) [facility] Comment on above: Performed By: #### L [id number] ####Smt Operator: HANS PAULSON ([phone])[facility] (SBHLAB)[address] HEMOGLOBIN PRESENCE IN URINE Negative Normal Negative [facility] Comment on above: Performed By: #### L [id number] ####Smt Operator: HANS PAULSON ([id number])[facility] (HLAB)[address] HYALINE CASTS (#/LPF) IN URINE SEDIMENT BY MICROSCOPY 0-2 Abnormal Negative [facility] Comment on above: Performed By: #### L [id number] ####Smt Operator: HANS PAULSON ([id number])[facility] (SBHLAB)155 [place] [address] [place] Ketones Ql (U) Negative Normal Negative [facility] Comment on above: Performed By: #### L [id number] ####Smt Operator: HANS PAULSON ([id number])[facility] (SBHLAB)[address] LEUKOCYTE ESTERASE PRESENCE IN URINE BY TEST STRIP 25 Sandra/uL Abnormal Negative [facility] Comment on above: Performed By: #### L [id number] ####Smt Operator: HANS ALCANTARESCOBAR ([id number])[facility] [place] (SBHLAB)155 [place] [address] [place] MUCUS (#/LPF) IN URINE SEDIMENT Few Normal Negative [facility] Comment on above: Performed By: #### L [id number] ####Smt Operator: HANS WADLROPBOOESCOBAR ([id number])[facility] [place] (SBHLAB)[address] NITRITE PRESENCE IN URINE Negative Normal Negative [facility] Comment on above: Performed By: #### L [id number] ####Smt Operator: HANS WALDROPIVELISSE ([id number])[facility] [place] (SBHLAB)[address] pH (U) 7.5 [pH] Normal 5.0-8.0 [facility] Comment on above: Performed By: #### L [id number] ####Smt Operator: HANS ALCANTARESCOBAR ([id number])[facility] (SB[facility]AB)[address] Protein (U) [Mass/Vol] 10 mg/dL Abnormal Negative [facility] Comment on above: Performed By: #### L [id number] ####Smt Operator: HANS ALCANTARESCOBAR ([id number])[facility] (SBHLAB)[address] [place] [address] [place] RBC (#/HPF) IN URINE SEDIMENT 0-2 Normal 0-2 [facility] Comment on above: Performed By: #### L [id number] ####Smt Operator: HANS WALDROPBOOESCOBAR ([id number])[facility] (SBHLAB)[address] Specific gravity (U) [Rel density] 1.023 Normal 1.005-1.030 [facility] Comment on above: Result Comment: KYM R COMMENTS:A specimen with <=10 WBC is not consistent with inflammation. This specimen will not reflex to a urine culture. Performed By: #### L [id number] ####Smt Operator: HANS PAULSON ([id number])[facility] [place] (SBHLAB)[address] SQUAMOUS EPITHELIAL CELLS (#/HPF) IN URINE SEDIMENT 0-2 Normal 3-5 [facility] Comment on above: Performed By: #### L [id number] ####Smt Operator: HANS PAULSON ([id number])[facility] [place] (SBHLAB)[address] UROBILINOGEN (MG/DL) IN URINE Normal Normal Normal (0-1) [facility] Comment on above: Performed By: #### L [id number] ####Smt Operator: HANS PAULSON ([id number])[facility] [place] (SBHLAB)[address] [place] [address] WBC (LEUKOCYTE) (#/HPF) IN URINE SEDIMENT 3-5 Normal 0-5 [facility] Comment on above: Performed By: #### L [id number] ####Smt Operator: HANS PAULSON ([id number])[facility] (SBHLAB)[address] [place] [address] Cobalamin (Vitamin B12) [Mas s/Vol]on 07-30-2024 Interpretation and review of laboratory results Normal [facility] ECG 12-LEADon 07-30-2024 ECG 12-LEAD IMPRESSION: Sinus rhythm Left axis deviation Electronically Signed On 07-30-2024 21:23:27 EDT by Evelio Sterling Normal [facility] ED Provider Noteon ED Provider Note Normal [facility] FOLATEon 07-30-2024 FOLATE RESULT 5.2 ng/mL Low 7.0-31.4 [facility] Comment on above: Performed By: #### L AB99, [id number], LAB69, LAB15, ZUD117, LAB67, MIU563, LAB20, [id number] ####Smt Operator: HANS PAULSON ([id number])[facility] [place] (SBHLAB)[address] [place] [address] [place] Folate [Mass/Vol]on 07-31-19 Interpretation and review of laboratory results Abnormal [facility] HEPATIC FUNCTION PANELon Albumin [Mass/Vol] 3.0 g/dL Low 3.4-4.8 [facility] Comment on above: Performed By: #### L AB99, ZZS619, LAB69, LAB15, BZG234, LAB67, IHR312, LAB20, [id number] ####Smt Operator: HANS PAULSON ([id number])[facility] (SBHLAB)[address] ALP [Catalytic activity/Vol] 97 U/L Normal 40-150 [facility] Comment on above: Performed By: #### L AB99, RCF572, LAB69, LAB15, DXE703, LAB67, LZX591, LAB20, [id number] ####Smt Operator: HANS PAULSON ([id number])[facility] (SBHLAB)[address] ALT [Catalytic activity/Vol] 10 U/L Normal <30 [facility] Comment on above: Performed By: #### L AB99, VJE881, LAB69, LAB15, GML825, LAB67, YTS904, LAB20, [id number] ####Smt Operator: HANS PAULSON ([id number])[facility] ([facility] [place] [address] AST [Catalytic activity/Vol] 21 U/L Normal <34 [facility] Comment on above: Performed By: #### L AB99, CSU859, LAB69, LAB15, RJT230, LAB67, EAL755, LAB20, [id number] ####Smt Operator: HANS PAULSON ([id number])[facility] ([facility] Bilirubin [Mass/Vol] 0.2 mg/dL Normal <1.2 [facility] Comment on above: Performed By: #### L AB99, FZE243, LAB69, LAB15, NZJ724, LAB67, OZE675, LAB20, [id number] ####Smt Operator: HANS PAULSON ([id number])[facility] (SBHLAB)[address] [place] [address] Bilirubin.indirect [Mass/Vol] 0.1 mg/dL Normal <0.5 [facility] Comment on above: Performed By: #### L AB99, FSB668, LAB69, LAB15, IZQ033, LAB67, KST324, LAB20, [id number] ####Smt Operator: HANS PAULSON ([id number])[facility] (SBAB)[address] [place] [address] Protein [Mass/Vol] 6.5 g/dL Normal 6.4-8.3 [facility] Comment on above: Result Comment: Seru m protein values are higher than plasma values. Samples from recumbent persons are lower by up to 0.5 g/dL as compared to ambulatory persons. After 60 years values are lower by up to 0.2 g/dL. Performed By: #### L AB99, SMG153, LAB69, LAB15, QEH356, LAB67, HWN932, LAB20, [id number] ####Smt Operator: HANS PAULSON ([id number])[facility] ([facility])[address] [place] [address] Hepatic function 2000 panelo n 07-30-2024 Albumin [Mass/Vol] 3 g/dL Low 3.4 - 4.8 g/dL [facility] ALP [Catalytic activity/Vol] 97 U/L 40 - 150 U/L [facility] ALT [Catalytic activity/Vol] 10 U/L [facility] U[facility]L [facility] AST [Catalytic activity/Vol] 21 U/L [facility] - [facility] U/L [facility] [email or web address] Bilirubin [Mass/Vol] 0.2 mg/dL [facility] - 1.[facility] mg/dL [facility] Bilirubin.conjugated [Mass/Vol] 0.1 mg/dL [facility] - 0.5 mg/dL [facility] Protein [Mass/Vol] 6.5 g/dL 6.4 - 8.3 g/dL [facility] Comment on above: Serum protein values are higher than plasma values. Samples from recumbent persons are lower by up to 0.5 g/dL as compared to ambulatory persons. After 60 years values are lower by up to 0.2 g/dL. LIPASEon 07-30-2024 Lipase [Catalytic activity/Vol] 18 U/L Normal <55 [facility] Comment on above: Performed By: #### L AB99, SRO533, LAB69, LAB15, FTK955, LAB67, HHT688, LAB20, [id number] ####Smt Operator: HANS PAULSON ([id number])[facility] (SBHLAB)[address] Laboratory - Chemistry and C hemistry - challengeon 07-30-2024 Folate [Mass/Vol] 5.2 ng/mL Low 7.0 - 31.4 ng/mL [facility] Cobalamin (Vitamin B12) [Mass/Vol] 639 pg/mL 213 - 816 pg/mL [facility] Lipase [Catalytic activity/Vol] 18 U/L NINF - 55 U/L [facility] Magnesium [Mass/Vol] 1.9 mg/dL 1.6 - 2 .6 mg/dL [facility] MAGNESIUMon 07-30-2024 Magnesium [Mass/Vol] 1.9 mg/dL Normal 1.6-2.6 [facility] Comment on above: Result Comment: KYM Gilmore COMMENTS:Higher values can be expected in females during menses. Performed By: #### L AB99, ZZJ770, LAB69, LAB15, GFV512, LAB67, UDD957, LAB20, [id number] ####Smt Operator: HANS PAULSON ([id number])[facility] (SBHLAB)[address] Magnesium [Mass/Vol]on 07-30 Higher values can be expected in females during menses. [facility] [email or web address] No Panel InformationOrdered By: Evelio Sterling on 07-30-2024 P Hammond 53 degrees [facility] [email or web address] Work Phone: AR Interval 137 ms [facility] [email or web address] Work Phone: QRS Hammond -35 degrees [facility] [email or web address] Work Phone: QRSD Interval 99 ms [employer] Work Phone: QT Interval 350 ms [employer] Work Phone: QTC Interval 439 ms [employer] Work Phone: T Wave Hammond 43 degrees [employer] Work Phone: [facility] Work Phone: No Panel Informationon 07-30 Sinus rhythm Left axis deviation Electronically Signed On 07-30-2024 21:23:27 EDT by Evelio Reyez DO - 07/30/2024 IMPRESSION: Sinus rhythm Left axis deviation Electronically Signed On 07-30-2024 21:23:27 EDT by Evelio Sterling [facility] [email or web address] Interpretation and review of laboratory results Abnormal [facility] Interpretation and review of laboratory results Normal [facility] [email or web address] [facility] [email or web address] Luis E Keating DO 07/30/2024 9:53 PM Splint Application Performed by: Luis E Keating DO Authorized by: Luis E Keating DO Consent: Consent obtained: Verbal Consent given by: Patient Risks, benefits, and alternatives were discussed: yes Risks discussed: Pain, numbness and swelling Alternatives discussed: Delayed treatment and referral Wilber protocol: Patient identity confirmed: Verbally with patient [...] no immediate complications Post-procedure imaging: not applicable [facility] PROCALCITONIN TESTon 025 PROCALCITONIN 0.03 ng/mL Normal <0.07 [employer] [facility] Comment on above: Result Comment: KYM R COMMENTS:PCT <0.50 = Low risk of severe sepsis and/or septic shock.PCT >2.00 = High risk of severe sepsis and/or septic shock. Performed By: #### L AB99, RLE707, LAB69, LAB15, OEL780, LAB67, PAE121, LAB20, [id number] ####Smt Operator: HANS PAULSON ([phone])[facility] (SBHLAB)[address] [place] [address] THYROID STIMULATING HORMONEo n 07-30-2024 THYROID STIMULATING HORMONE 0.28 uIU/mL Low 0.35-4.94 [facility] Comment on above: Performed By: #### L AB99, YXY424, LAB69, LAB15, CLA960, LAB67, UCK949, LAB20, [id number] ####Smt Operator: HANS PAULSON ([id number])[facility] (SBHLAB)[address] [place] [address] Urinalysis complete panel (U )on 07-30-2024 Amorphous Crystals, Urine Many Abnormal Negative /HPF [facility] Bacteria LM.HPF (Urine sed) [#/Area] Negative Negative /HPF [facility] Bilirubin Ql (U) Negative Negative mg/dL [facility] Clarity (U) Turbid Abnormal Clear [facility] Color (U) Yellow Lt. Yellow [facility] Epithelial cells.squamous LM.HPF (Urine sed) [#/Area] 0-2 [facility] Glucose Ql (U) Normal Normal (<70) mg/dL [facility] Hemoglobin Ql (U) Negative Negative mg/dL [facility] Hyaline casts Auto (Urine sed) [#/Area] 0-2 Abnormal Negative /LPF [facility] Interpretation and review of laboratory results Abnormal [facility] Ketones (U) [Mass/Vol] Negative Negat kenton mg/dL [facility] Leukocyte esterase Test strip Ql (U) 25 Abnormal Negative Sandra/uL [facility] Mucus LM.HPF (Urine sed) [#/Area] Few Negative /LPF [facility] Nitrite Ql (U) Negative Negative [facility] th pH (U) 7.5 [pH] 5.0 - 8.0 pH [facility] Protein (U) [Mass/Vol] 10 mg/dL Abnormal Negative [facility] RBC LM.HPF (Urine sed) [#/Area] 0-2 [facility] Specific gravity (U) [Rel density] 1.023 1.005 - 1.030 [facility] Urobilinogen (U) [Mass/Vol] Normal Normal (0-1) mg/dL [facility] WBC LM.HPF (Urine sed) [#/Area] 3-5 [facility] A specimen with <=10 WBC is not consistent with inflammation. This specimen will not reflex to a urine culture. [facility] VITAMIN B12on 07-30-2024 Cobalamin (Vitamin B12) [Mass/Vol] 639 pg/mL Normal 213-816 [facility] Comment on above: Performed By: #### L AB99, EDN363, LAB69, LAB15, MNY329, LAB67, TNA026, LAB20, [id number] ####Smt Operator: HANS PAULSON ([id number])[facility] ([facility])[address] [place] [address] Vital signsOrdered By: Evelio Sterling on 07-30-2024 Heart rate 95 /min bpm [facility] Work Phone: XR Chest Single viewon 07-30 No acute cardiopulmonary abnormality identified. Chronic appearing lung changes. Report Dictated on Electronically Signed By: Honorio Andino MD Electronically Signed Date/Time: 07/30/2024 5:42 PM EDT [facility] Patient Name: GONZALO DELUCA : [...] Bones are osteopenic. Other findings: None. [facility] Honorio Andino MD - 07/30/2024 [...] Electronically Signed Date/Time: 07/30/2024 5:42 PM EDT [facility] Radiology Study observation (narrative) [facility] alth XR Elbow - left 2 Viewson Acute, obliquely oriented, slightly displaced and impacted fracture through the supracondylar region of the left elbow with associated soft tissue swelling. Report Dictated on Electronically Signed By: Honorio Andino MD Electronically Signed Date/Time: 07/30/2024 5:46 PM EDT [facility] Patient Name: GONZALO DELUCA : [...] are osteopenic. No radiopaque foreign body. [facility] Honorio Andino MD - 07/30/2024 Patient Name: GONZALO DELUCA [facility] 1955 [id number] Exam Date/Time: 07/30/2024 17:32 Procedure: XR ELBOW [...] Electronically Signed Date/Time: 07/30/2024 5:46 PM EDT [facility] Radiology Study observation (narrative) [facility] El[facility] - left 2 ViewsOrder ed By: Honorio Andino on 07-30-2024 [facility] Work Phone: Progress Noteon 07-24-2024 Progress Note Call placed to patient, no show for port flush appointment today. LVM to return call to get rescheduled. Normal [facility]Non [facility]20[facility]ON[facility] ([id number]) 1955 F Date Time Provider Department 06/30/24 HERMINIA CASE During your visit today, we recorded the following information about you: Whit Shay LPN 06/30/2024 10:14 AM Signed Type of letter/form/fax request - Assisted living orders Form received from [facility] on 06/29/24 floor and placed on MD desk () for completion. Completed form needs to be faxed to [phone]. Route to [place] when form completed for processing Leona Castañeda APRN.NADEEM 07/02/2024 2:33 PM Signed Orders signed and in outbox. Please fax. Thank you, Leona Castañeda APRN.Whit Munguia LPN 07/02/2024 2:54 PM Signed Request completed and faxed. Allergies As of Date: 06/30/2024 Noted Allergy Reaction SEASONAL ALLERGIES 08/16/2017 5 - Intolerance Date Reviewed: 12/30/2023 Reviewed by: Joaquina Martinez APRN.[facility] - Fully Assessed Reason for Visit: [...] Encounter Status:Closed by WHIT SHAY on 07/02/24 [facility] CNPNon 06-07-2024 CNPN Telephone (HCSIND) GONZALO DELUCA ([id number]) 1955 F Date Time Provider Department 06/07/24 [...] Signed Yes it is, thank you. Jessica iLnn LPN 06/10/2024 8:38 AM Signed Herminia Case MD, [facility] received a referral for [facility] services. We have made several attempts [...] Date Reviewed: 12/30/2023 Reviewed by: Joaquina Martinez APRN.[facility] - Fully Assessed Reason for Visit: Home [...] hysterectomy [Z90.710] (more content not included)... [facility] ([id number]) 1955 F Date Time Provider Department 06/07/24 MADDI VALERO HCSIND During your visit today, we recorded the following information about you: Allergies As of Date: 06/07/2024 Noted Allergy Reaction SEASONAL ALLERGIES 08/16/2017 5 - Intolerance Date Reviewed: 12/30/2023 Reviewed by: Joaquina Martinez APRN.[facility] - Fully Assessed Reason for Visit: [...] Encounter Status:Closed by MADDI VALERO on 06/07/24 [facility] Helen 06-06-2024 [facility] Telephone (HCSIND) GONZALO DELUCA ([id number]) 1955 F Date Time Provider Department 06/06/24 HERMINIA CASE During your visit today, we recorded the following information about you: Erna Diaz LPN 06/06/2024 1:02 PM Signed Herminia Case MD Thank you for the referral for Gonzalo Deluca to receive home care services through [facility]. At this time, the office note [...] Date Reviewed: 12/30/2023 Reviewed by: Joaquina Martinez APRN.[facility] - Fully Assessed Reason for Visit: Home [...] access [I87.8] more content not included)... Normal [facility] 36on 06-05-2024 36 Pt called with christian padron to schedule appt with SENIOR C SOFTWARE DEVELOPER. Made appt with pt being past due. Pt was supposed to be seen 05/14 for 6 month surveillance appt. Called Rambo weaver and scheduled port flush for 06/12/24 at 2:00 pm. Normal [facility] 36 Patient called to obtain an order for a port flush and/or removal. Patient not sure if she needs to make an appointment. Patient would like schedule in [place]. Verified contact number for patient is correct. Normal [facility] Basic metabolic 1998 panelon 04-28-2024 Anion gap [Moles/Vol] 8 mmol/L 3 - 13 mmol/L [facility] Calcium [Mass/Vol] 9.1 mg/dL 8.8 - 10. 0 mg/dL [facility] Chloride [Moles/Vol] 102 mmol/L 98 - 10 7 mmol/L [facility] CO2 [Moles/Vol] 33 mmol/L High 23 - 31 mmol/L [facility] Creatinine [Mass/Vol] 0.78 mg/dL 0.57 - 1.11 mg/dL [facility] GFR/1.73 sq M.predicted (S/P/Bld) [Vol rate/Area] 83.4 mL/min - PINF [facility] Comment on above: Calculation based on the Chronic Kidney Disease Epidemiology Collaboration (CKD-EPI) equation refit without adjustment for race Glucose [Mass/Vol] 179 mg/dL High 82 - 115 mg/dL [facility] Interpretation and review of laboratory results Abnormal [facility] Potassium [Moles/Vol] 3.6 mmol/L 3.5 - 5.1 mmol/L [facility] Comment on above: Plasma potassium martín ues may be up to 0.5 mmol/L lower than serum values. Sodium [Moles/Vol] 143 mmol/L 136 - 145 mmol/L [facility] Urea nitrogen [Mass/Vol] 13 mg/dL 9 - 23 mg/d L [facility] CBC W Auto Differential pane l (Bld)Ordered By: Hakeem Cruz on 04-28-2024 Basophils (Bld) [#/Vol] 0 10*3/uL 0.0 - 0.2 10*3/uL [facility] Basophils/100 WBC (Bld) 0.6 % 0.0 - 2.0 % [facility] Eosinophils (Bld) [#/Vol] 0.3 10*3/uL 0.0 - 0.5 10*3/uL [facility] Eosinophils/100 WBC (Bld) 4 % 0.0 - 6.0 % [facility] Erythrocyte distribution width (RBC) [Ratio] 13.2 % 11.5 - 15.0 % [facility] Hematocrit (Bld) [Volume fraction] 37.3 % 35.0 - 47.0 % [facility] Hemoglobin (Bld) [Mass/Vol] 11.5 g/dL Low 11.7 - 16.0 g/dL [facility] [email or web address] Immature granulocytes (Bld) [#/Vol] 0 10*3/uL NINF - 0.1 10*3/uL [facility] Health Immature granulocytes/100 WBC (Bld) 0.5 % 0.0 - 2.0 % [facility] Interpretation and review of laboratory results Abnormal [facility] Lymphocytes (Bld) [#/Vol] 0.7 10*3/uL Low 1.0 - 4.3 10*3/uL [facility] Lymphocytes/100 WBC (Bld) 10.6 % Low 15.0 - 45.0 % [facility] MCH (RBC) [Entitic mass] 30.9 pg 26. 0 - 34.0 pg [facility] MCHC (RBC) [Mass/Vol] 30.8 % 30.5 - 36.0 % [facility] MCV (RBC) [Entitic vol] 100.3 fL High 77.0 - 99.0 fL [facility] [email or web address] Monocytes (Bld) [#/Vol] 0.4 10*3/uL 0.0 - 0.9 10*3/uL [facility] Monocytes/100 WBC (Bld) 6.5 % 5.0 - 13.0 % [facility] Neutrophils (Bld) [#/Vol] 5.1 10*3/uL 1.8 - 7.5 10*3/uL [facility] Neutrophils/100 WBC (Bld) 77.8 % 38.0 - 82.0 % [facility] Nucleated RBC/100 WBC (Bld) [Ratio] 0 % [facility] Platelet mean volume (Bld) [Entitic vol] 10 fL 9.0 - 12.7 fL [facility] Platelets (Bld) [#/Vol] 165 10*3/uL 140 - 440 10*3/uL [facility] RBC (Bld) [#/Vol] 3.72 10*6/uL Low 3.80 - 5.2 0 10*6/uL [facility] WBC (Bld) [#/Vol] 6.5 10*3/uL 3.6 - 10.7 10*3/uL [facility] CT CERVICAL SPINE WO IV CONT RASTon 04-28-2024 CT CERVICAL SPINE WO IV CONTRAST Normal [facility] CT Cervical spine WO contras ton [...] the paranasal sinuses shows no air-fluid levels. [facility] Ramses Gamble MD - 04/28/2024 Patient [...] Electronically Signed Date/Time: 04/28/2024 12:50 AM EST [facility] Radiology Study observation (narrative) [facility] alth CT HEAD WO IV CONTRASTon CT HEAD WO IV CONTRAST Normal [facility] CT Head WO contraston 2024 Patient [...] the paranasal sinuses shows no air-fluid levels. [facility] Ramses Gamble MD - 04/28/2024 [...] Electronically Signed Date/Time: 04/28/2024 12:50 AM EST [facility] Radiology Study observation (narrative) [facility] jackson ECG 12-LEADon 04-28-2024 ECG 12-LEAD IMPRESSION: Sinus rhythm with normal rate, intervals and QRS duration. No acute ischemic changes. Inferior Q waves, old Electronically Signed On 04-28-2024 14:40:42 EST by Freddy Ibarra Normal [facility] [email or web address] [facility] Laboratory - Chemistry and C hemistry - challengeon 04-28-2024 Magnesium [Mass/Vol] 2 mg/dL 1.6 - 2 .6 mg/dL [facility] Magnesium [Mass/Vol]on 04-28 Interpretation and review of laboratory results Normal [facility] [email or web address] Higher values can be expected in females during menses. [facility] [email or web address] No Panel Informationon 04-28 Impression: No acute [...] MD Electronically Signed Date/Time: 04/28/2024 12:50 AM [facility] [email or web address] Interpretation and review of laboratory results Normal [facility] Troponin HS Serial Baseline 4 ng/L NINF - 14 ng/L [facility] Comment on above: In individuals prese nting with symptoms > 2h, a baseline troponin <= 5 ng/L suggests acute cardiac injury is unlikely and further serial testing is generally not indicated. [facility] XR Elbow - left 3 Viewson Findings and impression: Left elbow three views performed. Bone density is normal. No fracture or dislocation seen. Report Dictated on Electronically Signed By: Ramses Gamble MD Electronically Signed Date/Time: 04/28/2024 12:23 AM [facility] [employer] [facility] Patient Name: GONZALO DELUCA : 1955 Exam Date/Time: 04/28/2024 00:01 Procedure: XR ELBOW 3+ VIEWS LEFT Ordering Provider: ALTAMIRANO JEFFREY Reason For Exam: Elbow trauma Indication: Elbow trauma. [facility] Ramses Gamble MD - 04/28/2024 [...] Electronically Signed Date/Time: 04/28/2024 12:23 AM EST [facility] Radiology Study observation (narrative) [facility] XR Elbow - left 3 ViewsOrder ed By: Ramses Gamble on 04-28-2024 [facility] Work Phone: BASIC METABOLIC PANELon 02-0 Anion gap [Moles/Vol] 8 mmol/L Normal 3-13 [facility] Comment on above: Performed By: #### Arsenio AB103, LAB15, [id number] ####Smt Operator: HANS PAULSON ([id number])[facility] (SBAB)[address] Calcium [Mass/Vol] 9.1 mg/dL Normal 8.8-10.0 [facility] Comment on above: Performed By: #### Arsenio AB103, LAB15, [id number] ####Smt Operator: HANS PAULSON ([phone])[facility] (SBHLAB)[address] Chloride [Moles/Vol] 102 mmol/L Normal 98-107 [facility] Comment on above: Performed By: #### Arsenio AB103, LAB15, [id number] ####Smt Operator: HANS PAULSON ([id number])[facility] [place] (SB[facility])[address] [place] [address] [place] CO2 [Moles/Vol] 33 mmol/L High 23-31 [facility] Comment on above: Performed By: #### L AB103, LAB15, [id number] ####Smt Operator: HANS PAULSON ([phone])[facility] (SBHLAB)[address] [place] [address] [place] Creatinine [Mass/Vol] 0.78 mg/dL Normal 0.57-1.11 [facility] Comment on above: Performed By: #### Arsenio RAGLAND, LAB15, [id number] ####Smt Operator: HANS PAULSON ([id number])[facility] (SBAB)[address] GLOMERULAR FILTRATION RATE ML/MIN/1.73 SQ M.PREDICTED 83.4 mL/min/1.73m*2 Normal >60.0 [facility] Comment on above: Result Comment: Calc ulation based on the Chronic Kidney Disease Epidemiology Collaboration (CKD-EPI) equation refit without adjustment for race Performed By: #### Arsenio RAGLAND, LAB15, [id number] ####Smt Operator: HANS PAULSON ([phone])[facility] ([facility])[address] Glucose [Mass/Vol] 179 mg/dL High 82-115 [facility] Comment on above: Performed By: #### Arsenio RAGLAND, LAB15, [id number] ####Smt Operator: HANS PAULSON ([phone])[facility] ([facility] [place] [address] [place] Potassium [Moles/Vol] 3.6 mmol/L Normal 3.5-5.1 [facility] Comment on above: Result Comment: [facility] potassium values may be up to 0.5 mmol/L lower than serum values. Performed By: #### Arsenio RAGLAND, LAB15, [id number] ####Smt Operator: HANS PAULSON ([phone])[facility] (SBHLAB)[address] [place] [address] [place] Sodium [Moles/Vol] 143 mmol/L Normal 136-145 [facility] Comment on above: Performed By: #### Arsenio RAGLAND, LAB15, [id number] ####Smt Operator: HANS PAULSON ([id number])[facility] (SBHLAB)[address] [place] [address] [place] Urea nitrogen [Mass/Vol] 13 mg/dL Normal 9-23 [facility] Comment on above: Performed By: #### L AB103, LAB15, [id number] ####Smt Operator: HANS PAULSON ([id number])[facility] (SBHLAB)[address] CBC WITH AUTO DIFFERENTIALon 04-27-2024 Basophils (Bld) [#/Vol] 0.0 10*3/uL Normal 0.0-0.2 [facility] Comment on above: Performed By: #### L [id number] ####Smt Operator: HANS PAULSON ([id number])[facility] (SBHLAB)[address] Basophils/100 WBC (Bld) 0.6 % Normal 0.0-2.0 [facility] Comment on above: Performed By: #### L [id number] ####Smt Operator: HANS PAULSON ([phone])[facility] (SBHLAB)[address] Eosinophils (Bld) [#/Vol] 0.3 10*3/uL Normal 0.0-0.5 [facility] Comment on above: Performed By: #### L [id number] ####Smt Operator: HANS PAULSON ([phone])[facility] [place] (SBHLAB)[address] Eosinophils/100 WBC (Bld) 4.0 % Normal 0.0-6.0 [facility] Comment on above: Performed By: #### L [id number] ####Smt Operator: HANS PAULSON ([id number])[facility] (SBHLAB)[address] Erythrocyte distribution width (RBC) [Ratio] 13.2 % Normal 11.5-15.0 [facility] Comment on above: Performed By: #### L [id number] ####Smt Operator: HANS PAULSON ([id number])[facility] [place] ([facility])[address] Hematocrit (Bld) [Volume fraction] 37.3 % Normal 35.0-47.0 [facility] Comment on above: Performed By: #### L [id number] ####Smt Operator: HANS ALCANTARESCOBAR ([id number])[facility] ([facility])[address] Hemoglobin (Bld) [Mass/Vol] 11.5 g/dL Low 11.7-16.0 [facility] Comment on above: Performed By: #### L [id number] ####Smt Operator: HANS LORENE ([id number])[facility] ([facility])[address] [place] [address] IMMATURE GRANS % 0.5 % Normal 0.0-2.0 [facility] Comment on above: Performed By: #### L [id number] ####Smt Operator: HANS ALCANTARESCOBAR ([id number])[facility] ([facility])[address] [place] [address] IMMATURE GRANS ABSOLUTE 0.0 10*3/uL Normal <0.1 [facility] Comment on above: Performed By: #### L [id number] ####Smt Operator: HANS ALCANTARESCOBAR ([phone])[facility] ([facility])[address] [place] [address] Lymphocytes (Bld) [#/Vol] 0.7 10*3/uL Low 1.0-4.3 [facility] Comment on above: Performed By: #### L [id number] ####Smt Operator: HANS ALCANTARESCOBAR ([id number])[facility] ([facility])[address] [place] [address] Lymphocytes/100 WBC (Bld) 10.6 % Low 15.0-45.0 [facility] Comment on above: Performed By: #### L [id number] ####Smt Operator: HANS ALCANTARESCOBAR ([id number])[facility] ([facility])[address] [place] [address] MCH (RBC) [Entitic mass] 30.9 pg Normal 26.0-34.0 [facility] Comment on above: Performed By: #### L [id number] ####Smt Operator: HANS PAULSON ([phone])[facility] (SBHLAB)[address] MCHC 30.8 % Normal 30.5-36.0 [facility] Comment on above: Performed By: #### L [id number] ####Smt Operator: HANS ALCANTARESCOBAR ([id number])[facility] (SBHLAB)[address] MCV (RBC) [Entitic vol] 100.3 fL High 77.0-99.0 [facility] Comment on above: Performed By: #### L [id number] ####Smt Operator: HANS PAULSON ([phone])[facility] (SBHLAB)[address] Monocytes (Bld) [#/Vol] 0.4 10*3/uL Normal 0.0-0.9 [facility] Comment on above: Performed By: #### L [id number] ####Smt Operator: HANS PAULSON ([phone])[facility] (SBHLAB)[address] Monocytes/100 WBC (Bld) 6.5 % Normal 5.0-13.0 [facility] Comment on above: Performed By: #### L [id number] ####Smt Operator: HANS PAULSON ([phone])[facility] (SBHLAB)[address] NEUTROPHILS ABSOLUTE 5.1 10*3/uL Normal 1.8-7.5 [facility] Comment on above: Performed By: #### L [id number] ####Smt Operator: HANS PAULSON ([id number])[facility] [place] ([facility])[address] Neutrophils/100 WBC (Bld) 77.8 % Normal 38.0-82.0 [facility] Comment on above: Performed By: #### L [id number] ####Smt Operator: HANS PAULSON ([phone])[facility] [place] ([facility])[address] NRBC 0.0 /100 WBCs Normal 0.0-2.0 [facility] Comment on above: Performed By: #### L [id number] ####Smt Operator: HANS PAULSON ([id number])[facility] [place] ([facility])[address] Platelet mean volume (Bld) [Entitic vol] 10.0 fL Normal 9.0-12.7 [facility] Comment on above: Performed By: #### L [id number] ####Smt Operator: HANS PAULSON ([phone])[facility] [place] ([facility])[address] Platelets (Bld) [#/Vol] 165 10*3/uL Normal 140-440 [facility] Comment on above: Performed By: #### L [id number] ####Smt Operator: HANS PAULSON ([id number])[facility] [place] ([facility])[address] RBC (Bld) [#/Vol] 3.72 10*6/uL Low 3.80-5.20 [facility] Comment on above: Performed By: #### L [id number] ####Smt Operator: HANS PAULSON ([id number])[facility] [place] ([facility])[address] WBC (Bld) [#/Vol] 6.5 10*3/uL Normal 3.6-10.7 [facility] Comment on above: Performed By: #### L [id number] ####Smt Operator: HANS PAULSON ([phone])[facility] [place] ([facility])[address] ED Nursing Noteon 04-27-2024 ED Nursing Note Per ems, fall on carpeted floor. _ LOC but pt states she was dizzy and weak prior to fall. C/o L elbow and nose pain 2ndary fall Normal [facility] ED Provider Noteon ED Provider Note Normal [facility] HIGH SENSITIVITY TROPONIN, S ERIAL BASELINEon 04-27-2024 TROPONIN HS SERIAL BASELINE 4 ng/L Normal <=14 [facility] Comment on above: Result Comment: In i ndividuals presenting with symptoms > 2h, a baseline troponin <= 5 ng/L suggests acutecardiac injury is unlikely and further serial testing is generally not indicated. Performed By: #### L AB103, LAB15, [id number] ####Smt Operator: HANS PAULSON ([phone])[facility] ([facility])[address] [place] [address] MAGNESIUMon 04-27-2024 Magnesium [Mass/Vol] 2.0 mg/dL Normal 1.6-2.6 [facility] Comment on above: Result Comment: KYM Gilmore COMMENTS:Higher values can be expected in females during menses. Performed By: #### L AB103, LAB15, [id number] ####Smt Operator: HANS PAULSON ([id number])[facility] ([facility])[address] [place], [place] [address]Lupe 03-01-2024 CNPN Telephone (ANALIA) GONZALO DELUCA ([id number]) 1955 F Date Time Provider Department 03/01/24 HEMRINIA CASE During your visit today, we recorded [...] Date Reviewed: 12/30/2023 Reviewed by: Joaquina Martinez APRN.DENTIST - Fully Assessed Reason for Visit: Medication [...] Encounter Status:Closed by WHIT SHAY on 03/05/24 [facility] 12-27-2023 NADEEMN Telephone (ANALIA) GONZALO DELUCA ([id number]) 1955 F Date Time Provider Department 12/27/23 HERMINIA CASE During your visit today, we recorded the following information about you: Whit Shay LPN 12/27/2023 12:51 PM Signed Type of letter/form/fax request - Home Health Care Orders Form received from [facility] on 12/26/23 floor and placed on MD desk () for completion. Completed form needs to be faxed to [phone]. Route to [place] when form completed for processing Whit Shay LPN 12/27/2023 3:31 PM Signed Request completed and faxed. Allergies As of Date: 12/27/2023 Noted Allergy Reaction SEASONAL ALLERGIES 08/16/2017 5 - Intolerance Date Reviewed: 09/08/2023 Reviewed by: Tate Weathers MA - Fully Assessed Reason for Visit: Orders [841] Prescriptions as of 12/27/2023 - alendronate (FOSAMAX) [...] Encounter Status:Closed by WHIT SHAY on 12/27/23 [facility] GON[facility]CA ([id number]) 1955 F Date Time Provider Department 12/13/23 [facility] CASE [facility] During your visit today, we recorded the following information about you: Whit Shay LPN 12/13/2023 11:03 AM Signed Type of letter/form/fax request - Home Health Care Orders Form received from [facility] on 12/12/23 floor and placed on desk () for completion. Completed form needs to be faxed to [phone]. Route to [place] when form completed for processing Herminia Case [...] Encounter Status:Closed by WHIT SHAY on 12/14/23 [facility] 12-06-2023 CNPN Telephone (FAMDNA) GONZALO DELUCA ([id number]) 1955 Date Time Provider Department 12/06/23 HERMINIA CASE [facility] During your visit today, we recorded the following information about you: Whit Shay LPN 12/06/2023 1:40 PM Signed Type of letter/form/fax request - Home Health Care Orders Plan of Care Certification Period-11/25/23 to 01/23/24 Form received from [facility] on 12/01/23 floor and placed on desk () for completion. Completed form needs to be faxed to [phone]. Route to [place] when form completed for processing Herminia Case [...] Encounter Status:Closed by WHIT SHAY on 12/06/23 [facility] 11-14-2023 CNPN Telephone (FAMDNA) GONZALO DELUCA ([id number]) 1955 F Date Time Provider Department 11/14/23 HERMINIA CASE During your visit today, we recorded the following information about you: Whit Shay LPN 11/14/2023 11:47 AM Signed Type of letter/form/fax request - Home Health Care Orders Form received from [facility] on 11/13/23 floor and placed on desk () for completion. Completed form needs to be faxed to . Route to [place] when form completed for processing Herminia Case [...] Encounter Status:Closed by WHIT SHAY on 11/14/23 [facility] 10-28-2023 CNPN Telephone (FAMDNA) GONZALO DELUCA ([id number]) 1955 F Date Time Provider Department 10/28/23 HERMINIA CASE During your visit today, we recorded the following information about you: Whit Shay LPN 10/28/2023 9:46 AM Signed Type of letter/form/fax request - Home Health Care Orders Form received from [facility] on 10/27/23 floor and placed on desk () for completion. Completed form needs to be faxed to [phone]. Route to [place] when form completed for processing Herminia Case [...] Status:Closed by WHIT SHAY on 10/28/23 [facility] 10[facility]2023 CNPN Telephone (4CQ) GONZALO DELUCA ([id number]) 1955 F Date Time Provider Department 10/22/23 HERMINIA CASE 4CQ During your visit today, we recorded the following information about you: Elsy Caro 10/22/2023 11:53 AM Signed [facility] PT called to report that patient [...] Encounter Status:Closed by MELVA JUÁREZ on [facility] GONZALO DELUCA ([id number]) 1955 F Date Time Provider Department 10/18/23 HERMINIA CASE During your visit today, we recorded the following information about you: Whit Shay LPN 10/18/2023 3:01 PM Signed Type of letter/form/fax request - Home Health Care Orders Form received from [facility] on 10/18/23 floor and placed on MD desk () for completion. Completed form needs to be faxed to [phone]. Route to [place] when form completed for processing Whit Shay [...] Status:Closed by WHIT SHAY on 10/18/[address] [facility] [address] Chest WO contraston 10-15 1. [...] Electronically Signed Date/Time: 10/16/2023 9:11 PM [facility] Patient Name: GONZALO DELUCA : 1955 [facility]#: [id number] Exam Date/Time: 10/16/2023 20:29 Procedure: CT CHEST [...] deformities. No suspicious bulky axillary adenopathy. [facility] Roxie Kwon MD - 10/16/2023 [facility] Name[facility] 1955 [id number] Exam Date/Time: 10/16/2023 20:29 Procedure: CT CHEST [...] Electronically Signed Date/Time: 10/16/2023 9:11 PM EDT [facility] Radiology Study observation (narrative) [facility] CT Chest WO contrastOrdered By: Roxie Kwon on 10-16-2023 [facility] Work Phone: XR Hip - left 3 [...] Signed Date/Time: 10/16/2023 8:46 PM EDT [facility] Patient Name: GONZALO DELUCA : 1955 Exam Date/Time: 10/16/2023 20:40 Procedure: XR HIP 2 OR 3 VW LEFT Ordering Provider: HARTLEY SAMANTHA Reason For Exam: L hip pain after fall LEFT HIP: CLINICAL INDICATION: Status post fall with left hip pain TECHNIQUE: AP view the pelvis, two views of the left hip. COMPARISON: 09/19/2023 [facility] Roxie Kwon MD - 10/16/2023 [...] Electronically Signed Date/Time: 10/16/2023 8:46 PM EDT [facility] Radiology Study observation (narrative) Abe Cervantes 10-10-2023 NADEEMN Telephone ([facility]) GONZALO DELUCA ([id number]) 1955 F Date Time Provider Department 10/10/23 HERMINIA CASE During your visit today, we recorded the following information about you: Whit Shay LPN 10/10/2023 1:42 PM Signed Type of letter/form/fax request - Home Health Care Orders Form received from [facility] on 10/06/23 floor and placed on MD desk () for completion. Completed form needs to be faxed to [phone]. Route to [place] when form completed for processing Herminia Case [...] Encounter Status:Closed by WHIT SHAY on 10/11/23 [facility] 10-06-2023 CNPN Telephone (FAMDNA) GONZALO DELUCA ([id number]) 1955 F Date Time Provider Department 10/06/23 [...] @ Home Call patient at: at home [phone] (home) [phone] (cell) Was an appointment scheduled: No Closing [...] Status:Closed by JOAQUINA MARTINEZ on 10/06/23 Normal [facility] Basic metabolic 1998 panelon 09-22-2023 Anion gap [Moles/Vol] 10 mmol/L 3 - 13 mmol/L [facility] Calcium [Mass/Vol] 8.9 mg/dL 8.4 - 10. 4 mg/dL [facility] Chloride [Moles/Vol] 100 mmol/L 98 - 10 7 mmol/L [facility] CO2 [Moles/Vol] 30 mmol/L 22 - 30 mmol/L [facility] Creatinine [Mass/Vol] 0.39 mg/dL Low 0.52 - 1.04 mg/dL [facility] GFR/1.73 sq M.predicted MDRD (S/P/Bld) [Vol rate/Area] - PINF [facility] Comment on above: Calculation based on the Chronic Kidney Disease Epidemiology Collaboration (CKD-EPI) equation refit without adjustment for race Glucose [Mass/Vol] 109 mg/dL High 70 - 100 mg/dL [facility] Interpretation and review of laboratory results Abnormal [facility] Potassium [Moles/Vol] 4.2 mmol/L 3.5 - 5.1 mmol/L [facility] Sodium [Moles/Vol] 140 mmol/L 135 - 145 mmol/L [facility] Urea nitrogen [Mass/Vol] 11 mg/dL 7 - 17 mg/d L [facility] CBC W Auto Differential pane l (Bld)Ordered By: Rolando Shelton on 09-22-2023 Basophils (Bld) [#/Vol] 0.1 10*3/uL 0.0 - 0.2 10*3/uL [facility] Basophils/100 WBC (Bld) 0.5 % 0.0 - 2.0 % [facility] Eosinophils (Bld) [#/Vol] 0.1 10*3/uL 0.0 - 0.5 10*3/uL [facility] Eosinophils/100 WBC (Bld) 1.3 % 0.0 - 6.0 % [facility] Erythrocyte distribution width (RBC) [Ratio] 13.2 % 11.5 - 15.0 % [facility] Hematocrit (Bld) [Volume fraction] 37.5 % 35.0 - 47.0 % [facility] Hemoglobin (Bld) [Mass/Vol] 11.9 g/dL 11.7 - 16.0 g/dL [facility] Immature granulocytes (Bld) [#/Vol] 0.0 10*3/uL NINF - 0.1 10*3/uL [facility] Immature granulocytes/100 WBC (Bld) 0.3 % 0.0 - 2.0 % [facility] Interpretation and review of laboratory results Abnormal [facility] Lymphocytes (Bld) [#/Vol] 0.8 10*3/uL Low 1.0 - 4.3 10*3/uL [facility] Lymphocytes/100 WBC (Bld) 8.6 % Low 15.0 - 45.0 % [facility] MCH (RBC) [Entitic mass] 30.3 pg 26. 0 - 34.0 pg [facility] MCHC (RBC) [Mass/Vol] 31.7 % 30.5 - 36.0 % [facility] MCV (RBC) [Entitic vol] 95.4 fL 77.0 - 99.0 fL [facility] Monocytes (Bld) [#/Vol] 0.5 10*3/uL 0.0 - 0.9 10*3/uL [facility] Monocytes/100 WBC (Bld) 5.3 % 5.0 - 13.0 % [facility] Neutrophils (Bld) [#/Vol] 8.2 10*3/uL High 1.8 - 7.5 10*3/uL [facility] Neutrophils/100 WBC (Bld) 84.0 % High 38.0 - 82.0 % [facility] Nucleated RBC/100 WBC (Bld) [Ratio] 0.0 % [facility] Platelet mean volume (Bld) [Entitic vol] 9.2 fL 9.0 - 12.7 fL [facility] Platelets (Bld) [#/Vol] 289 10*3/uL 140 - 440 10*3/uL [facility] RBC (Bld) [#/Vol] 3.93 10*6/uL 3.80 - 5.2 0 10*6/uL [facility] WBC (Bld) [#/Vol] 9.8 10*3/uL 3.6 - 10.7 10*3/uL [facility] 25-hydroxyvitamin D3 [Mass/V ol]on 09-21-2023 Interpretation and review of laboratory results Normal [facility] Therapy is based on measurement of Total 25-OHD with the following classification levels: Less than 20 ng/mL: Indicative of Vit D deficiency 20-30 ng/mL: Suggests Vit D insufficiency Optimal: Greater than or equal to 30 ng/mL Test performed by [employer] Competitive Immunoassay, measuring Total Vitamin D, not individual fractions. [facility] Basic metabolic 1998 panelon 09-21-2023 Anion gap [Moles/Vol] 2 mmol/L Low 3 - 13 mmol/L [facility] Calcium [Mass/Vol] 9.1 mg/dL 8.4 - 10. 4 mg/dL [facility] Chloride [Moles/Vol] 102 mmol/L 98 - 10 7 mmol/L [facility] CO2 [Moles/Vol] 35 mmol/L High 22 - 30 mmol/L [facility] Creatinine [Mass/Vol] 0.49 mg/dL Low 0.52 - 1.04 mg/dL [facility] GFR/1.73 sq M.predicted MDRD (S/P/Bld) [Vol rate/Area] - PINF [facility] Comment on above: Calculation based on the Chronic Kidney Disease Epidemiology Collaboration (CKD-EPI) equation refit without adjustment for race Glucose [Mass/Vol] 97 mg/dL 70 - 100 mg/dL [facility] Potassium [Moles/Vol] 3.1 mmol/L Low 3.5 - 5.1 mmol/L [facility] Sodium [Moles/Vol] 139 mmol/L 135 - 145 mmol/L [facility] Urea nitrogen [Mass/Vol] 18 mg/dL High 7 - 17 mg/d L [facility] CBC W Auto Differential pane l (Bld)Ordered By: Crystal Dupont on 09-21-2023 Basophils (Bld) [#/Vol] 0.1 10*3/uL 0.0 - 0.2 10*3/uL [facility] Basophils/100 WBC (Bld) 0.5 % 0.0 - 2.0 % [facility] Eosinophils (Bld) [#/Vol] 0.8 10*3/uL High 0.0 - 0.5 10*3/uL [facility] Eosinophils/100 WBC (Bld) 8.2 % High 0.0 - 6.0 % [facility] Erythrocyte distribution width (RBC) [Ratio] 13.2 % 11.5 - 15.0 % [facility] Hematocrit (Bld) [Volume fraction] 33.9 % Low 35.0 - 47.0 % [facility] Hemoglobin (Bld) [Mass/Vol] 10.6 g/dL Low 11.7 - 16.0 g/dL [facility] Immature granulocytes (Bld) [#/Vol] 0.0 10*3/uL NINF - 0.1 10*3/uL [facility] Immature granulocytes/100 WBC (Bld) 0.2 % 0.0 - 2.0 % [facility] Interpretation and review of laboratory results Abnormal [facility] Lymphocytes (Bld) [#/Vol] 0.8 10*3/uL Low 1.0 - 4.3 10*3/uL [facility] Lymphocytes/100 WBC (Bld) 8.7 % Low 15.0 - 45.0 % [facility] MCH (RBC) [Entitic mass] 30.2 pg 26. 0 - 34.0 pg [facility] MCHC (RBC) [Mass/Vol] 31.3 % 30.5 - 36.0 % [facility] MCV (RBC) [Entitic vol] 96.6 fL 77.0 - 99.0 fL [facility] Monocytes (Bld) [#/Vol] 0.7 10*3/uL 0.0 - 0.9 10*3/uL [facility] Monocytes/100 WBC (Bld) 7.1 % 5.0 - 13.0 % [facility] Neutrophils (Bld) [#/Vol] 7.0 10*3/uL 1.8 - 7.5 10*3/uL [facility] Neutrophils/100 WBC (Bld) 75.3 % 38.0 - 82.0 % [facility] Nucleated RBC/100 WBC (Bld) [Ratio] 0.0 % [email or web address] Platelet mean volume (Bld) [Entitic vol] 9.5 fL 9.0 - 12.7 fL [employer] Platelets (Bld) [#/Vol] 217 10*3/uL 140 - 440 10*3/uL [employer] RBC (Bld) [#/Vol] 3.51 10*6/uL Low 3.80 - 5.2 0 10*6/uL [employer] [email or web address] WBC (Bld) [#/Vol] 9.4 10*3/uL 3.6 - 10.7 10*3/uL [email or web address] [facility] CNPNon 09-21-2023 CNPN Telephone (FAMDNA) GONZALO DELUCA ([id number]) 1955 F Date Time Provider Department 09/21/23 HERMINIA CASE FAMDNA During your visit today, we recorded the following information about you: Ana Maria Acosta, RN 09/21/2023 2:55 PM Signed Ashley from [facility] Patient currently admitted for falls Need orders to follow for Home Care Call back number: [phone] Melva Juárez PA-C 09/21/2023 4:01 PM Signed Orders or will Dr. Case follow? She will follow. We don't typically give home care orders. RODRÍGUEZ Kruse Kristina, CHARLEY 09/21/2023 4:54 PM Signed Called and spoke with Vivian from [place] They just need to confirm Dr. Case [...] by ANA MARIA ACOSTA on 09/21/23 [facility] Cobalamin (Vitamin B12) [Mas s/Vol]on 09-21-2023 Interpretation and review of laboratory results Normal [facility] - Chemistry and C hemistry - challengeon 09-21-2023 Cobalamin (Vitamin B12) [Mass/Vol] 735 pg/mL 239 - 931 pg/mL [facility] TSH Qn 1.017 m[IU]/L [employer] h 25-hydroxyvitamin D3 [Mass/Vol] 30 ng/mL 30 - 100 ng/mL [facility] Magnesium [Mass/Vol] 1.5 mg/dL Low 1.6 - 2 .3 mg/dL [facility] No Panel InformationOrdered By: Dave Cao on 09-21-2023 P Hammond 46 degrees [facility] Work Phone: AR Interval 142 ms [facility] Work Phone: QRS Hammond -35 degrees [facility] Work Phone: QRSD Interval 102 ms [employer] Work Phone: QT Interval 382 ms [facility] Work Phone: QTC Interval 446 ms [facility] Work Phone: T Wave Hammond 147 degrees [facility] Work Phone: [facility] Work Phone: No Panel Informationon 09-20 Sinus [...] On 09-21-2023 09:19:23 EDT by Dave Cao [facility] Interpretation and review of laboratory results Abnormal [facility] TSH Qnon 09-21-2023 Interpretation and review of laboratory results Normal [facility] Vital signsOrdered By: Bernadette Cao on 09-21-2023 Heart rate 82 /min bpm [facility] Work Phone: Basic metabolic 1998 panelon 09-20-2023 Anion gap [Moles/Vol] 5 mmol/L 3 - 13 mmol/L [facility] Calcium [Mass/Vol] 8.5 mg/dL 8.4 - 10. 4 mg/dL [facility] Chloride [Moles/Vol] 99 mmol/L 98 - 10 7 mmol/L [facility] CO2 [Moles/Vol] 33 mmol/L High 22 - 30 mmol/L [facility] Creatinine [Mass/Vol] 0.73 mg/dL 0.52 - 1.04 mg/dL [facility] GFR/1.73 sq M.predicted MDRD (S/P/Bld) [Vol rate/Area] - PINF [facility] Comment on above: Calculation based on the Chronic Kidney Disease Epidemiology Collaboration (CKD-EPI) equation refit without adjustment for race Glucose [Mass/Vol] 94 mg/dL 70 - 100 mg/dL [facility] Interpretation and review of laboratory results Abnormal [facility] Potassium [Moles/Vol] 3.1 mmol/L Low 3.5 - 5.1 mmol/L [facility] Sodium [Moles/Vol] 137 mmol/L 135 - 145 mmol/L [facility] Urea nitrogen [Mass/Vol] 28 mg/dL High 7 - 17 mg/d L [facility] CBC W Auto Differential pane l (Bld)on 09-20-2023 Basophils (Bld) [#/Vol] 0.1 10*3/uL 0.0 - 0.2 10*3/uL [facility] Basophils/100 WBC (Bld) 0.5 % 0.0 - 2.0 % [facility] Eosinophils (Bld) [#/Vol] 0.8 10*3/uL High 0.0 - 0.5 10*3/uL [facility] Eosinophils/100 WBC (Bld) 7.0 % High 0.0 - 6.0 % [facility] Erythrocyte distribution width (RBC) [Ratio] 12.9 % 11.5 - 15.0 % [facility] Hematocrit (Bld) [Volume fraction] 34.8 % Low 35.0 - 47.0 % [facility] Hemoglobin (Bld) [Mass/Vol] 11.0 g/dL Low 11.7 - 16.0 g/dL [facility] Immature granulocytes (Bld) [#/Vol] 0.0 10*3/uL NINF - 0.1 10*3/uL [facility] Immature granulocytes/100 WBC (Bld) 0.4 % 0.0 - 2.0 % [facility] Interpretation and review of laboratory results Abnormal [facility] Lymphocytes (Bld) [#/Vol] 1.3 10*3/uL 1.0 - 4.3 10*3/uL [facility] Lymphocytes/100 WBC (Bld) 11.5 % Low 15.0 - 45.0 % [facility] MCH (RBC) [Entitic mass] 30.2 pg 26. 0 - 34.0 pg [facility] MCHC (RBC) [Mass/Vol] 31.6 % 30.5 - 36.0 % [facility] MCV (RBC) [Entitic vol] 95.6 fL 77.0 - 99.0 fL [facility] Monocytes (Bld) [#/Vol] 0.7 10*3/uL 0.0 - 0.9 10*3/uL [facility] Monocytes/100 WBC (Bld) 6.0 % 5.0 - 13.0 % [facility] Neutrophils (Bld) [#/Vol] 8.2 10*3/uL High 1.8 - 7.5 10*3/uL [facility] Neutrophils/100 WBC (Bld) 74.6 % 38.0 - 82.0 % [facility] Nucleated RBC/100 WBC (Bld) [Ratio] 0.0 % [facility] Platelet mean volume (Bld) [Entitic vol] 9.4 fL 9.0 - 12.7 fL [facility] Platelets (Bld) [#/Vol] 243 10*3/uL 140 - 440 10*3/uL [facility] [email or web address] RBC (Bld) [#/Vol] 3.64 10*6/uL Low 3.80 - 5.2 0 10*6/uL [facility] [email or web address] WBC (Bld) [#/Vol] 10.9 10*3/uL High 3.6 - 10.7 10*3/uL [facility] Laboratory - Chemistry and C hemistry - challengeon 09-20-2023 Magnesium [Mass/Vol] 2.3 mg/dL 1.6 - 2 .3 mg/dL [facility] Troponin I.cardiac [Mass/Vol] 0.022 ng/mL NINF - 0.034 ng/mL [facility] [email or web address] Magnesium [Mass/Vol] 2.7 mg/dL High 1.6 - 2 .3 mg/dL [facility] [email or web address] Magnesium [Mass/Vol]on 09-19 Interpretation and review of laboratory results Normal [facility] Interpretation and review of laboratory results Abnormal [facility] Troponin I.cardiac [Mass/Vol ]on 09-20-2023 Interpretation and review of laboratory results Normal [facility] Patients with high levels of Biotin oral intake (ie >5 mg/day) may have falsely decreased Troponin levels. [facility] [email or web address] [facility] [email or web address] US Heart TransthoracicOrdere d By: Srini Vital on 09-20-2023 Ao Root Index 2.56 cm/m2 [facility] [employer] Work Phone: Aortic Root 4.0 cm [facility] [email or web address] Work Phone: Aortic Sinus Valsalva 4.0 cm [facility] [email or web address] Work Phone: Aortic Sinus Valsalva Index 2.56 cm/m2 [facility] [email or web address] Work Phone: E/E' Lateral 4.67 [facility] [email or web address] Work Phone: E/E' Ratio (Averaged) 5.13 [facility] [email or web address] Work Phone: E/E' Septal 5.60 [facility] [employer] Phone: EF BP 65 % 55 - 100 % [facility] [email or web address] Work Phone: Fractional Shortening 2D 27 % 28 - 44 % [facility] [email or web address] Work Phone: [phone] Global Longitudinal Strain -18.1 % [facility] [email or web address] Work Phone: Interpretation and review of laboratory results Abnormal [facility] [email or web address] Work Phone: [phone] IVC Diameter 1.8 cm [facility] [email or web address] Work Phone: IVSd 1.0 cm Abnormal 0.6 - 0.9 cm [facility] [email or web address] Work Phone: [phone] LA Diameter 2.8 cm [facility] [email or web address] Work Phone: LA Size Index 1.79 cm/m2 [facility] [employer] Work Phone: LA Volume 2C 36 mL 22 - 52 mL [facility] [email or web address] Work Phone: LA Volume 4C 31 mL 22 - 52 mL [facility] [email or web address] Work Phone: LA Volume A/L [address] [facility] Work Phone: LA Volume BP 39 mL 22 - 52 mL [facility] [email or web address] Work Phone: LA Volume Index 2C 23 mL/m2 16 - 34 mL/m2 [facility] [email or web address] Work Phone: LA Volume Index 4C 20 mL/m2 16 - 34 mL/m2 [facility] [email or web address] Work Phone: [phone] LA Volume Index A/L 27 mL/m2 16 - 34 mL/m2 [facility] [email or web address] Work Phone: LA Volume Index BP 25 ml/m2 16 - 34 ml/m2 [facility] [email or web address] Work Phone: [phone] LA/AO Root Ratio 0.70 [facility] Work Phone: LV E' Lateral Velocity 12 cm/s [facility] Work Phone: LV E' Septal Velocity 10 cm/s [facility] Work Phone: LV EDV A2C 56 mL [facility] [email or web address] Work Phone: LV EDV A4C 60 mL [facility] [email or web address] Work Phone: LV EDV BP 60 mL 56 - 104 mL [facility] Work Phone: LV EDV Index A2C 36 mL/m2 [facility] Work Phone: LV EDV Index A4C 38 mL/m2 [facility] Work Phone: LV EDV Index BP 38 mL/m2 [facility] Work Phone: LV Ejection Fraction A2C 60 % [facility] Work Phone: LV Ejection Fraction A4C 70 % [facility] Work Phone: LV ESV A2C 22 mL [facility] Work Phone: LV ESV A4C 18 mL [facility] Work Phone: LV ESV BP 21 mL 19 - 49 mL [facility] Work Phone: LV ESV Index A2C 14 mL/m2 [facility] Work Phone: LV ESV Index A4C 12 mL/m2 [facility] Work Phone: LV ESV Index BP 13 mL/m2 [facility] [employer] Work Phone: LV Mass 2D 158.2 g 67 - 162 g [facility] Work Phone: LV Mass 2D Index 101.4 g/m2 Abnormal 43 - 95 g/m2 [facility] Work Phone: LV RWT Ratio 0.50 [facility] Work Phone: LVIDd 4.4 cm 3.9 - 5.3 cm [facility] Work Phone: LVIDd Index 2.82 cm/m2 [facility] Work Phone: LVIDs 3.2 cm [facility] Work Phone: LVIDs Index 2.05 cm/m2 [facility] Work Phone: LVOT Area 4.2 cm2 [facility] Work Phone: LVOT Cardiac Output 6.5 liter/minute [facility] Work Phone: LVOT Diameter 2.3 cm [facility]alt [facility] Work Phone: LVOT Mean Gradient 2 mmHg [facility] Work Phone: LVOT Peak Gradient 3 mmHg [facility] Work Phone: [phone] LVOT Peak Velocity 0.9 m/s [facility] Work Phone: [phone] LVOT Stroke Volume Index 50.3 mL/m2 [facility] [email or web address] Work Phone: [phone] LVOT SV 78.5 ml [facility] Work Phone: [phone] LVOT VTI 18.9 cm [facility] Work Phone: [phone] LVPWd 1.1 cm Abnormal 0.6 - 0.9 cm [facility] Work Phone: [phone] MV A Velocity 0.55 m/s [facility] Work Phone: [phone] MV E Velocity 0.56 m/s [facility] Work Phone: [phone] MV E Wave Deceleration Time 192.4 ms [facility] [email or web address] Work Phone: [phone] MV E/A 1.02 [facility] [email or web address] Work Phone: [phone] RA Area 4C 28.3 mL [facility] Work Phone: [phone] RV Basal Dimension 2.7 cm [facility] Work Phone: [phone] RV Free Wall Peak S' 15 cm/s [facility] Work Phone: [phone] RV Longitudinal Dimension 5.0 cm [facility] [email or web address] Work Phone: [phone] RV Mid Dimension 2.4 cm [facility] Work Phone: [phone] Sinotubular Junction 3.4 cm [facility] Work Phone: TAPSE 1.9 cm 1.7 cm [facility] Work Phone: [phone] TR Max Velocity 2.90 m/s [facility] Hea [facility] Work Phone: TR Peak Gradient 34 mmHg [facility] He [facility] Work Phone: [facility] Work Phone: [phone] US Heart [...] [#/Vol] 0.0 10*3/uL 0.0 - 0.2 10*3/uL [facility] Basophils/100 WBC (Bld) 0.2 % 0.0 - 2.0 % [facility] Eosinophils (Bld) [#/Vol] 0.3 10*3/uL 0.0 - 0.5 10*3/uL [facility] Eosinophils/100 WBC (Bld) 1.5 % 0.0 - 6.0 % [facility] Erythrocyte distribution width (RBC) [Ratio] 13.0 % 11.5 - 15.0 % [facility] Hematocrit (Bld) [Volume fraction] 39.6 % 35.0 - 47.0 % [facility] Hemoglobin (Bld) [Mass/Vol] 12.7 g/dL 11.7 - 16.0 g/dL [facility] Immature granulocytes (Bld) [#/Vol] 0.1 10*3/uL High NINF - 0.1 10*3/uL [facility] Immature granulocytes/100 WBC (Bld) 0.6 % 0.0 - 2.0 % [facility] Interpretation and review of laboratory results Abnormal [facility] Lymphocytes (Bld) [#/Vol] 1.3 10*3/uL 1.0 - 4.3 10*3/uL [facility] Lymphocytes/100 WBC (Bld) 6.5 % Low 15.0 - 45.0 % [facility] MCH (RBC) [Entitic mass] 30.4 pg 26. 0 - 34.0 pg [facility] MCHC (RBC) [Mass/Vol] 32.1 % 30.5 - 36.0 % [facility] MCV (RBC) [Entitic vol] 94.7 fL 77.0 - 99.0 fL [facility] Monocytes (Bld) [#/Vol] 1.0 10*3/uL High 0.0 - 0.9 10*3/uL [facility] Monocytes/100 WBC (Bld) 5.1 % 5.0 - 13.0 % [facility] Neutrophils (Bld) [#/Vol] 16.8 10*3/uL High 1.8 - 7.5 10*3/uL [facility] Neutrophils/100 WBC (Bld) 86.1 % High 38.0 - 82.0 % [facility] Nucleated RBC/100 WBC (Bld) [Ratio] 0.0 % [facility] Platelet mean volume (Bld) [Entitic vol] 9.3 fL 9.0 - 12.7 fL [facility] Platelets (Bld) [#/Vol] 339 10*3/uL 140 - 440 10*3/uL [facility] RBC (Bld) [#/Vol] 4.18 10*6/uL 3.80 - 5.2 0 10*6/uL [facility] WBC (Bld) [#/Vol] 19.5 10*3/uL High 3.6 - 10.7 10*3/uL [facility] CT Cervical spine WO contras ton [...] atelectasis of the upper lungs noted. [facility] Clark Duffy MD - 09/19/2023 [...] Electronically Signed Date/Time: 09/19/2023 6:[address] [facility] [address] Head WO contraston 2023 No intracranial traumatic injuries. Report Dictated on Electronically Signed By: Brando Tejada MD Electronically Signed Date/Time: 09/19/2023 5:55 PM EDT [facility] Patient Name: GONZALO DELUCA : [...] banding. Clear paranasal sinuses. No calvarial fractures. [facility] Brando Tejada M D - [...] Electronically Signed Date/Time: 09/19/2023 5:55 PM EDT [facility] [email or web address] CT Head WO contrastOrdered B y: Brando Tejada on 09-19-2023 [facility] [employer] Phone: CT Thoracic spine WO chucho thorne [...] atelectasis of the upper lungs noted. [facility] Clark Duffy MD - 09/19/2023 [...] Electronically Signed Date/Time: 09/19/2023 6:01 PM EDT [facility] Radiology Study observation (narrative) [facility] Comprehensive metabolic 1998 panelOrdered By: Mara Hale on 09-19-2023 Albumin [Mass/Vol] 3.9 g/dL 3.5 - 5.0 g/dL [facility] ALP [Catalytic activity/Vol] 115 U/L 38 - 126 U/L [facility] ALT [Catalytic activity/Vol] 38 U/L High 0 - 34 U/L [facility] Anion gap [Moles/Vol] 13 mmol/L 3 - 13 mmol/L [facility] AST [Catalytic activity/Vol] 35 U/L 15 - 46 U/L [facility] Bilirubin [Mass/Vol] 0.5 mg/dL 0.2 - 1 .3 mg/dL [facility] Calcium [Mass/Vol] 9.0 mg/dL 8.4 - 10. 4 mg/dL [facility] Chloride [Moles/Vol] 93 mmol/L Low 98 - 10 7 mmol/L [facility] CO2 [Moles/Vol] 35 mmol/L High 22 - 30 mmol/L [facility] Creatinine [Mass/Vol] 1.33 mg/dL High 0.52 - 1.04 mg/dL [facility] GFR/1.73 sq M.predicted MDRD (S/P/Bld) [Vol rate/Area] 44.2 mL/min/{1.73_m2} Low - PINF [facility] Comment on above: Calculation based on the Chronic Kidney Disease Epidemiology Collaboration (CKD-EPI) equation refit without adjustment for race Glucose [Mass/Vol] 99 mg/dL 70 - 100 mg/dL [facility] Interpretation and review of laboratory results Abnormal [facility] Potassium [Moles/Vol] 2.3 mmol/L Critically low 3.5 - 5.1 mmol/L [facility] Protein [Mass/Vol] 7.1 g/dL 6.3 - 8.2 g/dL [facility] Sodium [Moles/Vol] 140 mmol/L 135 - 145 mmol/L [facility] Urea nitrogen [Mass/Vol] 36 mg/dL High 7 - 17 mg/d L [facility] Laboratory - Chemistry and C hemistry - challengeon 09-19-2023 Troponin I.cardiac [Mass/Vol] 0.031 ng/mL [facility] - 0.034 ng/mL [facility] Troponin I.cardiac [Mass/Vol] 0.025 ng/mL [facility] - 0.034 ng/mL [facility] Laboratory - Chemistry and C hemistry - challengeOrdered By: Rosa Elena Puente on 09-19-2023 Base excess Calc (BldV) [Moles/Vol] 4.1 mmol/L High -3.0 - 3.0 mmol/L [facility] CO2 (BldV) [Partial pressure] 49.6 mm[Hg] [facility] CO2 [Moles/Vol] 31.4 mmol/L High 23.0 - 30.0 mmol/L [facility] HCO3 (Bld) [Moles/Vol] 29.9 mmol/L 21.0 - 30.0 mmol/L [facility] Oxygen (BldV) [Partial pressure] 50.1 mm[Hg] mm Hg [facility] pH (BldV) 7.398 [pH] 7.320 - 7.420 [facility] Laboratory - Hematology and Cell countsOrdered By: Rosa Elena Puente on 09-19-2023 Hemoglobin (Bld) [Mass/Vol] 13.4 g/dL Screen only [facility] No Panel InformationOrdered By: Rosa Elena Puente on 09-19-2023 Interpretation and review of laboratory results Abnormal [facility] Source Of Oxygen Nasal cannula [facility] Assessment of oxygenation is best done with an arterial blood gas determination. Reference ranges for pO2, bicarbonate, and base excess are for mixed venous blood. Specimens drawn from a peripheral vein will often have higher values. [facility] No Panel Informationon 09-18 P Hammond 25 degrees [facility] AR Interval 140 ms [facility] QRS Hammond -48 degrees [facility] QRSD Interval 103 ms [facility] Interval 468 ms [facility] QTC Interval 594 ms [facility] T Wave Hammond 0 degrees [facility] Sinus rhythm Inferior infarct, old Prolonged QT interval No significant changes compared to previous Electronically Signed On 09-19-2023 18:04:00 EDT by Jono Robertson MD - 09/19/2023 IMPRESSION: Sinus rhythm Inferior infarct, old Prolonged QT interval No significant changes compared to previous Electronically Signed On 09-19-2023 18:04:00 EDT by Jono Weathers [facility] Impression: No acute osseous abnormality. Nonspecific [...] Electronically Signed Date/Time: 09/19/2023 6:01 PM [facility] [employer] [facility] Radiographic feature s suggestive of [...] Electronically Signed Date/Time: 09/19/2023 5:26 PM [facility] Radiology Study observation (narrative) [facility] No Panel InformationOrdered By: Clark Duffy on 09-19-2023 [facility] [email or web address] Work Phone: Troponin I.cardiac [Mass/Vol ]on 09-19-2023 Interpretation and review of laboratory results Normal [facility] Patients with high levels of Biotin oral intake (ie >5 mg/day) may have falsely decreased Troponin levels. [facility] Interpretation and review of laboratory results Normal [facility] Patients with high levels of Biotin oral intake (ie >5 mg/day) may have falsely decreased Troponin levels. [facility] Urinalysis complete panel (U )Ordered By: Chrissy Alexandra on 09-19-2023 Bacteria LM.HPF (Urine sed) [#/Area] Negative Negative /HPF [facility] Bilirubin Ql (U) Negative Negative mg/dL [facility] Clarity (U) Clear Clear [facility] Color (U) Yellow Lt. Yellow [facility] Epithelial cells.squamous LM.HPF (Urine sed) [#/Area] 0-2 [facility] h Glucose Ql (U) Normal Normal (<70) mg/dL [facility] Hemoglobin Ql (U) Negative Negative mg/dL [facility] Hyaline casts Auto (Urine sed) [#/Area] 3-5 Abnormal Negative /LPF [facility] Interpretation and review of laboratory results Abnormal [facility] Ketones (U) [Mass/Vol] Negative Negat kenton mg/dL [facility] Leukocyte esterase Test strip Ql (U) Negative Negative Sandra/uL [facility] Mucus LM.HPF (Urine sed) [#/Area] Few Negative /LPF [facility] Nitrite Ql (U) Negative Negative [facility] th Non-Squamous Epithalial Cells, Urine 0-2 Abnormal Negative /HPF [facility] pH (U) 5.5 [pH] 5.0 - 8.0 pH [facility] Protein (U) [Mass/Vol] 20 mg/dL Abnormal Negative [facility] RBC LM.HPF (Urine sed) [#/Area] 0-2 [facility] Specific gravity (U) [Rel density] 1.018 1.005 - 1.030 [facility] Urobilinogen (U) [Mass/Vol] Normal Normal (0-1) mg/dL [facility] WBC LM.HPF (Urine sed) [#/Area] 3-5 [facility] Vital signsOrdered By: Rosa Elena Puente on 09-19-2023 Oxygen saturation in Venous blood 85.8 % [facility] Vital signson 09-19-2023 Heart rate 97 /min bpm [facility] XR Chest 2 Viewson Patient [...] the midthoracic region with thoracic kyphosis. [facility] Clark Duffy MD - 09/19/2023 [...] Electronically Signed Date/Time: 09/19/2023 5:26 PM EDT [facility] Radiology Study observation (narrative) Abe German [...] the midthoracic region with thoracic kyphosis. [facility] Clark Duffy MD - 09/19/2023 [...] Electronically Signed Date/Time: 09/19/2023 5:26 PM EDT [facility] Radiology Study observation (narrative) Abe paz Leigh 09-08-2023 CNOV Office Visit (FAMDNA ) GONZALO DELUCA ([id number]) 1955 F Date Time Provider Department 09/08/23 [...] Mirtazapine (REMER (more content not included)... Normal [facility] Helen 09-06-2023 [place] Telephone ([facility]) GONZALO DELUCA ([id number]) 1955 F Date Time Provider Department 09/06/23 HERMINIA CASE During your visit today, we recorded the following information about you: Lala Shelley 09/06/2023 12:30 PM Signed Gonzalo is calling Herminia Case MD today with concern regarding Electronic Communication (FAX from [facility] is going to be coming over that needs to be faxed back to them ) Patient has been identified by name and birthdate. Duration of symptoms: N/A Person calling: self daughter: Karishma Call patient at: at home [phone] (home) [phone] (cell) Was an appointment scheduled: No Closing statement: Results or non-symptom based questions: Thank you for calling [facility], your call will be returned within the next business day. Lala Whit Pugh LPN 09/07/2023 9:05 AM Signed LM for patient letting her know we have not received the form from [facility]. Whit Shay LPN Allergies As of Date: 09/06/2023 Noted Allergy Reaction SEASONAL ALLERGIES 08/16/2017 5 - Intolerance Date Reviewed: 05/02/2023 Reviewed by: Whit Shay LPN - Fully Assessed Reason for Visit: Electronic Communication [890] Cmt: FAX from [facility] is going to be coming over [...] Status:Closed by WHIT SHAY on 09/07/23 Normal [facility] CBC W Auto Differential pane l (Bld)on 08-07-2023 Basophils (Bld) [#/Vol] 0.0 10*3/uL 0.0 - 0.2 10*3/uL [facility] [email or web address] Basophils/100 WBC (Bld) 0.3 % 0.0 - 2.0 % [facility] Eosinophils (Bld) [#/Vol] 0.1 10*3/uL 0.0 - 0.5 10*3/uL [facility] Eosinophils/100 WBC (Bld) 0.8 % 0.0 - 6.0 % [facility] Erythrocyte distribution width (RBC) [Ratio] 12.6 % 11.5 - 15.0 % [facility] Hematocrit (Bld) [Volume fraction] 39.2 % 35.0 - 47.0 % [facility] Hemoglobin (Bld) [Mass/Vol] 12.6 g/dL 11.7 - 16.0 g/dL [facility] Immature granulocytes (Bld) [#/Vol] 0.1 10*3/uL High NINF - 0.1 10*3/uL [facility] Immature granulocytes/100 WBC (Bld) 0.5 % 0.0 - 2.0 % [facility] Interpretation and review of laboratory results Abnormal [facility] Lymphocytes (Bld) [#/Vol] 1.0 10*3/uL 1.0 - 4.3 10*3/uL [facility] Lymphocytes/100 WBC (Bld) 9.6 % Low 15.0 - 45.0 % [facility] MCH (RBC) [Entitic mass] 30.9 pg 26. 0 - 34.0 pg [facility] MCHC (RBC) [Mass/Vol] 32.1 % 30.5 - 36.0 % [facility] MCV (RBC) [Entitic vol] 96.1 fL 77.0 - 99.0 fL [facility] Monocytes (Bld) [#/Vol] 1.3 10*3/uL High 0.0 - 0.9 10*3/uL [facility] Monocytes/100 WBC (Bld) 12.9 % 5.0 - 13.0 % [facility] Neutrophils (Bld) [#/Vol] 7.8 10*3/uL High 1.8 - 7.5 10*3/uL [facility] Neutrophils/100 WBC (Bld) 75.9 % 38.0 - 82.0 % [facility] Nucleated RBC/100 WBC (Bld) [Ratio] 0.0 % [facility] Platelet mean volume (Bld) [Entitic vol] 9.8 fL 9.0 - 12.7 fL [facility] Platelets (Bld) [#/Vol] 351 10*3/uL 140 - 440 10*3/uL [facility] RBC (Bld) [#/Vol] 4.08 10*6/uL 3.80 - 5.2 0 10*6/uL [facility] WBC (Bld) [#/Vol] 10.3 10*3/uL 3.6 - 10.7 10*3/uL [facility] COVID-19, Flu A/B, and RSV C omboon 08-07-2023 Interpretation and review of laboratory results Normal [facility] Comprehensive metabolic 1998 panelon 08-07-2023 Albumin [Mass/Vol] 4.0 g/dL 3.5 - 5.0 g/dL [facility] ALP [Catalytic activity/Vol] 282 U/L High 38 - 126 U/L [facility] ALT [Catalytic activity/Vol] 47 U/L High 0 - 34 U/L [facility] Anion gap [Moles/Vol] 11 mmol/L 3 - 13 mmol/L [facility] AST [Catalytic activity/Vol] 62 U/L High 15 - 46 U/L [facility] Bilirubin [Mass/Vol] 1.1 mg/dL 0.2 - 1 .3 mg/dL [facility] Calcium [Mass/Vol] 9.2 mg/dL 8.4 - 10. 4 mg/dL [facility] Chloride [Moles/Vol] 96 mmol/L Low 98 - 10 7 mmol/L [facility] CO2 [Moles/Vol] 35 mmol/L High 22 - 30 mmol/L [facility] Creatinine [Mass/Vol] 0.57 mg/dL 0.52 - 1.04 mg/dL [facility] GFR/1.73 sq M.predicted MDRD (S/P/Bld) [Vol rate/Area] - PINF [facility] Comment on above: Calculation based on the Chronic Kidney Disease Epidemiology Collaboration (CKD-EPI) equation refit without adjustment for race Glucose [Mass/Vol] 119 mg/dL High 70 - 100 mg/dL [facility] Interpretation and review of laboratory results Abnormal [facility] Potassium [Moles/Vol] 3.1 mmol/L Low 3.5 - 5.1 mmol/L [facility] Protein [Mass/Vol] 7.9 g/dL 6.3 - 8.2 g/dL [facility] Sodium [Moles/Vol] 142 mmol/L 135 - 145 mmol/L [facility] Urea nitrogen [Mass/Vol] 10 mg/dL 7 - 17 mg/d L [facility] CHEMISTRY SPECIMEN MODERATELY HEMOLYZED; INTERPRET WITH CAUTION! [facility] Laboratory - Chemistry and C hemistry - challengeon 08-07-2023 Lactate [Moles/Vol] 2.0 mmol/L 0.7 - 2. 0 mmol/L [facility] Laboratory - Microbiology an d Antimicrobial susceptibilityon 08-07-2023 FLUAV RNA MILANA+probe Ql (Resp) Not detected Not Detected [facility] FLUBV RNA MILANA+probe Ql (Resp) Not detected Not Detected [facility] RSV RNA MILANA+probe Ql (Resp) Not detected Not Detected [facility] SARS-CoV-2 (COVID-19) RNA MILANA+probe Ql (Resp) Not detected Not Detected [facility] SARS-CoV-2 (COVID-19) RNA MILANA+probe Ql (Unsp spec) Methodology: real-time, RT-PCR The SARS-CoV-2, Flu A/B, and RSV Combo assay is intended for in vitro diagnostic use under the FDA Emergency Use Authorization (EUA). This test has not been FDA cleared or approved. In compliance with this authorization, please visit www.fda.gov/media/1428 35/download or www.fda.gov/media/1429 36/download to access the applicable information sheets. [facility] No Panel Informationon 08-06 Interpretation and review of laboratory results Normal [facility] P [place] 38 degrees [facility] AR Interval 137 ms [facility] QRS [place] -35 degrees [facility] QRSD Interval 95 ms [facility] QT Interval 246 ms [facility] QTC Interval 299 ms [facility] T Wave [place] 0 degrees [facility] Sinus rhythm Inferior infarct, old Electronically Signed On 08-07-2023 15:06:03 EDT by Lorenzo Jimenez MD - 08/07/2023 IMPRESSION: Sinus rhythm Inferior infarct, old Electronically Signed On 08-07-2023 15:06:03 EDT by Lorenzo Orozco [facility] Vital signson 08-07-2023 Heart rate 89 /min bpm [facility] XR Chest Single viewon 08-06 [...] Signed Date/Time: 08/07/2023 4:05 PM EDT [facility] Patient Name: GONZALO DELUCA : [...] was obtained and reviewed. Special views: None. 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 Amphetamines Confirm (U) [Mass/Vol] Negative Negative [facility] Barbiturates Urine Negative Negative [facility] Benzodiazepines Urine Negative Negative [facility] Cannabinoids Screen Ql (U) Positive Abnormal Negative [facility] Cocaine Ql (U) Negative Negative [facility] Ethanol (U) [Mass/Vol] <11 mg/dL Cl [facility] Opiates Screen Ql (U) Negative Negative [facility] oxyCODONE cutoff Screen (U) [Mass/Vol] Positive Abnormal Negative [facility] Phencyclidine Ql (U) Negative Negative [facility] Basic metabolic 1998 panelon 02-18-2023 Anion gap [Moles/Vol] 5 mmol/L 3 - 13 mmol/L [facility] Calcium [Mass/Vol] 8.2 mg/dL Low 8.4 - 10. 4 mg/dL [facility] Chloride [Moles/Vol] 107 mmol/L 98 - 10 7 mmol/L [facility] CO2 [Moles/Vol] 28 mmol/L 22 - 30 mmol/L [facility] Creatinine [Mass/Vol] 0.55 mg/dL 0.52 - 1.04 mg/dL [facility] GFR/1.73 sq M.predicted MDRD (S/P/Bld) [Vol rate/Area] - PINF [facility] Comment on above: Calculation based on the Chronic Kidney Disease Epidemiology Collaboration (CKD-EPI) equation refit without adjustment for race Glucose [Mass/Vol] 113 mg/dL High 70 - 100 mg/dL [facility] Interpretation and review of laboratory results Abnormal [facility] Potassium [Moles/Vol] 3.8 mmol/L 3.5 - 5.1 mmol/L [facility] Sodium [Moles/Vol] 140 mmol/L 135 - 145 mmol/L [facility] Urea nitrogen [Mass/Vol] 14 mg/dL 7 - 17 mg/d L [facility] CBC W Auto Differential pane l (Bld)Ordered By: Yair Sanchez on 02-18-2023 Basophils (Bld) [#/Vol] 0.0 10*3/uL 0.0 - 0.2 10*3/uL [facility] Basophils/100 WBC (Bld) 0.7 % 0.0 - 2.0 % [facility] Eosinophils (Bld) [#/Vol] 0.4 10*3/uL 0.0 - 0.5 10*3/uL [facility] Eosinophils/100 WBC (Bld) 7.3 % High 1.0 - 6.0 % [facility] Erythrocyte distribution width (RBC) [Ratio] 14.0 % 11.5 - 14.5 % [facility] Hematocrit (Bld) [Volume fraction] 30.7 % Low 35.0 - 47.0 % [facility] Hemoglobin (Bld) [Mass/Vol] 10.0 g/dL Low 11.7 - 16.0 g/dL [facility] Interpretation and review of laboratory results Abnormal [facility] Lymphocytes (Bld) [#/Vol] 0.8 10*3/uL Low 1.0 - 4.3 10*3/uL [facility] Lymphocytes/100 WBC (Bld) 15.3 % Low 20.0 - 40.0 % [facility] MCH (RBC) [Entitic mass] 31.1 pg 26. 0 - 34.0 pg [facility] MCHC (RBC) [Mass/Vol] 32.7 % 32.0 - 36.0 % [facility] MCV (RBC) [Entitic vol] 95.1 fL 80.0 - 98.0 fL [facility] Monocytes (Bld) [#/Vol] 0.4 10*3/uL 0.0 - 0.8 10*3/uL [facility] Monocytes/100 WBC (Bld) 8.6 % 2.0 - 10.0 % [facility] Neutrophils (Bld) [#/Vol] 3.5 10*3/uL 1.8 - 7.0 10*3/uL [facility] Neutrophils/100 WBC (Bld) 68.1 % 40.0 - 80.0 % [facility] Nucleated RBC/100 WBC (Bld) [Ratio] 0.0 % [facility] Platelet mean volume (Bld) [Entitic vol] 7.3 fL Low 7.4 - 12.4 fL [facility] Platelets (Bld) [#/Vol] 178 10*3/uL 140 - 440 10*3/uL [facility] RBC (Bld) [#/Vol] 3.23 10*6/uL Low 3.8 - 5.20 10*6/uL [facility] WBC (Bld) [#/Vol] 5.1 10*3/uL 3.6 - 10.7 10*3/uL [facility] Laboratory - Microbiology an d Antimicrobial susceptibilityOrdered By: Savanna Cerrato on 02-18-2023 SARS-CoV-2 (COVID-19) Ag IA.rapid Ql (Resp) Negative Negative [facility] Comment on above: A negative result do es not rule out the possibility of SARS-CoV-2 infection. NAAT-based methods should be considered for symptomatic patients presenting greater than seven days after onset of symptoms. Method: Lateral flow immunoassay. Fact sheets for healthcare providers and patients can be found at the following sites: https://www.fda.gov/media/543233/download https://www.fda.gov/media/887224/download SARS-CoV-2 (COVID-19) Ag IA. rapid Ql (Resp)Ordered By: Savanna Cerrato on 02-18-2023 Interpretation and review of laboratory results Normal [facility] Basic metabolic 1998 panelon 02-17-2023 Anion gap [Moles/Vol] 7 mmol/L 3 - 13 mmol/L [facility] Calcium [Mass/Vol] 8.5 mg/dL 8.4 - 10. 4 mg/dL [facility] Chloride [Moles/Vol] 106 mmol/L 98 - 10 7 mmol/L [facility] CO2 [Moles/Vol] 28 mmol/L 22 - 30 mmol/L [facility] Creatinine [Mass/Vol] 0.49 mg/dL Low 0.52 - 1.04 mg/dL [facility] GFR/1.73 sq M.predicted MDRD (S/P/Bld) [Vol rate/Area] - PINF [facility] Comment on above: Calculation based on the Chronic Kidney Disease Epidemiology Collaboration (CKD-EPI) equation refit without adjustment for race Glucose [Mass/Vol] 115 mg/dL High 70 - 100 mg/dL [facility] Interpretation and review of laboratory results Abnormal [facility] Potassium [Moles/Vol] 3.7 mmol/L 3.5 - 5.1 mmol/L [facility] Sodium [Moles/Vol] 141 mmol/L 135 - 145 mmol/L [facility] Urea nitrogen [Mass/Vol] 14 mg/dL 7 - 17 mg/d L [facility] NM Bone Limited Viewson 01-21 Moderately intense [...] MD Electronically Signed Date/Time: 02/17/2023 4:36 PM [facility] Patient Name: GONZALO DEL[facility]CA [facility] 1955 [id number] Exam Date/Time: 02/17/2023 10:41 Procedure: NM BONE [...] plain films of the lumbar spine. [facility] Dave Farmer MD - 02/17/2023 [...] Electronically Signed Date/Time: 02/17/2023 4:36 PM EST [facility] Radiology Study observation (narrative) [facility]th NM Bone Limited ViewsOrdered By: Dave Farmer on 02-17-2023 [facility] Basic metabolic 1998 panelon 02-16-2023 Anion gap [Moles/Vol] 2 mmol/L Low 3 - 13 mmol/L [facility] Calcium [Mass/Vol] 8.3 mg/dL Low 8.4 - 10. 4 mg/dL [facility] Chloride [Moles/Vol] 105 mmol/L 98 - 10 7 mmol/L [facility] CO2 [Moles/Vol] 32 mmol/L High 22 - 30 mmol/L [facility] Creatinine [Mass/Vol] 0.58 mg/dL 0.52 - 1.04 mg/dL [facility] GFR/1.73 sq M.predicted MDRD (S/P/Bld) [Vol rate/Area] - PINF [facility] Comment on above: Calculation based on the Chronic Kidney Disease Epidemiology Collaboration (CKD-EPI) equation refit without adjustment for race Glucose [Mass/Vol] 117 mg/dL High 70 - 100 mg/dL [facility] Interpretation and review of laboratory results Abnormal [facility] Potassium [Moles/Vol] 3.3 mmol/L Low 3.5 - 5.1 mmol/L [facility] Sodium [Moles/Vol] 139 mmol/L 135 - 145 mmol/L [facility] Urea nitrogen [Mass/Vol] 16 mg/dL 7 - 17 mg/d L [facility] Laboratory - Chemistry and C hemistry - challengeon 02-16-2023 Magnesium [Mass/Vol] 1.9 mg/dL 1.6 - 2 .3 mg/dL [facility] Magnesium [Mass/Vol]on 02-16 Interpretation and review of laboratory results Normal [facility] Basic metabolic 1997 panelon 02-15-2023 Anion gap [Moles/Vol] 6 mmol/L 3 - 13 mmol/L [facility] Calcium [Mass/Vol] 8.4 mg/dL 8.4 - 10. 4 mg/dL [facility] Chloride [Moles/Vol] 104 mmol/L 98 - 10 7 mmol/L [facility] CO2 [Moles/Vol] 28 mmol/L 22 - 30 mmol/L [facility] Creatinine [Mass/Vol] 0.52 mg/dL 0.52 - 1.04 mg/dL [facility] GFR/1.73 sq M.predicted MDRD (S/P/Bld) [Vol rate/Area] - PINF [facility] Comment on above: Calculation based on the Chronic Kidney Disease Epidemiology Collaboration (CKD-EPI) equation refit without adjustment for race Glucose [Mass/Vol] 91 mg/dL 70 - 100 mg/dL [facility] Interpretation and review of laboratory results Abnormal [facility] Potassium [Moles/Vol] 3.2 mmol/L Low 3.5 - 5.1 mmol/L [facility] Sodium [Moles/Vol] 138 mmol/L 135 - 145 mmol/L [facility] Urea nitrogen [Mass/Vol] 15 mg/dL 7 - 17 mg/d L [facility] CBC panel Auto (Bld)Ordered By: Rosa Ruiz on 02-15-2023 Erythrocyte distribution width (RBC) [Ratio] 13.8 % 11.5 - 14.5 % [facility] Hematocrit (Bld) [Volume fraction] 31.2 % Low 35.0 - 47.0 % [facility] Hemoglobin (Bld) [Mass/Vol] 10.6 g/dL Low 11.7 - 16.0 g/dL [facility] Interpretation and review of laboratory results Abnormal [facility] MCH (RBC) [Entitic mass] 31.5 pg 26. 0 - 34.0 pg [facility] MCHC (RBC) [Mass/Vol] 33.9 % 32.0 - 36.0 % [facility] MCV (RBC) [Entitic vol] 92.9 fL 80.0 - 98.0 fL [facility] Platelet mean volume (Bld) [Entitic vol] 7.7 fL 7.4 - 12.4 fL [facility] Platelets (Bld) [#/Vol] 163 10*3/uL 140 - 440 10*3/uL [facility] RBC (Bld) [#/Vol] 3.36 10*6/uL Low 3.8 - 5.20 10*6/uL [facility] WBC (Bld) [#/Vol] 5.2 10*3/uL 3.6 - 10.7 10*3/uL [facility] Laboratory - Chemistry and C hemistry - challengeon 02-15-2023 Magnesium [Mass/Vol] 1.9 mg/dL 1.6 - 2 .3 mg/dL [facility] Magnesium [Mass/Vol]on 02-15 Interpretation and review of laboratory results Normal [facility] 25-hydroxyvitamin D3 [Mass/V ol]on 02-14-2023 Interpretation and review of laboratory results Normal [facility] Therapy is based on measurement of Total 25-OHD with the following classification levels: Less than 20 ng/mL: Indicative of Vit D deficiency 20-30 ng/mL: Suggests Vit D insufficiency Optimal: Greater than or equal to 30 ng/mL Test performed by [employer] Immunoassay, measuring Total Vitamin D, not individual fractions. [facility] Laboratory - Chemistry and C hemistry - challengeon 02-14-2023 25-hydroxyvitamin D3 [Mass/Vol] 37 ng/mL 30 - 100 ng/mL [facility] Basic metabolic 1998 panelon 02-13-2023 Anion gap [Moles/Vol] 7 mmol/L 3 - 13 mmol/L [facility] Calcium [Mass/Vol] 9.1 mg/dL 8.4 - 10. 4 mg/dL [facility] Chloride [Moles/Vol] 98 mmol/L 98 - 10 7 mmol/L [facility] CO2 [Moles/Vol] 32 mmol/L High 22 - 30 mmol/L [facility] Creatinine [Mass/Vol] 0.50 mg/dL Low 0.52 - 1.04 mg/dL [facility] GFR/1.73 sq M.predicted MDRD (S/P/Bld) [Vol rate/Area] - PINF [facility] Comment on above: Calculation based on the Chronic Kidney Disease Epidemiology Collaboration (CKD-EPI) equation refit without adjustment for race Glucose [Mass/Vol] 96 mg/dL 70 - 100 mg/dL [facility] Interpretation and review of laboratory results Abnormal [facility] Potassium [Moles/Vol] 3.7 mmol/L 3.5 - 5.1 mmol/L [facility] Sodium [Moles/Vol] 137 mmol/L 135 - 145 mmol/L [facility] Urea nitrogen [Mass/Vol] 13 mg/dL 7 - 17 mg/d L [facility] CBC W Auto Differential pane l (Bld)Ordered By: Kina Valverde on 02-13-2023 Basophils (Bld) [#/Vol] 0.0 10*3/uL 0.0 - 0.2 10*3/uL [facility] Basophils/100 WBC (Bld) 0.3 % 0.0 - 2.0 % [facility] Eosinophils (Bld) [#/Vol] 0.1 10*3/uL 0.0 - 0.5 10*3/uL [facility] Eosinophils/100 WBC (Bld) 0.9 % Low 1.0 - 6.0 % [facility] Erythrocyte distribution width (RBC) [Ratio] 13.8 % 11.5 - 14.5 % [facility] Hematocrit (Bld) [Volume fraction] 36.2 % 35.0 - 47.0 % [facility] Hemoglobin (Bld) [Mass/Vol] 11.9 g/dL 11.7 - 16.0 g/dL [facility] Interpretation and review of laboratory results Abnormal [facility] Lymphocytes (Bld) [#/Vol] 0.7 10*3/uL Low 1.0 - 4.3 10*3/uL [facility] Lymphocytes/100 WBC (Bld) 6.4 % Low 20.0 - 40.0 % [facility] MCH (RBC) [Entitic mass] 30.7 pg 26. 0 - 34.0 pg [facility] MCHC (RBC) [Mass/Vol] 32.7 % 32.0 - 36.0 % [facility] MCV (RBC) [Entitic vol] 93.9 fL 80.0 - 98.0 fL [facility] Monocytes (Bld) [#/Vol] 0.4 10*3/uL 0.0 - 0.8 10*3/uL [facility] Monocytes/100 WBC (Bld) 3.7 % 2.0 - 10.0 % [facility] Neutrophils (Bld) [#/Vol] 9.9 10*3/uL High 1.8 - 7.0 10*3/uL [facility] Neutrophils/100 WBC (Bld) 88.7 % High 40.0 - 80.0 % [facility] Nucleated RBC/100 WBC (Bld) [Ratio] 0.0 % [facility] Platelet mean volume (Bld) [Entitic vol] 7.3 fL Low 7.4 - 12.4 fL [facility] Platelets (Bld) [#/Vol] 212 10*3/uL 140 - 440 10*3/uL [facility] RBC (Bld) [#/Vol] 3.86 10*6/uL 3.8 - 5.20 10*6/uL [facility] [email or web address] WBC (Bld) [#/Vol] 11.1 10*3/uL High 3.6 - 10.7 10*3/uL [facility] XR Lumbar spine 2 or 3 Views on 02-13-2023 1. Multilevel, possible insufficiency compressive changes in the L2-L4 levels, mild and new in the L2 and L4 levels and moderate in the L3 level, similar to comparison. No other, acute osseous abnormality. 2. Degenerative change. Report Dictated on Electronically Signed By: Gianni Avila MD Electronically Signed Date/Time: 02/13/2023 8:25 PM EST [employer] Patient Name: GONZALO DELUCA : 1955 [...] similar. Paraspinal soft tissues grossly unremarkable. [facility] [employer] Gianni Avila MD - 02/13/2023 Patient [...] MD Electronically Signed Date/Time: 02/13/2023 8:25 PM [facility] Radiology Study observation (narrative) [facility] XR Shoulder - left 2 Viewson 02-13-2023 1. No acute osseous abnormality. 2. Remote posttraumatic and mild degenerative change. Report Dictated on Electronically Signed By: Gianni Avila MD Electronically Signed Date/Time: 02/13/2023 8:17 PM [employer] Patient Name: GONZALO DELUCA [facility] 1955 [id number] Exam Date/Time: 02/13/2023 20:13 Procedure: XR SHOULDER [...] grossly unremarkable. Left-sided portacatheter again noted. [facility] [employer] Gianni Avila MD - 02/13/2023 Patient Name: GONZALO DELUCA : 1955 [id number] Exam Date/Time: 02/13/2023 20:13 Procedure: XR SHOULDER [...] Electronically Signed Date/Time: 02/13/2023 8:17 PM EST [facility] Radiology Study observation (narrative) [facility] XR Shoulder - left 2 ViewsOr dered By: Gianni Avila on 02-13-2023 [facility] [email or web address] Work Phone: Basic metabolic 1998 panelon 11-08-2022 Anion gap [Moles/Vol] 3 mmol/L 3 - 13 mmol/L [facility] [email or web address] Calcium [Mass/Vol] 8.1 mg/dL Low 8.4 - 10. 4 mg/dL [facility] [email or web address] Chloride [Moles/Vol] 105 mmol/L 98 - 10 7 mmol/L [facility] CO2 [Moles/Vol] 27 mmol/L 22 - 30 mmol/L [facility] Creatinine [Mass/Vol] 0.65 mg/dL 0.52 - 1.04 mg/dL [facility] [email or web address] GFR/1.73 sq M.predicted MDRD (S/P/Bld) [Vol rate/Area] - PINF [facility] Comment on above: Calculation based on the Chronic Kidney Disease Epidemiology Collaboration (CKD-EPI) equation refit without adjustment for race Glucose [Mass/Vol] 142 mg/dL High 70 - 100 mg/dL [facility] Interpretation and review of laboratory results Abnormal [facility] Potassium [Moles/Vol] 4.1 mmol/L 3.5 - 5.1 mmol/L [facility] Sodium [Moles/Vol] 136 mmol/L 135 - 145 mmol/L [facility] Urea nitrogen [Mass/Vol] 19 mg/dL High 7 - 17 mg/d L [facility] CBC W Auto Differential pane l (Bld)Ordered By: Rolando Shelton on 11-08-2022 Basophils (Bld) [#/Vol] 0.1 10*3/uL 0.0 - 0.2 10*3/uL [facility] Basophils/100 WBC (Bld) 0.7 % 0.0 - 2.0 % [facility] Eosinophils (Bld) [#/Vol] 0.0 10*3/uL 0.0 - 0.5 10*3/uL [facility] Eosinophils/100 WBC (Bld) 0.0 % Low 1.0 - 6.0 % [facility] Erythrocyte distribution width (RBC) [Ratio] 14.7 % High 11.5 - 14.5 % [facility] Hematocrit (Bld) [Volume fraction] 29.9 % Low 35.0 - 47.0 % [facility] Hemoglobin (Bld) [Mass/Vol] 10.3 g/dL Low 11.7 - 16.0 g/dL [facility] Interpretation and review of laboratory results Abnormal [facility] Lymphocytes (Bld) [#/Vol] 0.5 10*3/uL Low 1.0 - 4.3 10*3/uL [facility] Lymphocytes/100 WBC (Bld) 5.5 % Low 20.0 - 40.0 % [facility] MCH (RBC) [Entitic mass] 32.0 pg 26. 0 - 34.0 pg [facility] MCHC (RBC) [Mass/Vol] 34.5 % 32.0 - 36.0 % [facility] MCV (RBC) [Entitic vol] 92.8 fL 80.0 - 98.0 fL [facility] Monocytes (Bld) [#/Vol] 0.6 10*3/uL 0.0 - 0.8 10*3/uL [facility] Monocytes/100 WBC (Bld) 6.8 % 2.0 - 10.0 % [facility] Neutrophils (Bld) [#/Vol] 7.9 10*3/uL High 1.8 - 7.0 10*3/uL [facility] Neutrophils/100 WBC (Bld) 87.0 % High 40.0 - 80.0 % [facility] Nucleated RBC/100 WBC (Bld) [Ratio] 0.0 % [facility] Platelet mean volume (Bld) [Entitic vol] 7.6 fL 7.4 - 12.4 fL [facility] Platelets (Bld) [#/Vol] 182 10*3/uL 140 - 440 10*3/uL [facility] RBC (Bld) [#/Vol] 3.23 10*6/uL Low 3.8 - 5.20 10*6/uL [facility] WBC (Bld) [#/Vol] 9.1 10*3/uL 3.6 - 10.7 10*3/uL [facility] Basic metabolic 1998 panelon 11-07-2022 Anion gap [Moles/Vol] 0 mmol/L Low 3 - 13 mmol/L [facility] Calcium [Mass/Vol] 8.3 mg/dL Low 8.4 - 10. 4 mg/dL [facility] Chloride [Moles/Vol] 106 mmol/L 98 - 10 7 mmol/L [facility] CO2 [Moles/Vol] 29 mmol/L 22 - 30 mmol/L [facility] Creatinine [Mass/Vol] 0.71 mg/dL 0.52 - 1.04 mg/dL [facility] GFR/1.73 sq M.predicted MDRD (S/P/Bld) [Vol rate/Area] - PINF [facility] Comment on above: Calculation based on the Chronic Kidney Disease Epidemiology Collaboration (CKD-EPI) equation refit without adjustment for race Glucose [Mass/Vol] 96 mg/dL 70 - 100 mg/dL [facility] Interpretation and review of laboratory results Abnormal [facility] Potassium [Moles/Vol] 3.8 mmol/L 3.5 - 5.1 mmol/L [facility] Sodium [Moles/Vol] 135 mmol/L 135 - 145 mmol/L [facility] Urea nitrogen [Mass/Vol] 14 mg/dL 7 - 17 mg/d L [facility] Slightly Hemolyzed [facility] CBC W Auto Differential pane l (Bld)Ordered By: Hakeem Cruz on 11-07-2022 Basophils (Bld) [#/Vol] 0.0 10*3/uL 0.0 - 0.2 10*3/uL [facility] Basophils/100 WBC (Bld) 0.4 % 0.0 - 2.0 % [facility] Eosinophils (Bld) [#/Vol] 0.5 10*3/uL 0.0 - 0.5 10*3/uL [facility] Eosinophils/100 WBC (Bld) 7.5 % High 1.0 - 6.0 % [facility] Erythrocyte distribution width (RBC) [Ratio] 14.8 % High 11.5 - 14.5 % [facility] Hematocrit (Bld) [Volume fraction] 33.8 % Low 35.0 - 47.0 % [facility] Hemoglobin (Bld) [Mass/Vol] 11.2 g/dL Low 11.7 - 16.0 g/dL [facility] Interpretation and review of laboratory results Abnormal [facility] Lymphocytes (Bld) [#/Vol] 0.7 10*3/uL Low 1.0 - 4.3 10*3/uL [facility] Lymphocytes/100 WBC (Bld) 12.2 % Low 20.0 - 40.0 % [facility] MCH (RBC) [Entitic mass] 31.0 pg 26. 0 - 34.0 pg [facility] MCHC (RBC) [Mass/Vol] 33.3 % 32.0 - 36.0 % [facility] MCV (RBC) [Entitic vol] 93.0 fL 80.0 - 98.0 fL [facility] Monocytes (Bld) [#/Vol] 0.5 10*3/uL 0.0 - 0.8 10*3/uL [facility] Monocytes/100 WBC (Bld) 7.5 % 2.0 - 10.0 % [facility] Neutrophils (Bld) [#/Vol] 4.4 10*3/uL 1.8 - 7.0 10*3/uL [facility] Neutrophils/100 WBC (Bld) 72.4 % 40.0 - 80.0 % [facility] Nucleated RBC/100 WBC (Bld) [Ratio] 0.0 % [facility] Platelet mean volume (Bld) [Entitic vol] 7.0 fL Low 7.4 - 12.4 fL [facility] [email or web address] Platelets (Bld) [#/Vol] 213 10*3/uL 140 - 440 10*3/uL [facility] [email or web address] RBC (Bld) [#/Vol] 3.63 10*6/uL Low 3.8 - 5.20 10*6/uL [facility] WBC (Bld) [#/Vol] 6.0 10*3/uL 3.6 - 10.7 10*3/uL [facility] No Panel Informationon 11-07 There is no interpretation needed for this exam. IMAGING Sinus rhythm Inferior infarct, old Electronically Signed On 11-07-2022 1:11:05 EDT by Melva Hull CV Melva Albrecht, - 11/07/2022 IMPRESSION: Sinus rhythm Inferior infarct, old Electronically Signed On 11-07-2022 1:11:05 EDT by Melva Hull [facility] No Panel InformationOrdered By: Melva Hull on 11-07-2022 P [place] 69 degrees [facility] Work Phone: AR Interval 152 ms [facility] Work Phone: QRS [place] -35 degrees [facility] Work Phone: QRSD Interval 98 ms [facility] Work Phone: QT Interval 395 ms [facility] Work Phone: QTC Interval 473 ms [facility] Work Phone: T Wave [place] -12 degrees [facility] Work Phone: [facility] Work Phone: Urinalysis complete panel (U )on 11-07-2022 Bilirubin Ql (U) Negative Negative mg/dL [facility] [email or web address] Clarity (U) Clear Clear [facility] [email or web address] Color (U) Yellow Lt. Yellow [facility] [email or web address] Glucose Ql (U) Normal Normal (<70) mg/dL [facility] Hemoglobin Ql (U) Negative Negative mg/dL [facility] Interpretation and review of laboratory results Normal [facility] Ketones (U) [Mass/Vol] Negative Negat kenton mg/dL [facility] Leukocyte esterase Test strip Ql (U) Negative Negative Sandra/uL [facility] Nitrite Ql (U) Negative Negative [facility] th pH (U) 6.5 [pH] 5.0 - 8.0 pH [facility] Protein (U) [Mass/Vol] Negative Negat kenton mg/dL [facility] Specific gravity (U) [Rel density] 1.025 1.005 - 1.030 [facility] Urobilinogen (U) [Mass/Vol] Normal Normal (0-1) mg/dL [facility] Vital signsOrdered By: Celio Hull on 11-07-2022 Heart rate 121 /min bpm [facility] Work Phone: Basic metabolic 1998 panelon 11-06-2022 Anion gap [Moles/Vol] 2 mmol/L Low 3 - 13 mmol/L [facility] Calcium [Mass/Vol] 8.4 mg/dL 8.4 - 10. 4 mg/dL [facility] Chloride [Moles/Vol] 105 mmol/L 98 - 10 7 mmol/L [facility] CO2 [Moles/Vol] 30 mmol/L 22 - 30 mmol/L [facility] Creatinine [Mass/Vol] 0.66 mg/dL 0.52 - 1.04 mg/dL [facility] GFR/1.73 sq M.predicted MDRD (S/P/Bld) [Vol rate/Area] - PINF [facility] Comment on above: Calculation based on the Chronic Kidney Disease Epidemiology Collaboration (CKD-EPI) equation refit without adjustment for race Glucose [Mass/Vol] 99 mg/dL 70 - 100 mg/dL [facility] Interpretation and review of laboratory results Abnormal [facility] Potassium [Moles/Vol] 3.5 mmol/L 3.5 - 5.1 mmol/L [facility] Sodium [Moles/Vol] 137 mmol/L 135 - 145 mmol/L [facility] Urea nitrogen [Mass/Vol] 12 mg/dL 7 - 17 mg/d L [facility] CBC panel Auto (Bld)Ordered By: Desiree Ho on 11-06-2022 Erythrocyte distribution width (RBC) [Ratio] 14.9 % High 11.5 - 14.5 % [facility] Hematocrit (Bld) [Volume fraction] 36.4 % 35.0 - 47.0 % [facility] Hemoglobin (Bld) [Mass/Vol] 12.1 g/dL 11.7 - 16.0 g/dL [facility] Interpretation and review of laboratory results Abnormal [facility] MCH (RBC) [Entitic mass] 31.0 pg 26. 0 - 34.0 pg [facility] MCHC (RBC) [Mass/Vol] 33.3 % 32.0 - 36.0 % [facility] MCV (RBC) [Entitic vol] 93.2 fL 80.0 - 98.0 fL [facility] Platelet mean volume (Bld) [Entitic vol] 7.2 fL Low 7.4 - 12.4 fL [facility] Platelets (Bld) [#/Vol] 238 10*3/uL 140 - 440 10*3/uL [facility] RBC (Bld) [#/Vol] 3.91 10*6/uL 3.8 - 5.20 10*6/uL [facility] WBC (Bld) [#/Vol] 10.3 10*3/uL 3.6 - 10.7 10*3/uL [facility] No Panel Informationon 11-06 Radiology Study observation (narrative) [facility] XR Hand - right 3 Viewson No fracture or acute osseous injury. Report Dictated on Electronically Signed By: Ankit Tripathi MD Electronically Signed Date/Time: 11/06/2022 2:14 PM EDT [facility] [place] [employer] Patient Name: GONZALO DELUCA : 1955 [...] Otherwise no significant productive or erosive arthropathy. [facility] Ankit Tripathi MD - 11/06/2022 [...] Electronically Signed Date/Time: 11/06/2022 2:14 PM EDT [email or web address] [facility] [email or web address] XR Hip - left 3 Viewson 10-19 Impression: Intertrochanteric left hip fracture, with foreshortening of the fracture fragments. Report Dictated on Electronically Signed By: Ankit Tripathi MD Electronically Signed Date/Time: 11/06/2022 2:28 PM EDT [facility] [place] [employer] Patient Name: GONZALO DELUCA : 1955 [...] of erosion or widening. Normal osseous mineralization. [facility] Ankit Tripathi MD - 11/06/2022 [...] Electronically Signed Date/Time: 11/06/2022 2:28 PM EDT [facility] XR Ribs - left 2 Viewson 1. No acute cardiopulmonary disease. 2. Pulmonary hyperinflation. 3. Normal ribs. Report Dictated on Electronically Signed By: Ankit Tripathi MD Electronically Signed Date/Time: 11/06/2022 2:26 PM EDT [facility] [place] [facility] Patient Name: GONZALO DELUCA : 1955 Exam Date/Time: 11/06/2022 14:18 Procedure: XR RIBS 2 VIEWS LEFT Ordering Provider: MCCANN JOSEPH Reason For Exam: Rib pain, fx suspected RIGHT RIBS AND CHEST CLINICAL INDICATION: Pain. TECHNIQUE: Three views were obtained COMPARISON: Correlation with chest radiograph May 21, 2022. FINDINGS: Stable appearance/location of the left-sided chest [id number]-[id number] line. The cardiac and mediastinal silhouettes are unremarkable. The hyperinflated lungs demonstrate no consolidation or area of atelectasis. The costophrenic angles are sharp. No pneumothorax is noted. The ribs demonstrate no evidence for fracture or bone lesion. [facility] [place] [facility] Ankit Tripathi MD - 11/06/2022 Patient Name: GONZALO DELUCA : 1955 [facility]#: [id number] Exam Date/Time: 11/06/2022 14:18 Procedure: XR RIBS 2 VIEWS LEFT Ordering Provider: MCCANN JOSEPH Reason For Exam: Rib pain, fx suspected RIGHT RIBS AND CHEST CLINICAL INDICATION: Pain. TECHNIQUE: Three views were obtained COMPARISON: Correlation with chest radiograph May 21, 2022. FINDINGS: Stable appearance/location of the left-sided chest Sgmgex-t-[id number] line. The cardiac and mediastinal silhouettes are [...] Electronically Signed Date/Time: 11/06/2022 2:26 PM EDT [facility] Radiology Study observation (narrative) [facility] XR Ribs - left 2 ViewsOrdere d By: Ankit Tripathi on 11-06-2022 [facility] Work Phone: CBC W Auto Differential pane l (Bld)on 09-15-2022 Basophils (Bld) [#/Vol] 0.05 10*3/uL <0.11 k/uL [facility] Basophils/100 WBC (Bld) 0.5 % C [facility] Differential cell count method Nom (Bld) Auto [facility] Eosinophils (Bld) [#/Vol] 0.49 10*3/uL High <0.46 k/uL [facility] Eosinophils/100 WBC (Bld) 5.0 % [facility] Erythrocyte distribution width (RBC) [Ratio] 14.9 % 11.5 - 15.0 % [facility] Hematocrit (Bld) [Volume fraction] 39.3 % 36.0 - 46.0 % [facility] Hemoglobin (Bld) [Mass/Vol] 12.1 g/dL 11.5 - 15.5 g/dL [facility] Immature granulocytes (Bld) [#/Vol] 0.04 10*3/uL <0.10 k/uL [facility] Immature granulocytes/100 WBC (Bld) 0.4 % [facility] Lymphocytes (Bld) [#/Vol] 0.94 10*3/uL Low 1.00 - 4.00 k/uL [facility] Lymphocytes/100 WBC (Bld) 9.7 % [facility] MCH (RBC) [Entitic mass] 30.2 pg 26. 0 - 34.0 pg [facility] MCHC (RBC) [Mass/Vol] 30.8 g/dL 30.5 - 36.0 g/dL [facility] MCV (RBC) [Entitic vol] 98.0 fL 80.0 - 100.0 fL [facility] Monocytes (Bld) [#/Vol] 0.73 10*3/uL <0.87 k/uL [facility] Monocytes/100 WBC (Bld) 7.5 % [facility] Neutrophils (Bld) [#/Vol] 7.47 10*3/uL 1.45 - 7.50 k/uL [facility] Neutrophils/100 WBC (Bld) 76.9 % [facility] Nucleated RBC (Bld) [#/Vol] <0.01 k/uL [facility] Nucleated RBC/100 WBC (Bld) [Ratio] 0.0 /100 WBC [facility] Platelet mean volume (Bld) [Entitic vol] 9.3 fL 9.0 - 12.7 fL [facility] Platelets (Bld) [#/Vol] 349 10*3/uL 150 - 400 k/uL [facility] RBC (Bld) [#/Vol] 4.01 10*6/uL 3.90 - 5.2 0 m/uL [facility] WBC (Bld) [#/Vol] 9.72 10*3/uL 3.70 - 11. 00 k/uL [facility] Comprehensive metabolic 2000 panelon 09-15-2022 Albumin [Mass/Vol] 4.0 g/dL 3.9 - 4.9 g/dL [facility] ALP [Catalytic activity/Vol] 148 U/L High 34 - 123 U/L [facility] ALT [Catalytic activity/Vol] 12 U/L 7 - 38 U/L [facility] Anion gap [Moles/Vol] 11 mmol/L 9 - 18 mmol/L [facility] AST [Catalytic activity/Vol] 17 U/L 13 - 35 U/L [facility] Bilirubin [Mass/Vol] 0.4 mg/dL 0.2 - 1 .3 mg/dL [facility] Calcium [Mass/Vol] 9.8 mg/dL 8.5 - 10. 2 mg/dL [facility] Chloride [Moles/Vol] 103 mmol/L 97 - 10 5 mmol/L [facility] CO2 [Moles/Vol] 28 mmol/L 22 - 30 mmol/L [facility] Creatinine [Mass/Vol] 0.64 mg/dL 0.58 - 0.96 mg/dL [facility] Estimated Glomerular Filtration Rate 98 mL/min/1.73m >=60 mL/min/1.73m [facility] Glucose [Mass/Vol] 84 mg/dL 74 - 99 mg/dL [facility] Potassium [Moles/Vol] 4.4 mmol/L 3.7 - 5.1 mmol/L [facility] Protein [Mass/Vol] 7.3 g/dL 6.3 - 8.0 g/dL [facility] Sodium [Moles/Vol] 142 mmol/L 136 - 144 mmol/L [facility] Urea nitrogen [Mass/Vol] 15 mg/dL 7 - 21 mg/d L [facility] Lipid 1996 panelon 3 Cholesterol [Mass/Vol] 169 mg/dL <200 mg/dL [facility] Cholesterol in HDL [Mass/Vol] 54 mg/dL >39 mg/dL [facility] Cholesterol in LDL [Mass/Vol] 85 mg/dL <100 mg/dL [facility] Cholesterol in LDL/Cholesterol in HDL [Mass ratio] 1.57 {ratio} <2.54 [facility] Cholesterol in VLDL [Mass/Vol] 30 mg/dL High <30 mg/dL [facility] Cholesterol non HDL [Mass/Vol] 115 mg/dL <130 mg/dL [facility] Cholesterol.total/Choles terol in HDL [Mass ratio] 3.13 {ratio} <5.10 [facility] Fasting Time 10 hrs [facility] Triglyceride [Mass/Vol] 150 mg/dL High <150 mg/dL [facility] Basic metabolic 1998 panelon 05-24-2022 Anion gap [Moles/Vol] 3 mmol/L 3 - 13 mmol/L [facility] Calcium [Mass/Vol] 8.4 mg/dL 8.4 - 10. 4 mg/dL [facility] Chloride [Moles/Vol] 106 mmol/L 98 - 10 7 mmol/L [facility] CO2 [Moles/Vol] 30 mmol/L 22 - 30 mmol/L [facility] Creatinine [Mass/Vol] 0.64 mg/dL 0.52 - 1.04 mg/dL [facility] GFR/1.73 sq M.predicted MDRD (S/P/Bld) [Vol rate/Area] - PINF [facility] Comment on above: Calculation based on the Chronic Kidney Disease Epidemiology Collaboration (CKD-EPI) equation refit without adjustment for race Glucose [Mass/Vol] 157 mg/dL High 70 - 100 mg/dL [facility] Interpretation and review of laboratory results Abnormal [facility] Potassium [Moles/Vol] 3.6 mmol/L 3.5 - 5.1 mmol/L [facility] Sodium [Moles/Vol] 139 mmol/L 135 - 145 mmol/L [facility] Urea nitrogen [Mass/Vol] 12 mg/dL 7 - 17 mg/d L [facility] CBC W Auto Differential pane l (Bld)on 05-24-2022 Basophils (Bld) [#/Vol] 0.0 10*3/uL 0.0 - 0.2 10*3/uL [facility] Basophils/100 WBC (Bld) 0.5 % 0.0 - 2.0 % [facility] Eosinophils (Bld) [#/Vol] 0.3 10*3/uL 0.0 - 0.5 10*3/uL [facility] Eosinophils/100 WBC (Bld) 3.0 % 1.0 - 6.0 % [facility] Erythrocyte distribution width (RBC) [Ratio] 13.5 % 11.5 - 14.5 % [facility] Hematocrit (Bld) [Volume fraction] 30.6 % Low 35.0 - 47.0 % [facility] Hemoglobin (Bld) [Mass/Vol] 10.0 g/dL Low 11.7 - 16.0 g/dL [facility] Interpretation and review of laboratory results Abnormal [facility] Lymphocytes (Bld) [#/Vol] 0.8 10*3/uL Low 1.0 - 4.3 10*3/uL [facility] [email or web address] Lymphocytes/100 WBC (Bld) 8.6 % Low 20.0 - 40.0 % [facility] [email or web address] MCH (RBC) [Entitic mass] 31.0 pg 26. 0 - 34.0 pg [facility] MCHC (RBC) [Mass/Vol] 32.6 % 32.0 - 36.0 % [facility] MCV (RBC) [Entitic vol] 95.1 fL 80.0 - 98.0 fL [facility] Monocytes (Bld) [#/Vol] 0.5 10*3/uL 0.0 - 0.8 10*3/uL [facility] Monocytes/100 WBC (Bld) 5.7 % 2.0 - 10.0 % [facility] Neutrophils (Bld) [#/Vol] 7.6 10*3/uL High 1.8 - 7.0 10*3/uL [facility] Neutrophils/100 WBC (Bld) 82.2 % High 40.0 - 80.0 % [facility] Nucleated RBC/100 WBC (Bld) [Ratio] 0.0 % [facility] [email or web address] Platelet mean volume (Bld) [Entitic vol] 7.1 fL Low 7.4 - 12.4 fL [facility] Platelets (Bld) [#/Vol] 261 10*3/uL 140 - 440 10*3/uL [facility] RBC (Bld) [#/Vol] 3.22 10*6/uL Low 3.8 - 5.20 10*6/uL [facility] WBC (Bld) [#/Vol] 9.3 10*3/uL 3.6 - 10.7 10*3/uL [facility] Basic metabolic 1998 panelon 05-23-2022 Anion gap [Moles/Vol] 2 mmol/L Low 3 - 13 mmol/L [facility] [email or web address] Calcium [Mass/Vol] 8.5 mg/dL 8.4 - 10. 4 mg/dL [facility] [email or web address] Chloride [Moles/Vol] 109 mmol/L High 98 - 10 7 mmol/L [facility] [email or web address] CO2 [Moles/Vol] 28 mmol/L 22 - 30 mmol/L [facility] [email or web address] Creatinine [Mass/Vol] 0.68 mg/dL 0.52 - 1.04 mg/dL [facility] GFR/1.73 sq M.predicted MDRD (S/P/Bld) [Vol rate/Area] - PINF [facility] Comment on above: Calculation based on the Chronic Kidney Disease Epidemiology Collaboration (CKD-EPI) equation refit without adjustment for race Glucose [Mass/Vol] 104 mg/dL High 70 - 100 mg/dL [facility] Interpretation and review of laboratory results Abnormal [facility] Potassium [Moles/Vol] 3.6 mmol/L 3.5 - 5.1 mmol/L [facility] Sodium [Moles/Vol] 138 mmol/L 135 - 145 mmol/L [facility] Urea nitrogen [Mass/Vol] 13 mg/dL 7 - 17 mg/d L [facility] CBC W Auto Differential pane l (Bld)Ordered By: Crystal Dupont on 05-23-2022 Basophils (Bld) [#/Vol] 0.1 10*3/uL 0.0 - 0.2 10*3/uL [facility] [email or web address] Basophils/100 WBC (Bld) 0.5 % 0.0 - 2.0 % [facility] Eosinophils (Bld) [#/Vol] 0.2 10*3/uL 0.0 - 0.5 10*3/uL [facility] Eosinophils/100 WBC (Bld) 2.5 % 1.0 - 6.0 % [facility] Erythrocyte distribution width (RBC) [Ratio] 13.9 % 11.5 - 14.5 % [facility] Hematocrit (Bld) [Volume fraction] 31.1 % Low 35.0 - 47.0 % [facility] Hemoglobin (Bld) [Mass/Vol] 10.3 g/dL Low 11.7 - 16.0 g/dL [facility] Interpretation and review of laboratory results Abnormal [facility] Lymphocytes (Bld) [#/Vol] 0.7 10*3/uL Low 1.0 - 4.3 10*3/uL [facility] Lymphocytes/100 WBC (Bld) 6.8 % Low 20.0 - 40.0 % [facility] MCH (RBC) [Entitic mass] 31.5 pg 26. 0 - 34.0 pg [facility] MCHC (RBC) [Mass/Vol] 33.1 % 32.0 - 36.0 % [facility] MCV (RBC) [Entitic vol] 95.1 fL 80.0 - 98.0 fL [facility] Monocytes (Bld) [#/Vol] 0.7 10*3/uL 0.0 - 0.8 10*3/uL [facility] Monocytes/100 WBC (Bld) 7.5 % 2.0 - 10.0 % [facility] Neutrophils (Bld) [#/Vol] 7.9 10*3/uL High 1.8 - 7.0 10*3/uL [facility] Neutrophils/100 WBC (Bld) 82.7 % High 40.0 - 80.0 % [facility] Nucleated RBC/100 WBC (Bld) [Ratio] 0.1 % [facility] [email or web address] Platelet mean volume (Bld) [Entitic vol] 6.7 fL Low 7.4 - 12.4 fL [facility] Platelets (Bld) [#/Vol] 248 10*3/uL 140 - 440 10*3/uL [facility] RBC (Bld) [#/Vol] 3.27 10*6/uL Low 3.8 - 5.20 10*6/uL [facility] WBC (Bld) [#/Vol] 9.6 10*3/uL 3.6 - 10.7 10*3/uL [facility] Laboratory - Chemistry and C hemistry - challengeon 05-23-2022 Magnesium [Mass/Vol] 1.9 mg/dL 1.6 - 2 .3 mg/dL [facility] Magnesium [Mass/Vol]on 05-23 Interpretation and review of laboratory results Normal [facility] No Panel Informationon 05-23 [facility] Basic metabolic 1998 panelon 05-22-2022 Anion gap [Moles/Vol] 2 mmol/L Low 3 - 13 mmol/L [facility] Calcium [Mass/Vol] 8.4 mg/dL 8.4 - 10. 4 mg/dL [facility] Chloride [Moles/Vol] 105 mmol/L 98 - 10 7 mmol/L [facility] CO2 [Moles/Vol] 30 mmol/L 22 - 30 mmol/L [facility] Creatinine [Mass/Vol] 0.69 mg/dL 0.52 - 1.04 mg/dL [facility] GFR/1.73 sq M.predicted MDRD (S/P/Bld) [Vol rate/Area] - PINF [facility] Comment on above: Calculation based on the Chronic Kidney Disease Epidemiology Collaboration (CKD-EPI) equation refit without adjustment for race Glucose [Mass/Vol] 86 mg/dL 70 - 100 mg/dL [facility] Interpretation and review of laboratory results Abnormal [facility] Potassium [Moles/Vol] 4.2 mmol/L 3.5 - 5.1 mmol/L [facility] Sodium [Moles/Vol] 137 mmol/L 135 - 145 mmol/L [facility] Urea nitrogen [Mass/Vol] 13 mg/dL 7 - 17 mg/d L [facility] CBC W Auto Differential pane l (Bld)Ordered By: Hakeem Cruz on 05-22-2022 Basophils (Bld) [#/Vol] 0.0 10*3/uL 0.0 - 0.2 10*3/uL [facility] Basophils/100 WBC (Bld) 0.5 % 0.0 - 2.0 % [facility] Eosinophils (Bld) [#/Vol] 0.3 10*3/uL 0.0 - 0.5 10*3/uL [facility] Eosinophils/100 WBC (Bld) 4.1 % 1.0 - 6.0 % [facility] Erythrocyte distribution width (RBC) [Ratio] 14.0 % 11.5 - 14.5 % [facility] Hematocrit (Bld) [Volume fraction] 33.0 % Low 35.0 - 47.0 % [facility] Hemoglobin (Bld) [Mass/Vol] 10.8 g/dL Low 11.7 - 16.0 g/dL [facility] Interpretation and review of laboratory results Abnormal [facility] Lymphocytes (Bld) [#/Vol] 1.0 10*3/uL 1.0 - 4.3 10*3/uL [facility] Lymphocytes/100 WBC (Bld) 12.8 % Low 20.0 - 40.0 % [facility] MCH (RBC) [Entitic mass] 31.2 pg 26. 0 - 34.0 pg [facility] MCHC (RBC) [Mass/Vol] 32.8 % 32.0 - 36.0 % [facility] MCV (RBC) [Entitic vol] 95.1 fL 80.0 - 98.0 fL [facility] Monocytes (Bld) [#/Vol] 0.6 10*3/uL 0.0 - 0.8 10*3/uL [facility] Monocytes/100 WBC (Bld) 8.6 % 2.0 - 10.0 % [facility] Neutrophils (Bld) [#/Vol] 5.6 10*3/uL 1.8 - 7.0 10*3/uL [facility] Neutrophils/100 WBC (Bld) 74.0 % 40.0 - 80.0 % [facility] Nucleated RBC/100 WBC (Bld) [Ratio] 0.0 % [facility] Platelet mean volume (Bld) [Entitic vol] 7.0 fL Low 7.4 - 12.4 fL [facility] Platelets (Bld) [#/Vol] 238 10*3/uL 140 - 440 10*3/uL [facility] RBC (Bld) [#/Vol] 3.47 10*6/uL Low 3.8 - 5.20 10*6/uL [facility] WBC (Bld) [#/Vol] 7.5 10*3/uL 3.6 - 10.7 10*3/uL [facility] Laboratory - Chemistry and C hemistry - challengeon 05-22-2022 Magnesium [Mass/Vol] 2.2 mg/dL 1.6 - 2 .3 mg/dL [facility] Magnesium [Mass/Vol]on 05-22 Interpretation and review of laboratory results Normal [facility] No Panel Informationon 05-22 [facility] Basic metabolic 1998 panelon 05-21-2022 Anion gap [Moles/Vol] 1 mmol/L Low 3 - 13 mmol/L [facility] Calcium [Mass/Vol] 9.1 mg/dL 8.4 - 10. 4 mg/dL [facility] Chloride [Moles/Vol] 103 mmol/L 98 - 10 7 mmol/L [facility] CO2 [Moles/Vol] 35 mmol/L High 22 - 30 mmol/L [facility] Creatinine [Mass/Vol] 0.78 mg/dL 0.52 - 1.04 mg/dL [facility] GFR/1.73 sq M.predicted MDRD (S/P/Bld) [Vol rate/Area] 84.4 mL/min/{1.73_m2} - PINF [facility] Comment on above: Calculation based on the Chronic Kidney Disease Epidemiology Collaboration (CKD-EPI) equation refit without adjustment for race Glucose [Mass/Vol] 116 mg/dL High 70 - 100 mg/dL [facility] Potassium [Moles/Vol] 4.2 mmol/L 3.5 - 5.1 mmol/L [facility] Sodium [Moles/Vol] 138 mmol/L 135 - 145 mmol/L [facility] Urea nitrogen [Mass/Vol] 15 mg/dL 7 - 17 mg/d L [facility] CBC W Auto Differential pane l (Bld)Ordered By: Yair Sanchez on 05-21-2022 Basophils (Bld) [#/Vol] 0.0 10*3/uL 0.0 - 0.2 10*3/uL [facility] Basophils/100 WBC (Bld) 0.2 % 0.0 - 2.0 % [facility] Eosinophils (Bld) [#/Vol] 0.2 10*3/uL 0.0 - 0.5 10*3/uL [facility] Eosinophils/100 WBC (Bld) 1.8 % 1.0 - 6.0 % [facility] Erythrocyte distribution width (RBC) [Ratio] 14.0 % 11.5 - 14.5 % [facility] Hematocrit (Bld) [Volume fraction] 39.0 % 35.0 - 47.0 % [facility] Hemoglobin (Bld) [Mass/Vol] 12.5 g/dL 11.7 - 16.0 g/dL [facility] Interpretation and review of laboratory results Abnormal [facility] Lymphocytes (Bld) [#/Vol] 0.7 10*3/uL Low 1.0 - 4.3 10*3/uL [facility] Lymphocytes/100 WBC (Bld) 5.6 % Low 20.0 - 40.0 % [facility] MCH (RBC) [Entitic mass] 30.7 pg 26. 0 - 34.0 pg [facility] MCHC (RBC) [Mass/Vol] 32.1 % 32.0 - 36.0 % [facility] MCV (RBC) [Entitic vol] 95.4 fL 80.0 - 98.0 fL [facility] Monocytes (Bld) [#/Vol] 0.6 10*3/uL 0.0 - 0.8 10*3/uL [facility] Monocytes/100 WBC (Bld) 5.3 % 2.0 - 10.0 % [facility] [email or web address] Neutrophils (Bld) [#/Vol] 10.6 10*3/uL High 1.8 - 7.0 10*3/uL [facility] [email or web address] Neutrophils/100 WBC (Bld) 87.1 % High 40.0 - 80.0 % [facility] [email or web address] Nucleated RBC/100 WBC (Bld) [Ratio] 0.0 % [facility] [email or web address] Platelet mean volume (Bld) [Entitic vol] 7.5 fL 7.4 - 12.4 fL [facility] [email or web address] Platelets (Bld) [#/Vol] 339 10*3/uL 140 - 440 10*3/uL [facility] [email or web address] RBC (Bld) [#/Vol] 4.09 10*6/uL 3.8 - 5.20 10*6/uL [facility] [email or web address] WBC (Bld) [#/Vol] 12.1 10*3/uL High 3.6 - 10.7 10*3/uL [facility] CT Cervical spine WO contras ton 05-21-2022 1. No fracture or subluxation of the cervical vertebrae. 2. 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 3. Diffuse osteopenia. 4. Emphysema. Report Dictated on Electronically Signed By: Jaspreet Jeong Electronically Signed Date/Time: 05/21/2022 4:41 AM [facility] [employer] Patient Name: GONZALO DELUCA : 1955 [id number] Exam Date/Time: 05/21/2022 04:31 Procedure: CT CERVICAL [...] with CT imaging. Moderate apical emphysema [facility] Jaspreet Jeong DO - 05/21/2022 [...] Jeong Electronically Signed Date/Time: 05/21/2022 4:41 AM [facility] Radiology Study observation (narrative) [facility] CT Head WO contraston 2022 No acute intracranial process. Minimal right periorbital soft tissue swelling. Report Dictated on Electronically Signed By: Jaspreet Jeong Electronically Signed Date/Time: 05/21/2022 4:38 AM [facility] Patient Name: GONZALO [...] preorbital air density is normal finding. [facility] Jaspreet Jeong DO - 05/21/2022 [...] Report Dictated on Electronically Signed By: Jaspreet Joeng Electronically Signed Date/Time: 05/21/2022 4:38 AM EST [facility] Radiology Study observation (narrative) [facility] - Chemistry and C hemistry - challengeon 05-21-2022 Magnesium [Mass/Vol] 2.6 mg/dL High 1.6 - 2 .3 mg/dL [facility] No Panel Informationon 05-21 Interpretation and review of laboratory results Abnormal [facility] Martha Flores MD 05/21/2022 5:56 AM [...] Procedure completion: Tolerated well, no immediate complications [facility] Martha Flores MD 05/21/2022 5:56 AM [facility] Performed by: Martha Flores MD Authorized by: Martha Flores MD Consent: Consent obtained: Verbal Consent given by: Patient Risks discussed: Infection, need for additional repair, poor cosmetic result and poor wound healing Wilber protocol: Patient identity confirmed: Verbally with patient [...] Procedure completion: Tolerated well, no immediate complications [facility] Martha Flores MD 05/21/2022 5:56 AM [facility] Performed by: Martha Flores MD Authorized by: Martha Flores MD Consent: Consent obtained: Verbal Consent given by: Patient Risks discussed: Infection, pain, poor cosmetic result, poor wound healing and need for additional repair Wilber protocol: Patient identity confirmed: Verbally with patient [...] Procedure completion: Tolerated well, no immediate complications [facility] XR Chest Single viewon 05-21 [...] Electronically Signed Date/Time: 05/21/2022 3:52 AM EST [facility] Patient Name: GONZALO DELUCA : 1955 Exam Date/Time: 05/21/2022 04:12 Procedure: XR CHEST 1 VIEW Ordering Provider: FLORES PRISCA Reason For Exam: fall PORTABLE CHEST CLINICAL INDICATION: Fall. COMPARISON: 03/16/2020. Correlation is made with CT chest dated 10/14/2021. TECHNIQUE: A single frontal view of thorax was obtained and reviewed. [facility] Jaspreet Jeong DO - 05/21/2022 [...] fragments. Diffuse osteopenia. Report Dictated on Workstation: [employer] Electronically Signed By: Jaspreet Jeong Electronically Signed Date/Time: 05/21/2022 3:52 AM EST [facility] Radiology Study observation (narrative) [facility]R Elbow - right 3 Viewson 0 05-21-2022 Elbow joint effusion . Occult elbow osseous fracture is likely, but not visualized. Osteopenia. Follow-up right elbow radiograph in 7-10 days is recommended. Report Dictated on Workstation: [employer] Electronically Signed By: Jaspreet Jeong Electronically Signed Date/Time: 05/21/2022 4:16 AM EST [facility] [employer] Patient Name: GONZALO DELUCA : 1955 [...] are demineralized. No bone lesion is identified. [facility] Jaspreet Jeong, DO - [...] Electronically Signed Date/Time: 05/21/2022 4:16 AM EST [facility] Radiology Study observation (narrative) [facility] XR Elbow - right 3 ViewsOrde red By: Jaspreet Jeong on 05-21-2022 [facility] [email or web address] Work Phone: XR Pelvis 1 or 2 Viewson No acute traumatic osseous abnormality. Osteopenia. Report Dictated on Workstation: [employer] Electronically Signed By: Jaspreet Jeong Electronically Signed Date/Time: 05/21/2022 4:17 AM EST [facility] [employer] Patient Name: GONZALO DELUCA : 1955 [...] lesion or soft tissue abnormality is identified. [facility] [employer] [facility] Jaspreet Jeong, DO - 05/21/2022 Patient [...] osseous abnormality. Osteopenia. Report Dictated on Workstation: [employer] Electronically Signed By: Jaspreet Jeong Electronically Signed Date/Time: 05/21/2022 4:17 AM EST [facility] Radiology Study observation (narrative) Abe German [facility] XR Shoulder - right 2 Viewso n 05-21-2022 1. Acute, transverse fracture through the right proximal surgical humeral neck. There is mild avulsion fracture of the right greater tuberosity. Diffuse osteopenia. Remote multiple mid thoracic compression fracture deformities, unchanged. Emphysema. Report Dictated on Workstation: [employer] Electronically Signed By: Jaspreet Jeong Electronically Signed Date/Time: 05/21/2022 3:56 AM EST [employer] Patient Name: GONZALO DELUCA : 1955 [...] hyperinflated with flattened diaphragms, consistent with COPD. [facility] [employer] Jaspreet Jeong, DO - 05/21/2022 Patient [...] Electronically Signed Date/Time: 05/21/2022 3:56 AM EST [facility] Radiology Study observation (narrative) [facility] Basic Metabolic Panelon 07-2 Anion gap [Moles/Vol] 4 mmol/L Normal 3-13 [facility] Comment on above: Performed By: #### B MP3 #### [facility] [address] [place] [address] Calcium [Mass/Vol] 8.8 mg/dL Normal 8.4-10.4 [facility] Comment on above: Performed By: #### B MP3 #### [facility] [address] [place] [address] CO2 [Moles/Vol] 31 mmol/L High 22-30 [facility] Comment on above: Performed By: #### B MP3 #### [facility] [address] [place] [address] Glucose [Mass/Vol] 91 mg/dL Normal 70-100 [facility] Comment on above: Performed By: #### B MP3 #### [facility] [address] [place] [address] Urea nitrogen [Mass/Vol] 15 mg/dL Normal 9-20 [facility] Comment on above: Performed By: #### B MP3 #### [facility] [address] [place] [address] Creatinine [Mass/Vol] 0.80 mg/dL Normal 0.52-1.25 [facility] Comment on above: Performed By: #### B MP3 #### [facility] [address] [place] [address] GFR/1.73 sq M.predicted among blacks MDRD (S/P/Bld) [Vol rate/Area] 89.7 mL/min/{1.73_m2} Normal >60 [facility] Comment on above: Performed By: #### B MP3 #### [facility] [address] [place] [address] GFR/1.73 sq M.predicted among non-blacks MDRD (S/P/Bld) [Vol rate/Area] 77.4 mL/min/{1.73_m2} Normal >60 [facility] Comment on above: Result Comment: [...] secretion. Performed By: #### B MP3 #### [facility] [address] [place] [address] Potassium [Moles/Vol] 4.1 mmol/L Normal 3.5-5.1 [facility] Comment on above: Performed By: #### B MP3 #### [facility] [address] [place] [address] Chloride [Moles/Vol] 106 mmol/L Normal 98-107 [facility] Comment on above: Performed By: #### B MP3 #### [facility] [address] [place] [address] Sodium [Moles/Vol] 141 mmol/L Normal 135-145 [facility] [employer] Comment on above: Performed By: #### B MP3 #### [facility] [address] [place] [address] Anion gap [Moles/Vol] 4 mmol/L 3 - 13 mmol/L [facility] Calcium [Mass/Vol] 8.8 mg/dL 8.4 - 10. 4 mg/dL [facility] Chloride [Moles/Vol] 106 mmol/L 98 - 10 7 mmol/L [facility] CO2 [Moles/Vol] 31 mmol/L High 22 - 30 mmol/L [facility] Creatinine [Mass/Vol] 0.8 mg/dL 0.52 - 1.25 mg/dL [facility] EGFR IF NonAfrican Citizen Of [place] 77.4 mL/min 60 - PINF mL/min [facility] Comment on above: KDIGO guidelines pro vide [...] - 20 mg/dL [facility] Test Performed by [facility], [address], [place], [place] [address] [facility] CT Chest w/ Contraston 10-14 CT Chest w/ Contrast Patient Name: GONZALO EDEN Computed Tomography ACCESSION EXAM DATE/TIME PROCEDURE ORDERING PROVIDER [id number] 10/14/2021 14:[address] Thorax w/ Contrast ZIYAD MENENDEZ CPT code 68840 Q9967 Reason For Exam (CT Thorax w/ [...] Time: 10/16/2021 12:06 Normal [facility] TOX SCREEN ROUT URon 022 Amphetamines Confirm (U) [Mass/Vol] Negative Negative [facility] Barbiturates Urine Negative Negative [facility] Benzodiazepines Urine Negative Negative [facility] Cannabinoids, Urine Negative Negative [facility] Cocaine Ql (U) Negative Negative [facility] Ethanol (U) [Mass/Vol] <11 <11 mg/dL Cl [facility] Opiates Screen Ql (U) Negative Negative [facility] oxyCODONE cutoff Screen (U) [Mass/Vol] Positive Abnormal Negative [facility] Phencyclidine Ql (U) Negative Negative [facility] CT Chest w/ Contraston 12-26 CT Chest w/ Contrast Patient Name: GONZAOL EDEN Computed Tomography ACCESSION EXAM DATE/TIME PROCEDURE ORDERING PROVIDER [id number] 12/26/2020 11:[address] Thorax w/ Contrast ZIYAD MENENDEZ CPT code 79259 Q9967 Reason For Exam (CT Thorax w/ [...] Time: 12/29/2020 2:04 Normal [facility] Creatinineon 12-26-2020 Creatinine [Mass/Vol] 0.73 mg/dL Normal 0.52-1.25 [facility] Comment on above: Performed By: #### C RTN3 #### [facility] [address] [place] [address] GFR/1.73 sq M.predicted among blacks MDRD (S/P/Bld) [Vol rate/Area] mL/min/{1.73_m2} Normal >60 [facility] Comment on above: Performed By: #### C RTN3 #### [facility] [address] [place] [address] GFR/1.73 sq M.predicted among non-blacks MDRD (S/P/Bld) [Vol rate/Area] 87.0 mL/min/{1.73_m2} Normal >60 [facility] Comment on above: Result Comment: [...] secretion. Performed By: #### C RTN3 #### [facility] [email or web address] [facility] [address] [place] [address] Creatinine, SerumOrdered By: Ziyad Menendez on 12-26-2020 Creatinine [Mass/Vol] 0.73 mg/dL 0.52 - 1.25 mg/dL [facility] Work Phone: EGFR IF NonAfrican Citizen Of [place] 87.0 mL/min >60 [facility] Work Phone: Comment on above: KDIGO [...] MDRD (S/P/Bld) [Vol rate/Area] mL/min/{1.73_m2} >60 mL/min [facility] Work Phone: Test Performed by [facility], [address] [place], [place] [address] [facility] Work Phone: [phone] [facility] Work Phone: [phone] XR ELBOW RIGHT (MIN 3 VIEWS) Ordered By: Lauren Lutz on 10-16-2020 Patient Name: GONZALO DELUCA Diagnostic Radiology ACCESSION EXAM DATE/TIME PROCEDURE ORDERING PROVIDER [id number] 10/16/2020 15:30 EDT CR Elbow 3+ Views Right NADEEM LUTZ DANIEL M CPT code 83264 Reason For Exam (CR Elbow 3+ Views [...] ANTHONY Transcribed Date and Time: 10/16/2020 3:57 [facility] Work Phone: Real, [facility] Incoming Radiology Results From Replaced By [facility] - 10/16/2020 3:57 PM EDT Patient Name: GONZALO DELUCA Diagnostic Radiology ACCESSION EXAM DATE/TIME PROCEDURE ORDERING PROVIDER [id number] 10/16/2020 15:30 EDT CR Elbow 3+ Views Right NADEEM LUTZ DANIEL M CPT code 72287 Reason For Exam (CR Elbow 3+ Views [...] Radiology ACCESSION EXAM DATE/TIME PROCEDURE ORDERING PROVIDER [id number] 10/16/2020 15:30 EDT CR Spine Lumbosacral 2 NELDA, NADEEM, LAUREN M or 3 Views CPT code 29753 Reason For Exam (CR Spine Lumbosacral 2 [...] Phone: Real, [facility] Incoming Radiology Results From Replaced By [facility] - 10/16/2020 5:12 PM EDT Patient Name: GONZALO DELUCA Diagnostic Radiology ACCESSION EXAM DATE/TIME PROCEDURE ORDERING PROVIDER [id number] 10/16/2020 15:30 EDT CR Spine Lumbosacral 2 NADEEM LUTZ DANIEL M or 3 Views CPT code 55893 Reason For Exam (CR Spine Lumbosacral 2 [...] Radiology ACCESSION EXAM DATE/TIME PROCEDURE ORDERING PROVIDER [id number] 10/16/2020 15:30 EDT CR Sacrum/Coccyx 2+ NADEEM LUTZ DANIEL M Views CPT code 73900 Reason For Exam (CR Sacrum/Coccyx 2+ Views) [...] R Transcribed Date and Time: 10/16/2020 5:14 [facility] Work Phone: Real, [facility] Results From Replaced By [facility] - 10/16/2020 5:14 PM EDT Patient Name: GONZALO DELUCA Diagnostic Radiology ACCESSION EXAM DATE/TIME PROCEDURE ORDERING PROVIDER [id number] 10/16/2020 15:30 EDT CR Sacrum/Coccyx 2+ NADEEM LUTZ, LAUREN M Views CPT code 80891 Reason For Exam (CR Sacrum/Coccyx 2+ Views) [...] R Transcribed Date and Time: 10/16/2020 5:14 [facility] Work Phone: [facility] Work Phone: CT CHEST W CONTRASTOrdered B y: Ziyad Menendez on 09-24-2020 Patient Name: GONZALO DELUCA Computed Tomography ACCESSION EXAM DATE/TIME PROCEDURE ORDERING PROVIDER [id number] 09/24/2020 12:[address] Thorax w/ Contrast MENENDEZVANESSA RILEYHEN CPT code 94046 Q9967 Reason For Exam (CT Thorax w/ [...] Phone: [facility], [facility] Incoming Radiology Results From Replaced By [facility] - 09/24/2020 6:29 PM EDT Patient Name: GONZALO DELUCA Computed Tomography ACCESSION EXAM DATE/TIME PROCEDURE ORDERING PROVIDER [id number] 09/24/2020 12:[address] Thorax w/ Contrast ZIYAD MENENDEZ CPT code 15920 Q9967 Reason For Exam (CT Thorax w/ [...] ALLIED HEALTHon 09-12-2020 [facility] HNO ID: [id number] Author: RT Alfred(R) Service: Radiology Author Type: Land Management Forester Type: Allied Health Filed: 09/12/2020 12:49 PM [...] Alfred(R) September 12, 2020 12:49 PM Normal [facility] Basic metabolic 2000 panelon 09-12-2020 Anion gap [Moles/Vol] 5 mmol/L Low 8-16 [facility] Comment on above: Order Comment: Speci men Type: BLOOD SPECIMEN Performed By: #### 2 4321-2 #### [facility] CLIA [id number] [address] [place] [address] [place] Calcium [Mass/Vol] 8.8 mg/dL Normal 8.5-10.1 [facility] Comment on above: Order Comment: Speci men Type: BLOOD SPECIMEN Performed By: #### 2 4321-2 #### [facility] CLIA [id number] [address] [place] [address] [place] Chloride [Moles/Vol] 102 mmol/L Normal 98-107 [facility] Comment on above: Order Comment: Speci men Type: BLOOD SPECIMEN Performed By: #### 2 4321-2 #### [facility] CLIA [id number] [address] [place] [address] [place] CO2 [Moles/Vol] 33 mmol/L High 21-32 [facility] Comment on above: Order Comment: Speci men Type: BLOOD SPECIMEN Performed By: #### 2 4321-2 #### [facility] CLIA [id number] [address] [place] [address] Creatinine [Mass/Vol] 0.86 mg/dL Normal 0.51-0.95 [facility] Comment on above: Order Comment: Speci men Type: BLOOD SPECIMEN Performed By: #### 2 4321-2 #### [facility] CLIA [id number] [address] [place] [address] [place] GFR/1.73 sq M.predicted among blacks MDRD (S/P/Bld) [Vol rate/Area] mL/min/{1.73_m2} [facility] Comment on above: Order Comment: Speci men Type: BLOOD SPECIMEN Performed By: #### 2 4321-2 #### [facility] CLIA [id number] [address] [place] [address] GFR/1.73 sq M.predicted among non-blacks MDRD (S/P/Bld) [Vol rate/Area] mL/min/{1.73_m2} [facility] Comment on above: Order Comment: [...] 4321-2 #### [facility] CLIA [id number] [address] [place] [address] [place] Glucose [Mass/Vol] 98 mg/dL Normal 70-99 [facility] Comment on above: Order Comment: Speci men Type: BLOOD SPECIMEN Result Comment: The Citizen Of [place] Diabetes Association (ADA) provides guidance for cutoff [...] Standards of Medical Care in Diabetes 2016, Citizen Of [place] Diabetes Association. Diabetes Care. 2016.39(Suppl 1). Performed By: #### 2 4321-2 #### [facility] CLIA [id number] [address] [place] [address] [place] Potassium [Moles/Vol] 3.7 mmol/L Normal 3.5-5.1 [facility] Comment on above: Order Comment: Speci men Type: BLOOD SPECIMEN Performed By: #### 2 4321-2 #### [facility] CLIA [id number] [address] [place] [address] [place] Sodium [Moles/Vol] 140 mmol/L Normal 136-145 [facility] Comment on above: Order Comment: Speci men Type: BLOOD SPECIMEN Performed By: #### 2 4321-2 #### [facility] CLIA [id number] [address] [place] [address] [place] Urea nitrogen [Mass/Vol] 17 mg/dL Normal 7-18 [facility] Comment on above: Order Comment: Speci men Type: BLOOD SPECIMEN Performed By: #### 2 4321-2 #### [facility] CLIA [id number] [address] [place] [address] [place] CBC W Auto Differential pane l (Bld)on 09-12-2020 Basophils (Bld) [#/Vol] 0.03 10*3/uL Normal <0.11 [facility] Comment on above: Order Comment: Speci men Type: BLOOD SPECIMEN Performed By: #### 5 7021-8 #### [facility] CLIA [id number] [address] [place] [address] Basophils/100 WBC (Bld) 0.5 % Normal [facility] Comment on above: Order Comment: Speci men Type: BLOOD SPECIMEN Performed By: #### 5 7021-8 #### [facility] CLIA [id number] [address] [place] [address] Differential cell count method Nom (Bld) Auto Normal [facility] Comment on above: Order Comment: Speci men Type: BLOOD SPECIMEN Performed By: #### 5 7021-8 #### [facility] CLIA [id number] [address] [place] [address] Eosinophils (Bld) [#/Vol] 0.49 10*3/uL High <0.46 [facility] Comment on above: Order Comment: Speci men Type: BLOOD SPECIMEN Performed By: #### 5 7021-8 #### [facility] CLIA [id number] [address] [place] [address] Eosinophils/100 WBC (Bld) 8.2 % Normal [facility] Comment on above: Order Comment: Speci men Type: BLOOD SPECIMEN Performed By: #### 5 7021-8 #### [facility] CLIA [id number] [address] [place] [address] Erythrocyte distribution width (RBC) [Ratio] 12.7 % Normal 11.5-15.0 [facility] Comment on above: Order Comment: Speci men Type: BLOOD SPECIMEN Performed By: #### 5 7021-8 #### [facility] CLIA [id number] [address] [place] [address] Hematocrit (Bld) [Volume fraction] 34.2 % Low 36.0-46.0 [facility] Comment on above: Order Comment: Speci men Type: BLOOD SPECIMEN Performed By: #### 5 7021-8 #### [facility] CLIA [id number] [address] [place] [address] Hemoglobin (Bld) [Mass/Vol] 10.8 g/dL Low 11.5-15.5 [facility] Comment on above: Order Comment: Speci men Type: BLOOD SPECIMEN Performed By: #### 5 7021-8 #### [facility] CLIA [id number] [address] [place] [address] Lymphocytes (Bld) [#/Vol] 0.59 10*3/uL Low 1.00-4.00 [facility] Comment on above: Order Comment: Speci men Type: BLOOD SPECIMEN Performed By: #### 5 7021-8 #### [facility] CLIA [id number] [address] [place] [address] Lymphocytes/100 WBC (Bld) 9.9 % Normal [facility] Comment on above: Order Comment: Speci men Type: BLOOD SPECIMEN Performed By: #### 5 7021-8 #### [facility] CLIA [id number] [address] [place] [address] MCH (RBC) [Entitic mass] 30.7 pg Normal 26.0-34.0 [facility] Comment on above: Order Comment: Speci men Type: BLOOD SPECIMEN Performed By: #### 5 7021-8 #### [facility] CLIA [id number] [address] [place] [address] STATES [facility] MCHC (RBC) [Mass/Vol] 31.6 g/dL Normal 30.5-36.0 [facility] Comment on above: Order Comment: Speci men Type: BLOOD SPECIMEN Performed By: #### 5 7021-8 #### [facility] CLIA [id number] [address] [place] [address] MCV (RBC) [Entitic vol] 97.2 fL Normal 80.0-100.0 [facility] Comment on above: Order Comment: Speci men Type: BLOOD SPECIMEN Performed By: #### 5 7021-8 #### [facility] CLIA [id number] [address] [place], [place] [address] [place] [facility] Monocytes (Bld) [#/Vol] 0.63 10*3/uL Normal <0.87 [facility] Comment on above: Order Comment: Speci men Type: BLOOD SPECIMEN Performed By: #### 5 7021-8 #### [facility] CLIA [id number] [address] [place] [address] Monocytes/100 WBC (Bld) 10.6 % Normal [facility] Comment on above: Order Comment: Speci men Type: BLOOD SPECIMEN Performed By: #### 5 7021-8 #### [facility] CLIA [id number] [address] [place] [address] Neutrophils (Bld) [#/Vol] 4.20 10*3/uL Normal 1.45-7.50 [facility] Comment on above: Order Comment: Speci men Type: BLOOD SPECIMEN Performed By: #### 5 7021-8 #### [facility] CLIA [id number] [address] [place], [place] [address] [facility] Neutrophils/100 WBC (Bld) 70.8 % Normal [facility] Comment on above: Order Comment: Speci men Type: BLOOD SPECIMEN Performed By: #### 5 7021-8 #### [facility] CLIA [id number] [address] [place], [place] [address] [facility] Platelet mean volume (Bld) [Entitic vol] 9.1 fL Normal 9.0-12.7 [facility] Comment on above: Order Comment: Speci men Type: BLOOD SPECIMEN Performed By: #### 5 7021-8 #### [facility] CLIA [id number] [address] [place] [address] [place] Platelets (Bld) [#/Vol] 215 10*3/uL Normal 150-400 [facility] Comment on above: Order Comment: Speci men Type: BLOOD SPECIMEN Performed By: #### 5 7021-8 #### [facility] CLIA [id number] [address] [place] [address] STATES OF [facility] RBC (Bld) [#/Vol] 3.52 10*6/uL Low 3.90-5.20 [facility] Comment on above: Order Comment: Speci men Type: BLOOD SPECIMEN Performed By: #### 5 7021-8 #### [facility] CLIA [id number] [address] [place] [address] WBC (Bld) [#/Vol] 5.94 10*3/uL Normal 3.70-11.00 [facility] Comment on above: Order Comment: Speci men Type: BLOOD SPECIMEN Performed By: #### 5 7021-8 #### [facility] CLIA [id number] [address] [place] [address] OF [facility] CT BRAIN WO IVCONon 09-13-[address] BRAIN WO IVCON * * *Final Report* * * DATE OF EXAM: Sep 12 2020 1:00PM [facility] 0504 - CT BRAIN WO IVCON [...] clear. The visualized paranasal sinuses are clear. Finished Hardware Erector (topogram) images: No additional findings. IMPRESSION: 1. No CT evidence of acute intracranial abnormalities. 2. Small area of presumed encephalomalacia within right occipital lobe posteriorly. Clinical correlation is recommended. 3. Presumed postsurgical changes of right orbits are partially imaged. Civil Clerk: PSCB Transcribe Date/Time: Sep 12 2020 1:04P Dictated by : ELIOT STERLING MD This examination was interpreted and the report reviewed and electronically signed by: ELIOT STERLING MD on Sep 12 2020 1:12PM EST [id number] Normal [facility] CT CERVICAL SPINE WO IVCONon 09-12-2020 CT CERVICAL SPINE WO IVCON * * *Final Report* * * DATE OF EXAM: Sep 12 2020 1:00PM [facility] 0505 - CT CERVICAL SPINE WO [...] Counting reference: Craniocervical junction. Anatomic Variants: None. Finished Hardware Erector (topogram) images: No additional findings. Alignment: Grade [...] vertebrae with counting from the craniocervical junction. Civil Clerk: [facility]ITAL[facility] Transcribe Date/Time: Sep 12 2020 1:12P Dictated by : ELIOT STERLING MD This examination was interpreted and the report reviewed and electronically signed by: ELIOT STERLING MD on Sep 12 2020 1:28PM EST [id number] Normal [facility] ED NOTEon 09-12-2020 ED NOTE HNO ID: [id number] Author: Ursula De León RN Service: Emergency Medicine Author Type: Registered Nurse Type: ED Notes Filed: 09/12/2020 1:53 PM Note Text: Normal [facility] ED NOTE HNO ID: [id number] Author: Griselda Gaviria RN Service: Emergency Medicine Author Type: Registered Nurse Type: ED Notes Filed: 09/12/2020 11:45 AM Note Text: Pt c/o frequent falls, injury to right shoulder. Pt also c/o possible UTI-having urinary frequency. Normal [facility] ED PROV NOTEon 09-12-2020 ED PROV NOTE HNO ID: [id number] Author: Sneha Jett DO Service: Emergency Medicine [...] Date - COPD (chronic obstructive pulmonary disease) ([facility]) - DDD (degenerative disc disease), lumbar - Encounter for chronic pain management - Major depression, recurrent, chronic ([facility]) - Osteoporosis - Pulmonary nodule, right 2015 [...] (135 lb) (more content not included)... Normal [facility] Urinalysis complete panel (U )on 09-12-2020 Bacteria LM.HPF (Urine sed) [#/Area] Moderate Abnormal None Seen [facility] Comment on above: Order Comment: Speci men Type: URINE SPECIMEN Performed By: #### 2 4356-8 #### [facility] CLIA [id number] [facility] [place] [address] [place] Bilirubin Ql (U) Negative Normal Negative [facility] Comment on above: Order Comment: Speci men Type: URINE SPECIMEN Performed By: #### 2 4356-8 #### [facility] CLIA [id number] [facility] [place] [address] [place] Clarity (Unsp spec) Cloudy Abnormal Clear [facility] Comment on above: Order Comment: Speci men Type: URINE SPECIMEN Performed By: #### 2 4356-8 #### [facility] CLIA [id number] [facility] [place] [address] [place] Color (U) Yellow Normal Yellow [facility] Comment on above: Order Comment: Speci men Type: URINE SPECIMEN Performed By: #### 2 4356-8 #### [facility] CLIA [id number] [address] [address] [facility] Epithelial cells LM.HPF (Urine sed) [#/Area] Few Normal [facility] Comment on above: Order Comment: Speci men Type: URINE SPECIMEN Performed By: #### 2 4356-8 #### [facility] CLIA [id number] [address] [address] [facility] Glucose Test strip (U) [Mass/Vol] Negative Normal Negative [facility] Comment on above: Order Comment: Speci men Type: URINE SPECIMEN Performed By: #### 2 4356-8 #### [facility] CLIA [id number] [address] [place], [place] [address] [place] [facility] Hemoglobin Ql (U) Trace Abnormal Negative [facility] Comment on above: Order Comment: Speci men Type: URINE SPECIMEN Performed By: #### 2 4356-8 #### [facility] CLIA [id number] [address] [address] [facility] Ketones Ql (U) Negative Normal Negative [facility] Comment on above: Order Comment: Speci men Type: URINE SPECIMEN Performed By: #### 2 4356-8 #### [facility] CLIA [id number] [address] [place], [place] [address] [facility] Leukocyte esterase Test strip Ql (U) 3+ Abnormal Negative [facility] Comment on above: Order Comment: Speci men Type: URINE SPECIMEN Performed By: #### 2 4356-8 #### [facility] CLIA [id number] [address] [address] [facility] Nitrite Ql (U) Negative Normal Negative [facility] Comment on above: Order Comment: Speci men Type: URINE SPECIMEN Performed By: #### 2 4356-8 #### [facility] CLIA [id number] [address] [address] [place] pH (U) 6.0 [pH] Normal 5.0-8.0 [facility] Comment on above: Order Comment: Speci men Type: URINE SPECIMEN Performed By: #### 2 4356-8 #### [facility] CLIA [id number] [address] [place] [address] Protein (U) [Mass/Vol] Negative Normal Negative [facility] Comment on above: Order Comment: Speci men Type: URINE SPECIMEN Performed By: #### 2 4356-8 #### [facility] CLIA [id number] [address] [place] [address] RBC LM.HPF (Urine sed) [#/Area] 0-3 /HPF Normal 0-3 /HPF [facility] Comment on above: Order Comment: Speci men Type: URINE SPECIMEN Performed By: #### 2 4356-8 #### [facility] CLIA [id number] [address] [place] [address] Specific gravity (U) [Rel density] 1.015 Normal 1.005-1.030 [facility] Comment on above: Order Comment: Speci men Type: URINE SPECIMEN Performed By: #### 2 4356-8 #### [facility] CLIA [id number] [address] [place] [address] Urobilinogen Ql (U) 0.2 EU/dL Normal 0.2-1.0 EU/dL [facility] Comment on above: Order Comment: Speci men Type: URINE SPECIMEN Performed By: #### 2 4356-8 #### [facility] CLIA [id number] [address] [place] [address] WBC LM.HPF (Urine sed) [#/Area] 11-25 /HPF Abnormal 0-5 /HPF [facility] Comment on above: Order Comment: Speci men Type: URINE SPECIMEN Performed By: #### 2 4356-8 #### [facility] CLIA [id number] [address] [place] [address] XR SHLDR >/=3V AP/HECTOR AP/OTH R RTon [...] are seen. IMPRESSION: No acute osseous abnormality. Civil Clerk: PSCB Transcribe Date/Time: Sep 12 2020 12:55P Dictated by : SHANON CARTER MD This examination was interpreted and the report reviewed and electronically signed by: SHANON CARTER MD on Sep 12 2020 12:56PM EST [id number] Normal [facility] POCT Creatinineon 06-06-2020 Creatinine [Mass/Vol] 0.8 mg/dL 0.6 - 1.4 mg/dL [facility] Work Phone: Comment on above: Performed by [employer] CLIA ID:[id number] [place] GFR/1.73 sq M predicted among blacks MDRD (S/P/Bld) [Vol rate/Area] mL/min/{1.73_m2} >60 mL/min [employer] Work Phone: GFR/1.73 sq M predicted among non-blacks MDRD (S/P/Bld) [Vol rate/Area] 78.2 mL/min/{1.73_m2} >60 [facility] Work Phone: Comment on above: KDIGO guidelines [...] renal tubular creatinine secretion. Test Per[facility] by [facility], [address] Work Phone: Brain Natriuretic Peptideon 03-16-2020 Natriuretic peptide B (Bld) [Mass/Vol] 100 pg/mL 0 - 125 pg/mL [place], [place] Test Performed by [facility], [address] COVID-19, Rapidon 03-16-2020 Sodium [Moles/Vol] see below [place], [place] Comment on above: Not Detected Expected Result: Not Detected _ Isothermal nucleic acid amplification performed on the [employer] Now System by the [facility] Negative results do not preclude SARS-CoV-2 infection and should not be used as the sole basis for treatment or other patient management decisions. This assay was developed by [employer] and distributed under an Emergency Use Authorization (EUA) granted by the [facility] for the qualitative detection of SARS-CoV-2 nucleic acid. Provider and patient fact sheets can be found at https://www.fda.gov/media/186907/download and https://www.fda.gov/media/728494/download. Test Performed by [facility], [address] Comprehensive Metabolic Pane cory 03-16-2020 Albumin [Mass/Vol] 3.2 g/dL Low 3.5 - 5 g/dL [place] ALP [Catalytic activity/Vol] 98 U/L 38 - 126 U/L [place] ALT [Catalytic activity/Vol] 18 U/L 0 - 34 U/L [place] Comment on above: The ALT test is perf ormed by an updated assay method. Please note that the reference intervals have been changed and are now sex specific. Anion gap [Moles/Vol] 6 mmol/L [place], [place] AST [Catalytic activity/Vol] 27 U/L 15 - 46 U/L [place] Bilirubin Ql (U) 0.1 mg/dL Low 0.2 - 1.3 mg/dL [place] Calcium [Mass/Vol] 8.7 mg/dL 8.4 - 10. 4 mg/dL [place] Chloride [Moles/Vol] 104 mmol/L 98 - 10 7 mmol/L [place] CO2 [Moles/Vol] 29 mmol/L 22 - 30 mmol/L [place] Creatinine [Mass/Vol] 0.85 mg/dL 0.52 - 1.25 mg/dL [place] EGFR IF NonAfrican Citizen Of [place] 72.8 mL/min >60 [place] Comment on above: KDIGO guidelines pro [...] MDRD (S/P/Bld) [Vol rate/Area] 84.3 mL/min/{1.73_m2} >60 [place] Glucose [Mass/Vol] 96 mg/dL 70 - 100 mg/dL [place] Interpretation and review of laboratory results Abnormal [place] Potassium [Moles/Vol] 4.1 mmol/L 3.5 - 5.1 mmol/L [place] Protein [Mass/Vol] 6.0 g/dL Low 6.3 - 8.2 g/dL [place] Sodium [Moles/Vol] 138 mmol/L 135 - 145 mmol/L [place] Urea nitrogen [Mass/Vol] 14 mg/dL 7 - 20 mg/d L [place] Test Performed by [facility], [address] [place], [place], [place] [address] [place] [address] Hemogram (CBC) w/Auto Diffon 03-16-2020 Absolute Baso # 0.0 10*3/uL 0 - 0.2 10*3/uL [place] Absolute Neut # 5.0 10*3/uL 1.8 - 7 10*3/uL [place] Basophils/100 WBC (Bld) 0.5 % 0 - 2 % [place] Eosinophils (Bld) [#/Vol] 0.1 10*3/uL 0 - 0.5 10*3/uL [place] Eosinophils/100 WBC (Bld) 1.7 % 1 - 6 % [place] Erythrocyte distribution width (RBC) [Ratio] 21.1 % High 11.5 - 14.5 % [place] Granulocytes/100 WBC (Bld) 76.2 % 40 - 80 % [place] Hematocrit (Bld) [Volume fraction] 27.3 % Low 35 - 47 % [place] Hemoglobin (Bld) [Mass/Vol] 8.9 g/dL Low 11.7 - 16 g/dL [place] Interpretation and review of laboratory results Abnormal [place] Lymphocytes (Bld) [#/Vol] 0.6 10*3/uL Low 1 - 4.3 10*3/uL [place] Lymphocytes/100 WBC (Bld) 9.5 % Low 20 - 40 % [place] MCH (RBC) [Entitic mass] 30.6 pg 26 - 34 pg [place] MCHC (RBC) [Mass/Vol] 32.7 % 32 - 36 % [place] MCV (RBC) [Entitic vol] 93.4 fL 79 - 98 fL [place], [place] Monocytes (Bld) [#/Vol] 0.8 10*3/uL 0 - 0.8 10*3/uL [place] Monocytes/100 WBC (Bld) 12.1 % High 2 - 10 % [place] Platelet mean volume (Bld) [Entitic vol] 6.9 fL Low 7.4 - 10.4 fL [place] Platelets (Bld) [#/Vol] 235 10*3/uL 140 - 440 10*3/uL [place] RBC (Bld) [#/Vol] 2.93 10*6/uL Low 3.8 - 5.2 10*6/uL [place] WBC (Bld) [#/Vol] 6.6 10*3/uL 3.6 - 10.7 10*3/uL [place] Test Performed by [facility], [address] [place], [place], [place] [address] [place] [address] Metabolic Panelon 03-16-2020 Sodium [Moles/Vol] Slight [place] RBC MORPHOLOGYon 03-16-2020 Anisocytosis Ql (Bld) Moderate [place] RBC morphology finding Nom (Bld) ABNORMAL [place] Test Performed by [facility], [address] [place], [place] [address] [place] Troponin x1on 03-16-2020 Troponin I.cardiac [Mass/Vol] ng/mL 0 - 0.034 ng/mL [place] Comment on above: . Test Performed by [facility], [address] [place], [place] [address] [place] XR CHEST PORTABLEon 03-16-20 20 Patient Name: GONZALO DELUCA Diagnostic Radiology ACCESSION EXAM DATE/TIME PROCEDURE ORDERING PROVIDER [id number] 03/16/2020 14:04 EST CR Chest Portable RODRÍGUEZ SOLIZ AMY L CPT code 80409 Reason For Exam (CR Chest Portable) Cough [...] JOHN Transcribed Date and Time: 03/16/2020 2:16 [facility], [place] Real, [facility] Incoming Radiology Results From Replaced By [facility] - 03/16/2020 2:16 PM EST Patient Name: GONZALO DELUCA [facility]#: [id number] Diagnostic Radiology ACCESSION EXAM DATE/TIME PROCEDURE ORDERING PROVIDER [id number] 03/16/2020 14:04 EST CR Chest Portable RODRÍGUEZ SOLIZ AMY L CPT code 02473 Reason For Exam (CR Chest Portable) Cough [...] JOHN Transcribed Date and Time: 03/16/2020 2:16 [place] CBC Auto Differentialon 12-0 Absolute Baso # 0.0 10*3/uL 0 - 0.2 10*3/uL [place] Absolute Neut # 2.5 10*3/uL 1.8 - 7 10*3/uL [place] Basophils/100 WBC (Bld) 0.5 % 0 - 2 % [place] Eosinophils (Bld) [#/Vol] 0.2 10*3/uL 0 - 0.5 10*3/uL [place] Eosinophils/100 WBC (Bld) 6.1 % High 1 - 6 % [place] Erythrocyte distribution width (RBC) [Ratio] 16.2 % High 11.5 - 14.5 % [place] Granulocytes/100 WBC (Bld) 70.6 % 40 - 80 % [place] Hematocrit (Bld) [Volume fraction] 29.6 % Low 35 - 47 % [place] Hemoglobin (Bld) [Mass/Vol] 9.8 g/dL Low 11.7 - 16 g/dL [place] Interpretation and review of laboratory results Abnormal [place] Lymphocytes (Bld) [#/Vol] 0.5 10*3/uL Low 1 - 4.3 10*3/uL [place] Lymphocytes/100 WBC (Bld) 13.0 % Low 20 - 40 % [place] MCH (RBC) [Entitic mass] 29.6 pg 26 - 34 pg [place] MCHC (RBC) [Mass/Vol] 33.0 % 32 - 36 % [place] MCV (RBC) [Entitic vol] 89.6 fL 79 - 98 fL [place] Monocytes (Bld) [#/Vol] 0.3 10*3/uL 0 - 0.8 10*3/uL [place] Monocytes/100 WBC (Bld) 9.8 % 2 - 10 % [place] Platelet mean volume (Bld) [Entitic vol] 7.5 fL 7.4 - 10.4 fL [place] Platelets (Bld) [#/Vol] 155 10*3/uL 140 - 440 10*3/uL [place] RBC (Bld) [#/Vol] 3.30 10*6/uL Low 3.8 - 5.2 10*6/uL [place] WBC (Bld) [#/Vol] 3.5 10*3/uL Low 3.6 - 10.7 10*3/uL [place] Test Performed by [facility], [address] [place] [address] [place], [place] Comp Metabolic Panelon 02-20 ALP [Catalytic activity/Vol] 89 U/L Normal 38-126 [facility] Comment on above: Performed By: #### C MP3, MG3, HEMDF ####[facility] [email or web address] [id number] [place] [address] ALT [Catalytic activity/Vol] 18 U/L Normal 0-34 [facility] Comment on above: Result Comment: The ALT test is performed by an updated assay method. Please note that the reference intervals have been changed and are now sex specific. Performed By: #### C MP3, MG3, HEMDF ####[facility] [email or web address] [id number] [place] [address] Calcium [Mass/Vol] 8.8 mg/dL Normal 8.4-10.4 [facility] Comment on above: Performed By: #### C MP3, MG3, HEMDF ####[facility] [place] [address] Glucose [Mass/Vol] 79 mg/dL Normal 70-100 [facility] Comment on above: Performed By: #### C MP3, MG3, HEMDF ####[facility] [place] [address] Protein [Mass/Vol] 6.0 g/dL Low 6.3-8.2 [facility] Comment on above: Performed By: #### C MP3, MG3, HEMDF ####[place] [place] [address] Urea nitrogen [Mass/Vol] 11 mg/dL Normal 7-20 [facility] Comment on above: Performed By: #### C MP3, MG3, HEMDF ####[address] [place] [address] Anion gap [Moles/Vol] 5 Normal [facility] Comment on above: Performed By: #### C MP3, MG3, HEMDF ####[address] [place] [address] AST [Catalytic activity/Vol] 35 U/L Normal 15-46 [facility] Comment on above: Performed By: #### C MP3, MG3, HEMDF ####[address] [place] [address] Bilirubin [Mass/Vol] 0.3 mg/dL Normal 0.2-1.3 [facility] Comment on above: Performed By: #### C MP3, MG3, HEMDF ####[facility] [place] [address] CO2 [Moles/Vol] 31 mmol/L High 22-30 [facility] Comment on above: Performed By: #### C MP3, MG3, HEMDF ####[facility] [place] [address] Creatinine [Mass/Vol] 0.64 mg/dL Normal 0.52-1.25 [facility] Comment on above: Performed By: #### C MP3, MG3, HEMDF ####[address] [place] [address] GFR/1.73 sq M predicted among blacks MDRD (S/P/Bld) [Vol rate/Area] mL/min/{1.73_m2} Normal >60 [facility] Comment on above: Performed By: #### C MP3, MG3, HEMDF ####[address] [place] [address] GFR/1.73 sq M predicted among non-blacks MDRD (S/P/Bld) [Vol rate/Area] mL/min/{1.73_m2} Normal >60 [facility] Comment on above: Result Comment: KDIG O [...] Performed By: #### C MP3, MG3, HEMDF ####[address] [place], [place] Chloride [Moles/Vol] 101 mmol/L Normal 98-107 [facility] Comment on above: Performed By: #### C MP3, MG3, HEMDF ####[address] [place], [place] Potassium [Moles/Vol] 4.2 mmol/L Normal 3.5-5.1 [facility] Comment on above: Performed By: #### C MP3, MG3, HEMDF ####[address] [place] Sodium [Moles/Vol] 137 mmol/L Normal 135-145 [facility] Comment on above: Performed By: #### C MP3, MG3, HEMDF ####[facility] [place] Albumin [Mass/Vol] 2.2 g/dL Low 3.5-5.0 [facility] Comment on above: Performed By: #### C MP3, MG3, HEMDF ####[facility] [place], [place] Comprehensive Metabolic Pane cory 02-21-2020 Albumin [Mass/Vol] 2.2 g/dL Low 3.5 - 5 g/dL [place] ALP [Catalytic activity/Vol] 89 U/L 38 - 126 U/L [place] ALT [Catalytic activity/Vol] 18 U/L 0 - 34 U/L [place] Comment on above: The ALT test is perf ormed by an updated assay method. Please note that the reference intervals have been changed and are now sex specific. Anion gap [Moles/Vol] 5 mmol/L [place] AST [Catalytic activity/Vol] 35 U/L 15 - 46 U/L [place] Bilirubin Ql (U) 0.3 mg/dL 0.2 - 1.3 mg/dL [place] Calcium [Mass/Vol] 8.8 mg/dL 8.4 - 10. 4 mg/dL [place] Chloride [Moles/Vol] 101 mmol/L 98 - 10 7 mmol/L [place] CO2 [Moles/Vol] 31 mmol/L High 22 - 30 mmol/L [place] Creatinine [Mass/Vol] 0.64 mg/dL 0.52 - 1.25 mg/dL [place] EGFR IF NonAfrican Citizen Of [place] >90.0 >60 mL/min [place] Comment on above: KDIGO guidelines pro [...] MDRD (S/P/Bld) [Vol rate/Area] mL/min/{1.73_m2} >60 mL/min [place] Glucose [Mass/Vol] 79 mg/dL 70 - 100 mg/dL [place] Interpretation and review of laboratory results Abnormal [place] Potassium [Moles/Vol] 4.2 mmol/L 3.5 - 5.1 mmol/L [place] Protein [Mass/Vol] 6.0 g/dL Low 6.3 - 8.2 g/dL [place] Sodium [Moles/Vol] 137 mmol/L 135 - 145 mmol/L [place] Urea nitrogen [Mass/Vol] 11 mg/dL 7 - 20 mg/d L [place] Hemogram w/ Autodiffon 02-20 Abs Baso Cnt 0.0 10*3/uL Normal 0.0-0.2 [facility] Comment on above: Performed By: #### C MP3, MG3, HEMDF #### [facility] [address] [place] [address] Abs Neutrophile Cnt 2.5 10*3/uL Normal 1.8-7.0 [facility] Comment on above: Performed By: #### C MP3, MG3, HEMDF #### [facility] [address] [place] [address] Basophils/100 WBC (Bld) 0.5 % Normal 0.0-2.0 [facility] Comment on above: Performed By: #### C MP3, MG3, HEMDF #### [place] [address] [place], [place] Eosinophils (Bld) [#/Vol] 0.2 10*3/uL Normal 0.0-0.5 [facility] Comment on above: Performed By: #### C MP3, MG3, HEMDF #### [place] [address] [address] [place], [place] Eosinophils/100 WBC (Bld) 6.1 % High 1.0-6.0 [facility] Comment on above: Performed By: #### C MP3, MG3, HEMDF #### [place] [address] [place], [place] Erythrocyte distribution width (RBC) [Ratio] 16.2 % High 11.5-14.5 [facility] Comment on above: Performed By: #### C MP3, MG3, HEMDF #### [place] [address] [address] [place], [place] Granulocytes/100 WBC (Bld) 70.6 % Normal 40.0-80.0 [facility] Comment on above: Performed By: #### C MP3, MG3, HEMDF #### [place] [address] [place], [place] Hematocrit (Bld) [Volume fraction] 29.6 % Low 35.0-47.0 [facility] Comment on above: Performed By: #### C MP3, MG3, HEMDF #### [place] [address] [address] [place], [place] Hemoglobin (Bld) [Mass/Vol] 9.8 g/dL Low 11.7-16.0 [facility] Comment on above: Performed By: #### C MP3, MG3, HEMDF #### [place] [id number] [address] [place], [place] Lymphocytes (Bld) [#/Vol] 0.5 10*3/uL Low 1.0-4.3 [facility] Comment on above: Performed By: #### C MP3, MG3, HEMDF #### [place] [id number] [address] [place], [place] Lymphocytes/100 WBC (Bld) 13.0 % Low 20.0-40.0 [facility] Comment on above: Performed By: #### C MP3, MG3, HEMDF #### [place] [id number] [address] [place], [place] MCH (RBC) [Entitic mass] 29.6 pg Normal 26.0-34.0 [facility] Comment on above: Performed By: #### C MP3, MG3, HEMDF #### [place] [id number] [address] [place], [place] [facility]C (RBC) [Mass/Vol] 33.0 % Normal 32.0-36.0 [facility] Comment on above: Performed By: #### C MP3, MG3, HEMDF #### [address] [place] [address] [place], [place] MCV (RBC) [Entitic vol] 89.6 fL Normal 79.0-98.0 S [facility] Comment on above: Performed By: #### C MP3, MG3, HEMDF #### [address] [place] [address] [place], [place] Monocytes (Bld) [#/Vol] 0.3 10*3/uL Normal 0.0-0.8 [facility] Comment on above: Performed By: #### C MP3, MG3, HEMDF #### [place] [address] [place], [place] Monocytes/100 WBC (Bld) 9.8 % Normal 2.0-10.0 S [facility] Comment on above: Performed By: #### C MP3, MG3, HEMDF #### [address] Platelet mean volume (Bld) [Entitic vol] 7.5 fL Normal 7.4-10.4 [facility] Comment on above: Performed By: #### C MP3, MG3, HEMDF #### [place] [address] [place] Platelets (Bld) [#/Vol] 155 10*3/uL Normal 140-440 [facility] Comment on above: Performed By: #### C MP3, MG3, HEMDF #### [place] [address] [place] RBC (Bld) [#/Vol] 3.30 10*6/uL Low 3.80-5.20 [facility] Comment on above: Performed By: #### C MP3, MG3, HEMDF #### [address] [place] [address] [place] WBC (Bld) [#/Vol] 3.5 10*3/uL Low 3.6-10.7 [facility] Comment on above: Performed By: #### C MP3, MG3, HEMDF #### [place] [address] [place] Magnesiumon 02-21-2020 Magnesium [Mass/Vol] 1.6 mg/dL Normal 1.6-2.3 [facility] Comment on above: Performed By: #### C MP3, MG3, HEMDF #### [place] [address] [place] Magnesium [Mass/Vol] 1.6 mg/dL 1.6 - 2 .3 mg/dL [place], [place] Otheron 02-21-2020 Test Performed by [address] [address] [place], [place] CBC Auto Differentialon 01-19 Absolute Baso # 0.0 10*3/uL 0 - 0.2 10*3/uL [place] Absolute Neut # 5.3 10*3/uL 1.8 - 7 10*3/uL [place] Basophils/100 WBC (Bld) 0.4 % 0 - 2 % [place] Eosinophils (Bld) [#/Vol] 0.1 10*3/uL 0 - 0.5 10*3/uL [place] Eosinophils/100 WBC (Bld) 1.0 % 1 - 6 % [place] Erythrocyte distribution width (RBC) [Ratio] 15.0 % High 11.5 - 14.5 % [place] Granulocytes/100 WBC (Bld) 84.0 % High 40 - 80 % [place] Hematocrit (Bld) [Volume fraction] 34.1 % Low 35 - 47 % [place] Hemoglobin (Bld) [Mass/Vol] 11.3 g/dL Low 11.7 - 16 g/dL [place] Lymphocytes (Bld) [#/Vol] 0.4 10*3/uL Low 1 - 4.3 10*3/uL [place] Lymphocytes/100 WBC (Bld) 5.7 % Low 20 - 40 % [place] MCH (RBC) [Entitic mass] 29.7 pg 26 - 34 pg [place] MCHC (RBC) [Mass/Vol] 33.0 % 32 - 36 % [place] MCV (RBC) [Entitic vol] 89.8 fL 79 - 98 fL [place] Monocytes (Bld) [#/Vol] 0.6 10*3/uL 0 - 0.8 10*3/uL [place] Monocytes/100 WBC (Bld) 8.9 % 2 - 10 % [place] Platelet mean volume (Bld) [Entitic vol] 6.7 fL Low 7.4 - 10.4 fL [place] Platelets (Bld) [#/Vol] 315 10*3/uL 140 - 440 10*3/uL [place] RBC (Bld) [#/Vol] 3.79 10*6/uL Low 3.8 - 5.2 10*6/uL [place] WBC (Bld) [#/Vol] 6.3 10*3/uL 3.6 - 10.7 10*3/uL [place] Comprehensive Metabolic Pane cory 02-07-2020 Albumin [Mass/Vol] 3.5 g/dL 3.5 - 5 g/dL [place] ALP [Catalytic activity/Vol] 91 U/L 38 - 126 U/L [place] ALT [Catalytic activity/Vol] 21 U/L 0 - 34 U/L [place] Comment on above: The ALT test is perf ormed by an updated assay method. Please note that the reference intervals have been changed and are now sex specific. Anion gap [Moles/Vol] 4 mmol/L [place] AST [Catalytic activity/Vol] 24 U/L 15 - 46 U/L [place] Bilirubin Ql (U) 0.5 mg/dL 0.2 - 1.3 mg/dL [place] Calcium [Mass/Vol] 9.1 mg/dL 8.4 - 10. 4 mg/dL [place] Chloride [Moles/Vol] 101 mmol/L 98 - 10 7 mmol/L [place] CO2 [Moles/Vol] 33 mmol/L High 22 - 30 mmol/L [place] Creatinine [Mass/Vol] 0.66 mg/dL 0.52 - 1.25 mg/dL [place] EGFR IF NonAfrican Citizen [place] >90.0 >60 mL/min [place] Comment on above: KDIGO guidelines pro [...] MDRD (S/P/Bld) [Vol rate/Area] mL/min/{1.73_m2} >60 mL/min [place] Glucose [Mass/Vol] 97 mg/dL 70 - 100 mg/dL [place] Potassium [Moles/Vol] 3.9 mmol/L 3.5 - 5.1 mmol/L [place] Protein [Mass/Vol] 6.1 g/dL Low 6.3 - 8.2 g/dL [place] Sodium [Moles/Vol] 139 mmol/L 135 - 145 mmol/L [place] Urea nitrogen [Mass/Vol] 19 mg/dL 7 - 20 mg/d L [place] Magnesiumon 02-07-2020 Magnesium [Mass/Vol] 1.5 mg/dL Low 1.6 - 2 .3 mg/dL [place], [place] Otheron 02-07-2020 Interpretation and review of laboratory results Abnormal [place] Test Performed by [facility], [address] [place] [id number] [place], [place] CBC Auto Differentialon 01-19 Absolute Baso # 0.0 10*3/uL 0 - 0.2 10*3/uL [place] Absolute Neut # 7.6 10*3/uL High 1.8 - 7 10*3/uL [place] Basophils/100 WBC (Bld) 0.1 % 0 - 2 % [place] Eosinophils (Bld) [#/Vol] 0.0 10*3/uL 0 - 0.5 10*3/uL [place] Eosinophils/100 WBC (Bld) 0.0 % Low 1 - 6 % [place] Erythrocyte distribution width (RBC) [Ratio] 14.3 % 11.5 - 14.5 % [place] Granulocytes/100 WBC (Bld) 94.4 % High 40 - 80 % [place] Hematocrit (Bld) [Volume fraction] 35.2 % 35 - 47 % [place] Hemoglobin (Bld) [Mass/Vol] 11.3 g/dL Low 11.7 - 16 g/dL [place] Interpretation and review of laboratory results Abnormal [place] Lymphocytes (Bld) [#/Vol] 0.2 10*3/uL Low 1 - 4.3 10*3/uL [place] Lymphocytes/100 WBC (Bld) 2.8 % Low 20 - 40 % [place] MCH (RBC) [Entitic mass] 29.2 pg 26 - 34 pg [place] MCHC (RBC) [Mass/Vol] 32.2 % 32 - 36 % [place] MCV (RBC) [Entitic vol] 90.7 fL 79 - 98 fL [place] Monocytes (Bld) [#/Vol] 0.2 10*3/uL 0 - 0.8 10*3/uL [place], [place] Monocytes/100 WBC (Bld) 2.7 % 2 - 10 % [place] Platelet mean volume (Bld) [Entitic vol] 8.1 fL 7.4 - 10.4 fL [place] Platelets (Bld) [#/Vol] 252 10*3/uL 140 - 440 10*3/uL [place] RBC (Bld) [#/Vol] 3.88 10*6/uL 3.8 - 5.2 10*6/uL [place] WBC (Bld) [#/Vol] 8.1 10*3/uL 3.6 - 10.7 10*3/uL [place] Test Performed by [facility], [address] [place] [id number] [place] [address] Comp Metabolic Panelon 01-30 ALP [Catalytic activity/Vol] 112 U/L Normal 38-126 [facility] Comment on above: Performed By: #### C MP3, MG3, HEMDF #### [place] [address] [place], [place] ALT [Catalytic activity/Vol] 20 U/L Normal 0-34 [facility] Comment on above: Result Comment: The ALT test is performed by an updated assay method. Please note that the reference intervals have been changed and are now sex specific. Performed By: #### C MP3, MG3, HEMDF #### [address] [place] [address] [place], [place] Calcium [Mass/Vol] 9.3 mg/dL Normal 8.4-10.4 [facility] Comment on above: Performed By: #### C MP3, MG3, HEMDF #### [facility] [address] [place], [place] Glucose [Mass/Vol] 119 mg/dL High 70-100 [facility] Comment on above: Performed By: #### C MP3, MG3, HEMDF #### [facility] [address] [place] Urea nitrogen [Mass/Vol] 16 mg/dL Normal 7-20 [facility] Comment on above: Performed By: #### C MP3, MG3, HEMDF #### [address] [place] [address] [place], [place] Anion gap [Moles/Vol] 9 Normal [facility] Comment on above: Performed By: #### C MP3, MG3, HEMDF #### [place] [address] [place] AST [Catalytic activity/Vol] 26 U/L Normal 15-46 [facility] Comment on above: Performed By: #### C MP3, MG3, HEMDF #### [place] [address] [place] [place] Bilirubin [Mass/Vol] 0.2 mg/dL Normal 0.2-1.3 [facility] Comment on above: Performed By: #### C MP3, MG3, HEMDF #### [facility] [address] [place], [place] CO2 [Moles/Vol] 28 mmol/L Normal 22-30 [facility] Comment on above: Performed By: #### C MP3, MG3, HEMDF #### [place] [address] [place] [place] Creatinine [Mass/Vol] 0.54 mg/dL Normal 0.52-1.25 [facility] Comment on above: Performed By: #### C MP3, MG3, HEMDF #### [facility] [address] [place], [place] GFR/1.73 sq M predicted among blacks MDRD (S/P/Bld) [Vol rate/Area] mL/min/{1.73_m2} Normal >60 [facility] Comment on above: Performed By: #### C MP3, MG3, HEMDF #### [facility] [address] [place] [address] GFR/1.73 sq M predicted among non-blacks MDRD (S/P/Bld) [Vol rate/Area] mL/min/{1.73_m2} Normal >60 [facility] Comment on above: Result Comment: KDIG O [...] MP3, MG3, HEMDF #### [facility] [address] [place] [address] Protein [Mass/Vol] 6.9 g/dL Normal 6.3-8.2 [facility] Comment on above: Performed By: #### C MP3, MG3, HEMDF #### [facility] [address] [place] [address] Chloride [Moles/Vol] 102 mmol/L Normal 98-107 [facility] Comment on above: Performed By: #### C MP3, MG3, HEMDF #### [address] [place] [address] [place] [address] Potassium [Moles/Vol] 4.5 mmol/L Normal 3.5-5.1 [facility] Comment on above: Performed By: #### C MP3, MG3, HEMDF #### [facility] [address] [place] [address] Sodium [Moles/Vol] 139 mmol/L Normal 135-145 [facility] Comment on above: Performed By: #### C MP3, MG3, HEMDF #### [facility] [address] [place] [address] Albumin [Mass/Vol] 3.8 g/dL Normal 3.5-5.0 [facility] Comment on above: Performed By: #### C MP3, MG3, HEMDF #### [facility] [address] [place] [address] Comprehensive Metabolic Pane cory 01-31-2020 Albumin [Mass/Vol] 3.8 g/dL 3.5 - 5 g/dL [place] ALP [Catalytic activity/Vol] 112 U/L 38 - 126 U/L [place] ALT [Catalytic activity/Vol] 20 U/L 0 - 34 U/L [place] Comment on above: The ALT test is perf ormed by an updated assay method. Please note that the reference intervals have been changed and are now sex specific. Anion gap [Moles/Vol] 9 mmol/L [place] AST [Catalytic activity/Vol] 26 U/L 15 - 46 U/L [place] Bilirubin Ql (U) 0.2 mg/dL 0.2 - 1.3 mg/dL [place] Calcium [Mass/Vol] 9.3 mg/dL 8.4 - 10. 4 mg/dL [place] Chloride [Moles/Vol] 102 mmol/L 98 - 10 7 mmol/L [place] CO2 [Moles/Vol] 28 mmol/L 22 - 30 mmol/L [place] Creatinine [Mass/Vol] 0.54 mg/dL 0.52 - 1.25 mg/dL [place] EGFR IF NonAfrican Citizen Of [place] >90.0 >60 mL/min [place] Comment on above: KDIGO guidelines pro [...] MDRD (S/P/Bld) [Vol rate/Area] mL/min/{1.73_m2} >60 mL/min [place] Glucose [Mass/Vol] 119 mg/dL High 70 - 100 mg/dL [place] Interpretation and review of laboratory results Abnormal [place] Potassium [Moles/Vol] 4.5 mmol/L 3.5 - 5.1 mmol/L [place] Protein [Mass/Vol] 6.9 g/dL 6.3 - 8.2 g/dL [place] Sodium [Moles/Vol] 139 mmol/L 135 - 145 mmol/L [place] Urea nitrogen [Mass/Vol] 16 mg/dL 7 - 20 mg/d L [place] Hemogram w/ Autodiffon 01-30 Abs Baso Cnt 0.0 10*3/uL Normal 0.0-0.2 [facility] Comment on above: Performed By: #### C MP3, MG3, HEMDF #### [facility] [address] Abs Neutrophile Cnt 7.6 10*3/uL High 1.8-7.0 [facility] Comment on above: Performed By: #### C MP3, MG3, HEMDF #### [facility] [address] [address] Basophils/100 WBC (Bld) 0.1 % Normal 0.0-2.0 S [facility] Comment on above: Performed By: #### C MP3, MG3, HEMDF #### [place] [address] [place] Eosinophils (Bld) [#/Vol] 0.0 10*3/uL Normal 0.0-0.5 [facility] Comment on above: Performed By: #### C MP3, MG3, HEMDF #### [place] [address] [place] Eosinophils/100 WBC (Bld) 0.0 % Low 1.0-6.0 [facility] Comment on above: Performed By: #### C MP3, MG3, HEMDF #### [place] [address] [place] Erythrocyte distribution width (RBC) [Ratio] 14.3 % Normal 11.5-14.5 [facility] Comment on above: Performed By: #### C MP3, MG3, HEMDF #### [place] [address] [place] Granulocytes/100 WBC (Bld) 94.4 % High 40.0-80.0 [facility] Comment on above: Performed By: #### C MP3, MG3, HEMDF #### [place] [address] [place] Hematocrit (Bld) [Volume fraction] 35.2 % Normal 35.0-47.0 [facility] Comment on above: Performed By: #### C MP3, MG3, HEMDF #### [place] [address] [place] Hemoglobin (Bld) [Mass/Vol] 11.3 g/dL Low 11.7-16.0 [facility] Comment on above: Performed By: #### C MP3, MG3, HEMDF #### [place] [address] [place] Lymphocytes (Bld) [#/Vol] 0.2 10*3/uL Low 1.0-4.3 [facility] Comment on above: Performed By: #### C MP3, MG3, HEMDF #### [place] [address] [place] Lymphocytes/100 WBC (Bld) 2.8 % Low 20.0-40.0 [facility] Comment on above: Performed By: #### C MP3, MG3, HEMDF #### [place] [address] [place] MCH (RBC) [Entitic mass] 29.2 pg Normal 26.0-34.0 [facility] Comment on above: Performed By: #### C MP3, MG3, HEMDF #### [address] MCHC (RBC) [Mass/Vol] 32.2 % Normal 32.0-36.0 [facility] Comment on above: Performed By: #### C MP3, MG3, HEMDF #### [address] MCV (RBC) [Entitic vol] 90.7 fL Normal 79.0-98.0 S [facility] Comment on above: Performed By: #### C MP3, MG3, HEMDF #### [place] [address] [place] Monocytes (Bld) [#/Vol] 0.2 10*3/uL Normal 0.0-0.8 [facility] Comment on above: Performed By: #### C MP3, MG3, HEMDF #### [address] Monocytes/100 WBC (Bld) 2.7 % Normal 2.0-10.0 S [facility] Comment on above: Performed By: #### C MP3, MG3, HEMDF #### [address] Platelet mean volume (Bld) [Entitic vol] 8.1 fL Normal 7.4-10.4 [facility] Comment on above: Performed By: #### C MP3, MG3, HEMDF #### [facility] [address] [place], [place] Platelets (Bld) [#/Vol] 252 10*3/uL Normal 140-440 [facility] Comment on above: Performed By: #### C MP3, MG3, HEMDF #### [place] [address] [place] RBC (Bld) [#/Vol] 3.88 10*6/uL Normal 3.80-5.20 [facility] Comment on above: Performed By: #### C MP3, MG3, HEMDF #### [place] [address] [place] WBC (Bld) [#/Vol] 8.1 10*3/uL Normal 3.6-10.7 [facility] Comment on above: Performed By: #### C MP3, MG3, HEMDF #### [place] [address] [place] Magnesiumon 01-31-2020 Magnesium [Mass/Vol] 1.8 mg/dL Normal 1.6-2.3 [facility] Comment on above: Performed By: #### C MP3, MG3, HEMDF #### [place] [address] [place] Magnesium [Mass/Vol] 1.8 mg/dL 1.6 - 2 .3 mg/dL [place] Otheron 01-31-2020 Test Performed by [place] [address] [place] [address] [place], [place] CBC Auto Differentialon Absolute Baso # 0.0 10*3/uL 0 - 0.2 10*3/uL [place] Absolute Neut # 5.1 10*3/uL 1.8 - 7 10*3/uL [place] Basophils/100 WBC (Bld) 0.5 % 0 - 2 % [place] Eosinophils (Bld) [#/Vol] 0.5 10*3/uL 0 - 0.5 10*3/uL [place] Eosinophils/100 WBC (Bld) 6.7 % High 1 - 6 % [place] Erythrocyte distribution width (RBC) [Ratio] 14.5 % 11.5 - 14.5 % [place] Granulocytes/100 WBC (Bld) 73.3 % 40 - 80 % [place] Hematocrit (Bld) [Volume fraction] 35.8 % 35 - 47 % [place] Hemoglobin (Bld) [Mass/Vol] 11.5 g/dL Low 11.7 - 16 g/dL [place] Interpretation and review of laboratory results Abnormal [place] Lymphocytes (Bld) [#/Vol] 0.8 10*3/uL Low 1 - 4.3 10*3/uL [place] Lymphocytes/100 WBC (Bld) 12.2 % Low 20 - 40 % [place] MCH (RBC) [Entitic mass] 29.3 pg 26 - 34 pg [place] MCHC (RBC) [Mass/Vol] 32.2 % 32 - 36 % [place] MCV (RBC) [Entitic vol] 90.9 fL 79 - 98 fL [place] Monocytes (Bld) [#/Vol] 0.5 10*3/uL 0 - 0.8 10*3/uL [place] Monocytes/100 WBC (Bld) 7.3 % 2 - 10 % [place] Platelet mean volume (Bld) [Entitic vol] 8.1 fL 7.4 - 10.4 fL [place] Platelets (Bld) [#/Vol] 219 10*3/uL 140 - 440 10*3/uL [place] RBC (Bld) [#/Vol] 3.94 10*6/uL 3.8 - 5.2 10*6/uL [place] WBC (Bld) [#/Vol] 6.9 10*3/uL 3.6 - 10.7 10*3/uL [place] Test [facility], [address], [place], [place] [id number] [place] [address] Comprehensive Metabolic Pane cory 11-05-2020 Albumin [Mass/Vol] 3.9 g/dL 3.5 - 5 g/dL [place] ALP [Catalytic activity/Vol] 97 U/L 38 - 126 U/L [place] ALT [Catalytic activity/Vol] 22 U/L 0 - 34 U/L [place] Comment on above: The ALT test is perf ormed by an updated assay method. Please note that the reference intervals have been changed and are now sex specific. Anion gap [Moles/Vol] 7 mmol/L [place] AST [Catalytic activity/Vol] 27 U/L 15 - 46 U/L [place] Bilirubin Ql (U) 0.4 mg/dL 0.2 - 1.3 mg/dL [place] Calcium [Mass/Vol] 9.4 mg/dL 8.4 - 10. 4 mg/dL [place] Chloride [Moles/Vol] 102 mmol/L 98 - 10 7 mmol/L [place] CO2 [Moles/Vol] 31 mmol/L High 22 - 30 mmol/L [place] Creatinine [Mass/Vol] 0.73 mg/dL 0.52 - 1.25 mg/dL [place] EGFR IF NonAfrican Citizen [place] 87.5 mL/min >60 [place] Comment on above: KDIGO guidelines pro [...] MDRD (S/P/Bld) [Vol rate/Area] mL/min/{1.73_m2} >60 mL/min [place] Glucose [Mass/Vol] 106 mg/dL High 70 - 100 mg/dL [place] Interpretation and review of laboratory results Abnormal [place] Potassium [Moles/Vol] 4.3 mmol/L 3.5 - 5.1 mmol/L [place] Protein [Mass/Vol] 6.8 g/dL 6.3 - 8.2 g/dL [place] Sodium [Moles/Vol] 140 mmol/L 135 - 145 mmol/L [place] Urea nitrogen [Mass/Vol] 20 mg/dL 7 - 20 mg/d L [place] Magnesiumon 01-24-2020 Magnesium [Mass/Vol] 2.0 mg/dL 1.6 - 2 .3 mg/dL [place] Otheron 01-24-2020 Test Performed by [facility], [address] [place] [id number] [place] [address] CBC Auto Differentialon -2 Absolute Baso # 0.1 10*3/uL 0 - 0.2 10*3/uL [place] Absolute Neut # 5.5 10*3/uL 1.8 - 7 10*3/uL [place] Basophils/100 WBC (Bld) 1.0 % 0 - 2 % [place] Eosinophils (Bld) [#/Vol] 1.2 10*3/uL High 0 - 0.5 10*3/uL [place] Eosinophils/100 WBC (Bld) 13.8 % High 1 - 6 % [place] Erythrocyte distribution width (RBC) [Ratio] 14.0 % 11.5 - 14.5 % [place] Granulocytes/100 WBC (Bld) 63.2 % 40 - 80 % [place] Hematocrit (Bld) [Volume fraction] 37.1 % 35 - 47 % [place] Hemoglobin (Bld) [Mass/Vol] 12.4 g/dL 11.7 - 16 g/dL [place] Interpretation and review of laboratory results Abnormal [place] Lymphocytes (Bld) [#/Vol] 1.3 10*3/uL 1 - 4.3 10*3/uL [place] Lymphocytes/100 WBC (Bld) 15.1 % Low 20 - 40 % [place] MCH (RBC) [Entitic mass] 30.2 pg 26 - 34 pg [place] MCHC (RBC) [Mass/Vol] 33.5 % 32 - 36 % [place] MCV (RBC) [Entitic vol] 90.0 fL 79 - 98 fL [place] Monocytes (Bld) [#/Vol] 0.6 10*3/uL 0 - 0.8 10*3/uL [place] Monocytes/100 WBC (Bld) 6.9 % 2 - 10 % [place] Platelet mean volume (Bld) [Entitic vol] 8.1 fL 7.4 - 10.4 fL [place] Platelets (Bld) [#/Vol] 224 10*3/uL 140 - 440 10*3/uL [place] RBC (Bld) [#/Vol] 4.12 10*6/uL 3.8 - 5.2 10*6/uL [place] WBC (Bld) [#/Vol] 8.7 10*3/uL 3.6 - 10.7 10*3/uL [place] Test Performed by [facility], [address] [place], [place] [address] [place] Comprehensive Metabolic Pane cory 01-17-2020 Albumin [Mass/Vol] 3.8 g/dL 3.5 - 5 g/dL [place] ALP [Catalytic activity/Vol] 99 U/L 38 - 126 U/L [place] ALT [Catalytic activity/Vol] 17 U/L 0 - 34 U/L [place] Comment on above: The ALT test is perf ormed by an updated assay method. Please note that the reference intervals have been changed and are now sex specific. Anion gap [Moles/Vol] 7 mmol/L [place] AST [Catalytic activity/Vol] 29 U/L 15 - 46 U/L [place] Bilirubin Ql (U) 0.3 mg/dL 0.2 - 1.3 mg/dL [place] Calcium [Mass/Vol] 8.7 mg/dL 8.4 - 10. 4 mg/dL [place] Chloride [Moles/Vol] 102 mmol/L 98 - 10 7 mmol/L [place] CO2 [Moles/Vol] 33 mmol/L High 22 - 30 mmol/L [place] Creatinine [Mass/Vol] 0.75 mg/dL 0.52 - 1.25 mg/dL [place] EGFR IF NonAfrican Citizen [place] 84.7 mL/min >60 [place] Comment on above: KDIGO guidelines pro [...] MDRD (S/P/Bld) [Vol rate/Area] mL/min/{1.73_m2} >60 mL/min [place] Glucose [Mass/Vol] 93 mg/dL 70 - 100 mg/dL [place] Interpretation and review of laboratory results Abnormal [place] Potassium [Moles/Vol] 2.8 mmol/L Low 3.5 - 5.1 mmol/L [facility] [place] Protein [Mass/Vol] 6.6 g/dL 6.3 - 8.2 g/dL [place] Sodium [Moles/Vol] 142 mmol/L 135 - 145 mmol/L [place] Urea nitrogen [Mass/Vol] 9 mg/dL 7 - 20 mg/d L [place] Magnesiumon 01-17-2020 Magnesium [Mass/Vol] 1.9 mg/dL 1.6 - 2 .3 mg/dL [place] Otheron 01-17-2020 Test Performed by [facility], [address] [place], [place], [place] [id number] [place] [address] CT Nonbill Guide Rad Therapy on 12-26-2019 CT Nonbill Guide Rad Therapy Patient Name: GONZALO DELUCA CT Exam Date/Time 12/26/2019 11:38:[address] Nonbill Guide Rad Therapy Ordering Physician MD WU, BURKE E Accession Number [id number] Reason For Exam Endometriod Ca Report CT of the abdomen and pelvis without intravenous contrast, 12/26/2019. Reason for examination: Endometrial cancer. Patient for radiation therapy. COMPARISON: October 27, 2019. TECHNIQUE: Large [id number] 3 mm axial images were obtained through [...] Transcribed Date and Time: 12/26/2019 3:50 Normal [facility] Otheron 12-26-2019 Patient Name: GONZALO DELUCA ---CT--- Exam Date/Time 12/26/2019 11:38:[address] Nonbill Guide Rad Therapy Ordering Physician MD WU, BURKE E Accession Number [id number] Reason For Exam Endometriod Ca Report CT of the abdomen and pelvis without intravenous contrast, 12/26/2019. Reason for examination: Endometrial cancer. Patient for radiation therapy. COMPARISON: October 27, 2019. TECHNIQUE: Large gwcik-hx-blwt 3 mm axial images were obtained through [...] M Transcribed Date and Time: 12/26/2019 3:50 [facility]- [place], [place] [facility], [facility] Incoming Radiology Results From [facility] - 12/26/2019 3:55 PM EDT Patient Name: GONZALO DELUCA ---CT--- Exam Date/Time 12/26/2019 11:38:[address] Nonbill Guide Rad Therapy Ordering Physician MD WU, BURKE E Accession Number [id number] Reason For Exam Endometriod Ca Report CT of the abdomen and pelvis without intravenous contrast, 12/26/2019. Reason for examination: Endometrial cancer. Patient for radiation therapy. COMPARISON: October 27, 2019. TECHNIQUE: Large elwbl-tg-ygss 3 mm axial images were obtained through [...] Date and Time: 12/26/2019 3:50 [facility], [place] XA SPECIAL ANGIOGRAPHY PROCE Omi 12-19-2019 Patient Name: GONZALO DELUCA ---Special Procedures--- Exam Date/Time 12/19/2019 14:31:06 EDT Exam XA Special Angiography Procedure Ordering Physician ZIAYD MENENDEZ Accession Number [id number] Reason For Exam Mediport placement Report LEFT [...] MALAY Transcribed Date and Time: 12/19/2019 2:32 [facility] [place] [facility], [facility] Incoming Radiology Results From [facility] - 12/19/2019 2:33 PM EDT Patient Name: GONZALO DELUCA ---Special Procedures--- Exam Date/Time 12/19/2019 14:31:06 EDT Exam XA Special Angiography Procedure Ordering Physician MENENDEZ ZIYAD Accession Number [id number] Reason For Exam Mediport placement Report LEFT [...] MALAY Transcribed Date and Time: 12/19/2019 2:32 [facility], [facility] XR CHEST PORTABLEon 12-19-19 Patient Name: GONZALO DELUCA ---Diagnostic Radiology--- Exam Date/Time 12/19/2019 14:50:00 EDT Exam CR Chest Portable Ordering Physician MD GLADIS, SANTOS Accession Number [id number] CPT4 Codes 21869 () Reason For Exam Med Port placement She is in [facility] room 12. She can go home after Dr. Gladis rocha's the XRay. Please contact him at [phone] when it is available. Thanks Report CLINICAL [...] JEFFREY Transcribed Date and Time: 12/19/2019 3:06 [place], [place] Real, [facility] Incoming Radiology Results From Replaced By [facility] - 12/19/2019 3:06 PM EDT Patient Name: GONZALO DEULCA ---Diagnostic Radiology--- Exam Date/Time 12/19/2019 14:50:00 EDT Exam CR Chest Portable Ordering Physician MD GLADIS, SANTOS Accession Number [id number] CPT4 Codes 44044 () Reason For Exam Med Port placement She is in ACS room 12. She can go home after Dr. Gladis rocha's the XRay. Please contact him at *[phone] when it is available. Thanks Report CLINICAL [...] JEFFREY Transcribed Date and Time: 12/19/2019 3:06 [place], [place] Basic Metabolic Panel w/ Ref familia to MGon 11-24-2019 Anion gap [Moles/Vol] 4 mmol/L [place] Calcium [Mass/Vol] 8.3 mg/dL Low 8.4 - 10. 4 mg/dL [place] Chloride [Moles/Vol] 102 mmol/L 98 - 10 7 mmol/L [place] CO2 [Moles/Vol] 27 mmol/L 22 - 30 mmol/L [place] Creatinine [Mass/Vol] 0.52 mg/dL 0.52 - 1.25 mg/dL [place] EGFR IF NonAfrican Citizen Of [place] >90.0 >60 mL/min [place] Comment on above: KDIGO guidelines pro [...] MDRD (S/P/Bld) [Vol rate/Area] mL/min/{1.73_m2} >60 mL/min [place] Glucose [Mass/Vol] 84 mg/dL 70 - 100 mg/dL [place] Interpretation and review of laboratory results Abnormal [place] Potassium [Moles/Vol] 3.8 mmol/L 3.5 - 5.1 mmol/L [place] Sodium [Moles/Vol] 133 mmol/L Low 135 - 145 mmol/L [place] Urea nitrogen [Mass/Vol] 8 mg/dL 7 - 20 mg/d L [place] Test Performed by [facility] [email or web address] [facility], [address], [place], [place] [address] [place] CBC Auto Differentialon -2019 Absolute Baso # 0.0 10*3/uL 0 - 0.2 10*3/uL [place] Absolute Neut # 5.9 10*3/uL 1.8 - 7 10*3/uL [place] Basophils/100 WBC (Bld) 0.5 % 0 - 2 % [place] Eosinophils (Bld) [#/Vol] 0.2 10*3/uL 0 - 0.5 10*3/uL [place] Eosinophils/100 WBC (Bld) 2.6 % 1 - 6 % [place] Erythrocyte distribution width (RBC) [Ratio] 13.8 % 11.5 - 14.5 % [place] Granulocytes/100 WBC (Bld) 78.0 % 40 - 80 % [place] Hematocrit (Bld) [Volume fraction] 31.1 % Low 35 - 47 % [place] Hemoglobin (Bld) [Mass/Vol] 10.0 g/dL Low 11.7 - 16 g/dL [place] Interpretation and review of laboratory results Abnormal [place] Lymphocytes (Bld) [#/Vol] 0.9 10*3/uL Low 1 - 4.3 10*3/uL [place] Lymphocytes/100 WBC (Bld) 12.2 % Low 20 - 40 % [place] MCH (RBC) [Entitic mass] 30.5 pg 26 - 34 pg [place] MCHC (RBC) [Mass/Vol] 32.3 % 32 - 36 % [facility] (RBC) [Entitic vol] 94.5 fL 79 - 98 fL [facility] ONEL Monocytes (Bld) [#/Vol] 0.5 10*3/uL 0 - 0.8 10*3/uL [place] Monocytes/100 WBC (Bld) 6.7 % 2 - 10 % [facility] ONEL Platelet mean volume (Bld) [Entitic vol] 6.7 fL Low 7.4 - 10.4 fL [place] Platelets (Bld) [#/Vol] 378 10*3/uL 140 - 440 10*3/uL [place] RBC (Bld) [#/Vol] 3.29 10*6/uL Low 3.8 - 5.2 10*6/uL [place] WBC (Bld) [#/Vol] 7.6 10*3/uL 3.6 - 10.7 10*3/uL [place] Test Performed by [facility], [address], [place], [place] [address] [place], [place] VL DUP CAROTID BILATERALon 0 11-24-2019 Real, [facility] Cardiology Results From Jessika/Anny - 11/24/2019 9:57 AM EDT [facility] ----- Carotid Duplex Report Ordering Physician: Aparna Walter Transportation Worker: Alexa De León Interpreting Physician: Austyn Dee MD ----- Location: [facility] ----- Indications: Right arm weakness. ----- [...] supine position. Images were obtained using a SharePlow E9 vascular ultrasound machine. ----- Findings Carotid/vertebral [...] signed by Austyn Dee MD 11/24/2019 09:57 [facility] [place], [place] [facility] ----- Carotid Duplex Report Ordering Physician: Aparna Walter Transportation Worker: Alexa De León Interpreting Physician: Austyn Dee MD ----- Location: [facility] ----- Indications: Right arm weakness. ----- [...] supine position. Images were obtained using a SharePlow E9 vascular ultrasound machine. ----- Findings Carotid/vertebral [...] Austyn Dee MD 11/24/2019 09:57 [facility], [place] Basic Metabolic Panel w/ Ref familia to MGon 11-23-2019 Anion gap [Moles/Vol] 3 mmol/L [facility], [place] Calcium [Mass/Vol] 8.6 mg/dL 8.4 - 10. 4 mg/dL [facility], [place] Chloride [Moles/Vol] 101 mmol/L 98 - 10 7 mmol/L [place] CO2 [Moles/Vol] 31 mmol/L High 22 - 30 mmol/L [place] Creatinine [Mass/Vol] 0.55 mg/dL 0.52 - 1.25 mg/dL [place] EGFR IF NonAfrican Citizen Of [place] >90.0 >60 mL/min [place] Comment on above: KDIGO guidelines pro [...] MDRD (S/P/Bld) [Vol rate/Area] mL/min/{1.73_m2} >60 mL/min [place] Glucose [Mass/Vol] 87 mg/dL 70 - 100 mg/dL [place] Interpretation and review of laboratory results Abnormal [place] Potassium [Moles/Vol] 4.0 mmol/L 3.5 - 5.1 mmol/L [place] Sodium [Moles/Vol] 136 mmol/L 135 - 145 mmol/L [place] Urea nitrogen [Mass/Vol] 12 mg/dL 7 - 20 mg/d L [place] Test [facility] by [facility], [address], [place], [place] [address] [place], [place] CBC Auto Differentialon 09-0 Absolute Baso # 0.0 10*3/uL 0 - 0.2 10*3/uL [place] Absolute Neut # 5.3 10*3/uL 1.8 - 7 10*3/uL [place] Basophils/100 WBC (Bld) 0.6 % 0 - 2 % [place] Eosinophils (Bld) [#/Vol] 0.3 10*3/uL 0 - 0.5 10*3/uL [place] Eosinophils/100 WBC (Bld) 3.6 % 1 - 6 % [place] Erythrocyte distribution width (RBC) [Ratio] 13.7 % 11.5 - 14.5 % [place] Granulocytes/100 WBC (Bld) 73.0 % 40 - 80 % [place] Hematocrit (Bld) [Volume fraction] 30.5 % Low 35 - 47 % [place] Hemoglobin (Bld) [Mass/Vol] 9.9 g/dL Low 11.7 - 16 g/dL [place] Interpretation and review of laboratory results Abnormal [place] Lymphocytes (Bld) [#/Vol] 1.1 10*3/uL 1 - 4.3 10*3/uL [place] Lymphocytes/100 WBC (Bld) 14.8 % Low 20 - 40 % [place] MCH (RBC) [Entitic mass] 30.5 pg 26 - 34 pg [place] MCHC (RBC) [Mass/Vol] 32.3 % 32 - 36 % [place] MCV (RBC) [Entitic vol] 94.3 fL 79 - 98 fL [place] Monocytes (Bld) [#/Vol] 0.6 10*3/uL 0 - 0.8 10*3/uL [place] Monocytes/100 WBC (Bld) 8.0 % 2 - 10 % [place] Platelet mean volume (Bld) [Entitic vol] 6.6 fL Low 7.4 - 10.4 fL [place] Platelets (Bld) [#/Vol] 366 10*3/uL 140 - 440 10*3/uL [place] RBC (Bld) [#/Vol] 3.24 10*6/uL Low 3.8 - 5.2 10*6/uL [place], [place] WBC (Bld) [#/Vol] 7.3 10*3/uL 3.6 - 10.7 10*3/uL [place] Test Performed by [facility], [address], [place], [place] [address] [facility], ONEL ECHO Complete 2D W Doppler W Coloron 11-23-2019 TRANSTHORACIC ECHOCARDIOGRAM PATIENT: Gonzalo Deluca STUDY DATE: 11/23/2019 : 1955 AGE: 64 HT/WT: 165.1 cm (65 70.8 kg in) (155.7 lb) GENDER: F BP: 124 / 79 LOCATION: [facility] PATIENT Inpatient [facility] STATUS: *ORDERING PHYSICIAN: * Lauren Serna *RN: * Alea Gomez *READING PHYSICIAN: Haritha MgMEMORY CARE PROGRAM DIRECTOR: Haritha Vital MD RD, AE ----- INDICATIONS: [...] Srini Vital MD 11/23/2019 11:59 Prior Signatures: [facility] Incoming Cardiology Results From [facility] - 11/23/2019 11:59 AM EDT TRANSTHORACIC ECHOCARDIOGRAM PATIENT: Gonzalo Deluca STUDY DATE: 11/23/2019 : 1955 AGE: 64 HT/WT: 165.1 cm (65 70.8 kg in) (155.7 lb) GENDER: F BP: 124 / 79 LOCATION: [facility] PATIENT Inpatient [facility] STATUS: *ORDERING PHYSICIAN: * Lauren Serna *RN: * Alea Gomez *READING PHYSICIAN: * Srini *MEMORY CARE PROGRAM DIRECTOR: * Jany Vital MD RDCS, AE ----- [...] Srini Vital MD 11/23/2019 11:59 Prior Signatures: [place], [place] CBCon 11-22-2019 Erythrocyte distribution width (RBC) [Ratio] 13.8 % 11.5 - 14.5 % [place] Hematocrit (Bld) [Volume fraction] 29.9 % Low 35 - 47 % [place] Hemoglobin (Bld) [Mass/Vol] 9.6 g/dL Low 11.7 - 16 g/dL [place] Interpretation and review of laboratory results Abnormal [place] MCH (RBC) [Entitic mass] 30.3 pg 26 - 34 pg [place] MCHC (RBC) [Mass/Vol] 31.9 % Low 32 - 36 % [place] MCV (RBC) [Entitic vol] 94.9 fL 79 - 98 fL [place] Platelet mean volume (Bld) [Entitic vol] 7.2 fL Low 7.4 - 10.4 fL [place] Platelets (Bld) [#/Vol] 380 10*3/uL 140 - 440 10*3/uL [place] RBC (Bld) [#/Vol] 3.15 10*6/uL Low 3.8 - 5.2 10*6/uL [place] WBC (Bld) [#/Vol] 8.9 10*3/uL 3.6 - 10.7 10*3/uL [place] Test Performed by [facility], [address] [place], [place] [id number] [place] [address] Comprehensive Metabolic Pane l w/ Reflex to MGon 11-22-2019 Albumin [Mass/Vol] 2.8 g/dL Low 3.5 - 5 g/dL [place] ALP [Catalytic activity/Vol] 77 U/L 38 - 126 U/L [place] ALT [Catalytic activity/Vol] 20 U/L 0 - 34 U/L [place] Comment on above: The ALT test is perf ormed by an updated assay method. Please note that the reference intervals have been changed and are now sex specific. Anion gap [Moles/Vol] 4 mmol/L [place], [place] AST [Catalytic activity/Vol] 52 U/L High 15 - 46 U/L [place] Bilirubin Ql (U) 0.2 mg/dL 0.2 - 1.3 mg/dL [place] Calcium [Mass/Vol] 8.3 mg/dL Low 8.4 - 10. 4 mg/dL [place] Chloride [Moles/Vol] 103 mmol/L 98 - 10 7 mmol/L [place] CO2 [Moles/Vol] 33 mmol/L High 22 - 30 mmol/L [place] Creatinine [Mass/Vol] 0.54 mg/dL 0.52 - 1.25 mg/dL [place] EGFR IF NonAfrican Citizen Of [place] >90.0 >60 mL/min [place] Comment on above: KDIGO guidelines pro [...] MDRD (S/P/Bld) [Vol rate/Area] mL/min/{1.73_m2} >60 mL/min [place] Glucose [Mass/Vol] 99 mg/dL 70 - 100 mg/dL [place] Interpretation and review of laboratory results Abnormal [place] Potassium [Moles/Vol] 3.1 mmol/L Low 3.5 - 5.1 mmol/L [place] Protein [Mass/Vol] 5.4 g/dL Low 6.3 - 8.2 g/dL [place] Sodium [Moles/Vol] 140 mmol/L 135 - 145 mmol/L [place] Urea nitrogen [Mass/Vol] 11 mg/dL 7 - 20 mg/d L [place] EKG 12 Lead if not already d one by divya 11-22-2019 [facility], [facility] Incoming Cardiology Results From [facility] - 11/22/2019 12:02 PM EDT [facility] Test Date: 2019-11-21 Pat Name: Gonzalo Deluca Department: 01 Room: 454 Gender: F 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 : 1955 Requested By: RAY BARROSO Order Number: [id number] Reading MD: Vicente Brown Measurements Intervals [place] Rate: 89 P: 42 AR: 152 QRS: -20 QRSD: 100 T: 18 QT: 376 QTc: 458 Interpretive Statements SINUS RHYTHM Compared to ECG 08/02/2019 18:19:40 Ventricular premature complex(es) no longer present Electronically Signed On 11-22-2019 12:01:36 EDT by [employer] [facility] Test Date: 2019-11-21 Pat Name: Gonzalo Deluca Department: 01 Room: 454 Gender: F 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 : 1955 Requested By: RAY BARROSO Order Number: [id number] Reading MD: Vicente FUNGO STUDIOS Measurements Intervals [place] Rate: 89 P: 42 AR: 152 QRS: -20 QRSD: 100 T: 18 QT: 376 QTc: 458 Interpretive Statements SINUS RHYTHM Compared to ECG 08/02/2019 18:19:40 Ventricular premature complex(es) no longer present Electronically Signed On 11-22-2019 12:01:36 EDT by [employer] [place] Hemoglobin A1con 11-22-2019 eAG 100 mg/dL [place] HbA1c (Bld) [Mass fraction] 5.1 % 4 - 6 % [place] Comment on above: --HgbA1C levels may not be accurate in patients who have renal disease, received recent blood transfusions, are anemic, or who have dyshemoglobinemia. Test Performed by [facility], [address] [place], [place] [id number] [place] [address] Lipid panel - fastingon Cholesterol [Mass/Vol] 132 mg/dL <200 [place] Cholesterol in HDL [Mass/Vol] 41 mg/dL 40 - 60 mg/dL [place] Cholesterol in LDL [Mass/Vol] 68 mg/dL <100 [place] Cholesterol.total/Choles terol in HDL [Mass ratio] 3 {ratio} [place], [place] Comment on above: Ref Range: < 3 Low Risk for CHD 3-6 Mod Risk for CHD > 6 High Risk for CHD Triglyceride [Mass/Vol] 116 mg/dL <150 [place] Magnesiumon 11-22-2019 Magnesium [Mass/Vol] 1.9 mg/dL 1.6 - 2 .3 mg/dL [place] Test Performed by [facility] [email or web address] [facility], [address] [place], [address] Otheron 11-22-2019 Test Performed by [facility], [address] VL LOWER EXTREMITY VENOUS RI GHT [id number] 11-22-2019 [facility] ----- Right Lower Extremity Venous Duplex Report Ordering Physician: Lauren Serna Transportation Worker: Eh Rojas Interpreting Physician: Josef Cochran ----- Location: [facility] ----- Indications: Right sided swelling. ----- [...] supine position. Images were obtained using a SharePlow E9 vascular ultrasound machine. ----- Venous flow [...] electronically signed by Josef Cochran 11/22/2019 14:37 [facility] [place], [place] [facility] Results From Jessika/Anny - 11/22/2019 2:37 PM EDT [facility] ----- Right Lower Extremity Venous Duplex Report Ordering Physician: Lauren Serna Transportation Worker: Eh Rojas Interpreting Physician: Josef Cochran ----- Location: [facility] ----- Indications: Right sided swelling. ----- [...] supine position. Images were obtained using a SharePlow E9 vascular ultrasound machine. ----- Venous flow [...] electronically signed by Josef Cochran 11/22/2019 14:37 [place] APTTon 11-21-2019 aPTT Coag (Bld) [Time] 23.6 s 20 - 30.5 s [place] Comment on above: NOTE: The therapeuti c time for Heparin anticoagulation, based on Xa activity inhibition, is an APTT of 46-80 seconds. CBC Auto Differentialon Absolute Baso # 0.1 10*3/uL 0 - 0.2 10*3/uL [place] Absolute Neut # 4.8 10*3/uL 1.8 - 7 10*3/uL [place] Basophils/100 WBC (Bld) 0.7 % 0 - 2 % [place] Eosinophils (Bld) [#/Vol] 0.3 10*3/uL 0 - 0.5 10*3/uL [place] Eosinophils/100 WBC (Bld) 3.7 % 1 - 6 % [place] Erythrocyte distribution width (RBC) [Ratio] 14.0 % 11.5 - 14.5 % [place] Granulocytes/100 WBC (Bld) 71.5 % 40 - 80 % [place] Hematocrit (Bld) [Volume fraction] 34.5 % Low 35 - 47 % [place] Hemoglobin (Bld) [Mass/Vol] 11.0 g/dL Low 11.7 - 16 g/dL [place] Interpretation and review of laboratory results Abnormal [place] Lymphocytes (Bld) [#/Vol] 1.1 10*3/uL 1 - 4.3 10*3/uL [place] Lymphocytes/100 WBC (Bld) 16.9 % Low 20 - 40 % [place] MCH (RBC) [Entitic mass] 30.4 pg 26 - 34 pg [place] MCHC (RBC) [Mass/Vol] 32.0 % 32 - 36 % [place] MCV (RBC) [Entitic vol] 95.1 fL 79 - 98 fL [place], [place] Monocytes (Bld) [#/Vol] 0.5 10*3/uL 0 - 0.8 10*3/uL [place] Monocytes/100 WBC (Bld) 7.2 % 2 - 10 % [place] Platelet mean volume (Bld) [Entitic vol] 6.7 fL Low 7.4 - 10.4 fL [place] Platelets (Bld) [#/Vol] 438 10*3/uL 140 - 440 10*3/uL [place] RBC (Bld) [#/Vol] 3.63 10*6/uL Low 3.8 - 5.2 10*6/uL [place] WBC (Bld) [#/Vol] 6.8 10*3/uL 3.6 - 10.7 10*3/uL [place] Test Performed by [facility], [address] [place], [place], [place] [id number] [place] [address] CT HEAD WO CONTRASTon 2019 Patient Name: GONZALO DELUCA ---CT--- Exam Date/Time 11/21/2019 16:56:[address] Head or Brain w/o Contrast Ordering Physician RAY ALLEN Accession Number [id number] CPT4 Codes 31152 () Reason For Exam right arm weakness [...] WENDELL Transcribed Date and Time: 11/21/2019 5:09 [facility], [facility] Incoming Radiology Results From Replaced By [facility] - 11/21/2019 5:09 PM EDT Patient Name: GONZALO DELUCA ---CT--- Exam Date/Time 11/21/2019 16:56:[address] Head or Brain w/o Contrast Ordering Physician RAY ALLEN Accession Number [id number] CPT4 Codes 57625 () Reason For Exam right arm weakness [...] WENDELL Transcribed Date and Time: 11/21/2019 5:09 [place] Comprehensive Metabolic Pane l w/ Reflex to MGon 11-21-2019 Albumin [Mass/Vol] 3.3 g/dL Low 3.5 - 5 g/dL [place] ALP [Catalytic activity/Vol] 96 U/L 38 - 126 U/L [place] ALT [Catalytic activity/Vol] 23 U/L 0 - 34 U/L [place] Comment on above: The ALT test is perf ormed by an updated assay method. Please note that the reference intervals have been changed and are now sex specific. Anion gap [Moles/Vol] 4 mmol/L [place] AST [Catalytic activity/Vol] 37 U/L 15 - 46 U/L [place] Bilirubin Ql (U) 0.1 mg/dL Low 0.2 - 1.3 mg/dL [place] Calcium [Mass/Vol] 9.1 mg/dL 8.4 - 10. 4 mg/dL [place] Chloride [Moles/Vol] 100 mmol/L 98 - 10 7 mmol/L [place] CO2 [Moles/Vol] 37 mmol/L High 22 - 30 mmol/L [place] Creatinine [Mass/Vol] 0.66 mg/dL 0.52 - 1.25 mg/dL [place] EGFR IF NonAfrican Citizen Of [place] >90.0 >60 mL/min [place] Comment on above: KDIGO guidelines pro [...] MDRD (S/P/Bld) [Vol rate/Area] mL/min/{1.73_m2} >60 mL/min [place] Glucose [Mass/Vol] 93 mg/dL 70 - 100 mg/dL [place] Interpretation and review of laboratory results Abnormal [place] Potassium [Moles/Vol] 3.4 mmol/L Low 3.5 - 5.1 mmol/L [place] Protein [Mass/Vol] 6.3 g/dL 6.3 - 8.2 g/dL [place] Sodium [Moles/Vol] 141 mmol/L 135 - 145 mmol/L [place] Urea nitrogen [Mass/Vol] 12 mg/dL 7 - 20 mg/d L [place] Test Performed by [facility], [address] Magnesiumon 11-21-2019 Magnesium [Mass/Vol] 2.0 mg/dL 1.6 - 2 .3 mg/dL [place] Test Performed by [facility], [address] [place], [place] [id number] [place] [address] Otheron 11-21-2019 Test Performed by [facility], [address] [place], [place] [address] [place] [address] POCT Glucoseon 11-21-2019 Glucose [Mass/Vol] 94 mg/dL 70 - 100 mg/dL [place] Comment on above: Test performed by ucose meter. Results may be 10%-15% lower than serum/plasma values. (CLIA ID [id number]) Test Performed by [facility], [address] JANNY [place], [place] [id number] [place] [address] Protime-INRon 11-21-2019 INR Coag (PPP) [Relative time] 1.0 {INR} [place] Comment on above: Recommended Anticoag ulant [...] [Time] 10.1 s 9 - 12 s [place] Comment on above: . Troponinon 11-21-2019 Troponin I.cardiac [Mass/Vol] ng/mL 0 - 0.034 ng/mL [place] Comment on above: . Test Performed by [facility], [address] JANNY, [address] [id number] 11-13-2019 SARS-CoV-2 SARS-CoV-2 --> Statu s: F Not Detected Expected Result: Not Detected _ Real-time, RT-PCR performed on the TORCH.sh System by the [facility]. Negative results do not preclude SARS-CoV-2 infection and should not be used as the sole basis for treatment or other patient management decisions. This assay was developed by [employer] and distributed under an Emergency Use Authorization (EUA) granted by the FDA for the qualitative detection of SARS-CoV-2 nucleic acid. Results were determined from a pool consisting of specimens from additional patients. This test was modified, and its performance characteristics, showing minimal loss of sensitivity, have been validated by the [facility]. Approval is pending review by the U. S. Food and Drug Administration. If symptoms are severe and persist, testing a new specimen may be warranted. Additionally, IgG testing may be considered for patients more than 7-10 days post onset of symptoms. Expected Result: Not Detected _ Real-time, RT-PCR performed on the [employer] System by the [facility]. Negative results do not preclude SARS-CoV-2 infection and should not be used as the sole basis for treatment or other patient management decisions. This assay was developed by [employer] and distributed under an Emergency Use Authorization (EUA) granted by the FDA for the qualitative detection of SARS-CoV-2 nucleic acid. Results were determined from a pool consisting of specimens from additional patients. This test was modified, and its performance characteristics, showing minimal loss of sensitivity, have been validated by the [facility]. Approval is pending review by the U. S. Food and Drug Administration. If symptoms are severe and persist, testing a new specimen may be warranted. Additionally, IgG testing may be considered for patients more than 7-10 days post onset of symptoms. Normal [facility] Comment on above: Order Comment: Speci men Source Comment:Nasopharyngeal Swab Performed By: #### C OVID ####[facility] [place], [place] Basic Metabolic Panelon 08-2 -2019 Calcium [Mass/Vol] 9.2 mg/dL Normal 8.4-10.4 [facility] Comment on above: Performed By: #### B MP3, HEMDF #### [facility] [address] [place], [place] Glucose [Mass/Vol] 120 mg/dL High 70-100 [facility] Comment on above: Performed By: #### B MP3, HEMDF #### [facility] [address] [place], [place] Urea nitrogen [Mass/Vol] 9 mg/dL Normal 7-20 [facility] Comment on above: Performed By: #### B MP3, HEMDF #### [facility] [address] [place], [place] Anion gap [Moles/Vol] 7 Normal [facility] Comment on above: Performed By: #### B MP3, HEMDF #### [facility] [address] [place], [place] CO2 [Moles/Vol] 31 mmol/L High 22-30 [facility] Comment on above: Performed By: #### B MP3, HEMDF #### [facility] [address] [place], [place] Creatinine [Mass/Vol] 0.49 mg/dL Low 0.52-1.25 [facility] Comment on above: Performed By: #### B MP3, HEMDF #### [place] [address] [place], [place] GFR/1.73 sq M predicted among blacks MDRD (S/P/Bld) [Vol rate/Area] mL/min/{1.73_m2} Normal >60 [facility] Comment on above: Performed By: #### B MP3, HEMDF #### [place] [address] [place], [place] GFR/1.73 sq M predicted among non-blacks MDRD (S/P/Bld) [Vol rate/Area] mL/min/{1.73_m2} Normal >60 [facility] Comment on above: Result Comment: KDIG O [...] B MP3, HEMDF #### [facility] [address] [place], [place] Potassium [Moles/Vol] 2.9 mmol/L Low 3.5-5.1 [facility] Comment on above: Performed By: #### B MP3, HEMDF #### [address] [place] Chloride [Moles/Vol] 103 mmol/L Normal 98-107 [facility] Comment on above: Performed By: #### B MP3, HEMDF #### [facility] [address] [place], [place] Sodium [Moles/Vol] 140 mmol/L Normal 135-145 [facility] Comment on above: Performed By: #### B MP3, HEMDF #### [facility] [address] [place], [place] CR Chest Portableon 11-12-19 20 CR Chest Portable Patient Name: GONZALO DELUCA Diagnostic Radiology Exam Date/Time 11/12/2019 20:13:01 EDT Exam CR Chest Portable Ordering Physician NADEEM CASEY JENNIFER L. Accession Number [id number] CPT4 Codes 53397 () Reason For Exam cough and fever [...] Time: 11/12/2019 8:15 Normal [facility] Hemogram w/ Autodiffon 11-11 Abs Baso Cnt 0.1 10*3/uL Normal 0.0-0.2 [facility] Comment on above: Performed By: #### B MP3, HEMDF #### [facility] [address] [place], [place] Abs Neutrophile Cnt 12.0 10*3/uL High 1.8-7.0 [facility] Comment on above: Performed By: #### B MP3, HEMDF #### [facility] [address] [place], [place] Basophils/100 WBC (Bld) 0.4 % Normal 0.0-2.0 S [facility] Comment on above: Performed By: #### B MP3, HEMDF #### [facility] [address] [place], [place] Eosinophils (Bld) [#/Vol] 0.2 10*3/uL Normal 0.0-0.5 [facility] Comment on above: Performed By: #### B MP3, HEMDF #### [facility] [address] [place], [place] Eosinophils/100 WBC (Bld) 1.6 % Normal 1.0-6.0 [facility] Comment on above: Performed By: #### B MP3, HEMDF #### [place] [address] [address] [place], [place] Erythrocyte distribution width (RBC) [Ratio] 14.2 % Normal 11.5-14.5 [facility] Comment on above: Performed By: #### B MP3, HEMDF #### [place] [address] [address] [place], [place] Granulocytes/100 WBC (Bld) 81.3 % High 40.0-80.0 [facility] Comment on above: Performed By: #### B MP3, HEMDF #### [facility] [address] [place], [place] Hematocrit (Bld) [Volume fraction] 38.0 % Normal 35.0-47.0 [facility] Comment on above: Performed By: #### B MP3, HEMDF #### [facility] [address] [place], [place] Hemoglobin (Bld) [Mass/Vol] 12.9 g/dL Normal 11.7-16.0 [facility] Comment on above: Performed By: #### B MP3, HEMDF #### [place] [address] [address] [place], [place] Lymphocytes (Bld) [#/Vol] 1.4 10*3/uL Normal 1.0-4.3 [facility] Comment on above: Performed By: #### B MP3, HEMDF #### [place] [address] [address] [place], [place] Lymphocytes/100 WBC (Bld) 9.3 % Low 20.0-40.0 [facility] Comment on above: Performed By: #### B MP3, HEMDF #### [place] [address] [address] [place], [place] MCH (RBC) [Entitic mass] 32.0 pg Normal 26.0-34.0 [facility] Comment on above: Performed By: #### B MP3, HEMDF #### [place] [address] [place], [place] MCHC (RBC) [Mass/Vol] 34.0 % Normal 32.0-36.0 [facility] Comment on above: Performed By: #### B MP3, HEMDF #### [place] [address] [address] [place], [place] MCV (RBC) [Entitic vol] 94.1 fL Normal 79.0-98.0 S [facility] Comment on above: Performed By: #### B MP3, HEMDF #### [place] [address] [place], [place] Monocytes (Bld) [#/Vol] 1.1 10*3/uL High 0.0-0.8 [facility] Comment on above: Performed By: #### B MP3, HEMDF #### [place] [address] [address] [place], [place] Monocytes/100 WBC (Bld) 7.4 % Normal 2.0-10.0 S [facility] Comment on above: Performed By: #### B MP3, HEMDF #### [place] [address] [address] [place], [place] Platelet mean volume (Bld) [Entitic vol] 6.8 fL Low 7.4-10.4 [facility] Comment on above: Performed By: #### B MP3, HEMDF #### [place] [address] [address] [place], [place] Platelets (Bld) [#/Vol] 526 10*3/uL High 140-440 [facility] Comment on above: Performed By: #### B MP3, HEMDF #### [facility] [email or web address] [facility] [address] [place], [place] RBC (Bld) [#/Vol] 4.03 10*6/uL Normal 3.80-5.20 [facility] Comment on above: Performed By: #### B MP3, HEMDF #### [facility] [email or web address] [facility] [address] [place], [place] WBC (Bld) [#/Vol] 14.8 10*3/uL High 3.6-10.7 [facility] Comment on above: Performed By: #### B MP3, HEMDF #### [facility] [email or web address] [facility] [address] [place], [place] VL Venous Duplex US Lower Ex t Righton 11-10-2019 VL Venous Duplex US Lower Ext Right Patient Name: GONZALO DELUCA Ultrasound Exam Date/Time 11/10/2019 18:25:00 EDT Exam VL Venous Duplex US Lower Ext Right Ordering Physician [id number] -TANI JOSEPH Accession Number [id number] CPT4 Codes 19735 () Reason For Exam Other specified soft tissue disorders Report [facility] ----- Right Lower Extremity Venous Duplex Report Ordering Physician: Tani Joseph Transportation Worker: Luda Alonso Interpreting Physician: Ramses Mcgrath MD ----- Location: [facility] Emergency Dept [facility] [place] ----- Indications: [...] supine position. Images were obtained using a Pump! i700 URXio vascular ultrasound machine. ----- Venous flow and [...] 11/12/2019 8:11 am Signed by: RAMSES MCGRATH [facility] Op Noteon 11-06-2019 Op Note PATIENT: MAHAMED DELUCA ADMISSION DATE: 11/06/2019 SURGERY DATE: 11/06/2019 DATE OF : 1955 AGE: 63 ADMITTING PHYSICIAN: Ziyad Menendez MD ATTENDING PHYSICIAN: Ziyad Menendez MD DICTATING PHYSICIAN: Ziyad Menendez MD OPERATIVE RECORD Procedure: ABDOMINAL RADICAL HYSTERECTOMY WITH BSO AND PELVIC LYMPH NODE DISSECTION. Preoperative Diagnosis: Cervical cancer stage IB2. Postoperative Diagnosis: Cervical cancer stage IB2. Anesthesia: General. Cinetechnician : Dr. Beth. Description of Findings: No [...] cuff was closed using interrupted 0 Vicryl [id number]. The abdomen and pelvis was then copiously [...] EBL about 250 cc. Diskriter Job ID: [id number] Ziyad Menendez MD DOD:11/06/2019 10:13 A /geraldine DOT:11/06/2019 10:45 A Job Number: [id number] Document Number: [id number] cc: Ziyad Menendez MD [address] [facility] [address] Angle Case MD [address] [address] Normal [facility] Surgical Pathologyon 020 Surgical Pathology [id number] [facility] PATHOLOGY AND LABORATORY MEDICINE [address] [place] [id number] FINAL SURGICAL PATHOLOGY REPORT NAME: GONZALO EDLUCA : 1955 63 Y F BILLING NO.: [id number] LOCATION: [facility] 1706 PROCEDURE 11/06/2019 DATE: SURGEON: ZIYAD MENENDEZ [...] (pN): pN1 FIGO STAGE FIGO Stage: IIIC1 RIM BUSTER TUMOR BLOCK(S): A2, A3 HCK/HCK Signature> ANSLEY [...] No papillations or excrescences are identified. Multiple personnel representative sections are submitted. The left fallopian [...] masses or lesions are grossly identified. Multiple personnel representative sections are submitted. Cassette Summary: 1 - 4 is ectocervix with vaginal cuff margin from 6 o'clock to 9 o'clock, entirely submitted; 5 is personnel representative 9 o'clock to 12 o'clock; 6 - 8 is 3 o'clock to 6 o'clock, entirely submitted; 9 is personnel representative 12 o'clock to 3 o'clock; 10 [...] lower uterine segment; 20 and 21 is personnel representative right parametrium; 22 is personnel representative left parametrium; 23 is left ovary; [...] specimen is submitted into 13. [facility] Disclaimer: The following statement applies to all immunohistochemistry, in situ hybridization, molecular studies, and immunofluorescence testing. The use of one or more reagents in the above tests is regulated as an analyte specific reagent (ASR). These tests were developed and their performance characteristics determined by the clinical laboratories of [facility]. They have not been cleared by the [...] negativity on decalcified specimens. Professional Performing Location: [address] [address]. DEPARTMENT OF PATHOLOGY AND LABORATORY MEDICINE [place], [place] [address] Normal [facility] TS GELon 11-05-2019 TS GEL ABO Group: A Rh, Gel: POS Antibody Screen Gel: NEG Normal [facility] Comment on above: Performed By: #### T SGL ####[place] [address] TYPE AND SCREENon 11-05-2019 Sodium [Moles/Vol] A [facility] [email or web address] [place], [place] Sodium [Moles/Vol] Positive [facility] [place], [place] Sodium [Moles/Vol] Negative [facility], [place] Test Performed by [id number] [place] [address], [place] CNPNon 10-31-2019 CNPN Telephone (MOLEFV) RAUDELSUMEETGONZALO LEBLANC ([id number]) 1955 F Date Time Provider Department 10/31/19 [...] Encounter Status:Closed by AMELIE ZAYAS on 10/31/19 [facility] PROGRESSon 10-31-2019 PROGRESS HNO ID: [id number] Author: Ankit Cook Service: ? Author Type: [...] stains were performed and evaluated at the [facility] using block B1. 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 ?P53 shows wild type expression. ?ER shows moderate expression in 30% of tumor cells. ?AR is negative. ?An RNA in situ hybridization [...] days 11/06/19 radical ARIANA-BSO-LND (Dr Ziyad Menendez, [facility]) 11/09/19 ED Visit (OSH) MRI [...] yo T1b1 N1a SCC cervix Staged at [facility] 11/06/2019 Hx COPD, 3L suppl O2 at home Possible TIA 07/2019 CAD abd stress 2017; possible NSTEMI 2017 (per pt) Mother berast CA Sister breast CA [place] ER eval 10/21/[address] notable for old T5 compressions fx PLAN: MRI and PET CT completed at [facility] S/p staging surgery w Dr. Menendez 11/06/201904/01 Pelvic nodes positive, Ao nodes not sampled 10mm stromal invasion Planned for adjuvant chemoRT at [facility] Ankit Cook MD 5min spent counseling the pateint by telephone Normal [facility] [place] Basic Metabolic Panelon 08- Anion gap [Moles/Vol] 6 mmol/L [place], [place] Calcium [Mass/Vol] 9.7 mg/dL 8.4 - 10. 4 mg/dL [place] Chloride [Moles/Vol] 102 mmol/L 98 - 10 7 mmol/L [place] CO2 [Moles/Vol] 32 mmol/L High 22 - 30 mmol/L [place] Creatinine [Mass/Vol] 0.57 mg/dL 0.52 - 1.25 mg/dL [place] EGFR IF NonAfrican Citizen Of [place] >90.0 >60 mL/min [place] Comment on above: KDIGO guidelines pro [...] MDRD (S/P/Bld) [Vol rate/Area] mL/min/{1.73_m2} >60 mL/min [place] Glucose [Mass/Vol] 111 mg/dL High 70 - 100 mg/dL [place] Potassium [Moles/Vol] 4.1 mmol/L 3.5 - 5.1 mmol/L [place] Sodium [Moles/Vol] 140 mmol/L 135 - 145 mmol/L [place] Urea nitrogen [Mass/Vol] 20 mg/dL 7 - 20 mg/d L [facility] [place], [place] CT ABDOMEN PELVIS W CONTRAST on 10-27-2019 Real, [facility] Incoming Radiology Results From [facility] - 10/27/2019 5:10 PM EDT Patient Name: GONZALO DELUCA ---CT--- Exam Date/Time 10/27/2019 16:53:[address] Abdomen/Pelvis w/ IV Contrast (IV Onl Ordering Physician MD JAMIE, ANKIT French Accession Number [id number] CPT4 Codes 84091 (CT Abdomen/Pelvis w/ IV Contrast (IV Onl), Q9967 (CT ISOVUE 370MG/ML&[id number]&M L&1) Reason For Exam RUQ/RIGHT flank pain, [...] R Transcribed Date and Time: 10/27/2019 5:09 [place], [place] Patient Name: GONZALO DELUCA ---CT--- Exam Date/Time 10/27/2019 16:53:[address] Abdomen/Pelvis w/ IV Contrast (IV Onl Ordering Physician MD JAMIE, ANKIT French Accession Number [id number] CPT4 Codes 79071 (CT Abdomen/Pelvis w/ IV Contrast (IV Onl), Q9967 (CT ISOVUE 370MG/ML&[id number]&M L&1) Reason For Exam RUQ/RIGHT flank pain, [...] R Transcribed Date and Time: 10/27/2019 5:09 [place], [place] Hemogram (CBC) w/Auto Diffon 10-27-2019 Absolute Baso # 0.1 10*3/uL 0 - 0.2 10*3/uL [place] Absolute Neut # 9.8 10*3/uL High 1.8 - 7 10*3/uL [place] Basophils/100 WBC (Bld) 0.4 % 0 - 2 % [place] Eosinophils (Bld) [#/Vol] 0.5 10*3/uL 0 - 0.5 10*3/uL [place] Eosinophils/100 WBC (Bld) 4.0 % 1 - 6 % [place] Erythrocyte distribution width (RBC) [Ratio] 14.4 % 11.5 - 14.5 % [place] Granulocytes/100 WBC (Bld) 76.6 % 40 - 80 % [place] Hematocrit (Bld) [Volume fraction] 41.9 % 35 - 47 % [place] Hemoglobin (Bld) [Mass/Vol] 13.7 g/dL 11.7 - 16 g/dL [place] Lymphocytes (Bld) [#/Vol] 1.5 10*3/uL 1 - 4.3 10*3/uL [place] Lymphocytes/100 WBC (Bld) 12.1 % Low 20 - 40 % [place] MCH (RBC) [Entitic mass] 30.3 pg 26 - 34 pg [place] MCHC (RBC) [Mass/Vol] 32.6 % 32 - 36 % [place] MCV (RBC) [Entitic vol] 93.1 fL 79 - 98 fL [place], [place] Monocytes (Bld) [#/Vol] 0.9 10*3/uL High 0 - 0.8 10*3/uL [place] Monocytes/100 WBC (Bld) 6.9 % 2 - 10 % [place] Platelet mean volume (Bld) [Entitic vol] 7.1 fL Low 7.4 - 10.4 fL [place] Platelets (Bld) [#/Vol] 413 10*3/uL 140 - 440 10*3/uL [place] RBC (Bld) [#/Vol] 4.50 10*6/uL 3.8 - 5.2 10*6/uL [place] WBC (Bld) [#/Vol] 12.8 10*3/uL High 3.6 - 10.7 10*3/uL [place] Hepatic Function Panelon Albumin [Mass/Vol] 4.2 g/dL 3.5 - 5 g/dL [place] ALP [Catalytic activity/Vol] 116 U/L 38 - 126 U/L [place] ALT [Catalytic activity/Vol] 42 U/L High 0 - 34 U/L [place] Comment on above: The ALT test is perf ormed by an updated assay method. Please note that the reference intervals have been changed and are now sex specific. AST [Catalytic activity/Vol] 47 U/L High 15 - 46 U/L [place] Bilirubin Ql (U) 0.4 mg/dL 0.2 - 1.3 mg/dL [place] Bilirubin.direct [Mass/Vol] 0.0 mg/dL 0 - 0.3 mg/dL [place] Protein [Mass/Vol] 7.5 g/dL 6.3 - 8.2 g/dL [place] Lipaseon 10-27-2019 Lipase [Catalytic activity/Vol] 72 U/L 23 - 300 U/L [place] Otheron 10-27-2019 Interpretation and review of laboratory results Abnormal [place] Test Performed by [facility], [address] [place], [place], [place] [address] [place] CT LUMBAR SPINE WO CONTRASTo n 10-21-2019 Patient Name: GONZALO DELUCA ---CT--- Exam Date/Time 10/21/2019 21:54:[address] Spine Lumbar w/o Contrast Ordering Physician DO OTTO DAVID J Accession Number [id number] CPT4 Codes 57350 () Reason For Exam Acute onset T [...] Date and Time: 10/21/2019 10:26 [facility], [place] Real, [facility] Incoming Radiology Results From Replaced By [facility] - 10/21/2019 10:26 PM EDT Patient Name: GONZALO DELUCA ---CT--- Exam Date/Time 10/21/2019 21:54:[address] Spine Lumbar w/o Contrast Ordering Physician DO OTTO DAVID J Accession Number [id number] CPT4 Codes 82846 () Reason For Exam Acute onset T [...] WENDELL Transcribed Date and Time: 10/21/2019 10:26 [place] CT THORACIC SPINE WO CONTRAS Ton 10-21-2019 Patient Name: GONZALO DELUCA ---CT--- Exam Date/Time 10/21/2019 20:45:[address] Spine Thoracic w/o Contrast Ordering Physician DO OTTO DAVID J Accession Number [id number] CPT4 Codes 01341 () Reason For Exam Acute onset T [...] WENDELL Transcribed Date and Time: 10/21/2019 10:26 [place], [facility] Incoming Radiology [facility] - 10/21/2019 10:26 PM EDT Patient Name: GONZALO DELUCA ---CT--- Exam Date/Time 10/21/2019 20:45:[address] Spine Thoracic w/o Contrast Ordering Physician DO OTTO DAVID J Accession Number [id number] CPT4 Codes 22193 () Reason For Exam Acute onset T [...] Date and Time: 10/21/2019 10:26 [facility] [place] PROGRESSon 10-19-2019 PROGRESS HNO ID: [id number] Author: Ankit Cook Service: ? Author Type: [...] stains were performed and evaluated at the [facility] using block B1. 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 ?P53 shows wild type expression. ?ER shows moderate expression in 30% of tumor cells. ?AR is negative. ?An RNA in situ hybridization [...] 9min spent counseling the patient by telephone. [facility] ALLIED HEALTHon 09-27-2019 ALLIED HEALTH HNO ID: [id number] Author: ALIYA Choi (Ct) Service: Radiology Author Type: Clinical Land Management Forester Type: Allied Health Filed: 09/27/2019 9:15 AM [...] ALIYA Choi September 27, 2019 9:14 AM [facility] US FEMALE PELVIS TRANSABD LT Don 09-27-2019 US FEMALE PELVIS TRANSABD LTD * * *Final Report* * * DATE OF EXAM: Sep 27 2019 8:58AM MARCO 1059 - US FEMALE PELVIS TRANSABD LTD / PROCEDURE REASON: N95.0-Mbwp-yabbpyeiga bleeding * * * * Physician Interpretation [...] uterine segment. Pelvic MRI may be helpful. Civil Clerk: PSCB Transcribe Date/Time: Sep 27 2019 5:07P Dictated by : SAAD ESQUIVEL MD This examination was interpreted and the report reviewed and electronically signed by: SAAD ESQUIVEL MD on Sep 27 2019 5:14PM EST [id number] [facility] FEMALE PELVIS TRANSVAGon 09-27-2019 US FEMALE PELVIS TRANSVAG * * *Final Report* * * DATE OF EXAM: Sep 27 2019 8:58AM U 1060 - US FEMALE PELVIS TRANSVAG / PROCEDURE REASON: N95.3-Ozqu-sxfilopgbi bleeding * * * * Physician Interpretation [...] uterine segment. Pelvic MRI may be helpful. Civil Clerk: ANGEL Transcribe Date/Time: Sep 27 2019 5:07P Dictated by : SAAD ESQUIVEL MD This examination was interpreted and the report reviewed and electronically signed by: SAAD ESQUIVEL MD on Sep 27 2019 5:14PM EST [id number] Normal [facility] Basic Metabolic Panelon 05- Anion gap [Moles/Vol] 8 mmol/L [place] Calcium [Mass/Vol] 8.7 mg/dL 8.4 - 10. 4 mg/dL [place] Chloride [Moles/Vol] 105 mmol/L 98 - 10 7 mmol/L [place] CO2 [Moles/Vol] 26 mmol/L 22 - 30 mmol/L [place] Creatinine [Mass/Vol] 0.5 mg/dL Low 0.52 - 1.25 mg/dL [place] EGFR IF NonAfrican Citizen Of [place] >90.0 >60 mL/min [place] Comment on above: KDIGO guidelines pro [...] MDRD (S/P/Bld) [Vol rate/Area] mL/min/{1.73_m2} >60 mL/min [place] Glucose [Mass/Vol] 145 mg/dL High 70 - 100 mg/dL [place], [place] Interpretation and review of laboratory results Abnormal [place] Potassium [Moles/Vol] 4.0 mmol/L 3.5 - 5.1 mmol/L [place] Sodium [Moles/Vol] 139 mmol/L 135 - 145 mmol/L [place] Urea nitrogen [Mass/Vol] 17 mg/dL 7 - 20 mg/d L [place] Test Performed by [facility] [email or web address] [facility], [address] [place], [place], [place] [address] [place] [address] CBC Auto Differentialon 05-1 Absolute Baso # 0.0 10*3/uL 0 - 0.2 10*3/uL [place] Absolute Neut # 13.6 10*3/uL High 1.8 - 7 10*3/uL [place] Basophils/100 WBC (Bld) 0.2 % 0 - 2 % [place] Eosinophils (Bld) [#/Vol] 0.0 10*3/uL 0 - 0.5 10*3/uL [place] Eosinophils/100 WBC (Bld) 0.0 % Low 1 - 6 % [place] Erythrocyte distribution width (RBC) [Ratio] 13.8 % 11.5 - 14.5 % [place] Granulocytes/100 WBC (Bld) 92.2 % High 40 - 80 % [place] Hematocrit (Bld) [Volume fraction] 33.9 % Low 35 - 47 % [place] Hemoglobin (Bld) [Mass/Vol] 11.1 g/dL Low 11.7 - 16 g/dL [place] Interpretation and review of laboratory results Abnormal [place] Lymphocytes (Bld) [#/Vol] 0.6 10*3/uL Low 1 - 4.3 10*3/uL [place] Lymphocytes/100 WBC (Bld) 3.9 % Low 20 - 40 % [place] MCH (RBC) [Entitic mass] 31.0 pg 26 - 34 pg [place] MCHC (RBC) [Mass/Vol] 32.8 % 32 - 36 % [place] MCV (RBC) [Entitic vol] 94.6 fL 79 - 98 fL [place], [place] Monocytes (Bld) [#/Vol] 0.5 10*3/uL 0 - 0.8 10*3/uL [place], [place] Monocytes/100 WBC (Bld) 3.7 % 2 - 10 % [place] Platelet mean volume (Bld) [Entitic vol] 7.5 fL 7.4 - 10.4 fL [place], [place] Platelets (Bld) [#/Vol] 208 10*3/uL 140 - 440 10*3/uL [place] RBC (Bld) [#/Vol] 3.58 10*6/uL Low 3.8 - 5.2 10*6/uL [place] WBC (Bld) [#/Vol] 14.7 10*3/uL High 3.6 - 10.7 10*3/uL [place] Test Performed by [facility] [email or web address] [facility], [address] [facility] [address], [place] [address] [place] [address] Basic Metabolic Panelon 05-1 Anion gap [Moles/Vol] 8 mmol/L [place] Calcium [Mass/Vol] 8.2 mg/dL Low 8.4 - 10. 4 mg/dL [place] Chloride [Moles/Vol] 99 mmol/L 98 - 10 7 mmol/L [place] CO2 [Moles/Vol] 28 mmol/L 22 - 30 mmol/L [place] Creatinine [Mass/Vol] 0.49 mg/dL Low 0.52 - 1.25 mg/dL [place] EGFR IF NonAfrican Citizen Of [place] >90.0 >60 mL/min [place] Comment on above: KDIGO guidelines pro [...] MDRD (S/P/Bld) [Vol rate/Area] mL/min/{1.73_m2} >60 mL/min [place] Glucose [Mass/Vol] 185 mg/dL High 70 - 100 mg/dL [place] Interpretation and review of laboratory results Abnormal [place] Potassium [Moles/Vol] 3.7 mmol/L 3.5 - 5.1 mmol/L [place] Sodium [Moles/Vol] 134 mmol/L Low 135 - 145 mmol/L [place] Urea nitrogen [Mass/Vol] 11 mg/dL 7 - 20 mg/d L [place] CBC Auto Differentialon 05-1 Absolute Baso # 0.0 10*3/uL 0 - 0.2 10*3/uL [place] Absolute Neut # 10.2 10*3/uL High 1.8 - 7 10*3/uL [place] Basophils/100 WBC (Bld) 0.0 % 0 - 2 % [place] Eosinophils (Bld) [#/Vol] 0.0 10*3/uL 0 - 0.5 10*3/uL [place] Eosinophils/100 WBC (Bld) 0.0 % Low 1 - 6 % [place] Erythrocyte distribution width (RBC) [Ratio] 14.0 % 11.5 - 14.5 % [place] Granulocytes/100 WBC (Bld) 94.9 % High 40 - 80 % [place] Hematocrit (Bld) [Volume fraction] 35.8 % 35 - 47 % [place] Hemoglobin (Bld) [Mass/Vol] 11.9 g/dL 11.7 - 16 g/dL [place] Interpretation and review of laboratory results Abnormal [place] Lymphocytes (Bld) [#/Vol] 0.3 10*3/uL Low 1 - 4.3 10*3/uL [place] Lymphocytes/100 WBC (Bld) 3.1 % Low 20 - 40 % [place] MCH (RBC) [Entitic mass] 31.3 pg 26 - 34 pg [place] MCHC (RBC) [Mass/Vol] 33.1 % 32 - 36 % [place] MCV (RBC) [Entitic vol] 94.5 fL 79 - 98 fL [place] Monocytes (Bld) [#/Vol] 0.2 10*3/uL 0 - 0.8 10*3/uL [place], [place] Monocytes/100 WBC (Bld) 2.0 % 2 - 10 % [place] Platelet mean volume (Bld) [Entitic vol] 7.0 fL Low 7.4 - 10.4 fL [place] Platelets (Bld) [#/Vol] 180 10*3/uL 140 - 440 10*3/uL [place] RBC (Bld) [#/Vol] 3.79 10*6/uL Low 3.8 - 5.2 10*6/uL [place] WBC (Bld) [#/Vol] 10.8 10*3/uL High 3.6 - 10.7 10*3/uL [place] Test Performed by [facility], [address] [place], [place], [place] [id number] [place] [address] Gram Stainon 08-03-2019 INR Coag (Bld) [Relative time] Moderate epithelial cells/lpf. Many polymorphonuclear cells/lpf. Moderate gram positive cocci Rare gram negative bacilli. Few gram positive bacilli. Few yeast. [place] Test Performed by [facility], [address] [place] [id number] Specimen Source Comment:Sputum Expectorated [place] Legionella Antigen, Urineon 08-03-2019 LEGIONELLA ANTIGEN Legionella antigen N OT DETECTED. [place] Magnesiumon 08-03-2019 Magnesium [Mass/Vol] 2.1 mg/dL 1.6 - 2 .3 mg/dL [place] Otheron 08-03-2019 Test Performed by [facility], [address], [place], [place] [address] [place] Test Performed by [facility], [address] [place] [address] Specimen Source Comment:Urine, clean catch [place] Respiratory Virus PCR Panelo n 08-03-2019 [...] pertussis, Bordetella parapertussis, Chlamydia pneumoniae, Mycoplasma pneumoniae [place] Test Performed by [facility], [address] [place] [id number] Specimen Source Comment:Nasopharyngeal Swab [place] STREP PNEUMONIAE ANTIGENon 0 08-03-2019 STREP PNEUMONIAE ANTIGEN, URINE Strep pneumo antigen NOT DETECTED. [place] Urinalysison 08-03-2019 Appearance (U) Clear Clear NA [place] Comment on above: . Bilirubin Urine Negative Negative mg/dL [place] Comment on above: . Color (U) Yellow Lt. Yellow NA [place] Comment on above: . Glucose, Ur Normal Normal (<70) mg/dL [place] Comment on above: . Interpretation and review of laboratory results Abnormal [place] Ketones Ql (U) Negative Negative mg/dL [place] Comment on above: . LEUKOCYTES, UA Negative Negative Sandra/uL [place] Comment on above: . Mucous Threads Few Negative /[LPF] [place] Comment on above: . Nitrite, Urine Negative Negative NA [place] Comment on above: . Occult Blood,Urine Negative Negative mg/dL [place] Comment on above: . pH (U) 6.5 [pH] [place] Comment on above: . Protein (U) [Mass/Vol] 10 mg/dL Abnormal Negative [place] Comment on above: . RBC (U) [#/Vol] 0-2 0 - 2 /[HPF] [place] Comment on above: . Specific [place], Urine 1.014 [place] Comment on above: . Squam Epithel, UA 0-2 3 - 5 /[HPF] [place] Comment on above: . Urobilinogen, Urine 2 mg/dL Abnormal Normal (0-1) [place] Comment on above: . WBC, UA 0-2 0 - 5 /[HPF] [place] Comment on above: . Test [facility], [address] [place], [place] [address] [place] Basic Metabolic Panelon 05-1 Anion gap [Moles/Vol] 11 mmol/L [place] Calcium [Mass/Vol] 8.7 mg/dL 8.4 - 10. 4 mg/dL [place] Chloride [Moles/Vol] 101 mmol/L 98 - 10 7 mmol/L [place] CO2 [Moles/Vol] 26 mmol/L 22 - 30 mmol/L [place] Creatinine [Mass/Vol] 0.61 mg/dL 0.52 - 1.25 mg/dL [place] EGFR IF NonAfrican Citizen Of [place] >90.0 >60 mL/min [place] Comment on above: KDIGO guidelines pro [...] MDRD (S/P/Bld) [Vol rate/Area] mL/min/{1.73_m2} >60 mL/min [place] Glucose [Mass/Vol] 118 mg/dL High 70 - 100 mg/dL [place] Interpretation and review of laboratory results Abnormal [place] Potassium [Moles/Vol] 3.5 mmol/L 3.5 - 5.1 mmol/L [place] Sodium [Moles/Vol] 139 mmol/L 135 - 145 mmol/L [place], [place] Urea nitrogen [Mass/Vol] 9 mg/dL 7 - 20 mg/d L [place], [place] Test Performed by [facility], [address], [place] [id number] [place] [address] [employer] [place], [place] COVID-19on 08-02-2019 SARS-CoV-2 Not Detected Expected Result: Not Detected _ Real-time, RT-PCR performed on the [facility] by the [facility]. Negative results do not preclude SARS-CoV-2 infection and should not be used as the sole basis for treatment or other patient management decisions. This assay was developed by [employer] and distributed under an Emergency Use Authorization (EUA) granted by the FDA for the qualitative detection of SARS-CoV-2 nucleic acid. [employer] [place] Test Performed by [facility], [address] [place] [id number] Specimen Source Comment:Nasopharyngeal Swab [place], [place] Hemogram (CBC)on 08-02-2019 Erythrocyte distribution width (RBC) [Ratio] 14.1 % 11.5 - 14.5 % [place] Hematocrit (Bld) [Volume fraction] 37.5 % 35 - 47 % [place] Hemoglobin (Bld) [Mass/Vol] 12.5 g/dL 11.7 - 16 g/dL [place] Interpretation and review of laboratory results Abnormal [place] MCH (RBC) [Entitic mass] 31.5 pg 26 - 34 pg [place] MCHC (RBC) [Mass/Vol] 33.4 % 32 - 36 % [place] MCV (RBC) [Entitic vol] 94.3 fL 79 - 98 fL [place], [place] Platelet mean volume (Bld) [Entitic vol] 7.6 fL 7.4 - 10.4 fL [place] Platelets (Bld) [#/Vol] 196 10*3/uL 140 - 440 10*3/uL [place] RBC (Bld) [#/Vol] 3.98 10*6/uL 3.8 - 5.2 10*6/uL [place] WBC (Bld) [#/Vol] 12.6 10*3/uL High 3.6 - 10.7 10*3/uL [place] Test Performed by [facility], [address] JANNY [address] Lactic Acid, Plasmaon 2019 Interpretation and review of laboratory results Abnormal [place] Lactate [Moles/Vol] 0.6 mmol/L Low 0.7 - 2 mmol/L [place] Test Performed by [facility], [address] JANNY [address] Troponin x1on 08-02-2019 Troponin I.cardiac [Mass/Vol] ng/mL 0 - 0.034 ng/mL [place] Comment on above: . Test Performed by [facility], [address], [address] [facility] [place], [place] XR CHEST PORTABLEon 08-02-19 Real, [facility] Results From [facility] - 08/02/2019 6:51 PM EDT Patient Name: GONZALO DELUCA ---Diagnostic Radiology--- Exam Date/Time 08/02/2019 18:40:13 EDT Exam CR Chest Portable Ordering Physician HeatherMary ENIDSIENAJOANIE Accession Number [id number] CPT4 Codes 81272 () Reason For Exam SOB, cough Report [...] Osseous degenerative changes. Report Dictated on Workstation: [facility] --- Final --- Dictating Physician: MD CAMACHO BRIAN Signed Date and Time: 08/02/2019 6:49 pm Signed by: MD CAMACHO BRIAN Transcribed Date and Time: 08/02/2019 6:50 [place] Patient Name: GONZALO DELUCA ---Diagnostic Radiology--- Exam Date/Time 08/02/2019 18:40:13 EDT Exam CR Chest Portable Ordering Physician JOANIE ALMONTE Accession Number [id number] CPT4 Codes 17590 () Reason For Exam SOB, cough Report [...] Osseous degenerative changes. Report Dictated on Workstation: [facility] --- Final --- Dictating Physician: MD CAMACHO BRIAN Signed Date and Time: 08/02/2019 6:49 pm Signed by: MD CAMACHO BRIAN Transcribed Date and Time: 08/02/2019 6:50 [facility], [place] Vital Signs Date Time Vital Sign Value Performing Clinician Facility 01-22-2025 20:32-0500 Heart rate 93 /min Freddy Linder MD Work Phone: [facility] 01-22-2025 20:32-0500 Respiratory rate 18 /min Freddy Linder MD Work Phone: [facility] 01-22-2025 20:32-0500 SaO2% (BldA) [Mass fraction] 94 % Freddy Linder MD Work Phone: [facility] 01-22-2025 19:11-0500 Body temperature 99 [degF] Freddy Linder MD Work Phone: [facility] 01-22-2025 19:11-0500 Diastolic blood pressure 91 mm[Hg] Freddy Linder MD Work Phone: [email or web address] 01-22-2025 19:11-0500 Systolic blood pressure 165 mm[Hg] Freddy Linder MD Work Phone: [email or web address] 01-22-2025 05:46-0500 Body mass index (BMI) [Ratio] 20.29 kg/m2 Freddy Linder MD Work Phone: [email or web address] 01-22-2025 05:46-0500 Body weight 53.62 kg Freddy Linder MD Work Phone: [email or web address] 01-21-2025 13:40-0500 Body height 162.6 cm Freddy Linder MD Work Phone: [email or web address] 01-14-2025 07:06-0400 SaO2% (BldA) [Mass fraction] 94.7 % Freddy Linder MD Work Phone: [email or web address] 08-20-2024 10:28-0400 Body height 162.6 cm Elyssa Tesfaye NP Work Phone: [email or web address] 08-20-2024 10:28-0400 Body mass index (BMI) [Ratio] 16 kg/m2 Elyssa Tesfaye NP Work Phone: [facility] 08-20-2024 10:28-0400 Body temperature 96.8 [degF] Elyssa Moservik SENIOR C SOFTWARE DEVELOPER Work Phone: [email or web address] 08-20-2024 10:28-0400 Body weight 42.27 kg Elyssa Tesfaye SENIOR C SOFTWARE DEVELOPER Work Phone: [email or web address] 08-20-2024 10:28-0400 Diastolic blood pressure 67 mm[Hg] Elyssa Ketvik SENIOR C SOFTWARE DEVELOPER Work Phone: [email or web address] 08-20-2024 10:28-0400 Heart rate 92 /min Elyssa Moservik SENIOR C SOFTWARE DEVELOPER Work Phone: [email or web address] 08-20-2024 10:28-0400 SaO2% (BldA) [Mass fraction] 91 % Elyssa Moservik SENIOR C SOFTWARE DEVELOPER Work Phone: [email or web address] Comment on above: 4Lp 08-20-2024 10:28-0400 Systolic blood pressure 105 mm[Hg] Elyssa Moservik SENIOR C SOFTWARE DEVELOPER Work Phone: [email or web address] 08-08-2024 13:22-0400 Heart rate 88 /min Luis E Mudrakola DO Work Phone: [facility] 08-08-2024 13:22-0400 Respiratory rate 24 /min Luis E Mudrakola DO Work Phone: [email or web address] 08-08-2024 13:22-0400 SaO2% (BldA) [Mass fraction] 92 % Luis E Mudrakola DO Work Phone: [email or web address] 08-08-2024 08:14-0400 Body temperature 97.2 [degF] Luis E Mudrakola DO Work Phone: [facility] 08-08-2024 08:14-0400 Diastolic blood pressure 64 mm[Hg] Luis E Mudrakola DO Work Phone: [facility] 08-08-2024 08:14-0400 Systolic blood pressure 99 mm[Hg] Luis E Mudrakola DO Work Phone: [facility] 08-06-2024 14:25-0400 Body height 162.6 cm Luis E Keating DO Work Phone: [facility] 08-03-2024 21:01-0400 Body mass index (BMI) [Ratio] 15.29 kg/m2 Luis E Glaserla DO Work Phone: [email or web address] 08-03-2024 21:01-0400 Body weight 40.4 kg Luis E Keating DO Work Phone: [facility] 07-30-2024 14:53-0400 Body height 164.1 cm Herminia Case MD Work Phone: [facility] 07-30-2024 14:53-0400 Body mass index (BMI) [Ratio] 15.08 kg/m2 Herminia Case MD Work Phone: [facility] 07-30-2024 14:53-0400 Body temperature 98.4 [degF] Herminia Case MD Work Phone: [facility] 07-30-2024 14:53-0400 Body weight 40.6 kg Herminia Case MD Work Phone: [facility] 07-30-2024 14:53-0400 Diastolic blood pressure 78 mm[Hg] Herminia Case MD Work Phone: [facility] 07-30-2024 14:53-0400 Heart rate 106 /min Herminia Case MD Work Phone: [facility] 07-30-2024 14:53-0400 SaO2% (BldA) [Mass fraction] 82 % Herminia Case MD Work Phone: [facility] 07-30-2024 14:53-0400 Systolic blood pressure 120 mm[Hg] Herminia Case MD Work Phone: [facility] 04-28-2024 01:19-0500 Diastolic blood pressure 78 mm[Hg] Flako Altamirano MD Work Phone: [facility] 04-28-2024 01:19-0500 Heart rate 87 /min Flako Altamirano MD Work Phone: [email or web address] 04-28-2024 01:19-0500 Respiratory rate 16 /min Flako Altamirano MD Work Phone: [email or web address] 04-28-2024 01:19-0500 SaO2% (BldA) [Mass fraction] 96 % Flako Altamirano MD Work Phone: [email or web address] 04-28-2024 01:19-0500 Systolic blood pressure 119 mm[Hg] Flako Altamirano MD Work Phone: [email or web address] 04-27-2024 23:43-0500 Body height 160 cm Flako Altamirano MD Work Phone: [facility] 04-27-2024 23:43-0500 Body mass index (BMI) [Ratio] 19.13 kg/m2 Flako Altamirano MD Work Phone: [email or web address] 04-27-2024 23:43-0500 Body temperature 98.1 [degF] Flako Altamirano MD Work Phone: [facility] 04-27-2024 23:43-0500 Body weight 48.99 kg Flako Altamirano MD Work Phone: [facility] 10-16-2023 21:24-0400 Body temperature 98.1 [degF] Herminia Case MD Work Phone: [facility] 10-16-2023 21:24-0400 Diastolic blood pressure 95 mm[Hg] Herminia Case MD Work Phone: [facility] 10-16-2023 21:24-0400 Heart rate 99 /min Herminia Case MD Work Phone: [facility] 10-16-2023 21:24-0400 Respiratory rate 14 /min Herminia Case MD Work Phone: [email or web address] 10-16-2023 21:24-0400 SaO2% (BldA) [Mass fraction] 94 % Herminia Case MD Work Phone: [facility] 10-16-2023 21:24-0400 Systolic blood pressure 125 mm[Hg] Herminia Case MD Work Phone: [facility] 09-22-2023 07:58-0400 Body temperature 97.39 [degF] Jono Weathers MD Work Phone: [facility] 09-22-2023 07:58-0400 Diastolic blood pressure 96 mm[Hg] Jono Weathers MD Work Phone: [facility] 09-22-2023 07:58-0400 Heart rate 99 /min Jono Weathers MD Work Phone: [facility] 09-22-2023 07:58-0400 Respiratory rate 17 /min Jono Weathers MD Work Phone: [facility] 09-22-2023 07:58-0400 SaO2% (BldA) [Mass fraction] 96 % Jono Weathers MD Work Phone: [facility] 09-22-2023 07:58-0400 Systolic blood pressure 140 mm[Hg] Jono Weathers MD Work Phone: [facility] 09-20-2023 15:22-0400 Body height 165.1 cm Jono Weathers MD Work Phone: [facility] 09-20-2023 15:22-0400 Body mass index (BMI) [Ratio] 19.14 kg/m2 Jono Weathers MD Work Phone: [facility] 09-20-2023 15:22-0400 Body weight 52.16 kg Jono Weathers MD Work Phone: [facility] 09-08-2023 15:40-0400 Body height 164.1 cm Barbi Goldberg MD Work Phone: [facility] 09-08-2023 15:40-0400 Body mass index (BMI) [Ratio] 20.61 kg/m2 Barbi Goldberg MD Work Phone: [facility] 09-08-2023 15:40-0400 Body temperature 99.3 [degF] Barbi Goldberg MD Work Phone: [facility] 09-08-2023 15:40-0400 Body weight 55.5 kg Barbi Goldberg MD Work Phone: [facility] 09-08-2023 15:40-0400 Diastolic blood pressure 87 mm[Hg] Barbi Goldberg MD Work Phone: [facility] 09-08-2023 15:40-0400 Heart rate 105 /min Barbi Goldberg MD Work Phone: [facility] 09-08-2023 15:40-0400 SaO2% (BldA) [Mass fraction] 92 % Barbi Goldberg MD Work Phone: [facility] 09-08-2023 15:40-0400 Systolic blood pressure 139 mm[Hg] Barbi Goldberg MD Work Phone: [facility] 08-07-2023 18:00-0400 Diastolic blood pressure 79 mm[Hg] Herminia Case MD Work Phone: [facility] 08-07-2023 18:00-0400 Heart rate 97 /min Herminia Case MD Work Phone: [facility] 08-07-2023 18:00-0400 Respiratory rate 23 /min Herminia Case MD Work Phone: [facility] 08-07-2023 18:00-0400 SaO2% (BldA) [Mass fraction] 92 % Herminia Case MD Work Phone: [facility] 08-07-2023 18:00-0400 Systolic blood pressure 137 mm[Hg] Herminia Case MD Work Phone: [facility] 08-07-2023 14:41-0400 Body mass index (BMI) [Ratio] 20.8 kg/m2 Herminia Case MD Work Phone: [facility] 08-07-2023 14:41-0400 Body temperature 98.01 [degF] Herminia Case MD Work Phone: [facility] 08-07-2023 14:41-0400 Body weight 56.7 kg Herminia Case MD Work Phone: [facility] 05-02-2023 14:31-0500 Body height 164.1 cm Herminia Case MD Work Phone: [facility] 05-02-2023 14:31-0500 Body temperature 98.1 [degF] Herminia Case MD Work Phone: [facility] 05-02-2023 14:31-0500 Body weight 60.1 kg Herminia Case MD Work Phone: [facility] 05-02-2023 14:31-0500 Diastolic blood pressure 78 mm[Hg] Herminia Case MD Work Phone: [facility] 05-02-2023 14:31-0500 Heart rate 87 /min Herminia Case MD Work Phone: [facility] 05-02-2023 14:31-0500 SaO2% (BldA) [Mass fraction] 90 % Herminia Case MD Work Phone: [facility] 05-02-2023 14:31-0500 Systolic blood pressure 112 mm[Hg] Herminia Case MD Work Phone: [facility] 02-18-2023 09:31-0500 Body temperature 98.01 [degF] Lorenzo Orozco MD Work Phone: [facility] 02-18-2023 09:31-0500 Diastolic blood pressure 76 mm[Hg] Lorenzo Orozco MD Work Phone: [facility] 02-18-2023 09:31-0500 Heart rate 87 /min Lorenzo Orozco MD Work Phone: [facility] 02-18-2023 09:31-0500 Respiratory rate 20 /min Lorenzo Orozco MD Work Phone: [facility] 02-18-2023 09:31-0500 SaO2% (BldA) [Mass fraction] 97 % Lorenzo Orozco MD Work Phone: [facility] 02-18-2023 09:31-0500 Systolic blood pressure 128 mm[Hg] Lorenzo Orozco MD Work Phone: [facility] 02-14-2023 10:00-0500 Body mass index (BMI) [Ratio] 22.47 kg/m2 Lorenzo Orozco MD Work Phone: [facility] 02-14-2023 10:00-0500 Body weight 61.24 kg Lorenzo Orozco MD Work Phone: [facility] 02-13-2023 19:05-0500 Body height 165.1 cm Lorenzo Orozco MD Work Phone: [facility] 01-14-2023 16:00-0400 Body height 164.1 cm Herminia Case MD Work Phone: [facility] 01-14-2023 16:00-0400 Body temperature 97.59 [degF] Herminia Case MD Work Phone: [facility] 01-14-2023 16:00-0400 Body weight 62.14 kg Herminia Case MD Work Phone: [facility] 01-14-2023 16:00-0400 Diastolic blood pressure 70 mm[Hg] Herminia Case MD Work Phone: [facility] 01-14-2023 16:00-0400 Heart rate 83 /min Herminia Case MD Work Phone: [facility] 01-14-2023 16:00-0400 SaO2% (BldA) [Mass fraction] 93 % Herminia Case MD Work Phone: [facility] 01-14-2023 16:00-0400 Systolic blood pressure 100 mm[Hg] Herminia Case MD Work Phone: [facility] 11-08-2022 08:37-0400 Heart rate 87 /min Austyn Mccann DO Work Phone: [facility] 11-08-2022 08:37-0400 Respiratory rate 16 /min Austyn Mccann DO Work Phone: [facility] 11-08-2022 08:37-0400 SaO2% (BldA) [Mass fraction] 97 % Austyn Mccann DO Work Phone: [facility] 11-08-2022 07:29-0400 Body temperature 97.81 [degF] Austyn Mccann DO Work Phone: [facility] 11-08-2022 07:29-0400 Diastolic blood pressure 63 mm[Hg] Austyn Mccann DO Work Phone: [facility] 11-08-2022 07:29-0400 Systolic blood pressure 108 mm[Hg] Austyn Mccann DO Work Phone: [facility] 11-06-2022 18:36-0400 Body height 162.6 cm Austyn Mccann DO Work Phone: [facility] 11-06-2022 18:36-0400 Body mass index (BMI) [Ratio] 22.31 kg/m2 Austyn Mccann DO Work Phone: [facility] 11-06-2022 18:36-0400 Body weight 58.97 kg Austyn Mccann DO Work Phone: [facility] 10-20-2022 14:06-0400 Body height 160 cm Kisha Afshin SOUND PRINTER - DENTIST Work Phone: [email or web address] 10-20-2022 14:06-0400 Body mass index (BMI) [Ratio] 23.56 kg/m2 Kisha Afshin SOUND PRINTER - DENTIST Work Phone: [facility] 10-20-2022 14:06-0400 Body weight 60.33 kg Kisha Afshin SOUND PRINTER - DENTIST Work Phone: [email or web address] 10-20-2022 14:06-0400 Diastolic blood pressure 83 mm[Hg] Kisha Afshin SOUND PRINTER - DENTIST Work Phone[facility] 10-20-2022 14:06-0400 Heart rate 96 /min Kisha Pepe SOUND PRINTER - DENTIST Work Phone: [facility] 10-20-2022 14:06-0400 Systolic blood pressure 143 mm[Hg] Kisha Pepe SOUND PRINTER - DENTIST Work Phone: [facility] 09-15-2022 14:40-0400 Body height 165.1 cm Melva Ladonna PA-C Work Phone: [facility] 09-15-2022 14:40-0400 Body temperature 97.3 [degF] Melva Ladonna PA-C Work Phone: [facility] 09-15-2022 14:40-0400 Body weight 61.1 kg Melva Ephraim PA-C Work Phone: [facility] 09-15-2022 14:40-0400 Diastolic blood pressure 78 mm[Hg] Melva Ladonna PA-C Work Phone: [facility] 09-15-2022 14:40-0400 Heart rate 101 /min Melva Ladonna PA-C Work Phone: [facility] 09-15-2022 14:40-0400 SaO2% (BldA) [Mass fraction] 95 % Melva Ladonna PA-C Work Phone: [facility] 09-15-2022 14:40-0400 Systolic blood pressure 133 mm[Hg] Melva Ephraim PA-C Work Phone: [facility] 05-24-2022 07:52-0500 Heart rate 98 /min Martha Flores MD Work Phone: [facility] 05-24-2022 07:52-0500 Respiratory rate 16 /min Martha Flores MD Work Phone: [facility] 05-24-2022 07:52-0500 SaO2% (BldA) [Mass fraction] 92 % Martha Flores MD Work Phone: [email or web address] 05-24-2022 07:24-0500 Body temperature 98.49 [degF] Martha Flores MD Work Phone: [facility] 05-24-2022 07:24-0500 Diastolic blood pressure 73 mm[Hg] Martha Flores MD Work Phone: [facility] 05-24-2022 07:24-0500 Systolic blood pressure 126 mm[Hg] Martha Flores MD Work Phone: [facility] 05-22-2022 05:38-0500 Body mass index (BMI) [Ratio] 24.32 kg/m2 Martha Flores MD Work Phone: [facility] 05-22-2022 05:38-0500 Body weight 66.3 kg Martha Flores MD Work Phone: [facility] 05-21-2022 17:58-0500 Body height 165.1 cm Martha Flores MD Work Phone: [facility] 04-21-2022 14:05-0500 Body height 165.1 cm Sally Aj SOUND PRINTER - DENTIST Work Phone: [facility] 04-21-2022 14:05-0500 Body mass index (BMI) [Ratio] 23.63 kg/m2 Sally Aj SOUND PRINTER - DENTIST Work Phone: [facility] 04-21-2022 14:05-0500 Body weight 64.41 kg Sally Riojasher SOUND PRINTER - DENTIST Work Phone: [facility] 04-21-2022 14:05-0500 Diastolic blood pressure 78 mm[Hg] Sally Aj SOUND PRINTER - DENTIST Work Phone: [facility] 04-21-2022 14:05-0500 Heart rate 93 /min Sally Riojasher SOUND PRINTER - DENTIST Work Phone: [facility] 04-21-2022 14:05-0500 Systolic blood pressure 122 mm[Hg] Sally Rocha SOUND PRINTER - DENTIST Work Phone: [facility] 08-06-2021 17:18-0400 Heart rate 96 /min Herminia Case MD Work Phone: [facility] 08-06-2021 17:18-0400 SaO2% (BldA) [Mass fraction] 84 % Herminia Case MD Work Phone: [facility] 08-06-2021 16:44-0400 Diastolic blood pressure 74 mm[Hg] Herminia Case MD Work Phone: [facility] 08-06-2021 16:44-0400 Systolic blood pressure 124 mm[Hg] Herminia Case MD Work Phone: [facility] 08-06-2021 16:35-0400 Body temperature 98.8 [degF] Herminia Case MD Work Phone: [facility] 08-06-2021 16:35-0400 Body weight 58.79 kg Herminia Case MD Work Phone: [facility] 10-16-2020 14:42-0400 Body temperature 98.49 [degF] Herminia Case MD Work Phone: [facility] Work Phone: 10-16-2020 14:42-0400 Diastolic blood pressure 79 mm[Hg] Herm[facility] MD [facility] Work Phone: 10-16-2020 14:42-0400 Heart rate 85 /min Herminia Case MD [facility] Work Phone: 10-16-2020 14:42-0400 Respiratory rate 20 /min Herminia Case MD [facility]: [facility] Work Phone: 10-16-2020 14:42-0400 SaO2% (BldA) [Mass fraction] 91 % Herminia Case MD [facility] Work Phone: 10-16-2020 14:42-0400 Systolic blood pressure 117 mm[Hg] Herminia Case MD Work Phone: [facility] Work Phone: 03-16-2020 16:32-0500 BP Diastolic 83 mm[Hg] [facility] [place] 03-16-2020 16:32-0500 BP Systolic 133 mm[Hg] [facility] [place] 03-16-2020 16:32-0500 Pulse (Heart Rate) 101 /min [facility] [place] 03-16-2020 16:32-0500 Pulse Oximetry 94 % [facility] [place] 03-16-2020 16:32-0500 Respiratory Rate 20 /[facility] [place] 03-16-2020 11:57-0500 BMI (Body Mass Index) 23.17 kg/m2 [facility] [place] 03-16-2020 11:57-0500 Body Temperature 98.8 [degF] [facility] [place] 03-16-2020 11:57-0500 Body weight 61.24 kg [facility] [place] 02-22-2020 09:21-0500 BP Diastolic 72 mm[Hg] Ziyad Menendez [facility] , [place] 02-22-2020 09:21-0500 BP Systolic 102 mm[Hg] Ziyad Menendez [facility] , [place] 02-22-2020 09:21-0500 Pulse (Heart Rate) 98 /min Ziyad Menendez [facility], [place] 02-22-2020 09:21-0500 Pulse Oximetry 92 % Ziyad Menendez [facility] , [place] 02-22-2020 09:21-0500 Respiratory Rate 16 /min [facility] [place] 02-22-2020 09:07-0500 BMI (Body Mass Index) 23.52 kg/m2 Ziyad Menendez [facility], [place] 02-22-2020 09:07-0500 Body weight 62.14 kg Ziyad Menendez [facility] , [place] 02-22-2020 09:07-0500 Height 162.6 cm Ziyad Alicia [facility] , [place] 02-21-2020 14:47-0500 Body Temperature 97.59 [degF] Ziyad Alicia [facility] [place] 02-21-2020 14:47-0500 BP Diastolic 74 mm[Hg] Ziyad Alicia [facility] , [place] 02-21-2020 14:47-0500 BP Systolic 113 mm[Hg] Ziyad Alicia [facility] , [place] 02-21-2020 14:47-0500 Pulse (Heart Rate) 90 /min Ziyad Alicia [facility], [place] 02-21-2020 14:47-0500 Respiratory Rate 20 /min [facility] [place] 02-08-2020 09:28-0500 BMI (Body Mass Index) 23.48 kg/m2 Ziyad Alicia [facility], [place] 02-08-2020 09:28-0500 Body Temperature 98.6 [degF] [facility] [place] 02-08-2020 09:28-0500 Body weight 62.05 kg [facility] , [place] 02-08-2020 09:28-0500 BP Diastolic 81 mm[Hg] [facility] , [place] 02-08-2020 09:28-0500 BP Systolic 98 mm[Hg] [facility] , [place] 02-08-2020 09:28-0500 Height 162.6 cm Ziyad Alicia [facility] , [place] 02-08-2020 09:28-0500 Pulse (Heart Rate) 104 /min Ziyad Alicia [facility], [place] 02-08-2020 09:28-0500 Pulse Oximetry 91 % Ziyad Menendez [facility] , [place] 02-08-2020 09:28-0500 Respiratory Rate 16 /min [facility]ad [facility], [place] 02-01-2020 09:08-0500 BMI (Body Mass Index) 23.49 kg/m2 Ziyad Alicia [facility], [place] 02-01-2020 09:08-0500 Body weight 62.41 kg [facility]ad [facility] , [place] 02-01-2020 09:08-0500 Height 163 cm Ziyad Alicia [facility] , [place] 01-31-2020 14:04-0500 Body Temperature 97.9 [degF] Ziyad Alicia [facility] , [place] 01-31-2020 14:04-0500 BP Diastolic 82 mm[Hg] Ziyad Alicia [facility] , [place] 01-31-2020 14:04-0500 BP Systolic 117 mm[Hg] Ziyad Alicia [facility] , [place] 01-31-2020 14:04-0500 Pulse (Heart Rate) 109 /min Ziyad Alicia [facility], [place] 01-31-2020 14:04-0500 Respiratory Rate 20 /min Ziyad Alicia [facility], [place] 01-25-2020 09:25-0500 Body Temperature 99.19 [degF] Ziyad Alicia [facility], [place] 01-25-2020 09:25-0500 BP Diastolic 80 mm[Hg] Ziyad Menendez [facility] , [place] 01-25-2020 09:25-0500 BP Systolic 113 mm[Hg] [facility] , [place] 01-25-2020 09:25-0500 Pulse (Heart Rate) 104 /min Ziyad Alicia [facility], [place] 01-25-2020 09:25-0500 Pulse Oximetry 93 % Ziyad Alicia [facility] , [place] 01-25-2020 09:25-0500 Respiratory Rate 16 /min Ziyad Alicia [facility], [place] 01-25-2020 09:21-0500 BMI (Body Mass Index) 23.22 kg/m2 Ziyad Alicia [facility], [place] 01-25-2020 09:21-0500 Body weight 61.69 kg [facility]iyad Menendez [facility] , [place] 01-25-2020 09:21-0500 Height 163 cm Ziyad Alicia [facility] , [place] 01-24-2020 09:25-0500 BMI (Body Mass Index) 23.22 kg/m2 Ziyad Alicia [facility], [place] 01-24-2020 09:25-0500 Body weight 61.69 kg Ziyad Menendez [facility] , [place] 12-19-2019 15:00-0400 BP Diastolic 77 mm[Hg] Ziyad Menendez [facility] , [place] 12-19-2019 15:00-0400 BP Systolic 144 mm[Hg] Ziyad Menendez [facility] , [place] 12-19-2019 15:00-0400 Pulse (Heart Rate) 92 /min [facility] [place] 12-19-2019 15:00-0400 Pulse Oximetry 99 % Ziyad Menendez [facility] , [place] 12-19-2019 15:00-0400 Respiratory Rate 18 /min Ziyad Menendez [facility], [place] 12-19-2019 11:25-0400 BMI (Body Mass Index) 23.46 kg/m2 Ziyad Menendez [facility], [place] 12-19-2019 11:25-0400 Body Temperature 99.5 [degF] Ziyad Menendez [facility], [place] 12-19-2019 11:25-0400 Body weight 63.96 kg Ziyad Menendez [facility] , [place] 12-19-2019 11:25-0400 Height 165.1 cm Ziyad Menendez [facility] , [place] 11-24-2019 11:45-0400 Body Temperature 98.2 [degF] [facility] [place] [place] 11-24-2019 11:45-0400 BP Diastolic 81 mm[facility]Hg] [facility] [place] 11-24-2019 11:45-0400 BP Systolic 126 mm[Hg] [facility] [place] 11-24-2019 11:45-0400 Pulse (Heart Rate) 90 /min [facility] [place] [place] 11-24-2019 11:45-0400 Pulse Oximetry 97 % [facility] [place] 11-24-2019 11:45-0400 Respiratory Rate 18 /min [facility] [place] [place] 11-22-2019 10:31-0400 Height 165.1 cm [facility] [place] 11-21-2019 21:35-0400 BMI (Body Mass Index) 25.96 kg/m2 [facility], [place] 11-21-2019 21:35-0400 Body weight 70.76 kg Ray [facility], [place] 11-09-2019 22:55-0400 BMI (Body Mass Index) 24.96 kg/m2 [facility] [place] 11-09-2019 22:55-0400 Body Temperature 98.29 [degF] [facility] [place] 11-09-2019 22:55-0400 Body weight 68.04 kg [facility] , [place] Comment on above: from 10/21/19 11-09-2019 22:55-0400 BP Diastolic 72 mm[facility]Hg] [facility] [place] [facility] [place] 11-09-2019 22:55-0400 BP Systolic 120 mm[Hg] Tani [facility] , [place] 11-09-2019 22:55-0400 Pulse (Heart Rate) 107 /[facility] [place] 11-09-2019 22:55-0400 Pulse Oximetry 95 % Tani [facility] , [place] 11-09-2019 22:55-0400 Respiratory Rate 18 /min Tani [facility], [place] 11-05-2019 13:04-0400 BMI (Body Mass Index) 24.96 kg/m2 Ziyad Menendez [facility], [place] 11-05-2019 13:04-0400 Body Temperature 98.49 [degF] Ziyad Menendez [facility], [place] 11-05-2019 13:04-0400 Body weight 68.04 kg Ziyad Menendez [facility] , [place] 11-05-2019 13:04-0400 BP Diastolic 83 mm[Hg] Ziyad Menendez [facility] , [place] 11-05-2019 13:04-0400 BP Systolic 124 mm[Hg] Ziyad Menendez [facility] , [place] 11-05-2019 13:04-0400 Height 165.1 cm Ziyad Menendez [facility] , [place] 11-05-2019 13:04-0400 Pulse (Heart Rate) 92 /min Ziyad Menendez [facility], [place] 11-05-2019 13:04-0400 Pulse Oximetry 89 % Ziyad Menendez [facility] , [place] 11-05-2019 13:04-0400 Respiratory Rate 16 /min [facility], [place] 10-27-2019 17:39-0400 BP Diastolic 82 mm[Hg] [facility] [place] [facility] [place] 10-27-2019 17:39-0400 BP Systolic 129 mm[Hg] Ankit [facility] , [place] 10-27-2019 17:39-0400 Pulse (Heart Rate) 87 /min Ankit [facility], [place] 10-27-2019 17:39-0400 Pulse Oximetry 95 % Ankit [facility] , [place] 10-27-2019 17:39-0400 Respiratory Rate 18 /min [facility] [place] 10-27-2019 15:07-0400 Body Temperature 98.2 [degF] Ankit [facility], [place] 10-27-2019 15:04-0400 BMI (Body Mass Index) 24.96 kg/m2 Ankit [facility], [place] 10-27-2019 15:04-0400 Body weight 68.04 kg Ankit [facility] , [place] 10-27-2019 15:04-0400 Height 165.1 cm Ankit [facility] , [place] 10-21-2019 23:01-0400 BP Diastolic 99 mm[Hg] [facility] , [place] 10-21-2019 23:01-0400 BP Systolic 152 mm[Hg] [facility] , [place] 10-21-2019 23:01-0400 Pulse (Heart Rate) 86 /min [facility], [place] 10-21-2019 23:01-0400 Pulse Oximetry 95 % [facility] , [place] 10-21-2019 23:01-0400 Respiratory Rate 18 /min [facility], [place] 10-21-2019 19:59-0400 BMI (Body Mass Index) 24.96 kg/m2 [facility], [place] 10-21-2019 19:59-0400 Body Temperature 98.29 [degF] Jaspreet [place], [place] 10-21-2019 19:59-0400 Body weight 68.04 kg Jaspreet [place], [place] 08-04-2019 09:35-0400 Pulse Oximetry 95 % Joanie [place], [place] 08-04-2019 09:35-0400 Respiratory Rate 18 /min [place], [place] 08-04-2019 09:08-0400 Body Temperature 98.1 [degF] [place], [place] 08-04-2019 09:08-0400 BP Diastolic 74 mm[Hg] [place], [place] 08-04-2019 09:08-0400 BP Systolic 120 mm[Hg] [place] 08-04-2019 09:08-0400 Pulse (Heart Rate) 66 /min [place], [place] 08-02-2019 20:51-0400 BMI (Body Mass Index) 23.3 kg/m2 [place], [place] 08-02-2019 20:51-0400 Body weight 63.5 kg [place], [place] 08-02-2019 20:51-0400 Height 165.1 cm [place], [place] Encounters Encounter Date Encounter Type Care Provider Facility Start: 01-28-2025 ambulatory Jameson STALLINGS Faci lity:[facility] Start: 01-24-2025 End: 01-24-2025 Telephone encounter Pradeep Ashraf GREEN BUILDING ENGINEER [facility] Resp Therapy Start: 01-12-2025 End: 01-22-2025 Evaluation and management of inpatient Freddy Linder MD Work Phone: [facility] Medical Surgical Unit MSU 4S Comment on above: COPD exacerbation (H CC) (Primary Dx); Respiratory acidosis; Hypoxia; Tachycardia; DDD (degenerative disc disease), cervical Start: 12-28-2024 End: 12-28-2024 Telephone encounter Elyssa Tesfaye NP Work Phone: [facility] Pulmonary and Sleep Medicine [facility] Start: 12-28-2024 End: 12-28-2024 Office outpatient visit 25 minutes Elyssa Tesfaye NP Work Phone: [facility]monary [facility] Sleep [facility] Comment on above: Centrilobular emphys yanna (HCC) (Primary Dx); Chronic respiratory failure with hypoxia (HCC); History of tobacco abuse; Severe malnutrition (CMS/HCC) (HCC); Pulmonary nodule Start: 12-28-2024 End: 12-28-2024 ambulatory [facility] Start: 12-18-2024 End: 01-03-2025 Telephone encounter Desiree Redding RN [facility] Clinical Communication Start: 12-12-2024 Registered Referred Jameson Corral - Bobby TYSON Start: 12-12-2024 End: 12-12-2024 ambulatory Jameson STALLINGS Facility:[facility] Start: 11-20-2024 End: 11-20-2024 ambulatory ELYSSA [facility] Start: 11-20-2024 End: 11-20-2024 Subsequent hospital visit by physician Elyssa Tesfaye SENIOR C SOFTWARE DEVELOPER Work Phone: [facility] Comment on above: Chronic obstructive pulmonary disease with acute lower respiratory infection (HCC) Start: 10-24-2024 End: 10-24-2024 ambulatory ELYSSA [facility] Start: 10-01-2024 ambulatory Jameson STALLINGS Faci lity:[facility] Start: 10-01-2024 Registered Referred [employer] [employer] Start: 09-17-2024 End: 09-17-2024 ambulatory Jameson STALLINGS [facility] [employer] Start: 09-17-2024 End: 09-17-2024 Departed Referred Jameson Corral [facility] [employer] Start: 09-17-2024 Registered Referred Jameson [employer] Start: 09-17-2024 End: 09-17-2024 ambulatory Jameson STALLINGS Facility:[facility] Start: 09-14-2024 End: 09-14-2024 ambulatory Jameson STALLINGS -[place] [employer] Start: 09-14-2024 End: 09-14-2024 Departed Referred Jameson Corral [facility] [facility] Start: 09-14-2024 End: 09-14-2024 ambulatory Jameson STALLINGS Facility:[facility] Start: 09-07-2024 End: 09-11-2024 Refill Herminia Case MD Work Phone: [facility] Comment on above: Refill Request Start: 09-07-2024 End: 09-07-2024 Telephone encounter Ziyad Menendez MD Work Phone: [facility] Gynecologic Oncology - [place] Start: 09-06-2024 End: 09-06-2024 ambulatory Ziyad Menendez MD Work Phone: [facility] Comment on above: Other specified comp lication of vascular prosthetic devices, implants and grafts, initial encounter (HCC) (Primary Dx); Poor venous access Start: 08-22-2024 End: 09-03-2024 Refill Herminia Case MD Work Phone: [facility] Comment on above: Refill Request Start: 08-20-2024 End: 08-20-2024 Office outpatient visit 25 minutes Elyssa Tesfaye NP Work Phone: [facility] Pulmonary and Sleep Medicine [facility] Comment on above: Hospital discharge f ollow-up (Primary Dx); Acute on chronic respiratory failure with hypoxia (HCC); Centrilobular emphysema (HCC); Aspiration pneumonia of left lower lobe, unspecified aspiration pneumonia type (HCC); Chronic obstructive pulmonary disease with acute lower respiratory infection (HCC); History of tobacco abuse; Severe malnutrition (CMS/HCC) (HCC) Start: 08-20-2024 End: 08-20-2024 ambulatory ELYSSA TESFAYE [facility] Start: 08-18-2024 End: 08-24-2024 Refill Herminia Case MD Work Phone: [facility] Comment on above: Refill Request Start: 08-15-2024 ambulatory Jameson STALLINGS Faci lity:[facility] Start: 08-13-2024 End: 08-14-2024 Refill Melva Juárez PA-C Work Phone: [facility] Comment on above: Refill Request Start: 08-08-2024 End: 08-08-2024 Orders Only Melva Garcia RN [facility] Palliative [facility] Comment on above: Chronic obstructive pulmonary disease, unspecified COPD type (HCC) (Primary Dx); Severe malnutrition (CMS/HCC) (HCC) Start: 07-30-2024 End: 08-08-2024 Evaluation and management of inpatient Luis E Keating DO Work Phone: [facility] Cardiac Progressive Care Unit PCU 2E Comment on above: Adult failure to thr kenton (Primary Dx); Severe protein-calorie malnutrition (HCC); Closed supracondylar fracture of left humerus, initial encounter; Severe malnutrition (CMS/HCC) (HCC); Pulmonary emphysema, unspecified emphysema type (HCC); Chronic obstructive pulmonary disease, unspecified COPD type (HCC) Start: 07-30-2024 End: 07-30-2024 Office outpatient visit 25 minutes Herminia Case MD Work Phone: [facility] Comment on above: Chronic respiratory failure with hypoxia (HCC) (Primary Dx); Centrilobular emphysema (HCC); Adult failure to thrive; Severe protein-calorie malnutrition (HCC) Start: 07-30-2024 End: 07-30-2024 ambulatory HERMINIA CASE Facility:[facility] Start: 07-22-2024 End: 07-23-2024 Refill Herminia Case MD Work Phone: [facility] Comment on above: Refill Request Start: 06-30-2024 End: 07-02-2024 Telephone encounter Herminia Case MD Work Phone: [facility] Comment on above: Orders Start: 06-26-2024 End: 06-26-2024 Refill Melva Juárez PA-C Work Phone: [facility] Comment on above: Refill Request Start: 06-07-2024 End: 06-07-2024 Telephone encounter Maddi Valero LPN Work Phone: [facility] Comment on above: Home Care (SOC appro martín.) Home Care (Confirmat ion call.) Start: 06-06-2024 End: 06-06-2024 ambulatory HERMINIA CASE Facility:[facility] Start: 06-06-2024 End: 06-06-2024 Telemedicine consultation with patient Herminia Case MD Work Phone: [facility] Start: 06-06-2024 End: 06-06-2024 Telephone encounter Herminia Case MD Work Phone: [facility] Comment on above: Home Care Panlobular emphysema (HCC) (Primary Dx); Moderate episode of recurrent major depressive disorder (HCC); Chronic respiratory failure with hypoxia (HCC) Start: 05-26-2024 End: 05-28-2024 Refill Herminia Case MD Work Phone: [facility] Comment on above: Refill Request Start: 05-22-2024 End: 06-22-2024 ambulatory Herminia Case MD Work Phone: [facility] Start: 05-08-2024 End: 05-10-2024 Refill Melva Juárez PA-C Work Phone: [facility] Comment on above: Refill Request Start: 05-02-2024 End: 05-02-2024 [facility] Herminia Case MD Work Phone: [facility] Comment on above: Compression fracture of body of thoracic vertebra (HCC) (Primary Dx); Panlobular emphysema (HCC); Moderate episode of recurrent major depressive disorder (HCC); PAUL (generalized anxiety disorder); Chronic respiratory failure with hypoxia (HCC); Hyperlipidemia, mixed; Hyperglycemia; Other closed nondisplaced fracture of proximal end of right humerus with routine healing, subsequent encounter Start: 04-30-2024 End: 05-01-2024 Refill Herminia Case MD Work Phone: [facility] Comment on above: Refill Request Start: 04-27-2024 End: 04-28-2024 Emergency department patient visit Flako Altamirano MD Work Phone: [facility] ED Comment on above: Contusion of face, i nitial encounter (Primary Dx) Start: 04-23-2024 End: 04-24-2024 ambulatory Melva Juárez PA-C Work Phone: [facility] Comment on above: Copd meds Start: 04-06-2024 End: 04-06-2024 Refill Herminia Case MD Work Phone: [facility] Comment on above: Refill Request Start: 03-31-2024 End: 04-03-2024 Refill Herminia Case MD Work Phone: [facility] Comment on above: Refill Request Start: 03-18-2024 End: 03-20-2024 Refill Melva Juárez PA-C Work Phone: [facility] Comment on above: Refill Request Start: 03-10-2024 End: 03-12-2024 Refill Melva Juárez PA-C Work Phone: [facility] Comment on above: Refill Request Start: 03-09-2024 End: 03-09-2024 Refill Herminia Case MD Work Phone: [facility] Comment on above: Refill Request Start: 03-04-2024 End: 03-06-2024 Refill Herminia Case MD Work Phone: [facility] Comment on above: Refill Request Start: 03-01-2024 End: 03-05-2024 Telephone encounter Herminia Case MD Work Phone: [facility] Comment on above: Medication Problem Start: 02-06-2024 End: 02-07-2024 ambulatory Melva Juárez PA-C Work Phone: [facility] Comment on above: [place] Refill Request Start: 01-11-2024 End: 01-11-2024 Refill Brando Simon MD Work Phone: [facility] Comment on above: Refill Request Start: 01-10-2024 End: 01-11-2024 Refill Melva Juárez PA-C Work Phone: [facility] Comment on above: Refill Request Start: 01-09-2024 End: 01-11-2024 Refill Herminia Case MD Work Phone: [facility] Comment on above: Refill Request Copd med Start: 01-08-2024 End: 01-09-2024 Refill Herminia Case MD Work Phone: [facility] Comment on above: Refill Request Start: 12-30-2023 End: 12-30-2023 ambulatory Joaquina Rao SOUND PRINTER.DENTIST Work Phone: [facility] Comment on above: Panlobular emphysema (HCC) Start: 12-30-2023 End: 12-30-2023 Telemedicine consultation with patient Joaquina Rao SOUND PRINTER.DENTIST Work Phone: [facility] Start: 12-27-2023 End: 12-27-2023 Refill Jessica Kong SOUND PRINTER.DENTIST Work Phone: [facility] Comment on above: Refill Request Start: 12-27-2023 End: 12-27-2023 Telephone encounter Herminia Case MD Work Phone: [facility] Comment on above: Orders Start: 12-13-2023 End: 12-14-2023 Telephone encounter Herminia Case MD Work Phone: [facility] Comment on above: Results Refill Request Start: 12-06-2023 End: 12-08-2023 Home visit Herminia Case MD Work Phone: [facility] Comment on above: Osteoporotic vertebr al collapse, with routine healing, subsequent encounter (Primary Dx) Start: 12-06-2023 End: 12-06-2023 Telephone encounter Herminia Case MD Work Phone: [facility] Comment on above: Orders Start: 11-28-2023 End: 11-28-2023 Refill Melva Juárez PA-C Work Phone: [facility] Comment on above: Refill Request Start: 11-14-2023 End: 11-15-2023 Telephone encounter Herminia Case MD Work Phone: [facility] Comment on above: Orders Refill Request Start: 11-12-2023 End: 11-12-2023 Refill Melva Juárez PA-C Work Phone: [facility] Comment on above: Refill Request Start: 11-02-2023 Refill Brando leblanc MD Work Phone: [facility] Comment on above: Refill Request Start: 10-28-2023 Telephone encounter Herminia warner MD Work Phone: [facility] Comment on above: Orders Start: 10-22-2023 Telephone encounter Herminia warner MD Work Phone: [address] [place] [address] Comment on above: Patient Update Start: 10-18-2023 Telephone encounter Herminia warner MD Work Phone: [facility] Comment on above: Orders Start: 10-16-2023 End: 10-16-2023 Emergency department patient visit Herminia Case MD Work Phone: [facility] Comment on above: Fall, initial encoun ter (Primary Dx); Compression fracture of body of thoracic vertebra (HCC) Start: 10-11-2023 Home visit Hermiina Mccurdy Work Phone: [facility] Comment on above: Osteoporotic vertebr al collapse, with routine healing, subsequent encounter (Primary Dx) Start: 10-10-2023 Telephone encounter Herminia warner MD Work Phone: [facility] Comment on above: Orders Start: 10-06-2023 Home visit Herminia Mccurdy Work Phone: [facility] Comment on above: Pathological fractur e of vertebra due to other osteoporosis with routine healing, subsequent encounter (Primary Dx) Start: 10-06-2023 Telephone encounter [facility] (Physical therapy delayed 1 week) Start: 10-06-2023 Unlisted evaluation and management service Herminia Case MD [facility] Comment on above: OPENED IN ERROR (Mariam phillip Dx) Start: 09-21-2023 Telephone encounter Herm[facility]ner MD [facility] Comment on above: Patient Update Start: 09-19-2023 End: 09-22-2023 Evaluation and management of inpatient Jono Weathers MD Work Phone: [facility] Cardiac Progressive Care Unit PCU 2E Comment on above: Near syncope (Primar y Dx); Closed head injury, initial encounter; Fall, initial encounter; Compression fracture of T5 vertebra, initial encounter (HCC); Compression fracture of T7 vertebra, initial encounter (HCC); Compression fracture of T8 vertebra, initial encounter (HCC); Compression fracture of L1 vertebra, initial encounter (HCC) Start: 09-16-2023 Refill Herminia Mccurdy Work Phone: [facility] Comment on above: Refill Request Start: 09-15-2023 Refill Herminia Mccurdy Work Phone: [facility] Comment on above: Refill Request Start: 09-14-2023 Refill Melva silva PA-C Work Phone: [facility] Comment on above: Refill Request Start: 09-08-2023 End: 09-08-2023 ambulatory HERMINIA CASE Facility:[facility] Start: 09-08-2023 End: 09-08-2023 Patient encounter procedure Barbi Goldberg MD Work Phone: [facility] Comment on above: Herpes zoster withou t complication (Primary Dx) Start: 09-06-2023 Telephone encounter Herminia warner MD Work Phone: [facility] Comment on above: Electronic Communica tion (FAX from [facility] is going to be coming over that needs to be faxed back to them ) Start: 08-20-2023 Refill Herminia Mccurdy Work Phone: [facility] Comment on above: Refill Request Start: 08-07-2023 End: 08-07-2023 Emergency department patient visit Herminia Case MD Work Phone: [facility] ED Comment on above: Bronchitis (Primary Dx); COPD exacerbation (HCC) Start: 08-05-2023 Refill Herminia Mccurdy Work Phone: [facility] Comment on above: Refill Request Start: 07-22-2023 Refill Herminia Mccurdy Work Phone: [facility] Comment on above: Refill Request Start: 07-20-2023 Refill Melva silva PA-C Work Phone: [facility] Comment on above: Refill Request Start: 07-05-2023 ambulatory Herminia Mccurdy Work Phone: [facility] [place] Start: 07-04-2023 Refill Gena Michaels SOUND PRINTER.DENTIST Work Phone: [facility] Comment on above: Refill Request Start: 07-03-2023 Refill Gena Michaels SOUND PRINTER.DENTIST Work Phone: [facility] Comment on above: Refill Request Start: 06-30-2023 Telephone encounter Herminia warner MD Work Phone: [facility] Comment on above: Medication Problem Start: 06-28-2023 ambulatory Herminia Mccurdy Work Phone: [facility] Comment on above: Breo Start: 06-25-2023 Refill Herminia Mccurdy Work Phone: [facility] Comment on above: Refill Request Start: 06-24-2023 Refill Herminia Mccurdy Work Phone: [facility] Comment on above: Refill Request Start: 06-22-2023 ambulatory Herminia Mccurdy Work Phone: [facility] [place] Start: 06-10-2023 Refill Herminia Mccurdy Work Phone: [facility] Comment on above: Refill Request Start: 06-10-2023 End: 06-10-2023 [facility] Herminia Case MD Work Phone: [facility] Comment on above: Moderate episode of recurrent major depressive disorder (HCC) (Primary Dx); Panlobular emphysema (HCC); Chronic respiratory failure with hypoxia (HCC) Start: 05-26-2023 Refill Herminia Mccurdy Work Phone: [facility] Comment on above: Refill Request Start: 05-25-2023 Telephone encounter Herminia warner MD Work Phone: [facility] Comment on above: Orders Start: 05-20-2023 End: 05-20-2023 [facility] Herminia Case MD Work Phone: [facility] Comment on above: Moderate episode of recurrent major depressive disorder (HCC) (Primary Dx); Panlobular emphysema (HCC) Start: 05-19-2023 Telephone encounter Herminia warner MD Work Phone: [facility] Comment on above: Orders Start: 05-18-2023 Home visit Herminia Mccurdy Work Phone: [facility] Comment on above: Age-related osteopor osis with current pathological fracture of left femur, initial encounter (HCC) (Primary Dx) Start: 05-18-2023 Telephone encounter Herminia warner MD Work Phone: [facility] Comment on above: Orders Start: 05-09-2023 Telephone encounter Herminia warner MD Work Phone: [facility] Comment on above: Orders Start: 05-02-2023 End: 05-02-2023 Patient encounter procedure Herminia Case MD Work Phone: [facility] Comment on above: PAUL (generalized anx iety disorder) (Primary Dx); Medication monitoring encounter; Compression fracture of body of thoracic vertebra (HCC); Other closed nondisplaced fracture of proximal end of right humerus with routine healing, subsequent encounter; Chronic respiratory failure with hypoxia (HCC); Panlobular emphysema (HCC); Moderate episode of recurrent major depressive disorder (HCC) Start: 04-29-2023 Telephone encounter Herminia warner MD Work Phone: [facility] Comment on above: Medication Problem Start: 04-27-2023 ambulatory Herminia Mccurdy Work Phone: [facility] Comment on above: Panic attacks Start: 04-21-2023 Telephone encounter Kisha mccurdy SOUND PRINTER - DENTIST Work Phone: [facility] Gynecologic Oncology Start: 04-19-2023 Telephone encounter Herminia warner MD Work Phone: [facility] Comment on above: Orders Start: 03-07-2023 Refill Herminia Mccurdy Work Phone: [facility] Comment on above: Refill Request Start: 02-13-2023 End: 02-18-2023 Evaluation and management of inpatient Lorenzo Orozco MD Work Phone: [facility] Comment on above: Lumbar compression f racture, closed, initial encounter (HCC) (Primary Dx); Fall, initial encounter; Multiple falls; Nondisplaced fracture of neck of left femur (HCC) Start: 02-07-2023 Refill Melva silva PA-C Work Phone: [facility] Comment on above: Refill Request Start: 02-07-2023 Telephone encounter Herminia warner MD Work Phone: [facility] Comment on above: Orders Start: 02-01-2023 ambulatory Agustina Hopson ate [facility] Comment on above: Population Health Na vigation Outreach (/Cologuard reminder ) Start: 01-31-2023 Telephone encounter Herminia warner MD Work Phone: [facility] Comment on above: Orders Start: 01-27-2023 [facility]ulatory [facility]cal [facility] Comment on above: Population Health Na vigation Outreach ([employer] [facility]) Start: 01-24-2023 Telephone encounter Herminia warner MD Work Phone: [facility] Comment on above: Orders Start: 01-21-2023 Telephone encounter Herminia warner MD Work Phone: [facility] Comment on above: Orders Start: 01-17-2023 Telephone encounter Herminia warner MD Work Phone: [facility] Comment on above: Orders Start: 01-14-2023 End: 01-14-2023 Patient encounter procedure Herminia Case MD Work Phone: [facility] Comment on above: Compression fracture of body [...] encounter Herminia warner MD Work Phone: [facility] Comment on above: appointment cancella tion Start: 01-05-2023 Telephone encounter Herminia warner MD Work Phone: [facility] Comment on above: Missed Appointment Start: 12-30-2022 Telephone encounter Herminia warner MD Work Phone: [facility] Comment on above: Orders Start: 12-28-2022 Telephone encounter Herminia warner MD Work Phone: [facility] Comment on above: Orders Start: 12-22-2022 Telephone encounter Herminia warner MD Work Phone: [facility] Comment on above: Orders Start: 12-16-2022 Refill Herminia Mccurdy Work Phone: [facility] Comment on above: Refill Request Start: 12-10-2022 Refill Melva E Free land PA-C Work Phone: [facility] Comment on above: Refill Request Start: 12-09-2022 ambulatory Melva Milian land PA-C Work Phone: [facility] Comment on above: cologuard (cologuard ) Start: 12-09-2022 Telephone encounter Herminia warner MD Work Phone: [facility] Comment on above: Orders Start: 12-07-2022 Home visit Herminia Mccurdy Work Phone: [facility] Comment on above: Age-related osteopor osis with current pathological fracture of left femur with routine healing (Primary Dx) Start: 12-07-2022 Telephone encounter Herminia warner MD Work Phone: [facility] Comment on above: Orders Start: 11-29-2022 Telephone encounter Herminia warner MD Work Phone: [facility] Comment on above: Home Care Start: 11-22-2022 Refill Melva Milian land PA-C Work Phone: [facility] Comment on above: Refill Request Start: 2022 Refill Herminia Mccurdy Work Phone: [facility] Comment on above: Refill Request Start: 11-17-2022 Refill Brando leblanc MD Work Phone: [facility] Comment on above: Refill Request Start: 11-15-2022 Refill Herminia Mccurdy Work Phone: [facility] Comment on above: Refill Request Start: 11-07-2022 ambulatory Herminia Mccurdy Work Phone: [facility] Comment on above: Renewals for my Breo and Flonase Start: 11-06-2022 End: 11-08-2022 Evaluation and management of inpatient Austyn Mccann DO Work Phone: [facility]S TELEMETRY Comment on above: Closed displaced int ertrochanteric fracture of left femur, initial encounter ([facility]) (Primary Dx) Start: 10-27-2022 Telephone encounter Kisha mccurdy SOUND PRINTER - DENTIST Work Phone: [facility] Gynecologic Oncology Start: 10-22-2022 Refill Herminia Mccurdy Work Phone: [facility] Comment on above: Refill Request Start: 10-21-2022 Refill Herminia Mccurdy Work Phone: [facility] Comment on above: Refill Request Start: 10-20-2022 End: 10-20-2022 Office outpatient visit 25 minutes Kisha Pepe SOUND PRINTER - DENTIST Work Phone: [facility] Gynecologic Oncology Comment on above: 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); Encounter for screening mammogram for malignant neoplasm of breast Start: 10-15-2022 Refill Jessica warner SOUND PRINTER.DENTIST Work Phone: [facility] Comment on above: Refill Request Start: 09-15-2022 End: 09-15-2022 Patient encounter procedure Melva Sandoval PA-C Work Phone: [facility] Comment on above: Panlobular emphysema (HCC) (Primary Dx); COPD (chronic obstructive pulmonary disease) with acute bronchitis (HCC); Hyperlipidemia, mixed; Medication monitoring encounter; Screening for colon cancer; Medication management; Chronic midline low back pain without sciatica; DDD (degenerative disc disease), lumbar; Major depression, recurrent, chronic (HCC) Start: 08-17-2022 ambulatory Herminia Mccurdy Work Phone: Internal Medicine [facility] Start: 07-29-2022 Refill Herminia Mccurdy Work Phone: [facility] Comment on above: Refill Request Start: 07-27-2022 Refill Herminia Mccurdy Work Phone: [facility] Comment on above: Refill Request Start: 07-14-2022 ambulatory Herminia Mccurdy Work Phone: Internal Medicine [facility] Start: 07-02-2022 Telephone encounter Herminia warner MD Work Phone: [facility] Comment on above: Patient Update (Rupinder wilsoned her home OT visit today due to illness ) Start: 07-01-2022 Telephone encounter Herminia warner MD Work Phone: [facility] Comment on above: Orders Start: 06-30-2022 Telephone encounter Herminia warner MD Work Phone: [facility] Comment on above: Medication Problem; Patient Update Start: 06-22-2022 ambulatory Herminia Mccurdy Work Phone: [facility] Comment on above: Sinus Problem Start: 06-22-2022 Refill Melva lovell PA-C Work Phone: [facility] Comment on above: Med Change Request Start: 06-22-2022 Telephone encounter Herminia warner MD Work Phone: [facility] Comment on above: Orders Start: 06-14-2022 Telephone encounter Herminia warner MD Work Phone: [facility] Comment on above: Orders Start: 06-03-2022 End: 06-03-2022 ambulatory Herminia Case MD Work Phone: [facility] Comment on above: Other closed nondisp laced [...] with patient Herminia Case MD Work Phone: [facility] Start: 06-01-2022 Telephone encounter Herminia warner MD Work Phone: [facility] Comment on above: Orders Start: 05-31-2022 Telephone encounter Herminia warner MD Work Phone: [facility] Comment on above: Home Care Management Start: 05-21-2022 End: 05-24-2022 Emergency department patient visit Martha Flores MD Work Phone: [facility] Comment on above: Fall, initial encoun ter (Primary Dx); Facial laceration, initial encounter; Closed fracture of neck of right humerus, initial encounter; Humeral head fracture, right, closed, initial encounter Start: 05-06-2022 Refill Donovan montes MD Work Phone: [facility] Comment on above: Refill Request Start: 04-21-2022 End: 04-21-2022 Office outpatient visit 15 minutes Sally Alvarez CNP Work Phone: [facility] [place] [employer] [employer] [facility] [facility] Comment on above: 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) Start: 04-19-2022 Refill Herminia Mccurdy Work Phone: [facility] Comment on above: Refill Request Start: 04-07-2022 Refill Herminia Mccurdy Work Phone: [facility] Comment on above: Refill Request Start: 04-06-2022 ambulatory [facility] Comment on above: Population Health Na vigation Outreach [facility] Start: 03-08-2022 Refill Melva lovell PA-C Work Phone: [facility] Comment on above: Refill Request Start: 03-05-2022 End: 03-05-2022 ambulatory Melva Sandoval PA-C Work Phone: [facility] Comment on above: COPD (chronic obstru ctive pulmonary disease) with acute bronchitis (HCC) (Primary Dx); DDD (degenerative disc disease), lumbar; Major depression, recurrent, chronic (HCC) Start: 03-05-2022 End: 03-05-2022 Telemedicine consultation with patient Melva Sandoval PA-C Work Phone: [facility] Start: 03-05-2022 Telephone encounter Melva Sandoval PA-C Work Phone: [facility] Comment on above: Appointment Start: 03-03-2022 Telephone encounter Herminia warner MD Work Phone: [facility] Comment on above: Orders Start: 02-16-2022 ambulatory Herminia Mccurdy Work Phone: [facility] Start: 02-08-2022 ambulatory Herminia Mccurdy Work Phone: [facility] Comment on above: Muscle relaxer Refill Request Start: 02-01-2022 ambulatory Herminia Mccurdy Work Phone: [facility] Comment on above: Nurse Triage Call Start: 01-29-2022 ambulatory Macarena leblanc SOUND PRINTER.DENTIST Work Phone: [facility] Comment on above: Other acute sinusiti s, recurrence not specified (Primary Dx) Start: 01-13-2022 Refill Herminia Mccurdy Work Phone: [facility] Comment on above: Refill Request Start: 12-09-2021 ambulatory Herminia Case [facility] Start: 12-08-2021 ambulatory Herminia Mccurdy Work Phone: [facility] Comment on above: Breo Start: 11-26-2021 Refill Herminia Mccurdy Work Phone: [facility] Comment on above: Refill Request Start: 10-27-2021 Refill Melva PARRYC Work Phone: [facility] Comment on above: Refill Request Start: 10-18-2021 Refill Herminia Mccurdy Work Phone: [facility] Comment on above: Refill Request Start: 10-14-2021 ambulatory Herminia Evie [facility] Start: 10-14-2021 End: 10-14-2021 Subsequent hospital visit by physician Ziyad Menendez MD Work Phone: [facility] Med Onc Comment on above: 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); Abnormal chest CT; Other specified complication of vascular prosthetic devices, implants and grafts, initial encounter (HCC); Poor venous access Malignant neoplasm o f exocervix (HCC); Abnormal findings on diagnostic imaging of other specified body structures; Abnormal chest CT Start: 10-13-2021 Telephone encounter Herminia warner MD Work Phone: [facility] Comment on above: Orders ([facility]-Oxy gen order.) Start: 08-26-2021 Refill Jessica warner SOUND PRINTER.DENTIST Work Phone: [facility] Comment on above: Refill Request Start: 08-07-2021 Telephone encounter Herminia warner MD Work Phone: [facility] Comment on above: Patient Question Start: 08-06-2021 End: 08-06-2021 Patient encounter procedure Herminia Case MD Work Phone: [facility] Comment on above: Panlobular emphysema (HCC) (Primary [...] encounter Herminia warner MD Work Phone: [facility] Comment on above: Orders ([facility] ) Start: 08-04-2021 ambulatory Herminia Case [facility] Start: 07-28-2021 Refill Jessica warner SOUND PRINTER.DENTIST Work Phone: [facility] Comment on above: Refill Request Start: 07-01-2021 Refill Melva lovell PA-C Work Phone: [facility] Comment on above: Refill Request Start: 02-18-2021 ambulatory [facility] Start: 12-26-2020 ambulatory Herminia Case [facility] Start: 12-26-2020 End: 12-26-2020 Subsequent hospital visit by physician Ziyad Menendez MD Work Phone: [facility] Med Onc Comment on above: 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); Poor venous access Malignant neoplasm o f exocervix (HCC); Lung nodule seen on imaging study Start: 10-16-2020 End: 10-16-2020 Emergency department patient visit Herminia Case MD Work Phone: [facility] Comment on above: Closed fracture of c occyx, initial encounter (HCC) (Primary Dx); Contusion of right elbow, initial encounter Start: 09-24-2020 End: 09-24-2020 Subsequent hospital visit by physician Ziyad Menendez MD Work Phone: [facility] CT Scan Comment on above: Arrived Poor venous access ( Primary Dx); Malignant neoplasm of exocervix (HCC) Start: 06-09-2020 End: 06-09-2020 Subsequent hospital visit by physician Ziyad Menendez Work Phone: [facility] Comment on above: 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); Poor venous access Start: 06-06-2020 End: 06-06-2020 Subsequent hospital visit by physician Ziyad Menendez Work Phone: [facility] CT Scan Comment on above: Abnormal findings on diagnostic imaging of other specified body structures; Abnormal CT of the chest Start: 03-16-2020 End: 03-16-2020 Emergency department patient visit Tani Madeleine Joseph Work Phone: [facility] ED Comment on above: COPD exacerbation (H CC) (Primary Dx); Bronchitis Start: 03-10-2020 End: 03-10-2020 Subsequent hospital visit by physician Ziyad Menendez Work Phone: [facility] CT Scan Comment on above: Malignant [...] visit by physician Ziyad Menendez Work Phone: [facility] Comment on above: Poor venous access ( [...] visit by physician Ziyad Menendez Work Phone: [facility] Comment on above: Poor venous access ( [...] visit by physician Burke Diezer Work Phone: [facility] Start: 12-26-2019 End: 12-26-2019 Subsequent hospital visit by physician Burke Diezer Work Phone: [facility] Start: 12-26-2019 End: 12-26-2019 Subsequent hospital visit by physician Burke Diezer Work Phone: [facility] Start: 12-19-2019 End: 12-20-2019 Subsequent hospital visit by physician Ziyad Menendez Work Phone: [facility] Cath & IR Lab Comment on above: Malignant neoplasm o f exocervix (HCC) Start: 12-11-2019 End: 12-11-2019 Subsequent hospital visit by physician Burke Washburn Work Phone: [facility] Start: 11-21-2019 End: 11-24-2019 Evaluation and management of inpatient Ray Vaz Dharmesh Work Phone: [facility] 4S TELEMETRY Comment on above: Right arm weakness ( Primary Dx); Pulmonary emphysema, unspecified emphysema type (HCC) Start: 11-10-2019 End: 11-10-2019 Subsequent hospital visit by physician Herminia Case Work Phone: [facility] Comment on above: Leg swelling Start: 11-10-2019 End: 11-10-2019 Subsequent hospital visit by physician Tani Joseph Work Phone: [facility] Ultrasound Start: 11-09-2019 End: 11-09-2019 Emergency department patient visit Tani Joseph Work Phone: [facility] Comment on above: Leg swelling (Primar y Dx) Start: 11-05-2019 End: 11-05-2019 Subsequent hospital visit by physician Ziyad Menendez Work Phone: [facility] Pre-Admit Testing Comment on above: Pre-op testing (Prim tom Dx) Start: 10-27-2019 End: 10-27-2019 Emergency department patient visit Ankit Zaragoza Work Phone: [facility] Comment on above: Compression fracture of L3 lumbar vertebra, sequela (Primary Dx); Acute exacerbation of chronic low back pain Start: 10-21-2019 End: 10-21-2019 Emergency department patient visit Jaspreet Otto Work Phone: [facility] Comment on above: Compression fracture of lumbar vertebra, initial encounter, unspecified lumbar vertebral level (HCC) (Primary Dx) Start: 08-02-2019 End: 08-04-2019 Evaluation and management of inpatient Joanie Lisa ClemonsSiena Work Phone: [facility] TELEMETRY Procedures Date Procedure Procedure Detail [...] by MILANA with non-probe detection Leann Cross SOUND PRINTER - DENTIST Work Phone: Start: 01-16-2025 Smr prim src gram/gi emsa stain bct fungi/cell Leann Cross SOUND PRINTER - DENTIST Work Phone: Start: 01-16-2025 Basic metabolic pane l calcium total Ping Luttmann DO Work Phone: Start: 01-15-2025 Basic metabolic pane l calcium total Ping Luttmann DO Work Phone: Start: 01-15-2025 Blood gases any comb ination ph pco2 po2 co2 hco3 Leola Douglass SOUND PRINTER - [facility] Work Phone: Start: 01-14-2025 Blood gases [...] by MILANA with non-probe detection Leann Cross SOUND PRINTER - DENTIST Work Phone: Start: 08-01-2024 Smr prim src gram/gi emsa stain bct fungi/cell Leann Cross SOUND PRINTER - DENTIST Work Phone: Start: 07-31-2024 Ct abdomen & [...] Phone: Start: 11-07-2022 OXYGEN THERAPY Ray Mendez SOUND PRINTER - NUTRITION HELPER Work Phone: Start: 11-07-2022 FL GUIDANCE OR [...] in Cervix by Cyto stain Kisha Pepe SOUND PRINTER - DENTIST Work Phone: Start: 09-15-2022 Blood count complete [...] spine lumbosac ral 2/3 views Lauren Nelda SOUND PRINTER - DENTIST Work Phone: Start: 09-24-2020 Ct thorax w/contrast [...] Work Phone: Start: 11-21-2019 Oxygen therapy [[facility]] Ray Barroso Work Phone: Start: 11-21-2019 Ecg routine ecg w/le ast 12 lds w/i&r Ray Barroso Work Phone: Start: 11-21-2019 Gluc bld gluc mntr d ev cleared fda spec home use Unknown Provider Result Start: 11-18-2019 Microscopic examinat ion of blood, culture Comment on above: Order Comment: Speci men Source Comment:Blood Performed By: #### C /BLT ####[facility] [email or web address] [address] [id number] Start: 11-07-2019 H/O: hysterectomy S/P hysterectomy C venkat Rocha SOUND PRINTER - DENTIST Work Phone: Start: 11-06-2019 H/O: hysterectomy S/P [...] Screening for malign ant neoplasm of cervix [facility] Start: 09-16-2027 Lipid 1996 panel - S soniya or Plasma Lipid Screening [facility] Start: 09-16-2027 Lipid panel Lipid Screening [facility] Start: 09-16-2027 LIPID SCREEN LIPID SCREEN [facility] Start: 08-09-2027 Diabetes Screening Diabetes Screenin [facility] Start: 07-31-2027 Diabetes Screening Diabetes Screenin [facility] Start: 04-27-2027 Diabetes Screening Diabetes Screenin [facility] Start: 09-21-2026 Diabetes Screening Diabetes Screenin g [facility] Start: 08-08-2026 DTaP/Tdap/Td vaccine (2 - Td or Tdap) DTaP/Tdap/Td vaccine (2 - Td or Tdap) [facility] Start: 08-08-2026 DTaP/Tdap/Td vaccine (2 - Td) DTaP/Tdap/Td vaccine (2 - Td) [place], [place] Start: 08-08-2026 DTaP/Tdap/Td Vaccine s (2 - Td or Tdap) DTaP/Tdap/Td Vaccines (2 - Td or Tdap) [facility] Start: 08-08-2026 Urine microalbumin profile [facility] Start: 08-06-2026 Diabetes Screening Diabetes Screenin g [facility] Start: 02-18-2026 Diabetes Screening Diabetes Screenin g [facility] Start: 11-20-2025 Screening for malign ant neoplasm of lung Lung Cancer Screening [facility] Start: 11-08-2025 Diabetes Screening Diabetes Screenin [facility] Start: 10-20-2025 Screening for malign ant neoplasm of cervix Pap Smear [facility] Start: 09-15-2025 DIABETES SCREEN DIABETES SCREEN [facility] Start: 09-15-2025 Diabetes Screening Diabetes Screenin [facility] Start: 07-30-2025 Annual PCP Team Shellfish Shucker kyrie Disease Visit Annual PCP Team Chronic Disease Visit [facility] Start: 06-06-2025 Annual PCP Team Shellfish Shucker kyrie Disease Visit Annual PCP Team Chronic Disease Visit [facility] Start: 05-02-2025 Annual PCP Team Shellfish Shucker kyrie Disease Visit Annual PCP Team Chronic Disease Visit [facility] Start: 04-05-2025 End: 04-05-2025 Patient encounter procedure 04/05/2025 2:30 PM EST Office Visit [facility] Pulmonary and Sleep Medicine [facility] [address] [place] [address] Elyssa Tesfaye NP [address] [place] [address] [facility] Pulmonary and Sleep Medicine [facility] Start: 04-02-2025 End: 04-02-2025 Patient encounter procedure 04/02/2025 11:30 AM EST Appointment [facility] CT Imaging [address] [place] [id number] Elyssa Tesfaye, LEONELA [address] [place] [address] [facility] [address] Imaging Start: 03-30-2025 End: 12-28-2025 CT Chest WO contrast CT chest wo IV contrast Imaging Routine Pulmonary nodule Expected: 03/30/2025, Expires: 12/28/2025 [facility] Work Phone: Comment on above: Expected: 03/30/2025 , Expires: 12/28/2025 Start: 02-25-2025 End: 02-25-2025 Patient encounter procedure 02/25/2025 12:00 PM EST Appointment [facility] Pulm Function Test [address] [place] [id number] Elyssa Tesfaye, LEONELA [address] [place] [address] [facility] Pulm Function Test Start: 02-06-2025 End: 02-06-2025 Patient encounter procedure 02/06/2025 10:40 AM EST Office Visit [facility] Pulmonary and Sleep [facility] [address] [place] [address] Sofia Marina APRN - DENTIST [address] [place] [address] [facility] Pulmonary and Sleep Medicine [facility] Start: 12-29-2024 Annual PCP Team Shellfish Shucker kyrie Disease Visit Annual PCP Team Chronic Disease Visit [facility] Start: 12-28-2024 End: 12-28-2025 Complete PFT pre and post bronchodilator with FENO Complete PFT pre and post bronchodilator with FENO PFT Routine Centrilobular emphysema (HCC) Expected: 12/28/2024 (Approximate), Expires: 12/28/2025 [facility] Comment on above: Expected: 12/28/2024 (Approximate), Expires: 12/28/2025 Start: 12-04-2024 Subsequent hospital visit by physician 12/04/2024 7:45 AM EDT Hospital Encounter [facility] [address] [place] [phone] Elyssa Tesfaye, LEONELA [address] [place] [address] [facility] Start: 11-26-2024 End: 11-26-2024 Patient encounter procedure 11/26/2024 1:30 PM EDT Office Visit [facility] Pulmonary and Sleep Medicine [facility] [address] [place] [address] Elyssa Tesfaye NP [address] [place] [address] [facility] Pulmonary [facility] Sleep Medicine [facility] Start: 11-20-2024 End: 11-20-2024 Patient encounter procedure 11/20/2024 3:45 PM EDT Appointment [facility] CT [address] [place] [address] Elyssa Tesfaye NP [address] [place] [address] [facility] [address] Start: 11-20-2024 End: 08-20-2025 CT Chest WO contrast [facility] Work Phone: Comment on above: Expected: 11/20/2024 , Expires: 08/20/2025 Once for 1 Occurrenc es starting 11/20/2024 until 11/20/2024 Start: 2024 COVID-19 Vaccine ( season) COVID-19 Vaccine ( season) [facility] Start: 2024 Influenza vaccination C [facility] Start: 10-24-2024 End: 10-24-2024 Patient encounter procedure 10/24/2024 10:00 AM EDT Appointment [facility] PFT [address] [place] [phone] Elyssa Tesfaye NP [address] [place] [address] [facility] PFT Start: 10-18-2024 End: 10-18-2024 ambulatory 10/18/2024 3:30 PM EDT Infusion [facility] [address] [place] [phone] Ziyad Menendez MD [address] [facility] [address] [place] [address] [facility] Start: 10-15-2024 Screening for malign ant neoplasm of lung Lung Cancer Screening [facility] Start: 10-11-2024 HPV TESTING HPV TESTING [facility] Start: 10-11-2024 PAP TESTING PAP TESTING [facility] Start: 09-24-2024 End: 09-24-2024 Patient encounter procedure 09/24/2024 10:00 AM EDT Office Visit [facility] Gynecologic Oncology - [place] [address] [place] [address] Radha Orellana APRN - DENTIST [address] [place] [address] [facility] [place] Start: 09-17-2024 Screening for malign ant neoplasm of cervix [facility] Start: 09-07-2024 Annual PCP Team Shellfish Shucker kyrie Disease Visit Annual PCP Team Chronic Disease Visit [facility] Start: 09-04-2024 End: 09-04-2024 ambulatory 09/04/2024 2:30 PM EDT Infusion [facility] [address] [place] [phone] [facility] Start: 08-20-2024 End: 08-20-2025 Complete PFT pre and post bronchodilator with FENO Complete PFT pre and post bronchodilator with FENO PFT Routine Chronic obstructive pulmonary disease with acute lower respiratory infection (HCC) Centrilobular emphysema (HCC) Expected: 08/20/2024 (Approximate), Expires: 08/20/2025 [facility] Comment on above: Expected: 08/20/2024 (Approximate), Expires: 08/20/2025 Start: 08-20-2024 End: 08-20-2024 Patient encounter procedure 08/20/2024 10:30 AM EDT Office Visit [facility] Pulmonary and Sleep Medicine [facility] [address] [place] [address] Elyssa Tesfaye NP [address] [place] [address] [facility] Pulmonary and Sleep Medicine [facility] Start: 07-30-2024 End: 07-30-2024 Patient encounter procedure 07/30/2024 3:00 PM EDT Office Visit Family Medicine [place] [address] [address] Herminia Case MD [address] [place] [address] back pain [facility] [place] Comment on above: back pain Start: 06-30-2024 End: 09-29-2024 CBC W Auto Differential panel - Blood COMPLETE BLOOD COUNT AND DIFFERENTIAL Lab Routine Hyperlipidemia, mixed Expected: 06/30/2024 (Approximate), Expires: 09/29/2024 [facility] Comment on above: Expected: 06/30/2024 (Approximate), Expires: 09/29/2024 Start: 06-30-2024 End: 09-29-2024 Hemoglobin A1c in Blood HEMOGLOBIN A1C Lab Routine Hyperglycemia Expected: 06/30/2024 (Approximate), Expires: 09/29/2024 [facility] Work Phone: Comment on above: Expected: 06/30/2024 (Approximate), Expires: 09/29/2024 Start: 06-30-2024 End: 09-29-2024 Hepatic function 2000 panel - Serum or Plasma HEPATIC FUNCTION PNL Lab Routine Hyperlipidemia, mixed Expected: 06/30/2024 (Approximate), Expires: 09/29/2024 [facility] Comment on above: Expected: 06/30/2024 (Approximate), Expires: 09/29/2024 Start: 06-30-2024 End: 09-29-2024 Lipid 1996 panel - Serum or Plasma LIPID PANEL BASIC Lab Routine Hyperlipidemia, mixed Expected: 06/30/2024 (Approximate), Expires: 09/29/2024 [facility] Comment on above: Expected: 06/30/2024 (Approximate), Expires: 09/29/2024 Start: 06-09-2024 Annual PCP Team Shellfish Shucker kyrie Disease Visit Annual PCP Team Chronic Disease Visit [facility] Start: 06-06-2024 End: 06-06-2024 ambulatory 06/06/2024 10:20 AM EDT [place] [address] [address] Herminia Case MD [address] [place] [address] discuss assisted living/fdc [facility] Comment on above: discuss assisted raul ing/fdc Start: 05-19-2024 Annual PCP Team Shellfish Shucker kyrie Disease Visit Annual PCP Team Chronic Disease Visit [facility] Start: 05-02-2024 Annual PCP Team Shellfish Shucker kyrie Disease Visit Annual PCP Team Chronic Disease Visit [facility] Start: 03-22-2024 Depression Monitoring Depression [facility] Start: 03-21-2024 Advance Directive Discussion Advance Directive Discussion [facility] Start: 03-21-2024 Medicare Advantage Annual Wellness Visit Medicare Advantage Annual Wellness Visit [facility] Start: 03-11-2024 Annual PCP Team Shellfish Shucker kyrie Disease Visit Annual PCP Team Chronic Disease Visit [facility] Start: 01-15-2024 Annual PCP Team Shellfish Shucker kyrie Disease Visit Annual PCP Team Chronic Disease Visit [facility] Start: 12-08-2023 LIPID SCREEN LIPID SCREEN [facility] Start: 11-20-2023 Covid-19 Vaccine ( season) Covid-19 Vaccine ( season) [facility] Start: 11-20-2023 Covid-19 Vaccine ( season) Covid-19 Vaccine ( season) [facility] Start: 11-20-2023 Influenza vaccination C [facility] Start: 09-18-2023 Influenza vaccination Influenza Vacc ine (#1) [facility] Comment on above: Postponed from 11/19 (Declined at this time) Start: 09-16-2023 ANNUAL PCP TEAM WEATHERIZATION OPERATIONS MANAGER KYRIE DISEASE VISIT ANNUAL PCP TEAM CHRONIC DISEASE VISIT [facility] Start: 09-16-2023 Zoledronic acid therapy ALPHA- 1 ANTITRYPSIN DEFICIENCY SCREENING [facility] Comment on above: Postponed from 11/19 (Declined at this time) Start: 09-13-2023 DIABETES SCREEN DIABETES SCREEN [facility] Start: 09-08-2023 End: 09-08-2023 Patient encounter procedure 09/08/2023 3:20 PM EDT Office Visit [facility] [address] [address] Barbi Goldberg MD [address] [place] [address] shaziarae [facility] Comment on above: shaziarae Start: 08-24-2023 End: 08-24-2023 Follow-up encounter 08/24/2023 3:00 PM EDT [facility] [address] [place] [address] Melva Juárez PAKimC [address] [place] [address] Follow up visit [facility] Comment on above: Follow up visit Start: 08-16-2023 End: 08-16-2023 Patient encounter procedure 08/16/2023 10:00 AM EDT Office Visit [address] [address] Herminia Case MD [address] [place] [address] sick [facility] Comment on above: sick Start: 08-03-2023 End: 08-03-2023 Follow-up encounter 08/03/2023 11:20 AM EDT [address] [address] Herminia Case MD [address] [place] [address] Follow up [facility] Comment on above: Follow up Start: 07-22-2023 End: 07-22-2023 Follow-up encounter 07/22/2023 1:00 PM EDT [address] [address] Herminia Case MD [address] [place] [address] 6 week follow up-anxiety and depression [facility] Comment on above: 6 week follow up-anx iety and depression Start: 07-05-2023 End: 10-04-2023 Lipid 1996 panel - Serum or Plasma LIPID PANEL BASIC Lab Routine Medication management Expected: 07/05/2023, Expires: 10/04/2023 [facility] Work Phone: Comment on above: Expected: 07/05/2023 , Expires: 10/04/2023 Start: 06-04-2023 ANNUAL PCP TEAM WEATHERIZATION OPERATIONS MANAGER KYRIE DISEASE VISIT ANNUAL PCP TEAM CHRONIC DISEASE VISIT [facility] Start: 06-04-2023 COVID-19 VACCINE (#1) COVID-19 VACCI NE (#1) [facility] Comment on above: Postponed from 05/19 (Declined at this time) Start: 06-04-2023 SHINGRIX VACCINE (2 of 2) SHINGRIX VACCINE (2 of 2) [facility] Comment on above: Postponed from 12/05 (Declined at this time) Start: 05-02-2023 End: 08-01-2023 PAIN PANEL, UR QUANT [facility] Work Phone: Comment on above: Expected: 05/02/2023 , Expires: 08/01/2023 Start: 04-22-2023 End: 04-22-2023 Patient encounter procedure [facility] Gynecologic Oncology Start: 03-21-2023 Advance Directive Discussion Advance Directive Discussion [facility] Start: 03-21-2023 Medicare Advantage Annual Wellness Visit Medicare Advantage Annual Wellness Visit [facility] Start: 03-09-2023 End: 03-09-2023 Patient encounter procedure 03/09/2023 11:15 AM EST Office Visit [facility] [address] [place] [address] Freddy Person MD [address] [place] [id number] [facility] Start: 03-05-2023 ANNUAL PCP TEAM WEATHERIZATION OPERATIONS MANAGER KYRIE DISEASE VISIT ANNUAL PCP TEAM CHRONIC DISEASE VISIT [facility] Start: 11-20-2022 ANNUAL PCP TEAM WEATHERIZATION OPERATIONS MANAGER KYRIE DISEASE VISIT ANNUAL PCP TEAM CHRONIC DISEASE VISIT [facility] Start: 2022 Covid-19 Vaccine (1 - 2023-24 season) Covid-19 Vaccine () [facility] Start: 2022 Influenza vaccination [facility] Start: 11-17-2022 End: 11-17-2022 Patient encounter procedure 11/17/2022 9:00 AM EDT Office Visit [facility] [address] [place] [address] Nabeel Tran MD [address] [place] [address] [facility] Start: 11-10-2022 End: 11-10-2022 Patient encounter procedure 11/10/2022 3:30 PM EDT Appointment [facility] CT Imaging [address] [place] [phone] Kisha Pepe APRN - DENTIST [address] [facility] [address] [place] [address] [facility] [address] Imaging Start: 10-27-2022 End: 10-27-2022 Patient encounter procedure 10/27/2022 10:40 AM EDT Office Visit [facility] [address] [place] [address] Nabeel Tran MD [address] [place] [address] [facility] Start: 10-24-2022 Screening for malign ant neoplasm of cervix Cervical cancer screen [facility] [place] Start: 10-20-2022 End: 10-21-2023 CT Chest WO contrast CT chest wo IV contrast Imaging Routine Malignant neoplasm of exocervix (HCC) Expected: 10/20/2022, Expires: 10/21/2023 [facility] [email or web address] [facility] Work Phone: Comment on above: Expected: 10/20/2022 , Expires: 10/21/2023 Start: 10-20-2022 End: 12-21-2023 DBT Breast - bilateral screening Bilateral screening mammogram with tomosynthesis Imaging Routine Encounter for screening mammogram for malignant neoplasm of breast Expected: 10/20/2022, Expires: 12/21/2023 [facility] Comment on above: Expected: 10/20/2022 , Expires: 12/21/2023 Start: 10-20-2022 End: 10-20-2022 Patient encounter procedure 10/20/2022 Office Visit Gynecologic Oncology Afshin, KishaDB - DENTIST [address] [facility] [place] [address] [facility] Start: 10-14-2022 Influenza vaccination LUNG CANCER SC REENING [facility] Start: 10-14-2022 Screening for malign ant neoplasm of lung Lung Cancer Screening [facility] Start: 09-17-2022 Influenza vaccination INFLUENZA (#1) [facility] Comment on above: Postponed from 11/19 (Declined at this time) Start: 08-17-2022 End: 10-17-2022 Lipid 1996 panel - Serum or Plasma LIPID PANEL BASIC Lab Routine Medication management Expected: 08/17/2022, Expires: 10/17/2022 [facility] Work Phone: Comment on above: Expected: 08/17/2022 , Expires: 10/17/2022 Start: 08-06-2022 ANNUAL PCP TEAM WEATHERIZATION OPERATIONS MANAGER KYRIE DISEASE VISIT ANNUAL PCP TEAM CHRONIC DISEASE VISIT [facility] Start: 05-06-2022 ANNUAL PCP TEAM WEATHERIZATION OPERATIONS MANAGER KYRIE DISEASE VISIT ANNUAL PCP TEAM CHRONIC DISEASE VISIT [facility] Start: 03-21-2022 ADVANCE DIRECTIVE DISCUSSION ADVANCE DIRECTIVE DISCUSSION [facility] Start: 03-17-2022 End: 03-17-2022 Patient encounter procedure 03/17/2022 Office Visit Gynecologic Oncology Ziyad Menendez MD [address] [facility] [address] [place], [place] [id number] [facility] [place] [facility] Start: 03-11-2022 Pneumococcal 0-64 ye ars Vaccine (2 of 2 - PPSV23) Pneumococcal 0-64 years Vaccine (2 of 2 - PPSV23) [facility] Work Phone: Start: 03-11-2022 Pneumococcal 0-64 ye ars Vaccine (2 of 4 - PPSV23) Pneumococcal 0-64 years Vaccine (2 of 4 - PPSV23) [facility] Work Phone: Start: 02-16-2022 End: 04-18-2022 CBC panel - Blood by Automated count CBC Lab Routine Medication management Expected: 02/16/2022, Expires: 04/18/2022 [facility] Work Phone: Comment on above: Expected: 02/16/2022 , Expires: 04/18/2022 Start: 02-16-2022 End: 04-18-2022 SCHEDULE LAB TESTING SCHEDULE LAB TESTING Lab Routine Expected: 02/16/2022, Expires: 04/18/2022 [facility] Work Phone: Comment on above: Expected: 02/16/2022 , Expires: 04/18/2022 Start: 12-26-2021 Influenza vaccination LUNG CANCER SC REENING [facility] Start: 12-09-2021 End: 12-09-2021 Patient encounter procedure 12/09/2021 Appointment Infusion Therapy [facility] Start: 2021 ADVANCE DIRECTIVE DISCUSSION ADVANCE DIRECTIVE DISCUSSION [facility] Start: 2021 BONE DENSITY BONE DENSITY [facility] Start: 2021 Bone Density Screening Bone Density Screening [facility] Start: 2021 Influenza vaccination C [facility] Start: 2021 Screening for osteoporosis Bone Density Screening [facility] Start: 10-27-2021 End: 12-27-2021 CBC panel - Blood by Automated count CBC Lab Routine Medication management Expected: 10/27/2021, Expires: 12/27/2021 [facility] Work Phone: Comment on above: Expected: 10/27/2021 , Expires: 12/27/2021 Start: 10-27-2021 End: 12-27-2021 SCHEDULE LAB TESTING SCHEDULE LAB TESTING Lab Routine Expected: 10/27/2021, Expires: 12/27/2021 [facility] Work Phone: Comment on above: Expected: 10/27/2021 , Expires: 12/27/2021 Start: 09-24-2021 Screening for malign ant neoplasm of lung Low dose CT lung screening [facility] Work Phone: Start: 09-15-2021 COLORECTAL CANCER SCREENING COLORECTAL CANCER SCREENING [facility] Comment on above: Postponed from 11/19 (Declined at this time) Start: 09-15-2021 COVID-19 VACCINE (#1) COVID-19 VACCI NE (#1) [facility] Comment on above: Postponed from 11/19 (Declined at this time) Start: 09-15-2021 COVID-19 VACCINE (1) COVID-19 VACCIN E (1) [facility] Comment on above: Postponed from 11/19 (Declined at this time) Start: 09-15-2021 SHINGRIX VACCINE (2 of 2) SHINGRIX VACCINE (2 of 2) [facility] Comment on above: Postponed from 12/05 (Declined at this time) Start: 08-06-2021 End: 10-06-2021 CBC W Auto Differential panel - Blood CBC + DIFF Lab Routine Panlobular emphysema (HCC) Chronic respiratory failure with hypoxia (HCC) Expected: 08/06/2021, Expires: 10/06/2021 [facility] Work Phone: Comment on above: Expected: 08/06/2021 , Expires: 10/06/2021 Start: 08-06-2021 End: 10-06-2021 Comprehensive metabolic 2000 panel - Serum or Plasma COMP METABOLIC PANEL Lab Routine Panlobular emphysema (HCC) Chronic respiratory failure with hypoxia (HCC) Expected: 08/06/2021, Expires: 10/06/2021 [facility] Work Phone: Comment on above: Expected: 08/06/2021 , Expires: 10/06/2021 Start: 08-06-2021 End: 10-06-2021 LIPID PANEL BASIC LIPID PANEL BASIC Lab Routine Screening for lipid disorders Expected: 08/06/2021, Expires: 10/06/2021 [facility] Work Phone: Comment on above: Expected: 08/06/2021 , Expires: 10/06/2021 Start: 08-06-2021 End: 10-06-2021 PAIN PANEL, UR QUANT PAIN PANEL, UR QUANT Lab Routine Medication monitoring encounter Expected: 08/06/2021, Expires: 10/06/2021 [facility] Work Phone: Comment on above: Expected: 08/06/2021 , Expires: 10/06/2021 Start: 08-06-2021 End: 10-06-2021 VITAMIN D 25 HYDROXY VITAMIN D 25 HYDROXY Lab Routine Vitamin D deficiency Expected: 08/06/2021, Expires: 10/06/2021 [facility] Work Phone: Comment on above: Expected: 08/06/2021 , Expires: 10/06/2021 Start: 06-06-2021 Screening for malign ant neoplasm of lung Low dose CT lung screening [facility] Work Phone: Start: 02-06-2021 End: 02-06-2021 Patient encounter procedure 02/06/2021 Appointment Infusion Therapy [facility] Start: 11-23-2020 Statin Therapy Statin Therapy [place], [place] Start: 11-21-2020 Lipid panel [facility] Start: 2020 Influenza vaccination Flu vaccine (# 1) [facility] Work Phone: Start: 10-13-2020 End: 10-13-2020 Office Visit [facility] [place] [facility] Start: 08-08-2020 End: 08-08-2020 Appointment 08/08/2020 Appointment Infusion Therapy [facility] Start: 07-01-2020 End: 07-01-2020 Telemedicine 07/01/2020 Telemedicine Cardiology Nell Padilla MD [address] [place] [address] [facility] Start: 06-13-2020 End: 06-13-2020 Appointment 06/13/2020 Appointment Infusion Therapy [facility] Start: 06-09-2020 End: 06-09-2020 Office Visit 06/09/2020 Office Visit Gynecologic Oncology Ziyad Menendez MD [address] [place] [address] [phone] [facility] [place] [facility] Start: 04-15-2020 Lipid panel Lipid screen [facility] Start: 03-28-2020 End: 03-28-2020 Virtual Visit 03/28/2020 Virtual Visit Palliative Care David Pollack, DO [address] [phone] [facility] Start: 03-17-2020 End: 03-17-2020 Office Visit [facility] [place] [facility] Comment on above: 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) Start: 03-10-2020 End: 03-10-2020 Appointment 03/10/[address] [facility] [address] Scan Start: 02-22-2020 End: 02-22-2020 Appointment [facility] Start: 02-21-2020 End: 02-21-2020 Office Visit [facility] [place] [facility] Start: 02-08-2020 End: 02-08-2020 Appointment [facility] Start: 02-07-2020 End: 02-07-2020 Appointment 02/07/2020 Appointment Infusion Therapy [facility] Start: 02-01-2020 End: 02-01-2020 Appointment [facility] Start: 01-31-2020 End: 01-31-2020 Appointment [facility] Start: 01-25-2020 End: 01-25-2020 Appointment [facility] Start: 01-24-2020 End: 01-24-2020 Appointment 01/24/2020 Appointment Infusion Therapy [facility] Start: 01-18-2020 End: 01-18-2020 Appointment 01/18/2020 Appointment Infusion Therapy [facility] Start: 01-17-2020 End: 01-17-2020 Appointment [facility] Start: 12-13-2019 End: 12-13-2019 Office Visit 12/13/2019 Office Visit Gynecologic Oncology Ziyad Menendez MD [address] [place] [address] [phone] [facility] [place] [facility] Start: 12-07-2019 End: 12-07-2019 Office Visit 12/07/2019 Office Visit Gynecologic Oncology Ziyad Menendez MD [address] [place] [address] [facility] [place] [facility] Start: 12-06-2019 Shingles Vaccine (2 of 2) Shingles Vaccine (2 of 2) [facility] Start: 12-06-2019 SHINGRIX VACCINE (2 of 2) SHINGRIX VACCINE (2 of 2) [facility] Start: 12-06-2019 Zoster Vaccines (2 of 2) Zoster Vacc otto (2 of 2) [facility] Start: 11-22-2019 End: 11-22-2019 Office Visit 11/22/2019 Office Visit Gynecologic Oncology Ziyad Menendez MD [address] [place], [place] [id number] [facility] Start: 11-20-2019 Influenza vaccination Flu vaccine (# 1) [facility] [place] Start: 11-09-2019 End: 11-08-2020 US Lower Extremity Venous Right US Lower Extremity Venous Right Imaging Routine Leg swelling Expected: 11/09/2019, Expires: 11/08/2020 [place], [place] Comment on above: Expected: 11/09/2019 , Expires: 11/08/2020 Start: 11-06-2019 End: 11-06-2019 Appointment [facility] Start: 10-30-2019 End: 10-30-2019 Appointment 10/30/2019 Appointment Pre-Admission Testing Ziyad Menendez MD [address] [place] [address] [phone] [facility] Pre-Admit Testing Start: 10-25-2019 Annual Wellness Visi t (AWV) Annual Wellness Visit (AWV) [place], [place] Start: 10-25-2019 End: 10-25-2019 Office Visit 10/25/2019 Office Visit Gynecologic Oncology Ziyad Menendez MD [address] [place] [address] [facility] [place] [facility] Start: 10-18-2019 Screening for malign ant neoplasm of lung Low dose CT lung screening [place], [place] Start: 08-27-2019 Screening for malign ant neoplasm of breast Breast cancer screen [facility] Start: 12-10-2018 Screening for osteoporosis Bone Density Scan [facility] Start: 08-26-2018 Screening for malign ant neoplasm of breast [facility] Start: 03-11-2018 PNEUMOCOCCAL (2 - PCV) PNEUMOCOCCAL (2 - PCV) [facility] Start: 03-11-2018 Pneumococcal 0-64 ye ars Vaccine (2 - PCV) Pneumococcal 0-64 years Vaccine (2 - PCV) [facility] Start: 03-11-2018 Pneumococcal Vaccine : 50+ Years (2 of 2 - PCV) Pneumococcal Vaccine: 50+ Years (2 of 2 - PCV) [facility] Start: 03-11-2018 Pneumococcal Vaccine : 65+ (2 - PCV) Pneumococcal Vaccine: 65+ (2 - PCV) [facility] Start: 03-11-2018 Pneumococcal Vaccine : 65+ Years (2 - PCV) Pneumococcal Vaccine: 65+ Years (2 - PCV) [facility] Start: 03-11-2018 Pneumococcal Vaccine : 65+ Years (2 of 2 - PCV) Pneumococcal Vaccine: 65+ Years (2 of 2 - PCV) [facility] Start: 03-11-2018 PNEUMOCOCCAL: 65+ (2 - PCV) PNEUMOCOCCAL: 65+ (2 - PCV) [facility] Start: 2016 RSV Immunization age d 60 or older (1 - 1-dose 60+ series) RSV Immunization aged 60 or older (1 - 1-dose 60+ series) [facility] Start: 2016 RSV Immunization for Adults (1 - Risk 60-74 years 1-dose series) RSV Immunization for Adults (1 - Risk 60-74 years 1-dose series) [facility] Start: 2016 RSV Vaccine (1 - 1-d ose 60+ series) RSV Vaccine (1 - 1-dose 60+ series) [facility] Start: 2016 RSV Vaccine (1 - Ris k 60-74 years 1-dose series) RSV Vaccine (1 - Risk 60-74 years 1-dose series) [facility] Start: 04-15-2016 Lipid panel Lipid screen [facility], [place] Start: 2006 Screening for malign ant neoplasm of colon Colon cancer screen colonoscopy [place], [place] Start: 2006 Screening for malign ant neoplasm of lung Low dose CT lung screening [facility] Start: 2006 Shingles Vaccine (1 of 2) Shingles Vaccine (1 of 2) [place] Start: 2001 COLOGUARD (FIT-DNA) COLOGUARD (FIT-D NA) [facility] Start: 2001 Colonoscopy COLONOSCOPY [facility] Start: 2001 COLORECTAL CANCER SCREENING COLORECTAL CANCER SCREENING [facility] Start: [address] COLONOGRAPHY [facility] Start: 2001 FECAL OCCULT BLOOD FECAL OCCULT BLOO D [facility] Start: 2001 Screening for malign ant neoplasm of colon [facility] Start: 2001 SIGMOIDOSCOPY SIGMOIDOSCOPY [facility] Start: 1996 Mammography [facility] Start: 1996 Screening for malign ant neoplasm of breast [facility] Start: 1986 Screening for malign ant neoplasm of cervix [facility] Start: 1986 Zoledronic acid therapy ALPHA- 1 ANTITRYPSIN DEFICIENCY SCREENING [facility] Start: 1977 Screening for malign ant neoplasm of cervix [place], [place] Start: 1974 Hepatitis C screening Hepatitis C [facility] Start: 1972 COVID-19 Vaccine (1) COVID-19 Vaccin e (1) [facility] Work Phone: Start: 1968 COVID-19 Vaccine (1) COVID-19 Vaccin e (1) [facility] Work Phone: Start: 1968 Depression Monitoring Depression Mon itoring [facility] Start: 1968 Depresssion Monitoring Depresssion M onitoring [facility] Start: 1961 COVID-19 Vaccine (#1) COVID-19 Vacci ne (#1) [facility] Start: 05-19-1957 COVID-19 VACCINE (#1) COVID-19 VACCI NE (#1) [facility] Start: 1956 Annual wellness visit Medicare Initial Physical (IPPE) [facility] Start: 1956 Annual Wellness Visi t (AWV) Annual Wellness Visit (AWV) [facility] Start: 1956 Hepatitis B Vaccines (1 of 3 - 3-dose series) Hepatitis B Vaccines (1 of 3 - 3-dose series) [facility] Start: 1956 Medicare Advantage Annual Wellness Visit (AWV) Medicare Advantage Annual Wellness Visit (AWV) [facility] Start: 1956 Screening for malign ant neoplasm of colon [facility] Start: 1956 Screening for osteoporosis Bone Density Scan [facility] Bacteria identified in Blood by Culture [facility] Work Phone: Basic metabolic 2000 panel Basic Metabolic Panel Lab Routine Daily until discontinued starting 08/04/2019, 1 [facility] [place] Comment on above: Daily until disconti nued starting 08/04/2019, 1 completed Basic Metabolic Pane l w/ Reflex to MG Basic Metabolic Panel w/ Reflex to MG Lab Routine Daily until discontinued starting 11/23/2019, 2 completed [employer] [place], [place] Comment on above: Daily until disconti nued starting 11/23/2019, 2 completed CBC Auto Differential [email or web address] [place] Comment on above: Daily until disconti nued starting 08/04/2019, 1 completed Daily until disconti nued starting 11/23/2019, 2 completed End: 02-01-2020 CBC Auto Differential CBC Auto Differential Lab Routine Malignant neoplasm of exocervix (HCC) 1 Occurrences starting 02/01/2020 until 02/01/2020 [facility] [place] Comment on above: 1 Occurrences starti ng 02/01/2020 until 02/01/2020 COLOGUARD COLOGUARD Lab Ro utine Screening for colon cancer Ordered: 09/15/2022 [facility] Work Phone: Comment on above: Ordered: 09/15/2022 End: 02-01-2020 Comprehensive metabolic 2000 panel Comprehensive Metabolic Panel Lab Routine Malignant neoplasm of exocervix (HCC) 1 Occurrences starting 02/01/2020 until 02/01/2020 [facility] [place] Comment on above: 1 Occurrences starti ng 02/01/2020 until 02/01/2020 End: 03-16-2020 COVID-19 COVID-19 Lab STAT One Time for 1 Occurrences starting 03/16/2020 until 03/16/2020 [place], [place] Comment on above: One Time for 1 Occur rences starting 03/16/2020 until 03/16/2020 COVID-19 COVID-19 Lab STA T 03/16/2020 1:18 PM [place], [place] End: 06-09-2020 Creatinine [Mass/Vol] Creatinine, Serum [...] study 1 Occurrences starting 03/10/2020 until 03/10/2020 [place], [place] Comment on above: 1 Occurrences starti ng 03/10/2020 until 03/10/2020 CT CHEST ABDOMEN PEL VIS W CONTRAST CT CHEST ABDOMEN PELVIS W CONTRAST Imaging Routine Malignant neoplasm of exocervix (HCC) Lung nodule seen on imaging study 03/10/2020 1:23 PM [place], [place] End: 06-06-2020 CT Chest W Contrast [...] starting 10/14/2021 until 10/14/2021 Culture, Blood 1 [facility] ONEL End: 03-16-2020 Culture, Blood 1 Culture, Blood 1 Microbiology STAT One Time for 1 Occurrences starting 03/16/2020 until 03/16/2020 [place], [place] Comment on above: One Time for 1 Occur rences starting 03/16/2020 until 03/16/2020 Culture, Blood 2 [facility] ON[facility] End: 03-16-2020 Culture, Blood 2 Culture, Blood 2 Microbiology STAT One Time for 1 Occurrences starting 03/16/2020 until 03/16/2020 [place], [place] Comment on above: One Time for 1 Occur rences starting 03/16/2020 until 03/16/2020 Culture, Respiratory Culture, Re spiratory Microbiology Routine 08/02/2019 11:55 PM EDT [place] Cytology Cervical or vaginal smear or scraping study Pap Smear Pathology and Cytology Routine Malignant neoplasm of exocervix (HCC) 10/20/2022 2:32 PM EDT [facility] [email or web address] End: 06-21-2025 DBT Breast - bilateral screening PAOLO SCREENING W CARON Radiology Routine Encounter for screening mammogram for breast cancer 1 Occurrences starting 05/22/2024 until 06/21/2025 [facility] Work Phone: Comment on above: 1 Occurrences starti ng 05/22/2024 until 06/21/2025 ECG 12 lead ECG 12 lead CV E CG STAT 05/21/2022 5:47 AM [facility] Work Phone: ECG 12 lead ECG 12 lead CV E CG STAT 04/27/2024 11:57 PM [facility] Work Phone: EKG 12 Lead - Chest Pain [place], [place] End: 08-04-2019 Home O2 eval (desaturation screen) Home O2 eval (desaturation screen) Respiratory Care Routine One Time for 1 Occurrences starting 08/04/2019 until 08/04/2019 [place], [place] Comment on above: One Time for 1 Occur rences starting 08/04/2019 until 08/04/2019 HPV High Risk PCR HPV High Risk PCR Microbiology Routine Malignant neoplasm of exocervix (HCC) 10/20/2022 2:32 PM EDT [facility] [email or web address] End: 02-01-2020 Magnesium [Mass/Vol] Magnesium Lab Routine Malignant neoplasm of exocervix (HCC) 1 Occurrences starting 02/01/2020 until 02/01/2020 [facility]: [facility] Occurrences starti ng 02/01/2020 until 02/01/2020 End: 08-13-2023 PAOLO SCREENING PAOLO SCREENING Radiology Routine Encounter for screening mammogram for breast cancer 1 Occurrences starting 07/14/2022 until 08/13/2023 [facility] Work Phone: Comment on above: 1 Occurrences starti ng 07/14/2022 until 08/13/2023 End: 09-05-2022 PAOLO SCREENING W CARON PAOLO SCREENING W [facility] Radiology Routine Encounter for screening mammogram for malignant neoplasm of breast 1 Occurrences starting 08/06/2021 until 09/05/2022 [facility] Work Phone: Comment on above: 1 Occurrences starti ng 08/06/2021 until 09/05/2022 MDI Treatment MDI Treatment Respiratory Care Routine Every 6hr As Needed until discontinued starting 08/02/2019 [facility] on above: Every 6hr As Needed until discontinued starting 08/02/2019 End: 07-21-2024 MG Breast Screening PAOLO SCREENING Radiology Routine Encounter for screening mammogram for breast cancer 1 Occurrences starting 06/22/2023 until 07/21/2024 [facility] Work Phone: Comment on above: 1 Occurrences starti ng 06/22/2023 until 07/21/2024 Nebulizer therapy HHN Treatment Respiratory Care Routine 0600, 1000, 1400, 1800, 2200 until discontinued starting 03/16/2020, 6 completed [facility] Comment on above: 0600, 1000, 1400, 18 00, 2200 until discontinued starting 03/16/2020, 6 completed Oxygen therapy [Mini mum Data Set] [facility] Comment on above: Daily until disconti nued starting 11/21/2019, 2 completed Daily until disconti nued starting 11/21/2019 PAIN PANEL, UR QUANT PAIN PANEL, UR QUANT Lab Routine Medication monitoring encounter 05/02/2023 3:12 PM EST [facility] Work Phone: End: 08-02-2019 Respiratory Virus PCR Panel Respiratory Virus PCR Panel Microbiology Add-On One Time for 1 Occurrences starting 08/02/2019 until 08/02/2019 [facility] [place] Comment on above: One Time for 1 Occur rences starting 08/02/2019 until 08/02/2019 SPECIMEN VALIDITY, URINE SPECIME N VALIDITY, URINE Lab Routine Medication monitoring encounter 05/02/2023 3:12 PM EST [facility] Work Phone: End: 06-09-2020 Urea nitrogen [Mass/Vol] BUN Lab Routine Malignant neoplasm of exocervix (HCC) 1 Occurrences starting 06/09/2020 until 06/09/2020 [facility]: Comment on above: 1 Occurrences starti ng 06/09/2020 until 06/09/2020 End: 10-27-2019 Urinalysis Urinalysis Lab STAT One Time for 1 Occurrences starting 10/27/2019 until 10/27/2019 [facility] [place] Comment on above: One Time for 1 Occur rences starting 10/27/2019 until 10/27/2019 End: 11-10-2019 US Lower Extremity Venous Right US Lower Extremity Venous Right Imaging Routine Leg swelling 1 Occurrences starting 11/10/2019 until 11/10/2019 [facility] [place] Comment on above: 1 Occurrences starti ng 11/10/2019 until 11/10/2019 US Lower Extremity Venous Right US Lower Extremity Venous Right Imaging Routine Leg swelling 11/10/2019 6:00 PM EDT [facility] Immunizations Immunization Date Immunization Notes Care Provider [facility] 01-12-2025 influenza vaccine A& B surf ant adjuvanted (Fluad) HIGH-DOSE injection 0.5 mL Freddy Linder MD Work Phone: [facility] 01-14-2023 pneumococcal Conjuga te, unspecified formulation Herminia Case MD Work Phone: [facility] Work Phone: 01-14-2023 pneumococcal (PCV20) vaccine, 20 valent (PREVNAR 20) Herminia Case MD Work Phone: [facility] 10-11-2019 zoster vaccine recombinant Melva Ephraim PA-C Work Phone: [facility] 12-07-2018 influenza, injectabl e, quadrivalent, contains preservative Melva Ephraim PA-C Work Phone: [facility] 12-07-2018 influenza virus vaccine, unspecified formulation Kisha Reichod SOUND PRINTER - DENTIST Work Phone: [facility] 01-10-2018 influenza nasal, unspecified formulation Herminia Case MD Work Phone: [facility] 01-10-2018 influenza virus vaccine, unspecified formulation Joanie Siena [facility] 01-10-2018 influenza, seasonal, injectable Melva Ladonna PA-C Work Phone: [facility] 03-11-2017 pneumococcal polysaccharide vaccine, 23 valent Melva Ephraim PA-C Work Phone: [facility] Work Phone: 02-15-2017 influenza, injectabl e, quadrivalent, preservative free Melva Ladonna PA-C Work Phone: [facility] 08-08-2016 tetanus toxoid, redu manjula diphtheria toxoid, and acellular pertussis vaccine, adsorbed Joanie Siena [facility] Work Phone: 02-10-2013 influenza, seasonal, injectable, preservative free Melva Ladonna PA-C Work Phone: [facility] 02-15-2012 influenza, seasonal, injectable, preservative free Melva Ladonna PA-C Work Phone: [facility] NEGATED: Highlighted row has not occurred!05-22-2022 Influenza,seasonal,sout radha Hemisphere,quad,preserv Free Martha Flores MD Work Phone: [facility] Comment on above: Deferred: Patient Re fused Payers Date Payer Category Payer Self-pay 2022 Medicare (Managed Care) [facility] DUAL COMPLETE HMO POS SNP [id number] 2022 Medicare HMO [employer] DUAL COMPLET E [id number] 2022 Unknown [id number] 2021 Medicare HUMANA MEDICARE HUMANA GOLD PLUS [id number] 2021-Present [phone] [address] [place] [place], [place] [address] [facility] [id number] 2021 Medicare HUMANA MEDICARE HUMANA GOLD PLUS O [id number] 2021-Present [phone] [place] [address] [id number] 2019 Medicaid [id number] 2019 Medicaid [id number] 2019 Medicare MEDICARE MEDICAR E PART A AND B [id number] 2019-Present [phone] [address] [address] [place] [address] [id number] 2019 Medicare [id number] 2014 Unknown [facility] xxxxxxxxxxxx 2014-Present [phone] [address] [place] [address] xxxxxxxxxxxx [id number] 2014 Unknown [id number] 1956 Unknown [id number] 1956 Unknown [id number] 1956 Unknown [id number] 1956 Unknown [id number] 1956 Unknown [id number] Private Health Insurance Unknown [id number] Unknown [id number] Unknown [id number] Unknown [id number] Unknown [id number] Unknown [id number] Unknown [id number] Unknown [id number] Social History Date Type Detail Facility Start: 08-02-2019 End: 01-15-2025 Tobacco smoking status NHIS Former smoker [facility] Start: 1970 End: 11-20-2019 History of tobacco use Current smoker [place], [place] Start: 1970 End: 11-20-2019 History of tobacco use Cigarette [place] Start: 08-02-2019 End: 01-12-2025 Cigarettes smoked current (pack per day) - Reported [facility] Start: 08-02-2019 End: 10-20-2020 Alcohol intake Current drinker of alcohol (finding) [place] Start: 10-19-2017 Alcohol Comment very rarely [place] Start: 1955 Sex Assigned At Not on file [place] Exposure to SARS-CoV -2 (event) Unable to assess [place] Start: 10-21-2019 End: 01-15-2025 Tobacco use and exposure Never used [place] Start: 07-27-2021 End: 11-06-2022 Exposure to SARS-CoV-2 (event) Not sure [place] Start: 11-05-2019 Alcohol Comment 1-2 times/yr [place] Start: 11-21-2019 Tobacco Comment pt states she quit 4-5 years ago [facility], [place] Start: 11-28-2020 End: 12-30-2023 Alcohol intake Current non-drinker of alcohol (finding) [facility] Start: 05-06-2021 End: 05-21-2022 History SDOH Alcohol Frequency 2 [facility] Start: 05-06-2021 End: 05-21-2022 History SDOH Alcohol Std Drinks 1 [facility] Start: 05-06-2021 History SDOH Social Connections Phone 5 [facility] Start: 05-06-2021 End: 03-05-2022 History SDOH Social Connections Get Together 4 [facility] Start: 05-06-2021 End: 03-05-2022 History SDOH Social Connections Meetings 98 [facility] Start: 05-06-2021 End: 03-05-2022 History SDOH Social Connections Living 3 [facility] Start: 05-06-2021 End: 05-21-2022 History SDOH Physical Activity DPW 0 [facility] Start: 07-11-2018 End: 09-15-2022 Tobacco Comment vaping intermittently [facility] Start: 03-05-2022 End: 01-12-2025 Social connection and isolation panel [facility] Do you belong to any clubs or organizations such as baptist groups, unions, fraternal or athletic groups, or school groups? No [facility] How often do you att end meetings of the clubs or organizations you belong to? Patient refused [facility] Are you now , , , , never or living with a partner? [facility] How often to you hav e a drink containing alcohol? Never [facility] How hard is it for y ou to pay for the very basics like food, housing, medical care, and heating Not very hard [facility] Do you feel stress - tense, restless, nervous, or anxious, or unable to sleep at night because your mind is troubled all the time - these days [OSQ] To some extent [facility] (I/We) worried jeannie er (my/our) food would run out before (I/we) got money to buy more. Never true [facility] The food that (I/we) bought just didn't last, and (I/we) didn't have money to get more. DK or Refused [facility] Start: 04-26-2021 Gender identity Identifies as female gender (finding) [facility] Start: 04-26-2021 Sexual orientation Heterosexual (finding) [facility] Start: 05-21-2022 End: 01-20-2025 Alcohol intake Ex-drinker (finding) [facility] Start: 05-21-2022 Alcohol Comment Approx once a year [facility] Are you now , , , , never or living with a partner? [facility] Do you feel stress - tense, restless, nervous, or anxious, or unable to sleep at night because your mind is troubled all the time - these days [OSQ] Only a little [facility] Start: 10-19-2021 Sex Female (finding) [facility] History of tobacco use Passive smoker [facility] How often do you nee d to have someone help you when you read instructions, pamphlets, or other written material from your doctor or pharmacy [SILS] Rarely [facility] Work Phone: Start: 1955 Sex Assigned At Female [facility] Start: 01-15-2025 Tobacco Comment Started at 15, 0.5 PPD, increased to 2.5 PPD at 31, quit smoking cigarettes in 2019 and started vaping, uses a rechargeable vape, the amount she vapes per day depends on whether she is a home or in rehab. 01/15/2025 [facility] Medical Equipment Procedure Code Equipment Code Equipment Origin al Text Equipment Identifier Dates [employer]-12/19/2019 [id number] Start: 12-19-2019 Comment on above: Description: [employer] Left Chest Regular Size. Screw Josie 7.3x85mm 16mm-Thrd - [id number] Start: 11-07-2022 Screw Josie 7.3x85mm 16mm-Thrd - [id number] Start: 11-07-2022 Functional Status Date Assessment Result Facility 06-06-2024 Total score [AUDIT-C] 0 06/07/19 25 9:46 AM EDT User, Na [facility] 06-06-2024 Within the last year , have you been humiliated or emotionally abused in other ways by your partner or ex-partner? No 06/06/2024 9:46 AM EDT UserNa No [facility] 06-06-2024 Within the last year , have you been afraid of your partner or ex-partner? No 06/06/2024 9:46 AM EDT UserCharliet No [facility] 06-06-2024 Within the last year , have you been raped or forced to have any kind of sexual activity by your partner or ex-partner? No 06/06/2024 9:46 AM EDT UserCharliet No [facility] 06-06-2024 Within the last year , have you been kicked, hit, slapped, or otherwise physically hurt by your partner or ex-partner? No 06/06/2024 9:46 AM EDT UserCharliet No [facility] 06-06-2024 How often to you hav e a drink containing alcohol? Never 06/06/2024 9:46 AM EDT User, Charliet Never [facility] 06-06-2024 Functional status Patient does n ot drink 06/06/2024 9:46 AM EDT User, Charliet Patient does not drink [facility] 06-06-2024 How often do you hav e 6 or more drinks on 1 occasion? Never 06/06/2024 9:46 AM EDT UserCharliet Never [facility] Clinical Notes 09-24-2020 to 01-24-2025 Telephone Encounter - Pradeep Ashraf RCP - 01/24/2025 3:55 PM ESTTelephone Encounter - Pradeep Ashraf RCP - 01/24/2025 3:55 PM Adrian Medina RN - 01/22/2025 6:27 PM ESTDischarge Instructions Note Date & Type Note Facility 01-24-2025 Telephone encounter Note COPD Navigator Note Called patient on home phone. No answer. Left Voicemail. [facility] 01-24-2025 Miscellaneous Notes COPD Navigator Note Called patient on home phone. No answer. Left Voicemail. documented in this encounter [facility] 01-22-2025 Nurse Note Report called to Marisela at [facility]. Belongings packed and sent with patient, including eye glasses. Patient states dentures were already at [place], she did not have them during hospitalization. [facility] 01-22-2025 Nurse Note Report called to Marisela at [facility]. Belongings packed and sent with patient, including eye glasses. Patient states dentures were already at [place], she did not have them during hospitalization. Wound Care consulted for Pressure Injury Prevention. Pt's Jeri score= 18 on 01/15 Pt's pressure points assessed. Pt turned independently in the bed for posterior assessment. Pt's Heels, Buttocks/coccyx, Back, Elbows, Occiput and ears all intact. [place] and blanchable tissues noted to sacrum. Pt [...] Rosalina Cross RN documented in this encounter [facility] 01-22-2025 Progress note Formatting of t his note might be different from the original. Case Management Discharge Summary Note Who you talked to: Name: demetrice Mcgee PLAN: Care Home Facility Facility: [facility], Level of Care: LTC, going to be skilled with PT/OT, and Transport: 6 PM [facility] 01-22-2025 Miscellaneous Notes Case Management Discharge Summary Note Who you talked to: Name: demetrice Mcgee PLAN: Care Home Facility Facility: [facility], Level of Care: LTC, going to be skilled with PT/OT, and Transport: 6 PM Confirmed pickup time of 6pm by transport [employer] at phone number [phone]. Location of facility drop off is TO [facility]URN BACK [facility]. Facility notified via [facility], [facility] notified on secure chat. Spoke to facility today, [facility]. Requested for patient to return while authorization is still pending because she lives there. They are agreeable and will follow for [facility] approval. Auth was initiated here by our [facility] and they are aware. Notified them that no 7000 will be completed because we currently have not obtained insurance authorization. Transport requested 4PM in [facility]. Awaiting time confirmation. Discharge med list [facility] via [facility] per [facility] request. 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 Continue on 4L O2 NC, respiratory treatments. ATBX regimen through today for Pseudomonas. Geriatrics/Palliative following. Planned Discharge Disposition: Care Home Facility, [facility]. Waiting on response from facility to see [...] received for skilled [facility] care at [facility]. Planned Discharge Disposition: Care Home Facility ([facility]) Barriers/Today we still Wait: Clinical stability, Facility pre-cert, Corporate Safety Coordinator recommendations (comment) (pending OT rec) Length of Stay (Days): 8 GMLOS: 3.5 PT/OT notes both rec return to ECF with PT/OT. Tasked BUSINESS ANALYTICS SPECIALIST Sulfuric Acid Plant Operator to start [facility] Medicare auth for patient to return [...] - anticipate back tomorrow. Planned Discharge Disposition: Care Home Facility ([facility] - plan to return skilled, need auth) Barriers/Today we still Wait: Clinical stability, Facility pre-cert, Corporate Safety Coordinator recommendations (comment) (pending OT rec) Length of Stay (Days): 7 GMLOS: 3.5 CM tasked to follow patient through the weekend to assist with discharge needs. Chart reviewed. Expected Discharge, Rapid Rounding, and Discharge Milestones / Delays updated as appropriate. CM portion of SHAMA complete. Tasked to follow for possible weekend DC back to [facility] with skilled [...] Patient Information Source of Information: Patient Cognition/Language: Sudanese Permission given to speak with patient personnel representative/caregiver as indicated: No Confirmation of Payer with patient/family: No Payer Name: [employer] Medicare Dual Complete : N/A Confirmation of Primary Care Physician: dr Herminia Case MD Primary Caregiver: Facility staff If assistance needed, confirmed caregiver ready, willing and able to care for patient at discharge: facility staff Confirmed with: [facility] Living Arrangements Current Residence: Number of Floors Number of Entry Steps: Bed/Bath Levels: Facility: Facility Name: [facility] Plan to Return: Yes Lives with: residents Support Systems: Children, Dtr and son Activities of Daily Living Ambulation: With walker/WC Bathing/Dressing: Indep Elimination/Continence/Toileting : Indep Feeding: Indep Who Assists with Activities of Daily Living: Facility medical staff if needed Instrumental Activities of Daily Living Prescription Coverage: Pharmacy Used[id number], [place] - [address] [facility] Medication Management: Facility medical [...] for: N/A Additional Information: Patient is from [facility]. Patient states she has lived there [...] indicated at this time. Planned Discharge Disposition: Care Home Facility, returning to [place] [facility]. Updated on clinicals via Careport today. Declined BIPAP. Vapes, smoking cessation. Hx of anxiety/depression. CM will continue to follow for updates and discharge planning. Barriers/Today we still Wait: Clinical stability, Corporate Safety Coordinator recommendations (Pulmonology) Length of Stay (Days): 4 GMLOS: 3.5 Accepted ICU transfer from Dr. Pires Referral placed to return back to [facility] via Care[facility] per [facility] request. Await review and response regarding ability to accept. TCC notified. Request for BUSINESS ANALYTICS SPECIALIST to place referral to [facility]. CM will follow for updates and discharge planning. Images from the original note were not included. [facility] Palliative Care Transitions [...] PO intake Debility -increased weakness -admitted from [facility] -PT/OT as able -2nd admission since July 2024 CODE STATUS DISCUSSIONS: -Gonzalo Deluca retains capacity for medical decision-making -HCPOA: daughter Karishma [phone] - Another emergency contact listed is son Jace [phone] - pt admitted from [facility] - met with patient this am, introduced self and role - patient was calm, comfortable, stated she is feeling better - Code status already DNRCCA/DNI - patient stated her goal is to get better and go back to [facility] - provided empathetic listening and emotional support to patient - discussed with bedside RN SYMPTOM MANAGEMENT MEDICATIONS: - not prescribed by our team DISPOSITION: TBD FACILITY/HOME CARE AGENCY NAME: TBD Follow up with Nursing facility Reason for Outpatient/Home/ECF Palliative Care follow-up: N/A Opiate Prescribing - not prescribed by our team SIGNED: Nilesh Frey APRN - DENTIST 01/13/2025, 8:47 AM documented in this encounter [facility] 01-22-2025 Progress note Formatting of t his note might be different from the original. Confirmed pickup time of 6pm by transport [employer] at phone number [phone]. Location of facility drop off is TO RETURN BACK [facility]. Facility notified via Careport, TCC notified on secure chat. [facility] 01-22-2025 Progress note Formatting of t his note might be different from the original. Spoke to facility today, [facility]. Requested for patient to return while authorization is still pending because she lives there. They are agreeable and will follow for [facility] approval. Auth was initiated here by our BUSINESS ANALYTICS SPECIALIST and they are aware. Notified them that no 7000 will be completed because we currently have not obtained insurance authorization. [facility] 01-22-2025 Progress note Formatting of t his note might be different from the original. Transport requested 4PM in [facility]. Awaiting time confirmation. [facility] 01-22-2025 Progress note Formatting of t his note might be different from the original. Discharge med list transmitted to [facility] request. AUTH IS STILL PENDING: REQUEST TO SET UP TRANSPORT AND SEND DISCHARGE INFO TO FACILITY DID NOT COMPLETE 7000/PATIENT WAS CORRECTION [facility] 01-22-2025 Note [facility] 01-22-2025 Hospital course Narrative Images [...] Your Medications These medications were sent to [facility]/pharmacy #[id number] - [facility] [address] [address] [place] [id number] predniSONE 10 MG tablet sodium chloride 3 [...] Complexity: follow up within 7-14 calendar days (22964) [x] Severe Complexity: follow up within 7 calendar days (43305) Follow up Testing, Pending results or Referrals [...] DO Division of Hospitalist Medicine Inpatient Medical Services/[facility] 01/22/2025, 1:50 PM Total time Spent on Discharge: 32 minutes documented in this encounter [facility] 01-22-2025 History of Presen t illness Narrative Images from the original note were not included. PHYSICAL THERAPY [facility] Treatment Note Name/MRN: Gonzalo Deluca ([id number]) Date of : 1955 Age: 69 y.o. [...] upon presenting deficits prior to discharge to [facility] with PT. Subjective Pt pleasant and [...] Pt completed gait training with fww at [facility] progressing to SBAx1. Notable SOB present with [...] original note were not included. OCCUPATIONAL THERAPY [facility] Treatment Note Name/MRN: Gonzalo Deluca ([id number]) Date of : 1955 Age: 69 y.o. [...] STS and functional mobility with FWW at [facility]. Pt SpO2 dropping to 82%, [...] Park OT at 01/22/2025 3:05 PM EST [facility] Geriatric Medicine Inpatient Consult Service Admission Date: 01/12/2025 Assessment Principal Problem: COPD exacerbation (HCC) Active Problems: Debility Anxiety and depression Cognitive deficits At risk for delirium Other chronic pain Moderate malnutrition (CMS/HCC) (HCC) Plan Debility --contributing factors include medications, chronic respiratory failure, malnutrition, cognitive decline --using walker/wheelchair at baseline. Living at [facility] since July. Per daughter, she is not eligible for medicaid and may need alternative living arrangement. Social Work consulted. --PT and OT --dietitian following --Continue Vitamin D3 supplement 01/22: Making good progress with therapy - plan to return to [facility] with therapy. Depression and Anxiety --On [...] facility, however it is being filled at [facility] under prior PCP order for 200mg daily [...] contributing. --Recommend outpatient follow up at [facility] for more in depth cognitive evaluation when in usual state of health if she returns home. 01/22: Stable. Recommend outpatient cognitive evaluation at her facility if she stays there half-way. Chronic pain --takes Oxycodone 15mg every 6 [...] malnutrition, pneumonia presented to the hospital from [place] [facility] for shortness of breath and hypoxia. [...] (L) 07/30/2024 Lab Results Component Value Date [id number] 639 07/30/2024 Lab Results Component Value Date [...] Units, Oral, Daily, Saad Telles APRN - DENTIST, 2,000 Units at 01/22/25 0811 Diclofenac Sodium [...] from the original note were not included. [facility], Pulmonary Medicine [address] [place] [id number] Patient - Gonzalo Deluca, Age - 69 [...] hours. ABGs: No results for input(s): "PHART", "NYD4JTV", "PO2ART", "RYQ0USJ", "SO2ART", "F5WGQLZD" in the last 72 hours. Microbiology: COVID/Flu/RSV: [...] chronic pain COPD (chronic obstructive pulmonary disease) ([facility]) DDD (degenerative disc disease), cervical Leukocytosis Malignant neoplasm of exocervix ([facility]) Moderate malnutrition (CMS/HCC) ([facility]) Recurrent major depression Pulmonary nodule S/P hysterectomy Sciatica Shortness of breath Supplemental oxygen dependent PNA (pneumonia) H/O: CVA (cerebrovascular accident) Former smoker Nondisplaced fracture of neck of left femur ([facility]) Lumbar compression fracture, closed, initial encounter (HCC) [...] Intake: (Pt reports good appetite currently and [employer]) Weight Loss: (regaining some weight back; 89# (07/2024) cbw 106#) Body Fat Loss: (Moderate body fat loss) Orbital, Triceps, Buccal region Muscle Mass Loss: (Moderate muscle mass loss) Temples (temporalis), Clavicles (pectoralis & deltoids), Hand (interosseous), Scapula (trapezius) Fluid Accumulation: No significant fluid accumulation Death Surveys Coder Strength: Not Performed Nutrition Assessment: 69 year old woman who remains admitted to [facility] since 01/12 with shortness of breath and exacerbation of COPD. +MRSA PCR for MSSA. Admitted to ICU for NIV support, she was weaned off NIV on 01/14, and transferred to [facility]. Pulmonology consulted and supporting +4 L O2 via NC. Geriatrics and palliative care consulted and supporting. Will completed day 10 of Cefepime today. Pending discharge back to [facility]- awaiting auth for skilled rehab as she [...] (kg): 48 kg Total Energy Requirements (kcals/day): 0382-0745 kcals (30-35 kcals/kg) Weight Used for Protein [...] 93.2# 08/20/24) % Weight Change (Calculated): 13.9 Atlantic Body Weight (lbs) (Calculated): 120 lbs Atlantic Body Weight (Kg) (Calculated): 55 kg % Atlantic Body Weight (Calculated): 88.5 % BMI (kg/m2) [...] current diet Celeste Garcia RDN, LDN, Contact: *[phone] Images from the original note were not included. PHYSICAL THERAPY [facility] Treatment Note Name/MRN: Gonzalo Deluca ([id number]) Date of : 1955 Age: 69 y.o. [...] x1) Greer Delarosa PT Hospitalist Progress Note 01/21/[id number]: Please page me ([phone]) for patient care issues. [phone]: Please page [facility] night Hospitalist for any issues. Subjective: Admit Date: 01/12/2025 PCP: HERMINIA CASE MD Room#: B4-450/B4-450 A Interval History: No overnight issues. Denies chest pain or sob today and continues to do very good clinically. Does NOT look sob laying in bed. She denies any abdominal pain, nausea, vomiting. No fevers or chills. Denies any new complaints. Adult diet Regular @[id number]@ 24HR INTAKE/OUTPUT: No intake or output data [...] day of antibx). She is actually from [facility]. PT OT saw and recommended SNF. She will need authorization to go back to the skilled portion of [facility]. - Continue pulmonary toilet as [...] authorization to go to skilled portion of [facility] Extended Emergency Contact Information Primary Emergency Contact: Karishma Deluca Address: [address] [place] [address] [place] [phone] [facility] Mobile Relation: Daughter Secondary Emergency Contact: Jace Deluca Mobile Relation: Darshan Walker MD Division of Hospitalist Medicine Inpatient Medical Services/[facility] PAGER: Epic chat [1] Past Medical History: Diagnosis Date Abnormal stress test Acute exacerbation of chronic obstructive pulmonary disease (HCC) 04/12/2018 Allergic rhinitis 1955 Arthritis Asthma ([facility]/HCC) Bronchitis Cancer (HCC) skin Cervical cancer ([facility]) Chest pain COPD (chronic obstructive pulmonary disease) ([facility]) USE OXYGEN 3 L AT NIGHT DDD (degenerative disc disease), cervical Defect, retina, with detachment right DJD (degenerative joint disease), lumbar Emphysema lung (HCC) Former smoker Hematuria SCHEDULED FOR THE PROCEDURE /SURGERY ON 02/11/2017 Hypokalemia Lung nodules Near syncope 09/19/2023 Osteoporosis Palpitations Pneumonia [id number] Recurrent major depression Sciatica Thoracic compression fracture ([facility]) Vitamin D deficiency [2] [3] aspirin, 81 [...] from the original note were not included. [facility], Pulmonary Medicine [address] [place], [place] [id number] Patient - Gonzalo Deluca, Age - 69 y.o. - 1955 Room Number - B4-450/B4-450 A Consulting - Austin Walker MD Primary Care Physician - [id number] Date of Admission - 01/12/2025 9:18 AM [...] 136* ABGs: No results for input(s): "PHART", "HDI0CZS", "PO2ART", "YEA2MUX", "SO2ART", "V2IQNZBZ" in the last 72 hours. Microbiology: COVID/Flu/RSV: [...] Discharge planning: Okay to discharge back to [place] [facility] today after antibiotics. Hospital follow up scheduled [...] Units, Oral, Daily, Saad Telles APRN - DENTIST, 2,000 Units at 01/20/25 08 Diclofenac Sodium [...] deficits At risk for delirium COPD exacerbation ([facility]) Hospitalist Progress Note 01/20/2025 [phone]: Please page me ([phone]) for patient care issues. [phone]: Please page [facility] Hospitalist for any issues. Subjective: Admit Date: 01/12/2025 PCP: HERMINIA CASE MD Room#: [facility] A Interval History: No overnight issues. Denies chest pain or sob today and states she is still breathing fine today and feels like she is at her baseline. Does NOT look sob laying in bed. She denies any abdominal pain, nausea, vomiting. No fevers or chills. Denies any new complaints. Clinically looks good. Adult diet Regular @HTOW1GQUAJT@ 24HR INTAKE/OUTPUT: Intake/Output Summary (Last 24 hours) [...] Cefepime. Regardless, she is actually from [facility]. PT OT saw and recommended SNF. She per case management's DVT, she will need authorization [facility]. - Continue pulmonary toilet as [...] to go to skilled portion [facility] Extended Emergency Contact Information Primary Emergency Contact: Karishma Deluca Address: [address] [place] [address] [facility] Mobile Relation: Daughter Secondary Emergency Contact: Jace Deluca Mobile Relation: Darshan Austin Walker MD Division of Hospitalist Medicine Inpatient Medical Services/[facility] PAGER: Epic chat [1] Past Medical History: [...] nodules Near syncope 09/19/2023 Osteoporosis Palpitations Pneumonia [id number] Recurrent major depression Sciatica Thoracic compression fracture [...] original note were not included. OCCUPATIONAL THERAPY [facility] Initial Evaluation Name/MRN: Gonzalo Deluca ([id number]) Evaluation Date: 01/20/2025 Date of : 1955 [...] planned discharge for OT on return to [facility]. Admitting Diagnosis: COPDe, respiratory failure, encephalopathy. [...] Problem List Diagnosis Date Noted COPD exacerbation ([facility]) 01/12/2025 Anxiety and depression 08/03/2024 Cognitive deficits 08/03/2024 At risk for delirium 08/03/2024 Severe malnutrition ([facility]) ([facility]) 07/31/2024 Adult failure to thrive 07/30/2024 Falls frequently 09/20/2023 Unintentional weight loss 09/20/2023 Debility 09/20/2023 PFO (patent foramen ovale) ([facility]) 09/20/2023 Lumbar compression fracture, closed, initial encounter ([facility]) 02/13/2023 Nondisplaced fracture of neck of left femur ([facility]) 11/06/2022 Other specified complication of vascular prosthetic devices, implants and grafts, initial encounter 08/06/2021 Moderate malnutrition ([facility]) ([facility]) 01/13/2025 Poor venous access 12/19/2019 H/O: CVA (cerebrovascular accident) 12/14/2019 Malignant neoplasm of exocervix ([facility]) 11/07/2019 S/P hysterectomy 11/07/2019 PNA (pneumonia) 08/02/2019 Leukocytosis 04/13/2018 Shortness of breath 04/13/2018 DDD (degenerative disc disease), cervical 04/12/2018 Recurrent major depression 04/12/2018 Other chronic pain 04/10/2017 COPD (chronic obstructive pulmonary disease) ([facility]) 04/10/2017 Pulmonary nodule 04/10/2017 Sciatica 04/10/2017 Supplemental oxygen dependent 04/10/2017 Former smoker 04/10/2017 Medical Precautions: No active isolations Proper PPE donned/doffed in accordance with facility standards. Fall Risk: Webb Fall Risk Score: 50 (Medium Risk) Webb Fall Risk Score: 50 (High Risk) Precautions/Restrictions: N/A Family/Caregiver Present: none Overall Cognitive Status: WFL Overall Orientation Status: Oriented x4 Social/Functional History Patient admitted from [facility]. Assistive Equipment: front wheeled walker and [...] of Care supervision is transferred to a [facility] Therapy Services Occupational Therapist. Goals and/or treatment plan was established in collaboration with patient/family/other representatives. [1] Past Medical History: Diagnosis Date Abnormal stress test Acute exacerbation of chronic obstructive pulmonary disease (HCC) 04/12/2018 Allergic rhinitis 1955 Arthritis Asthma ([facility]/HCC) Bronchitis Cancer (HCC) skin Cervical cancer ([facility]) Chest pain COPD (chronic obstructive pulmonary disease) ([facility]) USE OXYGEN 3 L AT NIGHT DDD (degenerative disc disease), cervical Defect, retina, with detachment right DJD (degenerative joint disease), lumbar Emphysema lung (HCC) Former smoker Hematuria SCHEDULED FOR THE PROCEDURE /SURGERY ON 02/11/2017 Hypokalemia Lung nodules Near syncope 09/19/2023 Osteoporosis Palpitations Pneumonia [id number] Recurrent major depression Sciatica Thoracic compression fracture ([facility]) Vitamin D deficiency [2] Past Surgical History: Procedure Laterality Date CYSTOSCOPY 01/12/2017 OFFICE PROCEDURE CYSTOSCOPY 02/11/2017 C&P bladder biopsy EYE SURGERY detached retina 1994 HYSTERECTOMY 11/06/2019 ABDOMINAL RADICAL HYSTERECTOMY WITH BSO AND PELVIC LYMPH; DR. ZIYAD MENENDEZ [facility] OTHER SURGICAL HISTORY Left 12/19/2019 Med Port POWER Regular Size OTHER SURGICAL HISTORY Left 11/07/2022 Percutaneous skeltal fixation femoral fracture TUBAL LIGATION 1992 Images from the original note were not included. PHYSICAL THERAPY [facility] Treatment Note Name/MRN: Gonzalo Deluca ([id number]) Date of : 1955 Age: 69 y.o. [...] X1) Teressa King PT Hospitalist Progress Note 01/19/[id number]: Please page or ([phone]) for patient care issues. [phone]: Please page [facility] Hospitalist for any issues. Subjective: Admit Date: 01/12/2025 PCP: HERMINIA CASE MD Room#: B4-450/B4-450 A Interval History: No overnight issues. Denies chest pain or sob today and states she is still breathing good today. Does NOT look sob laying in bed. She denies any abdominal pain, nausea, vomiting. No fevers or chills. Adult diet Regular @[id number]@ 24HR INTAKE/OUTPUT: Intake/Output Summary (Last 24 hours) [...] Primary Emergency Contact: Karishma Deluca Address: [address] [place] [address] [place] [phone] [facility] Mobile Relation: Daughter Secondary Emergency Contact: Jace Deluca Mobile Relation: Darshan Walker MD Division of Hospitalist Medicine Inpatient Medical Services/[facility] PAGER: Kd chat [1] Past Medical History: [...] nodules Near syncope 09/19/2023 Osteoporosis Palpitations Pneumonia [id number] Recurrent major depression Sciatica Thoracic compression fracture [...] original note were not included. PHYSICAL THERAPY [facility] Initial Evaluation Name/MRN: Gonzalo Deluca ([id number]) Evaluation Date: 01/19/2025 Date of : 1955 [...] She demo bed mobility IND, transfer to [facility], ambulate with FWW and SBA ~50 [...] Problem List Diagnosis Date Noted COPD exacerbation ([facility]) 01/12/2025 Anxiety and depression 08/03/2024 Cognitive deficits 08/03/2024 At risk for delirium 08/03/2024 Severe malnutrition ([facility]) ([facility]) 07/31/2024 Adult failure to thrive 07/30/2024 Falls frequently 09/20/2023 Unintentional weight loss 09/20/2023 Debility 09/20/2023 PFO (patent foramen ovale) ([facility]) 09/20/2023 Lumbar compression fracture, closed, initial encounter ([facility]) 02/13/2023 Nondisplaced fracture of neck of left femur ([facility]) 11/06/2022 Other specified complication of vascular prosthetic devices, implants and grafts, initial encounter 08/06/2021 Moderate malnutrition ([facility]/HCC) ([facility]) 01/13/2025 Poor venous access 12/19/2019 H/O: CVA (cerebrovascular accident) 12/14/2019 Malignant neoplasm of exocervix ([facility]) 11/07/2019 S/P hysterectomy 11/07/2019 PNA (pneumonia) 08/02/2019 Leukocytosis 04/13/2018 Shortness of breath 04/13/2018 DDD (degenerative disc disease), cervical 04/12/2018 Recurrent major depression 04/12/2018 Other chronic pain 04/10/2017 COPD (chronic obstructive pulmonary disease) ([facility]) 04/10/2017 Pulmonary nodule 04/10/2017 Sciatica [...] Hearing: normal Social/Functional History Patient admitted from [facility]. Assistive Equipment: front wheeled walker and [...] Patient Stated Goal: to go back to [facility] Encounter Problems Encounter Problems (Active) Balance [...] of Care supervision is transferred to a [facility] Therapy Services Physical Therapist. Goals [...] nodules Near syncope 09/19/2023 Osteoporosis Palpitations Pneumonia [id number] Recurrent major depression Sciatica Thoracic compression fracture (HCC) Vitamin D deficiency [2] Past Surgical History: Procedure Laterality Date CYSTOSCOPY 01/12/2017 OFFICE PROCEDURE CYSTOSCOPY 02/11/2017 C&P bladder biopsy EYE SURGERY detached retina 1994 HYSTERECTOMY 11/06/2019 ABDOMINAL RADICAL HYSTERECTOMY WITH BSO AND PELVIC LYMPH; DR. ZIYAD MENENDEZ [facility] OTHER SURGICAL HISTORY Left 12/19/2019 Med Port POWER Regular Size OTHER SURGICAL HISTORY Left 11/07/2022 Percutaneous skeltal fixation femoral fracture TUBAL LIGATION 1992 [facility] Geriatric Medicine Inpatient Consult Service Admission Date: 01/12/2025 Assessment Principal Problem: COPD exacerbation ([facility]) Active Problems: Debility Anxiety and depression Cognitive deficits At risk for delirium Other chronic pain Moderate malnutrition (CMS/HCC) (HCC) Plan Debility --contributing factors include medications, chronic respiratory failure, malnutrition, cognitive decline --using walker/wheelchair at baseline. Living at [facility] since July. Per daughter, she is not [...] facility, however it is being filled at [facility] under prior PCP order for 200mg daily [...] contributing. --Recommend [facility] [facility] for more in depth cognitive evaluation when in usual state of health if she returns home. 01/18: Stable. 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 Chronic pain --takes Oxycodone 15mg every [...] malnutrition, pneumonia presented to the hospital from [place] [facility] for shortness of breath and hypoxia. [...] (L) 07/30/2024 Lab Results Component Value Date [id number] 07/30/2024 Lab Results Component Value Date [...] syringe 40 mg, 40 mg, SubCUTAneous, Daily, oBy Lynn MD, 40 mg at 01/18/25 1018 fluticasone (Flonase) nasal spray 2 spray, 2 spray, Each Nostril, Daily, Srini Pires MD, 2 spray at 01/18/25 1019 folic acid (Folvite) tablet 1 mg, 1 mg, Oral, Daily, Boy Lnyn MD, 1 mg at 01/18/25 1018 guaiFENesin [...] from the original note were not included. [facility], Pulmonary Medicine [address] [place] [address] Patient - Gonzalo Deluca, Age - 69 y.o. - 1955 Room Number - B4-450/[id number] A Consulting - Austin Walker MD Primary Care Physician - HERMINIA CASE MD [facility] # - [id number] Date of Admission - 01/12/2025 9:18 AM [...] 85 ABGs: No results for input(s): "PHART", "ZDG0SRJ", "PO2ART", "QUV3EGK", "SO2ART", "W5PGOQDW" in the last 72 hours. Microbiology: COVID/Flu/RSV: [...] solution 3 mL, 3 mL, Nebulization, TID, Byo Lynn MD, 3 mL at 01/18/25 0815 [...] COPD exacerbation (HCC) Hospitalist Progress Note 01/18/2025 [phone]: Please page me ([phone]) for patient care issues. [phone]: Please page [facility] Hospitalist for any issues. Subjective: Admit Date: 01/12/2025 PCP: HERMINIA CASE MD Room#: [id number]/B4-589 A Interval History: No overnight issues. Denies chest pain or sob today and states she is still breathing good today. Does NOT look sob laying in bed. She denies any abdominal pain, nausea, vomiting. No fevers or chills. Adult diet Regular @NXGU1BRQSZT@ 24HR INTAKE/OUTPUT: Intake/Output Summary (Last 24 hours) [...] Primary Emergency Contact: Karishma Deluca Address: [address] [place] [address] [place] [id number] [facility] Mobile Relation: Daughter Secondary Emergency Contact: Jace Deluca Mobile Relation: Darshan Walker MD Division of Hospitalist Medicine Inpatient Medical Services/[facility] PAGER: Virax chat [1] Past Medical History: Diagnosis Date Abnormal stress test Acute exacerbation of chronic obstructive pulmonary disease (HCC) 04/12/2018 Allergic rhinitis 1955 Arthritis Asthma (HHS/HCC) Bronchitis Cancer (HCC) skin Cervical cancer (HCC) Chest pain COPD (chronic obstructive pulmonary disease) ([facility]) USE OXYGEN 3 L AT NIGHT DDD (degenerative disc disease), cervical Defect, retina, with detachment right DJD (degenerative joint disease), lumbar Emphysema lung (HCC) Former smoker Hematuria SCHEDULED FOR THE PROCEDURE /SURGERY ON 02/11/2017 Hypokalemia Lung nodules Near syncope 09/19/2023 Osteoporosis Palpitations Pneumonia [id number] Recurrent major depression Sciatica Thoracic compression fracture [...] from the original note were not included. [facility], Pulmonary Medicine [address] [place] [address] Patient - Gonzalo Deluca, Age - 69 y.o. - 1955 Room Number - B4-450/[id number] [id number] Consulting - Austin Walker MD Primary Care Physician - HERMIN[id number] Date of Admission - 01/12/2025 9:18 AM [...] 90 102 ABGs: Recent Labs 01/15/25 0533 [id number] Nasal Cannula (LPM) Microbiology: COVID/Flu/RSV: Negative Respiratory [...] spray, 2 spray, Each Nostril, Daily, Srini Piers MD, 2 spray at 01/16/25 0958 folic [...] chronic pain COPD (chronic obstructive pulmonary disease) ([facility]) DDD (degenerative disc disease), cervical Leukocytosis Malignant neoplasm of exocervix ([facility]) Moderate malnutrition (CMS/HCC) ([facility]) Recurrent major depression Pulmonary nodule S/P hysterectomy Sciatica Shortness of breath Supplemental oxygen dependent PNA (pneumonia) H/O: CVA (cerebrovascular accident) Former smoker Nondisplaced fracture of neck of left femur ([facility]) Lumbar compression fracture, closed, initial encounter ([facility]) Severe malnutrition (CMS/HCC) ([facility]) Falls frequently Unintentional weight loss Debility PFO (patent foramen ovale) ([facility]/HCC) Adult failure to thrive Anxiety and depression [...] Intake: (Pt reports good appetite currently and [employer]) Weight Loss: (regaining some weight back; 89# (07/2024) cbw 106#) Body Fat Loss: (Moderate body fat loss) Orbital, Triceps, Buccal region Muscle Mass Loss: (Moderate muscle mass loss) Temples (temporalis), Clavicles (pectoralis & deltoids), Hand (interosseous), Scapula (trapezius) Fluid Accumulation: No significant fluid accumulation Death Surveys Coder Strength: Not Performed Nutrition Assessment: Pt stated [...] (kg): 48 kg Total Energy Requirements (kcals/day): 9840-0438 kcals (30-35 kcals/kg) Weight Used for Protein [...] 08/03/24- 89#) % Weight Change (Calculated): -1.9 Atlantic Body Weight (lbs) (Calculated): 120 lbs Atlantic Body Weight (Kg) (Calculated): 55 kg % Atlantic Body Weight (Calculated): 98.3 % BMI (kg/m2) [...] Oral Nutrition Supplement Gary Lugo RD Contact: *[phone] or via Secure Chat Hospitalist Progress Note 01/17/2025 [phone]: Please page me ([phone]) for patient care issues. [phone]: Please page [facility] Hospitalist for any issues. Subjective: [...] No fevers or chills. Adult diet Regular @[id number]@ 24HR INTAKE/OUTPUT: Intake/Output Summary (Last 24 hours) [...] Primary Emergency Contact: Karishma Deluca Address: [address] [place] [address] [place] [address] [facility] Mobile Relation: Daughter Secondary Emergency Contact: Jace Deluca Mobile Relation: Darshan Walker MD Division of Hospitalist Medicine Inpatient Medical Services/[facility] PAGER: Epic chat [1] Past Medical History: Diagnosis Date Abnormal stress test Acute exacerbation of chronic obstructive pulmonary disease (HCC) 04/12/2018 Allergic rhinitis 1955 Arthritis Asthma ([facility]/HCC) Bronchitis Cancer (HCC) skin Cervical cancer (HCC) Chest pain COPD (chronic obstructive pulmonary disease) ([facility]) USE OXYGEN 3 L AT NIGHT DDD (degenerative disc disease), cervical Defect, retina, with detachment right DJD (degenerative joint disease), lumbar Emphysema lung (HCC) Former smoker Hematuria SCHEDULED FOR THE PROCEDURE /SURGERY ON 02/11/2017 Hypokalemia Lung nodules Near syncope 09/19/2023 Osteoporosis Palpitations Pneumonia [id number] Recurrent major depression Sciatica Thoracic compression fracture [...] BID sodium chloride, 4 mL, Nebulization, BID [facility] Geriatric Medicine Inpatient Consult Service Admission Date: 01/12/2025 Assessment Principal Problem: COPD exacerbation (HCC) Active Problems: Debility Anxiety and depression Cognitive deficits At risk for delirium Other chronic pain Moderate malnutrition (CMS/HCC) (HCC) Plan Debility --contributing factors include medications, chronic respiratory failure, malnutrition, cognitive decline --using walker/wheelchair at baseline. Living at [facility] since July. Per daughter, she is not [...] facility, however it is being filled at [facility] under prior PCP order for 200mg daily [...] contributing. --Recommend outpatient follow up at [facility]) for more in depth [...] malnutrition, pneumonia presented to the hospital from [place] [facility] for shortness of breath and hypoxia. [...] (L) 07/30/2024 Lab Results Component Value Date [id number] [id number] 07/30/2024 Lab Results Component Value Date [...] mL at 01/16/25 0809 Hospitalist Progress Note 01/16/20256998768-4239: Please page me ([phone]) for patient care issues. [phone]: Please page [facility] Hospitalist for any issues. Subjective: Admit Date: 01/12/2025 PCP: HERMINIA CASE MD Room#: [id number]/[id number] A Interval History: No overnight issues. Denies chest pain or sob (although visibly looked a little sob??). States she is not sob at rest but only with exertion. Currently laying in bed. No abdominal pain, nausea, vomiting. No fevers or chills. Adult diet Regular @[id number]@ 24HR INTAKE/OUTPUT: Intake/Output Summary (Last 24 hours) [...] Primary Emergency Contact: Karishma Deluca Address: [address] [place] [address] Mobile Relation: Daughter Secondary Emergency Contact: Jace Deluca Mobile Relation: Darshan Walker MD Division of Hospitalist Medicine Inpatient Medical Services/[facility] PAGER: Epic chat [1] Past Medical History: Diagnosis Date Abnormal stress test Acute exacerbation of chronic obstructive pulmonary disease (HCC) 04/12/2018 Allergic rhinitis 1955 Arthritis Asthma ([facility]/HCC) Bronchitis Cancer (HCC) skin Cervical cancer (HCC) Chest pain COPD (chronic obstructive pulmonary disease) (HCC) USE OXYGEN 3 L AT NIGHT DDD (degenerative disc disease), cervical Defect, retina, with detachment right DJD (degenerative joint disease), lumbar Emphysema lung (HCC) Former smoker Hematuria SCHEDULED FOR THE PROCEDURE /SURGERY ON 02/11/2017 Hypokalemia Lung nodules Near syncope 09/19/2023 Osteoporosis Palpitations Pneumonia [id number] Recurrent major depression Sciatica Thoracic compression fracture [...] BID sodium chloride, 4 mL, Nebulization, BID [facility] Respiratory Care Department Progress Note As [...] from the original note were not included. [facility] Smoking Cessation Progress Note Smoking Cessation Intervention [...] chronic hypoxic respiratory failure. Was residing at [facility]. Interval Events: Off NIV last night. [...] Normal [] Scar/Lesion/Mass Inspection of teeth/lips/gums Dentition: []Hamilton Teeth []Dentures Lips/Gums: []Intact []Lesion Present Mucosa: [x][place] [x]Moist []Dry Neck: External Appearance Overall Appearance: [...] 0658 01/15/25 0533 PHART -- 7.391 -- UOZ0VHW -- 61.8* -- PO2ART -- 73.2* -- HAL2CRZ -- 36.7* -- [id number] BiPAP BiPAP Nasal Cannula (LPM) Lactic Acid: [...] - creatinine clearance >30 Disposition: transfer to [facility], pulmonary to follow - consult placed. [...] capacity for medical decision-making -HCPOA: daughter Karishma [phone] - Another emergency contact listed is son Jace [phone] - pt admitted from [facility] - met with patient this am, introduced self and role - patient was calm, comfortable, stated she is feeling better - Code status already DNRCCA/DNI - patient stated her goal is to get better and go back to [facility] - provided empathetic listening and emotional support [...] PO intake Debility -increased weakness -admitted from [facility] -PT/OT as able -2nd admission since July [...] is a 69 y.o. female admitted to [facility] 01/12 for SOB. Patient seen and examined [...] single Children: 2 adult child(kyler) Living status: fdc Work history: Retired due to disability Sedan status: No Gnosticist sharla: None ROS: See palliative care ROS/ESAS below; All other systems were reviewed and are negative. [place] Symptom Assessment Score [place] Score Pain Score (if non-verbal, add .FLACC [...] and when patient is able. Debriefed: with photolith operator team. Charley Read 01/14/25 ICU Progress Note Name: Gonzalo Deluca : 1955(69 y.o.) Date: 01/14/25 Team: MICU Attending: Pranay Subjective: Hospital Summary: Admitted to ICU for respiratory failure requiring NIV. History of bronchiectasis, severe COPD, chronic hypoxic respiratory failure. Was residing at [facility]. Interval Events: Remained on NIV overnight. [...] Normal [] Scar/Lesion/Mass Inspection of teeth/lips/gums Dentition: []Hamilton Teeth []Dentures Lips/Gums: []Intact []Lesion Present Mucosa: [x][place] [x]Moist []Dry Neck: External Appearance Overall Appearance: [...] 0417 01/14/25 0658 PHART -- -- 7.391 FEJ4VYX -- -- 61.8* PO2ART -- -- 73.2* YVO7LJE -- -- 36.7* [id number] Non-Invasive Ventilator BiPAP BiPAP Lactic Acid: Recent [...] Intake: (Pt reports good appetite currently and [employer]) Weight Loss: (regaining some weight back; 89# (07/2024) cbw 106#) Body Fat Loss: (Moderate body fat loss) Orbital, Triceps, Buccal region Muscle Mass Loss: (Moderate muscle mass loss) Temples (temporalis), Clavicles (pectoralis & deltoids), Hand (interosseous), Scapula (trapezius) Fluid Accumulation: No significant fluid accumulation Death Surveys Coder Strength: Not Performed Nutrition Assessment: Pt is a 69 y/o female admitted to [facility] with COPD exacerbation, transferred to ICU with [...] (kg): 48 kg Total Energy Requirements (kcals/day): 7595-9225 kcals (30-35 kcals/kg) Weight Used for Protein [...] 08/03/24- 89#) % Weight Change (Calculated): -1.9 Atlantic Body Weight (lbs) (Calculated): 120 lbs Atlantic Body Weight (Kg) (Calculated): 55 kg % Atlantic Body Weight (Calculated): 88.3 % BMI (kg/m2) [...] Oral Nutrition Supplement Gary Lugo RD Contact: *[phone] or via Secure Chat Images from the original note were not included. [facility], Pulmonary Critical Care and Sleep Medicine [address] [place] [address] Critical Care Note: Patient - Gonzalo Deluca, Age - 69 y.o. - 1955 Room Number - [id number] [facility] # - [id number] Date of Admission - 01/12/2025 9:18 AM [...] [Urine:400 (0.2 mL/kg/hr)] Weight: 47.6 kg @IODETAILS@ @HGYT2VBPHDA@ Lines, ET tube, Devices Lines - Medications [...] (HCC) Lumbar compression fracture, closed, initial encounter ([facility]) Severe malnutrition (CMS/HCC) (HCC) Falls [...] oxyCODONE, QUEtiapine [4] documented in this encounter [facility] 01-22-2025 Hospital Discharg e navdeep Cross APRN - DENTIST - 01/22/2025 9:57 AM EST What to [...] fever): Most importantly call your Pulmonary provider: [phone] RED ZONE: Medical Alert Struggling to breath [...] Primary Emergency Contact: Karishma Deluca Address: [address] [place] [address] [place] [address] [facility] Mobile Relation: Daughter Secondary Emergency Contact: Jace Deluca Mobile Relation: Son Past Surgical History: Past Surgical History: Procedure Laterality Date CYSTOSCOPY 01/12/2017 OFFICE PROCEDURE CYSTOSCOPY 02/11/2017 C&P bladder biopsy EYE SURGERY detached retina 1994 HYSTERECTOMY 11/06/2019 ABDOMINAL RADICAL HYSTERECTOMY WITH BSO AND PELVIC LYMPH; DR. ZIYAD MENENDEZ [facility] OTHER SURGICAL HISTORY Left 12/19/2019 Med [...] Minimal assistance Toileting Minimal assistance Feeding Independent Hide Trimmer Total assistance Med Delivery yes Wound Care [...] Date: 01/12/25 Discharging to Facility/ Agency Name: [facility] Address: [address] [place] [address] It Systems Manager/[employer] Contact Printer signature: ICIAN SECTION Name: Gonzalo Deluca Prognosis: excellent Condition at Discharge: stable Rehab Potential (if transferring to Rehab): excellent Recommended Labs or Other Treatments After Discharge: none The individual is being admitted to a nursing facility directly from an [facility] or a unit of a [facility] that is not operated by or licensed by [facility] under section 5119.14 or 5160-3-15.1 5 The individual requires the level of services provided by a nursing facility for the condition for which he or she was treated in the hospital and, Physician Certification: I certify the above information and transfer of Gonzalo Deluca is necessary for the continuing treatment of the diagnosis listed and that she requires care home facility for less than 30 days. Update Admission H&P: No change in H&P PHYSICIAN SIGNATURE: documented in this encounter [facility] 01-21-2025 Progress note Formatting of t his note might be different from the original. Care Management Progress Note Short Medical why still here: Patient remains on 4S today awaiting insurance authorization for [facility], where she is LTC. Continue on 4L O2 NC, respiratory treatments. ATBX regimen through today for Pseudomonas. Geriatrics/Palliative following. Planned Discharge Disposition: Care Home Facility, [facility]. Waiting on response from facility to see if we can discharge patient back to LTC and they obtain insurance authorization for skilled rehab. If not, then we will start insurance authorization today internally. Follow up recommended for PFTs, scheduled on 02/25 per Pulm note. Barriers/Today we still Wait: Facility pre-cert, Clinical stability, Administering IV medications Length of Stay (Days): 9 GMLOS: 3.5 [facility] 01-20-2025 Progress note Formatting of t his note might be different from the original. Care Management Progress Note Short Medical why still here: Remains on 4S for acute on chronic hypoxic and hypercarbic respiratory failure secondary to acute exacerbation of COPD. Back to baseline 4L supplemental O2. Anticipate DC after auth received for skilled level of care at F. Planned Discharge Disposition: Care Home Facility ([facility]) Barriers/Today we still Wait: Clinical stability, Facility pre-cert, Corporate Safety Coordinator recommendations (comment) (pending OT rec) Length of Stay (Days): 8 GMLOS: 3.5 PT/OT notes both rec return to ECF with PT/OT. Tasked BUSINESS ANALYTICS SPECIALIST Sulfuric Acid Plant Operator to start UHC Medicare auth for patient to return skilled. Spoke with attending - aware patient requires auth to return for SNF level of care. CM will continue to follow. [facility] 01-19-2025 Progress note Formatting of t [...] - anticipate back tomorrow. Planned Discharge Disposition: Care Home Facility ([facility] - plan to return skilled, need auth) Barriers/Today we still Wait: Clinical stability, Facility pre-cert, Corporate Safety Coordinator recommendations (comment) (pending OT rec) Length of Stay (Days): 7 GMLOS: 3.5 CM tasked to follow patient through the weekend to assist with discharge needs. Chart reviewed. Expected Discharge, Rapid Rounding, and Discharge Milestones / Delays updated as appropriate. CM portion of SHAMA complete. Tasked to follow for possible weekend DC back to [facility]. Checked [facility] - facility requesting patient return with skilled services if appropriate and would need auth. PT/OT pending. Will follow. recs return to [facility] with PT. OT remains pending. Family wants patient to return skilled. Will need to start auth Mon. Placed Therapy See Today request for updated notes tomorrow. CM will follow. Facility updated via [facility]. [facility] 01-17-2025 Progress note Formatting of t his note might be different from the original. Care Managment Initial Assessment Date: 01/17/2025 Patient Name: Gonzalo Deluca : 1955 Patient Information Source of Information: Patient Cognition/Language: Sudanese Permission given to speak with patient personnel representative/caregiver as indicated: No Confirmation of Payer with patient/family: No Payer Name: [employer] Medicare Dual Complete : N/A Confirmation of Primary Care Physician: dr Herminia Case MD Primary Caregiver: Facility staff If assistance needed, confirmed caregiver ready, willing and able to care for patient at discharge: facility staff Confirmed with: [facility] Living Arrangements Current Residence: Number of Floors Number of Entry Steps: Bed/Bath Levels: Facility: Facility Name: [facility] Plan to Return: Yes Lives with: residents Support Systems: Children, Dtr and son Activities of Daily Living Ambulation: With walker/WC Bathing/Dressing: Indep Elimination/Continence/Toileting : Indep Feeding: Indep Who Assists with Activities of Daily Living: Facility medical staff if needed Instrumental Activities of Daily Living Prescription Coverage: Pharmacy Used: [id number] - [place], [place] - [address] [facility] Medication Management: Facility medical [...] for: N/A Additional Information: Patient is from [facility]. Patient states she has lived there [...] updates and discharge planning. Patience Almonte RN [facility] 01-17-2025 Progress note Formatting of t his [...] assistance with scheduling hospital follow-up with pulmonary. [facility] 01-16-2025 Progress note Formatting of t his [...] indicated at this time. Planned Discharge Disposition: Care Home Facility, returning to [place] [facility]. Updated on clinicals via [facility] today. Declined BIPAP. Vapes, smoking cessation. Hx of anxiety/depression. CM will continue to follow for updates and discharge planning. Barriers/Today we still Wait: Clinical stability, Corporate Safety Coordinator recommendations (Pulmonology) Length of Stay (Days): 4 GMLOS: 3.5 [facility] 01-16-2025 Consult note Formatting of th is note is different from the original. Images from the original note were not included. [facility], Pulmonary Medicine [address] [place] [address] [place] [address] [id number] 1955 Date of Admission - 01/12/2025 9:18 AM Date of evaluation - 01/16/2025 [facility] Hospital Day - 4 Consulting - [...] breathing after ambulating back to bed from [facility]. She denied any chest pain, fever, chills, nausea or vomiting. Productive cough with yellowish phlegm. Denied any hemoptysis. She is currently residing at [facility] for skilled therapy with hopes to transition to assisted living. Wears 3-4 liters NC at baseline. Currently requiring 6 with SpO2 around 90-92%. She denied use of NIPPV at home. Established patient with [facility] pulmonary (Dr. Tran and Elyssa Tesfaye SOUND PRINTER-DENTIST). On Breo ellipta & Spiriva. Patient states [...] ABGs: Recent Labs 01/14/2565701/15/25532 PHART 7.391 -- ZTC9ZDL 61.8* -- PO2ART 73.2* -- MED1YTA 36.7* -- X6ZDADLW BiPAP Nasal Cannula (LPM) Microbiology: COVID/Flu/RSV: Negative [...] (HCC) Lumbar compression fracture, closed, initial encounter ([facility]) Severe malnutrition (CMS/HCC) (HCC) Falls frequently Unintentional weight loss Debility PFO (patent foramen ovale) (HHS/HCC) Adult failure to thrive Anxiety and depression Cognitive deficits At risk for delirium COPD exacerbation ([facility]) [2] Past Medical History: Diagnosis Date Abnormal [...] nodules Near syncope 09/19/2023 Osteoporosis Palpitations Pneumonia [id number] Recurrent major depression Sciatica Thoracic compression fracture [...] [place] DO at 01/16/2025 2:27 PM EDT [facility] 01-16-2025 Consult note Formatting of th is note is different from the original. Images from the original note were not included. [facility], Pulmonary Medicine [address] [place] [address] [id number] - 1955 Date of Admission - 01/12/2025 9:18 AM Date of evaluation - 01/16/2025 Room - [facility] A Hospital Day - 4 Consulting - [...] breathing after ambulating back to bed from SUR[facility] [facility] [place]. She denied any chest pain, fever, chills, nausea or vomiting. Productive cough with yellowish phlegm. Denied any hemoptysis. She is currently residing at [facility] for skilled therapy with hopes to transition to assisted living. Wears 3-4 liters NC at baseline. Currently requiring 6 with SpO2 around 90-92%. She denied use of NIPPV at home. Established patient with [facility] (Dr. Tran and Elyssa Tesfaye SOUND PRINTER-[facility]). On Breo ellipta & Spiriva. Patient [...] ABGs: Recent Labs 01/14/2565701/15/25532 PHART 7.391 -- SJW0ILM 61.8* -- PO2ART 73.2* -- JZF8DWH 36.7* -- [id number] BiPAP Nasal Cannula (LPM) Microbiology: COVID/Flu/RSV: Negative [...] deficits At risk for delirium COPD exacerbation ([facility]) [2] Past Medical History: Diagnosis Date Abnormal stress test Acute exacerbation of chronic obstructive pulmonary disease (HCC) 04/12/2018 Allergic rhinitis 1955 Arthritis Asthma (HHS/HCC) Bronchitis Cancer (HCC) skin Cervical cancer (HCC) Chest pain COPD (chronic obstructive pulmonary disease) ([facility]) USE OXYGEN 3 L AT NIGHT DDD (degenerative disc disease), cervical Defect, retina, with detachment right DJD (degenerative joint disease), lumbar Emphysema lung ([facility]) Former smoker Hematuria SCHEDULED FOR THE PROCEDURE /SURGERY ON 02/11/2017 Hypokalemia Lung nodules Near syncope 09/19/2023 Osteoporosis Palpitations Pneumonia [id number] Recurrent major depression Sciatica Thoracic compression fracture ([facility]) Vitamin D deficiency [3] Past Surgical History: [...] EDT Associated Order(s): IP CONSULT TO GERIATRICS [facility] Geriatric Medicine Inpatient Consult Service Admission [...] decline --using walker/wheelchair at baseline. Living at [facility] since July. Per daughter, she is not eligible for medicaid and may need alternative living arrangement. Social Work consulted. --PT and OT when able --check Vit D --research worker encyclopedia following Depression Anxiety --On Wellbutrin XL 150mg [...] facility, however it is being filled at [facility] under prior PCP order for 200mg daily [...] malnutrition, pneumonia presented to the hospital from [facility] for shortness of breath and hypoxia. Admitted to the ICU for acute encephalopathy, acute on chronic hypoxic/hypercapnic respiratory failure. Required NIV. Treated for COPD exacerbation, Bronchiectasis exacerbation. Transitioning out of ICU 01/15. Off NIV. Palliative following. Conversation with patient: Reports she lives at [facility] since July 2024. She has chronic sleeping [...] facility. She has been working with a secondary social studies teacher in [facility]. May have to go home, but does not feel this is safest option. Some memory issues, but overall doing ok. May be a little more depressed at times. Nurse from [facility] verifies patient does not take Paxil or [...] this. Advance Care Planning Healthcare Power of Glazing Department Supervisor: Yes, Karishma Deluca Code Status: DNR-CCA Allergies[1] [...] Follow-up: will follow with you Saad Telles, SOUND PRINTER - DENTIST 01/15/25 3:51 PM [1] Allergies Allergen Reactions [...] 1 mg, 1 mg, Oral, Daily, Boy yLnn MD, 1 mg at 01/15/25 0826 guaiFENesin [...] (HCC) 04/12/2018 Allergic rhinitis 1955 Arthritis Asthma ([facility]/HCC) Bronchitis Cancer (HCC) skin Cervical cancer (HCC) Chest pain COPD (chronic obstructive pulmonary disease) ([facility]) USE OXYGEN 3 L AT NIGHT DDD (degenerative disc disease), cervical Defect, retina, with detachment right DJD (degenerative joint disease), lumbar Emphysema lung (HCC) Former smoker Hematuria SCHEDULED FOR THE PROCEDURE /SURGERY ON 02/11/2017 Hypokalemia Lung nodules Near syncope 09/19/2023 Osteoporosis Palpitations Pneumonia [id number] Recurrent major depression Sciatica Thoracic compression fracture ([facility]) Vitamin D deficiency [4] Past [...] capacity for medical decision-making -HCPOA: daughter Karishma [phone] - Another emergency contact listed is son Jace [phone] -goals of care: To continue current medical management, to get better; pt working towards returning home but states she knows [facility]/ 11/10 care may be better moving forward -OPERATIONS MANAGEMENT PROFESSIONALS: pt admitted from [facility] -see subjective for details of conversation [...] -PRN Tylenol Debility -increased weakness -admitted from [facility] -PT/OT as able -2nd admission since July [...] with primary attending or other consultants, Electronic blood bank order control clerk of medications, tests or procedures, Counseling and [...] have a palliative team follow her at [facility]. Discuss that [facility] does not follow [...] single Children: 2 adult child(kyler) Living status: fdc Work history: Retired due to disability Sedan status: No Hindu: None ROS: See palliative care ROS/ESAS below; All other systems were reviewed and are negative. [place] Symptom Assessment Score [place] Score Pain Score (if non-verbal, add .FLACC [...] time Transition Note Initiated: yes Nilesh Frey, SOUND PRINTER - DENTIST [1] Past Medical History: Diagnosis Date Abnormal stress test Acute exacerbation of chronic obstructive pulmonary disease (HCC) 04/12/2018 Allergic rhinitis 1955 Arthritis Asthma (HHS/HCC) Bronchitis Cancer (HCC) skin Cervical cancer (HCC) Chest pain COPD (chronic obstructive pulmonary disease) ([facility]) USE OXYGEN 3 L AT NIGHT DDD (degenerative disc disease), cervical Defect, retina, with detachment right DJD (degenerative joint disease), lumbar Emphysema lung (HCC) Former smoker Hematuria SCHEDULED FOR THE PROCEDURE /SURGERY ON 02/11/2017 Hypokalemia Lung nodules Near syncope 09/19/2023 Osteoporosis Palpitations Pneumonia [id number] Recurrent major depression Sciatica Thoracic compression fracture ([facility]) Vitamin D deficiency [2] Past Surgical History: Procedure Laterality Date CYSTOSCOPY 01/12/2017 OFFICE PROCEDURE CYSTOSCOPY 02/11/2017 C&P bladder biopsy EYE SURGERY detached retina 1994 HYSTERECTOMY 11/06/2019 ABDOMINAL RADICAL HYSTERECTOMY WITH BSO AND PELVIC LYMPH; DR. ZIYAD MENENDEZ [facility] OTHER SURGICAL HISTORY Left 12/19/2019 Med [...] 2:44 PM EDT documented in this encounter [facility] 01-16-2025 Nurse Note Wound Care consulted for Pressure Injury Prevention. Pt's Jeri score= 18 on 01/15 Pt's pressure points assessed. Pt turned independently in the bed for posterior assessment. Pt's Heels, Buttocks/coccyx, Back, Elbows, Occiput and ears all intact. [place] and blanchable tissues noted to sacrum. Pt [...] any questions or concerns. Rosalina Cross RN [facility] 01-15-2025 Consult note Associated Order (s): IP CONSULT TO GERIATRICS [facility] Geriatric Medicine Inpatient Consult Service Admission [...] decline --using walker/wheelchair at baseline. Living at [facility] since July. Per daughter, she is not eligible for medicaid and may need alternative living arrangement. Social Work consulted. --PT and OT when able --check Vit D --research worker encyclopedia following Depression Anxiety --On Wellbutrin XL 150mg [...] facility, however it is being filled at [facility] under prior PCP order for 200mg daily [...] malnutrition, pneumonia presented to the hospital from [facility] for shortness of breath and hypoxia. Admitted to the ICU for acute encephalopathy, acute on chronic hypoxic/hypercapnic respiratory failure. Required NIV. Treated for COPD exacerbation, Bronchiectasis exacerbation. Transitioning out of ICU 01/15. Off NIV. Palliative following. Conversation with patient: Reports she lives at [facility] since July 2024. She has chronic sleeping [...] facility. She has been working with a secondary social studies teacher in [facility]. May have to go home, but does not feel this is safest option. Some memory issues, but overall doing ok. May be a little more depressed at times. Nurse from [facility] verifies patient does not take Paxil or [...] this. Advance Care Planning Healthcare Power of Glazing Department Supervisor: Yes, Karishma Yosi Code Status: DNR-CCA Allergies[1] [...] Follow-up: will follow with you Saad Telles, SOUND PRINTER - DENTIST 01/15/25 3:51 PM [1] Allergies Allergen Reactions [...] nodules Near syncope 09/19/2023 Osteoporosis Palpitations Pneumonia [id number] Recurrent major depression Sciatica Thoracic compression fracture (HCC) Vitamin D deficiency [4] Past Surgical History: Procedure Laterality Date CYSTOSCOPY 01/12/2017 OFFICE PROCEDURE CYSTOSCOPY 02/11/2017 C&P bladder biopsy EYE SURGERY detached retina 1994 HYSTERECTOMY 11/06/2019 ABDOMINAL RADICAL HYSTERECTOMY WITH BSO AND PELVIC LYMPH; DR. 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 Pires [facility] 01-14-2025 Note Referral placed to lisa carpenter back to [facility] via [facility] per [facility] request. Await review and response regarding ability to accept. [facility] notified. [facility] 01-14-2025 Progress note Formatting of t his note might be different from the original. Referral placed to return back to [facility] via [facility] per [facility] request. Await review and response regarding ability to accept. TCC notified. [facility] 01-14-2025 Note Request for BUSINESS ANALYTICS SPECIALIST to gerald blount referral to [facility]. CM will follow for updates and discharge planning. [facility] 01-14-2025 Progress note Formatting of t his note might be different from the original. Request for BUSINESS ANALYTICS SPECIALIST to place referral to [facility]. CM will follow for updates and discharge planning. [facility] 01-13-2025 Consult note Associated Order (s): IP CONSULT TO PALLIATIVE CARE Images from the original note were not included. Palliative Care Initial Consult Chief Complaint: Gonzalo Deluca is a 69 y.o. female with chief complaint of shortness of breath. Palliative Care is actively following. Assessment/Plan Goals of Care -DNR-CCA/DNI, OK ICU transfer -Gonzalo Deluca retains capacity for medical decision-making -HCPOA: daughter Karishma [phone] - Another emergency contact listed is son Jace [phone] -goals of care: To continue current medical management, to get better; pt working towards returning home but states she knows facility/ 11/10 care may be better moving forward -OPERATIONS MANAGEMENT PROFESSIONALS: pt admitted from [facility] -see subjective for details of conversation -has [...] -PRN Tylenol Debility -increased weakness -admitted from [facility] -PT/OT as able -2nd admission since July [...] with primary attending or other consultants, Electronic blood bank order control clerk of medications, tests or procedures, Counseling and [...] have a palliative team follow her at [facility]. Discuss that [facility] does not follow [...] single Children: 2 adult child(kyler) Living status: fdc Work history: Retired due to disability Sedan status: No Hindu: None ROS: See palliative care ROS/ESAS below; All other systems were reviewed and are negative. [place] Symptom Assessment Score [place] Score Pain Score (if non-verbal, add .FLACC [...] Note Initiated: yes Nilesh Frey, DB - DENTIST [1] Past Medical History: Diagnosis Date Abnormal [...] nodules Near syncope 09/19/2023 Osteoporosis Palpitations Pneumonia [id number] Recurrent major depression Sciatica Thoracic compression fracture [...] Fontenot MD at 01/13/2025 2:44 PM EDT Shidonni Work Phone: 01-13-2025 Progress note Formatting of t his note is different from the original. Images from the original note were not included. [facility] Palliative Care Transitions [...] PO intake Debility -increased weakness -admitted from [facility] -PT/OT as able -2nd admission since July 2024 CODE STATUS DISCUSSIONS: -Gonzalo Deluca retains capacity for medical decision-making -HCPOA: demetrice Schwarz [phone] - Another emergency contact listed is son Jcae [phone] - pt admitted from [facility] - met with patient this am, introduced self and role - patient was calm, comfortable, stated she is feeling better - Code status already DNRCCA/DNI - patient stated her goal is to get better and go back to [facility] - provided empathetic listening and emotional support to patient - discussed with bedside RN SYMPTOM MANAGEMENT MEDICATIONS: - not prescribed by our team DISPOSITION: TBD FACILITY/HOME CARE AGENCY NAME: TBD Follow up with Nursing facility Reason for Outpatient/Home/ECF Palliative Care follow-up: N/A Opiate Prescribing - not prescribed by our team SIGNED: Nilesh Frey APRN - DENTIST 01/13/2025, 8:47 AM [facility] 01-12-2025 Emergency department Note Pt transported to new room on monitor with medic and RN. Pt awake and alert and oriented on transport. All belongings with pt. [facility] 01-12-2025 Emergency department Note Pt transported to new room on monitor with medic and RN. Pt awake and alert and oriented on transport. All belongings with pt. Report to TWINE REELING MACHINE OPERATOR at this time. All questions answered. Pt Daughter Karishma Updated at this time as well. All questions answered. RT called for NIV placement. Emergency Department Encounter [facility] ED Patient: Gonzalo Deluca : 1955 Date [...] for shortness of breath. Patient coming from care home facility. 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 Patient has a history of COPD [...] In compliance with this authorization, please visit [email or web address]/[email or web address] or [email or web address].[email or web address]/[email or web address] to access the applicable information sheets. [...] - Normal ETHANOL IN SER/PLAS <10 Narrative: ASSET RECOVERY SPECIALIST depression is seen >100 mg/dL. 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 She has a [...] Reformed smoker. She currently resides in a care home facility. ED diagnostics interpreted by me included [...] specified. DISCHARGE MEDICATIONS: Current Discharge Medication List @[facility]([id number]:LAST:1)@ (Please note: Portions of this note were [...] nodules Near syncope 09/19/2023 Osteoporosis Palpitations Pneumonia [id number] Recurrent major depression Sciatica Thoracic compression fracture [...] - Unmet Transportation Needs (06/06/2024) Received from [facility] - Transportation Lack of Transportation (Medical): Yes Lack of Transportation (Non-Medical): No Physical Activity: Insufficiently Active (07/31/2024) Exercise Vital Sign Days of Exercise per Week: 3 days Minutes of Exercise per Session: 20 min Stress: No Stress Concern Present (07/31/2024) Citizen [place] of Occupational Health - Occupational Stress Questionnaire Feeling of Stress : Only a little Recent Concern: Stress - Stress Concern Present (06/06/2024) Received from [facility] [place] of Occupational Health - Occupational Stress Questionnaire Feeling of Stress : To some extent Social Connections: Socially Isolated (07/31/2024) Social Connection and Isolation Panel [NHANES] Frequency of Communication with Friends and Family: Three times a week Frequency of Social Gatherings with Friends and Family: Three times a week Attends Gnosticist Services: Never Active Member of Clubs or [...] 2:29 PM EDT documented in this encounter [facility] 01-12-2025 Emergency department Note Report to TWINE REELING MACHINE OPERATOR at this time. All questions answered. Pt Daughter Karishma Updated at this time as well. All questions answered. [facility] 01-12-2025 History and physical note Images from the original note were not included. Internal Medicine: MICU Initial History and Physical Name: Gonzalo Deluca : 1955(69 y.o.) Date: 01/12/25 Attending: Dr. Lynn Subjective: Chief Complaint: Shortness of breath respiratory failure HPI: Patient is a 69-year-old female with known history of advanced emphysema, chronic respiratory failure on supplemental oxygen lives at the [facility]care facility brought to the emergency room today [...] - Unmet Transportation Needs (06/06/2024) Received from [facility] - Transportation Lack of Transportation (Medical): Yes Lack of Transportation (Non-Medical): No Physical Activity: Insufficiently Active (07/31/2024) Exercise Vital Sign Days of Exercise per Week: 3 days Minutes of Exercise per Session: 20 min Stress: No Stress Concern Present (07/31/2024) Citizen [place] of Occupational Health - Occupational Stress Questionnaire Feeling of Stress : Only a little Recent Concern: Stress - Stress Concern Present (06/06/2024) Received from [facility] [place] of Occupational Health - Occupational Stress Questionnaire Feeling of Stress : To some extent Social Connections: Socially Isolated (07/31/2024) Social Connection and Isolation Panel [NHANES] Frequency of Communication with Friends and Family: Three times a week Frequency of Social Gatherings with Friends and Family: Three times a week Attends Gnosticist Services: Never Active Member of Clubs or [...] Normal [] Scar/Lesion/Mass Inspection of teeth/lips/gums Dentition: [][place] Teeth []Dentures Lips/Gums: []Intact []Lesion Present Mucosa: [][place] []Moist []Dry Neck: External Appearance Overall Appearance: [...] 13.9 -- ABGs: Recent Labs 01/12/25 0946 [id number] Nasal Cannula (LPM) Lactic Acid: Recent Labs [...] nodules Near syncope 09/19/2023 Osteoporosis Palpitations Pneumonia [id number] Recurrent major depression Sciatica Thoracic compression fracture (HCC) Vitamin D deficiency [2] Past Surgical History: Procedure Laterality Date CYSTOSCOPY 01/12/2017 OFFICE PROCEDURE CYSTOSCOPY 02/11/2017 C&P bladder biopsy EYE SURGERY detached retina 1994 HYSTERECTOMY 11/06/2019 ABDOMINAL RADICAL HYSTERECTOMY WITH BSO AND PELVIC LYMPH; DR. ZIYAD MENENDEZ [facility] OTHER SURGICAL HISTORY Left 12/19/2019 Med [...] [4] Allergies Allergen Reactions Pollen Extract Unknown [facility] [email or web address] 01-12-2025 Note [facility] [email or web address] [facility] 01-12-2025 History and physical note [...] - Unmet Transportation Needs (06/06/2024) Received from [facility] PRAP[facility] - Transportation Lack of Transportation (Medical): Yes Lack of Transportation (Non-Medical): No Physical Activity: Insufficiently Active (07/31/2024) Exercise Vital Sign Days of Exercise per Week: 3 days Minutes of Exercise per Session: 20 min Stress: No Stress Concern Present (07/31/2024) [place] of Occupational Health - Occupational Stress Questionnaire Feeling of Stress : Only a little Recent Concern: Stress - Stress Concern Present (06/06/2024) Received from [facility] [place] of Occupational Health - Occupational Stress Questionnaire Feeling of Stress : To some extent Social Connections: Socially Isolated (07/31/2024) Social Connection and Isolation Panel [NHANES] Frequency of Communication with Friends and Family: Three times a week Frequency of Social Gatherings with Friends and Family: Three times a week Attends Gnosticist Services: Never Active Member of Clubs or [...] Normal [] Scar/Lesion/Mass Inspection of teeth/lips/gums Dentition: [][place] Teeth []Dentures Lips/Gums: []Intact []Lesion Present Mucosa: [][place] []Moist []Dry Neck: External Appearance Overall Appearance: [...] 13.9 -- ABGs: Recent Labs 01/12/25 0946 [id number] Nasal Cannula (LPM) Lactic Acid: Recent Labs [...] nodules Near syncope 09/19/2023 Osteoporosis Palpitations Pneumonia [id number] Recurrent major depression Sciatica Thoracic compression fracture (HCC) Vitamin D deficiency [2] Past Surgical History: Procedure Laterality Date CYSTOSCOPY 01/12/2017 OFFICE PROCEDURE CYSTOSCOPY 02/11/2017 C&P bladder biopsy EYE SURGERY detached retina 1994 HYSTERECTOMY 11/06/2019 ABDOMINAL RADICAL HYSTERECTOMY WITH BSO AND PELVIC LYMPH; DR. ZIYAD MENENDEZ [facility] OTHER SURGICAL HISTORY Left 12/19/2019 Med [...] Pollen Extract Unknown documented in this encounter [facility] 01-12-2025 Emergency department Note RT called for NIV placement. [facility] 01-12-2025 Physician Emergency department Note Emergency Department Encounter [facility] ED Patient: Gonzalo Deluca : 1955 Date [...] for shortness of breath. Patient coming from care home facility. She has a history of COPD [...] for clarification.) Freddy Linder MD Acute Care [facility] Freddy Linder MD 01/12/25 1003 [facility] 01-12-2025 Physician Emergency department Note [facility] INTENSIVE CARE UNIT ICU 2 eMERGENCY dEPARTMENT [...] of local fire rescue squad from a care home facility. Patient has a history of COPD [...] In compliance with this authorization, please visit [email or web address].gov/media/[email or web address] d or [email or web address].gov/media/[email or web address] d to access the applicable information sheets. [...] - Normal ETHANOL IN SER/PLAS <10 Narrative: ASSET RECOVERY SPECIALIST depression is seen >100 mg/dL. 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 She has a [...] Reformed smoker. She currently resides in a care home facility. ED diagnostics interpreted by me included [...] specified. DISCHARGE MEDICATIONS: Current Discharge Medication List @[facility]([id number]:LAST:1)@ (Please note: Portions of this note were [...] nodules Near syncope 09/19/2023 Osteoporosis Palpitations Pneumonia 07493009 Recurrent major depression Sciatica Thoracic compression fracture ([facility]) Vitamin D deficiency [2] Past [...] - Unmet Transportation Needs (06/06/2024) Received from [facility] - Transportation Lack of Transportation (Medical): Yes Lack of Transportation (Non-Medical): No Physical Activity: Insufficiently Active (07/31/2024) Exercise Vital Sign Days of Exercise per Week: 3 days Minutes of Exercise per Session: 20 min Stress: No Stress Concern Present (07/31/2024) Citizen [place] of Occupational Health - Occupational Stress Questionnaire Feeling of Stress : Only a little Recent Concern: Stress - Stress Concern Present (06/06/2024) Received from [facility] of Occupational Health - Occupational Stress Questionnaire Feeling of Stress : To some extent Social Connections: Socially Isolated (07/31/2024) Social Connection and Isolation Panel [NHANES] Frequency of Communication with Friends and Family: Three times a week Frequency of Social Gatherings with Friends and Family: Three times a week Attends Gnosticist Services: Never Active Member of Clubs or [...] Linder MD at 01/13/2025 2:29 PM EDT [facility] 12-28-2024 Telephone encounter Note Had tele visit today with Gonzalo. As discussed with patient, I ordered CT chest 3 month follow up for new nodules measuring up to 7 mm. Also ordered PFTs, she request this test be ordered late morning or early afternoon. Could we please get both test scheduled and let her know. ~ thank you [facility] 12-28-2024 Miscellaneous Notes Had tele visit today with Gonzalo. As discussed with patient, I ordered CT chest 3 month follow up for new nodules measuring up to 7 mm. Also ordered PFTs, she request this test be ordered late morning or early afternoon. Could we please get both test scheduled and let her know. ~ thank you documented in this encounter [facility] 12-28-2024 History of Presen t illness Narrative Images from the original note were not included. [facility] Pulmonary Medicine [address] [place] [address] Date of Service: 12/28/2024 Visit type: An [...] doing so much better. Currently staying at [facility] for rehabilitation. Ready to go home [...] then improved. Was treated in house at [facility] with antibiotics - CT chest [...] treating dyspnea with benefits - eating what research worker encyclopedia has recommended while at care home facility FOLLOW UP: No follow-ups on file. [...] cancer Neg Hx documented in this encounter [facility] 12-28-2024 History of Presen t illness [...] that they are currently in the state [facility]. If the patient is a minor, permission has been obtained by the parent or guardian for the patient to receive medical care at this visit. [facility] Pulmonary Medicine [address] [place] [address] Date of Service: 12/28/2024 Visit type: An Established patient Chief Complaint/Reason for Referral: No chief complaint on file. SUBJECTIVE History of Present Illness: Gonzalo Ferris Amybenji ( 1955) is a 69 y.o. female patient, with significant PMH of COPD, emphysema, chronic respiratory failure 3L, pulmonary nodule, sciatica, and tobacco use being seen for pulmonary follow up Spoke with Gonzalo on the phone today, unable to connect via audio. Gonzalo reports she is doing so much better. Currently staying at [facility] for rehabilitation. Ready to go home [...] pulmonary function test due to being at [facility]. Like us to get that rescheduled requesting [...] then improved. Was treated in house at [facility] with antibiotics - CT chest [...] treating dyspnea with benefits - eating what research worker encyclopedia has recommended while at care home facility FOLLOW UP: No follow-ups on file. [...] Recurrent major depression Sciatica Thoracic compression fracture ([facility]) Vitamin D deficiency [2] Past [...] cancer Neg Hx documented in this encounter [facility] 12-18-2024 Telephone encounter Note We have been unable to reach your patient to schedule their testing. Test Name: Complete PFT pre and post bronchodilator with FENO Patient canceled 10/24/24 and 12/04/24 [facility] 12-18-2024 Miscellaneous Notes We have been unable to reach your patient to schedule their testing. Test Name: Complete PFT pre and post bronchodilator with FENO Patient canceled 10/24/24 and 12/04/24 documented in this encounter [facility] 09-10-2024 Telephone encounter Note Prescription Refill [...] Weathers MA September 10, 2024 9:01 AM [facility] 09-10-2024 Miscellaneous Notes Prescription Refill Information [...] 2024 9:01 AM documented in this encounter [facility] 09-07-2024 Telephone encounter Note Spoke to Nilesh from [facility] and scheduled patient for a follow up on 09/24@10am. Patient has not been seen for quite a while and also is requesting port removal to be scheduled. [facility] 09-07-2024 Miscellaneous Notes Spoke to Nilesh from [facility] and scheduled patient for a follow up on 09/24@10am. Patient has not been seen for quite a while and also is requesting port removal to be scheduled. Nilesh from [facility] pt's port was flushed but there was no blood draw back. Patient requested for the port to be removed due to not being used for roughly 1 year. Please contact Nilesh with further questions at [phone] documented in this encounter [facility] 09-07-2024 Telephone encounter Note Nilesh from [facility] pt's port was flushed but there was no blood draw back. Patient requested for the port to be removed due to not being used for roughly 1 year. Please contact Nilesh with further questions at [phone] [facility] 09-06-2024 History of Presen t [...] All questions answered. documented in this encounter [facility] 09-03-2024 Telephone encounter Note Noted. Melva Juárez PA-C [facility] 09-03-2024 Miscellaneous Notes Noted. Melva Juárez PA-C Patient returned call and LVM. Called and spoke with patient Patient was admitted to hospital and recently discharged to a [facility], patient's daughter had submitted request in anticipation of discharge. [facility] is currently managing medications, no longer [...] 2024 2:19 PM documented in this encounter [facility] 09-03-2024 Telephone encounter Note Patient returned call and LVM. Called and spoke with patient Patient was admitted to hospital and recently discharged to a [facility], patient's daughter had submitted request in anticipation of discharge. [facility] is currently managing medications, no longer in need Unsure of anticipated discharge, and if it will be to assisted living or back to home. Will plan to keep office aware. [facility] 08-29-2024 Telephone encounter Note Called patient, no answer at this time. Left voicemail to call the office back. [facility] 08-28-2024 Telephone encounter Note Patient had 30 pills filled on on 08/22. Is she following up with a different provider for prescriptions? [facility] 08-22-2024 Telephone encounter Note Prescription Refill [...] August 22, 2024 2:19 PM [facility] 08-20-2024 Telephone encounter Note Prescription Refill [...] Parks LPN August 20, 2024 11:39 AM [facility] 08-20-2024 Miscellaneous Notes Prescription Refill Information [...] 2024 11:39 AM documented in this encounter [facility] 08-20-2024 History of Presen t illness Narrative Images from the original note were not included. [facility] Pulmonary Medicine [address] [place] [address] Date of Service: 08/20/2024 Visit type: An Established patient Chief Complaint/Reason for Referral: Hospital Follow-up (COPD,PSA/MSSA/STREP LRTI/ESTABLISH PULM OUTPATIENT...) SUBJECTIVE History of Present Illness: Gonzalo Deluca ( 1955) is a 68 y.o. female patient, with significant PMH of COPD, emphysema, chronic respiratory failure 3L, pulmonary nodule, sciatica, and tobacco use being seen for pulmonary hospital follow up Admitted [facility] 07/30/2024 - 08/08/2024 pulmonology was consulted for triple bacterial pneumonia, treated for pseudomona, moraxella and Streptoccus, on top of severe pneumonia, with increased oxygen requirements and chronic respiratory failure. Failure to thrive. Chronic resp failure with severe emphysema, 3L baseline O2. Treated with Dulera, Spiriva. Reports significant weight loss of 40 lbs over the past few months. [facility] Presents today with son, states breathing is better than before the hospital. Wearing 3L supplemental continuous oxygen today. SpO2 is 92%, does not appear distressed. Staying at [facility] for care home and has been beneficial. Follows with palliative care for dyspnea, taking oxycodone and has been helping. Reports has gained some weight since breathing has improved and being at care home facility. Expressed to keep up whatever [...] Acute on chronic respiratory failure with hypoxia ([facility]) - continue supplemental oxygen, baseline 3L NC. Maintain SpO2 88-92% 3. Centrilobular emphysema ([facility]) - CT chest does show severe emphysema [...] left lower lobe, unspecified aspiration pneumonia type ([facility]) - CT chest with new wedge shaped [...] at this time 7. Severe malnutrition (CMS/HCC) ([facility]) - pulmonary cachexia; palliative following and treating dyspnea with benefits - trying to gain weight since breathing has improved - eating what research worker encyclopedia has recommended while at care home facility FOLLOW UP: Follow up in [...] 09/19/2023 Osteoporosis Palpitations Pneumonia Recurrent major depression ([facility]) Sciatica Thoracic compression fracture ([facility]) Vitamin D deficiency [2] Past [...] cancer Neg Hx documented in this encounter [facility] 08-20-2024 Instructions Rosalee Marvin - 08/20/2024 10:30 AM EDT YOUR APPOINTMENT TODAY WAS WITH THE [facility], COPD CLINIC, PULMONARY AND SLEEP MEDICINE OFFICE. PLEASE CALL OUR OFFICE AT [phone] for our [place] office location or [phone] for our [place] location, IF YOU HAVE NOT RECEIVED YOUR [...] to make improvements. COVID-19 VACCINATION INFORMATION: PH. [phone] [email or web address] [facility] Central Scheduling [phone] [facility] Sleep Scheduling [phone] documented in this encounter [facility] 08-14-2024 Telephone encounter Note Prescription [...] Weathers MA August 14, 2024 10:39 AM [facility] 08-14-2024 Miscellaneous Notes Prescription Refill Information [...] 2024 10:39 AM documented in this encounter [facility] 08-08-2024 Nurse Note Called report to [facility]. Pickup scheduled for 3:30pm. [facility] 08-08-2024 [facility] scheduled for [facility]:30pm. Wound Care consulted for Pressure Injury Prevention. Pt's Jeri score= 17 on 08/08 Pt's pressure points assessed. Pt stood independently for posterior assessment. Pt's Heels, Buttocks/coccyx, Back, Right elbow, Occiput and ears all intact. Cast in place to left upper extremity. [place] and healed area noted to coccyx. [place] and blanchable tissues noted to bilateral heels. [...] Rosalina Cross RN documented in this encounter [facility] 08-08-2024 History of Presen t illness Narrative Pt has been seen by palliative care during this hospital admission. Provider suggested referral to outside pall care provider at [facility]. Referral sent to [facility], faxed to documented in this encounter [facility] 08-08-2024 Nurse Note Wound Care consulted for Pressure Injury Prevention. Pt's Jeri score= 17 on 08/08 Pt's pressure points assessed. Pt stood independently for posterior assessment. Pt's Heels, Buttocks/coccyx, Back, Right elbow, Occiput and ears all intact. Cast in place to left upper extremity. [place] and healed area noted to coccyx. [place] and blanchable tissues noted to bilateral heels. [...] any questions or concerns. Rosalina Cross RN [facility] 08-08-2024 Note Formatting of this n ote might be different from the original. Rounds this am DCP: [facility] Called to notify Karishma/dtr: [facility] has overturned the Denial and is approved to go to [facility] Transport arranged for 330pm. Tasked to BUSINESS ANALYTICS SPECIALIST to complete 7,000 Send AVS and Mar to facility Facility is updated RN and MD notified [facility] 08-08-2024 Note Formatting of this n ote might be different from the original. Rounds this am DCP: [facility] Called to notify Karishma/dtr: [facility] has overturned the Denial and is approved to go to [facility] Transport arranged for 330pm. Tasked to BUSINESS ANALYTICS SPECIALIST to complete 7,000 Send AVS and Mar to facility Facility is updated RN and MD notified [facility] 08-08-2024 Miscellaneous Notes Rounds this am DCP: [facility] Called to notify Karishma/dtr: [facility] has overturned the Denial and is approved to go to [facility] Transport arranged for 330pm. Tasked to BUSINESS ANALYTICS SPECIALIST to complete 7,000 Send AVS and Mar to facility Facility is updated RN and notified Patient Choice Patient Name: GONZALO DELUCA Date of : 1955 All Providers Sent Referral Name: Vinicius Alvarez CPAN Member Phone: [phone] Address: [address] [place] [address] Name: [facility] Phone: [phone] Address: [address] [place] [address] Name: [facility] Phone: [phone] Address: [address] [place] [address] Name: [facility] ([facility] Phone: [phone] Address: [address] [place] [address] MAR, Discharge med list transmitted and 7000 [facility] per TCC request. Problem: Knowledge [...] -Notified Dr. Beverly -Updated clinicals faxed to [phone] -If the appeal process is upheld, pt will have to go home with [facility]. -freelance digital project manager to follow and assist as needed. [...] denying SNF. [place] asked [place] go to [place]. She is in the process of trying to get to [facility] through her waiver services. She started [...] Appeals number given to pt to call: [phone]. Appeals fax number: [phone]. Pt was calling as this CM was walking out of her room. 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 Spoke with patients daughter Karishma, regarding dc plans, who states that they would like to ideally get patient into care home and then get patient over to [facility] under Medicaid. This will require an insurance appeal for the care home facility. Shared this discussion with the [...] submit an appeal. The appeal number for [facility] is [phone] and fast appeal fax [phone] is not open on the weekend and this will need to be initiated on Tuesday. Discussed with patient and she wanted to discuss with her daughter prior to deciding to pursue appeal or discharge home with [facility]. She did state that her daughter [...] discharge needs are met Outcome: Progressing Called [facility] and spoke with Xiao and insurance is requesting peer to peer to be completed by 5/19 at 12 noon central standard time. Number for peer to peer is [phone] option 5. Will need members name, and [...] Goal: Promote nutritional intake Outcome: Progressing Tasked [facility] rifle case repairer to follow for pending auth to [facility]. 7000 will need to be completed at the time of discharge. 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 Sent updated notes to [facility] via [facility] per TCC request. Await review and response regarding ability to accept. TCC notified. Care Management Progress Note -Discharge plan is [facility] -Tasked [facility] building cleaning supervisor to start auth. -Tasked BUSINESS ANALYTICS SPECIALIST to send updated clinical notes to facility. -freelance digital project manager to follow for auth approval and [...] are met Outcome: Progressing Referral placed [facility] request. Await review and response regarding ability to accept. TCC notified. Care Management Progress Note -Spoke with pt at bedside for SNF choices. -Pt would like referrals sent to [facility], [facility], [facility], and [facility]. -Tasked [facility] to send those referrals. -Will speak with pt again once facility responses are in for facility of choice. -freelance digital project manager to follow and assist as needed. Length of Stay (Days): 1 GMLOS: No GMLOS Documented -Spoke with pt and she has chosen [facility] as FOC. Informed facility. ADOD is [address] Bishop. Anticipate starting auth tomorrow. 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 [...] case she decides before then on choices. -freelance digital project manager to follow and assist as needed. [...] My discharge needs are met Outcome: Progressing Manager Company following case for Discharge Needs. Images from the original note were not included. [facility] Palliative Care Transitions [...] short of breath when trying to eat. -[employer] would be helpful. -BMI 15.28 -Albumin-->3.0 -Monitor. [...] Skilled Rehab Facility FACILITY/HOME CARE AGENCY NAME: [facility] Follow up with [facility] [...] 5L last read documented in this encounter [facility] 08-08-2024 Note Formatting of this n ote might be different from the original. Patient Choice Patient Name: GONZALO DELUCA Date of : 1955 All Providers Sent Referral Name: Vinicius AMAYA Member Phone: [phone] Address: [address] [place] [address] Name: [facility] Phone: [phone] Address: [address] [place] [address] Name: [facility] Phone: [phone] Address: [address] [facility] [place] [address] Name: [facility] (formerly [facility]) Phone: [phone] Address: [address] [place] [address] [facility] 08-08-2024 Note Formatting of this n ote might be different from the original. Patient Choice Patient Name: GONZALO DELUCA Date of : 1955 All Providers Sent Referral Name: [facility] CPAN Member Phone: [phone] Address: [address] [place] [address] Name: [facility] Phone: [phone] Address: [address] [place] [address] Name: [facility] Phone: [phone] Address: [facility] [place] [address] Name: [facility] ([facility] Phone: [phone] Address: [address] [place] [address] T [facility] 08-08-2024 Note Formatting of this n ote might be different from the original. MAR, Discharge med list transmitted and 7000 in HENs to [facility] via [facility] per TCC request. [facility] 08-08-2024 Note Formatting of this n ote might be different from the original. MAR, Discharge med list transmitted and 7000 in HENs to [facility] via [facility] per TCC request. [facility] 08-08-2024 Note [facility] 08-08-2024 Hospital course Narrative Images [...] status. Recent healthcare interactions include consultations with [facility], palliative care, pulmonology, orthopedic surgery, geriatrics, [...] respiratory failure and severe emphysema. Plan: - SMOKING PIPE MOUNTER evaluation: recommended regular solids with thin liquids, [...] Plus 07/31/24 1030 07/31/24 1031 Supplement:HS Snack; Maceo Ensure Plus Until discontinued Question Answer Comment Frequency HS Snack Select supplement: Maceo Ensure Plus 07/31/24 1030 07/30/24 2313 Adult [...] Your Medications These medications were sent to [facility]/pharmacy #0070 [facility] [address] [facility] [address] PARoxetine 30 MG tablet You can get these medications from any pharmacy Bring a paper prescription for each of these medications morphine 15 MG tablet Information about where to get these medications is not yet available Ask your nurse or doctor about these medications albuterol (2.5 MG/3ML) 0.083% nebulizer solution folic acid 1 MG tablet QUEtiapine 50 MG tablet Recommended Follow-up: [facility] [address] [facility] [address] [facility] [address] Follow up Cognitive Evaluation Betsey Gresham MD [address] [facility] [address] Schedule an appointment as soon as possible for a visit in 3 week(s) Elyssa Tesfaye NP [address] [place] [address] Go on 08/20/2024 Pulmonary hospital follow up at 10:30 AM Complexity of Follow up: [] Moderate Complexity: follow up within 7-14 calendar days ([address]61) [x] Severe Complexity: follow up within 7 calendar days ([address]) Follow up Testing, Pending results or Referrals [...] Rena Beverly MD Division of Hospitalist Medicine [employer] [employer] 08/08/2024, 12:48 PM [1] Past Medical History: [...] Vitamin D deficiency documented in this encounter [facility] [email or web address] 08-08-2024 History of Presen t illness Narrative Patient chart reviewed and being rounded on. Note to follow. 6:29 AM 08/08/24 Rena Beverly MD Division of Hospitalist Medicine [facility] [employer] Images from the original note were not included. [facility], Pulmonary Medicine [address] [place], [place] [id number] Patient - Gonzalo Deluca, Age - 68 y.o. - 1955 Room Number - [id number] Consulting - Rena Beverly MD Primary Care Physician - [id number] Date of Admission - 07/30/2024 4:40 PM [...] She is not currently following with a drafter cartographic. She is on Breo ellipta, Spiriva, and [...] prosthetic devices, implants and grafts, initial encounter ([facility]) Chronic pain COPD (chronic obstructive pulmonary disease) ([facility]) DDD (degenerative disc disease), cervical Leukocytosis Malignant neoplasm of exocervix ([facility]) Recurrent major depression ([facility]) Pulmonary nodule S/P hysterectomy Sciatica Shortness of breath Supplemental oxygen dependent PNA (pneumonia) H/O: CVA (cerebrovascular accident) Former smoker Nondisplaced fracture of neck of left femur ([facility]) Lumbar compression fracture, closed, initial encounter (HCC) [...] status. Recent healthcare interactions include consultations with [facility], palliative care, pulmonology, orthopedic surgery, geriatrics, and [...] appeal process to try to get into care home facility. She denies any fever cough [...] of failure to thrive and debility - SMOKING PIPE MOUNTER evaluation: recommended regular solids with thin liquids, [...] signs, labs obtained, awaiting for appeal for care home facility, if that gets denied will [...] Primary Emergency Contact: Karishma Deluca Address: [address] [place] [address] [place] [address] [facility] Mobile Relation: Daughter Secondary Emergency Contact: Jace Deluca Mobile Relation: Son Rena Tuyet Beverly MD Division of Hospitalist Medicine [facility] [1] Past Medical History: Diagnosis Date [...] (interosseous) Fluid Accumulation: No significant fluid accumulation Death Surveys Coder Strength: Nutrition Assessment: per MD-BRIEF HOSPITAL COURSE: [...] status. Recent healthcare interactions include consultations with [facility], palliative care, pulmonology, orthopedic surgery, geriatrics, [...] 5.7 oz) % Weight Change (Calculated): -27.2 [place] Body Weight (lbs) (Calculated): 120 lbs [place] Body Weight (Kg) (Calculated): 55 kg % [place] Body Weight (Calculated): 74.2 % BMI (kg/m2) [...] Oral Nutrition Supplement Phillip Bradshaw RD Contact: *[phone] or secure chat [facility] Geriatric Medicine Inpatient Consult Service Admission [...] --Recommend outpatient follow up at [facility]) for more in depth [...] (L) 07/30/2024 Lab Results Component Value Date [id number] 07/30/2024 Lab Results Component Value Date VITD25 30 09/21/2023 [1] Current Facility-Administered Medications: acetaminophen (Tylenol) tablet 650 mg, 650 mg, Oral, q6h PRN OR acetaminophen (Tylenol) suppository 650 mg, 650 mg, Rectal, q6h PRN, Lauren Serna MD acetaminophen (Tylenol) tablet 650 mg, 650 mg, Oral, BID, Saad Haynese, SOUND PRINTER - DENTIST, 650 mg at 08/06/24 0841 albuterol (2.5 [...] Mini-Bag Plus, 2,000 mg, IntraVENous, q8h, Dejuan Bishpo MD, Last Rate: 12.5 mL/hr at 08/06/24 [...] 15 mg, Oral, q4h PRN, Imelda Bernard, SOUND PRINTER - DENTIST, 15 mg at 08/06/24 0856 naloxone (Narcan) injection 0.4 mg, 0.4 mg, IntraVENous, q5 min PRN, Lauren Serna MD ondansetron ODT (Zofran-ODT) disintegrating tablet 4 mg, 4 mg, Oral, q8h PRN OR ondansetron (Zofran) injection 4 mg, 4 mg, IntraVENous, q6h PRN, Lauren Serna MD PARoxetine (Paxil) tablet 30 mg, 30 mg, Oral, q AM, Saad Telles APRN - DENTIST, 30 mg at 08/06/24 0841 polyethylene glycol [...] mg, 10 mg, Oral, Daily, Leann Cross SOUND PRINTER - DENTIST QUEtiapine (SEROquel) tablet 50 mg, 50 mg, Oral, Nightly PRN, Saad Telles APRN - DENTIST, 50 mg at 08/05/24 2048 sodium chloride ([place]) 0.65 % nasal spray 2 spray, 2 spray, Each Nostril, q2h PRN, Dejuan Bishop MD, 2 spray at 08/02/24 1621 tiotropium (Spiriva Respimat) 2.5 MCG/ACT inhaler 2 puff, 2 puff, Inhalation, Daily, Lauren Serna MD, 2 puff at 08/06/24 0839 Images from the original note were not included. PHYSICAL THERAPY [facility] Treatment Note Name/MRN: Gonzalo Deluca ([id number]) Date of : 1955 Age: 68 y.o. Room/Bed: B2-254/B2-254 B Visit #: 5 out of 7 Discharge Recommendation: Care Home Facility Other: TBD at next level of [...] reciprocal stepping, B foot clearance, shuffling, narrow ASDIE, slow lauren, path deviations Multiple bouts of [...] from the original note were not included. [facility], Pulmonary Medicine [address] [place] [address] Patient - Gonzalo Deluca, Age - 68 y.o. - 1955 Room Number - B2-254/B2-254 B Consulting - Rena Beverly MD Primary Care Physician - HERMINIA CASE MD [facility] # - [id number] Date of Admission - 07/30/2024 4:40 PM [...] She is not currently following with a drafter cartographic. She is on Breo ellipta, Spiriva, and [...] prosthetic devices, implants and grafts, initial encounter ([facility]) Chronic pain COPD (chronic obstructive pulmonary disease) (HCC) DDD (degenerative disc disease), cervical Leukocytosis Malignant neoplasm of exocervix (HCC) Recurrent major depression (HCC) Pulmonary nodule S/P hysterectomy Sciatica Shortness of breath Supplemental oxygen dependent PNA (pneumonia) H/O: CVA (cerebrovascular accident) Former smoker Nondisplaced fracture of neck of left femur (HCC) Lumbar compression fracture, closed, initial encounter ([facility]) Severe malnutrition (CMS/HCC) ([facility]) Falls frequently Unintentional weight loss Debility PFO (patent foramen ovale) Adult failure to thrive Anxiety and depression Cognitive deficits At risk for delirium Images from the original note were not included. OCCUPATIONAL THERAPY [facility] Treatment Note Name/MRN: Gonzalo Deluca ([id number]) Date of : 1955 Age: 68 y.o. Room/Bed: [facility] B Visit #: 4 out of 6 [...] of SNF. Pt would likely benefit from ASSISTED for longer term needs. Subjective Pt sleeping [...] of failure to thrive and debility - SMOKING PIPE MOUNTER evaluation: recommended regular solids with thin liquids, [...] Primary Emergency Contact: Karishma Deluca Address: [address] [place] [address] [place] [address] [employer] Mobile Relation: Daughter Secondary Emergency Contact: Jace Deluca Mobile Relation: Son Rena Tuyet Beverly MD Division of Hospitalist Medicine [facility] [1] Past Medical History: Diagnosis Date Abnormal [...] original note were not included. PHYSICAL THERAPY [facility] Treatment Note Name/MRN: Gonzalo Deluca ([id number]) Date of : 1955 Age: 68 y.o. Room/Bed: B2254/B2-254 B Visit #: 4 out of 7 Discharge Recommendation: Care Home Facility Other: TBD at next level of [...] Raw Score (No Stairs) : 17 [facility] Score: Walked 10 steps or more [...] original note were not included. OCCUPATIONAL THERAPY [facility] Treatment Note Name/MRN: Gonzalo Deluca ([id number]) Date of : 1955 Age: 68 y.o. Room/Bed: [facility] B Visit #: 3 out of 6 Discharge Recommendation: Care Home Facility Equipment Needed: No Assessment Pt tolerated [...] from the original note were not included. [facility], Pulmonary Medicine [address] [place] [address] Patient - Gonzalo Deluca, Age - 68 y.o. 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 Recent healthcare interactions include consultations with [facility], palliative care, pulmonology, orthopedic surgery, geriatrics, and [...] of failure to thrive and debility - SMOKING PIPE MOUNTER evaluation: recommended regular solids with thin liquids, sitting upright, slow rate of intake, and small bites - Consider care home facility placement for comprehensive care - [...] Information Primary Emergency Contact: Karishma Deluca Address: [address] [place], [place] [id number] [facility] Mobile Relation: Daughter Secondary Emergency Contact: Jace Deluca Mobile Relation: Darshan Rena Tuyet Beverly MD Division of Hospitalist Medicine [facility] [1] Past Medical History: Diagnosis Date Abnormal [...] from the original note were not included. [facility], Pulmonary Medicine [address] [place] [address] Patient - Gonzalo Deluca, Age - 68 y.o. 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 [...] prosthetic devices, implants and grafts, initial encounter ([facility]) Chronic pain COPD (chronic obstructive pulmonary disease) ([facility]) DDD (degenerative disc disease), cervical Leukocytosis Malignant neoplasm of exocervix ([facility]) Recurrent major depression ([facility]) Pulmonary nodule S/P hysterectomy Sciatica Shortness of breath Supplemental oxygen dependent PNA (pneumonia) H/O: CVA (cerebrovascular accident) Former smoker Nondisplaced fracture of neck of left femur ([facility]) Lumbar compression fracture, closed, initial encounter ([facility]) Severe malnutrition (CMS/HCC) ([facility]) Falls frequently Unintentional weight loss [...] status. Recent healthcare interactions include consultations with [facility], palliative care, pulmonology, orthopedic surgery, geriatrics, [...] of failure to thrive and debility - SMOKING PIPE MOUNTER evaluation: recommended regular solids with thin liquids, sitting upright, slow rate of intake, and small bites - Consider care home facility placement for comprehensive care - [...] Emergency Contact Information Primary Emergency Contact: Karishma eDluca Address: [address] [place] [address] Mobile Relation: Daughter Secondary Emergency Contact: Jace Deluca Mobile Relation: Son Rena Beverly MD Division of Hospitalist Medicine [facility] [1] Past Medical History: Diagnosis Date Abnormal [...] original note were not included. PHYSICAL THERAPY [facility] Name/MRN: Gonzalo Deluca ([id number]) Date: 08/04/2024 Chart review completed this date. PT attempted. Pt supine. Receiving breathing treatments during first attempt second attempt patient requesting [employer] return after eating breakfast. Pt tray had not yet arrived. Max encouragement provided with no success. Multiple options for therapy participation provided with no success. PT will continue to follow. Will re-attempt another time/date as schedule permits. Salina Miller, [employer] Cosigned by Gracy Garza PT at 08/04/2024 1:15 PM EDT Nutrition note -received consult for poor jeri <12 . Jeri is 21 -already being followed by RD. [facility] Respiratory Care Department Progress Note As [...] (interosseous) Fluid Accumulation: No significant fluid accumulation Death Surveys Coder Strength: Nutrition Assessment: 68 year old woman who remains admitted to [facility] at direction of PCP with FTT- +falls, [...] 122.35# 09/08/23) % Weight Change (Calculated): -24.3 [place] Body Weight (lbs) (Calculated): 120 lbs [place] Body Weight (Kg) (Calculated): 55 kg % [place] Body Weight (Calculated): 77.2 % BMI (kg/m2) [...] Nutrition Supplement Celeste Garcia RDN, LDN, Contact: *[phone] [facility] Geriatric Medicine Inpatient Consult Service Admission [...] into [place] waiver --08/03: Discharge plan is [facility] when medically stable Severe Malnutrition [...] note, this was the dose recommended by [facility] psychiatry when she was hospitalized [...] --Recommend outpatient follow up at [facility] ([facility]) for more in depth [...] (L) 07/30/2024 Lab Results Component Value Date [id number] [id number] 07/30/2024 Lab Results Component Value Date VITD25 30 09/21/2023 [1] Current Facility-Administered Medications: acetaminophen (Tylenol) tablet 650 mg, 650 mg, Oral, q6h PRN OR acetaminophen (Tylenol) suppository 650 mg, 650 mg, Rectal, q6h PRN, Lauren Serna MD acetaminophen (Tylenol) tablet 650 mg, 650 mg, Oral, BID, Saad Ezzie, SOUND PRINTER - DENTIST, 650 mg at 08/03/24 0911 albuterol (2.5 [...] Oral, q4h PRN, Imelda Bernard APRN - DENTIST, 15 mg at 08/03/24908 naloxone (Narcan) injection 0.4 mg, 0.4 mg, IntraVENous, q5 min PRN, Lauren Serna MD ondansetron ODT (Zofran-ODT) disintegrating tablet 4 mg, 4 mg, Oral, q8h PRN OR ondansetron (Zofran) injection 4 mg, 4 mg, IntraVENous, q6h PRN, Lauren Serna MD PARoxetine (Paxil) tablet 30 mg, 30 mg, Oral, q AM, Saad Telles APRN - DENTIST, 30 mg at 08/03/24909 polyethylene glycol (PEG) [...] mg, Oral, Daily, Leann Cross APRN - DENTIST QUEtiapine (SEROquel) tablet 50 mg, 50 mg, Oral, Nightly PRN, Saad Telles SOUND PRINTER - DENTIST, 50 mg at 08/02/242047 sodium chloride ([place]) 0.65 % nasal spray 2 spray, 2 spray, Each Nostril, q2h PRN, Dejuan Bishop MD, 2 spray at 08/02/24 1621 tiotropium (Spiriva Respimat) 2.5 MCG/ACT inhaler 2 puff, 2 puff, Inhalation, Daily, Lauren Serna MD, 2 puff at 08/03/24 0915 Images from the original note were not included. PHYSICAL THERAPY [facility] Treatment Note Name/MRN: Gonzalo Deluca ([id number]) Date of : 1955 Age: 68 y.o. Room/Bed: [facility] B Visit #: 3 out of 7 visits Discharge Recommendation: Care Home Facility Other: TBD at next level of [...] original note were not included. OCCUPATIONAL THERAPY [facility] Treatment Note Name/MRN: Gonzalo Deluca ([id number]) Date of : 1955 Age: 68 y.o. Room/Bed: B2-254/B2-254 B Visit #: 2 out of 6 visits Discharge Recommendation: Care Home Facility Equipment Needed: No Prior Level of Function Prior Level of ADL Function: Independent Prior Level of Mobility: Independent; Device: Straight Cane Prior Level of Transfers: Independent Assessment Pt tolerated session fair, continues to be limited by fatigue and SOB. Pt completed bed mobility at Mod I. Pt completed x3 STS and LE dressing/bathing at [facility]. Pt completed seated UE bathing at Mod [...] doffed pants with unilateral UE support at [facility]. Pt demo no overt LoB. Pt demo threading LE clothing while seated and managed over hips in standing at [facility]. Pt doffed/donned austin socks while seated EOB with figure 4 tech at [facility] I. Pt completed seated face washing at EOB at [facility] I. Pt completed UE bathing while seated EOB with Mod A after set up. Pt with IV running and in personal shirt, unable to fully doff shirt for bathing. Pt required assist to wash R side due to LUE with cast. Pt completed standing LE bathing (periarea) at [facility]. Pt demo no overt LoB, generally unstable. Pt required seated rest break x2 due to increased SOB. Pt completed BLE bathing while seated without hands on assist Bed Mobility Supine to sit: Modified Independent Sit to supine: Modified Independent Scooting: Modified Independent HOB Elevated Use of bed rail(s) Pt completed all aspects of bed mobility with use of bed features at [facility] I. Pt able to maintain LUE NWB [...] Note 08/03/2024 Subjective: Admit Date: 07/30/2024 PCP: HERMIINA CASE MD Room#: B2-254/B2-254 [facility] [...] status. Recent healthcare interactions include consultations with [facility], palliative care, pulmonology, orthopedic surgery, geriatrics, and [...] of failure to thrive and debility - SMOKING PIPE MOUNTER evaluation: recommended regular solids with thin liquids, sitting upright, slow rate of intake, and small bites - Consider care home facility placement for comprehensive care - [...] Information Primary Emergency Contact: Nacho Delucai Address: [address] [place] [address] [place] [address] [employer] Mobile Relation: Daughter Secondary Emergency Contact: Jace Deluca Mobile Relation: Son Rena Tuyet Beverly MD Division of Hospitalist Medicine [facility] [1] Past Medical History: Diagnosis Date Abnormal [...] from the original note were not included. [facility], Pulmonary Medicine [address] [place] [address] Patient - Gonzalo Deluca, Age - 68 y.o. - 1955 Room Number - B2-254/B2-254 B Consulting - Rena Beverly MD Primary Care Physician - HER[id number] Date of Admission - 07/30/2024 4:40 PM [...] hematemesis melena hematuria Apparently not seeing any drafter cartographic recently Was on Dulera Spiriva and rescue inhaler compliant with the medication Not on NIV No PFT available in [facility] All other systems reviewed Objective [...] prosthetic devices, implants and grafts, initial encounter ([facility]) Chronic back pain COPD (chronic obstructive pulmonary disease) ([facility]) DDD (degenerative disc disease), cervical Leukocytosis Malignant neoplasm of exocervix ([facility]) Recurrent major depression ([facility]) Pulmonary nodule S/P hysterectomy Sciatica Shortness of breath Supplemental oxygen dependent PNA (pneumonia) H/O: CVA (cerebrovascular accident) Former smoker Nondisplaced fracture of neck of left femur ([facility]) Lumbar compression fracture, closed, initial encounter ([facility]) Severe malnutrition (CMS/HCC) ([facility]) Falls frequently Unintentional weight loss [...] short of breath when trying to eat. -[employer] would be helpful. -BMI 15.28 -Albumin-->3.0 -Monitor. [...] Improve or Maintain Function/Quality of Life, Preserve [place]/Autonomy/Control, and Remain at Home Advanced Directives: DNR-CCA, DNI Functional Assessment: PPS 70% amb reduced; can't do normal work/some disease; full self care; normal or reduced intake; full LOC Prognosis: depends upon goals of care Spiritual Assessment: No spiritual distress identified Bereavement and Grief: To Be Determined PDMP/OARRS Reviewed: Yes-reviewed ROS: See palliative care ROS/ESAS below; All other systems were reviewed and are negative. [place] Symptom Assessment Score [place] Score Pain Score (if non-verbal, add .FLACC [...] original note were not included. PHYSICAL THERAPY [facility] Treatment Note Name/MRN: Gonzalo Deluca ([id number]) Date of : 1955 Age: 68 y.o. Room/Bed: -254/[facility] B Visit #: 2 out of 7 visits Discharge Recommendation: Continue to assess pending progress, Care Home Facility Other: TBD at next level of [...] 10 Minutes (gait x1) Rayo Joseph PT [facility] Geriatric Medicine Inpatient Consult Service Admission [...] deficits. --Recommend outpatient follow up at [facility] ([facility]) for more in depth [...] fracture, Vitamin D deficiency, anxiety, presented to [facility] on 07/30/24 with complaints of weight loss [...] (L) 07/30/2024 Lab Results Component Value Date [id number] [id number] 07/30/2024 Lab Results Component Value Date [...] 15 mg, Oral, q4h PRN, Imelda Bernard, SOUND PRINTER - DENTIST, 15 mg at 08/02/24 1156 naloxone (Narcan) injection 0.4 mg, 0.4 mg, IntraVENous, q5 min PRN, Lauren Serna MD ondansetron ODT (Zofran-ODT) disintegrating tablet 4 mg, 4 mg, Oral, q8h PRN OR ondansetron (Zofran) injection 4 mg, 4 mg, IntraVENous, q6h PRN, Lauren Serna MD PARoxetine (Paxil) tablet 30 mg, 30 mg, Oral, q AM, Saad Telles, SOUND PRINTER - DENTIST, 30 mg at 08/02/24 0936 polyethylene glycol [...] CNP, 50 mg at 08/01/242032 sodium chloride ([place]) 0.65 % nasal spray 2 spray, 2 spray, Each Nostril, q2h PRN, Dejuan Bishop MD tiotropium (Spiriva Respimat) 2.5 MCG/ACT inhaler 2 puff, 2 puff, Inhalation, Daily, Lauren Serna MD, 2 puff at 08/02/24 0806 Hospitalist Progress Note 08/02/2024 [phone]: Please page me ([phone]) for patient care issues. [phone]: Please page [facility] night Hospitalist for any issues. Subjective: Admit Date: 07/30/2024 PCP: HERMINIA CASE MD Room#: B2-254/B2-254 B Interval History: Patient is sitting on the bed, still on 5 L nasal cannula saturating well. No signs of respiratory distress noticed Denies any cough or sputum production pain No other significant overnight issues. Adult diet Regular @[id number]@ 24HR INTAKE/OUTPUT: No intake or output data [...] prophylaxis: Lovenox daily. Disposition: PT OT recommending care home facility. Possible discharge in next 1 to 2 days. Pending Long arm cast placement -am labs, replace lytes prn -increase activity -DVT prophylaxis: [] Lovenox [] Heparin [] SCDs [x] Encourage ambulation [] Already on Anticoagulation Advance Directive: DNR-CCA Discharge planning: TBD Dejuan Bishop MD Division of Hospitalist Medicine Inpatient Medical Services/[facility] PAGER: [phone] Acute hypoxic respiratory failure [1] Past Medical [...] original note were not included. OCCUPATIONAL THERAPY [facility] Treatment Note Name/MRN: Gonzalo Deluca ([id number]) Date of : 1955 Age: 68 y.o. Room/Bed: [facility] B Visit #: 1 out of 6 visits Discharge Recommendation: Care Home Facility, Continue to assess pending progress Equipment [...] from the original note were not included. [facility], Pulmonary Medicine [address] [place] [address] Patient - Gonzalo Deluca, Age - 68 y.o. 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 [...] prosthetic devices, implants and grafts, initial encounter ([facility]) Chronic back pain COPD (chronic obstructive pulmonary disease) ([facility]) DDD (degenerative disc disease), cervical Leukocytosis Malignant neoplasm of exocervix (HCC) Recurrent major depression (HCC) Pulmonary nodule S/P hysterectomy Sciatica Shortness of breath Supplemental oxygen dependent PNA (pneumonia) H/O: CVA (cerebrovascular accident) Former smoker Nondisplaced fracture of neck of left femur ([facility]) Lumbar compression fracture, closed, initial encounter ([facility]) Severe malnutrition (CMS/HCC) ([facility]) Falls frequently Unintentional weight loss Debility PFO (patent foramen ovale) Adult failure to thrive Hospitalist Progress Note 08/01/2024 [phone]: Please page me ([phone]) for patient care issues. [phone]: Please page [facility] night Hospitalist for any issues. Subjective: Admit Date: 07/30/2024 PCP: HERMINIA CASE MD Room#: B2-254/B2-254 B Interval History: Patient is sitting on the chair, denies any chest pain shortness of breath or palpitations Denies any upper extremity pain. No other significant overnight issues. Adult diet Regular @[id number]@ 24HR INTAKE/OUTPUT: Intake/Output Summary (Last 24 hours) [...] prophylaxis: Lovenox daily. Disposition: PT OT recommending care home facility. Possible discharge in next 1 to 2 days. Pending Long arm cast placement -am labs, replace lytes prn -increase activity -DVT prophylaxis: [] Lovenox [] Heparin [] SCDs [x] Encourage ambulation [] Already on Anticoagulation Advance Directive: DNR-CCA Discharge planning: TBHetal Bishop MD Division of Hospitalist Medicine Inpatient Medical Services/[facility] PAGER: [phone] [1] Past Medical History: Diagnosis Date Abnormal [...] original note were not included. PHYSICAL THERAPY [facility] Treatment Note Name/MRN: Gonzalo Deluca ([id number]) Date of : 1955 Age: 68 y.o. Room/Bed: [facility] B Visit #: 1 out of 7 visits Discharge Recommendation: Continue to assess pending progress, Care Home Facility Other: TBD at next level of [...] Raw Score (No Stairs) : 15 [facility] Score: Walked 25 ft or more [...] Esparza PT at 08/01/2024 4:08 PM EDT [facility] Geriatric Medicine Inpatient Consult Service Admission [...] at [facility]) for more in depth [...] fracture, Vitamin D deficiency, anxiety, presented to [facility] on 07/30/24 with complaints of weight loss [...] (L) 07/30/2024 Lab Results Component Value Date [id number] 07/30/2024 Lab Results Component Value Date [...] mg, IntraVENous, q6h PRN, Lauren eSrna MD PARoxetine (Paxil) tablet 20 mg, 20 [...] not included. Speech-Language Pathology SPEECH LANGUAGE PATHOLOGY [facility] Dysphagia Treatment Note Patient Name: Gonzalo Deluca Evaluation Date: 08/01/2024 Date of : 1955 Admission Date: 07/30/2024 4:40 PM Age: 68 y.o. Room/Bed: [facility] B Subjective Patient alert and cooperative. Seen [...] Plus 07/31/24 1030 07/31/24 1031 Supplement:HS Snack; Maceo Ensure Plus Until discontinued Question Answer Comment Frequency HS Snack Select supplement: Maceo Ensure Plus 07/31/24 1030 07/30/24 2313 Adult [...] bites/sips Patient has achieved all acute care SMOKING PIPE MOUNTER goals. 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 -[place] [employer] would be helpful. -BMI 15.28 -Albumin-->3.0 -Monitor. [...] emphysema. -Pulmonology consulted, await recs. Discussed with SENIOR C SOFTWARE DEVELOPER Leann this AM. She will need follow [...] Improve or Maintain Function/Quality of Life, Preserve [place]/Autonomy/Control, and Remain at Home Advanced Directives: DNR Functional Assessment: PPS 70% amb reduced; can't do normal work/some disease; full self care; normal or reduced intake; full LOC Prognosis: depends upon goals of care Spiritual Assessment: No spiritual distress identified Bereavement and Grief: To Be Determined PDMP/OARRS Reviewed: Yes-reviewed ROS: See palliative care ROS/ESAS below; All other systems were reviewed and are negative. [place] Symptom Assessment Score [place] Score Pain Score (if non-verbal, add .FLACC [...] 07/30/2024 PLT 225 07/30/2024 Hospitalist Progress Note 07/31/[id number]: Please page me ([phone]) for patient care issues. [phone]: Please page IMS night Hospitalist for any issues. Subjective: Admit Date: 07/30/2024 PCP: HERMINIA CASE MD Room#: [facility] B Interval History: Patient is sitting on the bed, denies any chest pain or shortness of breath. Denies any abdominal pain nausea or vomitings No other significant overnight issues. Adult diet Regular @[id number]@ 24HR INTAKE/OUTPUT: Intake/Output Summary (Last 24 hours) [...] prophylaxis: Lovenox daily. Disposition: PT OT recommending care home facility. Possible discharge in next 1 to 2 days. Pending Long arm cast placement -am labs, replace lytes prn -increase activity -DVT prophylaxis: [] Lovenox [] Heparin [] SCDs [x] Encourage ambulation [] Already on Anticoagulation Advance Directive: DNR-CCA Discharge planning: TBD Dejuan Bishop MD Division of Hospitalist Medicine Inpatient Medical Services/[facility] PAGER: [phone] [1] Past Medical History: Diagnosis Date Abnormal [...] not included. Speech-Language Pathology SPEECH LANGUAGE PATHOLOGY [facility] SPEECH THERAPY DIET RECOMMENDATIONS Diet: Regular solids (SOFT CHOICES as NEEDED)and Thin liquids Medications: as tolerated Precautions: - Upright positioning for all PO intake - Slow rate of intake - Small bites/sips Images from the original note were not included. PHYSICAL THERAPY [facility] Initial Evaluation Name/MRN: Gonzalo Deluca ([id number]) Evaluation Date: 07/31/2024 Date of : 1955 Admission Date: 07/30/2024 4:40 PM Age: 68 y.o. Room/Bed: [facility] B Discharge Recommendation: Continue to assess pending progress, Care Home Facility Other: TBD at next level of [...] Diagnosis Date Noted Severe malnutrition ([facility]/H[facility]) ([facility]) 07/31/2024 Adult failure to thrive 07/30/2024 Falls frequently 09/20/2023 Unintentional weight loss 09/20/2023 Debility 09/20/2023 PFO (patent foramen ovale) 09/20/2023 Lumbar compression fracture, closed, initial encounter ([facility]) 02/13/2023 Nondisplaced fracture of neck of left femur ([facility]) 11/06/2022 Other specified complication of vascular prosthetic devices, implants and grafts, initial encounter ([facility]) 08/06/2021 Poor venous access 12/19/2019 H/O: CVA (cerebrovascular accident) 12/14/2019 Malignant neoplasm of exocervix ([facility]) 11/07/2019 S/P hysterectomy 11/07/2019 PNA (pneumonia) 08/02/2019 Leukocytosis 04/13/2018 Shortness of breath 04/13/2018 DDD (degenerative disc disease), cervical 04/12/2018 Recurrent major depression ([facility]) 04/12/2018 Chronic back pain 04/10/2017 COPD (chronic obstructive pulmonary disease) ([facility]) 04/10/2017 Pulmonary nodule 04/10/2017 Sciatica [...] Responsibilities: Independent Receives Help From: Family Active Fountain Dispenser: N/A Prior Level of Function Prior Level [...] of Care supervision is transferred to a [facility] Therapy Services Physical Therapist. Goals [...] major depression (HCC) Sciatica Thoracic compression fracture ([facility]) Vitamin D deficiency [2] Past Surgical History: Procedure Laterality Date CYSTOSCOPY 01/12/2017 OFFICE PROCEDURE CYSTOSCOPY 02/11/2017 C&P bladder biopsy EYE SURGERY detached retina 1994 HYSTERECTOMY 11/06/2019 ABDOMINAL RADICAL HYSTERECTOMY WITH BSO AND PELVIC LYMPH; DR. ZIYAD MENENDEZ [facility] OTHER SURGICAL HISTORY Left 12/19/2019 Med Port POWER Regular Size OTHER SURGICAL HISTORY Left 11/07/2022 Percutaneous skeltal fixation femoral fracture TUBAL LIGATION 1992 Images from the original note were not included. Speech-Language Pathology SPEECH LANGUAGE PATHOLOGY [facility] Bedside Swallow Evaluation Patient Name: Gonzalo Deluca Evaluation Date: 07/31/2024 Date of : 1955 Admission Date: 07/30/2024 4:40 PM Age: 68 y.o. Room/Bed: [facility] B IMPRESSION: No s/s oropharyngeal dysphagia. No [...] needed. Pt would benefit from skilled acute SMOKING PIPE MOUNTER services Ensure patient tolerance of the recommended [...] be evaluated. Dysphagia History: No history of SMOKING PIPE MOUNTER services in EMR with retrospective chart review Baseline Diet: Regular diet with thin liquids Current Diet: Dietary Orders (From admission, onward) Start Ordered 07/31/24 1031 Supplement:AM Snack, PM Snack; Vanilla Ensure Plus Until discontinued Question Answer Comment Frequency AM Snack Frequency PM Snack Select supplement: Vanilla Ensure Plus 07/31/24 1030 07/31/24 1031 Supplement:HS Snack; Maceo Ensure Plus Until discontinued Question Answer Comment Frequency HS Snack Select supplement: Maceo Ensure Plus 07/31/24 1030 07/30/24 2313 Adult [...] Diagnosis Date Noted Severe malnutrition ([facility]) ([facility]) 07/31/2024 Adult failure to thrive 07/30/2024 Falls frequently 09/20/2023 Unintentional weight loss 09/20/2023 Debility 09/20/2023 PFO (patent foramen ovale) 09/20/2023 Lumbar compression fracture, closed, initial encounter ([facility]) 02/13/2023 Nondisplaced fracture of neck of left femur ([facility]) 11/06/2022 Other specified complication of vascular prosthetic devices, implants and grafts, initial encounter ([facility]) 08/06/2021 Poor venous access 12/19/2019 H/O: CVA (cerebrovascular accident) 12/14/2019 Malignant neoplasm of exocervix ([facility]) 11/07/2019 S/P hysterectomy 11/07/2019 PNA (pneumonia) 08/02/2019 Leukocytosis 04/13/2018 Shortness of breath 04/13/2018 DDD (degenerative disc disease), cervical 04/12/2018 Recurrent major depression ([facility]) 04/12/2018 Chronic back pain 04/10/2017 COPD (chronic obstructive pulmonary disease) ([facility]) 04/10/2017 Pulmonary nodule 04/10/2017 Sciatica [...] States was sent by PCP Shortness of Gcosod47 y.o. who presents to the emergency department [...] Start: 07/31/24 Expected End: 08/07/24 Therapy Time SMOKING PIPE MOUNTER Individual Minutes Time In: 1518 Time Out: [...] BSO AND PELVIC LYMPH; DR. ZIYAD MENENDEZ [facility] OTHER SURGICAL HISTORY Left 12/19/2019 Med Port POWER Regular Size OTHER SURGICAL HISTORY Left 11/07/2022 Percutaneous skeltal fixation femoral fracture TUBAL LIGATION 1992 Images from the original note were not included. PHYSICAL THERAPY [facility] Name/MRN: Gonzalo Deluca ([id number]) Date: 07/31/2024 Chart review completed. Patient is [...] not here- denies issues -denies assist status- SMOKING PIPE MOUNTER ordered per MNT protocol , will initiate [...] (interosseous) Fluid Accumulation: No significant fluid accumulation Death Surveys Coder Strength: na Nutrition Assessment: per MD-CHIEF COMPLAINT [...] lb) (08/06/24) % Weight Change (Calculated): -28.8 [place] Body Weight (lbs) (Calculated): 120 lbs [place] Body Weight (Kg) (Calculated): 55 kg % [place] Body Weight (Calculated): 74.2 % BMI (kg/m2) [...] Oral Nutrition Supplement Phillip Bradshaw RD Contact: *[phone] or secure chat documented in this encounter [facility] 08-08-2024 Plan of care note [...] by Sadie Rodriguez RN Outcome: Not Progressing [facility] 08-08-2024 Plan of care note [...] Goal: Promote nutritional intake Outcome: Not Progressing [facility] 08-07-2024 Note Formatting of this n ote might be different from the original. Care Management Progress Note -Pt started the appeals process yesterday for denied SNF stay. We now have 72 hours for a response from her insurance. -Notified Dr. Beverly -Updated clinicals faxed to [phone] -If the appeal process is upheld, pt will have to go home with [facility]. -freelance digital project manager to follow and assist as needed. Length of Stay (Days): 6 GMLOS: 5.2 [facility] 08-07-2024 Note Formatting of this n ote might be different from the original. Care Management Progress Note -Pt started the appeals process yesterday for denied SNF stay. We now have 72 hours for a response from her insurance. -Notified Dr. Beverly -Updated clinicals faxed to [phone] -If the appeal process is upheld, pt will have to go home with [facility]. -freelance digital project manager to follow and assist as needed. Length of Stay (Days): 6 GMLOS: 5.2 [facility] 08-06-2024 Plan of care note [...] Problem Interventions Goal: Dietary Supplements Outcome: Progressing [facility] 08-06-2024 Note Formatting of this n ote might be different from the original. Spoke with pt earlier in the day to to determine if she wants to appeal the P2P decision denying SNF. Pt asked to go to [place]. She is in the process of trying to get to [facility] through her waiver services. She started [...] Appeals number given to pt to call: [phone]. Appeals fax number: [phone]. Pt was calling as this CM was walking out of her room. 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 [facility] 08-06-2024 Note Formatting of this n ote might be different from the original. Spoke with pt earlier in the day to to determine if she wants to appeal the P2P decision denying SNF. Pt asked to go to [place]. She is in the process of trying to get to [facility] through her waiver services. She started [...] Appeals number given to pt to call: [phone]. Appeals fax number: [phone]. Pt was calling as this CM was walking out of her room. 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 T [facility] 08-06-2024 Note Formatting of this n ote might be different from the original. Spoke with patients demetrice Schwarz, regarding dc plans, who states that they would like to ideally get patient into care home and then get patient over to [facility] under Medicaid. This will require an insurance appeal for the care home facility. Shared this discussion with the TCC T [facility] 08-06-2024 Note Formatting of this n ote might be different from the original. Spoke with patients demetrice Schwarz, regarding dc plans, who states that they would like to ideally get patient into care home and then get patient over to [facility] under Medicaid. This will require an insurance appeal for the care home facility. Shared this discussion with the TCC [facility] 08-06-2024 Plan of care note [...] My discharge needs are met Outcome: Progressing [facility] 08-06-2024 Plan of care note [...] integrity is maintained or improved Outcome: Progressing [facility] 08-05-2024 Plan of care note [...] Interventions Goal: Assess Nutritional Intake Outcome: Progressing [facility] 08-05-2024 Plan of care note [...] Progressing Goal: Promote nutritional intake Outcome: Progressing [facility] 08-04-2024 Note Formatting of this n ote might be different from the original. Was updated by attending that peer to peer was denied and patient would need to submit an appeal. The appeal number for [facility] is [phone] and fast appeal fax [phone] is not open on the weekend and this will need to be initiated on Tuesday. Discussed with patient and she wanted to discuss with her daughter prior to deciding to pursue appeal or discharge home with [facility]. She did state that her daughter was interested in getting her into an assistive living and that she has medicaid. Will update weekday TCC to follow.. [facility] 08-04-2024 Note Formatting of this n ote might be different from the original. Was updated by attending that peer to peer was denied and patient would need to submit an appeal. The appeal number for [facility] is [phone] and fast appeal fax [phone] is not open on the weekend and this will need to be initiated on Tuesday. Discussed with patient and she wanted to discuss with her daughter prior to deciding to pursue appeal or discharge home with [facility]. She did state that her daughter was interested in getting her into an assistive living and that she has medicaid. Will update weekday TCC to follow.. [facility] 08-04-2024 Plan of care note [...] My discharge needs are met Outcome: Progressing [facility] 08-04-2024 Note Formatting of this n ote might be different from the original. Called [facility] and spoke with [employer] is requesting peer to peer to be completed by 08/06 at 12 noon central standard time. Number for peer to peer is [phone] option 5. Will need members name, and ID number. Physicians are available 8-5 over the weekend central standard time. Did update attending with information to complete peer to peer. . [facility] 08-04-2024 Note Formatting of this n ote might be different from the original. Called [facility] and spoke with [employer] and [email or web address] is requesting peer to peer to be completed by 08/06 at 12 noon central standard time. Number for peer to peer is [phone] option 5. Will need members name, and ID number. Physicians are available 8-5 over the weekend central standard time. Did update attending with information to complete peer to peer. . [facility] 08-04-2024 Plan of care note [...] Progressing Goal: Promote nutritional intake Outcome: Progressing [facility] 08-03-2024 Note Formatting of this n ote might be different from the original. Tasked weekend rifle case repairer to follow for pending auth to [facility]. 7000 will need to be completed at the time of discharge. 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 [facility] 08-03-2024 Note Formatting of this n ote might be different from the original. Tasked weekend rifle case repairer to follow for pending auth to [facility]. 7000 will need to be completed at the time of discharge. 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 [facility] 08-03-2024 Note Formatting of this n ote might be different from the original. Sent updated notes to [facility] per TCC request. Await review and response regarding ability to accept. TCC notified. [facility] 08-03-2024 Note Formatting of this n ote might be different from the original. Sent updated notes to [facility] per TCC request. Await review and response regarding ability to accept. TCC notified. [facility] 08-03-2024 Note Formatting of this n ote might be different from the original. Care Management Progress Note -Discharge plan is [facility] -Tasked BUSINESS ANALYTICS SPECIALIST building cleaning supervisor to start auth. -Tasked BUSINESS ANALYTICS SPECIALIST to send updated clinical notes to facility. -freelance digital project manager to follow for auth approval and assist as needed. Length of Stay (Days): 2 GMLOS: 4.1 T [facility] 08-03-2024 Note Formatting of this n ote might be different from the original. Care Management Progress Note -Discharge plan is [facility] -Tasked BUSINESS ANALYTICS SPECIALIST building cleaning supervisor to start auth. -Tasked BUSINESS ANALYTICS SPECIALIST to send updated clinical notes to facility. -freelance digital project manager to follow for auth approval and assist as needed. Length of Stay (Days): 2 GMLOS: 4.1 T [facility] 08-03-2024 Plan of care note [...] Goal: Assess Nutritional Intake Outcome: Progressing T [facility] 08-03-2024 Plan of care note [...] My discharge needs are met Outcome: Progressing [facility] 08-02-2024 Note Formatting of this n ote might be different from the original. Referral placed to [facility] via [facility] per TCC request. Await review and response regarding ability to accept. TCC notified. [facility] 08-02-2024 Note Formatting of this n ote might be different from the original. Referral placed to [facility] via [facility] per TCC request. Await review and response regarding ability to accept. TCC notified. [facility] 08-02-2024 Note Formatting of this n ote might be different from the original. Care Management Progress Note -Spoke with pt at bedside for SNF choices. -Pt would like referrals sent to [facility], [facility], [facility], and [facility]. -Tasked BUSINESS ANALYTICS SPECIALIST to send those referrals. -Will speak with pt again once facility responses are in for facility of choice. -freelance digital project manager to follow and assist as needed. Length of Stay (Days): 1 GMLOS: No GMLOS Documented -Spoke with pt and she has chosen [facility] as FOC. Informed facility. ADOD is [address] Bishop. Anticipate starting auth tomorrow. 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 [facility] 08-02-2024 Note Formatting of this n ote might be different from the original. Care Management Progress Note -Spoke with pt at bedside for SNF choices. -Pt would like referrals sent to [facility], [facility], [facility], and [facility]. -Tasked BUSINESS ANALYTICS SPECIALIST to send those referrals. -Will speak with pt again once facility responses are in for facility of choice. -freelance digital project manager to follow and assist as needed. Length of Stay (Days): 1 GMLOS: No GMLOS Documented -Spoke with pt and she has chosen [facility] as FOC. Informed facility. ADOD is [address] Bishop. Anticipate starting auth tomorrow. 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 [facility] 08-02-2024 Plan of care note [...] My discharge needs are met Outcome: Progressing [facility] 08-02-2024 Hospital Discharg e instructions [...] Primary Emergency Contact: Karishma Deluca [address]: [address] [place] [address] [place] [address] [facility] Mobile Relation: Daughter Secondary Emergency Contact: Jace Deluca Mobile Relation: Son Past Surgical History: Past Surgical History: Procedure Laterality Date CYSTOSCOPY 01/12/2017 OFFICE PROCEDURE CYSTOSCOPY 02/11/2017 C&P bladder biopsy EYE SURGERY detached retina 1994 HYSTERECTOMY 11/06/2019 ABDOMINAL RADICAL HYSTERECTOMY WITH BSO AND PELVIC LYMPH; DR. ZIYAD MENENDEZ [facility] OTHER SURGICAL HISTORY Left 12/19/2019 Med [...] Dressing Independent Toileting Minimal assistance Feeding Independent Hide Trimmer Minimal assistance Med Delivery yes Wound Care [...] Date: 07/30/24 Discharging to Facility/ Agency Name: [facility] Address: [address] [place] [address] Fax: Dialysis Facility (if applicable) Name: Address: Dialysis Schedule: Phone: Fax: It Systems Manager/[employer]ed [employer] Boards Contact Printer signature: ICIAN SECTION Name: Gonzalo Deluca Prognosis: fair Condition at Discharge: stable Rehab Potential (if transferring to Rehab): good Recommended Labs or Other Treatments After Discharge: CBC and CMP The individual is being admitted to a nursing facility directly from an [facility] or a unit of a [facility] that is not operated by or licensed by [facility] under section 5119.14 or 5160-3-15.1 5 The individual requires the level of services provided by a nursing facility for the condition for which he or she was treated in the hospital and, Physician Certification: I certify the above information and transfer of Gonzalo Deluca is necessary for the continuing treatment of the diagnosis listed and that she requires care home facility for less than 30 days. [...] status. Recent healthcare interactions include consultations with [facility], palliative care, pulmonology, orthopedic surgery, geriatrics, and [...] respiratory failure and severe emphysema. Plan: - SMOKING PIPE MOUNTER evaluation: recommended regular solids with thin liquids, [...] adjustments PHYSICIAN SIGNATURE: documented in this encounter [facility] 08-02-2024 Plan of care note [...] My discharge needs are met Outcome: Progressing [facility] 08-01-2024 Note Formatting of this [...] case she decides before then on choices. -freelance digital project manager to follow and assist as needed. Length of Stay (Days): 1 GMLOS: No GMLOS Documented [facility] 08-01-2024 Note Formatting of this [...] case she decides before then on choices. -freelance digital project manager to follow and assist as needed. Length of Stay (Days): 1 GMLOS: No GMLOS Documented [facility] 08-01-2024 Consult note Formatting of th is note is different from the original. [facility], Pulmonary Medicine [address] [place] [id number] Patient - Gonzalo Deluca - 1955 Date [...] hematemesis melena hematuria Apparently not seeing any drafter cartographic recently Was on Dulera Spiriva and rescue inhaler compliant with the medication Not on NIV No PFT available in [facility] Medical History Past Medical History [...] - Unmet Transportation Needs (06/06/2024) Received from [facility] PRAPARE - Transportation Lack of Transportation (Medical): Yes Lack of Transportation (Non-Medical): No Physical Activity: Insufficiently Active (07/31/2024) Exercise Vital Sign Days of Exercise per Week: 3 days Minutes of Exercise per Session: 20 min Stress: No Stress Concern Present (07/31/2024) Citizen [place] of Occupational Health - Occupational Stress Questionnaire Feeling of Stress : Only a little Recent Concern: Stress - Stress Concern Present (06/06/2024) Received from [facility] [place] of Occupational Health - Occupational Stress Questionnaire Feeling of Stress : To some extent Social Connections: Socially Isolated (07/31/2024) Social Connection and Isolation Panel [NHANES] Frequency of Communication with Friends and Family: Three times a week Frequency of Social Gatherings with Friends and Family: Three times a week Attends Gnosticist Services: Never Active Member of Clubs or [...] 325 ml Output -- Net 325 ml @[id number]@ Physical Exam General appearance: Awake, alert, no [...] be severe no current PFT available on [facility] 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 [...] prosthetic devices, implants and grafts, initial encounter ([facility]) Chronic back pain COPD (chronic obstructive pulmonary disease) ([facility]) DDD (degenerative disc disease), cervical Leukocytosis Malignant neoplasm of exocervix ([facility]) Recurrent major depression ([facility]) Pulmonary nodule S/P hysterectomy Sciatica Shortness of breath Supplemental oxygen dependent PNA (pneumonia) H/O: CVA (cerebrovascular accident) Former smoker Nondisplaced fracture of neck of left femur ([facility]) Lumbar compression fracture, closed, initial encounter ([facility]) Severe malnutrition (CMS/HCC) ([facility]) Falls frequently Unintentional weight loss Debility PFO (patent foramen ovale) Adult failure to thrive [2] Past Medical History: Diagnosis Date Abnormal stress test Acute exacerbation of chronic obstructive pulmonary disease ([facility]) 04/12/2018 Allergic rhinitis Arthritis Asthma Bronchitis Cancer (CMS/HCC) ([facility]) skin Cervical cancer (HCC) Chest [...] BSO AND PELVIC LYMPH; DR. ZIYAD MENENDEZ [facility] OTHER SURGICAL HISTORY Left 12/19/2019 Med [...] [8] Allergies Allergen Reactions Pollen Extract Unknown [facility] 08-01-2024 Consult note Formatting of th is note is different from the original. [facility], Pulmonary Medicine [address] [place] [id number] [id number] 1955 Date of Admission - 07/30/2024 [...] hematemesis melena hematuria Apparently not seeing any drafter cartographic recently Was on Dulera Spiriva and rescue [...] - Unmet Transportation Needs (06/06/2024) Received from [facility] PRAPARE - Transportation Lack of Transportation (Medical): Yes Lack of Transportation (Non-Medical): No Physical Activity: Insufficiently Active (07/31/2024) Exercise Vital Sign Days of Exercise per Week: 3 days Minutes of Exercise per Session: 20 min Stress: No Stress Concern Present (07/31/2024) Citizen [place] [facility] Occupational [facility] - Occupational Stress Questionnaire Feeling of Stress : Only a little Recent Concern: Stress - Stress Concern Present (06/06/2024) Received from [facility] of Occupational Health - Occupational Stress Questionnaire Feeling of Stress : To some extent Social Connections: Socially Isolated (07/31/2024) Social Connection and Isolation Panel [NHANES] Frequency of Communication with Friends and Family: Three times a week Frequency of Social Gatherings with Friends and Family: Three times a week Attends Gnosticist Services: Never Active Member of Clubs or [...] 325 ml Output -- Net 325 ml @[id number]@ Physical Exam General appearance: Awake, alert, no [...] be severe no current PFT available on [facility] 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 [...] prosthetic devices, implants and grafts, initial encounter ([facility]) Chronic back pain COPD (chronic obstructive pulmonary disease) ([facility]) DDD (degenerative disc disease), cervical Leukocytosis Malignant neoplasm of exocervix ([facility]) Recurrent major depression ([facility]) Pulmonary nodule S/P hysterectomy Sciatica Shortness of breath Supplemental oxygen dependent PNA (pneumonia) H/O: CVA (cerebrovascular accident) Former smoker Nondisplaced fracture of neck of left femur ([facility]) Lumbar compression fracture, closed, initial encounter ([facility]) Severe malnutrition (CMS/HCC) ([facility]) Falls frequently Unintentional weight loss Debility PFO (patent foramen ovale) Adult failure to thrive [2] Past Medical History: Diagnosis Date Abnormal stress test Acute exacerbation of chronic obstructive pulmonary disease ([facility]) 04/12/2018 Allergic rhinitis Arthritis Asthma Bronchitis Cancer (CMS/HCC) ([facility]) skin Cervical cancer ([facility]) Chest pain COPD (chronic obstructive pulmonary disease) ([facility]) USE OXYGEN 3 L AT [...] not here- denies issues -denies assist status- SMOKING PIPE MOUNTER ordered per MNT protocol , will initiate [...] (interosseous) Fluid Accumulation: No significant fluid accumulation Death Surveys Coder Strength: na Associated Order(s): IP CONSULT TO [...] -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 -[employer] would be helpful. -BMI 15.28 -Albumin-->3.0 -Monitor. [...] with primary attending or other consultants, Electronic blood bank order control clerk of medications, tests or procedures, Obtaining [...] detailed in the note above. Imelda Bernard, SOUND PRINTER - DENTIST Palliative Care Assessments: Goals of care: Continue Current Management, Live Longer, extend life as much as possible, Improve or Maintain Function/Quality of Life, Preserve [place]/Autonomy/Control, and Remain at Home Advanced Directives: DNR Functional Assessment: PPS 70% amb reduced; can't do normal work/some disease; full self care; normal or reduced intake; full LOC Prognosis: depends upon goals of care Spiritual Assessment: No spiritual distress identified Bereavement and Grief: To Be Determined PDMP/OARRS Reviewed: Yes-reviewed Social history: Marital status: Children: not addressed Living status: with daughter Work history: retired [employer] status: No Gnosticist sharla: None ROS: See palliative care ROS/ESAS below; All other systems were reviewed and are negative. [place] Symptom Assessment Score [place] Score Pain Score (if non-verbal, add .FLACC [...] BSO AND PELVIC LYMPH; DR. ZIYAD MENENDEZ [facility] OTHER SURGICAL HISTORY Left 12/19/2019 Med [...] EDT Associated Order(s): IP CONSULT TO GERIATRICS [facility] Geriatric Medicine Inpatient Consult Service Admission [...] at [facility] for more in depth [...] fracture, Vitamin D deficiency, anxiety, presented to [facility] on 07/30/24 with complaints of weight loss [...] memory issues for a year with progression. [place] she was managing her medications ok. Daughter [...] 350 ms QTC Interval 439 ms P Hammond 53 degrees QRS Hammond -35 degrees T Wave [place] 43 degrees AR Interval 137 ms CBC auto differential Collection [...] BSO AND PELVIC [facility] OTHER [facility]GICAL HISTORY Left 12/19/2019 Med Port [...] Chest pain COPD (chronic obstructive pulmonary disease) ([facility]) USE OXYGEN 3 L AT NIGHT DDD (degenerative disc disease), cervical Defect, retina, with detachment right DJD (degenerative joint disease), lumbar Emphysema lung ([facility]) Former smoker Hematuria SCHEDULED FOR THE PROCEDURE /SURGERY ON 02/11/2017 Hypokalemia Lung nodules Near syncope 09/19/2023 Osteoporosis Palpitations Pneumonia Recurrent major depression ([facility]) Sciatica Thoracic compression fracture ([facility]) Vitamin D deficiency [2] Past [...] cancer Neg Hx documented in this encounter [facility] 08-01-2024 Plan of care note Problem: [...] My discharge needs are met Outcome: Progressing [facility] 07-31-2024 Note Formatting of this n ote might be different from the original. Manager Company following case for Discharge Needs. [facility] 07-31-2024 Note Formatting of this n ote might be different from the original. Manager Company following case for Discharge Needs. [facility] 07-31-2024 Consult note Associated Order (s): IP CONSULT TO DIETITIAN Images from the original note were not included. Nutrition Assessment Type and Reason for Visit: Initial, Consult (poor po - needs high calorie supplement) Nutrition Recommendations/Plan: Suggest to continue regular diet to promote intake. 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 -[employer] would be helpful. -BMI 15.28 -Albumin-->3.0 -Monitor. [...] with primary attending or other consultants, Electronic blood bank order control clerk of medications, tests or procedures, Obtaining [...] detailed in the note above. Imelda Bernard, SOUND PRINTER - DENTIST Palliative Care Assessments: Goals of care: Continue Current Management, Live Longer, extend life as much as possible, Improve or Maintain Function/Quality of Life, Preserve [place]/Autonomy/Control, and Remain at Home Advanced Directives: DNR [...] with daughter Work history: retired status: No Gnosticist sharla: None ROS: See palliative care ROS/ESAS below; All other systems were reviewed and are negative. [place] Symptom Assessment Score [place] Score Pain Score (if non-verbal, add .FLACC [...] hospice appropriate? Eligible, but not consistent with [facility] at this time Transition Note [...] BSO AND PELVIC LYMPH; [facility] OTHER [facility]GICAL HISTORY Left 12/19/2019 [...] Allergen Reactions Pollen Extract Unknown Cosigned by Rtuh العراقي MD at 08/01/2024 5:26 PM EDT [facility] 07-31-2024 Note Formatting of this n ote is different from the original. Images from the original note were not included. [facility] Palliative Care Transitions of Care Note Gonzalo Dleuca : 1955 ADMIT DATE: 07/30/2024 DISCHARGE DATE: [...] short of breath when trying to eat. -[employer] would be helpful. -BMI 15.28 -Albumin-->3.0 -Monitor. [...] Skilled Rehab Facility FACILITY/HOME CARE AGENCY NAME: [facility] Follow up with [facility] on [...] SIGNED: DB Aggarwal CNP 08/03/2024, 10:20 AM [facility] 07-31-2024 Note Formatting of this n ote is different from the original. Images from the original note were not included. [facility] Palliative Care Transitions [...] short of breath when trying to eat. -[employer] would be helpful. -BMI 15.28 -Albumin-->3.0 -Monitor. [...] Skilled Rehab Facility FACILITY/HOME CARE AGENCY NAME: [facility] Follow up with [facility] Palliative Care on [...] SIGNED: DB Aggarwal CNP 08/03/2024, 10:20 AM [facility] 07-31-2024 Note Formatting of this [...] scheduled appointment 93% on 5L last read [facility] 07-31-2024 Note Formatting of this [...] scheduled appointment 93% on 5L last read [facility] 07-31-2024 Consult note Associated Order (s): IP CONSULT TO GERIATRICS [facility] Geriatric Medicine Inpatient Consult Service Admission [...] at [facility] for more in depth [...] fracture, Vitamin D deficiency, anxiety, presented to [facility] on 07/30/24 with complaints of weight loss [...] memory issues for a year with progression. [place] she was managing her medications ok. Daughter [...] 350 ms QTC Interval 439 ms P Hammond 53 degrees QRS Hammond -35 degrees T Wave Hammond 43 degrees AR Interval 137 ms CBC auto differential Collection [...] Bronchitis Cancer (CMS/HCC) (HCC) skin Cervical cancer ([facility]) Chest pain COPD (chronic obstructive pulmonary disease) ([facility]) USE OXYGEN 3 L AT NIGHT DDD (degenerative disc disease), cervical Defect, retina, with detachment right DJD (degenerative joint disease), lumbar Emphysema lung ([facility]) Former smoker Hematuria SCHEDULED FOR THE PROCEDURE /SURGERY ON 02/11/2017 Hypokalemia Lung nodules Near syncope 09/19/2023 Osteoporosis Palpitations Pneumonia Recurrent major depression ([facility]) Sciatica Thoracic compression fracture ([facility]) Vitamin D deficiency [4] Past Surgical History: Procedure Laterality Date CYSTOSCOPY 01/12/2017 OFFICE PROCEDURE CYSTOSCOPY 02/11/2017 C&P bladder biopsy EYE SURGERY detached retina 1994 HYSTERECTOMY 11/06/2019 ABDOMINAL RADICAL HYSTERECTOMY WITH BSO AND PELVIC LYMPH; DR. ZIYAD MENENDEZ [facility] OTHER SURGICAL HISTORY Left 12/19/2019 Med Port POWER Regular Size OTHER SURGICAL HISTORY Left 11/07/2022 Percutaneous skeltal fixation femoral fracture TUBAL LIGATION 1992 [5] Family History Problem Relation Name Age of Onset Colon cancer Neg Hx Ovarian cancer Neg Hx Cancer Mother breast- to liver Cancer Sister breast Cancer Father lung to brain No Known Problems Brother Uterine cancer Neg Hx [facility] 07-31-2024 Consult note Associated Order [...] BSO AND PELVIC LYMPH; DR. ZIYAD MENENDEZ [facility] OTHER SURGICAL HISTORY Left 12/19/2019 Med Port POWER Regular Size OTHER SURGICAL HISTORY Left 11/07/2022 Percutaneous skeltal fixation femoral fracture TUBAL LIGATION 1992 [3] Family History Problem Relation Name Age of Onset Colon cancer Neg Hx Ovarian cancer Neg Hx Cancer Mother breast- to liver Cancer Sister breast Cancer Father lung to brain No Known Problems Brother Uterine cancer Neg Hx [facility] 07-30-2024 History and physical note History and Physical [facility] Gonzalo Deluca : 1955 AGE 68 [...] Chest pain COPD (chronic obstructive pulmonary disease) ([facility]) USE OXYGEN 3 L AT NIGHT DDD (degenerative disc disease), cervical Defect, retina, with detachment right DJD (degenerative joint disease), lumbar Emphysema lung (HCC) Former smoker Hematuria SCHEDULED FOR THE PROCEDURE /SURGERY ON 02/11/2017 Hypokalemia Lung nodules Near syncope 09/19/2023 Osteoporosis Palpitations Pneumonia Recurrent major depression (HCC) Sciatica Thoracic compression fracture ([facility]) Vitamin D deficiency Past Surgical [...] 07/30/2024 350 QTC Interval 07/30/2024 439 P Hammond 07/30/2024 53 QRS Hammond 07/30/2024 -35 T Wave Hammond 07/30/2024 43 AR Interval 07/30/2024 137 Auto WBC 07/30/2024 8.9 [...] QT Interval 350 QTC Interval 439 P Hammond 53 QRS Hammond -35 T Wave Hammond 43 AR Interval 137 Impression Sinus rhythm Left axis [...] placed in a splint. She has seen [facility] orthopedics in the past they will be [...] Time spent on admission 07/30/2024 Gonzalo Deluca [id number] Any scheduled follow up appointments Future Appointments Date Time Provider Department Center 09/04/2024 2:30 PM [facility] 1 [facility] None Extended Emergency Contact Information Primary Emergency Contact: Karishma Deluca [address]: [address] [place] [address] [place] [id number] [facility] Mobile Relation: Daughter Secondary Emergency Contact: Jace Deluca Mobile Relation: Son Portions of this note may be electronically transcribed. Please forward a copy of this H&P to the primary care physician. [facility] [email or web address] Work Phone: 07-30-2024 Note [facility] 07-30-2024 History and physical note History and Physical [facility] Gonzalo Deluca : 1955 AGE 68 [...] Allergic rhinitis Arthritis Asthma Bronchitis Cancer (CMS/HCC) ([facility]) skin Cervical cancer ([facility]) Chest pain COPD (chronic obstructive pulmonary disease) ([facility]) USE OXYGEN 3 L AT NIGHT DDD (degenerative disc disease), cervical Defect, retina, with detachment right DJD (degenerative joint disease), lumbar Emphysema lung ([facility]) Former smoker Hematuria SCHEDULED FOR THE PROCEDURE /SURGERY ON 02/11/2017 Hypokalemia Lung nodules Near syncope 09/19/2023 Osteoporosis Palpitations Pneumonia Recurrent major depression ([facility]) Sciatica Thoracic compression fracture ([facility]) Vitamin D deficiency Past Surgical History: Procedure Laterality Date CYSTOSCOPY 01/12/2017 OFFICE PROCEDURE CYSTOSCOPY 02/11/2017 C&P bladder biopsy EYE SURGERY detached retina 1994 HYSTERECTOMY 11/06/2019 ABDOMINAL RADICAL HYSTERECTOMY WITH BSO AND PELVIC LYMPH; DR. ZIYAD MENENDEZ [facility] OTHER SURGICAL HISTORY Left 12/19/2019 Med [...] 07/30/2024 350 QTC Interval 07/30/2024 439 P Hammond 07/30/2024 53 QRS Hammond 07/30/2024 -35 T Wave [place] 07/30/2024 43 AR Interval 07/30/2024 137 Auto WBC 07/30/2024 8.9 [...] QT Interval 350 QTC Interval 439 P Hammond 53 QRS Hammond -35 T Wave Hammond 43 AR Interval 137 Impression Sinus rhythm Left axis [...] placed in a splint. She has seen [facility] orthopedics in the past they will be [...] Time spent on admission 07/30/2024 Gonzalo Deluca [id number] Any scheduled follow up appointments Future Appointments Date Time Provider Department Center 09/04/2024 2:30 PM [facility] 1 [facility] None Extended Emergency Contact Information Primary Emergency Contact: Karishma Deluca Address: [address] [place] [address] [place] [address] [facility] Mobile Relation: Daughter Secondary Emergency Contact: RaudelsumeetJace leblanc Mobile Relation: Son Portions of this note may be electronically transcribed. Please forward a copy of this H&P to the primary care physician. documented in this encounter [facility] 07-30-2024 Emergency department Note Associated [...] Acute exacerbation of chronic obstructive pulmonary disease ([facility]) 04/12/2018 Allergic rhinitis Arthritis Asthma Bronchitis Cancer ([facility]/HCC) ([facility]) skin Cervical cancer ([facility]) Chest pain COPD (chronic obstructive pulmonary disease) ([facility]) USE OXYGEN 3 L AT NIGHT DDD (degenerative disc disease), cervical Defect, retina, with detachment right DJD (degenerative joint disease), lumbar Emphysema lung ([facility]) Former smoker Hematuria SCHEDULED FOR THE PROCEDURE /SURGERY ON 02/11/2017 Hypokalemia Lung nodules Near syncope 09/19/2023 Osteoporosis Palpitations Pneumonia Recurrent major depression ([facility]) Sciatica Thoracic compression fracture ([facility]) Vitamin D deficiency SURGICAL HISTORY [...] Resource Strain: Low Risk (06/06/2024) Received from [facility] Overall Financial Resource Strain (CARDIA) Difficulty of Paying Living Expenses: Not very hard Food Insecurity: No Food Insecurity (06/06/2024) Received from [facility] Hunger Vital Sign Worried About Running Out of Food in the Last Year: Never true Ran Out of Food in the Last Year: Never true Transportation Needs: Unmet Transportation Needs (06/06/2024) Received from [facility] PRAPARE - Transportation Lack of Transportation (Medical): Yes Lack of Transportation (Non-Medical): No Physical Activity: Inactive (06/06/2024) Received from [facility] Exercise Vital Sign Days of Exercise per Week: 0 days Minutes of Exercise per Session: 0 min Stress: Stress Concern Present (06/06/2024) Received from [facility] Citizen Of [place] [facility] Occupational Health - Occupational Stress Questionnaire Feeling of Stress : To some extent Social Connections: Unknown (06/06/2024) Received from [facility] Social Connection and Isolation Panel [NHANES] Frequency of Communication with Friends and Family: Twice a week Frequency of Social Gatherings with Friends and Family: Never Attends Gnosticist Services: Never Active Member of Clubs or [...] swelling Alternatives discussed: Delayed treatment and referral Wilber protocol: Patient identity confirmed: Verbally with patient [...] DO 07/30/24 215 documented in this encounter [facility] 07-30-2024 Physician Emergency department Note [...] Chest pain COPD (chronic obstructive pulmonary disease) ([facility]) USE OXYGEN 3 L AT NIGHT DDD (degenerative disc disease), cervical Defect, retina, with detachment right DJD (degenerative joint disease), lumbar Emphysema lung ([facility]) Former smoker Hematuria SCHEDULED FOR [...] Resource Strain: Low Risk (06/06/2024) Received from [facility] Overall Financial Resource Strain (CARDIA) Difficulty of Paying Living Expenses: Not very hard Food Insecurity: No Food Insecurity (06/06/2024) Received from [facility] Hunger Vital Sign Worried About Running Out of Food in the Last Year: Never true Ran Out of Food in the Last Year: Never true Transportation Needs: Unmet Transportation Needs (06/06/2024) Received from [facility] PRAPARE - Transportation Lack of Transportation (Medical): Yes Lack of Transportation (Non-Medical): No Physical Activity: Inactive (06/06/2024) Received from [facility] Exercise Vital Sign Days of Exercise per Week: 0 days Minutes of Exercise per Session: 0 min Stress: Stress Concern Present (06/06/2024) Received from [facility] [place] [facility] Occupational [facility] - Occupational Stress Questionnaire Feeling of Stress : To some extent Social Connections: Unknown (06/06/2024) Received from [facility] Social Connection and Isolation Panel [NHANES] Frequency of Communication with Friends and Family: Twice a week Frequency of Social Gatherings with Friends and Family: Never Attends Gnosticist Services: Never Active Member of Clubs or [...] swelling Alternatives discussed: Delayed treatment and referral Wilber protocol: Patient identity confirmed: Verbally with patient [...] Medicine Provider Luis E Keating DO 07/30/242152 [email or web address] 07-30-2024 Note HNO ID: [id number] Author: HERMINIA CASE MD Service: ? Author Type: Physician Type: Progress Notes Filed: 07/30/2024 16:33 Note Text: 07/30/2024 Recording using ambient [employer] software for draft documentation of the visit was discussed with the patient/authorized personnel representative; all questions welcomed and answered. Patient/authorized personnel representative agreed to proceed HPI: Gonzalo is [...] skin lesions. HEAD (more content not included)... [facility] 07-30-2024 History of Presen t illness Narrative 07/30/2024 Recording using [employer] software for draft documentation of the visit was discussed with the patient/authorized personnel representative; all questions welcomed and answered. Patient/authorized personnel representative agreed to proceed HPI: Gonzalo is [...] cardiac events. - Patient to go to [place] [facility] for stabilization of oxygen levels and [...] oxygenation. - Consideration for admission to a care home facility for nutritional support and rehabilitation. [...] Herminia Case MD documented in this encounter [facility] 07-23-2024 Telephone encounter Note Prescription Refill [...] Shay LPN July 23, 2024 11:22 AM [facility] 07-23-2024 Miscellaneous Notes Prescription Refill Information [...] 2024 11:22 AM documented in this encounter [facility] 07-02-2024 Telephone encounter Note Request completed and faxed. [facility] 07-02-2024 Miscellaneous Notes Request completed and faxed. Orders signed and in outbox. Please fax. Thank you, Leona Castañeda APRN.DENTIST Type of letter/form/fax request - Assisted living orders Form received from [facility] on 06/29/24 floor and placed on MD desk () for completion. Completed form needs to be faxed to [phone]. Route to [place] when form completed for processing documented in this encounter [facility] 07-02-2024 Telephone encounter Note Orders signed and in outbox. Please fax. Thank you, Leona Castañeda APRN.DENTIST [facility] Work Phone: 06-30-2024 Telephone encounter Note Type of letter/form/fax request - Assisted living orders Form received from [facility] on 06/29/24 floor and placed on MD desk () for completion. Completed form needs to be faxed to [phone]. Route to [place] when form completed for processing [facility] 06-26-2024 Telephone encounter Note Prescription Refill [...] Shay LPN June 26, 2024 9:32 AM [facility] 06-26-2024 Miscellaneous Notes Prescription Refill Information [...] 2024 9:32 AM documented in this encounter [facility] 06-26-2024 Telephone encounter Note Prescription Refill [...] Patel MA June 26, 2024 8:38 AM [facility] 06-26-2024 Miscellaneous Notes Prescription Refill Information [...] 2024 8:38 AM documented in this encounter [facility] 06-07-2024 Telephone encounter Note Herminia Case MD Thank you for the referral. Our first available date for a therapy start of care is 06/11/24. Please let us know if this is acceptable for you and the patient. Thank you , Maddi Valero LPN June 07, 2024 5:05 PM [facility] Work Phone: 06-07-2024 Miscellaneous Notes Herminia Case MD Thank you for the referral. Our first available date for a therapy start of care is 06/11/24. Please let us know if this is acceptable for you and the patient. Thank you , Maddi Valero LPN June 07, 2024 5:05 PM documented in this encounter [facility] 06-06-2024 Telephone encounter Note Herminia Case MD Thank you for the referral for Gonzalo Deluca to receive home care services through [facility]. At this time, the office note [...] homebound - what is the diagnosis that [facility] is seeing the patient for. Thank you, Erna Diaz LPN [facility] Work Phone: 06-06-2024 Miscellaneous Notes Herminia Case MD Thank you for the referral for Gonzalo Deluca to receive home care services through [facility]. At this time, the office note [...] homebound - what is the diagnosis that [facility] is seeing the patient for. Thank you, Erna Diaz LPN documented in this encounter [facility] 06-06-2024 Note HNO ID: [id number] Author: HERMINIA CASE MD Service: ? Author Type: Physician Type: Progress Notes Filed: 06/07/2024 16:23 Note Text: VIRTUAL VISIT PROGRESS NOTE This is a virtual visit using [employer] Video Visit. It required patient-provider interaction for the medical decision making as documented below. I have communicated my name and active licensure. The patient's identity and physical location were verified at the time of this visit. Either the patient or their legal personnel representative has been informed of the risks [...] major depressive di (more content not included)... [facility] 06-06-2024 History of Presen t illness Narrative VIRTUAL VISIT PROGRESS NOTE This is a virtual visit using [employer] Video Visit. It required patient-provider interaction for the medical decision making as documented below. I have communicated my name and active licensure. The patient's identity and physical location were verified at the time of this visit. Either the patient or their legal personnel representative has been informed of the risks [...] Diagnosis Date COPD (chronic obstructive pulmonary disease) ([facility]) DDD (degenerative disc disease), lumbar [...] visit: Panlobular emphysema (HCC) - CONSULT TO [facility] - pt cannot drive, has severe anxiety when leaving the house due to oxygen requirements, falls frequently, short of breath with exertion. Would benefit from home health for general strengthening to avoid falls, risk assessment of house, social work consultation for assistance in future termite helper placement. Moderate episode of recurrent major depressive disorder (HCC) - increase to 30 mg, mirtazapine (REMERON) 15 mg tablet; Take 2 tablet by mouth daily at bedtime. Chronic respiratory failure with hypoxia (HCC) - CONSULT TO [facility] There are no Patient Instructions on file for this visit. Herminia Case MD documented in this encounter [facility] 05-26-2024 Telephone encounter Note Prescription Refill [...] Shay LPN May 26, 2024 12:10 PM [facility] 05-26-2024 Miscellaneous Notes Prescription Refill Information [...] 2024 12:10 PM documented in this encounter [facility] 05-22-2024 Note Patient Outreach (FA MDNA) GONZALO DELUCA ([id number]) 1955 F Date Time Provider Department 05/22/24 HERMINIA CASE During your visit today, we recorded the following information about you: Allergies As of Date: 05/22/2024 Noted Allergy Reaction SEASONAL ALLERGIES 08/16/2017 5 - Intolerance Date Reviewed: 12/30/2023 Reviewed by: Joaquina Martinez APRN.DENTIST - Fully Assessed Visit Diagnosis:Encounter for screening mammogram for breast cancer [Z12.31] Order(s):[facility] SCREENING [facility] [[id number]] Order #: [id number] FUTURE Prescriptions as of 06/22/2024 - mirtazapine [...] Encounter Status:Closed by KD PRODUSER on 06/22/24 [facility] 05-09-2024 Telephone encounter Note Pt has refills on current prescription that should be available until end may. ThanksMelva PA-C [facility] 05-09-2024 Miscellaneous Notes Pt has refills [...] 2024 9:26 AM documented in this encounter [facility] 05-09-2024 Telephone encounter Note Prescription Refill [...] Weathers MA May 09, 2024 9:26 AM [facility] 05-02-2024 Note HNO ID: [id number] Author: ?, ?, ? Service: ? Author Type: ? Type: Progress Notes Filed: 05/02/2024 18:24 Note Text: Pt got scheduled [facility] 05-02-2024 Note HNO ID: [id number] Author: ?, ?, ? Service: ? Author Type: ? Type: Progress Notes Filed: 05/02/2024 12:10 Note Text: Mc sent [facility] 05-02-2024 History of Presen t illness Narrative Mc sent VIRTUAL VISIT PROGRESS NOTE This is a virtual visit using [employer] Video Visit. It required patient-provider interaction for the medical decision making as documented below. I have communicated my name and active licensure. The patient's identity and physical location were verified at the time of this visit. Either the patient or their legal personnel representative has been informed of the risks [...] fall a few days ago, [facility] Doesn't recall how it happened, fell [...] Herminia Case MD documented in this encounter [facility] 05-02-2024 Note HNO ID: [id number] Author: HERMINIA CASE MD Service: ? Author Type: Physician Type: Progress Notes Filed: 05/02/2024 11:35 Note Text: VIRTUAL VISIT PROGRESS NOTE This is a virtual visit using [employer] Video Visit. It required patient-provider interaction for the medical decision making as documented below. I have communicated my name and active licensure. The patient's identity and physical location were verified at the time of this visit. Either the patient or their legal personnel representative has been informed of the risks [...] fall a few days ago, [facility] Doesn't recall how it happened, fell [...] OF SYSTEMS: GENERAL: (more content not included)... [facility] 05-01-2024 Telephone encounter Note Mc sent [facility] 05-01-2024 Miscellaneous Notes Mc sent Needs [...] 2024 6:08 PM documented in this encounter [facility] 05-01-2024 Telephone encounter Note Needs appointment. [facility] 04-30-2024 Telephone encounter Note Prescription Refill [...] Shay LPN April 30, 2024 6:08 PM [facility] 04-27-2024 Emergency department Note Patient: Gonzalo [...] dictating provider for clarification.) Flako Altamirano MD [employer] CHIEF COMPLAINT Chief Complaint Patient [...] Bronchitis Cancer (CMS/HCC) (HCC) skin Cervical cancer ([facility]) Chest pain COPD (chronic obstructive pulmonary disease) ([facility]) USE OXYGEN 3 L AT NIGHT DDD (degenerative disc disease), cervical Defect, retina, with detachment right DJD (degenerative joint disease), lumbar Emphysema lung ([facility]) Former smoker Hematuria SCHEDULED FOR THE PROCEDURE /SURGERY ON 02/11/2017 Hypokalemia Lung nodules Near syncope 09/19/2023 Osteoporosis Palpitations Pneumonia Recurrent major depression ([facility]) Sciatica Thoracic compression fracture ([facility]) Vitamin D deficiency SURGICAL HISTORY Past Surgical History: Procedure Laterality Date CYSTOSCOPY 01/12/2017 OFFICE PROCEDURE CYSTOSCOPY 02/11/2017 C&P bladder biopsy EYE SURGERY detached retina 1994 HYSTERECTOMY 11/06/2019 ABDOMINAL RADICAL HYSTERECTOMY WITH BSO AND PELVIC LYMPH; DR. ZIYAD MENENDEZ [facility] OTHER SURGICAL HISTORY Left 12/19/2019 Med [...] min Stress: No Stress Concern Present (09/19/2023) Citizen Of [place] of Occupational Health - Occupational Stress Questionnaire Feeling of Stress : Only a little Social Connections: Socially Isolated (09/19/2023) Social Connection and Isolation Panel [NHANES] Frequency of Communication with Friends and Family: Three times a week Frequency of Social Gatherings with Friends and Family: Three times a week Attends Gn[employer] Services: Never Active Member of Clubs or [...] Homeless in the Last Year: No SCREENINGS [place] Coma Scale Best Eye Response: Spontaneous Best [...] mL (1,000 mL IntraVENous New Bag 04/27/24 7237) REVAL: MDM On reassessment I talked to [...] AM PATIENT REFERRED TO: Herminia Case MD [address] [place], [place] [id number] DISCHARGE MEDICATIONS: New Prescriptions No medications on [...] pain 2ndary fall documented in this encounter [facility] 04-27-2024 Emergency department Triage note Per ems, fall on carpeted floor. _ LOC but pt states she was dizzy and weak prior to fall. C/o L elbow and nose pain 2ndary fall [facility] 04-27-2024 Physician Emergency department Note Patient: [...] dictating provider for clarification.) Flako Altamirano MD [facility] CHIEF COMPLAINT Chief Complaint Patient presents with [...] Chest pain COPD (chronic obstructive pulmonary disease) ([facility]) USE OXYGEN 3 L AT NIGHT DDD (degenerative disc disease), cervical Defect, retina, with detachment right DJD (degenerative joint disease), lumbar Emphysema lung ([facility]) Former smoker Hematuria SCHEDULED FOR THE PROCEDURE /SURGERY ON 02/11/2017 Hypokalemia Lung nodules Near syncope 09/19/2023 Osteoporosis Palpitations Pneumonia Recurrent major depression ([facility]) Sciatica Thoracic compression fracture ([facility]) Vitamin D deficiency SURGICAL HISTORY Past Surgical History: Procedure Laterality Date CYSTOSCOPY 01/12/2017 OFFICE PROCEDURE CYSTOSCOPY 02/11/2017 C&P bladder biopsy EYE SURGERY detached retina 1994 HYSTERECTOMY 11/06/2019 ABDOMINAL RADICAL HYSTERECTOMY WITH BSO AND PELVIC LYMPH; DR. ZIYAD MENENDEZ [facility] OTHER SURGICAL HISTORY Left 12/19/2019 Med [...] min Stress: No Stress Concern Present (09/19/2023) Citizen Of [place] of Occupational Health - Occupational Stress Questionnaire Feeling of Stress : Only a little Social Connections: Socially Isolated (09/19/2023) Social Connection and Isolation Panel [NHANES] Frequency of Communication with Friends and Family: Three times a week Frequency of Social Gatherings with Friends and Family: Three times a week Attends Gn[employer]ist Services: Never Active Member of Clubs or [...] Homeless in the Last Year: No SCREENINGS [place] Coma Scale Best Eye Response: Spontaneous Best Verbal Response: Oriented Best Motor Response: Follows commands [place] Coma Scale Score: 15 PHYSICAL EXAM ED [...] mL (1,000 mL IntraVENous New Bag 04/27/24 8045) REVAL: MDM On reassessment I talked to [...] AM PATIENT REFERRED TO: Herminia Case MD [address] [place] [id number] DISCHARGE MEDICATIONS: New Prescriptions No medications on [...] Weathers MA April 06, 2024 9:03 AM [facility] 04-06-2024 Miscellaneous Notes Prescription Refill Information [...] 2024 9:03 AM documented in this encounter [facility] 04-02-2024 Telephone encounter Note Pt has three refills available at the pharmacy. Melva Juárez PA-C [facility] 04-02-2024 Miscellaneous Notes Pt has three refills available at the pharmacy. Melva Juárez PA-C Pharmacy verified in [facility] Patient has been identified by name and [...] Alejandra Reno MA documented in this encounter [facility] 04-02-2024 Telephone encounter Note Pharmacy verified in [facility] Patient has been identified by name and [...] applicable Please advise. Maria Alejandra Reno MA [facility] 04-02-2024 Miscellaneous Notes Pharmacy verified in [facility] Patient has been identified by name and [...] Alejandra Reno MA documented in this encounter [facility] 04-02-2024 Telephone encounter Note Pharmacy verified in [facility] Patient has been identified by name and [...] applicable Please advise. Maria Alejandra Reno MA [facility] 03-20-2024 Telephone encounter Note Prescription Refill [...] Baltazar MA March 20, 2024 12:08 PM [facility] 03-20-2024 Miscellaneous Notes Prescription Refill Information [...] 2024 12:08 PM documented in this encounter [facility] 03-12-2024 Telephone encounter Note Pharmacy verified in [facility]. Patient has been identified by name and [...] Not applicable Please advise. Rocio Westfall MA [facility] 03-12-2024 Miscellaneous Notes Pharmacy verified in [facility]. Patient has been identified by name and [...] Rocio Westfall MA documented in this encounter [facility] 03-09-2024 Telephone encounter Note Prescription Refill [...] Patel MA March 09, 2024 4:57 PM [facility] 03-09-2024 Miscellaneous Notes Prescription Refill Information [...] 2024 4:57 PM documented in this encounter [facility] 03-05-2024 Telephone encounter Note Patient aware, will buy over the counter. Whit Shay LPN [facility] 03-05-2024 Miscellaneous Notes Patient aware, will buy over the counter. Whit Shay LPN LM for patient to call the office. Whit Shay LPN Let patient know she can try looking for this available over the counter. Looks like she uses the diclofenac gel. Per [facility], Diclofenac Sodium is on backorder unavailable. Please advise. Whit Shay LPN documented in this encounter [facility] 03-05-2024 Telephone encounter Note Pharmacy verified in [facility] Patient has been identified by name and [...] 7.9 oz) Please advise. Silvia Trejo MA [facility] 03-05-2024 Miscellaneous Notes Pharmacy verified in [facility] Patient has been identified by name and [...] Silvia Trejo MA documented in this encounter [facility] 03-02-2024 Telephone encounter Note LM for patient to call the office. Whit Shay LPN [facility] 03-01-2024 Telephone encounter Note Let patient know she can try looking for this available over the counter. Looks like she uses the diclofenac gel. [facility] 03-01-2024 Telephone encounter Note Per [facility], Diclofenac Sodium is on backorder unavailable. Please advise. Whit Shay LPN [facility] 02-07-2024 Telephone encounter Note Pharmacy verified in [facility] Patient has been identified by name and [...] 7.9 oz) Please advise. Silvia Trejo MA [facility] 02-07-2024 Miscellaneous Notes Pharmacy verified in [...] Silvia Trejo MA documented in this encounter [facility] 02-07-2024 Telephone encounter Note Prescription Refill [...] Prasad MA February 07, 2024 11:36 AM [facility] 02-07-2024 Miscellaneous Notes Prescription Refill Information [...] 2024 11:36 AM documented in this encounter [facility] 01-11-2024 Telephone encounter Note This was refilled earlier today. Melva Juárez PA-C [facility] 01-11-2024 Miscellaneous Notes This was refilled [...] 2024 2:10 PM documented in this encounter [facility] 01-11-2024 Telephone encounter Note Prescription Refill [...] January 11, 2024 2:10 PM [facility] 01-10-2024 Telephone encounter Note Pharmacy verified in [facility]. Patient has been identified by name and [...] Please advise. Rocio Westfall MA [facility] 01-10-2024 Miscellaneous Notes Pharmacy verified in [facility]. Patient has been identified by name and [...] Rocio Westfall MA documented in this encounter [facility] 01-09-2024 Telephone encounter Note Pharmacy verified in [facility]. Patient has been identified by name and [...] Not applicable Please advise. Rocio Westfall MA [facility] 01-09-2024 Miscellaneous Notes Pharmacy verified in [facility]. Patient has been identified by name and [...] Rocio Westfall MA documented in this encounter [facility] 01-09-2024 Telephone encounter Note Prescription Refill [...] Shay LPN January 09, 2024 2:38 PM [facility] 01-09-2024 Miscellaneous Notes Prescription Refill Information [...] 2024 2:38 PM documented in this encounter [facility] 01-09-2024 Telephone encounter Note Please review and advise. [facility] 01-09-2024 Miscellaneous Notes Please review and advise. documented in this encounter [facility] 01-09-2024 Telephone encounter Note Prescription Refill [...] Shay LPN January 09, 2024 10:42 AM [facility] 01-09-2024 Miscellaneous Notes Prescription Refill Information [...] 2024 10:42 AM documented in this encounter [facility] 12-30-2023 Note HNO ID: [id number] Author: JOAQUINA MARTINEZ APRN.DENTIST Service: ? Author Type: Nurse Practitioner Type: Progress Notes Filed: 12/30/2023 13:47 Note Text: VIRTUAL VISIT PROGRESS NOTE This is a virtual visit using [employer] Video Visit. It required patient-provider interaction for the medical decision making as documented below. I have communicated my name and active licensure. The patient's identity and physical location were verified at the time of this visit. Either the patient or their legal personnel representative has been informed of the risks [...] on file for this visit. Joaquina Rao APRN.[facility] 12-30-2023 History of Presen t illness Narrative VIRTUAL VISIT PROGRESS NOTE This is a virtual visit using [employer] Video Visit. It required patient-provider interaction for the medical decision making as documented below. I have communicated my name and active licensure. The patient's identity and physical location were verified at the time of this visit. Either the patient or their legal personnel representative has been informed of the risks [...] on file for this visit. Joaquina Rao APRN.DENTIST documented in this encounter [facility] 12-27-2023 Telephone encounter Note Request completed and faxed. [facility] 12-27-2023 Miscellaneous Notes Request completed and faxed. Type of letter/form/fax request - Home Health Care Orders Form received from [facility] on 12/26/23 floor and placed on MD desk () for completion. Completed form needs to be faxed to [phone]. Route to [place] when form completed for processing documented in this encounter [facility] 12-27-2023 Telephone encounter Note Type of letter/form/fax request - Home Health Care Orders Form received from [facility] on 12/26/23 floor and placed on desk () for completion. Completed form needs to be faxed to [phone]. Route to [place] when form completed for processing [facility] 12-27-2023 Telephone encounter Note Prescription Refill [...] Contreras LPN December 27, 2023 10:41 AM [facility] 12-27-2023 Miscellaneous Notes Prescription Refill Information [...] 2023 10:41 AM documented in this encounter [facility] 12-14-2023 Telephone encounter Note Prescription Refill [...] Shay LPN December 14, 2023 9:21 AM [facility] 12-14-2023 Miscellaneous Notes Prescription Refill Information [...] 2023 9:21 AM documented in this encounter [facility] 12-14-2023 Telephone encounter Note Request completed and faxed. [facility] 12-14-2023 Miscellaneous Notes Request completed and faxed. Done. Type of letter/form/fax request - Home Health Care Orders Form received from [facility] on 12/12/23 floor and placed on MD desk () for completion. Completed form needs to be faxed to [phone]. Route to [place] when form completed for processing documented in this encounter [facility] 12-13-2023 Telephone encounter Note Done. [facility] 12-13-2023 Telephone encounter Note Type of letter/form/fax request - Home Health Care Orders Form received from [facility] on 12/12/23 floor and placed on MD desk () for completion. Completed form needs to be faxed to [phone]. Route to [place] when form completed for processing [facility] 12-08-2023 Telephone encounter Note Home care Certification Form 485 received from [facility]. For cert dates 11/25/23 to 01/23/24 that were signed on 12/06/23. Recertification Patient's home health 485 form / care plan for stated certification period reviewed and signed. Relevant medical records were reviewed. No changes were indicated [facility] 12-08-2023 Miscellaneous Notes Home care Certification Form 485 received from [facility]. For cert dates 11/25/23 to 01/23/24 that were signed on 12/06/23. Recertification Patient's home health 485 form / care plan for stated certification period reviewed and signed. Relevant medical records were reviewed. No changes were indicated documented in this encounter [facility] 12-06-2023 Telephone encounter Note Request completed and faxed. [facility] 12-06-2023 Miscellaneous Notes Request completed and faxed. Done. Type of letter/form/fax request - Home Health Care Orders Plan of Care Certification Period-11/25/23 to 01/23/24 Form received from [facility] on 12/01/23 floor and placed on MD desk () for completion. Completed form needs to be faxed to [phone]. Route to [place] when form completed for processing documented in this encounter [facility] 12-06-2023 Telephone encounter Note Done. [facility] 12-06-2023 Telephone encounter Note Type of letter/form/fax request - Home Health Care Orders Plan of Care Certification Period-11/25/23 to 01/23/24 Form received from [facility] on 12/01/23 floor and placed on MD desk () for completion. Completed form needs to be faxed to [phone]. Route to [place] when form completed for processing [facility] 11-28-2023 Telephone encounter Note Pharmacy verified in [facility] Patient has been identified by name and [...] 7.9 oz) Please advise. Silvia Trejo MA [facility] 11-28-2023 Miscellaneous Notes Pharmacy verified in [facility] Patient has been identified by name and [...] Silvia Trejo MA documented in this encounter [facility] 11-14-2023 Telephone encounter Note Pharmacy verified in [facility]. Patient has been identified by name and [...] Not applicable Please advise. Rocio Westfall MA [facility] 11-14-2023 Miscellaneous Notes Pharmacy verified in [facility]. Patient has been identified by name and [...] Rocio Westfall MA documented in this encounter [facility] 11-14-2023 Telephone encounter Note Request completed and faxed. [facility] 11-14-2023 Miscellaneous Notes Request completed and faxed. Done. Type of letter/form/fax request - Home Health Care Orders Form received from [facility] on 11/13/23 floor and placed on MD desk () for completion. Completed form needs to be faxed to . Route to [place] when form completed for processing documented in this encounter [facility] 11-14-2023 Telephone encounter Note Done. [facility] 11-14-2023 Telephone encounter Note Type of letter/form/fax request - Home Health Care Orders Form received from [facility] on 11/13/23 floor and placed on MD desk () for completion. Completed form needs to be faxed to . Route to [place] when form completed for processing [facility] 11-12-2023 Telephone encounter Note Prescription Refill [...] Shay LPN November 12, 2023 10:33 AM [facility] 11-12-2023 Miscellaneous Notes Prescription Refill Information [...] 2023 10:33 AM documented in this encounter [facility] 11-02-2023 Telephone encounter Note Prescription Refill [...] Prasad MA November 02, 2023 8:23 AM [facility] 11-02-2023 Miscellaneous Notes Prescription Refill Information [...] 2023 8:23 AM documented in this encounter [facility] 10-28-2023 Telephone encounter Note Request completed and faxed. [facility] 10-28-2023 Miscellaneous Notes Request completed and faxed. Done. Type of letter/form/fax request - Home Health Care Orders Form received from [facility] on 10/27/23 floor and placed on MD desk () for completion. Completed form needs to be faxed to [phone]. Route to [place] when form completed for processing documented in this encounter [facility] 10-28-2023 Telephone encounter Note Done. [facility] 10-28-2023 Telephone encounter Note Type of letter/form/fax request - Home Health Care Orders Form received from [facility] on 10/27/23 floor and placed on MD desk () for completion. Completed form needs to be faxed to [phone]. Route to [place] when form completed for processing [facility] 10-24-2023 Telephone encounter Note Noted. Melva Juárez PA-C [facility] 10-24-2023 Miscellaneous Notes Noted. Melva Juárez PA-C Summary: Patient Update [facility] PT called to report that patient cancelled her PT appointment today. documented in this encounter [facility] 10-22-2023 Telephone encounter Note Summary: Patient Update [facility] PT called to report that patient cancelled her PT appointment today. [facility] 10-18-2023 Telephone encounter Note Request completed and faxed. [facility] 10-18-2023 Miscellaneous Notes Request completed and faxed. Type of letter/form/fax request - Home Health Care Orders Form received from [facility] on 10/18/23 floor and placed on MD desk () for completion. Completed form needs to be faxed to [phone]. Route to [place] when form completed for processing documented in this encounter [facility] 10-18-2023 Telephone encounter Note Type of letter/form/fax request - Home Health Care Orders Form received from [facility] on 10/18/23 floor and placed on MD desk () for completion. Completed form needs to be faxed to [phone]. Route to [place] when form completed for processing [facility] 10-16-2023 Hospital Discharg e instructions Janneth Hartley PA-C - 10/16/2023 9:52 PM EDT Continue take your home medications as prescribed, and use lidocaine patches. Do the incentive spirometer for 10 breaths every 2 hours while awake. Return to ER if experiencing any worsening symptoms The following attachments cannot be sent through Care Everywhere.Preventing Falls ED (Sudanese)Acute Pain, Adult (Sudanese)documented in this encounter [facility] 10-16-2023 Emergency department Note Emergency Department Encounter [facility] ED Patient: Gonzalo Deluca : 1955 Date [...] Chest pain COPD (chronic obstructive pulmonary disease) ([facility]) USE OXYGEN 3 L AT NIGHT DDD (degenerative disc disease), cervical Defect, retina, with detachment right DJD (degenerative joint disease), lumbar Emphysema lung ([facility]) Former smoker Hematuria SCHEDULED FOR THE PROCEDURE /SURGERY ON 02/11/2017 Hypokalemia Lung nodules Near syncope 09/19/2023 Osteoporosis Palpitations Pneumonia Recurrent major depression ([facility]) Sciatica Thoracic compression fracture ([facility]) Vitamin D deficiency Past Surgical History: Procedure Laterality Date CYSTOSCOPY 01/12/2017 OFFICE PROCEDURE CYSTOSCOPY 02/11/2017 C&P bladder biopsy EYE SURGERY detached retina 1994 HYSTERECTOMY 11/06/2019 ABDOMINAL RADICAL HYSTERECTOMY WITH BSO AND PELVIC LYMPH; DR. ZIYAD MENENDEZ [facility] OTHER SURGICAL HISTORY Left 12/19/2019 Med [...] min Stress: No Stress Concern Present (09/19/2023) Citizen Of [place] of Occupational Health - Occupational Stress Questionnaire Feeling of Stress : Only a little Social Connections: Socially Isolated (09/19/2023) Social Connection and Isolation Panel [NHANES] Frequency of Communication with Friends and Family: Three times a week Frequency of Social Gatherings with Friends and Family: Three times a week Attends Gnosticist Services: Never Active Member of Clubs or [...] Department Physician in the absence of a arch support technician. Please see Anny for interpretation of EKG. [...] PATIENT REFERRED TO: Herminia Case MD [address] [facility] [address] Call [facility] ED [address] [facility] [phone] Go to If symptoms worsen [...] Hartley PA-C 10/16/232151 documented in this encounter [facility] [email or web address] 10-16-2023 Physician Emergency department Note Emergency Department Encounter [facility] ED Patient: Gonzalo Deluca : 1955 Date [...] Chest pain COPD (chronic obstructive pulmonary disease) ([facility]) USE OXYGEN 3 L AT NIGHT DDD (degenerative disc disease), cervical Defect, retina, with detachment right DJD (degenerative joint disease), lumbar Emphysema lung ([facility]) Former smoker Hematuria SCHEDULED FOR THE PROCEDURE /SURGERY ON 02/11/2017 Hypokalemia Lung nodules Near syncope 09/19/2023 Osteoporosis Palpitations Pneumonia Recurrent major depression (HCC) Sciatica Thoracic compression fracture ([facility]) Vitamin D deficiency Past Surgical [...] min Stress: No Stress Concern Present (09/19/2023) Citizen [place] of Occupational Health - Occupational Stress Questionnaire Feeling of Stress : Only a little Social Connections: Socially Isolated (09/19/2023) Social Connection and Isolation Panel [NHANES] Frequency of Communication with Friends and Family: Three times a week Frequency of Social Gatherings with Friends and Family: Three times a week Attends Gnosticist Services: Never Active Member of Clubs or [...] Department Physician in the absence of a arch support technician. Please see Epiphany for interpretation of EKG. [...] 10/16/2023 09:51:31 PM PATIENT REFERRED TO: Herminia Csae MD [address] [place] [address] [phone] Call [facility] ED [address] [place] [phone] Go to If symptoms worsen DISCHARGE [...] [employer] Janneth Hartley PA-C 10/16/232151 [facility] 10-11-2023 Telephone encounter Note Home care Certification Form 485 received from [facility]. For cert dates 09/26/23 to 11/24/23 that were signed on 10/11/23. New Certification Patient's home health 485 form / care plan for stated certification period reviewed and signed. Relevant medical records were reviewed. No changes were indicated [facility] 10-11-2023 Miscellaneous Notes Home care Certification Form 485 received from [facility]. For cert dates 09/26/23 to 11/24/23 that were signed on 10/11/23. New Certification Patient's home health 485 form / care plan for stated certification period reviewed and signed. Relevant medical records were reviewed. No changes were indicated documented in this encounter [facility] 10-11-2023 Telephone encounter Note Request completed and faxed. [facility] 10-11-2023 Miscellaneous Notes Request completed and faxed. Done. Type of letter/form/fax request - Home Health Care Orders Form received from [facility] on 10/06/23 floor and placed on MD desk () for completion. Completed form needs to be faxed to [phone]. Route to [place] when form completed for processing documented in this encounter [facility] 10-11-2023 Telephone encounter Note Done. [facility] 10-10-2023 Telephone encounter Note Type of letter/form/fax request - Home Health Care Orders Form received from [facility] on 10/06/23 floor and placed on MD desk () for completion. Completed form needs to be faxed to [phone]. Route to [place] when form completed for processing [facility] 10-06-2023 Note HNO ID: [id number] Author: LALA MOLINA LPN Service: ? Author Type: LICENSED NURSE Type: Progress Notes Filed: 10/06/2023 12:12 Note Text: This encounter was opened in error. [facility] 10-06-2023 History of Presen t illness Narrative This encounter was opened in error. documented in this encounter [facility] 10-06-2023 Telephone encounter Note [facility] is calling Herminia Case MD today to report patient's home health care physical therapy will be delayed a week as patient informed them that she is not feeling well.. Patient has been identified by name and birthdate. Duration of symptoms: N/A Person calling: caregiver: [facility] Call patient at: at home [phone] (home) [phone] (cell) Was an appointment scheduled: No Closing statement: Jessica Jay [facility] Work Phone: 10-06-2023 Miscellaneous Notes [facility] at Home is calling Herminia Case MD today to report patient's home health care physical therapy will be delayed a week as patient informed them that she is not feeling well.. Patient has been identified by name and birthdate. Duration of symptoms: N/A Person calling: caregiver: [facility] Call patient at: at home [phone] (home) [phone] (cell) Was an appointment scheduled: No Closing statement: Jessica Jay documented in this encounter [facility] 09-22-2023 Miscellaneous Notes Patient Choice Patient Name: GONZALO DELUCA Date of : 1955 All Providers Sent Referral Name: [facility] Phone: [phone] Address: [address] [place] [address] The patient is Moderately Unstable - Medium risk of patient condition declining or worsening The patient's goals for the shift include rest The clinical goals for the shift include safety Received message from Reny Telles APRN. Daughter Karishma requesting information on resources available to receive additional help in the home. Placed call to [phone]. Left voice mail and return call back [...] PT recommends return home with home care. liaison planner following. Currently on 3 liters oxygen; wears [...] and agreeable to SN, PT services with [facility] - [facility] Care. [...] is noted as yes - consider a CHASER TAR evaluation once the patient returns home. START PATIENT REGISTRATION INFORMATION Order Information Order Signing Physician: Nickolas Marrero MD Service Ordered RN ?: Yes Service Ordered PT ?: Yes Service Ordered OT ?: No Service Ordered ST ?: No Service Ordered CHASER TAR?:No Service Ordered AEROSPACE ENGINEER OFFICER ARMAMENT?: No Following Physician: HERMINIA CASE MD Following Physician Overseeing Physician: HERMINIA CASE MD (Required for Residents only) Agreeable to Follow? Yes Date/Time of Call 09/21/23 2:04 PM, Spoke with: yes per call back received from office . Care Coordination Same Day SOC?: No Primary Care Physician: HERMINIA CASE MD Primary Care Physician Primary Care Physician Address: [address] [place] [id number] Visit Instructions: N/A Service Discharge Location Type: Home with Home Health Care Service Facility Name: N/A Service Floor Facility: N/A Service Room No: N/A Demographics Patient Last Name: Yosi Patient First Name: Gonzalo Language/Communication Barrier: DAUGHTER KARISHMA IS CONTACT Service Address: [address] [place] [address] [facility] City: [facility] ST: [place] Service ZIP: [address] [facility] Other phone numbers: Telephone Information: Emergency Contact: Extended Emergency Contact Information Primary Emergency Contact: Karishma Deluca Address: [address] [place] [address] [place] [address] [facility] Mobile Relation: Daughter Secondary Emergency Contact: Jace Deluca Mobile Relation: Son Admission Information Admit Date: 09/19/2023 Patient status at discharge: Inpatient Admitting Diagnosis: Near syncope [R55] Closed head injury, initial encounter [S09.90XA] Fall, initial encounter [W19.XXXA] Compression fracture of T7 vertebra, initial encounter ([facility]) [S22.060A] Compression fracture of T8 vertebra, initial encounter ([facility]) [S22.060A] Compression fracture of T5 vertebra, initial encounter ([facility]) [S22.050A] Compression fracture of L1 vertebra, initial encounter ([facility]) [S32.010A] Caregiver Information Caregiver First [...] diagnoses: Discharge Date: TBD Referral Source-PACC: (Hospital/Unit): [facility] / B2-261/B2-261 A End PACC Note [...] Limits Permission given to speak with patient personnel representative/caregiver as indicated: Yes Confirmation of Payer with patient/family: Yes Payer Name: [facility] Dual Complete Sedan: No Confirmation of Primary Care Physician: Confirmed [...] Daily Living Prescription Coverage: Yes Pharmacy Used: [facility] in [place] Medication Management: Independent Transportation/Shopping: Transportation Mode: Car [...] to be discharged to: Home with possible [facility] Discharge Planning Actions: Continue to follow [...] home with possible HHC at this time. 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 [...] barriers include . documented in this encounter [facility] 09-22-2023 Note Formatting of this n ote might be different from the original. Patient Choice Patient Name: GONZALO DELUCA Date of : 1955 All Providers Sent Referral Name: [email or web address] At [facility] Phone: [phone] Address: [address] [place] [id number] [facility] 09-22-2023 Note Formatting of this n ote might be different from the original. Patient Choice Patient Name: GONZALO DELUCA Date of : 1955 All Providers Sent Referral Name: [email or web address] At Home Phone: [phone] Address: [address] [place], [place] [id number] [facility] 09-22-2023 History of Presen t illness Narrative [...] major depression (HCC) Sciatica Thoracic compression fracture ([facility]) Vitamin D deficiency LABS: CBC: [...] appreciated. -replace K - Pt/OT- Home with [facility]. - DC home tomorrow if OK with consults. - am labs, replace lytes prn - PT/OT/CM/SW - delirium precautions: increase activity - DVT prophylaxis: enoxaparin and encourage ambulation Advance Directive: Full Code Anticipated Discharge Extended Emergency Contact Information Primary Emergency Contact: Karishma Deluca Address: [address] [place] [address] [place] [address] [facility] Mobile Relation: Daughter Secondary Emergency Contact: Jace Deluca Mobile Relation: Son Nickolas Marrero MD Division of Hospitalist Medicine [facility] Images from the original note were not included. PHYSICAL THERAPY [facility] Initial Evaluation Name/MRN: Gonzalo Deluca ([id number]) Evaluation Date: 09/21/2023 Date of : 1955 Admission Date: 09/19/2023 4:29 PM Age: 67 y.o. Room/Bed: [facility] A Discharge Recommendation: Home with Home health [...] Acute exacerbation of chronic obstructive pulmonary disease ([facility]) 04/12/2018 Allergic rhinitis Arthritis Asthma Bronchitis Cancer ([facility]) ([facility]) skin Cervical cancer ([facility]) ([facility]) Chest pain COPD (chronic obstructive pulmonary disease) ([facility]) USE OXYGEN 3 L AT NIGHT DDD (degenerative disc disease), cervical Defect, retina, with detachment right DJD (degenerative joint disease), lumbar Emphysema lung ([facility]) Former smoker Hematuria SCHEDULED FOR THE PROCEDURE /SURGERY ON 02/11/2017 Hypokalemia Lung nodules Near syncope 09/19/2023 Osteoporosis Palpitations Pneumonia Recurrent major depression ([facility]) Sciatica Thoracic compression fracture ([facility]) Vitamin D deficiency Past Surgical History: Past Surgical History: Procedure Laterality Date CYSTOSCOPY 01/12/2017 OFFICE PROCEDURE CYSTOSCOPY 02/11/2017 C&P bladder biopsy EYE SURGERY detached retina 1994 HYSTERECTOMY 11/06/2019 ABDOMINAL RADICAL HYSTERECTOMY WITH BSO AND PELVIC LYMPH; DR. ZIYAD MENENDEZ [facility] OTHER SURGICAL HISTORY Left 12/19/2019 Med Port POWER Regular Size OTHER SURGICAL HISTORY Left 11/07/2022 Percutaneous skeltal fixation femoral fracture TUBAL LIGATION 1992 Admission Diagnosis: Patient Active Problem List Diagnosis Date Noted Severe malnutrition ([facility]) ([facility]) 09/20/2023 Falls frequently 09/20/2023 Unintentional weight loss 09/20/2023 Debility 09/20/2023 PFO (patent foramen ovale) 09/20/2023 Lumbar compression fracture, closed, initial encounter ([facility]) 02/13/2023 Nondisplaced fracture of neck of left femur ([facility]) 11/06/2022 Other specified complication of vascular prosthetic devices, implants and grafts, initial encounter ([facility]) 08/06/2021 Poor venous access 12/19/2019 H/O: CVA (cerebrovascular accident) 12/14/2019 Malignant neoplasm of exocervix ([facility]) 11/07/2019 S/P hysterectomy 11/07/2019 PNA (pneumonia) 08/02/2019 Leukocytosis 04/13/2018 Shortness of breath 04/13/2018 DDD (degenerative disc disease), cervical 04/12/2018 Recurrent major depression ([facility]) 04/12/2018 Chronic back pain 04/10/2017 COPD (chronic obstructive pulmonary disease) ([facility]) 04/10/2017 Pulmonary nodule 04/10/2017 Sciatica [...] Responsibilities: Independent Receives Help From: Family Active Fountain Dispenser: N/A Prior Level of Function ADL Assistance: [...] Mobility Raw Score (No Stairs) : 14 [facility] Plan Pt would benefit from skilled [...] of Care supervision is transferred to a [facility] Therapy Services Physical Therapist. Goals and/or treatment plan was established in collaboration with patient/family/other representatives. Images from the original note were not included. OCCUPATIONAL THERAPY [facility] Initial Evaluation Name/MRN: Gonzalo Deluca ([id number]) Evaluation Date: 09/21/2023 Date of : 1955 [...] Acute exacerbation of chronic obstructive pulmonary disease ([facility]) 04/12/2018 Allergic rhinitis Arthritis Asthma Bronchitis Cancer (CMS/HCC) ([facility]) skin Cervical cancer (CMS/HCC) ([facility]) Chest pain COPD (chronic obstructive pulmonary disease) ([facility]) USE OXYGEN 3 L AT NIGHT DDD (degenerative disc disease), cervical Defect, retina, with detachment right DJD (degenerative joint disease), lumbar Emphysema lung ([facility]) Former smoker Hematuria SCHEDULED FOR THE PROCEDURE /SURGERY ON 02/11/2017 Hypokalemia Lung nodules Near syncope 09/19/2023 Osteoporosis Palpitations Pneumonia Recurrent major depression ([facility]) Sciatica Thoracic compression fracture ([facility]) Vitamin D deficiency Past Surgical [...] 09/20/2023 Lumbar compression fracture, closed, initial encounter ([facility]) 02/13/2023 Nondisplaced fracture of neck of left femur ([facility]) 11/06/2022 Other specified complication of vascular prosthetic devices, implants and grafts, initial encounter ([facility]) 08/06/2021 Poor venous access 12/19/2019 H/O: CVA (cerebrovascular accident) 12/14/2019 Malignant neoplasm of exocervix ([facility]) 11/07/2019 S/P hysterectomy 11/07/2019 PNA (pneumonia) 08/02/2019 Leukocytosis 04/13/2018 Shortness of breath 04/13/2018 DDD (degenerative disc disease), cervical 04/12/2018 Recurrent major depression ([facility]) 04/12/2018 Chronic back pain 04/10/2017 COPD (chronic obstructive pulmonary disease) ([facility]) 04/10/2017 Pulmonary nodule 04/10/2017 Sciatica [...] Responsibilities: Independent Receives Help From: Family Active Fountain Dispenser: N/A Prior Level of Function ADL Assistance: [...] of Care supervision is transferred to a [facility] Therapy Services Occupational Therapist. Goals and/or treatment plan was established in collaboration with patient/family/other representatives. [facility] Geriatric Medicine Inpatient Consult Service Admission Date: 09/19/2023 Assessment Principal Problem: Falls frequently Active Problems: Severe malnutrition (CMS/HCC) (HCC) Unintentional weight loss Debility Chronic back pain COPD (chronic obstructive pulmonary disease) ([facility]) Supplemental oxygen dependent Plan Polypharmacy [...] impairment --Recommend outpatient follow up at [facility] ([facility]) for more in depth [...] depression, Vit D deficiency, Osteoporosis presented to [facility] on 7/1/24 for fall. Found to [...] mg, 650 mg, Oral, TID, Saad Haynese, SOUND PRINTER - DENTIST, 650 mg at 09/21/23821 buPROPion XL (Wellbutrin XL) 24 hr tablet 150 mg, 150 mg, Oral, Daily, Lauren Serna MD, 150 mg at 09/21/23821 busPIRone (Buspar) tablet 15 mg, 15 mg, Oral, TID, Saad Haynese, SOUND PRINTER - DENTIST, 15 mg at 09/21/23821 calcitonin (Miacalcin) injection 50 Units, 50 Units, IntraMUSCular, Daily, Lauren Serna MD enoxaparin (Lovenox) syringe 40 mg, 40 mg, SubCUTAneous, Daily, Lauren Serna MD, 40 mg at 09/21/23821 lidocaine (LMX) 4 % cream, , Topical, PRN, Lauren Serna MD melatonin tablet 3 mg, 3 mg, Oral, Nightly PRN, Saad Telles SOUND PRINTER - DENTIST, 3 mg at 09/20/232121 mirtazapine (Remeron) tablet 15 mg, 15 mg, Oral, Nightly, Saad Telles SOUND PRINTER - DENTIST, 15 mg at 09/20/232122 mometasone-formoterol (Dulera 200) [...] mg, Oral, Daily, Saad Telles APRN - DENTIST, 30 mg at 09/21/23 0822 perflutren protein [...] 1.017 09/21/2023 Lab Results Component Value Date [id number] 09/21/2023 Lab Results Component Value Date [...] (gastrocnemius) Fluid Accumulation: No significant fluid accumulation Death Surveys Coder Strength: Not Performed Nutrition Assessment: 67 y.o. [...] (kg): 52 kg Total Energy Requirements (kcals/day): 9384-3425 (28-35) Weight Used for Protein Requirements: Current [...] RD records) % Weight Change (Calculated): -8 Atlantic Body Weight (lbs) (Calculated): 125 lbs Atlantic Body Weight (Kg) (Calculated): 57 kg % [place] Body Weight (Calculated): 92 % BMI (kg/m2) [...] Oral Nutrition Supplement Mara Corona RD Contact: *[phone] or via Secure Chat Hospitalist Progress Note [...] 09/19/2023 Osteoporosis Palpitations Pneumonia Recurrent major depression ([facility]) Sciatica Thoracic compression fracture ([facility]) Vitamin D deficiency LABS: CBC: [...] Primary Emergency Contact: Karishma Deluca Address: [address] [place] [address] [place] [address] [place] Mobile Relation: Daughter Secondary Emergency Contact: Jace Deluca Mobile Relation: Son Nickolas Marrero MD Division of Hospitalist Medicine [facility] ([facility]) Images from the original note were not included. PHYSICAL THERAPY [facility] Name/MRN: Gonzalo Starkssumeetbenji ([id number]) Date: 09/20/2023 PT orders received and chart reviewed. Pt with multiple, severe compresssion fractures of the T and L spine. Ortho consulted. Will await Ortho POC prior to initiating therapy Oseas Lima PT Images from the original note were not included. OCCUPATIONAL THERAPY [facility] Name/MRN: Gonzalo Starkssumeetbenji ([id number]) Date: 09/20/2023 OT orders received and chart reviewed. Pt with multiple, severe compresssion fractures of the T and L spine. Ortho consulted. Will await Ortho POC prior to initiating therapy. Roopa More OT documented in this encounter [facility] 09-22-2023 Plan of care note The patient is Moderately Unstable - Medium risk of patient condition declining or worsening The patient's goals for the shift include rest The clinical goals for the shift include safety [facility] 09-21-2023 Telephone encounter Note Called and spoke with Vivian from [place] They just need to confirm Dr. Case will follow for For homecare They Don't need orders. Verbal given now. [facility] Work Phone: 09-21-2023 Miscellaneous Notes Called and spoke with Vivian from [place] They just need to confirm Dr. Case will follow for For homecare They Don't need orders. Verbal given now. Orders or will Dr. Case follow? She will follow. We don't typically give home care orders. Melva Juárez PA-C Ashley from [facility] Patient currently admitted for falls Need orders to follow for Home Care Call back number: [phone] documented in this encounter [facility] 09-21-2023 Hospital Discharg e instructions Freddy Black MD - 09/21/2023 4:28 PM EDT Images from the original note were not included. You have been evaluated in the hospital for a behavioral health problem. I recommend you contact the following mental health provider(s) to schedule an appointment as soon as possible: [x] [facility]; [facility] (Psychiatry, Counseling,Addiction Services); [address], [place] [address]; [x] [facility]; (Psychiatry, Counseling, Addiction Services); [address], [facility] [address]; [x] [facility]; (Psychiatry, Counseling); [address] [place] [address]; [] [facility]; (Psychiatry, Counseling); [address], [address], [place] [address]; [] [facility]; (Psychiatry, Counseling); [address], [place] [address]; [] [facility]; (Psychiatry, Counseling); [address], [place] [address]; [] [facility]; (Psychiatry, Counseling); [address], [address], [place] [address]; [x] [facility] (Psychiatry, Counseling, Case Management); [address], [place] [address]; ; for initial assessments you may call or walk-in on Mondays and Tuesdays at 8:00 AM [] [facility] (Psychiatry, Counseling, Case Management); [address] [place] [address]; ; for initial assessments you may call or walk-in on at noon [] [facility] (Psychiatry, Counseling, Case Management); [address] [place] [address]; [x] [facility] (Psychiatry, Counseling, Case Management, Addiction Services); [address] [place] [address]; [x] [facility] (Psychiatry, Counseling, Case Management, Addiction Services); [address], [place] [address]; [x] [facility] (Psychiatry, Counseling, Case Management, Addiction Services); [address], [place] [address]; [] [facility] (Psychiatry, Counseling); [address] [place] [address]; [] [facility] (Psychiatry, Counseling, Case Management - has evening and weekend hours); [address] [place] [address]; If you or someone you know is struggling or in crisis, help is available. Call or text 537 or chat [email or web address]. -OR- Call the [facility] Crisis Hotline at 129-669-9171 -OR- Visit [facility] Psychiatric Emergency Services, in person, at [address] [place] [address]; You should return to the Emergency Department [...] Primary Emergency Contact: Karishma Deluca Address: [address] [place] [address] [place] [address] [facility] Mobile Relation: Daughter Secondary Emergency Contact: Jace eDluca Mobile Relation: Son Past Surgical History: Past [...] prosthetic devices, implants and grafts, initial encounter ([facility]) Nondisplaced fracture of neck of left femur (HCC) Lumbar compression fracture, closed, initial encounter ([facility]) Severe malnutrition (CMS/HCC) ([facility]) Unintentional weight loss Debility PFO (patent foramen ovale) Poor venous access Chronic back pain COPD (chronic obstructive pulmonary disease) ([facility]) Overview Signed 01/01/2022 6:48 AM by Interface, Incoming Problems- [facility] Conversion On home 3-4L NC DDD (degenerative disc disease), cervical Leukocytosis Malignant neoplasm of exocervix ([facility]) Recurrent major depression ([facility]) Pulmonary nodule Overview Signed 01/01/2022 [...] (115 lb) Mental Status: {SHAMA Patient Mental Status:31502} IV Access: {SHAMA IV Access:15062} Nursing Mobility/ADLs: Walking {YANETH ADL:::"Independent"} Transfer {YANETH ADL:::"Independent"} Bathing {YANETH ADL:::"Independent"} Dressing {YANETH ADL:::"Independent"} Toileting {YANETH ADL:::"Independent"} Feeding {YANETH ADL:::"Independent"} Hide Trimmer {YANETH ADL:::"Independent"} Med Delivery {yes/no:73119} Wound Care Documentation and Therapy: Wound/Incision 05/21/22 Traumatic Eye Right (Active) Number of days: 487 Wound/Incision 05/21/22 Traumatic Wrist Left;Posterior (Active) Number of days: 487 Wound/Incision 11/07/22 Incision Leg Anterior;Left;Proximal;Upper (Active) Number of days: 318 Elimination: Continence: Bowel: {yes/no:23289} Bladder: {yes/no:19885} Urinary Catheter: {SHAMA Urinary Catheter:86096} Colostomy/Ileostomy/Ileal Conduit: {YES / NO:} Date of Last BM: Intake/Output Summary (Last 24 hours) at 09/21/2023 1408 Last data filed at 09/21/2023 0218 Gross per 24 hour Intake -- Output 800 ml Net -800 ml I/O last 3 completed shifts: In: 752.1 (14.4 mL/kg) [I.V.:52.1 (1 mL/kg); IV Piggyback:700] Out: 800 (15.3 mL/kg) [Urine:800 (0.4 mL/kg/hr)] Weight: 52.2 kg Safety Concerns: {SHAMA Safety Concerns:02976} Impairments/Disabilities: {SHAMA Impairments/Disabilities:09198} Nutrition Therapy: Current Nutrition Therapy: {SHAMA Diet List:34380} Routes of Feeding: {routes of feedin} Liquids: {liquid consistency:65594} Daily Fluid Restriction: {daily fluid restriction:05033} Last Modified Barium Swallow with Video (Video Swallowing Test): {done not done:57138} Treatments at the Time of Hospital Discharge: Respiratory Treatments: Oxygen Therapy: {Therapy; copd oxygen:50869} Ventilator: {SHAMA Ventilator:01476} Rehab Therapies: {GEN THERAPY DISCIPLINE SCAL:4600036} Weight Bearing Status/Restrictions: {POD WEIGHT BEARIN} Other Medical Equipment (for information only, NOT a DME order): {Assistive Devices DME:33289} Other Treatments: Patient's personal belongings (please select all that are sent with patient): {SHAMA Patient Belongings:77747} RN SIGNATURE: {E-signature:61090} CASE MANAGEMENT/SOCIAL WORK SECTION Inpatient Status Date: Discharging to Facility/ Agency Name: [facility] Address: [address] [place] [address] \\ Dialysis Facility (if applicable) Name: Address: Dialysis Schedule: Phone: Fax: It Systems Manager/[employer] Contact Printer signature: {E-signature:20095} PHYSICIAN SECTION Name: Gonzalo Deluca Prognosis: {Rehab Prognosis:29039} Condition at Discharge: {Patient Condition:79012} Rehab Potential (if transferring to Rehab): {Rehab Prognosis:09902} Recommended Labs or Other Treatments After Discharge: The individual is being admitted to a nursing facility directly from an [facility] or a unit of a [facility] that is not operated by or licensed by [facility] under section 5119.14 or 5160-3-15.1 5 The individual requires the level of services provided by a nursing facility for the condition for which he or she was treated in the hospital and, Physician Certification: I certify the above information and transfer of Gonzalo Deluca is necessary for the continuing treatment of the diagnosis listed and that she requires {SHAMA Level of Care:25976} for {greater less than:94122} 30 days. Update Admission H&P: {SHAMA Changes in H&P:93915} PHYSICIAN SIGNATURE: {E-signature:54199} documented in this encounter [facility] 09-21-2023 Note Formatting of this n ote might be different from the original. Received message from Reny Telles APRN. Daughter Karishma requesting information on resources available to receive additional help in the home. Placed call to [phone]. Left voice mail and return call back number. [facility] is not here tomorrow -plan to return on Tuesday09/23/23. Made referral to [facility] per Reny Telles APRN. [facility] [email or web address] 09-21-2023 Note Formatting of this n ote might be different from the original. Received message from Reny Telles APRN. Daughter Karishma requesting information on resources available to receive additional help in the home. Placed call to [phone]. Left voice mail and return call back number. [facility] is not here tomorrow -plan to return on Tuesday09/23/23. Made referral to [facility] per Reny Telles APRN. [facility] [email or web address] 09-21-2023 Consult note Associated Order (s): IP [...] apparently had been a problem for her [employer]. Initial presentation significant for hypokalemia and MARIA. [...] Bronchitis Cancer (CMS/HCC) (HCC) skin Cervical cancer ([facility]/HCC) ([facility]) Chest pain COPD (chronic obstructive pulmonary disease) ([facility]) USE OXYGEN 3 L AT NIGHT DDD (degenerative disc disease), cervical Defect, retina, with detachment right DJD (degenerative joint disease), lumbar Emphysema lung ([facility]) Former smoker Hematuria SCHEDULED FOR THE PROCEDURE /SURGERY ON 02/11/2017 Hypokalemia Lung nodules Near syncope 09/19/2023 Osteoporosis Palpitations Pneumonia Recurrent major depression ([facility]) Sciatica Thoracic compression fracture ([facility]) Vitamin D deficiency Past Surgical History: Past Surgical History: Procedure Laterality Date CYSTOSCOPY 01/12/2017 OFFICE PROCEDURE CYSTOSCOPY 02/11/2017 C&P bladder biopsy EYE SURGERY detached retina 1994 HYSTERECTOMY 11/06/2019 ABDOMINAL RADICAL HYSTERECTOMY WITH BSO AND PELVIC LYMPH; DR[facility] ZIYAD MENENDEZ [facility] OTHER SURGICAL HISTORY Left 12/19/2019 Med Port POWER Regular Size OTHER SURGICAL HISTORY Left 11/07/2022 Percutaneous skeltal fixation femoral fracture TUBAL LIGATION 1992 CURRENT MEDICATIONS/ALLERGIES: Current Facility-Administered Medications Medication Dose Route Frequency Provider Last Rate Last Admin acetaminophen (Tylenol) tablet 650 mg 650 mg Oral q6h PRN Lauren Seran MD Or acetaminophen (Tylenol) suppository 650 mg 650 mg Rectal q6h PRN Lauren Serna MD acetaminophen (Tylenol) tablet 650 mg 650 mg Oral TID Saad Ezzie, SOUND PRINTER - DENTIST 650 mg at 09/21/23 1339 buPROPion XL (Wellbutrin XL) 24 hr tablet 150 mg 150 mg Oral Daily Lauren Serna MD 150 mg at 09/21/23 0822 busPIRone (Buspar) tablet 15 mg 15 mg Oral TID Saad Ezzie, SOUND PRINTER - DENTIST 15 mg at 09/21/23 1340 calcitonin (Miacalcin) injection 50 Units 50 Units IntraMUSCular Daily Lauren Serna MD 50 Units at 09/21/23 1217 [START ON 09/22/2023] cholecalciferol (Vitamin D-3) tablet 1,000 Units 1,000 Units Oral Daily Saad Ezzie, SOUND PRINTER - DENTIST enoxaparin (Lovenox) syringe 40 mg 40 mg SubCUTAneous Daily Lauren Serna MD 40 mg at 09/21/23 0822 lidocaine (LMX) 4 % cream Topical PRN Lauren Serna MD melatonin tablet 3 mg 3 mg Oral Nightly Saad Ezzie, SOUND PRINTER - DENTIST mirtazapine (Remeron) tablet 15 mg 15 mg Oral Nightly Saad Ezzie, SOUND PRINTER - DENTIST 15 mg at 09/20/23 2123 mometasone-formoterol (Dulera [...] mg 30 mg Oral Daily Saad Ezdariene, SOUND PRINTER - DENTIST 30 mg at 09/21/23 0822 perflutren protein [...] tablet 1 tablet Oral Nightly Saad Haynese, SOUND PRINTER - DENTIST tiotropium (Spiriva Respimat) 2.5 MCG/ACT inhaler 2 [...] QT Interval 382 QTC Interval 446 P Hammond 46 QRS Hammond -35 T Wave Hammond 147 AR Interval 142 Impression Sinus rhythm Nonspecific T [...] Significant recent weight loss, questionable PO intake [employer] leading to weakness/fall. Prolonged QT related to [...] primary team. Follow up: will follow peripherally [employer] Phone: 09-21-2023 Consult note Associated Order (s): [...] apparently had been a problem for her [employer]. Initial presentation significant for hypokalemia and MARIA. [...] Acute exacerbation of chronic obstructive pulmonary disease ([facility]) 04/12/2018 Allergic rhinitis Arthritis Asthma Bronchitis Cancer ([facility]) ([facility]) skin Cervical cancer ([facility]) ([facility]) Chest pain COPD (chronic obstructive pulmonary disease) ([facility]) USE OXYGEN 3 L AT NIGHT DDD (degenerative disc disease), cervical Defect, retina, with detachment right DJD (degenerative joint disease), lumbar Emphysema lung ([facility]) Former smoker Hematuria SCHEDULED FOR THE PROCEDURE /SURGERY ON 02/11/2017 Hypokalemia Lung nodules Near syncope 09/19/2023 Osteoporosis Palpitations Pneumonia Recurrent major depression ([facility]) Sciatica Thoracic compression fracture ([facility]) Vitamin D deficiency Past Surgical [...] mg 650 mg Oral TID Saad Ezzie, SOUND PRINTER - DENTIST 650 mg at 09/21/23 1339 buPROPion XL (Wellbutrin XL) 24 hr tablet 150 mg 150 mg Oral Daily Lauren Serna MD 150 mg at 09/21/23 0822 busPIRone (Buspar) tablet 15 mg 15 mg Oral TID Saad Ezzie, SOUND PRINTER - DENTIST 15 mg at 09/21/23 1340 calcitonin (Miacalcin) injection 50 Units 50 Units IntraMUSCular Daily Lauren Serna MD 50 Units at 09/21/23 1217 [START ON 09/22/2023] cholecalciferol (Vitamin D-3) tablet 1,000 Units 1,000 Units Oral Daily Saad Ezzie, SOUND PRINTER - DENTIST enoxaparin (Lovenox) syringe 40 mg 40 mg SubCUTAneous Daily Lauren Serna MD 40 mg at 09/21/23 0822 lidocaine (LMX) 4 % cream Topical PRN Lauren Serna MD melatonin tablet 3 mg 3 mg Oral Nightly Saad Ezzie, SOUND PRINTER - DENTIST mirtazapine (Remeron) tablet 15 mg 15 mg Oral Nightly Saad Ezzie, SOUND PRINTER - DENTIST 15 mg at 09/20/23 2123 mometasone-formoterol (Dulera [...] mg Oral Daily Saad Telles APRN - DENTIST 30 mg at 09/21/23 0822 perflutren protein [...] QT Interval 382 QTC Interval 446 P Hammond 46 QRS Hammond -35 T Wave Hammond 147 AR Interval 142 Impression Sinus rhythm Nonspecific T [...] Significant recent weight loss, questionable PO intake [employer] leading to weakness/fall. Prolonged QT related to [...] peripherally Associated Order(s): IP CONSULT TO GERIATRICS [facility] Geriatric Medicine Inpatient Consult Service Admission [...] depression, Vit D deficiency, Osteoporosis presented to [facility] on 09/19/23 for fall. Found to [...] . Advance Care Planning Healthcare Power of Glazing Department Supervisor: Unknown Financial Power of Glazing Department Supervisor: Unknown Living Will:Unknown Code Status: Full [...] Allergic rhinitis Arthritis Asthma Bronchitis Cancer (CMS/HCC) ([facility]) skin Cervical cancer (CMS/HCC) (HCC) Chest pain COPD (chronic obstructive pulmonary disease) ([facility]) USE OXYGEN 3 L AT NIGHT DDD (degenerative disc disease), cervical Defect, retina, with detachment right DJD (degenerative joint disease), lumbar Emphysema lung ([facility]) Former smoker Hematuria SCHEDULED FOR THE PROCEDURE /SURGERY ON 02/11/2017 Hypokalemia Lung nodules Near syncope 09/19/2023 Osteoporosis Palpitations Pneumonia Recurrent major depression ([facility]) Sciatica Thoracic compression fracture ([facility]) Vitamin D deficiency Past Surgical [...] 468 ms QTC Interval 594 ms P Hammond 25 degrees QRS Hammond -48 degrees T Wave Hammond 0 degrees AR Interval 140 ms CBC auto differential Collection [...] 382 ms QTC Interval 446 ms P Hammond 46 degrees QRS Hammond -35 degrees T Wave Hammond 147 degrees AR Interval 142 ms Transthoracic echocardiogram (TTE) complete [...] PM Associated Order(s): IP CONSULT TO CARDIOLOGY [facility] [place] [facility] Cardiology Consult Note Reason for Consult/Chief Complaint: "Syncope" Established arch support technician: None History of Present Illness: Gonzalo Deluca [...] primary service arrange f/u with patient's outpatient arch support technician 1-2 wks. [] Recommended; unable to arrange at this time, will arrange post-discharge [] Arranged as follows: If there are any questions/concerns, please contact the covering provider. If no answer by Secure Chat, please call the cardiology office to obtain appropriate covering NUTRITION HELPER/physician. Medications: buPROPion XL, 150 mg, Oral, Daily [...] Allergic rhinitis Arthritis Asthma Bronchitis Cancer (CMS/HCC) ([facility]) skin Cervical cancer (CMS/HCC) ([facility]) Chest pain COPD (chronic obstructive pulmonary disease) ([facility]) USE OXYGEN 3 L AT NIGHT DDD (degenerative disc disease), cervical Defect, retina, with detachment right DJD (degenerative joint disease), lumbar Emphysema lung ([facility]) Former smoker Hematuria SCHEDULED FOR THE PROCEDURE /SURGERY ON 02/11/2017 Hypokalemia Lung nodules Near syncope 09/19/2023 Osteoporosis Palpitations Pneumonia Recurrent major depression ([facility]) Sciatica Thoracic compression fracture ([facility]) Vitamin D deficiency Past Surgical [...] follow with you. documented in this encounter [facility] 09-21-2023 Telephone encounter Note Orders or will Dr. Case follow? She will follow. We don't typically give home care orders. Melva Juárez PA-C [facility] 09-21-2023 Telephone encounter Note Ashley from [facility] Patient currently admitted for falls Need orders to follow for Home Care Call back number: [phone] [facility] 09-21-2023 Note Formatting of this n ote is different from the original. Images from the original note were not included. Care Management Progress Note Chart reviewed. Patient remains on 2 east for treatment of falls and lumbar compression. Has LSO brace at home (per Ortho notes). Geriatrics following. PT recommends return home with home care. liaison planner following. Currently on 3 liters oxygen; wears [...] Stay (Days): 2 GMLOS: No GMLOS Documented [facility] 09-21-2023 Note Formatting of this n ote is different from the original. Images from the original note were not included. Care Management Progress Note Chart reviewed. Patient remains on 2 east for treatment of falls and lumbar compression. Has LSO brace at home (per Ortho notes). Geriatrics following. PT recommends return home with home care. liaison planner following. Currently on 3 liters oxygen; wears [...] Stay (Days): 2 GMLOS: No GMLOS Documented [facility] [email or web address] 09-21-2023 Note Formatting of this n ote is different from the original. Start PACC Note Home Health Referral Educated patient and daughter, Karishma, on Home Care and services available. Patient offered choice of available HHC and agreeable to SN, PT services with [facility]. Care Types: [...] is noted as yes - consider a CHASER TAR evaluation once the patient returns home. START PATIENT REGISTRATION INFORMATION Order Information Order Signing Physician: Nickolas Marrero MD Service Ordered RN ?: Yes Service Ordered PT ?: Yes Service Ordered OT ?: No Service Ordered ST ?: No Service Ordered CHASER TAR?:No Service Ordered AEROSPACE ENGINEER OFFICER ARMAMENT?: No Following Physician: HERMINIA CASE MD Following Physician Overseeing Physician: HERMINIA CASE MD (Required for Residents only) Agreeable to Follow? Yes Date/Time of Call 09/21/23 2:04 PM, Spoke with: yes per call back received from office . Care Coordination Same Day SOC?: No Primary Care Physician: HERMINIA CASE MD Primary Care Physician Primary Care Physician Address: [address] [place] [id number] Visit Instructions: N/A Service Discharge Location Type: Home with Home Health Care Service Facility Name: N/A Service Floor Facility: N/A Service Room No: N/A Demographics Patient Last Name: Yosi Patient First Name: Gonzalo Language/Communication Barrier: DAUGHTER KARISHMA IS CONTACT Service Address: [address] Service City: [facility] ST: [place] Service ZIP: [address] Service Other phone numbers: Telephone Information: Emergency Contact: Extended Emergency Contact Information Primary Emergency Contact: RaudelsumeetKarishma leblanc Address: [address] [place] [address] [facility] Mobile Relation: Daughter Secondary Emergency Contact: Jace Deluca Mobile Relation: Son Admission Information Admit Date: 09/19/2023 Patient status at discharge: Inpatient Admitting Diagnosis: Near syncope [R55] Closed head injury, initial encounter [S09.90XA] Fall, initial encounter [W19.XXXA] Compression fracture of T7 vertebra, initial encounter ([facility]) [S22.060A] Compression fracture of T8 vertebra, initial encounter ([facility]) [S22.060A] Compression fracture of T5 vertebra, initial encounter ([facility]) [S22.050A] Compression fracture of L1 vertebra, initial encounter ([facility]) [S32.010A] Caregiver Information Caregiver First Name: NA Caregiver Last Name: NA Caregiver Relationship to Patient NA Caregiver Phone Number: NA Caregiver Notes: N/A [employer] List No END PATIENT REGISTRATION INFORMATION Pt [...] diagnoses: Discharge Date: TBD Referral Source-PACC: (Hospital/Unit): [facility] / B2-261/B2-261 A End PACC Note [facility] 09-21-2023 Note Formatting of this n ote is different from the original. Start PACC Note Home Health Referral Educated patient and daughter, Karsihma, on Home Care and services available. Patient offered choice of available HHC and agreeable to SN, PT services with [facility] - Home Care. [...] is noted as yes - consider a CHASER TAR evaluation once the patient returns home. START PATIENT REGISTRATION INFORMATION Order Information Order Signing Physician: Nickolas Marrero MD Service Ordered RN ?: Yes Service Ordered PT ?: Yes Service Ordered OT ?: No Service Ordered ST ?: No Service Ordered CHASER TAR?:No Service Ordered AEROSPACE ENGINEER OFFICER ARMAMENT?: No Following Physician: HERMINIA CASE MD Following Physician Overseeing Physician: HERMINIA CASE MD (Required for Residents only) Agreeable to Follow? Yes Date/Time of Call 09/21/23 2:04 PM, Spoke with: yes per call back received from office . Care Coordination Same Day SOC?: No Primary Care Physician: HERMINIA CASE MD Primary Care Physician Primary Care Physician Address: [address] [place] [id number] Visit Instructions: N/A Service Discharge Location Type: Home with Home Health Care Service Facility Name: N/A Service Floor Facility: N/A Service Room No: N/A Demographics Patient Last Name: Yosi Patient First Name: Gonzalo Language/Communication Barrier: DAUGHTER KARISHMA IS CONTACT Service Address: [address] [place] [address] [facility] City: [facility]: [place] Service ZIP: [address] [facility] Other phone numbers: Telephone Information: Emergency Contact: Extended Emergency Contact Information Primary Emergency Contact: Karishma Deluca Address: [address] [place] [address] [place] [address] [facility] Mobile Relation: Daughter Secondary Emergency Contact: Jace Deluca Mobile Relation: Son Admission Information Admit Date: 09/19/2023 Patient status at discharge: Inpatient Admitting Diagnosis: Near syncope [R55] Closed head injury, initial encounter [S09.90XA] Fall, initial encounter [W19.XXXA] Compression fracture of T7 vertebra, initial encounter ([facility]) [S22.060A] Compression fracture of T8 vertebra, initial encounter ([facility]) [S22.060A] Compression fracture of T5 vertebra, initial encounter ([facility]) [S22.050A] Compression fracture of L1 vertebra, initial encounter ([facility]) [S32.010A] Caregiver Information Caregiver First Name: NA Caregiver Last Name: NA Caregiver Relationship to Patient NA Caregiver Phone Number: NA Caregiver Notes: N/A [employer] List No END PATIENT REGISTRATION INFORMATION Pt [...] diagnoses: Discharge Date: TBD Referral Source-PACC: (Hospital/Unit): [facility] / B2-261/-261 A End PACC Note [facility] 09-21-2023 Plan of care note The patient is Moderately Unstable - Medium risk of patient condition declining or worsening The patient's goals for the shift include safety and comfort The clinical goals for the shift include safety [facility] 09-20-2023 Consult note Associated Order (s): IP CONSULT TO GERIATRICS [facility] Geriatric Medicine Inpatient Consult Service Admission [...] depression, Vit D deficiency, Osteoporosis presented to [facility] on 09/19/23 for fall. Found to [...] . Advance Care Planning Healthcare Power of Glazing Department Supervisor: Unknown Financial Power of Glazing Department Supervisor: Unknown Living Will:Unknown Code Status: Full [...] Chest pain COPD (chronic obstructive pulmonary disease) ([facility]) USE OXYGEN 3 L AT NIGHT DDD (degenerative disc disease), cervical Defect, retina, with detachment right DJD (degenerative joint disease), lumbar Emphysema lung (HCC) Former smoker Hematuria SCHEDULED FOR THE PROCEDURE /SURGERY ON 02/11/2017 Hypokalemia Lung nodules Near syncope 09/19/2023 Osteoporosis Palpitations Pneumonia Recurrent major depression ([facility]) Sciatica Thoracic compression fracture ([facility]) Vitamin D deficiency Past Surgical [...] 468 ms QTC Interval 594 ms P Hammond 25 degrees QRS Hammond -48 degrees T Wave Hammond 0 degrees AR Interval 140 ms CBC auto differential Collection [...] 44.2 (L) >60.0 mL/min/1.73m*2 Blood gas, venous ([facility]) Collection Time: 09/19/23 [...] 382 ms QTC Interval 446 ms P Hammond 46 degrees QRS Hammond -35 degrees T Wave Hammond 147 degrees AR Interval 142 ms Transthoracic echocardiogram (TTE) complete [...] follow with you Saad Telles, DB - DENTIST 09/20/23 4:58 PM [facility] 09-20-2023 Note Formatting of this n ote might be different from the original. Care Managment Initial Assessment Date: 09/20/2023 Patient Name: Gonzalo Deluca : 1955 Patient Information Source of Information: Patient Cognition/Language: WFL - Within Functional Limits Permission given to speak with patient personnel representative/caregiver as indicated: Yes Confirmation of Payer with patient/family: Yes Payer Name: [facility] Dual Complete Sedan: No Confirmation of Primary Care Physician: Confirmed [...] Prescription Coverage: Yes Pharmacy Used[facility] [place] Medication Management: Independent Transportation/Shopping: Transportation Mode: Car [...] to be discharged to: Home with possible [facility] Discharge Planning Actions: Continue to follow [...] home with possible HHC at this time. 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 Carolina Alvarez RN [facility] 09-20-2023 Note Formatting of this n ote might be different from the original. Care Managment Initial Assessment Date: 09/20/2023 Patient Name: Gonzalo Deluca : 1955 Patient Information Source of Information: Patient Cognition/Language: WFL - Within Functional Limits Permission given to speak with patient personnel representative/caregiver as indicated: Yes Confirmation of Payer with patient/family: Yes Payer Name: [facility] Dual Complete Sedan: No Confirmation of Primary Care Physician: Confirmed [...] Prescription Coverage: Yes [facility]acy Used[facility] [place] Medication Management: Independent Transportation/Shopping: Transportation Mode: Car [...] home with possible HHC at this time. 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 Carolina Alvarez RN [facility] 09-20-2023 Consult note Associated Order (s): IP CONSULT TO CARDIOLOGY [facility] [place] [facility] Cardiology Consult Note Reason for Consult/Chief Complaint: "Syncope" Established arch support technician: None History of Present Illness: Gonzalo Deluca [...] primary service arrange f/u with patient's outpatient arch support technician 1-2 wks. [] Recommended; unable to arrange at this time, will arrange post-discharge [] Arranged as follows: If there are any questions/concerns, please contact the covering provider. If no answer by Secure Chat, please call the cardiology office to obtain appropriate covering NUTRITION HELPER/physician. Medications: buPROPion XL, 150 mg, Oral, Daily [...] Ovalles MD DATE of SERVICE: 09/20/2023 T [facility] 09-20-2023 Consult note Associated Order [...] rhinitis Arthritis Asthma Bronchitis Cancer ([facility]) ([facility]) skin Cervical cancer ([facility]) ([facility]) Chest pain COPD (chronic obstructive pulmonary disease) ([facility]) USE OXYGEN 3 L AT NIGHT DDD (degenerative disc disease), cervical Defect, retina, with detachment right DJD (degenerative joint disease), lumbar Emphysema lung ([facility]) Former smoker Hematuria SCHEDULED FOR THE PROCEDURE /SURGERY ON 02/11/2017 Hypokalemia Lung nodules Near syncope 09/19/2023 Osteoporosis Palpitations Pneumonia Recurrent major depression ([facility]) Sciatica Thoracic compression fracture ([facility]) Vitamin D deficiency Past Surgical [...] the consult we will follow with you. [facility] 09-20-2023 Plan of care note [...] Recommendations to address these barriers include . [facility] 09-19-2023 Nurse Note Explained to patient about transfer to 261. Patient verbalized understanding. Report called to 2e rn. No further questions at present. Attempted to restart potassium. Patient c./o paon at iv site. Potassium slowed and arm raised. Patient transported with oxygen and transport monitor to room 261. [facility] 09-19-2023 Nurse Note Explained to [...] when bed available. documented in this encounter [facility] 09-19-2023 History and physical note Images from the original note were not included. History and Physical [facility] Gonzalo Deluca : 1955 AGE 67 y.o. YEARS Note Date 09/19/2023 Primary Care Physician:HERMINIA CASE MD Current Providers as of 09/19/2023 PCP: Herminia Case MD Care Team Provider: Ziyad Menendez MD Care Team Provider: Sally Rocha APRN - DENTIST Care Team Provider: Kisha Pepe APRN - [place] Referring Provider: not found, starting on TueSep 19, 2023 12:00 AM Admitting Provider: Nickolas Marrero MD, (Active) Attending Provider: Jono Weathers MD, starting on TueSep 19, 2023 4:43 PM, ending on TueSep 19, 2023 8:41 PM (Inactive) Attending Provider: Nickolas Marrero MD, starting on TueSep 19, 2023 6:48 PM (Active) Dermatologist And Dermatopathologist RES: Heydi Ceballos MD, starting on TueSep [...] Chest pain COPD (chronic obstructive pulmonary disease) ([facility]) USE OXYGEN 3 L AT NIGHT DDD (degenerative disc disease), cervical Defect, retina, with detachment right DJD (degenerative joint disease), lumbar Emphysema lung ([facility]) Former smoker Hematuria SCHEDULED FOR THE PROCEDURE /SURGERY ON 02/11/2017 Hypokalemia Lung nodules Near syncope 09/19/2023 Osteoporosis Palpitations Pneumonia Recurrent major depression ([facility]) Sciatica Thoracic compression fracture ([facility]) Vitamin D deficiency She is [...] 09/19/2023 468 QTC Interval 09/19/2023 594 P Hammond 09/19/2023 25 QRS Hammond 09/19/2023 -48 T Wave Hammond 09/19/2023 0 AR Interval 09/19/2023 140 Auto WBC 09/19/2023 19.5 [...] QT Interval 468 QTC Interval 594 P Hammond 25 QRS Hammond -48 T Wave Hammond 0 AR Interval 140 Impression Sinus rhythm Inferior infarct, [...] will request orthopedics to see her as [facility] orthopedics has seen her in the past [...] pharmacologic and mechanical contraindicated 09/19/2023 Gonzalo Deluca [id number] Any scheduled follow up appointments Extended Emergency Contact Information Primary Emergency Contact: Karishma Deluca Address: [address] [place] [address] [place] [address] [facility] Mobile Relation: Daughter Secondary Emergency Contact: Jace Deluca Mobile Relation: Son Portions of this note may be electronically transcribed. Please forward a copy of this H&P to the primary care physician. [facility] Work Phone: 09-19-2023 History and physical note Images from the original note were not included. History and Physical [facility] Gonzalo Deluca : 1955 AGE 67 [...] on TueSep 19, 2023 6:48 PM (Active) Dermatologist And Dermatopathologist RES: Heydi Ceballos MD, starting on TueSep [...] Allergic rhinitis Arthritis Asthma Bronchitis Cancer (CMS/HCC) ([facility]) skin Cervical cancer (CMS/HCC) ([facility]) Chest pain COPD (chronic obstructive pulmonary disease) ([facility]) USE OXYGEN 3 L AT NIGHT DDD (degenerative disc disease), cervical Defect, retina, with detachment right DJD (degenerative joint disease), lumbar Emphysema lung ([facility]) Former smoker Hematuria SCHEDULED FOR THE PROCEDURE /SURGERY ON 02/11/2017 Hypokalemia Lung nodules Near syncope 09/19/2023 Osteoporosis Palpitations Pneumonia Recurrent major depression ([facility]) Sciatica Thoracic compression fracture ([facility]) Vitamin D deficiency She is [...] 5 mg, 5 mg, Oral, Once, Heydi Cebalols MD potassium chloride IVPB 10 mEq, 10 [...] 09/19/2023 468 QTC Interval 09/19/2023 594 P Hammond 09/19/2023 25 QRS Hammond 09/19/2023 -48 T Wave Hammond 09/19/2023 0 AR Interval 09/19/2023 140 Auto WBC 09/19/2023 19.5 [...] QT Interval 468 QTC Interval 594 P Hammond 25 QRS Hammond -48 T Wave Hammond 0 AR Interval 140 Impression Sinus rhythm Inferior infarct, [...] will request orthopedics to see her as [facility] orthopedics has seen her in the past [...] pharmacologic and mechanical contraindicated 09/19/2023 Gonzalo Deluca [id number] Any scheduled follow up appointments Extended Emergency Contact Information Primary Emergency Contact: Karishma Deluca Address: [address] [place] [address] [place] [address] [facility] Mobile Relation: Daughter Secondary Emergency Contact: Jace Deluac Mobile Relation: Son Portions of this note may be electronically transcribed. Please forward a copy of this H&P to the primary care physician. documented in this encounter [facility] 09-19-2023 Nurse Note Patient arrived from er to room 463 bed 2. Patient is alert and oriented. Realized patient required private room bed coordinator notified. Will be transferred when bed available. [facility] 09-19-2023 Emergency department Note Floor advised of pt coming to floor. VERA Brown 09/19/231945 [facility] 09-19-2023 Emergency department Note Floor [...] Allergic rhinitis Arthritis Asthma Bronchitis Cancer (CMS/HCC) ([facility]) skin Cervical cancer (CMS/HCC) ([facility]) Chest pain COPD (chronic obstructive pulmonary disease) ([facility]) USE OXYGEN 3 L AT NIGHT DDD (degenerative disc disease), cervical Defect, retina, with detachment right DJD (degenerative joint disease), lumbar Emphysema lung ([facility]) Former smoker Hematuria SCHEDULED FOR THE PROCEDURE /SURGERY ON 02/11/2017 Hypokalemia Lung nodules Near syncope 09/19/2023 Osteoporosis Palpitations Pneumonia Recurrent major depression ([facility]) Sciatica Thoracic compression fracture ([facility]) Vitamin D deficiency SURGICAL HISTORY [...] Resource Strain: Low Risk (05/20/2023) Received from [facility] Overall Financial Resource Strain (CARDIA) Difficulty of Paying Living Expenses: Not very hard Food Insecurity: No Food Insecurity (05/20/2023) Received from [facility] Hunger Vital Sign Worried About Running Out of Food in the Last Year: Never true Ran Out of Food in the Last Year: Never true Transportation Needs: No Transportation Needs (05/20/2023) Received from [facility] PRAPARE - Transportation Lack of Transportation (Medical): No Lack of Transportation (Non-Medical): No Physical Activity: Inactive (05/20/2023) [facility] Exercise Vital Sign Days of Exercise per Week: 0 days Minutes of Exercise per Session: 0 min Stress: Stress Concern Present (05/20/2023) Received from [facility] [place] of Occupational Health - Occupational Stress Questionnaire Feeling of Stress : To some extent Social Connections: Unknown (05/20/2023) Received from [facility] Social Connection and Isolation Panel [NHANES] Frequency of Communication with Friends and Family: Twice a week Frequency of Social Gatherings with Friends and Family: Patient declined Attends Gnosticist Services: Never Active Member of Clubs or Organizations: No Attends Club or Organization Meetings: Patient declined Marital Status: Intimate Partner Violence: Not At Risk (05/21/2022) Humiliation, Afraid, Rape, and Kick questionnaire Fear of Current or Ex-Partner: No Emotionally Abused: No Physically Abused: No Sexually Abused: No Housing Stability: Low Risk (05/20/2023) [facility] Housing Stability Vital Sign Unable to Pay for Housing in the Last Year: No Number of Places Lived in the Last Year: 1 In the last 12 months, was there a time when you did not have a steady place to sleep or slept in a fci (including now)?: No SCREENINGS PHYSICAL EXAM ED [...] me with my interpretation noted below in [facility]. Refer to [facility] for official interpretation. RADIOLOGY: Refer to [facility] below for my independent interpretation. Interpretation [...] Culture. Procedure Abnormality Status --------- ------ Complete Urinalysis[[id number]] Please view results for these tests on [...] Compression fracture of T7 vertebra, initial encounter ([facility]) 6. Compression fracture of T8 vertebra, initial encounter ([facility]) 7. Compression fracture of L1 vertebra, initial encounter ([facility]) DISPOSITION Admit 09/19/2023 06:48:16 PM [...] Ceballos MD Resident 09/19/231907 Emergency Department Encounter [facility] ED Patient: Gonzalo Deluca : 1955 Date [...] dictating provider for clarification.) Jono Weathers MD [facility] Jono Weathers MD 09/19/231903 documented in this encounter [facility] 09-19-2023 Emergency department Note Pt provided with a toni laurie and chicken salad sandwich. VERA Brown 09/19/23 194 [facility] 09-19-2023 Emergency department Note Pt on 2lpm of oxygen. Pt 89% on room air. Oxygen increased to 3lpm. VERA Brown 09/19/23 173 [facility] 09-19-2023 Emergency department Note Pt to radiology. VERA Brown 09/19/23 171 [facility] 09-19-2023 Physician Emergency department Note EMERGENCY DEPARTMENT ENCOUNTER Pt Name: Gonzalo Deluca Birthdate 1955 Date of evaluation: 09/19/2023 ED Provider: Hyedi Ceballos MD CHIEF COMPLAINT Chief Complaint Patient [...] Allergic rhinitis Arthritis Asthma Bronchitis Cancer (CMS/HCC) ([facility]) skin Cervical cancer (CMS/HCC) ([facility]) Chest pain COPD (chronic obstructive pulmonary disease) ([facility]) USE OXYGEN 3 L AT NIGHT DDD (degenerative disc disease), cervical Defect, retina, with detachment right DJD (degenerative joint disease), lumbar Emphysema lung ([facility]) Former smoker Hematuria SCHEDULED FOR THE PROCEDURE /SURGERY ON 02/11/2017 Hypokalemia Lung nodules Near syncope 09/19/2023 Osteoporosis Palpitations Pneumonia Recurrent major depression ([facility]) Sciatica Thoracic compression fracture ([facility]) Vitamin D deficiency SURGICAL HISTORY [...] Resource Strain: Low Risk (05/20/2023) Received from [facility] Overall Financial Resource Strain (CARDIA) Difficulty of Paying Living Expenses: Not very hard Food Insecurity: No Food Insecurity (05/20/2023) Received from [facility] Hunger Vital Sign Worried About Running Out of Food in the Last Year: Never true Ran Out of Food in the Last Year: Never true Transportation Needs: No Transportation Needs (05/20/2023) Received from [facility] PRAPARE - Transportation Lack of Transportation (Medical): No Lack of Transportation (Non-Medical): No Physical Activity: Inactive (05/20/2023) Received from [facility] Exercise Vital Sign Days of Exercise per Week: 0 days Minutes of Exercise per Session: 0 min Stress: Stress Concern Present (05/20/2023) Received from [facility] [employer] [place] of Occupational Health - Occupational Stress Questionnaire Feeling of Stress : To some extent Social Connections: Unknown (05/20/2023) Received from [facility] Social Connection and Isolation Panel [NHANES] Frequency of Communication with Friends and Family: Twice a week Frequency of Social Gatherings with Friends and Family: Patient declined Attends Gnosticist Services: Never Active Member of Clubs or Organizations: No Attends Club or Organization Meetings: Patient declined Marital Status: Intimate Partner Violence: Not At Risk (05/21/2022) Humiliation, Afraid, Rape, and Kick questionnaire Fear of Current or Ex-Partner: No Emotionally Abused: No Physically Abused: No Sexually Abused: No Housing Stability: Low Risk (05/20/2023) [facility] Housing Stability Vital Sign Unable to Pay for Housing in the Last Year: No Number of Places Lived in the Last Year: 1 In the last 12 months, was there a time when you did not have a steady place to sleep or slept in a fci (including now)?: No SCREENINGS PHYSICAL EXAM ED [...] me with my interpretation noted below in [facility]. Refer to [facility] for official interpretation. RADIOLOGY: Refer to [facility] below for my independent interpretation. Interpretation [...] Culture. Procedure Abnormality Status --------- ------ Complete Urinalysis[[id number]] Please view results for these tests on [...] Compression fracture of T7 vertebra, initial encounter ([facility]) Compression fracture of T8 vertebra, initial encounter ([facility]) Compression fracture of L1 vertebra, initial encounter ([facility]) External records reviewed: Chronic conditions [...] Compression fracture of T5 vertebra, initial encounter ([facility]) 5. Compression fracture of T7 vertebra, initial encounter ([facility]) 6. Compression fracture of T8 vertebra, initial encounter ([facility]) 7. Compression fracture of L1 vertebra, initial encounter ([facility]) DISPOSITION Admit 09/19/2023 06:48:16 PM [...] Medicine Resident Heydi Ceballos MD Resident 09/19/23 2474 [facility] 09-19-2023 Physician Emergency department Note Emergency Department Encounter [facility] ED Patient: Gonzalo Deluca : 1955 Date [...] [employer] Jono Weathers MD 09/19/23 [address] [employer] Phone: 09-16-2023 Telephone encounter Note Prescription Refill [...] Shay LPN September 16, 2023 10:08 AM [facility] 09-16-2023 Miscellaneous Notes Prescription Refill Information [...] 2023 10:08 AM documented in this encounter [facility] 09-15-2023 Telephone encounter Note Na sent [facility] 09-15-2023 Miscellaneous Notes Na sent Schedule follow up appt with me for chronic pain Pharmacy verified in [facility] Patient has been identified by name and [...] Silvia Trejo MA documented in this encounter [facility] 09-15-2023 Telephone encounter Note Schedule follow up appt with me for chronic pain [facility] 09-15-2023 Telephone encounter Note Pharmacy verified in [facility] Patient has been identified by name and [...] (132 lb 7.9 oz) Please advise. Silvia rTejo MA [facility] 09-14-2023 Telephone encounter Note Prescription Refill [...] Shay LPN September 14, 2023 10:57 AM [facility] 09-14-2023 Miscellaneous Notes Prescription Refill Information [...] 2023 10:57 AM documented in this encounter [facility] 09-08-2023 Note HNO ID: [id number] Author: BARBI GOLDBERG MD Service: ? Author [...] PREDNISONE 10 MG TABLET Barbi Goldberg MD [facility] 09-08-2023 History of Presen t illness Narrative oGnzalo Deluca is a 67 year old female [...] due on 03/21/2023 documented in this encounter [facility] 09-08-2023 Note HNO ID: [id number] Author: TATE WEATHERS MA Service: ? Author Type: Vocational Instructor Type: Progress Notes Filed: 09/08/2023 16:09 Note Text: Mammogram Screening Never done Colorectal Cancer Screening Never done RSV Vaccine(1 - 1-dose 60+ series) Never done Shingrix Vaccine(2 of 2) due on 12/06/2019 Bone Density Screening due on 2021 Lung Cancer Screening due on 10/14/2022 Covid-19 Vaccine(2022- season) Never done Advance Directive Discussion due on 03/21/2023 [facility] 09-07-2023 Telephone encounter Note LM for patient letting her know we have not received the form from [employer]. Whit Shay LPN [facility] 09-07-2023 Miscellaneous Notes LM for patient letting her know we have not received the form from [employer]. Whit Shay LPN Gonzalo is calling Herminia Case MD today with concern regarding Electronic Communication (FAX from [employer] is going to be coming over that needs to be faxed back to them ) Patient has been identified by name and birthdate. Duration of symptoms: N/A Person calling: self daughter: Karishma Call patient at: at home [phone] (home) [phone] (cell) Was an appointment scheduled: No Closing statement: Results or non-symptom based questions: Thank you for calling [facility], your call will be returned within the next business day. Lala Jay documented in this encounter [facility] 09-06-2023 Telephone encounter Note Gonzalo is calling Herminia Case MD today with concern regarding Electronic Communication (FAX from [employer] is going to be coming over that needs to be faxed back to them ) Patient has been identified by name and birthdate. Duration of symptoms: N/A Person calling: self daughter: Karishma Call patient at: at home [phone] (home) [phone] (cell) Was an appointment scheduled: No Closing statement: Results or non-symptom based questions: Thank you for calling [facility], your call will be returned within the next business day. Lala Jay [facility] 08-22-2023 Telephone encounter Note Last appointment: 05/20/23 Next appointment: 08/24/23 Pharmacy verified in [facility]. Refill(s) requested: Requested Prescriptions Pending Prescriptions Disp Refills oxyCODONE-acetaminophen (PERCOCET) 5-325 mg tablet 120 tablet 0 Sig: Take 1 tablet by mouth every 6 hours as needed for pain for up to 30 days. Refused Prescriptions Disp Refills cyclobenzaprine (FLEXERIL) 5 mg tablet 30 tablet 2 Sig: Take 1 tablet by mouth every 12 hours. Order(s) pended. Please advise. Tate Weathers MA, BUSINESS ANALYTICS SPECIALIST [facility] 08-22-2023 Miscellaneous Notes Last appointment: 05/20/23 Next appointment: 08/24/23 Pharmacy verified in [facility]. Refill(s) requested: Requested Prescriptions Pending Prescriptions Disp Refills oxyCODONE-acetaminophen (PERCOCET) 5-325 mg tablet 120 tablet 0 Sig: Take 1 tablet by mouth every 6 hours as needed for pain for up to 30 days. Refused Prescriptions Disp Refills cyclobenzaprine (FLEXERIL) 5 mg tablet 30 tablet 2 Sig: Take 1 tablet by mouth every 12 hours. Order(s) pended. Please advise. Tate Weathers MA, BUSINESS ANALYTICS SPECIALIST documented in this encounter [facility] 08-05-2023 Telephone encounter Note Last appointment: 06/10/23 Next appointment: 08/16/23 Pharmacy verified in [facility]. Refill(s) requested: Requested Prescriptions Pending Prescriptions Disp Refills cyclobenzaprine (FLEXERIL) 5 mg tablet [Pharmacy Med Name: CYCLOBENZAPRINE 5 MG TABLET] 30 tablet 2 Sig: take 1 tablet by mouth twice a day as needed Order(s) pended. Please advise. Whit Shay LPN, BUSINESS ANALYTICS SPECIALIST [facility] 08-05-2023 Miscellaneous Notes Last appointment: 06/10/23 Next appointment: 08/16/23 Pharmacy verified in [facility]. Refill(s) requested: Requested Prescriptions Pending Prescriptions Disp Refills cyclobenzaprine (FLEXERIL) 5 mg tablet [Pharmacy Med Name: CYCLOBENZAPRINE 5 MG TABLET] 30 tablet 2 Sig: take 1 tablet by mouth twice a day as needed Order(s) pended. Please advise. Whit Shay LPN BUSINESS ANALYTICS SPECIALIST documented in this encounter [facility] 07-23-2023 Telephone encounter Note Last appointment: 06/10/23 Next appointment: 08/03/23 Pharmacy verified in [facility]. Refill(s) requested: Requested Prescriptions Pending Prescriptions Disp Refills oxyCODONE-acetaminophen (PERCOCET) 5-325 mg tablet 120 tablet 0 Sig: Take 1 tablet by mouth every 6 hours as needed for pain for up to 30 days. Order(s) pended. Please advise. Whit Shay LPN, BUSINESS ANALYTICS SPECIALIST [facility] 07-23-2023 Miscellaneous Notes Last appointment: 06/10/23 Next appointment: 08/03/23 Pharmacy verified in [facility]. Refill(s) requested: Requested Prescriptions Pending Prescriptions Disp Refills oxyCODONE-acetaminophen (PERCOCET) 5-325 mg tablet 120 tablet 0 Sig: Take 1 tablet by mouth every 6 hours as needed for pain for up to 30 days. Order(s) pended. Please advise. Whit Shay LPN, ELISEO documented in this encounter [facility] 07-20-2023 Telephone encounter Note Pharmacy verified in [facility] Patient has been identified by name and [...] for: "B12" Please advise. Nicole Sabillon MA [facility] 07-20-2023 Miscellaneous Notes Pharmacy verified in [...] Nicole Sabillon MA documented in this encounter [facility] 07-08-2023 Telephone encounter Note LM for patient to call the office. Whit Shay LPN [facility] 07-08-2023 Miscellaneous Notes LM for patient to call the office. Whit Shay LPN Rx sent for advair which is similar. Received fax from [employer], the Fluticasone-Vilanterol 200-25, is not covered by insurance. Please advise. Whit Shay LPN documented in this encounter [facility] 07-08-2023 Telephone encounter Note Rx sent for advair which is similar. [facility] 07-04-2023 Miscellaneous Notes Pharmacy verified in [...] Alejandra Reno MA documented in this encounter [facility] 06-30-2023 Telephone encounter Note Received fax from [facility], the Fluticasone-Vilanterol 200-25, is not covered by insurance. Please advise. Whit Shay LPN [facility] 06-28-2023 Miscellaneous Notes Last appointment: 06/10/23 Next appointment: 07/22/23 Pharmacy verified in [facility]. Refill(s) requested: Requested Prescriptions Pending Prescriptions Disp Refills fluticasone-vilanterol (BREO ELLIPTA) 200-25 mcg/dose inhaler 60 Each 5 Sig: Inhale 1 Inhalation as instructed once daily. Order(s) pended. Please advise. Whit Shay LPN, BUSINESS ANALYTICS SPECIALIST documented in this encounter [facility] 06-27-2023 Miscellaneous Notes Pharmacy verified in [facility] Patient has been identified by name and [...] Alejandra Reno MA documented in this encounter [facility] 06-24-2023 Miscellaneous Notes Last appointment: 06/10/23 Next appointment: 07/22/23 Pharmacy verified in [facility]. Refill(s) requested: Requested Prescriptions Pending Prescriptions Disp Refills busPIRone (BUSPAR) 15 mg tablet 90 tablet 0 Sig: Take 1 tablet by mouth three times a day. Order(s) pended. Please advise. Rayo Roman MA, BUSINESS ANALYTICS SPECIALIST documented in this encounter [facility] 06-11-2023 Miscellaneous Notes Last appointment: 06/10/23 Next appointment: 07/22/23 Pharmacy verified in [facility]. Refill(s) requested: Requested Prescriptions Pending Prescriptions Disp Refills cyclobenzaprine (FLEXERIL) 5 mg tablet [Pharmacy Med Name: CYCLOBENZAPRINE 5 MG TABLET] 30 tablet 2 Sig: take 1 tablet by mouth twice a day as needed Order(s) pended. Please advise. Whit Shay LPN, BUSINESS ANALYTICS SPECIALIST documented in this encounter [facility] 06-10-2023 History of Presen t illness Narrative VIRTUAL VISIT PROGRESS NOTE This is a virtual visit using [employer] Video Visit. It required patient-provider interaction for the medical decision making as documented below. I have communicated my name and active licensure. The patient's identity and physical location were verified at the time of this visit. Either the patient or their legal personnel representative has been informed of the risks [...] Herminia Case MD documented in this encounter [facility] 05-27-2023 Miscellaneous Notes Pharmacy verified in [...] Nicole Sabillon Ma documented in this encounter [facility] 05-26-2023 Miscellaneous Notes Last appointment: 05-20-23 Next appointment: 06-10-23 Pharmacy verified in [facility]. Refill(s) requested: Requested Prescriptions Pending Prescriptions Disp Refills busPIRone (BUSPAR) 15 mg tablet 90 tablet 0 Sig: Take 1 tablet by mouth three times a day. Order(s) pended. Please advise. Evangelina Baltazar MA, BUSINESS ANALYTICS SPECIALIST documented in this encounter [facility] 05-25-2023 Miscellaneous Notes Type of letter/form/fax request - orders Form received from [facility] Placed on MD desk () for completion. Completed form needs to be faxed to [phone]. Route to [place] when form completed for processing documented in this encounter [facility] 05-25-2023 Miscellaneous Notes Request completed and faxed to [phone] with confirmation of receipt. Placed on Whit TRIANA desk for filing Done. Type of letter/form/fax request - Home Health Care Orders Form received from [facility] on 05/18/23 floor and placed on desk () for completion. Completed form needs to be faxed to [phone]. Route to [place] when form completed for processing documented in this encounter [facility] 05-20-2023 History of Presen t illness Narrative VIRTUAL VISIT PROGRESS NOTE This is a virtual visit using [employer] Video Visit. It required patient-provider interaction for the medical decision making as documented below. I have communicated my name and active licensure. The patient's identity and physical location were verified at the time of this visit. Either the patient or their legal personnel representative has been informed of the risks [...] Herminia Case MD documented in this encounter [facility] 05-19-2023 Miscellaneous Notes Home care Certification Form 485 received from 05/18/23. For cert dates 05/11/23 to 07/09/23 that were signed on 05/18/23. Recertification Patient's home health 485 form / care plan for stated certification period reviewed and signed. Relevant medical records were reviewed. No changes were indicated documented in this encounter [facility] 05-18-2023 Miscellaneous Notes Request completed and faxed. Done. Type of letter/form/fax request - Home Health Care Orders Form received from [facility] on floor and placed on MD desk () for completion. Completed form needs to be faxed to [phone]. Route to [place] when form completed for processing documented in this encounter [facility] 05-09-2023 Miscellaneous Notes Request completed and faxed. Type of letter/form/fax request - Home Health Care Orders Form received from [facility] on 05/06/23 floor and placed on MD desk () for completion. Completed form needs to be faxed to [phone]. Route to [place] when form completed for processing documented in this encounter [facility] 05-02-2023 History of Presen t illness Narrative Patient presents with: Follow Up HPI: Gonzalo Deluca is a 67 year old female who presents to the office today for follow up. Anxiety - on paxil, switched from cymbalta to paxil. Chronic pain Left hip fracture - 10/2022 Compression fracture 01/2023 Went to rehab , then home right before himrod Back home currently, home nursing PT and [...] Devices, Implants and Grafts, Initial Encounter ([facility]) Pna (Pneumonia) Right Arm Weakness Poor [...] due on 03/21/2023 documented in this encounter [facility] 05-02-2023 Instructions Whit Shay LPN - 05/02/2023 2:26 PM EST [facility] LAB TEST INFORMATION [facility] BUILDING LAB HOURS: Lab is open: 7:30am to 5:00pm - , 7:30am to 4:00pm on Tue and 8am -12pm on Tue. The lab is located in [facility] on the first floor. There is a registration window at the lab, available 7 am to 3 pm Tuesday - Tuesday. If registration is unavailable at the lab, you may register at the patient registration office near the front [facility]. SCHEDULING A LAB APPOINTMENT: Laboratory appointments are recommended.Walk ins are still accepted. Call [phone] or schedule via [employer] scheduling ticket. ROUTINE LAB ORDERS 60 days [...] REFILL REQUESTS Request prescription refills through your [employer] account or contact your Pharmacy. My Chart Schedule My Appointment enables you to view your established primary care provider's open schedule and book an appointment online in real-time. This feature is available in internal medicine, family medicine, or pediatrics at any of our [facility] locations and main campus. documented in this encounter [facility] 04-29-2023 Miscellaneous Notes Spoke to Amanda who states she has been seeing patient for a few months for palliative care. Discharged from facility about a month ago Fall and Hip fx Fall with femur fx On continuous O2 3.5L - COPD Clonazepam not reordered when she left facility - provider requesting OV Walking with walker [facility] home health care nurse also seeing pt. OV scheduled Tuesday Gonzalo is a patient of Herminia Case MD today NADEEM Patel from [facility] is calling to speak to the nurse to review medications. She has questions related to her anxiety and respiratory status. She stated it was not urgent but needs to speak to the nurse/provider today. Patient has been identified by name and birthdate. Closing statement: Symptom Call: Thank you for calling [facility], your call is very important. A nurse will call in approximately 2-4 hours during business hours. If this is an emergency, please contact 911. Tiara Jay documented in this encounter [facility] 04-27-2023 Miscellaneous Notes Please review and advise documented in this encounter [facility] 04-27-2023 Telephone encounter Note Patient cancelled 04-27 appointment via [employer] with the following: Reason for Cancellation: Patient: Lack of Transportation" LVM to r/s [facility] 04-27-2023 Miscellaneous Notes Patient cancelled 04-27 appointment via [employer] with the following: Reason for Cancellation: Patient: Lack of Transportation" LVM to r/s Patient cancelled 04-22 appointment via [employer] stating: Reason for Cancellation: Patient: Schedule Conflict" LVM for patient to call back and get r/s documented in this encounter [facility] 04-21-2023 Telephone encounter Note Patient cancelled 04-22 appointment via [employer] stating: Reason for Cancellation: Patient: Schedule Conflict" LVM for patient to call back and get r/s [facility] 04-21-2023 Miscellaneous Notes Request completed and faxed. Type of letter/form/fax request - Home Health Care Orders Form received from [facility] on 04/17/23 floor and placed on MD desk () for completion. Completed form needs to be faxed to [phone]. Route to [place] when form completed for processing documented in this encounter [facility] 03-11-2023 History of Past i llness Narrative Problem Noted Date Diagnosed Date Resolved Date Chronic pain syndrome 03/11/20232022 Moderate malnutrition 01/22/20232022 COPD (chronic obstructive pu lmonary disease) with acute bronchitis (HCC) 02/02/2021 03/09/2023 Obesity, Class I, BMI 30-34.9 12/07/2018 03/11/2023 documented as of this encounter (statuses as of 04/22/2023) [facility] History of Past illness Narrative* Problem Noted Date Diagnosed Date Resolved Date Chronic pain syndrome 03/11/20232022 Moderate malnutrition 01/22/20232022 COPD (chronic obstructive pu lmonary disease) with acute bronchitis (HCC) 02/02/2021 03/09/2023 Obesity, Class I, BMI 30-34.9 12/07/2018 03/11/2023 documented as of this encounter (statuses as of 04/28/2023) [facility] History of Past illness Narrative* Problem Noted Date Diagnosed Date Resolved Date Chronic pain syndrome 03/11/20232022 Moderate malnutrition 01/22/20232022 COPD (chronic obstructive pu lmonary disease) with acute bronchitis (HCC) 02/02/2021 03/09/2023 Obesity, Class I, BMI 30-34.9 12/07/2018 03/11/2023 documented as of this encounter (statuses as of 05/03/2023) [facility] History of Past illness Narrative* Problem Noted Date Diagnosed Date Resolved Date Chronic pain syndrome 03/11/20232022 Moderate malnutrition 01/22/20232022 COPD (chronic obstructive pu lmonary disease) with acute bronchitis (HCC) 02/02/2021 03/09/2023 Obesity, Class I, BMI 30-34.9 12/07/2018 03/11/2023 documented as of this encounter (statuses as of 05/09/2023) [facility] History of Past illness Narrative* Problem Noted Date Diagnosed Date Resolved Date Chronic pain syndrome 03/11/20232022 Moderate malnutrition 01/22/20232022 COPD (chronic obstructive pu lmonary disease) with acute bronchitis (HCC) 02/02/2021 03/09/2023 Obesity, Class I, BMI 30-34.9 12/07/2018 03/11/2023 documented as of this encounter (statuses as of 05/18/2023) [facility] History of Past illness Narrative* Problem Noted Date Diagnosed Date Resolved Date Chronic pain syndrome 03/11/20232022 Moderate malnutrition 01/22/20232022 COPD (chronic obstructive pu lmonary disease) with acute bronchitis (HCC) 02/02/2021 03/09/2023 Malignant neoplasm of exocervix 11/07/2019 05/20/2023 Obesity, Class I, BMI 30-34.9 12/07/2018 03/11/2023 documented as of this encounter (statuses as of 05/20/2023) [facility] History of Past illness Narrative* Problem Noted Date Diagnosed Date Resolved Date Chronic pain syndrome 03/11/20232022 Moderate malnutrition 01/22/20232022 COPD (chronic obstructive pu lmonary disease) with acute bronchitis (HCC) 02/02/2021 03/09/2023 Malignant neoplasm of exocervix 11/07/2019 05/20/2023 Obesity, Class I, BMI 30-34.9 12/07/2018 03/11/2023 documented as of this encounter (statuses as of 05/21/2023) [facility] History of Past illness Narrative* Problem Noted Date Diagnosed Date Resolved Date Chronic pain syndrome 03/11/20232022 Moderate malnutrition 01/22/20232022 COPD (chronic obstructive pu lmonary disease) with acute bronchitis (HCC) 02/02/2021 03/09/2023 Malignant neoplasm of exocervix 11/07/2019 05/20/2023 Obesity, Class I, BMI 30-34.9 12/07/2018 03/11/2023 documented as of this encounter (statuses as of 05/24/2023) [facility] History of Past illness Narrative* Problem Noted Date Diagnosed Date Resolved Date Chronic pain syndrome 03/11/20232022 Moderate malnutrition 01/22/20232022 COPD (chronic obstructive pu lmonary disease) with acute bronchitis (HCC) 02/02/2021 03/09/2023 Malignant neoplasm of exocervix 11/07/2019 05/20/2023 Obesity, Class I, BMI 30-34.9 12/07/2018 03/11/2023 documented as of this encounter (statuses as of 05/26/2023) [facility] History of Past illness Narrative* Problem Noted Date Diagnosed Date Resolved Date Chronic pain syndrome 03/11/20232022 Moderate malnutrition 01/22/20232022 COPD (chronic obstructive pu lmonary disease) with acute bronchitis (HCC) 02/02/2021 03/09/2023 Malignant neoplasm of exocervix 11/07/2019 05/20/2023 Obesity, Class I, BMI 30-34.9 12/07/2018 03/11/2023 documented as of this encounter (statuses as of 05/26/2023) [facility] History of Past illness Narrative* Problem Noted Date Diagnosed Date Resolved Date Chronic pain syndrome 03/11/20232022 Moderate malnutrition 01/22/20232022 COPD (chronic obstructive pu lmonary disease) with acute bronchitis (HCC) 02/02/2021 03/09/2023 Malignant neoplasm of exocervix 11/07/2019 05/20/2023 Obesity, Class I, BMI 30-34.9 12/07/2018 03/11/2023 documented as of this encounter (statuses as of 05/27/2023) [facility] History of Past illness Narrative* Problem Noted Date Diagnosed Date Resolved Date Chronic pain syndrome 03/11/20232022 Moderate malnutrition 01/22/20232022 COPD (chronic obstructive pu lmonary disease) with acute bronchitis (HCC) 02/02/2021 03/09/2023 Malignant neoplasm of exocervix 11/07/2019 05/20/2023 Obesity, Class I, BMI 30-34.9 12/07/2018 03/11/2023 documented as of this encounter (statuses as of 05/27/2023) [facility] History of Past illness Narrative* Problem Noted Date Diagnosed Date Resolved Date Chronic pain syndrome 03/11/20232022 Moderate malnutrition 01/22/20232022 COPD (chronic obstructive pu lmonary disease) with acute bronchitis (HCC) 02/02/2021 03/09/2023 Malignant neoplasm of exocervix 11/07/2019 05/20/2023 Obesity, Class I, BMI 30-34.9 12/07/2018 03/11/2023 documented as of this encounter (statuses as of 06/11/2023) [facility] History of Past illness Narrative* Problem Noted Date Diagnosed Date Resolved Date Chronic pain syndrome 03/11/20232022 Moderate malnutrition 01/22/20232022 COPD (chronic obstructive pu lmonary disease) with acute bronchitis (HCC) 02/02/2021 03/09/2023 Malignant neoplasm of exocervix 11/07/2019 05/20/2023 Obesity, Class I, BMI 30-34.9 12/07/2018 03/11/2023 documented as of this encounter (statuses as of 06/24/2023) [facility] History of Past illness Narrative* Problem Noted Date Diagnosed Date Resolved Date Chronic pain syndrome 03/11/20232022 Moderate malnutrition 01/22/20232022 COPD (chronic obstructive pu lmonary disease) with acute bronchitis (HCC) 02/02/2021 03/09/2023 Malignant neoplasm of exocervix 11/07/2019 3 05/20/2023 Obesity, Class I, BMI 30-34.9 12/07/2018 03/11/2023 documented as of this encounter (statuses as of 06/27/2023) [facility] History of Past illness Narrative* Problem Noted Date Diagnosed Date Resolved Date Chronic pain syndrome 03/11/20232022 Moderate malnutrition 01/22/20232022 COPD (chronic obstructive pu lmonary disease) with acute bronchitis (HCC) 02/02/2021 03/09/2023 Malignant neoplasm of exocervix 11/07/2019 05/20/2023 Obesity, Class I, BMI 30-34.9 12/07/2018 03/11/2023 documented as of this encounter (statuses as of 06/27/2023) [facility] History of Past illness Narrative* Problem Noted Date Diagnosed Date Resolved Date Chronic pain syndrome 03/11/20232022 Moderate malnutrition 01/22/20232022 COPD (chronic obstructive pu lmonary disease) with acute bronchitis (HCC) 02/02/2021 03/09/2023 Malignant neoplasm of exocervix 11/07/2019 05/20/2023 Obesity, Class I, BMI 30-34.9 12/07/2018 03/11/2023 documented as of this encounter (statuses as of 06/30/2023) [facility]12-[facility] History of Past illness Narrative* Problem Noted Date Diagnosed Date Resolved Date Chronic pain syndrome 03/11/20232022 Moderate malnutrition 01/22/20232022 COPD (chronic obstructive pu lmonary disease) with acute bronchitis (HCC) 02/02/2021 03/09/2023 Malignant neoplasm of exocervix 11/07/2019 05/20/2023 Obesity, Class I, BMI 30-34.9 12/07/2018 03/11/2023 documented as of this encounter (statuses as of 07/05/2023) [facility]-20[facility] History of Past illness Narrative* Problem Noted Date Diagnosed Date Resolved Date Chronic pain syndrome 03/11/20232022 Moderate malnutrition 01/22/20232022 COPD (chronic obstructive pu lmonary disease) with acute bronchitis (HCC) 02/02/2021 03/09/2023 Malignant neoplasm of exocervix 11/07/2019 05/20/2023 Obesity, Class I, BMI 30-34.9 12/07/2018 03/11/2023 documented as of this encounter (statuses as of 07/05/2023) [facility] History of Past illness Narrative* Problem Noted Date Diagnosed Date Resolved Date Chronic pain syndrome 03/11/20232022 Moderate malnutrition 01/22/20232022 COPD (chronic obstructive pu lmonary disease) with acute bronchitis (HCC) 02/02/2021 03/09/2023 Malignant neoplasm of exocervix 11/07/2019 05/20/2023 Obesity, Class I, BMI 30-34.9 12/07/2018 03/11/2023 documented as of this encounter (statuses as of 07/08/2023) [facility]12-19-2023 Miscellaneous Notes* Telephone Encounter - Maria [...] Maria Alejandra Reno MA [facility] Miscellaneous Notes* Care Coordination - Unknown Case Management - 02/18/2023 4:02 PM EST Patient Choice Patient Name: GONZALO DELUCA Date of : 1955 All Providers Sent Referral Name: [facility] Phone: [phone] Address: [address] [place] [id number] * Care Coordination - SATURNINO Garcia - 02/18/2023 2:19 PM EST S/W, follow up Patient discharged to [facility]. Transport set via [facility] at 430p. glass vial bending conveyor feeder provided with report number. I did visit patient in room to notify of transport at 430p. Patient noted she will inform her daughter. * Care Coordination - Nidia Barahona - 02/18/2023 1:34 PM EST Discharge med list transmitted to [facility] via Careport per TCC request. 7000 was entered into [employer] for the SNF- Facility is aware. * Care Coordination - SATURNINO Garcia - 02/16/2023 1:48 PM EST S/W, transport Transport sheet placed in patient paper chart for [facility] SNF. * Care Coordination - Jordana Lowe RN - 02/16/2023 11:18 AM EST Images from the original note were not included. Care Management Progress Note Remains in HICU due to lumbar fracture. Bone scan planned for 02/17. Ortho following. [facility] able to accept pt. BUSINESS ANALYTICS SPECIALIST tasked to initiate insurance auth. Await insurance approval. Insurance approval received. Attending, ortho, RN & DINING ROOM MAID notified. Pt to have bone scan tomorrowas [...] 02/15/2023 3:09 PM EST Referral placed to [facility] via Careport per TCC request. Await review and response regarding ability to accept. TCC notified. * Care Coordination - Ping Lazo RN - 02/15/2023 2:44 PM EST Care Managment Initial Assessment Date: 02/15/2023 Patient Name: Gonzalo Deluca : 1955 Patient Information Source of Information: Patient Cognition/Language: WFL - Within Functional Limits Permission given to speak with patient personnel representative/caregiver as indicated: Yes (Karishmabryanna Deluca dtr [phone]) Confirmation of Payer with patient/family: Yes Payer Name: [facility] Medicare : No Confirmation of Primary [...] SNF Discharge Planning Actions: Continue to follow, Care Home Facility referral indicated [place]: [place] discussed, Choice list provided (emailed to [email or web address]) Patient's Choice Rights and [employer] and Collaborative Relationships Disclosed as Indicated for Post-Acute Care: Yes Interdisciplinary Team Engagement: PT/OT Social Work Referral for: Additional Information: Patient admitted to [facility] for treatment of of Lumbar compression fracture. PT/OT recommends SNF. Spoke with patient over the phone. Explained role. Lives w/ daughter in two story home. Independentwith adls. Daughter and Son drives. +PCP, +RX cov, +DME, home oxygen. Discussed SNF. Emailed list to [email or web address]. She did inform me she was at [facility] and would be agreeable to go back there. BUSINESS ANALYTICS SPECIALIST tasked to make referral to [facility]. Did explained will need to confirm bedavailability and obtain insurance authorization. She demonstrates understanding. DCP: SNF, referral to [facility]. Other choices pending. Ping Lazo RN * Home Care - Deanna Romero LPN - 02/14/2023 8:50 AM EST Patient is currently active with [facility]. The patients current certification period will on 03/28/23. The patient is currently receiving PT services through the agency. [employer] to continue to follow. documented in this [facility]12-01-2023 Note* Care Coordination - Unknown Case Management - 02/18/2023 4:02 PM EST Patient Choice Patient Name: GONZALO DELUCA Date of : 1955 All Providers Sent [facility]erral [facility]: [facility] Phone: [phone] Address: [address] [place] [address] [place] [id number] Note* Care Coordination - Unknown Case Management - 02/18/2023 4:02 PM EST Patient Choice Patient Name: GONZALO DELUCA Date of : 1955 All Providers Sent Referral Name: [facility] Phone: [phone] Address: [address] [place] [address] [place] [id number] Note* Care Coordination - SATURNINO Garcia - 02/18/2023 2:19 PM EST S/W, follow up Patient discharged to [facility]. Transport set via [facility] at 430p. glass vial bending conveyor feeder provided with report number. I did visit patient in room to notify of transport at 430p. Patient noted she will inform her daughter. [place] [id number] Note* Care Coordination - SATURNINO Garcia - 02/18/2023 2:19 PM EST S/W, follow up Patient discharged to [facility]. Transport set via [facility] at 430p. glass vial bending conveyor feeder provided with report number. I did visit patient in room to notify of transport at 430p. Patient noted she will inform her daughter. [place] [id number] Note* Care Coordination - Nidia Barahona - 02/18/2023 1:34 PM EST Discharge med list transmitted to [facility] via Careport per TCC request. 7000 was entered into [employer] for the [facility]- [facility] aware. [id number] [facility]* Care Coordination - Nidia Barahona - 02/18/2023 1:34 PM EST Discharge med list transmitted to [facility] via Careport per TCC request. 7000 was entered into [employer] for the [facility]- Facility is aware. [id number] Hospital Discharge instructions* Discharge Instr - Activity* [...] Primary Emergency Contact: Karishma Deluca Address: [address] [place] [address] Mobile Relation: Daughter Secondary Emergency Contact: [...] (135 lb) Mental Status: {SHAMA Patient Mental Status:21454} IV Access: SHAMA IV Access: None Nursing Mobility/ADLs: Walking Minimal assistance Transfer Minimal assistance Bathing Minimal assistance Dressing Minimal assistance Toileting Minimal assistance Feeding Independent Hide Trimmer Independent Med Delivery no Wound Care Documentation [...] Assessment Score: @READMISSIONRISKDETAILS@ Discharging to Facility/ Agency [facility] Address: [address] [place] [address] Dialysis Facility (if applicable) Name: Address: Dialysis Schedule: Phone: Fax: [employer] Manager[employer] Contact Printer signature: ICIAN SECTION Prognosis: fair Condition at Discharge: stable Rehab Potential (if transferring to Rehab): good Recommended Labs or Other Treatments After Discharge: cbc and Bmp in 3 days Physician Certification: I certify the above information and transfer of Gonzalo Deluca is necessary for the continuing treatment of the diagnosis listed and that she requires care home facility for less than 30 days. Update Admission H&P: No change in H&P PHYSICIAN SIGNATURE: * Additional Instructions* Earlene Echavarria MD - 02/18/2023 1:11 PM EST BONe scan with compression fracture, and brace given, also shows rib fractures. Follow up with Dr. Frank CBC and BMP in 3 days documented in this [facility]12-01-2023 History of Present illness Narrative* Yesenia Salas RCP - 02/18/2023 11:45 AM EST [facility] Respiratory Care Department Progress Note As part [...] from the original note were not included. [phone]: Please page me ([phone]) for patient care issues. [phone]: Please page [facility] Hospitalist for any issues. Subjective: Admit Date: 02/13/2023 PCP: HERMINIA CASE MD Room#: 232-08/232-08 Norma Deluca is a 67 y.o. female who presents with Lumbar compression fracture, closed, initial encounter ([facility]) Interval History: Claims that back [...] was a tentative plan of discharge to care home facility today but discharge was held [...] Primary Emergency Contact: Karishma Deluca Address: [address] [place] [address] [place] [address] [facility] Mobile Relation: Daughter Secondary Emergency Contact: Jace Deluca Mobile Relation: Son Advance Directive: Full Code Discharge planning: TBD Earlene Echavarria MD Division of Hospitalist Medicine Inpatient Medical Services/[facility] * Oseas Lima, PT - 02/17/2023 11:39 AM EST Images from the original note were not included. PHYSICAL THERAPY [facility] Treatment Note Name/MRN: Gonzalo Deluca ([id number]) Date of : 1955 Age: 67 y.o. [...] Mobility Raw Score (No Stairs) : 15 [facility] Goals Patient Stated Goal: Patient states [...] other than deg changes. LSO ordered from [facility] Can be discharged when medically [...] original note were not included. OCCUPATIONAL THERAPY [facility] Treatment Note Name/MRN: Gonzalo Deluca ([id number]) Date of : 1955 Age: 67 y.o. [...] from the original note were not included. [phone]: Please page me ([phone]) for patient care issues. [phone]: Please page [facility] Hospitalist for any issues. Subjective: [...] , waiting for brace and SNF certification [facility] [] Low, [x] Moderate,[] High Patient's risk as above Total time spent (which include face to face and non face to face encounters) : minutes Toxic drug monitoring/narrow therapeutic index drug monitoring : # Drug name : Lovenox # Route administered : Subcutaneous # Method of monitoring : Daily Extended Emergency Contact Information Primary Emergency Contact: Karishma Deluca Address: [address] [place] [address] [place] [address] [facility] Mobile Relation: Daughter Secondary Emergency Contact: Jace Deluca Mobile Relation: Son Advance Directive: Full Code Discharge planning: TBD Earlene Echavarria MD Division of Hospitalist Medicine Inpatient Medical Services/[facility] * Betsey Gresham MD - 02/16/2023 7:51 [...] from the original note were not included. [phone]: Please page me ([phone]) for patient care issues. [phone]: Please page [facility] Hospitalist for any issues. Subjective: Admit Date: 02/13/2023 PCP: HERMINIA CASE MD Room#: 232-08/232-08 Norma Deluca is a 67 y.o. female who presents with Lumbar compression fracture, closed, initial encounter ([facility]) Interval History: Claims that back [...] Primary Emergency Contact: Karishma Deluca Address: [address] [place] [address] [place] [id number] [facility] Mobile Relation: Daughter Secondary Emergency Contact: Jace Deluca Mobile Relation: Son Advance Directive: Full Code Discharge planning: TBD Earlene Echavarria MD Division of Hospitalist Medicine Inpatient Medical Services/[facility] * Marian Mendosa, PT - 02/15/2023 11:13 AM EST Images from the original note were not included. PHYSICAL THERAPY [facility] Treatment Note Name/MRN: Gonzalo Deluca ([id number]) Date of : 1955 Age: 67 y.o. [...] from the original note were not included. [phone]: Please page me ([phone]) for patient care issues. [phone]: Please page [facility] Hospitalist for any issues. Subjective: Admit Date: 02/13/2023 PCP: HERMINIA CASE MD Room#: 232-08/232-08 Norma Deluca is a 67 y.o. female who presents with Lumbar compression fracture, closed, initial encounter ([facility]) Interval History: No overnight issues. [...] since patient refuses MRI Physical therapy recommending care home facility and possible discharge planning to [...] Primary Emergency Contact: Karishma Deluca Address: [address] [place] [address] Dr. [place], [facility] Mobile Relation: Daughter Secondary Emergency Contact: Jace Deluca Mobile Relation: Son Advance Directive: Full Code Discharge planning: TBD Earlene Echavarria MD Division of Hospitalist Medicine Inpatient Medical Services/[facility] * Catalina Rojo OT - 02/14/2023 10:11 AM EST Images from the original note were not included. OCCUPATIONAL THERAPY [facility] Initial Evaluation Name/MRN: Gonzalo Deluca ([id number]) Evaluation Date: 02/14/2023 Date of : 1955 [...] Allergic rhinitis Arthritis Asthma Bronchitis Cancer (CMS/HCC) ([facility]) skin Cervical cancer (CMS/HCC) ([facility]) Chest pain COPD (chronic obstructive pulmonary disease) ([facility]) USE OXYGEN 3 L AT NIGHT DDD (degenerative disc disease), cervical Defect, retina, with detachment right DJD (degenerative joint disease), lumbar Emphysema lung ([facility]) Former smoker Hematuria SCHEDULED FOR THE PROCEDURE /SURGERY ON 02/11/2017 Hypokalemia Lung nodules Osteoporosis Palpitations Pneumonia Recurrent major depression ([facility]) Sciatica Thoracic compression fracture ([facility]) Vitamin D deficiency Past Surgical [...] Noted Lumbar compression fracture, closed, initial encounter ([facility]) 02/13/2023 Nondisplaced fracture of neck of left femur ([facility]) 11/06/2022 Other specified complication of vascular prosthetic devices, implants and grafts, initial encounter([facility]) 08/06/2021 Acute exacerbation of chronic obstructive pulmonary disease ([facility]) 04/12/2018 Poor venous access 12/19/2019 H/O: CVA (cerebrovascular accident) 12/14/2019 Malignant neoplasm of exocervix ([facility]) 11/07/2019 S/P hysterectomy 11/07/2019 PNA (pneumonia) 08/02/2019 Leukocytosis 04/13/2018 Moderate malnutrition ([facility]) ([facility]) 04/13/2018 Shortness of breath 04/13/2018 DDD (degenerative disc disease), cervical 04/12/2018 Recurrent major depression ([facility]) 04/12/2018 Chronic back pain 04/10/2017 COPD (chronic obstructive pulmonary disease) ([facility]) 04/10/2017 Pulmonary nodule 04/10/2017 Sciatica [...] Responsibilities: Independent Receives Help From: Family Active Fountain Dispenser: No Prior Level of Function ADL Assistance: [...] Daily Activity Raw Score: 19 ADL Inpatient [facility] G-Code Modifier: CK Plan Pt would benefit [...] of Care supervision is transferred to a [facility] Therapy Services Occupational Therapist. Goals and/or treatment plan was established in collaboration with patient/family/other representatives. * Jennifer Esparza, PT - 02/14/2023 8:36 AM EST Images from the original note were not included. PHYSICAL THERAPY [facility] Initial Evaluation Name/MRN: Gonzalo Deluca ([id number]) Evaluation Date: 02/14/2023 Date of : 1955 Admission Date: 02/13/2023 6:59 PM Age: 67 y.o. Room[facility]Bed: [facility] A Discharge Recommendation: SNF and Continue [...] Allergic rhinitis Arthritis Asthma Bronchitis Cancer (CMS/HCC) ([facility]) skin Cervical cancer (CMS/HCC) ([facility]) Chest pain COPD (chronic obstructive pulmonary disease) ([facility]) USE OXYGEN 3 L AT NIGHT DDD (degenerative disc disease), cervical Defect, retina, with detachment right DJD (degenerative joint disease), lumbar Emphysema lung ([facility]) Former smoker Hematuria SCHEDULED FOR THE PROCEDURE /SURGERY ON 02/11/2017 Hypokalemia Lung nodules Osteoporosis Palpitations Pneumonia Recurrent major depression ([facility]) Sciatica Thoracic compression fracture ([facility]) Vitamin D deficiency Past Surgical History: Past Surgical History: Procedure Laterality Date CYSTOSCOPY 01/12/2017 OFFICE PROCEDURE CYSTOSCOPY 02/11/2017 C&P bladder biopsy EYE SURGERY detached retina 1994 HYSTERECTOMY 11/06/2019 ABDOMINAL RADICAL HYSTERECTOMY WITH BSO AND PELVIC LYMPH; DR. ZIYAD MENENDEZ [facility] OTHER SURGICAL HISTORY Left 12/19/2019 Med Port POWER Regular Size OTHER SURGICAL HISTORY Left 11/07/2022 Percutaneous skeltal fixation femoral fracture TUBAL LIGATION 1992 Admission Diagnosis: Patient Active Problem List Diagnosis Date Noted Lumbar compression fracture, closed, initial encounter ([facility]) 02/13/2023 Nondisplaced fracture of neck of left femur ([facility]) 11/06/2022 Other specified complication of vascular prosthetic devices, implants and grafts, initial encounter([facility]) 08/06/2021 Acute exacerbation of chronic obstructive pulmonary disease ([facility]) 04/12/2018 Poor venous access 12/19/2019 H/O: CVA (cerebrovascular accident) 12/14/2019 Malignant neoplasm of exocervix ([facility]) 11/07/2019 S/P hysterectomy 11/07/2019 PNA (pneumonia) 08/02/2019 Leukocytosis 04/13/2018 Moderate malnutrition ([facility]) ([facility]) 04/13/2018 Shortness of breath 04/13/2018 [...] Responsibilities: Independent Receives Help From: Family Active Fountain Dispenser: No Prior Level of Function ADL Assistance: [...] of Care supervision is transferred to a [facility] Therapy Services Physical Therapist. Goals and/or treatment plan was established in collaboration with patient/family/other representatives. documented in this [facility]11-30-2023 Nurse Note* ARMIN DE OLIVEIRA - 02/17/2023 6:09 PM EST Order for brace faxed to [employer] along with face sheet by Secretary Diaz [place] [id number] Nurse Note* ARMIN DE OLIVEIRA - 02/17/2023 6:09 PM EST Order for brace faxed to [employer] along with face sheet by Secretary Diaz documented in this [place] [id number] Note* Care Coordination - SATURNINO Garcia - 02/16/2023 1:48 PM EST S/W, transport Transport sheet placed in patient paper chart for [facility] SNF. [id number] Note* Care Coordination - SATURNINO Garcia - 02/16/2023 1:48 PM EST S/W, transport Transport sheet placed in patient paper chart for [facility] SNF. [facility]11-29-2023 Note* Care Coordination - Jordana Lowe RN - 02/16/2023 11:18 AM EST Images from the original note were not included. Care Management Progress Note Remains in HICU due to lumbar fracture. Bone scan planned for 02/17. Ortho following. [facility] able to accept pt. BUSINESS ANALYTICS SPECIALIST tasked to initiate insurance auth. Await insurance approval. Insurance approval received. Attending, faustina, RN & DINING ROOM MAID notified. Pt to have bone scan tomorrowas [...] planned for 02/17. Ortho following. [facility] able to accept pt. BUSINESS ANALYTICS SPECIALIST tasked to initiate insurance auth. Await insurance approval. Insurance approval received. Attending, ortho, RN & DINING ROOM MAID notified. Pt to have bone scan tomorrowas [...] GMLOS: No GMLOS Documented [facility]11-28-2023 Note* Care Coordination - Nidia Barahona - 02/15/2023 3:09 PM EST Referral placed to [facility] via Careport per TCC request. Await review and response regarding ability to accept. TCC notified. [facility]11-28-2023 Note* Care Coordination - Nidia Barahona - 02/15/2023 3:09 PM EST Referral placed to SNF- [facility] via Careport per TCC request. Await review and response regarding ability to accept. TCC notified. [id number] [facility]* Care Coordination - Ping Lazo RN - 02/15/2023 2:44 PM EST Care Managment Initial Assessment Date: 02/15/2023 Patient Name: Gonzalo Deluca : 1955 Patient Information Source of Information: Patient Cognition/Language: WFL - Within Functional Limits Permission given to speak with patient personnel representative/caregiver as indicated: Yes (Karishma Deluca dtr [phone]) Confirmation of Payer with patient/family: Yes Payer [...] SNF Discharge Planning Actions: Continue to follow, Care Home Facility referral indicated [place] [facility]: [place] discussed, Choice list provided (emailed to ) Patient's Choice Rights and [employer] and Collaborative Relationships Disclosed as Indicated for Post-Acute Care: Yes Interdisciplinary Team Engagement: PT/OT Social Work Referral for: Additional Information: Patient admitted to [facility] for treatment of of Lumbar compression fracture. PT/OT recommends SNF. Spoke with patient over the phone. Explained role. Lives w/ daughter in two story home. Independentwith adls. Daughter and Son drives. +PCP, +RX cov, +DME, home oxygen. Discussed SNF. Emailed list to [email or web address]. She did inform me she was at [facility] and would be agreeable to go back there. BUSINESS ANALYTICS SPECIALIST tasked to make referral to [facility]. Did explained will need to confirm bedavailability and obtain insurance authorization. She demonstrates understanding. DCP: SNF, referral to [facility]. Other choices pending. Ping Lazo RN [facility] [id number] Note* Care Coordination - Ping Lazo RN - 02/15/2023 2:44 PM EST Care Managment Initial Assessment Date: 02/15/2023 Patient Name: Gonzalo Deluca : 1955 Patient Information Source of Information: Patient Cognition/Language: WFL - Within Functional Limits Permission given to speak with patient personnel representative/caregiver as indicated: Yes (Karishma Deluca dtr [phone]) Confirmation of Payer with patient/family: Yes Payer Name: [facility] Medicare [place]: No Confirmation of Primary Care Physician: Confirmed [...] SNF Discharge Planning Actions: Continue to follow, Care Home Facility referral indicated [place] choice: [place] of choice discussed, Choice list provided (emailed to [email or web address]) Patient's Choice Rights and [employer] and Collaborative Relationships Disclosed as Indicated for Post-Acute Care: Yes Interdisciplinary Team Engagement: PT/OT Social Work Referral for: Additional Information: Patient admitted to [facility] for treatment of of Lumbar compression fracture. PT/OT recommends SNF. Spoke with patient over the phone. Explained role. Lives w/ daughter in two story home. Independentwith adls. Daughter and Son drives. +PCP, +RX cov, +DME, home oxygen. Discussed SNF. Emailed list to [email or web address]. She did inform me she was at [facility] and would be agreeable to go back there. BUSINESS ANALYTICS SPECIALIST tasked to make referral to [facility]. Did explained will need to confirm bedavailability and obtain insurance authorization. She demonstrates understanding. DCP: SNF, referral to [facility]. Other choices pending. Ping Lazo RN [id number] Emergency department Note* Joaquina Guevara RN - 02/14/2023 9:20 AM EST Report called to Jameson WHITEHEAD at this time. Joaquina Guevara RN 02/14/23 0920 [place] [id number] Emergency department Note* Joaquina Guevara RN - [...] Allergic rhinitis Arthritis Asthma Bronchitis Cancer (CMS/HCC) ([facility]) skin Cervical cancer (CMS/HCC) ([facility]) Chest pain COPD (chronic obstructive pulmonary disease) ([facility]) USE OXYGEN 3 L AT NIGHT DDD (degenerative disc disease), cervical Defect, retina, with detachment right DJD (degenerative joint disease), lumbar Emphysema lung ([facility]) Former smoker Hematuria SCHEDULED FOR THE PROCEDURE /SURGERY ON 02/11/2017 Hypokalemia Lung nodules Osteoporosis Palpitations Pneumonia Recurrent major depression ([facility]) Sciatica Thoracic compression fracture ([facility]) Vitamin D deficiency SURGICAL HISTORY Past Surgical History: Procedure Laterality Date CYSTOSCOPY 01/12/2017 OFFICE PROCEDURE CYSTOSCOPY 02/11/2017 C&P bladder biopsy EYE SURGERY detached retina 1994 HYSTERECTOMY 11/06/2019 ABDOMINAL RADICAL HYSTERECTOMY WITH BSO AND PELVIC LYMPH; DR. ZIYAD MENENDEZ [facility] OTHER SURGICAL HISTORY Left 12/19/2019 Med [...] are requesting placement back in rehab versus care home facility. They states they are concerned [...] Nancy Salas RN 02/13/232203 documented in this [facility]11-27-2023 Note* Home Care - Deanna Romero LPN - 02/14/2023 8:50 AM EST Patient is currently active with [facility]. The patients current certification period will on 03/28/23. The patient is currently receiving PT services through the agency. [employer] to continue to follow. [facility] [id number] Note* Home Care - Deanna Romero LPN - 02/14/2023 8:50 AM EST Patient is currently active with [facility]. The patients current certification period will on 03/28/23. The patient is currently receiving PT services through the agency. [employer] to continue to follow. [facility] [id number] Emergency department Note* Joaquina Guevara RN - 02/14/2023 8:27 AM EST Attempted Nurse to nurse via telephone at this time, Jameson states they will call back. Joaquina Guevara RN 02/14/23 0828 [facility]11-27-2023 Consult note* Betsey [...] Chest pain COPD (chronic obstructive pulmonary disease) ([facility]) USE OXYGEN 3 L AT NIGHT DDD (degenerative disc disease), cervical Defect, retina, with detachment right DJD (degenerative joint disease), lumbar Emphysema lung ([facility]) Former smoker Hematuria SCHEDULED FOR THE PROCEDURE /SURGERY ON 02/11/2017 Hypokalemia Lung nodules Osteoporosis Palpitations Pneumonia Recurrent major depression (HCC) Sciatica Thoracic compression fracture ([facility]) Vitamin D deficiency Past Surgical [...] Betsey Gresham MD - 02/14/2023 7:49 [facility]): Inpatient consult to orthopaedic surgery-- Inpatient consult to orthopaedic surgery-- Consult performed by: Btesey Gresham MD Consult ordered by: Lauren Serna [...] rhinitis Arthritis Asthma Bronchitis Cancer ([facility]/HCC) ([facility]) skin Cervical cancer (CMS/HCC) ([facility]) Chest pain COPD (chronic obstructive pulmonary disease) ([facility]) USE OXYGEN 3 L AT NIGHT DDD (degenerative disc disease), cervical Defect, retina, with detachment right DJD (degenerative joint disease), lumbar Emphysema lung ([facility]) Former smoker Hematuria SCHEDULED FOR THE PROCEDURE /SURGERY ON 02/11/2017 Hypokalemia Lung nodules Osteoporosis Palpitations Pneumonia Recurrent major depression ([facility]) Sciatica Thoracic compression fracture ([facility]) Vitamin D deficiency Past Surgical [...] will follow with you. documented in this [facility]11-26-2023 History and physical note* Lauren Serna MD - 02/13/2023 11:12 PM EST Images from the original note were not included. History and Physical [facility] Gonzalo Deluca : 1955 AGE 67 y.o. [...] SpO2 98% BMI 22.47 kg/m Pulse Ox: QbN6Eqx: 98 % Min: 98 % Max: 98 [...] QT Interval 395 QTC Interval 473 P Hammond 69 QRS Hammond -35 T Wave Hammond -12 AR Interval 152 Impression Sinus rhythm Inferior infarct, [...] x-ray left shoulder is negative for fracture [facility] orthopedics has seen her in the past seeing her webmaster for the For now I will continue [...] to due risk bleed/procedure 02/13/2023 Gonzalo Deluca [id number] Any scheduled follow up appointments Future Appointments Date Time Provider Department Center 03/09/2023 11:15 AM Freddy Person MD [facility] None 04/22/2023 1:00 PM Sally Rocha APRN - [facility] None Extended Emergency Contact Information Primary Emergency Contact: Karishma Deluca Address: [address] [place] [address] [place] [address] [facility] [employer] Mobile Relation: Daughter Secondary Emergency Contact: Jace Deluca Mobile Relation: Son Portions of this note may be electronically transcribed. Please forward a copy of this H&P to the primary care physician. [facility] Work Phone: [phone]) 313-577311-26-2023 History and physical note* Lauren Serna MD - 02/13/2023 11:12 PM EST Images from the original note were not included. History and Physical [facility] Gonzalo Deluca : 1955 AGE 67 y.o. [...] Allergic rhinitis Arthritis Asthma Bronchitis Cancer (CMS/HCC) ([facility]) skin Cervical cancer (CMS/HCC) ([facility]) Chest pain COPD (chronic obstructive pulmonary disease) ([facility]) USE OXYGEN 3 L AT NIGHT DDD (degenerative disc disease), cervical Defect, retina, with detachment right DJD (degenerative joint disease), lumbar Emphysema lung ([facility]) Former smoker Hematuria SCHEDULED FOR THE PROCEDURE /SURGERY ON 02/11/2017 Hypokalemia Lung nodules Osteoporosis Palpitations Pneumonia Recurrent major depression ([facility]) Sciatica Thoracic compression fracture ([facility]) Vitamin D deficiency She is [...] SpO2 98% BMI 22.47 kg/m Pulse Ox: CpV5Hff: 98 % Min: 98 % Max: 98 [...] QT Interval 395 QTC Interval 473 P Hammond 69 QRS Hammond -35 T Wave Hammond -12 AR Interval 152 Impression Sinus rhythm Inferior infarct, [...] x-ray left shoulder is negative for fracture [facility] orthopedics has seen her in the past seeing her webmaster for the For now I will continue [...] to due risk bleed/procedure 02/13/2023 Gonzalo Deluca [id number] Any scheduled follow up appointments Future Appointments Date Time Provider Department Center 03/09/2023 11:15 AM Freddy Person MD [facility] None 04/22/2023 1:00 PM Sally Rocha APRN - [facility] None Extended Emergency Contact Information Primary Emergency Contact: Karishma Deluca Address: [address] [place] [address] [place] [address] [facility] Mobile Relation: Daughter Secondary Emergency Contact: Jace Deluca Mobile Relation: Son Portions of this note may be electronically transcribed. Please forward a copy of this H&P to the primary care physician. documented in this [facility]11-26-2023 Emergency department Note* Anahi Harvey RN - 02/13/2023 6:59 PM EST Bed: 02 Expected date: Expected time: Means of arrival: Comments: Jean Harvey RN 02/13/23 9153 [id number] Emergency department Note* Nancy Salas RN - 02/13/2023 6:59 PM EST Bed: 16 Expected date: Expected time: Means of arrival: Comments: Room 2 Nancy Salas RN 02/13/232203 [facility]11-26-2023 Emergency department Triage note* VERA Harper - 02/13/2023 6:59 PM EST Complaint of fall today injuring lower back and left shoulder. [place] [id number] Physician Emergency department Note* Lorenzo Orozco MD [...] Allergic rhinitis Arthritis Asthma Bronchitis Cancer (CMS/HCC) ([facility]) skin Cervical cancer (CMS/HCC) ([facility]) Chest pain COPD (chronic obstructive pulmonary disease) ([facility]) USE OXYGEN 3 L AT NIGHT DDD (degenerative disc disease), cervical Defect, retina, with detachment right DJD (degenerative joint disease), lumbar Emphysema lung (HCC) Former smoker Hematuria SCHEDULED FOR THE PROCEDURE /SURGERY ON 02/11/2017 Hypokalemia Lung nodules Osteoporosis Palpitations Pneumonia Recurrent major depression (HCC) Sciatica Thoracic compression fracture ([facility]) Vitamin D deficiency SURGICAL HISTORY [...] are requesting placement back in rehab versus care home facility. They states they are concerned [...] Medicine Provider Lorenzo Orozco MD 02/17/23 0849 [id number] Miscellaneous Notes* Telephone Encounter - Whit Shay LPN - 02/08/2023 9:57 AM EST Request completed and faxed. * Telephone Encounter - Herminia Case MD - 02/08/2023 9:48 AM EST Done. * Telephone Encounter - Whit Shay LPN - 02/07/2023 2:59 PM EST Type of letter/form/fax request - Home Health Care Orders Plan of Care Certification Period- 01/28/23 to 03/28/23 [facility] and placed on MD desk () for completion. Completed form needs to be faxed to [phone]. Route to [place] when form completed for processing documented in [facility]Wayne [facility]11-20-2023 Miscellaneous Notes* Telephone Encounter - Tate Weathers MA - 02/07/2023 2:00 PM EST Last appointment: 01/14/23 Next appointment: 03/11/23 Pharmacy verified in [facility]. Refill(s) requested: Requested Prescriptions Pending Prescriptions Disp Refills QUEtiapine (SEROQUEL) 100 mg tablet [Pharmacy Med Name: QUETIAPINE FUMARATE 100 MG TAB] 180 tablet 1 Sig: TAKE 2 TABLETS BY MOUTH AT BEDTIME NEEDED Order(s) pended. Please advise. Tate Weathers MA, [facility] documented in this encounterWayne Hospital11-14-2023 History of Present illness Narrative* Agustina Romero MA - 02/01/2023 11:01 AM EST POPULATION HEALTH NAVIGATION OUTREACH Action/FYI Called and left a message to call [phone], to discuss health maintenance items that are due. Sent My Chart message. Patient Identified by Name and : NO Outreach Outcome/Action Unable to reach patient: Left message MyChart message sent Did you use a PCP flex slot to schedule this appointment? N/A Reason for Outreach Care Gap or Scheduling/Wellness visits Payer: Payor: [facility] MEDICARE / Plan: [facility] DUAL COMPLETE HMO POS SNP / [...] 01, 2023 11:02 AM documented in this encounterWayne Hospital11-14-2023 Miscellaneous Notes* Telephone Encounter - Whit Shay LPN - 02/01/2023 9:07 AM EST Request completed and faxed. * Telephone Encounter - Whit Shay LPN - 01/31/2023 3:36 PM EST Type of letter/form/fax request - Home Health Care Orders Form received from [facility] on 01/28/23 floor and placed on MD desk () for completion. Completed form needs to be faxed to [phone]. Route to [place] when form completed for processing documented in this encounterWayne Hospital11-09-2023 History of Present illness Narrative* Jo Chen MA - 01/27/2023 12:21 PM EST POPULATION HEALTH NAVIGATION OUTREACH Action/FYI Unable to leave Mychart message sent Mammogram Screening Never done Colorectal Cancer Screening Never done Patient Identified by Name and : NO Outreach Outcome/Action Unable to reach patient: Phone number not valid / voicemail full Mind Palettehart message sent Did you use a PCP flex slot to schedule this appointment? N/A Reason for Outreach Care Gap or Scheduling/Wellness visits Payer: Payor: [facility] MEDICARE / Plan: [facility] DUAL COMPLETE HMO POS SNP / [...] 27, 2023 12:21 PM documented in this encounterWayne Hospital11-06-2023 Miscellaneous Notes* Telephone Encounter - Whit Shay LPN - 01/24/2023 3:12 PM EST Request completed and faxed. * Telephone Encounter - Herminia Case MD - 01/24/2023 3:06 PM EST Done. * Telephone Encounter - Whit Shay LPN - 01/24/2023 2:42 PM EST Type of letter/form/fax request - Home Health Care Orders Form received from [facility] on 01/21/23 floor and placed on MD desk () for completion. Completed form needs to be faxed to [phone]. Route to [place] when form completed for processing documented in this encounterWayne Hospital11-03-2023 Miscellaneous Notes* Telephone Encounter - Rayo Roman Ma - 01/21/2023 1:45 PM EDT Type of letter/form/fax request - Home Health Care Orders Form received from [facility] on 01/21/23 floor and placed on MD desk () for completion. Completed form needs to be faxed to [phone]. Route to [place] when form completed for processing documented in this [facility]10-30-2023 Miscellaneous Notes* Telephone Encounter - Whit Shay LPN - 01/17/2023 6:06 PM EDT Request completed and faxed. * Telephone Encounter - Whit Shay LPN - 01/17/2023 10:35 AM EDT Type of letter/form/fax request - Home Health Care Orders Form received from [facility] on 01/15/23 floor and placed on MD desk () for completion. Completed form needs to be faxed to [phone]. Route to [place] when form completed for processing documented in this [facility]10-27-2023 Instructions* Patient Instructions* Herminia Case MD [...] continue 60 mg duloxetine. documented in this [facility]10-27-2023 History of Present illness Narrative* Herminia [...] Vaccine(1) due on 2022 documented in this encounterWayne Hospital10-20-2023 Miscellaneous Notes* Telephone Encounter - Melva Juárez PA-C - 01/07/2023 3:21 PM EDT Noted. Melva Juárez PA-C * Telephone Encounter - Teressa Macario - 01/07/2023 1:21 PM EDT [facility] with [facility] calling to update that patient cancelled her appointment today becauseshe is not feeling well. Any questions, please call [facility] @ [phone] documented in this encounterWayne Hospital10-18-2023 Miscellaneous Notes* Telephone Encounter - Melva Juárez PA-C - 01/05/2023 5:12 PM EDT Noted. Melva Juárez PA-C * Telephone Encounter - Rayo Roman Ma - 01/05/2023 4:32 PM EDT FYI * Telephone Encounter - Teressa Macario - 01/05/2023 12:17 PM EDT Dianne from [facility] calling today to update that patient missed appointment today because she does not feel well. Patient is asking to hold off therapy until Tuesday. documented in this encounterWayne Hospital10-12-2023 Miscellaneous Notes* Telephone Encounter - Whit Shay LPN - 12/30/2022 11:28 AM EDT Request completed and faxed. * Telephone Encounter - Herminia Case MD - 12/30/2022 11:18 AM EDT Done. * Telephone Encounter - Whit Shay LPN - 12/30/2022 9:28 AM EDT Type of letter/form/fax request - Home Health Care Orders Form received from [facility] on 12/29/22 floor and placed on MD desk () for completion. Completed form needs to be faxed to [phone]. Route to [place] when form completed for processing documented in this encounterWayne Hospital10-11-2023 Miscellaneous Notes* Telephone Encounter - Whit Shay LPN - 12/29/2022 8:43 AM EDT Request completed and faxed. * Telephone Encounter - Whit Shay LPN - 12/28/2022 2:00 PM EDT Type of letter/form/fax request - Home Health Care Orders Form received from [facility] on 12/27/22 floor and placed on MD desk () for completion. Completed form needs to be faxed to [phone]. Route to [place] when form completed for processing documented in this encounterWayne Hospital10-09-2023 Miscellaneous Notes* Telephone Encounter - Whit Shay LPN - 12/27/2022 3:41 PM EDT Request completed and faxed. * Telephone Encounter - Whit Shay LPN - 12/22/2022 8:26 AM EDT Type of letter/form/fax request - Home Health Care Orders Form received from [facility] on 12/21/22 floor and placed on MD desk () for completion. Completed form needs to be faxed to [phone]. Route to [place] when form completed for processing documented in this encounterWayne Hospital09-28-2023 Miscellaneous Notes* Telephone Encounter - Parul Sanderson OCCA - 12/16/2022 2:11 PM EDT Last appointment: 09/15/22 Next appointment: 01/14/23 Pharmacy verified in [facility]. Refill(s) requested: Requested Prescriptions Pending Prescriptions Disp Refills oxyCODONE-acetaminophen (PERCOCET) 5-325 mg tablet 134 tablet 0 Sig: Take 1 tablet by mouth every 4 hours as needed for pain for up to 30 days. Order(s) pended. Please advise,thank you. Parul GOMES December 16, 2022 2:12 PM documented in this encounterWayne Hospital09-23-2023 Miscellaneous Notes* Telephone Encounter - Whit Shay LPN - 12/11/2022 8:37 AM EDT Home care Certification Form [facility]. For cert dates 11/29/22 to 01/27/23 that were signed on 12/07/22. Recertification Patient's home health 485 form / care plan for stated certification period reviewed and signed. Relevant medical records were reviewed. No changes were indicated documented in this encounterWayne Hospital09-22-2023 Miscellaneous Notes* Telephone Encounter - Cayden Acevedo - 12/10/2022 3:31 PM EDT Last appointment: 09.15.2022 Next appointment: 01.14.2023 Pharmacy verified in [facility]. Refill(s) requested: Requested Prescriptions Pending Prescriptions Disp Refills alendronate (FOSAMAX) 70 mg tablet [Pharmacy Med Name: ALENDRONATE SODIUM 70 MG TAB] 12 tablet 3 Sig: TAKE 1 TABLET BY MOUTH ONE TIME A WEEK. Order(s) pended. Please advise. Cayden Acevedo CMA documented in this encounterWayne Hospital09-21-2023 Miscellaneous Notes* Telephone Encounter - Whit Shay LPN - 12/09/2022 2:57 PM EDT Request completed and faxed. * Telephone Encounter - Herminia Case MD - 12/09/2022 2:49 PM EDT Done. * Telephone Encounter - Whit Shay LPN - 12/09/2022 2:16 PM EDT Type of letter/form/fax request - Home Health Care Orders Form received from [facility] on 12/07/22 floor and placed on MD desk () for completion. Completed form needs to be faxed to [phone]. Route to [place] when form completed for processing documented in this encounterWayne Hospital09-21-2023 History of Present illness Narrative* Neil Ennis Silvia - 12/09/2022 10:45 AM EDT Spoke with patient. Patient states that she will complete it and send it in. documented in this encounterWayne Hospital09-19-2023 Miscellaneous Notes* Telephone Encounter - Whit Shay LPN - 12/07/2022 4:19 PM EDT Request completed and faxed. * Telephone Encounter - Herminia Case MD - 12/07/2022 4:01 PM EDT Done. * Telephone Encounter - Whit Shay LPN - 12/07/2022 8:50 AM EDT Type of letter/form/fax request - Home Health Care Orders Form received from [facility] on 12/03/22 floor and placed on desk () for completion. Completed form needs to be faxed to [phone]. Route to [place] when form completed for processing documented in this encounterWayne Hospital09-12-2023 Miscellaneous Notes* Telephone Encounter - Whit Shay LPN - 11/30/2022 9:33 AM EDT Called Leola from [facility] and relayed message below. She verbalized understanding. Whit Shay LPN * Telephone Encounter - Herminia Case MD - 11/29/2022 7:19 PM EDT yes * Telephone Encounter - Jessica Castro - 11/29/2022 4:41 PM EDT Leola Villanueva from [facility] is calling to confirm that Dr. Case will follow patient for home health care. Please call back to [phone] documented in this encounterWayne Hospital09-05-2023 Miscellaneous Notes* Telephone Encounter - Simran Prasad Ma - 11/23/2022 7:49 PM EDT Date of last office visit : 09/15/2022 Date of next office visit : 01/14/2023 Pharmacy verified in [facility]. Refill(s) requested: Requested Prescriptions Pending Prescriptions Disp Refills SPIRIVA RESPIMAT 2.5 mcg/actuation inhaler [Pharmacy Med Name: SPIRIVA RESPIMAT 2.5 MCG INH] 3 Sig: INHALE 2 PUFFS BY MOUTH ONCE DAILY DIRECTED Order(s) pended. Please advise. Simran Prasad Ma, CMA documented in this encounterWayne Hospital09-01-2023 Miscellaneous Notes* Telephone Encounter - Estee [...] advise. Estee Amor LPN documented in this encounterWayne Hospital08-31-2023 Miscellaneous Notes* Telephone Encounter - Madison Ceja - 11/18/2022 1:04 PM EDT Patient scheduled for sooner appointment * Telephone Encounter - Herminia Case MD - 11/18/2022 12:50 PM EDT Needs sooner appt for pain med refills. * Telephone Encounter - Parul Sanderson OCCA - 11/17/2022 12:54 PM EDT Last appointment: 09/15/22 Next appointment: 03/17/23 Pharmacy verified in [facility]. Refill(s) requested: Requested Prescriptions Pending Prescriptions Disp Refills oxyCODONE-acetaminophen (PERCOCET) 5-325 mg tablet 134 tablet 0 Sig: Take 1 tablet by mouth every 4 hours as needed for pain for up to 30 days. Order(s) pended. Please advise,thank you. Parul GOMES November 17, 2022 12:55 PM documented in this encounterWayne Hospital08-28-2023 Miscellaneous Notes* Telephone Encounter - Maria Alejandra Reno MA - 11/15/2022 1:29 PM EDT Pharmacy verified in [facility] Patient has been identified by name and [...] Maria Alejandra Reno MA documented in this encounterWayne Hospital08-21-2023 Note* Care Coordination - SATURNINO Garcia - 11/08/2022 2:29 PM EDT S/W, follow up Patient discharged to [facility]. Transport set via [facility] at 430p. glass vial bending conveyor feeder provided report number. I did visit patient in room to notify. Patient and myself did notify daughter karishma via speaker phone of transport this evening. [facility] [id number] Note* Care Coordination - SATURNINO Garcia - 11/08/2022 2:29 PM EDT S/W, follow up Patient discharged to [facility]. Transport set via [facility] at 430p. glass vial bending conveyor feeder provided report number. I did visit patient in room to notify. Patient and myself did notify daughter karishma via speaker phone of transport this evening. [facility] [id number] Miscellaneous Notes* Care Coordination - SATURNINO Garcia - 11/08/2022 2:29 PM EDT S/W, follow up Patient discharged to [facility]. Transport set via [facility] at 430p. glass vial bending conveyor feeder provided report number. I did visit patient in room to notify. Patient and myself did notify daughter karishma via speaker phone of transport this evening. * Care Coordination - Unknown Case Management - 11/08/2022 1:57 PM EDT Patient Choice Patient Name: GONZALO DELUCA Date of : 1955 All Providers Sent Referral Name: [facility] Phone: [phone] Address: [address] [place] [address] * Care Coordination - Phillip Gurrola RN - 11/08/2022 11:20 AM EDT Tasked BUSINESS ANALYTICS SPECIALIST to submit for auth for [facility]. . * Care Coordination - Phillip Gurrola RN - 11/08/2022 6:59 AM EDT Images from the original note were not included. Care Management Progress Note Awaiting therapy evals and recommendations. Per careport. [facility] is able to accept. Will [...] Isaac LPN - 11/07/2022 4:39 PM EDT Manager Company following case for Discharge Needs. * Care Coordination - Phillip Gurrola RN - 11/07/2022 4:20 PM EDT Care Managment Initial Assessment Date: 11/07/2022 Patient Name: Gonzalo Deluca : 1955 Patient Information Source of Information: Patient Name/Contact Information: KARISHMA DELUCA [phone] [facility] JACE DELUCA SON [phone] Cognition/Language: WFL - Within Functional Limits Permission given to speak with patient personnel representative/caregiver as indicated: Yes Confirmation of Payer with patient/family: Yes Payer Name: [facility] DUAL COMPLETE Sedan: No Confirmation of Primary Care Physician: Confirmed [...] Prescription Coverage: Yes [facility]acy [facility] [place] Medication Management: Prescription pick-up Who assists with [...] Plan Patient expects to be discharged to: ALF FACILITY Discharge Planning Actions: Care Home Facility referral indicated [place] discussed, Choice list provided Patient's [...] states she is planning discharging to a care home facility and would like to go to facility in [place] where her daughter's friend works-[facility]. [facility] and if fa cility is in network with patient's [facility]. Did instruct patient to choose 3 [...] femoral neck fracture Surgeon: Andres Ventura MD Cinetechnician: Jono HARRIS Anesthesia: General Estimate blood loss: [...] the shift include Safety documented in this encounterSOhioHealth Southeastern Medical CenterYzbxmg33-46-7322 Note* Care Coordination - Unknown Case Management - 11/08/2022 1:57 PM EDT Patient Choice Patient Name: GONZALO DELUCA Date of : 1955 All Providers Sent Referral Name: [facility] Phone: [phone] Address: [address] [place] [address] [facility] HospitalVvftym22-90-2314 Note* Care Coordination - Unknown Case Management - 11/08/2022 1:57 PM EDT Patient Choice Patient Name: GONZALO DELUCA Date of : 1955 All Providers Sent Referral Name: [facility] Phone: [phone] Address: [address] [place], [place] [address] Abe [id number] Hospital Discharge instructions* Discharge Instr - SHAMA* [...] BSO AND PELVIC LYMPH; DR. ZIYAD MENENDEZ [facility] OTHER SURGICAL HISTORY Left 12/19/2019 Med [...] Minimal assistance Toileting Minimal assistance Feeding Independent Hide Trimmer Minimal assistance Med Delivery no Wound Care [...] Score: @READMISSIONRISKDETAILS@ Discharging to Facility/ Agency Name: [facility] Address:[address] [place] [address] Phone:[phone] Fax: Dialysis Facility (if applicable) Name: Address: Dialysis Schedule: Phone: Fax: It Systems Manager/[employer] Contact Printer signature: ICIAN SECTION Prognosis: excellent Condition at Discharge: stable Rehab Potential (if transferring to Rehab): excellent Recommended Labs or Other Treatments After Discharge: none Physician Certification: I certify the above information and transfer of Gonzalo Deluca is necessary for the continuing treatment of the diagnosis listed and that she requires care home facility for less than 30 days. Update Admission H&P: No change in H&P PHYSICIAN SIGNATURE: documented in this [facility]08-21-2023 Hospital course Narrative* Dave Whipple DO - [...] Complexity: follow up within 7-14 calendar days (89498) [x] Severe Complexity: follow up within 7 calendar days (82205) Follow up Testing, Pending results or Referrals [...] DO Division of Hospitalist Medicine Inpatient Medical Services/[facility] 11/08/2022, 1:31 PM Total time Spent on Discharge: 21 minutes documented in this [facility]08-21-2023 History of Present illness Narrative* Dave Whipple DO - 11/08/2022 1:00 PM EDT Images from the original note were not included. Hospitalist Progress Note 11/08/[phone]: Please page me ([phone]) for patient care issues. [phone]: Please page [facility] night Hospitalist for any issues. Subjective: Admit [...] respiratory failure Patient is in 2-3L via MD at baseline No acute exacerbation Resume home [...] DO Division of Hospitalist Medicine Inpatient Medical Services/[facility] PAGER: Epic chat * Betsey Gresham MD [...] 11/08/2022 10:19 AM EDT Occupational Therapy Facility/Department: [facility] Occupational Therapy Initial Evaluation NAME: Gonzalo [...] intertrochanteric fracture of left femur, initial encounter ([facility]). has a past medical history of Abnormal stress test, Allergic rhinitis, Arthritis, Asthma, Bronchitis, Cancer ([facility]/HCC) ([facility]), Cervical cancer (CMS/HCC) ([facility]), Chest pain, COPD (chronic obstructive pulmonary disease) ([facility]), DDD (degenerative disc disease), cervical, Defect, retina, with detachment, DJD (degenerative joint disease), lumbar, Emphysema lung ([facility]), Former smoker, Hematuria, Hypokalemia, Lung nodules, Osteoporosis, Palpitations, Pneumonia, Recurrent major depression ([facility]), Sciatica, Thoracic compression fracture ([facility]), and Vitamin D deficiency. She has no past medical history of Blood circulation, collateral, Chronic kidney disease, Clotting disorder (CMS/HCC) ([facility]), Disease of blood and blood forming organ, GERD (gastroesophageal reflux disease), Liver disease, Movement disorder, Other disorders of kidney and ureter in diseases classified elsewhere, Seizures ([facility]), or Syncope and collapse. has [...] 11/08/2022 9:45 AM EDT Physical Therapy Facility/Department: [facility] Physical Therapy Initial Evaluation NAME: Gonzalo [...] fixation with Dr. Ventura, is WBAT Exam: [facility] Clinical Presentation: Pt admitted 11/06 with s/p [...] intertrochanteric fracture of left femur, initial encounter ([facility]). has a past medical history of Abnormal stress test, Allergic rhinitis, Arthritis, Asthma, Bronchitis, Cancer (CMS/HCC) ([facility]), Cervical cancer (CMS/HCC) ([facility]), Chest pain, COPD (chronic obstructive pulmonary disease) ([facility]), DDD (degenerative disc disease), cervical, Defect, retina, with detachment, DJD (degenerative joint disease), lumbar, Emphysema lung ([facility]), Former smoker, Hematuria, Hypokalemia, Lung nodules, Osteoporosis, Palpitations, Pneumonia, Recurrent major depression ([facility]), Sciatica, Thoracic compression fracture ([facility]), and Vitamin D deficiency. She has no past medical history of Blood circulation, collateral, Chronic kidney disease, Clotting disorder (CMS/HCC) ([facility]), Disease of blood and blood [...] were not included. Hospitalist Progress Note 11/07/2022 [phone]: Please page me ([phone]) for patient care issues. [phone]: Please page [facility] Hospitalist for any issues. Subjective: [...] respiratory failure Patient is in 2-3L via MD at baseline No acute exacerbation Resume home [...] Relation: Child Dave Whipple DO [facility] PAGER: Epic chat documented in this encounterSOhioHealth Southeastern Medical CenterEujsbq28-63-5015 Note* Care Coordination - Phillip Gurrola RN - 11/08/2022 11:20 AM EDT Tasked [facility] to submit for auth for [place] [facility]. . [facility] HospitalDbjrer09-04-4927 Note* Care Coordination - Phillip Gurrola RN - 11/08/2022 11:20 AM EDT Tasked BUSINESS ANALYTICS SPECIALIST to submit for auth for [place] [facility]. . [facility] HospitalSwourf94-04-9527 Nurse Note* Austyn Bee RN - 11/08/2022 10:58 AM EDT Pt. found with vape in bed. When asking pt. about using the vape, pt stated, "I have been using this since I've been here" Patient educated on no smoking/vaping policy. Vape removed and placed in chart box. Protective services notified. Dr. Whipple notified. See orders. [place] [address]Gnvizk20-45-5796 Nurse Note* Austyn Bee RN - 11/08/2022 10:58 AM EDT Pt. found with vape in bed. When asking pt. about using the vape, pt stated, "I have been using this since I've been here" Patient educated on no smoking/vaping policy. Vape removed and placed in chart box. Protective services notified. Dr. Whipple notified. See orders. documented in this encounterSOhioHealth Southeastern Medical CenterCrpvlk75-58-3619 Miscellaneous Notes* Telephone Encounter - Whit Shay LPN - 11/08/2022 8:17 AM EDT Medication is pended. Last visit: 09/15/22 Next visit: 03/17/23 documented in [facility]Way[facility] Note* Care Coordination - Phillip Gurrola RN - 11/08/2022 6:59 AM EDT Images from the original note were not included. Care Management Progress Note Awaiting therapy evals and recommendations. Per careport. [facility] is able to accept. Will [...] (Days): 2 GMLOS: No GMLOS Documented . [facility] HospitalTszwar23-04-3874 Note* Care Coordination - Phillip Gurrola RN - 11/08/2022 6:59 AM EDT Images from the original note were not included. Care Management Progress Note Awaiting therapy evals and recommendations. Per homar. [facility] is able to accept. Will [...] (Days): 2 GMLOS: No GMLOS Documented . [facility] HospitalIekozn65-25-4074 Plan of care note* Care Plan - Tona Barroso RN - 11/07/2022 9:03 PM EDT The patient is Moderately Stable - Low risk of patient condition declining or worsening The patient's goals for the shift include "Pain control and rest." The clinical goals for the shift include Safety [facility] HospitalFfnbzj90-14-5414 Note* Home Care - Rosa Elena Isaac LPN - 11/07/2022 4:39 PM EDT Manager Company following case for Discharge Needs. [address]Ytxaeh77-26-4769 Note* Home Care - Rosa Elena Isaac LPN - 11/07/2022 4:39 PM EDT Manager Company following case for Discharge Needs. [facility] HospitalFqyuiw46-73-6082 Note* Care Coordination - Phillip Gurrola RN - 11/07/2022 4:20 PM EDT Care Managment Initial Assessment Date: 11/07/2022 Patient Name: Gonzalo Deluca : 1955 Patient Information Source of Information: Patient Name/Contact Information: KARISHMA DELUCA [phone] [facility] JACE DELUCA SON [phone] Cognition/Language: WFL - Within Functional Limits Permission given to speak with patient personnel representative/caregiver as indicated: Yes Confirmation of Payer with patient/family: Yes Payer Name: [facility] DUAL COMPLETE Sedan: No Confirmation of Primary Care Physician: Confirmed [...] Daily Living Prescription Coverage: Yes Pharmacy Used: [facility] [place] Medication Management: Prescription pick-up Who assists with [...] Plan Patient expects to be discharged to: ALF FACILITY Discharge Planning Actions: Care Home Facility referral indicated [place]: [place] discussed, Choice list provided Patient's [...] states she is planning discharging to a care home facility and would like to go to facility in [place] where her daughter's friend works-[facility]. Will place referral in [facility] to determine if bed is available and if fa jonnathan is in network with patient's [facility]. Did instruct patient to choose 3 other facilities in case there is no bed available at [facility]. Will have home care follow peripherally should therapy recommend home with hhc. Tentative discharge plan is home with hhc vs snf when medically stable/accepting facility and auth obtained. Phillip Gurrola RN [facility] HospitalOkvybz56-19-1449 Note* Care Coordination - Phillip Gurrola RN - 11/07/2022 4:20 PM EDT Care Managment Initial Assessment Date: 11/07/2022 Patient Name: Gonzalo Deluca : 1955 Patient Information Source of Information: Patient Name/Contact Information: KARISHMA DELUCA [phone] BRENDON DELUCA SON [phone] Cognition/Language: WFL - Within Functional Limits Permission given to speak with patient personnel representative/caregiver as indicated: Yes Confirmation of Payer with patient/family: Yes Payer Name: [facility] DUAL COMPLETE : No Confirmation of [...] Prescription Coverage: Yes [facility] [place] Medication Management: Prescription pick-up Who assists with [...] Plan Patient expects to be discharged to: ALF FACILITY Discharge Planning Actions: Care Home Facility referral indicated [place]: [place] discussed, Choice list provided Patient's [...] states she is planning discharging to a care home facility and would like to go to facility in [place] where her daughter's friend works-[facility]. Will place referral in careport to determine if bed is available and if fa jonnathan is in network with patient's [facility]. Did instruct patient to choose 3 other facilities in case there is no bed available at [facility]. Will have home care follow peripherally should therapy recommend home with hhc. Tentative discharge plan is home with hhc vs snf when medically stable/accepting facility and auth obtained. Phillip Grurola RN T [facility] HospitalTfpfuq80-23-7591 Note* Op Note - Andres Ventura MD - 11/07/2022 8:14 AM EDT Preoperative diagnosis: Left nondisplaced valgus impacted subcapital femoral neck fracture Postoperative diagnosis: Same Procedure: Percutaneous cannulated screw fixation left femoral neck fracture Surgeon: Andres Ventura MD Cinetechnician: Jono HARRIS Anesthesia: General Estimate blood loss: [...] was taken to recovery in stable condition. [facility]08-20-2023 Note* Op Note - Andres Ventura MD - 11/07/2022 8:14 AM EDT Preoperative diagnosis: Left nondisplaced valgus impacted subcapital femoral neck fracture Postoperative diagnosis: Same Procedure: Percutaneous cannulated screw fixation left femoral neck fracture Surgeon: Andres Ventura MD Cinetechnician: Jono HARRIS Anesthesia: General Estimate blood loss: [...] was taken to recovery in stable condition. [facility] HospitalNzjcib11-53-6501 Plan of care note* Care Plan - Tona Barroso RN - 11/06/2022 11:24 PM EDT The patient is Moderately Stable - Low risk of patient condition declining or worsening The patient's goals for the shift include "Pain control and rest." The clinical goals for the shift include Safety [facility] HospitalNzjmmj12-53-8956 Consult note* Andres Ventura MD - 11/06/2022 [...] holding area to obtain informed consent. T [facility] HospitalMgafqr08-86-3001 Consult note* Andres Ventura MD - 11/06/2022 [...] to obtain informed consent. documented in this [facility]08-19-2023 Emergency department Note* Gwen Solorzano RN - 11/06/2022 4:06 PM EDT Spoke with patient about which medications she has taken today, patient states that she take all medications nightly. Change medications to be given nightly. Gwen Solorzano RN 11/06/22 1603 [facility] HospitalKjqtex15-97-3380 Emergency department Note* Gwen Solorzano RN - 11/06/2022 4:06 PM EDT Spoke with patient about which medications she has taken today, patient states that she take all medications nightly. Change medications to be given nightly. Gewn Solorzano RN 11/06/22 1600 * VERA Kraft - 11/06/2022 1:02 PM [...] major depression (HCC) Sciatica Thoracic compression fracture ([facility]) Vitamin D deficiency SURGICAL HISTORY [...] COPD. I Austyn Mccann DO am the sheep killer of record. PROCEDURES: Unless otherwise noted below, none Procedures FINAL IMPRESSION 1. Closed displaced intertrochanteric fracture of left femur, initial encounter ([facility]) DISPOSITION Admit 11/06/2022 03:22:00 PM [...] Verdugo RN 11/06/22 1250 documented in this [facility]08-19-2023 History and physical note* Dave Whipple DO [...] and Asthma, HLD, anxiety/depression. who presents to [facility] on 11/06/2022 with chief complaint of [...] Allergic rhinitis Arthritis Asthma Bronchitis Cancer (CMS/HCC) ([facility]) skin Cervical cancer (CMS/HCC) ([facility]) Chest pain COPD (chronic obstructive pulmonary disease) ([facility]) USE OXYGEN 3 L AT NIGHT DDD (degenerative disc disease), cervical Defect, retina, with detachment right DJD (degenerative joint disease), lumbar Emphysema lung ([facility]) Former smoker Hematuria SCHEDULED FOR THE PROCEDURE /SURGERY ON 02/11/2017 Hypokalemia Lung nodules Osteoporosis Palpitations Pneumonia Recurrent major depression ([facility]) Sciatica Thoracic compression fracture ([facility]) Vitamin D deficiency Past Surgical History: Past Surgical History: Procedure Laterality Date CYSTOSCOPY 01/12/2017 OFFICE PROCEDURE CYSTOSCOPY 02/11/2017 C&P bladder biopsy EYE SURGERY detached retina 1994 HYSTERECTOMY 11/06/2019 ABDOMINAL RADICAL HYSTERECTOMY WITH BSO AND PELVIC LYMPH; [facility] OTHER SURGICAL H[facility] Left 12/19/2019 Med Port [...] respiratory failure Patient is in 2-3L via MD at baseline No acute exacerbation Resume home [...] H&P to the patient's PCP. Thank you. [facility] [id number] History and physical note* Dave Whipple DO [...] and Asthma, HLD, anxiety/depression. who presents to [facility] on 11/06/2022 with chief complaint of [...] Allergic rhinitis Arthritis Asthma Bronchitis Cancer (CMS/HCC) ([facility]) skin Cervical cancer (CMS/HCC) ([facility]) Chest pain COPD (chronic obstructive pulmonary disease) ([facility]) USE OXYGEN 3 L AT NIGHT DDD (degenerative disc disease), cervical Defect, retina, with detachment right DJD (degenerative joint disease), lumbar Emphysema lung ([facility]) Former smoker Hematuria SCHEDULED FOR THE PROCEDURE /SURGERY ON 02/11/2017 Hypokalemia Lung nodules Osteoporosis Palpitations Pneumonia Recurrent major depression ([facility]) Sciatica Thoracic compression fracture ([facility]) Vitamin D deficiency Past Surgical History: Past Surgical History: Procedure Laterality Date CYSTOSCOPY 01/12/2017 OFFICE PROCEDURE CYSTOSCOPY 02/11/2017 C&P bladder biopsy EYE SURGERY detached retina 1994 HYSTERECTOMY 11/06/2019 ABDOMINAL RADICAL HYSTERECTOMY WITH BSO AND PELVIC LYMPH; DR. ZIYAD MENENDEZ [facility] OTHER SURGICAL HISTORY Left 12/19/2019 Med [...] patient's PCP. Thank you. documented in this [facility]08-19-2023 Emergency department Note* VERA Kraft - 11/06/2022 1:02 PM EDT Guided Karishma back VERA Kraft 11/06/22 1302 [facility] HospitalZklqya75-58-2207 Emergency department Note* VERA Kraft - 11/06/2022 12:57 PM EDT Introduced myself as pt liaison and explaiined role and provided support to daughter Karishma in [facility] , pt arrived via EMS. VERA Kraft 11/06/22 1258 [facility] HospitalUxyzni74-13-2900 Emergency department Note* Shelley Verdugo RN - 11/06/2022 12:49 PM EDT Bed: 04 Expected date: Expected time: Means of arrival: Comments: Jean 67/F Fall with L hip pain Shelley Verdugo RN 11/06/22 1250 [facility] HospitalNfiarl60-72-4092 Emergency department Triage note* Gwen Solorzano RN - 11/06/2022 12:49 PM EDT Patient presents to the ED via EMS. Patient had a mechanical fall in her room due to tripped over her feet. Patient denies hitting head. Patient states she has balance issues at baseline and uses assistance to walk. Patient is resting comfortably with family at bedside. [facility] HospitalFkudcl59-37-7597 Physician Emergency department Note* Austyn Mccann DO [...] rhinitis Arthritis Asthma Bronchitis Cancer ([facility]) ([facility]) skin Cervical cancer (CMS/HCC) ([facility]) Chest pain COPD (chronic obstructive pulmonary disease) ([facility]) USE OXYGEN 3 L AT NIGHT DDD (degenerative disc disease), cervical Defect, retina, with detachment right DJD (degenerative joint disease), lumbar Emphysema lung ([facility]) Former smoker Hematuria SCHEDULED FOR THE PROCEDURE /SURGERY ON 02/11/2017 Hypokalemia Lung nodules Osteoporosis Palpitations Pneumonia Recurrent major depression ([facility]) Sciatica Thoracic compression fracture ([facility]) Vitamin D deficiency SURGICAL HISTORY [...] COPD. I Austyn Mccann DO am the sheep killer of record. PROCEDURES: Unless otherwise noted below, none Procedures FINAL IMPRESSION 1. Closed displaced intertrochanteric fracture of left femur, initial encounter ([facility]) DISPOSITION Admit 11/06/2022 03:22:00 PM [...] Medicine Provider Austyn Mccann DO 11/06/22 1523 [facility] Klnatm72-70-2013 Telephone encounter Note* Telephone Encounter - DB Kohli CNP - 10/27/2022 11:01 AM EDT With normal HPV and Pap I left a message encouraged patient to call back with any questions or concerns [facility] [email or web address] Work Phone: [phone] 754-141708-09-2023 Miscellaneous Notes* Telephone Encounter - DB Kohli CNP - 10/27/2022 11:01 AM EDT With normal HPV and Pap I left a message encouraged patient to call back with any questions or concerns documented in this encounterSOhioHealth Southeastern Medical CenterBigcwb26-35-5135 Miscellaneous Notes* Telephone Encounter - Whit Shay [...] Whit Shay LPN, CMA documented in this encounterWayne Hospital08-03-2023 Miscellaneous Notes* Telephone Encounter - Whit [...] Whit Shay LPN, CMA documented in this encounterWayne Hospital08-02-2023 History of Present illness Narrative* DB [...] recognition. I apologize for minor errors in gathering machine feeder which may be present. documented in this [facility]06-28-2023 History of Present illness Narrative* Melva Sandoval PA-C - 09/15/2022 2:46 PM EDT Gonzalo Deluca is a 66 year old female here today for routine follow up. COPD: Lungs feel junky. Increased sob since air quality became poor. +productive cough. Requesting prednisone and antibiotic. Has appt with drafter cartographic in [place] in September. Declines antitrypsin blood draw. Using [...] BONE DENSITY Never done documented in this encounterWayne Hospital05-12-2023 Miscellaneous Notes* Telephone Encounter - Silvia [...] advise. Silvia Trejo Ma documented in this encounterWayne Hospital05-09-2023 Miscellaneous Notes* Telephone Encounter - Whit Shay LPN - 07/27/2022 3:24 PM EDT Last appointment: 06/03/22 Next appointment: 09/03/22 Pharmacy verified in [facility]. Refill(s) requested: Requested Prescriptions Pending Prescriptions Disp Refills cyclobenzaprine (FLEXERIL) 5 mg tablet 30 tablet 2 Sig: Take 1 tablet by mouth twice daily as needed. oxyCODONE-acetaminophen (PERCOCET) 5-325 mg tablet 134 tablet 0 Sig: Take 1 tablet by mouth every 4 hours as needed for pain for up to 30 days. Order(s) pended. Please advise. Whit Shay LPN, CMA documented in this encounterWayne Hospital04-14-2023 Miscellaneous Notes* Telephone Encounter - Melva Sandoval PA-C - 07/02/2022 3:24 PM EDT Noted. Melva Sandoval PA-C * Telephone Encounter - Imelda Hull Pss - 07/02/2022 3:11 PM EDT Laurie HARRISON from [facility] is calling Herminia Case MD today to inform provider as an Patient Update (Cancelled her home OT visit today due to illness )please be advised. Patient was not feeling well. [phone]. Patient has been identified by name and birthdate. Duration of symptoms: N/A Person calling: Laurie HARRISON Call patient at: n/a [phone] (home) [phone] (cell) Was an appointment scheduled: No Closing statement: Results or non-symptom based questions: Thank you for calling [facility], your call will be returned within the next business day. Imelda Hull Pss documented in this encounterWayne Hospital04-13-2023 Miscellaneous Notes* Telephone Encounter - Whit Shay LPN - 07/01/2022 3:25 PM EDT Request completed and faxed. * Telephone Encounter - Herminia Case MD - 07/01/2022 3:00 PM EDT Done. * Telephone Encounter - Whit Shay LPN - 07/01/2022 10:35 AM EDT Type of letter/form/fax request - Home Health Care Orders Form received from [facility] on 06/30/22 floor and placed on MD desk () for completion. Completed form needs to be faxed to [phone]. Route to [place] when form completed for processing documented in this encounterWayne Hospital04-12-2023 Miscellaneous Notes* Telephone Encounter - Ruddy Moreno RN - 06/30/2022 7:20 PM EDT Laurie from [facility] informed. Advised to call back with any further concerns or questions. * Telephone Encounter - Melva Sandoval PA-C - 06/30/2022 7:13 PM EDT I am not aware of any concerning interactions. Melva Sandoval PA-C * Telephone Encounter - Ruddy Moreno RN - 06/30/2022 7:07 PM EDT Laurie, OT [facility]. Their computer program alerted her to [...] to call provider with this information Laurie [phone] (verified) Patient has been identified by name and birthdate. Duration of symptoms: N/A Person calling: OT Laurie with [facility] Call patient at: at home [phone] (home) [phone] (cell) Was an appointment scheduled: No Closing statement: Results or non-symptom based questions: Thank you for calling [facility], your call will be returned within the next business day. Kita Christiansen [facility] documented in this encounterWayne Hospital04-04-2023 Miscellaneous Notes* Telephone Encounter - Rocio [...] Rina, I am an occupational therapist with [facility]. I am callingabout patient Gonzalo Deluca, [...] for me I can be reached at [phone]. Thank you" Spoke with patient Complaints of sinus pain and pressure with nasal congestion Yellow nasal discharge Productive cough, yellow green phlegm Onset 06/20/22 Reports nebulizer broke a few years ago and [facility] also Patient is [...] : NA Protocols used: Sinus Pain or [id number] documented in this encounterWayne Hospital04-04-2023 Miscellaneous Notes* Telephone Encounter - Bernadette Rubin MA - 06/22/2022 3:55 PM EDT Last appointment: 06/03/22 Next appointment: 09/03/22 Pharmacy verified in [facility]. Refill(s) requested: Requested Prescriptions Pending Prescriptions Disp Refills albuterol (PROVENTIL) 2.5 mg /3 mL (0.083 %) nebulizer solution [Pharmacy Med Name: ALBUTEROL SUL 2.5 MG/3 ML SOLN] 90 mL 1 Sig: INHALE 3 ML VIA NEBULIZER EVERY 4 HOURS NEEDED FOR WHEEZE OR FOR SHORTNESS OF BREATH Order(s) pended. Please advise. Bernadette Rubin MA, [facility] documented in this encounterWayne Hospital04-04-2023 Miscellaneous Notes* Telephone Encounter - Whit Shay LPN - 06/22/2022 1:16 PM EDT Request completed and faxed. * Telephone Encounter - Herminia Case MD - 06/22/2022 12:59 PM EDT Done. * Telephone Encounter - Whit Shay LPN - 06/22/2022 11:38 AM EDT Type of letter/form/fax request - Home Health Care Orders Form received from [facility] on 06/21/22 floor and placed on MD desk () for completion. Completed form needs to be faxed to [phone]. Route to [place] when form completed for processing documented in this encounterWayne Hospital03-27-2023 Miscellaneous Notes* Telephone Encounter - Whit Shay LPN - 06/14/2022 12:32 PM EDT Request completed and faxed. * Telephone Encounter - Herminia Case MD - 06/14/2022 12:18 PM EDT Done. * Telephone Encounter - Whit Shay LPN - 06/14/2022 10:48 AM EDT Type of letter/form/fax request - Home Health Care Orders Form received from [facility] on 06/13/22 floor and placed on desk () for completion. Completed form needs to be faxed to [phone]. Route to [place] when form completed for processing documented in this encounterWayne Hospital03-16-2023 History of Present illness Narrative* Herminia Case MD - 06/03/2022 3:34 PM EDT VIRTUAL VISIT PROGRESS NOTE This is a virtual visit using Ideatory video visit. It required patient-provider interaction for themedical decision making as documented below. Gonzalo Deluca is a 66 year old female seen for follow up. Admitted 05/21-05/24 at [facility] none Fell on 05/21 Missed a step [...] no rash noted RESPIRATORY: breathing non-labored ASSESSMENT: (S42.163D) Other closed nondisplaced fracture of proximal end [...] visit. Herminia Case MD documented in this encounterWayne Hospital03-14-2023 Miscellaneous Notes* Telephone Encounter - Whit Shay LPN - 06/01/2022 10:42 AM EDT Request completed and faxed. * Telephone Encounter - Herminia Case MD - 06/01/2022 9:53 AM EDT Done. * Telephone Encounter - Whit Shay LPN - 06/01/2022 9:28 AM EDT Type of letter/form/fax request - Home Health Care Orders Form received from [facility] on 05/28/22 floor and placed on MD desk () for completion. Completed form needs to be faxed to [phone]. Route to [place] when form completed for processing documented in this encounterWayne Hospital03-13-2023 Miscellaneous Notes* Telephone Encounter - Herminia Case MD - 05/31/2022 8:22 PM EDT Noted. * Telephone Encounter - Jessica Whitley Pss - 05/31/2022 4:09 PM EDT Rina is an occupational therapist for [facility] and is calling to let Dr. Case know that the patient cancelled her occupational therapy visit last and has put the therapist off until Tuesday (although she has not set up a time yet). Patient's occupational therapy is delayed. Rina [phone] documented in this encounterWayne Hospital03-06-2023 Note* Care Coordination - Janet Jean RN - 05/24/2022 11:11 AM EST Pt remains on 1E, plan for discharge today. Spoke with pt at bedside, she states she wants to discharge home with daughter. MONTEIRO notified, pt confirms she has transportation home and they will bring her 02 to pick her up. Wears 2L NC. Plan for pt to discharge home with [facility]. TCC to assist and followas needed. [facility] [id number] Note* Care Coordination - Janet Jean RN [...] HHC. TCC to assist and followas needed. [facility] [id number] Miscellaneous Notes* Care Coordination - Janet Jean [...] : 1955 All Providers Sent Referral Name: [facility] Phone: [phone] Address: [address] [place] [address] * Home Care - Mahsa Castro RN - 05/23/2022 2:03 PM EST Start PACC Note Home Health Referral Educated patient on Home Care and services available. Patient offered choice of available HHC and [facility] Care [...] is noted as yes - consider a CHASER TAR evaluation once the patient returns home. START PATIENT REGISTRATION INFORMATION Order Information Order Signing Physician: Teresa Cedillo MD Service Ordered RN ?: No Service Ordered PT ?: Yes Service Ordered OT ?: Yes Service Ordered ST ?: No Service Ordered CHASER TAR?:No Service Ordered AEROSPACE ENGINEER OFFICER ARMAMENT?: No Following Physician: HERMINIA CASE MD Following Physician Overseeing Physician: HERMINIA CASE MD (Required for Residents only) Agreeable to Follow? Office closed Date/Time of Call 05/23/22 2:04 PM Care Coordination SOC Call from [facility] Required?: No Same Day SOC?: No Primary Care Physician: HERMINIA CASE MD Primary Care Physician Primary Care Physician Address: [address] [place] [address] Visit Instructions: N/A Service Discharge Location Type: Home with Home Health Care Service Facility Name: N/A Service Floor Facility: N/A Service Room No: N/A Demographics Patient Last Name: Yosi Patient First Name: Gonzalo Language/Communication Barrier: n/a Service Address: [address] [place], [place] [address] Service City: [facility]: [place] Service ZIP: [address] Service (home) Other phone numbers: Telephone Information: Emergency Contact: Extended Emergency Contact Information Primary Emergency Contact: Karishma Deluca Relation: Child Secondary Emergency Contact: Jace Deluca Relation: Child Admission Information Admit Date: 05/21/2022 Patient status at discharge: Observation Caregiver Information Caregiver First Name: Karishma Caregiver Last Name: Yosi Caregiver Relationship to Patient dtr Caregiver Caregiver Notes: N/A [employer] List No END PATIENT REGISTRATION INFORMATION Pt [...] side Discharge Date: 05/23/22 Referral Source-PACC: (Hospital/Unit): [facility] / B1-147/B1-147 B End PACC Note * Care Coordination - Phillip Gurrola RN - 05/22/2022 4:48 PM EST Care Managment Initial Assessment Date: 05/22/2022 Patient Name: Gonzalo Deluca : 1955 Patient Information Source of Information: Patient Name/Contact Information: KARISHMA DELUCA [phone] DAUGHTER Cognition/Language: WFL - Within Functional Limits Permission given to speak with patient personnel representative/caregiver as indicated: Yes Confirmation of Payer with patient/family: Yes Payer Name: [facility] DUAL COMPLETE : No Confirmation of [...] Daily Living Prescription Coverage: Yes Pharmacy Used: [facility] [place] Medication Management: Prescription pick-up Who assists with [...] expects to be discharged to: HOME WITH [facility] Discharge Planning Actions: Continue to follow [...] is electing to discharge to home with [facility] services. liaison planner updated via [facility]. Patient states lives at home with her daughter, prem's boyfriend, and her 6 year granddaughter. States her daughter plans on taking FMLA and staying with her while she recovers. Patient does wear oxygen at 2.5 liters at home cont. Denies anticipating any additional needs upon discharge. Discharge plan home with [facility] when medically stable. Anticipate probable discharge [...] of falls Outcome: Progressing documented in this [facility]03-[facility] Hospital course Narrative* Teresa Cedillo MD - [...] SNF but patient declined and wished [facility]. She was discharged home. SIGNIFICANT DIAGNOSTIC [...] Complexity: follow up within 7-14 calendar days (49370) [] Severe Complexity: follow up within 7 calendar days (10631) FOLLOW UP TESTING, PENDING RESULTS OR REFERRALS AT TRANSITIONAL CARE VISIT: [] Yes [] No PENDING STUDIES: No DISPOSITION: Home FACILITY/HOME CARE AGENCY NAME: Follow up with Betsey Gresham MD [address] [place] [phone] Schedule an appointment as soon as possible for a visit in 3 week(s) Herminia Case MD [address] [place] [address] [phone] Schedule an appointment as soon as possible [...] MD 05/24/2022, 10:00 AM documented in this [facility]03-[facility] History of Present illness Narrative* Martita Ervin, [employer] - 05/24/2022 8:39 AM EST Physical Therapy Facility/Department: [facility] Physical Therapy Daily Treatment Note NAME: [...] Allergic rhinitis, Arthritis, Asthma, Bronchitis, Cancer (CMS/HCC) ([facility]), Cervical cancer (CMS/HCC) ([facility]), Chest pain, COPD (chronic obstructive pulmonary disease) ([facility]), DDD (degenerative disc disease), cervical, Defect, retina, with detachment, DJD (degenerative joint disease), lumbar, Emphysema lung ([facility]), Former smoker, Hematuria, Hypokalemia, Lung nodules, Osteoporosis, Palpitations, Pneumonia, Recurrent major depression ([facility]), Sciatica, Thoracic compression fracture ([facility]), and Vitamin D deficiency. She has no past medical history of Blood circulation, collateral, Chronic kidney disease, Clotting disorder (CMS/HCC) (HCC), Disease of blood and blood forming organ, GERD (gastroesophageal reflux disease), Liver disease, Movement disorder, Other disorders of kidney and ureter in diseases classified elsewhere, Seizures (CMS/HCC) ([facility]), or Syncope and collapse. has [...] but no LOB noted. Distance (ft) 1: 480xqi5 Comments 1: O2 after 50ft x 1 [...] Raw Score: 16 Mobility Inpatient [facility] G-Code Modifier: CK Goals Encounter Problems Encounter [...] note were not included. Hospitalist Progress Note 05/23/[id number]: Please message me for patient care issues. [phone]: Please message [facility] night Hospitalist for any issues. Subjective: Admit Date: 05/21/2022 PCP: HERMINIA CASE MD Room#: B1-147/B1-147 B Interval History: Remains on oxygen. Tolerating diet. Pain controlled. Denies chest pain, sob, abdominal pain, nausea, vomiting, diarrhea, constipation, fevers, or chills. She is weak. Still does notwant SNF/FBT but does not feel ready to go home today. D/w pt and RN separately. Adult diet Regular @[id number]@ 24HR INTAKE/OUTPUT: No intake or output data [...] TERESA CEDILLO MD Division of Hospitalist Medicine [facility] PAGER: Epic chat * Andres Ventura MD [...] 2-3 weeks as outpatient. * Griselda Mcfarlane, [employer] - 05/23/2022 8:34 AM EST Physical Therapy Facility/Department: [facility] 1 E Physical Therapy Daily Treatment Note [...] Allergic rhinitis, Arthritis, Asthma, Bronchitis, Cancer (CMS/HCC) ([facility]), Cervical cancer (CMS/HCC) ([facility]), Chest pain, COPD (chronic obstructive pulmonary disease) ([facility]), DDD (degenerative disc disease), cervical, Defect, retina, with detachment, DJD (degenerative joint disease), lumbar, Emphysema lung ([facility]), Former smoker, Hematuria, Hypokalemia, Lung nodules, Osteoporosis, Palpitations, Pneumonia, Recurrent major depression ([facility]), Sciatica, Thoracic compression fracture ([facility]), and Vitamin D deficiency. She has no past medical history of Blood circulation, collateral, Chronic kidney disease, Clotting disorder (CMS/HCC) ([facility]), Disease of blood and blood forming organ, GERD (gastroesophageal reflux disease), Liver disease, Movement disorder, Other disorders of kidney and ureter in diseases classified elsewhere, Seizures (CMS/HCC) ([facility]), or Syncope and collapse. has [...] 05/22/2022 2:44 PM EST Physical Therapy Facility/Department: [facility] Physical Therapy Daily Treatment Note NAME: [...] DJD (degenerative joint disease), lumbar, Emphysema lung ([facility]), Former smoker, Hematuria, Hypokalemia, Lung nodules, Osteoporosis, Palpitations, Pneumonia, Recurrent major depression ([facility]), Sciatica, Thoracic compression fracture ([facility]), and Vitamin D deficiency. She has no past medical history of Blood circulation, collateral, Chronic kidney disease, Clotting disorder (CMS/HCC) ([facility]), Disease of blood and blood forming organ, GERD (gastroesophageal reflux disease), Liver disease, Movement disorder, Other disorders of kidney and ureter in diseases classified elsewhere, Seizures (CMS/HCC) ([facility]), or Syncope and collapse. has [...] Raw Score: 14 Mobility Inpatient [facility] G-Code Modifier: CL Goals Encounter Problems Encounter [...] were not included. Hospitalist Progress Note 05/22/2022 [phone]: Please message me for patient care issues. [phone]: Please message [facility] Hospitalist for any issues. Subjective: Admit Date: 05/21/2022 PCP: HERMINIA CASE MD Room#: B1-147/B1-147 B Interval History: Pain controlled. Tolerating diet. Weak. Denies chest pain, sob, abdominal pain, nausea, vomiting, diarrhea, constipation, fevers, or chills. D/w pt Adult diet Regular @[id number]@ 24HR INTAKE/OUTPUT: No intake or output data in the 24 hours ending 05/22/22 1156 Past Medical History: Past Medical History: Diagnosis Date Abnormal stress test Allergic rhinitis Arthritis Asthma Bronchitis Cancer (CMS/HCC) (HCC) skin Cervical cancer (CMS/HCC) ([facility]) Chest pain COPD (chronic obstructive pulmonary disease) ([facility]) USE OXYGEN 3 L AT [...] TERESA CEDILLO MD Division of Hospitalist Medicine [facility] PAGER: Epic chat * Andres Ventura MD [...] 05/21/2022 3:31 PM EST Physical Therapy Facility/Department: [facility] ED Physical Therapy Initial Evaluation NAME: Gonzalo [...] rhinitis, Arthritis, Asthma, Bronchitis, Cancer ([facility]/HCC) ([facility]), Cervical cancer ([facility]/HCC) ([facility]), Chest pain, COPD (chronic obstructive pulmonary disease) ([facility]), DDD (degenerative disc disease), cervical, Defect, retina, with detachment, DJD (degenerative joint disease), lumbar, Emphysema lung ([facility]), Former smoker, Hematuria, Hypokalemia, Lung nodules, Osteoporosis, Palpitations, Pneumonia, Recurrent major depression ([facility]), Sciatica, Thoracic compression fracture ([facility]), and Vitamin D deficiency. She has no past medical history of Blood circulation, collateral, Chronic kidney disease, Clotting disorder (CMS/HCC) ([facility]), Disease of blood and blood forming organ, GERD (gastroesophageal reflux disease), Liver disease, Movement disorder, Other disorders of kidney and ureter in diseases classified elsewhere, Seizures ([facility]) ([facility]), or Syncope and collapse. has [...] Independent (no device) Transfer Assistance: Independent Active Fountain Dispenser: No Additional Comments: daughter works Objective Observation/Palpation [...] Raw Score: 12 Mobility Inpatient [facility] G-Code Modifier: CL Goals Encounter Problems Encounter [...] 05/21/2022 3:27 PM EST Occupational Therapy Facility/Department: [facility] ED Occupational Therapy Initial Evaluation NAME: Gonzalo [...] Chest pain, COPD (chronic obstructive pulmonary disease) ([facility]), DDD (degenerative disc disease), cervical, Defect, retina, with detachment, DJD (degenerative joint disease), lumbar, Emphysema lung ([facility]), Former smoker, Hematuria, Hypokalemia, Lung nodules, Osteoporosis, Palpitations, Pneumonia, Recurrent major depression ([facility]), Sciatica, Thoracic compression fracture ([facility]), and Vitamin D deficiency. She has no past medical history of Blood circulation, collateral, Chronic kidney disease, Clotting disorder (CMS/HCC) ([facility]), Disease of blood and blood forming organ, GERD (gastroesophageal reflux disease), Liver disease, Movement disorder, Other disorders of kidney and ureter in diseases classified elsewhere, Seizures (CMS/HCC) ([facility]), or Syncope and collapse. has [...] Independent (no device) Transfer Assistance: Independent Active Fountain Dispenser: No Additional Comments: daughter works Objective Gross [...] is seen and examined, admitted by the sink maker early a.m., see H&P for details. Patient [...] 05/21/2022 7:43 AM EST Occupational Therapy Facility/Department: [facility] ED Occupational Therapy Initial Evaluation NAME: Gonzalo [...] 05/21/2022 7:40 AM EST Physical Therapy Facility/Department: [facility] ED Physical Therapy Initial Evaluation NAME: Gonzalo Starksyahir : 1955 Date of Service: 05/21/2022 PT/OT evaluation orders received and chart review completed. Pt found to have R proximal humerus fracture and possible R elbow occult right osseous fracture. Ortho consult pending. Will hold for updated POC and weight bearing status prior to initiating evaluation. Marian Mendosa PT documented in this [facility]03-05-2023 Plan of care note* Care Plan - [...] will remain free of falls Outcome: Progressing [id number] Plan of care note* Care Plan - [...] 180 by Nicole Swift RN Outcome: Progressing [facility] [id number] Note* Care Coordination - Unknown Case Management - 05/23/2022 2:13 PM EST Patient Choice Patient Name: GONZALO DELUCA Date of : 1955 All Providers Sent Referral Name: [facility] Phone: [phone] Address: [address] [place] [address] [facility] [id number] Note* Care Coordination - Unknown Case Management - 05/23/2022 2:13 PM EST Patient Choice Patient Name: GONZALO DELUCA Date of : 1955 All Providers Sent Referral Name: [facility] Phone: [phone] Address: [address] [place] [id number] [facility] [id number] Note* Home Care - Mahsa Castro RN - 05/23/2022 2:03 PM EST Start PACC Note Home Health Referral Educated patient on Home Care and services available. Patient offered choice of available HHC and agreeable to PT/OT services with [facility]. Care Types: [...] is noted as yes - consider a CHASER TAR evaluation once the patient returns home. START PATIENT REGISTRATION INFORMATION Order Information Order Signing Physician: Teresa Cedillo MD Service Ordered RN ?: No Service Ordered PT ?: Yes Service Ordered OT ?: Yes Service Ordered ST ?: No Service Ordered CHASER TAR?:No Service Ordered AEROSPACE ENGINEER OFFICER ARMAMENT?: No Following Physician: HERMINIA CASE MD Following Physician Overseeing Physician: HERMINIA CASE MD (Required for Residents only) Agreeable to Follow? Office closed Date/Time of Call 05/23/22 2:04 PM Care Coordination SOC Call from [facility] Required?: No Same Day SOC?: No Primary Care Physician: HERMINIA CASE MD Primary Care Physician Primary Care Physician Address: [address] [place] [id number] Visit Instructions: N/A Service Discharge Location Type: Home with Home Health Care Service Facility Name: N/A Service Floor Facility: N/A Service Room No: N/A Demographics Patient Last Name: Yosi Patient First Name: Gonzalo Language/Communication Barrier: n/a Service Address: [address] [place] [address] Service City: [facility]: [place] Service ZIP: [address] [facility] (home) Other phone numbers: Telephone Information: Emergency Contact: Extended Emergency Contact Information Primary Emergency Contact: Karishma Deluca Relation: Child Secondary Emergency Contact: Jace Deluca [place] Relation: Child Admission Information Admit Date: 05/21/2022 Patient status at discharge: Observation Caregiver Information Caregiver First Name: Karishma Caregiver Last Name: Yosi Caregiver Relationship to Patient dtr Caregiver Caregiver Notes: N/A [employer] List No END PATIENT REGISTRATION INFORMATION Pt [...] side Discharge Date: 05/23/22 Referral Source-PACC: (Hospital/Unit): [facility] / B1-147/B1-147 B End [id number]* Home Care - Mahsa Castro RN - 05/23/2022 2:03 PM EST Start PACC Note Home Health Referral Educated patient on Home Care and services available. Patient offered choice of available HHC and agreeable to PT/OT services with [facility]. [...] is noted as yes - consider a CHASER TAR evaluation once the patient returns home. START PATIENT REGISTRATION INFORMATION Order Information Order Signing Physician: Teresa Cedillo MD Service Ordered RN ?: No Service Ordered PT ?: Yes Service Ordered OT ?: Yes Service Ordered ST ?: No Service Ordered CHASER TAR?:No Service Ordered AEROSPACE ENGINEER OFFICER ARMAMENT?: No Following Physician: HERMINIA CASE MD Following Physician Overseeing Physician: HERMINIA CASE MD (Required for Residents only) Agreeable to Follow? Office closed Date/Time of Call 05/23/22 2:04 PM Care Coordination SOC Call from [facility] Required?: No Same Day SOC?: No Primary Care Physician: HERMINIA CASE MD Primary Care Physician Primary Care Physician Address: [address] [facility] [address] Visit Instructions: N/A Service Discharge Location Type: Home with Home Health Care Service Facility Name: N/A Service Floor Facility: N/A Service Room No: N/A Demographics Patient Last Name: Yosi Patient First Name: Gonzalo Language/Communication Barrier: n/a Service Address: [address] [place], [place] [address] Service City: [facility] ST: [place] Service ZIP: [address] Service (home) Other phone numbers: Telephone Information: Emergency Contact: Extended Emergency Contact Information Primary Emergency Contact: Nacho Delucai Relation: Child Secondary Emergency Contact: Jace Deluca Relation: Child Admission Information Admit Date: 05/21/2022 Patient status at discharge: Observation Caregiver Information Caregiver First Name: Karishma Caregiver Last Name: Yosi Caregiver Relationship to Patient dtr Caregiver Caregiver Notes: N/A [employer] List No END PATIENT REGISTRATION INFORMATION Pt [...] side Discharge Date: 05/23/22 Referral Source-PACC: (Hospital/Unit): [facility] / B1-147/B1-147 B End PACC [id number] Discharge instructions* Discharge Instr - Activity* Teresa Cedillo MD - 05/23/2022 12:34 PM EST Non weight bearing right upper extremity Continue shoulder immobilizer * Discharge Instr - Diet* Teresa Cedillo MD - 05/23/2022 12:35 PM EST Regular diet * Discharge Instr - Other Orders* Mahsa Castro RN - 05/23/2022 2:03 PM EST Discharging to Facility/ Agency Name: [facility] Address: [address] [place] [address] * Discharge Instr - SHAMA* Deanna Romero [...] BSO AND PELVIC LYMPH; [facility] OTHER SURGICAL HISTORY Left 12/19/2019 Med [...] 2.6 oz) Mental Status: {SHAMA Patient Mental Status:80348} IV Access: {SHAMA IV Access:58062} Nursing Mobility/ADLs: Walking {YANETH ADL:69015::"Independent"} Transfer {YANETH ADL:97262::"Independent"} Bathing {YANETH ADL:37520::"Independent"} Dressing {YANETH ADL:37207::"Independent"} Toileting {YANETH ADL:::"Independent"} Feeding {YANETH ADL:::"Independent"} Hide Trimmer {YANETH ADL:::"Independent"} Med Delivery {yes/no:21260} Wound Care Documentation and Therapy: Wound/Incision 05/21/22 Traumatic Eye Right (Active) Site Assessment Swelling 05/24/22 0755 Odor None 05/23/22 0941 Drainage Amount None 05/24/22 0755 Primary Dressing Open to air 05/24/22 0755 Number of days: 2 Wound/Incision 05/21/22 Traumatic Wrist Left;Posterior (Active) Site Assessment [place] 05/24/22 0755 Odor None 05/24/22 0755 Drainage Amount None 05/24/22 0755 Primary Dressing Steri-strips 05/24/22 0755 Dressing Status Dry;Intact 05/24/22 0755 Number of days: 2 Elimination: Continence: Bowel: {yes/no:01095} Bladder: {yes/no:04476} Urinary Catheter: {SHAMA Urinary Catheter:06166} Colostomy/Ileostomy/Ileal Conduit: {YES / NO:} Date of Last BM: No intake or output data in the 24 hours ending 05/24/22 1049 No intake/output data recorded. Safety Concerns: {SHAMA Safety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 venous access Other specified circulatory system disorders documented in this encounter [facility] Work Phone: Evaluation note* Diagnosis Malignant neoplasm of exocervix (HCC) Malignant neoplasm of exocervix Lung nodule seen on imaging study documented in this encounter [facility] Work Phone: Evaluation note* Diagnosis Compression fracture of body of thoracic vertebra (HCC) [facility] this encounter [facility]* Diagnosis Compression fracture of body of thoracic vertebra (HCC) documented in this encounter [facility]* Diagnosis COPD (chronic obstructive pulmonary disease) with acute bronchitis (HCC) Obstructive chronic bronchitis with acute bronchitis documented in this encounter [facility]* Diagnosis Panlobular emphysema (HCC)- Primary Other [...] Solitary pulmonary nodule [facility]* Diagnosis Compression fracture of body of thoracic vertebra (HCC) [facility]* Diagnosis Malignant neoplasm of exocervix (HCC)- Primary Malignant neoplasm of exocervix Abnormal chest CT Nonspecific (abnormal) findings on radiological and other examination of other intrathoracic organs Other specified complication of vascular prosthetic devices, implants and grafts, initial encounter ([facility]) Poor venous access Other specified circulatory system disorders documented in this encounter [facility] Work Phone: Evaluation note* Diagnosis Malignant neoplasm of exocervix (HCC) Malignant neoplasm of exocervix Abnormal findings on diagnostic imaging of other specified body structures Abnormal chest CT Nonspecific (abnormal) findings on radiological and other examination of other intrathoracic organs documented in this encounter [employer] Work Phone: Evaluation note* Diagnosis Compression fracture of body of thoracic vertebra (HCC) [facility]* Diagnosis Medication management Encounter for long-term (current) use of other medications [facility]* Diagnosis Hyperlipidemia, mixed Mixed hyperlipidemia [facility]* Diagnosis Compression fracture of body of thoracic vertebra (HCC) [facility]* Diagnosis Other acute sinusitis, recurrence not specified- Primary [facility]* Diagnosis Chronic midline low back pain without sciatica [facility]* Diagnosis Medication management Encounter for long-term (current) use of other medications [facility]* Diagnosis Panlobular emphysema (HCC)- Primary Other emphysema [facility]* Diagnosis COPD (chronic obstructive pulmonary disease) with acute bronchitis (HCC)- Primary Obstructive chronic bronchitis with acute bronchitis DDD (degenerative disc disease), lumbar Degeneration of lumbar or lumbosacral intervertebral disc Major depression, recurrent, chronic (HCC) Major depressive disorder, recurrent episode, unspecified [facility]* Diagnosis Chronic midline low back pain without sciatica [facility]* Diagnosis Compression fracture of body [...] thoracic vertebra (HCC) documented in this encounter [facility] note* Diagnosis Chronic respiratory failure with hypoxia (HCC)- Primary Chronic respiratory failure Panlobular emphysema (HCC) Other emphysema [facility]* Diagnosis Encounter for screening mammogram for breast cancer documented in this encounter [facility] note* Diagnosis Compression fracture of body of thoracic vertebra (HCC) Other closed nondisplaced fracture of proximal end of right humerus with routine healing, subsequent encounter documented in this encounter [facility] note* Diagnosis Major depression, recurrent, chronic (HCC) Major depressive disorder, recurrent episode, unspecified documented in this encounter [facility] note* Diagnosis Medication management Encounter for long-term (current) use of other medications documented in this encounter [facility] note* Diagnosis Panlobular emphysema (HCC)- Primary Other [...] recurrent episode, unspecified documented in this encounter [facility] note* Diagnosis Major depression, recurrent, chronic (HCC) Major depressive disorder, recurrent episode, unspecified documented in this encounter [facility] note* Diagnosis Malignant neoplasm of exocervix (HCC)- Primary Malignant neoplasm of exocervix Encounter for screening mammogram for malignant neoplasm of breast documented in this encounter [facility] note* Diagnosis Compression fracture of body of thoracic vertebra (HCC) Other closed nondisplaced fracture of proximal end of right humerus with routine healing, subsequent encounter documented in this encounter [facility] note* Diagnosis Major depression, recurrent, chronic (HCC) Major depressive disorder, recurrent episode, unspecified [facility]* Diagnosis Pulmonary emphysema, unspecified emphysema type (HCC) documented [facility]* Diagnosis Nondisplaced fracture of neck of left femur (HCC)- Primary Closed displaced intertrochanteric fracture of left femur, initial encounter ([facility]) documented in this encounter [facility] note* Diagnosis Compression fracture of body of thoracic vertebra (HCC) documented [facility]* Diagnosis Compression fracture of body of thoracic vertebra (HCC) Other closed nondisplaced fracture of proximal end of right humerus with routine healing, subsequent encounter documented in this encounter [facility]* Diagnosis Hyperlipidemia, mixed Mixed hyperlipidemia [facility]* Diagnosis Pulmonary emphysema, unspecified emphysema type (HCC) documented [facility]* Diagnosis Age-related osteoporosis without current pathological fracture Senile osteoporosis documented [facility]* Diagnosis Age-related osteoporosis with current pathological fracture of left femur with routine healing- Primary Aftercare for healing pathologic fracture of upper leg documented [facility]* Diagnosis Compression fracture of body of [...] with routine healing, subsequent encounter Moderate malnutrition ([facility]) Malnutrition of moderate degree documented [facility]* Diagnosis Lumbar compression fracture, closed, initial encounter ([facility])- Primary Lumbar compression fracture, closed, initial encounter ([facility]) Fall, initial encounter Multiple falls Nondisplaced fracture of neck of left femur ([facility]) documented in this encounter [facility] note* Diagnosis Compression fracture of body of thoracic vertebra (HCC) Other closed nondisplaced fracture of proximal end of right humerus with routine healing, subsequent encounter documented [facility] encounter [facility]* Diagnosis PAUL (generalized anxiety disorder)- Primary [...] bronchitis with exacerbation documented in this encounter [facility] note* Diagnosis Compression fracture of body of thoracic vertebra (HCC) Other closed nondisplaced fracture of proximal end of right humerus with routine healing, subsequent encounter [facility] encounter [facility]* Diagnosis Herpes zoster without complication- Primary Herpes zoster without mention of complication [facility]* Diagnosis Compression fracture of body of thoracic vertebra (HCC) Other closed nondisplaced fracture of proximal end of right humerus with routine healing, subsequent encounter documented [facility] encounter [facility]* Diagnosis Moderate episode of recurrent major depressive disorder (HCC) documented in this encounter [facility] note* Diagnosis Falls frequently- Primary Personal history of fall Near syncope Closed head injury, initial encounter Fall, initial encounter Compression fracture of T5 vertebra, initial encounter (HCC) Compression fracture of T7 vertebra, initial encounter ([facility]) Compression fracture of T8 vertebra, initial encounter ([facility]) Compression fracture of L1 vertebra, initial encounter ([facility]) Severe malnutrition (CMS/HCC) (HCC) Nutritional marasmus Chronic back pain Unspecified backache COPD (chronic obstructive pulmonary disease) (HCC) Chronic airway obstruction, not elsewhere classified Supplemental oxygen dependent Dependence on supplemental oxygen Unintentional weight loss Loss of weight Debility Unspecified debility documented in this encounter [facility] note* Diagnosis OPENED IN ERROR- Primary To allow closing an encounter opened in error (used in SmartSet) documented in this encounter [facility]* Diagnosis Pathological fracture of vertebra due to other osteoporosis with routine healing, subsequent encounter- Primary documented [facility]* Diagnosis Pulmonary emphysema, unspecified emphysema type (HCC) documented in this encounter [facility]* Diagnosis Osteoporotic vertebral collapse, with routine healing, subsequent encounter- Primary documented in this encounter [facility]* Diagnosis Fall, initial encounter- Primary Compression fracture of body of thoracic vertebra (HCC) documented in this encounter [facility] note* Diagnosis Moderate episode of recurrent major depressive disorder (HCC) documented in this encounter [facility]* Diagnosis Compression fracture of body of thoracic vertebra (HCC) Other closed nondisplaced fracture of proximal end of right humerus with routine healing, subsequent encounter documented in this encounter [facility]* Diagnosis Pulmonary emphysema, unspecified emphysema type (HCC) documented [facility] this encounter [facility]* Diagnosis Osteoporotic vertebral collapse, with routine healing, subsequent encounter- Primary documented [facility]* Diagnosis Panlobular emphysema (HCC) Other emphysema Compression fracture of body of thoracic vertebra (HCC) Other closed nondisplaced fracture of proximal end of right humerus with routine healing, subsequent encounter documented [facility] encounter [facility]* Diagnosis Age-related osteoporosis without current pathological fracture Senile osteoporosis documented [facility] this encounter [facility]* Diagnosis Panlobular emphysema (HCC) Other emphysema documented [facility]* Diagnosis Compression fracture of body of thoracic vertebra (HCC) Other closed nondisplaced fracture of proximal end of right humerus with routine healing, subsequent encounter documented [facility] this encounter [facility]* Diagnosis PAUL (generalized anxiety disorder) Generalized anxiety disorder documented [facility] this encounter [facility]* Diagnosis Malignant neoplasm of exocervix (HCC)- Primary Malignant neoplasm of exocervix documented in this encounter [facility] note* Diagnosis Fall, initial encounter- Primary Fall, initial encounter Facial laceration, initial encounter Closed fracture of neck of right humerus, initial encounter Humeral head fracture, right, closed, initial encounter Humeral head fracture, right, closed, initial encounter documented in this encounter [facility] note* Diagnosis Compression fracture of body of thoracic vertebra (HCC) Other closed nondisplaced fracture of proximal end of right humerus with routine healing, subsequent encounter documented [facility] this encounter [facility]* Diagnosis Moderate episode of recurrent major depressive disorder (HCC) documented [facility]* Diagnosis Moderate episode of recurrent major depressive disorder (HCC) PAUL (generalized anxiety disorder) Generalized anxiety disorder documented [facility] encounter [facility]* Diagnosis Pulmonary emphysema, unspecified emphysema type (HCC) documented [facility]* Diagnosis Contusion of face, initial encounter- Primary documented in this encounter [facility] note* Diagnosis Compression fracture of body [...] healing, subsequent encounter [facility] this encounter [facility]* Diagnosis Moderate episode of recurrent major depressive disorder (HCC) Compression fracture of body of thoracic vertebra (HCC) Other closed nondisplaced fracture of proximal end of right humerus with routine healing, subsequent encounter [facility]* Diagnosis Panlobular emphysema (HCC)- Primary Other emphysema Moderate episode of recurrent major depressive disorder (HCC) Chronic respiratory failure with hypoxia (HCC) Chronic respiratory failure [facility]* Diagnosis Compression fracture of body of thoracic vertebra (HCC) Other closed nondisplaced fracture of proximal end of right humerus with routine healing, subsequent encounter [facility]* Diagnosis Chronic respiratory failure with hypoxia (HCC)- Primary Chronic respiratory failure Centrilobular emphysema (HCC) Other emphysema Adult failure to thrive Severe protein-calorie malnutrition (HCC) Other severe protein-calorie malnutrition documented [facility]* Diagnosis Chronic obstructive pulmonary disease, unspecified COPD type (HCC)- Primary Severe malnutrition (CMS/HCC) (HCC) Nutritional marasmus [facility]* Diagnosis Adult failure to thrive- Primary [...] risk for delirium documented [facility]* Diagnosis PAUL (generalized anxiety disorder) Generalized anxiety disorder documented [facility] this encounter [facility]* Diagnosis Hospital discharge follow-up- Primary Other follow-up examination Acute on chronic respiratory failure with hypoxia (HCC) Centrilobular emphysema (HCC) Aspiration pneumonia of left lower lobe, unspecified aspiration pneumonia type (HCC) Chronic obstructive pulmonary disease with acute lower respiratory infection (HCC) History of tobacco abuse Severe malnutrition (CMS/HCC) (HCC) Nutritional marasmus [facility] Diagnosis Compression fracture of body of thoracic vertebra (HCC) Other closed nondisplaced fracture of proximal end of right humerus with routine healing, subsequent encounter [facility]* Diagnosis Other specified complication of vascular prosthetic devices, implants and grafts, initial encounter (HCC)- Primary Poor venous access [facility]* Diagnosis Chronic obstructive pulmonary disease with acute lower respiratory infection (HCC) documented in this encounter [facility] noteNo assessment information availableWCleveland Clinic [facility] Work Phone: Evaluation note* Diagnosis Centrilobular emphysema (HCC)- Primary Chronic respiratory failure with hypoxia (HCC) History of tobacco abuse Severe malnutrition (CMS/HCC) (HCC) Nutritional marasmus Pulmonary nodule Other diseases of lung, not elsewhere classified documented in this encounter [facility] note* Diagnosis Centrilobular emphysema (HCC)- Primary Chronic respiratory failure with hypoxia (HCC) History of tobacco abuse Severe malnutrition (CMS/HCC) (HCC) Nutritional marasmus Pulmonary nodule Other diseases of lung, not elsewhere classified documented in this encounter [facility] note* Diagnosis COPD exacerbation (HCC)- Primary [...] Other chronic pain documented in this encounter [facility] Discharge instructions* Attachments The following attachments cannot be sent through Care Everywhere. * Acute Bronchitis Discharge Instructions, Adult (Sudanese) documented in this [facility] Discharge instructions* Attachments The following attachments cannot be sent through Care Everywhere. * Closed Head Injury Discharge Instructions (Sudanese) documented in this [facility] for referral (narrative)* Diagnostic Procedure Only (Routine) - Pending Review Specialty Diagnoses / Procedures Referred By Lisa french Referred To Contact BR IMAGING Diagnoses Encounter for screening mammogram for breast cancer Procedures [facility] SCREENING SCREENING MAMMOGRAPHY BI 2-VIEW BREAST INC Herminai Perkins MD [address] [place], [place] [id number] Br Imaging [address] [place] [address] Referral ID Status Reason Start Date Expiration Date Visits Requested Visits Authorized [id number] Pending Review Auto-Generat ed Referral 07/14/2022 08/13/2023 [address] [facility] for referral (narrative)* Diagnostic Procedure Only (Routine) - Pending Review Specialty Diagnoses / Procedures Referred By Contac t Referred To Contact BR IMAGING Diagnoses Encounter for screening mammogram for breast cancer Procedures PAOLO SCREENING SCREENING MAMMOGRAPHY BI 2-VIEW BREAST INC CAD Herminia Case MD [address] [id number] Br Imaging [address] [place] [address] Referral ID Status Reason Start Date Expiration Date Visits Requested Visits Authorized [id number] Pending Review Auto-Generat ed Referral 06/22/2023 07/21/2024 1 1 [facility] for referral (narrative)No reason for referral [facility] Phone: Reason for visit Narrative* Treatment Plan (Routine) Status Reason Specialty Diagnoses / Procedures Referred By Contact Referred To Contact Authorized Diagnoses Malignant neoplasm of exocervix (HCC) Poor venous access Ziyad Menendez MD [address] [facility] [address] [place] [address] [facility] [address] [place] [address] [facility] Work Phone: Reason for visit Narrative* Treatment Plan and Therapy Plan (Routine) Status Reason Specialty Diagnoses / Procedures Referred By Contact Referred To Contact Authorized Diagnoses Malignant neoplasm of exocervix (HCC) Poor venous access Ziyad Menendez MD [address] [facility] [place] [address] [facility] [address] [place] [address] [facility] Phone: reason for visit Narrative* Treatment Plan and Therapy Plan (Routine) - Pending Review Specialty Diagnoses / Procedures Referred By [facility] Referred To Contact Diagnoses Poor venous access Other specified complication of vascular prosthetic devices, implants and grafts, initial encounter (HCC) Herminia Case MD [address] [place] [address] b Med Onc [address] [place] [address] Referral ID Status Reason Start Date Expiration Date V isits Requested Visits Authorized [id number] Pending Review 08/06/2021 08/06/2022 1 1 [employer] Phone: reason for visit Narrative* Imaging (Routine) - Closed Specialty Diagnoses / Procedures Referred By Lisa french Referred To Contact Radiology Diagnoses Chronic obstructive pulmonary disease with acute lower respiratory infection (HCC) Procedures CT chest wo IV contrast Elyssa Tesfaye NP [address] [place] [address] Phone: tel: fax: Referral ID Status Reason Start Date Expiration Date Visits Re quested Visits Authorized [id number] Closed 08/20/2024 08/20/2025 1 1 [facility] [email or web address] Discharge Instructions * Pharmacy* Estee Pantoja RPH [...] doctor for further instructions HERMINIA CASE MD [phone] RED ZONE: Medical Alert Severe or unrelieved shortness of breath at rest Unrelieved chest pain Not able to do any activity because of breathing Not able to sleep because of breathing Confusion or you can't think clearly This Means You Should Call 911 Immediately documented in this encounter* Attachments The following attachments cannot be sent through Care Everywhere. * Compression Fracture: Spine (Sudanese) documented in this encounter* Instructions* Ankit Zaragoza [...] Real RN - 11/05/2019 Please bring your [facility] Surgical Information folder on the day [...] through Care Everywhere. * Hysterectomy: Abdominal: Pre-op (Sudanese) * Oophorectomy: Pre-op (Sudanese) documented in this encounter* Instructions* Tani Joseph MD - 11/09/2019 Come back tomorrow for your ultrasound. If you have any chest pain or shortness of breath return tothe emergency department immediately * Attachments The following attachments cannot be sent through Care Everywhere. * Edema: Leg and Ankle (Sudanese) documented in this encounter* Instructions* Jaspreet Lam, [...] and ask for the Interventional Radiologist business transformation manager. IF YOU REPORT TO AN EMERGENCY ROOM, DOCTOR'S OFFICE OR HOSPITAL WITHIN 24 HOURS AFTER YOUR PROCEDURE, BRING THIS SHEET AND YOUR AFTER VISIT SUMMARY WITH YOU AND GIVE IT TO THE PHYSICIAN OR NURSE ATTENDING YOU.Implanted Port: What to Expect at Home Your Recovery Questions: [phone] You have had a procedure to implant [...] When should you call for help? Call 409 anytime you think you may need emergency [...] (before 7am or after 5 pm) call [phone] and ask for the Interventional Radiologist business transformation manager. Where can you learn more? Go to [email or web address] and sign in to your MyChart account. Enter M256 in the Search Health Information box to learn more about Implanted Port: What to Expect at Home. If you do not have an account, please click on the "Sign Up Now" link. Current as of: August 15, 2015 Content Version: 11.2 [phone] [employer]. Care instructions adapted under license by [employer]. If youhave questions about a medical condition or this instruction, always ask your healthcare professional. [employer] disclaims any warranty or liability for your use of this information. documented in this encounter* Attachments The following attachments cannot be sent through Care Everywhere. * COPD: General Info (Sudanese) * Bronchitis (Sudanese) documented in this encounter* Discharge Instr - [...] Your home care will be provided by: [facility] [phone] * Attachments The following attachments cannot be sent through Care Everywhere. * Ischemic Stroke: General Info (Sudanese) documented in this encounter History of Present Illness * Phillip Snyder RCP - 08/04/2019 1:28 PM EDT [facility] Respiratory Care Department Progress Note SpO2 at [...] EDT Hospitalist Progress Note 08/03/2019 2:56 PM [phone]: Please page me ([phone]) for patient care issues. [phone]: Please page IMS night Hospitalist for any issues. Subjective: Admit Date: 08/02/2019 PCP: HERMINIA CASE MD Room#: 891/2947 Interval History: No overnight issues. Feels better. [...] to improve Roland Ortiz DO [facility] In[facility] Medical Services PAGER: [phone] documented in this encounter* Brandy Del Real [...] Report called to [facility]. Transfer back to [facility]. documented in this encounter* Imtiaz Mckoen RN - 01/17/2020 11:30 AM EDT Arrival [...] All questions answered. documented in this encounter* sEtee Aguero RN - 01/25/2020 3:08 PM EST [...] 11/23/2019 11:46 AM EDT Physical Therapy Facility/Department: [facility] 4S TELEMETRY Initial Assessment NAME: Gonzalo [...] test, Allergic rhinitis, Arthritis, Asthma, Bronchitis, Cancer ([facility]), Cervical cancer ([facility]), Chest pain, COPD (chronic obstructive pulmonary disease) ([facility]), DDD (degenerative disc disease), cervical, Defect, retina, with detachment, DJD (degenerative joint disease), lumbar, Emphysema lung ([facility]), Former smoker, Hematuria, Hypokalemia, Lung nodules, Osteoporosis, Palpitations, Pneumonia, Recurrent major depression ([facility]), Sciatica, Thoracic compressionfracture ([facility]), and Vitamin D deficiency. has [...] Assistance: Independent(no device) Transfer Assistance: Independent Active Fountain Dispenser: Yes Mode of Transportation: Car Occupation: On [...] for falls, Left in bed, Nurse notified [facility] Score [facility] Inpatient Mobility Raw Score : 21 (11/23/19 114) [facility] Inpatient T-Scale Score : 50.25 (11/23/19 114) Mobility Inpatient CMS 0-100% Score: 28.97 (11/23/19 114) Mobility Inpatient CMS G-Code Modifier : CJ (11/23/191140) [facility] Mobility Inpatient How much difficulty turning over [...] climbing 3-5 steps with a railing?: Total [facility] Inpatient Mobility Raw Score : 21 [facility] Inpatient T-Scale Score : 50.25 Mobility Inpatient [...] Recurrent major depression (HCC), Sciatica, Thoracic compressionfracture ([facility]), and Vitamin D deficiency. has [...] Assistance: Independent(no device) Transfer Assistance: Independent Active Fountain Dispenser: Yes Mode of Transportation: Car Occupation: On [...] 11/22/2019 2:59 PM EDT Physical Therapy Facility/Department: [facility] TELEMETRY Initial Assessment NAME: Gonzalo [...] Date: 11/21/2019 PCP: HERMINIA CASE MD Room#: 491/[id number] Interval History: No overnight issues; feeling much [...] head/neck and MRI of the brain pending. SMOKING PIPE MOUNTER screened; no diet texture change recommended at [...] Accumulation: 1 - Mild Extremities(+1-2 RLE Edema) Death Surveys Coder Strength: Not Performed Estimated Daily Nutrient Needs: Energy (kcal): 6876-4705 kcals; Weight Used for Energy Requirements: Atlantic(57kg) Protein (g): 57-68(1-1.2); Weight Used for Protein Requirements: [place](57kg) Fluid (ml/day): 1710 ml/day or per MD; Weight Used for Fluid Requirements: [place] Nutrition Related Findings: +1-2 RLE edema; K+ [...] lb (70.3 kg)(150-155# in the last month) [place] Body Weight: 125 lbs; % [place] Body Weight 124.8 % BMI: 26 Adjusted [...] Oral Nutrition Supplement, Continue current diet Contact: [phone] * Amelie Esquivel SLP - 11/22/2019 9:57 AM EDT Speech Language Pathology Patient is on a General diet. Completed speech orders as per stroke protocol. Spoke with pt and completed speech screening. No obvious facial weakness, dysarthria, or language deficits. Amelie Esquivel M.A.CCC/SMOKING PIPE MOUNTER Speech-Language Pathologist documented in this encounter* Florencia [...] time restraints. Wants to be scheduled in [place] for cathflo this week. 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 Advance Directives and Living Will Power of Glazing Department Supervisor Latest Code Status on File Code [...] Documents on File Type Date Recorded 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 Extension Officer Expl anation ACP-Advance Directive ACP-Power of Glazing Department Supervisor Latest Code Status on File Code Status Date Activated Date Inactivated Comments Full Code 11/06/2019 12:37 PM 11/08/2019 9:35 PM Full Code 11/06/2019 7:02 AM 11/06/2019 12:22 PM Full Code 08/03/2019 5:57 PM 08/04/2019 5:09 PM Full Code 10/17/2018 1:23 AM 10/18/2018 8:29 PM Full Code 06/05/2018 7:30 AM 06/07/2018 7:14 PM Documents on File Type Date Recorded 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 Extension Officer Expl 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 ACP-Advance Directive ACP-Power of Glazing Department Supervisor Latest Code Status on File Code [...] Documents on File Type Date Recorded 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 Extension Officer Expl anation Advance Directive(s) 09/12/2020 12:26 PM Documents on File Type Date Recorded 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 Extension Officer Expl anation Advance Directive(s) 09/12/2020 12:26 PM [...] Documents on File Type Date Recorded 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 Extension Officer Expl anation DNR (Do Not Resuscitate) 07/31/2024 3:36 PM [place] DNR Form Date Activated Date Inactivated Comments [...] Documents on File Type Date Recorded 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 Extension Officer Expl anation DNR (Do Not Resuscitate) 07/31/2024 3:36 PM [place] DNR Form Date Activated Date Inactivated Comments [...] Documents on File Type Date Recorded 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 Extension Officer Expl anation DNR (Do Not Resuscitate) 01/22/2025 1:49 PM [place] DNR Form DNR (Do Not Resuscitate) 07/31/2024 3:36 PM [place] DNR Form Date Activated Date Inactivated Comments [...] Documents on File Type Date Recorded 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 Extension Officer 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 anation DNR (Do Not Resuscitate) 01/24/2025 11:21 AM DNR (Do Not Resuscitate) 01/22/2025 1:49 PM [place] DNR Form DNR (Do Not Resuscitate) 07/31/2024 3:36 PM [place] DNR Form Date Activated Date Inactivated Comments [...] Venous Right Tani Joseph MD [address] [place] [address] Status Reason Specialty Diagnoses / Procedures Referre d By Contact Referred To Contact Closed Radiology Diagnoses Malignant neoplasm of exocervix (HCC) Procedures XA SPECIAL ANGIOGRAPHY PROCEDURE Ziyad Menendez MD [address] [facility] [place] [address] Status Reason Specialty Diagnoses / Procedures Referre d By Contact Referred To Contact Closed Radiology Diagnoses Malignant neoplasm of exocervix (HCC) Lung nodule seen on imaging study Procedures CT CHEST ABDOMEN PELVIS W CONTRAST Ziyad Menendez MD [address] [facility] [place] [address] Status Reason Specialty Diagnoses / Procedures Referre d By Contact Referred To Contact Open Radiology Diagnoses Abnormal CT of the chest Procedures CT Chest W Contrast Ziyad Menendez MD [address] [facility] [place] [address] Status Reason Specialty Diagnoses / Procedures Referred By Contact Referred To Contact Open Specialty Services Required Orthopedic Surgery Diagnoses Closed fracture of coccyx, initial encounter (HCC) Lauren Lutz APRN - DENTIST [address] [place] [address] [facility] [address] [address] [place] [address] Scheduling Instructions [facility] Orthopedics [facility] [address] [place] [address] Specialty Diagnoses / Procedures Referred By Contac t Referred To Contact Pulmonary and Critical Care Medicine Diagnoses Panlobular emphysema (HCC) Chronic respiratory failure with hypoxia (HCC) Procedures CONSULT TO PULM/CRITICAL CARE OFFICE/OUTPATIENT [facility] 60-74 MINUTES Herminia Case MD [address] [place] [address] Referral ID Status Reason Start Date Expiration Date Visits Requested Visits Authorized [id number] Pending Review PCP Requested Referral 08/06/2021 08/06/2022 1 1 Specialty Diagnoses / Procedures Referred By Contac t Referred To Contact BR IMAGING Diagnoses Encounter for screening mammogram for malignant neoplasm of breast Procedures PAOLO SCREENING W CARON SCREENING DIGITAL BREAST TOMOSYNTHESIS BI SCREENING MAMMOGRAPHY BI 2-VIEW BREAST INC CAD Herminia Case MD [address] [place] [address] Br Imaging [address] [place] [address] Referral ID Status Reason Start Date Expiration Date Visits Requested Visits Authorized [id number] Pending Review Auto-Generat ed Referral 08/06/2021 09/05/2022 1 1 Specialty Diagnoses / Procedures Referred By Contac t Referred To Contact Radiology Diagnoses Malignant neoplasm of exocervix (HCC) Abnormal chest CT Procedures CT Chest W Contrast Ziyad Menendez MD [address] [facility] [place] [address] Referral ID Status Reason Start Date Expiration Date Visits Re quested Visits Authorized [id number] Closed 09/17/2021 09/17/2022 1 1 Specialty Diagnoses / Procedures Referred By Contac t Referred To Contact Gena Michaels, SOUND PRINTER.[facility] [address] [place] [address] Referral ID Status Reason Start Date Expiration Date V isits Requested Visits Authorized [id number] Pending Review 1 1 Specialty Diagnoses / Procedures Referred By Contac t Referred To Contact Radiology Diagnoses Malignant neoplasm of exocervix (HCC) Procedures CT chest wo IV contrast Kisha Pepe APRN - [facility] [address] [facility] [address] [place] [address] Referral ID Status Reason Start Date Expiration Date V isits Requested Visits Authorized [id number] Pending Review 10/20/2022 04/18/2023 1 1 Specialty Diagnoses / Procedures Referred By Contac t Referred To Contact Diagnoses Family history of breast cancer Malignant neoplasm of exocervix (HCC) Procedures CONSULT TO MEDICAL GENETICS - CANCER MEDICAL GENETICS COUNSELING EACH 30 MINUTES Herminia Case MD [address] [place] [address] [facility] [place] [address] [place] [address] Referral ID Status Reason Start Date Expiration Date Visits Requested Visits Authorized [id number] Pending Review PCP Requested Referral Auto-Generate d [...] am LABWORK September 17, 2024 5:00 am [facility] WORK September 17, 2024 9: 00am [facility] WORK October 01, 2024 5: 00am [...] venous access Ziyad Menendez MD [address] [facility] [place] [address] [facility] [address] [place] [address] Reason Comments Fall Elbow Pain Tailbone Pain [...] Chest W Contrast Ziyad Menendez MD [address] [facility] [place] [address] Referral ID Status Reason Start Date Expiration Date Visits Re quested Visits Authorized [id number] Closed 09/17/2021 09/17/2022 1 1 Reason Comments [...] intertrochanteric fracture of left femur, initial encounter ([facility]) Procedures . Dave Whipple DO [address] [place] [address] [facility] 4s Telemetry [address] [place] [address] Referral ID Status Reason Start Date Expiration Date Visits Re quested Visits Authorized [id number] 1 1 Reason Onset Date Comments Refill [...] encounter Lumbar compression fracture, closed, initial encounter ([facility]) Procedures . Lauren Serna MD [address] [address] Referral ID Status Reason Start Date Expiration Date Visits Re quested Visits Authorized [id number] 1 1 Reason Onset Date Comments Refill [...] 08/20/2023 Reason Comments Electronic Communication FAX from [place] E n[place] is going to be coming [...] r55 Nickolas Marrero MD [address] [place] [address] [facility] [address] [place] [address] Referral ID Status Reason Start Date Expiration Date Visits Re quested Visits Authorized [id number] 1 1 Reason Onset Date Comments Opened In Error 10/06/2023 Reason Comments Home Care Physical therapy del ayed 1 week Reason Onset Date Comments Home Care Management 10/06/2023 Home care C [facility] .For cert dates 09/26/2023 - 11/24/2023 that were signed on 10/10/2023.[facility]'s home health 485 form / care [...] To Contact Diagnoses Fall, initial encounter Procedures [facility] [id number] ...[facility] Dual Complete active per [employer] eff 03/21/22 ...auth required ...pending auth ref# [id number] ...UM to fax clinical to [phone] Dianne Dalei [address] [place] [id number] [facility] Emergency Dept [address] [place] [address] Referral ID Status Reason Start Date Expiration Date Visits Re quested Visits Authorized [id number] 1 1 Reason Onset Date Comments Refill [...] initial encounter Procedures . Lauren Serna MD [address] [place] [address] Phone: tel: fax: [facility] Cardiac Progressive Care Unit PCU [address]E [address] [place] [address] Phone: tel: Referral ID Status Reason Start Date Expiration Date Visits Re quested Visits Authorized [id number] 1 1 Reason Comments Hospital Follow-up COPD,PSA/MSSA/STREP [...] Procedures . Boy Lynn MD [address] [place] [address] Phone: tel: fax: [facility] ED [address] [place] [address] Phone: tel: fax: Referral ID Status Reason Start Date Expiration Date Visits Re quested Visits Authorized [id number] 1 1 INFORMATION SOURCE (unrecogn ized section and content) DATE CREATED AUTHOR 10/12/2019 [facility] DATE CREATED AUTHOR AUTHOR'S ORGANIZ ATION 11/14/2019 [facility] DATE CREATED AUTHOR AUTHOR'S ORGANIZ ATION 06/13/2020 [facility] [email or web address] [facility] DATE CREATED AUTHOR AUTHOR'S ORGANIZ ATION 09/13/2020 [facility] DATE CREATED AUTHOR AUTHOR'S ORGANIZ ATION 12/19/2021 [facility] [email or web address] [facility] DATE CREATED AUTHOR AUTHOR'S ORGANIZ ATION 07/31/2024 [facility] DATE CREATED AUTHOR AUTHOR'S ORGANIZ ATION 01/25/2025 [facility] DATE CREATED AUTHOR AUTHOR'S ORGANIZ ATION 01/28/2025 [facility] Ordered Prescriptions (unrec ognized section and content) [...] Provider: Cheryl Valdivia RN) HYDROcodone-acetaminophe n ([place]) 5-325 MG per tablet 1 tablet (CANCELED)(Linked [...] RR < 8; notify primary team business transformation manager if used ondansetron (Zofran) injection 4 mg(Linked [...] dose 0712 (Given - Provider: Jessica Iqbal [facility]) Linked Groups Order Group 1: acetaminophen [...] in 24 hours. Group 2: HYDROcodone-acetaminophen ([place]) 5-325 MG per tablet 1 tablet (CANCELED)Jump to med 1 tablet, Oral, Every 4 hours PRN, moderate pain (4-6), Starting on Tue02/17/23 at 0706, Maximum dose of acetaminophen is 4000 mg from all sources in 24 hours. Or HYDROcodone-acetaminophen ([place]) 5-325 MG per tablet 2 tablet (CANCELED) [...] sodium chloride 0.9 % 250 mL IVPB (ADD-[place]) (COMPLETED) 500 mg, IntraVENous, Administer over 60 Minutes, Once, On 08/07/23 at 1520, For 1 dose, [place] bag, Suspected Indication (Select all that apply): [...] for opioid reversal - MUST notify business transformation manager provider immediately after first dose, may give [...] access) 0530 (Not Given - Provider: Rocio Chaevs LPN - Reason: Patient/family refused)1730 (Not Given [...] Yes 0911 (Given - Provider: Phillip Snyder GREEN BUILDING ENGINEER)2028 (Given - Provider: DICK SpenceP) 0838 (Given - Provider: Rosa Fiore GREEN BUILDING ENGINEER)2026 (Given - Provider: Luz Pruett, HAND BOX COVERER) 0859 (Given - Provider: Kimber Alvarado GREEN BUILDING ENGINEER) aspirin EC tablet 81 mg 81 mg, [...] for opioid reversal - MUST notify business transformation manager provider immediately after first dose, may give [...] - Provider: Sadie Rodriguez RN) sodium chloride ([place]) 0.65 % nasal spray 2 spray 2 [...] Medina, RN)2021 (Given - Provider: Jessica Gallardo, CHARLEY) cefepime (Maxipime) 2,000 mg in sodium [...] Salas RCP)194 (Given - Provider: Antolin Jose, HAND BOX COVERER) 0954 (Given - Provider: Kaykay Ambriz RCP)1456 [...] [place] RCP)1947 (Given - Provider: Antolin Jose, HAND BOX COVERER) 100 (Given - Provider: Kaykay Ambriz RCP)1952 [...] pupils, Starting on 01/12/25 at 1314, +++notify business transformation manager provider if used+++ ondansetron (Zofran) injection 4 [...] or prosecute any alcohol or drug abuse patient.[facility] HospitalIn the event this information is protected by the Federal Confidentiality of Alcohol and Drug Abuse Patient Records regulations: The Federal rules restrict any use of the information to criminally investigate or prosecute any alcohol or drug abuse patient.[facility] HospitalIn the event this information is protected by the Federal Confidentiality of Alcohol and Drug Abuse Patient Records regulations: The Federal rules restrict any use of the information to criminally investigate or prosecute any alcohol or drug abuse patient.[facility] HospitalIn the event this information is protected by the Federal Confidentiality of Alcohol and Drug Abuse Patient Records regulations: The Federal rules restrict any use of the information to criminally investigate or prosecute any alcohol or drug abuse patient.[facility] HospitalIn the event this information is protected by the Federal Confidentiality of Alcohol and Drug Abuse Patient Records regulations: The Federal rules restrict any use of the information to criminally investigate or prosecute any alcohol or drug abuse patient.[facility] HospitalIn the event this information is protected by the Federal Confidentiality of Alcohol and Drug Abuse Patient Records regulations: The Federal rules restrict any use of the information to criminally investigate or prosecute any alcohol or drug abuse patient.[facility] HospitalIn the event this information is protected by the Federal Confidentiality of Alcohol and Drug Abuse Patient Records regulations: The Federal rules restrict any use of the information to criminally investigate or prosecute any alcohol or drug abuse patient.[facility] HospitalIn the event this information is protected by the Federal Confidentiality of Alcohol and Drug Abuse Patient Records regulations: The Federal rules restrict any use of the information to criminally investigate or prosecute any alcohol or drug abuse patient.[facility] HospitalIn the event this information is protected by the Federal Confidentiality of Alcohol and Drug Abuse Patient Records regulations: The Federal rules restrict any use of the information to criminally investigate or prosecute any alcohol or drug abuse patient.[facility] HospitalIn the event this information is protected by the Federal Confidentiality of Alcohol and Drug Abuse Patient Records regulations: The Federal rules restrict any use of the information to criminally investigate or prosecute any alcohol or drug abuse patient.[facility] HospitalIn the event this information is protected by the Federal Confidentiality of Alcohol and Drug Abuse Patient Records regulations: The Federal rules restrict any use of the information to criminally investigate or prosecute any alcohol or drug abuse patient.[facility] HospitalIn the event this information is protected by the Federal Confidentiality of Alcohol and Drug Abuse Patient Records regulations: The Federal rules restrict any use of the information to criminally investigate or prosecute any alcohol or drug abuse patient.[facility] HospitalIn the event this information is protected by the Federal Confidentiality of Alcohol and Drug Abuse Patient Records regulations: The Federal rules restrict any use of the information to criminally investigate or prosecute any alcohol or drug abuse patient.[facility] HospitalIn the event this information is protected by the Federal Confidentiality of Alcohol and Drug Abuse Patient Records regulations: The Federal rules restrict any use of the information to criminally investigate or prosecute any alcohol or drug abuse patient.[facility] HospitalIn the event this information is protected by the Federal Confidentiality of Alcohol and Drug Abuse Patient Records regulations: The Federal rules restrict any use of the information to criminally investigate or prosecute any alcohol or drug abuse patient.[facility] HospitalIn the event this information is protected by the Federal Confidentiality of Alcohol and Drug Abuse Patient Records regulations: The Federal rules restrict any use of the information to criminally investigate or prosecute any alcohol or drug abuse patient.[facility] HospitalIn the event this information is protected by the Federal Confidentiality of Alcohol and Drug Abuse Patient Records regulations: The Federal rules restrict any use of the information to criminally investigate or prosecute any alcohol or drug abuse patient.[facility] HospitalIn the event this information is protected by the Federal Confidentiality of Alcohol and Drug Abuse Patient Records regulations: The Federal rules restrict any use of the information to criminally investigate or prosecute any alcohol or drug abuse patient.[facility] HospitalIn the event this information is protected by the Federal Confidentiality of Alcohol and Drug Abuse Patient Records regulations: The Federal rules restrict any use of the information to criminally investigate or prosecute any alcohol or drug abuse patient.[facility] HospitalIn the event this information is protected by the Federal Confidentiality of Alcohol and Drug Abuse Patient Records regulations: The Federal rules restrict any use of the information to criminally investigate or prosecute any alcohol or drug abuse patient.[facility] HospitalIn the event this information is protected by the Federal Confidentiality of Alcohol and Drug Abuse Patient Records regulations: The Federal rules restrict any use of the information to criminally investigate or prosecute any alcohol or drug abuse patient.[facility] HospitalIn the event this information is protected by the Federal Confidentiality of Alcohol and Drug Abuse Patient Records regulations: The Federal rules restrict any use of the information to criminally investigate or prosecute any alcohol or drug abuse patient.[facility] HospitalIn the event this information is protected by the Federal Confidentiality of Alcohol and Drug Abuse Patient Records regulations: The Federal rules restrict any use of the information to criminally investigate or prosecute any alcohol or drug abuse patient.[facility] HospitalIn the event this information is protected by the Federal Confidentiality of Alcohol and Drug Abuse Patient Records regulations: The Federal rules restrict any use of the information to criminally investigate or prosecute any alcohol or drug abuse patient.[facility] HospitalIn the event this information is protected by the Federal Confidentiality of Alcohol and Drug Abuse Patient Records regulations: The Federal rules restrict any use of the information to criminally investigate or prosecute any alcohol or drug abuse patient.[facility] HospitalIn the event this information is protected by the Federal Confidentiality of Alcohol and Drug Abuse Patient Records regulations: The Federal rules restrict any use of the information to criminally investigate or prosecute any alcohol or drug abuse patient.[facility] HospitalIn the event this information is protected by the Federal Confidentiality of Alcohol and Drug Abuse Patient Records regulations: The Federal rules restrict any use of the information to criminally investigate or prosecute any alcohol or drug abuse patient.[facility] HospitalIn the event this information is protected by the Federal Confidentiality of Alcohol and Drug Abuse Patient Records regulations: The Federal rules restrict any use of the information to criminally investigate or prosecute any alcohol or drug abuse patient.[facility] HospitalIn the event this information is protected by the Federal Confidentiality of Alcohol and Drug Abuse Patient Records regulations: The Federal rules restrict any use of the information to criminally investigate or prosecute any alcohol or drug abuse patient.[facility] HospitalIn the event this information is protected by the Federal Confidentiality of Alcohol and Drug Abuse Patient Records regulations: The Federal rules restrict any use of the information to criminally investigate or prosecute any alcohol or drug abuse patient.[facility] HospitalIn the event this information is protected by the Federal Confidentiality of Alcohol and Drug Abuse Patient Records regulations: The Federal rules restrict any use of the information to criminally investigate or prosecute any alcohol or drug abuse patient.[facility] HospitalIn the event this information is protected by the Federal Confidentiality of Alcohol and Drug Abuse Patient Records regulations: The Federal rules restrict any use of the information to criminally investigate or prosecute any alcohol or drug abuse patient.[facility] HospitalIn the event this information is protected by the Federal Confidentiality of Alcohol and Drug Abuse Patient Records regulations: The Federal rules restrict any use of the information to criminally investigate or prosecute any alcohol or drug abuse patient.[facility] HospitalIn the event this information is protected by the Federal Confidentiality of Alcohol and Drug Abuse Patient Records regulations: The Federal rules restrict any use of the information to criminally investigate or prosecute any alcohol or drug abuse patient.[facility] HospitalIn the event this information is protected by the Federal Confidentiality of Alcohol and Drug Abuse Patient Records regulations: The Federal rules restrict any use of the information to criminally investigate or prosecute any alcohol or drug abuse patient.[facility] HospitalIn the event this information is protected by the Federal Confidentiality of Alcohol and Drug Abuse Patient Records regulations: The Federal rules restrict any use of the information to criminally investigate or prosecute any alcohol or drug abuse patient.[facility] HospitalIn the event this information is protected by the Federal Confidentiality of Alcohol and Drug Abuse Patient Records regulations: The Federal rules restrict any use of the information to criminally investigate or prosecute any alcohol or drug abuse patient.[facility] HospitalIn the event this information is protected by the Federal Confidentiality of Alcohol and Drug Abuse Patient Records regulations: The Federal rules restrict any use of the information to criminally investigate or prosecute any alcohol or drug abuse patient.[facility] HospitalIn the event this information is protected by the Federal Confidentiality of Alcohol and Drug Abuse Patient Records regulations: The Federal rules restrict any use of the information to criminally investigate or prosecute any alcohol or drug abuse patient.[facility] HospitalIn the event this information is protected by the Federal Confidentiality of Alcohol and Drug Abuse Patient Records regulations: The Federal rules restrict any use of the information to criminally investigate or prosecute any alcohol or drug abuse patient.[facility] HospitalIn the event this information is protected by the Federal Confidentiality of Alcohol and Drug Abuse Patient Records regulations: The Federal rules restrict any use of the information to criminally investigate or prosecute any alcohol or drug abuse patient.[facility] HospitalIn the event this information is protected by the Federal Confidentiality of Alcohol and Drug Abuse Patient Records regulations: The Federal rules restrict any use of the information to criminally investigate or prosecute any alcohol or drug abuse patient.[facility] HospitalIn the event this information is protected by the Federal Confidentiality of Alcohol and Drug Abuse Patient Records regulations: The Federal rules restrict any use of the information to criminally investigate or prosecute any alcohol or drug abuse patient.[facility] HospitalIn the event this information is protected by the Federal Confidentiality of Alcohol and Drug Abuse Patient Records regulations: The Federal rules restrict any use of the information to criminally investigate or prosecute any alcohol or drug abuse patient.[facility] HospitalIn the event this information is protected by the Federal Confidentiality of Alcohol and Drug Abuse Patient Records regulations: The Federal rules restrict any use of the information to criminally investigate or prosecute any alcohol or drug abuse patient.[facility] HospitalIn the event this information is protected by the Federal Confidentiality of Alcohol and Drug Abuse Patient Records regulations: The Federal rules restrict any use of the information to criminally investigate or prosecute any alcohol or drug abuse patient.[facility] HospitalIn the event this information is protected by the Federal Confidentiality of Alcohol and Drug Abuse Patient Records regulations: The Federal rules restrict any use of the information to criminally investigate or prosecute any alcohol or drug abuse patient.[facility] HospitalIn the event this information is protected by the Federal Confidentiality of Alcohol and Drug Abuse Patient Records regulations: The Federal rules restrict any use of the information to criminally investigate or prosecute any alcohol or drug abuse patient.[facility] HospitalIn the event this information is protected by the Federal Confidentiality of Alcohol and Drug Abuse Patient Records regulations: The Federal rules restrict any use of the information to criminally investigate or prosecute any alcohol or drug abuse patient.[facility] HospitalIn the event this information is protected by the Federal Confidentiality of Alcohol and Drug Abuse Patient Records regulations: The Federal rules restrict any use of the information to criminally investigate or prosecute any alcohol or drug abuse patient.[facility] HospitalIn the event this information is protected by the Federal Confidentiality of Alcohol and Drug Abuse Patient Records regulations: The Federal rules restrict any use of the information to criminally investigate or prosecute any alcohol or drug abuse patient.[facility] HospitalIn the event this information is protected by the Federal Confidentiality of Alcohol and Drug Abuse Patient Records regulations: The Federal rules restrict any use of the information to criminally investigate or prosecute any alcohol or drug abuse patient.[facility] HospitalIn the event this information is protected by the Federal Confidentiality of Alcohol and Drug Abuse Patient Records regulations: The Federal rules restrict any use of the information to criminally investigate or prosecute any alcohol or drug abuse patient.[facility] HospitalIn the event this information is protected by the Federal Confidentiality of Alcohol and Drug Abuse Patient Records regulations: The Federal rules restrict any use of the information to criminally investigate or prosecute any alcohol or drug abuse patient.[facility] HospitalIn the event this information is protected by the Federal Confidentiality of Alcohol and Drug Abuse Patient Records regulations: The Federal rules restrict any use of the information to criminally investigate or prosecute any alcohol or drug abuse patient.[facility] HospitalIn the event this information is protected by the Federal Confidentiality of Alcohol and Drug Abuse Patient Records regulations: The Federal rules restrict any use of the information to criminally investigate or prosecute any alcohol or drug abuse patient.[facility] HospitalIn the event this information is protected by the Federal Confidentiality of Alcohol and Drug Abuse Patient Records regulations: The Federal rules restrict any use of the information to criminally investigate or prosecute any alcohol or drug abuse patient.[facility] HospitalIn the event this information is protected by the Federal Confidentiality of Alcohol and Drug Abuse Patient Records regulations: The Federal rules restrict any use of the information to criminally investigate or prosecute any alcohol or drug abuse patient.[facility] HospitalIn the event this information is protected by the Federal Confidentiality of Alcohol and Drug Abuse Patient Records regulations: The Federal rules restrict any use of the information to criminally investigate or prosecute any alcohol or drug abuse patient.[facility] HospitalIn the event this information is protected by the Federal Confidentiality of Alcohol and Drug Abuse Patient Records regulations: The Federal rules restrict any use of the information to criminally investigate or prosecute any alcohol or drug abuse patient.[facility] HospitalIn the event this information is protected by the Federal Confidentiality of Alcohol and Drug Abuse Patient Records regulations: The Federal rules restrict any use of the information to criminally investigate or prosecute any alcohol or drug abuse patient.[facility] HospitalIn the event this information is protected by the Federal Confidentiality of Alcohol and Drug Abuse Patient Records regulations: The Federal rules restrict any use of the information to criminally investigate or prosecute any alcohol or drug abuse patient.[facility] HospitalIn the event this information is protected by the Federal Confidentiality of Alcohol and Drug Abuse Patient Records regulations: The Federal rules restrict any use of the information to criminally investigate or prosecute any alcohol or drug abuse patient.[facility] HospitalIn the event this information is protected by the Federal Confidentiality of Alcohol and Drug Abuse Patient Records regulations: The Federal rules restrict any use of the information to criminally investigate or prosecute any alcohol or drug abuse patient.[facility] HospitalIn the event this information is protected by the Federal Confidentiality of Alcohol and Drug Abuse Patient Records regulations: The Federal rules restrict any use of the information to criminally investigate or prosecute any alcohol or drug abuse patient.[facility] HospitalIn the event this information is protected by the Federal Confidentiality of Alcohol and Drug Abuse Patient Records regulations: The Federal rules restrict any use of the information to criminally investigate or prosecute any alcohol or drug abuse patient.[facility] HospitalIn the event this information is protected by the Federal Confidentiality of Alcohol and Drug Abuse Patient Records regulations: The Federal rules restrict any use of the information to criminally investigate or prosecute any alcohol or drug abuse patient.[facility] HospitalIn the event this information is protected by the Federal Confidentiality of Alcohol and Drug Abuse Patient Records regulations: The Federal rules restrict any use of the information to criminally investigate or prosecute any alcohol or drug abuse patient.[facility] HospitalIn the event this information is protected by the Federal Confidentiality of Alcohol and Drug Abuse Patient Records regulations: The Federal rules restrict any use of the information to criminally investigate or prosecute any alcohol or drug abuse patient.[facility] HospitalIn the event this information is protected by the Federal Confidentiality of Alcohol and Drug Abuse Patient Records regulations: The Federal rules restrict any use of the information to criminally investigate or prosecute any alcohol or drug abuse patient.[facility] HospitalIn the event this information is protected by the Federal Confidentiality of Alcohol and Drug Abuse Patient Records regulations: The Federal rules restrict any use of the information to criminally investigate or prosecute any alcohol or drug abuse patient.[facility] HospitalIn the event this information is protected by the Federal Confidentiality of Alcohol and Drug Abuse Patient Records regulations: The Federal rules restrict any use of the information to criminally investigate or prosecute any alcohol or drug abuse patient.[facility] HospitalIn the event this information is protected by the Federal Confidentiality of Alcohol and Drug Abuse Patient Records regulations: The Federal rules restrict any use of the information to criminally investigate or prosecute any alcohol or drug abuse patient.[facility] HospitalIn the event this information is protected by the Federal Confidentiality of Alcohol and Drug Abuse Patient Records regulations: The Federal rules restrict any use of the information to criminally investigate or prosecute any alcohol or drug abuse patient.[facility] HospitalIn the event this information is protected by the Federal Confidentiality of Alcohol and Drug Abuse Patient Records regulations: The Federal rules restrict any use of the information to criminally investigate or prosecute any alcohol or drug abuse patient.[facility] HospitalIn the event this information is protected by the Federal Confidentiality of Alcohol and Drug Abuse Patient Records regulations: The Federal rules restrict any use of the information to criminally investigate or prosecute any alcohol or drug abuse patient.[facility] HospitalIn the event this information is protected by the Federal Confidentiality of Alcohol and Drug Abuse Patient Records regulations: The Federal rules restrict any use of the information to criminally investigate or prosecute any alcohol or drug abuse patient.[facility] HospitalIn the event this information is protected by the Federal Confidentiality of Alcohol and Drug Abuse Patient Records regulations: The Federal rules restrict any use of the information to criminally investigate or prosecute any alcohol or drug abuse patient.[facility] HospitalIn the event this information is protected by the Federal Confidentiality of Alcohol and Drug Abuse Patient Records regulations: The Federal rules restrict any use of the information to criminally investigate or prosecute any alcohol or drug abuse patient.[facility] HospitalIn the event this information is protected by the Federal Confidentiality of Alcohol and Drug Abuse Patient Records regulations: The Federal rules restrict any use of the information to criminally investigate or prosecute any alcohol or drug abuse patient.[facility] HospitalIn the event this information is protected by the Federal Confidentiality of Alcohol and Drug Abuse Patient Records regulations: The Federal rules restrict any use of the information to criminally investigate or prosecute any alcohol or drug abuse patient.[facility] HospitalIn the event this information is protected by the Federal Confidentiality of Alcohol and Drug Abuse Patient Records regulations: The Federal rules restrict any use of the information to criminally investigate or prosecute any alcohol or drug abuse patient.[facility] HospitalIn the event this information is protected by the Federal Confidentiality of Alcohol and Drug Abuse Patient Records regulations: The Federal rules restrict any use of the information to criminally investigate or prosecute any alcohol or drug abuse patient.[facility] HospitalIn the event this information is protected by the Federal Confidentiality of Alcohol and Drug Abuse Patient Records regulations: The Federal rules restrict any use of the information to criminally investigate or prosecute any alcohol or drug abuse patient.[facility] HospitalIn the event this information is protected by the Federal Confidentiality of Alcohol and Drug Abuse Patient Records regulations: The Federal rules restrict any use of the information to criminally investigate or prosecute any alcohol or drug abuse patient.[facility] HospitalIn the event this information is protected by the Federal Confidentiality of Alcohol and Drug Abuse Patient Records regulations: The Federal rules restrict any use of the information to criminally investigate or prosecute any alcohol or drug abuse patient.[facility] HospitalIn the event this information is protected by the Federal Confidentiality of Alcohol and Drug Abuse Patient Records regulations: The Federal rules restrict any use of the information to criminally investigate or prosecute any alcohol or drug abuse patient.[facility] HospitalIn the event this information is protected by the Federal Confidentiality of Alcohol and Drug Abuse Patient Records regulations: The Federal rules restrict any use of the information to criminally investigate or prosecute any alcohol or drug abuse patient.[facility] HospitalIn the event this information is protected by the Federal Confidentiality of Alcohol and Drug Abuse Patient Records regulations: The Federal rules restrict any use of the information to criminally investigate or prosecute any alcohol or drug abuse patient.[facility] HospitalIn the event this information is protected by the Federal Confidentiality of Alcohol and Drug Abuse Patient Records regulations: The Federal rules restrict any use of the information to criminally investigate or prosecute any alcohol or drug abuse patient.[facility] HospitalIn the event this information is protected by the Federal Confidentiality of Alcohol and Drug Abuse Patient Records regulations: The Federal rules restrict any use of the information to criminally investigate or prosecute any alcohol or drug abuse patient.[facility] HospitalIn the event this information is protected by the Federal Confidentiality of Alcohol and Drug Abuse Patient Records regulations: The Federal rules restrict any use of the information to criminally investigate or prosecute any alcohol or drug abuse patient.[facility] HospitalIn the event this information is protected by the Federal Confidentiality of Alcohol and Drug Abuse Patient Records regulations: The Federal rules restrict any use of the information to criminally investigate or prosecute any alcohol or drug abuse patient.[facility] HospitalIn the event this information is protected by the Federal Confidentiality of Alcohol and Drug Abuse Patient Records regulations: The Federal rules restrict any use of the information to criminally investigate or prosecute any alcohol or drug abuse patient.[facility] HospitalIn the event this information is protected by the Federal Confidentiality of Alcohol and Drug Abuse Patient Records regulations: The Federal rules restrict any use of the information to criminally investigate or prosecute any alcohol or drug abuse patient.[facility] HospitalIn the event this information is protected by the Federal Confidentiality of Alcohol and Drug Abuse Patient Records regulations: The Federal rules restrict any use of the information to criminally investigate or prosecute any alcohol or drug abuse patient.[facility] HospitalIn the event this information is protected by the Federal Confidentiality of Alcohol and Drug Abuse Patient Records regulations: The Federal rules restrict any use of the information to criminally investigate or prosecute any alcohol or drug abuse patient.[facility] HospitalIn the event this information is protected by the Federal Confidentiality of Alcohol and Drug Abuse Patient Records regulations: The Federal rules restrict any use of the information to criminally investigate or prosecute any alcohol or drug abuse patient.[facility] HospitalIn the event this information is protected by the Federal Confidentiality of Alcohol and Drug Abuse Patient Records regulations: The Federal rules restrict any use of the information to criminally investigate or prosecute any alcohol or drug abuse patient.[facility] HospitalIn the event this information is protected by the Federal Confidentiality of Alcohol and Drug Abuse Patient Records regulations: The Federal rules restrict any use of the information to criminally investigate or prosecute any alcohol or drug abuse patient.[facility] HospitalIn the event this information is protected by the Federal Confidentiality of Alcohol and Drug Abuse Patient Records regulations: The Federal rules restrict any use of the information to criminally investigate or prosecute any alcohol or drug abuse patient.[facility] HospitalIn the event this information is protected by the Federal Confidentiality of Alcohol and Drug Abuse Patient Records regulations: The Federal rules restrict any use of the information to criminally investigate or prosecute any alcohol or drug abuse patient.[facility] HospitalIn the event this information is protected by the Federal Confidentiality of Alcohol and Drug Abuse Patient Records regulations: The Federal rules restrict any use of the information to criminally investigate or prosecute any alcohol or drug abuse patient.[facility] HospitalIn the event this information is protected by the Federal Confidentiality of Alcohol and Drug Abuse Patient Records regulations: The Federal rules restrict any use of the information to criminally investigate or prosecute any alcohol or drug abuse patient.[facility] HospitalIn the event this information is protected by the Federal Confidentiality of Alcohol and Drug Abuse Patient Records regulations: The Federal rules restrict any use of the information to criminally investigate or prosecute any alcohol or drug abuse patient.[facility] HospitalIn the event this information is protected by the Federal Confidentiality of Alcohol and Drug Abuse Patient Records regulations: The Federal rules restrict any use of the information to criminally investigate or prosecute any alcohol or drug abuse patient.[facility] HospitalIn the event this information is protected by the Federal Confidentiality of Alcohol and Drug Abuse Patient Records regulations: The Federal rules restrict any use of the information to criminally investigate or prosecute any alcohol or drug abuse patient.[facility] HospitalIn the event this information is protected by the Federal Confidentiality of Alcohol and Drug Abuse Patient Records regulations: The Federal rules restrict any use of the information to criminally investigate or prosecute any alcohol or drug abuse patient.[facility] HospitalIn the event this information is protected by the Federal Confidentiality of Alcohol and Drug Abuse Patient Records regulations: The Federal rules restrict any use of the information to criminally investigate or prosecute any alcohol or drug abuse patient.[facility] HospitalIn the event this information is protected by the Federal Confidentiality of Alcohol and Drug Abuse Patient Records regulations: The Federal rules restrict any use of the information to criminally investigate or prosecute any alcohol or drug abuse patient.[facility] HospitalIn the event this information is protected by the Federal Confidentiality of Alcohol and Drug Abuse Patient Records regulations: The Federal rules restrict any use of the information to criminally investigate or prosecute any alcohol or drug abuse patient.[facility] HospitalIn the event this information is protected by the Federal Confidentiality of Alcohol and Drug Abuse Patient Records regulations: The Federal rules restrict any use of the information to criminally investigate or prosecute any alcohol or drug abuse patient.[facility] HospitalIn the event this information is protected by the Federal Confidentiality of Alcohol and Drug Abuse Patient Records regulations: The Federal rules restrict any use of the information to criminally investigate or prosecute any alcohol or drug abuse patient.[facility] HospitalIn the event this information is protected by the Federal Confidentiality of Alcohol and Drug Abuse Patient Records regulations: The Federal rules restrict any use of the information to criminally investigate or prosecute any alcohol or drug abuse patient.[facility] HospitalIn the event this information is protected by the Federal Confidentiality of Alcohol and Drug Abuse Patient Records regulations: The Federal rules restrict any use of the information to criminally investigate or prosecute any alcohol or drug abuse patient.[facility] HospitalIn the event this information is protected by the Federal Confidentiality of Alcohol and Drug Abuse Patient Records regulations: The Federal rules restrict any use of the information to criminally investigate or prosecute any alcohol or drug abuse patient.[facility] HospitalIn the event this information is protected by the Federal Confidentiality of Alcohol and Drug Abuse Patient Records regulations: The Federal rules restrict any use of the information to criminally investigate or prosecute any alcohol or drug abuse patient.[facility] HospitalIn the event this information is protected by the Federal Confidentiality of Alcohol and Drug Abuse Patient Records regulations: The Federal rules restrict any use of the information to criminally investigate or prosecute any alcohol or drug abuse patient.[facility] HospitalIn the event this information is protected by the Federal Confidentiality of Alcohol and Drug Abuse Patient Records regulations: The Federal rules restrict any use of the information to criminally investigate or prosecute any alcohol or drug abuse patient.[facility] HospitalIn the event this information is protected by the Federal Confidentiality of Alcohol and Drug Abuse Patient Records regulations: The Federal rules restrict any use of the information to criminally investigate or prosecute any alcohol or drug abuse patient.[facility] HospitalIn the event this information is protected by the Federal Confidentiality of Alcohol and Drug Abuse Patient Records regulations: The Federal rules restrict any use of the information to criminally investigate or prosecute any alcohol or drug abuse patient.[facility] HospitalIn the event this information is protected by the Federal Confidentiality of Alcohol and Drug Abuse Patient Records regulations: The Federal rules restrict any use of the information to criminally investigate or prosecute any alcohol or drug abuse patient.[facility] HospitalIn the event this information is protected by the Federal Confidentiality of Alcohol and Drug Abuse Patient Records regulations: The Federal rules restrict any use of the information to criminally investigate or prosecute any alcohol or drug abuse patient.[facility] HospitalIn the event this information is protected by the Federal Confidentiality of Alcohol and Drug Abuse Patient Records regulations: The Federal rules restrict any use of the information to criminally investigate or prosecute any alcohol or drug abuse patient.[facility] HospitalIn the event this information is protected by the Federal Confidentiality of Alcohol and Drug Abuse Patient Records regulations: The Federal rules restrict any use of the information to criminally investigate or prosecute any alcohol or drug abuse patient.[facility] HospitalIn the event this information is protected by the Federal Confidentiality of Alcohol and Drug Abuse Patient Records regulations: The Federal rules restrict any use of the information to criminally investigate or prosecute any alcohol or drug abuse patient.[facility] HospitalIn the event this information is protected by the Federal Confidentiality of Alcohol and Drug Abuse Patient Records regulations: The Federal rules restrict any use of the information to criminally investigate or prosecute any alcohol or drug abuse patient.[facility] HospitalIn the event this information is protected by the Federal Confidentiality of Alcohol and Drug Abuse Patient Records regulations: The Federal rules restrict any use of the information to criminally investigate or prosecute any alcohol or drug abuse patient.[facility] HospitalIn the event this information is protected by the Federal Confidentiality of Alcohol and Drug Abuse Patient Records regulations: The Federal rules restrict any use of the information to criminally investigate or prosecute any alcohol or drug abuse patient.[facility] HospitalIn the event this information is protected by the Federal Confidentiality of Alcohol and Drug Abuse Patient Records regulations: The Federal rules restrict any use of the information to criminally investigate or prosecute any alcohol or drug abuse patient.[facility] HospitalIn the event this information is protected by the Federal Confidentiality of Alcohol and Drug Abuse Patient Records regulations: The Federal rules restrict any use of the information to criminally investigate or prosecute any alcohol or drug abuse patient.[facility] HospitalIn the event this information is protected by the Federal Confidentiality of Alcohol and Drug Abuse Patient Records regulations: The Federal rules restrict any use of the information to criminally investigate or prosecute any alcohol or drug abuse patient.[facility] HospitalIn the event this information is protected by the Federal Confidentiality of Alcohol and Drug Abuse Patient Records regulations: The Federal rules restrict any use of the information to criminally investigate or prosecute any alcohol or drug abuse patient.[facility] HospitalIn the event this information is protected by the Federal Confidentiality of Alcohol and Drug Abuse Patient Records regulations: The Federal rules restrict any use of the information to criminally investigate or prosecute any alcohol or drug abuse patient.[facility] HospitalIn the event this information is protected by the Federal Confidentiality of Alcohol and Drug Abuse Patient Records regulations: The Federal rules restrict any use of the information to criminally investigate or prosecute any alcohol or drug abuse patient.[facility] HospitalIn the event this information is protected by the Federal Confidentiality of Alcohol and Drug Abuse Patient Records regulations: The Federal rules restrict any use of the information to criminally investigate or prosecute any alcohol or drug abuse patient.[facility] HospitalIn the event this information is protected by the Federal Confidentiality of Alcohol and Drug Abuse Patient Records regulations: The Federal rules restrict any use of the information to criminally investigate or prosecute any alcohol or drug abuse patient.[facility] HospitalIn the event this information is protected by the Federal Confidentiality of Alcohol and Drug Abuse Patient Records regulations: The Federal rules restrict any use of the information to criminally investigate or prosecute any alcohol or drug abuse patient.[facility] HospitalIn the event this information is protected by the Federal Confidentiality of Alcohol and Drug Abuse Patient Records regulations: The Federal rules restrict any use of the information to criminally investigate or prosecute any alcohol or drug abuse patient.[facility] HospitalIn the event this information is protected by the Federal Confidentiality of Alcohol and Drug Abuse Patient Records regulations: The Federal rules restrict any use of the information to criminally investigate or prosecute any alcohol or drug abuse patient.[facility] HospitalIn the event this information is protected by the Federal Confidentiality of Alcohol and Drug Abuse Patient Records regulations: The Federal rules restrict any use of the information to criminally investigate or prosecute any alcohol or drug abuse patient.[facility] HospitalIn the event this information is protected by the Federal Confidentiality of Alcohol and Drug Abuse Patient Records regulations: The Federal rules restrict any use of the information to criminally investigate or prosecute any alcohol or drug abuse patient.[facility] HospitalIn the event this information is protected by the Federal Confidentiality of Alcohol and Drug Abuse Patient Records regulations: The Federal rules restrict any use of the information to criminally investigate or prosecute any alcohol or drug abuse patient.[facility] HospitalIn the event this information is protected by the Federal Confidentiality of Alcohol and Drug Abuse Patient Records regulations: The Federal rules restrict any use of the information to criminally investigate or prosecute any alcohol or drug abuse patient.[facility] HospitalIn the event this information is protected by the Federal Confidentiality of Alcohol and Drug Abuse Patient Records regulations: The Federal rules restrict any use of the information to criminally investigate or prosecute any alcohol or drug abuse patient.[facility] HospitalIn the event this information is protected by the Federal Confidentiality of Alcohol and Drug Abuse Patient Records regulations: The Federal rules restrict any use of the information to criminally investigate or prosecute any alcohol or drug abuse patient.[facility] HospitalIn the event this information is protected by the Federal Confidentiality of Alcohol and Drug Abuse Patient Records regulations: The Federal rules restrict any use of the information to criminally investigate or prosecute any alcohol or drug abuse patient.[facility] HospitalIn the event this information is protected by the Federal Confidentiality of Alcohol and Drug Abuse Patient Records regulations: The Federal rules restrict any use of the information to criminally investigate or prosecute any alcohol or drug abuse patient.[facility] HospitalIn the event this information is protected by the Federal Confidentiality of Alcohol and Drug Abuse Patient Records regulations: The Federal rules restrict any use of the information to criminally investigate or prosecute any alcohol or drug abuse patient.[facility] HospitalIn the event this information is protected by the Federal Confidentiality of Alcohol and Drug Abuse Patient Records regulations: The Federal rules restrict any use of the information to criminally investigate or prosecute any alcohol or drug abuse patient.[facility] HospitalIn the event this information is protected by the Federal Confidentiality of Alcohol and Drug Abuse Patient Records regulations: The Federal rules restrict any use of the information to criminally investigate or prosecute any alcohol or drug abuse patient.[facility] HospitalIn the event this information is protected by the Federal Confidentiality of Alcohol and Drug Abuse Patient Records regulations: The Federal rules restrict any use of the information to criminally investigate or prosecute any alcohol or drug abuse patient.[facility] HospitalIn the event this information is protected by the Federal Confidentiality of Alcohol and Drug Abuse Patient Records regulations: The Federal rules restrict any use of the information to criminally investigate or prosecute any alcohol or drug abuse patient.[facility] HospitalIn the event this information is protected by the Federal Confidentiality of Alcohol and Drug Abuse Patient Records regulations: The Federal rules restrict any use of the information to criminally investigate or prosecute any alcohol or drug abuse patient.[facility] HospitalIn the event this information is protected by the Federal Confidentiality of Alcohol and Drug Abuse Patient Records regulations: The Federal rules restrict any use of the information to criminally investigate or prosecute any alcohol or drug abuse patient.[facility] HospitalIn the event this information is protected by the Federal Confidentiality of Alcohol and Drug Abuse Patient Records regulations: The Federal rules restrict any use of the information to criminally investigate or prosecute any alcohol or drug abuse patient.[facility] HospitalIn the event this information is protected by the Federal Confidentiality of Alcohol and Drug Abuse Patient Records regulations: The Federal rules restrict any use of the information to criminally investigate or prosecute any alcohol or drug abuse patient.[facility] HospitalIn the event this information is protected by the Federal Confidentiality of Alcohol and Drug Abuse Patient Records regulations: The Federal rules restrict any use of the information to criminally investigate or prosecute any alcohol or drug abuse patient.[facility] HospitalIn the event this information is protected by the Federal Confidentiality of Alcohol and Drug Abuse Patient Records regulations: The Federal rules restrict any use of the information to criminally investigate or prosecute any alcohol or drug abuse patient.[facility] HospitalIn the event this information is protected by the Federal Confidentiality of Alcohol and Drug Abuse Patient Records regulations: The Federal rules restrict any use of the information to criminally investigate or prosecute any alcohol or drug abuse patient.[facility] Care Teams (unrecognized sec tion and content) Brim Cutter Relationship Specialty Start Date End Date Herminia Case MD [address] [place] [address] PCP - General Family Practice 12/12/18 Brim Cutter Relationship Specialty Start Date End Date Herminia Case MD [address] [place] [address] PCP - General Family Practice 12/12/18 Brim Cutter Relationship Specialty Start Date End Date Herminia Case MD [address] [place] [address] PCP - General Family Practice 12/12/18 Brim Cutter Relationship Specialty Start Date End Date Herminia Case MD [address] [place] [address] PCP - General Family Practice 12/12/18 Brim Cutter Relationship Specialty Start Date End Date Herminia Case MD [address] [place] [address] PCP - General Family Practice 12/12/18 Brim Cutter Relationship Specialty Start Date End Date Herminia Case MD PCP - General 04/15/15 Brim Cutter Relationship Specialty Start Date End Date Herminia Case MD PCP - General 04/15/15 Brim Cutter Relationship Specialty Start Date End Date Herminia Case MD [address] [place] [address] PCP - General Family Practice 12/12/18 Brim Cutter Relationship Specialty Start Date End Date Herminia Case MD [address] [place] [address] PCP - General Family Practice 12/12/18 Brim Cutter Relationship Specialty Start Date End Date Herminia Case MD [address] [place] [address] PCP - General Family Practice 12/12/18 Brim Cutter Relationship Specialty Start Date End Date Herminia Case MD [address] [place] [address] PCP - General Family Practice 12/12/18 Brim Cutter Relationship Specialty Start Date End Date Herminia Case MD [address] [place] [address] PCP - General Family Medicine 12/12/18 Brim Cutter Relationship Specialty Start Date End Date Herminia Case MD [address] [place] [address] PCP - General Family Medicine 12/12/18 Brim Cutter Relationship Specialty Start Date End Date Herminia Case MD [address] [place] [address] PCP - General Family Medicine 12/12/18 Brim Cutter Relationship Specialty Start Date End Date Herminia Case MD [address] [place] [address] PCP - General Family Medicine 12/12/18 Brim Cutter Relationship Specialty Start Date End Date Herminia Case MD [address] [place] [address] PCP - General Family Medicine 12/12/18 Brim Cutter Relationship Specialty Start Date End Date Herminia Case MD [address] [place] [address] PCP - General Family Medicine 12/12/18 Brim Cutter Relationship Specialty Start Date End Date Herminia Case MD [address] [place] [address] PCP - General Family Medicine 12/12/18 Brim Cutter Relationship Specialty Start Date End Date Herminia Case MD [address] [place] [address] PCP - General Family Medicine 12/12/18 Brim Cutter Relationship Specialty Start Date End Date Herminia Case MD [address] [place] [address] PCP - General Family Medicine 12/12/18 Brim Cutter Relationship Specialty Start Date End Date Herminia Case MD [address] [place] [address] PCP - General Family Medicine 12/12/18 Brim Cutter Relationship Specialty Start Date End Date Herminia Case MD [address] [place] [address] PCP - General Family Medicine 12/12/18 Brim Cutter Relationship Specialty Start Date End Date Herminia Case MD [address] [place] [address] PCP - General Family Medicine 12/12/18 Brim Cutter Relationship Specialty Start Date End Date Herminia Case MD [address] [place] [address] PCP - General Family Medicine 12/12/18 Brim Cutter Relationship Specialty Start Date End Date Herminia Case MD [address] [place] [address] PCP - General Family Medicine 12/12/18 Brim Cutter Relationship Specialty Start Date End Date Herminia Case MD [address] [place] [address] PCP - General Family Medicine 12/12/18 Brim Cutter Relationship Specialty Start Date End Date Herminia Case MD [address] [place] [address] PCP - General Family Medicine 12/12/18 Brim Cutter Relationship Specialty Start Date End Date Herminia Case MD [address] [place] [address] PCP - General Family Medicine 12/12/18 Brim Cutter Relationship Specialty Start Date End Date Herminia Case MD [address] [place] [address] PCP - General Family Medicine 12/12/18 Brim Cutter Relationship Specialty Start Date End Date Herminia Case MD [address] [place] [address] PCP - General 04/15/15 Ziyad Menendez MD [address] [facility] [place] [address] Consulting Physician Gynecologic Oncology 03/12/22 Sally Rocha SOUND PRINTER - DENTIST [address] [place] [address] [address] [place], [place] [id number] Nurse Practitioner Certified Nurse Practitioner 04/21/22 Kisha Pepe SOUND PRINTER - DENTIST [address] [place] [address] [address] [place] [address] Nurse Practitioner Nurse Practitioner 10/20/22 Brim Cutter Relationship Specialty Start Date End Date Herminia Case MD [address] [place] [address] PCP - General Family Medicine 12/12/18 Brim Cutter Relationship Specialty Start Date End Date Herminia Case MD [address] [place] [address] PCP - General Family Medicine 12/12/18 Brim Cutter Relationship Specialty Start Date End Date Herminia Case MD [address] [place] [address] PCP - General 04/15/15 Ziyad Menendez MD [address] [facility] [place] [address] Consulting Physician Gynecologic Oncology 03/12/22 Sally Rocha APRN - DENTIST [address] [place] [address] [address] [place], [place] [id number] Nurse Practitioner Certified Nurse Practitioner 04/21/22 Kisha Pepe APRN - DENTIST [address] [place] [address] [address] [place] [address] Nurse Practitioner Nurse Practitioner 10/20/22 Brim Cutter Relationship Specialty Start Date End Date Herminia Case MD [address] [place] [address] PCP - General Family Medicine 12/12/18 Brim Cutter Relationship Specialty Start Date End Date Herminia Case MD [address] [place] [address] PCP - General 04/15/15 Ziyad Menendez MD 161 [facility], [address] [place] [address] Consulting Physician Gynecologic Oncology 03/12/22 Aj, Sally, SOUND PRINTER - DENTIST [address] [place] [address] Nurse Practitioner Certified Nurse Practitioner 04/21/22 Kisha Pepe APRN - DENTIST [address] [place] [address] Nurse Practitioner Nurse Practitioner 10/20/22 Brim Cutter Relationship Specialty Start Date End Date Herminia Case MD [address] [place] [address] PCP - General Family Medicine 12/12/18 Brim Cutter Relationship Specialty Start Date End Date Herminia Case MD [address] [place] [address] PCP - General Family Medicine 12/12/18 Brim Cutter Relationship Specialty Start Date End Date Herminia Case MD [address] [place] [address] PCP - General Family Medicine 12/12/18 Brim Cutter Relationship Specialty Start Date End Date Herminia Case MD [address] [place] [address] PCP - General Family Medicine 12/12/18 Brim Cutter Relationship Specialty Start Date End Date Herminia Case MD [address] [place] [address] PCP - General Family Medicine 12/12/18 Brim Cutter Relationship Specialty Start Date End Date Herminia Case MD [address] [place] [address] PCP - General Family Medicine 12/12/18 Brim Cutter Relationship Specialty Start Date End Date Herminia Case MD [address] [place] [address] PCP - General Family Medicine 12/12/18 Brim Cutter Relationship Specialty Start Date End Date Herminia Case MD [address] [place] [address] PCP - General Family Medicine 12/12/18 Brim Cutter Relationship Specialty Start Date End Date Herminia Case MD [address] [place] [address] PCP - General Family Medicine 12/12/18 Brim Cutter Relationship Specialty Start Date End Date Herminia Case MD [address] [place] [address] PCP - General Family Medicine 12/12/18 Brim Cutter Relationship Specialty Start Date End Date Herminia Case MD [address] [place] [address] PCP - General Family Medicine 12/12/18 Brim Cutter Relationship Specialty Start Date End Date Herminia Case MD [address] [place] [address] PCP - General 04/15/15 Ziyad Menendez MD 161 [facility] 298 [place] [address] Consulting Physician Gynecologic Oncology 03/12/22 Sally Rocha, SOUND PRINTER - DENTIST 161 [facility] 295 [place] [address] Nurse Practitioner Certified Nurse Practitioner 04/21/22 Kisha Pepe APRN - DENTIST 161 [facility] 298 [place] [address] Nurse Practitioner Nurse Practitioner 10/20/22 Brim Cutter Relationship Specialty Start Date End Date Herminia Case MD [address] [place] [address] PCP - General Family Medicine 12/12/18 Brim Cutter Relationship Specialty Start Date End Date Herminia Case MD [address] [place] [address] PCP - General Family Medicine 12/12/18 Brim Cutter Relationship Specialty Start Date End Date Herminia Case MD [address] [place] [address] PCP - General 04/15/15 Ziyad Menendez MD [address] [address] Consulting Physician Gynecologic Oncology 03/12/22 Sally Rocha SOUND PRINTER - DENTIST 161 [facility] 295 [place] [address] Nurse Practitioner Certified Nurse Practitioner 04/21/22 Kisha Pepe SOUND PRINTER - DENTIST 161 [facility] 298 [place] [address] Nurse Practitioner Nurse Practitioner 10/20/22 Brim Cutter Relationship Specialty Start Date End Date Herminia Case MD [address] [place] [address] PCP - General Family Medicine 12/12/18 Brim Cutter Relationship Specialty Start Date End Date Herminia Case MD [address] [place] [address] PCP - General Family Medicine 12/12/18 Brim Cutter Relationship Specialty Start Date End Date Herminia Case MD [address] [place] [address] PCP - General Family Medicine 12/12/18 Brim Cutter Relationship Specialty Start Date End Date Herminia Case MD [address] [place] [address] PCP - General Family Medicine 12/12/18 Brim Cutter Relationship Specialty Start Date End Date Herminia Case MD [address] [place] [address] PCP - General Family Medicine 12/12/18 Brim Cutter Relationship Specialty Start Date End Date Herminia Case MD [address] [place] [address] PCP - General Family Medicine 12/12/18 Brim Cutter Relationship Specialty Start Date End Date Herminia Case MD [address] [place] [address] PCP - General Family Medicine 12/12/18 Brim Cutter Relationship Specialty Start Date End Date Herminia Case MD [address] [place] [address] PCP - General Family Medicine 12/12/18 Brim Cutter Relationship Specialty Start Date End Date Herminia Case MD [address] [place] [address] PCP - General Family Medicine 12/12/18 Brim Cutter Relationship Specialty Start Date End Date Herminia Case MD [address] [place] [address] PCP - General Family Medicine 12/12/18 Brim Cutter Relationship Specialty Start Date End Date Herminia Case MD [address] [place] [address] PCP - General Family Medicine 12/12/18 Brim Cutter Relationship Specialty Start Date End Date Herminia Case MD [address] [place], [place] [id number] PCP - General 04/15/15 Ziyad Menendez MD 161 [facility] 295 [place] [address] Consulting Physician Gynecologic Oncology 03/12/22 Sally Rocha APRN - DENTIST 161 [facility] 295 [place] [address] Nurse Practitioner Certified Nurse Practitioner 04/21/22 Kisha Pepe SOUND PRINTER - DENTIST 161 [facility] [address] [place] [address] Nurse Practitioner Nurse Practitioner 10/20/22 Brim Cutter Relationship Specialty Start Date End Date Herminia aCse MD [address] [place] [address] PCP - General Family Medicine 12/12/18 Brim Cutter Relationship Specialty Start Date End Date Herminia Case MD [address] [place] [address] PCP - General Family Medicine 12/12/18 Brim Cutter Relationship Specialty Start Date End Date Herminia Case MD [address] [place] [address] PCP - General 04/15/15 Ziyad Menendez MD [address] [facility] [address] [place] [address] Consulting Physician Gynecologic Oncology 03/12/22 Sally Rocha APRN - DENTIST 161 [facility] [address] [place] [address] Nurse Practitioner Certified Nurse Practitioner 04/21/22 Kisha Pepe APRN - DENTIST 161 [facility]. [address] [place] [address] Nurse Practitioner Nurse Practitioner 10/20/22 Brim Cutter Relationship Specialty Start Date End Date Herminia Case MD [address] [place] [address] PCP - General Family Medicine 12/12/18 Brim Cutter Relationship Specialty Start Date End Date Herminia Case MD [address] [place] [address] PCP - General 04/15/15 Ziyad Menendez MD [address] [facility] [address] [place] [address] Consulting Physician Gynecologic Oncology 03/12/22 Sally Rocha APRN - DENTIST [address] [facility] 295 [place] [address] Nurse Practitioner Certified Nurse Practitioner 04/21/22 Kisha Pepe APRN - DENTIST [address] [place] [address] [address] [place] [address] Nurse Practitioner Nurse Practitioner 10/20/22 Brim Cutter Relationship Specialty Start Date End Date Herminia Case MD [address] [place] [address] PCP - General Family Medicine 12/12/18 Brim Cutter Relationship Specialty Start Date End Date Herminia Case MD [address] [place] [address] PCP - General 04/15/15 Ziyad Menendez MD [address] [place] [address], [address] [place] [address] Consulting Physician Gynecologic Oncology 03/12/22 Sally Rocha, SOUND PRINTER - DENTIST [address] [place] [address] Nurse Practitioner Certified Nurse Practitioner 04/21/22 Brim Cutter Relationship Specialty Start Date End Date Herminia Case MD [address] [place] [address] PCP - General 04/15/15 Ziyad Menendez MD [address] [place] [address], [address] [place] [address] Consulting Physician Gynecologic Oncology 03/12/22 Sally Rocha, SOUND PRINTER - DENTIST 161 [facility] 298 [place] [address] Nurse Practitioner Certified Nurse Practitioner 04/21/22 Brim Cutter Relationship Specialty Start Date End Date Herminia Case MD [address] [place] [address] PCP - General Family Medicine 12/12/18 Melva Juárez PA-C [address] [place] [address] Trading Analyst Family [facility] 02/26/24 Brim Cutter Relationship Specialty Start Date End Date Herminia Case MD [address] [place] [address] PCP - General Family Medicine 12/12/18 Melva Juárez PA-C [address] [place] [address] [facility] 02/26/24 Brim Cutter Relationship Specialty Start Date End Date Herminia Case MD [address] [place] [address] PCP - General Family Medicine 12/12/18 Melva Juárez PA-C [address] [place] [address] Trading Analyst Family [facility] 02/26/24 Brim Cutter Relationship Specialty Start Date End Date Herminia Case MD [address] [place] [address] PCP - General Family Medicine 12/12/18 Melva Juárez PA-C [address] [place] [address] Trading Analyst Family [facility] 02/26/24 Brim Cutter Relationship Specialty Start Date End Date Herminia Case MD [address] [place] [address] PCP - General Family Medicine 12/12/18 Melva Juárez PA-C [address] [place] [address] Trading Analyst Family [facility] 02/26/24 Brim Cutter Relationship Specialty Start Date End Date Herminia Case MD [address] [place] [address] PCP - General Family Medicine 12/12/18 Melva Juárez PA-C [address] [place] [address] Trading Analyst Family Medicine 02/26/24 Brim Cutter Relationship Specialty Start Date End Date Herminia Case MD [address] [place] [address] PCP - General 04/15/15 Ziyad Menendez MD 161 [facility] 295 [place] [address] Consulting Physician Gynecologic Oncology 03/12/22 Sally Rocha APRN - DENTIST 161 [facility] 295 [place] [address] Nurse Practitioner Certified Nurse Practitioner 04/21/22 Kisha Pepe APRN - DENTIST 161 [facility] 298 [place] [address] Nurse Practitioner Nurse Practitioner 10/20/22 Brim Cutter Relationship Specialty Start Date End Date Herminia Case MD [address] [place] [address] PCP - General Family Medicine 12/12/18 Melva Juárez PA-C [address] [place] [address] Trading Analyst Family Medicine 02/26/24 Brim Cutter Relationship Specialty Start Date End Date Herminia Case MD [address] [place] [address] PCP - General Family Medicine 12/12/18 Melva Juárez PA-C [address] [place] [address] Trading Analyst Family Medicine 02/26/24 Brim Cutter Relationship Specialty Start Date End Date Herminia Case MD [address] [place] [address] PCP - General Family Medicine 12/12/18 Melva Juárez PA-C [address] [place] [address] Trading Analyst Family Medicine 02/26/24 Herminia Case MD [address] [place] [address] Home Care Provider Family Medicine 06/07/24 Herminia Case MD [address] [place] [address] Referring Family Medicine 06/07/24 Brim Cutter Relationship Specialty Start Date End Date Herminia Case MD [address] [place] [address] PCP - General Family Medicine 12/12/18 Melva Juárez PA-C [address] [place] [address] Trading Analyst Family Medicine 02/26/24 Herminia Case MD [address] [place] [address] Home Care Provider Family Medicine 06/07/24 Herminia Case MD [address] [place] [address] Referring Family Medicine 06/07/24 Brim Cutter Relationship Specialty Start Date End Date Herminia Case MD [address] [place] [address] PCP - General Family Medicine 12/12/18 Melva Juárez PA-C [address] [place] [address] Trading Analyst Family Medicine 02/26/24 Herminia Case MD [address] [place] [address] Home Care Provider Family Medicine 06/07/24 Herminia Case MD [address] [place] [address] Referring Family Medicine 06/07/24 Brim Cutter Relationship Specialty Start Date End Date Herminia Case MD [address] [place] [address] PCP - General Family Medicine 12/12/18 Melva Juárez PA-C [address] [place] [address] Trading Analyst Family Medicine 02/26/24 Herminia Case MD [address] [place] [address] Home Care Provider Family Medicine 06/07/24 Herminia Case MD [address] [place] [address] Referring Family Medicine 06/07/24 Brim Cutter Relationship Specialty Start Date End Date Herminia Case MD [address] [place] [address] PCP - General Family Medicine 12/12/18 Melva Juárez PA-C [address] [place] [address] Trading Analyst Family Medicine 02/26/24 Herminia Case MD [address] [place] [address] Home Care Provider Family Medicine 06/07/24 Herminia Case MD [address] [place] [address] Referring Family Medicine 06/07/24 Brim Cutter Relationship Specialty Start Date End Date Herminia Case MD [address] [place] [address] PCP - General Family Medicine 12/12/18 Melva Juárez PA-C [address] [place] [address] Trading Analyst Family Medicine 02/26/24 Herminia Case MD [address] [place] [address] Home Care Provider Family Medicine 06/07/24 Herminia Case MD [address] [place] [address] Referring Family Medicine 06/07/24 Brim Cutter Relationship Specialty Start Date End Date Herminia Case MD [address] [place] [address] PCP - General Family Medicine 12/12/18 Melva Juárez PA-C [address] [place] [address] Trading Analyst Family Medicine 02/26/24 Herminia Case MD [address] [place] [address] Home Care Provider Family Medicine 06/07/24 Herminia Case MD [address] [place] [address] Referring Family Medicine 06/07/24 Brim Cutter Relationship Specialty Start Date End Date Herminia Case MD [address] [place] [address] PCP - General 04/15/15 Ziyad Menendez MD [address] [address] Consulting Physician Gynecologic Oncology 03/12/22 Sally Rocha APRN - CNP 161 [facility] 295 [place] [address] Nurse Practitioner Certified Nurse Practitioner 04/21/22 Kisha Pepe APRN - CNP 161 [facility] 298 [place] [address] Nurse Practitioner Nurse Practitioner 10/20/22 Brim Cutter Relationship Specialty Start Date End Date Herminia Case MD [address] [place], [place] [id number] PCP - General 04/15/15 Ziyad Menendez MD 161 [facility] 295 [place] [address] Consulting Physician Gynecologic Oncology 03/12/22 Sally Rocha APRN - CNP 161 [facility] 295 [place] [address] Nurse Practitioner Certified Nurse Practitioner 04/21/22 Kisha Pepe APRN - CNP 161 [facility] 298 [place] [address] Nurse Practitioner Nurse Practitioner 10/20/22 Brim Cutter Relationship Specialty Start Date End Date Herminia Case MD [address] [place], [place] [id number] PCP - General Family Medicine 12/12/18 Melva Juárez PA-C [address] [place], [place] [id number] Trading Analyst Family Medicine 02/26/24 Herminia Case MD [address] [place] [address] Home Care Provider Family Medicine 06/07/24 Herminia Case MD [address] [place] [address] Referring Family Medicine 06/07/24 Brim Cutter Relationship Specialty Start Date End Date Herminia Case MD [address] [place], [place] [address] PCP - General 04/15/15 Ziyad Menendez MD 161 [facility] 295 [place] [address] Consulting Physician Gynecologic Oncology 03/12/22 Sally Rocha APRN - DENTIST 161 [facility] 295 [place], [place] [id number] Nurse Practitioner Certified Nurse Practitioner 04/21/22 Kisha Pepe APRN - DENTIST 161 [facility] 298 [place] [address] Nurse Practitioner Nurse Practitioner 10/20/22 Brim Cutter Relationship Specialty Start Date End Date Herminia Case MD [address] [place] [address] PCP - General Family Medicine 12/12/18 Melva Juárez PA-C [address] [place] [address] Trading Analyst Family Medicine 02/26/24 Herminia Case MD [address] [place] [address] Home Care Provider Family Medicine 06/07/24 Herminia Case MD [address] [place] [address] Referring Family Medicine 06/07/24 Brim Cutter Relationship Specialty Start Date End Date Herminia Case MD [address] [place] [address] PCP - General 04/15/15 Ziyad Menendez MD 161 [facility] 295 [place] [address] Consulting Physician Gynecologic Oncology 03/12/22 Sally Rocha APRN - DENTIST 161 [facility] [address] [place] [address] Nurse Practitioner Certified Nurse Practitioner 04/21/22 Kisha Pepe APRN - DENTIST 161 [facility] [address] [place] [address] Nurse Practitioner Nurse Practitioner 10/20/22 Brim Cutter Relationship Specialty Start Date End Date Herminia Case MD [address] [place] [address] PCP - General 04/15/15 Ziyad Menendez MD 161 [facility] [address] [place] [address] Consulting Physician Gynecologic Oncology 03/12/22 Sally Rocha APRN - DENTIST 161 [facility] [address] [place] [address] Nurse Practitioner Certified Nurse Practitioner 04/21/22 Kisha Pepe APRN - CNP 161 [facility] [address] [place] [address] Nurse Practitioner Nurse Practitioner 10/20/22 Brim Cutter Relationship Specialty Start Date End Date Herminia Case MD [address] [place] [address] PCP - General 04/15/15 Ziyad Menendez MD 161 [facility] [address] [place] [address] Consulting Physician Gynecologic Oncology 03/12/22 Sally Rocha APRN - DENTIST [address] [place] [address] [address] [place] [address] Nurse Practitioner Certified Nurse Practitioner 04/21/22 Kisha Pepe APRN - CNP [address] [place] [address] [address] [place] [address] Nurse Practitioner Nurse Practitioner 10/20/22 Team Status: [...] September 17, 2024 End: September 17, 2024 Brim Cutter Relationship Specialty Start Date End Date Herminia Case MD [address] [place] [address] PCP - General 04/15/15 Ziyad Menendez MD 161 [facility] [address] [place] [address] Consulting Physician Gynecologic Oncology 03/12/22 Sally Rocha APRN - DENTIST 161 [facility] [address] [place] [address] Nurse Practitioner Certified Nurse Practitioner 04/21/22 Kisha Pepe APRN - DENTIST 161 [facility] [place] [address] Nurse Practitioner Nurse Practitioner 10/20/22 Brim Cutter Relationship Specialty Start Date End Date Herminia Case MD [address] [place] [address] PCP - General 04/15/15 Ziyad Menendez MD 161 [facility] [address] [place] [address] Consulting Physician Gynecologic Oncology 03/12/22 Sally Rocha APRN - DENTIST 161 [facility] [address] [place] [address] Nurse Practitioner Certified Nurse Practitioner 04/21/22 Kisha Pepe APRN - DENTIST 161 [facility] [place] [address] Nurse Practitioner Nurse Practitioner 10/20/22 Brim Cutter Relationship Specialty Start Date End Date Herminia Case MD [address] [place] [address] PCP - General 04/15/15 Ziyad Menendez MD [address] [place] [address] Consulting Physician Gynecologic Oncology 03/12/22 Sally Rocha APRN - DENTIST [address] [place] [address] Nurse Practitioner Certified Nurse Practitioner 04/21/22 Kisha Pepe APRN - DENTIST [address] [facility] [place] [address] Nurse Practitioner Nurse Practitioner 10/20/22 Brim Cutter Relationship Specialty Start Date End Date Herminia Case MD [address] [place] [address] PCP - General 04/15/15 Ziyad Menendez MD [address] [facility] [address] [place] [address] Consulting Physician Gynecologic Oncology 03/12/22 Sally Rocha APRN - DENTIST [address] [place] [address] Nurse Practitioner Certified Nurse Practitioner 04/21/22 Kisha Pepe APRN - DENTIST [address] [facility] [place] [address] Nurse Practitioner Nurse Practitioner 10/20/22 Brim Cutter Relationship Specialty Start Date End Date Herminia Case MD [address] [place], [place] [id number] PCP - General 04/15/15 Ziyad Menendez MD [address] [facility] [address] [place], [place] [id number] Consulting Physician Gynecologic Oncology 03/12/22 Sally Rocha APRN - DENTIST [address] [facility] [address] [place], [place] [address] Nurse Practitioner Certified Nurse Practitioner 04/21/22 Kisha Pepe APRN - DENTIST [address] [facility] [place] [address] Nurse Practitioner Nurse Practitioner 10/20/22 Brim Cutter Relationship Specialty Start Date End Date Herminia Case MD [address] [place] [address] PCP - General 04/15/15 Ziyad Menendez MD [address] [facility] [address] [place] [address] Consulting Physician Gynecologic Oncology 03/12/22 Sally Rocha APRN - DENTIST [address] [facility] [address] [place] [address] Nurse Practitioner Certified Nurse Practitioner 04/21/22 Kisha Pepe APRN - DENTIST [address] [facility] [place] [address] Nurse Practitioner Nurse Practitioner 10/20/22 Goals (unrecognized [...] BE BASED ON THE PRIMARY CLINICAL RECORDS. [facility]. provides no warranty or guarantee of the accuracy or completeness of information in this document.
[2025-03-11 08:10] LABS: Hematocrit 34.7 % (37-47); Hemoglobin 10.5 g/dL (12.0-15.0); Mean Corp Hgb Conc 30.3 g/dL (32-36); Mean Corpuscular Volume 96.7 fL (81-99); Mean Platelet Vol. 9.4 fl (6.2-12.0); Platelet Count 247 K/mm3 (150-450); RBC Distribution Width CV 12.9 % (11.6-14.6); RBC Distribution Width SD 45.6 fl (35.1-43.9); Red Blood Count 3.59 M/mm3 (4.2-5.4); White Blood Count 7.8 K/mm3 (4.4-11.0)
[2025-03-11 08:30] LABS: Anion Gap 6 (5-15); BUN 14 mg/dL (4-19); BUN/Creat Ratio 21.4 RATIO (10-20); Calcium,Total 9.0 mg/dL (7.6-11.0); Carbon Dioxide 33.5 mmol/L (21.0-32.0); Chloride 102 mmol/L (98-108); Glucose 82 mg/dL (70-99); Potassium 4.0 mmol/L (3.3-5.1)
== END ==
LOC: OLS.SANC 05:00
PROVIDERS: Visit Provider Internal Medicine
DX: J44.9 Chronic obstructive pulmonary disease, unspecified (principal)
CPT/HCPCS: 36415; 80048; 85027